=== PATIENT | female | born 1955 | race Caucasian/White ===

== ENCOUNTER 2017-07-28 19:44 | Observation (INO) | payer MEDICAID ==
--- OUTSIDE RECORDS SUMMARY | 2017-07-28 19:47 | XMS REPORT | Clinical Summary ---
:1955 Author Organization [facility] Address [address] [place] [address] Phone Care Team Providers Name Role Phone Unavailable Primary Care Provider Unavailable Allergies Active Allergy Reactions Severity Noted Date Comments Amoxicillin-Pot Clavulanate Diarrhea High 04/21/2017 Basil Swelling High 04/21/2017 Morphine Anaphylaxis High 04/21/2017 Nitroglycerin Nausea And Vomiting High 04/21/2017 IV NITRO ONLY Vancomycin Analogues Nausea And Vomiting High 04/21/2017 Trazodone Nausea And Vomiting 05/12/2017 Current Medications Prescription Sig. Disp. Refills Start End Date Status Date aspirin 81 MG EC Take 81 mg by Active tablet mouth daily. melatonin 3 mg Tab Take 1 tablet (3 30 tablet 0 Active tablet mg total) by mouth 8 nightly. acetaminophen Take 2 tablets 30 tablet 0 05/27/19 Active (TYLENOL) 325 MG (650 mg total) by 8 19 tablet mouth every 6 (six) hours as needed for Pain for up to 360 days. albuterol-ipratrop Inhale 2 puffs by 4 g 0 Active ium (COMBIVENT mouth via inhaler 8 RESPIMAT) 20-100 every 6 (six) mcg/actuation Mist hours. inhaler fluticasone Inhale 1 puff by 1 Inhaler 0 Active (FLOVENT HFA) 110 mouth via inhaler 8 mcg/actuation 2 (two) times inhaler daily. insulin detemir Inject 0.05 mLs (5 1 packet 0 Active (LEVEMIR FLEXPEN) Units total) 8 100 unit/mL (3 mL) subcutaneously InPn injection every morning. collagenase Apply topically 15 g 0 Active (SANTYL) 250 daily. 8 units/g ointment pen needle, Use as directed to 100 each 0 Active diabetic 29 gauge inject long and 8 Ndle short acting insulin.. carvedilol (COREG) Take 1 tablet 60 tablet 0 Active 12.5 MG tablet (12.5 mg total) by 8 mouth 2 (two) times daily. NIFEdipine (ADALAT Take 1 tablet (60 30 tablet 0 Active CC) 60 MG 24 hr mg total) by mouth 8 tablet daily Blood pressure. hydrALAZINE Take 1 tablet (50 120 tablet 0 Active (APRESOLINE) 50 MG mg total) by mouth 8 tablet every 8 (eight) hours Blood pressure. gabapentin Take 1 capsule 90 capsule 0 Active (NEURONTIN) 100 MG (100 mg total) by 8 capsule mouth 3 (three) times daily. torsemide Take 2 tablets (40 60 tablet 0 Active (DEMADEX) 20 MG mg total) by mouth 8 tablet 2 (two) times daily. atorvastatin Take 1 tablet (40 30 tablet 0 Active (LIPITOR) 40 MG mg total) by mouth 8 tablet daily. clopidogrel Take 1 tablet (75 30 tablet 0 Active (PLAVIX) 75 mg mg total) by mouth 8 tablet daily. NICOTINE (NICODERM Place onto the Active CQ TD) skin. lisinopril Take 40 mg by 06/02/19 Discontinued (PRINIVIL,ZESTRIL) mouth daily. 18 40 MG tablet dilTIAZem Take 180 mg by 04/23/19 Discontinued (CARDIZEM CD) 180 mouth daily. 18 MG 24 hr capsule gabapentin Take 100 mg by 06/02/19 Discontinued (NEURONTIN) 100 MG mouth 3 (three) 18 capsule times daily. clopidogrel Take 75 mg by 06/02/19 Discontinued (PLAVIX) 75 mg mouth daily. 18 tablet furosemide (LASIX) Take 40 mg by 06/02/19 Discontinued 40 MG tablet mouth 2 (two) 18 times daily. atorvastatin Take 40 mg by 06/02/19 Discontinued (LIPITOR) 40 MG mouth daily. 18 tablet insulin detemir Inject 30 Units 06/02/19 Discontinued (LEVEMIR) 100 subcutaneously 18 unit/mL injection daily. carvedilol (COREG) Take 1 tablet (25 60 tablet 5 06/02/19 Discontinued 25 MG tablet mg total) by mouth 8 18 2 (two) times daily. nicotine (NICODERM Place 1 patch onto 28 patch 0 06/02/19 Discontinued CQ) 21 mg/24 hr the skin daily for 8 18 patch 30 days. HYDROcodone-acetam Take 1 tablet by 15 tablet 0 06/12/19 inophen (NORCO mouth every 4 8 18 10-325) 10-325 mg (four) hours as per tablet needed for up to 10 days. Max Daily Amount: 6 tablets atorvastatin Take 1 tablet (40 30 tablet 0 07/08/19 Discontinued (LIPITOR) 40 MG mg total) by mouth 8 18 tablet daily. carvedilol (COREG) Take 1 tablet 60 tablet 5 07/08/19 Discontinued 12.5 MG tablet (12.5 mg total) by 8 18 mouth 2 (two) times daily. gabapentin Take 1 capsule 90 capsule 0 07/08/19 Discontinued (NEURONTIN) 100 MG (100 mg total) by 8 18 capsule mouth 3 (three) times daily. torsemide Take 1 tablet (20 60 tablet 0 06/11/19 Discontinued (DEMADEX) 20 MG mg total) by mouth 8 18 tablet 2 (two) times daily Take instead of furosemide. hydrALAZINE Take 1 tablet (50 120 tablet 0 07/08/19 Discontinued (APRESOLINE) 50 MG mg total) by mouth 8 18 tablet every 8 (eight) hours Blood pressure. NIFEdipine (ADALAT Take 1 tablet (60 30 tablet 0 07/08/19 Discontinued CC) 60 MG 24 hr mg total) by mouth 8 18 tablet daily Blood pressure. insulin aspart Short-acting 1 Syringe 0 06/11/19 Discontinued (NOVOLOG) 100 insulin - use 8 18 unit/mL InPn according to sliding scale in patient instructions.. nicotine (NICODERM Place 1 patch onto 28 patch 0 07/02/19 CQ) 21 mg/24 hr the skin daily for 8 18 patch 30 days. clopidogrel Take 1 tablet (75 30 tablet 0 07/08/19 Discontinued (PLAVIX) 75 mg mg total) by mouth 8 18 tablet daily. torsemide Take 2 tablets (40 60 tablet 0 07/08/19 Discontinued (DEMADEX) 20 MG mg total) by mouth 8 18 tablet 2 (two) times daily. magnesium oxide Take 1 tablet (400 30 tablet 0 07/11/19 (MAG-OX) 400 mg mg total) by mouth 8 18 tablet daily for 30 days. Hospital, Clinic, or Other Ordered Dose Route Frequency Start Date End Date Status Facility Administered Medication bumetanide (BUMEX) 2 MG IV Once 06/10/2017 06/10/2017 Ended injection 2 mg Active Problems Problem Noted Date Chronic diastolic CHF (congestive heart failure) ([facility]) 06/10/2017 PVD (peripheral vascular disease) ([facility]) 05/27/2017 S/P CABG (coronary artery bypass graft) 05/26/2017 Normocytic anemia 05/26/2017 Severe protein-calorie malnutrition ([facility]) 05/23/2017 Chronic kidney disease, stage 3 05/21/2017 CAD (coronary artery disease) 05/20/2017 Overview: S/p CABG- PRITCHETT-LAD,SVG-PDA,ramus,OM3 on 05/20/17 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 ([facility]) 05/19/2017 Overview: RLE PVD COPD (chronic obstructive pulmonary disease) ([facility]) 05/14/2017 Controlled type 2 diabetes mellitus with complication, without long-term 05/14 current use of insulin ([facility]) Smoker 05/14/2017 Frequent PVCs 05/12/2017 Resolved Problems Problem Noted Date Resolved Date Recurrent right pleural effusion 05/27/2017 06/10/2017 Diarrhea 05/26/2017 06/10/2017 Chronotropic incompetence 05/21/2017 06/10/2017 Cardiogenic shock ([facility]) 05/21/2017 06/10/2017 Acute kidney injury (nontraumatic) ([facility]) 05/21/2017 06/10/2017 Acute blood loss anemia 05/21/2017 06/10/2017 Acute respiratory failure with hypoxemia ([facility]) 05/21/2017 06/10/2017 Hyperchloremic metabolic acidosis 05/21/2017 06/10/2017 SIRS (systemic inflammatory response syndrome) (HCC) 05/21/2017 06/10/2017 Coronary artery disease involving [place] coronary artery of 05/19/20172017 [place] heart without angina pectoris CHF (congestive heart failure) ([facility]) 05/14/2017 06/10/2017 Acute on chronic respiratory failure with hypoxia (HCC) 05/14/2017 06/10/2017 Benign hypertension with chronic kidney disease, stage III 04/22/20172017 Bigeminal rhythm 04/21/2017 06/10/2017 Respiratory insufficiency 06/10/2017 Encounters Date Type Specialty Care Team Description 07/24/2017 Office Visit Cardiology Mariela Verduzco MD 07/07/2017 Telephone Cardiology Jean Monroe NP Medication Refill 06/10/2017 Office Visit Cardiology Jean Monroe NP Acute on chronic diastolic ACC/AHA stage C congestive heart failure (HCC) 05/28/2017 Procedure Pass 05/27/2017 Procedure Pass 05/27/2017 Surgery Kelly Chang PERIPHERAL ANGIOS / AORTOGRAM 05/23/2017 Orders Only General Internal Medicine 05/20/2017 Procedure Pass 05/20/2017 Surgery Mariela Verduzco BYPASS,AORTO MD [place] CORONARY TYLER/SVG 05/20/2017 Procedure Pass 05/19/2017 Anesthesia Event Ministerio Yeboah MD 05/19/2017 Orders Only Faviola Nascimento MD 05/16/2017 Procedure Pass 05/16/2017 Surgery Kelly Chang L CATH & PCI 05/16/2017 Procedure Pass 05/12/2017 - Hospital Encounter Cardiology Marquez Powers, Bigeminal rhythm 06/01/2017 Sandra Carter MD (Primary Dx);Chronic lea Solano MD pulmonary disease, Kaylyn, unspecified COPD trinh Echeverria MD ([facility]);Smoker;Acute Alex Juarez on chronic MD respiratory failure with hypoxia ([facility]);Acute blood loss anemia;Acute kidney injury (nontraumatic) ([facility]);Acute respiratory failure with hypoxemia ([facility]);S/P CABG x 4;Cardiogenic shock ([facility]);Chronotropic incompetence;Hyperch loremic metabolic acidosis;SIRS (systemic inflammatory response syndrome) ([facility]) 05/12/2017 Anesthesia Event Fer Wood MD 05/12/2017 Orders Only General Internal Medicine 05/12/2017 Procedure Pass 05/12/2017 Surgery Marquez Powers, JENNIFER & ABLATION Sandra Carter MD 04/21/2017 - Hospital Encounter Cardiology Marilee Appleeminal 04/23/2017 MD Mary rhythm;Diabetic Madelin Winchester MD associated with type 2 diabetes mellitus (HCC);Coronary artery disease involving [place] heart without angina pectoris, unspecified vessel or lesion type;Type 2 diabetes mellitus with diabetic nephropathy, with long-term current use of insulin (HCC);Essential hypertension after 07/27/2016 Family History Medical History Relation Name Comments COPD Father Cancer Father Hypertension Father No Known Problem Mother Relation Name Status Comments Father Mother Social History Tobacco Use Types Packs/Day Years Used Date Former Smoker 1 34 Quit: 05/12/2017 Smokeless Tobacco: Never Used Tobacco Cessation: Counseling Given: Yes Alcohol Use Drinks/Week oz/Week Comments No Sex Assigned at Date Recorded Not on file Last Filed Vital Signs Vital Sign Reading Time Taken Blood Pressure 119/56 07/24/2017 11:16 AM CDT Pulse 66 06/01/2017 3:05 PM CASH PROCESSING SPECIALIST Temperature 36.7 C (98 F) 07/24/2017 11:16 AM CDT Respiratory Rate 18 07/24/2017 11:16 AM CDT Oxygen Saturation 96% 07/24/2017 11:16 AM CDT Inhaled Oxygen Concentration - - Weight 73.7 kg (162 lb 6.4 oz) 07/24/2017 11:16 AM CDT Height 170.2 cm (5' 7") 07/24/2017 11:16 AM CDT Body Mass Index 25.44 07/24/2017 11:16 AM CDT Plan of Treatment Date Type Specialty Care Team Description 08/05/2017 Surgery Mariela Verduzco BYPASS,FEMORAL-POPLITEAL MD [place] [address] [facility] [address] [place] [address] 08/05/2017 Procedure Pass 08/05/2017 Hospital Encounter Mariela Verduzco MD [address] [facility] [address] [place] [address] Health Maintenance Due Date Last Done Comments INFLUENZA VACCINE 12/29/2017 Implants Implanted Type Area Lease Attendant Device Expiration Model / Identifier Date Serial / Lot Device Clsr Angio-Seal Vip 8fr [id number] - [id number] Cardiovascular N/A: [employer] 01/28/2018 [id number] / Implanted: Qty: 1 on 05/12/2017 by Sandra Gaytan MD [place] MED:CARDIAC / SURG [id number] Procedures Procedure Name Priority Date/Time Associated Diagnosis Comments PERIPHERAL ANGIOS / 05/27/2017 2:53 PM chest pain AORTOGRAM CASH PROCESSING SPECIALIST DAVIS 05/20/2017 9:05 AM CAOD CASH PROCESSING SPECIALIST ENDOSCOPIC HARVEST,VEIN 05/20/2017 9:05 AM CAOD CASH PROCESSING SPECIALIST BYPASS,AORTO CORONARY 05/20/2017 9:05 AM CAOD TYLER/SVG CASH PROCESSING SPECIALIST L CATH & PCI 05/16/2017 4:42 PM chest pain CASH PROCESSING SPECIALIST EPS & ABLATION 05/12/2017 7:38 PM R49.3-PVC CASH PROCESSING SPECIALIST Case Notes EPS/ABLATION PVC WITH CARTO SOUND Special Needs [facility] [phone]/[facility] after 07/27/2016 Results VASCULAR DIAGRAM -SCAN (07/11/2017 3:30 PM)Only the most recent of6 resultswithin the time period is included.B N P (06/10/2017 12:06 PM)Only the most recent of4 resultswithin the time period is included. Component Value Ref Range BNP 1264 (H) 0 - 100 pg/mL Specimen Performing Laboratory Blood [address] [address] Magnesium (06/10/2017 12:06 PM)Only the most recent of23 resultswithin the time period is included. Component Value Ref Range Magnesium 1.6 1.6 - 2.6 mg/dL Specimen Performing Laboratory Blood [address] [address] Basic Metabolic Panel (06/10/2017 12:06 PM)Only the most recent of25 resultswithin the time period is included. Component Value Ref Range Sodium 137 136 - 145 meq/L Potassium 5.4 (H) 3.5 - 5.1 meq/L Chloride 108 (H) 98 - 107 meq/L CO2 21 (L) 22 - 29 meq/L BUN 39 (H) 7 - 21 mg/dL Creatinine 1.49 (H) 0.57 - 1.25 mg/dL Glucose 219 (H) 70 - 105 mg/dL Calcium 8.5 8.4 - 10.2 mg/dL EGFR 35Comment: ESTIMATED GFR IS NOT ACCURATE mL/min/1.73 sq m CREATININE CLEARANCE IN PREDICTING GLOMERULAR FILTRATION RATE. ESTIMATED GFR IS NOT APPLICABLE FOR DIALYSIS PATIENTS. Specimen Performing Laboratory [address] [address] RHYTHM STRIP - SCAN (06/05/2017 12:40 PM)Only the most recent of5 resultswithin the time period is included.POC-Glucose meter (06/01/2017 11:48 AM)Only the most recent of80 resultswithin the time period is included. Component Value Ref Range POC-Glucose Meter 274 (H)Comment: TESTED AT [address] 70 - 110 mg/[place] [address] Specimen Performing Laboratory [address] [address] CBC (Hemogram only) (06/01/2017 4:07 AM)Only the most recent of2 resultswithin the time period is included. Component Value Ref Range WBC 6.4 3.5 - 10.5 K/L RBC 3.38 (L) 3.93 - 5.22 M/L Hemoglobin 8.7 (L) 11.2 - 15.7 GM/DL Hematocrit 28.2 (L) 34.1 - 44.9 % MCV 83.4 79.4 - 94.8 fL MCH 25.7 25.6 - 32.2 pg MCHC 30.9 (L) 32.2 - 35.5 GM/DL RDW 15.2 (H) 11.7 - 14.4 % Platelets 320 150 - 450 K/CU MM MPV 9.5 9.4 - 12.3 fL nRBC 0 0 - 0 /100 WBC Specimen Performing Laboratory Blood [address] [address] XR chest 1 view portable / bedside (05/31/2017 5:46 AM)Only the most recent of16 resultswithin the time period is included. Specimen Performing Laboratory GE RIS Narrative FINAL REPORT CHEST ONE VIEW HISTORY: Status post ACB COMPARISON: 05/30/2017 FINDINGS: Single portable AP examination of the chest was performed. Small pleural effusions and mild bibasilar atelectasis have improved since yesterday's study. Interstitial opacities in the lungs, unchanged, suggestive of mild residual edema. Cardiac shadow partially obscured. Sternotomy wires are present. No pneumothorax. Signed: Lynda Ring MD Report Verified Date/Time:05/31/2017 09:43:30 Reading Location: [facility] [id number] Ortho Consult Reading Room Procedure Note Interface, External Ris In - 05/31/2017 9:45 AM CASH PROCESSING SPECIALIST FINAL REPORT CHEST ONE VIEW HISTORY: Status post ACB COMPARISON: 05/30/2017 FINDINGS: Single portable AP examination of the chest was performed. Small pleural effusions and mild bibasilar atelectasis have improved since yesterday's study. Interstitial opacities in the lungs, unchanged, suggestive of mild residual edema. Cardiac shadow partially obscured. Sternotomy wires are present. No pneumothorax. Signed: Lynda Ring MD Report Verified Date/Time: 05/31/2017 09:43:30 Reading Location: [facility] C013X Ortho Consult Reading Room Calcium, Ionized (05/31/2017 4:04 AM)Only the most recent of21 resultswithin the time period is included. Component Value Ref Range Calcium, Ion 1.10 (L) 1.12 - 1.27 mmol/L pH, Blood 7.42 Specimen Performing Laboratory Blood - Arm, [address] [address] CBC with platelet count + automated diff (05/31/2017 4:04 AM)Only the most recent of20 resultswithin the time period is included. Component Value Ref Range WBC 5.9 3.5 - 10.5 K/L RBC 3.16 (L) 3.93 - 5.22 M/L Hemoglobin 8.2 (L) 11.2 - 15.7 GM/DL Hematocrit 26.6 (L) 34.1 - 44.9 % MCV 84.2 79.4 - 94.8 fL MCH 25.9 25.6 - 32.2 pg MCHC 30.8 (L) 32.2 - 35.5 GM/DL RDW 15.1 (H) 11.7 - 14.4 % Platelets 320 150 - 450 K/CU MM MPV 9.6 9.4 - 12.3 fL nRBC 0 0 - 0 /100 WBC % Neutros 65 % % Lymphs 24 % % Monos 8 % % Eos 2 % % Baso 1 % # Neutros 3.84 1.56 - 6.13 K/L # Lymphs 1.41 1.18 - 3.74 K/L # Monos 0.47 (H) 0.24 - 0.36 K/L # Eos 0.11 0.04 - 0.36 K/L # Baso 0.05 0.01 - 0.08 K/L Immature Granulocytes-Relative 1 0 - 1 % Specimen Performing Laboratory Blood - Arm, [address] [address] CBC with platelet count + automated diff (05/31/2017 4:04 AM)Only the most recent of20 resultswithin the time period is included. Specimen Performing Laboratory Blood Narrative The following orders were created for panel order CBC with platelet count + automated diff. Procedure Abnormality Status --------- ------ CBC with platelet count ...[[id number]]AbnormalFinal result Please view results for these tests on the individual orders. Phosphorus (05/31/2017 4:04 AM)Only the most recent of22 resultswithin the time period is included. Component Value Ref Range Phosphorus 3.3 2.3 - 4.7 mg/dL Specimen Performing Laboratory Blood - Arm, [address] [address] CARDIAC CATH REPORT - SCAN (05/29/2017 8:50 PM)Only the most recent of3 resultswithin the time period is included.Comprehensive metabolic panel (2017 4:23 AM) Component Value Ref Range Protein, Total 5.9 (L) 6.0 - 8.3 gm/dL Albumin 2.7 (L) 3.5 - 5.0 g/dL Alkaline Phosphatase 130 40 - 150 U/L Total Bilirubin 0.3 0.2 - 1.2 mg/dL Sodium 135 (L) 136 - 145 meq/L Potassium 4.7 3.5 - 5.1 meq/L Chloride 105 98 - 107 meq/L CO2 24 22 - 29 meq/L BUN 42 (H) 7 - 21 mg/dL Creatinine 1.78 (H) 0.57 - 1.25 mg/dL Glucose 129 (H) 70 - 105 mg/dL Calcium 8.5 8.4 - 10.2 mg/dL AST 23 5 - 34 U/L ALT 15 6 - 55 U/L EGFR 29Comment: ESTIMATED GFR IS NOT ACCURATE mL/min/1.73 sq m CREATININE CLEARANCE IN PREDICTING GLOMERULAR FILTRATION RATE. ESTIMATED GFR IS NOT APPLICABLE FOR DIALYSIS PATIENTS. Specimen Performing Laboratory Blood - Arm, Right [address] [address] TRANSFUSION SERVICE REPORT - SCAN (05/28/2017 5:41 PM)Only the most recent of5 resultswithin the time period is included.PERIPHERAL VASCULAR REPORT - SCAN ( 11:22 AM)Only the most recent of2 resultswithin the time period is included.Carotid doppler bilateral (05/28/2017 8:15 AM) Component Value Ref Range Ejection Fraction Specimen Performing Laboratory [facility] ECHO HEART[facility] Impressions Right Impression 1. There is 50-69% diameter reduction (approximately 51% by 2-D measurement) in the internal carotid artery with heterogeneous plaque, a peak velocity of 149 cm/sec and an ICA/CCA peak systolic velocity ratio of 2.03. 2. There is non-occluding plaque in the external carotid artery. 3. There is non-occluding plaque in the common carotid artery. 4. The vertebral artery flow is antegrade and normal. 5. The subclavian artery is within normal limits where visualized. 6. Incidental finding of deep venous thrombosis in the jugular vein. Left Impression 1. There is 50-69% diameter reduction (approximately 61% by 2-D measurement) in the internal carotid artery with heterogeneous plaque, a peak velocity of 165 cm/sec and an ICA/CCA peak systolic velocity ratio of 1.88. 2. There is non-occluding plaque in the external carotid artery. 3. There is non-occluding plaque in the common carotid artery. 4. The vertebral artery flow is antegrade and normal. 5. There is >50% stenosis in the subclavian artery with a velocity of 256 cm/sec. Conclusions Summary Carotid duplex scanning and color flow imaging were performed bilaterally. The arteries were adequately visualized. The right internal carotid artery had 50-69% hemodynamically significant stenosis (approximately 51% by 2-D measurement) with heterogeneous plaque. The left internal carotid artery had 50-69% hemodynamically significant stenosis (approximately 61% by 2-D measurement) with heterogeneous shadowing plaque. The vertebral artery flow was antegrade and normal bilaterally. The right subclavian artery was patent with normal flow where visualized. There was >50% stenosis of the left subclavian artery. 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 Signature Velocities are measured in cm/s ; Diameters are measured in cm Carotid Right Measurements + +----+----+-----+ + + + !Location !PSV !EDV !Angle!%Stenosis 2D!%Stenosis Doppler! Tortuosity ! + +----+----+-----+ + + + !Prox CCA !88.5!15.2!60 !! ! ! + +----+----+-----+ + + + !Dist CCA !73.3!14.1!60 !! ! ! + +----+----+-----+ + + + !Prox ICA !149 !57.4!60 !! ! ! + +----+----+-----+ + + + !Dist ICA !134 !50.3!60 !! ! ! + +----+----+-----+ + + + !Prox ECA !162 !0 !56 !! ! ! + +----+----+-----+ + + + !Vertebral!96.6!25.1!60 !! ! ! + +----+----+-----+ + + + !Prox Subclavian!144 !0 !60 !! ! ! + +----+----+-----+ + + + - There is antegrade vertebral flow noted on the right side. - Additional Measurements:ICAPSV/CCAPSV 2.03.ICAEDV/CCAEDV 3.78. Carotid Left Measurements + +----+----+-----+ + + + !Location !PSV !EDV !Angle!%Stenosis 2D!%Stenosis Doppler! Tortuosity ! + +----+----+-----+ + + + !Prox CCA !89.6!18.9!60 !! ! ! + +----+----+-----+ + + + !Dist CCA !88!25.1!60 !! ! ! + +----+----+-----+ + + + !Prox ICA !165 !38.3!60 !! ! ! + +----+----+-----+ + + + !Dist ICA !127 !37.8!56 !! ! ! + +----+----+-----+ + + + !Prox ECA !189 !0 !60 !! ! ! + +----+----+-----+ + + + !Vertebral!107 !24.6!56 !! ! ! + +----+----+-----+ + + + !Prox Subclavian!256 !0 !60 !! ! ! + +----+----+-----+ + + + - There is antegrade vertebral flow noted on the left side. - Additional Measurements:ICAPSV/CCAPSV 1.88.ICAEDV/CCAEDV 2.03. Narrative [facility] - Carotid Duplex Study Demographics Patient Name CHRISTY GREER Date of Study 05/28/2017 BETO [id number] Age 62 Visit Number [id number] Gender Female Accession Number [id number] Date of 1955 [facility] [place] Room Number 1014 Patricia SonographerSmonique Richard. eJremy Perez MD, Physician RPVI Procedure Type of Study: Cerebral: Carotid, CAROTID DOPPLER, BILATERAL. Indications for Study:Right Carotid Bruit. Patient Status:Routine. Study Location:Vascular Lab. Technical Quality:Adequate visualization. - Results were reported to:Dr. Lopez @ [id number]. Risk Factors History of Disease + + + + !Diagnosis !Date!Comments ! + + + + !History/Risk!05/13/2017!S/P Heart stent placement 05/12/17, Cardiomegaly,! 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 + + + + Procedure Note Interface, External Ris In - 05/28/2017 10:59 AM CASH PROCESSING SPECIALIST [facility] - Carotid Duplex Study Demographics Patient Name CHRISTY GREER Date of Study 05/28/2017 BETO Age 62 Visit Number [id number] Gender Female Accession Number [id number] Date of 1955 Referring Jeremy Ordoñez Room Number 1014 Physician John Patient Advocate Macario Zhu Interpreting Gurmeet Perez MD, Physician RPBRUNO Procedure Type of Study: Cerebral: Carotid, CAROTID DOPPLER, BILATERAL. Indications for Study:Right Carotid Bruit. Patient Status:Routine. Study Location:Vascular Lab. Technical Quality:Adequate visualization. - Results were reported to:Dr. Lopez @ [phone]. Risk Factors History of Disease + + + + !Diagnosis !Date !Comments ! + + + + !History/Risk !05/13/2017!S/P Heart stent placement 05/12/17, Cardiomegaly,! !Factors: ! !CHF, COPD, CAD, DM, HLD, HTN, Smoker, Left great! ! ! 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 + + + + Impressions Right Impression 1. There is 50-69% diameter reduction (approximately 51% by 2-D measurement) in the internal carotid artery with heterogeneous plaque, a peak velocity of 149 cm/sec and an ICA/CCA peak systolic velocity ratio of 2.03. 2. There is non-occluding plaque in the external carotid artery. 3. There is non-occluding plaque in the common carotid artery. 4. The vertebral artery flow is antegrade and normal. 5. The subclavian artery is within normal limits where visualized. 6. Incidental finding of deep venous thrombosis in the jugular vein. Left Impression 1. There is 50-69% diameter reduction (approximately 61% by 2-D measurement) in the internal carotid artery with heterogeneous plaque, a peak velocity of 165 cm/sec and an ICA/CCA peak systolic velocity ratio of 1.88. 2. There is non-occluding plaque in the external carotid artery. 3. There is non-occluding plaque in the common carotid artery. 4. The vertebral artery flow is antegrade and normal. 5. There is >50% stenosis in the subclavian artery with a velocity of 256 cm/sec. Conclusions Summary Carotid duplex scanning and color flow imaging were performed bilaterally. The arteries were adequately visualized. The right internal carotid artery had 50-69% hemodynamically significant stenosis (approximately 51% by 2-D measurement) with heterogeneous plaque. The left internal carotid artery had 50-69% hemodynamically significant stenosis (approximately 61% by 2-D measurement) with heterogeneous shadowing plaque. The vertebral artery flow was antegrade and normal bilaterally. The right subclavian artery was patent with normal flow where visualized. There was >50% stenosis of the left subclavian artery. 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 Signature Velocities are measured in cm/s ; Diameters are measured in cm Carotid Right Measurements + +----+----+-----+ + + + !Location !PSV !EDV !Angle!%Stenosis 2D!%Stenosis Doppler!Tortuosity ! + +----+----+-----+ + + + !Prox CCA !88.5!15.2!60 ! ! ! ! + +----+----+-----+ + + + !Dist CCA !73.3!14.1!60 ! ! ! ! + +----+----+-----+ + + + !Prox ICA !149 !57.4!60 ! ! ! ! + +----+----+-----+ + + + !Dist ICA !134 !50.3!60 ! ! ! ! + +----+----+-----+ + + + !Prox ECA !162 !0 !56 ! ! ! ! + +----+----+-----+ + + + !Vertebral !96.6!25.1!60 ! ! ! ! + +----+----+-----+ + + + !Prox Subclavian!144 !0 !60 ! ! ! ! + +----+----+-----+ + + + - There is antegrade vertebral flow noted on the right side. - Additional Measurements:ICAPSV/CCAPSV 2.03.ICAEDV/CCAEDV 3.78. Carotid Left Measurements + +----+----+-----+ + + + !Location !PSV !EDV !Angle!%Stenosis 2D!%Stenosis Doppler!Tortuosity ! + +----+----+-----+ + + + !Prox CCA !89.6!18.9!60 ! ! ! ! + +----+----+-----+ + + + !Dist CCA !88 !25.1!60 ! ! ! ! + +----+----+-----+ + + + !Prox ICA !165 !38.3!60 ! ! ! ! + +----+----+-----+ + + + !Dist ICA !127 !37.8!56 ! ! ! ! + +----+----+-----+ + + + !Prox ECA !189 !0 !60 ! ! ! ! + +----+----+-----+ + + + !Vertebral !107 !24.6!56 ! ! ! ! + +----+----+-----+ + + + !Prox Subclavian!256 !0 !60 ! ! ! ! + +----+----+-----+ + + + - There is antegrade vertebral flow noted on the left side. - Additional Measurements:ICAPSV/CCAPSV 1.88.ICAEDV/CCAEDV 2.03. POC ACTIVATED CLOTTING TIME (05/27/2017 6:08 PM)Only the most recent of15 resultswithin the time period is included. Component Value Ref Range Activated Clotting Time 147Comment: TESTED AT [address] sec [address] Specimen Performing Laboratory Blood [address] [address] Type and screen, automated (05/27/2017 4:12 AM)Only the most recent of3 resultswithin the time period is included. Component Value Ref Range ABO/RH AUTOMATED (BEAKER) O POSITIVE Ab Scrn NEGATIVE Specimen Performing Laboratory Blood [address] [address] ECHOCARDIOGRAM REPORT - SCAN (05/23/2017 5:09 PM)Only the most recent of4 resultswithin the time period is included.Oxygen saturation, measured (2017 12:23 PM)Only the most recent of5 resultswithin the time period is included. Component Value Ref Range O2 Saturation (Measured) 94.5 % Specimen Performing Laboratory Blood - Line, Arterial [address] [address] Prealbumin (05/23/2017 12:23 PM)Only the most recent of2 resultswithin the time period is included. Component Value Ref Range Prealbumin 10 (L)Comment: Specimen slightly hemolyzed 14 - 45 mg/dL Specimen Performing Laboratory Blood - Line, Arterial [facility] [address] [address] 2D Echo W/Doppler(CW/PW/Color) (05/23/2017 11:17 AM)Only the most recent of2 resultswithin the time period is included. Component Value Ref Range Ejection Fraction Specimen Performing Laboratory SLE ECHO HEARTLAB MKCKESSON CPACS Narrative Transthoracic Echocardiography Report (TTE) Demographics Patient Name Elif GREER of Study 05/23/2017 BETO [id number] Female Visit Number [id number] Room Number 2C26 Number Date of Birth1955Referring Physician Marquez Flores Age62 year(s)Patient Advocate Gali Christensen RDCS AnalystAlex Erica Interpreting lOeksandr Flores, Physician Procedure Type of Study TTE procedure:2DECHO W DOPPLER(CW/PW/COLOR) (STAT) Indications:Hypotension or hemodynamic instability. Clinical History COPD;CARDIOMAGALY;CAD;DM;HLD;HTN;SMOKER;BYPASS HGB 8.8 HCT 26.6 % Height: 67 inches Weight: 78.02 kg (172 lbs) BSA: 1.9 m^2 BMI: 26.94 kg/m^2 HR: 50 bpm Summary Moderate concentric LV hypertrophy. The following segment(s) appear hypokinetic: apex . The other segments contract normally. Global LV systolic function normal . Estimated LVEF by qualitative assessment is normal (55-60%) . Grade 2 diastolic dysfunction (moderately increased LA pressure). The left ventricle is chamber size (by vol index) is moderately enlarged (female - LVED vol -71-80ml/m2). Aortic root size (SInus of Valsalva diameter) is normal . Moderate concentric LV hypertrophy. The following segment(s) appear hypokinetic: apex . The other segments contract normally. Global LV systolic function normal . Estimated LVEF by qualitative assessment is normal (55-60%) . Grade 2 diastolic dysfunction (moderately increased LA pressure). The left ventricle is chamber size (by vol index) is moderately enlarged (female - LVED vol -71-80ml/m2). No evidence of pericardial effusion. The estimated RA pressure by IVC dynamics 11-15mmHg . Estimated peak systolic PA pressure is 30-35 mmHg . Mild aortic stenosis. Previous Study Compared to the previous study there was no significant change. Signature Findings Left Ventricle Moderate concentric LV hypertrophy. The following segment(s) appear hypokinetic: apex . The other segments contract normally. Global LV systolic function normal . Estimated LVEF by qualitative assessment is normal (55-60%) . Grade 2 diastolic dysfunction (moderately increased LA pressure). The left ventricle is chamber size (by vol index) is moderately enlarged (female - LVED vol -71-80ml/m2). Left AtriumLA size is severely enlarged (>48 ml/m2 ) . Right VentricleRV chamber size is normal . Global RV systolic function is depressed . Right Atrium RA size is dilated. Aortic Valve Mild AoV cusp thickening. A trace of aortic regurgitation. Mild aortic stenosis. Mild AoV cusp calcification. Mitral Valve Mild MV leaflet thickening. Mild mitral regurgitation. Tricuspid ValveMild tricuspid regurgitation. Estimated peak systolic PA pressure is 30-35 mmHg . Pulmonic Valve Normal PV structure and function by limited views and Doppler. AortaAortic root size (SInus of Valsalva diameter) is normal . PericardiumNo evidence of pericardial effusion. IVC/SVC/PA/PV/PleuralThe estimated RA pressure by IVC dynamics 11-15mmHg . Chambers/Structures Left Atrium LA Volume: 125.29 mlLA Area: 32.52 cm^ 2 LA Vol. Index: 66 ml/m^2 Left Ventricle LVIDd: 5.27 cm LV Septum Diastolic: 1.62 cm LV PW Diastolic: 1.53 cm LVEDV Silverman's:146.69 ml LVEDVI: 77 ml/m^2 LVOT Diameter: 2.12 cm Right Atrium RA Vol. (Sngl Plane): 74.88 ml Aorta Ao Root S of Patty.: 4.13 cm Doppler/Quantitative Measurements Aortic Valve Peak Velocity: 2.19 m/sMean Velocity: 1.42 m/s Peak Gradient: 19.24 mmHgMean Gradient: 9.42 mmHg AV Area (continuity): 1.55 cm^2 AV VTI: 50.22 cm AV DVI: 0.44 LVOT Peak Velocity: 1.01 m/s Peak Gradient: 4.06 mmHg Mean Velocity: 0.57 m/s Mean Gradient: 1.65 mmHg LVOT Diameter: 2.12 cmLVOT VTI: 22.03 cm LVOT Area: 3.53 cm^2LVOT SV:77.72 ml LVOT CO: 3.89 l/min LVOT CI: 2.05 l/min/m^2 Procedure Note Interface, External Ris In - 05/23/2017 4:26 PM CASH PROCESSING SPECIALIST Transthoracic Echocardiography Report (TTE) Demographics Patient Name CHRISTY GREER Date of Study 05/23/2017 BETO Gender Female Visit Number [id number] Race Unknown Room Number 2C26 Number Date of 1955 Referring Physician Marquez Flores Age 62 year(s) Patient Advocate Gali Christensen RDCS Automobile Locator Abhay Maldonado Interpreting Oleksandr Flores, Physician Procedure Type of Study TTE procedure:2DECHO W DOPPLER(CW/PW/COLOR) (STAT) Indications:Hypotension or hemodynamic instability. Clinical History COPD;CARDIOMAGALY;CAD;DM;HLD;HTN;SMOKER;BYPASS HGB 8.8 HCT 26.6 % Height: 67 inches Weight: 78.02 kg (172 lbs) BSA: 1.9 m^2 BMI: 26.94 kg/m^2 HR: 50 bpm Summary Moderate concentric LV hypertrophy. The following segment(s) appear hypokinetic: apex . The other segments contract normally. Global LV systolic function normal . Estimated LVEF by qualitative assessment is normal (55-60%) . Grade 2 diastolic dysfunction (moderately increased LA pressure). The left ventricle is chamber size (by vol index) is moderately enlarged (female - LVED vol -71-80ml/m2). Aortic root size (SInus of Valsalva diameter) is normal . Moderate concentric LV hypertrophy. The following segment(s) appear hypokinetic: apex . The other segments contract normally. Global LV systolic function normal . Estimated LVEF by qualitative assessment is normal (55-60%) . Grade 2 diastolic dysfunction (moderately increased LA pressure). The left ventricle is chamber size (by vol index) is moderately enlarged (female - LVED vol -71-80ml/m2). No evidence of pericardial effusion. The estimated RA pressure by IVC dynamics 11-15mmHg . Estimated peak systolic PA pressure is 30-35 mmHg . Mild aortic stenosis. Previous Study Compared to the previous study there was no significant change. Signature Findings Left Ventricle Moderate concentric LV hypertrophy. The following segment(s) appear hypokinetic: apex . The other segments contract normally. Global LV systolic function normal . Estimated LVEF by qualitative assessment is normal (55-60%) . Grade 2 diastolic dysfunction (moderately increased LA pressure). The left ventricle is chamber size (by vol index) is moderately enlarged (female - LVED vol -71-80ml/m2). Left Atrium LA size is severely enlarged (>48 ml/m2) . Right Ventricle RV chamber size is normal . Global RV systolic function is depressed . Right Atrium RA size is dilated. Aortic Valve Mild AoV cusp thickening. A trace of aortic regurgitation. Mild aortic stenosis. Mild AoV cusp calcification. Mitral Valve Mild MV leaflet thickening. Mild mitral regurgitation. Tricuspid Valve Mild tricuspid regurgitation. Estimated peak systolic PA pressure is 30-35 mmHg . Pulmonic Valve Normal PV structure and function by limited views and Doppler. Aorta Aortic root size (SInus of Valsalva diameter) is normal . Pericardium No evidence of pericardial effusion. IVC/SVC/PA/PV/Pleural The estimated RA pressure by IVC dynamics 11-15mmHg . Chambers/Structures Left Atrium LA Volume: 125.29 ml LA Area: 32.52 cm^2 LA Vol. Index: 66 ml/m^2 Left Ventricle LVIDd: 5.27 cm LV Septum Diastolic: 1.62 cm LV PW Diastolic: 1.53 cm LVEDV Silverman's:146.69 ml LVEDVI: 77 ml/m^2 LVOT Diameter: 2.12 cm Right Atrium RA Vol. (Sngl Plane): 74.88 ml Aorta Ao Root S of Patty.: 4.13 cm Doppler/Quantitative Measurements Aortic Valve Peak Velocity: 2.19 m/s Mean Velocity: 1.42 m/s Peak Gradient: 19.24 mmHg Mean Gradient: 9.42 mmHg AV Area (continuity): 1.55 cm^2 AV VTI: 50.22 cm AV DVI: 0.44 LVOT Peak Velocity: 1.01 m/s Peak Gradient: 4.06 mmHg Mean Velocity: 0.57 m/s Mean Gradient: 1.65 mmHg LVOT Diameter: 2.12 cm LVOT VTI: 22.03 cm LVOT Area: 3.53 cm^2 LVOT SV:77.72 ml LVOT CO: 3.89 l/min LVOT CI: 2.05 l/min/m^2 ECG 12 lead (05/23/2017 10:42 AM)Only the most recent of3 resultswithin the time period is included. Specimen Performing Laboratory [facility] Ventricular Rate 50 BPM Atrial Rate 50 BPM P-R Interval 174 ms QRS Duration 114 ms Q-T Interval 516 ms QTC Calculation(Bazett) 470 ms P [place] 67 degrees R [place] 29 degrees T [place] 40 degrees Sinus bradycardia Prolonged QT Non-specific intra-ventricular conduction delay Abnormal ECG When compared with ECG of 18-MAY-2017 08:34, Premature ventricular complexes are no longer Present Vent. rate has decreased BY30 BPM Minimal criteria for Anterior infarct are no longer Present ST no longer depressed in Lateral leads T wave inversion no longer evident in Lateral leads Confirmed by MD POTTS JORGE ([id number]) on 05/23/2017 2:56:57 PM Procedure Note Interface, External Ris In - 05/23/2017 2:57 PM CASH PROCESSING SPECIALIST Ventricular Rate 50 BPM Atrial Rate 50 BPM P-R Interval 174 ms QRS Duration 114 ms Q-T Interval 516 ms QTC Calculation(Bazett) 470 ms P [place] 67 degrees R [place] 29 degrees T [place] 40 degrees Sinus bradycardia Prolonged QT Non-specific intra-ventricular conduction delay Abnormal ECG When compared with ECG of 18-MAY-2017 08:34, Premature ventricular complexes are no longer Present Vent. rate has decreased BY 30 BPM Minimal criteria for Anterior infarct are no longer Present ST no longer depressed in Lateral leads T wave inversion no longer evident in Lateral leads Confirmed by MD DELROY, ANNE ([id number]) on 05/23/2017 2:56:57 PM Blood gas, arterial (05/23/2017 3:11 AM)Only the most recent of20 resultswithin the time period is included. Component Value Ref Range pH, Arterial 7.40 7.35 - 7.45 pCO2, Arterial 40 35 - 45 mmHg pO2, Arterial 63 (L) 80 - 90 mmHg O2 Sat, Arterial 92.3 (L) 96.0 - 97.0 % HCO3, Arterial 24 21 - 29 mmol/L Base Excess, Arterial -0.6 -2.0 - 3.0 mmol/L Patient Temperature 36.8 C FIO2 36.0 % Specimen Performing Laboratory Blood, [place] [address] Prepare RBC (05/21/2017 11:54 PM) Component Value Ref Range CROSSMATCH COMPATIBLE Unit ABO O Pos UNIT NUMBER [id number] Status RETURNED FROM ISSUE Blood Bank Product RED BLOOD CELLS PRODUCT CODE [id number] CROSSMATCH COMPATIBLE Unit ABO O Pos UNIT NUMBER [id number] Status RETURNED FROM ISSUE Blood Bank Product RED BLOOD CELLS PRODUCT CODE [id number] CROSSMATCH COMPATIBLE Unit ABO O Pos UNIT NUMBER [id number] Status TRANSFUSED Blood Bank Product RED BLOOD CELLS PRODUCT CODE [id number] CROSSMATCH COMPATIBLE Unit ABO O Pos UNIT NUMBER [id number] Status TRANSFUSED Blood Bank Product RED BLOOD CELLS PRODUCT CODE [id number] Specimen Performing Laboratory [facility] (ABG,NA,K,H&H,GLUCOSE) (05/21/2017 11:40 PM)Only the most recent of10 resultswithin the time period is included. Specimen Performing Laboratory Blood, Arterial Narrative The following orders were created for panel order [facility] CRITICAL LABS (ABG,NA,K,H&H,GLUCOSE). Procedure Abnormality Status --------- ------ Blood gas, arterial[[id number]]AbnormalFinal result Sodium Na-Stat Lab[[id number]] AbnormalFinal result Potassium-Stat Lab[[id number]] NormalFinal result Glucose-Stat Lab[[id number]] AbnormalFinal result HGB/HCT (H&H)-Stat Lab[[id number]] AbnormalFinal result Please view results for these tests on the individual orders. Potassium-Stat Lab (05/21/2017 11:40 PM)Only the most recent of13 resultswithin the time period is included. Component Value Ref Range Potassium 5.5 3.6 - 5.5 meq/L Specimen Performing Laboratory Blood, Arterial [address] [address] Sodium Na-Stat Lab (05/21/2017 11:40 PM)Only the most recent of11 resultswithin the time period is included. Component Value Ref Range Sodium 134 (L) 135 - 148 meq/L Specimen Performing Laboratory Blood, [address] [address] Glucose-Stat Lab (05/21/2017 11:40 PM)Only the most recent of11 resultswithin the time period is included. Component Value Ref Range Glucose 119 (H) 70 - 110 mg/dL Specimen Performing Laboratory Blood, [address] [address] HGB/HCT (H&H)-Stat Lab (05/21/2017 11:40 PM)Only the most recent of11 resultswithin the time period is included. Component Value Ref Range Hemoglobin 8.8 (L) 12.0 - 15.0 g/dL Hematocrit 26.0 (L) 36.0 - 45.0 % Specimen Performing Laboratory Blood, [address] [address] Lactic acid, arterial, whole blood (05/21/2017 11:40 PM)Only the most recent of3 resultswithin the time period is included. Component Value Ref Range Lactate, Art 1.0Comment: Specimen slightly hemolyzed 0.5 - 2.2 mmol/L Specimen Performing Laboratory Blood, Arterial [facility] [address] [address] Narrative Effective 08/02/2015: Units/Reference Range Change New: 0.5-2.2 mmol/LPrevious: 5-20 mg/dL Limited 2D Echocardiogram (05/21/2017 12:10 PM)Only the most recent of2 resultswithin the time period is included. Component Value Ref Range Ejection Fraction Specimen Performing Laboratory SLE ECHO HEARTLAB MKCKESSON CPACS Narrative Transthoracic Echocardiography Report (TTE) Demographics Patient Name Elif GREER of Study 05/21/2017 BETO [id number] Female Visit Number [id number] Room Number 2C26 Number Date of Birth1955Referring Physician Bernardo Vargas Age62 year(s)Patient Advocate Doug Frey, Interpreting Julien Panda MD Procedure Type of Study TTE procedure:LIMITED 2D ECHOCARDIOGRAM (Routine) Indications:Shortness of breath. Clinical History HGB 8.8 HCT 28.3 % CARDIOMEGALY COPD HTN HLD EPS/ABLATION 05/20/17 CORONARY BYPASS 05/20/17 SMOKER DM CAD INDICATION: ASSESS LVEF/RV/EFFUSION Contrast Medium: Definity. Height: 67 inches Weight: 78.02 kg (172 lbs) BSA: 1.9 m^2 BMI: 26.94 kg/m^2 HR: 64 bpm BP: 142/53 mmHg Summary 1. The following segment(s) appear hypokinetic: apex, mid antereoseptum and apical anterior . The other segments contract normally. 2. Global LV systolic function lower limits of normal . LVEF by Silverman's method of disk assessment is lower limits of normal (50-55%) . 3. Global RV systolic function is severely reduced . Previous Study Compared to the previous study there was no significant change. Signature Findings Technical Quality: Technically difficult exam. Left Ventricle Limited 2D exam (no Doppler) to address study indication. LV endocardium is adequately visualized with IV ultrasound enhancing agent. The left ventricle is chamber size (by vol index) is moderately enlarged (female - LVED vol -71-80ml/m2). Mild concentric LV hypertrophy. Septal motion is abnormal, likely related to prior cardiac surgery . The following segment(s) appear hypokinetic: apex, mid antereoseptum and apical anterior . The other segments contract normally. Global LV systolic function lower limits of normal . LVEF by Silverman's method of disk assessment is lower limits of normal (50-55% ) . The LVEF was measured using Silverman's bi-plane method of disk . Left AtriumLA size is normal (16-34 ml/m2) . Right VentricleGlobal RV systolic function is severely reduced . Right Atrium RA cavity size is normal . Aortic Valve Mild AoV cusp thickening. Aortic annulus appears calcified . Mitral Valve Mild MV leaflet thickening. Tricuspid ValveTV structure is normal. Pulmonic Valve PV is not visualized. AortaAortic root size (SInus of Valsalva diameter) is normal . PericardiumNo pericardial effusion is visualized. IVC/SVC/PA/PV/PleuralThe inferior vena cava is adequately visualized. The inferior vena cava size is normal . The estimated RA pressure by IVC dynamics 11-15mmHg . Chambers/Structures Left Atrium LA Volume: 41.06 ml LA Area: 15.53 cm^ 2 LA Vol. Index: 22 ml/m^2 Left Ventricle LVIDd: 4.94 cm LVIDs: 3.37 cm LV Septum Diastolic: 1.29 cm LV PW Diastolic: 1.26 cmLV FS: 31.8 % LVEDV Silverman's:142.67 ml LVESV Silverman's:68.38 mlLVEDVI: 75 ml/ m^2 LVEF Silverman's: 52.1 %LVESVI: 36 ml/m^2 LVOT Diameter: 1.85 cm Aorta Ao Root S of Patty.: 2.48 cmAscending Aorta: 2.82 cm Doppler/Quantitative Measurements LVOT LVOT Diameter: 1.85 cm LVOT Area: 2.69 cm^2 Procedure Note Interface, External Ris In - 05/21/2017 4:56 PM CASH PROCESSING SPECIALIST Transthoracic Echocardiography Report (TTE) Demographics Patient Name CHRISTY GREER Date of Study 05/21/2017 BETO Gender Female Visit Number [id number] Race Unknown Room Number 2C26 Number Date of 1955 Referring Physician Bernardo Vargas Age 62 year(s) Patient Advocate Doug Camp Automobile Locator Pamela Frey, Interpreting Edith Jiménez [facility] Physician Procedure Type of Study TTE procedure:LIMITED 2D ECHOCARDIOGRAM (Routine) Indications:Shortness of breath. Clinical History HGB 8.8 HCT 28.3 % CARDIOMEGALY COPD HTN HLD EPS/ABLATION 05/20/17 CORONARY BYPASS 05/20/17 SMOKER DM CAD INDICATION: ASSESS LVEF/RV/EFFUSION Contrast Medium: Definity. Height: 67 inches Weight: 78.02 kg (172 lbs) BSA: 1.9 m^2 BMI: 26.94 kg/m^2 HR: 64 bpm BP: 142/53 mmHg Summary 1. The following segment(s) appear hypokinetic: apex, mid antereoseptum and apical anterior . The other segments contract normally. 2. Global LV systolic function lower limits of normal . LVEF by Silverman's method of disk assessment is lower limits of normal (50-55%) . 3. Global RV systolic function is severely reduced . Previous Study Compared to the previous study there was no significant change. Signature Findings Technical Quality: Technically difficult exam. Left Ventricle Limited 2D exam (no Doppler) to address study indication. LV endocardium is adequately visualized with IV ultrasound enhancing agent. The left ventricle is chamber size (by vol index) is moderately enlarged (female - LVED vol -71-80ml/m2). Mild concentric LV hypertrophy. Septal motion is abnormal, likely related to prior cardiac surgery . The following segment(s) appear hypokinetic: apex, mid antereoseptum and apical anterior . The other segments contract normally. Global LV systolic function lower limits of normal . LVEF by Silverman's method of disk assessment is lower limits of normal (50-55%) . The LVEF was measured using Silverman's bi-plane method of disk . Left Atrium LA size is normal (16-34 ml/m2) . Right Ventricle Global RV systolic function is severely reduced . Right Atrium RA cavity size is normal . Aortic Valve Mild AoV cusp thickening. Aortic annulus appears calcified . Mitral Valve Mild MV leaflet thickening. Tricuspid Valve TV structure is normal. Pulmonic Valve PV is not visualized. Aorta Aortic root size (SInus of Valsalva diameter) is normal . Pericardium No pericardial effusion is visualized. IVC/SVC/PA/PV/Pleural The inferior vena cava is adequately visualized. The inferior vena cava size is normal . The estimated RA pressure by IVC dynamics 11-15mmHg . Chambers/Structures Left Atrium LA Volume: 41.06 ml LA Area: 15.53 cm^2 LA Vol. Index: 22 ml/m^2 Left Ventricle LVIDd: 4.94 cm LVIDs: 3.37 cm LV Septum Diastolic: 1.29 cm LV PW Diastolic: 1.26 cm LV FS: 31.8 % LVEDV Silverman's:142.67 ml LVESV Silverman's:68.38 ml LVEDVI: 75 ml/m^2 LVEF Silverman's: 52.1 % LVESVI: 36 ml/m^2 LVOT Diameter: 1.85 cm Aorta Ao Root S of Patty.: 2.48 cm Ascending Aorta: 2.82 cm Doppler/Quantitative Measurements LVOT LVOT Diameter: 1.85 cm LVOT Area: 2.69 cm^2 Bronchial culture + gram stain (05/21/2017 11:48 AM) Component Value Ref Range Result Result 4+ Bordetella bronchiseptica (A) Gram Stain Result 1+ WBCs Gram Stain Result <1+ gram positive cocci in pairs Gram Stain Result 1+ gram variable rods Specimen Performing Laboratory BAL - Lung, Left Lower Lobe [address] [address] Narrative 1+ Normal respiratory todd present Organism Antibiotic Method Susceptibility Bordetella bronchiseptica Amikacin <=8: Susceptible Bordetella bronchiseptica Aztreonam >16: Resistant Bordetella bronchiseptica Cefepime 8: Susceptible Bordetella bronchiseptica Ceftazidime 8: Susceptible Bordetella bronchiseptica Ciprofloxacin 1: Susceptible Bordetella bronchiseptica Gentamicin <=2: Susceptible Bordetella bronchiseptica Imipenem 1: Susceptible Bordetella bronchiseptica Levofloxacin <=1: Susceptible Bordetella bronchiseptica Meropenem <=0.5: Susceptible Bordetella bronchiseptica Piperacillin + Tazobactam <=16: Susceptible Bordetella bronchiseptica Tobramycin <=2: Susceptible Bordetella bronchiseptica Trimethoprim + <=40: Susceptible Sulfamethoxazole Body fluid cell count with differential (05/21/2017 11:48 AM) Component Value Ref Range Appearance Turbid (A) Clear Color Colorless Colorless, Straw RBCs 2000 (H) <=1 /cu mm Adjusted WBC Count 1489 (H) <=5 /cu mm Lining Cells 119 (H) <=1 /cu mm % Segs 40 % % Lymphs 34 % % Monos 26 % % Eos 0 % % Baso 0 % Container Body Fluid EDTA Tube Specimen Performing Laboratory BAL [address] [address] Hepatic function panel (05/21/2017 3:39 AM) Component Value Ref Range Protein, Total 4.8 (L) 6.0 - 8.3 gm/dL Albumin 2.5 (L) 3.5 - 5.0 g/dL Total Bilirubin 0.7 0.2 - 1.2 mg/dL Bilirubin, Direct 0.3 0.1 - 0.5 mg/dL Alkaline Phosphatase 96 40 - 150 U/L AST 31 5 - 34 U/L ALT 11 6 - 55 U/L Specimen Performing Laboratory [place] [address] ANESTHESIA DAVIS (05/20/2017 4:29 PM) Tusahr Worley MD 05/20/20174:29 PM DAVIS Date: 05/20/2017 10:44 AM Sex: Female Location: OR Requesting Physician: MARIELA VERDUZCO Examiner: TUSHAR CARROLL IntubatedSedated Patient screened for esoph disease: Yes Insertion: easy Probe Type: multiplane Modalities: 2D, CFM, CWD and PWD Aorta Size Dissection Plaque Thick Plaque Mobile Ascending Ao normal No Ao Arch normal No Descending Ao normal No Valves Annulus Stenosis Area (cm3) Gradient Regurgitation Leaflet Morphology Leaflet Motion Not Visualized Aortic valve normal none trivial (1+) normal normal Mitral valve normal mild mild (2+) normal normal Tricuspid normal none mild (2+) normal normal Atria Size SEC Thrombus Tumor Device Right Atrium normal No No No No Left Atrium normal No No No device Interatrial Septum: Morphology: normal ASD: Shunt: Interventricular Septum: Morphology: normal Defect: Shunt: Pre Intervention Summary: 62 yo female pre- ACB LA: grossly normal MV: Mild to moderate regurgitation by CFD, Vena contrace 0.55, E/A 2.0 suggestive of impaired relazation LV: LVEF 45-50%, Grade 1 diastolic dysfunction, TDI ~ 8cm/s.EF 47% by 3D analysis.The inferior wall is hypokinetic. RA: compressed by significant posterior lateral pericardial effusion TV: TAPSE >16 mm, RV: Compressed by posterior lateral pericardial effusion AV: trace regurgitation Aorta: Normal size, scattered Grade III atheromatous disease no mobile plaques. Severe right pleural effusion, small left pleural effusion Significant pericardial effusion No PFO by CFD or bubble study Post Intervention Follow-up Study: Ventricular Global Fxn: improved Post Intervention Summary:S/p ACB x4. Post-CPB DAVIS exam done with inotropic support from epinephrine 2 mcg/min. LV: Unchanged LVEF 45-50%, inferoseptal wall displaying hypokinesis. Systolic function improved on ionotropic support. Aorta: No dissection seen. MV: Mild MR present. AV: Trivial AI. All other structures the same as pre-CPB exam. Findings discussed in real time with Dr. Verduzco. Procedure Note Tushar Carroll MD - 05/20/2017 10:44 AM CASH PROCESSING SPECIALIST Formatting of this note may be different from the original. DAVIS Date: 05/20/2017 10:44 AM Sex: Female Location: OR Requesting Physician: MARIELA VERDUZCO Examiner: TUSHAR CARROLL Intubated Sedated Patient screened for esoph disease: Yes Insertion: easy Probe Type: multiplane Modalities: 2D, CFM, CWD and PWD Aorta Size Dissection Plaque Thick Plaque Mobile Ascending Ao normal No Ao Arch normal No Descending Ao normal No Valves Annulus Stenosis Area (cm3) Gradient Regurgitation Leaflet Morphology Leaflet Motion Not Visualized Aortic valve normal none trivial (1+) normal normal Mitral valve normal mild mild (2+) normal normal Tricuspid normal none mild (2+) normal normal Atria Size SEC Thrombus Tumor Device Right Atrium normal No No No No Left Atrium normal No No No device Interatrial Septum: Morphology: normal ASD: Shunt: Interventricular Septum: Morphology: normal Defect: Shunt: Pre Intervention Summary: 62 yo female pre- ACB LA: grossly normal MV: Mild to moderate regurgitation by CFD, Vena contrace 0.55, E/A 2.0 suggestive of impaired relazation LV: LVEF 45-50%, Grade 1 diastolic dysfunction, TDI ~ 8cm/s. EF 47% by 3D analysis. The inferior wall is hypokinetic. RA: compressed by significant posterior lateral pericardial effusion TV: TAPSE >16 mm, RV: Compressed by posterior lateral pericardial effusion AV: trace regurgitation Aorta: Normal size, scattered Grade III atheromatous disease no mobile plaques. Severe right pleural effusion, small left pleural effusion Significant pericardial effusion No PFO by CFD or bubble study Post Intervention Follow-up Study: Ventricular Global Fxn: improved Post Intervention Summary: S/p ACB x4. Post-CPB DAVIS exam done with inotropic support from epinephrine 2 mcg/min. LV: Unchanged LVEF 45-50%, inferoseptal wall displaying hypokinesis. Systolic function improved on ionotropic support. Aorta: No dissection seen. MV: Mild MR present. AV: Trivial AI. All other structures the same as pre-CPB exam. Findings discussed in real time with Dr. Verduzco. Thromboelastograph (TEG) (05/20/2017 4:24 PM) Component Value Ref Range TEG Activated Clotting Time 6.7 4.0 - 7.0 minutes TEG Fibrinogen Activity 66.6 61.0 - 73.0 degrees TEG Platelet Aggregation 62.4 55.0 - 65.0 MM TEG Fibrinolysis 0.0 0.0 - 5.0 % TEG-H Activated Clotting Time 6.7 4.0 - 7.0 minutes TEG-H Fibrinogen Activity 69.0 61.0 - 73.0 degrees TEG-H Platelet Aggregation 62.8 55.0 - 65.0 MM TEG-H Fibrinolysis 0.0 0.0 - 5.0 % Specimen Performing Laboratory [address] [address] aPTT (05/20/2017 4:24 PM) Component Value Ref Range PTT 40.2 (H) 22.5 - 36.0 seconds Specimen Performing Laboratory [address] [address] Prothrombin time/INR (05/20/2017 4:24 PM)Only the most recent of4 resultswithin the time period is included. Component Value Ref Range Protime 19.6 (H) 11.7 - 14.7 seconds INR 1.7 <=5.9 Specimen Performing Laboratory [address] [address] Narrative RECOMMENDED COUMADIN/WARFARIN INR THERAPY RANGES STANDARD DOSE: 2.0 - 3.0 Includes: PROPHYLAXIS for venous thrombosis, systemic embolization; TREATMENT for venous thrombosis and/or pulmonary embolus. HIGH RISK: Target INR is 2.5-3.5 for patients with mechanical heart valves. Fibrinogen (05/20/2017 4:24 PM) Component Value Ref Range Fibrinogen 306 225 - 434 mg/dl Specimen Performing Laboratory [address] [address] Platelet count (05/20/2017 4:24 PM) Component Value Ref Range Platelets 136 (L) 150 - 450 K/CU MM Specimen Performing Laboratory Blood [address] [address] Blood gas, venous (05/20/2017 1:00 PM) Component Value Ref Range pH, Asim 7.39 7.32 - 7.42 pCO2, Asim 38 (L) 41 - 51 mmHg pO2, Asim 43 (H) 25 - 40 mmHg O2 Sat, Asim 90.0 (H) 40.0 - 70.0 % HCO3, Asim 24 21 - 29 mmol/L Base Excess, Asim -2.1 (L) -2.0 - 3.0 mmol/L Patient Temperature 31.5 C FIO2 80.0 % Specimen Performing Laboratory Blood [address] [address] Platelet Aggregation: Function Screen (05/19/2017 9:13 PM)Only the most recent of2 resultswithin the time period is included. Component Value Ref Range Weak ADP 63 60 - 91 % Plt. Function Screen Interpretation 60-100% indicates normal platelet function Pathologist: Toshia Post MD (electronic signature) Platelets 198 150 - 450 K/CU MM Specimen Performing Laboratory Blood - Arm, [address] [address] Narrative for patients on clopidogrel in past two weeks Hemoglobin A1c (05/19/2017 9:13 PM)Only the most recent of2 resultswithin the time period is included. Component Value Ref Range Hemoglobin A1C 10.6 (H) 4.3 - 6.1 % Specimen Performing Laboratory Blood - Arm, [address] [address] NM myocardial perfusion PET (rest and stress) (05/15/2017 11:01 AM) Specimen Performing Laboratory [facility] RIS Narrative FINAL REPORT PROCEDURE:Rest/Stress MYOCARDIAL PERFUSION PET with regadenoson\\XA9\\ CPT CODE:89290 INDICATION:Defined extent and severity of known CAD HISTORY:Cardiac risk factors: Diabetes, hypertension, hyperlipidemia, tobacco. Other cardiovascular history: Known CAD, CHF. Recent cardiac symptoms: Dyspnea. Current cardiovascular-related medications: Aspirin, atorvastatin, nifedipine. PROTOCOL:Limited low-dose CT imaging was performed for attenuation correction. 40.1 mCi of Rb-82 chloride was injected iv at rest, and gated PET (positron emission tomography) images were obtained. Subsequently, 40.1 mCi of Rb-82 chloride was injected iv at expected peak pharmacologic effect, and gated PET images were obtained. PRELIMINARY STRESS TEST DATA FROM NONINVASIVE CARDIOLOGY: Pharmacologic stress was by 10-second iv infusion of 0.4 mg of regadenoson. Radiotracer was injected 30 seconds after start of stress. Heart rate was 60 beats/min at rest and 62 beats/min (39% of MPHR) at tracer injection. BP was 145/87 mmHg at rest and 139/95 mmHg at tracer injection. Stress was stopped for predetermined endpoint. The patient experienced dyspnea; treatment was not required. Preliminary ECG evaluation revealed sinus rhythm at rest and no ischemic changes with stress. (Final ECG interpretation and other stress and monitoring data are reported separately by Cardiology). IMAGING FINDINGS:Study quality is good. Images obtained after stress injection show decreased radiotracer uptake in all apical segments and the mid inferior segment of the LV. Resting images show decreased radiotracer uptake in the apical inferior and apical segment of the LV. LV volume appears mildly increased. RV volume appears normal. Gated images obtained immediately after stress show severely decreased LV function. Gated images obtained at rest show severely decreased LV function. LVEF at rest is 23%. LVEF at stress is 36%. 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 IMPRESSION: 1. Abnormal study.2. Appropriate pharmacologic stress.3. Abnormal myocardial perfusion.There is a severe, small size, fixed, perfusion defect in the apical inferior and apical segments of the LV. There is also a severe , medium size, reversible perfusion defect in the mid inferior and all other periapical segments of the LV - consistent with significant tracey-infarct ischemia.4. Markedly decreased resting LV function. No deterioration of function is noted with pharmacologic stress.5. Extracardiac tracer distribution is normal.6. CT images revealed pleural and pericardial effusions. 7. No previous [facility] study for comparison. NONINVASIVE RISK STRATIFICATION: The above findings are considered high risk (>3% annual mortality rate) based on the following criteria: - Severe resting left ventricular dysfunction (LVEF 35%) - Stress-induced large perfusion defect (particularly if anterior) (JACC. 2012;59(9):857-52.) Signed: Last Lopez MD Report Verified Date/Time:05/15/2017 16:28:12 Reading Location: [facility] 3rd Flr [id number] [facility] Reading Room Procedure Note Interface, External Ris In - 05/15/2017 4:30 PM CASH PROCESSING SPECIALIST FINAL REPORT PROCEDURE: Rest/Stress MYOCARDIAL PERFUSION PET with regadenoson\\XA9\\ CPT CODE: 87179 INDICATION: Defined extent and severity of known CAD HISTORY: Cardiac risk factors: Diabetes, hypertension, hyperlipidemia, tobacco. Other cardiovascular history: Known CAD, CHF. Recent cardiac symptoms: Dyspnea. Current cardiovascular-related medications: Aspirin, atorvastatin, nifedipine. PROTOCOL: Limited low-dose CT imaging was performed for attenuation correction. 40.1 mCi of Rb-82 chloride was injected iv at rest, and gated PET (positron emission tomography) images were obtained. Subsequently, 40.1 mCi of Rb-82 chloride was injected iv at expected peak pharmacologic effect, and gated PET images were obtained. PRELIMINARY STRESS TEST DATA FROM NONINVASIVE CARDIOLOGY: Pharmacologic stress was by 10-second iv infusion of 0.4 mg of regadenoson. Radiotracer was injected 30 seconds after start of stress. Heart rate was 60 beats/min at rest and 62 beats/min (39% of MPHR) at tracer injection. BP was 145/87 mmHg at rest and 139/95 mmHg at tracer injection. Stress was stopped for predetermined endpoint. The patient experienced dyspnea; treatment was not required. Preliminary ECG evaluation revealed sinus rhythm at rest and no ischemic changes with stress. (Final ECG interpretation and other stress and monitoring data are reported separately by Cardiology). IMAGING FINDINGS: Study quality is good. Images obtained after stress injection show decreased radiotracer uptake in all apical segments and the mid inferior segment of the LV. Resting images show decreased radiotracer uptake in the apical inferior and apical segment of the LV. LV volume appears mildly increased. RV volume appears normal. Gated images obtained immediately after stress show severely decreased LV function. Gated images obtained at rest show severely decreased LV function. LVEF at rest is 23%. LVEF at stress is 36%. 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 IMPRESSION: 1. Abnormal study. 2. Appropriate pharmacologic stress. 3. Abnormal myocardial perfusion. There is a severe, small size, fixed, perfusion defect in the apical inferior and apical segments of the LV. There is also a severe , medium size, reversible perfusion defect in the mid inferior and all other periapical segments of the LV - consistent with significant tracey-infarct ischemia. 4. Markedly decreased resting LV function. No deterioration of function is noted with pharmacologic stress. 5. Extracardiac tracer distribution is normal. 6. CT images revealed pleural and pericardial effusions. 7. No previous [facility] study for comparison. NONINVASIVE RISK STRATIFICATION: The above findings are considered high risk (>3% annual mortality rate) based on the following criteria: - Severe resting left ventricular dysfunction (LVEF 35%) - Stress-induced large perfusion defect (particularly if anterior) (JACC. 2012;59(9):857-81.) Signed: Last Lopez MD Report Verified Date/Time: 05/15/2017 16:28:12 Reading Location: [address] Reading Room Renal with Doppler (05/15/2017 7:13 AM) Specimen Performing Laboratory [facility] Narrative FINAL REPORT Realtime Renal ultrasound with Renal Doppler Comparison: No comparison Clinical History:Acute kidney injury and hypertension Technique: Real time sonographic evaluation of the kidneys was performed.81 images were submitted for interpretation, using a five MHz transducer.Color and spectral Doppler images were submitted for interpretation. Right kidney: The kidney measures 12.6 cm in length.The cortical echogenicity is within normal limits.The cortex measures 1.3 cm.There is no evidence of a focal mass, or hydronephrosis.There is no evidence of a shadowing stone.There is no evidence of a cyst.There is no evidence of a perinephric fluid collection.Flow was visualized to the right kidney.The acceleration times are within normal limits. There was noevidence of a delayed systolic peak.The peak systolic velocity of the main renal artery was unremarkable as compared to the aorta. The resistive indices measure 0.77, 0.78 and 0.69 in the upper mid and lower poles respectively Left kidney: The kidney measures 12.3 cm in length.The cortical echogenicity is within normal limits.The cortex measures 1.1 cm.There is no evidence of a focal mass. There is no evidence of hydronephrosis. There is no evidence of a shadowing stone.There is no evidence of a cyst.There is no evidence of a perinephric fluid collection. Flow was visualized to the left kidney. The acceleration times are within normal limits.There was no evidenceof a delayed systolic peak.The peak systolic velocity of the main renal artery was unremarkable as compared to the aorta. The resistive indices measure 0.72, 0.74 and 0.70 in the upper mid and lower poles respectively Survey images of the bladder demonstrate no abnormality. Impression: The kidneys are normal in size without evidence of hydronephrosis. Doppler interrogation demonstrates a nonspecific increase in the resistive indices throughout. Signed: Anahi Hobbs MD Report Verified Date/Time:05/15/2017 11:04:01 Reading Location: [place] [id number] Ultrasound Reading Room Procedure Note Interface, External Ris In - 05/15/2017 11:06 AM CASH PROCESSING SPECIALIST FINAL REPORT Realtime Renal ultrasound with Renal Doppler Comparison: No comparison Clinical History: Acute kidney injury and hypertension Technique: Real time sonographic evaluation of the kidneys was performed. 81 images were submitted for interpretation, using a five MHz transducer. Color and spectral Doppler images were submitted for interpretation. Right kidney: The kidney measures 12.6 cm in length. The cortical echogenicity is within normal limits. The cortex measures 1.3 cm. There is no evidence of a focal mass, or hydronephrosis. There is no evidence of a shadowing stone. There is no evidence of a cyst. There is no evidence of a perinephric fluid collection. Flow was visualized to the right kidney. The acceleration times are within normal limits. There was no evidence of a delayed systolic peak. The peak systolic velocity of the main renal artery was unremarkable as compared to the aorta. The resistive indices measure 0.77, 0.78 and 0.69 in the upper mid and lower poles respectively Left kidney: The kidney measures 12.3 cm in length. The cortical echogenicity is within normal limits. The cortex measures 1.1 cm. There is no evidence of a focal mass. There is no evidence of hydronephrosis. There is no evidence of a shadowing stone. There is no evidence of a cyst. There is no evidence of a perinephric fluid collection. Flow was visualized to the left kidney. The acceleration times are within normal limits. There was no evidence of a delayed systolic peak. The peak systolic velocity of the main renal artery was unremarkable as compared to the aorta. The resistive indices measure 0.72, 0.74 and 0.70 in the upper mid and lower poles respectively Survey images of the bladder demonstrate no abnormality. Impression: The kidneys are normal in size without evidence of hydronephrosis. Doppler interrogation demonstrates a nonspecific increase in the resistive indices throughout. Signed: Anahi Hobbs MD Report Verified Date/Time: 05/15/2017 11:04:01 Reading Location: [facility] [id number] Ultrasound Reading Room Hepatitis panel, acute (05/15/2017 3:35 AM) Component Value Ref Range Hep A IgM Nonreactive Nonreactive Hep B C IgM Nonreactive Nonreactive Hepatitis C Ab Nonreactive Nonreactive hepatitis B Surface Ag Nonreactive Nonreactive Specimen Performing Laboratory Blood - Arm, [address] [address] Complement Component C3 (05/15/2017 3:35 AM) Component Value Ref Range C3 Complement 103 82 - 193 mg/dL Specimen Performing Laboratory Blood - Arm, [address] [address] Complement Component C4 (05/15/2017 3:35 AM) Component Value Ref Range C4 Complement 28 15 - 57 mg/dL Specimen Performing Laboratory Blood - Arm, [address] [address] Uric acid (05/15/2017 3:35 AM) Component Value Ref Range Uric Acid 10.3 (H) 2.6 - 7.2 mg/dL Specimen Performing Laboratory Blood - Arm, [address] [address] Urine Protein Electrophoresis, random (05/14/2017 5:15 PM) Component Value Ref Range Protein, Urine 305 (H) 0 - 14 mg/dL Albumin %, Urine 70.9 % Globulin %, Urine 29.1 % UPEP,ID No monoclonal bands detected. Pathologist: Rocio Galindo MD (electronic signature) Specimen Performing Laboratory Urine [address] [address] Urine culture (05/14/2017 5:15 PM) Component Value Ref Range Result >100,000 col/mL skin todd Specimen Performing Laboratory Urine - Urine, Clean Catch [address] [address] HIV-1 Antigen with HIV-1/2 Antibody (05/14/2017 10:46 AM) Component Value Ref Range HIV-1 Antigen with HIV 1&2 Antibody Nonreactive Nonreactive Specimen Performing Laboratory Blood [address] [address] ROGER Titer & Pattern (05/14/2017 10:46 AM) Component Value Ref Range ROGER Titer 1:160 ROGER Pattern Speckled Specimen Performing Laboratory [address] [address] Rheumatoid factor Ab, reflex to titer (05/14/2017 10:46 AM) Component Value Ref Range Rheumatoid Factor Negative Specimen Performing Laboratory Blood [address] [address] Anti-Nuclear Antibody (ROGER) (05/14/2017 10:46 AM) Component Value Ref Range ROGER Positive (A) Negative Specimen Performing Laboratory [address] [address] Protein electrophoresis, serum (05/14/2017 10:46 AM) Component Value Ref Range Albumin Fraction 2.5 (L) 3.5 - 5.5 g/dL Alpha 1 Fraction 0.3 0.2 - 0.4 g/dL Alpha 2 Fraction 0.9 0.5 - 0.9 g/dL Beta Fraction 0.8 0.6 - 1.1 g/dL Gamma Globulin Fraction 1.0 0.7 - 1.7 g/dL Interpretation Decreased albumin with concurrent relative increases in all globulin fractions. No monoclonal bands detected. Pathologist: Rocio Galindo MD (electronic signature) Protein, Total 5.5 (L) 6.0 - 8.3 gm/dL Specimen Performing Laboratory [address] [address] Protein, random urine (05/13/2017 9:25 PM) Component Value Ref Range Protein, Urine 641 (H) 0 - 14 mg/dL Specimen Performing Laboratory Urine - Urine, Voided [facility] [address] Creatinine, random urine (05/13/2017 9:25 PM) Component Value Ref Range Creatinine, Ur 124.9 mg/dL Specimen Performing Laboratory Urine - Urine, Voided [address] [address] Narrative Reference Range: No Normals Urinalysis w/Microscopic (05/13/2017 9:25 PM) Component Value Ref Range Color, UA Yellow Clarity, UA Cloudy Specific [place], UA 1.015 1.001 - 1.035 pH, UA 5.5 5.0 - 8.0 Protein, UA 300 mg/dL (A) Negative Glucose, UA 300 mg/dL (A) Negative Ketones, UA Negative Negative Bilirubin, UA Negative Negative Blood, UA Trace (A) Negative Nitrite, UA Negative Negative Leukocytes, UA Moderate (A) Negative Urobilinogen, UA 0.2 0.2 - 1.0 mg/dL RBC, UA 11 /HPF WBC, UA 36 /HPF Mucus Few Squam Epithel, UA 12 /HPF Hyaline Casts, UA 66 /LPF Casts 112 /LPF Yeast Moderate Specimen Source Urine, Voided Specimen Performing Laboratory Urine - Urine, Voided [address] [address] Electrolytes (05/13/2017 7:21 PM)Only the most recent of2 resultswithin the time period is included. Component Value Ref Range Sodium 136 136 - 145 meq/L Potassium 5.1Comment: Specimen slightly hemolyzed 3.5 - 5.1 meq/L Chloride 104 98 - 107 meq/L CO2 25 22 - 29 meq/L Specimen Performing Laboratory Blood - Arm, Left [address] [address] Narrative Call if K > 5 Arterial doppler legs bilateral (05/13/2017 6:10 PM) Component Value Ref Range Ejection Fraction Specimen Performing Laboratory SLE ECHO [facility]ART[facility] MKCKESSON CPACS Impressions Right Impression 1. There is >50% stenosis in the common femoral artery with a peak velocity of 320 cm/sec and biphasic Doppler waveform signals. 2. The profunda femoral artery is patent with diffuse plaque and biphasic Doppler waveform signals. 3. There is OCCLUSION in the proximal superficial femoral artery with reconstitution of flow in the mid to distal area. 4. The popliteal, posterior tibial, peroneal and anterior tibial arteries are patent with diffuse plaque, decreased flow velocities ranging from 37 cm/sec - 16 cm/sec and monophasic Doppler waveform signals. 5. The PT pressure is 68 mmHg with an MITCHELL of 0.62 and the DP pressure is 68 mmHg with an MITCHELL of 0.62, within moderate obstruction range. 6. The great toe pressure is 41 mmHg with an abnormal TBI of 0.37. 7. The digits have diminished flow by PPG waveforms. Left Impression 1. The common femoral, profunda femoral, superficial femoral, popliteal, posterior tibial, peroneal and anterior tibial arteries are patent with diffuse plaque and biphasic/monophasic Doppler waveform signals. 2. The PT pressure is 86 mmHg with an MITCHELL of 0.78 and the DP pressure is 90 mmHg with an MITCHELL of 0.82, within mild obstruction range. 3. The great toe pressure and TBI are not obtained due to amputation. 4. The 2nd. 3rd, 4th and 5th digits have adequate flow by PPG waveforms. Conclusions Summary Arterial pressures and Doppler waveforms were performed bilaterally. Adequate Doppler waveforms were obtained. On the right arterial system, there was >50% hemodynamically significant stenosis in the common femoral artery, OCCLUSION in the proximal superficial femoral artery with reconstitution of flow distally, decreased monophasic flow in the distal arteries and biphasic/monophasic Doppler waveforms. The right MITCHELL's were within moderate obstruction range. The right toe pressure and TBI's were within abnormal range and digital flow were diminished by PPG waveforms. The left arterial system was patent with diffuse plaque and biphasic/monophasic Doppler waveform signals. The left MITCHELL's were within mild obstruction range. The left toe pressure and TBI's were not obtained due to amputation. The remaining digits had adequate flow by PPG waveforms. Signature Velocities are measured in cm/s ; Diameters are measured in cm LE Duplex Measurements Right Left + + + + + + + + + + !Location ! !PSV !EDV!Waveform ! !PSV !EDV !Waveform! + + + + + + + + + + !Mid Common Femoral ! !320 ! !Biphasic ! !124 !14.9!Biphasic! + + + + + + + + + + !Prox PFA ! !95! !Biphasic ! !121 !10.3!Biphasic! + + + + + + + + + + !Prox SFA ! !0 ! !Absent ! !187 !13.7!Biphasic! + + + + + + + + + + !Mid SFA ! !16.9! !Monophasic ! !36.4!! Monophasic ! + + + + + + + + + + !Dist SFA ! !37.3! !Monophasic ! !128 !!Biphasic! + + + + + + + + + + !Prox Popliteal ! !27.9! !Monophasic ! !55.1!9.97!Biphasic ! + + + + + + + + + + !Dist Popliteal ! !33.3! !Monophasic ! !54.5!12.3!Biphasic ! + + + + + + + + + + !Prox FLORICULTURE TEACHER ! !36.6! !Monophasic ! !64!10.2!Biphasic ! + + + + + + + + + + !Mid FLORICULTURE TEACHER ! !29.8! !Monophasic ! !35.2!7.38!Biphasic ! + + + + + + + + + + !Dist FLORICULTURE TEACHER ! !26.7! !Monophasic ! !30.2!! Monophasic ! + + + + + + + + + + !Prox DANNY ! !20.7! !Monophasic ! !42!! Monophasic ! + + + + + + + + + + !Mid DANNY ! !16! !Monophasic ! !39.7!! Monophasic ! + + + + + + + + + + !Dist DANNY ! !16! !Monophasic ! !35.4!! Monophasic ! + + + + + + + + + + !Prox Peroneal ! !18.6! !Monophasic ! !24.4!! Monophasic ! + + + + + + + + + + !Mid Peroneal ! !20.5! !Monophasic ! !28.7!! Monophasic ! + + + + + + + + + + !Dist Peroneal ! !21.2! !Monophasic ! !23.2!! Monophasic ! + + + + + + + + + + Narrative [facility] - Lower Extremity Arterial Duplex Demographics Patient Name CHRISTY GREER Date of Study 05/13/2017 BETO [id number] Age 62 Visit Number [id number] Gender Female Accession Number [id number] [facility] 1955 [facility] Number [id number] Physician SonographJulian Richard. Jeremy Perez MD, BHASKARSPhysicibrandon BARKERVI Procedure Type of Study: Extremities Arteries: Lower Extremities Arterial Duplex, ARTERIAL DOPPLER LEGS, BILATERAL. Indications for Study:PAD and Foot Ulcer. Patient Status:Routine. Study Location:Vascular Lab. Technical Quality:Adequate visualization. Risk Factors History of Disease + + + + !Diagnosis !Date!Comments ! + + + + !History/Risk!05/13/2017!S/P Heart stent placement 05/12/17, Cardiomegaly,! 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 Indications for Study:PAD and Foot Ulcer. Patient Status:Routine. Study Location:Vascular Lab. Technical Quality:Adequate visualization. Risk Factors History of Disease + + + + !Diagnosis !Date !Comments ! + + + + !History/Risk !05/13/2017!S/P Heart stent placement 05/12/17, Cardiomegaly,! !Factors: ! !CHF, COPD, CAD, DM, HLD, HTN, Smoker, Left great! ! ! 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 + + + + Impressions Right Impression 1. There is >50% stenosis in the common femoral artery with a peak velocity of 320 cm/sec and biphasic Doppler waveform signals. 2. The profunda femoral artery is patent with diffuse plaque and biphasic Doppler waveform signals. 3. There is OCCLUSION in the proximal superficial femoral artery with reconstitution of flow in the mid to distal area. 4. The popliteal, posterior tibial, peroneal and anterior tibial arteries are patent with diffuse plaque, decreased flow velocities ranging from 37 cm/sec - 16 cm/sec and monophasic Doppler waveform signals. 5. The PT pressure is 68 mmHg with an MITCHELL of 0.62 and the DP pressure is 68 mmHg with an MITCHELL of 0.62, within moderate obstruction range. 6. The great toe pressure is 41 mmHg with an abnormal TBI of 0.37. 7. The digits have diminished flow by PPG waveforms. Left Impression 1. The common femoral, profunda femoral, superficial femoral, popliteal, posterior tibial, peroneal and anterior tibial arteries are patent with diffuse plaque and biphasic/monophasic Doppler waveform signals. 2. The PT pressure is 86 mmHg with an MITCHELL of 0.78 and the DP pressure is 90 mmHg with an MITCHELL of 0.82, within mild obstruction range. 3. The great toe pressure and TBI are not obtained due to amputation. 4. The 2nd. 3rd, 4th and 5th digits have adequate flow by PPG waveforms. Conclusions Summary Arterial pressures and Doppler waveforms were performed bilaterally. Adequate Doppler waveforms were obtained. On the right arterial system, there was >50% hemodynamically significant stenosis in the common femoral artery, OCCLUSION in the proximal superficial femoral artery with reconstitution of flow distally, decreased monophasic flow in the distal arteries and biphasic/monophasic Doppler waveforms. The right MITCHELL's were within moderate obstruction range. The right toe pressure and TBI's were within abnormal range and digital flow were diminished by PPG waveforms. The left arterial system was patent with diffuse plaque and biphasic/monophasic Doppler waveform signals. The left MITCHELL's were within mild obstruction range. The left toe pressure and TBI's were not obtained due to amputation. The remaining digits had adequate flow by PPG waveforms. Signature Velocities are measured in cm/s ; Diameters are measured in cm LE Duplex Measurements Right Left + + + ------+ + + + +-------- + + !Location ! !PSV !EDV !Waveform ! !PSV !EDV !Waveform ! + + + ------+ + + + +-------- + + !Mid Common Femoral ! !320 ! !Biphasic ! !124 !14.9 !Biphasic ! + + + ------+ + + + +-------- + + !Prox PFA ! !95 ! !Biphasic ! !121 !10.3 !Biphasic ! + + + ------+ + + + +-------- + + !Prox SFA ! !0 ! !Absent ! !187 !13.7 !Biphasic ! + + + ------+ + + + +-------- + + !Mid SFA ! !16.9 ! !Monophasic ! !36.4 ! !Monophasic ! + + + ------+ + + + +-------- + + !Dist SFA ! !37.3 ! !Monophasic ! !128 ! !Biphasic ! + + + ------+ + + + +-------- + + !Prox Popliteal ! !27.9 ! !Monophasic ! !55.1 !9.97 !Biphasic ! + + + ------+ + + + +-------- + + !Dist Popliteal ! !33.3 ! !Monophasic ! !54.5 !12.3 !Biphasic ! + + + ------+ + + + +-------- + + !Prox FLORICULTURE TEACHER ! !36.6 ! !Monophasic ! !64 !10.2 !Biphasic ! + + + ------+ + + + +-------- + + !Mid FLORICULTURE TEACHER ! !29.8 ! !Monophasic ! !35.2 !7.38 !Biphasic ! + + + ------+ + + + +-------- + + !Dist FLORICULTURE TEACHER ! !26.7 ! !Monophasic ! !30.2 ! !Monophasic ! + + + ------+ + + + +-------- + + !Prox DANNY ! !20.7 ! !Monophasic ! !42 ! !Monophasic ! + + + ------+ + + + +-------- + + !Mid DANNY ! !16 ! !Monophasic ! !39.7 ! !Monophasic ! + + + ------+ + + + +-------- + + !Dist DANNY ! !16 ! !Monophasic ! !35.4 ! !Monophasic ! + + + ------+ + + + +-------- + + !Prox Peroneal ! !18.6 ! !Monophasic ! !24.4 ! !Monophasic ! + + + ------+ + + + +-------- + + !Mid Peroneal ! !20.5 ! !Monophasic ! !28.7 ! !Monophasic ! + + + ------+ + + + +-------- + + !Dist Peroneal ! !21.2 ! !Monophasic ! !23.2 ! !Monophasic ! + + + ------+ + + + +-------- + + BUN (05/13/2017 3:57 AM) Component Value Ref Range BUN 36 (H) 7 - 21 mg/dL Specimen Performing Laboratory Blood - Arm, [address] [address] Creatinine (05/13/2017 3:57 AM) Component Value Ref Range Creatinine 1.73 (H) 0.57 - 1.25 mg/dL EGFR 30Comment: ESTIMATED GFR IS NOT ACCURATE mL/min/1.73 sq m CREATININE CLEARANCE IN PREDICTING GLOMERULAR FILTRATION RATE. ESTIMATED GFR IS NOT APPLICABLE FOR DIALYSIS PATIENTS. Specimen Performing Laboratory Blood - Arm, [address] [address] Troponin I (04/22/2017 6:03 AM)Only the most recent of2 resultswithin the time period is included. Component Value Ref Range Troponin I 0.05 (H) 0.00 - 0.03 ng/mL Specimen Performing Laboratory Blood - Arm, [address] [address] Narrative Troponin I (TnI) levels must be interpreted in the context of the presenting symptoms and the clinical findings. Elevated TnI levels indicate myocardial damage, but are not specific for ischemic heart disease. Elevated TnI levels are seen in patients with other cardiac conditions (including myocarditis and congestive heart failure), and slight TnI elevations occur in patients with other conditions, including sepsis, renal failure, acidosis, acute neurological disease, and persistent tachyarrhythmia. Creatine Kinase (CK), Total and MB (04/22/2017 12:02 AM) Component Value Ref Range Total CK 69 29 - 200 U/L CK-MB 4.3 0.0 - 6.6 ng/mL MB Relative Index 6.2 % Specimen Performing Laboratory Blood - Arm, Left [address] [address] Narrative CK-MB Reference Range: <6.7Normal 6.7-10.0Borderline >10.0 Abnormal after 07/27/2016
--- OUTSIDE RECORDS SUMMARY | 2017-07-28 19:51 | XMS REPORT ---
:1955 [facility] [address] [place] [address] Care Team Providers Name Role Phone LALITA BHAGAT Unavailable Unavailable MAGGIE MCCONNELL Unavailable Unavailable Mary FIERRO Unavailable Unavailable Problems This patient has no known problems. Allergies, Adverse Reactions, Alerts This patient has no known allergies or adverse reactions. Medications This patient has no known medications. Results Test Description Test Time Test Comments Text Results Atomic Results Result Comments B-TYPE NATRIURETIC FACTOR (BNP) 2017-06-10 12:44:00 Test Item Value Reference Range Comments B-TYPE NATRIURETIC PEPTIDE (BEAKER) (test djrc=998) 1264 pg/mL 0-100 [id number] 12:36:00 Test Item Value Reference Range Comments MAGNESIUM (BEAKER) (test zszq=540) 1.6 mg/dL 1.6-2.6 BASIC METABOLIC [id number] 12:36:00 Test Item Value Reference Range Comments SODIUM (BEAKER) (test 137 meq/L 136-145 mdvj=058) POTASSIUM (BEAKER) (test 5.4 meq/L 3.5-5.1 fqwd=758) CHLORIDE (BEAKER) (test 108 meq/L 98-107 bwbv=364) CO2 (BEAKER) (test 21 meq/L 22-29 pozr=605) BLOOD UREA NITROGEN 39 mg/dL 7-21 (BEAKER) (test wxhp=778) CREATININE (BEAKER) (test 1.49 mg/dL 0.57-1.25 lwie=853) GLUCOSE RANDOM (BEAKER) 219 mg/dL 70-105 (test jgcx=709) CALCIUM (BEAKER) (test 8.5 mg/dL 8.4-10.2 fply=300) EGFR (BEAKER) (test 35 mL/min/1.73 sq m ESTIMATED GFR IS NOT thnl=4563) ACCURATE CREATININE CLEARANCE IN PREDICTING GLOMERULAR FILTRATION RATE. ESTIMATED GFR IS NOT APPLICABLE FOR DIALYSIS PATIENTS. POCT-GLUCOSE [id number] 12:04:00 Test Item Value Reference Range Comments POC-GLUCOSE METER (BEAKER) 274 mg/dL 70-110 TESTED AT [facility] [address] [facility] (test zohp=2801) [place] [address] POCT-GLUCOSE [id number] 07:21:00 Test Item Value Reference Range Comments POC-GLUCOSE METER (BEAKER) 137 mg/dL 70-110 TESTED AT [facility] [address] [facility] (test bstk=2869) [place] [address] BASIC METABOLIC [id number] 05:10:00 Test Item Value Reference Range Comments SODIUM (BEAKER) (test 137 meq/L 136-145 onsp=024) POTASSIUM (BEAKER) (test 4.1 meq/L 3.5-5.1 wupt=505) CHLORIDE (BEAKER) (test 106 meq/L 98-107 hrgy=001) CO2 (BEAKER) (test 24 meq/L 22-29 tgyo=603) BLOOD UREA NITROGEN 42 mg/dL 7-21 (BEAKER) (test fjvy=264) CREATININE (BEAKER) (test 1.64 mg/dL 0.57-1.25 kupz=800) GLUCOSE RANDOM (BEAKER) 162 mg/dL 70-105 (test qtlq=428) CALCIUM (BEAKER) (test 8.1 mg/dL 8.4-10.2 ibun=801) EGFR (BEAKER) (test 32 mL/min/1.73 sq m ESTIMATED GFR IS NOT vzfn=3526) ACCURATE CREATININE CLEARANCE IN PREDICTING GLOMERULAR FILTRATION RATE. ESTIMATED GFR IS NOT APPLICABLE FOR DIALYSIS PATIENTS. CBC (HEMOGRAM ONLY)2017-06-01 04:30:00 Test Item Value Reference Range Comments WHITE BLOOD CELL COUNT (BEAKER) (test hsvp=219) 6.4 K/ L 3.5-10.5 RED BLOOD CELL COUNT (BEAKER) (test xtbf=710) 3.38 M/ L 3.93-5.22 HEMOGLOBIN (BEAKER) (test lfdm=190) 8.7 GM/DL 11.2-15.7 HEMATOCRIT (BEAKER) (test glij=254) 28.2 % 34.1-44.9 MEAN CORPUSCULAR VOLUME (BEAKER) (test mzll=016) 83.4 fL 79.4-94.8 MEAN CORPUSCULAR HEMOGLOBIN (BEAKER) (test 25.7 pg 25.6-32.2 irkv=799) MEAN CORPUSCULAR HEMOGLOBIN CONC (BEAKER) (test 30.9 GM/DL 32.2-35.5 ftmk=084) RED CELL DISTRIBUTION WIDTH (BEAKER) (test 15.2 % 11.7-14.4 hxlh=929) PLATELET COUNT (BEAKER) (test tait=450) 320 K/CU MM 150-450 MEAN PLATELET VOLUME (BEAKER) (test hjuv=377) 9.5 fL 9.4-12.3 NUCLEATED RED BLOOD CELLS (BEAKER) (test 0 /100 WBC 0-0 vueu=245) POCT-GLUCOSE [id number] 21:23:00 Test Item Value Reference Range Comments POC-GLUCOSE METER (BEAKER) 240 mg/dL 70-110 TESTED AT [address] (test bjtm=8237) [place] [id number] POCT-GLUCOSE [id number] 16:42:00 Test Item Value Reference Range Comments POC-GLUCOSE METER (BEAKER) 234 mg/dL 70-110 TESTED AT [address] (test zpxd=8204) [place] [id number] POCT-GLUCOSE [id number] 13:22:00 Test Item Value Reference Range Comments POC-GLUCOSE METER (BEAKER) 166 mg/dL 70-110 TESTED AT [address] (test ylfv=3305) [place] [address] RAD, CHEST, 1 VIEW, NON [id number] 09:43:00Reason for exam:->s/p ACBShould this be performed at the bedside?->YesFINAL REPORT CHEST ONE VIEW HISTORY: Status post ACB COMPARISON: 05/30/2017 FINDINGS: Single portable AP examination of the chest was performed. Small pleural effusions and mild bibasilar atelectasis have improved since yesterday's study. Interstitial opacities in the lungs, unchanged, suggestive of mild residual edema. Cardiac shadow partially obscured. Sternotomy wires are present. No pneumothorax. Signed: Lynda Ring Verified Date/Time: 05/31/2017 09: 43:30 ReadingLocation: [facility] B1 [id number] Ortho Consult Reading Room POCT-GLUCOSE [id number] 06:57:00 Test Item Value Reference Range Comments POC-GLUCOSE METER (BEAKER) 136 mg/dL 70-110 TESTED AT [facility] [address] [facility] (test zcwi=0016) [place] [address] CALCIUM, [id number] 06:41:00 Test Item Value Reference Range Comments CALCIUM IONIZED (BEAKER) (test ssca=405) 1.10 mmol/L 1.12-1.27 PH, BLOOD (BEAKER) (test zjrt=0571) 7.42 [id number] 06:17:00 Test Item Value Reference Range Comments PHOSPHORUS (BEAKER) (test ccdr=241) 3.3 mg/dL 2.3-4.7 [id number] 06:17:00 Test Item Value Reference Range Comments MAGNESIUM (BEAKER) (test gaay=522) 1.8 mg/dL 1.6-2.6 BASIC METABOLIC [id number] 06:17:00 Test Item Value Reference Range Comments SODIUM (BEAKER) (test 131 meq/L 136-145 twoa=464) POTASSIUM (BEAKER) (test 4.5 meq/L 3.5-5.1 xyng=380) CHLORIDE (BEAKER) (test 103 meq/L 98-107 hdyr=396) CO2 (BEAKER) (test 21 meq/L 22-29 dygu=962) BLOOD UREA NITROGEN 43 mg/dL 7-21 (BEAKER) (test cpwb=675) CREATININE (BEAKER) (test 1.74 mg/dL 0.57-1.25 jrfv=170) GLUCOSE RANDOM (BEAKER) 126 mg/dL 70-105 (test zaro=733) CALCIUM (BEAKER) (test 8.1 mg/dL 8.4-10.2 kdbo=635) EGFR (BEAKER) (test 30 mL/min/1.73 sq m ESTIMATED GFR IS NOT njfo=1799) ACCURATE CREATININE CLEARANCE IN PREDICTING GLOMERULAR FILTRATION RATE. ESTIMATED GFR IS NOT APPLICABLE FOR DIALYSIS PATIENTS. CBC W/PLT COUNT & AUTO [id number] 05:07:00 Test Item Value Reference Range Comments WHITE BLOOD CELL COUNT (BEAKER) (test omee=508) 5.9 K/ L 3.5-10.5 RED BLOOD CELL COUNT (BEAKER) (test waix=067) 3.16 M/ L 3.93-5.22 HEMOGLOBIN (BEAKER) (test owje=798) 8.2 GM/DL 11.2-15.7 HEMATOCRIT (BEAKER) (test uhih=117) 26.6 % 34.1-44.9 MEAN CORPUSCULAR VOLUME (BEAKER) (test mpnr=119) 84.2 fL 79.4-94.8 MEAN CORPUSCULAR HEMOGLOBIN (BEAKER) (test 25.9 pg 25.6-32.2 ymxd=990) MEAN CORPUSCULAR HEMOGLOBIN CONC (BEAKER) (test 30.8 GM/DL 32.2-35.5 fwjr=514) RED CELL DISTRIBUTION WIDTH (BEAKER) (test 15.1 % 11.7-14.4 poco=625) PLATELET COUNT (BEAKER) (test qbwn=702) 320 K/CU MM 150-450 MEAN PLATELET VOLUME (BEAKER) (test uoxx=109) 9.6 fL 9.4-12.3 NUCLEATED RED BLOOD CELLS (BEAKER) (test 0 /100 WBC 0-0 rsnj=578) NEUTROPHILS RELATIVE PERCENT (BEAKER) (test 65 % uvwg=000) LYMPHOCYTES RELATIVE PERCENT (BEAKER) (test 24 % jgav=822) MONOCYTES RELATIVE PERCENT (BEAKER) (test 8 % qbmm=288) EOSINOPHILS RELATIVE PERCENT (BEAKER) (test 2 % pmoq=464) BASOPHILS RELATIVE PERCENT (BEAKER) (test 1 % watf=419) NEUTROPHILS ABSOLUTE COUNT (BEAKER) (test 3.84 K/ L 1.56-6.13 gfmn=516) LYMPHOCYTES ABSOLUTE COUNT (BEAKER) (test 1.41 K/ L 1.18-3.74 ksxm=639) MONOCYTES ABSOLUTE COUNT (BEAKER) (test 0.47 K/ L 0.24-0.36 oyjq=907) EOSINOPHILS ABSOLUTE COUNT (BEAKER) (test 0.11 K/ L 0.04-0.36 dmfc=795) BASOPHILS ABSOLUTE COUNT (BEAKER) (test 0.05 K/ L 0.01-0.08 pwrs=079) IMMATURE GRANULOCYTES-RELATIVE PERCENT (BEAKER) 1 % 0-1 (test pueg=4792) POCT-GLUCOSE [id number] 20:56:00 Test Item Value Reference Range Comments POC-GLUCOSE METER (BEAKER) 196 mg/dL 70-110 TESTED AT [place] [id number] [facility] (test jdgp=9082) [place] [address] POCT-GLUCOSE [id number] 16:42:00 Test Item Value Reference Range Comments POC-GLUCOSE METER (BEAKER) 196 mg/dL 70-110 TESTED AT [address] (test dqcx=1056) [place] [address] POCT-GLUCOSE [id number] 11:45:00 Test Item Value Reference Range Comments POC-GLUCOSE METER (BEAKER) 215 mg/dL 70-110 TESTED AT [address] (test vstm=0910) [place] [address] RAD, CHEST, 1 VIEW, NON [id number] 11:15:00Reason for exam:->s/p ACBShould this be performed at the bedside?->YesFINAL REPORT Chest one view compared to May 28, 2017 Discussion: Airspace opacities are seen in both lower lung regions, probably atelectasis. Correlate clinically for infection. I could not exclude small effusions. No pneumothorax. Upper lungs clear. Signed: Jeannette Nava Verified Date/Time: 2017 11:15:07 Reading Location: [facility] Radiology Reading Room CALCIUM, [id number] 09:21:00 Test Item Value Reference Range Comments CALCIUM IONIZED (BEAKER) (test dmic=162) 1.11 mmol/L 1.12-1.27 PH, BLOOD (BEAKER) (test lbro=6263) 7.36 BASIC METABOLIC [id number] 07:37:00 Test Item Value Reference Range Comments SODIUM (BEAKER) (test 135 meq/L 136-145 npkr=222) POTASSIUM (BEAKER) (test 4.9 meq/L 3.5-5.1 bhjs=711) CHLORIDE (BEAKER) (test 105 meq/L 98-107 gnkq=091) CO2 (BEAKER) (test 25 meq/L 22-29 gmcn=584) BLOOD UREA NITROGEN 44 mg/dL 7-21 (BEAKER) (test tzxj=332) CREATININE (BEAKER) (test 1.76 mg/dL 0.57-1.25 fgku=488) GLUCOSE RANDOM (BEAKER) 136 mg/dL 70-105 (test mrcu=360) CALCIUM (BEAKER) (test 8.2 mg/dL 8.4-10.2 qxjf=827) EGFR (BEAKER) (test 29 mL/min/1.73 sq m ESTIMATED GFR IS NOT cbkg=8344) ACCURATE CREATININE CLEARANCE IN PREDICTING GLOMERULAR FILTRATION RATE. ESTIMATED GFR IS NOT APPLICABLE FOR DIALYSIS PATIENTS. [id number] 07:28:00 Test Item Value Reference Range Comments PHOSPHORUS (BEAKER) (test nock=766) 3.8 mg/dL 2.3-4.7 [id number] 07:28:00 Test Item Value Reference Range Comments MAGNESIUM (BEAKER) (test kypc=996) 1.9 mg/dL 1.6-2.6 CBC W/PLT COUNT & AUTO [id number] 07:26:00 Test Item Value Reference Range Comments WHITE BLOOD CELL COUNT (BEAKER) (test qdgw=998) 6.3 K/ L 3.5-10.5 RED BLOOD CELL COUNT (BEAKER) (test ycap=637) 3.32 M/ L 3.93-5.22 HEMOGLOBIN (BEAKER) (test fmli=125) 8.5 GM/DL 11.2-15.7 HEMATOCRIT (BEAKER) (test jisa=996) 27.8 % 34.1-44.9 MEAN CORPUSCULAR VOLUME (BEAKER) (test rytv=271) 83.7 fL 79.4-94.8 MEAN CORPUSCULAR HEMOGLOBIN (BEAKER) (test 25.6 pg 25.6-32.2 ypti=290) MEAN CORPUSCULAR HEMOGLOBIN CONC (BEAKER) (test 30.6 GM/DL 32.2-35.5 zsbc=421) RED CELL DISTRIBUTION WIDTH (BEAKER) (test 15.0 % 11.7-14.4 xsnn=883) PLATELET COUNT (BEAKER) (test dsvp=192) 336 K/CU MM 150-450 MEAN PLATELET VOLUME (BEAKER) (test ecvm=423) 9.8 fL 9.4-12.3 NUCLEATED RED BLOOD CELLS (BEAKER) (test 0 /100 WBC 0-0 jksp=261) NEUTROPHILS RELATIVE PERCENT (BEAKER) (test 65 % ldvq=393) LYMPHOCYTES RELATIVE PERCENT (BEAKER) (test 24 % nisa=808) MONOCYTES RELATIVE PERCENT (BEAKER) (test 7 % rirj=607) EOSINOPHILS RELATIVE PERCENT (BEAKER) (test 3 % ajfo=533) BASOPHILS RELATIVE PERCENT (BEAKER) (test 0 % ounx=443) NEUTROPHILS ABSOLUTE COUNT (BEAKER) (test 4.13 K/ L 1.56-6.13 kaep=057) LYMPHOCYTES ABSOLUTE COUNT (BEAKER) (test 1.50 K/ L 1.18-3.74 nudk=480) MONOCYTES ABSOLUTE COUNT (BEAKER) (test 0.44 K/ L 0.24-0.36 kyku=483) EOSINOPHILS ABSOLUTE COUNT (BEAKER) (test 0.20 K/ L 0.04-0.36 uhnt=656) BASOPHILS ABSOLUTE COUNT (BEAKER) (test 0.02 K/ L 0.01-0.08 nohw=523) IMMATURE GRANULOCYTES-RELATIVE PERCENT (BEAKER) 1 % 0-1 (test liti=1932) POCT-GLUCOSE [id number] 07:21:00 Test Item Value Reference Range Comments POC-GLUCOSE METER (BEAKER) 146 mg/dL 70-110 TESTED AT [address] (test bscd=5624) [place] [address] POCT-GLUCOSE [id number] 22:02:00 Test Item Value Reference Range Comments POC-GLUCOSE METER (BEAKER) 201 mg/dL 70-110 TESTED AT [address] (test bvyz=7627) [place] [id number] POCT-GLUCOSE [id number] 18:27:00 Test Item Value Reference Range Comments POC-GLUCOSE METER (BEAKER) 240 mg/dL 70-110 TESTED AT [address] (test yfny=5496) [place] [address] POCT-GLUCOSE [id number] 12:13:00 Test Item Value Reference Range Comments POC-GLUCOSE METER (BEAKER) 193 mg/dL 70-110 TESTED AT [address] (test rmvq=2787) [place] [address] POCT-GLUCOSE [id number] 09:02:00 Test Item Value Reference Range Comments POC-GLUCOSE METER (BEAKER) 132 mg/dL 70-110 TESTED AT [facility] [address] [facility] (test ukrk=4180) [place] [address] CALCIUM, [id number] 05:42:00 Test Item Value Reference Range Comments CALCIUM IONIZED (BEAKER) (test etwj=414) 1.12 mmol/L 1.12-1.27 PH, BLOOD (BEAKER) (test xytd=0792) 7.34 COMPREHENSIVE METABOLIC [id number] 05:33:00 Test Item Value Reference Range Comments TOTAL PROTEIN (BEAKER) 5.9 gm/dL 6.0-8.3 (test fwzf=785) ALBUMIN (BEAKER) (test 2.7 g/dL 3.5-5.0 vzjr=7908) ALKALINE PHOSPHATASE 130 U/L 40-150 (BEAKER) (test vcvx=585) BILIRUBIN TOTAL (BEAKER) 0.3 mg/dL 0.2-1.2 (test ckvm=568) SODIUM (BEAKER) (test 135 meq/L 136-145 ptkh=035) POTASSIUM (BEAKER) (test 4.7 meq/L 3.5-5.1 csnb=851) CHLORIDE (BEAKER) (test 105 meq/L 98-107 hyyi=309) CO2 (BEAKER) (test 24 meq/L 22-29 yvtd=003) BLOOD UREA NITROGEN 42 mg/dL 7-21 (BEAKER) (test sebn=310) CREATININE (BEAKER) (test 1.78 mg/dL 0.57-1.25 sskq=730) GLUCOSE RANDOM (BEAKER) 129 mg/dL 70-105 (test byvy=711) CALCIUM (BEAKER) (test 8.5 mg/dL 8.4-10.2 ytjb=062) AST (SGOT) (BEAKER) (test 23 U/L 5-34 gsid=719) ALT (SGPT) (BEAKER) (test 15 U/L 6-55 bhws=853) EGFR (BEAKER) (test 29 mL/min/1.73 sq m ESTIMATED GFR IS NOT uejw=9148) ACCURATE CREATININE CLEARANCE IN PREDICTING GLOMERULAR FILTRATION RATE. ESTIMATED GFR IS NOT APPLICABLE FOR DIALYSIS PATIENTS. [id number] 05:32:00 Test Item Value Reference Range Comments PHOSPHORUS (BEAKER) (test jhev=675) 3.6 mg/dL 2.3-4.7 [id number] 05:32:00 Test Item Value Reference Range Comments MAGNESIUM (BEAKER) (test neqj=221) 2.2 mg/dL 1.6-2.6 CBC W/PLT COUNT & AUTO [id number] 05:01:00 Test Item Value Reference Range Comments WHITE BLOOD CELL COUNT (BEAKER) (test pgyw=542) 6.4 K/ L 3.5-10.5 RED BLOOD CELL COUNT (BEAKER) (test vmim=719) 3.43 M/ L 3.93-5.22 HEMOGLOBIN (BEAKER) (test wgbt=315) 8.9 GM/DL 11.2-15.7 HEMATOCRIT (BEAKER) (test bpih=964) 28.9 % 34.1-44.9 MEAN CORPUSCULAR VOLUME (BEAKER) (test dljr=855) 84.3 fL 79.4-94.8 MEAN CORPUSCULAR HEMOGLOBIN (BEAKER) (test 25.9 pg 25.6-32.2 vbaz=020) MEAN CORPUSCULAR HEMOGLOBIN CONC (BEAKER) (test 30.8 GM/DL 32.2-35.5 gked=413) RED CELL DISTRIBUTION WIDTH (BEAKER) (test 15.0 % 11.7-14.4 jivr=722) PLATELET COUNT (BEAKER) (test iwnx=794) 324 K/CU MM 150-450 MEAN PLATELET VOLUME (BEAKER) (test oodr=775) 9.3 fL 9.4-12.3 NUCLEATED RED BLOOD CELLS (BEAKER) (test 0 /100 WBC 0-0 tvcb=794) NEUTROPHILS RELATIVE PERCENT (BEAKER) (test 62 % peiu=812) LYMPHOCYTES RELATIVE PERCENT (BEAKER) (test 25 % vdcv=722) MONOCYTES RELATIVE PERCENT (BEAKER) (test 8 % rqma=616) EOSINOPHILS RELATIVE PERCENT (BEAKER) (test 4 % gnek=873) BASOPHILS RELATIVE PERCENT (BEAKER) (test 1 % gpjj=566) NEUTROPHILS ABSOLUTE COUNT (BEAKER) (test 3.93 K/ L 1.56-6.13 gfan=861) LYMPHOCYTES ABSOLUTE COUNT (BEAKER) (test 1.60 K/ L 1.18-3.74 yyre=402) MONOCYTES ABSOLUTE COUNT (BEAKER) (test 0.51 K/ L 0.24-0.36 vted=621) EOSINOPHILS ABSOLUTE COUNT (BEAKER) (test 0.25 K/ L 0.04-0.36 ryjo=652) BASOPHILS ABSOLUTE COUNT (BEAKER) (test 0.03 K/ L 0.01-0.08 dvoy=159) IMMATURE GRANULOCYTES-RELATIVE PERCENT (BEAKER) 1 % 0-1 (test gebq=3568) POCT-GLUCOSE [id number] 21:04:00 Test Item Value Reference Range Comments POC-GLUCOSE METER (BEAKER) 165 mg/dL 70-110 TESTED AT [address] (test ojmg=5566) [place] [address] POCT-GLUCOSE [id number] 17:30:00 Test Item Value Reference Range Comments POC-GLUCOSE METER (BEAKER) 236 mg/dL 70-110 TESTED AT [address] (test sink=0928) [place] [address] RAD, CHEST, 1 VIEW, NON [id number] 13:53:00Reason for exam:->assess for ill-defined opacityShould this be performed at the bedside?->YesFINAL REPORT Chest One view: Reason for exam: Ill-defined opacity Comparison Study: Chest x-ray, yesterday Discussion: The cardiac silhouette is slightly enlarged. Sternal wires are present. Bilateral chest tubes are again seen. No pneumothorax is seen. Lung base atelectasis is again identified, left more than right. This is not appreciably changed. The pulmonary vessels are also slightly congested. Impression: No change. Signed: Luis Alberto Callaway MDReport Verified Date/Time: 05/28/2017 13:53:03 Reading Location: [address] Radiology Reading Room Electronically signed by: LUIS ALBERTO CALLAWAY M.D. on 01:53 PMPOCT-GLUCOSE [id number] 11:53:00 Test Item Value Reference Range Comments POC-GLUCOSE METER (BEAKER) 215 mg/dL 70-110 TESTED AT [address] (test oktv=1398) [place] [id number] POCT-GLUCOSE [id number] 08:32:00 Test Item Value Reference Range Comments POC-GLUCOSE METER (BEAKER) 168 mg/dL 70-110 TESTED AT [facility] [address] (test yepl=5756) [place] [address] CALCIUM, [id number] 05:44:00 Test Item Value Reference Range Comments CALCIUM IONIZED (BEAKER) (test eotj=216) 1.09 mmol/L 1.12-1.27 PH, BLOOD (BEAKER) (test fgfl=3181) 7.38 [id number] 05:44:00 Test Item Value Reference Range Comments PHOSPHORUS (BEAKER) (test nvkv=656) 3.5 mg/dL 2.3-4.7 [id number] 05:44:00 Test Item Value Reference Range Comments MAGNESIUM (BEAKER) (test bfrq=259) 1.9 mg/dL 1.6-2.6 BASIC METABOLIC [id number] 05:44:00 Test Item Value Reference Range Comments SODIUM (BEAKER) (test 137 meq/L 136-145 kepz=915) POTASSIUM (BEAKER) (test 4.5 meq/L 3.5-5.1 blhw=143) CHLORIDE (BEAKER) (test 108 meq/L 98-107 qwil=359) CO2 (BEAKER) (test 23 meq/L 22-29 ftpw=152) BLOOD UREA NITROGEN 41 mg/dL 7-21 (BEAKER) (test ymwq=023) CREATININE (BEAKER) (test 1.41 mg/dL 0.57-1.25 ivjs=907) GLUCOSE RANDOM (BEAKER) 113 mg/dL 70-105 (test ukwe=946) CALCIUM (BEAKER) (test 8.1 mg/dL 8.4-10.2 qqst=581) EGFR (BEAKER) (test 38 mL/min/1.73 sq m ESTIMATED GFR IS NOT emli=5478) ACCURATE CREATININE CLEARANCE IN PREDICTING GLOMERULAR FILTRATION RATE. ESTIMATED GFR IS NOT APPLICABLE FOR DIALYSIS PATIENTS. CBC W/PLT COUNT & AUTO [id number] 05:05:00 Test Item Value Reference Range Comments WHITE BLOOD CELL COUNT (BEAKER) (test ntqd=194) 6.3 K/ L 3.5-10.5 RED BLOOD CELL COUNT (BEAKER) (test kgis=208) 3.40 M/ L 3.93-5.22 HEMOGLOBIN (BEAKER) (test gtez=038) 8.8 GM/DL 11.2-15.7 HEMATOCRIT (BEAKER) (test qbdz=490) 29.0 % 34.1-44.9 MEAN CORPUSCULAR VOLUME (BEAKER) (test inrv=844) 85.3 fL 79.4-94.8 MEAN CORPUSCULAR HEMOGLOBIN (BEAKER) (test 25.9 pg 25.6-32.2 ukjc=658) MEAN CORPUSCULAR HEMOGLOBIN CONC (BEAKER) (test 30.3 GM/DL 32.2-35.5 yasr=863) RED CELL DISTRIBUTION WIDTH (BEAKER) (test 14.9 % 11.7-14.4 rhro=187) PLATELET COUNT (BEAKER) (test cfdr=439) 282 K/CU MM 150-450 MEAN PLATELET VOLUME (BEAKER) (test badp=837) 9.5 fL 9.4-12.3 NUCLEATED RED BLOOD CELLS (BEAKER) (test 0 /100 WBC 0-0 djcq=588) NEUTROPHILS RELATIVE PERCENT (BEAKER) (test 59 % thzo=146) LYMPHOCYTES RELATIVE PERCENT (BEAKER) (test 28 % ftqz=021) MONOCYTES RELATIVE PERCENT (BEAKER) (test 7 % zijm=335) EOSINOPHILS RELATIVE PERCENT (BEAKER) (test 4 % gewr=632) BASOPHILS RELATIVE PERCENT (BEAKER) (test 1 % wfuk=314) NEUTROPHILS ABSOLUTE COUNT (BEAKER) (test 3.75 K/ L 1.56-6.13 hvdx=871) LYMPHOCYTES ABSOLUTE COUNT (BEAKER) (test 1.80 K/ L 1.18-3.74 pnrv=942) MONOCYTES ABSOLUTE COUNT (BEAKER) (test 0.45 K/ L 0.24-0.36 aqfs=562) EOSINOPHILS ABSOLUTE COUNT (BEAKER) (test 0.25 K/ L 0.04-0.36 duuo=403) BASOPHILS ABSOLUTE COUNT (BEAKER) (test 0.05 K/ L 0.01-0.08 qwna=453) IMMATURE GRANULOCYTES-RELATIVE PERCENT (BEAKER) 1 % 0-1 (test fpqv=9334) POCT-GLUCOSE [id number] 21:03:00 Test Item Value Reference Range Comments POC-GLUCOSE METER (BEAKER) 173 mg/dL 70-110 TESTED AT [address] (test lxsr=9837) [place] [address] [id number] 18:15:00 Test Item Value Reference Range Comments ACTIVATED CLOTTING TIME 147 sec TESTED AT [address] (BEAKER) (test klxx=224) [place] [address] [id number] 18:15:00 Test Item Value Reference Range Comments ACTIVATED CLOTTING TIME 246 sec TESTED AT [address] (BEAKER) (test lmfq=523) [place] [address] POCT-GLUCOSE [id number] 12:39:00 Test Item Value Reference Range Comments POC-GLUCOSE METER (BEAKER) 219 mg/dL 70-110 TESTED AT [address] (test scqh=5893) [place] [address] RAD, CHEST, 1 VIEW, NON [id number] 10:11:00Reason for exam:->pl effusionShould this be performed at the bedside?->YesFINAL REPORT Chest one view compared to May 26 Discussion: There is cardiac prominence. Upper lungs are clear. Ill-defined basilar densities are similar probably atelectasis. No gross effusion or pneumothorax with bilateral chest tubes in place. Signed: Jeannette Nava Verified Date/Time: 2017 10:11:44 Reading Location: [facility] Radiology Reading Room POCT- GLUCOSE [id number] 07:05:00 Test Item Value Reference Range Comments POC-GLUCOSE METER (BEAKER) 167 mg/dL 70-110 TESTED AT [address] (test zkwm=7835) [place] [id number] CALCIUM, [id number] 06:20:00 Test Item Value Reference Range Comments CALCIUM IONIZED (BEAKER) (test bupy=121) 0.98 mmol/L 1.12-1.27 PH, BLOOD (BEAKER) (test npis=8477) 7.50 [id number] 04:56:00 Test Item Value Reference Range Comments PHOSPHORUS (BEAKER) (test hnbf=012) 2.6 mg/dL 2.3-4.7 [id number] 04:56:00 Test Item Value Reference Range Comments MAGNESIUM (BEAKER) (test cidz=758) 2.0 mg/dL 1.6-2.6 BASIC METABOLIC [id number] 04:56:00 Test Item Value Reference Range Comments SODIUM (BEAKER) (test 135 meq/L 136-145 vaby=484) POTASSIUM (BEAKER) (test 4.5 meq/L 3.5-5.1 txgr=010) CHLORIDE (BEAKER) (test 105 meq/L 98-107 lxyw=884) CO2 (BEAKER) (test 22 meq/L 22-29 diow=974) BLOOD UREA NITROGEN 47 mg/dL 7-21 (BEAKER) (test jcxj=224) CREATININE (BEAKER) (test 1.44 mg/dL 0.57-1.25 kvgc=961) GLUCOSE RANDOM (BEAKER) 177 mg/dL 70-105 (test hpth=060) CALCIUM (BEAKER) (test 8.0 mg/dL 8.4-10.2 utwq=095) EGFR (BEAKER) (test 37 mL/min/1.73 sq m ESTIMATED GFR IS NOT wqpb=5302) ACCURATE CREATININE CLEARANCE IN PREDICTING GLOMERULAR FILTRATION RATE. ESTIMATED GFR IS NOT APPLICABLE FOR DIALYSIS PATIENTS. CBC W/PLT COUNT & AUTO [id number] 04:36:00 Test Item Value Reference Range Comments WHITE BLOOD CELL COUNT (BEAKER) (test pjnf=702) 6.1 K/ L 3.5-10.5 RED BLOOD CELL COUNT (BEAKER) (test ynpg=498) 3.35 M/ L 3.93-5.22 HEMOGLOBIN (BEAKER) (test ffuw=227) 8.6 GM/DL 11.2-15.7 HEMATOCRIT (BEAKER) (test mfsg=480) 28.0 % 34.1-44.9 MEAN CORPUSCULAR VOLUME (BEAKER) (test tgea=088) 83.6 fL 79.4-94.8 MEAN CORPUSCULAR HEMOGLOBIN (BEAKER) (test 25.7 pg 25.6-32.2 kamb=033) MEAN CORPUSCULAR HEMOGLOBIN CONC (BEAKER) (test 30.7 GM/DL 32.2-35.5 mjmt=814) RED CELL DISTRIBUTION WIDTH (BEAKER) (test 14.7 % 11.7-14.4 diat=893) PLATELET COUNT (BEAKER) (test prth=950) 280 K/CU MM 150-450 MEAN PLATELET VOLUME (BEAKER) (test xawq=160) 9.9 fL 9.4-12.3 NUCLEATED RED BLOOD CELLS (BEAKER) (test 0 /100 WBC 0-0 lqis=821) NEUTROPHILS RELATIVE PERCENT (BEAKER) (test 65 % ltra=871) LYMPHOCYTES RELATIVE PERCENT (BEAKER) (test 23 % vilj=638) MONOCYTES RELATIVE PERCENT (BEAKER) (test 7 % cqvt=673) EOSINOPHILS RELATIVE PERCENT (BEAKER) (test 4 % qypx=408) BASOPHILS RELATIVE PERCENT (BEAKER) (test 1 % pmrh=865) NEUTROPHILS ABSOLUTE COUNT (BEAKER) (test 3.97 K/ L 1.56-6.13 eofu=575) LYMPHOCYTES ABSOLUTE COUNT (BEAKER) (test 1.41 K/ L 1.18-3.74 ctxi=519) MONOCYTES ABSOLUTE COUNT (BEAKER) (test 0.44 K/ L 0.24-0.36 fhgz=230) EOSINOPHILS ABSOLUTE COUNT (BEAKER) (test 0.22 K/ L 0.04-0.36 qwwx=698) BASOPHILS ABSOLUTE COUNT (BEAKER) (test 0.05 K/ L 0.01-0.08 rymt=624) IMMATURE GRANULOCYTES-RELATIVE PERCENT (BEAKER) 1 % 0-1 (test ncbt=0056) POCT-GLUCOSE [id number] 21:29:00 Test Item Value Reference Range Comments POC-GLUCOSE METER (BEAKER) 147 mg/dL 70-110 TESTED AT [address] (test qjwr=0915) [place] [id number] POCT-GLUCOSE [id number] 17:51:00 Test Item Value Reference Range Comments POC-GLUCOSE METER (BEAKER) 224 mg/dL 70-110 TESTED AT [address] (test wlko=2136) [place] [id number] POCT-GLUCOSE [id number] 13:53:00 Test Item Value Reference Range Comments POC-GLUCOSE METER (BEAKER) 182 mg/dL 70-110 TESTED AT [address] (test zdpp=5804) [place] [address] RAD, CHEST, 1 VIEW, NON [id number] 08:44:00Reason for exam:->pl effusionShould this be performed at the bedside?->YesFINAL REPORT Portable chest CLINICAL HISTORY: Pleural effusion CLINICAL HISTORY : May 25, 2017. FINDINGS: The cardiac silhouette is enlarged. The patient is status post sternotomy. Bilateral chest tubes are noted. There is bibasilar atelectasis or consolidation with costophrenic angle blunting. The remaining pulmonary parenchyma demonstrates interstitial markings. A right central line is present. No pneumothorax is seen. IMPRESSION: Removal of nasogastric tube. No other significant change. Signed: Gene Ramirez MDReport Verified Date/Time : 05/26/2017 08:44:25 Reading Location: [address] Radiology Reading Room POCT- GLUCOSE [id number] 07:43:00 Test Item Value Reference Range Comments POC-GLUCOSE METER (BEAKER) 113 mg/dL 70-110 TESTED AT [address] (test umsd=5518) [place] [address] CALCIUM, [id number] 06:31:00 Test Item Value Reference Range Comments CALCIUM IONIZED (BEAKER) (test xsfv=497) 1.07 mmol/L 1.12-1.27 PH, BLOOD (BEAKER) (test lkwl=9135) 7.38 [id number] 04:51:00 Test Item Value Reference Range Comments PHOSPHORUS (BEAKER) (test hfxz=354) 3.2 mg/dL 2.3-4.7 [id number] 04:51:00 Test Item Value Reference Range Comments MAGNESIUM (BEAKER) (test qoml=695) 2.1 mg/dL 1.6-2.6 BASIC METABOLIC [id number] 04:51:00 Test Item Value Reference Range Comments SODIUM (BEAKER) (test 139 meq/L 136-145 eifg=688) POTASSIUM (BEAKER) (test 4.1 meq/L 3.5-5.1 xxea=347) CHLORIDE (BEAKER) (test 106 meq/L 98-107 jnis=091) CO2 (BEAKER) (test 24 meq/L 22-29 kofe=695) BLOOD UREA NITROGEN 52 mg/dL 7-21 (BEAKER) (test oxwa=843) CREATININE (BEAKER) (test 1.52 mg/dL 0.57-1.25 mhrq=087) GLUCOSE RANDOM (BEAKER) 108 mg/dL 70-105 (test jnhp=843) CALCIUM (BEAKER) (test 8.4 mg/dL 8.4-10.2 ifya=813) EGFR (BEAKER) (test 35 mL/min/1.73 sq m ESTIMATED GFR IS NOT oljs=7231) ACCURATE CREATININE CLEARANCE IN PREDICTING GLOMERULAR FILTRATION RATE. ESTIMATED GFR IS NOT APPLICABLE FOR DIALYSIS PATIENTS. CBC W/PLT COUNT & AUTO [id number] 04:27:00 Test Item Value Reference Range Comments WHITE BLOOD CELL COUNT (BEAKER) (test bcgy=678) 7.2 K/ L 3.5-10.5 RED BLOOD CELL COUNT (BEAKER) (test cjkf=865) 3.53 M/ L 3.93-5.22 HEMOGLOBIN (BEAKER) (test rjcq=070) 9.1 GM/DL 11.2-15.7 HEMATOCRIT (BEAKER) (test upra=161) 29.5 % 34.1-44.9 MEAN CORPUSCULAR VOLUME (BEAKER) (test bdry=477) 83.6 fL 79.4-94.8 MEAN CORPUSCULAR HEMOGLOBIN (BEAKER) (test 25.8 pg 25.6-32.2 qqoz=983) MEAN CORPUSCULAR HEMOGLOBIN CONC (BEAKER) (test 30.8 GM/DL 32.2-35.5 tusi=711) RED CELL DISTRIBUTION WIDTH (BEAKER) (test 14.6 % 11.7-14.4 bfkd=663) PLATELET COUNT (BEAKER) (test jyvq=160) 296 K/CU MM 150-450 MEAN PLATELET VOLUME (BEAKER) (test egwh=496) 9.5 fL 9.4-12.3 NUCLEATED RED BLOOD CELLS (BEAKER) (test 0 /100 WBC 0-0 dfqz=640) NEUTROPHILS RELATIVE PERCENT (BEAKER) (test 67 % gqxj=642) LYMPHOCYTES RELATIVE PERCENT (BEAKER) (test 21 % pibs=407) MONOCYTES RELATIVE PERCENT (BEAKER) (test 7 % hfpo=962) EOSINOPHILS RELATIVE PERCENT (BEAKER) (test 4 % btqu=318) BASOPHILS RELATIVE PERCENT (BEAKER) (test 1 % shzj=906) NEUTROPHILS ABSOLUTE COUNT (BEAKER) (test 4.79 K/ L 1.56-6.13 eofj=201) LYMPHOCYTES ABSOLUTE COUNT (BEAKER) (test 1.49 K/ L 1.18-3.74 qizy=590) MONOCYTES ABSOLUTE COUNT (BEAKER) (test 0.50 K/ L 0.24-0.36 zemb=711) EOSINOPHILS ABSOLUTE COUNT (BEAKER) (test 0.30 K/ L 0.04-0.36 sssp=413) BASOPHILS ABSOLUTE COUNT (BEAKER) (test 0.05 K/ L 0.01-0.08 hywx=853) IMMATURE GRANULOCYTES-RELATIVE PERCENT (BEAKER) 0 % 0-1 (test muii=0987) POCT-GLUCOSE [id number] 23:48:00 Test Item Value Reference Range Comments POC-GLUCOSE METER (BEAKER) 123 mg/dL 70-110 TESTED AT [address] (test fyoy=9386) [place] [id number] POCT-GLUCOSE [id number] 16:46:00 Test Item Value Reference Range Comments POC-GLUCOSE METER (BEAKER) 178 mg/dL 70-110 TESTED AT [address] (test yglz=6364) [place] [address] BASIC METABOLIC [id number] 05:53:00 Test Item Value Reference Range Comments SODIUM (BEAKER) (test 139 meq/L 136-145 iduf=614) POTASSIUM (BEAKER) (test 3.9 meq/L 3.5-5.1 fwtu=807) CHLORIDE (BEAKER) (test 106 meq/L 98-107 lsid=840) CO2 (BEAKER) (test 23 meq/L 22-29 lxru=226) BLOOD UREA NITROGEN 62 mg/dL 7-21 (BEAKER) (test bgyg=201) CREATININE (BEAKER) (test 2.05 mg/dL 0.57-1.25 jofi=547) GLUCOSE RANDOM (BEAKER) 87 mg/dL 70-105 (test zdwv=365) CALCIUM (BEAKER) (test 7.9 mg/dL 8.4-10.2 aiur=180) EGFR (BEAKER) (test 25 mL/min/1.73 sq m ESTIMATED GFR IS NOT onol=3301) ACCURATE CREATININE CLEARANCE IN PREDICTING GLOMERULAR FILTRATION RATE. ESTIMATED GFR IS NOT APPLICABLE FOR DIALYSIS PATIENTS. [id number] 05:52:00 Test Item Value Reference Range Comments PHOSPHORUS (BEAKER) (test cyaf=901) 4.2 mg/dL 2.3-4.7 [id number] 05:52:00 Test Item Value Reference Range Comments MAGNESIUM (BEAKER) (test rrbg=484) 2.3 mg/dL 1.6-2.6 CALCIUM, [id number] 05:27:00 Test Item Value Reference Range Comments CALCIUM IONIZED (BEAKER) (test ksqs=174) 1.12 mmol/L 1.12-1.27 PH, BLOOD (BEAKER) (test pbyy=5922) 7.38 CBC W/PLT COUNT & AUTO [id number] 05:07:00 Test Item Value Reference Range Comments WHITE BLOOD CELL COUNT (BEAKER) (test jfdc=771) 8.4 K/ L 3.5-10.5 RED BLOOD CELL COUNT (BEAKER) (test higg=057) 3.16 M/ L 3.93-5.22 HEMOGLOBIN (BEAKER) (test ilmp=694) 8.2 GM/DL 11.2-15.7 HEMATOCRIT (BEAKER) (test ltwr=241) 26.5 % 34.1-44.9 MEAN CORPUSCULAR VOLUME (BEAKER) (test ggon=210) 83.9 fL 79.4-94.8 MEAN CORPUSCULAR HEMOGLOBIN (BEAKER) (test 25.9 pg 25.6-32.2 eeqz=036) MEAN CORPUSCULAR HEMOGLOBIN CONC (BEAKER) (test 30.9 GM/DL 32.2-35.5 mzeg=006) RED CELL DISTRIBUTION WIDTH (BEAKER) (test 14.6 % 11.7-14.4 blib=591) PLATELET COUNT (BEAKER) (test ohjr=694) 256 K/CU MM 150-450 MEAN PLATELET VOLUME (BEAKER) (test viwy=571) 10.0 fL 9.4-12.3 NUCLEATED RED BLOOD CELLS (BEAKER) (test 0 /100 WBC 0-0 ewcb=435) NEUTROPHILS RELATIVE PERCENT (BEAKER) (test 63 % yjga=976) LYMPHOCYTES RELATIVE PERCENT (BEAKER) (test 25 % bqdj=588) MONOCYTES RELATIVE PERCENT (BEAKER) (test 8 % ngsp=228) EOSINOPHILS RELATIVE PERCENT (BEAKER) (test 3 % cnhl=894) BASOPHILS RELATIVE PERCENT (BEAKER) (test 1 % rytr=173) NEUTROPHILS ABSOLUTE COUNT (BEAKER) (test 5.27 K/ L 1.56-6.13 dksi=874) LYMPHOCYTES ABSOLUTE COUNT (BEAKER) (test 2.09 K/ L 1.18-3.74 qsre=421) MONOCYTES ABSOLUTE COUNT (BEAKER) (test 0.63 K/ L 0.24-0.36 msia=277) EOSINOPHILS ABSOLUTE COUNT (BEAKER) (test 0.27 K/ L 0.04-0.36 qvjt=801) BASOPHILS ABSOLUTE COUNT (BEAKER) (test 0.05 K/ L 0.01-0.08 ywdw=079) IMMATURE GRANULOCYTES-RELATIVE PERCENT (BEAKER) 1 % 0-1 (test vhnk=8969) RAD, CHEST, 1 VIEW, NON [id number] 04:45:00Reason for exam:->pl effusionShould this be performed at the bedside?->YesFINAL REPORT RAD, CHEST, 1 VIEW, NON DEPT INDICATION: pl effusion COMPARISON: Prior day's exam FINDINGS: Portable frontal view of the chest. IMPRESSION: Support Lines: Stable.Lungs and pleura: Unchanged airspace and pleural opacities. No pneumothorax.Heart and mediastinum: Stable contours. Stable surgical changes.Additional findings: None. Signed: JR Boswell Robert MDReport Verified Date/Time: 05/25/2017 04:45:08 Reading Location: [facility] C013Y CT Body Reading Room POCT-GLUCOSE [id number] 01:52:00 Test Item Value Reference Range Comments POC-GLUCOSE METER (BEAKER) 126 mg/dL 70-110 TESTED AT [address] (test qavn=4880) [place] [address] POCT-GLUCOSE [id number] 13:07:00 Test Item Value Reference Range Comments POC-GLUCOSE METER (BEAKER) 118 mg/dL 70-110 TESTED AT [address] (test tvhi=0129) [place] [address] BRONCHIAL CULTURE + GRAM [id number] 11:35:00 Test Item Value Reference Range Comments CULTURE (BEAKER) (test sqcg=9521) Amikacin (test code=1) Susceptible 0-16 , Resistant <0 or >16 Aztreonam (test code=32) Susceptible 0-8 , Resistant <0 or >8 Cefepime (test code=51) Susceptible 0-8 , Resistant <0 or >8 Ceftazidime (test Susceptible 0-8 , code=27) Resistant <0 or >8 Ciprofloxacin (test Susceptible 0-1 , code=7) Resistant <0 or >1 Gentamicin (test code=18) Susceptible 0-4 , Resistant <0 or >4 Imipenem (test code=19) Susceptible 0-4 , Resistant <0 or >4 Levofloxacin (test Susceptible 0-2 , code=22) Resistant <0 or >2 Meropenem (test code=34) Susceptible 0-4 , Resistant <0 or >4 Piperacillin + Tazobactam Susceptible 0-16 , (test code=29) Resistant <0 or >16 Tobramycin (test code=25) Susceptible 0-4 , Resistant <0 or >4 Trimethoprim + Susceptible 0-40 , Sulfamethoxazole (test Resistant <0 or code=47) >40 CULTURE (BEAKER) (test 4+ Bordetella dzox=5550) bronchiseptica GRAM STAIN RESULT 1+ WBCs (BEAKER) (test nijs=4386) GRAM STAIN RESULT <1+ gram (BEAKER) (test positive cocci in jqxc=410345) pairs GRAM STAIN RESULT 1+ gram variable (BEAKER) (test rods eypw=980920) 1+ Normal respiratory todd presentRAD, CHEST, 1 VIEW, NON [id number] 06:50: 00Reason for exam:->pl effusionShould this be performed at the bedside?-> YesFINAL REPORT RAD, CHEST, 1 VIEW, NON DEPT INDICATION: pl effusion COMPARISON:Prior day's exam FINDINGS: Portable frontal view of the chest. IMPRESSION: Support Lines: Stable.Lungs and pleura: Unchanged airspace and pleural opacities. No pneumothorax.Heart and mediastinum: Stable contours. Stable surgical changes.Additional findings: None. Signed: JR Elbert, Kelly Bettencourt Verified Date/Time: 05/24/2017 06:50:08 Reading Location: [facility] C013Y CT Body Reading Room BASIC METABOLIC [id number] 04: 19:00 Test Item Value Reference Range Comments SODIUM (BEAKER) (test 136 meq/L 136-145 rouc=736) POTASSIUM (BEAKER) (test 4.3 meq/L 3.5-5.1 zyvu=047) CHLORIDE (BEAKER) (test 104 meq/L 98-107 mknt=630) CO2 (BEAKER) (test 20 meq/L 22-29 orcx=877) BLOOD UREA NITROGEN 61 mg/dL 7-21 (BEAKER) (test btip=902) CREATININE (BEAKER) (test 2.69 mg/dL 0.57-1.25 pcxd=280) GLUCOSE RANDOM (BEAKER) 107 mg/dL 70-105 (test nkkc=447) CALCIUM (BEAKER) (test 7.8 mg/dL 8.4-10.2 jrdd=339) EGFR (BEAKER) (test 18 mL/min/1.73 sq m ESTIMATED GFR IS NOT mjqo=8251) ACCURATE CREATININE CLEARANCE IN PREDICTING GLOMERULAR FILTRATION RATE. ESTIMATED GFR IS NOT APPLICABLE FOR DIALYSIS PATIENTS. CALCIUM, [id number] 04:16:00 Test Item Value Reference Range Comments CALCIUM IONIZED (BEAKER) (test wfrp=485) 1.06 mmol/L 1.12-1.27 PH, BLOOD (BEAKER) (test okrl=1179) 7.40 [id number] 04:11:00 Test Item Value Reference Range Comments PHOSPHORUS (BEAKER) (test xaxs=567) 6.0 mg/dL 2.3-4.7 [id number] 04:11:00 Test Item Value Reference Range Comments MAGNESIUM (BEAKER) (test kxgo=408) 2.4 mg/dL 1.6-2.6 CBC W/PLT COUNT & AUTO [id number] 03:50:00 Test Item Value Reference Range Comments WHITE BLOOD CELL COUNT (BEAKER) (test eucx=523) 9.5 K/ L 3.5-10.5 RED BLOOD CELL COUNT (BEAKER) (test cwug=127) 3.06 M/ L 3.93-5.22 HEMOGLOBIN (BEAKER) (test jhgd=487) 7.9 GM/DL 11.2-15.7 HEMATOCRIT (BEAKER) (test jjai=832) 25.5 % 34.1-44.9 MEAN CORPUSCULAR VOLUME (BEAKER) (test fnxi=527) 83.3 fL 79.4-94.8 MEAN CORPUSCULAR HEMOGLOBIN (BEAKER) (test 25.8 pg 25.6-32.2 yuag=764) MEAN CORPUSCULAR HEMOGLOBIN CONC (BEAKER) (test 31.0 GM/DL 32.2-35.5 hwmt=628) RED CELL DISTRIBUTION WIDTH (BEAKER) (test 15.1 % 11.7-14.4 xyfe=507) PLATELET COUNT (BEAKER) (test upyt=603) 224 K/CU MM 150-450 MEAN PLATELET VOLUME (BEAKER) (test ptuz=300) 10.5 fL 9.4-12.3 NUCLEATED RED BLOOD CELLS (BEAKER) (test 0 /100 WBC 0-0 bhwt=454) NEUTROPHILS RELATIVE PERCENT (BEAKER) (test 70 % gvbx=533) LYMPHOCYTES RELATIVE PERCENT (BEAKER) (test 21 % qwem=140) MONOCYTES RELATIVE PERCENT (BEAKER) (test 7 % vvmx=118) EOSINOPHILS RELATIVE PERCENT (BEAKER) (test 2 % hkna=742) BASOPHILS RELATIVE PERCENT (BEAKER) (test 0 % nqrz=494) NEUTROPHILS ABSOLUTE COUNT (BEAKER) (test 6.60 K/ L 1.56-6.13 cldr=464) LYMPHOCYTES ABSOLUTE COUNT (BEAKER) (test 2.02 K/ L 1.18-3.74 wrsv=091) MONOCYTES ABSOLUTE COUNT (BEAKER) (test 0.63 K/ L 0.24-0.36 mefd=877) EOSINOPHILS ABSOLUTE COUNT (BEAKER) (test 0.15 K/ L 0.04-0.36 gvao=968) BASOPHILS ABSOLUTE COUNT (BEAKER) (test 0.04 K/ L 0.01-0.08 juuy=813) IMMATURE GRANULOCYTES-RELATIVE PERCENT (BEAKER) 0 % 0-1 (test zzxe=8243) POCT-GLUCOSE [id number] 20:45:00 Test Item Value Reference Range Comments POC-GLUCOSE METER (BEAKER) 143 mg/dL 70-110 TESTED AT [address] (test lgbg=1853) [place] [address] POCT-GLUCOSE [id number] 20:45:00 Test Item Value Reference Range Comments POC-GLUCOSE METER (BEAKER) 145 mg/dL 70-110 TESTED AT [address] (test sjqm=8949) [place] [address] [id number] 13:37:00 Test Item Value Reference Range Comments PREALBUMIN (BEAKER) (test 10 mg/dL 14-45 Specimen slightly hemolyzed syep=230) OXYGEN SATURATION, [id number] 12:31:00 Test Item Value Reference Range Comments O2 SATURATION (MEASURED) (BEAKER) (test hkpu=7842) 94.5 % [id number] 11:02:00 Test Item Value Reference Range Comments PREALBUMIN (BEAKER) (test wswm=632) 10 mg/dL 14-45 RAD, CHEST, 1 VIEW, NON [id number] 05:14:00while patient is intubated or has chest tubes.Reason for exam:->chest tubesShould this be performed at the bedside?->YesFINAL REPORT RAD, CHEST, 1 VIEW, NON DEPT INDICATION: chest tubes COMPARISON:Prior day's exam FINDINGS: Portable frontal view of the chest. IMPRESSION: Support Lines: Interval extubation. Remaining support hardware is stable. Lungs and pleura: Scattered subsegmental atelectasis without new consolidation or effusion. No pneumothorax.Heart and mediastinum: Stable contours. Stable surgical changes.Additional findings: None. Signed: JR Boswell Robert MDReport Verified Date/Time: 05/23/2017 05:14:04 Reading Location: [facility] C013Y CT Body Reading Room BASIC METABOLIC [id number] 03:48:00 Test Item Value Reference Range Comments SODIUM (BEAKER) (test 138 meq/L 136-145 upmi=422) POTASSIUM (BEAKER) (test 4.6 meq/L 3.5-5.1 Specimen slightly kcec=457) hemolyzed CHLORIDE (BEAKER) (test 106 meq/L 98-107 rqqa=710) CO2 (BEAKER) (test 20 meq/L 22-29 nlyk=070) BLOOD UREA NITROGEN 54 mg/dL 7-21 (BEAKER) (test thib=536) CREATININE (BEAKER) (test 2.66 mg/dL 0.57-1.25 Specimen slightly nmdw=547) hemolyzed GLUCOSE RANDOM (BEAKER) 113 mg/dL 70-105 (test bjvx=203) CALCIUM (BEAKER) (test 7.9 mg/dL 8.4-10.2 pqfm=424) EGFR (BEAKER) (test 18 mL/min/1.73 sq m ESTIMATED GFR IS NOT rcak=3576) ACCURATE CREATININE CLEARANCE IN PREDICTING GLOMERULAR FILTRATION RATE. ESTIMATED GFR IS NOT APPLICABLE FOR DIALYSIS PATIENTS. [id number] 03:46:00 Test Item Value Reference Range Comments MAGNESIUM (BEAKER) (test 2.4 mg/dL 1.6-2.6 Specimen slightly hemolyzed wzdh=309) [id number] 03:46:00 Test Item Value Reference Range Comments PHOSPHORUS (BEAKER) (test 6.5 mg/dL 2.3-4.7 Specimen slightly hemolyzed qwac=809) CBC W/PLT COUNT & AUTO [id number] 03:26:00 Test Item Value Reference Range Comments WHITE BLOOD CELL COUNT (BEAKER) (test byko=955) 10.8 K/ L 3.5-10.5 RED BLOOD CELL COUNT (BEAKER) (test tyot=519) 3.16 M/ L 3.93-5.22 HEMOGLOBIN (BEAKER) (test lsxo=241) 8.2 GM/DL 11.2-15.7 HEMATOCRIT (BEAKER) (test iwbo=044) 26.6 % 34.1-44.9 MEAN CORPUSCULAR VOLUME (BEAKER) (test bspb=271) 84.2 fL 79.4-94.8 MEAN CORPUSCULAR HEMOGLOBIN (BEAKER) (test 25.9 pg 25.6-32.2 jduy=591) MEAN CORPUSCULAR HEMOGLOBIN CONC (BEAKER) (test 30.8 GM/DL 32.2-35.5 fxwz=560) RED CELL DISTRIBUTION WIDTH (BEAKER) (test 15.0 % 11.7-14.4 tbwd=006) PLATELET COUNT (BEAKER) (test bxur=609) 195 K/CU MM 150-450 MEAN PLATELET VOLUME (BEAKER) (test efzc=486) 10.6 fL 9.4-12.3 NUCLEATED RED BLOOD CELLS (BEAKER) (test 0 /100 WBC 0-0 vrmn=500) NEUTROPHILS RELATIVE PERCENT (BEAKER) (test 73 % yqje=366) LYMPHOCYTES RELATIVE PERCENT (BEAKER) (test 18 % degh=850) MONOCYTES RELATIVE PERCENT (BEAKER) (test 6 % wlma=922) EOSINOPHILS RELATIVE PERCENT (BEAKER) (test 2 % leys=722) BASOPHILS RELATIVE PERCENT (BEAKER) (test 1 % ccyc=272) NEUTROPHILS ABSOLUTE COUNT (BEAKER) (test 7.95 K/ L 1.56-6.13 taxj=942) LYMPHOCYTES ABSOLUTE COUNT (BEAKER) (test 1.93 K/ L 1.18-3.74 kydc=515) MONOCYTES ABSOLUTE COUNT (BEAKER) (test 0.66 K/ L 0.24-0.36 besn=861) EOSINOPHILS ABSOLUTE COUNT (BEAKER) (test 0.18 K/ L 0.04-0.36 qxal=494) BASOPHILS ABSOLUTE COUNT (BEAKER) (test 0.07 K/ L 0.01-0.08 imbo=476) IMMATURE GRANULOCYTES-RELATIVE PERCENT (BEAKER) 0 % 0-1 (test sibb=5453) BLOOD GAS, [id number] 03:18:00 Test Item Value Reference Range Comments PH ARTERIAL (BEAKER) (test scfh=050) 7.40 7.35-7.45 PCO2 ARTERIAL (BEAKER) (test hwgi=339) 40 mmHg 35-45 PO2 ARTERIAL (BEAKER) (test jfow=613) 63 mmHg 80-90 O2 SATURATION ARTERIAL (BEAKER) (test wptr=489) 92.3 % 96.0-97.0 HCO3 ARTERIAL (BEAKER) (test dwwe=245) 24 mmol/L 21-29 BASE EXCESS ARTERIAL (BEAKER) (test wdfv=609) -0.6 mmol/L -2.0-3.0 PATIENT TEMPERATURE (BEAKER) (test jyok=8965) 36.8 C FIO2 (BEAKER) (test zalv=3325) 36.0 % CALCIUM, [id number] 16:32:00 Test Item Value Reference Range Comments CALCIUM IONIZED (BEAKER) (test xxqs=254) 1.11 mmol/L 1.12-1.27 PH, BLOOD (BEAKER) (test clhw=6217) 7.39 BASIC METABOLIC [id number] 15:43:00 Test Item Value Reference Range Comments SODIUM (BEAKER) (test 139 meq/L 136-145 wdan=840) POTASSIUM (BEAKER) (test 4.6 meq/L 3.5-5.1 cglg=713) CHLORIDE (BEAKER) (test 106 meq/L 98-107 lyow=458) CO2 (BEAKER) (test 21 meq/L 22-29 ocaf=305) BLOOD UREA NITROGEN 54 mg/dL 7-21 (BEAKER) (test zdga=880) CREATININE (BEAKER) (test 3.08 mg/dL 0.57-1.25 bncp=034) GLUCOSE RANDOM (BEAKER) 116 mg/dL 70-105 (test thym=632) CALCIUM (BEAKER) (test 8.1 mg/dL 8.4-10.2 ntzs=547) EGFR (BEAKER) (test 15 mL/min/1.73 sq m ESTIMATED GFR IS NOT nkvk=5025) ACCURATE CREATININE CLEARANCE IN PREDICTING GLOMERULAR FILTRATION RATE. ESTIMATED GFR IS NOT APPLICABLE FOR DIALYSIS PATIENTS. POCT-GLUCOSE [id number] 12:53:00 Test Item Value Reference Range Comments POC-GLUCOSE METER (BEAKER) 118 mg/dL 70-110 TESTED AT [address] (test gvvo=1422) [facility] [address] BLOOD GAS, [id number] 10:42:00 Test Item Value Reference Range Comments PH ARTERIAL (BEAKER) (test lfyp=648) 7.40 7.35-7.45 PCO2 ARTERIAL (BEAKER) (test ldgs=884) 38 mmHg 35-45 PO2 ARTERIAL (BEAKER) (test zixz=638) 78 mmHg 80-90 O2 SATURATION ARTERIAL (BEAKER) (test pgfx=272) 95.6 % 96.0-97.0 HCO3 ARTERIAL (BEAKER) (test xnhl=558) 23 mmol/L 21-29 BASE EXCESS ARTERIAL (BEAKER) (test dsmz=219) -1.4 mmol/L -2.0-3.0 PATIENT TEMPERATURE (BEAKER) (test kapc=8002) 36.9 C FIO2 (BEAKER) (test lbcq=4048) 40.0 % POCT-GLUCOSE [id number] 06:46:00 Test Item Value Reference Range Comments POC-GLUCOSE METER (BEAKER) 106 mg/dL 70-110 TESTED AT [facility] [address] [place] [address] (test fnmo=5068) [facility] [address] RAD, CHEST, 1 VIEW, NON [id number] 05:05:00while patient is intubated or has chest tubes.Reason for exam:->chest tubesShould this be performed at the bedside?->YesFINAL REPORT RAD, CHEST, 1 VIEW, NON DEPT INDICATION: chest tubes COMPARISON:Prior day's exam FINDINGS: Portable frontal view of the chest. IMPRESSION: Support Lines: Stable.Lungs and pleura : No new consolidation. Persistent small volume right effusion. No pneumothorax.Heart and mediastinum: Stable contours. Sternotomy wires are intact. Prominence of the right superior mediastinum is stable from the preoperative exam.Additional findings: None. Signed: JR Boswell Robert MDReport Verified Date/Time: 05/22/2017 05:05:00 Reading Location: [facility] C013Y CT Body ReadingRoom BASIC METABOLIC [id number] 05:00:00 Test Item Value Reference Range Comments SODIUM (BEAKER) (test 138 meq/L 136-145 dahp=157) POTASSIUM (BEAKER) (test 4.5 meq/L 3.5-5.1 jbil=214) CHLORIDE (BEAKER) (test 107 meq/L 98-107 diqq=514) CO2 (BEAKER) (test 21 meq/L 22-29 qjio=347) BLOOD UREA NITROGEN 53 mg/dL 7-21 (BEAKER) (test qsgf=534) CREATININE (BEAKER) (test 3.23 mg/dL 0.57-1.25 wobz=908) GLUCOSE RANDOM (BEAKER) 126 mg/dL 70-105 (test gaea=112) CALCIUM (BEAKER) (test 8.1 mg/dL 8.4-10.2 hupr=115) EGFR (BEAKER) (test 15 mL/min/1.73 sq m ESTIMATED GFR IS NOT esnm=1144) ACCURATE CREATININE CLEARANCE IN PREDICTING GLOMERULAR FILTRATION RATE. ESTIMATED GFR IS NOT APPLICABLE FOR DIALYSIS PATIENTS. [id number] 04:41:00 Test Item Value Reference Range Comments PHOSPHORUS (BEAKER) (test okjl=223) 6.4 mg/dL 2.3-4.7 [id number] 04:41:00 Test Item Value Reference Range Comments MAGNESIUM (BEAKER) (test gizj=061) 2.6 mg/dL 1.6-2.6 CALCIUM, [id number] 04:26:00 Test Item Value Reference Range Comments CALCIUM IONIZED (BEAKER) (test bbba=436) 1.09 mmol/L 1.12-1.27 PH, BLOOD (BEAKER) (test qzzc=7458) 7.40 OXYGEN SATURATION, [id number] 04:25:00 Test Item Value Reference Range Comments O2 SATURATION (MEASURED) (BEAKER) (test bvye=8057) 77.0 % CBC W/PLT COUNT & AUTO [id number] 04:17:00 Test Item Value Reference Range Comments WHITE BLOOD CELL COUNT (BEAKER) (test mgnh=217) 8.9 K/ L 3.5-10.5 RED BLOOD CELL COUNT (BEAKER) (test erqs=305) 3.14 M/ L 3.93-5.22 HEMOGLOBIN (BEAKER) (test rrzo=113) 8.1 GM/DL 11.2-15.7 HEMATOCRIT (BEAKER) (test ltms=783) 26.1 % 34.1-44.9 MEAN CORPUSCULAR VOLUME (BEAKER) (test rfpa=898) 83.1 fL 79.4-94.8 MEAN CORPUSCULAR HEMOGLOBIN (BEAKER) (test 25.8 pg 25.6-32.2 wyfl=786) MEAN CORPUSCULAR HEMOGLOBIN CONC (BEAKER) (test 31.0 GM/DL 32.2-35.5 sjdd=544) RED CELL DISTRIBUTION WIDTH (BEAKER) (test 15.3 % 11.7-14.4 orce=125) PLATELET COUNT (BEAKER) (test petg=927) 156 K/CU MM 150-450 MEAN PLATELET VOLUME (BEAKER) (test iqks=472) 10.2 fL 9.4-12.3 NUCLEATED RED BLOOD CELLS (BEAKER) (test 0 /100 WBC 0-0 nuxr=602) NEUTROPHILS RELATIVE PERCENT (BEAKER) (test 68 % hkyd=006) LYMPHOCYTES RELATIVE PERCENT (BEAKER) (test 22 % lufl=649) MONOCYTES RELATIVE PERCENT (BEAKER) (test 8 % oidw=056) EOSINOPHILS RELATIVE PERCENT (BEAKER) (test 1 % ozvc=354) BASOPHILS RELATIVE PERCENT (BEAKER) (test 1 % xggb=559) NEUTROPHILS ABSOLUTE COUNT (BEAKER) (test 6.05 K/ L 1.56-6.13 pmuo=958) LYMPHOCYTES ABSOLUTE COUNT (BEAKER) (test 1.91 K/ L 1.18-3.74 tstl=510) MONOCYTES ABSOLUTE COUNT (BEAKER) (test 0.74 K/ L 0.24-0.36 suxb=976) EOSINOPHILS ABSOLUTE COUNT (BEAKER) (test 0.08 K/ L 0.04-0.36 dkzn=622) BASOPHILS ABSOLUTE COUNT (BEAKER) (test 0.05 K/ L 0.01-0.08 qddi=268) IMMATURE GRANULOCYTES-RELATIVE PERCENT (BEAKER) 0 % 0-1 (test ayim=6370) LACTIC ACID, ARTERIAL, WHOLE [id number] 00:07:00 Test Item Value Reference Range Comments LACTATE BLOOD ARTERIAL (2) 1.0 mmol/L 0.5-2.2 Specimen slightly hemolyzed (BEAKER) (test vucw=7725) Effective 08/02/2015: Units/Reference Range ChangeNew: 0.5-2.2 mmol/L Previous: 5 -20 mg/dLPOCT-GLUCOSE [id number] 23:47:00 Test Item Value Reference Range Comments POC-GLUCOSE METER (BEAKER) 180 mg/dL 70-110 TESTED AT [facility] [address] [facility] (test okne=3184) [facility] [address] BLOOD GAS, [id number] 23:46:00 Test Item Value Reference Range Comments PH ARTERIAL (BEAKER) (test pbgx=686) 7.40 7.35-7.45 PCO2 ARTERIAL (BEAKER) (test emfx=639) 37 mmHg 35-45 PO2 ARTERIAL (BEAKER) (test dhnx=012) 136 mmHg 80-90 O2 SATURATION ARTERIAL (BEAKER) (test irqd=718) 98.7 % 96.0-97.0 HCO3 ARTERIAL (BEAKER) (test iwum=935) 22 mmol/L 21-29 BASE EXCESS ARTERIAL (BEAKER) (test vkar=913) -2.4 mmol/L -2.0-3.0 PATIENT TEMPERATURE (BEAKER) (test wmxp=5023) 37.0 C FIO2 (BEAKER) (test edkc=4232) 100.0 % SODIUM NA-STAT [id number] 23:46:00 Test Item Value Reference Range Comments SODIUM (BEAKER) (test jigm=181) 134 meq/L 135-148 GLUCOSE-STAT [id number] 23:46:00 Test Item Value Reference Range Comments GLUCOSE RANDOM (BEAKER) (test hnap=994) 119 mg/dL 70-110 HGB/HCT (H&H) - STAT [id number] 23:46:00 Test Item Value Reference Range Comments HEMOGLOBIN (BEAKER) (test rptb=061) 8.8 g/dL 12.0-15.0 HEMATOCRIT (BEAKER) (test ovtu=016) 26.0 % 36.0-45.0 OXYGEN SATURATION, [id number] 23:45:00 Test Item Value Reference Range Comments O2 SATURATION (MEASURED) (BEAKER) (test qina=2980) 68.1 % POTASSIUM-STAT [id number] 23:45:00 Test Item Value Reference Range Comments POTASSIUM (BEAKER) (test ugnq=301) 5.5 meq/L 3.6-5.5 POCT-GLUCOSE [id number] 20:58:00 Test Item Value Reference Range Comments POC-GLUCOSE METER (BEAKER) 133 mg/dL 70-110 TESTED AT [address] (test qyav=6971) [facility] [address] POCT-GLUCOSE [id number] 17:58:00 Test Item Value Reference Range Comments POC-GLUCOSE METER (BEAKER) 210 mg/dL 70-110 TESTED AT [address] (test aeyx=7363) [facility] [address] POCT-GLUCOSE [id number] 17:58:00 Test Item Value Reference Range Comments POC-GLUCOSE METER (BEAKER) 211 mg/dL 70-110 TESTED AT [address] (test bulp=3307) [facility] [address] POCT-GLUCOSE [id number] 17:58:00 Test Item Value Reference Range Comments POC-GLUCOSE METER (BEAKER) 232 mg/dL 70-110 TESTED AT [address] (test sbpt=4879) [place] [id number] POCT-GLUCOSE [id number] 17:58:00 Test Item Value Reference Range Comments POC-GLUCOSE METER (BEAKER) 262 mg/dL 70-110 TESTED AT [address] (test srbp=1938) [place] [id number] BLOOD GAS, [id number] 17:01:00 Test Item Value Reference Range Comments PH ARTERIAL (BEAKER) (test erho=208) 7.38 7.35-7.45 PCO2 ARTERIAL (BEAKER) (test wrdo=520) 39 mmHg 35-45 PO2 ARTERIAL (BEAKER) (test iuky=531) 75 mmHg 80-90 O2 SATURATION ARTERIAL (BEAKER) (test jliw=322) 94.9 % 96.0-97.0 HCO3 ARTERIAL (BEAKER) (test xhnz=686) 23 mmol/L 21-29 BASE EXCESS ARTERIAL (BEAKER) (test tutz=146) -2.5 mmol/L -2.0-3.0 PATIENT TEMPERATURE (BEAKER) (test jwop=5278) 36.8 C FIO2 (BEAKER) (test djtp=4554) 60.0 % POTASSIUM-STAT [id number] 17:00:00 Test Item Value Reference Range Comments POTASSIUM (BEAKER) (test wulv=276) 4.8 meq/L 3.6-5.5 POCT-GLUCOSE [id number] 15:52:00 Test Item Value Reference Range Comments POC-GLUCOSE METER (BEAKER) 267 mg/dL 70-110 TESTED AT [address] (test whxo=0695) [place] [id number] POCT-GLUCOSE [id number] 14:42:00 Test Item Value Reference Range Comments POC-GLUCOSE METER (BEAKER) 231 mg/dL 70-110 TESTED AT [address] (test bjpw=6577) [place] [id number] BODY FLUID CELL COUNT WITH [id number] 14:41:00 Test Item Value Reference Range Comments APPEARANCE FLUID (BEAKER) (test yiee=121) Turbid Clear COLOR FLUID (BEAKER) (test jpbi=317) Colorless Colorless, Straw RBC FLUID (BEAKER) (test hthv=796) 2000 /cu mm <=1 ADJUSTED WBC FLUID (BEAKER) (test lqlw=5534) 1489 /cu mm <=5 LINING CELLS (BEAKER) (test vwad=3601) 119 /cu mm <=1 NEUTROPHILS FLUID (BEAKER) (test ammm=3356) 40 % LYMPHS FLUID (BEAKER) (test oduu=324) 34 % MONO/MACROPHAGE FLUID (BEAKER) (test ukrz=086) 26 % EOSINOPHILS FLUID (BEAKER) (test mded=287) 0 % BASO FLUID (BEAKER) (test geyw=127) 0 % CONTAINER BODY FLUID (BEAKER) (test cesa=4704) EDTA Tube BASIC METABOLIC [id number] 14:11:00 Test Item Value Reference Range Comments SODIUM (BEAKER) (test 137 meq/L 136-145 zenr=024) POTASSIUM (BEAKER) (test 5.6 meq/L 3.5-5.1 hkci=067) CHLORIDE (BEAKER) (test 106 meq/L 98-107 mahp=824) CO2 (BEAKER) (test 20 meq/L 22-29 iodm=263) BLOOD UREA NITROGEN 48 mg/dL 7-21 (BEAKER) (test ybpj=362) CREATININE (BEAKER) (test 2.50 mg/dL 0.57-1.25 korl=983) GLUCOSE RANDOM (BEAKER) 221 mg/dL 70-105 (test pyel=013) CALCIUM (BEAKER) (test 8.1 mg/dL 8.4-10.2 edee=970) EGFR (BEAKER) (test 20 mL/min/1.73 sq m ESTIMATED GFR IS NOT adxf=1706) ACCURATE CREATININE CLEARANCE IN PREDICTING GLOMERULAR FILTRATION RATE. ESTIMATED GFR IS NOT APPLICABLE FOR DIALYSIS PATIENTS. [id number] 14:08:00 Test Item Value Reference Range Comments PHOSPHORUS (BEAKER) (test wfqv=693) 7.2 mg/dL 2.3-4.7 [id number] 14:08:00 Test Item Value Reference Range Comments MAGNESIUM (BEAKER) (test nqtj=442) 2.6 mg/dL 1.6-2.6 POCT-GLUCOSE [id number] 12:49:00 Test Item Value Reference Range Comments POC-GLUCOSE METER (BEAKER) 224 mg/dL 70-110 TESTED AT [facility] [address] [facility] (test bgjw=8964) [facility] [facility] [address] POCT-GLUCOSE [id number] 12:49:00 Test Item Value Reference Range Comments POC-GLUCOSE METER (BEAKER) 248 mg/dL 70-110 TESTED AT [place] [id number] [facility] (test shuh=9614) [facility] [address] RAD, CHEST, 1 VIEW, NON [id number] 12:32:00Reason for exam:->re- intubationShould this be performed at the bedside?->YesFINAL REPORT Chest one view INDICATION: Re-intubation COMPARISON: 05/21/2017 at 0459 IMPRESSION: ET tube terminates 3.8 cm above the shiva. NG tube has been removed. The remaining support devices are stable. Median sternotomy changes are noted. The cardiac silhouette is enlarged. Mediastinal prominence is decreased. Pulmonary edema appears stable. Dependent pleural effusions are present with basilar airspace disease, atelectasis versus pneumonitis. A minimal left pneumothorax is grossly unchanged. Signed: Magdalena White MDReport Verified Date/Time: 05/21/2017 12:32:08 Reading Location: [facility] Radiology Reading Room POTASSIUM-STAT [id number] 12:28:00 Test Item Value Reference Range Comments POTASSIUM (BEAKER) (test uewh=926) 5.5 meq/L 3.6-5.5 BLOOD GAS, [id number] 12:28:00 Test Item Value Reference Range Comments PH ARTERIAL (BEAKER) (test fqnv=300) 7.32 7.35-7.45 PCO2 ARTERIAL (BEAKER) (test ktwy=375) 45 mmHg 35-45 PO2 ARTERIAL (BEAKER) (test avjm=264) 304 mmHg 80-90 O2 SATURATION ARTERIAL (BEAKER) (test orho=792) 99.7 % 96.0-97.0 HCO3 ARTERIAL (BEAKER) (test xlhq=979) 22 mmol/L 21-29 BASE EXCESS ARTERIAL (BEAKER) (test mzai=258) -3.7 mmol/L -2.0-3.0 PATIENT TEMPERATURE (BEAKER) (test tjzs=5497) 37.0 C FIO2 (BEAKER) (test oeiv=8397) 100.0 % BLOOD GAS, [id number] 10:53:00 Test Item Value Reference Range Comments PH ARTERIAL (BEAKER) (test fqgh=570) 7.36 7.35-7.45 PCO2 ARTERIAL (BEAKER) (test uaoq=896) 35 mmHg 35-45 PO2 ARTERIAL (BEAKER) (test ckjr=084) 40 mmHg 80-90 O2 SATURATION ARTERIAL (BEAKER) (test udno=876) 82.3 % 96.0-97.0 HCO3 ARTERIAL (BEAKER) (test fnvb=689) 20 mmol/L 21-29 BASE EXCESS ARTERIAL (BEAKER) (test mhzx=244) -5.9 mmol/L -2.0-3.0 PATIENT TEMPERATURE (BEAKER) (test hafr=3833) 33.7 C FIO2 (BEAKER) (test hcka=7794) 36.0 % RAD, CHEST, 1 VIEW, NON [id number] 08:46:00while patient is intubated or has chest tubes.Reason for exam:->chest tubesShould this be performed at the bedside?->YesFINAL REPORT Chest one view INDICATION: Chest tubes COMPARISON: 05/20/2017 IMPRESSION: The NG tube side-port overlies the lower esophagus. Consider positioning. The remaining support devices are stable. Median sternotomy changes are noted. The cardiac silhouette is enlarged. Aortic ectasia/tortuosity is exaggerated by obliquity. Pulmonary edema appears minimally increased. Dependent pleural effusions are present with basilar airspace disease, atelectasis versus pneumonitis. A minimal left apical pneumothorax is suspected. Signed: Magdalena Whiteort Verified Date/ Time: 05/21/2017 08:46:27 Reading Location: [facility] Radiology Reading Room BLOOD GAS, [id number] 05:41:00 Test Item Value Reference Range Comments PH ARTERIAL (BEAKER) (test smhm=089) 7.33 7.35-7.45 PCO2 ARTERIAL (BEAKER) (test tpqb=170) 40 mm Hg 35-45 PO2 ARTERIAL (BEAKER) (test knrw=428) 106 mm Hg 80-90 O2 SATURATION ARTERIAL (BEAKER) (test wizq=681) 97.5 % 96.0-97.0 HCO3 ARTERIAL (BEAKER) (test xmub=122) 21 mmol/L 21-29 BASE EXCESS ARTERIAL (BEAKER) (test mvhw=925) -5.1 mmol/L -2.0-3.0 PATIENT TEMPERATURE (BEAKER) (test zhsl=8225) 37.0 FIO2 (BEAKER) (test nifb=7843) 40 CALCIUM, [id number] 04:35:00 Test Item Value Reference Range Comments CALCIUM IONIZED (BEAKER) (test vhib=600) 1.13 mmol/L 1.12-1.27 PH, BLOOD (BEAKER) (test vrtj=4318) 7.32 BLOOD GAS, [id number] 04:28:00 Test Item Value Reference Range Comments PH ARTERIAL (BEAKER) (test orqq=429) 7.32 7.35-7.45 PCO2 ARTERIAL (BEAKER) (test wruf=942) 40 mmHg 35-45 PO2 ARTERIAL (BEAKER) (test vujg=583) 100 mmHg 80-90 O2 SATURATION ARTERIAL (BEAKER) (test raum=965) 97.2 % 96.0-97.0 HCO3 ARTERIAL (BEAKER) (test xmex=646) 20 mmol/L 21-29 BASE EXCESS ARTERIAL (BEAKER) (test huuu=173) -5.7 mmol/L -2.0-3.0 PATIENT TEMPERATURE (BEAKER) (test kdvg=7354) 36.9 C FIO2 (BEAKER) (test cxlr=5062) 40.0 % [id number] 04:20:00 Test Item Value Reference Range Comments PHOSPHORUS (BEAKER) (test itmf=596) 6.2 mg/dL 2.3-4.7 [id number] 04:20:00 Test Item Value Reference Range Comments MAGNESIUM (BEAKER) (test szsm=592) 2.4 mg/dL 1.6-2.6 HEPATIC FUNCTION [id number] 04:20:00 Test Item Value Reference Range Comments TOTAL PROTEIN (BEAKER) (test qeex=714) 4.8 gm/dL 6.0-8.3 ALBUMIN (BEAKER) (test ndav=0013) 2.5 g/dL 3.5-5.0 BILIRUBIN TOTAL (BEAKER) (test cnfr=464) 0.7 mg/dL 0.2-1.2 BILIRUBIN DIRECT (BEAKER) (test muvu=636) 0.3 mg/dL 0.1-0.5 ALKALINE PHOSPHATASE (BEAKER) (test vwim=192) 96 U/L 40-150 AST (SGOT) (BEAKER) (test bbsl=544) 31 U/L 5-34 ALT (SGPT) (BEAKER) (test knsw=095) 11 U/L 6-55 BASIC METABOLIC [id number] 04:20:00 Test Item Value Reference Range Comments SODIUM (BEAKER) (test 134 meq/L 136-145 qlxi=837) POTASSIUM (BEAKER) (test 5.0 meq/L 3.5-5.1 owsr=637) CHLORIDE (BEAKER) (test 105 meq/L 98-107 awej=671) CO2 (BEAKER) (test 18 meq/L 22-29 vnms=879) BLOOD UREA NITROGEN 45 mg/dL 7-21 (BEAKER) (test elut=893) CREATININE (BEAKER) (test 1.91 mg/dL 0.57-1.25 inet=177) GLUCOSE RANDOM (BEAKER) 247 mg/dL 70-105 (test ujys=278) CALCIUM (BEAKER) (test 7.9 mg/dL 8.4-10.2 nhwt=894) EGFR (BEAKER) (test 27 mL/min/1.73 sq m ESTIMATED GFR IS NOT xxzh=9468) ACCURATE CREATININE CLEARANCE IN PREDICTING GLOMERULAR FILTRATION RATE. ESTIMATED GFR IS NOT APPLICABLE FOR DIALYSIS PATIENTS. OXYGEN SATURATION, [id number] 04:18:00 Test Item Value Reference Range Comments O2 SATURATION (MEASURED) (BEAKER) (test fpiu=1367) 68.0 % LACTIC ACID, ARTERIAL, WHOLE [id number] 04:12:00 Test Item Value Reference Range Comments LACTATE BLOOD ARTERIAL (2) (BEAKER) (test 1.0 mmol/L 0.5-2.2 bbdu=9862) Effective 08/02/2015: Units/Reference Range ChangeNew: 0.5-2.2 mmol/L Previous: 5 -20 mg/dLCBC W/PLT COUNT & AUTO [id number] 04:00:00 Test Item Value Reference Range Comments WHITE BLOOD CELL COUNT (BEAKER) (test twhu=069) 12.0 K/ L 3.5-10.5 RED BLOOD CELL COUNT (BEAKER) (test gtne=578) 3.32 M/ L 3.93-5.22 HEMOGLOBIN (BEAKER) (test sbcl=788) 8.8 GM/DL 11.2-15.7 HEMATOCRIT (BEAKER) (test xrsk=162) 28.3 % 34.1-44.9 MEAN CORPUSCULAR VOLUME (BEAKER) (test wohy=705) 85.2 fL 79.4-94.8 MEAN CORPUSCULAR HEMOGLOBIN (BEAKER) (test 26.5 pg 25.6-32.2 uaej=616) MEAN CORPUSCULAR HEMOGLOBIN CONC (BEAKER) (test 31.1 GM/DL 32.2-35.5 esls=200) RED CELL DISTRIBUTION WIDTH (BEAKER) (test 15.0 % 11.7-14.4 mxgr=227) PLATELET COUNT (BEAKER) (test oyfz=478) 157 K/CU MM 150-450 MEAN PLATELET VOLUME (BEAKER) (test cdgx=592) 10.7 fL 9.4-12.3 NUCLEATED RED BLOOD CELLS (BEAKER) (test 0 /100 WBC 0-0 icbz=224) NEUTROPHILS RELATIVE PERCENT (BEAKER) (test 91 % ihui=437) LYMPHOCYTES RELATIVE PERCENT (BEAKER) (test 4 % oryf=917) MONOCYTES RELATIVE PERCENT (BEAKER) (test 4 % csho=855) EOSINOPHILS RELATIVE PERCENT (BEAKER) (test 0 % fdzw=129) BASOPHILS RELATIVE PERCENT (BEAKER) (test 0 % mknx=761) NEUTROPHILS ABSOLUTE COUNT (BEAKER) (test 10.95 K/ L 1.56-6.13 jnvg=952) LYMPHOCYTES ABSOLUTE COUNT (BEAKER) (test 0.52 K/ L 1.18-3.74 xmal=046) MONOCYTES ABSOLUTE COUNT (BEAKER) (test 0.42 K/ L 0.24-0.36 wjhu=355) EOSINOPHILS ABSOLUTE COUNT (BEAKER) (test 0.01 K/ L 0.04-0.36 thdt=850) BASOPHILS ABSOLUTE COUNT (BEAKER) (test 0.05 K/ L 0.01-0.08 wgtp=616) IMMATURE GRANULOCYTES-RELATIVE PERCENT (BEAKER) 0 % 0-1 (test oroa=3917) BLOOD GAS, [id number] 00:06:00 Test Item Value Reference Range Comments PH ARTERIAL (BEAKER) (test xqjq=802) 7.26 7.35-7.45 PCO2 ARTERIAL (BEAKER) (test bppr=820) 52 mmHg 35-45 PO2 ARTERIAL (BEAKER) (test tigp=474) 88 mmHg 80-90 O2 SATURATION ARTERIAL (BEAKER) (test uync=460) 95.7 % 96.0-97.0 HCO3 ARTERIAL (BEAKER) (test bpkx=718) 23 mmol/L 21-29 BASE EXCESS ARTERIAL (BEAKER) (test vsnt=307) -4.0 mmol/L -2.0-3.0 PATIENT TEMPERATURE (BEAKER) (test jufn=3071) 36.4 C FIO2 (BEAKER) (test cavy=4192) 40.0 % [id number] 18:55:00 Test Item Value Reference Range Comments PHOSPHORUS (BEAKER) (test qpcl=273) 4.8 mg/dL 2.3-4.7 [id number] 18:55:00 Test Item Value Reference Range Comments MAGNESIUM (BEAKER) (test zugz=908) 2.3 mg/dL 1.6-2.6 BASIC METABOLIC [id number] 18:55:00 Test Item Value Reference Range Comments SODIUM (BEAKER) (test 136 meq/L 136-145 qcnw=602) POTASSIUM (BEAKER) (test 4.5 meq/L 3.5-5.1 gwmn=277) CHLORIDE (BEAKER) (test 108 meq/L 98-107 snlh=474) CO2 (BEAKER) (test 21 meq/L 22-29 owrt=806) BLOOD UREA NITROGEN 39 mg/dL 7-21 (BEAKER) (test yzyf=006) CREATININE (BEAKER) (test 1.58 mg/dL 0.57-1.25 lnlz=589) GLUCOSE RANDOM (BEAKER) 172 mg/dL 70-105 (test ljpl=698) CALCIUM (BEAKER) (test 7.9 mg/dL 8.4-10.2 jbef=921) EGFR (BEAKER) (test 33 mL/min/1.73 sq m ESTIMATED GFR IS NOT dueb=4181) ACCURATE CREATININE CLEARANCE IN PREDICTING GLOMERULAR FILTRATION RATE. ESTIMATED GFR IS NOT APPLICABLE FOR DIALYSIS PATIENTS. LACTIC ACID, ARTERIAL, WHOLE [id number] 18:53:00 Test Item Value Reference Range Comments LACTATE BLOOD ARTERIAL (2) 0.9 mmol/L 0.5-2.2 Specimen slightly hemolyzed (BEAKER) (test xfwv=4970) Effective 08/02/2015: Units/Reference Range ChangeNew: 0.5-2.2 mmol/L Previous: 5 -20 mg/dLRAD, CHEST, 1 VIEW, NON [id number] 18:44:00Reason for exam:-> postop cardiacShould this be performed at the bedside?->YesFINAL REPORT HISTORY : postop cardiac. Comparison: 05/19/2017 Comment: Single portable view of the chest was obtained. The correct silhouette size is enlarged. Endotracheal tube is in place in good position above the shiva. Nasogastric tube is seen with the tip not included in the film. The side port, however, is seen at the level of the distal esophagus/gastroesophageal junction. Bilateral chest/mediastinal drains are present. Right sided internal jugular venous catheter isin place with the tip projecting over the superior vena cava. No pneumothorax is seen. There are small bilateral pleural effusions with some adjacent consolidation that may represent atelectasis. Pneumonitis cannot be excluded. Signed: Lisa Li MDReport Verified Date/Time: 2017 18:44:30 Reading Location: [facility] C0[facility] Consult Reading Room Electronically signed by: LISA LI M.D. on05/20/2017 06:44 PMCBC W/PLT COUNT & AUTO [id number] 18:38:00 Test Item Value Reference Range Comments WHITE BLOOD CELL COUNT (BEAKER) (test oees=494) 8.7 K/ L 3.5-10.5 RED BLOOD CELL COUNT (BEAKER) (test qxmj=750) 3.33 M/ L 3.93-5.22 HEMOGLOBIN (BEAKER) (test cnaf=562) 8.7 GM/DL 11.2-15.7 HEMATOCRIT (BEAKER) (test xsdm=625) 27.9 % 34.1-44.9 MEAN CORPUSCULAR VOLUME (BEAKER) (test ofkd=828) 83.8 fL 79.4-94.8 MEAN CORPUSCULAR HEMOGLOBIN (BEAKER) (test 26.1 pg 25.6-32.2 lvqv=573) MEAN CORPUSCULAR HEMOGLOBIN CONC (BEAKER) (test 31.2 GM/DL 32.2-35.5 gaup=345) RED CELL DISTRIBUTION WIDTH (BEAKER) (test 14.9 % 11.7-14.4 puoz=645) PLATELET COUNT (BEAKER) (test cpax=957) 137 K/CU MM 150-450 MEAN PLATELET VOLUME (BEAKER) (test shoc=443) 10.2 fL 9.4-12.3 NUCLEATED RED BLOOD CELLS (BEAKER) (test 0 /100 WBC 0-0 lbfe=985) NEUTROPHILS RELATIVE PERCENT (BEAKER) (test 79 % wyzy=674) LYMPHOCYTES RELATIVE PERCENT (BEAKER) (test 12 % lsuw=782) MONOCYTES RELATIVE PERCENT (BEAKER) (test 7 % sgcq=735) EOSINOPHILS RELATIVE PERCENT (BEAKER) (test 1 % qofi=083) BASOPHILS RELATIVE PERCENT (BEAKER) (test 1 % tzen=008) NEUTROPHILS ABSOLUTE COUNT (BEAKER) (test 6.83 K/ L 1.56-6.13 kidw=813) LYMPHOCYTES ABSOLUTE COUNT (BEAKER) (test 1.06 K/ L 1.18-3.74 abtl=967) MONOCYTES ABSOLUTE COUNT (BEAKER) (test 0.56 K/ L 0.24-0.36 krii=279) EOSINOPHILS ABSOLUTE COUNT (BEAKER) (test 0.12 K/ L 0.04-0.36 wjgm=147) BASOPHILS ABSOLUTE COUNT (BEAKER) (test 0.04 K/ L 0.01-0.08 vxlx=744) IMMATURE GRANULOCYTES-RELATIVE PERCENT (BEAKER) 1 % 0-1 (test xrep=5923) OXYGEN SATURATION, [id number] 18:36:00 Test Item Value Reference Range Comments O2 SATURATION (MEASURED) (BEAKER) (test ggih=2400) 72.5 % From distal port of IJ central venous catheterSODIUM NA-STAT [id number] 18:30 :00 Test Item Value Reference Range Comments SODIUM (BEAKER) (test hwkk=213) 132 meq/L 135-148 HGB/HCT (H&H) - STAT [id number] 18:30:00 Test Item Value Reference Range Comments HEMOGLOBIN (BEAKER) (test lroi=581) 9.4 g/dL 12.0-15.0 HEMATOCRIT (BEAKER) (test jlus=564) 28.0 % 36.0-45.0 GLUCOSE-STAT [id number] 18:30:00 Test Item Value Reference Range Comments GLUCOSE RANDOM (BEAKER) (test cqfw=359) 159 mg/dL 70-110 BLOOD GAS, [id number] 18:30:00 Test Item Value Reference Range Comments PH ARTERIAL (BEAKER) (test zsvk=945) 7.34 7.35-7.45 PCO2 ARTERIAL (BEAKER) (test ibtp=672) 43 mmHg 35-45 PO2 ARTERIAL (BEAKER) (test qsfw=402) 76 mmHg 80-90 O2 SATURATION ARTERIAL (BEAKER) (test gcsa=100) 94.9 % 96.0-97.0 HCO3 ARTERIAL (BEAKER) (test jxig=182) 23 mmol/L 21-29 BASE EXCESS ARTERIAL (BEAKER) (test cfra=363) -2.6 mmol/L -2.0-3.0 PATIENT TEMPERATURE (BEAKER) (test tvdm=9079) 36.4 C FIO2 (BEAKER) (test aqfv=4348) 60.0 % CALCIUM, [id number] 18:30:00 Test Item Value Reference Range Comments CALCIUM IONIZED (BEAKER) (test pret=134) 0.94 mmol/L 1.12-1.27 PH, BLOOD (BEAKER) (test plvk=2007) 7.34 POTASSIUM-STAT [id number] 18:28:00 Test Item Value Reference Range Comments POTASSIUM (BEAKER) (test twmy=142) 4.4 meq/L 3.6-5.5 THROMBOELASTOGRAPH ([id number])[id number] 18:11:00 Test Item Value Reference Range Comments TEG ACTIVATED CLOTTING TIME (BEAKER) (test 6.7 minutes 4.0-7.0 owhw=6718) TEG FIBRINOGEN ACTIVITY (BEAKER) (test 66.6 degrees 61.0-73.0 pcxp=7915) TEG PLT. AGGREGATION (BEAKER) (test xfgr=4899) 62.4 MM 55.0-65.0 TEG FIBRINOLYSIS (BEAKER) (test uica=6526) 0.0 % 0.0-5.0 TGH ACTIVATED CLOTTING TIME (BEAKER) (test 6.7 minutes 4.0-7.0 jtrq=4135) TGH FIBRINOGEN ACTIVITY (BEAKER) (test 69.0 degrees 61.0-73.0 ylgo=4193) TGH PLT. AGGREGATION (BEAKER) (test unhe=1699) 62.8 MM 55.0-65.0 TGH FIBRINOLYSIS (BEAKER) (test wnud=3566) 0.0 % 0.0-5.0 [id number] 17:53:00 Test Item Value Reference Range Comments ACTIVATED CLOTTING TIME 103 sec TESTED AT [place] [address] [address] (BEAKER) (test yfci=810) [place] [address] [id number] 17:53:00 Test Item Value Reference Range Comments ACTIVATED CLOTTING TIME 466 sec TESTED AT [place] [address] [address] (BEAKER) (test zhny=672) [place] [address] [id number] 17:53:00 Test Item Value Reference Range Comments ACTIVATED CLOTTING TIME 543 sec TESTED AT [place] [address] [address] (BEAKER) (test clpk=367) [place] [address] [id number] 17:53:00 Test Item Value Reference Range Comments ACTIVATED CLOTTING TIME 549 sec TESTED AT [place] [id number] [place] (BEAKER) (test xsnr=802) [place] [address] [id number] 17:53:00 Test Item Value Reference Range Comments ACTIVATED CLOTTING TIME 632 sec TESTED AT [place] [address] [address] (BEAKER) (test ttsg=485) [place] [address] [id number] 17:53:00 Test Item Value Reference Range Comments ACTIVATED CLOTTING TIME 494 sec TESTED AT [place] [address] [address] (BEAKER) (test wmeg=937) [place] [address] [id number] 17:53:00 Test Item Value Reference Range Comments ACTIVATED CLOTTING TIME 587 sec TESTED AT [facility] [address] [address] (BEAKER) (test jiha=360) [place] [address] [id number] 17:53:00 Test Item Value Reference Range Comments ACTIVATED CLOTTING TIME 626 sec TESTED AT [place] [address] [facility] (test wooh=301) [place] [address] [id number] 17:52:00 Test Item Value Reference Range Comments ACTIVATED CLOTTING TIME 808 sec TESTED AT [place] [address] [facility] (test klvy=815) [place] [address] [id number] 16:54:00 Test Item Value Reference Range Comments PARTIAL THROMBOPLASTIN TIME (AKER) (test 40.2 seconds 22.5-36.0 jchi=341) [id number] 16:53:00 Test Item Value Reference Range Comments FIBRINOGEN LEVEL (BANNER) (test koqq=086) 306 mg/dl 225-434 PROTHROMBIN [id number] 16:50:00 Test Item Value Reference Range Comments PROTIME (BEAKER) (test kdco=572) 19.6 seconds 11.7-14.7 INR (BANNER) (test gpnh=070) 1.7 <=5.9 RECOMMENDED COUMADIN/WARFARIN INR THERAPY RANGESSTANDARD DOSE: 2.0 - 3.0 Includes: PROPHYLAXIS forvenous thrombosis, systemic embolization; TREATMENT for venous thrombosis and/or pulmonary embolus.HIGH RISK: Target INR is 2.5-3.5 for patients with mechanical heart valves.PLATELET [id number] 16:45:00 Test Item Value Reference Range Comments PLATELET COUNT (BEAKER) (test ghep=046) 136 K/CU MM 150-450 POTASSIUM-STAT [id number] 16:15:00 Test Item Value Reference Range Comments POTASSIUM (BEAKER) (test nokd=887) 4.9 meq/L 3.6-5.5 BLOOD GAS, [id number] 16:15:00 Test Item Value Reference Range Comments PH ARTERIAL (BEAKER) (test spyc=817) 7.39 7.35-7.45 PCO2 ARTERIAL (BEAKER) (test mdyx=984) 42 mmHg 35-45 PO2 ARTERIAL (BEAKER) (test ddzp=723) 201 mmHg 80-90 O2 SATURATION ARTERIAL (BEAKER) (test jkfv=447) 99.4 % 96.0-97.0 HCO3 ARTERIAL (BEAKER) (test ktjk=777) 25 mmol/L 21-29 BASE EXCESS ARTERIAL (BEAKER) (test ftdz=215) -0.3 mmol/L -2.0-3.0 PATIENT TEMPERATURE (BEAKER) (test celt=6194) 36.3 C FIO2 (BEAKER) (test wvae=6439) 100.0 % SODIUM NA-STAT [id number] 16:15:00 Test Item Value Reference Range Comments SODIUM (BEAKER) (test qwnj=476) 131 meq/L 135-148 GLUCOSE-STAT [id number] 16:15:00 Test Item Value Reference Range Comments GLUCOSE RANDOM (BEAKER) (test pkvj=783) 198 mg/dL 70-110 HGB/HCT (H&H) - STAT [id number] 16:15:00 Test Item Value Reference Range Comments HEMOGLOBIN (BEAKER) (test wmzb=957) 7.5 g/dL 12.0-15.0 HEMATOCRIT (BEAKER) (test ytpi=055) 22.0 % 36.0-45.0 CALCIUM, [id number] 16:14:00 Test Item Value Reference Range Comments CALCIUM IONIZED (BEAKER) (test mfpw=034) 0.91 mmol/L 1.12-1.27 PH, BLOOD (BEAKER) (test auke=3396) 7.39 BLOOD GAS, [id number] 15:39:00 Test Item Value Reference Range Comments PH ARTERIAL (BEAKER) (test xhpi=663) 7.44 7.35-7.45 PCO2 ARTERIAL (BEAKER) (test ugym=436) 38 mmHg 35-45 PO2 ARTERIAL (BEAKER) (test geor=718) 298 mmHg 80-90 O2 SATURATION ARTERIAL (BEAKER) (test gyhk=627) 99.7 % 96.0-97.0 HCO3 ARTERIAL (BEAKER) (test mwrz=787) 25 mmol/L 21-29 BASE EXCESS ARTERIAL (BEAKER) (test subc=693) 0.7 mmol/L -2.0-3.0 PATIENT TEMPERATURE (BEAKER) (test vefe=2483) 36.2 C FIO2 (BEAKER) (test gxyl=4428) 70.0 % SODIUM NA-STAT [id number] 15:39:00 Test Item Value Reference Range Comments SODIUM (BEAKER) (test pbve=041) 131 meq/L 135-148 GLUCOSE-STAT [id number] 15:39:00 Test Item Value Reference Range Comments GLUCOSE RANDOM (BEAKER) (test ukhs=404) 186 mg/dL 70-110 HGB/HCT (H&H) - STAT [id number] 15:39:00 Test Item Value Reference Range Comments HEMOGLOBIN (BEAKER) (test jwqv=336) 7.5 g/dL 12.0-15.0 HEMATOCRIT (BEAKER) (test ybwi=935) 22.0 % 36.0-45.0 POTASSIUM-STAT [id number] 15:38:00 Test Item Value Reference Range Comments POTASSIUM (BEAKER) (test qirc=061) 5.3 meq/L 3.6-5.5 BLOOD GAS, [id number] 15:24:00 Test Item Value Reference Range Comments PH ARTERIAL (BEAKER) (test rwci=963) 7.47 7.35-7.45 PCO2 ARTERIAL (BEAKER) (test oixd=102) 37 mmHg 35-45 PO2 ARTERIAL (BEAKER) (test gxxg=162) 334 mmHg 80-90 O2 SATURATION ARTERIAL (BEAKER) (test pknm=910) 99.8 % 96.0-97.0 HCO3 ARTERIAL (BEAKER) (test uqsp=032) 26 mmol/L 21-29 BASE EXCESS ARTERIAL (BEAKER) (test uxti=636) 2.2 mmol/L -2.0-3.0 PATIENT TEMPERATURE (BEAKER) (test tata=0311) 36.2 C FIO2 (BEAKER) (test oxrk=5126) 70.0 % SODIUM NA-STAT [id number] 15:24:00 Test Item Value Reference Range Comments SODIUM (BEAKER) (test xzkv=252) 130 meq/L 135-148 GLUCOSE-STAT [id number] 15:24:00 Test Item Value Reference Range Comments GLUCOSE RANDOM (BEAKER) (test hnep=174) 189 mg/dL 70-110 HGB/HCT (H&H) - STAT [id number] 15:24:00 Test Item Value Reference Range Comments HEMOGLOBIN (BEAKER) (test uyre=565) 6.7 g/dL 12.0-15.0 HEMATOCRIT (BEAKER) (test wjfl=582) 20.0 % 36.0-45.0 POTASSIUM-STAT [id number] 15:23:00 Test Item Value Reference Range Comments POTASSIUM (BEAKER) (test luxx=149) 5.4 meq/L 3.6-5.5 BLOOD GAS, [id number] 15:07:00 Test Item Value Reference Range Comments PH ARTERIAL (BEAKER) (test eyux=126) 7.43 7.35-7.45 PCO2 ARTERIAL (BEAKER) (test hlbm=097) 41 mmHg 35-45 PO2 ARTERIAL (BEAKER) (test rvnq=638) 365 mmHg 80-90 O2 SATURATION ARTERIAL (BEAKER) (test zneh=522) 99.8 % 96.0-97.0 HCO3 ARTERIAL (BEAKER) (test gule=648) 27 mmol/L 21-29 BASE EXCESS ARTERIAL (BEAKER) (test xfxq=964) 1.9 mmol/L -2.0-3.0 PATIENT TEMPERATURE (BEAKER) (test umeh=4390) 35.8 C FIO2 (BEAKER) (test gofp=3869) 70.0 % SODIUM NA-STAT [id number] 15:07:00 Test Item Value Reference Range Comments SODIUM (BEAKER) (test nutz=070) 129 meq/L 135-148 GLUCOSE-STAT [id number] 15:07:00 Test Item Value Reference Range Comments GLUCOSE RANDOM (BEAKER) (test ezwx=825) 172 mg/dL 70-110 HGB/HCT (H&H) - STAT [id number] 15:07:00 Test Item Value Reference Range Comments HEMOGLOBIN (BEAKER) (test hhhf=232) 7.1 g/dL 12.0-15.0 HEMATOCRIT (BEAKER) (test pbmo=127) 21.0 % 36.0-45.0 POTASSIUM-STAT [id number] 15:04:00 Test Item Value Reference Range Comments POTASSIUM (BEAKER) (test bqyf=648) 5.0 meq/L 3.6-5.5 BLOOD GAS, [id number] 14:21:00 Test Item Value Reference Range Comments PH ARTERIAL (BEAKER) (test cilu=363) 7.43 7.35-7.45 PCO2 ARTERIAL (BEAKER) (test hssm=319) 38 mmHg 35-45 PO2 ARTERIAL (BEAKER) (test mwol=913) 360 mmHg 80-90 O2 SATURATION ARTERIAL (BEAKER) (test rhxl=594) 99.8 % 96.0-97.0 HCO3 ARTERIAL (BEAKER) (test rltm=548) 27 mmol/L 21-29 BASE EXCESS ARTERIAL (BEAKER) (test hzqi=026) 0.3 mmol/L -2.0-3.0 PATIENT TEMPERATURE (BEAKER) (test izkm=6020) 28.9 C FIO2 (BEAKER) (test rpmr=2549) 70.0 % SODIUM NA-STAT [id number] 14:21:00 Test Item Value Reference Range Comments SODIUM (BEAKER) (test kccn=814) 133 meq/L 135-148 GLUCOSE-STAT [id number] 14:21:00 Test Item Value Reference Range Comments GLUCOSE RANDOM (BEAKER) (test yxud=490) 160 mg/dL 70-110 HGB/HCT (H&H) - STAT [id number] 14:21:00 Test Item Value Reference Range Comments HEMOGLOBIN (BEAKER) (test oprf=345) 7.5 g/dL 12.0-15.0 HEMATOCRIT (BEAKER) (test wqfn=989) 22.0 % 36.0-45.0 POTASSIUM-STAT [id number] 14:20:00 Test Item Value Reference Range Comments POTASSIUM (BEAKER) (test lfrg=134) 4.7 meq/L 3.6-5.5 BLOOD GAS, [id number] 13:58:00 Test Item Value Reference Range Comments PH ARTERIAL (BEAKER) (test mpmz=956) 7.43 7.35-7.45 PCO2 ARTERIAL (BEAKER) (test qkzs=000) 37 mmHg 35-45 PO2 ARTERIAL (BEAKER) (test wozp=668) 448 mmHg 80-90 O2 SATURATION ARTERIAL (BEAKER) (test edqz=130) 99.9 % 96.0-97.0 HCO3 ARTERIAL (BEAKER) (test savl=276) 26 mmol/L 21-29 BASE EXCESS ARTERIAL (BEAKER) (test pfys=855) -0.1 mmol/L -2.0-3.0 PATIENT TEMPERATURE (BEAKER) (test uckd=1085) 29.2 C FIO2 (BEAKER) (test rwbc=5880) 80.0 % SODIUM NA-STAT [id number] 13:58:00 Test Item Value Reference Range Comments SODIUM (BEAKER) (test xsrd=020) 132 meq/L 135-148 GLUCOSE-STAT [id number] 13:58:00 Test Item Value Reference Range Comments GLUCOSE RANDOM (BEAKER) (test dmlw=508) 166 mg/dL 70-110 HGB/HCT (H&H) - STAT [id number] 13:58:00 Test Item Value Reference Range Comments HEMOGLOBIN (BEAKER) (test eeup=795) 7.5 g/dL 12.0-15.0 HEMATOCRIT (BEAKER) (test xsvp=400) 22.0 % 36.0-45.0 POTASSIUM-STAT [id number] 13:57:00 Test Item Value Reference Range Comments POTASSIUM (BEAKER) (test fdkl=091) 4.7 meq/L 3.6-5.5 BLOOD GAS, [id number] 13:35:00 Test Item Value Reference Range Comments PH ARTERIAL (BEAKER) (test oine=856) 7.51 7.35-7.45 PCO2 ARTERIAL (BEAKER) (test cskq=884) 33 mmHg 35-45 PO2 ARTERIAL (BEAKER) (test scjr=726) 453 mmHg 80-90 O2 SATURATION ARTERIAL (BEAKER) (test cyee=681) 99.9 % 96.0-97.0 HCO3 ARTERIAL (BEAKER) (test fbqu=872) 28 mmol/L 21-29 BASE EXCESS ARTERIAL (BEAKER) (test zusy=048) 2.7 mmol/L -2.0-3.0 PATIENT TEMPERATURE (BEAKER) (test ysav=4064) 29.2 C FIO2 (BEAKER) (test hpit=6658) 80.0 % GLUCOSE-STAT [id number] 13:35:00 Test Item Value Reference Range Comments GLUCOSE RANDOM (BEAKER) (test ccgo=793) 130 mg/dL 70-110 HGB/HCT (H&H) - STAT [id number] 13:35:00 Test Item Value Reference Range Comments HEMOGLOBIN (BEAKER) (test xyhs=994) 6.7 g/dL 12.0-15.0 HEMATOCRIT (BEAKER) (test bike=637) 20.0 % 36.0-45.0 SODIUM NA-STAT [id number] 13:35:00 Test Item Value Reference Range Comments SODIUM (BEAKER) (test ijbb=304) 133 meq/L 135-148 POTASSIUM-STAT [id number] 13:34:00 Test Item Value Reference Range Comments POTASSIUM (BEAKER) (test gbcp=453) 4.2 meq/L 3.6-5.5 BLOOD GAS, [id number] 13:16:00 Test Item Value Reference Range Comments PH ARTERIAL (BEAKER) (test zgwb=265) 7.42 7.35-7.45 PCO2 ARTERIAL (BEAKER) (test bduy=518) 34 mmHg 35-45 PO2 ARTERIAL (BEAKER) (test nmdb=837) 375 mmHg 80-90 O2 SATURATION ARTERIAL (BEAKER) (test mppe=334) 99.8 % 96.0-97.0 HCO3 ARTERIAL (BEAKER) (test jqcx=984) 23 mmol/L 21-29 BASE EXCESS ARTERIAL (BEAKER) (test oexh=926) -2.5 mmol/L -2.0-3.0 PATIENT TEMPERATURE (BEAKER) (test bdew=6650) 31.5 C FIO2 (BEAKER) (test pmsj=4801) 80.0 % SODIUM NA-STAT [id number] 13:16:00 Test Item Value Reference Range Comments SODIUM (BEAKER) (test xvta=085) 133 meq/L 135-148 HGB/HCT (H&H) - STAT [id number] 13:16:00 Test Item Value Reference Range Comments HEMOGLOBIN (BEAKER) (test sylx=270) 6.3 g/dL 12.0-15.0 HEMATOCRIT (BEAKER) (test esov=255) 19.0 % 36.0-45.0 CALCIUM, [id number] 13:15:00 Test Item Value Reference Range Comments CALCIUM IONIZED (BEAKER) (test zcjs=027) 0.98 mmol/L 1.12-1.27 PH, BLOOD (BEAKER) (test tzkc=3510) 7.34 BLOOD GAS, [id number] 13:15:00 Test Item Value Reference Range Comments PH VENOUS (BEAKER) (test ncae=024) 7.39 7.32-7.42 PCO2 VENOUS (BEAKER) (test zyiu=156) 38 mmHg 41-51 PO2 VENOUS (BEAKER) (test prdc=397) 43 mmHg 25-40 O2 SATURATION VENOUS (BEAKER) (test vrjn=227) 90.0 % 40.0-70.0 HCO3 VENOUS (BEAKER) (test byts=934) 24 mmol/L 21-29 BASE EXCESS VENOUS (BEAKER) (test qwed=809) -2.1 mmol/L -2.0-3.0 PATIENT TEMPERATURE (BEAKER) (test hnfn=5369) 31.5 C FIO2 (BEAKER) (test oefu=3803) 80.0 % GLUCOSE-STAT [id number] 13:14:00 Test Item Value Reference Range Comments GLUCOSE RANDOM (BEAKER) (test hkwj=523) 92 mg/dL 70-110 POTASSIUM-STAT [id number] 13:14:00 Test Item Value Reference Range Comments POTASSIUM (BEAKER) (test pybo=666) 3.9 meq/L 3.6-5.5 BLOOD GAS, [id number] 10:54:00 Test Item Value Reference Range Comments PH ARTERIAL (BEAKER) (test hqlp=935) 7.41 7.35-7.45 PCO2 ARTERIAL (BEAKER) (test ohzw=877) 39 mmHg 35-45 PO2 ARTERIAL (BEAKER) (test pdfb=494) 254 mmHg 80-90 O2 SATURATION ARTERIAL (BEAKER) (test bocd=005) 99.6 % 96.0-97.0 HCO3 ARTERIAL (BEAKER) (test kcha=855) 25 mmol/L 21-29 BASE EXCESS ARTERIAL (BEAKER) (test ahnx=862) -0.3 mmol/L -2.0-3.0 PATIENT TEMPERATURE (BEAKER) (test hrbe=5221) 35.4 C FIO2 (BEAKER) (test potg=8433) 100.0 % HGB/HCT (H&H) - STAT [id number] 10:54:00 Test Item Value Reference Range Comments HEMOGLOBIN (BEAKER) (test qldt=238) 9.3 g/dL 12.0-15.0 HEMATOCRIT (BEAKER) (test squk=788) 27.0 % 36.0-45.0 SODIUM NA-STAT [id number] 10:54:00 Test Item Value Reference Range Comments SODIUM (BEAKER) (test rmal=570) 132 meq/L 135-148 GLUCOSE-STAT [id number] 10:52:00 Test Item Value Reference Range Comments GLUCOSE RANDOM (BEAKER) (test vecl=612) 94 mg/dL 70-110 POTASSIUM-STAT [id number] 10:52:00 Test Item Value Reference Range Comments POTASSIUM (BEAKER) (test pksz=576) 4.0 meq/L 3.6-5.5 HEMOGLOBIN [id number] 09:50:00 Test Item Value Reference Range Comments HEMOGLOBIN A1C (BEAKER) (test uuti=470) 10.6 % 4.3-6.1 PLATELET AGGREGATION: FUNCTION [id number] 08:27:00 Test Item Value Reference Range Comments WEAK ADP RESULT(BEAKER) (test 63 % 60-91 avbn=9499) PLATELET FUNCTION SCREEN 60-100% indicates normal INTERP (BEAKER) (test platelet function cxwd=1517) [id number] (BEAKER) Toshia Post MD (electronic (test lekq=5005) signature) PLATELET COUNT AGG (BEAKER) 198 K/CU MM 150-450 (test gitb=0616) for patients on clopidogrel in past two weeksPOCT-GLUCOSE [id number] 08:11: 00 Test Item Value Reference Range Comments POC-GLUCOSE METER (BEAKER) 116 mg/dL 70-110 TESTED AT [facility] [address] [facility] (test ygtq=3315) [place] [address] [id number] 07:10:00 Test Item Value Reference Range Comments PHOSPHORUS (BEAKER) (test jtxc=199) 4.5 mg/dL 2.3-4.7 [id number] 07:10:00 Test Item Value Reference Range Comments MAGNESIUM (BEAKER) (test ieby=003) 2.1 mg/dL 1.6-2.6 BASIC METABOLIC [id number] 07:10:00 Test Item Value Reference Range Comments SODIUM (BEAKER) (test 135 meq/L 136-145 pzkq=606) POTASSIUM (BEAKER) (test 4.4 meq/L 3.5-5.1 ohpw=275) CHLORIDE (BEAKER) (test 106 meq/L 98-107 jfdu=815) CO2 (BEAKER) (test 23 meq/L 22-29 omjo=926) BLOOD UREA NITROGEN 40 mg/dL 7-21 (BEAKER) (test rfau=780) CREATININE (BEAKER) (test 1.67 mg/dL 0.57-1.25 gfjp=420) GLUCOSE RANDOM (BEAKER) 107 mg/dL 70-105 (test dneg=586) CALCIUM (BEAKER) (test 8.3 mg/dL 8.4-10.2 ttgj=978) EGFR (BEAKER) (test 31 mL/min/1.73 sq m ESTIMATED GFR IS NOT bopt=3044) ACCURATE CREATININE CLEARANCE IN PREDICTING GLOMERULAR FILTRATION RATE. ESTIMATED GFR IS NOT APPLICABLE FOR DIALYSIS PATIENTS. B-TYPE NATRIURETIC FACTOR (BNP)2017-05-20 06:56:00 Test Item Value Reference Range Comments B-TYPE NATRIURETIC PEPTIDE (BEAKER) (test 552 pg/mL 0-100 eemy=940) CBC W/PLT COUNT & AUTO [id number] 06:46:00 Test Item Value Reference Range Comments WHITE BLOOD CELL COUNT (BEAKER) (test qfbk=039) 6.2 K/ L 3.5-10.5 RED BLOOD CELL COUNT (BEAKER) (test vlwv=993) 3.56 M/ L 3.93-5.22 HEMOGLOBIN (BEAKER) (test grjy=714) 9.1 GM/DL 11.2-15.7 HEMATOCRIT (BEAKER) (test fvpq=900) 29.5 % 34.1-44.9 MEAN CORPUSCULAR VOLUME (BEAKER) (test dfek=291) 82.9 fL 79.4-94.8 MEAN CORPUSCULAR HEMOGLOBIN (BEAKER) (test 25.6 pg 25.6-32.2 iebi=509) MEAN CORPUSCULAR HEMOGLOBIN CONC (BEAKER) (test 30.8 GM/DL 32.2-35.5 jkgq=451) RED CELL DISTRIBUTION WIDTH (BEAKER) (test 14.4 % 11.7-14.4 hcsi=996) PLATELET COUNT (BEAKER) (test wnlr=158) 222 K/CU MM 150-450 MEAN PLATELET VOLUME (BEAKER) (test npcd=859) 10.5 fL 9.4-12.3 NUCLEATED RED BLOOD CELLS (BEAKER) (test 0 /100 WBC 0-0 igug=703) NEUTROPHILS RELATIVE PERCENT (BEAKER) (test 47 % cadk=649) LYMPHOCYTES RELATIVE PERCENT (BEAKER) (test 39 % sfnw=069) MONOCYTES RELATIVE PERCENT (BEAKER) (test 8 % xqdu=555) EOSINOPHILS RELATIVE PERCENT (BEAKER) (test 5 % rcpl=897) BASOPHILS RELATIVE PERCENT (BEAKER) (test 1 % txkk=411) NEUTROPHILS ABSOLUTE COUNT (BEAKER) (test 2.90 K/ L 1.56-6.13 lrrp=118) LYMPHOCYTES ABSOLUTE COUNT (BEAKER) (test 2.37 K/ L 1.18-3.74 bhpo=383) MONOCYTES ABSOLUTE COUNT (BEAKER) (test 0.49 K/ L 0.24-0.36 ypkc=218) EOSINOPHILS ABSOLUTE COUNT (BEAKER) (test 0.30 K/ L 0.04-0.36 tvbk=053) BASOPHILS ABSOLUTE COUNT (BEAKER) (test 0.08 K/ L 0.01-0.08 blif=320) IMMATURE GRANULOCYTES-RELATIVE PERCENT (BEAKER) 0 % 0-1 (test zeyd=5267) CALCIUM, [id number] 06:40:00 Test Item Value Reference Range Comments CALCIUM IONIZED (BEAKER) (test mypi=130) 1.06 mmol/L 1.12-1.27 PH, BLOOD (BEAKER) (test loap=7275) 7.39 POCT-GLUCOSE [id number] 23:22:00 Test Item Value Reference Range Comments POC-GLUCOSE METER (BEAKER) 165 mg/dL 70-110 TESTED AT [facility] [address] [facility] (test jnkz=0945) [place] [address] URINE PROTEIN ELECTROPHORESIS, [id number] 18:02:00 Test Item Value Reference Range Comments PROTEIN, URINE (BEAKER) (test 305 mg/dL 0-14 zkut=6844) ALBUMIN URINE ELP (BEAKER) 70.9 % (test wkrh=0663) GAMMA GLOBULIN URINE (BEAKER) 29.1 % (test asss=6086) UPEP, ID-438 (BEAKER) (test No monoclonal bands detected. vxwt=6927) [id number] (BEAKER) Rocio Galindo MD (test ucac=7961) (electronic signature) PROTEIN ELECTROPHORESIS, [id number] 17:57:00 Test Item Value Reference Range Comments ALBUMIN FRACTION (BEAKER) 2.5 g/dL 3.5-5.5 (test ahkc=348) ALPHA 1 FRACTION (BEAKER) 0.3 g/dL 0.2-0.4 (test jyvf=226) ALPHA 2 FRACTION (BEAKER) 0.9 g/dL 0.5-0.9 (test mnfo=145) BETA FRACTION (BEAKER) (test 0.8 g/dL 0.6-1.1 lafx=965) GAMMA GLOBULIN FRACTION 1.0 g/dL 0.7-1.7 (BEAKER) (test dzdi=950) INTERPRETATION-119 (BEAKER) Decreased albumin with (test gkwd=7803) concurrent relative increases in all globulin fractions. No monoclonal bands detected. [id number] (BEAKER) Rocio Galindo MD (test zarb=9601) (electronic signature) PROTEIN TOTAL SERUM, SPEP 5.5 gm/dL 6.0-8.3 (BEAKER) (test cqvr=3127) POCT-GLUCOSE [id number] 17:15:00 Test Item Value Reference Range Comments POC-GLUCOSE METER (BEAKER) 209 mg/dL 70-110 TESTED AT [facility] [address] [facility] (test xldh=5426) [place] [address] BLOOD GAS, [id number] 15:54:00 Test Item Value Reference Range Comments PH ARTERIAL (BEAKER) (test zdal=958) 7.45 7.35-7.45 PCO2 ARTERIAL (BEAKER) (test qrua=505) 38 mmHg 35-45 PO2 ARTERIAL (BEAKER) (test umxt=417) 69 mmHg 80-90 O2 SATURATION ARTERIAL (BEAKER) (test vdqj=064) 94.5 % 96.0-97.0 HCO3 ARTERIAL (BEAKER) (test tkaw=564) 25 mmol/L 21-29 BASE EXCESS ARTERIAL (BEAKER) (test znzj=786) 1.3 mmol/L -2.0-3.0 PATIENT TEMPERATURE (BEAKER) (test yylo=8476) 37.0 C FIO2 (BEAKER) (test qvhr=9923) 36.0 % RAD, CHEST, 1 VIEW, NON [id number] 14:07:00Reason for exam:->SOB, hypoxemiaShould this be performed at the bedside?->YesFINAL REPORT Chest one view AP 05/19/2017 2:06 PM CLINICAL INDICATION: SOB, hypoxemia COMPARISON: 05/15/2017 IMPRESSION: There are right greater than left small volume pleural effusions. Adjacent dependent pulmonary opacities may reflect atelectasis or pneumonia. The cardiac silhouette is enlarged, but stable. There is central pulmonary vasculature congestion with mild interstitial edema. Signed: Eder Cespedes Verified Date/Time: 2017 14:07:07 Reading Location:[address] Consult Reading Room POCT- GLUCOSE [id number] 11:26:00 Test Item Value Reference Range Comments POC-GLUCOSE METER (BEAKER) 262 mg/dL 70-110 TESTED AT [address] (test ydks=0584) [place] [address] POCT-GLUCOSE [id number] 07:37:00 Test Item Value Reference Range Comments POC-GLUCOSE METER (BEAKER) 170 mg/dL 70-110 TESTED AT [address] (test qqhl=6196) [place] [address] CALCIUM, [id number] 06:06:00 Test Item Value Reference Range Comments CALCIUM IONIZED (BEAKER) (test cspo=129) 1.05 mmol/L 1.12-1.27 PH, BLOOD (BEAKER) (test qqsd=8046) 7.41 [id number] 05:38:00 Test Item Value Reference Range Comments PHOSPHORUS (BEAKER) (test qlgd=359) 3.9 mg/dL 2.3-4.7 [id number] 05:38:00 Test Item Value Reference Range Comments MAGNESIUM (BEAKER) (test njkg=775) 2.2 mg/dL 1.6-2.6 BASIC METABOLIC [id number] 05:38:00 Test Item Value Reference Range Comments SODIUM (BEAKER) (test 135 meq/L 136-145 xddc=130) POTASSIUM (BEAKER) (test 4.5 meq/L 3.5-5.1 kxdb=331) CHLORIDE (BEAKER) (test 105 meq/L 98-107 dvew=844) CO2 (BEAKER) (test 24 meq/L 22-29 vtmc=749) BLOOD UREA NITROGEN 41 mg/dL 7-21 (BEAKER) (test myzc=473) CREATININE (BEAKER) (test 1.74 mg/dL 0.57-1.25 phox=810) GLUCOSE RANDOM (BEAKER) 174 mg/dL 70-105 (test nsji=941) CALCIUM (BEAKER) (test 8.4 mg/dL 8.4-10.2 mwmp=735) EGFR (BEAKER) (test 30 mL/min/1.73 sq m ESTIMATED GFR IS NOT veax=5769) ACCURATE CREATININE CLEARANCE IN PREDICTING GLOMERULAR FILTRATION RATE. ESTIMATED GFR IS NOT APPLICABLE FOR DIALYSIS PATIENTS. CBC W/PLT COUNT & AUTO [id number] 05:09:00 Test Item Value Reference Range Comments WHITE BLOOD CELL COUNT (BEAKER) (test jipp=762) 8.5 K/ L 3.5-10.5 RED BLOOD CELL COUNT (BEAKER) (test tybu=554) 3.54 M/ L 3.93-5.22 HEMOGLOBIN (BEAKER) (test zsip=033) 9.1 GM/DL 11.2-15.7 HEMATOCRIT (BEAKER) (test anib=223) 29.1 % 34.1-44.9 MEAN CORPUSCULAR VOLUME (BEAKER) (test mmyg=099) 82.2 fL 79.4-94.8 MEAN CORPUSCULAR HEMOGLOBIN (BEAKER) (test 25.7 pg 25.6-32.2 lgra=805) MEAN CORPUSCULAR HEMOGLOBIN CONC (BEAKER) (test 31.3 GM/DL 32.2-35.5 lnae=690) RED CELL DISTRIBUTION WIDTH (BEAKER) (test 14.5 % 11.7-14.4 cxpf=335) PLATELET COUNT (BEAKER) (test yzwp=459) 201 K/CU MM 150-450 MEAN PLATELET VOLUME (BEAKER) (test wzph=160) 10.7 fL 9.4-12.3 NUCLEATED RED BLOOD CELLS (BEAKER) (test 0 /100 WBC 0-0 pbeg=435) NEUTROPHILS RELATIVE PERCENT (BEAKER) (test 56 % mpix=549) LYMPHOCYTES RELATIVE PERCENT (BEAKER) (test 32 % hatb=905) MONOCYTES RELATIVE PERCENT (BEAKER) (test 7 % lqje=634) EOSINOPHILS RELATIVE PERCENT (BEAKER) (test 4 % vctq=322) BASOPHILS RELATIVE PERCENT (BEAKER) (test 1 % tkaf=738) NEUTROPHILS ABSOLUTE COUNT (BEAKER) (test 4.80 K/ L 1.56-6.13 yvur=810) LYMPHOCYTES ABSOLUTE COUNT (BEAKER) (test 2.73 K/ L 1.18-3.74 soee=578) MONOCYTES ABSOLUTE COUNT (BEAKER) (test 0.62 K/ L 0.24-0.36 ineu=960) EOSINOPHILS ABSOLUTE COUNT (BEAKER) (test 0.30 K/ L 0.04-0.36 zfux=173) BASOPHILS ABSOLUTE COUNT (BEAKER) (test 0.06 K/ L 0.01-0.08 nsok=407) IMMATURE GRANULOCYTES-RELATIVE PERCENT (BEAKER) 0 % 0-1 (test zbgm=2502) POCT-GLUCOSE [id number] 22:08:00 Test Item Value Reference Range Comments POC-GLUCOSE METER (BEAKER) 263 mg/dL 70-110 TESTED AT [address] (test jjea=5616) [place] [address] POCT-GLUCOSE [id number] 17:20:00 Test Item Value Reference Range Comments POC-GLUCOSE METER (BEAKER) 233 mg/dL 70-110 TESTED AT [address] (test rkxm=0554) [place] [address] POCT-GLUCOSE [id number] 08:28:00 Test Item Value Reference Range Comments POC-GLUCOSE METER (BEAKER) 154 mg/dL 70-110 TESTED AT [address] (test tzvg=6698) [place] [address] BASIC METABOLIC [id number] 06:41:00 Test Item Value Reference Range Comments SODIUM (BEAKER) (test 135 meq/L 136-145 nefp=132) POTASSIUM (BEAKER) (test 4.6 meq/L 3.5-5.1 sdka=977) CHLORIDE (BEAKER) (test 104 meq/L 98-107 gfxg=372) CO2 (BEAKER) (test 23 meq/L 22-29 tzjj=532) BLOOD UREA NITROGEN 39 mg/dL 7-21 (BEAKER) (test qsxj=451) CREATININE (BEAKER) (test 1.77 mg/dL 0.57-1.25 qfyw=361) GLUCOSE RANDOM (BEAKER) 173 mg/dL 70-105 (test zhpl=486) CALCIUM (BEAKER) (test 8.6 mg/dL 8.4-10.2 nwhh=529) EGFR (BEAKER) (test 29 mL/min/1.73 sq m ESTIMATED GFR IS NOT iync=6296) ACCURATE CREATININE CLEARANCE IN PREDICTING GLOMERULAR FILTRATION RATE. ESTIMATED GFR IS NOT APPLICABLE FOR DIALYSIS PATIENTS. [id number] 06:35:00 Test Item Value Reference Range Comments PHOSPHORUS (BEAKER) (test ydif=433) 4.1 mg/dL 2.3-4.7 [id number] 06:35:00 Test Item Value Reference Range Comments MAGNESIUM (BEAKER) (test idvi=173) 2.1 mg/dL 1.6-2.6 CALCIUM, [id number] 06:22:00 Test Item Value Reference Range Comments CALCIUM IONIZED (BEAKER) (test gnge=161) 1.10 mmol/L 1.12-1.27 PH, BLOOD (BEAKER) (test fmtg=4751) 7.38 CBC W/PLT COUNT & AUTO [id number] 06:04:00 Test Item Value Reference Range Comments WHITE BLOOD CELL COUNT (BEAKER) (test obfv=398) 9.3 K/ L 3.5-10.5 RED BLOOD CELL COUNT (BEAKER) (test wuui=011) 4.15 M/ L 3.93-5.22 HEMOGLOBIN (BEAKER) (test hzcu=561) 10.6 GM/DL 11.2-15.7 HEMATOCRIT (BEAKER) (test usgh=770) 34.2 % 34.1-44.9 MEAN CORPUSCULAR VOLUME (BEAKER) (test wzjv=023) 82.4 fL 79.4-94.8 MEAN CORPUSCULAR HEMOGLOBIN (BEAKER) (test 25.5 pg 25.6-32.2 ihsl=833) MEAN CORPUSCULAR HEMOGLOBIN CONC (BEAKER) (test 31.0 GM/DL 32.2-35.5 aetz=300) RED CELL DISTRIBUTION WIDTH (BEAKER) (test 14.6 % 11.7-14.4 ueva=479) PLATELET COUNT (BEAKER) (test pfyp=772) 183 K/CU MM 150-450 MEAN PLATELET VOLUME (BEAKER) (test tcac=165) 11.0 fL 9.4-12.3 NUCLEATED RED BLOOD CELLS (BEAKER) (test 0 /100 WBC 0-0 yilv=970) NEUTROPHILS RELATIVE PERCENT (BEAKER) (test 66 % lohs=695) LYMPHOCYTES RELATIVE PERCENT (BEAKER) (test 24 % pexk=343) MONOCYTES RELATIVE PERCENT (BEAKER) (test 7 % cuyt=074) EOSINOPHILS RELATIVE PERCENT (BEAKER) (test 3 % lwjl=357) BASOPHILS RELATIVE PERCENT (BEAKER) (test 1 % ecnr=627) NEUTROPHILS ABSOLUTE COUNT (BEAKER) (test 6.15 K/ L 1.56-6.13 byal=107) LYMPHOCYTES ABSOLUTE COUNT (BEAKER) (test 2.20 K/ L 1.18-3.74 ifga=005) MONOCYTES ABSOLUTE COUNT (BEAKER) (test 0.62 K/ L 0.24-0.36 ujlm=121) EOSINOPHILS ABSOLUTE COUNT (BEAKER) (test 0.24 K/ L 0.04-0.36 qlvq=060) BASOPHILS ABSOLUTE COUNT (BEAKER) (test 0.06 K/ L 0.01-0.08 tpxq=581) IMMATURE GRANULOCYTES-RELATIVE PERCENT (BEAKER) 0 % 0-1 (test fwha=8186) POCT-GLUCOSE [id number] 03:44:00 Test Item Value Reference Range Comments POC-GLUCOSE METER (BEAKER) 220 mg/dL 70-110 TESTED AT [address] (test mdep=1854) [place] [address] POCT-GLUCOSE [id number] 18:27:00 Test Item Value Reference Range Comments POC-GLUCOSE METER (BEAKER) 256 mg/dL 70-110 TESTED AT [address] (test pyyz=3080) [place] [id number] POCT-GLUCOSE [id number] 15:45:00 Test Item Value Reference Range Comments POC-GLUCOSE METER (BEAKER) 278 mg/dL 70-110 TESTED AT [address] (test arja=1666) [place] [address] POCT-GLUCOSE [id number] 13:22:00 Test Item Value Reference Range Comments POC-GLUCOSE METER (BEAKER) 278 mg/dL 70-110 TESTED AT [address] (test cjkf=3386) [place] [id number] PLATELET AGGREGATION: FUNCTION [id number] 13:18:00 Test Item Value Reference Range Comments WEAK ADP RESULT(BEAKER) (test 66 % 60-91 bcvb=7265) PLATELET FUNCTION SCREEN 60-100% indicates normal INTERP (BEAKER) (test platelet function ltiq=3568) [id number] (BEAKER) Rigoberto Duenas MD (electronic (test girp=4812) signature) PLATELET COUNT AGG (BEAKER) 204 K/CU MM 150-450 (test oqxj=7766) POCT-GLUCOSE [id number] 08:27:00 Test Item Value Reference Range Comments POC-GLUCOSE METER (BEAKER) 189 mg/dL 70-110 TESTED AT [address] (test hrnm=5613) [place] [id number] CALCIUM, [id number] 06:12:00 Test Item Value Reference Range Comments CALCIUM IONIZED (BEAKER) (test goik=901) 1.07 mmol/L 1.12-1.27 PH, BLOOD (BEAKER) (test tcho=7152) 7.36 [id number] 05:43:00 Test Item Value Reference Range Comments PHOSPHORUS (BEAKER) (test opgd=042) 3.6 mg/dL 2.3-4.7 [id number] 05:43:00 Test Item Value Reference Range Comments MAGNESIUM (BEAKER) (test nguc=026) 2.1 mg/dL 1.6-2.6 BASIC METABOLIC [id number] 05:43:00 Test Item Value Reference Range Comments SODIUM (BEAKER) (test 137 meq/L 136-145 gwlp=068) POTASSIUM (BEAKER) (test 4.7 meq/L 3.5-5.1 znkv=498) CHLORIDE (BEAKER) (test 107 meq/L 98-107 oijo=534) CO2 (BEAKER) (test 24 meq/L 22-29 ofwp=136) BLOOD UREA NITROGEN 38 mg/dL 7-21 (BEAKER) (test oxpm=356) CREATININE (BEAKER) (test 1.72 mg/dL 0.57-1.25 gwmc=446) GLUCOSE RANDOM (BEAKER) 198 mg/dL 70-105 (test lnbb=487) CALCIUM (BEAKER) (test 8.3 mg/dL 8.4-10.2 qqmx=916) EGFR (BEAKER) (test 30 mL/min/1.73 sq m ESTIMATED GFR IS NOT qvze=0104) ACCURATE CREATININE CLEARANCE IN PREDICTING GLOMERULAR FILTRATION RATE. ESTIMATED GFR IS NOT APPLICABLE FOR DIALYSIS PATIENTS. CBC W/PLT COUNT & AUTO [id number] 05:05:00 Test Item Value Reference Range Comments WHITE BLOOD CELL COUNT (BEAKER) (test dhgh=527) 8.6 K/ L 3.5-10.5 RED BLOOD CELL COUNT (BEAKER) (test kmgm=531) 4.20 M/ L 3.93-5.22 HEMOGLOBIN (BEAKER) (test onua=069) 10.7 GM/DL 11.2-15.7 HEMATOCRIT (BEAKER) (test yheq=767) 34.7 % 34.1-44.9 MEAN CORPUSCULAR VOLUME (BEAKER) (test hbeg=260) 82.6 fL 79.4-94.8 MEAN CORPUSCULAR HEMOGLOBIN (BEAKER) (test 25.5 pg 25.6-32.2 knyn=242) MEAN CORPUSCULAR HEMOGLOBIN CONC (BEAKER) (test 30.8 GM/DL 32.2-35.5 htel=092) RED CELL DISTRIBUTION WIDTH (BEAKER) (test 14.7 % 11.7-14.4 zpzl=153) PLATELET COUNT (BEAKER) (test pwbu=331) 198 K/CU MM 150-450 MEAN PLATELET VOLUME (BEAKER) (test ujkm=457) 11.1 fL 9.4-12.3 NUCLEATED RED BLOOD CELLS (BEAKER) (test 0 /100 WBC 0-0 leyh=942) NEUTROPHILS RELATIVE PERCENT (BEAKER) (test 63 % kqrr=269) LYMPHOCYTES RELATIVE PERCENT (BEAKER) (test 28 % phne=697) MONOCYTES RELATIVE PERCENT (BEAKER) (test 6 % zgsq=057) EOSINOPHILS RELATIVE PERCENT (BEAKER) (test 3 % xpul=059) BASOPHILS RELATIVE PERCENT (BEAKER) (test 1 % ejrr=304) NEUTROPHILS ABSOLUTE COUNT (BEAKER) (test 5.41 K/ L 1.56-6.13 nzna=152) LYMPHOCYTES ABSOLUTE COUNT (BEAKER) (test 2.37 K/ L 1.18-3.74 zjnn=172) MONOCYTES ABSOLUTE COUNT (BEAKER) (test 0.50 K/ L 0.24-0.36 lqbg=216) EOSINOPHILS ABSOLUTE COUNT (BEAKER) (test 0.27 K/ L 0.04-0.36 rove=455) BASOPHILS ABSOLUTE COUNT (BEAKER) (test 0.06 K/ L 0.01-0.08 mnhz=380) IMMATURE GRANULOCYTES-RELATIVE PERCENT (BEAKER) 0 % 0-1 (test fake=3190) POCT-GLUCOSE [id number] 21:32:00 Test Item Value Reference Range Comments POC-GLUCOSE METER (BEAKER) 176 mg/dL 70-110 TESTED AT [address] (test kpka=6421) [place] [address] POCT-GLUCOSE [id number] 20:27:00 Test Item Value Reference Range Comments POC-GLUCOSE METER (BEAKER) 161 mg/dL 70-110 TESTED AT [address] (test wnkd=3051) [place] [address] POCT-GLUCOSE [id number] 18:23:00 Test Item Value Reference Range Comments POC-GLUCOSE METER (BEAKER) 185 mg/dL 70-110 TESTED AT [address] (test kpqs=1194) [place] [address] POCT-GLUCOSE [id number] 13:26:00 Test Item Value Reference Range Comments POC-GLUCOSE METER (BEAKER) 282 mg/dL 70-110 TESTED AT [address] (test twqb=1470) [place] [address] URINE [id number] 10:12:00 Test Item Value Reference Range Comments CULTURE (BEAKER) (test >100,000 col/mL skin todd xyjy=6294) POCT-GLUCOSE [id number] 09:01:00 Test Item Value Reference Range Comments POC-GLUCOSE METER (BEAKER) 268 mg/dL 70-110 TESTED AT [address] (test fuur=8428) [place] [id number] CALCIUM, [id number] 05:39:00 Test Item Value Reference Range Comments CALCIUM IONIZED (BEAKER) (test bujq=597) 0.84 mmol/L 1.12-1.27 PH, BLOOD (BEAKER) (test eraq=1173) 7.35 BASIC METABOLIC [id number] 05:07:00 Test Item Value Reference Range Comments SODIUM (BEAKER) (test 135 meq/L 136-145 pdac=743) POTASSIUM (BEAKER) (test 4.9 meq/L 3.5-5.1 sjhs=610) CHLORIDE (BEAKER) (test 106 meq/L 98-107 qwns=766) CO2 (BEAKER) (test 22 meq/L 22-29 fwwq=243) BLOOD UREA NITROGEN 43 mg/dL 7-21 (BEAKER) (test iywb=782) CREATININE (BEAKER) (test 2.00 mg/dL 0.57-1.25 vfvt=672) GLUCOSE RANDOM (BEAKER) 161 mg/dL 70-105 (test qzew=266) CALCIUM (BEAKER) (test 8.2 mg/dL 8.4-10.2 knmy=367) EGFR (BEAKER) (test 25 mL/min/1.73 sq m ESTIMATED GFR IS NOT hvwi=5944) ACCURATE CREATININE CLEARANCE IN PREDICTING GLOMERULAR FILTRATION RATE. ESTIMATED GFR IS NOT APPLICABLE FOR DIALYSIS PATIENTS. [id number] 05:06:00 Test Item Value Reference Range Comments PHOSPHORUS (BEAKER) (test wbae=836) 3.2 mg/dL 2.3-4.7 [id number] 05:06:00 Test Item Value Reference Range Comments MAGNESIUM (BEAKER) (test fvah=117) 2.3 mg/dL 1.6-2.6 CBC W/PLT COUNT & AUTO [id number] 04:42:00 Test Item Value Reference Range Comments WHITE BLOOD CELL COUNT (BEAKER) (test dkbr=176) 9.5 K/ L 3.5-10.5 RED BLOOD CELL COUNT (BEAKER) (test aflq=383) 4.17 M/ L 3.93-5.22 HEMOGLOBIN (BEAKER) (test fqsj=824) 10.5 GM/DL 11.2-15.7 HEMATOCRIT (BEAKER) (test ykpq=978) 34.2 % 34.1-44.9 MEAN CORPUSCULAR VOLUME (BEAKER) (test ctsy=265) 82.0 fL 79.4-94.8 MEAN CORPUSCULAR HEMOGLOBIN (BEAKER) (test 25.2 pg 25.6-32.2 zohc=144) MEAN CORPUSCULAR HEMOGLOBIN CONC (BEAKER) (test 30.7 GM/DL 32.2-35.5 cuor=686) RED CELL DISTRIBUTION WIDTH (BEAKER) (test 14.6 % 11.7-14.4 pjne=901) PLATELET COUNT (BEAKER) (test teqo=467) 177 K/CU MM 150-450 MEAN PLATELET VOLUME (BEAKER) (test vswx=396) 11.1 fL 9.4-12.3 NUCLEATED RED BLOOD CELLS (BEAKER) (test 0 /100 WBC 0-0 cbyy=601) NEUTROPHILS RELATIVE PERCENT (BEAKER) (test 55 % hxoy=546) LYMPHOCYTES RELATIVE PERCENT (BEAKER) (test 36 % fdhj=692) MONOCYTES RELATIVE PERCENT (BEAKER) (test 6 % xykr=434) EOSINOPHILS RELATIVE PERCENT (BEAKER) (test 2 % yveb=695) BASOPHILS RELATIVE PERCENT (BEAKER) (test 1 % ffjz=838) NEUTROPHILS ABSOLUTE COUNT (BEAKER) (test 5.20 K/ L 1.56-6.13 rnkc=391) LYMPHOCYTES ABSOLUTE COUNT (BEAKER) (test 3.37 K/ L 1.18-3.74 lesc=485) MONOCYTES ABSOLUTE COUNT (BEAKER) (test 0.59 K/ L 0.24-0.36 ljhh=290) EOSINOPHILS ABSOLUTE COUNT (BEAKER) (test 0.21 K/ L 0.04-0.36 vmwh=256) BASOPHILS ABSOLUTE COUNT (BEAKER) (test 0.07 K/ L 0.01-0.08 yuov=106) IMMATURE GRANULOCYTES-RELATIVE PERCENT (BEAKER) 0 % 0-1 (test uxdk=6904) RHEUMATOID FACTOR AB, REFLEX TO [id number] 01:52:00 Test Item Value Reference Range Comments RHEUMATOID FACTOR (BEAKER) (test dnhi=929) Negative POCT-GLUCOSE [id number] 21:57:00 Test Item Value Reference Range Comments POC-GLUCOSE METER (BEAKER) 105 mg/dL 70-110 TESTED AT [facility] [address] [facility] (test gndj=0127) [place] [address] POCT-GLUCOSE [id number] 18:11:00 Test Item Value Reference Range Comments POC-GLUCOSE METER (BEAKER) 312 mg/dL 70-110 Notified GUILHERME PIERRE/TESTED AT [facility] (test ngus=8263) [address] [place] [address] PET, CARDIAC PERFUSION MULTIPLE STUDIES, REST AND [id number] 16:28: 00Reason for exam:->pvcs, known cadFINAL REPORT PROCEDURE: Rest/Stress MYOCARDIAL PERFUSION PET with regadenoson\XA9\ CPT CODE: 63067 INDICATION: Defined extent and severity of known [...] was injected iv at expected peak pharmacologic effect , and gated PET images were obtained. PRELIMINARY STRESS TEST DATAFROM NONINVASIVE CARDIOLOGY: Pharmacologic stress was by 10-second [...] other stress and monitoring data are reported separatelyby Cardiology). IMAGING FINDINGS: Study quality is good. Images obtained after stress injection show decreased radiotracer uptake in all apical segments and the mid inferior segment of the LV. Resting images show decreased radiotracer uptake in the apical inferior and apical segment of the LV.LV volume appears mildly increased. RV volume appears normal. Gated images obtained immediately after stress show severely decreased LV function. Gated images obtained at rest show severely decreased LV function. LVEF at rest is 23% . LVEF at stress is 36%. Chemistry Technician CT images revealed a right pleural effusion and limited pericardial effusion. IMPRESSION: 1. Abnormal study. 2. Appropriate pharmacologicstress. 3. Abnormal myocardial perfusion. There is a severe, small size, fixed, perfusion defect in the apical inferior and apical segments of the LV. There is also a severe , medium size, reversibleperfusion defect in the mid inferior and all other periapical segments of the LV - consistent with significant tracey-infarct ischemia. 4. Markedly decreased resting LV function. No deterioration of function is noted with pharmacologic stress. 5. Extracardiac tracer distribution is normal. 6. CT images revealed pleural and pericardial effusions. 7. No previous [facility] study for comparison. NONINVASIVE RISK STRATIFICATION: The above findings are considered high risk (>3% annual mortality rate) based on the following criteria: - Severe resting left ventricular dysfunction (LVEF 35%)- Stress-induced large perfusion defect ( particularly if anterior)(JACC. 2012;59(9):857-81.) Signed: Last Lopez Verified Date/Time: 05/15/2017 16:28:12 Reading Location: [address] Med ReadingRoom RAD, CHEST, 1 VIEW, NON [id number] 15:56:00Reason for exam:->SOBShould this be performed at the bedside?->YesFINAL REPORT Comparison: 05/14/2017 TECHNIQUE: Single view of the chest FINDINGS: There is a small right pleural effusion with nonspecific airspace disease. This is unchanged. Left lung is grossly clear. Cardiac silhouette is enlarged. IMPRESSION: 1. No acute cardiopulmonary disease. Signed : Sixto Monk Verified Date/Time: 05/15/2017 15:56:39 Reading Location : [facility] Radiology Reading Room POCT-GLUCOSE [id number] 12:54:00 Test Item Value Reference Range Comments POC-GLUCOSE METER (BEAKER) 308 mg/dL 70-110 Notified GUILHERME PIERRE/TESTED AT [facility] (test vixm=3005) [address] [facility] [address] U/S, RENAL WITH [id number] 11:04:00Reason for exam:->tracy, htnShould this be performed at the bedside?->YesFINAL REPORT Realtime Renal ultrasound with Renal Doppler Comparison: No comparison Clinical History: Acute kidney injury and hypertension Technique:Real time sonographic evaluation of the kidneys was performed. 81 images were submitted for interpretation, using a five MHz transducer. Color and spectral Doppler images were submitted for interpretation. Right kidney:The kidney measures 12.6 cm in length. The [...] systolic velocity of the main renal artery wasunremarkable as compared to the aorta. The resistive indices measure 0.77, 0.78 and 0.69 in the upper mid and lower poles respectively Left kidney:The kidney measures 12.3 cm in length. The corticalechogenicity is within normal limits. The cortex measures 1.1 cm. There is no evidence of a focal mass. There is no evidence of hydronephrosis. There is no evidence of a shadowing stone. There is no evidence of a cyst. There is no evidence of a perinephric fluid collection. Flow was visualizedto the left kidney. The acceleration times are within normal limits. There was no evidence of a delayed systolic peak. The peak systolic velocity of the main renal artery was unremarkable as compared to the aorta. The resistive indices measure 0.72, 0.74 and 0.70 in the upper mid and lower poles respectively Survey images of the bladder demonstrate no abnormality. Impression:The kidneys are normal in size without evidence of hydronephrosis. Doppler interrogation demonstrates a nonspecific increase in the resistive indices throughout. Signed : Anahi Hobbs Verified Date/Time: 05/15/2017 11:04:01 Reading Location : [facility] [id number] Ultrasound Reading Room ANA TITER AND [id number] 10:57:00 Test Item Value Reference Range Comments ROGER TITER (BEAKER) (test uxfy=4560) :160 ROGER PATTERN (BEAKER) (test gpuy=7587) Speckled ANTI-NUCLEAR ANTIBODY (ROGER)2017-05-15 10:56:00 Test Item Value Reference Range Comments ANTI-NUCLEAR ANTIBODY (ROGER) (BEAKER) (test Positive Negative qkbn=662) CALCIUM, [id number] 06:00:00 Test Item Value Reference Range Comments CALCIUM IONIZED (BEAKER) (test giek=289) 1.07 mmol/L 1.12-1.27 PH, BLOOD (BEAKER) (test yarj=3747) 7.28 HEPATITIS PANEL, [id number] 05:01:00 Test Item Value Reference Range Comments HEPATITIS A IGM ANTIBODY (BEAKER) (test Nonreactive Nonreactive waev=288) HEPATITIS B CORE IGM ANTIBODY (BEAKER) (test Nonreactive Nonreactive crxy=166) HEPATITIS C ANTIBODY (BEAKER) (test kacy=304) Nonreactive Nonreactive HEPATITIS B SURFACE ANTIGEN (2) (BEAKER) (test Nonreactive Nonreactive zcfi=6698) BASIC METABOLIC [id number] 04:48:00 Test Item Value Reference Range Comments SODIUM (BEAKER) (test 135 meq/L 136-145 wgfo=740) POTASSIUM (BEAKER) (test 5.2 meq/L 3.5-5.1 fxso=676) CHLORIDE (BEAKER) (test 104 meq/L 98-107 lljf=820) CO2 (BEAKER) (test 22 meq/L 22-29 acmu=526) BLOOD UREA NITROGEN 46 mg/dL 7-21 (BEAKER) (test atue=560) CREATININE (BEAKER) (test 2.64 mg/dL 0.57-1.25 zudr=687) GLUCOSE RANDOM (BEAKER) 176 mg/dL 70-105 (test srns=481) CALCIUM (BEAKER) (test 8.2 mg/dL 8.4-10.2 udtb=141) EGFR (BEAKER) (test 18 mL/min/1.73 sq m ESTIMATED GFR IS NOT ucak=0095) ACCURATE CREATININE CLEARANCE IN PREDICTING GLOMERULAR FILTRATION RATE. ESTIMATED GFR IS NOT APPLICABLE FOR DIALYSIS PATIENTS. URIC [id number] 04:41:00 Test Item Value Reference Range Comments URIC ACID (BEAKER) (test jiih=105) 10.3 mg/dL 2.6-7.2 [id number] 04:41:00 Test Item Value Reference Range Comments MAGNESIUM (BEAKER) (test kiwe=761) 2.0 mg/dL 1.6-2.6 [id number] 04:41:00 Test Item Value Reference Range Comments PHOSPHORUS (BEAKER) (test xosm=556) 4.2 mg/dL 2.3-4.7 COMPLEMENT COMPONENT [id number] 04:38:00 Test Item Value Reference Range Comments C4 COMPLEMENT (BEAKER) (test pohf=427) 28 mg/dL 15-57 COMPLEMENT COMPONENT [id number] 04:38:00 Test Item Value Reference Range Comments C3 COMPLEMENT (BEAKER) (test hbjj=940) 103 mg/dL 82-193 CBC W/PLT COUNT & AUTO [id number] 04:22:00 Test Item Value Reference Range Comments WHITE BLOOD CELL COUNT (BEAKER) (test mpor=647) 11.0 K/ L 3.5-10.5 RED BLOOD CELL COUNT (BEAKER) (test gcwu=552) 4.25 M/ L 3.93-5.22 HEMOGLOBIN (BEAKER) (test fbwx=731) 10.6 GM/DL 11.2-15.7 HEMATOCRIT (BEAKER) (test aofo=236) 35.3 % 34.1-44.9 MEAN CORPUSCULAR VOLUME (BEAKER) (test jlpa=746) 83.1 fL 79.4-94.8 MEAN CORPUSCULAR HEMOGLOBIN (BEAKER) (test 24.9 pg 25.6-32.2 mttq=193) MEAN CORPUSCULAR HEMOGLOBIN CONC (BEAKER) (test 30.0 GM/DL 32.2-35.5 kdwq=682) RED CELL DISTRIBUTION WIDTH (BEAKER) (test 14.5 % 11.7-14.4 uckh=910) PLATELET COUNT (BEAKER) (test lrsv=906) 185 K/CU MM 150-450 MEAN PLATELET VOLUME (BEAKER) (test bngl=225) 10.9 fL 9.4-12.3 NUCLEATED RED BLOOD CELLS (BEAKER) (test 0 /100 WBC 0-0 xqqb=102) NEUTROPHILS RELATIVE PERCENT (BEAKER) (test 61 % nlgy=780) LYMPHOCYTES RELATIVE PERCENT (BEAKER) (test 31 % bgrp=834) MONOCYTES RELATIVE PERCENT (BEAKER) (test 5 % kmqj=392) EOSINOPHILS RELATIVE PERCENT (BEAKER) (test 2 % uqlz=235) BASOPHILS RELATIVE PERCENT (BEAKER) (test 1 % skjn=633) NEUTROPHILS ABSOLUTE COUNT (BEAKER) (test 6.72 K/ L 1.56-6.13 xxjt=783) LYMPHOCYTES ABSOLUTE COUNT (BEAKER) (test 3.35 K/ L 1.18-3.74 vbkn=610) MONOCYTES ABSOLUTE COUNT (BEAKER) (test 0.59 K/ L 0.24-0.36 imhf=826) EOSINOPHILS ABSOLUTE COUNT (BEAKER) (test 0.21 K/ L 0.04-0.36 pckv=519) BASOPHILS ABSOLUTE COUNT (BEAKER) (test 0.06 K/ L 0.01-0.08 csgd=853) IMMATURE GRANULOCYTES-RELATIVE PERCENT (BEAKER) 0 % 0-1 (test stso=0558) POCT-GLUCOSE [id number] 21:46:00 Test Item Value Reference Range Comments POC-GLUCOSE METER (BEAKER) 173 mg/dL 70-110 TESTED AT [address] (test drei=8119) [place] [address] POCT-GLUCOSE [id number] 21:46:00 Test Item Value Reference Range Comments POC-GLUCOSE METER (BEAKER) 154 mg/dL 70-110 TESTED AT [address] (test jzht=4940) [place] [id number] POCT-GLUCOSE [id number] 18:17:00 Test Item Value Reference Range Comments POC-GLUCOSE METER (BEAKER) 175 mg/dL 70-110 TESTED AT [address] (test vvob=4406) [place] [address] RAD, CHEST, 1 VIEW, NON [id number] 14:56:00Reason for exam:->SOBShould this be performed at the bedside?->YesFINAL REPORT INDICATION: SOB COMPARISON: May 13, 2017 TECHNIQUE: Chest radiograph, single view, portable technique. FINDINGS / IMPRESSION: Enlarged heart shadow, small rightpleural effusion, and pulmonary venous congestion, again demonstrated. No pneumothorax or consolidation. Osseous structures unremarkable. Signed: Satnam Jean MDReport Verified Date/Time: 05/14/2017 14:56:58 Reading Location: [facility] Mammo Reading Room POCT-GLUCOSE [id number] 12:18:00 Test Item Value Reference Range Comments POC-GLUCOSE METER (BEAKER) 313 mg/dL 70-110 TESTED AT [facility] [address] (test rpzv=9653) [place] [address] HIV-1 ANTIGEN WITH HIV-1/2 [id number] 12:07:00 Test Item Value Reference Range Comments HIV-1 ANTIGEN WITH HIV 1\T\2 ANTIBODY (2) Nonreactive Nonreactive (BEAKER) (test ipcl=0264) CALCIUM, [id number] 06:37:00 Test Item Value Reference Range Comments CALCIUM IONIZED (BEAKER) (test hpow=202) 1.08 mmol/L 1.12-1.27 PH, BLOOD (BEAKER) (test kgob=9176) 7.25 BASIC METABOLIC [id number] 06:26:00 Test Item Value Reference Range Comments SODIUM (BEAKER) (test 134 meq/L 136-145 whzm=834) POTASSIUM (BEAKER) (test 5.1 meq/L 3.5-5.1 awra=583) CHLORIDE (BEAKER) (test 103 meq/L 98-107 kjjy=448) CO2 (BEAKER) (test 25 meq/L 22-29 gwbw=247) BLOOD UREA NITROGEN 45 mg/dL 7-21 (BEAKER) (test pera=470) CREATININE (BEAKER) (test 2.92 mg/dL 0.57-1.25 egos=971) GLUCOSE RANDOM (BEAKER) 163 mg/dL 70-105 (test nobi=353) CALCIUM (BEAKER) (test 8.1 mg/dL 8.4-10.2 yxvk=619) EGFR (BEAKER) (test 16 mL/min/1.73 sq m ESTIMATED GFR IS NOT uhdn=5046) ACCURATE CREATININE CLEARANCE IN PREDICTING GLOMERULAR FILTRATION RATE. ESTIMATED GFR IS NOT APPLICABLE FOR DIALYSIS PATIENTS. B-TYPE NATRIURETIC FACTOR (BNP)2017-05-14 06:26:00 Test Item Value Reference Range Comments B-TYPE NATRIURETIC PEPTIDE (BEAKER) (test 474 pg/mL 0-100 wxmz=104) [id number] 06:25:00 Test Item Value Reference Range Comments PHOSPHORUS (BEAKER) (test pfcv=815) 5.7 mg/dL 2.3-4.7 [id number] 06:25:00 Test Item Value Reference Range Comments MAGNESIUM (BEAKER) (test msto=729) 1.5 mg/dL 1.6-2.6 CBC W/PLT COUNT & AUTO [id number] 06:07:00 Test Item Value Reference Range Comments WHITE BLOOD CELL COUNT (BEAKER) (test ldnw=774) 8.9 K/ L 3.5-10.5 RED BLOOD CELL COUNT (BEAKER) (test tpaj=321) 4.32 M/ L 3.93-5.22 HEMOGLOBIN (BEAKER) (test negk=956) 11.0 GM/DL 11.2-15.7 HEMATOCRIT (BEAKER) (test cabt=041) 36.6 % 34.1-44.9 MEAN CORPUSCULAR VOLUME (BEAKER) (test ngyv=686) 84.7 fL 79.4-94.8 MEAN CORPUSCULAR HEMOGLOBIN (BEAKER) (test 25.5 pg 25.6-32.2 uoic=375) MEAN CORPUSCULAR HEMOGLOBIN CONC (BEAKER) (test 30.1 GM/DL 32.2-35.5 wpos=398) RED CELL DISTRIBUTION WIDTH (BEAKER) (test 14.6 % 11.7-14.4 loth=873) PLATELET COUNT (BEAKER) (test upeo=908) 201 K/CU MM 150-450 MEAN PLATELET VOLUME (BEAKER) (test krsw=893) 11.1 fL 9.4-12.3 NUCLEATED RED BLOOD CELLS (BEAKER) (test 0 /100 WBC 0-0 myqf=360) NEUTROPHILS RELATIVE PERCENT (BEAKER) (test 55 % sdqk=004) LYMPHOCYTES RELATIVE PERCENT (BEAKER) (test 36 % yjjh=876) MONOCYTES RELATIVE PERCENT (BEAKER) (test 5 % turc=840) EOSINOPHILS RELATIVE PERCENT (BEAKER) (test 3 % ntfr=646) BASOPHILS RELATIVE PERCENT (BEAKER) (test 1 % uosu=707) NEUTROPHILS ABSOLUTE COUNT (BEAKER) (test 4.85 K/ L 1.56-6.13 clkw=376) LYMPHOCYTES ABSOLUTE COUNT (BEAKER) (test 3.18 K/ L 1.18-3.74 ftrv=008) MONOCYTES ABSOLUTE COUNT (BEAKER) (test 0.47 K/ L 0.24-0.36 humk=242) EOSINOPHILS ABSOLUTE COUNT (BEAKER) (test 0.25 K/ L 0.04-0.36 wdoq=793) BASOPHILS ABSOLUTE COUNT (BEAKER) (test 0.07 K/ L 0.01-0.08 lnnk=047) IMMATURE GRANULOCYTES-RELATIVE PERCENT (BEAKER) 0 % 0-1 (test zgpp=5482) POCT-GLUCOSE [id number] 22:38:00 Test Item Value Reference Range Comments POC-GLUCOSE METER (BEAKER) 262 mg/dL 70-110 TESTED AT [facility] [address] [facility] (test qaed=3787) [place] [address] PROTEIN, RANDOM [id number] 22:18:00 Test Item Value Reference Range Comments PROTEIN, URINE (BEAKER) (test nqzi=2638) 641 mg/dL 0-14 CREATININE, RANDOM [id number] 22:07:00 Test Item Value Reference Range Comments CREATININE URINE (BEAKER) (test axzm=166) 124.9 mg/dL Reference Range: No NormalsURINALYSIS W/ [id number] 22:03:00 Test Item Value Reference Range Comments COLOR (BEAKER) (test zrbb=774) Yellow CLARITY (BEAKER) (test qytg=119) Cloudy SPECIFIC GRAVITY UA (BEAKER) (test mpvc=886) 1.015 1.001-1.035 PH UA (BEAKER) (test vdfp=688) 5.5 5.0-8.0 PROTEIN UA (BEAKER) (test hssk=842) 300 mg/dL Negative GLUCOSE UA (BEAKER) (test uzps=790) 300 mg/dL Negative KETONES UA (BEAKER) (test lqxw=814) Negative Negative BILIRUBIN UA (BEAKER) (test xbxo=895) Negative Negative BLOOD UA (BEAKER) (test kxvc=311) Trace Negative NITRITE UA (BEAKER) (test zqqn=724) Negative Negative LEUKOCYTE ESTERASE UA (BEAKER) (test cdtl=159) Moderate Negative UROBILINOGEN UA (BEAKER) (test pcdj=654) 0.2 mg/dL 0.2-1.0 RBC UA (BEAKER) (test zoyc=317) 11 /HPF WBC UA (BEAKER) (test fcdm=792) 36 /HPF MUCUS (BEAKER) (test rqmr=0533) Few SQUAMOUS EPITHELIAL (BEAKER) (test oboj=897) 12 /HPF HYALINE CASTS (BEAKER) (test qybr=145) 66 /LPF CASTS (BEAKER) (test rmpg=2314) 112 /LPF YEAST (BEAKER) (test vuhu=3060) Moderate SOURCE(BEAKER) (test mgnq=4601) Urine, Voided [id number] 19:49:00 Test Item Value Reference Range Comments SODIUM (BEAKER) (test smag=612) 136 meq/L 136-145 POTASSIUM (BEAKER) (test 5.1 meq/L 3.5-5.1 Specimen slightly hemolyzed jjjn=221) CHLORIDE (BEAKER) (test 104 meq/L 98-107 pbmq=349) CO2 (BEAKER) (test lclf=847) 25 meq/L 22-29 Call if K > 5POCT-GLUCOSE [id number] 11:37:00 Test Item Value Reference Range Comments POC-GLUCOSE METER (BEAKER) 293 mg/dL 70-110 TESTED AT [address] (test ulhh=9728) [place] [address] RAD, CHEST, 1 VIEW, NON [id number] 10:22:00Reason for exam:->SOBShould this be performed at the bedside?->YesFINAL REPORT Chest one view Discussion: There is cardiomegaly and interstitial congestion. A small right-sided effusion is noted. No pneumothorax. IMPRESSIONS: Suspected CHF. Signed: Jeannette Nava Verified Date/Time: 05/13/2017 10:22:34 Reading Location: [facility] Radiology Reading Room POCT-GLUCOSE [id number] 08:34:00 Test Item Value Reference Range Comments POC-GLUCOSE METER (BEAKER) 178 mg/dL 70-110 TESTED AT [place] [id number] [facility] (test bsvd=6500) [place] [address] POCT-GLUCOSE [id number] 06:53:00 Test Item Value Reference Range Comments POC-GLUCOSE METER (BEAKER) 167 mg/dL 70-110 TESTED AT [facility] [address] (test hnxp=6530) [place] [address] [id number] 04:48:00 Test Item Value Reference Range Comments BLOOD UREA NITROGEN (BEAKER) (test nlcz=250) 36 mg/dL 7-21 [id number] 04:48:00 Test Item Value Reference Range Comments SODIUM (BEAKER) (test uqvm=014) 139 meq/L 136-145 POTASSIUM (BEAKER) (test xmhl=670) 5.2 meq/L 3.5-5.1 CHLORIDE (BEAKER) (test azwe=312) 109 meq/L 98-107 CO2 (BEAKER) (test ortr=118) 23 meq/L 22-29 [id number] 04:48:00 Test Item Value Reference Range Comments CREATININE (BEAKER) (test 1.73 mg/dL 0.57-1.25 boug=106) EGFR (BEAKER) (test 30 mL/min/1.73 sq m ESTIMATED GFR IS NOT nfen=6026) ACCURATE CREATININE CLEARANCE IN PREDICTING GLOMERULAR FILTRATION RATE. ESTIMATED GFR IS NOT APPLICABLE FOR DIALYSIS PATIENTS. CBC (HEMOGRAM ONLY)2017-05-13 04:33:00 Test Item Value Reference Range Comments WHITE BLOOD CELL COUNT (BEAKER) (test qqnf=683) 10.2 K/ L 3.5-10.5 RED BLOOD CELL COUNT (BEAKER) (test lmpa=469) 4.54 M/ L 3.93-5.22 HEMOGLOBIN (BEAKER) (test ubby=501) 11.4 GM/DL 11.2-15.7 HEMATOCRIT (BEAKER) (test mbnv=292) 37.6 % 34.1-44.9 MEAN CORPUSCULAR VOLUME (BEAKER) (test zilo=594) 82.8 fL 79.4-94.8 MEAN CORPUSCULAR HEMOGLOBIN (BEAKER) (test 25.1 pg 25.6-32.2 mtyk=288) MEAN CORPUSCULAR HEMOGLOBIN CONC (BEAKER) (test 30.3 GM/DL 32.2-35.5 nozv=934) RED CELL DISTRIBUTION WIDTH (BEAKER) (test 14.7 % 11.7-14.4 nvsh=147) PLATELET COUNT (BEAKER) (test gdzt=517) 194 K/CU MM 150-450 MEAN PLATELET VOLUME (BEAKER) (test jzsf=897) 10.9 fL 9.4-12.3 NUCLEATED RED BLOOD CELLS (BEAKER) (test 0 /100 WBC 0-0 ythd=975) [id number] 23:29:00 Test Item Value Reference Range Comments ACTIVATED CLOTTING TIME 136 sec TESTED AT [place] [address] [facility] (BEAKER) (test jolm=387) [place] [address] [id number] 20:13:00 Test Item Value Reference Range Comments ACTIVATED CLOTTING TIME 175 sec TESTED AT [address] (BEAKER) (test yrev=477) [place] [address] [id number] 18:36:00 Test Item Value Reference Range Comments ACTIVATED CLOTTING TIME 202 sec TESTED AT [address] (BEAKER) (test lryg=066) [place] [address] [id number] 18:03:00 Test Item Value Reference Range Comments ACTIVATED CLOTTING TIME 208 sec TESTED AT [address] (BEAKER) (test ueoh=636) [place] [address] BASIC METABOLIC [id number] 11:57:00 Test Item Value Reference Range Comments SODIUM (BEAKER) (test 139 meq/L 136-145 wjzj=977) POTASSIUM (BEAKER) (test 4.9 meq/L 3.5-5.1 fekj=515) CHLORIDE (BEAKER) (test 107 meq/L 98-107 nrws=657) CO2 (BEAKER) (test 27 meq/L 22-29 cnen=013) BLOOD UREA NITROGEN 36 mg/dL 7-21 (BEAKER) (test apjk=651) CREATININE (BEAKER) (test 1.60 mg/dL 0.57-1.25 zxcx=930) GLUCOSE RANDOM (BEAKER) 187 mg/dL 70-105 (test ucnn=002) CALCIUM (BEAKER) (test 8.6 mg/dL 8.4-10.2 kibb=712) EGFR (BEAKER) (test 33 mL/min/1.73 sq m ESTIMATED GFR IS NOT dwef=6428) ACCURATE CREATININE CLEARANCE IN PREDICTING GLOMERULAR FILTRATION RATE. ESTIMATED GFR IS NOT APPLICABLE FOR DIALYSIS PATIENTS. PROTHROMBIN [id number] 11:15:00 Test Item Value Reference Range Comments PROTIME (BEAKER) (test wqod=664) 14.8 seconds 11.7-14.7 INR (BEAKER) (test ordw=494) 1.2 <=5.9 RECOMMENDED COUMADIN/WARFARIN INR THERAPY RANGESSTANDARD DOSE: 2.0 - 3.0 Includes: PROPHYLAXIS forvenous thrombosis, systemic embolization; TREATMENT for venous thrombosis and/or pulmonary embolus.HIGH RISK: Target INR is 2.5-3.5 for patients with mechanical heart valves.Within 24 hours, if on CoumadinCBC W/ PLT COUNT & AUTO [id number] 11:01:00 Test Item Value Reference Range Comments WHITE BLOOD CELL COUNT (BEAKER) (test uoyd=633) 9.1 K/ L 3.5-10.5 RED BLOOD CELL COUNT (BEAKER) (test txak=904) 4.62 M/ L 3.93-5.22 HEMOGLOBIN (BEAKER) (test xftq=095) 11.7 GM/DL 11.2-15.7 HEMATOCRIT (BEAKER) (test putz=746) 38.0 % 34.1-44.9 MEAN CORPUSCULAR VOLUME (BEAKER) (test ajwo=198) 82.3 fL 79.4-94.8 MEAN CORPUSCULAR HEMOGLOBIN (BEAKER) (test 25.3 pg 25.6-32.2 ezze=921) MEAN CORPUSCULAR HEMOGLOBIN CONC (BEAKER) (test 30.8 GM/DL 32.2-35.5 vifn=460) RED CELL DISTRIBUTION WIDTH (BEAKER) (test 14.5 % 11.7-14.4 dqyy=823) PLATELET COUNT (BEAKER) (test mrqq=947) 205 K/CU MM 150-450 MEAN PLATELET VOLUME (BEAKER) (test hdde=736) 10.6 fL 9.4-12.3 NUCLEATED RED BLOOD CELLS (BEAKER) (test 0 /100 WBC 0-0 rzff=138) NEUTROPHILS RELATIVE PERCENT (BEAKER) (test 59 % spjd=013) LYMPHOCYTES RELATIVE PERCENT (BEAKER) (test 32 % ubgl=512) MONOCYTES RELATIVE PERCENT (BEAKER) (test 5 % osig=742) EOSINOPHILS RELATIVE PERCENT (BEAKER) (test 3 % agqr=964) BASOPHILS RELATIVE PERCENT (BEAKER) (test 1 % xgwc=063) NEUTROPHILS ABSOLUTE COUNT (BEAKER) (test 5.36 K/ L 1.56-6.13 tlww=449) LYMPHOCYTES ABSOLUTE COUNT (BEAKER) (test 2.86 K/ L 1.18-3.74 wgcx=241) MONOCYTES ABSOLUTE COUNT (BEAKER) (test 0.48 K/ L 0.24-0.36 wjjf=379) EOSINOPHILS ABSOLUTE COUNT (BEAKER) (test 0.27 K/ L 0.04-0.36 bqav=900) BASOPHILS ABSOLUTE COUNT (BEAKER) (test 0.08 K/ L 0.01-0.08 mjpv=072) IMMATURE GRANULOCYTES-RELATIVE PERCENT (BEAKER) 0 % 0-1 (test cgty=9825) POCT-GLUCOSE [id number] 12:35:00 Test Item Value Reference Range Comments POC-GLUCOSE METER (BEAKER) 249 mg/dL 70-110 TESTED AT [address] (test jknk=1521) [place] [address] POCT-GLUCOSE [id number] 09:10:00 Test Item Value Reference Range Comments POC-GLUCOSE METER (BEAKER) 155 mg/dL 70-110 TESTED AT [address] (test ljkb=3961) [place] [id number] BASIC METABOLIC [id number] 05:39:00 Test Item Value Reference Range Comments SODIUM (BEAKER) (test 138 meq/L 136-145 qfzx=470) POTASSIUM (BEAKER) (test 4.7 meq/L 3.5-5.1 qkgc=998) CHLORIDE (BEAKER) (test 107 meq/L 98-107 nxyw=453) CO2 (BEAKER) (test 25 meq/L 22-29 zasv=810) BLOOD UREA NITROGEN 36 mg/dL 7-21 (BEAKER) (test vkkj=658) CREATININE (BEAKER) (test 1.75 mg/dL 0.57-1.25 disx=551) GLUCOSE RANDOM (BEAKER) 126 mg/dL 70-105 (test gbze=898) CALCIUM (BEAKER) (test 8.2 mg/dL 8.4-10.2 itmg=462) EGFR (BEAKER) (test 29 mL/min/1.73 sq m ESTIMATED GFR IS NOT cqld=8891) ACCURATE CREATININE CLEARANCE IN PREDICTING GLOMERULAR FILTRATION RATE. ESTIMATED GFR IS NOT APPLICABLE FOR DIALYSIS PATIENTS. [id number] 05:27:00 Test Item Value Reference Range Comments PHOSPHORUS (BEAKER) (test abqz=995) 5.0 mg/dL 2.3-4.7 [id number] 05:27:00 Test Item Value Reference Range Comments MAGNESIUM (BEAKER) (test cdtt=144) 1.6 mg/dL 1.6-2.6 POCT-GLUCOSE [id number] 05:25:00 Test Item Value Reference Range Comments POC-GLUCOSE METER (BEAKER) 144 mg/dL 70-110 TESTED AT [address] (test qlfb=0263) [place] [address] PROTHROMBIN [id number] 04:58:00 Test Item Value Reference Range Comments PROTIME (BEAKER) (test ksej=438) 14.2 seconds 11.7-14.7 INR (BEAKER) (test wkwg=511) 1.1 <=5.9 RECOMMENDED COUMADIN/WARFARIN INR THERAPY RANGESSTANDARD DOSE: 2.0 - 3.0 Includes: PROPHYLAXIS forvenous thrombosis, systemic embolization; TREATMENT for venous thrombosis and/or pulmonary embolus.HIGH RISK: Target INR is 2.5-3.5 for patients with mechanical heart valves.POCT-GLUCOSE [id number] 23:55:00 Test Item Value Reference Range Comments POC-GLUCOSE METER (BEAKER) 86 mg/dL 70-110 TESTED AT [address] (test nyso=1854) [place] [address] B-TYPE NATRIURETIC FACTOR (BNP)2017-04-22 18:13:00 Test Item Value Reference Range Comments B-TYPE NATRIURETIC PEPTIDE (BEAKER) (test 1203 pg/mL 0-100 ozvb=520) POCT-GLUCOSE [id number] 17:36:00 Test Item Value Reference Range Comments POC-GLUCOSE METER (BEAKER) 259 mg/dL 70-110 TESTED AT [address] (test erge=4194) [place] [id number] HEMOGLOBIN [id number] 14:24:00 Test Item Value Reference Range Comments HEMOGLOBIN A1C (BEAKER) (test qzti=720) 10.5 % 4.3-6.1 POCT-GLUCOSE [id number] 12:34:00 Test Item Value Reference Range Comments POC-GLUCOSE METER (BEAKER) 207 mg/dL 70-110 TESTED AT [facility] [address] (test vqsc=0756) [place] [address] [id number] 07:53:00 Test Item Value Reference Range Comments PHOSPHORUS (BEAKER) (test ipdl=475) 3.9 mg/dL 2.3-4.7 [id number] 07:53:00 Test Item Value Reference Range Comments MAGNESIUM (BEAKER) (test oygl=823) 1.6 mg/dL 1.6-2.6 BASIC METABOLIC [id number] 07:53:00 Test Item Value Reference Range Comments SODIUM (BEAKER) (test 139 meq/L 136-145 pjxc=137) POTASSIUM (BEAKER) (test 4.5 meq/L 3.5-5.1 fcyq=582) CHLORIDE (BEAKER) (test 108 meq/L 98-107 ltyl=779) CO2 (BEAKER) (test 25 meq/L 22-29 wxal=656) BLOOD UREA NITROGEN 29 mg/dL 7-21 (BEAKER) (test zzfl=145) CREATININE (BEAKER) (test 1.54 mg/dL 0.57-1.25 iodc=231) GLUCOSE RANDOM (BEAKER) 211 mg/dL 70-105 (test lqzy=877) CALCIUM (BEAKER) (test 8.5 mg/dL 8.4-10.2 aexm=736) EGFR (BEAKER) (test 34 mL/min/1.73 sq m ESTIMATED GFR IS NOT svxz=6253) ACCURATE CREATININE CLEARANCE IN PREDICTING GLOMERULAR FILTRATION RATE. ESTIMATED GFR IS NOT APPLICABLE FOR DIALYSIS PATIENTS. TROPONIN [id number] 07:29:00 Test Item Value Reference Range Comments TROPONIN I (BEAKER) (test kycu=172) 0.05 ng/mL 0.00-0.03 Troponin I (TnI) levels must be interpreted [...] failure, acidosis, acute neurological disease, and persistent tachyarrhythmia.PROTHROMBIN [id number] 07:01:00 Test Item Value Reference Range Comments PROTIME (BEAKER) (test sbmq=950) 13.8 seconds 11.7-14.7 INR (BEAKER) (test nqfg=398) 1.1 <=5.9 RECOMMENDED COUMADIN/WARFARIN INR THERAPY RANGESSTANDARD DOSE: 2.0 - 3.0 Includes: PROPHYLAXIS forvenous thrombosis, systemic embolization; TREATMENT for venous thrombosis and/or pulmonary embolus.HIGH RISK: Target INR is 2.5-3.5 for patients with mechanical heart valves.POCT-GLUCOSE [id number] 06:28:00 Test Item Value Reference Range Comments POC-GLUCOSE METER (BEAKER) 198 mg/dL 70-110 TESTED AT [address] (test qbwl=3752) [place] [address] CREATINE KINASE (CK), TOTAL AND [id number] 00:49:00 Test Item Value Reference Range Comments CREATINE KINASE TOTAL (BEAKER) (test gbbr=542) 69 U/L 29-200 CREATINE KINASE-MB (BEAKER) (test icyd=293) 4.3 ng/mL 0.0-6.6 CREATINE KINASE-MB INDEX (BEAKER) (test wbjp=453) 6.2 % CK-MB Reference Range:<6.7 Normal6.7-10.0 Borderline>10.0 AbnormalTROPONIN [id number] 00:49:00 Test Item Value Reference Range Comments TROPONIN I (BEAKER) (test qedo=063) 0.05 ng/mL 0.00-0.03 Troponin I (TnI) levels must be interpreted [...] failure, acidosis, acute neurological disease, and persistent tachyarrhythmia.POCT-GLUCOSE [id number] 20:44:00 Test Item Value Reference Range Comments POC-GLUCOSE METER (BEAKER) 269 mg/dL 70-110 TESTED AT [address] (test gnfg=8380) [place] [address]
[2017-07-28] MEDS ORDERED: NA CHLORIDE 0.9% 1,000 ML ONE (20:34)
[2017-07-28 20:38] LABS: Absolute Lymphocytes (CBC) 2.3 K/uL (0.7-4.9); Absolute Neutrophil 19.8 K/uL (1.8-8.0); Basophils % 0.4 % (0-1.3); Hematocrit 33.7 % (36.0-45.0); Lymphocytes % 9.9 % (15.3-44.8); MCH 24.1 pg (27.0-35.0); MCV 75.4 fL (80-100); MPV 8.2 fL (7.6-11.3); Monocytes % 4.4 % (3.3-12.3); RBC Red Blood Cell Count 4.47 M/uL (3.86-4.86)
[2017-07-28 20:41] LABS: Protime INR 1.23
[2017-07-28 20:48] LABS: Potassium 3.7 mEq/L (3.6-5.0)
--- NOTE | 2017-07-28 20:52 | RAD REPORT ---
EXAM DESCRIPTION: Butch Single View07/28/2017 8:27 pm CLINICAL HISTORY: fever COMPARISON: March 2017 FINDINGS: The lungs appear clear of acute infiltrate. The heart is mildly enlarged. Postsurgical changes involve the chest. IMPRESSION: No acute abnormalities displayed
[2017-07-28 20:54] LABS: Albumin 3.3 g/dL (3.2-5.5); Bilirubin Direct 0.1 mg/dL (0-0.2); Bilirubin Total 0.6 mg/dL (0.3-1.2); Magnesium 1.6 mg/dL (1.8-2.5); Protein, Total 8.1 g/dL (6.0-8.3)
[2017-07-28 20:57] LABS: CKMB Creatine Kinase MB 2.1 ng/ml (0.3-4.0)
[2017-07-28 21:09] LABS: Blood Morphology Comment NOT SEEN (NOT SEEN); Platelet Estimate ADEQ; Toxic Granulation 1+
[2017-07-28] MEDS ORDERED: ONDANSETRON 4 MG/2 ML VIAL ONE (21:20)
[2017-07-28] MEDS ORDERED: MEPERIDINE HCL 25 MG/0.5 ML ONE (21:20)
--- NOTE | 2017-07-28 21:36 | ER ---
Nurse's Notes [facility] Name: Christy Priest Age: 62 yrs Sex: Female : 1955 Arrival Date: 07/28/2017 Time: 19:47 Bed 16 Private MD: Diagnosis: Acute febrile illness. Leukocytosis. Generalized weakness. Chronic renal disease. Elevated Troponin Presentation: 07/28 19:48 Presenting complaint: EMS states: SHE HAD A FEVER AND FELT WEAK AND DIZZY. Transition bp of care: patient was not received from another setting of care. Onset of symptoms is unknown. Initial Sepsis Screen: Does the patient meet any 2 criteria? Temp <36.0*C (96.8*F)) or > 38.3*C (100.4*F). No. Patient's initial sepsis screen is negative. Does the patient have a suspected source of infection? No. Patient's initial sepsis screen is negative. Care prior to arrival: Glucose check: 175. 19:48 Method Of Arrival: EMS: [facility] bp 19:48 Acuity: DENNY 3 bp Historical: - Allergies: 20:25 Augmentin; bs1 20:25 Morphine; bs1 20:25 Nitroglycerin; bs1 20:25 Tramadol HCl; bs1 20:25 Vancomycin; bs1 20:25 basil; bs1 20:25 trazodone; bs1 - Home Meds: 20:25 gabapentin 100 mg Oral cap 1 caps 3 times per day [Active]; metoprolol tartrate 50 mg bs1 Oral tab 1 tab 2 times per day [Active]; metformin 750 mg Oral Tb24 2 tabs once daily [Active]; atorvastatin 40 mg Oral tab 1 tab once daily [Active]; Lasix 40 mg Oral tab 1 tab 2 times per day [Active]; fenofibrate 145 MG Oral 1 tab once daily [Active]; Plavix 75 mg Oral tab 1 tab once daily [Active]; Tylenol #3 Oral [Active]; torsemide oral oral [Active]; metolazone 2.5 mg oral tab [Active]; Nicotine TD [Active]; ProAir HFA 90 mcg/actuation inhalation HFAA as needed [Active]; Levemir 100 unit/mL subcutaneous soln [Active]; lisinopril 40 mg Oral tab 1 tab once daily [Active]; Hydralazine Oral [Active]; Santyl Topical [Active]; Nifedipine Oral [Active]; Isosorbide Mononitrate Oral [Active]; - PMHx: 20:25 CHF; COPD; Diabetes - IDDM; High Cholesterol; Hypertension; uterine cancer; triple bs1 bypass; - PSHx: 20:25 CABG; bs1 - Immunization history:: Adult Immunizations up to date. - Social history:: Smoking status: Patient uses tobacco products, denies chronic smoking, but will smoke occasionally. Screenin:31 Abuse screen: Denies threats or abuse. Denies injuries from another. Nutritional bs1 screening: No deficits noted. Tuberculosis screening: No symptoms or risk factors identified. Fall Risk None identified. Assessment: 20:00 General: Appears uncomfortable, ill, Behavior is cooperative, flat, Reports fever for bs1 0-12 hours, feeling ill for 1-2 days, fatigue for 1-2 days. Pain: Complains of pain in left lower abdomen Pain does not radiate. Pain currently is 7 out of 10 on a pain scale. Quality of pain is described as aching. Neuro: Level of Consciousness is awake, alert, obeys commands, Oriented to person, place, situation, Speech is normal, Facial symmetry appears normal, Pupils are PERRLA, Reports dizziness, headache weakness Denies blurred vision difficulty swallowing, numbness. Neuro: Intact Patient reports fever that started today, dizziness for about 2 days, patient reports falling today due to dizziness, fell from a standing position, denies hitting head or any LOC, patient also reports left lower quad abdominal pain. Hx of open heart surgery x1 month ago, scar noted to mid chest. Cardiovascular: Denies chest pain, nausea, palpitations, shortness of breath, Heart tones S1 S2 present Capillary refill < 3 seconds Patient's skin is warm and dry. Cardiovascular: Edema pitting to left ankle, left foot, right ankle and right foot. Respiratory: Reports shortness of breath at rest on exertion cough that is non-productive, Airway is patent Trachea midline Respiratory effort is even, Respiratory pattern is regular, Breath sounds are coarse bilaterally. GI: Abdomen is round Bowel sounds present X 4 quads. Abdomen is tender to palpation in left lower quadrant Reports lower abdominal pain, nausea, Patient currently denies bloody stool, rectal bleeding. : Urine is cloudy, Denies burning with urination, urinary frequency. EENT: No deficits noted. No signs and/or symptoms were reported regarding the EENT system. Derm: Skin has skin tears on bilateral arms Bruising that is on right arm and left arm. Musculoskeletal: Circulation, motion, and sensation intact. Capillary refill < 3 seconds, Range of motion: intact in all extremities. 21:35 Reassessment: Decreased NS 125ml/hr to 75ml/hr per verbal order from Dr Velázquez. bs1 22:41 Reassessment: No changes from previously documented assessment. Patient and/or family bs1 updated on plan of care and expected duration. Pain level reassessed. Patient is alert, oriented x 3, equal unlabored respirations, skin warm/dry/pink. 23:45 Reassessment: Patient appears in no apparent distress at this time. Patient and/or bs1 family updated on plan of care and expected duration. Pain level reassessed. Patient is alert, oriented x 3, equal unlabored respirations, skin warm/dry/pink. 07/29 00:45 Reassessment: Patient appears in no apparent distress at this time. Patient and/or bs1 family updated on plan of care and expected duration. Pain level reassessed. Patient is alert, oriented x 3, equal unlabored respirations, skin warm/dry/pink. 01:45 Reassessment: Patient appears in no apparent distress at this time. Patient and/or bs1 family updated on plan of care and expected duration. Pain level reassessed. Patient is alert, oriented x 3, equal unlabored respirations, skin warm/dry/pink. 2L NC applied. Patients oxygen saturation 90% on room air, increased to 94%. Vital Signs: 07/28 21:20 BP 187 / 84; Pulse 86; Resp 16; Temp 100.9; Pulse Ox 97% on R/A; Weight 71.21 kg; bs1 Height 5 ft. 7 in. (170.18 cm); Pain 7/10; 21:29 BP 184 / 76; Pulse 87; Resp 16; Pulse Ox 99% on R/A; mt 22:00 BP 157 / 74; Pulse 82; Resp 18; Pulse Ox 99% on R/A; Pain 5/10; bs1 23:08 BP 167 / 72; Pulse 77; Resp 16; Pulse Ox 99% on R/A; mt 07/29 00:04 Temp 100.7(O); bs1 01:43 BP 154 / 63; Pulse 67; Resp 19; Pulse Ox 90% on R/A; Pain 0/10; bs1 01:45 Pulse Ox 94% on 2 lpm NC; bs1 02:14 BP 154 / 63; Pulse 73; Resp 18 S; Temp 99.0(O); Pulse Ox 94% on 2 lpm NC; bs1 07/28 21:20 Body Mass Index 24.59 (71.21 kg, 170.18 cm) bs1 ED Course: 07/28 19:47 Patient arrived in ED. bp 19:48 Marco Velázquez MD is Attending Physician. pkl 19:49 Triage completed. bp 19:55 Inserted saline lock: 20 gauge in right forearm, using aseptic technique. bs1 19:55 Patient maintains SpO2 saturation greater than 95% on room air. bs1 19:58 EKG done, by ED staff, reviewed by Marco Velázquez MD. mt 20:00 Patient has correct armband on for positive identification. Placed in gown. Bed in low bs1 position. Call light in reach. Side rails up X 1. quality assurance monitor final on. Pulse ox on. NIBP on. 20:00 Warm blanket given. bs1 20:11 Camila eLwis, GUILHERME is Primary Nurse. bs1 20:26 X-ray completed. Portable x-ray completed in exam room. Patient tolerated procedure kc2 well. 20:27 XRAY Chest (1 view) In Process Unspecified. EDMS 20:38 Greene cath inserted, using sterile technique, 16 Fr., by dc, balloon inflated, to mt gravity drainage. 20:58 Notified ED physician of a critical lab result(s). wbc- 23.2. bs1 21:30 Notified ED physician of other C/o pain, Verbal order to give demerol 25mg IVP, zofran bs1 4mg IVP x1. Blood pressure 185/83. 21:34 Maria De Jesus Merrill MD is Hospitalizing Provider. pkl 22:31 Arm band placed on placed. EKG completed in triage. Results shown to MD. bs1 22:33 No provider procedures requiring assistance completed. bs1 07/29 01:27 CT completed. Patient tolerated procedure well. Patient moved to CT via stretcher. Patient moved back from CT. 02:36 Patient admitted, IV remains in place. intact. bs1 Administered Medications: 07/28 20:43 Drug: NS 0.9% 1000 ml Route: IV; Rate: 125 ml/hr; Site: right antecubital; bs1 22:33 Follow up: IV Status: Infusion continued upon admission bs1 21:34 Drug: Zofran 4 mg Route: IVP; Site: right antecubital; bs1 22:33 Follow up: Response: No adverse reaction bs1 21:35 Drug: Demerol 25 mg Route: IVP; Site: right antecubital; bs1 22:33 Follow up: Response: No adverse reaction bs1 Outcome: 21:36 Decision to Hospitalize by Provider. pkl 07/29 02:34 Admitted to Tele accompanied by tech, via stretcher, room 407, with chart, Report bs1 called to GUILHERME [place] Condition: stable Instructed on the need for admit, Demonstrated understanding of instructions. 02:42 Patient left the ED. bs1 Signatures: Dispatcher [employer] EDMS Marco Velázquez MD MD [facility] [place] [facility] Jose Cruz Meyer RN RN bp Camila Lewis RN RN bs1 Corrections: (The following items were deleted from the chart) 07/28 20:28 20:25 Allergies: HYDRALAZINE; bs1 bs1 22:23 21:20 BP 187 / 84; Pulse 86bpm; Resp 16bpm; Pulse Ox 97% RA; mt bs1
--- NOTE | 2017-07-28 21:36 | EDPHYS ---
Physician Documentation [facility] Name: Christy Priest Age: 62 yrs Sex: Female : 1955 Arrival Date: 07/28/2017 Time: 19:47 Bed 16 Private MD: ED Physician Marco Velázquez HPI: 07/28 20:47 This 62 yrs old Female presents to ER via EMS with complaints of General pkl Weakness, Dizziness, Fever. 20:47 The patient presents with dizziness, feeling faint, generalized weakness. Onset: The pkl symptoms/episode began/occurred 2 day(s) ago. Associated signs and symptoms: Pertinent positives: fever, decrease appetite. Historical: - Allergies: 20:25 Augmentin; bs1 20:25 Morphine; bs1 20:25 Nitroglycerin; bs1 20:25 Tramadol HCl; bs1 20:25 Vancomycin; bs1 20:25 basil; bs1 20:25 trazodone; bs1 - Home Meds: 20:25 gabapentin 100 mg Oral cap 1 caps 3 times per day [Active]; metoprolol tartrate 50 mg bs1 Oral tab 1 tab 2 times per day [Active]; metformin 750 mg Oral Tb24 2 tabs once daily [Active]; atorvastatin 40 mg Oral tab 1 tab once daily [Active]; Lasix 40 mg Oral tab 1 tab 2 times per day [Active]; fenofibrate 145 MG Oral 1 tab once daily [Active]; Plavix 75 mg Oral tab 1 tab once daily [Active]; Tylenol #3 Oral [Active]; torsemide oral oral [Active]; metolazone 2.5 mg oral tab [Active]; Nicotine TD [Active]; ProAir HFA 90 mcg/actuation inhalation HFAA as needed [Active]; Levemir 100 unit/mL subcutaneous soln [Active]; lisinopril 40 mg Oral tab 1 tab once daily [Active]; Hydralazine Oral [Active]; Santyl Topical [Active]; Nifedipine Oral [Active]; Isosorbide Mononitrate Oral [Active]; - PMHx: 20:25 CHF; COPD; Diabetes - IDDM; High Cholesterol; Hypertension; uterine cancer; triple bs1 bypass; - PSHx: 20:25 CABG; bs1 - Immunization history:: Adult Immunizations up to date. - Social history:: Smoking status: Patient uses tobacco products, denies chronic smoking, but will smoke occasionally. ROS: 20:47 Eyes: Negative for injury, pain, redness, and discharge, ENT: Negative for injury, pkl pain, and discharge, Neck: Negative for injury, pain, and swelling, Cardiovascular: Negative for chest pain, palpitations, and edema, Respiratory: Negative for shortness of breath, cough, wheezing, and pleuritic chest pain, Abdomen/GI: Negative for abdominal pain, nausea, vomiting, diarrhea, and constipation, Back: Negative for injury and pain, : Negative for injury, bleeding, discharge, and swelling, MS/Extremity: Negative for injury and deformity, Skin: Negative for injury, rash, and discoloration. 20:47 Neuro: Positive for dizziness, generalized weakness. Exam: 20:47 Head/Face: Normocephalic, atraumatic. Eyes: Pupils equal round and reactive to light, pkl extra-ocular motions intact. Lids and lashes normal. Conjunctiva and sclera are non-icteric and not injected. Cornea within normal limits. Periorbital areas with no swelling, redness, or edema. ENT: Nares patent. No nasal discharge, no septal abnormalities noted. Tympanic membranes are normal and external auditory canals are clear. Oropharynx with no redness, swelling, or masses, exudates, or evidence of obstruction, uvula midline. Mucous membranes moist. Neck: Trachea midline, no thyromegaly or masses palpated, and no cervical lymphadenopathy. Supple, full range of motion without nuchal rigidity, or vertebral point tenderness. No Meningismus. Chest/axilla: Normal chest wall appearance and motion. Nontender with no deformity. No lesions are appreciated. Cardiovascular: Regular rate and rhythm with a normal S1 and S2. No gallops, murmurs, or rubs. Normal PMI, no JVD. No pulse deficits. Respiratory: Lungs have equal breath sounds bilaterally, clear to auscultation and percussion. No rales, rhonchi or wheezes noted. No increased work of breathing, no retractions or nasal flaring. Abdomen/GI: Soft, non-tender, with normal bowel sounds. No distension or tympany. No guarding or rebound. No evidence of tenderness throughout. Back: No spinal tenderness. No costovertebral tenderness. Full range of motion. Skin: Warm, dry with normal turgor. Normal color with no rashes, no lesions, and no evidence of cellulitis. MS/ Extremity: Pulses equal, no cyanosis. Neurovascular intact. Full, normal range of motion. Neuro: Awake and alert, GCS 15, oriented to person, place, time, and situation. Cranial nerves II-XII grossly intact. Motor strength 5/5 in all extremities. Sensory grossly intact. Cerebellar exam normal. Normal gait. Vital Signs: 21:20 BP 187 / 84; Pulse 86; Resp 16; Temp 100.9; Pulse Ox 97% on R/A; Weight 71.21 kg; bs1 Height 5 ft. 7 in. (170.18 cm); Pain 7/10; 21:29 BP 184 / 76; Pulse 87; Resp 16; Pulse Ox 99% on R/A; mt 22:00 BP 157 / 74; Pulse 82; Resp 18; Pulse Ox 99% on R/A; Pain 5/10; bs1 23:08 BP 167 / 72; Pulse 77; Resp 16; Pulse Ox 99% on R/A; mt 05 00:04 Temp 100.7(O); bs1 01:43 BP 154 / 63; Pulse 67; Resp 19; Pulse Ox 90% on R/A; Pain 0/10; bs1 01:45 Pulse Ox 94% on 2 lpm NC; bs1 02:14 BP 154 / 63; Pulse 73; Resp 18 S; Temp 99.0(O); Pulse Ox 94% on 2 lpm NC; bs1 07/28 21:20 Body Mass Index 24.59 (71.21 kg, 170.18 cm) bs1 MDM: 07/28 19:48 Patient medically screened. pkl 21:34 Data reviewed: vital signs, nurses notes, lab test result(s), EKG, radiologic studies, pkl plain films. 07/28 20:12 Order name: Basic Metabolic Panel; Complete Time: : pkl 07/28 20:12 Order name: BNP; Complete Time: : pkl 07/28 20:12 Order name: CBC with Diff; Complete Time: 21:19 pkl 07/28 20:12 Order name: Ckmb; Complete Time: : pkl 07/28 20:12 Order name: CPK; Complete Time: :19 pkl 07/28 20:12 Order name: LFT's; Complete Time: 21:19 pkl 07/28 20:12 Order name: Magnesium; Complete Time: 21:19 pkl 07/28 20:12 Order name: PT-INR; Complete Time: 21:19 pkl 07/28 20:12 Order name: Ptt, Activated; Complete Time: 21:19 pkl 07/28 20:12 Order name: Troponin (emerg Dept Use Only); Complete Time: 21: pkl 07/28 20:12 Order name: Amylase, Serum; Complete Time: 21: pkl 07/28 20:12 Order name: Lipase; Complete Time: 21:19 pkl 07/28 20:12 Order name: Blood Culture Adult (2) pkl 07/28 20:12 Order name: Sed Rate; Complete Time: 21:19 pkl 07/28 20:12 Order name: XRAY Chest (1 view); Complete Time: 21:19 pkl 07/28 20:12 Order name: EKG; Complete Time: 20:13 pkl 07/28 20:12 Order name: Cardiac monitoring; Complete Time: 21:42 pkl 07/28 20:12 Order name: EKG - Nurse/Tech; Complete Time: 21:42 pkl 07/28 20:12 Order name: IV Saline Lock; Complete Time: 21:42 pkl 07/28 20:12 Order name: Labs collected and sent; Complete Time: 21:42 pkl 07/28 20:12 Order name: O2 Per Protocol; Complete Time: 21:42 pkl 07/28 20:12 Order name: O2 Sat Monitoring; Complete Time: 21:42 pkl 07/28 20:12 Order name: Urine Dipstick-Ancillary (obtain specimen); Complete Time: 23:36 pkl 07/28 20:12 Order name: Greene; Complete Time: 20:38 pkl 07/28 20:12 Order name: Lactate; Complete Time: 21:19 pkl 07/28 20:51 Order name: Manual Differential; Complete Time: 21:19 EDMS 07/28 20:56 Order name: Urine Dipstick--Ancillary (enter results); Complete Time: 05:48 em1 Administered Medications: 20:43 Drug: NS 0.9% 1000 ml Route: IV; Rate: 125 ml/hr; Site: right antecubital; bs1 22:33 Follow up: IV Status: Infusion continued upon admission bs1 21:34 Drug: Zofran 4 mg Route: IVP; Site: right antecubital; bs1 22:33 Follow up: Response: No adverse reaction bs1 21:35 Drug: Demerol 25 mg Route: IVP; Site: right antecubital; bs1 22:33 Follow up: Response: No adverse reaction bs1 Disposition: 07/28/17 21:36 Hospitalization ordered by Maria De Jesus Merrill for Observation. Preliminary diagnosis is Acute febrile illness. Leukocytosis. Generalized weakness. Chronic renal disease. Elevated Troponin. - Bed requested for Telemetry/MedSurg (observation). - Status is Observation. bs1 - Condition is Stable. - Problem is new. - Symptoms are unchanged. UTI on Admission? No Signatures: Dispatcher [employer] EDMS Susan Au RN RN Marco Velázquez MD MD pkl Salazar, Brittany, RN RN bs1 Corrections: (The following items were deleted from the chart) 20:28 20:25 Allergies: HYDRALAZINE; bs1 bs1
[2017-07-28 21:38] LABS: Urine Blood 1+ (NEG); Urine Glucose TRACE (NEG); Urine Protein 3+ (NEG); Urine pH 5.5 (5.0-7.0)
[2017-07-28] MEDS ORDERED: ACETAMINOPHEN 500 MG TAB PO ONE (22:53)
[2017-07-29] MEDS ORDERED: ONDANSETRON 4 MG/2 ML VIAL IV PRN (02:47)
[2017-07-29] MEDS ORDERED: ACETAMINOPHEN 500 MG TAB PO PRN (02:47)
[2017-07-29] MEDS: NA CHLORIDE 0.9% 1,000 ML IV SCH ×3 (03:00→23:00)
[2017-07-29] MEDS: METRONIDAZOLE 500mg IVPB 500 MG/100 ML BAG IV SCH ×3 (03:45→18:05)
[2017-07-29 05:04] VITALS: BMI 24.5
[2017-07-29] MEDS ORDERED: MAGNESIUM SULFATE 1 gm IVPB 1 GM/100 ML BAG IV ONE (05:24)
[2017-07-29] MEDS ORDERED: POTASSIUM 25 MEQ EFFERV TAB PO ONE (05:26)
[2017-07-29] MEDS: CIPROFLOXACIN 400mg IV 400 MG/200 ML BAG IV SCH (05:46)
--- NOTE | 2017-07-29 05:57 | P.HP ---
Certification for Inpatient Patient admitted to: Inpatient With expected LOS: >2 Midnights Practitioner: I am a practitioner with admitting privileges, knowledge of patient current condition, hospital course, and medical plan of care. Services: Services provided to patient in accordance with Admission requirements found in Title 42 Section 412.3 of the Code of Federal Regulations Patient History Date of Service: 07/28/17 Reason for admission: abdominal pain, fever History of Present Illness: Ms Priest is a 62 years old woman with history of CAD s/p CABG few month ago, IDDM , HTN, COPD who start about 2 days ago with abdominal pain, localized on epigastrium and left upper quadrant. It was associated with fever 100.4F, weakness and dizziness. She denied nausea or vomiting. No diarrhea either. Last time she had a bowel movement was yesterday. She denied cough or SOB, no burning urination. Work up in ED shows leukocytosis with bandemia, elevated ESR , elevated tropoinin I in context of worsening renal fuction. CT abd/pelvis remarkable for thickening of the wall of the terminal illum, however, similar to a CT scan in 2015. At my encounter, she felt very poor, and was still complaining of abdominal pain. Allergies morphine Allergy (Severe, Verified 07/29/17 03:02) Anaphylaxis amoxicillin [From Augmentin] Allergy (Verified 07/29/17 03:02) Unknown basil Allergy (Verified 07/29/17 03:02) Unknown clavulanic acid [From Augmentin] Allergy (Verified 07/29/17 03:02) Unknown trazodone Allergy (Verified 07/29/17 03:02) Unknown vancomycin Allergy (Verified 07/29/17 03:02) Unknown nitroglycerin Adverse Reaction (Mild, Verified 07/29/17 03:02) Nausea/Vomiting tramadol Adverse Reaction (Mild, Verified 07/29/17 03:02) Nausea/Vomiting Tramadol HCl Allergy (Uncoded 07/29/17 03:02) Unknown Home Medications: Aspirin Tab [Supa Aspirin*] 81 mg PO DAILY 04/28/15 Clopidogrel Bisulfate [Plavix] 75 mg PO DAILY 04/28/15 Insulin Detemir [Levemir Flextouch] 5 unit SQ DAILY 04/28/15 Atorvastatin Calcium [Lipitor] 40 mg PO DAILY 02/03/17 Codeine/APAP [Tylenol #3*] 1 tab PO Q8H PRN 02/03/17 Gabapentin [Neurontin*] 100 mg PO TID 02/03/17 Carvedilol [Carvedilol] 1 tab PO BID 07/29/17 Collagenase [Santyl Ointment*] 1 dose TOP DAILY 07/29/17 Fluticasone [Flovent Hfa 110*] 1 puff IH BID 07/29/17 Hydralazine HCl [Apresoline] 50 mg PO Q8HR 07/29/17 Ipratropium/Albuterol Sulfate [Combivent Respimat Inhal Tsaile] 2 puff IH Q6HR Melatonin 10 mg PO BEDTIME PRN 07/29/17 Nicotine [Nicotine Patch] 1 each TD DAILY 07/29/17 - Past Medical/Surgical History Has patient received pneumonia vaccine in the past: Yes Diabetic: Yes -: COPD -: HTN -: CAD -: DM -: IL -: cHF -: uterine cancer -: Sleep Apnea -: DM -: IL -: rectal sx -: hysterectomy -: ja -: stomach stapling -: appy -: ANGIOPLASTY -: Quaduple bypass - Family History Father -: Heart disease, Hypertension, Stroke, Cancer Mother -: GI disease Sister -: Lung disease, Diabetes Brother -: Heart disease, Hypertension, Stroke - Social History Smoking Status: Former smoker Smoking therapy provided: Yes Alcohol use: No CD- Drugs: No Caffeine use: No Place of Residence: Home Review of Systems 10-point ROS is otherwise unremarkable Physical Examination - Vital Signs Temperature: 98.4 F Blood Pressure: 158/68 Pulse: 63 Respirations: 16 Pulse Ox (%): 98 - Physical Exam General: Alert, Mild distress (due to fever and weakness) HEENT: Atraumatic, PERRLA, Mucous membr. moist/pink, EOMI, Sclerae nonicteric Neck: Supple, 2+ carotid pulse no bruit, No LAD, Without JVD or thyroid abnormality Respiratory: Clear to auscultation bilaterally, Normal air movement Cardiovascular: Regular rate/rhythm, Normal S1 S2 Gastrointestinal: Normal bowel sounds, Tenderness (tender to palpation epigastrium and LUQ) Musculoskeletal: No tenderness Integumentary: No rashes Neurological: Normal speech, Normal strength at 5/5 x4 extr, Normal tone, Normal affect Lymphatics: No axilla or inguinal lymphadenopathy - Studies Laboratory Data (last 24 hrs) 07/28/17 19:55: PT 14.5 H, INR 1.23, APTT 30.1 07/28/17 19:55: WBC 23.2 H*, Hgb 10.8 L, Hct 33.7 L, Plt Count 257 07/28/17 19:55: B-Natriuretic Peptide 2237 H 07/28/17 19:55: Sodium 133 L, Potassium 3.7, BUN 58 H, Creatinine 2.18 H, Glucose 178 H, Magnesium 1.6 L, Total Bilirubin 0.6, AST 24, ALT 14, Alkaline Phosphatase 126 H, Amylase 52, Lipase 17 L Assessment and Plan - Problems (Diagnosis) (1) Sepsis Current Visit: Yes Status: Acute Qualifiers: Sepsis type: sepsis due to unspecified organism Qualified Code(s): A41.9 - Sepsis, unspecified organism (2) Enteritis Current Visit: Yes Status: Acute (3) CHF (congestive heart failure) Onset Date: 04/28/15 Current Visit: No Status: Chronic Qualifiers: Qualified Code(s): I50.9 - Heart failure, unspecified (4) COPD (chronic obstructive pulmonary disease) Onset Date: 02/04/17 Current Visit: No Status: Chronic Qualifiers: COPD type: chronic bronchitis Chronic bronchitis type: mixed simple and mucopurulent Qualified Code(s): J41.8 - Mixed simple and mucopurulent chronic bronchitis (5) Coronary arteriosclerosis Onset Date: 09/09/16 Current Visit: No Status: Chronic (6) Diabetes mellitus Onset Date: 04/28/15 Current Visit: No Status: Chronic - Plan The patient will be admitted to the hospital due to sepsis. No clear source of infection other than possible enteritis. Will order empiric cipro and flagyl, consult GI, there is a concern for possible Crohn's disease, however, unlikely due to age of presentation. Will resume home medication once verified. - Advance Directives Does patient have a Living Will: No Does patient have a Durable POA for Healthcare: Yes - Code Status/Comfort Care Code Status Assessed: Yes Code Status: Full Code
--- NOTE | 2017-07-29 06:54 | RAD REPORT ---
EXAM DESCRIPTION: CT - Abdomen Pelvis Wo Contrast - 07/29/2017 4:06 am CLINICAL HISTORY: Abdominal pain, fever, weakness, history of uterine cancer A preliminary written report was provided at the time of the study, and the report was reviewed prio r to final dictation. COMPARISON: CT March 2017 TECHNIQUE: Axial [address] imaging of the abdomen and pelvis was performed without IV contrast. No IV contrast was given because of allergy, abnormal renal function, patient refusal or physician re quest. Oral contrast was given. All CT scans are performed using dose optimization technique as appropriate and may include automated exposure control or mA/KV adjustment according to patient size. FINDINGS: Minimal bilateral pleural effusions are present. Right-sided pleural effusion has signific antly decreased from the prior study. Cardiac silhouette is enlarged. The heart is only partially clarisa ged. Pericardial effusion has improved since March. Very little pericardial fluid or thickening cur rently present. The liver, spleen and pancreas show no suspicious findings on non-contrast imaging. No biliary tree d ilatation. Gallbladder is not identified and presumed absent. No cholecystectomy clips are seen. No hydronephrosis or suspicious renal mass. No significant adrenal finding. Isodense renal masses an d pyelonephritis cannot be excluded in the absence of IV contrast. Urinary bladder is fully contracte d around a Greene catheter. Uterus is absent. Ovaries are absent or atrophic. Gastric surgical changes are noted. Gastric mccormack are difficult to assess. There is no contrast, flui d or fluid within the lumen. Small bowel loops are not dilated. Oral CT contrast has reached the sigm oid colon. Moderate stool volume is present throughout the sigmoid colon and rectum. Focal narrowing at the hepatic flexure is believed to be a peristalsis artifact. Apple-core type mass can be monitore d with follow-up CT imaging or BE/colonoscopy studies. Appendix is normal. No free air or pneumatosis. Trace amounts of free fluid are present in the peritoneal cavity. These a re nonspecific. No hernia, mass or bulky lymphadenopathy. A few small periaortic lymph nodes are sim ilar to prior imaging. Disc and bony degenerative changes are present. Dense vascular calcifications are seen. Vascular asse ssment is limited in the absence of IV contrast. IMPRESSION: No bowel obstruction or other surgically emergent finding. Circumferential narrowing of the hepatic flexure the colon is present. This is probably a peristalsis artifact. Follow-up is needed. Repeat common limited CT imaging through this region could be perform ed in would not require any bowel prep or bowel cleaning. Otherwise colonoscopy or barium enema exami nation is could be used for clearing this region. Moderately large stool volume is present distending but not dilating rectosigmoid colon. Trace amount of ascites and trace bilateral pleural effusions. Minimal stranding in the left base is favored to be atelectasis. Full assessment is limited is the absence of IV contrast.
[2017-07-29] MEDS: INSULIN -REGULAR HUMAN 50 UNIT/0.5 ML ML SQ SCH ×4 (07:30→21:00)
[2017-07-29] MEDS: NICOTINE 21 MG/PAT TD SCH (09:56)
--- NOTE | 2017-07-29 14:39 | EKG ---
Test Date: 2017-07-28 Test Time: 19:52:53 Projection Engineer: JEFRY MEASUREMENT RESULTS: Intervals: Rate: 75 MS: 172 QRSD: 106 QT: 398 QTc: 444 Coral: P: 74 MS: 172 QRS: 64 T: 130 INTERPRETIVE STATEMENTS: Normal sinus rhythm Possible Left atrial enlargement Anterior infarct, age undetermined ST & T wave abnormality, consider lateral ischemia Abnormal ECG Compared to ECG 04/21/2017 10:08:45 Myocardial infarct finding now present ST (T wave) deviation now present Ventricular premature complex(es) no longer present T-wave abnormality no longer present Prolonged QT interval no longer present Possible ischemia still present Electronically Signed On 07-29-17 14:34:28 CDT by Taj Raymond
--- NOTE | 2017-07-29 15:21 | P.PN ---
Subjective Date of Service: 07/29/17 Chief Complaint: abdominal pain, fever Subjective: No new changes, Tolerating diet Review of Systems General: Unremarkable Eyes: Unremarkable ENT: Unremarkable Respiratory: Unremarkable Cardiovascular: Unremarkable Gastrointestinal: Abdominal Pain, Diarrhea Genitourinary: Unremarkable Musculoskeletal: Back Pain Integumentary: Unremarkable Neurological: Unremarkable Physical Examination - Vital Signs Temperature: 99.3 F Blood Pressure: 177/81 Pulse: 67 Respirations: 16 Pulse Ox (%): 95 - Physical Exam General: Alert, In no apparent distress, Oriented x3, Cooperative HEENT: Atraumatic, Normocephalic, PERRLA Neck: Supple, JVD not distended, No Thyromegaly, No LAD Respiratory: Clear to auscultation bilaterally, Normal air movement Cardiovascular: No edema, Normal pulses, Regular rate/rhythm, Normal S1 S2 Gastrointestinal: Normal bowel sounds, Non-distended, W/out hepatosplenomegaly, Tenderness (epigstric and towards pelvic region) Musculoskeletal: No clubbing, No swelling, No contractures, No erythema, No tenderness, No warmth Neurological: Sensation intact - Studies Laboratory Data (last 24 hrs) 07/28/17 19:55: PT 14.5 H, INR 1.23, APTT 30.1 07/28/17 19:55: WBC 23.2 H*, Hgb 10.8 L, Hct 33.7 L, Plt Count 257 07/28/17 19:55: B-Natriuretic Peptide 2237 H 07/28/17 19:55: Sodium 133 L, Potassium 3.7, BUN 58 H, Creatinine 2.18 H, Glucose 178 H, Magnesium 1.6 L, Total Bilirubin 0.6, AST 24, ALT 14, Alkaline Phosphatase 126 H, Amylase 52, Lipase 17 L Assessment And Plan - Current Problems (Diagnosis) (1) Enteritis Onset Date: 07/29/17 Current Visit: Yes Status: Acute Plan: add cirpofloxacin IV continue metronidazole continue IV hydration clear liquids advance diet as tolerated follow stool studies (2) [id number] kidney injury Onset Date: 09/09/16 Current Visit: No Status: Acute Plan: hold lisinopril monitor BUN/CR renally dose medications continue IV hydration Qualifiers: Acute renal failure type: unspecified Chronic kidney disease stage: stage 3 (moderate) Qualified Code(s): N17.9 - Acute kidney failure, unspecified; N18.3 - Chronic kidney disease, stage 3 (moderate) (3) Hypertension Current Visit: Yes Status: Acute Plan: start amlodipine po adjust medications as needed for proper BP control (4) Chronic back pain greater than 3 months duration Current Visit: Yes Status: Acute Plan: resume home meds Discharge Plan: Home - Code Status/Comfort Care Code Status Assessed: Yes Code Status: Full Code Physician Review: Patient Assessed, Agree with Above Assessment and Plan
[2017-07-29] MEDS ORDERED: D50W 25 GM/50 ML SYRINGE IV PRN (15:36)
[2017-07-29] MEDS ORDERED: GLUCAGON 1 MG/VIAL IM PRN (15:36)
[2017-07-29] MEDS: AMLODIPINE 5 MG TAB PO SCH (18:05)
[2017-07-29] MEDS: CODEINE 30MG/APAP 300MG TAB PO PRN (18:05)
[2017-07-29] MEDS: PROMOD 30 ML DOSE PO SCH (20:58)
[2017-07-29] MEDS: GABAPENTIN 100 MG CAP PO SCH (20:59)
[2017-07-30] MEDS ORDERED: MELATONIN 5 MG TABLET PO PRN (01:13)
[2017-07-30] MEDS ORDERED: MELATONIN 5 MG TABLET PO ONE (01:46)
[2017-07-30] MEDS: METRONIDAZOLE 500mg IVPB 500 MG/100 ML BAG IV SCH ×3 (02:03→18:32)
[2017-07-30 05:33] LABS: Absolute Lymphocytes (CBC) 2.6 K/uL (0.7-4.9); Absolute Monocytes 1.3 K/uL (0.1-1.3); Absolute Neutrophil 14.5 K/uL (1.8-8.0); Basophils % 0.7 % (0-1.3); Eosinophils % 0.5 % (0-4.4); Hematocrit 28.6 % (36.0-45.0); Lymphocytes % 14.1 % (15.3-44.8); MCH 23.7 pg (27.0-35.0); MCV 75.5 fL (80-100); Monocytes % 7.2 % (3.3-12.3); RBC Red Blood Cell Count 3.79 M/uL (3.86-4.86)
[2017-07-30] MEDS: CIPROFLOXACIN 400mg IV 400 MG/200 ML BAG IV SCH (05:34)
[2017-07-30 05:43] LABS: Albumin 2.5 g/dL (3.2-5.5); Bilirubin Total 0.4 mg/dL (0.3-1.2); Magnesium 1.8 mg/dL (1.8-2.5); Potassium 3.5 mEq/L (3.6-5.0); Protein, Total 6.6 g/dL (6.0-8.3)
[2017-07-30] MEDS: INSULIN -REGULAR HUMAN 50 UNIT/0.5 ML ML SQ SCH ×4 (07:30→20:32)
[2017-07-30] MEDS: GABAPENTIN 100 MG CAP PO SCH ×3 (08:50→20:29)
[2017-07-30] MEDS: AMLODIPINE 5 MG TAB PO SCH (08:51)
[2017-07-30] MEDS: NICOTINE 21 MG/PAT TD SCH (08:51)
[2017-07-30] MEDS: NA CHLORIDE 0.9% 1,000 ML IV SCH ×2 (08:52→18:33)
[2017-07-30] MEDS: CODEINE 30MG/APAP 300MG TAB PO PRN ×2 (08:53→20:29)
[2017-07-30] MEDS ORDERED: MAGNESIUM SULFATE 1 gm IVPB 1 GM/100 ML BAG IV ONE (09:00)
[2017-07-30] MEDS ORDERED: POTASSIUM CL SA 10 MEQ TAB PO ONE (09:00)
[2017-07-30] MEDS: PROMOD 30 ML DOSE PO SCH ×2 (09:01→20:33)
--- NOTE | 2017-07-30 11:44 | P.PN ---
Subjective Date of Service: 07/30/17 Chief Complaint: abdominal pain, fever Subjective: Other (complaining of abdominal pain still, diarrhea still persisting. Has had 3 episodes this am) Review of Systems 10-point ROS is otherwise unremarkable Physical Examination - Vital Signs Temperature: 98.6 F Blood Pressure: 181/79 Pulse: 62 Respirations: 18 Pulse Ox (%): 97 - Physical Exam General: Alert, In no apparent distress, Oriented x3 HEENT: Atraumatic, Normocephalic, PERRLA Neck: Supple Respiratory: Clear to auscultation bilaterally, Normal air movement Cardiovascular: No edema, Normal pulses, Regular rate/rhythm, No gallops, No rubs, No murmurs Gastrointestinal: Normal bowel sounds, Soft and benign, Non-distended, W/out hepatosplenomegaly, No ascites, No tenderness, No masses, No rebound, No guarding Musculoskeletal: No clubbing, No swelling Integumentary: Pressure ulcer Neurological: Normal strength at 5/5 x4 extr Assessment And Plan - Current Problems (Diagnosis) (1) Enteritis Onset Date: 07/29/17 Current Visit: Yes Status: Acute Plan: continue ciprofloxacin/metronidazole continue IV hydration clear liquids advance diet as tolerated follow stool studies, c.diff pending at this time pain control (2) [id number] kidney injury Onset Date: 09/09/16 Current Visit: No Status: Acute Plan: continue to hold lisinopril monitor BUN/CR renally dose medications continue IV hydration Qualifiers: Acute renal failure type: unspecified Chronic kidney disease stage: stage 3 (moderate) Qualified Code(s): N17.9 - Acute kidney failure, unspecified; N18.3 - Chronic kidney disease, stage 3 (moderate) (3) Hypertension Current Visit: Yes Status: Acute Plan: start hydralazine po increase amlodipine po to 10mg adjust medications as needed for proper BP control Physician Review: Patient Assessed, Agree with Above Assessment and Plan
[2017-07-30] MEDS: HYDRALAZINE HCL 25 MG TABLET PO SCH ×2 (12:57→20:29)
[2017-07-30] MEDS ORDERED: MEDIHONEY 44 ML TOPICAL TUBE TOP SCH (14:00)
[2017-07-30] MEDS ORDERED: DIPHENOX/ATROP SULF 1 TAB PO ONE (14:36)
[2017-07-30] MEDS ORDERED: DIPHENOX/ATROP SULF 1 TAB PO PRN (14:37)
[2017-07-31] MEDS: METRONIDAZOLE 500mg IVPB 500 MG/100 ML BAG IV SCH ×2 (00:39→10:25)
[2017-07-31] MEDS: CIPROFLOXACIN 400mg IV 400 MG/200 ML BAG IV SCH (04:02)
[2017-07-31 04:27] LABS: Magnesium 2.1 mg/dL (1.8-2.5); Potassium 3.3 mEq/L (3.6-5.0)
[2017-07-31] MEDS: NA CHLORIDE 0.9% 1,000 ML IV SCH (05:00)
[2017-07-31] MEDS ORDERED: POTASSIUM 25 MEQ EFFERV TAB PO ONE (06:13)
[2017-07-31] MEDS: INSULIN -REGULAR HUMAN 50 UNIT/0.5 ML ML SQ SCH ×2 (07:30→13:41)
[2017-07-31] MEDS ORDERED: AMLODIPINE 10 MG TAB PO SCH (09:00)
[2017-07-31] MEDS: HYDRALAZINE HCL 25 MG TABLET PO SCH ×3 (09:00→13:43)
[2017-07-31] MEDS: PROMOD 30 ML DOSE PO SCH (09:00)
[2017-07-31] MEDS ORDERED: MEDIHONEY 44 ML TOPICAL TUBE TOP SCH (09:00)
[2017-07-31 10:18] VITALS: O2SAT 93
[2017-07-31] MEDS: CODEINE 30MG/APAP 300MG TAB PO PRN (10:26)
[2017-07-31] MEDS: GABAPENTIN 100 MG CAP PO SCH ×2 (10:29→13:43)
[2017-07-31] MEDS: NICOTINE 21 MG/PAT TD SCH (10:29)
--- NOTE | 2017-07-31 15:34 | P.DS ---
Admission Date: 07/28/17 Discharge Date: 07/31/17 Disposition: ROUTINE DISCHARGE Discharge Condition: GOOD Reason for Admission: abdominal pain, fever - Problems (1) Enteritis Onset Date: 07/29/17 Status: Acute (2) Sreat-lo-hoqfxhn kidney injury Onset Date: 09/09/16 Status: Acute Qualifiers: Acute renal failure type: unspecified Chronic kidney disease stage: stage 3 (moderate) Qualified Code(s): N17.9 - Acute kidney failure, unspecified; N18.3 - Chronic kidney disease, stage 3 (moderate) (3) Hypertension Status: Acute Brief History of Present Illness: Ms Priest is a 62 years old woman with history of CAD s/p CABG few month ago, IDDM , HTN, COPD who start about 2 days ago with abdominal pain, localized on epigastrium and left upper quadrant. It was associated with fever 100.4F, weakness and dizziness. She denied nausea or vomiting. No diarrhea either. Last time she had a bowel movement was yesterday. She denied cough or SOB, no burning urination. Work up in ED shows leukocytosis with bandemia, elevated ESR , elevated tropoinin I in context of worsening renal fuction. CT abd/pelvis remarkable for thickening of the wall of the terminal illum, however, similar to a CT scan in 2015. At my encounter, she felt very poor, and was still complaining of abdominal pain. Hospital Course: Patient was started on IV hydration, stool cultures sent out and started on IV antibiotics.Cultures came back negative for C.diff.Her symptoms improved. Her renal function improved significantly with hydration.She was seen by wound team and recommendations for wound care made and communicated with patient She was advised to follow up with GI for colonoscopy as well as PCP. she was discharged in stable condition. Vital Signs/Physical Exam: Temp Pulse Resp BP Pulse Ox 97.7 F 62 16 167/80 H 97 07/31/17 12:00 07/31/17 12:00 07/31/17 12:00 07/31/17 12:09 07/31/17 12:00 General: Alert, In no apparent distress, Oriented x3 HEENT: Atraumatic, Normocephalic, PERRLA Neck: Supple, JVD not distended, No Thyromegaly Respiratory: Clear to auscultation bilaterally, Normal air movement Cardiovascular: No edema, Normal pulses, Regular rate/rhythm, No gallops, No rubs, No murmurs Gastrointestinal: Normal bowel sounds, Soft and benign, Non-distended, W/out hepatosplenomegaly, W/out splenomegaly, No tenderness, No masses, No rebound, No guarding Integumentary: Pressure ulcer Neurological: Normal speech, Normal tone, Sensation intact Laboratory Data at Discharge: WBC 18.7 K/uL (4.3-10.9) H D 07/30/17 04:19 Hgb 9.0 g/dL (12.0-15.0) L 07/30/17 04:19 Hct 28.6 % (36.0-45.0) L D 07/30/17 04:19 Plt Count 199 K/uL (152-406) D 07/30/17 04:19 PT 14.5 SECONDS (9.5-12.5) H 07/28/17 19:55 INR 1.23 07/28/17 19:55 APTT 30.1 SECONDS (24.3-36.9) 07/28/17 19:55 Sodium 135 mEq/L (135-145) 07/31/17 03:56 Potassium 4.2 mEq/L (3.6-5.0) 07/31/17 12:50 BUN 47 mg/dL (6-20) H 07/31/17 03:56 Creatinine 1.46 mg/dL (0.44-1.00) H 07/31/17 03:56 Glucose 124 mg/dL (65-120) H 07/31/17 03:56 Magnesium 2.1 mg/dL (1.8-2.5) 07/31/17 03:56 Total Bilirubin 0.4 mg/dL (0.3-1.2) 07/30/17 04:19 AST 21 IU/L (10-42) 07/30/17 04:19 ALT 14 IU/L (10-60) 07/30/17 04:19 Alkaline Phosphatase 125 IU/L (42-121) H 07/30/17 04:19 Troponin I 0.09 ng/mL (<0.03) H 07/30/17 04:19 B-Natriuretic Peptide 2237 pg/ml (<=100) H 07/28/17 19:55 Amylase 52 U/L (28-100) 07/28/17 19:55 Lipase 17 U/L (22-51) L 07/28/17 19:55 Home Medications: RX: Aspirin Tab [Supa Aspirin*] 81 mg PO DAILY 04/28/15 RX: Clopidogrel Bisulfate [Plavix] 75 mg PO DAILY 04/28/15 RX: Insulin Detemir [Levemir Flextouch] 5 unit SQ DAILY 04/28/15 RX: Atorvastatin Calcium [Lipitor] 40 mg PO DAILY 02/03/17 RX: Codeine/APAP [Tylenol #3*] 1 tab PO Q8H PRN 02/03/17 RX: Gabapentin [Neurontin*] 100 mg PO TID 02/03/17 RX: Carvedilol 1 tab PO BID 07/29/17 RX: Collagenase [Santyl Ointment*] 1 dose TOP DAILY 07/29/17 RX: Fluticasone [Flovent Hfa 110*] 1 puff IH BID 07/29/17 RX: Hydralazine HCl [Apresoline] 50 mg PO Q8HR 07/29/17 RX: Ipratropium/Albuterol Sulfate [Combivent Respimat Inhal [place]] 2 puff IH Q6HR 07/29/17 RX: Melatonin 10 mg PO BEDTIME PRN 07/29/17 RX: Nicotine [Nicotine Patch] 1 each TD DAILY 07/29/17 RX: Diphenox/Atropine [Lomotil*] 1 tab PO QID PRN 2 Days #6 tab 07/31/17 New Medications: RX: Diphenox/Atropine [Lomotil*] 1 tab PO QID PRN 2 Days #6 tab PRN Reason: Diarrhea Patient Discharge Instructions: Follow up with pcp. needs GI follow up for colonoscopy Diet: Low sodium Activity: Ad shira
[2017-07-31 16:02] VITALS: BP 177/70; TEMP 98.1
== END 2017-07-31 17:37 | disposition home or self-care (01) ==
LOC: ER 19:44 → ERHOLD 21:36 → 4TH 07-29 02:29
PROVIDERS: ADMIT Internal Medicine; ATTEND Internal Medicine
DX: A41.9 Sepsis, unspecified organism (principal); K52.9 Noninfective gastroenteritis and colitis, unspecified; I13.0 Hypertensive heart and chronic kidney disease with heart failure and stage 1 through stage 4 chronic kidney disease, or unspecified chronic kidney disease; E11.22 Type 2 diabetes mellitus with diabetic chronic kidney disease; N18.3 Chronic kidney disease, stage 3 (moderate); I50.9 Heart failure, unspecified; N17.9 Acute kidney failure, unspecified; I25.10 Atherosclerotic heart disease of native coronary artery without angina pectoris; J44.9 Chronic obstructive pulmonary disease, unspecified; M54.9 Dorsalgia, unspecified; Z88.0 Allergy status to penicillin; Z85.42 Personal history of malignant neoplasm of other parts of uterus; Z95.1 Presence of aortocoronary bypass graft; L89.90 Pressure ulcer of unspecified site, unspecified stage
CPT/HCPCS: 36415; 51702; 71045; 74176; 80048; 80053; 80076; 81003; 82150; 82550; 82553; 82962; 83605; 83690; 83735; 83880; 84132; 84484; 85025; 85610; 85652; 85730; 87040; 87045; 87046; 87177; 87209; 87493; 93005; 96361; 96374; 96375; 99285; G0378; J0744; J2175; J2405; J3475; J7030

== ENCOUNTER 2017-10-02 16:15 | Inpatient (IN) | payer MEDICAID ==
--- OUTSIDE RECORDS SUMMARY | 2017-10-02 16:18 | XMS REPORT | Clinical Summary ---
:1955 Author Organization [facility] Address [address] [place] [address] Phone Care Team Providers Name Role Phone Unavailable Primary Care Provider Unavailable Allergies Active Allergy Reactions Severity Noted Date Comments Amoxicillin-Pot Clavulanate Diarrhea High 04/21/2017 Basil Nausea Only High 04/21/2017 Morphine Anaphylaxis High 04/21/2017 Nitroglycerin Nausea And Vomiting High 04/21/2017 IV NITRO ONLY Trazodone Nausea And Vomiting High 05/12/2017 Vancomycin Analogues Nausea And Vomiting High 04/21/2017 Current Medications Prescription Sig. Disp. Refills Start End Date Status Date aspirin 81 MG EC Take 81 mg by Active tablet mouth daily. acetaminophen Take 2 tablets 30 tablet 0 [...] (3 mL) subcutaneously InPn injection every morning. pen needle, Use as directed to 100 [...] tablet every 8 (eight) hours Blood pressure. atorvastatin Take 1 tablet (40 30 tablet 0 Active (LIPITOR) 40 MG mg total) by mouth 8 tablet daily. clopidogrel Take 1 tablet (75 30 tablet 0 Active (PLAVIX) 75 mg mg total) by mouth 8 tablet daily. NICOTINE (NICODERM Place onto the Active CQ TD) skin. ferrous sulfate Take 1 tablet (325 60 tablet 0 Active 325 (65 FE) MG mg total) by mouth 8 tablet 2 (two) times daily. melatonin 10 mg Take 10 mg by Active Tab mouth every night as needed. isosorbide Take 30 mg by Active mononitrate mouth daily. (IMDUR) 30 MG 24 hr tablet gabapentin Take 100 mg in AM 100 capsule 0 Active (NEURONTIN) 100 MG and afternoon and 8 capsule 300 mg at night. bumetanide (BUMEX) Take 1 tablet (1 60 tablet 0 10/06/19 Active 1 MG tablet mg total) by mouth 8 18 2 (two) times daily for 30 days. acetaminophen-code Take 1 tablet by 20 tablet 0 Active ine (TYLENOL #3) mouth every 6 8 300-30 mg per (six) hours as tablet needed. Max Daily Amount: 4 tablets lisinopril Take 40 mg by 06/02/19 Discontinued [...] 18 capsule mouth 3 (three) times daily. melatonin 3 mg Tab Take 1 tablet (3 30 tablet 0 09/03/19 Discontinued tablet mg total) by mouth 8 18 nightly. torsemide Take 1 tablet (20 60 tablet [...] daily for 8 18 patch 30 days. collagenase Apply topically 15 g 0 09/03/19 Discontinued (SANTYL) 250 daily. 8 18 units/g ointment clopidogrel Take 1 tablet (75 30 tablet [...] 8 18 tablet daily for 30 days. gabapentin Take 1 capsule 90 capsule 0 09/03/19 Discontinued (NEURONTIN) 100 MG (100 mg total) by 8 18 capsule mouth 3 (three) times daily. torsemide Take 2 tablets (40 60 tablet 0 09/06/19 Discontinued (DEMADEX) 20 MG mg total) by mouth 8 18 tablet 2 (two) times daily. magnesium oxide Take 1 tablet (400 30 tablet 0 09/10/19 (MAG-OX) 400 mg mg total) by mouth 8 18 tablet daily for 30 days. acetaminophen-code Take 1 tablet by 20 tablet 0 09/06/19 Discontinued ine (TYLENOL #3) mouth every 6 8 18 300-30 mg per (six) hours as tablet needed. Max Daily Amount: 4 tablets Hospital, Clinic, or Ordered Dose Route Frequency Start Date End Date Status Other Facility Administered Medication bumetanide (BUMEX) 2 MG IV Once 06/10/2017 06/10/2017 Ended injection 2 mg bumetanide (BUMEX) 2 MG IV Once 09/02/2017 09/02/2017 Discontinued injection 2 mg Active Problems Problem Noted Date S/P femoral-popliteal bypass surgery 09/02/2017 Overview: Right on 08/05/17 Hyperlipidemia 08/07/2017 History of IBS 08/07/2017 Leukocytosis 08/07/2017 PVD (peripheral vascular disease) with claudication ([facility]) 08/05/2017 Acute on chronic diastolic congestive heart failure ([facility]) 06/10/2017 PVD (peripheral vascular disease) ([facility]) 05/27/2017 S/P CABG (coronary artery bypass graft) 05/26/2017 Normocytic anemia 05/26/2017 Severe protein-calorie malnutrition ([facility]) 05/23/2017 ARTURO (acute kidney injury) ([facility]) 05/21/2017 Chronic kidney disease, stage 3 05/21/2017 CAD (coronary artery disease) 05/20/2017 Overview: S/p CABG- PRITCHETT-LAD,SVG-PDA,ramus,OM3 on 05/20/17 Atherosclerosis of chinik artery of extremity with ulceration ([facility]) 05/19/2017 Overview: RLE PVD Acute CHF ([facility]) 05/14/2017 COPD (chronic obstructive pulmonary disease) ([facility]) 05/14/2017 Controlled type 2 diabetes mellitus with circulatory disorder, with 05/14/2017 long-term current use of insulin ([facility]) Smoker 05/14/2017 Frequent PVCs 05/12/2017 Resolved Problems Problem Noted Date Resolved Date Recurrent right pleural effusion 05/27/2017 06/10/2017 Diarrhea 05/26/2017 06/10/2017 Chronotropic incompetence 05/21/2017 06/10/2017 Cardiogenic shock ([facility]) 05/21/2017 06/10/2017 Acute blood loss anemia 05/21/2017 06/10/2017 Acute respiratory failure with hypoxemia ([facility]) 05/21/2017 06/10/2017 Hyperchloremic metabolic acidosis 05/21/2017 06/10/2017 SIRS (systemic inflammatory response syndrome) ([facility]) 05/21/2017 06/10/2017 Coronary artery disease involving chinik coronary artery of 05/19/20172017 chinik heart without angina pectoris Acute on chronic respiratory failure with hypoxia ([facility]) 05/14/2017 06/10/2017 Benign hypertension with chronic kidney disease, stage III 04/22/20172017 Bigeminal rhythm 04/21/2017 06/10/2017 Respiratory insufficiency 06/10/2017 Encounters Date Type Specialty Care Team Description 09/11/2017 Refill Cardiology Alex Juarez MD 09/02/2017 - Hospital Encounter Cardiology Catarino Leon S/P femoral- popliteal 09/05/2017 MD Ac bypass surgery Karlie Mkceon (Primary Berta Hernández, Dx);Hyperlipidemia, unspecified Maribeth Oliveros MD type;PVD (peripheral vascular disease) with claudication ([facility]);Chronic diastolic CHF (congestive heart failure) (HCC);Chronic kidney disease, stage 3;Acute on chronic diastolic congestive heart failure (HCC);Coronary artery disease involving chinik coronary artery of chinik heart without angina pectoris 09/02/2017 Office Visit Cardiology Jean Monroe NP Pain and swelling of lower leg, right (Primary Dx);Acute on chronic diastolic (congestive) heart failure (HCC);S/P femoral-popliteal bypass surgery 08/05/2017 - Hospital Encounter Cardiology Mariela Verduzco PVD (peripheral 08/09/2017 MD [place] vascular disease) ([facility]);Controlled type 2 diabetes mellitus with complication, without long-term current use of insulin (HCC);Chronic obstructive pulmonary disease, unspecified COPD type (HCC);PVD (peripheral vascular disease) with claudication ([facility]) 08/05/2017 Anesthesia Event Lupillo Meade MD 08/05/2017 Procedure Pass 08/05/2017 Surgery Mariela Verduzco BYPASS,FEMORAL-POPLIT MD [place] EAViraj 08/04/2017 Orders Only Faviola Nascimento MD 07/24/2017 Office Visit Mariela Rene Coronary artery MD [place] disease involving chinik coronary artery of chinik heart without angina pectoris (Primary Dx) 07/07/2017 Telephone Cardiology Jean Monroe NP Medication Refill 06/10/2017 Office Visit Cardiology Jean Monroe NP Acute on chronic diastolic ACC/AHA stage C congestive heart failure (HCC) 05/28/2017 Procedure Pass 05/27/2017 Procedure Pass 05/27/2017 Surgery Kelly Chang PERIPHERAL ANGIOS / AORTOGRAM 05/23/2017 Orders Only General Internal Medicine 05/20/2017 Procedure Pass 05/20/2017 Surgery Mariela Verduzco BYPASS,AORTO CORONARY MD [place] TYLER/SVJovanna 05/20/2017 Procedure Pass 05/19/2017 Anesthesia Event Ministerio Yeboah MD 05/19/2017 Orders Only Faviola Nascimento MD 05/16/2017 Procedure Pass 05/16/2017 Surgery Kelly Chang L CATH & PCI 05/16/2017 Procedure Pass 05/12/2017 - Hospital Encounter Cardiology Marquez Powers, Bigeminal rhythm 06/01/2017 Sandra Carter, (Primary Dx);Chronic MD obstructive pulmonary Xiomara, disease, unspecified MD Tyron COPD type Kaylyn, (HCC);Smoker;Acute on Mrinalini Zade, chronic respiratory MD failure with hypoxia Alex Juarez, (HCC);Acute blood MD loss anemia;Acute kidney injury (nontraumatic) (HCC);Acute respiratory failure with hypoxemia (HCC);S/P CABG x 4;Cardiogenic shock (HCC);Chronotropic incompetence;Hyperchl oremic metabolic acidosis;SIRS (systemic inflammatory response syndrome) (HCC) 05/12/2017 Anesthesia Event Fer Wood MD 05/12/2017 Orders Only General Internal Medicine 05/12/2017 Procedure Pass 05/12/2017 Surgery Marquez Powers, EPS & ABLATION Sandra Carter MD 04/21/2017 - Hospital Encounter Cardiology Marilee Apple Bigeminal 04/23/2017 MD Mary rhythm;Diabetic Madelin Winchester MD associated with type 2 diabetes mellitus (HCC);Coronary artery disease involving chinik heart without angina pectoris, unspecified vessel or lesion type;Type 2 diabetes mellitus with diabetic nephropathy, with long-term current use of insulin (HCC);Essential hypertension after 10/01/2016 Family History Medical History Relation Name Comments COPD Father Cancer Father Hypertension Father No Known Problem Mother Asthma Sister COPD Sister Relation Name Status Comments Father Mother Sister Social History Tobacco Use Types Packs/Day Years Used Date Former Smoker 1 34 Quit: 05/12/2017 Smokeless Tobacco: Never Used Tobacco Cessation: Counseling Given: Yes Alcohol Use Drinks/Week oz/Week Comments No Sex Assigned at Date Recorded Not on file Last Filed Vital Signs Vital Sign Reading Time Taken Blood Pressure 136/60 09/05/2017 2:32 PM CDT Pulse 55 09/05/2017 2:32 PM CDT Temperature 35.8 C (96.4 F) 09/05/2017 2:32 PM CDT Respiratory Rate 18 09/05/2017 2:32 PM CDT Oxygen Saturation 95% 09/05/2017 2:32 PM CDT Inhaled Oxygen Concentration - - Weight 77.5 kg (170 lb 13.7 oz) 09/05/2017 8:08 AM CDT Height 170.2 cm (5' 7") 09/02/2017 9:41 PM CDT Body Mass Index 26.76 09/05/2017 8:08 AM CDT Plan of Treatment Health Maintenance Due Date Last Done Comments INFLUENZA VACCINE 12/29/2017 Implants Implanted Type Area Aquatic Centre Manager Device Expiration Model / Identifier Date Serial / Lot Device Clsr Angio-Seal Vip 8fr [id number] - [id number] Cardiovascular N/A: [employer] EVELYN 01/28/2018 [id number] / Implanted: Qty: 1 on 05/12/2017 by Marquez Powers, Sandra Carter MD Groin MED:CARDIAC / SURG [id number] Grft Eptfe-Heparin Rng [id number] - [id number] Graft/Patch Right: WL GORE & 04/09/2021 [id number] / Implanted: Qty: 1 on 08/05/2017 by Mariela Verduzco MD Leg ASSC:MED PRDT [id number] / N/A Procedures Procedure Name Priority Date/Time Associated Diagnosis Comments BYPASS,FEMORAL-POPLITEA 08/05/2017 7:30 AM Peripheral vascular L CDT disease (HCC) PERIPHERAL ANGIOS / 05/27/2017 2:53 PM chest pain AORTOGRAM CHESS INSTRUCTOR DAVIS 05/20/2017 9:05 AM CAOD CHESS INSTRUCTOR ENDOSCOPIC HARVEST,VEIN 05/20/2017 9:05 AM CAOD CHESS INSTRUCTOR BYPASS,AORTO CORONARY 05/20/2017 9:05 AM CAOD TYLER/SVG CHESS INSTRUCTOR L CATH & PCI 05/16/2017 4:42 PM chest pain CHESS INSTRUCTOR EPS & ABLATION 05/12/2017 7:38 PM R49.3-PVC CHESS INSTRUCTOR Case Notes EPS/ABLATION PVC WITH CARTO SOUND Special Needs TOVA [phone]/FADUMO after 10/01/2016 Results RHYTHM STRIP - SCAN (09/08/2017 3:04 PM)Only the most recent of7 resultswithin the time period is included.POC-Glucose meter (09/05/2017 5:05 PM)Only the most recent of108 resultswithin the time period is included. Component Value Ref Range POC-Glucose Meter 220 (H)Comment: TESTED AT [address] 70 - 110 mg/[place] [id number] Specimen Performing Laboratory Blood [address] [address] ECHOCARDIOGRAM REPORT - SCAN (09/05/2017 3:50 PM)Only the most recent of5 resultswithin the time period is included.Basic Metabolic Panel (09/05/2017 3: 14 PM)Only the most recent of37 resultswithin the time period is included. Component Value Ref Range Sodium 135 (L) 136 - 145 meq/L Potassium 4.8 3.5 - 5.1 meq/L Chloride 102 98 - 107 meq/L CO2 25 22 - 29 meq/L BUN 51 (H) 7 - 21 mg/dL Creatinine 1.99 (H) 0.57 - 1.25 mg/dL Glucose 201 (H) 70 - 105 mg/dL Calcium 8.8 8.4 - 10.2 mg/dL EGFR 25Comment: ESTIMATED GFR IS NOT ACCURATE mL/min/1.73 sq m CREATININE CLEARANCE IN PREDICTING GLOMERULAR FILTRATION RATE. ESTIMATED GFR IS NOT APPLICABLE FOR DIALYSIS PATIENTS. Specimen Performing Laboratory Blood - Arm, Right [address] [address] 2D Echo W/Doppler(CW/PW/Color) (09/05/2017 11:25 AM)Only the most recent of3 resultswithin the time period is included. Component Value Ref Range Ejection Fraction Specimen Performing Laboratory [facility] Narrative Transthoracic Echocardiography Report (TTE) Demographics Patient NameElif GREER of Study09/05 BETO Female Visit [id number] Room Number 1047 Number Date of 1955Referring Olivia Chang MD Age 62 year(s)SonographJennifer Underwood [facility] Head Of Music Leighton Morochoerpreting Tien Del Castillo MD Physician Procedure Type of Study TTE procedure:2DECHO W DOPPLER(CW/PW/COLOR) (Routine) Indications:Shortness of breath. Clinical History HGB 9.0 HCT 29.6 % CARDIOMEGALY, CHF, COPD, CAD, DM, HLD, HTN, UTERINE CA (1989), FORMER SMOKER, ACB X4 (05/20/17), ANGIO W/ STENT (1992, 1993), EPS/RFA (05/12/17), AORTOGRAM/ANGIO, L. CATH/PCI (05/16/17) Height: 67 inches Weight: 76.66 kg (169 lbs) BSA: 1.88 m^2 BMI: 26.47 kg/m^2 HR: 58 bpm BP: 133/90 mmHg Summary 1. The left ventricle is chamber size (by vol index) is severely enlarged. Mild concentric LV hypertrophy. Septal motion is abnormal, likely related to prior cardiac surgery. Basal to apical inferior wall is hypokinetic. The other segments contract normally. Global LV systolic function low normal . LVEF by Silverman's method of disk assessment is low normal (50 - 55). Grade 2 diastolic dysfunction (moderately increased LA pressure). LA size is severely enlarged (>48 ml/m2) . 2. RV chamber size is normal . Global RV systolic function is mildly reduced . RA cavity size is mildly enlarged . Estimated peak systolic PA pressure is 35-40 mmHg . 3. Aortic valve sclerosis. Mild mitral regurgitation. Previous Study In comparison with the prior exam on 05-23-17 there are no significant changes. Signature Findings Left Ventricle The left ventricle is chamber size (by vol index) is severely enlarged. Mild concentric LV hypertrophy. Septal motion is abnormal, likely related to prior cardiac surgery. Basal to apical inferior wall is hypokinetic. The other segments contract normally. Global LV systolic function low normal . LVEF by Silverman's method of disk assessment is low normal (50 - 55) . The LVEF was measured using Silverman's bi-plane method of disk .Normal ( cardiac index 2-3 L/min/m2) cardiac output state at rest is noted. Grade 2 diastolic dysfunction ( moderately increased LA pressure). Left AtriumLA size is severely enlarged (>48 ml/m2) . Right VentricleRV chamber size is normal . Global RV systolic function is mildly reduced . Right Atrium RA cavity size is mildly enlarged . Aortic Valve Mild AoV cusp thickening. Mild AoV cusp calcification. Aortic valve sclerosis. AoV area at rest by continuity equation is in the range of 1.66 cm2. Mitral Valve Mild MV leaflet thickening. Mild mitral regurgitation. Tricuspid ValveTrace tricuspid regurgitation. Estimated peak systolic PA pressure is 35-40 mmHg . Pulmonic Valve Normal PV structure and function. Mild pulmonary regurgitation. AortaAortic root size (SInus of Valsalva diameter) is normal . Proximal ascending aorta size is normal . PericardiumA trivial pericardial effusion issuspected anterior . IVC/SVC/PA/PV/PleuralPulmonary vein flow is consistent with increased LAP . The estimated RA pressure by IVC dynamics 5-10mmHg . Chambers/Structures Left Atrium LA Volume: 107.54 mlLA Area: 29.14 cm^ 2 LA Vol. Index: 57 ml/m^2 Left Ventricle LVIDd: 4.42 cm LV Septum Diastolic: 1.78 cm LV PW Diastolic: 1.77 cm LVEDV Silverman's:135.13 ml LVESV Silverman's:64.96 ml LVEF Silverman's: 52.2 %LVEDVI: 72 ml/m^2 LVESVI: 35 ml/m^2 LVOT Diameter: 2 cm Right Atrium RA Vol. (Sngl Plane): 56.82 ml Right Ventricle TAPSE: 1.17 cm Aorta Ao Root S of Patty.: 3.25 cmAscending Aorta: 3.19 cm Doppler/Quantitative Measurements Mitral Valve MV Peak E-Wave: 1.47 m/sMV Peak A-Wave: 0.76 m/s E/ A Ratio: 1.93 Peak Gradient: 8.63 mmHg Deceleration Time: 207.3 msec MV Caio. Peak: Tissue Doppler E' Lateral Velocity: 0.05 m/s E/E': 28.37 Aortic Valve Peak Velocity: 1.97 m/sMean Velocity: 1.41 m/s Peak Gradient: 15.45 mmHgMean Gradient: 8.84 mmHg AV Area (continuity): 1.66 cm^2 AV VTI: 49.01 cm AV DVI: 0.53 LVOT Peak Velocity: 0.9 m/s Peak Gradient: 3.26 mmHg Mean Velocity: 0.7 m/s Mean Gradient: 2.14 mmHg LVOT Diameter: 2 cmLVOT VTI: 25.97 cm LVOT Area: 3.14 cm^2 LVOT SV:81.55 ml LVOT CO: 4.73 l/minLVOT CI: 2.52 l/min/m^2 Tricuspid Valve TR Velocity: 2.76 m/s TR Gradient: 30.38 mmHg Procedure Note Interface, External Ris In - 09/05/2017 3:16 PM CDT Transthoracic Echocardiography Report (TTE) Demographics Patient Name CHRISTY GREER Date of Study 09/05/2017 BETO Gender Female Visit Number [id number] Race Room Number 1047 Number Date of 1955 Referring Physician Kelly Chang MD Age 62 year(s) 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 Clinical History HGB 9.0 HCT 29.6 % CARDIOMEGALY, CHF, COPD, CAD, DM, HLD, HTN, UTERINE CA (1989), FORMER SMOKER, ACB X4 (05/20/17), ANGIO W/ STENT (1992, 1993), EPS/RFA (05/12/17), AORTOGRAM/ANGIO, L. CATH/PCI (05/16/17) Height: 67 inches Weight: 76.66 kg (169 lbs) BSA: 1.88 m^2 BMI: 26.47 kg/m^2 HR: 58 bpm BP: 133/90 mmHg Summary 1. The left ventricle is chamber size (by vol index) is severely enlarged. Mild concentric LV hypertrophy. Septal motion is abnormal, likely related to prior cardiac surgery. Basal to apical inferior wall is hypokinetic. The other segments contract normally. Global LV systolic function low normal . LVEF by Silverman's method of disk assessment is low normal (50 - 55). Grade 2 diastolic dysfunction (moderately increased LA pressure). LA size is severely enlarged (>48 ml/m2) . 2. RV chamber size is normal . Global RV systolic function is mildly reduced . RA cavity size is mildly enlarged . Estimated peak systolic PA pressure is 35-40 mmHg . 3. Aortic valve sclerosis. Mild mitral regurgitation. Previous Study In comparison with the prior exam on 05-23-17 there are no significant changes. Signature Findings Left Ventricle The left ventricle is chamber size (by vol index) is severely enlarged. Mild concentric LV hypertrophy. Septal motion is abnormal, likely related to prior cardiac surgery. Basal to apical inferior wall is hypokinetic. The other segments contract normally. Global LV systolic function low normal . LVEF by Silverman's method of disk assessment is low normal (50 - 55) . The LVEF was measured using Silverman's bi-plane method of disk .Normal (cardiac index 2-3 L/min/m2) cardiac output state at rest is noted. Grade 2 diastolic dysfunction (moderately increased LA pressure). Left Atrium LA size is severely enlarged (>48 ml/m2) . Right Ventricle RV chamber size is normal . Global RV systolic function is mildly reduced . Right Atrium RA cavity size is mildly enlarged . Aortic Valve Mild AoV cusp thickening. Mild AoV cusp calcification. Aortic valve sclerosis. AoV area at rest by continuity equation is in the range of 1.66 cm2. Mitral Valve Mild MV leaflet thickening. Mild mitral regurgitation. Tricuspid Valve Trace tricuspid regurgitation. Estimated peak systolic PA pressure is 35-40 mmHg . Pulmonic Valve Normal PV structure and function. Mild pulmonary regurgitation. Aorta Aortic root size (SInus of Valsalva diameter) is normal . Proximal ascending aorta size is normal . Pericardium A trivial pericardial effusion issuspected anterior . IVC/SVC/PA/PV/Pleural Pulmonary vein flow is consistent with increased LAP . The estimated RA pressure by IVC dynamics 5-10mmHg . Chambers/Structures Left Atrium LA Volume: 107.54 ml LA Area: 29.14 cm^2 LA Vol. Index: 57 ml/m^2 Left Ventricle LVIDd: 4.42 cm LV Septum Diastolic: 1.78 cm LV PW Diastolic: 1.77 cm LVEDV Silevrman's:135.13 ml LVESV Silverman's:64.96 ml LVEF Silverman's: 52.2 % LVEDVI: 72 ml/m^2 LVESVI: 35 ml/m^2 LVOT Diameter: 2 cm Right Atrium RA Vol. (Sngl Plane): 56.82 ml Right Ventricle TAPSE: 1.17 cm Aorta Ao Root S of Patty.: 3.25 cm Ascending Aorta: 3.19 cm Doppler/Quantitative Measurements Mitral Valve MV Peak E-Wave: 1.47 m/s MV Peak A-Wave: 0.76 m/s E/A Ratio: 1.93 Peak Gradient: 8.63 mmHg Deceleration Time: 207.3 msec MV Caio. Peak: Tissue Doppler E' Lateral Velocity: 0.05 m/s E/E': 28.37 Aortic Valve Peak Velocity: 1.97 m/s Mean Velocity: 1.41 m/s Peak Gradient: 15.45 mmHg Mean Gradient: 8.84 mmHg AV Area (continuity): 1.66 cm^2 AV VTI: 49.01 cm AV DVI: 0.53 LVOT Peak Velocity: 0.9 m/s Peak Gradient: 3.26 mmHg Mean Velocity: 0.7 m/s Mean Gradient: 2.14 mmHg LVOT Diameter: 2 cm LVOT VTI: 25.97 cm LVOT Area: 3.14 cm^2 LVOT SV:81.55 ml LVOT CO: 4.73 l/min LVOT CI: 2.52 l/min/m^2 Tricuspid Valve TR Velocity: 2.76 m/s TR Gradient: 30.38 mmHg Calcium, Ionized (09/05/2017 5:27 AM)Only the most recent of26 resultswithin the time period is included. Component Value Ref Range Calcium, Ion 1.11 (L) 1.12 - 1.27 mmol/L pH, Blood 7.40 Specimen Performing Laboratory Blood - Arm, [address] [address] CBC with platelet count + automated diff (09/05/2017 5:27 AM)Only the most recent of29 resultswithin the time period is included. Component Value Ref Range WBC 7.1 3.5 - 10.5 K/L RBC 3.68 (L) 3.93 - 5.22 M/L Hemoglobin 9.0 (L) 11.2 - 15.7 GM/DL Hematocrit 29.6 (L) 34.1 - 44.9 % MCV 80.4 79.4 - 94.8 fL MCH 24.5 (L) 25.6 - 32.2 pg MCHC 30.4 (L) 32.2 - 35.5 GM/DL RDW 16.5 (H) 11.7 - 14.4 % Platelets 215 150 - 450 K/CU MM MPV 9.5 9.4 - 12.3 fL nRBC 0 0 - 0 /100 WBC % Neutros 42 % % Lymphs 46 % % Monos 6 % % Eos 5 % % Baso 1 % # Neutros 2.96 1.56 - 6.13 K/L # Lymphs 3.27 1.18 - 3.74 K/L # Monos 0.41 (H) 0.24 - 0.36 K/L # Eos 0.34 0.04 - 0.36 K/L # Baso 0.08 0.01 - 0.08 K/L Immature Granulocytes-Relative 0 0 - 1 % Specimen Performing Laboratory Blood - Arm, [address] [address] Lactic acid, venous, whole blood (09/05/2017 5:27 AM) Component Value Ref Range Lactate, Venous 0.8 0.5 - 2.2 mmol/L Specimen Performing Laboratory Blood - Arm, [address] [address] Narrative Effective 08/02/2015: Units/Reference Range Change New: 0.5-2.2 mmol/LPrevious: 5-20 mg/dL CBC with platelet count + automated diff (09/05/2017 5:27 AM)Only the most recent of29 resultswithin the time period is included. Specimen Performing Laboratory Blood Narrative The following orders were created for panel order CBC with platelet count + automated diff. Procedure Abnormality Status --------- ------ CBC with platelet count ...[[id number]]AbnormalFinal result Please view results for these tests on the individual orders. Phosphorus (09/05/2017 5:27 AM)Only the most recent of28 resultswithin the time period is included. Component Value Ref Range Phosphorus 5.1 (H) 2.3 - 4.7 mg/dL Specimen Performing Laboratory Blood - Arm, [address] [address] Magnesium (09/05/2017 5:27 AM)Only the most recent of30 resultswithin the time period is included. Component Value Ref Range Magnesium 2.0 1.6 - 2.6 mg/dL Specimen Performing Laboratory Blood - Arm, [address] [address] XR sacrum and coccyx 3 views min (09/04/2017 9:06 PM) Specimen Performing Laboratory GE RIS Narrative FINAL REPORT RAD, SACRUM \\T\\ COCCYX, MIN 3 VIEWS CLINICAL INDICATION:fall, tailbone pain COMPARISON: None FINDINGS: Three views of the sacrum and coccyx were obtained. The sacrum is obscured by overlying stool and bowel gas on the frontal view. There is no subluxation on the lateral view. No definite fracture is identified. Bilateral sacroiliac joints are patent. The bilateral hip joints are maintained. There are degenerative changes of the lower lumbar spine and bilateral hip joints. Multiple surgical clips overlie the pelvis. There are vascular calcifications. There is a copious amount of retained stool in the colon and rectum. IMPRESSION: No definite fracture is identified. A CT or MRI may be performed if clinical suspicion for an acute fracture persists. Signed: Juan Francisco Talbot MD Report Verified Date/Time:09/04/2017 21:22:03 Reading Location: [facility] C013T Transitional Reading Room Procedure Note Interface, External Ris In - 09/04/2017 9:24 PM CDT FINAL REPORT RAD, SACRUM \\T\\ COCCYX, MIN 3 VIEWS CLINICAL INDICATION: fall, tailbone pain COMPARISON: None FINDINGS: Three views of the sacrum and coccyx were obtained. The sacrum is obscured by overlying stool and bowel gas on the frontal view. There is no subluxation on the lateral view. No definite fracture is identified. Bilateral sacroiliac joints are patent. The bilateral hip joints are maintained. There are degenerative changes of the lower lumbar spine and bilateral hip joints. Multiple surgical clips overlie the pelvis. There are vascular calcifications. There is a copious amount of retained stool in the colon and rectum. IMPRESSION: No definite fracture is identified. A CT or MRI may be performed if clinical suspicion for an acute fracture persists. Signed: Juan Francisco Talbot MD Report Verified Date/Time: 09/04/2017 21:22:03 Reading Location: [facility] C013T Transitional Reading Room PHERAL VASCULAR REPORT - SCAN (09/04/2017 7:20 AM)Only the most recent of4 resultswithin the time period is included.Creatine Kinase (CK) (09/04/2017 4: 18 AM) Component Value Ref Range Total CK 45 29 - 200 U/L Specimen Performing Laboratory Blood [address] [address] Protein, random urine (09/03/2017 7:17 PM)Only the most recent of3 resultswithin the time period is included. Component Value Ref Range Protein, Urine 102 (H) 0 - 14 mg/dL Specimen Performing Laboratory Urine [address] [address] Creatinine, random urine (09/03/2017 7:17 PM)Only the most recent of4 resultswithin the time period is included. Component Value Ref Range Creatinine, Ur 16.1 mg/dL Specimen Performing Laboratory Urine [facility] [address] [address] Narrative Reference Range: No Normals Arterial doppler leg, right (09/03/2017 5:30 PM) Component Value Ref Range Ejection Fraction Specimen Performing Laboratory [facility] ECHO HEARTLAB MKCKESSON CPACS Impressions Right Impression 1. The common femoral and profunda femoral arteries are patent with biphasic and triphasic Doppler waveforms. 2. The superficial femoral artery is occluded with reconstitution of retrograde flow in the mid-distal via collateral flow. 3. The femoral-popliteal bypass graft is patent with velocities of: Proximal anastomosis- 117 cm/sec, proximal graft- 102 cm.sec, mid graft- 113 cm/sec, distal graft- 132 cm/sec and distal anastomosis- 133 cm/sec. 4. The popliteal, posterior tibial and peroneal arteries are patent with triphasic Doppler waveforms. 5. The very distal anterior tibial artery is occluded. 6. The PT pressure is 167 mmHg with an MITCHELL of 1.04 and the DP pressure is 177 mmHg with an MITCHELL of 1.11, within normal range. 7. The great toe pressure is 127 mmHg with a normal TBI of 0.79. 8. The digits have adequate flow by PPG waveforms. Left Impression FOR COMPARISON 1. The PT pressure is 117 mmHg with an MITCHELL of 0.73 (within moderate obstruction range) and the DP pressure is 136 mmHg with an MITCHELL of 0.85 (within mild obstruction range). 2. The 2nd, 3rd and 4th digits have adequate flow by PPG waveforms. 3. The 5th digit has decreased flow by PPG waveforms. Conclusions Summary Arterial pressures and Doppler analysis were performed on the right lower extremity. Adequate Doppler waveforms were obtained. The superficial femoral artery was occluded with reconstitution of retrograde flow in the mid-distal via collateral flow. The femoral-popliteal bypass graft was patent with no obstruction visualized. The popliteal, posterior tibial and peroneal arteries were patent with triphasic Doppler waveforms. The very distal anterior tibial artery was occluded. The PT MITCHELL and DP MITCHELL (collateral flow) were within normal range. The digits had adequate flow by PPG waveforms. Signature Velocities are measured in cm/s ; Diameters are measured in cm LE Duplex Measurements Right Left + + + + + + + + + + !Location ! !PSV!EDV !Waveform ! !PSV !EDV !Waveform! + + + + + + + + + + !Mid Common Femoral ! !168!! ! + + + + + + !Prox PFA ! !181!! ! + + + + + + !Mid SFA ! !13 !! ! + + + + + + !Dist SFA ! !36.4 !! ! + + + + + + !Dist Popliteal ! !102!! ! + + + + + + !Prox INFO PRINT PRESS OPERATOR ! !62.9 !! ! + + + + + + !Mid INFO PRINT PRESS OPERATOR ! !71.1 !! ! + + + + + + !Dist INFO PRINT PRESS OPERATOR ! !61.3 !! ! + + + + + + !Prox DANNY ! !25.2 !! ! + + + + + + !Dist DANNY ! !41.4 !! ! + + + + + + !Prox Peroneal ! !60.9 !! ! + + + + + + !Mid Peroneal ! !74.5 !! ! + + + + + + !Dist Peroneal ! !79.2 !! ! + + + + + + Narrative PV LAB - Lower Extremity Arterial Duplex Demographics Patient Name Elif GREER of Study 09/03/2017 BETO [id number] Visit Number [id number] Female Accession Number [id number] 1955 [facility] Physician SonographerHeather Elma Vargas T Physician , RPVI Procedure Type of Study: Extremities Arteries: Lower Extremities Arterial Duplex, ARTERIAL DOPPLER LEG, RIGHT. Indications for Study:Pain and Post op. Patient Status:Routine. Study Location:Portable. Technical Quality:Adequate visualization. Risk Factors History of Disease + + + + !Diagnosis !Date!Comments ! + + + + !History/Risk!05/13/2017!S/P Heart stent placement 05/12/17, Cardiomegaly,! !Factors:!!CHF, COPD, CAD, DM, HLD, HTN, Smoker , Left great! 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 !!!graft ! + + + + Procedure Note Interface, External Ris In - 09/04/2017 4:41 AM CDT PV LAB - Lower Extremity Arterial Duplex Demographics Patient Name CHRISTY GREER Date of Study 09/03/2017 BETO Age 62 Visit Number [id number] Gender Female Accession Number [id number] Date of 1955 Referring Bernardo Vargas Room Number 1047 Physician Aircraft Powertrain Repairer Elma Knight T Physician , RPVI Procedure Type of Study: Extremities Arteries: Lower Extremities Arterial Duplex, ARTERIAL DOPPLER LEG, RIGHT. Indications for Study:Pain and Post op. Patient Status:Routine. Study Location:Portable. Technical Quality:Adequate visualization. Risk Factors History of Disease + + + + !Diagnosis !Date !Comments ! + + + + !History/Risk !05/13/2017!S/P Heart stent placement 05/12/17, Cardiomegaly,! !Factors: ! !CHF, COPD, CAD, DM, HLD, HTN, Smoker, Left great! ! ! 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 ! ! !graft ! + + + + Impressions Right Impression 1. The common femoral and profunda femoral arteries are patent with biphasic and triphasic Doppler waveforms. 2. The superficial femoral artery is occluded with reconstitution of retrograde flow in the mid-distal via collateral flow. 3. The femoral-popliteal bypass graft is patent with velocities of: Proximal anastomosis- 117 cm/sec, proximal graft- 102 cm.sec, mid graft- 113 cm/sec, distal graft- 132 cm/sec and distal anastomosis- 133 cm/sec. 4. The popliteal, posterior tibial and peroneal arteries are patent with triphasic Doppler waveforms. 5. The very distal anterior tibial artery is occluded. 6. The PT pressure is 167 mmHg with an MITCHELL of 1.04 and the DP pressure is 177 mmHg with an MITCHELL of 1.11, within normal range. 7. The great toe pressure is 127 mmHg with a normal TBI of 0.79. 8. The digits have adequate flow by PPG waveforms. Left Impression FOR COMPARISON 1. The PT pressure is 117 mmHg with an MITCHELL of 0.73 (within moderate obstruction range) and the DP pressure is 136 mmHg with an MITCHELL of 0.85 (within mild obstruction range). 2. The 2nd, 3rd and 4th digits have adequate flow by PPG waveforms. 3. The 5th digit has decreased flow by PPG waveforms. Conclusions Summary Arterial pressures and Doppler analysis were performed on the right lower extremity. Adequate Doppler waveforms were obtained. The superficial femoral artery was occluded with reconstitution of retrograde flow in the mid-distal via collateral flow. The femoral-popliteal bypass graft was patent with no obstruction visualized. The popliteal, posterior tibial and peroneal arteries were patent with triphasic Doppler waveforms. The very distal anterior tibial artery was occluded. The PT MITCHELL and DP MITCHELL (collateral flow) were within normal range. The digits had adequate flow by PPG waveforms. Signature Velocities are measured in cm/s ; Diameters are measured in cm LE Duplex Measurements Right Left + + + -------+ + + + +-------- + + !Location ! !PSV !EDV !Waveform ! !PSV !EDV !Waveform ! + + + -------+ + + + +-------- + + !Mid Common Femoral ! !168 ! ! ! + + + -------+ + + !Prox PFA ! !181 ! ! ! + + + -------+ + + !Mid SFA ! !13 ! ! ! + + + -------+ + + !Dist SFA ! !36.4 ! ! ! + + + -------+ + + !Dist Popliteal ! !102 ! ! ! + + + -------+ + + !Prox INFO PRINT PRESS OPERATOR ! !62.9 ! ! ! + + + -------+ + + !Mid INFO PRINT PRESS OPERATOR ! !71.1 ! ! ! + + + -------+ + + !Dist INFO PRINT PRESS OPERATOR ! !61.3 ! ! ! + + + -------+ + + !Prox DANNY ! !25.2 ! ! ! + + + -------+ + + !Dist DANNY ! !41.4 ! ! ! + + + -------+ + + !Prox Peroneal ! !60.9 ! ! ! + + + -------+ + + !Mid Peroneal ! !74.5 ! ! ! + + + -------+ + + !Dist Peroneal ! !79.2 ! ! ! + + + -------+ + + ECG 12 lead (09/03/2017 8:28 AM)Only the most recent of5 resultswithin the time period is included. Specimen Performing Laboratory GE MUSE Narrative Ventricular Rate 65 BPM Atrial Rate 65 BPM P-R Interval 172 ms QRS Duration 104 ms Q-T Interval 472 ms QTC Calculation(Bazett) 490 ms P [place] 91 degrees R [place] 1 degrees T [place] 133 degrees Normal sinus rhythm Possible Left atrial enlargement Possible Anterior infarct (cited on or before 18-MAY-2017) ST & T wave abnormality, consider lateral ischemia Abnormal ECG When compared with ECG of 02-SEP-2017 22:48, No significant change was found Confirmed by MD POTTS JORGE ([id number]) on 09/04/2017 12:49:44 PM Procedure Note Interface, External Ris In - 09/04/2017 12:49 PM CDT Ventricular Rate 65 BPM Atrial Rate 65 BPM P-R Interval 172 ms QRS Duration 104 ms Q-T Interval 472 ms QTC Calculation(Bazett) 490 ms P [place] 91 degrees R [place] 1 degrees T [place] 133 degrees Normal sinus rhythm Possible Left atrial enlargement Possible Anterior infarct (cited on or before 18-MAY-2017) ST & T wave abnormality, consider lateral ischemia Abnormal ECG When compared with ECG of 02-SEP-2017 22:48, No significant change was found Confirmed by MD POTTS JORGE ([id number]) on 09/04/2017 12:49:44 PM Troponin I (09/03/2017 4:35 AM)Only the most recent of4 resultswithin the time period is included. Component Value Ref Range Troponin I 0.05 (H) 0.00 - 0.03 ng/mL Specimen Performing Laboratory Blood - Arm, Right [address] [address] Narrative Troponin I (TnI) levels must be [...] acidosis, acute neurological disease, and persistent tachyarrhythmia. Hepatic function panel (09/03/2017 4:35 AM)Only the most recent of2 resultswithin the time period is included. Component Value Ref Range Protein, Total 6.8 6.0 - 8.3 gm/dL Albumin 2.9 (L) 3.5 - 5.0 g/dL Total Bilirubin 0.5 0.2 - 1.2 mg/dL Bilirubin, Direct 0.2 0.1 - 0.5 mg/dL Alkaline Phosphatase 173 (H) 40 - 150 U/L AST 25 5 - 34 U/L ALT 23 6 - 55 U/L Specimen Performing Laboratory Blood - Arm, Right [address] [address] XR chest 1 view portable / bedside (09/02/2017 8:47 PM)Only the most recent of18 resultswithin the time period is included. Specimen Performing Laboratory GE RIS Narrative FINAL REPORT RAD, CHEST, 1 VIEW, NON DEPT INDICATION: CHEST PAIN COMPARISON: Chest x-ray 4 weeks ago TECHNIQUE: Single frontal view of the chest. IMPRESSION: Cardiomegaly. Mild pulmonary interstitial edema with a small right-sided effusion. No acute osseous abnormality. Signed: Dario Abraham MD Report Verified Date/Time:09/02/2017 21:42:11 Reading Location: [address] Transitional Reading Room Procedure Note Interface, External Ris In - 09/02/2017 9:44 PM CDT FINAL REPORT RAD, CHEST, 1 VIEW, NON DEPT INDICATION: CHEST PAIN COMPARISON: Chest x-ray 4 weeks ago TECHNIQUE: Single frontal view of the chest. IMPRESSION: Cardiomegaly. Mild pulmonary interstitial edema with a small right-sided effusion. No acute osseous abnormality. Signed: Dario Abraham MD Report Verified Date/Time: 09/02/2017 21:42:11 Reading Location: [address] Transitional Reading Room Sodium, random urine (09/02/2017 8:43 PM) Component Value Ref Range Sodium Urine 80 meq/L Specimen Performing Laboratory Urine [address] [address] Narrative Reference Range: No Normals Urinalysis w/Microscopic (09/02/2017 8:43 PM)Only the most recent of3 resultswithin the time period is included. Component Value Ref Range Color, UA Light Yellow Clarity, UA Clear Specific [place], UA 1.008 1.001 - 1.035 pH, UA 6.5 5.0 - 8.0 Protein, UA 200 mg/dL (A) Negative Glucose, UA 70 mg/dL (A) Negative Ketones, UA Negative Negative Bilirubin, UA Negative Negative Blood, UA Negative Negative Nitrite, UA Negative Negative Leukocytes, UA Negative Negative Urobilinogen, UA 0.2 0.2 - 1.0 mg/dL RBC, UA <1 /HPF WBC, UA 2 /HPF Bacteria, UA Occasional Mucus Rare Squam Epithel, UA 2 /HPF Hyaline Casts, UA 7 /LPF Specimen Source Specimen Performing Laboratory Urine [address] [address] Venous doppler leg, right (09/02/2017 5:34 PM) Component Value Ref Range Ejection Fraction Specimen Performing Laboratory [facility] ECHO HEARTLAB MKCKESSON CPACS Impressions Right Impression 1. There is no deep venous obstruction in the common femoral, profunda femoral, femoral, popliteal, posterior tibial or peroneal veins. 2. There is no superficial venous obstruction in the great saphenous vein. 3. The femoral-popliteal bypass graft is patent with a velocity of 126/10 cm/sec. Conclusions Summary Venous duplex imaging and compression of the right lower extremity was performed. The veins were technically difficult to visualize due to edema. The right venous system was patent and compressible with no evidence of thrombus where visualized. The venous Doppler waveforms were phasic with respiration . The femoral-popliteal bypass graft was patent with a velocity of 126/10 cm/sec. Signature Velocities are measured in cm/s ; Diameters are measured in cm Narrative PV LAB - Lower Extremities DVT Study Demographics Patient Name CHRISTY GREER Date of Study09/02/2017 BETO [id number] Age62 Visit Number [id number] Gender Female Accession Number [id number] Date of Birth1955 ReferringBeers Catarino Zimmerman [id number] Physician SonographGiovanni Lerma MD, [facility] Procedure Type of Study: Veins: Lower Extremities DVT Study, VENOUS DOPPLER LEG, RIGHT. Indications for Study:Leg pain and Leg swelling. Patient Status:STAT. Study Location:Portable. Technical Quality:Adequate visualization. Risk Factors History of Disease + + + + !Diagnosis !Date!Comments ! + + + + !History/Risk!05/13/2017!S/P Heart stent placement 05/12/17, Cardiomegaly,! 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 + + + + !Other !!Right Leg Femoral-Popliteal Bypass Graft! + + + + Procedure Note Interface, External Ris In - 09/02/2017 6:17 PM CDT PV LAB - Lower Extremities DVT Study Demographics Patient Name CHRISTY GREER Date of Study 09/02/2017 BETO Age 62 Visit Number [id number] Gender Female Accession Number [id number] Date of 1955 Referring Edward Levi Room Number ED8 Physician Aircraft Powertrain Repairer Jose Cruz Perez, T Physician , RPVI Procedure Type of Study: Veins: Lower Extremities DVT Study, VENOUS DOPPLER LEG, RIGHT. Indications for Study:Leg pain and Leg swelling. Patient Status:STAT. Study Location:Portable. Technical Quality:Adequate visualization. Risk Factors History of Disease + + + + !Diagnosis !Date !Comments ! + + + + !History/Risk !05/13/2017!S/P Heart stent placement 05/12/17, Cardiomegaly,! !Factors: ! !CHF, COPD, CAD, DM, HLD, HTN, Smoker, Left great! ! ! 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 + + + + !Other ! !Right Leg Femoral-Popliteal Bypass Graft ! + + + + Impressions Right Impression 1. There is no deep venous obstruction in the common femoral, profunda femoral, femoral, popliteal, posterior tibial or peroneal veins. 2. There is no superficial venous obstruction in the great saphenous vein. 3. The femoral-popliteal bypass graft is patent with a velocity of 126/10 cm/sec. Conclusions Summary Venous duplex imaging and compression of the right lower extremity was performed. The veins were technically difficult to visualize due to edema. The right venous system was patent and compressible with no evidence of thrombus where visualized. The venous Doppler waveforms were phasic with respiration . The femoral-popliteal bypass graft was patent with a velocity of 126/10 cm/sec. Signature Velocities are measured in cm/s ; Diameters are measured in cm PT/aPTT (09/02/2017 4:15 PM) Component Value Ref Range Protime 14.4 11.7 - 14.7 seconds INR 1.1 <=5.9 PTT 31.0 22.5 - 36.0 seconds Specimen Performing Laboratory Blood - Arm, Right [address] [address] Narrative RECOMMENDED COUMADIN/WARFARIN INR THERAPY RANGES STANDARD DOSE: 2.0 - 3.0 Includes: PROPHYLAXIS for venous thrombosis, systemic embolization; TREATMENT for venous thrombosis and/or pulmonary embolus. HIGH RISK: Target INR is 2.5-3.5 for patients with mechanical heart valves. B N P (09/02/2017 1:18 PM)Only the most recent of6 resultswithin the time period is included. Component Value Ref Range BNP 1942 (H) 0 - 100 pg/mL Specimen Performing Laboratory Blood [address] [address] TRANSFUSION SERVICE REPORT - SCAN (08/08/2017 5:41 PM)Only the most recent of8 resultswithin the time period is included.Prepare Leuko-Red RBC (08/07/2017 11: 54 PM) Component Value Ref Range CROSSMATCH COMPATIBLE Unit ABO O Pos UNIT NUMBER [id number] Status TRANSFUSED Blood Bank Product RED BLOOD CELLS PRODUCT CODE [id number] Specimen Performing Laboratory Other SAFETRACE TX Iron, TIBC, % sat. (without ferritin) (08/07/2017 4:19 AM) Component Value Ref Range Iron 21 (L) 40 - 160 ug/dL TIBC 184 (L) 250 - 450 ug/dL Iron % Saturation 11 (L) 20 - 55 % Specimen Performing Laboratory Blood [address] [address] Reticulocyte count (08/07/2017 4:19 AM) Component Value Ref Range % Retic 1.2 0.5 - 1.7 % Specimen Performing Laboratory Blood [address] [address] Ferritin (08/07/2017 4:19 AM) Component Value Ref Range Ferritin 87 5 - 275 ng/mL Specimen Performing Laboratory [address] [address] Transfuse Leuko-Red RBC (08/06/2017 8:51 AM)Only the most recent of2 resultswithin the time period is included.aPTT (08/06/2017 3:27 AM)Only the most recent of2 resultswithin the time period is included. Component Value Ref Range PTT 37.7 (H) 22.5 - 36.0 seconds Specimen Performing Laboratory Blood [address] [address] Prothromin time/INR (08/06/2017 3:27 AM)Only the most recent of5 resultswithin the time period is included. Component Value Ref Range Protime 16.2 (H) 11.7 - 14.7 seconds INR 1.3 <=5.9 Specimen Performing Laboratory Blood [address] [address] Narrative RECOMMENDED COUMADIN/WARFARIN INR THERAPY RANGES STANDARD DOSE: 2.0 - 3.0 Includes: PROPHYLAXIS for venous thrombosis, systemic embolization; TREATMENT for venous thrombosis and/or pulmonary embolus. HIGH RISK: Target INR is 2.5-3.5 for patients with mechanical heart valves. Fibrinogen (08/06/2017 3:27 AM)Only the most recent of2 resultswithin the time period is included. Component Value Ref Range Fibrinogen 548 (H) 225 - 434 mg/dl Specimen Performing Laboratory Blood [address] [address] Potassium-Stat Lab (08/05/2017 1:07 PM)Only the most recent of15 resultswithin the time period is included. Component Value Ref Range Potassium 4.2 3.6 - 5.5 meq/L Specimen Performing Laboratory Blood, [address] [address] Sodium Na-Stat Lab (08/05/2017 1:07 PM)Only the most recent of13 resultswithin the time period is included. Component Value Ref Range Sodium 133 (L) 135 - 148 meq/L Specimen Performing Laboratory Blood, [address] [address] Prepare RBC (08/05/2017 12:53 PM)Only the most recent of2 resultswithin the time period is included. Component Value Ref Range CROSSMATCH COMPATIBLE Unit ABO O Pos UNIT NUMBER [id number] Status RETURNED FROM ISSUE Blood Bank Product RED BLOOD CELLS PRODUCT CODE [id number] CROSSMATCH COMPATIBLE Unit ABO O Pos UNIT NUMBER [id number] Status RETURNED FROM ISSUE Blood Bank Product RED BLOOD CELLS PRODUCT CODE [id number] Specimen Performing Laboratory SAFETRACE TX HGB/HCT (H&H)-Stat Lab (08/05/2017 12:23 PM)Only the most recent of13 resultswithin the time period is included. Component Value Ref Range Hemoglobin 10.8 (L) 12.0 - 15.0 g/dL Hematocrit 32.0 (L) 36.0 - 45.0 % Specimen Performing Laboratory Blood, Arterial [address] [address] POC ACTIVATED CLOTTING TIME (08/05/2017 9:29 AM)Only the most recent of16 resultswithin the time period is included. Component Value Ref Range Activated Clotting Time 219Comment: TESTED AT [address] sec [address] Specimen Performing Laboratory Blood [address] [address] RRL Critical Labs (ABG,NA,K,H&H,GLU) (08/05/2017 8:08 AM)Only the most recent of11 resultswithin the time period is included. Specimen Performing Laboratory Blood, Arterial Narrative The following orders were created for panel order RRL Critical Labs (ABG,NA,K,H&H,GLU). Procedure Abnormality Status --------- ------ Blood gas, arterial[[id number]]AbnormalFinal result Sodium Na-Stat Lab[[id number]] AbnormalFinal result Potassium-Stat Lab[[id number]] NormalFinal result Glucose-Stat Lab[[id number]] AbnormalFinal result HGB/HCT (H&H)-Stat Lab[[id number]] Abnormal Final result Please view results for these tests on the individual orders. Glucose-Stat Lab (08/05/2017 8:08 AM)Only the most recent of12 resultswithin the time period is included. Component Value Ref Range Glucose 172 (H) 70 - 110 mg/dL Specimen Performing Laboratory Blood, Arterial [address] [address] Blood gas, arterial (08/05/2017 8:08 AM)Only the most recent of21 resultswithin the time period is included. Component Value Ref Range pH, Arterial 7.36 7.35 - 7.45 pCO2, Arterial 47 (H) 35 - 45 mmHg pO2, Arterial 213 (H) 80 - 90 mmHg O2 Sat, Arterial 99.4 (H) 96.0 - 97.0 % HCO3, Arterial 26 21 - 29 mmol/L Base Excess, Arterial 0.3 -2.0 - 3.0 mmol/L Patient Temperature 37.2 C FIO2 70.0 % Specimen Performing Laboratory Blood, Arterial [address] [address] Type and screen, automated (08/05/2017 6:54 AM)Only the most recent of4 resultswithin the time period is included. Component Value Ref Range ABO/RH AUTOMATED (BEAKER) O POSITIVE Ab Scrn NEGATIVE Specimen Performing Laboratory Blood [address] [address] VASCULAR DIAGRAM -SCAN (07/11/2017 3:30 PM)Only the most recent of6 resultswithin the time period is included.CBC (Hemogram only) (06/01/2017 4:07 AM)Only the most [...] 0 /100 WBC Specimen Performing Laboratory Blood [address] [address] CARDIAC CATH REPORT - SCAN (05/29/2017 8:50 [...] PATIENTS. Specimen Performing Laboratory Blood - Arm, [address] [address] Carotid doppler bilateral (05/28/2017 8:15 AM) Component Value Ref Range Ejection Fraction Specimen Performing Laboratory [facility] ECHO HEARTLAB MKCKESSON CPACS Impressions Right Impression 1. There is 50-69% [...] CHRISTY GREER Date of Study 05/28/2017 BETO [id number] Age 62 Visit Number [id number] Gender Female Accession Number [id number] Date of 1955 [facility] [place] Room Number 1014 Patricia McgrawographNishi Richard. Jeremy Perez MD, Physician RPVI Procedure Type of Study: Cerebral: Carotid, CAROTID DOPPLER, BILATERAL. Indications for Study:Right Carotid Bruit. Patient Status:Routine. Study Location:Vascular Lab. Technical Quality:Adequate visualization. - Results were reported to:Dr. Lopez @ 0253. Risk Factors History of Disease + + + + !Diagnosis !Date!Comments ! + + + + !History/Risk!05/13/2017!S/P Heart stent placement 05/12/17, Cardiomegaly,! 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 + + + + Procedure Note Interface, External Ris In - 05/28/2017 10:59 AM CHESS INSTRUCTOR PV LAB - Carotid Duplex Study Demographics Patient Name CHRISTY GREER Date of Study 05/28/2017 BETO Age 62 Visit Number [id number] Gender Female Accession Number [id number] Date of 1955 Referring Jeremy Hemphilln Room Number 1014 Physician John Aircraft Powertrain Repairer Macario Zhu Interpreting Gurmeet Perez MD, Physician RPBRUNO Procedure Type of Study: Cerebral: Carotid, CAROTID DOPPLER, BILATERAL. Indications for Study:Right Carotid Bruit. Patient Status:Routine. Study Location:Vascular Lab. Technical Quality:Adequate visualization. - Results were reported to:Dr. Lopez @ [id number]. Risk Factors History of Disease + + [...] left side. - Additional Measurements:ICAPSV/CCAPSV 1.88.ICAEDV/CCAEDV 2.03. Oxygen saturation, measured (05/23/2017 12:23 PM)Only the most recent of5 resultswithin the time period is included. Component Value Ref Range O2 Saturation (Measured) 94.5 % Specimen Performing Laboratory Blood - Line, Arterial [address] [address] Prealbumin (05/23/2017 12:23 PM)Only the most recent of2 resultswithin the time period is included. Component Value Ref Range Prealbumin 10 (L)Comment: Specimen slightly hemolyzed 14 - 45 mg/dL Specimen Performing Laboratory Blood - Line, Arterial [address] [address] Lactic acid, arterial, whole blood (05/21/2017 11:40 PM)Only the most recent of3 resultswithin the time period is included. Component Value Ref Range Lactate, Art 1.0Comment: Specimen slightly hemolyzed 0.5 - 2.2 mmol/L Specimen Performing Laboratory Blood, Arterial [address] [address] Narrative Effective 08/02/2015: Units/Reference Range Change New: 0.5-2.2 mmol/LPrevious: 5-20 mg/dL Limited 2D Echocardiogram (05/21/2017 12:10 PM)Only the most recent of2 resultswithin the time period is included. Component Value Ref Range Ejection Fraction Specimen Performing Laboratory [facility] ECHO [facility]ART[facility] MKCKESSON CPACS Narrative Transthoracic Echocardiography Report (TTE) Demographics Patient Name Elif GREER of Study 05/21/2017 BETO [id number] Female Visit Number [id number] Room Number 2C26 Number Date of Birth1955Referring Physician Bernardo Vargas Age62 year(s)Aircraft Powertrain Repairer Doug Frey, Interpreting Julien Panda MD Procedure [...] External Ris In - 05/21/2017 4:56 PM CHESS INSTRUCTOR Transthoracic Echocardiography Report (TTE) Demographics Patient Name CHRISTY GREER Date of Study 05/21/2017 BETO Gender Female Visit Number [id number] Race Unknown Room Number 2C26 Number Date of 1955 Referring Physician Bernardo Vargas Age 62 year(s) Aircraft Powertrain Repairer Doug Camp Head Of Music Pamela Frey, Interpreting Edith Jiménez [facility] Physician Procedure Type of Study TTE procedure:LIMITED [...] Laboratory BAL - Lung, Left Lower Lobe [facility] [address] [address] Narrative 1+ Normal respiratory todd present Organism [...] Tobramycin <=2: Susceptible Bordetella bronchiseptica Trimethoprim + Sulfamethoxazole <=40: Susceptible Body fluid cell count with differential (05/21/2017 [...] Fluid EDTA Tube Specimen [place] [address] ANESTHESIA DAVIS (05/20/2017 4:29 PM) Tushar Worley MD 05/20/20174:29 PM DAVIS Date: 05/20/2017 [...] Tushar Carroll MD - 05/20/2017 10:44 AM CHESS INSTRUCTOR Formatting of this note may be different [...] 0.0 - 5.0 % Specimen Performing Laboratory Blood [address] [address] Platelet count (05/20/2017 4:24 PM) Component Value Ref Range Platelets 136 (L) 150 - 450 K/CU MM Specimen Performing Laboratory Blood [address] [address] Blood gas, venous (05/20/2017 1:00 PM) Component [...] FIO2 80.0 % Specimen Performing Laboratory Blood [address] [address] Platelet Aggregation: Function Screen (05/19/2017 9:13 PM)Only the most recent of2 resultswithin the time period is included. Component Value Ref Range Weak ADP 63 60 - 91 % Plt. Function Screen Interpretation 60-100% indicates normal platelet function Pathologist: Toshia Post MD (electronic signature) Platelets 198 150 - 450 K/CU MM Specimen Performing Laboratory Blood - Arm, [address] [address] Narrative for patients on clopidogrel in past two weeks Hemoglobin A1c (05/19/2017 9:13 PM)Only the most recent of2 resultswithin the time period is included. Component Value Ref Range Hemoglobin A1C 10.6 (H) 4.3 - 6.1 % Specimen Performing Laboratory Blood - Arm, [address] [address] NM myocardial perfusion PET (rest and stress) (05/15/2017 11:01 AM) Specimen Performing Laboratory [facility] Narrative FINAL REPORT PROCEDURE:Rest/Stress MYOCARDIAL PERFUSION PET with regadenoson\\XA9\\ CPT CODE:77899 INDICATION:Defined extent and severity of known CAD [...] is 23%. LVEF at stress is 36%. [employer] CT images revealed a right pleural effusion [...] pericardial effusions. 7. No previous [facility] study for comparison. NONINVASIVE RISK STRATIFICATION: The above findings are considered high risk (>3% annual mortality rate) based on the following criteria: - Severe resting left ventricular dysfunction (LVEF 35%) - Stress-induced large perfusion defect (particularly if anterior) (JACC. 2012;59(9):857-81.) Signed: Natan Lopez MD Report Verified Date/Time:05/15/2017 16:28:12 Reading Location: [address] P[address] Reading Room Procedure Note Interface, External Ris In - 05/15/2017 4:30 PM CHESS INSTRUCTOR FINAL REPORT PROCEDURE: Rest/Stress MYOCARDIAL PERFUSION PET with regadenoson\\XA9\\ CPT CODE: 98995 INDICATION: Defined extent and severity of known [...] is 23%. LVEF at stress is 36%. [employer] CT images revealed a right pleural effusion [...] pericardial effusions. 7. No previous [facility] study for comparison. NONINVASIVE RISK STRATIFICATION: The above findings are considered high risk (>3% annual mortality rate) based on the following criteria: - Severe resting left ventricular dysfunction (LVEF 35%) - Stress-induced large perfusion defect (particularly if anterior) (JACC. 2012;59(9):611-80.) Signed: Natan Lopez MD Report Verified Date/Time: 05/15/2017 16:28:12 Reading Location: [address] Reading Room Renal with Doppler (05/15/2017 7:13 AM) Specimen Performing Laboratory [facility] Narrative FINAL REPORT Realtime Renal ultrasound with [...] MD Report Verified Date/Time:05/15/2017 11:04:01 Reading Location: [facility] B1 [id number] Ultrasound Reading Room Procedure Note Interface, External Ris In - 05/15/2017 11:06 AM CHESS INSTRUCTOR FINAL REPORT Realtime Renal ultrasound with Renal [...] Report Verified Date/Time: 05/15/2017 11:04:01 Reading Location: [place] [id number] Ultrasound Reading Room Hepatitis panel, acute (05/15/2017 3:35 AM) Component Value Ref Range Hep A IgM Nonreactive Nonreactive Hep B C IgM Nonreactive Nonreactive Hepatitis C Ab Nonreactive Nonreactive hepatitis B Surface Ag Nonreactive Nonreactive Specimen Performing Laboratory Blood - Arm, [address] [address] Complement Component C3 (05/15/2017 3:35 AM) Component Value Ref Range C3 Complement 103 82 - 193 mg/dL Specimen Performing Laboratory Blood - Arm, [address] [address] Complement Component C4 (05/15/2017 3:35 AM) Component Value Ref Range C4 Complement 28 15 - 57 mg/dL Specimen Performing Laboratory Blood - Arm, [address] [address] Uric acid (05/15/2017 3:35 AM) Component Value Ref Range Uric Acid 10.3 (H) 2.6 - 7.2 mg/dL Specimen Performing Laboratory Blood - Arm, [address] [address] Urine Protein Electrophoresis, random (05/14/2017 5:15 PM) Component Value Ref Range Protein, Urine 305 (H) 0 - 14 mg/dL Albumin %, Urine 70.9 % Globulin %, Urine 29.1 % UPEP,ID No monoclonal bands detected. Pathologist: Rocio Galindo MD (electronic signature) Specimen Performing Laboratory Urine [address] [address] Urine culture (05/14/2017 5:15 PM) Component Value Ref Range Result >100,000 col/mL skin todd Specimen Performing Laboratory Urine - Urine, Clean Catch [address] [address] HIV-1 Antigen with HIV-1/2 Antibody (05/14/2017 10:46 AM) Component Value Ref Range HIV-1 Antigen with HIV 1&2 Antibody Nonreactive Nonreactive Specimen Performing Laboratory Blood [address] [address] ROGER Titer & Pattern (05/14/2017 10:46 AM) Component Value Ref Range ROGER Titer 1:160 ROGER Pattern Speckled Specimen Performing Laboratory Blood [address] [address] Rheumatoid factor Ab, reflex to titer (05/14/2017 10:46 AM) Component Value Ref Range Rheumatoid Factor Negative Specimen Performing Laboratory Blood [address] [address] Anti-Nuclear Antibody (ROGER) (05/14/2017 10:46 AM) Component Value Ref Range ROGER Positive (A) Negative Specimen Performing Laboratory Blood [address] [address] Protein electrophoresis, serum (05/14/2017 10:46 AM) Component [...] 6.0 - 8.3 gm/dL Specimen Performing Laboratory Blood [address] [address] Electrolytes (05/13/2017 7:21 PM)Only the most recent of2 resultswithin the time period is included. Component Value Ref Range Sodium 136 136 - 145 meq/L Potassium 5.1Comment: Specimen slightly hemolyzed 3.5 - 5.1 meq/L Chloride 104 98 - 107 meq/L CO2 25 22 - 29 meq/L Specimen Performing Laboratory Blood - Arm, Left [address] [address] Narrative Call if K > 5 Arterial doppler legs bilateral (05/13/2017 6:10 PM) Component Value Ref Range Ejection Fraction Specimen Performing Laboratory [facility] ECHO HEARTLAB MK[facility]ON [facility] Impressions Right Impression 1. There is >50% [...] + + + + + + !Prox INFO PRINT PRESS OPERATOR ! !36.6! !Monophasic ! !64!10.2!Biphasic ! + + + + + + + + + + !Mid INFO PRINT PRESS OPERATOR ! !29.8! !Monophasic ! !35.2!7.38!Biphasic ! + + + + + + + + + + !Dist INFO PRINT PRESS OPERATOR ! !26.7! !Monophasic ! !30.2!! Monophasic ! [...] CHRISTY GREER Date of Study 05/13/2017 BETO [id number] Age 62 Visit Number [id number] Gender Female Accession Number [id number] [facility] of 1955 [facility] Number [id number] Physician SonographJulian Villa InterpretingGurmeet Perez MD, SPsician [facility] Procedure Type of Study: Extremities Arteries: Lower [...] External Ris In - 05/14/2017 4:51 AM CHESS INSTRUCTOR PV LAB - Lower Extremity Arterial Duplex Demographics Patient Name CHRISTY GREER Date of Study 05/13/2017 BETO Age 62 Visit Number [id number] Gender Female Accession Number [id number] Date of 1955 Referring Bernardo Beltranaurea Room Number C628 Physician Aircraft Powertrain Repairer Waylon Haritha Perez MD, RVS Physician RPVI Procedure Type [...] + + + +-------- + + !Prox INFO PRINT PRESS OPERATOR ! !36.6 ! !Monophasic ! !64 !10.2 !Biphasic ! + + + ------+ + + + +-------- + + !Mid INFO PRINT PRESS OPERATOR ! !29.8 ! !Monophasic ! !35.2 !7.38 !Biphasic ! + + + ------+ + + + +-------- + + !Dist INFO PRINT PRESS OPERATOR ! !26.7 ! !Monophasic ! !30.2 ! [...] mg/dL Specimen Performing Laboratory Blood - Arm, [address] [address] Creatinine (05/13/2017 3:57 AM) Component Value Ref Range Creatinine 1.73 (H) 0.57 - 1.25 mg/dL EGFR 30Comment: ESTIMATED GFR IS NOT ACCURATE mL/min/1.73 sq m CREATININE CLEARANCE IN PREDICTING GLOMERULAR FILTRATION RATE. ESTIMATED GFR IS NOT APPLICABLE FOR DIALYSIS PATIENTS. Specimen Performing Laboratory Blood - Arm, [address] [address] Creatine Kinase (CK), Total and MB (04/22/2017 12:02 AM) Component Value Ref Range Total CK 69 29 - 200 U/L CK-MB 4.3 0.0 - 6.6 ng/mL MB Relative Index 6.2 % Specimen Performing Laboratory Blood - Arm, Left [facility] [address] [address] Narrative CK-MB Reference Range: <6.7Normal 6.7-10.0Borderline >10.0 Abnormal after 10/01/2016
--- OUTSIDE RECORDS SUMMARY | 2017-10-02 16:23 | XMS REPORT ---
:1955 [facility] Address [address] [place] [address] Care Team Providers Name Role Phone RAJENDRA CORINA RICK Unavailable Unavailable LALITA BHAGAT Unavailable Unavailable ALFONSO VERDUZCO Unavailable Unavailable ANNA MCCONNELL Unavailable Unavailable AJITH FIERRO Unavailable Unavailable Problems This patient has no known problems. Allergies, Adverse Reactions, Alerts This patient has no known allergies or adverse reactions. Medications This patient has no known medications. Results Test Description Test Time Test Comments Text Results Atomic Results Result Comments POCT-GLUCOSE METER 2017-09-05 17:13:00 Test Item Value Reference Range Comments POC-GLUCOSE METER (BEAKER) (test 220 mg/dL 70-110 TESTED AT [facility] [address] [facility] oitw=3540) [facility] [address] BASIC METABOLIC [id number] 15:47:00 Test Item Value Reference Range Comments SODIUM (BEAKER) (test 135 meq/L 136-145 ckcy=966) POTASSIUM (BEAKER) (test 4.8 meq/L 3.5-5.1 qjiu=061) CHLORIDE (BEAKER) (test 102 meq/L 98-107 xslu=074) CO2 (BEAKER) (test 25 meq/L 22-29 hnaj=634) BLOOD UREA NITROGEN 51 mg/dL 7-21 (BEAKER) (test jeca=681) CREATININE (BEAKER) (test 1.99 mg/dL 0.57-1.25 nuud=718) GLUCOSE RANDOM (BEAKER) 201 mg/dL 70-105 (test lzsu=530) CALCIUM (BEAKER) (test 8.8 mg/dL 8.4-10.2 iwco=542) EGFR (BEAKER) (test 25 mL/min/1.73 sq m ESTIMATED GFR IS NOT ysfy=5680) ACCURATE CREATININE CLEARANCE IN PREDICTING GLOMERULAR FILTRATION RATE. ESTIMATED GFR IS NOT APPLICABLE FOR DIALYSIS PATIENTS. POCT-GLUCOSE [id number] 11:30:00 Test Item Value Reference Range Comments POC-GLUCOSE METER (BEAKER) 268 mg/dL 70-110 TESTED AT [facility] [address] [facility] (test aiya=1125) [facility] [address] POCT-GLUCOSE [id number] 07:08:00 Test Item Value Reference Range Comments POC-GLUCOSE METER (BEAKER) 208 mg/dL 70-110 TESTED AT [place] [id number] [facility] (test iuux=1136) [facility] [address] CALCIUM, [id number] 06:47:00 Test Item Value Reference Range Comments CALCIUM IONIZED (BEAKER) (test snsl=268) 1.11 mmol/L 1.12-1.27 PH, BLOOD (BEAKER) (test lrdc=7231) 7.40 BASIC METABOLIC [id number] 06:40:00 Test Item Value Reference Range Comments SODIUM (BEAKER) (test 134 meq/L 136-145 hrmp=174) POTASSIUM (BEAKER) (test 4.9 meq/L 3.5-5.1 ndtw=846) CHLORIDE (BEAKER) (test 103 meq/L 98-107 pcnf=436) CO2 (BEAKER) (test 24 meq/L 22-29 ihec=856) BLOOD UREA NITROGEN 53 mg/dL 7-21 (BEAKER) (test gkdq=780) CREATININE (BEAKER) (test 2.02 mg/dL 0.57-1.25 xuuh=558) GLUCOSE RANDOM (BEAKER) 186 mg/dL 70-105 (test xbbp=023) CALCIUM (BEAKER) (test 9.1 mg/dL 8.4-10.2 wema=303) EGFR (BEAKER) (test 25 mL/min/1.73 sq m ESTIMATED GFR IS NOT glmo=6009) ACCURATE CREATININE CLEARANCE IN PREDICTING GLOMERULAR FILTRATION RATE. ESTIMATED GFR IS NOT APPLICABLE FOR DIALYSIS PATIENTS. [id number] 06:33:00 Test Item Value Reference Range Comments PHOSPHORUS (BEAKER) (test lyik=562) 5.1 mg/dL 2.3-4.7 [id number] 06:33:00 Test Item Value Reference Range Comments MAGNESIUM (BEAKER) (test wgeo=101) 2.0 mg/dL 1.6-2.6 LACTIC ACID, VENOUS, WHOLE [id number] 06:02:00 Test Item Value Reference Range Comments LACTATE BLOOD VENOUS (2) (BEAKER) (test 0.8 mmol/L 0.5-2.2 aoub=1876) Effective 08/02/2015: Units/Reference Range ChangeNew: 0.5-2.2 mmol/L Previous: 5 -20 mg/dLCBC W/PLT COUNT & AUTO [id number] 05:54:00 Test Item Value Reference Range Comments WHITE BLOOD CELL COUNT (BEAKER) (test nwbm=721) 7.1 K/ L 3.5-10.5 RED BLOOD CELL COUNT (BEAKER) (test llht=816) 3.68 M/ L 3.93-5.22 HEMOGLOBIN (BEAKER) (test qcpt=191) 9.0 GM/DL 11.2-15.7 HEMATOCRIT (BEAKER) (test zuej=968) 29.6 % 34.1-44.9 MEAN CORPUSCULAR VOLUME (BEAKER) (test gfzl=623) 80.4 fL 79.4-94.8 MEAN CORPUSCULAR HEMOGLOBIN (BEAKER) (test 24.5 pg 25.6-32.2 pwfi=498) MEAN CORPUSCULAR HEMOGLOBIN CONC (BEAKER) (test 30.4 GM/DL 32.2-35.5 othy=984) RED CELL DISTRIBUTION WIDTH (BEAKER) (test 16.5 % 11.7-14.4 uxni=932) PLATELET COUNT (BEAKER) (test iyjq=542) 215 K/CU MM 150-450 MEAN PLATELET VOLUME (BEAKER) (test lsrd=204) 9.5 fL 9.4-12.3 NUCLEATED RED BLOOD CELLS (BEAKER) (test 0 /100 WBC 0-0 oywz=327) NEUTROPHILS RELATIVE PERCENT (BEAKER) (test 42 % wdta=512) LYMPHOCYTES RELATIVE PERCENT (BEAKER) (test 46 % zbgu=388) MONOCYTES RELATIVE PERCENT (BEAKER) (test 6 % oply=510) EOSINOPHILS RELATIVE PERCENT (BEAKER) (test 5 % etkk=094) BASOPHILS RELATIVE PERCENT (BEAKER) (test 1 % rjlh=012) NEUTROPHILS ABSOLUTE COUNT (BEAKER) (test 2.96 K/ L 1.56-6.13 hmtk=605) LYMPHOCYTES ABSOLUTE COUNT (BEAKER) (test 3.27 K/ L 1.18-3.74 pbkb=639) MONOCYTES ABSOLUTE COUNT (BEAKER) (test 0.41 K/ L 0.24-0.36 obeh=039) EOSINOPHILS ABSOLUTE COUNT (BEAKER) (test 0.34 K/ L 0.04-0.36 ilmr=313) BASOPHILS ABSOLUTE COUNT (BEAKER) (test 0.08 K/ L 0.01-0.08 zljj=039) IMMATURE GRANULOCYTES-RELATIVE PERCENT (BEAKER) 0 % 0-1 (test ztsj=6160) POCT-GLUCOSE [id number] 21:30:00 Test Item Value Reference Range Comments POC-GLUCOSE METER (BEAKER) 248 mg/dL 70-110 TESTED AT [address] (test fqae=5226) [facility] [address] RAD, [id number] 21:22:00Reason for exam:->fall, tailbone painFINAL REPORT RAD, SACRUM \T\ COCCYX, MIN 3 VIEWS CLINICAL INDICATION: fall, [...] acute fracture persists. Signed: Juan Francisco Talbot MDReport Verified Date/Time: 2017 21:22:03 Reading Location: [address] Reading Room POCT- GLUCOSE [id number] 17:37:00 Test Item Value Reference Range Comments POC-GLUCOSE METER (BEAKER) 222 mg/dL 70-110 TESTED AT [address] (test lytp=2043) [facility] [address] POCT-GLUCOSE [id number] 13:55:00 Test Item Value Reference Range Comments POC-GLUCOSE METER (BEAKER) 194 mg/dL 70-110 TESTED AT [facility] [address] [facility] (test jzse=8953) [facility] [address] POCT-GLUCOSE [id number] 12:34:00 Test Item Value Reference Range Comments POC-GLUCOSE METER (BEAKER) 229 mg/dL 70-110 TESTED AT [address] (test zwdn=7801) [facility] [address] POCT-GLUCOSE [id number] 08:00:00 Test Item Value Reference Range Comments POC-GLUCOSE METER (BEAKER) 159 mg/dL 70-110 TESTED AT [address] (test fzsm=8377) [facility] [address] CALCIUM, [id number] 06:00:00 Test Item Value Reference Range Comments CALCIUM IONIZED (BEAKER) (test bmlh=656) 1.05 mmol/L 1.12-1.27 PH, BLOOD (BEAKER) (test ilap=4952) 7.45 [id number] 05:59:00 Test Item Value Reference Range Comments PHOSPHORUS (BEAKER) (test vliy=798) 4.8 mg/dL 2.3-4.7 [id number] 05:59:00 Test Item Value Reference Range Comments MAGNESIUM (BEAKER) (test klae=407) 2.0 mg/dL 1.6-2.6 BASIC METABOLIC [id number] 05:59:00 Test Item Value Reference Range Comments SODIUM (BEAKER) (test 134 meq/L 136-145 rjjv=573) POTASSIUM (BEAKER) (test 4.4 meq/L 3.5-5.1 zbep=825) CHLORIDE (BEAKER) (test 103 meq/L 98-107 niaf=705) CO2 (BEAKER) (test 23 meq/L 22-29 yxvu=323) BLOOD UREA NITROGEN 49 mg/dL 7-21 (BEAKER) (test pifg=247) CREATININE (BEAKER) (test 1.69 mg/dL 0.57-1.25 qxrw=286) GLUCOSE RANDOM (BEAKER) 138 mg/dL 70-105 (test wygn=010) CALCIUM (BEAKER) (test 8.7 mg/dL 8.4-10.2 wcka=917) EGFR (BEAKER) (test 31 mL/min/1.73 sq m ESTIMATED GFR IS NOT trhl=3174) ACCURATE CREATININE CLEARANCE IN PREDICTING GLOMERULAR FILTRATION RATE. ESTIMATED GFR IS NOT APPLICABLE FOR DIALYSIS PATIENTS. CREATINE KINASE (CK)2017-09-04 05:59:00 Test Item Value Reference Range Comments CREATINE KINASE TOTAL (BEAKER) (test hjze=982) 45 U/L 29-200 CBC W/PLT COUNT & AUTO [id number] 05:32:00 Test Item Value Reference Range Comments WHITE BLOOD CELL COUNT (BEAKER) (test ojss=625) 6.1 K/ L 3.5-10.5 RED BLOOD CELL COUNT (BEAKER) (test pujj=248) 3.69 M/ L 3.93-5.22 HEMOGLOBIN (BEAKER) (test ocww=149) 8.8 GM/DL 11.2-15.7 HEMATOCRIT (BEAKER) (test pevw=998) 29.3 % 34.1-44.9 MEAN CORPUSCULAR VOLUME (BEAKER) (test vhzs=343) 79.4 fL 79.4-94.8 MEAN CORPUSCULAR HEMOGLOBIN (BEAKER) (test 23.8 pg 25.6-32.2 mlsk=468) MEAN CORPUSCULAR HEMOGLOBIN CONC (BEAKER) (test 30.0 GM/DL 32.2-35.5 smgo=778) RED CELL DISTRIBUTION WIDTH (BEAKER) (test 16.3 % 11.7-14.4 pgpi=618) PLATELET COUNT (BEAKER) (test voxl=751) 219 K/CU MM 150-450 MEAN PLATELET VOLUME (BEAKER) (test lrrl=753) 9.4 fL 9.4-12.3 NUCLEATED RED BLOOD CELLS (BEAKER) (test 0 /100 WBC 0-0 hbju=103) NEUTROPHILS RELATIVE PERCENT (BEAKER) (test 44 % iabc=134) LYMPHOCYTES RELATIVE PERCENT (BEAKER) (test 43 % lngq=124) MONOCYTES RELATIVE PERCENT (BEAKER) (test 6 % jaja=059) EOSINOPHILS RELATIVE PERCENT (BEAKER) (test 6 % ugfq=369) BASOPHILS RELATIVE PERCENT (BEAKER) (test 1 % zrzy=794) NEUTROPHILS ABSOLUTE COUNT (BEAKER) (test 2.67 K/ L 1.56-6.13 sxsc=022) LYMPHOCYTES ABSOLUTE COUNT (BEAKER) (test 2.66 K/ L 1.18-3.74 jhhc=832) MONOCYTES ABSOLUTE COUNT (BEAKER) (test 0.38 K/ L 0.24-0.36 lxex=343) EOSINOPHILS ABSOLUTE COUNT (BEAKER) (test 0.37 K/ L 0.04-0.36 ldgj=957) BASOPHILS ABSOLUTE COUNT (BEAKER) (test 0.05 K/ L 0.01-0.08 raaz=932) IMMATURE GRANULOCYTES-RELATIVE PERCENT (BEAKER) 0 % 0-1 (test wxyq=1009) POCT-GLUCOSE [id number] 20:36:00 Test Item Value Reference Range Comments POC-GLUCOSE METER (BEAKER) 211 mg/dL 70-110 TESTED AT [address] (test rnmw=9586) [place] [address] CREATININE, RANDOM [id number] 19:55:00 Test Item Value Reference Range Comments CREATININE URINE (BEAKER) (test rfxg=453) 16.1 mg/dL Reference Range: No NormalsPROTEIN, RANDOM [id number] 19:55:00 Test Item Value Reference Range Comments PROTEIN, URINE (BEAKER) (test typn=6581) 102 mg/dL 0-14 POCT-GLUCOSE [id number] 18:04:00 Test Item Value Reference Range Comments POC-GLUCOSE METER (BEAKER) 177 mg/dL 70-110 TESTED AT [address] (test dlgs=6227) [place] [address] POCT-GLUCOSE [id number] 11:59:00 Test Item Value Reference Range Comments POC-GLUCOSE METER (BEAKER) 244 mg/dL 70-110 TESTED AT [address] (test xhqb=8417) [place] [address] POCT-GLUCOSE [id number] 07:53:00 Test Item Value Reference Range Comments POC-GLUCOSE METER (BEAKER) 160 mg/dL 70-110 TESTED AT [address] (test xbkd=4600) [place] [address] BASIC METABOLIC [id number] 05:29:00 Test Item Value Reference Range Comments SODIUM (BEAKER) (test 136 meq/L 136-145 aacl=696) POTASSIUM (BEAKER) (test 4.5 meq/L 3.5-5.1 lmsi=575) CHLORIDE (BEAKER) (test 105 meq/L 98-107 prqk=043) CO2 (BEAKER) (test 24 meq/L 22-29 ijhp=253) BLOOD UREA NITROGEN 51 mg/dL 7-21 (BEAKER) (test zelz=310) CREATININE (BEAKER) (test 1.76 mg/dL 0.57-1.25 mdhu=673) GLUCOSE RANDOM (BEAKER) 149 mg/dL 70-105 (test osks=078) CALCIUM (BEAKER) (test 8.9 mg/dL 8.4-10.2 vajf=896) EGFR (BEAKER) (test 29 mL/min/1.73 sq m ESTIMATED GFR IS NOT ongm=1413) ACCURATE CREATININE CLEARANCE IN PREDICTING GLOMERULAR FILTRATION RATE. ESTIMATED GFR IS NOT APPLICABLE FOR DIALYSIS PATIENTS. [id number] 05:21:00 Test Item Value Reference Range Comments MAGNESIUM (BEAKER) (test mguk=313) 2.1 mg/dL 1.6-2.6 HEPATIC FUNCTION [id number] 05:21:00 Test Item Value Reference Range Comments TOTAL PROTEIN (BEAKER) (test zdds=913) 6.8 gm/dL 6.0-8.3 ALBUMIN (BEAKER) (test ubuz=0427) 2.9 g/dL 3.5-5.0 BILIRUBIN TOTAL (BEAKER) (test jnkq=860) 0.5 mg/dL 0.2-1.2 BILIRUBIN DIRECT (BEAKER) (test qrfb=751) 0.2 mg/dL 0.1-0.5 ALKALINE PHOSPHATASE (BEAKER) (test oasd=595) 173 U/L 40-150 AST (SGOT) (BEAKER) (test inxh=829) 25 U/L 5-34 ALT (SGPT) (BEAKER) (test yktf=702) 23 U/L 6-55 TROPONIN [id number] 05:18:00 Test Item Value Reference Range Comments TROPONIN I (BEAKER) (test qlxp=846) 0.05 ng/mL 0.00-0.03 Troponin I (TnI) levels [...] failure, acidosis, acute neurological disease, and persistent tachyarrhythmia.CBC W/PLT COUNT & AUTO [id number] 04:59:00 Test Item Value Reference Range Comments WHITE BLOOD CELL COUNT (BEAKER) (test mocg=317) 6.9 K/ L 3.5-10.5 RED BLOOD CELL COUNT (BEAKER) (test ygtw=234) 3.75 M/ L 3.93-5.22 HEMOGLOBIN (BEAKER) (test wned=234) 8.9 GM/DL 11.2-15.7 HEMATOCRIT (BEAKER) (test sajc=139) 29.7 % 34.1-44.9 MEAN CORPUSCULAR VOLUME (BEAKER) (test aufh=131) 79.2 fL 79.4-94.8 MEAN CORPUSCULAR HEMOGLOBIN (BEAKER) (test 23.7 pg 25.6-32.2 oagm=734) MEAN CORPUSCULAR HEMOGLOBIN CONC (BEAKER) (test 30.0 GM/DL 32.2-35.5 nryt=050) RED CELL DISTRIBUTION WIDTH (BEAKER) (test 16.2 % 11.7-14.4 vkum=808) PLATELET COUNT (BEAKER) (test aqfc=002) 240 K/CU MM 150-450 MEAN PLATELET VOLUME (BEAKER) (test mdnx=127) 9.6 fL 9.4-12.3 NUCLEATED RED BLOOD CELLS (BEAKER) (test 0 /100 WBC 0-0 qkgg=050) NEUTROPHILS RELATIVE PERCENT (BEAKER) (test 48 % mevy=809) LYMPHOCYTES RELATIVE PERCENT (BEAKER) (test 40 % xldc=950) MONOCYTES RELATIVE PERCENT (BEAKER) (test 6 % anxl=698) EOSINOPHILS RELATIVE PERCENT (BEAKER) (test 5 % rlcd=178) BASOPHILS RELATIVE PERCENT (BEAKER) (test 1 % zclk=496) NEUTROPHILS ABSOLUTE COUNT (BEAKER) (test 3.32 K/ L 1.56-6.13 pxiq=413) LYMPHOCYTES ABSOLUTE COUNT (BEAKER) (test 2.76 K/ L 1.18-3.74 zajl=669) MONOCYTES ABSOLUTE COUNT (BEAKER) (test 0.39 K/ L 0.24-0.36 kqsf=498) EOSINOPHILS ABSOLUTE COUNT (BEAKER) (test 0.36 K/ L 0.04-0.36 ujtc=598) BASOPHILS ABSOLUTE COUNT (BEAKER) (test 0.06 K/ L 0.01-0.08 zxif=189) IMMATURE GRANULOCYTES-RELATIVE PERCENT (BEAKER) 0 % 0-1 (test gicv=6998) TROPONIN [id number] 23:40:00 Test Item Value Reference Range Comments TROPONIN I (BEAKER) (test xzes=497) 0.04 ng/mL 0.00-0.03 Troponin I (TnI) levels must [...] acidosis, acute neurological disease, and persistent tachyarrhythmia.POCT-GLUCOSE [id number] 22:51:00 Test Item Value Reference Range Comments POC-GLUCOSE METER (BEAKER) 214 mg/dL 70-110 TESTED AT [address] (test fowb=5596) [facility] [address] RAD, CHEST, 1 VIEW, NON [id number] 21:42:00Reason for exam:->CHEST PAINShould this be performed at the bedside?->YesFINAL REPORT RAD, CHEST, 1 VIEW, NON DEPT INDICATION: CHEST PAIN COMPARISON: Chest x -ray 4 weeks ago TECHNIQUE: Single frontal view of the chest. IMPRESSION: Cardiomegaly.Mild pulmonary interstitial edema with a small right-sided effusion.No acute osseous abnormality. Signed: Dario Abraham MDReport Verified Date/Time: 09/02/2017 21:42:11 Reading Location: [address] Reading Room CREATININE, RANDOM [id number] 21:10:00 Test Item Value Reference Range Comments CREATININE URINE (BEAKER) (test vmpv=142) 35.5 mg/dL Reference Range: No NormalsSODIUM, RANDOM [id number] 21:10:00 Test Item Value Reference Range Comments SODIUM URINE (BEAKER) (test ljfw=203) 80 meq/L Reference Range: No NormalsURINALYSIS W/ [id number] 20:59:00 Test Item Value Reference Range Comments COLOR (BEAKER) (test unke=443) Light Yellow CLARITY (BEAKER) (test whkh=143) Clear SPECIFIC GRAVITY UA (BEAKER) (test pyox=303) 1.008 1.001-1.035 PH UA (BEAKER) (test kqxc=508) 6.5 5.0-8.0 PROTEIN UA (BEAKER) (test ejjk=655) 200 mg/dL Negative GLUCOSE UA (BEAKER) (test slda=480) 70 mg/dL Negative KETONES UA (BEAKER) (test bwsk=159) Negative Negative BILIRUBIN UA (BEAKER) (test xdbe=395) Negative Negative BLOOD UA (BEAKER) (test tqye=792) Negative Negative NITRITE UA (BEAKER) (test xmud=804) Negative Negative LEUKOCYTE ESTERASE UA (BEAKER) (test vqkw=701) Negative Negative UROBILINOGEN UA (BEAKER) (test nomg=085) 0.2 mg/dL 0.2-1.0 RBC UA (BEAKER) (test fftd=098) < /HPF WBC UA (BEAKER) (test hmse=958) 2 /HPF BACTERIA (BEAKER) (test oflx=358) Occasional MUCUS (BEAKER) (test lxld=9860) Rare SQUAMOUS EPITHELIAL (BEAKER) (test xpjc=547) 2 /HPF HYALINE CASTS (BEAKER) (test nddr=321) 7 /LPF SOURCE(BEAKER) (test ywsr=7505) BASIC METABOLIC [id number] 16:49:00 Test Item Value Reference Range Comments SODIUM (BEAKER) (test 134 meq/L 136-145 eppe=604) POTASSIUM (BEAKER) (test 4.8 meq/L 3.5-5.1 jsdi=576) CHLORIDE (BEAKER) (test 101 meq/L 98-107 nsrd=315) CO2 (BEAKER) (test 26 meq/L 22-29 becv=592) BLOOD UREA NITROGEN 53 mg/dL 7-21 (BEAKER) (test qxol=523) CREATININE (BEAKER) (test 2.04 mg/dL 0.57-1.25 vuxa=710) GLUCOSE RANDOM (BEAKER) 267 mg/dL 70-105 (test qtjk=095) CALCIUM (BEAKER) (test 9.1 mg/dL 8.4-10.2 xsho=173) EGFR (BEAKER) (test 25 mL/min/1.73 sq m ESTIMATED GFR IS NOT jydc=9684) ACCURATE CREATININE CLEARANCE IN PREDICTING GLOMERULAR FILTRATION RATE. ESTIMATED GFR IS NOT APPLICABLE FOR DIALYSIS PATIENTS. [id number] 16:38:00 Test Item Value Reference Range Comments PROTIME (BEAKER) (test vugb=995) 14.4 seconds 11.7-14.7 INR (BEAKER) (test auyv=550) 1.1 <=5.9 PARTIAL THROMBOPLASTIN TIME (BEAKER) (test 31.0 seconds 22.5-36.0 fvkq=105) RECOMMENDED COUMADIN/WARFARIN INR THERAPY RANGESSTANDARD DOSE: 2.0 - 3.0 Includes: PROPHYLAXIS forvenous thrombosis, systemic embolization; TREATMENT for venous thrombosis and/or pulmonary embolus.HIGH RISK: Target INR is 2.5-3.5 for patients with mechanical heart valves.CBC W/PLT COUNT & AUTO [id number] 16:26:00 Test Item Value Reference Range Comments WHITE BLOOD CELL COUNT (BEAKER) (test wzal=053) 6.3 K/ L 3.5-10.5 RED BLOOD CELL COUNT (BEAKER) (test uppq=032) 4.22 M/ L 3.93-5.22 HEMOGLOBIN (BEAKER) (test asqv=659) 10.1 GM/DL 11.2-15.7 HEMATOCRIT (BEAKER) (test txms=423) 33.4 % 34.1-44.9 MEAN CORPUSCULAR VOLUME (BEAKER) (test bisa=903) 79.1 fL 79.4-94.8 MEAN CORPUSCULAR HEMOGLOBIN (BEAKER) (test 23.9 pg 25.6-32.2 qida=582) MEAN CORPUSCULAR HEMOGLOBIN CONC (BEAKER) (test 30.2 GM/DL 32.2-35.5 hyaj=760) RED CELL DISTRIBUTION WIDTH (BEAKER) (test 16.1 % 11.7-14.4 xfsb=775) PLATELET COUNT (BEAKER) (test srvh=599) 252 K/CU MM 150-450 MEAN PLATELET VOLUME (BEAKER) (test vkrd=106) 9.5 fL 9.4-12.3 NUCLEATED RED BLOOD CELLS (BEAKER) (test 0 /100 WBC 0-0 yzmf=729) NEUTROPHILS RELATIVE PERCENT (BEAKER) (test 49 % xtbw=195) LYMPHOCYTES RELATIVE PERCENT (BEAKER) (test 38 % qetg=488) MONOCYTES RELATIVE PERCENT (BEAKER) (test 6 % iluk=101) EOSINOPHILS RELATIVE PERCENT (BEAKER) (test 5 % ppaq=856) BASOPHILS RELATIVE PERCENT (BEAKER) (test 1 % pmop=145) NEUTROPHILS ABSOLUTE COUNT (BEAKER) (test 3.08 K/ L 1.56-6.13 pugq=573) LYMPHOCYTES ABSOLUTE COUNT (BEAKER) (test 2.42 K/ L 1.18-3.74 qurj=937) MONOCYTES ABSOLUTE COUNT (BEAKER) (test 0.40 K/ L 0.24-0.36 cogx=403) EOSINOPHILS ABSOLUTE COUNT (BEAKER) (test 0.33 K/ L 0.04-0.36 prqc=990) BASOPHILS ABSOLUTE COUNT (BEAKER) (test 0.07 K/ L 0.01-0.08 xfun=558) IMMATURE GRANULOCYTES-RELATIVE PERCENT (BEAKER) 0 % 0-1 (test zkmy=0048) B-TYPE NATRIURETIC FACTOR (BNP)2017-09-02 13:47:00 Test Item Value Reference Range Comments B-TYPE NATRIURETIC PEPTIDE (BEAKER) (test 1942 pg/mL 0-100 itzy=520) BASIC METABOLIC [id number] 13:43:00 Test Item Value Reference Range Comments SODIUM (BEAKER) (test 134 meq/L 136-145 nurv=226) POTASSIUM (BEAKER) (test 5.2 meq/L 3.5-5.1 aqto=544) CHLORIDE (BEAKER) (test 101 meq/L 98-107 dugj=235) CO2 (BEAKER) (test 25 meq/L 22-29 wpkv=184) BLOOD UREA NITROGEN 55 mg/dL 7-21 (BEAKER) (test ljri=925) CREATININE (BEAKER) (test 2.09 mg/dL 0.57-1.25 wfty=438) GLUCOSE RANDOM (BEAKER) 317 mg/dL 70-105 (test kvra=694) CALCIUM (BEAKER) (test 9.2 mg/dL 8.4-10.2 ugpd=895) EGFR (BEAKER) (test 24 mL/min/1.73 sq m ESTIMATED GFR IS NOT bjdw=5808) ACCURATE CREATININE CLEARANCE IN PREDICTING GLOMERULAR FILTRATION RATE. ESTIMATED GFR IS NOT APPLICABLE FOR DIALYSIS PATIENTS. POCT-GLUCOSE [id number] 12:44:00 Test Item Value Reference Range Comments POC-GLUCOSE METER (BEAKER) 283 mg/dL 70-110 TESTED AT [facility] [address] [address] (test ntpt=3153) [facility] [address] CALCIUM, [id number] 07:03:00 Test Item Value Reference Range Comments CALCIUM IONIZED (BEAKER) (test rczn=252) 1.02 mmol/L 1.12-1.27 PH, BLOOD (BEAKER) (test gbdt=3019) 7.43 [id number] 05:28:00 Test Item Value Reference Range Comments PHOSPHORUS (BEAKER) (test qzqy=559) 3.3 mg/dL 2.3-4.7 [id number] 05:28:00 Test Item Value Reference Range Comments MAGNESIUM (BEAKER) (test almt=582) 1.5 mg/dL 1.6-2.6 BASIC METABOLIC [id number] 05:28:00 Test Item Value Reference Range Comments SODIUM (BEAKER) (test 135 meq/L 136-145 zoku=672) POTASSIUM (BEAKER) (test 3.9 meq/L 3.5-5.1 eiha=942) CHLORIDE (BEAKER) (test 101 meq/L 98-107 okwd=059) CO2 (BEAKER) (test 27 meq/L 22-29 ourj=673) BLOOD UREA NITROGEN 35 mg/dL 7-21 (BEAKER) (test bfhj=564) CREATININE (BEAKER) (test 1.37 mg/dL 0.57-1.25 wwrz=991) GLUCOSE RANDOM (BEAKER) 145 mg/dL 70-105 (test pgko=569) CALCIUM (BEAKER) (test 8.3 mg/dL 8.4-10.2 comn=596) EGFR (BEAKER) (test 39 mL/min/1.73 sq m ESTIMATED GFR IS NOT fbel=0535) ACCURATE CREATININE CLEARANCE IN PREDICTING GLOMERULAR FILTRATION RATE. ESTIMATED GFR IS NOT APPLICABLE FOR DIALYSIS PATIENTS. CBC W/PLT COUNT & AUTO [id number] 05:06:00 Test Item Value Reference Range Comments WHITE BLOOD CELL COUNT (BEAKER) (test qhsz=422) 9.3 K/ L 3.5-10.5 RED BLOOD CELL COUNT (BEAKER) (test ysoh=168) 3.64 M/ L 3.93-5.22 HEMOGLOBIN (BEAKER) (test xfwu=395) 8.7 GM/DL 11.2-15.7 HEMATOCRIT (BEAKER) (test zyof=298) 28.5 % 34.1-44.9 MEAN CORPUSCULAR VOLUME (BEAKER) (test vbks=595) 78.3 fL 79.4-94.8 MEAN CORPUSCULAR HEMOGLOBIN (BEAKER) (test 23.9 pg 25.6-32.2 oxiy=424) MEAN CORPUSCULAR HEMOGLOBIN CONC (BEAKER) (test 30.5 GM/DL 32.2-35.5 uyjq=716) RED CELL DISTRIBUTION WIDTH (BEAKER) (test 14.6 % 11.7-14.4 tdqh=643) PLATELET COUNT (BEAKER) (test lwat=080) 336 K/CU MM 150-450 MEAN PLATELET VOLUME (BEAKER) (test nsay=566) 9.3 fL 9.4-12.3 NUCLEATED RED BLOOD CELLS (BEAKER) (test 0 /100 WBC 0-0 jyrx=614) NEUTROPHILS RELATIVE PERCENT (BEAKER) (test 50 % alyr=271) LYMPHOCYTES RELATIVE PERCENT (BEAKER) (test 40 % jlrz=979) MONOCYTES RELATIVE PERCENT (BEAKER) (test 6 % sxvy=480) EOSINOPHILS RELATIVE PERCENT (BEAKER) (test 3 % lccn=656) BASOPHILS RELATIVE PERCENT (BEAKER) (test 1 % erhi=167) NEUTROPHILS ABSOLUTE COUNT (BEAKER) (test 4.66 K/ L 1.56-6.13 jhwq=940) LYMPHOCYTES ABSOLUTE COUNT (BEAKER) (test 3.71 K/ L 1.18-3.74 mhmx=405) MONOCYTES ABSOLUTE COUNT (BEAKER) (test 0.53 K/ L 0.24-0.36 utdt=878) EOSINOPHILS ABSOLUTE COUNT (BEAKER) (test 0.31 K/ L 0.04-0.36 kxyf=007) BASOPHILS ABSOLUTE COUNT (BEAKER) (test 0.07 K/ L 0.01-0.08 ymwc=219) IMMATURE GRANULOCYTES-RELATIVE PERCENT (BEAKER) 1 % 0-1 (test inqf=7591) POCT-GLUCOSE [id number] 21:08:00 Test Item Value Reference Range Comments POC-GLUCOSE METER (BEAKER) 202 mg/dL 70-110 TESTED AT [address] (test lkan=1397) [facility] [address] POCT-GLUCOSE [id number] 16:50:00 Test Item Value Reference Range Comments POC-GLUCOSE METER (BEAKER) 287 mg/dL 70-110 TESTED AT [address] (test rsuz=0181) [facility] [address] POCT-GLUCOSE [id number] 12:21:00 Test Item Value Reference Range Comments POC-GLUCOSE METER (BEAKER) 213 mg/dL 70-110 TESTED AT [address] (test jwau=7099) [facility] [address] POCT-GLUCOSE [id number] 08:28:00 Test Item Value Reference Range Comments POC-GLUCOSE METER (BEAKER) 178 mg/dL 70-110 TESTED AT [address] (test ndmx=8950) [facility] [address] CALCIUM, [id number] 07:06:00 Test Item Value Reference Range Comments CALCIUM IONIZED (BEAKER) (test wsue=085) 0.99 mmol/L 1.12-1.27 PH, BLOOD (BEAKER) (test anpg=6929) 7.42 [id number] 05:37:00 Test Item Value Reference Range Comments PHOSPHORUS (BEAKER) (test qfno=938) 3.5 mg/dL 2.3-4.7 [id number] 05:37:00 Test Item Value Reference Range Comments MAGNESIUM (BEAKER) (test pptl=275) 1.6 mg/dL 1.6-2.6 BASIC METABOLIC [id number] 05:37:00 Test Item Value Reference Range Comments SODIUM (BEAKER) (test 133 meq/L 136-145 ohwf=668) POTASSIUM (BEAKER) (test 3.8 meq/L 3.5-5.1 jppm=658) CHLORIDE (BEAKER) (test 101 meq/L 98-107 cwyl=833) CO2 (BEAKER) (test 25 meq/L 22-29 wyfo=924) BLOOD UREA NITROGEN 39 mg/dL 7-21 (BEAKER) (test enxa=002) CREATININE (BEAKER) (test 1.42 mg/dL 0.57-1.25 fqfn=458) GLUCOSE RANDOM (BEAKER) 200 mg/dL 70-105 (test avqj=158) CALCIUM (BEAKER) (test 8.0 mg/dL 8.4-10.2 djga=183) EGFR (BEAKER) (test 37 mL/min/1.73 sq m ESTIMATED GFR IS NOT nuop=3088) ACCURATE CREATININE CLEARANCE IN PREDICTING GLOMERULAR FILTRATION RATE. ESTIMATED GFR IS NOT APPLICABLE FOR DIALYSIS PATIENTS. CBC W/PLT COUNT & AUTO [id number] 05:07:00 Test Item Value Reference Range Comments WHITE BLOOD CELL COUNT (BEAKER) (test mqwt=405) 9.2 K/ L 3.5-10.5 RED BLOOD CELL COUNT (BEAKER) (test spad=280) 3.69 M/ L 3.93-5.22 HEMOGLOBIN (BEAKER) (test htud=719) 8.8 GM/DL 11.2-15.7 HEMATOCRIT (BEAKER) (test xsnz=928) 28.8 % 34.1-44.9 MEAN CORPUSCULAR VOLUME (BEAKER) (test pcma=803) 78.0 fL 79.4-94.8 MEAN CORPUSCULAR HEMOGLOBIN (BEAKER) (test 23.8 pg 25.6-32.2 qtkw=102) MEAN CORPUSCULAR HEMOGLOBIN CONC (BEAKER) (test 30.6 GM/DL 32.2-35.5 vyul=202) RED CELL DISTRIBUTION WIDTH (BEAKER) (test 14.6 % 11.7-14.4 zawb=039) PLATELET COUNT (BEAKER) (test qcnt=317) 308 K/CU MM 150-450 MEAN PLATELET VOLUME (BEAKER) (test ikyr=191) 9.3 fL 9.4-12.3 NUCLEATED RED BLOOD CELLS (BEAKER) (test 0 /100 WBC 0-0 befg=090) NEUTROPHILS RELATIVE PERCENT (BEAKER) (test 61 % twct=953) LYMPHOCYTES RELATIVE PERCENT (BEAKER) (test 30 % tsrh=620) MONOCYTES RELATIVE PERCENT (BEAKER) (test 5 % ljqz=388) EOSINOPHILS RELATIVE PERCENT (BEAKER) (test 3 % roco=220) BASOPHILS RELATIVE PERCENT (BEAKER) (test 0 % lrms=571) NEUTROPHILS ABSOLUTE COUNT (BEAKER) (test 5.67 K/ L 1.56-6.13 arkd=919) LYMPHOCYTES ABSOLUTE COUNT (BEAKER) (test 2.72 K/ L 1.18-3.74 nytp=567) MONOCYTES ABSOLUTE COUNT (BEAKER) (test 0.48 K/ L 0.24-0.36 olht=749) EOSINOPHILS ABSOLUTE COUNT (BEAKER) (test 0.26 K/ L 0.04-0.36 fnrk=945) BASOPHILS ABSOLUTE COUNT (BEAKER) (test 0.04 K/ L 0.01-0.08 ifsm=737) IMMATURE GRANULOCYTES-RELATIVE PERCENT (BEAKER) 1 % 0-1 (test byqo=2139) POCT-GLUCOSE [id number] 21:24:00 Test Item Value Reference Range Comments POC-GLUCOSE METER (BEAKER) 255 mg/dL 70-110 TESTED AT [address] (test qxhz=8661) [place] [id number] POCT-GLUCOSE [id number] 17:11:00 Test Item Value Reference Range Comments POC-GLUCOSE METER (BEAKER) 244 mg/dL 70-110 TESTED AT [address] (test rqfc=5150) [facility] [address] POCT-GLUCOSE [id number] 11:54:00 Test Item Value Reference Range Comments POC-GLUCOSE METER (BEAKER) 209 mg/dL 70-110 TESTED AT [address] (test umjf=1260) [place] [id number] POCT-GLUCOSE [id number] 08:15:00 Test Item Value Reference Range Comments POC-GLUCOSE METER (BEAKER) 132 mg/dL 70-110 TESTED AT [address] (test gbkm=2149) [facility] [address] RAD, CHEST, 1 VIEW, NON [id number] 07:44:00Reason for exam:->edemaShould this be performed at the bedside?->YesFINAL REPORT Chest one view AP 08/07/2017 7:44 AM CLINICAL INDICATION: edema COMPARISON: 2017 IMPRESSION: Cardiomediastinal contours are stable. There is mild pulmonary edema,asymmetric to the right. There are trace bilateral pleural effusions, with bibasilar linear atelectasis. Sternotomy wires remain midline. Signed: Eder Cespedes Verified Date/Time: 08/07/2017 07:44:22 Reading Location: [facility] Radiology Reading Room [id number] 05:30:00 Test Item Value Reference Range Comments FERRITIN (BEAKER) (test tbdf=873) 87 ng/mL 5-275 CBC W/PLT COUNT & AUTO [id number] 05:21:00 Test Item Value Reference Range Comments WHITE BLOOD CELL COUNT (BEAKER) (test yjao=521) 12.4 K/ L 3.5-10.5 RED BLOOD CELL COUNT (BEAKER) (test wxim=487) 3.78 M/ L 3.93-5.22 HEMOGLOBIN (BEAKER) (test qwfy=341) 9.0 GM/DL 11.2-15.7 HEMATOCRIT (BEAKER) (test khtf=737) 29.3 % 34.1-44.9 MEAN CORPUSCULAR VOLUME (BEAKER) (test aaep=500) 77.5 fL 79.4-94.8 MEAN CORPUSCULAR HEMOGLOBIN (BEAKER) (test 23.8 pg 25.6-32.2 vrvi=495) MEAN CORPUSCULAR HEMOGLOBIN CONC (BEAKER) (test 30.7 GM/DL 32.2-35.5 pxao=263) RED CELL DISTRIBUTION WIDTH (BEAKER) (test 14.7 % 11.7-14.4 gcsx=365) PLATELET COUNT (BEAKER) (test lgng=964) 316 K/CU MM 150-450 MEAN PLATELET VOLUME (BEAKER) (test azjn=590) 9.6 fL 9.4-12.3 NUCLEATED RED BLOOD CELLS (BEAKER) (test 0 /100 WBC 0-0 rygj=205) NEUTROPHILS RELATIVE PERCENT (BEAKER) (test 72 % lnwx=491) LYMPHOCYTES RELATIVE PERCENT (BEAKER) (test 20 % byzd=266) MONOCYTES RELATIVE PERCENT (BEAKER) (test 5 % vkwb=703) EOSINOPHILS RELATIVE PERCENT (BEAKER) (test 2 % mhjb=957) BASOPHILS RELATIVE PERCENT (BEAKER) (test 1 % ctzr=314) NEUTROPHILS ABSOLUTE COUNT (BEAKER) (test 8.93 K/ L 1.56-6.13 ouhh=305) LYMPHOCYTES ABSOLUTE COUNT (BEAKER) (test 2.51 K/ L 1.18-3.74 bfbd=715) MONOCYTES ABSOLUTE COUNT (BEAKER) (test 0.58 K/ L 0.24-0.36 mezw=264) EOSINOPHILS ABSOLUTE COUNT (BEAKER) (test 0.23 K/ L 0.04-0.36 dwwq=843) BASOPHILS ABSOLUTE COUNT (BEAKER) (test 0.07 K/ L 0.01-0.08 eknm=123) IMMATURE GRANULOCYTES-RELATIVE PERCENT (BEAKER) 1 % 0-1 (test hgqb=4815) IRON, TIBC, % SAT. (WITHOUT FERRITIN)2017-08-07 05:16:00 Test Item Value Reference Range Comments IRON (BEAKER) (test jrwk=481) 21 ug/dL 40-160 TOTAL IRON BINDING CAPACITY (BEAKER) (test 184 ug/dL 250-450 iznv=158) IRON % SATURATION (2) (BEAKER) (test cohe=3156) 11 % 20-55 [id number] 05:11:00 Test Item Value Reference Range Comments PHOSPHORUS (BEAKER) (test buty=871) 3.6 mg/dL 2.3-4.7 [id number] 05:11:00 Test Item Value Reference Range Comments MAGNESIUM (BEAKER) (test xcyz=435) 2.0 mg/dL 1.6-2.6 BASIC METABOLIC [id number] 05:11:00 Test Item Value Reference Range Comments SODIUM (BEAKER) (test 134 meq/L 136-145 alcc=331) POTASSIUM (BEAKER) (test 3.9 meq/L 3.5-5.1 salr=848) CHLORIDE (BEAKER) (test 102 meq/L 98-107 frmy=383) CO2 (BEAKER) (test 23 meq/L 22-29 dxrr=662) BLOOD UREA NITROGEN 41 mg/dL 7-21 (BEAKER) (test wopb=869) CREATININE (BEAKER) (test 1.63 mg/dL 0.57-1.25 qxev=659) GLUCOSE RANDOM (BEAKER) 124 mg/dL 70-105 (test zyup=944) CALCIUM (BEAKER) (test 8.3 mg/dL 8.4-10.2 srag=803) EGFR (BEAKER) (test 32 mL/min/1.73 sq m ESTIMATED GFR IS NOT dsxr=1259) ACCURATE CREATININE CLEARANCE IN PREDICTING GLOMERULAR FILTRATION RATE. ESTIMATED GFR IS NOT APPLICABLE FOR DIALYSIS PATIENTS. B-TYPE NATRIURETIC FACTOR (BNP)2017-08-07 05:05:00 Test Item Value Reference Range Comments B-TYPE NATRIURETIC PEPTIDE (BEAKER) (test 1561 pg/mL 0-100 ikav=022) CALCIUM, [id number] 04:58:00 Test Item Value Reference Range Comments CALCIUM IONIZED (BEAKER) (test uaxl=382) 1.04 mmol/L 1.12-1.27 PH, BLOOD (BEAKER) (test sszg=1683) 7.41 RETICULOCYTE [id number] 04:51:00 Test Item Value Reference Range Comments RETICULOCYTE COUNT PCT (BEAKER) (test pxca=505) 1.2 % 0.5-1.7 POCT-GLUCOSE [id number] 20:49:00 Test Item Value Reference Range Comments POC-GLUCOSE METER (BEAKER) 202 mg/dL 70-110 TESTED AT [facility] [address] [facility] [facility] (test abop=2964) [facility] [address] CREATININE, RANDOM [id number] 18:38:00 Test Item Value Reference Range Comments CREATININE URINE (BEAKER) (test ydiq=508) 56.3 mg/dL Reference Range: No NormalsPROTEIN, RANDOM [id number] 18:38:00 Test Item Value Reference Range Comments PROTEIN, URINE (BEAKER) (test ucrl=7762) 189 mg/dL 0-14 URINALYSIS W/ [id number] 18:34:00 Test Item Value Reference Range Comments COLOR (BEAKER) (test tvga=138) Light Yellow CLARITY (BEAKER) (test hvob=487) Hazy SPECIFIC GRAVITY UA (BEAKER) (test dalf=942) 1.008 1.001-1.035 PH UA (BEAKER) (test kcvu=966) 5.5 5.0-8.0 PROTEIN UA (BEAKER) (test cogj=239) 100 mg/dL Negative GLUCOSE UA (BEAKER) (test uyet=294) 30 mg/dL Negative KETONES UA (BEAKER) (test cdcp=957) Negative Negative BILIRUBIN UA (BEAKER) (test towe=740) Negative Negative BLOOD UA (BEAKER) (test qtqu=058) Negative Negative NITRITE UA (BEAKER) (test xmro=624) Negative Negative LEUKOCYTE ESTERASE UA (BEAKER) (test yunr=160) Negative Negative UROBILINOGEN UA (BEAKER) (test nfye=826) 0.2 mg/dL 0.2-1.0 RBC UA (BEAKER) (test iugd=677) < /HPF WBC UA (BEAKER) (test gezq=892) 2 /HPF BACTERIA (BEAKER) (test qbha=021) Rare MUCUS (BEAKER) (test jdwp=1236) Rare SQUAMOUS EPITHELIAL (BEAKER) (test xped=000) 8 /HPF SOURCE(BEAKER) (test yjwn=5986) Urine, Voided POCT-GLUCOSE [id number] 17:38:00 Test Item Value Reference Range Comments POC-GLUCOSE METER (BEAKER) 143 mg/dL 70-110 TESTED AT [address] (test blxr=9802) [place] [address] POCT-GLUCOSE [id number] 12:30:00 Test Item Value Reference Range Comments POC-GLUCOSE METER (BEAKER) 218 mg/dL 70-110 TESTED AT [address] (test pjxj=4756) [place] [address] POCT-GLUCOSE [id number] 08:00:00 Test Item Value Reference Range Comments POC-GLUCOSE METER (BEAKER) 134 mg/dL 70-110 TESTED AT [address] (test uptq=2381) [place] [address] CBC W/PLT COUNT & AUTO [id number] 04:23:00 Test Item Value Reference Range Comments WHITE BLOOD CELL COUNT (BEAKER) (test yspe=449) 13.9 K/ L 3.5-10.5 RED BLOOD CELL COUNT (BEAKER) (test kzoa=923) 3.23 M/ L 3.93-5.22 HEMOGLOBIN (BEAKER) (test beyo=999) 7.6 GM/DL 11.2-15.7 HEMATOCRIT (BEAKER) (test keeo=878) 25.3 % 34.1-44.9 MEAN CORPUSCULAR VOLUME (BEAKER) (test xodl=798) 78.3 fL 79.4-94.8 MEAN CORPUSCULAR HEMOGLOBIN (BEAKER) (test 23.5 pg 25.6-32.2 tzmq=631) MEAN CORPUSCULAR HEMOGLOBIN CONC (BEAKER) (test 30.0 GM/DL 32.2-35.5 kxsy=937) RED CELL DISTRIBUTION WIDTH (BEAKER) (test 14.8 % 11.7-14.4 uydw=869) PLATELET COUNT (BEAKER) (test dqey=778) 284 K/CU MM 150-450 MEAN PLATELET VOLUME (BEAKER) (test syam=292) 9.8 fL 9.4-12.3 NUCLEATED RED BLOOD CELLS (BEAKER) (test 0 /100 WBC 0-0 wuac=733) NEUTROPHILS RELATIVE PERCENT (BEAKER) (test 77 % yjyc=566) LYMPHOCYTES RELATIVE PERCENT (BEAKER) (test 16 % xnxb=074) MONOCYTES RELATIVE PERCENT (BEAKER) (test 4 % ftid=224) EOSINOPHILS RELATIVE PERCENT (BEAKER) (test 2 % aoki=191) BASOPHILS RELATIVE PERCENT (BEAKER) (test 1 % fipp=840) NEUTROPHILS ABSOLUTE COUNT (BEAKER) (test 10.70 K/ L 1.56-6.13 gian=005) LYMPHOCYTES ABSOLUTE COUNT (BEAKER) (test 2.17 K/ L 1.18-3.74 grfl=366) MONOCYTES ABSOLUTE COUNT (BEAKER) (test 0.57 K/ L 0.24-0.36 bklm=939) EOSINOPHILS ABSOLUTE COUNT (BEAKER) (test 0.30 K/ L 0.04-0.36 azkb=234) BASOPHILS ABSOLUTE COUNT (BEAKER) (test 0.08 K/ L 0.01-0.08 fdke=548) IMMATURE GRANULOCYTES-RELATIVE PERCENT (BEAKER) 1 % 0-1 (test stpa=2653) BASIC METABOLIC [id number] 04:13:00 Test Item Value Reference Range Comments SODIUM (BEAKER) (test 134 meq/L 136-145 szbn=408) POTASSIUM (BEAKER) (test 4.6 meq/L 3.5-5.1 sfaq=816) CHLORIDE (BEAKER) (test 103 meq/L 98-107 xxbc=619) CO2 (BEAKER) (test 23 meq/L 22-29 spwo=523) BLOOD UREA NITROGEN 43 mg/dL 7-21 (BEAKER) (test mnpg=770) CREATININE (BEAKER) (test 1.79 mg/dL 0.57-1.25 nlhz=529) GLUCOSE RANDOM (BEAKER) 123 mg/dL 70-105 (test qhkx=289) CALCIUM (BEAKER) (test 8.1 mg/dL 8.4-10.2 ugrb=419) EGFR (BEAKER) (test 29 mL/min/1.73 sq m ESTIMATED GFR IS NOT ehes=1109) ACCURATE CREATININE CLEARANCE IN PREDICTING GLOMERULAR FILTRATION RATE. ESTIMATED GFR IS NOT APPLICABLE FOR DIALYSIS PATIENTS. [id number] 04:10:00 Test Item Value Reference Range Comments PHOSPHORUS (BEAKER) (test mqxl=891) 4.9 mg/dL 2.3-4.7 [id number] 04:10:00 Test Item Value Reference Range Comments MAGNESIUM (BEAKER) (test qicj=835) 1.4 mg/dL 1.6-2.6 [id number] 04:08:00 Test Item Value Reference Range Comments FIBRINOGEN LEVEL (BEAKER) (test tlro=162) 548 mg/dl 225-434 [id number] 04:08:00 Test Item Value Reference Range Comments PARTIAL THROMBOPLASTIN TIME (BEAKER) (test 37.7 seconds 22.5-36.0 uuof=973) PROTHROMBIN [id number] 04:07:00 Test Item Value Reference Range Comments PROTIME (BEAKER) (test appa=305) 16.2 seconds 11.7-14.7 INR (BEAKER) (test chay=657) 1.3 <=5.9 RECOMMENDED COUMADIN/WARFARIN INR THERAPY RANGESSTANDARD DOSE: 2.0 - 3.0 Includes: PROPHYLAXIS forvenous thrombosis, systemic embolization; TREATMENT for venous thrombosis and/or pulmonary embolus.HIGH RISK: Target INR is 2.5-3.5 for patients with mechanical heart valves.[id number] 16:59:00 Test Item Value Reference Range Comments ACTIVATED CLOTTING TIME 219 sec TESTED AT [facility] [address] (BEAKER) (test oyyq=223) [facility] [address] BASIC METABOLIC [id number] 14:25:00 Test Item Value Reference Range Comments SODIUM (BEAKER) (test 134 meq/L 136-145 xctx=451) POTASSIUM (BEAKER) (test 4.4 meq/L 3.5-5.1 ppgw=758) CHLORIDE (BEAKER) (test 103 meq/L 98-107 mdkl=798) CO2 (BEAKER) (test 22 meq/L 22-29 hkzw=532) BLOOD UREA NITROGEN 46 mg/dL 7-21 (BEAKER) (test ltlf=532) CREATININE (BEAKER) (test 2.16 mg/dL 0.57-1.25 wxcl=751) GLUCOSE RANDOM (BEAKER) 160 mg/dL 70-105 (test zika=197) CALCIUM (BEAKER) (test 7.8 mg/dL 8.4-10.2 yxpo=223) EGFR (BEAKER) (test 23 mL/min/1.73 sq m ESTIMATED GFR IS NOT etpy=8090) ACCURATE CREATININE CLEARANCE IN PREDICTING GLOMERULAR FILTRATION RATE. ESTIMATED GFR IS NOT APPLICABLE FOR DIALYSIS PATIENTS. POCT-GLUCOSE [id number] 13:21:00 Test Item Value Reference Range Comments POC-GLUCOSE METER (BEAKER) 170 mg/dL 70-110 TESTED AT [facility] [address] [facility] [address] (test jddw=0701) [facility] [address] POTASSIUM-STAT [id number] 13:20:00 Test Item Value Reference Range Comments POTASSIUM (BEAKER) (test pscf=977) 4.2 meq/L 3.6-5.5 SODIUM NA-STAT [id number] 13:20:00 Test Item Value Reference Range Comments SODIUM (BEAKER) (test xzac=520) 133 meq/L 135-148 HGB/HCT (H&H) - STAT [id number] 12:34:00 Test Item Value Reference Range Comments HEMOGLOBIN (BEAKER) (test jqer=734) 10.8 g/dL 12.0-15.0 HEMATOCRIT (BEAKER) (test zlyp=802) 32.0 % 36.0-45.0 POTASSIUM-STAT [id number] 08:15:00 Test Item Value Reference Range Comments POTASSIUM (BEAKER) (test bqqd=411) 4.1 meq/L 3.6-5.5 BLOOD GAS, [id number] 08:15:00 Test Item Value Reference Range Comments PH ARTERIAL (BEAKER) (test jkza=879) 7.36 7.35-7.45 PCO2 ARTERIAL (BEAKER) (test ymym=197) 47 mmHg 35-45 PO2 ARTERIAL (BEAKER) (test bzdl=388) 213 mmHg 80-90 O2 SATURATION ARTERIAL (BEAKER) (test hqzg=167) 99.4 % 96.0-97.0 HCO3 ARTERIAL (BEAKER) (test xhyr=809) 26 mmol/L 21-29 BASE EXCESS ARTERIAL (BEAKER) (test ijic=607) 0.3 mmol/L -2.0-3.0 PATIENT TEMPERATURE (BEAKER) (test ueut=5284) 37.2 C FIO2 (BEAKER) (test vreq=1652) 70.0 % SODIUM NA-STAT [id number] 08:15:00 Test Item Value Reference Range Comments SODIUM (BEAKER) (test yavb=231) 130 meq/L 135-148 GLUCOSE-STAT [id number] 08:15:00 Test Item Value Reference Range Comments GLUCOSE RANDOM (BEAKER) (test uych=913) 172 mg/dL 70-110 HGB/HCT (H&H) - STAT [id number] 08:15:00 Test Item Value Reference Range Comments HEMOGLOBIN (BEAKER) (test erpm=398) 8.8 g/dL 12.0-15.0 HEMATOCRIT (BEAKER) (test yqeq=199) 26.0 % 36.0-45.0 BASIC METABOLIC [id number] 07:37:00 Test Item Value Reference Range Comments SODIUM (BEAKER) (test 135 meq/L 136-145 hcnt=539) POTASSIUM (BEAKER) (test 4.4 meq/L 3.5-5.1 rgbh=202) CHLORIDE (BEAKER) (test 100 meq/L 98-107 pnif=621) CO2 (BEAKER) (test 23 meq/L 22-29 nclz=017) BLOOD UREA NITROGEN 46 mg/dL 7-21 (BEAKER) (test rmxs=986) CREATININE (BEAKER) (test 1.98 mg/dL 0.57-1.25 svql=802) GLUCOSE RANDOM (BEAKER) 188 mg/dL 70-105 (test kbto=011) CALCIUM (BEAKER) (test 8.9 mg/dL 8.4-10.2 nfpf=961) EGFR (BEAKER) (test 26 mL/min/1.73 sq m ESTIMATED GFR IS NOT xcul=3582) ACCURATE CREATININE CLEARANCE IN PREDICTING GLOMERULAR FILTRATION RATE. ESTIMATED GFR IS NOT APPLICABLE FOR DIALYSIS PATIENTS. CBC W/PLT COUNT & AUTO [id number] 07:20:00 Test Item Value Reference Range Comments WHITE BLOOD CELL COUNT (BEAKER) (test mzrv=075) 20.2 K/ L 3.5-10.5 RED BLOOD CELL COUNT (BEAKER) (test glos=413) 3.86 M/ L 3.93-5.22 HEMOGLOBIN (BEAKER) (test fuqn=488) 9.1 GM/DL 11.2-15.7 HEMATOCRIT (BEAKER) (test qrvi=361) 29.4 % 34.1-44.9 MEAN CORPUSCULAR VOLUME (BEAKER) (test ynpk=963) 76.2 fL 79.4-94.8 MEAN CORPUSCULAR HEMOGLOBIN (BEAKER) (test 23.6 pg 25.6-32.2 cppf=818) MEAN CORPUSCULAR HEMOGLOBIN CONC (BEAKER) (test 31.0 GM/DL 32.2-35.5 iqrl=547) RED CELL DISTRIBUTION WIDTH (BEAKER) (test 14.9 % 11.7-14.4 hcwp=868) PLATELET COUNT (BEAKER) (test eoau=863) 343 K/CU MM 150-450 MEAN PLATELET VOLUME (BEAKER) (test xmje=340) 9.5 fL 9.4-12.3 NUCLEATED RED BLOOD CELLS (BEAKER) (test 0 /100 WBC 0-0 ihpd=848) NEUTROPHILS RELATIVE PERCENT (BEAKER) (test 78 % zymm=689) LYMPHOCYTES RELATIVE PERCENT (BEAKER) (test 15 % avtv=184) MONOCYTES RELATIVE PERCENT (BEAKER) (test 5 % umvd=969) EOSINOPHILS RELATIVE PERCENT (BEAKER) (test 1 % vplh=910) BASOPHILS RELATIVE PERCENT (BEAKER) (test 1 % tirz=348) NEUTROPHILS ABSOLUTE COUNT (BEAKER) (test 15.70 K/ L 1.56-6.13 zsrm=836) LYMPHOCYTES ABSOLUTE COUNT (BEAKER) (test 2.99 K/ L 1.18-3.74 ekmb=509) MONOCYTES ABSOLUTE COUNT (BEAKER) (test 0.93 K/ L 0.24-0.36 gymk=284) EOSINOPHILS ABSOLUTE COUNT (BEAKER) (test 0.20 K/ L 0.04-0.36 poso=745) BASOPHILS ABSOLUTE COUNT (BEAKER) (test 0.12 K/ L 0.01-0.08 vmoa=232) IMMATURE GRANULOCYTES-RELATIVE PERCENT (BEAKER) 1 % 0-1 (test ihqs=4166) POCT-GLUCOSE [id number] 07:03:00 Test Item Value Reference Range Comments POC-GLUCOSE METER (BEAKER) 186 mg/dL 70-110 TESTED AT [address] (test nqqn=1196) [facility] [address] B-TYPE NATRIURETIC FACTOR (BNP)2017-06-10 12:44:00 Test Item Value Reference Range Comments B-TYPE NATRIURETIC PEPTIDE (BEAKER) (test 1264 pg/mL 0-100 pzpr=206) [id number] 12:36:00 Test Item Value Reference Range Comments MAGNESIUM (BEAKER) (test laxj=969) 1.6 mg/dL 1.6-2.6 BASIC METABOLIC [id number] 12:36:00 Test Item Value Reference Range Comments SODIUM (BEAKER) (test 137 meq/L 136-145 xceb=882) POTASSIUM (BEAKER) (test 5.4 meq/L 3.5-5.1 qiie=222) CHLORIDE (BEAKER) (test 108 meq/L 98-107 thwb=518) CO2 (BEAKER) (test 21 meq/L 22-29 nnwd=444) BLOOD UREA NITROGEN 39 mg/dL 7-21 (BEAKER) (test kqdm=843) CREATININE (BEAKER) (test 1.49 mg/dL 0.57-1.25 rnwq=380) GLUCOSE RANDOM (BEAKER) 219 mg/dL 70-105 (test qvon=255) CALCIUM (BEAKER) (test 8.5 mg/dL 8.4-10.2 rgvp=154) EGFR (BEAKER) (test 35 mL/min/1.73 sq m ESTIMATED GFR IS NOT chuq=6080) ACCURATE CREATININE CLEARANCE IN PREDICTING GLOMERULAR FILTRATION RATE. ESTIMATED GFR IS NOT APPLICABLE FOR DIALYSIS PATIENTS. POCT-GLUCOSE [id number] 12:04:00 Test Item Value Reference Range Comments POC-GLUCOSE METER (BEAKER) 274 mg/dL 70-110 TESTED AT [address] (test pakr=5984) [facility] [address] POCT-GLUCOSE [id number] 07:21:00 Test Item Value Reference Range Comments POC-GLUCOSE METER (BEAKER) 137 mg/dL 70-110 TESTED AT [facility] [address] (test hwnd=0882) [facility] [address] BASIC METABOLIC [id number] 05:10:00 Test Item Value Reference Range Comments SODIUM (BEAKER) (test 137 meq/L 136-145 itrh=983) POTASSIUM (BEAKER) (test 4.1 meq/L 3.5-5.1 ftiu=629) CHLORIDE (BEAKER) (test 106 meq/L 98-107 nncw=994) CO2 (BEAKER) (test 24 meq/L 22-29 oqsg=463) BLOOD UREA NITROGEN 42 mg/dL 7-21 (BEAKER) (test auhf=414) CREATININE (BEAKER) (test 1.64 mg/dL 0.57-1.25 kicq=133) GLUCOSE RANDOM (BEAKER) 162 mg/dL 70-105 (test sbjw=706) CALCIUM (BEAKER) (test 8.1 mg/dL 8.4-10.2 vfal=833) EGFR (BEAKER) (test 32 mL/min/1.73 sq m ESTIMATED GFR IS NOT qkym=9552) ACCURATE CREATININE CLEARANCE IN PREDICTING GLOMERULAR FILTRATION RATE. ESTIMATED GFR IS NOT APPLICABLE FOR DIALYSIS PATIENTS. CBC (HEMOGRAM ONLY)2017-06-01 04:30:00 Test Item Value Reference Range Comments WHITE BLOOD CELL COUNT (BEAKER) (test mfwu=101) 6.4 K/ L 3.5-10.5 RED BLOOD CELL COUNT (BEAKER) (test oona=267) 3.38 M/ L 3.93-5.22 HEMOGLOBIN (BEAKER) (test wtlb=558) 8.7 GM/DL 11.2-15.7 HEMATOCRIT (BEAKER) (test ivwb=516) 28.2 % 34.1-44.9 MEAN CORPUSCULAR VOLUME (BEAKER) (test faiy=787) 83.4 fL 79.4-94.8 MEAN CORPUSCULAR HEMOGLOBIN (BEAKER) (test 25.7 pg 25.6-32.2 knum=833) MEAN CORPUSCULAR HEMOGLOBIN CONC (BEAKER) (test 30.9 GM/DL 32.2-35.5 gfpr=799) RED CELL DISTRIBUTION WIDTH (BEAKER) (test 15.2 % 11.7-14.4 ozqj=819) PLATELET COUNT (BEAKER) (test hpwe=783) 320 K/CU MM 150-450 MEAN PLATELET VOLUME (BEAKER) (test xgqk=876) 9.5 fL 9.4-12.3 NUCLEATED RED BLOOD CELLS (BEAKER) (test 0 /100 WBC 0-0 uevm=717) POCT-GLUCOSE [id number] 21:23:00 Test Item Value Reference Range Comments POC-GLUCOSE METER (BEAKER) 240 mg/dL 70-110 TESTED AT [address] (test jfgc=0675) [facility] [address] POCT-GLUCOSE [id number] 16:42:00 Test Item Value Reference Range Comments POC-GLUCOSE METER (BEAKER) 234 mg/dL 70-110 TESTED AT [address] (test seec=1289) [place] [id number] POCT-GLUCOSE [id number] 13:22:00 Test Item Value Reference Range Comments POC-GLUCOSE METER (BEAKER) 166 mg/dL 70-110 TESTED AT [address] (test bbyl=5999) [facility] [address] RAD, CHEST, 1 VIEW, NON [id number] 09:43:00Reason for exam:->s/p ACBShould this be performed [...] Ring Verified Date/Time: 05/31/2017 09: 43:30 ReadingLocation: [facility] B1 [id number] Ortho Consult Reading Room POCT-GLUCOSE [id number] 06:57:00 Test Item Value Reference Range Comments POC-GLUCOSE METER (BEAKER) 136 mg/dL 70-110 TESTED AT [facility] [address] (test hisx=1273) [facility] [address] CALCIUM, [id number] 06:41:00 Test Item Value Reference Range Comments CALCIUM IONIZED (BEAKER) (test syyd=108) 1.10 mmol/L 1.12-1.27 PH, BLOOD (BEAKER) (test mccl=1709) 7.42 [id number] 06:17:00 Test Item Value Reference Range Comments PHOSPHORUS (BEAKER) (test krwc=988) 3.3 mg/dL 2.3-4.7 [id number] 06:17:00 Test Item Value Reference Range Comments MAGNESIUM (BEAKER) (test eufk=067) 1.8 mg/dL 1.6-2.6 BASIC METABOLIC [id number] 06:17:00 Test Item Value Reference Range Comments SODIUM (BEAKER) (test 131 meq/L 136-145 smel=605) POTASSIUM (BEAKER) (test 4.5 meq/L 3.5-5.1 nzjp=670) CHLORIDE (BEAKER) (test 103 meq/L 98-107 wjyy=215) CO2 (BEAKER) (test 21 meq/L 22-29 zsgi=978) BLOOD UREA NITROGEN 43 mg/dL 7-21 (BEAKER) (test kcsm=098) CREATININE (BEAKER) (test 1.74 mg/dL 0.57-1.25 pkka=209) GLUCOSE RANDOM (BEAKER) 126 mg/dL 70-105 (test zfpp=481) CALCIUM (BEAKER) (test 8.1 mg/dL 8.4-10.2 akdx=277) EGFR (BEAKER) (test 30 mL/min/1.73 sq m ESTIMATED GFR IS NOT bjrs=6024) ACCURATE CREATININE CLEARANCE IN PREDICTING GLOMERULAR FILTRATION RATE. ESTIMATED GFR IS NOT APPLICABLE FOR DIALYSIS PATIENTS. CBC W/PLT COUNT & AUTO [id number] 05:07:00 Test Item Value Reference Range Comments WHITE BLOOD CELL COUNT (BEAKER) (test kmuj=205) 5.9 K/ L 3.5-10.5 RED BLOOD CELL COUNT (BEAKER) (test hfjw=632) 3.16 M/ L 3.93-5.22 HEMOGLOBIN (BEAKER) (test tnnf=312) 8.2 GM/DL 11.2-15.7 HEMATOCRIT (BEAKER) (test zdoz=930) 26.6 % 34.1-44.9 MEAN CORPUSCULAR VOLUME (BEAKER) (test nihn=122) 84.2 fL 79.4-94.8 MEAN CORPUSCULAR HEMOGLOBIN (BEAKER) (test 25.9 pg 25.6-32.2 lnmk=021) MEAN CORPUSCULAR HEMOGLOBIN CONC (BEAKER) (test 30.8 GM/DL 32.2-35.5 xqxr=167) RED CELL DISTRIBUTION WIDTH (BEAKER) (test 15.1 % 11.7-14.4 dfeo=827) PLATELET COUNT (BEAKER) (test suxo=716) 320 K/CU MM 150-450 MEAN PLATELET VOLUME (BEAKER) (test okqj=990) 9.6 fL 9.4-12.3 NUCLEATED RED BLOOD CELLS (BEAKER) (test 0 /100 WBC 0-0 akgh=115) NEUTROPHILS RELATIVE PERCENT (BEAKER) (test 65 % ftdr=337) LYMPHOCYTES RELATIVE PERCENT (BEAKER) (test 24 % mwar=693) MONOCYTES RELATIVE PERCENT (BEAKER) (test 8 % qcia=288) EOSINOPHILS RELATIVE PERCENT (BEAKER) (test 2 % yyxp=010) BASOPHILS RELATIVE PERCENT (BEAKER) (test 1 % eslf=055) NEUTROPHILS ABSOLUTE COUNT (BEAKER) (test 3.84 K/ L 1.56-6.13 mmrs=428) LYMPHOCYTES ABSOLUTE COUNT (BEAKER) (test 1.41 K/ L 1.18-3.74 mrtr=503) MONOCYTES ABSOLUTE COUNT (BEAKER) (test 0.47 K/ L 0.24-0.36 jgkm=173) EOSINOPHILS ABSOLUTE COUNT (BEAKER) (test 0.11 K/ L 0.04-0.36 godr=103) BASOPHILS ABSOLUTE COUNT (BEAKER) (test 0.05 K/ L 0.01-0.08 eckh=261) IMMATURE GRANULOCYTES-RELATIVE PERCENT (BEAKER) 1 % 0-1 (test gmkw=1376) POCT-GLUCOSE [id number] 20:56:00 Test Item Value Reference Range Comments POC-GLUCOSE METER (BEAKER) 196 mg/dL 70-110 TESTED AT [facility] [address] [facility] (test tnhb=9008) [facility] [address] POCT-GLUCOSE [id number] 16:42:00 Test Item Value Reference Range Comments POC-GLUCOSE METER (BEAKER) 196 mg/dL 70-110 TESTED AT [facility] [address] [facility] (test sakv=0528) [facility] [address] POCT-GLUCOSE [id number] 11:45:00 Test Item Value Reference Range Comments POC-GLUCOSE METER (BEAKER) 215 mg/dL 70-110 TESTED AT [place] [id number] [facility] (test dqgk=3757) [place] [id number] RAD, CHEST, 1 VIEW, NON [id number] 11:15:00Reason for exam:->s/p ACBShould this be performed at the bedside?->YesFINAL REPORT Chest one view compared to May 28, 2017 Discussion: Airspace opacities are seen in both lower lung regions, probably atelectasis. Correlate clinically for infection. I could not exclude small effusions. No pneumothorax. Upper lungs clear. Signed: Jeannette Nava Verified Date/Time: 2017 11:15:07 Reading Location: [facility] Radiology Reading Room CALCIUM, [id number] 09:21:00 Test Item Value Reference Range Comments CALCIUM IONIZED (BEAKER) (test xjfq=878) 1.11 mmol/L 1.12-1.27 PH, BLOOD (BEAKER) (test yoki=0918) 7.36 BASIC METABOLIC [id number] 07:37:00 Test Item Value Reference Range Comments SODIUM (BEAKER) (test 135 meq/L 136-145 puvs=359) POTASSIUM (BEAKER) (test 4.9 meq/L 3.5-5.1 ydhg=349) CHLORIDE (BEAKER) (test 105 meq/L 98-107 xteg=455) CO2 (BEAKER) (test 25 meq/L 22-29 maoo=450) BLOOD UREA NITROGEN 44 mg/dL 7-21 (BEAKER) (test cnhs=928) CREATININE (BEAKER) (test 1.76 mg/dL 0.57-1.25 evnx=910) GLUCOSE RANDOM (BEAKER) 136 mg/dL 70-105 (test zmyx=246) CALCIUM (BEAKER) (test 8.2 mg/dL 8.4-10.2 tqon=858) EGFR (BEAKER) (test 29 mL/min/1.73 sq m ESTIMATED GFR IS NOT ubgm=9357) ACCURATE CREATININE CLEARANCE IN PREDICTING GLOMERULAR FILTRATION RATE. ESTIMATED GFR IS NOT APPLICABLE FOR DIALYSIS PATIENTS. [id number] 07:28:00 Test Item Value Reference Range Comments PHOSPHORUS (BEAKER) (test xpjn=692) 3.8 mg/dL 2.3-4.7 [id number] 07:28:00 Test Item Value Reference Range Comments MAGNESIUM (BEAKER) (test dxry=024) 1.9 mg/dL 1.6-2.6 CBC W/PLT COUNT & AUTO [id number] 07:26:00 Test Item Value Reference Range Comments WHITE BLOOD CELL COUNT (BEAKER) (test suwq=919) 6.3 K/ L 3.5-10.5 RED BLOOD CELL COUNT (BEAKER) (test fmnb=033) 3.32 M/ L 3.93-5.22 HEMOGLOBIN (BEAKER) (test flke=695) 8.5 GM/DL 11.2-15.7 HEMATOCRIT (BEAKER) (test pkqi=121) 27.8 % 34.1-44.9 MEAN CORPUSCULAR VOLUME (BEAKER) (test cffs=324) 83.7 fL 79.4-94.8 MEAN CORPUSCULAR HEMOGLOBIN (BEAKER) (test 25.6 pg 25.6-32.2 wznt=077) MEAN CORPUSCULAR HEMOGLOBIN CONC (BEAKER) (test 30.6 GM/DL 32.2-35.5 ufls=902) RED CELL DISTRIBUTION WIDTH (BEAKER) (test 15.0 % 11.7-14.4 emef=554) PLATELET COUNT (BEAKER) (test eecm=020) 336 K/CU MM 150-450 MEAN PLATELET VOLUME (BEAKER) (test vdiu=741) 9.8 fL 9.4-12.3 NUCLEATED RED BLOOD CELLS (BEAKER) (test 0 /100 WBC 0-0 flmo=372) NEUTROPHILS RELATIVE PERCENT (BEAKER) (test 65 % xrpv=256) LYMPHOCYTES RELATIVE PERCENT (BEAKER) (test 24 % lgwd=723) MONOCYTES RELATIVE PERCENT (BEAKER) (test 7 % iyrb=064) EOSINOPHILS RELATIVE PERCENT (BEAKER) (test 3 % inxy=838) BASOPHILS RELATIVE PERCENT (BEAKER) (test 0 % otat=755) NEUTROPHILS ABSOLUTE COUNT (BEAKER) (test 4.13 K/ L 1.56-6.13 tdit=901) LYMPHOCYTES ABSOLUTE COUNT (BEAKER) (test 1.50 K/ L 1.18-3.74 kgot=796) MONOCYTES ABSOLUTE COUNT (BEAKER) (test 0.44 K/ L 0.24-0.36 jsza=812) EOSINOPHILS ABSOLUTE COUNT (BEAKER) (test 0.20 K/ L 0.04-0.36 sson=949) BASOPHILS ABSOLUTE COUNT (BEAKER) (test 0.02 K/ L 0.01-0.08 zozv=537) IMMATURE GRANULOCYTES-RELATIVE PERCENT (BEAKER) 1 % 0-1 (test aqeg=7195) POCT-GLUCOSE [id number] 07:21:00 Test Item Value Reference Range Comments POC-GLUCOSE METER (BEAKER) 146 mg/dL 70-110 TESTED AT [address] (test duvn=8162) [place] [id number] POCT-GLUCOSE [id number] 22:02:00 Test Item Value Reference Range Comments POC-GLUCOSE METER (BEAKER) 201 mg/dL 70-110 TESTED AT [address] (test mxkf=1404) [place] [id number] POCT-GLUCOSE [id number] 18:27:00 Test Item Value Reference Range Comments POC-GLUCOSE METER (BEAKER) 240 mg/dL 70-110 TESTED AT [address] (test buje=3323) [place] [id number] POCT-GLUCOSE [id number] 12:13:00 Test Item Value Reference Range Comments POC-GLUCOSE METER (BEAKER) 193 mg/dL 70-110 TESTED AT [address] (test wzvg=7048) [place] [id number] POCT-GLUCOSE [id number] 09:02:00 Test Item Value Reference Range Comments POC-GLUCOSE METER (BEAKER) 132 mg/dL 70-110 TESTED AT [address] (test qrgo=6210) [place] [address] CALCIUM, [id number] 05:42:00 Test Item Value Reference Range Comments CALCIUM IONIZED (BEAKER) (test yyit=372) 1.12 mmol/L 1.12-1.27 PH, BLOOD (BEAKER) (test uakb=4091) 7.34 COMPREHENSIVE METABOLIC [id number] 05:33:00 Test Item Value Reference Range Comments TOTAL PROTEIN (BEAKER) 5.9 gm/dL 6.0-8.3 (test knxc=580) ALBUMIN (BEAKER) (test 2.7 g/dL 3.5-5.0 jmhp=9276) ALKALINE PHOSPHATASE 130 U/L 40-150 (BEAKER) (test hejs=122) BILIRUBIN TOTAL (BEAKER) 0.3 mg/dL 0.2-1.2 (test iias=226) SODIUM (BEAKER) (test 135 meq/L 136-145 oued=150) POTASSIUM (BEAKER) (test 4.7 meq/L 3.5-5.1 pemm=775) CHLORIDE (BEAKER) (test 105 meq/L 98-107 vuax=445) CO2 (BEAKER) (test 24 meq/L 22-29 wufo=733) BLOOD UREA NITROGEN 42 mg/dL 7-21 (BEAKER) (test xupl=484) CREATININE (BEAKER) (test 1.78 mg/dL 0.57-1.25 ftub=207) GLUCOSE RANDOM (BEAKER) 129 mg/dL 70-105 (test iofu=358) CALCIUM (BEAKER) (test 8.5 mg/dL 8.4-10.2 ufdy=953) AST (SGOT) (BEAKER) (test 23 U/L 5-34 whtm=640) ALT (SGPT) (BEAKER) (test 15 U/L 6-55 skes=146) EGFR (BEAKER) (test 29 mL/min/1.73 sq m ESTIMATED GFR IS NOT lptg=3421) ACCURATE CREATININE CLEARANCE IN PREDICTING GLOMERULAR FILTRATION RATE. ESTIMATED GFR IS NOT APPLICABLE FOR DIALYSIS PATIENTS. [id number] 05:32:00 Test Item Value Reference Range Comments PHOSPHORUS (BEAKER) (test dlrd=671) 3.6 mg/dL 2.3-4.7 [id number] 05:32:00 Test Item Value Reference Range Comments MAGNESIUM (BEAKER) (test ypkp=716) 2.2 mg/dL 1.6-2.6 CBC W/PLT COUNT & AUTO [id number] 05:01:00 Test Item Value Reference Range Comments WHITE BLOOD CELL COUNT (BEAKER) (test niyc=862) 6.4 K/ L 3.5-10.5 RED BLOOD CELL COUNT (BEAKER) (test bnsk=553) 3.43 M/ L 3.93-5.22 HEMOGLOBIN (BEAKER) (test hzeo=620) 8.9 GM/DL 11.2-15.7 HEMATOCRIT (BEAKER) (test wrnm=947) 28.9 % 34.1-44.9 MEAN CORPUSCULAR VOLUME (BEAKER) (test zord=309) 84.3 fL 79.4-94.8 MEAN CORPUSCULAR HEMOGLOBIN (BEAKER) (test 25.9 pg 25.6-32.2 iddk=872) MEAN CORPUSCULAR HEMOGLOBIN CONC (BEAKER) (test 30.8 GM/DL 32.2-35.5 gnzo=302) RED CELL DISTRIBUTION WIDTH (BEAKER) (test 15.0 % 11.7-14.4 nyri=195) PLATELET COUNT (BEAKER) (test pdyq=267) 324 K/CU MM 150-450 MEAN PLATELET VOLUME (BEAKER) (test aqhh=906) 9.3 fL 9.4-12.3 NUCLEATED RED BLOOD CELLS (BEAKER) (test 0 /100 WBC 0-0 jdoh=022) NEUTROPHILS RELATIVE PERCENT (BEAKER) (test 62 % ghad=951) LYMPHOCYTES RELATIVE PERCENT (BEAKER) (test 25 % ubbj=598) MONOCYTES RELATIVE PERCENT (BEAKER) (test 8 % gfqo=800) EOSINOPHILS RELATIVE PERCENT (BEAKER) (test 4 % toda=720) BASOPHILS RELATIVE PERCENT (BEAKER) (test 1 % rzzv=069) NEUTROPHILS ABSOLUTE COUNT (BEAKER) (test 3.93 K/ L 1.56-6.13 aadp=861) LYMPHOCYTES ABSOLUTE COUNT (BEAKER) (test 1.60 K/ L 1.18-3.74 djtm=079) MONOCYTES ABSOLUTE COUNT (BEAKER) (test 0.51 K/ L 0.24-0.36 fwpw=904) EOSINOPHILS ABSOLUTE COUNT (BEAKER) (test 0.25 K/ L 0.04-0.36 enqk=844) BASOPHILS ABSOLUTE COUNT (BEAKER) (test 0.03 K/ L 0.01-0.08 xial=629) IMMATURE GRANULOCYTES-RELATIVE PERCENT (BEAKER) 1 % 0-1 (test phdb=9986) POCT-GLUCOSE [id number] 21:04:00 Test Item Value Reference Range Comments POC-GLUCOSE METER (BEAKER) 165 mg/dL 70-110 TESTED AT [address] (test ayij=3679) [facility] [address] POCT-GLUCOSE [id number] 17:30:00 Test Item Value Reference Range Comments POC-GLUCOSE METER (BEAKER) 236 mg/dL 70-110 TESTED AT [address] (test trhd=4961) [facility] [address] RAD, CHEST, 1 VIEW, NON [id number] 13:53:00Reason for exam:->assess for ill-defined opacityShould this [...] congested. Impression: No change. Signed: Luis Alberto Callawayeport Verified Date/Time: 05/28/2017 13:53:03 Reading Location: [address] Radiology Reading Room Electronically signed by: LUIS ALBERTO CALLAWAY M.D. on 01:53 PMPOCT-GLUCOSE [id number] 11:53:00 Test Item Value Reference Range Comments POC-GLUCOSE METER (BEAKER) 215 mg/dL 70-110 TESTED AT [address] (test vxjb=0319) [facility] [address] POCT-GLUCOSE [id number] 08:32:00 Test Item Value Reference Range Comments POC-GLUCOSE METER (BEAKER) 168 mg/dL 70-110 TESTED AT [address] (test nfgh=1826) [facility] [address] CALCIUM, [id number] 05:44:00 Test Item Value Reference Range Comments CALCIUM IONIZED (BEAKER) (test ygyz=223) 1.09 mmol/L 1.12-1.27 PH, BLOOD (BEAKER) (test mlto=9204) 7.38 [id number] 05:44:00 Test Item Value Reference Range Comments PHOSPHORUS (BEAKER) (test jffq=723) 3.5 mg/dL 2.3-4.7 [id number] 05:44:00 Test Item Value Reference Range Comments MAGNESIUM (BEAKER) (test wejb=215) 1.9 mg/dL 1.6-2.6 BASIC METABOLIC [id number] 05:44:00 Test Item Value Reference Range Comments SODIUM (BEAKER) (test 137 meq/L 136-145 krto=599) POTASSIUM (BEAKER) (test 4.5 meq/L 3.5-5.1 vudw=673) CHLORIDE (BEAKER) (test 108 meq/L 98-107 rekj=904) CO2 (BEAKER) (test 23 meq/L 22-29 dftf=953) BLOOD UREA NITROGEN 41 mg/dL 7-21 (BEAKER) (test gmjx=481) CREATININE (BEAKER) (test 1.41 mg/dL 0.57-1.25 nzsb=142) GLUCOSE RANDOM (BEAKER) 113 mg/dL 70-105 (test biju=275) CALCIUM (BEAKER) (test 8.1 mg/dL 8.4-10.2 fupm=143) EGFR (BEAKER) (test 38 mL/min/1.73 sq m ESTIMATED GFR IS NOT trac=6547) ACCURATE CREATININE CLEARANCE IN PREDICTING GLOMERULAR FILTRATION RATE. ESTIMATED GFR IS NOT APPLICABLE FOR DIALYSIS PATIENTS. CBC W/PLT COUNT & AUTO [id number] 05:05:00 Test Item Value Reference Range Comments WHITE BLOOD CELL COUNT (BEAKER) (test qqcc=667) 6.3 K/ L 3.5-10.5 RED BLOOD CELL COUNT (BEAKER) (test alsh=936) 3.40 M/ L 3.93-5.22 HEMOGLOBIN (BEAKER) (test kfwd=569) 8.8 GM/DL 11.2-15.7 HEMATOCRIT (BEAKER) (test uuoe=510) 29.0 % 34.1-44.9 MEAN CORPUSCULAR VOLUME (BEAKER) (test nvkh=994) 85.3 fL 79.4-94.8 MEAN CORPUSCULAR HEMOGLOBIN (BEAKER) (test 25.9 pg 25.6-32.2 raqp=141) MEAN CORPUSCULAR HEMOGLOBIN CONC (BEAKER) (test 30.3 GM/DL 32.2-35.5 wcxo=146) RED CELL DISTRIBUTION WIDTH (BEAKER) (test 14.9 % 11.7-14.4 vqsf=874) PLATELET COUNT (BEAKER) (test xthr=814) 282 K/CU MM 150-450 MEAN PLATELET VOLUME (BEAKER) (test ouoh=041) 9.5 fL 9.4-12.3 NUCLEATED RED BLOOD CELLS (BEAKER) (test 0 /100 WBC 0-0 znsn=975) NEUTROPHILS RELATIVE PERCENT (BEAKER) (test 59 % zbhi=296) LYMPHOCYTES RELATIVE PERCENT (BEAKER) (test 28 % tiwp=830) MONOCYTES RELATIVE PERCENT (BEAKER) (test 7 % xfyw=642) EOSINOPHILS RELATIVE PERCENT (BEAKER) (test 4 % aqcv=546) BASOPHILS RELATIVE PERCENT (BEAKER) (test 1 % raat=307) NEUTROPHILS ABSOLUTE COUNT (BEAKER) (test 3.75 K/ L 1.56-6.13 hrig=017) LYMPHOCYTES ABSOLUTE COUNT (BEAKER) (test 1.80 K/ L 1.18-3.74 pnlk=306) MONOCYTES ABSOLUTE COUNT (BEAKER) (test 0.45 K/ L 0.24-0.36 ovsg=793) EOSINOPHILS ABSOLUTE COUNT (BEAKER) (test 0.25 K/ L 0.04-0.36 rsxp=221) BASOPHILS ABSOLUTE COUNT (BEAKER) (test 0.05 K/ L 0.01-0.08 kcst=262) IMMATURE GRANULOCYTES-RELATIVE PERCENT (BEAKER) 1 % 0-1 (test jpwf=5283) POCT-GLUCOSE [id number] 21:03:00 Test Item Value Reference Range Comments POC-GLUCOSE METER (BEAKER) 173 mg/dL 70-110 TESTED AT [address] (test ckya=4208) [place] [id number] 18:15:00 Test Item Value Reference Range Comments ACTIVATED CLOTTING TIME 147 sec TESTED AT [address] (BEAKER) (test aybu=243) [place] [address] [id number] 18:15:00 Test Item Value Reference Range Comments ACTIVATED CLOTTING TIME 246 sec TESTED AT [place] [address] [address] (BEAKER) (test paoz=780) [place] [id number] POCT-GLUCOSE [id number] 12:39:00 Test Item Value Reference Range Comments POC-GLUCOSE METER (BEAKER) 219 mg/dL 70-110 TESTED AT [address] (test hotj=4530) [place] [address] RAD, CHEST, 1 VIEW, NON [id number] 10:11:00Reason for exam:->pl effusionShould this be performed at the bedside?->YesFINAL REPORT Chest one view compared to May 26 Discussion: There is cardiac prominence. Upper lungs are clear. Ill-defined basilar densities are similar probably atelectasis. No gross effusion or pneumothorax with bilateral chest tubes in place. Signed: Jeannette Nava Verified Date/Time: 2017 10:11:44 Reading Location: [facility] Radiology Reading Room POCT- GLUCOSE [id number] 07:05:00 Test Item Value Reference Range Comments POC-GLUCOSE METER (BEAKER) 167 mg/dL 70-110 TESTED AT [address] (test ljgy=3506) [place] [id number] CALCIUM, [id number] 06:20:00 Test Item Value Reference Range Comments CALCIUM IONIZED (BEAKER) (test yntu=380) 0.98 mmol/L 1.12-1.27 PH, BLOOD (BEAKER) (test qzdm=8806) 7.50 [id number] 04:56:00 Test Item Value Reference Range Comments PHOSPHORUS (BEAKER) (test yuhg=727) 2.6 mg/dL 2.3-4.7 [id number] 04:56:00 Test Item Value Reference Range Comments MAGNESIUM (BEAKER) (test gfcn=498) 2.0 mg/dL 1.6-2.6 BASIC METABOLIC [id number] 04:56:00 Test Item Value Reference Range Comments SODIUM (BEAKER) (test 135 meq/L 136-145 lmrj=950) POTASSIUM (BEAKER) (test 4.5 meq/L 3.5-5.1 biun=261) CHLORIDE (BEAKER) (test 105 meq/L 98-107 qhrj=057) CO2 (BEAKER) (test 22 meq/L 22-29 vkty=292) BLOOD UREA NITROGEN 47 mg/dL 7-21 (BEAKER) (test vvjb=362) CREATININE (BEAKER) (test 1.44 mg/dL 0.57-1.25 hbwa=700) GLUCOSE RANDOM (BEAKER) 177 mg/dL 70-105 (test wuyz=950) CALCIUM (BEAKER) (test 8.0 mg/dL 8.4-10.2 fqli=120) EGFR (BEAKER) (test 37 mL/min/1.73 sq m ESTIMATED GFR IS NOT fjpv=2161) ACCURATE CREATININE CLEARANCE IN PREDICTING GLOMERULAR FILTRATION RATE. ESTIMATED GFR IS NOT APPLICABLE FOR DIALYSIS PATIENTS. CBC W/PLT COUNT & AUTO [id number] 04:36:00 Test Item Value Reference Range Comments WHITE BLOOD CELL COUNT (BEAKER) (test oxxb=540) 6.1 K/ L 3.5-10.5 RED BLOOD CELL COUNT (BEAKER) (test snuq=849) 3.35 M/ L 3.93-5.22 HEMOGLOBIN (BEAKER) (test dzhb=433) 8.6 GM/DL 11.2-15.7 HEMATOCRIT (BEAKER) (test gjiy=148) 28.0 % 34.1-44.9 MEAN CORPUSCULAR VOLUME (BEAKER) (test rksj=172) 83.6 fL 79.4-94.8 MEAN CORPUSCULAR HEMOGLOBIN (BEAKER) (test 25.7 pg 25.6-32.2 huzh=333) MEAN CORPUSCULAR HEMOGLOBIN CONC (BEAKER) (test 30.7 GM/DL 32.2-35.5 jlie=363) RED CELL DISTRIBUTION WIDTH (BEAKER) (test 14.7 % 11.7-14.4 ffco=619) PLATELET COUNT (BEAKER) (test cfbq=825) 280 K/CU MM 150-450 MEAN PLATELET VOLUME (BEAKER) (test trti=029) 9.9 fL 9.4-12.3 NUCLEATED RED BLOOD CELLS (BEAKER) (test 0 /100 WBC 0-0 qssk=223) NEUTROPHILS RELATIVE PERCENT (BEAKER) (test 65 % baqe=086) LYMPHOCYTES RELATIVE PERCENT (BEAKER) (test 23 % iblz=479) MONOCYTES RELATIVE PERCENT (BEAKER) (test 7 % jesu=725) EOSINOPHILS RELATIVE PERCENT (BEAKER) (test 4 % ginj=376) BASOPHILS RELATIVE PERCENT (BEAKER) (test 1 % zobo=738) NEUTROPHILS ABSOLUTE COUNT (BEAKER) (test 3.97 K/ L 1.56-6.13 qrye=014) LYMPHOCYTES ABSOLUTE COUNT (BEAKER) (test 1.41 K/ L 1.18-3.74 jeru=361) MONOCYTES ABSOLUTE COUNT (BEAKER) (test 0.44 K/ L 0.24-0.36 poef=853) EOSINOPHILS ABSOLUTE COUNT (BEAKER) (test 0.22 K/ L 0.04-0.36 vwmt=711) BASOPHILS ABSOLUTE COUNT (BEAKER) (test 0.05 K/ L 0.01-0.08 feog=325) IMMATURE GRANULOCYTES-RELATIVE PERCENT (BEAKER) 1 % 0-1 (test jvua=9465) POCT-GLUCOSE [id number] 21:29:00 Test Item Value Reference Range Comments POC-GLUCOSE METER (BEAKER) 147 mg/dL 70-110 TESTED AT [address] (test yvah=7946) [place] [id number] POCT-GLUCOSE [id number] 17:51:00 Test Item Value Reference Range Comments POC-GLUCOSE METER (BEAKER) 224 mg/dL 70-110 TESTED AT [address] (test tdrp=2567) [place] [address] POCT-GLUCOSE [id number] 13:53:00 Test Item Value Reference Range Comments POC-GLUCOSE METER (BEAKER) 182 mg/dL 70-110 TESTED AT [address] (test hvab=9291) [place] [id number] RAD, CHEST, 1 VIEW, NON [id number] 08:44:00Reason for exam:->pl effusionShould this be performed [...] Verified Date/Time : 05/26/2017 08:44:25 Reading Location: [address] Radiology Reading Room POCT- GLUCOSE [id number] 07:43:00 Test Item Value Reference Range Comments POC-GLUCOSE METER (BEAKER) 113 mg/dL 70-110 TESTED AT [facility] [address] [facility] (test rngh=0485) [facility] [address] CALCIUM, [id number] 06:31:00 Test Item Value Reference Range Comments CALCIUM IONIZED (BEAKER) (test mate=040) 1.07 mmol/L 1.12-1.27 PH, BLOOD (BEAKER) (test jdmy=6216) 7.38 [id number] 04:51:00 Test Item Value Reference Range Comments PHOSPHORUS (BEAKER) (test fpja=503) 3.2 mg/dL 2.3-4.7 [id number] 04:51:00 Test Item Value Reference Range Comments MAGNESIUM (BEAKER) (test ezob=437) 2.1 mg/dL 1.6-2.6 BASIC METABOLIC [id number] 04:51:00 Test Item Value Reference Range Comments SODIUM (BEAKER) (test 139 meq/L 136-145 cnca=113) POTASSIUM (BEAKER) (test 4.1 meq/L 3.5-5.1 rzit=235) CHLORIDE (BEAKER) (test 106 meq/L 98-107 yyud=632) CO2 (BEAKER) (test 24 meq/L 22-29 qknv=011) BLOOD UREA NITROGEN 52 mg/dL 7-21 (BEAKER) (test ygnt=615) CREATININE (BEAKER) (test 1.52 mg/dL 0.57-1.25 effx=383) GLUCOSE RANDOM (BEAKER) 108 mg/dL 70-105 (test ljug=876) CALCIUM (BEAKER) (test 8.4 mg/dL 8.4-10.2 cwmf=093) EGFR (BEAKER) (test 35 mL/min/1.73 sq m ESTIMATED GFR IS NOT phlq=7753) ACCURATE CREATININE CLEARANCE IN PREDICTING GLOMERULAR FILTRATION RATE. ESTIMATED GFR IS NOT APPLICABLE FOR DIALYSIS PATIENTS. CBC W/PLT COUNT & AUTO [id number] 04:27:00 Test Item Value Reference Range Comments WHITE BLOOD CELL COUNT (BEAKER) (test iplz=362) 7.2 K/ L 3.5-10.5 RED BLOOD CELL COUNT (BEAKER) (test fvrz=245) 3.53 M/ L 3.93-5.22 HEMOGLOBIN (BEAKER) (test pmqq=013) 9.1 GM/DL 11.2-15.7 HEMATOCRIT (BEAKER) (test wscw=406) 29.5 % 34.1-44.9 MEAN CORPUSCULAR VOLUME (BEAKER) (test mgqz=644) 83.6 fL 79.4-94.8 MEAN CORPUSCULAR HEMOGLOBIN (BEAKER) (test 25.8 pg 25.6-32.2 zvch=516) MEAN CORPUSCULAR HEMOGLOBIN CONC (BEAKER) (test 30.8 GM/DL 32.2-35.5 kfpp=520) RED CELL DISTRIBUTION WIDTH (BEAKER) (test 14.6 % 11.7-14.4 ulut=890) PLATELET COUNT (BEAKER) (test gvko=070) 296 K/CU MM 150-450 MEAN PLATELET VOLUME (BEAKER) (test ntwk=808) 9.5 fL 9.4-12.3 NUCLEATED RED BLOOD CELLS (BEAKER) (test 0 /100 WBC 0-0 nnmr=541) NEUTROPHILS RELATIVE PERCENT (BEAKER) (test 67 % rivt=998) LYMPHOCYTES RELATIVE PERCENT (BEAKER) (test 21 % zaju=706) MONOCYTES RELATIVE PERCENT (BEAKER) (test 7 % ejtq=468) EOSINOPHILS RELATIVE PERCENT (BEAKER) (test 4 % jrat=413) BASOPHILS RELATIVE PERCENT (BEAKER) (test 1 % fwhj=901) NEUTROPHILS ABSOLUTE COUNT (BEAKER) (test 4.79 K/ L 1.56-6.13 iyuk=599) LYMPHOCYTES ABSOLUTE COUNT (BEAKER) (test 1.49 K/ L 1.18-3.74 ytqh=672) MONOCYTES ABSOLUTE COUNT (BEAKER) (test 0.50 K/ L 0.24-0.36 tzcf=020) EOSINOPHILS ABSOLUTE COUNT (BEAKER) (test 0.30 K/ L 0.04-0.36 cymo=737) BASOPHILS ABSOLUTE COUNT (BEAKER) (test 0.05 K/ L 0.01-0.08 uvec=342) IMMATURE GRANULOCYTES-RELATIVE PERCENT (BEAKER) 0 % 0-1 (test gudk=1946) POCT-GLUCOSE [id number] 23:48:00 Test Item Value Reference Range Comments POC-GLUCOSE METER (BEAKER) 123 mg/dL 70-110 TESTED AT [address] (test lydi=3828) [place] [address] POCT-GLUCOSE [id number] 16:46:00 Test Item Value Reference Range Comments POC-GLUCOSE METER (BEAKER) 178 mg/dL 70-110 TESTED AT [address] (test guus=6782) [place] [address] BASIC METABOLIC [id number] 05:53:00 Test Item Value Reference Range Comments SODIUM (BEAKER) (test 139 meq/L 136-145 owgf=232) POTASSIUM (BEAKER) (test 3.9 meq/L 3.5-5.1 bfdo=478) CHLORIDE (BEAKER) (test 106 meq/L 98-107 jcjg=259) CO2 (BEAKER) (test 23 meq/L 22-29 pcuw=319) BLOOD UREA NITROGEN 62 mg/dL 7-21 (BEAKER) (test eicj=516) CREATININE (BEAKER) (test 2.05 mg/dL 0.57-1.25 pvtx=185) GLUCOSE RANDOM (BEAKER) 87 mg/dL 70-105 (test csag=296) CALCIUM (BEAKER) (test 7.9 mg/dL 8.4-10.2 obki=227) EGFR (BEAKER) (test 25 mL/min/1.73 sq m ESTIMATED GFR IS NOT xbgy=8972) ACCURATE CREATININE CLEARANCE IN PREDICTING GLOMERULAR FILTRATION RATE. ESTIMATED GFR IS NOT APPLICABLE FOR DIALYSIS PATIENTS. [id number] 05:52:00 Test Item Value Reference Range Comments PHOSPHORUS (BEAKER) (test gmgu=232) 4.2 mg/dL 2.3-4.7 [id number] 05:52:00 Test Item Value Reference Range Comments MAGNESIUM (BEAKER) (test yasi=141) 2.3 mg/dL 1.6-2.6 CALCIUM, [id number] 05:27:00 Test Item Value Reference Range Comments CALCIUM IONIZED (BEAKER) (test bduo=884) 1.12 mmol/L 1.12-1.27 PH, BLOOD (BEAKER) (test umst=1145) 7.38 CBC W/PLT COUNT & AUTO [id number] 05:07:00 Test Item Value Reference Range Comments WHITE BLOOD CELL COUNT (BEAKER) (test kvwi=500) 8.4 K/ L 3.5-10.5 RED BLOOD CELL COUNT (BEAKER) (test vjrd=242) 3.16 M/ L 3.93-5.22 HEMOGLOBIN (BEAKER) (test dlbd=824) 8.2 GM/DL 11.2-15.7 HEMATOCRIT (BEAKER) (test bpyz=562) 26.5 % 34.1-44.9 MEAN CORPUSCULAR VOLUME (BEAKER) (test hjoq=383) 83.9 fL 79.4-94.8 MEAN CORPUSCULAR HEMOGLOBIN (BEAKER) (test 25.9 pg 25.6-32.2 xfxv=604) MEAN CORPUSCULAR HEMOGLOBIN CONC (BEAKER) (test 30.9 GM/DL 32.2-35.5 crei=253) RED CELL DISTRIBUTION WIDTH (BEAKER) (test 14.6 % 11.7-14.4 vkpr=908) PLATELET COUNT (BEAKER) (test anpu=379) 256 K/CU MM 150-450 MEAN PLATELET VOLUME (BEAKER) (test uhza=593) 10.0 fL 9.4-12.3 NUCLEATED RED BLOOD CELLS (BEAKER) (test 0 /100 WBC 0-0 gnax=930) NEUTROPHILS RELATIVE PERCENT (BEAKER) (test 63 % vscy=345) LYMPHOCYTES RELATIVE PERCENT (BEAKER) (test 25 % phlw=870) MONOCYTES RELATIVE PERCENT (BEAKER) (test 8 % kjpx=686) EOSINOPHILS RELATIVE PERCENT (BEAKER) (test 3 % zmkz=931) BASOPHILS RELATIVE PERCENT (BEAKER) (test 1 % jntl=626) NEUTROPHILS ABSOLUTE COUNT (BEAKER) (test 5.27 K/ L 1.56-6.13 ejgp=786) LYMPHOCYTES ABSOLUTE COUNT (BEAKER) (test 2.09 K/ L 1.18-3.74 lomz=188) MONOCYTES ABSOLUTE COUNT (BEAKER) (test 0.63 K/ L 0.24-0.36 zhvb=360) EOSINOPHILS ABSOLUTE COUNT (BEAKER) (test 0.27 K/ L 0.04-0.36 vspx=762) BASOPHILS ABSOLUTE COUNT (BEAKER) (test 0.05 K/ L 0.01-0.08 nahi=327) IMMATURE GRANULOCYTES-RELATIVE PERCENT (BEAKER) 1 % 0-1 (test hhiq=9166) RAD, CHEST, 1 VIEW, NON [id number] 04:45:00Reason for exam:->pl effusionShould this be performed [...] MDReport Verified Date/Time: 05/25/2017 04:45:08 Reading Location: [address] Body Reading Room POCT-GLUCOSE [id number] 01:52:00 Test Item Value Reference Range Comments POC-GLUCOSE METER (BEAKER) 126 mg/dL 70-110 TESTED AT [address] (test hwxl=5117) [facility] [address] POCT-GLUCOSE [id number] 13:07:00 Test Item Value Reference Range Comments POC-GLUCOSE METER (BEAKER) 118 mg/dL 70-110 TESTED AT [place] [id number] [facility] (test mqzf=5002) [facility] [address] BRONCHIAL CULTURE + GRAM [id number] 11:35:00 Test Item Value Reference Range Comments CULTURE (BEAKER) (test rbkm=8288) Amikacin (test code=1) Susceptible 0-16 , Resistant [...] 0-40 , Sulfamethoxazole (test Resistant <0 or >40 code=47) CULTURE (BEAKER) (test 4+ Bordetella vadh=7342) bronchiseptica GRAM STAIN RESULT 1+ WBCs (BEAKER) (test zvjd=9097) GRAM STAIN RESULT <1+ gram positive (BEAKER) (test cocci in pairs hdtg=559800) GRAM STAIN RESULT 1+ gram variable (BEAKER) (test rods okyd=589739) 1+ Normal respiratory todd presentRAD, CHEST, 1 VIEW, NON [id number] 06:50: 00Reason for exam:->pl effusionShould this be performed at the bedside?-> YesFINAL REPORT RAD, CHEST, 1 VIEW, NON DEPT INDICATION: pl effusion COMPARISON:Prior day's exam FINDINGS: Portable frontal view of the chest. IMPRESSION: Support Lines: Stable.Lungs and pleura: Unchanged airspace and pleural opacities. No pneumothorax.Heart and mediastinum: Stable contours. Stable surgical changes.Additional findings: None. Signed: JR Boswell Robert MDReport Verified Date/Time: 05/24/2017 06:50:08 Reading Location: [address] Body Reading Room BASIC METABOLIC [id number] 04: 19:00 Test Item Value Reference Range Comments SODIUM (BEAKER) (test 136 meq/L 136-145 rrlz=622) POTASSIUM (BEAKER) (test 4.3 meq/L 3.5-5.1 sknh=612) CHLORIDE (BEAKER) (test 104 meq/L 98-107 qxwo=326) CO2 (BEAKER) (test 20 meq/L 22-29 pvkx=942) BLOOD UREA NITROGEN 61 mg/dL 7-21 (BEAKER) (test zmqi=728) CREATININE (BEAKER) (test 2.69 mg/dL 0.57-1.25 khvr=652) GLUCOSE RANDOM (BEAKER) 107 mg/dL 70-105 (test bceg=246) CALCIUM (BEAKER) (test 7.8 mg/dL 8.4-10.2 gefb=971) EGFR (BEAKER) (test 18 mL/min/1.73 sq m ESTIMATED GFR IS NOT tftt=3425) ACCURATE CREATININE CLEARANCE IN PREDICTING GLOMERULAR FILTRATION RATE. ESTIMATED GFR IS NOT APPLICABLE FOR DIALYSIS PATIENTS. CALCIUM, [id number] 04:16:00 Test Item Value Reference Range Comments CALCIUM IONIZED (BEAKER) (test uhqz=242) 1.06 mmol/L 1.12-1.27 PH, BLOOD (BEAKER) (test qylk=8707) 7.40 [id number] 04:11:00 Test Item Value Reference Range Comments PHOSPHORUS (BEAKER) (test ehiu=765) 6.0 mg/dL 2.3-4.7 [id number] 04:11:00 Test Item Value Reference Range Comments MAGNESIUM (BEAKER) (test ittl=330) 2.4 mg/dL 1.6-2.6 CBC W/PLT COUNT & AUTO [id number] 03:50:00 Test Item Value Reference Range Comments WHITE BLOOD CELL COUNT (BEAKER) (test myhc=460) 9.5 K/ L 3.5-10.5 RED BLOOD CELL COUNT (BEAKER) (test lnbj=206) 3.06 M/ L 3.93-5.22 HEMOGLOBIN (BEAKER) (test cvyr=218) 7.9 GM/DL 11.2-15.7 HEMATOCRIT (BEAKER) (test yofn=098) 25.5 % 34.1-44.9 MEAN CORPUSCULAR VOLUME (BEAKER) (test nfek=254) 83.3 fL 79.4-94.8 MEAN CORPUSCULAR HEMOGLOBIN (BEAKER) (test 25.8 pg 25.6-32.2 qapy=876) MEAN CORPUSCULAR HEMOGLOBIN CONC (BEAKER) (test 31.0 GM/DL 32.2-35.5 ousm=229) RED CELL DISTRIBUTION WIDTH (BEAKER) (test 15.1 % 11.7-14.4 xmfp=029) PLATELET COUNT (BEAKER) (test xeuy=007) 224 K/CU MM 150-450 MEAN PLATELET VOLUME (BEAKER) (test mkcc=548) 10.5 fL 9.4-12.3 NUCLEATED RED BLOOD CELLS (BEAKER) (test 0 /100 WBC 0-0 wngd=456) NEUTROPHILS RELATIVE PERCENT (BEAKER) (test 70 % iali=428) LYMPHOCYTES RELATIVE PERCENT (BEAKER) (test 21 % rhcj=213) MONOCYTES RELATIVE PERCENT (BEAKER) (test 7 % qapz=868) EOSINOPHILS RELATIVE PERCENT (BEAKER) (test 2 % hygq=971) BASOPHILS RELATIVE PERCENT (BEAKER) (test 0 % owqe=810) NEUTROPHILS ABSOLUTE COUNT (BEAKER) (test 6.60 K/ L 1.56-6.13 tacb=728) LYMPHOCYTES ABSOLUTE COUNT (BEAKER) (test 2.02 K/ L 1.18-3.74 mrlx=444) MONOCYTES ABSOLUTE COUNT (BEAKER) (test 0.63 K/ L 0.24-0.36 xbjo=980) EOSINOPHILS ABSOLUTE COUNT (BEAKER) (test 0.15 K/ L 0.04-0.36 brmj=929) BASOPHILS ABSOLUTE COUNT (BEAKER) (test 0.04 K/ L 0.01-0.08 oewc=009) IMMATURE GRANULOCYTES-RELATIVE PERCENT (BEAKER) 0 % 0-1 (test eyxa=3136) POCT-GLUCOSE [id number] 20:45:00 Test Item Value Reference Range Comments POC-GLUCOSE METER (BEAKER) 143 mg/dL 70-110 TESTED AT [place] [address] [address] (test eimf=2899) [facility] [address] POCT-GLUCOSE [id number] 20:45:00 Test Item Value Reference Range Comments POC-GLUCOSE METER (BEAKER) 145 mg/dL 70-110 TESTED AT [place] [address] [address] (test ibro=1758) [facility] [address] [id number] 13:37:00 Test Item Value Reference Range Comments PREALBUMIN (BEAKER) (test 10 mg/dL 14-45 Specimen slightly hemolyzed yzup=952) OXYGEN SATURATION, [id number] 12:31:00 Test Item Value Reference Range Comments O2 SATURATION (MEASURED) (BEAKER) (test ycdn=1246) 94.5 % [id number] 11:02:00 Test Item Value Reference Range Comments PREALBUMIN (BEAKER) (test zgjv=082) 10 mg/dL 14-45 RAD, CHEST, 1 VIEW, NON [id number] 05:14:00while patient is intubated or has chest [...] MDReport Verified Date/Time: 05/23/2017 05:14:04 Reading Location: [address] Body Reading Room BASIC METABOLIC [id number] 03:48:00 Test Item Value Reference Range Comments SODIUM (BEAKER) (test 138 meq/L 136-145 hpkg=579) POTASSIUM (BEAKER) (test 4.6 meq/L 3.5-5.1 Specimen slightly nowi=385) hemolyzed CHLORIDE (BEAKER) (test 106 meq/L 98-107 znff=344) CO2 (BEAKER) (test 20 meq/L 22-29 jfxb=938) BLOOD UREA NITROGEN 54 mg/dL 7-21 (BEAKER) (test hvih=081) CREATININE (BEAKER) (test 2.66 mg/dL 0.57-1.25 Specimen slightly shky=208) hemolyzed GLUCOSE RANDOM (BEAKER) 113 mg/dL 70-105 (test vnde=701) CALCIUM (BEAKER) (test 7.9 mg/dL 8.4-10.2 drcz=151) EGFR (BEAKER) (test 18 mL/min/1.73 sq m ESTIMATED GFR IS NOT bjpe=2502) ACCURATE CREATININE CLEARANCE IN PREDICTING GLOMERULAR FILTRATION RATE. ESTIMATED GFR IS NOT APPLICABLE FOR DIALYSIS PATIENTS. [id number] 03:46:00 Test Item Value Reference Range Comments MAGNESIUM (BEAKER) (test 2.4 mg/dL 1.6-2.6 Specimen slightly hemolyzed dhnj=311) [id number] 03:46:00 Test Item Value Reference Range Comments PHOSPHORUS (BEAKER) (test 6.5 mg/dL 2.3-4.7 Specimen slightly hemolyzed ugbh=701) CBC W/PLT COUNT & AUTO [id number] 03:26:00 Test Item Value Reference Range Comments WHITE BLOOD CELL COUNT (BEAKER) (test saul=831) 10.8 K/ L 3.5-10.5 RED BLOOD CELL COUNT (BEAKER) (test osth=516) 3.16 M/ L 3.93-5.22 HEMOGLOBIN (BEAKER) (test yvgm=711) 8.2 GM/DL 11.2-15.7 HEMATOCRIT (BEAKER) (test nodf=729) 26.6 % 34.1-44.9 MEAN CORPUSCULAR VOLUME (BEAKER) (test kolz=558) 84.2 fL 79.4-94.8 MEAN CORPUSCULAR HEMOGLOBIN (BEAKER) (test 25.9 pg 25.6-32.2 znzi=066) MEAN CORPUSCULAR HEMOGLOBIN CONC (BEAKER) (test 30.8 GM/DL 32.2-35.5 secy=133) RED CELL DISTRIBUTION WIDTH (BEAKER) (test 15.0 % 11.7-14.4 nzgo=133) PLATELET COUNT (BEAKER) (test nivs=754) 195 K/CU MM 150-450 MEAN PLATELET VOLUME (BEAKER) (test jkxy=462) 10.6 fL 9.4-12.3 NUCLEATED RED BLOOD CELLS (BEAKER) (test 0 /100 WBC 0-0 jdlr=652) NEUTROPHILS RELATIVE PERCENT (BEAKER) (test 73 % zedx=787) LYMPHOCYTES RELATIVE PERCENT (BEAKER) (test 18 % qikp=691) MONOCYTES RELATIVE PERCENT (BEAKER) (test 6 % nrgi=398) EOSINOPHILS RELATIVE PERCENT (BEAKER) (test 2 % tjlg=935) BASOPHILS RELATIVE PERCENT (BEAKER) (test 1 % jzcy=303) NEUTROPHILS ABSOLUTE COUNT (BEAKER) (test 7.95 K/ L 1.56-6.13 feyq=046) LYMPHOCYTES ABSOLUTE COUNT (BEAKER) (test 1.93 K/ L 1.18-3.74 ntxh=569) MONOCYTES ABSOLUTE COUNT (BEAKER) (test 0.66 K/ L 0.24-0.36 jgsn=056) EOSINOPHILS ABSOLUTE COUNT (BEAKER) (test 0.18 K/ L 0.04-0.36 oeyf=965) BASOPHILS ABSOLUTE COUNT (BEAKER) (test 0.07 K/ L 0.01-0.08 vzyp=580) IMMATURE GRANULOCYTES-RELATIVE PERCENT (BEAKER) 0 % 0-1 (test hbip=7770) BLOOD GAS, [id number] 03:18:00 Test Item Value Reference Range Comments PH ARTERIAL (BEAKER) (test wote=840) 7.40 7.35-7.45 PCO2 ARTERIAL (BEAKER) (test cgqw=213) 40 mmHg 35-45 PO2 ARTERIAL (BEAKER) (test dnue=510) 63 mmHg 80-90 O2 SATURATION ARTERIAL (BEAKER) (test himo=294) 92.3 % 96.0-97.0 HCO3 ARTERIAL (BEAKER) (test unys=556) 24 mmol/L 21-29 BASE EXCESS ARTERIAL (BEAKER) (test vrrf=084) -0.6 mmol/L -2.0-3.0 PATIENT TEMPERATURE (BEAKER) (test vbok=0269) 36.8 C FIO2 (BEAKER) (test ccdw=5724) 36.0 % CALCIUM, [id number] 16:32:00 Test Item Value Reference Range Comments CALCIUM IONIZED (BEAKER) (test cvfk=501) 1.11 mmol/L 1.12-1.27 PH, BLOOD (BEAKER) (test ttui=5983) 7.39 BASIC METABOLIC [id number] 15:43:00 Test Item Value Reference Range Comments SODIUM (BEAKER) (test 139 meq/L 136-145 upkl=136) POTASSIUM (BEAKER) (test 4.6 meq/L 3.5-5.1 jvjh=337) CHLORIDE (BEAKER) (test 106 meq/L 98-107 hlgs=290) CO2 (BEAKER) (test 21 meq/L 22-29 nlpk=071) BLOOD UREA NITROGEN 54 mg/dL 7-21 (BEAKER) (test bmcd=692) CREATININE (BEAKER) (test 3.08 mg/dL 0.57-1.25 zwyq=249) GLUCOSE RANDOM (BEAKER) 116 mg/dL 70-105 (test hpxo=473) CALCIUM (BEAKER) (test 8.1 mg/dL 8.4-10.2 bihg=321) EGFR (BEAKER) (test 15 mL/min/1.73 sq m ESTIMATED GFR IS NOT esix=0590) ACCURATE CREATININE CLEARANCE IN PREDICTING GLOMERULAR FILTRATION RATE. ESTIMATED GFR IS NOT APPLICABLE FOR DIALYSIS PATIENTS. POCT-GLUCOSE [id number] 12:53:00 Test Item Value Reference Range Comments POC-GLUCOSE METER (BEAKER) 118 mg/dL 70-110 TESTED AT [address] (test wyxv=9524) [place] [id number] BLOOD GAS, [id number] 10:42:00 Test Item Value Reference Range Comments PH ARTERIAL (BEAKER) (test evza=218) 7.40 7.35-7.45 PCO2 ARTERIAL (BEAKER) (test cvaz=388) 38 mmHg 35-45 PO2 ARTERIAL (BEAKER) (test axic=171) 78 mmHg 80-90 O2 SATURATION ARTERIAL (BEAKER) (test xvlz=068) 95.6 % 96.0-97.0 HCO3 ARTERIAL (BEAKER) (test ocjl=265) 23 mmol/L 21-29 BASE EXCESS ARTERIAL (BEAKER) (test ztcv=758) -1.4 mmol/L -2.0-3.0 PATIENT TEMPERATURE (BEAKER) (test zvpo=6307) 36.9 C FIO2 (BEAKER) (test bgwt=0975) 40.0 % POCT-GLUCOSE [id number] 06:46:00 Test Item Value Reference Range Comments POC-GLUCOSE METER (BEAKER) 106 mg/dL 70-110 TESTED AT [address] (test rxnr=4964) [place] [id number] RAD, CHEST, 1 VIEW, NON [id number] 05:05:00while patient is intubated or has chest [...] MDReport Verified Date/Time: 05/22/2017 05:05:00 Reading Location: [facility] C013Y CT Body ReadingRoom BASIC METABOLIC [id number] 05:00:00 Test Item Value Reference Range Comments SODIUM (BEAKER) (test 138 meq/L 136-145 dlfr=489) POTASSIUM (BEAKER) (test 4.5 meq/L 3.5-5.1 zfde=394) CHLORIDE (BEAKER) (test 107 meq/L 98-107 cgch=019) CO2 (BEAKER) (test 21 meq/L 22-29 sian=037) BLOOD UREA NITROGEN 53 mg/dL 7-21 (BEAKER) (test kwzr=405) CREATININE (BEAKER) (test 3.23 mg/dL 0.57-1.25 tksr=444) GLUCOSE RANDOM (BEAKER) 126 mg/dL 70-105 (test guor=213) CALCIUM (BEAKER) (test 8.1 mg/dL 8.4-10.2 rxwl=756) EGFR (BEAKER) (test 15 mL/min/1.73 sq m ESTIMATED GFR IS NOT odeb=4510) ACCURATE CREATININE CLEARANCE IN PREDICTING GLOMERULAR FILTRATION RATE. ESTIMATED GFR IS NOT APPLICABLE FOR DIALYSIS PATIENTS. [id number] 04:41:00 Test Item Value Reference Range Comments PHOSPHORUS (BEAKER) (test yval=996) 6.4 mg/dL 2.3-4.7 [id number] 04:41:00 Test Item Value Reference Range Comments MAGNESIUM (BEAKER) (test rraw=209) 2.6 mg/dL 1.6-2.6 CALCIUM, [id number] 04:26:00 Test Item Value Reference Range Comments CALCIUM IONIZED (BEAKER) (test mswl=270) 1.09 mmol/L 1.12-1.27 PH, BLOOD (BEAKER) (test ximg=3570) 7.40 OXYGEN SATURATION, [id number] 04:25:00 Test Item Value Reference Range Comments O2 SATURATION (MEASURED) (BEAKER) (test pwgz=3278) 77.0 % CBC W/PLT COUNT & AUTO [id number] 04:17:00 Test Item Value Reference Range Comments WHITE BLOOD CELL COUNT (BEAKER) (test fgqc=805) 8.9 K/ L 3.5-10.5 RED BLOOD CELL COUNT (BEAKER) (test vcdh=249) 3.14 M/ L 3.93-5.22 HEMOGLOBIN (BEAKER) (test ynpz=789) 8.1 GM/DL 11.2-15.7 HEMATOCRIT (BEAKER) (test gcdm=371) 26.1 % 34.1-44.9 MEAN CORPUSCULAR VOLUME (BEAKER) (test gome=182) 83.1 fL 79.4-94.8 MEAN CORPUSCULAR HEMOGLOBIN (BEAKER) (test 25.8 pg 25.6-32.2 dgwy=676) MEAN CORPUSCULAR HEMOGLOBIN CONC (BEAKER) (test 31.0 GM/DL 32.2-35.5 fave=348) RED CELL DISTRIBUTION WIDTH (BEAKER) (test 15.3 % 11.7-14.4 uqez=113) PLATELET COUNT (BEAKER) (test ottf=568) 156 K/CU MM 150-450 MEAN PLATELET VOLUME (BEAKER) (test zqlc=657) 10.2 fL 9.4-12.3 NUCLEATED RED BLOOD CELLS (BEAKER) (test 0 /100 WBC 0-0 ahtj=040) NEUTROPHILS RELATIVE PERCENT (BEAKER) (test 68 % dvww=348) LYMPHOCYTES RELATIVE PERCENT (BEAKER) (test 22 % xhwe=200) MONOCYTES RELATIVE PERCENT (BEAKER) (test 8 % jptb=258) EOSINOPHILS RELATIVE PERCENT (BEAKER) (test 1 % fwzm=439) BASOPHILS RELATIVE PERCENT (BEAKER) (test 1 % fzlq=445) NEUTROPHILS ABSOLUTE COUNT (BEAKER) (test 6.05 K/ L 1.56-6.13 jhsg=980) LYMPHOCYTES ABSOLUTE COUNT (BEAKER) (test 1.91 K/ L 1.18-3.74 lwaf=379) MONOCYTES ABSOLUTE COUNT (BEAKER) (test 0.74 K/ L 0.24-0.36 aqao=183) EOSINOPHILS ABSOLUTE COUNT (BEAKER) (test 0.08 K/ L 0.04-0.36 pmav=797) BASOPHILS ABSOLUTE COUNT (BEAKER) (test 0.05 K/ L 0.01-0.08 yjdy=249) IMMATURE GRANULOCYTES-RELATIVE PERCENT (BEAKER) 0 % 0-1 (test oiig=8532) LACTIC ACID, ARTERIAL, WHOLE [id number] 00:07:00 Test Item Value Reference Range Comments LACTATE BLOOD ARTERIAL (2) 1.0 mmol/L 0.5-2.2 Specimen slightly hemolyzed (BEAKER) (test eakz=1042) Effective 08/02/2015: Units/Reference Range ChangeNew: 0.5-2.2 mmol/L Previous: 5 -20 mg/dLPOCT-GLUCOSE [id number] 23:47:00 Test Item Value Reference Range Comments POC-GLUCOSE METER (BEAKER) 180 mg/dL 70-110 TESTED AT [facility] [address] [facility] (test tdhv=5563) [facility] [address] BLOOD GAS, [id number] 23:46:00 Test Item Value Reference Range Comments PH ARTERIAL (BEAKER) (test tmjm=022) 7.40 7.35-7.45 PCO2 ARTERIAL (BEAKER) (test movb=870) 37 mmHg 35-45 PO2 ARTERIAL (BEAKER) (test cmys=985) 136 mmHg 80-90 O2 SATURATION ARTERIAL (BEAKER) (test shod=548) 98.7 % 96.0-97.0 HCO3 ARTERIAL (BEAKER) (test wpba=455) 22 mmol/L 21-29 BASE EXCESS ARTERIAL (BEAKER) (test pkku=751) -2.4 mmol/L -2.0-3.0 PATIENT TEMPERATURE (BEAKER) (test hclr=1194) 37.0 C FIO2 (BEAKER) (test rbvk=1713) 100.0 % SODIUM NA-STAT [id number] 23:46:00 Test Item Value Reference Range Comments SODIUM (BEAKER) (test eggh=198) 134 meq/L 135-148 GLUCOSE-STAT [id number] 23:46:00 Test Item Value Reference Range Comments GLUCOSE RANDOM (BEAKER) (test qqvx=533) 119 mg/dL 70-110 HGB/HCT (H&H) - STAT [id number] 23:46:00 Test Item Value Reference Range Comments HEMOGLOBIN (BEAKER) (test fryw=128) 8.8 g/dL 12.0-15.0 HEMATOCRIT (BEAKER) (test mwih=858) 26.0 % 36.0-45.0 OXYGEN SATURATION, [id number] 23:45:00 Test Item Value Reference Range Comments O2 SATURATION (MEASURED) (BEAKER) (test azqs=0514) 68.1 % POTASSIUM-STAT [id number] 23:45:00 Test Item Value Reference Range Comments POTASSIUM (BEAKER) (test sabo=160) 5.5 meq/L 3.6-5.5 POCT-GLUCOSE [id number] 20:58:00 Test Item Value Reference Range Comments POC-GLUCOSE METER (BEAKER) 133 mg/dL 70-110 TESTED AT [address] (test lsll=1244) [facility] [address] POCT-GLUCOSE [id number] 17:58:00 Test Item Value Reference Range Comments POC-GLUCOSE METER (BEAKER) 210 mg/dL 70-110 TESTED AT [address] (test hiir=1222) [facility] [address] POCT-GLUCOSE [id number] 17:58:00 Test Item Value Reference Range Comments POC-GLUCOSE METER (BEAKER) 211 mg/dL 70-110 TESTED AT [address] (test dodg=2515) [facility] [address] POCT-GLUCOSE [id number] 17:58:00 Test Item Value Reference Range Comments POC-GLUCOSE METER (BEAKER) 232 mg/dL 70-110 TESTED AT [address] (test fcrg=1549) [facility] [address] POCT-GLUCOSE [id number] 17:58:00 Test Item Value Reference Range Comments POC-GLUCOSE METER (BEAKER) 262 mg/dL 70-110 TESTED AT [address] (test fhkv=7793) [place] [id number] BLOOD GAS, [id number] 17:01:00 Test Item Value Reference Range Comments PH ARTERIAL (BEAKER) (test lcia=452) 7.38 7.35-7.45 PCO2 ARTERIAL (BEAKER) (test iepu=111) 39 mmHg 35-45 PO2 ARTERIAL (BEAKER) (test bwdq=381) 75 mmHg 80-90 O2 SATURATION ARTERIAL (BEAKER) (test mtvt=904) 94.9 % 96.0-97.0 HCO3 ARTERIAL (BEAKER) (test pbmj=832) 23 mmol/L 21-29 BASE EXCESS ARTERIAL (BEAKER) (test vgxh=290) -2.5 mmol/L -2.0-3.0 PATIENT TEMPERATURE (BEAKER) (test pxxw=4591) 36.8 C FIO2 (BEAKER) (test acsx=6488) 60.0 % POTASSIUM-STAT [id number] 17:00:00 Test Item Value Reference Range Comments POTASSIUM (BEAKER) (test gopo=506) 4.8 meq/L 3.6-5.5 POCT-GLUCOSE [id number] 15:52:00 Test Item Value Reference Range Comments POC-GLUCOSE METER (BEAKER) 267 mg/dL 70-110 TESTED AT [address] (test bgct=6494) [place] [address] POCT-GLUCOSE [id number] 14:42:00 Test Item Value Reference Range Comments POC-GLUCOSE METER (BEAKER) 231 mg/dL 70-110 TESTED AT [address] (test ojst=9464) [place] [address] BODY FLUID CELL COUNT WITH [id number] 14:41:00 Test Item Value Reference Range Comments APPEARANCE FLUID (BEAKER) (test egyj=182) Turbid Clear COLOR FLUID (BEAKER) (test hbwx=877) Colorless Colorless, Straw RBC FLUID (BEAKER) (test pbap=600) 2000 /cu mm <=1 ADJUSTED WBC FLUID (BEAKER) (test jmhc=7228) 1489 /cu mm <=5 LINING CELLS (BEAKER) (test cdmo=2589) 119 /cu mm <=1 NEUTROPHILS FLUID (BEAKER) (test jbkd=5505) 40 % LYMPHS FLUID (BEAKER) (test jwiz=705) 34 % MONO/MACROPHAGE FLUID (BEAKER) (test zpub=783) 26 % EOSINOPHILS FLUID (BEAKER) (test fsro=423) 0 % BASO FLUID (BEAKER) (test bttv=028) 0 % CONTAINER BODY FLUID (BEAKER) (test lzcc=4723) EDTA Tube BASIC METABOLIC [id number] 14:11:00 Test Item Value Reference Range Comments SODIUM (BEAKER) (test 137 meq/L 136-145 liqc=588) POTASSIUM (BEAKER) (test 5.6 meq/L 3.5-5.1 xrvz=349) CHLORIDE (BEAKER) (test 106 meq/L 98-107 ghyg=060) CO2 (BEAKER) (test 20 meq/L 22-29 oebe=992) BLOOD UREA NITROGEN 48 mg/dL 7-21 (BEAKER) (test sgai=796) CREATININE (BEAKER) (test 2.50 mg/dL 0.57-1.25 lmjq=417) GLUCOSE RANDOM (BEAKER) 221 mg/dL 70-105 (test qpcj=653) CALCIUM (BEAKER) (test 8.1 mg/dL 8.4-10.2 gpzp=632) EGFR (BEAKER) (test 20 mL/min/1.73 sq m ESTIMATED GFR IS NOT cioe=6864) ACCURATE CREATININE CLEARANCE IN PREDICTING GLOMERULAR FILTRATION RATE. ESTIMATED GFR IS NOT APPLICABLE FOR DIALYSIS PATIENTS. [id number] 14:08:00 Test Item Value Reference Range Comments PHOSPHORUS (BEAKER) (test qkkh=191) 7.2 mg/dL 2.3-4.7 [id number] 14:08:00 Test Item Value Reference Range Comments MAGNESIUM (BEAKER) (test wnxi=800) 2.6 mg/dL 1.6-2.6 POCT-GLUCOSE [id number] 12:49:00 Test Item Value Reference Range Comments POC-GLUCOSE METER (BEAKER) 224 mg/dL 70-110 TESTED AT [facility] [address] (test vwjx=0109) [facility] [address] POCT-GLUCOSE [id number] 12:49:00 Test Item Value Reference Range Comments POC-GLUCOSE METER (BEAKER) 248 mg/dL 70-110 TESTED AT [facility] [address] (test ixgf=1639) [facility] [address] RAD, CHEST, 1 VIEW, NON [id number] 12:32:00Reason for exam:->re- intubationShould this be performed [...] MDReport Verified Date/Time: 05/21/2017 12:32:08 Reading Location: [facility] Radiology Reading Room POTASSIUM-STAT [id number] 12:28:00 Test Item Value Reference Range Comments POTASSIUM (BEAKER) (test tukw=893) 5.5 meq/L 3.6-5.5 BLOOD GAS, [id number] 12:28:00 Test Item Value Reference Range Comments PH ARTERIAL (BEAKER) (test vxnd=109) 7.32 7.35-7.45 PCO2 ARTERIAL (BEAKER) (test xukl=657) 45 mmHg 35-45 PO2 ARTERIAL (BEAKER) (test qrrd=588) 304 mmHg 80-90 O2 SATURATION ARTERIAL (BEAKER) (test onkj=825) 99.7 % 96.0-97.0 HCO3 ARTERIAL (BEAKER) (test cfny=680) 22 mmol/L 21-29 BASE EXCESS ARTERIAL (BEAKER) (test paep=165) -3.7 mmol/L -2.0-3.0 PATIENT TEMPERATURE (BEAKER) (test stoy=8987) 37.0 C FIO2 (BEAKER) (test mrmg=1992) 100.0 % BLOOD GAS, [id number] 10:53:00 Test Item Value Reference Range Comments PH ARTERIAL (BEAKER) (test wazx=382) 7.36 7.35-7.45 PCO2 ARTERIAL (BEAKER) (test qvca=675) 35 mmHg 35-45 PO2 ARTERIAL (BEAKER) (test llkm=732) 40 mmHg 80-90 O2 SATURATION ARTERIAL (BEAKER) (test hiwp=912) 82.3 % 96.0-97.0 HCO3 ARTERIAL (BEAKER) (test daej=757) 20 mmol/L 21-29 BASE EXCESS ARTERIAL (BEAKER) (test idqp=216) -5.9 mmol/L -2.0-3.0 PATIENT TEMPERATURE (BEAKER) (test smlf=8765) 33.7 C FIO2 (BEAKER) (test mjwu=1915) 36.0 % RAD, CHEST, 1 VIEW, NON [id number] 08:46:00while patient is intubated or has chest [...] left apical pneumothorax is suspected. Signed: Magdalena White MDReport Verified Date/ Time: 05/21/2017 08:46:27 Reading Location: [facility] Radiology Reading Room BLOOD GAS, [id number] 05:41:00 Test Item Value Reference Range Comments PH ARTERIAL (BEAKER) (test jgsg=012) 7.33 7.35-7.45 PCO2 ARTERIAL (BEAKER) (test xvlk=766) 40 mm Hg 35-45 PO2 ARTERIAL (BEAKER) (test cjbs=963) 106 mm Hg 80-90 O2 SATURATION ARTERIAL (BEAKER) (test bfwz=994) 97.5 % 96.0-97.0 HCO3 ARTERIAL (BEAKER) (test wyyn=842) 21 mmol/L 21-29 BASE EXCESS ARTERIAL (BEAKER) (test fqjv=487) -5.1 mmol/L -2.0-3.0 PATIENT TEMPERATURE (BEAKER) (test mvra=4044) 37.0 FIO2 (BEAKER) (test dngv=1395) 40 CALCIUM, [id number] 04:35:00 Test Item Value Reference Range Comments CALCIUM IONIZED (BEAKER) (test mxmw=215) 1.13 mmol/L 1.12-1.27 PH, BLOOD (BEAKER) (test thcw=3313) 7.32 BLOOD GAS, [id number] 04:28:00 Test Item Value Reference Range Comments PH ARTERIAL (BEAKER) (test vveq=010) 7.32 7.35-7.45 PCO2 ARTERIAL (BEAKER) (test ayuf=181) 40 mmHg 35-45 PO2 ARTERIAL (BEAKER) (test hnko=318) 100 mmHg 80-90 O2 SATURATION ARTERIAL (BEAKER) (test vghl=814) 97.2 % 96.0-97.0 HCO3 ARTERIAL (BEAKER) (test rrcs=859) 20 mmol/L 21-29 BASE EXCESS ARTERIAL (BEAKER) (test armx=094) -5.7 mmol/L -2.0-3.0 PATIENT TEMPERATURE (BEAKER) (test kvyu=2702) 36.9 C FIO2 (BEAKER) (test xpcm=5577) 40.0 % [id number] 04:20:00 Test Item Value Reference Range Comments PHOSPHORUS (BEAKER) (test ikct=323) 6.2 mg/dL 2.3-4.7 [id number] 04:20:00 Test Item Value Reference Range Comments MAGNESIUM (BEAKER) (test wxtv=254) 2.4 mg/dL 1.6-2.6 HEPATIC FUNCTION [id number] 04:20:00 Test Item Value Reference Range Comments TOTAL PROTEIN (BEAKER) (test mbaz=692) 4.8 gm/dL 6.0-8.3 ALBUMIN (BEAKER) (test qoei=9603) 2.5 g/dL 3.5-5.0 BILIRUBIN TOTAL (BEAKER) (test jprr=758) 0.7 mg/dL 0.2-1.2 BILIRUBIN DIRECT (BEAKER) (test dunw=356) 0.3 mg/dL 0.1-0.5 ALKALINE PHOSPHATASE (BEAKER) (test zuek=939) 96 U/L 40-150 AST (SGOT) (BEAKER) (test ctcd=308) 31 U/L 5-34 ALT (SGPT) (BEAKER) (test abnr=739) 11 U/L 6-55 BASIC METABOLIC [id number] 04:20:00 Test Item Value Reference Range Comments SODIUM (BEAKER) (test 134 meq/L 136-145 yoxr=935) POTASSIUM (BEAKER) (test 5.0 meq/L 3.5-5.1 gxzo=488) CHLORIDE (BEAKER) (test 105 meq/L 98-107 xdox=372) CO2 (BEAKER) (test 18 meq/L 22-29 rsjo=774) BLOOD UREA NITROGEN 45 mg/dL 7-21 (BEAKER) (test izyj=412) CREATININE (BEAKER) (test 1.91 mg/dL 0.57-1.25 ollr=386) GLUCOSE RANDOM (BEAKER) 247 mg/dL 70-105 (test vorq=635) CALCIUM (BEAKER) (test 7.9 mg/dL 8.4-10.2 ixss=904) EGFR (BEAKER) (test 27 mL/min/1.73 sq m ESTIMATED GFR IS NOT yaos=3252) ACCURATE CREATININE CLEARANCE IN PREDICTING GLOMERULAR FILTRATION RATE. ESTIMATED GFR IS NOT APPLICABLE FOR DIALYSIS PATIENTS. OXYGEN SATURATION, [id number] 04:18:00 Test Item Value Reference Range Comments O2 SATURATION (MEASURED) (BEAKER) (test oije=2278) 68.0 % LACTIC ACID, ARTERIAL, WHOLE [id number] 04:12:00 Test Item Value Reference Range Comments LACTATE BLOOD ARTERIAL (2) (BEAKER) (test 1.0 mmol/L 0.5-2.2 ozlz=4072) Effective 08/02/2015: Units/Reference Range ChangeNew: 0.5-2.2 mmol/L Previous: 5 -20 mg/dLCBC W/PLT COUNT & AUTO [id number] 04:00:00 Test Item Value Reference Range Comments WHITE BLOOD CELL COUNT (BEAKER) (test zcfa=799) 12.0 K/ L 3.5-10.5 RED BLOOD CELL COUNT (BEAKER) (test sywu=696) 3.32 M/ L 3.93-5.22 HEMOGLOBIN (BEAKER) (test xpho=157) 8.8 GM/DL 11.2-15.7 HEMATOCRIT (BEAKER) (test beip=382) 28.3 % 34.1-44.9 MEAN CORPUSCULAR VOLUME (BEAKER) (test jqta=597) 85.2 fL 79.4-94.8 MEAN CORPUSCULAR HEMOGLOBIN (BEAKER) (test 26.5 pg 25.6-32.2 rogz=655) MEAN CORPUSCULAR HEMOGLOBIN CONC (BEAKER) (test 31.1 GM/DL 32.2-35.5 kbem=790) RED CELL DISTRIBUTION WIDTH (BEAKER) (test 15.0 % 11.7-14.4 eeza=512) PLATELET COUNT (BEAKER) (test hfdy=265) 157 K/CU MM 150-450 MEAN PLATELET VOLUME (BEAKER) (test ofip=270) 10.7 fL 9.4-12.3 NUCLEATED RED BLOOD CELLS (BEAKER) (test 0 /100 WBC 0-0 ndcl=262) NEUTROPHILS RELATIVE PERCENT (BEAKER) (test 91 % mbav=043) LYMPHOCYTES RELATIVE PERCENT (BEAKER) (test 4 % vtbk=191) MONOCYTES RELATIVE PERCENT (BEAKER) (test 4 % rllf=073) EOSINOPHILS RELATIVE PERCENT (BEAKER) (test 0 % srff=537) BASOPHILS RELATIVE PERCENT (BEAKER) (test 0 % ytfb=038) NEUTROPHILS ABSOLUTE COUNT (BEAKER) (test 10.95 K/ L 1.56-6.13 zsgv=523) LYMPHOCYTES ABSOLUTE COUNT (BEAKER) (test 0.52 K/ L 1.18-3.74 pisw=845) MONOCYTES ABSOLUTE COUNT (BEAKER) (test 0.42 K/ L 0.24-0.36 jces=510) EOSINOPHILS ABSOLUTE COUNT (BEAKER) (test 0.01 K/ L 0.04-0.36 tibf=022) BASOPHILS ABSOLUTE COUNT (BEAKER) (test 0.05 K/ L 0.01-0.08 klev=331) IMMATURE GRANULOCYTES-RELATIVE PERCENT (BEAKER) 0 % 0-1 (test zjil=6875) BLOOD GAS, [id number] 00:06:00 Test Item Value Reference Range Comments PH ARTERIAL (BEAKER) (test dysh=005) 7.26 7.35-7.45 PCO2 ARTERIAL (BEAKER) (test yhjb=145) 52 mmHg 35-45 PO2 ARTERIAL (BEAKER) (test yiyq=381) 88 mmHg 80-90 O2 SATURATION ARTERIAL (BEAKER) (test odol=133) 95.7 % 96.0-97.0 HCO3 ARTERIAL (BEAKER) (test bjdt=604) 23 mmol/L 21-29 BASE EXCESS ARTERIAL (BEAKER) (test gexp=152) -4.0 mmol/L -2.0-3.0 PATIENT TEMPERATURE (BEAKER) (test bpue=2329) 36.4 C FIO2 (BEAKER) (test gixn=4451) 40.0 % [id number] 18:55:00 Test Item Value Reference Range Comments PHOSPHORUS (BEAKER) (test alac=655) 4.8 mg/dL 2.3-4.7 [id number] 18:55:00 Test Item Value Reference Range Comments MAGNESIUM (BEAKER) (test pvpt=967) 2.3 mg/dL 1.6-2.6 BASIC METABOLIC [id number] 18:55:00 Test Item Value Reference Range Comments SODIUM (BEAKER) (test 136 meq/L 136-145 vbxp=836) POTASSIUM (BEAKER) (test 4.5 meq/L 3.5-5.1 bwxe=744) CHLORIDE (BEAKER) (test 108 meq/L 98-107 meia=954) CO2 (BEAKER) (test 21 meq/L 22-29 yeqt=731) BLOOD UREA NITROGEN 39 mg/dL 7-21 (BEAKER) (test ygay=580) CREATININE (BEAKER) (test 1.58 mg/dL 0.57-1.25 eitf=850) GLUCOSE RANDOM (BEAKER) 172 mg/dL 70-105 (test ifjh=365) CALCIUM (BEAKER) (test 7.9 mg/dL 8.4-10.2 sbmc=369) EGFR (BEAKER) (test 33 mL/min/1.73 sq m ESTIMATED GFR IS NOT uxrr=7019) ACCURATE CREATININE CLEARANCE IN PREDICTING GLOMERULAR FILTRATION RATE. ESTIMATED GFR IS NOT APPLICABLE FOR DIALYSIS PATIENTS. LACTIC ACID, ARTERIAL, WHOLE [id number] 18:53:00 Test Item Value Reference Range Comments LACTATE BLOOD ARTERIAL (2) 0.9 mmol/L 0.5-2.2 Specimen slightly hemolyzed (BEAKER) (test nuaa=7334) Effective 08/02/2015: Units/Reference Range ChangeNew: 0.5-2.2 mmol/L Previous: 5 -20 mg/dLRAD, CHEST, 1 VIEW, NON [id number] 18:44:00Reason for exam:-> postop cardiacShould this be [...] MDReport Verified Date/Time: 2017 18:44:30 Reading Location: [facility] [id number] Consult Reading Room Electronically signed by: LISA LI M.D. on05/20/2017 06:44 PMCBC W/PLT COUNT & AUTO [id number] 18:38:00 Test Item Value Reference Range Comments WHITE BLOOD CELL COUNT (BEAKER) (test cskz=125) 8.7 K/ L 3.5-10.5 RED BLOOD CELL COUNT (BEAKER) (test qoxv=349) 3.33 M/ L 3.93-5.22 HEMOGLOBIN (BEAKER) (test lzam=349) 8.7 GM/DL 11.2-15.7 HEMATOCRIT (BEAKER) (test qndl=465) 27.9 % 34.1-44.9 MEAN CORPUSCULAR VOLUME (BEAKER) (test vddb=915) 83.8 fL 79.4-94.8 MEAN CORPUSCULAR HEMOGLOBIN (BEAKER) (test 26.1 pg 25.6-32.2 nhua=299) MEAN CORPUSCULAR HEMOGLOBIN CONC (BEAKER) (test 31.2 GM/DL 32.2-35.5 krqw=032) RED CELL DISTRIBUTION WIDTH (BEAKER) (test 14.9 % 11.7-14.4 ruzk=423) PLATELET COUNT (BEAKER) (test kzfw=613) 137 K/CU MM 150-450 MEAN PLATELET VOLUME (BEAKER) (test zzbi=860) 10.2 fL 9.4-12.3 NUCLEATED RED BLOOD CELLS (BEAKER) (test 0 /100 WBC 0-0 xlta=850) NEUTROPHILS RELATIVE PERCENT (BEAKER) (test 79 % yfvg=112) LYMPHOCYTES RELATIVE PERCENT (BEAKER) (test 12 % xyem=175) MONOCYTES RELATIVE PERCENT (BEAKER) (test 7 % invw=080) EOSINOPHILS RELATIVE PERCENT (BEAKER) (test 1 % oyqs=792) BASOPHILS RELATIVE PERCENT (BEAKER) (test 1 % gkfh=890) NEUTROPHILS ABSOLUTE COUNT (BEAKER) (test 6.83 K/ L 1.56-6.13 fayb=977) LYMPHOCYTES ABSOLUTE COUNT (BEAKER) (test 1.06 K/ L 1.18-3.74 gkft=691) MONOCYTES ABSOLUTE COUNT (BEAKER) (test 0.56 K/ L 0.24-0.36 gsfh=093) EOSINOPHILS ABSOLUTE COUNT (BEAKER) (test 0.12 K/ L 0.04-0.36 hupa=275) BASOPHILS ABSOLUTE COUNT (BEAKER) (test 0.04 K/ L 0.01-0.08 noxo=605) IMMATURE GRANULOCYTES-RELATIVE PERCENT (BEAKER) 1 % 0-1 (test plbw=2338) OXYGEN SATURATION, [id number] 18:36:00 Test Item Value Reference Range Comments O2 SATURATION (MEASURED) (BEAKER) (test kjtg=0345) 72.5 % From distal port of IJ central venous catheterSODIUM NA-STAT [id number] 18:30 :00 Test Item Value Reference Range Comments SODIUM (BEAKER) (test ftyk=860) 132 meq/L 135-148 HGB/HCT (H&H) - STAT [id number] 18:30:00 Test Item Value Reference Range Comments HEMOGLOBIN (BEAKER) (test xstj=310) 9.4 g/dL 12.0-15.0 HEMATOCRIT (BEAKER) (test qgfq=639) 28.0 % 36.0-45.0 GLUCOSE-STAT [id number] 18:30:00 Test Item Value Reference Range Comments GLUCOSE RANDOM (BEAKER) (test pmyp=111) 159 mg/dL 70-110 BLOOD GAS, [id number] 18:30:00 Test Item Value Reference Range Comments PH ARTERIAL (BEAKER) (test ivei=330) 7.34 7.35-7.45 PCO2 ARTERIAL (BEAKER) (test jdiw=480) 43 mmHg 35-45 PO2 ARTERIAL (BEAKER) (test hreg=622) 76 mmHg 80-90 O2 SATURATION ARTERIAL (BEAKER) (test ixvk=636) 94.9 % 96.0-97.0 HCO3 ARTERIAL (BEAKER) (test flrw=261) 23 mmol/L 21-29 BASE EXCESS ARTERIAL (BEAKER) (test ysof=599) -2.6 mmol/L -2.0-3.0 PATIENT TEMPERATURE (BEAKER) (test xeuz=0740) 36.4 C FIO2 (BEAKER) (test hkwr=2124) 60.0 % CALCIUM, [id number] 18:30:00 Test Item Value Reference Range Comments CALCIUM IONIZED (BEAKER) (test lotp=549) 0.94 mmol/L 1.12-1.27 PH, BLOOD (BEAKER) (test qqco=1310) 7.34 POTASSIUM-STAT [id number] 18:28:00 Test Item Value Reference Range Comments POTASSIUM (BEAKER) (test cwcg=452) 4.4 meq/L 3.6-5.5 THROMBOELASTOGRAPH ([id number] 18:11:00 Test Item Value Reference Range Comments TEG ACTIVATED CLOTTING TIME (BEAKER) (test 6.7 minutes 4.0-7.0 rley=0780) TEG FIBRINOGEN ACTIVITY (BEAKER) (test 66.6 degrees 61.0-73.0 bhyi=1510) TEG PLT. AGGREGATION (BEAKER) (test naot=5337) 62.4 MM 55.0-65.0 TEG FIBRINOLYSIS (BEAKER) (test bzwg=4211) 0.0 % 0.0-5.0 TGH ACTIVATED CLOTTING TIME (BEAKER) (test 6.7 minutes 4.0-7.0 xdqo=0869) [facility] FIBRINOGEN ACTIVITY ([facility]) (test 69.0 degrees 61.0-73.0 xcok=2881) TGH PLT. AGGREGATION ([facility]) (test mwec=8762) 62.8 MM 55.0-65.0 [facility]GH FIBRINOLYSIS ([facility]) (test akkb=9666) 0.0 % 0.0-5.0 [id number] 17:53:00 Test Item Value Reference Range Comments ACTIVATED CLOTTING TIME 103 sec TESTED AT [address] ([facility]) (test ionx=061) [place] [address] [id number] 17:53:00 Test Item Value Reference Range Comments ACTIVATED CLOTTING TIME 466 sec TESTED AT [address] ([facility]) (test lfeg=458) [place] [address] [id number] 17:53:00 Test Item Value Reference Range Comments ACTIVATED CLOTTING TIME 543 sec TESTED AT [address] ([facility]) (test jfak=832) [place] [address] [id number] 17:53:00 Test Item Value Reference Range Comments ACTIVATED CLOTTING TIME 549 sec TESTED AT [address] ([facility]) (test btjp=129) [place] [address] [id number] 17:53:00 Test Item Value Reference Range Comments ACTIVATED CLOTTING TIME 632 sec TESTED AT [address] ([facility]) (test dueo=374) [place] [address] [id number] 17:53:00 Test Item Value Reference Range Comments ACTIVATED CLOTTING TIME 494 sec TESTED AT [address] ([facility]) (test glkf=369) [place] [address] [id number] 17:53:00 Test Item Value Reference Range Comments ACTIVATED CLOTTING TIME 587 sec TESTED AT [address] ([facility]) (test vhsg=114) [place] [address] [id number] 17:53:00 Test Item Value Reference Range Comments ACTIVATED CLOTTING TIME 626 sec TESTED AT [address] ([facility]) (test akku=969) [place] [address] [id number] 17:52:00 Test Item Value Reference Range Comments ACTIVATED CLOTTING TIME 808 sec TESTED AT [facility] [address] (BEAKER) (test owwk=800) [place] [address] [id number] 16:54:00 Test Item Value Reference Range Comments PARTIAL THROMBOPLASTIN TIME (BEAKER) (test 40.2 seconds 22.5-36.0 aeku=017) [id number] 16:53:00 Test Item Value Reference Range Comments FIBRINOGEN LEVEL (BEAKER) (test tgho=340) 306 mg/dl 225-434 PROTHROMBIN [id number] 16:50:00 Test Item Value Reference Range Comments PROTIME (BEAKER) (test mcbb=339) 19.6 seconds 11.7-14.7 INR (BEAKER) (test xdyh=671) 1.7 <=5.9 RECOMMENDED COUMADIN/WARFARIN INR THERAPY RANGESSTANDARD DOSE: 2.0 - 3.0 Includes: PROPHYLAXIS forvenous thrombosis, systemic embolization; TREATMENT for venous thrombosis and/or pulmonary embolus.HIGH RISK: Target INR is 2.5-3.5 for patients with mechanical heart valves.PLATELET [id number] 16:45:00 Test Item Value Reference Range Comments PLATELET COUNT (BEAKER) (test krjs=850) 136 K/CU MM 150-450 POTASSIUM-STAT [id number] 16:15:00 Test Item Value Reference Range Comments POTASSIUM (BEAKER) (test mefd=439) 4.9 meq/L 3.6-5.5 BLOOD GAS, [id number] 16:15:00 Test Item Value Reference Range Comments PH ARTERIAL (BEAKER) (test cnjt=860) 7.39 7.35-7.45 PCO2 ARTERIAL (BEAKER) (test ccdg=307) 42 mmHg 35-45 PO2 ARTERIAL (BEAKER) (test hbkp=831) 201 mmHg 80-90 O2 SATURATION ARTERIAL (BEAKER) (test xrwf=764) 99.4 % 96.0-97.0 HCO3 ARTERIAL (BEAKER) (test qodh=258) 25 mmol/L 21-29 BASE EXCESS ARTERIAL (BEAKER) (test fkzd=928) -0.3 mmol/L -2.0-3.0 PATIENT TEMPERATURE (BEAKER) (test gzyo=3862) 36.3 C FIO2 (BEAKER) (test pdvk=0446) 100.0 % SODIUM NA-STAT [id number] 16:15:00 Test Item Value Reference Range Comments SODIUM (BEAKER) (test fnpw=722) 131 meq/L 135-148 GLUCOSE-STAT [id number] 16:15:00 Test Item Value Reference Range Comments GLUCOSE RANDOM (BEAKER) (test axfi=965) 198 mg/dL 70-110 HGB/HCT (H&H) - STAT [id number] 16:15:00 Test Item Value Reference Range Comments HEMOGLOBIN (BEAKER) (test ecnf=916) 7.5 g/dL 12.0-15.0 HEMATOCRIT (BEAKER) (test tsbh=135) 22.0 % 36.0-45.0 CALCIUM, [id number] 16:14:00 Test Item Value Reference Range Comments CALCIUM IONIZED (BEAKER) (test hdeg=502) 0.91 mmol/L 1.12-1.27 PH, BLOOD (BEAKER) (test lcbx=8888) 7.39 BLOOD GAS, [id number] 15:39:00 Test Item Value Reference Range Comments PH ARTERIAL (BEAKER) (test wktb=833) 7.44 7.35-7.45 PCO2 ARTERIAL (BEAKER) (test vzmg=301) 38 mmHg 35-45 PO2 ARTERIAL (BEAKER) (test aaoy=962) 298 mmHg 80-90 O2 SATURATION ARTERIAL (BEAKER) (test kccr=936) 99.7 % 96.0-97.0 HCO3 ARTERIAL (BEAKER) (test afno=872) 25 mmol/L 21-29 BASE EXCESS ARTERIAL (BEAKER) (test cpbk=503) 0.7 mmol/L -2.0-3.0 PATIENT TEMPERATURE (BEAKER) (test rqzq=9541) 36.2 C FIO2 (BEAKER) (test mfio=1064) 70.0 % SODIUM NA-STAT [id number] 15:39:00 Test Item Value Reference Range Comments SODIUM (BEAKER) (test gdew=479) 131 meq/L 135-148 GLUCOSE-STAT [id number] 15:39:00 Test Item Value Reference Range Comments GLUCOSE RANDOM (BEAKER) (test zziz=544) 186 mg/dL 70-110 HGB/HCT (H&H) - STAT [id number] 15:39:00 Test Item Value Reference Range Comments HEMOGLOBIN (BEAKER) (test ojis=863) 7.5 g/dL 12.0-15.0 HEMATOCRIT (BEAKER) (test xpvp=068) 22.0 % 36.0-45.0 POTASSIUM-STAT [id number] 15:38:00 Test Item Value Reference Range Comments POTASSIUM (BEAKER) (test dndr=349) 5.3 meq/L 3.6-5.5 BLOOD GAS, [id number] 15:24:00 Test Item Value Reference Range Comments PH ARTERIAL (BEAKER) (test uslm=791) 7.47 7.35-7.45 PCO2 ARTERIAL (BEAKER) (test wysa=171) 37 mmHg 35-45 PO2 ARTERIAL (BEAKER) (test ulzl=041) 334 mmHg 80-90 O2 SATURATION ARTERIAL (BEAKER) (test txio=760) 99.8 % 96.0-97.0 HCO3 ARTERIAL (BEAKER) (test sshy=726) 26 mmol/L 21-29 BASE EXCESS ARTERIAL (BEAKER) (test nqut=754) 2.2 mmol/L -2.0-3.0 PATIENT TEMPERATURE (BEAKER) (test vpsa=3577) 36.2 C FIO2 (BEAKER) (test latz=8574) 70.0 % SODIUM NA-STAT [id number] 15:24:00 Test Item Value Reference Range Comments SODIUM (BEAKER) (test lhwm=515) 130 meq/L 135-148 GLUCOSE-STAT [id number] 15:24:00 Test Item Value Reference Range Comments GLUCOSE RANDOM (BEAKER) (test xybn=432) 189 mg/dL 70-110 HGB/HCT (H&H) - STAT [id number] 15:24:00 Test Item Value Reference Range Comments HEMOGLOBIN (BEAKER) (test jymz=507) 6.7 g/dL 12.0-15.0 HEMATOCRIT (BEAKER) (test xyvz=364) 20.0 % 36.0-45.0 POTASSIUM-STAT [id number] 15:23:00 Test Item Value Reference Range Comments POTASSIUM (BEAKER) (test bmfy=803) 5.4 meq/L 3.6-5.5 BLOOD GAS, [id number] 15:07:00 Test Item Value Reference Range Comments PH ARTERIAL (BEAKER) (test juco=983) 7.43 7.35-7.45 PCO2 ARTERIAL (BEAKER) (test idrg=934) 41 mmHg 35-45 PO2 ARTERIAL (BEAKER) (test ebca=846) 365 mmHg 80-90 O2 SATURATION ARTERIAL (BEAKER) (test arqs=152) 99.8 % 96.0-97.0 HCO3 ARTERIAL (BEAKER) (test aoap=979) 27 mmol/L 21-29 BASE EXCESS ARTERIAL (BEAKER) (test vzpu=221) 1.9 mmol/L -2.0-3.0 PATIENT TEMPERATURE (BEAKER) (test mphh=4344) 35.8 C FIO2 (BEAKER) (test gmty=7828) 70.0 % SODIUM NA-STAT [id number] 15:07:00 Test Item Value Reference Range Comments SODIUM (BEAKER) (test aijz=668) 129 meq/L 135-148 GLUCOSE-STAT [id number] 15:07:00 Test Item Value Reference Range Comments GLUCOSE RANDOM (BEAKER) (test ugrb=860) 172 mg/dL 70-110 HGB/HCT (H&H) - STAT [id number] 15:07:00 Test Item Value Reference Range Comments HEMOGLOBIN (BEAKER) (test yiar=454) 7.1 g/dL 12.0-15.0 HEMATOCRIT (BEAKER) (test gryw=535) 21.0 % 36.0-45.0 POTASSIUM-STAT [id number] 15:04:00 Test Item Value Reference Range Comments POTASSIUM (BEAKER) (test slla=755) 5.0 meq/L 3.6-5.5 BLOOD GAS, [id number] 14:21:00 Test Item Value Reference Range Comments PH ARTERIAL (BEAKER) (test nlmo=643) 7.43 7.35-7.45 PCO2 ARTERIAL (BEAKER) (test djnz=568) 38 mmHg 35-45 PO2 ARTERIAL (BEAKER) (test jymz=403) 360 mmHg 80-90 O2 SATURATION ARTERIAL (BEAKER) (test wzxu=780) 99.8 % 96.0-97.0 HCO3 ARTERIAL (BEAKER) (test rgie=554) 27 mmol/L 21-29 BASE EXCESS ARTERIAL (BEAKER) (test ohzm=480) 0.3 mmol/L -2.0-3.0 PATIENT TEMPERATURE (BEAKER) (test zvzn=5885) 28.9 C FIO2 (BEAKER) (test htxo=7442) 70.0 % SODIUM NA-STAT [id number] 14:21:00 Test Item Value Reference Range Comments SODIUM (BEAKER) (test pvzb=312) 133 meq/L 135-148 GLUCOSE-STAT [id number] 14:21:00 Test Item Value Reference Range Comments GLUCOSE RANDOM (BEAKER) (test jijc=117) 160 mg/dL 70-110 HGB/HCT (H&H) - STAT [id number] 14:21:00 Test Item Value Reference Range Comments HEMOGLOBIN (BEAKER) (test yxkm=695) 7.5 g/dL 12.0-15.0 HEMATOCRIT (BEAKER) (test abop=325) 22.0 % 36.0-45.0 POTASSIUM-STAT [id number] 14:20:00 Test Item Value Reference Range Comments POTASSIUM (BEAKER) (test vqqm=373) 4.7 meq/L 3.6-5.5 BLOOD GAS, [id number] 13:58:00 Test Item Value Reference Range Comments PH ARTERIAL (BEAKER) (test hraj=340) 7.43 7.35-7.45 PCO2 ARTERIAL (BEAKER) (test rhnt=880) 37 mmHg 35-45 PO2 ARTERIAL (BEAKER) (test nhcu=697) 448 mmHg 80-90 O2 SATURATION ARTERIAL (BEAKER) (test mala=647) 99.9 % 96.0-97.0 HCO3 ARTERIAL (BEAKER) (test rvpi=305) 26 mmol/L 21-29 BASE EXCESS ARTERIAL (BEAKER) (test skgl=069) -0.1 mmol/L -2.0-3.0 PATIENT TEMPERATURE (BEAKER) (test fzfw=5303) 29.2 C FIO2 (BEAKER) (test dgff=6616) 80.0 % SODIUM NA-STAT [id number] 13:58:00 Test Item Value Reference Range Comments SODIUM (BEAKER) (test uetm=342) 132 meq/L 135-148 GLUCOSE-STAT [id number] 13:58:00 Test Item Value Reference Range Comments GLUCOSE RANDOM (BEAKER) (test ejji=400) 166 mg/dL 70-110 HGB/HCT (H&H) - STAT [id number] 13:58:00 Test Item Value Reference Range Comments HEMOGLOBIN (BEAKER) (test picg=508) 7.5 g/dL 12.0-15.0 HEMATOCRIT (BEAKER) (test xxmn=036) 22.0 % 36.0-45.0 POTASSIUM-STAT [id number] 13:57:00 Test Item Value Reference Range Comments POTASSIUM (BEAKER) (test rjej=238) 4.7 meq/L 3.6-5.5 BLOOD GAS, [id number] 13:35:00 Test Item Value Reference Range Comments PH ARTERIAL (BEAKER) (test eqyw=604) 7.51 7.35-7.45 PCO2 ARTERIAL (BEAKER) (test zugv=806) 33 mmHg 35-45 PO2 ARTERIAL (BEAKER) (test jkgg=255) 453 mmHg 80-90 O2 SATURATION ARTERIAL (BEAKER) (test ogku=741) 99.9 % 96.0-97.0 HCO3 ARTERIAL (BEAKER) (test oprf=190) 28 mmol/L 21-29 BASE EXCESS ARTERIAL (BEAKER) (test ewhk=936) 2.7 mmol/L -2.0-3.0 PATIENT TEMPERATURE (BEAKER) (test vmcx=6735) 29.2 C FIO2 (BEAKER) (test lzmc=4060) 80.0 % GLUCOSE-STAT [id number] 13:35:00 Test Item Value Reference Range Comments GLUCOSE RANDOM (BEAKER) (test fzfi=431) 130 mg/dL 70-110 HGB/HCT (H&H) - STAT [id number] 13:35:00 Test Item Value Reference Range Comments HEMOGLOBIN (BEAKER) (test pmos=875) 6.7 g/dL 12.0-15.0 HEMATOCRIT (BEAKER) (test boft=754) 20.0 % 36.0-45.0 SODIUM NA-STAT [id number] 13:35:00 Test Item Value Reference Range Comments SODIUM (BEAKER) (test czll=974) 133 meq/L 135-148 POTASSIUM-STAT [id number] 13:34:00 Test Item Value Reference Range Comments POTASSIUM (BEAKER) (test iqny=842) 4.2 meq/L 3.6-5.5 BLOOD GAS, [id number] 13:16:00 Test Item Value Reference Range Comments PH ARTERIAL (BEAKER) (test vvje=251) 7.42 7.35-7.45 PCO2 ARTERIAL (BEAKER) (test wovh=771) 34 mmHg 35-45 PO2 ARTERIAL (BEAKER) (test fdyl=274) 375 mmHg 80-90 O2 SATURATION ARTERIAL (BEAKER) (test ntau=725) 99.8 % 96.0-97.0 HCO3 ARTERIAL (BEAKER) (test tmcr=360) 23 mmol/L 21-29 BASE EXCESS ARTERIAL (BEAKER) (test osoj=879) -2.5 mmol/L -2.0-3.0 PATIENT TEMPERATURE (BEAKER) (test nfor=0521) 31.5 C FIO2 (BEAKER) (test htjz=3359) 80.0 % SODIUM NA-STAT [id number] 13:16:00 Test Item Value Reference Range Comments SODIUM (BEAKER) (test vwgy=563) 133 meq/L 135-148 HGB/HCT (H&H) - STAT [id number] 13:16:00 Test Item Value Reference Range Comments HEMOGLOBIN (BEAKER) (test ldaf=819) 6.3 g/dL 12.0-15.0 HEMATOCRIT (BEAKER) (test yjyq=151) 19.0 % 36.0-45.0 CALCIUM, [id number] 13:15:00 Test Item Value Reference Range Comments CALCIUM IONIZED (BEAKER) (test zwtt=351) 0.98 mmol/L 1.12-1.27 PH, BLOOD (BEAKER) (test aqrw=9442) 7.34 BLOOD GAS, [id number] 13:15:00 Test Item Value Reference Range Comments PH VENOUS (BEAKER) (test fqeq=013) 7.39 7.32-7.42 PCO2 VENOUS (BEAKER) (test tequ=597) 38 mmHg 41-51 PO2 VENOUS (BEAKER) (test snis=547) 43 mmHg 25-40 O2 SATURATION VENOUS (BEAKER) (test huix=909) 90.0 % 40.0-70.0 HCO3 VENOUS (BEAKER) (test jusw=784) 24 mmol/L 21-29 BASE EXCESS VENOUS (BEAKER) (test iooe=076) -2.1 mmol/L -2.0-3.0 PATIENT TEMPERATURE (BEAKER) (test vxqq=0887) 31.5 C FIO2 (BEAKER) (test ihte=2163) 80.0 % GLUCOSE-STAT [id number] 13:14:00 Test Item Value Reference Range Comments GLUCOSE RANDOM (BEAKER) (test sxmp=396) 92 mg/dL 70-110 POTASSIUM-STAT [id number] 13:14:00 Test Item Value Reference Range Comments POTASSIUM (BEAKER) (test scxt=830) 3.9 meq/L 3.6-5.5 BLOOD GAS, [id number] 10:54:00 Test Item Value Reference Range Comments PH ARTERIAL (BEAKER) (test kylo=544) 7.41 7.35-7.45 PCO2 ARTERIAL (BEAKER) (test zfal=476) 39 mmHg 35-45 PO2 ARTERIAL (BEAKER) (test vppd=086) 254 mmHg 80-90 O2 SATURATION ARTERIAL (BEAKER) (test lcwq=946) 99.6 % 96.0-97.0 HCO3 ARTERIAL (BEAKER) (test olln=569) 25 mmol/L 21-29 BASE EXCESS ARTERIAL (BEAKER) (test kzdc=701) -0.3 mmol/L -2.0-3.0 PATIENT TEMPERATURE (BEAKER) (test pcmp=9528) 35.4 C FIO2 (BEAKER) (test gkra=3603) 100.0 % HGB/HCT (H&H) - STAT [id number] 10:54:00 Test Item Value Reference Range Comments HEMOGLOBIN (BEAKER) (test fgje=152) 9.3 g/dL 12.0-15.0 HEMATOCRIT (BEAKER) (test jppm=092) 27.0 % 36.0-45.0 SODIUM NA-STAT [id number] 10:54:00 Test Item Value Reference Range Comments SODIUM (BEAKER) (test yvan=239) 132 meq/L 135-148 GLUCOSE-STAT [id number] 10:52:00 Test Item Value Reference Range Comments GLUCOSE RANDOM (BEAKER) (test dvza=620) 94 mg/dL 70-110 POTASSIUM-STAT [id number] 10:52:00 Test Item Value Reference Range Comments POTASSIUM (BEAKER) (test qhyq=486) 4.0 meq/L 3.6-5.5 HEMOGLOBIN [id number] 09:50:00 Test Item Value Reference Range Comments HEMOGLOBIN A1C (BEAKER) (test lyhl=638) 10.6 % 4.3-6.1 PLATELET AGGREGATION: FUNCTION [id number] 08:27:00 Test Item Value Reference Range Comments WEAK ADP RESULT(BEAKER) (test 63 % 60-91 xjig=4602) PLATELET FUNCTION SCREEN 60-100% indicates normal INTERP (BEAKER) (test platelet function cvdh=7449) [id number] (BEAKER) Toshia Post MD (electronic (test rexc=4275) signature) PLATELET COUNT AGG (BEAKER) 198 K/CU MM 150-450 (test ywms=4730) for patients on clopidogrel in past two weeksPOCT-GLUCOSE [id number] 08:11: 00 Test Item Value Reference Range Comments POC-GLUCOSE METER (BEAKER) 116 mg/dL 70-110 TESTED AT [facility] [address] (test msie=5042) [facility] [address] [id number] 07:10:00 Test Item Value Reference Range Comments PHOSPHORUS (BEAKER) (test ulum=537) 4.5 mg/dL 2.3-4.7 [id number] 07:10:00 Test Item Value Reference Range Comments MAGNESIUM (BEAKER) (test yjkt=251) 2.1 mg/dL 1.6-2.6 BASIC METABOLIC [id number] 07:10:00 Test Item Value Reference Range Comments SODIUM (BEAKER) (test 135 meq/L 136-145 ruuq=004) POTASSIUM (BEAKER) (test 4.4 meq/L 3.5-5.1 rojf=687) CHLORIDE (BEAKER) (test 106 meq/L 98-107 bogj=515) CO2 (BEAKER) (test 23 meq/L 22-29 qslz=787) BLOOD UREA NITROGEN 40 mg/dL 7-21 (BEAKER) (test dqcf=157) CREATININE (BEAKER) (test 1.67 mg/dL 0.57-1.25 ndjj=653) GLUCOSE RANDOM (BEAKER) 107 mg/dL 70-105 (test pdvf=196) CALCIUM (BEAKER) (test 8.3 mg/dL 8.4-10.2 cvkl=319) EGFR (BEAKER) (test 31 mL/min/1.73 sq m ESTIMATED GFR IS NOT mgup=8452) ACCURATE CREATININE CLEARANCE IN PREDICTING GLOMERULAR FILTRATION RATE. ESTIMATED GFR IS NOT APPLICABLE FOR DIALYSIS PATIENTS. B-TYPE NATRIURETIC FACTOR (BNP)2017-05-20 06:56:00 Test Item Value Reference Range Comments B-TYPE NATRIURETIC PEPTIDE (BEAKER) (test 552 pg/mL 0-100 zemv=587) CBC W/PLT COUNT & AUTO [id number] 06:46:00 Test Item Value Reference Range Comments WHITE BLOOD CELL COUNT (BEAKER) (test cjry=908) 6.2 K/ L 3.5-10.5 RED BLOOD CELL COUNT (BEAKER) (test iwvf=784) 3.56 M/ L 3.93-5.22 HEMOGLOBIN (BEAKER) (test crch=918) 9.1 GM/DL 11.2-15.7 HEMATOCRIT (BEAKER) (test tltq=777) 29.5 % 34.1-44.9 MEAN CORPUSCULAR VOLUME (BEAKER) (test jrle=273) 82.9 fL 79.4-94.8 MEAN CORPUSCULAR HEMOGLOBIN (BEAKER) (test 25.6 pg 25.6-32.2 arpv=221) MEAN CORPUSCULAR HEMOGLOBIN CONC (BEAKER) (test 30.8 GM/DL 32.2-35.5 uaxr=995) RED CELL DISTRIBUTION WIDTH (BEAKER) (test 14.4 % 11.7-14.4 fikj=605) PLATELET COUNT (BEAKER) (test iymg=215) 222 K/CU MM 150-450 MEAN PLATELET VOLUME (BEAKER) (test zuja=449) 10.5 fL 9.4-12.3 NUCLEATED RED BLOOD CELLS (BEAKER) (test 0 /100 WBC 0-0 xpsz=524) NEUTROPHILS RELATIVE PERCENT (BEAKER) (test 47 % metp=296) LYMPHOCYTES RELATIVE PERCENT (BEAKER) (test 39 % yasl=842) MONOCYTES RELATIVE PERCENT (BEAKER) (test 8 % kwgu=553) EOSINOPHILS RELATIVE PERCENT (BEAKER) (test 5 % wukx=649) BASOPHILS RELATIVE PERCENT (BEAKER) (test 1 % nbwf=344) NEUTROPHILS ABSOLUTE COUNT (BEAKER) (test 2.90 K/ L 1.56-6.13 epce=662) LYMPHOCYTES ABSOLUTE COUNT (BEAKER) (test 2.37 K/ L 1.18-3.74 olht=804) MONOCYTES ABSOLUTE COUNT (BEAKER) (test 0.49 K/ L 0.24-0.36 gkql=238) EOSINOPHILS ABSOLUTE COUNT (BEAKER) (test 0.30 K/ L 0.04-0.36 hftu=432) BASOPHILS ABSOLUTE COUNT (BEAKER) (test 0.08 K/ L 0.01-0.08 pvbj=598) IMMATURE GRANULOCYTES-RELATIVE PERCENT (BEAKER) 0 % 0-1 (test maaf=9914) CALCIUM, [id number] 06:40:00 Test Item Value Reference Range Comments CALCIUM IONIZED (BEAKER) (test qqog=785) 1.06 mmol/L 1.12-1.27 PH, BLOOD (BEAKER) (test huas=3056) 7.39 POCT-GLUCOSE [id number] 23:22:00 Test Item Value Reference Range Comments POC-GLUCOSE METER (BEAKER) 165 mg/dL 70-110 TESTED AT [facility] [address] (test xydy=6535) [facility] [address] URINE PROTEIN ELECTROPHORESIS, [id number] 18:02:00 Test Item Value Reference Range Comments PROTEIN, URINE (BEAKER) (test 305 mg/dL 0-14 zfgc=2832) ALBUMIN URINE ELP (BEAKER) 70.9 % (test entc=3477) GAMMA GLOBULIN URINE (BEAKER) 29.1 % (test hcaw=2881) UPEP, ID-438 (BEAKER) (test No monoclonal bands detected. mjul=3052) [id number] (BEAKER) Rocio Galindo MD (test praa=8043) (electronic signature) PROTEIN ELECTROPHORESIS, [id number] 17:57:00 Test Item Value Reference Range Comments ALBUMIN FRACTION (BEAKER) 2.5 g/dL 3.5-5.5 (test tnzf=914) ALPHA 1 FRACTION (BEAKER) 0.3 g/dL 0.2-0.4 (test dljd=854) ALPHA 2 FRACTION (BEAKER) 0.9 g/dL 0.5-0.9 (test bdva=645) BETA FRACTION (BEAKER) (test 0.8 g/dL 0.6-1.1 kyub=780) GAMMA GLOBULIN FRACTION 1.0 g/dL 0.7-1.7 (BEAKER) (test fevj=497) INTERPRETATION-119 (BEAKER) Decreased albumin with (test wnli=5252) concurrent relative increases in all globulin fractions. No monoclonal bands detected. [id number] (BEAKER) Rocio Galindo MD (test bgit=5804) (electronic signature) PROTEIN TOTAL SERUM, SPEP 5.5 gm/dL 6.0-8.3 (BEAKER) (test nfkn=8050) POCT-GLUCOSE [id number] 17:15:00 Test Item Value Reference Range Comments POC-GLUCOSE METER (BEAKER) 209 mg/dL 70-110 TESTED AT [facility] [address] (test wgyn=1711) [facility] [address] BLOOD GAS, [id number] 15:54:00 Test Item Value Reference Range Comments PH ARTERIAL (BEAKER) (test jjvj=273) 7.45 7.35-7.45 PCO2 ARTERIAL (BEAKER) (test hbsh=419) 38 mmHg 35-45 PO2 ARTERIAL (BEAKER) (test zsyo=037) 69 mmHg 80-90 O2 SATURATION ARTERIAL (BEAKER) (test rzqk=144) 94.5 % 96.0-97.0 HCO3 ARTERIAL (BEAKER) (test klhd=250) 25 mmol/L 21-29 BASE EXCESS ARTERIAL (BEAKER) (test gjzd=295) 1.3 mmol/L -2.0-3.0 PATIENT TEMPERATURE (BEAKER) (test xnna=8131) 37.0 C FIO2 (BEAKER) (test briz=2766) 36.0 % RAD, CHEST, 1 VIEW, NON [id number] 14:07:00Reason for exam:->SOB, hypoxemiaShould this be performed [...] Eder Cespedes Verified Date/Time: 2017 14:07:07 Reading Location:[facility] B1 [id number] Consult Reading Room POCT- GLUCOSE [id number] 11:26:00 Test Item Value Reference Range Comments POC-GLUCOSE METER (BEAKER) 262 mg/dL 70-110 TESTED AT [place] [id number] [facility] (test fzop=8863) [facility] [address] POCT-GLUCOSE [id number] 07:37:00 Test Item Value Reference Range Comments POC-GLUCOSE METER (BEAKER) 170 mg/dL 70-110 TESTED AT [address] (test ldvp=5182) [facility] [address] CALCIUM, [id number] 06:06:00 Test Item Value Reference Range Comments CALCIUM IONIZED (BEAKER) (test brfy=372) 1.05 mmol/L 1.12-1.27 PH, BLOOD (BEAKER) (test jtql=7878) 7.41 [id number] 05:38:00 Test Item Value Reference Range Comments PHOSPHORUS (BEAKER) (test sfhc=559) 3.9 mg/dL 2.3-4.7 [id number] 05:38:00 Test Item Value Reference Range Comments MAGNESIUM (BEAKER) (test qrxt=457) 2.2 mg/dL 1.6-2.6 BASIC METABOLIC [id number] 05:38:00 Test Item Value Reference Range Comments SODIUM (BEAKER) (test 135 meq/L 136-145 nlgk=684) POTASSIUM (BEAKER) (test 4.5 meq/L 3.5-5.1 qwfl=849) CHLORIDE (BEAKER) (test 105 meq/L 98-107 kxbu=696) CO2 (BEAKER) (test 24 meq/L 22-29 bfcd=816) BLOOD UREA NITROGEN 41 mg/dL 7-21 (BEAKER) (test gqct=268) CREATININE (BEAKER) (test 1.74 mg/dL 0.57-1.25 lcle=872) GLUCOSE RANDOM (BEAKER) 174 mg/dL 70-105 (test hmqo=843) CALCIUM (BEAKER) (test 8.4 mg/dL 8.4-10.2 htsi=940) EGFR (BEAKER) (test 30 mL/min/1.73 sq m ESTIMATED GFR IS NOT ikhd=9664) ACCURATE CREATININE CLEARANCE IN PREDICTING GLOMERULAR FILTRATION RATE. ESTIMATED GFR IS NOT APPLICABLE FOR DIALYSIS PATIENTS. CBC W/PLT COUNT & AUTO [id number] 05:09:00 Test Item Value Reference Range Comments WHITE BLOOD CELL COUNT (BEAKER) (test jioj=992) 8.5 K/ L 3.5-10.5 RED BLOOD CELL COUNT (BEAKER) (test irvm=526) 3.54 M/ L 3.93-5.22 HEMOGLOBIN (BEAKER) (test glow=380) 9.1 GM/DL 11.2-15.7 HEMATOCRIT (BEAKER) (test wcxs=488) 29.1 % 34.1-44.9 MEAN CORPUSCULAR VOLUME (BEAKER) (test rwkl=026) 82.2 fL 79.4-94.8 MEAN CORPUSCULAR HEMOGLOBIN (BEAKER) (test 25.7 pg 25.6-32.2 wepl=339) MEAN CORPUSCULAR HEMOGLOBIN CONC (BEAKER) (test 31.3 GM/DL 32.2-35.5 lrop=395) RED CELL DISTRIBUTION WIDTH (BEAKER) (test 14.5 % 11.7-14.4 sszp=343) PLATELET COUNT (BEAKER) (test nkae=386) 201 K/CU MM 150-450 MEAN PLATELET VOLUME (BEAKER) (test xqts=511) 10.7 fL 9.4-12.3 NUCLEATED RED BLOOD CELLS (BEAKER) (test 0 /100 WBC 0-0 efqn=925) NEUTROPHILS RELATIVE PERCENT (BEAKER) (test 56 % ckul=699) LYMPHOCYTES RELATIVE PERCENT (BEAKER) (test 32 % hvps=336) MONOCYTES RELATIVE PERCENT (BEAKER) (test 7 % xkqs=090) EOSINOPHILS RELATIVE PERCENT (BEAKER) (test 4 % jlwg=657) BASOPHILS RELATIVE PERCENT (BEAKER) (test 1 % aleh=427) NEUTROPHILS ABSOLUTE COUNT (BEAKER) (test 4.80 K/ L 1.56-6.13 gvqr=700) LYMPHOCYTES ABSOLUTE COUNT (BEAKER) (test 2.73 K/ L 1.18-3.74 pbqg=855) MONOCYTES ABSOLUTE COUNT (BEAKER) (test 0.62 K/ L 0.24-0.36 nfvj=617) EOSINOPHILS ABSOLUTE COUNT (BEAKER) (test 0.30 K/ L 0.04-0.36 kffl=429) BASOPHILS ABSOLUTE COUNT (BEAKER) (test 0.06 K/ L 0.01-0.08 obtr=413) IMMATURE GRANULOCYTES-RELATIVE PERCENT (BEAKER) 0 % 0-1 (test bnuf=6274) POCT-GLUCOSE [id number] 22:08:00 Test Item Value Reference Range Comments POC-GLUCOSE METER (BEAKER) 263 mg/dL 70-110 TESTED AT [address] (test fkcq=6710) [place] [id number] POCT-GLUCOSE [id number] 17:20:00 Test Item Value Reference Range Comments POC-GLUCOSE METER (BEAKER) 233 mg/dL 70-110 TESTED AT [address] (test rlzn=6902) [place] [id number] POCT-GLUCOSE [id number] 08:28:00 Test Item Value Reference Range Comments POC-GLUCOSE METER (BEAKER) 154 mg/dL 70-110 TESTED AT [address] (test ojjs=3727) [place] [id number] BASIC METABOLIC [id number] 06:41:00 Test Item Value Reference Range Comments SODIUM (BEAKER) (test 135 meq/L 136-145 feco=428) POTASSIUM (BEAKER) (test 4.6 meq/L 3.5-5.1 ypmj=434) CHLORIDE (BEAKER) (test 104 meq/L 98-107 wppr=928) CO2 (BEAKER) (test 23 meq/L 22-29 pzzy=615) BLOOD UREA NITROGEN 39 mg/dL 7-21 (BEAKER) (test slbd=836) CREATININE (BEAKER) (test 1.77 mg/dL 0.57-1.25 zrsb=214) GLUCOSE RANDOM (BEAKER) 173 mg/dL 70-105 (test khzd=009) CALCIUM (BEAKER) (test 8.6 mg/dL 8.4-10.2 poqf=888) EGFR (BEAKER) (test 29 mL/min/1.73 sq m ESTIMATED GFR IS NOT iwro=1587) ACCURATE CREATININE CLEARANCE IN PREDICTING GLOMERULAR FILTRATION RATE. ESTIMATED GFR IS NOT APPLICABLE FOR DIALYSIS PATIENTS. [id number] 06:35:00 Test Item Value Reference Range Comments PHOSPHORUS (BEAKER) (test brph=445) 4.1 mg/dL 2.3-4.7 [id number] 06:35:00 Test Item Value Reference Range Comments MAGNESIUM (BEAKER) (test clcv=858) 2.1 mg/dL 1.6-2.6 CALCIUM, [id number] 06:22:00 Test Item Value Reference Range Comments CALCIUM IONIZED (BEAKER) (test fiaa=022) 1.10 mmol/L 1.12-1.27 PH, BLOOD (BEAKER) (test wuim=9159) 7.38 CBC W/PLT COUNT & AUTO [id number] 06:04:00 Test Item Value Reference Range Comments WHITE BLOOD CELL COUNT (BEAKER) (test ovau=474) 9.3 K/ L 3.5-10.5 RED BLOOD CELL COUNT (BEAKER) (test ocki=490) 4.15 M/ L 3.93-5.22 HEMOGLOBIN (BEAKER) (test txfh=515) 10.6 GM/DL 11.2-15.7 HEMATOCRIT (BEAKER) (test zmnf=036) 34.2 % 34.1-44.9 MEAN CORPUSCULAR VOLUME (BEAKER) (test moxm=031) 82.4 fL 79.4-94.8 MEAN CORPUSCULAR HEMOGLOBIN (BEAKER) (test 25.5 pg 25.6-32.2 oedi=982) MEAN CORPUSCULAR HEMOGLOBIN CONC (BEAKER) (test 31.0 GM/DL 32.2-35.5 actf=454) RED CELL DISTRIBUTION WIDTH (BEAKER) (test 14.6 % 11.7-14.4 aoel=907) PLATELET COUNT (BEAKER) (test xhwc=028) 183 K/CU MM 150-450 MEAN PLATELET VOLUME (BEAKER) (test lsmm=132) 11.0 fL 9.4-12.3 NUCLEATED RED BLOOD CELLS (BEAKER) (test 0 /100 WBC 0-0 nmoz=562) NEUTROPHILS RELATIVE PERCENT (BEAKER) (test 66 % swcc=558) LYMPHOCYTES RELATIVE PERCENT (BEAKER) (test 24 % jsdk=155) MONOCYTES RELATIVE PERCENT (BEAKER) (test 7 % bvsf=469) EOSINOPHILS RELATIVE PERCENT (BEAKER) (test 3 % dotm=919) BASOPHILS RELATIVE PERCENT (BEAKER) (test 1 % csvb=051) NEUTROPHILS ABSOLUTE COUNT (BEAKER) (test 6.15 K/ L 1.56-6.13 hyfk=484) LYMPHOCYTES ABSOLUTE COUNT (BEAKER) (test 2.20 K/ L 1.18-3.74 rouu=457) MONOCYTES ABSOLUTE COUNT (BEAKER) (test 0.62 K/ L 0.24-0.36 ijvi=757) EOSINOPHILS ABSOLUTE COUNT (BEAKER) (test 0.24 K/ L 0.04-0.36 etmy=802) BASOPHILS ABSOLUTE COUNT (BEAKER) (test 0.06 K/ L 0.01-0.08 fibo=420) IMMATURE GRANULOCYTES-RELATIVE PERCENT (BEAKER) 0 % 0-1 (test umzi=2490) POCT-GLUCOSE [id number] 03:44:00 Test Item Value Reference Range Comments POC-GLUCOSE METER (BEAKER) 220 mg/dL 70-110 TESTED AT [address] (test afhi=2592) [place] [address] POCT-GLUCOSE [id number] 18:27:00 Test Item Value Reference Range Comments POC-GLUCOSE METER (BEAKER) 256 mg/dL 70-110 TESTED AT [address] (test divy=5577) [place] [address] POCT-GLUCOSE [id number] 15:45:00 Test Item Value Reference Range Comments POC-GLUCOSE METER (BEAKER) 278 mg/dL 70-110 TESTED AT [address] (test wviz=1319) [place] [address] POCT-GLUCOSE [id number] 13:22:00 Test Item Value Reference Range Comments POC-GLUCOSE METER (BEAKER) 278 mg/dL 70-110 TESTED AT [address] (test vbmf=0340) [place] [address] PLATELET AGGREGATION: FUNCTION [id number] 13:18:00 Test Item Value Reference Range Comments WEAK ADP RESULT(BEAKER) (test 66 % 60-91 umxk=4506) PLATELET FUNCTION SCREEN 60-100% indicates normal INTERP (BEAKER) (test platelet function avnu=4570) [id number] (BEAKER) Rigoberto Duenas MD (electronic (test gtda=3297) signature) PLATELET COUNT AGG (BEAKER) 204 K/CU MM 150-450 (test bzwu=4679) POCT-GLUCOSE [id number] 08:27:00 Test Item Value Reference Range Comments POC-GLUCOSE METER (BEAKER) 189 mg/dL 70-110 TESTED AT [facility] [address] [facility] (test pkyf=0912) [facility] [address] CALCIUM, [id number] 06:12:00 Test Item Value Reference Range Comments CALCIUM IONIZED (BEAKER) (test oili=210) 1.07 mmol/L 1.12-1.27 PH, BLOOD (BEAKER) (test atdn=2804) 7.36 [id number] 05:43:00 Test Item Value Reference Range Comments PHOSPHORUS (BEAKER) (test vcjq=296) 3.6 mg/dL 2.3-4.7 [id number] 05:43:00 Test Item Value Reference Range Comments MAGNESIUM (BEAKER) (test qadl=811) 2.1 mg/dL 1.6-2.6 BASIC METABOLIC [id number] 05:43:00 Test Item Value Reference Range Comments SODIUM (BEAKER) (test 137 meq/L 136-145 gomk=538) POTASSIUM (BEAKER) (test 4.7 meq/L 3.5-5.1 qzcx=060) CHLORIDE (BEAKER) (test 107 meq/L 98-107 egxv=559) CO2 (BEAKER) (test 24 meq/L 22-29 sjcl=894) BLOOD UREA NITROGEN 38 mg/dL 7-21 (BEAKER) (test bppy=326) CREATININE (BEAKER) (test 1.72 mg/dL 0.57-1.25 hsuj=121) GLUCOSE RANDOM (BEAKER) 198 mg/dL 70-105 (test cclc=272) CALCIUM (BEAKER) (test 8.3 mg/dL 8.4-10.2 mxio=065) EGFR (BEAKER) (test 30 mL/min/1.73 sq m ESTIMATED GFR IS NOT ufen=9688) ACCURATE CREATININE CLEARANCE IN PREDICTING GLOMERULAR FILTRATION RATE. ESTIMATED GFR IS NOT APPLICABLE FOR DIALYSIS PATIENTS. CBC W/PLT COUNT & AUTO [id number] 05:05:00 Test Item Value Reference Range Comments WHITE BLOOD CELL COUNT (BEAKER) (test uhtv=263) 8.6 K/ L 3.5-10.5 RED BLOOD CELL COUNT (BEAKER) (test cpfh=859) 4.20 M/ L 3.93-5.22 HEMOGLOBIN (BEAKER) (test wxvt=763) 10.7 GM/DL 11.2-15.7 HEMATOCRIT (BEAKER) (test qedx=332) 34.7 % 34.1-44.9 MEAN CORPUSCULAR VOLUME (BEAKER) (test fbrp=791) 82.6 fL 79.4-94.8 MEAN CORPUSCULAR HEMOGLOBIN (BEAKER) (test 25.5 pg 25.6-32.2 lfmo=262) MEAN CORPUSCULAR HEMOGLOBIN CONC (BEAKER) (test 30.8 GM/DL 32.2-35.5 pjjk=117) RED CELL DISTRIBUTION WIDTH (BEAKER) (test 14.7 % 11.7-14.4 avei=557) PLATELET COUNT (BEAKER) (test fvjp=984) 198 K/CU MM 150-450 MEAN PLATELET VOLUME (BEAKER) (test lcjx=688) 11.1 fL 9.4-12.3 NUCLEATED RED BLOOD CELLS (BEAKER) (test 0 /100 WBC 0-0 dauf=785) NEUTROPHILS RELATIVE PERCENT (BEAKER) (test 63 % ndhu=575) LYMPHOCYTES RELATIVE PERCENT (BEAKER) (test 28 % nwqx=521) MONOCYTES RELATIVE PERCENT (BEAKER) (test 6 % fknp=732) EOSINOPHILS RELATIVE PERCENT (BEAKER) (test 3 % irgr=279) BASOPHILS RELATIVE PERCENT (BEAKER) (test 1 % lria=542) NEUTROPHILS ABSOLUTE COUNT (BEAKER) (test 5.41 K/ L 1.56-6.13 zakn=717) LYMPHOCYTES ABSOLUTE COUNT (BEAKER) (test 2.37 K/ L 1.18-3.74 bsuv=394) MONOCYTES ABSOLUTE COUNT (BEAKER) (test 0.50 K/ L 0.24-0.36 dcuc=489) EOSINOPHILS ABSOLUTE COUNT (BEAKER) (test 0.27 K/ L 0.04-0.36 mmup=421) BASOPHILS ABSOLUTE COUNT (BEAKER) (test 0.06 K/ L 0.01-0.08 enmr=579) IMMATURE GRANULOCYTES-RELATIVE PERCENT (BEAKER) 0 % 0-1 (test nfhd=2585) POCT-GLUCOSE [id number] 21:32:00 Test Item Value Reference Range Comments POC-GLUCOSE METER (BEAKER) 176 mg/dL 70-110 TESTED AT [address] (test mulp=3856) [place] [address] POCT-GLUCOSE [id number] 20:27:00 Test Item Value Reference Range Comments POC-GLUCOSE METER (BEAKER) 161 mg/dL 70-110 TESTED AT [address] (test evfw=2702) [place] [address] POCT-GLUCOSE [id number] 18:23:00 Test Item Value Reference Range Comments POC-GLUCOSE METER (BEAKER) 185 mg/dL 70-110 TESTED AT [address] (test fikz=9323) [place] [address] POCT-GLUCOSE [id number] 13:26:00 Test Item Value Reference Range Comments POC-GLUCOSE METER (BEAKER) 282 mg/dL 70-110 TESTED AT [address] (test ovec=3936) [place] [address] URINE [id number] 10:12:00 Test Item Value Reference Range Comments CULTURE (BEAKER) (test wgvv=2570) >100,000 col/mL skin todd POCT-GLUCOSE [id number] 09:01:00 Test Item Value Reference Range Comments POC-GLUCOSE METER (BEAKER) 268 mg/dL 70-110 TESTED AT [address] (test jizu=5709) [place] [address] CALCIUM, [id number] 05:39:00 Test Item Value Reference Range Comments CALCIUM IONIZED (BEAKER) (test gbqz=557) 0.84 mmol/L 1.12-1.27 PH, BLOOD (BEAKER) (test aycm=5951) 7.35 BASIC METABOLIC [id number] 05:07:00 Test Item Value Reference Range Comments SODIUM (BEAKER) (test 135 meq/L 136-145 rwuz=739) POTASSIUM (BEAKER) (test 4.9 meq/L 3.5-5.1 ygqq=938) CHLORIDE (BEAKER) (test 106 meq/L 98-107 qucp=948) CO2 (BEAKER) (test 22 meq/L 22-29 ykuj=758) BLOOD UREA NITROGEN 43 mg/dL 7-21 (BEAKER) (test rpav=611) CREATININE (BEAKER) (test 2.00 mg/dL 0.57-1.25 arkw=859) GLUCOSE RANDOM (BEAKER) 161 mg/dL 70-105 (test irmr=213) CALCIUM (BEAKER) (test 8.2 mg/dL 8.4-10.2 yaao=324) EGFR (BEAKER) (test 25 mL/min/1.73 sq m ESTIMATED GFR IS NOT zxrk=6739) ACCURATE CREATININE CLEARANCE IN PREDICTING GLOMERULAR FILTRATION RATE. ESTIMATED GFR IS NOT APPLICABLE FOR DIALYSIS PATIENTS. [id number] 05:06:00 Test Item Value Reference Range Comments PHOSPHORUS (BEAKER) (test mcjz=463) 3.2 mg/dL 2.3-4.7 [id number] 05:06:00 Test Item Value Reference Range Comments MAGNESIUM (BEAKER) (test ddem=252) 2.3 mg/dL 1.6-2.6 CBC W/PLT COUNT & AUTO [id number] 04:42:00 Test Item Value Reference Range Comments WHITE BLOOD CELL COUNT (BEAKER) (test sjmc=433) 9.5 K/ L 3.5-10.5 RED BLOOD CELL COUNT (BEAKER) (test cupl=793) 4.17 M/ L 3.93-5.22 HEMOGLOBIN (BEAKER) (test cuou=163) 10.5 GM/DL 11.2-15.7 HEMATOCRIT (BEAKER) (test olya=917) 34.2 % 34.1-44.9 MEAN CORPUSCULAR VOLUME (BEAKER) (test mwxs=717) 82.0 fL 79.4-94.8 MEAN CORPUSCULAR HEMOGLOBIN (BEAKER) (test 25.2 pg 25.6-32.2 gxlx=282) MEAN CORPUSCULAR HEMOGLOBIN CONC (BEAKER) (test 30.7 GM/DL 32.2-35.5 bzgc=938) RED CELL DISTRIBUTION WIDTH (BEAKER) (test 14.6 % 11.7-14.4 jzed=039) PLATELET COUNT (BEAKER) (test blpn=308) 177 K/CU MM 150-450 MEAN PLATELET VOLUME (BEAKER) (test dapb=769) 11.1 fL 9.4-12.3 NUCLEATED RED BLOOD CELLS (BEAKER) (test 0 /100 WBC 0-0 wtka=578) NEUTROPHILS RELATIVE PERCENT (BEAKER) (test 55 % rswc=854) LYMPHOCYTES RELATIVE PERCENT (BEAKER) (test 36 % mdph=914) MONOCYTES RELATIVE PERCENT (BEAKER) (test 6 % obzt=215) EOSINOPHILS RELATIVE PERCENT (BEAKER) (test 2 % wipq=870) BASOPHILS RELATIVE PERCENT (BEAKER) (test 1 % bnlf=220) NEUTROPHILS ABSOLUTE COUNT (BEAKER) (test 5.20 K/ L 1.56-6.13 lffz=655) LYMPHOCYTES ABSOLUTE COUNT (BEAKER) (test 3.37 K/ L 1.18-3.74 mlqr=559) MONOCYTES ABSOLUTE COUNT (BEAKER) (test 0.59 K/ L 0.24-0.36 fqco=454) EOSINOPHILS ABSOLUTE COUNT (BEAKER) (test 0.21 K/ L 0.04-0.36 ynms=865) BASOPHILS ABSOLUTE COUNT (BEAKER) (test 0.07 K/ L 0.01-0.08 ewed=715) IMMATURE GRANULOCYTES-RELATIVE PERCENT (BEAKER) 0 % 0-1 (test vycf=3717) RHEUMATOID FACTOR AB, REFLEX TO [id number] 01:52:00 Test Item Value Reference Range Comments RHEUMATOID FACTOR (BEAKER) (test dclq=028) Negative POCT-GLUCOSE [id number] 21:57:00 Test Item Value Reference Range Comments POC-GLUCOSE METER (BEAKER) 105 mg/dL 70-110 TESTED AT [place] [address] [facility] (test ooon=4525[facility] [place] [id number] POCT-GLUCOSE [id number] 18:11:00 Test Item Value Reference Range Comments POC-GLUCOSE METER (BEAKER) 312 mg/dL 70-110 Notified GUILHERME PIERRE/TESTED AT [facility] (test jlgf=7289) [address] [place] [address] PET, CARDIAC PERFUSION MULTIPLE STUDIES, REST AND [id number] 16:28: 00Reason for exam:->pvcs, known cadFINAL REPORT PROCEDURE: Rest/Stress MYOCARDIAL PERFUSION PET with regadenoson\XA9\ CPT CODE: 49129 INDICATION: Defined extent and severity of known [...] 23% . LVEF at stress is 36%. [place] [facility] CT images revealed a right pleural effusion [...] pleural and pericardial effusions. 7. No previous [facility] study for comparison. NONINVASIVE RISK STRATIFICATION: The above findings are considered high risk (>3% annual mortality rate) based on the following criteria: - Severe resting left ventricular dysfunction (LVEF 35%)- Stress-induced large perfusion defect ( particularly if anterior)(JACC. 2012;59(9):857-81.) Signed: Last Lopez MDReport Verified Date/Time: 05/15/2017 16:28:12 Reading Location: [address] [facility] ReadingRoom RAD, CHEST, 1 VIEW, NON [id number] 15:56:00Reason for exam:->SOBShould this be performed at the bedside?->YesFINAL REPORT Comparison: 05/14/2017 TECHNIQUE: Single view of the chest FINDINGS: There is a small right pleural effusion with nonspecific airspace disease. This is unchanged. Left lung is grossly clear. Cardiac silhouette is enlarged. IMPRESSION: 1. No acute cardiopulmonary disease. Signed : Sixto Monk MDReport Verified Date/Time: 05/15/2017 15:56:39 Reading Location : [facility] Radiology Reading Room POCT-GLUCOSE [id number] 12:54:00 Test Item Value Reference Range Comments POC-GLUCOSE METER (BEAKER) 308 mg/dL 70-110 Notified GUILHERME PIERRE/TESTED AT [facility] (test ixwh=5879) [address] [facility] [address] U/S, RENAL WITH [id number] 11:04:00Reason for exam:->tracy, htnShould this be performed [...] the resistive indices throughout. Signed : [facility] Verified Date/Time: 05/15/2017 11:04:01 Reading Location : [place] [id number] Ultrasound Reading Room ANA TITER AND [id number] 10:57:00 Test Item Value Reference Range Comments ROGER TITER (BEAKER) (test emwy=3323) :160 ROGER PATTERN (BEAKER) (test sjfw=9163) Speckled ANTI-NUCLEAR ANTIBODY (ROGER)2017-05-15 10:56:00 Test Item Value Reference Range Comments ANTI-NUCLEAR ANTIBODY (ROGER) (BEAKER) (test Positive Negative arqt=342) CALCIUM, [id number] 06:00:00 Test Item Value Reference Range Comments CALCIUM IONIZED (BEAKER) (test qana=866) 1.07 mmol/L 1.12-1.27 PH, BLOOD (BEAKER) (test yowo=2804) 7.28 HEPATITIS PANEL, [id number] 05:01:00 Test Item Value Reference Range Comments HEPATITIS A IGM ANTIBODY (BEAKER) (test Nonreactive Nonreactive owyn=605) HEPATITIS B CORE IGM ANTIBODY (BEAKER) (test Nonreactive Nonreactive uqvg=337) HEPATITIS C ANTIBODY (BEAKER) (test bxgc=976) Nonreactive Nonreactive HEPATITIS B SURFACE ANTIGEN (2) (BEAKER) (test Nonreactive Nonreactive tkhu=7007) BASIC METABOLIC [id number] 04:48:00 Test Item Value Reference Range Comments SODIUM (BEAKER) (test 135 meq/L 136-145 rlcg=972) POTASSIUM (BEAKER) (test 5.2 meq/L 3.5-5.1 hlao=037) CHLORIDE (BEAKER) (test 104 meq/L 98-107 hvxy=356) CO2 (BEAKER) (test 22 meq/L 22-29 riyi=318) BLOOD UREA NITROGEN 46 mg/dL 7-21 (BEAKER) (test ehxb=639) CREATININE (BEAKER) (test 2.64 mg/dL 0.57-1.25 lqbs=094) GLUCOSE RANDOM (BEAKER) 176 mg/dL 70-105 (test wrop=035) CALCIUM (BEAKER) (test 8.2 mg/dL 8.4-10.2 rabe=446) EGFR (BEAKER) (test 18 mL/min/1.73 sq m ESTIMATED GFR IS NOT rpsk=9437) ACCURATE CREATININE CLEARANCE IN PREDICTING GLOMERULAR FILTRATION RATE. ESTIMATED GFR IS NOT APPLICABLE FOR DIALYSIS PATIENTS. URIC [id number] 04:41:00 Test Item Value Reference Range Comments URIC ACID (BEAKER) (test bvag=182) 10.3 mg/dL 2.6-7.2 [id number] 04:41:00 Test Item Value Reference Range Comments MAGNESIUM (BEAKER) (test fyoh=595) 2.0 mg/dL 1.6-2.6 [id number] 04:41:00 Test Item Value Reference Range Comments PHOSPHORUS (BEAKER) (test hoos=052) 4.2 mg/dL 2.3-4.7 COMPLEMENT COMPONENT [id number] 04:38:00 Test Item Value Reference Range Comments C4 COMPLEMENT (BEAKER) (test entz=150) 28 mg/dL 15-57 COMPLEMENT COMPONENT [id number] 04:38:00 Test Item Value Reference Range Comments C3 COMPLEMENT (BEAKER) (test dhld=350) 103 mg/dL 82-193 CBC W/PLT COUNT & AUTO [id number] 04:22:00 Test Item Value Reference Range Comments WHITE BLOOD CELL COUNT (BEAKER) (test opaf=347) 11.0 K/ L 3.5-10.5 RED BLOOD CELL COUNT (BEAKER) (test bjrk=895) 4.25 M/ L 3.93-5.22 HEMOGLOBIN (BEAKER) (test mfwx=426) 10.6 GM/DL 11.2-15.7 HEMATOCRIT (BEAKER) (test xnfw=172) 35.3 % 34.1-44.9 MEAN CORPUSCULAR VOLUME (BEAKER) (test popf=849) 83.1 fL 79.4-94.8 MEAN CORPUSCULAR HEMOGLOBIN (BEAKER) (test 24.9 pg 25.6-32.2 nodk=559) MEAN CORPUSCULAR HEMOGLOBIN CONC (BEAKER) (test 30.0 GM/DL 32.2-35.5 czsj=117) RED CELL DISTRIBUTION WIDTH (BEAKER) (test 14.5 % 11.7-14.4 ogqu=675) PLATELET COUNT (BEAKER) (test njio=941) 185 K/CU MM 150-450 MEAN PLATELET VOLUME (BEAKER) (test senj=607) 10.9 fL 9.4-12.3 NUCLEATED RED BLOOD CELLS (BEAKER) (test 0 /100 WBC 0-0 xzkn=646) NEUTROPHILS RELATIVE PERCENT (BEAKER) (test 61 % jzvn=566) LYMPHOCYTES RELATIVE PERCENT (BEAKER) (test 31 % grka=182) MONOCYTES RELATIVE PERCENT (BEAKER) (test 5 % jqzj=807) EOSINOPHILS RELATIVE PERCENT (BEAKER) (test 2 % ryjf=559) BASOPHILS RELATIVE PERCENT (BEAKER) (test 1 % guwq=498) NEUTROPHILS ABSOLUTE COUNT (BEAKER) (test 6.72 K/ L 1.56-6.13 jyox=002) LYMPHOCYTES ABSOLUTE COUNT (BEAKER) (test 3.35 K/ L 1.18-3.74 kkie=017) MONOCYTES ABSOLUTE COUNT (BEAKER) (test 0.59 K/ L 0.24-0.36 fhqm=312) EOSINOPHILS ABSOLUTE COUNT (BEAKER) (test 0.21 K/ L 0.04-0.36 qjol=433) BASOPHILS ABSOLUTE COUNT (BEAKER) (test 0.06 K/ L 0.01-0.08 bgey=813) IMMATURE GRANULOCYTES-RELATIVE PERCENT (BEAKER) 0 % 0-1 (test kgqx=0400) POCT-GLUCOSE [id number] 21:46:00 Test Item Value Reference Range Comments POC-GLUCOSE METER (BEAKER) 173 mg/dL 70-110 TESTED AT [address] (test ouoi=8983) [place] [address] POCT-GLUCOSE [id number] 21:46:00 Test Item Value Reference Range Comments POC-GLUCOSE METER (BEAKER) 154 mg/dL 70-110 TESTED AT [address] (test ehcc=5180) [place] [address] POCT-GLUCOSE [id number] 18:17:00 Test Item Value Reference Range Comments POC-GLUCOSE METER (BEAKER) 175 mg/dL 70-110 TESTED AT [address] (test sqjh=1692) [place] [address] RAD, CHEST, 1 VIEW, NON [id number] 14:56:00Reason for exam:->SOBShould this be performed at the bedside?->YesFINAL REPORT INDICATION: SOB COMPARISON: May 13, 2017 TECHNIQUE: Chest radiograph, single view, portable technique. FINDINGS / IMPRESSION: Enlarged heart shadow, small rightpleural effusion, and pulmonary venous congestion, again demonstrated. No pneumothorax or consolidation. Osseous structures unremarkable. Signed: Satnam Jean [facility] Verified Date/Time: 05/14/2017 14:56:58 Reading Location: [facility] Mammo Reading Room POCT-GLUCOSE [id number] 12:18:00 Test Item Value Reference Range Comments POC-GLUCOSE METER (BEAKER) 313 mg/dL 70-110 TESTED AT [address] (test zljm=7825) [place] [address] HIV-1 ANTIGEN WITH HIV-1/2 [id number] 12:07:00 Test Item Value Reference Range Comments HIV-1 ANTIGEN WITH HIV 1\T\2 ANTIBODY (2) Nonreactive Nonreactive (BEAKER) (test ojsv=4742) CALCIUM, [id number] 06:37:00 Test Item Value Reference Range Comments CALCIUM IONIZED (BEAKER) (test rjol=551) 1.08 mmol/L 1.12-1.27 PH, BLOOD (BEAKER) (test qdul=6513) 7.25 BASIC METABOLIC [id number] 06:26:00 Test Item Value Reference Range Comments SODIUM (BEAKER) (test 134 meq/L 136-145 gnsi=626) POTASSIUM (BEAKER) (test 5.1 meq/L 3.5-5.1 ywel=203) CHLORIDE (BEAKER) (test 103 meq/L 98-107 nnjs=429) CO2 (BEAKER) (test 25 meq/L 22-29 jbyo=212) BLOOD UREA NITROGEN 45 mg/dL 7-21 (BEAKER) (test yhvg=134) CREATININE (BEAKER) (test 2.92 mg/dL 0.57-1.25 anav=965) GLUCOSE RANDOM (BEAKER) 163 mg/dL 70-105 (test jgpe=162) CALCIUM (BEAKER) (test 8.1 mg/dL 8.4-10.2 zzpg=541) EGFR (BEAKER) (test 16 mL/min/1.73 sq m ESTIMATED GFR IS NOT odgr=1634) ACCURATE CREATININE CLEARANCE IN PREDICTING GLOMERULAR FILTRATION RATE. ESTIMATED GFR IS NOT APPLICABLE FOR DIALYSIS PATIENTS. B-TYPE NATRIURETIC FACTOR (BNP)2017-05-14 06:26:00 Test Item Value Reference Range Comments B-TYPE NATRIURETIC PEPTIDE (BEAKER) (test 474 pg/mL 0-100 jewm=871) [id number] 06:25:00 Test Item Value Reference Range Comments PHOSPHORUS (BEAKER) (test vdom=518) 5.7 mg/dL 2.3-4.7 [id number] 06:25:00 Test Item Value Reference Range Comments MAGNESIUM (BEAKER) (test ftek=344) 1.5 mg/dL 1.6-2.6 CBC W/PLT COUNT & AUTO [id number] 06:07:00 Test Item Value Reference Range Comments WHITE BLOOD CELL COUNT (BEAKER) (test ohgw=958) 8.9 K/ L 3.5-10.5 RED BLOOD CELL COUNT (BEAKER) (test mjlh=398) 4.32 M/ L 3.93-5.22 HEMOGLOBIN (BEAKER) (test kqmy=143) 11.0 GM/DL 11.2-15.7 HEMATOCRIT (BEAKER) (test jlxb=723) 36.6 % 34.1-44.9 MEAN CORPUSCULAR VOLUME (BEAKER) (test amis=675) 84.7 fL 79.4-94.8 MEAN CORPUSCULAR HEMOGLOBIN (BEAKER) (test 25.5 pg 25.6-32.2 rkvz=522) MEAN CORPUSCULAR HEMOGLOBIN CONC (BEAKER) (test 30.1 GM/DL 32.2-35.5 xfsk=568) RED CELL DISTRIBUTION WIDTH (BEAKER) (test 14.6 % 11.7-14.4 gefp=451) PLATELET COUNT (BEAKER) (test efmg=979) 201 K/CU MM 150-450 MEAN PLATELET VOLUME (BEAKER) (test wzvd=720) 11.1 fL 9.4-12.3 NUCLEATED RED BLOOD CELLS (BEAKER) (test 0 /100 WBC 0-0 mapf=958) NEUTROPHILS RELATIVE PERCENT (BEAKER) (test 55 % vuce=960) LYMPHOCYTES RELATIVE PERCENT (BEAKER) (test 36 % xflh=470) MONOCYTES RELATIVE PERCENT (BEAKER) (test 5 % vmnm=394) EOSINOPHILS RELATIVE PERCENT (BEAKER) (test 3 % mgzu=510) BASOPHILS RELATIVE PERCENT (BEAKER) (test 1 % pzzu=283) NEUTROPHILS ABSOLUTE COUNT (BEAKER) (test 4.85 K/ L 1.56-6.13 ranh=554) LYMPHOCYTES ABSOLUTE COUNT (BEAKER) (test 3.18 K/ L 1.18-3.74 lqon=510) MONOCYTES ABSOLUTE COUNT (BEAKER) (test 0.47 K/ L 0.24-0.36 ztny=287) EOSINOPHILS ABSOLUTE COUNT (BEAKER) (test 0.25 K/ L 0.04-0.36 bqoi=301) BASOPHILS ABSOLUTE COUNT (BEAKER) (test 0.07 K/ L 0.01-0.08 hmwi=798) IMMATURE GRANULOCYTES-RELATIVE PERCENT (BEAKER) 0 % 0-1 (test qvle=1686) POCT-GLUCOSE [id number] 22:38:00 Test Item Value Reference Range Comments POC-GLUCOSE METER (BEAKER) 262 mg/dL 70-110 TESTED AT [facility] [address] (test pqdb=3956) [facility] [address] PROTEIN, RANDOM [id number] 22:18:00 Test Item Value Reference Range Comments PROTEIN, URINE (BEAKER) (test zdjp=8204) 641 mg/dL 0-14 CREATININE, RANDOM [id number] 22:07:00 Test Item Value Reference Range Comments CREATININE URINE (BEAKER) (test sfjz=609) 124.9 mg/dL Reference Range: No NormalsURINALYSIS W/ [id number] 22:03:00 Test Item Value Reference Range Comments COLOR (BEAKER) (test mszg=453) Yellow CLARITY (BEAKER) (test iuos=518) Cloudy SPECIFIC GRAVITY UA (BEAKER) (test jcth=489) 1.015 1.001-1.035 PH UA (BEAKER) (test jjlt=570) 5.5 5.0-8.0 PROTEIN UA (BEAKER) (test gftq=786) 300 mg/dL Negative GLUCOSE UA (BEAKER) (test djgx=302) 300 mg/dL Negative KETONES UA (BEAKER) (test ouhp=336) Negative Negative BILIRUBIN UA (BEAKER) (test jovz=152) Negative Negative BLOOD UA (BEAKER) (test hawq=021) Trace Negative NITRITE UA (BEAKER) (test bdnm=779) Negative Negative LEUKOCYTE ESTERASE UA (BEAKER) (test pqcc=012) Moderate Negative UROBILINOGEN UA (BEAKER) (test avhu=367) 0.2 mg/dL 0.2-1.0 RBC UA (BEAKER) (test ulji=852) 11 /HPF WBC UA (BEAKER) (test eetr=680) 36 /HPF MUCUS (BEAKER) (test cvmg=6207) Few SQUAMOUS EPITHELIAL (BEAKER) (test pnjg=312) 12 /HPF HYALINE CASTS (BEAKER) (test mzcq=425) 66 /LPF CASTS (BEAKER) (test zyvh=7669) 112 /LPF YEAST (BEAKER) (test hhnq=4428) Moderate SOURCE(BEAKER) (test zqzw=4079) Urine, Voided [id number] 19:49:00 Test Item Value Reference Range Comments SODIUM (BEAKER) (test kcbm=209) 136 meq/L 136-145 POTASSIUM (BEAKER) (test 5.1 meq/L 3.5-5.1 Specimen slightly hemolyzed yzsw=061) CHLORIDE (BEAKER) (test 104 meq/L 98-107 hhtg=201) CO2 (BEAKER) (test pysy=863) 25 meq/L 22-29 Call if K > 5POCT-GLUCOSE [id number] 11:37:00 Test Item Value Reference Range Comments POC-GLUCOSE METER (BEAKER) 293 mg/dL 70-110 TESTED AT [address] (test hjzj=5069) [place] [address] RAD, CHEST, 1 VIEW, NON [id number] 10:22:00Reason for exam:->SOBShould this be performed at the bedside?->YesFINAL REPORT Chest one view Discussion: There is cardiomegaly and interstitial congestion. A small right-sided effusion is noted. No pneumothorax. IMPRESSIONS: Suspected CHF. Signed: Jeannette Nava Verified Date/Time: 05/13/2017 10:22:34 Reading Location: [facility] Radiology Reading Room POCT-GLUCOSE [id number] 08:34:00 Test Item Value Reference Range Comments POC-GLUCOSE METER (BEAKER) 178 mg/dL 70-110 TESTED AT [address] (test udud=7954) [place] [address] POCT-GLUCOSE [id number] 06:53:00 Test Item Value Reference Range Comments POC-GLUCOSE METER (BEAKER) 167 mg/dL 70-110 TESTED AT [address] (test cdcj=9200) [place] [address] [id number] 04:48:00 Test Item Value Reference Range Comments BLOOD UREA NITROGEN (BEAKER) (test rnbz=366) 36 mg/dL 7-21 [id number] 04:48:00 Test Item Value Reference Range Comments SODIUM (BEAKER) (test bkea=194) 139 meq/L 136-145 POTASSIUM (BEAKER) (test rpgg=835) 5.2 meq/L 3.5-5.1 CHLORIDE (BEAKER) (test eaqh=168) 109 meq/L 98-107 CO2 (BEAKER) (test vnrc=843) 23 meq/L 22-29 [id number] 04:48:00 Test Item Value Reference Range Comments CREATININE (BEAKER) (test 1.73 mg/dL 0.57-1.25 yohc=924) EGFR (BEAKER) (test 30 mL/min/1.73 sq m ESTIMATED GFR IS NOT wuxa=3974) ACCURATE CREATININE CLEARANCE IN PREDICTING GLOMERULAR FILTRATION RATE. ESTIMATED GFR IS NOT APPLICABLE FOR DIALYSIS PATIENTS. CBC (HEMOGRAM ONLY)2017-05-13 04:33:00 Test Item Value Reference Range Comments WHITE BLOOD CELL COUNT (BEAKER) (test hzcx=183) 10.2 K/ L 3.5-10.5 RED BLOOD CELL COUNT (BEAKER) (test yjzi=372) 4.54 M/ L 3.93-5.22 HEMOGLOBIN (BEAKER) (test nbsq=112) 11.4 GM/DL 11.2-15.7 HEMATOCRIT (BEAKER) (test jrmh=341) 37.6 % 34.1-44.9 MEAN CORPUSCULAR VOLUME (BEAKER) (test lkqx=256) 82.8 fL 79.4-94.8 MEAN CORPUSCULAR HEMOGLOBIN (BEAKER) (test 25.1 pg 25.6-32.2 hntn=785) MEAN CORPUSCULAR HEMOGLOBIN CONC (BEAKER) (test 30.3 GM/DL 32.2-35.5 ntqx=645) RED CELL DISTRIBUTION WIDTH (BEAKER) (test 14.7 % 11.7-14.4 yexf=276) PLATELET COUNT (BEAKER) (test bzbf=526) 194 K/CU MM 150-450 MEAN PLATELET VOLUME (BEAKER) (test hgzn=647) 10.9 fL 9.4-12.3 NUCLEATED RED BLOOD CELLS (BEAKER) (test 0 /100 WBC 0-0 sjef=027) [id number] 23:29:00 Test Item Value Reference Range Comments ACTIVATED CLOTTING TIME 136 sec TESTED AT [address] (BEAKER) (test mruy=316) [facility] [address] [id number] 20:13:00 Test Item Value Reference Range Comments ACTIVATED CLOTTING TIME 175 sec TESTED AT [address] (BEAKER) (test xoto=280) [place] [address] [id number] 18:36:00 Test Item Value Reference Range Comments ACTIVATED CLOTTING TIME 202 sec TESTED AT [place] [address] [facility] ([facility] (test jmxa=949) [place] [address] [id number] 18:03:00 Test Item Value Reference Range Comments ACTIVATED CLOTTING TIME 208 sec TESTED AT [address] (BEAKER) (test yaoh=957) [place] [address] BASIC METABOLIC [id number] 11:57:00 Test Item Value Reference Range Comments SODIUM (BEAKER) (test 139 meq/L 136-145 xoif=428) POTASSIUM (BEAKER) (test 4.9 meq/L 3.5-5.1 sevd=593) CHLORIDE (BEAKER) (test 107 meq/L 98-107 ehmm=189) CO2 (BEAKER) (test 27 meq/L 22-29 docc=967) BLOOD UREA NITROGEN 36 mg/dL 7-21 (BEAKER) (test zcoq=225) CREATININE (BEAKER) (test 1.60 mg/dL 0.57-1.25 gxxm=376) GLUCOSE RANDOM (BEAKER) 187 mg/dL 70-105 (test ciuc=687) CALCIUM (BEAKER) (test 8.6 mg/dL 8.4-10.2 ptnl=237) EGFR (BEAKER) (test 33 mL/min/1.73 sq m ESTIMATED GFR IS NOT oxik=7579) ACCURATE CREATININE CLEARANCE IN PREDICTING GLOMERULAR FILTRATION RATE. ESTIMATED GFR IS NOT APPLICABLE FOR DIALYSIS PATIENTS. PROTHROMBIN [id number] 11:15:00 Test Item Value Reference Range Comments PROTIME (BEAKER) (test ndru=573) 14.8 seconds 11.7-14.7 INR (BEAKER) (test sxrs=290) 1.2 <=5.9 RECOMMENDED COUMADIN/WARFARIN INR THERAPY RANGESSTANDARD DOSE: 2.0 - 3.0 Includes: PROPHYLAXIS forvenous thrombosis, systemic embolization; TREATMENT for venous thrombosis and/or pulmonary embolus.HIGH RISK: Target INR is 2.5-3.5 for patients with mechanical heart valves.Within 24 hours, if on CoumadinCBC W/ PLT COUNT & AUTO [id number] 11:01:00 Test Item Value Reference Range Comments WHITE BLOOD CELL COUNT (BEAKER) (test phvg=998) 9.1 K/ L 3.5-10.5 RED BLOOD CELL COUNT (BEAKER) (test ligy=066) 4.62 M/ L 3.93-5.22 HEMOGLOBIN (BEAKER) (test edym=374) 11.7 GM/DL 11.2-15.7 HEMATOCRIT (BEAKER) (test fgql=074) 38.0 % 34.1-44.9 MEAN CORPUSCULAR VOLUME (BEAKER) (test itdb=092) 82.3 fL 79.4-94.8 MEAN CORPUSCULAR HEMOGLOBIN (BEAKER) (test 25.3 pg 25.6-32.2 tfwf=458) MEAN CORPUSCULAR HEMOGLOBIN CONC (BEAKER) (test 30.8 GM/DL 32.2-35.5 adxg=257) RED CELL DISTRIBUTION WIDTH (BEAKER) (test 14.5 % 11.7-14.4 splz=499) PLATELET COUNT (BEAKER) (test vwwr=172) 205 K/CU MM 150-450 MEAN PLATELET VOLUME (BEAKER) (test tzmj=920) 10.6 fL 9.4-12.3 NUCLEATED RED BLOOD CELLS (BEAKER) (test 0 /100 WBC 0-0 jldd=524) NEUTROPHILS RELATIVE PERCENT (BEAKER) (test 59 % qilr=592) LYMPHOCYTES RELATIVE PERCENT (BEAKER) (test 32 % xjce=609) MONOCYTES RELATIVE PERCENT (BEAKER) (test 5 % shon=077) EOSINOPHILS RELATIVE PERCENT (BEAKER) (test 3 % kbkc=791) BASOPHILS RELATIVE PERCENT (BEAKER) (test 1 % tvko=561) NEUTROPHILS ABSOLUTE COUNT (BEAKER) (test 5.36 K/ L 1.56-6.13 pigg=812) LYMPHOCYTES ABSOLUTE COUNT (BEAKER) (test 2.86 K/ L 1.18-3.74 yhnd=358) MONOCYTES ABSOLUTE COUNT (BEAKER) (test 0.48 K/ L 0.24-0.36 kbyi=420) EOSINOPHILS ABSOLUTE COUNT (BEAKER) (test 0.27 K/ L 0.04-0.36 mvrj=880) BASOPHILS ABSOLUTE COUNT (BEAKER) (test 0.08 K/ L 0.01-0.08 vvwq=186) IMMATURE GRANULOCYTES-RELATIVE PERCENT (BEAKER) 0 % 0-1 (test yvhp=7068) POCT-GLUCOSE [id number] 12:35:00 Test Item Value Reference Range Comments POC-GLUCOSE METER (BEAKER) 249 mg/dL 70-110 TESTED AT [address] (test mfwh=9132) [facility] [address] POCT-GLUCOSE [id number] 09:10:00 Test Item Value Reference Range Comments POC-GLUCOSE METER (BEAKER) 155 mg/dL 70-110 TESTED AT [address] (test nbpo=0786) [facility] [address] BASIC METABOLIC [id number] 05:39:00 Test Item Value Reference Range Comments SODIUM (BEAKER) (test 138 meq/L 136-145 hrqe=758) POTASSIUM (BEAKER) (test 4.7 meq/L 3.5-5.1 rasu=391) CHLORIDE (BEAKER) (test 107 meq/L 98-107 ytrg=930) CO2 (BEAKER) (test 25 meq/L 22-29 jhcq=762) BLOOD UREA NITROGEN 36 mg/dL 7-21 (BEAKER) (test cbnu=060) CREATININE (BEAKER) (test 1.75 mg/dL 0.57-1.25 czft=856) GLUCOSE RANDOM (BEAKER) 126 mg/dL 70-105 (test sntt=625) CALCIUM (BEAKER) (test 8.2 mg/dL 8.4-10.2 qtjm=537) EGFR (BEAKER) (test 29 mL/min/1.73 sq m ESTIMATED GFR IS NOT ihfh=1346) ACCURATE CREATININE CLEARANCE IN PREDICTING GLOMERULAR FILTRATION RATE. ESTIMATED GFR IS NOT APPLICABLE FOR DIALYSIS PATIENTS. [id number] 05:27:00 Test Item Value Reference Range Comments PHOSPHORUS (BEAKER) (test owwa=202) 5.0 mg/dL 2.3-4.7 [id number] 05:27:00 Test Item Value Reference Range Comments MAGNESIUM (BEAKER) (test bynv=187) 1.6 mg/dL 1.6-2.6 POCT-GLUCOSE [id number] 05:25:00 Test Item Value Reference Range Comments POC-GLUCOSE METER (BEAKER) 144 mg/dL 70-110 TESTED AT [address] (test anxh=2173) [place] [address] PROTHROMBIN [id number] 04:58:00 Test Item Value Reference Range Comments PROTIME (BEAKER) (test bshf=522) 14.2 seconds 11.7-14.7 INR (BEAKER) (test hcoq=180) 1.1 <=5.9 RECOMMENDED COUMADIN/WARFARIN INR THERAPY RANGESSTANDARD DOSE: 2.0 - 3.0 Includes: PROPHYLAXIS forvenous thrombosis, systemic embolization; TREATMENT for venous thrombosis and/or pulmonary embolus.HIGH RISK: Target INR is 2.5-3.5 for patients with mechanical heart valves.POCT-GLUCOSE [id number] 23:55:00 Test Item Value Reference Range Comments POC-GLUCOSE METER (BEAKER) 86 mg/dL 70-110 TESTED AT [address] (test vrbb=7670) [place] [address] B-TYPE NATRIURETIC FACTOR (BNP)2017-04-22 18:13:00 Test Item Value Reference Range Comments B-TYPE NATRIURETIC PEPTIDE (BEAKER) (test 1203 pg/mL 0-100 mgva=380) POCT-GLUCOSE [id number] 17:36:00 Test Item Value Reference Range Comments POC-GLUCOSE METER (BEAKER) 259 mg/dL 70-110 TESTED AT [address] (test fgoe=5987) [place] [address] HEMOGLOBIN [id number] 14:24:00 Test Item Value Reference Range Comments HEMOGLOBIN A1C (BEAKER) (test myev=153) 10.5 % 4.3-6.1 POCT-GLUCOSE [id number] 12:34:00 Test Item Value Reference Range Comments POC-GLUCOSE METER (BEAKER) 207 mg/dL 70-110 TESTED AT [address] (test erzu=7821) [place] [address] [id number] 07:53:00 Test Item Value Reference Range Comments PHOSPHORUS (BEAKER) (test kkbv=262) 3.9 mg/dL 2.3-4.7 [id number] 07:53:00 Test Item Value Reference Range Comments MAGNESIUM (BEAKER) (test wydk=180) 1.6 mg/dL 1.6-2.6 BASIC METABOLIC [id number] 07:53:00 Test Item Value Reference Range Comments SODIUM (BEAKER) (test 139 meq/L 136-145 hyab=549) POTASSIUM (BEAKER) (test 4.5 meq/L 3.5-5.1 fvpz=310) CHLORIDE (BEAKER) (test 108 meq/L 98-107 uixd=091) CO2 (BEAKER) (test 25 meq/L 22-29 qphs=686) BLOOD UREA NITROGEN 29 mg/dL 7-21 (BEAKER) (test juof=511) CREATININE (BEAKER) (test 1.54 mg/dL 0.57-1.25 cpcn=558) GLUCOSE RANDOM (BEAKER) 211 mg/dL 70-105 (test vzvl=731) CALCIUM (BEAKER) (test 8.5 mg/dL 8.4-10.2 zkeh=747) EGFR (BEAKER) (test 34 mL/min/1.73 sq m ESTIMATED GFR IS NOT sscd=2736) ACCURATE CREATININE CLEARANCE IN PREDICTING GLOMERULAR FILTRATION RATE. ESTIMATED GFR IS NOT APPLICABLE FOR DIALYSIS PATIENTS. TROPONIN [id number] 07:29:00 Test Item Value Reference Range Comments TROPONIN I (BEAKER) (test ipjr=240) 0.05 ng/mL 0.00-0.03 Troponin I (TnI) levels [...] acidosis, acute neurological disease, and persistent tachyarrhythmia.PROTHROMBIN [id number] 07:01:00 Test Item Value Reference Range Comments PROTIME (BEAKER) (test wjlk=156) 13.8 seconds 11.7-14.7 INR (BEAKER) (test xfoy=033) 1.1 <=5.9 RECOMMENDED COUMADIN/WARFARIN INR THERAPY RANGESSTANDARD DOSE: 2.0 - 3.0 Includes: PROPHYLAXIS forvenous thrombosis, systemic embolization; TREATMENT for venous thrombosis and/or pulmonary embolus.HIGH RISK: Target INR is 2.5-3.5 for patients with mechanical heart valves.POCT-GLUCOSE [id number] 06:28:00 Test Item Value Reference Range Comments POC-GLUCOSE METER (BEAKER) 198 mg/dL 70-110 TESTED AT [address] (test gquq=1381) [place] [id number] CREATINE KINASE (CK), TOTAL AND [id number] 00:49:00 Test Item Value Reference Range Comments CREATINE KINASE TOTAL (BEAKER) (test wzbc=986) 69 U/L 29-200 CREATINE KINASE-MB (BEAKER) (test ausx=772) 4.3 ng/mL 0.0-6.6 CREATINE KINASE-MB INDEX (BEAKER) (test nqwf=597) 6.2 % CK-MB Reference Range:<6.7 Normal6.7-10.0 Borderline>10.0 AbnormalTROPONIN [id number] 00:49:00 Test Item Value Reference Range Comments TROPONIN I (BEAKER) (test jlcr=176) 0.05 ng/mL 0.00-0.03 Troponin I (TnI) levels [...] acidosis, acute neurological disease, and persistent tachyarrhythmia.POCT-GLUCOSE [id number] 20:44:00 Test Item Value Reference Range Comments POC-GLUCOSE METER (BEAKER) 269 mg/dL 70-110 TESTED AT [address] (test ysan=8298) [place] [id number]
--- NOTE | 2017-10-02 17:05 | RAD REPORT ---
EXAM DESCRIPTION: Butch Single View10/02/2017 4:59 pm CLINICAL HISTORY: sob COMPARISON: June 2017 FINDINGS: Postsurgical changes involve the chest. Small pleural effusions are suspected. Mild interstitial lung opacities are present. The heart is mildly enlarged IMPRESSION: Mild CHF
[2017-10-02] MEDS ORDERED: FUROSEMIDE 40 MG/4 ML VIAL ONE (17:30)
[2017-10-02 17:37] LABS: Absolute Lymphocytes (CBC) 2.8 K/uL (0.7-4.9); Absolute Monocytes 0.4 K/uL (0.1-1.3); Absolute Neutrophil 4.5 K/uL (1.8-8.0); Basophils % 0.9 % (0-1.3); Eosinophils % 3.1 % (0-4.4); Hematocrit 31.3 % (36.0-45.0); Lymphocytes % 34.8 % (15.3-44.8); MCH 25.1 pg (27.0-35.0); MCV 78.5 fL (80-100); MPV 7.9 fL (7.6-11.3); Monocytes % 5.4 % (3.3-12.3); RBC Red Blood Cell Count 3.99 M/uL (3.86-4.86)
[2017-10-02 17:39] LABS: Protime INR 1.02
[2017-10-02 17:42] LABS: ALT/SGPT 35 U/L (12-78); AST/SGOT 25 U/L (15-37); Alkaline Phosphatase 181 U/L (45-117); BUN Blood Urea Nitrogen 50 mg/dL (7-18); Bicarbonate 25 mmol/L (21-32); Bilirubin Direct < 0.1 mg/dL (0-0.2); Bilirubin Total 0.3 mg/dL (0.2-1.0); Glucose Level 264 mg/dL (74-106); Potassium 4.7 mmol/L (3.5-5.1); Sodium Level 139 mmol/L (136-145)
[2017-10-02 17:43] LABS: Albumin 2.7 g/dL (3.4-5.0); Magnesium 2.5 mg/dL (1.8-2.4); NT PRO-BNP 9086 pg/mL (<125); Protein, Total 7.5 g/dL (6.4-8.2)
[2017-10-02] MEDS ORDERED: ALBUTEROL 2.5 MG/3 ML NEB SOL NEB PRN (18:21)
[2017-10-02] MEDS ORDERED: D50W 25 GM/50 ML SYRINGE IV PRN (18:21)
[2017-10-02] MEDS ORDERED: IPRATROPIUM BROM 0.5MG/2.5ML NEB PRN (18:21)
[2017-10-02] MEDS ORDERED: ACETAMINOPHEN 500 MG TAB PO PRN (18:21)
[2017-10-02] MEDS ORDERED: ONDANSETRON 4 MG/2 ML VIAL IV PRN (18:21)
[2017-10-02] MEDS ORDERED: GLUCAGON 1 MG/VIAL IM PRN (18:21)
--- NOTE | 2017-10-02 18:25 | ER ---
Nurse's Notes [facility] Name: Christy Priest Age: 62 yrs Sex: Female : 1955 Arrival Date: 10/02/2017 Time: 16:19 Bed 4 Private MD: Out, [facility] Diagnosis: Acute combined systolic (congestive) and diastolic (congestive) heart failure;Chronic kidney disease (CKD);Anasarca Presentation: 10/02 16:28 Presenting complaint: Patient states: Reports that she has had swelling of the right sg leg since a bypass surgery done at [facility] in the [facility], swelling to the legs has gotten worse, ABD distention, and shortness of breath today. Transition of care: patient was not received from another setting of care. Onset of symptoms was October 02, 2017. Risk Assessment: Do you want to hurt yourself or someone else? Patient reports no desire to harm self or others. Initial Sepsis Screen: Does the patient meet any 2 criteria? No. Patient's initial sepsis screen is negative. Does the patient have a suspected source of infection? No. Patient's initial sepsis screen is negative. Care prior to arrival: None. 16:28 Method Of Arrival: Ambulatory sg 16:28 Acuity: DENNY 3 sg Historical: - Allergies: 16:30 Augmentin; sg 16:30 basil; sg 16:30 Morphine; sg 16:30 Nitroglycerin; sg 16:30 Tramadol HCl; sg 16:30 Vancomycin; sg 16:30 Trazodone; sg - PMHx: 16:30 CHF; COPD; Diabetes - IDDM; High Cholesterol; Hypertension; triple bypass; uterine sg cancer; - PSHx: 16:30 CABG; sg - Immunization history:: Adult Immunizations up to date. - Social history:: Smoking status: Patient uses tobacco products, smokes one-half pack cigarettes per day. - Ebola Screening: : Patient negative for fever greater than or equal to 101.5 degrees Fahrenheit, and additional compatible Ebola Virus Disease symptoms Patient denies exposure to infectious person Patient denies travel to an Ebola-affected area in the 21 days before illness onset No symptoms or risks identified at this time. Screenin:10 Abuse screen: Denies threats or abuse. Denies injuries from another. Nutritional sv screening: No deficits noted. Tuberculosis screening: No symptoms or risk factors identified. Fall Risk None identified. Assessment: 17:15 General: Appears in no apparent distress. uncomfortable, Behavior is calm, cooperative, sv appropriate for age. Pain: Complains of pain in right leg and left leg Pain currently is 3 out of 10 on a pain scale. Neuro: Level of Consciousness is awake, alert, obeys commands, Oriented to person, place, time, situation, Moves all extremities. Full function Gait is steady, Speech is normal. Cardiovascular: Capillary refill is > 3 seconds is sluggish in bilateral fingers Clubbing of nail beds is present Patient's skin is warm and dry. Pulses are 3+ in right radial artery and left radial artery Edema is 2+ to left midcalf, left ankle and left foot is 3+ to right lower thigh, right knee, right midcalf, right ankle and right foot pitting to left midcalf, left ankle, left foot, right lower thigh, right knee, right midcalf, right ankle and right foot. Respiratory: Reports shortness of breath at rest on exertion laying flat Respiratory effort is even, unlabored, Respiratory pattern is regular, tachypnea Breath sounds are diminished bilaterally. GI: Abdomen is distended, Bowel sounds present X 4 quads. Abd is soft X 4 quads. EENT: Eyes Redness noted around bilateral eyes, pt reports that isn't normal for her.. Derm: Skin is normal, Wound noted medial aspect of right thigh Wound is open and has a pinpoint area that pt states has reopened since her surgery. Musculoskeletal: Circulation, motion, and sensation intact. Range of motion: intact in all extremities. 18:30 Reassessment: Patient appears in no apparent distress at this time. No changes from sv previously documented assessment. Patient and/or family updated on plan of care and expected duration. Pain level reassessed. Patient is alert, oriented x 3, equal unlabored respirations, skin warm/dry/pink. 19:25 Reassessment: Patient appears in no apparent distress at this time. Patient is alert, rv oriented x 3, equal unlabored respirations, skin warm/dry/pink. received patient lying on bed. vital signs are stable. admit orders are in. waiting for room assignment on the floor. 19:54 Reassessment: Patient appears in no apparent distress at this time. given to report to gerard Davenport at [facility] 2nd floor. awaiting availability of the room. Vital Signs: 16:33 BP 168 / 84; Pulse 77; Resp 22 S; Temp 97.7(TE); Pulse Ox 97% on R/A; Weight 81.65 kg ss (R); Pain 3/10; 17:15 Pulse Ox 92% on R/A; sv 17:37 BP 152 / 67; Pulse 63; Resp 22; Pulse Ox 97% on 2 lpm NC; sv 19:00 BP 153 / 67; Pulse 68; Resp 16; Pulse Ox 97% on 2 lpm NC; sv 19:26 BP 167 / 70; Pulse 65; Resp 16; Pulse Ox 97% on 2 lpm NC; rv 17:15 pt placed on O2 \T\ 2L per NC. O2 sat up to 97% sv ED Course: 16:19 Patient arrived in ED. sb2 16:20 Out, [facility] is Private Physician. sb2 16:28 Arm band placed on. sg 16:29 Triage completed. sg 16:31 Hung Draper PA is PHCP. jr8 16:31 Jurgen Nettles MD is Attending Physician. jr8 16:44 EKG done, by industrial safety and health technician. reviewed by Hung LEWIS. sm3 16:50 Edith Alaniz, GUILHERME is Primary Nurse. sv 16:58 X-ray completed. Portable x-ray completed in exam room. Patient tolerated procedure kp1 well. 16:59 XRAY Chest (1 view) In Process Unspecified. EDMS 17:00 Initial lab(s) drawn, by ma, sent to lab. Inserted saline lock: 20 gauge in right sv antecubital area, using aseptic technique. Blood collected. Flushed right antecubital with 5 ml normal saline. 17:10 Patient has correct armband on for positive identification. Placed in gown. Bed in low sv position. Adult w/ patient. residential monitor on. Pulse ox on. NIBP on. Door closed. Warm blanket given. Head of bed elevated. 17:10 Urine collected: clean catch specimen, clear. sv 18:24 Nimesh Barreto DO is Hospitalizing Provider. jr8 19:02 Ultrasound completed. Patient tolerated well. cy 19:05 Report given to Gayle VANEGAS and Jose Cruz VANEGAS. sv 20:55 No provider procedures requiring assistance completed. Patient admitted, IV remains in rv place. intact. Administered Medications: 17:31 Drug: Lasix 40 mg Route: IVP; Site: right antecubital; sv 18:00 Follow up: Response: No adverse reaction sv 19:23 Drug: Nicoderm CQ 21 mg/24 hr 1 patches Route: Transdermal; Site: affected area; rv Output: 18:35 Urine: 100ml; Total: 100ml. dh3 Outcome: 18:25 Decision to Hospitalize by Provider. [facility] 20:55 Admitted to Med/surg accompanied by [facility], via wheelchair, room 229, with chart, [facility] 20:55 Condition: stable 20:57 Patient left the ED. rv Signatures: Dispatcher [employer] EDMS Edith Alaniz, GUILHERME RN Aba Mendez RN RN sg Smirch, Shelby, RN RN ss Hung Draper PA PA jr8 Dilia Mcknight kp1 Huong Lawrence 3 Ayanna Garza Sheri 2 Vidhya Mendoza 3 Addi Ramachandran RN RN rv Corrections: (The following items were deleted from the chart) 19:12 17:15 Derm: Skin is normal, sv sv
--- NOTE | 2017-10-02 18:26 | EDPHYS ---
Physician Documentation [facility] Name: Christy Priest Age: 62 yrs Sex: Female : 1955 Arrival Date: 10/02/2017 Time: 16:19 Bed 4 Private MD: Out, [facility] ED Physician Jurgen Nettles HPI: 10/02 18:21 This 62 yrs old Female presents to ER via Ambulatory with complaints of Leg jr8 Swelling. 18:21 Patient with history of CABG in May and femoral bypass to right leg this past july. jr8 Stated that for two weeks has had increased lower leg swelling that is getting worse. Now having shortness of breath. Severity of symptoms: At their worst the symptoms were moderate in the emergency department the symptoms are unchanged. The patient has not experienced similar symptoms in the past. The patient has not recently seen a physician. Historical: - Allergies: 16:30 Augmentin; sg 16:30 basil; sg 16:30 Morphine; sg 16:30 Nitroglycerin; sg 16:30 Tramadol HCl; sg 16:30 Vancomycin; sg 16:30 Trazodone; sg - PMHx: 16:30 CHF; COPD; Diabetes - IDDM; High Cholesterol; Hypertension; triple bypass; uterine sg cancer; - PSHx: 16:30 CABG; sg - Immunization history:: Adult Immunizations up to date. - Social history:: Smoking status: Patient uses tobacco products, smokes one-half pack cigarettes per day. - Ebola Screening: : Patient negative for fever greater than or equal to 101.5 degrees Fahrenheit, and additional compatible Ebola Virus Disease symptoms Patient denies exposure to infectious person Patient denies travel to an Ebola-affected area in the 21 days before illness onset No symptoms or risks identified at this time. ROS: 18:21 Eyes: Negative for injury, pain, redness, and discharge, ENT: Negative for injury, jr8 pain, and discharge, Neck: Negative for injury, pain, and swelling, Abdomen/GI: Negative for abdominal pain, nausea, vomiting, diarrhea, and constipation, Back: Negative for injury and pain, MS/Extremity: Negative for injury and deformity, Skin: Negative for injury, rash, and discoloration, Neuro: Negative for headache, weakness, numbness, tingling, and seizure. 18:21 Cardiovascular: Positive for edema, Negative for chest pain, orthopnea. 18:21 Respiratory: Positive for shortness of breath. Exam: 18:21 Eyes: Pupils equal round and reactive to light, extra-ocular motions intact. Lids and jr8 lashes normal. Conjunctiva and sclera are non-icteric and not injected. Cornea within normal limits. Periorbital areas with no swelling, redness, or edema. ENT: Nares patent. No nasal discharge, no septal abnormalities noted. Tympanic membranes are normal and external auditory canals are clear. Oropharynx with no redness, swelling, or masses, exudates, or evidence of obstruction, uvula midline. Mucous membranes moist. Neck: Trachea midline, no thyromegaly or masses palpated, and no cervical lymphadenopathy. Supple, full range of motion without nuchal rigidity, or vertebral point tenderness. No Meningismus. Abdomen/GI: Soft, non-tender, with normal bowel sounds. No distension or tympany. No guarding or rebound. No evidence of tenderness throughout. Back: No spinal tenderness. No costovertebral tenderness. Full range of motion. Skin: Warm, dry with normal turgor. Normal color with no rashes, no lesions, and no evidence of cellulitis. MS/ Extremity: Pulses equal, no cyanosis. Neurovascular intact. Full, normal range of motion. Neuro: Awake and alert, GCS 15, oriented to person, place, time, and situation. Cranial nerves II-XII grossly intact. Motor strength 5/5 in all extremities. Sensory grossly intact. Cerebellar exam normal. Normal gait. 18:21 Cardiovascular: Rate: normal, Rhythm: regular, Pulses: Pulses are 2+ in right radial artery, right dorsalis pedis artery, left radial artery and left dorsalis pedis artery. Heart sounds: normal, normal S1and S2, no S3 or S4, no murmur, no rub, no gallop, Edema: 3+ edema to level of waist, pubic area, left upper thigh, left lower thigh, left knee, left midcalf, left ankle, left foot, left toes, right upper thigh, right lower thigh, right knee, right midcalf, right ankle, right foot and right toes, JVD: is not appreciated. 18:21 Respiratory: the patient does not display signs of respiratory distress, Respirations: tachypnea, Breath sounds: decreased breath sounds, that are mild, are located in both bases. Vital Signs: 16:33 BP 168 / 84; Pulse 77; Resp 22 S; Temp 97.7(TE); Pulse Ox 97% on R/A; Weight 81.65 kg ss (R); Pain 3/10; 17:15 Pulse Ox 92% on R/A; sv 17:37 BP 152 / 67; Pulse 63; Resp 22; Pulse Ox 97% on 2 lpm NC; sv 19:00 BP 153 / 67; Pulse 68; Resp 16; Pulse Ox 97% on 2 lpm NC; sv 19:26 BP 167 / 70; Pulse 65; Resp 16; Pulse Ox 97% on 2 lpm NC; rv 17:15 pt placed on O2 \T\ 2L per NC. O2 sat up to 97% sv MDM: 16:31 Patient medically screened. jr8 18:23 Data reviewed: vital signs, nurses notes, lab test result(s), EKG, radiologic studies, jr8 plain films, and as a result, I will admit patient. Data interpreted: Pulse oximetry: on room air is 97 %. Interpretation: normal. Counseling: I had a detailed discussion with the patient and/or guardian regarding: the historical points, exam findings, and any diagnostic results supporting the discharge/admit diagnosis, lab results, radiology results, the need for further work-up and treatment in the hospital. Physician consultation: Nimesh Barreto DO was called at 18:23, was contacted at 18:24, regarding admission, to the telemetry unit. consult, patient's condition, and will see patient. 10/02 16:48 Order name: Basic Metabolic Panel; Complete Time: 17:57 10/02 16:48 Order name: CBC with Diff; Complete Time: 17:57 10/02 16:48 Order name: LFT's; Complete Time: 17:57 10/02 16:48 Order name: Magnesium; Complete Time: 17:57 10/02 16:48 Order name: NT PRO-BNP; Complete Time: 17:57 10/02 16:48 Order name: PT-INR; Complete Time: 17:57 10/02 16:48 Order name: Troponin (emerg Dept Use Only); Complete Time: 17:57 10/02 17:13 Order name: Urine Dipstick--Ancillary (enter results); Complete Time: 19:34 em1 10/02 18:31 Order name: Vitamin B12 Level EDWA 10/02 18:31 Order name: Vitamin B12 Level EDWA 10/02 18:31 Order name: Basic Metabolic Panel EDMS 10/02 18:31 Order name: Basic Metabolic Panel EDMS 10/02 18:31 Order name: Basic Metabolic Panel EDMS 10/02 18:31 Order name: Basic Metabolic Panel EDWA 10/02 18:31 Order name: CKMB Creatine Kinase MB EDWA 10/02 18:31 Order name: CKMB Creatine Kinase MB EDMS 10/02 18:31 Order name: CKMB Creatine Kinase MB EDWA 10/02 18:31 Order name: Creatine Phosphokinase EDWA 10/02 18:31 Order name: Creatine Phosphokinase EDWA 10/02 18:31 Order name: Creatine Phosphokinase EDWA 10/02 18:31 Order name: Ferritin EDWA 10/02 18:31 Order name: Ferritin EDWA 10/02 18:31 Order name: Hemoglobin A1c EDWA 10/02 18:31 Order name: Hemoglobin A1c EDWA 10/02 18:31 Order name: Iron EDWA 10/02 18:31 Order name: Iron EDWA 10/02 18:31 Order name: Lipid Profile EDWA 10/02 18:31 Order name: Lipid Profile EDWA 10/02 18:31 Order name: Magnesium EDWA 10/02 18:31 Order name: Magnesium EDWA 10/02 16:48 Order name: XRAY Chest (1 view); Complete Time: 17:07 10/02 16:48 Order name: EKG; Complete Time: 16:49 10/02 16:48 Order name: Cardiac monitoring; Complete Time: 17:20 10/02 16:48 Order name: EKG - Nurse/Tech; Complete Time: 17:20 10/02 16:48 Order name: IV Saline Lock; Complete Time: 17:21 10/02 16:48 Order name: Labs collected and sent; Complete Time: 17:21 10/02 16:48 Order name: O2 Per Protocol; Complete Time: 17:21 10/02 16:48 Order name: O2 Sat Monitoring; Complete Time: 17:21 10/02 16:48 Order name: Urine Dipstick-Ancillary (obtain specimen); Complete Time: 17:12 jr8 10/02 18:31 Order name: Magnesium EDMS 10/02 18:31 Order name: Magnesium EDMS 10/02 18:31 Order name: Magnesium EDMS 10/02 18:31 Order name: Magnesium EDMS 10/02 18:31 Order name: T4 Free EDMS 10/02 18:31 Order name: T4 Free EDMS 10/02 18:31 Order name: Transferrin Sat/Iron Binding EDMS 10/02 18:31 Order name: Transferrin Sat/Iron Binding EDMS 10/02 18:31 Order name: Troponin I EDMS 10/02 18:31 Order name: Troponin I EDMS 10/02 18:31 Order name: Troponin I EDMS 10/02 18:31 Order name: Thyroid Stimulating Hormone EDMS 10/02 18:31 Order name: Thyroid Stimulating Hormone EDMS 10/02 18:32 Order name: CONS Physician Consult EDMS 10/02 18:32 Order name: CONS Physician Consult EDMS 10/02 18:32 Order name: Consistent Carb (ADA) 2000 Mike EDMS 10/02 18:32 Order name: Echo with Doppler EDMS 10/02 18:32 Order name: Extrem Venous W Compress René; Complete Time: 20:08 EDMS 10/02 18:42 Order name: Social Service Consult EDMS Administered Medications: 17:31 Drug: Lasix 40 mg Route: IVP; Site: right antecubital; sv 18:00 Follow up: Response: No adverse reaction sv 19:23 Drug: Nicoderm CQ 21 mg/24 hr 1 patches Route: Transdermal; Site: affected area; rv Disposition: 10/03 07:11 Co-signature as Attending Physician, Jurgen Nettles MD. rn Disposition: 10/02/17 18:25 Hospitalization ordered by Nimesh Barreto for Inpatient Admission. Preliminary diagnosis are Acute combined systolic (congestive) and diastolic (congestive) heart failure, Chronic kidney disease (CKD), Anasarca . - Bed requested for Telemetry/MedSurg (Inpatient). - Status is Inpatient Admission. rv - Condition is Stable. - Problem is new. - Symptoms have improved. UTI on Admission? No Signatures: Dispatcher [employer] EDMS Edith Alaniz RN RN sv Webb, Martha, RN RN Mendez, Aba, RN Jurgen Winslow MD MD rn Roszak, Josh, DEBBIE PA jr8 Rocio Nguyen Ronaldo, RN RN rv Corrections: (The following items were deleted from the chart) 10/02 19:19 18:25 Hospitalization Ordered by Nimesh Barreto DO for Inpatient Admission. Preliminary eb diagnosis is Acute combined systolic (congestive) and diastolic (congestive) heart failure; Chronic kidney disease (CKD); Anasarca . Bed requested for Telemetry/MedSurg (Inpatient). Status is Inpatient Admission. Condition is Stable. Problem is new. Symptoms have improved. UTI on Admission? No. jr8 19:27 19:19 10/02/2017 18:25 Hospitalization Ordered by Nimesh Barreto DO for Inpatient mw Admission. Preliminary diagnosis is Acute combined systolic (congestive) and diastolic (congestive) heart failure; Chronic kidney disease (CKD); Anasarca . Bed requested for Telemetry/MedSurg (Inpatient). Status is Inpatient Admission. Condition is Stable. Problem is new. Symptoms have improved. UTI on Admission? No. eb 20:57 19:27 10/02/2017 18:25 Hospitalization Ordered by Nimesh Barreto DO for Inpatient rv Admission. Preliminary diagnosis is Acute combined systolic (congestive) and diastolic (congestive) heart failure; Chronic kidney disease (CKD); Anasarca . Bed requested for Telemetry/MedSurg (Inpatient). Status is Inpatient Admission. Condition is Stable. Problem is new. Symptoms have improved. UTI on Admission? No. mw
--- NOTE | 2017-10-02 18:38 | P.HP ---
Certification for Inpatient Patient admitted to: Inpatient With expected LOS: >2 Midnights Patient will require the following post-hospital care: Other Practitioner: I am a practitioner with admitting privileges, knowledge of patient current condition, hospital course, and medical plan of care. Services: Services provided to patient in accordance with Admission requirements found in Title 42 Section 412.3 of the Code of Federal Regulations Patient History Date of Service: 10/02/17 Primary Care Provider: Dr. Rendon([facility]) Reason for admission: Shortness of breath, edema History of Present Illness: 62-year-old female present emergency room with shortness of breath and edema. Patient reports a history of CABG x3 vessels in May of 2017. She then had a femoral popliteal bypass on August 05, 2017. She reports that since that time she has been developing some increasing edema to the lower extremities. Right greater than left. Over the last several days the edema has been getting worse. She is taking 2 different types of diuretic therapy. She feels there has been no improvement. Patient reports increasing shortness of breath. She denies any chest pain, lightheadedness or syncope. Patient with history of CHF , COPD, diabetes, chronic renal disease, hypertension, CAD, peripheral vascular disease. In the ER patient was evaluated. Vital signs stable. Hemoglobin 10, white count 8.1, BUN of 50, creatinine 2.2 with a GFR 23. BNP was elevated at 9086. Troponin 0.02. Chest x-ray showed mild volume overload. The patient will be admitted for CHF exacerbation. When I saw the patient ER, she appeared stable. No complaints noted. Allergies morphine Allergy (Severe, Verified 07/29/17 03:02) Anaphylaxis amoxicillin [From Augmentin] Allergy (Verified 07/29/17 03:02) Unknown basil Allergy (Verified 07/29/17 03:02) Unknown clavulanic acid [From Augmentin] Allergy (Verified 07/29/17 03:02) Unknown trazodone Allergy (Verified 07/29/17 03:02) Unknown vancomycin Allergy (Verified 07/29/17 03:02) Unknown nitroglycerin Adverse Reaction (Mild, Verified 07/29/17 03:02) Nausea/Vomiting tramadol Adverse Reaction (Mild, Verified 07/29/17 03:02) Nausea/Vomiting Tramadol HCl Allergy (Uncoded 07/29/17 03:02) Unknown Home medications list reviewed: Yes Home Medications: Aspirin Tab [Supa Aspirin*] 81 mg PO DAILY 04/28/15 Clopidogrel Bisulfate [Plavix] 75 mg PO DAILY 04/28/15 Insulin Detemir [Levemir Flextouch] 5 unit SQ DAILY 04/28/15 Atorvastatin Calcium [Lipitor] 40 mg PO DAILY 02/03/17 Codeine/APAP [Tylenol #3*] 1 tab PO Q8H PRN 02/03/17 Gabapentin [Neurontin*] 100 mg PO TID 02/03/17 Carvedilol 1 tab PO BID 07/29/17 Collagenase [Santyl Ointment*] 1 dose TOP DAILY 07/29/17 Fluticasone [Flovent Hfa 110*] 1 puff IH BID 07/29/17 Hydralazine HCl [Apresoline] 50 mg PO Q8HR 07/29/17 Ipratropium/Albuterol Sulfate [Combivent Respimat 20-100 Mcg] 2 puff IH Q6HR 04/17 Melatonin 10 mg PO BEDTIME PRN 07/29/17 Nicotine [Nicotine Patch] 1 each TD DAILY 07/29/17 Diphenox/Atropine [Lomotil*] 1 tab PO QID PRN 2 Days #6 tab 07/31/17 - Past Medical/Surgical History Diabetic: Yes -: COPD, former tobacco use -: HTN -: CAD, CABG x4 vessels -: Diabetes mellitus type 2 -: CHF, systolic -: Uterine cancer status post hysterectomy -: Obstructive sleep apnea -: GERD -: Hyperlipidemia -: Chronic renal disease -: Amputation left great toe -: Anemia -: Rectal surgery -: Hysterectomy -: Cholecystectomy -: Gastric surgery -: Appendectomy -: CABG x4 vessel -: Femoral popliteal bypass -: Left great toe amputation Psychosocial/ Personal History: The patient is a . Her son lives with her. She has 3 children. - Family History Father -: Heart disease, Hypertension, Stroke, Cancer Mother -: GI disease Sister -: Lung disease, Diabetes Brother -: Heart disease, Hypertension, Stroke - Social History Smoking Status: Former smoker Alcohol use: No CD- Drugs: No Caffeine use: Yes Place of Residence: Home Review of Systems General: As per HPI Eyes: Unremarkable ENT: Unremarkable Respiratory: Shortness of Breath, As per HPI Cardiovascular: Edema, As per HPI Gastrointestinal: Unremarkable Genitourinary: Unremarkable Musculoskeletal: Pedal edema, As per HPI Integumentary: As per HPI Neurological: Unremarkable Lymphatics: Unremarkable Physical Examination - Physical Exam General: Alert, In no apparent distress, Oriented x3, Cooperative HEENT: Atraumatic, Normocephalic, Mucous membr. moist/pink Neck: Supple, No Thyromegaly Respiratory: Crackles/rales (Crackles to the bases bilateral) Cardiovascular: Normal pulses, Regular rate/rhythm Gastrointestinal: Normal bowel sounds, Soft and benign, Non-distended, No tenderness, No masses, No rebound, No guarding Musculoskeletal: No tenderness, No warmth Integumentary: Tenderness/swelling (2+ pitting edema to the lower extremities bilateral up to the thigh region. Left great toe amputation. The right lower extremity surgical scar.) Neurological: Normal speech, Normal strength at 5/5 x4 extr, Normal tone, Normal affect - Studies Laboratory Data (last 24 hrs) 10/02/17 17:00: PT 12.0, INR 1.02 10/02/17 17:00: WBC 8.1, Hgb 10.0 L, Hct 31.3 L, Plt Count 256 10/02/17 17:00: Sodium 139, Potassium 4.7, BUN 50 H, Creatinine 2.20 H, Glucose 264 H, Magnesium 2.5 H, Total Bilirubin 0.3, AST 25, ALT 35, Alkaline Phosphatase 181 H Assessment and Plan - Problems (Diagnosis) (1) Shortness of breath Current Visit: Yes Status: Acute Plan: Shortness of breath secondary to CHF exacerbation likely systolic dysfunction. Will check echocardiogram. Will start Lasix 40 mg IV b.i.d.. Will place on a fluid restriction. Will consult cardiology and nephrology. Will continue monitor closely. Will recheck chest x-ray in the morning. Wean off oxygen. (2) Anasarca Current Visit: Yes Status: Acute Plan: Continue diuretic therapy. Will place on a fluid restriction. Will monitor and adjust medication. (3) Chronic renal disease Current Visit: Yes Status: Acute Plan: Patient with acute on chronic renal disease. Will consult Nephrology. Will monitor and adjust medication. Qualifiers: Chronic kidney disease stage: stage 3 (moderate) Qualified Code(s): N18.3 - Chronic kidney disease, stage 3 (moderate) (4) Diabetes mellitus Current Visit: Yes Status: Chronic Plan: Will check A1c. Will start basal insulin. Will monitor and adjust medication. Qualifiers: Diabetes mellitus type: type 2 Diabetes mellitus watermaster insulin use: with [facility] use Diabetes mellitus complication status: with other specified complication Qualified Code(s): E11.69 - Type 2 diabetes mellitus with other specified complication; Z79.4 - assisted (current) use of insulin (5) Hyperlipidemia Current Visit: Yes Status: Chronic Plan: Will check fasting lipid panel. Will start statin medication. Qualifiers: Hyperlipidemia type: unspecified Qualified Code(s): E78.5 - Hyperlipidemia , unspecified (6) CAD (coronary artery disease) Current Visit: Yes Status: Chronic Plan: Patient with history of CABG x4 vessel done in May of 2017. Will continue with aspirin and Plavix. Will place on DVT prophylaxis. (7) Peripheral vascular disease Current Visit: Yes Status: Chronic Plan: Patient with recent femoral popliteal bypass in July of 2017. Will continue with medication. (8) History of coronary artery bypass graft Current Visit: Yes Status: Chronic Plan: History of CABG x4 vessels in May. Will continue as above. (9) History of femoropopliteal bypass Current Visit: Yes Status: Chronic Plan: Patient had femoral popliteal bypass on the right side in July of 2017. Will continue as above. (10) Anemia Current Visit: Yes Status: Chronic Plan: Will check iron and B12 studies. Will monitor hemoglobin. Likely of chronic disease. Qualifiers: Anemia type: due to chronic kidney disease Chronic kidney disease stage: stage 3 (moderate) Qualified Code(s): N18.3 - Chronic kidney disease, stage 3 (moderate); D63.1 - Anemia in chronic kidney disease (11) GERD (gastroesophageal reflux disease) Current Visit: Yes Status: Chronic Plan: Will continue PPI. Qualifiers: Esophagitis presence: esophagitis presence not specified Qualified Code(s) : K21.9 - Gastro-esophageal reflux disease without esophagitis (12) Diabetic neuropathy Current Visit: Yes Status: Chronic Plan: Will continue with Neurontin. Qualifiers: Diabetes mellitus type: type 2 Diabetes mellitus complication detail: diabetic polyneuropathy Qualified Code(s): E11.42 - Type 2 diabetes mellitus with diabetic polyneuropathy (13) Hypertension Current Visit: No Status: Chronic Plan: Will obtain home medication and restart. Qualifiers: Hypertension type: essential hypertension Qualified Code(s): I10 - Essential (primary) hypertension (14) CHF (congestive heart failure) Onset Date: 04/28/15 Current Visit: No Status: Acute Plan: Acute on chronic systolic CHF. Continue as above. Echocardiogram ordered. Cardiology consulted. Continue fluid restriction and IV Lasix. Qualifiers: Heart failure type: systolic Heart failure chronicity: acute on chronic Qualified Code(s): I50.23 - Acute on chronic systolic (congestive) heart failure (15) COPD (chronic obstructive pulmonary disease) Onset Date: 02/04/17 Current Visit: No Status: Chronic Plan: Will continue with her COPD medication. Qualifiers: COPD type: chronic bronchitis Chronic bronchitis type: unspecified Qualified Code(s): J42 - Unspecified chronic bronchitis Discharge Plan: Home Plan to discharge in: Greater than 2 days - Advance Directives Does patient have a Living Will: No Does patient have a Durable POA for Healthcare: Yes - Code Status/Comfort Care Code Status Assessed: Yes (Patient full code.) Time Spent Managing Pts Care (In Minutes): 55
--- NOTE | 2017-10-02 18:43 | EKG ---
Test Date: 2017-10-02 Test Time: 16:39:00 Employment Training Specialist: CYNTHIA MEASUREMENT RESULTS: Intervals: Rate: 66 WA: 168 QRSD: 100 QT: 452 QTc: 473 Alexander: P: 75 WA: 168 QRS: 48 T: 139 INTERPRETIVE STATEMENTS: Normal sinus rhythm Possible Left atrial enlargement Anterior infarct, age undetermined ST & T wave abnormality, consider lateral ischemia Abnormal ECG Compared to ECG 07/28/2017 19:52:53 No significant changes Electronically Signed On 10-02-17 18:42:55 CDT by Alvaro Go
[2017-10-02] MEDS ORDERED: NICOTINE 21 MG/PAT TD ONE (19:19)
[2017-10-02 19:32] LABS: Urine Blood NEGATIVE (NEG); Urine Glucose 1+ (NEG); Urine Protein 3+ (NEG); Urine pH 5.5 (5.0-7.0)
--- NOTE | 2017-10-02 20:07 | RAD REPORT ---
EXAM DESCRIPTION: VAS - Extrem Venous W Compress René - 10/02/2017 7:04 pm CLINICAL HISTORY: Leg pain and swelling. Preliminary findings provided at the time of the study. COMPARISON: None. TECHNIQUE: Real-time sonographic evaluation of the bilateral lower extremity deep venous systems was performed. FINDINGS: Normal compressibility, flow augmentation, phasic flow and spontaneous flow are identified in the left and right lower extremity common femoral, superficial femoral and popliteal veins. Deep veins at the ankle also clear of thrombus. . Interstitial edema changes are present with no abscess o r drainable fluid collection. IMPRESSION: No DVT in either lower extremity.
[2017-10-02] MEDS: ARFORMOTEROL TARTRATE 15 MCG/2 ML VIAL.NEB NEB SCH (20:50)
[2017-10-02] MEDS ORDERED: METOPROLOL TAR 50 MG TAB PO SCH (21:00)
[2017-10-02] MEDS: INSULIN -REGULAR HUMAN 50 UNIT/0.5 ML ML SQ SCH (21:00)
[2017-10-02] MEDS ORDERED: ATORVASTATIN 80 MG TAB PO SCH (21:00)
[2017-10-02] MEDS ORDERED: HYDRALAZINE HCL 25 MG TABLET PO SCH (21:00)
[2017-10-02] MEDS: PANTOPRAZOLE 40MG TABLET PO SCH (21:49)
[2017-10-02] MEDS: INSULIN DETEMIR 100 UNIT/1 ML INSULIN SQ SCH (21:49)
[2017-10-02] MEDS: ENOXAPARIN 30 MG/0.3 ML SQ SCH (21:49)
[2017-10-02] MEDS: MELATONIN 5 MG TABLET PO PRN (23:09)
[2017-10-02] MEDS: CODEINE 30MG/APAP 300MG TAB PO PRN (23:09)
[2017-10-02] MEDS: GABAPENTIN 300 MG CAP PO SCH (23:09)
[2017-10-03 01:46] LABS: CKMB Creatine Kinase MB 4.4 ng/mL (0.3-3.6)
[2017-10-03 04:55] LABS: Absolute Monocytes 0.5 K/uL (0.1-1.3); Absolute Neutrophil 3.5 K/uL (1.8-8.0); Eosinophils % 4.1 % (0-4.4); Hematocrit 27.9 % (36.0-45.0); Lymphocytes % 41.2 % (15.3-44.8); MCH 25.9 pg (27.0-35.0); MCV 79.1 fL (80-100); MPV 7.8 fL (7.6-11.3); Monocytes % 6.3 % (3.3-12.3); RBC Red Blood Cell Count 3.52 M/uL (3.86-4.86)
[2017-10-03 05:41] LABS: Ferritin 38.3 ng/mL (8-388); Magnesium 2.3 mg/dL (1.8-2.4); Potassium 4.5 mmol/L (3.5-5.1)
[2017-10-03 05:47] LABS: Thyroid Stimulating Hormone 6.86 uIU/mL (0.36-3.74)
[2017-10-03] MEDS: CODEINE 30MG/APAP 300MG TAB PO PRN ×2 (06:18→13:48)
[2017-10-03] MEDS: INSULIN -REGULAR HUMAN 50 UNIT/0.5 ML ML SQ SCH ×4 (07:30→21:42)
--- NOTE | 2017-10-03 08:01 | CON ---
History Of Present Illness: Ms. Priest came to the hospital with dyspnea. She was found to have pulmo nary edema, and now, she appears to be feeling better. The main treatment she has had overnight seem s to have helped her diuresis. She recently had coronary bypass surgery. For that, she had a stent in the coronary artery. She also had a fem-pop bypass on the right in July. Ms. Priest in the past has had normal or borderline low ejection fraction. We do not have any measurement of her ejection frac tion following her recent bypass surgery, so that is something that should be done. She has a histor y of tobacco use, but she has quit, and she has a history of congestive heart failure, hypertension, COPD, coronary heart disease, and diabetes. Medications: Outpatient medications have been aspirin, insulin, Plavix, atorvastatin, gabapentin, co deine, Coreg, hydralazine, albuterol, Atrovent, nicotine patch, and melatonin. An echocardiogram is ordered for later today. I think the patient needs to try better to do sodium restriction and to be on an outpatient dose of L asix every day. She is presently getting IV. We can probably switch that to oral tomorrow and possi ble transfer or discharge her tomorrow. Allergies: SHE IS ALLERGIC TO MORPHINE, AMOXICILLIN, CLAVULANIC ACID, TRAZODONE. Social History: She no longer uses tobacco. Physical Examination: Vital Signs: 5 feet 7 inches, 179 pounds. General: Alert, oriented, pleasant, not in distress. Blood pressure 165/96. Lungs: Do not reveal wheezes or crackles. Heart: S4 gallop. Regular rate and rhythm. Abdomen: Soft. Extremities: 1 to 2+ edema. I think with more diuresis, the patient will be doing fine, possibly be ready to be discharged tomorr ow. ENRICO/CELESTINE Voice ID: [id number] Report ID: [id number]
--- NOTE | 2017-10-03 08:02 | P.PN ---
Subjective Date of Service: 10/03/17 Primary Care Provider: Dr. Rendon([facility]) Chief Complaint: Shortness of breath, edema Subjective: Improving (Edema to the lower extremities improved.) Physical Examination - Vital Signs Temperature: 97.0 F Blood Pressure: 165/96 Pulse: 56 Respirations: 18 Pulse Ox (%): 96 - Physical Exam General: Alert, In no apparent distress, Oriented x3, Cooperative HEENT: Atraumatic Neck: Supple Respiratory: Clear to auscultation bilaterally, Normal air movement Cardiovascular: Normal pulses, Regular rate/rhythm Gastrointestinal: Normal bowel sounds, Soft and benign, Non-distended, No tenderness, No masses, No rebound, No guarding Musculoskeletal: No erythema, No tenderness, No warmth Integumentary: Tenderness/swelling (Edema to the lower extremities significantly improved. Patient still with about 1+ pitting edema) Neurological: Normal speech, Normal strength at 5/5 x4 extr, Normal tone, Normal affect - Studies Laboratory Data (last 24 hrs) 10/02/17 17:00: PT 12.0, INR 1.02 10/02/17 17:00: WBC 8.1, Hgb 10.0 L, Hct 31.3 L, Plt Count 256 10/02/17 17:00: Sodium 139, Potassium 4.7, BUN 50 H, Creatinine 2.20 H, Glucose 264 H, Magnesium 2.5 H, Total Bilirubin 0.3, AST 25, ALT 35, Alkaline Phosphatase 181 H Medications List Reviewed: Yes Assessment & Plan - Problems (Diagnosis) (1) Shortness of breath Current Visit: Yes Status: Acute Plan: Shortness of breath secondary to CHF exacerbation likely systolic dysfunction. Await echocardiogram. Will continue with IV Lasix 40 mg b.i.d.. Continue fluid restriction. Edema to the lower extremities has significantly improved. Will wean off oxygen. Cardiology and Nephrology consulted. Anticipate discharge in the next 1-2 days. Encourage ambulation. I will turn the service over to Dr. Kuhn whole will help cover. I will go over the plan of care with him. (2) Anasarca Current Visit: Yes Status: Acute Plan: Continue diuretic therapy and fluid restriction. Edema to the lower extremity has significantly improved. (3) Chronic renal disease Current Visit: Yes Status: Acute Plan: Patient with acute on chronic renal disease. Nephrology consulted. Slight improvement. Will monitor closely. Qualifiers: Chronic kidney disease stage: stage 3 (moderate) Qualified Code(s): N18.3 - Chronic kidney disease, stage 3 (moderate) (4) Diabetes mellitus Current Visit: Yes Status: Chronic Plan: A1c 8.8. Will continue with her basal insulin. Will monitor and adjust appropriately. Qualifiers: Diabetes mellitus type: type 2 Diabetes mellitus longterm insulin use: with adjunct faculty for medical terminology use Diabetes mellitus complication status: with other specified complication Qualified Code(s): E11.69 - Type 2 diabetes mellitus with other specified complication; Z79.4 - prison (current) use of insulin (5) Hyperlipidemia Current Visit: Yes Status: Chronic Plan: Lipid panel well controlled. Will adjust statin medication. Qualifiers: Hyperlipidemia type: unspecified Qualified Code(s): E78.5 - Hyperlipidemia , unspecified (6) CAD (coronary artery disease) Current Visit: Yes Status: Chronic Plan: Patient with history of CABG x4 vessel done in May of 2017. Will continue with aspirin and Plavix. Will place on DVT prophylaxis. (7) Peripheral vascular disease Current Visit: Yes Status: Chronic Plan: Patient with recent femoral popliteal bypass in July of 2017. Will continue with medication. (8) History of coronary artery bypass graft Current Visit: Yes Status: Chronic Plan: History of CABG x4 vessels in May. Will continue as above. (9) History of femoropopliteal bypass Current Visit: Yes Status: Chronic Plan: Patient had femoral popliteal bypass on the right side in July of 2017. Will continue as above. (10) Anemia Current Visit: Yes Status: Chronic Plan: Patient with iron and B12 deficiency. Will continue with supplementation. Will monitor closely. Qualifiers: Anemia type: due to chronic kidney disease Chronic kidney disease stage: stage 3 (moderate) Qualified Code(s): N18.3 - Chronic kidney disease, stage 3 (moderate); D63.1 - Anemia in chronic kidney disease (11) GERD (gastroesophageal reflux disease) Current Visit: Yes Status: Chronic Plan: Will continue PPI. Qualifiers: Esophagitis presence: esophagitis presence not specified Qualified Code(s) : K21.9 - Gastro-esophageal reflux disease without esophagitis (12) Diabetic neuropathy Current Visit: Yes Status: Chronic Plan: Will continue with Neurontin. Qualifiers: Diabetes mellitus type: type 2 Diabetes mellitus complication detail: diabetic polyneuropathy Qualified Code(s): E11.42 - Type 2 diabetes mellitus with diabetic polyneuropathy (13) Hypertension Current Visit: No Status: Chronic Plan: Will continue with medication. Will monitor and adjust appropriately. Qualifiers: Hypertension type: essential hypertension Qualified Code(s): I10 - Essential (primary) hypertension (14) CHF (congestive heart failure) Onset Date: 04/28/15 Current Visit: No Status: Acute Plan: Acute on chronic systolic CHF. Continue as above. Echocardiogram ordered. Cardiology consulted. Continue fluid restriction and IV Lasix. Patient improved. Will wean off oxygen. Qualifiers: Heart failure type: systolic Heart failure chronicity: acute on chronic Qualified Code(s): I50.23 - Acute on chronic systolic (congestive) heart failure (15) COPD (chronic obstructive pulmonary disease) Onset Date: 02/04/17 Current Visit: No Status: Chronic Plan: Will continue with her COPD medication. Qualifiers: COPD type: chronic bronchitis Chronic bronchitis type: unspecified Qualified Code(s): J42 - Unspecified chronic bronchitis Discharge Plan: Home Plan to discharge in: 48 Hours Time Spent Managing Pts Care (In Minutes): 55
[2017-10-03] MEDS: ENOXAPARIN 30 MG/0.3 ML SQ SCH (08:20)
[2017-10-03] MEDS: PANTOPRAZOLE 40MG TABLET PO SCH (08:20)
[2017-10-03] MEDS: CLOPIDOGREL 75 MG TABLET PO SCH (08:21)
[2017-10-03] MEDS: FUROSEMIDE 40 MG/4 ML VIAL IV SCH ×2 (08:21→16:18)
[2017-10-03] MEDS: ASPIRIN EC 81 MG TAB PO SCH (08:21)
[2017-10-03] MEDS: FERROUS SULFATE 325 MG TAB PO SCH ×2 (08:37→20:31)
[2017-10-03] MEDS: ARFORMOTEROL TARTRATE 15 MCG/2 ML VIAL.NEB NEB SCH ×2 (08:43→20:05)
--- NOTE | 2017-10-03 08:51 | RAD REPORT ---
EXAM DESCRIPTION: RAD - Chest Pa And Lat (2 Views) - 10/03/2017 6:50 am CLINICAL HISTORY: Follow up CHF Chest pain. COMPARISON: Chest Single View dated 10/02/2017; Chest Single View dated 07/28/2017; Chest Single View d ated 04/21/2017; Chest Pa And Lat (2 Views) dated 02/04/2017Chest Single View dated 10/02/2017; Chest Sin gle View dated 07/28/2017; Chest Single View dated 04/21/2017; Chest Pa And Lat (2 Views) dated 02/05/20 17; Chest Single View dated 02/03/2017 FINDINGS: Ill-defined opacity is present in the right lung base with a small right pleural effusion, suspicious for mild infiltrate/pneumonia. Linear areas of atelectasis are seen bilaterally. The hear t is mildly enlarged in size with sternotomy wires present. IMPRESSION: Mild right lower lobe pneumonia suspected with small right pleural effusion.
[2017-10-03] MEDS ORDERED: HYDRALAZINE HCL 25 MG TABLET PO SCH (09:00)
[2017-10-03] MEDS: ISOSORBIDE MONO SR 30 MG TAB PO SCH (09:30)
[2017-10-03] MEDS: GABAPENTIN 100 MG CAP PO PRN ×2 (09:34→13:45)
[2017-10-03 09:57] LABS: CKMB Creatine Kinase MB 3.8 ng/mL (0.3-3.6)
--- NOTE | 2017-10-03 13:18 | ECHO ---
HEIGHT: 5 ft 7 in WEIGHT: 179 lb 11.2 oz DATE OF STUDY: 10/03/[address]: Nimesh Barreto DO 2-DIMENSIONAL: YES M.MODE: YES DOPPLER: YES COLOR FLOW: YES TDS: PORTABLE: DEFINITY: BUBBLE STUDY: DIAGNOSIS: CONGESTIVE HEART FAILURE, CORONAR ARTERY DISEASE, HYPERTENSION CARDIAC HISTORY: CATHERIZATION: YES SURGERY: YES PROSTHETIC VALVE: NO PACEMAKER: NO MEASUREMENTS (cm) DIASTOLIC (NORMALS) SYSTOLIC (NORMALS) IVSd 1.5 (0.6-1.2) LA Diam 4.8 (1.9-4.0) LVEF 59% LVIDd 4.2 (3.5-5.7) LVIDs 2.9 (2.0-3.5) %FS 31% LVPWd 1.4 (0.6-1.2) Ao Diam 3.0 (2.0-3.7) 2 DIMENSIONAL ASSESSMENT: RIGHT ATRIUM: NORMAL LEFT ATRIUM: DILATED RIGHT VENTRICLE: NORMAL LEFT VENTRICLE: LEFT VENTRICULAR HYPERTROPHY TRICUSPID VALVE: NORMAL MITRAL VALVE: NORMAL PULMONIC VALVE: NORMAL AORTIC VALVE: SCLEROSIS PERICARDIAL EFFUSION: NONE AORTIC ROOT: NORMAL LEFT VENTRICULAR WALL MOTION: NORMAL DOPPLER/COLOR FLOW: NO AORTIC STENOSIS OR AORTIC REGURGITATION. MILD MITRAL AND TRICUSPID REGURGITATION. NORMAL RIGHT VENTRICULAR SYSTOLIC PRESSURE. COMMENTS: NORMLA LEFT VENTRICULAR EJECTION FRACTION. DILATED LEFT ATRIUM. LEFT VENTRICULAR HYPERTROPHY. AORTIC SCLEROSIS WITH NO AORTIC STENOSIS OR AORTIC REGURGITATION. MILD MITRAL AND TRICUSPID REGURGITATION. TECHNOLOGIST: Donald VENTURA
[2017-10-03] MEDS: HYDRALAZINE HCL 25 MG TABLET PO SCH ×2 (17:03→20:30)
[2017-10-03] MEDS: CARVEDILOL 12.5 MG TAB PO SCH (17:40)
[2017-10-03] MEDS: NIFEDIPINE XL 60 MG TABLET PO SCH (18:52)
[2017-10-03] MEDS: GABAPENTIN 300 MG CAP PO SCH (20:31)
[2017-10-03] MEDS ORDERED: GABAPENTIN 100 MG CAP PO SCH (21:00)
[2017-10-03] MEDS ORDERED: ATORVASTATIN 40 MG TAB PO SCH (21:00)
[2017-10-03] MEDS: MELATONIN 5 MG TABLET PO PRN (21:41)
[2017-10-03] MEDS: INSULIN DETEMIR 100 UNIT/1 ML INSULIN SQ SCH (21:41)
--- NOTE | 2017-10-03 23:26 | CON ---
Date of Consultation: 10/03/2017 Chief Complaint: Fluid overload, anasarca, shortness of breath. History Of Present Illness: The patient has multiple medical problems including history of coronary artery disease, status post CABG; peripheral vascular disease. She has been treated with diuretics for congestive heart failure with fluid overload. She presented to the hospital because of worsening of the peripheral edema, shortness of breath, and chest discomfort. The patient has history of congestive heart failure, COPD, diabetic chronic kidney disease, hypertension, and hypertensive kidney disease. The patient was evaluated in the emergency room and was found to have white count of 8.1, BUN 50 , creatinine 2.2. BNP was elevated up to 9096. Troponin 0.2. Chest x-ray showed mild fluid overload. The patient is admitted to the hospital because of CHF exacerbation. The patient has underlying chronic kidney disease, prerenal azotemia, nonoliguric, acute kidney injury on chronic kidney disease, and is started on diuretics for cardiorenal syndrome. The patient developed accelerated hypertension. Renal ultrasound with renal artery Doppler is pending to evaluate for possible renal artery stenosis. The patient is taking hydralazine for congestive heart failure along with diuretics and carvedilol. Review of Systems: Constitutional: Complains of generalized weakness Eyes: Denies vision changes. Ears, Nose, Mouth, and Throat: Denies sore throat or earache. Respiratory: Denies PND or orthopnea. Cardiovascular: Denies chest pain or palpitation. GI: Denies nausea or vomiting. : Denies dysuria or hematuria. Musculoskeletal: Complaining of generalized weakness and swelling from the arms and legs and some chest discomfort and difficulty with ambulation because of dyspnea. All other systems reviewed and all are negative. Past Medical History: COPD; former tobacco smoker; hypertension; coronary artery disease, status post CABG, 4-vessel disease; congestive heart failure, systolic dysfunction; uterine cancer, status post hysterectomy; obstructive sleep apnea; GERD; hyperlipidemia; chronic kidney disease stage 3; amputation of the left great toe; rectal surgery; anemia; hysterectomy; cholecystectomy; gastric surgery; appendectomy; femoral popliteal bypass; CABG; and left great toe amputation. Social History: Denies tobacco, alcohol, or illicit drugs. Family History: No kidney disease in the family. Physical Examination: General: The patient is not in acute distress Eyes: Anicteric sclerae. EOMI. Ears, Nose, Mouth, and Throat: Oral mucosa moist. No pallor. Neck: Supple. No bruits. Lungs: Diminished breath sounds at bases. Crackles bilaterally present. Heart: S1, S2. No pericardial friction rub. Abdomen: Obese, soft, nontender. No rebound. No guarding. No flank tenderness. Extremities: Edema present in the upper and lower extremities. Neurological: Moving extremities. Cranial nerves intact. Psychiatric: Alert and oriented x3. Normal affect. Laboratory Data: BUN 50, creatinine 2.20, glucose 264, magnesium 2.5, sodium 139, potassium 4.7. Hemoglobin 10.0, WBC 8.1, platelet count is 256,000. Impression And Plan: 1. Dyspnea; secondary to congestive heart failure, acute on chronic with systolic dysfunction. Continue diuretics, low-sodium diet. Check daily weight and fluid balance. 2. Anasarca; due to fluid overload. Increase Lasix as needed. 3. Chronic kidney disease; due to diabetes mellitus and hypertensive kidney disease. Monitor proteinuria. 4. Diabetes mellitus. Continue insulin. 5. Hyperlipidemia. The patient will continue low-cholesterol and low-fat diet. Continue statin. JONNY/CELESTINE Voice ID: [id number] Report ID: [id number] AZUCENA
[2017-10-04] MEDS: CODEINE 30MG/APAP 300MG TAB PO PRN (04:43)
[2017-10-04] MEDS: CARVEDILOL 12.5 MG TAB PO SCH (04:47)
[2017-10-04 04:50] LABS: Absolute Monocytes 0.3 K/uL (0.1-1.3); Absolute Neutrophil 3.1 K/uL (1.8-8.0); Basophils % 1.7 % (0-1.3); Eosinophils % 4.4 % (0-4.4); Hematocrit 30.4 % (36.0-45.0); Lymphocytes % 44.3 % (15.3-44.8); MCH 25.6 pg (27.0-35.0); MCV 77.9 fL (80-100); MPV 7.5 fL (7.6-11.3); Monocytes % 4.8 % (3.3-12.3)
[2017-10-04 04:59] LABS: Magnesium 2.1 mg/dL (1.8-2.4); Potassium 4.6 mmol/L (3.5-5.1)
[2017-10-04 06:38] VITALS: BMI 27.5
[2017-10-04] MEDS: INSULIN -REGULAR HUMAN 50 UNIT/0.5 ML ML SQ SCH ×2 (07:30→11:21)
[2017-10-04] MEDS: PANTOPRAZOLE 40MG TABLET PO SCH (08:31)
[2017-10-04] MEDS: HYDRALAZINE HCL 25 MG TABLET PO SCH (08:31)
[2017-10-04] MEDS: FERROUS SULFATE 325 MG TAB PO SCH (08:32)
[2017-10-04] MEDS: ASPIRIN EC 81 MG TAB PO SCH (08:32)
[2017-10-04] MEDS: NIFEDIPINE XL 60 MG TABLET PO SCH (08:32)
[2017-10-04] MEDS: FUROSEMIDE 40 MG/4 ML VIAL IV SCH (08:32)
[2017-10-04] MEDS: CLOPIDOGREL 75 MG TABLET PO SCH (08:32)
[2017-10-04] MEDS: ISOSORBIDE MONO SR 30 MG TAB PO SCH (08:32)
[2017-10-04] MEDS: ENOXAPARIN 30 MG/0.3 ML SQ SCH (08:33)
[2017-10-04] MEDS: ARFORMOTEROL TARTRATE 15 MCG/2 ML VIAL.NEB NEB SCH (09:12)
--- NOTE | 2017-10-04 09:56 | P.DS ---
Admission Date: 10/02/17 Discharge Date: 10/04/17 Primary Care Provider: Dr. Rendon([facility] Disposition: ROUTINE DISCHARGE Discharge Condition: FAIR Reason for Admission: Shortness of breath, edema Consultations: Dr. Go and doctor Brief History of Present Illness: patient is 62 years of age admitted with worsening lower extremity edema Hospital Course: Patient was admitted to the hospital aggressively diuresed at the time of discharge doing much better echocardiogram normal left ventricular function BNP was over 9000 significantly elevated in addition patient has chronic renal insufficiency history of COPD and coronary artery disease patient has a mild microcytic anemia no evidence of sepsis At the time of discharge patient was doing well alert oriented responsive cooperative vital signs all reviewed stable chest clear cardiovascular system os was normal abdomen soft extremities 1+ edema she probably has underlying mild iron-deficiency anemia at the need to be worked up tsh she was also mildly elevated free T4 is normal. follow up with Nephrology in a primary care physician poly need to be referred to a GI specialist for of workup she is taking IN at home and is also on a torsemide Vital Signs/Physical Exam: Temp Pulse Resp BP Pulse Ox 98.0 F 55 18 152/68 H 93 10/04/17 07:57 10/04/17 08:32 10/04/17 07:57 10/04/17 08:32 10/04/17 07:57 Laboratory Data at Discharge: WBC 6.8 K/uL (4.3-10.9) 10/04/17 04:27 Hgb 10.0 g/dL (12.0-15.0) L 10/04/17 04:27 Hct 30.4 % (36.0-45.0) L 10/04/17 04:27 Plt Count 234 K/uL (152-406) 10/04/17 04:27 PT 12.0 SECONDS (9.5-12.5) 10/02/17 17:00 INR 1.02 10/02/17 17:00 Sodium 142 mmol/L (136-145) 10/04/17 04:27 Potassium 4.6 mmol/L (3.5-5.1) 10/04/17 04:27 BUN 44 mg/dL (7-18) H 10/04/17 04:27 Creatinine 1.70 mg/dL (0.55-1.3) H 10/04/17 04:27 Glucose 99 mg/dL (74-106) 10/04/17 04:27 Magnesium 2.1 mg/dL (1.8-2.4) 10/04/17 04:27 Total Bilirubin 0.3 mg/dL (0.2-1.0) 10/02/17 17:00 AST 25 U/L (15-37) 10/02/17 17:00 ALT 35 U/L (12-78) 10/02/17 17:00 Alkaline Phosphatase 181 U/L (45-117) H 10/02/17 17:00 Troponin I 0.02 ng/mL (0.0-0.045) 10/03/17 09:10 Triglycerides 84 mg/dL (<150) 10/03/17 03:54 Cholesterol 87 mg/dL (<200) 10/03/17 03:54 HDL Cholesterol 41 mg/dL (40-60) 10/03/17 03:54 Cholesterol/HDL Ratio 2.12 10/03/17 03:54 Home Medications: Clopidogrel Bisulfate [Plavix] 75 mg PO DAILY 04/28/15 Insulin Detemir [Levemir Flextouch] 10 unit SQ DAILY 04/28/15 Atorvastatin Calcium [Lipitor] 40 mg PO DAILY 02/03/17 Gabapentin [Neurontin*] 100 mg PO BIDL 02/03/17 Carvedilol 1 tab PO DAILY 07/29/17 Ferrous Sulfate 325 mg PO BID 10/02/17 Gabapentin [Neurontin*] 300 mg PO BEDTIME 10/02/17 Isosorbide Mononitrate [Isosorbide Mononitrate ER] 30 mg PO DAILY 10/02/17 Magnesium Oxide [Magnesium] 400 mg PO DAILY 10/02/17 Torsemide [Demadex*] 2 tab PO BID 10/02/17 Aspirin 81 mg PO DAILY 10/03/17 Ferrous Sulfate [Feosol] 325 mg PO BID 10/03/17 Fluticasone [Flovent Hfa 110*] 2 sprays IH DAILY 10/03/17 Hydralazine HCl [Apresoline] 50 mg PO Q8HR 10/03/17 Ipratropium/Albuterol Sulfate [Combivent Respimat 20-100 Mcg] 4 gm IH BID Melatonin 10 mg PO DAILY 10/03/17 Nifedipine [Nifedipine ER] 60 mg PO DAILY 10/03/17
--- NOTE | 2017-10-04 11:10 | PN ---
Ms. Priest is doing better. Her creatinine is 1.7. She has lost a significant amount of fluid and rosalia ma. She is not having pain or respiratory difficulty. Afebrile. Her blood pressure tends to get el evated at certain times of the day. I think it might be [place] for us to either increase the amount of nifedipine or probably a better solution would be add an angiotensin receptor gina. Nephrology i s also seeing the patient or will so, I let them decide whether an angiotensin receptor gina would be acceptable. Her creatinine was 2.2 when she came in and with diuresis it went down, so I am thin bradley most likely an angiotensin receptor gina would be beneficial. ENRICO/CELESTINE Voice ID: [id number] Report ID: [id number]
[2017-10-04 11:59] VITALS: BP 160/67; TEMP 99
--- NOTE | 2017-10-04 12:09 | RAD REPORT ---
EXAM DESCRIPTION: US - Renal Ultrasound-Complete - 10/04/2017 11:45 am CLINICAL HISTORY: . Renal failure COMPARISON: August 2016 FINDINGS: The right kidney measures 13 cm with an increased echotexture. The left kidney measures 12 cm with an increased echotexture. Hydronephrosis is not seen. No gross abnormality of the bladder is noted IMPRESSION: Increased renal echotexture consistent with parenchymal disease.
[2017-10-04] MEDS ORDERED: HYDRALAZINE HCL 25 MG TABLET PO SCH (13:00)
[2017-10-04 14:11] VITALS: O2SAT 94
[2017-10-04] MEDS ORDERED: NICOTINE 21 MG/PAT TD SCH (20:05)
--- NOTE | 2017-10-05 01:42 | PN ---
Date of Progress Note: 10/04/2017 Chief Complaint: Fluid overload, anasarca, shortness of breath, chronic kidney disease, cardiorenal syndrome, and prerenal azotemia. History Of Present Illness: On arrival to the hospital, the patient was found to have BUN of 50, creatinine 2.2. The patient has chronic kidney disease, stage 3, advancing to stage 4. The patient was found to have prerenal azotemia , nonoliguric, associated with fluid overload. She was started on diuretics. Primarily, she was taking p.o. Demadex and over the last several days prior to this admission she developed progressively worse shortness of breath, chest discomfort, and leg edema. The patient has history of COPD, congestive heart failure with systolic and diastolic dysfunction. The patient is feeling better today, although blood pressure is elevated. Yesterday, hydralazine dose was increased to 50 mg every 8 hours. Systolic blood pressure remains elevated in 160 range. Review of Systems: The patient denies PND or orthopnea. Cardiovascular: Denies chest pain or palpitation. Extremities: Edema is improving. The patient is feeling better. Physical Examination: Vital signs: Blood pressure 160/67, heart rate 62, respiratory rate 18, and temperature 99. Lungs: Few crackles at bases. Heart: S1, S2. Abdomen: Soft, benign. Extremities: Both ankles have edema. No clubbing. No cyanosis. Laboratory Data: Hemoglobin is 10.0, WBC 6.8, platelet count is 234,000. Chemistries showed sodium 142, potassium 4.6, chloride 109, CO2 is 27, BUN 44, creatinine 1.7, glucose a 99 and estimated GFR is 30. Calcium is 8.5, magnesium 2.1. Impression And Plan: 1. Fluid overload, congestive heart failure. Continue diuretics. The patient will take Demadex maintenance dose. 2. Hypertension, accelerated. Increase hydralazine to 50 mg every 6 hours. Monitor blood pressure closely. 3. Fatigue, generalized weakness. The patient has congestive heart failure with diastolic dysfunction. Continue low-sodium diet and p.o. fluid restriction. 4. Chronic kidney disease. The patient will follow up with Nephrology, outpatient. The patient has advanced chronic kidney disease. Avoid nonsteroidal anti-inflammatory medication. JONNY/CELESTINE Voice ID: [id number] Report ID: [id number] MTDD
== END 2017-10-04 14:35 | disposition home or self-care (01) | DRG 291 ==
LOC: ER 16:15 → ERHOLD 18:56 → 2ND 20:50
PROVIDERS: ADMIT Family Medicine; ATTEND Internal Medicine Sleep Medicine
DX: I13.0 Hypertensive heart and chronic kidney disease with heart failure and stage 1 through stage 4 chronic kidney disease, or unspecified chronic kidney disease (principal); I50.23 Acute on chronic systolic (congestive) heart failure; N18.4 Chronic kidney disease, stage 4 (severe); N17.9 Acute kidney failure, unspecified; R53.1 Weakness; I73.9 Peripheral vascular disease, unspecified; E11.22 Type 2 diabetes mellitus with diabetic chronic kidney disease; E78.5 Hyperlipidemia, unspecified; G47.33 Obstructive sleep apnea (adult) (pediatric); D63.1 Anemia in chronic kidney disease; J42 Unspecified chronic bronchitis; E11.42 Type 2 diabetes mellitus with diabetic polyneuropathy; K21.9 Gastro-esophageal reflux disease without esophagitis; I25.10 Atherosclerotic heart disease of native coronary artery without angina pectoris; Z79.02 Long term (current) use of antithrombotics/antiplatelets; Z79.82 Long term (current) use of aspirin; Z79.4 Long term (current) use of insulin; Z95.1 Presence of aortocoronary bypass graft; Z87.891 Personal history of nicotine dependence; Z89.412 Acquired absence of left great toe; Z85.42 Personal history of malignant neoplasm of other parts of uterus; Z95.820 Peripheral vascular angioplasty status with implants and grafts; Z88.1 Allergy status to other antibiotic agents; Z88.5 Allergy status to narcotic agent; Z88.8 Allergy status to other drugs, medicaments and biological substances
CPT/HCPCS: 36415; 71045; 71046; 76770; 80048; 80061; 80076; 81003; 82550; 82553; 82607; 82728; 82962; 83036; 83540; 83735; 83880; 84439; 84443; 84466; 84484; 85025; 85610; 93005; 93306; 93970; 94640; 96374; 99285; J1650; J7605

== ENCOUNTER 2017-12-27 13:52 | Emergency (ER) | payer MEDICAID ==
--- OUTSIDE RECORDS SUMMARY | 2017-12-27 13:59 | XMS REPORT ---
:1955 Author Organization [facility] Address [address] [place] [address] Care Team Providers Name Role Phone RAJENDRA [...] (BEAKER) (test 220 mg/dL 70-110 TESTED AT [facility] [address] [facility] nlbo=6235) [facility] [address] BASIC METABOLIC [id number] 15:47:00 Test Item Value Reference Range Comments SODIUM (BEAKER) (test 135 meq/L 136-145 ahmg=626) POTASSIUM (BEAKER) (test 4.8 meq/L 3.5-5.1 fppi=050) CHLORIDE (BEAKER) (test 102 meq/L 98-107 objk=304) CO2 (BEAKER) (test 25 meq/L 22-29 yysh=904) BLOOD UREA NITROGEN 51 mg/dL 7-21 (BEAKER) (test frwr=029) CREATININE (BEAKER) (test 1.99 mg/dL 0.57-1.25 njug=719) GLUCOSE RANDOM (BEAKER) 201 mg/dL 70-105 (test uhhm=550) CALCIUM (BEAKER) (test 8.8 mg/dL 8.4-10.2 yvie=433) EGFR (BEAKER) (test 25 mL/min/1.73 sq m ESTIMATED GFR IS NOT pxhe=5853) ACCURATE CREATININE CLEARANCE IN PREDICTING GLOMERULAR FILTRATION RATE. ESTIMATED GFR IS NOT APPLICABLE FOR DIALYSIS PATIENTS. POCT-GLUCOSE [id number] 11:30:00 Test Item Value Reference Range Comments POC-GLUCOSE METER (BEAKER) 268 mg/dL 70-110 TESTED AT [facility] [address] [facility] (test yfuc=3607) [facility] [address] POCT-GLUCOSE [id number] 07:08:00 Test Item Value Reference Range Comments POC-GLUCOSE METER (BEAKER) 208 mg/dL 70-110 TESTED AT [place] [id number] [facility] (test fozc=6366) [facility] [address] CALCIUM, [id number] 06:47:00 Test Item Value Reference Range Comments CALCIUM IONIZED (BEAKER) (test pvxz=300) 1.11 mmol/L 1.12-1.27 PH, BLOOD (BEAKER) (test zbzl=0032) 7.40 BASIC METABOLIC [id number] 06:40:00 Test Item Value Reference Range Comments SODIUM (BEAKER) (test 134 meq/L 136-145 pdnw=188) POTASSIUM (BEAKER) (test 4.9 meq/L 3.5-5.1 ilqq=570) CHLORIDE (BEAKER) (test 103 meq/L 98-107 qqpt=733) CO2 (BEAKER) (test 24 meq/L 22-29 iqnu=099) BLOOD UREA NITROGEN 53 mg/dL 7-21 (BEAKER) (test cxek=527) CREATININE (BEAKER) (test 2.02 mg/dL 0.57-1.25 pagq=025) GLUCOSE RANDOM (BEAKER) 186 mg/dL 70-105 (test opbp=292) CALCIUM (BEAKER) (test 9.1 mg/dL 8.4-10.2 zqfh=895) EGFR (BEAKER) (test 25 mL/min/1.73 sq m ESTIMATED GFR IS NOT ymed=5868) ACCURATE CREATININE CLEARANCE IN PREDICTING GLOMERULAR FILTRATION RATE. ESTIMATED GFR IS NOT APPLICABLE FOR DIALYSIS PATIENTS. [id number] 06:33:00 Test Item Value Reference Range Comments PHOSPHORUS (BEAKER) (test cfsa=265) 5.1 mg/dL 2.3-4.7 [id number] 06:33:00 Test Item Value Reference Range Comments MAGNESIUM (BEAKER) (test aiup=599) 2.0 mg/dL 1.6-2.6 LACTIC ACID, VENOUS, WHOLE [id number] 06:02:00 Test Item Value Reference Range Comments LACTATE BLOOD VENOUS (2) (BEAKER) (test 0.8 mmol/L 0.5-2.2 uwcn=8787) Effective 08/02/2015: Units/Reference Range ChangeNew: 0.5-2.2 mmol/L Previous: 5 -20 mg/dLCBC W/PLT COUNT & AUTO [id number] 05:54:00 Test Item Value Reference Range Comments WHITE BLOOD CELL COUNT (BEAKER) (test dxdk=300) 7.1 K/ L 3.5-10.5 RED BLOOD CELL COUNT (BEAKER) (test xtia=780) 3.68 M/ L 3.93-5.22 HEMOGLOBIN (BEAKER) (test uyig=427) 9.0 GM/DL 11.2-15.7 HEMATOCRIT (BEAKER) (test evch=306) 29.6 % 34.1-44.9 MEAN CORPUSCULAR VOLUME (BEAKER) (test khwy=409) 80.4 fL 79.4-94.8 MEAN CORPUSCULAR HEMOGLOBIN (BEAKER) (test 24.5 pg 25.6-32.2 nime=885) MEAN CORPUSCULAR HEMOGLOBIN CONC (BEAKER) (test 30.4 GM/DL 32.2-35.5 evyo=360) RED CELL DISTRIBUTION WIDTH (BEAKER) (test 16.5 % 11.7-14.4 azfy=476) PLATELET COUNT (BEAKER) (test ludm=509) 215 K/CU MM 150-450 MEAN PLATELET VOLUME (BEAKER) (test ehrs=357) 9.5 fL 9.4-12.3 NUCLEATED RED BLOOD CELLS (BEAKER) (test 0 /100 WBC 0-0 qtjq=929) NEUTROPHILS RELATIVE PERCENT (BEAKER) (test 42 % ynyj=882) LYMPHOCYTES RELATIVE PERCENT (BEAKER) (test 46 % gmwh=922) MONOCYTES RELATIVE PERCENT (BEAKER) (test 6 % wvlo=883) EOSINOPHILS RELATIVE PERCENT (BEAKER) (test 5 % fglu=791) BASOPHILS RELATIVE PERCENT (BEAKER) (test 1 % qpzn=272) NEUTROPHILS ABSOLUTE COUNT (BEAKER) (test 2.96 K/ L 1.56-6.13 jgba=531) LYMPHOCYTES ABSOLUTE COUNT (BEAKER) (test 3.27 K/ L 1.18-3.74 pfwp=669) MONOCYTES ABSOLUTE COUNT (BEAKER) (test 0.41 K/ L 0.24-0.36 fvtl=975) EOSINOPHILS ABSOLUTE COUNT (BEAKER) (test 0.34 K/ L 0.04-0.36 grau=285) BASOPHILS ABSOLUTE COUNT (BEAKER) (test 0.08 K/ L 0.01-0.08 bvnw=378) IMMATURE GRANULOCYTES-RELATIVE PERCENT (BEAKER) 0 % 0-1 (test cccg=9922) POCT-GLUCOSE [id number] 21:30:00 Test Item Value Reference Range Comments POC-GLUCOSE METER (BEAKER) 248 mg/dL 70-110 TESTED AT [address] (test vwbl=9149) [facility] [address] RAD, [id number] 21:22:00Reason for exam:->fall, tailbone painFINAL REPORT RAD, [...] MDReport Verified Date/Time: 2017 21:22:03 Reading Location: [address] Reading Room POCT- GLUCOSE [id number] 17:37:00 Test Item Value Reference Range Comments POC-GLUCOSE METER (BEAKER) 222 mg/dL 70-110 TESTED AT [address] (test fajz=6870) [facility] [address] POCT-GLUCOSE [id number] 13:55:00 Test Item Value Reference Range Comments POC-GLUCOSE METER (BEAKER) 194 mg/dL 70-110 TESTED AT [facility] [address] [facility] (test fvzd=3569) [facility] [address] POCT-GLUCOSE [id number] 12:34:00 Test Item Value Reference Range Comments POC-GLUCOSE METER (BEAKER) 229 mg/dL 70-110 TESTED AT [address] (test hnml=6609) [facility] [address] POCT-GLUCOSE [id number] 08:00:00 Test Item Value Reference Range Comments POC-GLUCOSE METER (BEAKER) 159 mg/dL 70-110 TESTED AT [address] (test lszr=0331) [facility] [address] CALCIUM, [id number] 06:00:00 Test Item Value Reference Range Comments CALCIUM IONIZED (BEAKER) (test pasm=529) 1.05 mmol/L 1.12-1.27 PH, BLOOD (BEAKER) (test nrkm=9544) 7.45 [id number] 05:59:00 Test Item Value Reference Range Comments PHOSPHORUS (BEAKER) (test agia=349) 4.8 mg/dL 2.3-4.7 [id number] 05:59:00 Test Item Value Reference Range Comments MAGNESIUM (BEAKER) (test qsuj=812) 2.0 mg/dL 1.6-2.6 BASIC METABOLIC [id number] 05:59:00 Test Item Value Reference Range Comments SODIUM (BEAKER) (test 134 meq/L 136-145 mqlh=418) POTASSIUM (BEAKER) (test 4.4 meq/L 3.5-5.1 wnli=181) CHLORIDE (BEAKER) (test 103 meq/L 98-107 yxzn=825) CO2 (BEAKER) (test 23 meq/L 22-29 qxui=820) BLOOD UREA NITROGEN 49 mg/dL 7-21 (BEAKER) (test uukw=486) CREATININE (BEAKER) (test 1.69 mg/dL 0.57-1.25 bzae=559) GLUCOSE RANDOM (BEAKER) 138 mg/dL 70-105 (test ttlc=949) CALCIUM (BEAKER) (test 8.7 mg/dL 8.4-10.2 afxi=518) EGFR (BEAKER) (test 31 mL/min/1.73 sq m ESTIMATED GFR IS NOT echk=2753) ACCURATE CREATININE CLEARANCE IN PREDICTING GLOMERULAR FILTRATION RATE. ESTIMATED GFR IS NOT APPLICABLE FOR DIALYSIS PATIENTS. CREATINE KINASE (CK)2017-09-04 05:59:00 Test Item Value Reference Range Comments CREATINE KINASE TOTAL (BEAKER) (test wfiz=591) 45 U/L 29-200 CBC W/PLT COUNT & AUTO [id number] 05:32:00 Test Item Value Reference Range Comments WHITE BLOOD CELL COUNT (BEAKER) (test kryz=282) 6.1 K/ L 3.5-10.5 RED BLOOD CELL COUNT (BEAKER) (test xzyn=547) 3.69 M/ L 3.93-5.22 HEMOGLOBIN (BEAKER) (test nlbb=784) 8.8 GM/DL 11.2-15.7 HEMATOCRIT (BEAKER) (test xcrj=747) 29.3 % 34.1-44.9 MEAN CORPUSCULAR VOLUME (BEAKER) (test qnyd=374) 79.4 fL 79.4-94.8 MEAN CORPUSCULAR HEMOGLOBIN (BEAKER) (test 23.8 pg 25.6-32.2 mgxz=643) MEAN CORPUSCULAR HEMOGLOBIN CONC (BEAKER) (test 30.0 GM/DL 32.2-35.5 mwgk=729) RED CELL DISTRIBUTION WIDTH (BEAKER) (test 16.3 % 11.7-14.4 vnny=314) PLATELET COUNT (BEAKER) (test evcs=712) 219 K/CU MM 150-450 MEAN PLATELET VOLUME (BEAKER) (test zpzd=582) 9.4 fL 9.4-12.3 NUCLEATED RED BLOOD CELLS (BEAKER) (test 0 /100 WBC 0-0 iiom=447) NEUTROPHILS RELATIVE PERCENT (BEAKER) (test 44 % bqge=305) LYMPHOCYTES RELATIVE PERCENT (BEAKER) (test 43 % kooi=642) MONOCYTES RELATIVE PERCENT (BEAKER) (test 6 % flgy=627) EOSINOPHILS RELATIVE PERCENT (BEAKER) (test 6 % booz=316) BASOPHILS RELATIVE PERCENT (BEAKER) (test 1 % rewr=855) NEUTROPHILS ABSOLUTE COUNT (BEAKER) (test 2.67 K/ L 1.56-6.13 cvyk=615) LYMPHOCYTES ABSOLUTE COUNT (BEAKER) (test 2.66 K/ L 1.18-3.74 hbdn=631) MONOCYTES ABSOLUTE COUNT (BEAKER) (test 0.38 K/ L 0.24-0.36 cjim=274) EOSINOPHILS ABSOLUTE COUNT (BEAKER) (test 0.37 K/ L 0.04-0.36 rxli=922) BASOPHILS ABSOLUTE COUNT (BEAKER) (test 0.05 K/ L 0.01-0.08 nklf=179) IMMATURE GRANULOCYTES-RELATIVE PERCENT (BEAKER) 0 % 0-1 (test ozre=6501) POCT-GLUCOSE [id number] 20:36:00 Test Item Value Reference Range Comments POC-GLUCOSE METER (BEAKER) 211 mg/dL 70-110 TESTED AT [address] (test wizv=0155) [place] [address] CREATININE, RANDOM [id number] 19:55:00 Test Item Value Reference Range Comments CREATININE URINE (BEAKER) (test fngz=507) 16.1 mg/dL Reference Range: No NormalsPROTEIN, RANDOM [id number] 19:55:00 Test Item Value Reference Range Comments PROTEIN, URINE (BEAKER) (test wfnt=5159) 102 mg/dL 0-14 POCT-GLUCOSE [id number] 18:04:00 Test Item Value Reference Range Comments POC-GLUCOSE METER (BEAKER) 177 mg/dL 70-110 TESTED AT [address] (test uwiy=7347) [place] [address] POCT-GLUCOSE [id number] 11:59:00 Test Item Value Reference Range Comments POC-GLUCOSE METER (BEAKER) 244 mg/dL 70-110 TESTED AT [address] (test jpnq=3666) [place] [address] POCT-GLUCOSE [id number] 07:53:00 Test Item Value Reference Range Comments POC-GLUCOSE METER (BEAKER) 160 mg/dL 70-110 TESTED AT [address] (test gmdm=1209) [place] [address] BASIC METABOLIC [id number] 05:29:00 Test Item Value Reference Range Comments SODIUM (BEAKER) (test 136 meq/L 136-145 acnu=886) POTASSIUM (BEAKER) (test 4.5 meq/L 3.5-5.1 bvtj=400) CHLORIDE (BEAKER) (test 105 meq/L 98-107 rtwt=400) CO2 (BEAKER) (test 24 meq/L 22-29 nmvg=090) BLOOD UREA NITROGEN 51 mg/dL 7-21 (BEAKER) (test dsuu=429) CREATININE (BEAKER) (test 1.76 mg/dL 0.57-1.25 zgrk=754) GLUCOSE RANDOM (BEAKER) 149 mg/dL 70-105 (test mozb=380) CALCIUM (BEAKER) (test 8.9 mg/dL 8.4-10.2 osyj=325) EGFR (BEAKER) (test 29 mL/min/1.73 sq m ESTIMATED GFR IS NOT qgho=7244) ACCURATE CREATININE CLEARANCE IN PREDICTING GLOMERULAR FILTRATION RATE. ESTIMATED GFR IS NOT APPLICABLE FOR DIALYSIS PATIENTS. [id number] 05:21:00 Test Item Value Reference Range Comments MAGNESIUM (BEAKER) (test sysv=319) 2.1 mg/dL 1.6-2.6 HEPATIC FUNCTION [id number] 05:21:00 Test Item Value Reference Range Comments TOTAL PROTEIN (BEAKER) (test abxn=891) 6.8 gm/dL 6.0-8.3 ALBUMIN (BEAKER) (test yhwn=3905) 2.9 g/dL 3.5-5.0 BILIRUBIN TOTAL (BEAKER) (test akdn=029) 0.5 mg/dL 0.2-1.2 BILIRUBIN DIRECT (BEAKER) (test zifz=933) 0.2 mg/dL 0.1-0.5 ALKALINE PHOSPHATASE (BEAKER) (test thzm=021) 173 U/L 40-150 AST (SGOT) (BEAKER) (test ligi=704) 25 U/L 5-34 ALT (SGPT) (BEAKER) (test eixz=589) 23 U/L 6-55 TROPONIN [id number] 05:18:00 Test Item Value Reference Range Comments TROPONIN I (BEAKER) (test qgad=223) 0.05 ng/mL 0.00-0.03 Troponin I (TnI) levels [...] and persistent tachyarrhythmia.CBC W/PLT COUNT & AUTO [id number] 04:59:00 Test Item Value Reference Range Comments WHITE BLOOD CELL COUNT (BEAKER) (test ogcv=515) 6.9 K/ L 3.5-10.5 RED BLOOD CELL COUNT (BEAKER) (test smjd=703) 3.75 M/ L 3.93-5.22 HEMOGLOBIN (BEAKER) (test cyhd=194) 8.9 GM/DL 11.2-15.7 HEMATOCRIT (BEAKER) (test vslw=183) 29.7 % 34.1-44.9 MEAN CORPUSCULAR VOLUME (BEAKER) (test cjwd=453) 79.2 fL 79.4-94.8 MEAN CORPUSCULAR HEMOGLOBIN (BEAKER) (test 23.7 pg 25.6-32.2 sqex=220) MEAN CORPUSCULAR HEMOGLOBIN CONC (BEAKER) (test 30.0 GM/DL 32.2-35.5 dfmh=931) RED CELL DISTRIBUTION WIDTH (BEAKER) (test 16.2 % 11.7-14.4 stmm=119) PLATELET COUNT (BEAKER) (test ewpj=953) 240 K/CU MM 150-450 MEAN PLATELET VOLUME (BEAKER) (test vfjl=235) 9.6 fL 9.4-12.3 NUCLEATED RED BLOOD CELLS (BEAKER) (test 0 /100 WBC 0-0 jlna=995) NEUTROPHILS RELATIVE PERCENT (BEAKER) (test 48 % lpji=942) LYMPHOCYTES RELATIVE PERCENT (BEAKER) (test 40 % nwil=923) MONOCYTES RELATIVE PERCENT (BEAKER) (test 6 % thdm=076) EOSINOPHILS RELATIVE PERCENT (BEAKER) (test 5 % ogmq=521) BASOPHILS RELATIVE PERCENT (BEAKER) (test 1 % juzd=160) NEUTROPHILS ABSOLUTE COUNT (BEAKER) (test 3.32 K/ L 1.56-6.13 qupf=617) LYMPHOCYTES ABSOLUTE COUNT (BEAKER) (test 2.76 K/ L 1.18-3.74 zcqh=313) MONOCYTES ABSOLUTE COUNT (BEAKER) (test 0.39 K/ L 0.24-0.36 gbll=125) EOSINOPHILS ABSOLUTE COUNT (BEAKER) (test 0.36 K/ L 0.04-0.36 jmry=381) BASOPHILS ABSOLUTE COUNT (BEAKER) (test 0.06 K/ L 0.01-0.08 wjbh=564) IMMATURE GRANULOCYTES-RELATIVE PERCENT (BEAKER) 0 % 0-1 (test trsg=4215) TROPONIN [id number] 23:40:00 Test Item Value Reference Range Comments TROPONIN I (BEAKER) (test kjym=259) 0.04 ng/mL 0.00-0.03 Troponin I (TnI) levels [...] acidosis, acute neurological disease, and persistent tachyarrhythmia.POCT-GLUCOSE [id number] 22:51:00 Test Item Value Reference Range Comments POC-GLUCOSE METER (BEAKER) 214 mg/dL 70-110 TESTED AT [address] (test ihvt=5558) [facility] [address] RAD, CHEST, 1 VIEW, NON [id number] 21:42:00Reason for exam:->CHEST PAINShould this be performed at the bedside?->YesFINAL REPORT RAD, CHEST, 1 VIEW, NON DEPT INDICATION: CHEST PAIN COMPARISON: Chest x -ray 4 weeks ago TECHNIQUE: Single frontal view of the chest. IMPRESSION: Cardiomegaly.Mild pulmonary interstitial edema with a small right-sided effusion.No acute osseous abnormality. Signed: Dario Abraham MDReport Verified Date/Time: 09/02/2017 21:42:11 Reading Location: [address] Reading Room CREATININE, RANDOM [id number] 21:10:00 Test Item Value Reference Range Comments CREATININE URINE (BEAKER) (test krgk=593) 35.5 mg/dL Reference Range: No NormalsSODIUM, RANDOM [id number] 21:10:00 Test Item Value Reference Range Comments SODIUM URINE (BEAKER) (test jeae=995) 80 meq/L Reference Range: No NormalsURINALYSIS W/ [id number] 20:59:00 Test Item Value Reference Range Comments COLOR (BEAKER) (test xpps=509) Light Yellow CLARITY (BEAKER) (test dffa=489) Clear SPECIFIC GRAVITY UA (BEAKER) (test sqjx=304) 1.008 1.001-1.035 PH UA (BEAKER) (test imfo=694) 6.5 5.0-8.0 PROTEIN UA (BEAKER) (test xrue=820) 200 mg/dL Negative GLUCOSE UA (BEAKER) (test fjwe=271) 70 mg/dL Negative KETONES UA (BEAKER) (test pqwg=920) Negative Negative BILIRUBIN UA (BEAKER) (test mnqy=400) Negative Negative BLOOD UA (BEAKER) (test hbay=497) Negative Negative NITRITE UA (BEAKER) (test gxln=699) Negative Negative LEUKOCYTE ESTERASE UA (BEAKER) (test wtox=927) Negative Negative UROBILINOGEN UA (BEAKER) (test vbmn=491) 0.2 mg/dL 0.2-1.0 RBC UA (BEAKER) (test gjau=774) < /HPF WBC UA (BEAKER) (test viac=266) 2 /HPF BACTERIA (BEAKER) (test ojno=012) Occasional MUCUS (BEAKER) (test iluc=5130) Rare SQUAMOUS EPITHELIAL (BEAKER) (test smsp=557) 2 /HPF HYALINE CASTS (BEAKER) (test lphh=177) 7 /LPF SOURCE(BEAKER) (test diwu=1391) BASIC METABOLIC [id number] 16:49:00 Test Item Value Reference Range Comments SODIUM (BEAKER) (test 134 meq/L 136-145 dubi=321) POTASSIUM (BEAKER) (test 4.8 meq/L 3.5-5.1 rbsw=741) CHLORIDE (BEAKER) (test 101 meq/L 98-107 vgxw=829) CO2 (BEAKER) (test 26 meq/L 22-29 gpzy=682) BLOOD UREA NITROGEN 53 mg/dL 7-21 (BEAKER) (test dpjg=406) CREATININE (BEAKER) (test 2.04 mg/dL 0.57-1.25 vqjy=290) GLUCOSE RANDOM (BEAKER) 267 mg/dL 70-105 (test pnvd=396) CALCIUM (BEAKER) (test 9.1 mg/dL 8.4-10.2 nxgp=286) EGFR (BEAKER) (test 25 mL/min/1.73 sq m ESTIMATED GFR IS NOT bcqb=5064) ACCURATE CREATININE CLEARANCE IN PREDICTING GLOMERULAR FILTRATION RATE. ESTIMATED GFR IS NOT APPLICABLE FOR DIALYSIS PATIENTS. [id number] 16:38:00 Test Item Value Reference Range Comments PROTIME (BEAKER) (test qpud=158) 14.4 seconds 11.7-14.7 INR (BEAKER) (test ajzo=265) 1.1 <=5.9 PARTIAL THROMBOPLASTIN TIME (BEAKER) (test 31.0 seconds 22.5-36.0 femu=713) RECOMMENDED COUMADIN/WARFARIN INR THERAPY RANGESSTANDARD DOSE: 2.0 - 3.0 Includes: PROPHYLAXIS forvenous thrombosis, systemic embolization; TREATMENT for venous thrombosis and/or pulmonary embolus.HIGH RISK: Target INR is 2.5-3.5 for patients with mechanical heart valves.CBC W/PLT COUNT & AUTO [id number] 16:26:00 Test Item Value Reference Range Comments WHITE BLOOD CELL COUNT (BEAKER) (test acfb=785) 6.3 K/ L 3.5-10.5 RED BLOOD CELL COUNT (BEAKER) (test yicg=241) 4.22 M/ L 3.93-5.22 HEMOGLOBIN (BEAKER) (test omji=142) 10.1 GM/DL 11.2-15.7 HEMATOCRIT (BEAKER) (test bgdx=171) 33.4 % 34.1-44.9 MEAN CORPUSCULAR VOLUME (BEAKER) (test mkas=485) 79.1 fL 79.4-94.8 MEAN CORPUSCULAR HEMOGLOBIN (BEAKER) (test 23.9 pg 25.6-32.2 zwee=526) MEAN CORPUSCULAR HEMOGLOBIN CONC (BEAKER) (test 30.2 GM/DL 32.2-35.5 rifz=917) RED CELL DISTRIBUTION WIDTH (BEAKER) (test 16.1 % 11.7-14.4 fqpv=188) PLATELET COUNT (BEAKER) (test jzae=169) 252 K/CU MM 150-450 MEAN PLATELET VOLUME (BEAKER) (test nppn=835) 9.5 fL 9.4-12.3 NUCLEATED RED BLOOD CELLS (BEAKER) (test 0 /100 WBC 0-0 hswt=866) NEUTROPHILS RELATIVE PERCENT (BEAKER) (test 49 % vjdz=977) LYMPHOCYTES RELATIVE PERCENT (BEAKER) (test 38 % cyic=704) MONOCYTES RELATIVE PERCENT (BEAKER) (test 6 % fpdx=718) EOSINOPHILS RELATIVE PERCENT (BEAKER) (test 5 % dqww=536) BASOPHILS RELATIVE PERCENT (BEAKER) (test 1 % dirv=696) NEUTROPHILS ABSOLUTE COUNT (BEAKER) (test 3.08 K/ L 1.56-6.13 oasp=807) LYMPHOCYTES ABSOLUTE COUNT (BEAKER) (test 2.42 K/ L 1.18-3.74 syls=404) MONOCYTES ABSOLUTE COUNT (BEAKER) (test 0.40 K/ L 0.24-0.36 rvbz=593) EOSINOPHILS ABSOLUTE COUNT (BEAKER) (test 0.33 K/ L 0.04-0.36 kvns=795) BASOPHILS ABSOLUTE COUNT (BEAKER) (test 0.07 K/ L 0.01-0.08 fvhn=477) IMMATURE GRANULOCYTES-RELATIVE PERCENT (BEAKER) 0 % 0-1 (test gaki=9519) B-TYPE NATRIURETIC FACTOR (BNP)2017-09-02 13:47:00 Test Item Value Reference Range Comments B-TYPE NATRIURETIC PEPTIDE (BEAKER) (test 1942 pg/mL 0-100 jjby=337) BASIC METABOLIC [id number] 13:43:00 Test Item Value Reference Range Comments SODIUM (BEAKER) (test 134 meq/L 136-145 jhvc=339) POTASSIUM (BEAKER) (test 5.2 meq/L 3.5-5.1 ixcf=866) CHLORIDE (BEAKER) (test 101 meq/L 98-107 nwov=328) CO2 (BEAKER) (test 25 meq/L 22-29 llty=503) BLOOD UREA NITROGEN 55 mg/dL 7-21 (BEAKER) (test cjwa=644) CREATININE (BEAKER) (test 2.09 mg/dL 0.57-1.25 locb=406) GLUCOSE RANDOM (BEAKER) 317 mg/dL 70-105 (test tref=356) CALCIUM (BEAKER) (test 9.2 mg/dL 8.4-10.2 gduo=003) EGFR (BEAKER) (test 24 mL/min/1.73 sq m ESTIMATED GFR IS NOT uzjm=1092) ACCURATE CREATININE CLEARANCE IN PREDICTING GLOMERULAR FILTRATION RATE. ESTIMATED GFR IS NOT APPLICABLE FOR DIALYSIS PATIENTS. POCT-GLUCOSE [id number] 12:44:00 Test Item Value Reference Range Comments POC-GLUCOSE METER (BEAKER) 283 mg/dL 70-110 TESTED AT [facility] [address] (test tixe=2068) [facility] [address] CALCIUM, [id number] 07:03:00 Test Item Value Reference Range Comments CALCIUM IONIZED (BEAKER) (test bsmc=900) 1.02 mmol/L 1.12-1.27 PH, BLOOD (BEAKER) (test xctg=4661) 7.43 [id number] 05:28:00 Test Item Value Reference Range Comments PHOSPHORUS (BEAKER) (test rubi=176) 3.3 mg/dL 2.3-4.7 [id number] 05:28:00 Test Item Value Reference Range Comments MAGNESIUM (BEAKER) (test mbup=900) 1.5 mg/dL 1.6-2.6 BASIC METABOLIC [id number] 05:28:00 Test Item Value Reference Range Comments SODIUM (BEAKER) (test 135 meq/L 136-145 ifys=499) POTASSIUM (BEAKER) (test 3.9 meq/L 3.5-5.1 pebp=678) CHLORIDE (BEAKER) (test 101 meq/L 98-107 alcu=837) CO2 (BEAKER) (test 27 meq/L 22-29 ubzn=274) BLOOD UREA NITROGEN 35 mg/dL 7-21 (BEAKER) (test kvnb=584) CREATININE (BEAKER) (test 1.37 mg/dL 0.57-1.25 vanq=129) GLUCOSE RANDOM (BEAKER) 145 mg/dL 70-105 (test wafw=549) CALCIUM (BEAKER) (test 8.3 mg/dL 8.4-10.2 ixtg=669) EGFR (BEAKER) (test 39 mL/min/1.73 sq m ESTIMATED GFR IS NOT fzlb=9985) ACCURATE CREATININE CLEARANCE IN PREDICTING GLOMERULAR FILTRATION RATE. ESTIMATED GFR IS NOT APPLICABLE FOR DIALYSIS PATIENTS. CBC W/PLT COUNT & AUTO [id number] 05:06:00 Test Item Value Reference Range Comments WHITE BLOOD CELL COUNT (BEAKER) (test xxae=977) 9.3 K/ L 3.5-10.5 RED BLOOD CELL COUNT (BEAKER) (test fibi=334) 3.64 M/ L 3.93-5.22 HEMOGLOBIN (BEAKER) (test fvgq=260) 8.7 GM/DL 11.2-15.7 HEMATOCRIT (BEAKER) (test qvqi=069) 28.5 % 34.1-44.9 MEAN CORPUSCULAR VOLUME (BEAKER) (test lkvp=847) 78.3 fL 79.4-94.8 MEAN CORPUSCULAR HEMOGLOBIN (BEAKER) (test 23.9 pg 25.6-32.2 wzfn=747) MEAN CORPUSCULAR HEMOGLOBIN CONC (BEAKER) (test 30.5 GM/DL 32.2-35.5 ahvm=414) RED CELL DISTRIBUTION WIDTH (BEAKER) (test 14.6 % 11.7-14.4 fwxc=493) PLATELET COUNT (BEAKER) (test fuqz=927) 336 K/CU MM 150-450 MEAN PLATELET VOLUME (BEAKER) (test idpf=022) 9.3 fL 9.4-12.3 NUCLEATED RED BLOOD CELLS (BEAKER) (test 0 /100 WBC 0-0 ayny=046) NEUTROPHILS RELATIVE PERCENT (BEAKER) (test 50 % jwyd=370) LYMPHOCYTES RELATIVE PERCENT (BEAKER) (test 40 % rcjv=286) MONOCYTES RELATIVE PERCENT (BEAKER) (test 6 % jwlm=411) EOSINOPHILS RELATIVE PERCENT (BEAKER) (test 3 % cjyd=583) BASOPHILS RELATIVE PERCENT (BEAKER) (test 1 % nrih=038) NEUTROPHILS ABSOLUTE COUNT (BEAKER) (test 4.66 K/ L 1.56-6.13 fpeq=661) LYMPHOCYTES ABSOLUTE COUNT (BEAKER) (test 3.71 K/ L 1.18-3.74 xzqz=622) MONOCYTES ABSOLUTE COUNT (BEAKER) (test 0.53 K/ L 0.24-0.36 slll=419) EOSINOPHILS ABSOLUTE COUNT (BEAKER) (test 0.31 K/ L 0.04-0.36 lwwu=644) BASOPHILS ABSOLUTE COUNT (BEAKER) (test 0.07 K/ L 0.01-0.08 mcml=873) IMMATURE GRANULOCYTES-RELATIVE PERCENT (BEAKER) 1 % 0-1 (test iywc=6339) POCT-GLUCOSE [id number] 21:08:00 Test Item Value Reference Range Comments POC-GLUCOSE METER (BEAKER) 202 mg/dL 70-110 TESTED AT [address] (test tehx=3020) [facility] [address] POCT-GLUCOSE [id number] 16:50:00 Test Item Value Reference Range Comments POC-GLUCOSE METER (BEAKER) 287 mg/dL 70-110 TESTED AT [address] (test yyoj=9570) [facility] [address] POCT-GLUCOSE [id number] 12:21:00 Test Item Value Reference Range Comments POC-GLUCOSE METER (BEAKER) 213 mg/dL 70-110 TESTED AT [address] (test pxeu=7919) [facility] [address] POCT-GLUCOSE [id number] 08:28:00 Test Item Value Reference Range Comments POC-GLUCOSE METER (BEAKER) 178 mg/dL 70-110 TESTED AT [address] (test elac=7500) [facility] [address] CALCIUM, [id number] 07:06:00 Test Item Value Reference Range Comments CALCIUM IONIZED (BEAKER) (test vplw=607) 0.99 mmol/L 1.12-1.27 PH, BLOOD (BEAKER) (test vxei=8462) 7.42 [id number] 05:37:00 Test Item Value Reference Range Comments PHOSPHORUS (BEAKER) (test yyrn=441) 3.5 mg/dL 2.3-4.7 [id number] 05:37:00 Test Item Value Reference Range Comments MAGNESIUM (BEAKER) (test ybiq=670) 1.6 mg/dL 1.6-2.6 BASIC METABOLIC [id number] 05:37:00 Test Item Value Reference Range Comments SODIUM (BEAKER) (test 133 meq/L 136-145 lxei=641) POTASSIUM (BEAKER) (test 3.8 meq/L 3.5-5.1 kcya=649) CHLORIDE (BEAKER) (test 101 meq/L 98-107 ludn=228) CO2 (BEAKER) (test 25 meq/L 22-29 ohoh=749) BLOOD UREA NITROGEN 39 mg/dL 7-21 (BEAKER) (test ujqm=503) CREATININE (BEAKER) (test 1.42 mg/dL 0.57-1.25 yang=643) GLUCOSE RANDOM (BEAKER) 200 mg/dL 70-105 (test vzgj=865) CALCIUM (BEAKER) (test 8.0 mg/dL 8.4-10.2 utkk=590) EGFR (BEAKER) (test 37 mL/min/1.73 sq m ESTIMATED GFR IS NOT whoj=5616) ACCURATE CREATININE CLEARANCE IN PREDICTING GLOMERULAR FILTRATION RATE. ESTIMATED GFR IS NOT APPLICABLE FOR DIALYSIS PATIENTS. CBC W/PLT COUNT & AUTO [id number] 05:07:00 Test Item Value Reference Range Comments WHITE BLOOD CELL COUNT (BEAKER) (test vwma=335) 9.2 K/ L 3.5-10.5 RED BLOOD CELL COUNT (BEAKER) (test gkle=501) 3.69 M/ L 3.93-5.22 HEMOGLOBIN (BEAKER) (test tzjp=078) 8.8 GM/DL 11.2-15.7 HEMATOCRIT (BEAKER) (test auox=693) 28.8 % 34.1-44.9 MEAN CORPUSCULAR VOLUME (BEAKER) (test nugb=503) 78.0 fL 79.4-94.8 MEAN CORPUSCULAR HEMOGLOBIN (BEAKER) (test 23.8 pg 25.6-32.2 rdcf=914) MEAN CORPUSCULAR HEMOGLOBIN CONC (BEAKER) (test 30.6 GM/DL 32.2-35.5 jgph=600) RED CELL DISTRIBUTION WIDTH (BEAKER) (test 14.6 % 11.7-14.4 hsmk=659) PLATELET COUNT (BEAKER) (test jttp=032) 308 K/CU MM 150-450 MEAN PLATELET VOLUME (BEAKER) (test gcyq=938) 9.3 fL 9.4-12.3 NUCLEATED RED BLOOD CELLS (BEAKER) (test 0 /100 WBC 0-0 hycb=852) NEUTROPHILS RELATIVE PERCENT (BEAKER) (test 61 % ugtu=066) LYMPHOCYTES RELATIVE PERCENT (BEAKER) (test 30 % kimi=936) MONOCYTES RELATIVE PERCENT (BEAKER) (test 5 % xruz=430) EOSINOPHILS RELATIVE PERCENT (BEAKER) (test 3 % jugp=053) BASOPHILS RELATIVE PERCENT (BEAKER) (test 0 % wbpj=270) NEUTROPHILS ABSOLUTE COUNT (BEAKER) (test 5.67 K/ L 1.56-6.13 xwmr=382) LYMPHOCYTES ABSOLUTE COUNT (BEAKER) (test 2.72 K/ L 1.18-3.74 qvor=674) MONOCYTES ABSOLUTE COUNT (BEAKER) (test 0.48 K/ L 0.24-0.36 jlli=867) EOSINOPHILS ABSOLUTE COUNT (BEAKER) (test 0.26 K/ L 0.04-0.36 ofwx=318) BASOPHILS ABSOLUTE COUNT (BEAKER) (test 0.04 K/ L 0.01-0.08 tkry=977) IMMATURE GRANULOCYTES-RELATIVE PERCENT (BEAKER) 1 % 0-1 (test xvma=5861) POCT-GLUCOSE [id number] 21:24:00 Test Item Value Reference Range Comments POC-GLUCOSE METER (BEAKER) 255 mg/dL 70-110 TESTED AT [address] (test muww=4043) [place] [id number] POCT-GLUCOSE [id number] 17:11:00 Test Item Value Reference Range Comments POC-GLUCOSE METER (BEAKER) 244 mg/dL 70-110 TESTED AT [address] (test tcrk=4955) [facility] [address] POCT-GLUCOSE [id number] 11:54:00 Test Item Value Reference Range Comments POC-GLUCOSE METER (BEAKER) 209 mg/dL 70-110 TESTED AT [address] (test avwn=9449) [place] [id number] POCT-GLUCOSE [id number] 08:15:00 Test Item Value Reference Range Comments POC-GLUCOSE METER (BEAKER) 132 mg/dL 70-110 TESTED AT [address] (test jgju=2707) [facility] [address] RAD, CHEST, 1 VIEW, NON [id number] 07:44:00Reason for exam:->edemaShould this be performed at the bedside?->YesFINAL REPORT Chest one view AP 08/07/2017 7:44 AM CLINICAL INDICATION: edema COMPARISON: 2017 IMPRESSION: Cardiomediastinal contours are stable. There is mild pulmonary edema,asymmetric to the right. There are trace bilateral pleural effusions, with bibasilar linear atelectasis. Sternotomy wires remain midline. Signed: Eder Cespedes Verified Date/Time: 08/07/2017 07:44:22 Reading Location: [facility] Radiology Reading Room [id number] 05:30:00 Test Item Value Reference Range Comments FERRITIN (BEAKER) (test wbqu=426) 87 ng/mL 5-275 CBC W/PLT COUNT & AUTO [id number] 05:21:00 Test Item Value Reference Range Comments WHITE BLOOD CELL COUNT (BEAKER) (test uhfm=978) 12.4 K/ L 3.5-10.5 RED BLOOD CELL COUNT (BEAKER) (test ucjg=959) 3.78 M/ L 3.93-5.22 HEMOGLOBIN (BEAKER) (test evmp=618) 9.0 GM/DL 11.2-15.7 HEMATOCRIT (BEAKER) (test tjoo=547) 29.3 % 34.1-44.9 MEAN CORPUSCULAR VOLUME (BEAKER) (test aiam=268) 77.5 fL 79.4-94.8 MEAN CORPUSCULAR HEMOGLOBIN (BEAKER) (test 23.8 pg 25.6-32.2 fxsm=448) MEAN CORPUSCULAR HEMOGLOBIN CONC (BEAKER) (test 30.7 GM/DL 32.2-35.5 itni=974) RED CELL DISTRIBUTION WIDTH (BEAKER) (test 14.7 % 11.7-14.4 sstq=421) PLATELET COUNT (BEAKER) (test njjm=500) 316 K/CU MM 150-450 MEAN PLATELET VOLUME (BEAKER) (test ksmf=274) 9.6 fL 9.4-12.3 NUCLEATED RED BLOOD CELLS (BEAKER) (test 0 /100 WBC 0-0 vuni=259) NEUTROPHILS RELATIVE PERCENT (BEAKER) (test 72 % hfmd=853) LYMPHOCYTES RELATIVE PERCENT (BEAKER) (test 20 % kzql=744) MONOCYTES RELATIVE PERCENT (BEAKER) (test 5 % rmck=577) EOSINOPHILS RELATIVE PERCENT (BEAKER) (test 2 % vfkk=473) BASOPHILS RELATIVE PERCENT (BEAKER) (test 1 % joys=999) NEUTROPHILS ABSOLUTE COUNT (BEAKER) (test 8.93 K/ L 1.56-6.13 jcik=995) LYMPHOCYTES ABSOLUTE COUNT (BEAKER) (test 2.51 K/ L 1.18-3.74 pdfa=604) MONOCYTES ABSOLUTE COUNT (BEAKER) (test 0.58 K/ L 0.24-0.36 jbfz=586) EOSINOPHILS ABSOLUTE COUNT (BEAKER) (test 0.23 K/ L 0.04-0.36 aiex=643) BASOPHILS ABSOLUTE COUNT (BEAKER) (test 0.07 K/ L 0.01-0.08 ivwh=030) IMMATURE GRANULOCYTES-RELATIVE PERCENT (BEAKER) 1 % 0-1 (test jltj=7293) IRON, TIBC, % SAT. (WITHOUT FERRITIN)2017-08-07 05:16:00 Test Item Value Reference Range Comments IRON (BEAKER) (test wkoj=805) 21 ug/dL 40-160 TOTAL IRON BINDING CAPACITY (BEAKER) (test 184 ug/dL 250-450 vocg=242) IRON % SATURATION (2) (BEAKER) (test ymnb=4585) 11 % 20-55 [id number] 05:11:00 Test Item Value Reference Range Comments PHOSPHORUS (BEAKER) (test nwyb=261) 3.6 mg/dL 2.3-4.7 [id number] 05:11:00 Test Item Value Reference Range Comments MAGNESIUM (BEAKER) (test glwl=489) 2.0 mg/dL 1.6-2.6 BASIC METABOLIC [id number] 05:11:00 Test Item Value Reference Range Comments SODIUM (BEAKER) (test 134 meq/L 136-145 yldl=353) POTASSIUM (BEAKER) (test 3.9 meq/L 3.5-5.1 qwth=376) CHLORIDE (BEAKER) (test 102 meq/L 98-107 wzuq=891) CO2 (BEAKER) (test 23 meq/L 22-29 rcyx=967) BLOOD UREA NITROGEN 41 mg/dL 7-21 (BEAKER) (test qxvr=411) CREATININE (BEAKER) (test 1.63 mg/dL 0.57-1.25 zrrm=170) GLUCOSE RANDOM (BEAKER) 124 mg/dL 70-105 (test reqr=120) CALCIUM (BEAKER) (test 8.3 mg/dL 8.4-10.2 wyxo=231) EGFR (BEAKER) (test 32 mL/min/1.73 sq m ESTIMATED GFR IS NOT zwcs=3125) ACCURATE CREATININE CLEARANCE IN PREDICTING GLOMERULAR FILTRATION RATE. ESTIMATED GFR IS NOT APPLICABLE FOR DIALYSIS PATIENTS. B-TYPE NATRIURETIC FACTOR (BNP)2017-08-07 05:05:00 Test Item Value Reference Range Comments B-TYPE NATRIURETIC PEPTIDE (BEAKER) (test 1561 pg/mL 0-100 nqhn=121) CALCIUM, [id number] 04:58:00 Test Item Value Reference Range Comments CALCIUM IONIZED (BEAKER) (test wuct=865) 1.04 mmol/L 1.12-1.27 PH, BLOOD (BEAKER) (test legh=7781) 7.41 RETICULOCYTE [id number] 04:51:00 Test Item Value Reference Range Comments RETICULOCYTE COUNT PCT (BEAKER) (test wspc=994) 1.2 % 0.5-1.7 POCT-GLUCOSE [id number] 20:49:00 Test Item Value Reference Range Comments POC-GLUCOSE METER (BEAKER) 202 mg/dL 70-110 TESTED AT [facility] [address] [facility] (test zvrh=2511) [facility] [address] CREATININE, RANDOM [id number] 18:38:00 Test Item Value Reference Range Comments CREATININE URINE (BEAKER) (test aqoa=493) 56.3 mg/dL Reference Range: No NormalsPROTEIN, RANDOM [id number] 18:38:00 Test Item Value Reference Range Comments PROTEIN, URINE (BEAKER) (test sfbj=0672) 189 mg/dL 0-14 URINALYSIS W/ [id number] 18:34:00 Test Item Value Reference Range Comments COLOR (BEAKER) (test ccvg=251) Light Yellow CLARITY (BEAKER) (test evbf=818) Hazy SPECIFIC GRAVITY UA (BEAKER) (test bkqe=470) 1.008 1.001-1.035 PH UA (BEAKER) (test jpak=323) 5.5 5.0-8.0 PROTEIN UA (BEAKER) (test gxey=507) 100 mg/dL Negative GLUCOSE UA (BEAKER) (test vgvt=654) 30 mg/dL Negative KETONES UA (BEAKER) (test vgll=233) Negative Negative BILIRUBIN UA (BEAKER) (test fyyk=243) Negative Negative BLOOD UA (BEAKER) (test clgg=626) Negative Negative NITRITE UA (BEAKER) (test nahi=340) Negative Negative LEUKOCYTE ESTERASE UA (BEAKER) (test dgwv=809) Negative Negative UROBILINOGEN UA (BEAKER) (test nenw=580) 0.2 mg/dL 0.2-1.0 RBC UA (BEAKER) (test ocbq=059) < /HPF WBC UA (BEAKER) (test wikz=907) 2 /HPF BACTERIA (BEAKER) (test qhxe=042) Rare MUCUS (BEAKER) (test myjz=9607) Rare SQUAMOUS EPITHELIAL (BEAKER) (test cujq=180) 8 /HPF SOURCE(BEAKER) (test vqsu=6168) Urine, Voided POCT-GLUCOSE [id number] 17:38:00 Test Item Value Reference Range Comments POC-GLUCOSE METER (BEAKER) 143 mg/dL 70-110 TESTED AT [address] (test imlw=0385) [place] [address] POCT-GLUCOSE [id number] 12:30:00 Test Item Value Reference Range Comments POC-GLUCOSE METER (BEAKER) 218 mg/dL 70-110 TESTED AT [address] (test bfun=4621) [place] [address] POCT-GLUCOSE [id number] 08:00:00 Test Item Value Reference Range Comments POC-GLUCOSE METER (BEAKER) 134 mg/dL 70-110 TESTED AT [address] (test wmnx=5056) [place] [address] CBC W/PLT COUNT & AUTO [id number] 04:23:00 Test Item Value Reference Range Comments WHITE BLOOD CELL COUNT (BEAKER) (test yrqz=816) 13.9 K/ L 3.5-10.5 RED BLOOD CELL COUNT (BEAKER) (test tgsx=509) 3.23 M/ L 3.93-5.22 HEMOGLOBIN (BEAKER) (test gjxs=171) 7.6 GM/DL 11.2-15.7 HEMATOCRIT (BEAKER) (test fvgn=304) 25.3 % 34.1-44.9 MEAN CORPUSCULAR VOLUME (BEAKER) (test ljbb=773) 78.3 fL 79.4-94.8 MEAN CORPUSCULAR HEMOGLOBIN (BEAKER) (test 23.5 pg 25.6-32.2 lrtf=798) MEAN CORPUSCULAR HEMOGLOBIN CONC (BEAKER) (test 30.0 GM/DL 32.2-35.5 qdyz=607) RED CELL DISTRIBUTION WIDTH (BEAKER) (test 14.8 % 11.7-14.4 zosg=714) PLATELET COUNT (BEAKER) (test game=462) 284 K/CU MM 150-450 MEAN PLATELET VOLUME (BEAKER) (test phjv=464) 9.8 fL 9.4-12.3 NUCLEATED RED BLOOD CELLS (BEAKER) (test 0 /100 WBC 0-0 xwgc=193) NEUTROPHILS RELATIVE PERCENT (BEAKER) (test 77 % izdc=842) LYMPHOCYTES RELATIVE PERCENT (BEAKER) (test 16 % yzgc=592) MONOCYTES RELATIVE PERCENT (BEAKER) (test 4 % vwgd=217) EOSINOPHILS RELATIVE PERCENT (BEAKER) (test 2 % hvph=221) BASOPHILS RELATIVE PERCENT (BEAKER) (test 1 % dtqy=007) NEUTROPHILS ABSOLUTE COUNT (BEAKER) (test 10.70 K/ L 1.56-6.13 mkik=007) LYMPHOCYTES ABSOLUTE COUNT (BEAKER) (test 2.17 K/ L 1.18-3.74 rzce=004) MONOCYTES ABSOLUTE COUNT (BEAKER) (test 0.57 K/ L 0.24-0.36 odla=764) EOSINOPHILS ABSOLUTE COUNT (BEAKER) (test 0.30 K/ L 0.04-0.36 bkqp=247) BASOPHILS ABSOLUTE COUNT (BEAKER) (test 0.08 K/ L 0.01-0.08 ezht=759) IMMATURE GRANULOCYTES-RELATIVE PERCENT (BEAKER) 1 % 0-1 (test zfww=7602) BASIC METABOLIC [id number] 04:13:00 Test Item Value Reference Range Comments SODIUM (BEAKER) (test 134 meq/L 136-145 wvca=696) POTASSIUM (BEAKER) (test 4.6 meq/L 3.5-5.1 ngxx=359) CHLORIDE (BEAKER) (test 103 meq/L 98-107 fjcl=805) CO2 (BEAKER) (test 23 meq/L 22-29 bcmh=024) BLOOD UREA NITROGEN 43 mg/dL 7-21 (BEAKER) (test xnfn=713) CREATININE (BEAKER) (test 1.79 mg/dL 0.57-1.25 dspj=991) GLUCOSE RANDOM (BEAKER) 123 mg/dL 70-105 (test idgy=243) CALCIUM (BEAKER) (test 8.1 mg/dL 8.4-10.2 excu=881) EGFR (BEAKER) (test 29 mL/min/1.73 sq m ESTIMATED GFR IS NOT ybqc=9160) ACCURATE CREATININE CLEARANCE IN PREDICTING GLOMERULAR FILTRATION RATE. ESTIMATED GFR IS NOT APPLICABLE FOR DIALYSIS PATIENTS. [id number] 04:10:00 Test Item Value Reference Range Comments PHOSPHORUS (BEAKER) (test ttvd=757) 4.9 mg/dL 2.3-4.7 [id number] 04:10:00 Test Item Value Reference Range Comments MAGNESIUM (BEAKER) (test tbvs=052) 1.4 mg/dL 1.6-2.6 [id number] 04:08:00 Test Item Value Reference Range Comments FIBRINOGEN LEVEL (BEAKER) (test ldqg=546) 548 mg/dl 225-434 [id number] 04:08:00 Test Item Value Reference Range Comments PARTIAL THROMBOPLASTIN TIME (BEAKER) (test 37.7 seconds 22.5-36.0 vhkl=924) PROTHROMBIN TIME/[id number] 04:07:00 Test Item Value Reference Range Comments PROTIME (BEAKER) (test xhfm=848) 16.2 seconds 11.7-14.7 INR (BEAKER) (test tllq=896) 1.3 <=5.9 RECOMMENDED COUMADIN/WARFARIN INR THERAPY RANGESSTANDARD DOSE: 2.0 - 3.0 Includes: PROPHYLAXIS forvenous thrombosis, systemic embolization; TREATMENT for venous thrombosis and/or pulmonary embolus.HIGH RISK: Target INR is 2.5-3.5 for patients with mechanical heart valves.[id number] 16:59:00 Test Item Value Reference Range Comments ACTIVATED CLOTTING TIME 219 sec TESTED AT [facility] [address] (BEAKER) (test gpqo=806) [facility] [address] BASIC METABOLIC [id number] 14:25:00 Test Item Value Reference Range Comments SODIUM (BEAKER) (test 134 meq/L 136-145 mpyx=960) POTASSIUM (BEAKER) (test 4.4 meq/L 3.5-5.1 bzrf=485) CHLORIDE (BEAKER) (test 103 meq/L 98-107 lxpj=725) CO2 (BEAKER) (test 22 meq/L 22-29 iwhl=645) BLOOD UREA NITROGEN 46 mg/dL 7-21 (BEAKER) (test apgp=713) CREATININE (BEAKER) (test 2.16 mg/dL 0.57-1.25 yggb=979) GLUCOSE RANDOM (BEAKER) 160 mg/dL 70-105 (test msxe=487) CALCIUM (BEAKER) (test 7.8 mg/dL 8.4-10.2 psmf=342) EGFR (BEAKER) (test 23 mL/min/1.73 sq m ESTIMATED GFR IS NOT ezcp=1649) ACCURATE CREATININE CLEARANCE IN PREDICTING GLOMERULAR FILTRATION RATE. ESTIMATED GFR IS NOT APPLICABLE FOR DIALYSIS PATIENTS. POCT-GLUCOSE [id number] 13:21:00 Test Item Value Reference Range Comments POC-GLUCOSE METER (BEAKER) 170 mg/dL 70-110 TESTED AT [facility] [address] [facility] (test wkao=0812) [facility] [address] POTASSIUM-STAT [id number] 13:20:00 Test Item Value Reference Range Comments POTASSIUM (BEAKER) (test ppwy=385) 4.2 meq/L 3.6-5.5 SODIUM NA-STAT [id number] 13:20:00 Test Item Value Reference Range Comments SODIUM (BEAKER) (test wzws=453) 133 meq/L 135-148 HGB/HCT (H&H) - STAT [id number] 12:34:00 Test Item Value Reference Range Comments HEMOGLOBIN (BEAKER) (test rkti=484) 10.8 g/dL 12.0-15.0 HEMATOCRIT (BEAKER) (test hdif=803) 32.0 % 36.0-45.0 POTASSIUM-STAT [id number] 08:15:00 Test Item Value Reference Range Comments POTASSIUM (BEAKER) (test mtlr=446) 4.1 meq/L 3.6-5.5 BLOOD GAS, [id number] 08:15:00 Test Item Value Reference Range Comments PH ARTERIAL (BEAKER) (test ozwd=041) 7.36 7.35-7.45 PCO2 ARTERIAL (BEAKER) (test hsot=603) 47 mmHg 35-45 PO2 ARTERIAL (BEAKER) (test gcxk=855) 213 mmHg 80-90 O2 SATURATION ARTERIAL (BEAKER) (test ylmq=269) 99.4 % 96.0-97.0 HCO3 ARTERIAL (BEAKER) (test mscz=372) 26 mmol/L 21-29 BASE EXCESS ARTERIAL (BEAKER) (test ycsi=665) 0.3 mmol/L -2.0-3.0 PATIENT TEMPERATURE (BEAKER) (test ocvd=7462) 37.2 C FIO2 (BEAKER) (test bqul=3965) 70.0 % SODIUM NA-STAT [id number] 08:15:00 Test Item Value Reference Range Comments SODIUM (BEAKER) (test qoog=572) 130 meq/L 135-148 GLUCOSE-STAT [id number] 08:15:00 Test Item Value Reference Range Comments GLUCOSE RANDOM (BEAKER) (test divi=105) 172 mg/dL 70-110 HGB/HCT (H&H) - STAT [id number] 08:15:00 Test Item Value Reference Range Comments HEMOGLOBIN (BEAKER) (test cywx=399) 8.8 g/dL 12.0-15.0 HEMATOCRIT (BEAKER) (test rdlm=481) 26.0 % 36.0-45.0 BASIC METABOLIC [id number] 07:37:00 Test Item Value Reference Range Comments SODIUM (BEAKER) (test 135 meq/L 136-145 oxft=522) POTASSIUM (BEAKER) (test 4.4 meq/L 3.5-5.1 czmu=417) CHLORIDE (BEAKER) (test 100 meq/L 98-107 jqqu=320) CO2 (BEAKER) (test 23 meq/L 22-29 qbsr=564) BLOOD UREA NITROGEN 46 mg/dL 7-21 (BEAKER) (test qdrr=858) CREATININE (BEAKER) (test 1.98 mg/dL 0.57-1.25 wpgh=378) GLUCOSE RANDOM (BEAKER) 188 mg/dL 70-105 (test chma=748) CALCIUM (BEAKER) (test 8.9 mg/dL 8.4-10.2 qiox=653) EGFR (BEAKER) (test 26 mL/min/1.73 sq m ESTIMATED GFR IS NOT grwp=5788) ACCURATE CREATININE CLEARANCE IN PREDICTING GLOMERULAR FILTRATION RATE. ESTIMATED GFR IS NOT APPLICABLE FOR DIALYSIS PATIENTS. CBC W/PLT COUNT & AUTO [id number] 07:20:00 Test Item Value Reference Range Comments WHITE BLOOD CELL COUNT (BEAKER) (test uglq=055) 20.2 K/ L 3.5-10.5 RED BLOOD CELL COUNT (BEAKER) (test lexl=287) 3.86 M/ L 3.93-5.22 HEMOGLOBIN (BEAKER) (test crkh=737) 9.1 GM/DL 11.2-15.7 HEMATOCRIT (BEAKER) (test oitu=266) 29.4 % 34.1-44.9 MEAN CORPUSCULAR VOLUME (BEAKER) (test ljyc=097) 76.2 fL 79.4-94.8 MEAN CORPUSCULAR HEMOGLOBIN (BEAKER) (test 23.6 pg 25.6-32.2 amhm=852) MEAN CORPUSCULAR HEMOGLOBIN CONC (BEAKER) (test 31.0 GM/DL 32.2-35.5 hqhr=655) RED CELL DISTRIBUTION WIDTH (BEAKER) (test 14.9 % 11.7-14.4 orqs=014) PLATELET COUNT (BEAKER) (test xalh=845) 343 K/CU MM 150-450 MEAN PLATELET VOLUME (BEAKER) (test uwwe=303) 9.5 fL 9.4-12.3 NUCLEATED RED BLOOD CELLS (BEAKER) (test 0 /100 WBC 0-0 xcjy=119) NEUTROPHILS RELATIVE PERCENT (BEAKER) (test 78 % ynhp=828) LYMPHOCYTES RELATIVE PERCENT (BEAKER) (test 15 % zozy=731) MONOCYTES RELATIVE PERCENT (BEAKER) (test 5 % hmno=550) EOSINOPHILS RELATIVE PERCENT (BEAKER) (test 1 % zmsx=359) BASOPHILS RELATIVE PERCENT (BEAKER) (test 1 % fokr=264) NEUTROPHILS ABSOLUTE COUNT (BEAKER) (test 15.70 K/ L 1.56-6.13 vzws=311) LYMPHOCYTES ABSOLUTE COUNT (BEAKER) (test 2.99 K/ L 1.18-3.74 vtxh=718) MONOCYTES ABSOLUTE COUNT (BEAKER) (test 0.93 K/ L 0.24-0.36 sktp=784) EOSINOPHILS ABSOLUTE COUNT (BEAKER) (test 0.20 K/ L 0.04-0.36 xuqy=956) BASOPHILS ABSOLUTE COUNT (BEAKER) (test 0.12 K/ L 0.01-0.08 bpfx=833) IMMATURE GRANULOCYTES-RELATIVE PERCENT (BEAKER) 1 % 0-1 (test wpyp=7897) POCT-GLUCOSE [id number] 07:03:00 Test Item Value Reference Range Comments POC-GLUCOSE METER (BEAKER) 186 mg/dL 70-110 TESTED AT [address] (test wyop=3258) [facility] [address] B-TYPE NATRIURETIC FACTOR (BNP)2017-06-10 12:44:00 Test Item Value Reference Range Comments B-TYPE NATRIURETIC PEPTIDE (BEAKER) (test 1264 pg/mL 0-100 yjhi=458) [id number] 12:36:00 Test Item Value Reference Range Comments MAGNESIUM (BEAKER) (test xnwy=205) 1.6 mg/dL 1.6-2.6 BASIC METABOLIC [id number] 12:36:00 Test Item Value Reference Range Comments SODIUM (BEAKER) (test 137 meq/L 136-145 ykve=989) POTASSIUM (BEAKER) (test 5.4 meq/L 3.5-5.1 lzgr=038) CHLORIDE (BEAKER) (test 108 meq/L 98-107 uqfi=299) CO2 (BEAKER) (test 21 meq/L 22-29 bcdj=193) BLOOD UREA NITROGEN 39 mg/dL 7-21 (BEAKER) (test dxcu=860) CREATININE (BEAKER) (test 1.49 mg/dL 0.57-1.25 nxgb=886) GLUCOSE RANDOM (BEAKER) 219 mg/dL 70-105 (test isbk=010) CALCIUM (BEAKER) (test 8.5 mg/dL 8.4-10.2 gzox=972) EGFR (BEAKER) (test 35 mL/min/1.73 sq m ESTIMATED GFR IS NOT nqfe=1281) ACCURATE CREATININE CLEARANCE IN PREDICTING GLOMERULAR FILTRATION RATE. ESTIMATED GFR IS NOT APPLICABLE FOR DIALYSIS PATIENTS. POCT-GLUCOSE [id number] 12:04:00 Test Item Value Reference Range Comments POC-GLUCOSE METER (BEAKER) 274 mg/dL 70-110 TESTED AT [address] (test walu=7176) [facility] [address] POCT-GLUCOSE [id number] 07:21:00 Test Item Value Reference Range Comments POC-GLUCOSE METER (BEAKER) 137 mg/dL 70-110 TESTED AT [facility] [address] (test ywvq=6999) [facility] [address] BASIC METABOLIC [id number] 05:10:00 Test Item Value Reference Range Comments SODIUM (BEAKER) (test 137 meq/L 136-145 zzmi=432) POTASSIUM (BEAKER) (test 4.1 meq/L 3.5-5.1 gymw=879) CHLORIDE (BEAKER) (test 106 meq/L 98-107 rofi=071) CO2 (BEAKER) (test 24 meq/L 22-29 sobr=853) BLOOD UREA NITROGEN 42 mg/dL 7-21 (BEAKER) (test nuvz=329) CREATININE (BEAKER) (test 1.64 mg/dL 0.57-1.25 vvbz=021) GLUCOSE RANDOM (BEAKER) 162 mg/dL 70-105 (test ohqk=829) CALCIUM (BEAKER) (test 8.1 mg/dL 8.4-10.2 yevb=003) EGFR (BEAKER) (test 32 mL/min/1.73 sq m ESTIMATED GFR IS NOT itwj=0447) ACCURATE CREATININE CLEARANCE IN PREDICTING GLOMERULAR FILTRATION RATE. ESTIMATED GFR IS NOT APPLICABLE FOR DIALYSIS PATIENTS. CBC (HEMOGRAM ONLY)2017-06-01 04:30:00 Test Item Value Reference Range Comments WHITE BLOOD CELL COUNT (BEAKER) (test ehjv=120) 6.4 K/ L 3.5-10.5 RED BLOOD CELL COUNT (BEAKER) (test umbq=444) 3.38 M/ L 3.93-5.22 HEMOGLOBIN (BEAKER) (test hrhk=720) 8.7 GM/DL 11.2-15.7 HEMATOCRIT (BEAKER) (test wywj=560) 28.2 % 34.1-44.9 MEAN CORPUSCULAR VOLUME (BEAKER) (test styg=908) 83.4 fL 79.4-94.8 MEAN CORPUSCULAR HEMOGLOBIN (BEAKER) (test 25.7 pg 25.6-32.2 xuet=592) MEAN CORPUSCULAR HEMOGLOBIN CONC (BEAKER) (test 30.9 GM/DL 32.2-35.5 lgfc=511) RED CELL DISTRIBUTION WIDTH (BEAKER) (test 15.2 % 11.7-14.4 gfnm=854) PLATELET COUNT (BEAKER) (test efol=013) 320 K/CU MM 150-450 MEAN PLATELET VOLUME (BEAKER) (test rahq=917) 9.5 fL 9.4-12.3 NUCLEATED RED BLOOD CELLS (BEAKER) (test 0 /100 WBC 0-0 tuys=789) POCT-GLUCOSE [id number] 21:23:00 Test Item Value Reference Range Comments POC-GLUCOSE METER (BEAKER) 240 mg/dL 70-110 TESTED AT [address] (test rjaf=3509) [facility] [address] POCT-GLUCOSE [id number] 16:42:00 Test Item Value Reference Range Comments POC-GLUCOSE METER (BEAKER) 234 mg/dL 70-110 TESTED AT [address] (test nhme=1646) [place] [id number] POCT-GLUCOSE [id number] 13:22:00 Test Item Value Reference Range Comments POC-GLUCOSE METER (BEAKER) 166 mg/dL 70-110 TESTED AT [address] (test xemb=8363) [facility] [address] RAD, CHEST, 1 VIEW, NON [id number] 09:43:00Reason for exam:->s/p ACBShould this be performed [...] Ring Verified Date/Time: 05/31/2017 09: 43:30 ReadingLocation: [facility] B1 [id number] Ortho Consult Reading Room POCT-GLUCOSE [id number] 06:57:00 Test Item Value Reference Range Comments POC-GLUCOSE METER (BEAKER) 136 mg/dL 70-110 TESTED AT [facility] [address] (test nfpn=7906) [facility] [address] CALCIUM, [id number] 06:41:00 Test Item Value Reference Range Comments CALCIUM IONIZED (BEAKER) (test omxy=953) 1.10 mmol/L 1.12-1.27 PH, BLOOD (BEAKER) (test qxzz=8483) 7.42 [id number] 06:17:00 Test Item Value Reference Range Comments PHOSPHORUS (BEAKER) (test jeay=893) 3.3 mg/dL 2.3-4.7 [id number] 06:17:00 Test Item Value Reference Range Comments MAGNESIUM (BEAKER) (test wqto=127) 1.8 mg/dL 1.6-2.6 BASIC METABOLIC [id number] 06:17:00 Test Item Value Reference Range Comments SODIUM (BEAKER) (test 131 meq/L 136-145 vavg=700) POTASSIUM (BEAKER) (test 4.5 meq/L 3.5-5.1 nvzo=310) CHLORIDE (BEAKER) (test 103 meq/L 98-107 rvkl=830) CO2 (BEAKER) (test 21 meq/L 22-29 grnv=459) BLOOD UREA NITROGEN 43 mg/dL 7-21 (BEAKER) (test agkw=172) CREATININE (BEAKER) (test 1.74 mg/dL 0.57-1.25 jqgi=294) GLUCOSE RANDOM (BEAKER) 126 mg/dL 70-105 (test wtym=226) CALCIUM (BEAKER) (test 8.1 mg/dL 8.4-10.2 stoh=149) EGFR (BEAKER) (test 30 mL/min/1.73 sq m ESTIMATED GFR IS NOT pwxp=0153) ACCURATE CREATININE CLEARANCE IN PREDICTING GLOMERULAR FILTRATION RATE. ESTIMATED GFR IS NOT APPLICABLE FOR DIALYSIS PATIENTS. CBC W/PLT COUNT & AUTO [id number] 05:07:00 Test Item Value Reference Range Comments WHITE BLOOD CELL COUNT (BEAKER) (test nmzp=649) 5.9 K/ L 3.5-10.5 RED BLOOD CELL COUNT (BEAKER) (test kniv=906) 3.16 M/ L 3.93-5.22 HEMOGLOBIN (BEAKER) (test lpnh=431) 8.2 GM/DL 11.2-15.7 HEMATOCRIT (BEAKER) (test hnez=474) 26.6 % 34.1-44.9 MEAN CORPUSCULAR VOLUME (BEAKER) (test iaye=844) 84.2 fL 79.4-94.8 MEAN CORPUSCULAR HEMOGLOBIN (BEAKER) (test 25.9 pg 25.6-32.2 utad=350) MEAN CORPUSCULAR HEMOGLOBIN CONC (BEAKER) (test 30.8 GM/DL 32.2-35.5 twlt=478) RED CELL DISTRIBUTION WIDTH (BEAKER) (test 15.1 % 11.7-14.4 zzoe=940) PLATELET COUNT (BEAKER) (test vury=050) 320 K/CU MM 150-450 MEAN PLATELET VOLUME (BEAKER) (test qbgx=789) 9.6 fL 9.4-12.3 NUCLEATED RED BLOOD CELLS (BEAKER) (test 0 /100 WBC 0-0 cosa=601) NEUTROPHILS RELATIVE PERCENT (BEAKER) (test 65 % esmr=258) LYMPHOCYTES RELATIVE PERCENT (BEAKER) (test 24 % qqkr=843) MONOCYTES RELATIVE PERCENT (BEAKER) (test 8 % tkxb=815) EOSINOPHILS RELATIVE PERCENT (BEAKER) (test 2 % hspr=403) BASOPHILS RELATIVE PERCENT (BEAKER) (test 1 % wwky=878) NEUTROPHILS ABSOLUTE COUNT (BEAKER) (test 3.84 K/ L 1.56-6.13 aixe=033) LYMPHOCYTES ABSOLUTE COUNT (BEAKER) (test 1.41 K/ L 1.18-3.74 hwrc=884) MONOCYTES ABSOLUTE COUNT (BEAKER) (test 0.47 K/ L 0.24-0.36 asuo=156) EOSINOPHILS ABSOLUTE COUNT (BEAKER) (test 0.11 K/ L 0.04-0.36 yykn=315) BASOPHILS ABSOLUTE COUNT (BEAKER) (test 0.05 K/ L 0.01-0.08 sccm=149) IMMATURE GRANULOCYTES-RELATIVE PERCENT (BEAKER) 1 % 0-1 (test kgmi=5374) POCT-GLUCOSE [id number] 20:56:00 Test Item Value Reference Range Comments POC-GLUCOSE METER (BEAKER) 196 mg/dL 70-110 TESTED AT [facility] [address] [facility] (test yzlw=1483) [facility] [address] POCT-GLUCOSE [id number] 16:42:00 Test Item Value Reference Range Comments POC-GLUCOSE METER (BEAKER) 196 mg/dL 70-110 TESTED AT [facility] [address] [facility] (test waxe=0264) [facility] [address] POCT-GLUCOSE [id number] 11:45:00 Test Item Value Reference Range Comments POC-GLUCOSE METER (BEAKER) 215 mg/dL 70-110 TESTED AT [place] [id number] [facility] (test kshp=5117) [place] [id number] RAD, CHEST, 1 VIEW, NON [id number] 11:15:00Reason for exam:->s/p ACBShould this be performed at the bedside?->YesFINAL REPORT Chest one view compared to May 28, 2017 Discussion: Airspace opacities are seen in both lower lung regions, probably atelectasis. Correlate clinically for infection. I could not exclude small effusions. No pneumothorax. Upper lungs clear. Signed: Jeannette Nava Verified Date/Time: 2017 11:15:07 Reading Location: [facility] Radiology Reading Room CALCIUM, [id number] 09:21:00 Test Item Value Reference Range Comments CALCIUM IONIZED (BEAKER) (test xysc=162) 1.11 mmol/L 1.12-1.27 PH, BLOOD (BEAKER) (test oluo=3486) 7.36 BASIC METABOLIC [id number] 07:37:00 Test Item Value Reference Range Comments SODIUM (BEAKER) (test 135 meq/L 136-145 bxrv=711) POTASSIUM (BEAKER) (test 4.9 meq/L 3.5-5.1 sfti=316) CHLORIDE (BEAKER) (test 105 meq/L 98-107 upbu=199) CO2 (BEAKER) (test 25 meq/L 22-29 mcjv=062) BLOOD UREA NITROGEN 44 mg/dL 7-21 (BEAKER) (test bzsu=426) CREATININE (BEAKER) (test 1.76 mg/dL 0.57-1.25 yrsh=115) GLUCOSE RANDOM (BEAKER) 136 mg/dL 70-105 (test prfe=534) CALCIUM (BEAKER) (test 8.2 mg/dL 8.4-10.2 yasx=543) EGFR (BEAKER) (test 29 mL/min/1.73 sq m ESTIMATED GFR IS NOT hksx=6271) ACCURATE CREATININE CLEARANCE IN PREDICTING GLOMERULAR FILTRATION RATE. ESTIMATED GFR IS NOT APPLICABLE FOR DIALYSIS PATIENTS. [id number] 07:28:00 Test Item Value Reference Range Comments PHOSPHORUS (BEAKER) (test hdab=982) 3.8 mg/dL 2.3-4.7 [id number] 07:28:00 Test Item Value Reference Range Comments MAGNESIUM (BEAKER) (test crhq=987) 1.9 mg/dL 1.6-2.6 CBC W/PLT COUNT & AUTO [id number] 07:26:00 Test Item Value Reference Range Comments WHITE BLOOD CELL COUNT (BEAKER) (test tpai=951) 6.3 K/ L 3.5-10.5 RED BLOOD CELL COUNT (BEAKER) (test kess=842) 3.32 M/ L 3.93-5.22 HEMOGLOBIN (BEAKER) (test atgj=462) 8.5 GM/DL 11.2-15.7 HEMATOCRIT (BEAKER) (test ryxp=199) 27.8 % 34.1-44.9 MEAN CORPUSCULAR VOLUME (BEAKER) (test mvuc=076) 83.7 fL 79.4-94.8 MEAN CORPUSCULAR HEMOGLOBIN (BEAKER) (test 25.6 pg 25.6-32.2 vrbc=587) MEAN CORPUSCULAR HEMOGLOBIN CONC (BEAKER) (test 30.6 GM/DL 32.2-35.5 itdc=166) RED CELL DISTRIBUTION WIDTH (BEAKER) (test 15.0 % 11.7-14.4 fgvm=619) PLATELET COUNT (BEAKER) (test guvl=497) 336 K/CU MM 150-450 MEAN PLATELET VOLUME (BEAKER) (test kdga=856) 9.8 fL 9.4-12.3 NUCLEATED RED BLOOD CELLS (BEAKER) (test 0 /100 WBC 0-0 igpi=374) NEUTROPHILS RELATIVE PERCENT (BEAKER) (test 65 % ebug=370) LYMPHOCYTES RELATIVE PERCENT (BEAKER) (test 24 % nind=364) MONOCYTES RELATIVE PERCENT (BEAKER) (test 7 % hzdb=789) EOSINOPHILS RELATIVE PERCENT (BEAKER) (test 3 % wnfx=858) BASOPHILS RELATIVE PERCENT (BEAKER) (test 0 % wdbm=970) NEUTROPHILS ABSOLUTE COUNT (BEAKER) (test 4.13 K/ L 1.56-6.13 komz=611) LYMPHOCYTES ABSOLUTE COUNT (BEAKER) (test 1.50 K/ L 1.18-3.74 klmt=676) MONOCYTES ABSOLUTE COUNT (BEAKER) (test 0.44 K/ L 0.24-0.36 aibl=726) EOSINOPHILS ABSOLUTE COUNT (BEAKER) (test 0.20 K/ L 0.04-0.36 crfk=806) BASOPHILS ABSOLUTE COUNT (BEAKER) (test 0.02 K/ L 0.01-0.08 dlwd=079) IMMATURE GRANULOCYTES-RELATIVE PERCENT (BEAKER) 1 % 0-1 (test leiy=6392) POCT-GLUCOSE [id number] 07:21:00 Test Item Value Reference Range Comments POC-GLUCOSE METER (BEAKER) 146 mg/dL 70-110 TESTED AT [address] (test rhfe=3168) [place] [id number] POCT-GLUCOSE [id number] 22:02:00 Test Item Value Reference Range Comments POC-GLUCOSE METER (BEAKER) 201 mg/dL 70-110 TESTED AT [address] (test tech=9297) [place] [id number] POCT-GLUCOSE [id number] 18:27:00 Test Item Value Reference Range Comments POC-GLUCOSE METER (BEAKER) 240 mg/dL 70-110 TESTED AT [address] (test hshe=9281) [place] [id number] POCT-GLUCOSE [id number] 12:13:00 Test Item Value Reference Range Comments POC-GLUCOSE METER (BEAKER) 193 mg/dL 70-110 TESTED AT [address] (test epww=8667) [place] [id number] POCT-GLUCOSE [id number] 09:02:00 Test Item Value Reference Range Comments POC-GLUCOSE METER (BEAKER) 132 mg/dL 70-110 TESTED AT [address] (test ioyd=5469) [place] [address] CALCIUM, [id number] 05:42:00 Test Item Value Reference Range Comments CALCIUM IONIZED (BEAKER) (test tqtg=173) 1.12 mmol/L 1.12-1.27 PH, BLOOD (BEAKER) (test twzc=0456) 7.34 COMPREHENSIVE METABOLIC [id number] 05:33:00 Test Item Value Reference Range Comments TOTAL PROTEIN (BEAKER) 5.9 gm/dL 6.0-8.3 (test dmae=158) ALBUMIN (BEAKER) (test 2.7 g/dL 3.5-5.0 rqaw=3955) ALKALINE PHOSPHATASE 130 U/L 40-150 (BEAKER) (test bxsd=086) BILIRUBIN TOTAL (BEAKER) 0.3 mg/dL 0.2-1.2 (test hccl=537) SODIUM (BEAKER) (test 135 meq/L 136-145 xjaq=575) POTASSIUM (BEAKER) (test 4.7 meq/L 3.5-5.1 ijze=662) CHLORIDE (BEAKER) (test 105 meq/L 98-107 jpvm=550) CO2 (BEAKER) (test 24 meq/L 22-29 eqme=820) BLOOD UREA NITROGEN 42 mg/dL 7-21 (BEAKER) (test flsp=817) CREATININE (BEAKER) (test 1.78 mg/dL 0.57-1.25 yrdb=956) GLUCOSE RANDOM (BEAKER) 129 mg/dL 70-105 (test ihph=503) CALCIUM (BEAKER) (test 8.5 mg/dL 8.4-10.2 agrc=772) AST (SGOT) (BEAKER) (test 23 U/L 5-34 gymp=876) ALT (SGPT) (BEAKER) (test 15 U/L 6-55 jgih=632) EGFR (BEAKER) (test 29 mL/min/1.73 sq m ESTIMATED GFR IS NOT cynt=7277) ACCURATE CREATININE CLEARANCE IN PREDICTING GLOMERULAR FILTRATION RATE. ESTIMATED GFR IS NOT APPLICABLE FOR DIALYSIS PATIENTS. [id number] 05:32:00 Test Item Value Reference Range Comments PHOSPHORUS (BEAKER) (test qhzi=539) 3.6 mg/dL 2.3-4.7 [id number] 05:32:00 Test Item Value Reference Range Comments MAGNESIUM (BEAKER) (test guff=532) 2.2 mg/dL 1.6-2.6 CBC W/PLT COUNT & AUTO [id number] 05:01:00 Test Item Value Reference Range Comments WHITE BLOOD CELL COUNT (BEAKER) (test oavw=794) 6.4 K/ L 3.5-10.5 RED BLOOD CELL COUNT (BEAKER) (test xnyj=971) 3.43 M/ L 3.93-5.22 HEMOGLOBIN (BEAKER) (test vxzd=108) 8.9 GM/DL 11.2-15.7 HEMATOCRIT (BEAKER) (test kxxy=320) 28.9 % 34.1-44.9 MEAN CORPUSCULAR VOLUME (BEAKER) (test qqnu=184) 84.3 fL 79.4-94.8 MEAN CORPUSCULAR HEMOGLOBIN (BEAKER) (test 25.9 pg 25.6-32.2 xfmn=070) MEAN CORPUSCULAR HEMOGLOBIN CONC (BEAKER) (test 30.8 GM/DL 32.2-35.5 ifit=806) RED CELL DISTRIBUTION WIDTH (BEAKER) (test 15.0 % 11.7-14.4 dejw=450) PLATELET COUNT (BEAKER) (test voyy=316) 324 K/CU MM 150-450 MEAN PLATELET VOLUME (BEAKER) (test nbiv=178) 9.3 fL 9.4-12.3 NUCLEATED RED BLOOD CELLS (BEAKER) (test 0 /100 WBC 0-0 nptc=868) NEUTROPHILS RELATIVE PERCENT (BEAKER) (test 62 % pwht=499) LYMPHOCYTES RELATIVE PERCENT (BEAKER) (test 25 % fufd=624) MONOCYTES RELATIVE PERCENT (BEAKER) (test 8 % rzxo=362) EOSINOPHILS RELATIVE PERCENT (BEAKER) (test 4 % brqj=674) BASOPHILS RELATIVE PERCENT (BEAKER) (test 1 % oexi=727) NEUTROPHILS ABSOLUTE COUNT (BEAKER) (test 3.93 K/ L 1.56-6.13 zdwg=240) LYMPHOCYTES ABSOLUTE COUNT (BEAKER) (test 1.60 K/ L 1.18-3.74 uelg=716) MONOCYTES ABSOLUTE COUNT (BEAKER) (test 0.51 K/ L 0.24-0.36 oouo=988) EOSINOPHILS ABSOLUTE COUNT (BEAKER) (test 0.25 K/ L 0.04-0.36 yzox=220) BASOPHILS ABSOLUTE COUNT (BEAKER) (test 0.03 K/ L 0.01-0.08 usoa=960) IMMATURE GRANULOCYTES-RELATIVE PERCENT (BEAKER) 1 % 0-1 (test sahv=5559) POCT-GLUCOSE [id number] 21:04:00 Test Item Value Reference Range Comments POC-GLUCOSE METER (BEAKER) 165 mg/dL 70-110 TESTED AT [address] (test mdwh=0367) [facility] [address] POCT-GLUCOSE [id number] 17:30:00 Test Item Value Reference Range Comments POC-GLUCOSE METER (BEAKER) 236 mg/dL 70-110 TESTED AT [address] (test vycj=7031) [facility] [address] RAD, CHEST, 1 VIEW, NON [id number] 13:53:00Reason for exam:->assess for ill-defined opacityShould this [...] [place] Verified Date/Time: 05/28/2017 13:53:03 Reading Location: [address] Radiology Reading Room Electronically signed by: LUIS ALBERTO CALLAWAY M.D. on 01:53 PMPOCT-GLUCOSE [id number] 11:53:00 Test Item Value Reference Range Comments POC-GLUCOSE METER (BEAKER) 215 mg/dL 70-110 TESTED AT [address] (test eugi=4599) [facility] [address] POCT-GLUCOSE [id number] 08:32:00 Test Item Value Reference Range Comments POC-GLUCOSE METER (BEAKER) 168 mg/dL 70-110 TESTED AT [address] (test wzhc=3285) [facility] [address] CALCIUM, [id number] 05:44:00 Test Item Value Reference Range Comments CALCIUM IONIZED (BEAKER) (test jxcp=870) 1.09 mmol/L 1.12-1.27 PH, BLOOD (BEAKER) (test eazs=8639) 7.38 [id number] 05:44:00 Test Item Value Reference Range Comments PHOSPHORUS (BEAKER) (test csaw=897) 3.5 mg/dL 2.3-4.7 [id number] 05:44:00 Test Item Value Reference Range Comments MAGNESIUM (BEAKER) (test yfec=943) 1.9 mg/dL 1.6-2.6 BASIC METABOLIC [id number] 05:44:00 Test Item Value Reference Range Comments SODIUM (BEAKER) (test 137 meq/L 136-145 xlth=297) POTASSIUM (BEAKER) (test 4.5 meq/L 3.5-5.1 bizb=019) CHLORIDE (BEAKER) (test 108 meq/L 98-107 jcyd=982) CO2 (BEAKER) (test 23 meq/L 22-29 mhta=550) BLOOD UREA NITROGEN 41 mg/dL 7-21 (BEAKER) (test issr=437) CREATININE (BEAKER) (test 1.41 mg/dL 0.57-1.25 zdaw=559) GLUCOSE RANDOM (BEAKER) 113 mg/dL 70-105 (test ohtb=264) CALCIUM (BEAKER) (test 8.1 mg/dL 8.4-10.2 ifyv=166) EGFR (BEAKER) (test 38 mL/min/1.73 sq m ESTIMATED GFR IS NOT yvtr=1048) ACCURATE CREATININE CLEARANCE IN PREDICTING GLOMERULAR FILTRATION RATE. ESTIMATED GFR IS NOT APPLICABLE FOR DIALYSIS PATIENTS. CBC W/PLT COUNT & AUTO [id number] 05:05:00 Test Item Value Reference Range Comments WHITE BLOOD CELL COUNT (BEAKER) (test dbbv=592) 6.3 K/ L 3.5-10.5 RED BLOOD CELL COUNT (BEAKER) (test obyd=153) 3.40 M/ L 3.93-5.22 HEMOGLOBIN (BEAKER) (test boos=704) 8.8 GM/DL 11.2-15.7 HEMATOCRIT (BEAKER) (test hyhc=289) 29.0 % 34.1-44.9 MEAN CORPUSCULAR VOLUME (BEAKER) (test qhor=194) 85.3 fL 79.4-94.8 MEAN CORPUSCULAR HEMOGLOBIN (BEAKER) (test 25.9 pg 25.6-32.2 ukph=149) MEAN CORPUSCULAR HEMOGLOBIN CONC (BEAKER) (test 30.3 GM/DL 32.2-35.5 cuva=704) RED CELL DISTRIBUTION WIDTH (BEAKER) (test 14.9 % 11.7-14.4 yhqr=579) PLATELET COUNT (BEAKER) (test poos=510) 282 K/CU MM 150-450 MEAN PLATELET VOLUME (BEAKER) (test xrsk=215) 9.5 fL 9.4-12.3 NUCLEATED RED BLOOD CELLS (BEAKER) (test 0 /100 WBC 0-0 stxz=968) NEUTROPHILS RELATIVE PERCENT (BEAKER) (test 59 % zbfm=478) LYMPHOCYTES RELATIVE PERCENT (BEAKER) (test 28 % imor=631) MONOCYTES RELATIVE PERCENT (BEAKER) (test 7 % zuqd=165) EOSINOPHILS RELATIVE PERCENT (BEAKER) (test 4 % olxv=666) BASOPHILS RELATIVE PERCENT (BEAKER) (test 1 % katz=489) NEUTROPHILS ABSOLUTE COUNT (BEAKER) (test 3.75 K/ L 1.56-6.13 exxf=658) LYMPHOCYTES ABSOLUTE COUNT (BEAKER) (test 1.80 K/ L 1.18-3.74 fkwf=584) MONOCYTES ABSOLUTE COUNT (BEAKER) (test 0.45 K/ L 0.24-0.36 vnbd=142) EOSINOPHILS ABSOLUTE COUNT (BEAKER) (test 0.25 K/ L 0.04-0.36 jqzj=276) BASOPHILS ABSOLUTE COUNT (BEAKER) (test 0.05 K/ L 0.01-0.08 zloh=394) IMMATURE GRANULOCYTES-RELATIVE PERCENT (BEAKER) 1 % 0-1 (test zjvt=8035) POCT-GLUCOSE [id number] 21:03:00 Test Item Value Reference Range Comments POC-GLUCOSE METER (BEAKER) 173 mg/dL 70-110 TESTED AT [address] (test hcye=7906) [place] [address] [id number] 18:15:00 Test Item Value Reference Range Comments ACTIVATED CLOTTING TIME 147 sec TESTED AT [address] (BEAKER) (test kfaf=101) [place] [address] [id number] 18:15:00 Test Item Value Reference Range Comments ACTIVATED CLOTTING TIME 246 sec TESTED AT [place] [address] [address] (BEAKER) (test nhzf=749) [place] [address] POCT-GLUCOSE [id number] 12:39:00 Test Item Value Reference Range Comments POC-GLUCOSE METER (BEAKER) 219 mg/dL 70-110 TESTED AT [address] (test sgsn=3463) [place] [address] RAD, CHEST, 1 VIEW, NON [id number] 10:11:00Reason for exam:->pl effusionShould this be performed at the bedside?->YesFINAL REPORT Chest one view compared to May 26 Discussion: There is cardiac prominence. Upper lungs are clear. Ill-defined basilar densities are similar probably atelectasis. No gross effusion or pneumothorax with bilateral chest tubes in place. Signed: Jeannette Nava Verified Date/Time: 2017 10:11:44 Reading Location: [facility] Radiology Reading Room POCT- GLUCOSE [id number] 07:05:00 Test Item Value Reference Range Comments POC-GLUCOSE METER (BEAKER) 167 mg/dL 70-110 TESTED AT [address] (test qjff=7896) [place] [address] CALCIUM, [id number] 06:20:00 Test Item Value Reference Range Comments CALCIUM IONIZED (BEAKER) (test rkfx=291) 0.98 mmol/L 1.12-1.27 PH, BLOOD (BEAKER) (test fplb=5916) 7.50 [id number] 04:56:00 Test Item Value Reference Range Comments PHOSPHORUS (BEAKER) (test tkie=974) 2.6 mg/dL 2.3-4.7 [id number] 04:56:00 Test Item Value Reference Range Comments MAGNESIUM (BEAKER) (test cyct=026) 2.0 mg/dL 1.6-2.6 BASIC METABOLIC [id number] 04:56:00 Test Item Value Reference Range Comments SODIUM (BEAKER) (test 135 meq/L 136-145 drfy=836) POTASSIUM (BEAKER) (test 4.5 meq/L 3.5-5.1 vonh=510) CHLORIDE (BEAKER) (test 105 meq/L 98-107 buhm=988) CO2 (BEAKER) (test 22 meq/L 22-29 smgv=128) BLOOD UREA NITROGEN 47 mg/dL 7-21 (BEAKER) (test vmhj=885) CREATININE (BEAKER) (test 1.44 mg/dL 0.57-1.25 vmwt=893) GLUCOSE RANDOM (BEAKER) 177 mg/dL 70-105 (test iblq=706) CALCIUM (BEAKER) (test 8.0 mg/dL 8.4-10.2 ameo=989) EGFR (BEAKER) (test 37 mL/min/1.73 sq m ESTIMATED GFR IS NOT xcnb=6531) ACCURATE CREATININE CLEARANCE IN PREDICTING GLOMERULAR FILTRATION RATE. ESTIMATED GFR IS NOT APPLICABLE FOR DIALYSIS PATIENTS. CBC W/PLT COUNT & AUTO [id number] 04:36:00 Test Item Value Reference Range Comments WHITE BLOOD CELL COUNT (BEAKER) (test ehtg=557) 6.1 K/ L 3.5-10.5 RED BLOOD CELL COUNT (BEAKER) (test sxya=909) 3.35 M/ L 3.93-5.22 HEMOGLOBIN (BEAKER) (test tccc=630) 8.6 GM/DL 11.2-15.7 HEMATOCRIT (BEAKER) (test uhch=388) 28.0 % 34.1-44.9 MEAN CORPUSCULAR VOLUME (BEAKER) (test xzpk=795) 83.6 fL 79.4-94.8 MEAN CORPUSCULAR HEMOGLOBIN (BEAKER) (test 25.7 pg 25.6-32.2 grkw=516) MEAN CORPUSCULAR HEMOGLOBIN CONC (BEAKER) (test 30.7 GM/DL 32.2-35.5 mrzr=273) RED CELL DISTRIBUTION WIDTH (BEAKER) (test 14.7 % 11.7-14.4 zomb=706) PLATELET COUNT (BEAKER) (test bgjy=184) 280 K/CU MM 150-450 MEAN PLATELET VOLUME (BEAKER) (test lqpf=615) 9.9 fL 9.4-12.3 NUCLEATED RED BLOOD CELLS (BEAKER) (test 0 /100 WBC 0-0 axbx=576) NEUTROPHILS RELATIVE PERCENT (BEAKER) (test 65 % dyrv=512) LYMPHOCYTES RELATIVE PERCENT (BEAKER) (test 23 % hifa=236) MONOCYTES RELATIVE PERCENT (BEAKER) (test 7 % yrvo=443) EOSINOPHILS RELATIVE PERCENT (BEAKER) (test 4 % fivy=719) BASOPHILS RELATIVE PERCENT (BEAKER) (test 1 % qgbl=572) NEUTROPHILS ABSOLUTE COUNT (BEAKER) (test 3.97 K/ L 1.56-6.13 worc=263) LYMPHOCYTES ABSOLUTE COUNT (BEAKER) (test 1.41 K/ L 1.18-3.74 pyyf=612) MONOCYTES ABSOLUTE COUNT (BEAKER) (test 0.44 K/ L 0.24-0.36 vtbf=379) EOSINOPHILS ABSOLUTE COUNT (BEAKER) (test 0.22 K/ L 0.04-0.36 love=496) BASOPHILS ABSOLUTE COUNT (BEAKER) (test 0.05 K/ L 0.01-0.08 kqzx=823) IMMATURE GRANULOCYTES-RELATIVE PERCENT (BEAKER) 1 % 0-1 (test efzu=8783) POCT-GLUCOSE [id number] 21:29:00 Test Item Value Reference Range Comments POC-GLUCOSE METER (BEAKER) 147 mg/dL 70-110 TESTED AT [address] (test jnmr=5952) [place] [address] POCT-GLUCOSE [id number] 17:51:00 Test Item Value Reference Range Comments POC-GLUCOSE METER (BEAKER) 224 mg/dL 70-110 TESTED AT [address] (test ocbn=1901) [place] [address] POCT-GLUCOSE [id number] 13:53:00 Test Item Value Reference Range Comments POC-GLUCOSE METER (BEAKER) 182 mg/dL 70-110 TESTED AT [address] (test jwsp=6279) [place] [address] RAD, CHEST, 1 VIEW, NON [id number] 08:44:00Reason for exam:->pl effusionShould this be performed [...] Verified Date/Time : 05/26/2017 08:44:25 Reading Location: [address] Radiology Reading Room POCT- GLUCOSE [id number] 07:43:00 Test Item Value Reference Range Comments POC-GLUCOSE METER (BEAKER) 113 mg/dL 70-110 TESTED AT [facility] [address] [facility] (test xlff=2735) [facility] [address] CALCIUM, [id number] 06:31:00 Test Item Value Reference Range Comments CALCIUM IONIZED (BEAKER) (test llsu=369) 1.07 mmol/L 1.12-1.27 PH, BLOOD (BEAKER) (test bdsm=7375) 7.38 [id number] 04:51:00 Test Item Value Reference Range Comments PHOSPHORUS (BEAKER) (test dxau=350) 3.2 mg/dL 2.3-4.7 [id number] 04:51:00 Test Item Value Reference Range Comments MAGNESIUM (BEAKER) (test mysj=809) 2.1 mg/dL 1.6-2.6 BASIC METABOLIC [id number] 04:51:00 Test Item Value Reference Range Comments SODIUM (BEAKER) (test 139 meq/L 136-145 qfpi=348) POTASSIUM (BEAKER) (test 4.1 meq/L 3.5-5.1 felp=965) CHLORIDE (BEAKER) (test 106 meq/L 98-107 lmem=289) CO2 (BEAKER) (test 24 meq/L 22-29 lokk=112) BLOOD UREA NITROGEN 52 mg/dL 7-21 (BEAKER) (test yfuv=672) CREATININE (BEAKER) (test 1.52 mg/dL 0.57-1.25 vmtg=535) GLUCOSE RANDOM (BEAKER) 108 mg/dL 70-105 (test fwgv=017) CALCIUM (BEAKER) (test 8.4 mg/dL 8.4-10.2 ivgv=730) EGFR (BEAKER) (test 35 mL/min/1.73 sq m ESTIMATED GFR IS NOT wtpe=6026) ACCURATE CREATININE CLEARANCE IN PREDICTING GLOMERULAR FILTRATION RATE. ESTIMATED GFR IS NOT APPLICABLE FOR DIALYSIS PATIENTS. CBC W/PLT COUNT & AUTO [id number] 04:27:00 Test Item Value Reference Range Comments WHITE BLOOD CELL COUNT (BEAKER) (test prhp=519) 7.2 K/ L 3.5-10.5 RED BLOOD CELL COUNT (BEAKER) (test qrhe=876) 3.53 M/ L 3.93-5.22 HEMOGLOBIN (BEAKER) (test kpww=080) 9.1 GM/DL 11.2-15.7 HEMATOCRIT (BEAKER) (test lmyi=843) 29.5 % 34.1-44.9 MEAN CORPUSCULAR VOLUME (BEAKER) (test xvwu=815) 83.6 fL 79.4-94.8 MEAN CORPUSCULAR HEMOGLOBIN (BEAKER) (test 25.8 pg 25.6-32.2 ztjw=701) MEAN CORPUSCULAR HEMOGLOBIN CONC (BEAKER) (test 30.8 GM/DL 32.2-35.5 jyjs=252) RED CELL DISTRIBUTION WIDTH (BEAKER) (test 14.6 % 11.7-14.4 seao=819) PLATELET COUNT (BEAKER) (test wvlo=845) 296 K/CU MM 150-450 MEAN PLATELET VOLUME (BEAKER) (test ptii=422) 9.5 fL 9.4-12.3 NUCLEATED RED BLOOD CELLS (BEAKER) (test 0 /100 WBC 0-0 ijoa=593) NEUTROPHILS RELATIVE PERCENT (BEAKER) (test 67 % pvqp=895) LYMPHOCYTES RELATIVE PERCENT (BEAKER) (test 21 % socj=203) MONOCYTES RELATIVE PERCENT (BEAKER) (test 7 % hgbd=438) EOSINOPHILS RELATIVE PERCENT (BEAKER) (test 4 % ndap=731) BASOPHILS RELATIVE PERCENT (BEAKER) (test 1 % vtlk=888) NEUTROPHILS ABSOLUTE COUNT (BEAKER) (test 4.79 K/ L 1.56-6.13 apyn=836) LYMPHOCYTES ABSOLUTE COUNT (BEAKER) (test 1.49 K/ L 1.18-3.74 nzbz=001) MONOCYTES ABSOLUTE COUNT (BEAKER) (test 0.50 K/ L 0.24-0.36 fhdn=378) EOSINOPHILS ABSOLUTE COUNT (BEAKER) (test 0.30 K/ L 0.04-0.36 chit=205) BASOPHILS ABSOLUTE COUNT (BEAKER) (test 0.05 K/ L 0.01-0.08 asbt=056) IMMATURE GRANULOCYTES-RELATIVE PERCENT (BEAKER) 0 % 0-1 (test zuik=9142) POCT-GLUCOSE [id number] 23:48:00 Test Item Value Reference Range Comments POC-GLUCOSE METER (BEAKER) 123 mg/dL 70-110 TESTED AT [address] (test ktms=5907) [place] [address] POCT-GLUCOSE [id number] 16:46:00 Test Item Value Reference Range Comments POC-GLUCOSE METER (BEAKER) 178 mg/dL 70-110 TESTED AT [address] (test rrqw=7411) [place] [address] BASIC METABOLIC [id number] 05:53:00 Test Item Value Reference Range Comments SODIUM (BEAKER) (test 139 meq/L 136-145 ugkd=310) POTASSIUM (BEAKER) (test 3.9 meq/L 3.5-5.1 mqmj=877) CHLORIDE (BEAKER) (test 106 meq/L 98-107 buew=833) CO2 (BEAKER) (test 23 meq/L 22-29 jzyt=880) BLOOD UREA NITROGEN 62 mg/dL 7-21 (BEAKER) (test acbp=116) CREATININE (BEAKER) (test 2.05 mg/dL 0.57-1.25 dcmq=202) GLUCOSE RANDOM (BEAKER) 87 mg/dL 70-105 (test uzmx=364) CALCIUM (BEAKER) (test 7.9 mg/dL 8.4-10.2 vhcm=508) EGFR (BEAKER) (test 25 mL/min/1.73 sq m ESTIMATED GFR IS NOT hxne=4310) ACCURATE CREATININE CLEARANCE IN PREDICTING GLOMERULAR FILTRATION RATE. ESTIMATED GFR IS NOT APPLICABLE FOR DIALYSIS PATIENTS. [id number] 05:52:00 Test Item Value Reference Range Comments PHOSPHORUS (BEAKER) (test tmvb=344) 4.2 mg/dL 2.3-4.7 [id number] 05:52:00 Test Item Value Reference Range Comments MAGNESIUM (BEAKER) (test zjlj=053) 2.3 mg/dL 1.6-2.6 CALCIUM, [id number] 05:27:00 Test Item Value Reference Range Comments CALCIUM IONIZED (BEAKER) (test hath=861) 1.12 mmol/L 1.12-1.27 PH, BLOOD (BEAKER) (test rrtf=1965) 7.38 CBC W/PLT COUNT & AUTO [id number] 05:07:00 Test Item Value Reference Range Comments WHITE BLOOD CELL COUNT (BEAKER) (test scxo=387) 8.4 K/ L 3.5-10.5 RED BLOOD CELL COUNT (BEAKER) (test ktip=835) 3.16 M/ L 3.93-5.22 HEMOGLOBIN (BEAKER) (test fzgk=295) 8.2 GM/DL 11.2-15.7 HEMATOCRIT (BEAKER) (test nxjv=658) 26.5 % 34.1-44.9 MEAN CORPUSCULAR VOLUME (BEAKER) (test eolk=826) 83.9 fL 79.4-94.8 MEAN CORPUSCULAR HEMOGLOBIN (BEAKER) (test 25.9 pg 25.6-32.2 zeph=068) MEAN CORPUSCULAR HEMOGLOBIN CONC (BEAKER) (test 30.9 GM/DL 32.2-35.5 qtwo=956) RED CELL DISTRIBUTION WIDTH (BEAKER) (test 14.6 % 11.7-14.4 lmde=653) PLATELET COUNT (BEAKER) (test tjry=803) 256 K/CU MM 150-450 MEAN PLATELET VOLUME (BEAKER) (test lbub=227) 10.0 fL 9.4-12.3 NUCLEATED RED BLOOD CELLS (BEAKER) (test 0 /100 WBC 0-0 ezqj=597) NEUTROPHILS RELATIVE PERCENT (BEAKER) (test 63 % pcjq=929) LYMPHOCYTES RELATIVE PERCENT (BEAKER) (test 25 % dizr=789) MONOCYTES RELATIVE PERCENT (BEAKER) (test 8 % svda=671) EOSINOPHILS RELATIVE PERCENT (BEAKER) (test 3 % pnwl=217) BASOPHILS RELATIVE PERCENT (BEAKER) (test 1 % iucc=449) NEUTROPHILS ABSOLUTE COUNT (BEAKER) (test 5.27 K/ L 1.56-6.13 bxac=483) LYMPHOCYTES ABSOLUTE COUNT (BEAKER) (test 2.09 K/ L 1.18-3.74 ysqe=314) MONOCYTES ABSOLUTE COUNT (BEAKER) (test 0.63 K/ L 0.24-0.36 nddv=301) EOSINOPHILS ABSOLUTE COUNT (BEAKER) (test 0.27 K/ L 0.04-0.36 jjkj=386) BASOPHILS ABSOLUTE COUNT (BEAKER) (test 0.05 K/ L 0.01-0.08 dziw=194) IMMATURE GRANULOCYTES-RELATIVE PERCENT (BEAKER) 1 % 0-1 (test ipjt=4334) RAD, CHEST, 1 VIEW, NON [id number] 04:45:00Reason for exam:->pl effusionShould this be performed [...] MDReport Verified Date/Time: 05/25/2017 04:45:08 Reading Location: [address] Body Reading Room POCT-GLUCOSE [id number] 01:52:00 Test Item Value Reference Range Comments POC-GLUCOSE METER (BEAKER) 126 mg/dL 70-110 TESTED AT [address] (test eueb=9965) [facility] [address] POCT-GLUCOSE [id number] 13:07:00 Test Item Value Reference Range Comments POC-GLUCOSE METER (BEAKER) 118 mg/dL 70-110 TESTED AT [place] [id number] [facility] (test xxbj=2816) [facility] [address] BRONCHIAL CULTURE + GRAM [id number] 11:35:00 Test Item Value Reference Range Comments CULTURE (BEAKER) (test jgrd=4291) Amikacin (test code=1) Susceptible 0-16 , Resistant [...] >40 code=47) CULTURE (BEAKER) (test 4+ Bordetella aenw=3562) bronchiseptica GRAM STAIN RESULT 1+ WBCs (BEAKER) (test wxws=2287) GRAM STAIN RESULT <1+ gram positive (BEAKER) (test cocci in pairs dzpj=901531) GRAM STAIN RESULT 1+ gram variable (BEAKER) (test rods awuv=200113) 1+ Normal respiratory todd presentRAD, CHEST, 1 VIEW, NON [id number] 06:50: 00Reason for exam:->pl effusionShould this be [...] MDReport Verified Date/Time: 05/24/2017 06:50:08 Reading Location: [address] Body Reading Room BASIC METABOLIC [id number] 04: 19:00 Test Item Value Reference Range Comments SODIUM (BEAKER) (test 136 meq/L 136-145 uudb=636) POTASSIUM (BEAKER) (test 4.3 meq/L 3.5-5.1 lahm=395) CHLORIDE (BEAKER) (test 104 meq/L 98-107 ybnf=459) CO2 (BEAKER) (test 20 meq/L 22-29 dlhi=448) BLOOD UREA NITROGEN 61 mg/dL 7-21 (BEAKER) (test vzne=398) CREATININE (BEAKER) (test 2.69 mg/dL 0.57-1.25 eofu=724) GLUCOSE RANDOM (BEAKER) 107 mg/dL 70-105 (test dlir=385) CALCIUM (BEAKER) (test 7.8 mg/dL 8.4-10.2 phvb=146) EGFR (BEAKER) (test 18 mL/min/1.73 sq m ESTIMATED GFR IS NOT angu=7308) ACCURATE CREATININE CLEARANCE IN PREDICTING GLOMERULAR FILTRATION RATE. ESTIMATED GFR IS NOT APPLICABLE FOR DIALYSIS PATIENTS. CALCIUM, [id number] 04:16:00 Test Item Value Reference Range Comments CALCIUM IONIZED (BEAKER) (test ulua=959) 1.06 mmol/L 1.12-1.27 PH, BLOOD (BEAKER) (test svhb=7065) 7.40 [id number] 04:11:00 Test Item Value Reference Range Comments PHOSPHORUS (BEAKER) (test rhuk=663) 6.0 mg/dL 2.3-4.7 [id number] 04:11:00 Test Item Value Reference Range Comments MAGNESIUM (BEAKER) (test eghf=064) 2.4 mg/dL 1.6-2.6 CBC W/PLT COUNT & AUTO [id number] 03:50:00 Test Item Value Reference Range Comments WHITE BLOOD CELL COUNT (BEAKER) (test udsq=589) 9.5 K/ L 3.5-10.5 RED BLOOD CELL COUNT (BEAKER) (test lnwg=396) 3.06 M/ L 3.93-5.22 HEMOGLOBIN (BEAKER) (test vqfg=520) 7.9 GM/DL 11.2-15.7 HEMATOCRIT (BEAKER) (test kbpz=545) 25.5 % 34.1-44.9 MEAN CORPUSCULAR VOLUME (BEAKER) (test frdx=286) 83.3 fL 79.4-94.8 MEAN CORPUSCULAR HEMOGLOBIN (BEAKER) (test 25.8 pg 25.6-32.2 xpwa=721) MEAN CORPUSCULAR HEMOGLOBIN CONC (BEAKER) (test 31.0 GM/DL 32.2-35.5 jozl=683) RED CELL DISTRIBUTION WIDTH (BEAKER) (test 15.1 % 11.7-14.4 nxkz=843) PLATELET COUNT (BEAKER) (test dncl=480) 224 K/CU MM 150-450 MEAN PLATELET VOLUME (BEAKER) (test mlky=946) 10.5 fL 9.4-12.3 NUCLEATED RED BLOOD CELLS (BEAKER) (test 0 /100 WBC 0-0 qrmh=090) NEUTROPHILS RELATIVE PERCENT (BEAKER) (test 70 % llxg=439) LYMPHOCYTES RELATIVE PERCENT (BEAKER) (test 21 % apbg=437) MONOCYTES RELATIVE PERCENT (BEAKER) (test 7 % heeo=522) EOSINOPHILS RELATIVE PERCENT (BEAKER) (test 2 % knnw=440) BASOPHILS RELATIVE PERCENT (BEAKER) (test 0 % ofni=576) NEUTROPHILS ABSOLUTE COUNT (BEAKER) (test 6.60 K/ L 1.56-6.13 xbea=934) LYMPHOCYTES ABSOLUTE COUNT (BEAKER) (test 2.02 K/ L 1.18-3.74 ccds=272) MONOCYTES ABSOLUTE COUNT (BEAKER) (test 0.63 K/ L 0.24-0.36 larm=876) EOSINOPHILS ABSOLUTE COUNT (BEAKER) (test 0.15 K/ L 0.04-0.36 uxvu=452) BASOPHILS ABSOLUTE COUNT (BEAKER) (test 0.04 K/ L 0.01-0.08 mwid=729) IMMATURE GRANULOCYTES-RELATIVE PERCENT (BEAKER) 0 % 0-1 (test tpnj=2453) POCT-GLUCOSE [id number] 20:45:00 Test Item Value Reference Range Comments POC-GLUCOSE METER (BEAKER) 143 mg/dL 70-110 TESTED AT [place] [address] [address] (test vgaz=8747) [facility] [address] POCT-GLUCOSE [id number] 20:45:00 Test Item Value Reference Range Comments POC-GLUCOSE METER (BEAKER) 145 mg/dL 70-110 TESTED AT [place] [address] [address] (test drpc=7019) [facility] [address] [id number] 13:37:00 Test Item Value Reference Range Comments PREALBUMIN (BEAKER) (test 10 mg/dL 14-45 Specimen slightly hemolyzed qfkn=671) OXYGEN SATURATION, [id number] 12:31:00 Test Item Value Reference Range Comments O2 SATURATION (MEASURED) (BEAKER) (test kfin=8303) 94.5 % [id number] 11:02:00 Test Item Value Reference Range Comments PREALBUMIN (BEAKER) (test bagl=999) 10 mg/dL 14-45 RAD, CHEST, 1 VIEW, NON [id number] 05:14:00while patient is intubated or has chest [...] MDReport Verified Date/Time: 05/23/2017 05:14:04 Reading Location: [address] Body Reading Room BASIC METABOLIC [id number] 03:48:00 Test Item Value Reference Range Comments SODIUM (BEAKER) (test 138 meq/L 136-145 chcs=733) POTASSIUM (BEAKER) (test 4.6 meq/L 3.5-5.1 Specimen slightly rhdy=348) hemolyzed CHLORIDE (BEAKER) (test 106 meq/L 98-107 naxx=617) CO2 (BEAKER) (test 20 meq/L 22-29 dwms=705) BLOOD UREA NITROGEN 54 mg/dL 7-21 (BEAKER) (test swvz=771) CREATININE (BEAKER) (test 2.66 mg/dL 0.57-1.25 Specimen slightly upel=598) hemolyzed GLUCOSE RANDOM (BEAKER) 113 mg/dL 70-105 (test nnmz=999) CALCIUM (BEAKER) (test 7.9 mg/dL 8.4-10.2 hehf=668) EGFR (BEAKER) (test 18 mL/min/1.73 sq m ESTIMATED GFR IS NOT yxbg=8686) ACCURATE CREATININE CLEARANCE IN PREDICTING GLOMERULAR FILTRATION RATE. ESTIMATED GFR IS NOT APPLICABLE FOR DIALYSIS PATIENTS. [id number] 03:46:00 Test Item Value Reference Range Comments MAGNESIUM (BEAKER) (test 2.4 mg/dL 1.6-2.6 Specimen slightly hemolyzed bxvf=340) [id number] 03:46:00 Test Item Value Reference Range Comments PHOSPHORUS (BEAKER) (test 6.5 mg/dL 2.3-4.7 Specimen slightly hemolyzed zwzg=430) CBC W/PLT COUNT & AUTO [id number] 03:26:00 Test Item Value Reference Range Comments WHITE BLOOD CELL COUNT (BEAKER) (test rlyn=565) 10.8 K/ L 3.5-10.5 RED BLOOD CELL COUNT (BEAKER) (test zqzs=866) 3.16 M/ L 3.93-5.22 HEMOGLOBIN (BEAKER) (test nhbv=449) 8.2 GM/DL 11.2-15.7 HEMATOCRIT (BEAKER) (test bmvc=397) 26.6 % 34.1-44.9 MEAN CORPUSCULAR VOLUME (BEAKER) (test bfmg=157) 84.2 fL 79.4-94.8 MEAN CORPUSCULAR HEMOGLOBIN (BEAKER) (test 25.9 pg 25.6-32.2 epnd=877) MEAN CORPUSCULAR HEMOGLOBIN CONC (BEAKER) (test 30.8 GM/DL 32.2-35.5 kqmd=643) RED CELL DISTRIBUTION WIDTH (BEAKER) (test 15.0 % 11.7-14.4 xlpx=629) PLATELET COUNT (BEAKER) (test xvqs=651) 195 K/CU MM 150-450 MEAN PLATELET VOLUME (BEAKER) (test rgrz=837) 10.6 fL 9.4-12.3 NUCLEATED RED BLOOD CELLS (BEAKER) (test 0 /100 WBC 0-0 xhnf=113) NEUTROPHILS RELATIVE PERCENT (BEAKER) (test 73 % yiyq=424) LYMPHOCYTES RELATIVE PERCENT (BEAKER) (test 18 % antp=958) MONOCYTES RELATIVE PERCENT (BEAKER) (test 6 % whii=007) EOSINOPHILS RELATIVE PERCENT (BEAKER) (test 2 % wwau=802) BASOPHILS RELATIVE PERCENT (BEAKER) (test 1 % obdv=032) NEUTROPHILS ABSOLUTE COUNT (BEAKER) (test 7.95 K/ L 1.56-6.13 nawc=802) LYMPHOCYTES ABSOLUTE COUNT (BEAKER) (test 1.93 K/ L 1.18-3.74 crpq=921) MONOCYTES ABSOLUTE COUNT (BEAKER) (test 0.66 K/ L 0.24-0.36 vxrz=154) EOSINOPHILS ABSOLUTE COUNT (BEAKER) (test 0.18 K/ L 0.04-0.36 mlip=672) BASOPHILS ABSOLUTE COUNT (BEAKER) (test 0.07 K/ L 0.01-0.08 wfce=832) IMMATURE GRANULOCYTES-RELATIVE PERCENT (BEAKER) 0 % 0-1 (test gjak=6019) BLOOD GAS, [id number] 03:18:00 Test Item Value Reference Range Comments PH ARTERIAL (BEAKER) (test rdon=064) 7.40 7.35-7.45 PCO2 ARTERIAL (BEAKER) (test obnq=844) 40 mmHg 35-45 PO2 ARTERIAL (BEAKER) (test wihk=977) 63 mmHg 80-90 O2 SATURATION ARTERIAL (BEAKER) (test fgxu=655) 92.3 % 96.0-97.0 HCO3 ARTERIAL (BEAKER) (test fclw=549) 24 mmol/L 21-29 BASE EXCESS ARTERIAL (BEAKER) (test mgsu=560) -0.6 mmol/L -2.0-3.0 PATIENT TEMPERATURE (BEAKER) (test qpfy=9782) 36.8 C FIO2 (BEAKER) (test kboz=5538) 36.0 % CALCIUM, [id number] 16:32:00 Test Item Value Reference Range Comments CALCIUM IONIZED (BEAKER) (test vbnx=152) 1.11 mmol/L 1.12-1.27 PH, BLOOD (BEAKER) (test qvoq=6005) 7.39 BASIC METABOLIC [id number] 15:43:00 Test Item Value Reference Range Comments SODIUM (BEAKER) (test 139 meq/L 136-145 jggf=627) POTASSIUM (BEAKER) (test 4.6 meq/L 3.5-5.1 xqyg=424) CHLORIDE (BEAKER) (test 106 meq/L 98-107 hbvi=415) CO2 (BEAKER) (test 21 meq/L 22-29 puum=968) BLOOD UREA NITROGEN 54 mg/dL 7-21 (BEAKER) (test htos=452) CREATININE (BEAKER) (test 3.08 mg/dL 0.57-1.25 ttlh=672) GLUCOSE RANDOM (BEAKER) 116 mg/dL 70-105 (test okxb=739) CALCIUM (BEAKER) (test 8.1 mg/dL 8.4-10.2 hzgv=502) EGFR (BEAKER) (test 15 mL/min/1.73 sq m ESTIMATED GFR IS NOT rhmu=8473) ACCURATE CREATININE CLEARANCE IN PREDICTING GLOMERULAR FILTRATION RATE. ESTIMATED GFR IS NOT APPLICABLE FOR DIALYSIS PATIENTS. POCT-GLUCOSE [id number] 12:53:00 Test Item Value Reference Range Comments POC-GLUCOSE METER (BEAKER) 118 mg/dL 70-110 TESTED AT [address] (test elmp=2594) [place] [id number] BLOOD GAS, [id number] 10:42:00 Test Item Value Reference Range Comments PH ARTERIAL (BEAKER) (test ystg=357) 7.40 7.35-7.45 PCO2 ARTERIAL (BEAKER) (test tgox=015) 38 mmHg 35-45 PO2 ARTERIAL (BEAKER) (test tstj=102) 78 mmHg 80-90 O2 SATURATION ARTERIAL (BEAKER) (test jsgk=998) 95.6 % 96.0-97.0 HCO3 ARTERIAL (BEAKER) (test muxb=426) 23 mmol/L 21-29 BASE EXCESS ARTERIAL (BEAKER) (test zjix=288) -1.4 mmol/L -2.0-3.0 PATIENT TEMPERATURE (BEAKER) (test zmwl=9031) 36.9 C FIO2 (BEAKER) (test dsnm=6093) 40.0 % POCT-GLUCOSE [id number] 06:46:00 Test Item Value Reference Range Comments POC-GLUCOSE METER (BEAKER) 106 mg/dL 70-110 TESTED AT [address] (test lvcx=5793) [place] [id number] RAD, CHEST, 1 VIEW, NON [id number] 05:05:00while patient is intubated or has chest [...] MDReport Verified Date/Time: 05/22/2017 05:05:00 Reading Location: [facility] C013Y CT Body ReadingRoom BASIC METABOLIC [id number] 05:00:00 Test Item Value Reference Range Comments SODIUM (BEAKER) (test 138 meq/L 136-145 hovk=652) POTASSIUM (BEAKER) (test 4.5 meq/L 3.5-5.1 riyv=061) CHLORIDE (BEAKER) (test 107 meq/L 98-107 zkrf=908) CO2 (BEAKER) (test 21 meq/L 22-29 lhgx=251) BLOOD UREA NITROGEN 53 mg/dL 7-21 (BEAKER) (test iiwt=174) CREATININE (BEAKER) (test 3.23 mg/dL 0.57-1.25 joip=700) GLUCOSE RANDOM (BEAKER) 126 mg/dL 70-105 (test vjzk=747) CALCIUM (BEAKER) (test 8.1 mg/dL 8.4-10.2 lrfa=901) EGFR (BEAKER) (test 15 mL/min/1.73 sq m ESTIMATED GFR IS NOT gbsm=4114) ACCURATE CREATININE CLEARANCE IN PREDICTING GLOMERULAR FILTRATION RATE. ESTIMATED GFR IS NOT APPLICABLE FOR DIALYSIS PATIENTS. [id number] 04:41:00 Test Item Value Reference Range Comments PHOSPHORUS (BEAKER) (test owwr=063) 6.4 mg/dL 2.3-4.7 [id number] 04:41:00 Test Item Value Reference Range Comments MAGNESIUM (BEAKER) (test nbub=750) 2.6 mg/dL 1.6-2.6 CALCIUM, [id number] 04:26:00 Test Item Value Reference Range Comments CALCIUM IONIZED (BEAKER) (test umgk=350) 1.09 mmol/L 1.12-1.27 PH, BLOOD (BEAKER) (test nqmr=5123) 7.40 OXYGEN SATURATION, [id number] 04:25:00 Test Item Value Reference Range Comments O2 SATURATION (MEASURED) (BEAKER) (test mmfv=0410) 77.0 % CBC W/PLT COUNT & AUTO [id number] 04:17:00 Test Item Value Reference Range Comments WHITE BLOOD CELL COUNT (BEAKER) (test ewul=195) 8.9 K/ L 3.5-10.5 RED BLOOD CELL COUNT (BEAKER) (test evdt=141) 3.14 M/ L 3.93-5.22 HEMOGLOBIN (BEAKER) (test pkjo=300) 8.1 GM/DL 11.2-15.7 HEMATOCRIT (BEAKER) (test jjwh=194) 26.1 % 34.1-44.9 MEAN CORPUSCULAR VOLUME (BEAKER) (test tcmp=325) 83.1 fL 79.4-94.8 MEAN CORPUSCULAR HEMOGLOBIN (BEAKER) (test 25.8 pg 25.6-32.2 kutj=634) MEAN CORPUSCULAR HEMOGLOBIN CONC (BEAKER) (test 31.0 GM/DL 32.2-35.5 cwvn=890) RED CELL DISTRIBUTION WIDTH (BEAKER) (test 15.3 % 11.7-14.4 xbpq=531) PLATELET COUNT (BEAKER) (test trtc=524) 156 K/CU MM 150-450 MEAN PLATELET VOLUME (BEAKER) (test xmpm=906) 10.2 fL 9.4-12.3 NUCLEATED RED BLOOD CELLS (BEAKER) (test 0 /100 WBC 0-0 pokd=228) NEUTROPHILS RELATIVE PERCENT (BEAKER) (test 68 % meqi=568) LYMPHOCYTES RELATIVE PERCENT (BEAKER) (test 22 % vhta=037) MONOCYTES RELATIVE PERCENT (BEAKER) (test 8 % ixfb=383) EOSINOPHILS RELATIVE PERCENT (BEAKER) (test 1 % xiby=494) BASOPHILS RELATIVE PERCENT (BEAKER) (test 1 % weqn=535) NEUTROPHILS ABSOLUTE COUNT (BEAKER) (test 6.05 K/ L 1.56-6.13 rpnm=730) LYMPHOCYTES ABSOLUTE COUNT (BEAKER) (test 1.91 K/ L 1.18-3.74 rndp=093) MONOCYTES ABSOLUTE COUNT (BEAKER) (test 0.74 K/ L 0.24-0.36 jcqg=471) EOSINOPHILS ABSOLUTE COUNT (BEAKER) (test 0.08 K/ L 0.04-0.36 tekv=427) BASOPHILS ABSOLUTE COUNT (BEAKER) (test 0.05 K/ L 0.01-0.08 kqpn=628) IMMATURE GRANULOCYTES-RELATIVE PERCENT (BEAKER) 0 % 0-1 (test fceo=3077) LACTIC ACID, ARTERIAL, WHOLE [id number] 00:07:00 Test Item Value Reference Range Comments LACTATE BLOOD ARTERIAL (2) 1.0 mmol/L 0.5-2.2 Specimen slightly hemolyzed (BEAKER) (test hdzr=9102) Effective 08/02/2015: Units/Reference Range ChangeNew: 0.5-2.2 mmol/L Previous: 5 -20 mg/dLPOCT-GLUCOSE [id number] 23:47:00 Test Item Value Reference Range Comments POC-GLUCOSE METER (BEAKER) 180 mg/dL 70-110 TESTED AT [facility] [address] [facility] (test iaxp=5323) [facility] [address] BLOOD GAS, [id number] 23:46:00 Test Item Value Reference Range Comments PH ARTERIAL (BEAKER) (test fqjt=932) 7.40 7.35-7.45 PCO2 ARTERIAL (BEAKER) (test qvex=412) 37 mmHg 35-45 PO2 ARTERIAL (BEAKER) (test wygx=909) 136 mmHg 80-90 O2 SATURATION ARTERIAL (BEAKER) (test pwpu=782) 98.7 % 96.0-97.0 HCO3 ARTERIAL (BEAKER) (test nocq=123) 22 mmol/L 21-29 BASE EXCESS ARTERIAL (BEAKER) (test bsyt=740) -2.4 mmol/L -2.0-3.0 PATIENT TEMPERATURE (BEAKER) (test pyzt=2922) 37.0 C FIO2 (BEAKER) (test ugip=1045) 100.0 % SODIUM NA-STAT [id number] 23:46:00 Test Item Value Reference Range Comments SODIUM (BEAKER) (test thfh=430) 134 meq/L 135-148 GLUCOSE-STAT [id number] 23:46:00 Test Item Value Reference Range Comments GLUCOSE RANDOM (BEAKER) (test ftyq=775) 119 mg/dL 70-110 HGB/HCT (H&H) - STAT [id number] 23:46:00 Test Item Value Reference Range Comments HEMOGLOBIN (BEAKER) (test kyhg=088) 8.8 g/dL 12.0-15.0 HEMATOCRIT (BEAKER) (test bvsk=575) 26.0 % 36.0-45.0 OXYGEN SATURATION, [id number] 23:45:00 Test Item Value Reference Range Comments O2 SATURATION (MEASURED) (BEAKER) (test bwzw=1060) 68.1 % POTASSIUM-STAT [id number] 23:45:00 Test Item Value Reference Range Comments POTASSIUM (BEAKER) (test jnoo=708) 5.5 meq/L 3.6-5.5 POCT-GLUCOSE [id number] 20:58:00 Test Item Value Reference Range Comments POC-GLUCOSE METER (BEAKER) 133 mg/dL 70-110 TESTED AT [address] (test zzzk=8352) [facility] [address] POCT-GLUCOSE [id number] 17:58:00 Test Item Value Reference Range Comments POC-GLUCOSE METER (BEAKER) 210 mg/dL 70-110 TESTED AT [address] (test geyn=4651) [facility] [address] POCT-GLUCOSE [id number] 17:58:00 Test Item Value Reference Range Comments POC-GLUCOSE METER (BEAKER) 211 mg/dL 70-110 TESTED AT [address] (test teot=3540) [facility] [address] POCT-GLUCOSE [id number] 17:58:00 Test Item Value Reference Range Comments POC-GLUCOSE METER (BEAKER) 232 mg/dL 70-110 TESTED AT [address] (test crzr=9752) [facility] [address] POCT-GLUCOSE [id number] 17:58:00 Test Item Value Reference Range Comments POC-GLUCOSE METER (BEAKER) 262 mg/dL 70-110 TESTED AT [address] (test mwwu=0735) [place] [id number] BLOOD GAS, [id number] 17:01:00 Test Item Value Reference Range Comments PH ARTERIAL (BEAKER) (test ybfu=878) 7.38 7.35-7.45 PCO2 ARTERIAL (BEAKER) (test vaee=630) 39 mmHg 35-45 PO2 ARTERIAL (BEAKER) (test dwja=981) 75 mmHg 80-90 O2 SATURATION ARTERIAL (BEAKER) (test zfsg=211) 94.9 % 96.0-97.0 HCO3 ARTERIAL (BEAKER) (test nikm=364) 23 mmol/L 21-29 BASE EXCESS ARTERIAL (BEAKER) (test kkax=637) -2.5 mmol/L -2.0-3.0 PATIENT TEMPERATURE (BEAKER) (test wcdk=4269) 36.8 C FIO2 (BEAKER) (test tbsj=9004) 60.0 % POTASSIUM-STAT [id number] 17:00:00 Test Item Value Reference Range Comments POTASSIUM (BEAKER) (test zmpc=091) 4.8 meq/L 3.6-5.5 POCT-GLUCOSE [id number] 15:52:00 Test Item Value Reference Range Comments POC-GLUCOSE METER (BEAKER) 267 mg/dL 70-110 TESTED AT [address] (test skqm=7370) [place] [address] POCT-GLUCOSE [id number] 14:42:00 Test Item Value Reference Range Comments POC-GLUCOSE METER (BEAKER) 231 mg/dL 70-110 TESTED AT [address] (test pbaw=9736) [place] [address] BODY FLUID CELL COUNT WITH [id number] 14:41:00 Test Item Value Reference Range Comments APPEARANCE FLUID (BEAKER) (test epyt=920) Turbid Clear COLOR FLUID (BEAKER) (test fvsq=832) Colorless Colorless, Straw RBC FLUID (BEAKER) (test vwni=742) 2000 /cu mm <=1 ADJUSTED WBC FLUID (BEAKER) (test ceix=1363) 1489 /cu mm <=5 LINING CELLS (BEAKER) (test wprd=0677) 119 /cu mm <=1 NEUTROPHILS FLUID (BEAKER) (test zvvg=5381) 40 % LYMPHS FLUID (BEAKER) (test vnfx=690) 34 % MONO/MACROPHAGE FLUID (BEAKER) (test chzy=804) 26 % EOSINOPHILS FLUID (BEAKER) (test zbzi=426) 0 % BASO FLUID (BEAKER) (test wvxz=193) 0 % CONTAINER BODY FLUID (BEAKER) (test fzal=2174) EDTA Tube BASIC METABOLIC [id number] 14:11:00 Test Item Value Reference Range Comments SODIUM (BEAKER) (test 137 meq/L 136-145 efxd=511) POTASSIUM (BEAKER) (test 5.6 meq/L 3.5-5.1 xyed=972) CHLORIDE (BEAKER) (test 106 meq/L 98-107 fygf=016) CO2 (BEAKER) (test 20 meq/L 22-29 kivg=997) BLOOD UREA NITROGEN 48 mg/dL 7-21 (BEAKER) (test arst=201) CREATININE (BEAKER) (test 2.50 mg/dL 0.57-1.25 ieiw=996) GLUCOSE RANDOM (BEAKER) 221 mg/dL 70-105 (test xkrd=525) CALCIUM (BEAKER) (test 8.1 mg/dL 8.4-10.2 vhou=445) EGFR (BEAKER) (test 20 mL/min/1.73 sq m ESTIMATED GFR IS NOT oqgh=8275) ACCURATE CREATININE CLEARANCE IN PREDICTING GLOMERULAR FILTRATION RATE. ESTIMATED GFR IS NOT APPLICABLE FOR DIALYSIS PATIENTS. [id number] 14:08:00 Test Item Value Reference Range Comments PHOSPHORUS (BEAKER) (test uvzr=591) 7.2 mg/dL 2.3-4.7 [id number] 14:08:00 Test Item Value Reference Range Comments MAGNESIUM (BEAKER) (test ddji=780) 2.6 mg/dL 1.6-2.6 POCT-GLUCOSE [id number] 12:49:00 Test Item Value Reference Range Comments POC-GLUCOSE METER (BEAKER) 224 mg/dL 70-110 TESTED AT [facility] [address] (test jzgd=6708) [facility] [address] POCT-GLUCOSE [id number] 12:49:00 Test Item Value Reference Range Comments POC-GLUCOSE METER (BEAKER) 248 mg/dL 70-110 TESTED AT [facility] [address] (test onov=5010) [facility] [address] RAD, CHEST, 1 VIEW, NON [id number] 12:32:00Reason for exam:->re- intubationShould this be performed [...] MDReport Verified Date/Time: 05/21/2017 12:32:08 Reading Location: [facility] Radiology Reading Room POTASSIUM-STAT [id number] 12:28:00 Test Item Value Reference Range Comments POTASSIUM (BEAKER) (test sblt=538) 5.5 meq/L 3.6-5.5 BLOOD GAS, [id number] 12:28:00 Test Item Value Reference Range Comments PH ARTERIAL (BEAKER) (test rwfj=160) 7.32 7.35-7.45 PCO2 ARTERIAL (BEAKER) (test vhyl=110) 45 mmHg 35-45 PO2 ARTERIAL (BEAKER) (test iirv=720) 304 mmHg 80-90 O2 SATURATION ARTERIAL (BEAKER) (test yruv=971) 99.7 % 96.0-97.0 HCO3 ARTERIAL (BEAKER) (test vdyz=834) 22 mmol/L 21-29 BASE EXCESS ARTERIAL (BEAKER) (test mykh=449) -3.7 mmol/L -2.0-3.0 PATIENT TEMPERATURE (BEAKER) (test xdyp=7834) 37.0 C FIO2 (BEAKER) (test zfwy=0072) 100.0 % BLOOD GAS, [id number] 10:53:00 Test Item Value Reference Range Comments PH ARTERIAL (BEAKER) (test iyds=334) 7.36 7.35-7.45 PCO2 ARTERIAL (BEAKER) (test iaem=730) 35 mmHg 35-45 PO2 ARTERIAL (BEAKER) (test tijk=857) 40 mmHg 80-90 O2 SATURATION ARTERIAL (BEAKER) (test tezf=579) 82.3 % 96.0-97.0 HCO3 ARTERIAL (BEAKER) (test bmdh=915) 20 mmol/L 21-29 BASE EXCESS ARTERIAL (BEAKER) (test jkzh=773) -5.9 mmol/L -2.0-3.0 PATIENT TEMPERATURE (BEAKER) (test qpnh=9141) 33.7 C FIO2 (BEAKER) (test avia=3056) 36.0 % RAD, CHEST, 1 VIEW, NON [id number] 08:46:00while patient is intubated or has chest [...] Verified Date/ Time: 05/21/2017 08:46:27 Reading Location: [facility] Radiology Reading Room BLOOD GAS, [id number] 05:41:00 Test Item Value Reference Range Comments PH ARTERIAL (BEAKER) (test csen=132) 7.33 7.35-7.45 PCO2 ARTERIAL (BEAKER) (test razw=970) 40 mm Hg 35-45 PO2 ARTERIAL (BEAKER) (test mbei=214) 106 mm Hg 80-90 O2 SATURATION ARTERIAL (BEAKER) (test tast=949) 97.5 % 96.0-97.0 HCO3 ARTERIAL (BEAKER) (test rouy=968) 21 mmol/L 21-29 BASE EXCESS ARTERIAL (BEAKER) (test obfb=558) -5.1 mmol/L -2.0-3.0 PATIENT TEMPERATURE (BEAKER) (test mydp=1730) 37.0 FIO2 (BEAKER) (test ashy=3408) 40 CALCIUM, [id number] 04:35:00 Test Item Value Reference Range Comments CALCIUM IONIZED (BEAKER) (test lbch=257) 1.13 mmol/L 1.12-1.27 PH, BLOOD (BEAKER) (test nnaa=1172) 7.32 BLOOD GAS, [id number] 04:28:00 Test Item Value Reference Range Comments PH ARTERIAL (BEAKER) (test hvlw=532) 7.32 7.35-7.45 PCO2 ARTERIAL (BEAKER) (test gyue=393) 40 mmHg 35-45 PO2 ARTERIAL (BEAKER) (test bvki=725) 100 mmHg 80-90 O2 SATURATION ARTERIAL (BEAKER) (test pqcq=362) 97.2 % 96.0-97.0 HCO3 ARTERIAL (BEAKER) (test edzj=397) 20 mmol/L 21-29 BASE EXCESS ARTERIAL (BEAKER) (test dayw=512) -5.7 mmol/L -2.0-3.0 PATIENT TEMPERATURE (BEAKER) (test iwec=7794) 36.9 C FIO2 (BEAKER) (test zisv=5942) 40.0 % [id number] 04:20:00 Test Item Value Reference Range Comments PHOSPHORUS (BEAKER) (test ydwg=509) 6.2 mg/dL 2.3-4.7 [id number] 04:20:00 Test Item Value Reference Range Comments MAGNESIUM (BEAKER) (test goji=998) 2.4 mg/dL 1.6-2.6 HEPATIC FUNCTION [id number] 04:20:00 Test Item Value Reference Range Comments TOTAL PROTEIN (BEAKER) (test wluu=954) 4.8 gm/dL 6.0-8.3 ALBUMIN (BEAKER) (test tnes=2743) 2.5 g/dL 3.5-5.0 BILIRUBIN TOTAL (BEAKER) (test cdtz=862) 0.7 mg/dL 0.2-1.2 BILIRUBIN DIRECT (BEAKER) (test cmlj=378) 0.3 mg/dL 0.1-0.5 ALKALINE PHOSPHATASE (BEAKER) (test tfye=465) 96 U/L 40-150 AST (SGOT) (BEAKER) (test pcie=468) 31 U/L 5-34 ALT (SGPT) (BEAKER) (test lqae=351) 11 U/L 6-55 BASIC METABOLIC [id number] 04:20:00 Test Item Value Reference Range Comments SODIUM (BEAKER) (test 134 meq/L 136-145 yerc=992) POTASSIUM (BEAKER) (test 5.0 meq/L 3.5-5.1 ajvp=868) CHLORIDE (BEAKER) (test 105 meq/L 98-107 ubbi=325) CO2 (BEAKER) (test 18 meq/L 22-29 qojq=059) BLOOD UREA NITROGEN 45 mg/dL 7-21 (BEAKER) (test ebls=025) CREATININE (BEAKER) (test 1.91 mg/dL 0.57-1.25 nddu=475) GLUCOSE RANDOM (BEAKER) 247 mg/dL 70-105 (test zvgo=159) CALCIUM (BEAKER) (test 7.9 mg/dL 8.4-10.2 gisg=541) EGFR (BEAKER) (test 27 mL/min/1.73 sq m ESTIMATED GFR IS NOT okqs=6969) ACCURATE CREATININE CLEARANCE IN PREDICTING GLOMERULAR FILTRATION RATE. ESTIMATED GFR IS NOT APPLICABLE FOR DIALYSIS PATIENTS. OXYGEN SATURATION, [id number] 04:18:00 Test Item Value Reference Range Comments O2 SATURATION (MEASURED) (BEAKER) (test ygok=5014) 68.0 % LACTIC ACID, ARTERIAL, WHOLE [id number] 04:12:00 Test Item Value Reference Range Comments LACTATE BLOOD ARTERIAL (2) (BEAKER) (test 1.0 mmol/L 0.5-2.2 snbq=7682) Effective 08/02/2015: Units/Reference Range ChangeNew: 0.5-2.2 mmol/L Previous: 5 -20 mg/dLCBC W/PLT COUNT & AUTO [id number] 04:00:00 Test Item Value Reference Range Comments WHITE BLOOD CELL COUNT (BEAKER) (test jrpe=932) 12.0 K/ L 3.5-10.5 RED BLOOD CELL COUNT (BEAKER) (test wgmj=458) 3.32 M/ L 3.93-5.22 HEMOGLOBIN (BEAKER) (test bqca=576) 8.8 GM/DL 11.2-15.7 HEMATOCRIT (BEAKER) (test fyxr=714) 28.3 % 34.1-44.9 MEAN CORPUSCULAR VOLUME (BEAKER) (test gskv=391) 85.2 fL 79.4-94.8 MEAN CORPUSCULAR HEMOGLOBIN (BEAKER) (test 26.5 pg 25.6-32.2 trqe=415) MEAN CORPUSCULAR HEMOGLOBIN CONC (BEAKER) (test 31.1 GM/DL 32.2-35.5 uhba=456) RED CELL DISTRIBUTION WIDTH (BEAKER) (test 15.0 % 11.7-14.4 honr=464) PLATELET COUNT (BEAKER) (test qdeq=509) 157 K/CU MM 150-450 MEAN PLATELET VOLUME (BEAKER) (test zvmk=940) 10.7 fL 9.4-12.3 NUCLEATED RED BLOOD CELLS (BEAKER) (test 0 /100 WBC 0-0 mwqq=813) NEUTROPHILS RELATIVE PERCENT (BEAKER) (test 91 % luuw=359) LYMPHOCYTES RELATIVE PERCENT (BEAKER) (test 4 % lwyo=489) MONOCYTES RELATIVE PERCENT (BEAKER) (test 4 % xyhy=884) EOSINOPHILS RELATIVE PERCENT (BEAKER) (test 0 % aroi=255) BASOPHILS RELATIVE PERCENT (BEAKER) (test 0 % mcpf=293) NEUTROPHILS ABSOLUTE COUNT (BEAKER) (test 10.95 K/ L 1.56-6.13 wywj=374) LYMPHOCYTES ABSOLUTE COUNT (BEAKER) (test 0.52 K/ L 1.18-3.74 izeq=485) MONOCYTES ABSOLUTE COUNT (BEAKER) (test 0.42 K/ L 0.24-0.36 jacs=747) EOSINOPHILS ABSOLUTE COUNT (BEAKER) (test 0.01 K/ L 0.04-0.36 easl=047) BASOPHILS ABSOLUTE COUNT (BEAKER) (test 0.05 K/ L 0.01-0.08 dtbc=834) IMMATURE GRANULOCYTES-RELATIVE PERCENT (BEAKER) 0 % 0-1 (test cinh=3077) BLOOD GAS, [id number] 00:06:00 Test Item Value Reference Range Comments PH ARTERIAL (BEAKER) (test urxc=962) 7.26 7.35-7.45 PCO2 ARTERIAL (BEAKER) (test tzox=936) 52 mmHg 35-45 PO2 ARTERIAL (BEAKER) (test crmq=221) 88 mmHg 80-90 O2 SATURATION ARTERIAL (BEAKER) (test tjsx=089) 95.7 % 96.0-97.0 HCO3 ARTERIAL (BEAKER) (test iydc=903) 23 mmol/L 21-29 BASE EXCESS ARTERIAL (BEAKER) (test spqy=258) -4.0 mmol/L -2.0-3.0 PATIENT TEMPERATURE (BEAKER) (test pntx=2756) 36.4 C FIO2 (BEAKER) (test wxxf=0378) 40.0 % [id number] 18:55:00 Test Item Value Reference Range Comments PHOSPHORUS (BEAKER) (test gkjl=039) 4.8 mg/dL 2.3-4.7 [id number] 18:55:00 Test Item Value Reference Range Comments MAGNESIUM (BEAKER) (test qbht=103) 2.3 mg/dL 1.6-2.6 BASIC METABOLIC [id number] 18:55:00 Test Item Value Reference Range Comments SODIUM (BEAKER) (test 136 meq/L 136-145 ekzz=386) POTASSIUM (BEAKER) (test 4.5 meq/L 3.5-5.1 svfq=000) CHLORIDE (BEAKER) (test 108 meq/L 98-107 vyjf=855) CO2 (BEAKER) (test 21 meq/L 22-29 bqjy=383) BLOOD UREA NITROGEN 39 mg/dL 7-21 (BEAKER) (test jhal=036) CREATININE (BEAKER) (test 1.58 mg/dL 0.57-1.25 yruo=116) GLUCOSE RANDOM (BEAKER) 172 mg/dL 70-105 (test unpg=087) CALCIUM (BEAKER) (test 7.9 mg/dL 8.4-10.2 jyaq=250) EGFR (BEAKER) (test 33 mL/min/1.73 sq m ESTIMATED GFR IS NOT xeid=6862) ACCURATE CREATININE CLEARANCE IN PREDICTING GLOMERULAR FILTRATION RATE. ESTIMATED GFR IS NOT APPLICABLE FOR DIALYSIS PATIENTS. LACTIC ACID, ARTERIAL, WHOLE [id number] 18:53:00 Test Item Value Reference Range Comments LACTATE BLOOD ARTERIAL (2) 0.9 mmol/L 0.5-2.2 Specimen slightly hemolyzed (BEAKER) (test mwgs=1749) Effective 08/02/2015: Units/Reference Range ChangeNew: 0.5-2.2 mmol/L Previous: 5 -20 mg/dLRAD, CHEST, 1 VIEW, NON [id number] 18:44:00Reason for exam:-> postop cardiacShould this be [...] MDReport Verified Date/Time: 2017 18:44:30 Reading Location: [facility] [id number] Consult Reading Room Electronically signed by: LISA LI M.D. on05/20/2017 06:44 PMCBC W/PLT COUNT & AUTO [id number] 18:38:00 Test Item Value Reference Range Comments WHITE BLOOD CELL COUNT (BEAKER) (test dovl=552) 8.7 K/ L 3.5-10.5 RED BLOOD CELL COUNT (BEAKER) (test fwqm=579) 3.33 M/ L 3.93-5.22 HEMOGLOBIN (BEAKER) (test bpdw=211) 8.7 GM/DL 11.2-15.7 HEMATOCRIT (BEAKER) (test qmtv=855) 27.9 % 34.1-44.9 MEAN CORPUSCULAR VOLUME (BEAKER) (test zahz=526) 83.8 fL 79.4-94.8 MEAN CORPUSCULAR HEMOGLOBIN (BEAKER) (test 26.1 pg 25.6-32.2 qdkd=831) MEAN CORPUSCULAR HEMOGLOBIN CONC (BEAKER) (test 31.2 GM/DL 32.2-35.5 zucz=436) RED CELL DISTRIBUTION WIDTH (BEAKER) (test 14.9 % 11.7-14.4 leap=205) PLATELET COUNT (BEAKER) (test dqnn=597) 137 K/CU MM 150-450 MEAN PLATELET VOLUME (BEAKER) (test ajde=617) 10.2 fL 9.4-12.3 NUCLEATED RED BLOOD CELLS (BEAKER) (test 0 /100 WBC 0-0 zgqj=151) NEUTROPHILS RELATIVE PERCENT (BEAKER) (test 79 % sdoh=720) LYMPHOCYTES RELATIVE PERCENT (BEAKER) (test 12 % dpgd=139) MONOCYTES RELATIVE PERCENT (BEAKER) (test 7 % ospx=690) EOSINOPHILS RELATIVE PERCENT (BEAKER) (test 1 % xajw=068) BASOPHILS RELATIVE PERCENT (BEAKER) (test 1 % gstn=241) NEUTROPHILS ABSOLUTE COUNT (BEAKER) (test 6.83 K/ L 1.56-6.13 lffc=972) LYMPHOCYTES ABSOLUTE COUNT (BEAKER) (test 1.06 K/ L 1.18-3.74 nexd=845) MONOCYTES ABSOLUTE COUNT (BEAKER) (test 0.56 K/ L 0.24-0.36 udzr=015) EOSINOPHILS ABSOLUTE COUNT (BEAKER) (test 0.12 K/ L 0.04-0.36 jyew=481) BASOPHILS ABSOLUTE COUNT (BEAKER) (test 0.04 K/ L 0.01-0.08 ysbr=088) IMMATURE GRANULOCYTES-RELATIVE PERCENT (BEAKER) 1 % 0-1 (test cqvp=5679) OXYGEN SATURATION, [id number] 18:36:00 Test Item Value Reference Range Comments O2 SATURATION (MEASURED) (BEAKER) (test fmhc=3832) 72.5 % From distal port of IJ central venous catheterSODIUM NA-STAT [id number] 18:30 :00 Test Item Value Reference Range Comments SODIUM (BEAKER) (test eykj=953) 132 meq/L 135-148 HGB/HCT (H&H) - STAT [id number] 18:30:00 Test Item Value Reference Range Comments HEMOGLOBIN (BEAKER) (test vhln=966) 9.4 g/dL 12.0-15.0 HEMATOCRIT (BEAKER) (test vfvb=974) 28.0 % 36.0-45.0 GLUCOSE-STAT [id number] 18:30:00 Test Item Value Reference Range Comments GLUCOSE RANDOM (BEAKER) (test jvtb=728) 159 mg/dL 70-110 BLOOD GAS, [id number] 18:30:00 Test Item Value Reference Range Comments PH ARTERIAL (BEAKER) (test zyys=745) 7.34 7.35-7.45 PCO2 ARTERIAL (BEAKER) (test itzz=343) 43 mmHg 35-45 PO2 ARTERIAL (BEAKER) (test heph=033) 76 mmHg 80-90 O2 SATURATION ARTERIAL (BEAKER) (test tjfx=618) 94.9 % 96.0-97.0 HCO3 ARTERIAL (BEAKER) (test ppeb=500) 23 mmol/L 21-29 BASE EXCESS ARTERIAL (BEAKER) (test zonw=884) -2.6 mmol/L -2.0-3.0 PATIENT TEMPERATURE (BEAKER) (test zrwl=7995) 36.4 C FIO2 (BEAKER) (test liik=4113) 60.0 % CALCIUM, [id number] 18:30:00 Test Item Value Reference Range Comments CALCIUM IONIZED (BEAKER) (test nmyn=821) 0.94 mmol/L 1.12-1.27 PH, BLOOD (BEAKER) (test pgzn=2978) 7.34 POTASSIUM-STAT [id number] 18:28:00 Test Item Value Reference Range Comments POTASSIUM (BEAKER) (test zvkd=716) 4.4 meq/L 3.6-5.5 THROMBOELASTOGRAPH ([id number] 18:11:00 Test Item Value Reference Range Comments TEG ACTIVATED CLOTTING TIME (BEAKER) (test 6.7 minutes 4.0-7.0 tlcw=2230) TEG FIBRINOGEN ACTIVITY (BEAKER) (test 66.6 degrees 61.0-73.0 qinu=0833) TEG PLT. AGGREGATION (BEAKER) (test zzrw=4600) 62.4 MM 55.0-65.0 TEG FIBRINOLYSIS (BEAKER) (test zpzl=9205) 0.0 % 0.0-5.0 TGH ACTIVATED CLOTTING TIME (BEAKER) (test 6.7 minutes 4.0-7.0 twjw=4628) TGH FIBRINOGEN ACTIVITY ([facility]) (test 69.0 degrees 61.0-73.0 akob=1778) TGH PLT. AGGREGATION ([facility]) (test xrih=9642) 62.8 MM 55.0-65.0 TGH FIBRINOLYSIS ([facility]) (test yusv=8551) 0.0 % 0.0-5.0 [id number] 17:53:00 Test Item Value Reference Range Comments ACTIVATED CLOTTING TIME 103 sec TESTED AT [address] ([facility]) (test pqen=322) [place] [address] [id number] 17:53:00 Test Item Value Reference Range Comments ACTIVATED CLOTTING TIME 466 sec TESTED AT [address] ([facility]) (test izar=616) [place] [address] [id number] 17:53:00 Test Item Value Reference Range Comments ACTIVATED CLOTTING TIME 543 sec TESTED AT [address] ([facility]) (test eveo=951) [place] [address] [id number] 17:53:00 Test Item Value Reference Range Comments ACTIVATED CLOTTING TIME 549 sec TESTED AT [address] ([facility]) (test cgfc=791) [place] [address] [id number] 17:53:00 Test Item Value Reference Range Comments ACTIVATED CLOTTING TIME 632 sec TESTED AT [address] ([facility]) (test fbkj=436) [place] [address] [id number] 17:53:00 Test Item Value Reference Range Comments ACTIVATED CLOTTING TIME 494 sec TESTED AT [address] ([facility]) (test ejxk=649) [place] [address] [id number] 17:53:00 Test Item Value Reference Range Comments ACTIVATED CLOTTING TIME 587 sec TESTED AT [address] ([facility]) (test gcfa=141) [place] [address] [id number] 17:53:00 Test Item Value Reference Range Comments ACTIVATED CLOTTING TIME 626 sec TESTED AT [address] ([facility]) (test pjno=375) [place] [address] [id number] 17:52:00 Test Item Value Reference Range Comments ACTIVATED CLOTTING TIME 808 sec TESTED AT [facility] [address] (BEAKER) (test qeoe=450) [place] [address] [id number] 16:54:00 Test Item Value Reference Range Comments PARTIAL THROMBOPLASTIN TIME (BEAKER) (test 40.2 seconds 22.5-36.0 jcqr=243) [id number] 16:53:00 Test Item Value Reference Range Comments FIBRINOGEN LEVEL (BEAKER) (test txuk=605) 306 mg/dl 225-434 PROTHROMBIN [id number] 16:50:00 Test Item Value Reference Range Comments PROTIME (BEAKER) (test lzco=806) 19.6 seconds 11.7-14.7 INR (BEAKER) (test ynis=463) 1.7 <=5.9 RECOMMENDED COUMADIN/WARFARIN INR THERAPY RANGESSTANDARD DOSE: 2.0 - 3.0 Includes: PROPHYLAXIS forvenous thrombosis, systemic embolization; TREATMENT for venous thrombosis and/or pulmonary embolus.HIGH RISK: Target INR is 2.5-3.5 for patients with mechanical heart valves.PLATELET [id number] 16:45:00 Test Item Value Reference Range Comments PLATELET COUNT (BEAKER) (test dqyb=185) 136 K/CU MM 150-450 POTASSIUM-STAT [id number] 16:15:00 Test Item Value Reference Range Comments POTASSIUM (BEAKER) (test voki=411) 4.9 meq/L 3.6-5.5 BLOOD GAS, [id number] 16:15:00 Test Item Value Reference Range Comments PH ARTERIAL (BEAKER) (test xbbf=504) 7.39 7.35-7.45 PCO2 ARTERIAL (BEAKER) (test uepm=664) 42 mmHg 35-45 PO2 ARTERIAL (BEAKER) (test denr=414) 201 mmHg 80-90 O2 SATURATION ARTERIAL (BEAKER) (test sdmk=533) 99.4 % 96.0-97.0 HCO3 ARTERIAL (BEAKER) (test bbvt=494) 25 mmol/L 21-29 BASE EXCESS ARTERIAL (BEAKER) (test jswm=666) -0.3 mmol/L -2.0-3.0 PATIENT TEMPERATURE (BEAKER) (test sgjz=4832) 36.3 C FIO2 (BEAKER) (test afui=3357) 100.0 % SODIUM NA-STAT [id number] 16:15:00 Test Item Value Reference Range Comments SODIUM (BEAKER) (test pbpd=009) 131 meq/L 135-148 GLUCOSE-STAT [id number] 16:15:00 Test Item Value Reference Range Comments GLUCOSE RANDOM (BEAKER) (test flip=844) 198 mg/dL 70-110 HGB/HCT (H&H) - STAT [id number] 16:15:00 Test Item Value Reference Range Comments HEMOGLOBIN (BEAKER) (test iagr=500) 7.5 g/dL 12.0-15.0 HEMATOCRIT (BEAKER) (test mhsy=953) 22.0 % 36.0-45.0 CALCIUM, [id number] 16:14:00 Test Item Value Reference Range Comments CALCIUM IONIZED (BEAKER) (test crdh=380) 0.91 mmol/L 1.12-1.27 PH, BLOOD (BEAKER) (test eaye=7180) 7.39 BLOOD GAS, [id number] 15:39:00 Test Item Value Reference Range Comments PH ARTERIAL (BEAKER) (test vcet=482) 7.44 7.35-7.45 PCO2 ARTERIAL (BEAKER) (test zbxg=697) 38 mmHg 35-45 PO2 ARTERIAL (BEAKER) (test lekp=039) 298 mmHg 80-90 O2 SATURATION ARTERIAL (BEAKER) (test rcub=740) 99.7 % 96.0-97.0 HCO3 ARTERIAL (BEAKER) (test ufcn=897) 25 mmol/L 21-29 BASE EXCESS ARTERIAL (BEAKER) (test angt=742) 0.7 mmol/L -2.0-3.0 PATIENT TEMPERATURE (BEAKER) (test pjdd=7738) 36.2 C FIO2 (BEAKER) (test lkbf=8310) 70.0 % SODIUM NA-STAT [id number] 15:39:00 Test Item Value Reference Range Comments SODIUM (BEAKER) (test sfwk=216) 131 meq/L 135-148 GLUCOSE-STAT [id number] 15:39:00 Test Item Value Reference Range Comments GLUCOSE RANDOM (BEAKER) (test bgiy=669) 186 mg/dL 70-110 HGB/HCT (H&H) - STAT [id number] 15:39:00 Test Item Value Reference Range Comments HEMOGLOBIN (BEAKER) (test niet=620) 7.5 g/dL 12.0-15.0 HEMATOCRIT (BEAKER) (test xzxm=041) 22.0 % 36.0-45.0 POTASSIUM-STAT [id number] 15:38:00 Test Item Value Reference Range Comments POTASSIUM (BEAKER) (test csgi=688) 5.3 meq/L 3.6-5.5 BLOOD GAS, [id number] 15:24:00 Test Item Value Reference Range Comments PH ARTERIAL (BEAKER) (test kkvg=754) 7.47 7.35-7.45 PCO2 ARTERIAL (BEAKER) (test xzkq=416) 37 mmHg 35-45 PO2 ARTERIAL (BEAKER) (test azqh=613) 334 mmHg 80-90 O2 SATURATION ARTERIAL (BEAKER) (test iuvj=611) 99.8 % 96.0-97.0 HCO3 ARTERIAL (BEAKER) (test khss=323) 26 mmol/L 21-29 BASE EXCESS ARTERIAL (BEAKER) (test xcei=971) 2.2 mmol/L -2.0-3.0 PATIENT TEMPERATURE (BEAKER) (test ivsx=5834) 36.2 C FIO2 (BEAKER) (test hqgt=6693) 70.0 % SODIUM NA-STAT [id number] 15:24:00 Test Item Value Reference Range Comments SODIUM (BEAKER) (test iurb=894) 130 meq/L 135-148 GLUCOSE-STAT [id number] 15:24:00 Test Item Value Reference Range Comments GLUCOSE RANDOM (BEAKER) (test rmya=729) 189 mg/dL 70-110 HGB/HCT (H&H) - STAT [id number] 15:24:00 Test Item Value Reference Range Comments HEMOGLOBIN (BEAKER) (test scej=984) 6.7 g/dL 12.0-15.0 HEMATOCRIT (BEAKER) (test yrnq=286) 20.0 % 36.0-45.0 POTASSIUM-STAT [id number] 15:23:00 Test Item Value Reference Range Comments POTASSIUM (BEAKER) (test avky=220) 5.4 meq/L 3.6-5.5 BLOOD GAS, [id number] 15:07:00 Test Item Value Reference Range Comments PH ARTERIAL (BEAKER) (test qimq=128) 7.43 7.35-7.45 PCO2 ARTERIAL (BEAKER) (test vcvf=364) 41 mmHg 35-45 PO2 ARTERIAL (BEAKER) (test lbrp=324) 365 mmHg 80-90 O2 SATURATION ARTERIAL (BEAKER) (test gjkm=121) 99.8 % 96.0-97.0 HCO3 ARTERIAL (BEAKER) (test laxe=201) 27 mmol/L 21-29 BASE EXCESS ARTERIAL (BEAKER) (test uxnt=480) 1.9 mmol/L -2.0-3.0 PATIENT TEMPERATURE (BEAKER) (test idfs=8176) 35.8 C FIO2 (BEAKER) (test nrwb=5780) 70.0 % SODIUM NA-STAT [id number] 15:07:00 Test Item Value Reference Range Comments SODIUM (BEAKER) (test doiw=046) 129 meq/L 135-148 GLUCOSE-STAT [id number] 15:07:00 Test Item Value Reference Range Comments GLUCOSE RANDOM (BEAKER) (test xzpx=423) 172 mg/dL 70-110 HGB/HCT (H&H) - STAT [id number] 15:07:00 Test Item Value Reference Range Comments HEMOGLOBIN (BEAKER) (test bzqi=715) 7.1 g/dL 12.0-15.0 HEMATOCRIT (BEAKER) (test fqrn=663) 21.0 % 36.0-45.0 POTASSIUM-STAT [id number] 15:04:00 Test Item Value Reference Range Comments POTASSIUM (BEAKER) (test inlr=176) 5.0 meq/L 3.6-5.5 BLOOD GAS, [id number] 14:21:00 Test Item Value Reference Range Comments PH ARTERIAL (BEAKER) (test tjuw=223) 7.43 7.35-7.45 PCO2 ARTERIAL (BEAKER) (test msek=460) 38 mmHg 35-45 PO2 ARTERIAL (BEAKER) (test bedc=482) 360 mmHg 80-90 O2 SATURATION ARTERIAL (BEAKER) (test mieb=235) 99.8 % 96.0-97.0 HCO3 ARTERIAL (BEAKER) (test buxx=951) 27 mmol/L 21-29 BASE EXCESS ARTERIAL (BEAKER) (test gduy=645) 0.3 mmol/L -2.0-3.0 PATIENT TEMPERATURE (BEAKER) (test iwqu=0040) 28.9 C FIO2 (BEAKER) (test kunz=7498) 70.0 % SODIUM NA-STAT [id number] 14:21:00 Test Item Value Reference Range Comments SODIUM (BEAKER) (test lowb=177) 133 meq/L 135-148 GLUCOSE-STAT [id number] 14:21:00 Test Item Value Reference Range Comments GLUCOSE RANDOM (BEAKER) (test onqp=843) 160 mg/dL 70-110 HGB/HCT (H&H) - STAT [id number] 14:21:00 Test Item Value Reference Range Comments HEMOGLOBIN (BEAKER) (test byum=950) 7.5 g/dL 12.0-15.0 HEMATOCRIT (BEAKER) (test ddmh=325) 22.0 % 36.0-45.0 POTASSIUM-STAT [id number] 14:20:00 Test Item Value Reference Range Comments POTASSIUM (BEAKER) (test gayu=889) 4.7 meq/L 3.6-5.5 BLOOD GAS, [id number] 13:58:00 Test Item Value Reference Range Comments PH ARTERIAL (BEAKER) (test glrk=193) 7.43 7.35-7.45 PCO2 ARTERIAL (BEAKER) (test wolo=538) 37 mmHg 35-45 PO2 ARTERIAL (BEAKER) (test cesc=913) 448 mmHg 80-90 O2 SATURATION ARTERIAL (BEAKER) (test vlss=734) 99.9 % 96.0-97.0 HCO3 ARTERIAL (BEAKER) (test cdht=693) 26 mmol/L 21-29 BASE EXCESS ARTERIAL (BEAKER) (test xjlz=631) -0.1 mmol/L -2.0-3.0 PATIENT TEMPERATURE (BEAKER) (test ikny=4919) 29.2 C FIO2 (BEAKER) (test ntgd=9209) 80.0 % SODIUM NA-STAT [id number] 13:58:00 Test Item Value Reference Range Comments SODIUM (BEAKER) (test onvo=804) 132 meq/L 135-148 GLUCOSE-STAT [id number] 13:58:00 Test Item Value Reference Range Comments GLUCOSE RANDOM (BEAKER) (test vria=659) 166 mg/dL 70-110 HGB/HCT (H&H) - STAT [id number] 13:58:00 Test Item Value Reference Range Comments HEMOGLOBIN (BEAKER) (test gqjf=905) 7.5 g/dL 12.0-15.0 HEMATOCRIT (BEAKER) (test ncca=041) 22.0 % 36.0-45.0 POTASSIUM-STAT [id number] 13:57:00 Test Item Value Reference Range Comments POTASSIUM (BEAKER) (test iayf=382) 4.7 meq/L 3.6-5.5 BLOOD GAS, [id number] 13:35:00 Test Item Value Reference Range Comments PH ARTERIAL (BEAKER) (test hjxo=203) 7.51 7.35-7.45 PCO2 ARTERIAL (BEAKER) (test wedk=395) 33 mmHg 35-45 PO2 ARTERIAL (BEAKER) (test wpul=680) 453 mmHg 80-90 O2 SATURATION ARTERIAL (BEAKER) (test sefr=664) 99.9 % 96.0-97.0 HCO3 ARTERIAL (BEAKER) (test rvlr=049) 28 mmol/L 21-29 BASE EXCESS ARTERIAL (BEAKER) (test hhpv=693) 2.7 mmol/L -2.0-3.0 PATIENT TEMPERATURE (BEAKER) (test uizu=6047) 29.2 C FIO2 (BEAKER) (test tvet=7020) 80.0 % GLUCOSE-STAT [id number] 13:35:00 Test Item Value Reference Range Comments GLUCOSE RANDOM (BEAKER) (test fekn=453) 130 mg/dL 70-110 HGB/HCT (H&H) - STAT [id number] 13:35:00 Test Item Value Reference Range Comments HEMOGLOBIN (BEAKER) (test ricn=938) 6.7 g/dL 12.0-15.0 HEMATOCRIT (BEAKER) (test tucu=703) 20.0 % 36.0-45.0 SODIUM NA-STAT [id number] 13:35:00 Test Item Value Reference Range Comments SODIUM (BEAKER) (test eggf=649) 133 meq/L 135-148 POTASSIUM-STAT [id number] 13:34:00 Test Item Value Reference Range Comments POTASSIUM (BEAKER) (test vocx=553) 4.2 meq/L 3.6-5.5 BLOOD GAS, [id number] 13:16:00 Test Item Value Reference Range Comments PH ARTERIAL (BEAKER) (test fcpo=786) 7.42 7.35-7.45 PCO2 ARTERIAL (BEAKER) (test mpcv=932) 34 mmHg 35-45 PO2 ARTERIAL (BEAKER) (test ojzy=065) 375 mmHg 80-90 O2 SATURATION ARTERIAL (BEAKER) (test akjv=321) 99.8 % 96.0-97.0 HCO3 ARTERIAL (BEAKER) (test rzxw=124) 23 mmol/L 21-29 BASE EXCESS ARTERIAL (BEAKER) (test smjf=447) -2.5 mmol/L -2.0-3.0 PATIENT TEMPERATURE (BEAKER) (test gwsf=0225) 31.5 C FIO2 (BEAKER) (test ekfi=6609) 80.0 % SODIUM NA-STAT [id number] 13:16:00 Test Item Value Reference Range Comments SODIUM (BEAKER) (test hahq=907) 133 meq/L 135-148 HGB/HCT (H&H) - STAT [id number] 13:16:00 Test Item Value Reference Range Comments HEMOGLOBIN (BEAKER) (test miiw=006) 6.3 g/dL 12.0-15.0 HEMATOCRIT (BEAKER) (test vgzj=934) 19.0 % 36.0-45.0 CALCIUM, [id number] 13:15:00 Test Item Value Reference Range Comments CALCIUM IONIZED (BEAKER) (test biva=870) 0.98 mmol/L 1.12-1.27 PH, BLOOD (BEAKER) (test nqwe=2752) 7.34 BLOOD GAS, [id number] 13:15:00 Test Item Value Reference Range Comments PH VENOUS (BEAKER) (test yrui=773) 7.39 7.32-7.42 PCO2 VENOUS (BEAKER) (test xgzz=214) 38 mmHg 41-51 PO2 VENOUS (BEAKER) (test gmmr=537) 43 mmHg 25-40 O2 SATURATION VENOUS (BEAKER) (test ikur=391) 90.0 % 40.0-70.0 HCO3 VENOUS (BEAKER) (test luld=557) 24 mmol/L 21-29 BASE EXCESS VENOUS (BEAKER) (test tfyw=183) -2.1 mmol/L -2.0-3.0 PATIENT TEMPERATURE (BEAKER) (test aysj=7070) 31.5 C FIO2 (BEAKER) (test gxnq=5451) 80.0 % GLUCOSE-STAT [id number] 13:14:00 Test Item Value Reference Range Comments GLUCOSE RANDOM (BEAKER) (test madw=017) 92 mg/dL 70-110 POTASSIUM-STAT [id number] 13:14:00 Test Item Value Reference Range Comments POTASSIUM (BEAKER) (test nwno=853) 3.9 meq/L 3.6-5.5 BLOOD GAS, [id number] 10:54:00 Test Item Value Reference Range Comments PH ARTERIAL (BEAKER) (test mifg=155) 7.41 7.35-7.45 PCO2 ARTERIAL (BEAKER) (test qqnd=037) 39 mmHg 35-45 PO2 ARTERIAL (BEAKER) (test jkrz=514) 254 mmHg 80-90 O2 SATURATION ARTERIAL (BEAKER) (test ruzc=995) 99.6 % 96.0-97.0 HCO3 ARTERIAL (BEAKER) (test paxb=423) 25 mmol/L 21-29 BASE EXCESS ARTERIAL (BEAKER) (test rnoe=834) -0.3 mmol/L -2.0-3.0 PATIENT TEMPERATURE (BEAKER) (test olte=4474) 35.4 C FIO2 (BEAKER) (test keeh=1526) 100.0 % HGB/HCT (H&H) - STAT [id number] 10:54:00 Test Item Value Reference Range Comments HEMOGLOBIN (BEAKER) (test lafe=916) 9.3 g/dL 12.0-15.0 HEMATOCRIT (BEAKER) (test fpxg=394) 27.0 % 36.0-45.0 SODIUM NA-STAT [id number] 10:54:00 Test Item Value Reference Range Comments SODIUM (BEAKER) (test eynk=575) 132 meq/L 135-148 GLUCOSE-STAT [id number] 10:52:00 Test Item Value Reference Range Comments GLUCOSE RANDOM (BEAKER) (test cctr=793) 94 mg/dL 70-110 POTASSIUM-STAT [id number] 10:52:00 Test Item Value Reference Range Comments POTASSIUM (BEAKER) (test iach=786) 4.0 meq/L 3.6-5.5 HEMOGLOBIN [id number] 09:50:00 Test Item Value Reference Range Comments HEMOGLOBIN A1C (BEAKER) (test iabg=625) 10.6 % 4.3-6.1 PLATELET AGGREGATION: FUNCTION [id number] 08:27:00 Test Item Value Reference Range Comments WEAK ADP RESULT(BEAKER) (test 63 % 60-91 bcuz=2087) PLATELET FUNCTION SCREEN 60-100% indicates normal INTERP (BEAKER) (test platelet function ofmk=8876) PCAD-[id number]-[id number] (BEAKER) Toshia Post MD (electronic (test kyji=9304) signature) PLATELET COUNT AGG (BEAKER) 198 K/CU MM 150-450 (test mhgk=9036) for patients on clopidogrel in past two weeksPOCT-GLUCOSE [id number] 08:11: 00 Test Item Value Reference Range Comments POC-GLUCOSE METER (BEAKER) 116 mg/dL 70-110 TESTED AT [facility] [address] [facility] (test jtxq=1240) [facility] [address] [id number] 07:10:00 Test Item Value Reference Range Comments PHOSPHORUS (BEAKER) (test fhho=734) 4.5 mg/dL 2.3-4.7 [id number] 07:10:00 Test Item Value Reference Range Comments MAGNESIUM (BEAKER) (test ejrp=143) 2.1 mg/dL 1.6-2.6 BASIC METABOLIC [id number] 07:10:00 Test Item Value Reference Range Comments SODIUM (BEAKER) (test 135 meq/L 136-145 xdmw=627) POTASSIUM (BEAKER) (test 4.4 meq/L 3.5-5.1 thce=653) CHLORIDE (BEAKER) (test 106 meq/L 98-107 pacd=319) CO2 (BEAKER) (test 23 meq/L 22-29 odgi=318) BLOOD UREA NITROGEN 40 mg/dL 7-21 (BEAKER) (test dtig=243) CREATININE (BEAKER) (test 1.67 mg/dL 0.57-1.25 rvuh=694) GLUCOSE RANDOM (BEAKER) 107 mg/dL 70-105 (test wphx=094) CALCIUM (BEAKER) (test 8.3 mg/dL 8.4-10.2 bfzu=055) EGFR (BEAKER) (test 31 mL/min/1.73 sq m ESTIMATED GFR IS NOT tdwz=7611) ACCURATE CREATININE CLEARANCE IN PREDICTING GLOMERULAR FILTRATION RATE. ESTIMATED GFR IS NOT APPLICABLE FOR DIALYSIS PATIENTS. B-TYPE NATRIURETIC FACTOR (BNP)2017-05-20 06:56:00 Test Item Value Reference Range Comments B-TYPE NATRIURETIC PEPTIDE (BEAKER) (test 552 pg/mL 0-100 uypi=969) CBC W/PLT COUNT & AUTO [id number] 06:46:00 Test Item Value Reference Range Comments WHITE BLOOD CELL COUNT (BEAKER) (test efdc=870) 6.2 K/ L 3.5-10.5 RED BLOOD CELL COUNT (BEAKER) (test kylm=385) 3.56 M/ L 3.93-5.22 HEMOGLOBIN (BEAKER) (test vpsm=986) 9.1 GM/DL 11.2-15.7 HEMATOCRIT (BEAKER) (test amry=093) 29.5 % 34.1-44.9 MEAN CORPUSCULAR VOLUME (BEAKER) (test chvv=846) 82.9 fL 79.4-94.8 MEAN CORPUSCULAR HEMOGLOBIN (BEAKER) (test 25.6 pg 25.6-32.2 laoz=997) MEAN CORPUSCULAR HEMOGLOBIN CONC (BEAKER) (test 30.8 GM/DL 32.2-35.5 vxkh=765) RED CELL DISTRIBUTION WIDTH (BEAKER) (test 14.4 % 11.7-14.4 njus=672) PLATELET COUNT (BEAKER) (test ohtk=099) 222 K/CU MM 150-450 MEAN PLATELET VOLUME (BEAKER) (test ipzz=145) 10.5 fL 9.4-12.3 NUCLEATED RED BLOOD CELLS (BEAKER) (test 0 /100 WBC 0-0 dbug=088) NEUTROPHILS RELATIVE PERCENT (BEAKER) (test 47 % txah=598) LYMPHOCYTES RELATIVE PERCENT (BEAKER) (test 39 % igeg=880) MONOCYTES RELATIVE PERCENT (BEAKER) (test 8 % ycvb=776) EOSINOPHILS RELATIVE PERCENT (BEAKER) (test 5 % hbts=503) BASOPHILS RELATIVE PERCENT (BEAKER) (test 1 % ttqc=727) NEUTROPHILS ABSOLUTE COUNT (BEAKER) (test 2.90 K/ L 1.56-6.13 sopk=347) LYMPHOCYTES ABSOLUTE COUNT (BEAKER) (test 2.37 K/ L 1.18-3.74 nbhh=006) MONOCYTES ABSOLUTE COUNT (BEAKER) (test 0.49 K/ L 0.24-0.36 zgnh=820) EOSINOPHILS ABSOLUTE COUNT (BEAKER) (test 0.30 K/ L 0.04-0.36 fhgd=995) BASOPHILS ABSOLUTE COUNT (BEAKER) (test 0.08 K/ L 0.01-0.08 ytbh=448) IMMATURE GRANULOCYTES-RELATIVE PERCENT (BEAKER) 0 % 0-1 (test janw=8764) CALCIUM, [id number] 06:40:00 Test Item Value Reference Range Comments CALCIUM IONIZED (BEAKER) (test iqvr=347) 1.06 mmol/L 1.12-1.27 PH, BLOOD (BEAKER) (test skyk=9553) 7.39 POCT-GLUCOSE [id number] 23:22:00 Test Item Value Reference Range Comments POC-GLUCOSE METER (BEAKER) 165 mg/dL 70-110 TESTED AT [facility] [address] [facility] (test fthx=8202) [facility] [address] URINE PROTEIN ELECTROPHORESIS, [id number] 18:02:00 Test Item Value Reference Range Comments PROTEIN, URINE (BEAKER) (test 305 mg/dL 0-14 cswm=4966) ALBUMIN URINE ELP (BEAKER) 70.9 % (test jmwv=9837) GAMMA GLOBULIN URINE (BEAKER) 29.1 % (test uazy=0466) UPEP, ID-438 (BEAKER) (test No monoclonal bands detected. wvyf=3395) [id number] (BEAKER) Rocio Galindo MD (test wvpj=4246) (electronic signature) PROTEIN ELECTROPHORESIS, [id number] 17:57:00 Test Item Value Reference Range Comments ALBUMIN FRACTION (BEAKER) 2.5 g/dL 3.5-5.5 (test xgos=789) ALPHA 1 FRACTION (BEAKER) 0.3 g/dL 0.2-0.4 (test adfy=699) ALPHA 2 FRACTION (BEAKER) 0.9 g/dL 0.5-0.9 (test yxtr=087) BETA FRACTION (BEAKER) (test 0.8 g/dL 0.6-1.1 tccv=599) GAMMA GLOBULIN FRACTION 1.0 g/dL 0.7-1.7 (BEAKER) (test tffn=298) INTERPRETATION-119 (BEAKER) Decreased albumin with (test kpne=7586) concurrent relative increases in all globulin fractions. No monoclonal bands detected. [id number] (BEAKER) Rocio Galindo MD (test rxkg=6238) (electronic signature) PROTEIN TOTAL SERUM, SPEP 5.5 gm/dL 6.0-8.3 (BEAKER) (test nshj=6952) POCT-GLUCOSE [id number] 17:15:00 Test Item Value Reference Range Comments POC-GLUCOSE METER (BEAKER) 209 mg/dL 70-110 TESTED AT [facility] [address] [facility] (test fymw=6957) [facility] [address] BLOOD GAS, [id number] 15:54:00 Test Item Value Reference Range Comments PH ARTERIAL (BEAKER) (test dyvt=908) 7.45 7.35-7.45 PCO2 ARTERIAL (BEAKER) (test butg=517) 38 mmHg 35-45 PO2 ARTERIAL (BEAKER) (test bevp=413) 69 mmHg 80-90 O2 SATURATION ARTERIAL (BEAKER) (test grub=756) 94.5 % 96.0-97.0 HCO3 ARTERIAL (BEAKER) (test faak=596) 25 mmol/L 21-29 BASE EXCESS ARTERIAL (BEAKER) (test hbrq=763) 1.3 mmol/L -2.0-3.0 PATIENT TEMPERATURE (BEAKER) (test ejxc=8241) 37.0 C FIO2 (BEAKER) (test nwlp=0737) 36.0 % RAD, CHEST, 1 VIEW, NON [id number] 14:07:00Reason for exam:->SOB, hypoxemiaShould this be performed [...] Eder Cespedes Verified Date/Time: 2017 14:07:07 Reading Location:[facility] B1 [id number] Consult Reading Room POCT- GLUCOSE [id number] 11:26:00 Test Item Value Reference Range Comments POC-GLUCOSE METER (BEAKER) 262 mg/dL 70-110 TESTED AT [place] [id number] [facility] (test lksg=8982) [facility] [address] POCT-GLUCOSE [id number] 07:37:00 Test Item Value Reference Range Comments POC-GLUCOSE METER (BEAKER) 170 mg/dL 70-110 TESTED AT [address] (test mgli=5355) [facility] [address] CALCIUM, [id number] 06:06:00 Test Item Value Reference Range Comments CALCIUM IONIZED (BEAKER) (test aflx=375) 1.05 mmol/L 1.12-1.27 PH, BLOOD (BEAKER) (test opix=1991) 7.41 [id number] 05:38:00 Test Item Value Reference Range Comments PHOSPHORUS (BEAKER) (test ighh=000) 3.9 mg/dL 2.3-4.7 [id number] 05:38:00 Test Item Value Reference Range Comments MAGNESIUM (BEAKER) (test kwam=517) 2.2 mg/dL 1.6-2.6 BASIC METABOLIC [id number] 05:38:00 Test Item Value Reference Range Comments SODIUM (BEAKER) (test 135 meq/L 136-145 yrah=915) POTASSIUM (BEAKER) (test 4.5 meq/L 3.5-5.1 uiuz=297) CHLORIDE (BEAKER) (test 105 meq/L 98-107 jopi=849) CO2 (BEAKER) (test 24 meq/L 22-29 frog=763) BLOOD UREA NITROGEN 41 mg/dL 7-21 (BEAKER) (test uips=363) CREATININE (BEAKER) (test 1.74 mg/dL 0.57-1.25 qksp=038) GLUCOSE RANDOM (BEAKER) 174 mg/dL 70-105 (test ngmo=883) CALCIUM (BEAKER) (test 8.4 mg/dL 8.4-10.2 smnt=305) EGFR (BEAKER) (test 30 mL/min/1.73 sq m ESTIMATED GFR IS NOT ojod=8905) ACCURATE CREATININE CLEARANCE IN PREDICTING GLOMERULAR FILTRATION RATE. ESTIMATED GFR IS NOT APPLICABLE FOR DIALYSIS PATIENTS. CBC W/PLT COUNT & AUTO [id number] 05:09:00 Test Item Value Reference Range Comments WHITE BLOOD CELL COUNT (BEAKER) (test gsui=697) 8.5 K/ L 3.5-10.5 RED BLOOD CELL COUNT (BEAKER) (test llvm=280) 3.54 M/ L 3.93-5.22 HEMOGLOBIN (BEAKER) (test pmim=463) 9.1 GM/DL 11.2-15.7 HEMATOCRIT (BEAKER) (test rena=083) 29.1 % 34.1-44.9 MEAN CORPUSCULAR VOLUME (BEAKER) (test nvnp=804) 82.2 fL 79.4-94.8 MEAN CORPUSCULAR HEMOGLOBIN (BEAKER) (test 25.7 pg 25.6-32.2 iuxn=116) MEAN CORPUSCULAR HEMOGLOBIN CONC (BEAKER) (test 31.3 GM/DL 32.2-35.5 sbrr=607) RED CELL DISTRIBUTION WIDTH (BEAKER) (test 14.5 % 11.7-14.4 onsq=451) PLATELET COUNT (BEAKER) (test abry=205) 201 K/CU MM 150-450 MEAN PLATELET VOLUME (BEAKER) (test bfwy=737) 10.7 fL 9.4-12.3 NUCLEATED RED BLOOD CELLS (BEAKER) (test 0 /100 WBC 0-0 eivb=111) NEUTROPHILS RELATIVE PERCENT (BEAKER) (test 56 % lymx=478) LYMPHOCYTES RELATIVE PERCENT (BEAKER) (test 32 % xcvf=553) MONOCYTES RELATIVE PERCENT (BEAKER) (test 7 % dwgy=756) EOSINOPHILS RELATIVE PERCENT (BEAKER) (test 4 % ukok=399) BASOPHILS RELATIVE PERCENT (BEAKER) (test 1 % uplg=659) NEUTROPHILS ABSOLUTE COUNT (BEAKER) (test 4.80 K/ L 1.56-6.13 zdph=458) LYMPHOCYTES ABSOLUTE COUNT (BEAKER) (test 2.73 K/ L 1.18-3.74 goky=123) MONOCYTES ABSOLUTE COUNT (BEAKER) (test 0.62 K/ L 0.24-0.36 svpx=682) EOSINOPHILS ABSOLUTE COUNT (BEAKER) (test 0.30 K/ L 0.04-0.36 jwky=235) BASOPHILS ABSOLUTE COUNT (BEAKER) (test 0.06 K/ L 0.01-0.08 tcra=083) IMMATURE GRANULOCYTES-RELATIVE PERCENT (BEAKER) 0 % 0-1 (test akij=9003) POCT-GLUCOSE [id number] 22:08:00 Test Item Value Reference Range Comments POC-GLUCOSE METER (BEAKER) 263 mg/dL 70-110 TESTED AT [address] (test vqkb=6122) [place] [id number] POCT-GLUCOSE [id number] 17:20:00 Test Item Value Reference Range Comments POC-GLUCOSE METER (BEAKER) 233 mg/dL 70-110 TESTED AT [address] (test cpet=9675) [place] [id number] POCT-GLUCOSE [id number] 08:28:00 Test Item Value Reference Range Comments POC-GLUCOSE METER (BEAKER) 154 mg/dL 70-110 TESTED AT [address] (test qabx=2868) [place] [id number] BASIC METABOLIC [id number] 06:41:00 Test Item Value Reference Range Comments SODIUM (BEAKER) (test 135 meq/L 136-145 jvgt=516) POTASSIUM (BEAKER) (test 4.6 meq/L 3.5-5.1 bkib=173) CHLORIDE (BEAKER) (test 104 meq/L 98-107 cscz=088) CO2 (BEAKER) (test 23 meq/L 22-29 jyyd=801) BLOOD UREA NITROGEN 39 mg/dL 7-21 (BEAKER) (test mnwm=478) CREATININE (BEAKER) (test 1.77 mg/dL 0.57-1.25 kdnr=828) GLUCOSE RANDOM (BEAKER) 173 mg/dL 70-105 (test msqf=741) CALCIUM (BEAKER) (test 8.6 mg/dL 8.4-10.2 vkqy=066) EGFR (BEAKER) (test 29 mL/min/1.73 sq m ESTIMATED GFR IS NOT ydnr=8291) ACCURATE CREATININE CLEARANCE IN PREDICTING GLOMERULAR FILTRATION RATE. ESTIMATED GFR IS NOT APPLICABLE FOR DIALYSIS PATIENTS. [id number] 06:35:00 Test Item Value Reference Range Comments PHOSPHORUS (BEAKER) (test tmiv=319) 4.1 mg/dL 2.3-4.7 [id number] 06:35:00 Test Item Value Reference Range Comments MAGNESIUM (BEAKER) (test xhvf=150) 2.1 mg/dL 1.6-2.6 CALCIUM, [id number] 06:22:00 Test Item Value Reference Range Comments CALCIUM IONIZED (BEAKER) (test radl=121) 1.10 mmol/L 1.12-1.27 PH, BLOOD (BEAKER) (test elnl=9209) 7.38 CBC W/PLT COUNT & AUTO [id number] 06:04:00 Test Item Value Reference Range Comments WHITE BLOOD CELL COUNT (BEAKER) (test qqvx=137) 9.3 K/ L 3.5-10.5 RED BLOOD CELL COUNT (BEAKER) (test cyju=587) 4.15 M/ L 3.93-5.22 HEMOGLOBIN (BEAKER) (test gfnk=295) 10.6 GM/DL 11.2-15.7 HEMATOCRIT (BEAKER) (test dkgs=885) 34.2 % 34.1-44.9 MEAN CORPUSCULAR VOLUME (BEAKER) (test nntf=481) 82.4 fL 79.4-94.8 MEAN CORPUSCULAR HEMOGLOBIN (BEAKER) (test 25.5 pg 25.6-32.2 pkgu=883) MEAN CORPUSCULAR HEMOGLOBIN CONC (BEAKER) (test 31.0 GM/DL 32.2-35.5 kkax=132) RED CELL DISTRIBUTION WIDTH (BEAKER) (test 14.6 % 11.7-14.4 ovpw=182) PLATELET COUNT (BEAKER) (test hclh=071) 183 K/CU MM 150-450 MEAN PLATELET VOLUME (BEAKER) (test qhvf=767) 11.0 fL 9.4-12.3 NUCLEATED RED BLOOD CELLS (BEAKER) (test 0 /100 WBC 0-0 eocu=937) NEUTROPHILS RELATIVE PERCENT (BEAKER) (test 66 % zvbn=908) LYMPHOCYTES RELATIVE PERCENT (BEAKER) (test 24 % hzph=200) MONOCYTES RELATIVE PERCENT (BEAKER) (test 7 % oiwe=926) EOSINOPHILS RELATIVE PERCENT (BEAKER) (test 3 % vscd=743) BASOPHILS RELATIVE PERCENT (BEAKER) (test 1 % kyai=794) NEUTROPHILS ABSOLUTE COUNT (BEAKER) (test 6.15 K/ L 1.56-6.13 eval=749) LYMPHOCYTES ABSOLUTE COUNT (BEAKER) (test 2.20 K/ L 1.18-3.74 mwln=888) MONOCYTES ABSOLUTE COUNT (BEAKER) (test 0.62 K/ L 0.24-0.36 sosj=707) EOSINOPHILS ABSOLUTE COUNT (BEAKER) (test 0.24 K/ L 0.04-0.36 stqz=481) BASOPHILS ABSOLUTE COUNT (BEAKER) (test 0.06 K/ L 0.01-0.08 uvuh=803) IMMATURE GRANULOCYTES-RELATIVE PERCENT (BEAKER) 0 % 0-1 (test ecdv=2805) POCT-GLUCOSE [id number] 03:44:00 Test Item Value Reference Range Comments POC-GLUCOSE METER (BEAKER) 220 mg/dL 70-110 TESTED AT [address] (test xhxi=8515) [place] [address] POCT-GLUCOSE [id number] 18:27:00 Test Item Value Reference Range Comments POC-GLUCOSE METER (BEAKER) 256 mg/dL 70-110 TESTED AT [address] (test nikx=9978) [place] [address] POCT-GLUCOSE [id number] 15:45:00 Test Item Value Reference Range Comments POC-GLUCOSE METER (BEAKER) 278 mg/dL 70-110 TESTED AT [address] (test rcpx=1755) [place] [address] POCT-GLUCOSE [id number] 13:22:00 Test Item Value Reference Range Comments POC-GLUCOSE METER (BEAKER) 278 mg/dL 70-110 TESTED AT [address] (test uigl=0216) [place] [address] PLATELET AGGREGATION: FUNCTION [id number] 13:18:00 Test Item Value Reference Range Comments WEAK ADP RESULT(BEAKER) (test 66 % 60-91 kacx=5844) PLATELET FUNCTION SCREEN 60-100% indicates normal INTERP (BEAKER) (test platelet function jtsw=8063) [id number] (BEAKER) Rigoberto Duenas MD (electronic (test rryj=6794) signature) PLATELET COUNT AGG (BEAKER) 204 K/CU MM 150-450 (test lfsm=1868) POCT-GLUCOSE [id number] 08:27:00 Test Item Value Reference Range Comments POC-GLUCOSE METER (BEAKER) 189 mg/dL 70-110 TESTED AT [facility] [address] [facility] (test wdul=7072) [facility] [address] CALCIUM, [id number] 06:12:00 Test Item Value Reference Range Comments CALCIUM IONIZED (BEAKER) (test oidv=102) 1.07 mmol/L 1.12-1.27 PH, BLOOD (BEAKER) (test sdmn=5652) 7.36 [id number] 05:43:00 Test Item Value Reference Range Comments PHOSPHORUS (BEAKER) (test lnhd=307) 3.6 mg/dL 2.3-4.7 [id number] 05:43:00 Test Item Value Reference Range Comments MAGNESIUM (BEAKER) (test mluv=930) 2.1 mg/dL 1.6-2.6 BASIC METABOLIC [id number] 05:43:00 Test Item Value Reference Range Comments SODIUM (BEAKER) (test 137 meq/L 136-145 atpz=782) POTASSIUM (BEAKER) (test 4.7 meq/L 3.5-5.1 fmnn=296) CHLORIDE (BEAKER) (test 107 meq/L 98-107 eouv=704) CO2 (BEAKER) (test 24 meq/L 22-29 fipc=591) BLOOD UREA NITROGEN 38 mg/dL 7-21 (BEAKER) (test gizb=817) CREATININE (BEAKER) (test 1.72 mg/dL 0.57-1.25 ssvn=296) GLUCOSE RANDOM (BEAKER) 198 mg/dL 70-105 (test qpec=980) CALCIUM (BEAKER) (test 8.3 mg/dL 8.4-10.2 tbpm=926) EGFR (BEAKER) (test 30 mL/min/1.73 sq m ESTIMATED GFR IS NOT nywo=2436) ACCURATE CREATININE CLEARANCE IN PREDICTING GLOMERULAR FILTRATION RATE. ESTIMATED GFR IS NOT APPLICABLE FOR DIALYSIS PATIENTS. CBC W/PLT COUNT & AUTO [id number] 05:05:00 Test Item Value Reference Range Comments WHITE BLOOD CELL COUNT (BEAKER) (test jahu=605) 8.6 K/ L 3.5-10.5 RED BLOOD CELL COUNT (BEAKER) (test nfhj=607) 4.20 M/ L 3.93-5.22 HEMOGLOBIN (BEAKER) (test nbfx=463) 10.7 GM/DL 11.2-15.7 HEMATOCRIT (BEAKER) (test clik=513) 34.7 % 34.1-44.9 MEAN CORPUSCULAR VOLUME (BEAKER) (test hrtz=049) 82.6 fL 79.4-94.8 MEAN CORPUSCULAR HEMOGLOBIN (BEAKER) (test 25.5 pg 25.6-32.2 iaux=899) MEAN CORPUSCULAR HEMOGLOBIN CONC (BEAKER) (test 30.8 GM/DL 32.2-35.5 xiuj=967) RED CELL DISTRIBUTION WIDTH (BEAKER) (test 14.7 % 11.7-14.4 bjtr=875) PLATELET COUNT (BEAKER) (test xnts=067) 198 K/CU MM 150-450 MEAN PLATELET VOLUME (BEAKER) (test npyf=319) 11.1 fL 9.4-12.3 NUCLEATED RED BLOOD CELLS (BEAKER) (test 0 /100 WBC 0-0 matd=723) NEUTROPHILS RELATIVE PERCENT (BEAKER) (test 63 % ogol=839) LYMPHOCYTES RELATIVE PERCENT (BEAKER) (test 28 % ujrd=694) MONOCYTES RELATIVE PERCENT (BEAKER) (test 6 % nryu=966) EOSINOPHILS RELATIVE PERCENT (BEAKER) (test 3 % jphr=208) BASOPHILS RELATIVE PERCENT (BEAKER) (test 1 % euyz=298) NEUTROPHILS ABSOLUTE COUNT (BEAKER) (test 5.41 K/ L 1.56-6.13 ofro=613) LYMPHOCYTES ABSOLUTE COUNT (BEAKER) (test 2.37 K/ L 1.18-3.74 pnwc=771) MONOCYTES ABSOLUTE COUNT (BEAKER) (test 0.50 K/ L 0.24-0.36 vnlx=259) EOSINOPHILS ABSOLUTE COUNT (BEAKER) (test 0.27 K/ L 0.04-0.36 bxru=418) BASOPHILS ABSOLUTE COUNT (BEAKER) (test 0.06 K/ L 0.01-0.08 yuom=970) IMMATURE GRANULOCYTES-RELATIVE PERCENT (BEAKER) 0 % 0-1 (test zslk=1787) POCT-GLUCOSE [id number] 21:32:00 Test Item Value Reference Range Comments POC-GLUCOSE METER (BEAKER) 176 mg/dL 70-110 TESTED AT [address] (test jhhu=0240) [place] [address] POCT-GLUCOSE [id number] 20:27:00 Test Item Value Reference Range Comments POC-GLUCOSE METER (BEAKER) 161 mg/dL 70-110 TESTED AT [address] (test cvfm=9929) [place] [address] POCT-GLUCOSE [id number] 18:23:00 Test Item Value Reference Range Comments POC-GLUCOSE METER (BEAKER) 185 mg/dL 70-110 TESTED AT [address] (test sjrw=6130) [place] [address] POCT-GLUCOSE [id number] 13:26:00 Test Item Value Reference Range Comments POC-GLUCOSE METER (BEAKER) 282 mg/dL 70-110 TESTED AT [address] (test vmxm=1368) [place] [address] URINE [id number] 10:12:00 Test Item Value Reference Range Comments CULTURE (BEAKER) (test qnhu=1980) >100,000 col/mL skin todd POCT-GLUCOSE [id number] 09:01:00 Test Item Value Reference Range Comments POC-GLUCOSE METER (BEAKER) 268 mg/dL 70-110 TESTED AT [address] (test xgni=2512) [place] [address] CALCIUM, [id number] 05:39:00 Test Item Value Reference Range Comments CALCIUM IONIZED (BEAKER) (test edbj=626) 0.84 mmol/L 1.12-1.27 PH, BLOOD (BEAKER) (test kppc=4980) 7.35 BASIC METABOLIC [id number] 05:07:00 Test Item Value Reference Range Comments SODIUM (BEAKER) (test 135 meq/L 136-145 ohjr=732) POTASSIUM (BEAKER) (test 4.9 meq/L 3.5-5.1 kgsx=340) CHLORIDE (BEAKER) (test 106 meq/L 98-107 bakf=688) CO2 (BEAKER) (test 22 meq/L 22-29 yety=949) BLOOD UREA NITROGEN 43 mg/dL 7-21 (BEAKER) (test eaqf=109) CREATININE (BEAKER) (test 2.00 mg/dL 0.57-1.25 prew=571) GLUCOSE RANDOM (BEAKER) 161 mg/dL 70-105 (test rweu=667) CALCIUM (BEAKER) (test 8.2 mg/dL 8.4-10.2 fdrj=831) EGFR (BEAKER) (test 25 mL/min/1.73 sq m ESTIMATED GFR IS NOT oaen=1562) ACCURATE CREATININE CLEARANCE IN PREDICTING GLOMERULAR FILTRATION RATE. ESTIMATED GFR IS NOT APPLICABLE FOR DIALYSIS PATIENTS. [id number] 05:06:00 Test Item Value Reference Range Comments PHOSPHORUS (BEAKER) (test sgsw=387) 3.2 mg/dL 2.3-4.7 [id number] 05:06:00 Test Item Value Reference Range Comments MAGNESIUM (BEAKER) (test bewz=197) 2.3 mg/dL 1.6-2.6 CBC W/PLT COUNT & AUTO [id number] 04:42:00 Test Item Value Reference Range Comments WHITE BLOOD CELL COUNT (BEAKER) (test zftg=699) 9.5 K/ L 3.5-10.5 RED BLOOD CELL COUNT (BEAKER) (test iyep=046) 4.17 M/ L 3.93-5.22 HEMOGLOBIN (BEAKER) (test xfhm=313) 10.5 GM/DL 11.2-15.7 HEMATOCRIT (BEAKER) (test efzw=735) 34.2 % 34.1-44.9 MEAN CORPUSCULAR VOLUME (BEAKER) (test vwnr=525) 82.0 fL 79.4-94.8 MEAN CORPUSCULAR HEMOGLOBIN (BEAKER) (test 25.2 pg 25.6-32.2 gmzw=140) MEAN CORPUSCULAR HEMOGLOBIN CONC (BEAKER) (test 30.7 GM/DL 32.2-35.5 rxlw=244) RED CELL DISTRIBUTION WIDTH (BEAKER) (test 14.6 % 11.7-14.4 buwz=309) PLATELET COUNT (BEAKER) (test iqie=707) 177 K/CU MM 150-450 MEAN PLATELET VOLUME (BEAKER) (test ziab=408) 11.1 fL 9.4-12.3 NUCLEATED RED BLOOD CELLS (BEAKER) (test 0 /100 WBC 0-0 ettq=280) NEUTROPHILS RELATIVE PERCENT (BEAKER) (test 55 % ibdp=677) LYMPHOCYTES RELATIVE PERCENT (BEAKER) (test 36 % uwch=021) MONOCYTES RELATIVE PERCENT (BEAKER) (test 6 % bfec=389) EOSINOPHILS RELATIVE PERCENT (BEAKER) (test 2 % verz=383) BASOPHILS RELATIVE PERCENT (BEAKER) (test 1 % tran=813) NEUTROPHILS ABSOLUTE COUNT (BEAKER) (test 5.20 K/ L 1.56-6.13 xtwd=025) LYMPHOCYTES ABSOLUTE COUNT (BEAKER) (test 3.37 K/ L 1.18-3.74 aehw=922) MONOCYTES ABSOLUTE COUNT (BEAKER) (test 0.59 K/ L 0.24-0.36 iuxq=928) EOSINOPHILS ABSOLUTE COUNT (BEAKER) (test 0.21 K/ L 0.04-0.36 wxkb=870) BASOPHILS ABSOLUTE COUNT (BEAKER) (test 0.07 K/ L 0.01-0.08 zgsb=167) IMMATURE GRANULOCYTES-RELATIVE PERCENT (BEAKER) 0 % 0-1 (test cgsi=5798) RHEUMATOID FACTOR AB, REFLEX TO [id number] 01:52:00 Test Item Value Reference Range Comments RHEUMATOID FACTOR (BEAKER) (test mwfb=020) Negative POCT-GLUCOSE [id number] 21:57:00 Test Item Value Reference Range Comments POC-GLUCOSE METER (BEAKER) 105 mg/dL 70-110 TESTED [facility] [place] [address] [facility] (test wwln=4404) [place] [id number] POCT-GLUCOSE [id number] 18:11:00 Test Item Value Reference Range Comments POC-GLUCOSE METER (BEAKER) 312 mg/dL 70-110 Notified GUILHERME PIERRE/TESTED AT [facility] (test fmvx=4786) [address] [place] [address] PET, CARDIAC PERFUSION MULTIPLE STUDIES, REST AND [id number] 16:28: 00Reason for exam:->pvcs, known cadFINAL REPORT PROCEDURE: Rest/Stress MYOCARDIAL PERFUSION PET with regadenoson\XA9\ CPT CODE: 08511 INDICATION: Defined extent and severity of known [...] 23% . LVEF at stress is 36%. Hand [employer] [facility] CT images revealed a right pleural effusion [...] MDReport Verified Date/Time: 05/15/2017 16:28:12 Reading Location: [address] [facility] [place] [facility] RAD, CHEST, 1 VIEW, NON [id number] 15:56:00Reason for exam:->SOBShould this be performed at the bedside?->YesFINAL REPORT Comparison: 05/14/2017 TECHNIQUE: Single view of the chest FINDINGS: There is a small right pleural effusion with nonspecific airspace disease. This is unchanged. Left lung is grossly clear. Cardiac silhouette is enlarged. IMPRESSION: 1. No acute cardiopulmonary disease. Signed : Sixto Monk MDReport Verified Date/Time: 05/15/2017 15:56:39 Reading Location : [facility] Radiology Reading Room POCT-GLUCOSE [id number] 12:54:00 Test Item Value Reference Range Comments POC-GLUCOSE METER (BEAKER) 308 mg/dL 70-110 Notified GUILHERME PIERRE/TESTED AT [facility] (test acta=5191) [address] [facility] [address] U/S, RENAL WITH [id number] 11:04:00Reason for exam:->tracy, htnShould this be performed [...] the resistive indices throughout. Signed : [facility] Verified Date/Time: 05/15/2017 11:04:01 Reading Location : [place] [id number] Ultrasound Reading Room ANA TITER AND [id number] 10:57:00 Test Item Value Reference Range Comments ROGER TITER (BEAKER) (test pbfi=9230) :160 ROGER PATTERN (BEAKER) (test dhlb=2839) Speckled ANTI-NUCLEAR ANTIBODY (ROGER)2017-05-15 10:56:00 Test Item Value Reference Range Comments ANTI-NUCLEAR ANTIBODY (ROGER) (BEAKER) (test Positive Negative wfzk=358) CALCIUM, [id number] 06:00:00 Test Item Value Reference Range Comments CALCIUM IONIZED (BEAKER) (test lmrt=480) 1.07 mmol/L 1.12-1.27 PH, BLOOD (BEAKER) (test nlhm=7950) 7.28 HEPATITIS PANEL, [id number] 05:01:00 Test Item Value Reference Range Comments HEPATITIS A IGM ANTIBODY (BEAKER) (test Nonreactive Nonreactive pvgk=261) HEPATITIS B CORE IGM ANTIBODY (BEAKER) (test Nonreactive Nonreactive ujzc=680) HEPATITIS C ANTIBODY (BEAKER) (test ugif=310) Nonreactive Nonreactive HEPATITIS B SURFACE ANTIGEN (2) (BEAKER) (test Nonreactive Nonreactive dxuv=9086) BASIC METABOLIC [id number] 04:48:00 Test Item Value Reference Range Comments SODIUM (BEAKER) (test 135 meq/L 136-145 jyqk=790) POTASSIUM (BEAKER) (test 5.2 meq/L 3.5-5.1 hfnm=377) CHLORIDE (BEAKER) (test 104 meq/L 98-107 hifc=503) CO2 (BEAKER) (test 22 meq/L 22-29 brdd=293) BLOOD UREA NITROGEN 46 mg/dL 7-21 (BEAKER) (test xjgk=098) CREATININE (BEAKER) (test 2.64 mg/dL 0.57-1.25 dfhs=055) GLUCOSE RANDOM (BEAKER) 176 mg/dL 70-105 (test tmvi=604) CALCIUM (BEAKER) (test 8.2 mg/dL 8.4-10.2 wdes=996) EGFR (BEAKER) (test 18 mL/min/1.73 sq m ESTIMATED GFR IS NOT iyjd=6975) ACCURATE CREATININE CLEARANCE IN PREDICTING GLOMERULAR FILTRATION RATE. ESTIMATED GFR IS NOT APPLICABLE FOR DIALYSIS PATIENTS. URIC [id number] 04:41:00 Test Item Value Reference Range Comments URIC ACID (BEAKER) (test qcwg=649) 10.3 mg/dL 2.6-7.2 [id number] 04:41:00 Test Item Value Reference Range Comments MAGNESIUM (BEAKER) (test pynq=541) 2.0 mg/dL 1.6-2.6 [id number] 04:41:00 Test Item Value Reference Range Comments PHOSPHORUS (BEAKER) (test rxoa=261) 4.2 mg/dL 2.3-4.7 COMPLEMENT COMPONENT [id number] 04:38:00 Test Item Value Reference Range Comments C4 COMPLEMENT (BEAKER) (test lwsw=821) 28 mg/dL 15-57 COMPLEMENT COMPONENT [id number] 04:38:00 Test Item Value Reference Range Comments C3 COMPLEMENT (BEAKER) (test ugaw=799) 103 mg/dL 82-193 CBC W/PLT COUNT & AUTO [id number] 04:22:00 Test Item Value Reference Range Comments WHITE BLOOD CELL COUNT (BEAKER) (test kxvz=090) 11.0 K/ L 3.5-10.5 RED BLOOD CELL COUNT (BEAKER) (test wthw=429) 4.25 M/ L 3.93-5.22 HEMOGLOBIN (BEAKER) (test kuvg=231) 10.6 GM/DL 11.2-15.7 HEMATOCRIT (BEAKER) (test gjgz=297) 35.3 % 34.1-44.9 MEAN CORPUSCULAR VOLUME (BEAKER) (test egro=515) 83.1 fL 79.4-94.8 MEAN CORPUSCULAR HEMOGLOBIN (BEAKER) (test 24.9 pg 25.6-32.2 jqly=003) MEAN CORPUSCULAR HEMOGLOBIN CONC (BEAKER) (test 30.0 GM/DL 32.2-35.5 shbn=931) RED CELL DISTRIBUTION WIDTH (BEAKER) (test 14.5 % 11.7-14.4 vjye=734) PLATELET COUNT (BEAKER) (test pzdm=502) 185 K/CU MM 150-450 MEAN PLATELET VOLUME (BEAKER) (test suqa=678) 10.9 fL 9.4-12.3 NUCLEATED RED BLOOD CELLS (BEAKER) (test 0 /100 WBC 0-0 dpeb=249) NEUTROPHILS RELATIVE PERCENT (BEAKER) (test 61 % zcfq=390) LYMPHOCYTES RELATIVE PERCENT (BEAKER) (test 31 % ebdl=021) MONOCYTES RELATIVE PERCENT (BEAKER) (test 5 % cija=055) EOSINOPHILS RELATIVE PERCENT (BEAKER) (test 2 % ilal=046) BASOPHILS RELATIVE PERCENT (BEAKER) (test 1 % aqeb=599) NEUTROPHILS ABSOLUTE COUNT (BEAKER) (test 6.72 K/ L 1.56-6.13 mjap=631) LYMPHOCYTES ABSOLUTE COUNT (BEAKER) (test 3.35 K/ L 1.18-3.74 snbh=549) MONOCYTES ABSOLUTE COUNT (BEAKER) (test 0.59 K/ L 0.24-0.36 veoe=479) EOSINOPHILS ABSOLUTE COUNT (BEAKER) (test 0.21 K/ L 0.04-0.36 dwgq=086) BASOPHILS ABSOLUTE COUNT (BEAKER) (test 0.06 K/ L 0.01-0.08 lojn=356) IMMATURE GRANULOCYTES-RELATIVE PERCENT (BEAKER) 0 % 0-1 (test kdpw=3228) POCT-GLUCOSE [id number] 21:46:00 Test Item Value Reference Range Comments POC-GLUCOSE METER (BEAKER) 173 mg/dL 70-110 TESTED AT [address] (test xmxq=3243) [place] [address] POCT-GLUCOSE [id number] 21:46:00 Test Item Value Reference Range Comments POC-GLUCOSE METER (BEAKER) 154 mg/dL 70-110 TESTED AT [address] (test tblg=9830) [place] [address] POCT-GLUCOSE [id number] 18:17:00 Test Item Value Reference Range Comments POC-GLUCOSE METER (BEAKER) 175 mg/dL 70-110 TESTED AT [address] (test bpdk=6835) [place] [address] RAD, CHEST, 1 VIEW, NON [id number] 14:56:00Reason for exam:->SOBShould this be performed at the bedside?->YesFINAL REPORT INDICATION: SOB COMPARISON: May 13, 2017 TECHNIQUE: Chest radiograph, single view, portable technique. FINDINGS / IMPRESSION: Enlarged heart shadow, small rightpleural effusion, and pulmonary venous congestion, again demonstrated. No pneumothorax or consolidation. Osseous structures unremarkable. Signed: Satnam [facility] Ver[facility] Date/Time: 05/14/2017 14:56:58 Reading Location: [facility] Mammo Reading Room POCT-GLUCOSE [id number] 12:18:00 Test Item Value Reference Range Comments POC-GLUCOSE METER (BEAKER) 313 mg/dL 70-110 TESTED AT [address] (test bvbk=2410) [place] [address] HIV-1 ANTIGEN WITH HIV-1/2 [id number] 12:07:00 Test Item Value Reference Range Comments HIV-1 ANTIGEN WITH HIV 1\T\2 ANTIBODY (2) Nonreactive Nonreactive (BEAKER) (test ylra=8006) CALCIUM, [id number] 06:37:00 Test Item Value Reference Range Comments CALCIUM IONIZED (BEAKER) (test vdra=829) 1.08 mmol/L 1.12-1.27 PH, BLOOD (BEAKER) (test gmrv=9231) 7.25 BASIC METABOLIC [id number] 06:26:00 Test Item Value Reference Range Comments SODIUM (BEAKER) (test 134 meq/L 136-145 fnao=708) POTASSIUM (BEAKER) (test 5.1 meq/L 3.5-5.1 crkm=343) CHLORIDE (BEAKER) (test 103 meq/L 98-107 cnob=331) CO2 (BEAKER) (test 25 meq/L 22-29 utag=808) BLOOD UREA NITROGEN 45 mg/dL 7-21 (BEAKER) (test jbef=911) CREATININE (BEAKER) (test 2.92 mg/dL 0.57-1.25 lcjm=586) GLUCOSE RANDOM (BEAKER) 163 mg/dL 70-105 (test yyzn=197) CALCIUM (BEAKER) (test 8.1 mg/dL 8.4-10.2 eaym=895) EGFR (BEAKER) (test 16 mL/min/1.73 sq m ESTIMATED GFR IS NOT qkri=9561) ACCURATE CREATININE CLEARANCE IN PREDICTING GLOMERULAR FILTRATION RATE. ESTIMATED GFR IS NOT APPLICABLE FOR DIALYSIS PATIENTS. B-TYPE NATRIURETIC FACTOR (BNP)2017-05-14 06:26:00 Test Item Value Reference Range Comments B-TYPE NATRIURETIC PEPTIDE (BEAKER) (test 474 pg/mL 0-100 igeu=374) [id number] 06:25:00 Test Item Value Reference Range Comments PHOSPHORUS (BEAKER) (test zerp=799) 5.7 mg/dL 2.3-4.7 [id number] 06:25:00 Test Item Value Reference Range Comments MAGNESIUM (BEAKER) (test kwqe=037) 1.5 mg/dL 1.6-2.6 CBC W/PLT COUNT & AUTO [id number] 06:07:00 Test Item Value Reference Range Comments WHITE BLOOD CELL COUNT (BEAKER) (test chjq=465) 8.9 K/ L 3.5-10.5 RED BLOOD CELL COUNT (BEAKER) (test wkku=553) 4.32 M/ L 3.93-5.22 HEMOGLOBIN (BEAKER) (test izfa=333) 11.0 GM/DL 11.2-15.7 HEMATOCRIT (BEAKER) (test ovhw=402) 36.6 % 34.1-44.9 MEAN CORPUSCULAR VOLUME (BEAKER) (test wndt=076) 84.7 fL 79.4-94.8 MEAN CORPUSCULAR HEMOGLOBIN (BEAKER) (test 25.5 pg 25.6-32.2 hygk=718) MEAN CORPUSCULAR HEMOGLOBIN CONC (BEAKER) (test 30.1 GM/DL 32.2-35.5 ogxy=821) RED CELL DISTRIBUTION WIDTH (BEAKER) (test 14.6 % 11.7-14.4 tijc=451) PLATELET COUNT (BEAKER) (test dsgb=485) 201 K/CU MM 150-450 MEAN PLATELET VOLUME (BEAKER) (test fypx=982) 11.1 fL 9.4-12.3 NUCLEATED RED BLOOD CELLS (BEAKER) (test 0 /100 WBC 0-0 ycnc=823) NEUTROPHILS RELATIVE PERCENT (BEAKER) (test 55 % twfc=294) LYMPHOCYTES RELATIVE PERCENT (BEAKER) (test 36 % ylop=912) MONOCYTES RELATIVE PERCENT (BEAKER) (test 5 % quyi=306) EOSINOPHILS RELATIVE PERCENT (BEAKER) (test 3 % qjih=129) BASOPHILS RELATIVE PERCENT (BEAKER) (test 1 % qpcb=401) NEUTROPHILS ABSOLUTE COUNT (BEAKER) (test 4.85 K/ L 1.56-6.13 bgkn=858) LYMPHOCYTES ABSOLUTE COUNT (BEAKER) (test 3.18 K/ L 1.18-3.74 zanr=446) MONOCYTES ABSOLUTE COUNT (BEAKER) (test 0.47 K/ L 0.24-0.36 hjrf=322) EOSINOPHILS ABSOLUTE COUNT (BEAKER) (test 0.25 K/ L 0.04-0.36 ndld=980) BASOPHILS ABSOLUTE COUNT (BEAKER) (test 0.07 K/ L 0.01-0.08 ytjl=373) IMMATURE GRANULOCYTES-RELATIVE PERCENT (BEAKER) 0 % 0-1 (test wemp=9313) POCT-GLUCOSE [id number] 22:38:00 Test Item Value Reference Range Comments POC-GLUCOSE METER (BEAKER) 262 mg/dL 70-110 TESTED AT [facility] [address] (test eurr=6877) [facility] [address] PROTEIN, RANDOM [id number] 22:18:00 Test Item Value Reference Range Comments PROTEIN, URINE (BEAKER) (test ytgo=8160) 641 mg/dL 0-14 CREATININE, RANDOM [id number] 22:07:00 Test Item Value Reference Range Comments CREATININE URINE (BEAKER) (test hnkk=186) 124.9 mg/dL Reference Range: No NormalsURINALYSIS W/ [id number] 22:03:00 Test Item Value Reference Range Comments COLOR (BEAKER) (test jacs=507) Yellow CLARITY (BEAKER) (test kqmg=389) Cloudy SPECIFIC GRAVITY UA (BEAKER) (test uxci=695) 1.015 1.001-1.035 PH UA (BEAKER) (test rwey=819) 5.5 5.0-8.0 PROTEIN UA (BEAKER) (test sqhc=627) 300 mg/dL Negative GLUCOSE UA (BEAKER) (test fwvg=670) 300 mg/dL Negative KETONES UA (BEAKER) (test mrca=057) Negative Negative BILIRUBIN UA (BEAKER) (test chfa=515) Negative Negative BLOOD UA (BEAKER) (test ijyd=463) Trace Negative NITRITE UA (BEAKER) (test ntzx=949) Negative Negative LEUKOCYTE ESTERASE UA (BEAKER) (test nqfn=682) Moderate Negative UROBILINOGEN UA (BEAKER) (test jdnn=785) 0.2 mg/dL 0.2-1.0 RBC UA (BEAKER) (test bnhs=212) 11 /HPF WBC UA (BEAKER) (test ikhc=306) 36 /HPF MUCUS (BEAKER) (test djau=9879) Few SQUAMOUS EPITHELIAL (BEAKER) (test zuka=176) 12 /HPF HYALINE CASTS (BEAKER) (test skxy=578) 66 /LPF CASTS (BEAKER) (test baaj=3795) 112 /LPF YEAST (BEAKER) (test goxc=0710) Moderate SOURCE(BEAKER) (test iuay=1697) Urine, Voided [id number] 19:49:00 Test Item Value Reference Range Comments SODIUM (BEAKER) (test kybj=755) 136 meq/L 136-145 POTASSIUM (BEAKER) (test 5.1 meq/L 3.5-5.1 Specimen slightly hemolyzed tfmx=219) CHLORIDE (BEAKER) (test 104 meq/L 98-107 qboj=307) CO2 (BEAKER) (test zmlv=786) 25 meq/L 22-29 Call if K > 5POCT-GLUCOSE [id number] 11:37:00 Test Item Value Reference Range Comments POC-GLUCOSE METER (BEAKER) 293 mg/dL 70-110 TESTED AT [address] (test xigi=0882) [place] [address] RAD, CHEST, 1 VIEW, NON [id number] 10:22:00Reason for exam:->SOBShould this be performed at the bedside?->YesFINAL REPORT Chest one view Discussion: There is cardiomegaly and interstitial congestion. A small right-sided effusion is noted. No pneumothorax. IMPRESSIONS: Suspected CHF. Signed: Jeannette Nava Verified Date/Time: 05/13/2017 10:22:34 Reading Location: [facility] Radiology Reading Room POCT-GLUCOSE [id number] 08:34:00 Test Item Value Reference Range Comments POC-GLUCOSE METER (BEAKER) 178 mg/dL 70-110 TESTED AT [address] (test wbsk=3742) [place] [address] POCT-GLUCOSE [id number] 06:53:00 Test Item Value Reference Range Comments POC-GLUCOSE METER (BEAKER) 167 mg/dL 70-110 TESTED AT [address] (test sjqq=4856) [place] [address] [id number] 04:48:00 Test Item Value Reference Range Comments BLOOD UREA NITROGEN (BEAKER) (test httd=739) 36 mg/dL 7-21 [id number] 04:48:00 Test Item Value Reference Range Comments SODIUM (BEAKER) (test rgnd=076) 139 meq/L 136-145 POTASSIUM (BEAKER) (test jyaz=495) 5.2 meq/L 3.5-5.1 CHLORIDE (BEAKER) (test qzgy=855) 109 meq/L 98-107 CO2 (BEAKER) (test pqzg=872) 23 meq/L 22-29 [id number] 04:48:00 Test Item Value Reference Range Comments CREATININE (BEAKER) (test 1.73 mg/dL 0.57-1.25 zbdv=740) EGFR (BEAKER) (test 30 mL/min/1.73 sq m ESTIMATED GFR IS NOT wgeo=1542) ACCURATE CREATININE CLEARANCE IN PREDICTING GLOMERULAR FILTRATION RATE. ESTIMATED GFR IS NOT APPLICABLE FOR DIALYSIS PATIENTS. CBC (HEMOGRAM ONLY)2017-05-13 04:33:00 Test Item Value Reference Range Comments WHITE BLOOD CELL COUNT (BEAKER) (test oedj=606) 10.2 K/ L 3.5-10.5 RED BLOOD CELL COUNT (BEAKER) (test wxpy=943) 4.54 M/ L 3.93-5.22 HEMOGLOBIN (BEAKER) (test tojo=555) 11.4 GM/DL 11.2-15.7 HEMATOCRIT (BEAKER) (test bsrs=240) 37.6 % 34.1-44.9 MEAN CORPUSCULAR VOLUME (BEAKER) (test pauf=133) 82.8 fL 79.4-94.8 MEAN CORPUSCULAR HEMOGLOBIN (BEAKER) (test 25.1 pg 25.6-32.2 pdou=642) MEAN CORPUSCULAR HEMOGLOBIN CONC (BEAKER) (test 30.3 GM/DL 32.2-35.5 ifnh=372) RED CELL DISTRIBUTION WIDTH (BEAKER) (test 14.7 % 11.7-14.4 tujq=323) PLATELET COUNT (BEAKER) (test uryh=974) 194 K/CU MM 150-450 MEAN PLATELET VOLUME (BEAKER) (test eaan=133) 10.9 fL 9.4-12.3 NUCLEATED RED BLOOD CELLS (BEAKER) (test 0 /100 WBC 0-0 ksdm=264) [id number] 23:29:00 Test Item Value Reference Range Comments ACTIVATED CLOTTING TIME 136 sec TESTED AT [address] (BEAKER) (test myca=773) [facility] [address] [id number] 20:13:00 Test Item Value Reference Range Comments ACTIVATED CLOTTING TIME 175 sec TESTED AT [address] (BEAKER) (test sblf=980) [place] [address] [id number] 18:36:00 Test Item Value Reference Range Comments ACTIVATED CLOTTING TIME 202 sec TESTED AT [place] [address] [facility] (test uwcy=020) [place] [address] [id number] 18:03:00 Test Item Value Reference Range Comments ACTIVATED CLOTTING TIME 208 sec TESTED AT [address] (BEAKER) (test xmgy=821) [place] [address] BASIC METABOLIC [id number] 11:57:00 Test Item Value Reference Range Comments SODIUM (BEAKER) (test 139 meq/L 136-145 exir=074) POTASSIUM (BEAKER) (test 4.9 meq/L 3.5-5.1 hvgn=201) CHLORIDE (BEAKER) (test 107 meq/L 98-107 zhvm=058) CO2 (BEAKER) (test 27 meq/L 22-29 ndkr=062) BLOOD UREA NITROGEN 36 mg/dL 7-21 (BEAKER) (test rqyv=929) CREATININE (BEAKER) (test 1.60 mg/dL 0.57-1.25 nbkn=964) GLUCOSE RANDOM (BEAKER) 187 mg/dL 70-105 (test hedp=975) CALCIUM (BEAKER) (test 8.6 mg/dL 8.4-10.2 tamp=682) EGFR (BEAKER) (test 33 mL/min/1.73 sq m ESTIMATED GFR IS NOT kqyb=2009) ACCURATE CREATININE CLEARANCE IN PREDICTING GLOMERULAR FILTRATION RATE. ESTIMATED GFR IS NOT APPLICABLE FOR DIALYSIS PATIENTS. PROTHROMBIN [id number] 11:15:00 Test Item Value Reference Range Comments PROTIME (BEAKER) (test rhfk=659) 14.8 seconds 11.7-14.7 INR (BEAKER) (test idvq=067) 1.2 <=5.9 RECOMMENDED COUMADIN/WARFARIN INR THERAPY RANGESSTANDARD DOSE: 2.0 - 3.0 Includes: PROPHYLAXIS forvenous thrombosis, systemic embolization; TREATMENT for venous thrombosis and/or pulmonary embolus.HIGH RISK: Target INR is 2.5-3.5 for patients with mechanical heart valves.Within 24 hours, if on CoumadinCBC W/ PLT COUNT & AUTO [id number] 11:01:00 Test Item Value Reference Range Comments WHITE BLOOD CELL COUNT (BEAKER) (test avag=865) 9.1 K/ L 3.5-10.5 RED BLOOD CELL COUNT (BEAKER) (test pdbo=205) 4.62 M/ L 3.93-5.22 HEMOGLOBIN (BEAKER) (test rwos=963) 11.7 GM/DL 11.2-15.7 HEMATOCRIT (BEAKER) (test slpj=633) 38.0 % 34.1-44.9 MEAN CORPUSCULAR VOLUME (BEAKER) (test rihd=742) 82.3 fL 79.4-94.8 MEAN CORPUSCULAR HEMOGLOBIN (BEAKER) (test 25.3 pg 25.6-32.2 fdtg=379) MEAN CORPUSCULAR HEMOGLOBIN CONC (BEAKER) (test 30.8 GM/DL 32.2-35.5 lsms=994) RED CELL DISTRIBUTION WIDTH (BEAKER) (test 14.5 % 11.7-14.4 cscn=037) PLATELET COUNT (BEAKER) (test wtlj=784) 205 K/CU MM 150-450 MEAN PLATELET VOLUME (BEAKER) (test rkoh=816) 10.6 fL 9.4-12.3 NUCLEATED RED BLOOD CELLS (BEAKER) (test 0 /100 WBC 0-0 pvzb=512) NEUTROPHILS RELATIVE PERCENT (BEAKER) (test 59 % uyyg=690) LYMPHOCYTES RELATIVE PERCENT (BEAKER) (test 32 % pmmg=956) MONOCYTES RELATIVE PERCENT (BEAKER) (test 5 % qyyn=680) EOSINOPHILS RELATIVE PERCENT (BEAKER) (test 3 % soim=468) BASOPHILS RELATIVE PERCENT (BEAKER) (test 1 % wbqv=739) NEUTROPHILS ABSOLUTE COUNT (BEAKER) (test 5.36 K/ L 1.56-6.13 nwol=967) LYMPHOCYTES ABSOLUTE COUNT (BEAKER) (test 2.86 K/ L 1.18-3.74 asnx=423) MONOCYTES ABSOLUTE COUNT (BEAKER) (test 0.48 K/ L 0.24-0.36 tmgs=884) EOSINOPHILS ABSOLUTE COUNT (BEAKER) (test 0.27 K/ L 0.04-0.36 czbp=944) BASOPHILS ABSOLUTE COUNT (BEAKER) (test 0.08 K/ L 0.01-0.08 fvyr=852) IMMATURE GRANULOCYTES-RELATIVE PERCENT (BEAKER) 0 % 0-1 (test khnd=4803) POCT-GLUCOSE [id number] 12:35:00 Test Item Value Reference Range Comments POC-GLUCOSE METER (BEAKER) 249 mg/dL 70-110 TESTED AT [address] (test hhni=4317) [facility] [address] POCT-GLUCOSE [id number] 09:10:00 Test Item Value Reference Range Comments POC-GLUCOSE METER (BEAKER) 155 mg/dL 70-110 TESTED AT [address] (test lhuc=2456) [facility] [address] BASIC METABOLIC [id number] 05:39:00 Test Item Value Reference Range Comments SODIUM (BEAKER) (test 138 meq/L 136-145 mmkj=246) POTASSIUM (BEAKER) (test 4.7 meq/L 3.5-5.1 awuh=324) CHLORIDE (BEAKER) (test 107 meq/L 98-107 ciol=086) CO2 (BEAKER) (test 25 meq/L 22-29 kqzs=522) BLOOD UREA NITROGEN 36 mg/dL 7-21 (BEAKER) (test gecw=160) CREATININE (BEAKER) (test 1.75 mg/dL 0.57-1.25 mbko=706) GLUCOSE RANDOM (BEAKER) 126 mg/dL 70-105 (test qohk=840) CALCIUM (BEAKER) (test 8.2 mg/dL 8.4-10.2 clmg=740) EGFR (BEAKER) (test 29 mL/min/1.73 sq m ESTIMATED GFR IS NOT rpsw=4373) ACCURATE CREATININE CLEARANCE IN PREDICTING GLOMERULAR FILTRATION RATE. ESTIMATED GFR IS NOT APPLICABLE FOR DIALYSIS PATIENTS. [id number] 05:27:00 Test Item Value Reference Range Comments PHOSPHORUS (BEAKER) (test aejo=890) 5.0 mg/dL 2.3-4.7 [id number] 05:27:00 Test Item Value Reference Range Comments MAGNESIUM (BEAKER) (test pjfv=300) 1.6 mg/dL 1.6-2.6 POCT-GLUCOSE [id number] 05:25:00 Test Item Value Reference Range Comments POC-GLUCOSE METER (BEAKER) 144 mg/dL 70-110 TESTED AT [address] (test bvva=3153) [place] [address] PROTHROMBIN [id number] 04:58:00 Test Item Value Reference Range Comments PROTIME (BEAKER) (test zttp=141) 14.2 seconds 11.7-14.7 INR (BEAKER) (test jtna=742) 1.1 <=5.9 RECOMMENDED COUMADIN/WARFARIN INR THERAPY RANGESSTANDARD DOSE: 2.0 - 3.0 Includes: PROPHYLAXIS forvenous thrombosis, systemic embolization; TREATMENT for venous thrombosis and/or pulmonary embolus.HIGH RISK: Target INR is 2.5-3.5 for patients with mechanical heart valves.POCT-GLUCOSE [id number] 23:55:00 Test Item Value Reference Range Comments POC-GLUCOSE METER (BEAKER) 86 mg/dL 70-110 TESTED AT [address] (test ygnf=1444) [place] [address] B-TYPE NATRIURETIC FACTOR (BNP)2017-04-22 18:13:00 Test Item Value Reference Range Comments B-TYPE NATRIURETIC PEPTIDE (BEAKER) (test 1203 pg/mL 0-100 unhu=087) POCT-GLUCOSE [id number] 17:36:00 Test Item Value Reference Range Comments POC-GLUCOSE METER (BEAKER) 259 mg/dL 70-110 TESTED AT [address] (test czlv=2547) [place] [address] HEMOGLOBIN [id number] 14:24:00 Test Item Value Reference Range Comments HEMOGLOBIN A1C (BEAKER) (test enne=587) 10.5 % 4.3-6.1 POCT-GLUCOSE [id number] 12:34:00 Test Item Value Reference Range Comments POC-GLUCOSE METER (BEAKER) 207 mg/dL 70-110 TESTED AT [address] (test shmv=7046) [place] [address] [id number] 07:53:00 Test Item Value Reference Range Comments PHOSPHORUS (BEAKER) (test qnzf=220) 3.9 mg/dL 2.3-4.7 [id number] 07:53:00 Test Item Value Reference Range Comments MAGNESIUM (BEAKER) (test prej=316) 1.6 mg/dL 1.6-2.6 BASIC METABOLIC [id number] 07:53:00 Test Item Value Reference Range Comments SODIUM (BEAKER) (test 139 meq/L 136-145 wvcw=169) POTASSIUM (BEAKER) (test 4.5 meq/L 3.5-5.1 ccrk=539) CHLORIDE (BEAKER) (test 108 meq/L 98-107 sjmg=777) CO2 (BEAKER) (test 25 meq/L 22-29 ptbw=661) BLOOD UREA NITROGEN 29 mg/dL 7-21 (BEAKER) (test kygy=358) CREATININE (BEAKER) (test 1.54 mg/dL 0.57-1.25 joty=437) GLUCOSE RANDOM (BEAKER) 211 mg/dL 70-105 (test msws=246) CALCIUM (BEAKER) (test 8.5 mg/dL 8.4-10.2 usnq=270) EGFR (BEAKER) (test 34 mL/min/1.73 sq m ESTIMATED GFR IS NOT cbhp=0489) ACCURATE CREATININE CLEARANCE IN PREDICTING GLOMERULAR FILTRATION RATE. ESTIMATED GFR IS NOT APPLICABLE FOR DIALYSIS PATIENTS. TROPONIN [id number] 07:29:00 Test Item Value Reference Range Comments TROPONIN I (BEAKER) (test gvin=040) 0.05 ng/mL 0.00-0.03 Troponin I (TnI) levels [...] acidosis, acute neurological disease, and persistent tachyarrhythmia.PROTHROMBIN [id number] 07:01:00 Test Item Value Reference Range Comments PROTIME (BEAKER) (test pbqp=567) 13.8 seconds 11.7-14.7 INR (BEAKER) (test wcdc=794) 1.1 <=5.9 RECOMMENDED COUMADIN/WARFARIN INR THERAPY RANGESSTANDARD DOSE: 2.0 - 3.0 Includes: PROPHYLAXIS forvenous thrombosis, systemic embolization; TREATMENT for venous thrombosis and/or pulmonary embolus.HIGH RISK: Target INR is 2.5-3.5 for patients with mechanical heart valves.POCT-GLUCOSE [id number] 06:28:00 Test Item Value Reference Range Comments POC-GLUCOSE METER (BEAKER) 198 mg/dL 70-110 TESTED AT [address] (test bvbg=8075) [place] [id number] CREATINE KINASE (CK), TOTAL AND [id number] 00:49:00 Test Item Value Reference Range Comments CREATINE KINASE TOTAL (BEAKER) (test xmas=582) 69 U/L 29-200 CREATINE KINASE-MB (BEAKER) (test hvgt=959) 4.3 ng/mL 0.0-6.6 CREATINE KINASE-MB INDEX (BEAKER) (test xtso=330) 6.2 % CK-MB Reference Range:<6.7 Normal6.7-10.0 Borderline>10.0 AbnormalTROPONIN [id number] 00:49:00 Test Item Value Reference Range Comments TROPONIN I (BEAKER) (test qkju=462) 0.05 ng/mL 0.00-0.03 Troponin I (TnI) levels [...] acidosis, acute neurological disease, and persistent tachyarrhythmia.POCT-GLUCOSE [id number] 20:44:00 Test Item Value Reference Range Comments POC-GLUCOSE METER (BEAKER) 269 mg/dL 70-110 TESTED AT [address] (test laii=3896) [place] [id number]
[2017-12-27] MEDS ORDERED: FENTANYL CITR 100 MCG/2 ML ONE (14:34)
[2017-12-27 14:44] LABS: Absolute Lymphocytes (CBC) 2.3 K/uL (0.7-4.9); Absolute Monocytes 0.5 K/uL (0.1-1.3); Absolute Neutrophil 6.1 K/uL (1.8-8.0); Basophils % 1.1 % (0-1.3); Eosinophils % 1.5 % (0-4.4); Hematocrit 33.4 % (36.0-45.0); MCH 25.9 pg (27.0-35.0); MCV 78.5 fL (80-100); MPV 7.2 fL (7.6-11.3); Monocytes % 5.4 % (3.3-12.3); RBC Red Blood Cell Count 4.25 M/uL (3.86-4.86)
[2017-12-27 15:22] LABS: ALT/SGPT 21 U/L (12-78); AST/SGOT 19 U/L (15-37); Albumin 2.3 g/dL (3.4-5.0); Alkaline Phosphatase 209 U/L (45-117); BUN Blood Urea Nitrogen 41 mg/dL (7-18); Bicarbonate 27 mmol/L (21-32); Bilirubin Direct < 0.1 mg/dL (0-0.2); Bilirubin Total 0.2 mg/dL (0.2-1.0); Glucose Level 209 mg/dL (74-106); Lipase 209 U/L (73-393); Potassium 4.5 mmol/L (3.5-5.1); Protein, Total 7.6 g/dL (6.4-8.2); Sodium Level 141 mmol/L (136-145)
[2017-12-27] MEDS ORDERED: cloNIDine HCl 0.1 MG TAB ONE (15:34)
--- NOTE | 2017-12-27 15:58 | RAD REPORT ---
EXAM DESCRIPTION: CT - Abdomen Pelvis Wo Contrast - 12/27/2017 3:50 pm CLINICAL HISTORY: Abdominal pain, left flank pain COMPARISON: May 2012 TECHNIQUE: Axial [address] imaging of the abdomen and pelvis was performed without IV contrast. No IV contrast was given because of allergy, abnormal renal function, patient refusal or physician re quest. Oral contrast was given. All CT scans are performed using dose optimization technique as appropriate and may include automated exposure control or mA/KV adjustment according to patient size. FINDINGS: Moderate right pleural effusion is present not fully assessed. No left pleural effusion. M ild cardiomegaly present without pericardial thickening or effusion. Liver has a subtle nodularity to the capsule. No focal liver lesion. Liver is generous in size. Cirrh osis or other hepatic parenchymal disease process is possible. No splenomegaly or focal splenic proce ss. No acute pancreatic process. Gallbladder is not identified. No biliary tree dilatation. No hydronephrosis or suspicious renal mass. No significant adrenal finding. Isodense renal masses an d pyelonephritis cannot be excluded in the absence of IV contrast. The urinary bladder is without sig nificant finding. Uterus is absent. Ovaries are absent or atrophic. Gastric bypass surgical changes are present. No acute gastric finding seen. Distal body and antrum of the stomach shows some prominence of the mccormack. Assessment is limited in the absence of oral and IV contrast. No dilated large or small bowel. No appendicitis. Patient has a prominent fluid retention p attern in the subcutaneous fatty tissues. This pattern is minimal in the peritoneal and retroperitone al fat. Minimal non drainable ascites near the liver capsule. No free air or pneumatosis. No hernia, mass or bulky lymphadenopathy. No suspicious bony findings. IMPRESSION: No bowel obstruction, free air or surgically emergent finding. Moderate right pleural effusion not fully assessed. Patient has a small amount of non drainable ascit es and a prominent fluid retention pattern in the subcutaneous fat. No acute finding. Isodense masses and pyelonephritis are not excluded. Mccormack of the gastric antrum are prominent. This is difficult to assess in the absence of oral and IV contrast. Antritis or nonspecific gastroenteritis would be possible. Liver is prominent in size with subtle nodularity to the capsule. Cirrhosis or other diffuse hepatic parenchymal disease would be consideration. Full assessment is limited is the absence of IV contrast.
[2017-12-27] MEDS ORDERED: HYDRALAZINE HCL 20 MG/ML VIAL ONE (17:05)
--- NOTE | 2017-12-27 17:18 | EDPHYS ---
Physician Documentation [facility] Name: Christy Priest Age: 62 yrs Sex: Female : 1955 Arrival Date: 12/27/2017 Time: 13:55 Bed 6 Private MD: ED Physician Jose De Jesus Mercado HPI: 12/27 16:24 This 62 yrs old Female presents to ER via Ambulatory with complaints of kb Abdominal Pain, Urinary Problem. 16:24 The patient complains of pain in the left flank. The pain does not radiate. Onset: The kb symptoms/episode began/occurred yesterday. Modifying factors: The symptoms are alleviated by nothing. the symptoms are aggravated by palpation/percussion. Associated signs and symptoms: Pertinent positives: hematuria, Pertinent negatives: diarrhea, dizziness, dysuria, fever, urinary frequency, headache, nausea, pain radiating to the lower extremities, vomiting. Severity of pain: At its worst the pain was moderate in the emergency department the pain is unchanged. The patient has experienced similar episodes in the past. The patient has not recently seen a physician. Historical: - Allergies: 14:01 Augmentin; aj 14:01 basil; aj 14:01 Morphine; aj 14:01 Nitroglycerin; aj 14:01 Tramadol HCl; aj 14:01 Trazodone; aj 14:01 Vancomycin; aj - PMHx: 14:01 CHF; COPD; Diabetes - IDDM; High Cholesterol; Hypertension; triple bypass; uterine aj cancer; 14:03 ESRD; aj - PSHx: 14:01 CABG; aj - Immunization history:: Adult Immunizations up to date. - Social history:: Smoking status: Patient uses tobacco products, denies chronic smoking, but will smoke occasionally. - Ebola Screening: : Patient negative for fever greater than or equal to 101.5 degrees Fahrenheit, and additional compatible Ebola Virus Disease symptoms Patient denies exposure to infectious person Patient denies travel to an Ebola-affected area in the 21 days before illness onset No symptoms or risks identified at this time. ROS: 16:24 Constitutional: Negative for fever, chills, and weight loss, Cardiovascular: Negative kb for chest pain, palpitations, and edema, Respiratory: Negative for shortness of breath, cough, wheezing, and pleuritic chest pain, Abdomen/GI: Negative for abdominal pain, nausea, vomiting, diarrhea, and constipation, MS/Extremity: Negative for injury and deformity, Skin: Negative for injury, rash, and discoloration, Neuro: Negative for headache, weakness, numbness, tingling, and seizure. 16:24 Back: Positive for flank pain, on the left. 16:24 : Positive for flank pain, hematuria. Exam: 16:24 Constitutional: This is a well developed, well nourished patient who is awake, alert, kb and in no acute distress. Head/Face: Normocephalic, atraumatic. Chest/axilla: Normal chest wall appearance and motion. Nontender with no deformity. No lesions are appreciated. Cardiovascular: Regular rate and rhythm with a normal S1 and S2. No gallops, murmurs, or rubs. Normal PMI, no JVD. No pulse deficits. Respiratory: Lungs have equal breath sounds bilaterally, clear to auscultation and percussion. No rales, rhonchi or wheezes noted. No increased work of breathing, no retractions or nasal flaring. Skin: Warm, dry with normal turgor. Normal color with no rashes, no lesions, and no evidence of cellulitis. MS/ Extremity: Pulses equal, no cyanosis. Neurovascular intact. Full, normal range of motion. Neuro: Awake and alert, GCS 15, oriented to person, place, time, and situation. Cranial nerves II-XII grossly intact. Motor strength 5/5 in all extremities. Sensory grossly intact. Cerebellar exam normal. Normal gait. 16:24 Abdomen/GI: Inspection: abdomen appears normal, Bowel sounds: normal, in all quadrants, Palpation: soft, in all quadrants, mild abdominal tenderness, in the left upper quadrant and left lower quadrant. 16:24 Back: CVA tenderness, that is moderate, is noted on the left. Vital Signs: 14:01 BP 204 / 79; Pulse 83; Resp 19; Temp 97.3; Pulse Ox 95% on R/A; Weight 77.11 kg; Height aj 5 ft. 7 in. (170.18 cm); 14:33 BP 215 / 106; Pulse 82; Resp 18; Pulse Ox 96% on R/A; hj 15:26 BP 187 / 98; Pulse 82; Resp 18; Pulse Ox 96% on R/A; hj 16:09 BP 167 / 99; Pulse 84; Resp 18; Pulse Ox 96% on R/A; hj 16:58 BP 201 / 97; Pulse 85; Resp 18; Pulse Ox 97% on R/A; hj 17:15 BP 194 / 88; Pulse 70; Resp 18; Pulse Ox 96% on R/A; hj 17:24 BP 189 / 89; Pulse 74; Resp 18; Pulse Ox 97% on R/A; hj 14:01 Body Mass Index 26.63 (77.11 kg, 170.18 cm) aj MDM: 14:08 Patient medically screened. kb 16:28 Data reviewed: vital signs, nurses notes. Data interpreted: Pulse oximetry: on room air kb is 96 %. Interpretation: normal. 17:16 Counseling: I had a detailed discussion with the patient and/or guardian regarding: the kb historical points, exam findings, and any diagnostic results supporting the discharge/admit diagnosis, lab results, radiology results, the need for outpatient follow up, a family practitioner, nephrology, to return to the emergency department if symptoms worsen or persist or if there are any questions or concerns that arise at home. 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 . 12/27 14:11 Order name: Basic Metabolic Panel; Complete Time: 15:23 kb 12/27 14:11 Order name: CBC with Diff; Complete Time: 15:19 kb 12/27 14:11 Order name: Hepatic Function; Complete Time: 15:23 kb 12/27 14:11 Order name: Lipase; Complete Time: 15:23 kb 12/27 16:38 Order name: Urine Dipstick--Ancillary (enter results) eb 12/27 14:11 Order name: IV Saline Lock; Complete Time: 14:30 kb 12/27 14:11 Order name: Labs collected and sent; Complete Time: 14:30 kb 12/27 15:51 Order name: Abdomen ; Complete Time: 16:04 EDMS 12/27 14:11 Order name: Urine Dipstick-Ancillary (obtain specimen); Complete Time: 16:28 kb 12/27 16:20 Order name: Urine Dipstick-Ancillary (obtain specimen); Complete Time: 16:28 kb Administered Medications: 14:30 Drug: fentaNYL (PF) 50 mcg Route: IVP; Site: right antecubital; hj 15:25 Follow up: Response: No adverse reaction hj 15:25 Drug: cloNIDine 0.1 mg Route: PO; hj 15:29 Follow up: Response: No adverse reaction hj 16:56 Drug: hydrALAZINE 5 mg Route: IV; Rate: calculated rate; Site: right antecubital; hj 17:35 Follow up: IV Status: Completed infusion hj 17:05 Drug: fentaNYL (PF) 50 mcg Route: IVP; Site: right antecubital; hj 17:19 Follow up: Response: No adverse reaction; Pain is decreased hj Disposition: 17:58 Co-signature as Attending Physician, Jose De Jesus Mercado MD. Disposition: 12/27/17 17:18 Discharged to Home. Impression: Other abdominal pain - flank pain. - Condition is Stable. - Discharge Instructions: Flank Pain, Wcoq-oy-Jjbj. - Medication Reconciliation Form, Thank You Letter, Antibiotic Education, Prescription Opioid Use form. - Follow up: Emergency Department; When: As needed; Reason: Worsening of condition. Follow up: Private Physician; When: 2 - 3 days; Reason: Recheck today's complaints, Continuance of care, Re-evaluation by your physician. Signatures: Dispatcher [employer] [facility] Mallory Wilson, GROUP HOME PARAPROFESSIONAL-C GROUP HOME PARAPROFESSIONAL-Maria A Lebron RN RN aj Mickail, Joel, PA PA jmm Joaquin, Henry, RN RN hj Starr, Gregory, MD MD Corrections: (The following items were deleted from the chart) 15:51 14:12 Abdomen Pelvis W Con+CT.RAD.BRZ ordered. [facility] 17:50 17:18 12/27/2017 17:18 Discharged to Home. Impression: Other abdominal pain - flank hj pain. Condition is Stable. Forms are Medication Reconciliation Form, Thank You Letter, Antibiotic Education, Prescription Opioid Use. Follow up: Emergency Department; When: As needed; Reason: Worsening of condition. Follow up: Private Physician; When: 2 - 3 days; Reason: Recheck today's complaints, Continuance of care, Re-evaluation by your physician. kb
--- NOTE | 2017-12-27 17:18 | ER ---
Nurse's Notes [facility] Name: Christy Priest Age: 62 yrs Sex: Female : 1955 Arrival Date: 12/27/2017 Time: 13:55 Bed 6 Private MD: Diagnosis: Other abdominal pain-flank pain Presentation: 12/27 14:00 Presenting complaint: Patient states: Left flank pain since yesterday with blood in aj urine. Transition of care: patient was not received from another setting of care. Onset of symptoms was December 26, 2017. Risk Assessment: Do you want to hurt yourself or someone else? Patient reports no desire to harm self or others. Initial Sepsis Screen: Does the patient meet any 2 criteria? No. Patient's initial sepsis screen is negative. Does the patient have a suspected source of infection? No. Patient's initial sepsis screen is negative. Care prior to arrival: None. 14:00 Method Of Arrival: Ambulatory aj 14:00 Acuity: DENNY 2 aj Triage Assessment: 14:01 General: Appears in no apparent distress. uncomfortable, Behavior is calm, cooperative, aj appropriate for age. Pain: Complains of pain in posterior aspect of left lateral abdomen and anterior aspect of left lateral abdomen. Neuro: Level of Consciousness is awake, alert, obeys commands, Oriented to person, place, time, situation, Appropriate for age. Respiratory: Airway is patent Trachea midline Respiratory effort is even, unlabored, Respiratory pattern is regular, symmetrical. GI: Abdomen is non-distended, obese. : Reports pain in left flank(s), in lower back. Derm: Skin is intact, is healthy with good turgor, Skin is pink, warm \T\ dry. normal. Historical: - Allergies: 14:01 Augmentin; aj 14:01 basil; aj 14:01 Morphine; aj 14:01 Nitroglycerin; aj 14:01 Tramadol HCl; aj 14:01 Trazodone; aj 14:01 Vancomycin; aj - PMHx: 14:01 CHF; COPD; Diabetes - IDDM; High Cholesterol; Hypertension; triple bypass; uterine aj cancer; 14:03 ESRD; aj - PSHx: 14:01 CABG; aj - Immunization history:: Adult Immunizations up to date. - Social history:: Smoking status: Patient uses tobacco products, denies chronic smoking, but will smoke occasionally. - Ebola Screening: : Patient negative for fever greater than or equal to 101.5 degrees Fahrenheit, and additional compatible Ebola Virus Disease symptoms Patient denies exposure to infectious person Patient denies travel to an Ebola-affected area in the 21 days before illness onset No symptoms or risks identified at this time. Screenin:31 Abuse screen: Denies threats or abuse. Denies injuries from another. Nutritional hj screening: No deficits noted. Tuberculosis screening: No symptoms or risk factors identified. Fall Risk None identified. Assessment: 14:32 GI: Bowel sounds present X 4 quads. Abd is soft Abd is non tender. hj 14:32 General: Appears in no apparent distress. uncomfortable, Behavior is calm, cooperative, hj appropriate for age. Pain: Complains of pain in abdomen and anterior aspect of left lateral abdomen and posterior aspect of left lateral abdomen. Neuro: Level of Consciousness is awake, alert, obeys commands, Oriented to person, place, time, situation, Appropriate for age. Cardiovascular: Capillary refill < 3 seconds Patient's skin is warm and dry. Respiratory: Airway is patent Respiratory effort is even, unlabored, Respiratory pattern is regular, symmetrical. : No signs and/or symptoms were reported regarding the genitourinary system. EENT: No signs and/or symptoms were reported regarding the EENT system. Derm: No signs and/or symptoms reported regarding the dermatologic system. Musculoskeletal: No signs and/or symptoms reported regarding the musculoskeletal system. 15:26 Reassessment: Patient and/or family updated on plan of care and expected duration. Pain hj level reassessed. Patient is alert, oriented x 3, equal unlabored respirations, skin warm/dry/pink. awaiting results and POC;. 15:48 Reassessment: wheeled to CT;. hj 16:00 Reassessment: Patient and/or family updated on plan of care and expected duration. Pain hj level reassessed. Patient is alert, oriented x 3, equal unlabored respirations, skin warm/dry/pink. back from CT:. 16:09 Reassessment: Patient and/or family updated on plan of care and expected duration. Pain hj level reassessed. Patient is alert, oriented x 3, equal unlabored respirations, skin warm/dry/pink. assisted to the bathroom for urine sample;. 17:03 Reassessment: Patient and/or family updated on plan of care and expected duration. Pain hj level reassessed. Patient is alert, oriented x 3, equal unlabored respirations, skin warm/dry/pink. complaints of pain; provider notified;. 17:28 Reassessment: awaiting daughter for a ride;. hj Vital Signs: 14:01 BP 204 / 79; Pulse 83; Resp 19; Temp 97.3; Pulse Ox 95% on R/A; Weight 77.11 kg; Height aj 5 ft. 7 in. (170.18 cm); 14:33 BP 215 / 106; Pulse 82; Resp 18; Pulse Ox 96% on R/A; hj 15:26 BP 187 / 98; Pulse 82; Resp 18; Pulse Ox 96% on R/A; hj 16:09 BP 167 / 99; Pulse 84; Resp 18; Pulse Ox 96% on R/A; hj 16:58 BP 201 / 97; Pulse 85; Resp 18; Pulse Ox 97% on R/A; hj 17:15 BP 194 / 88; Pulse 70; Resp 18; Pulse Ox 96% on R/A; hj 17:24 BP 189 / 89; Pulse 74; Resp 18; Pulse Ox 97% on R/A; hj 14:01 Body Mass Index 26.63 (77.11 kg, 170.18 cm) ED Course: 13:55 Patient arrived in ED. mr 14:01 Triage completed. aj 14:01 Arm band placed on left wrist. Patient placed in an exam room. aj 14:04 Mukesh Gonsales RN is Primary Nurse. hj 14:08 [facility]C [facility]. kb 14:08 Jose De Jesus Mercado MD is Attending Physician. kb 14:20 Initial lab(s) drawn, by wa, sent to lab. Inserted saline lock: 22 gauge in right hj antecubital area, using aseptic technique. Blood collected. 14:32 Patient has correct armband on for positive identification. Placed in gown. Bed in low hj position. Call light in reach. Side rails up X 1. Adult w/ patient. 15:47 CT completed. Patient tolerated procedure well. Patient moved to CT via stretcher. Patient moved back from CT. 15:51 Abdomen In Process Unspecified. EDMS 17:27 No provider procedures requiring assistance completed. IV discontinued, intact, hj bleeding controlled, No redness/swelling at site. Pressure dressing applied. Administered Medications: 14:30 Drug: fentaNYL (PF) 50 mcg Route: IVP; Site: right antecubital; hj 15:25 Follow up: Response: No adverse reaction hj 15:25 Drug: cloNIDine 0.1 mg Route: PO; hj 15:29 Follow up: Response: No adverse reaction hj 16:56 Drug: hydrALAZINE 5 mg Route: IV; Rate: calculated rate; Site: right antecubital; hj 17:35 Follow up: IV Status: Completed infusion hj 17:05 Drug: fentaNYL (PF) 50 mcg Route: IVP; Site: right antecubital; hj 17:19 Follow up: Response: No adverse reaction; Pain is decreased hj Outcome: 17:18 Discharge ordered by . brandi 17:28 Discharged to home ambulatory. hj 17:28 Condition: stable 17:28 Discharge instructions given to patient, Instructed on discharge instructions, follow up and referral plans. Demonstrated understanding of instructions, follow-up care. 17:50 Patient left the ED. Signatures: Dispatcher [employer] EDMallory Woodson, ENVIRONMENTAL ENGINEERING TECHNICIAN-C ENVIRONMENTAL ENGINEERING TECHNICIAN-CkMaria A Vance, RN RN Jovita Lal Ervin eh Joaquin, Henry, RN RN marguerite
[2017-12-27 18:21] VITALS: TEMP 97.3
[2017-12-27 18:29] VITALS: BP 189/89; O2SAT 97
[2017-12-27 19:37] LABS: Urine Blood TRACE (NEG); Urine Glucose TRACE (NEG); Urine Protein 3+ (NEG)
== END 2017-12-27 17:50 | disposition home or self-care (01) ==
LOC: ER 13:52
DX: R10.9 Unspecified abdominal pain (principal); E11.22 Type 2 diabetes mellitus with diabetic chronic kidney disease; I12.0 Hypertensive chronic kidney disease with stage 5 chronic kidney disease or end stage renal disease; N18.6 End stage renal disease; Z95.1 Presence of aortocoronary bypass graft; Z88.1 Allergy status to other antibiotic agents; Z88.3 Allergy status to other anti-infective agents; Z88.5 Allergy status to narcotic agent; Z88.8 Allergy status to other drugs, medicaments and biological substances
CPT/HCPCS: 36415; 74176; 80048; 80076; 81003; 83690; 85025; 96365; 96375; 99284; J0360; J3010

== ENCOUNTER 2018-03-16 00:30 | Observation (INO) | payer MEDICAID ==
--- OUTSIDE RECORDS SUMMARY | 2018-03-16 00:39 | XMS REPORT ---
:1955 [facility] Address [address] [place] [address] Care Team Providers Name Role Phone CORINA DREW PRABHJOT Unavailable Unavailable LALITA BHAGAT Unavailable Unavailable ALFONSO [...] 220 mg/dL 70-110 TESTED AT [facility] [address] [facility] cozp=5230) [facility] [address] BASIC METABOLIC [id number] 15:47:00 Test Item Value Reference Range Comments SODIUM (BEAKER) (test 135 meq/L 136-145 vjxx=759) POTASSIUM (BEAKER) (test 4.8 meq/L 3.5-5.1 qryo=039) CHLORIDE (BEAKER) (test 102 meq/L 98-107 svaw=815) CO2 (BEAKER) (test 25 meq/L 22-29 hoog=422) BLOOD UREA NITROGEN 51 mg/dL 7-21 (BEAKER) (test auvb=889) CREATININE (BEAKER) (test 1.99 mg/dL 0.57-1.25 nkcd=595) GLUCOSE RANDOM (BEAKER) 201 mg/dL 70-105 (test hgnq=216) CALCIUM (BEAKER) (test 8.8 mg/dL 8.4-10.2 wdod=233) EGFR (BEAKER) (test 25 mL/min/1.73 sq m ESTIMATED GFR IS NOT zzux=2110) ACCURATE CREATININE CLEARANCE IN PREDICTING GLOMERULAR FILTRATION RATE. ESTIMATED GFR IS NOT APPLICABLE FOR DIALYSIS PATIENTS. POCT-GLUCOSE [id number] 11:30:00 Test Item Value Reference Range Comments POC-GLUCOSE METER (BEAKER) 268 mg/dL 70-110 TESTED AT [facility] [address] [facility] (test oang=6146) [facility] [address] POCT-GLUCOSE [id number] 07:08:00 Test Item Value Reference Range Comments POC-GLUCOSE METER (BEAKER) 208 mg/dL 70-110 TESTED AT [facility] [address] [facility] (test azai=8823) [facility] [address] CALCIUM, [id number] 06:47:00 Test Item Value Reference Range Comments CALCIUM IONIZED (BEAKER) (test nolb=130) 1.11 mmol/L 1.12-1.27 PH, BLOOD (BEAKER) (test puet=4530) 7.40 BASIC METABOLIC [id number] 06:40:00 Test Item Value Reference Range Comments SODIUM (BEAKER) (test 134 meq/L 136-145 mmel=544) POTASSIUM (BEAKER) (test 4.9 meq/L 3.5-5.1 kbtl=790) CHLORIDE (BEAKER) (test 103 meq/L 98-107 cafm=579) CO2 (BEAKER) (test 24 meq/L 22-29 vewc=240) BLOOD UREA NITROGEN 53 mg/dL 7-21 (BEAKER) (test xkws=568) CREATININE (BEAKER) (test 2.02 mg/dL 0.57-1.25 tgea=635) GLUCOSE RANDOM (BEAKER) 186 mg/dL 70-105 (test oxof=197) CALCIUM (BEAKER) (test 9.1 mg/dL 8.4-10.2 zuia=830) EGFR (BEAKER) (test 25 mL/min/1.73 sq m ESTIMATED GFR IS NOT igoj=9331) ACCURATE CREATININE CLEARANCE IN PREDICTING GLOMERULAR FILTRATION RATE. ESTIMATED GFR IS NOT APPLICABLE FOR DIALYSIS PATIENTS. [id number] 06:33:00 Test Item Value Reference Range Comments PHOSPHORUS (BEAKER) (test zdka=398) 5.1 mg/dL 2.3-4.7 [id number] 06:33:00 Test Item Value Reference Range Comments MAGNESIUM (BEAKER) (test vtbb=193) 2.0 mg/dL 1.6-2.6 LACTIC ACID, VENOUS, WHOLE [id number] 06:02:00 Test Item Value Reference Range Comments LACTATE BLOOD VENOUS (2) (BEAKER) (test 0.8 mmol/L 0.5-2.2 fosf=6873) Effective 08/02/2015: Units/Reference Range ChangeNew: 0.5-2.2 mmol/L Previous: 5 -20 mg/dLCBC W/PLT COUNT & AUTO [id number] 05:54:00 Test Item Value Reference Range Comments WHITE BLOOD CELL COUNT (BEAKER) (test gaxb=347) 7.1 K/ L 3.5-10.5 RED BLOOD CELL COUNT (BEAKER) (test nvmc=753) 3.68 M/ L 3.93-5.22 HEMOGLOBIN (BEAKER) (test jzrz=423) 9.0 GM/DL 11.2-15.7 HEMATOCRIT (BEAKER) (test hcqu=776) 29.6 % 34.1-44.9 MEAN CORPUSCULAR VOLUME (BEAKER) (test jkfn=304) 80.4 fL 79.4-94.8 MEAN CORPUSCULAR HEMOGLOBIN (BEAKER) (test 24.5 pg 25.6-32.2 fjej=191) MEAN CORPUSCULAR HEMOGLOBIN CONC (BEAKER) (test 30.4 GM/DL 32.2-35.5 angn=034) RED CELL DISTRIBUTION WIDTH (BEAKER) (test 16.5 % 11.7-14.4 fpat=928) PLATELET COUNT (BEAKER) (test llrt=357) 215 K/CU MM 150-450 MEAN PLATELET VOLUME (BEAKER) (test jfjp=628) 9.5 fL 9.4-12.3 NUCLEATED RED BLOOD CELLS (BEAKER) (test 0 /100 WBC 0-0 vuyl=908) NEUTROPHILS RELATIVE PERCENT (BEAKER) (test 42 % ohdh=543) LYMPHOCYTES RELATIVE PERCENT (BEAKER) (test 46 % xzdq=968) MONOCYTES RELATIVE PERCENT (BEAKER) (test 6 % htsw=355) EOSINOPHILS RELATIVE PERCENT (BEAKER) (test 5 % xeep=174) BASOPHILS RELATIVE PERCENT (BEAKER) (test 1 % twpf=720) NEUTROPHILS ABSOLUTE COUNT (BEAKER) (test 2.96 K/ L 1.56-6.13 qefm=858) LYMPHOCYTES ABSOLUTE COUNT (BEAKER) (test 3.27 K/ L 1.18-3.74 wftu=848) MONOCYTES ABSOLUTE COUNT (BEAKER) (test 0.41 K/ L 0.24-0.36 hbpy=951) EOSINOPHILS ABSOLUTE COUNT (BEAKER) (test 0.34 K/ L 0.04-0.36 decv=283) BASOPHILS ABSOLUTE COUNT (BEAKER) (test 0.08 K/ L 0.01-0.08 agfw=158) IMMATURE GRANULOCYTES-RELATIVE PERCENT (BEAKER) 0 % 0-1 (test ujfv=4381) POCT-GLUCOSE [id number] 21:30:00 Test Item Value Reference Range Comments POC-GLUCOSE METER (BEAKER) 248 mg/dL 70-110 TESTED AT [address] (test lqvp=1719) [facility] [address] RAD, [id number] 21:22:00Reason for exam:->fall, tailbone painFINAL REPORT RAD, [...] MDReport Verified Date/Time: 2017 21:22:03 Reading Location: [address] Reading Room POCT- GLUCOSE [id number] 17:37:00 Test Item Value Reference Range Comments POC-GLUCOSE METER (BEAKER) 222 mg/dL 70-110 TESTED AT [address] (test nfqp=2634) [facility] [address] POCT-GLUCOSE [id number] 13:55:00 Test Item Value Reference Range Comments POC-GLUCOSE METER (BEAKER) 194 mg/dL 70-110 TESTED AT [facility] [address] [facility] (test scvp=8968) [facility] [address] POCT-GLUCOSE [id number] 12:34:00 Test Item Value Reference Range Comments POC-GLUCOSE METER (BEAKER) 229 mg/dL 70-110 TESTED AT [address] (test bfvn=4777) [facility] [address] POCT-GLUCOSE [id number] 08:00:00 Test Item Value Reference Range Comments POC-GLUCOSE METER (BEAKER) 159 mg/dL 70-110 TESTED AT [address] (test cdeh=2866) [facility] [address] CALCIUM, [id number] 06:00:00 Test Item Value Reference Range Comments CALCIUM IONIZED (BEAKER) (test ibso=400) 1.05 mmol/L 1.12-1.27 PH, BLOOD (BEAKER) (test hjpm=3673) 7.45 [id number] 05:59:00 Test Item Value Reference Range Comments PHOSPHORUS (BEAKER) (test pgqb=778) 4.8 mg/dL 2.3-4.7 [id number] 05:59:00 Test Item Value Reference Range Comments MAGNESIUM (BEAKER) (test iosc=521) 2.0 mg/dL 1.6-2.6 BASIC METABOLIC [id number] 05:59:00 Test Item Value Reference Range Comments SODIUM (BEAKER) (test 134 meq/L 136-145 eaba=541) POTASSIUM (BEAKER) (test 4.4 meq/L 3.5-5.1 rcjb=000) CHLORIDE (BEAKER) (test 103 meq/L 98-107 snbo=078) CO2 (BEAKER) (test 23 meq/L 22-29 exvi=202) BLOOD UREA NITROGEN 49 mg/dL 7-21 (BEAKER) (test jvwd=146) CREATININE (BEAKER) (test 1.69 mg/dL 0.57-1.25 jdci=615) GLUCOSE RANDOM (BEAKER) 138 mg/dL 70-105 (test rpgm=331) CALCIUM (BEAKER) (test 8.7 mg/dL 8.4-10.2 mjpb=245) EGFR (BEAKER) (test 31 mL/min/1.73 sq m ESTIMATED GFR IS NOT tskh=1233) ACCURATE CREATININE CLEARANCE IN PREDICTING GLOMERULAR FILTRATION RATE. ESTIMATED GFR IS NOT APPLICABLE FOR DIALYSIS PATIENTS. CREATINE KINASE (CK)2017-09-04 05:59:00 Test Item Value Reference Range Comments CREATINE KINASE TOTAL (BEAKER) (test ssrh=762) 45 U/L 29-200 CBC W/PLT COUNT & AUTO [id number] 05:32:00 Test Item Value Reference Range Comments WHITE BLOOD CELL COUNT (BEAKER) (test sxdi=587) 6.1 K/ L 3.5-10.5 RED BLOOD CELL COUNT (BEAKER) (test iulk=177) 3.69 M/ L 3.93-5.22 HEMOGLOBIN (BEAKER) (test bopv=027) 8.8 GM/DL 11.2-15.7 HEMATOCRIT (BEAKER) (test eskk=292) 29.3 % 34.1-44.9 MEAN CORPUSCULAR VOLUME (BEAKER) (test znbf=422) 79.4 fL 79.4-94.8 MEAN CORPUSCULAR HEMOGLOBIN (BEAKER) (test 23.8 pg 25.6-32.2 lzwp=070) MEAN CORPUSCULAR HEMOGLOBIN CONC (BEAKER) (test 30.0 GM/DL 32.2-35.5 zqbb=833) RED CELL DISTRIBUTION WIDTH (BEAKER) (test 16.3 % 11.7-14.4 okut=343) PLATELET COUNT (BEAKER) (test swiz=908) 219 K/CU MM 150-450 MEAN PLATELET VOLUME (BEAKER) (test kitg=087) 9.4 fL 9.4-12.3 NUCLEATED RED BLOOD CELLS (BEAKER) (test 0 /100 WBC 0-0 clku=093) NEUTROPHILS RELATIVE PERCENT (BEAKER) (test 44 % oavr=091) LYMPHOCYTES RELATIVE PERCENT (BEAKER) (test 43 % bxya=410) MONOCYTES RELATIVE PERCENT (BEAKER) (test 6 % elye=713) EOSINOPHILS RELATIVE PERCENT (BEAKER) (test 6 % ezqc=082) BASOPHILS RELATIVE PERCENT (BEAKER) (test 1 % lala=983) NEUTROPHILS ABSOLUTE COUNT (BEAKER) (test 2.67 K/ L 1.56-6.13 neez=206) LYMPHOCYTES ABSOLUTE COUNT (BEAKER) (test 2.66 K/ L 1.18-3.74 wnrb=768) MONOCYTES ABSOLUTE COUNT (BEAKER) (test 0.38 K/ L 0.24-0.36 onyw=720) EOSINOPHILS ABSOLUTE COUNT (BEAKER) (test 0.37 K/ L 0.04-0.36 hrpu=195) BASOPHILS ABSOLUTE COUNT (BEAKER) (test 0.05 K/ L 0.01-0.08 nugj=797) IMMATURE GRANULOCYTES-RELATIVE PERCENT (BEAKER) 0 % 0-1 (test fmva=5196) POCT-GLUCOSE [id number] 20:36:00 Test Item Value Reference Range Comments POC-GLUCOSE METER (BEAKER) 211 mg/dL 70-110 TESTED AT [address] (test dvvw=3245) [place] [id number] CREATININE, RANDOM [id number] 19:55:00 Test Item Value Reference Range Comments CREATININE URINE (BEAKER) (test xdkj=637) 16.1 mg/dL Reference Range: No NormalsPROTEIN, RANDOM [id number] 19:55:00 Test Item Value Reference Range Comments PROTEIN, URINE (BEAKER) (test fbdy=7384) 102 mg/dL 0-14 POCT-GLUCOSE [id number] 18:04:00 Test Item Value Reference Range Comments POC-GLUCOSE METER (BEAKER) 177 mg/dL 70-110 TESTED AT [address] (test ruxy=5990) [place] [id number] POCT-GLUCOSE [id number] 11:59:00 Test Item Value Reference Range Comments POC-GLUCOSE METER (BEAKER) 244 mg/dL 70-110 TESTED AT [address] (test qttl=0350) [place] [id number] POCT-GLUCOSE [id number] 07:53:00 Test Item Value Reference Range Comments POC-GLUCOSE METER (BEAKER) 160 mg/dL 70-110 TESTED AT [address] (test vjxs=1737) [place] [id number] BASIC METABOLIC [id number] 05:29:00 Test Item Value Reference Range Comments SODIUM (BEAKER) (test 136 meq/L 136-145 dpsr=058) POTASSIUM (BEAKER) (test 4.5 meq/L 3.5-5.1 smxk=953) CHLORIDE (BEAKER) (test 105 meq/L 98-107 xqkv=859) CO2 (BEAKER) (test 24 meq/L 22-29 fhyf=398) BLOOD UREA NITROGEN 51 mg/dL 7-21 (BEAKER) (test fsel=313) CREATININE (BEAKER) (test 1.76 mg/dL 0.57-1.25 ppqa=124) GLUCOSE RANDOM (BEAKER) 149 mg/dL 70-105 (test bqsk=176) CALCIUM (BEAKER) (test 8.9 mg/dL 8.4-10.2 syjf=628) EGFR (BEAKER) (test 29 mL/min/1.73 sq m ESTIMATED GFR IS NOT cxcf=1110) ACCURATE CREATININE CLEARANCE IN PREDICTING GLOMERULAR FILTRATION RATE. ESTIMATED GFR IS NOT APPLICABLE FOR DIALYSIS PATIENTS. [id number] 05:21:00 Test Item Value Reference Range Comments MAGNESIUM (BEAKER) (test irvb=790) 2.1 mg/dL 1.6-2.6 HEPATIC FUNCTION [id number] 05:21:00 Test Item Value Reference Range Comments TOTAL PROTEIN (BEAKER) (test qysk=471) 6.8 gm/dL 6.0-8.3 ALBUMIN (BEAKER) (test xdoz=6053) 2.9 g/dL 3.5-5.0 BILIRUBIN TOTAL (BEAKER) (test ruyj=990) 0.5 mg/dL 0.2-1.2 BILIRUBIN DIRECT (BEAKER) (test swpo=972) 0.2 mg/dL 0.1-0.5 ALKALINE PHOSPHATASE (BEAKER) (test fdyu=904) 173 U/L 40-150 AST (SGOT) (BEAKER) (test avtp=522) 25 U/L 5-34 ALT (SGPT) (BEAKER) (test qkcg=390) 23 U/L 6-55 TROPONIN [id number] 05:18:00 Test Item Value Reference Range Comments TROPONIN I (BEAKER) (test hxaf=273) 0.05 ng/mL 0.00-0.03 Troponin I (TnI) levels [...] and persistent tachyarrhythmia.CBC W/PLT COUNT & AUTO [id number] 04:59:00 Test Item Value Reference Range Comments WHITE BLOOD CELL COUNT (BEAKER) (test adsc=315) 6.9 K/ L 3.5-10.5 RED BLOOD CELL COUNT (BEAKER) (test ukaa=619) 3.75 M/ L 3.93-5.22 HEMOGLOBIN (BEAKER) (test thqu=798) 8.9 GM/DL 11.2-15.7 HEMATOCRIT (BEAKER) (test ruxx=540) 29.7 % 34.1-44.9 MEAN CORPUSCULAR VOLUME (BEAKER) (test lbpf=736) 79.2 fL 79.4-94.8 MEAN CORPUSCULAR HEMOGLOBIN (BEAKER) (test 23.7 pg 25.6-32.2 gwio=450) MEAN CORPUSCULAR HEMOGLOBIN CONC (BEAKER) (test 30.0 GM/DL 32.2-35.5 pqbp=046) RED CELL DISTRIBUTION WIDTH (BEAKER) (test 16.2 % 11.7-14.4 epdn=418) PLATELET COUNT (BEAKER) (test jjjt=237) 240 K/CU MM 150-450 MEAN PLATELET VOLUME (BEAKER) (test qmnn=920) 9.6 fL 9.4-12.3 NUCLEATED RED BLOOD CELLS (BEAKER) (test 0 /100 WBC 0-0 wmyc=382) NEUTROPHILS RELATIVE PERCENT (BEAKER) (test 48 % evtn=593) LYMPHOCYTES RELATIVE PERCENT (BEAKER) (test 40 % ogwz=132) MONOCYTES RELATIVE PERCENT (BEAKER) (test 6 % odmu=064) EOSINOPHILS RELATIVE PERCENT (BEAKER) (test 5 % ipbv=494) BASOPHILS RELATIVE PERCENT (BEAKER) (test 1 % wtbf=216) NEUTROPHILS ABSOLUTE COUNT (BEAKER) (test 3.32 K/ L 1.56-6.13 uijc=679) LYMPHOCYTES ABSOLUTE COUNT (BEAKER) (test 2.76 K/ L 1.18-3.74 kdcu=173) MONOCYTES ABSOLUTE COUNT (BEAKER) (test 0.39 K/ L 0.24-0.36 cjgz=471) EOSINOPHILS ABSOLUTE COUNT (BEAKER) (test 0.36 K/ L 0.04-0.36 eabe=048) BASOPHILS ABSOLUTE COUNT (BEAKER) (test 0.06 K/ L 0.01-0.08 ciuy=624) IMMATURE GRANULOCYTES-RELATIVE PERCENT (BEAKER) 0 % 0-1 (test scor=1767) TROPONIN [id number] 23:40:00 Test Item Value Reference Range Comments TROPONIN I (BEAKER) (test kpqn=526) 0.04 ng/mL 0.00-0.03 Troponin I (TnI) levels [...] acidosis, acute neurological disease, and persistent tachyarrhythmia.POCT-GLUCOSE [id number] 22:51:00 Test Item Value Reference Range Comments POC-GLUCOSE METER (BEAKER) 214 mg/dL 70-110 TESTED AT [address] (test ktrv=6447) [facility] [address] RAD, CHEST, 1 VIEW, NON [id number] 21:42:00Reason for exam:->CHEST PAINShould this be performed at the bedside?->YesFINAL REPORT RAD, CHEST, 1 VIEW, NON DEPT INDICATION: CHEST PAIN COMPARISON: Chest x -ray 4 weeks ago TECHNIQUE: Single frontal view of the chest. IMPRESSION: Cardiomegaly.Mild pulmonary interstitial edema with a small right-sided effusion.No acute osseous abnormality. Signed: Dario Abraham MDReport Verified Date/Time: 09/02/2017 21:42:11 Reading Location: [address] Transitional Reading Room CREATININE, RANDOM [id number] 21:10:00 Test Item Value Reference Range Comments CREATININE URINE (BEAKER) (test qikz=002) 35.5 mg/dL Reference Range: No NormalsSODIUM, RANDOM [id number] 21:10:00 Test Item Value Reference Range Comments SODIUM URINE (BEAKER) (test pgul=373) 80 meq/L Reference Range: No NormalsURINALYSIS W/ [id number] 20:59:00 Test Item Value Reference Range Comments COLOR (BEAKER) (test xpbo=479) Light Yellow CLARITY (BEAKER) (test ogrk=375) Clear SPECIFIC GRAVITY UA (BEAKER) (test bmsp=313) 1.008 1.001-1.035 PH UA (BEAKER) (test izfb=198) 6.5 5.0-8.0 PROTEIN UA (BEAKER) (test xcmd=257) 200 mg/dL Negative GLUCOSE UA (BEAKER) (test lvzn=067) 70 mg/dL Negative KETONES UA (BEAKER) (test slyp=417) Negative Negative BILIRUBIN UA (BEAKER) (test vrap=869) Negative Negative BLOOD UA (BEAKER) (test jlgn=861) Negative Negative NITRITE UA (BEAKER) (test qdqi=503) Negative Negative LEUKOCYTE ESTERASE UA (BEAKER) (test aghi=682) Negative Negative UROBILINOGEN UA (BEAKER) (test uzig=908) 0.2 mg/dL 0.2-1.0 RBC UA (BEAKER) (test kiku=854) < /HPF WBC UA (BEAKER) (test iyoy=581) 2 /HPF BACTERIA (BEAKER) (test agtq=225) Occasional MUCUS (BEAKER) (test ettc=7870) Rare SQUAMOUS EPITHELIAL (BEAKER) (test twfm=344) 2 /HPF HYALINE CASTS (BEAKER) (test oylh=376) 7 /LPF SOURCE(BEAKER) (test kdue=6370) BASIC METABOLIC [id number] 16:49:00 Test Item Value Reference Range Comments SODIUM (BEAKER) (test 134 meq/L 136-145 uhfn=412) POTASSIUM (BEAKER) (test 4.8 meq/L 3.5-5.1 hykr=677) CHLORIDE (BEAKER) (test 101 meq/L 98-107 rqur=233) CO2 (BEAKER) (test 26 meq/L 22-29 dxet=167) BLOOD UREA NITROGEN 53 mg/dL 7-21 (BEAKER) (test daid=894) CREATININE (BEAKER) (test 2.04 mg/dL 0.57-1.25 mnwu=316) GLUCOSE RANDOM (BEAKER) 267 mg/dL 70-105 (test yzff=493) CALCIUM (BEAKER) (test 9.1 mg/dL 8.4-10.2 ofno=828) EGFR (BEAKER) (test 25 mL/min/1.73 sq m ESTIMATED GFR IS NOT tlme=6979) ACCURATE CREATININE CLEARANCE IN PREDICTING GLOMERULAR FILTRATION RATE. ESTIMATED GFR IS NOT APPLICABLE FOR DIALYSIS PATIENTS. [id number] 16:38:00 Test Item Value Reference Range Comments PROTIME (BEAKER) (test xkgi=655) 14.4 seconds 11.7-14.7 INR (BEAKER) (test fgwf=302) 1.1 <=5.9 PARTIAL THROMBOPLASTIN TIME (BEAKER) (test 31.0 seconds 22.5-36.0 gggn=953) RECOMMENDED COUMADIN/WARFARIN INR THERAPY RANGESSTANDARD DOSE: 2.0 - 3.0 Includes: PROPHYLAXIS forvenous thrombosis, systemic embolization; TREATMENT for venous thrombosis and/or pulmonary embolus.HIGH RISK: Target INR is 2.5-3.5 for patients with mechanical heart valves.CBC W/PLT COUNT & AUTO [id number] 16:26:00 Test Item Value Reference Range Comments WHITE BLOOD CELL COUNT (BEAKER) (test bbmz=680) 6.3 K/ L 3.5-10.5 RED BLOOD CELL COUNT (BEAKER) (test rvgp=218) 4.22 M/ L 3.93-5.22 HEMOGLOBIN (BEAKER) (test pfjg=309) 10.1 GM/DL 11.2-15.7 HEMATOCRIT (BEAKER) (test vlby=220) 33.4 % 34.1-44.9 MEAN CORPUSCULAR VOLUME (BEAKER) (test nlmf=059) 79.1 fL 79.4-94.8 MEAN CORPUSCULAR HEMOGLOBIN (BEAKER) (test 23.9 pg 25.6-32.2 oeru=500) MEAN CORPUSCULAR HEMOGLOBIN CONC (BEAKER) (test 30.2 GM/DL 32.2-35.5 ncyr=209) RED CELL DISTRIBUTION WIDTH (BEAKER) (test 16.1 % 11.7-14.4 ougw=200) PLATELET COUNT (BEAKER) (test epdn=631) 252 K/CU MM 150-450 MEAN PLATELET VOLUME (BEAKER) (test ueoo=849) 9.5 fL 9.4-12.3 NUCLEATED RED BLOOD CELLS (BEAKER) (test 0 /100 WBC 0-0 cncz=287) NEUTROPHILS RELATIVE PERCENT (BEAKER) (test 49 % tyqb=753) LYMPHOCYTES RELATIVE PERCENT (BEAKER) (test 38 % cnbx=587) MONOCYTES RELATIVE PERCENT (BEAKER) (test 6 % tczc=382) EOSINOPHILS RELATIVE PERCENT (BEAKER) (test 5 % wnsc=701) BASOPHILS RELATIVE PERCENT (BEAKER) (test 1 % vyyv=512) NEUTROPHILS ABSOLUTE COUNT (BEAKER) (test 3.08 K/ L 1.56-6.13 lvhx=717) LYMPHOCYTES ABSOLUTE COUNT (BEAKER) (test 2.42 K/ L 1.18-3.74 qprk=396) MONOCYTES ABSOLUTE COUNT (BEAKER) (test 0.40 K/ L 0.24-0.36 ctuo=525) EOSINOPHILS ABSOLUTE COUNT (BEAKER) (test 0.33 K/ L 0.04-0.36 chps=882) BASOPHILS ABSOLUTE COUNT (BEAKER) (test 0.07 K/ L 0.01-0.08 wtej=070) IMMATURE GRANULOCYTES-RELATIVE PERCENT (BEAKER) 0 % 0-1 (test sprh=5262) B-TYPE NATRIURETIC FACTOR (BNP)2017-09-02 13:47:00 Test Item Value Reference Range Comments B-TYPE NATRIURETIC PEPTIDE (BEAKER) (test 1942 pg/mL 0-100 gkhb=243) BASIC METABOLIC [id number] 13:43:00 Test Item Value Reference Range Comments SODIUM (BEAKER) (test 134 meq/L 136-145 nawr=867) POTASSIUM (BEAKER) (test 5.2 meq/L 3.5-5.1 ujly=251) CHLORIDE (BEAKER) (test 101 meq/L 98-107 nesk=864) CO2 (BEAKER) (test 25 meq/L 22-29 iggd=749) BLOOD UREA NITROGEN 55 mg/dL 7-21 (BEAKER) (test gkym=588) CREATININE (BEAKER) (test 2.09 mg/dL 0.57-1.25 uexr=844) GLUCOSE RANDOM (BEAKER) 317 mg/dL 70-105 (test kwnw=449) CALCIUM (BEAKER) (test 9.2 mg/dL 8.4-10.2 anfk=722) EGFR (BEAKER) (test 24 mL/min/1.73 sq m ESTIMATED GFR IS NOT hnkk=8912) ACCURATE CREATININE CLEARANCE IN PREDICTING GLOMERULAR FILTRATION RATE. ESTIMATED GFR IS NOT APPLICABLE FOR DIALYSIS PATIENTS. POCT-GLUCOSE [id number] 12:44:00 Test Item Value Reference Range Comments POC-GLUCOSE METER (BEAKER) 283 mg/dL 70-110 TESTED AT [facility] [address] [facility] (test galc=6685) [facility] [address] CALCIUM, [id number] 07:03:00 Test Item Value Reference Range Comments CALCIUM IONIZED (BEAKER) (test ttcn=168) 1.02 mmol/L 1.12-1.27 PH, BLOOD (BEAKER) (test xssj=4241) 7.43 [id number] 05:28:00 Test Item Value Reference Range Comments PHOSPHORUS (BEAKER) (test guiy=438) 3.3 mg/dL 2.3-4.7 [id number] 05:28:00 Test Item Value Reference Range Comments MAGNESIUM (BEAKER) (test fqdi=688) 1.5 mg/dL 1.6-2.6 BASIC METABOLIC [id number] 05:28:00 Test Item Value Reference Range Comments SODIUM (BEAKER) (test 135 meq/L 136-145 xmao=802) POTASSIUM (BEAKER) (test 3.9 meq/L 3.5-5.1 uxmp=442) CHLORIDE (BEAKER) (test 101 meq/L 98-107 vsdw=159) CO2 (BEAKER) (test 27 meq/L 22-29 gotz=416) BLOOD UREA NITROGEN 35 mg/dL 7-21 (BEAKER) (test hvot=463) CREATININE (BEAKER) (test 1.37 mg/dL 0.57-1.25 hcrd=943) GLUCOSE RANDOM (BEAKER) 145 mg/dL 70-105 (test asiu=601) CALCIUM (BEAKER) (test 8.3 mg/dL 8.4-10.2 fahs=185) EGFR (BEAKER) (test 39 mL/min/1.73 sq m ESTIMATED GFR IS NOT arsg=5794) ACCURATE CREATININE CLEARANCE IN PREDICTING GLOMERULAR FILTRATION RATE. ESTIMATED GFR IS NOT APPLICABLE FOR DIALYSIS PATIENTS. CBC W/PLT COUNT & AUTO [id number] 05:06:00 Test Item Value Reference Range Comments WHITE BLOOD CELL COUNT (BEAKER) (test lwjp=045) 9.3 K/ L 3.5-10.5 RED BLOOD CELL COUNT (BEAKER) (test ramq=256) 3.64 M/ L 3.93-5.22 HEMOGLOBIN (BEAKER) (test rczp=724) 8.7 GM/DL 11.2-15.7 HEMATOCRIT (BEAKER) (test tllj=291) 28.5 % 34.1-44.9 MEAN CORPUSCULAR VOLUME (BEAKER) (test znak=299) 78.3 fL 79.4-94.8 MEAN CORPUSCULAR HEMOGLOBIN (BEAKER) (test 23.9 pg 25.6-32.2 tpsc=966) MEAN CORPUSCULAR HEMOGLOBIN CONC (BEAKER) (test 30.5 GM/DL 32.2-35.5 lpfp=281) RED CELL DISTRIBUTION WIDTH (BEAKER) (test 14.6 % 11.7-14.4 skno=254) PLATELET COUNT (BEAKER) (test wtet=450) 336 K/CU MM 150-450 MEAN PLATELET VOLUME (BEAKER) (test gatb=597) 9.3 fL 9.4-12.3 NUCLEATED RED BLOOD CELLS (BEAKER) (test 0 /100 WBC 0-0 pran=772) NEUTROPHILS RELATIVE PERCENT (BEAKER) (test 50 % tadi=620) LYMPHOCYTES RELATIVE PERCENT (BEAKER) (test 40 % dvkp=677) MONOCYTES RELATIVE PERCENT (BEAKER) (test 6 % ldeo=212) EOSINOPHILS RELATIVE PERCENT (BEAKER) (test 3 % iezu=263) BASOPHILS RELATIVE PERCENT (BEAKER) (test 1 % kfes=455) NEUTROPHILS ABSOLUTE COUNT (BEAKER) (test 4.66 K/ L 1.56-6.13 guik=710) LYMPHOCYTES ABSOLUTE COUNT (BEAKER) (test 3.71 K/ L 1.18-3.74 sltq=236) MONOCYTES ABSOLUTE COUNT (BEAKER) (test 0.53 K/ L 0.24-0.36 wcqa=923) EOSINOPHILS ABSOLUTE COUNT (BEAKER) (test 0.31 K/ L 0.04-0.36 elrr=779) BASOPHILS ABSOLUTE COUNT (BEAKER) (test 0.07 K/ L 0.01-0.08 tihb=554) IMMATURE GRANULOCYTES-RELATIVE PERCENT (BEAKER) 1 % 0-1 (test acuu=6498) POCT-GLUCOSE [id number] 21:08:00 Test Item Value Reference Range Comments POC-GLUCOSE METER (BEAKER) 202 mg/dL 70-110 TESTED AT [address] (test vsce=0614) [facility] [address] POCT-GLUCOSE [id number] 16:50:00 Test Item Value Reference Range Comments POC-GLUCOSE METER (BEAKER) 287 mg/dL 70-110 TESTED AT [address] (test tusu=2199) [facility] [address] POCT-GLUCOSE [id number] 12:21:00 Test Item Value Reference Range Comments POC-GLUCOSE METER (BEAKER) 213 mg/dL 70-110 TESTED AT [address] (test qqkv=7558) [facility] [address] POCT-GLUCOSE [id number] 08:28:00 Test Item Value Reference Range Comments POC-GLUCOSE METER (BEAKER) 178 mg/dL 70-110 TESTED AT [address] (test cvaa=1829) [facility] [address] CALCIUM, [id number] 07:06:00 Test Item Value Reference Range Comments CALCIUM IONIZED (BEAKER) (test zuoj=206) 0.99 mmol/L 1.12-1.27 PH, BLOOD (BEAKER) (test kujc=1612) 7.42 [id number] 05:37:00 Test Item Value Reference Range Comments PHOSPHORUS (BEAKER) (test nzdy=111) 3.5 mg/dL 2.3-4.7 [id number] 05:37:00 Test Item Value Reference Range Comments MAGNESIUM (BEAKER) (test uwea=807) 1.6 mg/dL 1.6-2.6 BASIC METABOLIC [id number] 05:37:00 Test Item Value Reference Range Comments SODIUM (BEAKER) (test 133 meq/L 136-145 kbqe=453) POTASSIUM (BEAKER) (test 3.8 meq/L 3.5-5.1 ujrm=317) CHLORIDE (BEAKER) (test 101 meq/L 98-107 yprf=108) CO2 (BEAKER) (test 25 meq/L 22-29 tcog=817) BLOOD UREA NITROGEN 39 mg/dL 7-21 (BEAKER) (test qfbn=779) CREATININE (BEAKER) (test 1.42 mg/dL 0.57-1.25 kiph=843) GLUCOSE RANDOM (BEAKER) 200 mg/dL 70-105 (test aeng=888) CALCIUM (BEAKER) (test 8.0 mg/dL 8.4-10.2 flyg=963) EGFR (BEAKER) (test 37 mL/min/1.73 sq m ESTIMATED GFR IS NOT odhc=8953) ACCURATE CREATININE CLEARANCE IN PREDICTING GLOMERULAR FILTRATION RATE. ESTIMATED GFR IS NOT APPLICABLE FOR DIALYSIS PATIENTS. CBC W/PLT COUNT & AUTO [id number] 05:07:00 Test Item Value Reference Range Comments WHITE BLOOD CELL COUNT (BEAKER) (test xkxu=218) 9.2 K/ L 3.5-10.5 RED BLOOD CELL COUNT (BEAKER) (test ecpl=229) 3.69 M/ L 3.93-5.22 HEMOGLOBIN (BEAKER) (test fwgc=558) 8.8 GM/DL 11.2-15.7 HEMATOCRIT (BEAKER) (test thsr=941) 28.8 % 34.1-44.9 MEAN CORPUSCULAR VOLUME (BEAKER) (test hhxi=664) 78.0 fL 79.4-94.8 MEAN CORPUSCULAR HEMOGLOBIN (BEAKER) (test 23.8 pg 25.6-32.2 ejiq=187) MEAN CORPUSCULAR HEMOGLOBIN CONC (BEAKER) (test 30.6 GM/DL 32.2-35.5 ivkn=394) RED CELL DISTRIBUTION WIDTH (BEAKER) (test 14.6 % 11.7-14.4 vqzc=491) PLATELET COUNT (BEAKER) (test lvfv=581) 308 K/CU MM 150-450 MEAN PLATELET VOLUME (BEAKER) (test wgji=064) 9.3 fL 9.4-12.3 NUCLEATED RED BLOOD CELLS (BEAKER) (test 0 /100 WBC 0-0 hadh=050) NEUTROPHILS RELATIVE PERCENT (BEAKER) (test 61 % expp=249) LYMPHOCYTES RELATIVE PERCENT (BEAKER) (test 30 % wswc=095) MONOCYTES RELATIVE PERCENT (BEAKER) (test 5 % nqrz=827) EOSINOPHILS RELATIVE PERCENT (BEAKER) (test 3 % lsxs=473) BASOPHILS RELATIVE PERCENT (BEAKER) (test 0 % nxpt=364) NEUTROPHILS ABSOLUTE COUNT (BEAKER) (test 5.67 K/ L 1.56-6.13 zsni=901) LYMPHOCYTES ABSOLUTE COUNT (BEAKER) (test 2.72 K/ L 1.18-3.74 ifdp=349) MONOCYTES ABSOLUTE COUNT (BEAKER) (test 0.48 K/ L 0.24-0.36 huil=036) EOSINOPHILS ABSOLUTE COUNT (BEAKER) (test 0.26 K/ L 0.04-0.36 gugw=002) BASOPHILS ABSOLUTE COUNT (BEAKER) (test 0.04 K/ L 0.01-0.08 xacp=925) IMMATURE GRANULOCYTES-RELATIVE PERCENT (BEAKER) 1 % 0-1 (test atfg=8255) POCT-GLUCOSE [id number] 21:24:00 Test Item Value Reference Range Comments POC-GLUCOSE METER (BEAKER) 255 mg/dL 70-110 TESTED AT [address] (test ljzd=6616) [place] [id number] POCT-GLUCOSE [id number] 17:11:00 Test Item Value Reference Range Comments POC-GLUCOSE METER (BEAKER) 244 mg/dL 70-110 TESTED AT [address] (test oskk=2011) [facility] [address] POCT-GLUCOSE [id number] 11:54:00 Test Item Value Reference Range Comments POC-GLUCOSE METER (BEAKER) 209 mg/dL 70-110 TESTED AT [address] (test lxkt=8105) [place] [id number] POCT-GLUCOSE [id number] 08:15:00 Test Item Value Reference Range Comments POC-GLUCOSE METER (BEAKER) 132 mg/dL 70-110 TESTED AT [address] (test kacm=2329) [facility] [address] RAD, CHEST, 1 VIEW, NON [id number] 07:44:00Reason for exam:->edemaShould this be performed at the bedside?->YesFINAL REPORT Chest one view AP 08/07/2017 7:44 AM CLINICAL INDICATION: edema COMPARISON: 2017 IMPRESSION: Cardiomediastinal contours are stable. There is mild pulmonary edema,asymmetric to the right. There are trace bilateral pleural effusions, with bibasilar linear atelectasis. Sternotomy wires remain midline. Signed: Eder Cespedesort Verified Date/Time: 08/07/2017 07:44:22 Reading Location: [facility] Radiology Reading Room [id number] 05:30:00 Test Item Value Reference Range Comments FERRITIN (BEAKER) (test kudo=409) 87 ng/mL 5-275 CBC W/PLT COUNT & AUTO [id number] 05:21:00 Test Item Value Reference Range Comments WHITE BLOOD CELL COUNT (BEAKER) (test dfqe=563) 12.4 K/ L 3.5-10.5 RED BLOOD CELL COUNT (BEAKER) (test ktum=087) 3.78 M/ L 3.93-5.22 HEMOGLOBIN (BEAKER) (test lgry=486) 9.0 GM/DL 11.2-15.7 HEMATOCRIT (BEAKER) (test vteo=045) 29.3 % 34.1-44.9 MEAN CORPUSCULAR VOLUME (BEAKER) (test zeqd=619) 77.5 fL 79.4-94.8 MEAN CORPUSCULAR HEMOGLOBIN (BEAKER) (test 23.8 pg 25.6-32.2 nmet=446) MEAN CORPUSCULAR HEMOGLOBIN CONC (BEAKER) (test 30.7 GM/DL 32.2-35.5 oemq=079) RED CELL DISTRIBUTION WIDTH (BEAKER) (test 14.7 % 11.7-14.4 zhrv=705) PLATELET COUNT (BEAKER) (test uruj=658) 316 K/CU MM 150-450 MEAN PLATELET VOLUME (BEAKER) (test zuwl=740) 9.6 fL 9.4-12.3 NUCLEATED RED BLOOD CELLS (BEAKER) (test 0 /100 WBC 0-0 pies=298) NEUTROPHILS RELATIVE PERCENT (BEAKER) (test 72 % aikf=378) LYMPHOCYTES RELATIVE PERCENT (BEAKER) (test 20 % saep=210) MONOCYTES RELATIVE PERCENT (BEAKER) (test 5 % iiii=147) EOSINOPHILS RELATIVE PERCENT (BEAKER) (test 2 % lush=845) BASOPHILS RELATIVE PERCENT (BEAKER) (test 1 % yzwa=063) NEUTROPHILS ABSOLUTE COUNT (BEAKER) (test 8.93 K/ L 1.56-6.13 ijmu=740) LYMPHOCYTES ABSOLUTE COUNT (BEAKER) (test 2.51 K/ L 1.18-3.74 ksec=048) MONOCYTES ABSOLUTE COUNT (BEAKER) (test 0.58 K/ L 0.24-0.36 guwq=074) EOSINOPHILS ABSOLUTE COUNT (BEAKER) (test 0.23 K/ L 0.04-0.36 ykac=779) BASOPHILS ABSOLUTE COUNT (BEAKER) (test 0.07 K/ L 0.01-0.08 capr=323) IMMATURE GRANULOCYTES-RELATIVE PERCENT (BEAKER) 1 % 0-1 (test kdeh=1151) IRON, TIBC, % SAT. (WITHOUT FERRITIN)2017-08-07 05:16:00 Test Item Value Reference Range Comments IRON (BEAKER) (test mswy=718) 21 ug/dL 40-160 TOTAL IRON BINDING CAPACITY (BEAKER) (test 184 ug/dL 250-450 ticv=336) IRON % SATURATION (2) (BEAKER) (test zxkx=4007) 11 % 20-55 [id number] 05:11:00 Test Item Value Reference Range Comments PHOSPHORUS (BEAKER) (test dovz=477) 3.6 mg/dL 2.3-4.7 [id number] 05:11:00 Test Item Value Reference Range Comments MAGNESIUM (BEAKER) (test zjnf=833) 2.0 mg/dL 1.6-2.6 BASIC METABOLIC [id number] 05:11:00 Test Item Value Reference Range Comments SODIUM (BEAKER) (test 134 meq/L 136-145 ynlu=197) POTASSIUM (BEAKER) (test 3.9 meq/L 3.5-5.1 irbt=693) CHLORIDE (BEAKER) (test 102 meq/L 98-107 mrpf=147) CO2 (BEAKER) (test 23 meq/L 22-29 zvuf=252) BLOOD UREA NITROGEN 41 mg/dL 7-21 (BEAKER) (test wxiu=341) CREATININE (BEAKER) (test 1.63 mg/dL 0.57-1.25 mpqd=034) GLUCOSE RANDOM (BEAKER) 124 mg/dL 70-105 (test hhvy=181) CALCIUM (BEAKER) (test 8.3 mg/dL 8.4-10.2 sczc=423) EGFR (BEAKER) (test 32 mL/min/1.73 sq m ESTIMATED GFR IS NOT qrrz=8753) ACCURATE CREATININE CLEARANCE IN PREDICTING GLOMERULAR FILTRATION RATE. ESTIMATED GFR IS NOT APPLICABLE FOR DIALYSIS PATIENTS. B-TYPE NATRIURETIC FACTOR (BNP)2017-08-07 05:05:00 Test Item Value Reference Range Comments B-TYPE NATRIURETIC PEPTIDE (BEAKER) (test 1561 pg/mL 0-100 phbr=163) CALCIUM, [id number] 04:58:00 Test Item Value Reference Range Comments CALCIUM IONIZED (BEAKER) (test royk=732) 1.04 mmol/L 1.12-1.27 PH, BLOOD (BEAKER) (test beho=9308) 7.41 RETICULOCYTE [id number] 04:51:00 Test Item Value Reference Range Comments RETICULOCYTE COUNT PCT (BEAKER) (test tevh=704) 1.2 % 0.5-1.7 POCT-GLUCOSE [id number] 20:49:00 Test Item Value Reference Range Comments POC-GLUCOSE METER (BEAKER) 202 mg/dL 70-110 TESTED AT [facility] [address] [facility] (test jwyo=0149) [facility] [address] CREATININE, RANDOM [id number] 18:38:00 Test Item Value Reference Range Comments CREATININE URINE (BEAKER) (test uycj=783) 56.3 mg/dL Reference Range: No NormalsPROTEIN, RANDOM [id number] 18:38:00 Test Item Value Reference Range Comments PROTEIN, URINE (BEAKER) (test xwyl=4921) 189 mg/dL 0-14 URINALYSIS W/ [id number] 18:34:00 Test Item Value Reference Range Comments COLOR (BEAKER) (test geas=134) Light Yellow CLARITY (BEAKER) (test qqsw=072) Hazy SPECIFIC GRAVITY UA (BEAKER) (test cxcm=512) 1.008 1.001-1.035 PH UA (BEAKER) (test laoo=491) 5.5 5.0-8.0 PROTEIN UA (BEAKER) (test bpds=248) 100 mg/dL Negative GLUCOSE UA (BEAKER) (test lcoy=947) 30 mg/dL Negative KETONES UA (BEAKER) (test gsfz=955) Negative Negative BILIRUBIN UA (BEAKER) (test rgue=322) Negative Negative BLOOD UA (BEAKER) (test ivgy=659) Negative Negative NITRITE UA (BEAKER) (test nqux=728) Negative Negative LEUKOCYTE ESTERASE UA (BEAKER) (test aeck=704) Negative Negative UROBILINOGEN UA (BEAKER) (test wcvh=579) 0.2 mg/dL 0.2-1.0 RBC UA (BEAKER) (test ilcm=809) < /HPF WBC UA (BEAKER) (test dpvh=859) 2 /HPF BACTERIA (BEAKER) (test lnzh=933) Rare MUCUS (BEAKER) (test ifzy=7690) Rare SQUAMOUS EPITHELIAL (BEAKER) (test jjri=371) 8 /HPF SOURCE(BEAKER) (test ewdq=0626) Urine, Voided POCT-GLUCOSE [id number] 17:38:00 Test Item Value Reference Range Comments POC-GLUCOSE METER (BEAKER) 143 mg/dL 70-110 TESTED AT [address] (test rfpx=2101) [place] [address] POCT-GLUCOSE [id number] 12:30:00 Test Item Value Reference Range Comments POC-GLUCOSE METER (BEAKER) 218 mg/dL 70-110 TESTED AT [address] (test zzkc=4210) [place] [address] POCT-GLUCOSE [id number] 08:00:00 Test Item Value Reference Range Comments POC-GLUCOSE METER (BEAKER) 134 mg/dL 70-110 TESTED AT [address] (test ofzf=9704) [place] [address] CBC W/PLT COUNT & AUTO [id number] 04:23:00 Test Item Value Reference Range Comments WHITE BLOOD CELL COUNT (BEAKER) (test dmiq=184) 13.9 K/ L 3.5-10.5 RED BLOOD CELL COUNT (BEAKER) (test sjsv=961) 3.23 M/ L 3.93-5.22 HEMOGLOBIN (BEAKER) (test kmnd=925) 7.6 GM/DL 11.2-15.7 HEMATOCRIT (BEAKER) (test jbzs=888) 25.3 % 34.1-44.9 MEAN CORPUSCULAR VOLUME (BEAKER) (test auep=431) 78.3 fL 79.4-94.8 MEAN CORPUSCULAR HEMOGLOBIN (BEAKER) (test 23.5 pg 25.6-32.2 lyij=808) MEAN CORPUSCULAR HEMOGLOBIN CONC (BEAKER) (test 30.0 GM/DL 32.2-35.5 trng=071) RED CELL DISTRIBUTION WIDTH (BEAKER) (test 14.8 % 11.7-14.4 lasy=518) PLATELET COUNT (BEAKER) (test fdms=428) 284 K/CU MM 150-450 MEAN PLATELET VOLUME (BEAKER) (test jmit=497) 9.8 fL 9.4-12.3 NUCLEATED RED BLOOD CELLS (BEAKER) (test 0 /100 WBC 0-0 gaht=833) NEUTROPHILS RELATIVE PERCENT (BEAKER) (test 77 % wuqs=294) LYMPHOCYTES RELATIVE PERCENT (BEAKER) (test 16 % kadg=638) MONOCYTES RELATIVE PERCENT (BEAKER) (test 4 % bwhv=099) EOSINOPHILS RELATIVE PERCENT (BEAKER) (test 2 % feqv=521) BASOPHILS RELATIVE PERCENT (BEAKER) (test 1 % yvaq=797) NEUTROPHILS ABSOLUTE COUNT (BEAKER) (test 10.70 K/ L 1.56-6.13 nfpp=496) LYMPHOCYTES ABSOLUTE COUNT (BEAKER) (test 2.17 K/ L 1.18-3.74 ecfx=064) MONOCYTES ABSOLUTE COUNT (BEAKER) (test 0.57 K/ L 0.24-0.36 vazc=160) EOSINOPHILS ABSOLUTE COUNT (BEAKER) (test 0.30 K/ L 0.04-0.36 gytr=175) BASOPHILS ABSOLUTE COUNT (BEAKER) (test 0.08 K/ L 0.01-0.08 mawv=338) IMMATURE GRANULOCYTES-RELATIVE PERCENT (BEAKER) 1 % 0-1 (test jwel=3802) BASIC METABOLIC [id number] 04:13:00 Test Item Value Reference Range Comments SODIUM (BEAKER) (test 134 meq/L 136-145 argd=652) POTASSIUM (BEAKER) (test 4.6 meq/L 3.5-5.1 aedi=053) CHLORIDE (BEAKER) (test 103 meq/L 98-107 wvrq=465) CO2 (BEAKER) (test 23 meq/L 22-29 dojr=241) BLOOD UREA NITROGEN 43 mg/dL 7-21 (BEAKER) (test dlrq=950) CREATININE (BEAKER) (test 1.79 mg/dL 0.57-1.25 ajth=382) GLUCOSE RANDOM (BEAKER) 123 mg/dL 70-105 (test zgnj=999) CALCIUM (BEAKER) (test 8.1 mg/dL 8.4-10.2 adln=761) EGFR (BEAKER) (test 29 mL/min/1.73 sq m ESTIMATED GFR IS NOT upzs=8306) ACCURATE CREATININE CLEARANCE IN PREDICTING GLOMERULAR FILTRATION RATE. ESTIMATED GFR IS NOT APPLICABLE FOR DIALYSIS PATIENTS. [id number] 04:10:00 Test Item Value Reference Range Comments PHOSPHORUS (BEAKER) (test bogj=477) 4.9 mg/dL 2.3-4.7 [id number] 04:10:00 Test Item Value Reference Range Comments MAGNESIUM (BEAKER) (test yzox=203) 1.4 mg/dL 1.6-2.6 [id number] 04:08:00 Test Item Value Reference Range Comments FIBRINOGEN LEVEL (BEAKER) (test bffj=758) 548 mg/dl 225-434 [id number] 04:08:00 Test Item Value Reference Range Comments PARTIAL THROMBOPLASTIN TIME (BEAKER) (test 37.7 seconds 22.5-36.0 dsya=332) PROTHROMBIN [id number] 04:07:00 Test Item Value Reference Range Comments PROTIME (BEAKER) (test ftna=748) 16.2 seconds 11.7-14.7 INR (BEAKER) (test cryd=634) 1.3 <=5.9 RECOMMENDED COUMADIN/WARFARIN INR THERAPY RANGESSTANDARD DOSE: 2.0 - 3.0 Includes: PROPHYLAXIS forvenous thrombosis, systemic embolization; TREATMENT for venous thrombosis and/or pulmonary embolus.HIGH RISK: Target INR is 2.5-3.5 for patients with mechanical heart valves.[id number] 16:59:00 Test Item Value Reference Range Comments ACTIVATED CLOTTING TIME 219 sec TESTED AT [facility] [address] (BEAKER) (test zqfn=295) [facility] [address] BASIC METABOLIC [id number] 14:25:00 Test Item Value Reference Range Comments SODIUM (BEAKER) (test 134 meq/L 136-145 ykpx=285) POTASSIUM (BEAKER) (test 4.4 meq/L 3.5-5.1 wyjd=763) CHLORIDE (BEAKER) (test 103 meq/L 98-107 vsyf=631) CO2 (BEAKER) (test 22 meq/L 22-29 pygr=651) BLOOD UREA NITROGEN 46 mg/dL 7-21 (BEAKER) (test njog=697) CREATININE (BEAKER) (test 2.16 mg/dL 0.57-1.25 ziye=877) GLUCOSE RANDOM (BEAKER) 160 mg/dL 70-105 (test letk=886) CALCIUM (BEAKER) (test 7.8 mg/dL 8.4-10.2 xjwm=895) EGFR (BEAKER) (test 23 mL/min/1.73 sq m ESTIMATED GFR IS NOT oozm=1110) ACCURATE CREATININE CLEARANCE IN PREDICTING GLOMERULAR FILTRATION RATE. ESTIMATED GFR IS NOT APPLICABLE FOR DIALYSIS PATIENTS. POCT-GLUCOSE [id number] 13:21:00 Test Item Value Reference Range Comments POC-GLUCOSE METER (BEAKER) 170 mg/dL 70-110 TESTED AT [facility] [address] [place] [address] (test vxng=0777) [facility] [address] POTASSIUM-STAT [id number] 13:20:00 Test Item Value Reference Range Comments POTASSIUM (BEAKER) (test oguq=203) 4.2 meq/L 3.6-5.5 SODIUM NA-STAT [id number] 13:20:00 Test Item Value Reference Range Comments SODIUM (BEAKER) (test tofn=739) 133 meq/L 135-148 HGB/HCT (H&H) - STAT [id number] 12:34:00 Test Item Value Reference Range Comments HEMOGLOBIN (BEAKER) (test ilrs=224) 10.8 g/dL 12.0-15.0 HEMATOCRIT (BEAKER) (test ftzg=462) 32.0 % 36.0-45.0 POTASSIUM-STAT [id number] 08:15:00 Test Item Value Reference Range Comments POTASSIUM (BEAKER) (test nwku=708) 4.1 meq/L 3.6-5.5 BLOOD GAS, [id number] 08:15:00 Test Item Value Reference Range Comments PH ARTERIAL (BEAKER) (test mwgi=643) 7.36 7.35-7.45 PCO2 ARTERIAL (BEAKER) (test dlzn=172) 47 mmHg 35-45 PO2 ARTERIAL (BEAKER) (test hmff=295) 213 mmHg 80-90 O2 SATURATION ARTERIAL (BEAKER) (test fkle=849) 99.4 % 96.0-97.0 HCO3 ARTERIAL (BEAKER) (test qzik=726) 26 mmol/L 21-29 BASE EXCESS ARTERIAL (BEAKER) (test uuum=057) 0.3 mmol/L -2.0-3.0 PATIENT TEMPERATURE (BEAKER) (test nyoi=0820) 37.2 C FIO2 (BEAKER) (test uqwc=1899) 70.0 % SODIUM NA-STAT [id number] 08:15:00 Test Item Value Reference Range Comments SODIUM (BEAKER) (test ftyl=649) 130 meq/L 135-148 GLUCOSE-STAT [id number] 08:15:00 Test Item Value Reference Range Comments GLUCOSE RANDOM (BEAKER) (test nwrk=422) 172 mg/dL 70-110 HGB/HCT (H&H) - STAT [id number] 08:15:00 Test Item Value Reference Range Comments HEMOGLOBIN (BEAKER) (test lidl=113) 8.8 g/dL 12.0-15.0 HEMATOCRIT (BEAKER) (test bshe=995) 26.0 % 36.0-45.0 BASIC METABOLIC [id number] 07:37:00 Test Item Value Reference Range Comments SODIUM (BEAKER) (test 135 meq/L 136-145 wikd=199) POTASSIUM (BEAKER) (test 4.4 meq/L 3.5-5.1 nfaw=989) CHLORIDE (BEAKER) (test 100 meq/L 98-107 cctv=017) CO2 (BEAKER) (test 23 meq/L 22-29 nysf=710) BLOOD UREA NITROGEN 46 mg/dL 7-21 (BEAKER) (test khrk=502) CREATININE (BEAKER) (test 1.98 mg/dL 0.57-1.25 mwxs=477) GLUCOSE RANDOM (BEAKER) 188 mg/dL 70-105 (test kuit=866) CALCIUM (BEAKER) (test 8.9 mg/dL 8.4-10.2 jsbp=743) EGFR (BEAKER) (test 26 mL/min/1.73 sq m ESTIMATED GFR IS NOT aign=8901) ACCURATE CREATININE CLEARANCE IN PREDICTING GLOMERULAR FILTRATION RATE. ESTIMATED GFR IS NOT APPLICABLE FOR DIALYSIS PATIENTS. CBC W/PLT COUNT & AUTO [id number] 07:20:00 Test Item Value Reference Range Comments WHITE BLOOD CELL COUNT (BEAKER) (test casu=803) 20.2 K/ L 3.5-10.5 RED BLOOD CELL COUNT (BEAKER) (test jdxv=650) 3.86 M/ L 3.93-5.22 HEMOGLOBIN (BEAKER) (test atza=774) 9.1 GM/DL 11.2-15.7 HEMATOCRIT (BEAKER) (test xbxb=006) 29.4 % 34.1-44.9 MEAN CORPUSCULAR VOLUME (BEAKER) (test klkl=287) 76.2 fL 79.4-94.8 MEAN CORPUSCULAR HEMOGLOBIN (BEAKER) (test 23.6 pg 25.6-32.2 hmae=693) MEAN CORPUSCULAR HEMOGLOBIN CONC (BEAKER) (test 31.0 GM/DL 32.2-35.5 zjep=889) RED CELL DISTRIBUTION WIDTH (BEAKER) (test 14.9 % 11.7-14.4 dmry=283) PLATELET COUNT (BEAKER) (test fgyn=243) 343 K/CU MM 150-450 MEAN PLATELET VOLUME (BEAKER) (test twva=218) 9.5 fL 9.4-12.3 NUCLEATED RED BLOOD CELLS (BEAKER) (test 0 /100 WBC 0-0 tpvm=930) NEUTROPHILS RELATIVE PERCENT (BEAKER) (test 78 % bwml=162) LYMPHOCYTES RELATIVE PERCENT (BEAKER) (test 15 % soyc=325) MONOCYTES RELATIVE PERCENT (BEAKER) (test 5 % uluq=587) EOSINOPHILS RELATIVE PERCENT (BEAKER) (test 1 % tlpy=312) BASOPHILS RELATIVE PERCENT (BEAKER) (test 1 % uoti=519) NEUTROPHILS ABSOLUTE COUNT (BEAKER) (test 15.70 K/ L 1.56-6.13 qjut=268) LYMPHOCYTES ABSOLUTE COUNT (BEAKER) (test 2.99 K/ L 1.18-3.74 fjuw=762) MONOCYTES ABSOLUTE COUNT (BEAKER) (test 0.93 K/ L 0.24-0.36 dqbd=281) EOSINOPHILS ABSOLUTE COUNT (BEAKER) (test 0.20 K/ L 0.04-0.36 ljwk=301) BASOPHILS ABSOLUTE COUNT (BEAKER) (test 0.12 K/ L 0.01-0.08 oxsq=321) IMMATURE GRANULOCYTES-RELATIVE PERCENT (BEAKER) 1 % 0-1 (test ahmi=9591) POCT-GLUCOSE [id number] 07:03:00 Test Item Value Reference Range Comments POC-GLUCOSE METER (BEAKER) 186 mg/dL 70-110 TESTED AT [address] (test hejo=1212) [place] [address] B-TYPE NATRIURETIC FACTOR (BNP)2017-06-10 12:44:00 Test Item Value Reference Range Comments B-TYPE NATRIURETIC PEPTIDE (BEAKER) (test 1264 pg/mL 0-100 cvei=002) [id number] 12:36:00 Test Item Value Reference Range Comments MAGNESIUM (BEAKER) (test hmjj=984) 1.6 mg/dL 1.6-2.6 BASIC METABOLIC [id number] 12:36:00 Test Item Value Reference Range Comments SODIUM (BEAKER) (test 137 meq/L 136-145 qfdz=748) POTASSIUM (BEAKER) (test 5.4 meq/L 3.5-5.1 ihbg=359) CHLORIDE (BEAKER) (test 108 meq/L 98-107 bfkz=891) CO2 (BEAKER) (test 21 meq/L 22-29 iora=281) BLOOD UREA NITROGEN 39 mg/dL 7-21 (BEAKER) (test ojrj=384) CREATININE (BEAKER) (test 1.49 mg/dL 0.57-1.25 vgxp=938) GLUCOSE RANDOM (BEAKER) 219 mg/dL 70-105 (test lkae=059) CALCIUM (BEAKER) (test 8.5 mg/dL 8.4-10.2 illi=396) EGFR (BEAKER) (test 35 mL/min/1.73 sq m ESTIMATED GFR IS NOT nrcb=0565) ACCURATE CREATININE CLEARANCE IN PREDICTING GLOMERULAR FILTRATION RATE. ESTIMATED GFR IS NOT APPLICABLE FOR DIALYSIS PATIENTS. POCT-GLUCOSE [id number] 12:04:00 Test Item Value Reference Range Comments POC-GLUCOSE METER (BEAKER) 274 mg/dL 70-110 TESTED AT [address] (test boqr=6948) [place] [id number] POCT-GLUCOSE [id number] 07:21:00 Test Item Value Reference Range Comments POC-GLUCOSE METER (BEAKER) 137 mg/dL 70-110 TESTED AT [facility] [address] [facility] (test usgj=6906) [facility] [address] BASIC METABOLIC [id number] 05:10:00 Test Item Value Reference Range Comments SODIUM (BEAKER) (test 137 meq/L 136-145 nyok=713) POTASSIUM (BEAKER) (test 4.1 meq/L 3.5-5.1 kewc=338) CHLORIDE (BEAKER) (test 106 meq/L 98-107 oape=347) CO2 (BEAKER) (test 24 meq/L 22-29 ovvh=977) BLOOD UREA NITROGEN 42 mg/dL 7-21 (BEAKER) (test oulq=103) CREATININE (BEAKER) (test 1.64 mg/dL 0.57-1.25 qstn=852) GLUCOSE RANDOM (BEAKER) 162 mg/dL 70-105 (test buoq=655) CALCIUM (BEAKER) (test 8.1 mg/dL 8.4-10.2 zpfa=688) EGFR (BEAKER) (test 32 mL/min/1.73 sq m ESTIMATED GFR IS NOT mhjs=9475) ACCURATE CREATININE CLEARANCE IN PREDICTING GLOMERULAR FILTRATION RATE. ESTIMATED GFR IS NOT APPLICABLE FOR DIALYSIS PATIENTS. CBC (HEMOGRAM ONLY)2017-06-01 04:30:00 Test Item Value Reference Range Comments WHITE BLOOD CELL COUNT (BEAKER) (test rtsm=927) 6.4 K/ L 3.5-10.5 RED BLOOD CELL COUNT (BEAKER) (test amvb=855) 3.38 M/ L 3.93-5.22 HEMOGLOBIN (BEAKER) (test gdir=303) 8.7 GM/DL 11.2-15.7 HEMATOCRIT (BEAKER) (test cjob=065) 28.2 % 34.1-44.9 MEAN CORPUSCULAR VOLUME (BEAKER) (test brnx=037) 83.4 fL 79.4-94.8 MEAN CORPUSCULAR HEMOGLOBIN (BEAKER) (test 25.7 pg 25.6-32.2 itrv=140) MEAN CORPUSCULAR HEMOGLOBIN CONC (BEAKER) (test 30.9 GM/DL 32.2-35.5 xhno=078) RED CELL DISTRIBUTION WIDTH (BEAKER) (test 15.2 % 11.7-14.4 hqyf=960) PLATELET COUNT (BEAKER) (test zxsa=021) 320 K/CU MM 150-450 MEAN PLATELET VOLUME (BEAKER) (test pjjz=984) 9.5 fL 9.4-12.3 NUCLEATED RED BLOOD CELLS (BEAKER) (test 0 /100 WBC 0-0 ljna=284) POCT-GLUCOSE [id number] 21:23:00 Test Item Value Reference Range Comments POC-GLUCOSE METER (BEAKER) 240 mg/dL 70-110 TESTED AT [address] (test ltho=7539) [place] [id number] POCT-GLUCOSE [id number] 16:42:00 Test Item Value Reference Range Comments POC-GLUCOSE METER (BEAKER) 234 mg/dL 70-110 TESTED AT [address] (test gbyz=2385) [place] [id number] POCT-GLUCOSE [id number] 13:22:00 Test Item Value Reference Range Comments POC-GLUCOSE METER (BEAKER) 166 mg/dL 70-110 TESTED AT [address] (test cmhe=6522) [facility] [address] RAD, CHEST, 1 VIEW, NON [id number] 09:43:00Reason for exam:->s/p ACBShould this be performed [...] Ring Verified Date/Time: 05/31/2017 09: 43:30 ReadingLocation: [facility] B1 [id number] Ortho Consult Reading Room POCT-GLUCOSE [id number] 06:57:00 Test Item Value Reference Range Comments POC-GLUCOSE METER (BEAKER) 136 mg/dL 70-110 TESTED AT [facility] [address] (test tqjk=5255) [facility] [address] CALCIUM, [id number] 06:41:00 Test Item Value Reference Range Comments CALCIUM IONIZED (BEAKER) (test ewpw=999) 1.10 mmol/L 1.12-1.27 PH, BLOOD (BEAKER) (test cwrf=2718) 7.42 [id number] 06:17:00 Test Item Value Reference Range Comments PHOSPHORUS (BEAKER) (test igot=293) 3.3 mg/dL 2.3-4.7 [id number] 06:17:00 Test Item Value Reference Range Comments MAGNESIUM (BEAKER) (test bcfv=111) 1.8 mg/dL 1.6-2.6 BASIC METABOLIC [id number] 06:17:00 Test Item Value Reference Range Comments SODIUM (BEAKER) (test 131 meq/L 136-145 ppyt=125) POTASSIUM (BEAKER) (test 4.5 meq/L 3.5-5.1 asqz=808) CHLORIDE (BEAKER) (test 103 meq/L 98-107 carl=066) CO2 (BEAKER) (test 21 meq/L 22-29 atgj=689) BLOOD UREA NITROGEN 43 mg/dL 7-21 (BEAKER) (test ixha=488) CREATININE (BEAKER) (test 1.74 mg/dL 0.57-1.25 rghi=934) GLUCOSE RANDOM (BEAKER) 126 mg/dL 70-105 (test zxok=427) CALCIUM (BEAKER) (test 8.1 mg/dL 8.4-10.2 synh=610) EGFR (BEAKER) (test 30 mL/min/1.73 sq m ESTIMATED GFR IS NOT sscu=5522) ACCURATE CREATININE CLEARANCE IN PREDICTING GLOMERULAR FILTRATION RATE. ESTIMATED GFR IS NOT APPLICABLE FOR DIALYSIS PATIENTS. CBC W/PLT COUNT & AUTO [id number] 05:07:00 Test Item Value Reference Range Comments WHITE BLOOD CELL COUNT (BEAKER) (test qrii=853) 5.9 K/ L 3.5-10.5 RED BLOOD CELL COUNT (BEAKER) (test yduq=104) 3.16 M/ L 3.93-5.22 HEMOGLOBIN (BEAKER) (test luwb=729) 8.2 GM/DL 11.2-15.7 HEMATOCRIT (BEAKER) (test pqxw=629) 26.6 % 34.1-44.9 MEAN CORPUSCULAR VOLUME (BEAKER) (test jxkj=758) 84.2 fL 79.4-94.8 MEAN CORPUSCULAR HEMOGLOBIN (BEAKER) (test 25.9 pg 25.6-32.2 azun=110) MEAN CORPUSCULAR HEMOGLOBIN CONC (BEAKER) (test 30.8 GM/DL 32.2-35.5 lfyn=962) RED CELL DISTRIBUTION WIDTH (BEAKER) (test 15.1 % 11.7-14.4 mmuf=295) PLATELET COUNT (BEAKER) (test buqa=400) 320 K/CU MM 150-450 MEAN PLATELET VOLUME (BEAKER) (test rkle=527) 9.6 fL 9.4-12.3 NUCLEATED RED BLOOD CELLS (BEAKER) (test 0 /100 WBC 0-0 ferv=473) NEUTROPHILS RELATIVE PERCENT (BEAKER) (test 65 % ywtb=522) LYMPHOCYTES RELATIVE PERCENT (BEAKER) (test 24 % xwpd=513) MONOCYTES RELATIVE PERCENT (BEAKER) (test 8 % vhwj=877) EOSINOPHILS RELATIVE PERCENT (BEAKER) (test 2 % cxmd=833) BASOPHILS RELATIVE PERCENT (BEAKER) (test 1 % fxtv=551) NEUTROPHILS ABSOLUTE COUNT (BEAKER) (test 3.84 K/ L 1.56-6.13 lqqa=455) LYMPHOCYTES ABSOLUTE COUNT (BEAKER) (test 1.41 K/ L 1.18-3.74 oeww=078) MONOCYTES ABSOLUTE COUNT (BEAKER) (test 0.47 K/ L 0.24-0.36 wrpl=695) EOSINOPHILS ABSOLUTE COUNT (BEAKER) (test 0.11 K/ L 0.04-0.36 uprx=983) BASOPHILS ABSOLUTE COUNT (BEAKER) (test 0.05 K/ L 0.01-0.08 teby=313) IMMATURE GRANULOCYTES-RELATIVE PERCENT (BEAKER) 1 % 0-1 (test axkq=8261) POCT-GLUCOSE [id number] 20:56:00 Test Item Value Reference Range Comments POC-GLUCOSE METER (BEAKER) 196 mg/dL 70-110 TESTED AT [facility] [address] [facility] (test xdyn=0066) [facility] [address] POCT-GLUCOSE [id number] 16:42:00 Test Item Value Reference Range Comments POC-GLUCOSE METER (BEAKER) 196 mg/dL 70-110 TESTED AT [facility] [address] [facility] (test oogx=0977) [facility] [address] POCT-GLUCOSE [id number] 11:45:00 Test Item Value Reference Range Comments POC-GLUCOSE METER (BEAKER) 215 mg/dL 70-110 TESTED AT [place] [id number] [facility] (test enqt=1084) [facility] [address] RAD, CHEST, 1 VIEW, NON [id number] 11:15:00Reason for exam:->s/p ACBShould this be performed at the bedside?->YesFINAL REPORT Chest one view compared to May 28, 2017 Discussion: Airspace opacities are seen in both lower lung regions, probably atelectasis. Correlate clinically for infection. I could not exclude small effusions. No pneumothorax. Upper lungs clear. Signed: Jeannette Nava Verified Date/Time: 2017 11:15:07 Reading Location: [facility] Radiology Reading Room CALCIUM, [id number] 09:21:00 Test Item Value Reference Range Comments CALCIUM IONIZED (BEAKER) (test jggd=731) 1.11 mmol/L 1.12-1.27 PH, BLOOD (BEAKER) (test lblx=9355) 7.36 BASIC METABOLIC [id number] 07:37:00 Test Item Value Reference Range Comments SODIUM (BEAKER) (test 135 meq/L 136-145 lxph=506) POTASSIUM (BEAKER) (test 4.9 meq/L 3.5-5.1 xlji=610) CHLORIDE (BEAKER) (test 105 meq/L 98-107 dgro=249) CO2 (BEAKER) (test 25 meq/L 22-29 ambe=134) BLOOD UREA NITROGEN 44 mg/dL 7-21 (BEAKER) (test ctbx=901) CREATININE (BEAKER) (test 1.76 mg/dL 0.57-1.25 shcf=822) GLUCOSE RANDOM (BEAKER) 136 mg/dL 70-105 (test oxxl=838) CALCIUM (BEAKER) (test 8.2 mg/dL 8.4-10.2 bivt=606) EGFR (BEAKER) (test 29 mL/min/1.73 sq m ESTIMATED GFR IS NOT lfll=0899) ACCURATE CREATININE CLEARANCE IN PREDICTING GLOMERULAR FILTRATION RATE. ESTIMATED GFR IS NOT APPLICABLE FOR DIALYSIS PATIENTS. [id number] 07:28:00 Test Item Value Reference Range Comments PHOSPHORUS (BEAKER) (test giaj=767) 3.8 mg/dL 2.3-4.7 [id number] 07:28:00 Test Item Value Reference Range Comments MAGNESIUM (BEAKER) (test rgkw=158) 1.9 mg/dL 1.6-2.6 CBC W/PLT COUNT & AUTO [id number] 07:26:00 Test Item Value Reference Range Comments WHITE BLOOD CELL COUNT (BEAKER) (test ozeu=700) 6.3 K/ L 3.5-10.5 RED BLOOD CELL COUNT (BEAKER) (test yfki=918) 3.32 M/ L 3.93-5.22 HEMOGLOBIN (BEAKER) (test mmyz=857) 8.5 GM/DL 11.2-15.7 HEMATOCRIT (BEAKER) (test xdlk=867) 27.8 % 34.1-44.9 MEAN CORPUSCULAR VOLUME (BEAKER) (test dddl=166) 83.7 fL 79.4-94.8 MEAN CORPUSCULAR HEMOGLOBIN (BEAKER) (test 25.6 pg 25.6-32.2 hgpi=758) MEAN CORPUSCULAR HEMOGLOBIN CONC (BEAKER) (test 30.6 GM/DL 32.2-35.5 fdgj=000) RED CELL DISTRIBUTION WIDTH (BEAKER) (test 15.0 % 11.7-14.4 epdk=650) PLATELET COUNT (BEAKER) (test icnb=886) 336 K/CU MM 150-450 MEAN PLATELET VOLUME (BEAKER) (test vbmi=204) 9.8 fL 9.4-12.3 NUCLEATED RED BLOOD CELLS (BEAKER) (test 0 /100 WBC 0-0 oyxr=249) NEUTROPHILS RELATIVE PERCENT (BEAKER) (test 65 % rzdh=377) LYMPHOCYTES RELATIVE PERCENT (BEAKER) (test 24 % skmq=769) MONOCYTES RELATIVE PERCENT (BEAKER) (test 7 % wrxc=064) EOSINOPHILS RELATIVE PERCENT (BEAKER) (test 3 % uzqh=019) BASOPHILS RELATIVE PERCENT (BEAKER) (test 0 % akax=330) NEUTROPHILS ABSOLUTE COUNT (BEAKER) (test 4.13 K/ L 1.56-6.13 caec=501) LYMPHOCYTES ABSOLUTE COUNT (BEAKER) (test 1.50 K/ L 1.18-3.74 wwqp=921) MONOCYTES ABSOLUTE COUNT (BEAKER) (test 0.44 K/ L 0.24-0.36 ntwv=324) EOSINOPHILS ABSOLUTE COUNT (BEAKER) (test 0.20 K/ L 0.04-0.36 rcsn=672) BASOPHILS ABSOLUTE COUNT (BEAKER) (test 0.02 K/ L 0.01-0.08 hwix=045) IMMATURE GRANULOCYTES-RELATIVE PERCENT (BEAKER) 1 % 0-1 (test pojj=5632) POCT-GLUCOSE [id number] 07:21:00 Test Item Value Reference Range Comments POC-GLUCOSE METER (BEAKER) 146 mg/dL 70-110 TESTED AT [address] (test nhde=3608) [place] [address] POCT-GLUCOSE [id number] 22:02:00 Test Item Value Reference Range Comments POC-GLUCOSE METER (BEAKER) 201 mg/dL 70-110 TESTED AT [address] (test nscf=9307) [place] [address] POCT-GLUCOSE [id number] 18:27:00 Test Item Value Reference Range Comments POC-GLUCOSE METER (BEAKER) 240 mg/dL 70-110 TESTED AT [address] (test bodv=7561) [place] [id number] POCT-GLUCOSE [id number] 12:13:00 Test Item Value Reference Range Comments POC-GLUCOSE METER (BEAKER) 193 mg/dL 70-110 TESTED AT [address] (test dqwv=8056) [place] [id number] POCT-GLUCOSE [id number] 09:02:00 Test Item Value Reference Range Comments POC-GLUCOSE METER (BEAKER) 132 mg/dL 70-110 TESTED AT [address] (test kptm=2616) [place] [id number] CALCIUM, [id number] 05:42:00 Test Item Value Reference Range Comments CALCIUM IONIZED (BEAKER) (test clpz=754) 1.12 mmol/L 1.12-1.27 PH, BLOOD (BEAKER) (test axeb=3284) 7.34 COMPREHENSIVE METABOLIC [id number] 05:33:00 Test Item Value Reference Range Comments TOTAL PROTEIN (BEAKER) 5.9 gm/dL 6.0-8.3 (test cuqj=641) ALBUMIN (BEAKER) (test 2.7 g/dL 3.5-5.0 oemx=5149) ALKALINE PHOSPHATASE 130 U/L 40-150 (BEAKER) (test hqvb=145) BILIRUBIN TOTAL (BEAKER) 0.3 mg/dL 0.2-1.2 (test dbfb=170) SODIUM (BEAKER) (test 135 meq/L 136-145 laff=088) POTASSIUM (BEAKER) (test 4.7 meq/L 3.5-5.1 ymwv=948) CHLORIDE (BEAKER) (test 105 meq/L 98-107 xdky=131) CO2 (BEAKER) (test 24 meq/L 22-29 wlae=260) BLOOD UREA NITROGEN 42 mg/dL 7-21 (BEAKER) (test kncr=563) CREATININE (BEAKER) (test 1.78 mg/dL 0.57-1.25 uxey=336) GLUCOSE RANDOM (BEAKER) 129 mg/dL 70-105 (test nzlw=410) CALCIUM (BEAKER) (test 8.5 mg/dL 8.4-10.2 klgy=617) AST (SGOT) (BEAKER) (test 23 U/L 5-34 pquo=915) ALT (SGPT) (BEAKER) (test 15 U/L 6-55 fxlx=261) EGFR (BEAKER) (test 29 mL/min/1.73 sq m ESTIMATED GFR IS NOT coxc=2263) ACCURATE CREATININE CLEARANCE IN PREDICTING GLOMERULAR FILTRATION RATE. ESTIMATED GFR IS NOT APPLICABLE FOR DIALYSIS PATIENTS. [id number] 05:32:00 Test Item Value Reference Range Comments PHOSPHORUS (BEAKER) (test ajvm=804) 3.6 mg/dL 2.3-4.7 [id number] 05:32:00 Test Item Value Reference Range Comments MAGNESIUM (BEAKER) (test jgis=816) 2.2 mg/dL 1.6-2.6 CBC W/PLT COUNT & AUTO [id number] 05:01:00 Test Item Value Reference Range Comments WHITE BLOOD CELL COUNT (BEAKER) (test dhib=836) 6.4 K/ L 3.5-10.5 RED BLOOD CELL COUNT (BEAKER) (test siav=954) 3.43 M/ L 3.93-5.22 HEMOGLOBIN (BEAKER) (test hbmv=506) 8.9 GM/DL 11.2-15.7 HEMATOCRIT (BEAKER) (test gjqu=898) 28.9 % 34.1-44.9 MEAN CORPUSCULAR VOLUME (BEAKER) (test gewh=594) 84.3 fL 79.4-94.8 MEAN CORPUSCULAR HEMOGLOBIN (BEAKER) (test 25.9 pg 25.6-32.2 oxoz=937) MEAN CORPUSCULAR HEMOGLOBIN CONC (BEAKER) (test 30.8 GM/DL 32.2-35.5 wecz=487) RED CELL DISTRIBUTION WIDTH (BEAKER) (test 15.0 % 11.7-14.4 ydjp=351) PLATELET COUNT (BEAKER) (test kdko=850) 324 K/CU MM 150-450 MEAN PLATELET VOLUME (BEAKER) (test grve=285) 9.3 fL 9.4-12.3 NUCLEATED RED BLOOD CELLS (BEAKER) (test 0 /100 WBC 0-0 wbnc=286) NEUTROPHILS RELATIVE PERCENT (BEAKER) (test 62 % iftz=162) LYMPHOCYTES RELATIVE PERCENT (BEAKER) (test 25 % relf=613) MONOCYTES RELATIVE PERCENT (BEAKER) (test 8 % xrju=419) EOSINOPHILS RELATIVE PERCENT (BEAKER) (test 4 % xjmx=946) BASOPHILS RELATIVE PERCENT (BEAKER) (test 1 % ndss=366) NEUTROPHILS ABSOLUTE COUNT (BEAKER) (test 3.93 K/ L 1.56-6.13 pwwg=999) LYMPHOCYTES ABSOLUTE COUNT (BEAKER) (test 1.60 K/ L 1.18-3.74 qoaq=805) MONOCYTES ABSOLUTE COUNT (BEAKER) (test 0.51 K/ L 0.24-0.36 sowa=586) EOSINOPHILS ABSOLUTE COUNT (BEAKER) (test 0.25 K/ L 0.04-0.36 iteg=667) BASOPHILS ABSOLUTE COUNT (BEAKER) (test 0.03 K/ L 0.01-0.08 rvvp=324) IMMATURE GRANULOCYTES-RELATIVE PERCENT (BEAKER) 1 % 0-1 (test oued=7460) POCT-GLUCOSE [id number] 21:04:00 Test Item Value Reference Range Comments POC-GLUCOSE METER (BEAKER) 165 mg/dL 70-110 TESTED AT [address] (test yulr=7416) [place] [id number] POCT-GLUCOSE [id number] 17:30:00 Test Item Value Reference Range Comments POC-GLUCOSE METER (BEAKER) 236 mg/dL 70-110 TESTED AT [address] (test diwj=2428) [place] [address] RAD, CHEST, 1 VIEW, NON [id number] 13:53:00Reason for exam:->assess for ill-defined opacityShould this [...] Impression: No change. Signed: Luis Alberto Callaway Verified Date/Time: 05/28/2017 13:53:03 Reading Location: [address] Radiology Reading Room Electronically signed by: LUIS ALBERTO CALLAWAY M.D. on 01:53 PMPOCT-GLUCOSE [id number] 11:53:00 Test Item Value Reference Range Comments POC-GLUCOSE METER (BEAKER) 215 mg/dL 70-110 TESTED AT [address] (test lgia=1207) [facility] [address] POCT-GLUCOSE [id number] 08:32:00 Test Item Value Reference Range Comments POC-GLUCOSE METER (BEAKER) 168 mg/dL 70-110 TESTED AT [address] (test pfmt=0012) [place] [id number] CALCIUM, [id number] 05:44:00 Test Item Value Reference Range Comments CALCIUM IONIZED (BEAKER) (test fgrp=260) 1.09 mmol/L 1.12-1.27 PH, BLOOD (BEAKER) (test krkb=4546) 7.38 [id number] 05:44:00 Test Item Value Reference Range Comments PHOSPHORUS (BEAKER) (test hyhh=053) 3.5 mg/dL 2.3-4.7 [id number] 05:44:00 Test Item Value Reference Range Comments MAGNESIUM (BEAKER) (test orts=720) 1.9 mg/dL 1.6-2.6 BASIC METABOLIC [id number] 05:44:00 Test Item Value Reference Range Comments SODIUM (BEAKER) (test 137 meq/L 136-145 ihre=823) POTASSIUM (BEAKER) (test 4.5 meq/L 3.5-5.1 qfub=982) CHLORIDE (BEAKER) (test 108 meq/L 98-107 nwks=639) CO2 (BEAKER) (test 23 meq/L 22-29 ywqw=112) BLOOD UREA NITROGEN 41 mg/dL 7-21 (BEAKER) (test kmnp=619) CREATININE (BEAKER) (test 1.41 mg/dL 0.57-1.25 xvhl=821) GLUCOSE RANDOM (BEAKER) 113 mg/dL 70-105 (test xhgn=127) CALCIUM (BEAKER) (test 8.1 mg/dL 8.4-10.2 prir=812) EGFR (BEAKER) (test 38 mL/min/1.73 sq m ESTIMATED GFR IS NOT tepe=1142) ACCURATE CREATININE CLEARANCE IN PREDICTING GLOMERULAR FILTRATION RATE. ESTIMATED GFR IS NOT APPLICABLE FOR DIALYSIS PATIENTS. CBC W/PLT COUNT & AUTO [id number] 05:05:00 Test Item Value Reference Range Comments WHITE BLOOD CELL COUNT (BEAKER) (test nljz=278) 6.3 K/ L 3.5-10.5 RED BLOOD CELL COUNT (BEAKER) (test oysv=728) 3.40 M/ L 3.93-5.22 HEMOGLOBIN (BEAKER) (test yyzj=955) 8.8 GM/DL 11.2-15.7 HEMATOCRIT (BEAKER) (test lhos=915) 29.0 % 34.1-44.9 MEAN CORPUSCULAR VOLUME (BEAKER) (test otfs=967) 85.3 fL 79.4-94.8 MEAN CORPUSCULAR HEMOGLOBIN (BEAKER) (test 25.9 pg 25.6-32.2 ydlp=422) MEAN CORPUSCULAR HEMOGLOBIN CONC (BEAKER) (test 30.3 GM/DL 32.2-35.5 vgwj=614) RED CELL DISTRIBUTION WIDTH (BEAKER) (test 14.9 % 11.7-14.4 cbwu=063) PLATELET COUNT (BEAKER) (test ksrr=454) 282 K/CU MM 150-450 MEAN PLATELET VOLUME (BEAKER) (test iviv=877) 9.5 fL 9.4-12.3 NUCLEATED RED BLOOD CELLS (BEAKER) (test 0 /100 WBC 0-0 ihxa=178) NEUTROPHILS RELATIVE PERCENT (BEAKER) (test 59 % nxfa=055) LYMPHOCYTES RELATIVE PERCENT (BEAKER) (test 28 % gkwp=768) MONOCYTES RELATIVE PERCENT (BEAKER) (test 7 % fdsy=629) EOSINOPHILS RELATIVE PERCENT (BEAKER) (test 4 % damt=992) BASOPHILS RELATIVE PERCENT (BEAKER) (test 1 % bvvb=705) NEUTROPHILS ABSOLUTE COUNT (BEAKER) (test 3.75 K/ L 1.56-6.13 uwbq=657) LYMPHOCYTES ABSOLUTE COUNT (BEAKER) (test 1.80 K/ L 1.18-3.74 ihmx=896) MONOCYTES ABSOLUTE COUNT (BEAKER) (test 0.45 K/ L 0.24-0.36 qpaz=844) EOSINOPHILS ABSOLUTE COUNT (BEAKER) (test 0.25 K/ L 0.04-0.36 pdvl=844) BASOPHILS ABSOLUTE COUNT (BEAKER) (test 0.05 K/ L 0.01-0.08 bywt=016) IMMATURE GRANULOCYTES-RELATIVE PERCENT (BEAKER) 1 % 0-1 (test ojct=6599) POCT-GLUCOSE [id number] 21:03:00 Test Item Value Reference Range Comments POC-GLUCOSE METER (BEAKER) 173 mg/dL 70-110 TESTED AT [address] (test tpzb=7900) [place] [address] [id number] 18:15:00 Test Item Value Reference Range Comments ACTIVATED CLOTTING TIME 147 sec TESTED AT [address] (BEAKER) (test omcm=232) [place] [address] [id number] 18:15:00 Test Item Value Reference Range Comments ACTIVATED CLOTTING TIME 246 sec TESTED AT [place] [id number] [address] (BEAKER) (test lqhm=607) [facility] [address] POCT-GLUCOSE [id number] 12:39:00 Test Item Value Reference Range Comments POC-GLUCOSE METER (BEAKER) 219 mg/dL 70-110 TESTED AT [address] (test mvhj=4434) [facility] [address] RAD, CHEST, 1 VIEW, NON [id number] 10:11:00Reason for exam:->pl effusionShould this be performed at the bedside?->YesFINAL REPORT Chest one view compared to May 26 Discussion: There is cardiac prominence. Upper lungs are clear. Ill-defined basilar densities are similar probably atelectasis. No gross effusion or pneumothorax with bilateral chest tubes in place. Signed: Jeannette Nava Verified Date/Time: 2017 10:11:44 Reading Location: [facility] Radiology Reading Room POCT- GLUCOSE [id number] 07:05:00 Test Item Value Reference Range Comments POC-GLUCOSE METER (BEAKER) 167 mg/dL 70-110 TESTED AT [address] (test wyvd=4853) [facility] [address] CALCIUM, [id number] 06:20:00 Test Item Value Reference Range Comments CALCIUM IONIZED (BEAKER) (test ibss=425) 0.98 mmol/L 1.12-1.27 PH, BLOOD (BEAKER) (test aiel=0225) 7.50 [id number] 04:56:00 Test Item Value Reference Range Comments PHOSPHORUS (BEAKER) (test rqqu=581) 2.6 mg/dL 2.3-4.7 [id number] 04:56:00 Test Item Value Reference Range Comments MAGNESIUM (BEAKER) (test ivzt=206) 2.0 mg/dL 1.6-2.6 BASIC METABOLIC [id number] 04:56:00 Test Item Value Reference Range Comments SODIUM (BEAKER) (test 135 meq/L 136-145 jjue=646) POTASSIUM (BEAKER) (test 4.5 meq/L 3.5-5.1 fkfw=868) CHLORIDE (BEAKER) (test 105 meq/L 98-107 zcvd=166) CO2 (BEAKER) (test 22 meq/L 22-29 xmyu=026) BLOOD UREA NITROGEN 47 mg/dL 7-21 (BEAKER) (test waeu=515) CREATININE (BEAKER) (test 1.44 mg/dL 0.57-1.25 txpc=004) GLUCOSE RANDOM (BEAKER) 177 mg/dL 70-105 (test dfxl=788) CALCIUM (BEAKER) (test 8.0 mg/dL 8.4-10.2 bjza=191) EGFR (BEAKER) (test 37 mL/min/1.73 sq m ESTIMATED GFR IS NOT nxjs=9990) ACCURATE CREATININE CLEARANCE IN PREDICTING GLOMERULAR FILTRATION RATE. ESTIMATED GFR IS NOT APPLICABLE FOR DIALYSIS PATIENTS. CBC W/PLT COUNT & AUTO [id number] 04:36:00 Test Item Value Reference Range Comments WHITE BLOOD CELL COUNT (BEAKER) (test vbwi=352) 6.1 K/ L 3.5-10.5 RED BLOOD CELL COUNT (BEAKER) (test wlyx=224) 3.35 M/ L 3.93-5.22 HEMOGLOBIN (BEAKER) (test wkgg=295) 8.6 GM/DL 11.2-15.7 HEMATOCRIT (BEAKER) (test ctck=502) 28.0 % 34.1-44.9 MEAN CORPUSCULAR VOLUME (BEAKER) (test qtqp=838) 83.6 fL 79.4-94.8 MEAN CORPUSCULAR HEMOGLOBIN (BEAKER) (test 25.7 pg 25.6-32.2 pcqh=142) MEAN CORPUSCULAR HEMOGLOBIN CONC (BEAKER) (test 30.7 GM/DL 32.2-35.5 egxg=787) RED CELL DISTRIBUTION WIDTH (BEAKER) (test 14.7 % 11.7-14.4 fztg=356) PLATELET COUNT (BEAKER) (test uifp=214) 280 K/CU MM 150-450 MEAN PLATELET VOLUME (BEAKER) (test vrbn=739) 9.9 fL 9.4-12.3 NUCLEATED RED BLOOD CELLS (BEAKER) (test 0 /100 WBC 0-0 psbe=479) NEUTROPHILS RELATIVE PERCENT (BEAKER) (test 65 % bynk=968) LYMPHOCYTES RELATIVE PERCENT (BEAKER) (test 23 % stpl=138) MONOCYTES RELATIVE PERCENT (BEAKER) (test 7 % oevn=061) EOSINOPHILS RELATIVE PERCENT (BEAKER) (test 4 % jvaq=761) BASOPHILS RELATIVE PERCENT (BEAKER) (test 1 % qsgd=581) NEUTROPHILS ABSOLUTE COUNT (BEAKER) (test 3.97 K/ L 1.56-6.13 sqcs=154) LYMPHOCYTES ABSOLUTE COUNT (BEAKER) (test 1.41 K/ L 1.18-3.74 mdpw=055) MONOCYTES ABSOLUTE COUNT (BEAKER) (test 0.44 K/ L 0.24-0.36 kdcz=029) EOSINOPHILS ABSOLUTE COUNT (BEAKER) (test 0.22 K/ L 0.04-0.36 vzii=907) BASOPHILS ABSOLUTE COUNT (BEAKER) (test 0.05 K/ L 0.01-0.08 ipbt=033) IMMATURE GRANULOCYTES-RELATIVE PERCENT (BEAKER) 1 % 0-1 (test lkyh=4989) POCT-GLUCOSE [id number] 21:29:00 Test Item Value Reference Range Comments POC-GLUCOSE METER (BEAKER) 147 mg/dL 70-110 TESTED AT [address] (test femy=7521) [place] [address] POCT-GLUCOSE [id number] 17:51:00 Test Item Value Reference Range Comments POC-GLUCOSE METER (BEAKER) 224 mg/dL 70-110 TESTED AT [address] (test nmls=4392) [place] [address] POCT-GLUCOSE [id number] 13:53:00 Test Item Value Reference Range Comments POC-GLUCOSE METER (BEAKER) 182 mg/dL 70-110 TESTED AT [address] (test svis=9185) [place] [id number] RAD, CHEST, 1 VIEW, NON [id number] 08:44:00Reason for exam:->pl effusionShould this be performed [...] Verified Date/Time : 05/26/2017 08:44:25 Reading Location: [address] Radiology Reading Room POCT- GLUCOSE [id number] 07:43:00 Test Item Value Reference Range Comments POC-GLUCOSE METER (BEAKER) 113 mg/dL 70-110 TESTED AT [facility] [address] [facility] (test tmni=3683) [facility] [address] CALCIUM, [id number] 06:31:00 Test Item Value Reference Range Comments CALCIUM IONIZED (BEAKER) (test mejs=823) 1.07 mmol/L 1.12-1.27 PH, BLOOD (BEAKER) (test ksmp=6139) 7.38 [id number] 04:51:00 Test Item Value Reference Range Comments PHOSPHORUS (BEAKER) (test ciwi=839) 3.2 mg/dL 2.3-4.7 [id number] 04:51:00 Test Item Value Reference Range Comments MAGNESIUM (BEAKER) (test sndn=016) 2.1 mg/dL 1.6-2.6 BASIC METABOLIC [id number] 04:51:00 Test Item Value Reference Range Comments SODIUM (BEAKER) (test 139 meq/L 136-145 knln=877) POTASSIUM (BEAKER) (test 4.1 meq/L 3.5-5.1 bvjt=822) CHLORIDE (BEAKER) (test 106 meq/L 98-107 ixqx=725) CO2 (BEAKER) (test 24 meq/L 22-29 ugqm=005) BLOOD UREA NITROGEN 52 mg/dL 7-21 (BEAKER) (test rbol=356) CREATININE (BEAKER) (test 1.52 mg/dL 0.57-1.25 hrfd=288) GLUCOSE RANDOM (BEAKER) 108 mg/dL 70-105 (test fhtk=653) CALCIUM (BEAKER) (test 8.4 mg/dL 8.4-10.2 wnhk=971) EGFR (BEAKER) (test 35 mL/min/1.73 sq m ESTIMATED GFR IS NOT kisl=4074) ACCURATE CREATININE CLEARANCE IN PREDICTING GLOMERULAR FILTRATION RATE. ESTIMATED GFR IS NOT APPLICABLE FOR DIALYSIS PATIENTS. CBC W/PLT COUNT & AUTO [id number] 04:27:00 Test Item Value Reference Range Comments WHITE BLOOD CELL COUNT (BEAKER) (test izqr=928) 7.2 K/ L 3.5-10.5 RED BLOOD CELL COUNT (BEAKER) (test sfub=658) 3.53 M/ L 3.93-5.22 HEMOGLOBIN (BEAKER) (test tmfu=524) 9.1 GM/DL 11.2-15.7 HEMATOCRIT (BEAKER) (test mcte=886) 29.5 % 34.1-44.9 MEAN CORPUSCULAR VOLUME (BEAKER) (test zqts=974) 83.6 fL 79.4-94.8 MEAN CORPUSCULAR HEMOGLOBIN (BEAKER) (test 25.8 pg 25.6-32.2 wvib=175) MEAN CORPUSCULAR HEMOGLOBIN CONC (BEAKER) (test 30.8 GM/DL 32.2-35.5 hsmi=398) RED CELL DISTRIBUTION WIDTH (BEAKER) (test 14.6 % 11.7-14.4 bnsc=795) PLATELET COUNT (BEAKER) (test uwov=455) 296 K/CU MM 150-450 MEAN PLATELET VOLUME (BEAKER) (test pljq=395) 9.5 fL 9.4-12.3 NUCLEATED RED BLOOD CELLS (BEAKER) (test 0 /100 WBC 0-0 fvxq=491) NEUTROPHILS RELATIVE PERCENT (BEAKER) (test 67 % vqnu=618) LYMPHOCYTES RELATIVE PERCENT (BEAKER) (test 21 % zqbe=926) MONOCYTES RELATIVE PERCENT (BEAKER) (test 7 % anlw=511) EOSINOPHILS RELATIVE PERCENT (BEAKER) (test 4 % agak=598) BASOPHILS RELATIVE PERCENT (BEAKER) (test 1 % hlpi=237) NEUTROPHILS ABSOLUTE COUNT (BEAKER) (test 4.79 K/ L 1.56-6.13 auqt=865) LYMPHOCYTES ABSOLUTE COUNT (BEAKER) (test 1.49 K/ L 1.18-3.74 enuf=873) MONOCYTES ABSOLUTE COUNT (BEAKER) (test 0.50 K/ L 0.24-0.36 bsuf=800) EOSINOPHILS ABSOLUTE COUNT (BEAKER) (test 0.30 K/ L 0.04-0.36 prox=174) BASOPHILS ABSOLUTE COUNT (BEAKER) (test 0.05 K/ L 0.01-0.08 rgtk=802) IMMATURE GRANULOCYTES-RELATIVE PERCENT (BEAKER) 0 % 0-1 (test exkd=0790) POCT-GLUCOSE [id number] 23:48:00 Test Item Value Reference Range Comments POC-GLUCOSE METER (BEAKER) 123 mg/dL 70-110 TESTED AT [address] (test rptq=9982) [place] [address] POCT-GLUCOSE [id number] 16:46:00 Test Item Value Reference Range Comments POC-GLUCOSE METER (BEAKER) 178 mg/dL 70-110 TESTED AT [address] (test pcnx=0869) [place] [address] BASIC METABOLIC [id number] 05:53:00 Test Item Value Reference Range Comments SODIUM (BEAKER) (test 139 meq/L 136-145 fjwt=420) POTASSIUM (BEAKER) (test 3.9 meq/L 3.5-5.1 bphb=304) CHLORIDE (BEAKER) (test 106 meq/L 98-107 mqvy=089) CO2 (BEAKER) (test 23 meq/L 22-29 teqj=095) BLOOD UREA NITROGEN 62 mg/dL 7-21 (BEAKER) (test jgwi=229) CREATININE (BEAKER) (test 2.05 mg/dL 0.57-1.25 oeux=384) GLUCOSE RANDOM (BEAKER) 87 mg/dL 70-105 (test fako=485) CALCIUM (BEAKER) (test 7.9 mg/dL 8.4-10.2 xyki=567) EGFR (BEAKER) (test 25 mL/min/1.73 sq m ESTIMATED GFR IS NOT kkuu=2807) ACCURATE CREATININE CLEARANCE IN PREDICTING GLOMERULAR FILTRATION RATE. ESTIMATED GFR IS NOT APPLICABLE FOR DIALYSIS PATIENTS. [id number] 05:52:00 Test Item Value Reference Range Comments PHOSPHORUS (BEAKER) (test ikao=471) 4.2 mg/dL 2.3-4.7 [id number] 05:52:00 Test Item Value Reference Range Comments MAGNESIUM (BEAKER) (test lwvv=078) 2.3 mg/dL 1.6-2.6 CALCIUM, [id number] 05:27:00 Test Item Value Reference Range Comments CALCIUM IONIZED (BEAKER) (test ugzb=177) 1.12 mmol/L 1.12-1.27 PH, BLOOD (BEAKER) (test sijr=4929) 7.38 CBC W/PLT COUNT & AUTO [id number] 05:07:00 Test Item Value Reference Range Comments WHITE BLOOD CELL COUNT (BEAKER) (test pbvx=241) 8.4 K/ L 3.5-10.5 RED BLOOD CELL COUNT (BEAKER) (test vqey=527) 3.16 M/ L 3.93-5.22 HEMOGLOBIN (BEAKER) (test eicu=221) 8.2 GM/DL 11.2-15.7 HEMATOCRIT (BEAKER) (test suwo=295) 26.5 % 34.1-44.9 MEAN CORPUSCULAR VOLUME (BEAKER) (test qhwp=281) 83.9 fL 79.4-94.8 MEAN CORPUSCULAR HEMOGLOBIN (BEAKER) (test 25.9 pg 25.6-32.2 gdew=221) MEAN CORPUSCULAR HEMOGLOBIN CONC (BEAKER) (test 30.9 GM/DL 32.2-35.5 ibma=880) RED CELL DISTRIBUTION WIDTH (BEAKER) (test 14.6 % 11.7-14.4 desj=943) PLATELET COUNT (BEAKER) (test gyob=177) 256 K/CU MM 150-450 MEAN PLATELET VOLUME (BEAKER) (test xdgi=718) 10.0 fL 9.4-12.3 NUCLEATED RED BLOOD CELLS (BEAKER) (test 0 /100 WBC 0-0 gajm=166) NEUTROPHILS RELATIVE PERCENT (BEAKER) (test 63 % ouwy=994) LYMPHOCYTES RELATIVE PERCENT (BEAKER) (test 25 % nany=398) MONOCYTES RELATIVE PERCENT (BEAKER) (test 8 % wxcg=808) EOSINOPHILS RELATIVE PERCENT (BEAKER) (test 3 % eech=016) BASOPHILS RELATIVE PERCENT (BEAKER) (test 1 % mbko=517) NEUTROPHILS ABSOLUTE COUNT (BEAKER) (test 5.27 K/ L 1.56-6.13 hkuz=267) LYMPHOCYTES ABSOLUTE COUNT (BEAKER) (test 2.09 K/ L 1.18-3.74 tilb=676) MONOCYTES ABSOLUTE COUNT (BEAKER) (test 0.63 K/ L 0.24-0.36 vxgu=957) EOSINOPHILS ABSOLUTE COUNT (BEAKER) (test 0.27 K/ L 0.04-0.36 xlpk=917) BASOPHILS ABSOLUTE COUNT (BEAKER) (test 0.05 K/ L 0.01-0.08 frhn=409) IMMATURE GRANULOCYTES-RELATIVE PERCENT (BEAKER) 1 % 0-1 (test pcuq=5094) RAD, CHEST, 1 VIEW, NON [id number] 04:45:00Reason for exam:->pl effusionShould this be performed [...] MDReport Verified Date/Time: 05/25/2017 04:45:08 Reading Location: [address] Body Reading Room POCT-GLUCOSE [id number] 01:52:00 Test Item Value Reference Range Comments POC-GLUCOSE METER (BEAKER) 126 mg/dL 70-110 TESTED AT [address] (test lvbe=8009) [facility] [address] POCT-GLUCOSE [id number] 13:07:00 Test Item Value Reference Range Comments POC-GLUCOSE METER (BEAKER) 118 mg/dL 70-110 TESTED AT [place] [id number] [facility] (test lcyl=0400) [place] [id number] BRONCHIAL CULTURE + GRAM [id number] 11:35:00 Test Item Value Reference Range Comments CULTURE (BEAKER) (test zfhh=2007) Amikacin (test code=1) Susceptible 0-16 , Resistant [...] >40 code=47) CULTURE (BEAKER) (test 4+ Bordetella hwpl=5050) bronchiseptica GRAM STAIN RESULT 1+ WBCs (BEAKER) (test mdge=7053) GRAM STAIN RESULT <1+ gram positive (BEAKER) (test cocci in pairs rkpl=944068) GRAM STAIN RESULT 1+ gram variable (BEAKER) (test rods vosc=841756) 1+ Normal respiratory todd presentRAD, CHEST, 1 VIEW, NON [id number] 06:50: 00Reason for exam:->pl effusionShould this be [...] MDReport Verified Date/Time: 05/24/2017 06:50:08 Reading Location: [address] Body Reading Room BASIC METABOLIC [id number] 04: 19:00 Test Item Value Reference Range Comments SODIUM (BEAKER) (test 136 meq/L 136-145 wzjz=012) POTASSIUM (BEAKER) (test 4.3 meq/L 3.5-5.1 ttgy=234) CHLORIDE (BEAKER) (test 104 meq/L 98-107 zxlo=659) CO2 (BEAKER) (test 20 meq/L 22-29 ttyz=535) BLOOD UREA NITROGEN 61 mg/dL 7-21 (BEAKER) (test xxvn=995) CREATININE (BEAKER) (test 2.69 mg/dL 0.57-1.25 erbz=536) GLUCOSE RANDOM (BEAKER) 107 mg/dL 70-105 (test pect=933) CALCIUM (BEAKER) (test 7.8 mg/dL 8.4-10.2 gdtg=627) EGFR (BEAKER) (test 18 mL/min/1.73 sq m ESTIMATED GFR IS NOT qiix=3754) ACCURATE CREATININE CLEARANCE IN PREDICTING GLOMERULAR FILTRATION RATE. ESTIMATED GFR IS NOT APPLICABLE FOR DIALYSIS PATIENTS. CALCIUM, [id number] 04:16:00 Test Item Value Reference Range Comments CALCIUM IONIZED (BEAKER) (test qspg=644) 1.06 mmol/L 1.12-1.27 PH, BLOOD (BEAKER) (test nver=7799) 7.40 [id number] 04:11:00 Test Item Value Reference Range Comments PHOSPHORUS (BEAKER) (test ftfu=652) 6.0 mg/dL 2.3-4.7 [id number] 04:11:00 Test Item Value Reference Range Comments MAGNESIUM (BEAKER) (test reqy=582) 2.4 mg/dL 1.6-2.6 CBC W/PLT COUNT & AUTO [id number] 03:50:00 Test Item Value Reference Range Comments WHITE BLOOD CELL COUNT (BEAKER) (test qhgt=741) 9.5 K/ L 3.5-10.5 RED BLOOD CELL COUNT (BEAKER) (test kvha=722) 3.06 M/ L 3.93-5.22 HEMOGLOBIN (BEAKER) (test cbta=387) 7.9 GM/DL 11.2-15.7 HEMATOCRIT (BEAKER) (test tirt=812) 25.5 % 34.1-44.9 MEAN CORPUSCULAR VOLUME (BEAKER) (test kekx=669) 83.3 fL 79.4-94.8 MEAN CORPUSCULAR HEMOGLOBIN (BEAKER) (test 25.8 pg 25.6-32.2 syds=793) MEAN CORPUSCULAR HEMOGLOBIN CONC (BEAKER) (test 31.0 GM/DL 32.2-35.5 lfgy=655) RED CELL DISTRIBUTION WIDTH (BEAKER) (test 15.1 % 11.7-14.4 ovdt=837) PLATELET COUNT (BEAKER) (test gdjc=510) 224 K/CU MM 150-450 MEAN PLATELET VOLUME (BEAKER) (test ynjj=263) 10.5 fL 9.4-12.3 NUCLEATED RED BLOOD CELLS (BEAKER) (test 0 /100 WBC 0-0 uoeb=235) NEUTROPHILS RELATIVE PERCENT (BEAKER) (test 70 % ylms=987) LYMPHOCYTES RELATIVE PERCENT (BEAKER) (test 21 % tymp=411) MONOCYTES RELATIVE PERCENT (BEAKER) (test 7 % xpzn=200) EOSINOPHILS RELATIVE PERCENT (BEAKER) (test 2 % gmyt=527) BASOPHILS RELATIVE PERCENT (BEAKER) (test 0 % nmhn=935) NEUTROPHILS ABSOLUTE COUNT (BEAKER) (test 6.60 K/ L 1.56-6.13 khgr=107) LYMPHOCYTES ABSOLUTE COUNT (BEAKER) (test 2.02 K/ L 1.18-3.74 nnqm=532) MONOCYTES ABSOLUTE COUNT (BEAKER) (test 0.63 K/ L 0.24-0.36 hohn=451) EOSINOPHILS ABSOLUTE COUNT (BEAKER) (test 0.15 K/ L 0.04-0.36 pzdi=437) BASOPHILS ABSOLUTE COUNT (BEAKER) (test 0.04 K/ L 0.01-0.08 hdwt=653) IMMATURE GRANULOCYTES-RELATIVE PERCENT (BEAKER) 0 % 0-1 (test zcom=6592) POCT-GLUCOSE [id number] 20:45:00 Test Item Value Reference Range Comments POC-GLUCOSE METER (BEAKER) 143 mg/dL 70-110 TESTED AT [address] (test wftt=5157) [facility] [address] POCT-GLUCOSE [id number] 20:45:00 Test Item Value Reference Range Comments POC-GLUCOSE METER (BEAKER) 145 mg/dL 70-110 TESTED AT [address] (test pcjf=3527) [facility] [address] [id number] 13:37:00 Test Item Value Reference Range Comments PREALBUMIN (BEAKER) (test 10 mg/dL 14-45 Specimen slightly hemolyzed osro=805) OXYGEN SATURATION, [id number] 12:31:00 Test Item Value Reference Range Comments O2 SATURATION (MEASURED) (BEAKER) (test atkj=0665) 94.5 % [id number] 11:02:00 Test Item Value Reference Range Comments PREALBUMIN (BEAKER) (test qwdw=035) 10 mg/dL 14-45 RAD, CHEST, 1 VIEW, NON [id number] 05:14:00while patient is intubated or has chest [...] MDReport Verified Date/Time: 05/23/2017 05:14:04 Reading Location: [address] Body Reading Room BASIC METABOLIC [id number] 03:48:00 Test Item Value Reference Range Comments SODIUM (BEAKER) (test 138 meq/L 136-145 llxy=592) POTASSIUM (BEAKER) (test 4.6 meq/L 3.5-5.1 Specimen slightly vwzq=536) hemolyzed CHLORIDE (BEAKER) (test 106 meq/L 98-107 zddl=125) CO2 (BEAKER) (test 20 meq/L 22-29 abwy=741) BLOOD UREA NITROGEN 54 mg/dL 7-21 (BEAKER) (test qqrj=832) CREATININE (BEAKER) (test 2.66 mg/dL 0.57-1.25 Specimen slightly mplm=760) hemolyzed GLUCOSE RANDOM (BEAKER) 113 mg/dL 70-105 (test relj=191) CALCIUM (BEAKER) (test 7.9 mg/dL 8.4-10.2 gdoe=473) EGFR (BEAKER) (test 18 mL/min/1.73 sq m ESTIMATED GFR IS NOT ghxs=9700) ACCURATE CREATININE CLEARANCE IN PREDICTING GLOMERULAR FILTRATION RATE. ESTIMATED GFR IS NOT APPLICABLE FOR DIALYSIS PATIENTS. [id number] 03:46:00 Test Item Value Reference Range Comments MAGNESIUM (BEAKER) (test 2.4 mg/dL 1.6-2.6 Specimen slightly hemolyzed fxra=731) [id number] 03:46:00 Test Item Value Reference Range Comments PHOSPHORUS (BEAKER) (test 6.5 mg/dL 2.3-4.7 Specimen slightly hemolyzed hrgr=630) CBC W/PLT COUNT & AUTO [id number] 03:26:00 Test Item Value Reference Range Comments WHITE BLOOD CELL COUNT (BEAKER) (test yrmp=844) 10.8 K/ L 3.5-10.5 RED BLOOD CELL COUNT (BEAKER) (test vojr=805) 3.16 M/ L 3.93-5.22 HEMOGLOBIN (BEAKER) (test txri=362) 8.2 GM/DL 11.2-15.7 HEMATOCRIT (BEAKER) (test yrkz=964) 26.6 % 34.1-44.9 MEAN CORPUSCULAR VOLUME (BEAKER) (test oqnh=613) 84.2 fL 79.4-94.8 MEAN CORPUSCULAR HEMOGLOBIN (BEAKER) (test 25.9 pg 25.6-32.2 ljta=102) MEAN CORPUSCULAR HEMOGLOBIN CONC (BEAKER) (test 30.8 GM/DL 32.2-35.5 qkxv=723) RED CELL DISTRIBUTION WIDTH (BEAKER) (test 15.0 % 11.7-14.4 yczw=723) PLATELET COUNT (BEAKER) (test jjoa=280) 195 K/CU MM 150-450 MEAN PLATELET VOLUME (BEAKER) (test yyqb=598) 10.6 fL 9.4-12.3 NUCLEATED RED BLOOD CELLS (BEAKER) (test 0 /100 WBC 0-0 garu=265) NEUTROPHILS RELATIVE PERCENT (BEAKER) (test 73 % gqyi=425) LYMPHOCYTES RELATIVE PERCENT (BEAKER) (test 18 % ysbs=058) MONOCYTES RELATIVE PERCENT (BEAKER) (test 6 % awsy=644) EOSINOPHILS RELATIVE PERCENT (BEAKER) (test 2 % tzlq=693) BASOPHILS RELATIVE PERCENT (BEAKER) (test 1 % lxtp=638) NEUTROPHILS ABSOLUTE COUNT (BEAKER) (test 7.95 K/ L 1.56-6.13 cmhp=522) LYMPHOCYTES ABSOLUTE COUNT (BEAKER) (test 1.93 K/ L 1.18-3.74 bvxx=562) MONOCYTES ABSOLUTE COUNT (BEAKER) (test 0.66 K/ L 0.24-0.36 vtve=782) EOSINOPHILS ABSOLUTE COUNT (BEAKER) (test 0.18 K/ L 0.04-0.36 jggc=187) BASOPHILS ABSOLUTE COUNT (BEAKER) (test 0.07 K/ L 0.01-0.08 hghm=515) IMMATURE GRANULOCYTES-RELATIVE PERCENT (BEAKER) 0 % 0-1 (test ekie=3704) BLOOD GAS, [id number] 03:18:00 Test Item Value Reference Range Comments PH ARTERIAL (BEAKER) (test nvwf=938) 7.40 7.35-7.45 PCO2 ARTERIAL (BEAKER) (test diqt=174) 40 mmHg 35-45 PO2 ARTERIAL (BEAKER) (test nfpf=246) 63 mmHg 80-90 O2 SATURATION ARTERIAL (BEAKER) (test pjoi=676) 92.3 % 96.0-97.0 HCO3 ARTERIAL (BEAKER) (test exza=687) 24 mmol/L 21-29 BASE EXCESS ARTERIAL (BEAKER) (test mtlq=769) -0.6 mmol/L -2.0-3.0 PATIENT TEMPERATURE (BEAKER) (test qtyp=6397) 36.8 C FIO2 (BEAKER) (test bzme=8314) 36.0 % CALCIUM, [id number] 16:32:00 Test Item Value Reference Range Comments CALCIUM IONIZED (BEAKER) (test vtjm=822) 1.11 mmol/L 1.12-1.27 PH, BLOOD (BEAKER) (test husj=1261) 7.39 BASIC METABOLIC [id number] 15:43:00 Test Item Value Reference Range Comments SODIUM (BEAKER) (test 139 meq/L 136-145 rgtu=756) POTASSIUM (BEAKER) (test 4.6 meq/L 3.5-5.1 rwwn=243) CHLORIDE (BEAKER) (test 106 meq/L 98-107 wrms=127) CO2 (BEAKER) (test 21 meq/L 22-29 jzev=712) BLOOD UREA NITROGEN 54 mg/dL 7-21 (BEAKER) (test buos=172) CREATININE (BEAKER) (test 3.08 mg/dL 0.57-1.25 bjok=785) GLUCOSE RANDOM (BEAKER) 116 mg/dL 70-105 (test rlch=028) CALCIUM (BEAKER) (test 8.1 mg/dL 8.4-10.2 ioww=376) EGFR (BEAKER) (test 15 mL/min/1.73 sq m ESTIMATED GFR IS NOT enoh=8431) ACCURATE CREATININE CLEARANCE IN PREDICTING GLOMERULAR FILTRATION RATE. ESTIMATED GFR IS NOT APPLICABLE FOR DIALYSIS PATIENTS. POCT-GLUCOSE [id number] 12:53:00 Test Item Value Reference Range Comments POC-GLUCOSE METER (BEAKER) 118 mg/dL 70-110 TESTED AT [address] (test offq=7760) [facility] [address] BLOOD GAS, [id number] 10:42:00 Test Item Value Reference Range Comments PH ARTERIAL (BEAKER) (test vsdm=496) 7.40 7.35-7.45 PCO2 ARTERIAL (BEAKER) (test hhda=411) 38 mmHg 35-45 PO2 ARTERIAL (BEAKER) (test riyd=879) 78 mmHg 80-90 O2 SATURATION ARTERIAL (BEAKER) (test wjwa=889) 95.6 % 96.0-97.0 HCO3 ARTERIAL (BEAKER) (test jgjm=524) 23 mmol/L 21-29 BASE EXCESS ARTERIAL (BEAKER) (test wuxy=250) -1.4 mmol/L -2.0-3.0 PATIENT TEMPERATURE (BEAKER) (test whrf=1984) 36.9 C FIO2 (BEAKER) (test ohjw=1390) 40.0 % POCT-GLUCOSE [id number] 06:46:00 Test Item Value Reference Range Comments POC-GLUCOSE METER (BEAKER) 106 mg/dL 70-110 TESTED AT [address] (test xgce=6233) [facility] [address] RAD, CHEST, 1 VIEW, NON [id number] 05:05:00while patient is intubated or has chest [...] exam.Additional findings: None. Signed: JR Boswell Robert MDRepemily Verified Date/Time: 05/22/2017 05:05:00 Reading Location: [facility] [address] [address] Body ReadingRoom BASIC METABOLIC [id number] 05:00:00 Test Item Value Reference Range Comments SODIUM (BEAKER) (test 138 meq/L 136-145 uvan=526) POTASSIUM (BEAKER) (test 4.5 meq/L 3.5-5.1 yqlb=942) CHLORIDE (BEAKER) (test 107 meq/L 98-107 howx=726) CO2 (BEAKER) (test 21 meq/L 22-29 ydeu=587) BLOOD UREA NITROGEN 53 mg/dL 7-21 (BEAKER) (test ldbt=418) CREATININE (BEAKER) (test 3.23 mg/dL 0.57-1.25 qhyh=073) GLUCOSE RANDOM (BEAKER) 126 mg/dL 70-105 (test vhpq=629) CALCIUM (BEAKER) (test 8.1 mg/dL 8.4-10.2 dcud=836) EGFR (BEAKER) (test 15 mL/min/1.73 sq m ESTIMATED GFR IS NOT hoip=5069) ACCURATE CREATININE CLEARANCE IN PREDICTING GLOMERULAR FILTRATION RATE. ESTIMATED GFR IS NOT APPLICABLE FOR DIALYSIS PATIENTS. [id number] 04:41:00 Test Item Value Reference Range Comments PHOSPHORUS (BEAKER) (test zkbn=362) 6.4 mg/dL 2.3-4.7 [id number] 04:41:00 Test Item Value Reference Range Comments MAGNESIUM (BEAKER) (test nttm=355) 2.6 mg/dL 1.6-2.6 CALCIUM, [id number] 04:26:00 Test Item Value Reference Range Comments CALCIUM IONIZED (BEAKER) (test wmve=587) 1.09 mmol/L 1.12-1.27 PH, BLOOD (BEAKER) (test eaji=8553) 7.40 OXYGEN SATURATION, [id number] 04:25:00 Test Item Value Reference Range Comments O2 SATURATION (MEASURED) (BEAKER) (test llhf=2392) 77.0 % CBC W/PLT COUNT & AUTO [id number] 04:17:00 Test Item Value Reference Range Comments WHITE BLOOD CELL COUNT (BEAKER) (test qmuc=752) 8.9 K/ L 3.5-10.5 RED BLOOD CELL COUNT (BEAKER) (test mvvg=990) 3.14 M/ L 3.93-5.22 HEMOGLOBIN (BEAKER) (test xvit=058) 8.1 GM/DL 11.2-15.7 HEMATOCRIT (BEAKER) (test rdxz=017) 26.1 % 34.1-44.9 MEAN CORPUSCULAR VOLUME (BEAKER) (test yjtn=509) 83.1 fL 79.4-94.8 MEAN CORPUSCULAR HEMOGLOBIN (BEAKER) (test 25.8 pg 25.6-32.2 pygj=626) MEAN CORPUSCULAR HEMOGLOBIN CONC (BEAKER) (test 31.0 GM/DL 32.2-35.5 wlcs=583) RED CELL DISTRIBUTION WIDTH (BEAKER) (test 15.3 % 11.7-14.4 ahlu=795) PLATELET COUNT (BEAKER) (test ebqz=274) 156 K/CU MM 150-450 MEAN PLATELET VOLUME (BEAKER) (test ahwq=601) 10.2 fL 9.4-12.3 NUCLEATED RED BLOOD CELLS (BEAKER) (test 0 /100 WBC 0-0 awwl=080) NEUTROPHILS RELATIVE PERCENT (BEAKER) (test 68 % wawl=657) LYMPHOCYTES RELATIVE PERCENT (BEAKER) (test 22 % gvzt=506) MONOCYTES RELATIVE PERCENT (BEAKER) (test 8 % dgns=996) EOSINOPHILS RELATIVE PERCENT (BEAKER) (test 1 % oenk=938) BASOPHILS RELATIVE PERCENT (BEAKER) (test 1 % yggw=200) NEUTROPHILS ABSOLUTE COUNT (BEAKER) (test 6.05 K/ L 1.56-6.13 zesf=060) LYMPHOCYTES ABSOLUTE COUNT (BEAKER) (test 1.91 K/ L 1.18-3.74 jljk=611) MONOCYTES ABSOLUTE COUNT (BEAKER) (test 0.74 K/ L 0.24-0.36 dssy=951) EOSINOPHILS ABSOLUTE COUNT (BEAKER) (test 0.08 K/ L 0.04-0.36 mozf=078) BASOPHILS ABSOLUTE COUNT (BEAKER) (test 0.05 K/ L 0.01-0.08 ihpd=971) IMMATURE GRANULOCYTES-RELATIVE PERCENT (BEAKER) 0 % 0-1 (test ecbg=9767) LACTIC ACID, ARTERIAL, WHOLE [id number] 00:07:00 Test Item Value Reference Range Comments LACTATE BLOOD ARTERIAL (2) 1.0 mmol/L 0.5-2.2 Specimen slightly hemolyzed (BEAKER) (test olao=0994) Effective 08/02/2015: Units/Reference Range ChangeNew: 0.5-2.2 mmol/L Previous: 5 -20 mg/dLPOCT-GLUCOSE [id number] 23:47:00 Test Item Value Reference Range Comments POC-GLUCOSE METER (BEAKER) 180 mg/dL 70-110 TESTED AT [facility] [address] [facility] (test fvkx=8145) [facility] [address] BLOOD GAS, [id number] 23:46:00 Test Item Value Reference Range Comments PH ARTERIAL (BEAKER) (test mwmj=176) 7.40 7.35-7.45 PCO2 ARTERIAL (BEAKER) (test uwcf=084) 37 mmHg 35-45 PO2 ARTERIAL (BEAKER) (test gbwb=027) 136 mmHg 80-90 O2 SATURATION ARTERIAL (BEAKER) (test mdhi=801) 98.7 % 96.0-97.0 HCO3 ARTERIAL (BEAKER) (test qjwp=085) 22 mmol/L 21-29 BASE EXCESS ARTERIAL (BEAKER) (test tubf=194) -2.4 mmol/L -2.0-3.0 PATIENT TEMPERATURE (BEAKER) (test ayja=9038) 37.0 C FIO2 (BEAKER) (test syzr=1265) 100.0 % SODIUM NA-STAT [id number] 23:46:00 Test Item Value Reference Range Comments SODIUM (BEAKER) (test nwxl=987) 134 meq/L 135-148 GLUCOSE-STAT [id number] 23:46:00 Test Item Value Reference Range Comments GLUCOSE RANDOM (BEAKER) (test iidp=449) 119 mg/dL 70-110 HGB/HCT (H&H) - STAT [id number] 23:46:00 Test Item Value Reference Range Comments HEMOGLOBIN (BEAKER) (test iipu=910) 8.8 g/dL 12.0-15.0 HEMATOCRIT (BEAKER) (test uaow=266) 26.0 % 36.0-45.0 OXYGEN SATURATION, [id number] 23:45:00 Test Item Value Reference Range Comments O2 SATURATION (MEASURED) (BEAKER) (test wzpt=1059) 68.1 % POTASSIUM-STAT [id number] 23:45:00 Test Item Value Reference Range Comments POTASSIUM (BEAKER) (test jrrj=595) 5.5 meq/L 3.6-5.5 POCT-GLUCOSE [id number] 20:58:00 Test Item Value Reference Range Comments POC-GLUCOSE METER (BEAKER) 133 mg/dL 70-110 TESTED AT [address] (test ufjp=0289) [facility] [address] POCT-GLUCOSE [id number] 17:58:00 Test Item Value Reference Range Comments POC-GLUCOSE METER (BEAKER) 210 mg/dL 70-110 TESTED AT [address] (test kmza=8605) [facility] [address] POCT-GLUCOSE [id number] 17:58:00 Test Item Value Reference Range Comments POC-GLUCOSE METER (BEAKER) 211 mg/dL 70-110 TESTED AT [address] (test auef=7291) [facility] [address] POCT-GLUCOSE [id number] 17:58:00 Test Item Value Reference Range Comments POC-GLUCOSE METER (BEAKER) 232 mg/dL 70-110 TESTED AT [address] (test cevw=8453) [facility] [address] POCT-GLUCOSE [id number] 17:58:00 Test Item Value Reference Range Comments POC-GLUCOSE METER (BEAKER) 262 mg/dL 70-110 TESTED AT [address] (test oejb=6572) [place] [id number] BLOOD GAS, [id number] 17:01:00 Test Item Value Reference Range Comments PH ARTERIAL (BEAKER) (test jigo=517) 7.38 7.35-7.45 PCO2 ARTERIAL (BEAKER) (test kxex=458) 39 mmHg 35-45 PO2 ARTERIAL (BEAKER) (test nota=073) 75 mmHg 80-90 O2 SATURATION ARTERIAL (BEAKER) (test hxqf=640) 94.9 % 96.0-97.0 HCO3 ARTERIAL (BEAKER) (test ndfo=535) 23 mmol/L 21-29 BASE EXCESS ARTERIAL (BEAKER) (test netn=956) -2.5 mmol/L -2.0-3.0 PATIENT TEMPERATURE (BEAKER) (test enax=6422) 36.8 C FIO2 (BEAKER) (test xbpv=2675) 60.0 % POTASSIUM-STAT [id number] 17:00:00 Test Item Value Reference Range Comments POTASSIUM (BEAKER) (test ryjf=350) 4.8 meq/L 3.6-5.5 POCT-GLUCOSE [id number] 15:52:00 Test Item Value Reference Range Comments POC-GLUCOSE METER (BEAKER) 267 mg/dL 70-110 TESTED AT [address] (test bqmj=1963) [place] [address] POCT-GLUCOSE [id number] 14:42:00 Test Item Value Reference Range Comments POC-GLUCOSE METER (BEAKER) 231 mg/dL 70-110 TESTED AT [address] (test mozd=7202) [place] [address] BODY FLUID CELL COUNT WITH [id number] 14:41:00 Test Item Value Reference Range Comments APPEARANCE FLUID (BEAKER) (test ujof=142) Turbid Clear COLOR FLUID (BEAKER) (test kncn=529) Colorless Colorless, Straw RBC FLUID (BEAKER) (test hxwk=273) 2000 /cu mm <=1 ADJUSTED WBC FLUID (BEAKER) (test ayqj=1971) 1489 /cu mm <=5 LINING CELLS (BEAKER) (test deuk=0712) 119 /cu mm <=1 NEUTROPHILS FLUID (BEAKER) (test winb=8146) 40 % LYMPHS FLUID (BEAKER) (test rbec=957) 34 % MONO/MACROPHAGE FLUID (BEAKER) (test agye=282) 26 % EOSINOPHILS FLUID (BEAKER) (test uaom=863) 0 % BASO FLUID (BEAKER) (test fdwr=403) 0 % CONTAINER BODY FLUID (BEAKER) (test gait=9039) EDTA Tube BASIC METABOLIC [id number] 14:11:00 Test Item Value Reference Range Comments SODIUM (BEAKER) (test 137 meq/L 136-145 yhmq=211) POTASSIUM (BEAKER) (test 5.6 meq/L 3.5-5.1 omsd=631) CHLORIDE (BEAKER) (test 106 meq/L 98-107 ogcz=327) CO2 (BEAKER) (test 20 meq/L 22-29 uuxv=402) BLOOD UREA NITROGEN 48 mg/dL 7-21 (BEAKER) (test ftdn=431) CREATININE (BEAKER) (test 2.50 mg/dL 0.57-1.25 fqxv=070) GLUCOSE RANDOM (BEAKER) 221 mg/dL 70-105 (test maat=830) CALCIUM (BEAKER) (test 8.1 mg/dL 8.4-10.2 puqx=152) EGFR (BEAKER) (test 20 mL/min/1.73 sq m ESTIMATED GFR IS NOT brsd=6875) ACCURATE CREATININE CLEARANCE IN PREDICTING GLOMERULAR FILTRATION RATE. ESTIMATED GFR IS NOT APPLICABLE FOR DIALYSIS PATIENTS. [id number] 14:08:00 Test Item Value Reference Range Comments PHOSPHORUS (BEAKER) (test sgxn=252) 7.2 mg/dL 2.3-4.7 [id number] 14:08:00 Test Item Value Reference Range Comments MAGNESIUM (BEAKER) (test vcgo=119) 2.6 mg/dL 1.6-2.6 POCT-GLUCOSE [id number] 12:49:00 Test Item Value Reference Range Comments POC-GLUCOSE METER (BEAKER) 224 mg/dL 70-110 TESTED AT [address] (test cjkk=7283) [facility] [address] POCT-GLUCOSE [id number] 12:49:00 Test Item Value Reference Range Comments POC-GLUCOSE METER (BEAKER) 248 mg/dL 70-110 TESTED AT [address] (test whua=5044) [facility] [address] RAD, CHEST, 1 VIEW, NON [id number] 12:32:00Reason for exam:->re- intubationShould this be performed [...] MDReport Verified Date/Time: 05/21/2017 12:32:08 Reading Location: [facility] Radiology Reading Room POTASSIUM-STAT [id number] 12:28:00 Test Item Value Reference Range Comments POTASSIUM (BEAKER) (test pdkf=027) 5.5 meq/L 3.6-5.5 BLOOD GAS, [id number] 12:28:00 Test Item Value Reference Range Comments PH ARTERIAL (BEAKER) (test idco=996) 7.32 7.35-7.45 PCO2 ARTERIAL (BEAKER) (test wpqa=080) 45 mmHg 35-45 PO2 ARTERIAL (BEAKER) (test dfwe=175) 304 mmHg 80-90 O2 SATURATION ARTERIAL (BEAKER) (test obvz=092) 99.7 % 96.0-97.0 HCO3 ARTERIAL (BEAKER) (test uqct=031) 22 mmol/L 21-29 BASE EXCESS ARTERIAL (BEAKER) (test zzbc=264) -3.7 mmol/L -2.0-3.0 PATIENT TEMPERATURE (BEAKER) (test ewhu=9628) 37.0 C FIO2 (BEAKER) (test arff=3829) 100.0 % BLOOD GAS, [id number] 10:53:00 Test Item Value Reference Range Comments PH ARTERIAL (BEAKER) (test fqzg=359) 7.36 7.35-7.45 PCO2 ARTERIAL (BEAKER) (test dpok=849) 35 mmHg 35-45 PO2 ARTERIAL (BEAKER) (test xkdz=884) 40 mmHg 80-90 O2 SATURATION ARTERIAL (BEAKER) (test qqse=266) 82.3 % 96.0-97.0 HCO3 ARTERIAL (BEAKER) (test vvtf=045) 20 mmol/L 21-29 BASE EXCESS ARTERIAL (BEAKER) (test fpee=860) -5.9 mmol/L -2.0-3.0 PATIENT TEMPERATURE (BEAKER) (test gmxz=9681) 33.7 C FIO2 (BEAKER) (test uepz=1531) 36.0 % RAD, CHEST, 1 VIEW, NON [id number] 08:46:00while patient is intubated or has chest [...] Verified Date/ Time: 05/21/2017 08:46:27 Reading Location: [facility] Radiology Reading Room BLOOD GAS, [id number] 05:41:00 Test Item Value Reference Range Comments PH ARTERIAL (BEAKER) (test qvfx=067) 7.33 7.35-7.45 PCO2 ARTERIAL (BEAKER) (test gkbf=368) 40 mm Hg 35-45 PO2 ARTERIAL (BEAKER) (test kfph=445) 106 mm Hg 80-90 O2 SATURATION ARTERIAL (BEAKER) (test azyh=505) 97.5 % 96.0-97.0 HCO3 ARTERIAL (BEAKER) (test ebal=733) 21 mmol/L 21-29 BASE EXCESS ARTERIAL (BEAKER) (test wpil=558) -5.1 mmol/L -2.0-3.0 PATIENT TEMPERATURE (BEAKER) (test haiv=2418) 37.0 FIO2 (BEAKER) (test aorm=8535) 40 CALCIUM, [id number] 04:35:00 Test Item Value Reference Range Comments CALCIUM IONIZED (BEAKER) (test vnao=084) 1.13 mmol/L 1.12-1.27 PH, BLOOD (BEAKER) (test mpth=4864) 7.32 BLOOD GAS, [id number] 04:28:00 Test Item Value Reference Range Comments PH ARTERIAL (BEAKER) (test kyja=506) 7.32 7.35-7.45 PCO2 ARTERIAL (BEAKER) (test rivd=849) 40 mmHg 35-45 PO2 ARTERIAL (BEAKER) (test wkua=196) 100 mmHg 80-90 O2 SATURATION ARTERIAL (BEAKER) (test aztv=711) 97.2 % 96.0-97.0 HCO3 ARTERIAL (BEAKER) (test rkww=490) 20 mmol/L 21-29 BASE EXCESS ARTERIAL (BEAKER) (test henm=966) -5.7 mmol/L -2.0-3.0 PATIENT TEMPERATURE (BEAKER) (test lnbl=0674) 36.9 C FIO2 (BEAKER) (test hzbk=1060) 40.0 % [id number] 04:20:00 Test Item Value Reference Range Comments PHOSPHORUS (BEAKER) (test kiza=184) 6.2 mg/dL 2.3-4.7 [id number] 04:20:00 Test Item Value Reference Range Comments MAGNESIUM (BEAKER) (test nlhp=470) 2.4 mg/dL 1.6-2.6 HEPATIC FUNCTION [id number] 04:20:00 Test Item Value Reference Range Comments TOTAL PROTEIN (BEAKER) (test ihrf=745) 4.8 gm/dL 6.0-8.3 ALBUMIN (BEAKER) (test vwxw=9249) 2.5 g/dL 3.5-5.0 BILIRUBIN TOTAL (BEAKER) (test bvwn=837) 0.7 mg/dL 0.2-1.2 BILIRUBIN DIRECT (BEAKER) (test zmld=830) 0.3 mg/dL 0.1-0.5 ALKALINE PHOSPHATASE (BEAKER) (test molk=821) 96 U/L 40-150 AST (SGOT) (BEAKER) (test ywmo=457) 31 U/L 5-34 ALT (SGPT) (BEAKER) (test hgnc=444) 11 U/L 6-55 BASIC METABOLIC [id number] 04:20:00 Test Item Value Reference Range Comments SODIUM (BEAKER) (test 134 meq/L 136-145 bmno=905) POTASSIUM (BEAKER) (test 5.0 meq/L 3.5-5.1 orax=112) CHLORIDE (BEAKER) (test 105 meq/L 98-107 rjiv=170) CO2 (BEAKER) (test 18 meq/L 22-29 cbfu=754) BLOOD UREA NITROGEN 45 mg/dL 7-21 (BEAKER) (test mxdo=500) CREATININE (BEAKER) (test 1.91 mg/dL 0.57-1.25 ykcr=368) GLUCOSE RANDOM (BEAKER) 247 mg/dL 70-105 (test zmyh=690) CALCIUM (BEAKER) (test 7.9 mg/dL 8.4-10.2 aljg=187) EGFR (BEAKER) (test 27 mL/min/1.73 sq m ESTIMATED GFR IS NOT zyyw=0424) ACCURATE CREATININE CLEARANCE IN PREDICTING GLOMERULAR FILTRATION RATE. ESTIMATED GFR IS NOT APPLICABLE FOR DIALYSIS PATIENTS. OXYGEN SATURATION, [id number] 04:18:00 Test Item Value Reference Range Comments O2 SATURATION (MEASURED) (BEAKER) (test bwhb=8033) 68.0 % LACTIC ACID, ARTERIAL, WHOLE [id number] 04:12:00 Test Item Value Reference Range Comments LACTATE BLOOD ARTERIAL (2) (BEAKER) (test 1.0 mmol/L 0.5-2.2 tfsw=0966) Effective 08/02/2015: Units/Reference Range ChangeNew: 0.5-2.2 mmol/L Previous: 5 -20 mg/dLCBC W/PLT COUNT & AUTO [id number] 04:00:00 Test Item Value Reference Range Comments WHITE BLOOD CELL COUNT (BEAKER) (test uyee=756) 12.0 K/ L 3.5-10.5 RED BLOOD CELL COUNT (BEAKER) (test zspi=335) 3.32 M/ L 3.93-5.22 HEMOGLOBIN (BEAKER) (test ccfx=204) 8.8 GM/DL 11.2-15.7 HEMATOCRIT (BEAKER) (test fdkz=695) 28.3 % 34.1-44.9 MEAN CORPUSCULAR VOLUME (BEAKER) (test arqg=890) 85.2 fL 79.4-94.8 MEAN CORPUSCULAR HEMOGLOBIN (BEAKER) (test 26.5 pg 25.6-32.2 qsww=609) MEAN CORPUSCULAR HEMOGLOBIN CONC (BEAKER) (test 31.1 GM/DL 32.2-35.5 nyme=896) RED CELL DISTRIBUTION WIDTH (BEAKER) (test 15.0 % 11.7-14.4 pjaa=594) PLATELET COUNT (BEAKER) (test ljcl=047) 157 K/CU MM 150-450 MEAN PLATELET VOLUME (BEAKER) (test wixz=320) 10.7 fL 9.4-12.3 NUCLEATED RED BLOOD CELLS (BEAKER) (test 0 /100 WBC 0-0 ucbp=781) NEUTROPHILS RELATIVE PERCENT (BEAKER) (test 91 % vknt=099) LYMPHOCYTES RELATIVE PERCENT (BEAKER) (test 4 % pral=961) MONOCYTES RELATIVE PERCENT (BEAKER) (test 4 % gvfw=434) EOSINOPHILS RELATIVE PERCENT (BEAKER) (test 0 % uvrp=409) BASOPHILS RELATIVE PERCENT (BEAKER) (test 0 % hlss=488) NEUTROPHILS ABSOLUTE COUNT (BEAKER) (test 10.95 K/ L 1.56-6.13 jzvy=131) LYMPHOCYTES ABSOLUTE COUNT (BEAKER) (test 0.52 K/ L 1.18-3.74 hyti=588) MONOCYTES ABSOLUTE COUNT (BEAKER) (test 0.42 K/ L 0.24-0.36 twru=021) EOSINOPHILS ABSOLUTE COUNT (BEAKER) (test 0.01 K/ L 0.04-0.36 oagx=221) BASOPHILS ABSOLUTE COUNT (BEAKER) (test 0.05 K/ L 0.01-0.08 uynz=796) IMMATURE GRANULOCYTES-RELATIVE PERCENT (BEAKER) 0 % 0-1 (test ehnz=6145) BLOOD GAS, [id number] 00:06:00 Test Item Value Reference Range Comments PH ARTERIAL (BEAKER) (test tbnx=751) 7.26 7.35-7.45 PCO2 ARTERIAL (BEAKER) (test wawf=900) 52 mmHg 35-45 PO2 ARTERIAL (BEAKER) (test poln=915) 88 mmHg 80-90 O2 SATURATION ARTERIAL (BEAKER) (test glrx=670) 95.7 % 96.0-97.0 HCO3 ARTERIAL (BEAKER) (test wwzf=350) 23 mmol/L 21-29 BASE EXCESS ARTERIAL (BEAKER) (test urcg=256) -4.0 mmol/L -2.0-3.0 PATIENT TEMPERATURE (BEAKER) (test dyek=5593) 36.4 C FIO2 (BEAKER) (test iuro=6094) 40.0 % [id number] 18:55:00 Test Item Value Reference Range Comments PHOSPHORUS (BEAKER) (test hgnn=579) 4.8 mg/dL 2.3-4.7 [id number] 18:55:00 Test Item Value Reference Range Comments MAGNESIUM (BEAKER) (test thug=092) 2.3 mg/dL 1.6-2.6 BASIC METABOLIC [id number] 18:55:00 Test Item Value Reference Range Comments SODIUM (BEAKER) (test 136 meq/L 136-145 pkam=509) POTASSIUM (BEAKER) (test 4.5 meq/L 3.5-5.1 krtt=464) CHLORIDE (BEAKER) (test 108 meq/L 98-107 mahd=028) CO2 (BEAKER) (test 21 meq/L 22-29 vloy=698) BLOOD UREA NITROGEN 39 mg/dL 7-21 (BEAKER) (test btjf=541) CREATININE (BEAKER) (test 1.58 mg/dL 0.57-1.25 pona=833) GLUCOSE RANDOM (BEAKER) 172 mg/dL 70-105 (test vxld=695) CALCIUM (BEAKER) (test 7.9 mg/dL 8.4-10.2 twbr=172) EGFR (BEAKER) (test 33 mL/min/1.73 sq m ESTIMATED GFR IS NOT kqtp=9084) ACCURATE CREATININE CLEARANCE IN PREDICTING GLOMERULAR FILTRATION RATE. ESTIMATED GFR IS NOT APPLICABLE FOR DIALYSIS PATIENTS. LACTIC ACID, ARTERIAL, WHOLE [id number] 18:53:00 Test Item Value Reference Range Comments LACTATE BLOOD ARTERIAL (2) 0.9 mmol/L 0.5-2.2 Specimen slightly hemolyzed (BEAKER) (test nuqw=4472) Effective 08/02/2015: Units/Reference Range ChangeNew: 0.5-2.2 mmol/L Previous: 5 -20 mg/dLRAD, CHEST, 1 VIEW, NON [id number] 18:44:00Reason for exam:-> postop cardiacShould this be [...] MDReport Verified Date/Time: 2017 18:44:30 Reading Location: [address] Consult Reading Room Electronically signed by: LISA LI M.D. on05/20/2017 06:44 PMCBC W/PLT COUNT & AUTO [id number] 18:38:00 Test Item Value Reference Range Comments WHITE BLOOD CELL COUNT (BEAKER) (test xjnx=955) 8.7 K/ L 3.5-10.5 RED BLOOD CELL COUNT (BEAKER) (test aabv=065) 3.33 M/ L 3.93-5.22 HEMOGLOBIN (BEAKER) (test gohz=957) 8.7 GM/DL 11.2-15.7 HEMATOCRIT (BEAKER) (test vwxb=240) 27.9 % 34.1-44.9 MEAN CORPUSCULAR VOLUME (BEAKER) (test hiag=285) 83.8 fL 79.4-94.8 MEAN CORPUSCULAR HEMOGLOBIN (BEAKER) (test 26.1 pg 25.6-32.2 jfyi=184) MEAN CORPUSCULAR HEMOGLOBIN CONC (BEAKER) (test 31.2 GM/DL 32.2-35.5 atyn=826) RED CELL DISTRIBUTION WIDTH (BEAKER) (test 14.9 % 11.7-14.4 paqa=496) PLATELET COUNT (BEAKER) (test jblp=169) 137 K/CU MM 150-450 MEAN PLATELET VOLUME (BEAKER) (test xauh=528) 10.2 fL 9.4-12.3 NUCLEATED RED BLOOD CELLS (BEAKER) (test 0 /100 WBC 0-0 zoii=280) NEUTROPHILS RELATIVE PERCENT (BEAKER) (test 79 % arnk=547) LYMPHOCYTES RELATIVE PERCENT (BEAKER) (test 12 % owva=804) MONOCYTES RELATIVE PERCENT (BEAKER) (test 7 % nsqm=417) EOSINOPHILS RELATIVE PERCENT (BEAKER) (test 1 % yazq=274) BASOPHILS RELATIVE PERCENT (BEAKER) (test 1 % jfgv=502) NEUTROPHILS ABSOLUTE COUNT (BEAKER) (test 6.83 K/ L 1.56-6.13 cmut=242) LYMPHOCYTES ABSOLUTE COUNT (BEAKER) (test 1.06 K/ L 1.18-3.74 lvql=465) MONOCYTES ABSOLUTE COUNT (BEAKER) (test 0.56 K/ L 0.24-0.36 lgyd=672) EOSINOPHILS ABSOLUTE COUNT (BEAKER) (test 0.12 K/ L 0.04-0.36 dswr=594) BASOPHILS ABSOLUTE COUNT (BEAKER) (test 0.04 K/ L 0.01-0.08 hvmx=838) IMMATURE GRANULOCYTES-RELATIVE PERCENT (BEAKER) 1 % 0-1 (test jxuk=5388) OXYGEN SATURATION, [id number] 18:36:00 Test Item Value Reference Range Comments O2 SATURATION (MEASURED) (BEAKER) (test bxrn=8958) 72.5 % From distal port of IJ central venous catheterSODIUM NA-STAT [id number] 18:30 :00 Test Item Value Reference Range Comments SODIUM (BEAKER) (test wcck=358) 132 meq/L 135-148 HGB/HCT (H&H) - STAT [id number] 18:30:00 Test Item Value Reference Range Comments HEMOGLOBIN (BEAKER) (test stut=516) 9.4 g/dL 12.0-15.0 HEMATOCRIT (BEAKER) (test niun=540) 28.0 % 36.0-45.0 GLUCOSE-STAT [id number] 18:30:00 Test Item Value Reference Range Comments GLUCOSE RANDOM (BEAKER) (test jhrg=428) 159 mg/dL 70-110 BLOOD GAS, [id number] 18:30:00 Test Item Value Reference Range Comments PH ARTERIAL (BEAKER) (test sabh=866) 7.34 7.35-7.45 PCO2 ARTERIAL (BEAKER) (test mqzy=758) 43 mmHg 35-45 PO2 ARTERIAL (BEAKER) (test pbdt=684) 76 mmHg 80-90 O2 SATURATION ARTERIAL (BEAKER) (test naya=392) 94.9 % 96.0-97.0 HCO3 ARTERIAL (BEAKER) (test oxru=256) 23 mmol/L 21-29 BASE EXCESS ARTERIAL (BEAKER) (test coqv=795) -2.6 mmol/L -2.0-3.0 PATIENT TEMPERATURE (BEAKER) (test xqth=7725) 36.4 C FIO2 (BEAKER) (test mfvz=5793) 60.0 % CALCIUM, [id number] 18:30:00 Test Item Value Reference Range Comments CALCIUM IONIZED (BEAKER) (test qcss=798) 0.94 mmol/L 1.12-1.27 PH, BLOOD (BEAKER) (test yfmn=7964) 7.34 POTASSIUM-STAT [id number] 18:28:00 Test Item Value Reference Range Comments POTASSIUM (BEAKER) (test ytkx=432) 4.4 meq/L 3.6-5.5 THROMBOELASTOGRAPH ([id number] 18:11:00 Test Item Value Reference Range Comments TEG ACTIVATED CLOTTING TIME (BEAKER) (test 6.7 minutes 4.0-7.0 cjaj=8229) TEG FIBRINOGEN ACTIVITY (BEAKER) (test 66.6 degrees 61.0-73.0 irww=6710) TEG PLT. AGGREGATION (BEAKER) (test exev=3289) 62.4 MM 55.0-65.0 TEG FIBRINOLYSIS (BEAKER) (test qxjm=0915) 0.0 % 0.0-5.0 TGH ACTIVATED CLOTTING TIME (BEAKER) (test 6.7 minutes 4.0-7.0 bxrv=8703) [facility]GH FIBRINOGEN ACTIVITY ([facility]) (test 69.0 degrees 61.0-73.0 nctg=8004) TGH PLT. AGGREGATION ([facility]) (test nwxj=1991) 62.8 MM 55.0-65.0 TGH FIBRINOLYSIS ([facility]) (test ybnn=0918) 0.0 % 0.0-5.0 [id number] 17:53:00 Test Item Value Reference Range Comments ACTIVATED CLOTTING TIME 103 sec TESTED AT [address] [facility] (test wisd=475) [place] [address] [id number] 17:53:00 Test Item Value Reference Range Comments ACTIVATED CLOTTING TIME 466 sec TESTED AT [address] ([facility]) (test mxqw=483) [place] [address] [id number] 17:53:00 Test Item Value Reference Range Comments ACTIVATED CLOTTING TIME 543 sec TESTED AT [address] ([facility]) (test apre=757) [place] [address] [id number] 17:53:00 Test Item Value Reference Range Comments ACTIVATED CLOTTING TIME 549 sec TESTED AT [address] ([facility]) (test enlh=026) [place] [address] [id number] 17:53:00 Test Item Value Reference Range Comments ACTIVATED CLOTTING TIME 632 sec TESTED AT [address] [facility] (test fudm=470) [place] [address] [id number] 17:53:00 Test Item Value Reference Range Comments ACTIVATED CLOTTING TIME 494 sec TESTED AT [address] [facility] (test oswg=455) [place] [address] [id number] 17:53:00 Test Item Value Reference Range Comments ACTIVATED CLOTTING TIME 587 sec TESTED AT [address] ([facility]) (test hnse=024) [place] [address] [id number] 17:53:00 Test Item Value Reference Range Comments ACTIVATED CLOTTING TIME 626 sec TESTED AT [address] [facility] (test kgwd=613) [place] [address] [id number] 17:52:00 Test Item Value Reference Range Comments ACTIVATED CLOTTING TIME 808 sec TESTED AT [facility] [address] (BEAKER) (test mkjs=456) [place] [address] [id number] 16:54:00 Test Item Value Reference Range Comments PARTIAL THROMBOPLASTIN TIME (BEAKER) (test 40.2 seconds 22.5-36.0 wjvw=145) [id number] 16:53:00 Test Item Value Reference Range Comments FIBRINOGEN LEVEL (BEAKER) (test xlob=651) 306 mg/dl 225-434 PROTHROMBIN [id number] 16:50:00 Test Item Value Reference Range Comments PROTIME (BEAKER) (test unmn=168) 19.6 seconds 11.7-14.7 INR (BEAKER) (test oijy=364) 1.7 <=5.9 RECOMMENDED COUMADIN/WARFARIN INR THERAPY RANGESSTANDARD DOSE: 2.0 - 3.0 Includes: PROPHYLAXIS forvenous thrombosis, systemic embolization; TREATMENT for venous thrombosis and/or pulmonary embolus.HIGH RISK: Target INR is 2.5-3.5 for patients with mechanical heart valves.PLATELET [id number] 16:45:00 Test Item Value Reference Range Comments PLATELET COUNT (BEAKER) (test ifrn=275) 136 K/CU MM 150-450 POTASSIUM-STAT [id number] 16:15:00 Test Item Value Reference Range Comments POTASSIUM (BEAKER) (test lbok=990) 4.9 meq/L 3.6-5.5 BLOOD GAS, [id number] 16:15:00 Test Item Value Reference Range Comments PH ARTERIAL (BEAKER) (test wraw=173) 7.39 7.35-7.45 PCO2 ARTERIAL (BEAKER) (test rdyk=155) 42 mmHg 35-45 PO2 ARTERIAL (BEAKER) (test zduz=285) 201 mmHg 80-90 O2 SATURATION ARTERIAL (BEAKER) (test cpby=833) 99.4 % 96.0-97.0 HCO3 ARTERIAL (BEAKER) (test rkby=146) 25 mmol/L 21-29 BASE EXCESS ARTERIAL (BEAKER) (test uyjz=221) -0.3 mmol/L -2.0-3.0 PATIENT TEMPERATURE (BEAKER) (test serm=8471) 36.3 C FIO2 (BEAKER) (test vpsi=3888) 100.0 % SODIUM NA-STAT [id number] 16:15:00 Test Item Value Reference Range Comments SODIUM (BEAKER) (test pvgm=424) 131 meq/L 135-148 GLUCOSE-STAT [id number] 16:15:00 Test Item Value Reference Range Comments GLUCOSE RANDOM (BEAKER) (test aojr=850) 198 mg/dL 70-110 HGB/HCT (H&H) - STAT [id number] 16:15:00 Test Item Value Reference Range Comments HEMOGLOBIN (BEAKER) (test wrry=047) 7.5 g/dL 12.0-15.0 HEMATOCRIT (BEAKER) (test efgg=388) 22.0 % 36.0-45.0 CALCIUM, [id number] 16:14:00 Test Item Value Reference Range Comments CALCIUM IONIZED (BEAKER) (test slhn=544) 0.91 mmol/L 1.12-1.27 PH, BLOOD (BEAKER) (test lnly=4720) 7.39 BLOOD GAS, [id number] 15:39:00 Test Item Value Reference Range Comments PH ARTERIAL (BEAKER) (test vwhn=522) 7.44 7.35-7.45 PCO2 ARTERIAL (BEAKER) (test ywym=126) 38 mmHg 35-45 PO2 ARTERIAL (BEAKER) (test rlrr=823) 298 mmHg 80-90 O2 SATURATION ARTERIAL (BEAKER) (test qvln=715) 99.7 % 96.0-97.0 HCO3 ARTERIAL (BEAKER) (test dmku=721) 25 mmol/L 21-29 BASE EXCESS ARTERIAL (BEAKER) (test zmyn=141) 0.7 mmol/L -2.0-3.0 PATIENT TEMPERATURE (BEAKER) (test ttpi=6917) 36.2 C FIO2 (BEAKER) (test jifv=4776) 70.0 % SODIUM NA-STAT [id number] 15:39:00 Test Item Value Reference Range Comments SODIUM (BEAKER) (test lrpy=791) 131 meq/L 135-148 GLUCOSE-STAT [id number] 15:39:00 Test Item Value Reference Range Comments GLUCOSE RANDOM (BEAKER) (test zbwm=121) 186 mg/dL 70-110 HGB/HCT (H&H) - STAT [id number] 15:39:00 Test Item Value Reference Range Comments HEMOGLOBIN (BEAKER) (test usii=857) 7.5 g/dL 12.0-15.0 HEMATOCRIT (BEAKER) (test fnoc=248) 22.0 % 36.0-45.0 POTASSIUM-STAT [id number] 15:38:00 Test Item Value Reference Range Comments POTASSIUM (BEAKER) (test wsxw=862) 5.3 meq/L 3.6-5.5 BLOOD GAS, [id number] 15:24:00 Test Item Value Reference Range Comments PH ARTERIAL (BEAKER) (test hjra=926) 7.47 7.35-7.45 PCO2 ARTERIAL (BEAKER) (test nipo=070) 37 mmHg 35-45 PO2 ARTERIAL (BEAKER) (test erig=823) 334 mmHg 80-90 O2 SATURATION ARTERIAL (BEAKER) (test cuoz=205) 99.8 % 96.0-97.0 HCO3 ARTERIAL (BEAKER) (test vbyu=568) 26 mmol/L 21-29 BASE EXCESS ARTERIAL (BEAKER) (test aecy=665) 2.2 mmol/L -2.0-3.0 PATIENT TEMPERATURE (BEAKER) (test rrfu=7206) 36.2 C FIO2 (BEAKER) (test glfa=2360) 70.0 % SODIUM NA-STAT [id number] 15:24:00 Test Item Value Reference Range Comments SODIUM (BEAKER) (test awar=378) 130 meq/L 135-148 GLUCOSE-STAT [id number] 15:24:00 Test Item Value Reference Range Comments GLUCOSE RANDOM (BEAKER) (test tcpp=929) 189 mg/dL 70-110 HGB/HCT (H&H) - STAT [id number] 15:24:00 Test Item Value Reference Range Comments HEMOGLOBIN (BEAKER) (test dhtr=500) 6.7 g/dL 12.0-15.0 HEMATOCRIT (BEAKER) (test nley=325) 20.0 % 36.0-45.0 POTASSIUM-STAT [id number] 15:23:00 Test Item Value Reference Range Comments POTASSIUM (BEAKER) (test uphv=432) 5.4 meq/L 3.6-5.5 BLOOD GAS, [id number] 15:07:00 Test Item Value Reference Range Comments PH ARTERIAL (BEAKER) (test cuko=992) 7.43 7.35-7.45 PCO2 ARTERIAL (BEAKER) (test ruyw=695) 41 mmHg 35-45 PO2 ARTERIAL (BEAKER) (test pifg=725) 365 mmHg 80-90 O2 SATURATION ARTERIAL (BEAKER) (test bkle=463) 99.8 % 96.0-97.0 HCO3 ARTERIAL (BEAKER) (test yvqg=721) 27 mmol/L 21-29 BASE EXCESS ARTERIAL (BEAKER) (test hpjx=325) 1.9 mmol/L -2.0-3.0 PATIENT TEMPERATURE (BEAKER) (test ancy=8278) 35.8 C FIO2 (BEAKER) (test hhwr=6139) 70.0 % SODIUM NA-STAT [id number] 15:07:00 Test Item Value Reference Range Comments SODIUM (BEAKER) (test htlx=133) 129 meq/L 135-148 GLUCOSE-STAT [id number] 15:07:00 Test Item Value Reference Range Comments GLUCOSE RANDOM (BEAKER) (test xllw=973) 172 mg/dL 70-110 HGB/HCT (H&H) - STAT [id number] 15:07:00 Test Item Value Reference Range Comments HEMOGLOBIN (BEAKER) (test mhum=093) 7.1 g/dL 12.0-15.0 HEMATOCRIT (BEAKER) (test pvrw=691) 21.0 % 36.0-45.0 POTASSIUM-STAT [id number] 15:04:00 Test Item Value Reference Range Comments POTASSIUM (BEAKER) (test tcvf=676) 5.0 meq/L 3.6-5.5 BLOOD GAS, [id number] 14:21:00 Test Item Value Reference Range Comments PH ARTERIAL (BEAKER) (test ndlk=980) 7.43 7.35-7.45 PCO2 ARTERIAL (BEAKER) (test okkp=811) 38 mmHg 35-45 PO2 ARTERIAL (BEAKER) (test wjhh=950) 360 mmHg 80-90 O2 SATURATION ARTERIAL (BEAKER) (test blhw=433) 99.8 % 96.0-97.0 HCO3 ARTERIAL (BEAKER) (test crti=228) 27 mmol/L 21-29 BASE EXCESS ARTERIAL (BEAKER) (test bimm=215) 0.3 mmol/L -2.0-3.0 PATIENT TEMPERATURE (BEAKER) (test pvtb=0901) 28.9 C FIO2 (BEAKER) (test jrfa=2047) 70.0 % SODIUM NA-STAT [id number] 14:21:00 Test Item Value Reference Range Comments SODIUM (BEAKER) (test pbhu=458) 133 meq/L 135-148 GLUCOSE-STAT [id number] 14:21:00 Test Item Value Reference Range Comments GLUCOSE RANDOM (BEAKER) (test zfgp=986) 160 mg/dL 70-110 HGB/HCT (H&H) - STAT [id number] 14:21:00 Test Item Value Reference Range Comments HEMOGLOBIN (BEAKER) (test alao=836) 7.5 g/dL 12.0-15.0 HEMATOCRIT (BEAKER) (test bbag=634) 22.0 % 36.0-45.0 POTASSIUM-STAT [id number] 14:20:00 Test Item Value Reference Range Comments POTASSIUM (BEAKER) (test rjsn=118) 4.7 meq/L 3.6-5.5 BLOOD GAS, [id number] 13:58:00 Test Item Value Reference Range Comments PH ARTERIAL (BEAKER) (test cquj=215) 7.43 7.35-7.45 PCO2 ARTERIAL (BEAKER) (test effu=832) 37 mmHg 35-45 PO2 ARTERIAL (BEAKER) (test borp=750) 448 mmHg 80-90 O2 SATURATION ARTERIAL (BEAKER) (test usrl=871) 99.9 % 96.0-97.0 HCO3 ARTERIAL (BEAKER) (test deyq=984) 26 mmol/L 21-29 BASE EXCESS ARTERIAL (BEAKER) (test zejz=229) -0.1 mmol/L -2.0-3.0 PATIENT TEMPERATURE (BEAKER) (test xcdo=7216) 29.2 C FIO2 (BEAKER) (test qzxn=8816) 80.0 % SODIUM NA-STAT [id number] 13:58:00 Test Item Value Reference Range Comments SODIUM (BEAKER) (test ykgg=421) 132 meq/L 135-148 GLUCOSE-STAT [id number] 13:58:00 Test Item Value Reference Range Comments GLUCOSE RANDOM (BEAKER) (test ruly=710) 166 mg/dL 70-110 HGB/HCT (H&H) - STAT [id number] 13:58:00 Test Item Value Reference Range Comments HEMOGLOBIN (BEAKER) (test esyf=619) 7.5 g/dL 12.0-15.0 HEMATOCRIT (BEAKER) (test puxr=040) 22.0 % 36.0-45.0 POTASSIUM-STAT [id number] 13:57:00 Test Item Value Reference Range Comments POTASSIUM (BEAKER) (test ltwc=470) 4.7 meq/L 3.6-5.5 BLOOD GAS, [id number] 13:35:00 Test Item Value Reference Range Comments PH ARTERIAL (BEAKER) (test qtss=741) 7.51 7.35-7.45 PCO2 ARTERIAL (BEAKER) (test wibc=804) 33 mmHg 35-45 PO2 ARTERIAL (BEAKER) (test fdie=541) 453 mmHg 80-90 O2 SATURATION ARTERIAL (BEAKER) (test yggf=559) 99.9 % 96.0-97.0 HCO3 ARTERIAL (BEAKER) (test pimv=460) 28 mmol/L 21-29 BASE EXCESS ARTERIAL (BEAKER) (test kiko=337) 2.7 mmol/L -2.0-3.0 PATIENT TEMPERATURE (BEAKER) (test hswk=1167) 29.2 C FIO2 (BEAKER) (test cbum=6289) 80.0 % GLUCOSE-STAT [id number] 13:35:00 Test Item Value Reference Range Comments GLUCOSE RANDOM (BEAKER) (test nuns=764) 130 mg/dL 70-110 HGB/HCT (H&H) - STAT [id number] 13:35:00 Test Item Value Reference Range Comments HEMOGLOBIN (BEAKER) (test yidk=758) 6.7 g/dL 12.0-15.0 HEMATOCRIT (BEAKER) (test ljql=868) 20.0 % 36.0-45.0 SODIUM NA-STAT [id number] 13:35:00 Test Item Value Reference Range Comments SODIUM (BEAKER) (test qaqg=547) 133 meq/L 135-148 POTASSIUM-STAT [id number] 13:34:00 Test Item Value Reference Range Comments POTASSIUM (BEAKER) (test kzzm=642) 4.2 meq/L 3.6-5.5 BLOOD GAS, [id number] 13:16:00 Test Item Value Reference Range Comments PH ARTERIAL (BEAKER) (test cobz=927) 7.42 7.35-7.45 PCO2 ARTERIAL (BEAKER) (test oyng=300) 34 mmHg 35-45 PO2 ARTERIAL (BEAKER) (test hzrk=058) 375 mmHg 80-90 O2 SATURATION ARTERIAL (BEAKER) (test ugju=062) 99.8 % 96.0-97.0 HCO3 ARTERIAL (BEAKER) (test ejca=892) 23 mmol/L 21-29 BASE EXCESS ARTERIAL (BEAKER) (test wsql=016) -2.5 mmol/L -2.0-3.0 PATIENT TEMPERATURE (BEAKER) (test hvam=5205) 31.5 C FIO2 (BEAKER) (test bykt=2761) 80.0 % SODIUM NA-STAT [id number] 13:16:00 Test Item Value Reference Range Comments SODIUM (BEAKER) (test xfus=622) 133 meq/L 135-148 HGB/HCT (H&H) - STAT [id number] 13:16:00 Test Item Value Reference Range Comments HEMOGLOBIN (BEAKER) (test arnj=291) 6.3 g/dL 12.0-15.0 HEMATOCRIT (BEAKER) (test ukjk=412) 19.0 % 36.0-45.0 CALCIUM, [id number] 13:15:00 Test Item Value Reference Range Comments CALCIUM IONIZED (BEAKER) (test kofs=013) 0.98 mmol/L 1.12-1.27 PH, BLOOD (BEAKER) (test czyq=5832) 7.34 BLOOD GAS, [id number] 13:15:00 Test Item Value Reference Range Comments PH VENOUS (BEAKER) (test bxof=881) 7.39 7.32-7.42 PCO2 VENOUS (BEAKER) (test dxmc=046) 38 mmHg 41-51 PO2 VENOUS (BEAKER) (test rivv=055) 43 mmHg 25-40 O2 SATURATION VENOUS (BEAKER) (test njta=461) 90.0 % 40.0-70.0 HCO3 VENOUS (BEAKER) (test flvp=080) 24 mmol/L 21-29 BASE EXCESS VENOUS (BEAKER) (test hyno=630) -2.1 mmol/L -2.0-3.0 PATIENT TEMPERATURE (BEAKER) (test sdth=5786) 31.5 C FIO2 (BEAKER) (test vqvc=3960) 80.0 % GLUCOSE-STAT [id number] 13:14:00 Test Item Value Reference Range Comments GLUCOSE RANDOM (BEAKER) (test imit=246) 92 mg/dL 70-110 POTASSIUM-STAT [id number] 13:14:00 Test Item Value Reference Range Comments POTASSIUM (BEAKER) (test hdue=660) 3.9 meq/L 3.6-5.5 BLOOD GAS, [id number] 10:54:00 Test Item Value Reference Range Comments PH ARTERIAL (BEAKER) (test pihc=951) 7.41 7.35-7.45 PCO2 ARTERIAL (BEAKER) (test irti=308) 39 mmHg 35-45 PO2 ARTERIAL (BEAKER) (test rrxf=622) 254 mmHg 80-90 O2 SATURATION ARTERIAL (BEAKER) (test tfll=620) 99.6 % 96.0-97.0 HCO3 ARTERIAL (BEAKER) (test tomv=222) 25 mmol/L 21-29 BASE EXCESS ARTERIAL (BEAKER) (test twre=489) -0.3 mmol/L -2.0-3.0 PATIENT TEMPERATURE (BEAKER) (test wqwn=8395) 35.4 C FIO2 (BEAKER) (test upbx=0657) 100.0 % HGB/HCT (H&H) - STAT [id number] 10:54:00 Test Item Value Reference Range Comments HEMOGLOBIN (BEAKER) (test oosj=054) 9.3 g/dL 12.0-15.0 HEMATOCRIT (BEAKER) (test llbe=032) 27.0 % 36.0-45.0 SODIUM NA-STAT [id number] 10:54:00 Test Item Value Reference Range Comments SODIUM (BEAKER) (test lehr=195) 132 meq/L 135-148 GLUCOSE-STAT [id number] 10:52:00 Test Item Value Reference Range Comments GLUCOSE RANDOM (BEAKER) (test bpcp=909) 94 mg/dL 70-110 POTASSIUM-STAT [id number] 10:52:00 Test Item Value Reference Range Comments POTASSIUM (BEAKER) (test sxzv=015) 4.0 meq/L 3.6-5.5 HEMOGLOBIN [id number] 09:50:00 Test Item Value Reference Range Comments HEMOGLOBIN A1C (BEAKER) (test vzye=484) 10.6 % 4.3-6.1 PLATELET AGGREGATION: FUNCTION [id number] 08:27:00 Test Item Value Reference Range Comments WEAK ADP RESULT(BEAKER) (test 63 % 60-91 hrzo=8518) PLATELET FUNCTION SCREEN 60-100% indicates normal INTERP (BEAKER) (test platelet function szef=1175) [id number] (BEAKER) Toshia Post MD (electronic (test bsuu=4830) signature) PLATELET COUNT AGG (BEAKER) 198 K/CU MM 150-450 (test ustp=5266) for patients on clopidogrel in past two weeksPOCT-GLUCOSE [id number] 08:11: 00 Test Item Value Reference Range Comments POC-GLUCOSE METER (BEAKER) 116 mg/dL 70-110 TESTED AT [facility] [address] [place] [address] (test rsmm=7497) [facility] [address] [id number] 07:10:00 Test Item Value Reference Range Comments PHOSPHORUS (BEAKER) (test grnj=422) 4.5 mg/dL 2.3-4.7 [id number] 07:10:00 Test Item Value Reference Range Comments MAGNESIUM (BEAKER) (test glcl=067) 2.1 mg/dL 1.6-2.6 BASIC METABOLIC [id number] 07:10:00 Test Item Value Reference Range Comments SODIUM (BEAKER) (test 135 meq/L 136-145 noub=345) POTASSIUM (BEAKER) (test 4.4 meq/L 3.5-5.1 rcpx=435) CHLORIDE (BEAKER) (test 106 meq/L 98-107 byjy=324) CO2 (BEAKER) (test 23 meq/L 22-29 uilk=775) BLOOD UREA NITROGEN 40 mg/dL 7-21 (BEAKER) (test dory=005) CREATININE (BEAKER) (test 1.67 mg/dL 0.57-1.25 gudw=904) GLUCOSE RANDOM (BEAKER) 107 mg/dL 70-105 (test rraq=973) CALCIUM (BEAKER) (test 8.3 mg/dL 8.4-10.2 crzz=894) EGFR (BEAKER) (test 31 mL/min/1.73 sq m ESTIMATED GFR IS NOT eaox=2428) ACCURATE CREATININE CLEARANCE IN PREDICTING GLOMERULAR FILTRATION RATE. ESTIMATED GFR IS NOT APPLICABLE FOR DIALYSIS PATIENTS. B-TYPE NATRIURETIC FACTOR (BNP)2017-05-20 06:56:00 Test Item Value Reference Range Comments B-TYPE NATRIURETIC PEPTIDE (BEAKER) (test 552 pg/mL 0-100 byto=338) CBC W/PLT COUNT & AUTO [id number] 06:46:00 Test Item Value Reference Range Comments WHITE BLOOD CELL COUNT (BEAKER) (test tpba=510) 6.2 K/ L 3.5-10.5 RED BLOOD CELL COUNT (BEAKER) (test kbvf=071) 3.56 M/ L 3.93-5.22 HEMOGLOBIN (BEAKER) (test sebv=240) 9.1 GM/DL 11.2-15.7 HEMATOCRIT (BEAKER) (test gelq=907) 29.5 % 34.1-44.9 MEAN CORPUSCULAR VOLUME (BEAKER) (test wcmk=168) 82.9 fL 79.4-94.8 MEAN CORPUSCULAR HEMOGLOBIN (BEAKER) (test 25.6 pg 25.6-32.2 hime=636) MEAN CORPUSCULAR HEMOGLOBIN CONC (BEAKER) (test 30.8 GM/DL 32.2-35.5 yrmh=562) RED CELL DISTRIBUTION WIDTH (BEAKER) (test 14.4 % 11.7-14.4 trni=970) PLATELET COUNT (BEAKER) (test aabk=186) 222 K/CU MM 150-450 MEAN PLATELET VOLUME (BEAKER) (test xigo=118) 10.5 fL 9.4-12.3 NUCLEATED RED BLOOD CELLS (BEAKER) (test 0 /100 WBC 0-0 hlil=151) NEUTROPHILS RELATIVE PERCENT (BEAKER) (test 47 % rqbv=211) LYMPHOCYTES RELATIVE PERCENT (BEAKER) (test 39 % nyyq=814) MONOCYTES RELATIVE PERCENT (BEAKER) (test 8 % nmfx=391) EOSINOPHILS RELATIVE PERCENT (BEAKER) (test 5 % nmoy=716) BASOPHILS RELATIVE PERCENT (BEAKER) (test 1 % wjyg=274) NEUTROPHILS ABSOLUTE COUNT (BEAKER) (test 2.90 K/ L 1.56-6.13 vxoy=085) LYMPHOCYTES ABSOLUTE COUNT (BEAKER) (test 2.37 K/ L 1.18-3.74 mmuj=403) MONOCYTES ABSOLUTE COUNT (BEAKER) (test 0.49 K/ L 0.24-0.36 xyfd=565) EOSINOPHILS ABSOLUTE COUNT (BEAKER) (test 0.30 K/ L 0.04-0.36 dgzd=014) BASOPHILS ABSOLUTE COUNT (BEAKER) (test 0.08 K/ L 0.01-0.08 vztp=178) IMMATURE GRANULOCYTES-RELATIVE PERCENT (BEAKER) 0 % 0-1 (test vrsq=2651) CALCIUM, [id number] 06:40:00 Test Item Value Reference Range Comments CALCIUM IONIZED (BEAKER) (test orzf=757) 1.06 mmol/L 1.12-1.27 PH, BLOOD (BEAKER) (test buuz=3506) 7.39 POCT-GLUCOSE [id number] 23:22:00 Test Item Value Reference Range Comments POC-GLUCOSE METER (BEAKER) 165 mg/dL 70-110 TESTED AT [facility] [address] [facility] (test tbdg=7305) [facility] [address] URINE PROTEIN ELECTROPHORESIS, [id number] 18:02:00 Test Item Value Reference Range Comments PROTEIN, URINE (BEAKER) (test 305 mg/dL 0-14 kleb=3806) ALBUMIN URINE ELP (BEAKER) 70.9 % (test gqcl=5552) GAMMA GLOBULIN URINE (BEAKER) 29.1 % (test mpdr=9749) UPEP, [id number] (BEAKER) (test No monoclonal bands detected. wuns=9468) [id number] (BEAKER) Rocio Galindo MD (test vdyj=3050) (electronic signature) PROTEIN ELECTROPHORESIS, [id number] 17:57:00 Test Item Value Reference Range Comments ALBUMIN FRACTION (BEAKER) 2.5 g/dL 3.5-5.5 (test ccpq=740) ALPHA 1 FRACTION (BEAKER) 0.3 g/dL 0.2-0.4 (test zjfz=563) ALPHA 2 FRACTION (BEAKER) 0.9 g/dL 0.5-0.9 (test ixcv=488) BETA FRACTION (BEAKER) (test 0.8 g/dL 0.6-1.1 tyiu=362) GAMMA GLOBULIN FRACTION 1.0 g/dL 0.7-1.7 (BEAKER) (test cfny=264) INTERPRETATION-119 (BEAKER) Decreased albumin with (test nqml=5544) concurrent relative increases in all globulin fractions. No monoclonal bands detected. [id number] (BEAKER) Rocio Galindo MD (test fety=8006) (electronic signature) PROTEIN TOTAL SERUM, SPEP 5.5 gm/dL 6.0-8.3 (BEAKER) (test qulq=6041) POCT-GLUCOSE [id number] 17:15:00 Test Item Value Reference Range Comments POC-GLUCOSE METER (BEAKER) 209 mg/dL 70-110 TESTED AT [facility] [address] [facility] (test epnz=8214) [facility] [address] BLOOD GAS, [id number] 15:54:00 Test Item Value Reference Range Comments PH ARTERIAL (BEAKER) (test ozks=068) 7.45 7.35-7.45 PCO2 ARTERIAL (BEAKER) (test awoo=861) 38 mmHg 35-45 PO2 ARTERIAL (BEAKER) (test aoxa=134) 69 mmHg 80-90 O2 SATURATION ARTERIAL (BEAKER) (test vxnt=842) 94.5 % 96.0-97.0 HCO3 ARTERIAL (BEAKER) (test umzn=647) 25 mmol/L 21-29 BASE EXCESS ARTERIAL (BEAKER) (test pmsx=533) 1.3 mmol/L -2.0-3.0 PATIENT TEMPERATURE (BEAKER) (test nniv=2430) 37.0 C FIO2 (BEAKER) (test stvv=8811) 36.0 % RAD, CHEST, 1 VIEW, NON [id number] 14:07:00Reason for exam:->SOB, hypoxemiaShould this be performed [...] with mild interstitial edema. Signed: Eder Cespedes MDReport Verified Date/Time: 2017 14:07:07 Reading Location:[facility] [id number] Consult Reading Room POCT- GLUCOSE [id number] 11:26:00 Test Item Value Reference Range Comments POC-GLUCOSE METER (BEAKER) 262 mg/dL 70-110 TESTED AT [address] (test yveh=8554) [facility] [address] POCT-GLUCOSE [id number] 07:37:00 Test Item Value Reference Range Comments POC-GLUCOSE METER (BEAKER) 170 mg/dL 70-110 TESTED AT [address] (test lrga=4377) [facility] [address] CALCIUM, [id number] 06:06:00 Test Item Value Reference Range Comments CALCIUM IONIZED (BEAKER) (test fcps=278) 1.05 mmol/L 1.12-1.27 PH, BLOOD (BEAKER) (test fpxb=4399) 7.41 [id number] 05:38:00 Test Item Value Reference Range Comments PHOSPHORUS (BEAKER) (test sisc=970) 3.9 mg/dL 2.3-4.7 [id number] 05:38:00 Test Item Value Reference Range Comments MAGNESIUM (BEAKER) (test wpai=564) 2.2 mg/dL 1.6-2.6 BASIC METABOLIC [id number] 05:38:00 Test Item Value Reference Range Comments SODIUM (BEAKER) (test 135 meq/L 136-145 wail=233) POTASSIUM (BEAKER) (test 4.5 meq/L 3.5-5.1 usqa=193) CHLORIDE (BEAKER) (test 105 meq/L 98-107 qdtn=053) CO2 (BEAKER) (test 24 meq/L 22-29 qgmf=720) BLOOD UREA NITROGEN 41 mg/dL 7-21 (BEAKER) (test ynlm=244) CREATININE (BEAKER) (test 1.74 mg/dL 0.57-1.25 ccgw=025) GLUCOSE RANDOM (BEAKER) 174 mg/dL 70-105 (test oxlx=667) CALCIUM (BEAKER) (test 8.4 mg/dL 8.4-10.2 zjgu=956) EGFR (BEAKER) (test 30 mL/min/1.73 sq m ESTIMATED GFR IS NOT seos=0858) ACCURATE CREATININE CLEARANCE IN PREDICTING GLOMERULAR FILTRATION RATE. ESTIMATED GFR IS NOT APPLICABLE FOR DIALYSIS PATIENTS. CBC W/PLT COUNT & AUTO [id number] 05:09:00 Test Item Value Reference Range Comments WHITE BLOOD CELL COUNT (BEAKER) (test uqln=108) 8.5 K/ L 3.5-10.5 RED BLOOD CELL COUNT (BEAKER) (test nayf=668) 3.54 M/ L 3.93-5.22 HEMOGLOBIN (BEAKER) (test nvjp=012) 9.1 GM/DL 11.2-15.7 HEMATOCRIT (BEAKER) (test auim=929) 29.1 % 34.1-44.9 MEAN CORPUSCULAR VOLUME (BEAKER) (test kavh=563) 82.2 fL 79.4-94.8 MEAN CORPUSCULAR HEMOGLOBIN (BEAKER) (test 25.7 pg 25.6-32.2 dfnj=352) MEAN CORPUSCULAR HEMOGLOBIN CONC (BEAKER) (test 31.3 GM/DL 32.2-35.5 yapz=343) RED CELL DISTRIBUTION WIDTH (BEAKER) (test 14.5 % 11.7-14.4 mhjj=843) PLATELET COUNT (BEAKER) (test bptl=526) 201 K/CU MM 150-450 MEAN PLATELET VOLUME (BEAKER) (test lfzy=063) 10.7 fL 9.4-12.3 NUCLEATED RED BLOOD CELLS (BEAKER) (test 0 /100 WBC 0-0 amxa=861) NEUTROPHILS RELATIVE PERCENT (BEAKER) (test 56 % nwpf=605) LYMPHOCYTES RELATIVE PERCENT (BEAKER) (test 32 % wbcj=900) MONOCYTES RELATIVE PERCENT (BEAKER) (test 7 % entv=291) EOSINOPHILS RELATIVE PERCENT (BEAKER) (test 4 % jlzc=195) BASOPHILS RELATIVE PERCENT (BEAKER) (test 1 % zhir=907) NEUTROPHILS ABSOLUTE COUNT (BEAKER) (test 4.80 K/ L 1.56-6.13 ofrv=669) LYMPHOCYTES ABSOLUTE COUNT (BEAKER) (test 2.73 K/ L 1.18-3.74 kkqo=341) MONOCYTES ABSOLUTE COUNT (BEAKER) (test 0.62 K/ L 0.24-0.36 kbrb=953) EOSINOPHILS ABSOLUTE COUNT (BEAKER) (test 0.30 K/ L 0.04-0.36 ktfq=310) BASOPHILS ABSOLUTE COUNT (BEAKER) (test 0.06 K/ L 0.01-0.08 uuyw=613) IMMATURE GRANULOCYTES-RELATIVE PERCENT (BEAKER) 0 % 0-1 (test gyhu=7576) POCT-GLUCOSE [id number] 22:08:00 Test Item Value Reference Range Comments POC-GLUCOSE METER (BEAKER) 263 mg/dL 70-110 TESTED AT [address] (test lzdh=2329) [place] [id number] POCT-GLUCOSE [id number] 17:20:00 Test Item Value Reference Range Comments POC-GLUCOSE METER (BEAKER) 233 mg/dL 70-110 TESTED AT [address] (test xjay=3276) [place] [id number] POCT-GLUCOSE [id number] 08:28:00 Test Item Value Reference Range Comments POC-GLUCOSE METER (BEAKER) 154 mg/dL 70-110 TESTED AT [address] (test lagh=5159) [facility] [address] BASIC METABOLIC [id number] 06:41:00 Test Item Value Reference Range Comments SODIUM (BEAKER) (test 135 meq/L 136-145 noxi=013) POTASSIUM (BEAKER) (test 4.6 meq/L 3.5-5.1 ohly=778) CHLORIDE (BEAKER) (test 104 meq/L 98-107 hnpw=766) CO2 (BEAKER) (test 23 meq/L 22-29 kicm=395) BLOOD UREA NITROGEN 39 mg/dL 7-21 (BEAKER) (test spsz=772) CREATININE (BEAKER) (test 1.77 mg/dL 0.57-1.25 mwul=156) GLUCOSE RANDOM (BEAKER) 173 mg/dL 70-105 (test wcvo=081) CALCIUM (BEAKER) (test 8.6 mg/dL 8.4-10.2 ikfh=334) EGFR (BEAKER) (test 29 mL/min/1.73 sq m ESTIMATED GFR IS NOT fybs=5089) ACCURATE CREATININE CLEARANCE IN PREDICTING GLOMERULAR FILTRATION RATE. ESTIMATED GFR IS NOT APPLICABLE FOR DIALYSIS PATIENTS. [id number] 06:35:00 Test Item Value Reference Range Comments PHOSPHORUS (BEAKER) (test astc=922) 4.1 mg/dL 2.3-4.7 [id number] 06:35:00 Test Item Value Reference Range Comments MAGNESIUM (BEAKER) (test uvtv=365) 2.1 mg/dL 1.6-2.6 CALCIUM, [id number] 06:22:00 Test Item Value Reference Range Comments CALCIUM IONIZED (BEAKER) (test jcwj=637) 1.10 mmol/L 1.12-1.27 PH, BLOOD (BEAKER) (test pwir=1030) 7.38 CBC W/PLT COUNT & AUTO [id number] 06:04:00 Test Item Value Reference Range Comments WHITE BLOOD CELL COUNT (BEAKER) (test quhy=695) 9.3 K/ L 3.5-10.5 RED BLOOD CELL COUNT (BEAKER) (test ajvm=661) 4.15 M/ L 3.93-5.22 HEMOGLOBIN (BEAKER) (test iyuu=642) 10.6 GM/DL 11.2-15.7 HEMATOCRIT (BEAKER) (test gaup=567) 34.2 % 34.1-44.9 MEAN CORPUSCULAR VOLUME (BEAKER) (test zmba=853) 82.4 fL 79.4-94.8 MEAN CORPUSCULAR HEMOGLOBIN (BEAKER) (test 25.5 pg 25.6-32.2 qppt=525) MEAN CORPUSCULAR HEMOGLOBIN CONC (BEAKER) (test 31.0 GM/DL 32.2-35.5 kned=824) RED CELL DISTRIBUTION WIDTH (BEAKER) (test 14.6 % 11.7-14.4 zlyt=320) PLATELET COUNT (BEAKER) (test rboj=875) 183 K/CU MM 150-450 MEAN PLATELET VOLUME (BEAKER) (test gsmp=952) 11.0 fL 9.4-12.3 NUCLEATED RED BLOOD CELLS (BEAKER) (test 0 /100 WBC 0-0 deqp=129) NEUTROPHILS RELATIVE PERCENT (BEAKER) (test 66 % xeef=949) LYMPHOCYTES RELATIVE PERCENT (BEAKER) (test 24 % kazn=602) MONOCYTES RELATIVE PERCENT (BEAKER) (test 7 % aysm=193) EOSINOPHILS RELATIVE PERCENT (BEAKER) (test 3 % knsp=181) BASOPHILS RELATIVE PERCENT (BEAKER) (test 1 % dltc=135) NEUTROPHILS ABSOLUTE COUNT (BEAKER) (test 6.15 K/ L 1.56-6.13 wuyi=967) LYMPHOCYTES ABSOLUTE COUNT (BEAKER) (test 2.20 K/ L 1.18-3.74 vfks=998) MONOCYTES ABSOLUTE COUNT (BEAKER) (test 0.62 K/ L 0.24-0.36 pdix=294) EOSINOPHILS ABSOLUTE COUNT (BEAKER) (test 0.24 K/ L 0.04-0.36 ypwk=913) BASOPHILS ABSOLUTE COUNT (BEAKER) (test 0.06 K/ L 0.01-0.08 hvmk=738) IMMATURE GRANULOCYTES-RELATIVE PERCENT (BEAKER) 0 % 0-1 (test rcex=7801) POCT-GLUCOSE [id number] 03:44:00 Test Item Value Reference Range Comments POC-GLUCOSE METER (BEAKER) 220 mg/dL 70-110 TESTED AT [address] (test qciv=8749) [place] [address] POCT-GLUCOSE [id number] 18:27:00 Test Item Value Reference Range Comments POC-GLUCOSE METER (BEAKER) 256 mg/dL 70-110 TESTED AT [address] (test erma=7420) [place] [address] POCT-GLUCOSE [id number] 15:45:00 Test Item Value Reference Range Comments POC-GLUCOSE METER (BEAKER) 278 mg/dL 70-110 TESTED AT [address] (test jqeq=4287) [place] [address] POCT-GLUCOSE [id number] 13:22:00 Test Item Value Reference Range Comments POC-GLUCOSE METER (BEAKER) 278 mg/dL 70-110 TESTED AT [address] (test ioxt=7410) [place] [address] PLATELET AGGREGATION: FUNCTION [id number] 13:18:00 Test Item Value Reference Range Comments WEAK ADP RESULT(BEAKER) (test 66 % 60-91 vizm=2517) PLATELET FUNCTION SCREEN 60-100% indicates normal INTERP (BEAKER) (test platelet function rfha=2455) [id number] (BEAKER) Rigoberto Duenas MD (electronic (test fpgs=1801) signature) PLATELET COUNT AGG (BEAKER) 204 K/CU MM 150-450 (test qajm=4580) POCT-GLUCOSE [id number] 08:27:00 Test Item Value Reference Range Comments POC-GLUCOSE METER (BEAKER) 189 mg/dL 70-110 TESTED AT [facility] [address] [facility] (test qbqa=7444) [place] [address] CALCIUM, [id number] 06:12:00 Test Item Value Reference Range Comments CALCIUM IONIZED (BEAKER) (test ujmf=904) 1.07 mmol/L 1.12-1.27 PH, BLOOD (BEAKER) (test ptbm=0494) 7.36 [id number] 05:43:00 Test Item Value Reference Range Comments PHOSPHORUS (BEAKER) (test vnnr=229) 3.6 mg/dL 2.3-4.7 [id number] 05:43:00 Test Item Value Reference Range Comments MAGNESIUM (BEAKER) (test jyxz=889) 2.1 mg/dL 1.6-2.6 BASIC METABOLIC [id number] 05:43:00 Test Item Value Reference Range Comments SODIUM (BEAKER) (test 137 meq/L 136-145 jgyz=564) POTASSIUM (BEAKER) (test 4.7 meq/L 3.5-5.1 hjxh=398) CHLORIDE (BEAKER) (test 107 meq/L 98-107 chse=721) CO2 (BEAKER) (test 24 meq/L 22-29 pvzu=655) BLOOD UREA NITROGEN 38 mg/dL 7-21 (BEAKER) (test eolt=586) CREATININE (BEAKER) (test 1.72 mg/dL 0.57-1.25 pxyo=932) GLUCOSE RANDOM (BEAKER) 198 mg/dL 70-105 (test khew=903) CALCIUM (BEAKER) (test 8.3 mg/dL 8.4-10.2 hqak=598) EGFR (BEAKER) (test 30 mL/min/1.73 sq m ESTIMATED GFR IS NOT cokm=4597) ACCURATE CREATININE CLEARANCE IN PREDICTING GLOMERULAR FILTRATION RATE. ESTIMATED GFR IS NOT APPLICABLE FOR DIALYSIS PATIENTS. CBC W/PLT COUNT & AUTO [id number] 05:05:00 Test Item Value Reference Range Comments WHITE BLOOD CELL COUNT (BEAKER) (test hrpl=887) 8.6 K/ L 3.5-10.5 RED BLOOD CELL COUNT (BEAKER) (test jqjw=805) 4.20 M/ L 3.93-5.22 HEMOGLOBIN (BEAKER) (test oytd=344) 10.7 GM/DL 11.2-15.7 HEMATOCRIT (BEAKER) (test mjew=158) 34.7 % 34.1-44.9 MEAN CORPUSCULAR VOLUME (BEAKER) (test xylb=522) 82.6 fL 79.4-94.8 MEAN CORPUSCULAR HEMOGLOBIN (BEAKER) (test 25.5 pg 25.6-32.2 wueb=387) MEAN CORPUSCULAR HEMOGLOBIN CONC (BEAKER) (test 30.8 GM/DL 32.2-35.5 fqpo=777) RED CELL DISTRIBUTION WIDTH (BEAKER) (test 14.7 % 11.7-14.4 xbpx=001) PLATELET COUNT (BEAKER) (test uskg=043) 198 K/CU MM 150-450 MEAN PLATELET VOLUME (BEAKER) (test leig=584) 11.1 fL 9.4-12.3 NUCLEATED RED BLOOD CELLS (BEAKER) (test 0 /100 WBC 0-0 bijh=720) NEUTROPHILS RELATIVE PERCENT (BEAKER) (test 63 % tcay=734) LYMPHOCYTES RELATIVE PERCENT (BEAKER) (test 28 % choq=467) MONOCYTES RELATIVE PERCENT (BEAKER) (test 6 % etxa=358) EOSINOPHILS RELATIVE PERCENT (BEAKER) (test 3 % ckeg=195) BASOPHILS RELATIVE PERCENT (BEAKER) (test 1 % tvgb=017) NEUTROPHILS ABSOLUTE COUNT (BEAKER) (test 5.41 K/ L 1.56-6.13 mzss=657) LYMPHOCYTES ABSOLUTE COUNT (BEAKER) (test 2.37 K/ L 1.18-3.74 iywq=079) MONOCYTES ABSOLUTE COUNT (BEAKER) (test 0.50 K/ L 0.24-0.36 qtzq=530) EOSINOPHILS ABSOLUTE COUNT (BEAKER) (test 0.27 K/ L 0.04-0.36 ayju=517) BASOPHILS ABSOLUTE COUNT (BEAKER) (test 0.06 K/ L 0.01-0.08 ykcj=042) IMMATURE GRANULOCYTES-RELATIVE PERCENT (BEAKER) 0 % 0-1 (test maee=1119) POCT-GLUCOSE [id number] 21:32:00 Test Item Value Reference Range Comments POC-GLUCOSE METER (BEAKER) 176 mg/dL 70-110 TESTED AT [address] (test cujk=2318) [place] [address] POCT-GLUCOSE [id number] 20:27:00 Test Item Value Reference Range Comments POC-GLUCOSE METER (BEAKER) 161 mg/dL 70-110 TESTED AT [address] (test ejhq=9881) [place] [address] POCT-GLUCOSE [id number] 18:23:00 Test Item Value Reference Range Comments POC-GLUCOSE METER (BEAKER) 185 mg/dL 70-110 TESTED AT [address] (test asgh=2260) [place] [address] POCT-GLUCOSE [id number] 13:26:00 Test Item Value Reference Range Comments POC-GLUCOSE METER (BEAKER) 282 mg/dL 70-110 TESTED AT [address] (test zzpl=4948) [place] [address] URINE [id number] 10:12:00 Test Item Value Reference Range Comments CULTURE (BEAKER) (test vphc=4925) >100,000 col/mL skin todd POCT-GLUCOSE [id number] 09:01:00 Test Item Value Reference Range Comments POC-GLUCOSE METER (BEAKER) 268 mg/dL 70-110 TESTED AT [address] (test ypum=6558) [place] [address] CALCIUM, [id number] 05:39:00 Test Item Value Reference Range Comments CALCIUM IONIZED (BEAKER) (test cpiy=074) 0.84 mmol/L 1.12-1.27 PH, BLOOD (BEAKER) (test spgv=0144) 7.35 BASIC METABOLIC [id number] 05:07:00 Test Item Value Reference Range Comments SODIUM (BEAKER) (test 135 meq/L 136-145 vzdb=441) POTASSIUM (BEAKER) (test 4.9 meq/L 3.5-5.1 weam=233) CHLORIDE (BEAKER) (test 106 meq/L 98-107 upio=237) CO2 (BEAKER) (test 22 meq/L 22-29 zcja=173) BLOOD UREA NITROGEN 43 mg/dL 7-21 (BEAKER) (test pzuv=227) CREATININE (BEAKER) (test 2.00 mg/dL 0.57-1.25 phwb=426) GLUCOSE RANDOM (BEAKER) 161 mg/dL 70-105 (test ngyu=223) CALCIUM (BEAKER) (test 8.2 mg/dL 8.4-10.2 jmnq=550) EGFR (BEAKER) (test 25 mL/min/1.73 sq m ESTIMATED GFR IS NOT iane=1191) ACCURATE CREATININE CLEARANCE IN PREDICTING GLOMERULAR FILTRATION RATE. ESTIMATED GFR IS NOT APPLICABLE FOR DIALYSIS PATIENTS. [id number] 05:06:00 Test Item Value Reference Range Comments PHOSPHORUS (BEAKER) (test nvbp=098) 3.2 mg/dL 2.3-4.7 [id number] 05:06:00 Test Item Value Reference Range Comments MAGNESIUM (BEAKER) (test tgfd=240) 2.3 mg/dL 1.6-2.6 CBC W/PLT COUNT & AUTO [id number] 04:42:00 Test Item Value Reference Range Comments WHITE BLOOD CELL COUNT (BEAKER) (test qtai=714) 9.5 K/ L 3.5-10.5 RED BLOOD CELL COUNT (BEAKER) (test idmh=357) 4.17 M/ L 3.93-5.22 HEMOGLOBIN (BEAKER) (test nuoj=941) 10.5 GM/DL 11.2-15.7 HEMATOCRIT (BEAKER) (test cuvs=187) 34.2 % 34.1-44.9 MEAN CORPUSCULAR VOLUME (BEAKER) (test vuzh=486) 82.0 fL 79.4-94.8 MEAN CORPUSCULAR HEMOGLOBIN (BEAKER) (test 25.2 pg 25.6-32.2 sanz=109) MEAN CORPUSCULAR HEMOGLOBIN CONC (BEAKER) (test 30.7 GM/DL 32.2-35.5 ldtm=125) RED CELL DISTRIBUTION WIDTH (BEAKER) (test 14.6 % 11.7-14.4 flmr=548) PLATELET COUNT (BEAKER) (test qvjs=846) 177 K/CU MM 150-450 MEAN PLATELET VOLUME (BEAKER) (test nqln=036) 11.1 fL 9.4-12.3 NUCLEATED RED BLOOD CELLS (BEAKER) (test 0 /100 WBC 0-0 tstj=254) NEUTROPHILS RELATIVE PERCENT (BEAKER) (test 55 % bsug=339) LYMPHOCYTES RELATIVE PERCENT (BEAKER) (test 36 % zyeu=337) MONOCYTES RELATIVE PERCENT (BEAKER) (test 6 % pqgc=839) EOSINOPHILS RELATIVE PERCENT (BEAKER) (test 2 % cnml=758) BASOPHILS RELATIVE PERCENT (BEAKER) (test 1 % ywvf=730) NEUTROPHILS ABSOLUTE COUNT (BEAKER) (test 5.20 K/ L 1.56-6.13 cuhi=278) LYMPHOCYTES ABSOLUTE COUNT (BEAKER) (test 3.37 K/ L 1.18-3.74 effg=254) MONOCYTES ABSOLUTE COUNT (BEAKER) (test 0.59 K/ L 0.24-0.36 qlcv=028) EOSINOPHILS ABSOLUTE COUNT (BEAKER) (test 0.21 K/ L 0.04-0.36 rwgo=904) BASOPHILS ABSOLUTE COUNT (BEAKER) (test 0.07 K/ L 0.01-0.08 ppdj=786) IMMATURE GRANULOCYTES-RELATIVE PERCENT (BEAKER) 0 % 0-1 (test dtfd=9938) RHEUMATOID FACTOR AB, REFLEX TO [id number] 01:52:00 Test Item Value Reference Range Comments RHEUMATOID FACTOR (BEAKER) (test xzvq=240) Negative POCT-GLUCOSE [id number] 21:57:00 Test Item Value Reference Range Comments POC-GLUCOSE METER (BEAKER) 105 mg/dL 70-110 TESTED AT [facility] [address] [facility] (test dzqo=3753) [facility] [address] POCT-GLUCOSE [id number] 18:11:00 Test Item Value Reference Range Comments POC-GLUCOSE METER (BEAKER) 312 mg/dL 70-110 Notified GUILHERME PIERRE/TESTED AT [facility] (test utsj=5994) [address] [place] [address] PET, CARDIAC PERFUSION MULTIPLE STUDIES, REST AND [id number] 16:28: 00Reason for exam:->pvcs, known cadFINAL REPORT PROCEDURE: Rest/Stress MYOCARDIAL PERFUSION PET with regadenoson\XA9\ CPT CODE: 48594 INDICATION: Defined extent and severity of known [...] 23% . LVEF at stress is 36%. Rn Wellness CT images revealed a right pleural effusion [...] pericardial effusions. 7. No previous [facility] study for comparison. NONINVASIVE RISK STRATIFICATION: The above findings are considered high risk (>3% annual mortality rate) based on the following criteria: - Severe resting left ventricular dysfunction (LVEF 35%)- Stress-induced large perfusion defect ( particularly if anterior)(JACC. 2012;59(9):857-81.) Signed: Last Lopez MDReport Verified Date/Time: 05/15/2017 16:28:12 Reading Location: [address] [facility] Med ReadingRoom RAD, CHEST, 1 VIEW, NON [id number] 15:56:00Reason for exam:->SOBShould this be performed at the bedside?->YesFINAL REPORT Comparison: 05/14/2017 TECHNIQUE: Single view of the chest FINDINGS: There is a small right pleural effusion with nonspecific airspace disease. This is unchanged. Left lung is grossly clear. Cardiac silhouette is enlarged. IMPRESSION: 1. No acute cardiopulmonary disease. Signed : Sixto Monk MDReport Verified Date/Time: 05/15/2017 15:56:39 Reading Location : [facility] Radiology Reading Room POCT-GLUCOSE [id number] 12:54:00 Test Item Value Reference Range Comments POC-GLUCOSE METER (BEAKER) 308 mg/dL 70-110 Notified GUILHERME PIERRE/TESTED AT [facility] (test urht=2153) [address] [facility] [address] U/S, RENAL WITH [id number] 11:04:00Reason for exam:->tracy, htnShould this be performed [...] the resistive indices throughout. Signed : [facility] Verified Date/Time: 05/15/2017 11:04:01 Reading Location : [place] [id number] Ultrasound Reading Room ANA TITER AND [id number] 10:57:00 Test Item Value Reference Range Comments ROGER TITER (BEAKER) (test mpap=9602) :160 ROGER PATTERN (BEAKER) (test loya=1848) Speckled ANTI-NUCLEAR ANTIBODY (ROGER)2017-05-15 10:56:00 Test Item Value Reference Range Comments ANTI-NUCLEAR ANTIBODY (ROGER) (BEAKER) (test Positive Negative prex=500) CALCIUM, [id number] 06:00:00 Test Item Value Reference Range Comments CALCIUM IONIZED (BEAKER) (test imdm=763) 1.07 mmol/L 1.12-1.27 PH, BLOOD (BEAKER) (test mhvr=8090) 7.28 HEPATITIS PANEL, [id number] 05:01:00 Test Item Value Reference Range Comments HEPATITIS A IGM ANTIBODY (BEAKER) (test Nonreactive Nonreactive wlbo=045) HEPATITIS B CORE IGM ANTIBODY (BEAKER) (test Nonreactive Nonreactive xjec=156) HEPATITIS C ANTIBODY (BEAKER) (test zjrv=727) Nonreactive Nonreactive HEPATITIS B SURFACE ANTIGEN (2) (BEAKER) (test Nonreactive Nonreactive idsn=3376) BASIC METABOLIC [id number] 04:48:00 Test Item Value Reference Range Comments SODIUM (BEAKER) (test 135 meq/L 136-145 cqmw=714) POTASSIUM (BEAKER) (test 5.2 meq/L 3.5-5.1 puvq=620) CHLORIDE (BEAKER) (test 104 meq/L 98-107 bpks=932) CO2 (BEAKER) (test 22 meq/L 22-29 zebt=996) BLOOD UREA NITROGEN 46 mg/dL 7-21 (BEAKER) (test rzgt=900) CREATININE (BEAKER) (test 2.64 mg/dL 0.57-1.25 mhkh=601) GLUCOSE RANDOM (BEAKER) 176 mg/dL 70-105 (test skff=572) CALCIUM (BEAKER) (test 8.2 mg/dL 8.4-10.2 xnwl=192) EGFR (BEAKER) (test 18 mL/min/1.73 sq m ESTIMATED GFR IS NOT ixbt=9948) ACCURATE CREATININE CLEARANCE IN PREDICTING GLOMERULAR FILTRATION RATE. ESTIMATED GFR IS NOT APPLICABLE FOR DIALYSIS PATIENTS. URIC [id number] 04:41:00 Test Item Value Reference Range Comments URIC ACID (BEAKER) (test roiu=473) 10.3 mg/dL 2.6-7.2 [id number] 04:41:00 Test Item Value Reference Range Comments MAGNESIUM (BEAKER) (test xend=252) 2.0 mg/dL 1.6-2.6 [id number] 04:41:00 Test Item Value Reference Range Comments PHOSPHORUS (BEAKER) (test epnz=690) 4.2 mg/dL 2.3-4.7 COMPLEMENT COMPONENT [id number] 04:38:00 Test Item Value Reference Range Comments C4 COMPLEMENT (BEAKER) (test cxhr=650) 28 mg/dL 15-57 COMPLEMENT COMPONENT [id number] 04:38:00 Test Item Value Reference Range Comments C3 COMPLEMENT (BEAKER) (test xmga=241) 103 mg/dL 82-193 CBC W/PLT COUNT & AUTO [id number] 04:22:00 Test Item Value Reference Range Comments WHITE BLOOD CELL COUNT (BEAKER) (test uoom=287) 11.0 K/ L 3.5-10.5 RED BLOOD CELL COUNT (BEAKER) (test todt=321) 4.25 M/ L 3.93-5.22 HEMOGLOBIN (BEAKER) (test wmup=139) 10.6 GM/DL 11.2-15.7 HEMATOCRIT (BEAKER) (test elqg=721) 35.3 % 34.1-44.9 MEAN CORPUSCULAR VOLUME (BEAKER) (test ugvd=966) 83.1 fL 79.4-94.8 MEAN CORPUSCULAR HEMOGLOBIN (BEAKER) (test 24.9 pg 25.6-32.2 mtbz=059) MEAN CORPUSCULAR HEMOGLOBIN CONC (BEAKER) (test 30.0 GM/DL 32.2-35.5 wool=479) RED CELL DISTRIBUTION WIDTH (BEAKER) (test 14.5 % 11.7-14.4 ibyc=487) PLATELET COUNT (BEAKER) (test cgcg=265) 185 K/CU MM 150-450 MEAN PLATELET VOLUME (BEAKER) (test meaq=117) 10.9 fL 9.4-12.3 NUCLEATED RED BLOOD CELLS (BEAKER) (test 0 /100 WBC 0-0 pafp=261) NEUTROPHILS RELATIVE PERCENT (BEAKER) (test 61 % hrdi=940) LYMPHOCYTES RELATIVE PERCENT (BEAKER) (test 31 % xnrt=164) MONOCYTES RELATIVE PERCENT (BEAKER) (test 5 % gspd=520) EOSINOPHILS RELATIVE PERCENT (BEAKER) (test 2 % pfmp=841) BASOPHILS RELATIVE PERCENT (BEAKER) (test 1 % hids=442) NEUTROPHILS ABSOLUTE COUNT (BEAKER) (test 6.72 K/ L 1.56-6.13 pbna=751) LYMPHOCYTES ABSOLUTE COUNT (BEAKER) (test 3.35 K/ L 1.18-3.74 aecw=944) MONOCYTES ABSOLUTE COUNT (BEAKER) (test 0.59 K/ L 0.24-0.36 llzy=534) EOSINOPHILS ABSOLUTE COUNT (BEAKER) (test 0.21 K/ L 0.04-0.36 wbbt=304) BASOPHILS ABSOLUTE COUNT (BEAKER) (test 0.06 K/ L 0.01-0.08 tpkl=444) IMMATURE GRANULOCYTES-RELATIVE PERCENT (BEAKER) 0 % 0-1 (test qspq=7160) POCT-GLUCOSE [id number] 21:46:00 Test Item Value Reference Range Comments POC-GLUCOSE METER (BEAKER) 173 mg/dL 70-110 TESTED AT [address] (test pvzp=9193) [place] [address] POCT-GLUCOSE [id number] 21:46:00 Test Item Value Reference Range Comments POC-GLUCOSE METER (BEAKER) 154 mg/dL 70-110 TESTED AT [address] (test zbro=7468) [place] [address] POCT-GLUCOSE [id number] 18:17:00 Test Item Value Reference Range Comments POC-GLUCOSE METER (BEAKER) 175 mg/dL 70-110 TESTED AT [address] (test qnmp=0818) [place] [address] RAD, CHEST, 1 VIEW, NON [id number] 14:56:00Reason for exam:->SOBShould this be performed at the bedside?->YesFINAL REPORT INDICATION: SOB COMPARISON: May 13, 2017 TECHNIQUE: Chest radiograph, single view, portable technique. FINDINGS / IMPRESSION: Enlarged heart shadow, small rightpleural effusion, and pulmonary venous congestion, again demonstrated. No pneumothorax or consolidation. Osseous structures unremarkable. Signed: Satnam Jean MDReport Verified Date/Time: 05/14/2017 14:56:58 Reading Location: [facility] Mammo Reading Room POCT-GLUCOSE [id number] 12:18:00 Test Item Value Reference Range Comments POC-GLUCOSE METER (BEAKER) 313 mg/dL 70-110 TESTED AT [address] (test ebfb=3297) [place] [address] HIV-1 ANTIGEN WITH HIV-1/2 [id number] 12:07:00 Test Item Value Reference Range Comments HIV-1 ANTIGEN WITH HIV 1\T\2 ANTIBODY (2) Nonreactive Nonreactive (BEAKER) (test gpqf=1462) CALCIUM, [id number] 06:37:00 Test Item Value Reference Range Comments CALCIUM IONIZED (BEAKER) (test rwvm=256) 1.08 mmol/L 1.12-1.27 PH, BLOOD (BEAKER) (test dgdm=4495) 7.25 BASIC METABOLIC [id number] 06:26:00 Test Item Value Reference Range Comments SODIUM (BEAKER) (test 134 meq/L 136-145 rgeu=389) POTASSIUM (BEAKER) (test 5.1 meq/L 3.5-5.1 nvho=902) CHLORIDE (BEAKER) (test 103 meq/L 98-107 rxbt=206) CO2 (BEAKER) (test 25 meq/L 22-29 movu=884) BLOOD UREA NITROGEN 45 mg/dL 7-21 (BEAKER) (test xzim=681) CREATININE (BEAKER) (test 2.92 mg/dL 0.57-1.25 xpjh=354) GLUCOSE RANDOM (BEAKER) 163 mg/dL 70-105 (test wchl=458) CALCIUM (BEAKER) (test 8.1 mg/dL 8.4-10.2 cmuz=070) EGFR (BEAKER) (test 16 mL/min/1.73 sq m ESTIMATED GFR IS NOT dpvo=3405) ACCURATE CREATININE CLEARANCE IN PREDICTING GLOMERULAR FILTRATION RATE. ESTIMATED GFR IS NOT APPLICABLE FOR DIALYSIS PATIENTS. B-TYPE NATRIURETIC FACTOR (BNP)2017-05-14 06:26:00 Test Item Value Reference Range Comments B-TYPE NATRIURETIC PEPTIDE (BEAKER) (test 474 pg/mL 0-100 knur=999) [id number] 06:25:00 Test Item Value Reference Range Comments PHOSPHORUS (BEAKER) (test hmya=604) 5.7 mg/dL 2.3-4.7 [id number] 06:25:00 Test Item Value Reference Range Comments MAGNESIUM (BEAKER) (test ynsi=939) 1.5 mg/dL 1.6-2.6 CBC W/PLT COUNT & AUTO [id number] 06:07:00 Test Item Value Reference Range Comments WHITE BLOOD CELL COUNT (BEAKER) (test czvw=679) 8.9 K/ L 3.5-10.5 RED BLOOD CELL COUNT (BEAKER) (test wzmu=090) 4.32 M/ L 3.93-5.22 HEMOGLOBIN (BEAKER) (test uplu=618) 11.0 GM/DL 11.2-15.7 HEMATOCRIT (BEAKER) (test aude=881) 36.6 % 34.1-44.9 MEAN CORPUSCULAR VOLUME (BEAKER) (test dbno=055) 84.7 fL 79.4-94.8 MEAN CORPUSCULAR HEMOGLOBIN (BEAKER) (test 25.5 pg 25.6-32.2 obsq=674) MEAN CORPUSCULAR HEMOGLOBIN CONC (BEAKER) (test 30.1 GM/DL 32.2-35.5 odyh=726) RED CELL DISTRIBUTION WIDTH (BEAKER) (test 14.6 % 11.7-14.4 hkwq=186) PLATELET COUNT (BEAKER) (test fqto=624) 201 K/CU MM 150-450 MEAN PLATELET VOLUME (BEAKER) (test ktsy=523) 11.1 fL 9.4-12.3 NUCLEATED RED BLOOD CELLS (BEAKER) (test 0 /100 WBC 0-0 dzkq=313) NEUTROPHILS RELATIVE PERCENT (BEAKER) (test 55 % uxca=446) LYMPHOCYTES RELATIVE PERCENT (BEAKER) (test 36 % oofa=521) MONOCYTES RELATIVE PERCENT (BEAKER) (test 5 % spcm=844) EOSINOPHILS RELATIVE PERCENT (BEAKER) (test 3 % xiwn=334) BASOPHILS RELATIVE PERCENT (BEAKER) (test 1 % baiz=161) NEUTROPHILS ABSOLUTE COUNT (BEAKER) (test 4.85 K/ L 1.56-6.13 tipo=037) LYMPHOCYTES ABSOLUTE COUNT (BEAKER) (test 3.18 K/ L 1.18-3.74 pgds=899) MONOCYTES ABSOLUTE COUNT (BEAKER) (test 0.47 K/ L 0.24-0.36 srqs=491) EOSINOPHILS ABSOLUTE COUNT (BEAKER) (test 0.25 K/ L 0.04-0.36 auhz=398) BASOPHILS ABSOLUTE COUNT (BEAKER) (test 0.07 K/ L 0.01-0.08 zzdm=161) IMMATURE GRANULOCYTES-RELATIVE PERCENT (BEAKER) 0 % 0-1 (test gqwg=3804) POCT-GLUCOSE [id number] 22:38:00 Test Item Value Reference Range Comments POC-GLUCOSE METER (BEAKER) 262 mg/dL 70-110 TESTED AT [facility] [address] (test lxvo=2476) [place] [address] PROTEIN, RANDOM [id number] 22:18:00 Test Item Value Reference Range Comments PROTEIN, URINE (BEAKER) (test btgc=7759) 641 mg/dL 0-14 CREATININE, RANDOM [id number] 22:07:00 Test Item Value Reference Range Comments CREATININE URINE (BEAKER) (test gnfk=974) 124.9 mg/dL Reference Range: No NormalsURINALYSIS W/ [id number] 22:03:00 Test Item Value Reference Range Comments COLOR (BEAKER) (test okox=659) Yellow CLARITY (BEAKER) (test zbuh=790) Cloudy SPECIFIC GRAVITY UA (BEAKER) (test cstf=596) 1.015 1.001-1.035 PH UA (BEAKER) (test wfdq=336) 5.5 5.0-8.0 PROTEIN UA (BEAKER) (test ejvc=446) 300 mg/dL Negative GLUCOSE UA (BEAKER) (test vqvi=745) 300 mg/dL Negative KETONES UA (BEAKER) (test npjb=611) Negative Negative BILIRUBIN UA (BEAKER) (test ldae=427) Negative Negative BLOOD UA (BEAKER) (test fjfm=448) Trace Negative NITRITE UA (BEAKER) (test nluy=073) Negative Negative LEUKOCYTE ESTERASE UA (BEAKER) (test nevc=684) Moderate Negative UROBILINOGEN UA (BEAKER) (test ipsu=033) 0.2 mg/dL 0.2-1.0 RBC UA (BEAKER) (test spjn=109) 11 /HPF WBC UA (BEAKER) (test nhre=143) 36 /HPF MUCUS (BEAKER) (test jrtc=8849) Few SQUAMOUS EPITHELIAL (BEAKER) (test wabt=195) 12 /HPF HYALINE CASTS (BEAKER) (test sacl=635) 66 /LPF CASTS (BEAKER) (test gnzk=1398) 112 /LPF YEAST (BEAKER) (test mmoj=3651) Moderate SOURCE(BEAKER) (test bvvp=7512) Urine, Voided [id number] 19:49:00 Test Item Value Reference Range Comments SODIUM (BEAKER) (test slsf=644) 136 meq/L 136-145 POTASSIUM (BEAKER) (test 5.1 meq/L 3.5-5.1 Specimen slightly hemolyzed zgar=227) CHLORIDE (BEAKER) (test 104 meq/L 98-107 hjnh=432) CO2 (BEAKER) (test wdpj=351) 25 meq/L 22-29 Call if K > 5POCT-GLUCOSE [id number] 11:37:00 Test Item Value Reference Range Comments POC-GLUCOSE METER (BEAKER) 293 mg/dL 70-110 TESTED AT [address] (test pjhy=9250) [place] [address] RAD, CHEST, 1 VIEW, NON [id number] 10:22:00Reason for exam:->SOBShould this be performed at the bedside?->YesFINAL REPORT Chest one view Discussion: There is cardiomegaly and interstitial congestion. A small right-sided effusion is noted. No pneumothorax. IMPRESSIONS: Suspected CHF. Signed: Jeanntete Nava Verified Date/Time: 05/13/2017 10:22:34 Reading Location: [facility] Radiology Reading Room POCT-GLUCOSE [id number] 08:34:00 Test Item Value Reference Range Comments POC-GLUCOSE METER (BEAKER) 178 mg/dL 70-110 TESTED AT [address] (test oawo=0278) [place] [address] POCT-GLUCOSE [id number] 06:53:00 Test Item Value Reference Range Comments POC-GLUCOSE METER (BEAKER) 167 mg/dL 70-110 TESTED AT [address] (test aios=0328) [place] [address] [id number] 04:48:00 Test Item Value Reference Range Comments BLOOD UREA NITROGEN (BEAKER) (test rmmc=665) 36 mg/dL 7-21 [id number] 04:48:00 Test Item Value Reference Range Comments SODIUM (BEAKER) (test yxqm=738) 139 meq/L 136-145 POTASSIUM (BEAKER) (test fwum=569) 5.2 meq/L 3.5-5.1 CHLORIDE (BEAKER) (test mcun=931) 109 meq/L 98-107 CO2 (BEAKER) (test fqkn=916) 23 meq/L 22-29 [id number] 04:48:00 Test Item Value Reference Range Comments CREATININE (BEAKER) (test 1.73 mg/dL 0.57-1.25 rbni=552) EGFR (BEAKER) (test 30 mL/min/1.73 sq m ESTIMATED GFR IS NOT vqbn=3488) ACCURATE CREATININE CLEARANCE IN PREDICTING GLOMERULAR FILTRATION RATE. ESTIMATED GFR IS NOT APPLICABLE FOR DIALYSIS PATIENTS. CBC (HEMOGRAM ONLY)2017-05-13 04:33:00 Test Item Value Reference Range Comments WHITE BLOOD CELL COUNT (BEAKER) (test kcsl=231) 10.2 K/ L 3.5-10.5 RED BLOOD CELL COUNT (BEAKER) (test nxlg=490) 4.54 M/ L 3.93-5.22 HEMOGLOBIN (BEAKER) (test cksr=591) 11.4 GM/DL 11.2-15.7 HEMATOCRIT (BEAKER) (test iqmk=497) 37.6 % 34.1-44.9 MEAN CORPUSCULAR VOLUME (BEAKER) (test sflh=972) 82.8 fL 79.4-94.8 MEAN CORPUSCULAR HEMOGLOBIN (BEAKER) (test 25.1 pg 25.6-32.2 afby=643) MEAN CORPUSCULAR HEMOGLOBIN CONC (BEAKER) (test 30.3 GM/DL 32.2-35.5 vuwc=535) RED CELL DISTRIBUTION WIDTH (BEAKER) (test 14.7 % 11.7-14.4 tgnp=345) PLATELET COUNT (BEAKER) (test wcye=049) 194 K/CU MM 150-450 MEAN PLATELET VOLUME (BEAKER) (test aoiy=818) 10.9 fL 9.4-12.3 NUCLEATED RED BLOOD CELLS (BEAKER) (test 0 /100 WBC 0-0 mcny=894) [id number] 23:29:00 Test Item Value Reference Range Comments ACTIVATED CLOTTING TIME 136 sec TESTED AT [address] (BEAKER) (test nusy=115) [facility] [address] [id number] 20:13:00 Test Item Value Reference Range Comments ACTIVATED CLOTTING TIME 175 sec TESTED AT [facility] [address] (BEAKER) (test kvym=984) [place] [address] [id number] 18:36:00 Test Item Value Reference Range Comments ACTIVATED CLOTTING TIME 202 sec TESTED AT [place] [address] [address] (BEAKER) (test nwus=685) [place] [address] [id number] 18:03:00 Test Item Value Reference Range Comments ACTIVATED CLOTTING TIME 208 sec TESTED AT [place] [address] [address] (BEAKER) (test osei=919) [place] [address] BASIC METABOLIC [id number] 11:57:00 Test Item Value Reference Range Comments SODIUM (BEAKER) (test 139 meq/L 136-145 jfby=036) POTASSIUM (BEAKER) (test 4.9 meq/L 3.5-5.1 nknv=638) CHLORIDE (BEAKER) (test 107 meq/L 98-107 utkp=998) CO2 (BEAKER) (test 27 meq/L 22-29 zlcz=283) BLOOD UREA NITROGEN 36 mg/dL 7-21 (BEAKER) (test dzio=054) CREATININE (BEAKER) (test 1.60 mg/dL 0.57-1.25 nqnz=719) GLUCOSE RANDOM (BEAKER) 187 mg/dL 70-105 (test fney=366) CALCIUM (BEAKER) (test 8.6 mg/dL 8.4-10.2 lfau=481) EGFR (BEAKER) (test 33 mL/min/1.73 sq m ESTIMATED GFR IS NOT ivgo=6453) ACCURATE CREATININE CLEARANCE IN PREDICTING GLOMERULAR FILTRATION RATE. ESTIMATED GFR IS NOT APPLICABLE FOR DIALYSIS PATIENTS. PROTHROMBIN [id number] 11:15:00 Test Item Value Reference Range Comments PROTIME (BEAKER) (test hmxi=179) 14.8 seconds 11.7-14.7 INR (BEAKER) (test ftgj=738) 1.2 <=5.9 RECOMMENDED COUMADIN/WARFARIN INR THERAPY RANGESSTANDARD DOSE: 2.0 - 3.0 Includes: PROPHYLAXIS forvenous thrombosis, systemic embolization; TREATMENT for venous thrombosis and/or pulmonary embolus.HIGH RISK: Target INR is 2.5-3.5 for patients with mechanical heart valves.Within 24 hours, if on CoumadinCBC W/ PLT COUNT & AUTO [id number] 11:01:00 Test Item Value Reference Range Comments WHITE BLOOD CELL COUNT (BEAKER) (test psvw=910) 9.1 K/ L 3.5-10.5 RED BLOOD CELL COUNT (BEAKER) (test qadz=449) 4.62 M/ L 3.93-5.22 HEMOGLOBIN (BEAKER) (test srxl=125) 11.7 GM/DL 11.2-15.7 HEMATOCRIT (BEAKER) (test wdlp=825) 38.0 % 34.1-44.9 MEAN CORPUSCULAR VOLUME (BEAKER) (test ejpi=483) 82.3 fL 79.4-94.8 MEAN CORPUSCULAR HEMOGLOBIN (BEAKER) (test 25.3 pg 25.6-32.2 zsdk=879) MEAN CORPUSCULAR HEMOGLOBIN CONC (BEAKER) (test 30.8 GM/DL 32.2-35.5 xjjs=686) RED CELL DISTRIBUTION WIDTH (BEAKER) (test 14.5 % 11.7-14.4 ekgi=808) PLATELET COUNT (BEAKER) (test fkkd=553) 205 K/CU MM 150-450 MEAN PLATELET VOLUME (BEAKER) (test ikvy=384) 10.6 fL 9.4-12.3 NUCLEATED RED BLOOD CELLS (BEAKER) (test 0 /100 WBC 0-0 cuqy=460) NEUTROPHILS RELATIVE PERCENT (BEAKER) (test 59 % qutc=516) LYMPHOCYTES RELATIVE PERCENT (BEAKER) (test 32 % adcm=542) MONOCYTES RELATIVE PERCENT (BEAKER) (test 5 % lboj=369) EOSINOPHILS RELATIVE PERCENT (BEAKER) (test 3 % zusd=779) BASOPHILS RELATIVE PERCENT (BEAKER) (test 1 % ebnr=611) NEUTROPHILS ABSOLUTE COUNT (BEAKER) (test 5.36 K/ L 1.56-6.13 tuam=375) LYMPHOCYTES ABSOLUTE COUNT (BEAKER) (test 2.86 K/ L 1.18-3.74 ewog=944) MONOCYTES ABSOLUTE COUNT (BEAKER) (test 0.48 K/ L 0.24-0.36 hyyw=961) EOSINOPHILS ABSOLUTE COUNT (BEAKER) (test 0.27 K/ L 0.04-0.36 rgxr=321) BASOPHILS ABSOLUTE COUNT (BEAKER) (test 0.08 K/ L 0.01-0.08 zmct=733) IMMATURE GRANULOCYTES-RELATIVE PERCENT (BEAKER) 0 % 0-1 (test gftz=3057) POCT-GLUCOSE [id number] 12:35:00 Test Item Value Reference Range Comments POC-GLUCOSE METER (BEAKER) 249 mg/dL 70-110 TESTED AT [address] (test lwns=0726) [place] [address] POCT-GLUCOSE [id number] 09:10:00 Test Item Value Reference Range Comments POC-GLUCOSE METER (BEAKER) 155 mg/dL 70-110 TESTED AT [address] (test otuk=1689) [place] [address] BASIC METABOLIC [id number] 05:39:00 Test Item Value Reference Range Comments SODIUM (BEAKER) (test 138 meq/L 136-145 agmh=710) POTASSIUM (BEAKER) (test 4.7 meq/L 3.5-5.1 hgzr=800) CHLORIDE (BEAKER) (test 107 meq/L 98-107 obgi=997) CO2 (BEAKER) (test 25 meq/L 22-29 dzgf=688) BLOOD UREA NITROGEN 36 mg/dL 7-21 (BEAKER) (test miaj=953) CREATININE (BEAKER) (test 1.75 mg/dL 0.57-1.25 bvut=475) GLUCOSE RANDOM (BEAKER) 126 mg/dL 70-105 (test iywx=876) CALCIUM (BEAKER) (test 8.2 mg/dL 8.4-10.2 aizj=315) EGFR (BEAKER) (test 29 mL/min/1.73 sq m ESTIMATED GFR IS NOT lkkw=0540) ACCURATE CREATININE CLEARANCE IN PREDICTING GLOMERULAR FILTRATION RATE. ESTIMATED GFR IS NOT APPLICABLE FOR DIALYSIS PATIENTS. [id number] 05:27:00 Test Item Value Reference Range Comments PHOSPHORUS (BEAKER) (test frmf=412) 5.0 mg/dL 2.3-4.7 [id number] 05:27:00 Test Item Value Reference Range Comments MAGNESIUM (BEAKER) (test eyqf=767) 1.6 mg/dL 1.6-2.6 POCT-GLUCOSE [id number] 05:25:00 Test Item Value Reference Range Comments POC-GLUCOSE METER (BEAKER) 144 mg/dL 70-110 TESTED AT [address] (test nhlv=8734) [place] [address] PROTHROMBIN [id number] 04:58:00 Test Item Value Reference Range Comments PROTIME (BEAKER) (test aiwk=381) 14.2 seconds 11.7-14.7 INR (BEAKER) (test cfts=538) 1.1 <=5.9 RECOMMENDED COUMADIN/WARFARIN INR THERAPY RANGESSTANDARD DOSE: 2.0 - 3.0 Includes: PROPHYLAXIS forvenous thrombosis, systemic embolization; TREATMENT for venous thrombosis and/or pulmonary embolus.HIGH RISK: Target INR is 2.5-3.5 for patients with mechanical heart valves.POCT-GLUCOSE [id number] 23:55:00 Test Item Value Reference Range Comments POC-GLUCOSE METER (BEAKER) 86 mg/dL 70-110 TESTED AT [address] (test ppvx=7595) [place] [address] B-TYPE NATRIURETIC FACTOR (BNP)2017-04-22 18:13:00 Test Item Value Reference Range Comments B-TYPE NATRIURETIC PEPTIDE (BEAKER) (test 1203 pg/mL 0-100 pycz=730) POCT-GLUCOSE [id number] 17:36:00 Test Item Value Reference Range Comments POC-GLUCOSE METER (BEAKER) 259 mg/dL 70-110 TESTED AT [address] (test pqwl=4148) [place] [address] HEMOGLOBIN [id number] 14:24:00 Test Item Value Reference Range Comments HEMOGLOBIN A1C (BEAKER) (test zsls=832) 10.5 % 4.3-6.1 POCT-GLUCOSE [id number] 12:34:00 Test Item Value Reference Range Comments POC-GLUCOSE METER (BEAKER) 207 mg/dL 70-110 TESTED AT [address] (test twnz=3198) [place] [address] [id number] 07:53:00 Test Item Value Reference Range Comments PHOSPHORUS (BEAKER) (test okub=523) 3.9 mg/dL 2.3-4.7 [id number] 07:53:00 Test Item Value Reference Range Comments MAGNESIUM (BEAKER) (test coad=170) 1.6 mg/dL 1.6-2.6 BASIC METABOLIC [id number] 07:53:00 Test Item Value Reference Range Comments SODIUM (BEAKER) (test 139 meq/L 136-145 rphv=937) POTASSIUM (BEAKER) (test 4.5 meq/L 3.5-5.1 bjmz=723) CHLORIDE (BEAKER) (test 108 meq/L 98-107 lfjw=150) CO2 (BEAKER) (test 25 meq/L 22-29 yvjx=482) BLOOD UREA NITROGEN 29 mg/dL 7-21 (BEAKER) (test dhau=032) CREATININE (BEAKER) (test 1.54 mg/dL 0.57-1.25 iani=821) GLUCOSE RANDOM (BEAKER) 211 mg/dL 70-105 (test pykp=667) CALCIUM (BEAKER) (test 8.5 mg/dL 8.4-10.2 qccl=696) EGFR (BEAKER) (test 34 mL/min/1.73 sq m ESTIMATED GFR IS NOT dxbw=1201) ACCURATE CREATININE CLEARANCE IN PREDICTING GLOMERULAR FILTRATION RATE. ESTIMATED GFR IS NOT APPLICABLE FOR DIALYSIS PATIENTS. TROPONIN [id number] 07:29:00 Test Item Value Reference Range Comments TROPONIN I (BEAKER) (test crmu=753) 0.05 ng/mL 0.00-0.03 Troponin I (TnI) levels [...] acidosis, acute neurological disease, and persistent tachyarrhythmia.PROTHROMBIN [id number] 07:01:00 Test Item Value Reference Range Comments PROTIME (BEAKER) (test beki=835) 13.8 seconds 11.7-14.7 INR (BEAKER) (test ewcl=115) 1.1 <=5.9 RECOMMENDED COUMADIN/WARFARIN INR THERAPY RANGESSTANDARD DOSE: 2.0 - 3.0 Includes: PROPHYLAXIS forvenous thrombosis, systemic embolization; TREATMENT for venous thrombosis and/or pulmonary embolus.HIGH RISK: Target INR is 2.5-3.5 for patients with mechanical heart valves.POCT-GLUCOSE [id number] 06:28:00 Test Item Value Reference Range Comments POC-GLUCOSE METER (BEAKER) 198 mg/dL 70-110 TESTED AT [address] (test gifn=8228) [place] [id number] CREATINE KINASE (CK), TOTAL AND [id number] 00:49:00 Test Item Value Reference Range Comments CREATINE KINASE TOTAL (BEAKER) (test xbpg=739) 69 U/L 29-200 CREATINE KINASE-MB (AKER) (test kyvd=503) 4.3 ng/mL 0.0-6.6 CREATINE KINASE-MB INDEX (SERVANDOAKER) (test dkis=964) 6.2 % CK-MB Reference Range:<6.7 Normal6.7-10.0 Borderline>10.0 AbnormalTROPONIN [id number] 00:49:00 Test Item Value Reference Range Comments TROPONIN I (SERVANDOAKER) (test lrke=643) 0.05 ng/mL 0.00-0.03 Troponin I (TnI) levels [...] acidosis, acute neurological disease, and persistent tachyarrhythmia.POCT-GLUCOSE [id number] 20:44:00 Test Item Value Reference Range Comments POC-GLUCOSE METER ([facility]) 269 mg/dL 70-110 TESTED AT [address] (test vrkj=2181) [place] [id number]
[2018-03-16] MEDS ORDERED: FUROSEMIDE 40 MG/4 ML VIAL ONE (01:23)
[2018-03-16 01:43] LABS: RBC Red Blood Cell Count 4.14 M/uL (3.86-4.86)
[2018-03-16 01:52] LABS: Absolute Lymphocytes (CBC) 1.9 K/uL (0.7-4.9); Absolute Monocytes 0.5 K/uL (0.1-1.3); Absolute Neutrophil 5.6 K/uL (1.8-8.0); Basophils % 1.2 % (0-1.3); Eosinophils % 0.1 % (0-4.4); Hematocrit 33.2 % (36.0-45.0); Lymphocytes % 23.6 % (15.3-44.8); MCH 25.9 pg (27.0-35.0); MCV 80.2 fL (80-100); Monocytes % 6.7 % (3.3-12.3)
[2018-03-16 02:01] LABS: Potassium 4.6 mmol/L (3.5-5.1); Troponin (Emerg Dept Use Only) 0.08 ng/mL (0.0-0.045)
--- NOTE | 2018-03-16 02:24 | ER ---
Nurse's Notes [facility] Name: Christy Priest Age: 62 yrs Sex: Female : 1955 Arrival Date: 03/16/2018 Time: 00:32 Bed 16 Private MD: Diagnosis: Acute combined systolic (congestive) and diastolic (congestive) heart failure;Acute on chronic kidney failure;Fall on same level from slipping, tripping and stumbling;Chest pain, unspecified Presentation: 03/16 00:35 Presenting complaint: EMS states: Pt fell yesterday in her home. Was able to go through jb4 most of the day okay, but then said it started hurting and she wanted to come get checked out. Transition of care: patient was not received from another setting of care. Onset of symptoms was March 13, 2018. Risk Assessment: Do you want to hurt yourself or someone else? Patient reports no desire to harm self or others. Initial Sepsis Screen: Does the patient meet any 2 criteria? No. Patient's initial sepsis screen is negative. Does the patient have a suspected source of infection? No. Patient's initial sepsis screen is negative. Care prior to arrival: None. 00:35 Method Of Arrival: EMS: [facility] jb4 00:35 Acuity: DENNY 3 jb4 Historical: - Allergies: 00:35 Augmentin; jb4 00:35 basil; jb4 00:35 Nitroglycerin; jb4 00:35 Tramadol HCl; jb4 00:35 Trazodone; jb4 00:35 Vancomycin; jb4 00:35 Morphine; jb4 - Home Meds: 00:35 Lasix Oral [Active]; Plavix Oral [Active]; Hydralazine Oral [Active]; gabapentin oral jb4 oral [Active]; insulin [Active]; - PMHx: 00:35 CHF; COPD; Diabetes - IDDM; ESRD; High Cholesterol; Hypertension; triple bypass; jb4 uterine cancer; - PSHx: 00:35 CABG; jb4 - Immunization history:: Adult Immunizations unknown, Flu vaccine is up to date. - Social history:: Smoking status: Patient/guardian denies using tobacco, Patient/guardian denies using alcohol. - Ebola Screening: : No symptoms or risks identified at this time. Screenin:45 Abuse screen: Denies threats or abuse. Nutritional screening: No deficits noted. jb4 Tuberculosis screening: No symptoms or risk factors identified. Fall Risk Fall in past 12 months (25 points). IV access (20 points). Total Merlos Fall Scale indicates High Risk Score (45 or more points). Fall prevention measures have been instituted. Side Rails Up X 2 Placed Close to Nursing Station Frequent Obs/Assessments Occuring Family Present and informed to notify staff if the need to leave the bedside. Assessment: 00:45 General: Appears in no apparent distress. uncomfortable, Behavior is calm, cooperative, jb4 appropriate for age. Pain: Complains of pain in Generalized Pain does not radiate. Pain currently is 10 out of 10 on a pain scale. Quality of pain is described as aching, Pain began 1 day ago. Is continuous. Neuro: Level of Consciousness is awake, alert, obeys commands, Oriented to person, place, time, situation. Cardiovascular: Patient's skin is warm and dry. Respiratory: Airway is patent Respiratory effort is even, unlabored, Respiratory pattern is regular, symmetrical. GI: No signs and/or symptoms were reported involving the gastrointestinal system. : No signs and/or symptoms were reported regarding the genitourinary system. EENT: No signs and/or symptoms were reported regarding the EENT system. Derm: Skin is intact, Skin is pink, warm \T\ dry. Musculoskeletal: Circulation, motion, and sensation intact. Swelling present in right leg and left leg. 01:50 Reassessment: Patient appears in no apparent distress at this time. Patient and/or jb4 family updated on plan of care and expected duration. Pain level reassessed. Patient is alert, oriented x 3, equal unlabored respirations, skin warm/dry/pink. 02:31 Reassessment: Patient appears in no apparent distress at this time. Patient and/or jb4 family updated on plan of care and expected duration. Pain level reassessed. Patient is alert, oriented x 3, equal unlabored respirations, skin warm/dry/pink. Patient states feeling better. Vital Signs: 00:35 BP 136 / 44; Pulse 74; Resp 18; Temp 98.7; Pulse Ox 94% on R/A; Weight 78.47 kg; Height jb4 5 ft. 7 in. (170.18 cm); 01:15 BP 143 / 64; Pulse 58; Resp 16; Pulse Ox 100% on R/A; jb4 01:48 BP 159 / 74; Pulse 61; Resp 16; Pulse Ox 88% on R/A; jb4 02:31 BP 166 / 78; Pulse 64; Resp 16; Pulse Ox 89% on 2 lpm NC; jb4 03:15 BP 170 / 83; Pulse 64; Resp 15; Pulse Ox 96% on 3 lpm NC; jb4 00:35 Body Mass Index 27.10 (78.47 kg, 170.18 cm) jb4 01:48 Provider notified of low O2 placed on 2l Nasal Cannula jb4 02:31 Pt desat to 89% after fentynal administration. O2 increased to 3L nc jb4 ED Course: 00:32 Patient arrived in ED. al2 00:35 Arm band placed on left wrist. jb4 00:37 Binh Bingham, GUILHERME is Primary Nurse. jb4 00:41 Triage completed. jb4 00:45 Patient has correct armband on for positive identification. Bed in low position. Call jb4 light in reach. Side rails up X 1. Pulse ox on. NIBP on. 00:46 Mallory Wilson FNP-C is PHCP. kb 00:46 Rc Moreno MD is Attending Physician. kb 01:10 Initial lab(s) drawn, by ED staff, sent to lab. Inserted saline lock: 20 gauge in left jb4 antecubital area, using aseptic technique. Blood collected. 01:11 Radiology exam delayed due to ER staff is currently starting an IV and obtaining labs. kw1 01:23 Radiology exam delayed due to EKG currently being done. kw1 01:27 X-ray completed. Portable x-ray completed in exam room. Patient tolerated procedure sg4 well. 01:28 Pelvis XRAY In Process Unspecified. EDMS 01:28 XRAY Chest (1 view) In Process Unspecified. EDMS 01:[address] via stretcher. kw1 01:38 CT C Spine In Process Unspecified. EDMS 01:40 CT completed. Patient tolerated procedure well. Patient moved back from CT. kw1 02:22 Maria De Jesus Merrill MD is Hospitalizing Provider. kb 03:15 No provider procedures requiring assistance completed. Patient admitted, IV remains in jb4 place. Administered Medications: 01:19 Drug: Lasix 40 mg Route: IVP; Site: left antecubital; jb4 02:14 Follow up: Response: No adverse reaction jb4 02:24 Drug: fentaNYL (PF) 50 mcg Route: IVP; Site: left antecubital; jb4 02:35 Follow up: Response: No adverse reaction; Pain is decreased jb4 Outcome: 02:23 Decision to Hospitalize by Provider. kb 03:33 Admitted to Tele accompanied by tech, via stretcher, room 403, with oxygen, with chart, jb4 Report called to GUILHERME Cronin 03:33 Condition: stable jb4 03:33 Discharge instructions given to patient, Instructed on the need for admit, Demonstrated understanding of instructions. 03:41 Patient left the ED. ak1 Signatures: Dispatcher [employer] EDMS Mallory Wilson, JASPREET LAWRENCEP-Rae Velazquez, RN RN ak1 Binh Bingham RN RN jb4 Alondra Curiel1 Sofia, Bhavana Temple sg4 Corrections: (The following items were deleted from the chart) 01:16 00:45 Musculoskeletal: Circulation, motion, and sensation intact. jb4 jb4 01:52 01:30 BP 123 / 81; Pulse 68bpm; Resp 16bpm; Pulse Ox 99% RA; jb4 jb4 01:57 01:50 Reassessment: Patient appears in no apparent distress at this time. Patient jb4 and/or family updated on plan of care and expected duration. Pain level reassessed. Patient is alert, oriented x 3, equal unlabored respirations, skin warm/dry/pink. Discussed Dc, F/u with pt, denies questions or concerns. jb4 03:28 00:45 Fall Risk None identified. jb4 jb4
--- NOTE | 2018-03-16 02:24 | EDPHYS ---
Physician Documentation [facility] Name: Christy Priest Age: 62 yrs Sex: Female : 1955 Arrival Date: 03/16/2018 Time: 00:32 Bed 16 Private MD: ED Physician Rc Moreno HPI: 03/16 01:05 This 62 yrs old Female presents to ER via EMS with complaints of fall. kb 01:05 Details of fall: The patient fell from an upright position, while walking. Onset: The kb symptoms/episode began/occurred yesterday. Associated injuries: The patient sustained neck injury, pain, pain with movement, pelvis, painful injury. Severity of symptoms: At their worst the symptoms were moderate, in the emergency department the symptoms are unchanged. The patient has not experienced similar symptoms in the past. The patient has not recently seen a physician. Pt reports her legs gave out and she fell. c/o pain to neck, chest and pelvis since fall. Reports legs have been swollen since she had surgery months ago and her surgeon says that's normal, but they get so swollen it is hard for her to walk and they give out. Reports she was given lasix for the swelling, but the pills don't work, she needs IV lasix. . Historical: - Allergies: 00:35 Augmentin; jb4 00:35 basil; jb4 00:35 Nitroglycerin; jb4 00:35 Tramadol HCl; jb4 00:35 Trazodone; jb4 00:35 Vancomycin; jb4 00:35 Morphine; jb4 - Home Meds: 00:35 Lasix Oral [Active]; Plavix Oral [Active]; Hydralazine Oral [Active]; gabapentin oral jb4 oral [Active]; insulin [Active]; - PMHx: 00:35 CHF; COPD; Diabetes - IDDM; ESRD; High Cholesterol; Hypertension; triple bypass; jb4 uterine cancer; - PSHx: 00:35 CABG; jb4 - Immunization history:: Adult Immunizations unknown, Flu vaccine is up to date. - Social history:: Smoking status: Patient/guardian denies using tobacco, Patient/guardian denies using alcohol. - Ebola Screening: : No symptoms or risks identified at this time. ROS: 01:02 Constitutional: Negative for fever, chills, and weight loss, Eyes: Negative for injury, kb pain, redness, and discharge, ENT: Negative for injury, pain, and discharge, Respiratory: Negative for shortness of breath, cough, wheezing, and pleuritic chest pain, Abdomen/GI: Negative for abdominal pain, nausea, vomiting, diarrhea, and constipation, Skin: Negative for injury, rash, and discoloration, Neuro: Negative for headache, weakness, numbness, tingling, and seizure. 01:02 Neck: Positive for pain with movement, pain at rest. 01:02 Cardiovascular: Positive for chest pain, with movement, edema. 01:02 MS/extremity: Positive for pain, of the pelvis. Exam: 01:02 Constitutional: This is a well developed, well nourished patient who is awake, alert, kb and in no acute distress. Head/Face: Normocephalic, atraumatic. Eyes: Pupils equal round and reactive to light, extra-ocular motions intact. Lids and lashes normal. Conjunctiva and sclera are non-icteric and not injected. Cornea within normal limits. Periorbital areas with no swelling, redness, or edema. Chest/axilla: Normal chest wall appearance and motion. Nontender with no deformity. No lesions are appreciated. Cardiovascular: Regular rate and rhythm with a normal S1 and S2. No gallops, murmurs, or rubs. Normal PMI, no JVD. No pulse deficits. Respiratory: Lungs have equal breath sounds bilaterally, clear to auscultation and percussion. No rales, rhonchi or wheezes noted. No increased work of breathing, no retractions or nasal flaring. Abdomen/GI: Soft, non-tender, with normal bowel sounds. No distension or tympany. No guarding or rebound. No evidence of tenderness throughout. Skin: Warm, dry with normal turgor. Normal color with no rashes, no lesions, and no evidence of cellulitis. MS/ Extremity: Pulses equal, no cyanosis. Neurovascular intact. Full, normal range of motion. Neuro: Awake and alert, GCS 15, oriented to person, place, time, and situation. Cranial nerves II-XII grossly intact. Motor strength 5/5 in all extremities. Sensory grossly intact. Cerebellar exam normal. Normal gait. : Neck: C-spine: vertebral tenderness, that is moderate, diffusely. 01:02 Cardiovascular: Edema: 3+ edema to level of left midcalf, left ankle, left foot, right midcalf, right ankle and right foot. Vital Signs: 00:35 BP 136 / 44; Pulse 74; Resp 18; Temp 98.7; Pulse Ox 94% on R/A; Weight 78.47 kg; Height jb4 5 ft. 7 in. (170.18 cm); 01:15 BP 143 / 64; Pulse 58; Resp 16; Pulse Ox 100% on R/A; jb4 01:48 BP 159 / 74; Pulse 61; Resp 16; Pulse Ox 88% on R/A; jb4 02:31 BP 166 / 78; Pulse 64; Resp 16; Pulse Ox 89% on 2 lpm NC; jb4 03:15 BP 170 / 83; Pulse 64; Resp 15; Pulse Ox 96% on 3 lpm NC; jb4 00:35 Body Mass Index 27.10 (78.47 kg, 170.18 cm) jb4 01:48 Provider notified of low O2 placed on 2l Nasal Cannula jb4 02:31 Pt desat to 89% after fentynal administration. O2 increased to 3L nc jb4 MDM: 00:46 Patient medically screened. kb 01:04 Data reviewed: vital signs, nurses notes. Data interpreted: Pulse oximetry: on room air kb is 94 %. Interpretation: normal. 02:13 Counseling: I had a detailed discussion with the patient and/or guardian regarding: the kb historical points, exam findings, and any diagnostic results supporting the discharge/admit diagnosis, lab results, radiology results, the need for further work-up and treatment in the hospital. 02:15 Physician consultation: Maria De Jesus Merrill MD was contacted at 02:15, regarding admission, kb to the telemetry unit. and will see patient in ED, shortly. 03/16 01:00 Order name: Basic Metabolic Panel; Complete Time: 02:02 kb 03/16 01:00 Order name: CBC with Diff; Complete Time: 01:56 kb 03/16 01:00 Order name: CT C Spine kb 03/16 01:00 Order name: Pelvis XRAY kb 03/16 01:00 Order name: NT PRO-BNP; Complete Time: 02:02 kb 03/16 01:00 Order name: Troponin (emerg Dept Use Only); Complete Time: 02:02 kb 03/16 01:00 Order name: XRAY Chest (1 view) kb 03/16 01:00 Order name: EKG; Complete Time: 01: kb 03/16 01:00 Order name: Cardiac monitoring; Complete Time: :14 kb 03/16 01:00 Order name: EKG - Nurse/Tech; Complete Time: 01:14 kb 03/16 01:00 Order name: IV Saline Lock; Complete Time: :16 kb 03/16 01:00 Order name: Labs collected and sent; Complete Time: : kb 03/16 01:00 Order name: O2 Per Protocol; Complete Time: 01: kb 03/16 01:00 Order name: O2 Sat Monitoring; Complete Time: 01:02 kb Administered Medications: 01:19 Drug: Lasix 40 mg Route: IVP; Site: left antecubital; jb4 02:14 Follow up: Response: No adverse reaction jb4 02:24 Drug: fentaNYL (PF) 50 mcg Route: IVP; Site: left antecubital; jb4 02:35 Follow up: Response: No adverse reaction; Pain is decreased jb4 Disposition: 03/16/18 02:23 Hospitalization ordered by Maria De Jesus Merrill for Observation. Preliminary diagnosis are Acute combined systolic (congestive) and diastolic (congestive) heart failure, Acute on chronic kidney failure, Fall on same level from slipping, tripping and stumbling, Chest pain, unspecified. - Bed requested for Telemetry/MedSurg (observation). - Status is Observation. ak1 - Condition is Stable. - Problem is new. - Symptoms are unchanged. UTI on Admission? No Signatures: Dispatcher [employer] EDPA Mallory Wilson, FIELD TECH-C FIELD TECH-Alondra Zavaleta, RN RN Rae Hennessy RN RN ak1 Binh Bingham RN RN jb4 Corrections: (The following items were deleted from the chart) 03:20 02:23 Hospitalization Ordered by Maria De Jesus Merrill MD for Observation. Preliminary diagnosis is Acute combined systolic (congestive) and diastolic (congestive) heart failure; Acute on chronic kidney failure; Fall on same level from slipping, tripping and stumbling; Chest pain, unspecified. Bed requested for Telemetry/MedSurg (observation). Status is Observation. Condition is Stable. Problem is new. Symptoms are unchanged. UTI on Admission? No. kb 03:41 03:20 03/16/2018 02:23 Hospitalization Ordered by Maria De Jesus Merrill MD for Observation. ak1 Preliminary diagnosis is Acute combined systolic (congestive) and diastolic (congestive) heart failure; Acute on chronic kidney failure; Fall on same level from slipping, tripping and stumbling; Chest pain, unspecified. Bed requested for Telemetry/MedSurg (observation). Status is Observation. Condition is Stable. Problem is new. Symptoms are unchanged. UTI on Admission? No. kl
[2018-03-16] MEDS ORDERED: FENTANYL CITR 100 MCG/2 ML ONE (02:26)
--- NOTE | 2018-03-16 02:52 | P.HP ---
Certification for Inpatient Patient admitted to: Observation With expected LOS: <2 Midnights Practitioner: I am a practitioner with admitting privileges, knowledge of patient current condition, hospital course, and medical plan of care. Services: Services provided to patient in accordance with Admission requirements found in Title 42 Section 412.3 of the Code of Federal Regulations Patient History Date of Service: 03/16/18 Reason for admission: acute on chronic diastolic chf History of Present Illness: Ms Priest is a 62 years old woman with multiple medical problems including IDDM, CKD, COPD, HTN, CAD s/p CABG x 4 in 05/17, states that since so she has had recurrent lower extremity edema associated with SOB, poorly responded to oral lasix. The patient actually came to ED because she fell yesterday. She is complaining of left hip pain. She denied chest pain or dizziness. She fell because her legs gave up. No history of fever or chills. Lab work remarkable for normal WBC count, creatinine elevated 2.7 (baseline 1.7-2.2). CT cervical spine shows no acute abnormalities. CXR remarkable for increased venous congestion consistent with CHF, pelvis XR no obvious fracture. Allergies morphine Allergy (Severe, Verified 07/29/17 03:02) Anaphylaxis amoxicillin [From Augmentin] Allergy (Verified 07/29/17 03:02) Unknown basil Allergy (Verified 07/29/17 03:02) Unknown clavulanic acid [From Augmentin] Allergy (Verified 07/29/17 03:02) Unknown trazodone Allergy (Verified 07/29/17 03:02) Unknown vancomycin Allergy (Verified 07/29/17 03:02) Unknown nitroglycerin Adverse Reaction (Mild, Verified 07/29/17 03:02) Nausea/Vomiting tramadol Adverse Reaction (Mild, Verified 07/29/17 03:02) Nausea/Vomiting Tramadol HCl Allergy (Uncoded 07/29/17 03:02) Unknown Home medications list reviewed: Yes Home Medications: RX: Clopidogrel Bisulfate [Plavix] 75 mg PO DAILY 04/28/15 RX: Insulin Detemir [Levemir Flextouch] 10 unit SQ BEDTIME 04/28/15 RX: Atorvastatin Calcium [Lipitor] 40 mg PO DAILY 02/03/17 RX: Gabapentin [Neurontin*] 100 mg PO BIDL 02/03/17 RX: Carvedilol 1 tab PO BID 07/29/17 RX: Gabapentin [Neurontin*] 300 mg PO BEDTIME 10/02/17 RX: Isosorbide Mononitrate [Isosorbide Mononitrate ER] 30 mg PO DAILY 10/02/17 RX: Magnesium Oxide [Magnesium] 400 mg PO DAILY 10/02/17 RX: Aspirin 81 mg PO DAILY 10/03/17 RX: Ferrous Sulfate [Feosol] 325 mg PO BID 10/03/17 RX: Fluticasone [Flovent Hfa 110*] 1 sprays IH BID 10/03/17 RX: Hydralazine HCl [Apresoline] 50 mg PO Q8HR 10/03/17 RX: Ipratropium/Albuterol Sulfate [Combivent Respimat 20-100 Mcg] 4 gm IH BID RX: Melatonin 10 mg PO DAILY 10/03/17 RX: Nifedipine [Nifedipine ER] 60 mg PO DAILY 10/03/17 Acetaminophen [Tylenol -Tablet] 325 mg PO Q6HP PRN 01/07/18 Albuterol Sulfate [Proair Respiclick] 90 mcg IH Q4HP PRN 01/07/18 Bumetanide [Bumex] 1 mg PO BID 01/07/18 Bupropion HCl [Wellbutrin] 75 mg PO DAILY 01/07/18 Citalopram Hydrobromide [Celexa] 10 mg PO DAILY 01/07/18 Diphenox/Atropine [Lomotil] 1 tab PO QIDP PRN 01/07/18 Furosemide [Lasix] 40 mg PO DAILY 01/07/18 Insulin Aspart [Novolog] 100 unit SQ ACHS 01/07/18 Ipratropium/Albuterol Sulfate [Iprat-Albut 0.5-3(2.5) mg/3 ml] 3 ml IH QID 01/07 L.acidoph,Paracasei, B.lactis [Probiotic] 1 each PO DAILY 01/07/18 - Past Medical/Surgical History Diabetic: Yes -: COPD, former tobacco use -: HTN -: CAD, CABG x4 vessels -: Diabetes mellitus type 2 -: CHF, systolic -: Uterine cancer status post hysterectomy -: Obstructive sleep apnea -: GERD -: Hyperlipidemia -: Chronic renal disease -: Amputation left great toe -: Anemia -: Rectal surgery -: Hysterectomy -: Cholecystectomy -: Gastric surgery -: Appendectomy -: CABG x4 vessel -: Femoral popliteal bypass -: Left great toe amputation Psychosocial/ Personal History: The patient is a . Her son lives with her. She has 3 children. - Family History Father -: Heart disease, Hypertension, Stroke, Cancer Mother -: GI disease Sister -: Lung disease, Diabetes Brother -: Heart disease, Hypertension, Stroke - Social History Smoking Status: Former smoker Alcohol use: No CD- Drugs: No Caffeine use: Yes Place of Residence: Home Review of Systems 10-point ROS is otherwise unremarkable Physical Examination - Physical Exam General: Alert, In no apparent distress HEENT: Atraumatic, PERRLA, Mucous membr. moist/pink, EOMI, Sclerae nonicteric Neck: Supple, 2+ carotid pulse no bruit, No LAD, Without JVD or thyroid abnormality Respiratory: Normal air movement, Crackles/rales (bibasilar) Cardiovascular: Regular rate/rhythm, Normal S1 S2 Gastrointestinal: Normal bowel sounds, No tenderness Musculoskeletal: No tenderness, Swelling (lower extremity edema 2+) Integumentary: No rashes Neurological: Normal speech, Normal strength at 5/5 x4 extr, Normal tone, Normal affect Lymphatics: No axilla or inguinal lymphadenopathy - Studies Laboratory Data (last 24 hrs) 03/16/18 01:14: WBC 8.2, Hgb 10.7 L, Hct 33.2 L, Plt Count 189 03/16/18 01:14: Sodium 136, Potassium 4.6, BUN 49 H, Creatinine 2.70 H, Glucose 150 H Assessment and Plan - Problems (Diagnosis) (1) Acute on chronic diastolic CHF (congestive heart failure) Current Visit: Yes Status: Acute (2) Fall Current Visit: Yes Status: Acute Qualifiers: Encounter type: initial encounter Qualified Code(s): W19.XXXA - Unspecified fall, initial encounter (3) Cnaam-et-valdszd kidney injury Onset Date: 09/09/16 Current Visit: No Status: Acute Qualifiers: Acute renal failure type: unspecified Chronic kidney disease stage: stage 3 (moderate) Qualified Code(s): N17.9 - Acute kidney failure, unspecified; N18.3 - Chronic kidney disease, stage 3 (moderate) (4) CAD (coronary artery disease) Onset Date: 10/03/17 Current Visit: No Status: Chronic Qualifiers: Coronary Disease-Associated Artery/Lesion type: bypass graft [place] vs. transplanted heart: [place] heart Associated angina: without angina Qualified Code(s): I25.810 - Atherosclerosis of coronary artery bypass graft(s) without angina pectoris (5) Diabetes mellitus Onset Date: 04/28/15 Current Visit: No Status: Chronic (6) Hypertension Current Visit: No Status: Chronic Qualifiers: Hypertension type: essential hypertension Qualified Code(s): I10 - Essential (primary) hypertension - Plan The patient came to ED after sustained a fall at home. There are no obvious fractures or dislocation in her images. She was found to have sifnificant LE edema and bilateral infiltrate on CXR consistent with pulmonary edema. Her renal function is worse compared to her baseline. Will admit the patient under observation to start IV diuresis. Last ECHO done in 10/15 showing 59 % of EF. - Advance Directives Does patient have a Living Will: No Does patient have a Durable POA for Healthcare: No - Code Status/Comfort Care Code Status Assessed: Yes Code Status: Full Code
[2018-03-16] MEDS ORDERED: ONDANSETRON 4 MG/2 ML VIAL IV PRN (03:46)
[2018-03-16] MEDS ORDERED: ALBUTEROL 2.5 MG/3 ML NEB SOL NEB PRN (03:46)
[2018-03-16] MEDS ORDERED: IPRATROPIUM BROM 0.5MG/2.5ML NEB PRN (03:46)
[2018-03-16] MEDS: ACETAMINOPHEN 500 MG TAB PO PRN ×2 (04:50→12:18)
[2018-03-16 05:15] VITALS: BMI 29.2
[2018-03-16] MEDS: NICOTINE 21 MG/PAT TD SCH (06:13)
--- NOTE | 2018-03-16 07:03 | EKG ---
Test Date: 2018-03-16 Test Time: 01:22:31 Explosive Operator Grenade: BILL MEASUREMENT RESULTS: Intervals: Rate: 59 RI: 176 QRSD: 106 QT: 476 QTc: 471 [place]: P: 83 RI: 176 QRS: 74 T: 139 INTERPRETIVE STATEMENTS: Sinus bradycardia Possible Left atrial enlargement Low voltage QRS ST & T wave abnormality, consider lateral ischemia Prolonged QT Abnormal ECG Compared to ECG 10/02/2017 16:39:00 Low QRS voltage now present Prolonged QT interval now present Sinus rhythm no longer present Myocardial infarct finding no longer present ST (T wave) deviation still present Possible ischemia still present Electronically Signed On 03-16-18 07:02:47 STEAM AND POWER SUPERINTENDENT by Alvaro Go
[2018-03-16] MEDS: INSULIN -REGULAR HUMAN 50 UNIT/0.5 ML ML SQ SCH ×4 (07:30→20:47)
--- NOTE | 2018-03-16 07:38 | RAD REPORT ---
EXAM DESCRIPTION: CT - C Spine Wo Con - 03/16/2018 5:53 am CLINICAL HISTORY: Neck injury status post fall. Neck pain COMPARISON: None. TECHNIQUE: Computed axial tomography of the cervical spine were obtained with sagittal and coronal r econstruction images generated and reviewed. Preliminary report generated by virtual radiologic and r eviewed prior to dictation All CT scans are performed using dose optimization technique as appropriate and may include automated exposure control or mA/KV adjustment according to patient size. FINDINGS: A cervical fracture is not seen. No dislocation is noted. Spondylosis involves the cervical spine. Small right pleural effusion Left mandibular tooth appears loose IMPRESSION: A cervical fracture is not seen. If the patient continues have symptoms to suggest spinal cord/spinal canal pathology then MRI would b e recommended.
[2018-03-16] MEDS ORDERED: PNEUMOCOCCAL VACCINE 0.5 ML IMVAC ONE (08:00)
[2018-03-16] MEDS ORDERED: INFLUENZA VACCINE (for 3y+) 0.5 ML DOSE IMVAC ONE (08:00)
[2018-03-16] MEDS: FUROSEMIDE 40 MG/4 ML VIAL IV SCH ×2 (08:28→16:16)
[2018-03-16] MEDS: ENOXAPARIN 40 MG/0.4 ML SQ SCH (08:28)
--- NOTE | 2018-03-16 08:48 | RAD REPORT ---
EXAM DESCRIPTION: Butch Single View03/16/2018 1:28 am CLINICAL HISTORY: Chest pain COMPARISON: September 2017 FINDINGS: The lungs appear clear of acute infiltrate. The heart is mildly enlarged. Postsurgical changes involve the chest. Small to moderate right pleural effusion
--- NOTE | 2018-03-16 08:50 | RAD REPORT ---
EXAM DESCRIPTION: RAD - Pelvis - 03/16/2018 1:28 am CLINICAL HISTORY: Pelvic pain status post injury FINDINGS: The bones are osteoporotic. The greater trochanter of the left femur is not entirely inclu ded in the field of view and is not evaluated. No fracture or dislocation is seen. If the patient continues to have symptoms to suggest an occult fracture then MRI would be recommended
[2018-03-16] MEDS ORDERED: CARVEDILOL 12.5 MG TAB PO ONE (11:52)
[2018-03-16] MEDS ORDERED: NIFEdipine 10 MG CAP PO ONE (11:53)
[2018-03-16] MEDS ORDERED: ISOSORBIDE MONO SR 30 MG TAB PO ONE (12:08)
[2018-03-16] MEDS ORDERED: NIFEDIPINE XL 60 MG TABLET PO ONE (12:08)
[2018-03-16] MEDS: HYDRALAZINE HCL 25 MG TABLET PO SCH ×2 (13:41→20:45)
[2018-03-16] MEDS: GABAPENTIN 100 MG CAP PO SCH ×2 (13:41→20:47)
--- NOTE | 2018-03-16 14:50 | RAD REPORT ---
EXAM DESCRIPTION: US - Extrem Venous W Compress René - 03/16/2018 2:40 pm CLINICAL HISTORY: Leg pain and swelling COMPARISON: None. TECHNIQUE: Real-time sonographic evaluation of the bilateral lower extremity common femoral, superfi cial femoral, popliteal and posterior tibial veins was performed. FINDINGS: Normal compressibility, flow augmentation, phasic flow and spontaneous flow are identified in the left and right lower extremity common femoral, superficial femoral, popliteal and posterior t ibial veins. No intraluminal filling defects seen. Soft tissue edema changes are present without foc al collection. IMPRESSION: No DVT in either lower extremity.
[2018-03-16] MEDS ORDERED: HYDRALAZINE HCL 20 MG/ML VIAL IV ONE (17:00)
--- NOTE | 2018-03-16 19:50 | PN ---
Date of Progress Note: 03/16/2018 Subjective: The patient is seen and examined. Chart reviewed, and case discussed with RN. The irene ent complaining of significant lower extremity edema, however, states that it has improved. Shortnes s of breath is improving as well. Medications: List reviewed. Physical Examination: Vital Signs: Temperature 98.1, heart rate 64, blood pressure 206/91, respirations 20, O2 of 96% on 3 L via nasal cannula. General: Awake, alert, oriented x3, in some mild distress. An elderly female. CV: S1, S2. Peripheral pulses present. No murmurs. Respiratory: Diminished breath sounds. Some crackles are present. No wheezing or stridor. Gastrointestinal: Abdomen is soft, nontender, nondistended. Positive bowel sounds. Extremities: No clubbing or cyanosis. The patient has 3+ edema, bilateral lower extremities. Neuro: Cranial nerves 2 through 12 intact grossly. No focal neurological deficit. Speech is normal . Laboratory Data: Sodium 136, potassium 4.6, chloride 105, CO2 of 25, BUN 49, creatinine 2.7, calcium 8.2. Troponin 0.08. BNP 24,227. WBC 8.2, H and H 10.7 and 33.2, platelets 189. The cervical spin e CT shows cervical fracture not seen. Small right pleural effusion. Spondylosis involves the cervi marilin spine. Left mandibular tooth appears to lose. Pelvis x-ray, bones are osteoporotic. The greate r trochanter of the left femur is not entirely included in the field of view and is not evaluated. N o fracture or dislocation seen. Chest x-ray personally reviewed, shows lungs are clear, postsurgical changes of the chest. Moderate right pleural effusion. Assessment: A 62-year-old female with: 1.Ngyyf-lc-pfadgfd diastolic heart failure. We will continue with congestive heart failure guidelin es. Monitor I's and O's, free fluid restriction, daily weights. 2.Status post fall, initial encounter. Imaging studies negative for fracture. 3.Evzej-yt-znxnexr kidney injury stage 3. We will continue to monitor creatinine level. Continue t o avoid NSAIDs and nephrotoxins. 4.Coronary artery disease, [place] artery and [place] heart, without angina. 5.Diabetes mellitus type 2, insulin requiring with hyperglycemia. We will continue on sliding scale insulin and resume home medications. Continue Accu-Cheks. 6.Essential hypertension, uncontrolled. We will adjust medications, add IV medications for use p.r. n. 7.Gastrointestinal and deep venous thrombosis prophylaxis addressed. Plan: Continue diuresis. Wean off oxygen as tolerated. Obtain venous Doppler to rule out DVT. The patient does have history of lower extremity DVT in the past. Resume home medications as appropriat e. Monitor blood pressure closely. FIORELLA Voice ID: [id number] Report ID: [id number]
[2018-03-16] MEDS: INSULIN GLARGINE 100 UNITS/ML SQ SCH (20:45)
[2018-03-16] MEDS: ATORVASTATIN 40 MG TAB PO SCH (20:46)
[2018-03-16] MEDS: CARVEDILOL 12.5 MG TAB PO SCH (20:46)
[2018-03-16] MEDS ORDERED: TRAZODONE 50 MG TABLET PO ONE (22:30)
[2018-03-16] MEDS: CODEINE 30MG/APAP 300MG TAB PO PRN (22:34)
[2018-03-17] MEDS: FUROSEMIDE 40 MG/4 ML VIAL IV SCH ×3 (00:51→17:00)
[2018-03-17] MEDS: CODEINE 30MG/APAP 300MG TAB PO PRN ×2 (02:52→20:24)
--- NOTE | 2018-03-17 06:02 | EKG ---
Test Date: 2018-03-16 Test Time: 16:37:56 Videogame Designer: CYNTHIA MEASUREMENT RESULTS: Intervals: Rate: 62 CA: 192 QRSD: 104 QT: 470 QTc: 477 [place]: P: 80 CA: 192 QRS: 95 T: 138 INTERPRETIVE STATEMENTS: Normal sinus rhythm Possible Left atrial enlargement Rightward axis T wave abnormality, consider lateral ischemia Prolonged QT Abnormal ECG Compared to ECG 03/16/2018 01:22:31 Sinus bradycardia no longer present Electronically Signed On 03-17-18 06:01:17 HR RECEPTIONIST by Alvaro Go
[2018-03-17 06:24] LABS: Absolute Lymphocytes (CBC) 1.7 K/uL (0.7-4.9); Absolute Monocytes 0.5 K/uL (0.1-1.3); Basophils % 1.3 % (0-1.3); Eosinophils % 1.4 % (0-4.4); Hematocrit 30.5 % (36.0-45.0); MCV 79.3 fL (80-100); MPV 7.7 fL (7.6-11.3); Monocytes % 9.2 % (3.3-12.3); RBC Red Blood Cell Count 3.85 M/uL (3.86-4.86)
[2018-03-17 06:31] LABS: Albumin 2.3 g/dL (3.4-5.0); Bilirubin Total 0.2 mg/dL (0.2-1.0); Potassium 4.2 mmol/L (3.5-5.1); Protein, Total 5.9 g/dL (6.4-8.2)
[2018-03-17] MEDS ORDERED: MAGNESIUM SULFATE 1 gm IVPB 1 GM/100 ML BAG IV ONE (07:00)
[2018-03-17] MEDS: INSULIN -REGULAR HUMAN 50 UNIT/0.5 ML ML SQ SCH ×5 (07:30→20:40)
[2018-03-17] MEDS: ASPIRIN 81 MG CHEWABLE TABLET PO SCH (08:54)
[2018-03-17] MEDS: CLOPIDOGREL 75 MG TABLET PO SCH (08:55)
[2018-03-17] MEDS: NIFEDIPINE XL 60 MG TABLET PO SCH (08:55)
[2018-03-17] MEDS: CARVEDILOL 12.5 MG TAB PO SCH ×2 (08:55→20:24)
[2018-03-17] MEDS: ISOSORBIDE MONO SR 30 MG TAB PO SCH (08:56)
[2018-03-17] MEDS: HYDRALAZINE HCL 25 MG TABLET PO SCH ×3 (08:56→20:24)
[2018-03-17] MEDS: GABAPENTIN 100 MG CAP PO SCH ×3 (08:56→20:25)
[2018-03-17] MEDS: ENOXAPARIN 40 MG/0.4 ML SQ SCH (08:57)
[2018-03-17] MEDS: NICOTINE 21 MG/PAT TD SCH (08:57)
[2018-03-17] MEDS: FERROUS SULFATE 325 MG TAB PO SCH (08:57)
[2018-03-17] MEDS ORDERED: buPROPion HCl 100 MG TAB PO SCH (09:00)
[2018-03-17] MEDS ORDERED: ISOSORBIDE MONO SR 30 MG TAB PO ONE (11:54)
--- NOTE | 2018-03-17 12:16 | ECHO ---
HEIGHT: 5 ft 7 in WEIGHT: 183 lb 12.8 oz DATE OF STUDY: 03/17/[address]: Taj Raymond MD 2-DIMENSIONAL: YES M.MODE: YES DOPPLER: YES COLOR FLOW: YES TDS: NO PORTABLE: NO DEFINITY: NO BUBBLE STUDY: NO DIAGNOSIS: CONGESTIVE HEART FAILURE CARDIAC HISTORY: CATHERIZATION: YES SURGERY: YES PROSTHETIC VALVE: NO PACEMAKER: NO MEASUREMENTS (cm) DIASTOLIC (NORMALS) SYSTOLIC (NORMALS) IVSd 1.8 (0.6-1.2) LA Diam 4.7 (1.9-4.0) LVEF 58% LVIDd 4.6 (3.5-5.7) LVIDs 3.2 (2.0-3.5) %FS 31% LVPWd 1.5 (0.6-1.2) Ao Diam 2.5 (2.0-3.7) 2 DIMENSIONAL ASSESSMENT: RIGHT ATRIUM: NORMAL LEFT ATRIUM: DILATED RIGHT VENTRICLE: NORMAL LEFT VENTRICLE: LEFT VENTRICULAR HYPERTROPHY TRICUSPID VALVE: NORMAL MITRAL VALVE: MITRAL ANNULAR CALCIFICATION PULMONIC VALVE: NORMAL AORTIC VALVE: SCLEROSIS PERICARDIAL EFFUSION: NONE AORTIC ROOT: NORMAL LEFT VENTRICULAR WALL MOTION: DECREASED LEFT VENTRICULAR COMPLIANCE. DOPPLER/COLOR FLOW: MILD TRICUSPID REGURGITATION AND MITRAL REGURGITATION. COMMENTS: MILD MITRAL REGURGITATION, TRICUSPID REGURGITATION. AORTIC SCLEROSIS- NO STENOSIS. MITRAL ANNULAR CALCIFICATION. LEFT VENTRICULAR HYPERTROPHY. NORMAL LEFT VENTRICULAR EJECTION FRACTION. DECREASED LEFT VENTRICULAR COMPLIANCE. TECHNOLOGIST: RAIMUNDO GERARDO RD
--- NOTE | 2018-03-17 14:50 | P.PN ---
Subjective Date of Service: 03/17/18 Chief Complaint: acute on chronic diastolic chf Subjective: No new changes, No C/O voiced, Improving Patient seen and examined at bedside. No family at bedside. Chart reviewed and case discussed with nursing staff. Review of Systems As noted Physical Examination - Vital Signs Temperature: 98.3 F Blood Pressure: 175/76 Pulse: 63 Respirations: 16 Pulse Ox (%): 98 - Physical Exam General: Alert, In no apparent distress, Oriented x3 HEENT: Atraumatic, PERRLA, EOMI Neck: Supple, JVD not distended Respiratory: Clear to auscultation bilaterally, Normal air movement Cardiovascular: Regular rate/rhythm, Normal S1 S2 Gastrointestinal: Normal bowel sounds, No tenderness Musculoskeletal: No tenderness Integumentary: No rashes Neurological: Normal speech, Normal tone, Normal affect Lymphatics: No axilla or inguinal lymphadenopathy Assessment And Plan - Plan This is a 62-year-old female with: [id number] diastolic heart failure. Improving symptoms We will continue with congestive heart failure guidelines. Monitor I's and O's , free fluid restriction, daily weights. Echo with ejection fraction of 58%, dilated left atria Status post fall, initial encounter. Imaging studies negative for fracture. Evixu-xm-iozdacl kidney injury stage 3. Creatinine improving. We will continue to monitor creatinine level. Continue to avoid NSAIDs and nephrotoxins. Coronary artery disease, [place] artery and [place] heart, without angina. Diabetes mellitus type 2, insulin requiring with hyperglycemia. We will continue on sliding scale insulin and resume home medications. Continue Accu-Cheks. Essential hypertension, uncontrolled. Blood pressure controlled on home medications. Will continue home medications at this time and continue to monitor. History of DVT Venous Doppler negative for DVT bilaterally during this visit DVT prophylaxis: Lovenox, Plavix GI prophylaxis: None Diet: Heart healthy Disposition: Continue diuresis. Wean off oxygen as tolerated. Monitor blood pressure closely. Physician Review: Patient Assessed, Agree with Above Assessment and Plan Time Spent Managing PTS Care (In Minutes): 35
--- NOTE | 2018-03-17 17:55 | CON ---
Date of Consultation: 03/17/[address] Velez's service on 03/16/2018. I saw the patient on 03/17/2018. Reason For Consultation: History of congestive heart failure and coronary artery disease. History Of Present Illness: Ms. Priest is a 62-year-old, Latin-[place] woman who [facility] [place]. She has a history of renal insufficiency with a creatinine of 2.7. Has not be en on dialysis. She has a history of hypertension, congestive heart failure, chronic coronary artery disease status post CABG, diabetes, COPD, and dyslipidemia. She came in status post fall. The main reason I was consulted was elevated troponin. The patient denied any chest pain, shortness of breat h, nausea, vomiting, diaphoresis, PND, orthopnea, pedal edema, palpitations, or syncope. Past Medical History: As stated above. Allergies: INCLUDE AUGMENTIN, MORPHINE, PENICILLIN, VANCOMYCIN, NITROGLYCERIN, AND TRAMADOL. Review of Systems: Negative. Social History: Negative. Family History: Noncontributory. Medications: Include Lasix, Plavix, hydralazine, and Neurontin. Physical Examination: Vital Signs: Stable. She was afebrile. She was in sinus bradycardia with occasional PACs. HEENT: Negative. Neck: Supple without any bruit, lymphadenopathy, JVD, or thyromegaly. Chest: Clear to auscultation and percussion. Cardiac: Revealed a regular rhythm and rate without any murmurs, gallops, or rubs. Abdomen: Benign. Extremities: Revealed no clubbing, cyanosis, or edema. Diagnostic Data: CT scan of the C-spine was negative. The chest x-ray shows [id number] pleur al effusion on the right. [place] BNP was 56480. Her troponin was 0.08. Creatinine is 2.7. Venous Dop pler was negative. Echocardiogram in September of 2017 showed normal ejection fraction with left ventricu lar hypertrophy. Impression And Plan: 1.The patient with chronic coronary artery disease status post coronary artery bypass graft with chr onic congestive heart failure probably diastolic with left ventricular hypertrophy and decreased left ventricular compliance and renal insufficiency with a creatinine of 2.7. That can explain the eleva tion of the troponin and B-type natriuretic peptide. An echocardiogram is pending. The patient has no cardiac symptoms. I do not plan to do any more cardiac workup other than the echo unless the echo shows significant change from September of 2017. I will continue her medical therapy as is otherwise. 2.Diabetes, well controlled. 3.Hypertension, poorly controlled. 4.Chronic obstructive pulmonary disease. 5.Renal insufficiency, stage 3 or 4. 6.Dyslipidemia. I will continue her present regimen, see what the echocardiogram shows. I am alda rned about her pleural effusion. I am not so sure if this is chronic or new. She will follow up wit h her hydraulic billet maker in [place] when she leaves, though the pleural effusion could be secondary to her renal insufficiency. JAMIA/CELESTINE Voice ID: [id number] Report ID: [id number]
[2018-03-17] MEDS: ATORVASTATIN 40 MG TAB PO SCH (20:24)
[2018-03-17] MEDS: INSULIN GLARGINE 100 UNITS/ML SQ SCH (20:25)
[2018-03-17] MEDS ORDERED: TRAZODONE 50 MG TABLET PO ONE (21:32)
[2018-03-18] MEDS: FUROSEMIDE 40 MG/4 ML VIAL IV SCH ×2 (00:40→09:13)
[2018-03-18] MEDS: CODEINE 30MG/APAP 300MG TAB PO PRN ×2 (04:06→10:35)
[2018-03-18 04:26] LABS: Absolute Lymphocytes (CBC) 1.7 K/uL (0.7-4.9); Absolute Monocytes 0.4 K/uL (0.1-1.3); Absolute Neutrophil 3.5 K/uL (1.8-8.0); Basophils % 0.9 % (0-1.3); Eosinophils % 2.6 % (0-4.4); Hematocrit 33.9 % (36.0-45.0); Lymphocytes % 28.5 % (15.3-44.8); MCH 25.5 pg (27.0-35.0); MCV 78.3 fL (80-100); MPV 7.8 fL (7.6-11.3); Monocytes % 7.3 % (3.3-12.3); RBC Red Blood Cell Count 4.33 M/uL (3.86-4.86)
[2018-03-18 04:34] LABS: Albumin 2.5 g/dL (3.4-5.0); Bilirubin Total 0.3 mg/dL (0.2-1.0); Potassium 4.2 mmol/L (3.5-5.1); Protein, Total 6.6 g/dL (6.4-8.2)
[2018-03-18] MEDS: INSULIN -REGULAR HUMAN 50 UNIT/0.5 ML ML SQ SCH ×2 (07:30→11:30)
[2018-03-18] MEDS ORDERED: BENZONATATE 100 MG CAP PO PRN (07:45)
[2018-03-18] MEDS ORDERED: ENOXAPARIN 30 MG/0.3 ML SQ SCH (09:00)
[2018-03-18] MEDS: NIFEDIPINE XL 60 MG TABLET PO SCH (09:11)
[2018-03-18] MEDS: HYDRALAZINE HCL 25 MG TABLET PO SCH ×2 (09:11→13:45)
[2018-03-18] MEDS: CLOPIDOGREL 75 MG TABLET PO SCH (09:12)
[2018-03-18] MEDS: CARVEDILOL 12.5 MG TAB PO SCH (09:12)
[2018-03-18] MEDS: GABAPENTIN 100 MG CAP PO SCH ×2 (09:12→13:45)
[2018-03-18] MEDS: FERROUS SULFATE 325 MG TAB PO SCH (09:12)
[2018-03-18] MEDS: ISOSORBIDE MONO SR 30 MG TAB PO SCH (09:13)
[2018-03-18] MEDS: ASPIRIN 81 MG CHEWABLE TABLET PO SCH (09:13)
[2018-03-18] MEDS: NICOTINE 21 MG/PAT TD SCH (09:14)
--- NOTE | 2018-03-18 11:03 | RAD REPORT ---
EXAM DESCRIPTION: RAD - Chest Pa And Lat (2 Views) - 03/18/2018 8:54 am CLINICAL HISTORY: Pleural effusion, shortness of breath COMPARISON: March 16 TECHNIQUE: PA and lateral views of the chest were obtained. FINDINGS: The lungs are mildly fibrotic as a baseline. Atelectasis is present in the lateral mid lef t lung field. Bilateral lung base patchy parenchymal opacification is present. There is right costoph renic angle blunting. Right-side pleural fluid has diminished since the . Cardiomegaly i s still present. Vasculature is within upper limits of normal. No pneumothorax. No acute bony finding noted. No aortic abnormality. IMPRESSION: Interval decrease in the right pleural effusion since March 16. Patchy bilateral lung base opacification remains. Mild cardiomegaly remains.
--- NOTE | 2018-03-18 11:11 | P.SSS ---
Patient History Date of Service: 03/18/18 Reason for admission: acute on chronic diastolic chf History of Present Illness: Ms Priest is a 62 years old woman with multiple medical problems including IDDM, CKD, COPD, HTN, CAD s/p CABG x 4 in 05/17, states that since so she has had recurrent lower extremity edema associated with SOB, poorly responded to oral lasix. The patient actually came to ED because she fell yesterday. She is complaining of left hip pain. She denied chest pain or dizziness. She fell because her legs gave up. No history of fever or chills. Lab work remarkable for normal WBC count, creatinine elevated 2.7 (baseline 1.7-2.2). CT cervical spine shows no acute abnormalities. CXR remarkable for increased venous congestion consistent with CHF, pelvis XR no obvious fracture. Allergies morphine Allergy (Severe, Verified 07/29/17 03:02) Anaphylaxis amoxicillin [From Augmentin] Allergy (Verified 07/29/17 03:02) Unknown basil Allergy (Verified 07/29/17 03:02) Unknown clavulanic acid [From Augmentin] Allergy (Verified 07/29/17 03:02) Unknown vancomycin Allergy (Verified 07/29/17 03:02) Unknown nitroglycerin Adverse Reaction (Mild, Verified 07/29/17 03:02) Nausea/Vomiting tramadol Adverse Reaction (Mild, Verified 07/29/17 03:02) Nausea/Vomiting Tramadol HCl Allergy (Uncoded 07/29/17 03:02) Unknown Home Medications: Clopidogrel Bisulfate [Plavix] 75 mg PO DAILY 04/28/15 Insulin Detemir [Levemir Flextouch] 10 unit SQ BEDTIME 04/28/15 Atorvastatin Calcium [Lipitor] 40 mg PO DAILY 02/03/17 Carvedilol 1 tab PO BID 07/29/17 Gabapentin [Neurontin*] 100 mg PO TID 10/02/17 Isosorbide Mononitrate [Isosorbide Mononitrate ER] 30 mg PO DAILY 10/02/17 Magnesium Oxide [Magnesium] 400 mg PO DAILY 10/02/17 Aspirin 81 mg PO DAILY 10/03/17 Ferrous Sulfate [Feosol] 325 mg PO DAILY 10/03/17 Hydralazine HCl [Apresoline] 50 mg PO TID 10/03/17 Nifedipine [Nifedipine ER] 60 mg PO DAILY 10/03/17 Acetaminophen [Tylenol*] 325 mg PO Q6HP PRN 01/07/18 Bupropion HCl [Wellbutrin] 75 mg PO DAILY 01/07/18 Furosemide [Lasix*] 20 mg PO BID 01/07/18 Trazodone HCl 1 tab PO BEDTIME 03/16/18 Benzonatate [Tessalon Perle*] 100 mg PO TID PRN #15 cap 03/18/18 - Past Medical/Surgical History Has patient received pneumonia vaccine in the past: No Diabetic: Yes -: COPD, former tobacco use -: HTN -: CAD, CABG x4 vessels -: Diabetes mellitus type 2 -: CHF, systolic -: Uterine cancer status post hysterectomy -: Obstructive sleep apnea -: GERD -: Hyperlipidemia -: Chronic renal disease -: Amputation left great toe -: Anemia -: Rectal surgery -: Hysterectomy -: Cholecystectomy -: Gastric surgery -: Appendectomy -: CABG x4 vessel -: Femoral popliteal bypass -: Left great toe amputation Psychosocial/ Personal History: The patient is a . Her son lives with her. She has 3 children. - Family History Father -: Heart disease, Hypertension, Stroke, Cancer Mother -: GI disease Sister -: Lung disease, Diabetes Brother -: Heart disease, Hypertension, Stroke - Social History Smoking Status: Former smoker Alcohol use: No CD- Drugs: No Caffeine use: Yes Place of Residence: Home Review of Systems As noted Physical Examination - Vital Signs Temperature: 98.6 F Blood Pressure: 148/86 Pulse: 69 Respirations: 16 Pulse Ox (%): 95 - Physical Exam General: Alert, In no apparent distress, Oriented x3 HEENT: Atraumatic, PERRLA, Mucous membr. moist/pink, EOMI, Sclerae nonicteric Neck: Supple, 2+ carotid pulse no bruit, No LAD, Without JVD or thyroid abnormality Respiratory: Clear to auscultation bilaterally, Normal air movement Cardiovascular: Regular rate/rhythm, Normal S1 S2 Gastrointestinal: Normal bowel sounds, No tenderness Musculoskeletal: No tenderness Integumentary: No rashes Neurological: Normal gait, Normal speech, Normal strength at 5/5 x4 extr, Normal tone, Normal affect Lymphatics: No axilla or inguinal lymphadenopathy Treatment Summary: Patient was admitted for acute on chronic diastolic heart failure. She was started on congestive heart failure guidelines, her I&Os were monitored her, she was fluid restricted and and daily weights were checked. Cardiology was consulted for her other troponins. Echocardiogram was done, which showed an ejection fraction of 50% with dilated left atrium. No further cardiac workup was planned by Cardiology. She did have elevated troponins on admission, this was likely secondary to her acute on chronic kidney disease. Her symptoms improved with the IV diuresis. She also had a fall prior to admission, imaging studies were negative for any fractures. Initially, patient with acute on chronic kidney disease. Her creatinine improved with IV fluids and the interventions. She was noted to have pleural effusion on imaging, unsure if this is chronic or new, secondary to acute renal disease. The pleural effusion had improved a repeat chest x-ray. As she was clinically improved, she will follow this as an outpatient with her cloth stretcher in [place]. Her blood pressure was uncontrolled while in the hospital, her home blood pressure medications were restarted in the blood pressure improved a little bit, though still elevated. She sees a cloth stretcher in [place]. She will be following up with her outpatient cardiology for further adjustment for her medications as well as the pleural effusions. As she had a history of DVT, venous Doppler studies were done during this hospitalization, which were negative for DVT bilaterally. At the time of discharge, she was symptom free, hemodynamically stable, she is tolerating a diet, ambulating without any concerns. Her symptoms and diagnoses were explained to her, all questions were answered and she verbalized understanding. - Disposition Disposition: ROUTINE DISCHARGE Condition: GOOD Consultations: Cardiology, Dr. Raymond Patient Discharge Instructions: 1) please follow up with the primary care physician in 1 week. 2) please follow up with the cloth stretcher in 1-2 weeks after discharge. New medications: Carlos Poole sent to pharmacy for your cough. No medication changes made at this time. Diet: AHA Activity: Ad shira Physician Review: Patient Assessed, Agree with Above Assessment and Plan Time Spent Managing Pts Care (In Minutes): 55
[2018-03-18 13:24] VITALS: BP 186/82; TEMP 98.7
[2018-03-18 15:00] VITALS: O2SAT 91
[2018-03-18] MEDS ORDERED: TRAZODONE 50 MG TABLET PO SCH (21:00)
--- NOTE | 2018-03-20 03:43 | PN ---
Date of Progress Note: 03/17/2018 Subjective: The patient was seen on 03/17/2018, because of congestive heart failure and coronary art carmela disease. She has had coronary artery bypass surgery, chronic diastolic congestive heart failure secondary to left ventricular compliance issues. Renal insufficiency creatinine is 2.7. She had elevated troponin, elevated BNP. Echocardiogram that was done showed an ejection fraction of 58% with aortic sclerosis, no stenosis. She had mitral annular calcification, left ventricular hype rtrophy, decreased left ventricular compliance. The patient has improved and I believe she is being discharged today by Dr. Loaiza. We will be happy to see the patient as an outpatient. JAMIA/CELESTINE Voice ID: [id number] Report ID: [id number]
== END 2018-03-18 14:58 | disposition home or self-care (01) ==
LOC: ER 00:30 → ERHOLD 02:23 → 4TH 03:31
PROVIDERS: ADMIT Internal Medicine; ATTEND Internal Medicine
DX: I13.0 Hypertensive heart and chronic kidney disease with heart failure and stage 1 through stage 4 chronic kidney disease, or unspecified chronic kidney disease (principal); E11.22 Type 2 diabetes mellitus with diabetic chronic kidney disease; N18.3 Chronic kidney disease, stage 3 (moderate); I50.33 Acute on chronic diastolic (congestive) heart failure; N17.9 Acute kidney failure, unspecified; J44.9 Chronic obstructive pulmonary disease, unspecified; Z87.891 Personal history of nicotine dependence; Z95.1 Presence of aortocoronary bypass graft; G47.33 Obstructive sleep apnea (adult) (pediatric); Z89.412 Acquired absence of left great toe; Z88.0 Allergy status to penicillin
CPT/HCPCS: 36415; 71045; 71046; 72125; 72170; 80048; 80053; 82962; 83735; 83880; 84484; 85025; 93005; 93306; 93970; 94760; 96374; 96375; 99285; G0378; J0360; J1650; J1940; J3010; J3475

== ENCOUNTER 2018-05-26 13:52 | Inpatient (IN) | payer MEDICAID ==
--- OUTSIDE RECORDS SUMMARY | 2018-05-26 15:04 | XMS REPORT | Clinical Summary ---
:[address] [facility] Address [address] [place] [address] Care Team Providers Name Role Phone Adrianna Rendon Primary Care Provider Binh Perez Unavailable Allergies Active Allergy Reactions Severity Noted Date Comments Amoxicillin-Pot Clavulanate Diarrhea High 04/21/2017 Basil Nausea Only High 04/21/2017 Morphine Anaphylaxis High 04/21/2017 Nitroglycerin Nausea And Vomiting High 04/21/2017 IV NITRO ONLY Trazodone Nausea And Vomiting High 05/12/2017 Vancomycin Analogues Nausea And Vomiting High 04/21/2017 Medications Medication Sig Dispensed Refills Start End Date Status Date aspirin 81 MG EC Take 81 mg by 0 Active tablet mouth daily. acetaminophen Take 2 tablets 30 tablet 0 05/27/19 Active (TYLENOL) 325 MG (650 mg total) by 8 19 tablet mouth every 6 (six) hours as needed for Pain for up to 360 days. albuterol-ipratro Inhale 2 puffs by 4 g 0 Active pium (COMBIVENT mouth via inhaler 8 RESPIMAT) 20-100 every 6 (six) mcg/actuation hours. Mist inhaler fluticasone Inhale 1 puff by 1 Inhaler 0 Active (FLOVENT HFA) 110 mouth via inhaler 8 mcg/actuation 2 (two) times inhaler daily. insulin detemir Inject 0.05 mLs (5 1 packet 0 Active (LEVEMIR FLEXPEN) Units total) 8 100 unit/mL (3 subcutaneously mL) InPn every morning. injection pen needle, Use as directed to 100 each 0 Active diabetic 29 gauge inject long and 8 Ndle short acting insulin.. carvedilol Take 1 tablet 60 tablet 0 Active (COREG) 12.5 MG (12.5 mg total) by 8 tablet mouth 2 (two) times daily. NIFEdipine Take 1 tablet (60 30 tablet 0 Active (ADALAT CC) 60 MG mg total) by mouth 8 24 hr tablet daily Blood pressure. hydrALAZINE Take 1 tablet (50 120 tablet 0 Active (APRESOLINE) 50 mg total) by mouth 8 MG tablet every 8 (eight) hours Blood pressure. atorvastatin Take 1 tablet (40 30 tablet 0 Active (LIPITOR) 40 MG mg total) by mouth 8 tablet daily. clopidogrel Take 1 tablet (75 30 tablet 0 Active (PLAVIX) 75 mg mg total) by mouth [address] onto the 0 Active (NICODERM CQ TD) skin. ferrous sulfate Take 1 tablet (325 60 tablet 0 Active 325 (65 FE) MG mg total) by mouth 8 tablet 2 (two) times daily. melatonin 10 mg Take 10 mg by 0 Active Tab mouth every night as needed. isosorbide Take 30 mg by 0 Active mononitrate mouth daily. (IMDUR) 30 MG 24 hr tablet gabapentin Take 100 mg in AM 100 capsule 0 Active (NEURONTIN) 100 and afternoon and 8 MG capsule 300 mg at night. acetaminophen-cod Take 1 tablet by 20 tablet 0 Active eine (TYLENOL #3) mouth every 6 8 300-30 mg per (six) hours as tablet needed. Max Daily Amount: 4 tablets lisinopril Take 40 mg by 0 06/02/19 Discontinued (PRINIVIL,ZESTRIL mouth daily. 18 ) 40 MG tablet gabapentin Take 100 mg by 0 06/02/19 Discontinued (NEURONTIN) 100 mouth 3 (three) 18 MG capsule times daily. clopidogrel Take 75 mg by 0 06/02/19 Discontinued (PLAVIX) 75 mg mouth daily. 18 tablet furosemide Take 40 mg by 0 06/02/19 Discontinued (LASIX) 40 MG mouth 2 (two) 18 tablet times daily. atorvastatin Take 40 mg by 0 06/02/19 Discontinued (LIPITOR) 40 MG mouth daily. 18 tablet insulin detemir Inject 30 Units 0 06/02/19 Discontinued (LEVEMIR) 100 subcutaneously 18 unit/mL injection daily. carvedilol Take 1 tablet (25 60 tablet 5 06/02/19 Discontinued (COREG) 25 MG mg total) by mouth 8 18 tablet 2 (two) times daily. nicotine Place 1 patch onto 28 patch 0 06/02/19 Discontinued (NICODERM CQ) 21 the skin daily for 8 18 mg/24 hr patch 30 days. HYDROcodone-aceta Take 1 tablet by 15 tablet 0 06/12/19 minophen (NORCO mouth every 4 8 18 10-325) 10-325 mg (four) hours as per tablet needed for up to 10 days. Max Daily Amount: 6 tablets atorvastatin Take 1 tablet (40 30 tablet 0 07/08/19 Discontinued (LIPITOR) 40 MG mg total) by mouth 8 18 tablet daily. carvedilol Take 1 tablet 60 tablet 5 07/08/19 Discontinued (COREG) 12.5 MG (12.5 mg total) by 8 18 tablet mouth 2 (two) times daily. gabapentin Take 1 capsule 90 capsule 0 07/08/19 Discontinued (NEURONTIN) 100 (100 mg total) by 8 18 MG capsule mouth 3 (three) times daily. melatonin 3 mg Take 1 tablet (3 30 tablet 0 09/03/19 Discontinued Tab tablet mg total) by mouth 8 18 nightly. torsemide Take 1 tablet (20 60 tablet 0 06/11/19 Discontinued (DEMADEX) 20 MG mg total) by mouth 8 18 tablet 2 (two) times daily Take instead of furosemide. hydrALAZINE Take 1 tablet (50 120 tablet 0 07/08/19 Discontinued (APRESOLINE) 50 mg total) by mouth 8 18 MG tablet every 8 (eight) hours Blood pressure. NIFEdipine Take 1 tablet (60 30 tablet 0 07/08/19 Discontinued (ADALAT CC) 60 MG mg total) by mouth 8 18 24 hr tablet daily Blood pressure. insulin aspart Short-acting 1 Syringe 0 06/11/19 Discontinued (NOVOLOG) 100 insulin - use 8 18 unit/mL InPn according to sliding scale in patient instructions.. nicotine Place 1 patch onto 28 patch 0 07/02/19 (NICODERM CQ) 21 the skin daily for 8 18 mg/24 hr patch 30 days. collagenase Apply topically 15 [...] 90 capsule 0 09/03/19 Discontinued (NEURONTIN) 100 (100 mg total) by 8 18 MG capsule mouth 3 (three) times daily. torsemide Take 2 tablets (40 60 tablet 0 09/06/19 Discontinued (DEMADEX) 20 MG mg total) by mouth 8 18 tablet 2 (two) times daily. magnesium oxide Take 1 tablet (400 30 tablet 0 09/10/19 (MAG-OX) 400 mg mg total) by mouth 8 18 tablet daily for 30 days. acetaminophen-cod Take 1 tablet by 20 tablet 0 09/06/19 Discontinued eine (TYLENOL #3) mouth every 6 8 18 300-30 mg per (six) hours as tablet needed. Max Daily Amount: 4 tablets bumetanide Take 1 tablet (1 60 tablet 0 10/06/19 (BUMEX) 1 MG mg total) by mouth 8 18 tablet 2 (two) times daily for 30 days. Hospital, Clinic, or Ordered Dose Route Frequency Start Date End Date Status Other Facility Administered Medication bumetanide (BUMEX) 2 mg IV Once 06/10/2017 06/10/2017 Ended injection 2 mg bumetanide (BUMEX) 2 mg IV Once 09/02/2017 09/02/2017 Discontinued injection 2 mg Active Problems Problem Noted Date S/P femoral-popliteal bypass surgery 09/02/2017 Overview: Right on 08/05/17 Hyperlipidemia 08/07/2017 History of IBS 08/07/2017 Leukocytosis 08/07/2017 PVD (peripheral vascular disease) with claudication 08/05/2017 Acute on chronic diastolic congestive heart failure 06/10/2017 PVD (peripheral vascular disease) 05/27/2017 S/P CABG (coronary artery bypass graft) 05/26/2017 Normocytic anemia 05/26/2017 Severe protein-calorie malnutrition 05/23/2017 ARTURO (acute kidney injury) 05/21/2017 Chronic kidney disease, stage 3 05/21/2017 CAD (coronary artery disease) 05/20/2017 Overview: S/p CABG- PRITCHETT-LAD,SVG-PDA,ramus,OM3 on 05/20/17 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 05/19/2017 Overview: RLE PVD Acute CHF 05/14/2017 COPD (chronic obstructive pulmonary disease) 05/14/2017 Controlled type 2 diabetes mellitus with circulatory disorder, with 05/14/2017 long-term current use of insulin Smoker 05/14/2017 Frequent PVCs 05/12/2017 Resolved Problems Problem Noted Date Resolved Date Recurrent right pleural effusion 05/27/2017 06/10/2017 Diarrhea 05/26/2017 06/10/2017 Chronotropic incompetence 05/21/2017 06/10/2017 Cardiogenic shock 05/21/2017 06/10/2017 Acute blood loss anemia 05/21/2017 06/10/2017 Acute respiratory failure with hypoxemia 05/21/2017 06/10/2017 Hyperchloremic metabolic acidosis 05/21/2017 06/10/2017 SIRS (systemic inflammatory response syndrome) 05/21/2017 06/10/2017 Coronary artery disease involving kashia coronary artery of 05/19/20172017 kashia heart without angina pectoris Acute on chronic respiratory failure with hypoxia 05/14/2017 06/10/2017 Benign hypertension with chronic kidney disease, stage III 04/22/20172017 Bigeminal rhythm 04/21/2017 06/10/2017 Respiratory insufficiency 06/10/2017 Encounters Date Type Specialty Care Team Description 09/11/2017 Refill Cardiology Alex Juarez MD 09/02/2017 - Emergency Cardiology Catarino Leon S/P femoral-popliteal bypass surgery (Primary Dx); 09/05/2017 MD Ac Hyperlipidemia, unspecified hyperlipidemia type; Karlie Mckeon PVD (peripheral vascular disease) with claudication ( [facility]); MD Edgar Chronic diastolic CHF (congestive heart failure) ([facility]); Maribeth Oliveros Chronic kidney disease, stage 3; MD Mariza Acute on chronic diastolic congestive heart failure ([facility]); Coronary artery disease involving kashia coronary artery of kashia heart without angina pectoris; Controlled type 2 diabetes mellitus with diabetic peripheral angiopathy without gangrene, with long-term current use of insulin ([facility]); Chronic obstructive pulmonary disease, unspecified COPD type ([facility]); S/P CABG (coronary artery bypass graft); ARTURO (acute kidney injury) ([facility]); Smoker 09/02/2017 Office Visit Cardiology Jean Monroe NP Pain and swelling of lower leg, right (Primary Dx); Acute on chronic diastolic (congestive) heart failure ([facility]); S/P femoral-popliteal bypass surgery 08/05/2017 Surgery Mariela Ramirez BYPASS,FEMORAL-POPLITEA MD Chelsea L 08/05/2017 Anesthesia Event Lupillo Meade MD 08/05/2017 - Hospital Encounter Cardiology Mariela Ramirez PVD ( peripheral vascular disease) ([facility]); 08/09/2017 MD Chelsea Controlled type 2 diabetes mellitus with complication, without long-term current use of insulin ([facility]); Chronic obstructive pulmonary disease, unspecified COPD type ([facility]); PVD (peripheral vascular disease) with claudication ([facility]) 08/04/2017 Orders Only Faviola Nascimento MD 07/24/2017 Office Visit Mariela Rene Coronary artery disease MD Chelsea involving kashia coronary artery of kashia heart without angina pectoris (Primary Dx) 07/07/2017 Telephone Cardiology Jean Monroe NP Medication Refill 06/10/2017 Office Visit Cardiology Jean Monroe NP Acute on chronic diastolic ACC/AHA stage C congestive heart failure (HCC) 05/27/2017 Surgery Kelly Chang MD PERIPHERAL ANGIOS / AORTOGRAM 05/12/2017 - Hospital Encounter Cardiology Zayas Gio, Bigeminal rhythm (Primary Dx); 06/01/2017 Sandra Carter MD Chronic obstructive pulmonary disease, unspecified COPD type (HCC); Xiomara, Smoker; MD Tyron Acute on chronic respiratory failure with hypoxia (HCC); Kaylyn, Acute blood loss anemia; Isabella Maldonado MD Acute kidney injury (nontraumatic) ([facility]); Alex Juarez MD Acute respiratory failure with hypoxemia (HCC); S/P CABG x 4; Cardiogenic shock (HCC); Chronotropic incompetence; Hyperchloremic metabolic acidosis; SIRS (systemic inflammatory response syndrome) (HCC); Severe protein-calorie malnutrition (HCC); S/P CABG (coronary artery bypass graft); Benign hypertension with chronic kidney disease, stage III; Chronic kidney disease, stage 3; Controlled type 2 diabetes mellitus with complication, without long- term current use of insulin (HCC); Coronary artery disease involving kashia coronary artery of kashia heart without angina pectoris; Diarrhea, unspecified type; Normocytic anemia; Respiratory insufficiency after 05/25/2017 Family History Medical History Relation Name Comments [...] Assigned at Date Recorded Not on file Job Start Date Occupation Industry Not on file Not on file Not on file Travel History Travel Start Travel End No recent travel history available. Last Filed Vital Signs Vital Sign Reading Time Taken Blood Pressure 136/60 09/05/2017 2:32 PM CDT Pulse 55 09/05/2017 2:32 PM CDT Temperature 35.8 C (96.4 F) 09/05/2017 2:32 PM CDT Respiratory Rate 18 09/05/2017 2:32 PM CDT Oxygen Saturation 95% 09/05/2017 2:32 PM CDT Inhaled Oxygen Concentration 21% 08/08/2017 11:18 PM CDT Weight 77.5 kg (170 lb 13.7 oz) 09/05/2017 8:08 AM CDT Height 170.2 cm (5' 7") 09/02/2017 9:41 PM CDT Body Mass Index 26.76 09/05/2017 8:08 AM CDT Plan of Treatment Health Maintenance Due Date Last Done Comments INFLUENZA VACCINE 12/29/2017 Implants Implanted Type Area High Lift Operator Device Shelf Model / Identifier Expiration Serial / Date Lot Device Clsr Angio-Seal Vip 8fr [id number] - [id number] Cardiovascular N/A: [facility] 01/28/2018 [id number] / Implanted: Qty: 1 on 05/12/2017 by Sandra Gaytan MD Groin MED:CARDIAC / SURG [id number] Grft Eptfe-Heparin Rng [id number] - [id number] Graft/Patch Right: [employer] & 04/09/2021 [id number] / Implanted: Qty: 1 on 08/05/2017 by Mariela Ramirez MD Leg ASSC:MED PRDT [id number] / N/A Procedures Procedure Name Priority Date/Time Associated Comments Diagnosis RHYTHM STRIP - SCAN 09/08/2017 3:04 PM CDT POCT-GLUCOSE METER Routine 09/05/2017 5:05 Results for this PM CDT procedure are in the results section. ECHOCARDIOGRAM REPORT - 09/05/2017 3:50 SCAN PM CDT BASIC METABOLIC PANEL Routine 09/05/2017 3:14 Results for this (7) PM CDT procedure are in the results section. POCT-GLUCOSE METER Routine 09/05/2017 11:28 Results for this AM CDT procedure are in the results section. 2D ECHO W/ DOPPLER Routine 09/05/2017 11:25 Results for this (CW/PW/COLOR) AM CDT procedure are in the results section. POCT-GLUCOSE METER Routine 09/05/2017 6:59 Results for this AM CDT procedure are in the results section. CBC W/PLT COUNT & AUTO Routine 09/05/2017 5:27 Results for this DIFFERENTIAL AM CDT procedure are in the results section. PHOSPHORUS Routine 09/05/2017 5:27 Results for this AM CDT procedure are in the results section. CALCIUM, IONIZED Routine 09/05/2017 5:27 Results for this AM CDT procedure are in the results section. LACTIC ACID, VENOUS, Routine 09/05/2017 5:27 Results for this WHOLE BLOOD AM CDT procedure are in the results section. CBC W/PLT COUNT & AUTO Routine 09/05/2017 5:27 Results for this DIFFERENTIAL AM CDT procedure are in the results section. MAGNESIUM Routine 09/05/2017 5:27 Results for this AM CDT procedure are in the results section. BASIC METABOLIC PANEL Routine 09/05/2017 5:27 Results for this (7) AM CDT procedure are in the results section. POCT-GLUCOSE METER Routine 09/04/2017 9:15 Results for this PM CDT procedure are in the results section. XR SACRUM & COCCYX MIN Routine 09/04/2017 9:06 Results for this 3 VIEWS PM CDT procedure are in the results section. POCT-GLUCOSE METER Routine 09/04/2017 5:35 Results for this PM CDT procedure are in the results section. POCT-GLUCOSE METER Routine 09/04/2017 1:54 Results for this PM CDT procedure are in the results section. POCT-GLUCOSE METER Routine 09/04/2017 12:32 Results for this PM CDT procedure are in the results section. POCT-GLUCOSE METER Routine 09/04/2017 7:57 Results for this AM CDT procedure are in the results section. PERIPHERAL VASCULAR 09/04/2017 7:20 REPORT - SCAN AM CDT CBC W/PLT COUNT & AUTO Routine 09/04/2017 4:18 Results for this DIFFERENTIAL AM CDT procedure are in the results section. CREATINE KINASE (CK) Routine 09/04/2017 4:18 Results for this AM CDT procedure are in the results section. PHOSPHORUS Routine 09/04/2017 4:18 Results for this AM CDT procedure are in the results section. CALCIUM, IONIZED Routine 09/04/2017 4:18 Results for this AM CDT procedure are in the results section. CBC W/PLT COUNT & AUTO Routine 09/04/2017 4:18 Results for this DIFFERENTIAL AM CDT procedure are in the results section. MAGNESIUM Routine 09/04/2017 4:18 Results for this AM CDT procedure are in the results section. BASIC METABOLIC PANEL Routine 09/04/2017 4:18 Results for this (7) AM CDT procedure are in the results section. POCT-GLUCOSE METER Routine 09/03/2017 8:33 Results for this PM CDT procedure are in the results section. CREATININE, RANDOM Routine 09/03/2017 7:17 Results for this URINE PM CDT procedure are in the results section. PROTEIN, RANDOM URINE Routine 09/03/2017 7:17 Results for this PM CDT procedure are in the results section. POCT-GLUCOSE METER Routine 09/03/2017 5:57 Results for this PM CDT procedure are in the results section. ARTERIAL DOPPLER LEG, Routine 09/03/2017 5:30 Results for this RIGHT PM CDT procedure are in the results section. POCT-GLUCOSE METER Routine 09/03/2017 11:46 Results for this AM CDT procedure are in the results section. ECG 12-LEAD Routine 09/03/2017 8:28 AM CDT Procedure Note - Interface, External Ris In - 09/03/2017 8:33 AM CDT Ventricular Rate 65 BPM Atrial Rate 65 BPM P-R Interval 172 ms QRS Duration 104 ms Q-T Interval 472 ms QTC Calculation(Bazett) 490 ms P [place] 91 degrees R [place] 1 degrees T [place] 133 degrees Normal sinus rhythm Possible Left atrial enlargement Possible Anterior infarct (cited on or before 18-MAY-2017) ST & T wave abnormality, consider lateral ischemia Abnormal ECG When compared with ECG of 02-SEP-2017 22:48, No significant change was found ECG 12-LEAD STAT 09/03/2017 8:28 AM CDT POCT-GLUCOSE METER Routine 09/03/2017 7:46 AM CDT CBC W/PLT COUNT & AUTO Routine 09/03/2017 4:35 AM CDT Results for this DIFFERENTIAL procedure are in the results section. TROPONIN I Routine 09/03/2017 4:35 AM CDT CBC W/PLT COUNT & AUTO Routine 09/03/2017 4:35 AM CDT Results for this DIFFERENTIAL procedure are in the results section. HEPATIC FUNCTION PANEL Routine 09/03/2017 4:35 AM CDT MAGNESIUM Routine 09/03/2017 4:35 AM CDT BASIC METABOLIC PANEL (7) Routine 09/03/2017 4:35 AM CDT TROPONIN I Routine 09/02/2017 11:11 PM CDT ECG 12-LEAD Routine 09/02/2017 10:48 PM CDT Procedure Note - Interface, External Ris In - 09/02/2017 11:02 PM CDT Ventricular Rate 67 BPM Atrial Rate 67 BPM P-R Interval 162 ms QRS Duration 104 ms Q-T Interval 448 ms QTC Calculation(Bazett) 473 ms P [place] 88 degrees R [place] 25 degrees T [place] 139 degrees Normal sinus rhythm Possible Left atrial enlargement Cannot rule out Anterior infarct , age undetermined T wave abnormality, consider lateral ischemia Abnormal ECG When compared with ECG of 23-MAY-2017 10:42, Inverted T waves have replaced nonspecific T wave abnormality in Lateral leads ECG 12-LEAD Routine 09/02/2017 10:48 PM Results for this CDT procedure are in the results section. POCT-GLUCOSE METER Routine 09/02/2017 10:46 PM Results for this CDT procedure are in the results section. XR CHEST 1 VIEW STAT 09/02/2017 8:47 PM Results for this PORTABLE/BEDSIDE CDT procedure are in the results section. CREATININE, RANDOM Routine 09/02/2017 8:43 PM Results for this URINE CDT procedure are in the results section. SODIUM, RANDOM URINE Routine 09/02/2017 8:43 PM Results for this CDT procedure are in the results section. URINALYSIS W/ STAT 09/02/2017 8:43 PM Results for this MICROSCOPIC CDT procedure are in the results section. PERIPHERAL VASCULAR 09/02/2017 6:50 PM REPORT - SCAN CDT VENOUS DOPPLER LEG, STAT 09/02/2017 5:34 PM Results for this RIGHT CDT procedure are in the results section. CBC W/PLT COUNT & AUTO STAT 09/02/2017 4:15 PM Results for this DIFFERENTIAL CDT procedure are in the results section. BASIC METABOLIC PANEL STAT 09/02/2017 4:15 PM Results for this (7) CDT procedure are in the results section. CBC W/PLT COUNT & AUTO STAT 09/02/2017 4:15 PM Results for this DIFFERENTIAL CDT procedure are in the results section. PT/APTT STAT 09/02/2017 4:15 PM Results for this CDT procedure are in the results section. B-TYPE NATRIURETIC STAT 09/02/2017 1:18 PM Acute on chronic Results for this FACTOR (BNP) CDT diastolic procedure are in (congestive) heart the results failure (HCC) section. BASIC METABOLIC PANEL STAT 09/02/2017 1:18 PM Acute on chronic Results for this (7) CDT diastolic procedure are in (congestive) heart the results failure (HCC) section. RHYTHM STRIP - SCAN 08/12/2017 11:00 AM CDT POCT-GLUCOSE METER Routine 08/09/2017 12:17 PM Results for this CDT procedure are in the results section. CBC W/PLT COUNT & AUTO STAT 08/09/2017 4:38 AM Results for this DIFFERENTIAL CDT procedure are in the results section. CALCIUM, IONIZED Routine 08/09/2017 4:38 AM Results for this CDT procedure are in the results section. PHOSPHORUS STAT 08/09/2017 4:38 AM Results for this CDT procedure are in the results section. MAGNESIUM STAT 08/09/2017 4:38 AM Results for this CDT procedure are in the results section. CBC W/PLT COUNT & AUTO STAT 08/09/2017 4:38 AM Results for this DIFFERENTIAL CDT procedure are in the results section. BASIC METABOLIC PANEL Routine 08/09/2017 4:38 AM Results for this (7) CDT procedure are in the results section. POCT-GLUCOSE METER Routine 08/08/2017 8:40 PM Results for this CDT procedure are in the results section. TRANSFUSION SERVICE 08/08/2017 5:41 PM REPORT - SCAN CDT POCT-GLUCOSE METER Routine 08/08/2017 4:40 PM Results for this CDT procedure are in the results section. POCT-GLUCOSE METER Routine 08/08/2017 12:07 PM Results for this CDT procedure are in the results section. POCT-GLUCOSE METER Routine 08/08/2017 8:18 AM Results for this CDT procedure are in the results section. CBC W/PLT COUNT & AUTO STAT 08/08/2017 4:44 AM Results for this DIFFERENTIAL CDT procedure are in the results section. CALCIUM, IONIZED Routine 08/08/2017 4:44 AM Results for this CDT procedure are in the results section. PHOSPHORUS STAT 08/08/2017 4:44 AM Results for this CDT procedure are in the results section. MAGNESIUM STAT 08/08/2017 4:44 AM Results for this CDT procedure are in the results section. CBC W/PLT COUNT & AUTO STAT 08/08/2017 4:44 AM Results for this DIFFERENTIAL CDT procedure are in the results section. BASIC METABOLIC PANEL Routine 08/08/2017 4:44 AM Results for this (7) CDT procedure are in the results section. PREPARE LEUKO-REDUCED Routine 08/07/2017 11:54 PM Results for this RBC CDT procedure are in the results section. POCT-GLUCOSE METER Routine 08/07/2017 9:04 PM Results for this CDT procedure are in the results section. TRANSFUSION SERVICE 08/07/2017 5:41 PM REPORT - SCAN CDT POCT-GLUCOSE METER Routine 08/07/2017 4:58 PM Results for this CDT procedure are in the results section. POCT-GLUCOSE METER Routine 08/07/2017 11:30 AM Results for this CDT procedure are in the results section. POCT-GLUCOSE METER Routine 08/07/2017 8:06 AM Results for this CDT procedure are in the results section. XR CHEST 1 VIEW Routine 08/07/2017 7:21 AM Results for this PORTABLE/BEDSIDE CDT procedure are in the results section. CBC W/PLT COUNT & AUTO STAT 08/07/2017 4:19 AM Results for this DIFFERENTIAL CDT procedure are in the results section. RETICULOCYTE COUNT Routine 08/07/2017 4:19 AM Results for this CDT procedure are in the results section. FERRITIN Routine 08/07/2017 4:19 AM Results for this CDT procedure are in the results section. IRON, TIBC, % SAT. Routine 08/07/2017 4:19 AM Results for this (WITHOUT FERRITIN) CDT procedure are in the results section. B-TYPE NATRIURETIC Routine 08/07/2017 4:19 AM Results for this FACTOR (BNP) CDT procedure are in the results section. CALCIUM, IONIZED Routine 08/07/2017 4:19 AM Results for this CDT procedure are in the results section. CBC W/PLT COUNT & AUTO STAT 08/07/2017 4:19 AM Results for this DIFFERENTIAL CDT procedure are in the results section. PHOSPHORUS STAT 08/07/2017 4:19 AM Results for this CDT procedure are in the results section. MAGNESIUM STAT 08/07/2017 4:19 AM Results for this CDT procedure are in the results section. BASIC METABOLIC PANEL Routine 08/07/2017 4:19 AM Results for this (7) CDT procedure are in the results section. POCT-GLUCOSE METER Routine 08/06/2017 8:43 PM Results for this CDT procedure are in the results section. URINALYSIS W/ Routine 08/06/2017 5:50 PM Results for this MICROSCOPIC CDT procedure are in the results section. CREATININE, RANDOM Routine 08/06/2017 5:50 PM Results for this URINE CDT procedure are in the results section. PROTEIN, RANDOM URINE Routine 08/06/2017 5:50 PM Results for this CDT procedure are in the results section. TRANSFUSION SERVICE 08/06/2017 5:41 PM REPORT - SCAN CDT POCT-GLUCOSE METER Routine 08/06/2017 5:07 PM Results for this CDT procedure are in the results section. POCT-GLUCOSE METER Routine 08/06/2017 12:24 PM Results for this CDT procedure are in the results section. TRANSFUSE Routine 08/06/2017 8:51 AM LEUKO-REDUCED RED CDT BLOOD CELLS POCT-GLUCOSE METER Routine 08/06/2017 7:59 AM Results for this CDT procedure are in the results section. CBC W/PLT COUNT & AUTO STAT 08/06/2017 3:27 AM Results for this DIFFERENTIAL CDT procedure are in the results section. FIBRINOGEN Routine 08/06/2017 3:27 AM Results for this CDT procedure are in the results section. APTT Routine 08/06/2017 3:27 AM Results for this CDT procedure are in the results section. PROTHROMBIN TIME/INR Routine 08/06/2017 3:27 AM Results for this CDT procedure are in the results section. CBC W/PLT COUNT & AUTO STAT 08/06/2017 3:27 AM Results for this DIFFERENTIAL CDT procedure are in the results section. PHOSPHORUS STAT 08/06/2017 3:27 AM Results for this CDT procedure are in the results section. MAGNESIUM STAT 08/06/2017 3:27 AM Results for this CDT procedure are in the results section. BASIC METABOLIC PANEL Routine 08/06/2017 3:27 AM Results for this (7) CDT procedure are in the results section. POCT-GLUCOSE METER Routine 08/05/2017 1:18 PM Results for this CDT procedure are in the results section. BASIC METABOLIC PANEL Routine 08/05/2017 1:07 PM Results for this (7) CDT procedure are in the results section. SODIUM NA-STAT LAB STAT 08/05/2017 1:07 PM Results for this CDT procedure are in the results section. POTASSIUM-STAT LAB STAT 08/05/2017 1:07 PM Results for this CDT procedure are in the results section. PREPARE RBC STAT 08/05/2017 12:53 PM Results for this CDT procedure are in the results section. HGB/HCT (H&H) - STAT STAT 08/05/2017 12:23 PM Results for this LAB CDT procedure are in the results section. POCT-ACT Routine 08/05/2017 9:29 AM Results for this CDT procedure are in the results section. HGB/HCT (H&H) - STAT STAT 08/05/2017 8:08 AM Results for this LAB CDT procedure are in the results section. GLUCOSE-STAT LAB STAT 08/05/2017 8:08 AM Results for this CDT procedure are in the results section. POTASSIUM-STAT LAB STAT 08/05/2017 8:08 AM Results for this CDT procedure are in the results section. SODIUM NA-STAT LAB STAT 08/05/2017 8:08 AM Results for this CDT procedure are in the results section. BLOOD GAS, ARTERIAL STAT 08/05/2017 8:08 AM Results for this CDT procedure are in the results section. RRL CRITICAL LABS STAT 08/05/2017 8:08 AM Results for this (ABG,NA,K,H&H,GLUCOSE) CDT procedure are in the results section. BYPASS,FEMORAL-POPLITE 08/05/2017 7:30 AM Peripheral vascular AL CDT disease (HCC) POCT-GLUCOSE METER Routine 08/05/2017 6:58 AM Results for this CDT procedure are in the results section. CBC W/PLT COUNT & AUTO STAT 08/05/2017 6:54 AM Results for this DIFFERENTIAL CDT procedure are in the results section. TYPE AND SCREEN, STAT 08/05/2017 6:54 AM Results for this AUTOMATED CDT procedure are in the results section. CBC W/PLT COUNT & AUTO STAT 08/05/2017 6:54 AM Results for this DIFFERENTIAL CDT procedure are in the results section. BASIC METABOLIC PANEL STAT 08/05/2017 6:54 AM Results for this (7) CDT procedure are in the results section. VASCULAR DIAGRAM -SCAN 07/11/2017 3:30 PM CDT VASCULAR DIAGRAM -SCAN 06/13/2017 2:53 PM CDT MAGNESIUM Routine 06/10/2017 12:06 PM Acute on chronic Results for this CDT diastolic ACC/AHA procedure are in stage C congestive the results heart failure (HCC) section. B-TYPE NATRIURETIC STAT 06/10/2017 12:06 PM Acute on chronic Results for this FACTOR (BNP) CDT diastolic ACC/AHA procedure are in stage C congestive the results heart failure (HCC) section. BASIC METABOLIC PANEL STAT 06/10/2017 12:06 PM Acute on chronic Results for this (7) CDT diastolic ACC/AHA procedure are in stage C congestive the results heart failure (HCC) section. RHYTHM STRIP - SCAN 06/05/2017 12:40 PM ASSISTANT SURVEYOR RHYTHM STRIP - SCAN 06/03/2017 2:03 PM ASSISTANT SURVEYOR RHYTHM STRIP - SCAN 06/03/2017 2:02 PM ASSISTANT SURVEYOR VASCULAR DIAGRAM -SCAN 06/03/2017 2:02 PM ASSISTANT SURVEYOR VASCULAR DIAGRAM -SCAN 06/03/2017 2:02 PM ASSISTANT SURVEYOR VASCULAR DIAGRAM -SCAN 06/03/2017 2:02 PM ASSISTANT SURVEYOR POCT-GLUCOSE METER Routine 06/01/2017 11:48 AM Results for this ASSISTANT SURVEYOR procedure are in the results section. POCT-GLUCOSE METER Routine 06/01/2017 7:17 AM Results for this ASSISTANT SURVEYOR procedure are in the results section. CBC (HEMOGRAM ONLY) Routine 06/01/2017 4:07 AM Results for this ASSISTANT SURVEYOR procedure are in the results section. BASIC METABOLIC PANEL Routine 06/01/2017 4:07 AM Results for this (7) ASSISTANT SURVEYOR procedure are in the results section. POCT-GLUCOSE METER Routine 05/31/2017 8:55 PM Results for this ASSISTANT SURVEYOR procedure are in the results section. POCT-GLUCOSE METER Routine 05/31/2017 4:29 PM Results for this ASSISTANT SURVEYOR procedure are in the results section. POCT-GLUCOSE METER Routine 05/31/2017 1:14 PM Results for this ASSISTANT SURVEYOR procedure are in the results section. POCT-GLUCOSE METER Routine 05/31/2017 6:43 AM Results for this ASSISTANT SURVEYOR procedure are in the results section. XR CHEST 1 VIEW Routine 05/31/2017 5:46 AM Results for this PORTABLE/BEDSIDE ASSISTANT SURVEYOR procedure are in the results section. CBC W/PLT COUNT & AUTO Routine 05/31/2017 4:04 AM Results for this DIFFERENTIAL ASSISTANT SURVEYOR procedure are in the results section. CBC W/PLT COUNT & AUTO Routine 05/31/2017 4:04 AM Results for this DIFFERENTIAL ASSISTANT SURVEYOR procedure are in the results section. PHOSPHORUS Routine 05/31/2017 4:04 AM Results for this ASSISTANT SURVEYOR procedure are in the results section. MAGNESIUM Routine 05/31/2017 4:04 AM Results for this ASSISTANT SURVEYOR procedure are in the results section. CALCIUM, IONIZED Routine 05/31/2017 4:04 AM Results for this ASSISTANT SURVEYOR procedure are in the results section. BASIC METABOLIC PANEL Routine 05/31/2017 4:04 AM Results for this (7) ASSISTANT SURVEYOR procedure are in the results section. POCT-GLUCOSE METER Routine 05/30/2017 8:43 PM Results for this ASSISTANT SURVEYOR procedure are in the results section. POCT-GLUCOSE METER Routine 05/30/2017 4:39 PM Results for this ASSISTANT SURVEYOR procedure are in the results section. POCT-GLUCOSE METER Routine 05/30/2017 11:36 AM Results for this ASSISTANT SURVEYOR procedure are in the results section. XR CHEST 1 VIEW Routine 05/30/2017 9:10 AM Results for this PORTABLE/BEDSIDE ASSISTANT SURVEYOR procedure are in the results section. POCT-GLUCOSE METER Routine 05/30/2017 6:55 AM Results for this ASSISTANT SURVEYOR procedure are in the results section. CALCIUM, IONIZED Routine 05/30/2017 4:11 AM Results for this ASSISTANT SURVEYOR procedure are in the results section. CBC W/PLT COUNT & AUTO Routine 05/30/2017 4:00 AM Results for this DIFFERENTIAL ASSISTANT SURVEYOR procedure are in the results section. CBC W/PLT COUNT & AUTO Routine 05/30/2017 4:00 AM Results for this DIFFERENTIAL ASSISTANT SURVEYOR procedure are in the results section. BASIC METABOLIC PANEL Routine 05/30/2017 4:00 AM Results for this (7) ASSISTANT SURVEYOR procedure are in the results section. PHOSPHORUS Routine 05/30/2017 4:00 AM Results for this ASSISTANT SURVEYOR procedure are in the results section. MAGNESIUM Routine 05/30/2017 4:00 AM Results for this ASSISTANT SURVEYOR procedure are in the results section. POCT-GLUCOSE METER Routine 05/29/2017 9:57 PM Results for this ASSISTANT SURVEYOR procedure are in the results section. CARDIAC CATH REPORT - 05/29/2017 8:50 PM SCAN ASSISTANT SURVEYOR POCT-GLUCOSE METER Routine 05/29/2017 6:16 PM Results for this ASSISTANT SURVEYOR procedure are in the results section. POCT-GLUCOSE METER Routine 05/29/2017 11:58 AM Results for this ASSISTANT SURVEYOR procedure are in the results section. POCT-GLUCOSE METER Routine 05/29/2017 7:30 AM Results for this ASSISTANT SURVEYOR procedure are in the results section. CBC W/PLT COUNT & AUTO Routine 05/29/2017 4:23 AM Results for this DIFFERENTIAL ASSISTANT SURVEYOR procedure are in the results section. CBC W/PLT COUNT & AUTO Routine 05/29/2017 4:23 AM Results for this DIFFERENTIAL ASSISTANT SURVEYOR procedure are in the results section. PHOSPHORUS Routine 05/29/2017 4:23 AM Results for this ASSISTANT SURVEYOR procedure are in the results section. MAGNESIUM Routine 05/29/2017 4:23 AM Results for this ASSISTANT SURVEYOR procedure are in the results section. CALCIUM, IONIZED Routine 05/29/2017 4:23 AM Results for this ASSISTANT SURVEYOR procedure are in the results section. COMPREHENSIVE Routine 05/29/2017 4:23 AM Results for this METABOLIC PANEL ASSISTANT SURVEYOR procedure are in the results section. POCT-GLUCOSE METER Routine 05/28/2017 8:37 PM Results for this ASSISTANT SURVEYOR procedure are in the results section. TRANSFUSION SERVICE 05/28/2017 5:41 PM REPORT - SCAN ASSISTANT SURVEYOR POCT-GLUCOSE METER Routine 05/28/2017 5:25 PM Results for this ASSISTANT SURVEYOR procedure are in the results section. XR CHEST 1 VIEW STAT 05/28/2017 1:30 PM Results for this PORTABLE/BEDSIDE ASSISTANT SURVEYOR procedure are in the results section. POCT-GLUCOSE METER Routine 05/28/2017 11:48 AM Results for this ASSISTANT SURVEYOR procedure are in the results section. PERIPHERAL VASCULAR 05/28/2017 11:22 AM REPORT - SCAN ASSISTANT SURVEYOR POCT-GLUCOSE METER Routine 05/28/2017 8:29 AM Results for this ASSISTANT SURVEYOR procedure are in the results section. CAROTID DOPPLER Routine 05/28/2017 8:15 AM Results for this BILATERAL ASSISTANT SURVEYOR procedure are in the results section. CBC W/PLT COUNT & AUTO Routine 05/28/2017 4:14 AM Results for this DIFFERENTIAL ASSISTANT SURVEYOR procedure are in the results section. CBC W/PLT COUNT & AUTO Routine 05/28/2017 4:14 AM Results for this DIFFERENTIAL ASSISTANT SURVEYOR procedure are in the results section. PHOSPHORUS Routine 05/28/2017 4:14 AM Results for this ASSISTANT SURVEYOR procedure are in the results section. MAGNESIUM Routine 05/28/2017 4:14 AM Results for this ASSISTANT SURVEYOR procedure are in the results section. CALCIUM, IONIZED Routine 05/28/2017 4:14 AM Results for this ASSISTANT SURVEYOR procedure are in the results section. BASIC METABOLIC PANEL Routine 05/28/2017 4:14 AM Results for this (7) ASSISTANT SURVEYOR procedure are in the results section. POCT-GLUCOSE METER Routine 05/27/2017 8:51 PM Results for this ASSISTANT SURVEYOR procedure are in the results section. POCT-ACT Routine 05/27/2017 6:08 PM Results for this ASSISTANT SURVEYOR procedure are in the results section. POCT-ACT Routine 05/27/2017 5:24 PM Results for this ASSISTANT SURVEYOR procedure are in the results section. PERIPHERAL ANGIOS / 05/27/2017 2:53 PM chest pain AORTOGRAM ASSISTANT SURVEYOR POCT-GLUCOSE METER Routine 05/27/2017 12:36 PM Results for this ASSISTANT SURVEYOR procedure are in the results section. XR CHEST 1 VIEW CEZAR 05/27/2017 8:25 AM Results for this PORTABLE/BEDSIDE ASSISTANT SURVEYOR procedure are in the results section. POCT-GLUCOSE METER Routine 05/27/2017 7:03 AM Results for this ASSISTANT SURVEYOR procedure are in the results section. CBC W/PLT COUNT & AUTO Routine 05/27/2017 4:12 AM Results for this DIFFERENTIAL ASSISTANT SURVEYOR procedure are in the results section. TYPE AND SCREEN, Routine 05/27/2017 4:12 AM Results for this AUTOMATED ASSISTANT SURVEYOR procedure are in the results section. CBC W/PLT COUNT & AUTO Routine 05/27/2017 4:12 AM Results for this DIFFERENTIAL ASSISTANT SURVEYOR procedure are in the results section. PHOSPHORUS Routine 05/27/2017 4:12 AM Results for this ASSISTANT SURVEYOR procedure are in the results section. MAGNESIUM Routine 05/27/2017 4:12 AM Results for this ASSISTANT SURVEYOR procedure are in the results section. CALCIUM, IONIZED Routine 05/27/2017 4:12 AM Results for this ASSISTANT SURVEYOR procedure are in the results section. BASIC METABOLIC PANEL Routine 05/27/2017 4:12 AM Results for this (7) ASSISTANT SURVEYOR procedure are in the results section. POCT-GLUCOSE METER Routine 05/26/2017 9:08 PM Results for this ASSISTANT SURVEYOR procedure are in the results section. POCT-GLUCOSE METER Routine 05/26/2017 5:42 PM Results for this ASSISTANT SURVEYOR procedure are in the results section. POCT-GLUCOSE METER Routine 05/26/2017 1:19 PM Results for this ASSISTANT SURVEYOR procedure are in the results section. XR CHEST 1 VIEW CEZAR 05/26/2017 8:15 AM Results for this PORTABLE/BEDSIDE ASSISTANT SURVEYOR procedure are in the results section. POCT-GLUCOSE METER Routine 05/26/2017 7:32 AM Results for this ASSISTANT SURVEYOR procedure are in the results section. CBC W/PLT COUNT & AUTO Routine 05/26/2017 4:03 AM Results for this DIFFERENTIAL ASSISTANT SURVEYOR procedure are in the results section. CBC W/PLT COUNT & AUTO Routine 05/26/2017 4:03 AM Results for this DIFFERENTIAL ASSISTANT SURVEYOR procedure are in the results section. BASIC METABOLIC PANEL Routine 05/26/2017 4:03 AM Results for this (7) ASSISTANT SURVEYOR procedure are in the results section. PHOSPHORUS Routine 05/26/2017 4:03 AM Results for this ASSISTANT SURVEYOR procedure are in the results section. MAGNESIUM Routine 05/26/2017 4:03 AM Results for this ASSISTANT SURVEYOR procedure are in the results section. CALCIUM, IONIZED Routine 05/26/2017 4:03 AM Results for this ASSISTANT SURVEYOR procedure are in the results section. POCT-GLUCOSE METER Routine 05/25/2017 11:41 PM Results for this ASSISTANT SURVEYOR procedure are in the results section. POCT-GLUCOSE METER Routine 05/25/2017 3:49 PM Results for this ASSISTANT SURVEYOR procedure are in the results section. CBC W/PLT COUNT & AUTO Routine 05/25/2017 4:38 AM Results for this DIFFERENTIAL ASSISTANT SURVEYOR procedure are in the results section. CBC W/PLT COUNT & AUTO Routine 05/25/2017 4:38 AM Results for this DIFFERENTIAL ASSISTANT SURVEYOR procedure are in the results section. BASIC METABOLIC PANEL Routine 05/25/2017 4:38 AM Results for this (7) ASSISTANT SURVEYOR procedure are in the results section. PHOSPHORUS Routine 05/25/2017 4:38 AM Results for this ASSISTANT SURVEYOR procedure are in the results section. MAGNESIUM Routine 05/25/2017 4:38 AM Results for this ASSISTANT SURVEYOR procedure are in the results section. CALCIUM, IONIZED Routine 05/25/2017 4:38 AM Results for this ASSISTANT SURVEYOR procedure are in the results section. XR CHEST 1 VIEW CEZAR 05/25/2017 4:12 AM Results for this PORTABLE/BEDSIDE ASSISTANT SURVEYOR procedure are in the results section. after 05/25/2017 Results RHYTHM STRIP - SCAN (09/08/2017 3:04 PM CDT)Only the most recent of5 resultswithin the time period is included. Narrative Performed At POC-Glucose meter (09/05/2017 5:05 PM CDT)Only the most recent of55 resultswithin the time period is included. POC-Glucose Meter 220 (H)Comment: TESTED AT 70 - 110 mg/dL [facility] [address] [facility] [id number] Specimen Blood Performing Organization Address City/State/Zipcode Phone Number [address] [address] [phone] CENTER ECHOCARDIOGRAM REPORT - SCAN (09/05/2017 3:50 PM CDT) Narrative Performed At Basic Metabolic Panel (09/05/2017 3:14 PM CDT)Only the most recent of20 resultswithin the time period is included. Sodium 135 (L) 136 - 145 meq/L [facility] Potassium 4.8 3.5 - 5.1 meq/L [facility] Chloride 102 98 - 107 meq/L [facility] CO2 25 22 - 29 meq/L [facility] BUN 51 (H) 7 - 21 mg/dL [facility] Creatinine 1.99 (H) 0.57 - 1.25 mg/dL [facility] Glucose 201 (H) 70 - 105 mg/dL [facility] Calcium 8.8 8.4 - 10.2 mg/dL [facility] EGFR 25Comment: ESTIMATED GFR IS mL/min/1.73 sq m [facility] NOT ACCURATE CREATININE [facility] C[facility] CLEARANCE IN PREDICTING GLOMERULAR FILTRATION RATE. ESTIMATED GFR IS NOT APPLICABLE FOR DIALYSIS PATIENTS. Specimen Blood - Arm, Right Performing Organization Address City/State/Zipcode Phone Number [facility] [address] [place] [address] CENTER 2D Echo W/Doppler(CW/PW/Color) (09/05/2017 11:25 AM CDT) Ejection Fraction [facility] Narrative Performed At Transthoracic Echocardiography Report (TTE) [facility] [employer] [facility] 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 Mild concentric LV hy pertrophy. Septal motion is abnormal, likely re lated to prior cardiac surgery. Basal to apical in ferior wall is hypokinetic. The other segments co ntract normally. Global LV systolic function low no rmal . LVEF by Silverman's method of disk as sessment is low normal (50 - 55) . Th e LVEF was measured using Silverman's bi-plane me thod of disk .Normal (cardiac index 2-3 L/min/m2) ca rdiac output state at rest is noted. Grade 2 di astolic dysfunction (moderately increased LA pr essure). Left AtriumLA size is severely enlarged (>48 ml/m2) . Right VentricleRV chamber size is normal . Gl obal RV systolic function is mildly reduced . Right Atrium RA cavity size is mildly enlarged . Aortic Valve Mild AoV cusp thickening. Mi ld AoV cusp calcification. Ao rtic valve sclerosis. Ao V area at rest by continuity equation is in the ra nge of 1.66 cm2. Mitral Valve Mild MV leaflet thickening. Mi ld mitral regurgitation. Tricuspid ValveTrace tricuspid regurgitation. Es timated peak systolic PA pressure is 35-40 mmHg . Pulmonic Valve Normal PV structure and function. Mi ld pulmonary regurgitation. AortaAortic root size (SInus of Valsalva diameter) is no rmal . Pr oximal ascending aorta size is normal . PericardiumA trivial pericardial effusion issuspected anterior . IVC/SVC/PA/PV/PleuralPulmonary vein flow is consistent with increased LA P . Th e estimated RA pressure by IVC dynamics 5-10mmHg . Chambers/Structures Left Atrium LA Volume: 107.54 mlLA Area: 29.14 cm^2 LA Vol. Index: 57 ml/m^2 Left Ventricle LVIDd: 4.42 cm LV Septum Diastolic: 1.78 cm LV PW Diastolic: 1.77 cm LVEDV Silverman's:135.13 ml LVESV Silverman's:64.96 ml LVEF Silverman's: 52.2 %LVEDV I: 72 ml/m^2 LVESVI: 35 ml/m^2 LVOT Diameter: 2 cm Right Atrium RA Vol. (Sngl Plane): 56.82 ml Right Ventricle TAPSE: 1.17 cm Aorta Ao Root S of Patty.: 3.25 cmAscending Aorta: 3.19 cm Doppler/Quantitative Measurements Mitral Valve MV Peak E-Wave: 1.47 m/sMV Peak A-Wave: 0.76 m/s E/A Ratio: 1.93 [...] Study 09/05/2017 BETO Gender Female Visit Number [id number] Race Room Number 1047 Number Date of 1955 Referring Physician Kelly Chang MD Age 62 year(s) Transplant Rn Teressa Underwood [facility] [employer] Machine Operator Leighton Mendoza Interpreting Tien Del Castillo MD [...] Velocity: 2.76 m/s TR Gradient: 30.38 mmHg Performing Organization Address City/[facility]/Zipcode Phone Number [facility] Calcium, Ionized (09/05/2017 5:27 AM CDT)Only the most recent of12 resultswithin the time period is included. Calcium, Ion 1.11 (L) 1.12 - 1.27 mmol/L [facility] pH, Blood 7.40 [facility] Specimen Blood - Arm, Right Performing Organization Address [facility] Phone Number [facility] [address] [place] [address] CENTER CBC with platelet count + automated diff (09/05/2017 5:27 AM CDT)Only the most recent of16 resultswithin the time period is included. WBC 7.1 3.5 - 10.5 K/L [facility] RBC 3.68 (L) 3.93 - 5.22 M/L [facility] Hemoglobin 9.0 (L) 11.2 - 15.7 GM/DL [facility] Hematocrit 29.6 (L) 34.1 - 44.9 % [facility] MCV 80.4 79.4 - 94.8 fL [facility] MCH 24.5 (L) 25.6 - 32.2 pg [facility] MCHC 30.4 (L) 32.2 - 35.5 GM/DL [facility] RDW 16.5 (H) 11.7 - 14.4 % [facility] Platelets 215 150 - 450 K/CU MM [facility] MPV 9.5 9.4 - 12.3 fL [facility] nRBC 0 0 - 0 /100 WBC [facility] % Neutros 42 % [facility] % Lymphs 46 % [facility] % Monos 6 % [facility] % Eos 5 % [facility] % Baso 1 % [facility] # Neutros 2.96 1.56 - 6.13 K/L [facility] # Lymphs 3.27 1.18 - 3.74 K/L [facility] # Monos 0.41 (H) 0.24 - 0.36 K/L [facility] # Eos 0.34 0.04 - 0.36 K/L [facility] # Baso 0.08 0.01 - 0.08 K/L [facility] Immature Granulocytes-Relative 0 0 - 1 % [facility] Specimen Blood - Arm, Right Performing Organization Address City/State/[place] [address] HASTY Lactic acid, venous, whole blood (09/05/2017 5:27 AM CDT) Lactate, Venous 0.8 0.5 - 2.2 mmol/L [facility] Specimen Blood - Arm, Right Narrative Performed At [facility] Effective 08/02/2015: Units/Reference Range Change New: 0.5-2.2 mmol/LPrevious: 5-20 mg/dL Performing Organization Address City/[facility]/Zipcode Phone Number [address] [address] CENTER Phosphorus (09/05/2017 5:27 AM CDT)Only the most recent of13 resultswithin the time period is included. Phosphorus 5.1 (H) 2.3 - 4.7 mg/dL [facility] Specimen Blood - Arm, Right Performing Organization Address City/State/Zipcode Phone Number [facility] [address] [place] [address] [phone] CENTER Magnesium (09/05/2017 5:27 AM CDT)Only the most recent of15 resultswithin the time period is included. Magnesium 2.0 1.6 - 2.6 mg/dL [facility] Specimen Blood - Arm, Right Performing Organization Address [facility]/State/Zipcode Phone Number [facility] [address] [place] [address] CENTER XR sacrum and coccyx 3 views min (09/04/2017 9:06 PM CDT) Narrative Performed At FINAL REPORT GE RIS RAD, SACRUM \\T\\ COCCYX, MIN 3 VIEWS [...] MD Report Verified Date/Time:09/04/2017 21:22:03 Reading Location: [address] Reading Room Procedure Note Interface, External Ris [...] Report Verified Date/Time: 09/04/2017 21:22:03 Reading Location: [facility] [id number] Transitional Reading Room Performing Organization Address [facility] Hospitalcode Phone Number [employer] PERIPHERAL VASCULAR REPORT - SCAN (09/04/2017 7:20 AM CDT)Only the most recent of3 resultswithin the time period is included. Narrative Performed At Creatine Kinase (CK) (09/04/2017 4:18 AM CDT) Total CK 45 29 - 200 U/L [facility] Specimen Blood Performing Organization Address [facility] HospitalMonkeyseenc Phone Number [address] [address] [phone] [place] Protein, random urine (09/03/2017 7:17 PM CDT)Only the most recent of2 resultswithin the time period is included. Protein, Urine 102 (H) 0 - 14 mg/dL [facility] Specimen Urine Performing Organization Address [facility] HospitalcoZocere Phone Number [address] [address] CENTER Creatinine, random urine (09/03/2017 7:17 PM CDT)Only the most recent of3 resultswithin the time period is included. Creatinine, Ur 16.1 mg/dL [facility] Specimen Urine Narrative Performed At [facility] Reference Range: No Normals Performing Organization Address [facility]/State/Zipcode Phone Number [facility] [address] [place] [address] CENTER Arterial doppler leg, right (09/03/2017 5:30 PM CDT) Ejection Fraction [facility] [employer] CPA Impressions Performed At Right Impression [facility] 1. The common femoral and profunda femoral [...] + + + !Mid Common Femoral ! !168! ! ! + + + + + + !Prox PFA ! !181! ! ! + + + + + + !Mid SFA ! !13 !! ! + + + + + + !Dist SFA ! !36.4 !! ! + + + + + + !Dist Popliteal ! !102! ! ! + + + + + + !Prox SENIOR PUBLICATIONS SPECIALIST ! !62.9 !! ! + + + + + + !Mid SENIOR PUBLICATIONS SPECIALIST ! !71.1 !! ! + + + + + + !Dist SENIOR PUBLICATIONS SPECIALIST ! !61.3 !! ! + + + [...] + + + + + + Narrative Performed At [facility] - Lower Extremity Arterial Duplex [facility] Demographics Patient Name Elif GREER of Study 09/03/2017 BETO [id number] Age 62 Visit Number [id number] Female Accession Number [id number] of 1955 [facility]47 Physician SonographerBelemther Elma Vargas T Physician , RPVI Procedure Type of Study: Extremities Arteries: Lower Extremities Arterial Duplex, ARTERIAL DOPPLER LEG, RIGHT. Indications for Study:Pain and Post op. Patient Status:Routine. Study Location:Portable. Technical Quality:Adequate visualization. Risk Factors History of Disease + + + + !Diagnosis !Date!Comments ! + + + + !History/Risk!05/13/2017!S/P Heart stent placement 05/12/17, Cardiomegaly,! !Factors:!!CHF, COPD, CAD, DM, HLD, HTN, Smoker, Left great! !! 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 !! !graft ! + + + + Procedure Note Interface, External Ris In - 09/04/2017 4:41 AM CDT PV LAB - Lower Extremity Arterial Duplex Demographics Patient Name CHRISTY GREER Date of Study 09/03/2017 BETO Age 62 Visit Number [id number] Gender Female Accession Number [id number] Date of 1955 Referring Bernardo Vargas Room Number 1047 Physician Transplant Rn Karma Whitaker Interpreting Elma Yoon T Physician , RPVI Procedure Type of [...] + + + -------+ + + !Prox SENIOR PUBLICATIONS SPECIALIST ! !62.9 ! ! ! + + + -------+ + + !Mid SENIOR PUBLICATIONS SPECIALIST ! !71.1 ! ! ! + + + -------+ + + !Dist SENIOR PUBLICATIONS SPECIALIST ! !61.3 ! ! ! + + [...] ! + + + -------+ + + Performing Organization Address City/[facility] Phone Number [facility] CPACS ECG 12 lead (09/03/2017 8:28 AM CDT)Only the most recent of2 resultswithin the time period is included. Narrative Performed At Ventricular Rate 65 BPM GE MUSE Atrial Rate 65 BPM P-R Interval 172 ms QRS Duration 104 ms Q-T Interval 472 ms QTC Calculation(Bazett) 490 ms P Pinewood 91 degrees R Pinewood 1 degrees T [place] 133 degrees Normal sinus rhythm Possible Left atrial enlargement Possible Anterior infarct (cited on or before 18-MAY-2017) ST & T wave abnormality, consider lateral ischemia Abnormal ECG When compared with ECG of 02-SEP-2017 22:48, No significant change was found Confirmed by MD POTTS JORGE ([id number]) on 09/04/2017 12:49:44 PM Procedure Note Interface, External Ris In - 09/04/2017 12:49 PM CDT Ventricular Rate 65 BPM Atrial Rate 65 BPM P-R Interval 172 ms QRS Duration 104 ms Q-T Interval 472 ms QTC Calculation(Bazett) 490 ms P [place] 91 degrees R [place]wood 1 degrees T [place] 133 degrees Normal sinus rhythm Possible Left atrial enlargement Possible Anterior infarct (cited on or before 18-MAY-2017) ST & T wave abnormality, consider lateral ischemia Abnormal ECG When compared with ECG of 02-SEP-2017 22:48, No significant change was found Confirmed by MD POTTS JORGE ([id number]) on 09/04/2017 12:49:44 PM Performing Organization Address [facility] Hospital[facility]enc Phone Number [employer] MUSE Troponin I (09/03/2017 4:35 AM CDT)Only the most recent of2 resultswithin the time period is included. Troponin I 0.05 (H) 0.00 - 0.03 ng/mL [facility] Specimen Blood - Arm, Right Narrative Performed At [facility] Troponin I (TnI) levels must be interpreted [...] acidosis, acute neurological disease, and persistent tachyarrhythmia. Performing Organization Address City/State/[facility] Hospitalcode Phone Number [address] [address] [phone] [place] Hepatic function panel (09/03/2017 4:35 AM CDT) Protein, Total 6.8 6.0 - 8.3 gm/dL [facility] Albumin 2.9 (L) 3.5 - 5.0 g/dL [facility] Total Bilirubin 0.5 0.2 - 1.2 mg/dL [facility] Bilirubin, Direct 0.2 0.1 - 0.5 mg/dL [facility] Alkaline Phosphatase 173 (H) 40 - 150 U/L [facility] AST 25 5 - 34 U/L [facility] ALT 23 6 - 55 U/L [facility] Specimen Blood - Arm, Right Performing Organization Address City/[facility] Phone Number [address] [phone] [place] XR chest 1 view portable / bedside (09/02/2017 8:47 PM CDT)Only the most recent of8 resultswithin the time period is included. Narrative Performed At FINAL REPORT [facility] RAD, CHEST, 1 VIEW, NON DEPT INDICATION: CHEST PAIN COMPARISON: Chest x-ray 4 weeks ago TECHNIQUE: Single frontal view of the chest. IMPRESSION: Cardiomegaly. Mild pulmonary interstitial edema with a small right-sided effusion. No acute osseous abnormality. Signed: Kristin Abraham MD Report Verified Date/Time:09/02/2017 21:42:11 Reading Location: [address] Transitional Reading Room Procedure Note Interface, External Ris In - 09/02/2017 9:44 PM CDT FINAL REPORT RAD, CHEST, 1 VIEW, NON DEPT INDICATION: CHEST PAIN COMPARISON: Chest x-ray 4 weeks ago TECHNIQUE: Single frontal view of the chest. IMPRESSION: Cardiomegaly. Mild pulmonary interstitial edema with a small right-sided effusion. No acute osseous abnormality. Signed: Kristin Abraham MD Report Verified Date/Time: 09/02/2017 21:42:11 Reading Location: [address] Transitional Reading Room Performing Organization Address City/[facility]/Zipcode Phone Number GE RIS Sodium, random urine (09/02/2017 8:43 PM CDT) Sodium Urine 80 meq/L [facility] Specimen Urine Narrative Performed At [facility] Reference Range: No Normals Performing Organization Address City/[facility] [place] [address] [phone] CENTER Urinalysis w/Microscopic (09/02/2017 8:43 PM CDT)Only the most recent of2 resultswithin the time period is included. Color, UA Light Yellow [facility] Clarity, UA Clear [facility] Specific [place], UA 1.008 1.001 - 1.035 [facility] pH, UA 6.5 5.0 - 8.0 [facility] Protein, UA 200 mg/dL (A) Negative [facility] Glucose, UA 70 mg/dL (A) Negative [facility] Ketones, UA Negative Negative [facility] Bilirubin, UA Negative Negative [facility] Blood, UA Negative Negative [facility] Nitrite, UA Negative Negative [facility] Leukocytes, UA Negative Negative [facility] Urobilinogen, UA 0.2 0.2 - 1.0 mg/dL [facility] RBC, UA <1 /HPF [facility] WBC, UA 2 /HPF [facility] Bacteria, UA Occasional [facility] Mucus Rare [facility] Squam Epithel, UA 2 /HPF [facility] Hyaline Casts, UA 7 /LPF [facility] Specimen Source [facility] Specimen Urine Performing Organization Address City/State/Zipcode Phone Number [facility] [address] [place] [address] CENTER Venous doppler leg, right (09/02/2017 5:34 PM CDT) Ejection Fraction [facility] CPACS Impressions Performed At Right Impression [facility] CPACS 1. There is no deep venous obstruction [...] ; Diameters are measured in cm Narrative Performed At LAB - Lower Extremities DVT Study [facility] Demographics Patient Name CHRISTY GREER Date of Study09/02/2017 BETO [id number] Age62 Visit Number [id number] Gender Female Accession Number [id number] Date of Birth1955 ReferringBeers Catarino Zimmerman NumberED8 Physician SonChantel PetersonInterpreting Gurmeet Perez, T PhysicianMD, RPVI Procedure Type of Study: Veins: Lower Extremities DVT Study, VENOUS DOPPLER LEG, RIGHT. Indications for Study:Leg pain and Leg swelling. Patient Status:STAT. Study Location:Portable. Technical Quality:Adequate visualization. Risk Factors History of Disease + + + + !Diagnosis !Date!Comments ! + + + + !History/Risk!05/13/2017!S/P Heart stent placement 05/12/17, Cardiomegaly,! !Factors:!!CHF, COPD, CAD, DM, HLD, HTN, Smoker, Left great! !! 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 + + + + !Other !!Right Leg Femoral-Popliteal Bypass Graft! + + + + Procedure Note Interface, External Ris In - 09/02/2017 6:17 PM CDT PV LAB - Lower Extremities DVT Study Demographics Patient Name CHRISTY GREER Date of Study 09/02/2017 BETO Age 62 Visit Number [id number] Gender Female Accession Number [id number] Date of 1955 Referring Edward Levi Room Number ED8 Physician Transplant Rn Jose Cruz Peterson Interpreting Gurmeet Perez T Physician , RPVI Procedure Type of [...] cm/s ; Diameters are measured in cm Performing Organization Address City/State/Zipcode Phone Number [facility] PT/aPTT (09/02/2017 4:15 PM CDT) Protime 14.4 11.7 - 14.7 seconds [facility] INR 1.1 <=5.9 [facility] PTT 31.0 22.5 - 36.0 seconds [facility] Specimen Blood - Arm, Right Narrative Performed At [facility] RECOMMENDED COUMADIN/WARFARIN INR THERAPY RANGES STANDARD DOSE: 2.0 - 3.0 Includes: PROPHYLAXIS for venous thrombosis, systemic embolization; TREATMENT for venous thrombosis and/or pulmonary embolus. HIGH RISK: Target INR is 2.5-3.5 for patients with mechanical heart valves. Performing Organization Address City/[facility] Phone Number [address] [address] [phone] CENTER B N P (09/02/2017 1:18 PM CDT)Only the most recent of3 resultswithin the time period is included. BNP 1,942 (H) 0 - 100 pg/mL [facility] Specimen Blood Performing Organization Address [facility] Phone Number [address] [phone] [place] TRANSFUSION SERVICE REPORT - SCAN (08/08/2017 5:41 PM CDT)Only the most recent of4 resultswithin the time period is included. Narrative Performed At Prepare Leuko-Red RBC (08/07/2017 11:54 PM CDT) CROSSMATCH COMPATIBLE SAFETRACE TX Unit ABO O Pos SAFETRACE TX UNIT NUMBER [id number] SAFETRACE TX Status TRANSFUSED SAFETRACE TX Blood Bank Product RED BLOOD CELLS SAFETRACE TX PRODUCT CODE [id number] SAFETRACE TX Specimen Other Performing Organization Address City/[facility] Phone Number SAFETRACE TX Iron, TIBC, % sat. (without ferritin) (08/07/2017 4:19 AM CDT) Iron 21 (L) 40 - 160 ug/dL [facility] TIBC 184 (L) 250 - 450 ug/dL [facility] Iron % Saturation 11 (L) 20 - 55 % [facility] Specimen Blood Performing Organization Address [facility] Phone Number [address] [address] CENTER Reticulocyte count (08/07/2017 4:19 AM CDT) % Retic 1.2 0.5 - 1.7 % [facility] Specimen Blood Performing Organization Address [facility] Phone Number [address] [address] CENTER Ferritin (08/07/2017 4:19 AM CDT) Ferritin 87 5 - 275 ng/mL [facility] Specimen Blood Performing Organization Address [facility] Phone Number [address] [address] CENTER Transfuse Leuko-Red RBC (08/06/2017 8:51 AM CDT)Only the most recent of2 resultswithin the time period is included.aPTT (08/06/2017 3:27 AM CDT) PTT 37.7 (H) 22.5 - 36.0 seconds [facility] Specimen Blood Performing Organization Address [facility] Phone Number [address] [address] CENTER Prothromin time/INR (08/06/2017 3:27 AM CDT) Protime 16.2 (H) 11.7 - 14.7 seconds [facility] INR 1.3 <=5.9 [facility] Specimen Blood Narrative Performed At [facility] RECOMMENDED COUMADIN/WARFARIN INR THERAPY RANGES STANDARD DOSE: 2.0 - 3.0 Includes: PROPHYLAXIS for venous thrombosis, systemic embolization; TREATMENT for venous thrombosis and/or pulmonary embolus. HIGH RISK: Target INR is 2.5-3.5 for patients with mechanical heart valves. Performing Organization Address [facility] Phone Number [address] [phone] CENTER Fibrinogen (08/06/2017 3:27 AM CDT) Fibrinogen 548 (H) 225 - 434 mg/dl [facility] Specimen Blood Performing Organization Address [facility] Phone Number [address] [address] CENTER Potassium-Stat Lab (08/05/2017 1:07 PM CDT)Only the most recent of2 resultswithin the time period is included. Potassium 4.2 3.6 - 5.5 meq/L [facility] Specimen Blood, Arterial Performing Organization Address [facility] Number [address] [address] [phone] CENTER Sodium Na-Stat Lab (08/05/2017 1:07 PM CDT)Only the most recent of2 resultswithin the time period is included. Sodium 133 (L) 135 - 148 meq/L [facility] Specimen Blood, Arterial Performing Organization Address [facility] Number [address] [phone] CENTER Prepare RBC (08/05/2017 12:53 PM CDT) CROSSMATCH COMPATIBLE SAFETRACE TX Unit ABO O Pos SAFETRACE TX UNIT NUMBER [id number] SAFETRACE TX Status RETURNED FROM ISSUE SAFETRACE TX Blood Bank Product RED BLOOD CELLS SAFETRACE TX PRODUCT CODE [id number] SAFETRACE TX CROSSMATCH COMPATIBLE SAFETRACE TX Unit ABO O Pos SAFETRACE TX UNIT NUMBER [id number] SAFETRACE TX Status RETURNED FROM ISSUE SAFETRACE TX Blood Bank Product RED BLOOD CELLS SAFETRACE TX PRODUCT CODE [id number] SAFETRACE TX Performing Organization Address [facility] Phone Number SAFETRACE TX HGB/HCT (H&H)-Stat Lab (08/05/2017 12:23 PM CDT)Only the most recent of2 resultswithin the time period is included. Hemoglobin 10.8 (L) 12.0 - 15.0 g/dL [facility] Hematocrit 32.0 (L) 36.0 - 45.0 % [facility] Specimen Blood, Arterial Performing Organization Address [facility] Phone Number [address] [address] [place] POC ACTIVATED CLOTTING TIME (08/05/2017 9:29 AM CDT)Only the most recent of3 resultswithin the time period is included. Activated Clotting Time 219Comment: TESTED AT sec [address] [address] Specimen Blood Performing Organization Address [facility] Phone Number [address] [address] [place] Glucose-Stat Lab (08/05/2017 8:08 AM CDT) Glucose 172 (H) 70 - 110 mg/dL [facility] Specimen Blood, Arterial Performing Organization Address [facility] Phone Number [address] [address] [place] Blood gas, arterial (08/05/2017 8:08 AM CDT) pH, Arterial 7.36 7.35 - 7.45 [facility] pCO2, Arterial 47 (H) 35 - 45 mmHg [facility] pO2, Arterial 213 (H) 80 - 90 mmHg [facility] O2 Sat, Arterial 99.4 (H) 96.0 - 97.0 % [facility] HCO3, Arterial 26 21 - 29 mmol/L [facility] Base Excess, Arterial 0.3 -2.0 - 3.0 mmol/L [facility] Patient Temperature 37.2 C [facility] FIO2 70.0 % [facility] Specimen Blood, Arterial Performing Organization Address City/State/Zipcode Phone Number [facility] [address] [place] [address] [phone] CENTER Type and screen, automated (08/05/2017 6:54 AM CDT)Only the most recent of2 resultswithin the time period is included. ABO/RH AUTOMATED (BEAKER) O POSITIVE [facility] Ab Scrn NEGATIVE [facility] Specimen Blood Performing Organization Address City/State/Zipcode Phone Number [facility] [address] [place] [address] [phone] VASCULAR DIAGRAM -SCAN (07/11/2017 3:30 PM CDT)Only the most recent of5 resultswithin the time period is included. Narrative Performed At CBC (Hemogram only) (06/01/2017 4:07 AM ASSISTANT SURVEYOR) WBC 6.4 3.5 - 10.5 K/L [facility] RBC 3.38 (L) 3.93 - 5.22 M/L [facility] Hemoglobin 8.7 (L) 11.2 - 15.7 GM/DL [facility] Hematocrit 28.2 (L) 34.1 - 44.9 % [facility] MCV 83.4 79.4 - 94.8 fL [facility] MCH 25.7 25.6 - 32.2 pg [facility] MCHC 30.9 (L) 32.2 - 35.5 GM/DL [facility] RDW 15.2 (H) 11.7 - 14.4 % [facility] Platelets 320 150 - 450 K/CU MM [facility] MPV 9.5 9.4 - 12.3 fL [facility] nRBC 0 0 - 0 /100 WBC [facility] Specimen Blood Performing Organization Address City/State/Zipcode Phone Number [facility] [address] [place] [address] CENTER CARDIAC CATH REPORT - SCAN (05/29/2017 8:50 PM ASSISTANT SURVEYOR) Narrative Performed At Comprehensive metabolic panel (05/29/2017 4:23 AM ASSISTANT SURVEYOR) Protein, Total 5.9 (L) 6.0 - 8.3 gm/dL [facility] Albumin 2.7 (L) 3.5 - 5.0 g/dL [facility] Alkaline Phosphatase 130 40 - 150 U/L [facility] Total Bilirubin 0.3 0.2 - 1.2 mg/dL [facility] Sodium 135 (L) 136 - 145 meq/L [facility] Potassium 4.7 3.5 - 5.1 meq/L [facility] Chloride 105 98 - 107 meq/L [facility] CO2 24 22 - 29 meq/L [facility] BUN 42 (H) 7 - 21 mg/dL [facility] Creatinine 1.78 (H) 0.57 - 1.25 mg/dL [facility] Glucose 129 (H) 70 - 105 mg/dL [facility] Calcium 8.5 8.4 - 10.2 mg/dL [facility] AST 23 5 - 34 U/L [facility] ALT 15 6 - 55 U/L [facility] EGFR 29Comment: ESTIMATED GFR mL/min/1.73 sq m [facility] IS NOT ACCURATE [facility] CREATININE CLEARANCE IN PREDICTING GLOMERULAR FILTRATION RATE. ESTIMATED GFR IS NOT APPLICABLE FOR DIALYSIS PATIENTS. Specimen Blood - Arm, Right Performing Organization Address City/State/Zipcode Phone Number [facility] [address] [place] [address] CENTER Carotid doppler bilateral (05/28/2017 8:15 AM ASSISTANT SURVEYOR) Ejection Fraction [facility] CPACS Impressions Performed At Right Impression [facility] CPACS 1. There is 50-69% diameter reduction (approximately [...] in cm Carotid Right Measurements + +----+----+-----+ +---- + + !Location !PSV !EDV !Angle!%Stenosis 2D!%Stenosis Doppler!Tortuosity ! + +----+----+-----+ +---- + + !Prox CCA !88.5!15.2!60 !! ! ! + +----+----+-----+ +---- + + !Dist CCA !73.3!14.1!60 !! ! ! + +----+----+-----+ +---- + + !Prox ICA !149 !57.4!60 !! ! ! + +----+----+-----+ +---- + + !Dist ICA !134 !50.3!60 !! ! ! + +----+----+-----+ +---- + + !Prox ECA !162 !0 !56 !! ! ! + +----+----+-----+ +---- + + !Vertebral!96.6!25.1!60 !! ! ! + +----+----+-----+ +---- + + !Prox Subclavian!144 !0 !60 !! ! ! + +----+----+-----+ +---- + + - There is antegrade vertebral flow noted on the right side. - Additional Measurements:ICAPSV/CCAPSV 2.03.ICAEDV/CCAEDV 3.78. Carotid Left Measurements + +----+----+-----+ +---- + + !Location !PSV !EDV !Angle!%Stenosis 2D!%Stenosis Doppler!Tortuosity ! + +----+----+-----+ +---- + + !Prox CCA !89.6!18.9!60 !! ! ! + +----+----+-----+ +---- + + !Dist CCA !88!25.1!60 !! ! ! + +----+----+-----+ +---- + + !Prox ICA !165 !38.3!60 !! ! ! + +----+----+-----+ +---- + + !Dist ICA !127 !37.8!56 !! ! ! + +----+----+-----+ +---- + + !Prox ECA !189 !0 !60 !! ! ! + +----+----+-----+ +---- + + !Vertebral!107 !24.6!56 !! ! ! + +----+----+-----+ +---- + + !Prox Subclavian!256 !0 !60 !! ! ! + +----+----+-----+ +---- + + - There is antegrade vertebral flow noted on the left side. - Additional Measurements:ICAPSV/CCAPSV 1.88.ICAEDV/CCAEDV 2.03. Narrative Performed At LAB - Carotid Duplex Study [facility] Demographics Patient Name CHRISTY GREER Date of Study 05/28/2017 BETO [id number] Age 62 Visit Number [id number] GenderFemale Accession Number [id number] Date of 1955 [facility] Room Number 1014 Patricia McgrawographNishi Richard. Jeremy Perez MD, Physician RPVI Procedure Type of Study: Cerebral: Carotid, CAROTID DOPPLER, BILATERAL. Indications for Study:Right Carotid Bruit. Patient Status:Routine. Study Location:Vascular Lab. Technical Quality:Adequate visualization. - Results were reported to:Dr. Lopez @ [id number]. Risk Factors History of Disease + + + + !Diagnosis !Date!Comments ! + + + + !History/Risk!05/13/2017!S/P Heart stent placement 05/12/17, Cardiomegaly,! !Factors:!!CHF, COPD, CAD, DM, HLD, HTN, Smoker, Left great! !! !toe amputation'2016 ! + + + + Procedure Note Interface, External Ris In - 05/28/2017 10:59 AM ASSISTANT SURVEYOR PV LAB - Carotid Duplex Study Demographics Patient Name CHRISTY GREER Date of Study 05/28/2017 BETO Age 62 Visit Number [id number] Gender Female Accession Number [id number] Date of 1955 Referring Jeremy Hemphilln Room Number 1014 Physician John Transplant Rn Macario Zhu Interpreting Gurmeet Perez MD, Physician RPVI Procedure Type of Study: Cerebral: Carotid, CAROTID DOPPLER, BILATERAL. Indications for Study:Right Carotid Bruit. Patient Status:Routine. Study Location:Vascular Lab. Technical Quality:Adequate visualization. - Results were reported to:Dr. Lopez @ 0897. Risk Factors History of Disease + + [...] left side. - Additional Measurements:ICAPSV/CCAPSV 1.88.ICAEDV/CCAEDV 2.03. Performing Organization Address City/State/Zipcode Phone Number [facility] CPA after 05/25/2017 Insurance Payer Benefit Plan / Group Subscriber ID Type Phone Address [employer] MEDICA[employer] MEDICAID [place] xxxxxxxxx Advance Directives For more information, please contact:[address] [phone] Code Status Date Activated Date Inactivated Comments Full Code 09/02/2017 8:59 PM 09/05/2017 8:42 PM This code status was determined by: Patient Full Code 08/05/2017 5:05 PM 08/09/2017 5:42 PM This code status was determined by: Patient Full Code 08/05/2017 6:40 AM 08/05/2017 5:05 PM This code status was determined by: Patient Full Code 05/20/2017 6:18 PM 06/01/2017 8:04 PM This code status was determined by: Patient Full Code 05/19/2017 5:04 PM 05/20/2017 6:18 PM This code status was determined by: Patient
--- OUTSIDE RECORDS SUMMARY | 2018-05-26 15:12 | XMS REPORT ---
:1955 [facility] Address [address] [place] [address] Care Team Providers Name Role Phone CORINA [...] (BEAKER) (test 220 mg/dL 70-110 TESTED AT [facility] [address] [facility] kzlx=[phone]) [facility] [address] BASIC METABOLIC [id number] 15:47:00 Test Item Value Reference Range Comments SODIUM (BEAKER) (test 135 meq/L 136-145 rcsx=868) POTASSIUM (BEAKER) (test 4.8 meq/L 3.5-5.1 cuij=257) CHLORIDE (BEAKER) (test 102 meq/L 98-107 pyoa=836) CO2 (BEAKER) (test 25 meq/L 22-29 ppte=253) BLOOD UREA NITROGEN 51 mg/dL 7-21 (BEAKER) (test tswb=786) CREATININE (BEAKER) (test 1.99 mg/dL 0.57-1.25 uhsv=723) GLUCOSE RANDOM (BEAKER) 201 mg/dL 70-105 (test vjpg=365) CALCIUM (BEAKER) (test 8.8 mg/dL 8.4-10.2 jseh=594) EGFR (BEAKER) (test 25 mL/min/1.73 sq m ESTIMATED GFR IS NOT lavo=6405) ACCURATE CREATININE CLEARANCE IN PREDICTING GLOMERULAR FILTRATION RATE. ESTIMATED GFR IS NOT APPLICABLE FOR DIALYSIS PATIENTS. POCT-GLUCOSE [id number] 11:30:00 Test Item Value Reference Range Comments POC-GLUCOSE METER (BEAKER) 268 mg/dL 70-110 TESTED AT [facility] [address] [facility] (test vfat=9607) [facility] [address] POCT-GLUCOSE [id number] 07:08:00 Test Item Value Reference Range Comments POC-GLUCOSE METER (BEAKER) 208 mg/dL 70-110 TESTED AT [facility] [address] [facility] (test xdbw=9929) [facility] [address] CALCIUM, [id number] 06:47:00 Test Item Value Reference Range Comments CALCIUM IONIZED (BEAKER) (test lpol=500) 1.11 mmol/L 1.12-1.27 PH, BLOOD (BEAKER) (test nlvx=9518) 7.40 BASIC METABOLIC [id number] 06:40:00 Test Item Value Reference Range Comments SODIUM (BEAKER) (test 134 meq/L 136-145 bhvc=571) POTASSIUM (BEAKER) (test 4.9 meq/L 3.5-5.1 eadx=573) CHLORIDE (BEAKER) (test 103 meq/L 98-107 wbtp=001) CO2 (BEAKER) (test 24 meq/L 22-29 ighb=471) BLOOD UREA NITROGEN 53 mg/dL 7-21 (BEAKER) (test besw=927) CREATININE (BEAKER) (test 2.02 mg/dL 0.57-1.25 hxgj=648) GLUCOSE RANDOM (BEAKER) 186 mg/dL 70-105 (test axkj=569) CALCIUM (BEAKER) (test 9.1 mg/dL 8.4-10.2 ciay=469) EGFR (BEAKER) (test 25 mL/min/1.73 sq m ESTIMATED GFR IS NOT iivs=3298) ACCURATE CREATININE CLEARANCE IN PREDICTING GLOMERULAR FILTRATION RATE. ESTIMATED GFR IS NOT APPLICABLE FOR DIALYSIS PATIENTS. [id number] 06:33:00 Test Item Value Reference Range Comments PHOSPHORUS (BEAKER) (test nteu=270) 5.1 mg/dL 2.3-4.7 [id number] 06:33:00 Test Item Value Reference Range Comments MAGNESIUM (BEAKER) (test gwkc=994) 2.0 mg/dL 1.6-2.6 LACTIC ACID, VENOUS, WHOLE [id number] 06:02:00 Test Item Value Reference Range Comments LACTATE BLOOD VENOUS (2) (BEAKER) (test 0.8 mmol/L 0.5-2.2 ebgx=6751) Effective 08/02/2015: Units/Reference Range ChangeNew: 0.5-2.2 mmol/L Previous: 5 -20 mg/dLCBC W/PLT COUNT & AUTO [id number] 05:54:00 Test Item Value Reference Range Comments WHITE BLOOD CELL COUNT (BEAKER) (test intp=576) 7.1 K/ L 3.5-10.5 RED BLOOD CELL COUNT (BEAKER) (test ksxd=451) 3.68 M/ L 3.93-5.22 HEMOGLOBIN (BEAKER) (test rkho=339) 9.0 GM/DL 11.2-15.7 HEMATOCRIT (BEAKER) (test pvgy=587) 29.6 % 34.1-44.9 MEAN CORPUSCULAR VOLUME (BEAKER) (test ofic=969) 80.4 fL 79.4-94.8 MEAN CORPUSCULAR HEMOGLOBIN (BEAKER) (test 24.5 pg 25.6-32.2 rify=741) MEAN CORPUSCULAR HEMOGLOBIN CONC (BEAKER) (test 30.4 GM/DL 32.2-35.5 fysp=286) RED CELL DISTRIBUTION WIDTH (BEAKER) (test 16.5 % 11.7-14.4 ibte=416) PLATELET COUNT (BEAKER) (test fpzd=905) 215 K/CU MM 150-450 MEAN PLATELET VOLUME (BEAKER) (test uygh=974) 9.5 fL 9.4-12.3 NUCLEATED RED BLOOD CELLS (BEAKER) (test 0 /100 WBC 0-0 qjpz=130) NEUTROPHILS RELATIVE PERCENT (BEAKER) (test 42 % yygk=685) LYMPHOCYTES RELATIVE PERCENT (BEAKER) (test 46 % fazl=353) MONOCYTES RELATIVE PERCENT (BEAKER) (test 6 % funz=048) EOSINOPHILS RELATIVE PERCENT (BEAKER) (test 5 % jtve=440) BASOPHILS RELATIVE PERCENT (BEAKER) (test 1 % vdrh=903) NEUTROPHILS ABSOLUTE COUNT (BEAKER) (test 2.96 K/ L 1.56-6.13 hddt=366) LYMPHOCYTES ABSOLUTE COUNT (BEAKER) (test 3.27 K/ L 1.18-3.74 ofmm=539) MONOCYTES ABSOLUTE COUNT (BEAKER) (test 0.41 K/ L 0.24-0.36 bmel=031) EOSINOPHILS ABSOLUTE COUNT (BEAKER) (test 0.34 K/ L 0.04-0.36 wgni=662) BASOPHILS ABSOLUTE COUNT (BEAKER) (test 0.08 K/ L 0.01-0.08 frhj=491) IMMATURE GRANULOCYTES-RELATIVE PERCENT (BEAKER) 0 % 0-1 (test ulio=9115) POCT-GLUCOSE [id number] 21:30:00 Test Item Value Reference Range Comments POC-GLUCOSE METER (BEAKER) 248 mg/dL 70-110 TESTED AT [address] (test wijy=4576) [facility] [address] RAD, [id number] 21:22:00Reason for exam:->fall, tailbone painFINAL REPORT RAD, [...] MDReport Verified Date/Time: 2017 21:22:03 Reading Location: [address] Reading Room POCT- GLUCOSE [id number] 17:37:00 Test Item Value Reference Range Comments POC-GLUCOSE METER (BEAKER) 222 mg/dL 70-110 TESTED AT [address] (test uudz=9641) [facility] [address] POCT-GLUCOSE [id number] 13:55:00 Test Item Value Reference Range Comments POC-GLUCOSE METER (BEAKER) 194 mg/dL 70-110 TESTED AT [facility] [address] [facility] (test xmck=7285) [facility] [address] POCT-GLUCOSE [id number] 12:34:00 Test Item Value Reference Range Comments POC-GLUCOSE METER (BEAKER) 229 mg/dL 70-110 TESTED AT [address] (test ulby=4658) [facility] [address] POCT-GLUCOSE [id number] 08:00:00 Test Item Value Reference Range Comments POC-GLUCOSE METER (BEAKER) 159 mg/dL 70-110 TESTED AT [address] (test gxir=9700) [facility] [address] CALCIUM, [id number] 06:00:00 Test Item Value Reference Range Comments CALCIUM IONIZED (BEAKER) (test xzde=288) 1.05 mmol/L 1.12-1.27 PH, BLOOD (BEAKER) (test xvmw=8234) 7.45 [id number] 05:59:00 Test Item Value Reference Range Comments PHOSPHORUS (BEAKER) (test ppdx=811) 4.8 mg/dL 2.3-4.7 [id number] 05:59:00 Test Item Value Reference Range Comments MAGNESIUM (BEAKER) (test atjg=045) 2.0 mg/dL 1.6-2.6 BASIC METABOLIC [id number] 05:59:00 Test Item Value Reference Range Comments SODIUM (BEAKER) (test 134 meq/L 136-145 pizv=384) POTASSIUM (BEAKER) (test 4.4 meq/L 3.5-5.1 nkot=025) CHLORIDE (BEAKER) (test 103 meq/L 98-107 aaed=743) CO2 (BEAKER) (test 23 meq/L 22-29 vtur=327) BLOOD UREA NITROGEN 49 mg/dL 7-21 (BEAKER) (test sdbt=409) CREATININE (BEAKER) (test 1.69 mg/dL 0.57-1.25 bcmi=625) GLUCOSE RANDOM (BEAKER) 138 mg/dL 70-105 (test mrel=803) CALCIUM (BEAKER) (test 8.7 mg/dL 8.4-10.2 unhb=901) EGFR (BEAKER) (test 31 mL/min/1.73 sq m ESTIMATED GFR IS NOT xsjw=3658) ACCURATE CREATININE CLEARANCE IN PREDICTING GLOMERULAR FILTRATION RATE. ESTIMATED GFR IS NOT APPLICABLE FOR DIALYSIS PATIENTS. CREATINE KINASE (CK)2017-09-04 05:59:00 Test Item Value Reference Range Comments CREATINE KINASE TOTAL (BEAKER) (test lxsj=048) 45 U/L 29-200 CBC W/PLT COUNT & AUTO [id number] 05:32:00 Test Item Value Reference Range Comments WHITE BLOOD CELL COUNT (BEAKER) (test ruup=949) 6.1 K/ L 3.5-10.5 RED BLOOD CELL COUNT (BEAKER) (test wcjr=162) 3.69 M/ L 3.93-5.22 HEMOGLOBIN (BEAKER) (test mxsn=495) 8.8 GM/DL 11.2-15.7 HEMATOCRIT (BEAKER) (test kees=201) 29.3 % 34.1-44.9 MEAN CORPUSCULAR VOLUME (BEAKER) (test sgsm=313) 79.4 fL 79.4-94.8 MEAN CORPUSCULAR HEMOGLOBIN (BEAKER) (test 23.8 pg 25.6-32.2 zqwl=192) MEAN CORPUSCULAR HEMOGLOBIN CONC (BEAKER) (test 30.0 GM/DL 32.2-35.5 wneh=572) RED CELL DISTRIBUTION WIDTH (BEAKER) (test 16.3 % 11.7-14.4 biaw=636) PLATELET COUNT (BEAKER) (test psqr=152) 219 K/CU MM 150-450 MEAN PLATELET VOLUME (BEAKER) (test wiuf=157) 9.4 fL 9.4-12.3 NUCLEATED RED BLOOD CELLS (BEAKER) (test 0 /100 WBC 0-0 vbur=489) NEUTROPHILS RELATIVE PERCENT (BEAKER) (test 44 % piiq=660) LYMPHOCYTES RELATIVE PERCENT (BEAKER) (test 43 % uehx=922) MONOCYTES RELATIVE PERCENT (BEAKER) (test 6 % lqdu=838) EOSINOPHILS RELATIVE PERCENT (BEAKER) (test 6 % avdf=784) BASOPHILS RELATIVE PERCENT (BEAKER) (test 1 % domh=781) NEUTROPHILS ABSOLUTE COUNT (BEAKER) (test 2.67 K/ L 1.56-6.13 pbpv=465) LYMPHOCYTES ABSOLUTE COUNT (BEAKER) (test 2.66 K/ L 1.18-3.74 nlme=782) MONOCYTES ABSOLUTE COUNT (BEAKER) (test 0.38 K/ L 0.24-0.36 ovge=168) EOSINOPHILS ABSOLUTE COUNT (BEAKER) (test 0.37 K/ L 0.04-0.36 tjtw=028) BASOPHILS ABSOLUTE COUNT (BEAKER) (test 0.05 K/ L 0.01-0.08 xtme=924) IMMATURE GRANULOCYTES-RELATIVE PERCENT (BEAKER) 0 % 0-1 (test ybcb=5295) POCT-GLUCOSE [id number] 20:36:00 Test Item Value Reference Range Comments POC-GLUCOSE METER (BEAKER) 211 mg/dL 70-110 TESTED AT [address] (test milb=8552) [place] [id number] CREATININE, RANDOM [id number] 19:55:00 Test Item Value Reference Range Comments CREATININE URINE (BEAKER) (test nqbu=394) 16.1 mg/dL Reference Range: No NormalsPROTEIN, RANDOM [id number] 19:55:00 Test Item Value Reference Range Comments PROTEIN, URINE (BEAKER) (test ycwb=8937) 102 mg/dL 0-14 POCT-GLUCOSE [id number] 18:04:00 Test Item Value Reference Range Comments POC-GLUCOSE METER (BEAKER) 177 mg/dL 70-110 TESTED AT [address] (test evpe=5103) [place] [id number] POCT-GLUCOSE [id number] 11:59:00 Test Item Value Reference Range Comments POC-GLUCOSE METER (BEAKER) 244 mg/dL 70-110 TESTED AT [address] (test pwti=9447) [place] [id number] POCT-GLUCOSE [id number] 07:53:00 Test Item Value Reference Range Comments POC-GLUCOSE METER (BEAKER) 160 mg/dL 70-110 TESTED AT [address] (test ddmi=8239) [place] [id number] BASIC METABOLIC [id number] 05:29:00 Test Item Value Reference Range Comments SODIUM (BEAKER) (test 136 meq/L 136-145 jekf=915) POTASSIUM (BEAKER) (test 4.5 meq/L 3.5-5.1 nsxa=150) CHLORIDE (BEAKER) (test 105 meq/L 98-107 seej=721) CO2 (BEAKER) (test 24 meq/L 22-29 erys=972) BLOOD UREA NITROGEN 51 mg/dL 7-21 (BEAKER) (test jfck=593) CREATININE (BEAKER) (test 1.76 mg/dL 0.57-1.25 xphp=390) GLUCOSE RANDOM (BEAKER) 149 mg/dL 70-105 (test ticm=917) CALCIUM (BEAKER) (test 8.9 mg/dL 8.4-10.2 ysje=325) EGFR (BEAKER) (test 29 mL/min/1.73 sq m ESTIMATED GFR IS NOT tlwg=7227) ACCURATE CREATININE CLEARANCE IN PREDICTING GLOMERULAR FILTRATION RATE. ESTIMATED GFR IS NOT APPLICABLE FOR DIALYSIS PATIENTS. [id number] 05:21:00 Test Item Value Reference Range Comments MAGNESIUM (BEAKER) (test krrx=829) 2.1 mg/dL 1.6-2.6 HEPATIC FUNCTION [id number] 05:21:00 Test Item Value Reference Range Comments TOTAL PROTEIN (BEAKER) (test pfeg=020) 6.8 gm/dL 6.0-8.3 ALBUMIN (BEAKER) (test tnen=6122) 2.9 g/dL 3.5-5.0 BILIRUBIN TOTAL (BEAKER) (test yzmb=846) 0.5 mg/dL 0.2-1.2 BILIRUBIN DIRECT (BEAKER) (test ttez=208) 0.2 mg/dL 0.1-0.5 ALKALINE PHOSPHATASE (BEAKER) (test flcn=912) 173 U/L 40-150 AST (SGOT) (BEAKER) (test wejv=575) 25 U/L 5-34 ALT (SGPT) (BEAKER) (test drrt=914) 23 U/L 6-55 TROPONIN [id number] 05:18:00 Test Item Value Reference Range Comments TROPONIN I (BEAKER) (test qhli=830) 0.05 ng/mL 0.00-0.03 Troponin I (TnI) levels [...] and persistent tachyarrhythmia.CBC W/PLT COUNT & AUTO [id number] 04:59:00 Test Item Value Reference Range Comments WHITE BLOOD CELL COUNT (BEAKER) (test gymt=245) 6.9 K/ L 3.5-10.5 RED BLOOD CELL COUNT (BEAKER) (test sgjj=955) 3.75 M/ L 3.93-5.22 HEMOGLOBIN (BEAKER) (test xnjy=218) 8.9 GM/DL 11.2-15.7 HEMATOCRIT (BEAKER) (test puge=721) 29.7 % 34.1-44.9 MEAN CORPUSCULAR VOLUME (BEAKER) (test bprm=637) 79.2 fL 79.4-94.8 MEAN CORPUSCULAR HEMOGLOBIN (BEAKER) (test 23.7 pg 25.6-32.2 gekf=602) MEAN CORPUSCULAR HEMOGLOBIN CONC (BEAKER) (test 30.0 GM/DL 32.2-35.5 krye=915) RED CELL DISTRIBUTION WIDTH (BEAKER) (test 16.2 % 11.7-14.4 upbs=722) PLATELET COUNT (BEAKER) (test cvyj=021) 240 K/CU MM 150-450 MEAN PLATELET VOLUME (BEAKER) (test ezvb=484) 9.6 fL 9.4-12.3 NUCLEATED RED BLOOD CELLS (BEAKER) (test 0 /100 WBC 0-0 uedw=437) NEUTROPHILS RELATIVE PERCENT (BEAKER) (test 48 % wlkx=875) LYMPHOCYTES RELATIVE PERCENT (BEAKER) (test 40 % wydu=752) MONOCYTES RELATIVE PERCENT (BEAKER) (test 6 % afax=622) EOSINOPHILS RELATIVE PERCENT (BEAKER) (test 5 % hlmy=203) BASOPHILS RELATIVE PERCENT (BEAKER) (test 1 % sbnm=392) NEUTROPHILS ABSOLUTE COUNT (BEAKER) (test 3.32 K/ L 1.56-6.13 gkki=228) LYMPHOCYTES ABSOLUTE COUNT (BEAKER) (test 2.76 K/ L 1.18-3.74 hqth=702) MONOCYTES ABSOLUTE COUNT (BEAKER) (test 0.39 K/ L 0.24-0.36 dgww=500) EOSINOPHILS ABSOLUTE COUNT (BEAKER) (test 0.36 K/ L 0.04-0.36 egms=299) BASOPHILS ABSOLUTE COUNT (BEAKER) (test 0.06 K/ L 0.01-0.08 vyto=461) IMMATURE GRANULOCYTES-RELATIVE PERCENT (BEAKER) 0 % 0-1 (test dklt=8925) TROPONIN [id number] 23:40:00 Test Item Value Reference Range Comments TROPONIN I (BEAKER) (test pplj=676) 0.04 ng/mL 0.00-0.03 Troponin I (TnI) levels [...] acidosis, acute neurological disease, and persistent tachyarrhythmia.POCT-GLUCOSE [id number] 22:51:00 Test Item Value Reference Range Comments POC-GLUCOSE METER (BEAKER) 214 mg/dL 70-110 TESTED AT [address] (test ooxg=1732) [facility] [address] RAD, CHEST, 1 VIEW, NON [id number] 21:42:00Reason for exam:->CHEST PAINShould this be performed at the bedside?->YesFINAL REPORT RAD, CHEST, 1 VIEW, NON DEPT INDICATION: CHEST PAIN COMPARISON: Chest x -ray 4 weeks ago TECHNIQUE: Single frontal view of the chest. IMPRESSION: Cardiomegaly.Mild pulmonary interstitial edema with a small right-sided effusion.No acute osseous abnormality. Signed: Dario Abraham MDReport Verified Date/Time: 09/02/2017 21:42:11 Reading Location: [address] Transitional Reading Room CREATININE, RANDOM [id number] 21:10:00 Test Item Value Reference Range Comments CREATININE URINE (BEAKER) (test vwnn=807) 35.5 mg/dL Reference Range: No NormalsSODIUM, RANDOM [id number] 21:10:00 Test Item Value Reference Range Comments SODIUM URINE (BEAKER) (test ddja=088) 80 meq/L Reference Range: No NormalsURINALYSIS W/ [id number] 20:59:00 Test Item Value Reference Range Comments COLOR (BEAKER) (test fuyn=862) Light Yellow CLARITY (BEAKER) (test fycr=658) Clear SPECIFIC GRAVITY UA (BEAKER) (test nnud=190) 1.008 1.001-1.035 PH UA (BEAKER) (test suyi=615) 6.5 5.0-8.0 PROTEIN UA (BEAKER) (test gkot=087) 200 mg/dL Negative GLUCOSE UA (BEAKER) (test mffm=775) 70 mg/dL Negative KETONES UA (BEAKER) (test puuo=484) Negative Negative BILIRUBIN UA (BEAKER) (test mwcd=673) Negative Negative BLOOD UA (BEAKER) (test zpde=342) Negative Negative NITRITE UA (BEAKER) (test bhmf=550) Negative Negative LEUKOCYTE ESTERASE UA (BEAKER) (test kqvv=600) Negative Negative UROBILINOGEN UA (BEAKER) (test smgb=840) 0.2 mg/dL 0.2-1.0 RBC UA (BEAKER) (test qgkt=684) < /HPF WBC UA (BEAKER) (test rqaq=090) 2 /HPF BACTERIA (BEAKER) (test lhmw=671) Occasional MUCUS (BEAKER) (test wnkx=9331) Rare SQUAMOUS EPITHELIAL (BEAKER) (test vpqp=943) 2 /HPF HYALINE CASTS (BEAKER) (test lygx=294) 7 /LPF SOURCE(BEAKER) (test qcrw=7671) BASIC METABOLIC [id number] 16:49:00 Test Item Value Reference Range Comments SODIUM (BEAKER) (test 134 meq/L 136-145 qfcy=389) POTASSIUM (BEAKER) (test 4.8 meq/L 3.5-5.1 fxhs=455) CHLORIDE (BEAKER) (test 101 meq/L 98-107 fcan=570) CO2 (BEAKER) (test 26 meq/L 22-29 zwbp=223) BLOOD UREA NITROGEN 53 mg/dL 7-21 (BEAKER) (test ldjv=823) CREATININE (BEAKER) (test 2.04 mg/dL 0.57-1.25 yvvv=038) GLUCOSE RANDOM (BEAKER) 267 mg/dL 70-105 (test azyz=856) CALCIUM (BEAKER) (test 9.1 mg/dL 8.4-10.2 ojfp=653) EGFR (BEAKER) (test 25 mL/min/1.73 sq m ESTIMATED GFR IS NOT xria=4321) ACCURATE CREATININE CLEARANCE IN PREDICTING GLOMERULAR FILTRATION RATE. ESTIMATED GFR IS NOT APPLICABLE FOR DIALYSIS PATIENTS. [id number] 16:38:00 Test Item Value Reference Range Comments PROTIME (BEAKER) (test ukgz=466) 14.4 seconds 11.7-14.7 INR (BEAKER) (test tqkq=085) 1.1 <=5.9 PARTIAL THROMBOPLASTIN TIME (BEAKER) (test 31.0 seconds 22.5-36.0 ryfx=496) RECOMMENDED COUMADIN/WARFARIN INR THERAPY RANGESSTANDARD DOSE: 2.0 - 3.0 Includes: PROPHYLAXIS forvenous thrombosis, systemic embolization; TREATMENT for venous thrombosis and/or pulmonary embolus.HIGH RISK: Target INR is 2.5-3.5 for patients with mechanical heart valves.CBC W/PLT COUNT & AUTO [id number] 16:26:00 Test Item Value Reference Range Comments WHITE BLOOD CELL COUNT (BEAKER) (test tadi=189) 6.3 K/ L 3.5-10.5 RED BLOOD CELL COUNT (BEAKER) (test sjlv=037) 4.22 M/ L 3.93-5.22 HEMOGLOBIN (BEAKER) (test aguf=349) 10.1 GM/DL 11.2-15.7 HEMATOCRIT (BEAKER) (test iqgd=958) 33.4 % 34.1-44.9 MEAN CORPUSCULAR VOLUME (BEAKER) (test oaja=621) 79.1 fL 79.4-94.8 MEAN CORPUSCULAR HEMOGLOBIN (BEAKER) (test 23.9 pg 25.6-32.2 yfgd=057) MEAN CORPUSCULAR HEMOGLOBIN CONC (BEAKER) (test 30.2 GM/DL 32.2-35.5 ftqy=570) RED CELL DISTRIBUTION WIDTH (BEAKER) (test 16.1 % 11.7-14.4 fjyh=459) PLATELET COUNT (BEAKER) (test dmuu=932) 252 K/CU MM 150-450 MEAN PLATELET VOLUME (BEAKER) (test qtpi=638) 9.5 fL 9.4-12.3 NUCLEATED RED BLOOD CELLS (BEAKER) (test 0 /100 WBC 0-0 ybpg=241) NEUTROPHILS RELATIVE PERCENT (BEAKER) (test 49 % pdhu=709) LYMPHOCYTES RELATIVE PERCENT (BEAKER) (test 38 % clgi=328) MONOCYTES RELATIVE PERCENT (BEAKER) (test 6 % vtaf=507) EOSINOPHILS RELATIVE PERCENT (BEAKER) (test 5 % fiop=528) BASOPHILS RELATIVE PERCENT (BEAKER) (test 1 % stky=231) NEUTROPHILS ABSOLUTE COUNT (BEAKER) (test 3.08 K/ L 1.56-6.13 pdfi=246) LYMPHOCYTES ABSOLUTE COUNT (BEAKER) (test 2.42 K/ L 1.18-3.74 vgpz=852) MONOCYTES ABSOLUTE COUNT (BEAKER) (test 0.40 K/ L 0.24-0.36 sxdi=655) EOSINOPHILS ABSOLUTE COUNT (BEAKER) (test 0.33 K/ L 0.04-0.36 tsuu=163) BASOPHILS ABSOLUTE COUNT (BEAKER) (test 0.07 K/ L 0.01-0.08 ajmd=407) IMMATURE GRANULOCYTES-RELATIVE PERCENT (BEAKER) 0 % 0-1 (test pqll=0923) B-TYPE NATRIURETIC FACTOR (BNP)2017-09-02 13:47:00 Test Item Value Reference Range Comments B-TYPE NATRIURETIC PEPTIDE (BEAKER) (test 1942 pg/mL 0-100 hdex=924) BASIC METABOLIC [id number] 13:43:00 Test Item Value Reference Range Comments SODIUM (BEAKER) (test 134 meq/L 136-145 jmxu=592) POTASSIUM (BEAKER) (test 5.2 meq/L 3.5-5.1 nbap=351) CHLORIDE (BEAKER) (test 101 meq/L 98-107 ynbg=485) CO2 (BEAKER) (test 25 meq/L 22-29 jbbm=540) BLOOD UREA NITROGEN 55 mg/dL 7-21 (BEAKER) (test cibk=793) CREATININE (BEAKER) (test 2.09 mg/dL 0.57-1.25 ajwk=913) GLUCOSE RANDOM (BEAKER) 317 mg/dL 70-105 (test tyrk=460) CALCIUM (BEAKER) (test 9.2 mg/dL 8.4-10.2 rhau=896) EGFR (BEAKER) (test 24 mL/min/1.73 sq m ESTIMATED GFR IS NOT nmxd=5079) ACCURATE CREATININE CLEARANCE IN PREDICTING GLOMERULAR FILTRATION RATE. ESTIMATED GFR IS NOT APPLICABLE FOR DIALYSIS PATIENTS. POCT-GLUCOSE [id number] 12:44:00 Test Item Value Reference Range Comments POC-GLUCOSE METER (BEAKER) 283 mg/dL 70-110 TESTED AT [facility] [address] (test rorv=4757) [facility] [address] CALCIUM, [id number] 07:03:00 Test Item Value Reference Range Comments CALCIUM IONIZED (BEAKER) (test cmjg=791) 1.02 mmol/L 1.12-1.27 PH, BLOOD (BEAKER) (test enqe=9665) 7.43 [id number] 05:28:00 Test Item Value Reference Range Comments PHOSPHORUS (BEAKER) (test gxqu=322) 3.3 mg/dL 2.3-4.7 [id number] 05:28:00 Test Item Value Reference Range Comments MAGNESIUM (BEAKER) (test hpbw=033) 1.5 mg/dL 1.6-2.6 BASIC METABOLIC [id number] 05:28:00 Test Item Value Reference Range Comments SODIUM (BEAKER) (test 135 meq/L 136-145 pbux=040) POTASSIUM (BEAKER) (test 3.9 meq/L 3.5-5.1 ydwg=326) CHLORIDE (BEAKER) (test 101 meq/L 98-107 kxgd=460) CO2 (BEAKER) (test 27 meq/L 22-29 lxad=088) BLOOD UREA NITROGEN 35 mg/dL 7-21 (BEAKER) (test lhge=093) CREATININE (BEAKER) (test 1.37 mg/dL 0.57-1.25 mzme=178) GLUCOSE RANDOM (BEAKER) 145 mg/dL 70-105 (test yjlm=163) CALCIUM (BEAKER) (test 8.3 mg/dL 8.4-10.2 uoht=035) EGFR (BEAKER) (test 39 mL/min/1.73 sq m ESTIMATED GFR IS NOT omez=0497) ACCURATE CREATININE CLEARANCE IN PREDICTING GLOMERULAR FILTRATION RATE. ESTIMATED GFR IS NOT APPLICABLE FOR DIALYSIS PATIENTS. CBC W/PLT COUNT & AUTO [id number] 05:06:00 Test Item Value Reference Range Comments WHITE BLOOD CELL COUNT (BEAKER) (test qqqh=014) 9.3 K/ L 3.5-10.5 RED BLOOD CELL COUNT (BEAKER) (test oamt=441) 3.64 M/ L 3.93-5.22 HEMOGLOBIN (BEAKER) (test siya=862) 8.7 GM/DL 11.2-15.7 HEMATOCRIT (BEAKER) (test njvg=332) 28.5 % 34.1-44.9 MEAN CORPUSCULAR VOLUME (BEAKER) (test mtxw=343) 78.3 fL 79.4-94.8 MEAN CORPUSCULAR HEMOGLOBIN (BEAKER) (test 23.9 pg 25.6-32.2 zjsw=992) MEAN CORPUSCULAR HEMOGLOBIN CONC (BEAKER) (test 30.5 GM/DL 32.2-35.5 wvdq=513) RED CELL DISTRIBUTION WIDTH (BEAKER) (test 14.6 % 11.7-14.4 hbjd=383) PLATELET COUNT (BEAKER) (test owqf=498) 336 K/CU MM 150-450 MEAN PLATELET VOLUME (BEAKER) (test emhf=412) 9.3 fL 9.4-12.3 NUCLEATED RED BLOOD CELLS (BEAKER) (test 0 /100 WBC 0-0 unmk=512) NEUTROPHILS RELATIVE PERCENT (BEAKER) (test 50 % jbgx=501) LYMPHOCYTES RELATIVE PERCENT (BEAKER) (test 40 % jvdo=484) MONOCYTES RELATIVE PERCENT (BEAKER) (test 6 % xdtv=721) EOSINOPHILS RELATIVE PERCENT (BEAKER) (test 3 % qjik=563) BASOPHILS RELATIVE PERCENT (BEAKER) (test 1 % iwks=086) NEUTROPHILS ABSOLUTE COUNT (BEAKER) (test 4.66 K/ L 1.56-6.13 qrri=130) LYMPHOCYTES ABSOLUTE COUNT (BEAKER) (test 3.71 K/ L 1.18-3.74 szpi=612) MONOCYTES ABSOLUTE COUNT (BEAKER) (test 0.53 K/ L 0.24-0.36 rrqe=261) EOSINOPHILS ABSOLUTE COUNT (BEAKER) (test 0.31 K/ L 0.04-0.36 cisp=824) BASOPHILS ABSOLUTE COUNT (BEAKER) (test 0.07 K/ L 0.01-0.08 elsf=494) IMMATURE GRANULOCYTES-RELATIVE PERCENT (BEAKER) 1 % 0-1 (test sfsm=1530) POCT-GLUCOSE [id number] 21:08:00 Test Item Value Reference Range Comments POC-GLUCOSE METER (BEAKER) 202 mg/dL 70-110 TESTED AT [address] (test djaj=4345) [facility] [address] POCT-GLUCOSE [id number] 16:50:00 Test Item Value Reference Range Comments POC-GLUCOSE METER (BEAKER) 287 mg/dL 70-110 TESTED AT [address] (test xdup=4933) [facility] [address] POCT-GLUCOSE [id number] 12:21:00 Test Item Value Reference Range Comments POC-GLUCOSE METER (BEAKER) 213 mg/dL 70-110 TESTED AT [address] (test rijz=0674) [facility] [address] POCT-GLUCOSE [id number] 08:28:00 Test Item Value Reference Range Comments POC-GLUCOSE METER (BEAKER) 178 mg/dL 70-110 TESTED AT [address] (test lsfx=2688) [facility] [id number] CALCIUM, [id number] 07:06:00 Test Item Value Reference Range Comments CALCIUM IONIZED (BEAKER) (test otwa=780) 0.99 mmol/L 1.12-1.27 PH, BLOOD (BEAKER) (test fwbn=3676) 7.42 [id number] 05:37:00 Test Item Value Reference Range Comments PHOSPHORUS (BEAKER) (test nbrg=043) 3.5 mg/dL 2.3-4.7 [id number] 05:37:00 Test Item Value Reference Range Comments MAGNESIUM (BEAKER) (test gkil=534) 1.6 mg/dL 1.6-2.6 BASIC METABOLIC [id number] 05:37:00 Test Item Value Reference Range Comments SODIUM (BEAKER) (test 133 meq/L 136-145 aswu=774) POTASSIUM (BEAKER) (test 3.8 meq/L 3.5-5.1 vcko=153) CHLORIDE (BEAKER) (test 101 meq/L 98-107 clkn=005) CO2 (BEAKER) (test 25 meq/L 22-29 echu=952) BLOOD UREA NITROGEN 39 mg/dL 7-21 (BEAKER) (test cibk=326) CREATININE (BEAKER) (test 1.42 mg/dL 0.57-1.25 ecrk=792) GLUCOSE RANDOM (BEAKER) 200 mg/dL 70-105 (test tmza=547) CALCIUM (BEAKER) (test 8.0 mg/dL 8.4-10.2 uxcc=572) EGFR (BEAKER) (test 37 mL/min/1.73 sq m ESTIMATED GFR IS NOT zzim=8056) ACCURATE CREATININE CLEARANCE IN PREDICTING GLOMERULAR FILTRATION RATE. ESTIMATED GFR IS NOT APPLICABLE FOR DIALYSIS PATIENTS. CBC W/PLT COUNT & AUTO [id number] 05:07:00 Test Item Value Reference Range Comments WHITE BLOOD CELL COUNT (BEAKER) (test qbzr=255) 9.2 K/ L 3.5-10.5 RED BLOOD CELL COUNT (BEAKER) (test izwo=339) 3.69 M/ L 3.93-5.22 HEMOGLOBIN (BEAKER) (test spcu=865) 8.8 GM/DL 11.2-15.7 HEMATOCRIT (BEAKER) (test zpwi=799) 28.8 % 34.1-44.9 MEAN CORPUSCULAR VOLUME (BEAKER) (test huqz=649) 78.0 fL 79.4-94.8 MEAN CORPUSCULAR HEMOGLOBIN (BEAKER) (test 23.8 pg 25.6-32.2 jfsl=567) MEAN CORPUSCULAR HEMOGLOBIN CONC (BEAKER) (test 30.6 GM/DL 32.2-35.5 dvqn=610) RED CELL DISTRIBUTION WIDTH (BEAKER) (test 14.6 % 11.7-14.4 bgyp=263) PLATELET COUNT (BEAKER) (test xdvb=798) 308 K/CU MM 150-450 MEAN PLATELET VOLUME (BEAKER) (test hxov=115) 9.3 fL 9.4-12.3 NUCLEATED RED BLOOD CELLS (BEAKER) (test 0 /100 WBC 0-0 jxzr=588) NEUTROPHILS RELATIVE PERCENT (BEAKER) (test 61 % mijl=257) LYMPHOCYTES RELATIVE PERCENT (BEAKER) (test 30 % jbou=858) MONOCYTES RELATIVE PERCENT (BEAKER) (test 5 % bbws=127) EOSINOPHILS RELATIVE PERCENT (BEAKER) (test 3 % uodh=837) BASOPHILS RELATIVE PERCENT (BEAKER) (test 0 % wabg=688) NEUTROPHILS ABSOLUTE COUNT (BEAKER) (test 5.67 K/ L 1.56-6.13 lisa=276) LYMPHOCYTES ABSOLUTE COUNT (BEAKER) (test 2.72 K/ L 1.18-3.74 teqd=970) MONOCYTES ABSOLUTE COUNT (BEAKER) (test 0.48 K/ L 0.24-0.36 eafm=006) EOSINOPHILS ABSOLUTE COUNT (BEAKER) (test 0.26 K/ L 0.04-0.36 cxwz=431) BASOPHILS ABSOLUTE COUNT (BEAKER) (test 0.04 K/ L 0.01-0.08 gbcd=203) IMMATURE GRANULOCYTES-RELATIVE PERCENT (BEAKER) 1 % 0-1 (test folv=5043) POCT-GLUCOSE [id number] 21:24:00 Test Item Value Reference Range Comments POC-GLUCOSE METER (BEAKER) 255 mg/dL 70-110 TESTED AT [address] (test nccc=2457) [place] [id number] POCT-GLUCOSE [id number] 17:11:00 Test Item Value Reference Range Comments POC-GLUCOSE METER (BEAKER) 244 mg/dL 70-110 TESTED AT [address] (test eojv=3808) [facility] [address] POCT-GLUCOSE [id number] 11:54:00 Test Item Value Reference Range Comments POC-GLUCOSE METER (BEAKER) 209 mg/dL 70-110 TESTED AT [address] (test khys=0145) [place] [id number] POCT-GLUCOSE [id number] 08:15:00 Test Item Value Reference Range Comments POC-GLUCOSE METER (BEAKER) 132 mg/dL 70-110 TESTED AT [address] (test maaf=3364) [facility] [address] RAD, CHEST, 1 VIEW, NON [id number] 07:44:00Reason for exam:->edemaShould this be performed at the bedside?->YesFINAL REPORT Chest one view AP 08/07/2017 7:44 AM CLINICAL INDICATION: edema COMPARISON: 2017 IMPRESSION: Cardiomediastinal contours are stable. There is mild pulmonary edema,asymmetric to the right. There are trace bilateral pleural effusions, with bibasilar linear atelectasis. Sternotomy wires remain midline. Signed: Eder Cespedesort Verified Date/Time: 08/07/2017 07:44:22 Reading Location: [facility] Radiology Reading Room [id number] 05:30:00 Test Item Value Reference Range Comments FERRITIN (BEAKER) (test udpn=293) 87 ng/mL 5-275 CBC W/PLT COUNT & AUTO [id number] 05:21:00 Test Item Value Reference Range Comments WHITE BLOOD CELL COUNT (BEAKER) (test hojv=397) 12.4 K/ L 3.5-10.5 RED BLOOD CELL COUNT (BEAKER) (test jkkb=845) 3.78 M/ L 3.93-5.22 HEMOGLOBIN (BEAKER) (test dzkh=791) 9.0 GM/DL 11.2-15.7 HEMATOCRIT (BEAKER) (test isim=032) 29.3 % 34.1-44.9 MEAN CORPUSCULAR VOLUME (BEAKER) (test kbxe=163) 77.5 fL 79.4-94.8 MEAN CORPUSCULAR HEMOGLOBIN (BEAKER) (test 23.8 pg 25.6-32.2 daht=056) MEAN CORPUSCULAR HEMOGLOBIN CONC (BEAKER) (test 30.7 GM/DL 32.2-35.5 yafl=519) RED CELL DISTRIBUTION WIDTH (BEAKER) (test 14.7 % 11.7-14.4 tfcp=808) PLATELET COUNT (BEAKER) (test jaem=853) 316 K/CU MM 150-450 MEAN PLATELET VOLUME (BEAKER) (test pshh=745) 9.6 fL 9.4-12.3 NUCLEATED RED BLOOD CELLS (BEAKER) (test 0 /100 WBC 0-0 kyht=724) NEUTROPHILS RELATIVE PERCENT (BEAKER) (test 72 % nhrp=083) LYMPHOCYTES RELATIVE PERCENT (BEAKER) (test 20 % jsiz=129) MONOCYTES RELATIVE PERCENT (BEAKER) (test 5 % prfo=883) EOSINOPHILS RELATIVE PERCENT (BEAKER) (test 2 % apsc=998) BASOPHILS RELATIVE PERCENT (BEAKER) (test 1 % nvie=910) NEUTROPHILS ABSOLUTE COUNT (BEAKER) (test 8.93 K/ L 1.56-6.13 fxrx=604) LYMPHOCYTES ABSOLUTE COUNT (BEAKER) (test 2.51 K/ L 1.18-3.74 rbtk=073) MONOCYTES ABSOLUTE COUNT (BEAKER) (test 0.58 K/ L 0.24-0.36 rozk=216) EOSINOPHILS ABSOLUTE COUNT (BEAKER) (test 0.23 K/ L 0.04-0.36 diwv=401) BASOPHILS ABSOLUTE COUNT (BEAKER) (test 0.07 K/ L 0.01-0.08 updo=334) IMMATURE GRANULOCYTES-RELATIVE PERCENT (BEAKER) 1 % 0-1 (test wjkt=6672) IRON, TIBC, % SAT. (WITHOUT FERRITIN)2017-08-07 05:16:00 Test Item Value Reference Range Comments IRON (BEAKER) (test ugzy=539) 21 ug/dL 40-160 TOTAL IRON BINDING CAPACITY (BEAKER) (test 184 ug/dL 250-450 ccho=600) IRON % SATURATION (2) (BEAKER) (test bphu=1260) 11 % 20-55 [id number] 05:11:00 Test Item Value Reference Range Comments PHOSPHORUS (BEAKER) (test ylgk=640) 3.6 mg/dL 2.3-4.7 [id number] 05:11:00 Test Item Value Reference Range Comments MAGNESIUM (BEAKER) (test pfrp=015) 2.0 mg/dL 1.6-2.6 BASIC METABOLIC [id number] 05:11:00 Test Item Value Reference Range Comments SODIUM (BEAKER) (test 134 meq/L 136-145 fmrn=908) POTASSIUM (BEAKER) (test 3.9 meq/L 3.5-5.1 kitx=608) CHLORIDE (BEAKER) (test 102 meq/L 98-107 eilm=719) CO2 (BEAKER) (test 23 meq/L 22-29 gxkf=077) BLOOD UREA NITROGEN 41 mg/dL 7-21 (BEAKER) (test njkg=590) CREATININE (BEAKER) (test 1.63 mg/dL 0.57-1.25 dmrt=845) GLUCOSE RANDOM (BEAKER) 124 mg/dL 70-105 (test osdj=014) CALCIUM (BEAKER) (test 8.3 mg/dL 8.4-10.2 rhtm=204) EGFR (BEAKER) (test 32 mL/min/1.73 sq m ESTIMATED GFR IS NOT mtgm=3175) ACCURATE CREATININE CLEARANCE IN PREDICTING GLOMERULAR FILTRATION RATE. ESTIMATED GFR IS NOT APPLICABLE FOR DIALYSIS PATIENTS. B-TYPE NATRIURETIC FACTOR (BNP)2017-08-07 05:05:00 Test Item Value Reference Range Comments B-TYPE NATRIURETIC PEPTIDE (BEAKER) (test 1561 pg/mL 0-100 tohl=846) CALCIUM, [id number] 04:58:00 Test Item Value Reference Range Comments CALCIUM IONIZED (BEAKER) (test bqgq=897) 1.04 mmol/L 1.12-1.27 PH, BLOOD (BEAKER) (test gcis=2400) 7.41 RETICULOCYTE [id number] 04:51:00 Test Item Value Reference Range Comments RETICULOCYTE COUNT PCT (BEAKER) (test ywap=814) 1.2 % 0.5-1.7 POCT-GLUCOSE [id number] 20:49:00 Test Item Value Reference Range Comments POC-GLUCOSE METER (BEAKER) 202 mg/dL 70-110 TESTED AT [facility] [address] [facility] (test zcup=5542) [facility] [address] CREATININE, RANDOM [id number] 18:38:00 Test Item Value Reference Range Comments CREATININE URINE (BEAKER) (test dnwh=913) 56.3 mg/dL Reference Range: No NormalsPROTEIN, RANDOM [id number] 18:38:00 Test Item Value Reference Range Comments PROTEIN, URINE (BEAKER) (test dtay=2189) 189 mg/dL 0-14 URINALYSIS W/ [id number] 18:34:00 Test Item Value Reference Range Comments COLOR (BEAKER) (test hhjk=345) Light Yellow CLARITY (BEAKER) (test pwab=546) Hazy SPECIFIC GRAVITY UA (BEAKER) (test rdlf=638) 1.008 1.001-1.035 PH UA (BEAKER) (test crlt=336) 5.5 5.0-8.0 PROTEIN UA (BEAKER) (test qasu=639) 100 mg/dL Negative GLUCOSE UA (BEAKER) (test pivo=684) 30 mg/dL Negative KETONES UA (BEAKER) (test oihr=551) Negative Negative BILIRUBIN UA (BEAKER) (test nyos=606) Negative Negative BLOOD UA (BEAKER) (test yswr=006) Negative Negative NITRITE UA (BEAKER) (test jdfd=496) Negative Negative LEUKOCYTE ESTERASE UA (BEAKER) (test fivb=363) Negative Negative UROBILINOGEN UA (BEAKER) (test jjez=331) 0.2 mg/dL 0.2-1.0 RBC UA (BEAKER) (test oysq=363) < /HPF WBC UA (BEAKER) (test lfqs=242) 2 /HPF BACTERIA (BEAKER) (test ahrz=146) Rare MUCUS (BEAKER) (test digt=3943) Rare SQUAMOUS EPITHELIAL (BEAKER) (test uabe=165) 8 /HPF SOURCE(BEAKER) (test iqia=2251) Urine, Voided POCT-GLUCOSE [id number] 17:38:00 Test Item Value Reference Range Comments POC-GLUCOSE METER (BEAKER) 143 mg/dL 70-110 TESTED AT [address] (test cyyg=7859) [place] [address] POCT-GLUCOSE [id number] 12:30:00 Test Item Value Reference Range Comments POC-GLUCOSE METER (BEAKER) 218 mg/dL 70-110 TESTED AT [address] (test xdwf=7407) [place] [address] POCT-GLUCOSE [id number] 08:00:00 Test Item Value Reference Range Comments POC-GLUCOSE METER (BEAKER) 134 mg/dL 70-110 TESTED AT [address] (test bmhp=4870) [place] [address] CBC W/PLT COUNT & AUTO [id number] 04:23:00 Test Item Value Reference Range Comments WHITE BLOOD CELL COUNT (BEAKER) (test wkbe=061) 13.9 K/ L 3.5-10.5 RED BLOOD CELL COUNT (BEAKER) (test amkf=689) 3.23 M/ L 3.93-5.22 HEMOGLOBIN (BEAKER) (test vysn=836) 7.6 GM/DL 11.2-15.7 HEMATOCRIT (BEAKER) (test gziu=680) 25.3 % 34.1-44.9 MEAN CORPUSCULAR VOLUME (BEAKER) (test cqfi=356) 78.3 fL 79.4-94.8 MEAN CORPUSCULAR HEMOGLOBIN (BEAKER) (test 23.5 pg 25.6-32.2 sggh=638) MEAN CORPUSCULAR HEMOGLOBIN CONC (BEAKER) (test 30.0 GM/DL 32.2-35.5 mhxd=137) RED CELL DISTRIBUTION WIDTH (BEAKER) (test 14.8 % 11.7-14.4 zqfv=053) PLATELET COUNT (BEAKER) (test rwxk=130) 284 K/CU MM 150-450 MEAN PLATELET VOLUME (BEAKER) (test wkmn=822) 9.8 fL 9.4-12.3 NUCLEATED RED BLOOD CELLS (BEAKER) (test 0 /100 WBC 0-0 krjw=568) NEUTROPHILS RELATIVE PERCENT (BEAKER) (test 77 % ornv=404) LYMPHOCYTES RELATIVE PERCENT (BEAKER) (test 16 % jgfv=463) MONOCYTES RELATIVE PERCENT (BEAKER) (test 4 % xonz=194) EOSINOPHILS RELATIVE PERCENT (BEAKER) (test 2 % iioz=070) BASOPHILS RELATIVE PERCENT (BEAKER) (test 1 % lgmd=653) NEUTROPHILS ABSOLUTE COUNT (BEAKER) (test 10.70 K/ L 1.56-6.13 sztl=742) LYMPHOCYTES ABSOLUTE COUNT (BEAKER) (test 2.17 K/ L 1.18-3.74 gfve=137) MONOCYTES ABSOLUTE COUNT (BEAKER) (test 0.57 K/ L 0.24-0.36 hqco=786) EOSINOPHILS ABSOLUTE COUNT (BEAKER) (test 0.30 K/ L 0.04-0.36 fxup=188) BASOPHILS ABSOLUTE COUNT (BEAKER) (test 0.08 K/ L 0.01-0.08 otvl=488) IMMATURE GRANULOCYTES-RELATIVE PERCENT (BEAKER) 1 % 0-1 (test cboe=8316) BASIC METABOLIC [id number] 04:13:00 Test Item Value Reference Range Comments SODIUM (BEAKER) (test 134 meq/L 136-145 pvvq=608) POTASSIUM (BEAKER) (test 4.6 meq/L 3.5-5.1 wycb=872) CHLORIDE (BEAKER) (test 103 meq/L 98-107 nplu=343) CO2 (BEAKER) (test 23 meq/L 22-29 anot=956) BLOOD UREA NITROGEN 43 mg/dL 7-21 (BEAKER) (test fctz=204) CREATININE (BEAKER) (test 1.79 mg/dL 0.57-1.25 avvl=446) GLUCOSE RANDOM (BEAKER) 123 mg/dL 70-105 (test gzou=243) CALCIUM (BEAKER) (test 8.1 mg/dL 8.4-10.2 lyfd=580) EGFR (BEAKER) (test 29 mL/min/1.73 sq m ESTIMATED GFR IS NOT afhe=3962) ACCURATE CREATININE CLEARANCE IN PREDICTING GLOMERULAR FILTRATION RATE. ESTIMATED GFR IS NOT APPLICABLE FOR DIALYSIS PATIENTS. [id number] 04:10:00 Test Item Value Reference Range Comments PHOSPHORUS (BEAKER) (test gngc=799) 4.9 mg/dL 2.3-4.7 [id number] 04:10:00 Test Item Value Reference Range Comments MAGNESIUM (BEAKER) (test gcxw=126) 1.4 mg/dL 1.6-2.6 [id number] 04:08:00 Test Item Value Reference Range Comments FIBRINOGEN LEVEL (BEAKER) (test azkz=431) 548 mg/dl 225-434 [id number] 04:08:00 Test Item Value Reference Range Comments PARTIAL THROMBOPLASTIN TIME (BEAKER) (test 37.7 seconds 22.5-36.0 cati=950) PROTHROMBIN [id number] 04:07:00 Test Item Value Reference Range Comments PROTIME (BEAKER) (test pead=464) 16.2 seconds 11.7-14.7 INR (BEAKER) (test ezfb=964) 1.3 <=5.9 RECOMMENDED COUMADIN/WARFARIN INR THERAPY RANGESSTANDARD DOSE: 2.0 - 3.0 Includes: PROPHYLAXIS forvenous thrombosis, systemic embolization; TREATMENT for venous thrombosis and/or pulmonary embolus.HIGH RISK: Target INR is 2.5-3.5 for patients with mechanical heart valves.[id number] 16:59:00 Test Item Value Reference Range Comments ACTIVATED CLOTTING TIME 219 sec TESTED AT [facility] [address] (BEAKER) (test ygbb=683) [facility] [address] BASIC METABOLIC [id number] 14:25:00 Test Item Value Reference Range Comments SODIUM (BEAKER) (test 134 meq/L 136-145 bfnd=553) POTASSIUM (BEAKER) (test 4.4 meq/L 3.5-5.1 zkla=157) CHLORIDE (BEAKER) (test 103 meq/L 98-107 jhlx=734) CO2 (BEAKER) (test 22 meq/L 22-29 jrbc=687) BLOOD UREA NITROGEN 46 mg/dL 7-21 (BEAKER) (test rotl=185) CREATININE (BEAKER) (test 2.16 mg/dL 0.57-1.25 wkky=838) GLUCOSE RANDOM (BEAKER) 160 mg/dL 70-105 (test bdij=051) CALCIUM (BEAKER) (test 7.8 mg/dL 8.4-10.2 zndm=554) EGFR (BEAKER) (test 23 mL/min/1.73 sq m ESTIMATED GFR IS NOT pyyu=1040) ACCURATE CREATININE CLEARANCE IN PREDICTING GLOMERULAR FILTRATION RATE. ESTIMATED GFR IS NOT APPLICABLE FOR DIALYSIS PATIENTS. POCT-GLUCOSE [id number] 13:21:00 Test Item Value Reference Range Comments POC-GLUCOSE METER (BEAKER) 170 mg/dL 70-110 TESTED AT [facility] [address] [place] [address] (test ogws=5753) [facility] [address] POTASSIUM-STAT [id number] 13:20:00 Test Item Value Reference Range Comments POTASSIUM (BEAKER) (test xzgw=266) 4.2 meq/L 3.6-5.5 SODIUM NA-STAT [id number] 13:20:00 Test Item Value Reference Range Comments SODIUM (BEAKER) (test obzz=440) 133 meq/L 135-148 HGB/HCT (H&H) - STAT [id number] 12:34:00 Test Item Value Reference Range Comments HEMOGLOBIN (BEAKER) (test cjlb=290) 10.8 g/dL 12.0-15.0 HEMATOCRIT (BEAKER) (test mfnb=269) 32.0 % 36.0-45.0 POTASSIUM-STAT [id number] 08:15:00 Test Item Value Reference Range Comments POTASSIUM (BEAKER) (test mjtn=752) 4.1 meq/L 3.6-5.5 BLOOD GAS, [id number] 08:15:00 Test Item Value Reference Range Comments PH ARTERIAL (BEAKER) (test wkze=279) 7.36 7.35-7.45 PCO2 ARTERIAL (BEAKER) (test kklf=747) 47 mmHg 35-45 PO2 ARTERIAL (BEAKER) (test lerp=379) 213 mmHg 80-90 O2 SATURATION ARTERIAL (BEAKER) (test sjyd=026) 99.4 % 96.0-97.0 HCO3 ARTERIAL (BEAKER) (test iuwr=677) 26 mmol/L 21-29 BASE EXCESS ARTERIAL (BEAKER) (test urhd=844) 0.3 mmol/L -2.0-3.0 PATIENT TEMPERATURE (BEAKER) (test pfej=9429) 37.2 C FIO2 (BEAKER) (test przl=7815) 70.0 % SODIUM NA-STAT [id number] 08:15:00 Test Item Value Reference Range Comments SODIUM (BEAKER) (test ddqo=149) 130 meq/L 135-148 GLUCOSE-STAT [id number] 08:15:00 Test Item Value Reference Range Comments GLUCOSE RANDOM (BEAKER) (test jbzi=315) 172 mg/dL 70-110 HGB/HCT (H&H) - STAT [id number] 08:15:00 Test Item Value Reference Range Comments HEMOGLOBIN (BEAKER) (test qrfi=361) 8.8 g/dL 12.0-15.0 HEMATOCRIT (BEAKER) (test abgb=095) 26.0 % 36.0-45.0 BASIC METABOLIC [id number] 07:37:00 Test Item Value Reference Range Comments SODIUM (BEAKER) (test 135 meq/L 136-145 yvhg=445) POTASSIUM (BEAKER) (test 4.4 meq/L 3.5-5.1 mmgn=518) CHLORIDE (BEAKER) (test 100 meq/L 98-107 bkpw=572) CO2 (BEAKER) (test 23 meq/L 22-29 xsgk=270) BLOOD UREA NITROGEN 46 mg/dL 7-21 (BEAKER) (test slgm=653) CREATININE (BEAKER) (test 1.98 mg/dL 0.57-1.25 nduq=433) GLUCOSE RANDOM (BEAKER) 188 mg/dL 70-105 (test fnss=357) CALCIUM (BEAKER) (test 8.9 mg/dL 8.4-10.2 jyof=526) EGFR (BEAKER) (test 26 mL/min/1.73 sq m ESTIMATED GFR IS NOT zjvk=4819) ACCURATE CREATININE CLEARANCE IN PREDICTING GLOMERULAR FILTRATION RATE. ESTIMATED GFR IS NOT APPLICABLE FOR DIALYSIS PATIENTS. CBC W/PLT COUNT & AUTO [id number] 07:20:00 Test Item Value Reference Range Comments WHITE BLOOD CELL COUNT (BEAKER) (test loxb=963) 20.2 K/ L 3.5-10.5 RED BLOOD CELL COUNT (BEAKER) (test dvad=853) 3.86 M/ L 3.93-5.22 HEMOGLOBIN (BEAKER) (test qgqv=992) 9.1 GM/DL 11.2-15.7 HEMATOCRIT (BEAKER) (test nsdi=354) 29.4 % 34.1-44.9 MEAN CORPUSCULAR VOLUME (BEAKER) (test sxqx=347) 76.2 fL 79.4-94.8 MEAN CORPUSCULAR HEMOGLOBIN (BEAKER) (test 23.6 pg 25.6-32.2 fhrt=194) MEAN CORPUSCULAR HEMOGLOBIN CONC (BEAKER) (test 31.0 GM/DL 32.2-35.5 vqka=528) RED CELL DISTRIBUTION WIDTH (BEAKER) (test 14.9 % 11.7-14.4 lzce=136) PLATELET COUNT (BEAKER) (test yybd=423) 343 K/CU MM 150-450 MEAN PLATELET VOLUME (BEAKER) (test eqch=612) 9.5 fL 9.4-12.3 NUCLEATED RED BLOOD CELLS (BEAKER) (test 0 /100 WBC 0-0 eamz=994) NEUTROPHILS RELATIVE PERCENT (BEAKER) (test 78 % drrx=280) LYMPHOCYTES RELATIVE PERCENT (BEAKER) (test 15 % tejj=249) MONOCYTES RELATIVE PERCENT (BEAKER) (test 5 % pciz=716) EOSINOPHILS RELATIVE PERCENT (BEAKER) (test 1 % fvak=985) BASOPHILS RELATIVE PERCENT (BEAKER) (test 1 % zsar=691) NEUTROPHILS ABSOLUTE COUNT (BEAKER) (test 15.70 K/ L 1.56-6.13 brmf=706) LYMPHOCYTES ABSOLUTE COUNT (BEAKER) (test 2.99 K/ L 1.18-3.74 lrvh=837) MONOCYTES ABSOLUTE COUNT (BEAKER) (test 0.93 K/ L 0.24-0.36 nbck=437) EOSINOPHILS ABSOLUTE COUNT (BEAKER) (test 0.20 K/ L 0.04-0.36 xdrq=230) BASOPHILS ABSOLUTE COUNT (BEAKER) (test 0.12 K/ L 0.01-0.08 exea=214) IMMATURE GRANULOCYTES-RELATIVE PERCENT (BEAKER) 1 % 0-1 (test bdhi=6183) POCT-GLUCOSE [id number] 07:03:00 Test Item Value Reference Range Comments POC-GLUCOSE METER (BEAKER) 186 mg/dL 70-110 TESTED AT [address] (test zjkm=0366) [place] [address] B-TYPE NATRIURETIC FACTOR (BNP)2017-06-10 12:44:00 Test Item Value Reference Range Comments B-TYPE NATRIURETIC PEPTIDE (BEAKER) (test 1264 pg/mL 0-100 rlme=032) [id number] 12:36:00 Test Item Value Reference Range Comments MAGNESIUM (BEAKER) (test tuna=972) 1.6 mg/dL 1.6-2.6 BASIC METABOLIC [id number] 12:36:00 Test Item Value Reference Range Comments SODIUM (BEAKER) (test 137 meq/L 136-145 kodq=268) POTASSIUM (BEAKER) (test 5.4 meq/L 3.5-5.1 tegq=199) CHLORIDE (BEAKER) (test 108 meq/L 98-107 ihnz=366) CO2 (BEAKER) (test 21 meq/L 22-29 rqvq=465) BLOOD UREA NITROGEN 39 mg/dL 7-21 (BEAKER) (test xsff=837) CREATININE (BEAKER) (test 1.49 mg/dL 0.57-1.25 scoy=656) GLUCOSE RANDOM (BEAKER) 219 mg/dL 70-105 (test bbsa=833) CALCIUM (BEAKER) (test 8.5 mg/dL 8.4-10.2 pamy=005) EGFR (BEAKER) (test 35 mL/min/1.73 sq m ESTIMATED GFR IS NOT wsvr=6809) ACCURATE CREATININE CLEARANCE IN PREDICTING GLOMERULAR FILTRATION RATE. ESTIMATED GFR IS NOT APPLICABLE FOR DIALYSIS PATIENTS. POCT-GLUCOSE [id number] 12:04:00 Test Item Value Reference Range Comments POC-GLUCOSE METER (BEAKER) 274 mg/dL 70-110 TESTED AT [address] (test afbb=4941) [place] [id number] POCT-GLUCOSE [id number] 07:21:00 Test Item Value Reference Range Comments POC-GLUCOSE METER (BEAKER) 137 mg/dL 70-110 TESTED AT [facility] [address] [facility] (test pbiq=7728) [facility] [address] BASIC METABOLIC [id number] 05:10:00 Test Item Value Reference Range Comments SODIUM (BEAKER) (test 137 meq/L 136-145 qtwj=835) POTASSIUM (BEAKER) (test 4.1 meq/L 3.5-5.1 dzzf=856) CHLORIDE (BEAKER) (test 106 meq/L 98-107 bqcv=553) CO2 (BEAKER) (test 24 meq/L 22-29 vxmd=266) BLOOD UREA NITROGEN 42 mg/dL 7-21 (BEAKER) (test dqmb=961) CREATININE (BEAKER) (test 1.64 mg/dL 0.57-1.25 xnvz=974) GLUCOSE RANDOM (BEAKER) 162 mg/dL 70-105 (test uyeo=506) CALCIUM (BEAKER) (test 8.1 mg/dL 8.4-10.2 oboa=474) EGFR (BEAKER) (test 32 mL/min/1.73 sq m ESTIMATED GFR IS NOT faal=1708) ACCURATE CREATININE CLEARANCE IN PREDICTING GLOMERULAR FILTRATION RATE. ESTIMATED GFR IS NOT APPLICABLE FOR DIALYSIS PATIENTS. CBC (HEMOGRAM ONLY)2017-06-01 04:30:00 Test Item Value Reference Range Comments WHITE BLOOD CELL COUNT (BEAKER) (test xpxj=052) 6.4 K/ L 3.5-10.5 RED BLOOD CELL COUNT (BEAKER) (test akvk=562) 3.38 M/ L 3.93-5.22 HEMOGLOBIN (BEAKER) (test wuoy=159) 8.7 GM/DL 11.2-15.7 HEMATOCRIT (BEAKER) (test tasa=964) 28.2 % 34.1-44.9 MEAN CORPUSCULAR VOLUME (BEAKER) (test sooc=837) 83.4 fL 79.4-94.8 MEAN CORPUSCULAR HEMOGLOBIN (BEAKER) (test 25.7 pg 25.6-32.2 sage=916) MEAN CORPUSCULAR HEMOGLOBIN CONC (BEAKER) (test 30.9 GM/DL 32.2-35.5 vpgi=965) RED CELL DISTRIBUTION WIDTH (BEAKER) (test 15.2 % 11.7-14.4 xval=204) PLATELET COUNT (BEAKER) (test nnrj=073) 320 K/CU MM 150-450 MEAN PLATELET VOLUME (BEAKER) (test jgei=664) 9.5 fL 9.4-12.3 NUCLEATED RED BLOOD CELLS (BEAKER) (test 0 /100 WBC 0-0 sgci=341) POCT-GLUCOSE [id number] 21:23:00 Test Item Value Reference Range Comments POC-GLUCOSE METER (BEAKER) 240 mg/dL 70-110 TESTED AT [address] (test nbtn=8784) [place] [id number] POCT-GLUCOSE [id number] 16:42:00 Test Item Value Reference Range Comments POC-GLUCOSE METER (BEAKER) 234 mg/dL 70-110 TESTED AT [address] (test zdnc=8569) [place] [id number] POCT-GLUCOSE [id number] 13:22:00 Test Item Value Reference Range Comments POC-GLUCOSE METER (BEAKER) 166 mg/dL 70-110 TESTED AT [address] (test acnp=3675) [facility] [address] RAD, CHEST, 1 VIEW, NON [id number] 09:43:00Reason for exam:->s/p ACBShould this be performed [...] Ring Verified Date/Time: 05/31/2017 09: 43:30 ReadingLocation: [facility] B1 [id number] Ortho Consult Reading Room POCT-GLUCOSE [id number] 06:57:00 Test Item Value Reference Range Comments POC-GLUCOSE METER (BEAKER) 136 mg/dL 70-110 TESTED AT [facility] [address] (test sxwd=9934) [facility] [address] CALCIUM, [id number] 06:41:00 Test Item Value Reference Range Comments CALCIUM IONIZED (BEAKER) (test irvw=170) 1.10 mmol/L 1.12-1.27 PH, BLOOD (BEAKER) (test ibmj=4847) 7.42 [id number] 06:17:00 Test Item Value Reference Range Comments PHOSPHORUS (BEAKER) (test mrby=309) 3.3 mg/dL 2.3-4.7 [id number] 06:17:00 Test Item Value Reference Range Comments MAGNESIUM (BEAKER) (test rfmz=013) 1.8 mg/dL 1.6-2.6 BASIC METABOLIC [id number] 06:17:00 Test Item Value Reference Range Comments SODIUM (BEAKER) (test 131 meq/L 136-145 ggdg=933) POTASSIUM (BEAKER) (test 4.5 meq/L 3.5-5.1 ilrw=616) CHLORIDE (BEAKER) (test 103 meq/L 98-107 ltdm=527) CO2 (BEAKER) (test 21 meq/L 22-29 nhnp=238) BLOOD UREA NITROGEN 43 mg/dL 7-21 (BEAKER) (test wsbn=589) CREATININE (BEAKER) (test 1.74 mg/dL 0.57-1.25 qvtt=200) GLUCOSE RANDOM (BEAKER) 126 mg/dL 70-105 (test lsuu=100) CALCIUM (BEAKER) (test 8.1 mg/dL 8.4-10.2 alkt=990) EGFR (BEAKER) (test 30 mL/min/1.73 sq m ESTIMATED GFR IS NOT oxvt=9154) ACCURATE CREATININE CLEARANCE IN PREDICTING GLOMERULAR FILTRATION RATE. ESTIMATED GFR IS NOT APPLICABLE FOR DIALYSIS PATIENTS. CBC W/PLT COUNT & AUTO [id number] 05:07:00 Test Item Value Reference Range Comments WHITE BLOOD CELL COUNT (BEAKER) (test zaji=165) 5.9 K/ L 3.5-10.5 RED BLOOD CELL COUNT (BEAKER) (test nlnl=561) 3.16 M/ L 3.93-5.22 HEMOGLOBIN (BEAKER) (test usro=975) 8.2 GM/DL 11.2-15.7 HEMATOCRIT (BEAKER) (test jton=406) 26.6 % 34.1-44.9 MEAN CORPUSCULAR VOLUME (BEAKER) (test itca=180) 84.2 fL 79.4-94.8 MEAN CORPUSCULAR HEMOGLOBIN (BEAKER) (test 25.9 pg 25.6-32.2 ztit=130) MEAN CORPUSCULAR HEMOGLOBIN CONC (BEAKER) (test 30.8 GM/DL 32.2-35.5 suyf=187) RED CELL DISTRIBUTION WIDTH (BEAKER) (test 15.1 % 11.7-14.4 xzuu=569) PLATELET COUNT (BEAKER) (test gcox=248) 320 K/CU MM 150-450 MEAN PLATELET VOLUME (BEAKER) (test vjjn=210) 9.6 fL 9.4-12.3 NUCLEATED RED BLOOD CELLS (BEAKER) (test 0 /100 WBC 0-0 zioc=679) NEUTROPHILS RELATIVE PERCENT (BEAKER) (test 65 % ojsi=353) LYMPHOCYTES RELATIVE PERCENT (BEAKER) (test 24 % mxlo=197) MONOCYTES RELATIVE PERCENT (BEAKER) (test 8 % yvzw=805) EOSINOPHILS RELATIVE PERCENT (BEAKER) (test 2 % kxdj=391) BASOPHILS RELATIVE PERCENT (BEAKER) (test 1 % nhtq=236) NEUTROPHILS ABSOLUTE COUNT (BEAKER) (test 3.84 K/ L 1.56-6.13 dkdt=876) LYMPHOCYTES ABSOLUTE COUNT (BEAKER) (test 1.41 K/ L 1.18-3.74 uvjx=231) MONOCYTES ABSOLUTE COUNT (BEAKER) (test 0.47 K/ L 0.24-0.36 rqvb=268) EOSINOPHILS ABSOLUTE COUNT (BEAKER) (test 0.11 K/ L 0.04-0.36 hmng=977) BASOPHILS ABSOLUTE COUNT (BEAKER) (test 0.05 K/ L 0.01-0.08 fhjc=685) IMMATURE GRANULOCYTES-RELATIVE PERCENT (BEAKER) 1 % 0-1 (test rtbh=7356) POCT-GLUCOSE [id number] 20:56:00 Test Item Value Reference Range Comments POC-GLUCOSE METER (BEAKER) 196 mg/dL 70-110 TESTED AT [facility] [address] [facility] (test hdsu=0719) [facility] [address] POCT-GLUCOSE [id number] 16:42:00 Test Item Value Reference Range Comments POC-GLUCOSE METER (BEAKER) 196 mg/dL 70-110 TESTED AT [facility] [address] [facility] (test oggw=0070) [facility] [address] POCT-GLUCOSE [id number] 11:45:00 Test Item Value Reference Range Comments POC-GLUCOSE METER (BEAKER) 215 mg/dL 70-110 TESTED AT [place] [id number] [facility] (test rojm=6099) [facility] [address] RAD, CHEST, 1 VIEW, NON [id number] 11:15:00Reason for exam:->s/p ACBShould this be performed at the bedside?->YesFINAL REPORT Chest one view compared to May 28, 2017 Discussion: Airspace opacities are seen in both lower lung regions, probably atelectasis. Correlate clinically for infection. I could not exclude small effusions. No pneumothorax. Upper lungs clear. Signed: Jeannette Nava Verified Date/Time: 2017 11:15:07 Reading Location: [facility] Radiology Reading Room CALCIUM, [id number] 09:21:00 Test Item Value Reference Range Comments CALCIUM IONIZED (BEAKER) (test gdkv=799) 1.11 mmol/L 1.12-1.27 PH, BLOOD (BEAKER) (test pydg=8449) 7.36 BASIC METABOLIC [id number] 07:37:00 Test Item Value Reference Range Comments SODIUM (BEAKER) (test 135 meq/L 136-145 hzdp=182) POTASSIUM (BEAKER) (test 4.9 meq/L 3.5-5.1 fsoj=718) CHLORIDE (BEAKER) (test 105 meq/L 98-107 clfx=379) CO2 (BEAKER) (test 25 meq/L 22-29 rcez=305) BLOOD UREA NITROGEN 44 mg/dL 7-21 (BEAKER) (test tcby=099) CREATININE (BEAKER) (test 1.76 mg/dL 0.57-1.25 qpxk=839) GLUCOSE RANDOM (BEAKER) 136 mg/dL 70-105 (test trmw=151) CALCIUM (BEAKER) (test 8.2 mg/dL 8.4-10.2 rpch=238) EGFR (BEAKER) (test 29 mL/min/1.73 sq m ESTIMATED GFR IS NOT rqgi=0844) ACCURATE CREATININE CLEARANCE IN PREDICTING GLOMERULAR FILTRATION RATE. ESTIMATED GFR IS NOT APPLICABLE FOR DIALYSIS PATIENTS. [id number] 07:28:00 Test Item Value Reference Range Comments PHOSPHORUS (BEAKER) (test gesv=608) 3.8 mg/dL 2.3-4.7 [id number] 07:28:00 Test Item Value Reference Range Comments MAGNESIUM (BEAKER) (test mhxa=291) 1.9 mg/dL 1.6-2.6 CBC W/PLT COUNT & AUTO [id number] 07:26:00 Test Item Value Reference Range Comments WHITE BLOOD CELL COUNT (BEAKER) (test zxrt=214) 6.3 K/ L 3.5-10.5 RED BLOOD CELL COUNT (BEAKER) (test gara=419) 3.32 M/ L 3.93-5.22 HEMOGLOBIN (BEAKER) (test klad=218) 8.5 GM/DL 11.2-15.7 HEMATOCRIT (BEAKER) (test epdz=440) 27.8 % 34.1-44.9 MEAN CORPUSCULAR VOLUME (BEAKER) (test gknu=648) 83.7 fL 79.4-94.8 MEAN CORPUSCULAR HEMOGLOBIN (BEAKER) (test 25.6 pg 25.6-32.2 pagp=507) MEAN CORPUSCULAR HEMOGLOBIN CONC (BEAKER) (test 30.6 GM/DL 32.2-35.5 phic=735) RED CELL DISTRIBUTION WIDTH (BEAKER) (test 15.0 % 11.7-14.4 kcab=621) PLATELET COUNT (BEAKER) (test txfq=843) 336 K/CU MM 150-450 MEAN PLATELET VOLUME (BEAKER) (test wveh=778) 9.8 fL 9.4-12.3 NUCLEATED RED BLOOD CELLS (BEAKER) (test 0 /100 WBC 0-0 tdwv=101) NEUTROPHILS RELATIVE PERCENT (BEAKER) (test 65 % lajw=965) LYMPHOCYTES RELATIVE PERCENT (BEAKER) (test 24 % ncla=419) MONOCYTES RELATIVE PERCENT (BEAKER) (test 7 % gtvn=120) EOSINOPHILS RELATIVE PERCENT (BEAKER) (test 3 % huzn=211) BASOPHILS RELATIVE PERCENT (BEAKER) (test 0 % zdzw=062) NEUTROPHILS ABSOLUTE COUNT (BEAKER) (test 4.13 K/ L 1.56-6.13 bdmm=354) LYMPHOCYTES ABSOLUTE COUNT (BEAKER) (test 1.50 K/ L 1.18-3.74 iiyx=135) MONOCYTES ABSOLUTE COUNT (BEAKER) (test 0.44 K/ L 0.24-0.36 nkcr=197) EOSINOPHILS ABSOLUTE COUNT (BEAKER) (test 0.20 K/ L 0.04-0.36 ckzz=643) BASOPHILS ABSOLUTE COUNT (BEAKER) (test 0.02 K/ L 0.01-0.08 bdfc=577) IMMATURE GRANULOCYTES-RELATIVE PERCENT (BEAKER) 1 % 0-1 (test oerz=7680) POCT-GLUCOSE [id number] 07:21:00 Test Item Value Reference Range Comments POC-GLUCOSE METER (BEAKER) 146 mg/dL 70-110 TESTED AT [address] (test fqgs=9495) [place] [address] POCT-GLUCOSE [id number] 22:02:00 Test Item Value Reference Range Comments POC-GLUCOSE METER (BEAKER) 201 mg/dL 70-110 TESTED AT [address] (test hnjt=5576) [place] [address] POCT-GLUCOSE [id number] 18:27:00 Test Item Value Reference Range Comments POC-GLUCOSE METER (BEAKER) 240 mg/dL 70-110 TESTED AT [address] (test tydq=1834) [place] [id number] POCT-GLUCOSE [id number] 12:13:00 Test Item Value Reference Range Comments POC-GLUCOSE METER (BEAKER) 193 mg/dL 70-110 TESTED AT [address] (test akwp=6290) [place] [id number] POCT-GLUCOSE [id number] 09:02:00 Test Item Value Reference Range Comments POC-GLUCOSE METER (BEAKER) 132 mg/dL 70-110 TESTED AT [address] (test mfro=6409) [place] [id number] CALCIUM, [id number] 05:42:00 Test Item Value Reference Range Comments CALCIUM IONIZED (BEAKER) (test ofas=232) 1.12 mmol/L 1.12-1.27 PH, BLOOD (BEAKER) (test yjqn=8435) 7.34 COMPREHENSIVE METABOLIC [id number] 05:33:00 Test Item Value Reference Range Comments TOTAL PROTEIN (BEAKER) 5.9 gm/dL 6.0-8.3 (test ewlz=400) ALBUMIN (BEAKER) (test 2.7 g/dL 3.5-5.0 cyou=3216) ALKALINE PHOSPHATASE 130 U/L 40-150 (BEAKER) (test yahk=087) BILIRUBIN TOTAL (BEAKER) 0.3 mg/dL 0.2-1.2 (test ejhd=886) SODIUM (BEAKER) (test 135 meq/L 136-145 qjrz=075) POTASSIUM (BEAKER) (test 4.7 meq/L 3.5-5.1 ykzh=163) CHLORIDE (BEAKER) (test 105 meq/L 98-107 dedq=618) CO2 (BEAKER) (test 24 meq/L 22-29 qpka=416) BLOOD UREA NITROGEN 42 mg/dL 7-21 (BEAKER) (test hhht=797) CREATININE (BEAKER) (test 1.78 mg/dL 0.57-1.25 tcvg=770) GLUCOSE RANDOM (BEAKER) 129 mg/dL 70-105 (test mfup=851) CALCIUM (BEAKER) (test 8.5 mg/dL 8.4-10.2 ypua=218) AST (SGOT) (BEAKER) (test 23 U/L 5-34 lnjp=771) ALT (SGPT) (BEAKER) (test 15 U/L 6-55 vquj=414) EGFR (BEAKER) (test 29 mL/min/1.73 sq m ESTIMATED GFR IS NOT fpit=7379) ACCURATE CREATININE CLEARANCE IN PREDICTING GLOMERULAR FILTRATION RATE. ESTIMATED GFR IS NOT APPLICABLE FOR DIALYSIS PATIENTS. [id number] 05:32:00 Test Item Value Reference Range Comments PHOSPHORUS (BEAKER) (test fmvo=745) 3.6 mg/dL 2.3-4.7 [id number] 05:32:00 Test Item Value Reference Range Comments MAGNESIUM (BEAKER) (test ypfg=956) 2.2 mg/dL 1.6-2.6 CBC W/PLT COUNT & AUTO [id number] 05:01:00 Test Item Value Reference Range Comments WHITE BLOOD CELL COUNT (BEAKER) (test ehlx=857) 6.4 K/ L 3.5-10.5 RED BLOOD CELL COUNT (BEAKER) (test itun=229) 3.43 M/ L 3.93-5.22 HEMOGLOBIN (BEAKER) (test ameh=205) 8.9 GM/DL 11.2-15.7 HEMATOCRIT (BEAKER) (test azbq=235) 28.9 % 34.1-44.9 MEAN CORPUSCULAR VOLUME (BEAKER) (test fsmi=459) 84.3 fL 79.4-94.8 MEAN CORPUSCULAR HEMOGLOBIN (BEAKER) (test 25.9 pg 25.6-32.2 tvxv=041) MEAN CORPUSCULAR HEMOGLOBIN CONC (BEAKER) (test 30.8 GM/DL 32.2-35.5 auzn=125) RED CELL DISTRIBUTION WIDTH (BEAKER) (test 15.0 % 11.7-14.4 jpqw=335) PLATELET COUNT (BEAKER) (test opck=560) 324 K/CU MM 150-450 MEAN PLATELET VOLUME (BEAKER) (test upyo=146) 9.3 fL 9.4-12.3 NUCLEATED RED BLOOD CELLS (BEAKER) (test 0 /100 WBC 0-0 pnov=288) NEUTROPHILS RELATIVE PERCENT (BEAKER) (test 62 % ydjv=925) LYMPHOCYTES RELATIVE PERCENT (BEAKER) (test 25 % iode=478) MONOCYTES RELATIVE PERCENT (BEAKER) (test 8 % toup=095) EOSINOPHILS RELATIVE PERCENT (BEAKER) (test 4 % hdzv=392) BASOPHILS RELATIVE PERCENT (BEAKER) (test 1 % nmya=990) NEUTROPHILS ABSOLUTE COUNT (BEAKER) (test 3.93 K/ L 1.56-6.13 tdbq=731) LYMPHOCYTES ABSOLUTE COUNT (BEAKER) (test 1.60 K/ L 1.18-3.74 tovj=778) MONOCYTES ABSOLUTE COUNT (BEAKER) (test 0.51 K/ L 0.24-0.36 ncgg=004) EOSINOPHILS ABSOLUTE COUNT (BEAKER) (test 0.25 K/ L 0.04-0.36 dmxy=993) BASOPHILS ABSOLUTE COUNT (BEAKER) (test 0.03 K/ L 0.01-0.08 amhw=781) IMMATURE GRANULOCYTES-RELATIVE PERCENT (BEAKER) 1 % 0-1 (test teie=9576) POCT-GLUCOSE [id number] 21:04:00 Test Item Value Reference Range Comments POC-GLUCOSE METER (BEAKER) 165 mg/dL 70-110 TESTED AT [address] (test mtyn=0990) [place] [id number] POCT-GLUCOSE [id number] 17:30:00 Test Item Value Reference Range Comments POC-GLUCOSE METER (BEAKER) 236 mg/dL 70-110 TESTED AT [address] (test lyzp=1475) [place] [address] RAD, CHEST, 1 VIEW, NON [id number] 13:53:00Reason for exam:->assess for ill-defined opacityShould this [...] [place] Verified Date/Time: 05/28/2017 13:53:03 Reading Location: [address] Radiology Reading Room Electronically signed by: LUIS ALBERTO CALLAWAY M.D. on 01:53 PMPOCT-GLUCOSE [id number] 11:53:00 Test Item Value Reference Range Comments POC-GLUCOSE METER (BEAKER) 215 mg/dL 70-110 TESTED AT [address] (test zzgv=5829) [facility] [address] POCT-GLUCOSE [id number] 08:32:00 Test Item Value Reference Range Comments POC-GLUCOSE METER (BEAKER) 168 mg/dL 70-110 TESTED AT [address] (test izyl=0275) [place] [id number] CALCIUM, [id number] 05:44:00 Test Item Value Reference Range Comments CALCIUM IONIZED (BEAKER) (test fkvh=517) 1.09 mmol/L 1.12-1.27 PH, BLOOD (BEAKER) (test uvjp=9737) 7.38 [id number] 05:44:00 Test Item Value Reference Range Comments PHOSPHORUS (BEAKER) (test mskp=715) 3.5 mg/dL 2.3-4.7 [id number] 05:44:00 Test Item Value Reference Range Comments MAGNESIUM (BEAKER) (test reiu=154) 1.9 mg/dL 1.6-2.6 BASIC METABOLIC [id number] 05:44:00 Test Item Value Reference Range Comments SODIUM (BEAKER) (test 137 meq/L 136-145 majn=556) POTASSIUM (BEAKER) (test 4.5 meq/L 3.5-5.1 wrir=337) CHLORIDE (BEAKER) (test 108 meq/L 98-107 gtvq=471) CO2 (BEAKER) (test 23 meq/L 22-29 frua=325) BLOOD UREA NITROGEN 41 mg/dL 7-21 (BEAKER) (test ayeo=499) CREATININE (BEAKER) (test 1.41 mg/dL 0.57-1.25 dcjx=497) GLUCOSE RANDOM (BEAKER) 113 mg/dL 70-105 (test mrek=160) CALCIUM (BEAKER) (test 8.1 mg/dL 8.4-10.2 qeck=274) EGFR (BEAKER) (test 38 mL/min/1.73 sq m ESTIMATED GFR IS NOT aohn=7209) ACCURATE CREATININE CLEARANCE IN PREDICTING GLOMERULAR FILTRATION RATE. ESTIMATED GFR IS NOT APPLICABLE FOR DIALYSIS PATIENTS. CBC W/PLT COUNT & AUTO [id number] 05:05:00 Test Item Value Reference Range Comments WHITE BLOOD CELL COUNT (BEAKER) (test vtuw=944) 6.3 K/ L 3.5-10.5 RED BLOOD CELL COUNT (BEAKER) (test lwtq=750) 3.40 M/ L 3.93-5.22 HEMOGLOBIN (BEAKER) (test awje=712) 8.8 GM/DL 11.2-15.7 HEMATOCRIT (BEAKER) (test vxuz=325) 29.0 % 34.1-44.9 MEAN CORPUSCULAR VOLUME (BEAKER) (test ntep=051) 85.3 fL 79.4-94.8 MEAN CORPUSCULAR HEMOGLOBIN (BEAKER) (test 25.9 pg 25.6-32.2 fach=399) MEAN CORPUSCULAR HEMOGLOBIN CONC (BEAKER) (test 30.3 GM/DL 32.2-35.5 wwyj=663) RED CELL DISTRIBUTION WIDTH (BEAKER) (test 14.9 % 11.7-14.4 utsh=502) PLATELET COUNT (BEAKER) (test ynre=296) 282 K/CU MM 150-450 MEAN PLATELET VOLUME (BEAKER) (test acrm=850) 9.5 fL 9.4-12.3 NUCLEATED RED BLOOD CELLS (BEAKER) (test 0 /100 WBC 0-0 jban=690) NEUTROPHILS RELATIVE PERCENT (BEAKER) (test 59 % hmyu=341) LYMPHOCYTES RELATIVE PERCENT (BEAKER) (test 28 % dftc=423) MONOCYTES RELATIVE PERCENT (BEAKER) (test 7 % vsgx=043) EOSINOPHILS RELATIVE PERCENT (BEAKER) (test 4 % kjci=050) BASOPHILS RELATIVE PERCENT (BEAKER) (test 1 % ufdz=540) NEUTROPHILS ABSOLUTE COUNT (BEAKER) (test 3.75 K/ L 1.56-6.13 bife=969) LYMPHOCYTES ABSOLUTE COUNT (BEAKER) (test 1.80 K/ L 1.18-3.74 unyp=116) MONOCYTES ABSOLUTE COUNT (BEAKER) (test 0.45 K/ L 0.24-0.36 gdnw=584) EOSINOPHILS ABSOLUTE COUNT (BEAKER) (test 0.25 K/ L 0.04-0.36 kxoy=344) BASOPHILS ABSOLUTE COUNT (BEAKER) (test 0.05 K/ L 0.01-0.08 cvld=678) IMMATURE GRANULOCYTES-RELATIVE PERCENT (BEAKER) 1 % 0-1 (test nxyi=7476) POCT-GLUCOSE [id number] 21:03:00 Test Item Value Reference Range Comments POC-GLUCOSE METER (BEAKER) 173 mg/dL 70-110 TESTED AT [address] (test qfly=6980) [place] [address] [id number] 18:15:00 Test Item Value Reference Range Comments ACTIVATED CLOTTING TIME 147 sec TESTED AT [address] (BEAKER) (test chwf=504) [place] [address] [id number] 18:15:00 Test Item Value Reference Range Comments ACTIVATED CLOTTING TIME 246 sec TESTED AT [place] [id number] [address] (BEAKER) (test rfet=184) [facility] [address] POCT-GLUCOSE [id number] 12:39:00 Test Item Value Reference Range Comments POC-GLUCOSE METER (BEAKER) 219 mg/dL 70-110 TESTED AT [address] (test htot=4088) [facility] [address] RAD, CHEST, 1 VIEW, NON [id number] 10:11:00Reason for exam:->pl effusionShould this be performed at the bedside?->YesFINAL REPORT Chest one view compared to May 26 Discussion: There is cardiac prominence. Upper lungs are clear. Ill-defined basilar densities are similar probably atelectasis. No gross effusion or pneumothorax with bilateral chest tubes in place. Signed: Jeannette Nava Verified Date/Time: 2017 10:11:44 Reading Location: [facility] Radiology Reading Room POCT- GLUCOSE [id number] 07:05:00 Test Item Value Reference Range Comments POC-GLUCOSE METER (BEAKER) 167 mg/dL 70-110 TESTED AT [address] (test lxom=2607) [facility] [address] CALCIUM, [id number] 06:20:00 Test Item Value Reference Range Comments CALCIUM IONIZED (BEAKER) (test yntb=638) 0.98 mmol/L 1.12-1.27 PH, BLOOD (BEAKER) (test kpor=0184) 7.50 [id number] 04:56:00 Test Item Value Reference Range Comments PHOSPHORUS (BEAKER) (test rtkz=907) 2.6 mg/dL 2.3-4.7 [id number] 04:56:00 Test Item Value Reference Range Comments MAGNESIUM (BEAKER) (test xnap=391) 2.0 mg/dL 1.6-2.6 BASIC METABOLIC [id number] 04:56:00 Test Item Value Reference Range Comments SODIUM (BEAKER) (test 135 meq/L 136-145 jeol=424) POTASSIUM (BEAKER) (test 4.5 meq/L 3.5-5.1 ahhf=185) CHLORIDE (BEAKER) (test 105 meq/L 98-107 ragf=433) CO2 (BEAKER) (test 22 meq/L 22-29 pxsy=166) BLOOD UREA NITROGEN 47 mg/dL 7-21 (BEAKER) (test oktf=530) CREATININE (BEAKER) (test 1.44 mg/dL 0.57-1.25 dfwd=574) GLUCOSE RANDOM (BEAKER) 177 mg/dL 70-105 (test llki=425) CALCIUM (BEAKER) (test 8.0 mg/dL 8.4-10.2 bvqt=657) EGFR (BEAKER) (test 37 mL/min/1.73 sq m ESTIMATED GFR IS NOT iwwm=7957) ACCURATE CREATININE CLEARANCE IN PREDICTING GLOMERULAR FILTRATION RATE. ESTIMATED GFR IS NOT APPLICABLE FOR DIALYSIS PATIENTS. CBC W/PLT COUNT & AUTO [id number] 04:36:00 Test Item Value Reference Range Comments WHITE BLOOD CELL COUNT (BEAKER) (test kumb=639) 6.1 K/ L 3.5-10.5 RED BLOOD CELL COUNT (BEAKER) (test ewnk=042) 3.35 M/ L 3.93-5.22 HEMOGLOBIN (BEAKER) (test sega=335) 8.6 GM/DL 11.2-15.7 HEMATOCRIT (BEAKER) (test oysl=499) 28.0 % 34.1-44.9 MEAN CORPUSCULAR VOLUME (BEAKER) (test lboi=653) 83.6 fL 79.4-94.8 MEAN CORPUSCULAR HEMOGLOBIN (BEAKER) (test 25.7 pg 25.6-32.2 zaui=498) MEAN CORPUSCULAR HEMOGLOBIN CONC (BEAKER) (test 30.7 GM/DL 32.2-35.5 przq=246) RED CELL DISTRIBUTION WIDTH (BEAKER) (test 14.7 % 11.7-14.4 wknz=265) PLATELET COUNT (BEAKER) (test hfxs=283) 280 K/CU MM 150-450 MEAN PLATELET VOLUME (BEAKER) (test dbuy=808) 9.9 fL 9.4-12.3 NUCLEATED RED BLOOD CELLS (BEAKER) (test 0 /100 WBC 0-0 dqnu=223) NEUTROPHILS RELATIVE PERCENT (BEAKER) (test 65 % whmh=774) LYMPHOCYTES RELATIVE PERCENT (BEAKER) (test 23 % vodb=571) MONOCYTES RELATIVE PERCENT (BEAKER) (test 7 % fitq=749) EOSINOPHILS RELATIVE PERCENT (BEAKER) (test 4 % lkoo=820) BASOPHILS RELATIVE PERCENT (BEAKER) (test 1 % egny=239) NEUTROPHILS ABSOLUTE COUNT (BEAKER) (test 3.97 K/ L 1.56-6.13 sbbi=330) LYMPHOCYTES ABSOLUTE COUNT (BEAKER) (test 1.41 K/ L 1.18-3.74 fshl=072) MONOCYTES ABSOLUTE COUNT (BEAKER) (test 0.44 K/ L 0.24-0.36 ekpm=784) EOSINOPHILS ABSOLUTE COUNT (BEAKER) (test 0.22 K/ L 0.04-0.36 oook=744) BASOPHILS ABSOLUTE COUNT (BEAKER) (test 0.05 K/ L 0.01-0.08 pgyc=022) IMMATURE GRANULOCYTES-RELATIVE PERCENT (BEAKER) 1 % 0-1 (test fcpk=2493) POCT-GLUCOSE [id number] 21:29:00 Test Item Value Reference Range Comments POC-GLUCOSE METER (BEAKER) 147 mg/dL 70-110 TESTED AT [address] (test lkqv=5876) [place] [address] POCT-GLUCOSE [id number] 17:51:00 Test Item Value Reference Range Comments POC-GLUCOSE METER (BEAKER) 224 mg/dL 70-110 TESTED AT [address] (test juoi=5663) [place] [address] POCT-GLUCOSE [id number] 13:53:00 Test Item Value Reference Range Comments POC-GLUCOSE METER (BEAKER) 182 mg/dL 70-110 TESTED AT [address] (test hlnc=0830) [place] [id number] RAD, CHEST, 1 VIEW, NON [id number] 08:44:00Reason for exam:->pl effusionShould this be performed [...] Verified Date/Time : 05/26/2017 08:44:25 Reading Location: [address] Radiology Reading Room POCT- GLUCOSE [id number] 07:43:00 Test Item Value Reference Range Comments POC-GLUCOSE METER (BEAKER) 113 mg/dL 70-110 TESTED AT [facility] [address] [facility] (test whjp=3407) [facility] [address] CALCIUM, [id number] 06:31:00 Test Item Value Reference Range Comments CALCIUM IONIZED (BEAKER) (test qdyj=276) 1.07 mmol/L 1.12-1.27 PH, BLOOD (BEAKER) (test iikw=7878) 7.38 [id number] 04:51:00 Test Item Value Reference Range Comments PHOSPHORUS (BEAKER) (test yhld=459) 3.2 mg/dL 2.3-4.7 [id number] 04:51:00 Test Item Value Reference Range Comments MAGNESIUM (BEAKER) (test hiug=027) 2.1 mg/dL 1.6-2.6 BASIC METABOLIC [id number] 04:51:00 Test Item Value Reference Range Comments SODIUM (BEAKER) (test 139 meq/L 136-145 wtta=185) POTASSIUM (BEAKER) (test 4.1 meq/L 3.5-5.1 jcou=402) CHLORIDE (BEAKER) (test 106 meq/L 98-107 dvfo=565) CO2 (BEAKER) (test 24 meq/L 22-29 frkb=362) BLOOD UREA NITROGEN 52 mg/dL 7-21 (BEAKER) (test imkg=504) CREATININE (BEAKER) (test 1.52 mg/dL 0.57-1.25 kfrs=380) GLUCOSE RANDOM (BEAKER) 108 mg/dL 70-105 (test xpsk=468) CALCIUM (BEAKER) (test 8.4 mg/dL 8.4-10.2 fdkm=148) EGFR (BEAKER) (test 35 mL/min/1.73 sq m ESTIMATED GFR IS NOT mlfx=8335) ACCURATE CREATININE CLEARANCE IN PREDICTING GLOMERULAR FILTRATION RATE. ESTIMATED GFR IS NOT APPLICABLE FOR DIALYSIS PATIENTS. CBC W/PLT COUNT & AUTO [id number] 04:27:00 Test Item Value Reference Range Comments WHITE BLOOD CELL COUNT (BEAKER) (test cqwn=850) 7.2 K/ L 3.5-10.5 RED BLOOD CELL COUNT (BEAKER) (test nusz=261) 3.53 M/ L 3.93-5.22 HEMOGLOBIN (BEAKER) (test qizo=908) 9.1 GM/DL 11.2-15.7 HEMATOCRIT (BEAKER) (test xdge=677) 29.5 % 34.1-44.9 MEAN CORPUSCULAR VOLUME (BEAKER) (test dmdn=338) 83.6 fL 79.4-94.8 MEAN CORPUSCULAR HEMOGLOBIN (BEAKER) (test 25.8 pg 25.6-32.2 znhu=382) MEAN CORPUSCULAR HEMOGLOBIN CONC (BEAKER) (test 30.8 GM/DL 32.2-35.5 sucp=707) RED CELL DISTRIBUTION WIDTH (BEAKER) (test 14.6 % 11.7-14.4 jlsp=032) PLATELET COUNT (BEAKER) (test dlct=932) 296 K/CU MM 150-450 MEAN PLATELET VOLUME (BEAKER) (test hdes=626) 9.5 fL 9.4-12.3 NUCLEATED RED BLOOD CELLS (BEAKER) (test 0 /100 WBC 0-0 abui=500) NEUTROPHILS RELATIVE PERCENT (BEAKER) (test 67 % lfmx=414) LYMPHOCYTES RELATIVE PERCENT (BEAKER) (test 21 % elvh=049) MONOCYTES RELATIVE PERCENT (BEAKER) (test 7 % asmu=356) EOSINOPHILS RELATIVE PERCENT (BEAKER) (test 4 % dotz=837) BASOPHILS RELATIVE PERCENT (BEAKER) (test 1 % uipv=191) NEUTROPHILS ABSOLUTE COUNT (BEAKER) (test 4.79 K/ L 1.56-6.13 chwc=362) LYMPHOCYTES ABSOLUTE COUNT (BEAKER) (test 1.49 K/ L 1.18-3.74 ejry=484) MONOCYTES ABSOLUTE COUNT (BEAKER) (test 0.50 K/ L 0.24-0.36 ugzm=996) EOSINOPHILS ABSOLUTE COUNT (BEAKER) (test 0.30 K/ L 0.04-0.36 ibdl=467) BASOPHILS ABSOLUTE COUNT (BEAKER) (test 0.05 K/ L 0.01-0.08 atrz=243) IMMATURE GRANULOCYTES-RELATIVE PERCENT (BEAKER) 0 % 0-1 (test toms=8157) POCT-GLUCOSE [id number] 23:48:00 Test Item Value Reference Range Comments POC-GLUCOSE METER (BEAKER) 123 mg/dL 70-110 TESTED AT [address] (test oeio=6016) [place] [address] POCT-GLUCOSE [id number] 16:46:00 Test Item Value Reference Range Comments POC-GLUCOSE METER (BEAKER) 178 mg/dL 70-110 TESTED AT [address] (test ldrw=3392) [place] [address] BASIC METABOLIC [id number] 05:53:00 Test Item Value Reference Range Comments SODIUM (BEAKER) (test 139 meq/L 136-145 pxff=629) POTASSIUM (BEAKER) (test 3.9 meq/L 3.5-5.1 pomy=700) CHLORIDE (BEAKER) (test 106 meq/L 98-107 zoey=343) CO2 (BEAKER) (test 23 meq/L 22-29 ogeo=958) BLOOD UREA NITROGEN 62 mg/dL 7-21 (BEAKER) (test bgop=142) CREATININE (BEAKER) (test 2.05 mg/dL 0.57-1.25 pvte=866) GLUCOSE RANDOM (BEAKER) 87 mg/dL 70-105 (test kzla=285) CALCIUM (BEAKER) (test 7.9 mg/dL 8.4-10.2 kzqf=914) EGFR (BEAKER) (test 25 mL/min/1.73 sq m ESTIMATED GFR IS NOT zvxq=8474) ACCURATE CREATININE CLEARANCE IN PREDICTING GLOMERULAR FILTRATION RATE. ESTIMATED GFR IS NOT APPLICABLE FOR DIALYSIS PATIENTS. [id number] 05:52:00 Test Item Value Reference Range Comments PHOSPHORUS (BEAKER) (test gmpg=003) 4.2 mg/dL 2.3-4.7 [id number] 05:52:00 Test Item Value Reference Range Comments MAGNESIUM (BEAKER) (test asxf=400) 2.3 mg/dL 1.6-2.6 CALCIUM, [id number] 05:27:00 Test Item Value Reference Range Comments CALCIUM IONIZED (BEAKER) (test fhaf=143) 1.12 mmol/L 1.12-1.27 PH, BLOOD (BEAKER) (test qxlz=7172) 7.38 CBC W/PLT COUNT & AUTO [id number] 05:07:00 Test Item Value Reference Range Comments WHITE BLOOD CELL COUNT (BEAKER) (test kiju=206) 8.4 K/ L 3.5-10.5 RED BLOOD CELL COUNT (BEAKER) (test nodi=654) 3.16 M/ L 3.93-5.22 HEMOGLOBIN (BEAKER) (test kpou=191) 8.2 GM/DL 11.2-15.7 HEMATOCRIT (BEAKER) (test xhax=403) 26.5 % 34.1-44.9 MEAN CORPUSCULAR VOLUME (BEAKER) (test oymz=430) 83.9 fL 79.4-94.8 MEAN CORPUSCULAR HEMOGLOBIN (BEAKER) (test 25.9 pg 25.6-32.2 adde=665) MEAN CORPUSCULAR HEMOGLOBIN CONC (BEAKER) (test 30.9 GM/DL 32.2-35.5 mbga=951) RED CELL DISTRIBUTION WIDTH (BEAKER) (test 14.6 % 11.7-14.4 cssn=211) PLATELET COUNT (BEAKER) (test cdty=163) 256 K/CU MM 150-450 MEAN PLATELET VOLUME (BEAKER) (test beok=918) 10.0 fL 9.4-12.3 NUCLEATED RED BLOOD CELLS (BEAKER) (test 0 /100 WBC 0-0 sblu=836) NEUTROPHILS RELATIVE PERCENT (BEAKER) (test 63 % uwcz=909) LYMPHOCYTES RELATIVE PERCENT (BEAKER) (test 25 % lmgw=843) MONOCYTES RELATIVE PERCENT (BEAKER) (test 8 % hsbx=554) EOSINOPHILS RELATIVE PERCENT (BEAKER) (test 3 % xkuv=344) BASOPHILS RELATIVE PERCENT (BEAKER) (test 1 % gmoa=777) NEUTROPHILS ABSOLUTE COUNT (BEAKER) (test 5.27 K/ L 1.56-6.13 vjsf=793) LYMPHOCYTES ABSOLUTE COUNT (BEAKER) (test 2.09 K/ L 1.18-3.74 tufa=964) MONOCYTES ABSOLUTE COUNT (BEAKER) (test 0.63 K/ L 0.24-0.36 smju=313) EOSINOPHILS ABSOLUTE COUNT (BEAKER) (test 0.27 K/ L 0.04-0.36 ttuz=656) BASOPHILS ABSOLUTE COUNT (BEAKER) (test 0.05 K/ L 0.01-0.08 vuuf=019) IMMATURE GRANULOCYTES-RELATIVE PERCENT (BEAKER) 1 % 0-1 (test kyxi=5053) RAD, CHEST, 1 VIEW, NON [id number] 04:45:00Reason for exam:->pl effusionShould this be performed [...] MDReport Verified Date/Time: 05/25/2017 04:45:08 Reading Location: [address] Body Reading Room POCT-GLUCOSE [id number] 01:52:00 Test Item Value Reference Range Comments POC-GLUCOSE METER (BEAKER) 126 mg/dL 70-110 TESTED AT [address] (test wedr=3630) [facility] [address] POCT-GLUCOSE [id number] 13:07:00 Test Item Value Reference Range Comments POC-GLUCOSE METER (BEAKER) 118 mg/dL 70-110 TESTED AT [place] [id number] (test uvfn=0576) [place] [id number] BRONCHIAL CULTURE + GRAM [id number] 11:35:00 Test Item Value Reference Range Comments CULTURE (BEAKER) (test bjyl=3316) Amikacin (test code=1) Susceptible 0-16 , Resistant [...] >40 code=47) CULTURE (BEAKER) (test 4+ Bordetella knwp=9604) bronchiseptica GRAM STAIN RESULT 1+ WBCs (BEAKER) (test roiu=9941) GRAM STAIN RESULT <1+ gram positive (BEAKER) (test cocci in pairs yyvq=196373) GRAM STAIN RESULT 1+ gram variable (BEAKER) (test rods fhin=817580) 1+ Normal respiratory todd presentRAD, CHEST, 1 VIEW, NON [id number] 06:50: 00Reason for exam:->pl effusionShould this be [...] MDReport Verified Date/Time: 05/24/2017 06:50:08 Reading Location: [address] Body Reading Room BASIC METABOLIC [id number] 04: 19:00 Test Item Value Reference Range Comments SODIUM (BEAKER) (test 136 meq/L 136-145 okrs=553) POTASSIUM (BEAKER) (test 4.3 meq/L 3.5-5.1 spxr=329) CHLORIDE (BEAKER) (test 104 meq/L 98-107 faiz=421) CO2 (BEAKER) (test 20 meq/L 22-29 foes=674) BLOOD UREA NITROGEN 61 mg/dL 7-21 (BEAKER) (test eagt=157) CREATININE (BEAKER) (test 2.69 mg/dL 0.57-1.25 ucjx=350) GLUCOSE RANDOM (BEAKER) 107 mg/dL 70-105 (test tjlc=438) CALCIUM (BEAKER) (test 7.8 mg/dL 8.4-10.2 jstk=931) EGFR (BEAKER) (test 18 mL/min/1.73 sq m ESTIMATED GFR IS NOT whnz=0274) ACCURATE CREATININE CLEARANCE IN PREDICTING GLOMERULAR FILTRATION RATE. ESTIMATED GFR IS NOT APPLICABLE FOR DIALYSIS PATIENTS. CALCIUM, [id number] 04:16:00 Test Item Value Reference Range Comments CALCIUM IONIZED (BEAKER) (test mzlh=920) 1.06 mmol/L 1.12-1.27 PH, BLOOD (BEAKER) (test ljoo=1001) 7.40 [id number] 04:11:00 Test Item Value Reference Range Comments PHOSPHORUS (BEAKER) (test vjhq=588) 6.0 mg/dL 2.3-4.7 [id number] 04:11:00 Test Item Value Reference Range Comments MAGNESIUM (BEAKER) (test soep=075) 2.4 mg/dL 1.6-2.6 CBC W/PLT COUNT & AUTO [id number] 03:50:00 Test Item Value Reference Range Comments WHITE BLOOD CELL COUNT (BEAKER) (test bexe=191) 9.5 K/ L 3.5-10.5 RED BLOOD CELL COUNT (BEAKER) (test rwvr=772) 3.06 M/ L 3.93-5.22 HEMOGLOBIN (BEAKER) (test xzwq=836) 7.9 GM/DL 11.2-15.7 HEMATOCRIT (BEAKER) (test worr=249) 25.5 % 34.1-44.9 MEAN CORPUSCULAR VOLUME (BEAKER) (test vbkq=709) 83.3 fL 79.4-94.8 MEAN CORPUSCULAR HEMOGLOBIN (BEAKER) (test 25.8 pg 25.6-32.2 kaxx=284) MEAN CORPUSCULAR HEMOGLOBIN CONC (BEAKER) (test 31.0 GM/DL 32.2-35.5 lfiv=213) RED CELL DISTRIBUTION WIDTH (BEAKER) (test 15.1 % 11.7-14.4 jmpx=149) PLATELET COUNT (BEAKER) (test uumg=308) 224 K/CU MM 150-450 MEAN PLATELET VOLUME (BEAKER) (test nxyn=170) 10.5 fL 9.4-12.3 NUCLEATED RED BLOOD CELLS (BEAKER) (test 0 /100 WBC 0-0 nvfj=833) NEUTROPHILS RELATIVE PERCENT (BEAKER) (test 70 % qzda=119) LYMPHOCYTES RELATIVE PERCENT (BEAKER) (test 21 % bdhf=176) MONOCYTES RELATIVE PERCENT (BEAKER) (test 7 % ehst=679) EOSINOPHILS RELATIVE PERCENT (BEAKER) (test 2 % dgaz=042) BASOPHILS RELATIVE PERCENT (BEAKER) (test 0 % vscz=111) NEUTROPHILS ABSOLUTE COUNT (BEAKER) (test 6.60 K/ L 1.56-6.13 yxtt=540) LYMPHOCYTES ABSOLUTE COUNT (BEAKER) (test 2.02 K/ L 1.18-3.74 hjbx=145) MONOCYTES ABSOLUTE COUNT (BEAKER) (test 0.63 K/ L 0.24-0.36 ypiw=196) EOSINOPHILS ABSOLUTE COUNT (BEAKER) (test 0.15 K/ L 0.04-0.36 vvwl=169) BASOPHILS ABSOLUTE COUNT (BEAKER) (test 0.04 K/ L 0.01-0.08 dqtj=542) IMMATURE GRANULOCYTES-RELATIVE PERCENT (BEAKER) 0 % 0-1 (test glst=0224) POCT-GLUCOSE [id number] 20:45:00 Test Item Value Reference Range Comments POC-GLUCOSE METER (BEAKER) 143 mg/dL 70-110 TESTED AT [address] (test txhn=4419) [facility] [address] POCT-GLUCOSE [id number] 20:45:00 Test Item Value Reference Range Comments POC-GLUCOSE METER (BEAKER) 145 mg/dL 70-110 TESTED AT [address] (test vldr=9574) [facility] [address] [id number] 13:37:00 Test Item Value Reference Range Comments PREALBUMIN (BEAKER) (test 10 mg/dL 14-45 Specimen slightly hemolyzed ktqj=007) OXYGEN SATURATION, [id number] 12:31:00 Test Item Value Reference Range Comments O2 SATURATION (MEASURED) (BEAKER) (test iuph=2482) 94.5 % [id number] 11:02:00 Test Item Value Reference Range Comments PREALBUMIN (BEAKER) (test wpgh=910) 10 mg/dL 14-45 RAD, CHEST, 1 VIEW, NON [id number] 05:14:00while patient is intubated or has chest [...] MDReport Verified Date/Time: 05/23/2017 05:14:04 Reading Location: [address] Body Reading Room BASIC METABOLIC [id number] 03:48:00 Test Item Value Reference Range Comments SODIUM (BEAKER) (test 138 meq/L 136-145 itsc=621) POTASSIUM (BEAKER) (test 4.6 meq/L 3.5-5.1 Specimen slightly wshw=585) hemolyzed CHLORIDE (BEAKER) (test 106 meq/L 98-107 lkhq=629) CO2 (BEAKER) (test 20 meq/L 22-29 ujkm=098) BLOOD UREA NITROGEN 54 mg/dL 7-21 (BEAKER) (test txdx=983) CREATININE (BEAKER) (test 2.66 mg/dL 0.57-1.25 Specimen slightly zlwe=480) hemolyzed GLUCOSE RANDOM (BEAKER) 113 mg/dL 70-105 (test aukk=743) CALCIUM (BEAKER) (test 7.9 mg/dL 8.4-10.2 ydkc=870) EGFR (BEAKER) (test 18 mL/min/1.73 sq m ESTIMATED GFR IS NOT yiil=4085) ACCURATE CREATININE CLEARANCE IN PREDICTING GLOMERULAR FILTRATION RATE. ESTIMATED GFR IS NOT APPLICABLE FOR DIALYSIS PATIENTS. [id number] 03:46:00 Test Item Value Reference Range Comments MAGNESIUM (BEAKER) (test 2.4 mg/dL 1.6-2.6 Specimen slightly hemolyzed npsd=112) [id number] 03:46:00 Test Item Value Reference Range Comments PHOSPHORUS (BEAKER) (test 6.5 mg/dL 2.3-4.7 Specimen slightly hemolyzed iemn=287) CBC W/PLT COUNT & AUTO [id number] 03:26:00 Test Item Value Reference Range Comments WHITE BLOOD CELL COUNT (BEAKER) (test urma=581) 10.8 K/ L 3.5-10.5 RED BLOOD CELL COUNT (BEAKER) (test bgkg=865) 3.16 M/ L 3.93-5.22 HEMOGLOBIN (BEAKER) (test opif=324) 8.2 GM/DL 11.2-15.7 HEMATOCRIT (BEAKER) (test jyvb=005) 26.6 % 34.1-44.9 MEAN CORPUSCULAR VOLUME (BEAKER) (test zbbg=427) 84.2 fL 79.4-94.8 MEAN CORPUSCULAR HEMOGLOBIN (BEAKER) (test 25.9 pg 25.6-32.2 snrh=365) MEAN CORPUSCULAR HEMOGLOBIN CONC (BEAKER) (test 30.8 GM/DL 32.2-35.5 wzdc=443) RED CELL DISTRIBUTION WIDTH (BEAKER) (test 15.0 % 11.7-14.4 omcm=613) PLATELET COUNT (BEAKER) (test daph=107) 195 K/CU MM 150-450 MEAN PLATELET VOLUME (BEAKER) (test dsaj=145) 10.6 fL 9.4-12.3 NUCLEATED RED BLOOD CELLS (BEAKER) (test 0 /100 WBC 0-0 trzz=946) NEUTROPHILS RELATIVE PERCENT (BEAKER) (test 73 % wayv=127) LYMPHOCYTES RELATIVE PERCENT (BEAKER) (test 18 % jwvw=593) MONOCYTES RELATIVE PERCENT (BEAKER) (test 6 % ebti=281) EOSINOPHILS RELATIVE PERCENT (BEAKER) (test 2 % wlrb=399) BASOPHILS RELATIVE PERCENT (BEAKER) (test 1 % fxix=075) NEUTROPHILS ABSOLUTE COUNT (BEAKER) (test 7.95 K/ L 1.56-6.13 uufy=248) LYMPHOCYTES ABSOLUTE COUNT (BEAKER) (test 1.93 K/ L 1.18-3.74 vuhe=572) MONOCYTES ABSOLUTE COUNT (BEAKER) (test 0.66 K/ L 0.24-0.36 opgl=877) EOSINOPHILS ABSOLUTE COUNT (BEAKER) (test 0.18 K/ L 0.04-0.36 rrqm=505) BASOPHILS ABSOLUTE COUNT (BEAKER) (test 0.07 K/ L 0.01-0.08 xjei=389) IMMATURE GRANULOCYTES-RELATIVE PERCENT (BEAKER) 0 % 0-1 (test zwaz=9453) BLOOD GAS, [id number] 03:18:00 Test Item Value Reference Range Comments PH ARTERIAL (BEAKER) (test ggud=081) 7.40 7.35-7.45 PCO2 ARTERIAL (BEAKER) (test kzwt=838) 40 mmHg 35-45 PO2 ARTERIAL (BEAKER) (test czuh=721) 63 mmHg 80-90 O2 SATURATION ARTERIAL (BEAKER) (test gkux=781) 92.3 % 96.0-97.0 HCO3 ARTERIAL (BEAKER) (test ncbk=482) 24 mmol/L 21-29 BASE EXCESS ARTERIAL (BEAKER) (test luqn=422) -0.6 mmol/L -2.0-3.0 PATIENT TEMPERATURE (BEAKER) (test dxak=3180) 36.8 C FIO2 (BEAKER) (test jfiq=7364) 36.0 % CALCIUM, [id number] 16:32:00 Test Item Value Reference Range Comments CALCIUM IONIZED (BEAKER) (test zmpm=802) 1.11 mmol/L 1.12-1.27 PH, BLOOD (BEAKER) (test jmya=7123) 7.39 BASIC METABOLIC [id number] 15:43:00 Test Item Value Reference Range Comments SODIUM (BEAKER) (test 139 meq/L 136-145 rllu=804) POTASSIUM (BEAKER) (test 4.6 meq/L 3.5-5.1 sbad=047) CHLORIDE (BEAKER) (test 106 meq/L 98-107 wtdf=688) CO2 (BEAKER) (test 21 meq/L 22-29 qefg=017) BLOOD UREA NITROGEN 54 mg/dL 7-21 (BEAKER) (test zfzr=231) CREATININE (BEAKER) (test 3.08 mg/dL 0.57-1.25 ogxd=856) GLUCOSE RANDOM (BEAKER) 116 mg/dL 70-105 (test xywv=661) CALCIUM (BEAKER) (test 8.1 mg/dL 8.4-10.2 idvw=472) EGFR (BEAKER) (test 15 mL/min/1.73 sq m ESTIMATED GFR IS NOT uvlb=9115) ACCURATE CREATININE CLEARANCE IN PREDICTING GLOMERULAR FILTRATION RATE. ESTIMATED GFR IS NOT APPLICABLE FOR DIALYSIS PATIENTS. POCT-GLUCOSE [id number] 12:53:00 Test Item Value Reference Range Comments POC-GLUCOSE METER (BEAKER) 118 mg/dL 70-110 TESTED AT [address] (test hhrn=4938) [facility] [address] BLOOD GAS, [id number] 10:42:00 Test Item Value Reference Range Comments PH ARTERIAL (BEAKER) (test bzcb=991) 7.40 7.35-7.45 PCO2 ARTERIAL (BEAKER) (test hzqi=897) 38 mmHg 35-45 PO2 ARTERIAL (BEAKER) (test ktjw=954) 78 mmHg 80-90 O2 SATURATION ARTERIAL (BEAKER) (test dhwe=615) 95.6 % 96.0-97.0 HCO3 ARTERIAL (BEAKER) (test gknk=369) 23 mmol/L 21-29 BASE EXCESS ARTERIAL (BEAKER) (test ukvn=628) -1.4 mmol/L -2.0-3.0 PATIENT TEMPERATURE (BEAKER) (test gnzc=0018) 36.9 C FIO2 (BEAKER) (test rxoa=2363) 40.0 % POCT-GLUCOSE [id number] 06:46:00 Test Item Value Reference Range Comments POC-GLUCOSE METER (BEAKER) 106 mg/dL 70-110 TESTED AT [address] (test mfie=6101) [facility] [address] RAD, CHEST, 1 VIEW, NON [id number] 05:05:00while patient is intubated or has chest [...] MDRepemily Verified Date/Time: 05/22/2017 05:05:00 Reading Location: [facility] C013Y CT Body ReadingRoom BASIC METABOLIC [id number] 05:00:00 Test Item Value Reference Range Comments SODIUM (BEAKER) (test 138 meq/L 136-145 iycd=299) POTASSIUM (BEAKER) (test 4.5 meq/L 3.5-5.1 rcfa=829) CHLORIDE (BEAKER) (test 107 meq/L 98-107 jqcj=353) CO2 (BEAKER) (test 21 meq/L 22-29 oluq=280) BLOOD UREA NITROGEN 53 mg/dL 7-21 (BEAKER) (test boec=042) CREATININE (BEAKER) (test 3.23 mg/dL 0.57-1.25 scwz=887) GLUCOSE RANDOM (BEAKER) 126 mg/dL 70-105 (test rtau=329) CALCIUM (BEAKER) (test 8.1 mg/dL 8.4-10.2 maxi=075) EGFR (BEAKER) (test 15 mL/min/1.73 sq m ESTIMATED GFR IS NOT idtc=3615) ACCURATE CREATININE CLEARANCE IN PREDICTING GLOMERULAR FILTRATION RATE. ESTIMATED GFR IS NOT APPLICABLE FOR DIALYSIS PATIENTS. [id number] 04:41:00 Test Item Value Reference Range Comments PHOSPHORUS (BEAKER) (test vttp=142) 6.4 mg/dL 2.3-4.7 [id number] 04:41:00 Test Item Value Reference Range Comments MAGNESIUM (BEAKER) (test vxaw=155) 2.6 mg/dL 1.6-2.6 CALCIUM, [id number] 04:26:00 Test Item Value Reference Range Comments CALCIUM IONIZED (BEAKER) (test xrpv=112) 1.09 mmol/L 1.12-1.27 PH, BLOOD (BEAKER) (test gtej=8208) 7.40 OXYGEN SATURATION, [id number] 04:25:00 Test Item Value Reference Range Comments O2 SATURATION (MEASURED) (BEAKER) (test ikoa=4814) 77.0 % CBC W/PLT COUNT & AUTO [id number] 04:17:00 Test Item Value Reference Range Comments WHITE BLOOD CELL COUNT (BEAKER) (test athu=843) 8.9 K/ L 3.5-10.5 RED BLOOD CELL COUNT (BEAKER) (test ekrq=683) 3.14 M/ L 3.93-5.22 HEMOGLOBIN (BEAKER) (test kjxf=566) 8.1 GM/DL 11.2-15.7 HEMATOCRIT (BEAKER) (test mvcs=941) 26.1 % 34.1-44.9 MEAN CORPUSCULAR VOLUME (BEAKER) (test baxw=854) 83.1 fL 79.4-94.8 MEAN CORPUSCULAR HEMOGLOBIN (BEAKER) (test 25.8 pg 25.6-32.2 ftkz=642) MEAN CORPUSCULAR HEMOGLOBIN CONC (BEAKER) (test 31.0 GM/DL 32.2-35.5 whxm=826) RED CELL DISTRIBUTION WIDTH (BEAKER) (test 15.3 % 11.7-14.4 simc=191) PLATELET COUNT (BEAKER) (test tnpo=835) 156 K/CU MM 150-450 MEAN PLATELET VOLUME (BEAKER) (test iajl=460) 10.2 fL 9.4-12.3 NUCLEATED RED BLOOD CELLS (BEAKER) (test 0 /100 WBC 0-0 pvcl=466) NEUTROPHILS RELATIVE PERCENT (BEAKER) (test 68 % bmqx=532) LYMPHOCYTES RELATIVE PERCENT (BEAKER) (test 22 % fgxm=883) MONOCYTES RELATIVE PERCENT (BEAKER) (test 8 % xsvu=202) EOSINOPHILS RELATIVE PERCENT (BEAKER) (test 1 % iagp=159) BASOPHILS RELATIVE PERCENT (BEAKER) (test 1 % enhb=820) NEUTROPHILS ABSOLUTE COUNT (BEAKER) (test 6.05 K/ L 1.56-6.13 gbsl=656) LYMPHOCYTES ABSOLUTE COUNT (BEAKER) (test 1.91 K/ L 1.18-3.74 ykzo=682) MONOCYTES ABSOLUTE COUNT (BEAKER) (test 0.74 K/ L 0.24-0.36 blim=568) EOSINOPHILS ABSOLUTE COUNT (BEAKER) (test 0.08 K/ L 0.04-0.36 dsdx=824) BASOPHILS ABSOLUTE COUNT (BEAKER) (test 0.05 K/ L 0.01-0.08 nydk=196) IMMATURE GRANULOCYTES-RELATIVE PERCENT (BEAKER) 0 % 0-1 (test idvs=6319) LACTIC ACID, ARTERIAL, WHOLE [id number] 00:07:00 Test Item Value Reference Range Comments LACTATE BLOOD ARTERIAL (2) 1.0 mmol/L 0.5-2.2 Specimen slightly hemolyzed (BEAKER) (test pxhp=4522) Effective 08/02/2015: Units/Reference Range ChangeNew: 0.5-2.2 mmol/L Previous: 5 -20 mg/dLPOCT-GLUCOSE [id number] 23:47:00 Test Item Value Reference Range Comments POC-GLUCOSE METER (BEAKER) 180 mg/dL 70-110 TESTED AT [facility] [address] [facility] (test rhqh=5986) [facility] [address] BLOOD GAS, [id number] 23:46:00 Test Item Value Reference Range Comments PH ARTERIAL (BEAKER) (test juzk=653) 7.40 7.35-7.45 PCO2 ARTERIAL (BEAKER) (test dait=669) 37 mmHg 35-45 PO2 ARTERIAL (BEAKER) (test ywwr=618) 136 mmHg 80-90 O2 SATURATION ARTERIAL (BEAKER) (test iuzt=896) 98.7 % 96.0-97.0 HCO3 ARTERIAL (BEAKER) (test yfqx=106) 22 mmol/L 21-29 BASE EXCESS ARTERIAL (BEAKER) (test rvji=758) -2.4 mmol/L -2.0-3.0 PATIENT TEMPERATURE (BEAKER) (test fpan=9643) 37.0 C FIO2 (BEAKER) (test pypk=3314) 100.0 % SODIUM NA-STAT [id number] 23:46:00 Test Item Value Reference Range Comments SODIUM (BEAKER) (test tslx=768) 134 meq/L 135-148 GLUCOSE-STAT [id number] 23:46:00 Test Item Value Reference Range Comments GLUCOSE RANDOM (BEAKER) (test gycc=712) 119 mg/dL 70-110 HGB/HCT (H&H) - STAT [id number] 23:46:00 Test Item Value Reference Range Comments HEMOGLOBIN (BEAKER) (test uqll=526) 8.8 g/dL 12.0-15.0 HEMATOCRIT (BEAKER) (test shbn=104) 26.0 % 36.0-45.0 OXYGEN SATURATION, [id number] 23:45:00 Test Item Value Reference Range Comments O2 SATURATION (MEASURED) (BEAKER) (test mxhi=6869) 68.1 % POTASSIUM-STAT [id number] 23:45:00 Test Item Value Reference Range Comments POTASSIUM (BEAKER) (test adij=283) 5.5 meq/L 3.6-5.5 POCT-GLUCOSE [id number] 20:58:00 Test Item Value Reference Range Comments POC-GLUCOSE METER (BEAKER) 133 mg/dL 70-110 TESTED AT [address] (test yfrh=0229) [facility] [address] POCT-GLUCOSE [id number] 17:58:00 Test Item Value Reference Range Comments POC-GLUCOSE METER (BEAKER) 210 mg/dL 70-110 TESTED AT [address] (test xcpm=4853) [facility] [address] POCT-GLUCOSE [id number] 17:58:00 Test Item Value Reference Range Comments POC-GLUCOSE METER (BEAKER) 211 mg/dL 70-110 TESTED AT [address] (test rgvw=3635) [facility] [address] POCT-GLUCOSE [id number] 17:58:00 Test Item Value Reference Range Comments POC-GLUCOSE METER (BEAKER) 232 mg/dL 70-110 TESTED AT [address] (test pekn=0855) [facility] [address] POCT-GLUCOSE [id number] 17:58:00 Test Item Value Reference Range Comments POC-GLUCOSE METER (BEAKER) 262 mg/dL 70-110 TESTED AT [address] (test snaj=6118) [place] [id number] BLOOD GAS, [id number] 17:01:00 Test Item Value Reference Range Comments PH ARTERIAL (BEAKER) (test lmtn=163) 7.38 7.35-7.45 PCO2 ARTERIAL (BEAKER) (test azjx=300) 39 mmHg 35-45 PO2 ARTERIAL (BEAKER) (test efxm=744) 75 mmHg 80-90 O2 SATURATION ARTERIAL (BEAKER) (test dhxr=402) 94.9 % 96.0-97.0 HCO3 ARTERIAL (BEAKER) (test azmf=511) 23 mmol/L 21-29 BASE EXCESS ARTERIAL (BEAKER) (test zbau=331) -2.5 mmol/L -2.0-3.0 PATIENT TEMPERATURE (BEAKER) (test sndl=4426) 36.8 C FIO2 (BEAKER) (test zoah=1075) 60.0 % POTASSIUM-STAT [id number] 17:00:00 Test Item Value Reference Range Comments POTASSIUM (BEAKER) (test lxlw=554) 4.8 meq/L 3.6-5.5 POCT-GLUCOSE [id number] 15:52:00 Test Item Value Reference Range Comments POC-GLUCOSE METER (BEAKER) 267 mg/dL 70-110 TESTED AT [address] (test amww=0436) [place] [address] POCT-GLUCOSE [id number] 14:42:00 Test Item Value Reference Range Comments POC-GLUCOSE METER (BEAKER) 231 mg/dL 70-110 TESTED AT [address] (test bjcr=8817) [place] [address] BODY FLUID CELL COUNT WITH [id number] 14:41:00 Test Item Value Reference Range Comments APPEARANCE FLUID (BEAKER) (test hlgk=363) Turbid Clear COLOR FLUID (BEAKER) (test dnii=135) Colorless Colorless, Straw RBC FLUID (BEAKER) (test viwk=572) 2000 /cu mm <=1 ADJUSTED WBC FLUID (BEAKER) (test pshy=4254) 1489 /cu mm <=5 LINING CELLS (BEAKER) (test tqxw=5080) 119 /cu mm <=1 NEUTROPHILS FLUID (BEAKER) (test esuo=7685) 40 % LYMPHS FLUID (BEAKER) (test ugnm=240) 34 % MONO/MACROPHAGE FLUID (BEAKER) (test kkyj=483) 26 % EOSINOPHILS FLUID (BEAKER) (test ufgw=345) 0 % BASO FLUID (BEAKER) (test rwje=989) 0 % CONTAINER BODY FLUID (BEAKER) (test afyj=4913) EDTA Tube BASIC METABOLIC [id number] 14:11:00 Test Item Value Reference Range Comments SODIUM (BEAKER) (test 137 meq/L 136-145 zywh=527) POTASSIUM (BEAKER) (test 5.6 meq/L 3.5-5.1 rtyy=994) CHLORIDE (BEAKER) (test 106 meq/L 98-107 ytkp=151) CO2 (BEAKER) (test 20 meq/L 22-29 rpqc=935) BLOOD UREA NITROGEN 48 mg/dL 7-21 (BEAKER) (test nuiu=135) CREATININE (BEAKER) (test 2.50 mg/dL 0.57-1.25 xozl=822) GLUCOSE RANDOM (BEAKER) 221 mg/dL 70-105 (test jpbg=923) CALCIUM (BEAKER) (test 8.1 mg/dL 8.4-10.2 qyyn=954) EGFR (BEAKER) (test 20 mL/min/1.73 sq m ESTIMATED GFR IS NOT uhbb=9710) ACCURATE CREATININE CLEARANCE IN PREDICTING GLOMERULAR FILTRATION RATE. ESTIMATED GFR IS NOT APPLICABLE FOR DIALYSIS PATIENTS. [id number] 14:08:00 Test Item Value Reference Range Comments PHOSPHORUS (BEAKER) (test wxpg=246) 7.2 mg/dL 2.3-4.7 [id number] 14:08:00 Test Item Value Reference Range Comments MAGNESIUM (BEAKER) (test okgc=087) 2.6 mg/dL 1.6-2.6 POCT-GLUCOSE [id number] 12:49:00 Test Item Value Reference Range Comments POC-GLUCOSE METER (BEAKER) 224 mg/dL 70-110 TESTED AT [address] (test omyu=7174) [facility] [address] POCT-GLUCOSE [id number] 12:49:00 Test Item Value Reference Range Comments POC-GLUCOSE METER (BEAKER) 248 mg/dL 70-110 TESTED AT [address] (test zqxz=9336) [facility] [address] RAD, CHEST, 1 VIEW, NON [id number] 12:32:00Reason for exam:->re- intubationShould this be performed [...] MDReport Verified Date/Time: 05/21/2017 12:32:08 Reading Location: [facility] Radiology Reading Room POTASSIUM-STAT [id number] 12:28:00 Test Item Value Reference Range Comments POTASSIUM (BEAKER) (test jqay=084) 5.5 meq/L 3.6-5.5 BLOOD GAS, [id number] 12:28:00 Test Item Value Reference Range Comments PH ARTERIAL (BEAKER) (test ucog=472) 7.32 7.35-7.45 PCO2 ARTERIAL (BEAKER) (test ugvr=830) 45 mmHg 35-45 PO2 ARTERIAL (BEAKER) (test huui=087) 304 mmHg 80-90 O2 SATURATION ARTERIAL (BEAKER) (test kynm=599) 99.7 % 96.0-97.0 HCO3 ARTERIAL (BEAKER) (test twcp=099) 22 mmol/L 21-29 BASE EXCESS ARTERIAL (BEAKER) (test yyiq=494) -3.7 mmol/L -2.0-3.0 PATIENT TEMPERATURE (BEAKER) (test ztbl=0171) 37.0 C FIO2 (BEAKER) (test hbjo=9385) 100.0 % BLOOD GAS, [id number] 10:53:00 Test Item Value Reference Range Comments PH ARTERIAL (BEAKER) (test crfe=484) 7.36 7.35-7.45 PCO2 ARTERIAL (BEAKER) (test xwvk=148) 35 mmHg 35-45 PO2 ARTERIAL (BEAKER) (test uahn=892) 40 mmHg 80-90 O2 SATURATION ARTERIAL (BEAKER) (test mdxi=887) 82.3 % 96.0-97.0 HCO3 ARTERIAL (BEAKER) (test djle=510) 20 mmol/L 21-29 BASE EXCESS ARTERIAL (BEAKER) (test ojzj=743) -5.9 mmol/L -2.0-3.0 PATIENT TEMPERATURE (BEAKER) (test dcit=1089) 33.7 C FIO2 (BEAKER) (test nllv=8369) 36.0 % RAD, CHEST, 1 VIEW, NON [id number] 08:46:00while patient is intubated or has chest [...] Verified Date/ Time: 05/21/2017 08:46:27 Reading Location: [facility] Radiology Reading Room BLOOD GAS, [id number] 05:41:00 Test Item Value Reference Range Comments PH ARTERIAL (BEAKER) (test jhbw=493) 7.33 7.35-7.45 PCO2 ARTERIAL (BEAKER) (test jode=588) 40 mm Hg 35-45 PO2 ARTERIAL (BEAKER) (test cyxr=794) 106 mm Hg 80-90 O2 SATURATION ARTERIAL (BEAKER) (test fxbt=916) 97.5 % 96.0-97.0 HCO3 ARTERIAL (BEAKER) (test fdwt=599) 21 mmol/L 21-29 BASE EXCESS ARTERIAL (BEAKER) (test xayv=990) -5.1 mmol/L -2.0-3.0 PATIENT TEMPERATURE (BEAKER) (test iltl=7163) 37.0 FIO2 (BEAKER) (test mtcj=2775) 40 CALCIUM, [id number] 04:35:00 Test Item Value Reference Range Comments CALCIUM IONIZED (BEAKER) (test awpt=017) 1.13 mmol/L 1.12-1.27 PH, BLOOD (BEAKER) (test zvhj=1878) 7.32 BLOOD GAS, [id number] 04:28:00 Test Item Value Reference Range Comments PH ARTERIAL (BEAKER) (test pblo=263) 7.32 7.35-7.45 PCO2 ARTERIAL (BEAKER) (test jfhz=207) 40 mmHg 35-45 PO2 ARTERIAL (BEAKER) (test lnpt=231) 100 mmHg 80-90 O2 SATURATION ARTERIAL (BEAKER) (test lpfh=566) 97.2 % 96.0-97.0 HCO3 ARTERIAL (BEAKER) (test otcy=867) 20 mmol/L 21-29 BASE EXCESS ARTERIAL (BEAKER) (test xjmk=188) -5.7 mmol/L -2.0-3.0 PATIENT TEMPERATURE (BEAKER) (test ozgj=5604) 36.9 C FIO2 (BEAKER) (test gegz=4280) 40.0 % [id number] 04:20:00 Test Item Value Reference Range Comments PHOSPHORUS (BEAKER) (test ocyf=201) 6.2 mg/dL 2.3-4.7 [id number] 04:20:00 Test Item Value Reference Range Comments MAGNESIUM (BEAKER) (test zvah=510) 2.4 mg/dL 1.6-2.6 HEPATIC FUNCTION [id number] 04:20:00 Test Item Value Reference Range Comments TOTAL PROTEIN (BEAKER) (test igwh=432) 4.8 gm/dL 6.0-8.3 ALBUMIN (BEAKER) (test frwb=7305) 2.5 g/dL 3.5-5.0 BILIRUBIN TOTAL (BEAKER) (test iaax=158) 0.7 mg/dL 0.2-1.2 BILIRUBIN DIRECT (BEAKER) (test ctex=446) 0.3 mg/dL 0.1-0.5 ALKALINE PHOSPHATASE (BEAKER) (test gvqu=681) 96 U/L 40-150 AST (SGOT) (BEAKER) (test xjjb=186) 31 U/L 5-34 ALT (SGPT) (BEAKER) (test gfby=997) 11 U/L 6-55 BASIC METABOLIC [id number] 04:20:00 Test Item Value Reference Range Comments SODIUM (BEAKER) (test 134 meq/L 136-145 hpia=510) POTASSIUM (BEAKER) (test 5.0 meq/L 3.5-5.1 gnyq=769) CHLORIDE (BEAKER) (test 105 meq/L 98-107 ztml=939) CO2 (BEAKER) (test 18 meq/L 22-29 rmwq=020) BLOOD UREA NITROGEN 45 mg/dL 7-21 (BEAKER) (test lipv=617) CREATININE (BEAKER) (test 1.91 mg/dL 0.57-1.25 qvjw=775) GLUCOSE RANDOM (BEAKER) 247 mg/dL 70-105 (test ngov=984) CALCIUM (BEAKER) (test 7.9 mg/dL 8.4-10.2 reix=084) EGFR (BEAKER) (test 27 mL/min/1.73 sq m ESTIMATED GFR IS NOT ehyk=9628) ACCURATE CREATININE CLEARANCE IN PREDICTING GLOMERULAR FILTRATION RATE. ESTIMATED GFR IS NOT APPLICABLE FOR DIALYSIS PATIENTS. OXYGEN SATURATION, [id number] 04:18:00 Test Item Value Reference Range Comments O2 SATURATION (MEASURED) (BEAKER) (test ebhb=3588) 68.0 % LACTIC ACID, ARTERIAL, WHOLE [id number] 04:12:00 Test Item Value Reference Range Comments LACTATE BLOOD ARTERIAL (2) (BEAKER) (test 1.0 mmol/L 0.5-2.2 ncrb=4218) Effective 08/02/2015: Units/Reference Range ChangeNew: 0.5-2.2 mmol/L Previous: 5 -20 mg/dLCBC W/PLT COUNT & AUTO [id number] 04:00:00 Test Item Value Reference Range Comments WHITE BLOOD CELL COUNT (BEAKER) (test euyv=544) 12.0 K/ L 3.5-10.5 RED BLOOD CELL COUNT (BEAKER) (test qqea=650) 3.32 M/ L 3.93-5.22 HEMOGLOBIN (BEAKER) (test fctq=293) 8.8 GM/DL 11.2-15.7 HEMATOCRIT (BEAKER) (test fizi=144) 28.3 % 34.1-44.9 MEAN CORPUSCULAR VOLUME (BEAKER) (test mnml=621) 85.2 fL 79.4-94.8 MEAN CORPUSCULAR HEMOGLOBIN (BEAKER) (test 26.5 pg 25.6-32.2 ctqw=280) MEAN CORPUSCULAR HEMOGLOBIN CONC (BEAKER) (test 31.1 GM/DL 32.2-35.5 kupr=479) RED CELL DISTRIBUTION WIDTH (BEAKER) (test 15.0 % 11.7-14.4 kvhg=554) PLATELET COUNT (BEAKER) (test ykml=867) 157 K/CU MM 150-450 MEAN PLATELET VOLUME (BEAKER) (test zohg=888) 10.7 fL 9.4-12.3 NUCLEATED RED BLOOD CELLS (BEAKER) (test 0 /100 WBC 0-0 sgxf=292) NEUTROPHILS RELATIVE PERCENT (BEAKER) (test 91 % hogh=441) LYMPHOCYTES RELATIVE PERCENT (BEAKER) (test 4 % hqmo=624) MONOCYTES RELATIVE PERCENT (BEAKER) (test 4 % yyrh=303) EOSINOPHILS RELATIVE PERCENT (BEAKER) (test 0 % sdui=436) BASOPHILS RELATIVE PERCENT (BEAKER) (test 0 % cspz=349) NEUTROPHILS ABSOLUTE COUNT (BEAKER) (test 10.95 K/ L 1.56-6.13 rtuj=190) LYMPHOCYTES ABSOLUTE COUNT (BEAKER) (test 0.52 K/ L 1.18-3.74 whpt=028) MONOCYTES ABSOLUTE COUNT (BEAKER) (test 0.42 K/ L 0.24-0.36 txah=876) EOSINOPHILS ABSOLUTE COUNT (BEAKER) (test 0.01 K/ L 0.04-0.36 ujcs=131) BASOPHILS ABSOLUTE COUNT (BEAKER) (test 0.05 K/ L 0.01-0.08 fkli=138) IMMATURE GRANULOCYTES-RELATIVE PERCENT (BEAKER) 0 % 0-1 (test psda=8373) BLOOD GAS, [id number] 00:06:00 Test Item Value Reference Range Comments PH ARTERIAL (BEAKER) (test eifb=342) 7.26 7.35-7.45 PCO2 ARTERIAL (BEAKER) (test hwyg=582) 52 mmHg 35-45 PO2 ARTERIAL (BEAKER) (test jirj=100) 88 mmHg 80-90 O2 SATURATION ARTERIAL (BEAKER) (test wlks=276) 95.7 % 96.0-97.0 HCO3 ARTERIAL (BEAKER) (test xkgr=893) 23 mmol/L 21-29 BASE EXCESS ARTERIAL (BEAKER) (test psfz=541) -4.0 mmol/L -2.0-3.0 PATIENT TEMPERATURE (BEAKER) (test orst=0912) 36.4 C FIO2 (BEAKER) (test lmas=4141) 40.0 % [id number] 18:55:00 Test Item Value Reference Range Comments PHOSPHORUS (BEAKER) (test wgzy=615) 4.8 mg/dL 2.3-4.7 [id number] 18:55:00 Test Item Value Reference Range Comments MAGNESIUM (BEAKER) (test excj=027) 2.3 mg/dL 1.6-2.6 BASIC METABOLIC [id number] 18:55:00 Test Item Value Reference Range Comments SODIUM (BEAKER) (test 136 meq/L 136-145 ctax=241) POTASSIUM (BEAKER) (test 4.5 meq/L 3.5-5.1 zfea=302) CHLORIDE (BEAKER) (test 108 meq/L 98-107 pcer=982) CO2 (BEAKER) (test 21 meq/L 22-29 ykgr=771) BLOOD UREA NITROGEN 39 mg/dL 7-21 (BEAKER) (test fhhx=592) CREATININE (BEAKER) (test 1.58 mg/dL 0.57-1.25 yqui=441) GLUCOSE RANDOM (BEAKER) 172 mg/dL 70-105 (test ocvb=479) CALCIUM (BEAKER) (test 7.9 mg/dL 8.4-10.2 wpbo=938) EGFR (BEAKER) (test 33 mL/min/1.73 sq m ESTIMATED GFR IS NOT deym=1599) ACCURATE CREATININE CLEARANCE IN PREDICTING GLOMERULAR FILTRATION RATE. ESTIMATED GFR IS NOT APPLICABLE FOR DIALYSIS PATIENTS. LACTIC ACID, ARTERIAL, WHOLE [id number] 18:53:00 Test Item Value Reference Range Comments LACTATE BLOOD ARTERIAL (2) 0.9 mmol/L 0.5-2.2 Specimen slightly hemolyzed (BEAKER) (test phih=5748) Effective 08/02/2015: Units/Reference Range ChangeNew: 0.5-2.2 mmol/L Previous: 5 -20 mg/dLRAD, CHEST, 1 VIEW, NON [id number] 18:44:00Reason for exam:-> postop cardiacShould this be [...] MDReport Verified Date/Time: 2017 18:44:30 Reading Location: [address] Consult Reading Room Electronically signed by: LISA LI M.D. on05/20/2017 06:44 PMCBC W/PLT COUNT & AUTO [id number] 18:38:00 Test Item Value Reference Range Comments WHITE BLOOD CELL COUNT (BEAKER) (test esaw=173) 8.7 K/ L 3.5-10.5 RED BLOOD CELL COUNT (BEAKER) (test zejg=046) 3.33 M/ L 3.93-5.22 HEMOGLOBIN (BEAKER) (test diml=288) 8.7 GM/DL 11.2-15.7 HEMATOCRIT (BEAKER) (test clbw=445) 27.9 % 34.1-44.9 MEAN CORPUSCULAR VOLUME (BEAKER) (test iptl=684) 83.8 fL 79.4-94.8 MEAN CORPUSCULAR HEMOGLOBIN (BEAKER) (test 26.1 pg 25.6-32.2 qhpl=518) MEAN CORPUSCULAR HEMOGLOBIN CONC (BEAKER) (test 31.2 GM/DL 32.2-35.5 qwuc=044) RED CELL DISTRIBUTION WIDTH (BEAKER) (test 14.9 % 11.7-14.4 fqar=899) PLATELET COUNT (BEAKER) (test arhd=421) 137 K/CU MM 150-450 MEAN PLATELET VOLUME (BEAKER) (test xrng=931) 10.2 fL 9.4-12.3 NUCLEATED RED BLOOD CELLS (BEAKER) (test 0 /100 WBC 0-0 ncgl=031) NEUTROPHILS RELATIVE PERCENT (BEAKER) (test 79 % bkmt=633) LYMPHOCYTES RELATIVE PERCENT (BEAKER) (test 12 % dgmv=393) MONOCYTES RELATIVE PERCENT (BEAKER) (test 7 % aiia=996) EOSINOPHILS RELATIVE PERCENT (BEAKER) (test 1 % zspq=522) BASOPHILS RELATIVE PERCENT (BEAKER) (test 1 % uyeh=587) NEUTROPHILS ABSOLUTE COUNT (BEAKER) (test 6.83 K/ L 1.56-6.13 xrzh=024) LYMPHOCYTES ABSOLUTE COUNT (BEAKER) (test 1.06 K/ L 1.18-3.74 fjwr=948) MONOCYTES ABSOLUTE COUNT (BEAKER) (test 0.56 K/ L 0.24-0.36 emtk=449) EOSINOPHILS ABSOLUTE COUNT (BEAKER) (test 0.12 K/ L 0.04-0.36 zrqb=762) BASOPHILS ABSOLUTE COUNT (BEAKER) (test 0.04 K/ L 0.01-0.08 sxfo=604) IMMATURE GRANULOCYTES-RELATIVE PERCENT (BEAKER) 1 % 0-1 (test ymvm=0355) OXYGEN SATURATION, [id number] 18:36:00 Test Item Value Reference Range Comments O2 SATURATION (MEASURED) (BEAKER) (test beju=1629) 72.5 % From distal port of IJ central venous catheterSODIUM NA-STAT [id number] 18:30 :00 Test Item Value Reference Range Comments SODIUM (BEAKER) (test cxji=999) 132 meq/L 135-148 HGB/HCT (H&H) - STAT [id number] 18:30:00 Test Item Value Reference Range Comments HEMOGLOBIN (BEAKER) (test xtxm=759) 9.4 g/dL 12.0-15.0 HEMATOCRIT (BEAKER) (test yldk=917) 28.0 % 36.0-45.0 GLUCOSE-STAT [id number] 18:30:00 Test Item Value Reference Range Comments GLUCOSE RANDOM (BEAKER) (test twsh=355) 159 mg/dL 70-110 BLOOD GAS, [id number] 18:30:00 Test Item Value Reference Range Comments PH ARTERIAL (BEAKER) (test ojpx=274) 7.34 7.35-7.45 PCO2 ARTERIAL (BEAKER) (test zrpu=322) 43 mmHg 35-45 PO2 ARTERIAL (BEAKER) (test fcxc=350) 76 mmHg 80-90 O2 SATURATION ARTERIAL (BEAKER) (test ogjd=607) 94.9 % 96.0-97.0 HCO3 ARTERIAL (BEAKER) (test allv=217) 23 mmol/L 21-29 BASE EXCESS ARTERIAL (BEAKER) (test hovg=515) -2.6 mmol/L -2.0-3.0 PATIENT TEMPERATURE (BEAKER) (test kstz=4276) 36.4 C FIO2 (BEAKER) (test giic=5761) 60.0 % CALCIUM, [id number] 18:30:00 Test Item Value Reference Range Comments CALCIUM IONIZED (BEAKER) (test hdie=139) 0.94 mmol/L 1.12-1.27 PH, BLOOD (BEAKER) (test nroq=4600) 7.34 POTASSIUM-STAT [id number] 18:28:00 Test Item Value Reference Range Comments POTASSIUM (BEAKER) (test jjxj=330) 4.4 meq/L 3.6-5.5 THROMBOELASTOGRAPH ([id number] 18:11:00 Test Item Value Reference Range Comments TEG ACTIVATED CLOTTING TIME (BEAKER) (test 6.7 minutes 4.0-7.0 ganr=9622) TEG FIBRINOGEN ACTIVITY (BEAKER) (test 66.6 degrees 61.0-73.0 zjkk=7220) TEG PLT. AGGREGATION (BEAKER) (test rmml=8416) 62.4 MM 55.0-65.0 TEG FIBRINOLYSIS (BEAKER) (test deoi=1524) 0.0 % 0.0-5.0 TGH ACTIVATED CLOTTING TIME (BEAKER) (test 6.7 minutes 4.0-7.0 pzdm=7023) [facility] FIBRINOGEN ACTIVITY ([facility]) (test 69.0 degrees 61.0-73.0 lbdy=1728) TGH PLT. AGGREGATION ([facility]) (test bwce=6096) 62.8 MM 55.0-65.0 TGH FIBRINOLYSIS ([facility]) (test okxc=2268) 0.0 % 0.0-5.0 [id number] 17:53:00 Test Item Value Reference Range Comments ACTIVATED CLOTTING TIME 103 sec TESTED AT [address] ([facility]) (test auor=382) [place] [address] [id number] 17:53:00 Test Item Value Reference Range Comments ACTIVATED CLOTTING TIME 466 sec TESTED AT [address] ([facility]) (test goia=094) [place] [address] [id number] 17:53:00 Test Item Value Reference Range Comments ACTIVATED CLOTTING TIME 543 sec TESTED AT [address] ([facility]) (test qndv=444) [place] [address] [id number] 17:53:00 Test Item Value Reference Range Comments ACTIVATED CLOTTING TIME 549 sec TESTED AT [address] ([facility]) (test ufio=487) [place] [address] [id number] 17:53:00 Test Item Value Reference Range Comments ACTIVATED CLOTTING TIME 632 sec TESTED AT [address] ([facility]) (test esxg=502) [place] [address] [id number] 17:53:00 Test Item Value Reference Range Comments ACTIVATED CLOTTING TIME 494 sec TESTED AT [address] ([facility]) (test mbor=513) [place] [address] [id number] 17:53:00 Test Item Value Reference Range Comments ACTIVATED CLOTTING TIME 587 sec TESTED AT [address] ([facility]) (test xdul=173) [place] [address] [id number] 17:53:00 Test Item Value Reference Range Comments ACTIVATED CLOTTING TIME 626 sec TESTED AT [address] ([facility]) (test feae=974) [place] [address] [id number] 17:52:00 Test Item Value Reference Range Comments ACTIVATED CLOTTING TIME 808 sec TESTED AT [facility] [address] (BEAKER) (test oswj=753) [place] [address] [id number] 16:54:00 Test Item Value Reference Range Comments PARTIAL THROMBOPLASTIN TIME (BEAKER) (test 40.2 seconds 22.5-36.0 yfpc=314) [id number] 16:53:00 Test Item Value Reference Range Comments FIBRINOGEN LEVEL (BEAKER) (test bsco=138) 306 mg/dl 225-434 PROTHROMBIN [id number] 16:50:00 Test Item Value Reference Range Comments PROTIME (BEAKER) (test qtof=596) 19.6 seconds 11.7-14.7 INR (BEAKER) (test jbla=061) 1.7 <=5.9 RECOMMENDED COUMADIN/WARFARIN INR THERAPY RANGESSTANDARD DOSE: 2.0 - 3.0 Includes: PROPHYLAXIS forvenous thrombosis, systemic embolization; TREATMENT for venous thrombosis and/or pulmonary embolus.HIGH RISK: Target INR is 2.5-3.5 for patients with mechanical heart valves.PLATELET [id number] 16:45:00 Test Item Value Reference Range Comments PLATELET COUNT (BEAKER) (test xigl=039) 136 K/CU MM 150-450 POTASSIUM-STAT [id number] 16:15:00 Test Item Value Reference Range Comments POTASSIUM (BEAKER) (test ajla=290) 4.9 meq/L 3.6-5.5 BLOOD GAS, [id number] 16:15:00 Test Item Value Reference Range Comments PH ARTERIAL (BEAKER) (test vxfi=266) 7.39 7.35-7.45 PCO2 ARTERIAL (BEAKER) (test ljtv=807) 42 mmHg 35-45 PO2 ARTERIAL (BEAKER) (test nqnu=186) 201 mmHg 80-90 O2 SATURATION ARTERIAL (BEAKER) (test fgfr=334) 99.4 % 96.0-97.0 HCO3 ARTERIAL (BEAKER) (test ecvf=986) 25 mmol/L 21-29 BASE EXCESS ARTERIAL (BEAKER) (test ofac=477) -0.3 mmol/L -2.0-3.0 PATIENT TEMPERATURE (BEAKER) (test teii=0881) 36.3 C FIO2 (BEAKER) (test udmt=8337) 100.0 % SODIUM NA-STAT [id number] 16:15:00 Test Item Value Reference Range Comments SODIUM (BEAKER) (test kull=138) 131 meq/L 135-148 GLUCOSE-STAT [id number] 16:15:00 Test Item Value Reference Range Comments GLUCOSE RANDOM (BEAKER) (test nvhq=299) 198 mg/dL 70-110 HGB/HCT (H&H) - STAT [id number] 16:15:00 Test Item Value Reference Range Comments HEMOGLOBIN (BEAKER) (test opax=463) 7.5 g/dL 12.0-15.0 HEMATOCRIT (BEAKER) (test lxkr=741) 22.0 % 36.0-45.0 CALCIUM, [id number] 16:14:00 Test Item Value Reference Range Comments CALCIUM IONIZED (BEAKER) (test oqld=125) 0.91 mmol/L 1.12-1.27 PH, BLOOD (BEAKER) (test hdxo=3179) 7.39 BLOOD GAS, [id number] 15:39:00 Test Item Value Reference Range Comments PH ARTERIAL (BEAKER) (test gjtr=288) 7.44 7.35-7.45 PCO2 ARTERIAL (BEAKER) (test esyv=624) 38 mmHg 35-45 PO2 ARTERIAL (BEAKER) (test etoe=830) 298 mmHg 80-90 O2 SATURATION ARTERIAL (BEAKER) (test glgk=155) 99.7 % 96.0-97.0 HCO3 ARTERIAL (BEAKER) (test hyao=700) 25 mmol/L 21-29 BASE EXCESS ARTERIAL (BEAKER) (test vdmu=593) 0.7 mmol/L -2.0-3.0 PATIENT TEMPERATURE (BEAKER) (test jfny=0555) 36.2 C FIO2 (BEAKER) (test fzio=5973) 70.0 % SODIUM NA-STAT [id number] 15:39:00 Test Item Value Reference Range Comments SODIUM (BEAKER) (test bftx=188) 131 meq/L 135-148 GLUCOSE-STAT [id number] 15:39:00 Test Item Value Reference Range Comments GLUCOSE RANDOM (BEAKER) (test nuzg=395) 186 mg/dL 70-110 HGB/HCT (H&H) - STAT [id number] 15:39:00 Test Item Value Reference Range Comments HEMOGLOBIN (BEAKER) (test wljl=931) 7.5 g/dL 12.0-15.0 HEMATOCRIT (BEAKER) (test einj=866) 22.0 % 36.0-45.0 POTASSIUM-STAT [id number] 15:38:00 Test Item Value Reference Range Comments POTASSIUM (BEAKER) (test oijv=133) 5.3 meq/L 3.6-5.5 BLOOD GAS, [id number] 15:24:00 Test Item Value Reference Range Comments PH ARTERIAL (BEAKER) (test bmrw=045) 7.47 7.35-7.45 PCO2 ARTERIAL (BEAKER) (test remz=582) 37 mmHg 35-45 PO2 ARTERIAL (BEAKER) (test omio=942) 334 mmHg 80-90 O2 SATURATION ARTERIAL (BEAKER) (test sule=260) 99.8 % 96.0-97.0 HCO3 ARTERIAL (BEAKER) (test saoa=990) 26 mmol/L 21-29 BASE EXCESS ARTERIAL (BEAKER) (test zftu=677) 2.2 mmol/L -2.0-3.0 PATIENT TEMPERATURE (BEAKER) (test pmog=2118) 36.2 C FIO2 (BEAKER) (test rtbf=6973) 70.0 % SODIUM NA-STAT [id number] 15:24:00 Test Item Value Reference Range Comments SODIUM (BEAKER) (test sabl=839) 130 meq/L 135-148 GLUCOSE-STAT [id number] 15:24:00 Test Item Value Reference Range Comments GLUCOSE RANDOM (BEAKER) (test vuew=926) 189 mg/dL 70-110 HGB/HCT (H&H) - STAT [id number] 15:24:00 Test Item Value Reference Range Comments HEMOGLOBIN (BEAKER) (test sjqr=490) 6.7 g/dL 12.0-15.0 HEMATOCRIT (BEAKER) (test rpvr=307) 20.0 % 36.0-45.0 POTASSIUM-STAT [id number] 15:23:00 Test Item Value Reference Range Comments POTASSIUM (BEAKER) (test baaa=752) 5.4 meq/L 3.6-5.5 BLOOD GAS, [id number] 15:07:00 Test Item Value Reference Range Comments PH ARTERIAL (BEAKER) (test ihgp=447) 7.43 7.35-7.45 PCO2 ARTERIAL (BEAKER) (test lqwa=908) 41 mmHg 35-45 PO2 ARTERIAL (BEAKER) (test ydom=186) 365 mmHg 80-90 O2 SATURATION ARTERIAL (BEAKER) (test ldnq=313) 99.8 % 96.0-97.0 HCO3 ARTERIAL (BEAKER) (test fomq=223) 27 mmol/L 21-29 BASE EXCESS ARTERIAL (BEAKER) (test wctw=423) 1.9 mmol/L -2.0-3.0 PATIENT TEMPERATURE (BEAKER) (test oosi=8898) 35.8 C FIO2 (BEAKER) (test nkxd=1120) 70.0 % SODIUM NA-STAT [id number] 15:07:00 Test Item Value Reference Range Comments SODIUM (BEAKER) (test fjcw=231) 129 meq/L 135-148 GLUCOSE-STAT [id number] 15:07:00 Test Item Value Reference Range Comments GLUCOSE RANDOM (BEAKER) (test mguz=339) 172 mg/dL 70-110 HGB/HCT (H&H) - STAT [id number] 15:07:00 Test Item Value Reference Range Comments HEMOGLOBIN (BEAKER) (test ilgv=416) 7.1 g/dL 12.0-15.0 HEMATOCRIT (BEAKER) (test jsla=656) 21.0 % 36.0-45.0 POTASSIUM-STAT [id number] 15:04:00 Test Item Value Reference Range Comments POTASSIUM (BEAKER) (test pjtl=584) 5.0 meq/L 3.6-5.5 BLOOD GAS, [id number] 14:21:00 Test Item Value Reference Range Comments PH ARTERIAL (BEAKER) (test bvbc=843) 7.43 7.35-7.45 PCO2 ARTERIAL (BEAKER) (test fqyc=157) 38 mmHg 35-45 PO2 ARTERIAL (BEAKER) (test mjrb=047) 360 mmHg 80-90 O2 SATURATION ARTERIAL (BEAKER) (test axls=881) 99.8 % 96.0-97.0 HCO3 ARTERIAL (BEAKER) (test xmvc=320) 27 mmol/L 21-29 BASE EXCESS ARTERIAL (BEAKER) (test xwxd=143) 0.3 mmol/L -2.0-3.0 PATIENT TEMPERATURE (BEAKER) (test oosl=1978) 28.9 C FIO2 (BEAKER) (test jprv=8020) 70.0 % SODIUM NA-STAT [id number] 14:21:00 Test Item Value Reference Range Comments SODIUM (BEAKER) (test kpio=272) 133 meq/L 135-148 GLUCOSE-STAT [id number] 14:21:00 Test Item Value Reference Range Comments GLUCOSE RANDOM (BEAKER) (test ymvd=786) 160 mg/dL 70-110 HGB/HCT (H&H) - STAT [id number] 14:21:00 Test Item Value Reference Range Comments HEMOGLOBIN (BEAKER) (test hgte=285) 7.5 g/dL 12.0-15.0 HEMATOCRIT (BEAKER) (test wrrx=795) 22.0 % 36.0-45.0 POTASSIUM-STAT [id number] 14:20:00 Test Item Value Reference Range Comments POTASSIUM (BEAKER) (test iiuv=364) 4.7 meq/L 3.6-5.5 BLOOD GAS, [id number] 13:58:00 Test Item Value Reference Range Comments PH ARTERIAL (BEAKER) (test kdfm=885) 7.43 7.35-7.45 PCO2 ARTERIAL (BEAKER) (test vrbv=811) 37 mmHg 35-45 PO2 ARTERIAL (BEAKER) (test xqzy=642) 448 mmHg 80-90 O2 SATURATION ARTERIAL (BEAKER) (test cvia=165) 99.9 % 96.0-97.0 HCO3 ARTERIAL (BEAKER) (test qapx=060) 26 mmol/L 21-29 BASE EXCESS ARTERIAL (BEAKER) (test npkj=271) -0.1 mmol/L -2.0-3.0 PATIENT TEMPERATURE (BEAKER) (test gjdg=0275) 29.2 C FIO2 (BEAKER) (test lhpt=8919) 80.0 % SODIUM NA-STAT [id number] 13:58:00 Test Item Value Reference Range Comments SODIUM (BEAKER) (test nbok=185) 132 meq/L 135-148 GLUCOSE-STAT [id number] 13:58:00 Test Item Value Reference Range Comments GLUCOSE RANDOM (BEAKER) (test lflx=543) 166 mg/dL 70-110 HGB/HCT (H&H) - STAT [id number] 13:58:00 Test Item Value Reference Range Comments HEMOGLOBIN (BEAKER) (test gqsr=953) 7.5 g/dL 12.0-15.0 HEMATOCRIT (BEAKER) (test gxoh=396) 22.0 % 36.0-45.0 POTASSIUM-STAT [id number] 13:57:00 Test Item Value Reference Range Comments POTASSIUM (BEAKER) (test fvqj=592) 4.7 meq/L 3.6-5.5 BLOOD GAS, [id number] 13:35:00 Test Item Value Reference Range Comments PH ARTERIAL (BEAKER) (test ijbc=665) 7.51 7.35-7.45 PCO2 ARTERIAL (BEAKER) (test dioh=460) 33 mmHg 35-45 PO2 ARTERIAL (BEAKER) (test fyzo=552) 453 mmHg 80-90 O2 SATURATION ARTERIAL (BEAKER) (test rlqp=340) 99.9 % 96.0-97.0 HCO3 ARTERIAL (BEAKER) (test stum=404) 28 mmol/L 21-29 BASE EXCESS ARTERIAL (BEAKER) (test oilo=481) 2.7 mmol/L -2.0-3.0 PATIENT TEMPERATURE (BEAKER) (test eszz=8558) 29.2 C FIO2 (BEAKER) (test lops=9884) 80.0 % GLUCOSE-STAT [id number] 13:35:00 Test Item Value Reference Range Comments GLUCOSE RANDOM (BEAKER) (test rthd=993) 130 mg/dL 70-110 HGB/HCT (H&H) - STAT [id number] 13:35:00 Test Item Value Reference Range Comments HEMOGLOBIN (BEAKER) (test oblo=052) 6.7 g/dL 12.0-15.0 HEMATOCRIT (BEAKER) (test eyoo=601) 20.0 % 36.0-45.0 SODIUM NA-STAT [id number] 13:35:00 Test Item Value Reference Range Comments SODIUM (BEAKER) (test rwnp=428) 133 meq/L 135-148 POTASSIUM-STAT [id number] 13:34:00 Test Item Value Reference Range Comments POTASSIUM (BEAKER) (test nasz=779) 4.2 meq/L 3.6-5.5 BLOOD GAS, [id number] 13:16:00 Test Item Value Reference Range Comments PH ARTERIAL (BEAKER) (test oroo=297) 7.42 7.35-7.45 PCO2 ARTERIAL (BEAKER) (test tglu=309) 34 mmHg 35-45 PO2 ARTERIAL (BEAKER) (test iulv=214) 375 mmHg 80-90 O2 SATURATION ARTERIAL (BEAKER) (test tntg=008) 99.8 % 96.0-97.0 HCO3 ARTERIAL (BEAKER) (test xzii=627) 23 mmol/L 21-29 BASE EXCESS ARTERIAL (BEAKER) (test ksog=111) -2.5 mmol/L -2.0-3.0 PATIENT TEMPERATURE (BEAKER) (test oawn=3390) 31.5 C FIO2 (BEAKER) (test zuyb=5519) 80.0 % SODIUM NA-STAT [id number] 13:16:00 Test Item Value Reference Range Comments SODIUM (BEAKER) (test dsmh=428) 133 meq/L 135-148 HGB/HCT (H&H) - STAT [id number] 13:16:00 Test Item Value Reference Range Comments HEMOGLOBIN (BEAKER) (test szac=000) 6.3 g/dL 12.0-15.0 HEMATOCRIT (BEAKER) (test qfkc=551) 19.0 % 36.0-45.0 CALCIUM, [id number] 13:15:00 Test Item Value Reference Range Comments CALCIUM IONIZED (BEAKER) (test genq=997) 0.98 mmol/L 1.12-1.27 PH, BLOOD (BEAKER) (test mtly=7667) 7.34 BLOOD GAS, [id number] 13:15:00 Test Item Value Reference Range Comments PH VENOUS (BEAKER) (test nhcd=582) 7.39 7.32-7.42 PCO2 VENOUS (BEAKER) (test xuzw=820) 38 mmHg 41-51 PO2 VENOUS (BEAKER) (test mrrf=936) 43 mmHg 25-40 O2 SATURATION VENOUS (BEAKER) (test epcn=866) 90.0 % 40.0-70.0 HCO3 VENOUS (BEAKER) (test shxr=866) 24 mmol/L 21-29 BASE EXCESS VENOUS (BEAKER) (test mibw=144) -2.1 mmol/L -2.0-3.0 PATIENT TEMPERATURE (BEAKER) (test yvrq=8907) 31.5 C FIO2 (BEAKER) (test zubn=2116) 80.0 % GLUCOSE-STAT [id number] 13:14:00 Test Item Value Reference Range Comments GLUCOSE RANDOM (BEAKER) (test xxwq=580) 92 mg/dL 70-110 POTASSIUM-STAT [id number] 13:14:00 Test Item Value Reference Range Comments POTASSIUM (BEAKER) (test ioii=490) 3.9 meq/L 3.6-5.5 BLOOD GAS, [id number] 10:54:00 Test Item Value Reference Range Comments PH ARTERIAL (BEAKER) (test zvxl=845) 7.41 7.35-7.45 PCO2 ARTERIAL (BEAKER) (test frly=844) 39 mmHg 35-45 PO2 ARTERIAL (BEAKER) (test alha=440) 254 mmHg 80-90 O2 SATURATION ARTERIAL (BEAKER) (test dwgf=391) 99.6 % 96.0-97.0 HCO3 ARTERIAL (BEAKER) (test gele=178) 25 mmol/L 21-29 BASE EXCESS ARTERIAL (BEAKER) (test nefs=573) -0.3 mmol/L -2.0-3.0 PATIENT TEMPERATURE (BEAKER) (test uwkc=9928) 35.4 C FIO2 (BEAKER) (test rtje=7523) 100.0 % HGB/HCT (H&H) - STAT [id number] 10:54:00 Test Item Value Reference Range Comments HEMOGLOBIN (BEAKER) (test tuzb=612) 9.3 g/dL 12.0-15.0 HEMATOCRIT (BEAKER) (test ywrx=646) 27.0 % 36.0-45.0 SODIUM NA-STAT [id number] 10:54:00 Test Item Value Reference Range Comments SODIUM (BEAKER) (test ttce=558) 132 meq/L 135-148 GLUCOSE-STAT [id number] 10:52:00 Test Item Value Reference Range Comments GLUCOSE RANDOM (BEAKER) (test hqoy=132) 94 mg/dL 70-110 POTASSIUM-STAT [id number] 10:52:00 Test Item Value Reference Range Comments POTASSIUM (BEAKER) (test hbvw=128) 4.0 meq/L 3.6-5.5 HEMOGLOBIN [id number] 09:50:00 Test Item Value Reference Range Comments HEMOGLOBIN A1C (BEAKER) (test zihy=711) 10.6 % 4.3-6.1 PLATELET AGGREGATION: FUNCTION [id number] 08:27:00 Test Item Value Reference Range Comments WEAK ADP RESULT(BEAKER) (test 63 % 60-91 xkoe=0428) PLATELET FUNCTION SCREEN 60-100% indicates normal INTERP (BEAKER) (test platelet function xcvn=5257) [id number] (BEAKER) Toshia Post MD (electronic (test htht=4714) signature) PLATELET COUNT AGG (BEAKER) 198 K/CU MM 150-450 (test sbcb=6823) for patients on clopidogrel in past two weeksPOCT-GLUCOSE [id number] 08:11: 00 Test Item Value Reference Range Comments POC-GLUCOSE METER (BEAKER) 116 mg/dL 70-110 TESTED AT [facility] [address] [place] [address] (test mhap=8315) [facility] [address] [id number] 07:10:00 Test Item Value Reference Range Comments PHOSPHORUS (BEAKER) (test dpav=528) 4.5 mg/dL 2.3-4.7 [id number] 07:10:00 Test Item Value Reference Range Comments MAGNESIUM (BEAKER) (test mwuj=399) 2.1 mg/dL 1.6-2.6 BASIC METABOLIC [id number] 07:10:00 Test Item Value Reference Range Comments SODIUM (BEAKER) (test 135 meq/L 136-145 njhl=736) POTASSIUM (BEAKER) (test 4.4 meq/L 3.5-5.1 dgrt=003) CHLORIDE (BEAKER) (test 106 meq/L 98-107 xvtn=269) CO2 (BEAKER) (test 23 meq/L 22-29 jpef=163) BLOOD UREA NITROGEN 40 mg/dL 7-21 (BEAKER) (test dqof=418) CREATININE (BEAKER) (test 1.67 mg/dL 0.57-1.25 uizi=960) GLUCOSE RANDOM (BEAKER) 107 mg/dL 70-105 (test byto=135) CALCIUM (BEAKER) (test 8.3 mg/dL 8.4-10.2 eyty=638) EGFR (BEAKER) (test 31 mL/min/1.73 sq m ESTIMATED GFR IS NOT eimo=8394) ACCURATE CREATININE CLEARANCE IN PREDICTING GLOMERULAR FILTRATION RATE. ESTIMATED GFR IS NOT APPLICABLE FOR DIALYSIS PATIENTS. B-TYPE NATRIURETIC FACTOR (BNP)2017-05-20 06:56:00 Test Item Value Reference Range Comments B-TYPE NATRIURETIC PEPTIDE (BEAKER) (test 552 pg/mL 0-100 ceuf=308) CBC W/PLT COUNT & AUTO [id number] 06:46:00 Test Item Value Reference Range Comments WHITE BLOOD CELL COUNT (BEAKER) (test gdun=580) 6.2 K/ L 3.5-10.5 RED BLOOD CELL COUNT (BEAKER) (test gvhw=306) 3.56 M/ L 3.93-5.22 HEMOGLOBIN (BEAKER) (test abah=497) 9.1 GM/DL 11.2-15.7 HEMATOCRIT (BEAKER) (test tupe=025) 29.5 % 34.1-44.9 MEAN CORPUSCULAR VOLUME (BEAKER) (test jylc=175) 82.9 fL 79.4-94.8 MEAN CORPUSCULAR HEMOGLOBIN (BEAKER) (test 25.6 pg 25.6-32.2 edff=659) MEAN CORPUSCULAR HEMOGLOBIN CONC (BEAKER) (test 30.8 GM/DL 32.2-35.5 ofqc=664) RED CELL DISTRIBUTION WIDTH (BEAKER) (test 14.4 % 11.7-14.4 whbl=110) PLATELET COUNT (BEAKER) (test tuup=721) 222 K/CU MM 150-450 MEAN PLATELET VOLUME (BEAKER) (test qily=925) 10.5 fL 9.4-12.3 NUCLEATED RED BLOOD CELLS (BEAKER) (test 0 /100 WBC 0-0 fvzv=819) NEUTROPHILS RELATIVE PERCENT (BEAKER) (test 47 % pjze=561) LYMPHOCYTES RELATIVE PERCENT (BEAKER) (test 39 % xnlo=212) MONOCYTES RELATIVE PERCENT (BEAKER) (test 8 % rook=747) EOSINOPHILS RELATIVE PERCENT (BEAKER) (test 5 % sbak=164) BASOPHILS RELATIVE PERCENT (BEAKER) (test 1 % iper=968) NEUTROPHILS ABSOLUTE COUNT (BEAKER) (test 2.90 K/ L 1.56-6.13 dnfd=688) LYMPHOCYTES ABSOLUTE COUNT (BEAKER) (test 2.37 K/ L 1.18-3.74 igex=167) MONOCYTES ABSOLUTE COUNT (BEAKER) (test 0.49 K/ L 0.24-0.36 yyng=495) EOSINOPHILS ABSOLUTE COUNT (BEAKER) (test 0.30 K/ L 0.04-0.36 jhst=395) BASOPHILS ABSOLUTE COUNT (BEAKER) (test 0.08 K/ L 0.01-0.08 kvit=499) IMMATURE GRANULOCYTES-RELATIVE PERCENT (BEAKER) 0 % 0-1 (test hgor=7998) CALCIUM, [id number] 06:40:00 Test Item Value Reference Range Comments CALCIUM IONIZED (BEAKER) (test iyhk=889) 1.06 mmol/L 1.12-1.27 PH, BLOOD (BEAKER) (test plss=8176) 7.39 POCT-GLUCOSE [id number] 23:22:00 Test Item Value Reference Range Comments POC-GLUCOSE METER (BEAKER) 165 mg/dL 70-110 TESTED AT [facility] [address] (test tdkz=3976) [facility] [address] URINE PROTEIN ELECTROPHORESIS, [id number] 18:02:00 Test Item Value Reference Range Comments PROTEIN, URINE (BEAKER) (test 305 mg/dL 0-14 sqxf=5582) ALBUMIN URINE ELP (BEAKER) 70.9 % (test ccjz=2849) GAMMA GLOBULIN URINE (BEAKER) 29.1 % (test cdyy=2754) UPEP, ID-438 (BEAKER) (test No monoclonal bands detected. danp=9743) SPNE-XKAJLYDSVSV-911 (BEAKER) Rocio Galindo MD (test wbhw=0124) (electronic signature) PROTEIN ELECTROPHORESIS, [id number] 17:57:00 Test Item Value Reference Range Comments ALBUMIN FRACTION (BEAKER) 2.5 g/dL 3.5-5.5 (test wpye=461) ALPHA 1 FRACTION (BEAKER) 0.3 g/dL 0.2-0.4 (test cknr=644) ALPHA 2 FRACTION (BEAKER) 0.9 g/dL 0.5-0.9 (test goop=136) BETA FRACTION (BEAKER) (test 0.8 g/dL 0.6-1.1 rxyi=247) GAMMA GLOBULIN FRACTION 1.0 g/dL 0.7-1.7 (BEAKER) (test wwlm=889) INTERPRETATION-119 (BEAKER) Decreased albumin with (test sema=1742) concurrent relative increases in all globulin fractions. No monoclonal bands detected. [id number]-JAIXEJCFVMC-226 (BEAKER) Rocio Galindo MD (test uqtm=7329) (electronic signature) PROTEIN TOTAL SERUM, SPEP 5.5 gm/dL 6.0-8.3 (BEAKER) (test kvxo=2695) POCT-GLUCOSE [id number] 17:15:00 Test Item Value Reference Range Comments POC-GLUCOSE METER (BEAKER) 209 mg/dL 70-110 TESTED AT [facility] [address] [facility] (test ltcm=9962) [facility] [address] BLOOD GAS, [id number] 15:54:00 Test Item Value Reference Range Comments PH ARTERIAL (BEAKER) (test kqng=731) 7.45 7.35-7.45 PCO2 ARTERIAL (BEAKER) (test lopv=326) 38 mmHg 35-45 PO2 ARTERIAL (BEAKER) (test qwqj=438) 69 mmHg 80-90 O2 SATURATION ARTERIAL (BEAKER) (test nlnl=559) 94.5 % 96.0-97.0 HCO3 ARTERIAL (BEAKER) (test fgew=888) 25 mmol/L 21-29 BASE EXCESS ARTERIAL (BEAKER) (test zgis=390) 1.3 mmol/L -2.0-3.0 PATIENT TEMPERATURE (BEAKER) (test upzs=0366) 37.0 C FIO2 (BEAKER) (test szao=5756) 36.0 % RAD, CHEST, 1 VIEW, NON [id number] 14:07:00Reason for exam:->SOB, hypoxemiaShould this be performed [...] Cespedes MDReport Verified Date/Time: 2017 14:07:07 Reading Location:[facility] [id number] Consult Reading Room POCT- GLUCOSE [id number] 11:26:00 Test Item Value Reference Range Comments POC-GLUCOSE METER (BEAKER) 262 mg/dL 70-110 TESTED AT [address] (test bhxr=2606) [facility] [address] POCT-GLUCOSE [id number] 07:37:00 Test Item Value Reference Range Comments POC-GLUCOSE METER (BEAKER) 170 mg/dL 70-110 TESTED AT [address] (test serx=0948) [facility] [address] CALCIUM, [id number] 06:06:00 Test Item Value Reference Range Comments CALCIUM IONIZED (BEAKER) (test ubzs=048) 1.05 mmol/L 1.12-1.27 PH, BLOOD (BEAKER) (test ifvg=5875) 7.41 [id number] 05:38:00 Test Item Value Reference Range Comments PHOSPHORUS (BEAKER) (test rvbm=313) 3.9 mg/dL 2.3-4.7 [id number] 05:38:00 Test Item Value Reference Range Comments MAGNESIUM (BEAKER) (test bcrm=476) 2.2 mg/dL 1.6-2.6 BASIC METABOLIC [id number] 05:38:00 Test Item Value Reference Range Comments SODIUM (BEAKER) (test 135 meq/L 136-145 lanz=445) POTASSIUM (BEAKER) (test 4.5 meq/L 3.5-5.1 pnzp=268) CHLORIDE (BEAKER) (test 105 meq/L 98-107 rwzt=679) CO2 (BEAKER) (test 24 meq/L 22-29 dhjw=135) BLOOD UREA NITROGEN 41 mg/dL 7-21 (BEAKER) (test vqjd=339) CREATININE (BEAKER) (test 1.74 mg/dL 0.57-1.25 krxs=848) GLUCOSE RANDOM (BEAKER) 174 mg/dL 70-105 (test zgcs=821) CALCIUM (BEAKER) (test 8.4 mg/dL 8.4-10.2 gwho=124) EGFR (BEAKER) (test 30 mL/min/1.73 sq m ESTIMATED GFR IS NOT ubif=7080) ACCURATE CREATININE CLEARANCE IN PREDICTING GLOMERULAR FILTRATION RATE. ESTIMATED GFR IS NOT APPLICABLE FOR DIALYSIS PATIENTS. CBC W/PLT COUNT & AUTO [id number] 05:09:00 Test Item Value Reference Range Comments WHITE BLOOD CELL COUNT (BEAKER) (test ptwd=859) 8.5 K/ L 3.5-10.5 RED BLOOD CELL COUNT (BEAKER) (test fmfx=390) 3.54 M/ L 3.93-5.22 HEMOGLOBIN (BEAKER) (test wwrh=701) 9.1 GM/DL 11.2-15.7 HEMATOCRIT (BEAKER) (test rfrc=708) 29.1 % 34.1-44.9 MEAN CORPUSCULAR VOLUME (BEAKER) (test eiwx=163) 82.2 fL 79.4-94.8 MEAN CORPUSCULAR HEMOGLOBIN (BEAKER) (test 25.7 pg 25.6-32.2 zdkc=555) MEAN CORPUSCULAR HEMOGLOBIN CONC (BEAKER) (test 31.3 GM/DL 32.2-35.5 qlxp=449) RED CELL DISTRIBUTION WIDTH (BEAKER) (test 14.5 % 11.7-14.4 vdvb=514) PLATELET COUNT (BEAKER) (test ryfp=878) 201 K/CU MM 150-450 MEAN PLATELET VOLUME (BEAKER) (test glkv=251) 10.7 fL 9.4-12.3 NUCLEATED RED BLOOD CELLS (BEAKER) (test 0 /100 WBC 0-0 jxfd=804) NEUTROPHILS RELATIVE PERCENT (BEAKER) (test 56 % ekjd=349) LYMPHOCYTES RELATIVE PERCENT (BEAKER) (test 32 % poge=579) MONOCYTES RELATIVE PERCENT (BEAKER) (test 7 % qopx=417) EOSINOPHILS RELATIVE PERCENT (BEAKER) (test 4 % bjgp=335) BASOPHILS RELATIVE PERCENT (BEAKER) (test 1 % rauk=382) NEUTROPHILS ABSOLUTE COUNT (BEAKER) (test 4.80 K/ L 1.56-6.13 mwmk=687) LYMPHOCYTES ABSOLUTE COUNT (BEAKER) (test 2.73 K/ L 1.18-3.74 zcpe=578) MONOCYTES ABSOLUTE COUNT (BEAKER) (test 0.62 K/ L 0.24-0.36 sjmn=569) EOSINOPHILS ABSOLUTE COUNT (BEAKER) (test 0.30 K/ L 0.04-0.36 wlym=190) BASOPHILS ABSOLUTE COUNT (BEAKER) (test 0.06 K/ L 0.01-0.08 neft=920) IMMATURE GRANULOCYTES-RELATIVE PERCENT (BEAKER) 0 % 0-1 (test fmzw=8484) POCT-GLUCOSE [id number] 22:08:00 Test Item Value Reference Range Comments POC-GLUCOSE METER (BEAKER) 263 mg/dL 70-110 TESTED AT [address] (test pzos=8001) [place] [id number] POCT-GLUCOSE [id number] 17:20:00 Test Item Value Reference Range Comments POC-GLUCOSE METER (BEAKER) 233 mg/dL 70-110 TESTED AT [address] (test zyyb=4744) [place] [id number] POCT-GLUCOSE [id number] 08:28:00 Test Item Value Reference Range Comments POC-GLUCOSE METER (BEAKER) 154 mg/dL 70-110 TESTED AT [address] (test rxwr=2623) [facility] [address] BASIC METABOLIC [id number] 06:41:00 Test Item Value Reference Range Comments SODIUM (BEAKER) (test 135 meq/L 136-145 uqkq=871) POTASSIUM (BEAKER) (test 4.6 meq/L 3.5-5.1 mqfe=389) CHLORIDE (BEAKER) (test 104 meq/L 98-107 jfrt=690) CO2 (BEAKER) (test 23 meq/L 22-29 zguv=489) BLOOD UREA NITROGEN 39 mg/dL 7-21 (BEAKER) (test elhm=224) CREATININE (BEAKER) (test 1.77 mg/dL 0.57-1.25 lydp=588) GLUCOSE RANDOM (BEAKER) 173 mg/dL 70-105 (test gdbq=374) CALCIUM (BEAKER) (test 8.6 mg/dL 8.4-10.2 qnga=594) EGFR (BEAKER) (test 29 mL/min/1.73 sq m ESTIMATED GFR IS NOT mkgy=0716) ACCURATE CREATININE CLEARANCE IN PREDICTING GLOMERULAR FILTRATION RATE. ESTIMATED GFR IS NOT APPLICABLE FOR DIALYSIS PATIENTS. [id number] 06:35:00 Test Item Value Reference Range Comments PHOSPHORUS (BEAKER) (test znxb=993) 4.1 mg/dL 2.3-4.7 [id number] 06:35:00 Test Item Value Reference Range Comments MAGNESIUM (BEAKER) (test zvee=772) 2.1 mg/dL 1.6-2.6 CALCIUM, [id number] 06:22:00 Test Item Value Reference Range Comments CALCIUM IONIZED (BEAKER) (test uphq=071) 1.10 mmol/L 1.12-1.27 PH, BLOOD (BEAKER) (test haod=3757) 7.38 CBC W/PLT COUNT & AUTO [id number] 06:04:00 Test Item Value Reference Range Comments WHITE BLOOD CELL COUNT (BEAKER) (test pdgw=646) 9.3 K/ L 3.5-10.5 RED BLOOD CELL COUNT (BEAKER) (test lycv=544) 4.15 M/ L 3.93-5.22 HEMOGLOBIN (BEAKER) (test xhcj=784) 10.6 GM/DL 11.2-15.7 HEMATOCRIT (BEAKER) (test gsec=000) 34.2 % 34.1-44.9 MEAN CORPUSCULAR VOLUME (BEAKER) (test diqb=878) 82.4 fL 79.4-94.8 MEAN CORPUSCULAR HEMOGLOBIN (BEAKER) (test 25.5 pg 25.6-32.2 vyts=604) MEAN CORPUSCULAR HEMOGLOBIN CONC (BEAKER) (test 31.0 GM/DL 32.2-35.5 qlqi=769) RED CELL DISTRIBUTION WIDTH (BEAKER) (test 14.6 % 11.7-14.4 ueiu=449) PLATELET COUNT (BEAKER) (test yyek=618) 183 K/CU MM 150-450 MEAN PLATELET VOLUME (BEAKER) (test hxdx=903) 11.0 fL 9.4-12.3 NUCLEATED RED BLOOD CELLS (BEAKER) (test 0 /100 WBC 0-0 ivbi=208) NEUTROPHILS RELATIVE PERCENT (BEAKER) (test 66 % rkwq=854) LYMPHOCYTES RELATIVE PERCENT (BEAKER) (test 24 % hfzt=125) MONOCYTES RELATIVE PERCENT (BEAKER) (test 7 % paem=575) EOSINOPHILS RELATIVE PERCENT (BEAKER) (test 3 % rjdu=778) BASOPHILS RELATIVE PERCENT (BEAKER) (test 1 % scra=531) NEUTROPHILS ABSOLUTE COUNT (BEAKER) (test 6.15 K/ L 1.56-6.13 foqz=145) LYMPHOCYTES ABSOLUTE COUNT (BEAKER) (test 2.20 K/ L 1.18-3.74 skyz=773) MONOCYTES ABSOLUTE COUNT (BEAKER) (test 0.62 K/ L 0.24-0.36 gpdn=955) EOSINOPHILS ABSOLUTE COUNT (BEAKER) (test 0.24 K/ L 0.04-0.36 dowo=098) BASOPHILS ABSOLUTE COUNT (BEAKER) (test 0.06 K/ L 0.01-0.08 zmao=275) IMMATURE GRANULOCYTES-RELATIVE PERCENT (BEAKER) 0 % 0-1 (test quaa=2049) POCT-GLUCOSE [id number] 03:44:00 Test Item Value Reference Range Comments POC-GLUCOSE METER (BEAKER) 220 mg/dL 70-110 TESTED AT [address] (test rclu=2242) [place] [address] POCT-GLUCOSE [id number] 18:27:00 Test Item Value Reference Range Comments POC-GLUCOSE METER (BEAKER) 256 mg/dL 70-110 TESTED AT [address] (test pyfk=5387) [place] [address] POCT-GLUCOSE [id number] 15:45:00 Test Item Value Reference Range Comments POC-GLUCOSE METER (BEAKER) 278 mg/dL 70-110 TESTED AT [address] (test mlbm=0091) [place] [address] POCT-GLUCOSE [id number] 13:22:00 Test Item Value Reference Range Comments POC-GLUCOSE METER (BEAKER) 278 mg/dL 70-110 TESTED AT [address] (test gzda=2041) [place] [address] PLATELET AGGREGATION: FUNCTION [id number] 13:18:00 Test Item Value Reference Range Comments WEAK ADP RESULT(BEAKER) (test 66 % 60-91 pnho=2440) PLATELET FUNCTION SCREEN 60-100% indicates normal INTERP (BEAKER) (test platelet function uojs=9075) SNRH-VJEVSCGCPCL-2318 (BEAKER) Rigoberto Duenas MD (electronic (test dyog=8773) signature) PLATELET COUNT AGG (BEAKER) 204 K/CU MM 150-450 (test prnb=4200) POCT-GLUCOSE [id number] 08:27:00 Test Item Value Reference Range Comments POC-GLUCOSE METER (BEAKER) 189 mg/dL 70-110 TESTED AT [facility] [address] [facility] (test tbmy=5166) [place] [address] CALCIUM, [id number] 06:12:00 Test Item Value Reference Range Comments CALCIUM IONIZED (BEAKER) (test jqnj=884) 1.07 mmol/L 1.12-1.27 PH, BLOOD (BEAKER) (test lrqu=1072) 7.36 [id number] 05:43:00 Test Item Value Reference Range Comments PHOSPHORUS (BEAKER) (test ckno=221) 3.6 mg/dL 2.3-4.7 [id number] 05:43:00 Test Item Value Reference Range Comments MAGNESIUM (BEAKER) (test sdeb=591) 2.1 mg/dL 1.6-2.6 BASIC METABOLIC [id number] 05:43:00 Test Item Value Reference Range Comments SODIUM (BEAKER) (test 137 meq/L 136-145 obaz=536) POTASSIUM (BEAKER) (test 4.7 meq/L 3.5-5.1 svhb=987) CHLORIDE (BEAKER) (test 107 meq/L 98-107 syhv=643) CO2 (BEAKER) (test 24 meq/L 22-29 efmt=743) BLOOD UREA NITROGEN 38 mg/dL 7-21 (BEAKER) (test fypk=652) CREATININE (BEAKER) (test 1.72 mg/dL 0.57-1.25 mpfu=995) GLUCOSE RANDOM (BEAKER) 198 mg/dL 70-105 (test grhg=921) CALCIUM (BEAKER) (test 8.3 mg/dL 8.4-10.2 imss=410) EGFR (BEAKER) (test 30 mL/min/1.73 sq m ESTIMATED GFR IS NOT pzbt=0268) ACCURATE CREATININE CLEARANCE IN PREDICTING GLOMERULAR FILTRATION RATE. ESTIMATED GFR IS NOT APPLICABLE FOR DIALYSIS PATIENTS. CBC W/PLT COUNT & AUTO [id number] 05:05:00 Test Item Value Reference Range Comments WHITE BLOOD CELL COUNT (BEAKER) (test hjlj=172) 8.6 K/ L 3.5-10.5 RED BLOOD CELL COUNT (BEAKER) (test hjjb=896) 4.20 M/ L 3.93-5.22 HEMOGLOBIN (BEAKER) (test mxjm=749) 10.7 GM/DL 11.2-15.7 HEMATOCRIT (BEAKER) (test njih=122) 34.7 % 34.1-44.9 MEAN CORPUSCULAR VOLUME (BEAKER) (test joor=406) 82.6 fL 79.4-94.8 MEAN CORPUSCULAR HEMOGLOBIN (BEAKER) (test 25.5 pg 25.6-32.2 gwqx=647) MEAN CORPUSCULAR HEMOGLOBIN CONC (BEAKER) (test 30.8 GM/DL 32.2-35.5 upyo=898) RED CELL DISTRIBUTION WIDTH (BEAKER) (test 14.7 % 11.7-14.4 obrm=684) PLATELET COUNT (BEAKER) (test mmwr=526) 198 K/CU MM 150-450 MEAN PLATELET VOLUME (BEAKER) (test txsi=994) 11.1 fL 9.4-12.3 NUCLEATED RED BLOOD CELLS (BEAKER) (test 0 /100 WBC 0-0 ogpb=141) NEUTROPHILS RELATIVE PERCENT (BEAKER) (test 63 % ibap=198) LYMPHOCYTES RELATIVE PERCENT (BEAKER) (test 28 % fyqi=489) MONOCYTES RELATIVE PERCENT (BEAKER) (test 6 % pfzd=133) EOSINOPHILS RELATIVE PERCENT (BEAKER) (test 3 % rfzv=465) BASOPHILS RELATIVE PERCENT (BEAKER) (test 1 % vtum=671) NEUTROPHILS ABSOLUTE COUNT (BEAKER) (test 5.41 K/ L 1.56-6.13 vpoj=285) LYMPHOCYTES ABSOLUTE COUNT (BEAKER) (test 2.37 K/ L 1.18-3.74 ukvy=229) MONOCYTES ABSOLUTE COUNT (BEAKER) (test 0.50 K/ L 0.24-0.36 bqqr=608) EOSINOPHILS ABSOLUTE COUNT (BEAKER) (test 0.27 K/ L 0.04-0.36 wlwe=809) BASOPHILS ABSOLUTE COUNT (BEAKER) (test 0.06 K/ L 0.01-0.08 esah=094) IMMATURE GRANULOCYTES-RELATIVE PERCENT (BEAKER) 0 % 0-1 (test xmsm=0546) POCT-GLUCOSE [id number] 21:32:00 Test Item Value Reference Range Comments POC-GLUCOSE METER (BEAKER) 176 mg/dL 70-110 TESTED AT [address] (test owyn=6780) [place] [address] POCT-GLUCOSE [id number] 20:27:00 Test Item Value Reference Range Comments POC-GLUCOSE METER (BEAKER) 161 mg/dL 70-110 TESTED AT [address] (test lkve=5922) [place] [address] POCT-GLUCOSE [id number] 18:23:00 Test Item Value Reference Range Comments POC-GLUCOSE METER (BEAKER) 185 mg/dL 70-110 TESTED AT [address] (test pltt=4462) [place] [address] POCT-GLUCOSE [id number] 13:26:00 Test Item Value Reference Range Comments POC-GLUCOSE METER (BEAKER) 282 mg/dL 70-110 TESTED AT [address] (test wyvn=7931) [place] [address] URINE [id number] 10:12:00 Test Item Value Reference Range Comments CULTURE (BEAKER) (test azpj=0747) >100,000 col/mL skin todd POCT-GLUCOSE [id number] 09:01:00 Test Item Value Reference Range Comments POC-GLUCOSE METER (BEAKER) 268 mg/dL 70-110 TESTED AT [address] (test miud=1239) [place] [address] CALCIUM, [id number] 05:39:00 Test Item Value Reference Range Comments CALCIUM IONIZED (BEAKER) (test abiz=978) 0.84 mmol/L 1.12-1.27 PH, BLOOD (BEAKER) (test pinr=0945) 7.35 BASIC METABOLIC [id number] 05:07:00 Test Item Value Reference Range Comments SODIUM (BEAKER) (test 135 meq/L 136-145 igde=101) POTASSIUM (BEAKER) (test 4.9 meq/L 3.5-5.1 lphf=839) CHLORIDE (BEAKER) (test 106 meq/L 98-107 skmr=860) CO2 (BEAKER) (test 22 meq/L 22-29 ywgr=989) BLOOD UREA NITROGEN 43 mg/dL 7-21 (BEAKER) (test gztx=110) CREATININE (BEAKER) (test 2.00 mg/dL 0.57-1.25 znaa=257) GLUCOSE RANDOM (BEAKER) 161 mg/dL 70-105 (test zskp=994) CALCIUM (BEAKER) (test 8.2 mg/dL 8.4-10.2 ldle=201) EGFR (BEAKER) (test 25 mL/min/1.73 sq m ESTIMATED GFR IS NOT sehf=9647) ACCURATE CREATININE CLEARANCE IN PREDICTING GLOMERULAR FILTRATION RATE. ESTIMATED GFR IS NOT APPLICABLE FOR DIALYSIS PATIENTS. [id number] 05:06:00 Test Item Value Reference Range Comments PHOSPHORUS (BEAKER) (test hcgg=813) 3.2 mg/dL 2.3-4.7 [id number] 05:06:00 Test Item Value Reference Range Comments MAGNESIUM (BEAKER) (test dpdn=520) 2.3 mg/dL 1.6-2.6 CBC W/PLT COUNT & AUTO [id number] 04:42:00 Test Item Value Reference Range Comments WHITE BLOOD CELL COUNT (BEAKER) (test ojmh=412) 9.5 K/ L 3.5-10.5 RED BLOOD CELL COUNT (BEAKER) (test cjlu=070) 4.17 M/ L 3.93-5.22 HEMOGLOBIN (BEAKER) (test qqcw=614) 10.5 GM/DL 11.2-15.7 HEMATOCRIT (BEAKER) (test oekt=402) 34.2 % 34.1-44.9 MEAN CORPUSCULAR VOLUME (BEAKER) (test qwwt=998) 82.0 fL 79.4-94.8 MEAN CORPUSCULAR HEMOGLOBIN (BEAKER) (test 25.2 pg 25.6-32.2 cfsz=670) MEAN CORPUSCULAR HEMOGLOBIN CONC (BEAKER) (test 30.7 GM/DL 32.2-35.5 wdtf=005) RED CELL DISTRIBUTION WIDTH (BEAKER) (test 14.6 % 11.7-14.4 stwa=869) PLATELET COUNT (BEAKER) (test thtk=662) 177 K/CU MM 150-450 MEAN PLATELET VOLUME (BEAKER) (test tijk=784) 11.1 fL 9.4-12.3 NUCLEATED RED BLOOD CELLS (BEAKER) (test 0 /100 WBC 0-0 jqka=687) NEUTROPHILS RELATIVE PERCENT (BEAKER) (test 55 % lzbc=175) LYMPHOCYTES RELATIVE PERCENT (BEAKER) (test 36 % zjnj=637) MONOCYTES RELATIVE PERCENT (BEAKER) (test 6 % frvr=909) EOSINOPHILS RELATIVE PERCENT (BEAKER) (test 2 % jotw=268) BASOPHILS RELATIVE PERCENT (BEAKER) (test 1 % myxd=282) NEUTROPHILS ABSOLUTE COUNT (BEAKER) (test 5.20 K/ L 1.56-6.13 clxg=093) LYMPHOCYTES ABSOLUTE COUNT (BEAKER) (test 3.37 K/ L 1.18-3.74 rbls=318) MONOCYTES ABSOLUTE COUNT (BEAKER) (test 0.59 K/ L 0.24-0.36 kvnc=557) EOSINOPHILS ABSOLUTE COUNT (BEAKER) (test 0.21 K/ L 0.04-0.36 dymq=848) BASOPHILS ABSOLUTE COUNT (BEAKER) (test 0.07 K/ L 0.01-0.08 qidx=450) IMMATURE GRANULOCYTES-RELATIVE PERCENT (BEAKER) 0 % 0-1 (test ptmd=5885) RHEUMATOID FACTOR AB, REFLEX TO [id number] 01:52:00 Test Item Value Reference Range Comments RHEUMATOID FACTOR (BEAKER) (test rypk=760) Negative POCT-GLUCOSE [id number] 21:57:00 Test Item Value Reference Range Comments POC-GLUCOSE METER (BEAKER) 105 mg/dL 70-110 TESTED AT [facility] [address] [facility] (test ykxp=9496) [facility] [address] POCT-GLUCOSE [id number] 18:11:00 Test Item Value Reference Range Comments POC-GLUCOSE METER (BEAKER) 312 mg/dL 70-110 Notified GUILHERME PIERRE/TESTED AT [facility] (test rftq=1753) [address] [place] [address] PET, CARDIAC PERFUSION MULTIPLE STUDIES, REST AND [id number] 16:28: 00Reason for exam:->pvcs, known cadFINAL REPORT PROCEDURE: Rest/Stress MYOCARDIAL PERFUSION PET with regadenoson\XA9\ CPT CODE: 18625 INDICATION: Defined extent and severity of known [...] 23% . LVEF at stress is 36%. [employer] Equipment Tester CT images revealed a right pleural effusion [...] pleural and pericardial effusions. 7. No previous [facility] study for comparison. NONINVASIVE RISK STRATIFICATION: The above findings are considered high risk (>3% annual mortality rate) based on the following criteria: - Severe resting left ventricular dysfunction (LVEF 35%)- Stress-induced large perfusion defect ( particularly if anterior)(JACC. 2012;59(9):857-81.) Signed: Last Lopez MDReport Verified Date/Time: 05/15/2017 16:28:12 Reading Location: [address] [facility] Med ReadingRoom RAD, CHEST, 1 VIEW, NON [id number] 15:56:00Reason for exam:->SOBShould this be performed at the bedside?->YesFINAL REPORT Comparison: 05/14/2017 TECHNIQUE: Single view of the chest FINDINGS: There is a small right pleural effusion with nonspecific airspace disease. This is unchanged. Left lung is grossly clear. Cardiac silhouette is enlarged. IMPRESSION: 1. No acute cardiopulmonary disease. Signed : Sixto Monk MDReport Verified Date/Time: 05/15/2017 15:56:39 Reading Location : [facility] Radiology Reading Room POCT-GLUCOSE [id number] 12:54:00 Test Item Value Reference Range Comments POC-GLUCOSE METER (BEAKER) 308 mg/dL 70-110 Notified GUILHERME PIERRE/TESTED AT [facility] (test dvpv=2340) [address] [facility] [address] U/S, RENAL WITH [id number] 11:04:00Reason for exam:->tracy, htnShould this be performed [...] Verified Date/Time: 05/15/2017 11:04:01 Reading Location : [place] [id number] Ultrasound Reading Room ANA TITER AND [id number] 10:57:00 Test Item Value Reference Range Comments ROGER TITER (BEAKER) (test xqzv=6112) :160 ROGER PATTERN (BEAKER) (test jkwf=1755) Speckled ANTI-NUCLEAR ANTIBODY (ROGER)2017-05-15 10:56:00 Test Item Value Reference Range Comments ANTI-NUCLEAR ANTIBODY (ROGER) (BEAKER) (test Positive Negative elio=117) CALCIUM, [id number] 06:00:00 Test Item Value Reference Range Comments CALCIUM IONIZED (BEAKER) (test zdwy=087) 1.07 mmol/L 1.12-1.27 PH, BLOOD (BEAKER) (test nkfl=7034) 7.28 HEPATITIS PANEL, [id number] 05:01:00 Test Item Value Reference Range Comments HEPATITIS A IGM ANTIBODY (BEAKER) (test Nonreactive Nonreactive kfvw=885) HEPATITIS B CORE IGM ANTIBODY (BEAKER) (test Nonreactive Nonreactive bhvt=751) HEPATITIS C ANTIBODY (BEAKER) (test oqai=500) Nonreactive Nonreactive HEPATITIS B SURFACE ANTIGEN (2) (BEAKER) (test Nonreactive Nonreactive xvlj=0117) BASIC METABOLIC [id number] 04:48:00 Test Item Value Reference Range Comments SODIUM (BEAKER) (test 135 meq/L 136-145 oupl=446) POTASSIUM (BEAKER) (test 5.2 meq/L 3.5-5.1 tpjq=023) CHLORIDE (BEAKER) (test 104 meq/L 98-107 hmxo=847) CO2 (BEAKER) (test 22 meq/L 22-29 bwqc=435) BLOOD UREA NITROGEN 46 mg/dL 7-21 (BEAKER) (test qsgc=062) CREATININE (BEAKER) (test 2.64 mg/dL 0.57-1.25 mkbc=522) GLUCOSE RANDOM (BEAKER) 176 mg/dL 70-105 (test fbod=650) CALCIUM (BEAKER) (test 8.2 mg/dL 8.4-10.2 kiym=915) EGFR (BEAKER) (test 18 mL/min/1.73 sq m ESTIMATED GFR IS NOT ujpz=2772) ACCURATE CREATININE CLEARANCE IN PREDICTING GLOMERULAR FILTRATION RATE. ESTIMATED GFR IS NOT APPLICABLE FOR DIALYSIS PATIENTS. URIC [id number] 04:41:00 Test Item Value Reference Range Comments URIC ACID (BEAKER) (test fotb=693) 10.3 mg/dL 2.6-7.2 [id number] 04:41:00 Test Item Value Reference Range Comments MAGNESIUM (BEAKER) (test btse=572) 2.0 mg/dL 1.6-2.6 [id number] 04:41:00 Test Item Value Reference Range Comments PHOSPHORUS (BEAKER) (test vesm=440) 4.2 mg/dL 2.3-4.7 COMPLEMENT COMPONENT [id number] 04:38:00 Test Item Value Reference Range Comments C4 COMPLEMENT (BEAKER) (test wxqe=133) 28 mg/dL 15-57 COMPLEMENT COMPONENT [id number] 04:38:00 Test Item Value Reference Range Comments C3 COMPLEMENT (BEAKER) (test zkjb=124) 103 mg/dL 82-193 CBC W/PLT COUNT & AUTO [id number] 04:22:00 Test Item Value Reference Range Comments WHITE BLOOD CELL COUNT (BEAKER) (test eina=565) 11.0 K/ L 3.5-10.5 RED BLOOD CELL COUNT (BEAKER) (test ujox=625) 4.25 M/ L 3.93-5.22 HEMOGLOBIN (BEAKER) (test just=161) 10.6 GM/DL 11.2-15.7 HEMATOCRIT (BEAKER) (test eeon=235) 35.3 % 34.1-44.9 MEAN CORPUSCULAR VOLUME (BEAKER) (test gtto=067) 83.1 fL 79.4-94.8 MEAN CORPUSCULAR HEMOGLOBIN (BEAKER) (test 24.9 pg 25.6-32.2 crng=803) MEAN CORPUSCULAR HEMOGLOBIN CONC (BEAKER) (test 30.0 GM/DL 32.2-35.5 zimi=092) RED CELL DISTRIBUTION WIDTH (BEAKER) (test 14.5 % 11.7-14.4 fope=720) PLATELET COUNT (BEAKER) (test anfp=481) 185 K/CU MM 150-450 MEAN PLATELET VOLUME (BEAKER) (test hdvv=133) 10.9 fL 9.4-12.3 NUCLEATED RED BLOOD CELLS (BEAKER) (test 0 /100 WBC 0-0 wyar=581) NEUTROPHILS RELATIVE PERCENT (BEAKER) (test 61 % hkfe=015) LYMPHOCYTES RELATIVE PERCENT (BEAKER) (test 31 % fyie=788) MONOCYTES RELATIVE PERCENT (BEAKER) (test 5 % ngoe=687) EOSINOPHILS RELATIVE PERCENT (BEAKER) (test 2 % ezsc=617) BASOPHILS RELATIVE PERCENT (BEAKER) (test 1 % pfws=308) NEUTROPHILS ABSOLUTE COUNT (BEAKER) (test 6.72 K/ L 1.56-6.13 jrun=042) LYMPHOCYTES ABSOLUTE COUNT (BEAKER) (test 3.35 K/ L 1.18-3.74 bshe=657) MONOCYTES ABSOLUTE COUNT (BEAKER) (test 0.59 K/ L 0.24-0.36 ieht=732) EOSINOPHILS ABSOLUTE COUNT (BEAKER) (test 0.21 K/ L 0.04-0.36 ndcq=000) BASOPHILS ABSOLUTE COUNT (BEAKER) (test 0.06 K/ L 0.01-0.08 ajik=146) IMMATURE GRANULOCYTES-RELATIVE PERCENT (BEAKER) 0 % 0-1 (test cqli=8704) POCT-GLUCOSE [id number] 21:46:00 Test Item Value Reference Range Comments POC-GLUCOSE METER (BEAKER) 173 mg/dL 70-110 TESTED AT [address] (test wzdj=1011) [place] [address] POCT-GLUCOSE [id number] 21:46:00 Test Item Value Reference Range Comments POC-GLUCOSE METER (BEAKER) 154 mg/dL 70-110 TESTED AT [address] (test krmv=8333) [place] [address] POCT-GLUCOSE [id number] 18:17:00 Test Item Value Reference Range Comments POC-GLUCOSE METER (BEAKER) 175 mg/dL 70-110 TESTED AT [address] (test najm=1975) [place] [address] RAD, CHEST, 1 VIEW, NON [id number] 14:56:00Reason for exam:->SOBShould this be performed at the bedside?->YesFINAL REPORT INDICATION: SOB COMPARISON: May 13, 2017 TECHNIQUE: Chest radiograph, single view, portable technique. FINDINGS / IMPRESSION: Enlarged heart shadow, small rightpleural effusion, and pulmonary venous congestion, again demonstrated. No pneumothorax or consolidation. Osseous structures unremarkable. Signed: Satnam Jean MDReport Verified Date/Time: 05/14/2017 14:56:58 Reading Location: [facility] Mammo Reading Room POCT-GLUCOSE [id number] 12:18:00 Test Item Value Reference Range Comments POC-GLUCOSE METER (BEAKER) 313 mg/dL 70-110 TESTED AT [address] (test hoqz=4710) [place] [address] HIV-1 ANTIGEN WITH HIV-1/2 [id number] 12:07:00 Test Item Value Reference Range Comments HIV-1 ANTIGEN WITH HIV 1\T\2 ANTIBODY (2) Nonreactive Nonreactive (BEAKER) (test dbgz=3581) CALCIUM, [id number] 06:37:00 Test Item Value Reference Range Comments CALCIUM IONIZED (BEAKER) (test aweh=894) 1.08 mmol/L 1.12-1.27 PH, BLOOD (BEAKER) (test ykkf=3997) 7.25 BASIC METABOLIC [id number] 06:26:00 Test Item Value Reference Range Comments SODIUM (BEAKER) (test 134 meq/L 136-145 cyhc=375) POTASSIUM (BEAKER) (test 5.1 meq/L 3.5-5.1 jzad=012) CHLORIDE (BEAKER) (test 103 meq/L 98-107 kiav=718) CO2 (BEAKER) (test 25 meq/L 22-29 gedf=645) BLOOD UREA NITROGEN 45 mg/dL 7-21 (BEAKER) (test imnq=490) CREATININE (BEAKER) (test 2.92 mg/dL 0.57-1.25 tzhu=228) GLUCOSE RANDOM (BEAKER) 163 mg/dL 70-105 (test tive=425) CALCIUM (BEAKER) (test 8.1 mg/dL 8.4-10.2 lzwc=585) EGFR (BEAKER) (test 16 mL/min/1.73 sq m ESTIMATED GFR IS NOT fyyd=1599) ACCURATE CREATININE CLEARANCE IN PREDICTING GLOMERULAR FILTRATION RATE. ESTIMATED GFR IS NOT APPLICABLE FOR DIALYSIS PATIENTS. B-TYPE NATRIURETIC FACTOR (BNP)2017-05-14 06:26:00 Test Item Value Reference Range Comments B-TYPE NATRIURETIC PEPTIDE (BEAKER) (test 474 pg/mL 0-100 dzio=426) [id number] 06:25:00 Test Item Value Reference Range Comments PHOSPHORUS (BEAKER) (test zaai=974) 5.7 mg/dL 2.3-4.7 [id number] 06:25:00 Test Item Value Reference Range Comments MAGNESIUM (BEAKER) (test qpft=585) 1.5 mg/dL 1.6-2.6 CBC W/PLT COUNT & AUTO [id number] 06:07:00 Test Item Value Reference Range Comments WHITE BLOOD CELL COUNT (BEAKER) (test jzof=295) 8.9 K/ L 3.5-10.5 RED BLOOD CELL COUNT (BEAKER) (test xmlh=311) 4.32 M/ L 3.93-5.22 HEMOGLOBIN (BEAKER) (test riqk=253) 11.0 GM/DL 11.2-15.7 HEMATOCRIT (BEAKER) (test qywy=977) 36.6 % 34.1-44.9 MEAN CORPUSCULAR VOLUME (BEAKER) (test uxeb=155) 84.7 fL 79.4-94.8 MEAN CORPUSCULAR HEMOGLOBIN (BEAKER) (test 25.5 pg 25.6-32.2 dykk=142) MEAN CORPUSCULAR HEMOGLOBIN CONC (BEAKER) (test 30.1 GM/DL 32.2-35.5 bwlr=270) RED CELL DISTRIBUTION WIDTH (BEAKER) (test 14.6 % 11.7-14.4 tlug=613) PLATELET COUNT (BEAKER) (test puwt=566) 201 K/CU MM 150-450 MEAN PLATELET VOLUME (BEAKER) (test opnd=888) 11.1 fL 9.4-12.3 NUCLEATED RED BLOOD CELLS (BEAKER) (test 0 /100 WBC 0-0 gppx=978) NEUTROPHILS RELATIVE PERCENT (BEAKER) (test 55 % mzua=380) LYMPHOCYTES RELATIVE PERCENT (BEAKER) (test 36 % ykln=288) MONOCYTES RELATIVE PERCENT (BEAKER) (test 5 % gqie=608) EOSINOPHILS RELATIVE PERCENT (BEAKER) (test 3 % zeao=975) BASOPHILS RELATIVE PERCENT (BEAKER) (test 1 % jbum=109) NEUTROPHILS ABSOLUTE COUNT (BEAKER) (test 4.85 K/ L 1.56-6.13 rshb=672) LYMPHOCYTES ABSOLUTE COUNT (BEAKER) (test 3.18 K/ L 1.18-3.74 frky=756) MONOCYTES ABSOLUTE COUNT (BEAKER) (test 0.47 K/ L 0.24-0.36 uyif=497) EOSINOPHILS ABSOLUTE COUNT (BEAKER) (test 0.25 K/ L 0.04-0.36 kvnp=664) BASOPHILS ABSOLUTE COUNT (BEAKER) (test 0.07 K/ L 0.01-0.08 czfe=152) IMMATURE GRANULOCYTES-RELATIVE PERCENT (BEAKER) 0 % 0-1 (test logn=8946) POCT-GLUCOSE [id number] 22:38:00 Test Item Value Reference Range Comments POC-GLUCOSE METER (BEAKER) 262 mg/dL 70-110 TESTED AT [facility] [address] (test yyyw=4243) [place] [address] PROTEIN, RANDOM [id number] 22:18:00 Test Item Value Reference Range Comments PROTEIN, URINE (BEAKER) (test fxue=9530) 641 mg/dL 0-14 CREATININE, RANDOM [id number] 22:07:00 Test Item Value Reference Range Comments CREATININE URINE (BEAKER) (test vzct=290) 124.9 mg/dL Reference Range: No NormalsURINALYSIS W/ [id number] 22:03:00 Test Item Value Reference Range Comments COLOR (BEAKER) (test bcfm=085) Yellow CLARITY (BEAKER) (test fhmp=407) Cloudy SPECIFIC GRAVITY UA (BEAKER) (test xhae=426) 1.015 1.001-1.035 PH UA (BEAKER) (test lsyv=649) 5.5 5.0-8.0 PROTEIN UA (BEAKER) (test rtuc=102) 300 mg/dL Negative GLUCOSE UA (BEAKER) (test jont=078) 300 mg/dL Negative KETONES UA (BEAKER) (test oqsl=354) Negative Negative BILIRUBIN UA (BEAKER) (test uajl=818) Negative Negative BLOOD UA (BEAKER) (test hptw=500) Trace Negative NITRITE UA (BEAKER) (test ldsl=750) Negative Negative LEUKOCYTE ESTERASE UA (BEAKER) (test jfcr=741) Moderate Negative UROBILINOGEN UA (BEAKER) (test bcwz=832) 0.2 mg/dL 0.2-1.0 RBC UA (BEAKER) (test kqaq=541) 11 /HPF WBC UA (BEAKER) (test ndjn=422) 36 /HPF MUCUS (BEAKER) (test pniw=2671) Few SQUAMOUS EPITHELIAL (BEAKER) (test gcgs=290) 12 /HPF HYALINE CASTS (BEAKER) (test xjvu=912) 66 /LPF CASTS (BEAKER) (test lcpw=1120) 112 /LPF YEAST (BEAKER) (test nhyw=4402) Moderate SOURCE(BEAKER) (test dtrf=5968) Urine, Voided [id number] 19:49:00 Test Item Value Reference Range Comments SODIUM (BEAKER) (test plvp=389) 136 meq/L 136-145 POTASSIUM (BEAKER) (test 5.1 meq/L 3.5-5.1 Specimen slightly hemolyzed cdut=152) CHLORIDE (BEAKER) (test 104 meq/L 98-107 mlaq=092) CO2 (BEAKER) (test zfoh=067) 25 meq/L 22-29 Call if K > 5POCT-GLUCOSE [id number] 11:37:00 Test Item Value Reference Range Comments POC-GLUCOSE METER (BEAKER) 293 mg/dL 70-110 TESTED AT [address] (test nzvk=3228) [place] [address] RAD, CHEST, 1 VIEW, NON [id number] 10:22:00Reason for exam:->SOBShould this be performed at the bedside?->YesFINAL REPORT Chest one view Discussion: There is cardiomegaly and interstitial congestion. A small right-sided effusion is noted. No pneumothorax. IMPRESSIONS: Suspected CHF. Signed: Jeannette Nava Verified Date/Time: 05/13/2017 10:22:34 Reading Location: [facility] Radiology Reading Room POCT-GLUCOSE [id number] 08:34:00 Test Item Value Reference Range Comments POC-GLUCOSE METER (BEAKER) 178 mg/dL 70-110 TESTED AT [address] (test qmog=8448) [place] [address] POCT-GLUCOSE [id number] 06:53:00 Test Item Value Reference Range Comments POC-GLUCOSE METER (BEAKER) 167 mg/dL 70-110 TESTED AT [address] (test sqks=7057) [place] [address] [id number] 04:48:00 Test Item Value Reference Range Comments BLOOD UREA NITROGEN (BEAKER) (test eyvx=466) 36 mg/dL 7-21 [id number] 04:48:00 Test Item Value Reference Range Comments SODIUM (BEAKER) (test ufup=882) 139 meq/L 136-145 POTASSIUM (BEAKER) (test msft=953) 5.2 meq/L 3.5-5.1 CHLORIDE (BEAKER) (test zghw=783) 109 meq/L 98-107 CO2 (BEAKER) (test vqhq=489) 23 meq/L 22-29 [id number] 04:48:00 Test Item Value Reference Range Comments CREATININE (BEAKER) (test 1.73 mg/dL 0.57-1.25 swgn=063) EGFR (BEAKER) (test 30 mL/min/1.73 sq m ESTIMATED GFR IS NOT ysug=9245) ACCURATE CREATININE CLEARANCE IN PREDICTING GLOMERULAR FILTRATION RATE. ESTIMATED GFR IS NOT APPLICABLE FOR DIALYSIS PATIENTS. CBC (HEMOGRAM ONLY)2017-05-13 04:33:00 Test Item Value Reference Range Comments WHITE BLOOD CELL COUNT (BEAKER) (test ukzg=610) 10.2 K/ L 3.5-10.5 RED BLOOD CELL COUNT (BEAKER) (test hfwj=673) 4.54 M/ L 3.93-5.22 HEMOGLOBIN (BEAKER) (test akar=068) 11.4 GM/DL 11.2-15.7 HEMATOCRIT (BEAKER) (test koya=345) 37.6 % 34.1-44.9 MEAN CORPUSCULAR VOLUME (BEAKER) (test uqmw=885) 82.8 fL 79.4-94.8 MEAN CORPUSCULAR HEMOGLOBIN (BEAKER) (test 25.1 pg 25.6-32.2 vaou=382) MEAN CORPUSCULAR HEMOGLOBIN CONC (BEAKER) (test 30.3 GM/DL 32.2-35.5 qauq=714) RED CELL DISTRIBUTION WIDTH (BEAKER) (test 14.7 % 11.7-14.4 iptt=515) PLATELET COUNT (BEAKER) (test ihws=346) 194 K/CU MM 150-450 MEAN PLATELET VOLUME (BEAKER) (test rlej=518) 10.9 fL 9.4-12.3 NUCLEATED RED BLOOD CELLS (BEAKER) (test 0 /100 WBC 0-0 ysqh=948) [id number] 23:29:00 Test Item Value Reference Range Comments ACTIVATED CLOTTING TIME 136 sec TESTED AT [address] (BEAKER) (test ydfy=388) [facility] [address] [id number] 20:13:00 Test Item Value Reference Range Comments ACTIVATED CLOTTING TIME 175 sec TESTED AT [facility] [address] (BEAKER) (test wwkv=645) [place] [address] [id number] 18:36:00 Test Item Value Reference Range Comments ACTIVATED CLOTTING TIME 202 sec TESTED AT [place] [address] [address] (BEAKER) (test wgun=624) [place] [address] [id number] 18:03:00 Test Item Value Reference Range Comments ACTIVATED CLOTTING TIME 208 sec TESTED AT [place] [address] [address] (BEAKER) (test lhja=192) [place] [address] BASIC METABOLIC [id number] 11:57:00 Test Item Value Reference Range Comments SODIUM (BEAKER) (test 139 meq/L 136-145 seto=711) POTASSIUM (BEAKER) (test 4.9 meq/L 3.5-5.1 lodj=812) CHLORIDE (BEAKER) (test 107 meq/L 98-107 aust=909) CO2 (BEAKER) (test 27 meq/L 22-29 jvnl=059) BLOOD UREA NITROGEN 36 mg/dL 7-21 (BEAKER) (test cynf=755) CREATININE (BEAKER) (test 1.60 mg/dL 0.57-1.25 fwya=524) GLUCOSE RANDOM (BEAKER) 187 mg/dL 70-105 (test rjci=673) CALCIUM (BEAKER) (test 8.6 mg/dL 8.4-10.2 bpbb=301) EGFR (BEAKER) (test 33 mL/min/1.73 sq m ESTIMATED GFR IS NOT vuif=7579) ACCURATE CREATININE CLEARANCE IN PREDICTING GLOMERULAR FILTRATION RATE. ESTIMATED GFR IS NOT APPLICABLE FOR DIALYSIS PATIENTS. PROTHROMBIN [id number] 11:15:00 Test Item Value Reference Range Comments PROTIME (BEAKER) (test kkld=752) 14.8 seconds 11.7-14.7 INR (BEAKER) (test aikm=794) 1.2 <=5.9 RECOMMENDED COUMADIN/WARFARIN INR THERAPY RANGESSTANDARD DOSE: 2.0 - 3.0 Includes: PROPHYLAXIS forvenous thrombosis, systemic embolization; TREATMENT for venous thrombosis and/or pulmonary embolus.HIGH RISK: Target INR is 2.5-3.5 for patients with mechanical heart valves.Within 24 hours, if on CoumadinCBC W/ PLT COUNT & AUTO [id number] 11:01:00 Test Item Value Reference Range Comments WHITE BLOOD CELL COUNT (BEAKER) (test eidd=388) 9.1 K/ L 3.5-10.5 RED BLOOD CELL COUNT (BEAKER) (test qgxa=637) 4.62 M/ L 3.93-5.22 HEMOGLOBIN (BEAKER) (test kmbi=975) 11.7 GM/DL 11.2-15.7 HEMATOCRIT (BEAKER) (test jatc=246) 38.0 % 34.1-44.9 MEAN CORPUSCULAR VOLUME (BEAKER) (test umkw=675) 82.3 fL 79.4-94.8 MEAN CORPUSCULAR HEMOGLOBIN (BEAKER) (test 25.3 pg 25.6-32.2 fdhn=199) MEAN CORPUSCULAR HEMOGLOBIN CONC (BEAKER) (test 30.8 GM/DL 32.2-35.5 utqq=995) RED CELL DISTRIBUTION WIDTH (BEAKER) (test 14.5 % 11.7-14.4 okdw=119) PLATELET COUNT (BEAKER) (test zuws=138) 205 K/CU MM 150-450 MEAN PLATELET VOLUME (BEAKER) (test isnz=257) 10.6 fL 9.4-12.3 NUCLEATED RED BLOOD CELLS (BEAKER) (test 0 /100 WBC 0-0 yoio=261) NEUTROPHILS RELATIVE PERCENT (BEAKER) (test 59 % khwc=632) LYMPHOCYTES RELATIVE PERCENT (BEAKER) (test 32 % cgka=912) MONOCYTES RELATIVE PERCENT (BEAKER) (test 5 % krgl=859) EOSINOPHILS RELATIVE PERCENT (BEAKER) (test 3 % ctdl=255) BASOPHILS RELATIVE PERCENT (BEAKER) (test 1 % alfu=334) NEUTROPHILS ABSOLUTE COUNT (BEAKER) (test 5.36 K/ L 1.56-6.13 wogw=712) LYMPHOCYTES ABSOLUTE COUNT (BEAKER) (test 2.86 K/ L 1.18-3.74 wbav=932) MONOCYTES ABSOLUTE COUNT (BEAKER) (test 0.48 K/ L 0.24-0.36 sdix=288) EOSINOPHILS ABSOLUTE COUNT (BEAKER) (test 0.27 K/ L 0.04-0.36 bbwx=238) BASOPHILS ABSOLUTE COUNT (BEAKER) (test 0.08 K/ L 0.01-0.08 wjbc=962) IMMATURE GRANULOCYTES-RELATIVE PERCENT (BEAKER) 0 % 0-1 (test fykh=1920) POCT-GLUCOSE [id number] 12:35:00 Test Item Value Reference Range Comments POC-GLUCOSE METER (BEAKER) 249 mg/dL 70-110 TESTED AT [address] (test zolv=7788) [place] [address] POCT-GLUCOSE [id number] 09:10:00 Test Item Value Reference Range Comments POC-GLUCOSE METER (BEAKER) 155 mg/dL 70-110 TESTED AT [address] (test tpft=8717) [place] [address] BASIC METABOLIC [id number] 05:39:00 Test Item Value Reference Range Comments SODIUM (BEAKER) (test 138 meq/L 136-145 ukyh=544) POTASSIUM (BEAKER) (test 4.7 meq/L 3.5-5.1 oxkl=993) CHLORIDE (BEAKER) (test 107 meq/L 98-107 gjwf=375) CO2 (BEAKER) (test 25 meq/L 22-29 jhia=122) BLOOD UREA NITROGEN 36 mg/dL 7-21 (BEAKER) (test xulm=632) CREATININE (BEAKER) (test 1.75 mg/dL 0.57-1.25 qoxr=267) GLUCOSE RANDOM (BEAKER) 126 mg/dL 70-105 (test xarw=292) CALCIUM (BEAKER) (test 8.2 mg/dL 8.4-10.2 drpq=589) EGFR (BEAKER) (test 29 mL/min/1.73 sq m ESTIMATED GFR IS NOT bynw=5204) ACCURATE CREATININE CLEARANCE IN PREDICTING GLOMERULAR FILTRATION RATE. ESTIMATED GFR IS NOT APPLICABLE FOR DIALYSIS PATIENTS. [id number] 05:27:00 Test Item Value Reference Range Comments PHOSPHORUS (BEAKER) (test fomo=594) 5.0 mg/dL 2.3-4.7 [id number] 05:27:00 Test Item Value Reference Range Comments MAGNESIUM (BEAKER) (test mkce=803) 1.6 mg/dL 1.6-2.6 POCT-GLUCOSE [id number] 05:25:00 Test Item Value Reference Range Comments POC-GLUCOSE METER (BEAKER) 144 mg/dL 70-110 TESTED AT [address] (test bwyx=0009) [place] [address] PROTHROMBIN [id number] 04:58:00 Test Item Value Reference Range Comments PROTIME (BEAKER) (test oxge=197) 14.2 seconds 11.7-14.7 INR (BEAKER) (test ncrs=327) 1.1 <=5.9 RECOMMENDED COUMADIN/WARFARIN INR THERAPY RANGESSTANDARD DOSE: 2.0 - 3.0 Includes: PROPHYLAXIS forvenous thrombosis, systemic embolization; TREATMENT for venous thrombosis and/or pulmonary embolus.HIGH RISK: Target INR is 2.5-3.5 for patients with mechanical heart valves.POCT-GLUCOSE [id number] 23:55:00 Test Item Value Reference Range Comments POC-GLUCOSE METER (BEAKER) 86 mg/dL 70-110 TESTED AT [address] (test mrqw=1583) [place] [address] B-TYPE NATRIURETIC FACTOR (BNP)2017-04-22 18:13:00 Test Item Value Reference Range Comments B-TYPE NATRIURETIC PEPTIDE (BEAKER) (test 1203 pg/mL 0-100 torn=934) POCT-GLUCOSE [id number] 17:36:00 Test Item Value Reference Range Comments POC-GLUCOSE METER (BEAKER) 259 mg/dL 70-110 TESTED AT [address] (test yzso=3445) [place] [address] HEMOGLOBIN [id number] 14:24:00 Test Item Value Reference Range Comments HEMOGLOBIN A1C (BEAKER) (test phlv=274) 10.5 % 4.3-6.1 POCT-GLUCOSE [id number] 12:34:00 Test Item Value Reference Range Comments POC-GLUCOSE METER (BEAKER) 207 mg/dL 70-110 TESTED AT [address] (test sqpd=6707) [place] [address] [id number] 07:53:00 Test Item Value Reference Range Comments PHOSPHORUS (BEAKER) (test ntjz=831) 3.9 mg/dL 2.3-4.7 [id number] 07:53:00 Test Item Value Reference Range Comments MAGNESIUM (BEAKER) (test vvkk=965) 1.6 mg/dL 1.6-2.6 BASIC METABOLIC [id number] 07:53:00 Test Item Value Reference Range Comments SODIUM (BEAKER) (test 139 meq/L 136-145 wsqv=178) POTASSIUM (BEAKER) (test 4.5 meq/L 3.5-5.1 sbju=524) CHLORIDE (BEAKER) (test 108 meq/L 98-107 qtkh=153) CO2 (BEAKER) (test 25 meq/L 22-29 hubl=121) BLOOD UREA NITROGEN 29 mg/dL 7-21 (BEAKER) (test cvqg=094) CREATININE (BEAKER) (test 1.54 mg/dL 0.57-1.25 itle=919) GLUCOSE RANDOM (BEAKER) 211 mg/dL 70-105 (test kigz=357) CALCIUM (BEAKER) (test 8.5 mg/dL 8.4-10.2 iajl=311) EGFR (BEAKER) (test 34 mL/min/1.73 sq m ESTIMATED GFR IS NOT djlk=2243) ACCURATE CREATININE CLEARANCE IN PREDICTING GLOMERULAR FILTRATION RATE. ESTIMATED GFR IS NOT APPLICABLE FOR DIALYSIS PATIENTS. TROPONIN [id number] 07:29:00 Test Item Value Reference Range Comments TROPONIN I (BEAKER) (test cxso=807) 0.05 ng/mL 0.00-0.03 Troponin I (TnI) levels [...] acidosis, acute neurological disease, and persistent tachyarrhythmia.PROTHROMBIN [id number] 07:01:00 Test Item Value Reference Range Comments PROTIME (BEAKER) (test yixi=362) 13.8 seconds 11.7-14.7 INR (BEAKER) (test tzmu=772) 1.1 <=5.9 RECOMMENDED COUMADIN/WARFARIN INR THERAPY RANGESSTANDARD DOSE: 2.0 - 3.0 Includes: PROPHYLAXIS forvenous thrombosis, systemic embolization; TREATMENT for venous thrombosis and/or pulmonary embolus.HIGH RISK: Target INR is 2.5-3.5 for patients with mechanical heart valves.POCT-GLUCOSE [id number] 06:28:00 Test Item Value Reference Range Comments POC-GLUCOSE METER (BEAKER) 198 mg/dL 70-110 TESTED AT [address] (test ster=8862) [place] [id number] CREATINE KINASE (CK), TOTAL AND [id number] 00:49:00 Test Item Value Reference Range Comments CREATINE KINASE TOTAL (BEAKER) (test jzpv=785) 69 U/L 29-200 CREATINE KINASE-MB (AKER) (test eaij=956) 4.3 ng/mL 0.0-6.6 CREATINE KINASE-MB INDEX (SERVANDOAKER) (test rxeu=500) 6.2 % CK-MB Reference Range:<6.7 Normal6.7-10.0 Borderline>10.0 AbnormalTROPONIN [id number] 00:49:00 Test Item Value Reference Range Comments TROPONIN I (SERVANDOAKER) (test tpwb=218) 0.05 ng/mL 0.00-0.03 Troponin I (TnI) levels [...] acidosis, acute neurological disease, and persistent tachyarrhythmia.POCT-GLUCOSE [id number] 20:44:00 Test Item Value Reference Range Comments POC-GLUCOSE METER ([facility]) 269 mg/dL 70-110 TESTED AT [address] (test jmuo=3896) [place] [id number]
[2018-05-26] MEDS ORDERED: ONDANSETRON 4 MG/2 ML VIAL IV PRN (15:40)
--- NOTE | 2018-05-26 15:53 | P.HP ---
Certification for Inpatient Patient admitted to: Inpatient With expected LOS: >2 Midnights Practitioner: I am a practitioner with admitting privileges, knowledge of patient current condition, hospital course, and medical plan of care. Services: Services provided to patient in accordance with Admission requirements found in Title 42 Section 412.3 of the Code of Federal Regulations Patient History Date of Service: 05/26/18 Primary Care Provider: Dr Eng - Nephrology Reason for admission: SOB History of Present Illness: Ms Priest is a 63 years old woman with multiple medical problems including IDDM, CKD, COPD, HTN, CAD s/p CABG x 4 in 05/17 who was admitted to the hospital directly from Nephrology clinic for LE edema, generalized anasarca and SOB. Pt has been having multiple admission in the past for the similar symptoms. She states that she started feeling worse for past couple of days. When she was seen in the nephrology clinic she was told to come to the hospital for lasix ggt. Pt has gained over 10lbs over the last week. She has been having generalized pain in the abdomen and legs due to the swelling. Allergies morphine Allergy (Severe, Verified 07/29/17 03:02) Anaphylaxis amoxicillin [From Augmentin] Allergy (Verified 07/29/17 03:02) Unknown basil Allergy (Verified 07/29/17 03:02) Unknown clavulanic acid [From Augmentin] Allergy (Verified 07/29/17 03:02) Unknown vancomycin Allergy (Verified 07/29/17 03:02) Unknown nitroglycerin Adverse Reaction (Mild, Verified 07/29/17 03:02) Nausea/Vomiting tramadol Adverse Reaction (Mild, Verified 07/29/17 03:02) Nausea/Vomiting Tramadol HCl Allergy (Uncoded 07/29/17 03:02) Unknown - Past Medical/Surgical History Diabetic: Yes -: COPD, former tobacco use -: HTN -: CAD, CABG x4 vessels -: Diabetes mellitus type 2 -: CHF, systolic -: Uterine cancer status post hysterectomy -: Obstructive sleep apnea -: GERD -: Hyperlipidemia -: Chronic renal disease -: Amputation left great toe -: Anemia -: Rectal surgery -: Hysterectomy -: Cholecystectomy -: Gastric surgery -: Appendectomy -: CABG x4 vessel -: Femoral popliteal bypass -: Left great toe amputation Psychosocial/ Personal History: The patient is a . Her son lives with her. She has 3 children. - Family History Father -: Heart disease, Hypertension, Stroke, Cancer Mother -: GI disease Sister -: Lung disease, Diabetes Brother -: Heart disease, Hypertension, Stroke - Social History Alcohol use: No CD- Drugs: No Caffeine use: Yes Review of Systems 10-point ROS is otherwise unremarkable Physical Examination - Physical Exam General: In no apparent distress, Mild distress HEENT: Atraumatic, PERRLA, Mucous membr. moist/pink, EOMI, Sclerae nonicteric Neck: Supple, 2+ carotid pulse no bruit, No LAD, JVD distended Respiratory: Normal air movement, Crackles/rales Cardiovascular: Regular rate/rhythm, Normal S1 S2, Edema (3+ with generalized anasarca) Gastrointestinal: Normal bowel sounds, Distended, Tenderness Musculoskeletal: Swelling Integumentary: No rashes Neurological: Normal speech, Normal strength at 5/5 x4 extr, Normal tone Lymphatics: No axilla or inguinal lymphadenopathy Assessment and Plan - Problems (Diagnosis) (1) Volume overload Current Visit: Yes Status: Acute Plan: Acute on Chronic Volume overload with recent weight gain of 10lbs, BL LE 3+ swelling, Generalized Anasarca, and abdominal Distention most likely 2.2 to Kidney failure -Will start patient on IV lasix ggt at this time -Nephrology and cardiology consulted. -Low NA and Fluid restriction -Daily I &O's and weight Qualifiers: Hypervolemia type: other Qualified Code(s): E87.79 - Other fluid overload (2) Anasarca Onset Date: 10/03/17 Current Visit: No Status: Acute Plan: See # 1 (3) Acute on chronic diastolic CHF (congestive heart failure) Onset Date: 03/17/18 Current Visit: No Status: Acute Plan: Acute on chronic Diastolic CHF -IV lasix ggt for now -ECHO in February 2018 with WNL EF and Decreased Ventricular Compliance (4) Zuevg-mt-ejammxk kidney injury Onset Date: 09/09/16 Current Visit: No Status: Acute Plan: Acute on Chronic KI stage 5. Pt is still making urine. -IV lasix ggt at this time -Nephrology consulted. -If needed may consider Dialysis if not improving. Qualifiers: Acute renal failure type: unspecified Chronic kidney disease stage: stage 5 , not on chronic dialysis Qualified Code(s): N17.9 - Acute kidney failure, unspecified; N18.5 - Chronic kidney disease, stage 5 (5) CAD (coronary artery disease) Onset Date: 10/03/17 Current Visit: No Status: Chronic Qualifiers: Coronary Disease-Associated Artery/Lesion type: [place] artery [place] vs. transplanted heart: [place] heart Associated angina: with stable angina Qualified Code(s): I25.118 - Atherosclerotic heart disease of [place] coronary artery with other forms of angina pectoris (6) COPD (chronic obstructive pulmonary disease) Onset Date: 02/04/17 Current Visit: No Status: Chronic Qualifiers: COPD type: chronic bronchitis Chronic bronchitis type: mucopurulent Qualified Code(s): J41.1 - Mucopurulent chronic bronchitis (7) Diabetes mellitus Onset Date: 04/28/15 Current Visit: No Status: Chronic (8) GERD (gastroesophageal reflux disease) Onset Date: 10/03/17 Current Visit: No Status: Chronic Qualifiers: Esophagitis presence: without esophagitis Qualified Code(s): K21.9 - Gastro -esophageal reflux disease without esophagitis (9) Hyperlipidemia Onset Date: 10/03/17 Current Visit: No Status: Chronic Qualifiers: Hyperlipidemia type: mixed hyperlipidemia Qualified Code(s): E78.2 - Mixed hyperlipidemia (10) Hypertension Current Visit: No Status: Chronic Qualifiers: Hypertension type: essential hypertension (11) Tobacco abuse Onset Date: 02/04/17 Current Visit: No Status: Chronic - Plan Admit to Med surg for IV lasix ggt for Volume overload. Discharge Plan: Home Plan to discharge in: Greater than 2 days - Advance Directives Does patient have a Living Will: No Does patient have a Durable POA for Healthcare: No - Code Status/Comfort Care Code Status Assessed: Yes Critical Care: No
[2018-05-26] MEDS ORDERED: FUROSEMIDE 100 MG in NA CHLORIDE 0.9% 90 ML IV SCH ×2 (16:00→21:00)
[2018-05-26] MEDS: FUROSEMIDE 100 MG in NA CHLORIDE 0.9% 90 ML IV SCH (16:59)
[2018-05-26] MEDS ORDERED: GABAPENTIN 100 MG CAP PO SCH (17:00)
[2018-05-26] MEDS: INSULIN -REGULAR HUMAN 50 UNIT/0.5 ML ML SQ SCH ×2 (17:00→20:36)
[2018-05-26] MEDS: ENOXAPARIN 40 MG/0.4 ML SQ SCH (17:00)
[2018-05-26 17:39] LABS: Urine Appearance CLEAR; Urine Bilirubin NEGATIVE (NEG); Urine Blood NEGATIVE (NEG); Urine Color YELLOW; Urine Glucose 2+ (NEG); Urine Protein 3+ (NEG); Urine Specific Gravity 1.025 (1.005-1.030); Urine Urobilinogen 0.2 mg/dL (0.2-1.0)
[2018-05-26 17:40] LABS: Absolute Lymphocytes (CBC) 2.5 K/uL (0.7-4.9); Absolute Monocytes 0.4 K/uL (0.1-1.3); Absolute Neutrophil 4.2 K/uL (1.8-8.0); Basophils % 1.1 % (0-1.3); Eosinophils % 1.7 % (0-4.4); Hematocrit 36.2 % (36.0-45.0); Lymphocytes % 34.2 % (15.3-44.8); MPV 8.4 fL (7.6-11.3); Monocytes % 5.6 % (3.3-12.3); RBC Red Blood Cell Count 4.46 M/uL (3.86-4.86)
[2018-05-26 17:42] LABS: Urine Microscopic Reflex ORDER UMIC
[2018-05-26 17:42] LABS: Phosphorus 4.5 mg/dL (2.5-4.9); Potassium 4.1 mmol/L (3.5-5.1)
[2018-05-26] MEDS ORDERED: INFLUENZA VACCINE (for 3y+) 0.5 ML DOSE IMVAC ONE (18:00)
[2018-05-26 18:10] LABS: Urine Bacteria <20 /HPF (<20); Urine Culture Reflex Order NOT NEEDED; Urine RBC <5 /HPF (NONE SEEN)
[2018-05-26 18:11] LABS: Urine Amorphous Sediment 1+ /HPF (NONE SEEN)
[2018-05-26] MEDS: CODEINE 30MG/APAP 300MG TAB PO PRN (18:25)
--- NOTE | 2018-05-26 18:52 | RAD REPORT ---
EXAM DESCRIPTION: RAD - Chest Pa And Lat (2 Views) - 05/26/2018 6:04 pm CLINICAL HISTORY: Shortness of breath COMPARISON: March 18, 2018 TECHNIQUE: PA and lateral views of the chest were obtained. FINDINGS: The lungs are similar volume to the comparison. Right base pleural and parenchymal opacifi cation are present. The right pleural effusion is slightly larger than the comparison. Cardiomegaly remains. Pulmonary vasculature not outside of normal range. Sternotomy wires are in place. No pneumo thorax. No measurable left pleural effusion. No acute bony finding noted. No aortic abnormality. IMPRESSION: Right lung base pleural and parenchymal opacification slightly worse than February 2018. Right pleural effusion has increased from the comparison study. In the acute clinical setting findings likely represent residual or recurrent pneumonia. Cardiomegaly without other findings for failure or volume overload.
[2018-05-26] MEDS ORDERED: FUROSEMIDE 40 MG/4 ML VIAL IV ONE (20:02)
[2018-05-26] MEDS: HYDRALAZINE HCL 25 MG TABLET PO SCH (20:34)
[2018-05-26] MEDS: FERROUS SULFATE 325 MG TAB PO SCH (20:35)
[2018-05-26] MEDS: CARVEDILOL 12.5 MG TAB PO SCH (20:35)
[2018-05-26] MEDS: GABAPENTIN 300 MG CAP PO SCH (20:35)
[2018-05-26] MEDS: ATORVASTATIN 40 MG TAB PO SCH ×2 (20:41→20:43)
[2018-05-26] MEDS: TRAZODONE 50 MG TABLET PO SCH (20:41)
[2018-05-26] MEDS: METOLAZONE 5 MG TABLET PO SCH (21:30)
[2018-05-27] MEDS: FUROSEMIDE 100 MG in NA CHLORIDE 0.9% 90 ML IV SCH ×4 (01:33→21:06)
--- NOTE | 2018-05-27 01:46 | CON ---
Date of Consultation: 05/26/2018 Chief Complaint: Severe fluid overload, anasarca. History Of Present Illness: The patient has underlying chronic kidney disease, proteinuria, and diab etic kidney disease. She presented to the office for routine visit and she was found to have severe fluid overload despite diuretics. The patient gained at least 15-20 pounds. The patient previously was admitted for fluid overload and congestive heart failure. She has history of coronary artery dis ease, status post CABG, diabetes, COPD, and dyslipidemia. Previously, she was admitted for status po st fall and elevated troponin level. On multiple occasions, she was found to have fluid overload. Review of Systems: Constitutional: Denies fever or chills. Eyes: Denies vision changes. Ears, Nose, Mouth, and Throat: Denies sore throat, earache. Respiratory: Has dyspnea on exertion. Denies wheezing. Cardiovascular: Denies chest pain, syncope. GI: Denies nausea, vomiting. : Denies dysuria or hematuria. Musculoskeletal: Denies gout. Has severe legs edema. Has difficulty with ambulation. Neurological: Denies seizure and syncope. Past Medical History: As above, history of diabetes mellitus, hypertension, chronic kidney disease s tage 4, diabetic kidney disease, hypertensive kidney disease, severe proteinuria, nonnephrotic-range proteinuria, diabetic kidney disease with proteinuria, dyslipidemia, COPD, coronary artery disease, h istory of myocardial infarction, congestive heart failure with diastolic dysfunction, and history of congestive heart failure exacerbation. Social History: Denies alcohol or illicit drugs. Family History: No kidney disease in the family. Physical Examination: General: The patient is awake, alert, follows commands. Eyes: Anicteric sclerae. EOMI. Ears, Nose, Mouth, and Throat: Oral mucosa moist. No pallor. Neck: Supple. No JVD. No bruits. Lungs: Crackles bilaterally present. Heart: S1, S2. No pericardial friction rub. Abdomen: Obese, soft, and nontender. No rebound. No guarding. Extremities: Edema present in both lower and upper extremities. Neurological: Moving extremities. Cranial nerves intact. Psychiatric: Alert and oriented x3. Normal affect. Laboratory Data: Hemoglobin 11.6, WBC 7.4, and platelet count 205,000. Sodium 140, potassium 4.1, c hloride 105, CO2 27, BUN 60, creatinine 3.12, phosphorus 4.2, and magnesium 2.0. Impression And Plan: 1.Severe fluid overload, anasarca. The patient has chronic kidney disease stage 4. The patient was found to have acute on chronic kidney injury. Previously baseline creatinine was 1.9 in March 19. On presentation to the hospital, creatinine was 3.12 and BUN 60. The patient has nonoliguric ac tangirnaq on chronic kidney injury associated with fluid overload, anasarca. Plan is to start Lasix drip a nd monitor electrolytes closely. Renal function test will be done daily. The patient may need dialy sis. Plan is to monitor fluid balance when the patient is on Lasix drip and advance dose accordingly . Monitor electrolytes and plan replacement according to the lab results. 2.Diabetes mellitus, proteinuria. The patient may need a renal biopsy to rule out glomerulonephriti s. The urinalysis was obtained and did not show hematuria. There is a history of proteinuria. At t his point, the patient cannot take BLAYNE inhibitor because of severe acute kidney injury. 3.Hypertension. Adjust blood pressure medication as needed. 4.Fluid overload, anasarca. Lasix drip was started. Advance dose as needed and continue metolazone with Lasix drip. JONNY/MODL Voice ID: [id number] Report ID: [id number]
[2018-05-27 05:28] LABS: Absolute Lymphocytes (CBC) 2.7 K/uL (0.7-4.9); Absolute Monocytes 0.4 K/uL (0.1-1.3); Absolute Neutrophil 3.3 K/uL (1.8-8.0); Basophils % 1.4 % (0-1.3); Hematocrit 32.9 % (36.0-45.0); Lymphocytes % 40.2 % (15.3-44.8); MPV 8.1 fL (7.6-11.3); Monocytes % 6.6 % (3.3-12.3); RBC Red Blood Cell Count 4.04 M/uL (3.86-4.86)
[2018-05-27 05:40] LABS: Albumin 2.8 g/dL (3.4-5.0); Bilirubin Total 0.4 mg/dL (0.2-1.0); Potassium 3.8 mmol/L (3.5-5.1); Protein, Total 6.5 g/dL (6.4-8.2)
[2018-05-27] MEDS: INSULIN -REGULAR HUMAN 50 UNIT/0.5 ML ML SQ SCH ×4 (07:30→21:07)
[2018-05-27] MEDS: ENOXAPARIN 40 MG/0.4 ML SQ SCH (08:10)
[2018-05-27] MEDS: CODEINE 30MG/APAP 300MG TAB PO PRN ×2 (08:10→21:21)
[2018-05-27] MEDS: FERROUS SULFATE 325 MG TAB PO SCH ×2 (08:11→21:09)
[2018-05-27] MEDS: ISOSORBIDE MONO SR 30 MG TAB PO SCH (08:11)
[2018-05-27] MEDS: GABAPENTIN 100 MG CAP PO SCH ×2 (08:11→11:39)
[2018-05-27] MEDS: NIFEDIPINE XL 60 MG TABLET PO SCH (08:11)
[2018-05-27] MEDS: CLOPIDOGREL 75 MG TABLET PO SCH (08:11)
[2018-05-27] MEDS: CARVEDILOL 12.5 MG TAB PO SCH ×2 (08:11→21:08)
[2018-05-27] MEDS: METOLAZONE 5 MG TABLET PO SCH ×2 (08:12→21:10)
[2018-05-27] MEDS: HYDRALAZINE HCL 25 MG TABLET PO SCH ×3 (08:12→21:08)
--- NOTE | 2018-05-27 08:20 | RAD REPORT ---
EXAM DESCRIPTION: RAD - Chest Pa And Lat (2 Views) - 05/27/2018 6:55 am CLINICAL HISTORY: SOB Chest pain. COMPARISON: Chest Pa And Lat (2 Views) dated 05/26/2018; Chest Pa And Lat (2 Views) dated 03/18/2018; Chest Single View dated 03/16/2018; Chest Pa And Lat (2 Views) dated 10/03/2017 FINDINGS: Patchy opacity in the right lung base and to a lesser extent the left lung base laterally again noted with right pleural effusion, essentially unchanged. The heart is mildly moderately enlarg ed with sternotomy wires present. No displaced fractures. IMPRESSION: Stable chest since 05/26/2018 study.
[2018-05-27] MEDS ORDERED: HOME MED 1 EA UNK (Nifedipine [Nifedipine Er] 60 MG) PO SCH (09:00)
[2018-05-27] MEDS ORDERED: BUPROPION HCL 75 MG PO SCH ×2 (09:00)
--- NOTE | 2018-05-27 12:16 | CON ---
Date of Consultation: 05/26/2018 Reason For Consultation: Anasarca and congestive heart failure. History Of Present Illness: Ms. Priest is a 63-year-old Latin-Irish woman with history of chronic d iastolic congestive heart failure, coronary artery disease, COPD, chronic renal disease, hypertension and diabetes, that came in with anasarca, shortness of breath. Past Medical History: As stated above. Allergies: MORPHINE, PENICILLIN, DYCILL, VANCOMYCIN, AUGMENTIN AND TRAMADOL. Review of Systems: Negative. Social History: Negative. Family History: Positive for diabetes. Medications: At home include Procardia, Demadex, Lipitor, Bumex, Coreg, Plavix, insulin, Imdur and h ydralazine. Physical Examination: Vital Signs: Blood pressure is 179/94. She was short of breath, afebrile, sinus rhythm. HEENT: Negative. Neck: Supple. No bruit, lymphadenopathy, JVD, or thyromegaly. Chest: Reveals some rales both bases. Cardiac: Revealed a regular rhythm and rate with S4 gallops. Abdomen: Obese. Extremities: Revealed 3+ edema all the way to the groin bilaterally. Pulses were present bilaterall y, but weak. Skin: Moist. Neurologic: She was nonfocal. Laboratory Data: Her creatinine was 3.12. Hemoglobin 10.6, her glucose is 285. Echocardiogram in 2017 showed diastolic congestive heart failure with normal ejection fraction. Impression And Plan: 1.Acute on chronic renal failure. 2.Acute on chronic diastolic congestive heart failure. 3.Diabetes. 4.Hypertension, poorly controlled. 5.Chronic obstructive pulmonary disease. 6.History of coronary artery disease. I think we will need to stop her Procardia. I agree with Renal input and assessment and plan and the Lasix drip. No need to repeat any cardiac studies at this point. We will watch her creatinine. Christophe mackey may be heading into hemodialysis if she is not improved. Her chronic obstructive pulmonary disease , coronary artery disease and diabetes seems to be fairly well controlled at this point. JAMIA/CELESTINE Voice ID: [id number] Report ID: [id number]
--- NOTE | 2018-05-27 13:07 | PN ---
Date of Progress Note: 05/27/2018 Ms. Priest was admitted and seen yesterday on 05/26/2018 with anasarca, diastolic congestive heart fail ure, acute on chronic renal failure, was seen by Dr. Eng from Nephrology. Lasix drip was started an d hemodialysis is being considered. Creatinine is improved today. She has less edema. We will cont inue her present medical regimen. She does take Procardia at home and I suggest that we get off Proc ardia as that may be exacerbating her edema as well. We will continue to follow her. JAMIA/CELESTINE Voice ID: [id number] Report ID: [id number]
[2018-05-27] MEDS ORDERED: GLUCAGON 1 MG/VIAL IM PRN (14:52)
[2018-05-27] MEDS ORDERED: D50W 25 GM/50 ML SYRINGE IV PRN (14:52)
--- NOTE | 2018-05-27 17:40 | P.PN ---
Subjective Date of Service: 05/27/18 Primary Care Provider: Dr Eng - Nephrology Chief Complaint: SOB Subjective: No C/O voiced, Ambulating, Improving, Working w/ PT, Doing well Review of Systems 10-point ROS is otherwise unremarkable Physical Examination - Vital Signs Temperature: 97.8 F Blood Pressure: 141/66 Pulse: 60 Respirations: 16 Pulse Ox (%): 92 - Physical Exam General: Alert, In no apparent distress HEENT: Atraumatic, PERRLA, EOMI Neck: Supple, JVD not distended Respiratory: Normal air movement, Crackles/rales Cardiovascular: Regular rate/rhythm, Normal S1 S2 Gastrointestinal: Normal bowel sounds, No tenderness Musculoskeletal: No tenderness Integumentary: No rashes Neurological: Normal speech, Normal tone, Normal affect Lymphatics: No axilla or inguinal lymphadenopathy - Studies Laboratory Data (last 24 hrs) 05/27/18 05:06: Sodium 142, Potassium 3.8, BUN 62 H, Creatinine 2.88 H, Glucose 136 H, Total Bilirubin 0.4, AST 25, ALT 30, Alkaline Phosphatase 162 H 05/27/18 05:06: WBC 6.7, Hgb 10.6 L, Hct 32.9 L, Plt Count 178 05/26/18 17:15: Sodium 140, Potassium 4.1, BUN 60 H, Creatinine 3.12 H, Glucose 252 H, Phosphorus 4.5, Magnesium 2.0 05/26/18 17:15: WBC 7.4, Hgb 11.6 L, Hct 36.2, Plt Count 205 Medications List Reviewed: Yes Assessment And Plan - Current Problems (Diagnosis) (1) Volume overload Current Visit: Yes Status: Acute Plan: Acute on Chronic Volume overload with recent weight gain of 10lbs, BL LE 3+ swelling, Generalized Anasarca, and abdominal Distention most likely 2.2 to Kidney failure. Improving today -on IV Lasix triple continue that here in the hospital -Nephrology and cardiology consulted. -Low NA and Fluid restriction -Daily I &O's and weight Qualifiers: Hypervolemia type: other Qualified Code(s): E87.79 - Other fluid overload (2) Anasarca Onset Date: 10/03/17 Current Visit: No Status: Acute Plan: See # 1 (3) Acute on chronic diastolic CHF (congestive heart failure) Onset Date: 03/17/18 Current Visit: No Status: Acute Plan: Acute on chronic Diastolic CHF -IV lasix ggt for now -ECHO in February 2018 with WNL EF and Decreased Ventricular Compliance (4) [id number] kidney injury Onset Date: 09/09/16 Current Visit: No Status: Acute Plan: Acute on Chronic KI stage 5. Pt is still making urine. -IV lasix ggt at this time -Nephrology consulted. -If needed may consider Dialysis if not improving. Qualifiers: Acute renal failure type: unspecified Chronic kidney disease stage: stage 5 , not on chronic dialysis Qualified Code(s): N17.9 - Acute kidney failure, unspecified; N18.5 - Chronic kidney disease, stage 5 (5) CAD (coronary artery disease) Onset Date: 10/03/17 Current Visit: No Status: Chronic Qualifiers: Coronary Disease-Associated Artery/Lesion type: [place] artery [place] vs. transplanted heart: [place] heart Associated angina: with stable angina Qualified Code(s): I25.118 - Atherosclerotic heart disease of [place] coronary artery with other forms of angina pectoris (6) COPD (chronic obstructive pulmonary disease) Onset Date: 02/04/17 Current Visit: No Status: Chronic Qualifiers: COPD type: chronic bronchitis Chronic bronchitis type: mucopurulent Qualified Code(s): J41.1 - Mucopurulent chronic bronchitis (7) Diabetes mellitus Onset Date: 04/28/15 Current Visit: No Status: Chronic (8) GERD (gastroesophageal reflux disease) Onset Date: 10/03/17 Current Visit: No Status: Chronic Qualifiers: Esophagitis presence: without esophagitis Qualified Code(s): K21.9 - Gastro -esophageal reflux disease without esophagitis (9) Hyperlipidemia Onset Date: 10/03/17 Current Visit: No Status: Chronic Qualifiers: Hyperlipidemia type: mixed hyperlipidemia Qualified Code(s): E78.2 - Mixed hyperlipidemia (10) Hypertension Current Visit: No Status: Chronic Qualifiers: Hypertension type: essential hypertension (11) Tobacco abuse Onset Date: 02/04/17 Current Visit: No Status: Chronic Discharge Plan: Home Plan to discharge in: 48 Hours - Code Status/Comfort Care Code Status Assessed: Yes Critical Care: No
--- NOTE | 2018-05-27 19:49 | PN ---
Date of Progress Note: 05/27/2018 Subjective: The patient was admitted with anasarca, started on diuresis, responding very well. Physical Examination: Vital Signs: Blood pressure 172/80, pulse of 74. The patient had good urine output more than 1500. Chest: Decreased entry bilateral base. Heart: S1 and S2. Systolic murmur. Abdomen: Soft and nontender. Extremities: +3 edema. Laboratory Data: WBC 6.7, H and H 10.6/32.9, platelets 178. Sodium 142, potassium 3.8, bicarb 30, B UN 62, creatinine 2.8, calcium of 8. Current Medications: The patient on Lasix drip, Plavix, Lovenox, ferrous sulfate, atorvastatin, carv edilol 12.5, hydralazine 50 t.i.d., isosorbide, nifedipine 60 daily, gabapentin, prazosin, metolazone 5 mg. Assessment And Plan: 1.Acute kidney injury secondary to cardiorenal over volume. I am going to continue current diuresis . We will increase Lasix to 20 mg and we will continue to monitor the patient. 2.Hypertension, uncontrolled. We will utilize blood pressure for more diuresis. I am going to go a head and increase hydralazine to 100 mg and increase Lasix drip to 20 mg and we will follow up the [facility]. Continue metolazone. 3.Anasarca secondary to cardiorenal. We will continue diuresis. I am going to go ahead and send for protein creatinine and I will send for TSH and we will follow up. GAMA Voice ID: [id number] Report ID: [id number]
[2018-05-27] MEDS: ATORVASTATIN 40 MG TAB PO SCH (21:09)
[2018-05-27] MEDS: TRAZODONE 50 MG TABLET PO SCH (21:09)
[2018-05-27] MEDS: GABAPENTIN 300 MG CAP PO SCH (21:09)
[2018-05-28] MEDS: FUROSEMIDE 100 MG in NA CHLORIDE 0.9% 90 ML IV SCH ×5 (01:22→20:41)
[2018-05-28 04:15] LABS: Absolute Lymphocytes (CBC) 2.1 K/uL (0.7-4.9); Absolute Monocytes 0.4 K/uL (0.1-1.3); Absolute Neutrophil 3.3 K/uL (1.8-8.0); Basophils % 1.1 % (0-1.3); Eosinophils % 2.7 % (0-4.4); Hematocrit 33.1 % (36.0-45.0); Lymphocytes % 34.3 % (15.3-44.8); MPV 8.4 fL (7.6-11.3); Monocytes % 6.3 % (3.3-12.3); RBC Red Blood Cell Count 4.16 M/uL (3.86-4.86)
[2018-05-28] MEDS ORDERED: ACETAMINOPHEN 500 MG TAB PO PRN (04:24)
[2018-05-28 05:20] LABS: Albumin 2.8 g/dL (3.4-5.0); Bilirubin Total 0.4 mg/dL (0.2-1.0); Phosphorus 4.7 mg/dL (2.5-4.9); Potassium 3.9 mmol/L (3.5-5.1); Protein, Total 6.5 g/dL (6.4-8.2)
[2018-05-28 05:47] LABS: Thyroid Stimulating Hormone 3.9 uIU/mL (0.360-3.740)
[2018-05-28] MEDS: INSULIN -REGULAR HUMAN 50 UNIT/0.5 ML ML SQ SCH ×4 (07:30→20:41)
[2018-05-28] MEDS: ENOXAPARIN 40 MG/0.4 ML SQ SCH (08:42)
[2018-05-28] MEDS: CARVEDILOL 12.5 MG TAB PO SCH ×2 (08:42→20:38)
[2018-05-28] MEDS: CLOPIDOGREL 75 MG TABLET PO SCH (08:42)
[2018-05-28] MEDS: METOLAZONE 5 MG TABLET PO SCH (08:43)
[2018-05-28] MEDS: FERROUS SULFATE 325 MG TAB PO SCH ×2 (08:44→20:38)
[2018-05-28] MEDS: HYDRALAZINE HCL 25 MG TABLET PO SCH ×3 (08:44→20:37)
[2018-05-28] MEDS: GABAPENTIN 100 MG CAP PO SCH ×2 (08:44→12:30)
[2018-05-28] MEDS: NIFEDIPINE XL 60 MG TABLET PO SCH (08:44)
[2018-05-28] MEDS: ISOSORBIDE MONO SR 30 MG TAB PO SCH (08:45)
[2018-05-28] MEDS ORDERED: ACETAMINOPHEN 325 MG TABLET PO PRN (12:45)
[2018-05-28] MEDS: CODEINE 30MG/APAP 300MG TAB PO PRN ×2 (12:46→23:51)
[2018-05-28] MEDS: NICOTINE 21 MG/PAT TD SCH (12:47)
--- NOTE | 2018-05-28 14:00 | P.PN ---
Subjective Date of Service: 05/28/18 Primary Care Provider: Dr Eng - Nephrology Chief Complaint: SOB Subjective: Tolerating diet, Ambulating, Improving, Working w/ PT, Doing well, Other (On Lasix ggt this AM. Doing much better than before) Review of Systems 10-point ROS is otherwise unremarkable Physical Examination - Vital Signs Temperature: 97.6 F Blood Pressure: 183/76 Pulse: 65 Respirations: 16 Pulse Ox (%): 94 - Physical Exam General: Alert, In no apparent distress HEENT: Atraumatic, PERRLA, EOMI Neck: JVD not distended, JVD distended Respiratory: Normal air movement, Crackles/rales, Expiratory wheezes, Inspiratory wheezes Cardiovascular: Regular rate/rhythm, Normal S1 S2 Gastrointestinal: Normal bowel sounds, No tenderness Musculoskeletal: No tenderness, Swelling Integumentary: No rashes Neurological: Normal speech, Normal tone, Normal affect Lymphatics: No axilla or inguinal lymphadenopathy - Studies Laboratory Data (last 24 hrs) 05/28/18 03:38: Sodium 140, Potassium 3.9, BUN 64 H, Creatinine 2.37 H, Glucose 179 H, Phosphorus 4.7, Total Bilirubin 0.4, AST 19, ALT 28, Alkaline Phosphatase 164 H 05/28/18 03:38: WBC 6.0, Hgb 10.8 L, Hct 33.1 L, Plt Count 171 Medications List Reviewed: Yes Assessment And Plan - Current Problems (Diagnosis) (1) Volume overload Current Visit: Yes Status: Acute Plan: Acute on Chronic Volume overload with recent weight gain of 10lbs, BL LE 3+ swelling, Generalized Anasarca, and abdominal Distention most likely 2.2 to Kidney failure. Improving today -on IV Lasix ggt continue that here in the hospital -Nephrology and cardiology consulted. -Low NA and Fluid restriction -Daily I &O's and weight Qualifiers: Hypervolemia type: other Qualified Code(s): E87.79 - Other fluid overload (2) Anasarca Onset Date: 10/03/17 Current Visit: No Status: Acute Plan: See # 1 (3) Acute on chronic diastolic CHF (congestive heart failure) Onset Date: 03/17/18 Current Visit: No Status: Acute Plan: Acute on chronic Diastolic CHF -IV lasix ggt for now -ECHO in February 2018 with WNL EF and Decreased Ventricular Compliance (4) [id number]-fvouckh kidney injury Onset Date: 09/09/16 Current Visit: No Status: Acute Plan: Acute on Chronic KI stage 5. Pt is still making urine. -IV lasix ggt at this time -Nephrology consulted. -If needed may consider Dialysis if not improving. Qualifiers: Acute renal failure type: unspecified Chronic kidney disease stage: stage 5 , not on chronic dialysis Qualified Code(s): N17.9 - Acute kidney failure, unspecified; N18.5 - Chronic kidney disease, stage 5 (5) CAD (coronary artery disease) Onset Date: 10/03/17 Current Visit: No Status: Chronic Qualifiers: Coronary Disease-Associated Artery/Lesion type: [place] artery [place] vs. transplanted heart: [place] heart Associated angina: with stable angina Qualified Code(s): I25.118 - Atherosclerotic heart disease of [place] coronary artery with other forms of angina pectoris (6) COPD (chronic obstructive pulmonary disease) Onset Date: 02/04/17 Current Visit: No Status: Chronic Qualifiers: COPD type: chronic bronchitis Chronic bronchitis type: mucopurulent Qualified Code(s): J41.1 - Mucopurulent chronic bronchitis (7) Diabetes mellitus Onset Date: 04/28/15 Current Visit: No Status: Chronic (8) GERD (gastroesophageal reflux disease) Onset Date: 10/03/17 Current Visit: No Status: Chronic Qualifiers: Esophagitis presence: without esophagitis Qualified Code(s): K21.9 - Gastro -esophageal reflux disease without esophagitis (9) Hyperlipidemia Onset Date: 10/03/17 Current Visit: No Status: Chronic Qualifiers: Hyperlipidemia type: mixed hyperlipidemia Qualified Code(s): E78.2 - Mixed hyperlipidemia (10) Hypertension Current Visit: No Status: Chronic Qualifiers: Hypertension type: essential hypertension (11) Tobacco abuse Onset Date: 02/04/17 Current Visit: No Status: Chronic - Plan Awaiting Clinical Improvement. continue on Lasix ggt Discharge Plan: Home Plan to discharge in: 48 Hours - Code Status/Comfort Care Code Status Assessed: Yes Critical Care: No
[2018-05-28] MEDS ORDERED: NICOTINE 21 MG/PAT TD SCH (16:25)
--- NOTE | 2018-05-28 18:50 | PN ---
Date of Progress Note: 05/28/2018 Subjective: The patient was admitted with anasarca and acute kidney injury. Physical Examination: Vital Signs: Blood pressure 183/76, pulse of 65, afebrile. The patient had good urine output of 520 0. The patient lost 8 pounds from yesterday. Chest: Crackles bilateral base. Heart: S1 and S2, regular. Abdomen: Soft, nontender. Extremities: +3 edema. Laboratory Data: H and H of 10.8 and 33.1. Sodium 140, potassium 3.9, bicarb 30, BUN 64, creatinine 2.3, phosphorus 4.7, calcium 8.3. TSH 3.9. Current Medications: Lasix 20 mg IV drip, Plavix, Lovenox, metolazone 5 mg, carvedilol 12.5, hydrala zine 100 t.i.d., nifedipine 60, Tylenol, and gabapentin. Assessment And Plan: 1.Acute kidney injury secondary to cardiorenal with anasarca. I am going to continue Lasix drip. W e will add spironolactone. Continue metolazone. 2.Hypertension. We just increased hydralazine yesterday. We will follow up response. 3.Anasarca secondary to renal failure. Continue diuresis. NATI/CELESTINE Voice ID: [id number] Report ID: [id number]
[2018-05-28] MEDS: GABAPENTIN 300 MG CAP PO SCH (20:38)
[2018-05-28] MEDS: ATORVASTATIN 40 MG TAB PO SCH (20:39)
[2018-05-28] MEDS: TRAZODONE 50 MG TABLET PO SCH (20:41)
[2018-05-29] MEDS: FUROSEMIDE 100 MG in NA CHLORIDE 0.9% 90 ML IV SCH ×3 (03:11→17:02)
[2018-05-29 06:43] LABS: Phosphorus 4.3 mg/dL (2.5-4.9); Potassium 3.6 mmol/L (3.5-5.1)
[2018-05-29] MEDS: INSULIN -REGULAR HUMAN 50 UNIT/0.5 ML ML SQ SCH ×4 (07:30→20:33)
[2018-05-29] MEDS: ENOXAPARIN 30 MG/0.3 ML SQ SCH (08:42)
[2018-05-29] MEDS: METOLAZONE 5 MG TABLET PO SCH (08:43)
[2018-05-29] MEDS: FERROUS SULFATE 325 MG TAB PO SCH ×2 (08:43→20:32)
[2018-05-29] MEDS: HYDRALAZINE HCL 25 MG TABLET PO SCH ×3 (08:44→20:31)
[2018-05-29] MEDS: SPIRONOLACTONE 25 MG TABLET PO SCH (08:45)
[2018-05-29] MEDS: NICOTINE 21 MG/PAT TD SCH (08:45)
[2018-05-29] MEDS: ISOSORBIDE MONO SR 30 MG TAB PO SCH (08:46)
[2018-05-29] MEDS: CARVEDILOL 12.5 MG TAB PO SCH ×2 (08:46→20:32)
[2018-05-29] MEDS: CLOPIDOGREL 75 MG TABLET PO SCH (08:47)
[2018-05-29] MEDS: NIFEDIPINE XL 60 MG TABLET PO SCH (08:47)
[2018-05-29] MEDS: GABAPENTIN 100 MG CAP PO SCH ×2 (08:48→12:30)
--- NOTE | 2018-05-29 08:58 | P.PN ---
Subjective Date of Service: 05/29/18 Primary Care Provider: Dr Eng - Nephrology Chief Complaint: SOB Subjective: Tolerating diet, Ambulating, Improving, Working w/ PT, Doing well, Other (Daily weight today is 174 lbs) Review of Systems 10-point ROS is otherwise unremarkable Physical Examination - Vital Signs Temperature: 98.2 F Blood Pressure: 172/86 Pulse: 67 Respirations: 16 Pulse Ox (%): 93 - Physical Exam General: Alert, In no apparent distress HEENT: Atraumatic, PERRLA, EOMI Neck: Supple, JVD not distended Respiratory: Normal air movement, Crackles/rales Cardiovascular: Regular rate/rhythm, Normal S1 S2, Edema Gastrointestinal: Normal bowel sounds, No tenderness Musculoskeletal: No tenderness, Swelling (1+) Integumentary: No rashes Neurological: Normal speech, Normal tone, Normal affect Lymphatics: No axilla or inguinal lymphadenopathy - Studies Laboratory Data (last 24 hrs) 05/29/18 05:43: Sodium 136, Potassium 3.6, BUN 62 H, Creatinine 2.23 H, Glucose 151 H, Phosphorus 4.3 Medications List Reviewed: Yes Assessment And Plan - Current Problems (Diagnosis) (1) Volume overload Current Visit: Yes Status: Acute Plan: Acute on Chronic Volume overload with recent weight gain of 10lbs, BL LE 3+ swelling, Generalized Anasarca, and abdominal Distention most likely 2.2 to Kidney failure. Improving today -on IV Lasix ggt at 20 mg/hr. Will continue. -Nephrology and cardiology consulted. -Low NA and Fluid restriction -Daily I &O's and weight Qualifiers: Hypervolemia type: other Qualified Code(s): E87.79 - Other fluid overload (2) Anasarca Onset Date: 10/03/17 Current Visit: No Status: Acute Plan: See # 1 (3) Acute on chronic diastolic CHF (congestive heart failure) Onset Date: 03/17/18 Current Visit: No Status: Acute Plan: Acute on chronic Diastolic CHF -IV lasix ggt. Will DW nephrology today regarding continuing ggt vs BID dosing -ECHO in February 2018 with WNL EF and Decreased Ventricular Compliance (4) [id number] kidney injury Onset Date: 09/09/16 Current Visit: No Status: Acute Plan: Acute on Chronic KI stage 5. Pt is still making urine. -IV lasix ggt at this time -Nephrology consulted. -If needed may consider Dialysis if not improving. Qualifiers: Acute renal failure type: unspecified Chronic kidney disease stage: stage 5 , not on chronic dialysis Qualified Code(s): N17.9 - Acute kidney failure, unspecified; N18.5 - Chronic kidney disease, stage 5 (5) CAD (coronary artery disease) Onset Date: 10/03/17 Current Visit: No Status: Chronic Qualifiers: Coronary Disease-Associated Artery/Lesion type: [place] artery [place] vs. transplanted heart: [place] heart Associated angina: with stable angina Qualified Code(s): I25.118 - Atherosclerotic heart disease of [place] coronary artery with other forms of angina pectoris (6) COPD (chronic obstructive pulmonary disease) Onset Date: 02/04/17 Current Visit: No Status: Chronic Qualifiers: COPD type: chronic bronchitis Chronic bronchitis type: mucopurulent Qualified Code(s): J41.1 - Mucopurulent chronic bronchitis (7) Diabetes mellitus Onset Date: 04/28/15 Current Visit: No Status: Chronic (8) GERD (gastroesophageal reflux disease) Onset Date: 10/03/17 Current Visit: No Status: Chronic Qualifiers: Esophagitis presence: without esophagitis Qualified Code(s): K21.9 - Gastro -esophageal reflux disease without esophagitis (9) Hyperlipidemia Onset Date: 10/03/17 Current Visit: No Status: Chronic Qualifiers: Hyperlipidemia type: mixed hyperlipidemia Qualified Code(s): E78.2 - Mixed hyperlipidemia (10) Hypertension Current Visit: No Status: Chronic Qualifiers: Hypertension type: essential hypertension (11) Tobacco abuse Onset Date: 02/04/17 Current Visit: No Status: Chronic - Plan Awaiting Clinical Improvement. continue on Lasix ggt for now. Will discuss with nephrology regarding possible DC of ggt and switch to BID IV dose Discharge Plan: Home Plan to discharge in: 48 Hours - Code Status/Comfort Care Code Status Assessed: Yes Critical Care: No
[2018-05-29] MEDS ORDERED: NIFEdipine 10 MG CAP PO ONE (11:26)
--- NOTE | 2018-05-29 11:29 | P.PN ---
Subjective Date of Service: 05/29/18 Primary Care Provider: Dr Eng - Nephrology Chief Complaint: SOB Subjective: Improving Significant wt loss will reduce lasix to 10mg/hr will increase Nifidipine to 90mg/daily will order UPC and renal US Physical Examination - Vital Signs Temperature: 98.2 F Blood Pressure: 172/86 Pulse: 67 Respirations: 16 Pulse Ox (%): 93 - Physical Exam General: Oriented x3 HEENT: Atraumatic Neck: Supple, Without JVD or thyroid abnormality Respiratory: Clear to auscultation bilaterally, Normal air movement Cardiovascular: Regular rate/rhythm, Normal S1 S2, No rubs, No murmurs, Edema Gastrointestinal: Normal bowel sounds Integumentary: No rashes - Studies Laboratory Data (last 24 hrs) 05/29/18 05:43: Sodium 136, Potassium 3.6, BUN 62 H, Creatinine 2.23 H, Glucose 151 H, Phosphorus 4.3 Medications List Reviewed: Yes Assessment And Plan - Current Problems (Diagnosis) (1) Volume overload Current Visit: Yes Status: Acute Qualifiers: Hypervolemia type: other Qualified Code(s): E87.79 - Other fluid overload (2) [id number]-ogkaosy kidney injury Onset Date: 09/09/16 Current Visit: No Status: Acute Qualifiers: Acute renal failure type: unspecified Chronic kidney disease stage: stage 5 , not on chronic dialysis Qualified Code(s): N17.9 - Acute kidney failure, unspecified; N18.5 - Chronic kidney disease, stage 5 - Plan Assessment And Plan: Acute kidney injury secondary due to cardiorenal Syndrome will order renal US and UPC HTN will increase Nifidipine to 90mg daily CHF Hx of CABG will reduce lasix to 10mg/hr
[2018-05-29] MEDS ORDERED: NIFEDIPINE XL 30 MG TABLET PO ONE (12:15)
--- NOTE | 2018-05-29 14:20 | RAD REPORT ---
EXAM DESCRIPTION: US - Renal Ultrasound-Complete - 05/29/2018 1:44 pm CLINICAL HISTORY: Acute kidney injury COMPARISON: CT study November 2017, CT study May 2012 FINDINGS: The right kidney measures 12.1 x 4.0 x 5.4 cm. The left kidney measures 10.9 x 5.5 x 4.3 cm. Cortical thickness is normal. There is increased cortical echogenicity indicating underlying medi marilin renal disease. No hydronephrosis or suspicious renal mass. In the upper pole left kidney there is a partially exophytic 9 mm hypoechoic mass. This is believed to be a small incidental cyst. The 2012 CT study showed a 9 millimeter cyst in this location. No bladder wall thickening or mass. No intraluminal stone or mass. IMPRESSION: Underlying medical renal disease is evident in each kidney but no cortical thinning, jah picious mass or hydronephrosis. A small 9 mm cyst is present upper pole left kidney stable back to 2013.
[2018-05-29] MEDS: CODEINE 30MG/APAP 300MG TAB PO PRN (19:35)
[2018-05-29] MEDS: ATORVASTATIN 40 MG TAB PO SCH (20:32)
[2018-05-29] MEDS: GABAPENTIN 300 MG CAP PO SCH (20:32)
[2018-05-29] MEDS: TRAZODONE 50 MG TABLET PO SCH (20:32)
[2018-05-30] MEDS: FUROSEMIDE 100 MG in NA CHLORIDE 0.9% 90 ML IV SCH (02:26)
[2018-05-30 05:12] LABS: Urine Protein/Creatinine Ratio 3.14 ratio (<0.15)
[2018-05-30 05:18] LABS: Absolute Lymphocytes (CBC) 2.2 K/uL (0.7-4.9); Absolute Monocytes 0.4 K/uL (0.1-1.3); Absolute Neutrophil 2.7 K/uL (1.8-8.0); Basophils % 1.5 % (0-1.3); Eosinophils % 2.6 % (0-4.4); Hematocrit 34.6 % (36.0-45.0); Lymphocytes % 39.4 % (15.3-44.8); MPV 8.4 fL (7.6-11.3); Monocytes % 7.7 % (3.3-12.3); RBC Red Blood Cell Count 4.33 M/uL (3.86-4.86)
[2018-05-30 05:42] LABS: Albumin 2.9 g/dL (3.4-5.0); Bilirubin Total 0.4 mg/dL (0.2-1.0); Phosphorus 4.8 mg/dL (2.5-4.9); Potassium 3.8 mmol/L (3.5-5.1)
[2018-05-30] MEDS: INSULIN -REGULAR HUMAN 50 UNIT/0.5 ML ML SQ SCH ×4 (08:35→20:30)
[2018-05-30] MEDS: METOLAZONE 5 MG TABLET PO SCH (08:36)
[2018-05-30] MEDS: ENOXAPARIN 30 MG/0.3 ML SQ SCH (08:36)
[2018-05-30] MEDS: NICOTINE 21 MG/PAT TD SCH (08:36)
[2018-05-30] MEDS: FERROUS SULFATE 325 MG TAB PO SCH ×2 (08:37→20:14)
[2018-05-30] MEDS: CARVEDILOL 12.5 MG TAB PO SCH (08:37)
[2018-05-30] MEDS: NIFEDIPINE XL 90 MG TABLET PO SCH (08:37)
[2018-05-30] MEDS: GABAPENTIN 100 MG CAP PO SCH ×2 (08:37→12:08)
[2018-05-30] MEDS: SPIRONOLACTONE 25 MG TABLET PO SCH (08:38)
[2018-05-30] MEDS: ISOSORBIDE MONO SR 30 MG TAB PO SCH (08:38)
[2018-05-30] MEDS: HYDRALAZINE HCL 25 MG TABLET PO SCH ×3 (08:38→20:13)
[2018-05-30] MEDS: CLOPIDOGREL 75 MG TABLET PO SCH (08:38)
--- NOTE | 2018-05-30 09:27 | P.PN ---
Subjective Date of Service: 05/30/18 Primary Care Provider: Dr Eng - Nephrology Chief Complaint: SOB Subjective: Tolerating diet, Ambulating, Improving, Working w/ PT, Doing well, Other (States she feels achy all over the body today.) Review of Systems 10-point ROS is otherwise unremarkable Physical Examination - Vital Signs Temperature: 97.5 F Blood Pressure: 144/65 Pulse: 65 Respirations: 18 Pulse Ox (%): 85 - Physical Exam General: Alert, In no apparent distress HEENT: Atraumatic, PERRLA, EOMI Neck: Supple, JVD not distended Respiratory: Clear to auscultation bilaterally, Normal air movement Cardiovascular: Regular rate/rhythm, Normal S1 S2 Gastrointestinal: Normal bowel sounds, No tenderness Musculoskeletal: No tenderness Integumentary: No rashes Neurological: Normal speech, Normal tone, Normal affect Lymphatics: No axilla or inguinal lymphadenopathy - Studies Laboratory Data (last 24 hrs) 05/30/18 04:55: WBC 5.6, Hgb 11.4 L, Hct 34.6 L, Plt Count 170 05/30/18 04:55: Sodium 136, Potassium 3.8, BUN 62 H, Creatinine 2.46 H, Glucose 213 H, Phosphorus 4.8, Total Bilirubin 0.4, AST 17, ALT 22, Alkaline Phosphatase 155 H Medications List Reviewed: Yes Assessment And Plan - Current Problems (Diagnosis) (1) Volume overload Current Visit: Yes Status: Acute Plan: Acute on Chronic Volume overload with recent weight gain of 10lbs, BL LE 3+ swelling, Generalized Anasarca, and abdominal Distention most likely 2.2 to Kidney failure. Improving today -DC lasix ggt today. Restarted on Home medication of Bumex and Torsemide -Nephrology and cardiology consulted. -Low NA and Fluid restriction -Daily I &O's and weight Qualifiers: Hypervolemia type: other Qualified Code(s): E87.79 - Other fluid overload (2) Anasarca Onset Date: 10/03/17 Current Visit: No Status: Acute Plan: See # 1 (3) Acute on chronic diastolic CHF (congestive heart failure) Onset Date: 03/17/18 Current Visit: No Status: Acute Plan: Acute on chronic Diastolic CHF -DC Lasix ggt now. Weight is 171 lbs today. Restarted on Home medication now -ECHO in February 2018 with WNL EF and Decreased Ventricular Compliance (4) [id number] kidney injury Onset Date: 09/09/16 Current Visit: No Status: Acute Plan: Acute on Chronic KI stage 5. Pt is still making urine. -ALLAN acharya today -Nephrology consulted. Qualifiers: Acute renal failure type: unspecified Chronic kidney disease stage: stage 5 , not on chronic dialysis Qualified Code(s): N17.9 - Acute kidney failure, unspecified; N18.5 - Chronic kidney disease, stage 5 (5) CAD (coronary artery disease) Onset Date: 10/03/17 Current Visit: No Status: Chronic Qualifiers: Coronary Disease-Associated Artery/Lesion type: [place] artery [place] vs. transplanted heart: [place] heart Associated angina: with stable angina Qualified Code(s): I25.118 - Atherosclerotic heart disease of [place] coronary artery with other forms of angina pectoris (6) COPD (chronic obstructive pulmonary disease) Onset Date: 02/04/17 Current Visit: No Status: Chronic Qualifiers: COPD type: chronic bronchitis Chronic bronchitis type: mucopurulent Qualified Code(s): J41.1 - Mucopurulent chronic bronchitis (7) Diabetes mellitus Onset Date: 04/28/15 Current Visit: No Status: Chronic (8) GERD (gastroesophageal reflux disease) Onset Date: 10/03/17 Current Visit: No Status: Chronic Qualifiers: Esophagitis presence: without esophagitis Qualified Code(s): K21.9 - Gastro -esophageal reflux disease without esophagitis (9) Hyperlipidemia Onset Date: 10/03/17 Current Visit: No Status: Chronic Qualifiers: Hyperlipidemia type: mixed hyperlipidemia Qualified Code(s): E78.2 - Mixed hyperlipidemia (10) Hypertension Current Visit: No Status: Chronic Qualifiers: Hypertension type: essential hypertension (11) Tobacco abuse Onset Date: 02/04/17 Current Visit: No Status: Chronic - Plan Awaiting Clinical Improvement. ALLAN jung ggt today Discharge Plan: Home Plan to discharge in: 48 Hours - Code Status/Comfort Care Code Status Assessed: Yes Critical Care: No
[2018-05-30] MEDS ORDERED: FUROSEMIDE 40 MG TABLET PO SCH (10:00)
[2018-05-30] MEDS ORDERED: ALBUMIN HUMAN 25% 100 ML IV SCH (15:00)
--- NOTE | 2018-05-30 18:49 | PN ---
Date of Progress Note: 05/30/2018 Subjective: The patient feeling better. The patient was diuresed very well, switched from Lasix drip to p.o. Physical Examination: Vital Signs: Blood pressure 163/73, pulse of 63. Chest: Faint crackles on the base. Heart: S1, S2. Regular. Abdomen: Soft, nontender. Extremities: +2 edema. Laboratory Data: H and H 11.4/34.6. Sodium 136, potassium 3.8, bicarb 33, BUN 62, creatinine 2.4. GFR of 20. Calcium 8.4, phosphorus 4.8. Current Medications: The patient on include: 1. Nicotine. 2. Lovenox. 3. Plavix. 4. Atorvastatin. 5. Carvedilol. 6. Metolazone. 7. Nifedipine 90. 8. Spironolactone. 9. Gabapentin. Assessment And Plan: 1. Acute kidney injury secondary to cardiorenal, on the recovery phase. I am going to try to use albumin to mobilize fluid. We will replace the Lasix to establish better volume control. 2. Hypertension, better control. I am going to go ahead and increase carvedilol to 25 mg and we will follow up. 3. Anasarca secondary to cardiorenal. Continue diuresis. We will switch to IV Lasix. Continue metolazone. GAMA Voice ID: [id number] Report ID: [id number] MTDD
[2018-05-30] MEDS: CARVEDILOL 25 MG TAB PO SCH (20:13)
[2018-05-30] MEDS: CODEINE 30MG/APAP 300MG TAB PO PRN (20:13)
[2018-05-30] MEDS: ALBUMIN HUMAN 25% 100 ML IV SCH (20:14)
[2018-05-30] MEDS: ATORVASTATIN 40 MG TAB PO SCH (20:14)
[2018-05-30] MEDS: GABAPENTIN 300 MG CAP PO SCH (20:14)
[2018-05-30] MEDS: TRAZODONE 50 MG TABLET PO SCH (20:30)
[2018-05-30] MEDS ORDERED: BUMETANIDE 2 MG PO SCH (21:00)
[2018-05-30] MEDS ORDERED: TORSEMIDE 20 MG TAB PO SCH (21:00)
[2018-05-30] MEDS: FUROSEMIDE 40 MG/4 ML VIAL IV SCH (21:36)
[2018-05-31] MEDS ORDERED: CODEINE 30MG/APAP 300MG TAB PO PRN (02:09)
[2018-05-31 05:29] LABS: Absolute Lymphocytes (CBC) 2.4 K/uL (0.7-4.9); Absolute Monocytes 0.4 K/uL (0.1-1.3); Absolute Neutrophil 2.9 K/uL (1.8-8.0); Basophils % 0.8 % (0-1.3); Eosinophils % 2.7 % (0-4.4); Hematocrit 32.8 % (36.0-45.0); Lymphocytes % 40.4 % (15.3-44.8); MPV 8.5 fL (7.6-11.3); Monocytes % 7.4 % (3.3-12.3); RBC Red Blood Cell Count 4.08 M/uL (3.86-4.86)
[2018-05-31 05:57] LABS: Albumin 2.9 g/dL (3.4-5.0); Bilirubin Total 0.3 mg/dL (0.2-1.0); Phosphorus 4.2 mg/dL (2.5-4.9); Potassium 3.9 mmol/L (3.5-5.1); Protein, Total 6.8 g/dL (6.4-8.2)
[2018-05-31 06:34] VITALS: BMI 26.9
[2018-05-31] MEDS: INSULIN -REGULAR HUMAN 50 UNIT/0.5 ML ML SQ SCH ×3 (07:30→16:38)
[2018-05-31] MEDS: ALBUMIN HUMAN 25% 100 ML IV SCH (08:42)
[2018-05-31] MEDS: ENOXAPARIN 30 MG/0.3 ML SQ SCH (08:42)
[2018-05-31] MEDS: NICOTINE 21 MG/PAT TD SCH (08:42)
[2018-05-31] MEDS: SPIRONOLACTONE 25 MG TABLET PO SCH (08:43)
[2018-05-31] MEDS: FERROUS SULFATE 325 MG TAB PO SCH (08:44)
[2018-05-31] MEDS: GABAPENTIN 100 MG CAP PO SCH ×2 (08:44→12:07)
[2018-05-31] MEDS: METOLAZONE 5 MG TABLET PO SCH (08:44)
[2018-05-31] MEDS: ISOSORBIDE MONO SR 30 MG TAB PO SCH (08:44)
[2018-05-31] MEDS: CLOPIDOGREL 75 MG TABLET PO SCH (08:44)
[2018-05-31] MEDS: CARVEDILOL 25 MG TAB PO SCH (08:46)
[2018-05-31] MEDS: NIFEDIPINE XL 90 MG TABLET PO SCH (08:46)
[2018-05-31] MEDS: HYDRALAZINE HCL 25 MG TABLET PO SCH ×2 (08:47→13:43)
[2018-05-31] MEDS ORDERED: FUROSEMIDE 40 MG TABLET PO SCH (09:00)
[2018-05-31] MEDS: FUROSEMIDE 40 MG/4 ML VIAL IV SCH (10:15)
--- NOTE | 2018-05-31 13:10 | P.DS ---
Admission Date: 05/26/18 Discharge Date: 05/31/18 Primary Care Provider: Dr Eng - Nephrology Disposition: ROUTINE DISCHARGE Discharge Condition: GOOD Reason for Admission: SOB - Problems (1) Volume overload Current Visit: Yes Status: Acute Qualifiers: Hypervolemia type: other Qualified Code(s): E87.79 - Other fluid overload (2) Anasarca Onset Date: 10/03/17 Current Visit: No Status: Acute (3) Acute on chronic diastolic CHF (congestive heart failure) Onset Date: 03/17/18 Current Visit: No Status: Acute (4) Ghkfc-xu-[id number] kidney injury Onset Date: 09/09/16 Current Visit: No Status: Acute Qualifiers: Acute renal failure type: unspecified Chronic kidney disease stage: stage 5 , not on chronic dialysis Qualified Code(s): N17.9 - Acute kidney failure, unspecified; N18.5 - Chronic kidney disease, stage 5 (5) CAD (coronary artery disease) Onset Date: 10/03/17 Current Visit: No Status: Chronic Qualifiers: Coronary Disease-Associated Artery/Lesion type: [place] artery [place] vs. transplanted heart: [place] heart Associated angina: with stable angina Qualified Code(s): I25.118 - Atherosclerotic heart disease of [place] coronary artery with other forms of angina pectoris (6) COPD (chronic obstructive pulmonary disease) Onset Date: 02/04/17 Current Visit: No Status: Chronic Qualifiers: COPD type: chronic bronchitis Chronic bronchitis type: mucopurulent Qualified Code(s): J41.1 - Mucopurulent chronic bronchitis (7) Diabetes mellitus Onset Date: 04/28/15 Current Visit: No Status: Chronic (8) GERD (gastroesophageal reflux disease) Onset Date: 10/03/17 Current Visit: No Status: Chronic Qualifiers: Esophagitis presence: without esophagitis Qualified Code(s): K21.9 - Gastro -esophageal reflux disease without esophagitis (9) Hyperlipidemia Onset Date: 10/03/17 Current Visit: No Status: Chronic Qualifiers: Hyperlipidemia type: mixed hyperlipidemia Qualified Code(s): E78.2 - Mixed hyperlipidemia (10) Hypertension Current Visit: No Status: Chronic Qualifiers: Hypertension type: essential hypertension (11) Tobacco abuse Onset Date: 02/04/17 Current Visit: No Status: Chronic Brief History of Present Illness: Ms Priest is a 63 years old woman with multiple medical problems including IDDM, CKD, COPD, HTN, CAD s/p CABG x 4 in 05/17 who was admitted to the hospital directly from Nephrology clinic for LE edema, generalized anasarca and SOB. Pt has been having multiple admission in the past for the similar symptoms. She states that she started feeling worse for past couple of days. When she was seen in the nephrology clinic she was told to come to the hospital for lasix ggt. Pt has gained over 10lbs over the last week. She has been having generalized pain in the abdomen and legs due to the swelling. Hospital Course: Overall during the hospital stay patient remained stable Patient was initially admitted to the hospital for volume overload most likely secondary to acute CHF versus kidney disease. Patient was started on Lasix drip while here in the hospital. Was consulted. Who agreed with the plan. Patient had marked improvement in her symptoms. Patient's initial weight on admission was 188 lb which was down to 131.3 lb today. Patient was switched over to oral Lasix since yesterday as there was marked improvement in her symptoms and patient was diuresed adequately. Patient did well overall and thus was discharged home today with prescription for Lasix twice daily. Patient was also asked to follow up with nephrology in about 1-2 days post discharge. Patient was also asked to be on the low sodium diet along with fluid restriction. Patient does have history of noncompliance with medication and does continue to smoke despite extensive education. Patient again was educated extensively on smoking and low-sodium and appropriate diet for her heart failure. Patient demonstrated understanding and thus was discharged home under stable condition. Patient's home medication of Bumex and Torsemide was discontinue when patient was only continued on Lasix. Vital Signs/Physical Exam: Temp Pulse Resp BP Pulse Ox 97.1 F 94 H 18 172/76 H 88 L 05/31/18 12:00 05/31/18 12:00 05/31/18 12:00 05/31/18 12:05/31/18 12:00 General: Alert, In no apparent distress HEENT: Atraumatic, PERRLA, EOMI Neck: Supple, JVD not distended Respiratory: Clear to auscultation bilaterally, Normal air movement Cardiovascular: Regular rate/rhythm, Normal S1 S2 Gastrointestinal: Normal bowel sounds, No tenderness Musculoskeletal: No tenderness Integumentary: No rashes Neurological: Normal speech, Normal tone, Normal affect Lymphatics: No axilla or inguinal lymphadenopathy Laboratory Data at Discharge: WBC 5.9 K/uL (4.3-10.9) 05/31/18 04:46 Hgb 10.6 g/dL (12.0-15.0) L 05/31/18 04:46 Hct 32.8 % (36.0-45.0) L 05/31/18 04:46 Plt Count 157 K/uL (152-406) 05/31/18 04:46 Sodium 136 mmol/L (136-145) 05/31/18 04:46 Potassium 3.9 mmol/L (3.5-5.1) 05/31/18 04:46 BUN 67 mg/dL (7-18) H 05/31/18 04:46 Creatinine 2.61 mg/dL (0.55-1.3) H 05/31/18 04:46 Glucose 198 mg/dL (74-106) H 05/31/18 04:46 Phosphorus 4.2 mg/dL (2.5-4.9) 05/31/18 04:46 Magnesium 2.0 mg/dL (1.8-2.4) 05/26/18 17:15 Total Bilirubin 0.3 mg/dL (0.2-1.0) 05/31/18 04:46 AST 25 U/L (15-37) 05/31/18 04:46 ALT 24 U/L (12-78) 05/31/18 04:46 Alkaline Phosphatase 147 U/L (45-117) H 05/31/18 04:46 Home Medications: RX: Acetaminophen with Codeine [Acetaminophen-Cod #3 Tablet] 1 tab PO BIDP PRN 05/26/18 RX: Atorvastatin Calcium [Lipitor] 40 mg PO DAILY 05/26/18 RX: Carvedilol 12.5 mg PO BID 05/26/18 RX: Clopidogrel Bisulfate [Plavix*] 75 mg PO DAILY 05/26/18 RX: Ferrous Sulfate 325 mg PO BID 05/26/18 RX: Fluticasone [Flovent Hfa 110*] 2 puff IH DAILYPRN PRN 05/26/18 RX: Gabapentin 100 mg PO TID* 05/26/18 RX: Hydralazine [Apresoline*] 50 mg PO TID 05/26/18 RX: Insulin Detemir [Levemir Flextouch] 10 unit SQ DAILY 05/26/18 RX: Isosorbide Mononitrate [Isosorbide Mononitrate ER] 30 mg PO DAILY 05/26/18 RX: Nifedipine [Nifedipine ER] 60 mg PO DAILY 05/26/18 RX: Trazodone [Desyrel*] 50 mg PO BEDTIME 05/26/18 RX: buPROPion HCl [Bupropion HCl] 75 mg PO DAILY 05/26/18 Furosemide [Lasix] 40 mg PO BIDL #60 tab 05/31/18 New Medications: Furosemide [Lasix] 40 mg PO BIDL #60 tab Diet: Regular Activity: Ad shira Followup: Sharri Fernando MD [ACTIVE - CAN ADMIT] - 1-2 Weeks
--- NOTE | 2018-05-31 15:26 | PN ---
Date of Progress Note: 05/31/2018 Subjective: The patient doing well. Unfortunately, the patient poor compliant with the fluid restriction and low-salt diet. The patient eating from food outside. I saw her with using meals with salt. Seen by other staff member drinking more than 3 bottles of Coke on a daily basis. Physical Examination: Vital Signs: Blood pressure 123/59, pulse of 62. The patient still has very good urine output. Chest: Clear to auscultation. Heart: S1, S2. Regular. Abdomen: Soft and nontender. Extremities: Trace edema. As weight [place], the patient down to 171. The patient lost 18 pounds from admission. Current Medications: The patient on its: 1. Metolazone 5 mg daily. 2. Spironolactone 25 mg daily. 3. Carvedilol 12.5 b.i.d. 4. Plavix. 5. Albumin. 6. Lovenox 30 subcu. 7. Ferrous sulfate. 8. Atorvastatin. 9. Hydralazine 100 t.i.d. 10. Isosorbide. 11. Nifedipine 90 daily. 12. Lasix 40 IV t.i.d. 13. Gabapentin. Assessment And Plan: 1. Acute kidney injury secondary to cardiorenal, recovered, plateaued. Looked to me started to being euvolemic. I will discontinue metolazone, discontinue Aldactone and place the patient on Lasix oral 40 b.i.d. The patient is going to be cleared from the renal standpoint for discharge planning. 2. Anasarca secondary to cardiorenal, poor compliant with fluid and low-salt diet. Reinforced for the patient for low-salt diet and fluid restriction. We elaborate on the patient that the patient is going to be bounce back if she continues to do what she is doing right now. We will switch the medication as above. The patient is going to be cleared from the renal standpoint for discharge planning. 3. Hypokalemia, recovered, resolved. 4. Hypertension, controlled, optimal. Discontinue metolazone, discontinue spironolactone. Continue Lasix 40 mg b.i.d. GAMA Voice ID: [id number] Report ID: [id number]
[2018-05-31 16:34] VITALS: BP 134/59; TEMP 98.6
[2018-05-31 16:59] VITALS: O2SAT 88
[2018-05-31] MEDS ORDERED: FUROSEMIDE 40 MG/4 ML VIAL IV SCH (21:00)
== END 2018-05-31 18:15 | disposition home or self-care (01) | DRG 291 ==
LOC: 4TH 15:00
PROVIDERS: ADMIT Family Medicine; ATTEND Family Medicine
DX: I13.2 Hypertensive heart and chronic kidney disease with heart failure and with stage 5 chronic kidney disease, or end stage renal disease (principal); I50.33 Acute on chronic diastolic (congestive) heart failure; N18.5 Chronic kidney disease, stage 5; N17.9 Acute kidney failure, unspecified; Z88.6 Allergy status to analgesic agent; Z88.1 Allergy status to other antibiotic agents; Z88.5 Allergy status to narcotic agent; Z95.1 Presence of aortocoronary bypass graft; Z87.891 Personal history of nicotine dependence; K21.9 Gastro-esophageal reflux disease without esophagitis; G47.33 Obstructive sleep apnea (adult) (pediatric); E87.79 Other fluid overload; E11.22 Type 2 diabetes mellitus with diabetic chronic kidney disease; I25.118 Atherosclerotic heart disease of native coronary artery with other forms of angina pectoris; E78.2 Mixed hyperlipidemia; R77.9 Abnormality of plasma protein, unspecified; I25.2 Old myocardial infarction; F17.210 Nicotine dependence, cigarettes, uncomplicated; J41.1 Mucopurulent chronic bronchitis; Z91.14 Patient's other noncompliance with medication regimen; E87.6 Hypokalemia
CPT/HCPCS: 36415; 71046; 76770; 80048; 80053; 80069; 81003; 81015; 82570; 82962; 83735; 84100; 84156; 84439; 84443; 85025; G0008; J1650; J1940; J2405; P9047; Q2035

== ENCOUNTER 2018-08-10 13:52 | Inpatient (IN) | payer MEDICAID ==
--- OUTSIDE RECORDS SUMMARY | 2018-08-10 14:16 | XMS REPORT | Clinical Summary ---
:1955 Author Organization [facility] Address [address] [place] [address] Care Team Providers Name Role Phone Adrianna [...] mg by 0 Active tablet mouth daily. albuterol-ipratro Inhale 2 puffs by 4 g [...] tablet needed. Max Daily Amount: 4 tablets melatonin 3 mg Take 1 tablet (3 30 tablet 0 09/03/19 Discontinued Tab tablet mg total) by mouth 8 18 nightly. acetaminophen Take 2 tablets 30 tablet 0 05/27/19 (TYLENOL) 325 MG (650 mg total) by 8 19 tablet mouth every 6 (six) hours as needed for Pain for up to 360 days. collagenase Apply topically 15 g 0 09/03/19 Discontinued (SANTYL) 250 daily. 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 05/19/2017 Overview: RLE PVD Acute CHF 05/14/2017 COPD (chronic obstructive pulmonary disease) 05/14/2017 Controlled type 2 diabetes mellitus with circulatory disorder, with 05/14/2017 long-term current use of insulin Smoker 05/14/2017 Frequent PVCs 05/12/2017 Encounters Date Type Specialty Care Team Description 09/11/2017 Refill Cardiology Alex Juarez MD 09/02/2017 - Emergency Cardiology Catarino Leon S/P femoral-popliteal bypass surgery (Primary Dx); 09/05/2017 MD Ac Hyperlipidemia, unspecified hyperlipidemia type; Karlie Mckeon PVD (peripheral vascular disease) with claudication ( [facility]); MD Edgra Chronic diastolic CHF (congestive heart failure) ([facility]); Maribeth Oliveros Chronic kidney disease, stage 3; MD Mariza Acute on chronic diastolic congestive heart failure ([facility]); Coronary artery disease involving [place] coronary artery of [place] heart without angina pectoris; Controlled type 2 diabetes mellitus with diabetic peripheral angiopathy without gangrene, with long-term current use of insulin ([facility]); Chronic obstructive pulmonary disease, unspecified COPD type ([facility]); S/P CABG (coronary artery bypass graft); ARTURO (acute kidney injury) ([facility]); Smoker 09/02/2017 Office Visit Cardiology Jean Monroe NP Pain and swelling of lower leg, right (Primary Dx); Acute on chronic diastolic (congestive) heart failure ([facility]); S/P femoral-popliteal bypass surgery 08/05/2017 - Hospital Encounter Cardiology Mariela Ramirez PVD ( peripheral vascular disease) ([facility]); 08/09/2017 MD Chelsea Controlled type 2 diabetes mellitus with complication, without long-term current use of insulin ([facility]); Chronic obstructive pulmonary disease, unspecified COPD type ([facility]); PVD (peripheral vascular disease) with claudication ([facility]) after 08/09/2017 Family History Medical History Relation Name Comments [...] 09/05/2017 8:08 AM CDT Plan of Treatment Not on file Implants Implanted Type Area Manager Urgent Care Device Shelf Model / Identifier Expiration Serial / Date Lot Device Clsr Angio-Seal Vip 8fr [id number] - [id number] Cardiovascular N/A: [facility] 01/28/2018 [id number] / Implanted: Qty: 1 on 05/12/2017 by Sandra Gaytan MD Groin MED:CARDIAC / SURG [id number] Grft Eptfe-Heparin Rng [id number] - [id number] Graft/Patch Right: [employer] GORE & 04/09/2021 [id number] / Implanted: Qty: 1 on 08/05/2017 by Mariela Ramirez MD Leg ASSC:MED PRDT [id number] / N/A Procedures Procedure Name Priority Date/Time Associated Comments Diagnosis RHYTHM STRIP - SCAN 07/14/2018 9:01 AM CDT RHYTHM STRIP - SCAN 09/08/2017 3:04 PM [...] are in the results section. LACTIC ACID, VENOUS Routine 09/05/2017 5:27 Results for this AM [...] 472 ms QTC Calculation(Bazett) 490 ms P Jay Em 91 degrees R Jay Em 1 degrees T Jay Em 133 degrees Normal sinus rhythm Possible Left [...] 448 ms QTC Calculation(Bazett) 473 ms P Jay Em 88 degrees R Jay Em 25 degrees T Jay Em 139 degrees Normal sinus rhythm Possible Left [...] CDT procedure are in the results section. after 08/09/2017 Results RHYTHM STRIP - SCAN (07/14/2018 9:01 AM CDT)Only the most recent of3 resultswithin the time period is included. Narrative Performed At POC-Glucose meter (09/05/2017 5:05 PM CDT)Only the most recent of14 resultswithin the time period is included. POC-Glucose Meter 220 (H)Comment: TESTED AT 70 - 110 mg/dL [facility] [address] [facility] [address] Specimen Blood Performing Organization Address City/State/Zipcode Phone Number [address] [address] CENTER ECHOCARDIOGRAM REPORT - SCAN (09/05/2017 3:50 PM CDT) Narrative Performed At Basic Metabolic Panel (09/05/2017 3:14 PM CDT)Only the most recent of7 resultswithin the time period is included. Sodium 135 (L) 136 - 145 meq/L [facility] Potassium 4.8 3.5 - 5.1 meq/L [facility] Chloride 102 98 - 107 meq/L [facility] CO2 25 22 - 29 meq/L [facility] BUN 51 (H) 7 - 21 mg/dL [facility] Creatinine 1.99 (H) 0.57 - 1.25 mg/dL [facility] Glucose 201 (H) 70 - 105 mg/dL [facility] Calcium 8.8 8.4 - 10.2 mg/dL [facility] EGFR 25Comment: ESTIMATED GFR IS mL/min/1.73 sq m [facility] NOT ACCURATE CREATININE [facility] CENTER CLEARANCE IN PREDICTING GLOMERULAR FILTRATION RATE. ESTIMATED GFR IS NOT APPLICABLE FOR DIALYSIS PATIENTS. Specimen Blood Performing Organization Address City/State/Zipcode Phone Number [facility] [address] [place] [address] CENTER 2D Echo W/Doppler(CW/PW/Color) (09/05/2017 11:25 AM CDT) Ejection Fraction [facility] Specimen Narrative Performed At Transthoracic Echocardiography Report (TTE) [facility] Demographics Patient NamePENAARIELLEKIEDate of Study09/05/2017 BETO Female Visit [id number] Room [id number] Number Date of 1955Referring Olivia Chang MD 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 62 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 Leighton Morochoerprehermelinda Del Castillo MD Physician Procedure Type of [...] Study 09/05/2017 BETO Gender Female Visit Number [id number] Race Room Number 1047 Number Date of 1955 Referring Physician Kelly Chang MD Age 62 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 Calcium, Ion 1.11 (L) 1.12 - 1.27 mmol/L [facility] pH, Blood 7.40 [facility] Specimen Blood Performing Organization Address City/[facility] Cent[facility]ode Phone Number [facility] [address] [place] [address] [phone] CENTER CBC with platelet count + automated diff (09/05/2017 5:27 AM CDT)Only the most recent of5 resultswithin the time period is included. WBC 7.1 3.5 - 10.5 K/L [facility] RBC 3.68 (L) 3.93 - 5.22 M/L [facility] Hemoglobin 9.0 (L) 11.2 - 15.7 GM/DL [facility] Hematocrit 29.6 (L) 34.1 - 44.9 % [facility] MCV 80.4 79.4 - 94.[address] [facility] MCH 24.5 (L) 25.6 - 32.[address] [facility] MCHC 30.4 (L) 32.2 - 35.5 GM/DL [facility] RDW 16.5 (H) 11.7 - 14.4 % [facility] Platelets 215 150 - 450 K/CU MM [facility] MPV 9.5 9.4 - 12.[address] [facility] nRBC 0 0 - 0 /[address] [facility] % Neutros 42 % [facility] % Lymphs 46 % [facility] % Monos 6 % [facility] % Eos 5 % [facility] % Baso 1 % [facility] # Neutros 2.96 1.56 - 6.13 K/L [facility] # Lymphs 3.27 1.18 - 3.74 K/L [facility] # Monos 0.41 (H) 0.24 - 0.36 K/L [facility] # Eos 0.34 0.04 - 0.36 K/L [facility] # Baso 0.08 0.01 - 0.08 K/L [facility] Immature Granulocytes-Relative 0 0 - 1 % [facility] Specimen Blood Performing Organization Address City/[facility] Cancer Centercode Phone Number [address] [address] [phone] [place] Lactic acid, venous, whole blood (09/05/2017 5:27 AM CDT) Lactate, Venous 0.8 0.5 - 2.2 mmol/L [facility] Specimen Blood Narrative Performed At [facility] Effective 08/02/2015: Units/Reference Range Change New: 0.5-2.2 mmol/LPrevious: 5-20 mg/dL Performing Organization Address City/[facility] Centercode Phone Number [address] [address] CENTER Phosphorus (09/05/2017 5:27 AM CDT)Only the most recent of3 resultswithin the time period is included. Phosphorus 5.1 (H) 2.3 - 4.7 mg/dL [facility] Specimen Blood Performing Organization Address City/State/Zipcode Phone Number [facility] [address] [place] [address] CENTER Magnesium (09/05/2017 5:27 AM CDT)Only the most recent of4 resultswithin the time period is included. Magnesium 2.0 1.6 - 2.6 mg/dL [facility] Specimen Blood Performing Organization Address City/State/Zipcode Phone Number [facility] [address] [place] [address] CENTER XR sacrum and coccyx 3 views min (09/04/2017 9:06 PM CDT) Specimen Narrative Performed At FINAL REPORT GE RIS [...] MD Report Verified Date/Time:09/04/2017 21:22:03 Reading Location: [address] Transitional Reading Room Procedure Note Interface, [...] Report Verified Date/Time: 09/04/2017 21:22:03 Reading Location: [address] Transitional Reading Room Performing Organization Address City/[facility] Centercode Phone Number [employer] PERIPHERAL VASCULAR REPORT - SCAN (09/04/2017 7:20 AM CDT)Only the most recent of2 resultswithin the time period is included. Narrative Performed At Creatine Kinase (CK) (09/04/2017 4:18 AM CDT) Total CK 45 29 - 200 U/L [facility] Specimen Blood Performing Organization Address [facility] Cancer Centercode Phone Number [address] [address] CENTER Protein, random urine (09/03/2017 7:17 PM CDT) Protein, Urine 102 (H) 0 - 14 mg/dL [facility] Specimen Urine Performing Organization Address [facility] Cancer Centercovt Phone Number [address] [address] [place] Creatinine, random urine (09/03/2017 7:17 PM CDT)Only the most recent of2 resultswithin the time period is included. Creatinine, Ur 16.1 mg/dL [facility] Specimen Urine Narrative Performed At [facility] Reference Range: No Normals Performing Organization Address [facility] Centercovt Phone Number [address] [address] [phone] [place] Arterial doppler leg, right (09/03/2017 5:30 PM CDT) Ejection [facility] Specimen Impressions Performed At Right Impression [facility] 1. The common femoral and profunda femoral [...] + + + + + + !Prox FULL TIME PARAMEDIC ! !62.9 !! ! + + + + + + !Mid FULL TIME PARAMEDIC ! !71.1 !! ! + + + + + + !Dist FULL TIME PARAMEDIC ! !61.3 !! ! 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 ! ! !toe amputation, S/P Right Fem-Pop Bypass ! ! ! [...] + + + -------+ + + !Prox FULL TIME PARAMEDIC ! !62.9 ! ! ! + + + -------+ + + !Mid FULL TIME PARAMEDIC ! !71.1 ! ! ! + + + -------+ + + !Dist FULL TIME PARAMEDIC ! !61.3 ! ! ! + + [...] + -------+ + + Performing Organization Address City/State/Zipcode Phone Number [facility] ECG 12 lead (09/03/2017 8:28 AM CDT)Only the most recent of2 resultswithin the time period is included. Specimen Narrative Performed At Ventricular Rate 65 BPM GE MUSE Atrial Rate 65 BPM P-R Interval 172 ms QRS Duration 104 ms Q-T Interval 472 ms QTC Calculation(Bazett) 490 ms P Jay Em 91 degrees R Jay Em 1 degrees T Jay Em 133 degrees Normal sinus rhythm Possible Left atrial enlargement Possible Anterior infarct (cited on or before 18-MAY-2017) ST & T wave abnormality, consider lateral ischemia Abnormal ECG When compared with ECG of 02-SEP-2017 22:48, No significant change was found Confirmed by MD POTTS JORGE ([id number]) on 09/04/2017 12:49:44 PM Procedure Note Interface, External Ris In - 09/04/2017 12:49 PM CDT Ventricular Rate 65 BPM Atrial Rate 65 BPM P-R Interval 172 ms QRS Duration 104 ms Q-T Interval 472 ms QTC Calculation(Bazett) 490 ms P Jay Em 91 degrees R Jay Em 1 degrees T Jay Em 133 degrees Normal sinus rhythm Possible Left atrial enlargement Possible Anterior infarct (cited on or before 18-MAY-2017) ST & T wave abnormality, consider lateral ischemia Abnormal ECG When compared with ECG of 02-SEP-2017 22:48, No significant change was found Confirmed by MD POTTS JORGE ([id number]) on 09/04/2017 12:49:44 PM Performing Organization Address [facility] Phone Number [employer] MUSE Troponin I (09/03/2017 4:35 AM CDT)Only the most recent of2 resultswithin the time period is included. Troponin I 0.05 (H) 0.00 - 0.03 ng/mL [facility] Specimen Blood Narrative Performed At [facility] Troponin I (TnI) levels must be interpreted [...] disease, and persistent tachyarrhythmia. Performing Organization Address [facility] Centercode Phone Number [place] [phone] [place], [place] [phone] [place] Hepatic function panel (09/03/2017 4:35 AM CDT) Protein, Total 6.8 6.0 - 8.3 gm/dL [facility] Albumin 2.9 (L) 3.5 - 5.0 g/dL [facility] Total Bilirubin 0.5 0.2 - 1.2 mg/dL [facility] Bilirubin, Direct 0.2 0.1 - 0.5 mg/dL [facility] Alkaline Phosphatase 173 (H) 40 - 150 U/L [facility] AST 25 5 - 34 U/L [facility] ALT 23 6 - 55 U/L [facility] Specimen Blood Performing Organization Address City/State/Zipcode Phone Number [facility] [address] [place], [place] [phone] [place] XR chest 1 view portable / bedside (09/02/2017 8:47 PM CDT) Specimen Narrative Performed At FINAL REPORT GE RIS RAD, CHEST, 1 VIEW, NON DEPT INDICATION: CHEST PAIN COMPARISON: Chest x-ray 4 weeks ago TECHNIQUE: Single frontal view of the chest. IMPRESSION: Cardiomegaly. Mild pulmonary interstitial edema with a small right-sided effusion. No acute osseous abnormality. Signed: Kristin Abraham MD Report Verified Date/Time:09/02/2017 21:42:11 Reading Location: [address] Transitional Reading Room Procedure Note Interface, [...] Report Verified Date/Time: 09/02/2017 21:42:11 Reading Location: [facility] [id number] Transitional Reading Room Performing Organization Address City/State/Zipcode Phone Number GE RIS Sodium, random urine (09/02/2017 8:43 PM CDT) Sodium Urine 80 meq/L [facility] Specimen Urine Narrative Performed At [facility] Reference Range: No Normals Performing Organization Address City/[facility]/Zipcode Phone Number [address] [address] CENTER Urinalysis w/Microscopic (09/02/2017 8:43 PM CDT) Color, UA Light Yellow [facility] Clarity, UA Clear [facility] Specific [place], UA 1.008 1.001 - 1.035 [facility] pH, UA 6.5 5.0 - 8.0 [facility] Protein, UA 200 mg/dL (A) Negative [facility] Glucose, UA 70 mg/dL (A) Negative [facility] Ketones, UA Negative Negative [facility] Bilirubin, UA Negative Negative [facility] Blood, UA Negative Negative [facility] Nitrite, UA Negative Negative [facility] Leukocytes, UA Negative Negative [facility] Urobilinogen, UA 0.2 0.2 - 1.0 mg/dL [facility] RBC, UA <1 /HPF [facility] WBC, UA 2 /HPF [facility] Bacteria, UA Occasional [facility] Mucus Rare [facility] Squam Epithel, UA 2 /HPF [facility] Hyaline Casts, UA 7 /LPF [facility] Specimen Source [facility] Specimen Urine Performing Organization Address City/State/Zipcode Phone Number [facility] [address] [place] [address] CENTER Venous doppler leg, right (09/02/2017 5:34 PM CDT) Ejection Fraction [facility] AlarisON [facility] Specimen Impressions Performed At Right Impression [facility] MetranomeESSON [facility] 1. There is no deep venous [...] are measured in cm Narrative Performed At PV LAB - Lower Extremities DVT Study [facility]ART[facility] GuardlyCKESSON [facility] Demographics Patient Name CHRISTY GREER Date of Study09/02/2017 BETO [id number] Age62 Visit Number [id number] Gender Female Accession Number [id number] Date of Birth1955 ReferringBeers Catarino Zimmerman NumberED8 Physician SonographBridgette Perez, [place] PhysicianMD, RPVI Procedure Type of Study: Veins: [...] Study 09/02/2017 BETO Age 62 Visit Number [id number] Gender Female Accession Number [id number] Date of 1955 Referring Edward Levi Room Number ED8 Physician Inspector [employer] Jose Cruz Peterson Interpreting Gurmeet Perez T [...] are measured in cm Performing Organization Address City/State/[facility] Centercovt Phone Number [facility] PT/aPTT (09/02/2017 4:15 PM CDT) Protime 14.4 11.7 - 14.[address] [facility] INR 1.1 [address]9 [facility] PTT 31.0 22.5 - 36.[address] [facility] Specimen Blood Narrative Performed At [facility] RECOMMENDED COUMADIN/WARFARIN INR THERAPY RANGES STANDARD DOSE: 2.0 - 3.0 Includes: PROPHYLAXIS for venous thrombosis, systemic embolization; TREATMENT for venous thrombosis and/or pulmonary embolus. HIGH RISK: Target INR is 2.5-3.5 for patients with mechanical heart valves. Performing Organization Address City/State/Zipcode Phone Number [facility] [address] [place] [address] CENTER B N P (09/02/2017 1:18 PM CDT) BNP 1,942 (H) 0 - 100 pg/mL [facility] Specimen Blood Performing Organization Address City/State/Zipcode Phone Number [facility] [address] [place], [place] [phone] CENTER after 08/09/2017 Insurance Payer Benefit Plan / Group Subscriber ID Type Phone Address [place]ID [place] xxxxxxxxx Advance Directives For more information, please contact:[address] [phone] Code Status Date Activated Date Inactivated Comments [...]
--- OUTSIDE RECORDS SUMMARY | 2018-08-10 14:22 | XMS REPORT ---
:1955 [facility] [address] [place] [address] Care Team Providers Name Role Phone CORINA [...] (BEAKER) (test 220 mg/dL 70-110 TESTED AT [facility] [address] [facility] xxgn=3688) [facility] [address] BASIC METABOLIC [id number] 15:47:00 Test Item Value Reference Range Comments SODIUM (BEAKER) (test 135 meq/L 136-145 unba=886) POTASSIUM (BEAKER) (test 4.8 meq/L 3.5-5.1 soph=253) CHLORIDE (BEAKER) (test 102 meq/L 98-107 efxe=492) CO2 (BEAKER) (test 25 meq/L 22-29 nban=064) BLOOD UREA NITROGEN 51 mg/dL 7-21 (BEAKER) (test gdtk=599) CREATININE (BEAKER) (test 1.99 mg/dL 0.57-1.25 fepk=362) GLUCOSE RANDOM (BEAKER) 201 mg/dL 70-105 (test zkad=730) CALCIUM (BEAKER) (test 8.8 mg/dL 8.4-10.2 swxw=224) EGFR (BEAKER) (test 25 mL/min/1.73 sq m ESTIMATED GFR IS NOT aujy=3849) ACCURATE CREATININE CLEARANCE IN PREDICTING GLOMERULAR FILTRATION RATE. ESTIMATED GFR IS NOT APPLICABLE FOR DIALYSIS PATIENTS. POCT-GLUCOSE [id number] 11:30:00 Test Item Value Reference Range Comments POC-GLUCOSE METER (BEAKER) 268 mg/dL 70-110 TESTED AT [facility] [address] [facility] (test uoia=3636) [facility] [address] POCT-GLUCOSE [id number] 07:08:00 Test Item Value Reference Range Comments POC-GLUCOSE METER (BEAKER) 208 mg/dL 70-110 TESTED AT [facility] [address] [facility] (test wncv=7997) [facility] [address] CALCIUM, [id number] 06:47:00 Test Item Value Reference Range Comments CALCIUM IONIZED (BEAKER) (test vcsj=721) 1.11 mmol/L 1.12-1.27 PH, BLOOD (BEAKER) (test qyti=1746) 7.40 BASIC METABOLIC [id number] 06:40:00 Test Item Value Reference Range Comments SODIUM (BEAKER) (test 134 meq/L 136-145 vhkc=778) POTASSIUM (BEAKER) (test 4.9 meq/L 3.5-5.1 dmmv=801) CHLORIDE (BEAKER) (test 103 meq/L 98-107 mxpm=881) CO2 (BEAKER) (test 24 meq/L 22-29 zxsj=571) BLOOD UREA NITROGEN 53 mg/dL 7-21 (BEAKER) (test pmhk=074) CREATININE (BEAKER) (test 2.02 mg/dL 0.57-1.25 resc=680) GLUCOSE RANDOM (BEAKER) 186 mg/dL 70-105 (test cmup=140) CALCIUM (BEAKER) (test 9.1 mg/dL 8.4-10.2 ylrz=213) EGFR (BEAKER) (test 25 mL/min/1.73 sq m ESTIMATED GFR IS NOT glah=2932) ACCURATE CREATININE CLEARANCE IN PREDICTING GLOMERULAR FILTRATION RATE. ESTIMATED GFR IS NOT APPLICABLE FOR DIALYSIS PATIENTS. [id number] 06:33:00 Test Item Value Reference Range Comments PHOSPHORUS (BEAKER) (test pzzm=654) 5.1 mg/dL 2.3-4.7 [id number] 06:33:00 Test Item Value Reference Range Comments MAGNESIUM (BEAKER) (test thdj=655) 2.0 mg/dL 1.6-2.6 LACTIC ACID, VENOUS, WHOLE [id number] 06:02:00 Test Item Value Reference Range Comments LACTATE BLOOD VENOUS (2) (BEAKER) (test 0.8 mmol/L 0.5-2.2 cxef=1482) Effective 08/02/2015: Units/Reference Range ChangeNew: 0.5-2.2 mmol/L Previous: 5 -20 mg/dLCBC W/PLT COUNT & AUTO [id number] 05:54:00 Test Item Value Reference Range Comments WHITE BLOOD CELL COUNT (BEAKER) (test zfum=090) 7.1 K/ L 3.5-10.5 RED BLOOD CELL COUNT (BEAKER) (test cnmw=885) 3.68 M/ L 3.93-5.22 HEMOGLOBIN (BEAKER) (test vwvd=854) 9.0 GM/DL 11.2-15.7 HEMATOCRIT (BEAKER) (test xszm=018) 29.6 % 34.1-44.9 MEAN CORPUSCULAR VOLUME (BEAKER) (test jarz=289) 80.4 fL 79.4-94.8 MEAN CORPUSCULAR HEMOGLOBIN (BEAKER) (test 24.5 pg 25.6-32.2 coem=795) MEAN CORPUSCULAR HEMOGLOBIN CONC (BEAKER) (test 30.4 GM/DL 32.2-35.5 wvtg=680) RED CELL DISTRIBUTION WIDTH (BEAKER) (test 16.5 % 11.7-14.4 tnjs=576) PLATELET COUNT (BEAKER) (test zssi=747) 215 K/CU MM 150-450 MEAN PLATELET VOLUME (BEAKER) (test gyxq=210) 9.5 fL 9.4-12.3 NUCLEATED RED BLOOD CELLS (BEAKER) (test 0 /100 WBC 0-0 osmn=995) NEUTROPHILS RELATIVE PERCENT (BEAKER) (test 42 % eoyp=395) LYMPHOCYTES RELATIVE PERCENT (BEAKER) (test 46 % njhv=565) MONOCYTES RELATIVE PERCENT (BEAKER) (test 6 % xgty=940) EOSINOPHILS RELATIVE PERCENT (BEAKER) (test 5 % lsoc=653) BASOPHILS RELATIVE PERCENT (BEAKER) (test 1 % lzff=830) NEUTROPHILS ABSOLUTE COUNT (BEAKER) (test 2.96 K/ L 1.56-6.13 uvjl=770) LYMPHOCYTES ABSOLUTE COUNT (BEAKER) (test 3.27 K/ L 1.18-3.74 jkbt=793) MONOCYTES ABSOLUTE COUNT (BEAKER) (test 0.41 K/ L 0.24-0.36 bokq=026) EOSINOPHILS ABSOLUTE COUNT (BEAKER) (test 0.34 K/ L 0.04-0.36 bkch=867) BASOPHILS ABSOLUTE COUNT (BEAKER) (test 0.08 K/ L 0.01-0.08 cwfj=698) IMMATURE GRANULOCYTES-RELATIVE PERCENT (BEAKER) 0 % 0-1 (test djbg=4821) POCT-GLUCOSE [id number] 21:30:00 Test Item Value Reference Range Comments POC-GLUCOSE METER (BEAKER) 248 mg/dL 70-110 TESTED AT [address] (test ntwk=9585) [facility] [address] RAD, [id number] 21:22:00Reason for exam:->fall, tailbone painFINAL REPORT RAD, [...] MDReport Verified Date/Time: 2017 21:22:03 Reading Location: [address] Reading Room POCT- GLUCOSE [id number] 17:37:00 Test Item Value Reference Range Comments POC-GLUCOSE METER (BEAKER) 222 mg/dL 70-110 TESTED AT [address] (test xmhh=5932) [facility] [address] POCT-GLUCOSE [id number] 13:55:00 Test Item Value Reference Range Comments POC-GLUCOSE METER (BEAKER) 194 mg/dL 70-110 TESTED AT [facility] [address] [facility] (test aqbl=3669) [facility] [address] POCT-GLUCOSE [id number] 12:34:00 Test Item Value Reference Range Comments POC-GLUCOSE METER (BEAKER) 229 mg/dL 70-110 TESTED AT [address] (test pfss=1678) [facility] [address] POCT-GLUCOSE [id number] 08:00:00 Test Item Value Reference Range Comments POC-GLUCOSE METER (BEAKER) 159 mg/dL 70-110 TESTED AT [address] (test djpr=9699) [facility] [address] CALCIUM, [id number] 06:00:00 Test Item Value Reference Range Comments CALCIUM IONIZED (BEAKER) (test qqqr=883) 1.05 mmol/L 1.12-1.27 PH, BLOOD (BEAKER) (test xuvt=9718) 7.45 [id number] 05:59:00 Test Item Value Reference Range Comments PHOSPHORUS (BEAKER) (test kboa=970) 4.8 mg/dL 2.3-4.7 [id number] 05:59:00 Test Item Value Reference Range Comments MAGNESIUM (BEAKER) (test tevm=929) 2.0 mg/dL 1.6-2.6 BASIC METABOLIC [id number] 05:59:00 Test Item Value Reference Range Comments SODIUM (BEAKER) (test 134 meq/L 136-145 axnj=079) POTASSIUM (BEAKER) (test 4.4 meq/L 3.5-5.1 hbgo=304) CHLORIDE (BEAKER) (test 103 meq/L 98-107 cnqd=226) CO2 (BEAKER) (test 23 meq/L 22-29 rxuo=325) BLOOD UREA NITROGEN 49 mg/dL 7-21 (BEAKER) (test zniq=390) CREATININE (BEAKER) (test 1.69 mg/dL 0.57-1.25 dveh=788) GLUCOSE RANDOM (BEAKER) 138 mg/dL 70-105 (test hfzu=798) CALCIUM (BEAKER) (test 8.7 mg/dL 8.4-10.2 wzuj=158) EGFR (BEAKER) (test 31 mL/min/1.73 sq m ESTIMATED GFR IS NOT cgbc=9692) ACCURATE CREATININE CLEARANCE IN PREDICTING GLOMERULAR FILTRATION RATE. ESTIMATED GFR IS NOT APPLICABLE FOR DIALYSIS PATIENTS. CREATINE KINASE (CK)2017-09-04 05:59:00 Test Item Value Reference Range Comments CREATINE KINASE TOTAL (BEAKER) (test prgw=945) 45 U/L 29-200 CBC W/PLT COUNT & AUTO [id number] 05:32:00 Test Item Value Reference Range Comments WHITE BLOOD CELL COUNT (BEAKER) (test ppfi=210) 6.1 K/ L 3.5-10.5 RED BLOOD CELL COUNT (BEAKER) (test tqvu=465) 3.69 M/ L 3.93-5.22 HEMOGLOBIN (BEAKER) (test pddc=623) 8.8 GM/DL 11.2-15.7 HEMATOCRIT (BEAKER) (test nywv=553) 29.3 % 34.1-44.9 MEAN CORPUSCULAR VOLUME (BEAKER) (test fade=167) 79.4 fL 79.4-94.8 MEAN CORPUSCULAR HEMOGLOBIN (BEAKER) (test 23.8 pg 25.6-32.2 vvaf=122) MEAN CORPUSCULAR HEMOGLOBIN CONC (BEAKER) (test 30.0 GM/DL 32.2-35.5 mgvj=919) RED CELL DISTRIBUTION WIDTH (BEAKER) (test 16.3 % 11.7-14.4 jjsm=297) PLATELET COUNT (BEAKER) (test irco=425) 219 K/CU MM 150-450 MEAN PLATELET VOLUME (BEAKER) (test uwnz=406) 9.4 fL 9.4-12.3 NUCLEATED RED BLOOD CELLS (BEAKER) (test 0 /100 WBC 0-0 etwl=645) NEUTROPHILS RELATIVE PERCENT (BEAKER) (test 44 % soaw=378) LYMPHOCYTES RELATIVE PERCENT (BEAKER) (test 43 % jynm=997) MONOCYTES RELATIVE PERCENT (BEAKER) (test 6 % doqa=292) EOSINOPHILS RELATIVE PERCENT (BEAKER) (test 6 % mcio=590) BASOPHILS RELATIVE PERCENT (BEAKER) (test 1 % hcxy=232) NEUTROPHILS ABSOLUTE COUNT (BEAKER) (test 2.67 K/ L 1.56-6.13 spsu=562) LYMPHOCYTES ABSOLUTE COUNT (BEAKER) (test 2.66 K/ L 1.18-3.74 aboe=284) MONOCYTES ABSOLUTE COUNT (BEAKER) (test 0.38 K/ L 0.24-0.36 mpsg=013) EOSINOPHILS ABSOLUTE COUNT (BEAKER) (test 0.37 K/ L 0.04-0.36 ijgz=412) BASOPHILS ABSOLUTE COUNT (BEAKER) (test 0.05 K/ L 0.01-0.08 egts=748) IMMATURE GRANULOCYTES-RELATIVE PERCENT (BEAKER) 0 % 0-1 (test seiz=7580) POCT-GLUCOSE [id number] 20:36:00 Test Item Value Reference Range Comments POC-GLUCOSE METER (BEAKER) 211 mg/dL 70-110 TESTED AT [address] (test rjhp=1835) [place] [id number] CREATININE, RANDOM [id number] 19:55:00 Test Item Value Reference Range Comments CREATININE URINE (BEAKER) (test nwrb=670) 16.1 mg/dL Reference Range: No NormalsPROTEIN, RANDOM [id number] 19:55:00 Test Item Value Reference Range Comments PROTEIN, URINE (BEAKER) (test lleb=8864) 102 mg/dL 0-14 POCT-GLUCOSE [id number] 18:04:00 Test Item Value Reference Range Comments POC-GLUCOSE METER (BEAKER) 177 mg/dL 70-110 TESTED AT [address] (test ymkm=6629) [place] [id number] POCT-GLUCOSE [id number] 11:59:00 Test Item Value Reference Range Comments POC-GLUCOSE METER (BEAKER) 244 mg/dL 70-110 TESTED AT [address] (test ewgo=0530) [place] [id number] POCT-GLUCOSE [id number] 07:53:00 Test Item Value Reference Range Comments POC-GLUCOSE METER (BEAKER) 160 mg/dL 70-110 TESTED AT [address] (test oony=7874) [place] [id number] BASIC METABOLIC [id number] 05:29:00 Test Item Value Reference Range Comments SODIUM (BEAKER) (test 136 meq/L 136-145 qojl=496) POTASSIUM (BEAKER) (test 4.5 meq/L 3.5-5.1 qcvw=847) CHLORIDE (BEAKER) (test 105 meq/L 98-107 hslf=273) CO2 (BEAKER) (test 24 meq/L 22-29 jpfg=824) BLOOD UREA NITROGEN 51 mg/dL 7-21 (BEAKER) (test ajly=101) CREATININE (BEAKER) (test 1.76 mg/dL 0.57-1.25 gkyw=960) GLUCOSE RANDOM (BEAKER) 149 mg/dL 70-105 (test wtrj=384) CALCIUM (BEAKER) (test 8.9 mg/dL 8.4-10.2 nlqd=432) EGFR (BEAKER) (test 29 mL/min/1.73 sq m ESTIMATED GFR IS NOT hvyh=6054) ACCURATE CREATININE CLEARANCE IN PREDICTING GLOMERULAR FILTRATION RATE. ESTIMATED GFR IS NOT APPLICABLE FOR DIALYSIS PATIENTS. [id number] 05:21:00 Test Item Value Reference Range Comments MAGNESIUM (BEAKER) (test uiet=884) 2.1 mg/dL 1.6-2.6 HEPATIC FUNCTION [id number] 05:21:00 Test Item Value Reference Range Comments TOTAL PROTEIN (BEAKER) (test iewb=719) 6.8 gm/dL 6.0-8.3 ALBUMIN (BEAKER) (test yuqd=1842) 2.9 g/dL 3.5-5.0 BILIRUBIN TOTAL (BEAKER) (test gzcj=265) 0.5 mg/dL 0.2-1.2 BILIRUBIN DIRECT (BEAKER) (test wvpy=753) 0.2 mg/dL 0.1-0.5 ALKALINE PHOSPHATASE (BEAKER) (test aqhh=958) 173 U/L 40-150 AST (SGOT) (BEAKER) (test qxhs=691) 25 U/L 5-34 ALT (SGPT) (BEAKER) (test rtfw=871) 23 U/L 6-55 TROPONIN [id number] 05:18:00 Test Item Value Reference Range Comments TROPONIN I (BEAKER) (test syee=559) 0.05 ng/mL 0.00-0.03 Troponin I (TnI) levels [...] and persistent tachyarrhythmia.CBC W/PLT COUNT & AUTO [id number] 04:59:00 Test Item Value Reference Range Comments WHITE BLOOD CELL COUNT (BEAKER) (test tsex=006) 6.9 K/ L 3.5-10.5 RED BLOOD CELL COUNT (BEAKER) (test kifx=575) 3.75 M/ L 3.93-5.22 HEMOGLOBIN (BEAKER) (test vurz=695) 8.9 GM/DL 11.2-15.7 HEMATOCRIT (BEAKER) (test gjow=298) 29.7 % 34.1-44.9 MEAN CORPUSCULAR VOLUME (BEAKER) (test mmmp=946) 79.2 fL 79.4-94.8 MEAN CORPUSCULAR HEMOGLOBIN (BEAKER) (test 23.7 pg 25.6-32.2 njin=798) MEAN CORPUSCULAR HEMOGLOBIN CONC (BEAKER) (test 30.0 GM/DL 32.2-35.5 uzbc=819) RED CELL DISTRIBUTION WIDTH (BEAKER) (test 16.2 % 11.7-14.4 awyp=318) PLATELET COUNT (BEAKER) (test mocf=895) 240 K/CU MM 150-450 MEAN PLATELET VOLUME (BEAKER) (test mozv=673) 9.6 fL 9.4-12.3 NUCLEATED RED BLOOD CELLS (BEAKER) (test 0 /100 WBC 0-0 zvwh=921) NEUTROPHILS RELATIVE PERCENT (BEAKER) (test 48 % mdde=582) LYMPHOCYTES RELATIVE PERCENT (BEAKER) (test 40 % wpxq=752) MONOCYTES RELATIVE PERCENT (BEAKER) (test 6 % vsrv=209) EOSINOPHILS RELATIVE PERCENT (BEAKER) (test 5 % clkw=383) BASOPHILS RELATIVE PERCENT (BEAKER) (test 1 % nakf=276) NEUTROPHILS ABSOLUTE COUNT (BEAKER) (test 3.32 K/ L 1.56-6.13 ikud=646) LYMPHOCYTES ABSOLUTE COUNT (BEAKER) (test 2.76 K/ L 1.18-3.74 xxks=200) MONOCYTES ABSOLUTE COUNT (BEAKER) (test 0.39 K/ L 0.24-0.36 edro=837) EOSINOPHILS ABSOLUTE COUNT (BEAKER) (test 0.36 K/ L 0.04-0.36 gcjm=728) BASOPHILS ABSOLUTE COUNT (BEAKER) (test 0.06 K/ L 0.01-0.08 vdvl=350) IMMATURE GRANULOCYTES-RELATIVE PERCENT (BEAKER) 0 % 0-1 (test almh=6505) TROPONIN [id number] 23:40:00 Test Item Value Reference Range Comments TROPONIN I (BEAKER) (test pdeq=239) 0.04 ng/mL 0.00-0.03 Troponin I (TnI) levels [...] acidosis, acute neurological disease, and persistent tachyarrhythmia.POCT-GLUCOSE [id number] 22:51:00 Test Item Value Reference Range Comments POC-GLUCOSE METER (BEAKER) 214 mg/dL 70-110 TESTED AT [address] (test tseg=2368) [facility] [address] RAD, CHEST, 1 VIEW, NON [id number] 21:42:00Reason for exam:->CHEST PAINShould this be performed at the bedside?->YesFINAL REPORT RAD, CHEST, 1 VIEW, NON DEPT INDICATION: CHEST PAIN COMPARISON: Chest x -ray 4 weeks ago TECHNIQUE: Single frontal view of the chest. IMPRESSION: Cardiomegaly.Mild pulmonary interstitial edema with a small right-sided effusion.No acute osseous abnormality. Signed: Dario Abraham MDReport Verified Date/Time: 09/02/2017 21:42:11 Reading Location: [address] Transitional Reading Room CREATININE, RANDOM [id number] 21:10:00 Test Item Value Reference Range Comments CREATININE URINE (BEAKER) (test beis=417) 35.5 mg/dL Reference Range: No NormalsSODIUM, RANDOM [id number] 21:10:00 Test Item Value Reference Range Comments SODIUM URINE (BEAKER) (test xeyl=140) 80 meq/L Reference Range: No NormalsURINALYSIS W/ [id number] 20:59:00 Test Item Value Reference Range Comments COLOR (BEAKER) (test tass=479) Light Yellow CLARITY (BEAKER) (test tvqt=205) Clear SPECIFIC GRAVITY UA (BEAKER) (test jaks=210) 1.008 1.001-1.035 PH UA (BEAKER) (test slos=899) 6.5 5.0-8.0 PROTEIN UA (BEAKER) (test uqvz=891) 200 mg/dL Negative GLUCOSE UA (BEAKER) (test xwbu=197) 70 mg/dL Negative KETONES UA (BEAKER) (test dwax=448) Negative Negative BILIRUBIN UA (BEAKER) (test mvju=714) Negative Negative BLOOD UA (BEAKER) (test txcg=215) Negative Negative NITRITE UA (BEAKER) (test kgne=498) Negative Negative LEUKOCYTE ESTERASE UA (BEAKER) (test onvs=239) Negative Negative UROBILINOGEN UA (BEAKER) (test okhq=727) 0.2 mg/dL 0.2-1.0 RBC UA (BEAKER) (test ijho=184) < /HPF WBC UA (BEAKER) (test nuse=772) 2 /HPF BACTERIA (BEAKER) (test srvy=564) Occasional MUCUS (BEAKER) (test cxhb=8751) Rare SQUAMOUS EPITHELIAL (BEAKER) (test dgev=952) 2 /HPF HYALINE CASTS (BEAKER) (test kocz=371) 7 /LPF SOURCE(BEAKER) (test oczd=9700) BASIC METABOLIC [id number] 16:49:00 Test Item Value Reference Range Comments SODIUM (BEAKER) (test 134 meq/L 136-145 vxlb=104) POTASSIUM (BEAKER) (test 4.8 meq/L 3.5-5.1 ytbd=368) CHLORIDE (BEAKER) (test 101 meq/L 98-107 shyd=857) CO2 (BEAKER) (test 26 meq/L 22-29 yeyh=953) BLOOD UREA NITROGEN 53 mg/dL 7-21 (BEAKER) (test sypv=988) CREATININE (BEAKER) (test 2.04 mg/dL 0.57-1.25 wcek=020) GLUCOSE RANDOM (BEAKER) 267 mg/dL 70-105 (test jqun=247) CALCIUM (BEAKER) (test 9.1 mg/dL 8.4-10.2 kutd=735) EGFR (BEAKER) (test 25 mL/min/1.73 sq m ESTIMATED GFR IS NOT ywcq=8280) ACCURATE CREATININE CLEARANCE IN PREDICTING GLOMERULAR FILTRATION RATE. ESTIMATED GFR IS NOT APPLICABLE FOR DIALYSIS PATIENTS. [id number] 16:38:00 Test Item Value Reference Range Comments PROTIME (BEAKER) (test huxw=903) 14.4 seconds 11.7-14.7 INR (BEAKER) (test xoga=835) 1.1 <=5.9 PARTIAL THROMBOPLASTIN TIME (BEAKER) (test 31.0 seconds 22.5-36.0 myrt=189) RECOMMENDED COUMADIN/WARFARIN INR THERAPY RANGESSTANDARD DOSE: 2.0 - 3.0 Includes: PROPHYLAXIS forvenous thrombosis, systemic embolization; TREATMENT for venous thrombosis and/or pulmonary embolus.HIGH RISK: Target INR is 2.5-3.5 for patients with mechanical heart valves.CBC W/PLT COUNT & AUTO [id number] 16:26:00 Test Item Value Reference Range Comments WHITE BLOOD CELL COUNT (BEAKER) (test lepl=837) 6.3 K/ L 3.5-10.5 RED BLOOD CELL COUNT (BEAKER) (test wezp=937) 4.22 M/ L 3.93-5.22 HEMOGLOBIN (BEAKER) (test vyio=288) 10.1 GM/DL 11.2-15.7 HEMATOCRIT (BEAKER) (test daso=471) 33.4 % 34.1-44.9 MEAN CORPUSCULAR VOLUME (BEAKER) (test ixxk=095) 79.1 fL 79.4-94.8 MEAN CORPUSCULAR HEMOGLOBIN (BEAKER) (test 23.9 pg 25.6-32.2 swll=089) MEAN CORPUSCULAR HEMOGLOBIN CONC (BEAKER) (test 30.2 GM/DL 32.2-35.5 uddr=824) RED CELL DISTRIBUTION WIDTH (BEAKER) (test 16.1 % 11.7-14.4 jarq=258) PLATELET COUNT (BEAKER) (test hdop=782) 252 K/CU MM 150-450 MEAN PLATELET VOLUME (BEAKER) (test smzb=139) 9.5 fL 9.4-12.3 NUCLEATED RED BLOOD CELLS (BEAKER) (test 0 /100 WBC 0-0 dvzu=995) NEUTROPHILS RELATIVE PERCENT (BEAKER) (test 49 % wfjb=679) LYMPHOCYTES RELATIVE PERCENT (BEAKER) (test 38 % kyzk=709) MONOCYTES RELATIVE PERCENT (BEAKER) (test 6 % woiw=480) EOSINOPHILS RELATIVE PERCENT (BEAKER) (test 5 % gazg=398) BASOPHILS RELATIVE PERCENT (BEAKER) (test 1 % zwtw=489) NEUTROPHILS ABSOLUTE COUNT (BEAKER) (test 3.08 K/ L 1.56-6.13 rebk=219) LYMPHOCYTES ABSOLUTE COUNT (BEAKER) (test 2.42 K/ L 1.18-3.74 ssbz=202) MONOCYTES ABSOLUTE COUNT (BEAKER) (test 0.40 K/ L 0.24-0.36 tboo=749) EOSINOPHILS ABSOLUTE COUNT (BEAKER) (test 0.33 K/ L 0.04-0.36 ymho=900) BASOPHILS ABSOLUTE COUNT (BEAKER) (test 0.07 K/ L 0.01-0.08 novq=161) IMMATURE GRANULOCYTES-RELATIVE PERCENT (BEAKER) 0 % 0-1 (test talz=4697) B-TYPE NATRIURETIC FACTOR (BNP)2017-09-02 13:47:00 Test Item Value Reference Range Comments B-TYPE NATRIURETIC PEPTIDE (BEAKER) (test 1942 pg/mL 0-100 ijco=677) BASIC METABOLIC [id number] 13:43:00 Test Item Value Reference Range Comments SODIUM (BEAKER) (test 134 meq/L 136-145 hgpj=261) POTASSIUM (BEAKER) (test 5.2 meq/L 3.5-5.1 spmw=695) CHLORIDE (BEAKER) (test 101 meq/L 98-107 wykj=271) CO2 (BEAKER) (test 25 meq/L 22-29 iixi=688) BLOOD UREA NITROGEN 55 mg/dL 7-21 (BEAKER) (test kiem=505) CREATININE (BEAKER) (test 2.09 mg/dL 0.57-1.25 aiqa=335) GLUCOSE RANDOM (BEAKER) 317 mg/dL 70-105 (test shhz=593) CALCIUM (BEAKER) (test 9.2 mg/dL 8.4-10.2 ucnh=332) EGFR (BEAKER) (test 24 mL/min/1.73 sq m ESTIMATED GFR IS NOT hofp=6158) ACCURATE CREATININE CLEARANCE IN PREDICTING GLOMERULAR FILTRATION RATE. ESTIMATED GFR IS NOT APPLICABLE FOR DIALYSIS PATIENTS. POCT-GLUCOSE [id number] 12:44:00 Test Item Value Reference Range Comments POC-GLUCOSE METER (BEAKER) 283 mg/dL 70-110 TESTED AT [facility] [address] [facility] (test iggq=1917) [facility] [address] CALCIUM, [id number] 07:03:00 Test Item Value Reference Range Comments CALCIUM IONIZED (BEAKER) (test adei=187) 1.02 mmol/L 1.12-1.27 PH, BLOOD (BEAKER) (test nium=5271) 7.43 [id number] 05:28:00 Test Item Value Reference Range Comments PHOSPHORUS (BEAKER) (test lzwn=436) 3.3 mg/dL 2.3-4.7 [id number] 05:28:00 Test Item Value Reference Range Comments MAGNESIUM (BEAKER) (test zziv=157) 1.5 mg/dL 1.6-2.6 BASIC METABOLIC [id number] 05:28:00 Test Item Value Reference Range Comments SODIUM (BEAKER) (test 135 meq/L 136-145 gvjc=965) POTASSIUM (BEAKER) (test 3.9 meq/L 3.5-5.1 ufci=504) CHLORIDE (BEAKER) (test 101 meq/L 98-107 cbrn=165) CO2 (BEAKER) (test 27 meq/L 22-29 oxhv=907) BLOOD UREA NITROGEN 35 mg/dL 7-21 (BEAKER) (test kdop=137) CREATININE (BEAKER) (test 1.37 mg/dL 0.57-1.25 shin=303) GLUCOSE RANDOM (BEAKER) 145 mg/dL 70-105 (test mdyp=944) CALCIUM (BEAKER) (test 8.3 mg/dL 8.4-10.2 guiv=342) EGFR (BEAKER) (test 39 mL/min/1.73 sq m ESTIMATED GFR IS NOT tptp=6636) ACCURATE CREATININE CLEARANCE IN PREDICTING GLOMERULAR FILTRATION RATE. ESTIMATED GFR IS NOT APPLICABLE FOR DIALYSIS PATIENTS. CBC W/PLT COUNT & AUTO [id number] 05:06:00 Test Item Value Reference Range Comments WHITE BLOOD CELL COUNT (BEAKER) (test lfaq=372) 9.3 K/ L 3.5-10.5 RED BLOOD CELL COUNT (BEAKER) (test xjtw=776) 3.64 M/ L 3.93-5.22 HEMOGLOBIN (BEAKER) (test oeee=585) 8.7 GM/DL 11.2-15.7 HEMATOCRIT (BEAKER) (test ebhl=815) 28.5 % 34.1-44.9 MEAN CORPUSCULAR VOLUME (BEAKER) (test tppv=640) 78.3 fL 79.4-94.8 MEAN CORPUSCULAR HEMOGLOBIN (BEAKER) (test 23.9 pg 25.6-32.2 qyxe=187) MEAN CORPUSCULAR HEMOGLOBIN CONC (BEAKER) (test 30.5 GM/DL 32.2-35.5 cpea=983) RED CELL DISTRIBUTION WIDTH (BEAKER) (test 14.6 % 11.7-14.4 zfsk=864) PLATELET COUNT (BEAKER) (test qtmi=085) 336 K/CU MM 150-450 MEAN PLATELET VOLUME (BEAKER) (test tyhq=953) 9.3 fL 9.4-12.3 NUCLEATED RED BLOOD CELLS (BEAKER) (test 0 /100 WBC 0-0 orcy=852) NEUTROPHILS RELATIVE PERCENT (BEAKER) (test 50 % vndj=226) LYMPHOCYTES RELATIVE PERCENT (BEAKER) (test 40 % hlgr=178) MONOCYTES RELATIVE PERCENT (BEAKER) (test 6 % sffk=692) EOSINOPHILS RELATIVE PERCENT (BEAKER) (test 3 % sxvv=066) BASOPHILS RELATIVE PERCENT (BEAKER) (test 1 % zzsp=611) NEUTROPHILS ABSOLUTE COUNT (BEAKER) (test 4.66 K/ L 1.56-6.13 bdiw=894) LYMPHOCYTES ABSOLUTE COUNT (BEAKER) (test 3.71 K/ L 1.18-3.74 kylx=239) MONOCYTES ABSOLUTE COUNT (BEAKER) (test 0.53 K/ L 0.24-0.36 ldor=686) EOSINOPHILS ABSOLUTE COUNT (BEAKER) (test 0.31 K/ L 0.04-0.36 aigo=300) BASOPHILS ABSOLUTE COUNT (BEAKER) (test 0.07 K/ L 0.01-0.08 qjom=636) IMMATURE GRANULOCYTES-RELATIVE PERCENT (BEAKER) 1 % 0-1 (test wpqd=0229) POCT-GLUCOSE [id number] 21:08:00 Test Item Value Reference Range Comments POC-GLUCOSE METER (BEAKER) 202 mg/dL 70-110 TESTED AT [address] (test acvf=9363) [facility] [address] POCT-GLUCOSE [id number] 16:50:00 Test Item Value Reference Range Comments POC-GLUCOSE METER (BEAKER) 287 mg/dL 70-110 TESTED AT [address] (test pbks=2878) [facility] [address] POCT-GLUCOSE [id number] 12:21:00 Test Item Value Reference Range Comments POC-GLUCOSE METER (BEAKER) 213 mg/dL 70-110 TESTED AT [address] (test hxtc=0768) [facility] [address] POCT-GLUCOSE [id number] 08:28:00 Test Item Value Reference Range Comments POC-GLUCOSE METER (BEAKER) 178 mg/dL 70-110 TESTED AT [address] (test nwgh=4045) [facility] [address] CALCIUM, [id number] 07:06:00 Test Item Value Reference Range Comments CALCIUM IONIZED (BEAKER) (test xkmt=239) 0.99 mmol/L 1.12-1.27 PH, BLOOD (BEAKER) (test shsb=6709) 7.42 [id number] 05:37:00 Test Item Value Reference Range Comments PHOSPHORUS (BEAKER) (test uvpt=936) 3.5 mg/dL 2.3-4.7 [id number] 05:37:00 Test Item Value Reference Range Comments MAGNESIUM (BEAKER) (test bnon=348) 1.6 mg/dL 1.6-2.6 BASIC METABOLIC [id number] 05:37:00 Test Item Value Reference Range Comments SODIUM (BEAKER) (test 133 meq/L 136-145 rybg=879) POTASSIUM (BEAKER) (test 3.8 meq/L 3.5-5.1 yrfy=798) CHLORIDE (BEAKER) (test 101 meq/L 98-107 bryv=930) CO2 (BEAKER) (test 25 meq/L 22-29 wwen=226) BLOOD UREA NITROGEN 39 mg/dL 7-21 (BEAKER) (test dvrx=801) CREATININE (BEAKER) (test 1.42 mg/dL 0.57-1.25 gtrb=357) GLUCOSE RANDOM (BEAKER) 200 mg/dL 70-105 (test pcgp=696) CALCIUM (BEAKER) (test 8.0 mg/dL 8.4-10.2 bgei=558) EGFR (BEAKER) (test 37 mL/min/1.73 sq m ESTIMATED GFR IS NOT xvix=3937) ACCURATE CREATININE CLEARANCE IN PREDICTING GLOMERULAR FILTRATION RATE. ESTIMATED GFR IS NOT APPLICABLE FOR DIALYSIS PATIENTS. CBC W/PLT COUNT & AUTO [id number] 05:07:00 Test Item Value Reference Range Comments WHITE BLOOD CELL COUNT (BEAKER) (test mnyf=329) 9.2 K/ L 3.5-10.5 RED BLOOD CELL COUNT (BEAKER) (test fkht=865) 3.69 M/ L 3.93-5.22 HEMOGLOBIN (BEAKER) (test cmui=249) 8.8 GM/DL 11.2-15.7 HEMATOCRIT (BEAKER) (test bifw=194) 28.8 % 34.1-44.9 MEAN CORPUSCULAR VOLUME (BEAKER) (test vohk=555) 78.0 fL 79.4-94.8 MEAN CORPUSCULAR HEMOGLOBIN (BEAKER) (test 23.8 pg 25.6-32.2 tpmh=258) MEAN CORPUSCULAR HEMOGLOBIN CONC (BEAKER) (test 30.6 GM/DL 32.2-35.5 qwuk=796) RED CELL DISTRIBUTION WIDTH (BEAKER) (test 14.6 % 11.7-14.4 gkni=030) PLATELET COUNT (BEAKER) (test mjry=832) 308 K/CU MM 150-450 MEAN PLATELET VOLUME (BEAKER) (test zkfp=131) 9.3 fL 9.4-12.3 NUCLEATED RED BLOOD CELLS (BEAKER) (test 0 /100 WBC 0-0 fjlr=267) NEUTROPHILS RELATIVE PERCENT (BEAKER) (test 61 % lefc=018) LYMPHOCYTES RELATIVE PERCENT (BEAKER) (test 30 % nwnz=369) MONOCYTES RELATIVE PERCENT (BEAKER) (test 5 % iofn=696) EOSINOPHILS RELATIVE PERCENT (BEAKER) (test 3 % mkjm=553) BASOPHILS RELATIVE PERCENT (BEAKER) (test 0 % llhx=935) NEUTROPHILS ABSOLUTE COUNT (BEAKER) (test 5.67 K/ L 1.56-6.13 qqsg=189) LYMPHOCYTES ABSOLUTE COUNT (BEAKER) (test 2.72 K/ L 1.18-3.74 hmvx=431) MONOCYTES ABSOLUTE COUNT (BEAKER) (test 0.48 K/ L 0.24-0.36 bffi=430) EOSINOPHILS ABSOLUTE COUNT (BEAKER) (test 0.26 K/ L 0.04-0.36 yevm=306) BASOPHILS ABSOLUTE COUNT (BEAKER) (test 0.04 K/ L 0.01-0.08 lxpb=148) IMMATURE GRANULOCYTES-RELATIVE PERCENT (BEAKER) 1 % 0-1 (test emgl=1538) POCT-GLUCOSE [id number] 21:24:00 Test Item Value Reference Range Comments POC-GLUCOSE METER (BEAKER) 255 mg/dL 70-110 TESTED AT [address] (test wavm=8406) [place] [id number] POCT-GLUCOSE [id number] 17:11:00 Test Item Value Reference Range Comments POC-GLUCOSE METER (BEAKER) 244 mg/dL 70-110 TESTED AT [address] (test qlzy=2862) [facility] [address] POCT-GLUCOSE [id number] 11:54:00 Test Item Value Reference Range Comments POC-GLUCOSE METER (BEAKER) 209 mg/dL 70-110 TESTED AT [address] (test jahw=9936) [place] [id number] POCT-GLUCOSE [id number] 08:15:00 Test Item Value Reference Range Comments POC-GLUCOSE METER (BEAKER) 132 mg/dL 70-110 TESTED AT [address] (test lkwx=1359) [facility] [address] RAD, CHEST, 1 VIEW, NON [id number] 07:44:00Reason for exam:->edemaShould this be performed at the bedside?->YesFINAL REPORT Chest one view AP 08/07/2017 7:44 AM CLINICAL INDICATION: edema COMPARISON: 2017 IMPRESSION: Cardiomediastinal contours are stable. There is mild pulmonary edema,asymmetric to the right. There are trace bilateral pleural effusions, with bibasilar linear atelectasis. Sternotomy wires remain midline. Signed: Eder Cespedesort Verified Date/Time: 08/07/2017 07:44:22 Reading Location: [facility] Reading Room [id number] 05:30:00 Test Item Value Reference Range Comments FERRITIN (BEAKER) (test ctoq=309) 87 ng/mL 5-275 CBC W/PLT COUNT & AUTO [id number] 05:21:00 Test Item Value Reference Range Comments WHITE BLOOD CELL COUNT (BEAKER) (test ykfw=139) 12.4 K/ L 3.5-10.5 RED BLOOD CELL COUNT (BEAKER) (test fxqu=850) 3.78 M/ L 3.93-5.22 HEMOGLOBIN (BEAKER) (test qikh=749) 9.0 GM/DL 11.2-15.7 HEMATOCRIT (BEAKER) (test egyb=075) 29.3 % 34.1-44.9 MEAN CORPUSCULAR VOLUME (BEAKER) (test llag=548) 77.5 fL 79.4-94.8 MEAN CORPUSCULAR HEMOGLOBIN (BEAKER) (test 23.8 pg 25.6-32.2 lmqp=732) MEAN CORPUSCULAR HEMOGLOBIN CONC (BEAKER) (test 30.7 GM/DL 32.2-35.5 sscs=688) RED CELL DISTRIBUTION WIDTH (BEAKER) (test 14.7 % 11.7-14.4 ybek=207) PLATELET COUNT (BEAKER) (test pery=956) 316 K/CU MM 150-450 MEAN PLATELET VOLUME (BEAKER) (test slzs=151) 9.6 fL 9.4-12.3 NUCLEATED RED BLOOD CELLS (BEAKER) (test 0 /100 WBC 0-0 dqtm=663) NEUTROPHILS RELATIVE PERCENT (BEAKER) (test 72 % ojpp=169) LYMPHOCYTES RELATIVE PERCENT (BEAKER) (test 20 % xuzb=446) MONOCYTES RELATIVE PERCENT (BEAKER) (test 5 % trwk=015) EOSINOPHILS RELATIVE PERCENT (BEAKER) (test 2 % uhiz=251) BASOPHILS RELATIVE PERCENT (BEAKER) (test 1 % kbgr=694) NEUTROPHILS ABSOLUTE COUNT (BEAKER) (test 8.93 K/ L 1.56-6.13 bvss=488) LYMPHOCYTES ABSOLUTE COUNT (BEAKER) (test 2.51 K/ L 1.18-3.74 zjoo=258) MONOCYTES ABSOLUTE COUNT (BEAKER) (test 0.58 K/ L 0.24-0.36 hdhq=236) EOSINOPHILS ABSOLUTE COUNT (BEAKER) (test 0.23 K/ L 0.04-0.36 gibi=234) BASOPHILS ABSOLUTE COUNT (BEAKER) (test 0.07 K/ L 0.01-0.08 qami=321) IMMATURE GRANULOCYTES-RELATIVE PERCENT (BEAKER) 1 % 0-1 (test pspy=3320) IRON, TIBC, % SAT. (WITHOUT FERRITIN)2017-08-07 05:16:00 Test Item Value Reference Range Comments IRON (BEAKER) (test pxda=499) 21 ug/dL 40-160 TOTAL IRON BINDING CAPACITY (BEAKER) (test 184 ug/dL 250-450 pnio=495) IRON % SATURATION (2) (BEAKER) (test vfwe=5996) 11 % 20-55 [id number] 05:11:00 Test Item Value Reference Range Comments PHOSPHORUS (BEAKER) (test ciyz=315) 3.6 mg/dL 2.3-4.7 [id number] 05:11:00 Test Item Value Reference Range Comments MAGNESIUM (BEAKER) (test izxg=543) 2.0 mg/dL 1.6-2.6 BASIC METABOLIC [id number] 05:11:00 Test Item Value Reference Range Comments SODIUM (BEAKER) (test 134 meq/L 136-145 xzay=419) POTASSIUM (BEAKER) (test 3.9 meq/L 3.5-5.1 hhgn=619) CHLORIDE (BEAKER) (test 102 meq/L 98-107 ivjp=519) CO2 (BEAKER) (test 23 meq/L 22-29 qlaw=527) BLOOD UREA NITROGEN 41 mg/dL 7-21 (BEAKER) (test isev=643) CREATININE (BEAKER) (test 1.63 mg/dL 0.57-1.25 lwui=442) GLUCOSE RANDOM (BEAKER) 124 mg/dL 70-105 (test nkis=124) CALCIUM (BEAKER) (test 8.3 mg/dL 8.4-10.2 wdjr=667) EGFR (BEAKER) (test 32 mL/min/1.73 sq m ESTIMATED GFR IS NOT hzot=1126) ACCURATE CREATININE CLEARANCE IN PREDICTING GLOMERULAR FILTRATION RATE. ESTIMATED GFR IS NOT APPLICABLE FOR DIALYSIS PATIENTS. B-TYPE NATRIURETIC FACTOR (BNP)2017-08-07 05:05:00 Test Item Value Reference Range Comments B-TYPE NATRIURETIC PEPTIDE (BEAKER) (test 1561 pg/mL 0-100 nfpj=593) CALCIUM, [id number] 04:58:00 Test Item Value Reference Range Comments CALCIUM IONIZED (BEAKER) (test pwtj=080) 1.04 mmol/L 1.12-1.27 PH, BLOOD (BEAKER) (test flpe=2353) 7.41 RETICULOCYTE [id number] 04:51:00 Test Item Value Reference Range Comments RETICULOCYTE COUNT PCT (BEAKER) (test ycic=549) 1.2 % 0.5-1.7 POCT-GLUCOSE [id number] 20:49:00 Test Item Value Reference Range Comments POC-GLUCOSE METER (BEAKER) 202 mg/dL 70-110 TESTED AT [facility] [address] [facility] (test yeox=8058) [facility] [address] CREATININE, RANDOM [id number] 18:38:00 Test Item Value Reference Range Comments CREATININE URINE (BEAKER) (test afev=094) 56.3 mg/dL Reference Range: No NormalsPROTEIN, RANDOM [id number] 18:38:00 Test Item Value Reference Range Comments PROTEIN, URINE (BEAKER) (test ijpb=5476) 189 mg/dL 0-14 URINALYSIS W/ [id number] 18:34:00 Test Item Value Reference Range Comments COLOR (BEAKER) (test null=193) Light Yellow CLARITY (BEAKER) (test swwb=303) Hazy SPECIFIC GRAVITY UA (BEAKER) (test vuwh=704) 1.008 1.001-1.035 PH UA (BEAKER) (test dqad=046) 5.5 5.0-8.0 PROTEIN UA (BEAKER) (test nswa=088) 100 mg/dL Negative GLUCOSE UA (BEAKER) (test mdlx=381) 30 mg/dL Negative KETONES UA (BEAKER) (test sgns=484) Negative Negative BILIRUBIN UA (BEAKER) (test qtrx=029) Negative Negative BLOOD UA (BEAKER) (test zxzi=273) Negative Negative NITRITE UA (BEAKER) (test egnh=165) Negative Negative LEUKOCYTE ESTERASE UA (BEAKER) (test pllt=822) Negative Negative UROBILINOGEN UA (BEAKER) (test gldx=760) 0.2 mg/dL 0.2-1.0 RBC UA (BEAKER) (test wrcd=280) < /HPF WBC UA (BEAKER) (test nfdm=971) 2 /HPF BACTERIA (BEAKER) (test xtja=140) Rare MUCUS (BEAKER) (test hhrc=6824) Rare SQUAMOUS EPITHELIAL (BEAKER) (test kirg=821) 8 /HPF SOURCE(BEAKER) (test jodd=0950) Urine, Voided POCT-GLUCOSE [id number] 17:38:00 Test Item Value Reference Range Comments POC-GLUCOSE METER (BEAKER) 143 mg/dL 70-110 TESTED AT [address] (test huza=6502) [place] [address] POCT-GLUCOSE [id number] 12:30:00 Test Item Value Reference Range Comments POC-GLUCOSE METER (BEAKER) 218 mg/dL 70-110 TESTED AT [address] (test pdtn=0745) [place] [address] POCT-GLUCOSE [id number] 08:00:00 Test Item Value Reference Range Comments POC-GLUCOSE METER (BEAKER) 134 mg/dL 70-110 TESTED AT [address] (test ymqs=3689) [place] [address] CBC W/PLT COUNT & AUTO [id number] 04:23:00 Test Item Value Reference Range Comments WHITE BLOOD CELL COUNT (BEAKER) (test tipk=098) 13.9 K/ L 3.5-10.5 RED BLOOD CELL COUNT (BEAKER) (test mqcd=012) 3.23 M/ L 3.93-5.22 HEMOGLOBIN (BEAKER) (test xiqp=006) 7.6 GM/DL 11.2-15.7 HEMATOCRIT (BEAKER) (test nfhk=474) 25.3 % 34.1-44.9 MEAN CORPUSCULAR VOLUME (BEAKER) (test pzes=254) 78.3 fL 79.4-94.8 MEAN CORPUSCULAR HEMOGLOBIN (BEAKER) (test 23.5 pg 25.6-32.2 jwlz=647) MEAN CORPUSCULAR HEMOGLOBIN CONC (BEAKER) (test 30.0 GM/DL 32.2-35.5 urko=977) RED CELL DISTRIBUTION WIDTH (BEAKER) (test 14.8 % 11.7-14.4 yfmp=939) PLATELET COUNT (BEAKER) (test clhy=193) 284 K/CU MM 150-450 MEAN PLATELET VOLUME (BEAKER) (test cars=496) 9.8 fL 9.4-12.3 NUCLEATED RED BLOOD CELLS (BEAKER) (test 0 /100 WBC 0-0 ymjl=318) NEUTROPHILS RELATIVE PERCENT (BEAKER) (test 77 % poud=051) LYMPHOCYTES RELATIVE PERCENT (BEAKER) (test 16 % woaf=965) MONOCYTES RELATIVE PERCENT (BEAKER) (test 4 % cmpn=273) EOSINOPHILS RELATIVE PERCENT (BEAKER) (test 2 % aqsa=284) BASOPHILS RELATIVE PERCENT (BEAKER) (test 1 % qbpb=299) NEUTROPHILS ABSOLUTE COUNT (BEAKER) (test 10.70 K/ L 1.56-6.13 tadt=579) LYMPHOCYTES ABSOLUTE COUNT (BEAKER) (test 2.17 K/ L 1.18-3.74 zigb=914) MONOCYTES ABSOLUTE COUNT (BEAKER) (test 0.57 K/ L 0.24-0.36 epoi=115) EOSINOPHILS ABSOLUTE COUNT (BEAKER) (test 0.30 K/ L 0.04-0.36 pzoo=910) BASOPHILS ABSOLUTE COUNT (BEAKER) (test 0.08 K/ L 0.01-0.08 cjwr=181) IMMATURE GRANULOCYTES-RELATIVE PERCENT (BEAKER) 1 % 0-1 (test fqsg=3208) BASIC METABOLIC [id number] 04:13:00 Test Item Value Reference Range Comments SODIUM (BEAKER) (test 134 meq/L 136-145 iqiz=976) POTASSIUM (BEAKER) (test 4.6 meq/L 3.5-5.1 qgad=873) CHLORIDE (BEAKER) (test 103 meq/L 98-107 tqio=050) CO2 (BEAKER) (test 23 meq/L 22-29 lvoc=587) BLOOD UREA NITROGEN 43 mg/dL 7-21 (BEAKER) (test etxx=334) CREATININE (BEAKER) (test 1.79 mg/dL 0.57-1.25 gghy=951) GLUCOSE RANDOM (BEAKER) 123 mg/dL 70-105 (test emnn=787) CALCIUM (BEAKER) (test 8.1 mg/dL 8.4-10.2 wkvd=750) EGFR (BEAKER) (test 29 mL/min/1.73 sq m ESTIMATED GFR IS NOT srfn=5707) ACCURATE CREATININE CLEARANCE IN PREDICTING GLOMERULAR FILTRATION RATE. ESTIMATED GFR IS NOT APPLICABLE FOR DIALYSIS PATIENTS. [id number] 04:10:00 Test Item Value Reference Range Comments PHOSPHORUS (BEAKER) (test vcqf=548) 4.9 mg/dL 2.3-4.7 [id number] 04:10:00 Test Item Value Reference Range Comments MAGNESIUM (BEAKER) (test cvni=337) 1.4 mg/dL 1.6-2.6 [id number] 04:08:00 Test Item Value Reference Range Comments FIBRINOGEN LEVEL (BEAKER) (test qcwd=617) 548 mg/dl 225-434 [id number] 04:08:00 Test Item Value Reference Range Comments PARTIAL THROMBOPLASTIN TIME (BEAKER) (test 37.7 seconds 22.5-36.0 ejxm=835) PROTHROMBIN [id number] 04:07:00 Test Item Value Reference Range Comments PROTIME (BEAKER) (test pbfx=175) 16.2 seconds 11.7-14.7 INR (BEAKER) (test jikj=142) 1.3 <=5.9 RECOMMENDED COUMADIN/WARFARIN INR THERAPY RANGESSTANDARD DOSE: 2.0 - 3.0 Includes: PROPHYLAXIS forvenous thrombosis, systemic embolization; TREATMENT for venous thrombosis and/or pulmonary embolus.HIGH RISK: Target INR is 2.5-3.5 for patients with mechanical heart valves.[id number] 16:59:00 Test Item Value Reference Range Comments ACTIVATED CLOTTING TIME 219 sec TESTED AT [facility] [address] (BEAKER) (test wnmq=775) [facility] [address] BASIC METABOLIC [id number] 14:25:00 Test Item Value Reference Range Comments SODIUM (BEAKER) (test 134 meq/L 136-145 xtze=783) POTASSIUM (BEAKER) (test 4.4 meq/L 3.5-5.1 onii=230) CHLORIDE (BEAKER) (test 103 meq/L 98-107 kvme=906) CO2 (BEAKER) (test 22 meq/L 22-29 fcvd=710) BLOOD UREA NITROGEN 46 mg/dL 7-21 (BEAKER) (test khsi=550) CREATININE (BEAKER) (test 2.16 mg/dL 0.57-1.25 upjb=310) GLUCOSE RANDOM (BEAKER) 160 mg/dL 70-105 (test wlwp=583) CALCIUM (BEAKER) (test 7.8 mg/dL 8.4-10.2 itob=548) EGFR (BEAKER) (test 23 mL/min/1.73 sq m ESTIMATED GFR IS NOT mctw=2400) ACCURATE CREATININE CLEARANCE IN PREDICTING GLOMERULAR FILTRATION RATE. ESTIMATED GFR IS NOT APPLICABLE FOR DIALYSIS PATIENTS. POCT-GLUCOSE [id number] 13:21:00 Test Item Value Reference Range Comments POC-GLUCOSE METER (BEAKER) 170 mg/dL 70-110 TESTED AT [facility] [address] [place] [address] (test bigf=9501) [facility] [address] POTASSIUM-STAT [id number] 13:20:00 Test Item Value Reference Range Comments POTASSIUM (BEAKER) (test iodm=423) 4.2 meq/L 3.6-5.5 SODIUM NA-STAT [id number] 13:20:00 Test Item Value Reference Range Comments SODIUM (BEAKER) (test cqfb=802) 133 meq/L 135-148 HGB/HCT (H&H) - STAT [id number] 12:34:00 Test Item Value Reference Range Comments HEMOGLOBIN (BEAKER) (test umei=556) 10.8 g/dL 12.0-15.0 HEMATOCRIT (BEAKER) (test yjbp=652) 32.0 % 36.0-45.0 POTASSIUM-STAT [id number] 08:15:00 Test Item Value Reference Range Comments POTASSIUM (BEAKER) (test hfhk=670) 4.1 meq/L 3.6-5.5 BLOOD GAS, [id number] 08:15:00 Test Item Value Reference Range Comments PH ARTERIAL (BEAKER) (test vqkf=373) 7.36 7.35-7.45 PCO2 ARTERIAL (BEAKER) (test naso=276) 47 mmHg 35-45 PO2 ARTERIAL (BEAKER) (test egkd=297) 213 mmHg 80-90 O2 SATURATION ARTERIAL (BEAKER) (test iqsm=859) 99.4 % 96.0-97.0 HCO3 ARTERIAL (BEAKER) (test uswu=265) 26 mmol/L 21-29 BASE EXCESS ARTERIAL (BEAKER) (test tvtl=634) 0.3 mmol/L -2.0-3.0 PATIENT TEMPERATURE (BEAKER) (test vydx=8854) 37.2 C FIO2 (BEAKER) (test dyip=9841) 70.0 % SODIUM NA-STAT [id number] 08:15:00 Test Item Value Reference Range Comments SODIUM (BEAKER) (test dmua=116) 130 meq/L 135-148 GLUCOSE-STAT [id number] 08:15:00 Test Item Value Reference Range Comments GLUCOSE RANDOM (BEAKER) (test jzli=118) 172 mg/dL 70-110 HGB/HCT (H&H) - STAT [id number] 08:15:00 Test Item Value Reference Range Comments HEMOGLOBIN (BEAKER) (test snkk=860) 8.8 g/dL 12.0-15.0 HEMATOCRIT (BEAKER) (test wvbl=520) 26.0 % 36.0-45.0 BASIC METABOLIC [id number] 07:37:00 Test Item Value Reference Range Comments SODIUM (BEAKER) (test 135 meq/L 136-145 cgmp=043) POTASSIUM (BEAKER) (test 4.4 meq/L 3.5-5.1 nqhi=428) CHLORIDE (BEAKER) (test 100 meq/L 98-107 qznk=941) CO2 (BEAKER) (test 23 meq/L 22-29 tgeu=417) BLOOD UREA NITROGEN 46 mg/dL 7-21 (BEAKER) (test smed=442) CREATININE (BEAKER) (test 1.98 mg/dL 0.57-1.25 mcqk=269) GLUCOSE RANDOM (BEAKER) 188 mg/dL 70-105 (test coxl=272) CALCIUM (BEAKER) (test 8.9 mg/dL 8.4-10.2 zzve=841) EGFR (BEAKER) (test 26 mL/min/1.73 sq m ESTIMATED GFR IS NOT dlwq=2730) ACCURATE CREATININE CLEARANCE IN PREDICTING GLOMERULAR FILTRATION RATE. ESTIMATED GFR IS NOT APPLICABLE FOR DIALYSIS PATIENTS. CBC W/PLT COUNT & AUTO [id number] 07:20:00 Test Item Value Reference Range Comments WHITE BLOOD CELL COUNT (BEAKER) (test ickn=911) 20.2 K/ L 3.5-10.5 RED BLOOD CELL COUNT (BEAKER) (test ufny=415) 3.86 M/ L 3.93-5.22 HEMOGLOBIN (BEAKER) (test uzwf=458) 9.1 GM/DL 11.2-15.7 HEMATOCRIT (BEAKER) (test tzuu=485) 29.4 % 34.1-44.9 MEAN CORPUSCULAR VOLUME (BEAKER) (test nvgi=258) 76.2 fL 79.4-94.8 MEAN CORPUSCULAR HEMOGLOBIN (BEAKER) (test 23.6 pg 25.6-32.2 zmjv=032) MEAN CORPUSCULAR HEMOGLOBIN CONC (BEAKER) (test 31.0 GM/DL 32.2-35.5 fvio=943) RED CELL DISTRIBUTION WIDTH (BEAKER) (test 14.9 % 11.7-14.4 xlsg=443) PLATELET COUNT (BEAKER) (test robv=912) 343 K/CU MM 150-450 MEAN PLATELET VOLUME (BEAKER) (test lfle=277) 9.5 fL 9.4-12.3 NUCLEATED RED BLOOD CELLS (BEAKER) (test 0 /100 WBC 0-0 mooi=151) NEUTROPHILS RELATIVE PERCENT (BEAKER) (test 78 % nbxz=304) LYMPHOCYTES RELATIVE PERCENT (BEAKER) (test 15 % geju=872) MONOCYTES RELATIVE PERCENT (BEAKER) (test 5 % ikmu=024) EOSINOPHILS RELATIVE PERCENT (BEAKER) (test 1 % vrcm=527) BASOPHILS RELATIVE PERCENT (BEAKER) (test 1 % uxyi=769) NEUTROPHILS ABSOLUTE COUNT (BEAKER) (test 15.70 K/ L 1.56-6.13 fdlw=739) LYMPHOCYTES ABSOLUTE COUNT (BEAKER) (test 2.99 K/ L 1.18-3.74 exzk=083) MONOCYTES ABSOLUTE COUNT (BEAKER) (test 0.93 K/ L 0.24-0.36 tnei=474) EOSINOPHILS ABSOLUTE COUNT (BEAKER) (test 0.20 K/ L 0.04-0.36 cbwx=656) BASOPHILS ABSOLUTE COUNT (BEAKER) (test 0.12 K/ L 0.01-0.08 feoc=401) IMMATURE GRANULOCYTES-RELATIVE PERCENT (BEAKER) 1 % 0-1 (test fodc=4103) POCT-GLUCOSE [id number] 07:03:00 Test Item Value Reference Range Comments POC-GLUCOSE METER (BEAKER) 186 mg/dL 70-110 TESTED AT [address] (test wimt=5273) [place] [address] B-TYPE NATRIURETIC FACTOR (BNP)2017-06-10 12:44:00 Test Item Value Reference Range Comments B-TYPE NATRIURETIC PEPTIDE (BEAKER) (test 1264 pg/mL 0-100 fpru=811) [id number] 12:36:00 Test Item Value Reference Range Comments MAGNESIUM (BEAKER) (test anob=143) 1.6 mg/dL 1.6-2.6 BASIC METABOLIC [id number] 12:36:00 Test Item Value Reference Range Comments SODIUM (BEAKER) (test 137 meq/L 136-145 bwvl=843) POTASSIUM (BEAKER) (test 5.4 meq/L 3.5-5.1 cbsc=585) CHLORIDE (BEAKER) (test 108 meq/L 98-107 ypzo=558) CO2 (BEAKER) (test 21 meq/L 22-29 nudr=165) BLOOD UREA NITROGEN 39 mg/dL 7-21 (BEAKER) (test yxif=036) CREATININE (BEAKER) (test 1.49 mg/dL 0.57-1.25 lwuc=178) GLUCOSE RANDOM (BEAKER) 219 mg/dL 70-105 (test utnr=832) CALCIUM (BEAKER) (test 8.5 mg/dL 8.4-10.2 nxzl=661) EGFR (BEAKER) (test 35 mL/min/1.73 sq m ESTIMATED GFR IS NOT fztv=4084) ACCURATE CREATININE CLEARANCE IN PREDICTING GLOMERULAR FILTRATION RATE. ESTIMATED GFR IS NOT APPLICABLE FOR DIALYSIS PATIENTS. POCT-GLUCOSE [id number] 12:04:00 Test Item Value Reference Range Comments POC-GLUCOSE METER (BEAKER) 274 mg/dL 70-110 TESTED AT [address] (test fopj=9971) [place] [id number] POCT-GLUCOSE [id number] 07:21:00 Test Item Value Reference Range Comments POC-GLUCOSE METER (BEAKER) 137 mg/dL 70-110 TESTED AT [facility] [address] [facility] (test enkf=3455) [facility] [address] BASIC METABOLIC [id number] 05:10:00 Test Item Value Reference Range Comments SODIUM (BEAKER) (test 137 meq/L 136-145 eypw=030) POTASSIUM (BEAKER) (test 4.1 meq/L 3.5-5.1 iwqv=400) CHLORIDE (BEAKER) (test 106 meq/L 98-107 pain=702) CO2 (BEAKER) (test 24 meq/L 22-29 ergi=560) BLOOD UREA NITROGEN 42 mg/dL 7-21 (BEAKER) (test qsjw=561) CREATININE (BEAKER) (test 1.64 mg/dL 0.57-1.25 jnhw=407) GLUCOSE RANDOM (BEAKER) 162 mg/dL 70-105 (test phlo=982) CALCIUM (BEAKER) (test 8.1 mg/dL 8.4-10.2 pusa=640) EGFR (BEAKER) (test 32 mL/min/1.73 sq m ESTIMATED GFR IS NOT yoeg=3203) ACCURATE CREATININE CLEARANCE IN PREDICTING GLOMERULAR FILTRATION RATE. ESTIMATED GFR IS NOT APPLICABLE FOR DIALYSIS PATIENTS. CBC (HEMOGRAM ONLY)2017-06-01 04:30:00 Test Item Value Reference Range Comments WHITE BLOOD CELL COUNT (BEAKER) (test dxqp=973) 6.4 K/ L 3.5-10.5 RED BLOOD CELL COUNT (BEAKER) (test rscq=117) 3.38 M/ L 3.93-5.22 HEMOGLOBIN (BEAKER) (test ledq=740) 8.7 GM/DL 11.2-15.7 HEMATOCRIT (BEAKER) (test iydl=023) 28.2 % 34.1-44.9 MEAN CORPUSCULAR VOLUME (BEAKER) (test prtk=599) 83.4 fL 79.4-94.8 MEAN CORPUSCULAR HEMOGLOBIN (BEAKER) (test 25.7 pg 25.6-32.2 nylp=138) MEAN CORPUSCULAR HEMOGLOBIN CONC (BEAKER) (test 30.9 GM/DL 32.2-35.5 qtmz=031) RED CELL DISTRIBUTION WIDTH (BEAKER) (test 15.2 % 11.7-14.4 ogxq=644) PLATELET COUNT (BEAKER) (test ufmb=286) 320 K/CU MM 150-450 MEAN PLATELET VOLUME (BEAKER) (test rjtc=021) 9.5 fL 9.4-12.3 NUCLEATED RED BLOOD CELLS (BEAKER) (test 0 /100 WBC 0-0 pjly=890) POCT-GLUCOSE [id number] 21:23:00 Test Item Value Reference Range Comments POC-GLUCOSE METER (BEAKER) 240 mg/dL 70-110 TESTED AT [address] (test xaie=4475) [place] [id number] POCT-GLUCOSE [id number] 16:42:00 Test Item Value Reference Range Comments POC-GLUCOSE METER (BEAKER) 234 mg/dL 70-110 TESTED AT [address] (test ddcb=4415) [place] [id number] POCT-GLUCOSE [id number] 13:22:00 Test Item Value Reference Range Comments POC-GLUCOSE METER (BEAKER) 166 mg/dL 70-110 TESTED AT [address] (test trnq=0598) [facility] [address] RAD, CHEST, 1 VIEW, NON [id number] 09:43:00Reason for exam:->s/p ACBShould this be performed [...] Ring Verified Date/Time: 05/31/2017 09: 43:30 ReadingLocation: [facility] B1 [id number] Ortho Consult Reading Room POCT-GLUCOSE [id number] 06:57:00 Test Item Value Reference Range Comments POC-GLUCOSE METER (BEAKER) 136 mg/dL 70-110 TESTED AT [facility] [address] (test mqrq=4564) [facility] [address] CALCIUM, [id number] 06:41:00 Test Item Value Reference Range Comments CALCIUM IONIZED (BEAKER) (test roba=748) 1.10 mmol/L 1.12-1.27 PH, BLOOD (BEAKER) (test bvqg=7602) 7.42 [id number] 06:17:00 Test Item Value Reference Range Comments PHOSPHORUS (BEAKER) (test nyqn=730) 3.3 mg/dL 2.3-4.7 [id number] 06:17:00 Test Item Value Reference Range Comments MAGNESIUM (BEAKER) (test mhpq=671) 1.8 mg/dL 1.6-2.6 BASIC METABOLIC [id number] 06:17:00 Test Item Value Reference Range Comments SODIUM (BEAKER) (test 131 meq/L 136-145 fkdv=235) POTASSIUM (BEAKER) (test 4.5 meq/L 3.5-5.1 cblv=306) CHLORIDE (BEAKER) (test 103 meq/L 98-107 pjei=817) CO2 (BEAKER) (test 21 meq/L 22-29 qkky=672) BLOOD UREA NITROGEN 43 mg/dL 7-21 (BEAKER) (test zgyd=850) CREATININE (BEAKER) (test 1.74 mg/dL 0.57-1.25 iitf=382) GLUCOSE RANDOM (BEAKER) 126 mg/dL 70-105 (test pdwa=341) CALCIUM (BEAKER) (test 8.1 mg/dL 8.4-10.2 qwnt=062) EGFR (BEAKER) (test 30 mL/min/1.73 sq m ESTIMATED GFR IS NOT kjnv=8074) ACCURATE CREATININE CLEARANCE IN PREDICTING GLOMERULAR FILTRATION RATE. ESTIMATED GFR IS NOT APPLICABLE FOR DIALYSIS PATIENTS. CBC W/PLT COUNT & AUTO [id number] 05:07:00 Test Item Value Reference Range Comments WHITE BLOOD CELL COUNT (BEAKER) (test gskw=839) 5.9 K/ L 3.5-10.5 RED BLOOD CELL COUNT (BEAKER) (test oshr=363) 3.16 M/ L 3.93-5.22 HEMOGLOBIN (BEAKER) (test foah=800) 8.2 GM/DL 11.2-15.7 HEMATOCRIT (BEAKER) (test rusj=553) 26.6 % 34.1-44.9 MEAN CORPUSCULAR VOLUME (BEAKER) (test ytny=708) 84.2 fL 79.4-94.8 MEAN CORPUSCULAR HEMOGLOBIN (BEAKER) (test 25.9 pg 25.6-32.2 wtaz=755) MEAN CORPUSCULAR HEMOGLOBIN CONC (BEAKER) (test 30.8 GM/DL 32.2-35.5 wwzj=477) RED CELL DISTRIBUTION WIDTH (BEAKER) (test 15.1 % 11.7-14.4 samo=805) PLATELET COUNT (BEAKER) (test mmpo=038) 320 K/CU MM 150-450 MEAN PLATELET VOLUME (BEAKER) (test blox=890) 9.6 fL 9.4-12.3 NUCLEATED RED BLOOD CELLS (BEAKER) (test 0 /100 WBC 0-0 hipm=515) NEUTROPHILS RELATIVE PERCENT (BEAKER) (test 65 % osrl=731) LYMPHOCYTES RELATIVE PERCENT (BEAKER) (test 24 % xusu=081) MONOCYTES RELATIVE PERCENT (BEAKER) (test 8 % lvdq=407) EOSINOPHILS RELATIVE PERCENT (BEAKER) (test 2 % kide=316) BASOPHILS RELATIVE PERCENT (BEAKER) (test 1 % bifx=751) NEUTROPHILS ABSOLUTE COUNT (BEAKER) (test 3.84 K/ L 1.56-6.13 ihas=839) LYMPHOCYTES ABSOLUTE COUNT (BEAKER) (test 1.41 K/ L 1.18-3.74 vrtj=929) MONOCYTES ABSOLUTE COUNT (BEAKER) (test 0.47 K/ L 0.24-0.36 uyfz=798) EOSINOPHILS ABSOLUTE COUNT (BEAKER) (test 0.11 K/ L 0.04-0.36 gzcd=867) BASOPHILS ABSOLUTE COUNT (BEAKER) (test 0.05 K/ L 0.01-0.08 tjdt=123) IMMATURE GRANULOCYTES-RELATIVE PERCENT (BEAKER) 1 % 0-1 (test eyqb=5901) POCT-GLUCOSE [id number] 20:56:00 Test Item Value Reference Range Comments POC-GLUCOSE METER (BEAKER) 196 mg/dL 70-110 TESTED AT [facility] [address] [facility] (test lebu=0087) [facility] [address] POCT-GLUCOSE [id number] 16:42:00 Test Item Value Reference Range Comments POC-GLUCOSE METER (BEAKER) 196 mg/dL 70-110 TESTED AT [facility] [address] [facility] (test lnzz=7023) [facility] [address] POCT-GLUCOSE [id number] 11:45:00 Test Item Value Reference Range Comments POC-GLUCOSE METER (BEAKER) 215 mg/dL 70-110 TESTED AT [place] [id number] [facility] (test feur=4695) [facility] [address] RAD, CHEST, 1 VIEW, NON [id number] 11:15:00Reason for exam:->s/p ACBShould this be performed at the bedside?->YesFINAL REPORT Chest one view compared to May 28, 2017 Discussion: Airspace opacities are seen in both lower lung regions, probably atelectasis. Correlate clinically for infection. I could not exclude small effusions. No pneumothorax. Upper lungs clear. Signed: Jeannette Nava Verified Date/Time: 2017 11:15:07 Reading Location: [facility] Radiology Reading Room CALCIUM, [id number] 09:21:00 Test Item Value Reference Range Comments CALCIUM IONIZED (BEAKER) (test icne=324) 1.11 mmol/L 1.12-1.27 PH, BLOOD (BEAKER) (test rwzo=0235) 7.36 BASIC METABOLIC [id number] 07:37:00 Test Item Value Reference Range Comments SODIUM (BEAKER) (test 135 meq/L 136-145 dokr=517) POTASSIUM (BEAKER) (test 4.9 meq/L 3.5-5.1 qdpq=295) CHLORIDE (BEAKER) (test 105 meq/L 98-107 cttp=947) CO2 (BEAKER) (test 25 meq/L 22-29 gxkr=668) BLOOD UREA NITROGEN 44 mg/dL 7-21 (BEAKER) (test ufog=665) CREATININE (BEAKER) (test 1.76 mg/dL 0.57-1.25 wtdw=894) GLUCOSE RANDOM (BEAKER) 136 mg/dL 70-105 (test oqfr=019) CALCIUM (BEAKER) (test 8.2 mg/dL 8.4-10.2 rroe=702) EGFR (BEAKER) (test 29 mL/min/1.73 sq m ESTIMATED GFR IS NOT cchj=2387) ACCURATE CREATININE CLEARANCE IN PREDICTING GLOMERULAR FILTRATION RATE. ESTIMATED GFR IS NOT APPLICABLE FOR DIALYSIS PATIENTS. [id number] 07:28:00 Test Item Value Reference Range Comments PHOSPHORUS (BEAKER) (test yvfv=619) 3.8 mg/dL 2.3-4.7 [id number] 07:28:00 Test Item Value Reference Range Comments MAGNESIUM (BEAKER) (test dnrp=062) 1.9 mg/dL 1.6-2.6 CBC W/PLT COUNT & AUTO [id number] 07:26:00 Test Item Value Reference Range Comments WHITE BLOOD CELL COUNT (BEAKER) (test pzbz=859) 6.3 K/ L 3.5-10.5 RED BLOOD CELL COUNT (BEAKER) (test fbhl=413) 3.32 M/ L 3.93-5.22 HEMOGLOBIN (BEAKER) (test ykil=335) 8.5 GM/DL 11.2-15.7 HEMATOCRIT (BEAKER) (test vjne=405) 27.8 % 34.1-44.9 MEAN CORPUSCULAR VOLUME (BEAKER) (test nkqv=615) 83.7 fL 79.4-94.8 MEAN CORPUSCULAR HEMOGLOBIN (BEAKER) (test 25.6 pg 25.6-32.2 craf=348) MEAN CORPUSCULAR HEMOGLOBIN CONC (BEAKER) (test 30.6 GM/DL 32.2-35.5 mrbm=408) RED CELL DISTRIBUTION WIDTH (BEAKER) (test 15.0 % 11.7-14.4 ynos=690) PLATELET COUNT (BEAKER) (test manx=162) 336 K/CU MM 150-450 MEAN PLATELET VOLUME (BEAKER) (test xleu=365) 9.8 fL 9.4-12.3 NUCLEATED RED BLOOD CELLS (BEAKER) (test 0 /100 WBC 0-0 spnm=993) NEUTROPHILS RELATIVE PERCENT (BEAKER) (test 65 % gotu=595) LYMPHOCYTES RELATIVE PERCENT (BEAKER) (test 24 % qrem=287) MONOCYTES RELATIVE PERCENT (BEAKER) (test 7 % lzcp=713) EOSINOPHILS RELATIVE PERCENT (BEAKER) (test 3 % wcbc=424) BASOPHILS RELATIVE PERCENT (BEAKER) (test 0 % zgty=898) NEUTROPHILS ABSOLUTE COUNT (BEAKER) (test 4.13 K/ L 1.56-6.13 xxva=969) LYMPHOCYTES ABSOLUTE COUNT (BEAKER) (test 1.50 K/ L 1.18-3.74 nqhm=249) MONOCYTES ABSOLUTE COUNT (BEAKER) (test 0.44 K/ L 0.24-0.36 knfg=097) EOSINOPHILS ABSOLUTE COUNT (BEAKER) (test 0.20 K/ L 0.04-0.36 rudq=806) BASOPHILS ABSOLUTE COUNT (BEAKER) (test 0.02 K/ L 0.01-0.08 zowj=916) IMMATURE GRANULOCYTES-RELATIVE PERCENT (BEAKER) 1 % 0-1 (test konk=5179) POCT-GLUCOSE [id number] 07:21:00 Test Item Value Reference Range Comments POC-GLUCOSE METER (BEAKER) 146 mg/dL 70-110 TESTED AT [address] (test tsiz=5132) [place] [address] POCT-GLUCOSE [id number] 22:02:00 Test Item Value Reference Range Comments POC-GLUCOSE METER (BEAKER) 201 mg/dL 70-110 TESTED AT [address] (test oorr=3998) [place] [address] POCT-GLUCOSE [id number] 18:27:00 Test Item Value Reference Range Comments POC-GLUCOSE METER (BEAKER) 240 mg/dL 70-110 TESTED AT [address] (test kkym=4224) [place] [id number] POCT-GLUCOSE [id number] 12:13:00 Test Item Value Reference Range Comments POC-GLUCOSE METER (BEAKER) 193 mg/dL 70-110 TESTED AT [address] (test hmkv=5799) [place] [id number] POCT-GLUCOSE [id number] 09:02:00 Test Item Value Reference Range Comments POC-GLUCOSE METER (BEAKER) 132 mg/dL 70-110 TESTED AT [address] (test wphw=1946) [place] [id number] CALCIUM, [id number] 05:42:00 Test Item Value Reference Range Comments CALCIUM IONIZED (BEAKER) (test shof=269) 1.12 mmol/L 1.12-1.27 PH, BLOOD (BEAKER) (test ardl=3654) 7.34 COMPREHENSIVE METABOLIC [id number] 05:33:00 Test Item Value Reference Range Comments TOTAL PROTEIN (BEAKER) 5.9 gm/dL 6.0-8.3 (test ndbw=801) ALBUMIN (BEAKER) (test 2.7 g/dL 3.5-5.0 aitt=6990) ALKALINE PHOSPHATASE 130 U/L 40-150 (BEAKER) (test budi=121) BILIRUBIN TOTAL (BEAKER) 0.3 mg/dL 0.2-1.2 (test ursu=874) SODIUM (BEAKER) (test 135 meq/L 136-145 ugnk=929) POTASSIUM (BEAKER) (test 4.7 meq/L 3.5-5.1 qjqx=869) CHLORIDE (BEAKER) (test 105 meq/L 98-107 kixm=139) CO2 (BEAKER) (test 24 meq/L 22-29 voqh=172) BLOOD UREA NITROGEN 42 mg/dL 7-21 (BEAKER) (test sxgn=015) CREATININE (BEAKER) (test 1.78 mg/dL 0.57-1.25 ufev=776) GLUCOSE RANDOM (BEAKER) 129 mg/dL 70-105 (test ixrx=976) CALCIUM (BEAKER) (test 8.5 mg/dL 8.4-10.2 bboe=973) AST (SGOT) (BEAKER) (test 23 U/L 5-34 pqfu=407) ALT (SGPT) (BEAKER) (test 15 U/L 6-55 usej=861) EGFR (BEAKER) (test 29 mL/min/1.73 sq m ESTIMATED GFR IS NOT bohc=1994) ACCURATE CREATININE CLEARANCE IN PREDICTING GLOMERULAR FILTRATION RATE. ESTIMATED GFR IS NOT APPLICABLE FOR DIALYSIS PATIENTS. [id number] 05:32:00 Test Item Value Reference Range Comments PHOSPHORUS (BEAKER) (test dmor=923) 3.6 mg/dL 2.3-4.7 [id number] 05:32:00 Test Item Value Reference Range Comments MAGNESIUM (BEAKER) (test xgde=608) 2.2 mg/dL 1.6-2.6 CBC W/PLT COUNT & AUTO [id number] 05:01:00 Test Item Value Reference Range Comments WHITE BLOOD CELL COUNT (BEAKER) (test cisi=215) 6.4 K/ L 3.5-10.5 RED BLOOD CELL COUNT (BEAKER) (test gcrv=516) 3.43 M/ L 3.93-5.22 HEMOGLOBIN (BEAKER) (test xfsw=624) 8.9 GM/DL 11.2-15.7 HEMATOCRIT (BEAKER) (test eejs=468) 28.9 % 34.1-44.9 MEAN CORPUSCULAR VOLUME (BEAKER) (test crij=178) 84.3 fL 79.4-94.8 MEAN CORPUSCULAR HEMOGLOBIN (BEAKER) (test 25.9 pg 25.6-32.2 geeb=304) MEAN CORPUSCULAR HEMOGLOBIN CONC (BEAKER) (test 30.8 GM/DL 32.2-35.5 edko=931) RED CELL DISTRIBUTION WIDTH (BEAKER) (test 15.0 % 11.7-14.4 dflt=940) PLATELET COUNT (BEAKER) (test gfuz=507) 324 K/CU MM 150-450 MEAN PLATELET VOLUME (BEAKER) (test tirz=478) 9.3 fL 9.4-12.3 NUCLEATED RED BLOOD CELLS (BEAKER) (test 0 /100 WBC 0-0 hsbj=448) NEUTROPHILS RELATIVE PERCENT (BEAKER) (test 62 % ravl=806) LYMPHOCYTES RELATIVE PERCENT (BEAKER) (test 25 % foor=324) MONOCYTES RELATIVE PERCENT (BEAKER) (test 8 % gvum=463) EOSINOPHILS RELATIVE PERCENT (BEAKER) (test 4 % awhy=093) BASOPHILS RELATIVE PERCENT (BEAKER) (test 1 % uvoz=908) NEUTROPHILS ABSOLUTE COUNT (BEAKER) (test 3.93 K/ L 1.56-6.13 ltyw=646) LYMPHOCYTES ABSOLUTE COUNT (BEAKER) (test 1.60 K/ L 1.18-3.74 ejud=745) MONOCYTES ABSOLUTE COUNT (BEAKER) (test 0.51 K/ L 0.24-0.36 elpa=731) EOSINOPHILS ABSOLUTE COUNT (BEAKER) (test 0.25 K/ L 0.04-0.36 dgfl=467) BASOPHILS ABSOLUTE COUNT (BEAKER) (test 0.03 K/ L 0.01-0.08 apmj=465) IMMATURE GRANULOCYTES-RELATIVE PERCENT (BEAKER) 1 % 0-1 (test pmao=0464) POCT-GLUCOSE [id number] 21:04:00 Test Item Value Reference Range Comments POC-GLUCOSE METER (BEAKER) 165 mg/dL 70-110 TESTED AT [address] (test inxt=2357) [place] [id number] POCT-GLUCOSE [id number] 17:30:00 Test Item Value Reference Range Comments POC-GLUCOSE METER (BEAKER) 236 mg/dL 70-110 TESTED AT [address] (test gyvf=9999) [place] [address] RAD, CHEST, 1 VIEW, NON [id number] 13:53:00Reason for exam:->assess for ill-defined opacityShould this [...] [place] Verified Date/Time: 05/28/2017 13:53:03 Reading Location: [address] Radiology Reading Room Electronically signed by: LUIS ALBERTO CALLAWAY M.D. on 01:53 PMPOCT-GLUCOSE [id number] 11:53:00 Test Item Value Reference Range Comments POC-GLUCOSE METER (BEAKER) 215 mg/dL 70-110 TESTED AT [address] (test rlvk=9106) [facility] [address] POCT-GLUCOSE [id number] 08:32:00 Test Item Value Reference Range Comments POC-GLUCOSE METER (BEAKER) 168 mg/dL 70-110 TESTED AT [address] (test lzpj=1893) [place] [id number] CALCIUM, [id number] 05:44:00 Test Item Value Reference Range Comments CALCIUM IONIZED (BEAKER) (test spjt=698) 1.09 mmol/L 1.12-1.27 PH, BLOOD (BEAKER) (test ypal=8293) 7.38 [id number] 05:44:00 Test Item Value Reference Range Comments PHOSPHORUS (BEAKER) (test qawi=325) 3.5 mg/dL 2.3-4.7 [id number] 05:44:00 Test Item Value Reference Range Comments MAGNESIUM (BEAKER) (test bagt=726) 1.9 mg/dL 1.6-2.6 BASIC METABOLIC [id number] 05:44:00 Test Item Value Reference Range Comments SODIUM (BEAKER) (test 137 meq/L 136-145 fokm=784) POTASSIUM (BEAKER) (test 4.5 meq/L 3.5-5.1 klwm=342) CHLORIDE (BEAKER) (test 108 meq/L 98-107 xyix=255) CO2 (BEAKER) (test 23 meq/L 22-29 apvr=223) BLOOD UREA NITROGEN 41 mg/dL 7-21 (BEAKER) (test efaz=984) CREATININE (BEAKER) (test 1.41 mg/dL 0.57-1.25 gsyh=944) GLUCOSE RANDOM (BEAKER) 113 mg/dL 70-105 (test bseh=176) CALCIUM (BEAKER) (test 8.1 mg/dL 8.4-10.2 aaly=374) EGFR (BEAKER) (test 38 mL/min/1.73 sq m ESTIMATED GFR IS NOT yiez=3636) ACCURATE CREATININE CLEARANCE IN PREDICTING GLOMERULAR FILTRATION RATE. ESTIMATED GFR IS NOT APPLICABLE FOR DIALYSIS PATIENTS. CBC W/PLT COUNT & AUTO [id number] 05:05:00 Test Item Value Reference Range Comments WHITE BLOOD CELL COUNT (BEAKER) (test lvmf=871) 6.3 K/ L 3.5-10.5 RED BLOOD CELL COUNT (BEAKER) (test eiyo=253) 3.40 M/ L 3.93-5.22 HEMOGLOBIN (BEAKER) (test jqzs=183) 8.8 GM/DL 11.2-15.7 HEMATOCRIT (BEAKER) (test fplq=111) 29.0 % 34.1-44.9 MEAN CORPUSCULAR VOLUME (BEAKER) (test ktlv=840) 85.3 fL 79.4-94.8 MEAN CORPUSCULAR HEMOGLOBIN (BEAKER) (test 25.9 pg 25.6-32.2 iktn=422) MEAN CORPUSCULAR HEMOGLOBIN CONC (BEAKER) (test 30.3 GM/DL 32.2-35.5 uyqg=415) RED CELL DISTRIBUTION WIDTH (BEAKER) (test 14.9 % 11.7-14.4 wrqv=820) PLATELET COUNT (BEAKER) (test odix=290) 282 K/CU MM 150-450 MEAN PLATELET VOLUME (BEAKER) (test qhbv=498) 9.5 fL 9.4-12.3 NUCLEATED RED BLOOD CELLS (BEAKER) (test 0 /100 WBC 0-0 wafq=949) NEUTROPHILS RELATIVE PERCENT (BEAKER) (test 59 % rnia=210) LYMPHOCYTES RELATIVE PERCENT (BEAKER) (test 28 % eqno=719) MONOCYTES RELATIVE PERCENT (BEAKER) (test 7 % ktay=659) EOSINOPHILS RELATIVE PERCENT (BEAKER) (test 4 % xwii=086) BASOPHILS RELATIVE PERCENT (BEAKER) (test 1 % fwci=927) NEUTROPHILS ABSOLUTE COUNT (BEAKER) (test 3.75 K/ L 1.56-6.13 zexx=287) LYMPHOCYTES ABSOLUTE COUNT (BEAKER) (test 1.80 K/ L 1.18-3.74 qikw=014) MONOCYTES ABSOLUTE COUNT (BEAKER) (test 0.45 K/ L 0.24-0.36 uehv=982) EOSINOPHILS ABSOLUTE COUNT (BEAKER) (test 0.25 K/ L 0.04-0.36 aiae=820) BASOPHILS ABSOLUTE COUNT (BEAKER) (test 0.05 K/ L 0.01-0.08 igro=506) IMMATURE GRANULOCYTES-RELATIVE PERCENT (BEAKER) 1 % 0-1 (test pwpv=0729) POCT-GLUCOSE [id number] 21:03:00 Test Item Value Reference Range Comments POC-GLUCOSE METER (BEAKER) 173 mg/dL 70-110 TESTED AT [address] (test sqdm=7582) [place] [address] [id number] 18:15:00 Test Item Value Reference Range Comments ACTIVATED CLOTTING TIME 147 sec TESTED AT [address] (BEAKER) (test ooyx=398) [place] [address] [id number] 18:15:00 Test Item Value Reference Range Comments ACTIVATED CLOTTING TIME 246 sec TESTED AT [place] [id number] [address] (BEAKER) (test poyh=885) [facility] [address] POCT-GLUCOSE [id number] 12:39:00 Test Item Value Reference Range Comments POC-GLUCOSE METER (BEAKER) 219 mg/dL 70-110 TESTED AT [address] (test bjib=2987) [facility] [address] RAD, CHEST, 1 VIEW, NON [id number] 10:11:00Reason for exam:->pl effusionShould this be performed at the bedside?->YesFINAL REPORT Chest one view compared to May 26 Discussion: There is cardiac prominence. Upper lungs are clear. Ill-defined basilar densities are similar probably atelectasis. No gross effusion or pneumothorax with bilateral chest tubes in place. Signed: Jeannette Nava Verified Date/Time: 2017 10:11:44 Reading Location: [facility] Radiology Reading Room POCT- GLUCOSE [id number] 07:05:00 Test Item Value Reference Range Comments POC-GLUCOSE METER (BEAKER) 167 mg/dL 70-110 TESTED AT [address] (test gqtq=6464) [facility] [address] CALCIUM, [id number] 06:20:00 Test Item Value Reference Range Comments CALCIUM IONIZED (BEAKER) (test uqox=028) 0.98 mmol/L 1.12-1.27 PH, BLOOD (BEAKER) (test hqim=0673) 7.50 [id number] 04:56:00 Test Item Value Reference Range Comments PHOSPHORUS (BEAKER) (test wbal=038) 2.6 mg/dL 2.3-4.7 [id number] 04:56:00 Test Item Value Reference Range Comments MAGNESIUM (BEAKER) (test lmfq=345) 2.0 mg/dL 1.6-2.6 BASIC METABOLIC [id number] 04:56:00 Test Item Value Reference Range Comments SODIUM (BEAKER) (test 135 meq/L 136-145 qvkx=360) POTASSIUM (BEAKER) (test 4.5 meq/L 3.5-5.1 ftha=024) CHLORIDE (BEAKER) (test 105 meq/L 98-107 jcrh=069) CO2 (BEAKER) (test 22 meq/L 22-29 ycex=533) BLOOD UREA NITROGEN 47 mg/dL 7-21 (BEAKER) (test ngem=646) CREATININE (BEAKER) (test 1.44 mg/dL 0.57-1.25 vwjq=679) GLUCOSE RANDOM (BEAKER) 177 mg/dL 70-105 (test yxnq=913) CALCIUM (BEAKER) (test 8.0 mg/dL 8.4-10.2 khnl=108) EGFR (BEAKER) (test 37 mL/min/1.73 sq m ESTIMATED GFR IS NOT zemr=3949) ACCURATE CREATININE CLEARANCE IN PREDICTING GLOMERULAR FILTRATION RATE. ESTIMATED GFR IS NOT APPLICABLE FOR DIALYSIS PATIENTS. CBC W/PLT COUNT & AUTO [id number] 04:36:00 Test Item Value Reference Range Comments WHITE BLOOD CELL COUNT (BEAKER) (test vwuj=615) 6.1 K/ L 3.5-10.5 RED BLOOD CELL COUNT (BEAKER) (test gagj=311) 3.35 M/ L 3.93-5.22 HEMOGLOBIN (BEAKER) (test zizw=545) 8.6 GM/DL 11.2-15.7 HEMATOCRIT (BEAKER) (test agas=456) 28.0 % 34.1-44.9 MEAN CORPUSCULAR VOLUME (BEAKER) (test eglg=032) 83.6 fL 79.4-94.8 MEAN CORPUSCULAR HEMOGLOBIN (BEAKER) (test 25.7 pg 25.6-32.2 equq=168) MEAN CORPUSCULAR HEMOGLOBIN CONC (BEAKER) (test 30.7 GM/DL 32.2-35.5 ywis=730) RED CELL DISTRIBUTION WIDTH (BEAKER) (test 14.7 % 11.7-14.4 pulu=537) PLATELET COUNT (BEAKER) (test ciel=364) 280 K/CU MM 150-450 MEAN PLATELET VOLUME (BEAKER) (test nthy=521) 9.9 fL 9.4-12.3 NUCLEATED RED BLOOD CELLS (BEAKER) (test 0 /100 WBC 0-0 sdoy=476) NEUTROPHILS RELATIVE PERCENT (BEAKER) (test 65 % hkje=096) LYMPHOCYTES RELATIVE PERCENT (BEAKER) (test 23 % zoqi=635) MONOCYTES RELATIVE PERCENT (BEAKER) (test 7 % eupd=214) EOSINOPHILS RELATIVE PERCENT (BEAKER) (test 4 % ajqa=487) BASOPHILS RELATIVE PERCENT (BEAKER) (test 1 % bagh=646) NEUTROPHILS ABSOLUTE COUNT (BEAKER) (test 3.97 K/ L 1.56-6.13 puir=081) LYMPHOCYTES ABSOLUTE COUNT (BEAKER) (test 1.41 K/ L 1.18-3.74 edct=778) MONOCYTES ABSOLUTE COUNT (BEAKER) (test 0.44 K/ L 0.24-0.36 neap=843) EOSINOPHILS ABSOLUTE COUNT (BEAKER) (test 0.22 K/ L 0.04-0.36 mrfr=947) BASOPHILS ABSOLUTE COUNT (BEAKER) (test 0.05 K/ L 0.01-0.08 qtxe=035) IMMATURE GRANULOCYTES-RELATIVE PERCENT (BEAKER) 1 % 0-1 (test cdby=7472) POCT-GLUCOSE [id number] 21:29:00 Test Item Value Reference Range Comments POC-GLUCOSE METER (BEAKER) 147 mg/dL 70-110 TESTED AT [address] (test lzns=5222) [place] [address] POCT-GLUCOSE [id number] 17:51:00 Test Item Value Reference Range Comments POC-GLUCOSE METER (BEAKER) 224 mg/dL 70-110 TESTED AT [address] (test idle=2617) [place] [address] POCT-GLUCOSE [id number] 13:53:00 Test Item Value Reference Range Comments POC-GLUCOSE METER (BEAKER) 182 mg/dL 70-110 TESTED AT [address] (test khdm=2866) [place] [id number] RAD, CHEST, 1 VIEW, NON [id number] 08:44:00Reason for exam:->pl effusionShould this be performed [...] Verified Date/Time : 05/26/2017 08:44:25 Reading Location: [address] Radiology Reading Room POCT- GLUCOSE [id number] 07:43:00 Test Item Value Reference Range Comments POC-GLUCOSE METER (BEAKER) 113 mg/dL 70-110 TESTED AT [facility] [address] [facility] (test omax=5100) [facility] [address] CALCIUM, [id number] 06:31:00 Test Item Value Reference Range Comments CALCIUM IONIZED (BEAKER) (test jonb=738) 1.07 mmol/L 1.12-1.27 PH, BLOOD (BEAKER) (test kcmm=7389) 7.38 [id number] 04:51:00 Test Item Value Reference Range Comments PHOSPHORUS (BEAKER) (test obmx=181) 3.2 mg/dL 2.3-4.7 [id number] 04:51:00 Test Item Value Reference Range Comments MAGNESIUM (BEAKER) (test zywi=549) 2.1 mg/dL 1.6-2.6 BASIC METABOLIC [id number] 04:51:00 Test Item Value Reference Range Comments SODIUM (BEAKER) (test 139 meq/L 136-145 oaie=180) POTASSIUM (BEAKER) (test 4.1 meq/L 3.5-5.1 xuoi=829) CHLORIDE (BEAKER) (test 106 meq/L 98-107 ywlb=841) CO2 (BEAKER) (test 24 meq/L 22-29 auff=960) BLOOD UREA NITROGEN 52 mg/dL 7-21 (BEAKER) (test azms=833) CREATININE (BEAKER) (test 1.52 mg/dL 0.57-1.25 umvg=369) GLUCOSE RANDOM (BEAKER) 108 mg/dL 70-105 (test piml=619) CALCIUM (BEAKER) (test 8.4 mg/dL 8.4-10.2 kmfm=135) EGFR (BEAKER) (test 35 mL/min/1.73 sq m ESTIMATED GFR IS NOT fdcl=2605) ACCURATE CREATININE CLEARANCE IN PREDICTING GLOMERULAR FILTRATION RATE. ESTIMATED GFR IS NOT APPLICABLE FOR DIALYSIS PATIENTS. CBC W/PLT COUNT & AUTO [id number] 04:27:00 Test Item Value Reference Range Comments WHITE BLOOD CELL COUNT (BEAKER) (test nnpm=078) 7.2 K/ L 3.5-10.5 RED BLOOD CELL COUNT (BEAKER) (test uoyo=851) 3.53 M/ L 3.93-5.22 HEMOGLOBIN (BEAKER) (test apus=906) 9.1 GM/DL 11.2-15.7 HEMATOCRIT (BEAKER) (test nhqw=796) 29.5 % 34.1-44.9 MEAN CORPUSCULAR VOLUME (BEAKER) (test bjbp=457) 83.6 fL 79.4-94.8 MEAN CORPUSCULAR HEMOGLOBIN (BEAKER) (test 25.8 pg 25.6-32.2 rhiv=353) MEAN CORPUSCULAR HEMOGLOBIN CONC (BEAKER) (test 30.8 GM/DL 32.2-35.5 irmj=617) RED CELL DISTRIBUTION WIDTH (BEAKER) (test 14.6 % 11.7-14.4 hcba=544) PLATELET COUNT (BEAKER) (test szvj=919) 296 K/CU MM 150-450 MEAN PLATELET VOLUME (BEAKER) (test pcys=379) 9.5 fL 9.4-12.3 NUCLEATED RED BLOOD CELLS (BEAKER) (test 0 /100 WBC 0-0 kgzr=835) NEUTROPHILS RELATIVE PERCENT (BEAKER) (test 67 % gnzu=537) LYMPHOCYTES RELATIVE PERCENT (BEAKER) (test 21 % ycvz=913) MONOCYTES RELATIVE PERCENT (BEAKER) (test 7 % qwrf=112) EOSINOPHILS RELATIVE PERCENT (BEAKER) (test 4 % rmwz=104) BASOPHILS RELATIVE PERCENT (BEAKER) (test 1 % mxpt=148) NEUTROPHILS ABSOLUTE COUNT (BEAKER) (test 4.79 K/ L 1.56-6.13 xghz=079) LYMPHOCYTES ABSOLUTE COUNT (BEAKER) (test 1.49 K/ L 1.18-3.74 agtx=812) MONOCYTES ABSOLUTE COUNT (BEAKER) (test 0.50 K/ L 0.24-0.36 nejn=562) EOSINOPHILS ABSOLUTE COUNT (BEAKER) (test 0.30 K/ L 0.04-0.36 ztdo=242) BASOPHILS ABSOLUTE COUNT (BEAKER) (test 0.05 K/ L 0.01-0.08 nukv=585) IMMATURE GRANULOCYTES-RELATIVE PERCENT (BEAKER) 0 % 0-1 (test rxdi=6678) POCT-GLUCOSE [id number] 23:48:00 Test Item Value Reference Range Comments POC-GLUCOSE METER (BEAKER) 123 mg/dL 70-110 TESTED AT [address] (test hkyd=8095) [place] [address] POCT-GLUCOSE [id number] 16:46:00 Test Item Value Reference Range Comments POC-GLUCOSE METER (BEAKER) 178 mg/dL 70-110 TESTED AT [address] (test xpoc=0266) [place] [address] BASIC METABOLIC [id number] 05:53:00 Test Item Value Reference Range Comments SODIUM (BEAKER) (test 139 meq/L 136-145 eaof=826) POTASSIUM (BEAKER) (test 3.9 meq/L 3.5-5.1 xbyi=818) CHLORIDE (BEAKER) (test 106 meq/L 98-107 qtox=465) CO2 (BEAKER) (test 23 meq/L 22-29 gtty=675) BLOOD UREA NITROGEN 62 mg/dL 7-21 (BEAKER) (test axec=408) CREATININE (BEAKER) (test 2.05 mg/dL 0.57-1.25 ohhr=378) GLUCOSE RANDOM (BEAKER) 87 mg/dL 70-105 (test gfeo=773) CALCIUM (BEAKER) (test 7.9 mg/dL 8.4-10.2 gsec=746) EGFR (BEAKER) (test 25 mL/min/1.73 sq m ESTIMATED GFR IS NOT fyzm=3764) ACCURATE CREATININE CLEARANCE IN PREDICTING GLOMERULAR FILTRATION RATE. ESTIMATED GFR IS NOT APPLICABLE FOR DIALYSIS PATIENTS. [id number] 05:52:00 Test Item Value Reference Range Comments PHOSPHORUS (BEAKER) (test bisr=026) 4.2 mg/dL 2.3-4.7 [id number] 05:52:00 Test Item Value Reference Range Comments MAGNESIUM (BEAKER) (test qoqq=239) 2.3 mg/dL 1.6-2.6 CALCIUM, [id number] 05:27:00 Test Item Value Reference Range Comments CALCIUM IONIZED (BEAKER) (test bwjr=069) 1.12 mmol/L 1.12-1.27 PH, BLOOD (BEAKER) (test yjfw=8237) 7.38 CBC W/PLT COUNT & AUTO [id number] 05:07:00 Test Item Value Reference Range Comments WHITE BLOOD CELL COUNT (BEAKER) (test fuwb=485) 8.4 K/ L 3.5-10.5 RED BLOOD CELL COUNT (BEAKER) (test lsyv=878) 3.16 M/ L 3.93-5.22 HEMOGLOBIN (BEAKER) (test dmoo=764) 8.2 GM/DL 11.2-15.7 HEMATOCRIT (BEAKER) (test kxad=582) 26.5 % 34.1-44.9 MEAN CORPUSCULAR VOLUME (BEAKER) (test ufey=999) 83.9 fL 79.4-94.8 MEAN CORPUSCULAR HEMOGLOBIN (BEAKER) (test 25.9 pg 25.6-32.2 qpha=317) MEAN CORPUSCULAR HEMOGLOBIN CONC (BEAKER) (test 30.9 GM/DL 32.2-35.5 zeal=721) RED CELL DISTRIBUTION WIDTH (BEAKER) (test 14.6 % 11.7-14.4 clqe=593) PLATELET COUNT (BEAKER) (test bahl=690) 256 K/CU MM 150-450 MEAN PLATELET VOLUME (BEAKER) (test xhfc=043) 10.0 fL 9.4-12.3 NUCLEATED RED BLOOD CELLS (BEAKER) (test 0 /100 WBC 0-0 cntt=473) NEUTROPHILS RELATIVE PERCENT (BEAKER) (test 63 % lffa=721) LYMPHOCYTES RELATIVE PERCENT (BEAKER) (test 25 % aecd=818) MONOCYTES RELATIVE PERCENT (BEAKER) (test 8 % iplb=253) EOSINOPHILS RELATIVE PERCENT (BEAKER) (test 3 % lbmo=345) BASOPHILS RELATIVE PERCENT (BEAKER) (test 1 % lyfi=435) NEUTROPHILS ABSOLUTE COUNT (BEAKER) (test 5.27 K/ L 1.56-6.13 nyru=869) LYMPHOCYTES ABSOLUTE COUNT (BEAKER) (test 2.09 K/ L 1.18-3.74 xhev=320) MONOCYTES ABSOLUTE COUNT (BEAKER) (test 0.63 K/ L 0.24-0.36 ivvu=989) EOSINOPHILS ABSOLUTE COUNT (BEAKER) (test 0.27 K/ L 0.04-0.36 gdpr=025) BASOPHILS ABSOLUTE COUNT (BEAKER) (test 0.05 K/ L 0.01-0.08 mrqj=347) IMMATURE GRANULOCYTES-RELATIVE PERCENT (BEAKER) 1 % 0-1 (test mxew=5683) RAD, CHEST, 1 VIEW, NON [id number] 04:45:00Reason for exam:->pl effusionShould this be performed [...] MDReport Verified Date/Time: 05/25/2017 04:45:08 Reading Location: [address] Body Reading Room POCT-GLUCOSE [id number] 01:52:00 Test Item Value Reference Range Comments POC-GLUCOSE METER (BEAKER) 126 mg/dL 70-110 TESTED AT [address] (test rbol=4355) [facility] [address] POCT-GLUCOSE [id number] 13:07:00 Test Item Value Reference Range Comments POC-GLUCOSE METER (BEAKER) 118 mg/dL 70-110 TESTED AT [place] [id number] [facility] (test wvxj=7383) [place] [id number] BRONCHIAL CULTURE + GRAM [id number] 11:35:00 Test Item Value Reference Range Comments CULTURE (BEAKER) (test dfwt=4160) Amikacin (test code=1) Susceptible 0-16 , Resistant [...] >40 code=47) CULTURE (BEAKER) (test 4+ Bordetella ztvt=3625) bronchiseptica GRAM STAIN RESULT 1+ WBCs (BEAKER) (test qtqo=1029) GRAM STAIN RESULT <1+ gram positive (BEAKER) (test cocci in pairs bfui=272871) GRAM STAIN RESULT 1+ gram variable (BEAKER) (test rods drmu=831168) 1+ Normal respiratory todd presentRAD, CHEST, 1 VIEW, NON [id number] 06:50: 00Reason for exam:->pl effusionShould this be [...] MDReport Verified Date/Time: 05/24/2017 06:50:08 Reading Location: [address] Body Reading Room BASIC METABOLIC [id number] 04: 19:00 Test Item Value Reference Range Comments SODIUM (BEAKER) (test 136 meq/L 136-145 bjzo=777) POTASSIUM (BEAKER) (test 4.3 meq/L 3.5-5.1 wobc=142) CHLORIDE (BEAKER) (test 104 meq/L 98-107 oubu=898) CO2 (BEAKER) (test 20 meq/L 22-29 exbs=398) BLOOD UREA NITROGEN 61 mg/dL 7-21 (BEAKER) (test bdhy=204) CREATININE (BEAKER) (test 2.69 mg/dL 0.57-1.25 daeq=069) GLUCOSE RANDOM (BEAKER) 107 mg/dL 70-105 (test agff=489) CALCIUM (BEAKER) (test 7.8 mg/dL 8.4-10.2 thjk=456) EGFR (BEAKER) (test 18 mL/min/1.73 sq m ESTIMATED GFR IS NOT gisn=4399) ACCURATE CREATININE CLEARANCE IN PREDICTING GLOMERULAR FILTRATION RATE. ESTIMATED GFR IS NOT APPLICABLE FOR DIALYSIS PATIENTS. CALCIUM, [id number] 04:16:00 Test Item Value Reference Range Comments CALCIUM IONIZED (BEAKER) (test dotd=040) 1.06 mmol/L 1.12-1.27 PH, BLOOD (BEAKER) (test bqie=4188) 7.40 [id number] 04:11:00 Test Item Value Reference Range Comments PHOSPHORUS (BEAKER) (test igcu=291) 6.0 mg/dL 2.3-4.7 [id number] 04:11:00 Test Item Value Reference Range Comments MAGNESIUM (BEAKER) (test vqvw=011) 2.4 mg/dL 1.6-2.6 CBC W/PLT COUNT & AUTO [id number] 03:50:00 Test Item Value Reference Range Comments WHITE BLOOD CELL COUNT (BEAKER) (test fhgj=120) 9.5 K/ L 3.5-10.5 RED BLOOD CELL COUNT (BEAKER) (test kjma=325) 3.06 M/ L 3.93-5.22 HEMOGLOBIN (BEAKER) (test tmsn=091) 7.9 GM/DL 11.2-15.7 HEMATOCRIT (BEAKER) (test thxl=447) 25.5 % 34.1-44.9 MEAN CORPUSCULAR VOLUME (BEAKER) (test jhas=695) 83.3 fL 79.4-94.8 MEAN CORPUSCULAR HEMOGLOBIN (BEAKER) (test 25.8 pg 25.6-32.2 pxnk=702) MEAN CORPUSCULAR HEMOGLOBIN CONC (BEAKER) (test 31.0 GM/DL 32.2-35.5 acbr=087) RED CELL DISTRIBUTION WIDTH (BEAKER) (test 15.1 % 11.7-14.4 ztuj=478) PLATELET COUNT (BEAKER) (test dkvf=534) 224 K/CU MM 150-450 MEAN PLATELET VOLUME (BEAKER) (test rnbu=176) 10.5 fL 9.4-12.3 NUCLEATED RED BLOOD CELLS (BEAKER) (test 0 /100 WBC 0-0 izsx=199) NEUTROPHILS RELATIVE PERCENT (BEAKER) (test 70 % pxtq=346) LYMPHOCYTES RELATIVE PERCENT (BEAKER) (test 21 % tvzk=687) MONOCYTES RELATIVE PERCENT (BEAKER) (test 7 % viif=074) EOSINOPHILS RELATIVE PERCENT (BEAKER) (test 2 % ivfb=479) BASOPHILS RELATIVE PERCENT (BEAKER) (test 0 % gsue=163) NEUTROPHILS ABSOLUTE COUNT (BEAKER) (test 6.60 K/ L 1.56-6.13 rvdq=224) LYMPHOCYTES ABSOLUTE COUNT (BEAKER) (test 2.02 K/ L 1.18-3.74 iiof=778) MONOCYTES ABSOLUTE COUNT (BEAKER) (test 0.63 K/ L 0.24-0.36 erst=748) EOSINOPHILS ABSOLUTE COUNT (BEAKER) (test 0.15 K/ L 0.04-0.36 yqbz=706) BASOPHILS ABSOLUTE COUNT (BEAKER) (test 0.04 K/ L 0.01-0.08 oezl=104) IMMATURE GRANULOCYTES-RELATIVE PERCENT (BEAKER) 0 % 0-1 (test vumg=5051) POCT-GLUCOSE [id number] 20:45:00 Test Item Value Reference Range Comments POC-GLUCOSE METER (BEAKER) 143 mg/dL 70-110 TESTED AT [address] (test flic=8464) [facility] [address] POCT-GLUCOSE [id number] 20:45:00 Test Item Value Reference Range Comments POC-GLUCOSE METER (BEAKER) 145 mg/dL 70-110 TESTED AT [address] (test wubf=4821) [facility] [address] [id number] 13:37:00 Test Item Value Reference Range Comments PREALBUMIN (BEAKER) (test 10 mg/dL 14-45 Specimen slightly hemolyzed extl=348) OXYGEN SATURATION, [id number] 12:31:00 Test Item Value Reference Range Comments O2 SATURATION (MEASURED) (BEAKER) (test nxxt=8839) 94.5 % [id number] 11:02:00 Test Item Value Reference Range Comments PREALBUMIN (BEAKER) (test yksb=030) 10 mg/dL 14-45 RAD, CHEST, 1 VIEW, NON [id number] 05:14:00while patient is intubated or has chest [...] MDReport Verified Date/Time: 05/23/2017 05:14:04 Reading Location: [address] Body Reading Room BASIC METABOLIC [id number] 03:48:00 Test Item Value Reference Range Comments SODIUM (BEAKER) (test 138 meq/L 136-145 wzmf=392) POTASSIUM (BEAKER) (test 4.6 meq/L 3.5-5.1 Specimen slightly gcpp=648) hemolyzed CHLORIDE (BEAKER) (test 106 meq/L 98-107 sgrm=709) CO2 (BEAKER) (test 20 meq/L 22-29 ymzs=584) BLOOD UREA NITROGEN 54 mg/dL 7-21 (BEAKER) (test texw=200) CREATININE (BEAKER) (test 2.66 mg/dL 0.57-1.25 Specimen slightly pltq=741) hemolyzed GLUCOSE RANDOM (BEAKER) 113 mg/dL 70-105 (test lhti=466) CALCIUM (BEAKER) (test 7.9 mg/dL 8.4-10.2 qlys=902) EGFR (BEAKER) (test 18 mL/min/1.73 sq m ESTIMATED GFR IS NOT sjqn=0089) ACCURATE CREATININE CLEARANCE IN PREDICTING GLOMERULAR FILTRATION RATE. ESTIMATED GFR IS NOT APPLICABLE FOR DIALYSIS PATIENTS. [id number] 03:46:00 Test Item Value Reference Range Comments MAGNESIUM (BEAKER) (test 2.4 mg/dL 1.6-2.6 Specimen slightly hemolyzed mugn=732) [id number] 03:46:00 Test Item Value Reference Range Comments PHOSPHORUS (BEAKER) (test 6.5 mg/dL 2.3-4.7 Specimen slightly hemolyzed jyai=943) CBC W/PLT COUNT & AUTO [id number] 03:26:00 Test Item Value Reference Range Comments WHITE BLOOD CELL COUNT (BEAKER) (test brog=782) 10.8 K/ L 3.5-10.5 RED BLOOD CELL COUNT (BEAKER) (test lnos=738) 3.16 M/ L 3.93-5.22 HEMOGLOBIN (BEAKER) (test vdtv=364) 8.2 GM/DL 11.2-15.7 HEMATOCRIT (BEAKER) (test gljq=169) 26.6 % 34.1-44.9 MEAN CORPUSCULAR VOLUME (BEAKER) (test ulus=968) 84.2 fL 79.4-94.8 MEAN CORPUSCULAR HEMOGLOBIN (BEAKER) (test 25.9 pg 25.6-32.2 moyc=294) MEAN CORPUSCULAR HEMOGLOBIN CONC (BEAKER) (test 30.8 GM/DL 32.2-35.5 amil=594) RED CELL DISTRIBUTION WIDTH (BEAKER) (test 15.0 % 11.7-14.4 fpbq=488) PLATELET COUNT (BEAKER) (test cled=745) 195 K/CU MM 150-450 MEAN PLATELET VOLUME (BEAKER) (test gidb=111) 10.6 fL 9.4-12.3 NUCLEATED RED BLOOD CELLS (BEAKER) (test 0 /100 WBC 0-0 gevz=557) NEUTROPHILS RELATIVE PERCENT (BEAKER) (test 73 % lsdn=548) LYMPHOCYTES RELATIVE PERCENT (BEAKER) (test 18 % tgfa=774) MONOCYTES RELATIVE PERCENT (BEAKER) (test 6 % ewnv=014) EOSINOPHILS RELATIVE PERCENT (BEAKER) (test 2 % swyp=955) BASOPHILS RELATIVE PERCENT (BEAKER) (test 1 % gblv=453) NEUTROPHILS ABSOLUTE COUNT (BEAKER) (test 7.95 K/ L 1.56-6.13 ebci=193) LYMPHOCYTES ABSOLUTE COUNT (BEAKER) (test 1.93 K/ L 1.18-3.74 xdoe=589) MONOCYTES ABSOLUTE COUNT (BEAKER) (test 0.66 K/ L 0.24-0.36 mcdz=065) EOSINOPHILS ABSOLUTE COUNT (BEAKER) (test 0.18 K/ L 0.04-0.36 vxwc=842) BASOPHILS ABSOLUTE COUNT (BEAKER) (test 0.07 K/ L 0.01-0.08 ujdc=365) IMMATURE GRANULOCYTES-RELATIVE PERCENT (BEAKER) 0 % 0-1 (test nhzl=1873) BLOOD GAS, [id number] 03:18:00 Test Item Value Reference Range Comments PH ARTERIAL (BEAKER) (test zckr=309) 7.40 7.35-7.45 PCO2 ARTERIAL (BEAKER) (test fqyz=782) 40 mmHg 35-45 PO2 ARTERIAL (BEAKER) (test owzv=377) 63 mmHg 80-90 O2 SATURATION ARTERIAL (BEAKER) (test ppot=915) 92.3 % 96.0-97.0 HCO3 ARTERIAL (BEAKER) (test dbyn=198) 24 mmol/L 21-29 BASE EXCESS ARTERIAL (BEAKER) (test jecr=762) -0.6 mmol/L -2.0-3.0 PATIENT TEMPERATURE (BEAKER) (test ezzk=8401) 36.8 C FIO2 (BEAKER) (test ywto=8507) 36.0 % CALCIUM, [id number] 16:32:00 Test Item Value Reference Range Comments CALCIUM IONIZED (BEAKER) (test gnvc=934) 1.11 mmol/L 1.12-1.27 PH, BLOOD (BEAKER) (test lrvi=6052) 7.39 BASIC METABOLIC [id number] 15:43:00 Test Item Value Reference Range Comments SODIUM (BEAKER) (test 139 meq/L 136-145 lmrc=657) POTASSIUM (BEAKER) (test 4.6 meq/L 3.5-5.1 oguz=168) CHLORIDE (BEAKER) (test 106 meq/L 98-107 xshk=585) CO2 (BEAKER) (test 21 meq/L 22-29 dogv=254) BLOOD UREA NITROGEN 54 mg/dL 7-21 (BEAKER) (test iyua=287) CREATININE (BEAKER) (test 3.08 mg/dL 0.57-1.25 wsto=178) GLUCOSE RANDOM (BEAKER) 116 mg/dL 70-105 (test ljis=071) CALCIUM (BEAKER) (test 8.1 mg/dL 8.4-10.2 pvjx=014) EGFR (BEAKER) (test 15 mL/min/1.73 sq m ESTIMATED GFR IS NOT hncf=0932) ACCURATE CREATININE CLEARANCE IN PREDICTING GLOMERULAR FILTRATION RATE. ESTIMATED GFR IS NOT APPLICABLE FOR DIALYSIS PATIENTS. POCT-GLUCOSE [id number] 12:53:00 Test Item Value Reference Range Comments POC-GLUCOSE METER (BEAKER) 118 mg/dL 70-110 TESTED AT [address] (test derc=8873) [facility] [address] BLOOD GAS, [id number] 10:42:00 Test Item Value Reference Range Comments PH ARTERIAL (BEAKER) (test stfl=915) 7.40 7.35-7.45 PCO2 ARTERIAL (BEAKER) (test bnqx=796) 38 mmHg 35-45 PO2 ARTERIAL (BEAKER) (test ltww=108) 78 mmHg 80-90 O2 SATURATION ARTERIAL (BEAKER) (test hicm=779) 95.6 % 96.0-97.0 HCO3 ARTERIAL (BEAKER) (test gtug=418) 23 mmol/L 21-29 BASE EXCESS ARTERIAL (BEAKER) (test ktbq=217) -1.4 mmol/L -2.0-3.0 PATIENT TEMPERATURE (BEAKER) (test xmsg=5586) 36.9 C FIO2 (BEAKER) (test zahj=1435) 40.0 % POCT-GLUCOSE [id number] 06:46:00 Test Item Value Reference Range Comments POC-GLUCOSE METER (BEAKER) 106 mg/dL 70-110 TESTED AT [address] (test cuon=8251) [facility] [address] RAD, CHEST, 1 VIEW, NON [id number] 05:05:00while patient is intubated or has chest [...] MDRepemily Verified Date/Time: 05/22/2017 05:05:00 Reading Location: [facility] C013Y CT Body ReadingRoom BASIC METABOLIC [id number] 05:00:00 Test Item Value Reference Range Comments SODIUM (BEAKER) (test 138 meq/L 136-145 qhao=400) POTASSIUM (BEAKER) (test 4.5 meq/L 3.5-5.1 luul=631) CHLORIDE (BEAKER) (test 107 meq/L 98-107 octg=767) CO2 (BEAKER) (test 21 meq/L 22-29 cqrp=247) BLOOD UREA NITROGEN 53 mg/dL 7-21 (BEAKER) (test uvee=354) CREATININE (BEAKER) (test 3.23 mg/dL 0.57-1.25 ingk=725) GLUCOSE RANDOM (BEAKER) 126 mg/dL 70-105 (test ditr=082) CALCIUM (BEAKER) (test 8.1 mg/dL 8.4-10.2 dxok=925) EGFR (BEAKER) (test 15 mL/min/1.73 sq m ESTIMATED GFR IS NOT blku=9303) ACCURATE CREATININE CLEARANCE IN PREDICTING GLOMERULAR FILTRATION RATE. ESTIMATED GFR IS NOT APPLICABLE FOR DIALYSIS PATIENTS. [id number] 04:41:00 Test Item Value Reference Range Comments PHOSPHORUS (BEAKER) (test sfsw=433) 6.4 mg/dL 2.3-4.7 [id number] 04:41:00 Test Item Value Reference Range Comments MAGNESIUM (BEAKER) (test bfwb=582) 2.6 mg/dL 1.6-2.6 CALCIUM, [id number] 04:26:00 Test Item Value Reference Range Comments CALCIUM IONIZED (BEAKER) (test qplb=645) 1.09 mmol/L 1.12-1.27 PH, BLOOD (BEAKER) (test dxaf=1185) 7.40 OXYGEN SATURATION, [id number] 04:25:00 Test Item Value Reference Range Comments O2 SATURATION (MEASURED) (BEAKER) (test ywvr=7818) 77.0 % CBC W/PLT COUNT & AUTO [id number] 04:17:00 Test Item Value Reference Range Comments WHITE BLOOD CELL COUNT (BEAKER) (test rmft=434) 8.9 K/ L 3.5-10.5 RED BLOOD CELL COUNT (BEAKER) (test yzmj=082) 3.14 M/ L 3.93-5.22 HEMOGLOBIN (BEAKER) (test ihks=715) 8.1 GM/DL 11.2-15.7 HEMATOCRIT (BEAKER) (test zxyf=822) 26.1 % 34.1-44.9 MEAN CORPUSCULAR VOLUME (BEAKER) (test mikl=787) 83.1 fL 79.4-94.8 MEAN CORPUSCULAR HEMOGLOBIN (BEAKER) (test 25.8 pg 25.6-32.2 pgbu=636) MEAN CORPUSCULAR HEMOGLOBIN CONC (BEAKER) (test 31.0 GM/DL 32.2-35.5 fnpt=273) RED CELL DISTRIBUTION WIDTH (BEAKER) (test 15.3 % 11.7-14.4 jlrs=241) PLATELET COUNT (BEAKER) (test mfzf=000) 156 K/CU MM 150-450 MEAN PLATELET VOLUME (BEAKER) (test afhl=953) 10.2 fL 9.4-12.3 NUCLEATED RED BLOOD CELLS (BEAKER) (test 0 /100 WBC 0-0 nezu=253) NEUTROPHILS RELATIVE PERCENT (BEAKER) (test 68 % ylft=942) LYMPHOCYTES RELATIVE PERCENT (BEAKER) (test 22 % udxu=214) MONOCYTES RELATIVE PERCENT (BEAKER) (test 8 % lgbf=782) EOSINOPHILS RELATIVE PERCENT (BEAKER) (test 1 % aogt=973) BASOPHILS RELATIVE PERCENT (BEAKER) (test 1 % fjov=163) NEUTROPHILS ABSOLUTE COUNT (BEAKER) (test 6.05 K/ L 1.56-6.13 bfxi=336) LYMPHOCYTES ABSOLUTE COUNT (BEAKER) (test 1.91 K/ L 1.18-3.74 jgai=714) MONOCYTES ABSOLUTE COUNT (BEAKER) (test 0.74 K/ L 0.24-0.36 izek=070) EOSINOPHILS ABSOLUTE COUNT (BEAKER) (test 0.08 K/ L 0.04-0.36 plga=451) BASOPHILS ABSOLUTE COUNT (BEAKER) (test 0.05 K/ L 0.01-0.08 qrqz=471) IMMATURE GRANULOCYTES-RELATIVE PERCENT (BEAKER) 0 % 0-1 (test txqt=2626) LACTIC ACID, ARTERIAL, WHOLE [id number] 00:07:00 Test Item Value Reference Range Comments LACTATE BLOOD ARTERIAL (2) 1.0 mmol/L 0.5-2.2 Specimen slightly hemolyzed (BEAKER) (test zzcx=3510) Effective 08/02/2015: Units/Reference Range ChangeNew: 0.5-2.2 mmol/L Previous: 5 -20 mg/dLPOCT-GLUCOSE [id number] 23:47:00 Test Item Value Reference Range Comments POC-GLUCOSE METER (BEAKER) 180 mg/dL 70-110 TESTED AT [facility] [address] [facility] (test kzki=2896) [facility] [address] BLOOD GAS, [id number] 23:46:00 Test Item Value Reference Range Comments PH ARTERIAL (BEAKER) (test dxvk=564) 7.40 7.35-7.45 PCO2 ARTERIAL (BEAKER) (test kroh=855) 37 mmHg 35-45 PO2 ARTERIAL (BEAKER) (test umqv=428) 136 mmHg 80-90 O2 SATURATION ARTERIAL (BEAKER) (test ndlc=065) 98.7 % 96.0-97.0 HCO3 ARTERIAL (BEAKER) (test pfrh=934) 22 mmol/L 21-29 BASE EXCESS ARTERIAL (BEAKER) (test bhtg=041) -2.4 mmol/L -2.0-3.0 PATIENT TEMPERATURE (BEAKER) (test ovko=5675) 37.0 C FIO2 (BEAKER) (test eili=8629) 100.0 % SODIUM NA-STAT [id number] 23:46:00 Test Item Value Reference Range Comments SODIUM (BEAKER) (test skzf=174) 134 meq/L 135-148 GLUCOSE-STAT [id number] 23:46:00 Test Item Value Reference Range Comments GLUCOSE RANDOM (BEAKER) (test ldhv=733) 119 mg/dL 70-110 HGB/HCT (H&H) - STAT [id number] 23:46:00 Test Item Value Reference Range Comments HEMOGLOBIN (BEAKER) (test djhf=951) 8.8 g/dL 12.0-15.0 HEMATOCRIT (BEAKER) (test icvk=666) 26.0 % 36.0-45.0 OXYGEN SATURATION, [id number] 23:45:00 Test Item Value Reference Range Comments O2 SATURATION (MEASURED) (BEAKER) (test bmog=0831) 68.1 % POTASSIUM-STAT [id number] 23:45:00 Test Item Value Reference Range Comments POTASSIUM (BEAKER) (test rbly=623) 5.5 meq/L 3.6-5.5 POCT-GLUCOSE [id number] 20:58:00 Test Item Value Reference Range Comments POC-GLUCOSE METER (BEAKER) 133 mg/dL 70-110 TESTED AT [address] (test urff=1394) [facility] [address] POCT-GLUCOSE [id number] 17:58:00 Test Item Value Reference Range Comments POC-GLUCOSE METER (BEAKER) 210 mg/dL 70-110 TESTED AT [address] (test doxv=6671) [facility] [address] POCT-GLUCOSE [id number] 17:58:00 Test Item Value Reference Range Comments POC-GLUCOSE METER (BEAKER) 211 mg/dL 70-110 TESTED AT [address] (test qtvc=8705) [facility] [address] POCT-GLUCOSE [id number] 17:58:00 Test Item Value Reference Range Comments POC-GLUCOSE METER (BEAKER) 232 mg/dL 70-110 TESTED AT [address] (test jjtm=0444) [facility] [address] POCT-GLUCOSE [id number] 17:58:00 Test Item Value Reference Range Comments POC-GLUCOSE METER (BEAKER) 262 mg/dL 70-110 TESTED AT [address] (test snkz=2261) [place] [id number] BLOOD GAS, [id number] 17:01:00 Test Item Value Reference Range Comments PH ARTERIAL (BEAKER) (test cxst=495) 7.38 7.35-7.45 PCO2 ARTERIAL (BEAKER) (test nghs=450) 39 mmHg 35-45 PO2 ARTERIAL (BEAKER) (test rzqf=450) 75 mmHg 80-90 O2 SATURATION ARTERIAL (BEAKER) (test pnbz=216) 94.9 % 96.0-97.0 HCO3 ARTERIAL (BEAKER) (test fshm=208) 23 mmol/L 21-29 BASE EXCESS ARTERIAL (BEAKER) (test gbgr=201) -2.5 mmol/L -2.0-3.0 PATIENT TEMPERATURE (BEAKER) (test xixb=3438) 36.8 C FIO2 (BEAKER) (test ukgg=6720) 60.0 % POTASSIUM-STAT [id number] 17:00:00 Test Item Value Reference Range Comments POTASSIUM (BEAKER) (test kygl=415) 4.8 meq/L 3.6-5.5 POCT-GLUCOSE [id number] 15:52:00 Test Item Value Reference Range Comments POC-GLUCOSE METER (BEAKER) 267 mg/dL 70-110 TESTED AT [address] (test tsxg=2862) [place] [address] POCT-GLUCOSE [id number] 14:42:00 Test Item Value Reference Range Comments POC-GLUCOSE METER (BEAKER) 231 mg/dL 70-110 TESTED AT [address] (test eibt=9465) [place] [address] BODY FLUID CELL COUNT WITH [id number] 14:41:00 Test Item Value Reference Range Comments APPEARANCE FLUID (BEAKER) (test qxpf=501) Turbid Clear COLOR FLUID (BEAKER) (test aqsb=585) Colorless Colorless, Straw RBC FLUID (BEAKER) (test busr=499) 2000 /cu mm <=1 ADJUSTED WBC FLUID (BEAKER) (test rhlg=2663) 1489 /cu mm <=5 LINING CELLS (BEAKER) (test ijvp=2291) 119 /cu mm <=1 NEUTROPHILS FLUID (BEAKER) (test scks=5988) 40 % LYMPHS FLUID (BEAKER) (test ngtj=467) 34 % MONO/MACROPHAGE FLUID (BEAKER) (test hafd=271) 26 % EOSINOPHILS FLUID (BEAKER) (test vrqa=424) 0 % BASO FLUID (BEAKER) (test dfzr=620) 0 % CONTAINER BODY FLUID (BEAKER) (test tijq=1672) EDTA Tube BASIC METABOLIC [id number] 14:11:00 Test Item Value Reference Range Comments SODIUM (BEAKER) (test 137 meq/L 136-145 aefj=903) POTASSIUM (BEAKER) (test 5.6 meq/L 3.5-5.1 izgh=123) CHLORIDE (BEAKER) (test 106 meq/L 98-107 xvty=315) CO2 (BEAKER) (test 20 meq/L 22-29 ctgz=856) BLOOD UREA NITROGEN 48 mg/dL 7-21 (BEAKER) (test vawb=443) CREATININE (BEAKER) (test 2.50 mg/dL 0.57-1.25 nbul=283) GLUCOSE RANDOM (BEAKER) 221 mg/dL 70-105 (test exly=145) CALCIUM (BEAKER) (test 8.1 mg/dL 8.4-10.2 clvq=774) EGFR (BEAKER) (test 20 mL/min/1.73 sq m ESTIMATED GFR IS NOT regx=4196) ACCURATE CREATININE CLEARANCE IN PREDICTING GLOMERULAR FILTRATION RATE. ESTIMATED GFR IS NOT APPLICABLE FOR DIALYSIS PATIENTS. [id number] 14:08:00 Test Item Value Reference Range Comments PHOSPHORUS (BEAKER) (test nfca=748) 7.2 mg/dL 2.3-4.7 [id number] 14:08:00 Test Item Value Reference Range Comments MAGNESIUM (BEAKER) (test pkmc=190) 2.6 mg/dL 1.6-2.6 POCT-GLUCOSE [id number] 12:49:00 Test Item Value Reference Range Comments POC-GLUCOSE METER (BEAKER) 224 mg/dL 70-110 TESTED AT [address] (test qfrj=7096) [facility] [address] POCT-GLUCOSE [id number] 12:49:00 Test Item Value Reference Range Comments POC-GLUCOSE METER (BEAKER) 248 mg/dL 70-110 TESTED AT [address] (test dvjs=9331) [facility] [address] RAD, CHEST, 1 VIEW, NON [id number] 12:32:00Reason for exam:->re- intubationShould this be performed [...] MDReport Verified Date/Time: 05/21/2017 12:32:08 Reading Location: [facility] Radiology Reading Room POTASSIUM-STAT [id number] 12:28:00 Test Item Value Reference Range Comments POTASSIUM (BEAKER) (test twbg=575) 5.5 meq/L 3.6-5.5 BLOOD GAS, [id number] 12:28:00 Test Item Value Reference Range Comments PH ARTERIAL (BEAKER) (test lcnq=918) 7.32 7.35-7.45 PCO2 ARTERIAL (BEAKER) (test chdn=994) 45 mmHg 35-45 PO2 ARTERIAL (BEAKER) (test fisd=231) 304 mmHg 80-90 O2 SATURATION ARTERIAL (BEAKER) (test gzpm=008) 99.7 % 96.0-97.0 HCO3 ARTERIAL (BEAKER) (test azzt=614) 22 mmol/L 21-29 BASE EXCESS ARTERIAL (BEAKER) (test zpvb=678) -3.7 mmol/L -2.0-3.0 PATIENT TEMPERATURE (BEAKER) (test dsvr=0168) 37.0 C FIO2 (BEAKER) (test mqyy=3040) 100.0 % BLOOD GAS, [id number] 10:53:00 Test Item Value Reference Range Comments PH ARTERIAL (BEAKER) (test wkcq=152) 7.36 7.35-7.45 PCO2 ARTERIAL (BEAKER) (test zbjb=035) 35 mmHg 35-45 PO2 ARTERIAL (BEAKER) (test mcyu=653) 40 mmHg 80-90 O2 SATURATION ARTERIAL (BEAKER) (test rnwm=155) 82.3 % 96.0-97.0 HCO3 ARTERIAL (BEAKER) (test gqcr=476) 20 mmol/L 21-29 BASE EXCESS ARTERIAL (BEAKER) (test rxuc=135) -5.9 mmol/L -2.0-3.0 PATIENT TEMPERATURE (BEAKER) (test gmqv=9211) 33.7 C FIO2 (BEAKER) (test fpbo=0102) 36.0 % RAD, CHEST, 1 VIEW, NON [id number] 08:46:00while patient is intubated or has chest [...] Verified Date/ Time: 05/21/2017 08:46:27 Reading Location: [facility] Radiology Reading Room BLOOD GAS, [id number] 05:41:00 Test Item Value Reference Range Comments PH ARTERIAL (BEAKER) (test xkvm=445) 7.33 7.35-7.45 PCO2 ARTERIAL (BEAKER) (test ksnh=877) 40 mm Hg 35-45 PO2 ARTERIAL (BEAKER) (test hovu=114) 106 mm Hg 80-90 O2 SATURATION ARTERIAL (BEAKER) (test hmcx=397) 97.5 % 96.0-97.0 HCO3 ARTERIAL (BEAKER) (test trqn=587) 21 mmol/L 21-29 BASE EXCESS ARTERIAL (BEAKER) (test tvnx=026) -5.1 mmol/L -2.0-3.0 PATIENT TEMPERATURE (BEAKER) (test ofga=7416) 37.0 FIO2 (BEAKER) (test gujp=1325) 40 CALCIUM, [id number] 04:35:00 Test Item Value Reference Range Comments CALCIUM IONIZED (BEAKER) (test ipxf=333) 1.13 mmol/L 1.12-1.27 PH, BLOOD (BEAKER) (test pksv=1128) 7.32 BLOOD GAS, [id number] 04:28:00 Test Item Value Reference Range Comments PH ARTERIAL (BEAKER) (test yxyd=615) 7.32 7.35-7.45 PCO2 ARTERIAL (BEAKER) (test qacb=220) 40 mmHg 35-45 PO2 ARTERIAL (BEAKER) (test lubz=606) 100 mmHg 80-90 O2 SATURATION ARTERIAL (BEAKER) (test kgha=060) 97.2 % 96.0-97.0 HCO3 ARTERIAL (BEAKER) (test eogc=850) 20 mmol/L 21-29 BASE EXCESS ARTERIAL (BEAKER) (test oxgm=761) -5.7 mmol/L -2.0-3.0 PATIENT TEMPERATURE (BEAKER) (test shfp=6856) 36.9 C FIO2 (BEAKER) (test fiup=0219) 40.0 % [id number] 04:20:00 Test Item Value Reference Range Comments PHOSPHORUS (BEAKER) (test xthi=544) 6.2 mg/dL 2.3-4.7 [id number] 04:20:00 Test Item Value Reference Range Comments MAGNESIUM (BEAKER) (test szkn=736) 2.4 mg/dL 1.6-2.6 HEPATIC FUNCTION [id number] 04:20:00 Test Item Value Reference Range Comments TOTAL PROTEIN (BEAKER) (test uyoq=445) 4.8 gm/dL 6.0-8.3 ALBUMIN (BEAKER) (test raso=0234) 2.5 g/dL 3.5-5.0 BILIRUBIN TOTAL (BEAKER) (test yvim=291) 0.7 mg/dL 0.2-1.2 BILIRUBIN DIRECT (BEAKER) (test hppe=678) 0.3 mg/dL 0.1-0.5 ALKALINE PHOSPHATASE (BEAKER) (test pbdh=279) 96 U/L 40-150 AST (SGOT) (BEAKER) (test qjxl=845) 31 U/L 5-34 ALT (SGPT) (BEAKER) (test nofz=683) 11 U/L 6-55 BASIC METABOLIC [id number] 04:20:00 Test Item Value Reference Range Comments SODIUM (BEAKER) (test 134 meq/L 136-145 kjqt=380) POTASSIUM (BEAKER) (test 5.0 meq/L 3.5-5.1 pmmo=299) CHLORIDE (BEAKER) (test 105 meq/L 98-107 bfaq=505) CO2 (BEAKER) (test 18 meq/L 22-29 emzm=545) BLOOD UREA NITROGEN 45 mg/dL 7-21 (BEAKER) (test dhdp=070) CREATININE (BEAKER) (test 1.91 mg/dL 0.57-1.25 ozmj=911) GLUCOSE RANDOM (BEAKER) 247 mg/dL 70-105 (test enzq=415) CALCIUM (BEAKER) (test 7.9 mg/dL 8.4-10.2 krjc=537) EGFR (BEAKER) (test 27 mL/min/1.73 sq m ESTIMATED GFR IS NOT ohkz=4636) ACCURATE CREATININE CLEARANCE IN PREDICTING GLOMERULAR FILTRATION RATE. ESTIMATED GFR IS NOT APPLICABLE FOR DIALYSIS PATIENTS. OXYGEN SATURATION, [id number] 04:18:00 Test Item Value Reference Range Comments O2 SATURATION (MEASURED) (BEAKER) (test ebvt=5162) 68.0 % LACTIC ACID, ARTERIAL, WHOLE [id number] 04:12:00 Test Item Value Reference Range Comments LACTATE BLOOD ARTERIAL (2) (BEAKER) (test 1.0 mmol/L 0.5-2.2 gapa=6535) Effective 08/02/2015: Units/Reference Range ChangeNew: 0.5-2.2 mmol/L Previous: 5 -20 mg/dLCBC W/PLT COUNT & AUTO [id number] 04:00:00 Test Item Value Reference Range Comments WHITE BLOOD CELL COUNT (BEAKER) (test taoo=501) 12.0 K/ L 3.5-10.5 RED BLOOD CELL COUNT (BEAKER) (test ybes=012) 3.32 M/ L 3.93-5.22 HEMOGLOBIN (BEAKER) (test kqrq=862) 8.8 GM/DL 11.2-15.7 HEMATOCRIT (BEAKER) (test cdzx=546) 28.3 % 34.1-44.9 MEAN CORPUSCULAR VOLUME (BEAKER) (test vrqz=717) 85.2 fL 79.4-94.8 MEAN CORPUSCULAR HEMOGLOBIN (BEAKER) (test 26.5 pg 25.6-32.2 wpbj=928) MEAN CORPUSCULAR HEMOGLOBIN CONC (BEAKER) (test 31.1 GM/DL 32.2-35.5 ddpc=263) RED CELL DISTRIBUTION WIDTH (BEAKER) (test 15.0 % 11.7-14.4 agwg=004) PLATELET COUNT (BEAKER) (test hvun=997) 157 K/CU MM 150-450 MEAN PLATELET VOLUME (BEAKER) (test qvpw=381) 10.7 fL 9.4-12.3 NUCLEATED RED BLOOD CELLS (BEAKER) (test 0 /100 WBC 0-0 buaa=491) NEUTROPHILS RELATIVE PERCENT (BEAKER) (test 91 % lnhs=840) LYMPHOCYTES RELATIVE PERCENT (BEAKER) (test 4 % tfms=219) MONOCYTES RELATIVE PERCENT (BEAKER) (test 4 % yfls=345) EOSINOPHILS RELATIVE PERCENT (BEAKER) (test 0 % sqhr=644) BASOPHILS RELATIVE PERCENT (BEAKER) (test 0 % raec=299) NEUTROPHILS ABSOLUTE COUNT (BEAKER) (test 10.95 K/ L 1.56-6.13 kmvu=625) LYMPHOCYTES ABSOLUTE COUNT (BEAKER) (test 0.52 K/ L 1.18-3.74 uroj=151) MONOCYTES ABSOLUTE COUNT (BEAKER) (test 0.42 K/ L 0.24-0.36 qmht=948) EOSINOPHILS ABSOLUTE COUNT (BEAKER) (test 0.01 K/ L 0.04-0.36 sbcf=390) BASOPHILS ABSOLUTE COUNT (BEAKER) (test 0.05 K/ L 0.01-0.08 stwk=924) IMMATURE GRANULOCYTES-RELATIVE PERCENT (BEAKER) 0 % 0-1 (test eksv=3624) BLOOD GAS, [id number] 00:06:00 Test Item Value Reference Range Comments PH ARTERIAL (BEAKER) (test rpkr=547) 7.26 7.35-7.45 PCO2 ARTERIAL (BEAKER) (test xbyj=436) 52 mmHg 35-45 PO2 ARTERIAL (BEAKER) (test gaby=844) 88 mmHg 80-90 O2 SATURATION ARTERIAL (BEAKER) (test daas=294) 95.7 % 96.0-97.0 HCO3 ARTERIAL (BEAKER) (test qhvr=947) 23 mmol/L 21-29 BASE EXCESS ARTERIAL (BEAKER) (test dqdf=858) -4.0 mmol/L -2.0-3.0 PATIENT TEMPERATURE (BEAKER) (test elvv=6143) 36.4 C FIO2 (BEAKER) (test etre=7131) 40.0 % [id number] 18:55:00 Test Item Value Reference Range Comments PHOSPHORUS (BEAKER) (test yevi=124) 4.8 mg/dL 2.3-4.7 [id number] 18:55:00 Test Item Value Reference Range Comments MAGNESIUM (BEAKER) (test qwsu=762) 2.3 mg/dL 1.6-2.6 BASIC METABOLIC [id number] 18:55:00 Test Item Value Reference Range Comments SODIUM (BEAKER) (test 136 meq/L 136-145 geau=433) POTASSIUM (BEAKER) (test 4.5 meq/L 3.5-5.1 msls=692) CHLORIDE (BEAKER) (test 108 meq/L 98-107 eajr=397) CO2 (BEAKER) (test 21 meq/L 22-29 yirg=470) BLOOD UREA NITROGEN 39 mg/dL 7-21 (BEAKER) (test bwuu=185) CREATININE (BEAKER) (test 1.58 mg/dL 0.57-1.25 csgm=887) GLUCOSE RANDOM (BEAKER) 172 mg/dL 70-105 (test imao=784) CALCIUM (BEAKER) (test 7.9 mg/dL 8.4-10.2 ydwx=754) EGFR (BEAKER) (test 33 mL/min/1.73 sq m ESTIMATED GFR IS NOT caps=4869) ACCURATE CREATININE CLEARANCE IN PREDICTING GLOMERULAR FILTRATION RATE. ESTIMATED GFR IS NOT APPLICABLE FOR DIALYSIS PATIENTS. LACTIC ACID, ARTERIAL, WHOLE [id number] 18:53:00 Test Item Value Reference Range Comments LACTATE BLOOD ARTERIAL (2) 0.9 mmol/L 0.5-2.2 Specimen slightly hemolyzed (BEAKER) (test dteh=2415) Effective 08/02/2015: Units/Reference Range ChangeNew: 0.5-2.2 mmol/L Previous: 5 -20 mg/dLRAD, CHEST, 1 VIEW, NON [id number] 18:44:00Reason for exam:-> postop cardiacShould this be [...] MDReport Verified Date/Time: 2017 18:44:30 Reading Location: [address] Consult Reading Room Electronically signed by: LISA LI M.D. on05/20/2017 06:44 PMCBC W/PLT COUNT & AUTO [id number] 18:38:00 Test Item Value Reference Range Comments WHITE BLOOD CELL COUNT (BEAKER) (test sisr=623) 8.7 K/ L 3.5-10.5 RED BLOOD CELL COUNT (BEAKER) (test enty=774) 3.33 M/ L 3.93-5.22 HEMOGLOBIN (BEAKER) (test hedn=959) 8.7 GM/DL 11.2-15.7 HEMATOCRIT (BEAKER) (test awhx=512) 27.9 % 34.1-44.9 MEAN CORPUSCULAR VOLUME (BEAKER) (test igdj=846) 83.8 fL 79.4-94.8 MEAN CORPUSCULAR HEMOGLOBIN (BEAKER) (test 26.1 pg 25.6-32.2 mgyd=299) MEAN CORPUSCULAR HEMOGLOBIN CONC (BEAKER) (test 31.2 GM/DL 32.2-35.5 xrdi=316) RED CELL DISTRIBUTION WIDTH (BEAKER) (test 14.9 % 11.7-14.4 ahft=291) PLATELET COUNT (BEAKER) (test muyq=936) 137 K/CU MM 150-450 MEAN PLATELET VOLUME (BEAKER) (test hmxn=192) 10.2 fL 9.4-12.3 NUCLEATED RED BLOOD CELLS (BEAKER) (test 0 /100 WBC 0-0 fsed=868) NEUTROPHILS RELATIVE PERCENT (BEAKER) (test 79 % pelg=771) LYMPHOCYTES RELATIVE PERCENT (BEAKER) (test 12 % ffob=893) MONOCYTES RELATIVE PERCENT (BEAKER) (test 7 % ujne=092) EOSINOPHILS RELATIVE PERCENT (BEAKER) (test 1 % rcij=837) BASOPHILS RELATIVE PERCENT (BEAKER) (test 1 % pnlm=106) NEUTROPHILS ABSOLUTE COUNT (BEAKER) (test 6.83 K/ L 1.56-6.13 fpmg=642) LYMPHOCYTES ABSOLUTE COUNT (BEAKER) (test 1.06 K/ L 1.18-3.74 vcnq=885) MONOCYTES ABSOLUTE COUNT (BEAKER) (test 0.56 K/ L 0.24-0.36 wfud=565) EOSINOPHILS ABSOLUTE COUNT (BEAKER) (test 0.12 K/ L 0.04-0.36 czyh=612) BASOPHILS ABSOLUTE COUNT (BEAKER) (test 0.04 K/ L 0.01-0.08 rhwe=912) IMMATURE GRANULOCYTES-RELATIVE PERCENT (BEAKER) 1 % 0-1 (test ouzx=4498) OXYGEN SATURATION, [id number] 18:36:00 Test Item Value Reference Range Comments O2 SATURATION (MEASURED) (BEAKER) (test yuxn=5736) 72.5 % From distal port of IJ central venous catheterSODIUM NA-STAT [id number] 18:30 :00 Test Item Value Reference Range Comments SODIUM (BEAKER) (test hewv=893) 132 meq/L 135-148 HGB/HCT (H&H) - STAT [id number] 18:30:00 Test Item Value Reference Range Comments HEMOGLOBIN (BEAKER) (test tfwl=261) 9.4 g/dL 12.0-15.0 HEMATOCRIT (BEAKER) (test ntci=967) 28.0 % 36.0-45.0 GLUCOSE-STAT [id number] 18:30:00 Test Item Value Reference Range Comments GLUCOSE RANDOM (BEAKER) (test ysyj=391) 159 mg/dL 70-110 BLOOD GAS, [id number] 18:30:00 Test Item Value Reference Range Comments PH ARTERIAL (BEAKER) (test tyfx=676) 7.34 7.35-7.45 PCO2 ARTERIAL (BEAKER) (test xepb=148) 43 mmHg 35-45 PO2 ARTERIAL (BEAKER) (test lzqb=967) 76 mmHg 80-90 O2 SATURATION ARTERIAL (BEAKER) (test tvfq=973) 94.9 % 96.0-97.0 HCO3 ARTERIAL (BEAKER) (test inhp=142) 23 mmol/L 21-29 BASE EXCESS ARTERIAL (BEAKER) (test jwjf=303) -2.6 mmol/L -2.0-3.0 PATIENT TEMPERATURE (BEAKER) (test hmjk=8261) 36.4 C FIO2 (BEAKER) (test ypkx=6474) 60.0 % CALCIUM, [id number] 18:30:00 Test Item Value Reference Range Comments CALCIUM IONIZED (BEAKER) (test yjvq=615) 0.94 mmol/L 1.12-1.27 PH, BLOOD (BEAKER) (test weui=8382) 7.34 POTASSIUM-STAT [id number] 18:28:00 Test Item Value Reference Range Comments POTASSIUM (BEAKER) (test zloo=882) 4.4 meq/L 3.6-5.5 THROMBOELASTOGRAPH ([id number] 18:11:00 Test Item Value Reference Range Comments TEG ACTIVATED CLOTTING TIME (BEAKER) (test 6.7 minutes 4.0-7.0 ftvw=9644) TEG FIBRINOGEN ACTIVITY (BEAKER) (test 66.6 degrees 61.0-73.0 kbkr=3421) TEG PLT. AGGREGATION (BEAKER) (test mkwf=4445) 62.4 MM 55.0-65.0 TEG FIBRINOLYSIS (BEAKER) (test ndps=5239) 0.0 % 0.0-5.0 TGH ACTIVATED CLOTTING TIME (BEAKER) (test 6.7 minutes 4.0-7.0 qtux=4419) [facility]GH FIBRINOGEN ACTIVITY ([facility]) (test 69.0 degrees 61.0-73.0 ifns=6859) TGH PLT. AGGREGATION ([facility]) (test amgx=1145) 62.8 MM 55.0-65.0 TGH FIBRINOLYSIS ([facility]) (test fcda=4452) 0.0 % 0.0-5.0 [id number] 17:53:00 Test Item Value Reference Range Comments ACTIVATED CLOTTING TIME 103 sec TESTED AT [address] [facility] (test ozao=146) [place] [address] [id number] 17:53:00 Test Item Value Reference Range Comments ACTIVATED CLOTTING TIME 466 sec TESTED AT [address] ([facility]) (test jyyy=313) [place] [address] [id number] 17:53:00 Test Item Value Reference Range Comments ACTIVATED CLOTTING TIME 543 sec TESTED AT [address] ([facility]) (test auyt=880) [place] [address] [id number] 17:53:00 Test Item Value Reference Range Comments ACTIVATED CLOTTING TIME 549 sec TESTED AT [address] ([facility]) (test ddgl=659) [place] [address] [id number] 17:53:00 Test Item Value Reference Range Comments ACTIVATED CLOTTING TIME 632 sec TESTED AT [address] [facility] (test qqir=178) [place] [address] [id number] 17:53:00 Test Item Value Reference Range Comments ACTIVATED CLOTTING TIME 494 sec TESTED AT [address] [facility] (test mzdd=830) [place] [address] [id number] 17:53:00 Test Item Value Reference Range Comments ACTIVATED CLOTTING TIME 587 sec TESTED AT [address] ([facility]) (test giqb=209) [place] [address] [id number] 17:53:00 Test Item Value Reference Range Comments ACTIVATED CLOTTING TIME 626 sec TESTED AT [address] [facility] (test tjpe=707) [place] [address] [id number] 17:52:00 Test Item Value Reference Range Comments ACTIVATED CLOTTING TIME 808 sec TESTED AT [facility] [address] (BEAKER) (test wkeo=244) [place] [address] [id number] 16:54:00 Test Item Value Reference Range Comments PARTIAL THROMBOPLASTIN TIME (BEAKER) (test 40.2 seconds 22.5-36.0 jooz=474) [id number] 16:53:00 Test Item Value Reference Range Comments FIBRINOGEN LEVEL (BEAKER) (test bllr=223) 306 mg/dl 225-434 PROTHROMBIN [id number] 16:50:00 Test Item Value Reference Range Comments PROTIME (BEAKER) (test riua=323) 19.6 seconds 11.7-14.7 INR (BEAKER) (test sahk=397) 1.7 <=5.9 RECOMMENDED COUMADIN/WARFARIN INR THERAPY RANGESSTANDARD DOSE: 2.0 - 3.0 Includes: PROPHYLAXIS forvenous thrombosis, systemic embolization; TREATMENT for venous thrombosis and/or pulmonary embolus.HIGH RISK: Target INR is 2.5-3.5 for patients with mechanical heart valves.PLATELET [id number] 16:45:00 Test Item Value Reference Range Comments PLATELET COUNT (BEAKER) (test ohoq=659) 136 K/CU MM 150-450 POTASSIUM-STAT [id number] 16:15:00 Test Item Value Reference Range Comments POTASSIUM (BEAKER) (test rfcb=203) 4.9 meq/L 3.6-5.5 BLOOD GAS, [id number] 16:15:00 Test Item Value Reference Range Comments PH ARTERIAL (BEAKER) (test pbam=679) 7.39 7.35-7.45 PCO2 ARTERIAL (BEAKER) (test jtls=962) 42 mmHg 35-45 PO2 ARTERIAL (BEAKER) (test tbfi=004) 201 mmHg 80-90 O2 SATURATION ARTERIAL (BEAKER) (test cgdz=883) 99.4 % 96.0-97.0 HCO3 ARTERIAL (BEAKER) (test wdqj=215) 25 mmol/L 21-29 BASE EXCESS ARTERIAL (BEAKER) (test omby=818) -0.3 mmol/L -2.0-3.0 PATIENT TEMPERATURE (BEAKER) (test zklh=1689) 36.3 C FIO2 (BEAKER) (test ongr=5044) 100.0 % SODIUM NA-STAT [id number] 16:15:00 Test Item Value Reference Range Comments SODIUM (BEAKER) (test rntm=489) 131 meq/L 135-148 GLUCOSE-STAT [id number] 16:15:00 Test Item Value Reference Range Comments GLUCOSE RANDOM (BEAKER) (test hezh=812) 198 mg/dL 70-110 HGB/HCT (H&H) - STAT [id number] 16:15:00 Test Item Value Reference Range Comments HEMOGLOBIN (BEAKER) (test hwuk=521) 7.5 g/dL 12.0-15.0 HEMATOCRIT (BEAKER) (test fcfn=895) 22.0 % 36.0-45.0 CALCIUM, [id number] 16:14:00 Test Item Value Reference Range Comments CALCIUM IONIZED (BEAKER) (test dcfg=715) 0.91 mmol/L 1.12-1.27 PH, BLOOD (BEAKER) (test myic=6335) 7.39 BLOOD GAS, [id number] 15:39:00 Test Item Value Reference Range Comments PH ARTERIAL (BEAKER) (test adnl=389) 7.44 7.35-7.45 PCO2 ARTERIAL (BEAKER) (test aaon=720) 38 mmHg 35-45 PO2 ARTERIAL (BEAKER) (test mjte=478) 298 mmHg 80-90 O2 SATURATION ARTERIAL (BEAKER) (test pmqv=981) 99.7 % 96.0-97.0 HCO3 ARTERIAL (BEAKER) (test ohgc=052) 25 mmol/L 21-29 BASE EXCESS ARTERIAL (BEAKER) (test qjmg=467) 0.7 mmol/L -2.0-3.0 PATIENT TEMPERATURE (BEAKER) (test inwz=4562) 36.2 C FIO2 (BEAKER) (test pgkb=2759) 70.0 % SODIUM NA-STAT [id number] 15:39:00 Test Item Value Reference Range Comments SODIUM (BEAKER) (test cssx=492) 131 meq/L 135-148 GLUCOSE-STAT [id number] 15:39:00 Test Item Value Reference Range Comments GLUCOSE RANDOM (BEAKER) (test sfzm=166) 186 mg/dL 70-110 HGB/HCT (H&H) - STAT [id number] 15:39:00 Test Item Value Reference Range Comments HEMOGLOBIN (BEAKER) (test jhjt=586) 7.5 g/dL 12.0-15.0 HEMATOCRIT (BEAKER) (test roxy=735) 22.0 % 36.0-45.0 POTASSIUM-STAT [id number] 15:38:00 Test Item Value Reference Range Comments POTASSIUM (BEAKER) (test xdre=212) 5.3 meq/L 3.6-5.5 BLOOD GAS, [id number] 15:24:00 Test Item Value Reference Range Comments PH ARTERIAL (BEAKER) (test drlt=058) 7.47 7.35-7.45 PCO2 ARTERIAL (BEAKER) (test vwzy=889) 37 mmHg 35-45 PO2 ARTERIAL (BEAKER) (test yvya=242) 334 mmHg 80-90 O2 SATURATION ARTERIAL (BEAKER) (test wjcb=930) 99.8 % 96.0-97.0 HCO3 ARTERIAL (BEAKER) (test slgi=468) 26 mmol/L 21-29 BASE EXCESS ARTERIAL (BEAKER) (test tilb=495) 2.2 mmol/L -2.0-3.0 PATIENT TEMPERATURE (BEAKER) (test sygn=1583) 36.2 C FIO2 (BEAKER) (test ftoi=9149) 70.0 % SODIUM NA-STAT [id number] 15:24:00 Test Item Value Reference Range Comments SODIUM (BEAKER) (test ivun=522) 130 meq/L 135-148 GLUCOSE-STAT [id number] 15:24:00 Test Item Value Reference Range Comments GLUCOSE RANDOM (BEAKER) (test idli=478) 189 mg/dL 70-110 HGB/HCT (H&H) - STAT [id number] 15:24:00 Test Item Value Reference Range Comments HEMOGLOBIN (BEAKER) (test vmkl=583) 6.7 g/dL 12.0-15.0 HEMATOCRIT (BEAKER) (test fhrx=753) 20.0 % 36.0-45.0 POTASSIUM-STAT [id number] 15:23:00 Test Item Value Reference Range Comments POTASSIUM (BEAKER) (test tfdd=362) 5.4 meq/L 3.6-5.5 BLOOD GAS, [id number] 15:07:00 Test Item Value Reference Range Comments PH ARTERIAL (BEAKER) (test jcnn=878) 7.43 7.35-7.45 PCO2 ARTERIAL (BEAKER) (test ynec=211) 41 mmHg 35-45 PO2 ARTERIAL (BEAKER) (test ybbq=491) 365 mmHg 80-90 O2 SATURATION ARTERIAL (BEAKER) (test ulcf=952) 99.8 % 96.0-97.0 HCO3 ARTERIAL (BEAKER) (test jpch=262) 27 mmol/L 21-29 BASE EXCESS ARTERIAL (BEAKER) (test oqvo=334) 1.9 mmol/L -2.0-3.0 PATIENT TEMPERATURE (BEAKER) (test qlgv=2386) 35.8 C FIO2 (BEAKER) (test wedb=0566) 70.0 % SODIUM NA-STAT [id number] 15:07:00 Test Item Value Reference Range Comments SODIUM (BEAKER) (test tqvw=829) 129 meq/L 135-148 GLUCOSE-STAT [id number] 15:07:00 Test Item Value Reference Range Comments GLUCOSE RANDOM (BEAKER) (test odcd=498) 172 mg/dL 70-110 HGB/HCT (H&H) - STAT [id number] 15:07:00 Test Item Value Reference Range Comments HEMOGLOBIN (BEAKER) (test ioto=948) 7.1 g/dL 12.0-15.0 HEMATOCRIT (BEAKER) (test pywk=412) 21.0 % 36.0-45.0 POTASSIUM-STAT [id number] 15:04:00 Test Item Value Reference Range Comments POTASSIUM (BEAKER) (test nacd=880) 5.0 meq/L 3.6-5.5 BLOOD GAS, [id number] 14:21:00 Test Item Value Reference Range Comments PH ARTERIAL (BEAKER) (test lwqc=257) 7.43 7.35-7.45 PCO2 ARTERIAL (BEAKER) (test xyjo=751) 38 mmHg 35-45 PO2 ARTERIAL (BEAKER) (test esen=375) 360 mmHg 80-90 O2 SATURATION ARTERIAL (BEAKER) (test bogd=498) 99.8 % 96.0-97.0 HCO3 ARTERIAL (BEAKER) (test rpdp=828) 27 mmol/L 21-29 BASE EXCESS ARTERIAL (BEAKER) (test cngu=158) 0.3 mmol/L -2.0-3.0 PATIENT TEMPERATURE (BEAKER) (test cuuc=5055) 28.9 C FIO2 (BEAKER) (test pvnb=2700) 70.0 % SODIUM NA-STAT [id number] 14:21:00 Test Item Value Reference Range Comments SODIUM (BEAKER) (test pedd=529) 133 meq/L 135-148 GLUCOSE-STAT [id number] 14:21:00 Test Item Value Reference Range Comments GLUCOSE RANDOM (BEAKER) (test bicy=737) 160 mg/dL 70-110 HGB/HCT (H&H) - STAT [id number] 14:21:00 Test Item Value Reference Range Comments HEMOGLOBIN (BEAKER) (test ziaa=536) 7.5 g/dL 12.0-15.0 HEMATOCRIT (BEAKER) (test fbor=065) 22.0 % 36.0-45.0 POTASSIUM-STAT [id number] 14:20:00 Test Item Value Reference Range Comments POTASSIUM (BEAKER) (test qxae=450) 4.7 meq/L 3.6-5.5 BLOOD GAS, [id number] 13:58:00 Test Item Value Reference Range Comments PH ARTERIAL (BEAKER) (test psoe=435) 7.43 7.35-7.45 PCO2 ARTERIAL (BEAKER) (test bgpl=976) 37 mmHg 35-45 PO2 ARTERIAL (BEAKER) (test snej=270) 448 mmHg 80-90 O2 SATURATION ARTERIAL (BEAKER) (test wfrz=222) 99.9 % 96.0-97.0 HCO3 ARTERIAL (BEAKER) (test gkyo=154) 26 mmol/L 21-29 BASE EXCESS ARTERIAL (BEAKER) (test myzo=376) -0.1 mmol/L -2.0-3.0 PATIENT TEMPERATURE (BEAKER) (test vqgi=9164) 29.2 C FIO2 (BEAKER) (test zdxd=9110) 80.0 % SODIUM NA-STAT [id number] 13:58:00 Test Item Value Reference Range Comments SODIUM (BEAKER) (test qqod=722) 132 meq/L 135-148 GLUCOSE-STAT [id number] 13:58:00 Test Item Value Reference Range Comments GLUCOSE RANDOM (BEAKER) (test byly=148) 166 mg/dL 70-110 HGB/HCT (H&H) - STAT [id number] 13:58:00 Test Item Value Reference Range Comments HEMOGLOBIN (BEAKER) (test xqls=146) 7.5 g/dL 12.0-15.0 HEMATOCRIT (BEAKER) (test pmny=744) 22.0 % 36.0-45.0 POTASSIUM-STAT [id number] 13:57:00 Test Item Value Reference Range Comments POTASSIUM (BEAKER) (test fusu=936) 4.7 meq/L 3.6-5.5 BLOOD GAS, [id number] 13:35:00 Test Item Value Reference Range Comments PH ARTERIAL (BEAKER) (test solk=925) 7.51 7.35-7.45 PCO2 ARTERIAL (BEAKER) (test lzbk=909) 33 mmHg 35-45 PO2 ARTERIAL (BEAKER) (test upji=195) 453 mmHg 80-90 O2 SATURATION ARTERIAL (BEAKER) (test rjcy=057) 99.9 % 96.0-97.0 HCO3 ARTERIAL (BEAKER) (test iwxn=895) 28 mmol/L 21-29 BASE EXCESS ARTERIAL (BEAKER) (test ujnf=448) 2.7 mmol/L -2.0-3.0 PATIENT TEMPERATURE (BEAKER) (test gfpo=3640) 29.2 C FIO2 (BEAKER) (test ymgb=6899) 80.0 % GLUCOSE-STAT [id number] 13:35:00 Test Item Value Reference Range Comments GLUCOSE RANDOM (BEAKER) (test vjlj=069) 130 mg/dL 70-110 HGB/HCT (H&H) - STAT [id number] 13:35:00 Test Item Value Reference Range Comments HEMOGLOBIN (BEAKER) (test xzvq=909) 6.7 g/dL 12.0-15.0 HEMATOCRIT (BEAKER) (test nemr=076) 20.0 % 36.0-45.0 SODIUM NA-STAT [id number] 13:35:00 Test Item Value Reference Range Comments SODIUM (BEAKER) (test zvrw=971) 133 meq/L 135-148 POTASSIUM-STAT [id number] 13:34:00 Test Item Value Reference Range Comments POTASSIUM (BEAKER) (test obbl=440) 4.2 meq/L 3.6-5.5 BLOOD GAS, [id number] 13:16:00 Test Item Value Reference Range Comments PH ARTERIAL (BEAKER) (test wlms=989) 7.42 7.35-7.45 PCO2 ARTERIAL (BEAKER) (test aawo=387) 34 mmHg 35-45 PO2 ARTERIAL (BEAKER) (test dtft=204) 375 mmHg 80-90 O2 SATURATION ARTERIAL (BEAKER) (test smzs=020) 99.8 % 96.0-97.0 HCO3 ARTERIAL (BEAKER) (test rwxs=792) 23 mmol/L 21-29 BASE EXCESS ARTERIAL (BEAKER) (test aupr=431) -2.5 mmol/L -2.0-3.0 PATIENT TEMPERATURE (BEAKER) (test gltc=8098) 31.5 C FIO2 (BEAKER) (test lwkp=1460) 80.0 % SODIUM NA-STAT [id number] 13:16:00 Test Item Value Reference Range Comments SODIUM (BEAKER) (test swnm=501) 133 meq/L 135-148 HGB/HCT (H&H) - STAT [id number] 13:16:00 Test Item Value Reference Range Comments HEMOGLOBIN (BEAKER) (test hfqu=784) 6.3 g/dL 12.0-15.0 HEMATOCRIT (BEAKER) (test kjal=766) 19.0 % 36.0-45.0 CALCIUM, [id number] 13:15:00 Test Item Value Reference Range Comments CALCIUM IONIZED (BEAKER) (test eeny=661) 0.98 mmol/L 1.12-1.27 PH, BLOOD (BEAKER) (test legq=9653) 7.34 BLOOD GAS, [id number] 13:15:00 Test Item Value Reference Range Comments PH VENOUS (BEAKER) (test putd=693) 7.39 7.32-7.42 PCO2 VENOUS (BEAKER) (test fnby=718) 38 mmHg 41-51 PO2 VENOUS (BEAKER) (test rmxp=620) 43 mmHg 25-40 O2 SATURATION VENOUS (BEAKER) (test itcv=723) 90.0 % 40.0-70.0 HCO3 VENOUS (BEAKER) (test wcpr=334) 24 mmol/L 21-29 BASE EXCESS VENOUS (BEAKER) (test ojyv=214) -2.1 mmol/L -2.0-3.0 PATIENT TEMPERATURE (BEAKER) (test tyle=2210) 31.5 C FIO2 (BEAKER) (test cadb=6887) 80.0 % GLUCOSE-STAT [id number] 13:14:00 Test Item Value Reference Range Comments GLUCOSE RANDOM (BEAKER) (test cdzf=843) 92 mg/dL 70-110 POTASSIUM-STAT [id number] 13:14:00 Test Item Value Reference Range Comments POTASSIUM (BEAKER) (test gwlp=906) 3.9 meq/L 3.6-5.5 BLOOD GAS, [id number] 10:54:00 Test Item Value Reference Range Comments PH ARTERIAL (BEAKER) (test ztee=296) 7.41 7.35-7.45 PCO2 ARTERIAL (BEAKER) (test bspq=890) 39 mmHg 35-45 PO2 ARTERIAL (BEAKER) (test xfba=889) 254 mmHg 80-90 O2 SATURATION ARTERIAL (BEAKER) (test gdax=514) 99.6 % 96.0-97.0 HCO3 ARTERIAL (BEAKER) (test mowc=171) 25 mmol/L 21-29 BASE EXCESS ARTERIAL (BEAKER) (test gwly=605) -0.3 mmol/L -2.0-3.0 PATIENT TEMPERATURE (BEAKER) (test ramq=8822) 35.4 C FIO2 (BEAKER) (test btec=5431) 100.0 % HGB/HCT (H&H) - STAT [id number] 10:54:00 Test Item Value Reference Range Comments HEMOGLOBIN (BEAKER) (test zudj=796) 9.3 g/dL 12.0-15.0 HEMATOCRIT (BEAKER) (test rwqv=448) 27.0 % 36.0-45.0 SODIUM NA-STAT [id number] 10:54:00 Test Item Value Reference Range Comments SODIUM (BEAKER) (test lqkn=275) 132 meq/L 135-148 GLUCOSE-STAT [id number] 10:52:00 Test Item Value Reference Range Comments GLUCOSE RANDOM (BEAKER) (test divt=275) 94 mg/dL 70-110 POTASSIUM-STAT [id number] 10:52:00 Test Item Value Reference Range Comments POTASSIUM (BEAKER) (test sgxl=329) 4.0 meq/L 3.6-5.5 HEMOGLOBIN [id number] 09:50:00 Test Item Value Reference Range Comments HEMOGLOBIN A1C (BEAKER) (test oxxb=415) 10.6 % 4.3-6.1 PLATELET AGGREGATION: FUNCTION [id number] 08:27:00 Test Item Value Reference Range Comments WEAK ADP RESULT(BEAKER) (test 63 % 60-91 eitv=1111) PLATELET FUNCTION SCREEN 60-100% indicates normal INTERP (BEAKER) (test platelet function vefa=4190) DGST-UBFWKMOQWFQ-3210 (BEAKER) Toshia Post MD (electronic (test jffx=1765) signature) PLATELET COUNT AGG (BEAKER) 198 K/CU MM 150-450 (test yvuk=9999) for patients on clopidogrel in past two weeksPOCT-GLUCOSE [id number] 08:11: 00 Test Item Value Reference Range Comments POC-GLUCOSE METER (BEAKER) 116 mg/dL 70-110 TESTED AT [facility] [address] [place] [address] (test impk=6329) [facility] [address] [id number] 07:10:00 Test Item Value Reference Range Comments PHOSPHORUS (BEAKER) (test exfe=811) 4.5 mg/dL 2.3-4.7 [id number] 07:10:00 Test Item Value Reference Range Comments MAGNESIUM (BEAKER) (test gsdw=783) 2.1 mg/dL 1.6-2.6 BASIC METABOLIC [id number] 07:10:00 Test Item Value Reference Range Comments SODIUM (BEAKER) (test 135 meq/L 136-145 ryet=218) POTASSIUM (BEAKER) (test 4.4 meq/L 3.5-5.1 gnzq=260) CHLORIDE (BEAKER) (test 106 meq/L 98-107 ubxv=062) CO2 (BEAKER) (test 23 meq/L 22-29 olau=777) BLOOD UREA NITROGEN 40 mg/dL 7-21 (BEAKER) (test ichi=433) CREATININE (BEAKER) (test 1.67 mg/dL 0.57-1.25 tggp=739) GLUCOSE RANDOM (BEAKER) 107 mg/dL 70-105 (test pnza=029) CALCIUM (BEAKER) (test 8.3 mg/dL 8.4-10.2 qtuo=596) EGFR (BEAKER) (test 31 mL/min/1.73 sq m ESTIMATED GFR IS NOT ungh=2805) ACCURATE CREATININE CLEARANCE IN PREDICTING GLOMERULAR FILTRATION RATE. ESTIMATED GFR IS NOT APPLICABLE FOR DIALYSIS PATIENTS. B-TYPE NATRIURETIC FACTOR (BNP)2017-05-20 06:56:00 Test Item Value Reference Range Comments B-TYPE NATRIURETIC PEPTIDE (BEAKER) (test 552 pg/mL 0-100 vbkp=429) CBC W/PLT COUNT & AUTO [id number] 06:46:00 Test Item Value Reference Range Comments WHITE BLOOD CELL COUNT (BEAKER) (test oigm=555) 6.2 K/ L 3.5-10.5 RED BLOOD CELL COUNT (BEAKER) (test lgwe=699) 3.56 M/ L 3.93-5.22 HEMOGLOBIN (BEAKER) (test iltp=199) 9.1 GM/DL 11.2-15.7 HEMATOCRIT (BEAKER) (test estm=515) 29.5 % 34.1-44.9 MEAN CORPUSCULAR VOLUME (BEAKER) (test goji=457) 82.9 fL 79.4-94.8 MEAN CORPUSCULAR HEMOGLOBIN (BEAKER) (test 25.6 pg 25.6-32.2 veuy=189) MEAN CORPUSCULAR HEMOGLOBIN CONC (BEAKER) (test 30.8 GM/DL 32.2-35.5 qsrb=218) RED CELL DISTRIBUTION WIDTH (BEAKER) (test 14.4 % 11.7-14.4 typk=245) PLATELET COUNT (BEAKER) (test hmhp=589) 222 K/CU MM 150-450 MEAN PLATELET VOLUME (BEAKER) (test ehkc=690) 10.5 fL 9.4-12.3 NUCLEATED RED BLOOD CELLS (BEAKER) (test 0 /100 WBC 0-0 trgj=181) NEUTROPHILS RELATIVE PERCENT (BEAKER) (test 47 % bjya=473) LYMPHOCYTES RELATIVE PERCENT (BEAKER) (test 39 % uwhi=476) MONOCYTES RELATIVE PERCENT (BEAKER) (test 8 % qbyk=902) EOSINOPHILS RELATIVE PERCENT (BEAKER) (test 5 % xbse=502) BASOPHILS RELATIVE PERCENT (BEAKER) (test 1 % flhs=487) NEUTROPHILS ABSOLUTE COUNT (BEAKER) (test 2.90 K/ L 1.56-6.13 vqgk=922) LYMPHOCYTES ABSOLUTE COUNT (BEAKER) (test 2.37 K/ L 1.18-3.74 fblv=248) MONOCYTES ABSOLUTE COUNT (BEAKER) (test 0.49 K/ L 0.24-0.36 dfio=541) EOSINOPHILS ABSOLUTE COUNT (BEAKER) (test 0.30 K/ L 0.04-0.36 pahn=055) BASOPHILS ABSOLUTE COUNT (BEAKER) (test 0.08 K/ L 0.01-0.08 jgoa=214) IMMATURE GRANULOCYTES-RELATIVE PERCENT (BEAKER) 0 % 0-1 (test qtyz=0813) CALCIUM, [id number] 06:40:00 Test Item Value Reference Range Comments CALCIUM IONIZED (BEAKER) (test ezkl=325) 1.06 mmol/L 1.12-1.27 PH, BLOOD (BEAKER) (test cjdd=6060) 7.39 POCT-GLUCOSE [id number] 23:22:00 Test Item Value Reference Range Comments POC-GLUCOSE METER (BEAKER) 165 mg/dL 70-110 TESTED AT [facility] [address] [facility] (test kkuo=9103) [facility] [address] URINE PROTEIN ELECTROPHORESIS, [id number] 18:02:00 Test Item Value Reference Range Comments PROTEIN, URINE (BEAKER) (test 305 mg/dL 0-14 uzgb=1206) ALBUMIN URINE ELP (BEAKER) 70.9 % (test uwdc=9949) GAMMA GLOBULIN URINE (BEAKER) 29.1 % (test fsqe=1365) UPEP, ID-438 (BEAKER) (test No monoclonal bands detected. unub=4427) [id number] (BEAKER) Rocio Galindo MD (test jrpg=1203) (electronic signature) PROTEIN ELECTROPHORESIS, [id number] 17:57:00 Test Item Value Reference Range Comments ALBUMIN FRACTION (BEAKER) 2.5 g/dL 3.5-5.5 (test rbii=162) ALPHA 1 FRACTION (BEAKER) 0.3 g/dL 0.2-0.4 (test dlyb=718) ALPHA 2 FRACTION (BEAKER) 0.9 g/dL 0.5-0.9 (test nywl=975) BETA FRACTION (BEAKER) (test 0.8 g/dL 0.6-1.1 ocmb=587) GAMMA GLOBULIN FRACTION 1.0 g/dL 0.7-1.7 (BEAKER) (test umlu=890) INTERPRETATION-119 (BEAKER) Decreased albumin with (test zgve=4378) concurrent relative increases in all globulin fractions. No monoclonal bands detected. [id number] (BEAKER) Rocio Galindo MD (test jzck=1935) (electronic signature) PROTEIN TOTAL SERUM, SPEP 5.5 gm/dL 6.0-8.3 (BEAKER) (test aper=7232) POCT-GLUCOSE [id number] 17:15:00 Test Item Value Reference Range Comments POC-GLUCOSE METER (BEAKER) 209 mg/dL 70-110 TESTED AT [facility] [address] [facility] (test ziwv=5794) [facility] [address] BLOOD GAS, [id number] 15:54:00 Test Item Value Reference Range Comments PH ARTERIAL (BEAKER) (test kukb=937) 7.45 7.35-7.45 PCO2 ARTERIAL (BEAKER) (test hxrk=247) 38 mmHg 35-45 PO2 ARTERIAL (BEAKER) (test egnh=763) 69 mmHg 80-90 O2 SATURATION ARTERIAL (BEAKER) (test ridi=145) 94.5 % 96.0-97.0 HCO3 ARTERIAL (BEAKER) (test dbzj=480) 25 mmol/L 21-29 BASE EXCESS ARTERIAL (BEAKER) (test wkoy=530) 1.3 mmol/L -2.0-3.0 PATIENT TEMPERATURE (BEAKER) (test omek=1716) 37.0 C FIO2 (BEAKER) (test dbeq=0726) 36.0 % RAD, CHEST, 1 VIEW, NON [id number] 14:07:00Reason for exam:->SOB, hypoxemiaShould this be performed [...] Cespedes MDReport Verified Date/Time: 2017 14:07:07 Reading Location:[facility] [id number] Consult Reading Room POCT- GLUCOSE [id number] 11:26:00 Test Item Value Reference Range Comments POC-GLUCOSE METER (BEAKER) 262 mg/dL 70-110 TESTED AT [address] (test ieta=4259) [facility] [address] POCT-GLUCOSE [id number] 07:37:00 Test Item Value Reference Range Comments POC-GLUCOSE METER (BEAKER) 170 mg/dL 70-110 TESTED AT [address] (test ljxi=2676) [facility] [address] CALCIUM, [id number] 06:06:00 Test Item Value Reference Range Comments CALCIUM IONIZED (BEAKER) (test fxfn=714) 1.05 mmol/L 1.12-1.27 PH, BLOOD (BEAKER) (test yaeg=2834) 7.41 [id number] 05:38:00 Test Item Value Reference Range Comments PHOSPHORUS (BEAKER) (test kpsj=829) 3.9 mg/dL 2.3-4.7 [id number] 05:38:00 Test Item Value Reference Range Comments MAGNESIUM (BEAKER) (test wejz=886) 2.2 mg/dL 1.6-2.6 BASIC METABOLIC [id number] 05:38:00 Test Item Value Reference Range Comments SODIUM (BEAKER) (test 135 meq/L 136-145 fxdw=729) POTASSIUM (BEAKER) (test 4.5 meq/L 3.5-5.1 plya=152) CHLORIDE (BEAKER) (test 105 meq/L 98-107 dwhl=568) CO2 (BEAKER) (test 24 meq/L 22-29 lfzc=686) BLOOD UREA NITROGEN 41 mg/dL 7-21 (BEAKER) (test emxu=589) CREATININE (BEAKER) (test 1.74 mg/dL 0.57-1.25 qqur=987) GLUCOSE RANDOM (BEAKER) 174 mg/dL 70-105 (test lchc=787) CALCIUM (BEAKER) (test 8.4 mg/dL 8.4-10.2 esux=303) EGFR (BEAKER) (test 30 mL/min/1.73 sq m ESTIMATED GFR IS NOT ptgd=8721) ACCURATE CREATININE CLEARANCE IN PREDICTING GLOMERULAR FILTRATION RATE. ESTIMATED GFR IS NOT APPLICABLE FOR DIALYSIS PATIENTS. CBC W/PLT COUNT & AUTO [id number] 05:09:00 Test Item Value Reference Range Comments WHITE BLOOD CELL COUNT (BEAKER) (test lkui=406) 8.5 K/ L 3.5-10.5 RED BLOOD CELL COUNT (BEAKER) (test mibg=471) 3.54 M/ L 3.93-5.22 HEMOGLOBIN (BEAKER) (test qjge=257) 9.1 GM/DL 11.2-15.7 HEMATOCRIT (BEAKER) (test daoi=843) 29.1 % 34.1-44.9 MEAN CORPUSCULAR VOLUME (BEAKER) (test moau=542) 82.2 fL 79.4-94.8 MEAN CORPUSCULAR HEMOGLOBIN (BEAKER) (test 25.7 pg 25.6-32.2 ewnc=565) MEAN CORPUSCULAR HEMOGLOBIN CONC (BEAKER) (test 31.3 GM/DL 32.2-35.5 eofk=569) RED CELL DISTRIBUTION WIDTH (BEAKER) (test 14.5 % 11.7-14.4 zdja=420) PLATELET COUNT (BEAKER) (test delv=076) 201 K/CU MM 150-450 MEAN PLATELET VOLUME (BEAKER) (test gbjk=558) 10.7 fL 9.4-12.3 NUCLEATED RED BLOOD CELLS (BEAKER) (test 0 /100 WBC 0-0 atfu=276) NEUTROPHILS RELATIVE PERCENT (BEAKER) (test 56 % vqon=869) LYMPHOCYTES RELATIVE PERCENT (BEAKER) (test 32 % viyk=855) MONOCYTES RELATIVE PERCENT (BEAKER) (test 7 % iret=361) EOSINOPHILS RELATIVE PERCENT (BEAKER) (test 4 % epao=877) BASOPHILS RELATIVE PERCENT (BEAKER) (test 1 % esob=100) NEUTROPHILS ABSOLUTE COUNT (BEAKER) (test 4.80 K/ L 1.56-6.13 tpdf=536) LYMPHOCYTES ABSOLUTE COUNT (BEAKER) (test 2.73 K/ L 1.18-3.74 rlfc=683) MONOCYTES ABSOLUTE COUNT (BEAKER) (test 0.62 K/ L 0.24-0.36 gqtv=776) EOSINOPHILS ABSOLUTE COUNT (BEAKER) (test 0.30 K/ L 0.04-0.36 trlk=371) BASOPHILS ABSOLUTE COUNT (BEAKER) (test 0.06 K/ L 0.01-0.08 wvpj=270) IMMATURE GRANULOCYTES-RELATIVE PERCENT (BEAKER) 0 % 0-1 (test isvl=1618) POCT-GLUCOSE [id number] 22:08:00 Test Item Value Reference Range Comments POC-GLUCOSE METER (BEAKER) 263 mg/dL 70-110 TESTED AT [address] (test tbhp=8781) [place] [id number] POCT-GLUCOSE [id number] 17:20:00 Test Item Value Reference Range Comments POC-GLUCOSE METER (BEAKER) 233 mg/dL 70-110 TESTED AT [address] (test zsqe=5869) [place] [id number] POCT-GLUCOSE [id number] 08:28:00 Test Item Value Reference Range Comments POC-GLUCOSE METER (BEAKER) 154 mg/dL 70-110 TESTED AT [address] (test reax=3756) [facility] [address] BASIC METABOLIC [id number] 06:41:00 Test Item Value Reference Range Comments SODIUM (BEAKER) (test 135 meq/L 136-145 lzxw=368) POTASSIUM (BEAKER) (test 4.6 meq/L 3.5-5.1 mynj=275) CHLORIDE (BEAKER) (test 104 meq/L 98-107 dreu=662) CO2 (BEAKER) (test 23 meq/L 22-29 mprb=684) BLOOD UREA NITROGEN 39 mg/dL 7-21 (BEAKER) (test zmtb=809) CREATININE (BEAKER) (test 1.77 mg/dL 0.57-1.25 camu=802) GLUCOSE RANDOM (BEAKER) 173 mg/dL 70-105 (test yidu=729) CALCIUM (BEAKER) (test 8.6 mg/dL 8.4-10.2 kevu=509) EGFR (BEAKER) (test 29 mL/min/1.73 sq m ESTIMATED GFR IS NOT xhfc=8168) ACCURATE CREATININE CLEARANCE IN PREDICTING GLOMERULAR FILTRATION RATE. ESTIMATED GFR IS NOT APPLICABLE FOR DIALYSIS PATIENTS. [id number] 06:35:00 Test Item Value Reference Range Comments PHOSPHORUS (BEAKER) (test cpyf=807) 4.1 mg/dL 2.3-4.7 [id number] 06:35:00 Test Item Value Reference Range Comments MAGNESIUM (BEAKER) (test bwtg=856) 2.1 mg/dL 1.6-2.6 CALCIUM, [id number] 06:22:00 Test Item Value Reference Range Comments CALCIUM IONIZED (BEAKER) (test lijg=347) 1.10 mmol/L 1.12-1.27 PH, BLOOD (BEAKER) (test kgud=4904) 7.38 CBC W/PLT COUNT & AUTO [id number] 06:04:00 Test Item Value Reference Range Comments WHITE BLOOD CELL COUNT (BEAKER) (test tdvy=330) 9.3 K/ L 3.5-10.5 RED BLOOD CELL COUNT (BEAKER) (test mryx=518) 4.15 M/ L 3.93-5.22 HEMOGLOBIN (BEAKER) (test fxsh=942) 10.6 GM/DL 11.2-15.7 HEMATOCRIT (BEAKER) (test gkqz=319) 34.2 % 34.1-44.9 MEAN CORPUSCULAR VOLUME (BEAKER) (test lwmf=590) 82.4 fL 79.4-94.8 MEAN CORPUSCULAR HEMOGLOBIN (BEAKER) (test 25.5 pg 25.6-32.2 dtfm=835) MEAN CORPUSCULAR HEMOGLOBIN CONC (BEAKER) (test 31.0 GM/DL 32.2-35.5 zcbs=602) RED CELL DISTRIBUTION WIDTH (BEAKER) (test 14.6 % 11.7-14.4 jlma=186) PLATELET COUNT (BEAKER) (test gffs=768) 183 K/CU MM 150-450 MEAN PLATELET VOLUME (BEAKER) (test ounu=770) 11.0 fL 9.4-12.3 NUCLEATED RED BLOOD CELLS (BEAKER) (test 0 /100 WBC 0-0 obld=656) NEUTROPHILS RELATIVE PERCENT (BEAKER) (test 66 % qkog=802) LYMPHOCYTES RELATIVE PERCENT (BEAKER) (test 24 % lkjj=986) MONOCYTES RELATIVE PERCENT (BEAKER) (test 7 % nfoc=676) EOSINOPHILS RELATIVE PERCENT (BEAKER) (test 3 % mucj=309) BASOPHILS RELATIVE PERCENT (BEAKER) (test 1 % gvpr=597) NEUTROPHILS ABSOLUTE COUNT (BEAKER) (test 6.15 K/ L 1.56-6.13 uero=602) LYMPHOCYTES ABSOLUTE COUNT (BEAKER) (test 2.20 K/ L 1.18-3.74 wfsf=957) MONOCYTES ABSOLUTE COUNT (BEAKER) (test 0.62 K/ L 0.24-0.36 ibcl=028) EOSINOPHILS ABSOLUTE COUNT (BEAKER) (test 0.24 K/ L 0.04-0.36 wiqr=109) BASOPHILS ABSOLUTE COUNT (BEAKER) (test 0.06 K/ L 0.01-0.08 pjcv=459) IMMATURE GRANULOCYTES-RELATIVE PERCENT (BEAKER) 0 % 0-1 (test quka=5379) POCT-GLUCOSE [id number] 03:44:00 Test Item Value Reference Range Comments POC-GLUCOSE METER (BEAKER) 220 mg/dL 70-110 TESTED AT [address] (test blkm=0927) [place] [address] POCT-GLUCOSE [id number] 18:27:00 Test Item Value Reference Range Comments POC-GLUCOSE METER (BEAKER) 256 mg/dL 70-110 TESTED AT [address] (test wxxm=3319) [place] [address] POCT-GLUCOSE [id number] 15:45:00 Test Item Value Reference Range Comments POC-GLUCOSE METER (BEAKER) 278 mg/dL 70-110 TESTED AT [address] (test rdko=3331) [place] [address] POCT-GLUCOSE [id number] 13:22:00 Test Item Value Reference Range Comments POC-GLUCOSE METER (BEAKER) 278 mg/dL 70-110 TESTED AT [address] (test mgho=3934) [place] [address] PLATELET AGGREGATION: FUNCTION [id number] 13:18:00 Test Item Value Reference Range Comments WEAK ADP RESULT(BEAKER) (test 66 % 60-91 wnef=2455) PLATELET FUNCTION SCREEN 60-100% indicates normal INTERP (BEAKER) (test platelet function clrn=0338) [id number] (BEAKER) Rigoberto Duenas MD (electronic (test gfxa=3460) signature) PLATELET COUNT AGG (BEAKER) 204 K/CU MM 150-450 (test hxrf=6318) POCT-GLUCOSE [id number] 08:27:00 Test Item Value Reference Range Comments POC-GLUCOSE METER (BEAKER) 189 mg/dL 70-110 TESTED AT [facility] [address] [facility] (test xgbo=1632) [place] [address] CALCIUM, [id number] 06:12:00 Test Item Value Reference Range Comments CALCIUM IONIZED (BEAKER) (test lzus=137) 1.07 mmol/L 1.12-1.27 PH, BLOOD (BEAKER) (test cmyn=5392) 7.36 [id number] 05:43:00 Test Item Value Reference Range Comments PHOSPHORUS (BEAKER) (test qinx=893) 3.6 mg/dL 2.3-4.7 [id number] 05:43:00 Test Item Value Reference Range Comments MAGNESIUM (BEAKER) (test ltpv=222) 2.1 mg/dL 1.6-2.6 BASIC METABOLIC [id number] 05:43:00 Test Item Value Reference Range Comments SODIUM (BEAKER) (test 137 meq/L 136-145 hiit=480) POTASSIUM (BEAKER) (test 4.7 meq/L 3.5-5.1 klar=146) CHLORIDE (BEAKER) (test 107 meq/L 98-107 wtdk=616) CO2 (BEAKER) (test 24 meq/L 22-29 wecc=124) BLOOD UREA NITROGEN 38 mg/dL 7-21 (BEAKER) (test ljgl=551) CREATININE (BEAKER) (test 1.72 mg/dL 0.57-1.25 tvxo=101) GLUCOSE RANDOM (BEAKER) 198 mg/dL 70-105 (test eabd=639) CALCIUM (BEAKER) (test 8.3 mg/dL 8.4-10.2 aohu=208) EGFR (BEAKER) (test 30 mL/min/1.73 sq m ESTIMATED GFR IS NOT ghdx=6755) ACCURATE CREATININE CLEARANCE IN PREDICTING GLOMERULAR FILTRATION RATE. ESTIMATED GFR IS NOT APPLICABLE FOR DIALYSIS PATIENTS. CBC W/PLT COUNT & AUTO [id number] 05:05:00 Test Item Value Reference Range Comments WHITE BLOOD CELL COUNT (BEAKER) (test nsay=537) 8.6 K/ L 3.5-10.5 RED BLOOD CELL COUNT (BEAKER) (test zrcq=417) 4.20 M/ L 3.93-5.22 HEMOGLOBIN (BEAKER) (test tmtp=121) 10.7 GM/DL 11.2-15.7 HEMATOCRIT (BEAKER) (test aejg=404) 34.7 % 34.1-44.9 MEAN CORPUSCULAR VOLUME (BEAKER) (test wnny=966) 82.6 fL 79.4-94.8 MEAN CORPUSCULAR HEMOGLOBIN (BEAKER) (test 25.5 pg 25.6-32.2 lltu=339) MEAN CORPUSCULAR HEMOGLOBIN CONC (BEAKER) (test 30.8 GM/DL 32.2-35.5 zpau=642) RED CELL DISTRIBUTION WIDTH (BEAKER) (test 14.7 % 11.7-14.4 qshc=933) PLATELET COUNT (BEAKER) (test mibs=318) 198 K/CU MM 150-450 MEAN PLATELET VOLUME (BEAKER) (test muxp=264) 11.1 fL 9.4-12.3 NUCLEATED RED BLOOD CELLS (BEAKER) (test 0 /100 WBC 0-0 cgwl=567) NEUTROPHILS RELATIVE PERCENT (BEAKER) (test 63 % icmq=820) LYMPHOCYTES RELATIVE PERCENT (BEAKER) (test 28 % etge=834) MONOCYTES RELATIVE PERCENT (BEAKER) (test 6 % xfiy=416) EOSINOPHILS RELATIVE PERCENT (BEAKER) (test 3 % muox=019) BASOPHILS RELATIVE PERCENT (BEAKER) (test 1 % whze=288) NEUTROPHILS ABSOLUTE COUNT (BEAKER) (test 5.41 K/ L 1.56-6.13 qhts=682) LYMPHOCYTES ABSOLUTE COUNT (BEAKER) (test 2.37 K/ L 1.18-3.74 kaot=740) MONOCYTES ABSOLUTE COUNT (BEAKER) (test 0.50 K/ L 0.24-0.36 ufmg=210) EOSINOPHILS ABSOLUTE COUNT (BEAKER) (test 0.27 K/ L 0.04-0.36 xvbc=855) BASOPHILS ABSOLUTE COUNT (BEAKER) (test 0.06 K/ L 0.01-0.08 erjo=118) IMMATURE GRANULOCYTES-RELATIVE PERCENT (BEAKER) 0 % 0-1 (test eacj=4988) POCT-GLUCOSE [id number] 21:32:00 Test Item Value Reference Range Comments POC-GLUCOSE METER (BEAKER) 176 mg/dL 70-110 TESTED AT [address] (test jwps=4472) [place] [address] POCT-GLUCOSE [id number] 20:27:00 Test Item Value Reference Range Comments POC-GLUCOSE METER (BEAKER) 161 mg/dL 70-110 TESTED AT [address] (test sctu=0043) [place] [address] POCT-GLUCOSE [id number] 18:23:00 Test Item Value Reference Range Comments POC-GLUCOSE METER (BEAKER) 185 mg/dL 70-110 TESTED AT [address] (test disy=6890) [place] [address] POCT-GLUCOSE [id number] 13:26:00 Test Item Value Reference Range Comments POC-GLUCOSE METER (BEAKER) 282 mg/dL 70-110 TESTED AT [address] (test kerc=3386) [place] [address] URINE [id number] 10:12:00 Test Item Value Reference Range Comments CULTURE (BEAKER) (test cucv=7182) >100,000 col/mL skin todd POCT-GLUCOSE [id number] 09:01:00 Test Item Value Reference Range Comments POC-GLUCOSE METER (BEAKER) 268 mg/dL 70-110 TESTED AT [address] (test njut=8965) [place] [address] CALCIUM, [id number] 05:39:00 Test Item Value Reference Range Comments CALCIUM IONIZED (BEAKER) (test ossn=767) 0.84 mmol/L 1.12-1.27 PH, BLOOD (BEAKER) (test eqct=9797) 7.35 BASIC METABOLIC [id number] 05:07:00 Test Item Value Reference Range Comments SODIUM (BEAKER) (test 135 meq/L 136-145 jarx=116) POTASSIUM (BEAKER) (test 4.9 meq/L 3.5-5.1 nlvb=632) CHLORIDE (BEAKER) (test 106 meq/L 98-107 wkfg=106) CO2 (BEAKER) (test 22 meq/L 22-29 znhm=055) BLOOD UREA NITROGEN 43 mg/dL 7-21 (BEAKER) (test cgjm=524) CREATININE (BEAKER) (test 2.00 mg/dL 0.57-1.25 dngi=351) GLUCOSE RANDOM (BEAKER) 161 mg/dL 70-105 (test ysos=579) CALCIUM (BEAKER) (test 8.2 mg/dL 8.4-10.2 ngqj=220) EGFR (BEAKER) (test 25 mL/min/1.73 sq m ESTIMATED GFR IS NOT trpj=6083) ACCURATE CREATININE CLEARANCE IN PREDICTING GLOMERULAR FILTRATION RATE. ESTIMATED GFR IS NOT APPLICABLE FOR DIALYSIS PATIENTS. [id number] 05:06:00 Test Item Value Reference Range Comments PHOSPHORUS (BEAKER) (test eobi=239) 3.2 mg/dL 2.3-4.7 [id number] 05:06:00 Test Item Value Reference Range Comments MAGNESIUM (BEAKER) (test tkgi=601) 2.3 mg/dL 1.6-2.6 CBC W/PLT COUNT & AUTO [id number] 04:42:00 Test Item Value Reference Range Comments WHITE BLOOD CELL COUNT (BEAKER) (test haep=890) 9.5 K/ L 3.5-10.5 RED BLOOD CELL COUNT (BEAKER) (test hkyy=093) 4.17 M/ L 3.93-5.22 HEMOGLOBIN (BEAKER) (test qhtu=886) 10.5 GM/DL 11.2-15.7 HEMATOCRIT (BEAKER) (test kpbv=993) 34.2 % 34.1-44.9 MEAN CORPUSCULAR VOLUME (BEAKER) (test tkbe=712) 82.0 fL 79.4-94.8 MEAN CORPUSCULAR HEMOGLOBIN (BEAKER) (test 25.2 pg 25.6-32.2 nexi=593) MEAN CORPUSCULAR HEMOGLOBIN CONC (BEAKER) (test 30.7 GM/DL 32.2-35.5 xpfq=274) RED CELL DISTRIBUTION WIDTH (BEAKER) (test 14.6 % 11.7-14.4 rztp=034) PLATELET COUNT (BEAKER) (test rexo=054) 177 K/CU MM 150-450 MEAN PLATELET VOLUME (BEAKER) (test ufex=723) 11.1 fL 9.4-12.3 NUCLEATED RED BLOOD CELLS (BEAKER) (test 0 /100 WBC 0-0 yvnh=350) NEUTROPHILS RELATIVE PERCENT (BEAKER) (test 55 % dcgy=410) LYMPHOCYTES RELATIVE PERCENT (BEAKER) (test 36 % brrc=743) MONOCYTES RELATIVE PERCENT (BEAKER) (test 6 % ynmn=317) EOSINOPHILS RELATIVE PERCENT (BEAKER) (test 2 % rgkw=331) BASOPHILS RELATIVE PERCENT (BEAKER) (test 1 % bzpd=052) NEUTROPHILS ABSOLUTE COUNT (BEAKER) (test 5.20 K/ L 1.56-6.13 odya=041) LYMPHOCYTES ABSOLUTE COUNT (BEAKER) (test 3.37 K/ L 1.18-3.74 szek=065) MONOCYTES ABSOLUTE COUNT (BEAKER) (test 0.59 K/ L 0.24-0.36 anph=200) EOSINOPHILS ABSOLUTE COUNT (BEAKER) (test 0.21 K/ L 0.04-0.36 pnhv=767) BASOPHILS ABSOLUTE COUNT (BEAKER) (test 0.07 K/ L 0.01-0.08 fzkb=761) IMMATURE GRANULOCYTES-RELATIVE PERCENT (BEAKER) 0 % 0-1 (test negu=7967) RHEUMATOID FACTOR AB, REFLEX TO [id number] 01:52:00 Test Item Value Reference Range Comments RHEUMATOID FACTOR (BEAKER) (test gbfb=831) Negative POCT-GLUCOSE [id number] 21:57:00 Test Item Value Reference Range Comments POC-GLUCOSE METER (BEAKER) 105 mg/dL 70-110 TESTED AT [facility] [address] [facility] (test shks=9217) [facility] [address] POCT-GLUCOSE [id number] 18:11:00 Test Item Value Reference Range Comments POC-GLUCOSE METER (BEAKER) 312 mg/dL 70-110 Notified GUILHERME PIERRE/TESTED AT [facility] (test jtmu=1053) [address] [place] [address] PET, CARDIAC PERFUSION MULTIPLE STUDIES, REST AND [id number] 16:28: 00Reason for exam:->pvcs, known cadFINAL REPORT PROCEDURE: Rest/Stress MYOCARDIAL PERFUSION PET with regadenoson\XA9\ CPT CODE: 23713 INDICATION: Defined extent and severity of known [...] 23% . LVEF at stress is 36%. Polymerization Oven Tender CT images revealed a right pleural effusion [...] pleural and pericardial effusions. 7. No previous [facility] study for comparison. NONINVASIVE RISK STRATIFICATION: The above findings are considered high risk (>3% annual mortality rate) based on the following criteria: - Severe resting left ventricular dysfunction (LVEF 35%)- Stress-induced large perfusion defect ( particularly if anterior)(JACC. 2012;59(9):857-81.) Signed: Last Lopez MDReport Verified Date/Time: 05/15/2017 16:28:12 Reading Location: [address] [facility] Med ReadingRoom RAD, CHEST, 1 VIEW, NON [id number] 15:56:00Reason for exam:->SOBShould this be performed at the bedside?->YesFINAL REPORT Comparison: 05/14/2017 TECHNIQUE: Single view of the chest FINDINGS: There is a small right pleural effusion with nonspecific airspace disease. This is unchanged. Left lung is grossly clear. Cardiac silhouette is enlarged. IMPRESSION: 1. No acute cardiopulmonary disease. Signed : Sixto Monk MDReport Verified Date/Time: 05/15/2017 15:56:39 Reading Location : [facility] Radiology Reading Room POCT-GLUCOSE [id number] 12:54:00 Test Item Value Reference Range Comments POC-GLUCOSE METER (BEAKER) 308 mg/dL 70-110 Notified GUILHERME PIERRE/TESTED AT [facility] (test kytv=4431) [address] [facility] [address] U/S, RENAL WITH [id number] 11:04:00Reason for exam:->tracy, htnShould this be performed [...] the resistive indices throughout. Signed : [facility] Verified Date/Time: 05/15/2017 11:04:01 Reading Location : [place] [id number] Ultrasound Reading Room ANA TITER AND [id number] 10:57:00 Test Item Value Reference Range Comments ROGER TITER (BEAKER) (test deat=5454) :160 ROGER PATTERN (BEAKER) (test xvix=0755) Speckled ANTI-NUCLEAR ANTIBODY (ROGER)2017-05-15 10:56:00 Test Item Value Reference Range Comments ANTI-NUCLEAR ANTIBODY (ROGER) (BEAKER) (test Positive Negative stfp=828) CALCIUM, [id number] 06:00:00 Test Item Value Reference Range Comments CALCIUM IONIZED (BEAKER) (test wita=614) 1.07 mmol/L 1.12-1.27 PH, BLOOD (BEAKER) (test nnvy=4452) 7.28 HEPATITIS PANEL, [id number] 05:01:00 Test Item Value Reference Range Comments HEPATITIS A IGM ANTIBODY (BEAKER) (test Nonreactive Nonreactive avor=900) HEPATITIS B CORE IGM ANTIBODY (BEAKER) (test Nonreactive Nonreactive rbwq=526) HEPATITIS C ANTIBODY (BEAKER) (test kdsi=151) Nonreactive Nonreactive HEPATITIS B SURFACE ANTIGEN (2) (BEAKER) (test Nonreactive Nonreactive wwvs=0685) BASIC METABOLIC [id number] 04:48:00 Test Item Value Reference Range Comments SODIUM (BEAKER) (test 135 meq/L 136-145 imxv=271) POTASSIUM (BEAKER) (test 5.2 meq/L 3.5-5.1 pkmm=130) CHLORIDE (BEAKER) (test 104 meq/L 98-107 gdfw=788) CO2 (BEAKER) (test 22 meq/L 22-29 cysi=100) BLOOD UREA NITROGEN 46 mg/dL 7-21 (BEAKER) (test dmwp=824) CREATININE (BEAKER) (test 2.64 mg/dL 0.57-1.25 mdod=316) GLUCOSE RANDOM (BEAKER) 176 mg/dL 70-105 (test hywe=725) CALCIUM (BEAKER) (test 8.2 mg/dL 8.4-10.2 qdvo=998) EGFR (BEAKER) (test 18 mL/min/1.73 sq m ESTIMATED GFR IS NOT jcws=4390) ACCURATE CREATININE CLEARANCE IN PREDICTING GLOMERULAR FILTRATION RATE. ESTIMATED GFR IS NOT APPLICABLE FOR DIALYSIS PATIENTS. URIC [id number] 04:41:00 Test Item Value Reference Range Comments URIC ACID (BEAKER) (test aekw=954) 10.3 mg/dL 2.6-7.2 [id number] 04:41:00 Test Item Value Reference Range Comments MAGNESIUM (BEAKER) (test uyef=955) 2.0 mg/dL 1.6-2.6 [id number] 04:41:00 Test Item Value Reference Range Comments PHOSPHORUS (BEAKER) (test xklz=570) 4.2 mg/dL 2.3-4.7 COMPLEMENT COMPONENT [id number] 04:38:00 Test Item Value Reference Range Comments C4 COMPLEMENT (BEAKER) (test xgjt=198) 28 mg/dL 15-57 COMPLEMENT COMPONENT [id number] 04:38:00 Test Item Value Reference Range Comments C3 COMPLEMENT (BEAKER) (test rbdt=585) 103 mg/dL 82-193 CBC W/PLT COUNT & AUTO [id number] 04:22:00 Test Item Value Reference Range Comments WHITE BLOOD CELL COUNT (BEAKER) (test fxxj=020) 11.0 K/ L 3.5-10.5 RED BLOOD CELL COUNT (BEAKER) (test busa=000) 4.25 M/ L 3.93-5.22 HEMOGLOBIN (BEAKER) (test sihq=735) 10.6 GM/DL 11.2-15.7 HEMATOCRIT (BEAKER) (test ocqo=876) 35.3 % 34.1-44.9 MEAN CORPUSCULAR VOLUME (BEAKER) (test pfib=681) 83.1 fL 79.4-94.8 MEAN CORPUSCULAR HEMOGLOBIN (BEAKER) (test 24.9 pg 25.6-32.2 rxqt=612) MEAN CORPUSCULAR HEMOGLOBIN CONC (BEAKER) (test 30.0 GM/DL 32.2-35.5 tcic=219) RED CELL DISTRIBUTION WIDTH (BEAKER) (test 14.5 % 11.7-14.4 eqlv=124) PLATELET COUNT (BEAKER) (test qfxm=341) 185 K/CU MM 150-450 MEAN PLATELET VOLUME (BEAKER) (test voem=382) 10.9 fL 9.4-12.3 NUCLEATED RED BLOOD CELLS (BEAKER) (test 0 /100 WBC 0-0 humc=553) NEUTROPHILS RELATIVE PERCENT (BEAKER) (test 61 % dclg=724) LYMPHOCYTES RELATIVE PERCENT (BEAKER) (test 31 % uili=369) MONOCYTES RELATIVE PERCENT (BEAKER) (test 5 % hpjf=464) EOSINOPHILS RELATIVE PERCENT (BEAKER) (test 2 % wbsq=983) BASOPHILS RELATIVE PERCENT (BEAKER) (test 1 % fghc=213) NEUTROPHILS ABSOLUTE COUNT (BEAKER) (test 6.72 K/ L 1.56-6.13 mcox=791) LYMPHOCYTES ABSOLUTE COUNT (BEAKER) (test 3.35 K/ L 1.18-3.74 mzfa=631) MONOCYTES ABSOLUTE COUNT (BEAKER) (test 0.59 K/ L 0.24-0.36 sqmw=319) EOSINOPHILS ABSOLUTE COUNT (BEAKER) (test 0.21 K/ L 0.04-0.36 pbhy=333) BASOPHILS ABSOLUTE COUNT (BEAKER) (test 0.06 K/ L 0.01-0.08 xdbq=323) IMMATURE GRANULOCYTES-RELATIVE PERCENT (BEAKER) 0 % 0-1 (test xoho=5512) POCT-GLUCOSE [id number] 21:46:00 Test Item Value Reference Range Comments POC-GLUCOSE METER (BEAKER) 173 mg/dL 70-110 TESTED AT [address] (test snyl=7372) [place] [address] POCT-GLUCOSE [id number] 21:46:00 Test Item Value Reference Range Comments POC-GLUCOSE METER (BEAKER) 154 mg/dL 70-110 TESTED AT [address] (test llxm=5119) [place] [address] POCT-GLUCOSE [id number] 18:17:00 Test Item Value Reference Range Comments POC-GLUCOSE METER (BEAKER) 175 mg/dL 70-110 TESTED AT [address] (test lzdw=6945) [place] [address] RAD, CHEST, 1 VIEW, NON [id number] 14:56:00Reason for exam:->SOBShould this be performed at the bedside?->YesFINAL REPORT INDICATION: SOB COMPARISON: May 13, 2017 TECHNIQUE: Chest radiograph, single view, portable technique. FINDINGS / IMPRESSION: Enlarged heart shadow, small rightpleural effusion, and pulmonary venous congestion, again demonstrated. No pneumothorax or consolidation. Osseous structures unremarkable. Signed: Satnam Jean MDReport Verified Date/Time: 05/14/2017 14:56:58 Reading Location: [facility] Mammo Reading Room POCT-GLUCOSE [id number] 12:18:00 Test Item Value Reference Range Comments POC-GLUCOSE METER (BEAKER) 313 mg/dL 70-110 TESTED AT [address] (test ifwd=9645) [place] [address] HIV-1 ANTIGEN WITH HIV-1/2 [id number] 12:07:00 Test Item Value Reference Range Comments HIV-1 ANTIGEN WITH HIV 1\T\2 ANTIBODY (2) Nonreactive Nonreactive (BEAKER) (test vxgf=7400) CALCIUM, [id number] 06:37:00 Test Item Value Reference Range Comments CALCIUM IONIZED (BEAKER) (test ejbv=044) 1.08 mmol/L 1.12-1.27 PH, BLOOD (BEAKER) (test dblc=5302) 7.25 BASIC METABOLIC [id number] 06:26:00 Test Item Value Reference Range Comments SODIUM (BEAKER) (test 134 meq/L 136-145 yswc=642) POTASSIUM (BEAKER) (test 5.1 meq/L 3.5-5.1 qcjx=820) CHLORIDE (BEAKER) (test 103 meq/L 98-107 mgiu=341) CO2 (BEAKER) (test 25 meq/L 22-29 vmxo=449) BLOOD UREA NITROGEN 45 mg/dL 7-21 (BEAKER) (test tguq=592) CREATININE (BEAKER) (test 2.92 mg/dL 0.57-1.25 yain=184) GLUCOSE RANDOM (BEAKER) 163 mg/dL 70-105 (test eify=362) CALCIUM (BEAKER) (test 8.1 mg/dL 8.4-10.2 pufd=963) EGFR (BEAKER) (test 16 mL/min/1.73 sq m ESTIMATED GFR IS NOT qjdd=2748) ACCURATE CREATININE CLEARANCE IN PREDICTING GLOMERULAR FILTRATION RATE. ESTIMATED GFR IS NOT APPLICABLE FOR DIALYSIS PATIENTS. B-TYPE NATRIURETIC FACTOR (BNP)2017-05-14 06:26:00 Test Item Value Reference Range Comments B-TYPE NATRIURETIC PEPTIDE (BEAKER) (test 474 pg/mL 0-100 khrt=334) [id number] 06:25:00 Test Item Value Reference Range Comments PHOSPHORUS (BEAKER) (test ueet=412) 5.7 mg/dL 2.3-4.7 [id number] 06:25:00 Test Item Value Reference Range Comments MAGNESIUM (BEAKER) (test vssi=248) 1.5 mg/dL 1.6-2.6 CBC W/PLT COUNT & AUTO [id number] 06:07:00 Test Item Value Reference Range Comments WHITE BLOOD CELL COUNT (BEAKER) (test tdok=879) 8.9 K/ L 3.5-10.5 RED BLOOD CELL COUNT (BEAKER) (test mzfr=128) 4.32 M/ L 3.93-5.22 HEMOGLOBIN (BEAKER) (test wnpl=308) 11.0 GM/DL 11.2-15.7 HEMATOCRIT (BEAKER) (test ymwd=690) 36.6 % 34.1-44.9 MEAN CORPUSCULAR VOLUME (BEAKER) (test dwln=401) 84.7 fL 79.4-94.8 MEAN CORPUSCULAR HEMOGLOBIN (BEAKER) (test 25.5 pg 25.6-32.2 pqck=086) MEAN CORPUSCULAR HEMOGLOBIN CONC (BEAKER) (test 30.1 GM/DL 32.2-35.5 veyd=568) RED CELL DISTRIBUTION WIDTH (BEAKER) (test 14.6 % 11.7-14.4 ztjv=891) PLATELET COUNT (BEAKER) (test sbab=525) 201 K/CU MM 150-450 MEAN PLATELET VOLUME (BEAKER) (test mcvd=178) 11.1 fL 9.4-12.3 NUCLEATED RED BLOOD CELLS (BEAKER) (test 0 /100 WBC 0-0 ixfi=145) NEUTROPHILS RELATIVE PERCENT (BEAKER) (test 55 % klvx=661) LYMPHOCYTES RELATIVE PERCENT (BEAKER) (test 36 % nqwx=725) MONOCYTES RELATIVE PERCENT (BEAKER) (test 5 % ecld=845) EOSINOPHILS RELATIVE PERCENT (BEAKER) (test 3 % omkz=068) BASOPHILS RELATIVE PERCENT (BEAKER) (test 1 % qbey=851) NEUTROPHILS ABSOLUTE COUNT (BEAKER) (test 4.85 K/ L 1.56-6.13 jbnd=364) LYMPHOCYTES ABSOLUTE COUNT (BEAKER) (test 3.18 K/ L 1.18-3.74 pgcr=562) MONOCYTES ABSOLUTE COUNT (BEAKER) (test 0.47 K/ L 0.24-0.36 kpsz=328) EOSINOPHILS ABSOLUTE COUNT (BEAKER) (test 0.25 K/ L 0.04-0.36 xrfd=317) BASOPHILS ABSOLUTE COUNT (BEAKER) (test 0.07 K/ L 0.01-0.08 pyny=807) IMMATURE GRANULOCYTES-RELATIVE PERCENT (BEAKER) 0 % 0-1 (test fdge=2845) POCT-GLUCOSE [id number] 22:38:00 Test Item Value Reference Range Comments POC-GLUCOSE METER (BEAKER) 262 mg/dL 70-110 TESTED AT [facility] [address] (test mxhq=1730) [place] [address] PROTEIN, RANDOM [id number] 22:18:00 Test Item Value Reference Range Comments PROTEIN, URINE (BEAKER) (test cxdt=2730) 641 mg/dL 0-14 CREATININE, RANDOM [id number] 22:07:00 Test Item Value Reference Range Comments CREATININE URINE (BEAKER) (test ebnl=995) 124.9 mg/dL Reference Range: No NormalsURINALYSIS W/ [id number] 22:03:00 Test Item Value Reference Range Comments COLOR (BEAKER) (test kbdf=694) Yellow CLARITY (BEAKER) (test huyu=907) Cloudy SPECIFIC GRAVITY UA (BEAKER) (test jcre=575) 1.015 1.001-1.035 PH UA (BEAKER) (test tzmy=916) 5.5 5.0-8.0 PROTEIN UA (BEAKER) (test klum=397) 300 mg/dL Negative GLUCOSE UA (BEAKER) (test jopb=178) 300 mg/dL Negative KETONES UA (BEAKER) (test yjgp=666) Negative Negative BILIRUBIN UA (BEAKER) (test kilk=753) Negative Negative BLOOD UA (BEAKER) (test redi=705) Trace Negative NITRITE UA (BEAKER) (test gpsi=895) Negative Negative LEUKOCYTE ESTERASE UA (BEAKER) (test cgih=308) Moderate Negative UROBILINOGEN UA (BEAKER) (test ivoi=836) 0.2 mg/dL 0.2-1.0 RBC UA (BEAKER) (test ftse=277) 11 /HPF WBC UA (BEAKER) (test yefb=234) 36 /HPF MUCUS (BEAKER) (test fedd=8092) Few SQUAMOUS EPITHELIAL (BEAKER) (test egrd=189) 12 /HPF HYALINE CASTS (BEAKER) (test zqps=592) 66 /LPF CASTS (BEAKER) (test zwre=7205) 112 /LPF YEAST (BEAKER) (test qxzw=4797) Moderate SOURCE(BEAKER) (test vtmz=5276) Urine, Voided [id number] 19:49:00 Test Item Value Reference Range Comments SODIUM (BEAKER) (test nrsb=892) 136 meq/L 136-145 POTASSIUM (BEAKER) (test 5.1 meq/L 3.5-5.1 Specimen slightly hemolyzed ouxq=892) CHLORIDE (BEAKER) (test 104 meq/L 98-107 usct=807) CO2 (BEAKER) (test lfpz=694) 25 meq/L 22-29 Call if K > 5POCT-GLUCOSE [id number] 11:37:00 Test Item Value Reference Range Comments POC-GLUCOSE METER (BEAKER) 293 mg/dL 70-110 TESTED AT [address] (test qnpd=6608) [place] [address] RAD, CHEST, 1 VIEW, NON [id number] 10:22:00Reason for exam:->SOBShould this be performed at the bedside?->YesFINAL REPORT Chest one view Discussion: There is cardiomegaly and interstitial congestion. A small right-sided effusion is noted. No pneumothorax. IMPRESSIONS: Suspected CHF. Signed: Jeannette Nava Verified Date/Time: 05/13/2017 10:22:34 Reading Location: [facility] Radiology Reading Room POCT-GLUCOSE [id number] 08:34:00 Test Item Value Reference Range Comments POC-GLUCOSE METER (BEAKER) 178 mg/dL 70-110 TESTED AT [address] (test tvlr=3418) [place] [address] POCT-GLUCOSE [id number] 06:53:00 Test Item Value Reference Range Comments POC-GLUCOSE METER (BEAKER) 167 mg/dL 70-110 TESTED AT [address] (test aecy=0426) [place] [address] [id number] 04:48:00 Test Item Value Reference Range Comments BLOOD UREA NITROGEN (BEAKER) (test jpww=088) 36 mg/dL 7-21 [id number] 04:48:00 Test Item Value Reference Range Comments SODIUM (BEAKER) (test cpqp=854) 139 meq/L 136-145 POTASSIUM (BEAKER) (test ukaw=249) 5.2 meq/L 3.5-5.1 CHLORIDE (BEAKER) (test rzbv=453) 109 meq/L 98-107 CO2 (BEAKER) (test dlwz=110) 23 meq/L 22-29 [id number] 04:48:00 Test Item Value Reference Range Comments CREATININE (BEAKER) (test 1.73 mg/dL 0.57-1.25 lwqv=278) EGFR (BEAKER) (test 30 mL/min/1.73 sq m ESTIMATED GFR IS NOT swzz=5808) ACCURATE CREATININE CLEARANCE IN PREDICTING GLOMERULAR FILTRATION RATE. ESTIMATED GFR IS NOT APPLICABLE FOR DIALYSIS PATIENTS. CBC (HEMOGRAM ONLY)2017-05-13 04:33:00 Test Item Value Reference Range Comments WHITE BLOOD CELL COUNT (BEAKER) (test hggt=584) 10.2 K/ L 3.5-10.5 RED BLOOD CELL COUNT (BEAKER) (test klcr=966) 4.54 M/ L 3.93-5.22 HEMOGLOBIN (BEAKER) (test zyop=678) 11.4 GM/DL 11.2-15.7 HEMATOCRIT (BEAKER) (test seai=804) 37.6 % 34.1-44.9 MEAN CORPUSCULAR VOLUME (BEAKER) (test cdqj=182) 82.8 fL 79.4-94.8 MEAN CORPUSCULAR HEMOGLOBIN (BEAKER) (test 25.1 pg 25.6-32.2 gnmy=583) MEAN CORPUSCULAR HEMOGLOBIN CONC (BEAKER) (test 30.3 GM/DL 32.2-35.5 bfop=231) RED CELL DISTRIBUTION WIDTH (BEAKER) (test 14.7 % 11.7-14.4 oaqp=910) PLATELET COUNT (BEAKER) (test cami=433) 194 K/CU MM 150-450 MEAN PLATELET VOLUME (BEAKER) (test tqud=378) 10.9 fL 9.4-12.3 NUCLEATED RED BLOOD CELLS (BEAKER) (test 0 /100 WBC 0-0 agtn=635) [id number] 23:29:00 Test Item Value Reference Range Comments ACTIVATED CLOTTING TIME 136 sec TESTED AT [address] (BEAKER) (test yfia=203) [facility] [address] [id number] 20:13:00 Test Item Value Reference Range Comments ACTIVATED CLOTTING TIME 175 sec TESTED AT [facility] [address] (BEAKER) (test tbpz=056) [place] [address] [id number] 18:36:00 Test Item Value Reference Range Comments ACTIVATED CLOTTING TIME 202 sec TESTED AT [place] [address] [address] (BEAKER) (test moqx=154) [place] [address] [id number] 18:03:00 Test Item Value Reference Range Comments ACTIVATED CLOTTING TIME 208 sec TESTED AT [place] [address] [address] (BEAKER) (test svlp=461) [place] [address] BASIC METABOLIC [id number] 11:57:00 Test Item Value Reference Range Comments SODIUM (BEAKER) (test 139 meq/L 136-145 uggi=495) POTASSIUM (BEAKER) (test 4.9 meq/L 3.5-5.1 tasd=144) CHLORIDE (BEAKER) (test 107 meq/L 98-107 xzgk=306) CO2 (BEAKER) (test 27 meq/L 22-29 igdb=739) BLOOD UREA NITROGEN 36 mg/dL 7-21 (BEAKER) (test kyem=754) CREATININE (BEAKER) (test 1.60 mg/dL 0.57-1.25 irfy=060) GLUCOSE RANDOM (BEAKER) 187 mg/dL 70-105 (test nyig=821) CALCIUM (BEAKER) (test 8.6 mg/dL 8.4-10.2 sfmx=234) EGFR (BEAKER) (test 33 mL/min/1.73 sq m ESTIMATED GFR IS NOT eaoa=0569) ACCURATE CREATININE CLEARANCE IN PREDICTING GLOMERULAR FILTRATION RATE. ESTIMATED GFR IS NOT APPLICABLE FOR DIALYSIS PATIENTS. PROTHROMBIN [id number] 11:15:00 Test Item Value Reference Range Comments PROTIME (BEAKER) (test sbjt=385) 14.8 seconds 11.7-14.7 INR (BEAKER) (test bkse=402) 1.2 <=5.9 RECOMMENDED COUMADIN/WARFARIN INR THERAPY RANGESSTANDARD DOSE: 2.0 - 3.0 Includes: PROPHYLAXIS forvenous thrombosis, systemic embolization; TREATMENT for venous thrombosis and/or pulmonary embolus.HIGH RISK: Target INR is 2.5-3.5 for patients with mechanical heart valves.Within 24 hours, if on CoumadinCBC W/ PLT COUNT & AUTO [id number] 11:01:00 Test Item Value Reference Range Comments WHITE BLOOD CELL COUNT (BEAKER) (test iocm=401) 9.1 K/ L 3.5-10.5 RED BLOOD CELL COUNT (BEAKER) (test vidi=641) 4.62 M/ L 3.93-5.22 HEMOGLOBIN (BEAKER) (test plev=864) 11.7 GM/DL 11.2-15.7 HEMATOCRIT (BEAKER) (test yqrw=370) 38.0 % 34.1-44.9 MEAN CORPUSCULAR VOLUME (BEAKER) (test kuty=734) 82.3 fL 79.4-94.8 MEAN CORPUSCULAR HEMOGLOBIN (BEAKER) (test 25.3 pg 25.6-32.2 qmab=383) MEAN CORPUSCULAR HEMOGLOBIN CONC (BEAKER) (test 30.8 GM/DL 32.2-35.5 oinp=178) RED CELL DISTRIBUTION WIDTH (BEAKER) (test 14.5 % 11.7-14.4 rulv=600) PLATELET COUNT (BEAKER) (test sovo=234) 205 K/CU MM 150-450 MEAN PLATELET VOLUME (BEAKER) (test ljgg=923) 10.6 fL 9.4-12.3 NUCLEATED RED BLOOD CELLS (BEAKER) (test 0 /100 WBC 0-0 bqgj=359) NEUTROPHILS RELATIVE PERCENT (BEAKER) (test 59 % qwkh=693) LYMPHOCYTES RELATIVE PERCENT (BEAKER) (test 32 % prtw=445) MONOCYTES RELATIVE PERCENT (BEAKER) (test 5 % jlga=854) EOSINOPHILS RELATIVE PERCENT (BEAKER) (test 3 % fhcc=023) BASOPHILS RELATIVE PERCENT (BEAKER) (test 1 % gmbn=898) NEUTROPHILS ABSOLUTE COUNT (BEAKER) (test 5.36 K/ L 1.56-6.13 luhw=399) LYMPHOCYTES ABSOLUTE COUNT (BEAKER) (test 2.86 K/ L 1.18-3.74 lssy=291) MONOCYTES ABSOLUTE COUNT (BEAKER) (test 0.48 K/ L 0.24-0.36 wfek=598) EOSINOPHILS ABSOLUTE COUNT (BEAKER) (test 0.27 K/ L 0.04-0.36 kaoo=121) BASOPHILS ABSOLUTE COUNT (BEAKER) (test 0.08 K/ L 0.01-0.08 dsdm=452) IMMATURE GRANULOCYTES-RELATIVE PERCENT (BEAKER) 0 % 0-1 (test xvdu=6489) POCT-GLUCOSE [id number] 12:35:00 Test Item Value Reference Range Comments POC-GLUCOSE METER (BEAKER) 249 mg/dL 70-110 TESTED AT [address] (test mzmm=0245) [place] [address] POCT-GLUCOSE [id number] 09:10:00 Test Item Value Reference Range Comments POC-GLUCOSE METER (BEAKER) 155 mg/dL 70-110 TESTED AT [address] (test skew=8574) [place] [address] BASIC METABOLIC [id number] 05:39:00 Test Item Value Reference Range Comments SODIUM (BEAKER) (test 138 meq/L 136-145 xgba=179) POTASSIUM (BEAKER) (test 4.7 meq/L 3.5-5.1 ecyj=089) CHLORIDE (BEAKER) (test 107 meq/L 98-107 hxji=073) CO2 (BEAKER) (test 25 meq/L 22-29 bwfm=888) BLOOD UREA NITROGEN 36 mg/dL 7-21 (BEAKER) (test ubmg=781) CREATININE (BEAKER) (test 1.75 mg/dL 0.57-1.25 pgvk=532) GLUCOSE RANDOM (BEAKER) 126 mg/dL 70-105 (test hxxy=609) CALCIUM (BEAKER) (test 8.2 mg/dL 8.4-10.2 btnw=657) EGFR (BEAKER) (test 29 mL/min/1.73 sq m ESTIMATED GFR IS NOT nvuv=6413) ACCURATE CREATININE CLEARANCE IN PREDICTING GLOMERULAR FILTRATION RATE. ESTIMATED GFR IS NOT APPLICABLE FOR DIALYSIS PATIENTS. [id number] 05:27:00 Test Item Value Reference Range Comments PHOSPHORUS (BEAKER) (test bhum=701) 5.0 mg/dL 2.3-4.7 [id number] 05:27:00 Test Item Value Reference Range Comments MAGNESIUM (BEAKER) (test aoul=406) 1.6 mg/dL 1.6-2.6 POCT-GLUCOSE [id number] 05:25:00 Test Item Value Reference Range Comments POC-GLUCOSE METER (BEAKER) 144 mg/dL 70-110 TESTED AT [address] (test lwps=0379) [place] [address] PROTHROMBIN [id number] 04:58:00 Test Item Value Reference Range Comments PROTIME (BEAKER) (test ofgr=440) 14.2 seconds 11.7-14.7 INR (BEAKER) (test keuh=237) 1.1 <=5.9 RECOMMENDED COUMADIN/WARFARIN INR THERAPY RANGESSTANDARD DOSE: 2.0 - 3.0 Includes: PROPHYLAXIS forvenous thrombosis, systemic embolization; TREATMENT for venous thrombosis and/or pulmonary embolus.HIGH RISK: Target INR is 2.5-3.5 for patients with mechanical heart valves.POCT-GLUCOSE [id number] 23:55:00 Test Item Value Reference Range Comments POC-GLUCOSE METER (BEAKER) 86 mg/dL 70-110 TESTED AT [address] (test oahx=2572) [place] [address] B-TYPE NATRIURETIC FACTOR (BNP)2017-04-22 18:13:00 Test Item Value Reference Range Comments B-TYPE NATRIURETIC PEPTIDE (BEAKER) (test 1203 pg/mL 0-100 ntnn=675) POCT-GLUCOSE [id number] 17:36:00 Test Item Value Reference Range Comments POC-GLUCOSE METER (BEAKER) 259 mg/dL 70-110 TESTED AT [address] (test reys=8792) [place] [address] HEMOGLOBIN [id number] 14:24:00 Test Item Value Reference Range Comments HEMOGLOBIN A1C (BEAKER) (test hkkc=794) 10.5 % 4.3-6.1 POCT-GLUCOSE [id number] 12:34:00 Test Item Value Reference Range Comments POC-GLUCOSE METER (BEAKER) 207 mg/dL 70-110 TESTED AT [address] (test sxmi=8160) [place] [address] [id number] 07:53:00 Test Item Value Reference Range Comments PHOSPHORUS (BEAKER) (test qsrp=061) 3.9 mg/dL 2.3-4.7 [id number] 07:53:00 Test Item Value Reference Range Comments MAGNESIUM (BEAKER) (test cxkt=851) 1.6 mg/dL 1.6-2.6 BASIC METABOLIC [id number] 07:53:00 Test Item Value Reference Range Comments SODIUM (BEAKER) (test 139 meq/L 136-145 ewpm=574) POTASSIUM (BEAKER) (test 4.5 meq/L 3.5-5.1 qotp=619) CHLORIDE (BEAKER) (test 108 meq/L 98-107 srwk=511) CO2 (BEAKER) (test 25 meq/L 22-29 mvty=924) BLOOD UREA NITROGEN 29 mg/dL 7-21 (BEAKER) (test zgeg=909) CREATININE (BEAKER) (test 1.54 mg/dL 0.57-1.25 jyds=808) GLUCOSE RANDOM (BEAKER) 211 mg/dL 70-105 (test rlsc=957) CALCIUM (BEAKER) (test 8.5 mg/dL 8.4-10.2 strw=729) EGFR (BEAKER) (test 34 mL/min/1.73 sq m ESTIMATED GFR IS NOT pqba=0023) ACCURATE CREATININE CLEARANCE IN PREDICTING GLOMERULAR FILTRATION RATE. ESTIMATED GFR IS NOT APPLICABLE FOR DIALYSIS PATIENTS. TROPONIN [id number] 07:29:00 Test Item Value Reference Range Comments TROPONIN I (BEAKER) (test fjdh=275) 0.05 ng/mL 0.00-0.03 Troponin I (TnI) levels [...] acidosis, acute neurological disease, and persistent tachyarrhythmia.PROTHROMBIN [id number] 07:01:00 Test Item Value Reference Range Comments PROTIME (BEAKER) (test iyjf=904) 13.8 seconds 11.7-14.7 INR (BEAKER) (test hxio=321) 1.1 <=5.9 RECOMMENDED COUMADIN/WARFARIN INR THERAPY RANGESSTANDARD DOSE: 2.0 - 3.0 Includes: PROPHYLAXIS forvenous thrombosis, systemic embolization; TREATMENT for venous thrombosis and/or pulmonary embolus.HIGH RISK: Target INR is 2.5-3.5 for patients with mechanical heart valves.POCT-GLUCOSE [id number] 06:28:00 Test Item Value Reference Range Comments POC-GLUCOSE METER (BEAKER) 198 mg/dL 70-110 TESTED AT [address] (test bdcl=8184) [place] [id number] CREATINE KINASE (CK), TOTAL AND [id number] 00:49:00 Test Item Value Reference Range Comments CREATINE KINASE TOTAL (BEAKER) (test mmxy=475) 69 U/L 29-200 CREATINE KINASE-MB (AKER) (test rxcs=506) 4.3 ng/mL 0.0-6.6 CREATINE KINASE-MB INDEX (SERVANDOAKER) (test ohym=301) 6.2 % CK-MB Reference Range:<6.7 Normal6.7-10.0 Borderline>10.0 AbnormalTROPONIN [id number] 00:49:00 Test Item Value Reference Range Comments TROPONIN I (SERVANDOAKER) (test zhze=130) 0.05 ng/mL 0.00-0.03 Troponin I (TnI) levels [...] acidosis, acute neurological disease, and persistent tachyarrhythmia.POCT-GLUCOSE [id number] 20:44:00 Test Item Value Reference Range Comments POC-GLUCOSE METER ([facility]) 269 mg/dL 70-110 TESTED AT [address] (test gijk=9888) [place] [id number]
[2018-08-10] MEDS ORDERED: LEVALBUTEROL 1.25 MG/3 ML NEB ONE (15:30)
[2018-08-10] MEDS ORDERED: FENTANYL CITR 100 MCG/2 ML ONE (15:32)
--- NOTE | 2018-08-10 15:43 | RAD REPORT ---
EXAM DESCRIPTION: RAD - Chest Single View - 08/10/2018 3:36 pm CLINICAL HISTORY: anasarca. SOB Chest pain. COMPARISON: Chest Pa And Lat (2 Views) dated 05/27/2018; Chest Pa And Lat (2 Views) dated 05/26/2018; Chest Pa And Lat (2 Views) dated 03/18/2018; Chest Single View dated 03/16/2018 FINDINGS: Portable technique limits examination quality. Mild interstitial pulmonary edema seen. The heart is significantly enlarged with changes of a prior C ABG seen. Small to moderate right pleural effusion. IMPRESSION: Mild to moderate CHF.
[2018-08-10 16:06] LABS: Absolute Lymphocytes (CBC) 1.8 K/uL (0.7-4.9); Absolute Monocytes 0.3 K/uL (0.1-1.3); Absolute Neutrophil 3.7 K/uL (1.8-8.0); Basophils % 0.9 % (0-1.3); Eosinophils % 2.2 % (0-4.4); Hematocrit 37.5 % (36.0-45.0); Lymphocytes % 30.4 % (15.3-44.8); Monocytes % 4.9 % (3.3-12.3); RBC Red Blood Cell Count 4.49 M/uL (3.86-4.86)
[2018-08-10 16:10] LABS: Protime INR 1.15
[2018-08-10 16:26] LABS: Albumin 2.9 g/dL (3.4-5.0); Bilirubin Direct 0.1 mg/dL (0-0.2); Bilirubin Total 0.4 mg/dL (0.2-1.0); Potassium 3.9 mmol/L (3.5-5.1); Protein, Total 7.4 g/dL (6.4-8.2); Troponin (Emerg Dept Use Only) 0.04 ng/mL (0.0-0.045)
[2018-08-10] MEDS ORDERED: NITROGLYCERIN 0.4 MG/TAB SL ONE (16:48)
--- NOTE | 2018-08-10 17:40 | EDPHYS ---
Physician Documentation [facility] Name: Christy Priest Age: 63 yrs Sex: Female : 1955 Arrival Date: 08/10/2018 Time: 14:05 Bed 6 Private MD: ED Physician Franky Joy HPI: 08/10 15:23 This 63 yrs old Female presents to ER via Ambulatory with complaints of wa Abdominal Swelling, Leg Swelling, Breathing Difficulty. 15:23 The patient has shortness of breath at rest, and the patient has a history of lung wa disease, kidney disease. heart disease. Onset: The symptoms/episode began/occurred 2 week(s) ago. Duration: The symptoms are continuous, and are steadily getting worse. The patient's shortness of breath is aggravated by exertion, light activity, prone position, supine position, walking, is alleviated by nothing. Associated signs and symptoms: Pertinent negatives: chest pain, productive cough, diaphoresis, dizziness, fever, hemoptysis. Severity of symptoms: At their worst the symptoms were moderate in the emergency department the symptoms are worse. The patient has experienced similar episodes in the past, several times. The patient has not recently seen a physician. h/o renal disease. states has noted swelling of the extremities up to level of belly button. c/o SOB. denies chest pain. states fluid pills at home not working. denies h/o liver disease. states still smokes cigarettes occasionally. Historical: - Allergies: 14:13 Augmentin; sv 14:13 basil; sv 14:13 Morphine; sv 14:13 Nitroglycerin; sv 14:13 Tramadol HCl; sv 14:13 Trazodone; sv 14:13 Vancomycin; sv - Home Meds: 15:52 gabapentin Oral [Active]; Hydralazine Oral [Active]; insulin [Active]; Lasix Oral hb [Active]; Plavix Oral [Active]; - PMHx: 14:13 CHF; COPD; Diabetes - IDDM; ESRD; High Cholesterol; Hypertension; triple bypass; sv uterine cancer; - PSHx: 14:13 CABG; sv - Immunization history:: Adult Immunizations up to date. - Social history:: Smoking status: Patient/guardian denies using tobacco, Patient/guardian denies using alcohol, street drugs. - Family history:: not pertinent. - Ebola Screening: : No symptoms or risks identified at this time. - Hospitalizations: : No recent hospitalization is reported. ROS: 15:28 Constitutional: Negative for fever, chills, and weight loss, Eyes: Negative for injury, wa pain, redness, and discharge, ENT: Negative for injury, pain, and discharge, Neck: Negative for injury, pain, and swelling, Back: Negative for injury and pain, : Negative for injury, bleeding, discharge, and swelling, Skin: Negative for injury, rash, and discoloration, Neuro: Negative for headache, weakness, numbness, tingling, and seizure, Psych: Negative for depression, anxiety, suicide ideation, homicidal ideation, and hallucinations. 15:29 Cardiovascular: Positive for edema, orthopnea, paroxysmal nocturnal dyspnea, Negative wa for chest pain. 15:29 Respiratory: Positive for shortness of breath, at rest. Negative for hemoptysis. 15:29 Abdomen/GI: Positive for abdominal distension, Negative for nausea and vomiting. 15:29 MS/extremity: Positive for swelling, tenderness, of the right leg and left leg, Negative for deformity, ecchymosis, erythema. 15:29 All other systems are negative. Exam: 15:31 Constitutional: This is a well developed, well nourished patient who is awake, alert, wa and in no acute distress. Head/Face: Normocephalic, atraumatic. Eyes: Pupils equal round and reactive to light, extra-ocular motions intact. Lids and lashes normal. Conjunctiva and sclera are non-icteric and not injected. Cornea within normal limits. Periorbital areas with no swelling, redness, or edema. ENT: Nares patent. No nasal discharge, no septal abnormalities noted. Tympanic membranes are normal and external auditory canals are clear. Oropharynx with no redness, swelling, or masses, exudates, or evidence of obstruction, uvula midline. Mucous membranes moist. Neck: Trachea midline, no thyromegaly or masses palpated, and no cervical lymphadenopathy. Supple, full range of motion without nuchal rigidity, or vertebral point tenderness. No Meningismus. Chest/axilla: Normal chest wall appearance and motion. Nontender with no deformity. No lesions are appreciated. Cardiovascular: Regular rate and rhythm with a normal S1 and S2. No gallops, murmurs, or rubs. Normal PMI, no JVD. No pulse deficits. Back: No spinal tenderness. No costovertebral tenderness. Full range of motion. Skin: Warm, dry with normal turgor. Normal color with no rashes, no lesions, and no evidence of cellulitis. Neuro: Awake and alert, GCS 15, oriented to person, place, time, and situation. Cranial nerves II-XII grossly intact. Motor strength 5/5 in all extremities. Sensory grossly intact. Cerebellar exam normal. Normal gait. 15:31 Respiratory: the patient does not display signs of respiratory distress, Respirations: normal, Breath sounds: decreased breath sounds, that are moderate, are scattered, wheezing: expiratory that is mild. 15:31 Abdomen/GI: Inspection: distension, that is moderate, Bowel sounds: normal, Palpation: mild abdominal tenderness, in all quadrants. Vital Signs: 14:13 Pulse 78; Resp 22; Temp 98.2; Pulse Ox 95% ; Weight 89.81 kg; Height 5 ft. 7 in. sv (170.18 cm); Pain 0/10; 14:38 BP 203 / 86; hb 15:00 BP 214 / 93; Pulse 76; Resp 20; Pulse Ox 97% on 2 lpm NC; hb 15:45 BP 213 / 98; Pulse 75; Resp 22; Pulse Ox 100% on Nebulizer Mask; hb 16:30 BP 208 / 95; Pulse 72; Resp 21; Pulse Ox 96% on 2 lpm NC; hb 17:30 BP 206 / 103; Pulse 73; Resp 22; Pulse Ox 94% on 2 lpm NC; hb 18:30 BP 197 / 103; Pulse 74; Resp 22; Pulse Ox 97% on 2 lpm NC; hb 14:13 Body Mass Index 31.01 (89.81 kg, 170.18 cm) sv MDM: 14:24 Patient medically screened. wv 15:32 Differential diagnosis: noted anasarca. SOB. CHF? r/o liver disease. wv 17:32 Data reviewed: vital signs, nurses notes, lab test result(s), EKG, radiologic studies. wv Test interpretation: by ED physician or midlevel provider: EKG: HR 74. sinus. Rightward axis. non-specific interventricular delay. diffuse ST-T changes. [place] [address]. hyperglycemia [place] 173. renal insufficiency GFR 19. low alb at 2.9. alk inessa at 231. CXR; Mod CHF. . 17:37 ED course: anasarca. CHF. nitro and lasix given. renal insufficient with GFR at 19. wv will consult renal. cardiology eval for CHF . 08/10 15:04 Order name: Blood Culture Adult (2) wv 08/10 15:04 Order name: BMP; Complete Time: 17:01 wv 08/10 15:04 Order name: CBC with Diff; Complete Time: 17:01 wv 08/10 15:04 Order name: Hepatic Function; Complete Time: 17:01 wv 08/10 15:04 Order name: Lipase; Complete Time: 17:02 wv 08/10 15:04 Order name: Magnesium; Complete Time: 17:02 wv 08/10 15:04 Order name: XRAY CXR (1 view); Complete Time: 16:06 wv 08/10 15:04 Order name: NT PRO-BNP; Complete Time: 17:01 wv 08/10 15:04 Order name: PT-INR; Complete Time: 17:02 wv 08/10 15:04 Order name: Ptt, Activated; Complete Time: 17:02 wv 08/10 15:04 Order name: Troponin (emerg Dept Use Only); Complete Time: 17:02 wv 08/10 15:04 Order name: EKG; Complete Time: 15:05 wv 08/10 15:04 Order name: Cardiac monitoring; Complete Time: 15:45 wv 08/10 15:04 Order name: EKG - Nurse/Tech; Complete Time: 15:45 wv 08/10 15:04 Order name: IV Saline Lock; Complete Time: 15:45 wv 08/10 15:04 Order name: Labs collected and sent; Complete Time: 15:45 wv 08/10 15:04 Order name: O2 Per Protocol; Complete Time: 15:45 wv 08/10 15:04 Order name: O2 Sat Monitoring; Complete Time: 15:45 wv Administered Medications: 15:30 Drug: fentaNYL (PF) 50 mcg Route: IVP; Site: right forearm; hb 16:14 Follow up: Response: No adverse reaction hb 15:33 Drug: Xopenex 1.25 mg Route: Inhalation; hb 16:10 Follow up: Response: No adverse reaction hb 16:33 Drug: Nitroglycerin 0.4 mg Route: Sublingual; hb 17:30 Follow up: Response: No adverse reaction hb 16:41 Drug: fentaNYL (PF) 50 mcg Route: IVP; Site: right forearm; hb 17:30 Follow up: Response: No adverse reaction hb 18:27 Drug: Lasix 40 mg Route: IVP; Site: right antecubital; hb Disposition: 08/10/18 17:39 Hospitalization ordered by Nimesh Barreto for Inpatient Admission. Preliminary diagnosis are Acute Anasarca, dyspnea, CHF exacerbation, renal insufficiency. - Bed requested for Telemetry/MedSurg (Inpatient). - Status is Inpatient Admission. bb - Condition is Stable. - Problem is an acute exacerbation. - Symptoms have improved. UTI on Admission? No Signatures: Dispatcher [employer] EDEdith Wheat, RN RN Veronika Ireland RN RN dw Ballard, Brenda, RN RN bb Baxter, Heather, RN RN Franky Joy MD MD wa Corrections: (The following items were deleted from the chart) 18:14 17:39 Hospitalization Ordered by Nimesh Barreto DO for Inpatient Admission. Preliminary dw diagnosis is Acute Anasarca; dyspnea; CHF exacerbation; renal insufficiency. Bed requested for Telemetry/MedSurg (Inpatient). Status is Inpatient Admission. Condition is Stable. Problem is an acute exacerbation. Symptoms have improved. UTI on Admission? No. wa 19:40 18:14 08/10/2018 17:39 Hospitalization Ordered by Nimesh Barreto DO for Inpatient bb Admission. Preliminary diagnosis is Acute Anasarca; dyspnea; CHF exacerbation; renal insufficiency. Bed requested for Telemetry/MedSurg (Inpatient). Status is Inpatient Admission. Condition is Stable. Problem is an acute exacerbation. Symptoms have improved. UTI on Admission? No. dw
--- NOTE | 2018-08-10 17:40 | ER ---
Nurse's Notes [facility] Name: Christy Priest Age: 63 yrs Sex: Female : 1955 Arrival Date: 08/10/2018 Time: 14:05 Bed 6 Private MD: Diagnosis: Acute Anasarca;dyspnea;CHF exacerbation;renal insufficiency Presentation: 08/10 14:11 Presenting complaint: Patient states: "I have about 37 pounds of fluids on me and its sv making it hard to breathe." Reports swelling all over. Has seen her PCP about this and she was given a fluid pill. Transition of care: patient was not received from another setting of care. Onset of symptoms is unknown. Care prior to arrival: None. 14:11 Method Of Arrival: Ambulatory sv 14:11 Acuity: DENNY 3 sv 15:49 Risk Assessment: Do you want to hurt yourself or someone else? Patient reports no hb desire to harm self or others. Initial Sepsis Screen: Does the patient meet any 2 criteria? No. Patient's initial sepsis screen is negative. Does the patient have a suspected source of infection? No. Patient's initial sepsis screen is negative. Triage Assessment: 14:11 General: Appears in no apparent distress. uncomfortable, well developed, Behavior is sv calm, cooperative, appropriate for age. Neuro: Level of Consciousness is awake, alert, obeys commands, Gait is steady. Respiratory: Respiratory effort is even, unlabored, Respiratory pattern is symmetrical, tachypnea. Historical: - Allergies: 14:13 Augmentin; sv 14:13 basil; sv 14:13 Morphine; sv 14:13 Nitroglycerin; sv 14:13 Tramadol HCl; sv 14:13 Trazodone; sv 14:13 Vancomycin; sv - Home Meds: 15:52 gabapentin Oral [Active]; Hydralazine Oral [Active]; insulin [Active]; Lasix Oral hb [Active]; Plavix Oral [Active]; - PMHx: 14:13 CHF; COPD; Diabetes - IDDM; ESRD; High Cholesterol; Hypertension; triple bypass; sv uterine cancer; - PSHx: 14:13 CABG; sv - Immunization history:: Adult Immunizations up to date. - Social history:: Smoking status: Patient/guardian denies using tobacco, Patient/guardian denies using alcohol, street drugs. - Family history:: not pertinent. - Ebola Screening: : No symptoms or risks identified at this time. - Hospitalizations: : No recent hospitalization is reported. Screenin:28 Abuse screen: Denies threats or abuse. Denies injuries from another. Nutritional hb screening: No deficits noted. Tuberculosis screening: No symptoms or risk factors identified. Fall Risk None identified. Assessment: 15:20 General: Appears in no apparent distress. Behavior is calm, cooperative. Pain: Pain hb currently is 8 out of 10 on a pain scale. Neuro: Level of Consciousness is awake, alert, obeys commands, Oriented to person, place, time, situation. Cardiovascular: Heart tones S1 S2 present Capillary refill < 3 seconds Patient's skin is warm and dry. Edema is 4+ to left leg and right leg pitting to left leg and right leg. Respiratory: Airway is patent Trachea midline Respiratory effort is even, unlabored, Respiratory pattern is regular, symmetrical, Breath sounds are diminished bilaterally. Breath sounds with wheezes. GI: Abdomen is distended, Bowel sounds present X 4 quads. Abd is soft and non tender X 4 quads. : No signs and/or symptoms were reported regarding the genitourinary system. EENT: No signs and/or symptoms were reported regarding the EENT system. Derm: Skin is thin, with poor turgor BLE pitting edema 4+. 16:01 Reassessment: ok to have ice chips per Dr. Joy. Small cup of ice provided as hb requested. 16:30 Reassessment: Patient appears in no apparent distress at this time. No changes from hb previously documented assessment. Patient and/or family updated on plan of care and expected duration. Pain level reassessed. Patient is alert, oriented x 3, equal unlabored respirations, skin warm/dry/pink. 17:30 Reassessment: Patient appears in no apparent distress at this time. No changes from hb previously documented assessment. Patient and/or family updated on plan of care and expected duration. Pain level reassessed. Patient is alert, oriented x 3, equal unlabored respirations, skin warm/dry/pink. 18:30 Reassessment: Patient appears in no apparent distress at this time. Patient and/or family updated on plan of care and expected duration. Pain level reassessed. Patient is alert, oriented x 3, equal unlabored respirations, skin warm/dry/pink. 18:42 Reassessment: Attempted to call report to floor, receiving nurse unavailable at this hb time. 19:30 Reassessment: report called to receiving RN for room 209. bb Vital Signs: 14:13 Pulse 78; Resp 22; Temp 98.2; Pulse Ox 95% ; Weight 89.81 kg; Height 5 ft. 7 in. sv (170.18 cm); Pain 0/10; 14:38 BP 203 / 86; hb 15:00 BP 214 / 93; Pulse 76; Resp 20; Pulse Ox 97% on 2 lpm NC; hb 15:45 BP 213 / 98; Pulse 75; Resp 22; Pulse Ox 100% on Nebulizer Mask; hb 16:30 BP 208 / 95; Pulse 72; Resp 21; Pulse Ox 96% on 2 lpm NC; hb 17:30 BP 206 / 103; Pulse 73; Resp 22; Pulse Ox 94% on 2 lpm NC; hb 18:30 BP 197 / 103; Pulse 74; Resp 22; Pulse Ox 97% on 2 lpm NC; hb 14:13 Body Mass Index 31.01 (89.81 kg, 170.18 cm) sv ED Course: 14:05 Patient arrived in ED. mr 14:13 Triage completed. sv 14:14 Arm band placed on. sv 14:24 Franky Joy MD is Attending Physician. wa 14:27 Karma Gooden, GUILHERME is Primary Nurse. hb 15:32 Inserted saline lock: 20 gauge in right forearm, using aseptic technique. Blood hb collected. 15:36 XRAY CXR (1 view) In Process Unspecified. EDMS 15:41 EKG done, by retail merchandiser technician. reviewed by Franky Joy MD. sm3 15:48 Patient has correct armband on for positive identification. Placed in gown. Bed in low hb position. Call light in reach. Side rails up X2. 17:38 Nimesh Barreto DO is Hospitalizing Provider. wa 19:40 No provider procedures requiring assistance completed. Patient admitted, IV remains in bb place. Administered Medications: 15:30 Drug: fentaNYL (PF) 50 mcg Route: IVP; Site: right forearm; hb 16:14 Follow up: Response: No adverse reaction hb 15:33 Drug: Xopenex 1.25 mg Route: Inhalation; hb 16:10 Follow up: Response: No adverse reaction hb 16:33 Drug: Nitroglycerin 0.4 mg Route: Sublingual; hb 17:30 Follow up: Response: No adverse reaction hb 16:41 Drug: fentaNYL (PF) 50 mcg Route: IVP; Site: right forearm; hb 17:30 Follow up: Response: No adverse reaction hb 18:27 Drug: Lasix 40 mg Route: IVP; Site: right antecubital; hb Outcome: 17:39 Decision to Hospitalize by Provider. tx 19:40 Admitted to Tele accompanied by tech, via stretcher, room 209, with chart, Report bb called to receiving RN 19:40 Condition: stable 19:40 Instructed on the need for admit. 19:40 Patient left the ED. bb Signatures: Dispatcher [employer] EDEdith Wheat RN Anahi Blanco mr Jud Mayes RN RN bb Baxter, Heather, RN RN Franky Joy MD MD wa Montes, Shakira 3 Corrections: (The following items were deleted from the chart) 14:18 14:13 Pulse 78bpm; Resp 22bpm; Pulse Ox 95%; Temp 98.2F; 89.81 kg; Height 5 ft. 7 in.; sv BMI: 31.0; Pain 0/10; sv 15:54 15:30 BP 213 / 98; Pulse 75bpm; Resp 22bpm; Pulse Ox 100% Nebulizer Mask; hb hb
--- NOTE | 2018-08-10 18:15 | P.HP ---
Certification for Inpatient Patient admitted to: Inpatient With expected LOS: >2 Midnights Patient will require the following post-hospital care: None Practitioner: I am a practitioner with admitting privileges, knowledge of patient current condition, hospital course, and medical plan of care. Services: Services provided to patient in accordance with Admission requirements found in Title 42 Section 412.3 of the Code of Federal Regulations Patient History Date of Service: 08/10/18 Primary Care Provider: [facility]; Nephrology-Dr. Eng Reason for admission: Shortness of breath, edema History of Present Illness: 63-year-old female presented to the emergency room with increasing shortness of breath and edema to the lower extremities and abdomen. Patient with underlying history of chronic renal disease, stage IV, hypertension , chronic CHF, COPD, hypertension, diabetes, and CAD. Patient reports increasing edema to the lower extremities greater than 2+. She also reports increasing edema to the abdominal area and thigh region. Patient has been getting more short of breath. She has been trying to control her edema with medication without any success. She came to the ER for further evaluation. Patient denied any fever, chills. She denied any urinary complaints. In the ER patient evaluated. X-ray showed mild to moderate CHF. BNP elevated. White count 5.9, hemoglobin 11.9. BUN of 56, creatinine 2.5 with a GFR of 19. Glucose 173. Patient was given IV Lasix in the emergency room. She was admitted for further evaluation and treatment. When I saw the patient in ER, patient had anasarca. Patient without any significant respiratory distress. Allergies morphine Allergy (Severe, Verified 07/29/17 03:02) Anaphylaxis amoxicillin [From Augmentin] Allergy (Verified 07/29/17 03:02) Unknown basil Allergy (Verified 07/29/17 03:02) Unknown clavulanic acid [From Augmentin] Allergy (Verified 07/29/17 03:02) Unknown vancomycin Allergy (Verified 07/29/17 03:02) Unknown nitroglycerin Adverse Reaction (Mild, Verified 07/29/17 03:02) Nausea/Vomiting tramadol Adverse Reaction (Mild, Verified 07/29/17 03:02) Nausea/Vomiting Tramadol HCl Allergy (Uncoded 07/29/17 03:02) Unknown Home medications list reviewed: Yes Home Medications: Acetaminophen with Codeine [Acetaminophen-Cod #3 Tablet] 1 tab PO BIDP PRN 05/26 Atorvastatin Calcium [Lipitor] 40 mg PO DAILY 05/26/18 Carvedilol 12.5 mg PO BID 05/26/18 Clopidogrel Bisulfate [Plavix*] 75 mg PO DAILY 05/26/18 Ferrous Sulfate 325 mg PO BID 05/26/18 Fluticasone [Flovent Hfa 110*] 2 puff IH DAILYPRN PRN 05/26/18 Gabapentin 100 mg PO TID* 05/26/18 Hydralazine [Apresoline*] 50 mg PO TID 05/26/18 Insulin Detemir [Levemir Flextouch] 10 unit SQ DAILY 05/26/18 Isosorbide Mononitrate [Isosorbide Mononitrate ER] 30 mg PO DAILY 05/26/18 Nifedipine [Nifedipine ER] 60 mg PO DAILY 05/26/18 Trazodone [Desyrel*] 50 mg PO BEDTIME 05/26/18 buPROPion HCl [Bupropion HCl] 75 mg PO DAILY 05/26/18 Furosemide [Lasix] 40 mg PO BIDL #60 tab 05/31/18 - Past Medical/Surgical History Diabetic: Yes -: COPD, former tobacco use -: Hypertension -: CAD, CABG x4 vessels -: Diabetes mellitus type 2, insulin-dependent -: Chronic diastolic CHF -: Uterine cancer status post hysterectomy -: Obstructive sleep apnea -: GERD -: Hyperlipidemia -: Chronic renal disease, stage IV -: Iron deficiency anemia -: Obesity -: Rectal surgery -: Hysterectomy -: Cholecystectomy -: Gastric surgery -: Appendectomy -: CABG x4 vessel -: Femoral popliteal bypass -: Left great toe amputation Psychosocial/ Personal History: The patient is a . Her son lives with her. She has 3 children. - Family History Father -: Heart disease, Hypertension, Stroke, Cancer Mother -: GI disease Sister -: Lung disease, Diabetes Brother -: Heart disease, Hypertension, Stroke, Cancer Notes: - Social History Smoking Status: Former smoker Alcohol use: No CD- Drugs: No Caffeine use: Yes Place of Residence: Home Review of Systems General: As per HPI Eyes: Unremarkable ENT: Unremarkable Respiratory: Shortness of Breath, SOB with Excertion, As per HPI Cardiovascular: Edema, As per HPI Gastrointestinal: Unremarkable Genitourinary: Unremarkable Musculoskeletal: Unremarkable Integumentary: As per HPI Neurological: Unremarkable Lymphatics: Unremarkable Physical Examination - Physical Exam General: Alert, In no apparent distress, Oriented x3, Cooperative HEENT: Atraumatic, Normocephalic, Mucous membr. moist/pink Neck: Supple, No Thyromegaly Respiratory: Crackles/rales (To the bases bilateral) Cardiovascular: Normal pulses, Regular rate/rhythm Gastrointestinal: Normal bowel sounds, Soft and benign, Non-distended, Other ( Anasarca up to the abdominal region noted) Integumentary: No erythema, No warmth, No cyanosis, Tenderness/swelling ( Greater than 2+ pitting edema to the lower extremities) Neurological: Normal speech, Normal strength at 5/5 x4 extr, Normal tone, Normal affect - Studies Laboratory Data (last 24 hrs) 08/10/18 15:36: PT 13.5 H, INR 1.15, APTT 34.0 08/10/18 15:36: WBC 5.9, Hgb 11.9 L, Hct 37.5, Plt Count 215 08/10/18 15:36: Sodium 139, Potassium 3.9, BUN 56 H, Creatinine 2.55 H, Glucose 173 H, Magnesium 2.0, Total Bilirubin 0.4, AST 29, ALT 26, Alkaline Phosphatase 231 H, Lipase 177 Assessment and Plan - Plan Impression: Shortness of breath with anasarca secondary to acute on chronic diastolic CHF Acute on chronic renal disease, stage 4 Hypertension Diabetes mellitus type 2, insulin-dependent CAD with prior CABG Hyperlipidemia COPD Obstructive sleep apnea Former tobacco use Plan: Shortness of breath with anasarca secondary to acute on chronic diastolic CHF: Patient will be admitted for IV diuresis. Will start IV Lasix 80 mg b.i.d.. Will continue with a 1500 cc per day fluid restriction and low-salt diet. Will continue to monitor and reassess. Monitor daily weights. Recheck lab in the morning. Recheck chest x-ray. Will wean off oxygen to maintain sats above 90% . Nephrology has been consulted to further evaluate. Anticipate discharge in the next 48-72 hr. Acute on chronic renal disease, stage 4: Patient with chronic renal disease. Will consult Nephrology. Continue with diuretic therapy. Will make adjustments to medication. Hypertension: Restart home medication including carvedilol, hydralazine, nifedipine. Continue to monitor and address and adjust medication. Diabetes mellitus type 2, insulin-dependent: Will start basal insulin. Will continue with a sliding scale. CAD with prior CABG: Restart aspirin and Plavix. Hyperlipidemia: Restart Lipitor COPD: Continue with COPD medication. Maintain sats above 90%. Obstructive sleep apnea: Will check to see the patient uses CPAP at night. If so patient can continue with CPAP Former tobacco use: Continue with nicotine patch Discharge Plan: Home Plan to discharge in: 72 Hours - Advance Directives Does patient have a Living Will: No Does patient have a Durable POA for Healthcare: Yes - Code Status/Comfort Care Code Status Assessed: Yes (Patient is full code.) Time Spent Managing Pts Care (In Minutes): 55
[2018-08-10] MEDS ORDERED: FUROSEMIDE 40 MG/4 ML VIAL ONE (18:40)
--- NOTE | 2018-08-10 19:11 | EKG ---
Test Date: 2018-08-10 Test Time: 15:41:52 Chicken Stuffer: CYNTHIA MEASUREMENT RESULTS: Intervals: Rate: 74 [place]: 200 QRSD: 108 QT: 438 QTc: 486 [place]: P: 87 [place]: 200 QRS: 129 T: 109 INTERPRETIVE STATEMENTS: Normal sinus rhythm Right axis deviation Anterior infarct, age undetermined Abnormal ECG Compared to ECG 03/16/2018 16:37:56 Myocardial infarct finding now present T-wave abnormality no longer present Possible ischemia no longer present Prolonged QT interval no longer present Electronically Signed On 08-10-18 19:09:51 CDT by Alvaro Go
[2018-08-10 19:56] VITALS: BMI 31.0
[2018-08-10] MEDS ORDERED: GLUCAGON 1 MG/VIAL IM PRN (19:56)
[2018-08-10] MEDS ORDERED: ALBUTEROL 2.5 MG/3 ML NEB SOL NEB PRN (19:56)
[2018-08-10] MEDS ORDERED: D50W 25 GM/50 ML SYRINGE IV PRN (19:56)
[2018-08-10] MEDS ORDERED: IPRATROPIUM BROM 0.5MG/2.5ML NEB PRN (19:56)
[2018-08-10] MEDS ORDERED: ACETAMINOPHEN 500 MG TAB PO PRN (19:56)
[2018-08-10] MEDS ORDERED: ONDANSETRON 4 MG/2 ML VIAL IV PRN (19:56)
[2018-08-10] MEDS: ARFORMOTEROL TARTRATE 15 MCG/2 ML VIAL.NEB NEB SCH (20:00)
[2018-08-10 20:39] LABS: Urine Appearance CLEAR; Urine Bilirubin NEGATIVE (NEG); Urine Blood NEGATIVE (NEG); Urine Color YELLOW; Urine Glucose NEGATIVE (NEG); Urine Protein 2+ (NEG); Urine Urobilinogen 0.2 mg/dL (0.2-1.0)
[2018-08-10 20:43] LABS: Urine Microscopic Reflex ORDER UMIC
[2018-08-10] MEDS: FERROUS SULFATE 325 MG TAB PO SCH (20:59)
[2018-08-10] MEDS: ATORVASTATIN 40 MG TAB PO SCH (20:59)
[2018-08-10] MEDS: INSULIN GLARGINE 100 UNITS/ML SQ SCH (20:59)
[2018-08-10] MEDS: INSULIN -REGULAR HUMAN 50 UNIT/0.5 ML ML SQ SCH (21:00)
[2018-08-10] MEDS ORDERED: HYDRALAZINE HCL 25 MG TABLET PO SCH (21:00)
[2018-08-10 21:18] LABS: Urine Bacteria <20 /HPF (<20); Urine Culture Reflex Order NOT NEEDED; Urine RBC <5 /HPF (NONE SEEN)
[2018-08-10] MEDS: TRAZODONE 50 MG TABLET PO PRN (22:26)
[2018-08-11 05:52] LABS: Absolute Monocytes 0.4 K/uL (0.1-1.3); Absolute Neutrophil 3.6 K/uL (1.8-8.0); Basophils % 1.3 % (0-1.3); Eosinophils % 2.7 % (0-4.4); Hematocrit 33.9 % (36.0-45.0); Lymphocytes % 32.2 % (15.3-44.8); MPV 7.9 fL (7.6-11.3); Monocytes % 6.1 % (3.3-12.3); RBC Red Blood Cell Count 4.04 M/uL (3.86-4.86)
[2018-08-11] MEDS: CARVEDILOL 12.5 MG TAB PO SCH ×2 (06:11→17:12)
[2018-08-11] MEDS: NIFEDIPINE XL 60 MG TABLET PO SCH (06:12)
[2018-08-11 06:14] LABS: Potassium 3.8 mmol/L (3.5-5.1)
[2018-08-11] MEDS: ARFORMOTEROL TARTRATE 15 MCG/2 ML VIAL.NEB NEB SCH ×2 (07:44→20:00)
[2018-08-11] MEDS ORDERED: POTASSIUM CL SA 10 MEQ TAB PO ONE (09:00)
[2018-08-11] MEDS: BUPROPION HCL 75 MG PO SCH (09:00)
[2018-08-11] MEDS: FERROUS SULFATE 325 MG TAB PO SCH ×3 (09:00→21:00)
[2018-08-11] MEDS ORDERED: FUROSEMIDE 40 MG/4 ML VIAL IV SCH (09:00)
[2018-08-11] MEDS: ENOXAPARIN 30 MG/0.3 ML SQ SCH (09:18)
[2018-08-11] MEDS: NICOTINE 21 MG/PAT TD SCH (09:18)
[2018-08-11] MEDS: ALLOPURINOL 100 MG TAB PO SCH (09:19)
[2018-08-11] MEDS: ASPIRIN EC 81 MG TAB PO SCH (09:19)
[2018-08-11] MEDS: CLOPIDOGREL 75 MG TABLET PO SCH (09:19)
[2018-08-11] MEDS: ISOSORBIDE MONO SR 30 MG TAB PO SCH (09:19)
[2018-08-11] MEDS: HYDRALAZINE HCL 25 MG TABLET PO SCH ×3 (09:21→21:21)
[2018-08-11] MEDS: CODEINE 30MG/APAP 300MG TAB PO PRN ×3 (09:25→21:29)
[2018-08-11] MEDS: GABAPENTIN 100 MG CAP PO SCH ×2 (09:42→14:25)
[2018-08-11] MEDS: INSULIN -REGULAR HUMAN 50 UNIT/0.5 ML ML SQ SCH ×4 (09:43→21:00)
--- NOTE | 2018-08-11 10:52 | P.PN ---
Subjective Date of Service: 08/11/18 Primary Care Provider: [facility]; Nephrology-Dr. Eng Chief Complaint: Shortness of breath, edema Subjective: Improving (Edema to the lower extremities improved) Physical Examination - Vital Signs Temperature: 97 F Blood Pressure: 185/80 Pulse: 68 Respirations: 18 Pulse Ox (%): 99 - Physical Exam General: Alert, In no apparent distress, Oriented x3, Cooperative HEENT: Atraumatic Neck: Supple Respiratory: Clear to auscultation bilaterally, Normal air movement Cardiovascular: Normal pulses, Regular rate/rhythm Gastrointestinal: Normal bowel sounds, Soft and benign, Non-distended, Other ( Less anasarca noted) Integumentary: Tenderness/swelling (Improved edema to the lower extremities) Neurological: Normal speech, Normal strength at 5/5 x4 extr, Normal tone, Normal affect - Studies Laboratory Data (last 24 hrs) 08/10/18 15:36: PT 13.5 H, INR 1.15, APTT 34.0 08/10/18 15:36: WBC 5.9, Hgb 11.9 L, Hct 37.5, Plt Count 215 08/10/18 15:36: Sodium 139, Potassium 3.9, BUN 56 H, Creatinine 2.55 H, Glucose 173 H, Magnesium 2.0, Total Bilirubin 0.4, AST 29, ALT 26, Alkaline Phosphatase 231 H, Lipase 177 Medications List Reviewed: Yes Assessment & Plan Discharge Plan: Home Plan to discharge in: 24 Hours Physician Review Additional Text: Impression: Shortness of breath with anasarca secondary to acute on chronic diastolic CHF Acute on chronic renal disease, stage 4 Hypertension Diabetes mellitus type 2, insulin-dependent CAD with prior CABG Hyperlipidemia COPD Obstructive sleep apnea Former tobacco use Plan: Shortness of breath with anasarca secondary to acute on chronic diastolic CHF: Patient has responded well to IV diuresis. Continue with IV Lasix. Will teach on 1500 cc per day fluid restriction and low-salt diet. Will continue to wean off oxygen. Maintain sats above 90%. Patient may require oxygen at discharge. Await further recommendations from nephrology. Anticipate discharge in the next 24 hr. Acute on chronic renal disease, stage 4: Patient with chronic renal disease. Continue as above. Will discuss with nephrology. Hypertension: Continue with home medication including carvedilol, hydralazine, nifedipine. Will adjust hydralazine for better blood pressure control. Continue to monitor and address and adjust medication. Diabetes mellitus type 2, insulin-dependent: Continue with basal insulin. Will monitor and adjust appropriately. Will continue with a sliding scale. CAD with prior CABG: Continue aspirin and Plavix. Hyperlipidemia: Continue Lipitor COPD: Continue with COPD medication. Maintain sats above 90%. Obstructive sleep apnea: Will check to see the patient uses CPAP at night. If so patient can continue with CPAP Former tobacco use: Continue with nicotine patch Time Spent Managing Pts Care (In Minutes): 55
--- NOTE | 2018-08-11 11:02 | RAD REPORT ---
EXAM DESCRIPTION: RAD - Chest Pa And Lat (2 Views) - 08/11/2018 10:29 am CLINICAL HISTORY: CHF COMPARISON: August 10 TECHNIQUE: PA and lateral views of the chest were obtained. FINDINGS: The lungs are right base parenchymal opacification and pleural effusion remain. Right makenna diaphragm remains obscured. Interstitial markings remain prominent. Heart size is upper normal but improved from prior study. Vasculature has decreased in prominence. No pneumothorax. No acute bony fi nding noted. No aortic abnormality. IMPRESSION: CHF/volume overload findings have shown further improvement. Pleural effusion and right base opacification could be pneumonia, atelectasis or a combination.
--- NOTE | 2018-08-11 19:55 | CON ---
Date of Consultation: 08/11/2018 Reason For Consultation: Elevated BUN and creatinine, fluid over volume. History Of Present Illness: This is a pleasant 63-year-old female, well known to me from previous ad mission and from the office with significant past medical history of hypertension; diabetes complicat ed with retinopathy, neuropathy, and nephropathy; hyperlipidemia; coronary artery disease, status pos t cardiac cath back in 2014, status post PTCA complicated with congestive heart failure; chronic kidn ey disease stage 4. Follow up with Dr. Posey. Baseline creatinine 2.4-2.6, GFR around 20 back in May, congestive heart failure, diastolic dysfunction. The patient was in her regular state of he alth until the last couple of weeks when she started having more fluid retention, increased leg swell ing and edema. For that reason, she was reported to the hospital, found to have elevated BUN and cre atinine, anasarca, and congestive heart failure exacerbation. For that reason, we have been consulte d. The patient denied taking any nonsteroidal. The patient according to her, she had been compliant with her IV fluid and salt restriction and she had been compliant with her oral diuresis even though that she said she occasionally takes Bumex or torsemide or Lasix. So, the compliant tissue is under question. The patient denied taking any nonsteroidal. The patient is compliant with fluid restricti on according to her. No fever, no chills, no recent exposure to contrast or change in her medication . Past Medical History: Includes: 1.Hypertension. 2.Diabetes complicated with neuropathy and nephropathy. 3.Coronary artery disease status post catheterization, status post PTCA complicated with congestive heart failure, diastolic dysfunction. 4.Chronic kidney disease stage 4. 5.Baseline creatinine 2.6, GFR of May 2018. Allergies: TO MORPHINE, CEFEPIME, TRAMADOL, AND ZOFRAN. Social History: Denied smoking. Denied drinking. Denied drug abuse. Family History: Positive for diabetes and hypertension. Review of Systems: Head and Neck: No red eye. No ear pain. GI: No nausea, no vomiting. : No polyuria, no dysuria, no hematuria. Shank Threader: No vaginal discharge. Respiratory: Has shortness of breath. Cardiovascular: Has leg swelling. Endocrine: No polydipsia. Skin: No rash. Neuro: Has neuropathy. Musculoskeletal: Low back pain. Physical Examination: Vital Signs: When I saw the patient, blood pressure 178/77, pulse of 88. Chest: Crackles, bilateral base. Heart: S1, S2. Regular. Systolic murmur. Abdomen: Soft, nontender. Extremities: +1 edema. Neurological: Alert and oriented x3. No focal. Home Medications: Include trazodone, nifedipine 60, isosorbide, hydralazine 50 t.i.d., gabapentin, L asix as needed, carvedilol, Bumex 1 mg b.i.d., atorvastatin, allopurinol. Current medications in the hospital include allopurinol, aspirin, atorvastatin, carvedilol 12.5, Plav ix, Lasix 80 b.i.d., gabapentin, insulin, and nicotine patch, and trazodone. Assessment And Plan: 1.Chronic kidney disease stage 4 secondary to cardiorenal, diabetes nephropathy on the over volume s lizzy. I am going to go ahead and increase the Lasix to 3 times a day. We will continue to monitor th e patient. 2.Hypertension, not controlled. We will utilize the blood pressure for more diuresis. We will incr ease Lasix and I am going to go ahead and increase her hydralazine to 100 mg t.i.d. and we will follo w up the patient. 3.Diabetes as by Primary. 4.Congestive heart failure with exacerbation. We going to go ahead and continue aggressive diuresis for the patient. 5.Gout. Continue allopurinol. Thank you Dr. Barreto for allowing us to participate in the care of your patient. GAMA Voice ID: [id number] Report ID: [id number]
[2018-08-11] MEDS ORDERED: GABAPENTIN 300 MG CAP PO SCH (21:00)
[2018-08-11] MEDS: ATORVASTATIN 40 MG TAB PO SCH (21:15)
[2018-08-11] MEDS: INSULIN GLARGINE 100 UNITS/ML SQ SCH (21:15)
[2018-08-11] MEDS: FUROSEMIDE 40 MG/4 ML VIAL IV SCH (21:16)
[2018-08-11] MEDS: TRAZODONE 50 MG TABLET PO PRN (22:53)
[2018-08-12] MEDS: CARVEDILOL 12.5 MG TAB PO SCH (05:43)
[2018-08-12 06:09] LABS: Absolute Lymphocytes (CBC) 2.1 K/uL (0.7-4.9); Absolute Monocytes 0.4 K/uL (0.1-1.3); Absolute Neutrophil 3.4 K/uL (1.8-8.0); Basophils % 1.2 % (0-1.3); Hematocrit 33.2 % (36.0-45.0); Lymphocytes % 34.1 % (15.3-44.8); MPV 8.1 fL (7.6-11.3); Monocytes % 6.9 % (3.3-12.3)
[2018-08-12 06:22] LABS: Magnesium 1.9 mg/dL (1.8-2.4); Potassium 4.9 mmol/L (3.5-5.1)
[2018-08-12] MEDS: INSULIN -REGULAR HUMAN 50 UNIT/0.5 ML ML SQ SCH (07:30)
[2018-08-12] MEDS: ARFORMOTEROL TARTRATE 15 MCG/2 ML VIAL.NEB NEB SCH (08:40)
[2018-08-12] MEDS: CLOPIDOGREL 75 MG TABLET PO SCH (08:58)
[2018-08-12] MEDS: FERROUS SULFATE 325 MG TAB PO SCH ×2 (08:58→09:00)
[2018-08-12] MEDS: BUPROPION HCL 75 MG PO SCH (08:58)
[2018-08-12] MEDS: FUROSEMIDE 40 MG/4 ML VIAL IV SCH (08:58)
[2018-08-12] MEDS: HYDRALAZINE HCL 25 MG TABLET PO SCH (08:59)
[2018-08-12] MEDS: GABAPENTIN 100 MG CAP PO SCH (08:59)
[2018-08-12] MEDS: ALLOPURINOL 100 MG TAB PO SCH (08:59)
[2018-08-12] MEDS: ISOSORBIDE MONO SR 30 MG TAB PO SCH (08:59)
[2018-08-12] MEDS: ENOXAPARIN 30 MG/0.3 ML SQ SCH (09:00)
[2018-08-12] MEDS: NIFEDIPINE XL 60 MG TABLET PO SCH (09:00)
[2018-08-12] MEDS: ASPIRIN EC 81 MG TAB PO SCH (09:00)
[2018-08-12] MEDS: NICOTINE 21 MG/PAT TD SCH (09:00)
[2018-08-12 09:01] VITALS: BP 171/81
--- NOTE | 2018-08-12 09:03 | P.DS ---
Admission Date: 08/10/18 Discharge Date: 08/12/18 Primary Care Provider: [facility]; Nephrology-Dr. Eng Disposition: ROUTINE DISCHARGE Discharge Condition: GOOD Reason for Admission: Shortness of breath, edema Consultations: Nephrology-Dr. Fernando Procedures: CXR: COMPARISON: Chest Pa And Lat (2 Views) dated 05/27/2018; Chest Pa And Lat (2 Views) dated 05/26/2018; Chest Pa And Lat (2 Views) dated 03/18/2018; Chest Single View dated 03/16/2018 FINDINGS: Portable technique limits examination quality. Mild interstitial pulmonary edema seen. The heart is significantly enlarged with changes of a prior CABG seen. Small to moderate right pleural effusion. IMPRESSION: Mild to moderate CHF. Follow up CXR: COMPARISON: August 10 TECHNIQUE: PA and lateral views of the chest were obtained. FINDINGS: The lungs are right base parenchymal opacification and pleural effusion remain. Right hemidiaphragm remains obscured. Interstitial markings remain prominent. Heart size is upper normal but improved from prior study. Vasculature has decreased in prominence. No pneumothorax. No acute bony finding noted. No aortic abnormality. IMPRESSION: CHF/volume overload findings have shown further improvement. Pleural effusion and right base opacification could be pneumonia, atelectasis or a combination. Medical Problem List: Shortness of breath with anasarca secondary to acute on chronic diastolic CHF Acute on chronic renal disease, stage 4 Hypertension Diabetes mellitus type 2, insulin-dependent CAD with prior CABG Hyperlipidemia COPD Depression Diabetic neuropathy with chronic pain Obstructive sleep apnea Former tobacco use Obesity, BMI 31 Brief History of Present Illness: 63-year-old female presented to the emergency room with increasing shortness of breath and edema to the lower extremities and abdomen. Patient with underlying history of chronic renal disease, stage IV, hypertension , chronic CHF, COPD, hypertension, diabetes, and CAD. Patient reports increasing edema to the lower extremities greater than 2+. She also reports increasing edema to the abdominal area and thigh region. Patient has been getting more short of breath. She has been trying to control her edema with medication without any success. She came to the ER for further evaluation. Patient denied any fever, chills. She denied any urinary complaints. In the ER patient evaluated. X-ray showed mild to moderate CHF. BNP elevated. White count 5.9, hemoglobin 11.9. BUN of 56, creatinine 2.5 with a GFR of 19. Glucose 173. Patient was given IV Lasix in the emergency room. She was admitted for further evaluation and treatment. When I saw the patient in ER, patient had anasarca. Patient without any significant respiratory distress. Hospital Course: Patient presented with shortness of breath with anasarca secondary to acute on chronic diastolic CHF. Patient was admitted for further evaluation and treatment. Patient received IV Lasix with improvement. Patient taught on fluid restriction and low-salt diet. Patient improved. At discharge patient did not require any need for oxygen. Edema improved. Nephrology was consulted to further evaluate. Adjustments in medication was made. At discharge patient will continue with a 1500 cc per day fluid restriction and low-salt diet. She is to monitor her weight daily. If her weight increases by more than 5 lb she is to contact her PCP or nephrology for further recommendation. At discharge she will continue with Bumex 2 mg 1 pill twice daily. Patient will also be given Lasix 40 mg daily to be use as needed if with increasing edema and shortness of breath. She is to follow up with her PCP and nephrology for further evaluation and possible need for adjustment in medication. Education on CHF will be provided. Patient with acute on chronic renal disease, stage IV. Nephrology was consulted. Nephrology made adjustments to her medication including her diuretic therapy. Medications to be continued as above. Patient will continue with allopurinol 100 mg daily. Recommend no further use of nonsteroidal anti- inflammatories. Future medications will need to be renally dosed. Recommend to follow up with Nephrology in 2-4 weeks to move follow up this hospitalization. Recommend to recheck lab-BMP in 2-4 weeks to monitor her progress. Patient with hypertension. Patient takes multiple medications. Adjustment in hydralazine was made for better blood pressure control. At discharge she will continue with carvedilol 12.5 mg 1 pill twice daily, nifedipine XL 60 mg once daily, and hydralazine 100 mg daily. Recommend to maintain blood pressures less 150/80. Further adjustment can be done by her PCP. Patient with diabetes type 2, insulin dependent. This has remained stable. At discharge she will continue with Levemir 10 units subcu twice daily. Recommend to maintain blood sugars less 140 fasting and less than 200 after meals. Further adjustment can be done by her PCP. Patient with depression. At discharge she will continue with Wellbutrin 75 mg daily and trazodone 50 mg at bedtime. Patient with CAD with prior CABG. At discharge she will continue with aspirin 81 mg daily and Plavix 75 mg daily. Recommend a follow up with cardiology as directed. Patient has hyperlipidemia. At discharge she will continue with Lipitor 40 mg daily. Patient with iron deficiency anemia. Recommend to continue iron 325 mg 1 pill twice daily. This can be further monitored by her PCP. Patient with diabetic neuropathy and chronic pain. Patient may continue with gabapentin 300 mg twice daily and 300 mg at bedtime. Patient also takes Tylenol #3. A limited supply of medication will be provided. Patient may benefit with pain management referral as an outpatient. This can be done with the help of her PCP. Patient with COPD. Patient will continue with Advair 1 puff twice daily and Pro air 2 puffs 3 times a day as needed for shortness of breath. Recommend to follow up with pulmonology as an outpatient to further monitor. Patient likely with underlying obstructive sleep apnea. Recommend to follow up with pulmonology to further evaluate and treat. Patient will likely require sleep study to further assess. Tobacco cessation education will be provided. Vital Signs/Physical Exam: Temp Pulse Resp BP Pulse Ox 97.4 F 63 15 152/69 H 94 08/12/18 04:00 08/12/18 05:43 08/12/18 04:00 08/12/18 05:43 08/12/18 04:00 General: Alert, In no apparent distress, Oriented x3, Cooperative HEENT: Atraumatic Neck: Supple Respiratory: Clear to auscultation bilaterally, Normal air movement Cardiovascular: Normal pulses, Regular rate/rhythm Gastrointestinal: Normal bowel sounds, Soft and benign, Non-distended, No tenderness, No masses, No rebound, No guarding Musculoskeletal: No erythema, No tenderness, No warmth Integumentary: No erythema, No warmth, No cyanosis, Tenderness/swelling ( Swelling to the lower extremities significantly improved. 1 to 2+ noted. no significant anasarca noted. ) Neurological: Normal speech, Normal strength at 5/5 x4 extr, Normal tone, Normal affect Laboratory Data at Discharge: WBC 6.1 K/uL (4.3-10.9) 08/12/18 05:26 Hgb 10.6 g/dL (12.0-15.0) L 08/12/18 05:26 Hct 33.2 % (36.0-45.0) L 08/12/18 05:26 Plt Count 206 K/uL (152-406) 08/12/18 05:26 PT 13.5 SECONDS (9.5-12.5) H 08/10/18 15:36 INR 1.15 08/10/18 15:36 APTT 34.0 SECONDS (24.3-36.9) 08/10/18 15:36 Sodium 143 mmol/L (136-145) 08/12/18 05:26 Potassium 4.9 mmol/L (3.5-5.1) 08/12/18 05:26 BUN 54 mg/dL (7-18) H 08/12/18 05:26 Creatinine 2.30 mg/dL (0.55-1.3) H 08/12/18 05:26 Glucose 119 mg/dL (74-106) H 08/12/18 05:26 Magnesium 1.9 mg/dL (1.8-2.4) 08/12/18 05:26 Total Bilirubin 0.4 mg/dL (0.2-1.0) 08/10/18 15:36 AST 29 U/L (15-37) 08/10/18 15:36 ALT 26 U/L (12-78) 08/10/18 15:36 Alkaline Phosphatase 231 U/L (45-117) H 08/10/18 15:36 Lipase 177 U/L (73-393) 08/10/18 15:36 Home Medications: Allopurinol [Zyloprim*] 1 tab PO DAILY 08/10/18 Aspirin 1 tab PO DAILY 08/10/18 Atorvastatin Calcium 40 mg PO DAILY 08/10/18 Bupropion HCl [Wellbutrin] 75 mg PO DAILY 08/10/18 Carvedilol [Coreg*] 12.5 mg PO BID 08/10/18 Clopidogrel Bisulfate [Plavix*] 75 mg PO DAILY 08/10/18 Ferrous Sulfate [Ferrous Sulfate*] 1 tab PO BID 08/10/18 Gabapentin 1 tab PO BID 08/10/18 Gabapentin 300 mg PO BEDTIME 08/10/18 Insulin Detemir [Levemir] 10 units SQ BID 08/10/18 Isosorbide Mononitrate [Isosorbide Mononitrate ER] 30 mg PO DAILY 08/10/18 Nifedipine [Procardia Xl] 60 mg PO DAILY 08/10/18 Trazodone [Desyrel*] 50 mg PO BEDTIME 08/10/18 Albuterol Sulfate [Proair Hfa] 2 puff IH TID PRN #1 hfa.aer.ad 08/12/18 Bumetanide [Bumex] 1 mg PO BID #60 tablet 08/12/18 Codeine/APAP [Tylenol #3*] 1 tab PO Q6H PRN #10 tab 08/12/18 Fluticasone/Salmeterol [Advair 250-50 Diskus] 1 each IH BID #1 blst.w.dev Furosemide [Lasix] 40 mg PO DAILY PRN #30 tab 08/12/18 Hydralazine HCl [Apresoline] 100 mg PO TID #90 tablet 08/12/18 New Medications: Albuterol Sulfate [Proair Hfa] 2 puff IH TID PRN #1 hfa.aer.ad PRN Reason: Shortness Of Breath Bumetanide [Bumex] 1 mg PO BID #60 tablet Codeine/APAP [Tylenol #3*] 1 tab PO Q6H PRN #10 tab PRN Reason: Pain Scale 2-4 (Mild) Fluticasone/Salmeterol [Advair 250-50 Diskus] 1 each IH BID #1 blst.w.dev Furosemide [Lasix] 40 mg PO DAILY PRN #30 tab PRN Reason: Shortness Of Breath Hydralazine HCl [Apresoline] 100 mg PO TID #90 tablet Patient Discharge Instructions: 1. Patient plans to establish care with a PCP to follow up her care. 2. Patient presented with shortness of breath with anasarca secondary to acute on chronic diastolic CHF. Patient was admitted for further evaluation and treatment. Patient received IV Lasix with improvement. Patient taught on fluid restriction and low-salt diet. Patient improved. At discharge patient did not require any need for oxygen. Edema improved. Nephrology was consulted to further evaluate. Adjustments in medication was made. At discharge patient will continue with a 1500 cc per day fluid restriction and low-salt diet. She is to monitor her weight daily. If her weight increases by more than 5 lb she is to contact her PCP or nephrology for further recommendation. At discharge she will continue with Bumex 2 mg 1 pill twice daily. Patient will also be given Lasix 40 mg daily to be use as needed if with increasing edema and shortness of breath. She is to follow up with her PCP and nephrology for further evaluation and possible need for adjustment in medication. Education on CHF will be provided. 3. Patient with acute on chronic renal disease, stage IV. Nephrology was consulted. Nephrology made adjustments to her medication including her diuretic therapy. Medications to be continued as above. Patient will continue with allopurinol 100 mg daily. Recommend no further use of nonsteroidal anti-inflammatories. Future medications will need to be renally dosed. Recommend to follow up with Nephrology in 2-4 weeks to move follow up this hospitalization. Recommend to recheck lab-BMP in 2-4 weeks to monitor her progress. 4. Patient with hypertension. Patient takes multiple medications. Adjustment in hydralazine was made for better blood pressure control. At discharge she will continue with carvedilol 12.5 mg 1 pill twice daily, nifedipine XL 60 mg once daily, and hydralazine 100 mg daily. Recommend to maintain blood pressures less 150/80. Further adjustment can be done by her PCP. 5. Patient with diabetes type 2, insulin dependent. This has remained stable. At discharge she will continue with Levemir 10 units subcu twice daily. Recommend to maintain blood sugars less 140 fasting and less than 200 after meals. Further adjustment can be done by her PCP. 6. Patient with depression. At discharge she will continue with Wellbutrin 75 mg daily and trazodone 50 mg at bedtime. 7. Patient with CAD with prior CABG. At discharge she will continue with aspirin 81 mg daily and Plavix 75 mg daily. Recommend a follow up with cardiology as directed. 8. Patient has hyperlipidemia. At discharge she will continue with Lipitor 40 mg daily. 9. Patient with iron deficiency anemia. Recommend to continue iron 325 mg 1 pill twice daily. This can be further monitored by her PCP. 10. Patient with diabetic neuropathy and chronic pain. Patient may continue with gabapentin 300 mg twice daily and 300 mg at bedtime. Patient also takes Tylenol #3. A limited supply of medication will be provided. Patient may benefit with pain management referral as an outpatient. This can be done with the help of her PCP. 11. Patient with COPD. Patient will continue with Advair 1 puff twice daily and Pro air 2 puffs 3 times a day as needed for shortness of breath. Recommend to follow up with pulmonology as an outpatient to further monitor. 12. Patient likely with underlying obstructive sleep apnea. Recommend to follow up with pulmonology to further evaluate and treat. Patient will likely require sleep study to further assess. 13. Tobacco cessation education will be provided. Diet: Renal Activity: Ad shira Time spent managing pt's care (in minutes): 55
[2018-08-12 09:19] VITALS: TEMP 97.6
[2018-08-12 10:37] VITALS: O2SAT 95
[2018-08-12] MEDS: CODEINE 30MG/APAP 300MG TAB PO PRN (11:27)
[2018-08-12] MEDS ORDERED: CARVEDILOL 25 MG TAB PO SCH (18:00)
--- NOTE | 2018-08-13 04:05 | PN ---
Date of Progress Note: 08/12/2018 Subjective: The patient was admitted with CHF exacerbation and anasarca. The patient was started on diuresis, her response was very good. Physical Examination: Vital Signs: Blood pressure 171/81, pulse 64. Chest: Crackles bilaterally. Heart: S1 and S2. Systolic murmur. Abdomen: Soft, nontender. Extremities: +1 edema. Laboratory Data: H and H, 10.6/33.2. Sodium 143, potassium 4.9, bicarb 29, BUN 64, creatinine 2.3, calcium 8.3. Current Medications: The patient is on: 1.Lasix 80 mg. 2.Allopurinol. 3.Atorvastatin. 4.Carvedilol 12.5. 5.Gabapentin. 6.Isosorbide. Assessment And Plan: 1.Chronic kidney disease stage 3/4 secondary to cardiorenal still over volume. I am going to add me tolazone. The patient is responding very well right now. We can switch the patient to Bumex 2 mg b. i.d. and we will follow up. 2.Hypertension, we will increase carvedilol to 25, switch to Bumex and add metolazone. 3.Hyperkalemia, resolved. GAMA Voice ID: [id number] Report ID: [id number]
[2018-08-13] MEDS ORDERED: NIFEDIPINE XL 90 MG TABLET PO SCH (09:00)
[2018-08-13] MEDS ORDERED: METOLAZONE 5 MG TABLET PO SCH (09:00)
== END 2018-08-12 11:48 | disposition home or self-care (01) | DRG 291 ==
LOC: ER 13:52 → ERHOLD 17:56 → 2ND 19:24
PROVIDERS: ADMIT Family Medicine; ATTEND Family Medicine
DX: I13.0 Hypertensive heart and chronic kidney disease with heart failure and stage 1 through stage 4 chronic kidney disease, or unspecified chronic kidney disease (principal); I50.33 Acute on chronic diastolic (congestive) heart failure; N18.4 Chronic kidney disease, stage 4 (severe); N17.9 Acute kidney failure, unspecified; E11.22 Type 2 diabetes mellitus with diabetic chronic kidney disease; I25.10 Atherosclerotic heart disease of native coronary artery without angina pectoris; E78.5 Hyperlipidemia, unspecified; J44.9 Chronic obstructive pulmonary disease, unspecified; G47.33 Obstructive sleep apnea (adult) (pediatric); E11.21 Type 2 diabetes mellitus with diabetic nephropathy; E11.40 Type 2 diabetes mellitus with diabetic neuropathy, unspecified; E11.319 Type 2 diabetes mellitus with unspecified diabetic retinopathy without macular edema; M10.9 Gout, unspecified; K21.9 Gastro-esophageal reflux disease without esophagitis; D50.9 Iron deficiency anemia, unspecified; E87.5 Hyperkalemia; E66.9 Obesity, unspecified; Z68.31 Body mass index [BMI] 31.0-31.9, adult; Z79.4 Long term (current) use of insulin; Z95.1 Presence of aortocoronary bypass graft; Z87.891 Personal history of nicotine dependence; Z88.1 Allergy status to other antibiotic agents; Z88.5 Allergy status to narcotic agent
CPT/HCPCS: 36415; 71045; 71046; 80048; 80076; 81003; 81015; 82962; 83690; 83735; 83880; 84484; 85025; 85610; 85730; 87040; 93005; 99285; J1650; J1940; J3010; J7605

== ENCOUNTER 2018-09-12 15:07 | Inpatient (IN) | payer MEDICAID ==
--- OUTSIDE RECORDS SUMMARY | 2018-09-12 15:09 | XMS REPORT | Clinical Summary ---
:1955 Author Organization [facility] [address] [place] [address] Care Team Providers Name Role Phone Adrianna [...] 04/21/2017 Medications Medication Sig Dispensed Refills Start Date End Date Status aspirin 81 MG EC Take 81 mg by mouth 0 Active tablet daily. albuterol-ipratropi Inhale 2 puffs by 4 g 0 06/01/2017 Active um (COMBIVENT mouth via inhaler RESPIMAT) 20-100 every 6 (six) mcg/actuation Mist hours. inhaler fluticasone Inhale 1 puff by 1 Inhaler 0 06/01/2017 Active (FLOVENT HFA) 110 mouth via inhaler 2 mcg/actuation (two) times daily. inhaler insulin detemir Inject 0.05 mLs (5 1 packet 0 06/01/2017 Active (LEVEMIR FLEXPEN) Units total) 100 unit/mL (3 mL) subcutaneously InPn injection every morning. pen needle, Use as directed to 100 each 0 06/01/2017 Active diabetic 29 gauge inject long and Ndle short acting insulin.. carvedilol (COREG) Take 1 tablet (12.5 60 tablet 0 07/07/2017 Active 12.5 MG tablet mg total) by mouth 2 (two) times daily. NIFEdipine (ADALAT Take 1 tablet (60 30 tablet 0 07/07/2017 Active CC) 60 MG 24 hr mg total) by mouth tablet daily Blood pressure. hydrALAZINE Take 1 tablet (50 120 tablet 0 07/07/2017 Active (APRESOLINE) 50 MG mg total) by mouth tablet every 8 (eight) hours Blood pressure. atorvastatin Take 1 tablet (40 30 tablet 0 07/07/2017 Active (LIPITOR) 40 MG mg total) by mouth tablet daily. clopidogrel Take 1 tablet (75 30 tablet 0 07/07/2017 Active (PLAVIX) 75 mg mg total) by mouth tablet daily. NICOTINE (NICODERM Place onto the 0 Active CQ TD) skin. ferrous sulfate 325 Take 1 tablet (325 60 tablet 0 08/09/2017 Active (65 FE) MG tablet mg total) by mouth 2 (two) times daily. melatonin 10 mg Tab Take 10 mg by mouth 0 Active every night as needed. isosorbide Take 30 mg by mouth 0 Active mononitrate (IMDUR) daily. 30 MG 24 hr tablet gabapentin Take 100 mg in AM 100 capsule 0 09/02/2017 Active (NEURONTIN) 100 MG and afternoon and capsule 300 mg at night. acetaminophen-codei Take 1 tablet by 20 tablet 0 09/05/2017 Active ne (TYLENOL #3) mouth every 6 (six) 300-30 mg per hours as needed. tablet Max Daily Amount: 4 tablets acetaminophen Take 2 tablets (650 30 tablet 0 06/01/2017 (TYLENOL) 325 MG mg total) by mouth 9 tablet every 6 (six) hours as needed for Pain for up to 360 days. bumetanide (BUMEX) Take 1 tablet (1 mg 60 tablet 0 09/05/2017 1 MG tablet total) by mouth 2 8 (two) times daily for 30 days. 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 Last Filed Vital Signs Not on file Plan of Treatment Not on file Implants Implanted Type Area [employer] Device Shelf Model / Identifier Expiration Serial / Date Lot Device Clsr Angio-Seal Vip 8fr [id number] - [id number] Cardiovascular N/A: [facility] EVELY[employer] 01/28/2018 [id number] / Implanted: Qty: 1 on 05/12/2017 by Sandra Gaytan MD [place] MED:CARDIAC / SURG [id number] Grft Eptfe-Heparin Rng [id number] - [id number] Graft/Patch Right: [employer] GORE & 04/09/2021 [id number] / Implanted: Qty: 1 on 08/05/2017 by Mariela Ramirez MD Leg ASSC:MED PRDT [id number] / N/A Procedures Procedure Name Priority Date/Time Associated Diagnosis Comments RHYTHM STRIP - SCAN 07/14/2018 9:01 AM CDT after 09/11/2017 Results RHYTHM STRIP - SCAN (07/14/2018 9:01 AM CDT) Narrative Performed At after 09/11/2017 Insurance Payer Benefit Plan / Group Subscriber ID Type Phone Address [place] xxxxxxxxx Advance Directives For more information, please contact:[address] [phone] Code Status Date Activated Date Inactivated Comments [...]
--- OUTSIDE RECORDS SUMMARY | 2018-09-12 15:20 | XMS REPORT ---
:1955 [facility] [address] [place] [address] Care Team Providers Name Role Phone RAJENDRA [...] (BEAKER) (test 220 mg/dL 70-110 TESTED AT [facility] [address] [facility] nexg=2443) [facility] [address] BASIC METABOLIC [id number] 15:47:00 Test Item Value Reference Range Comments SODIUM (BEAKER) (test 135 meq/L 136-145 nlkd=851) POTASSIUM (BEAKER) (test 4.8 meq/L 3.5-5.1 pkfc=419) CHLORIDE (BEAKER) (test 102 meq/L 98-107 euqn=385) CO2 (BEAKER) (test 25 meq/L 22-29 funb=140) BLOOD UREA NITROGEN 51 mg/dL 7-21 (BEAKER) (test xluc=791) CREATININE (BEAKER) (test 1.99 mg/dL 0.57-1.25 zyer=661) GLUCOSE RANDOM (BEAKER) 201 mg/dL 70-105 (test xbit=002) CALCIUM (BEAKER) (test 8.8 mg/dL 8.4-10.2 qngt=233) EGFR (BEAKER) (test 25 mL/min/1.73 sq m ESTIMATED GFR IS NOT npxa=3984) ACCURATE CREATININE CLEARANCE IN PREDICTING GLOMERULAR FILTRATION RATE. ESTIMATED GFR IS NOT APPLICABLE FOR DIALYSIS PATIENTS. POCT-GLUCOSE [id number] 11:30:00 Test Item Value Reference Range Comments POC-GLUCOSE METER (BEAKER) 268 mg/dL 70-110 TESTED AT [facility] [address] [facility] (test kvdb=3143) [facility] [address] POCT-GLUCOSE [id number] 07:08:00 Test Item Value Reference Range Comments POC-GLUCOSE METER (BEAKER) 208 mg/dL 70-110 TESTED AT [place] [id number] [facility] (test uglm=8254) [facility] [address] CALCIUM, [id number] 06:47:00 Test Item Value Reference Range Comments CALCIUM IONIZED (BEAKER) (test oyjs=374) 1.11 mmol/L 1.12-1.27 PH, BLOOD (BEAKER) (test uhjh=0086) 7.40 BASIC METABOLIC [id number] 06:40:00 Test Item Value Reference Range Comments SODIUM (BEAKER) (test 134 meq/L 136-145 fxwp=464) POTASSIUM (BEAKER) (test 4.9 meq/L 3.5-5.1 proe=265) CHLORIDE (BEAKER) (test 103 meq/L 98-107 udag=206) CO2 (BEAKER) (test 24 meq/L 22-29 lifs=708) BLOOD UREA NITROGEN 53 mg/dL 7-21 (BEAKER) (test lpht=429) CREATININE (BEAKER) (test 2.02 mg/dL 0.57-1.25 njcn=073) GLUCOSE RANDOM (BEAKER) 186 mg/dL 70-105 (test ozhu=934) CALCIUM (BEAKER) (test 9.1 mg/dL 8.4-10.2 kkkl=011) EGFR (BEAKER) (test 25 mL/min/1.73 sq m ESTIMATED GFR IS NOT exyy=3961) ACCURATE CREATININE CLEARANCE IN PREDICTING GLOMERULAR FILTRATION RATE. ESTIMATED GFR IS NOT APPLICABLE FOR DIALYSIS PATIENTS. [id number] 06:33:00 Test Item Value Reference Range Comments PHOSPHORUS (BEAKER) (test mjfv=989) 5.1 mg/dL 2.3-4.7 [id number] 06:33:00 Test Item Value Reference Range Comments MAGNESIUM (BEAKER) (test jegi=521) 2.0 mg/dL 1.6-2.6 LACTIC ACID, VENOUS, WHOLE [id number] 06:02:00 Test Item Value Reference Range Comments LACTATE BLOOD VENOUS (2) (BEAKER) (test 0.8 mmol/L 0.5-2.2 ienv=9466) Effective 08/02/2015: Units/Reference Range ChangeNew: 0.5-2.2 mmol/L Previous: 5 -20 mg/dLCBC W/PLT COUNT & AUTO [id number] 05:54:00 Test Item Value Reference Range Comments WHITE BLOOD CELL COUNT (BEAKER) (test zgze=575) 7.1 K/ L 3.5-10.5 RED BLOOD CELL COUNT (BEAKER) (test zzmw=085) 3.68 M/ L 3.93-5.22 HEMOGLOBIN (BEAKER) (test lszm=591) 9.0 GM/DL 11.2-15.7 HEMATOCRIT (BEAKER) (test rzch=344) 29.6 % 34.1-44.9 MEAN CORPUSCULAR VOLUME (BEAKER) (test usoz=808) 80.4 fL 79.4-94.8 MEAN CORPUSCULAR HEMOGLOBIN (BEAKER) (test 24.5 pg 25.6-32.2 piqz=194) MEAN CORPUSCULAR HEMOGLOBIN CONC (BEAKER) (test 30.4 GM/DL 32.2-35.5 jzuj=189) RED CELL DISTRIBUTION WIDTH (BEAKER) (test 16.5 % 11.7-14.4 hiyc=349) PLATELET COUNT (BEAKER) (test zdmx=019) 215 K/CU MM 150-450 MEAN PLATELET VOLUME (BEAKER) (test jpbf=497) 9.5 fL 9.4-12.3 NUCLEATED RED BLOOD CELLS (BEAKER) (test 0 /100 WBC 0-0 kfzx=336) NEUTROPHILS RELATIVE PERCENT (BEAKER) (test 42 % rjlp=069) LYMPHOCYTES RELATIVE PERCENT (BEAKER) (test 46 % fhil=250) MONOCYTES RELATIVE PERCENT (BEAKER) (test 6 % aknl=077) EOSINOPHILS RELATIVE PERCENT (BEAKER) (test 5 % iqvi=104) BASOPHILS RELATIVE PERCENT (BEAKER) (test 1 % bnpx=167) NEUTROPHILS ABSOLUTE COUNT (BEAKER) (test 2.96 K/ L 1.56-6.13 tnxi=788) LYMPHOCYTES ABSOLUTE COUNT (BEAKER) (test 3.27 K/ L 1.18-3.74 xasj=319) MONOCYTES ABSOLUTE COUNT (BEAKER) (test 0.41 K/ L 0.24-0.36 wdfk=448) EOSINOPHILS ABSOLUTE COUNT (BEAKER) (test 0.34 K/ L 0.04-0.36 dqdi=765) BASOPHILS ABSOLUTE COUNT (BEAKER) (test 0.08 K/ L 0.01-0.08 goqy=038) IMMATURE GRANULOCYTES-RELATIVE PERCENT (BEAKER) 0 % 0-1 (test wtym=0961) POCT-GLUCOSE [id number] 21:30:00 Test Item Value Reference Range Comments POC-GLUCOSE METER (BEAKER) 248 mg/dL 70-110 TESTED AT [address] (test hyxt=2414) [facility] [address] RAD, [id number] 21:22:00Reason for exam:->fall, tailbone painFINAL REPORT RAD, [...] MDReport Verified Date/Time: 2017 21:22:03 Reading Location: [address] Reading Room POCT- GLUCOSE [id number] 17:37:00 Test Item Value Reference Range Comments POC-GLUCOSE METER (BEAKER) 222 mg/dL 70-110 TESTED AT [address] (test xaaa=1849) [facility] [address] POCT-GLUCOSE [id number] 13:55:00 Test Item Value Reference Range Comments POC-GLUCOSE METER (BEAKER) 194 mg/dL 70-110 TESTED AT [facility] [address] [facility] (test rumj=0590) [facility] [address] POCT-GLUCOSE [id number] 12:34:00 Test Item Value Reference Range Comments POC-GLUCOSE METER (BEAKER) 229 mg/dL 70-110 TESTED AT [address] (test cajj=1151) [facility] [address] POCT-GLUCOSE [id number] 08:00:00 Test Item Value Reference Range Comments POC-GLUCOSE METER (BEAKER) 159 mg/dL 70-110 TESTED AT [address] (test qgmd=8197) [facility] [address] CALCIUM, [id number] 06:00:00 Test Item Value Reference Range Comments CALCIUM IONIZED (BEAKER) (test emlc=302) 1.05 mmol/L 1.12-1.27 PH, BLOOD (BEAKER) (test euxs=1780) 7.45 [id number] 05:59:00 Test Item Value Reference Range Comments PHOSPHORUS (BEAKER) (test rxao=127) 4.8 mg/dL 2.3-4.7 [id number] 05:59:00 Test Item Value Reference Range Comments MAGNESIUM (BEAKER) (test fvyf=400) 2.0 mg/dL 1.6-2.6 BASIC METABOLIC [id number] 05:59:00 Test Item Value Reference Range Comments SODIUM (BEAKER) (test 134 meq/L 136-145 eeqh=575) POTASSIUM (BEAKER) (test 4.4 meq/L 3.5-5.1 rmwf=653) CHLORIDE (BEAKER) (test 103 meq/L 98-107 jsmy=099) CO2 (BEAKER) (test 23 meq/L 22-29 mwwi=890) BLOOD UREA NITROGEN 49 mg/dL 7-21 (BEAKER) (test cjhr=014) CREATININE (BEAKER) (test 1.69 mg/dL 0.57-1.25 bsyj=410) GLUCOSE RANDOM (BEAKER) 138 mg/dL 70-105 (test kygu=562) CALCIUM (BEAKER) (test 8.7 mg/dL 8.4-10.2 zvzg=810) EGFR (BEAKER) (test 31 mL/min/1.73 sq m ESTIMATED GFR IS NOT reqt=9682) ACCURATE CREATININE CLEARANCE IN PREDICTING GLOMERULAR FILTRATION RATE. ESTIMATED GFR IS NOT APPLICABLE FOR DIALYSIS PATIENTS. CREATINE KINASE (CK)2017-09-04 05:59:00 Test Item Value Reference Range Comments CREATINE KINASE TOTAL (BEAKER) (test trks=015) 45 U/L 29-200 CBC W/PLT COUNT & AUTO [id number] 05:32:00 Test Item Value Reference Range Comments WHITE BLOOD CELL COUNT (BEAKER) (test lxol=618) 6.1 K/ L 3.5-10.5 RED BLOOD CELL COUNT (BEAKER) (test lxll=294) 3.69 M/ L 3.93-5.22 HEMOGLOBIN (BEAKER) (test ebps=030) 8.8 GM/DL 11.2-15.7 HEMATOCRIT (BEAKER) (test gdvi=535) 29.3 % 34.1-44.9 MEAN CORPUSCULAR VOLUME (BEAKER) (test wswf=718) 79.4 fL 79.4-94.8 MEAN CORPUSCULAR HEMOGLOBIN (BEAKER) (test 23.8 pg 25.6-32.2 dxsd=902) MEAN CORPUSCULAR HEMOGLOBIN CONC (BEAKER) (test 30.0 GM/DL 32.2-35.5 nkog=570) RED CELL DISTRIBUTION WIDTH (BEAKER) (test 16.3 % 11.7-14.4 ytfh=130) PLATELET COUNT (BEAKER) (test tywi=903) 219 K/CU MM 150-450 MEAN PLATELET VOLUME (BEAKER) (test ujjh=395) 9.4 fL 9.4-12.3 NUCLEATED RED BLOOD CELLS (BEAKER) (test 0 /100 WBC 0-0 rzxu=536) NEUTROPHILS RELATIVE PERCENT (BEAKER) (test 44 % xdmq=888) LYMPHOCYTES RELATIVE PERCENT (BEAKER) (test 43 % disp=304) MONOCYTES RELATIVE PERCENT (BEAKER) (test 6 % rmyu=391) EOSINOPHILS RELATIVE PERCENT (BEAKER) (test 6 % nwxe=584) BASOPHILS RELATIVE PERCENT (BEAKER) (test 1 % wcze=174) NEUTROPHILS ABSOLUTE COUNT (BEAKER) (test 2.67 K/ L 1.56-6.13 ahkc=728) LYMPHOCYTES ABSOLUTE COUNT (BEAKER) (test 2.66 K/ L 1.18-3.74 hdxi=481) MONOCYTES ABSOLUTE COUNT (BEAKER) (test 0.38 K/ L 0.24-0.36 eaaq=365) EOSINOPHILS ABSOLUTE COUNT (BEAKER) (test 0.37 K/ L 0.04-0.36 zajo=557) BASOPHILS ABSOLUTE COUNT (BEAKER) (test 0.05 K/ L 0.01-0.08 rftf=835) IMMATURE GRANULOCYTES-RELATIVE PERCENT (BEAKER) 0 % 0-1 (test nske=1783) POCT-GLUCOSE [id number] 20:36:00 Test Item Value Reference Range Comments POC-GLUCOSE METER (BEAKER) 211 mg/dL 70-110 TESTED AT [address] (test wirf=5541) [place] [address] CREATININE, RANDOM [id number] 19:55:00 Test Item Value Reference Range Comments CREATININE URINE (BEAKER) (test hrwd=848) 16.1 mg/dL Reference Range: No NormalsPROTEIN, RANDOM [id number] 19:55:00 Test Item Value Reference Range Comments PROTEIN, URINE (BEAKER) (test qzga=7183) 102 mg/dL 0-14 POCT-GLUCOSE [id number] 18:04:00 Test Item Value Reference Range Comments POC-GLUCOSE METER (BEAKER) 177 mg/dL 70-110 TESTED AT [address] (test pfie=5545) [place] [address] POCT-GLUCOSE [id number] 11:59:00 Test Item Value Reference Range Comments POC-GLUCOSE METER (BEAKER) 244 mg/dL 70-110 TESTED AT [address] (test vzxq=0479) [place] [address] POCT-GLUCOSE [id number] 07:53:00 Test Item Value Reference Range Comments POC-GLUCOSE METER (BEAKER) 160 mg/dL 70-110 TESTED AT [address] (test paeb=3497) [place] [address] BASIC METABOLIC [id number] 05:29:00 Test Item Value Reference Range Comments SODIUM (BEAKER) (test 136 meq/L 136-145 ahoa=149) POTASSIUM (BEAKER) (test 4.5 meq/L 3.5-5.1 pjlq=190) CHLORIDE (BEAKER) (test 105 meq/L 98-107 pyyr=078) CO2 (BEAKER) (test 24 meq/L 22-29 zejb=664) BLOOD UREA NITROGEN 51 mg/dL 7-21 (BEAKER) (test msop=273) CREATININE (BEAKER) (test 1.76 mg/dL 0.57-1.25 hntk=750) GLUCOSE RANDOM (BEAKER) 149 mg/dL 70-105 (test wnjj=131) CALCIUM (BEAKER) (test 8.9 mg/dL 8.4-10.2 iqng=344) EGFR (BEAKER) (test 29 mL/min/1.73 sq m ESTIMATED GFR IS NOT atfz=1112) ACCURATE CREATININE CLEARANCE IN PREDICTING GLOMERULAR FILTRATION RATE. ESTIMATED GFR IS NOT APPLICABLE FOR DIALYSIS PATIENTS. [id number] 05:21:00 Test Item Value Reference Range Comments MAGNESIUM (BEAKER) (test vrhx=333) 2.1 mg/dL 1.6-2.6 HEPATIC FUNCTION [id number] 05:21:00 Test Item Value Reference Range Comments TOTAL PROTEIN (BEAKER) (test aiay=737) 6.8 gm/dL 6.0-8.3 ALBUMIN (BEAKER) (test waud=0399) 2.9 g/dL 3.5-5.0 BILIRUBIN TOTAL (BEAKER) (test txyl=914) 0.5 mg/dL 0.2-1.2 BILIRUBIN DIRECT (BEAKER) (test ubpm=134) 0.2 mg/dL 0.1-0.5 ALKALINE PHOSPHATASE (BEAKER) (test asfn=599) 173 U/L 40-150 AST (SGOT) (BEAKER) (test sozz=343) 25 U/L 5-34 ALT (SGPT) (BEAKER) (test qmss=258) 23 U/L 6-55 TROPONIN [id number] 05:18:00 Test Item Value Reference Range Comments TROPONIN I (BEAKER) (test asea=041) 0.05 ng/mL 0.00-0.03 Troponin I (TnI) levels [...] and persistent tachyarrhythmia.CBC W/PLT COUNT & AUTO [id number] 04:59:00 Test Item Value Reference Range Comments WHITE BLOOD CELL COUNT (BEAKER) (test xwrb=719) 6.9 K/ L 3.5-10.5 RED BLOOD CELL COUNT (BEAKER) (test jsfd=976) 3.75 M/ L 3.93-5.22 HEMOGLOBIN (BEAKER) (test slst=757) 8.9 GM/DL 11.2-15.7 HEMATOCRIT (BEAKER) (test hzhw=699) 29.7 % 34.1-44.9 MEAN CORPUSCULAR VOLUME (BEAKER) (test yicc=618) 79.2 fL 79.4-94.8 MEAN CORPUSCULAR HEMOGLOBIN (BEAKER) (test 23.7 pg 25.6-32.2 tubb=707) MEAN CORPUSCULAR HEMOGLOBIN CONC (BEAKER) (test 30.0 GM/DL 32.2-35.5 zkxg=712) RED CELL DISTRIBUTION WIDTH (BEAKER) (test 16.2 % 11.7-14.4 kqsb=860) PLATELET COUNT (BEAKER) (test jjjj=591) 240 K/CU MM 150-450 MEAN PLATELET VOLUME (BEAKER) (test cugo=760) 9.6 fL 9.4-12.3 NUCLEATED RED BLOOD CELLS (BEAKER) (test 0 /100 WBC 0-0 mnes=966) NEUTROPHILS RELATIVE PERCENT (BEAKER) (test 48 % fwqh=750) LYMPHOCYTES RELATIVE PERCENT (BEAKER) (test 40 % xlqk=422) MONOCYTES RELATIVE PERCENT (BEAKER) (test 6 % yhpj=106) EOSINOPHILS RELATIVE PERCENT (BEAKER) (test 5 % hjsx=278) BASOPHILS RELATIVE PERCENT (BEAKER) (test 1 % tqyn=853) NEUTROPHILS ABSOLUTE COUNT (BEAKER) (test 3.32 K/ L 1.56-6.13 bfaz=378) LYMPHOCYTES ABSOLUTE COUNT (BEAKER) (test 2.76 K/ L 1.18-3.74 nhvq=530) MONOCYTES ABSOLUTE COUNT (BEAKER) (test 0.39 K/ L 0.24-0.36 lqan=967) EOSINOPHILS ABSOLUTE COUNT (BEAKER) (test 0.36 K/ L 0.04-0.36 yjoz=531) BASOPHILS ABSOLUTE COUNT (BEAKER) (test 0.06 K/ L 0.01-0.08 dflo=910) IMMATURE GRANULOCYTES-RELATIVE PERCENT (BEAKER) 0 % 0-1 (test lsat=7050) TROPONIN [id number] 23:40:00 Test Item Value Reference Range Comments TROPONIN I (BEAKER) (test uwii=375) 0.04 ng/mL 0.00-0.03 Troponin I (TnI) levels [...] acidosis, acute neurological disease, and persistent tachyarrhythmia.POCT-GLUCOSE [id number] 22:51:00 Test Item Value Reference Range Comments POC-GLUCOSE METER (BEAKER) 214 mg/dL 70-110 TESTED AT [address] (test gsvi=3104) [facility] [address] RAD, CHEST, 1 VIEW, NON [id number] 21:42:00Reason for exam:->CHEST PAINShould this be performed at the bedside?->YesFINAL REPORT RAD, CHEST, 1 VIEW, NON DEPT INDICATION: CHEST PAIN COMPARISON: Chest x -ray 4 weeks ago TECHNIQUE: Single frontal view of the chest. IMPRESSION: Cardiomegaly.Mild pulmonary interstitial edema with a small right-sided effusion.No acute osseous abnormality. Signed: Dario Abraham MDReport Verified Date/Time: 09/02/2017 21:42:11 Reading Location: [address] Reading Room CREATININE, RANDOM [id number] 21:10:00 Test Item Value Reference Range Comments CREATININE URINE (BEAKER) (test xlio=134) 35.5 mg/dL Reference Range: No NormalsSODIUM, RANDOM [id number] 21:10:00 Test Item Value Reference Range Comments SODIUM URINE (BEAKER) (test zrnw=033) 80 meq/L Reference Range: No NormalsURINALYSIS W/ [id number] 20:59:00 Test Item Value Reference Range Comments COLOR (BEAKER) (test gytx=101) Light Yellow CLARITY (BEAKER) (test bbrl=515) Clear SPECIFIC GRAVITY UA (BEAKER) (test clzl=519) 1.008 1.001-1.035 PH UA (BEAKER) (test xrrn=035) 6.5 5.0-8.0 PROTEIN UA (BEAKER) (test ohwa=123) 200 mg/dL Negative GLUCOSE UA (BEAKER) (test yyio=730) 70 mg/dL Negative KETONES UA (BEAKER) (test pfjr=219) Negative Negative BILIRUBIN UA (BEAKER) (test iavw=438) Negative Negative BLOOD UA (BEAKER) (test glwk=664) Negative Negative NITRITE UA (BEAKER) (test fzni=015) Negative Negative LEUKOCYTE ESTERASE UA (BEAKER) (test nbwr=366) Negative Negative UROBILINOGEN UA (BEAKER) (test wewy=682) 0.2 mg/dL 0.2-1.0 RBC UA (BEAKER) (test esgf=840) < /HPF WBC UA (BEAKER) (test augq=034) 2 /HPF BACTERIA (BEAKER) (test bppr=560) Occasional MUCUS (BEAKER) (test heuy=8236) Rare SQUAMOUS EPITHELIAL (BEAKER) (test dymj=504) 2 /HPF HYALINE CASTS (BEAKER) (test ydlq=783) 7 /LPF SOURCE(BEAKER) (test mjvl=0934) BASIC METABOLIC [id number] 16:49:00 Test Item Value Reference Range Comments SODIUM (BEAKER) (test 134 meq/L 136-145 qcwr=014) POTASSIUM (BEAKER) (test 4.8 meq/L 3.5-5.1 mgtg=246) CHLORIDE (BEAKER) (test 101 meq/L 98-107 hhvo=972) CO2 (BEAKER) (test 26 meq/L 22-29 monm=419) BLOOD UREA NITROGEN 53 mg/dL 7-21 (BEAKER) (test zepq=029) CREATININE (BEAKER) (test 2.04 mg/dL 0.57-1.25 hdsu=501) GLUCOSE RANDOM (BEAKER) 267 mg/dL 70-105 (test azps=442) CALCIUM (BEAKER) (test 9.1 mg/dL 8.4-10.2 sxcu=932) EGFR (BEAKER) (test 25 mL/min/1.73 sq m ESTIMATED GFR IS NOT lnsb=4060) ACCURATE CREATININE CLEARANCE IN PREDICTING GLOMERULAR FILTRATION RATE. ESTIMATED GFR IS NOT APPLICABLE FOR DIALYSIS PATIENTS. PT/[id number] 16:38:00 Test Item Value Reference Range Comments PROTIME (BEAKER) (test xzsa=077) 14.4 seconds 11.7-14.7 INR (BEAKER) (test crxe=121) 1.1 <=5.9 PARTIAL THROMBOPLASTIN TIME (BEAKER) (test 31.0 seconds 22.5-36.0 bhgw=310) RECOMMENDED COUMADIN/WARFARIN INR THERAPY RANGESSTANDARD DOSE: 2.0 - 3.0 Includes: PROPHYLAXIS forvenous thrombosis, systemic embolization; TREATMENT for venous thrombosis and/or pulmonary embolus.HIGH RISK: Target INR is 2.5-3.5 for patients with mechanical heart valves.CBC W/PLT COUNT & AUTO [id number] 16:26:00 Test Item Value Reference Range Comments WHITE BLOOD CELL COUNT (BEAKER) (test tpgl=918) 6.3 K/ L 3.5-10.5 RED BLOOD CELL COUNT (BEAKER) (test ifoz=207) 4.22 M/ L 3.93-5.22 HEMOGLOBIN (BEAKER) (test ilks=064) 10.1 GM/DL 11.2-15.7 HEMATOCRIT (BEAKER) (test hcum=686) 33.4 % 34.1-44.9 MEAN CORPUSCULAR VOLUME (BEAKER) (test axvs=862) 79.1 fL 79.4-94.8 MEAN CORPUSCULAR HEMOGLOBIN (BEAKER) (test 23.9 pg 25.6-32.2 dhuh=743) MEAN CORPUSCULAR HEMOGLOBIN CONC (BEAKER) (test 30.2 GM/DL 32.2-35.5 hqmq=407) RED CELL DISTRIBUTION WIDTH (BEAKER) (test 16.1 % 11.7-14.4 ioqr=412) PLATELET COUNT (BEAKER) (test yrri=658) 252 K/CU MM 150-450 MEAN PLATELET VOLUME (BEAKER) (test hafx=649) 9.5 fL 9.4-12.3 NUCLEATED RED BLOOD CELLS (BEAKER) (test 0 /100 WBC 0-0 rflm=858) NEUTROPHILS RELATIVE PERCENT (BEAKER) (test 49 % cukd=534) LYMPHOCYTES RELATIVE PERCENT (BEAKER) (test 38 % spad=913) MONOCYTES RELATIVE PERCENT (BEAKER) (test 6 % amtz=821) EOSINOPHILS RELATIVE PERCENT (BEAKER) (test 5 % awgt=920) BASOPHILS RELATIVE PERCENT (BEAKER) (test 1 % xidh=558) NEUTROPHILS ABSOLUTE COUNT (BEAKER) (test 3.08 K/ L 1.56-6.13 apsq=996) LYMPHOCYTES ABSOLUTE COUNT (BEAKER) (test 2.42 K/ L 1.18-3.74 mxff=814) MONOCYTES ABSOLUTE COUNT (BEAKER) (test 0.40 K/ L 0.24-0.36 cnac=611) EOSINOPHILS ABSOLUTE COUNT (BEAKER) (test 0.33 K/ L 0.04-0.36 yikz=171) BASOPHILS ABSOLUTE COUNT (BEAKER) (test 0.07 K/ L 0.01-0.08 cdlr=662) IMMATURE GRANULOCYTES-RELATIVE PERCENT (BEAKER) 0 % 0-1 (test lhhf=2506) B-TYPE NATRIURETIC FACTOR (BNP)2017-09-02 13:47:00 Test Item Value Reference Range Comments B-TYPE NATRIURETIC PEPTIDE (BEAKER) (test 1942 pg/mL 0-100 phul=513) BASIC METABOLIC [id number] 13:43:00 Test Item Value Reference Range Comments SODIUM (BEAKER) (test 134 meq/L 136-145 oqlk=348) POTASSIUM (BEAKER) (test 5.2 meq/L 3.5-5.1 fkdn=852) CHLORIDE (BEAKER) (test 101 meq/L 98-107 lsjh=486) CO2 (BEAKER) (test 25 meq/L 22-29 vmup=336) BLOOD UREA NITROGEN 55 mg/dL 7-21 (BEAKER) (test twhi=348) CREATININE (BEAKER) (test 2.09 mg/dL 0.57-1.25 qimo=406) GLUCOSE RANDOM (BEAKER) 317 mg/dL 70-105 (test deiv=094) CALCIUM (BEAKER) (test 9.2 mg/dL 8.4-10.2 zlno=896) EGFR (BEAKER) (test 24 mL/min/1.73 sq m ESTIMATED GFR IS NOT wrrd=5452) ACCURATE CREATININE CLEARANCE IN PREDICTING GLOMERULAR FILTRATION RATE. ESTIMATED GFR IS NOT APPLICABLE FOR DIALYSIS PATIENTS. POCT-GLUCOSE [id number] 12:44:00 Test Item Value Reference Range Comments POC-GLUCOSE METER (BEAKER) 283 mg/dL 70-110 TESTED AT [facility] [address] [facility] (test tsbo=7344) [facility] [address] CALCIUM, [id number] 07:03:00 Test Item Value Reference Range Comments CALCIUM IONIZED (BEAKER) (test qyia=670) 1.02 mmol/L 1.12-1.27 PH, BLOOD (BEAKER) (test dqzf=6365) 7.43 [id number] 05:28:00 Test Item Value Reference Range Comments PHOSPHORUS (BEAKER) (test jnbm=417) 3.3 mg/dL 2.3-4.7 [id number] 05:28:00 Test Item Value Reference Range Comments MAGNESIUM (BEAKER) (test mbwj=721) 1.5 mg/dL 1.6-2.6 BASIC METABOLIC [id number] 05:28:00 Test Item Value Reference Range Comments SODIUM (BEAKER) (test 135 meq/L 136-145 xtpd=947) POTASSIUM (BEAKER) (test 3.9 meq/L 3.5-5.1 izpt=417) CHLORIDE (BEAKER) (test 101 meq/L 98-107 vfjj=840) CO2 (BEAKER) (test 27 meq/L 22-29 jhuy=460) BLOOD UREA NITROGEN 35 mg/dL 7-21 (BEAKER) (test xbun=950) CREATININE (BEAKER) (test 1.37 mg/dL 0.57-1.25 rmdu=152) GLUCOSE RANDOM (BEAKER) 145 mg/dL 70-105 (test qwqe=573) CALCIUM (BEAKER) (test 8.3 mg/dL 8.4-10.2 lsln=102) EGFR (BEAKER) (test 39 mL/min/1.73 sq m ESTIMATED GFR IS NOT rzvq=3959) ACCURATE CREATININE CLEARANCE IN PREDICTING GLOMERULAR FILTRATION RATE. ESTIMATED GFR IS NOT APPLICABLE FOR DIALYSIS PATIENTS. CBC W/PLT COUNT & AUTO [id number] 05:06:00 Test Item Value Reference Range Comments WHITE BLOOD CELL COUNT (BEAKER) (test dfni=901) 9.3 K/ L 3.5-10.5 RED BLOOD CELL COUNT (BEAKER) (test otxn=036) 3.64 M/ L 3.93-5.22 HEMOGLOBIN (BEAKER) (test efca=422) 8.7 GM/DL 11.2-15.7 HEMATOCRIT (BEAKER) (test pmjy=893) 28.5 % 34.1-44.9 MEAN CORPUSCULAR VOLUME (BEAKER) (test jlxj=837) 78.3 fL 79.4-94.8 MEAN CORPUSCULAR HEMOGLOBIN (BEAKER) (test 23.9 pg 25.6-32.2 qnhm=014) MEAN CORPUSCULAR HEMOGLOBIN CONC (BEAKER) (test 30.5 GM/DL 32.2-35.5 cjux=446) RED CELL DISTRIBUTION WIDTH (BEAKER) (test 14.6 % 11.7-14.4 fiqg=758) PLATELET COUNT (BEAKER) (test ufrp=823) 336 K/CU MM 150-450 MEAN PLATELET VOLUME (BEAKER) (test quba=307) 9.3 fL 9.4-12.3 NUCLEATED RED BLOOD CELLS (BEAKER) (test 0 /100 WBC 0-0 xbxv=765) NEUTROPHILS RELATIVE PERCENT (BEAKER) (test 50 % bskv=121) LYMPHOCYTES RELATIVE PERCENT (BEAKER) (test 40 % kiba=922) MONOCYTES RELATIVE PERCENT (BEAKER) (test 6 % nlqt=972) EOSINOPHILS RELATIVE PERCENT (BEAKER) (test 3 % kejv=510) BASOPHILS RELATIVE PERCENT (BEAKER) (test 1 % ulfv=825) NEUTROPHILS ABSOLUTE COUNT (BEAKER) (test 4.66 K/ L 1.56-6.13 chlz=898) LYMPHOCYTES ABSOLUTE COUNT (BEAKER) (test 3.71 K/ L 1.18-3.74 yzbt=503) MONOCYTES ABSOLUTE COUNT (BEAKER) (test 0.53 K/ L 0.24-0.36 cnsd=184) EOSINOPHILS ABSOLUTE COUNT (BEAKER) (test 0.31 K/ L 0.04-0.36 xvmy=129) BASOPHILS ABSOLUTE COUNT (BEAKER) (test 0.07 K/ L 0.01-0.08 yhfh=973) IMMATURE GRANULOCYTES-RELATIVE PERCENT (BEAKER) 1 % 0-1 (test bvum=6052) POCT-GLUCOSE [id number] 21:08:00 Test Item Value Reference Range Comments POC-GLUCOSE METER (BEAKER) 202 mg/dL 70-110 TESTED AT [address] (test uuor=0476) [facility] [address] POCT-GLUCOSE [id number] 16:50:00 Test Item Value Reference Range Comments POC-GLUCOSE METER (BEAKER) 287 mg/dL 70-110 TESTED AT [address] (test jmbi=9912) [facility] [address] POCT-GLUCOSE [id number] 12:21:00 Test Item Value Reference Range Comments POC-GLUCOSE METER (BEAKER) 213 mg/dL 70-110 TESTED AT [address] (test pany=6493) [facility] [address] POCT-GLUCOSE [id number] 08:28:00 Test Item Value Reference Range Comments POC-GLUCOSE METER (BEAKER) 178 mg/dL 70-110 TESTED AT [address] (test mhsp=9437) [facility] [address] CALCIUM, [id number] 07:06:00 Test Item Value Reference Range Comments CALCIUM IONIZED (BEAKER) (test hpzc=350) 0.99 mmol/L 1.12-1.27 PH, BLOOD (BEAKER) (test hkex=5802) 7.42 [id number] 05:37:00 Test Item Value Reference Range Comments PHOSPHORUS (BEAKER) (test maen=188) 3.5 mg/dL 2.3-4.7 [id number] 05:37:00 Test Item Value Reference Range Comments MAGNESIUM (BEAKER) (test unhw=681) 1.6 mg/dL 1.6-2.6 BASIC METABOLIC [id number] 05:37:00 Test Item Value Reference Range Comments SODIUM (BEAKER) (test 133 meq/L 136-145 leqo=390) POTASSIUM (BEAKER) (test 3.8 meq/L 3.5-5.1 mfop=079) CHLORIDE (BEAKER) (test 101 meq/L 98-107 wggt=008) CO2 (BEAKER) (test 25 meq/L 22-29 iehy=130) BLOOD UREA NITROGEN 39 mg/dL 7-21 (BEAKER) (test lldy=091) CREATININE (BEAKER) (test 1.42 mg/dL 0.57-1.25 xyei=224) GLUCOSE RANDOM (BEAKER) 200 mg/dL 70-105 (test cpqn=511) CALCIUM (BEAKER) (test 8.0 mg/dL 8.4-10.2 vlnd=481) EGFR (BEAKER) (test 37 mL/min/1.73 sq m ESTIMATED GFR IS NOT meti=8188) ACCURATE CREATININE CLEARANCE IN PREDICTING GLOMERULAR FILTRATION RATE. ESTIMATED GFR IS NOT APPLICABLE FOR DIALYSIS PATIENTS. CBC W/PLT COUNT & AUTO [id number] 05:07:00 Test Item Value Reference Range Comments WHITE BLOOD CELL COUNT (BEAKER) (test ovnr=067) 9.2 K/ L 3.5-10.5 RED BLOOD CELL COUNT (BEAKER) (test cvbc=753) 3.69 M/ L 3.93-5.22 HEMOGLOBIN (BEAKER) (test mcqn=545) 8.8 GM/DL 11.2-15.7 HEMATOCRIT (BEAKER) (test kbdo=733) 28.8 % 34.1-44.9 MEAN CORPUSCULAR VOLUME (BEAKER) (test ntgr=780) 78.0 fL 79.4-94.8 MEAN CORPUSCULAR HEMOGLOBIN (BEAKER) (test 23.8 pg 25.6-32.2 iojq=908) MEAN CORPUSCULAR HEMOGLOBIN CONC (BEAKER) (test 30.6 GM/DL 32.2-35.5 eekn=655) RED CELL DISTRIBUTION WIDTH (BEAKER) (test 14.6 % 11.7-14.4 llxj=516) PLATELET COUNT (BEAKER) (test fmty=440) 308 K/CU MM 150-450 MEAN PLATELET VOLUME (BEAKER) (test cdrq=473) 9.3 fL 9.4-12.3 NUCLEATED RED BLOOD CELLS (BEAKER) (test 0 /100 WBC 0-0 lnjw=503) NEUTROPHILS RELATIVE PERCENT (BEAKER) (test 61 % xvrc=072) LYMPHOCYTES RELATIVE PERCENT (BEAKER) (test 30 % tibc=850) MONOCYTES RELATIVE PERCENT (BEAKER) (test 5 % elkd=215) EOSINOPHILS RELATIVE PERCENT (BEAKER) (test 3 % trkp=799) BASOPHILS RELATIVE PERCENT (BEAKER) (test 0 % lgau=743) NEUTROPHILS ABSOLUTE COUNT (BEAKER) (test 5.67 K/ L 1.56-6.13 bnkc=542) LYMPHOCYTES ABSOLUTE COUNT (BEAKER) (test 2.72 K/ L 1.18-3.74 aotn=145) MONOCYTES ABSOLUTE COUNT (BEAKER) (test 0.48 K/ L 0.24-0.36 ozfe=749) EOSINOPHILS ABSOLUTE COUNT (BEAKER) (test 0.26 K/ L 0.04-0.36 zqyo=471) BASOPHILS ABSOLUTE COUNT (BEAKER) (test 0.04 K/ L 0.01-0.08 hvxq=375) IMMATURE GRANULOCYTES-RELATIVE PERCENT (BEAKER) 1 % 0-1 (test irsb=3640) POCT-GLUCOSE [id number] 21:24:00 Test Item Value Reference Range Comments POC-GLUCOSE METER (BEAKER) 255 mg/dL 70-110 TESTED AT [address] (test nmhz=3098) [place] [id number] POCT-GLUCOSE [id number] 17:11:00 Test Item Value Reference Range Comments POC-GLUCOSE METER (BEAKER) 244 mg/dL 70-110 TESTED AT [address] (test gaoj=6424) [facility] [address] POCT-GLUCOSE [id number] 11:54:00 Test Item Value Reference Range Comments POC-GLUCOSE METER (BEAKER) 209 mg/dL 70-110 TESTED AT [address] (test ilem=0666) [place] [id number] POCT-GLUCOSE [id number] 08:15:00 Test Item Value Reference Range Comments POC-GLUCOSE METER (BEAKER) 132 mg/dL 70-110 TESTED AT [address] (test otnt=0497) [facility] [address] RAD, CHEST, 1 VIEW, NON [id number] 07:44:00Reason for exam:->edemaShould this be performed at the bedside?->YesFINAL REPORT Chest one view AP 08/07/2017 7:44 AM CLINICAL INDICATION: edema COMPARISON: 2017 IMPRESSION: Cardiomediastinal contours are stable. There is mild pulmonary edema,asymmetric to the right. There are trace bilateral pleural effusions, with bibasilar linear atelectasis. Sternotomy wires remain midline. Signed: Eder Cespedes Verified Date/Time: 08/07/2017 07:44:22 Reading Location: [facility] Radiology Reading Room [id number] 05:30:00 Test Item Value Reference Range Comments FERRITIN (BEAKER) (test xavl=606) 87 ng/mL 5-275 CBC W/PLT COUNT & AUTO [id number] 05:21:00 Test Item Value Reference Range Comments WHITE BLOOD CELL COUNT (BEAKER) (test xmlx=804) 12.4 K/ L 3.5-10.5 RED BLOOD CELL COUNT (BEAKER) (test esxc=683) 3.78 M/ L 3.93-5.22 HEMOGLOBIN (BEAKER) (test ebqc=974) 9.0 GM/DL 11.2-15.7 HEMATOCRIT (BEAKER) (test dfvd=824) 29.3 % 34.1-44.9 MEAN CORPUSCULAR VOLUME (BEAKER) (test thlq=840) 77.5 fL 79.4-94.8 MEAN CORPUSCULAR HEMOGLOBIN (BEAKER) (test 23.8 pg 25.6-32.2 mkoz=956) MEAN CORPUSCULAR HEMOGLOBIN CONC (BEAKER) (test 30.7 GM/DL 32.2-35.5 rpik=653) RED CELL DISTRIBUTION WIDTH (BEAKER) (test 14.7 % 11.7-14.4 gtjl=838) PLATELET COUNT (BEAKER) (test tnfh=748) 316 K/CU MM 150-450 MEAN PLATELET VOLUME (BEAKER) (test qupn=152) 9.6 fL 9.4-12.3 NUCLEATED RED BLOOD CELLS (BEAKER) (test 0 /100 WBC 0-0 jgjp=871) NEUTROPHILS RELATIVE PERCENT (BEAKER) (test 72 % qwbx=314) LYMPHOCYTES RELATIVE PERCENT (BEAKER) (test 20 % nage=779) MONOCYTES RELATIVE PERCENT (BEAKER) (test 5 % mwvn=247) EOSINOPHILS RELATIVE PERCENT (BEAKER) (test 2 % gqyr=802) BASOPHILS RELATIVE PERCENT (BEAKER) (test 1 % gxdx=981) NEUTROPHILS ABSOLUTE COUNT (BEAKER) (test 8.93 K/ L 1.56-6.13 bebb=507) LYMPHOCYTES ABSOLUTE COUNT (BEAKER) (test 2.51 K/ L 1.18-3.74 uwkb=166) MONOCYTES ABSOLUTE COUNT (BEAKER) (test 0.58 K/ L 0.24-0.36 mtrj=189) EOSINOPHILS ABSOLUTE COUNT (BEAKER) (test 0.23 K/ L 0.04-0.36 gxwr=240) BASOPHILS ABSOLUTE COUNT (BEAKER) (test 0.07 K/ L 0.01-0.08 lvxq=588) IMMATURE GRANULOCYTES-RELATIVE PERCENT (BEAKER) 1 % 0-1 (test vlaf=2695) IRON, TIBC, % SAT. (WITHOUT FERRITIN)2017-08-07 05:16:00 Test Item Value Reference Range Comments IRON (BEAKER) (test ljbf=282) 21 ug/dL 40-160 TOTAL IRON BINDING CAPACITY (BEAKER) (test 184 ug/dL 250-450 dlnd=225) IRON % SATURATION (2) (BEAKER) (test mfhg=5465) 11 % 20-55 [id number] 05:11:00 Test Item Value Reference Range Comments PHOSPHORUS (BEAKER) (test lknu=423) 3.6 mg/dL 2.3-4.7 [id number] 05:11:00 Test Item Value Reference Range Comments MAGNESIUM (BEAKER) (test xmyc=055) 2.0 mg/dL 1.6-2.6 BASIC METABOLIC [id number] 05:11:00 Test Item Value Reference Range Comments SODIUM (BEAKER) (test 134 meq/L 136-145 wyse=060) POTASSIUM (BEAKER) (test 3.9 meq/L 3.5-5.1 segp=293) CHLORIDE (BEAKER) (test 102 meq/L 98-107 dxbb=878) CO2 (BEAKER) (test 23 meq/L 22-29 nkmp=554) BLOOD UREA NITROGEN 41 mg/dL 7-21 (BEAKER) (test cwky=019) CREATININE (BEAKER) (test 1.63 mg/dL 0.57-1.25 gybn=890) GLUCOSE RANDOM (BEAKER) 124 mg/dL 70-105 (test ijft=726) CALCIUM (BEAKER) (test 8.3 mg/dL 8.4-10.2 ycoj=010) EGFR (BEAKER) (test 32 mL/min/1.73 sq m ESTIMATED GFR IS NOT dpdy=6447) ACCURATE CREATININE CLEARANCE IN PREDICTING GLOMERULAR FILTRATION RATE. ESTIMATED GFR IS NOT APPLICABLE FOR DIALYSIS PATIENTS. B-TYPE NATRIURETIC FACTOR (BNP)2017-08-07 05:05:00 Test Item Value Reference Range Comments B-TYPE NATRIURETIC PEPTIDE (BEAKER) (test 1561 pg/mL 0-100 kdsc=384) CALCIUM, [id number] 04:58:00 Test Item Value Reference Range Comments CALCIUM IONIZED (BEAKER) (test ctdw=361) 1.04 mmol/L 1.12-1.27 PH, BLOOD (BEAKER) (test unvk=5676) 7.41 RETICULOCYTE [id number] 04:51:00 Test Item Value Reference Range Comments RETICULOCYTE COUNT PCT (BEAKER) (test rygj=833) 1.2 % 0.5-1.7 POCT-GLUCOSE [id number] 20:49:00 Test Item Value Reference Range Comments POC-GLUCOSE METER (BEAKER) 202 mg/dL 70-110 TESTED AT [facility] [address] [facility] (test lcds=6436) [facility] [address] CREATININE, RANDOM [id number] 18:38:00 Test Item Value Reference Range Comments CREATININE URINE (BEAKER) (test gtqa=606) 56.3 mg/dL Reference Range: No NormalsPROTEIN, RANDOM [id number] 18:38:00 Test Item Value Reference Range Comments PROTEIN, URINE (BEAKER) (test euxa=4117) 189 mg/dL 0-14 URINALYSIS W/ [id number] 18:34:00 Test Item Value Reference Range Comments COLOR (BEAKER) (test njwd=639) Light Yellow CLARITY (BEAKER) (test loxg=355) Hazy SPECIFIC GRAVITY UA (BEAKER) (test cphl=065) 1.008 1.001-1.035 PH UA (BEAKER) (test lmix=152) 5.5 5.0-8.0 PROTEIN UA (BEAKER) (test qnoq=410) 100 mg/dL Negative GLUCOSE UA (BEAKER) (test gaey=100) 30 mg/dL Negative KETONES UA (BEAKER) (test utps=243) Negative Negative BILIRUBIN UA (BEAKER) (test svss=793) Negative Negative BLOOD UA (BEAKER) (test rbou=830) Negative Negative NITRITE UA (BEAKER) (test cawz=293) Negative Negative LEUKOCYTE ESTERASE UA (BEAKER) (test wkxz=047) Negative Negative UROBILINOGEN UA (BEAKER) (test xswi=270) 0.2 mg/dL 0.2-1.0 RBC UA (BEAKER) (test oxgj=241) < /HPF WBC UA (BEAKER) (test vfmf=410) 2 /HPF BACTERIA (BEAKER) (test pwuw=033) Rare MUCUS (BEAKER) (test xynz=2398) Rare SQUAMOUS EPITHELIAL (BEAKER) (test zroa=708) 8 /HPF SOURCE(BEAKER) (test gdro=4636) Urine, Voided POCT-GLUCOSE [id number] 17:38:00 Test Item Value Reference Range Comments POC-GLUCOSE METER (BEAKER) 143 mg/dL 70-110 TESTED AT [address] (test ohwg=7133) [place] [address] POCT-GLUCOSE [id number] 12:30:00 Test Item Value Reference Range Comments POC-GLUCOSE METER (BEAKER) 218 mg/dL 70-110 TESTED AT [address] (test oycl=9282) [place] [address] POCT-GLUCOSE [id number] 08:00:00 Test Item Value Reference Range Comments POC-GLUCOSE METER (BEAKER) 134 mg/dL 70-110 TESTED AT [address] (test sthl=6593) [place] [address] CBC W/PLT COUNT & AUTO [id number] 04:23:00 Test Item Value Reference Range Comments WHITE BLOOD CELL COUNT (BEAKER) (test mych=394) 13.9 K/ L 3.5-10.5 RED BLOOD CELL COUNT (BEAKER) (test icja=184) 3.23 M/ L 3.93-5.22 HEMOGLOBIN (BEAKER) (test ltcz=251) 7.6 GM/DL 11.2-15.7 HEMATOCRIT (BEAKER) (test tbiq=333) 25.3 % 34.1-44.9 MEAN CORPUSCULAR VOLUME (BEAKER) (test mbqg=278) 78.3 fL 79.4-94.8 MEAN CORPUSCULAR HEMOGLOBIN (BEAKER) (test 23.5 pg 25.6-32.2 uoej=500) MEAN CORPUSCULAR HEMOGLOBIN CONC (BEAKER) (test 30.0 GM/DL 32.2-35.5 cmsy=768) RED CELL DISTRIBUTION WIDTH (BEAKER) (test 14.8 % 11.7-14.4 ngre=802) PLATELET COUNT (BEAKER) (test uzrg=697) 284 K/CU MM 150-450 MEAN PLATELET VOLUME (BEAKER) (test xzyy=329) 9.8 fL 9.4-12.3 NUCLEATED RED BLOOD CELLS (BEAKER) (test 0 /100 WBC 0-0 ruyy=117) NEUTROPHILS RELATIVE PERCENT (BEAKER) (test 77 % ettm=665) LYMPHOCYTES RELATIVE PERCENT (BEAKER) (test 16 % wuax=610) MONOCYTES RELATIVE PERCENT (BEAKER) (test 4 % gwat=355) EOSINOPHILS RELATIVE PERCENT (BEAKER) (test 2 % ryge=504) BASOPHILS RELATIVE PERCENT (BEAKER) (test 1 % glbq=281) NEUTROPHILS ABSOLUTE COUNT (BEAKER) (test 10.70 K/ L 1.56-6.13 cxwz=491) LYMPHOCYTES ABSOLUTE COUNT (BEAKER) (test 2.17 K/ L 1.18-3.74 zbhd=388) MONOCYTES ABSOLUTE COUNT (BEAKER) (test 0.57 K/ L 0.24-0.36 nxyx=139) EOSINOPHILS ABSOLUTE COUNT (BEAKER) (test 0.30 K/ L 0.04-0.36 ubro=891) BASOPHILS ABSOLUTE COUNT (BEAKER) (test 0.08 K/ L 0.01-0.08 tqbt=471) IMMATURE GRANULOCYTES-RELATIVE PERCENT (BEAKER) 1 % 0-1 (test tylq=5194) BASIC METABOLIC [id number] 04:13:00 Test Item Value Reference Range Comments SODIUM (BEAKER) (test 134 meq/L 136-145 taww=940) POTASSIUM (BEAKER) (test 4.6 meq/L 3.5-5.1 yzlh=581) CHLORIDE (BEAKER) (test 103 meq/L 98-107 qbdi=571) CO2 (BEAKER) (test 23 meq/L 22-29 lcvd=773) BLOOD UREA NITROGEN 43 mg/dL 7-21 (BEAKER) (test yiuv=491) CREATININE (BEAKER) (test 1.79 mg/dL 0.57-1.25 vkce=943) GLUCOSE RANDOM (BEAKER) 123 mg/dL 70-105 (test qrxm=027) CALCIUM (BEAKER) (test 8.1 mg/dL 8.4-10.2 weel=191) EGFR (BEAKER) (test 29 mL/min/1.73 sq m ESTIMATED GFR IS NOT rgqg=0577) ACCURATE CREATININE CLEARANCE IN PREDICTING GLOMERULAR FILTRATION RATE. ESTIMATED GFR IS NOT APPLICABLE FOR DIALYSIS PATIENTS. [id number] 04:10:00 Test Item Value Reference Range Comments PHOSPHORUS (BEAKER) (test evyh=609) 4.9 mg/dL 2.3-4.7 [id number] 04:10:00 Test Item Value Reference Range Comments MAGNESIUM (BEAKER) (test kwvw=135) 1.4 mg/dL 1.6-2.6 [id number] 04:08:00 Test Item Value Reference Range Comments FIBRINOGEN LEVEL (BEAKER) (test faqp=902) 548 mg/dl 225-434 [id number] 04:08:00 Test Item Value Reference Range Comments PARTIAL THROMBOPLASTIN TIME (BEAKER) (test 37.7 seconds 22.5-36.0 hnwx=483) PROTHROMBIN [id number] 04:07:00 Test Item Value Reference Range Comments PROTIME (BEAKER) (test piaz=613) 16.2 seconds 11.7-14.7 INR (BEAKER) (test cghh=148) 1.3 <=5.9 RECOMMENDED COUMADIN/WARFARIN INR THERAPY RANGESSTANDARD DOSE: 2.0 - 3.0 Includes: PROPHYLAXIS forvenous thrombosis, systemic embolization; TREATMENT for venous thrombosis and/or pulmonary embolus.HIGH RISK: Target INR is 2.5-3.5 for patients with mechanical heart valves.[id number] 16:59:00 Test Item Value Reference Range Comments ACTIVATED CLOTTING TIME 219 sec TESTED AT [facility] [address] (BEAKER) (test bzcl=514) [facility] [address] BASIC METABOLIC [id number] 14:25:00 Test Item Value Reference Range Comments SODIUM (BEAKER) (test 134 meq/L 136-145 ssii=327) POTASSIUM (BEAKER) (test 4.4 meq/L 3.5-5.1 gwft=395) CHLORIDE (BEAKER) (test 103 meq/L 98-107 huwi=844) CO2 (BEAKER) (test 22 meq/L 22-29 dscg=432) BLOOD UREA NITROGEN 46 mg/dL 7-21 (BEAKER) (test qkan=572) CREATININE (BEAKER) (test 2.16 mg/dL 0.57-1.25 ysjr=247) GLUCOSE RANDOM (BEAKER) 160 mg/dL 70-105 (test hcqk=329) CALCIUM (BEAKER) (test 7.8 mg/dL 8.4-10.2 xveh=560) EGFR (BEAKER) (test 23 mL/min/1.73 sq m ESTIMATED GFR IS NOT loje=9232) ACCURATE CREATININE CLEARANCE IN PREDICTING GLOMERULAR FILTRATION RATE. ESTIMATED GFR IS NOT APPLICABLE FOR DIALYSIS PATIENTS. POCT-GLUCOSE [id number] 13:21:00 Test Item Value Reference Range Comments POC-GLUCOSE METER (BEAKER) 170 mg/dL 70-110 TESTED AT [facility] [address] [facility] (test vjzl=8911) [facility] [address] POTASSIUM-STAT [id number] 13:20:00 Test Item Value Reference Range Comments POTASSIUM (BEAKER) (test izgk=488) 4.2 meq/L 3.6-5.5 SODIUM NA-STAT [id number] 13:20:00 Test Item Value Reference Range Comments SODIUM (BEAKER) (test dmta=016) 133 meq/L 135-148 HGB/HCT (H&H) - STAT [id number] 12:34:00 Test Item Value Reference Range Comments HEMOGLOBIN (BEAKER) (test uhcw=093) 10.8 g/dL 12.0-15.0 HEMATOCRIT (BEAKER) (test ekbf=953) 32.0 % 36.0-45.0 POTASSIUM-STAT [id number] 08:15:00 Test Item Value Reference Range Comments POTASSIUM (BEAKER) (test aeax=588) 4.1 meq/L 3.6-5.5 BLOOD GAS, [id number] 08:15:00 Test Item Value Reference Range Comments PH ARTERIAL (BEAKER) (test ktva=229) 7.36 7.35-7.45 PCO2 ARTERIAL (BEAKER) (test jmrc=899) 47 mmHg 35-45 PO2 ARTERIAL (BEAKER) (test btuq=490) 213 mmHg 80-90 O2 SATURATION ARTERIAL (BEAKER) (test dpbe=531) 99.4 % 96.0-97.0 HCO3 ARTERIAL (BEAKER) (test aurn=640) 26 mmol/L 21-29 BASE EXCESS ARTERIAL (BEAKER) (test ihtw=831) 0.3 mmol/L -2.0-3.0 PATIENT TEMPERATURE (BEAKER) (test wyjr=6049) 37.2 C FIO2 (BEAKER) (test jxfe=9864) 70.0 % SODIUM NA-STAT [id number] 08:15:00 Test Item Value Reference Range Comments SODIUM (BEAKER) (test pvmw=063) 130 meq/L 135-148 GLUCOSE-STAT [id number] 08:15:00 Test Item Value Reference Range Comments GLUCOSE RANDOM (BEAKER) (test tobw=944) 172 mg/dL 70-110 HGB/HCT (H&H) - STAT [id number] 08:15:00 Test Item Value Reference Range Comments HEMOGLOBIN (BEAKER) (test mlhe=951) 8.8 g/dL 12.0-15.0 HEMATOCRIT (BEAKER) (test mjgm=489) 26.0 % 36.0-45.0 BASIC METABOLIC [id number] 07:37:00 Test Item Value Reference Range Comments SODIUM (BEAKER) (test 135 meq/L 136-145 drhi=640) POTASSIUM (BEAKER) (test 4.4 meq/L 3.5-5.1 pkaa=285) CHLORIDE (BEAKER) (test 100 meq/L 98-107 cbnm=308) CO2 (BEAKER) (test 23 meq/L 22-29 oelz=462) BLOOD UREA NITROGEN 46 mg/dL 7-21 (BEAKER) (test ogwt=387) CREATININE (BEAKER) (test 1.98 mg/dL 0.57-1.25 klws=382) GLUCOSE RANDOM (BEAKER) 188 mg/dL 70-105 (test xlhe=339) CALCIUM (BEAKER) (test 8.9 mg/dL 8.4-10.2 zmbi=083) EGFR (BEAKER) (test 26 mL/min/1.73 sq m ESTIMATED GFR IS NOT xrkr=7558) ACCURATE CREATININE CLEARANCE IN PREDICTING GLOMERULAR FILTRATION RATE. ESTIMATED GFR IS NOT APPLICABLE FOR DIALYSIS PATIENTS. CBC W/PLT COUNT & AUTO [id number] 07:20:00 Test Item Value Reference Range Comments WHITE BLOOD CELL COUNT (BEAKER) (test vxbn=698) 20.2 K/ L 3.5-10.5 RED BLOOD CELL COUNT (BEAKER) (test wcqj=796) 3.86 M/ L 3.93-5.22 HEMOGLOBIN (BEAKER) (test ajyi=871) 9.1 GM/DL 11.2-15.7 HEMATOCRIT (BEAKER) (test jkpk=086) 29.4 % 34.1-44.9 MEAN CORPUSCULAR VOLUME (BEAKER) (test akdk=274) 76.2 fL 79.4-94.8 MEAN CORPUSCULAR HEMOGLOBIN (BEAKER) (test 23.6 pg 25.6-32.2 finp=944) MEAN CORPUSCULAR HEMOGLOBIN CONC (BEAKER) (test 31.0 GM/DL 32.2-35.5 kund=803) RED CELL DISTRIBUTION WIDTH (BEAKER) (test 14.9 % 11.7-14.4 uipv=739) PLATELET COUNT (BEAKER) (test cskk=499) 343 K/CU MM 150-450 MEAN PLATELET VOLUME (BEAKER) (test abom=952) 9.5 fL 9.4-12.3 NUCLEATED RED BLOOD CELLS (BEAKER) (test 0 /100 WBC 0-0 uqso=744) NEUTROPHILS RELATIVE PERCENT (BEAKER) (test 78 % uzyh=486) LYMPHOCYTES RELATIVE PERCENT (BEAKER) (test 15 % mwft=451) MONOCYTES RELATIVE PERCENT (BEAKER) (test 5 % ibfe=047) EOSINOPHILS RELATIVE PERCENT (BEAKER) (test 1 % rirm=124) BASOPHILS RELATIVE PERCENT (BEAKER) (test 1 % skmb=288) NEUTROPHILS ABSOLUTE COUNT (BEAKER) (test 15.70 K/ L 1.56-6.13 tjar=838) LYMPHOCYTES ABSOLUTE COUNT (BEAKER) (test 2.99 K/ L 1.18-3.74 cfjb=558) MONOCYTES ABSOLUTE COUNT (BEAKER) (test 0.93 K/ L 0.24-0.36 hzaw=842) EOSINOPHILS ABSOLUTE COUNT (BEAKER) (test 0.20 K/ L 0.04-0.36 jnvt=733) BASOPHILS ABSOLUTE COUNT (BEAKER) (test 0.12 K/ L 0.01-0.08 vlwe=125) IMMATURE GRANULOCYTES-RELATIVE PERCENT (BEAKER) 1 % 0-1 (test hetx=2291) POCT-GLUCOSE [id number] 07:03:00 Test Item Value Reference Range Comments POC-GLUCOSE METER (BEAKER) 186 mg/dL 70-110 TESTED AT [address] (test xuap=4526) [facility] [address] B-TYPE NATRIURETIC FACTOR (BNP)2017-06-10 12:44:00 Test Item Value Reference Range Comments B-TYPE NATRIURETIC PEPTIDE (BEAKER) (test 1264 pg/mL 0-100 lrpp=342) [id number] 12:36:00 Test Item Value Reference Range Comments MAGNESIUM (BEAKER) (test xpjw=495) 1.6 mg/dL 1.6-2.6 BASIC METABOLIC [id number] 12:36:00 Test Item Value Reference Range Comments SODIUM (BEAKER) (test 137 meq/L 136-145 pfuz=289) POTASSIUM (BEAKER) (test 5.4 meq/L 3.5-5.1 cyml=891) CHLORIDE (BEAKER) (test 108 meq/L 98-107 dyuy=869) CO2 (BEAKER) (test 21 meq/L 22-29 qpkj=140) BLOOD UREA NITROGEN 39 mg/dL 7-21 (BEAKER) (test iekh=296) CREATININE (BEAKER) (test 1.49 mg/dL 0.57-1.25 jobl=211) GLUCOSE RANDOM (BEAKER) 219 mg/dL 70-105 (test txwl=371) CALCIUM (BEAKER) (test 8.5 mg/dL 8.4-10.2 zzzm=686) EGFR (BEAKER) (test 35 mL/min/1.73 sq m ESTIMATED GFR IS NOT niem=6052) ACCURATE CREATININE CLEARANCE IN PREDICTING GLOMERULAR FILTRATION RATE. ESTIMATED GFR IS NOT APPLICABLE FOR DIALYSIS PATIENTS. POCT-GLUCOSE [id number] 12:04:00 Test Item Value Reference Range Comments POC-GLUCOSE METER (BEAKER) 274 mg/dL 70-110 TESTED AT [address] (test dvkz=4189) [facility] [address] POCT-GLUCOSE [id number] 07:21:00 Test Item Value Reference Range Comments POC-GLUCOSE METER (BEAKER) 137 mg/dL 70-110 TESTED AT [facility] [address] (test lqbt=4720) [facility] [address] BASIC METABOLIC [id number] 05:10:00 Test Item Value Reference Range Comments SODIUM (BEAKER) (test 137 meq/L 136-145 ctdu=053) POTASSIUM (BEAKER) (test 4.1 meq/L 3.5-5.1 kenb=977) CHLORIDE (BEAKER) (test 106 meq/L 98-107 opvb=728) CO2 (BEAKER) (test 24 meq/L 22-29 viez=351) BLOOD UREA NITROGEN 42 mg/dL 7-21 (BEAKER) (test honr=227) CREATININE (BEAKER) (test 1.64 mg/dL 0.57-1.25 affn=769) GLUCOSE RANDOM (BEAKER) 162 mg/dL 70-105 (test czua=145) CALCIUM (BEAKER) (test 8.1 mg/dL 8.4-10.2 hqbv=112) EGFR (BEAKER) (test 32 mL/min/1.73 sq m ESTIMATED GFR IS NOT asou=0813) ACCURATE CREATININE CLEARANCE IN PREDICTING GLOMERULAR FILTRATION RATE. ESTIMATED GFR IS NOT APPLICABLE FOR DIALYSIS PATIENTS. CBC (HEMOGRAM ONLY)2017-06-01 04:30:00 Test Item Value Reference Range Comments WHITE BLOOD CELL COUNT (BEAKER) (test oovt=615) 6.4 K/ L 3.5-10.5 RED BLOOD CELL COUNT (BEAKER) (test yoqb=644) 3.38 M/ L 3.93-5.22 HEMOGLOBIN (BEAKER) (test poig=241) 8.7 GM/DL 11.2-15.7 HEMATOCRIT (BEAKER) (test lpig=803) 28.2 % 34.1-44.9 MEAN CORPUSCULAR VOLUME (BEAKER) (test ekyn=442) 83.4 fL 79.4-94.8 MEAN CORPUSCULAR HEMOGLOBIN (BEAKER) (test 25.7 pg 25.6-32.2 ptkr=701) MEAN CORPUSCULAR HEMOGLOBIN CONC (BEAKER) (test 30.9 GM/DL 32.2-35.5 qkue=118) RED CELL DISTRIBUTION WIDTH (BEAKER) (test 15.2 % 11.7-14.4 xwym=305) PLATELET COUNT (BEAKER) (test hdfk=810) 320 K/CU MM 150-450 MEAN PLATELET VOLUME (BEAKER) (test egnh=000) 9.5 fL 9.4-12.3 NUCLEATED RED BLOOD CELLS (BEAKER) (test 0 /100 WBC 0-0 pesj=091) POCT-GLUCOSE [id number] 21:23:00 Test Item Value Reference Range Comments POC-GLUCOSE METER (BEAKER) 240 mg/dL 70-110 TESTED AT [address] (test yejj=8023) [facility] [address] POCT-GLUCOSE [id number] 16:42:00 Test Item Value Reference Range Comments POC-GLUCOSE METER (BEAKER) 234 mg/dL 70-110 TESTED AT [address] (test bgni=6477) [place] [id number] POCT-GLUCOSE [id number] 13:22:00 Test Item Value Reference Range Comments POC-GLUCOSE METER (BEAKER) 166 mg/dL 70-110 TESTED AT [address] (test sslg=2737) [facility] [address] RAD, CHEST, 1 VIEW, NON [id number] 09:43:00Reason for exam:->s/p ACBShould this be performed [...] Ring Verified Date/Time: 05/31/2017 09: 43:30 ReadingLocation: [facility] B1 [id number] Ortho Consult Reading Room POCT-GLUCOSE [id number] 06:57:00 Test Item Value Reference Range Comments POC-GLUCOSE METER (BEAKER) 136 mg/dL 70-110 TESTED AT [facility] [address] (test lmrg=1164) [facility] [address] CALCIUM, [id number] 06:41:00 Test Item Value Reference Range Comments CALCIUM IONIZED (BEAKER) (test xlpr=060) 1.10 mmol/L 1.12-1.27 PH, BLOOD (BEAKER) (test xowp=6882) 7.42 [id number] 06:17:00 Test Item Value Reference Range Comments PHOSPHORUS (BEAKER) (test tyvr=306) 3.3 mg/dL 2.3-4.7 [id number] 06:17:00 Test Item Value Reference Range Comments MAGNESIUM (BEAKER) (test gpqt=761) 1.8 mg/dL 1.6-2.6 BASIC METABOLIC [id number] 06:17:00 Test Item Value Reference Range Comments SODIUM (BEAKER) (test 131 meq/L 136-145 uzhw=088) POTASSIUM (BEAKER) (test 4.5 meq/L 3.5-5.1 rnff=752) CHLORIDE (BEAKER) (test 103 meq/L 98-107 hikm=424) CO2 (BEAKER) (test 21 meq/L 22-29 fhwp=062) BLOOD UREA NITROGEN 43 mg/dL 7-21 (BEAKER) (test fnyu=315) CREATININE (BEAKER) (test 1.74 mg/dL 0.57-1.25 gmep=261) GLUCOSE RANDOM (BEAKER) 126 mg/dL 70-105 (test ygmn=904) CALCIUM (BEAKER) (test 8.1 mg/dL 8.4-10.2 usxx=504) EGFR (BEAKER) (test 30 mL/min/1.73 sq m ESTIMATED GFR IS NOT qhlo=3463) ACCURATE CREATININE CLEARANCE IN PREDICTING GLOMERULAR FILTRATION RATE. ESTIMATED GFR IS NOT APPLICABLE FOR DIALYSIS PATIENTS. CBC W/PLT COUNT & AUTO [id number] 05:07:00 Test Item Value Reference Range Comments WHITE BLOOD CELL COUNT (BEAKER) (test jbqw=987) 5.9 K/ L 3.5-10.5 RED BLOOD CELL COUNT (BEAKER) (test whqd=445) 3.16 M/ L 3.93-5.22 HEMOGLOBIN (BEAKER) (test zqes=315) 8.2 GM/DL 11.2-15.7 HEMATOCRIT (BEAKER) (test mifl=506) 26.6 % 34.1-44.9 MEAN CORPUSCULAR VOLUME (BEAKER) (test gvga=969) 84.2 fL 79.4-94.8 MEAN CORPUSCULAR HEMOGLOBIN (BEAKER) (test 25.9 pg 25.6-32.2 fwxe=547) MEAN CORPUSCULAR HEMOGLOBIN CONC (BEAKER) (test 30.8 GM/DL 32.2-35.5 xsoh=054) RED CELL DISTRIBUTION WIDTH (BEAKER) (test 15.1 % 11.7-14.4 qoxr=565) PLATELET COUNT (BEAKER) (test mczq=959) 320 K/CU MM 150-450 MEAN PLATELET VOLUME (BEAKER) (test ekkm=117) 9.6 fL 9.4-12.3 NUCLEATED RED BLOOD CELLS (BEAKER) (test 0 /100 WBC 0-0 eqyr=024) NEUTROPHILS RELATIVE PERCENT (BEAKER) (test 65 % asby=448) LYMPHOCYTES RELATIVE PERCENT (BEAKER) (test 24 % mcqt=946) MONOCYTES RELATIVE PERCENT (BEAKER) (test 8 % bytl=663) EOSINOPHILS RELATIVE PERCENT (BEAKER) (test 2 % xtkr=983) BASOPHILS RELATIVE PERCENT (BEAKER) (test 1 % zisx=818) NEUTROPHILS ABSOLUTE COUNT (BEAKER) (test 3.84 K/ L 1.56-6.13 jilv=516) LYMPHOCYTES ABSOLUTE COUNT (BEAKER) (test 1.41 K/ L 1.18-3.74 nzpa=254) MONOCYTES ABSOLUTE COUNT (BEAKER) (test 0.47 K/ L 0.24-0.36 cajj=585) EOSINOPHILS ABSOLUTE COUNT (BEAKER) (test 0.11 K/ L 0.04-0.36 vbrn=854) BASOPHILS ABSOLUTE COUNT (BEAKER) (test 0.05 K/ L 0.01-0.08 wbvy=102) IMMATURE GRANULOCYTES-RELATIVE PERCENT (BEAKER) 1 % 0-1 (test fsgh=8852) POCT-GLUCOSE [id number] 20:56:00 Test Item Value Reference Range Comments POC-GLUCOSE METER (BEAKER) 196 mg/dL 70-110 TESTED AT [facility] [address] [facility] (test xgzu=1648) [facility] [address] POCT-GLUCOSE [id number] 16:42:00 Test Item Value Reference Range Comments POC-GLUCOSE METER (BEAKER) 196 mg/dL 70-110 TESTED AT [facility] [address] [facility] (test ubkw=9882) [facility] [address] POCT-GLUCOSE [id number] 11:45:00 Test Item Value Reference Range Comments POC-GLUCOSE METER (BEAKER) 215 mg/dL 70-110 TESTED AT [place] [id number] [facility] (test nhtj=5080) [place] [id number] RAD, CHEST, 1 VIEW, NON [id number] 11:15:00Reason for exam:->s/p ACBShould this be performed at the bedside?->YesFINAL REPORT Chest one view compared to May 28, 2017 Discussion: Airspace opacities are seen in both lower lung regions, probably atelectasis. Correlate clinically for infection. I could not exclude small effusions. No pneumothorax. Upper lungs clear. Signed: Jeannette Nava Verified Date/Time: 2017 11:15:07 Reading Location: [facility] Radiology Reading Room CALCIUM, [id number] 09:21:00 Test Item Value Reference Range Comments CALCIUM IONIZED (BEAKER) (test ydwr=460) 1.11 mmol/L 1.12-1.27 PH, BLOOD (BEAKER) (test fvjs=8850) 7.36 BASIC METABOLIC [id number] 07:37:00 Test Item Value Reference Range Comments SODIUM (BEAKER) (test 135 meq/L 136-145 pyzd=202) POTASSIUM (BEAKER) (test 4.9 meq/L 3.5-5.1 muim=943) CHLORIDE (BEAKER) (test 105 meq/L 98-107 mikf=086) CO2 (BEAKER) (test 25 meq/L 22-29 onyl=433) BLOOD UREA NITROGEN 44 mg/dL 7-21 (BEAKER) (test obnw=710) CREATININE (BEAKER) (test 1.76 mg/dL 0.57-1.25 hzle=950) GLUCOSE RANDOM (BEAKER) 136 mg/dL 70-105 (test nadi=052) CALCIUM (BEAKER) (test 8.2 mg/dL 8.4-10.2 lwrc=760) EGFR (BEAKER) (test 29 mL/min/1.73 sq m ESTIMATED GFR IS NOT zxel=7788) ACCURATE CREATININE CLEARANCE IN PREDICTING GLOMERULAR FILTRATION RATE. ESTIMATED GFR IS NOT APPLICABLE FOR DIALYSIS PATIENTS. [id number] 07:28:00 Test Item Value Reference Range Comments PHOSPHORUS (BEAKER) (test xati=874) 3.8 mg/dL 2.3-4.7 [id number] 07:28:00 Test Item Value Reference Range Comments MAGNESIUM (BEAKER) (test gpwn=171) 1.9 mg/dL 1.6-2.6 CBC W/PLT COUNT & AUTO [id number] 07:26:00 Test Item Value Reference Range Comments WHITE BLOOD CELL COUNT (BEAKER) (test nbhc=008) 6.3 K/ L 3.5-10.5 RED BLOOD CELL COUNT (BEAKER) (test eupw=845) 3.32 M/ L 3.93-5.22 HEMOGLOBIN (BEAKER) (test mice=312) 8.5 GM/DL 11.2-15.7 HEMATOCRIT (BEAKER) (test xkxl=594) 27.8 % 34.1-44.9 MEAN CORPUSCULAR VOLUME (BEAKER) (test wxel=596) 83.7 fL 79.4-94.8 MEAN CORPUSCULAR HEMOGLOBIN (BEAKER) (test 25.6 pg 25.6-32.2 ztcn=968) MEAN CORPUSCULAR HEMOGLOBIN CONC (BEAKER) (test 30.6 GM/DL 32.2-35.5 umce=381) RED CELL DISTRIBUTION WIDTH (BEAKER) (test 15.0 % 11.7-14.4 odzn=771) PLATELET COUNT (BEAKER) (test tycz=563) 336 K/CU MM 150-450 MEAN PLATELET VOLUME (BEAKER) (test arnx=660) 9.8 fL 9.4-12.3 NUCLEATED RED BLOOD CELLS (BEAKER) (test 0 /100 WBC 0-0 hcpf=352) NEUTROPHILS RELATIVE PERCENT (BEAKER) (test 65 % xbgh=995) LYMPHOCYTES RELATIVE PERCENT (BEAKER) (test 24 % npjd=834) MONOCYTES RELATIVE PERCENT (BEAKER) (test 7 % bdvs=886) EOSINOPHILS RELATIVE PERCENT (BEAKER) (test 3 % nczr=824) BASOPHILS RELATIVE PERCENT (BEAKER) (test 0 % kskq=937) NEUTROPHILS ABSOLUTE COUNT (BEAKER) (test 4.13 K/ L 1.56-6.13 oddf=660) LYMPHOCYTES ABSOLUTE COUNT (BEAKER) (test 1.50 K/ L 1.18-3.74 xvpv=879) MONOCYTES ABSOLUTE COUNT (BEAKER) (test 0.44 K/ L 0.24-0.36 wcwy=315) EOSINOPHILS ABSOLUTE COUNT (BEAKER) (test 0.20 K/ L 0.04-0.36 lcko=086) BASOPHILS ABSOLUTE COUNT (BEAKER) (test 0.02 K/ L 0.01-0.08 tpdv=440) IMMATURE GRANULOCYTES-RELATIVE PERCENT (BEAKER) 1 % 0-1 (test tzwq=4860) POCT-GLUCOSE [id number] 07:21:00 Test Item Value Reference Range Comments POC-GLUCOSE METER (BEAKER) 146 mg/dL 70-110 TESTED AT [address] (test ceoe=2247) [place] [id number] POCT-GLUCOSE [id number] 22:02:00 Test Item Value Reference Range Comments POC-GLUCOSE METER (BEAKER) 201 mg/dL 70-110 TESTED AT [address] (test hpgz=0539) [place] [id number] POCT-GLUCOSE [id number] 18:27:00 Test Item Value Reference Range Comments POC-GLUCOSE METER (BEAKER) 240 mg/dL 70-110 TESTED AT [address] (test yqrj=0608) [place] [id number] POCT-GLUCOSE [id number] 12:13:00 Test Item Value Reference Range Comments POC-GLUCOSE METER (BEAKER) 193 mg/dL 70-110 TESTED AT [address] (test dxod=6170) [place] [address] POCT-GLUCOSE [id number] 09:02:00 Test Item Value Reference Range Comments POC-GLUCOSE METER (BEAKER) 132 mg/dL 70-110 TESTED AT [address] (test xotx=2607) [place] [address] CALCIUM, [id number] 05:42:00 Test Item Value Reference Range Comments CALCIUM IONIZED (BEAKER) (test axck=831) 1.12 mmol/L 1.12-1.27 PH, BLOOD (BEAKER) (test kbli=5245) 7.34 COMPREHENSIVE METABOLIC [id number] 05:33:00 Test Item Value Reference Range Comments TOTAL PROTEIN (BEAKER) 5.9 gm/dL 6.0-8.3 (test jnvj=602) ALBUMIN (BEAKER) (test 2.7 g/dL 3.5-5.0 hxdw=6342) ALKALINE PHOSPHATASE 130 U/L 40-150 (BEAKER) (test molv=870) BILIRUBIN TOTAL (BEAKER) 0.3 mg/dL 0.2-1.2 (test fvtz=857) SODIUM (BEAKER) (test 135 meq/L 136-145 nqeh=773) POTASSIUM (BEAKER) (test 4.7 meq/L 3.5-5.1 sduk=992) CHLORIDE (BEAKER) (test 105 meq/L 98-107 elcz=617) CO2 (BEAKER) (test 24 meq/L 22-29 rxsa=498) BLOOD UREA NITROGEN 42 mg/dL 7-21 (BEAKER) (test dgng=598) CREATININE (BEAKER) (test 1.78 mg/dL 0.57-1.25 gqwc=640) GLUCOSE RANDOM (BEAKER) 129 mg/dL 70-105 (test rnst=991) CALCIUM (BEAKER) (test 8.5 mg/dL 8.4-10.2 qprs=836) AST (SGOT) (BEAKER) (test 23 U/L 5-34 lpou=604) ALT (SGPT) (BEAKER) (test 15 U/L 6-55 fsva=833) EGFR (BEAKER) (test 29 mL/min/1.73 sq m ESTIMATED GFR IS NOT cfla=0782) ACCURATE CREATININE CLEARANCE IN PREDICTING GLOMERULAR FILTRATION RATE. ESTIMATED GFR IS NOT APPLICABLE FOR DIALYSIS PATIENTS. [id number] 05:32:00 Test Item Value Reference Range Comments PHOSPHORUS (BEAKER) (test czbm=786) 3.6 mg/dL 2.3-4.7 [id number] 05:32:00 Test Item Value Reference Range Comments MAGNESIUM (BEAKER) (test wubv=473) 2.2 mg/dL 1.6-2.6 CBC W/PLT COUNT & AUTO [id number] 05:01:00 Test Item Value Reference Range Comments WHITE BLOOD CELL COUNT (BEAKER) (test jova=318) 6.4 K/ L 3.5-10.5 RED BLOOD CELL COUNT (BEAKER) (test awng=321) 3.43 M/ L 3.93-5.22 HEMOGLOBIN (BEAKER) (test bnyu=935) 8.9 GM/DL 11.2-15.7 HEMATOCRIT (BEAKER) (test jycb=166) 28.9 % 34.1-44.9 MEAN CORPUSCULAR VOLUME (BEAKER) (test rpsf=188) 84.3 fL 79.4-94.8 MEAN CORPUSCULAR HEMOGLOBIN (BEAKER) (test 25.9 pg 25.6-32.2 eeou=510) MEAN CORPUSCULAR HEMOGLOBIN CONC (BEAKER) (test 30.8 GM/DL 32.2-35.5 paar=319) RED CELL DISTRIBUTION WIDTH (BEAKER) (test 15.0 % 11.7-14.4 dhnp=232) PLATELET COUNT (BEAKER) (test pdop=281) 324 K/CU MM 150-450 MEAN PLATELET VOLUME (BEAKER) (test qfbw=859) 9.3 fL 9.4-12.3 NUCLEATED RED BLOOD CELLS (BEAKER) (test 0 /100 WBC 0-0 zvmq=877) NEUTROPHILS RELATIVE PERCENT (BEAKER) (test 62 % gvpl=040) LYMPHOCYTES RELATIVE PERCENT (BEAKER) (test 25 % btty=502) MONOCYTES RELATIVE PERCENT (BEAKER) (test 8 % jlfd=574) EOSINOPHILS RELATIVE PERCENT (BEAKER) (test 4 % kqcr=414) BASOPHILS RELATIVE PERCENT (BEAKER) (test 1 % cyiw=296) NEUTROPHILS ABSOLUTE COUNT (BEAKER) (test 3.93 K/ L 1.56-6.13 mrem=904) LYMPHOCYTES ABSOLUTE COUNT (BEAKER) (test 1.60 K/ L 1.18-3.74 ewgp=688) MONOCYTES ABSOLUTE COUNT (BEAKER) (test 0.51 K/ L 0.24-0.36 mdrw=652) EOSINOPHILS ABSOLUTE COUNT (BEAKER) (test 0.25 K/ L 0.04-0.36 uekk=764) BASOPHILS ABSOLUTE COUNT (BEAKER) (test 0.03 K/ L 0.01-0.08 cfld=896) IMMATURE GRANULOCYTES-RELATIVE PERCENT (BEAKER) 1 % 0-1 (test agjc=6876) POCT-GLUCOSE [id number] 21:04:00 Test Item Value Reference Range Comments POC-GLUCOSE METER (BEAKER) 165 mg/dL 70-110 TESTED AT [address] (test phpr=0186) [facility] [address] POCT-GLUCOSE [id number] 17:30:00 Test Item Value Reference Range Comments POC-GLUCOSE METER (BEAKER) 236 mg/dL 70-110 TESTED AT [address] (test qkvr=6813) [facility] [address] RAD, CHEST, 1 VIEW, NON [id number] 13:53:00Reason for exam:->assess for ill-defined opacityShould this [...] [place] Verified Date/Time: 05/28/2017 13:53:03 Reading Location: [address] Radiology Reading Room Electronically signed by: LUIS ALBERTO CALLAWAY M.D. on 01:53 PMPOCT-GLUCOSE [id number] 11:53:00 Test Item Value Reference Range Comments POC-GLUCOSE METER (BEAKER) 215 mg/dL 70-110 TESTED AT [address] (test oqyn=0655) [facility] [address] POCT-GLUCOSE [id number] 08:32:00 Test Item Value Reference Range Comments POC-GLUCOSE METER (BEAKER) 168 mg/dL 70-110 TESTED AT [address] (test ifyf=1650) [facility] [address] CALCIUM, [id number] 05:44:00 Test Item Value Reference Range Comments CALCIUM IONIZED (BEAKER) (test vjhg=328) 1.09 mmol/L 1.12-1.27 PH, BLOOD (BEAKER) (test imsm=8066) 7.38 [id number] 05:44:00 Test Item Value Reference Range Comments PHOSPHORUS (BEAKER) (test futr=453) 3.5 mg/dL 2.3-4.7 [id number] 05:44:00 Test Item Value Reference Range Comments MAGNESIUM (BEAKER) (test tafm=955) 1.9 mg/dL 1.6-2.6 BASIC METABOLIC [id number] 05:44:00 Test Item Value Reference Range Comments SODIUM (BEAKER) (test 137 meq/L 136-145 wrjc=554) POTASSIUM (BEAKER) (test 4.5 meq/L 3.5-5.1 qmbj=463) CHLORIDE (BEAKER) (test 108 meq/L 98-107 fgyd=313) CO2 (BEAKER) (test 23 meq/L 22-29 lyuf=309) BLOOD UREA NITROGEN 41 mg/dL 7-21 (BEAKER) (test khsn=487) CREATININE (BEAKER) (test 1.41 mg/dL 0.57-1.25 gzau=209) GLUCOSE RANDOM (BEAKER) 113 mg/dL 70-105 (test fdeq=685) CALCIUM (BEAKER) (test 8.1 mg/dL 8.4-10.2 bbyk=418) EGFR (BEAKER) (test 38 mL/min/1.73 sq m ESTIMATED GFR IS NOT qmat=3690) ACCURATE CREATININE CLEARANCE IN PREDICTING GLOMERULAR FILTRATION RATE. ESTIMATED GFR IS NOT APPLICABLE FOR DIALYSIS PATIENTS. CBC W/PLT COUNT & AUTO [id number] 05:05:00 Test Item Value Reference Range Comments WHITE BLOOD CELL COUNT (BEAKER) (test ligz=058) 6.3 K/ L 3.5-10.5 RED BLOOD CELL COUNT (BEAKER) (test ciui=036) 3.40 M/ L 3.93-5.22 HEMOGLOBIN (BEAKER) (test hqwz=268) 8.8 GM/DL 11.2-15.7 HEMATOCRIT (BEAKER) (test bbpr=912) 29.0 % 34.1-44.9 MEAN CORPUSCULAR VOLUME (BEAKER) (test qvks=510) 85.3 fL 79.4-94.8 MEAN CORPUSCULAR HEMOGLOBIN (BEAKER) (test 25.9 pg 25.6-32.2 vqok=942) MEAN CORPUSCULAR HEMOGLOBIN CONC (BEAKER) (test 30.3 GM/DL 32.2-35.5 hrrm=017) RED CELL DISTRIBUTION WIDTH (BEAKER) (test 14.9 % 11.7-14.4 qcjl=297) PLATELET COUNT (BEAKER) (test xdkr=021) 282 K/CU MM 150-450 MEAN PLATELET VOLUME (BEAKER) (test rutp=369) 9.5 fL 9.4-12.3 NUCLEATED RED BLOOD CELLS (BEAKER) (test 0 /100 WBC 0-0 czdf=461) NEUTROPHILS RELATIVE PERCENT (BEAKER) (test 59 % dyps=027) LYMPHOCYTES RELATIVE PERCENT (BEAKER) (test 28 % hmqx=310) MONOCYTES RELATIVE PERCENT (BEAKER) (test 7 % ditu=186) EOSINOPHILS RELATIVE PERCENT (BEAKER) (test 4 % stij=059) BASOPHILS RELATIVE PERCENT (BEAKER) (test 1 % kqnq=017) NEUTROPHILS ABSOLUTE COUNT (BEAKER) (test 3.75 K/ L 1.56-6.13 xjux=065) LYMPHOCYTES ABSOLUTE COUNT (BEAKER) (test 1.80 K/ L 1.18-3.74 datv=671) MONOCYTES ABSOLUTE COUNT (BEAKER) (test 0.45 K/ L 0.24-0.36 dmjt=167) EOSINOPHILS ABSOLUTE COUNT (BEAKER) (test 0.25 K/ L 0.04-0.36 piee=127) BASOPHILS ABSOLUTE COUNT (BEAKER) (test 0.05 K/ L 0.01-0.08 addz=134) IMMATURE GRANULOCYTES-RELATIVE PERCENT (BEAKER) 1 % 0-1 (test fcwy=9245) POCT-GLUCOSE [id number] 21:03:00 Test Item Value Reference Range Comments POC-GLUCOSE METER (BEAKER) 173 mg/dL 70-110 TESTED AT [address] (test umnn=0811) [place] [id number] 18:15:00 Test Item Value Reference Range Comments ACTIVATED CLOTTING TIME 147 sec TESTED AT [address] (BEAKER) (test upiz=582) [place] [address] [id number] 18:15:00 Test Item Value Reference Range Comments ACTIVATED CLOTTING TIME 246 sec TESTED AT [place] [address] [place] (BEAKER) (test cqtd=608) [place] [address] POCT-GLUCOSE [id number] 12:39:00 Test Item Value Reference Range Comments POC-GLUCOSE METER (BEAKER) 219 mg/dL 70-110 TESTED AT [address] (test sohj=4752) [place] [address] RAD, CHEST, 1 VIEW, NON [id number] 10:11:00Reason for exam:->pl effusionShould this be performed at the bedside?->YesFINAL REPORT Chest one view compared to May 26 Discussion: There is cardiac prominence. Upper lungs are clear. Ill-defined basilar densities are similar probably atelectasis. No gross effusion or pneumothorax with bilateral chest tubes in place. Signed: Jeannette Nava Verified Date/Time: 2017 10:11:44 Reading Location: [facility] Radiology Reading Room POCT- GLUCOSE [id number] 07:05:00 Test Item Value Reference Range Comments POC-GLUCOSE METER (BEAKER) 167 mg/dL 70-110 TESTED AT [address] (test mpvo=1430) [place] [address] CALCIUM, [id number] 06:20:00 Test Item Value Reference Range Comments CALCIUM IONIZED (BEAKER) (test iyxj=855) 0.98 mmol/L 1.12-1.27 PH, BLOOD (BEAKER) (test kyba=2069) 7.50 [id number] 04:56:00 Test Item Value Reference Range Comments PHOSPHORUS (BEAKER) (test ptpu=335) 2.6 mg/dL 2.3-4.7 [id number] 04:56:00 Test Item Value Reference Range Comments MAGNESIUM (BEAKER) (test jpjk=133) 2.0 mg/dL 1.6-2.6 BASIC METABOLIC [id number] 04:56:00 Test Item Value Reference Range Comments SODIUM (BEAKER) (test 135 meq/L 136-145 kxem=086) POTASSIUM (BEAKER) (test 4.5 meq/L 3.5-5.1 klin=459) CHLORIDE (BEAKER) (test 105 meq/L 98-107 kyhw=568) CO2 (BEAKER) (test 22 meq/L 22-29 lrsy=218) BLOOD UREA NITROGEN 47 mg/dL 7-21 (BEAKER) (test zjtd=262) CREATININE (BEAKER) (test 1.44 mg/dL 0.57-1.25 ovee=864) GLUCOSE RANDOM (BEAKER) 177 mg/dL 70-105 (test kmef=935) CALCIUM (BEAKER) (test 8.0 mg/dL 8.4-10.2 xrxw=501) EGFR (BEAKER) (test 37 mL/min/1.73 sq m ESTIMATED GFR IS NOT fkhc=9199) ACCURATE CREATININE CLEARANCE IN PREDICTING GLOMERULAR FILTRATION RATE. ESTIMATED GFR IS NOT APPLICABLE FOR DIALYSIS PATIENTS. CBC W/PLT COUNT & AUTO [id number] 04:36:00 Test Item Value Reference Range Comments WHITE BLOOD CELL COUNT (BEAKER) (test uzat=659) 6.1 K/ L 3.5-10.5 RED BLOOD CELL COUNT (BEAKER) (test flke=714) 3.35 M/ L 3.93-5.22 HEMOGLOBIN (BEAKER) (test mobt=376) 8.6 GM/DL 11.2-15.7 HEMATOCRIT (BEAKER) (test ppfj=797) 28.0 % 34.1-44.9 MEAN CORPUSCULAR VOLUME (BEAKER) (test gnyv=153) 83.6 fL 79.4-94.8 MEAN CORPUSCULAR HEMOGLOBIN (BEAKER) (test 25.7 pg 25.6-32.2 jtoe=174) MEAN CORPUSCULAR HEMOGLOBIN CONC (BEAKER) (test 30.7 GM/DL 32.2-35.5 htyb=700) RED CELL DISTRIBUTION WIDTH (BEAKER) (test 14.7 % 11.7-14.4 rlql=149) PLATELET COUNT (BEAKER) (test vsuy=928) 280 K/CU MM 150-450 MEAN PLATELET VOLUME (BEAKER) (test tvqo=260) 9.9 fL 9.4-12.3 NUCLEATED RED BLOOD CELLS (BEAKER) (test 0 /100 WBC 0-0 pgow=343) NEUTROPHILS RELATIVE PERCENT (BEAKER) (test 65 % snxc=263) LYMPHOCYTES RELATIVE PERCENT (BEAKER) (test 23 % ikqc=603) MONOCYTES RELATIVE PERCENT (BEAKER) (test 7 % dvlq=470) EOSINOPHILS RELATIVE PERCENT (BEAKER) (test 4 % rajv=016) BASOPHILS RELATIVE PERCENT (BEAKER) (test 1 % rrem=810) NEUTROPHILS ABSOLUTE COUNT (BEAKER) (test 3.97 K/ L 1.56-6.13 pkrh=013) LYMPHOCYTES ABSOLUTE COUNT (BEAKER) (test 1.41 K/ L 1.18-3.74 ibze=180) MONOCYTES ABSOLUTE COUNT (BEAKER) (test 0.44 K/ L 0.24-0.36 jznh=507) EOSINOPHILS ABSOLUTE COUNT (BEAKER) (test 0.22 K/ L 0.04-0.36 eqmk=984) BASOPHILS ABSOLUTE COUNT (BEAKER) (test 0.05 K/ L 0.01-0.08 hiph=368) IMMATURE GRANULOCYTES-RELATIVE PERCENT (BEAKER) 1 % 0-1 (test upam=4461) POCT-GLUCOSE [id number] 21:29:00 Test Item Value Reference Range Comments POC-GLUCOSE METER (BEAKER) 147 mg/dL 70-110 TESTED AT [address] (test xlzy=6909) [place] [id number] POCT-GLUCOSE [id number] 17:51:00 Test Item Value Reference Range Comments POC-GLUCOSE METER (BEAKER) 224 mg/dL 70-110 TESTED AT [address] (test nfvu=8007) [place] [address] POCT-GLUCOSE [id number] 13:53:00 Test Item Value Reference Range Comments POC-GLUCOSE METER (BEAKER) 182 mg/dL 70-110 TESTED AT [address] (test fest=4722) [place] [address] RAD, CHEST, 1 VIEW, NON [id number] 08:44:00Reason for exam:->pl effusionShould this be performed [...] tube. No other significant change. Signed: Gene Rmairez MDReport Verified Date/Time : 05/26/2017 08:44:25 Reading Location: [address] Radiology Reading Room POCT- GLUCOSE [id number] 07:43:00 Test Item Value Reference Range Comments POC-GLUCOSE METER (BEAKER) 113 mg/dL 70-110 TESTED AT [facility] [address] [facility] (test anvj=6774) [facility] [address] CALCIUM, [id number] 06:31:00 Test Item Value Reference Range Comments CALCIUM IONIZED (BEAKER) (test gxqs=722) 1.07 mmol/L 1.12-1.27 PH, BLOOD (BEAKER) (test xeuk=0473) 7.38 [id number] 04:51:00 Test Item Value Reference Range Comments PHOSPHORUS (BEAKER) (test zpgr=629) 3.2 mg/dL 2.3-4.7 [id number] 04:51:00 Test Item Value Reference Range Comments MAGNESIUM (BEAKER) (test ddps=559) 2.1 mg/dL 1.6-2.6 BASIC METABOLIC [id number] 04:51:00 Test Item Value Reference Range Comments SODIUM (BEAKER) (test 139 meq/L 136-145 upyw=630) POTASSIUM (BEAKER) (test 4.1 meq/L 3.5-5.1 bbrz=539) CHLORIDE (BEAKER) (test 106 meq/L 98-107 xlfe=307) CO2 (BEAKER) (test 24 meq/L 22-29 ijpa=840) BLOOD UREA NITROGEN 52 mg/dL 7-21 (BEAKER) (test wfkh=501) CREATININE (BEAKER) (test 1.52 mg/dL 0.57-1.25 pugd=410) GLUCOSE RANDOM (BEAKER) 108 mg/dL 70-105 (test jrkc=640) CALCIUM (BEAKER) (test 8.4 mg/dL 8.4-10.2 hzrl=631) EGFR (BEAKER) (test 35 mL/min/1.73 sq m ESTIMATED GFR IS NOT ufgj=8368) ACCURATE CREATININE CLEARANCE IN PREDICTING GLOMERULAR FILTRATION RATE. ESTIMATED GFR IS NOT APPLICABLE FOR DIALYSIS PATIENTS. CBC W/PLT COUNT & AUTO [id number] 04:27:00 Test Item Value Reference Range Comments WHITE BLOOD CELL COUNT (BEAKER) (test hksx=730) 7.2 K/ L 3.5-10.5 RED BLOOD CELL COUNT (BEAKER) (test njvi=633) 3.53 M/ L 3.93-5.22 HEMOGLOBIN (BEAKER) (test sazo=035) 9.1 GM/DL 11.2-15.7 HEMATOCRIT (BEAKER) (test zkjx=143) 29.5 % 34.1-44.9 MEAN CORPUSCULAR VOLUME (BEAKER) (test gkfi=488) 83.6 fL 79.4-94.8 MEAN CORPUSCULAR HEMOGLOBIN (BEAKER) (test 25.8 pg 25.6-32.2 yvbz=707) MEAN CORPUSCULAR HEMOGLOBIN CONC (BEAKER) (test 30.8 GM/DL 32.2-35.5 nrop=331) RED CELL DISTRIBUTION WIDTH (BEAKER) (test 14.6 % 11.7-14.4 gicm=743) PLATELET COUNT (BEAKER) (test hlje=864) 296 K/CU MM 150-450 MEAN PLATELET VOLUME (BEAKER) (test qfly=417) 9.5 fL 9.4-12.3 NUCLEATED RED BLOOD CELLS (BEAKER) (test 0 /100 WBC 0-0 afpu=228) NEUTROPHILS RELATIVE PERCENT (BEAKER) (test 67 % emis=893) LYMPHOCYTES RELATIVE PERCENT (BEAKER) (test 21 % zkmb=780) MONOCYTES RELATIVE PERCENT (BEAKER) (test 7 % rbdi=573) EOSINOPHILS RELATIVE PERCENT (BEAKER) (test 4 % ynzm=082) BASOPHILS RELATIVE PERCENT (BEAKER) (test 1 % oqqk=296) NEUTROPHILS ABSOLUTE COUNT (BEAKER) (test 4.79 K/ L 1.56-6.13 pyfj=107) LYMPHOCYTES ABSOLUTE COUNT (BEAKER) (test 1.49 K/ L 1.18-3.74 nfcd=750) MONOCYTES ABSOLUTE COUNT (BEAKER) (test 0.50 K/ L 0.24-0.36 qvpj=006) EOSINOPHILS ABSOLUTE COUNT (BEAKER) (test 0.30 K/ L 0.04-0.36 fcse=809) BASOPHILS ABSOLUTE COUNT (BEAKER) (test 0.05 K/ L 0.01-0.08 nvhd=857) IMMATURE GRANULOCYTES-RELATIVE PERCENT (BEAKER) 0 % 0-1 (test glqa=5833) POCT-GLUCOSE [id number] 23:48:00 Test Item Value Reference Range Comments POC-GLUCOSE METER (BEAKER) 123 mg/dL 70-110 TESTED AT [address] (test mpqk=1565) [place] [address] POCT-GLUCOSE [id number] 16:46:00 Test Item Value Reference Range Comments POC-GLUCOSE METER (BEAKER) 178 mg/dL 70-110 TESTED AT [address] (test zbaq=1644) [place] [address] BASIC METABOLIC [id number] 05:53:00 Test Item Value Reference Range Comments SODIUM (BEAKER) (test 139 meq/L 136-145 axqf=138) POTASSIUM (BEAKER) (test 3.9 meq/L 3.5-5.1 mxcy=901) CHLORIDE (BEAKER) (test 106 meq/L 98-107 wvrm=356) CO2 (BEAKER) (test 23 meq/L 22-29 empp=652) BLOOD UREA NITROGEN 62 mg/dL 7-21 (BEAKER) (test hfgp=533) CREATININE (BEAKER) (test 2.05 mg/dL 0.57-1.25 udos=752) GLUCOSE RANDOM (BEAKER) 87 mg/dL 70-105 (test osbr=063) CALCIUM (BEAKER) (test 7.9 mg/dL 8.4-10.2 eryn=802) EGFR (BEAKER) (test 25 mL/min/1.73 sq m ESTIMATED GFR IS NOT hftm=2236) ACCURATE CREATININE CLEARANCE IN PREDICTING GLOMERULAR FILTRATION RATE. ESTIMATED GFR IS NOT APPLICABLE FOR DIALYSIS PATIENTS. [id number] 05:52:00 Test Item Value Reference Range Comments PHOSPHORUS (BEAKER) (test lryo=900) 4.2 mg/dL 2.3-4.7 [id number] 05:52:00 Test Item Value Reference Range Comments MAGNESIUM (BEAKER) (test akwq=535) 2.3 mg/dL 1.6-2.6 CALCIUM, [id number] 05:27:00 Test Item Value Reference Range Comments CALCIUM IONIZED (BEAKER) (test kray=680) 1.12 mmol/L 1.12-1.27 PH, BLOOD (BEAKER) (test tybm=3922) 7.38 CBC W/PLT COUNT & AUTO [id number] 05:07:00 Test Item Value Reference Range Comments WHITE BLOOD CELL COUNT (BEAKER) (test rqnp=420) 8.4 K/ L 3.5-10.5 RED BLOOD CELL COUNT (BEAKER) (test umen=907) 3.16 M/ L 3.93-5.22 HEMOGLOBIN (BEAKER) (test crji=631) 8.2 GM/DL 11.2-15.7 HEMATOCRIT (BEAKER) (test vkuj=693) 26.5 % 34.1-44.9 MEAN CORPUSCULAR VOLUME (BEAKER) (test erps=470) 83.9 fL 79.4-94.8 MEAN CORPUSCULAR HEMOGLOBIN (BEAKER) (test 25.9 pg 25.6-32.2 pdpi=530) MEAN CORPUSCULAR HEMOGLOBIN CONC (BEAKER) (test 30.9 GM/DL 32.2-35.5 yjjd=438) RED CELL DISTRIBUTION WIDTH (BEAKER) (test 14.6 % 11.7-14.4 cccs=606) PLATELET COUNT (BEAKER) (test xdcd=714) 256 K/CU MM 150-450 MEAN PLATELET VOLUME (BEAKER) (test ffrw=592) 10.0 fL 9.4-12.3 NUCLEATED RED BLOOD CELLS (BEAKER) (test 0 /100 WBC 0-0 ktaj=797) NEUTROPHILS RELATIVE PERCENT (BEAKER) (test 63 % bchv=212) LYMPHOCYTES RELATIVE PERCENT (BEAKER) (test 25 % qbnj=540) MONOCYTES RELATIVE PERCENT (BEAKER) (test 8 % rerq=475) EOSINOPHILS RELATIVE PERCENT (BEAKER) (test 3 % pjay=648) BASOPHILS RELATIVE PERCENT (BEAKER) (test 1 % cmhh=358) NEUTROPHILS ABSOLUTE COUNT (BEAKER) (test 5.27 K/ L 1.56-6.13 sish=073) LYMPHOCYTES ABSOLUTE COUNT (BEAKER) (test 2.09 K/ L 1.18-3.74 lazq=481) MONOCYTES ABSOLUTE COUNT (BEAKER) (test 0.63 K/ L 0.24-0.36 aokh=747) EOSINOPHILS ABSOLUTE COUNT (BEAKER) (test 0.27 K/ L 0.04-0.36 iono=227) BASOPHILS ABSOLUTE COUNT (BEAKER) (test 0.05 K/ L 0.01-0.08 szmz=145) IMMATURE GRANULOCYTES-RELATIVE PERCENT (BEAKER) 1 % 0-1 (test zbzx=7166) RAD, CHEST, 1 VIEW, NON [id number] 04:45:00Reason for exam:->pl effusionShould this be performed [...] MDReport Verified Date/Time: 05/25/2017 04:45:08 Reading Location: [address] Body Reading Room POCT-GLUCOSE [id number] 01:52:00 Test Item Value Reference Range Comments POC-GLUCOSE METER (BEAKER) 126 mg/dL 70-110 TESTED AT [address] (test moxp=3417) [facility] [address] POCT-GLUCOSE [id number] 13:07:00 Test Item Value Reference Range Comments POC-GLUCOSE METER (BEAKER) 118 mg/dL 70-110 TESTED AT [place] [id number] [facility] (test rfqx=3068) [facility] [address] BRONCHIAL CULTURE + GRAM [id number] 11:35:00 Test Item Value Reference Range Comments CULTURE (BEAKER) (test vyam=5364) Amikacin (test code=1) Susceptible 0-16 , Resistant [...] >40 code=47) CULTURE (BEAKER) (test 4+ Bordetella lvvp=9173) bronchiseptica GRAM STAIN RESULT 1+ WBCs (BEAKER) (test slfm=4563) GRAM STAIN RESULT <1+ gram positive (BEAKER) (test cocci in pairs ojym=648241) GRAM STAIN RESULT 1+ gram variable (BEAKER) (test rods qnak=799036) 1+ Normal respiratory todd presentRAD, CHEST, 1 VIEW, NON [id number] 06:50: 00Reason for exam:->pl effusionShould this be [...] MDReport Verified Date/Time: 05/24/2017 06:50:08 Reading Location: [address] Body Reading Room BASIC METABOLIC [id number] 04: 19:00 Test Item Value Reference Range Comments SODIUM (BEAKER) (test 136 meq/L 136-145 pddo=062) POTASSIUM (BEAKER) (test 4.3 meq/L 3.5-5.1 eyrp=925) CHLORIDE (BEAKER) (test 104 meq/L 98-107 qawd=017) CO2 (BEAKER) (test 20 meq/L 22-29 vcmp=183) BLOOD UREA NITROGEN 61 mg/dL 7-21 (BEAKER) (test kvzd=251) CREATININE (BEAKER) (test 2.69 mg/dL 0.57-1.25 tcsz=704) GLUCOSE RANDOM (BEAKER) 107 mg/dL 70-105 (test achm=651) CALCIUM (BEAKER) (test 7.8 mg/dL 8.4-10.2 naur=508) EGFR (BEAKER) (test 18 mL/min/1.73 sq m ESTIMATED GFR IS NOT mvqw=0773) ACCURATE CREATININE CLEARANCE IN PREDICTING GLOMERULAR FILTRATION RATE. ESTIMATED GFR IS NOT APPLICABLE FOR DIALYSIS PATIENTS. CALCIUM, [id number] 04:16:00 Test Item Value Reference Range Comments CALCIUM IONIZED (BEAKER) (test krjm=974) 1.06 mmol/L 1.12-1.27 PH, BLOOD (BEAKER) (test osdu=2030) 7.40 [id number] 04:11:00 Test Item Value Reference Range Comments PHOSPHORUS (BEAKER) (test wcmt=067) 6.0 mg/dL 2.3-4.7 [id number] 04:11:00 Test Item Value Reference Range Comments MAGNESIUM (BEAKER) (test pyvw=048) 2.4 mg/dL 1.6-2.6 CBC W/PLT COUNT & AUTO [id number] 03:50:00 Test Item Value Reference Range Comments WHITE BLOOD CELL COUNT (BEAKER) (test cwyl=083) 9.5 K/ L 3.5-10.5 RED BLOOD CELL COUNT (BEAKER) (test urwu=355) 3.06 M/ L 3.93-5.22 HEMOGLOBIN (BEAKER) (test dkgc=734) 7.9 GM/DL 11.2-15.7 HEMATOCRIT (BEAKER) (test hdgo=919) 25.5 % 34.1-44.9 MEAN CORPUSCULAR VOLUME (BEAKER) (test fhov=758) 83.3 fL 79.4-94.8 MEAN CORPUSCULAR HEMOGLOBIN (BEAKER) (test 25.8 pg 25.6-32.2 rlyf=508) MEAN CORPUSCULAR HEMOGLOBIN CONC (BEAKER) (test 31.0 GM/DL 32.2-35.5 whqa=333) RED CELL DISTRIBUTION WIDTH (BEAKER) (test 15.1 % 11.7-14.4 ddwr=340) PLATELET COUNT (BEAKER) (test fali=747) 224 K/CU MM 150-450 MEAN PLATELET VOLUME (BEAKER) (test fcvm=372) 10.5 fL 9.4-12.3 NUCLEATED RED BLOOD CELLS (BEAKER) (test 0 /100 WBC 0-0 jrgz=782) NEUTROPHILS RELATIVE PERCENT (BEAKER) (test 70 % gtul=849) LYMPHOCYTES RELATIVE PERCENT (BEAKER) (test 21 % qugz=217) MONOCYTES RELATIVE PERCENT (BEAKER) (test 7 % hvim=174) EOSINOPHILS RELATIVE PERCENT (BEAKER) (test 2 % alhx=083) BASOPHILS RELATIVE PERCENT (BEAKER) (test 0 % fekj=672) NEUTROPHILS ABSOLUTE COUNT (BEAKER) (test 6.60 K/ L 1.56-6.13 cxze=439) LYMPHOCYTES ABSOLUTE COUNT (BEAKER) (test 2.02 K/ L 1.18-3.74 ciiz=470) MONOCYTES ABSOLUTE COUNT (BEAKER) (test 0.63 K/ L 0.24-0.36 gyow=384) EOSINOPHILS ABSOLUTE COUNT (BEAKER) (test 0.15 K/ L 0.04-0.36 xaph=183) BASOPHILS ABSOLUTE COUNT (BEAKER) (test 0.04 K/ L 0.01-0.08 kqfn=462) IMMATURE GRANULOCYTES-RELATIVE PERCENT (BEAKER) 0 % 0-1 (test ywvb=4744) POCT-GLUCOSE [id number] 20:45:00 Test Item Value Reference Range Comments POC-GLUCOSE METER (BEAKER) 143 mg/dL 70-110 TESTED AT [place] [address] [address] (test mbxi=1152) [facility] [address] POCT-GLUCOSE [id number] 20:45:00 Test Item Value Reference Range Comments POC-GLUCOSE METER (BEAKER) 145 mg/dL 70-110 TESTED AT [place] [address] [address] (test griy=9459) [facility] [address] [id number] 13:37:00 Test Item Value Reference Range Comments PREALBUMIN (BEAKER) (test 10 mg/dL 14-45 Specimen slightly hemolyzed hxte=698) OXYGEN SATURATION, [id number] 12:31:00 Test Item Value Reference Range Comments O2 SATURATION (MEASURED) (BEAKER) (test eord=7801) 94.5 % [id number] 11:02:00 Test Item Value Reference Range Comments PREALBUMIN (BEAKER) (test ppgm=807) 10 mg/dL 14-45 RAD, CHEST, 1 VIEW, NON [id number] 05:14:00while patient is intubated or has chest [...] MDReport Verified Date/Time: 05/23/2017 05:14:04 Reading Location: [address] Body Reading Room BASIC METABOLIC [id number] 03:48:00 Test Item Value Reference Range Comments SODIUM (BEAKER) (test 138 meq/L 136-145 tcjq=355) POTASSIUM (BEAKER) (test 4.6 meq/L 3.5-5.1 Specimen slightly hggg=071) hemolyzed CHLORIDE (BEAKER) (test 106 meq/L 98-107 ylgc=475) CO2 (BEAKER) (test 20 meq/L 22-29 ttjm=207) BLOOD UREA NITROGEN 54 mg/dL 7-21 (BEAKER) (test cpwl=173) CREATININE (BEAKER) (test 2.66 mg/dL 0.57-1.25 Specimen slightly nrzi=969) hemolyzed GLUCOSE RANDOM (BEAKER) 113 mg/dL 70-105 (test lptw=193) CALCIUM (BEAKER) (test 7.9 mg/dL 8.4-10.2 khgf=137) EGFR (BEAKER) (test 18 mL/min/1.73 sq m ESTIMATED GFR IS NOT axtm=6755) ACCURATE CREATININE CLEARANCE IN PREDICTING GLOMERULAR FILTRATION RATE. ESTIMATED GFR IS NOT APPLICABLE FOR DIALYSIS PATIENTS. [id number] 03:46:00 Test Item Value Reference Range Comments MAGNESIUM (BEAKER) (test 2.4 mg/dL 1.6-2.6 Specimen slightly hemolyzed qtnu=265) [id number] 03:46:00 Test Item Value Reference Range Comments PHOSPHORUS (BEAKER) (test 6.5 mg/dL 2.3-4.7 Specimen slightly hemolyzed abjr=502) CBC W/PLT COUNT & AUTO [id number] 03:26:00 Test Item Value Reference Range Comments WHITE BLOOD CELL COUNT (BEAKER) (test pyvb=967) 10.8 K/ L 3.5-10.5 RED BLOOD CELL COUNT (BEAKER) (test kujg=040) 3.16 M/ L 3.93-5.22 HEMOGLOBIN (BEAKER) (test wwoi=655) 8.2 GM/DL 11.2-15.7 HEMATOCRIT (BEAKER) (test pwvm=475) 26.6 % 34.1-44.9 MEAN CORPUSCULAR VOLUME (BEAKER) (test geqo=862) 84.2 fL 79.4-94.8 MEAN CORPUSCULAR HEMOGLOBIN (BEAKER) (test 25.9 pg 25.6-32.2 bchm=934) MEAN CORPUSCULAR HEMOGLOBIN CONC (BEAKER) (test 30.8 GM/DL 32.2-35.5 wkpq=891) RED CELL DISTRIBUTION WIDTH (BEAKER) (test 15.0 % 11.7-14.4 nxbj=319) PLATELET COUNT (BEAKER) (test myfk=393) 195 K/CU MM 150-450 MEAN PLATELET VOLUME (BEAKER) (test aocm=547) 10.6 fL 9.4-12.3 NUCLEATED RED BLOOD CELLS (BEAKER) (test 0 /100 WBC 0-0 ibry=537) NEUTROPHILS RELATIVE PERCENT (BEAKER) (test 73 % tirw=843) LYMPHOCYTES RELATIVE PERCENT (BEAKER) (test 18 % jdpk=602) MONOCYTES RELATIVE PERCENT (BEAKER) (test 6 % slgn=523) EOSINOPHILS RELATIVE PERCENT (BEAKER) (test 2 % ypwa=886) BASOPHILS RELATIVE PERCENT (BEAKER) (test 1 % nnvl=095) NEUTROPHILS ABSOLUTE COUNT (BEAKER) (test 7.95 K/ L 1.56-6.13 dcyr=398) LYMPHOCYTES ABSOLUTE COUNT (BEAKER) (test 1.93 K/ L 1.18-3.74 lcpv=629) MONOCYTES ABSOLUTE COUNT (BEAKER) (test 0.66 K/ L 0.24-0.36 ikeb=850) EOSINOPHILS ABSOLUTE COUNT (BEAKER) (test 0.18 K/ L 0.04-0.36 tzad=317) BASOPHILS ABSOLUTE COUNT (BEAKER) (test 0.07 K/ L 0.01-0.08 uqra=459) IMMATURE GRANULOCYTES-RELATIVE PERCENT (BEAKER) 0 % 0-1 (test xaiu=2750) BLOOD GAS, [id number] 03:18:00 Test Item Value Reference Range Comments PH ARTERIAL (BEAKER) (test tvpv=814) 7.40 7.35-7.45 PCO2 ARTERIAL (BEAKER) (test fjwv=517) 40 mmHg 35-45 PO2 ARTERIAL (BEAKER) (test uwud=627) 63 mmHg 80-90 O2 SATURATION ARTERIAL (BEAKER) (test vfqv=833) 92.3 % 96.0-97.0 HCO3 ARTERIAL (BEAKER) (test hric=195) 24 mmol/L 21-29 BASE EXCESS ARTERIAL (BEAKER) (test peke=738) -0.6 mmol/L -2.0-3.0 PATIENT TEMPERATURE (BEAKER) (test kfdc=6484) 36.8 C FIO2 (BEAKER) (test rtfr=3651) 36.0 % CALCIUM, [id number] 16:32:00 Test Item Value Reference Range Comments CALCIUM IONIZED (BEAKER) (test fwqy=123) 1.11 mmol/L 1.12-1.27 PH, BLOOD (BEAKER) (test sfem=8011) 7.39 BASIC METABOLIC [id number] 15:43:00 Test Item Value Reference Range Comments SODIUM (BEAKER) (test 139 meq/L 136-145 jzex=657) POTASSIUM (BEAKER) (test 4.6 meq/L 3.5-5.1 idub=764) CHLORIDE (BEAKER) (test 106 meq/L 98-107 ynar=012) CO2 (BEAKER) (test 21 meq/L 22-29 hurw=627) BLOOD UREA NITROGEN 54 mg/dL 7-21 (BEAKER) (test xxqt=377) CREATININE (BEAKER) (test 3.08 mg/dL 0.57-1.25 myon=065) GLUCOSE RANDOM (BEAKER) 116 mg/dL 70-105 (test gidz=806) CALCIUM (BEAKER) (test 8.1 mg/dL 8.4-10.2 tsgu=264) EGFR (BEAKER) (test 15 mL/min/1.73 sq m ESTIMATED GFR IS NOT jyqs=9753) ACCURATE CREATININE CLEARANCE IN PREDICTING GLOMERULAR FILTRATION RATE. ESTIMATED GFR IS NOT APPLICABLE FOR DIALYSIS PATIENTS. POCT-GLUCOSE [id number] 12:53:00 Test Item Value Reference Range Comments POC-GLUCOSE METER (BEAKER) 118 mg/dL 70-110 TESTED AT [address] (test vgns=3316) [place] [id number] BLOOD GAS, [id number] 10:42:00 Test Item Value Reference Range Comments PH ARTERIAL (BEAKER) (test abzr=442) 7.40 7.35-7.45 PCO2 ARTERIAL (BEAKER) (test gdmr=153) 38 mmHg 35-45 PO2 ARTERIAL (BEAKER) (test kraq=951) 78 mmHg 80-90 O2 SATURATION ARTERIAL (BEAKER) (test zxpv=634) 95.6 % 96.0-97.0 HCO3 ARTERIAL (BEAKER) (test ommt=342) 23 mmol/L 21-29 BASE EXCESS ARTERIAL (BEAKER) (test trze=365) -1.4 mmol/L -2.0-3.0 PATIENT TEMPERATURE (BEAKER) (test gvvj=1391) 36.9 C FIO2 (BEAKER) (test lzfy=0544) 40.0 % POCT-GLUCOSE [id number] 06:46:00 Test Item Value Reference Range Comments POC-GLUCOSE METER (BEAKER) 106 mg/dL 70-110 TESTED AT [address] (test ffln=1193) [place] [id number] RAD, CHEST, 1 VIEW, NON [id number] 05:05:00while patient is intubated or has chest [...] MDReport Verified Date/Time: 05/22/2017 05:05:00 Reading Location: [facility] C013Y CT Body ReadingRoom BASIC METABOLIC [id number] 05:00:00 Test Item Value Reference Range Comments SODIUM (BEAKER) (test 138 meq/L 136-145 jjee=095) POTASSIUM (BEAKER) (test 4.5 meq/L 3.5-5.1 wplp=317) CHLORIDE (BEAKER) (test 107 meq/L 98-107 ivdz=701) CO2 (BEAKER) (test 21 meq/L 22-29 pbmn=937) BLOOD UREA NITROGEN 53 mg/dL 7-21 (BEAKER) (test ylbf=063) CREATININE (BEAKER) (test 3.23 mg/dL 0.57-1.25 vgni=081) GLUCOSE RANDOM (BEAKER) 126 mg/dL 70-105 (test jbnq=759) CALCIUM (BEAKER) (test 8.1 mg/dL 8.4-10.2 wvew=619) EGFR (BEAKER) (test 15 mL/min/1.73 sq m ESTIMATED GFR IS NOT srdh=3235) ACCURATE CREATININE CLEARANCE IN PREDICTING GLOMERULAR FILTRATION RATE. ESTIMATED GFR IS NOT APPLICABLE FOR DIALYSIS PATIENTS. [id number] 04:41:00 Test Item Value Reference Range Comments PHOSPHORUS (BEAKER) (test gixe=742) 6.4 mg/dL 2.3-4.7 [id number] 04:41:00 Test Item Value Reference Range Comments MAGNESIUM (BEAKER) (test lojp=205) 2.6 mg/dL 1.6-2.6 CALCIUM, [id number] 04:26:00 Test Item Value Reference Range Comments CALCIUM IONIZED (BEAKER) (test lkqs=472) 1.09 mmol/L 1.12-1.27 PH, BLOOD (BEAKER) (test wfwg=2738) 7.40 OXYGEN SATURATION, [id number] 04:25:00 Test Item Value Reference Range Comments O2 SATURATION (MEASURED) (BEAKER) (test tzol=8037) 77.0 % CBC W/PLT COUNT & AUTO [id number] 04:17:00 Test Item Value Reference Range Comments WHITE BLOOD CELL COUNT (BEAKER) (test iego=773) 8.9 K/ L 3.5-10.5 RED BLOOD CELL COUNT (BEAKER) (test zupx=717) 3.14 M/ L 3.93-5.22 HEMOGLOBIN (BEAKER) (test wosx=239) 8.1 GM/DL 11.2-15.7 HEMATOCRIT (BEAKER) (test qiia=652) 26.1 % 34.1-44.9 MEAN CORPUSCULAR VOLUME (BEAKER) (test xqfi=960) 83.1 fL 79.4-94.8 MEAN CORPUSCULAR HEMOGLOBIN (BEAKER) (test 25.8 pg 25.6-32.2 jwwz=957) MEAN CORPUSCULAR HEMOGLOBIN CONC (BEAKER) (test 31.0 GM/DL 32.2-35.5 iplj=204) RED CELL DISTRIBUTION WIDTH (BEAKER) (test 15.3 % 11.7-14.4 wqjq=897) PLATELET COUNT (BEAKER) (test gcib=765) 156 K/CU MM 150-450 MEAN PLATELET VOLUME (BEAKER) (test hvex=141) 10.2 fL 9.4-12.3 NUCLEATED RED BLOOD CELLS (BEAKER) (test 0 /100 WBC 0-0 ncad=380) NEUTROPHILS RELATIVE PERCENT (BEAKER) (test 68 % tplk=451) LYMPHOCYTES RELATIVE PERCENT (BEAKER) (test 22 % jruw=174) MONOCYTES RELATIVE PERCENT (BEAKER) (test 8 % tofy=945) EOSINOPHILS RELATIVE PERCENT (BEAKER) (test 1 % dwrv=079) BASOPHILS RELATIVE PERCENT (BEAKER) (test 1 % xbwc=591) NEUTROPHILS ABSOLUTE COUNT (BEAKER) (test 6.05 K/ L 1.56-6.13 kalc=450) LYMPHOCYTES ABSOLUTE COUNT (BEAKER) (test 1.91 K/ L 1.18-3.74 obhv=477) MONOCYTES ABSOLUTE COUNT (BEAKER) (test 0.74 K/ L 0.24-0.36 kuxb=350) EOSINOPHILS ABSOLUTE COUNT (BEAKER) (test 0.08 K/ L 0.04-0.36 yxce=889) BASOPHILS ABSOLUTE COUNT (BEAKER) (test 0.05 K/ L 0.01-0.08 bjgj=510) IMMATURE GRANULOCYTES-RELATIVE PERCENT (BEAKER) 0 % 0-1 (test spns=3483) LACTIC ACID, ARTERIAL, WHOLE [id number] 00:07:00 Test Item Value Reference Range Comments LACTATE BLOOD ARTERIAL (2) 1.0 mmol/L 0.5-2.2 Specimen slightly hemolyzed (BEAKER) (test kdup=8715) Effective 08/02/2015: Units/Reference Range ChangeNew: 0.5-2.2 mmol/L Previous: 5 -20 mg/dLPOCT-GLUCOSE [id number] 23:47:00 Test Item Value Reference Range Comments POC-GLUCOSE METER (BEAKER) 180 mg/dL 70-110 TESTED AT [facility] [address] [facility] (test jmdu=4474) [facility] [address] BLOOD GAS, [id number] 23:46:00 Test Item Value Reference Range Comments PH ARTERIAL (BEAKER) (test kutp=561) 7.40 7.35-7.45 PCO2 ARTERIAL (BEAKER) (test dnnj=100) 37 mmHg 35-45 PO2 ARTERIAL (BEAKER) (test veju=596) 136 mmHg 80-90 O2 SATURATION ARTERIAL (BEAKER) (test tzwd=705) 98.7 % 96.0-97.0 HCO3 ARTERIAL (BEAKER) (test zxcu=252) 22 mmol/L 21-29 BASE EXCESS ARTERIAL (BEAKER) (test mwgq=893) -2.4 mmol/L -2.0-3.0 PATIENT TEMPERATURE (BEAKER) (test ncvj=5004) 37.0 C FIO2 (BEAKER) (test cuau=1329) 100.0 % SODIUM NA-STAT [id number] 23:46:00 Test Item Value Reference Range Comments SODIUM (BEAKER) (test lzgo=266) 134 meq/L 135-148 GLUCOSE-STAT [id number] 23:46:00 Test Item Value Reference Range Comments GLUCOSE RANDOM (BEAKER) (test bvid=241) 119 mg/dL 70-110 HGB/HCT (H&H) - STAT [id number] 23:46:00 Test Item Value Reference Range Comments HEMOGLOBIN (BEAKER) (test yvbv=000) 8.8 g/dL 12.0-15.0 HEMATOCRIT (BEAKER) (test sgcp=024) 26.0 % 36.0-45.0 OXYGEN SATURATION, [id number] 23:45:00 Test Item Value Reference Range Comments O2 SATURATION (MEASURED) (BEAKER) (test gwdb=1356) 68.1 % POTASSIUM-STAT [id number] 23:45:00 Test Item Value Reference Range Comments POTASSIUM (BEAKER) (test gfnw=185) 5.5 meq/L 3.6-5.5 POCT-GLUCOSE [id number] 20:58:00 Test Item Value Reference Range Comments POC-GLUCOSE METER (BEAKER) 133 mg/dL 70-110 TESTED AT [address] (test jsqa=3841) [facility] [address] POCT-GLUCOSE [id number] 17:58:00 Test Item Value Reference Range Comments POC-GLUCOSE METER (BEAKER) 210 mg/dL 70-110 TESTED AT [address] (test mrkl=2112) [facility] [address] POCT-GLUCOSE [id number] 17:58:00 Test Item Value Reference Range Comments POC-GLUCOSE METER (BEAKER) 211 mg/dL 70-110 TESTED AT [address] (test dppz=1620) [facility] [address] POCT-GLUCOSE [id number] 17:58:00 Test Item Value Reference Range Comments POC-GLUCOSE METER (BEAKER) 232 mg/dL 70-110 TESTED AT [address] (test wyhb=9790) [facility] [address] POCT-GLUCOSE [id number] 17:58:00 Test Item Value Reference Range Comments POC-GLUCOSE METER (BEAKER) 262 mg/dL 70-110 TESTED AT [address] (test wbgu=2236) [place] [id number] BLOOD GAS, [id number] 17:01:00 Test Item Value Reference Range Comments PH ARTERIAL (BEAKER) (test rxzn=994) 7.38 7.35-7.45 PCO2 ARTERIAL (BEAKER) (test yeqh=407) 39 mmHg 35-45 PO2 ARTERIAL (BEAKER) (test jjlx=348) 75 mmHg 80-90 O2 SATURATION ARTERIAL (BEAKER) (test mluf=079) 94.9 % 96.0-97.0 HCO3 ARTERIAL (BEAKER) (test neus=195) 23 mmol/L 21-29 BASE EXCESS ARTERIAL (BEAKER) (test rhbk=458) -2.5 mmol/L -2.0-3.0 PATIENT TEMPERATURE (BEAKER) (test atna=2826) 36.8 C FIO2 (BEAKER) (test pvpc=4397) 60.0 % POTASSIUM-STAT [id number] 17:00:00 Test Item Value Reference Range Comments POTASSIUM (BEAKER) (test ndck=662) 4.8 meq/L 3.6-5.5 POCT-GLUCOSE [id number] 15:52:00 Test Item Value Reference Range Comments POC-GLUCOSE METER (BEAKER) 267 mg/dL 70-110 TESTED AT [address] (test acwl=2383) [place] [address] POCT-GLUCOSE [id number] 14:42:00 Test Item Value Reference Range Comments POC-GLUCOSE METER (BEAKER) 231 mg/dL 70-110 TESTED AT [address] (test ecbe=4398) [place] [address] BODY FLUID CELL COUNT WITH [id number] 14:41:00 Test Item Value Reference Range Comments APPEARANCE FLUID (BEAKER) (test cujv=012) Turbid Clear COLOR FLUID (BEAKER) (test dopa=689) Colorless Colorless, Straw RBC FLUID (BEAKER) (test fcjn=316) 2000 /cu mm <=1 ADJUSTED WBC FLUID (BEAKER) (test widf=0229) 1489 /cu mm <=5 LINING CELLS (BEAKER) (test vwbe=4560) 119 /cu mm <=1 NEUTROPHILS FLUID (BEAKER) (test qqac=6070) 40 % LYMPHS FLUID (BEAKER) (test piws=534) 34 % MONO/MACROPHAGE FLUID (BEAKER) (test lblt=422) 26 % EOSINOPHILS FLUID (BEAKER) (test mlmt=202) 0 % BASO FLUID (BEAKER) (test jzel=376) 0 % CONTAINER BODY FLUID (BEAKER) (test sbcl=1620) EDTA Tube BASIC METABOLIC [id number] 14:11:00 Test Item Value Reference Range Comments SODIUM (BEAKER) (test 137 meq/L 136-145 elom=244) POTASSIUM (BEAKER) (test 5.6 meq/L 3.5-5.1 yxze=880) CHLORIDE (BEAKER) (test 106 meq/L 98-107 xuhj=714) CO2 (BEAKER) (test 20 meq/L 22-29 wyrt=211) BLOOD UREA NITROGEN 48 mg/dL 7-21 (BEAKER) (test ofqs=439) CREATININE (BEAKER) (test 2.50 mg/dL 0.57-1.25 uavm=420) GLUCOSE RANDOM (BEAKER) 221 mg/dL 70-105 (test xpqo=180) CALCIUM (BEAKER) (test 8.1 mg/dL 8.4-10.2 mmqn=961) EGFR (BEAKER) (test 20 mL/min/1.73 sq m ESTIMATED GFR IS NOT kjvn=2467) ACCURATE CREATININE CLEARANCE IN PREDICTING GLOMERULAR FILTRATION RATE. ESTIMATED GFR IS NOT APPLICABLE FOR DIALYSIS PATIENTS. [id number] 14:08:00 Test Item Value Reference Range Comments PHOSPHORUS (BEAKER) (test musc=411) 7.2 mg/dL 2.3-4.7 [id number] 14:08:00 Test Item Value Reference Range Comments MAGNESIUM (BEAKER) (test hfve=309) 2.6 mg/dL 1.6-2.6 POCT-GLUCOSE [id number] 12:49:00 Test Item Value Reference Range Comments POC-GLUCOSE METER (BEAKER) 224 mg/dL 70-110 TESTED AT [facility] [address] (test vsef=5687) [facility] [address] POCT-GLUCOSE [id number] 12:49:00 Test Item Value Reference Range Comments POC-GLUCOSE METER (BEAKER) 248 mg/dL 70-110 TESTED AT [facility] [address] (test kyoh=2190) [facility] [address] RAD, CHEST, 1 VIEW, NON [id number] 12:32:00Reason for exam:->re- intubationShould this be performed [...] MDReport Verified Date/Time: 05/21/2017 12:32:08 Reading Location: [facility] Radiology Reading Room POTASSIUM-STAT [id number] 12:28:00 Test Item Value Reference Range Comments POTASSIUM (BEAKER) (test mbqq=661) 5.5 meq/L 3.6-5.5 BLOOD GAS, [id number] 12:28:00 Test Item Value Reference Range Comments PH ARTERIAL (BEAKER) (test khio=477) 7.32 7.35-7.45 PCO2 ARTERIAL (BEAKER) (test bryo=191) 45 mmHg 35-45 PO2 ARTERIAL (BEAKER) (test ipru=089) 304 mmHg 80-90 O2 SATURATION ARTERIAL (BEAKER) (test uebq=633) 99.7 % 96.0-97.0 HCO3 ARTERIAL (BEAKER) (test mqkd=223) 22 mmol/L 21-29 BASE EXCESS ARTERIAL (BEAKER) (test rbfe=402) -3.7 mmol/L -2.0-3.0 PATIENT TEMPERATURE (BEAKER) (test utai=9602) 37.0 C FIO2 (BEAKER) (test cjlj=5647) 100.0 % BLOOD GAS, [id number] 10:53:00 Test Item Value Reference Range Comments PH ARTERIAL (BEAKER) (test wkae=141) 7.36 7.35-7.45 PCO2 ARTERIAL (BEAKER) (test licd=415) 35 mmHg 35-45 PO2 ARTERIAL (BEAKER) (test dcew=837) 40 mmHg 80-90 O2 SATURATION ARTERIAL (BEAKER) (test irtm=968) 82.3 % 96.0-97.0 HCO3 ARTERIAL (BEAKER) (test dzye=715) 20 mmol/L 21-29 BASE EXCESS ARTERIAL (BEAKER) (test dntv=373) -5.9 mmol/L -2.0-3.0 PATIENT TEMPERATURE (BEAKER) (test oame=3300) 33.7 C FIO2 (BEAKER) (test kmok=8043) 36.0 % RAD, CHEST, 1 VIEW, NON [id number] 08:46:00while patient is intubated or has chest [...] Verified Date/ Time: 05/21/2017 08:46:27 Reading Location: [facility] Radiology Reading Room BLOOD GAS, [id number] 05:41:00 Test Item Value Reference Range Comments PH ARTERIAL (BEAKER) (test bvsg=963) 7.33 7.35-7.45 PCO2 ARTERIAL (BEAKER) (test cypt=493) 40 mm Hg 35-45 PO2 ARTERIAL (BEAKER) (test zvmx=721) 106 mm Hg 80-90 O2 SATURATION ARTERIAL (BEAKER) (test cuup=972) 97.5 % 96.0-97.0 HCO3 ARTERIAL (BEAKER) (test coqb=682) 21 mmol/L 21-29 BASE EXCESS ARTERIAL (BEAKER) (test cnpj=926) -5.1 mmol/L -2.0-3.0 PATIENT TEMPERATURE (BEAKER) (test uoiq=1747) 37.0 FIO2 (BEAKER) (test oidn=5211) 40 CALCIUM, [id number] 04:35:00 Test Item Value Reference Range Comments CALCIUM IONIZED (BEAKER) (test joxj=789) 1.13 mmol/L 1.12-1.27 PH, BLOOD (BEAKER) (test ouzo=1779) 7.32 BLOOD GAS, [id number] 04:28:00 Test Item Value Reference Range Comments PH ARTERIAL (BEAKER) (test dana=602) 7.32 7.35-7.45 PCO2 ARTERIAL (BEAKER) (test uvok=210) 40 mmHg 35-45 PO2 ARTERIAL (BEAKER) (test obti=124) 100 mmHg 80-90 O2 SATURATION ARTERIAL (BEAKER) (test wahv=059) 97.2 % 96.0-97.0 HCO3 ARTERIAL (BEAKER) (test chlt=022) 20 mmol/L 21-29 BASE EXCESS ARTERIAL (BEAKER) (test vuhv=094) -5.7 mmol/L -2.0-3.0 PATIENT TEMPERATURE (BEAKER) (test psvu=7171) 36.9 C FIO2 (BEAKER) (test qmqi=8431) 40.0 % [id number] 04:20:00 Test Item Value Reference Range Comments PHOSPHORUS (BEAKER) (test wbso=661) 6.2 mg/dL 2.3-4.7 [id number] 04:20:00 Test Item Value Reference Range Comments MAGNESIUM (BEAKER) (test qvux=885) 2.4 mg/dL 1.6-2.6 HEPATIC FUNCTION [id number] 04:20:00 Test Item Value Reference Range Comments TOTAL PROTEIN (BEAKER) (test isdu=285) 4.8 gm/dL 6.0-8.3 ALBUMIN (BEAKER) (test dunu=4595) 2.5 g/dL 3.5-5.0 BILIRUBIN TOTAL (BEAKER) (test apzp=947) 0.7 mg/dL 0.2-1.2 BILIRUBIN DIRECT (BEAKER) (test ydfe=153) 0.3 mg/dL 0.1-0.5 ALKALINE PHOSPHATASE (BEAKER) (test ohnb=730) 96 U/L 40-150 AST (SGOT) (BEAKER) (test tscu=351) 31 U/L 5-34 ALT (SGPT) (BEAKER) (test hcnn=246) 11 U/L 6-55 BASIC METABOLIC [id number] 04:20:00 Test Item Value Reference Range Comments SODIUM (BEAKER) (test 134 meq/L 136-145 tgjj=980) POTASSIUM (BEAKER) (test 5.0 meq/L 3.5-5.1 orqh=225) CHLORIDE (BEAKER) (test 105 meq/L 98-107 piym=680) CO2 (BEAKER) (test 18 meq/L 22-29 jyce=498) BLOOD UREA NITROGEN 45 mg/dL 7-21 (BEAKER) (test tvfu=272) CREATININE (BEAKER) (test 1.91 mg/dL 0.57-1.25 ajzs=160) GLUCOSE RANDOM (BEAKER) 247 mg/dL 70-105 (test kuof=029) CALCIUM (BEAKER) (test 7.9 mg/dL 8.4-10.2 lvji=583) EGFR (BEAKER) (test 27 mL/min/1.73 sq m ESTIMATED GFR IS NOT jwrb=9659) ACCURATE CREATININE CLEARANCE IN PREDICTING GLOMERULAR FILTRATION RATE. ESTIMATED GFR IS NOT APPLICABLE FOR DIALYSIS PATIENTS. OXYGEN SATURATION, [id number] 04:18:00 Test Item Value Reference Range Comments O2 SATURATION (MEASURED) (BEAKER) (test jxti=3185) 68.0 % LACTIC ACID, ARTERIAL, WHOLE [id number] 04:12:00 Test Item Value Reference Range Comments LACTATE BLOOD ARTERIAL (2) (BEAKER) (test 1.0 mmol/L 0.5-2.2 wljx=0504) Effective 08/02/2015: Units/Reference Range ChangeNew: 0.5-2.2 mmol/L Previous: 5 -20 mg/dLCBC W/PLT COUNT & AUTO [id number] 04:00:00 Test Item Value Reference Range Comments WHITE BLOOD CELL COUNT (BEAKER) (test budw=563) 12.0 K/ L 3.5-10.5 RED BLOOD CELL COUNT (BEAKER) (test ghrx=972) 3.32 M/ L 3.93-5.22 HEMOGLOBIN (BEAKER) (test tuvy=889) 8.8 GM/DL 11.2-15.7 HEMATOCRIT (BEAKER) (test oisz=708) 28.3 % 34.1-44.9 MEAN CORPUSCULAR VOLUME (BEAKER) (test ihrb=140) 85.2 fL 79.4-94.8 MEAN CORPUSCULAR HEMOGLOBIN (BEAKER) (test 26.5 pg 25.6-32.2 rqoc=727) MEAN CORPUSCULAR HEMOGLOBIN CONC (BEAKER) (test 31.1 GM/DL 32.2-35.5 rstk=563) RED CELL DISTRIBUTION WIDTH (BEAKER) (test 15.0 % 11.7-14.4 cmfw=849) PLATELET COUNT (BEAKER) (test eevy=230) 157 K/CU MM 150-450 MEAN PLATELET VOLUME (BEAKER) (test wwlu=139) 10.7 fL 9.4-12.3 NUCLEATED RED BLOOD CELLS (BEAKER) (test 0 /100 WBC 0-0 iznp=861) NEUTROPHILS RELATIVE PERCENT (BEAKER) (test 91 % pedw=665) LYMPHOCYTES RELATIVE PERCENT (BEAKER) (test 4 % azpp=119) MONOCYTES RELATIVE PERCENT (BEAKER) (test 4 % engz=043) EOSINOPHILS RELATIVE PERCENT (BEAKER) (test 0 % rchf=976) BASOPHILS RELATIVE PERCENT (BEAKER) (test 0 % nmhz=541) NEUTROPHILS ABSOLUTE COUNT (BEAKER) (test 10.95 K/ L 1.56-6.13 gisc=743) LYMPHOCYTES ABSOLUTE COUNT (BEAKER) (test 0.52 K/ L 1.18-3.74 khja=943) MONOCYTES ABSOLUTE COUNT (BEAKER) (test 0.42 K/ L 0.24-0.36 pswh=580) EOSINOPHILS ABSOLUTE COUNT (BEAKER) (test 0.01 K/ L 0.04-0.36 qakg=144) BASOPHILS ABSOLUTE COUNT (BEAKER) (test 0.05 K/ L 0.01-0.08 ucyh=634) IMMATURE GRANULOCYTES-RELATIVE PERCENT (BEAKER) 0 % 0-1 (test acoa=7680) BLOOD GAS, [id number] 00:06:00 Test Item Value Reference Range Comments PH ARTERIAL (BEAKER) (test esge=181) 7.26 7.35-7.45 PCO2 ARTERIAL (BEAKER) (test pgqn=765) 52 mmHg 35-45 PO2 ARTERIAL (BEAKER) (test sxxn=137) 88 mmHg 80-90 O2 SATURATION ARTERIAL (BEAKER) (test hgrx=871) 95.7 % 96.0-97.0 HCO3 ARTERIAL (BEAKER) (test nifo=618) 23 mmol/L 21-29 BASE EXCESS ARTERIAL (BEAKER) (test pteg=098) -4.0 mmol/L -2.0-3.0 PATIENT TEMPERATURE (BEAKER) (test gthy=8748) 36.4 C FIO2 (BEAKER) (test innt=1876) 40.0 % [id number] 18:55:00 Test Item Value Reference Range Comments PHOSPHORUS (BEAKER) (test lirp=569) 4.8 mg/dL 2.3-4.7 [id number] 18:55:00 Test Item Value Reference Range Comments MAGNESIUM (BEAKER) (test fvxu=248) 2.3 mg/dL 1.6-2.6 BASIC METABOLIC [id number] 18:55:00 Test Item Value Reference Range Comments SODIUM (BEAKER) (test 136 meq/L 136-145 uidv=150) POTASSIUM (BEAKER) (test 4.5 meq/L 3.5-5.1 lbzo=692) CHLORIDE (BEAKER) (test 108 meq/L 98-107 dxgj=087) CO2 (BEAKER) (test 21 meq/L 22-29 tnis=616) BLOOD UREA NITROGEN 39 mg/dL 7-21 (BEAKER) (test vobn=877) CREATININE (BEAKER) (test 1.58 mg/dL 0.57-1.25 dswm=496) GLUCOSE RANDOM (BEAKER) 172 mg/dL 70-105 (test wjlx=171) CALCIUM (BEAKER) (test 7.9 mg/dL 8.4-10.2 ydnk=432) EGFR (BEAKER) (test 33 mL/min/1.73 sq m ESTIMATED GFR IS NOT ueav=9610) ACCURATE CREATININE CLEARANCE IN PREDICTING GLOMERULAR FILTRATION RATE. ESTIMATED GFR IS NOT APPLICABLE FOR DIALYSIS PATIENTS. LACTIC ACID, ARTERIAL, WHOLE [id number] 18:53:00 Test Item Value Reference Range Comments LACTATE BLOOD ARTERIAL (2) 0.9 mmol/L 0.5-2.2 Specimen slightly hemolyzed (BEAKER) (test cwwo=7565) Effective 08/02/2015: Units/Reference Range ChangeNew: 0.5-2.2 mmol/L Previous: 5 -20 mg/dLRAD, CHEST, 1 VIEW, NON [id number] 18:44:00Reason for exam:-> postop cardiacShould this be [...] MDReport Verified Date/Time: 2017 18:44:30 Reading Location: [facility] [id number] Consult Reading Room Electronically signed by: LISA LI M.D. on05/20/2017 06:44 PMCBC W/PLT COUNT & AUTO [id number] 18:38:00 Test Item Value Reference Range Comments WHITE BLOOD CELL COUNT (BEAKER) (test fhdh=819) 8.7 K/ L 3.5-10.5 RED BLOOD CELL COUNT (BEAKER) (test yeuo=959) 3.33 M/ L 3.93-5.22 HEMOGLOBIN (BEAKER) (test wavq=861) 8.7 GM/DL 11.2-15.7 HEMATOCRIT (BEAKER) (test scrj=076) 27.9 % 34.1-44.9 MEAN CORPUSCULAR VOLUME (BEAKER) (test awdu=901) 83.8 fL 79.4-94.8 MEAN CORPUSCULAR HEMOGLOBIN (BEAKER) (test 26.1 pg 25.6-32.2 ceot=525) MEAN CORPUSCULAR HEMOGLOBIN CONC (BEAKER) (test 31.2 GM/DL 32.2-35.5 rzgb=132) RED CELL DISTRIBUTION WIDTH (BEAKER) (test 14.9 % 11.7-14.4 yqbl=649) PLATELET COUNT (BEAKER) (test bgrr=151) 137 K/CU MM 150-450 MEAN PLATELET VOLUME (BEAKER) (test tmbc=499) 10.2 fL 9.4-12.3 NUCLEATED RED BLOOD CELLS (BEAKER) (test 0 /100 WBC 0-0 adud=417) NEUTROPHILS RELATIVE PERCENT (BEAKER) (test 79 % kmjn=228) LYMPHOCYTES RELATIVE PERCENT (BEAKER) (test 12 % vevh=050) MONOCYTES RELATIVE PERCENT (BEAKER) (test 7 % cnml=725) EOSINOPHILS RELATIVE PERCENT (BEAKER) (test 1 % kvqk=725) BASOPHILS RELATIVE PERCENT (BEAKER) (test 1 % rmxp=055) NEUTROPHILS ABSOLUTE COUNT (BEAKER) (test 6.83 K/ L 1.56-6.13 lmch=029) LYMPHOCYTES ABSOLUTE COUNT (BEAKER) (test 1.06 K/ L 1.18-3.74 iuut=576) MONOCYTES ABSOLUTE COUNT (BEAKER) (test 0.56 K/ L 0.24-0.36 pwrs=735) EOSINOPHILS ABSOLUTE COUNT (BEAKER) (test 0.12 K/ L 0.04-0.36 rvwr=296) BASOPHILS ABSOLUTE COUNT (BEAKER) (test 0.04 K/ L 0.01-0.08 omeb=624) IMMATURE GRANULOCYTES-RELATIVE PERCENT (BEAKER) 1 % 0-1 (test rotr=7297) OXYGEN SATURATION, [id number] 18:36:00 Test Item Value Reference Range Comments O2 SATURATION (MEASURED) (BEAKER) (test vqty=1901) 72.5 % From distal port of IJ central venous catheterSODIUM NA-STAT [id number] 18:30 :00 Test Item Value Reference Range Comments SODIUM (BEAKER) (test spiz=685) 132 meq/L 135-148 HGB/HCT (H&H) - STAT [id number] 18:30:00 Test Item Value Reference Range Comments HEMOGLOBIN (BEAKER) (test isbq=635) 9.4 g/dL 12.0-15.0 HEMATOCRIT (BEAKER) (test djrv=618) 28.0 % 36.0-45.0 GLUCOSE-STAT [id number] 18:30:00 Test Item Value Reference Range Comments GLUCOSE RANDOM (BEAKER) (test kwbh=815) 159 mg/dL 70-110 BLOOD GAS, [id number] 18:30:00 Test Item Value Reference Range Comments PH ARTERIAL (BEAKER) (test iemo=239) 7.34 7.35-7.45 PCO2 ARTERIAL (BEAKER) (test lvbo=016) 43 mmHg 35-45 PO2 ARTERIAL (BEAKER) (test jamo=603) 76 mmHg 80-90 O2 SATURATION ARTERIAL (BEAKER) (test tcpm=284) 94.9 % 96.0-97.0 HCO3 ARTERIAL (BEAKER) (test iljo=912) 23 mmol/L 21-29 BASE EXCESS ARTERIAL (BEAKER) (test dffi=891) -2.6 mmol/L -2.0-3.0 PATIENT TEMPERATURE (BEAKER) (test rjxx=4676) 36.4 C FIO2 (BEAKER) (test lfdh=5486) 60.0 % CALCIUM, [id number] 18:30:00 Test Item Value Reference Range Comments CALCIUM IONIZED (BEAKER) (test ahkj=412) 0.94 mmol/L 1.12-1.27 PH, BLOOD (BEAKER) (test frdn=6087) 7.34 POTASSIUM-STAT [id number] 18:28:00 Test Item Value Reference Range Comments POTASSIUM (BEAKER) (test fqpm=367) 4.4 meq/L 3.6-5.5 THROMBOELASTOGRAPH ([id number] 18:11:00 Test Item Value Reference Range Comments TEG ACTIVATED CLOTTING TIME (BEAKER) (test 6.7 minutes 4.0-7.0 okdb=0285) TEG FIBRINOGEN ACTIVITY (BEAKER) (test 66.6 degrees 61.0-73.0 ucps=3062) TEG PLT. AGGREGATION (BEAKER) (test gqlo=4827) 62.4 MM 55.0-65.0 TEG FIBRINOLYSIS (BEAKER) (test zfcg=8736) 0.0 % 0.0-5.0 TGH ACTIVATED CLOTTING TIME (BEAKER) (test 6.7 minutes 4.0-7.0 hluc=4767) TGH FIBRINOGEN ACTIVITY ([facility]) (test 69.0 degrees 61.0-73.0 pows=7271) TGH PLT. AGGREGATION ([facility]) (test ksuw=4777) 62.8 MM 55.0-65.0 TGH FIBRINOLYSIS ([facility]) (test eqej=5353) 0.0 % 0.0-5.0 [id number] 17:53:00 Test Item Value Reference Range Comments ACTIVATED CLOTTING TIME 103 sec TESTED AT [address] [facility] (test udwl=035) [place] [address] [id number] 17:53:00 Test Item Value Reference Range Comments ACTIVATED CLOTTING TIME 466 sec TESTED AT [address] ([facility] (test nfae=680) [place] [address] [id number] 17:53:00 Test Item Value Reference Range Comments ACTIVATED CLOTTING TIME 543 sec TESTED AT [address] ([facility]) (test fwkx=234) [place] [address] [id number] 17:53:00 Test Item Value Reference Range Comments ACTIVATED CLOTTING TIME 549 sec TESTED AT [address] ([facility]) (test yicb=578) [place] [address] [id number] 17:53:00 Test Item Value Reference Range Comments ACTIVATED CLOTTING TIME 632 sec TESTED AT [address] [facility] (test ttqm=998) [place] [address] [id number] 17:53:00 Test Item Value Reference Range Comments ACTIVATED CLOTTING TIME 494 sec TESTED AT [address] ([facility] (test wjai=219) [place] [address] [id number] 17:53:00 Test Item Value Reference Range Comments ACTIVATED CLOTTING TIME 587 sec TESTED AT [address] ([facility]) (test twyd=419) [place] [address] [id number] 17:53:00 Test Item Value Reference Range Comments ACTIVATED CLOTTING TIME 626 sec TESTED AT [address] ([facility] [facility] (test xglq=929) [place] [address] [id number] 17:52:00 Test Item Value Reference Range Comments ACTIVATED CLOTTING TIME 808 sec TESTED AT [facility] [address] (BEAKER) (test pfeu=608) [place] [address] [id number] 16:54:00 Test Item Value Reference Range Comments PARTIAL THROMBOPLASTIN TIME (BEAKER) (test 40.2 seconds 22.5-36.0 rmal=199) [id number] 16:53:00 Test Item Value Reference Range Comments FIBRINOGEN LEVEL (BEAKER) (test etfn=687) 306 mg/dl 225-434 PROTHROMBIN [id number] 16:50:00 Test Item Value Reference Range Comments PROTIME (BEAKER) (test fycd=406) 19.6 seconds 11.7-14.7 INR (BEAKER) (test klic=212) 1.7 <=5.9 RECOMMENDED COUMADIN/WARFARIN INR THERAPY RANGESSTANDARD DOSE: 2.0 - 3.0 Includes: PROPHYLAXIS forvenous thrombosis, systemic embolization; TREATMENT for venous thrombosis and/or pulmonary embolus.HIGH RISK: Target INR is 2.5-3.5 for patients with mechanical heart valves.PLATELET [id number] 16:45:00 Test Item Value Reference Range Comments PLATELET COUNT (BEAKER) (test vedh=395) 136 K/CU MM 150-450 POTASSIUM-STAT [id number] 16:15:00 Test Item Value Reference Range Comments POTASSIUM (BEAKER) (test wqvl=742) 4.9 meq/L 3.6-5.5 BLOOD GAS, [id number] 16:15:00 Test Item Value Reference Range Comments PH ARTERIAL (BEAKER) (test ppta=991) 7.39 7.35-7.45 PCO2 ARTERIAL (BEAKER) (test dwxt=713) 42 mmHg 35-45 PO2 ARTERIAL (BEAKER) (test qloe=309) 201 mmHg 80-90 O2 SATURATION ARTERIAL (BEAKER) (test tvut=618) 99.4 % 96.0-97.0 HCO3 ARTERIAL (BEAKER) (test qaji=531) 25 mmol/L 21-29 BASE EXCESS ARTERIAL (BEAKER) (test ywgj=519) -0.3 mmol/L -2.0-3.0 PATIENT TEMPERATURE (BEAKER) (test bdac=4803) 36.3 C FIO2 (BEAKER) (test nsxy=1476) 100.0 % SODIUM NA-STAT [id number] 16:15:00 Test Item Value Reference Range Comments SODIUM (BEAKER) (test kzzg=544) 131 meq/L 135-148 GLUCOSE-STAT [id number] 16:15:00 Test Item Value Reference Range Comments GLUCOSE RANDOM (BEAKER) (test atrj=026) 198 mg/dL 70-110 HGB/HCT (H&H) - STAT [id number] 16:15:00 Test Item Value Reference Range Comments HEMOGLOBIN (BEAKER) (test cuvu=547) 7.5 g/dL 12.0-15.0 HEMATOCRIT (BEAKER) (test swrh=024) 22.0 % 36.0-45.0 CALCIUM, [id number] 16:14:00 Test Item Value Reference Range Comments CALCIUM IONIZED (BEAKER) (test ckcz=901) 0.91 mmol/L 1.12-1.27 PH, BLOOD (BEAKER) (test sbtl=2542) 7.39 BLOOD GAS, [id number] 15:39:00 Test Item Value Reference Range Comments PH ARTERIAL (BEAKER) (test rhpz=133) 7.44 7.35-7.45 PCO2 ARTERIAL (BEAKER) (test jgbi=413) 38 mmHg 35-45 PO2 ARTERIAL (BEAKER) (test byji=049) 298 mmHg 80-90 O2 SATURATION ARTERIAL (BEAKER) (test yfsh=812) 99.7 % 96.0-97.0 HCO3 ARTERIAL (BEAKER) (test rpok=025) 25 mmol/L 21-29 BASE EXCESS ARTERIAL (BEAKER) (test ajtf=187) 0.7 mmol/L -2.0-3.0 PATIENT TEMPERATURE (BEAKER) (test vbsr=7648) 36.2 C FIO2 (BEAKER) (test oslq=7265) 70.0 % SODIUM NA-STAT [id number] 15:39:00 Test Item Value Reference Range Comments SODIUM (BEAKER) (test cjaw=308) 131 meq/L 135-148 GLUCOSE-STAT [id number] 15:39:00 Test Item Value Reference Range Comments GLUCOSE RANDOM (BEAKER) (test eybi=862) 186 mg/dL 70-110 HGB/HCT (H&H) - STAT [id number] 15:39:00 Test Item Value Reference Range Comments HEMOGLOBIN (BEAKER) (test olva=415) 7.5 g/dL 12.0-15.0 HEMATOCRIT (BEAKER) (test ppzd=756) 22.0 % 36.0-45.0 POTASSIUM-STAT [id number] 15:38:00 Test Item Value Reference Range Comments POTASSIUM (BEAKER) (test bqqf=984) 5.3 meq/L 3.6-5.5 BLOOD GAS, [id number] 15:24:00 Test Item Value Reference Range Comments PH ARTERIAL (BEAKER) (test ares=747) 7.47 7.35-7.45 PCO2 ARTERIAL (BEAKER) (test adma=637) 37 mmHg 35-45 PO2 ARTERIAL (BEAKER) (test mvyw=071) 334 mmHg 80-90 O2 SATURATION ARTERIAL (BEAKER) (test jwko=636) 99.8 % 96.0-97.0 HCO3 ARTERIAL (BEAKER) (test ieoc=382) 26 mmol/L 21-29 BASE EXCESS ARTERIAL (BEAKER) (test kjou=427) 2.2 mmol/L -2.0-3.0 PATIENT TEMPERATURE (BEAKER) (test ldsg=4944) 36.2 C FIO2 (BEAKER) (test skuk=9264) 70.0 % SODIUM NA-STAT [id number] 15:24:00 Test Item Value Reference Range Comments SODIUM (BEAKER) (test shqv=470) 130 meq/L 135-148 GLUCOSE-STAT [id number] 15:24:00 Test Item Value Reference Range Comments GLUCOSE RANDOM (BEAKER) (test pcjh=334) 189 mg/dL 70-110 HGB/HCT (H&H) - STAT [id number] 15:24:00 Test Item Value Reference Range Comments HEMOGLOBIN (BEAKER) (test wmpy=103) 6.7 g/dL 12.0-15.0 HEMATOCRIT (BEAKER) (test uyux=991) 20.0 % 36.0-45.0 POTASSIUM-STAT [id number] 15:23:00 Test Item Value Reference Range Comments POTASSIUM (BEAKER) (test wvpm=300) 5.4 meq/L 3.6-5.5 BLOOD GAS, [id number] 15:07:00 Test Item Value Reference Range Comments PH ARTERIAL (BEAKER) (test vnmf=754) 7.43 7.35-7.45 PCO2 ARTERIAL (BEAKER) (test bwyt=402) 41 mmHg 35-45 PO2 ARTERIAL (BEAKER) (test eflh=369) 365 mmHg 80-90 O2 SATURATION ARTERIAL (BEAKER) (test upgm=177) 99.8 % 96.0-97.0 HCO3 ARTERIAL (BEAKER) (test doos=425) 27 mmol/L 21-29 BASE EXCESS ARTERIAL (BEAKER) (test wdts=763) 1.9 mmol/L -2.0-3.0 PATIENT TEMPERATURE (BEAKER) (test mazy=5388) 35.8 C FIO2 (BEAKER) (test dhjt=4119) 70.0 % SODIUM NA-STAT [id number] 15:07:00 Test Item Value Reference Range Comments SODIUM (BEAKER) (test xfyk=425) 129 meq/L 135-148 GLUCOSE-STAT [id number] 15:07:00 Test Item Value Reference Range Comments GLUCOSE RANDOM (BEAKER) (test kwuy=437) 172 mg/dL 70-110 HGB/HCT (H&H) - STAT [id number] 15:07:00 Test Item Value Reference Range Comments HEMOGLOBIN (BEAKER) (test boyf=903) 7.1 g/dL 12.0-15.0 HEMATOCRIT (BEAKER) (test sxqq=669) 21.0 % 36.0-45.0 POTASSIUM-STAT [id number] 15:04:00 Test Item Value Reference Range Comments POTASSIUM (BEAKER) (test fukg=184) 5.0 meq/L 3.6-5.5 BLOOD GAS, [id number] 14:21:00 Test Item Value Reference Range Comments PH ARTERIAL (BEAKER) (test blvf=440) 7.43 7.35-7.45 PCO2 ARTERIAL (BEAKER) (test gdyg=738) 38 mmHg 35-45 PO2 ARTERIAL (BEAKER) (test byeb=274) 360 mmHg 80-90 O2 SATURATION ARTERIAL (BEAKER) (test zcdn=708) 99.8 % 96.0-97.0 HCO3 ARTERIAL (BEAKER) (test fqil=712) 27 mmol/L 21-29 BASE EXCESS ARTERIAL (BEAKER) (test legn=659) 0.3 mmol/L -2.0-3.0 PATIENT TEMPERATURE (BEAKER) (test krcl=2481) 28.9 C FIO2 (BEAKER) (test ntci=3994) 70.0 % SODIUM NA-STAT [id number] 14:21:00 Test Item Value Reference Range Comments SODIUM (BEAKER) (test twxd=390) 133 meq/L 135-148 GLUCOSE-STAT [id number] 14:21:00 Test Item Value Reference Range Comments GLUCOSE RANDOM (BEAKER) (test mgbg=547) 160 mg/dL 70-110 HGB/HCT (H&H) - STAT [id number] 14:21:00 Test Item Value Reference Range Comments HEMOGLOBIN (BEAKER) (test kyds=476) 7.5 g/dL 12.0-15.0 HEMATOCRIT (BEAKER) (test iasy=597) 22.0 % 36.0-45.0 POTASSIUM-STAT [id number] 14:20:00 Test Item Value Reference Range Comments POTASSIUM (BEAKER) (test rpsm=929) 4.7 meq/L 3.6-5.5 BLOOD GAS, [id number] 13:58:00 Test Item Value Reference Range Comments PH ARTERIAL (BEAKER) (test pmuw=465) 7.43 7.35-7.45 PCO2 ARTERIAL (BEAKER) (test kfsa=465) 37 mmHg 35-45 PO2 ARTERIAL (BEAKER) (test uwsi=701) 448 mmHg 80-90 O2 SATURATION ARTERIAL (BEAKER) (test dcsp=335) 99.9 % 96.0-97.0 HCO3 ARTERIAL (BEAKER) (test xbty=816) 26 mmol/L 21-29 BASE EXCESS ARTERIAL (BEAKER) (test wwxx=871) -0.1 mmol/L -2.0-3.0 PATIENT TEMPERATURE (BEAKER) (test vzcg=2256) 29.2 C FIO2 (BEAKER) (test mpkp=5666) 80.0 % SODIUM NA-STAT [id number] 13:58:00 Test Item Value Reference Range Comments SODIUM (BEAKER) (test rpxh=775) 132 meq/L 135-148 GLUCOSE-STAT [id number] 13:58:00 Test Item Value Reference Range Comments GLUCOSE RANDOM (BEAKER) (test hlck=503) 166 mg/dL 70-110 HGB/HCT (H&H) - STAT [id number] 13:58:00 Test Item Value Reference Range Comments HEMOGLOBIN (BEAKER) (test eupb=566) 7.5 g/dL 12.0-15.0 HEMATOCRIT (BEAKER) (test puuz=831) 22.0 % 36.0-45.0 POTASSIUM-STAT [id number] 13:57:00 Test Item Value Reference Range Comments POTASSIUM (BEAKER) (test idyt=813) 4.7 meq/L 3.6-5.5 BLOOD GAS, [id number] 13:35:00 Test Item Value Reference Range Comments PH ARTERIAL (BEAKER) (test sfpd=024) 7.51 7.35-7.45 PCO2 ARTERIAL (BEAKER) (test vieq=593) 33 mmHg 35-45 PO2 ARTERIAL (BEAKER) (test vtbj=499) 453 mmHg 80-90 O2 SATURATION ARTERIAL (BEAKER) (test hqxw=281) 99.9 % 96.0-97.0 HCO3 ARTERIAL (BEAKER) (test ofhr=110) 28 mmol/L 21-29 BASE EXCESS ARTERIAL (BEAKER) (test yxjg=522) 2.7 mmol/L -2.0-3.0 PATIENT TEMPERATURE (BEAKER) (test onsg=4825) 29.2 C FIO2 (BEAKER) (test bexg=7846) 80.0 % GLUCOSE-STAT [id number] 13:35:00 Test Item Value Reference Range Comments GLUCOSE RANDOM (BEAKER) (test xmwu=049) 130 mg/dL 70-110 HGB/HCT (H&H) - STAT [id number] 13:35:00 Test Item Value Reference Range Comments HEMOGLOBIN (BEAKER) (test aqgc=631) 6.7 g/dL 12.0-15.0 HEMATOCRIT (BEAKER) (test ijfm=876) 20.0 % 36.0-45.0 SODIUM NA-STAT [id number] 13:35:00 Test Item Value Reference Range Comments SODIUM (BEAKER) (test bujl=673) 133 meq/L 135-148 POTASSIUM-STAT [id number] 13:34:00 Test Item Value Reference Range Comments POTASSIUM (BEAKER) (test tlyh=097) 4.2 meq/L 3.6-5.5 BLOOD GAS, [id number] 13:16:00 Test Item Value Reference Range Comments PH ARTERIAL (BEAKER) (test ydci=313) 7.42 7.35-7.45 PCO2 ARTERIAL (BEAKER) (test uzhh=390) 34 mmHg 35-45 PO2 ARTERIAL (BEAKER) (test vkii=693) 375 mmHg 80-90 O2 SATURATION ARTERIAL (BEAKER) (test dbmb=998) 99.8 % 96.0-97.0 HCO3 ARTERIAL (BEAKER) (test vmxt=351) 23 mmol/L 21-29 BASE EXCESS ARTERIAL (BEAKER) (test fmvi=675) -2.5 mmol/L -2.0-3.0 PATIENT TEMPERATURE (BEAKER) (test vvej=3419) 31.5 C FIO2 (BEAKER) (test dhhx=4702) 80.0 % SODIUM NA-STAT [id number] 13:16:00 Test Item Value Reference Range Comments SODIUM (BEAKER) (test pjfc=253) 133 meq/L 135-148 HGB/HCT (H&H) - STAT [id number] 13:16:00 Test Item Value Reference Range Comments HEMOGLOBIN (BEAKER) (test yivp=782) 6.3 g/dL 12.0-15.0 HEMATOCRIT (BEAKER) (test lxde=036) 19.0 % 36.0-45.0 CALCIUM, [id number] 13:15:00 Test Item Value Reference Range Comments CALCIUM IONIZED (BEAKER) (test qorm=374) 0.98 mmol/L 1.12-1.27 PH, BLOOD (BEAKER) (test hwtv=2977) 7.34 BLOOD GAS, [id number] 13:15:00 Test Item Value Reference Range Comments PH VENOUS (BEAKER) (test yfoi=386) 7.39 7.32-7.42 PCO2 VENOUS (BEAKER) (test svbu=818) 38 mmHg 41-51 PO2 VENOUS (BEAKER) (test sdrt=905) 43 mmHg 25-40 O2 SATURATION VENOUS (BEAKER) (test zcat=245) 90.0 % 40.0-70.0 HCO3 VENOUS (BEAKER) (test jviq=926) 24 mmol/L 21-29 BASE EXCESS VENOUS (BEAKER) (test ibdk=333) -2.1 mmol/L -2.0-3.0 PATIENT TEMPERATURE (BEAKER) (test qnxh=0354) 31.5 C FIO2 (BEAKER) (test mgwj=0080) 80.0 % GLUCOSE-STAT [id number] 13:14:00 Test Item Value Reference Range Comments GLUCOSE RANDOM (BEAKER) (test foyn=912) 92 mg/dL 70-110 POTASSIUM-STAT [id number] 13:14:00 Test Item Value Reference Range Comments POTASSIUM (BEAKER) (test dkta=167) 3.9 meq/L 3.6-5.5 BLOOD GAS, [id number] 10:54:00 Test Item Value Reference Range Comments PH ARTERIAL (BEAKER) (test fasp=219) 7.41 7.35-7.45 PCO2 ARTERIAL (BEAKER) (test opyw=289) 39 mmHg 35-45 PO2 ARTERIAL (BEAKER) (test otbh=429) 254 mmHg 80-90 O2 SATURATION ARTERIAL (BEAKER) (test nyhf=741) 99.6 % 96.0-97.0 HCO3 ARTERIAL (BEAKER) (test wsal=394) 25 mmol/L 21-29 BASE EXCESS ARTERIAL (BEAKER) (test igen=353) -0.3 mmol/L -2.0-3.0 PATIENT TEMPERATURE (BEAKER) (test nqcn=7901) 35.4 C FIO2 (BEAKER) (test skjr=0817) 100.0 % HGB/HCT (H&H) - STAT [id number] 10:54:00 Test Item Value Reference Range Comments HEMOGLOBIN (BEAKER) (test ypot=929) 9.3 g/dL 12.0-15.0 HEMATOCRIT (BEAKER) (test dmhu=767) 27.0 % 36.0-45.0 SODIUM NA-STAT [id number] 10:54:00 Test Item Value Reference Range Comments SODIUM (BEAKER) (test rcxk=486) 132 meq/L 135-148 GLUCOSE-STAT [id number] 10:52:00 Test Item Value Reference Range Comments GLUCOSE RANDOM (BEAKER) (test ffrj=105) 94 mg/dL 70-110 POTASSIUM-STAT [id number] 10:52:00 Test Item Value Reference Range Comments POTASSIUM (BEAKER) (test xhxa=398) 4.0 meq/L 3.6-5.5 HEMOGLOBIN [id number] 09:50:00 Test Item Value Reference Range Comments HEMOGLOBIN A1C (BEAKER) (test fysc=427) 10.6 % 4.3-6.1 PLATELET AGGREGATION: FUNCTION [id number] 08:27:00 Test Item Value Reference Range Comments WEAK ADP RESULT(BEAKER) (test 63 % 60-91 zzgl=5901) PLATELET FUNCTION SCREEN 60-100% indicates normal INTERP (BEAKER) (test platelet function rptx=0728) DNAS-AMXENGLKDIS-5509 (BEAKER) Toshia Post MD (electronic (test phgp=3359) signature) PLATELET COUNT AGG (BEAKER) 198 K/CU MM 150-450 (test eywr=1338) for patients on clopidogrel in past two weeksPOCT-GLUCOSE [id number] 08:11: 00 Test Item Value Reference Range Comments POC-GLUCOSE METER (BEAKER) 116 mg/dL 70-110 TESTED AT [facility] [address] [facility] (test fzgc=9653) [facility] [address] [id number] 07:10:00 Test Item Value Reference Range Comments PHOSPHORUS (BEAKER) (test tsjz=251) 4.5 mg/dL 2.3-4.7 [id number] 07:10:00 Test Item Value Reference Range Comments MAGNESIUM (BEAKER) (test umav=882) 2.1 mg/dL 1.6-2.6 BASIC METABOLIC [id number] 07:10:00 Test Item Value Reference Range Comments SODIUM (BEAKER) (test 135 meq/L 136-145 hvgp=495) POTASSIUM (BEAKER) (test 4.4 meq/L 3.5-5.1 oghw=257) CHLORIDE (BEAKER) (test 106 meq/L 98-107 fjbs=605) CO2 (BEAKER) (test 23 meq/L 22-29 ebhn=737) BLOOD UREA NITROGEN 40 mg/dL 7-21 (BEAKER) (test oabs=707) CREATININE (BEAKER) (test 1.67 mg/dL 0.57-1.25 wnub=058) GLUCOSE RANDOM (BEAKER) 107 mg/dL 70-105 (test tuhb=268) CALCIUM (BEAKER) (test 8.3 mg/dL 8.4-10.2 iolm=573) EGFR (BEAKER) (test 31 mL/min/1.73 sq m ESTIMATED GFR IS NOT qdli=3591) ACCURATE CREATININE CLEARANCE IN PREDICTING GLOMERULAR FILTRATION RATE. ESTIMATED GFR IS NOT APPLICABLE FOR DIALYSIS PATIENTS. B-TYPE NATRIURETIC FACTOR (BNP)2017-05-20 06:56:00 Test Item Value Reference Range Comments B-TYPE NATRIURETIC PEPTIDE (BEAKER) (test 552 pg/mL 0-100 tfdw=309) CBC W/PLT COUNT & AUTO [id number] 06:46:00 Test Item Value Reference Range Comments WHITE BLOOD CELL COUNT (BEAKER) (test lfgg=702) 6.2 K/ L 3.5-10.5 RED BLOOD CELL COUNT (BEAKER) (test urqx=031) 3.56 M/ L 3.93-5.22 HEMOGLOBIN (BEAKER) (test cxsg=083) 9.1 GM/DL 11.2-15.7 HEMATOCRIT (BEAKER) (test drgj=415) 29.5 % 34.1-44.9 MEAN CORPUSCULAR VOLUME (BEAKER) (test yfcl=152) 82.9 fL 79.4-94.8 MEAN CORPUSCULAR HEMOGLOBIN (BEAKER) (test 25.6 pg 25.6-32.2 tjal=334) MEAN CORPUSCULAR HEMOGLOBIN CONC (BEAKER) (test 30.8 GM/DL 32.2-35.5 abdg=203) RED CELL DISTRIBUTION WIDTH (BEAKER) (test 14.4 % 11.7-14.4 sjlg=135) PLATELET COUNT (BEAKER) (test vzhp=672) 222 K/CU MM 150-450 MEAN PLATELET VOLUME (BEAKER) (test mupo=802) 10.5 fL 9.4-12.3 NUCLEATED RED BLOOD CELLS (BEAKER) (test 0 /100 WBC 0-0 vbcu=210) NEUTROPHILS RELATIVE PERCENT (BEAKER) (test 47 % hykv=533) LYMPHOCYTES RELATIVE PERCENT (BEAKER) (test 39 % asjm=701) MONOCYTES RELATIVE PERCENT (BEAKER) (test 8 % wkmf=100) EOSINOPHILS RELATIVE PERCENT (BEAKER) (test 5 % zdco=324) BASOPHILS RELATIVE PERCENT (BEAKER) (test 1 % jkjv=639) NEUTROPHILS ABSOLUTE COUNT (BEAKER) (test 2.90 K/ L 1.56-6.13 fvew=330) LYMPHOCYTES ABSOLUTE COUNT (BEAKER) (test 2.37 K/ L 1.18-3.74 clmw=476) MONOCYTES ABSOLUTE COUNT (BEAKER) (test 0.49 K/ L 0.24-0.36 snns=349) EOSINOPHILS ABSOLUTE COUNT (BEAKER) (test 0.30 K/ L 0.04-0.36 ianx=983) BASOPHILS ABSOLUTE COUNT (BEAKER) (test 0.08 K/ L 0.01-0.08 rklh=400) IMMATURE GRANULOCYTES-RELATIVE PERCENT (BEAKER) 0 % 0-1 (test ltaf=9298) CALCIUM, [id number] 06:40:00 Test Item Value Reference Range Comments CALCIUM IONIZED (BEAKER) (test zzkw=185) 1.06 mmol/L 1.12-1.27 PH, BLOOD (BEAKER) (test ueao=5158) 7.39 POCT-GLUCOSE [id number] 23:22:00 Test Item Value Reference Range Comments POC-GLUCOSE METER (BEAKER) 165 mg/dL 70-110 TESTED AT [facility] [address] [facility] (test ylcu=5039) [facility] [address] URINE PROTEIN ELECTROPHORESIS, [id number] 18:02:00 Test Item Value Reference Range Comments PROTEIN, URINE (BEAKER) (test 305 mg/dL 0-14 oobj=9399) ALBUMIN URINE ELP (BEAKER) 70.9 % (test ctwu=4887) GAMMA GLOBULIN URINE (BEAKER) 29.1 % (test itnv=3290) UPEP, ID-438 (BEAKER) (test No monoclonal bands detected. ptzc=0483) [id number] (BEAKER) Rocio Galindo MD (test jkqw=4359) (electronic signature) PROTEIN ELECTROPHORESIS, [id number] 17:57:00 Test Item Value Reference Range Comments ALBUMIN FRACTION (BEAKER) 2.5 g/dL 3.5-5.5 (test iene=501) ALPHA 1 FRACTION (BEAKER) 0.3 g/dL 0.2-0.4 (test hnye=045) ALPHA 2 FRACTION (BEAKER) 0.9 g/dL 0.5-0.9 (test mnqm=249) BETA FRACTION (BEAKER) (test 0.8 g/dL 0.6-1.1 dxyk=053) GAMMA GLOBULIN FRACTION 1.0 g/dL 0.7-1.7 (BEAKER) (test njjb=911) INTERPRETATION-119 (BEAKER) Decreased albumin with (test xaub=6546) concurrent relative increases in all globulin fractions. No monoclonal bands detected. [id number] (BEAKER) Rocio Galindo MD (test vhnv=6696) (electronic signature) PROTEIN TOTAL SERUM, SPEP 5.5 gm/dL 6.0-8.3 (BEAKER) (test nbnd=1787) POCT-GLUCOSE [id number] 17:15:00 Test Item Value Reference Range Comments POC-GLUCOSE METER (BEAKER) 209 mg/dL 70-110 TESTED AT [facility] [address] [facility] (test asai=0626) [facility] [address] BLOOD GAS, [id number] 15:54:00 Test Item Value Reference Range Comments PH ARTERIAL (BEAKER) (test zktu=478) 7.45 7.35-7.45 PCO2 ARTERIAL (BEAKER) (test tbzz=491) 38 mmHg 35-45 PO2 ARTERIAL (BEAKER) (test lfbg=369) 69 mmHg 80-90 O2 SATURATION ARTERIAL (BEAKER) (test mlpr=448) 94.5 % 96.0-97.0 HCO3 ARTERIAL (BEAKER) (test axgk=265) 25 mmol/L 21-29 BASE EXCESS ARTERIAL (BEAKER) (test mkyy=660) 1.3 mmol/L -2.0-3.0 PATIENT TEMPERATURE (BEAKER) (test agws=8634) 37.0 C FIO2 (BEAKER) (test fiqk=5182) 36.0 % RAD, CHEST, 1 VIEW, NON [id number] 14:07:00Reason for exam:->SOB, hypoxemiaShould this be performed [...] Eder Cespedes Verified Date/Time: 2017 14:07:07 Reading Location:[facility] B1 [id number] Consult Reading Room POCT- GLUCOSE [id number] 11:26:00 Test Item Value Reference Range Comments POC-GLUCOSE METER (BEAKER) 262 mg/dL 70-110 TESTED AT [place] [id number] [facility] (test zrwk=6179) [facility] [address] POCT-GLUCOSE [id number] 07:37:00 Test Item Value Reference Range Comments POC-GLUCOSE METER (BEAKER) 170 mg/dL 70-110 TESTED AT [address] (test ucmp=3149) [facility] [address] CALCIUM, [id number] 06:06:00 Test Item Value Reference Range Comments CALCIUM IONIZED (BEAKER) (test plby=504) 1.05 mmol/L 1.12-1.27 PH, BLOOD (BEAKER) (test kvgn=1904) 7.41 [id number] 05:38:00 Test Item Value Reference Range Comments PHOSPHORUS (BEAKER) (test ccoz=409) 3.9 mg/dL 2.3-4.7 [id number] 05:38:00 Test Item Value Reference Range Comments MAGNESIUM (BEAKER) (test qinw=682) 2.2 mg/dL 1.6-2.6 BASIC METABOLIC [id number] 05:38:00 Test Item Value Reference Range Comments SODIUM (BEAKER) (test 135 meq/L 136-145 blfl=436) POTASSIUM (BEAKER) (test 4.5 meq/L 3.5-5.1 fant=817) CHLORIDE (BEAKER) (test 105 meq/L 98-107 vhuj=666) CO2 (BEAKER) (test 24 meq/L 22-29 vxgl=678) BLOOD UREA NITROGEN 41 mg/dL 7-21 (BEAKER) (test ibhd=365) CREATININE (BEAKER) (test 1.74 mg/dL 0.57-1.25 jkjo=724) GLUCOSE RANDOM (BEAKER) 174 mg/dL 70-105 (test pvzd=469) CALCIUM (BEAKER) (test 8.4 mg/dL 8.4-10.2 cixz=224) EGFR (BEAKER) (test 30 mL/min/1.73 sq m ESTIMATED GFR IS NOT qbzw=6248) ACCURATE CREATININE CLEARANCE IN PREDICTING GLOMERULAR FILTRATION RATE. ESTIMATED GFR IS NOT APPLICABLE FOR DIALYSIS PATIENTS. CBC W/PLT COUNT & AUTO [id number] 05:09:00 Test Item Value Reference Range Comments WHITE BLOOD CELL COUNT (BEAKER) (test pkoz=225) 8.5 K/ L 3.5-10.5 RED BLOOD CELL COUNT (BEAKER) (test yoea=559) 3.54 M/ L 3.93-5.22 HEMOGLOBIN (BEAKER) (test wcuu=751) 9.1 GM/DL 11.2-15.7 HEMATOCRIT (BEAKER) (test odjf=899) 29.1 % 34.1-44.9 MEAN CORPUSCULAR VOLUME (BEAKER) (test qelv=940) 82.2 fL 79.4-94.8 MEAN CORPUSCULAR HEMOGLOBIN (BEAKER) (test 25.7 pg 25.6-32.2 mlbm=495) MEAN CORPUSCULAR HEMOGLOBIN CONC (BEAKER) (test 31.3 GM/DL 32.2-35.5 kvgl=074) RED CELL DISTRIBUTION WIDTH (BEAKER) (test 14.5 % 11.7-14.4 ccmz=305) PLATELET COUNT (BEAKER) (test qrld=251) 201 K/CU MM 150-450 MEAN PLATELET VOLUME (BEAKER) (test loyj=690) 10.7 fL 9.4-12.3 NUCLEATED RED BLOOD CELLS (BEAKER) (test 0 /100 WBC 0-0 wmal=170) NEUTROPHILS RELATIVE PERCENT (BEAKER) (test 56 % vmls=708) LYMPHOCYTES RELATIVE PERCENT (BEAKER) (test 32 % mgph=652) MONOCYTES RELATIVE PERCENT (BEAKER) (test 7 % uuas=248) EOSINOPHILS RELATIVE PERCENT (BEAKER) (test 4 % omro=570) BASOPHILS RELATIVE PERCENT (BEAKER) (test 1 % uvch=961) NEUTROPHILS ABSOLUTE COUNT (BEAKER) (test 4.80 K/ L 1.56-6.13 gsly=449) LYMPHOCYTES ABSOLUTE COUNT (BEAKER) (test 2.73 K/ L 1.18-3.74 bgrm=605) MONOCYTES ABSOLUTE COUNT (BEAKER) (test 0.62 K/ L 0.24-0.36 msta=070) EOSINOPHILS ABSOLUTE COUNT (BEAKER) (test 0.30 K/ L 0.04-0.36 heja=473) BASOPHILS ABSOLUTE COUNT (BEAKER) (test 0.06 K/ L 0.01-0.08 ejmi=372) IMMATURE GRANULOCYTES-RELATIVE PERCENT (BEAKER) 0 % 0-1 (test zuky=1221) POCT-GLUCOSE [id number] 22:08:00 Test Item Value Reference Range Comments POC-GLUCOSE METER (BEAKER) 263 mg/dL 70-110 TESTED AT [address] (test rvmu=0993) [place] [id number] POCT-GLUCOSE [id number] 17:20:00 Test Item Value Reference Range Comments POC-GLUCOSE METER (BEAKER) 233 mg/dL 70-110 TESTED AT [address] (test gmkc=9077) [place] [id number] POCT-GLUCOSE [id number] 08:28:00 Test Item Value Reference Range Comments POC-GLUCOSE METER (BEAKER) 154 mg/dL 70-110 TESTED AT [address] (test eoiz=0368) [place] [id number] BASIC METABOLIC [id number] 06:41:00 Test Item Value Reference Range Comments SODIUM (BEAKER) (test 135 meq/L 136-145 nvni=259) POTASSIUM (BEAKER) (test 4.6 meq/L 3.5-5.1 gieh=387) CHLORIDE (BEAKER) (test 104 meq/L 98-107 rfak=598) CO2 (BEAKER) (test 23 meq/L 22-29 uyto=564) BLOOD UREA NITROGEN 39 mg/dL 7-21 (BEAKER) (test tzpr=327) CREATININE (BEAKER) (test 1.77 mg/dL 0.57-1.25 nvnf=333) GLUCOSE RANDOM (BEAKER) 173 mg/dL 70-105 (test nlxm=562) CALCIUM (BEAKER) (test 8.6 mg/dL 8.4-10.2 snwr=510) EGFR (BEAKER) (test 29 mL/min/1.73 sq m ESTIMATED GFR IS NOT ichi=7061) ACCURATE CREATININE CLEARANCE IN PREDICTING GLOMERULAR FILTRATION RATE. ESTIMATED GFR IS NOT APPLICABLE FOR DIALYSIS PATIENTS. [id number] 06:35:00 Test Item Value Reference Range Comments PHOSPHORUS (BEAKER) (test hgqf=122) 4.1 mg/dL 2.3-4.7 [id number] 06:35:00 Test Item Value Reference Range Comments MAGNESIUM (BEAKER) (test cjqv=978) 2.1 mg/dL 1.6-2.6 CALCIUM, [id number] 06:22:00 Test Item Value Reference Range Comments CALCIUM IONIZED (BEAKER) (test krru=834) 1.10 mmol/L 1.12-1.27 PH, BLOOD (BEAKER) (test qzfd=3545) 7.38 CBC W/PLT COUNT & AUTO [id number] 06:04:00 Test Item Value Reference Range Comments WHITE BLOOD CELL COUNT (BEAKER) (test yfyq=137) 9.3 K/ L 3.5-10.5 RED BLOOD CELL COUNT (BEAKER) (test hkjk=709) 4.15 M/ L 3.93-5.22 HEMOGLOBIN (BEAKER) (test syzb=491) 10.6 GM/DL 11.2-15.7 HEMATOCRIT (BEAKER) (test fkag=643) 34.2 % 34.1-44.9 MEAN CORPUSCULAR VOLUME (BEAKER) (test aqwx=114) 82.4 fL 79.4-94.8 MEAN CORPUSCULAR HEMOGLOBIN (BEAKER) (test 25.5 pg 25.6-32.2 bobv=689) MEAN CORPUSCULAR HEMOGLOBIN CONC (BEAKER) (test 31.0 GM/DL 32.2-35.5 vnff=990) RED CELL DISTRIBUTION WIDTH (BEAKER) (test 14.6 % 11.7-14.4 aryh=855) PLATELET COUNT (BEAKER) (test dige=824) 183 K/CU MM 150-450 MEAN PLATELET VOLUME (BEAKER) (test qscm=234) 11.0 fL 9.4-12.3 NUCLEATED RED BLOOD CELLS (BEAKER) (test 0 /100 WBC 0-0 sxak=828) NEUTROPHILS RELATIVE PERCENT (BEAKER) (test 66 % utrp=651) LYMPHOCYTES RELATIVE PERCENT (BEAKER) (test 24 % iyly=756) MONOCYTES RELATIVE PERCENT (BEAKER) (test 7 % vkyc=416) EOSINOPHILS RELATIVE PERCENT (BEAKER) (test 3 % ndxy=664) BASOPHILS RELATIVE PERCENT (BEAKER) (test 1 % pvpj=153) NEUTROPHILS ABSOLUTE COUNT (BEAKER) (test 6.15 K/ L 1.56-6.13 ncri=294) LYMPHOCYTES ABSOLUTE COUNT (BEAKER) (test 2.20 K/ L 1.18-3.74 trcf=375) MONOCYTES ABSOLUTE COUNT (BEAKER) (test 0.62 K/ L 0.24-0.36 sdvi=118) EOSINOPHILS ABSOLUTE COUNT (BEAKER) (test 0.24 K/ L 0.04-0.36 tctc=067) BASOPHILS ABSOLUTE COUNT (BEAKER) (test 0.06 K/ L 0.01-0.08 suhr=219) IMMATURE GRANULOCYTES-RELATIVE PERCENT (BEAKER) 0 % 0-1 (test qnng=5187) POCT-GLUCOSE [id number] 03:44:00 Test Item Value Reference Range Comments POC-GLUCOSE METER (BEAKER) 220 mg/dL 70-110 TESTED AT [address] (test paiu=0266) [place] [address] POCT-GLUCOSE [id number] 18:27:00 Test Item Value Reference Range Comments POC-GLUCOSE METER (BEAKER) 256 mg/dL 70-110 TESTED AT [address] (test wsxj=4652) [place] [address] POCT-GLUCOSE [id number] 15:45:00 Test Item Value Reference Range Comments POC-GLUCOSE METER (BEAKER) 278 mg/dL 70-110 TESTED AT [address] (test hirc=3435) [place] [address] POCT-GLUCOSE [id number] 13:22:00 Test Item Value Reference Range Comments POC-GLUCOSE METER (BEAKER) 278 mg/dL 70-110 TESTED AT [address] (test rzhs=2854) [place] [address] PLATELET AGGREGATION: FUNCTION [id number] 13:18:00 Test Item Value Reference Range Comments WEAK ADP RESULT(BEAKER) (test 66 % 60-91 fkjb=8648) PLATELET FUNCTION SCREEN 60-100% indicates normal INTERP (BEAKER) (test platelet function imxb=4689) TILB-DFIUZZZMJUQ-[id number] (BEAKER) Rigoberto Duenas MD (electronic (test xxob=8568) signature) PLATELET COUNT AGG (BEAKER) 204 K/CU MM 150-450 (test mefs=9115) POCT-GLUCOSE [id number] 08:27:00 Test Item Value Reference Range Comments POC-GLUCOSE METER (BEAKER) 189 mg/dL 70-110 TESTED AT [facility] [address] [facility] (test fdnp=3705) [facility] [address] CALCIUM, [id number] 06:12:00 Test Item Value Reference Range Comments CALCIUM IONIZED (BEAKER) (test ihen=902) 1.07 mmol/L 1.12-1.27 PH, BLOOD (BEAKER) (test hdaz=4188) 7.36 [id number] 05:43:00 Test Item Value Reference Range Comments PHOSPHORUS (BEAKER) (test dswd=683) 3.6 mg/dL 2.3-4.7 [id number] 05:43:00 Test Item Value Reference Range Comments MAGNESIUM (BEAKER) (test jztl=846) 2.1 mg/dL 1.6-2.6 BASIC METABOLIC [id number] 05:43:00 Test Item Value Reference Range Comments SODIUM (BEAKER) (test 137 meq/L 136-145 ddbs=064) POTASSIUM (BEAKER) (test 4.7 meq/L 3.5-5.1 pxir=515) CHLORIDE (BEAKER) (test 107 meq/L 98-107 tgui=331) CO2 (BEAKER) (test 24 meq/L 22-29 ewpn=790) BLOOD UREA NITROGEN 38 mg/dL 7-21 (BEAKER) (test bstt=695) CREATININE (BEAKER) (test 1.72 mg/dL 0.57-1.25 llwu=997) GLUCOSE RANDOM (BEAKER) 198 mg/dL 70-105 (test txtz=760) CALCIUM (BEAKER) (test 8.3 mg/dL 8.4-10.2 zuuu=929) EGFR (BEAKER) (test 30 mL/min/1.73 sq m ESTIMATED GFR IS NOT ldfy=2099) ACCURATE CREATININE CLEARANCE IN PREDICTING GLOMERULAR FILTRATION RATE. ESTIMATED GFR IS NOT APPLICABLE FOR DIALYSIS PATIENTS. CBC W/PLT COUNT & AUTO [id number] 05:05:00 Test Item Value Reference Range Comments WHITE BLOOD CELL COUNT (BEAKER) (test mujh=879) 8.6 K/ L 3.5-10.5 RED BLOOD CELL COUNT (BEAKER) (test uins=845) 4.20 M/ L 3.93-5.22 HEMOGLOBIN (BEAKER) (test vpxa=971) 10.7 GM/DL 11.2-15.7 HEMATOCRIT (BEAKER) (test tolc=641) 34.7 % 34.1-44.9 MEAN CORPUSCULAR VOLUME (BEAKER) (test jpub=682) 82.6 fL 79.4-94.8 MEAN CORPUSCULAR HEMOGLOBIN (BEAKER) (test 25.5 pg 25.6-32.2 tczp=862) MEAN CORPUSCULAR HEMOGLOBIN CONC (BEAKER) (test 30.8 GM/DL 32.2-35.5 dwss=652) RED CELL DISTRIBUTION WIDTH (BEAKER) (test 14.7 % 11.7-14.4 ihho=770) PLATELET COUNT (BEAKER) (test yfgq=414) 198 K/CU MM 150-450 MEAN PLATELET VOLUME (BEAKER) (test eash=542) 11.1 fL 9.4-12.3 NUCLEATED RED BLOOD CELLS (BEAKER) (test 0 /100 WBC 0-0 gcal=359) NEUTROPHILS RELATIVE PERCENT (BEAKER) (test 63 % royj=305) LYMPHOCYTES RELATIVE PERCENT (BEAKER) (test 28 % ynjl=131) MONOCYTES RELATIVE PERCENT (BEAKER) (test 6 % vqfa=109) EOSINOPHILS RELATIVE PERCENT (BEAKER) (test 3 % ufcu=461) BASOPHILS RELATIVE PERCENT (BEAKER) (test 1 % zjre=011) NEUTROPHILS ABSOLUTE COUNT (BEAKER) (test 5.41 K/ L 1.56-6.13 qkgz=626) LYMPHOCYTES ABSOLUTE COUNT (BEAKER) (test 2.37 K/ L 1.18-3.74 kcdb=533) MONOCYTES ABSOLUTE COUNT (BEAKER) (test 0.50 K/ L 0.24-0.36 pigr=942) EOSINOPHILS ABSOLUTE COUNT (BEAKER) (test 0.27 K/ L 0.04-0.36 fobu=847) BASOPHILS ABSOLUTE COUNT (BEAKER) (test 0.06 K/ L 0.01-0.08 vxza=072) IMMATURE GRANULOCYTES-RELATIVE PERCENT (BEAKER) 0 % 0-1 (test oxcc=8490) POCT-GLUCOSE [id number] 21:32:00 Test Item Value Reference Range Comments POC-GLUCOSE METER (BEAKER) 176 mg/dL 70-110 TESTED AT [address] (test rsye=9276) [place] [address] POCT-GLUCOSE [id number] 20:27:00 Test Item Value Reference Range Comments POC-GLUCOSE METER (BEAKER) 161 mg/dL 70-110 TESTED AT [address] (test iawi=6903) [place] [address] POCT-GLUCOSE [id number] 18:23:00 Test Item Value Reference Range Comments POC-GLUCOSE METER (BEAKER) 185 mg/dL 70-110 TESTED AT [address] (test glkr=2618) [place] [address] POCT-GLUCOSE [id number] 13:26:00 Test Item Value Reference Range Comments POC-GLUCOSE METER (BEAKER) 282 mg/dL 70-110 TESTED AT [address] (test lmuq=8309) [place] [address] URINE [id number] 10:12:00 Test Item Value Reference Range Comments CULTURE (BEAKER) (test upjj=5897) >100,000 col/mL skin todd POCT-GLUCOSE [id number] 09:01:00 Test Item Value Reference Range Comments POC-GLUCOSE METER (BEAKER) 268 mg/dL 70-110 TESTED AT [address] (test pwrv=6843) [place] [address] CALCIUM, [id number] 05:39:00 Test Item Value Reference Range Comments CALCIUM IONIZED (BEAKER) (test ulzt=335) 0.84 mmol/L 1.12-1.27 PH, BLOOD (BEAKER) (test hhui=3340) 7.35 BASIC METABOLIC [id number] 05:07:00 Test Item Value Reference Range Comments SODIUM (BEAKER) (test 135 meq/L 136-145 uokr=876) POTASSIUM (BEAKER) (test 4.9 meq/L 3.5-5.1 gidn=134) CHLORIDE (BEAKER) (test 106 meq/L 98-107 clda=744) CO2 (BEAKER) (test 22 meq/L 22-29 vwvt=283) BLOOD UREA NITROGEN 43 mg/dL 7-21 (BEAKER) (test uomw=227) CREATININE (BEAKER) (test 2.00 mg/dL 0.57-1.25 ndty=481) GLUCOSE RANDOM (BEAKER) 161 mg/dL 70-105 (test cmvl=834) CALCIUM (BEAKER) (test 8.2 mg/dL 8.4-10.2 duke=309) EGFR (BEAKER) (test 25 mL/min/1.73 sq m ESTIMATED GFR IS NOT lvog=2519) ACCURATE CREATININE CLEARANCE IN PREDICTING GLOMERULAR FILTRATION RATE. ESTIMATED GFR IS NOT APPLICABLE FOR DIALYSIS PATIENTS. [id number] 05:06:00 Test Item Value Reference Range Comments PHOSPHORUS (BEAKER) (test ylyp=421) 3.2 mg/dL 2.3-4.7 [id number] 05:06:00 Test Item Value Reference Range Comments MAGNESIUM (BEAKER) (test pqrt=513) 2.3 mg/dL 1.6-2.6 CBC W/PLT COUNT & AUTO [id number] 04:42:00 Test Item Value Reference Range Comments WHITE BLOOD CELL COUNT (BEAKER) (test jvke=909) 9.5 K/ L 3.5-10.5 RED BLOOD CELL COUNT (BEAKER) (test dmcw=233) 4.17 M/ L 3.93-5.22 HEMOGLOBIN (BEAKER) (test bnnx=622) 10.5 GM/DL 11.2-15.7 HEMATOCRIT (BEAKER) (test ojug=162) 34.2 % 34.1-44.9 MEAN CORPUSCULAR VOLUME (BEAKER) (test ziqx=011) 82.0 fL 79.4-94.8 MEAN CORPUSCULAR HEMOGLOBIN (BEAKER) (test 25.2 pg 25.6-32.2 sisg=047) MEAN CORPUSCULAR HEMOGLOBIN CONC (BEAKER) (test 30.7 GM/DL 32.2-35.5 ihns=332) RED CELL DISTRIBUTION WIDTH (BEAKER) (test 14.6 % 11.7-14.4 wzkb=262) PLATELET COUNT (BEAKER) (test idbo=723) 177 K/CU MM 150-450 MEAN PLATELET VOLUME (BEAKER) (test cyfi=200) 11.1 fL 9.4-12.3 NUCLEATED RED BLOOD CELLS (BEAKER) (test 0 /100 WBC 0-0 hlnc=834) NEUTROPHILS RELATIVE PERCENT (BEAKER) (test 55 % mflv=441) LYMPHOCYTES RELATIVE PERCENT (BEAKER) (test 36 % idho=657) MONOCYTES RELATIVE PERCENT (BEAKER) (test 6 % wttj=414) EOSINOPHILS RELATIVE PERCENT (BEAKER) (test 2 % otca=057) BASOPHILS RELATIVE PERCENT (BEAKER) (test 1 % qffh=117) NEUTROPHILS ABSOLUTE COUNT (BEAKER) (test 5.20 K/ L 1.56-6.13 lgbf=925) LYMPHOCYTES ABSOLUTE COUNT (BEAKER) (test 3.37 K/ L 1.18-3.74 yihu=888) MONOCYTES ABSOLUTE COUNT (BEAKER) (test 0.59 K/ L 0.24-0.36 bcud=288) EOSINOPHILS ABSOLUTE COUNT (BEAKER) (test 0.21 K/ L 0.04-0.36 fgmd=775) BASOPHILS ABSOLUTE COUNT (BEAKER) (test 0.07 K/ L 0.01-0.08 zqct=824) IMMATURE GRANULOCYTES-RELATIVE PERCENT (BEAKER) 0 % 0-1 (test uskg=3050) RHEUMATOID FACTOR AB, REFLEX TO [id number] 01:52:00 Test Item Value Reference Range Comments RHEUMATOID FACTOR (BEAKER) (test ybfd=573) Negative POCT-GLUCOSE [id number] 21:57:00 Test Item Value Reference Range Comments POC-GLUCOSE METER (BEAKER) 105 mg/dL 70-110 TESTED AT [place] [address] [facility] (test jfuy=4142) [place] [id number] POCT-GLUCOSE [id number] 18:11:00 Test Item Value Reference Range Comments POC-GLUCOSE METER (BEAKER) 312 mg/dL 70-110 Notified GUILHERME PIERRE/TESTED AT [facility] (test vodz=3446) [address] [place] [address] PET, CARDIAC PERFUSION MULTIPLE STUDIES, REST AND [id number] 16:28: 00Reason for exam:->pvcs, known cadFINAL REPORT PROCEDURE: Rest/Stress MYOCARDIAL PERFUSION PET with regadenoson\XA9\ CPT CODE: 50446 INDICATION: Defined extent and severity of known [...] 23% . LVEF at stress is 36%. Pencil Inspector CT images revealed a right pleural effusion [...] pleural and pericardial effusions. 7. No previous [facility] study for comparison. NONINVASIVE RISK STRATIFICATION: The above findings are considered high risk (>3% annual mortality rate) based on the following criteria: - Severe resting left ventricular dysfunction (LVEF 35%)- Stress-induced large perfusion defect ( particularly if anterior)(JACC. 2012;59(9):857-81.) Signed: Last Lopez MDReport Verified Date/Time: 05/15/2017 16:28:12 Reading Location: [address] [facility], CHEST, 1 VIEW, NON [id number] 15:56:00Reason for exam:->SOBShould this be performed at the bedside?->YesFINAL REPORT Comparison: 05/14/2017 TECHNIQUE: Single view of the chest FINDINGS: There is a small right pleural effusion with nonspecific airspace disease. This is unchanged. Left lung is grossly clear. Cardiac silhouette is enlarged. IMPRESSION: 1. No acute cardiopulmonary disease. Signed : Sixto Monk MDReport Verified Date/Time: 05/15/2017 15:56:39 Reading Location : [facility] Radiology Reading Room POCT-GLUCOSE [id number] 12:54:00 Test Item Value Reference Range Comments POC-GLUCOSE METER (BEAKER) 308 mg/dL 70-110 Notified GUILHERME PIERRE/TESTED AT [facility] (test rora=3829) [address] [facility] [address] U/S, RENAL WITH [id number] 11:04:00Reason for exam:->tracy, htnShould this be performed [...] the resistive indices throughout. Signed : [facility] Verified Date/Time: 05/15/2017 11:04:01 Reading Location : [place] [id number] Ultrasound Reading Room ANA TITER AND [id number] 10:57:00 Test Item Value Reference Range Comments ROGER TITER (BEAKER) (test aial=3080) :160 ROGER PATTERN (BEAKER) (test kljk=4435) Speckled ANTI-NUCLEAR ANTIBODY (ROGER)2017-05-15 10:56:00 Test Item Value Reference Range Comments ANTI-NUCLEAR ANTIBODY (ROGER) (BEAKER) (test Positive Negative iych=266) CALCIUM, [id number] 06:00:00 Test Item Value Reference Range Comments CALCIUM IONIZED (BEAKER) (test rqra=586) 1.07 mmol/L 1.12-1.27 PH, BLOOD (BEAKER) (test jfdy=9633) 7.28 HEPATITIS PANEL, [id number] 05:01:00 Test Item Value Reference Range Comments HEPATITIS A IGM ANTIBODY (BEAKER) (test Nonreactive Nonreactive srns=910) HEPATITIS B CORE IGM ANTIBODY (BEAKER) (test Nonreactive Nonreactive fdti=425) HEPATITIS C ANTIBODY (BEAKER) (test gvld=229) Nonreactive Nonreactive HEPATITIS B SURFACE ANTIGEN (2) (BEAKER) (test Nonreactive Nonreactive wdkk=3580) BASIC METABOLIC [id number] 04:48:00 Test Item Value Reference Range Comments SODIUM (BEAKER) (test 135 meq/L 136-145 qwka=703) POTASSIUM (BEAKER) (test 5.2 meq/L 3.5-5.1 hdtu=750) CHLORIDE (BEAKER) (test 104 meq/L 98-107 tmhx=557) CO2 (BEAKER) (test 22 meq/L 22-29 jpmo=426) BLOOD UREA NITROGEN 46 mg/dL 7-21 (BEAKER) (test rola=147) CREATININE (BEAKER) (test 2.64 mg/dL 0.57-1.25 pkzw=248) GLUCOSE RANDOM (BEAKER) 176 mg/dL 70-105 (test kgjr=936) CALCIUM (BEAKER) (test 8.2 mg/dL 8.4-10.2 nyrt=382) EGFR (BEAKER) (test 18 mL/min/1.73 sq m ESTIMATED GFR IS NOT yafo=9013) ACCURATE CREATININE CLEARANCE IN PREDICTING GLOMERULAR FILTRATION RATE. ESTIMATED GFR IS NOT APPLICABLE FOR DIALYSIS PATIENTS. URIC [id number] 04:41:00 Test Item Value Reference Range Comments URIC ACID (BEAKER) (test iute=668) 10.3 mg/dL 2.6-7.2 [id number] 04:41:00 Test Item Value Reference Range Comments MAGNESIUM (BEAKER) (test abww=801) 2.0 mg/dL 1.6-2.6 [id number] 04:41:00 Test Item Value Reference Range Comments PHOSPHORUS (BEAKER) (test robr=008) 4.2 mg/dL 2.3-4.7 COMPLEMENT COMPONENT [id number] 04:38:00 Test Item Value Reference Range Comments C4 COMPLEMENT (BEAKER) (test otrs=422) 28 mg/dL 15-57 COMPLEMENT COMPONENT [id number] 04:38:00 Test Item Value Reference Range Comments C3 COMPLEMENT (BEAKER) (test tdky=445) 103 mg/dL 82-193 CBC W/PLT COUNT & AUTO [id number] 04:22:00 Test Item Value Reference Range Comments WHITE BLOOD CELL COUNT (BEAKER) (test fhds=985) 11.0 K/ L 3.5-10.5 RED BLOOD CELL COUNT (BEAKER) (test wjhx=114) 4.25 M/ L 3.93-5.22 HEMOGLOBIN (BEAKER) (test lzaa=110) 10.6 GM/DL 11.2-15.7 HEMATOCRIT (BEAKER) (test ctbo=382) 35.3 % 34.1-44.9 MEAN CORPUSCULAR VOLUME (BEAKER) (test eyiv=212) 83.1 fL 79.4-94.8 MEAN CORPUSCULAR HEMOGLOBIN (BEAKER) (test 24.9 pg 25.6-32.2 rnax=338) MEAN CORPUSCULAR HEMOGLOBIN CONC (BEAKER) (test 30.0 GM/DL 32.2-35.5 vglp=365) RED CELL DISTRIBUTION WIDTH (BEAKER) (test 14.5 % 11.7-14.4 oyht=613) PLATELET COUNT (BEAKER) (test tanl=861) 185 K/CU MM 150-450 MEAN PLATELET VOLUME (BEAKER) (test lzpk=627) 10.9 fL 9.4-12.3 NUCLEATED RED BLOOD CELLS (BEAKER) (test 0 /100 WBC 0-0 vsps=967) NEUTROPHILS RELATIVE PERCENT (BEAKER) (test 61 % kstk=877) LYMPHOCYTES RELATIVE PERCENT (BEAKER) (test 31 % quug=016) MONOCYTES RELATIVE PERCENT (BEAKER) (test 5 % isyh=344) EOSINOPHILS RELATIVE PERCENT (BEAKER) (test 2 % mjbm=066) BASOPHILS RELATIVE PERCENT (BEAKER) (test 1 % txyg=244) NEUTROPHILS ABSOLUTE COUNT (BEAKER) (test 6.72 K/ L 1.56-6.13 okdr=665) LYMPHOCYTES ABSOLUTE COUNT (BEAKER) (test 3.35 K/ L 1.18-3.74 koep=640) MONOCYTES ABSOLUTE COUNT (BEAKER) (test 0.59 K/ L 0.24-0.36 dmxp=066) EOSINOPHILS ABSOLUTE COUNT (BEAKER) (test 0.21 K/ L 0.04-0.36 dpne=080) BASOPHILS ABSOLUTE COUNT (BEAKER) (test 0.06 K/ L 0.01-0.08 akcm=365) IMMATURE GRANULOCYTES-RELATIVE PERCENT (BEAKER) 0 % 0-1 (test diky=9584) POCT-GLUCOSE [id number] 21:46:00 Test Item Value Reference Range Comments POC-GLUCOSE METER (BEAKER) 173 mg/dL 70-110 TESTED AT [address] (test haye=4412) [place] [address] POCT-GLUCOSE [id number] 21:46:00 Test Item Value Reference Range Comments POC-GLUCOSE METER (BEAKER) 154 mg/dL 70-110 TESTED AT [address] (test nhto=4960) [place] [address] POCT-GLUCOSE [id number] 18:17:00 Test Item Value Reference Range Comments POC-GLUCOSE METER (BEAKER) 175 mg/dL 70-110 TESTED AT [address] (test hqcn=1956) [place] [address] RAD, CHEST, 1 VIEW, NON [id number] 14:56:00Reason for exam:->SOBShould this be performed at the bedside?->YesFINAL REPORT INDICATION: SOB COMPARISON: May 13, 2017 TECHNIQUE: Chest radiograph, single view, portable technique. FINDINGS / IMPRESSION: Enlarged heart shadow, small rightpleural effusion, and pulmonary venous congestion, again demonstrated. No pneumothorax or consolidation. Osseous structures unremarkable. Signed: [facility] Verified Date/Time: 05/14/2017 14:56:58 Reading Location: [facility] Mammo Reading Room POCT-GLUCOSE [id number] 12:18:00 Test Item Value Reference Range Comments POC-GLUCOSE METER (BEAKER) 313 mg/dL 70-110 TESTED AT [address] (test mfnb=3615) [place] [address] HIV-1 ANTIGEN WITH HIV-1/2 [id number] 12:07:00 Test Item Value Reference Range Comments HIV-1 ANTIGEN WITH HIV 1\T\2 ANTIBODY (2) Nonreactive Nonreactive (BEAKER) (test bxkf=4997) CALCIUM, [id number] 06:37:00 Test Item Value Reference Range Comments CALCIUM IONIZED (BEAKER) (test segk=155) 1.08 mmol/L 1.12-1.27 PH, BLOOD (BEAKER) (test dies=5535) 7.25 BASIC METABOLIC [id number] 06:26:00 Test Item Value Reference Range Comments SODIUM (BEAKER) (test 134 meq/L 136-145 qrde=481) POTASSIUM (BEAKER) (test 5.1 meq/L 3.5-5.1 esyx=075) CHLORIDE (BEAKER) (test 103 meq/L 98-107 hbqw=960) CO2 (BEAKER) (test 25 meq/L 22-29 tzsu=355) BLOOD UREA NITROGEN 45 mg/dL 7-21 (BEAKER) (test okvu=136) CREATININE (BEAKER) (test 2.92 mg/dL 0.57-1.25 bqod=752) GLUCOSE RANDOM (BEAKER) 163 mg/dL 70-105 (test mtsp=414) CALCIUM (BEAKER) (test 8.1 mg/dL 8.4-10.2 cogv=030) EGFR (BEAKER) (test 16 mL/min/1.73 sq m ESTIMATED GFR IS NOT attt=3085) ACCURATE CREATININE CLEARANCE IN PREDICTING GLOMERULAR FILTRATION RATE. ESTIMATED GFR IS NOT APPLICABLE FOR DIALYSIS PATIENTS. B-TYPE NATRIURETIC FACTOR (BNP)2017-05-14 06:26:00 Test Item Value Reference Range Comments B-TYPE NATRIURETIC PEPTIDE (BEAKER) (test 474 pg/mL 0-100 yscf=612) [id number] 06:25:00 Test Item Value Reference Range Comments PHOSPHORUS (BEAKER) (test bcly=603) 5.7 mg/dL 2.3-4.7 [id number] 06:25:00 Test Item Value Reference Range Comments MAGNESIUM (BEAKER) (test hmsc=825) 1.5 mg/dL 1.6-2.6 CBC W/PLT COUNT & AUTO [id number] 06:07:00 Test Item Value Reference Range Comments WHITE BLOOD CELL COUNT (BEAKER) (test racn=511) 8.9 K/ L 3.5-10.5 RED BLOOD CELL COUNT (BEAKER) (test forn=398) 4.32 M/ L 3.93-5.22 HEMOGLOBIN (BEAKER) (test dhga=367) 11.0 GM/DL 11.2-15.7 HEMATOCRIT (BEAKER) (test cmzj=106) 36.6 % 34.1-44.9 MEAN CORPUSCULAR VOLUME (BEAKER) (test fvao=380) 84.7 fL 79.4-94.8 MEAN CORPUSCULAR HEMOGLOBIN (BEAKER) (test 25.5 pg 25.6-32.2 gvke=760) MEAN CORPUSCULAR HEMOGLOBIN CONC (BEAKER) (test 30.1 GM/DL 32.2-35.5 cywr=913) RED CELL DISTRIBUTION WIDTH (BEAKER) (test 14.6 % 11.7-14.4 bjyv=951) PLATELET COUNT (BEAKER) (test xnvb=504) 201 K/CU MM 150-450 MEAN PLATELET VOLUME (BEAKER) (test zzcn=602) 11.1 fL 9.4-12.3 NUCLEATED RED BLOOD CELLS (BEAKER) (test 0 /100 WBC 0-0 xeyc=904) NEUTROPHILS RELATIVE PERCENT (BEAKER) (test 55 % fjoh=622) LYMPHOCYTES RELATIVE PERCENT (BEAKER) (test 36 % ltfr=829) MONOCYTES RELATIVE PERCENT (BEAKER) (test 5 % gtwo=651) EOSINOPHILS RELATIVE PERCENT (BEAKER) (test 3 % nbmt=321) BASOPHILS RELATIVE PERCENT (BEAKER) (test 1 % enbt=384) NEUTROPHILS ABSOLUTE COUNT (BEAKER) (test 4.85 K/ L 1.56-6.13 cnwi=075) LYMPHOCYTES ABSOLUTE COUNT (BEAKER) (test 3.18 K/ L 1.18-3.74 ghdw=566) MONOCYTES ABSOLUTE COUNT (BEAKER) (test 0.47 K/ L 0.24-0.36 cfrp=612) EOSINOPHILS ABSOLUTE COUNT (BEAKER) (test 0.25 K/ L 0.04-0.36 yact=694) BASOPHILS ABSOLUTE COUNT (BEAKER) (test 0.07 K/ L 0.01-0.08 bdvk=878) IMMATURE GRANULOCYTES-RELATIVE PERCENT (BEAKER) 0 % 0-1 (test jyfm=3667) POCT-GLUCOSE [id number] 22:38:00 Test Item Value Reference Range Comments POC-GLUCOSE METER (BEAKER) 262 mg/dL 70-110 TESTED AT [facility] [address] (test nrgr=5924) [facility] [address] PROTEIN, RANDOM [id number] 22:18:00 Test Item Value Reference Range Comments PROTEIN, URINE (BEAKER) (test mngi=6969) 641 mg/dL 0-14 CREATININE, RANDOM [id number] 22:07:00 Test Item Value Reference Range Comments CREATININE URINE (BEAKER) (test ypsu=018) 124.9 mg/dL Reference Range: No NormalsURINALYSIS W/ [id number] 22:03:00 Test Item Value Reference Range Comments COLOR (BEAKER) (test zcge=317) Yellow CLARITY (BEAKER) (test mflg=834) Cloudy SPECIFIC GRAVITY UA (BEAKER) (test nkjd=321) 1.015 1.001-1.035 PH UA (BEAKER) (test ojra=030) 5.5 5.0-8.0 PROTEIN UA (BEAKER) (test nzgt=191) 300 mg/dL Negative GLUCOSE UA (BEAKER) (test mhcb=514) 300 mg/dL Negative KETONES UA (BEAKER) (test iaeh=297) Negative Negative BILIRUBIN UA (BEAKER) (test cnaf=929) Negative Negative BLOOD UA (BEAKER) (test jwpi=728) Trace Negative NITRITE UA (BEAKER) (test ahrb=035) Negative Negative LEUKOCYTE ESTERASE UA (BEAKER) (test wsjk=850) Moderate Negative UROBILINOGEN UA (BEAKER) (test wbrh=969) 0.2 mg/dL 0.2-1.0 RBC UA (BEAKER) (test ztvu=579) 11 /HPF WBC UA (BEAKER) (test xctl=285) 36 /HPF MUCUS (BEAKER) (test exbj=6197) Few SQUAMOUS EPITHELIAL (BEAKER) (test xlbd=307) 12 /HPF HYALINE CASTS (BEAKER) (test ndju=378) 66 /LPF CASTS (BEAKER) (test girt=6000) 112 /LPF YEAST (BEAKER) (test glvx=2376) Moderate SOURCE(BEAKER) (test duds=4352) Urine, Voided [id number] 19:49:00 Test Item Value Reference Range Comments SODIUM (BEAKER) (test hnqg=044) 136 meq/L 136-145 POTASSIUM (BEAKER) (test 5.1 meq/L 3.5-5.1 Specimen slightly hemolyzed hoqk=648) CHLORIDE (BEAKER) (test 104 meq/L 98-107 llqe=642) CO2 (BEAKER) (test zifb=032) 25 meq/L 22-29 Call if K > 5POCT-GLUCOSE [id number] 11:37:00 Test Item Value Reference Range Comments POC-GLUCOSE METER (BEAKER) 293 mg/dL 70-110 TESTED AT [address] (test dtmd=9738) [place] [address] RAD, CHEST, 1 VIEW, NON [id number] 10:22:00Reason for exam:->SOBShould this be performed at the bedside?->YesFINAL REPORT Chest one view Discussion: There is cardiomegaly and interstitial congestion. A small right-sided effusion is noted. No pneumothorax. IMPRESSIONS: Suspected CHF. Signed: Jeannette Nava Verified Date/Time: 05/13/2017 10:22:34 Reading Location: [facility] Radiology Reading Room POCT-GLUCOSE [id number] 08:34:00 Test Item Value Reference Range Comments POC-GLUCOSE METER (BEAKER) 178 mg/dL 70-110 TESTED AT [address] (test kzdu=7463) [place] [address] POCT-GLUCOSE [id number] 06:53:00 Test Item Value Reference Range Comments POC-GLUCOSE METER (BEAKER) 167 mg/dL 70-110 TESTED AT [address] (test rhqk=5078) [place] [address] [id number] 04:48:00 Test Item Value Reference Range Comments BLOOD UREA NITROGEN (BEAKER) (test qthj=970) 36 mg/dL 7-21 [id number] 04:48:00 Test Item Value Reference Range Comments SODIUM (BEAKER) (test xqjr=974) 139 meq/L 136-145 POTASSIUM (BEAKER) (test vkfv=363) 5.2 meq/L 3.5-5.1 CHLORIDE (BEAKER) (test mdxk=956) 109 meq/L 98-107 CO2 (BEAKER) (test jifi=723) 23 meq/L 22-29 [id number] 04:48:00 Test Item Value Reference Range Comments CREATININE (BEAKER) (test 1.73 mg/dL 0.57-1.25 qfja=107) EGFR (BEAKER) (test 30 mL/min/1.73 sq m ESTIMATED GFR IS NOT kdxu=8489) ACCURATE CREATININE CLEARANCE IN PREDICTING GLOMERULAR FILTRATION RATE. ESTIMATED GFR IS NOT APPLICABLE FOR DIALYSIS PATIENTS. CBC (HEMOGRAM ONLY)2017-05-13 04:33:00 Test Item Value Reference Range Comments WHITE BLOOD CELL COUNT (BEAKER) (test xttb=669) 10.2 K/ L 3.5-10.5 RED BLOOD CELL COUNT (BEAKER) (test kvlc=836) 4.54 M/ L 3.93-5.22 HEMOGLOBIN (BEAKER) (test vikc=517) 11.4 GM/DL 11.2-15.7 HEMATOCRIT (BEAKER) (test aefv=124) 37.6 % 34.1-44.9 MEAN CORPUSCULAR VOLUME (BEAKER) (test jnkm=794) 82.8 fL 79.4-94.8 MEAN CORPUSCULAR HEMOGLOBIN (BEAKER) (test 25.1 pg 25.6-32.2 fqon=546) MEAN CORPUSCULAR HEMOGLOBIN CONC (BEAKER) (test 30.3 GM/DL 32.2-35.5 tzaw=252) RED CELL DISTRIBUTION WIDTH (BEAKER) (test 14.7 % 11.7-14.4 jrwk=821) PLATELET COUNT (BEAKER) (test lwnp=392) 194 K/CU MM 150-450 MEAN PLATELET VOLUME (BEAKER) (test tyvo=938) 10.9 fL 9.4-12.3 NUCLEATED RED BLOOD CELLS (BEAKER) (test 0 /100 WBC 0-0 hcpd=866) [id number] 23:29:00 Test Item Value Reference Range Comments ACTIVATED CLOTTING TIME 136 sec TESTED AT [address] (BEAKER) (test mddu=023) [facility] [address] [id number] 20:13:00 Test Item Value Reference Range Comments ACTIVATED CLOTTING TIME 175 sec TESTED AT [address] (BEAKER) (test kzrb=880) [place] [address] [id number] 18:36:00 Test Item Value Reference Range Comments ACTIVATED CLOTTING TIME 202 sec TESTED AT [place] [address] [facility] (BEAKER) (test cpfv=165) [place] [address] [id number] 18:03:00 Test Item Value Reference Range Comments ACTIVATED CLOTTING TIME 208 sec TESTED AT [address] (BEAKER) (test mgxm=860) [place] [address] BASIC METABOLIC [id number] 11:57:00 Test Item Value Reference Range Comments SODIUM (BEAKER) (test 139 meq/L 136-145 ibwx=365) POTASSIUM (BEAKER) (test 4.9 meq/L 3.5-5.1 dbgu=960) CHLORIDE (BEAKER) (test 107 meq/L 98-107 fvrk=191) CO2 (BEAKER) (test 27 meq/L 22-29 csjp=167) BLOOD UREA NITROGEN 36 mg/dL 7-21 (BEAKER) (test nkmp=031) CREATININE (BEAKER) (test 1.60 mg/dL 0.57-1.25 qcku=059) GLUCOSE RANDOM (BEAKER) 187 mg/dL 70-105 (test yswa=889) CALCIUM (BEAKER) (test 8.6 mg/dL 8.4-10.2 bwwk=686) EGFR (BEAKER) (test 33 mL/min/1.73 sq m ESTIMATED GFR IS NOT fqbf=2728) ACCURATE CREATININE CLEARANCE IN PREDICTING GLOMERULAR FILTRATION RATE. ESTIMATED GFR IS NOT APPLICABLE FOR DIALYSIS PATIENTS. PROTHROMBIN [id number] 11:15:00 Test Item Value Reference Range Comments PROTIME (BEAKER) (test lgnk=951) 14.8 seconds 11.7-14.7 INR (BEAKER) (test ixso=503) 1.2 <=5.9 RECOMMENDED COUMADIN/WARFARIN INR THERAPY RANGESSTANDARD DOSE: 2.0 - 3.0 Includes: PROPHYLAXIS forvenous thrombosis, systemic embolization; TREATMENT for venous thrombosis and/or pulmonary embolus.HIGH RISK: Target INR is 2.5-3.5 for patients with mechanical heart valves.Within 24 hours, if on CoumadinCBC W/ PLT COUNT & AUTO [id number] 11:01:00 Test Item Value Reference Range Comments WHITE BLOOD CELL COUNT (BEAKER) (test dret=491) 9.1 K/ L 3.5-10.5 RED BLOOD CELL COUNT (BEAKER) (test wxqb=713) 4.62 M/ L 3.93-5.22 HEMOGLOBIN (BEAKER) (test azga=827) 11.7 GM/DL 11.2-15.7 HEMATOCRIT (BEAKER) (test ybuv=451) 38.0 % 34.1-44.9 MEAN CORPUSCULAR VOLUME (BEAKER) (test xxlx=406) 82.3 fL 79.4-94.8 MEAN CORPUSCULAR HEMOGLOBIN (BEAKER) (test 25.3 pg 25.6-32.2 ohtw=735) MEAN CORPUSCULAR HEMOGLOBIN CONC (BEAKER) (test 30.8 GM/DL 32.2-35.5 hlyn=458) RED CELL DISTRIBUTION WIDTH (BEAKER) (test 14.5 % 11.7-14.4 bepc=526) PLATELET COUNT (BEAKER) (test tagv=541) 205 K/CU MM 150-450 MEAN PLATELET VOLUME (BEAKER) (test vdug=554) 10.6 fL 9.4-12.3 NUCLEATED RED BLOOD CELLS (BEAKER) (test 0 /100 WBC 0-0 zdqi=087) NEUTROPHILS RELATIVE PERCENT (BEAKER) (test 59 % zupp=125) LYMPHOCYTES RELATIVE PERCENT (BEAKER) (test 32 % eqkh=945) MONOCYTES RELATIVE PERCENT (BEAKER) (test 5 % khzp=996) EOSINOPHILS RELATIVE PERCENT (BEAKER) (test 3 % ldre=732) BASOPHILS RELATIVE PERCENT (BEAKER) (test 1 % cxwa=451) NEUTROPHILS ABSOLUTE COUNT (BEAKER) (test 5.36 K/ L 1.56-6.13 yxnk=116) LYMPHOCYTES ABSOLUTE COUNT (BEAKER) (test 2.86 K/ L 1.18-3.74 oiev=558) MONOCYTES ABSOLUTE COUNT (BEAKER) (test 0.48 K/ L 0.24-0.36 nymi=553) EOSINOPHILS ABSOLUTE COUNT (BEAKER) (test 0.27 K/ L 0.04-0.36 zblm=516) BASOPHILS ABSOLUTE COUNT (BEAKER) (test 0.08 K/ L 0.01-0.08 cfik=356) IMMATURE GRANULOCYTES-RELATIVE PERCENT (BEAKER) 0 % 0-1 (test kpwu=7328) POCT-GLUCOSE [id number] 12:35:00 Test Item Value Reference Range Comments POC-GLUCOSE METER (BEAKER) 249 mg/dL 70-110 TESTED AT [address] (test etku=6744) [facility] [address] POCT-GLUCOSE [id number] 09:10:00 Test Item Value Reference Range Comments POC-GLUCOSE METER (BEAKER) 155 mg/dL 70-110 TESTED AT [address] (test upzt=3658) [facility] [address] BASIC METABOLIC [id number] 05:39:00 Test Item Value Reference Range Comments SODIUM (BEAKER) (test 138 meq/L 136-145 joyz=366) POTASSIUM (BEAKER) (test 4.7 meq/L 3.5-5.1 uoby=724) CHLORIDE (BEAKER) (test 107 meq/L 98-107 qusd=256) CO2 (BEAKER) (test 25 meq/L 22-29 hsgr=345) BLOOD UREA NITROGEN 36 mg/dL 7-21 (BEAKER) (test jrkh=072) CREATININE (BEAKER) (test 1.75 mg/dL 0.57-1.25 nujr=767) GLUCOSE RANDOM (BEAKER) 126 mg/dL 70-105 (test uzzq=571) CALCIUM (BEAKER) (test 8.2 mg/dL 8.4-10.2 arix=434) EGFR (BEAKER) (test 29 mL/min/1.73 sq m ESTIMATED GFR IS NOT fshh=3729) ACCURATE CREATININE CLEARANCE IN PREDICTING GLOMERULAR FILTRATION RATE. ESTIMATED GFR IS NOT APPLICABLE FOR DIALYSIS PATIENTS. [id number] 05:27:00 Test Item Value Reference Range Comments PHOSPHORUS (BEAKER) (test dspa=907) 5.0 mg/dL 2.3-4.7 [id number] 05:27:00 Test Item Value Reference Range Comments MAGNESIUM (BEAKER) (test nqko=075) 1.6 mg/dL 1.6-2.6 POCT-GLUCOSE [id number] 05:25:00 Test Item Value Reference Range Comments POC-GLUCOSE METER (BEAKER) 144 mg/dL 70-110 TESTED AT [address] (test vmjb=7453) [place] [address] PROTHROMBIN [id number] 04:58:00 Test Item Value Reference Range Comments PROTIME (BEAKER) (test fdhv=729) 14.2 seconds 11.7-14.7 INR (BEAKER) (test cmez=477) 1.1 <=5.9 RECOMMENDED COUMADIN/WARFARIN INR THERAPY RANGESSTANDARD DOSE: 2.0 - 3.0 Includes: PROPHYLAXIS forvenous thrombosis, systemic embolization; TREATMENT for venous thrombosis and/or pulmonary embolus.HIGH RISK: Target INR is 2.5-3.5 for patients with mechanical heart valves.POCT-GLUCOSE [id number] 23:55:00 Test Item Value Reference Range Comments POC-GLUCOSE METER (BEAKER) 86 mg/dL 70-110 TESTED AT [address] (test gnwy=4067) [place] [address] B-TYPE NATRIURETIC FACTOR (BNP)2017-04-22 18:13:00 Test Item Value Reference Range Comments B-TYPE NATRIURETIC PEPTIDE (BEAKER) (test 1203 pg/mL 0-100 yozt=037) POCT-GLUCOSE [id number] 17:36:00 Test Item Value Reference Range Comments POC-GLUCOSE METER (BEAKER) 259 mg/dL 70-110 TESTED AT [address] (test dpey=0918) [place] [address] HEMOGLOBIN [id number] 14:24:00 Test Item Value Reference Range Comments HEMOGLOBIN A1C (BEAKER) (test ojjd=016) 10.5 % 4.3-6.1 POCT-GLUCOSE [id number] 12:34:00 Test Item Value Reference Range Comments POC-GLUCOSE METER (BEAKER) 207 mg/dL 70-110 TESTED AT [address] (test wzul=6299) [place] [address] [id number] 07:53:00 Test Item Value Reference Range Comments PHOSPHORUS (BEAKER) (test augp=727) 3.9 mg/dL 2.3-4.7 [id number] 07:53:00 Test Item Value Reference Range Comments MAGNESIUM (BEAKER) (test cahd=389) 1.6 mg/dL 1.6-2.6 BASIC METABOLIC [id number] 07:53:00 Test Item Value Reference Range Comments SODIUM (BEAKER) (test 139 meq/L 136-145 immj=195) POTASSIUM (BEAKER) (test 4.5 meq/L 3.5-5.1 xspa=107) CHLORIDE (BEAKER) (test 108 meq/L 98-107 htwk=834) CO2 (BEAKER) (test 25 meq/L 22-29 tvyu=690) BLOOD UREA NITROGEN 29 mg/dL 7-21 (BEAKER) (test sjlo=411) CREATININE (BEAKER) (test 1.54 mg/dL 0.57-1.25 adti=665) GLUCOSE RANDOM (BEAKER) 211 mg/dL 70-105 (test hutz=620) CALCIUM (BEAKER) (test 8.5 mg/dL 8.4-10.2 pbnt=628) EGFR (BEAKER) (test 34 mL/min/1.73 sq m ESTIMATED GFR IS NOT rhem=1598) ACCURATE CREATININE CLEARANCE IN PREDICTING GLOMERULAR FILTRATION RATE. ESTIMATED GFR IS NOT APPLICABLE FOR DIALYSIS PATIENTS. TROPONIN [id number] 07:29:00 Test Item Value Reference Range Comments TROPONIN I (BEAKER) (test zhmr=096) 0.05 ng/mL 0.00-0.03 Troponin I (TnI) levels [...] acidosis, acute neurological disease, and persistent tachyarrhythmia.PROTHROMBIN [id number] 07:01:00 Test Item Value Reference Range Comments PROTIME (BEAKER) (test xpyj=538) 13.8 seconds 11.7-14.7 INR (BEAKER) (test nbeq=096) 1.1 <=5.9 RECOMMENDED COUMADIN/WARFARIN INR THERAPY RANGESSTANDARD DOSE: 2.0 - 3.0 Includes: PROPHYLAXIS forvenous thrombosis, systemic embolization; TREATMENT for venous thrombosis and/or pulmonary embolus.HIGH RISK: Target INR is 2.5-3.5 for patients with mechanical heart valves.POCT-GLUCOSE [id number] 06:28:00 Test Item Value Reference Range Comments POC-GLUCOSE METER (BEAKER) 198 mg/dL 70-110 TESTED AT [address] (test amvh=9188) [place] [id number] CREATINE KINASE (CK), TOTAL AND [id number] 00:49:00 Test Item Value Reference Range Comments CREATINE KINASE TOTAL (BEAKER) (test ibav=392) 69 U/L 29-200 CREATINE KINASE-MB (BEAKER) (test vscu=710) 4.3 ng/mL 0.0-6.6 CREATINE KINASE-MB INDEX (BEAKER) (test psbd=532) 6.2 % CK-MB Reference Range:<6.7 Normal6.7-10.0 Borderline>10.0 AbnormalTROPONIN [id number] 00:49:00 Test Item Value Reference Range Comments TROPONIN I (BEAKER) (test wkjj=380) 0.05 ng/mL 0.00-0.03 Troponin I (TnI) levels [...] acidosis, acute neurological disease, and persistent tachyarrhythmia.POCT-GLUCOSE [id number] 20:44:00 Test Item Value Reference Range Comments POC-GLUCOSE METER (BEAKER) 269 mg/dL 70-110 TESTED AT [address] (test oyzr=9331) [place] [id number]
[2018-09-12 16:06] LABS: Absolute Lymphocytes (CBC) 1.7 K/uL (0.7-4.9); Basophils % 1.3 % (0-1.3); Eosinophils % 1.9 % (0-4.4); Hematocrit 37.8 % (36.0-45.0); Lymphocytes % 30.3 % (15.3-44.8); MPV 8.6 fL (7.6-11.3); Monocytes % 4.9 % (3.3-12.3)
[2018-09-12 16:11] LABS: Protime INR 1.17
[2018-09-12 16:25] LABS: Albumin 2.7 g/dL (3.4-5.0); Bilirubin Direct 0.2 mg/dL (0-0.2); Bilirubin Total 0.4 mg/dL (0.2-1.0); Magnesium 2.1 mg/dL (1.8-2.4); Potassium 4.8 mmol/L (3.5-5.1); Protein, Total 6.6 g/dL (6.4-8.2); Troponin (Emerg Dept Use Only) 0.05 ng/mL (0.0-0.045)
[2018-09-12] MEDS ORDERED: IPRATROPIUM BROM 0.5MG/2.5ML ONE (16:33)
[2018-09-12] MEDS ORDERED: ALBUTEROL 2.5 MG/3 ML NEB SOL ONE (16:33)
[2018-09-12 16:35] LABS: Urine Blood TRACE (NEG); Urine Glucose TRACE (NEG); Urine Protein 3+ (NEG); Urine Specific Gravity >1.030 (1.005-1.030)
--- NOTE | 2018-09-12 16:39 | RAD REPORT ---
EXAM DESCRIPTION: RAD - Chest Single View - 09/12/2018 4:24 pm CLINICAL HISTORY: CHEST PAIN Chest pain. COMPARISON: Chest Pa And Lat (2 Views) dated 08/11/2018; Chest Single View dated 08/10/2018; Chest Pa And Lat (2 Views) dated 05/27/2018; Chest Pa And Lat (2 Views) dated 05/26/2018 FINDINGS: Portable technique limits examination quality. Mild interstitial pulmonary edema suspected. Minimal left and small right pleural effusion noted with fluid in the fissure. Heart is moderately enlarged with changes of a prior CABG. No displaced fractu res. IMPRESSION: Mild CHF.
[2018-09-12] MEDS ORDERED: ASPIRIN 81 MG CHEWABLE TABLET ONE (17:51)
[2018-09-12] MEDS ORDERED: FUROSEMIDE 40 MG/4 ML VIAL ONE (17:52)
[2018-09-12] MEDS ORDERED: NITROGLYCERIN 0.4 MG/TAB SL ONE (17:52)
[2018-09-12] MEDS ORDERED: HYDRALAZINE HCL 20 MG/ML VIAL ONE ×2 (19:02→20:44)
[2018-09-12] MEDS ORDERED: FENTANYL CITR 100 MCG/2 ML ONE (19:02)
[2018-09-12] MEDS ORDERED: hydroCHLOROthiazide 25 MG TAB ONE (19:39)
--- NOTE | 2018-09-12 20:23 | EDPHYS ---
Physician Documentation [facility] Name: Christy Priest Age: 63 yrs Sex: Female : 1955 Arrival Date: 09/12/2018 Time: 15:09 Bed 5 Private MD: Franki Mark ED Physician Jose De Jesus Mercado HPI: 09/12 16:00 This 63 yrs old Female presents to ER via Wheelchair with complaints of Chest cp Pain, Leg Swelling. 16:00 The patient has shortness of breath at rest. Onset: The symptoms/episode began/occurred cp 2 day(s) ago. 16:00 Duration: The symptoms are continuous, and are steadily getting worse. cp 16:00 Associated signs and symptoms: Pertinent positives: chest pain, Pertinent negatives: cp productive cough, diaphoresis, fever, hemoptysis. Severity of symptoms: in the emergency department the symptoms are unchanged. Patient reports running out of Furosemide 2 days ago and not taking blood pressure medication today. Historical: - Allergies: 15:17 Augmentin; la1 15:17 basil; la1 15:17 Morphine; la1 15:17 Nitroglycerin; la1 15:17 Tramadol HCl; la1 15:17 Trazodone; la1 15:17 Vancomycin; la1 - Home Meds: 18:32 gabapentin Oral [Active]; Hydralazine Oral [Active]; insulin [Active]; Lasix Oral ph [Active]; Plavix Oral [Active]; - PMHx: 15:17 CHF; COPD; Diabetes - IDDM; ESRD; High Cholesterol; Hypertension; triple bypass; la1 uterine cancer; - Immunization history:: Adult Immunizations up to date. - Social history:: Smoking status: Patient uses tobacco products, denies chronic smoking, but will smoke occasionally. - Ebola Screening: : No symptoms or risks identified at this time. ROS: 16:10 Constitutional: Negative for body aches, chills, fever, poor PO intake. cp 16:10 Eyes: Negative for injury, pain, redness, and discharge. cp 16:10 ENT: Negative for drainage from ear(s), ear pain, sore throat, difficulty swallowing, difficulty handling secretions. 16:10 Cardiovascular: Positive for chest pain, edema, Negative for palpitations. 16:10 Respiratory: Positive for shortness of breath, Negative for wheezing. 16:10 Abdomen/GI: Positive for abdominal pain, abdominal distension, Negative for nausea, vomiting, and diarrhea, constipation, black/tarry stool, rectal bleeding. 16:10 : Negative for urinary symptoms. 16:10 Skin: Negative for rash. 16:10 Neuro: Negative for altered mental status, headache, syncope, weakness. 16:10 All other systems are negative. Exam: 16:15 Constitutional: The patient appears in no acute distress, alert, awake, cp non-diaphoretic, non-toxic, well developed, well nourished. 16:15 Head/Face: Normocephalic, atraumatic. cp 16:15 Eyes: Periorbital structures: appear normal, Conjunctiva: normal, no exudate, no injection, Sclera: no appreciated abnormality, Lids and lashes: appear normal, bilaterally. 16:15 ENT: External ear(s): are unremarkable, Nose: is normal, Mouth: is normal, Posterior pharynx: is normal, airway is patent. 16:15 Neck: ROM/movement: is normal, is supple, without pain, no range of motions limitations, no nuchal rigidity. 16:15 Chest/axilla: Inspection: normal, Palpation: is normal, no crepitus, no tenderness. 16:15 Cardiovascular: Rate: normal, Rhythm: regular, Edema: ankle edema, that is moderate, JVD: is not appreciated. 16:15 Respiratory: the patient does not display signs of respiratory distress, Respirations: labored breathing, that is mild, accessory muscle usage, is absent, intercostal retractions, are absent, Breath sounds: decreased breath sounds, that are moderate, throughout, stridor, is not appreciated. 16:15 Abdomen/GI: Inspection: distension, that is moderate, Bowel sounds: active, all quadrants, Palpation: soft, in all quadrants, mild abdominal tenderness, in the right lower quadrant and left lower quadrant, rebound tenderness, is not appreciated, voluntary guarding, is elicited in the right lower quadrant and left lower quadrant. 16:15 Back: pain, is absent, ROM is normal. 16:15 Skin: cellulitis, is not appreciated, no rash present. 16:15 Neuro: Orientation: to person, place \T\ time. Mentation: is normal. 19:40 ECG was reviewed by the Attending Physician. cp Vital Signs: 15:18 BP 174 / 90; Pulse 86; Resp 20; Pulse Ox 93% on R/A; Weight 86.18 kg; la1 16:00 BP 199 / 86; Pulse 80; Resp 20; Pulse Ox 95% on R/A; ph 17:00 BP 209 / 109; Pulse 83; Resp 22; Pulse Ox 94% on R/A; ph 18:22 BP 200 / 89; Pulse 84; Resp 18; Pulse Ox 96% on R/A; ph 19:53 BP 200 / 97; Pulse 79; Resp 14 S; Pulse Ox 95% on R/A; Pain 0/10; jd3 21:03 BP 195 / 91; Pulse 79; Resp 14 S; Pulse Ox 98% on R/A; Pain 3/10; jd3 22:15 BP 188 / 85; Pulse 80; Resp 15 S; Pulse Ox 97% on R/A; Pain 5/10; jd3 19:53 provider notified of of abnormal vital signs. jd3 MDM: 15:42 Patient medically screened. cp 18:00 Differential diagnosis: CHF exacerbation, Chronic Obstructive Pulmonary Disease cp Myocardial Infarction pneumonia, pulmonary edema, Unstable Angina. 20:15 Data reviewed: vital signs, nurses notes, lab test result(s), EKG, radiologic studies, cp plain films. 20:15 Test interpretation: by ED physician or midlevel provider: ECG, plain radiologic cp studies. Counseling: I had a detailed discussion with the patient and/or guardian regarding: the historical points, exam findings, and any diagnostic results supporting the discharge/admit diagnosis, the presence of at least one elevated blood pressure reading (>120/80) during this emergency department visit, lab results, radiology results. Response to treatment: the patient's symptoms have mildly improved after treatment, and as a result, I will admit patient. Physician consultation: Maria De Jesus Merrill MD was contacted at 20:00, regarding admission, and will see patient in ED. 09/12 15:53 Order name: Basic Metabolic Panel ph 09/12 15:53 Order name: CBC with Diff ph 09/12 15:53 Order name: LFT's ph 09/12 15:53 Order name: Magnesium; Complete Time: 17:01 ph 09/12 15:53 Order name: NT PRO-BNP; Complete Time: 17:01 ph 09/12 15:53 Order name: PT-INR; Complete Time: 17:01 ph 0615 15:53 Order name: Troponin (emerg Dept Use Only); Complete Time: 17:01 ph 15 15:53 Order name: XRAY Chest (1 view); Complete Time: 17:01 ph 15 15:56 Order name: Basic Metabolic Panel; Complete Time: 17:01 EDMS 09/12 15:56 Order name: CBC with Automated Diff; Complete Time: 17:01 EDMS 09/12 15:56 Order name: Liver (Hepatic) Function; Complete Time: 17:01 EDMS 09/12 16:11 Order name: Urine Dipstick--Ancillary (enter results); Complete Time: 17:01 ms 09/12 19:04 Order name: Troponin I; Complete Time: 20:16 cp / 15:18 Order name: EKG; Complete Time: 15:19 la1 09/12 15:18 Order name: EKG - Nurse/Tech; Complete Time: 18:34 la1 09/12 15:53 Order name: Cardiac monitoring; Complete Time: 16:15 ph 09/12 15:53 Order name: EKG - Nurse/Tech; Complete Time: 16:15 ph 09/12 15:53 Order name: IV Saline Lock; Complete Time: 16:15 ph 09/12 15:53 Order name: Labs collected and sent; Complete Time: 16:15 ph 09/12 15:53 Order name: O2 Per Protocol; Complete Time: 16:15 ph 15 19:04 Order name: EKG; Complete Time: 19:06 cp 09/12 15:53 Order name: O2 Sat Monitoring; Complete Time: 16:15 ph 09/12 19:04 Order name: EKG - Nurse/Tech; Complete Time: 19:37 cp EC:40 Rate is 79 beats/min. Rhythm is regular. RI interval is normal. QRS interval is cp prolonged at 102 msec. QT interval is normal. T waves are Inverted in lead aVL. Interpreted by me. Reviewed by me. Administered Medications: 16:29 Drug: Albuterol - atroVENT (3:1) (2.5 mg - 0.5 mg) 3 ml Route: Nebulizer; ph 19:00 Follow up: Response: No adverse reaction ph 17:46 Drug: Lasix 40 mg Route: IVP; Site: right antecubital; ph 19:02 Follow up: Response: No adverse reaction ph 17:47 Drug: Nitroglycerin 0.4 mg Route: Sublingual; ph 19:00 Follow up: Response: No adverse reaction ph 17:47 Drug: Aspirin Chewable Tablet 324 mg Route: PO; ph 19:00 Follow up: Response: No adverse reaction ph 18:58 Drug: hydrALAZINE 10 mg Route: IV; Rate: calculated rate; Site: right antecubital; ph 19:50 Follow up: Response: No adverse reaction; IV Status: Completed infusion jd3 18:59 Drug: fentaNYL (PF) 25 mcg Route: IVP; Site: right antecubital; ph 19:02 Follow up: Response: No adverse reaction ph 19:30 Drug: HydrALAZINE 25 mg Route: PO; jd3 20:30 Follow up: Response: No adverse reaction jd3 20:33 Drug: hydrALAZINE 10 mg Route: IV; Rate: calculated rate; Site: right antecubital; jd3 21:30 Follow up: Response: No adverse reaction; IV Status: Completed infusion jd3 22:02 Drug: Nicoderm CQ 21 mg/24 hr 1 patches Route: Transdermal; Site: affected area; jd3 22:56 Follow up: Response: No adverse reaction jd3 Disposition: 09/13 12:53 Co-signature as Attending Physician, Jose De Jesus Mercado MD. Disposition: 09/12/18 20:23 Hospitalization ordered by Maria De Jesus Merrill for Observation. Preliminary diagnosis are Acute on chronic combined systolic (congestive) and diastolic (congestive) heart failure, Hypertensive heart and chronic kidney disease. - Bed requested for Telemetry/MedSurg (Inpatient). - Status is Observation. jd3 - Condition is Fair. - Problem is an acute exacerbation. - Symptoms have improved. UTI on Admission? No Signatures: Dispatcher [employer] EDMS Mk Alonso RN RN Patricia Baird RN RN ph Page, Corey, PA PA cp Garcia, Cindy, RN RN Jose De Jesus Mercado MD MD Kemal Marcos RN RN jd3 Corrections: (The following items were deleted from the chart) 09/12 20:48 20:23 Hospitalization Ordered by Maria De Jesus Merrill MD for Observation. Preliminary cg diagnosis is Acute on chronic combined systolic (congestive) and diastolic (congestive) heart failure; Hypertensive heart and chronic kidney disease. Bed requested for Telemetry/MedSurg (Inpatient). Status is Observation. Condition is Fair. Problem is an acute exacerbation. Symptoms have improved. UTI on Admission? No. cp 22:59 20:48 09/12/2018 20:23 Hospitalization Ordered by Maria De Jesus Merrill MD for Observation. jd3 Preliminary diagnosis is Acute on chronic combined systolic (congestive) and diastolic (congestive) heart failure; Hypertensive heart and chronic kidney disease. Bed requested for Telemetry/MedSurg (Inpatient). Status is Observation. Condition is Fair. Problem is an acute exacerbation. Symptoms have improved. UTI on Admission? No. cg
--- NOTE | 2018-09-12 20:23 | ER ---
Nurse's Notes [facility] Name: Christy Priest Age: 63 yrs Sex: Female : 1955 Arrival Date: 09/12/2018 Time: 15:09 Bed 5 Private MD: Franki Mark Diagnosis: Acute on chronic combined systolic (congestive) and diastolic (congestive) heart failure;Hypertensive heart and chronic kidney disease Presentation: 09/12 15:16 Presenting complaint: Patient states: increased swelling in LE, breasts, abd. Chest la1 pain since 0. Transition of care: patient was not received from another setting of care. Onset of symptoms was September 12, 2018. Risk Assessment: Do you want to hurt yourself or someone else? Patient reports no desire to harm self or others. Initial Sepsis Screen: Does the patient meet any 2 criteria? Yes Does the patient have a suspected source of infection? No. Patient's initial sepsis screen is negative. Care prior to arrival: None. 15:16 Method Of Arrival: Wheelchair la1 15:16 Acuity: DENNY 2 la1 Historical: - Allergies: 15:17 Augmentin; la1 15:17 basil; la1 15:17 Morphine; la1 15:17 Nitroglycerin; la1 15:17 Tramadol HCl; la1 15:17 Trazodone; la1 15:17 Vancomycin; la1 - Home Meds: 18:32 gabapentin Oral [Active]; Hydralazine Oral [Active]; insulin [Active]; Lasix Oral ph [Active]; Plavix Oral [Active]; - PMHx: 15:17 CHF; COPD; Diabetes - IDDM; ESRD; High Cholesterol; Hypertension; triple bypass; la1 uterine cancer; - Immunization history:: Adult Immunizations up to date. - Social history:: Smoking status: Patient uses tobacco products, denies chronic smoking, but will smoke occasionally. - Ebola Screening: : No symptoms or risks identified at this time. Screenin:30 Abuse screen: Denies threats or abuse. Denies injuries from another. Nutritional ph screening: No deficits noted. Tuberculosis screening: No symptoms or risk factors identified. Fall Risk None identified. Assessment: 15:45 General: Appears in no apparent distress. uncomfortable, Behavior is calm, cooperative, ph appropriate for age, Denies fever, feeling ill. Pain: Complains of pain in anterior aspect of right upper chest and right breast. Pain: Pain does not radiate. Pain began gradually. Neuro: Level of Consciousness is awake, alert, obeys commands, Oriented to person, place, time, situation. Cardiovascular: Reports chest pain, shortness of breath, Denies nausea, vomiting, Capillary refill < 3 seconds in bilateral fingers Patient's skin is warm and dry. Edema is 2+ to waist, left midcalf, left toes, right midcalf, right ankle, right foot and right toes Chest pain quality is pressure, is located in right anterior chest wall. Respiratory: Airway. Respiratory: Reports shortness of breath at rest Airway is patent Respiratory effort is even, unlabored, Respiratory pattern is regular, symmetrical, Breath sounds with crackles bilaterally. GI: Abdomen is distended, Patient currently denies nausea, vomiting. EENT: Lid(s) swelling noted below adrian eyes. Derm: Skin is intact, Skin is pink, warm \\T\\ dry. Musculoskeletal: Circulation, motion, and sensation intact. Range of motion: intact in all extremities. 17:00 Reassessment: Patient appears in no apparent distress at this time. Patient and/or ph family updated on plan of care and expected duration. Pain level reassessed. Patient is alert, oriented x 3, equal unlabored respirations, skin warm/dry/pink. 18:00 Reassessment: Patient appears in no apparent distress at this time. Patient and/or ph family updated on plan of care and expected duration. Pain level reassessed. Patient is alert, oriented x 3, equal unlabored respirations, skin warm/dry/pink. Pt c/o pain and requesting medication, states, " I am hurting all over." ERP notified, see MAR. 19:30 General: Appears in no apparent distress. comfortable, Behavior is calm, cooperative, jd3 appropriate for age. Pain: Denies pain. Neuro: Level of Consciousness is awake, alert, obeys commands, Oriented to person, place, time, situation. Cardiovascular: Denies chest pain, nausea, Capillary refill < 3 seconds Patient's skin is warm and dry. Edema is 2+ to waist, left foot and right foot. Respiratory: Airway is patent Respiratory effort is even, unlabored, Respiratory pattern is regular, symmetrical, Denies shortness of breath. GI: Abdomen is round distended, Patient currently denies diarrhea, nausea, vomiting. : No signs and/or symptoms were reported regarding the genitourinary system. Derm: Skin is intact, Skin is dry, Skin is normal, Skin temperature is warm. Musculoskeletal: Circulation, motion, and sensation intact. Range of motion: intact in all extremities. 21:03 Reassessment: Patient appears in no apparent distress at this time. Patient and/or jd3 family updated on plan of care and expected duration. Pain level reassessed. Patient is alert, oriented x 3, equal unlabored respirations, skin warm/dry/pink. 22:15 Reassessment: Patient appears in no apparent distress at this time. Patient and/or jd3 family updated on plan of care and expected duration. Pain level reassessed. Patient is alert, oriented x 3, equal unlabored respirations, skin warm/dry/pink. Vital Signs: 15:18 BP 174 / 90; Pulse 86; Resp 20; Pulse Ox 93% on R/A; Weight 86.18 kg; la1 16:00 BP 199 / 86; Pulse 80; Resp 20; Pulse Ox 95% on R/A; ph 17:00 BP 209 / 109; Pulse 83; Resp 22; Pulse Ox 94% on R/A; ph 18:22 BP 200 / 89; Pulse 84; Resp 18; Pulse Ox 96% on R/A; ph 19:53 BP 200 / 97; Pulse 79; Resp 14 S; Pulse Ox 95% on R/A; Pain 0/10; jd3 21:03 BP 195 / 91; Pulse 79; Resp 14 S; Pulse Ox 98% on R/A; Pain 3/10; jd3 22:15 BP 188 / 85; Pulse 80; Resp 15 S; Pulse Ox 97% on R/A; Pain 5/10; jd3 19:53 provider notified of of abnormal vital signs. [facility] ED Course: 15:09 Patient arrived in ED. dl4 15:09 Franki Mark MD is Private Physician. dl4 15:17 Triage completed. la1 15:18 Arm band placed on left wrist. la1 15:37 Patricia Hood RN is Primary Nurse. ph 15:39 [facility] C[facility]C [facility] snw 15:40 Inserted saline lock: 20 gauge in right antecubital area, using aseptic technique. ph Blood collected. 15:42 Alessio Zarate PA is PHCP. cp 15:42 Jose De Jesus Mercado MD is Attending Physician. cp 16:24 XRAY Chest (1 view) In Process Unspecified. EDMS 18:27 Patient has correct armband on for positive identification. Bed in low position. Call ph light in reach. Side rails up X 1. bus monitor on. Pulse ox on. NIBP on. Door closed. Noise minimized. Warm blanket given. Pillow given. 18:30 Patient maintains SpO2 saturation greater than 95% on room air. ph 20:20 Maria De Jesus Merrill MD is Hospitalizing Provider. cp 22:54 No provider procedures requiring assistance completed. IV is patent, is intact, with jd3 fluids infusing freely, with good blood return, dressing clean and dry, intact.. Patient admitted, IV remains in place. Administered Medications: 16:29 Drug: Albuterol - atroVENT (3:1) (2.5 mg - 0.5 mg) 3 ml Route: Nebulizer; ph 19:00 Follow up: Response: No adverse reaction ph 17:46 Drug: Lasix 40 mg Route: IVP; Site: right antecubital; ph 19:02 Follow up: Response: No adverse reaction ph 17:47 Drug: Nitroglycerin 0.4 mg Route: Sublingual; ph 19:00 Follow up: Response: No adverse reaction ph 17:47 Drug: Aspirin Chewable Tablet 324 mg Route: PO; ph 19:00 Follow up: Response: No adverse reaction ph 18:58 Drug: hydrALAZINE 10 mg Route: IV; Rate: calculated rate; Site: right antecubital; ph 19:50 Follow up: Response: No adverse reaction; IV Status: Completed infusion jd3 18:59 Drug: fentaNYL (PF) 25 mcg Route: IVP; Site: right antecubital; ph 19:02 Follow up: Response: No adverse reaction ph 19:30 Drug: HydrALAZINE 25 mg Route: PO; jd3 20:30 Follow up: Response: No adverse reaction jd3 20:33 Drug: hydrALAZINE 10 mg Route: IV; Rate: calculated rate; Site: right antecubital; jd3 21:30 Follow up: Response: No adverse reaction; IV Status: Completed infusion jd3 22:02 Drug: Nicoderm CQ 21 mg/24 hr 1 patches Route: Transdermal; Site: affected area; jd3 22:56 Follow up: Response: No adverse reaction jemery Outcome: 20:23 Decision to Hospitalize by Provider. cp 22:55 Admitted to Tele accompanied by tech, via wheelchair, room 218, with chart, Report jd3 called to John VANEGAS 22:55 Condition: stable 22:55 Instructed on the need for admit, Demonstrated understanding of instructions. 22:59 Patient left the ED. mariana Signatures: Dispatcher [employer] EDMS Kami Cota, FOAM RUBBER CURER-C FOAM RUBBER CURER-Csnw Mk Alonso RN RN laPatricia Charlton RN RN Alessio Lee PA PA cp Davies, Jonathon RN RN Adalberto Aceves dl4
--- NOTE | 2018-09-12 20:38 | P.HP ---
Certification for Inpatient Patient admitted to: Observation With expected LOS: <2 Midnights Practitioner: I am a practitioner with admitting privileges, knowledge of patient current condition, hospital course, and medical plan of care. Services: Services provided to patient in accordance with Admission requirements found in Title 42 Section 412.3 of the Code of Federal Regulations Patient History Date of Service: 09/12/18 Reason for admission: acute on chronic diastolic chf History of Present Illness: Ms Priest is a 63 years old woman with history of multiple medical problems including chronic diastolic CHF and CKD, who start about 2 days ago with progressive lower extremity swelling and increasing abdominal gird. Today, the patient also has had SOB and chest pain. She describe the chest pain as tightness, substernal, 5/10 of intensity, without radiation, similar to previous episodes when she had CHF exacerbation. The patient says that she has not been taking her lasix for 3 days since she was running out of it. At arrival she was hypertensive with O2 sat about 97% on RA. CXR shows mild CHF pattern, lab work remarkable for increased creatinine and BNP (close to baseline though) trop I is mildly elevated as well. Allergies morphine Allergy (Severe, Verified 08/10/18 19:54) Anaphylaxis vancomycin Allergy (Intermediate, Verified 08/10/18 19:54) Anaphylaxis amoxicillin [From Augmentin] Allergy (Verified 08/10/18 19:54) Anaphylaxis basil Allergy (Verified 08/10/18 19:54) Anaphylaxis clavulanic acid [From Augmentin] Allergy (Verified 08/10/18 19:54) Anaphylaxis nitroglycerin Adverse Reaction (Mild, Verified 07/29/17 03:02) Nausea/Vomiting Home medications list reviewed: Yes Home Medications: Allopurinol [Zyloprim*] 1 tab PO DAILY 08/10/18 Aspirin 1 tab PO DAILY 08/10/18 Atorvastatin Calcium 40 mg PO DAILY 08/10/18 Bupropion HCl [Wellbutrin] 75 mg PO DAILY 08/10/18 Carvedilol [Coreg*] 12.5 mg PO BID 08/10/18 Clopidogrel Bisulfate [Plavix*] 75 mg PO DAILY 08/10/18 Ferrous Sulfate [Ferrous Sulfate*] 1 tab PO BID 08/10/18 Gabapentin 1 tab PO BID 08/10/18 Gabapentin 300 mg PO BEDTIME 08/10/18 Insulin Detemir [Levemir] 10 units SQ BID 08/10/18 Isosorbide Mononitrate [Isosorbide Mononitrate ER] 30 mg PO DAILY 08/10/18 Nifedipine [Procardia Xl] 60 mg PO DAILY 08/10/18 Trazodone [Desyrel*] 50 mg PO BEDTIME 08/10/18 Albuterol Sulfate [Proair Hfa] 2 puff IH TID PRN #1 hfa.aer.ad 08/12/18 Bumetanide [Bumex] 1 mg PO BID #60 tablet 08/12/18 Codeine/APAP [Tylenol #3*] 1 tab PO Q6H PRN #10 tab 08/12/18 Fluticasone/Salmeterol [Advair 250-50 Diskus] 1 each IH BID #1 blst.w.dev Furosemide [Lasix] 40 mg PO DAILY PRN #30 tab 08/12/18 Hydralazine HCl [Apresoline] 100 mg PO TID #90 tablet 08/12/18 - Past Medical/Surgical History Diabetic: Yes -: COPD, former tobacco use -: Hypertension -: CAD, CABG x4 vessels -: Diabetes mellitus type 2, insulin-dependent -: Chronic diastolic CHF -: Uterine cancer status post hysterectomy -: Obstructive sleep apnea -: GERD -: Hyperlipidemia -: Chronic renal disease, stage IV -: Iron deficiency anemia -: Obesity -: Rectal surgery -: Hysterectomy -: Cholecystectomy -: Gastric surgery -: Appendectomy -: CABG x4 vessel -: Femoral popliteal bypass -: Left great toe amputation Psychosocial/ Personal History: The patient is a . Her son lives with her. She has 3 children. - Family History Father -: Heart disease, Hypertension, Stroke, Cancer Mother -: GI disease Sister -: Lung disease, Diabetes Brother -: Heart disease, Hypertension, Stroke, Cancer Notes: - Social History Smoking Status: Former smoker Alcohol use: No CD- Drugs: No Caffeine use: Yes Place of Residence: Home Review of Systems 10-point ROS is otherwise unremarkable Physical Examination - Physical Exam General: Alert, In no apparent distress HEENT: Atraumatic, PERRLA, Mucous membr. moist/pink, EOMI, Sclerae nonicteric Neck: Supple, 2+ carotid pulse no bruit, No LAD, Without JVD or thyroid abnormality Respiratory: Diminished (bibasilar), Crackles/rales (biabasilar) Cardiovascular: Regular rate/rhythm, Normal S1 S2 Gastrointestinal: Normal bowel sounds, Distended, Ascites, Tenderness (lower abdomen) Musculoskeletal: No tenderness, Swelling (bilateral LE edema 2+) Integumentary: No rashes Neurological: Normal speech, Normal strength at 5/5 x4 extr, Normal tone, Normal affect Lymphatics: No axilla or inguinal lymphadenopathy - Studies Laboratory Data (last 24 hrs) 09/12/18 19:29: Troponin I 0.05 H 09/12/18 16:00: PT 13.7 H, INR 1.17 09/12/18 16:00: WBC 5.5, Hgb 11.9 L, Hct 37.8, Plt Count 208 09/12/18 16:00: Sodium 139, Potassium 4.8, BUN 58 H, Creatinine 2.46 H, Glucose 247 H, Magnesium 2.1, Total Bilirubin 0.4, AST 31, ALT 29, Alkaline Phosphatase 225 H Assessment and Plan - Problems (Diagnosis) (1) Acute on chronic diastolic CHF (congestive heart failure) Onset Date: 03/17/18 Current Visit: No Status: Acute (2) Cuqgz-bf-pqawkky kidney injury Onset Date: 09/09/16 Current Visit: No Status: Acute Qualifiers: Acute renal failure type: unspecified Chronic kidney disease stage: stage 5 , not on chronic dialysis Qualified Code(s): N17.9 - Acute kidney failure, unspecified; N18.5 - Chronic kidney disease, stage 5 (3) Anasarca Onset Date: 10/03/17 Current Visit: No Status: Acute (4) Hypertension Current Visit: No Status: Chronic Qualifiers: Hypertension type: essential hypertension (5) Elevated troponin Onset Date: 09/09/16 Current Visit: No Status: Resolved - Plan The patient will be admitted to the hospital due to acute on chronic diastolic CHF, due to lack of medication (lasix). Will order IV lasix, Nitro paste, PRN IV medication for BP. Will resume her home medication according clinical status. Elevated trop I likely related to CHF exacerbation in context of worsening kidney failure. Will order serial trop I monitor any ways. - Advance Directives Does patient have a Living Will: No Does patient have a Durable POA for Healthcare: Yes - Code Status/Comfort Care Code Status Assessed: Yes Code Status: Full Code
[2018-09-12] MEDS ORDERED: NICOTINE 21 MG/PAT TD ONE (22:15)
[2018-09-12] MEDS ORDERED: ONDANSETRON 4 MG/2 ML VIAL IV PRN (23:21)
[2018-09-12] MEDS: FUROSEMIDE 40 MG/4 ML VIAL IV SCH (23:53)
[2018-09-12] MEDS: NITROGLYCERIN 1 GM PKT TD SCH (23:53)
[2018-09-13] MEDS ORDERED: TRAMADOL HCL 50 MG TAB PO ONE (01:24)
[2018-09-13] MEDS: HYDRALAZINE HCL 20 MG/ML VIAL IV PRN ×3 (05:30→17:44)
[2018-09-13] MEDS: NITROGLYCERIN 1 GM PKT TD SCH ×3 (05:31→17:06)
[2018-09-13 05:33] LABS: Absolute Lymphocytes (CBC) 2.6 K/uL (0.7-4.9); Eosinophils % 2.4 % (0-4.4); Hematocrit 35.3 % (36.0-45.0); Lymphocytes % 39.5 % (15.3-44.8); MPV 8.3 fL (7.6-11.3); Monocytes % 5.6 % (3.3-12.3); RBC Red Blood Cell Count 4.22 M/uL (3.86-4.86)
[2018-09-13 05:51] LABS: Potassium 4.9 mmol/L (3.5-5.1)
[2018-09-13] MEDS ORDERED: ENOXAPARIN 40 MG/0.4 ML SQ SCH (09:00)
[2018-09-13] MEDS: ENOXAPARIN 30 MG/0.3 ML SQ SCH (10:02)
[2018-09-13] MEDS: FUROSEMIDE 40 MG/4 ML VIAL IV SCH ×2 (10:02→13:50)
--- NOTE | 2018-09-13 10:35 | EKG ---
Test Date: 2018-09-12 Test Time: 19:34:45 [place]man: BIRDIE MEASUREMENT RESULTS: Intervals: Rate: 79 MD: 182 QRSD: 102 QT: 428 QTc: 490 Maxie: P: 98 MD: 182 QRS: 111 T: 134 INTERPRETIVE STATEMENTS: Normal sinus rhythm Possible Left atrial enlargement Right axis deviation Low voltage QRS Cannot rule out Anteroseptal infarct, age undetermined Pulmonary disease pattern Abnormal ECG Compared to ECG 09/12/2018 15:45:16 No significant changes Electronically Signed On 09-13-18 10:34:22 CDT by Alvaro Go
--- NOTE | 2018-09-13 10:37 | EKG ---
Test Date: 2018-09-12 Test Time: 15:45:16 Panel Sewer: KRISTYN MEASUREMENT RESULTS: Intervals: Rate: 76 SC: 178 QRSD: 102 QT: 438 QTc: 492 [place]: P: 87 SC: 178 QRS: 126 T: 141 INTERPRETIVE STATEMENTS: Normal sinus rhythm Possible Left atrial enlargement Right axis deviation Low voltage QRS Anterior infarct, age undetermined Abnormal ECG Compared to ECG 08/10/2018 15:41:52 Low QRS voltage now present Myocardial infarct finding still present Electronically Signed On 09-13-18 10:36:31 CDT by Alvaro Go
--- NOTE | 2018-09-13 12:39 | P.PN ---
Subjective Date of Service: 09/13/18 Chief Complaint: acute on chronic diastolic chf pt breathing improved and denied any CP ,palpitation or SOB no overnight events started on her home meds Review of Systems 10-point ROS is otherwise unremarkable Physical Examination - Vital Signs Temperature: 98.6 F Blood Pressure: 198/86 Pulse: 77 Respirations: 16 Pulse Ox (%): 94 - Physical Exam General: Alert, In no apparent distress, Oriented x3 HEENT: Atraumatic, Normocephalic, PERRLA Neck: Supple, JVD not distended Respiratory: Normal air movement, Rhonchi/gurgles Cardiovascular: Regular rate/rhythm, Normal S1 S2, Edema Gastrointestinal: Normal bowel sounds, Hypoactive, Soft and benign, Non- distended Musculoskeletal: No clubbing, No swelling, No erythema, No tenderness Integumentary: No rashes Neurological: Normal speech, Normal strength at 5/5 x4 extr - Studies Laboratory Data (last 24 hrs) 09/12/18 19:29: Troponin I 0.05 H 09/12/18 16:00: PT 13.7 H, INR 1.17 09/12/18 16:00: WBC 5.5, Hgb 11.9 L, Hct 37.8, Plt Count 208 09/12/18 16:00: Sodium 139, Potassium 4.8, BUN 58 H, Creatinine 2.46 H, Glucose 247 H, Magnesium 2.1, Total Bilirubin 0.4, AST 31, ALT 29, Alkaline Phosphatase 225 H Assessment And Plan - Plan acute on chronic diastolic CHf exacerbation pt ran out of her lasix for the last 3 days resume lasix IV oxygen prn CKD most berman cardiorenal monitor BUn/CR avoid nephrotoxic meds nephrology consult HTN resume her hoe meds elevated troponin mostly due to CHF dvt ppx Discharge Plan: Home Plan to discharge in: 24 Hours
[2018-09-13] MEDS ORDERED: ACETAMINOPHEN 325 MG TABLET PO PRN (12:47)
[2018-09-13 13:21] LABS: Absolute Lymphocytes (CBC) 1.4 K/uL (0.7-4.9); Basophils % 0.9 % (0-1.3); Eosinophils % 1.3 % (0-4.4); Hematocrit 37.6 % (36.0-45.0); Lymphocytes % 23.7 % (15.3-44.8); MPV 8.5 fL (7.6-11.3); RBC Red Blood Cell Count 4.48 M/uL (3.86-4.86)
[2018-09-13] MEDS: HYDRALAZINE HCL 25 MG TABLET PO SCH ×3 (13:56→21:42)
[2018-09-13] MEDS ORDERED: ALBUTEROL (VENTOLIN) INHALER IH PRN ×2 (13:57→14:00)
[2018-09-13] MEDS ORDERED: HYDRALAZINE HCL 25 MG TABLET PO SCH (14:00)
[2018-09-13] MEDS ORDERED: HOME MED 1 EA UNK (Hydralazine Hcl [Apresoline] 100 MG) PO SCH (14:00)
[2018-09-13] MEDS ORDERED: ACETAMINOPHEN 325 MG TABLET ONE (14:03)
--- NOTE | 2018-09-13 17:56 | CON ---
Date of Consultation: 09/13/2018 Additional Consulting Physician: Dr. Viramontes. Reason For Consultation: Elevated BUN and creatinine, anasarca, fluid management. 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 Follow up with Dr. Eng, the patient was in her regular state of health. According to her for the last 2 weeks, started having increase in leg swelling and shortness of breath and she ran out from her Lasix for the last 3 days. Her symptoms got worse. For that reason, presented to the hospital, found to have anasarca, elevated BUN and creatinine. For th at reason, we have been consulted. The patient denied taking any nonsteroidal. No recent change in her medication. Past Medical History: Include: 1.Hypertension. 2.Diabetes complicated with neuropathy and nephropathy. 3.Coronary artery disease, status post PTCA, complicated with congestive heart failure, diastolic dy sfunction. 4.Chronic kidney disease, baseline creatinine 2.6, GFR of 20. Follow up with Dr. Eng secondary to diabetes nephropathy, normal-sized kidney. Allergies: TO MORPHINE, CEFEPIME, TRAMADOL, AND ZOFRAN. Social History: Denies smoking. Denies drinking. Denies drug abuse. Family History: Positive for diabetes and hypertension. Review of Systems: Head and Neck: No red eye. No ear pain. GI: Increased abdominal girth. : No polyuria. No dysuria. No hematuria. 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 Respiratory: Has shortness of breath. Cardiovascular: Has leg swelling. Endocrine: No polydipsia. Skin: No rash. Neuro: Has neuropathy. Musculoskeletal: Has low back pain. Home Medications: Include nifedipine 60, isosorbide, insulin, hydralazine 100 t.i.d., gabapentin, [place] six 40 daily, fluoxetine, Plavix, carvedilol 12.5, bupropion, atorvastatin, allopurinol. Current Medications: In the hospital, aspirin, atorvastatin, carvedilol 12.5, Plavix, Lovenox, Lasix 40 t.i.d., gabapentin, nifedipine, nitroglycerin, Zofran. Physical Examination: General: When I saw the patient, the patient sitting in the bed, slightly shortness of breath. Vital Signs: Blood pressure of 198/86, pulse of 77. Chest: Crackles, bilateral. Heart: S1, S2. Systolic murmur. Abdomen: Soft. Ascites. Extremities: +2 edema. Laboratory Data: WBC 6.5, H and H 11.3/35.3, platelets 203. Sodium of 142, potassium 4.9 bicarb 27, BUN 56, creatinine 2.2, GFR of 22, calcium 8.3. Cardiac enzyme was negative. Reviewing data from t he previous admission, serum protein electrophoresis within normal limit. PC ratio +3 with BC ratio of 3 g. Serology was negative including ROGER, double-stranded hepatitis. Assessment And Plan: 1.Chronic kidney disease, stage 4 secondary to cardiorenal/diabetes nephropathy, normal-sized kidney , nephrotic range proteinuria, over volume. I am going to go ahead and increase the Lasix to 80 mg b .i.d. We will go ahead and monitor the patient. 2.Hypertension, not controlled. I am going to go ahead and increase isosorbide to 60 mg. We will u tilize the blood pressure for more diuresis. 3.Anasarca secondary to nephrotic range proteinuria, congestive heart failure, renal failure. I am going to go ahead and increase Lasix. We will place the patient on fluid restriction. The patient's TSH back in May was within normal limit. 4.Congestive heart failure. We will try to establish better volume control. 5.Ascites secondary to renal failure. Follow up with Primary. NATI/CELESTINE Voice ID: [id number] Report ID: [id number]
[2018-09-13] MEDS ORDERED: CARVEDILOL 12.5 MG TAB PO SCH (21:00)
[2018-09-13] MEDS ORDERED: HOME MED 1 EA UNK (Fluticasone/Salmeterol [Advair 250-50 Diskus] 1 EACH) IH SCH (21:00)
[2018-09-13] MEDS: GABAPENTIN 300 MG CAP PO SCH ×2 (21:00→21:45)
[2018-09-13] MEDS ORDERED: HOME MED 1 EA UNK (Insulin Detemir [Levemir] 10 UNITS) SQ SCH (21:00)
[2018-09-13] MEDS: CARVEDILOL 25 MG TAB PO SCH (21:43)
[2018-09-13] MEDS: INSULIN GLARGINE 100 UNITS/ML SQ SCH (21:43)
[2018-09-13] MEDS: NICOTINE 14 MG/PAT TD SCH (22:33)
[2018-09-13] MEDS: MELATONIN 3 MG TABLET PO PRN (22:36)
[2018-09-14] MEDS: FUROSEMIDE 40 MG/4 ML VIAL IV SCH ×2 (00:22→12:57)
[2018-09-14 04:17] LABS: Absolute Lymphocytes (CBC) 1.7 K/uL (0.7-4.9); Basophils % 1.4 % (0-1.3); Eosinophils % 1.8 % (0-4.4); Hematocrit 35.2 % (36.0-45.0); Lymphocytes % 32.4 % (15.3-44.8); MPV 8.5 fL (7.6-11.3); Monocytes % 6.3 % (3.3-12.3)
[2018-09-14 04:30] LABS: Potassium 4.6 mmol/L (3.5-5.1)
[2018-09-14] MEDS: NITROGLYCERIN 1 GM PKT TD SCH ×4 (06:00→18:00)
[2018-09-14] MEDS ORDERED: ISOSORBIDE MONO SR 30 MG TAB PO SCH (09:00)
[2018-09-14] MEDS ORDERED: BUPROPION HCL 75 MG PO SCH (09:00)
[2018-09-14] MEDS: ATORVASTATIN 40 MG TAB PO SCH (09:28)
[2018-09-14] MEDS: NICOTINE 14 MG/PAT TD SCH (09:28)
[2018-09-14] MEDS: CLOPIDOGREL 75 MG TABLET PO SCH (09:28)
[2018-09-14] MEDS: ASPIRIN 81 MG CHEWABLE TABLET PO SCH (09:29)
[2018-09-14] MEDS: NIFEDIPINE XL 60 MG TABLET PO SCH (09:29)
[2018-09-14] MEDS: GABAPENTIN 300 MG CAP PO SCH ×3 (09:29→21:25)
[2018-09-14] MEDS: HYDRALAZINE HCL 25 MG TABLET PO SCH ×3 (09:29→21:22)
[2018-09-14] MEDS: ISOSORBIDE MONO SR 60 MG TAB PO SCH (09:29)
[2018-09-14] MEDS: ENOXAPARIN 30 MG/0.3 ML SQ SCH (09:29)
[2018-09-14] MEDS: CARVEDILOL 25 MG TAB PO SCH ×2 (09:29→21:21)
[2018-09-14] MEDS: INSULIN GLARGINE 100 UNITS/ML SQ SCH ×2 (09:30→21:29)
--- NOTE | 2018-09-14 15:33 | P.PN ---
Subjective Date of Service: 09/14/18 Chief Complaint: acute on chronic diastolic chf Patient seen and examined at bedside with RN. Chart reviewed. Case discussed with nephrology at this time. Patient has no complaints to offer overnight. Does have some mild shortness of breath however states that is much better than before Review of Systems 10-point ROS is otherwise unremarkable Physical Examination - Vital Signs Temperature: 97.3 F Blood Pressure: 179/79 Pulse: 64 Respirations: 20 Pulse Ox (%): 94 - Physical Exam General: Alert, In no apparent distress Respiratory: Normal air movement, Crackles/rales Cardiovascular: Regular rate/rhythm, Normal S1 S2 Gastrointestinal: Normal bowel sounds, No tenderness Musculoskeletal: No tenderness, Swelling (2+) Integumentary: No rashes Neurological: Normal speech, Normal tone, Normal affect Lymphatics: No axilla or inguinal lymphadenopathy - Studies Medications List Reviewed: Yes Assessment And Plan - Current Problems (Diagnosis) (1) Acute exacerbation of CHF (congestive heart failure) Onset Date: 02/04/17 Current Visit: No Status: Acute Plan: Acute on chronic CHF exacerbation. Most likely secondary to cardiorenal syndrome. -nephrology and cardiology consulted. Appreciated recommendations at this time -IV Lasix 80 mg q.12 hr. Currently patient is diuresing well. Will continue Lasix here in the hospital -monitor patient close -strict i&o along with fluid restriction and sodium restriction as well Qualifiers: Qualified Code(s): I50.23 - Acute on chronic systolic (congestive) heart failure (2) Chronic renal disease Onset Date: 10/03/17 Current Visit: No Status: Chronic Plan: Acute on chronic renal disease most likely secondary to cardiorenal syndrome -IV Lasix at this time -nephrology has been consulted appreciated recommendations at this time Qualifiers: Chronic kidney disease stage: stage 3 (moderate) Qualified Code(s): N18.3 - Chronic kidney disease, stage 3 (moderate) (3) CAD (coronary artery disease) Onset Date: 10/03/17 Current Visit: No Status: Chronic Qualifiers: Coronary Disease-Associated Artery/Lesion type: [place] artery [place] vs. 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 Diabetes mellitus complication status: with other specified complication Qualified Code(s): E11.69 - Type 2 diabetes mellitus with other specified complication; Z79.4 - terminal supervisor (current) use of insulin (6) GERD (gastroesophageal reflux disease) Onset Date: 10/03/17 Current Visit: No Status: Chronic Qualifiers: Esophagitis presence: without esophagitis Qualified Code(s): K21.9 - Gastro -esophageal reflux disease without esophagitis (7) History of - depression Current Visit: No Status: Chronic (8) History of - hypertension Current Visit: No Status: Chronic (9) Hyperlipidemia Onset Date: 10/03/17 Current Visit: No Status: Chronic Qualifiers: Hyperlipidemia type: mixed hyperlipidemia Qualified Code(s): E78.2 - Mixed hyperlipidemia (10) Peripheral vascular disease Onset Date: 10/03/17 Current Visit: No Status: Chronic (11) Tobacco abuse Onset Date: 02/04/17 Current Visit: No Status: Chronic - Plan Pending clinical improvement at this time. Discharge Plan: Home Plan to discharge in: 48 Hours - Code Status/Comfort Care Code Status Assessed: Yes Critical Care: No
[2018-09-14] MEDS: MELATONIN 3 MG TABLET PO PRN (21:21)
[2018-09-15] MEDS: FUROSEMIDE 40 MG/4 ML VIAL IV SCH ×2 (00:48→12:53)
--- NOTE | 2018-09-15 01:43 | PN ---
Date of Progress Note: 09/14/2018 Chief Complaint: Diabetic kidney disease, hypertension, shortness of breath, fluid overload. History Of Present Illness: The patient presented to the hospital because of shortness of breath. S he has history of chronic kidney disease stage 4. Creatinine baseline is 2.6 and BUN about 20. The patient has history of diabetic nephropathy. Over the last 2 weeks, she developed leg edema because she ran out of Lasix for 3 days. The patient was found to have anasarca, elevated BUN and creatinine . She was started on diuretics to control volemia. Review of Systems: Denies fever, chills. Physical Examination: Lungs: Clear to auscultation bilaterally. Heart: S1, S2. Abdomen: Soft, benign, nontender. Extremities: Edema 3+. Laboratory Data: BUN 56, creatinine 2.2, calcium 8.3. Hemoglobin 11.3, WBC 5.4, platelet count is 1 85,000. Sodium 140, potassium 4.6, chloride 107, CO2 27, BUN 53, creatinine 2.09, glucose 153, calci um 8.3. On arrival to the hospital, creatinine level was 2.46 and BUN was 58. Impression And Plan: 1.Prerenal azotemia on chronic kidney disease stage 4, fluid overload, anasarca, shortness of breath , respiratory failure with diastolic dysfunction, congestive heart failure acute on chronic. Continu e Lasix, low-sodium diet. 2.Diabetic kidney disease. Continue blood pressure medication. 3.Anasarca secondary to nephrotic range proteinuria associated with fluid overload. The patient albert l require adjustment of Lasix to control congestive heart failure pending TSH. 4.Ascites secondary to renal failure. Follow up with primary team. 5.Fluid overload. Continue Lasix 80 mg twice a day. EB/MODL Voice ID: [id number] Report ID: [id number]
[2018-09-15 05:40] LABS: Basophils % 1.2 % (0-1.3); Eosinophils % 2.6 % (0-4.4); Lymphocytes % 35.6 % (15.3-44.8); MPV 8.1 fL (7.6-11.3); Monocytes % 6.8 % (3.3-12.3); RBC Red Blood Cell Count 3.93 M/uL (3.86-4.86)
[2018-09-15 05:54] LABS: Potassium 4.6 mmol/L (3.5-5.1)
[2018-09-15] MEDS: NITROGLYCERIN 1 GM PKT TD SCH ×5 (05:57→23:18)
[2018-09-15] MEDS: NICOTINE 14 MG/PAT TD SCH (09:25)
[2018-09-15] MEDS: INSULIN GLARGINE 100 UNITS/ML SQ SCH ×2 (09:25→21:27)
[2018-09-15] MEDS: ENOXAPARIN 30 MG/0.3 ML SQ SCH (09:25)
[2018-09-15] MEDS: NIFEDIPINE XL 60 MG TABLET PO SCH (09:26)
[2018-09-15] MEDS: ATORVASTATIN 40 MG TAB PO SCH (09:26)
[2018-09-15] MEDS: ASPIRIN 81 MG CHEWABLE TABLET PO SCH (09:27)
[2018-09-15] MEDS: HYDRALAZINE HCL 25 MG TABLET PO SCH ×3 (09:27→21:26)
[2018-09-15] MEDS: CARVEDILOL 25 MG TAB PO SCH ×2 (09:27→21:27)
[2018-09-15] MEDS: CLOPIDOGREL 75 MG TABLET PO SCH (09:27)
[2018-09-15] MEDS: GABAPENTIN 300 MG CAP PO SCH ×3 (09:28→21:27)
[2018-09-15] MEDS: ISOSORBIDE MONO SR 60 MG TAB PO SCH (09:30)
--- NOTE | 2018-09-15 19:15 | P.PN ---
Subjective Date of Service: 09/15/18 Chief Complaint: acute on chronic diastolic chf Subjective: Improving Pt with CKD IV and CHF exacerbation Today Cr improving BP controlled LE edema +1 cont diuresis PT/Ot cleared for discharge from nephrology point of view Physical Examination - Vital Signs Temperature: 97.8 F Blood Pressure: 127/79 Pulse: 70 Respirations: 18 Pulse Ox (%): 93 - Physical Exam General: In no apparent distress, Oriented x3 HEENT: Atraumatic Neck: Supple, Without JVD or thyroid abnormality Respiratory: Clear to auscultation bilaterally Cardiovascular: Regular rate/rhythm, Normal S1 S2, No rubs, No murmurs, Edema Gastrointestinal: Normal bowel sounds, Soft and benign Integumentary: No rashes - Studies Medications List Reviewed: Yes Assessment And Plan - Current Problems (Diagnosis) (1) Acute exacerbation of CHF (congestive heart failure) Onset Date: 02/04/17 Current Visit: No Status: Acute Qualifiers: Qualified Code(s): I50.23 - Acute on chronic systolic (congestive) heart failure - Plan CKD IV Cr improving Cont lasix renal dose meds CHF exacerbation Cont lasix dyspnea resolved Chronic anemia H/H stable HTN controlled
[2018-09-15] MEDS: CODEINE 30MG/APAP 300MG TAB PO PRN (21:26)
[2018-09-15] MEDS: MELATONIN 3 MG TABLET PO PRN (21:27)
[2018-09-16] MEDS: FUROSEMIDE 40 MG/4 ML VIAL IV SCH ×3 (00:38→22:00)
[2018-09-16] MEDS: NITROGLYCERIN 1 GM PKT TD SCH ×3 (05:26→16:50)
--- NOTE | 2018-09-16 08:52 | P.PN ---
Subjective Date of Service: 09/16/18 Chief Complaint: acute on chronic diastolic chf Subjective: Improving (Patient has been up and walking the room. No sob) Review of Systems 10-point ROS is otherwise unremarkable Musculoskeletal: Leg Pain (chronic knee pain) Physical Examination - Vital Signs Temperature: 97.9 F Blood Pressure: 134/64 Pulse: 57 Respirations: 16 Pulse Ox (%): 94 - Physical Exam General: Alert, In no apparent distress HEENT: Atraumatic, PERRLA, EOMI Neck: Supple, JVD not distended Respiratory: Clear to auscultation bilaterally, Normal air movement Cardiovascular: Regular rate/rhythm, Normal S1 S2 Gastrointestinal: Normal bowel sounds, No tenderness Musculoskeletal: No tenderness Integumentary: No rashes Neurological: Normal speech, Normal tone, Normal affect Lymphatics: No axilla or inguinal lymphadenopathy - Studies Medications List Reviewed: Yes Assessment & Plan - Problems (Diagnosis) (1) Acute renal failure superimposed on stage 3 chronic kidney disease Current Visit: Yes Status: Acute Plan: being follloweb by renal. She is staying at a [facility]. Will need to continue diuresis due to the CHF. Will monitor the creatine. Qualifiers: Acute renal failure type: unspecified Qualified Code(s): N17.9 - Acute kidney failure, unspecified; N18.3 - Chronic kidney disease, stage 3 (moderate) (2) Acute on chronic diastolic CHF (congestive heart failure) Onset Date: 03/17/18 Current Visit: No Status: Chronic Plan: Patient is improving. Will have her ambulate with PT. See if she is back to her baseline. She does not have her walker. Her daughter may bring it today. Hopefully when she can ambulate will speed up her recovery. (3) CAD (coronary artery disease) Onset Date: 10/03/17 Current Visit: No Status: Chronic Qualifiers: Coronary Disease-Associated Artery/Lesion type: [place] artery [place] vs. transplanted heart: [place] heart Associated angina: with stable angina Qualified Code(s): I25.118 - Atherosclerotic heart disease of [place] coronary artery with other forms of angina pectoris (4) COPD (chronic obstructive pulmonary disease) Onset Date: 02/04/17 Current Visit: No Status: Chronic Plan: stable will need to continue discussing tobacco cessation. Qualifiers: COPD type: chronic bronchitis Chronic bronchitis type: mucopurulent Qualified Code(s): J41.1 - Mucopurulent chronic bronchitis (5) Diabetes mellitus Onset Date: 04/28/15 Current Visit: No Status: Chronic Plan: continue home medications. Discharge Plan: Home Plan to discharge in: 24 Hours - Code Status/Comfort Care Code Status Assessed: No Physician Review: Patient Assessed, Agree with Above Assessment and Plan Critical Care: No Time Spent Managing Pts Care (In Minutes): 20
[2018-09-16 09:26] LABS: Potassium 4.7 mmol/L (3.5-5.1)
[2018-09-16] MEDS: NICOTINE 14 MG/PAT TD SCH (09:57)
[2018-09-16] MEDS: ATORVASTATIN 40 MG TAB PO SCH (09:58)
[2018-09-16] MEDS: CLOPIDOGREL 75 MG TABLET PO SCH (09:58)
[2018-09-16] MEDS: ASPIRIN 81 MG CHEWABLE TABLET PO SCH (09:58)
[2018-09-16] MEDS: GABAPENTIN 300 MG CAP PO SCH ×3 (09:58→22:00)
[2018-09-16] MEDS: NIFEDIPINE XL 60 MG TABLET PO SCH (09:58)
[2018-09-16] MEDS: CARVEDILOL 25 MG TAB PO SCH ×2 (09:59→22:00)
[2018-09-16] MEDS: HYDRALAZINE HCL 25 MG TABLET PO SCH ×3 (09:59→22:00)
[2018-09-16] MEDS: ISOSORBIDE MONO SR 60 MG TAB PO SCH (09:59)
[2018-09-16] MEDS: ENOXAPARIN 30 MG/0.3 ML SQ SCH (10:00)
[2018-09-16] MEDS: INSULIN GLARGINE 100 UNITS/ML SQ SCH ×2 (10:11→22:01)
[2018-09-16] MEDS: CODEINE 30MG/APAP 300MG TAB PO PRN ×2 (12:50→18:49)
--- NOTE | 2018-09-16 12:52 | PN ---
Date of Progress Note: 09/16/2018 Subjective: The patient was admitted with CHF exacerbation and anasarca. Physical Examination: Vital Signs: When I saw the patient blood pressure 134/64, pulse of 57, afebrile. The patient had u rine output of 2100. The patient had good urine output. Her weight dropped to 199. Chest: Crackles bilateral. Heart: S1 and S2. Systolic murmur. Abdomen: Soft and nontender. Extremities: Plus edema. Laboratory Data: H and H 10.5/33. Sodium 138, potassium 4.7, bicarb 30, BUN 58, creatinine 2.5, marilin cium 8.4. Medications: Current medication includes nicotine, aspirin, Plavix, Lovenox, carvedilol 25 b.i.d., h ydralazine 100 t.i.d., isosorbide 60, nifedipine 60 daily, nitroglycerin, Lasix 80 b.i.d. Assessment And Plan: 1.Acute kidney injury on chronic kidney disease, back to baseline. Still on the over volume side. I am going to continue diuresis. We will add low dose of Zaroxolyn and we will monitor the patient. 2.Hypertension, controlled, optimal. We will try to utilize the blood pressure for more diuresis. I am going to go ahead and add metolazone. We will increase the Lasix to t.i.d. and I am going to de crease her nifedipine to 30. Plan to DC. 3.Anasarca secondary to cardiorenal, responding to diuresis, still over volume as above. We will fo llow up TSH. GAMA Voice ID: [id number] Report ID: [id number]
[2018-09-16] MEDS: MELATONIN 3 MG TABLET PO PRN (22:13)
[2018-09-17 01:30] VITALS: O2SAT 90
[2018-09-17 05:15] VITALS: BMI 31.3
[2018-09-17] MEDS: NITROGLYCERIN 1 GM PKT TD SCH ×2 (05:20)
[2018-09-17 06:24] LABS: Thyroid Stimulating Hormone 7.83 uIU/mL (0.360-3.740)
[2018-09-17] MEDS: FUROSEMIDE 40 MG/4 ML VIAL IV SCH (08:40)
[2018-09-17] MEDS: HYDRALAZINE HCL 25 MG TABLET PO SCH (08:42)
[2018-09-17] MEDS: GABAPENTIN 300 MG CAP PO SCH (08:43)
[2018-09-17] MEDS: ASPIRIN 81 MG CHEWABLE TABLET PO SCH (08:43)
[2018-09-17] MEDS: ISOSORBIDE MONO SR 60 MG TAB PO SCH (08:43)
[2018-09-17] MEDS: CARVEDILOL 25 MG TAB PO SCH (08:43)
[2018-09-17] MEDS: ATORVASTATIN 40 MG TAB PO SCH (08:43)
[2018-09-17] MEDS: CLOPIDOGREL 75 MG TABLET PO SCH (08:44)
[2018-09-17] MEDS: NICOTINE 14 MG/PAT TD SCH (08:44)
[2018-09-17] MEDS: ENOXAPARIN 30 MG/0.3 ML SQ SCH (08:44)
[2018-09-17] MEDS: INSULIN GLARGINE 100 UNITS/ML SQ SCH (08:44)
[2018-09-17] MEDS ORDERED: NIFEDIPINE XL 30 MG TABLET PO SCH (09:00)
[2018-09-17] MEDS ORDERED: METOLAZONE 2.5 MG TABLET PO SCH (09:00)
--- NOTE | 2018-09-17 09:47 | P.DS ---
Admission Date: 09/16/18 Discharge Date: 09/17/18 Disposition: ROUTINE DISCHARGE Discharge Condition: GOOD Reason for Admission: acute on chronic diastolic chf - Problems (1) Acute renal failure superimposed on stage 3 chronic kidney disease Current Visit: Yes Status: Acute Qualifiers: Acute renal failure type: unspecified Qualified Code(s): N17.9 - Acute kidney failure, unspecified; N18.3 - Chronic kidney disease, stage 3 (moderate) (2) Acute on chronic diastolic CHF (congestive heart failure) Onset Date: 03/17/18 Current Visit: No Status: Chronic (3) CAD (coronary artery disease) Onset Date: 10/03/17 Current Visit: No Status: Chronic Qualifiers: Coronary Disease-Associated Artery/Lesion type: [place] artery [place] vs. transplanted heart: [place] heart Associated angina: with stable angina Qualified Code(s): I25.118 - Atherosclerotic heart disease of [place] coronary artery with other forms of angina pectoris (4) COPD (chronic obstructive pulmonary disease) Onset Date: 02/04/17 Current Visit: No Status: Chronic Qualifiers: COPD type: chronic bronchitis Chronic bronchitis type: mucopurulent Qualified Code(s): J41.1 - Mucopurulent chronic bronchitis (5) Diabetes mellitus Onset Date: 04/28/15 Current Visit: No Status: Chronic Brief History of Present Illness: Patient was admitted by the hospitalist service for chf exacerbation. Please see the H&P note. Hospital Course: Patient was admitted for chf by the hospitalist. She was doing well with diuresis. Creatine was monitored. She is doing well this morning. Ambulated with PT. No shortness of breath. The patient will be discharged home on 40mg of lasix bid for 1 week. Then back to her regular dosage of 40mg qday. Please follow up with me in 2 weeks. Thank you for allowing me to be a part of her care. Vital Signs/Physical Exam: Temp Pulse Resp BP Pulse Ox 97.6 F 58 16 134/62 90 L 09/17/18 04:00 09/17/18 04:00 09/17/18 04:00 09/17/18 04:00 09/17/18 04:00 General: Alert, In no apparent distress HEENT: Atraumatic, PERRLA, EOMI Neck: Supple, JVD not distended Respiratory: Clear to auscultation bilaterally, Normal air movement Cardiovascular: Regular rate/rhythm, Normal S1 S2 Gastrointestinal: Normal bowel sounds, No tenderness Musculoskeletal: No tenderness Integumentary: No rashes Neurological: Normal speech, Normal tone, Normal affect Lymphatics: No axilla or inguinal lymphadenopathy Laboratory Data at Discharge: WBC 5.7 K/uL (4.3-10.9) 09/15/18 05:14 Hgb 10.5 g/dL (12.0-15.0) L 09/15/18 05:14 Hct 33.0 % (36.0-45.0) L 09/15/18 05:14 Plt Count 197 K/uL (152-406) 09/15/18 05:14 PT 13.7 SECONDS (9.5-12.5) H 09/12/18 16:00 INR 1.17 09/12/18 16:00 Sodium 138 mmol/L (136-145) 09/16/18 09:00 Potassium 4.7 mmol/L (3.5-5.1) 09/16/18 09:00 BUN 58 mg/dL (7-18) H 09/16/18 09:00 Creatinine 2.58 mg/dL (0.55-1.3) H 09/16/18 09:00 Glucose 182 mg/dL (74-106) H 09/16/18 09:00 Magnesium 2.1 mg/dL (1.8-2.4) 09/12/18 16:00 Total Bilirubin 0.4 mg/dL (0.2-1.0) 09/12/18 16:00 AST 31 U/L (15-37) 09/12/18 16:00 ALT 29 U/L (12-78) 09/12/18 16:00 Alkaline Phosphatase 225 U/L (45-117) H 09/12/18 16:00 Troponin I 0.06 ng/mL (0.0-0.045) H 09/13/18 05:16 Home Medications: Aspirin 1 tab PO DAILY 08/10/18 Atorvastatin Calcium 40 mg PO DAILY 08/10/18 Bupropion HCl [Wellbutrin] 75 mg PO DAILY 08/10/18 Carvedilol [Coreg*] 12.5 mg PO BID 08/10/18 Clopidogrel Bisulfate [Plavix*] 75 mg PO DAILY 08/10/18 Gabapentin 1 tab PO BID 08/10/18 Gabapentin 300 mg PO BEDTIME 08/10/18 Insulin Detemir [Levemir] 10 units SQ BID 08/10/18 Isosorbide Mononitrate [Isosorbide Mononitrate ER] 30 mg PO DAILY 08/10/18 Nifedipine [Procardia Xl] 60 mg PO DAILY 08/10/18 Albuterol Sulfate [Proair Hfa] 2 puff IH TID PRN #1 hfa.aer.ad 08/12/18 Codeine/APAP [Tylenol #3*] 1 tab PO Q6H PRN #10 tab 08/12/18 Fluticasone/Salmeterol [Advair 250-50 Diskus] 1 each IH BID #1 blst.w.dev Hydralazine HCl [Apresoline] 100 mg PO TID #90 tablet 08/12/18 Diet: AHA Activity: Ad shira Physician Review: Patient Assessed, Agree with Above Assessment and Plan Time spent managing pt's care (in minutes): 30
[2018-09-17 10:24] VITALS: TEMP 97.3
[2018-09-17 11:25] VITALS: BP 140/67
== END 2018-09-17 11:12 | disposition home health service (06) | DRG 291 ==
LOC: ER 15:07 → OBSVTOIN 20:36 → ERHOLD 20:36 → INTOOBSV 20:36 → 2ND 22:30 → OBSVTOIN 09-16 09:45
PROVIDERS: ADMIT Family Medicine; ATTEND Internal Medicine
DX: I13.0 Hypertensive heart and chronic kidney disease with heart failure and stage 1 through stage 4 chronic kidney disease, or unspecified chronic kidney disease (principal); I50.33 Acute on chronic diastolic (congestive) heart failure; N17.9 Acute kidney failure, unspecified; R18.8 Other ascites; N18.3 Chronic kidney disease, stage 3 (moderate); E11.22 Type 2 diabetes mellitus with diabetic chronic kidney disease; J44.9 Chronic obstructive pulmonary disease, unspecified; E11.21 Type 2 diabetes mellitus with diabetic nephropathy; E11.40 Type 2 diabetes mellitus with diabetic neuropathy, unspecified; E11.51 Type 2 diabetes mellitus with diabetic peripheral angiopathy without gangrene; I25.10 Atherosclerotic heart disease of native coronary artery without angina pectoris; G47.33 Obstructive sleep apnea (adult) (pediatric); K21.9 Gastro-esophageal reflux disease without esophagitis; E78.5 Hyperlipidemia, unspecified; E66.9 Obesity, unspecified; Z68.31 Body mass index [BMI] 31.0-31.9, adult; Z79.82 Long term (current) use of aspirin; Z79.4 Long term (current) use of insulin; Z79.51 Long term (current) use of inhaled steroids; Z85.42 Personal history of malignant neoplasm of other parts of uterus; Z87.891 Personal history of nicotine dependence; Z95.1 Presence of aortocoronary bypass graft; Z90.710 Acquired absence of both cervix and uterus; Z88.5 Allergy status to narcotic agent
CPT/HCPCS: 36415; 71045; 80048; 80076; 81003; 82962; 83735; 83880; 84439; 84443; 84484; 85025; 85610; 93005; 94640; 96365; 96366; 96375; 97162; 99285; G0378; J0360; J1650; J1940; J2405; J3010

== ENCOUNTER 2018-11-01 19:07 | Inpatient (IN) | payer MEDICAID ==
--- OUTSIDE RECORDS SUMMARY | 2018-11-01 19:10 | XMS REPORT | Clinical Summary ---
:1955 Author Organization [facility] Address [address] [place] [address] Care Team Providers Name Role Phone Adrianna [...] for Pain for up to 360 days. Active Problems Problem Noted Date S/P [...] S/p CABG- PRITCHETT-LAD,SVG-PDA,ramus,OM3 on 05/20/17 Atherosclerosis of [place] artery of extremity with ulceration 05/19/2017 Overview: RLE PVD Acute CHF 05/14/2017 COPD (chronic obstructive pulmonary disease) 05/14/2017 Controlled type 2 diabetes mellitus with circulatory disorder, with 05/14/2017 long-term current use of insulin Smoker 05/14/2017 Frequent PVCs 05/12/2017 Family History Medical History Relation Name Comments [...] Not on file Implants Implanted Type Area Embroidery Finisher Device Shelf Model / Identifier Expiration Serial / Date Lot Device Clsr Angio-Seal Vip 8fr [id number] - [id number] Cardiovascular N/A: [employer] 01/28/2018 [id number] / Implanted: Qty: 1 on 05/12/2017 by Sandra Gaytan MD Groin MED:CARDIAC / SURG [id number] Grft Eptfe-Heparin Rng [id number] - [id number] Graft/Patch Right: [employer]ORE & 04/09/2021 [id number] / Implanted: Qty: 1 on 08/05/2017 by Mariela Ramirez MD Leg ASSC:MED PRDT [id number] / N/A Procedures Procedure Name Priority Date/Time Associated Diagnosis Comments RHYTHM STRIP - SCAN 07/14/2018 9:01 AM CDT after 10/31/2017 Results RHYTHM STRIP - SCAN (07/14/2018 9:01 AM CDT) Narrative Performed At after 10/31/2017 Insurance Payer Benefit Plan / Group Subscriber ID Type Phone Address [place] xxxxxxxxx Advance Directives For more information, please contact:[address] [phone] Code Status Date Activated Date Inactivated Comments [...]
--- OUTSIDE RECORDS SUMMARY | 2018-11-01 19:18 | XMS REPORT ---
:1955 Author Organization [employer] Care Team Providers Name Role Phone Franki Mark Provider Role Unavailable Allergies, Adverse Reactions, Alerts Substance Reaction Event Type Vancomycin HCl vomiting Drug Allergy Nitroglycerin vomiting Drug Allergy Morphine Sulfate headache, breathing Drug Allergy Clindamycin HCl vomiting Drug Allergy Problems Problem Type Condition Code Onset Dates Condition Status Problem Essential (primary) hypertension I10 Active Problem Depression, unspecified depression F32.9 Active type Problem History of cancer Z85.9 Active Problem Primary insomnia F51.01 Active Assessment Chronic acquired lymphedema I89.0 Active Problem Chronic kidney disease, stage 4 N18.4 Active (severe) Assessment Tobacco abuse counseling Z71.6 Active Assessment Encounter for general adult medical Z00.00 Active examination without abnormal findings Problem Chronic acquired lymphedema I89.0 Active Problem Diabetic polyneuropathy associated E11.42 Active with type 2 diabetes mellitus Problem Chronic diastolic congestive heart I50.32 Active failure Problem Chronic diastolic congestive heart I50.32 Active failure, NYHA class 2 Problem Chronic obstructive pulmonary J44.9 Active disease, unspecified COPD type 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 Z79.4 Active Assessment History of stroke Z86.73 Active Assessment Chronic diastolic congestive heart I50.32 Active failure, NYHA class 2 Assessment Type 2 diabetes mellitus with E11.65 Active hyperglycemia Problem Type 2 diabetes mellitus with E11.22 Active diabetic chronic kidney disease Problem Kidney disease N28.9 Active Problem History of stroke Z86.73 Active Problem Type 2 diabetes mellitus with E11.65 Active hyperglycemia Problem senior care current use of insulin Z79.4 Active Medications Medication Code Code Instructions Start End Status Dosage System Date Date Trazodone HCl [facility] 42040902844 50 MG Oral Active TAKE 1 TABLET BY MOUTH EVERYDAY AT BEDTIME Isosorbide [facility] 52470719461 30 MG Oral Active TAKE 1 Mononitrate ER TABLET BY MOUTH EVERY DAY NIFEdipine ER ND 29028977510 60 MG Oral Active TAKE 1 TABLET BY MOUTH EVERY DAY BuPROPion HCl ND 42506086209 75 MG Oral Active TAKE 1 TABLET BY MOUTH EVERY DAY Acetaminophen-C ND 41868590975 300-30 MG Oral Active (Schedule odeine #3 III Drug) TAKE 1 TABLET BY MOUTH EVERY 6 HOURS NEEDED FOR PAIN Carvedilol [facility] 31063301014 12.5 MG Oral Active TAKE 1 TABLET BY MOUTH TWICE A DAY Advair Diskus [facility] 35114543356 250-50 MCG/DOSE Active INHALE 1 DOSE BY MOUTH TWICE DAILY. RINSE MOUTH AFTER USE Atorvastatin [facility] 98074493546 40 MG Oral Active TAKE 1 Calcium TABLET BY MOUTH EVERY DAY Allopurinol [facility] 01368548859 100 MG Oral Active TAKE 1 TABLET BY MOUTH TWICE A DAY Gabapentin [facility] 55067189754 100 MG Oral Active TAKE 1 CAPSULE BY MOUTH THREE TIMES A DAY Clopidogrel [facility] 06062879910 75 MG Oral Active TAKE 1 Bisulfate TABLET BY MOUTH EVERY DAY Vitamin D [facility] 45165839713 88896 UNIT Oral Active TAKE ONE (Ergocalciferol CAPSULE BY ) MOUTH ONE TIME PER WEEK Furosemide [facility] 40856718830 40 MG Active TAKE BY MOUTH 1 TABLET NEEDED FOR SHORTNESS OF BREATH MAY TAKE NEEDED IF WITH INCREASE EDEMA ProAir HFA [facility] 37583439173 108 (90 Base) Active INHALE 2 MCG/ACT PUFFS 3 TIMES A DAY NEEDED FOR SHORTNESS OF BREATH HydrALAZINE HCl [facility] 12540707637 100 MG Active TAKE 1 TABLET BY MOUTH THREE TIMES A DAY Levemir [facility] 44186853188 100 UNIT/ML Active INJECT 10 FlexTouch Subcutaneous UNITS BELOW THE SKIN IN THE MORNING Results No Known Results Summary Purpose [employer]Clinical[employer] Submission
--- OUTSIDE RECORDS SUMMARY | 2018-11-01 19:18 | XMS REPORT ---
:1955 Author Organization [employer] Care Team Providers Name Role Phone Franki Mark Provider Role Unavailable Allergies No Known Allergies Problems Problem Type Condition Code Onset Dates Condition Status Problem Essential (primary) hypertension I10 Active Problem Depression, unspecified depression F32.9 Active type Problem History of cancer Z85.9 Active Problem Primary insomnia F51.01 Active Problem Chronic kidney disease, stage 4 N18.4 Active (severe) Problem Chronic acquired lymphedema I89.0 Active Problem Diabetic polyneuropathy associated E11.42 Active with type 2 diabetes mellitus Problem Chronic diastolic congestive heart I50.32 Active failure Problem Chronic diastolic congestive heart I50.32 Active failure, NYHA class 2 Problem Chronic obstructive pulmonary J44.9 Active disease, unspecified COPD type Problem Type 2 diabetes mellitus with E11.22 Active diabetic chronic kidney disease Problem Kidney disease N28.9 Active Problem History of stroke Z86.73 Active Problem Type 2 diabetes mellitus with E11.65 Active hyperglycemia Problem residential current use of insulin Z79.4 Active Medications No Known Medications Results No Known Results Summary Purpose [employer] Submission
--- OUTSIDE RECORDS SUMMARY | 2018-11-01 19:18 | XMS REPORT ---
:1955 [facility] Address [address] [place] [address] Care Team Providers Name Role Phone CORINA [...] (BEAKER) (test 220 mg/dL 70-110 TESTED AT [facility] [address] [facility] qyns=[phone]) [facility] [address] BASIC METABOLIC [id number] 15:47:00 Test Item Value Reference Range Comments SODIUM (BEAKER) (test 135 meq/L 136-145 ahfm=053) POTASSIUM (BEAKER) (test 4.8 meq/L 3.5-5.1 kngv=479) CHLORIDE (BEAKER) (test 102 meq/L 98-107 zqlr=895) CO2 (BEAKER) (test 25 meq/L 22-29 ohxv=568) BLOOD UREA NITROGEN 51 mg/dL 7-21 (BEAKER) (test opyo=536) CREATININE (BEAKER) (test 1.99 mg/dL 0.57-1.25 pjje=612) GLUCOSE RANDOM (BEAKER) 201 mg/dL 70-105 (test tuxd=444) CALCIUM (BEAKER) (test 8.8 mg/dL 8.4-10.2 lbbc=791) EGFR (BEAKER) (test 25 mL/min/1.73 sq m ESTIMATED GFR IS NOT iemz=7496) ACCURATE CREATININE CLEARANCE IN PREDICTING GLOMERULAR FILTRATION RATE. ESTIMATED GFR IS NOT APPLICABLE FOR DIALYSIS PATIENTS. POCT-GLUCOSE [id number] 11:30:00 Test Item Value Reference Range Comments POC-GLUCOSE METER (BEAKER) 268 mg/dL 70-110 TESTED AT [facility] [address] [facility] (test cztl=6162) [facility] [address] POCT-GLUCOSE [id number] 07:08:00 Test Item Value Reference Range Comments POC-GLUCOSE METER (BEAKER) 208 mg/dL 70-110 TESTED AT [facility] [address] [facility] (test vwsn=5522) [facility] [address] CALCIUM, [id number] 06:47:00 Test Item Value Reference Range Comments CALCIUM IONIZED (BEAKER) (test euug=196) 1.11 mmol/L 1.12-1.27 PH, BLOOD (BEAKER) (test nfaa=4473) 7.40 BASIC METABOLIC [id number] 06:40:00 Test Item Value Reference Range Comments SODIUM (BEAKER) (test 134 meq/L 136-145 gktr=754) POTASSIUM (BEAKER) (test 4.9 meq/L 3.5-5.1 gyrs=036) CHLORIDE (BEAKER) (test 103 meq/L 98-107 seol=160) CO2 (BEAKER) (test 24 meq/L 22-29 aaep=442) BLOOD UREA NITROGEN 53 mg/dL 7-21 (BEAKER) (test dbiq=258) CREATININE (BEAKER) (test 2.02 mg/dL 0.57-1.25 fuco=826) GLUCOSE RANDOM (BEAKER) 186 mg/dL 70-105 (test leup=202) CALCIUM (BEAKER) (test 9.1 mg/dL 8.4-10.2 hoyr=734) EGFR (BEAKER) (test 25 mL/min/1.73 sq m ESTIMATED GFR IS NOT lrok=9776) ACCURATE CREATININE CLEARANCE IN PREDICTING GLOMERULAR FILTRATION RATE. ESTIMATED GFR IS NOT APPLICABLE FOR DIALYSIS PATIENTS. [id number] 06:33:00 Test Item Value Reference Range Comments PHOSPHORUS (BEAKER) (test vzaz=716) 5.1 mg/dL 2.3-4.7 [id number] 06:33:00 Test Item Value Reference Range Comments MAGNESIUM (BEAKER) (test bspz=234) 2.0 mg/dL 1.6-2.6 LACTIC ACID, VENOUS, WHOLE [id number] 06:02:00 Test Item Value Reference Range Comments LACTATE BLOOD VENOUS (2) (BEAKER) (test 0.8 mmol/L 0.5-2.2 jmyr=9045) Effective 08/02/2015: Units/Reference Range ChangeNew: 0.5-2.2 mmol/L Previous: 5 -20 mg/dLCBC W/PLT COUNT & AUTO [id number] 05:54:00 Test Item Value Reference Range Comments WHITE BLOOD CELL COUNT (BEAKER) (test enqj=393) 7.1 K/ L 3.5-10.5 RED BLOOD CELL COUNT (BEAKER) (test rxqa=326) 3.68 M/ L 3.93-5.22 HEMOGLOBIN (BEAKER) (test mcfq=775) 9.0 GM/DL 11.2-15.7 HEMATOCRIT (BEAKER) (test ufiy=522) 29.6 % 34.1-44.9 MEAN CORPUSCULAR VOLUME (BEAKER) (test dpuw=246) 80.4 fL 79.4-94.8 MEAN CORPUSCULAR HEMOGLOBIN (BEAKER) (test 24.5 pg 25.6-32.2 xzzu=244) MEAN CORPUSCULAR HEMOGLOBIN CONC (BEAKER) (test 30.4 GM/DL 32.2-35.5 ored=796) RED CELL DISTRIBUTION WIDTH (BEAKER) (test 16.5 % 11.7-14.4 xgcx=090) PLATELET COUNT (BEAKER) (test sjfp=533) 215 K/CU MM 150-450 MEAN PLATELET VOLUME (BEAKER) (test gkwd=180) 9.5 fL 9.4-12.3 NUCLEATED RED BLOOD CELLS (BEAKER) (test 0 /100 WBC 0-0 bltu=600) NEUTROPHILS RELATIVE PERCENT (BEAKER) (test 42 % edqv=792) LYMPHOCYTES RELATIVE PERCENT (BEAKER) (test 46 % qboh=734) MONOCYTES RELATIVE PERCENT (BEAKER) (test 6 % kwrs=426) EOSINOPHILS RELATIVE PERCENT (BEAKER) (test 5 % jxxn=823) BASOPHILS RELATIVE PERCENT (BEAKER) (test 1 % qgfv=454) NEUTROPHILS ABSOLUTE COUNT (BEAKER) (test 2.96 K/ L 1.56-6.13 wzpk=869) LYMPHOCYTES ABSOLUTE COUNT (BEAKER) (test 3.27 K/ L 1.18-3.74 gsul=290) MONOCYTES ABSOLUTE COUNT (BEAKER) (test 0.41 K/ L 0.24-0.36 kgpr=792) EOSINOPHILS ABSOLUTE COUNT (BEAKER) (test 0.34 K/ L 0.04-0.36 ddor=842) BASOPHILS ABSOLUTE COUNT (BEAKER) (test 0.08 K/ L 0.01-0.08 vgrr=037) IMMATURE GRANULOCYTES-RELATIVE PERCENT (BEAKER) 0 % 0-1 (test xvfk=3161) POCT-GLUCOSE [id number] 21:30:00 Test Item Value Reference Range Comments POC-GLUCOSE METER (BEAKER) 248 mg/dL 70-110 TESTED AT [address] (test vbzv=4459) [facility] [address] RAD, [id number] 21:22:00Reason for exam:->fall, tailbone painFINAL REPORT RAD, [...] MDReport Verified Date/Time: 2017 21:22:03 Reading Location: [address] Reading Room POCT- GLUCOSE [id number] 17:37:00 Test Item Value Reference Range Comments POC-GLUCOSE METER (BEAKER) 222 mg/dL 70-110 TESTED AT [address] (test vxwp=0410) [facility] [address] POCT-GLUCOSE [id number] 13:55:00 Test Item Value Reference Range Comments POC-GLUCOSE METER (BEAKER) 194 mg/dL 70-110 TESTED AT [facility] [address] [facility] (test tsxw=5568) [facility] [address] POCT-GLUCOSE [id number] 12:34:00 Test Item Value Reference Range Comments POC-GLUCOSE METER (BEAKER) 229 mg/dL 70-110 TESTED AT [address] (test fowq=5723) [facility] [address] POCT-GLUCOSE [id number] 08:00:00 Test Item Value Reference Range Comments POC-GLUCOSE METER (BEAKER) 159 mg/dL 70-110 TESTED AT [address] (test zgru=0464) [facility] [address] CALCIUM, [id number] 06:00:00 Test Item Value Reference Range Comments CALCIUM IONIZED (BEAKER) (test tqvh=603) 1.05 mmol/L 1.12-1.27 PH, BLOOD (BEAKER) (test sxip=2308) 7.45 [id number] 05:59:00 Test Item Value Reference Range Comments PHOSPHORUS (BEAKER) (test mite=999) 4.8 mg/dL 2.3-4.7 [id number] 05:59:00 Test Item Value Reference Range Comments MAGNESIUM (BEAKER) (test zzsn=914) 2.0 mg/dL 1.6-2.6 BASIC METABOLIC [id number] 05:59:00 Test Item Value Reference Range Comments SODIUM (BEAKER) (test 134 meq/L 136-145 oozf=785) POTASSIUM (BEAKER) (test 4.4 meq/L 3.5-5.1 ysof=014) CHLORIDE (BEAKER) (test 103 meq/L 98-107 xswi=484) CO2 (BEAKER) (test 23 meq/L 22-29 blfu=468) BLOOD UREA NITROGEN 49 mg/dL 7-21 (BEAKER) (test gmgx=883) CREATININE (BEAKER) (test 1.69 mg/dL 0.57-1.25 irsj=436) GLUCOSE RANDOM (BEAKER) 138 mg/dL 70-105 (test kzps=404) CALCIUM (BEAKER) (test 8.7 mg/dL 8.4-10.2 ujvx=771) EGFR (BEAKER) (test 31 mL/min/1.73 sq m ESTIMATED GFR IS NOT qrcz=8159) ACCURATE CREATININE CLEARANCE IN PREDICTING GLOMERULAR FILTRATION RATE. ESTIMATED GFR IS NOT APPLICABLE FOR DIALYSIS PATIENTS. CREATINE KINASE (CK)2017-09-04 05:59:00 Test Item Value Reference Range Comments CREATINE KINASE TOTAL (BEAKER) (test rfee=369) 45 U/L 29-200 CBC W/PLT COUNT & AUTO [id number] 05:32:00 Test Item Value Reference Range Comments WHITE BLOOD CELL COUNT (BEAKER) (test wetf=044) 6.1 K/ L 3.5-10.5 RED BLOOD CELL COUNT (BEAKER) (test cnvg=669) 3.69 M/ L 3.93-5.22 HEMOGLOBIN (BEAKER) (test juzm=594) 8.8 GM/DL 11.2-15.7 HEMATOCRIT (BEAKER) (test oqmd=812) 29.3 % 34.1-44.9 MEAN CORPUSCULAR VOLUME (BEAKER) (test joyz=204) 79.4 fL 79.4-94.8 MEAN CORPUSCULAR HEMOGLOBIN (BEAKER) (test 23.8 pg 25.6-32.2 tptz=613) MEAN CORPUSCULAR HEMOGLOBIN CONC (BEAKER) (test 30.0 GM/DL 32.2-35.5 ifys=125) RED CELL DISTRIBUTION WIDTH (BEAKER) (test 16.3 % 11.7-14.4 qxwr=428) PLATELET COUNT (BEAKER) (test vhnx=948) 219 K/CU MM 150-450 MEAN PLATELET VOLUME (BEAKER) (test aqck=492) 9.4 fL 9.4-12.3 NUCLEATED RED BLOOD CELLS (BEAKER) (test 0 /100 WBC 0-0 okkr=229) NEUTROPHILS RELATIVE PERCENT (BEAKER) (test 44 % kzjd=930) LYMPHOCYTES RELATIVE PERCENT (BEAKER) (test 43 % qgga=901) MONOCYTES RELATIVE PERCENT (BEAKER) (test 6 % spdu=425) EOSINOPHILS RELATIVE PERCENT (BEAKER) (test 6 % psba=453) BASOPHILS RELATIVE PERCENT (BEAKER) (test 1 % bxlv=335) NEUTROPHILS ABSOLUTE COUNT (BEAKER) (test 2.67 K/ L 1.56-6.13 sbyp=666) LYMPHOCYTES ABSOLUTE COUNT (BEAKER) (test 2.66 K/ L 1.18-3.74 hzni=844) MONOCYTES ABSOLUTE COUNT (BEAKER) (test 0.38 K/ L 0.24-0.36 kwtf=672) EOSINOPHILS ABSOLUTE COUNT (BEAKER) (test 0.37 K/ L 0.04-0.36 ftgh=425) BASOPHILS ABSOLUTE COUNT (BEAKER) (test 0.05 K/ L 0.01-0.08 cuvt=132) IMMATURE GRANULOCYTES-RELATIVE PERCENT (BEAKER) 0 % 0-1 (test ocjl=7701) POCT-GLUCOSE [id number] 20:36:00 Test Item Value Reference Range Comments POC-GLUCOSE METER (BEAKER) 211 mg/dL 70-110 TESTED AT [address] (test qkao=5752) [place] [id number] CREATININE, RANDOM [id number] 19:55:00 Test Item Value Reference Range Comments CREATININE URINE (BEAKER) (test dmaa=232) 16.1 mg/dL Reference Range: No NormalsPROTEIN, RANDOM [id number] 19:55:00 Test Item Value Reference Range Comments PROTEIN, URINE (BEAKER) (test chll=2323) 102 mg/dL 0-14 POCT-GLUCOSE [id number] 18:04:00 Test Item Value Reference Range Comments POC-GLUCOSE METER (BEAKER) 177 mg/dL 70-110 TESTED AT [address] (test qltc=7198) [place] [id number] POCT-GLUCOSE [id number] 11:59:00 Test Item Value Reference Range Comments POC-GLUCOSE METER (BEAKER) 244 mg/dL 70-110 TESTED AT [address] (test xczo=8308) [place] [id number] POCT-GLUCOSE [id number] 07:53:00 Test Item Value Reference Range Comments POC-GLUCOSE METER (BEAKER) 160 mg/dL 70-110 TESTED AT [address] (test xwyy=0636) [place] [id number] BASIC METABOLIC [id number] 05:29:00 Test Item Value Reference Range Comments SODIUM (BEAKER) (test 136 meq/L 136-145 shzd=015) POTASSIUM (BEAKER) (test 4.5 meq/L 3.5-5.1 ksnv=612) CHLORIDE (BEAKER) (test 105 meq/L 98-107 xloz=751) CO2 (BEAKER) (test 24 meq/L 22-29 szlm=982) BLOOD UREA NITROGEN 51 mg/dL 7-21 (BEAKER) (test gnnx=413) CREATININE (BEAKER) (test 1.76 mg/dL 0.57-1.25 fgir=144) GLUCOSE RANDOM (BEAKER) 149 mg/dL 70-105 (test adjz=334) CALCIUM (BEAKER) (test 8.9 mg/dL 8.4-10.2 gbll=656) EGFR (BEAKER) (test 29 mL/min/1.73 sq m ESTIMATED GFR IS NOT fxmr=6898) ACCURATE CREATININE CLEARANCE IN PREDICTING GLOMERULAR FILTRATION RATE. ESTIMATED GFR IS NOT APPLICABLE FOR DIALYSIS PATIENTS. [id number] 05:21:00 Test Item Value Reference Range Comments MAGNESIUM (BEAKER) (test gynf=411) 2.1 mg/dL 1.6-2.6 HEPATIC FUNCTION [id number] 05:21:00 Test Item Value Reference Range Comments TOTAL PROTEIN (BEAKER) (test giqr=988) 6.8 gm/dL 6.0-8.3 ALBUMIN (BEAKER) (test ilvm=9942) 2.9 g/dL 3.5-5.0 BILIRUBIN TOTAL (BEAKER) (test pada=168) 0.5 mg/dL 0.2-1.2 BILIRUBIN DIRECT (BEAKER) (test avri=882) 0.2 mg/dL 0.1-0.5 ALKALINE PHOSPHATASE (BEAKER) (test djho=574) 173 U/L 40-150 AST (SGOT) (BEAKER) (test fwvj=631) 25 U/L 5-34 ALT (SGPT) (BEAKER) (test qtub=049) 23 U/L 6-55 TROPONIN [id number] 05:18:00 Test Item Value Reference Range Comments TROPONIN I (BEAKER) (test urwr=925) 0.05 ng/mL 0.00-0.03 Troponin I (TnI) levels [...] and persistent tachyarrhythmia.CBC W/PLT COUNT & AUTO [id number] 04:59:00 Test Item Value Reference Range Comments WHITE BLOOD CELL COUNT (BEAKER) (test aaeg=140) 6.9 K/ L 3.5-10.5 RED BLOOD CELL COUNT (BEAKER) (test ukwc=583) 3.75 M/ L 3.93-5.22 HEMOGLOBIN (BEAKER) (test ubrb=404) 8.9 GM/DL 11.2-15.7 HEMATOCRIT (BEAKER) (test qppj=073) 29.7 % 34.1-44.9 MEAN CORPUSCULAR VOLUME (BEAKER) (test mcjl=506) 79.2 fL 79.4-94.8 MEAN CORPUSCULAR HEMOGLOBIN (BEAKER) (test 23.7 pg 25.6-32.2 mghd=638) MEAN CORPUSCULAR HEMOGLOBIN CONC (BEAKER) (test 30.0 GM/DL 32.2-35.5 mlcs=685) RED CELL DISTRIBUTION WIDTH (BEAKER) (test 16.2 % 11.7-14.4 fmgu=570) PLATELET COUNT (BEAKER) (test jldb=574) 240 K/CU MM 150-450 MEAN PLATELET VOLUME (BEAKER) (test wyuc=672) 9.6 fL 9.4-12.3 NUCLEATED RED BLOOD CELLS (BEAKER) (test 0 /100 WBC 0-0 gjlt=298) NEUTROPHILS RELATIVE PERCENT (BEAKER) (test 48 % sozz=141) LYMPHOCYTES RELATIVE PERCENT (BEAKER) (test 40 % czal=509) MONOCYTES RELATIVE PERCENT (BEAKER) (test 6 % ugav=737) EOSINOPHILS RELATIVE PERCENT (BEAKER) (test 5 % mrvo=236) BASOPHILS RELATIVE PERCENT (BEAKER) (test 1 % wjie=089) NEUTROPHILS ABSOLUTE COUNT (BEAKER) (test 3.32 K/ L 1.56-6.13 nxec=523) LYMPHOCYTES ABSOLUTE COUNT (BEAKER) (test 2.76 K/ L 1.18-3.74 jnyd=362) MONOCYTES ABSOLUTE COUNT (BEAKER) (test 0.39 K/ L 0.24-0.36 qgja=608) EOSINOPHILS ABSOLUTE COUNT (BEAKER) (test 0.36 K/ L 0.04-0.36 lcmz=158) BASOPHILS ABSOLUTE COUNT (BEAKER) (test 0.06 K/ L 0.01-0.08 pzfl=464) IMMATURE GRANULOCYTES-RELATIVE PERCENT (BEAKER) 0 % 0-1 (test tlgz=4941) TROPONIN [id number] 23:40:00 Test Item Value Reference Range Comments TROPONIN I (BEAKER) (test sibl=928) 0.04 ng/mL 0.00-0.03 Troponin I (TnI) levels [...] acidosis, acute neurological disease, and persistent tachyarrhythmia.POCT-GLUCOSE [id number] 22:51:00 Test Item Value Reference Range Comments POC-GLUCOSE METER (BEAKER) 214 mg/dL 70-110 TESTED AT [address] (test ltqh=2728) [facility] [address] RAD, CHEST, 1 VIEW, NON [id number] 21:42:00Reason for exam:->CHEST PAINShould this be performed at the bedside?->YesFINAL REPORT RAD, CHEST, 1 VIEW, NON DEPT INDICATION: CHEST PAIN COMPARISON: Chest x -ray 4 weeks ago TECHNIQUE: Single frontal view of the chest. IMPRESSION: Cardiomegaly.Mild pulmonary interstitial edema with a small right-sided effusion.No acute osseous abnormality. Signed: Dario Abraham MDReport Verified Date/Time: 09/02/2017 21:42:11 Reading Location: [address] Transitional Reading Room CREATININE, RANDOM [id number] 21:10:00 Test Item Value Reference Range Comments CREATININE URINE (BEAKER) (test orbd=029) 35.5 mg/dL Reference Range: No NormalsSODIUM, RANDOM [id number] 21:10:00 Test Item Value Reference Range Comments SODIUM URINE (BEAKER) (test xwhx=614) 80 meq/L Reference Range: No NormalsURINALYSIS W/ [id number] 20:59:00 Test Item Value Reference Range Comments COLOR (BEAKER) (test fqnd=239) Light Yellow CLARITY (BEAKER) (test wvkz=280) Clear SPECIFIC GRAVITY UA (BEAKER) (test jkqj=481) 1.008 1.001-1.035 PH UA (BEAKER) (test zghu=309) 6.5 5.0-8.0 PROTEIN UA (BEAKER) (test tlyb=562) 200 mg/dL Negative GLUCOSE UA (BEAKER) (test ocec=594) 70 mg/dL Negative KETONES UA (BEAKER) (test qumt=394) Negative Negative BILIRUBIN UA (BEAKER) (test xdip=491) Negative Negative BLOOD UA (BEAKER) (test opeh=910) Negative Negative NITRITE UA (BEAKER) (test gowk=543) Negative Negative LEUKOCYTE ESTERASE UA (BEAKER) (test kxpo=142) Negative Negative UROBILINOGEN UA (BEAKER) (test ktlb=761) 0.2 mg/dL 0.2-1.0 RBC UA (BEAKER) (test tsgh=170) < /HPF WBC UA (BEAKER) (test xqpb=466) 2 /HPF BACTERIA (BEAKER) (test ghbt=248) Occasional MUCUS (BEAKER) (test tmzf=8573) Rare SQUAMOUS EPITHELIAL (BEAKER) (test hrcu=381) 2 /HPF HYALINE CASTS (BEAKER) (test hffl=646) 7 /LPF SOURCE(BEAKER) (test mpgo=2075) BASIC METABOLIC [id number] 16:49:00 Test Item Value Reference Range Comments SODIUM (BEAKER) (test 134 meq/L 136-145 ccop=402) POTASSIUM (BEAKER) (test 4.8 meq/L 3.5-5.1 qrui=368) CHLORIDE (BEAKER) (test 101 meq/L 98-107 gwsp=591) CO2 (BEAKER) (test 26 meq/L 22-29 zyxr=371) BLOOD UREA NITROGEN 53 mg/dL 7-21 (BEAKER) (test lhpw=904) CREATININE (BEAKER) (test 2.04 mg/dL 0.57-1.25 zcpg=269) GLUCOSE RANDOM (BEAKER) 267 mg/dL 70-105 (test fgjs=066) CALCIUM (BEAKER) (test 9.1 mg/dL 8.4-10.2 ttsw=311) EGFR (BEAKER) (test 25 mL/min/1.73 sq m ESTIMATED GFR IS NOT azrb=3727) ACCURATE CREATININE CLEARANCE IN PREDICTING GLOMERULAR FILTRATION RATE. ESTIMATED GFR IS NOT APPLICABLE FOR DIALYSIS PATIENTS. [id number] 16:38:00 Test Item Value Reference Range Comments PROTIME (BEAKER) (test dyzh=483) 14.4 seconds 11.7-14.7 INR (BEAKER) (test qyqs=468) 1.1 <=5.9 PARTIAL THROMBOPLASTIN TIME (BEAKER) (test 31.0 seconds 22.5-36.0 oooy=397) RECOMMENDED COUMADIN/WARFARIN INR THERAPY RANGESSTANDARD DOSE: 2.0 - 3.0 Includes: PROPHYLAXIS forvenous thrombosis, systemic embolization; TREATMENT for venous thrombosis and/or pulmonary embolus.HIGH RISK: Target INR is 2.5-3.5 for patients with mechanical heart valves.CBC W/PLT COUNT & AUTO [id number] 16:26:00 Test Item Value Reference Range Comments WHITE BLOOD CELL COUNT (BEAKER) (test xlzc=942) 6.3 K/ L 3.5-10.5 RED BLOOD CELL COUNT (BEAKER) (test haou=587) 4.22 M/ L 3.93-5.22 HEMOGLOBIN (BEAKER) (test jadm=919) 10.1 GM/DL 11.2-15.7 HEMATOCRIT (BEAKER) (test fyze=306) 33.4 % 34.1-44.9 MEAN CORPUSCULAR VOLUME (BEAKER) (test dexl=417) 79.1 fL 79.4-94.8 MEAN CORPUSCULAR HEMOGLOBIN (BEAKER) (test 23.9 pg 25.6-32.2 vzrp=086) MEAN CORPUSCULAR HEMOGLOBIN CONC (BEAKER) (test 30.2 GM/DL 32.2-35.5 udxq=760) RED CELL DISTRIBUTION WIDTH (BEAKER) (test 16.1 % 11.7-14.4 nity=406) PLATELET COUNT (BEAKER) (test nzym=535) 252 K/CU MM 150-450 MEAN PLATELET VOLUME (BEAKER) (test dsmk=080) 9.5 fL 9.4-12.3 NUCLEATED RED BLOOD CELLS (BEAKER) (test 0 /100 WBC 0-0 njol=704) NEUTROPHILS RELATIVE PERCENT (BEAKER) (test 49 % cntm=340) LYMPHOCYTES RELATIVE PERCENT (BEAKER) (test 38 % nsgm=393) MONOCYTES RELATIVE PERCENT (BEAKER) (test 6 % rcow=016) EOSINOPHILS RELATIVE PERCENT (BEAKER) (test 5 % jycc=365) BASOPHILS RELATIVE PERCENT (BEAKER) (test 1 % vwqj=266) NEUTROPHILS ABSOLUTE COUNT (BEAKER) (test 3.08 K/ L 1.56-6.13 xelf=870) LYMPHOCYTES ABSOLUTE COUNT (BEAKER) (test 2.42 K/ L 1.18-3.74 ldkf=184) MONOCYTES ABSOLUTE COUNT (BEAKER) (test 0.40 K/ L 0.24-0.36 ptgw=684) EOSINOPHILS ABSOLUTE COUNT (BEAKER) (test 0.33 K/ L 0.04-0.36 uqrr=887) BASOPHILS ABSOLUTE COUNT (BEAKER) (test 0.07 K/ L 0.01-0.08 ifek=290) IMMATURE GRANULOCYTES-RELATIVE PERCENT (BEAKER) 0 % 0-1 (test smha=9128) B-TYPE NATRIURETIC FACTOR (BNP)2017-09-02 13:47:00 Test Item Value Reference Range Comments B-TYPE NATRIURETIC PEPTIDE (BEAKER) (test 1942 pg/mL 0-100 jduo=371) BASIC METABOLIC [id number] 13:43:00 Test Item Value Reference Range Comments SODIUM (BEAKER) (test 134 meq/L 136-145 eyie=687) POTASSIUM (BEAKER) (test 5.2 meq/L 3.5-5.1 sykd=311) CHLORIDE (BEAKER) (test 101 meq/L 98-107 xoak=811) CO2 (BEAKER) (test 25 meq/L 22-29 otls=425) BLOOD UREA NITROGEN 55 mg/dL 7-21 (BEAKER) (test mcax=741) CREATININE (BEAKER) (test 2.09 mg/dL 0.57-1.25 wjqi=089) GLUCOSE RANDOM (BEAKER) 317 mg/dL 70-105 (test bnml=646) CALCIUM (BEAKER) (test 9.2 mg/dL 8.4-10.2 ktmv=282) EGFR (BEAKER) (test 24 mL/min/1.73 sq m ESTIMATED GFR IS NOT udvy=1655) ACCURATE CREATININE CLEARANCE IN PREDICTING GLOMERULAR FILTRATION RATE. ESTIMATED GFR IS NOT APPLICABLE FOR DIALYSIS PATIENTS. POCT-GLUCOSE [id number] 12:44:00 Test Item Value Reference Range Comments POC-GLUCOSE METER (BEAKER) 283 mg/dL 70-110 TESTED AT [facility] [address] [facility] (test zcko=1509) [facility] [address] CALCIUM, [id number] 07:03:00 Test Item Value Reference Range Comments CALCIUM IONIZED (BEAKER) (test sdcg=523) 1.02 mmol/L 1.12-1.27 PH, BLOOD (BEAKER) (test uuvf=0702) 7.43 [id number] 05:28:00 Test Item Value Reference Range Comments PHOSPHORUS (BEAKER) (test mkkx=038) 3.3 mg/dL 2.3-4.7 [id number] 05:28:00 Test Item Value Reference Range Comments MAGNESIUM (BEAKER) (test mukm=256) 1.5 mg/dL 1.6-2.6 BASIC METABOLIC [id number] 05:28:00 Test Item Value Reference Range Comments SODIUM (BEAKER) (test 135 meq/L 136-145 fokw=819) POTASSIUM (BEAKER) (test 3.9 meq/L 3.5-5.1 jbmi=810) CHLORIDE (BEAKER) (test 101 meq/L 98-107 vkwg=821) CO2 (BEAKER) (test 27 meq/L 22-29 ipih=498) BLOOD UREA NITROGEN 35 mg/dL 7-21 (BEAKER) (test tyio=099) CREATININE (BEAKER) (test 1.37 mg/dL 0.57-1.25 kdai=391) GLUCOSE RANDOM (BEAKER) 145 mg/dL 70-105 (test qsjo=642) CALCIUM (BEAKER) (test 8.3 mg/dL 8.4-10.2 jnwt=800) EGFR (BEAKER) (test 39 mL/min/1.73 sq m ESTIMATED GFR IS NOT hxed=0944) ACCURATE CREATININE CLEARANCE IN PREDICTING GLOMERULAR FILTRATION RATE. ESTIMATED GFR IS NOT APPLICABLE FOR DIALYSIS PATIENTS. CBC W/PLT COUNT & AUTO [id number] 05:06:00 Test Item Value Reference Range Comments WHITE BLOOD CELL COUNT (BEAKER) (test wonz=290) 9.3 K/ L 3.5-10.5 RED BLOOD CELL COUNT (BEAKER) (test qqjd=869) 3.64 M/ L 3.93-5.22 HEMOGLOBIN (BEAKER) (test ynjt=833) 8.7 GM/DL 11.2-15.7 HEMATOCRIT (BEAKER) (test iujb=050) 28.5 % 34.1-44.9 MEAN CORPUSCULAR VOLUME (BEAKER) (test maex=452) 78.3 fL 79.4-94.8 MEAN CORPUSCULAR HEMOGLOBIN (BEAKER) (test 23.9 pg 25.6-32.2 rgsb=588) MEAN CORPUSCULAR HEMOGLOBIN CONC (BEAKER) (test 30.5 GM/DL 32.2-35.5 etfs=209) RED CELL DISTRIBUTION WIDTH (BEAKER) (test 14.6 % 11.7-14.4 fksl=688) PLATELET COUNT (BEAKER) (test runu=485) 336 K/CU MM 150-450 MEAN PLATELET VOLUME (BEAKER) (test cjpz=555) 9.3 fL 9.4-12.3 NUCLEATED RED BLOOD CELLS (BEAKER) (test 0 /100 WBC 0-0 lxau=202) NEUTROPHILS RELATIVE PERCENT (BEAKER) (test 50 % edzm=775) LYMPHOCYTES RELATIVE PERCENT (BEAKER) (test 40 % pdql=705) MONOCYTES RELATIVE PERCENT (BEAKER) (test 6 % krxz=332) EOSINOPHILS RELATIVE PERCENT (BEAKER) (test 3 % esuy=383) BASOPHILS RELATIVE PERCENT (BEAKER) (test 1 % qfoa=290) NEUTROPHILS ABSOLUTE COUNT (BEAKER) (test 4.66 K/ L 1.56-6.13 ohmo=919) LYMPHOCYTES ABSOLUTE COUNT (BEAKER) (test 3.71 K/ L 1.18-3.74 wedf=146) MONOCYTES ABSOLUTE COUNT (BEAKER) (test 0.53 K/ L 0.24-0.36 vhrp=066) EOSINOPHILS ABSOLUTE COUNT (BEAKER) (test 0.31 K/ L 0.04-0.36 htip=354) BASOPHILS ABSOLUTE COUNT (BEAKER) (test 0.07 K/ L 0.01-0.08 noov=082) IMMATURE GRANULOCYTES-RELATIVE PERCENT (BEAKER) 1 % 0-1 (test fcda=6692) POCT-GLUCOSE [id number] 21:08:00 Test Item Value Reference Range Comments POC-GLUCOSE METER (BEAKER) 202 mg/dL 70-110 TESTED AT [address] (test tjhi=5595) [facility] [address] POCT-GLUCOSE [id number] 16:50:00 Test Item Value Reference Range Comments POC-GLUCOSE METER (BEAKER) 287 mg/dL 70-110 TESTED AT [address] (test eyym=4514) [facility] [address] POCT-GLUCOSE [id number] 12:21:00 Test Item Value Reference Range Comments POC-GLUCOSE METER (BEAKER) 213 mg/dL 70-110 TESTED AT [address] (test zjpf=4300) [facility] [address] POCT-GLUCOSE [id number] 08:28:00 Test Item Value Reference Range Comments POC-GLUCOSE METER (BEAKER) 178 mg/dL 70-110 TESTED AT [address] (test edwk=3199) [facility] [address] CALCIUM, [id number] 07:06:00 Test Item Value Reference Range Comments CALCIUM IONIZED (BEAKER) (test smwn=460) 0.99 mmol/L 1.12-1.27 PH, BLOOD (BEAKER) (test rlup=4087) 7.42 [id number] 05:37:00 Test Item Value Reference Range Comments PHOSPHORUS (BEAKER) (test gron=155) 3.5 mg/dL 2.3-4.7 [id number] 05:37:00 Test Item Value Reference Range Comments MAGNESIUM (BEAKER) (test fanr=213) 1.6 mg/dL 1.6-2.6 BASIC METABOLIC [id number] 05:37:00 Test Item Value Reference Range Comments SODIUM (BEAKER) (test 133 meq/L 136-145 kaxl=242) POTASSIUM (BEAKER) (test 3.8 meq/L 3.5-5.1 jtnp=680) CHLORIDE (BEAKER) (test 101 meq/L 98-107 uqrj=407) CO2 (BEAKER) (test 25 meq/L 22-29 jqmu=291) BLOOD UREA NITROGEN 39 mg/dL 7-21 (BEAKER) (test vddo=589) CREATININE (BEAKER) (test 1.42 mg/dL 0.57-1.25 vlxh=847) GLUCOSE RANDOM (BEAKER) 200 mg/dL 70-105 (test czvp=926) CALCIUM (BEAKER) (test 8.0 mg/dL 8.4-10.2 bdvr=994) EGFR (BEAKER) (test 37 mL/min/1.73 sq m ESTIMATED GFR IS NOT ztrs=3997) ACCURATE CREATININE CLEARANCE IN PREDICTING GLOMERULAR FILTRATION RATE. ESTIMATED GFR IS NOT APPLICABLE FOR DIALYSIS PATIENTS. CBC W/PLT COUNT & AUTO [id number] 05:07:00 Test Item Value Reference Range Comments WHITE BLOOD CELL COUNT (BEAKER) (test mxpi=878) 9.2 K/ L 3.5-10.5 RED BLOOD CELL COUNT (BEAKER) (test eipn=554) 3.69 M/ L 3.93-5.22 HEMOGLOBIN (BEAKER) (test csbd=227) 8.8 GM/DL 11.2-15.7 HEMATOCRIT (BEAKER) (test oviz=450) 28.8 % 34.1-44.9 MEAN CORPUSCULAR VOLUME (BEAKER) (test hyyl=051) 78.0 fL 79.4-94.8 MEAN CORPUSCULAR HEMOGLOBIN (BEAKER) (test 23.8 pg 25.6-32.2 peiu=087) MEAN CORPUSCULAR HEMOGLOBIN CONC (BEAKER) (test 30.6 GM/DL 32.2-35.5 ppxi=720) RED CELL DISTRIBUTION WIDTH (BEAKER) (test 14.6 % 11.7-14.4 dybg=721) PLATELET COUNT (BEAKER) (test qoag=434) 308 K/CU MM 150-450 MEAN PLATELET VOLUME (BEAKER) (test owen=454) 9.3 fL 9.4-12.3 NUCLEATED RED BLOOD CELLS (BEAKER) (test 0 /100 WBC 0-0 bqzk=715) NEUTROPHILS RELATIVE PERCENT (BEAKER) (test 61 % aasl=333) LYMPHOCYTES RELATIVE PERCENT (BEAKER) (test 30 % mfme=650) MONOCYTES RELATIVE PERCENT (BEAKER) (test 5 % rnfu=146) EOSINOPHILS RELATIVE PERCENT (BEAKER) (test 3 % btok=726) BASOPHILS RELATIVE PERCENT (BEAKER) (test 0 % uwob=836) NEUTROPHILS ABSOLUTE COUNT (BEAKER) (test 5.67 K/ L 1.56-6.13 gngu=338) LYMPHOCYTES ABSOLUTE COUNT (BEAKER) (test 2.72 K/ L 1.18-3.74 uwft=784) MONOCYTES ABSOLUTE COUNT (BEAKER) (test 0.48 K/ L 0.24-0.36 hwkf=626) EOSINOPHILS ABSOLUTE COUNT (BEAKER) (test 0.26 K/ L 0.04-0.36 gkxd=042) BASOPHILS ABSOLUTE COUNT (BEAKER) (test 0.04 K/ L 0.01-0.08 nqwu=629) IMMATURE GRANULOCYTES-RELATIVE PERCENT (BEAKER) 1 % 0-1 (test lkjx=2546) POCT-GLUCOSE [id number] 21:24:00 Test Item Value Reference Range Comments POC-GLUCOSE METER (BEAKER) 255 mg/dL 70-110 TESTED AT [address] (test qcoq=4039) [place] [id number] POCT-GLUCOSE [id number] 17:11:00 Test Item Value Reference Range Comments POC-GLUCOSE METER (BEAKER) 244 mg/dL 70-110 TESTED AT [address] (test nhah=2420) [facility] [address] POCT-GLUCOSE [id number] 11:54:00 Test Item Value Reference Range Comments POC-GLUCOSE METER (BEAKER) 209 mg/dL 70-110 TESTED AT [address] (test fvsh=0887) [place] [id number] POCT-GLUCOSE [id number] 08:15:00 Test Item Value Reference Range Comments POC-GLUCOSE METER (BEAKER) 132 mg/dL 70-110 TESTED AT [address] (test ibns=6847) [facility] [address] RAD, CHEST, 1 VIEW, NON [id number] 07:44:00Reason for exam:->edemaShould this be performed at the bedside?->YesFINAL REPORT Chest one view AP 08/07/2017 7:44 AM CLINICAL INDICATION: edema COMPARISON: 2017 IMPRESSION: Cardiomediastinal contours are stable. There is mild pulmonary edema,asymmetric to the right. There are trace bilateral pleural effusions, with bibasilar linear atelectasis. Sternotomy wires remain midline. Signed: Eder Cespedesort Verified Date/Time: 08/07/2017 07:44:22 Reading Location: [facility] Reading Room [id number] 05:30:00 Test Item Value Reference Range Comments FERRITIN (BEAKER) (test wvzf=744) 87 ng/mL 5-275 CBC W/PLT COUNT & AUTO [id number] 05:21:00 Test Item Value Reference Range Comments WHITE BLOOD CELL COUNT (BEAKER) (test gghi=165) 12.4 K/ L 3.5-10.5 RED BLOOD CELL COUNT (BEAKER) (test aiyk=037) 3.78 M/ L 3.93-5.22 HEMOGLOBIN (BEAKER) (test geqw=374) 9.0 GM/DL 11.2-15.7 HEMATOCRIT (BEAKER) (test iagw=279) 29.3 % 34.1-44.9 MEAN CORPUSCULAR VOLUME (BEAKER) (test kenh=700) 77.5 fL 79.4-94.8 MEAN CORPUSCULAR HEMOGLOBIN (BEAKER) (test 23.8 pg 25.6-32.2 ncyt=789) MEAN CORPUSCULAR HEMOGLOBIN CONC (BEAKER) (test 30.7 GM/DL 32.2-35.5 ycmy=658) RED CELL DISTRIBUTION WIDTH (BEAKER) (test 14.7 % 11.7-14.4 sbtm=290) PLATELET COUNT (BEAKER) (test qvgb=502) 316 K/CU MM 150-450 MEAN PLATELET VOLUME (BEAKER) (test vtmj=135) 9.6 fL 9.4-12.3 NUCLEATED RED BLOOD CELLS (BEAKER) (test 0 /100 WBC 0-0 mboj=623) NEUTROPHILS RELATIVE PERCENT (BEAKER) (test 72 % kzhi=816) LYMPHOCYTES RELATIVE PERCENT (BEAKER) (test 20 % lhaw=170) MONOCYTES RELATIVE PERCENT (BEAKER) (test 5 % ftja=946) EOSINOPHILS RELATIVE PERCENT (BEAKER) (test 2 % fwhj=263) BASOPHILS RELATIVE PERCENT (BEAKER) (test 1 % vrhg=635) NEUTROPHILS ABSOLUTE COUNT (BEAKER) (test 8.93 K/ L 1.56-6.13 edua=495) LYMPHOCYTES ABSOLUTE COUNT (BEAKER) (test 2.51 K/ L 1.18-3.74 knkt=832) MONOCYTES ABSOLUTE COUNT (BEAKER) (test 0.58 K/ L 0.24-0.36 kjnn=052) EOSINOPHILS ABSOLUTE COUNT (BEAKER) (test 0.23 K/ L 0.04-0.36 yfup=225) BASOPHILS ABSOLUTE COUNT (BEAKER) (test 0.07 K/ L 0.01-0.08 kqos=777) IMMATURE GRANULOCYTES-RELATIVE PERCENT (BEAKER) 1 % 0-1 (test ygnd=5722) IRON, TIBC, % SAT. (WITHOUT FERRITIN)2017-08-07 05:16:00 Test Item Value Reference Range Comments IRON (BEAKER) (test aqxs=104) 21 ug/dL 40-160 TOTAL IRON BINDING CAPACITY (BEAKER) (test 184 ug/dL 250-450 vhzp=593) IRON % SATURATION (2) (BEAKER) (test tbrq=7276) 11 % 20-55 [id number] 05:11:00 Test Item Value Reference Range Comments PHOSPHORUS (BEAKER) (test jvqq=698) 3.6 mg/dL 2.3-4.7 [id number] 05:11:00 Test Item Value Reference Range Comments MAGNESIUM (BEAKER) (test htan=348) 2.0 mg/dL 1.6-2.6 BASIC METABOLIC [id number] 05:11:00 Test Item Value Reference Range Comments SODIUM (BEAKER) (test 134 meq/L 136-145 nsdk=325) POTASSIUM (BEAKER) (test 3.9 meq/L 3.5-5.1 erht=228) CHLORIDE (BEAKER) (test 102 meq/L 98-107 idnt=750) CO2 (BEAKER) (test 23 meq/L 22-29 wcqq=094) BLOOD UREA NITROGEN 41 mg/dL 7-21 (BEAKER) (test uyty=008) CREATININE (BEAKER) (test 1.63 mg/dL 0.57-1.25 kens=423) GLUCOSE RANDOM (BEAKER) 124 mg/dL 70-105 (test knem=193) CALCIUM (BEAKER) (test 8.3 mg/dL 8.4-10.2 vewh=312) EGFR (BEAKER) (test 32 mL/min/1.73 sq m ESTIMATED GFR IS NOT fwtp=0851) ACCURATE CREATININE CLEARANCE IN PREDICTING GLOMERULAR FILTRATION RATE. ESTIMATED GFR IS NOT APPLICABLE FOR DIALYSIS PATIENTS. B-TYPE NATRIURETIC FACTOR (BNP)2017-08-07 05:05:00 Test Item Value Reference Range Comments B-TYPE NATRIURETIC PEPTIDE (BEAKER) (test 1561 pg/mL 0-100 udms=512) CALCIUM, [id number] 04:58:00 Test Item Value Reference Range Comments CALCIUM IONIZED (BEAKER) (test ivjp=066) 1.04 mmol/L 1.12-1.27 PH, BLOOD (BEAKER) (test mfcd=9793) 7.41 RETICULOCYTE [id number] 04:51:00 Test Item Value Reference Range Comments RETICULOCYTE COUNT PCT (BEAKER) (test zhft=170) 1.2 % 0.5-1.7 POCT-GLUCOSE [id number] 20:49:00 Test Item Value Reference Range Comments POC-GLUCOSE METER (BEAKER) 202 mg/dL 70-110 TESTED AT [facility] [address] [facility] (test irjr=0149) [facility] [address] CREATININE, RANDOM [id number] 18:38:00 Test Item Value Reference Range Comments CREATININE URINE (BEAKER) (test flfv=164) 56.3 mg/dL Reference Range: No NormalsPROTEIN, RANDOM [id number] 18:38:00 Test Item Value Reference Range Comments PROTEIN, URINE (BEAKER) (test omry=1959) 189 mg/dL 0-14 URINALYSIS W/ [id number] 18:34:00 Test Item Value Reference Range Comments COLOR (BEAKER) (test jxpf=382) Light Yellow CLARITY (BEAKER) (test wcbn=377) Hazy SPECIFIC GRAVITY UA (BEAKER) (test yvfh=180) 1.008 1.001-1.035 PH UA (BEAKER) (test xgxz=276) 5.5 5.0-8.0 PROTEIN UA (BEAKER) (test hcgi=223) 100 mg/dL Negative GLUCOSE UA (BEAKER) (test ldaq=091) 30 mg/dL Negative KETONES UA (BEAKER) (test ifcs=345) Negative Negative BILIRUBIN UA (BEAKER) (test hkho=712) Negative Negative BLOOD UA (BEAKER) (test qclx=247) Negative Negative NITRITE UA (BEAKER) (test axtv=330) Negative Negative LEUKOCYTE ESTERASE UA (BEAKER) (test bobn=059) Negative Negative UROBILINOGEN UA (BEAKER) (test dcjf=020) 0.2 mg/dL 0.2-1.0 RBC UA (BEAKER) (test bfhj=929) < /HPF WBC UA (BEAKER) (test lwuw=278) 2 /HPF BACTERIA (BEAKER) (test ffiy=110) Rare MUCUS (BEAKER) (test ejos=6233) Rare SQUAMOUS EPITHELIAL (BEAKER) (test ewvq=144) 8 /HPF SOURCE(BEAKER) (test fzzu=8287) Urine, Voided POCT-GLUCOSE [id number] 17:38:00 Test Item Value Reference Range Comments POC-GLUCOSE METER (BEAKER) 143 mg/dL 70-110 TESTED AT [address] (test dunf=3107) [place] [address] POCT-GLUCOSE [id number] 12:30:00 Test Item Value Reference Range Comments POC-GLUCOSE METER (BEAKER) 218 mg/dL 70-110 TESTED AT [address] (test mtli=7489) [place] [address] POCT-GLUCOSE [id number] 08:00:00 Test Item Value Reference Range Comments POC-GLUCOSE METER (BEAKER) 134 mg/dL 70-110 TESTED AT [address] (test fxfd=1734) [place] [address] CBC W/PLT COUNT & AUTO [id number] 04:23:00 Test Item Value Reference Range Comments WHITE BLOOD CELL COUNT (BEAKER) (test qicd=645) 13.9 K/ L 3.5-10.5 RED BLOOD CELL COUNT (BEAKER) (test gnyf=388) 3.23 M/ L 3.93-5.22 HEMOGLOBIN (BEAKER) (test tisb=093) 7.6 GM/DL 11.2-15.7 HEMATOCRIT (BEAKER) (test iles=680) 25.3 % 34.1-44.9 MEAN CORPUSCULAR VOLUME (BEAKER) (test dibl=224) 78.3 fL 79.4-94.8 MEAN CORPUSCULAR HEMOGLOBIN (BEAKER) (test 23.5 pg 25.6-32.2 flie=137) MEAN CORPUSCULAR HEMOGLOBIN CONC (BEAKER) (test 30.0 GM/DL 32.2-35.5 szoi=359) RED CELL DISTRIBUTION WIDTH (BEAKER) (test 14.8 % 11.7-14.4 vhjf=060) PLATELET COUNT (BEAKER) (test hptq=474) 284 K/CU MM 150-450 MEAN PLATELET VOLUME (BEAKER) (test wyjp=883) 9.8 fL 9.4-12.3 NUCLEATED RED BLOOD CELLS (BEAKER) (test 0 /100 WBC 0-0 ntqr=909) NEUTROPHILS RELATIVE PERCENT (BEAKER) (test 77 % buvy=749) LYMPHOCYTES RELATIVE PERCENT (BEAKER) (test 16 % qliq=177) MONOCYTES RELATIVE PERCENT (BEAKER) (test 4 % lgzs=701) EOSINOPHILS RELATIVE PERCENT (BEAKER) (test 2 % vtms=173) BASOPHILS RELATIVE PERCENT (BEAKER) (test 1 % mzky=514) NEUTROPHILS ABSOLUTE COUNT (BEAKER) (test 10.70 K/ L 1.56-6.13 ysfg=599) LYMPHOCYTES ABSOLUTE COUNT (BEAKER) (test 2.17 K/ L 1.18-3.74 qckl=425) MONOCYTES ABSOLUTE COUNT (BEAKER) (test 0.57 K/ L 0.24-0.36 umje=749) EOSINOPHILS ABSOLUTE COUNT (BEAKER) (test 0.30 K/ L 0.04-0.36 rpxc=557) BASOPHILS ABSOLUTE COUNT (BEAKER) (test 0.08 K/ L 0.01-0.08 sdfa=098) IMMATURE GRANULOCYTES-RELATIVE PERCENT (BEAKER) 1 % 0-1 (test ntjp=8617) BASIC METABOLIC [id number] 04:13:00 Test Item Value Reference Range Comments SODIUM (BEAKER) (test 134 meq/L 136-145 jhxj=300) POTASSIUM (BEAKER) (test 4.6 meq/L 3.5-5.1 msxn=572) CHLORIDE (BEAKER) (test 103 meq/L 98-107 kjav=384) CO2 (BEAKER) (test 23 meq/L 22-29 fthy=429) BLOOD UREA NITROGEN 43 mg/dL 7-21 (BEAKER) (test usqv=920) CREATININE (BEAKER) (test 1.79 mg/dL 0.57-1.25 xzid=483) GLUCOSE RANDOM (BEAKER) 123 mg/dL 70-105 (test hhcz=687) CALCIUM (BEAKER) (test 8.1 mg/dL 8.4-10.2 peai=046) EGFR (BEAKER) (test 29 mL/min/1.73 sq m ESTIMATED GFR IS NOT moxv=3861) ACCURATE CREATININE CLEARANCE IN PREDICTING GLOMERULAR FILTRATION RATE. ESTIMATED GFR IS NOT APPLICABLE FOR DIALYSIS PATIENTS. [id number] 04:10:00 Test Item Value Reference Range Comments PHOSPHORUS (BEAKER) (test mtfl=982) 4.9 mg/dL 2.3-4.7 [id number] 04:10:00 Test Item Value Reference Range Comments MAGNESIUM (BEAKER) (test cfmp=779) 1.4 mg/dL 1.6-2.6 [id number] 04:08:00 Test Item Value Reference Range Comments FIBRINOGEN LEVEL (BEAKER) (test opdz=644) 548 mg/dl 225-434 [id number] 04:08:00 Test Item Value Reference Range Comments PARTIAL THROMBOPLASTIN TIME (BEAKER) (test 37.7 seconds 22.5-36.0 huga=073) PROTHROMBIN [id number] 04:07:00 Test Item Value Reference Range Comments PROTIME (BEAKER) (test oxxm=496) 16.2 seconds 11.7-14.7 INR (BEAKER) (test wgvz=480) 1.3 <=5.9 RECOMMENDED COUMADIN/WARFARIN INR THERAPY RANGESSTANDARD DOSE: 2.0 - 3.0 Includes: PROPHYLAXIS forvenous thrombosis, systemic embolization; TREATMENT for venous thrombosis and/or pulmonary embolus.HIGH RISK: Target INR is 2.5-3.5 for patients with mechanical heart valves.[id number] 16:59:00 Test Item Value Reference Range Comments ACTIVATED CLOTTING TIME 219 sec TESTED AT [facility] [address] (BEAKER) (test enry=797) [facility] [address] BASIC METABOLIC [id number] 14:25:00 Test Item Value Reference Range Comments SODIUM (BEAKER) (test 134 meq/L 136-145 nhxj=007) POTASSIUM (BEAKER) (test 4.4 meq/L 3.5-5.1 rplt=448) CHLORIDE (BEAKER) (test 103 meq/L 98-107 zzjy=463) CO2 (BEAKER) (test 22 meq/L 22-29 cchv=463) BLOOD UREA NITROGEN 46 mg/dL 7-21 (BEAKER) (test niev=616) CREATININE (BEAKER) (test 2.16 mg/dL 0.57-1.25 xrpm=050) GLUCOSE RANDOM (BEAKER) 160 mg/dL 70-105 (test mdks=276) CALCIUM (BEAKER) (test 7.8 mg/dL 8.4-10.2 kgtx=825) EGFR (BEAKER) (test 23 mL/min/1.73 sq m ESTIMATED GFR IS NOT haqg=9269) ACCURATE CREATININE CLEARANCE IN PREDICTING GLOMERULAR FILTRATION RATE. ESTIMATED GFR IS NOT APPLICABLE FOR DIALYSIS PATIENTS. POCT-GLUCOSE [id number] 13:21:00 Test Item Value Reference Range Comments POC-GLUCOSE METER (BEAKER) 170 mg/dL 70-110 TESTED AT [facility] [address] [place] [address] (test mqjk=2970) [facility] [address] POTASSIUM-STAT [id number] 13:20:00 Test Item Value Reference Range Comments POTASSIUM (BEAKER) (test vrww=836) 4.2 meq/L 3.6-5.5 SODIUM NA-STAT [id number] 13:20:00 Test Item Value Reference Range Comments SODIUM (BEAKER) (test glmz=199) 133 meq/L 135-148 HGB/HCT (H&H) - STAT [id number] 12:34:00 Test Item Value Reference Range Comments HEMOGLOBIN (BEAKER) (test cjnx=503) 10.8 g/dL 12.0-15.0 HEMATOCRIT (BEAKER) (test xnjq=731) 32.0 % 36.0-45.0 POTASSIUM-STAT [id number] 08:15:00 Test Item Value Reference Range Comments POTASSIUM (BEAKER) (test ghoe=498) 4.1 meq/L 3.6-5.5 BLOOD GAS, [id number] 08:15:00 Test Item Value Reference Range Comments PH ARTERIAL (BEAKER) (test nbtq=903) 7.36 7.35-7.45 PCO2 ARTERIAL (BEAKER) (test umaj=523) 47 mmHg 35-45 PO2 ARTERIAL (BEAKER) (test vsqz=525) 213 mmHg 80-90 O2 SATURATION ARTERIAL (BEAKER) (test izmy=580) 99.4 % 96.0-97.0 HCO3 ARTERIAL (BEAKER) (test fewq=105) 26 mmol/L 21-29 BASE EXCESS ARTERIAL (BEAKER) (test kuvk=911) 0.3 mmol/L -2.0-3.0 PATIENT TEMPERATURE (BEAKER) (test hwxc=5831) 37.2 C FIO2 (BEAKER) (test kkhd=7682) 70.0 % SODIUM NA-STAT [id number] 08:15:00 Test Item Value Reference Range Comments SODIUM (BEAKER) (test ywdr=557) 130 meq/L 135-148 GLUCOSE-STAT [id number] 08:15:00 Test Item Value Reference Range Comments GLUCOSE RANDOM (BEAKER) (test hvti=252) 172 mg/dL 70-110 HGB/HCT (H&H) - STAT [id number] 08:15:00 Test Item Value Reference Range Comments HEMOGLOBIN (BEAKER) (test srnr=759) 8.8 g/dL 12.0-15.0 HEMATOCRIT (BEAKER) (test qgac=262) 26.0 % 36.0-45.0 BASIC METABOLIC [id number] 07:37:00 Test Item Value Reference Range Comments SODIUM (BEAKER) (test 135 meq/L 136-145 swgh=376) POTASSIUM (BEAKER) (test 4.4 meq/L 3.5-5.1 gcol=897) CHLORIDE (BEAKER) (test 100 meq/L 98-107 ebsf=058) CO2 (BEAKER) (test 23 meq/L 22-29 trkd=321) BLOOD UREA NITROGEN 46 mg/dL 7-21 (BEAKER) (test fuaj=272) CREATININE (BEAKER) (test 1.98 mg/dL 0.57-1.25 bddy=315) GLUCOSE RANDOM (BEAKER) 188 mg/dL 70-105 (test uenj=294) CALCIUM (BEAKER) (test 8.9 mg/dL 8.4-10.2 alad=734) EGFR (BEAKER) (test 26 mL/min/1.73 sq m ESTIMATED GFR IS NOT iutv=6237) ACCURATE CREATININE CLEARANCE IN PREDICTING GLOMERULAR FILTRATION RATE. ESTIMATED GFR IS NOT APPLICABLE FOR DIALYSIS PATIENTS. CBC W/PLT COUNT & AUTO [id number] 07:20:00 Test Item Value Reference Range Comments WHITE BLOOD CELL COUNT (BEAKER) (test iwge=691) 20.2 K/ L 3.5-10.5 RED BLOOD CELL COUNT (BEAKER) (test oanj=799) 3.86 M/ L 3.93-5.22 HEMOGLOBIN (BEAKER) (test nnsu=835) 9.1 GM/DL 11.2-15.7 HEMATOCRIT (BEAKER) (test yedf=321) 29.4 % 34.1-44.9 MEAN CORPUSCULAR VOLUME (BEAKER) (test maxr=493) 76.2 fL 79.4-94.8 MEAN CORPUSCULAR HEMOGLOBIN (BEAKER) (test 23.6 pg 25.6-32.2 bfvm=759) MEAN CORPUSCULAR HEMOGLOBIN CONC (BEAKER) (test 31.0 GM/DL 32.2-35.5 xocn=220) RED CELL DISTRIBUTION WIDTH (BEAKER) (test 14.9 % 11.7-14.4 ngmp=479) PLATELET COUNT (BEAKER) (test eeyu=720) 343 K/CU MM 150-450 MEAN PLATELET VOLUME (BEAKER) (test iebr=032) 9.5 fL 9.4-12.3 NUCLEATED RED BLOOD CELLS (BEAKER) (test 0 /100 WBC 0-0 poap=854) NEUTROPHILS RELATIVE PERCENT (BEAKER) (test 78 % ksti=575) LYMPHOCYTES RELATIVE PERCENT (BEAKER) (test 15 % ypsq=971) MONOCYTES RELATIVE PERCENT (BEAKER) (test 5 % wrbx=543) EOSINOPHILS RELATIVE PERCENT (BEAKER) (test 1 % mgen=499) BASOPHILS RELATIVE PERCENT (BEAKER) (test 1 % xktu=036) NEUTROPHILS ABSOLUTE COUNT (BEAKER) (test 15.70 K/ L 1.56-6.13 jobk=403) LYMPHOCYTES ABSOLUTE COUNT (BEAKER) (test 2.99 K/ L 1.18-3.74 lnlu=102) MONOCYTES ABSOLUTE COUNT (BEAKER) (test 0.93 K/ L 0.24-0.36 covu=924) EOSINOPHILS ABSOLUTE COUNT (BEAKER) (test 0.20 K/ L 0.04-0.36 mvzf=841) BASOPHILS ABSOLUTE COUNT (BEAKER) (test 0.12 K/ L 0.01-0.08 axrs=554) IMMATURE GRANULOCYTES-RELATIVE PERCENT (BEAKER) 1 % 0-1 (test fedi=8392) POCT-GLUCOSE [id number] 07:03:00 Test Item Value Reference Range Comments POC-GLUCOSE METER (BEAKER) 186 mg/dL 70-110 TESTED AT [address] (test xvtb=7278) [place] [address] B-TYPE NATRIURETIC FACTOR (BNP)2017-06-10 12:44:00 Test Item Value Reference Range Comments B-TYPE NATRIURETIC PEPTIDE (BEAKER) (test 1264 pg/mL 0-100 okkl=942) [id number] 12:36:00 Test Item Value Reference Range Comments MAGNESIUM (BEAKER) (test tpvg=924) 1.6 mg/dL 1.6-2.6 BASIC METABOLIC [id number] 12:36:00 Test Item Value Reference Range Comments SODIUM (BEAKER) (test 137 meq/L 136-145 vktc=627) POTASSIUM (BEAKER) (test 5.4 meq/L 3.5-5.1 zhaf=693) CHLORIDE (BEAKER) (test 108 meq/L 98-107 alhp=095) CO2 (BEAKER) (test 21 meq/L 22-29 kfzb=147) BLOOD UREA NITROGEN 39 mg/dL 7-21 (BEAKER) (test kqkd=737) CREATININE (BEAKER) (test 1.49 mg/dL 0.57-1.25 pysz=386) GLUCOSE RANDOM (BEAKER) 219 mg/dL 70-105 (test gohy=824) CALCIUM (BEAKER) (test 8.5 mg/dL 8.4-10.2 siww=978) EGFR (BEAKER) (test 35 mL/min/1.73 sq m ESTIMATED GFR IS NOT aoou=0896) ACCURATE CREATININE CLEARANCE IN PREDICTING GLOMERULAR FILTRATION RATE. ESTIMATED GFR IS NOT APPLICABLE FOR DIALYSIS PATIENTS. POCT-GLUCOSE [id number] 12:04:00 Test Item Value Reference Range Comments POC-GLUCOSE METER (BEAKER) 274 mg/dL 70-110 TESTED AT [address] (test neuc=7099) [place] [id number] POCT-GLUCOSE [id number] 07:21:00 Test Item Value Reference Range Comments POC-GLUCOSE METER (BEAKER) 137 mg/dL 70-110 TESTED AT [facility] [address] (test vueg=1984) [facility] [address] BASIC METABOLIC [id number] 05:10:00 Test Item Value Reference Range Comments SODIUM (BEAKER) (test 137 meq/L 136-145 odem=610) POTASSIUM (BEAKER) (test 4.1 meq/L 3.5-5.1 sybl=219) CHLORIDE (BEAKER) (test 106 meq/L 98-107 mihj=416) CO2 (BEAKER) (test 24 meq/L 22-29 zjyh=929) BLOOD UREA NITROGEN 42 mg/dL 7-21 (BEAKER) (test kzjq=554) CREATININE (BEAKER) (test 1.64 mg/dL 0.57-1.25 lhoz=927) GLUCOSE RANDOM (BEAKER) 162 mg/dL 70-105 (test spei=831) CALCIUM (BEAKER) (test 8.1 mg/dL 8.4-10.2 njef=780) EGFR (BEAKER) (test 32 mL/min/1.73 sq m ESTIMATED GFR IS NOT hzvn=4648) ACCURATE CREATININE CLEARANCE IN PREDICTING GLOMERULAR FILTRATION RATE. ESTIMATED GFR IS NOT APPLICABLE FOR DIALYSIS PATIENTS. CBC (HEMOGRAM ONLY)2017-06-01 04:30:00 Test Item Value Reference Range Comments WHITE BLOOD CELL COUNT (BEAKER) (test noog=925) 6.4 K/ L 3.5-10.5 RED BLOOD CELL COUNT (BEAKER) (test basa=332) 3.38 M/ L 3.93-5.22 HEMOGLOBIN (BEAKER) (test sxpj=354) 8.7 GM/DL 11.2-15.7 HEMATOCRIT (BEAKER) (test vdlq=781) 28.2 % 34.1-44.9 MEAN CORPUSCULAR VOLUME (BEAKER) (test dxxa=991) 83.4 fL 79.4-94.8 MEAN CORPUSCULAR HEMOGLOBIN (BEAKER) (test 25.7 pg 25.6-32.2 exsb=977) MEAN CORPUSCULAR HEMOGLOBIN CONC (BEAKER) (test 30.9 GM/DL 32.2-35.5 bmsq=150) RED CELL DISTRIBUTION WIDTH (BEAKER) (test 15.2 % 11.7-14.4 tddf=769) PLATELET COUNT (BEAKER) (test ltoc=497) 320 K/CU MM 150-450 MEAN PLATELET VOLUME (BEAKER) (test rzzy=748) 9.5 fL 9.4-12.3 NUCLEATED RED BLOOD CELLS (BEAKER) (test 0 /100 WBC 0-0 uiqn=818) POCT-GLUCOSE [id number] 21:23:00 Test Item Value Reference Range Comments POC-GLUCOSE METER (BEAKER) 240 mg/dL 70-110 TESTED AT [address] (test gaiu=8352) [place] [id number] POCT-GLUCOSE [id number] 16:42:00 Test Item Value Reference Range Comments POC-GLUCOSE METER (BEAKER) 234 mg/dL 70-110 TESTED AT [address] (test umhb=5525) [place] [id number] POCT-GLUCOSE [id number] 13:22:00 Test Item Value Reference Range Comments POC-GLUCOSE METER (BEAKER) 166 mg/dL 70-110 TESTED AT [address] (test lfhq=1609) [facility] [address] RAD, CHEST, 1 VIEW, NON [id number] 09:43:00Reason for exam:->s/p ACBShould this be performed [...] B1 [id number] Ortho Consult Reading Room POCT-GLUCOSE [id number] 06:57:00 Test Item Value Reference Range Comments POC-GLUCOSE METER (BEAKER) 136 mg/dL 70-110 TESTED AT [facility] [address] (test lxlf=4937) [facility] [address] CALCIUM, [id number] 06:41:00 Test Item Value Reference Range Comments CALCIUM IONIZED (BEAKER) (test tyos=542) 1.10 mmol/L 1.12-1.27 PH, BLOOD (BEAKER) (test emua=9378) 7.42 [id number] 06:17:00 Test Item Value Reference Range Comments PHOSPHORUS (BEAKER) (test jvbx=896) 3.3 mg/dL 2.3-4.7 [id number] 06:17:00 Test Item Value Reference Range Comments MAGNESIUM (BEAKER) (test xnmf=680) 1.8 mg/dL 1.6-2.6 BASIC METABOLIC [id number] 06:17:00 Test Item Value Reference Range Comments SODIUM (BEAKER) (test 131 meq/L 136-145 bmkf=537) POTASSIUM (BEAKER) (test 4.5 meq/L 3.5-5.1 bluw=974) CHLORIDE (BEAKER) (test 103 meq/L 98-107 hpof=019) CO2 (BEAKER) (test 21 meq/L 22-29 uvto=972) BLOOD UREA NITROGEN 43 mg/dL 7-21 (BEAKER) (test rbiy=161) CREATININE (BEAKER) (test 1.74 mg/dL 0.57-1.25 whrg=373) GLUCOSE RANDOM (BEAKER) 126 mg/dL 70-105 (test ukho=381) CALCIUM (BEAKER) (test 8.1 mg/dL 8.4-10.2 flnb=759) EGFR (BEAKER) (test 30 mL/min/1.73 sq m ESTIMATED GFR IS NOT idro=2122) ACCURATE CREATININE CLEARANCE IN PREDICTING GLOMERULAR FILTRATION RATE. ESTIMATED GFR IS NOT APPLICABLE FOR DIALYSIS PATIENTS. CBC W/PLT COUNT & AUTO [id number] 05:07:00 Test Item Value Reference Range Comments WHITE BLOOD CELL COUNT (BEAKER) (test htvx=600) 5.9 K/ L 3.5-10.5 RED BLOOD CELL COUNT (BEAKER) (test zwiw=658) 3.16 M/ L 3.93-5.22 HEMOGLOBIN (BEAKER) (test uqai=907) 8.2 GM/DL 11.2-15.7 HEMATOCRIT (BEAKER) (test rehb=895) 26.6 % 34.1-44.9 MEAN CORPUSCULAR VOLUME (BEAKER) (test thuv=944) 84.2 fL 79.4-94.8 MEAN CORPUSCULAR HEMOGLOBIN (BEAKER) (test 25.9 pg 25.6-32.2 itzz=853) MEAN CORPUSCULAR HEMOGLOBIN CONC (BEAKER) (test 30.8 GM/DL 32.2-35.5 wcwk=688) RED CELL DISTRIBUTION WIDTH (BEAKER) (test 15.1 % 11.7-14.4 zkca=878) PLATELET COUNT (BEAKER) (test opsu=238) 320 K/CU MM 150-450 MEAN PLATELET VOLUME (BEAKER) (test fjdd=557) 9.6 fL 9.4-12.3 NUCLEATED RED BLOOD CELLS (BEAKER) (test 0 /100 WBC 0-0 wxfw=673) NEUTROPHILS RELATIVE PERCENT (BEAKER) (test 65 % dwhe=416) LYMPHOCYTES RELATIVE PERCENT (BEAKER) (test 24 % mhuf=562) MONOCYTES RELATIVE PERCENT (BEAKER) (test 8 % lwvq=577) EOSINOPHILS RELATIVE PERCENT (BEAKER) (test 2 % nnnh=632) BASOPHILS RELATIVE PERCENT (BEAKER) (test 1 % qout=790) NEUTROPHILS ABSOLUTE COUNT (BEAKER) (test 3.84 K/ L 1.56-6.13 btls=659) LYMPHOCYTES ABSOLUTE COUNT (BEAKER) (test 1.41 K/ L 1.18-3.74 jzfe=237) MONOCYTES ABSOLUTE COUNT (BEAKER) (test 0.47 K/ L 0.24-0.36 pkbp=437) EOSINOPHILS ABSOLUTE COUNT (BEAKER) (test 0.11 K/ L 0.04-0.36 rqwp=296) BASOPHILS ABSOLUTE COUNT (BEAKER) (test 0.05 K/ L 0.01-0.08 kbbw=276) IMMATURE GRANULOCYTES-RELATIVE PERCENT (BEAKER) 1 % 0-1 (test nzzs=2383) POCT-GLUCOSE [id number] 20:56:00 Test Item Value Reference Range Comments POC-GLUCOSE METER (BEAKER) 196 mg/dL 70-110 TESTED AT [facility] [address] [facility] (test jbui=6866) [facility] [address] POCT-GLUCOSE [id number] 16:42:00 Test Item Value Reference Range Comments POC-GLUCOSE METER (BEAKER) 196 mg/dL 70-110 TESTED AT [facility] [address] [facility] (test vcaz=6833) [facility] [address] POCT-GLUCOSE [id number] 11:45:00 Test Item Value Reference Range Comments POC-GLUCOSE METER (BEAKER) 215 mg/dL 70-110 TESTED AT [place] [id number] [facility] (test zjqw=8979) [facility] [address] RAD, CHEST, 1 VIEW, NON [id number] 11:15:00Reason for exam:->s/p ACBShould this be performed at the bedside?->YesFINAL REPORT Chest one view compared to May 28, 2017 Discussion: Airspace opacities are seen in both lower lung regions, probably atelectasis. Correlate clinically for infection. I could not exclude small effusions. No pneumothorax. Upper lungs clear. Signed: Jeannette Nava Verified Date/Time: 2017 11:15:07 Reading Location: [facility] Radiology Reading Room CALCIUM, [id number] 09:21:00 Test Item Value Reference Range Comments CALCIUM IONIZED (BEAKER) (test qedc=787) 1.11 mmol/L 1.12-1.27 PH, BLOOD (BEAKER) (test lxbw=5519) 7.36 BASIC METABOLIC [id number] 07:37:00 Test Item Value Reference Range Comments SODIUM (BEAKER) (test 135 meq/L 136-145 ibmo=754) POTASSIUM (BEAKER) (test 4.9 meq/L 3.5-5.1 varz=381) CHLORIDE (BEAKER) (test 105 meq/L 98-107 ujmp=954) CO2 (BEAKER) (test 25 meq/L 22-29 muym=620) BLOOD UREA NITROGEN 44 mg/dL 7-21 (BEAKER) (test npgv=749) CREATININE (BEAKER) (test 1.76 mg/dL 0.57-1.25 axkk=622) GLUCOSE RANDOM (BEAKER) 136 mg/dL 70-105 (test yuna=958) CALCIUM (BEAKER) (test 8.2 mg/dL 8.4-10.2 pmil=592) EGFR (BEAKER) (test 29 mL/min/1.73 sq m ESTIMATED GFR IS NOT lprq=5539) ACCURATE CREATININE CLEARANCE IN PREDICTING GLOMERULAR FILTRATION RATE. ESTIMATED GFR IS NOT APPLICABLE FOR DIALYSIS PATIENTS. [id number] 07:28:00 Test Item Value Reference Range Comments PHOSPHORUS (BEAKER) (test kilj=268) 3.8 mg/dL 2.3-4.7 [id number] 07:28:00 Test Item Value Reference Range Comments MAGNESIUM (BEAKER) (test fnhz=491) 1.9 mg/dL 1.6-2.6 CBC W/PLT COUNT & AUTO [id number] 07:26:00 Test Item Value Reference Range Comments WHITE BLOOD CELL COUNT (BEAKER) (test amcb=580) 6.3 K/ L 3.5-10.5 RED BLOOD CELL COUNT (BEAKER) (test tyqc=936) 3.32 M/ L 3.93-5.22 HEMOGLOBIN (BEAKER) (test ieac=645) 8.5 GM/DL 11.2-15.7 HEMATOCRIT (BEAKER) (test kvmg=136) 27.8 % 34.1-44.9 MEAN CORPUSCULAR VOLUME (BEAKER) (test gwsx=581) 83.7 fL 79.4-94.8 MEAN CORPUSCULAR HEMOGLOBIN (BEAKER) (test 25.6 pg 25.6-32.2 dtkf=515) MEAN CORPUSCULAR HEMOGLOBIN CONC (BEAKER) (test 30.6 GM/DL 32.2-35.5 batp=576) RED CELL DISTRIBUTION WIDTH (BEAKER) (test 15.0 % 11.7-14.4 tozv=271) PLATELET COUNT (BEAKER) (test bojc=305) 336 K/CU MM 150-450 MEAN PLATELET VOLUME (BEAKER) (test bxtd=209) 9.8 fL 9.4-12.3 NUCLEATED RED BLOOD CELLS (BEAKER) (test 0 /100 WBC 0-0 qxlb=215) NEUTROPHILS RELATIVE PERCENT (BEAKER) (test 65 % vuym=375) LYMPHOCYTES RELATIVE PERCENT (BEAKER) (test 24 % dukl=308) MONOCYTES RELATIVE PERCENT (BEAKER) (test 7 % vhiw=194) EOSINOPHILS RELATIVE PERCENT (BEAKER) (test 3 % dlna=458) BASOPHILS RELATIVE PERCENT (BEAKER) (test 0 % fumc=435) NEUTROPHILS ABSOLUTE COUNT (BEAKER) (test 4.13 K/ L 1.56-6.13 iypi=842) LYMPHOCYTES ABSOLUTE COUNT (BEAKER) (test 1.50 K/ L 1.18-3.74 nqmg=633) MONOCYTES ABSOLUTE COUNT (BEAKER) (test 0.44 K/ L 0.24-0.36 ijbh=124) EOSINOPHILS ABSOLUTE COUNT (BEAKER) (test 0.20 K/ L 0.04-0.36 xfqu=296) BASOPHILS ABSOLUTE COUNT (BEAKER) (test 0.02 K/ L 0.01-0.08 jvle=040) IMMATURE GRANULOCYTES-RELATIVE PERCENT (BEAKER) 1 % 0-1 (test sela=2784) POCT-GLUCOSE [id number] 07:21:00 Test Item Value Reference Range Comments POC-GLUCOSE METER (BEAKER) 146 mg/dL 70-110 TESTED AT [address] (test txab=8676) [place] [address] POCT-GLUCOSE [id number] 22:02:00 Test Item Value Reference Range Comments POC-GLUCOSE METER (BEAKER) 201 mg/dL 70-110 TESTED AT [address] (test sygr=4190) [place] [address] POCT-GLUCOSE [id number] 18:27:00 Test Item Value Reference Range Comments POC-GLUCOSE METER (BEAKER) 240 mg/dL 70-110 TESTED AT [address] (test fdvw=8020) [place] [id number] POCT-GLUCOSE [id number] 12:13:00 Test Item Value Reference Range Comments POC-GLUCOSE METER (BEAKER) 193 mg/dL 70-110 TESTED AT [address] (test peie=5817) [place] [id number] POCT-GLUCOSE [id number] 09:02:00 Test Item Value Reference Range Comments POC-GLUCOSE METER (BEAKER) 132 mg/dL 70-110 TESTED AT [address] (test brto=2146) [place] [id number] CALCIUM, [id number] 05:42:00 Test Item Value Reference Range Comments CALCIUM IONIZED (BEAKER) (test locp=027) 1.12 mmol/L 1.12-1.27 PH, BLOOD (BEAKER) (test vece=4059) 7.34 COMPREHENSIVE METABOLIC [id number] 05:33:00 Test Item Value Reference Range Comments TOTAL PROTEIN (BEAKER) 5.9 gm/dL 6.0-8.3 (test qehw=716) ALBUMIN (BEAKER) (test 2.7 g/dL 3.5-5.0 ronv=9167) ALKALINE PHOSPHATASE 130 U/L 40-150 (BEAKER) (test lafm=225) BILIRUBIN TOTAL (BEAKER) 0.3 mg/dL 0.2-1.2 (test mbld=944) SODIUM (BEAKER) (test 135 meq/L 136-145 waol=601) POTASSIUM (BEAKER) (test 4.7 meq/L 3.5-5.1 kszd=616) CHLORIDE (BEAKER) (test 105 meq/L 98-107 pfxr=475) CO2 (BEAKER) (test 24 meq/L 22-29 dmsr=004) BLOOD UREA NITROGEN 42 mg/dL 7-21 (BEAKER) (test zybb=828) CREATININE (BEAKER) (test 1.78 mg/dL 0.57-1.25 yzvf=221) GLUCOSE RANDOM (BEAKER) 129 mg/dL 70-105 (test qpet=179) CALCIUM (BEAKER) (test 8.5 mg/dL 8.4-10.2 riwd=960) AST (SGOT) (BEAKER) (test 23 U/L 5-34 irpq=346) ALT (SGPT) (BEAKER) (test 15 U/L 6-55 grei=109) EGFR (BEAKER) (test 29 mL/min/1.73 sq m ESTIMATED GFR IS NOT oetv=4140) ACCURATE CREATININE CLEARANCE IN PREDICTING GLOMERULAR FILTRATION RATE. ESTIMATED GFR IS NOT APPLICABLE FOR DIALYSIS PATIENTS. [id number] 05:32:00 Test Item Value Reference Range Comments PHOSPHORUS (BEAKER) (test rwao=991) 3.6 mg/dL 2.3-4.7 [id number] 05:32:00 Test Item Value Reference Range Comments MAGNESIUM (BEAKER) (test zrnq=686) 2.2 mg/dL 1.6-2.6 CBC W/PLT COUNT & AUTO [id number] 05:01:00 Test Item Value Reference Range Comments WHITE BLOOD CELL COUNT (BEAKER) (test ngcd=306) 6.4 K/ L 3.5-10.5 RED BLOOD CELL COUNT (BEAKER) (test zklu=209) 3.43 M/ L 3.93-5.22 HEMOGLOBIN (BEAKER) (test bdxk=571) 8.9 GM/DL 11.2-15.7 HEMATOCRIT (BEAKER) (test qmjm=325) 28.9 % 34.1-44.9 MEAN CORPUSCULAR VOLUME (BEAKER) (test kfrd=136) 84.3 fL 79.4-94.8 MEAN CORPUSCULAR HEMOGLOBIN (BEAKER) (test 25.9 pg 25.6-32.2 pkwx=752) MEAN CORPUSCULAR HEMOGLOBIN CONC (BEAKER) (test 30.8 GM/DL 32.2-35.5 ocru=367) RED CELL DISTRIBUTION WIDTH (BEAKER) (test 15.0 % 11.7-14.4 kodz=604) PLATELET COUNT (BEAKER) (test idna=487) 324 K/CU MM 150-450 MEAN PLATELET VOLUME (BEAKER) (test bwxb=503) 9.3 fL 9.4-12.3 NUCLEATED RED BLOOD CELLS (BEAKER) (test 0 /100 WBC 0-0 bzyg=735) NEUTROPHILS RELATIVE PERCENT (BEAKER) (test 62 % prrn=638) LYMPHOCYTES RELATIVE PERCENT (BEAKER) (test 25 % zfuq=670) MONOCYTES RELATIVE PERCENT (BEAKER) (test 8 % zcsu=761) EOSINOPHILS RELATIVE PERCENT (BEAKER) (test 4 % ywyk=495) BASOPHILS RELATIVE PERCENT (BEAKER) (test 1 % skbs=626) NEUTROPHILS ABSOLUTE COUNT (BEAKER) (test 3.93 K/ L 1.56-6.13 kxnb=818) LYMPHOCYTES ABSOLUTE COUNT (BEAKER) (test 1.60 K/ L 1.18-3.74 qgzg=061) MONOCYTES ABSOLUTE COUNT (BEAKER) (test 0.51 K/ L 0.24-0.36 vaku=467) EOSINOPHILS ABSOLUTE COUNT (BEAKER) (test 0.25 K/ L 0.04-0.36 ejyx=308) BASOPHILS ABSOLUTE COUNT (BEAKER) (test 0.03 K/ L 0.01-0.08 itwv=571) IMMATURE GRANULOCYTES-RELATIVE PERCENT (BEAKER) 1 % 0-1 (test zafj=3939) POCT-GLUCOSE [id number] 21:04:00 Test Item Value Reference Range Comments POC-GLUCOSE METER (BEAKER) 165 mg/dL 70-110 TESTED AT [address] (test mubg=8744) [place] [id number] POCT-GLUCOSE [id number] 17:30:00 Test Item Value Reference Range Comments POC-GLUCOSE METER (BEAKER) 236 mg/dL 70-110 TESTED AT [address] (test vpek=6378) [place] [address] RAD, CHEST, 1 VIEW, NON [id number] 13:53:00Reason for exam:->assess for ill-defined opacityShould this [...] [place] Verified Date/Time: 05/28/2017 13:53:03 Reading Location: [address] Radiology Reading Room Electronically signed by: LUIS ALBERTO CALLAWAY M.D. on 01:53 PMPOCT-GLUCOSE [id number] 11:53:00 Test Item Value Reference Range Comments POC-GLUCOSE METER (BEAKER) 215 mg/dL 70-110 TESTED AT [address] (test exal=2250) [facility] [address] POCT-GLUCOSE [id number] 08:32:00 Test Item Value Reference Range Comments POC-GLUCOSE METER (BEAKER) 168 mg/dL 70-110 TESTED AT [address] (test prgf=5013) [place] [id number] CALCIUM, [id number] 05:44:00 Test Item Value Reference Range Comments CALCIUM IONIZED (BEAKER) (test gtef=064) 1.09 mmol/L 1.12-1.27 PH, BLOOD (BEAKER) (test qrsa=0939) 7.38 [id number] 05:44:00 Test Item Value Reference Range Comments PHOSPHORUS (BEAKER) (test yuut=227) 3.5 mg/dL 2.3-4.7 [id number] 05:44:00 Test Item Value Reference Range Comments MAGNESIUM (BEAKER) (test wfkd=128) 1.9 mg/dL 1.6-2.6 BASIC METABOLIC [id number] 05:44:00 Test Item Value Reference Range Comments SODIUM (BEAKER) (test 137 meq/L 136-145 oqpv=590) POTASSIUM (BEAKER) (test 4.5 meq/L 3.5-5.1 hvfn=433) CHLORIDE (BEAKER) (test 108 meq/L 98-107 jjrv=937) CO2 (BEAKER) (test 23 meq/L 22-29 rxck=300) BLOOD UREA NITROGEN 41 mg/dL 7-21 (BEAKER) (test hhfw=269) CREATININE (BEAKER) (test 1.41 mg/dL 0.57-1.25 afve=169) GLUCOSE RANDOM (BEAKER) 113 mg/dL 70-105 (test hfut=373) CALCIUM (BEAKER) (test 8.1 mg/dL 8.4-10.2 mnwc=216) EGFR (BEAKER) (test 38 mL/min/1.73 sq m ESTIMATED GFR IS NOT jfua=0168) ACCURATE CREATININE CLEARANCE IN PREDICTING GLOMERULAR FILTRATION RATE. ESTIMATED GFR IS NOT APPLICABLE FOR DIALYSIS PATIENTS. CBC W/PLT COUNT & AUTO [id number] 05:05:00 Test Item Value Reference Range Comments WHITE BLOOD CELL COUNT (BEAKER) (test kfpr=013) 6.3 K/ L 3.5-10.5 RED BLOOD CELL COUNT (BEAKER) (test jaux=297) 3.40 M/ L 3.93-5.22 HEMOGLOBIN (BEAKER) (test kqwb=663) 8.8 GM/DL 11.2-15.7 HEMATOCRIT (BEAKER) (test havv=963) 29.0 % 34.1-44.9 MEAN CORPUSCULAR VOLUME (BEAKER) (test mvqm=560) 85.3 fL 79.4-94.8 MEAN CORPUSCULAR HEMOGLOBIN (BEAKER) (test 25.9 pg 25.6-32.2 xhtn=971) MEAN CORPUSCULAR HEMOGLOBIN CONC (BEAKER) (test 30.3 GM/DL 32.2-35.5 nzjl=179) RED CELL DISTRIBUTION WIDTH (BEAKER) (test 14.9 % 11.7-14.4 ktnb=711) PLATELET COUNT (BEAKER) (test qiqo=271) 282 K/CU MM 150-450 MEAN PLATELET VOLUME (BEAKER) (test pndo=800) 9.5 fL 9.4-12.3 NUCLEATED RED BLOOD CELLS (BEAKER) (test 0 /100 WBC 0-0 hgow=283) NEUTROPHILS RELATIVE PERCENT (BEAKER) (test 59 % swnz=105) LYMPHOCYTES RELATIVE PERCENT (BEAKER) (test 28 % ndgt=984) MONOCYTES RELATIVE PERCENT (BEAKER) (test 7 % hpwe=361) EOSINOPHILS RELATIVE PERCENT (BEAKER) (test 4 % gnne=773) BASOPHILS RELATIVE PERCENT (BEAKER) (test 1 % qzho=801) NEUTROPHILS ABSOLUTE COUNT (BEAKER) (test 3.75 K/ L 1.56-6.13 elsb=651) LYMPHOCYTES ABSOLUTE COUNT (BEAKER) (test 1.80 K/ L 1.18-3.74 woew=512) MONOCYTES ABSOLUTE COUNT (BEAKER) (test 0.45 K/ L 0.24-0.36 wahr=943) EOSINOPHILS ABSOLUTE COUNT (BEAKER) (test 0.25 K/ L 0.04-0.36 gokx=266) BASOPHILS ABSOLUTE COUNT (BEAKER) (test 0.05 K/ L 0.01-0.08 kknd=782) IMMATURE GRANULOCYTES-RELATIVE PERCENT (BEAKER) 1 % 0-1 (test mmij=5931) POCT-GLUCOSE [id number] 21:03:00 Test Item Value Reference Range Comments POC-GLUCOSE METER (BEAKER) 173 mg/dL 70-110 TESTED AT [address] (test nhcf=2171) [place] [address] [id number] 18:15:00 Test Item Value Reference Range Comments ACTIVATED CLOTTING TIME 147 sec TESTED AT [address] (BEAKER) (test ukuq=585) [place] [address] [id number] 18:15:00 Test Item Value Reference Range Comments ACTIVATED CLOTTING TIME 246 sec TESTED AT [place] [id number] [place] (BEAKER) (test bggh=890) [facility] [address] POCT-GLUCOSE [id number] 12:39:00 Test Item Value Reference Range Comments POC-GLUCOSE METER (BEAKER) 219 mg/dL 70-110 TESTED AT [address] (test thzb=2870) [facility] [address] RAD, CHEST, 1 VIEW, NON [id number] 10:11:00Reason for exam:->pl effusionShould this be performed at the bedside?->YesFINAL REPORT Chest one view compared to May 26 Discussion: There is cardiac prominence. Upper lungs are clear. Ill-defined basilar densities are similar probably atelectasis. No gross effusion or pneumothorax with bilateral chest tubes in place. Signed: Jeannette Nava Verified Date/Time: 2017 10:11:44 Reading Location: [facility] Radiology Reading Room POCT- GLUCOSE [id number] 07:05:00 Test Item Value Reference Range Comments POC-GLUCOSE METER (BEAKER) 167 mg/dL 70-110 TESTED AT [address] (test qhyb=8819) [facility] [address] CALCIUM, [id number] 06:20:00 Test Item Value Reference Range Comments CALCIUM IONIZED (BEAKER) (test xcri=584) 0.98 mmol/L 1.12-1.27 PH, BLOOD (BEAKER) (test uscv=7068) 7.50 [id number] 04:56:00 Test Item Value Reference Range Comments PHOSPHORUS (BEAKER) (test xspx=538) 2.6 mg/dL 2.3-4.7 [id number] 04:56:00 Test Item Value Reference Range Comments MAGNESIUM (BEAKER) (test rljp=950) 2.0 mg/dL 1.6-2.6 BASIC METABOLIC [id number] 04:56:00 Test Item Value Reference Range Comments SODIUM (BEAKER) (test 135 meq/L 136-145 mlpx=551) POTASSIUM (BEAKER) (test 4.5 meq/L 3.5-5.1 lrhy=751) CHLORIDE (BEAKER) (test 105 meq/L 98-107 svez=977) CO2 (BEAKER) (test 22 meq/L 22-29 wcos=958) BLOOD UREA NITROGEN 47 mg/dL 7-21 (BEAKER) (test puyw=915) CREATININE (BEAKER) (test 1.44 mg/dL 0.57-1.25 hwsd=113) GLUCOSE RANDOM (BEAKER) 177 mg/dL 70-105 (test pdcx=419) CALCIUM (BEAKER) (test 8.0 mg/dL 8.4-10.2 dcyu=181) EGFR (BEAKER) (test 37 mL/min/1.73 sq m ESTIMATED GFR IS NOT cmmq=5703) ACCURATE CREATININE CLEARANCE IN PREDICTING GLOMERULAR FILTRATION RATE. ESTIMATED GFR IS NOT APPLICABLE FOR DIALYSIS PATIENTS. CBC W/PLT COUNT & AUTO [id number] 04:36:00 Test Item Value Reference Range Comments WHITE BLOOD CELL COUNT (BEAKER) (test zwcy=837) 6.1 K/ L 3.5-10.5 RED BLOOD CELL COUNT (BEAKER) (test kash=635) 3.35 M/ L 3.93-5.22 HEMOGLOBIN (BEAKER) (test fzfq=331) 8.6 GM/DL 11.2-15.7 HEMATOCRIT (BEAKER) (test ckzc=081) 28.0 % 34.1-44.9 MEAN CORPUSCULAR VOLUME (BEAKER) (test rszh=785) 83.6 fL 79.4-94.8 MEAN CORPUSCULAR HEMOGLOBIN (BEAKER) (test 25.7 pg 25.6-32.2 iuys=233) MEAN CORPUSCULAR HEMOGLOBIN CONC (BEAKER) (test 30.7 GM/DL 32.2-35.5 sgwe=234) RED CELL DISTRIBUTION WIDTH (BEAKER) (test 14.7 % 11.7-14.4 dppx=515) PLATELET COUNT (BEAKER) (test oods=527) 280 K/CU MM 150-450 MEAN PLATELET VOLUME (BEAKER) (test wesa=737) 9.9 fL 9.4-12.3 NUCLEATED RED BLOOD CELLS (BEAKER) (test 0 /100 WBC 0-0 zmtz=015) NEUTROPHILS RELATIVE PERCENT (BEAKER) (test 65 % eaxx=295) LYMPHOCYTES RELATIVE PERCENT (BEAKER) (test 23 % xnce=794) MONOCYTES RELATIVE PERCENT (BEAKER) (test 7 % grmz=419) EOSINOPHILS RELATIVE PERCENT (BEAKER) (test 4 % smtc=722) BASOPHILS RELATIVE PERCENT (BEAKER) (test 1 % rfqf=334) NEUTROPHILS ABSOLUTE COUNT (BEAKER) (test 3.97 K/ L 1.56-6.13 bbvb=290) LYMPHOCYTES ABSOLUTE COUNT (BEAKER) (test 1.41 K/ L 1.18-3.74 qipi=528) MONOCYTES ABSOLUTE COUNT (BEAKER) (test 0.44 K/ L 0.24-0.36 jbvw=371) EOSINOPHILS ABSOLUTE COUNT (BEAKER) (test 0.22 K/ L 0.04-0.36 nyqe=494) BASOPHILS ABSOLUTE COUNT (BEAKER) (test 0.05 K/ L 0.01-0.08 igyt=522) IMMATURE GRANULOCYTES-RELATIVE PERCENT (BEAKER) 1 % 0-1 (test awvb=3290) POCT-GLUCOSE [id number] 21:29:00 Test Item Value Reference Range Comments POC-GLUCOSE METER (BEAKER) 147 mg/dL 70-110 TESTED AT [address] (test xqtz=4960) [place] [address] POCT-GLUCOSE [id number] 17:51:00 Test Item Value Reference Range Comments POC-GLUCOSE METER (BEAKER) 224 mg/dL 70-110 TESTED AT [address] (test reum=2759) [place] [address] POCT-GLUCOSE [id number] 13:53:00 Test Item Value Reference Range Comments POC-GLUCOSE METER (BEAKER) 182 mg/dL 70-110 TESTED AT [address] (test buiu=2489) [place] [id number] RAD, CHEST, 1 VIEW, NON [id number] 08:44:00Reason for exam:->pl effusionShould this be performed [...] Verified Date/Time : 05/26/2017 08:44:25 Reading Location: [address] Radiology Reading Room POCT- GLUCOSE [id number] 07:43:00 Test Item Value Reference Range Comments POC-GLUCOSE METER (BEAKER) 113 mg/dL 70-110 TESTED AT [facility] [address] [facility] (test cqve=5209) [facility] [address] CALCIUM, [id number] 06:31:00 Test Item Value Reference Range Comments CALCIUM IONIZED (BEAKER) (test ezda=839) 1.07 mmol/L 1.12-1.27 PH, BLOOD (BEAKER) (test oocz=3920) 7.38 [id number] 04:51:00 Test Item Value Reference Range Comments PHOSPHORUS (BEAKER) (test jvdd=660) 3.2 mg/dL 2.3-4.7 [id number] 04:51:00 Test Item Value Reference Range Comments MAGNESIUM (BEAKER) (test zajv=410) 2.1 mg/dL 1.6-2.6 BASIC METABOLIC [id number] 04:51:00 Test Item Value Reference Range Comments SODIUM (BEAKER) (test 139 meq/L 136-145 rebr=641) POTASSIUM (BEAKER) (test 4.1 meq/L 3.5-5.1 wehb=889) CHLORIDE (BEAKER) (test 106 meq/L 98-107 uibg=265) CO2 (BEAKER) (test 24 meq/L 22-29 krha=462) BLOOD UREA NITROGEN 52 mg/dL 7-21 (BEAKER) (test lnmc=343) CREATININE (BEAKER) (test 1.52 mg/dL 0.57-1.25 ykev=465) GLUCOSE RANDOM (BEAKER) 108 mg/dL 70-105 (test ofjq=134) CALCIUM (BEAKER) (test 8.4 mg/dL 8.4-10.2 wyrb=095) EGFR (BEAKER) (test 35 mL/min/1.73 sq m ESTIMATED GFR IS NOT evbc=1583) ACCURATE CREATININE CLEARANCE IN PREDICTING GLOMERULAR FILTRATION RATE. ESTIMATED GFR IS NOT APPLICABLE FOR DIALYSIS PATIENTS. CBC W/PLT COUNT & AUTO [id number] 04:27:00 Test Item Value Reference Range Comments WHITE BLOOD CELL COUNT (BEAKER) (test oywz=268) 7.2 K/ L 3.5-10.5 RED BLOOD CELL COUNT (BEAKER) (test tsev=261) 3.53 M/ L 3.93-5.22 HEMOGLOBIN (BEAKER) (test azrz=775) 9.1 GM/DL 11.2-15.7 HEMATOCRIT (BEAKER) (test hzjs=344) 29.5 % 34.1-44.9 MEAN CORPUSCULAR VOLUME (BEAKER) (test uevz=536) 83.6 fL 79.4-94.8 MEAN CORPUSCULAR HEMOGLOBIN (BEAKER) (test 25.8 pg 25.6-32.2 lfbk=527) MEAN CORPUSCULAR HEMOGLOBIN CONC (BEAKER) (test 30.8 GM/DL 32.2-35.5 pnvp=980) RED CELL DISTRIBUTION WIDTH (BEAKER) (test 14.6 % 11.7-14.4 ucms=617) PLATELET COUNT (BEAKER) (test vjjh=542) 296 K/CU MM 150-450 MEAN PLATELET VOLUME (BEAKER) (test yfwp=303) 9.5 fL 9.4-12.3 NUCLEATED RED BLOOD CELLS (BEAKER) (test 0 /100 WBC 0-0 kbwa=401) NEUTROPHILS RELATIVE PERCENT (BEAKER) (test 67 % jivi=394) LYMPHOCYTES RELATIVE PERCENT (BEAKER) (test 21 % unok=433) MONOCYTES RELATIVE PERCENT (BEAKER) (test 7 % cziw=328) EOSINOPHILS RELATIVE PERCENT (BEAKER) (test 4 % rcvj=882) BASOPHILS RELATIVE PERCENT (BEAKER) (test 1 % quxo=607) NEUTROPHILS ABSOLUTE COUNT (BEAKER) (test 4.79 K/ L 1.56-6.13 nqlg=799) LYMPHOCYTES ABSOLUTE COUNT (BEAKER) (test 1.49 K/ L 1.18-3.74 maeh=806) MONOCYTES ABSOLUTE COUNT (BEAKER) (test 0.50 K/ L 0.24-0.36 vasb=129) EOSINOPHILS ABSOLUTE COUNT (BEAKER) (test 0.30 K/ L 0.04-0.36 elna=056) BASOPHILS ABSOLUTE COUNT (BEAKER) (test 0.05 K/ L 0.01-0.08 esmo=919) IMMATURE GRANULOCYTES-RELATIVE PERCENT (BEAKER) 0 % 0-1 (test lcgy=6077) POCT-GLUCOSE [id number] 23:48:00 Test Item Value Reference Range Comments POC-GLUCOSE METER (BEAKER) 123 mg/dL 70-110 TESTED AT [address] (test xqgf=2208) [place] [address] POCT-GLUCOSE [id number] 16:46:00 Test Item Value Reference Range Comments POC-GLUCOSE METER (BEAKER) 178 mg/dL 70-110 TESTED AT [address] (test xpbb=8547) [place] [address] BASIC METABOLIC [id number] 05:53:00 Test Item Value Reference Range Comments SODIUM (BEAKER) (test 139 meq/L 136-145 giqi=744) POTASSIUM (BEAKER) (test 3.9 meq/L 3.5-5.1 wbyn=206) CHLORIDE (BEAKER) (test 106 meq/L 98-107 trvz=043) CO2 (BEAKER) (test 23 meq/L 22-29 iwuf=707) BLOOD UREA NITROGEN 62 mg/dL 7-21 (BEAKER) (test elos=585) CREATININE (BEAKER) (test 2.05 mg/dL 0.57-1.25 znzk=262) GLUCOSE RANDOM (BEAKER) 87 mg/dL 70-105 (test ucjy=111) CALCIUM (BEAKER) (test 7.9 mg/dL 8.4-10.2 xawl=691) EGFR (BEAKER) (test 25 mL/min/1.73 sq m ESTIMATED GFR IS NOT gylj=6805) ACCURATE CREATININE CLEARANCE IN PREDICTING GLOMERULAR FILTRATION RATE. ESTIMATED GFR IS NOT APPLICABLE FOR DIALYSIS PATIENTS. [id number] 05:52:00 Test Item Value Reference Range Comments PHOSPHORUS (BEAKER) (test kwbi=669) 4.2 mg/dL 2.3-4.7 [id number] 05:52:00 Test Item Value Reference Range Comments MAGNESIUM (BEAKER) (test ltre=763) 2.3 mg/dL 1.6-2.6 CALCIUM, [id number] 05:27:00 Test Item Value Reference Range Comments CALCIUM IONIZED (BEAKER) (test rvun=643) 1.12 mmol/L 1.12-1.27 PH, BLOOD (BEAKER) (test mlbi=4903) 7.38 CBC W/PLT COUNT & AUTO [id number] 05:07:00 Test Item Value Reference Range Comments WHITE BLOOD CELL COUNT (BEAKER) (test icya=165) 8.4 K/ L 3.5-10.5 RED BLOOD CELL COUNT (BEAKER) (test jsad=816) 3.16 M/ L 3.93-5.22 HEMOGLOBIN (BEAKER) (test acjk=607) 8.2 GM/DL 11.2-15.7 HEMATOCRIT (BEAKER) (test wssj=077) 26.5 % 34.1-44.9 MEAN CORPUSCULAR VOLUME (BEAKER) (test ofiu=899) 83.9 fL 79.4-94.8 MEAN CORPUSCULAR HEMOGLOBIN (BEAKER) (test 25.9 pg 25.6-32.2 hbjt=735) MEAN CORPUSCULAR HEMOGLOBIN CONC (BEAKER) (test 30.9 GM/DL 32.2-35.5 rnvt=101) RED CELL DISTRIBUTION WIDTH (BEAKER) (test 14.6 % 11.7-14.4 pkna=748) PLATELET COUNT (BEAKER) (test yios=640) 256 K/CU MM 150-450 MEAN PLATELET VOLUME (BEAKER) (test cver=816) 10.0 fL 9.4-12.3 NUCLEATED RED BLOOD CELLS (BEAKER) (test 0 /100 WBC 0-0 jrdm=906) NEUTROPHILS RELATIVE PERCENT (BEAKER) (test 63 % sayi=373) LYMPHOCYTES RELATIVE PERCENT (BEAKER) (test 25 % byiy=650) MONOCYTES RELATIVE PERCENT (BEAKER) (test 8 % pvjo=558) EOSINOPHILS RELATIVE PERCENT (BEAKER) (test 3 % xzvh=146) BASOPHILS RELATIVE PERCENT (BEAKER) (test 1 % xvbn=919) NEUTROPHILS ABSOLUTE COUNT (BEAKER) (test 5.27 K/ L 1.56-6.13 ueou=205) LYMPHOCYTES ABSOLUTE COUNT (BEAKER) (test 2.09 K/ L 1.18-3.74 zrjs=274) MONOCYTES ABSOLUTE COUNT (BEAKER) (test 0.63 K/ L 0.24-0.36 nnjn=959) EOSINOPHILS ABSOLUTE COUNT (BEAKER) (test 0.27 K/ L 0.04-0.36 djgo=242) BASOPHILS ABSOLUTE COUNT (BEAKER) (test 0.05 K/ L 0.01-0.08 fanx=248) IMMATURE GRANULOCYTES-RELATIVE PERCENT (BEAKER) 1 % 0-1 (test kgfs=3505) RAD, CHEST, 1 VIEW, NON [id number] 04:45:00Reason for exam:->pl effusionShould this be performed [...] MDReport Verified Date/Time: 05/25/2017 04:45:08 Reading Location: [address] Body Reading Room POCT-GLUCOSE [id number] 01:52:00 Test Item Value Reference Range Comments POC-GLUCOSE METER (BEAKER) 126 mg/dL 70-110 TESTED AT [address] (test lphw=4930) [facility] [address] POCT-GLUCOSE [id number] 13:07:00 Test Item Value Reference Range Comments POC-GLUCOSE METER (BEAKER) 118 mg/dL 70-110 TESTED AT [place] [id number] [facility] (test spgl=4550) [place] [id number] BRONCHIAL CULTURE + GRAM [id number] 11:35:00 Test Item Value Reference Range Comments CULTURE (BEAKER) (test wzld=8863) Amikacin (test code=1) Susceptible 0-16 , Resistant [...] >40 code=47) CULTURE (BEAKER) (test 4+ Bordetella wzec=5968) bronchiseptica GRAM STAIN RESULT 1+ WBCs (BEAKER) (test egre=1152) GRAM STAIN RESULT <1+ gram positive (BEAKER) (test cocci in pairs fxjl=642875) GRAM STAIN RESULT 1+ gram variable (BEAKER) (test rods fodk=998508) 1+ Normal respiratory todd presentRAD, CHEST, 1 VIEW, NON [id number] 06:50: 00Reason for exam:->pl effusionShould this be [...] MDReport Verified Date/Time: 05/24/2017 06:50:08 Reading Location: [address] Body Reading Room BASIC METABOLIC [id number] 04: 19:00 Test Item Value Reference Range Comments SODIUM (BEAKER) (test 136 meq/L 136-145 yhlm=210) POTASSIUM (BEAKER) (test 4.3 meq/L 3.5-5.1 omoh=337) CHLORIDE (BEAKER) (test 104 meq/L 98-107 lyrh=071) CO2 (BEAKER) (test 20 meq/L 22-29 vlgn=021) BLOOD UREA NITROGEN 61 mg/dL 7-21 (BEAKER) (test gupl=017) CREATININE (BEAKER) (test 2.69 mg/dL 0.57-1.25 hqmj=310) GLUCOSE RANDOM (BEAKER) 107 mg/dL 70-105 (test sbbq=137) CALCIUM (BEAKER) (test 7.8 mg/dL 8.4-10.2 qdav=409) EGFR (BEAKER) (test 18 mL/min/1.73 sq m ESTIMATED GFR IS NOT ecwc=7831) ACCURATE CREATININE CLEARANCE IN PREDICTING GLOMERULAR FILTRATION RATE. ESTIMATED GFR IS NOT APPLICABLE FOR DIALYSIS PATIENTS. CALCIUM, [id number] 04:16:00 Test Item Value Reference Range Comments CALCIUM IONIZED (BEAKER) (test dtmi=150) 1.06 mmol/L 1.12-1.27 PH, BLOOD (BEAKER) (test gqah=2196) 7.40 [id number] 04:11:00 Test Item Value Reference Range Comments PHOSPHORUS (BEAKER) (test gnuz=351) 6.0 mg/dL 2.3-4.7 [id number] 04:11:00 Test Item Value Reference Range Comments MAGNESIUM (BEAKER) (test nohi=475) 2.4 mg/dL 1.6-2.6 CBC W/PLT COUNT & AUTO [id number] 03:50:00 Test Item Value Reference Range Comments WHITE BLOOD CELL COUNT (BEAKER) (test iznq=417) 9.5 K/ L 3.5-10.5 RED BLOOD CELL COUNT (BEAKER) (test yrzy=635) 3.06 M/ L 3.93-5.22 HEMOGLOBIN (BEAKER) (test iiqs=156) 7.9 GM/DL 11.2-15.7 HEMATOCRIT (BEAKER) (test olsw=370) 25.5 % 34.1-44.9 MEAN CORPUSCULAR VOLUME (BEAKER) (test vusw=851) 83.3 fL 79.4-94.8 MEAN CORPUSCULAR HEMOGLOBIN (BEAKER) (test 25.8 pg 25.6-32.2 hwob=903) MEAN CORPUSCULAR HEMOGLOBIN CONC (BEAKER) (test 31.0 GM/DL 32.2-35.5 ohwf=869) RED CELL DISTRIBUTION WIDTH (BEAKER) (test 15.1 % 11.7-14.4 ntms=688) PLATELET COUNT (BEAKER) (test rmed=458) 224 K/CU MM 150-450 MEAN PLATELET VOLUME (BEAKER) (test reww=634) 10.5 fL 9.4-12.3 NUCLEATED RED BLOOD CELLS (BEAKER) (test 0 /100 WBC 0-0 sahd=642) NEUTROPHILS RELATIVE PERCENT (BEAKER) (test 70 % uqyp=755) LYMPHOCYTES RELATIVE PERCENT (BEAKER) (test 21 % ilnj=161) MONOCYTES RELATIVE PERCENT (BEAKER) (test 7 % onah=085) EOSINOPHILS RELATIVE PERCENT (BEAKER) (test 2 % mvzl=800) BASOPHILS RELATIVE PERCENT (BEAKER) (test 0 % lame=036) NEUTROPHILS ABSOLUTE COUNT (BEAKER) (test 6.60 K/ L 1.56-6.13 fnxs=674) LYMPHOCYTES ABSOLUTE COUNT (BEAKER) (test 2.02 K/ L 1.18-3.74 rurt=479) MONOCYTES ABSOLUTE COUNT (BEAKER) (test 0.63 K/ L 0.24-0.36 bydx=110) EOSINOPHILS ABSOLUTE COUNT (BEAKER) (test 0.15 K/ L 0.04-0.36 ipcu=396) BASOPHILS ABSOLUTE COUNT (BEAKER) (test 0.04 K/ L 0.01-0.08 gmxe=660) IMMATURE GRANULOCYTES-RELATIVE PERCENT (BEAKER) 0 % 0-1 (test pnbe=2531) POCT-GLUCOSE [id number] 20:45:00 Test Item Value Reference Range Comments POC-GLUCOSE METER (BEAKER) 143 mg/dL 70-110 TESTED AT [address] (test ffxm=4034) [facility] [address] POCT-GLUCOSE [id number] 20:45:00 Test Item Value Reference Range Comments POC-GLUCOSE METER (BEAKER) 145 mg/dL 70-110 TESTED AT [address] (test fhox=0244) [facility] [address] [id number] 13:37:00 Test Item Value Reference Range Comments PREALBUMIN (BEAKER) (test 10 mg/dL 14-45 Specimen slightly hemolyzed foph=965) OXYGEN SATURATION, [id number] 12:31:00 Test Item Value Reference Range Comments O2 SATURATION (MEASURED) (BEAKER) (test aocx=0460) 94.5 % [id number] 11:02:00 Test Item Value Reference Range Comments PREALBUMIN (BEAKER) (test srbv=656) 10 mg/dL 14-45 RAD, CHEST, 1 VIEW, NON [id number] 05:14:00while patient is intubated or has chest [...] MDReport Verified Date/Time: 05/23/2017 05:14:04 Reading Location: [address] Body Reading Room BASIC METABOLIC [id number] 03:48:00 Test Item Value Reference Range Comments SODIUM (BEAKER) (test 138 meq/L 136-145 yrvt=359) POTASSIUM (BEAKER) (test 4.6 meq/L 3.5-5.1 Specimen slightly hcsm=681) hemolyzed CHLORIDE (BEAKER) (test 106 meq/L 98-107 yzfb=334) CO2 (BEAKER) (test 20 meq/L 22-29 owyh=141) BLOOD UREA NITROGEN 54 mg/dL 7-21 (BEAKER) (test jigu=147) CREATININE (BEAKER) (test 2.66 mg/dL 0.57-1.25 Specimen slightly jskn=376) hemolyzed GLUCOSE RANDOM (BEAKER) 113 mg/dL 70-105 (test wura=135) CALCIUM (BEAKER) (test 7.9 mg/dL 8.4-10.2 zlde=781) EGFR (BEAKER) (test 18 mL/min/1.73 sq m ESTIMATED GFR IS NOT mlkq=2202) ACCURATE CREATININE CLEARANCE IN PREDICTING GLOMERULAR FILTRATION RATE. ESTIMATED GFR IS NOT APPLICABLE FOR DIALYSIS PATIENTS. [id number] 03:46:00 Test Item Value Reference Range Comments MAGNESIUM (BEAKER) (test 2.4 mg/dL 1.6-2.6 Specimen slightly hemolyzed trkf=808) [id number] 03:46:00 Test Item Value Reference Range Comments PHOSPHORUS (BEAKER) (test 6.5 mg/dL 2.3-4.7 Specimen slightly hemolyzed hqld=214) CBC W/PLT COUNT & AUTO [id number] 03:26:00 Test Item Value Reference Range Comments WHITE BLOOD CELL COUNT (BEAKER) (test ytci=439) 10.8 K/ L 3.5-10.5 RED BLOOD CELL COUNT (BEAKER) (test sqpp=108) 3.16 M/ L 3.93-5.22 HEMOGLOBIN (BEAKER) (test lsun=217) 8.2 GM/DL 11.2-15.7 HEMATOCRIT (BEAKER) (test rdyf=619) 26.6 % 34.1-44.9 MEAN CORPUSCULAR VOLUME (BEAKER) (test wkol=813) 84.2 fL 79.4-94.8 MEAN CORPUSCULAR HEMOGLOBIN (BEAKER) (test 25.9 pg 25.6-32.2 nqju=624) MEAN CORPUSCULAR HEMOGLOBIN CONC (BEAKER) (test 30.8 GM/DL 32.2-35.5 wjjh=731) RED CELL DISTRIBUTION WIDTH (BEAKER) (test 15.0 % 11.7-14.4 nhxo=802) PLATELET COUNT (BEAKER) (test sion=766) 195 K/CU MM 150-450 MEAN PLATELET VOLUME (BEAKER) (test tarw=784) 10.6 fL 9.4-12.3 NUCLEATED RED BLOOD CELLS (BEAKER) (test 0 /100 WBC 0-0 owst=153) NEUTROPHILS RELATIVE PERCENT (BEAKER) (test 73 % gktc=239) LYMPHOCYTES RELATIVE PERCENT (BEAKER) (test 18 % zepa=417) MONOCYTES RELATIVE PERCENT (BEAKER) (test 6 % mzmu=524) EOSINOPHILS RELATIVE PERCENT (BEAKER) (test 2 % ilwx=940) BASOPHILS RELATIVE PERCENT (BEAKER) (test 1 % ylyd=118) NEUTROPHILS ABSOLUTE COUNT (BEAKER) (test 7.95 K/ L 1.56-6.13 ndyf=561) LYMPHOCYTES ABSOLUTE COUNT (BEAKER) (test 1.93 K/ L 1.18-3.74 mqmn=103) MONOCYTES ABSOLUTE COUNT (BEAKER) (test 0.66 K/ L 0.24-0.36 zfun=876) EOSINOPHILS ABSOLUTE COUNT (BEAKER) (test 0.18 K/ L 0.04-0.36 rthr=386) BASOPHILS ABSOLUTE COUNT (BEAKER) (test 0.07 K/ L 0.01-0.08 zdqo=624) IMMATURE GRANULOCYTES-RELATIVE PERCENT (BEAKER) 0 % 0-1 (test ddop=8051) BLOOD GAS, [id number] 03:18:00 Test Item Value Reference Range Comments PH ARTERIAL (BEAKER) (test tvxu=128) 7.40 7.35-7.45 PCO2 ARTERIAL (BEAKER) (test qhhm=950) 40 mmHg 35-45 PO2 ARTERIAL (BEAKER) (test wlcl=836) 63 mmHg 80-90 O2 SATURATION ARTERIAL (BEAKER) (test mxxg=321) 92.3 % 96.0-97.0 HCO3 ARTERIAL (BEAKER) (test mhjr=335) 24 mmol/L 21-29 BASE EXCESS ARTERIAL (BEAKER) (test tlan=901) -0.6 mmol/L -2.0-3.0 PATIENT TEMPERATURE (BEAKER) (test tgqh=1725) 36.8 C FIO2 (BEAKER) (test lksf=7555) 36.0 % CALCIUM, [id number] 16:32:00 Test Item Value Reference Range Comments CALCIUM IONIZED (BEAKER) (test pszb=617) 1.11 mmol/L 1.12-1.27 PH, BLOOD (BEAKER) (test zdjk=0902) 7.39 BASIC METABOLIC [id number] 15:43:00 Test Item Value Reference Range Comments SODIUM (BEAKER) (test 139 meq/L 136-145 hrsp=185) POTASSIUM (BEAKER) (test 4.6 meq/L 3.5-5.1 fpoy=585) CHLORIDE (BEAKER) (test 106 meq/L 98-107 frtx=622) CO2 (BEAKER) (test 21 meq/L 22-29 radx=180) BLOOD UREA NITROGEN 54 mg/dL 7-21 (BEAKER) (test mtlt=677) CREATININE (BEAKER) (test 3.08 mg/dL 0.57-1.25 mlzd=709) GLUCOSE RANDOM (BEAKER) 116 mg/dL 70-105 (test dgrh=719) CALCIUM (BEAKER) (test 8.1 mg/dL 8.4-10.2 cjve=079) EGFR (BEAKER) (test 15 mL/min/1.73 sq m ESTIMATED GFR IS NOT tpnh=9665) ACCURATE CREATININE CLEARANCE IN PREDICTING GLOMERULAR FILTRATION RATE. ESTIMATED GFR IS NOT APPLICABLE FOR DIALYSIS PATIENTS. POCT-GLUCOSE [id number] 12:53:00 Test Item Value Reference Range Comments POC-GLUCOSE METER (BEAKER) 118 mg/dL 70-110 TESTED AT [address] (test bbhy=7777) [facility] [address] BLOOD GAS, [id number] 10:42:00 Test Item Value Reference Range Comments PH ARTERIAL (BEAKER) (test gilq=872) 7.40 7.35-7.45 PCO2 ARTERIAL (BEAKER) (test vqza=640) 38 mmHg 35-45 PO2 ARTERIAL (BEAKER) (test vevk=645) 78 mmHg 80-90 O2 SATURATION ARTERIAL (BEAKER) (test yzwg=046) 95.6 % 96.0-97.0 HCO3 ARTERIAL (BEAKER) (test jbld=403) 23 mmol/L 21-29 BASE EXCESS ARTERIAL (BEAKER) (test xdre=322) -1.4 mmol/L -2.0-3.0 PATIENT TEMPERATURE (BEAKER) (test rtvq=4688) 36.9 C FIO2 (BEAKER) (test bmur=0739) 40.0 % POCT-GLUCOSE [id number] 06:46:00 Test Item Value Reference Range Comments POC-GLUCOSE METER (BEAKER) 106 mg/dL 70-110 TESTED AT [address] (test djbo=7006) [facility] [address] RAD, CHEST, 1 VIEW, NON [id number] 05:05:00while patient is intubated or has chest [...] MDRepemily Verified Date/Time: 05/22/2017 05:05:00 Reading Location: [facility] C013Y CT Body ReadingRoom BASIC METABOLIC [id number] 05:00:00 Test Item Value Reference Range Comments SODIUM (BEAKER) (test 138 meq/L 136-145 fxtg=929) POTASSIUM (BEAKER) (test 4.5 meq/L 3.5-5.1 tcda=424) CHLORIDE (BEAKER) (test 107 meq/L 98-107 qbop=679) CO2 (BEAKER) (test 21 meq/L 22-29 jkxy=580) BLOOD UREA NITROGEN 53 mg/dL 7-21 (BEAKER) (test jjin=523) CREATININE (BEAKER) (test 3.23 mg/dL 0.57-1.25 sjck=451) GLUCOSE RANDOM (BEAKER) 126 mg/dL 70-105 (test hzdt=042) CALCIUM (BEAKER) (test 8.1 mg/dL 8.4-10.2 lcaq=300) EGFR (BEAKER) (test 15 mL/min/1.73 sq m ESTIMATED GFR IS NOT aqgr=4432) ACCURATE CREATININE CLEARANCE IN PREDICTING GLOMERULAR FILTRATION RATE. ESTIMATED GFR IS NOT APPLICABLE FOR DIALYSIS PATIENTS. [id number] 04:41:00 Test Item Value Reference Range Comments PHOSPHORUS (BEAKER) (test pdfh=309) 6.4 mg/dL 2.3-4.7 [id number] 04:41:00 Test Item Value Reference Range Comments MAGNESIUM (BEAKER) (test kiac=397) 2.6 mg/dL 1.6-2.6 CALCIUM, [id number] 04:26:00 Test Item Value Reference Range Comments CALCIUM IONIZED (BEAKER) (test pfyv=346) 1.09 mmol/L 1.12-1.27 PH, BLOOD (BEAKER) (test yyup=1711) 7.40 OXYGEN SATURATION, [id number] 04:25:00 Test Item Value Reference Range Comments O2 SATURATION (MEASURED) (BEAKER) (test mllj=7225) 77.0 % CBC W/PLT COUNT & AUTO [id number] 04:17:00 Test Item Value Reference Range Comments WHITE BLOOD CELL COUNT (BEAKER) (test apsu=254) 8.9 K/ L 3.5-10.5 RED BLOOD CELL COUNT (BEAKER) (test xeju=617) 3.14 M/ L 3.93-5.22 HEMOGLOBIN (BEAKER) (test bfln=344) 8.1 GM/DL 11.2-15.7 HEMATOCRIT (BEAKER) (test wcib=998) 26.1 % 34.1-44.9 MEAN CORPUSCULAR VOLUME (BEAKER) (test nzzj=630) 83.1 fL 79.4-94.8 MEAN CORPUSCULAR HEMOGLOBIN (BEAKER) (test 25.8 pg 25.6-32.2 eimx=700) MEAN CORPUSCULAR HEMOGLOBIN CONC (BEAKER) (test 31.0 GM/DL 32.2-35.5 toce=956) RED CELL DISTRIBUTION WIDTH (BEAKER) (test 15.3 % 11.7-14.4 dube=495) PLATELET COUNT (BEAKER) (test jglq=293) 156 K/CU MM 150-450 MEAN PLATELET VOLUME (BEAKER) (test amph=642) 10.2 fL 9.4-12.3 NUCLEATED RED BLOOD CELLS (BEAKER) (test 0 /100 WBC 0-0 htfo=423) NEUTROPHILS RELATIVE PERCENT (BEAKER) (test 68 % hsyw=912) LYMPHOCYTES RELATIVE PERCENT (BEAKER) (test 22 % qezt=014) MONOCYTES RELATIVE PERCENT (BEAKER) (test 8 % xiin=713) EOSINOPHILS RELATIVE PERCENT (BEAKER) (test 1 % xzow=897) BASOPHILS RELATIVE PERCENT (BEAKER) (test 1 % jdod=744) NEUTROPHILS ABSOLUTE COUNT (BEAKER) (test 6.05 K/ L 1.56-6.13 vzxp=512) LYMPHOCYTES ABSOLUTE COUNT (BEAKER) (test 1.91 K/ L 1.18-3.74 derb=473) MONOCYTES ABSOLUTE COUNT (BEAKER) (test 0.74 K/ L 0.24-0.36 zrto=515) EOSINOPHILS ABSOLUTE COUNT (BEAKER) (test 0.08 K/ L 0.04-0.36 lneq=776) BASOPHILS ABSOLUTE COUNT (BEAKER) (test 0.05 K/ L 0.01-0.08 xeqi=452) IMMATURE GRANULOCYTES-RELATIVE PERCENT (BEAKER) 0 % 0-1 (test mwla=7850) LACTIC ACID, ARTERIAL, WHOLE [id number] 00:07:00 Test Item Value Reference Range Comments LACTATE BLOOD ARTERIAL (2) 1.0 mmol/L 0.5-2.2 Specimen slightly hemolyzed (BEAKER) (test udpo=6047) Effective 08/02/2015: Units/Reference Range ChangeNew: 0.5-2.2 mmol/L Previous: 5 -20 mg/dLPOCT-GLUCOSE [id number] 23:47:00 Test Item Value Reference Range Comments POC-GLUCOSE METER (BEAKER) 180 mg/dL 70-110 TESTED AT [facility] [address] [facility] (test chud=6159) [facility] [address] BLOOD GAS, [id number] 23:46:00 Test Item Value Reference Range Comments PH ARTERIAL (BEAKER) (test jecn=454) 7.40 7.35-7.45 PCO2 ARTERIAL (BEAKER) (test tfwx=930) 37 mmHg 35-45 PO2 ARTERIAL (BEAKER) (test jhui=506) 136 mmHg 80-90 O2 SATURATION ARTERIAL (BEAKER) (test gdrr=718) 98.7 % 96.0-97.0 HCO3 ARTERIAL (BEAKER) (test lgiq=555) 22 mmol/L 21-29 BASE EXCESS ARTERIAL (BEAKER) (test ndcq=021) -2.4 mmol/L -2.0-3.0 PATIENT TEMPERATURE (BEAKER) (test wyuf=1810) 37.0 C FIO2 (BEAKER) (test jewc=4830) 100.0 % SODIUM NA-STAT [id number] 23:46:00 Test Item Value Reference Range Comments SODIUM (BEAKER) (test lmvj=681) 134 meq/L 135-148 GLUCOSE-STAT [id number] 23:46:00 Test Item Value Reference Range Comments GLUCOSE RANDOM (BEAKER) (test gvnc=478) 119 mg/dL 70-110 HGB/HCT (H&H) - STAT [id number] 23:46:00 Test Item Value Reference Range Comments HEMOGLOBIN (BEAKER) (test sfzp=065) 8.8 g/dL 12.0-15.0 HEMATOCRIT (BEAKER) (test hzdw=555) 26.0 % 36.0-45.0 OXYGEN SATURATION, [id number] 23:45:00 Test Item Value Reference Range Comments O2 SATURATION (MEASURED) (BEAKER) (test ipmr=2483) 68.1 % POTASSIUM-STAT [id number] 23:45:00 Test Item Value Reference Range Comments POTASSIUM (BEAKER) (test dyck=750) 5.5 meq/L 3.6-5.5 POCT-GLUCOSE [id number] 20:58:00 Test Item Value Reference Range Comments POC-GLUCOSE METER (BEAKER) 133 mg/dL 70-110 TESTED AT [address] (test bzfd=0593) [facility] [address] POCT-GLUCOSE [id number] 17:58:00 Test Item Value Reference Range Comments POC-GLUCOSE METER (BEAKER) 210 mg/dL 70-110 TESTED AT [address] (test jcvr=3600) [facility] [address] POCT-GLUCOSE [id number] 17:58:00 Test Item Value Reference Range Comments POC-GLUCOSE METER (BEAKER) 211 mg/dL 70-110 TESTED AT [address] (test wfbn=4710) [facility] [address] POCT-GLUCOSE [id number] 17:58:00 Test Item Value Reference Range Comments POC-GLUCOSE METER (BEAKER) 232 mg/dL 70-110 TESTED AT [address] (test rayw=1937) [facility] [address] POCT-GLUCOSE [id number] 17:58:00 Test Item Value Reference Range Comments POC-GLUCOSE METER (BEAKER) 262 mg/dL 70-110 TESTED AT [address] (test quub=8797) [place] [id number] BLOOD GAS, [id number] 17:01:00 Test Item Value Reference Range Comments PH ARTERIAL (BEAKER) (test rsop=299) 7.38 7.35-7.45 PCO2 ARTERIAL (BEAKER) (test ftav=186) 39 mmHg 35-45 PO2 ARTERIAL (BEAKER) (test uaqz=394) 75 mmHg 80-90 O2 SATURATION ARTERIAL (BEAKER) (test ofhw=864) 94.9 % 96.0-97.0 HCO3 ARTERIAL (BEAKER) (test eqnt=442) 23 mmol/L 21-29 BASE EXCESS ARTERIAL (BEAKER) (test jhsp=035) -2.5 mmol/L -2.0-3.0 PATIENT TEMPERATURE (BEAKER) (test ctud=1983) 36.8 C FIO2 (BEAKER) (test ffii=9167) 60.0 % POTASSIUM-STAT [id number] 17:00:00 Test Item Value Reference Range Comments POTASSIUM (BEAKER) (test gfvp=008) 4.8 meq/L 3.6-5.5 POCT-GLUCOSE [id number] 15:52:00 Test Item Value Reference Range Comments POC-GLUCOSE METER (BEAKER) 267 mg/dL 70-110 TESTED AT [address] (test dowm=9260) [place] [address] POCT-GLUCOSE [id number] 14:42:00 Test Item Value Reference Range Comments POC-GLUCOSE METER (BEAKER) 231 mg/dL 70-110 TESTED AT [address] (test oxbw=1509) [place] [address] BODY FLUID CELL COUNT WITH [id number] 14:41:00 Test Item Value Reference Range Comments APPEARANCE FLUID (BEAKER) (test rjsg=244) Turbid Clear COLOR FLUID (BEAKER) (test vmlm=090) Colorless Colorless, Straw RBC FLUID (BEAKER) (test ebvz=505) 2000 /cu mm <=1 ADJUSTED WBC FLUID (BEAKER) (test tobu=1088) 1489 /cu mm <=5 LINING CELLS (BEAKER) (test qfnp=5146) 119 /cu mm <=1 NEUTROPHILS FLUID (BEAKER) (test xszo=0872) 40 % LYMPHS FLUID (BEAKER) (test rilb=985) 34 % MONO/MACROPHAGE FLUID (BEAKER) (test mlbx=114) 26 % EOSINOPHILS FLUID (BEAKER) (test jhdf=792) 0 % BASO FLUID (BEAKER) (test omtb=977) 0 % CONTAINER BODY FLUID (BEAKER) (test msff=5123) EDTA Tube BASIC METABOLIC [id number] 14:11:00 Test Item Value Reference Range Comments SODIUM (BEAKER) (test 137 meq/L 136-145 ndkc=675) POTASSIUM (BEAKER) (test 5.6 meq/L 3.5-5.1 lxdb=382) CHLORIDE (BEAKER) (test 106 meq/L 98-107 hzkc=406) CO2 (BEAKER) (test 20 meq/L 22-29 qtxp=914) BLOOD UREA NITROGEN 48 mg/dL 7-21 (BEAKER) (test rukc=652) CREATININE (BEAKER) (test 2.50 mg/dL 0.57-1.25 zozr=543) GLUCOSE RANDOM (BEAKER) 221 mg/dL 70-105 (test neog=405) CALCIUM (BEAKER) (test 8.1 mg/dL 8.4-10.2 whpq=555) EGFR (BEAKER) (test 20 mL/min/1.73 sq m ESTIMATED GFR IS NOT coas=9277) ACCURATE CREATININE CLEARANCE IN PREDICTING GLOMERULAR FILTRATION RATE. ESTIMATED GFR IS NOT APPLICABLE FOR DIALYSIS PATIENTS. [id number] 14:08:00 Test Item Value Reference Range Comments PHOSPHORUS (BEAKER) (test zgnx=042) 7.2 mg/dL 2.3-4.7 [id number] 14:08:00 Test Item Value Reference Range Comments MAGNESIUM (BEAKER) (test avxt=569) 2.6 mg/dL 1.6-2.6 POCT-GLUCOSE [id number] 12:49:00 Test Item Value Reference Range Comments POC-GLUCOSE METER (BEAKER) 224 mg/dL 70-110 TESTED AT [address] (test pirf=9837) [facility] [address] POCT-GLUCOSE [id number] 12:49:00 Test Item Value Reference Range Comments POC-GLUCOSE METER (BEAKER) 248 mg/dL 70-110 TESTED AT [address] (test chct=8183) [facility] [address] RAD, CHEST, 1 VIEW, NON [id number] 12:32:00Reason for exam:->re- intubationShould this be performed [...] MDReport Verified Date/Time: 05/21/2017 12:32:08 Reading Location: [facility] Radiology Reading Room POTASSIUM-STAT [id number] 12:28:00 Test Item Value Reference Range Comments POTASSIUM (BEAKER) (test mjli=358) 5.5 meq/L 3.6-5.5 BLOOD GAS, [id number] 12:28:00 Test Item Value Reference Range Comments PH ARTERIAL (BEAKER) (test srmz=063) 7.32 7.35-7.45 PCO2 ARTERIAL (BEAKER) (test viiz=747) 45 mmHg 35-45 PO2 ARTERIAL (BEAKER) (test ofov=925) 304 mmHg 80-90 O2 SATURATION ARTERIAL (BEAKER) (test dcpe=211) 99.7 % 96.0-97.0 HCO3 ARTERIAL (BEAKER) (test vijt=446) 22 mmol/L 21-29 BASE EXCESS ARTERIAL (BEAKER) (test ityu=741) -3.7 mmol/L -2.0-3.0 PATIENT TEMPERATURE (BEAKER) (test zctw=9695) 37.0 C FIO2 (BEAKER) (test vncs=0727) 100.0 % BLOOD GAS, [id number] 10:53:00 Test Item Value Reference Range Comments PH ARTERIAL (BEAKER) (test htjj=492) 7.36 7.35-7.45 PCO2 ARTERIAL (BEAKER) (test kbzz=352) 35 mmHg 35-45 PO2 ARTERIAL (BEAKER) (test ulth=517) 40 mmHg 80-90 O2 SATURATION ARTERIAL (BEAKER) (test skal=308) 82.3 % 96.0-97.0 HCO3 ARTERIAL (BEAKER) (test ujep=016) 20 mmol/L 21-29 BASE EXCESS ARTERIAL (BEAKER) (test aefh=166) -5.9 mmol/L -2.0-3.0 PATIENT TEMPERATURE (BEAKER) (test ogvv=4277) 33.7 C FIO2 (BEAKER) (test uzkx=9765) 36.0 % RAD, CHEST, 1 VIEW, NON [id number] 08:46:00while patient is intubated or has chest [...] Verified Date/ Time: 05/21/2017 08:46:27 Reading Location: [facility] Radiology Reading Room BLOOD GAS, [id number] 05:41:00 Test Item Value Reference Range Comments PH ARTERIAL (BEAKER) (test dfqq=249) 7.33 7.35-7.45 PCO2 ARTERIAL (BEAKER) (test pukt=186) 40 mm Hg 35-45 PO2 ARTERIAL (BEAKER) (test mzpb=554) 106 mm Hg 80-90 O2 SATURATION ARTERIAL (BEAKER) (test kwrt=536) 97.5 % 96.0-97.0 HCO3 ARTERIAL (BEAKER) (test dwxq=995) 21 mmol/L 21-29 BASE EXCESS ARTERIAL (BEAKER) (test mvha=257) -5.1 mmol/L -2.0-3.0 PATIENT TEMPERATURE (BEAKER) (test pdqi=6461) 37.0 FIO2 (BEAKER) (test jejo=3646) 40 CALCIUM, [id number] 04:35:00 Test Item Value Reference Range Comments CALCIUM IONIZED (BEAKER) (test smta=426) 1.13 mmol/L 1.12-1.27 PH, BLOOD (BEAKER) (test suma=1763) 7.32 BLOOD GAS, [id number] 04:28:00 Test Item Value Reference Range Comments PH ARTERIAL (BEAKER) (test nczv=132) 7.32 7.35-7.45 PCO2 ARTERIAL (BEAKER) (test nyqx=259) 40 mmHg 35-45 PO2 ARTERIAL (BEAKER) (test spdl=235) 100 mmHg 80-90 O2 SATURATION ARTERIAL (BEAKER) (test mtmm=481) 97.2 % 96.0-97.0 HCO3 ARTERIAL (BEAKER) (test asww=339) 20 mmol/L 21-29 BASE EXCESS ARTERIAL (BEAKER) (test adsx=763) -5.7 mmol/L -2.0-3.0 PATIENT TEMPERATURE (BEAKER) (test xscc=5142) 36.9 C FIO2 (BEAKER) (test lsfi=2074) 40.0 % [id number] 04:20:00 Test Item Value Reference Range Comments PHOSPHORUS (BEAKER) (test hwmz=394) 6.2 mg/dL 2.3-4.7 [id number] 04:20:00 Test Item Value Reference Range Comments MAGNESIUM (BEAKER) (test mibg=976) 2.4 mg/dL 1.6-2.6 HEPATIC FUNCTION [id number] 04:20:00 Test Item Value Reference Range Comments TOTAL PROTEIN (BEAKER) (test sfbt=098) 4.8 gm/dL 6.0-8.3 ALBUMIN (BEAKER) (test hjku=2555) 2.5 g/dL 3.5-5.0 BILIRUBIN TOTAL (BEAKER) (test npnp=768) 0.7 mg/dL 0.2-1.2 BILIRUBIN DIRECT (BEAKER) (test ccqt=405) 0.3 mg/dL 0.1-0.5 ALKALINE PHOSPHATASE (BEAKER) (test ltii=378) 96 U/L 40-150 AST (SGOT) (BEAKER) (test amvy=450) 31 U/L 5-34 ALT (SGPT) (BEAKER) (test pemb=487) 11 U/L 6-55 BASIC METABOLIC [id number] 04:20:00 Test Item Value Reference Range Comments SODIUM (BEAKER) (test 134 meq/L 136-145 nbxt=945) POTASSIUM (BEAKER) (test 5.0 meq/L 3.5-5.1 jkum=620) CHLORIDE (BEAKER) (test 105 meq/L 98-107 qeig=129) CO2 (BEAKER) (test 18 meq/L 22-29 chpf=165) BLOOD UREA NITROGEN 45 mg/dL 7-21 (BEAKER) (test sfcu=573) CREATININE (BEAKER) (test 1.91 mg/dL 0.57-1.25 akfq=815) GLUCOSE RANDOM (BEAKER) 247 mg/dL 70-105 (test ugla=671) CALCIUM (BEAKER) (test 7.9 mg/dL 8.4-10.2 tgdb=516) EGFR (BEAKER) (test 27 mL/min/1.73 sq m ESTIMATED GFR IS NOT yecj=6888) ACCURATE CREATININE CLEARANCE IN PREDICTING GLOMERULAR FILTRATION RATE. ESTIMATED GFR IS NOT APPLICABLE FOR DIALYSIS PATIENTS. OXYGEN SATURATION, [id number] 04:18:00 Test Item Value Reference Range Comments O2 SATURATION (MEASURED) (BEAKER) (test etax=1210) 68.0 % LACTIC ACID, ARTERIAL, WHOLE [id number] 04:12:00 Test Item Value Reference Range Comments LACTATE BLOOD ARTERIAL (2) (BEAKER) (test 1.0 mmol/L 0.5-2.2 tlhd=2287) Effective 08/02/2015: Units/Reference Range ChangeNew: 0.5-2.2 mmol/L Previous: 5 -20 mg/dLCBC W/PLT COUNT & AUTO [id number] 04:00:00 Test Item Value Reference Range Comments WHITE BLOOD CELL COUNT (BEAKER) (test yksd=742) 12.0 K/ L 3.5-10.5 RED BLOOD CELL COUNT (BEAKER) (test pauw=024) 3.32 M/ L 3.93-5.22 HEMOGLOBIN (BEAKER) (test tfue=180) 8.8 GM/DL 11.2-15.7 HEMATOCRIT (BEAKER) (test htaw=109) 28.3 % 34.1-44.9 MEAN CORPUSCULAR VOLUME (BEAKER) (test fmvy=073) 85.2 fL 79.4-94.8 MEAN CORPUSCULAR HEMOGLOBIN (BEAKER) (test 26.5 pg 25.6-32.2 ursp=081) MEAN CORPUSCULAR HEMOGLOBIN CONC (BEAKER) (test 31.1 GM/DL 32.2-35.5 ayin=858) RED CELL DISTRIBUTION WIDTH (BEAKER) (test 15.0 % 11.7-14.4 csft=338) PLATELET COUNT (BEAKER) (test qqfp=537) 157 K/CU MM 150-450 MEAN PLATELET VOLUME (BEAKER) (test xswm=825) 10.7 fL 9.4-12.3 NUCLEATED RED BLOOD CELLS (BEAKER) (test 0 /100 WBC 0-0 cuor=502) NEUTROPHILS RELATIVE PERCENT (BEAKER) (test 91 % netp=001) LYMPHOCYTES RELATIVE PERCENT (BEAKER) (test 4 % lbtv=573) MONOCYTES RELATIVE PERCENT (BEAKER) (test 4 % lybp=901) EOSINOPHILS RELATIVE PERCENT (BEAKER) (test 0 % yhbt=814) BASOPHILS RELATIVE PERCENT (BEAKER) (test 0 % qfrh=432) NEUTROPHILS ABSOLUTE COUNT (BEAKER) (test 10.95 K/ L 1.56-6.13 szvh=875) LYMPHOCYTES ABSOLUTE COUNT (BEAKER) (test 0.52 K/ L 1.18-3.74 hsys=974) MONOCYTES ABSOLUTE COUNT (BEAKER) (test 0.42 K/ L 0.24-0.36 eemw=371) EOSINOPHILS ABSOLUTE COUNT (BEAKER) (test 0.01 K/ L 0.04-0.36 rsiq=054) BASOPHILS ABSOLUTE COUNT (BEAKER) (test 0.05 K/ L 0.01-0.08 hlsl=100) IMMATURE GRANULOCYTES-RELATIVE PERCENT (BEAKER) 0 % 0-1 (test bhcl=1726) BLOOD GAS, [id number] 00:06:00 Test Item Value Reference Range Comments PH ARTERIAL (BEAKER) (test pves=939) 7.26 7.35-7.45 PCO2 ARTERIAL (BEAKER) (test jfsk=058) 52 mmHg 35-45 PO2 ARTERIAL (BEAKER) (test huzb=177) 88 mmHg 80-90 O2 SATURATION ARTERIAL (BEAKER) (test urqr=652) 95.7 % 96.0-97.0 HCO3 ARTERIAL (BEAKER) (test zeef=852) 23 mmol/L 21-29 BASE EXCESS ARTERIAL (BEAKER) (test lboo=077) -4.0 mmol/L -2.0-3.0 PATIENT TEMPERATURE (BEAKER) (test ojxg=4998) 36.4 C FIO2 (BEAKER) (test zwbf=7022) 40.0 % [id number] 18:55:00 Test Item Value Reference Range Comments PHOSPHORUS (BEAKER) (test aysu=419) 4.8 mg/dL 2.3-4.7 [id number] 18:55:00 Test Item Value Reference Range Comments MAGNESIUM (BEAKER) (test mrab=796) 2.3 mg/dL 1.6-2.6 BASIC METABOLIC [id number] 18:55:00 Test Item Value Reference Range Comments SODIUM (BEAKER) (test 136 meq/L 136-145 dlse=759) POTASSIUM (BEAKER) (test 4.5 meq/L 3.5-5.1 pmye=445) CHLORIDE (BEAKER) (test 108 meq/L 98-107 lsow=233) CO2 (BEAKER) (test 21 meq/L 22-29 knch=470) BLOOD UREA NITROGEN 39 mg/dL 7-21 (BEAKER) (test wnie=029) CREATININE (BEAKER) (test 1.58 mg/dL 0.57-1.25 cvhg=374) GLUCOSE RANDOM (BEAKER) 172 mg/dL 70-105 (test aflr=882) CALCIUM (BEAKER) (test 7.9 mg/dL 8.4-10.2 rgbm=666) EGFR (BEAKER) (test 33 mL/min/1.73 sq m ESTIMATED GFR IS NOT ckyh=2334) ACCURATE CREATININE CLEARANCE IN PREDICTING GLOMERULAR FILTRATION RATE. ESTIMATED GFR IS NOT APPLICABLE FOR DIALYSIS PATIENTS. LACTIC ACID, ARTERIAL, WHOLE [id number] 18:53:00 Test Item Value Reference Range Comments LACTATE BLOOD ARTERIAL (2) 0.9 mmol/L 0.5-2.2 Specimen slightly hemolyzed (BEAKER) (test ujvw=8017) Effective 08/02/2015: Units/Reference Range ChangeNew: 0.5-2.2 mmol/L Previous: 5 -20 mg/dLRAD, CHEST, 1 VIEW, NON [id number] 18:44:00Reason for exam:-> postop cardiacShould this be [...] MDReport Verified Date/Time: 2017 18:44:30 Reading Location: [address] Consult Reading Room Electronically signed by: LISA LI M.D. on05/20/2017 06:44 PMCBC W/PLT COUNT & AUTO [id number] 18:38:00 Test Item Value Reference Range Comments WHITE BLOOD CELL COUNT (BEAKER) (test vpka=167) 8.7 K/ L 3.5-10.5 RED BLOOD CELL COUNT (BEAKER) (test cvzi=408) 3.33 M/ L 3.93-5.22 HEMOGLOBIN (BEAKER) (test vscx=390) 8.7 GM/DL 11.2-15.7 HEMATOCRIT (BEAKER) (test pmgh=804) 27.9 % 34.1-44.9 MEAN CORPUSCULAR VOLUME (BEAKER) (test bvbr=401) 83.8 fL 79.4-94.8 MEAN CORPUSCULAR HEMOGLOBIN (BEAKER) (test 26.1 pg 25.6-32.2 zudj=936) MEAN CORPUSCULAR HEMOGLOBIN CONC (BEAKER) (test 31.2 GM/DL 32.2-35.5 lrmt=395) RED CELL DISTRIBUTION WIDTH (BEAKER) (test 14.9 % 11.7-14.4 gaan=898) PLATELET COUNT (BEAKER) (test iyoi=079) 137 K/CU MM 150-450 MEAN PLATELET VOLUME (BEAKER) (test ubik=502) 10.2 fL 9.4-12.3 NUCLEATED RED BLOOD CELLS (BEAKER) (test 0 /100 WBC 0-0 resq=861) NEUTROPHILS RELATIVE PERCENT (BEAKER) (test 79 % fqhu=659) LYMPHOCYTES RELATIVE PERCENT (BEAKER) (test 12 % avpu=371) MONOCYTES RELATIVE PERCENT (BEAKER) (test 7 % jicv=338) EOSINOPHILS RELATIVE PERCENT (BEAKER) (test 1 % ghth=780) BASOPHILS RELATIVE PERCENT (BEAKER) (test 1 % hfoa=982) NEUTROPHILS ABSOLUTE COUNT (BEAKER) (test 6.83 K/ L 1.56-6.13 sxoj=419) LYMPHOCYTES ABSOLUTE COUNT (BEAKER) (test 1.06 K/ L 1.18-3.74 cjdb=530) MONOCYTES ABSOLUTE COUNT (BEAKER) (test 0.56 K/ L 0.24-0.36 bcho=823) EOSINOPHILS ABSOLUTE COUNT (BEAKER) (test 0.12 K/ L 0.04-0.36 ajmo=079) BASOPHILS ABSOLUTE COUNT (BEAKER) (test 0.04 K/ L 0.01-0.08 cpvt=522) IMMATURE GRANULOCYTES-RELATIVE PERCENT (BEAKER) 1 % 0-1 (test ualk=6931) OXYGEN SATURATION, [id number] 18:36:00 Test Item Value Reference Range Comments O2 SATURATION (MEASURED) (BEAKER) (test usjc=9300) 72.5 % From distal port of IJ central venous catheterSODIUM NA-STAT [id number] 18:30 :00 Test Item Value Reference Range Comments SODIUM (BEAKER) (test wpiz=057) 132 meq/L 135-148 HGB/HCT (H&H) - STAT [id number] 18:30:00 Test Item Value Reference Range Comments HEMOGLOBIN (BEAKER) (test tjhc=170) 9.4 g/dL 12.0-15.0 HEMATOCRIT (BEAKER) (test mbdk=937) 28.0 % 36.0-45.0 GLUCOSE-STAT [id number] 18:30:00 Test Item Value Reference Range Comments GLUCOSE RANDOM (BEAKER) (test wyus=160) 159 mg/dL 70-110 BLOOD GAS, [id number] 18:30:00 Test Item Value Reference Range Comments PH ARTERIAL (BEAKER) (test fwqr=558) 7.34 7.35-7.45 PCO2 ARTERIAL (BEAKER) (test wuyk=511) 43 mmHg 35-45 PO2 ARTERIAL (BEAKER) (test htik=808) 76 mmHg 80-90 O2 SATURATION ARTERIAL (BEAKER) (test icgp=623) 94.9 % 96.0-97.0 HCO3 ARTERIAL (BEAKER) (test lwqv=439) 23 mmol/L 21-29 BASE EXCESS ARTERIAL (BEAKER) (test xuhb=812) -2.6 mmol/L -2.0-3.0 PATIENT TEMPERATURE (BEAKER) (test kftq=4550) 36.4 C FIO2 (BEAKER) (test fywc=0159) 60.0 % CALCIUM, [id number] 18:30:00 Test Item Value Reference Range Comments CALCIUM IONIZED (BEAKER) (test vxrv=728) 0.94 mmol/L 1.12-1.27 PH, BLOOD (BEAKER) (test mpxq=8819) 7.34 POTASSIUM-STAT [id number] 18:28:00 Test Item Value Reference Range Comments POTASSIUM (BEAKER) (test ixnw=894) 4.4 meq/L 3.6-5.5 THROMBOELASTOGRAPH ([id number] 18:11:00 Test Item Value Reference Range Comments TEG ACTIVATED CLOTTING TIME (BEAKER) (test 6.7 minutes 4.0-7.0 djiq=1007) TEG FIBRINOGEN ACTIVITY (BEAKER) (test 66.6 degrees 61.0-73.0 iprr=2063) TEG PLT. AGGREGATION (BEAKER) (test zsvi=4942) 62.4 MM 55.0-65.0 TEG FIBRINOLYSIS (BEAKER) (test jigu=2018) 0.0 % 0.0-5.0 TGH ACTIVATED CLOTTING TIME (BEAKER) (test 6.7 minutes 4.0-7.0 sicl=6390) [facility] FIBRINOGEN ACTIVITY ([facility]) (test 69.0 degrees 61.0-73.0 comp=1597) TGH PLT. AGGREGATION ([facility]) (test yfyz=1060) 62.8 MM 55.0-65.0 TGH FIBRINOLYSIS ([facility]) (test eirw=5972) 0.0 % 0.0-5.0 [id number] 17:53:00 Test Item Value Reference Range Comments ACTIVATED CLOTTING TIME 103 sec TESTED AT [address] [facility] (test yqli=952) [place] [address] [id number] 17:53:00 Test Item Value Reference Range Comments ACTIVATED CLOTTING TIME 466 sec TESTED AT [address] ([facility]) (test xbwz=404) [place] [address] [id number] 17:53:00 Test Item Value Reference Range Comments ACTIVATED CLOTTING TIME 543 sec TESTED AT [address] ([facility]) (test uqnj=562) [place] [address] [id number] 17:53:00 Test Item Value Reference Range Comments ACTIVATED CLOTTING TIME 549 sec TESTED AT [address] ([facility]) (test padz=668) [place] [address] [id number] 17:53:00 Test Item Value Reference Range Comments ACTIVATED CLOTTING TIME 632 sec TESTED AT [address] [facility] (test wygh=668) [place] [address] [id number] 17:53:00 Test Item Value Reference Range Comments ACTIVATED CLOTTING TIME 494 sec TESTED AT [address] [facility]) (test seoy=199) [place] [address] [id number] 17:53:00 Test Item Value Reference Range Comments ACTIVATED CLOTTING TIME 587 sec TESTED AT [address] ([facility]) (test hcyb=552) [place] [address] [id number] 17:53:00 Test Item Value Reference Range Comments ACTIVATED CLOTTING TIME 626 sec TESTED AT [address] [facility]) (test fpaw=421) [place] [address] [id number] 17:52:00 Test Item Value Reference Range Comments ACTIVATED CLOTTING TIME 808 sec TESTED AT [facility] [address] (BEAKER) (test ehyr=201) [place] [address] [id number] 16:54:00 Test Item Value Reference Range Comments PARTIAL THROMBOPLASTIN TIME (BEAKER) (test 40.2 seconds 22.5-36.0 bjwm=800) [id number] 16:53:00 Test Item Value Reference Range Comments FIBRINOGEN LEVEL (BEAKER) (test pvqe=689) 306 mg/dl 225-434 PROTHROMBIN [id number] 16:50:00 Test Item Value Reference Range Comments PROTIME (BEAKER) (test zomx=360) 19.6 seconds 11.7-14.7 INR (BEAKER) (test vllu=241) 1.7 <=5.9 RECOMMENDED COUMADIN/WARFARIN INR THERAPY RANGESSTANDARD DOSE: 2.0 - 3.0 Includes: PROPHYLAXIS forvenous thrombosis, systemic embolization; TREATMENT for venous thrombosis and/or pulmonary embolus.HIGH RISK: Target INR is 2.5-3.5 for patients with mechanical heart valves.PLATELET [id number] 16:45:00 Test Item Value Reference Range Comments PLATELET COUNT (BEAKER) (test ianz=119) 136 K/CU MM 150-450 POTASSIUM-STAT [id number] 16:15:00 Test Item Value Reference Range Comments POTASSIUM (BEAKER) (test kmqy=392) 4.9 meq/L 3.6-5.5 BLOOD GAS, [id number] 16:15:00 Test Item Value Reference Range Comments PH ARTERIAL (BEAKER) (test jtsl=204) 7.39 7.35-7.45 PCO2 ARTERIAL (BEAKER) (test cbpj=888) 42 mmHg 35-45 PO2 ARTERIAL (BEAKER) (test vvat=517) 201 mmHg 80-90 O2 SATURATION ARTERIAL (BEAKER) (test zqny=617) 99.4 % 96.0-97.0 HCO3 ARTERIAL (BEAKER) (test nuoh=895) 25 mmol/L 21-29 BASE EXCESS ARTERIAL (BEAKER) (test dwja=852) -0.3 mmol/L -2.0-3.0 PATIENT TEMPERATURE (BEAKER) (test hysv=1138) 36.3 C FIO2 (BEAKER) (test krix=4902) 100.0 % SODIUM NA-STAT [id number] 16:15:00 Test Item Value Reference Range Comments SODIUM (BEAKER) (test mifk=931) 131 meq/L 135-148 GLUCOSE-STAT [id number] 16:15:00 Test Item Value Reference Range Comments GLUCOSE RANDOM (BEAKER) (test rxov=825) 198 mg/dL 70-110 HGB/HCT (H&H) - STAT [id number] 16:15:00 Test Item Value Reference Range Comments HEMOGLOBIN (BEAKER) (test rsmi=362) 7.5 g/dL 12.0-15.0 HEMATOCRIT (BEAKER) (test hyim=390) 22.0 % 36.0-45.0 CALCIUM, [id number] 16:14:00 Test Item Value Reference Range Comments CALCIUM IONIZED (BEAKER) (test zlxj=546) 0.91 mmol/L 1.12-1.27 PH, BLOOD (BEAKER) (test mzrt=1975) 7.39 BLOOD GAS, [id number] 15:39:00 Test Item Value Reference Range Comments PH ARTERIAL (BEAKER) (test peuf=256) 7.44 7.35-7.45 PCO2 ARTERIAL (BEAKER) (test akvr=596) 38 mmHg 35-45 PO2 ARTERIAL (BEAKER) (test zlke=402) 298 mmHg 80-90 O2 SATURATION ARTERIAL (BEAKER) (test vsup=844) 99.7 % 96.0-97.0 HCO3 ARTERIAL (BEAKER) (test rydi=144) 25 mmol/L 21-29 BASE EXCESS ARTERIAL (BEAKER) (test kbhq=345) 0.7 mmol/L -2.0-3.0 PATIENT TEMPERATURE (BEAKER) (test fesm=9803) 36.2 C FIO2 (BEAKER) (test nrtz=0781) 70.0 % SODIUM NA-STAT [id number] 15:39:00 Test Item Value Reference Range Comments SODIUM (BEAKER) (test ufuy=566) 131 meq/L 135-148 GLUCOSE-STAT [id number] 15:39:00 Test Item Value Reference Range Comments GLUCOSE RANDOM (BEAKER) (test acsh=054) 186 mg/dL 70-110 HGB/HCT (H&H) - STAT [id number] 15:39:00 Test Item Value Reference Range Comments HEMOGLOBIN (BEAKER) (test sgnx=540) 7.5 g/dL 12.0-15.0 HEMATOCRIT (BEAKER) (test kmnj=916) 22.0 % 36.0-45.0 POTASSIUM-STAT [id number] 15:38:00 Test Item Value Reference Range Comments POTASSIUM (BEAKER) (test aumn=930) 5.3 meq/L 3.6-5.5 BLOOD GAS, [id number] 15:24:00 Test Item Value Reference Range Comments PH ARTERIAL (BEAKER) (test yvbh=218) 7.47 7.35-7.45 PCO2 ARTERIAL (BEAKER) (test ymdi=800) 37 mmHg 35-45 PO2 ARTERIAL (BEAKER) (test ynfs=014) 334 mmHg 80-90 O2 SATURATION ARTERIAL (BEAKER) (test vjpp=639) 99.8 % 96.0-97.0 HCO3 ARTERIAL (BEAKER) (test kunw=707) 26 mmol/L 21-29 BASE EXCESS ARTERIAL (BEAKER) (test dmxw=477) 2.2 mmol/L -2.0-3.0 PATIENT TEMPERATURE (BEAKER) (test evms=4699) 36.2 C FIO2 (BEAKER) (test gctb=9794) 70.0 % SODIUM NA-STAT [id number] 15:24:00 Test Item Value Reference Range Comments SODIUM (BEAKER) (test yblv=661) 130 meq/L 135-148 GLUCOSE-STAT [id number] 15:24:00 Test Item Value Reference Range Comments GLUCOSE RANDOM (BEAKER) (test ffei=858) 189 mg/dL 70-110 HGB/HCT (H&H) - STAT [id number] 15:24:00 Test Item Value Reference Range Comments HEMOGLOBIN (BEAKER) (test aflj=459) 6.7 g/dL 12.0-15.0 HEMATOCRIT (BEAKER) (test yuoy=453) 20.0 % 36.0-45.0 POTASSIUM-STAT [id number] 15:23:00 Test Item Value Reference Range Comments POTASSIUM (BEAKER) (test fjzh=595) 5.4 meq/L 3.6-5.5 BLOOD GAS, [id number] 15:07:00 Test Item Value Reference Range Comments PH ARTERIAL (BEAKER) (test nohc=971) 7.43 7.35-7.45 PCO2 ARTERIAL (BEAKER) (test vsgj=724) 41 mmHg 35-45 PO2 ARTERIAL (BEAKER) (test tjns=356) 365 mmHg 80-90 O2 SATURATION ARTERIAL (BEAKER) (test katw=370) 99.8 % 96.0-97.0 HCO3 ARTERIAL (BEAKER) (test oxza=410) 27 mmol/L 21-29 BASE EXCESS ARTERIAL (BEAKER) (test upvj=266) 1.9 mmol/L -2.0-3.0 PATIENT TEMPERATURE (BEAKER) (test eqfn=2370) 35.8 C FIO2 (BEAKER) (test yzvk=1569) 70.0 % SODIUM NA-STAT [id number] 15:07:00 Test Item Value Reference Range Comments SODIUM (BEAKER) (test fjqx=121) 129 meq/L 135-148 GLUCOSE-STAT [id number] 15:07:00 Test Item Value Reference Range Comments GLUCOSE RANDOM (BEAKER) (test sopb=610) 172 mg/dL 70-110 HGB/HCT (H&H) - STAT [id number] 15:07:00 Test Item Value Reference Range Comments HEMOGLOBIN (BEAKER) (test qdas=667) 7.1 g/dL 12.0-15.0 HEMATOCRIT (BEAKER) (test netg=534) 21.0 % 36.0-45.0 POTASSIUM-STAT [id number] 15:04:00 Test Item Value Reference Range Comments POTASSIUM (BEAKER) (test goxh=784) 5.0 meq/L 3.6-5.5 BLOOD GAS, [id number] 14:21:00 Test Item Value Reference Range Comments PH ARTERIAL (BEAKER) (test lunk=512) 7.43 7.35-7.45 PCO2 ARTERIAL (BEAKER) (test mnmq=614) 38 mmHg 35-45 PO2 ARTERIAL (BEAKER) (test adjr=773) 360 mmHg 80-90 O2 SATURATION ARTERIAL (BEAKER) (test dyqh=904) 99.8 % 96.0-97.0 HCO3 ARTERIAL (BEAKER) (test gutb=010) 27 mmol/L 21-29 BASE EXCESS ARTERIAL (BEAKER) (test gnxx=489) 0.3 mmol/L -2.0-3.0 PATIENT TEMPERATURE (BEAKER) (test jbfv=7877) 28.9 C FIO2 (BEAKER) (test tfcr=9958) 70.0 % SODIUM NA-STAT [id number] 14:21:00 Test Item Value Reference Range Comments SODIUM (BEAKER) (test qntj=718) 133 meq/L 135-148 GLUCOSE-STAT [id number] 14:21:00 Test Item Value Reference Range Comments GLUCOSE RANDOM (BEAKER) (test slot=354) 160 mg/dL 70-110 HGB/HCT (H&H) - STAT [id number] 14:21:00 Test Item Value Reference Range Comments HEMOGLOBIN (BEAKER) (test ckdw=156) 7.5 g/dL 12.0-15.0 HEMATOCRIT (BEAKER) (test qmcu=341) 22.0 % 36.0-45.0 POTASSIUM-STAT [id number] 14:20:00 Test Item Value Reference Range Comments POTASSIUM (BEAKER) (test ajyz=407) 4.7 meq/L 3.6-5.5 BLOOD GAS, [id number] 13:58:00 Test Item Value Reference Range Comments PH ARTERIAL (BEAKER) (test wxul=091) 7.43 7.35-7.45 PCO2 ARTERIAL (BEAKER) (test dpfj=682) 37 mmHg 35-45 PO2 ARTERIAL (BEAKER) (test rben=006) 448 mmHg 80-90 O2 SATURATION ARTERIAL (BEAKER) (test qhxu=522) 99.9 % 96.0-97.0 HCO3 ARTERIAL (BEAKER) (test lger=893) 26 mmol/L 21-29 BASE EXCESS ARTERIAL (BEAKER) (test nvhf=866) -0.1 mmol/L -2.0-3.0 PATIENT TEMPERATURE (BEAKER) (test wjfj=2018) 29.2 C FIO2 (BEAKER) (test fbzy=0545) 80.0 % SODIUM NA-STAT [id number] 13:58:00 Test Item Value Reference Range Comments SODIUM (BEAKER) (test azqm=062) 132 meq/L 135-148 GLUCOSE-STAT [id number] 13:58:00 Test Item Value Reference Range Comments GLUCOSE RANDOM (BEAKER) (test ezjm=360) 166 mg/dL 70-110 HGB/HCT (H&H) - STAT [id number] 13:58:00 Test Item Value Reference Range Comments HEMOGLOBIN (BEAKER) (test tqix=230) 7.5 g/dL 12.0-15.0 HEMATOCRIT (BEAKER) (test muyi=972) 22.0 % 36.0-45.0 POTASSIUM-STAT [id number] 13:57:00 Test Item Value Reference Range Comments POTASSIUM (BEAKER) (test aqga=853) 4.7 meq/L 3.6-5.5 BLOOD GAS, [id number] 13:35:00 Test Item Value Reference Range Comments PH ARTERIAL (BEAKER) (test vhqv=562) 7.51 7.35-7.45 PCO2 ARTERIAL (BEAKER) (test gkvd=947) 33 mmHg 35-45 PO2 ARTERIAL (BEAKER) (test uxjs=410) 453 mmHg 80-90 O2 SATURATION ARTERIAL (BEAKER) (test khfh=843) 99.9 % 96.0-97.0 HCO3 ARTERIAL (BEAKER) (test swyt=726) 28 mmol/L 21-29 BASE EXCESS ARTERIAL (BEAKER) (test dhwz=448) 2.7 mmol/L -2.0-3.0 PATIENT TEMPERATURE (BEAKER) (test aksu=6495) 29.2 C FIO2 (BEAKER) (test ehru=0760) 80.0 % GLUCOSE-STAT [id number] 13:35:00 Test Item Value Reference Range Comments GLUCOSE RANDOM (BEAKER) (test hgua=533) 130 mg/dL 70-110 HGB/HCT (H&H) - STAT [id number] 13:35:00 Test Item Value Reference Range Comments HEMOGLOBIN (BEAKER) (test qdiq=680) 6.7 g/dL 12.0-15.0 HEMATOCRIT (BEAKER) (test nsyb=546) 20.0 % 36.0-45.0 SODIUM NA-STAT [id number] 13:35:00 Test Item Value Reference Range Comments SODIUM (BEAKER) (test phab=659) 133 meq/L 135-148 POTASSIUM-STAT [id number] 13:34:00 Test Item Value Reference Range Comments POTASSIUM (BEAKER) (test sukf=171) 4.2 meq/L 3.6-5.5 BLOOD GAS, [id number] 13:16:00 Test Item Value Reference Range Comments PH ARTERIAL (BEAKER) (test hgaj=511) 7.42 7.35-7.45 PCO2 ARTERIAL (BEAKER) (test lpbe=911) 34 mmHg 35-45 PO2 ARTERIAL (BEAKER) (test qopl=692) 375 mmHg 80-90 O2 SATURATION ARTERIAL (BEAKER) (test fpcz=943) 99.8 % 96.0-97.0 HCO3 ARTERIAL (BEAKER) (test huaz=230) 23 mmol/L 21-29 BASE EXCESS ARTERIAL (BEAKER) (test ybnt=009) -2.5 mmol/L -2.0-3.0 PATIENT TEMPERATURE (BEAKER) (test lffw=1305) 31.5 C FIO2 (BEAKER) (test rhrz=7058) 80.0 % SODIUM NA-STAT [id number] 13:16:00 Test Item Value Reference Range Comments SODIUM (BEAKER) (test vrrk=702) 133 meq/L 135-148 HGB/HCT (H&H) - STAT [id number] 13:16:00 Test Item Value Reference Range Comments HEMOGLOBIN (BEAKER) (test abwx=580) 6.3 g/dL 12.0-15.0 HEMATOCRIT (BEAKER) (test jaim=077) 19.0 % 36.0-45.0 CALCIUM, [id number] 13:15:00 Test Item Value Reference Range Comments CALCIUM IONIZED (BEAKER) (test qiob=976) 0.98 mmol/L 1.12-1.27 PH, BLOOD (BEAKER) (test sddz=0772) 7.34 BLOOD GAS, [id number] 13:15:00 Test Item Value Reference Range Comments PH VENOUS (BEAKER) (test nbsr=524) 7.39 7.32-7.42 PCO2 VENOUS (BEAKER) (test ltva=264) 38 mmHg 41-51 PO2 VENOUS (BEAKER) (test wrhh=108) 43 mmHg 25-40 O2 SATURATION VENOUS (BEAKER) (test fuws=082) 90.0 % 40.0-70.0 HCO3 VENOUS (BEAKER) (test iwwq=408) 24 mmol/L 21-29 BASE EXCESS VENOUS (BEAKER) (test ssxg=196) -2.1 mmol/L -2.0-3.0 PATIENT TEMPERATURE (BEAKER) (test mwdn=4606) 31.5 C FIO2 (BEAKER) (test qywv=0798) 80.0 % GLUCOSE-STAT [id number] 13:14:00 Test Item Value Reference Range Comments GLUCOSE RANDOM (BEAKER) (test krtt=789) 92 mg/dL 70-110 POTASSIUM-STAT [id number] 13:14:00 Test Item Value Reference Range Comments POTASSIUM (BEAKER) (test oofv=086) 3.9 meq/L 3.6-5.5 BLOOD GAS, [id number] 10:54:00 Test Item Value Reference Range Comments PH ARTERIAL (BEAKER) (test rgrt=589) 7.41 7.35-7.45 PCO2 ARTERIAL (BEAKER) (test vqfd=016) 39 mmHg 35-45 PO2 ARTERIAL (BEAKER) (test jpwd=815) 254 mmHg 80-90 O2 SATURATION ARTERIAL (BEAKER) (test pcuq=006) 99.6 % 96.0-97.0 HCO3 ARTERIAL (BEAKER) (test nsuq=246) 25 mmol/L 21-29 BASE EXCESS ARTERIAL (BEAKER) (test mvxo=191) -0.3 mmol/L -2.0-3.0 PATIENT TEMPERATURE (BEAKER) (test tnbb=4458) 35.4 C FIO2 (BEAKER) (test doaw=1464) 100.0 % HGB/HCT (H&H) - STAT [id number] 10:54:00 Test Item Value Reference Range Comments HEMOGLOBIN (BEAKER) (test ijzs=546) 9.3 g/dL 12.0-15.0 HEMATOCRIT (BEAKER) (test wnsl=061) 27.0 % 36.0-45.0 SODIUM NA-STAT [id number] 10:54:00 Test Item Value Reference Range Comments SODIUM (BEAKER) (test vhot=794) 132 meq/L 135-148 GLUCOSE-STAT [id number] 10:52:00 Test Item Value Reference Range Comments GLUCOSE RANDOM (BEAKER) (test lpbd=020) 94 mg/dL 70-110 POTASSIUM-STAT [id number] 10:52:00 Test Item Value Reference Range Comments POTASSIUM (BEAKER) (test onze=461) 4.0 meq/L 3.6-5.5 HEMOGLOBIN [id number] 09:50:00 Test Item Value Reference Range Comments HEMOGLOBIN A1C (BEAKER) (test lhbc=057) 10.6 % 4.3-6.1 PLATELET AGGREGATION: FUNCTION [id number] 08:27:00 Test Item Value Reference Range Comments WEAK ADP RESULT(BEAKER) (test 63 % 60-91 dewb=7829) PLATELET FUNCTION SCREEN 60-100% indicates normal INTERP (BEAKER) (test platelet function cmsn=1851) [id number]-[id number] (BEAKER) Toshia Post MD (electronic (test qjwv=2913) signature) PLATELET COUNT AGG (BEAKER) 198 K/CU MM 150-450 (test pmrb=2759) for patients on clopidogrel in past two weeksPOCT-GLUCOSE [id number] 08:11: 00 Test Item Value Reference Range Comments POC-GLUCOSE METER (BEAKER) 116 mg/dL 70-110 TESTED AT [facility] [address] [place] [address] (test vmjt=2183) [facility] [address] [id number] 07:10:00 Test Item Value Reference Range Comments PHOSPHORUS (BEAKER) (test avjt=081) 4.5 mg/dL 2.3-4.7 [id number] 07:10:00 Test Item Value Reference Range Comments MAGNESIUM (BEAKER) (test navr=367) 2.1 mg/dL 1.6-2.6 BASIC METABOLIC [id number] 07:10:00 Test Item Value Reference Range Comments SODIUM (BEAKER) (test 135 meq/L 136-145 evhe=242) POTASSIUM (BEAKER) (test 4.4 meq/L 3.5-5.1 egeu=825) CHLORIDE (BEAKER) (test 106 meq/L 98-107 orza=860) CO2 (BEAKER) (test 23 meq/L 22-29 jyga=527) BLOOD UREA NITROGEN 40 mg/dL 7-21 (BEAKER) (test czbz=148) CREATININE (BEAKER) (test 1.67 mg/dL 0.57-1.25 thjg=015) GLUCOSE RANDOM (BEAKER) 107 mg/dL 70-105 (test ojiw=082) CALCIUM (BEAKER) (test 8.3 mg/dL 8.4-10.2 qkoj=102) EGFR (BEAKER) (test 31 mL/min/1.73 sq m ESTIMATED GFR IS NOT bfzr=2199) ACCURATE CREATININE CLEARANCE IN PREDICTING GLOMERULAR FILTRATION RATE. ESTIMATED GFR IS NOT APPLICABLE FOR DIALYSIS PATIENTS. B-TYPE NATRIURETIC FACTOR (BNP)2017-05-20 06:56:00 Test Item Value Reference Range Comments B-TYPE NATRIURETIC PEPTIDE (BEAKER) (test 552 pg/mL 0-100 mocv=800) CBC W/PLT COUNT & AUTO [id number] 06:46:00 Test Item Value Reference Range Comments WHITE BLOOD CELL COUNT (BEAKER) (test uard=921) 6.2 K/ L 3.5-10.5 RED BLOOD CELL COUNT (BEAKER) (test htzc=419) 3.56 M/ L 3.93-5.22 HEMOGLOBIN (BEAKER) (test rxxs=190) 9.1 GM/DL 11.2-15.7 HEMATOCRIT (BEAKER) (test ogsp=886) 29.5 % 34.1-44.9 MEAN CORPUSCULAR VOLUME (BEAKER) (test zgor=752) 82.9 fL 79.4-94.8 MEAN CORPUSCULAR HEMOGLOBIN (BEAKER) (test 25.6 pg 25.6-32.2 zmvr=105) MEAN CORPUSCULAR HEMOGLOBIN CONC (BEAKER) (test 30.8 GM/DL 32.2-35.5 vscg=024) RED CELL DISTRIBUTION WIDTH (BEAKER) (test 14.4 % 11.7-14.4 slvs=297) PLATELET COUNT (BEAKER) (test zylg=142) 222 K/CU MM 150-450 MEAN PLATELET VOLUME (BEAKER) (test olpk=505) 10.5 fL 9.4-12.3 NUCLEATED RED BLOOD CELLS (BEAKER) (test 0 /100 WBC 0-0 shyj=834) NEUTROPHILS RELATIVE PERCENT (BEAKER) (test 47 % sfvx=148) LYMPHOCYTES RELATIVE PERCENT (BEAKER) (test 39 % dfof=155) MONOCYTES RELATIVE PERCENT (BEAKER) (test 8 % wbjc=581) EOSINOPHILS RELATIVE PERCENT (BEAKER) (test 5 % vrti=550) BASOPHILS RELATIVE PERCENT (BEAKER) (test 1 % anqo=468) NEUTROPHILS ABSOLUTE COUNT (BEAKER) (test 2.90 K/ L 1.56-6.13 lfge=566) LYMPHOCYTES ABSOLUTE COUNT (BEAKER) (test 2.37 K/ L 1.18-3.74 gnjz=671) MONOCYTES ABSOLUTE COUNT (BEAKER) (test 0.49 K/ L 0.24-0.36 mmei=879) EOSINOPHILS ABSOLUTE COUNT (BEAKER) (test 0.30 K/ L 0.04-0.36 bxmy=378) BASOPHILS ABSOLUTE COUNT (BEAKER) (test 0.08 K/ L 0.01-0.08 sktq=463) IMMATURE GRANULOCYTES-RELATIVE PERCENT (BEAKER) 0 % 0-1 (test coub=9190) CALCIUM, [id number] 06:40:00 Test Item Value Reference Range Comments CALCIUM IONIZED (BEAKER) (test jblj=454) 1.06 mmol/L 1.12-1.27 PH, BLOOD (BEAKER) (test jstf=8244) 7.39 POCT-GLUCOSE [id number] 23:22:00 Test Item Value Reference Range Comments POC-GLUCOSE METER (BEAKER) 165 mg/dL 70-110 TESTED AT [facility] [address] [facility] (test xuik=2761) [facility] [address] URINE PROTEIN ELECTROPHORESIS, [id number] 18:02:00 Test Item Value Reference Range Comments PROTEIN, URINE (BEAKER) (test 305 mg/dL 0-14 upyr=2096) ALBUMIN URINE ELP (BEAKER) 70.9 % (test kdql=1581) GAMMA GLOBULIN URINE (BEAKER) 29.1 % (test rdov=4767) UPEP, ID-438 (BEAKER) (test No monoclonal bands detected. jgzl=7758) [id number] (BEAKER) Rocio Galindo MD (test qbqn=3282) (electronic signature) PROTEIN ELECTROPHORESIS, [id number] 17:57:00 Test Item Value Reference Range Comments ALBUMIN FRACTION (BEAKER) 2.5 g/dL 3.5-5.5 (test ucnd=476) ALPHA 1 FRACTION (BEAKER) 0.3 g/dL 0.2-0.4 (test qvhx=139) ALPHA 2 FRACTION (BEAKER) 0.9 g/dL 0.5-0.9 (test fjpm=380) BETA FRACTION (BEAKER) (test 0.8 g/dL 0.6-1.1 lzvt=501) GAMMA GLOBULIN FRACTION 1.0 g/dL 0.7-1.7 (BEAKER) (test jkcq=957) INTERPRETATION-119 (BEAKER) Decreased albumin with (test kkcd=7134) concurrent relative increases in all globulin fractions. No monoclonal bands detected. [id number] (BEAKER) Rocio Galindo MD (test lnjw=2244) (electronic signature) PROTEIN TOTAL SERUM, SPEP 5.5 gm/dL 6.0-8.3 (BEAKER) (test geku=5446) POCT-GLUCOSE [id number] 17:15:00 Test Item Value Reference Range Comments POC-GLUCOSE METER (BEAKER) 209 mg/dL 70-110 TESTED AT [facility] [address] [facility] (test qnut=1026) [facility] [address] BLOOD GAS, [id number] 15:54:00 Test Item Value Reference Range Comments PH ARTERIAL (BEAKER) (test fzmt=483) 7.45 7.35-7.45 PCO2 ARTERIAL (BEAKER) (test tbiw=288) 38 mmHg 35-45 PO2 ARTERIAL (BEAKER) (test zfxr=099) 69 mmHg 80-90 O2 SATURATION ARTERIAL (BEAKER) (test hevs=549) 94.5 % 96.0-97.0 HCO3 ARTERIAL (BEAKER) (test wudz=333) 25 mmol/L 21-29 BASE EXCESS ARTERIAL (BEAKER) (test pvil=588) 1.3 mmol/L -2.0-3.0 PATIENT TEMPERATURE (BEAKER) (test jalu=4718) 37.0 C FIO2 (BEAKER) (test cyee=3118) 36.0 % RAD, CHEST, 1 VIEW, NON [id number] 14:07:00Reason for exam:->SOB, hypoxemiaShould this be performed [...] Cespedes MDReport Verified Date/Time: 2017 14:07:07 Reading Location:[facility] [id number] Consult Reading Room POCT- GLUCOSE [id number] 11:26:00 Test Item Value Reference Range Comments POC-GLUCOSE METER (BEAKER) 262 mg/dL 70-110 TESTED AT [address] (test ujuj=8465) [facility] [address] POCT-GLUCOSE [id number] 07:37:00 Test Item Value Reference Range Comments POC-GLUCOSE METER (BEAKER) 170 mg/dL 70-110 TESTED AT [address] (test rnpb=7387) [facility] [address] CALCIUM, [id number] 06:06:00 Test Item Value Reference Range Comments CALCIUM IONIZED (BEAKER) (test psdp=680) 1.05 mmol/L 1.12-1.27 PH, BLOOD (BEAKER) (test wlvd=7222) 7.41 [id number] 05:38:00 Test Item Value Reference Range Comments PHOSPHORUS (BEAKER) (test mvgx=887) 3.9 mg/dL 2.3-4.7 [id number] 05:38:00 Test Item Value Reference Range Comments MAGNESIUM (BEAKER) (test vpug=593) 2.2 mg/dL 1.6-2.6 BASIC METABOLIC [id number] 05:38:00 Test Item Value Reference Range Comments SODIUM (BEAKER) (test 135 meq/L 136-145 splq=430) POTASSIUM (BEAKER) (test 4.5 meq/L 3.5-5.1 vent=125) CHLORIDE (BEAKER) (test 105 meq/L 98-107 gjap=748) CO2 (BEAKER) (test 24 meq/L 22-29 wits=664) BLOOD UREA NITROGEN 41 mg/dL 7-21 (BEAKER) (test gths=753) CREATININE (BEAKER) (test 1.74 mg/dL 0.57-1.25 igdn=827) GLUCOSE RANDOM (BEAKER) 174 mg/dL 70-105 (test xtfa=531) CALCIUM (BEAKER) (test 8.4 mg/dL 8.4-10.2 ihbo=729) EGFR (BEAKER) (test 30 mL/min/1.73 sq m ESTIMATED GFR IS NOT orrv=0787) ACCURATE CREATININE CLEARANCE IN PREDICTING GLOMERULAR FILTRATION RATE. ESTIMATED GFR IS NOT APPLICABLE FOR DIALYSIS PATIENTS. CBC W/PLT COUNT & AUTO [id number] 05:09:00 Test Item Value Reference Range Comments WHITE BLOOD CELL COUNT (BEAKER) (test inhd=682) 8.5 K/ L 3.5-10.5 RED BLOOD CELL COUNT (BEAKER) (test mlth=769) 3.54 M/ L 3.93-5.22 HEMOGLOBIN (BEAKER) (test wvvf=930) 9.1 GM/DL 11.2-15.7 HEMATOCRIT (BEAKER) (test djai=191) 29.1 % 34.1-44.9 MEAN CORPUSCULAR VOLUME (BEAKER) (test herb=320) 82.2 fL 79.4-94.8 MEAN CORPUSCULAR HEMOGLOBIN (BEAKER) (test 25.7 pg 25.6-32.2 cudc=982) MEAN CORPUSCULAR HEMOGLOBIN CONC (BEAKER) (test 31.3 GM/DL 32.2-35.5 sgje=209) RED CELL DISTRIBUTION WIDTH (BEAKER) (test 14.5 % 11.7-14.4 holm=628) PLATELET COUNT (BEAKER) (test szqb=401) 201 K/CU MM 150-450 MEAN PLATELET VOLUME (BEAKER) (test fpxi=394) 10.7 fL 9.4-12.3 NUCLEATED RED BLOOD CELLS (BEAKER) (test 0 /100 WBC 0-0 zspt=307) NEUTROPHILS RELATIVE PERCENT (BEAKER) (test 56 % gezm=337) LYMPHOCYTES RELATIVE PERCENT (BEAKER) (test 32 % elfy=173) MONOCYTES RELATIVE PERCENT (BEAKER) (test 7 % vnpa=843) EOSINOPHILS RELATIVE PERCENT (BEAKER) (test 4 % nunv=443) BASOPHILS RELATIVE PERCENT (BEAKER) (test 1 % seee=259) NEUTROPHILS ABSOLUTE COUNT (BEAKER) (test 4.80 K/ L 1.56-6.13 ycta=962) LYMPHOCYTES ABSOLUTE COUNT (BEAKER) (test 2.73 K/ L 1.18-3.74 pxqi=042) MONOCYTES ABSOLUTE COUNT (BEAKER) (test 0.62 K/ L 0.24-0.36 ruwy=166) EOSINOPHILS ABSOLUTE COUNT (BEAKER) (test 0.30 K/ L 0.04-0.36 vrva=349) BASOPHILS ABSOLUTE COUNT (BEAKER) (test 0.06 K/ L 0.01-0.08 klpp=913) IMMATURE GRANULOCYTES-RELATIVE PERCENT (BEAKER) 0 % 0-1 (test mzkd=7427) POCT-GLUCOSE [id number] 22:08:00 Test Item Value Reference Range Comments POC-GLUCOSE METER (BEAKER) 263 mg/dL 70-110 TESTED AT [address] (test njdh=9619) [place] [id number] POCT-GLUCOSE [id number] 17:20:00 Test Item Value Reference Range Comments POC-GLUCOSE METER (BEAKER) 233 mg/dL 70-110 TESTED AT [address] (test pjqt=5091) [place] [id number] POCT-GLUCOSE [id number] 08:28:00 Test Item Value Reference Range Comments POC-GLUCOSE METER (BEAKER) 154 mg/dL 70-110 TESTED AT [address] (test tydc=9231) [facility] [address] BASIC METABOLIC [id number] 06:41:00 Test Item Value Reference Range Comments SODIUM (BEAKER) (test 135 meq/L 136-145 wevg=407) POTASSIUM (BEAKER) (test 4.6 meq/L 3.5-5.1 gwer=834) CHLORIDE (BEAKER) (test 104 meq/L 98-107 xoys=434) CO2 (BEAKER) (test 23 meq/L 22-29 bjhx=005) BLOOD UREA NITROGEN 39 mg/dL 7-21 (BEAKER) (test wjsj=717) CREATININE (BEAKER) (test 1.77 mg/dL 0.57-1.25 cyyx=878) GLUCOSE RANDOM (BEAKER) 173 mg/dL 70-105 (test zzkr=139) CALCIUM (BEAKER) (test 8.6 mg/dL 8.4-10.2 zwzi=516) EGFR (BEAKER) (test 29 mL/min/1.73 sq m ESTIMATED GFR IS NOT ztgr=6236) ACCURATE CREATININE CLEARANCE IN PREDICTING GLOMERULAR FILTRATION RATE. ESTIMATED GFR IS NOT APPLICABLE FOR DIALYSIS PATIENTS. [id number] 06:35:00 Test Item Value Reference Range Comments PHOSPHORUS (BEAKER) (test dapp=459) 4.1 mg/dL 2.3-4.7 [id number] 06:35:00 Test Item Value Reference Range Comments MAGNESIUM (BEAKER) (test lnuq=951) 2.1 mg/dL 1.6-2.6 CALCIUM, [id number] 06:22:00 Test Item Value Reference Range Comments CALCIUM IONIZED (BEAKER) (test hoxg=724) 1.10 mmol/L 1.12-1.27 PH, BLOOD (BEAKER) (test fbyz=1691) 7.38 CBC W/PLT COUNT & AUTO [id number] 06:04:00 Test Item Value Reference Range Comments WHITE BLOOD CELL COUNT (BEAKER) (test blxr=025) 9.3 K/ L 3.5-10.5 RED BLOOD CELL COUNT (BEAKER) (test cmdb=548) 4.15 M/ L 3.93-5.22 HEMOGLOBIN (BEAKER) (test kzxe=066) 10.6 GM/DL 11.2-15.7 HEMATOCRIT (BEAKER) (test xbyi=980) 34.2 % 34.1-44.9 MEAN CORPUSCULAR VOLUME (BEAKER) (test kfoi=562) 82.4 fL 79.4-94.8 MEAN CORPUSCULAR HEMOGLOBIN (BEAKER) (test 25.5 pg 25.6-32.2 feyw=484) MEAN CORPUSCULAR HEMOGLOBIN CONC (BEAKER) (test 31.0 GM/DL 32.2-35.5 vpnm=572) RED CELL DISTRIBUTION WIDTH (BEAKER) (test 14.6 % 11.7-14.4 otqc=830) PLATELET COUNT (BEAKER) (test mtmk=499) 183 K/CU MM 150-450 MEAN PLATELET VOLUME (BEAKER) (test iiqg=420) 11.0 fL 9.4-12.3 NUCLEATED RED BLOOD CELLS (BEAKER) (test 0 /100 WBC 0-0 ztun=846) NEUTROPHILS RELATIVE PERCENT (BEAKER) (test 66 % izle=419) LYMPHOCYTES RELATIVE PERCENT (BEAKER) (test 24 % hext=720) MONOCYTES RELATIVE PERCENT (BEAKER) (test 7 % jodh=431) EOSINOPHILS RELATIVE PERCENT (BEAKER) (test 3 % zhbb=369) BASOPHILS RELATIVE PERCENT (BEAKER) (test 1 % hhyi=147) NEUTROPHILS ABSOLUTE COUNT (BEAKER) (test 6.15 K/ L 1.56-6.13 zork=045) LYMPHOCYTES ABSOLUTE COUNT (BEAKER) (test 2.20 K/ L 1.18-3.74 vhbh=802) MONOCYTES ABSOLUTE COUNT (BEAKER) (test 0.62 K/ L 0.24-0.36 daac=097) EOSINOPHILS ABSOLUTE COUNT (BEAKER) (test 0.24 K/ L 0.04-0.36 mhdo=966) BASOPHILS ABSOLUTE COUNT (BEAKER) (test 0.06 K/ L 0.01-0.08 kdbp=202) IMMATURE GRANULOCYTES-RELATIVE PERCENT (BEAKER) 0 % 0-1 (test mklp=4451) POCT-GLUCOSE [id number] 03:44:00 Test Item Value Reference Range Comments POC-GLUCOSE METER (BEAKER) 220 mg/dL 70-110 TESTED AT [address] (test xpiv=8979) [place] [address] POCT-GLUCOSE [id number] 18:27:00 Test Item Value Reference Range Comments POC-GLUCOSE METER (BEAKER) 256 mg/dL 70-110 TESTED AT [address] (test fwaz=4548) [place] [address] POCT-GLUCOSE [id number] 15:45:00 Test Item Value Reference Range Comments POC-GLUCOSE METER (BEAKER) 278 mg/dL 70-110 TESTED AT [address] (test ynjk=9093) [place] [address] POCT-GLUCOSE [id number] 13:22:00 Test Item Value Reference Range Comments POC-GLUCOSE METER (BEAKER) 278 mg/dL 70-110 TESTED AT [address] (test udlm=5577) [place] [address] PLATELET AGGREGATION: FUNCTION [id number] 13:18:00 Test Item Value Reference Range Comments WEAK ADP RESULT(BEAKER) (test 66 % 60-91 npki=8873) PLATELET FUNCTION SCREEN 60-100% indicates normal INTERP (BEAKER) (test platelet function goet=9613) [id number] (BEAKER) Rigoberto Duenas MD (electronic (test zphr=0352) signature) PLATELET COUNT AGG (BEAKER) 204 K/CU MM 150-450 (test vmhx=0600) POCT-GLUCOSE [id number] 08:27:00 Test Item Value Reference Range Comments POC-GLUCOSE METER (BEAKER) 189 mg/dL 70-110 TESTED AT [facility] [address] [facility] (test ckpe=2332) [place] [address] CALCIUM, [id number] 06:12:00 Test Item Value Reference Range Comments CALCIUM IONIZED (BEAKER) (test msep=922) 1.07 mmol/L 1.12-1.27 PH, BLOOD (BEAKER) (test azsh=1957) 7.36 [id number] 05:43:00 Test Item Value Reference Range Comments PHOSPHORUS (BEAKER) (test lxib=377) 3.6 mg/dL 2.3-4.7 [id number] 05:43:00 Test Item Value Reference Range Comments MAGNESIUM (BEAKER) (test rajs=807) 2.1 mg/dL 1.6-2.6 BASIC METABOLIC [id number] 05:43:00 Test Item Value Reference Range Comments SODIUM (BEAKER) (test 137 meq/L 136-145 pzkm=030) POTASSIUM (BEAKER) (test 4.7 meq/L 3.5-5.1 iaaz=660) CHLORIDE (BEAKER) (test 107 meq/L 98-107 vjnf=744) CO2 (BEAKER) (test 24 meq/L 22-29 milb=843) BLOOD UREA NITROGEN 38 mg/dL 7-21 (BEAKER) (test gaal=888) CREATININE (BEAKER) (test 1.72 mg/dL 0.57-1.25 phiw=618) GLUCOSE RANDOM (BEAKER) 198 mg/dL 70-105 (test sugw=977) CALCIUM (BEAKER) (test 8.3 mg/dL 8.4-10.2 ktin=957) EGFR (BEAKER) (test 30 mL/min/1.73 sq m ESTIMATED GFR IS NOT jlwp=0211) ACCURATE CREATININE CLEARANCE IN PREDICTING GLOMERULAR FILTRATION RATE. ESTIMATED GFR IS NOT APPLICABLE FOR DIALYSIS PATIENTS. CBC W/PLT COUNT & AUTO [id number] 05:05:00 Test Item Value Reference Range Comments WHITE BLOOD CELL COUNT (BEAKER) (test brah=799) 8.6 K/ L 3.5-10.5 RED BLOOD CELL COUNT (BEAKER) (test unzo=509) 4.20 M/ L 3.93-5.22 HEMOGLOBIN (BEAKER) (test ruqz=094) 10.7 GM/DL 11.2-15.7 HEMATOCRIT (BEAKER) (test axvu=368) 34.7 % 34.1-44.9 MEAN CORPUSCULAR VOLUME (BEAKER) (test vonm=745) 82.6 fL 79.4-94.8 MEAN CORPUSCULAR HEMOGLOBIN (BEAKER) (test 25.5 pg 25.6-32.2 ewcs=226) MEAN CORPUSCULAR HEMOGLOBIN CONC (BEAKER) (test 30.8 GM/DL 32.2-35.5 pqxx=366) RED CELL DISTRIBUTION WIDTH (BEAKER) (test 14.7 % 11.7-14.4 vcrw=893) PLATELET COUNT (BEAKER) (test flcm=158) 198 K/CU MM 150-450 MEAN PLATELET VOLUME (BEAKER) (test ymaj=180) 11.1 fL 9.4-12.3 NUCLEATED RED BLOOD CELLS (BEAKER) (test 0 /100 WBC 0-0 vlwp=262) NEUTROPHILS RELATIVE PERCENT (BEAKER) (test 63 % efek=099) LYMPHOCYTES RELATIVE PERCENT (BEAKER) (test 28 % lgfd=897) MONOCYTES RELATIVE PERCENT (BEAKER) (test 6 % yyqh=475) EOSINOPHILS RELATIVE PERCENT (BEAKER) (test 3 % kiwg=211) BASOPHILS RELATIVE PERCENT (BEAKER) (test 1 % oenk=540) NEUTROPHILS ABSOLUTE COUNT (BEAKER) (test 5.41 K/ L 1.56-6.13 cxwp=259) LYMPHOCYTES ABSOLUTE COUNT (BEAKER) (test 2.37 K/ L 1.18-3.74 dgll=516) MONOCYTES ABSOLUTE COUNT (BEAKER) (test 0.50 K/ L 0.24-0.36 bnic=895) EOSINOPHILS ABSOLUTE COUNT (BEAKER) (test 0.27 K/ L 0.04-0.36 qoqc=248) BASOPHILS ABSOLUTE COUNT (BEAKER) (test 0.06 K/ L 0.01-0.08 qvrt=922) IMMATURE GRANULOCYTES-RELATIVE PERCENT (BEAKER) 0 % 0-1 (test ferp=4185) POCT-GLUCOSE [id number] 21:32:00 Test Item Value Reference Range Comments POC-GLUCOSE METER (BEAKER) 176 mg/dL 70-110 TESTED AT [address] (test tmfs=4881) [place] [address] POCT-GLUCOSE [id number] 20:27:00 Test Item Value Reference Range Comments POC-GLUCOSE METER (BEAKER) 161 mg/dL 70-110 TESTED AT [address] (test eimg=5143) [place] [address] POCT-GLUCOSE [id number] 18:23:00 Test Item Value Reference Range Comments POC-GLUCOSE METER (BEAKER) 185 mg/dL 70-110 TESTED AT [address] (test fugq=5050) [place] [address] POCT-GLUCOSE [id number] 13:26:00 Test Item Value Reference Range Comments POC-GLUCOSE METER (BEAKER) 282 mg/dL 70-110 TESTED AT [address] (test vgnb=3075) [place] [address] URINE [id number] 10:12:00 Test Item Value Reference Range Comments CULTURE (BEAKER) (test lato=0053) >100,000 col/mL skin todd POCT-GLUCOSE [id number] 09:01:00 Test Item Value Reference Range Comments POC-GLUCOSE METER (BEAKER) 268 mg/dL 70-110 TESTED AT [address] (test pbyz=3038) [place] [address] CALCIUM, [id number] 05:39:00 Test Item Value Reference Range Comments CALCIUM IONIZED (BEAKER) (test mbzu=202) 0.84 mmol/L 1.12-1.27 PH, BLOOD (BEAKER) (test xkha=4008) 7.35 BASIC METABOLIC [id number] 05:07:00 Test Item Value Reference Range Comments SODIUM (BEAKER) (test 135 meq/L 136-145 dzns=023) POTASSIUM (BEAKER) (test 4.9 meq/L 3.5-5.1 wxwf=778) CHLORIDE (BEAKER) (test 106 meq/L 98-107 fbfk=625) CO2 (BEAKER) (test 22 meq/L 22-29 esuv=316) BLOOD UREA NITROGEN 43 mg/dL 7-21 (BEAKER) (test mmny=860) CREATININE (BEAKER) (test 2.00 mg/dL 0.57-1.25 uanh=792) GLUCOSE RANDOM (BEAKER) 161 mg/dL 70-105 (test haaa=805) CALCIUM (BEAKER) (test 8.2 mg/dL 8.4-10.2 okxl=484) EGFR (BEAKER) (test 25 mL/min/1.73 sq m ESTIMATED GFR IS NOT sbmo=5783) ACCURATE CREATININE CLEARANCE IN PREDICTING GLOMERULAR FILTRATION RATE. ESTIMATED GFR IS NOT APPLICABLE FOR DIALYSIS PATIENTS. [id number] 05:06:00 Test Item Value Reference Range Comments PHOSPHORUS (BEAKER) (test ejco=388) 3.2 mg/dL 2.3-4.7 [id number] 05:06:00 Test Item Value Reference Range Comments MAGNESIUM (BEAKER) (test aucu=845) 2.3 mg/dL 1.6-2.6 CBC W/PLT COUNT & AUTO [id number] 04:42:00 Test Item Value Reference Range Comments WHITE BLOOD CELL COUNT (BEAKER) (test ngpl=470) 9.5 K/ L 3.5-10.5 RED BLOOD CELL COUNT (BEAKER) (test ppcn=674) 4.17 M/ L 3.93-5.22 HEMOGLOBIN (BEAKER) (test qetj=771) 10.5 GM/DL 11.2-15.7 HEMATOCRIT (BEAKER) (test ipdl=797) 34.2 % 34.1-44.9 MEAN CORPUSCULAR VOLUME (BEAKER) (test uloj=272) 82.0 fL 79.4-94.8 MEAN CORPUSCULAR HEMOGLOBIN (BEAKER) (test 25.2 pg 25.6-32.2 xgvf=575) MEAN CORPUSCULAR HEMOGLOBIN CONC (BEAKER) (test 30.7 GM/DL 32.2-35.5 qnqv=387) RED CELL DISTRIBUTION WIDTH (BEAKER) (test 14.6 % 11.7-14.4 hwkt=432) PLATELET COUNT (BEAKER) (test zkfd=862) 177 K/CU MM 150-450 MEAN PLATELET VOLUME (BEAKER) (test mdhs=624) 11.1 fL 9.4-12.3 NUCLEATED RED BLOOD CELLS (BEAKER) (test 0 /100 WBC 0-0 jaem=469) NEUTROPHILS RELATIVE PERCENT (BEAKER) (test 55 % yqkg=270) LYMPHOCYTES RELATIVE PERCENT (BEAKER) (test 36 % ykvl=419) MONOCYTES RELATIVE PERCENT (BEAKER) (test 6 % wbqo=892) EOSINOPHILS RELATIVE PERCENT (BEAKER) (test 2 % mknv=705) BASOPHILS RELATIVE PERCENT (BEAKER) (test 1 % nnzw=528) NEUTROPHILS ABSOLUTE COUNT (BEAKER) (test 5.20 K/ L 1.56-6.13 okum=086) LYMPHOCYTES ABSOLUTE COUNT (BEAKER) (test 3.37 K/ L 1.18-3.74 zcef=116) MONOCYTES ABSOLUTE COUNT (BEAKER) (test 0.59 K/ L 0.24-0.36 alah=037) EOSINOPHILS ABSOLUTE COUNT (BEAKER) (test 0.21 K/ L 0.04-0.36 mgsa=479) BASOPHILS ABSOLUTE COUNT (BEAKER) (test 0.07 K/ L 0.01-0.08 upsh=693) IMMATURE GRANULOCYTES-RELATIVE PERCENT (BEAKER) 0 % 0-1 (test nila=4591) RHEUMATOID FACTOR AB, REFLEX TO [id number] 01:52:00 Test Item Value Reference Range Comments RHEUMATOID FACTOR (BEAKER) (test udyr=828) Negative POCT-GLUCOSE [id number] 21:57:00 Test Item Value Reference Range Comments POC-GLUCOSE METER (BEAKER) 105 mg/dL 70-110 TESTED AT [facility] [address] (test edbm=7628) [facility] [address] POCT-GLUCOSE [id number] 18:11:00 Test Item Value Reference Range Comments POC-GLUCOSE METER (BEAKER) 312 mg/dL 70-110 Notified GUILHERME PIERRE/TESTED AT [facility] (test xpux=3103) [address] [place] [address] PET, CARDIAC PERFUSION MULTIPLE STUDIES, REST AND [id number] 16:28: 00Reason for exam:->pvcs, known cadFINAL REPORT PROCEDURE: Rest/Stress MYOCARDIAL PERFUSION PET with regadenoson\XA9\ CPT CODE: [id number] INDICATION: Defined extent and severity of known [...] 23% . LVEF at stress is 36%. 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 7. No previous [facility] study for comparison. NONINVASIVE RISK STRATIFICATION: The above findings are considered high risk (>3% annual mortality rate) based on the following criteria: - Severe resting left ventricular dysfunction (LVEF 35%)- Stress-induced large perfusion defect ( particularly if anterior)(JACC. 2012;59(9):857-81.) Signed: Last Lopez MDReport Verified Date/Time: 05/15/2017 16:28:12 Reading Location: [address] [facility] RAD, CHEST, 1 VIEW, NON [id number] 15:56:00Reason for exam:->SOBShould this be performed at the bedside?->YesFINAL REPORT Comparison: 05/14/2017 TECHNIQUE: Single view of the chest FINDINGS: There is a small right pleural effusion with nonspecific airspace disease. This is unchanged. Left lung is grossly clear. Cardiac silhouette is enlarged. IMPRESSION: 1. No acute cardiopulmonary disease. Signed : Sixto Monk MDReport Verified Date/Time: 05/15/2017 15:56:39 Reading Location : [facility] Radiology Reading Room POCT-GLUCOSE [id number] 12:54:00 Test Item Value Reference Range Comments POC-GLUCOSE METER (BEAKER) 308 mg/dL 70-110 Notified GUILHERME PIERRE/TESTED AT [facility] (test lnfn=3241) [address] [facility] [address] U/S, RENAL WITH [id number] 11:04:00Reason for exam:->tracy, htnShould this be performed [...] Verified Date/Time: 05/15/2017 11:04:01 Reading Location : [place] [id number] Ultrasound Reading Room ANA TITER AND [id number] 10:57:00 Test Item Value Reference Range Comments ROGER TITER (BEAKER) (test bcdo=1586) :160 ROGER PATTERN (BEAKER) (test gqot=2384) Speckled ANTI-NUCLEAR ANTIBODY (ROGER)2017-05-15 10:56:00 Test Item Value Reference Range Comments ANTI-NUCLEAR ANTIBODY (ROGER) (BEAKER) (test Positive Negative cqpe=320) CALCIUM, [id number] 06:00:00 Test Item Value Reference Range Comments CALCIUM IONIZED (BEAKER) (test fmqh=464) 1.07 mmol/L 1.12-1.27 PH, BLOOD (BEAKER) (test roob=0198) 7.28 HEPATITIS PANEL, [id number] 05:01:00 Test Item Value Reference Range Comments HEPATITIS A IGM ANTIBODY (BEAKER) (test Nonreactive Nonreactive jahb=880) HEPATITIS B CORE IGM ANTIBODY (BEAKER) (test Nonreactive Nonreactive iivr=935) HEPATITIS C ANTIBODY (BEAKER) (test llhw=700) Nonreactive Nonreactive HEPATITIS B SURFACE ANTIGEN (2) (BEAKER) (test Nonreactive Nonreactive fsqv=8367) BASIC METABOLIC [id number] 04:48:00 Test Item Value Reference Range Comments SODIUM (BEAKER) (test 135 meq/L 136-145 qqty=112) POTASSIUM (BEAKER) (test 5.2 meq/L 3.5-5.1 mphx=102) CHLORIDE (BEAKER) (test 104 meq/L 98-107 xbjm=137) CO2 (BEAKER) (test 22 meq/L 22-29 myxu=464) BLOOD UREA NITROGEN 46 mg/dL 7-21 (BEAKER) (test rvbr=412) CREATININE (BEAKER) (test 2.64 mg/dL 0.57-1.25 dqgw=617) GLUCOSE RANDOM (BEAKER) 176 mg/dL 70-105 (test telf=947) CALCIUM (BEAKER) (test 8.2 mg/dL 8.4-10.2 obbm=425) EGFR (BEAKER) (test 18 mL/min/1.73 sq m ESTIMATED GFR IS NOT awhu=6567) ACCURATE CREATININE CLEARANCE IN PREDICTING GLOMERULAR FILTRATION RATE. ESTIMATED GFR IS NOT APPLICABLE FOR DIALYSIS PATIENTS. URIC [id number] 04:41:00 Test Item Value Reference Range Comments URIC ACID (BEAKER) (test usyj=016) 10.3 mg/dL 2.6-7.2 [id number] 04:41:00 Test Item Value Reference Range Comments MAGNESIUM (BEAKER) (test imfr=324) 2.0 mg/dL 1.6-2.6 [id number] 04:41:00 Test Item Value Reference Range Comments PHOSPHORUS (BEAKER) (test ocos=047) 4.2 mg/dL 2.3-4.7 COMPLEMENT COMPONENT [id number] 04:38:00 Test Item Value Reference Range Comments C4 COMPLEMENT (BEAKER) (test ucan=238) 28 mg/dL 15-57 COMPLEMENT COMPONENT [id number] 04:38:00 Test Item Value Reference Range Comments C3 COMPLEMENT (BEAKER) (test gxbz=009) 103 mg/dL 82-193 CBC W/PLT COUNT & AUTO [id number] 04:22:00 Test Item Value Reference Range Comments WHITE BLOOD CELL COUNT (BEAKER) (test iawa=438) 11.0 K/ L 3.5-10.5 RED BLOOD CELL COUNT (BEAKER) (test btey=980) 4.25 M/ L 3.93-5.22 HEMOGLOBIN (BEAKER) (test tjla=268) 10.6 GM/DL 11.2-15.7 HEMATOCRIT (BEAKER) (test lumb=782) 35.3 % 34.1-44.9 MEAN CORPUSCULAR VOLUME (BEAKER) (test pbcd=360) 83.1 fL 79.4-94.8 MEAN CORPUSCULAR HEMOGLOBIN (BEAKER) (test 24.9 pg 25.6-32.2 engc=897) MEAN CORPUSCULAR HEMOGLOBIN CONC (BEAKER) (test 30.0 GM/DL 32.2-35.5 kagm=953) RED CELL DISTRIBUTION WIDTH (BEAKER) (test 14.5 % 11.7-14.4 jmtm=614) PLATELET COUNT (BEAKER) (test vfxt=264) 185 K/CU MM 150-450 MEAN PLATELET VOLUME (BEAKER) (test ohoo=827) 10.9 fL 9.4-12.3 NUCLEATED RED BLOOD CELLS (BEAKER) (test 0 /100 WBC 0-0 oipx=841) NEUTROPHILS RELATIVE PERCENT (BEAKER) (test 61 % utju=086) LYMPHOCYTES RELATIVE PERCENT (BEAKER) (test 31 % rkww=318) MONOCYTES RELATIVE PERCENT (BEAKER) (test 5 % ilwi=132) EOSINOPHILS RELATIVE PERCENT (BEAKER) (test 2 % tyky=252) BASOPHILS RELATIVE PERCENT (BEAKER) (test 1 % wviu=990) NEUTROPHILS ABSOLUTE COUNT (BEAKER) (test 6.72 K/ L 1.56-6.13 tsat=444) LYMPHOCYTES ABSOLUTE COUNT (BEAKER) (test 3.35 K/ L 1.18-3.74 nzpo=410) MONOCYTES ABSOLUTE COUNT (BEAKER) (test 0.59 K/ L 0.24-0.36 qgfm=650) EOSINOPHILS ABSOLUTE COUNT (BEAKER) (test 0.21 K/ L 0.04-0.36 siig=596) BASOPHILS ABSOLUTE COUNT (BEAKER) (test 0.06 K/ L 0.01-0.08 mkwc=134) IMMATURE GRANULOCYTES-RELATIVE PERCENT (BEAKER) 0 % 0-1 (test mcig=3005) POCT-GLUCOSE [id number] 21:46:00 Test Item Value Reference Range Comments POC-GLUCOSE METER (BEAKER) 173 mg/dL 70-110 TESTED AT [address] (test nvvh=2403) [place] [address] POCT-GLUCOSE [id number] 21:46:00 Test Item Value Reference Range Comments POC-GLUCOSE METER (BEAKER) 154 mg/dL 70-110 TESTED AT [address] (test ifva=2639) [place] [address] POCT-GLUCOSE [id number] 18:17:00 Test Item Value Reference Range Comments POC-GLUCOSE METER (BEAKER) 175 mg/dL 70-110 TESTED AT [address] (test fjie=1969) [place] [address] RAD, CHEST, 1 VIEW, NON [id number] 14:56:00Reason for exam:->SOBShould this be performed at the bedside?->YesFINAL REPORT INDICATION: SOB COMPARISON: May 13, 2017 TECHNIQUE: Chest radiograph, single view, portable technique. FINDINGS / IMPRESSION: Enlarged heart shadow, small rightpleural effusion, and pulmonary venous congestion, again demonstrated. No pneumothorax or consolidation. Osseous structures unremarkable. Signed: Satnam Jean MDReport Verified Date/Time: 05/14/2017 14:56:58 Reading Location: [facility] Mammo Reading Room POCT-GLUCOSE [id number] 12:18:00 Test Item Value Reference Range Comments POC-GLUCOSE METER (BEAKER) 313 mg/dL 70-110 TESTED AT [address] (test iysc=6010) [place] [address] HIV-1 ANTIGEN WITH HIV-1/2 [id number] 12:07:00 Test Item Value Reference Range Comments HIV-1 ANTIGEN WITH HIV 1\T\2 ANTIBODY (2) Nonreactive Nonreactive (BEAKER) (test flkv=3868) CALCIUM, [id number] 06:37:00 Test Item Value Reference Range Comments CALCIUM IONIZED (BEAKER) (test mlgd=166) 1.08 mmol/L 1.12-1.27 PH, BLOOD (BEAKER) (test amje=0265) 7.25 BASIC METABOLIC [id number] 06:26:00 Test Item Value Reference Range Comments SODIUM (BEAKER) (test 134 meq/L 136-145 shcp=642) POTASSIUM (BEAKER) (test 5.1 meq/L 3.5-5.1 pbvs=108) CHLORIDE (BEAKER) (test 103 meq/L 98-107 fkkm=564) CO2 (BEAKER) (test 25 meq/L 22-29 osic=928) BLOOD UREA NITROGEN 45 mg/dL 7-21 (BEAKER) (test ucqs=357) CREATININE (BEAKER) (test 2.92 mg/dL 0.57-1.25 kfqn=712) GLUCOSE RANDOM (BEAKER) 163 mg/dL 70-105 (test balz=178) CALCIUM (BEAKER) (test 8.1 mg/dL 8.4-10.2 hysu=784) EGFR (BEAKER) (test 16 mL/min/1.73 sq m ESTIMATED GFR IS NOT lbqb=0670) ACCURATE CREATININE CLEARANCE IN PREDICTING GLOMERULAR FILTRATION RATE. ESTIMATED GFR IS NOT APPLICABLE FOR DIALYSIS PATIENTS. B-TYPE NATRIURETIC FACTOR (BNP)2017-05-14 06:26:00 Test Item Value Reference Range Comments B-TYPE NATRIURETIC PEPTIDE (BEAKER) (test 474 pg/mL 0-100 znsw=113) [id number] 06:25:00 Test Item Value Reference Range Comments PHOSPHORUS (BEAKER) (test urht=341) 5.7 mg/dL 2.3-4.7 [id number] 06:25:00 Test Item Value Reference Range Comments MAGNESIUM (BEAKER) (test bblp=468) 1.5 mg/dL 1.6-2.6 CBC W/PLT COUNT & AUTO [id number] 06:07:00 Test Item Value Reference Range Comments WHITE BLOOD CELL COUNT (BEAKER) (test bztz=918) 8.9 K/ L 3.5-10.5 RED BLOOD CELL COUNT (BEAKER) (test wlku=744) 4.32 M/ L 3.93-5.22 HEMOGLOBIN (BEAKER) (test kcuh=467) 11.0 GM/DL 11.2-15.7 HEMATOCRIT (BEAKER) (test mtvh=305) 36.6 % 34.1-44.9 MEAN CORPUSCULAR VOLUME (BEAKER) (test fkjs=431) 84.7 fL 79.4-94.8 MEAN CORPUSCULAR HEMOGLOBIN (BEAKER) (test 25.5 pg 25.6-32.2 ywad=766) MEAN CORPUSCULAR HEMOGLOBIN CONC (BEAKER) (test 30.1 GM/DL 32.2-35.5 escv=967) RED CELL DISTRIBUTION WIDTH (BEAKER) (test 14.6 % 11.7-14.4 cpmh=251) PLATELET COUNT (BEAKER) (test zfpq=191) 201 K/CU MM 150-450 MEAN PLATELET VOLUME (BEAKER) (test mpum=346) 11.1 fL 9.4-12.3 NUCLEATED RED BLOOD CELLS (BEAKER) (test 0 /100 WBC 0-0 jvfr=375) NEUTROPHILS RELATIVE PERCENT (BEAKER) (test 55 % gtna=990) LYMPHOCYTES RELATIVE PERCENT (BEAKER) (test 36 % pdsk=951) MONOCYTES RELATIVE PERCENT (BEAKER) (test 5 % xqnv=886) EOSINOPHILS RELATIVE PERCENT (BEAKER) (test 3 % tlem=823) BASOPHILS RELATIVE PERCENT (BEAKER) (test 1 % disx=904) NEUTROPHILS ABSOLUTE COUNT (BEAKER) (test 4.85 K/ L 1.56-6.13 fdcl=616) LYMPHOCYTES ABSOLUTE COUNT (BEAKER) (test 3.18 K/ L 1.18-3.74 jomh=318) MONOCYTES ABSOLUTE COUNT (BEAKER) (test 0.47 K/ L 0.24-0.36 xniz=159) EOSINOPHILS ABSOLUTE COUNT (BEAKER) (test 0.25 K/ L 0.04-0.36 vrrh=030) BASOPHILS ABSOLUTE COUNT (BEAKER) (test 0.07 K/ L 0.01-0.08 nfbo=838) IMMATURE GRANULOCYTES-RELATIVE PERCENT (BEAKER) 0 % 0-1 (test fyzi=3011) POCT-GLUCOSE [id number] 22:38:00 Test Item Value Reference Range Comments POC-GLUCOSE METER (BEAKER) 262 mg/dL 70-110 TESTED AT [facility] [address] (test raes=5607) [place] [address] PROTEIN, RANDOM [id number] 22:18:00 Test Item Value Reference Range Comments PROTEIN, URINE (BEAKER) (test sxgx=5606) 641 mg/dL 0-14 CREATININE, RANDOM [id number] 22:07:00 Test Item Value Reference Range Comments CREATININE URINE (BEAKER) (test keqw=660) 124.9 mg/dL Reference Range: No NormalsURINALYSIS W/ [id number] 22:03:00 Test Item Value Reference Range Comments COLOR (BEAKER) (test ruku=891) Yellow CLARITY (BEAKER) (test pvyb=302) Cloudy SPECIFIC GRAVITY UA (BEAKER) (test olys=653) 1.015 1.001-1.035 PH UA (BEAKER) (test uadl=890) 5.5 5.0-8.0 PROTEIN UA (BEAKER) (test jnjq=311) 300 mg/dL Negative GLUCOSE UA (BEAKER) (test xfwp=529) 300 mg/dL Negative KETONES UA (BEAKER) (test tqaf=120) Negative Negative BILIRUBIN UA (BEAKER) (test wxvc=798) Negative Negative BLOOD UA (BEAKER) (test fqfu=733) Trace Negative NITRITE UA (BEAKER) (test rvoa=730) Negative Negative LEUKOCYTE ESTERASE UA (BEAKER) (test ocpk=172) Moderate Negative UROBILINOGEN UA (BEAKER) (test esnm=015) 0.2 mg/dL 0.2-1.0 RBC UA (BEAKER) (test qcjg=074) 11 /HPF WBC UA (BEAKER) (test nwpa=818) 36 /HPF MUCUS (BEAKER) (test fgdc=6564) Few SQUAMOUS EPITHELIAL (BEAKER) (test pybc=219) 12 /HPF HYALINE CASTS (BEAKER) (test chcj=027) 66 /LPF CASTS (BEAKER) (test ukzb=4636) 112 /LPF YEAST (BEAKER) (test ruhw=6854) Moderate SOURCE(BEAKER) (test mjex=9331) Urine, Voided [id number] 19:49:00 Test Item Value Reference Range Comments SODIUM (BEAKER) (test djmb=718) 136 meq/L 136-145 POTASSIUM (BEAKER) (test 5.1 meq/L 3.5-5.1 Specimen slightly hemolyzed wegg=320) CHLORIDE (BEAKER) (test 104 meq/L 98-107 kmco=501) CO2 (BEAKER) (test fron=547) 25 meq/L 22-29 Call if K > 5POCT-GLUCOSE [id number] 11:37:00 Test Item Value Reference Range Comments POC-GLUCOSE METER (BEAKER) 293 mg/dL 70-110 TESTED AT [address] (test wsfa=2308) [place] [address] RAD, CHEST, 1 VIEW, NON [id number] 10:22:00Reason for exam:->SOBShould this be performed at the bedside?->YesFINAL REPORT Chest one view Discussion: There is cardiomegaly and interstitial congestion. A small right-sided effusion is noted. No pneumothorax. IMPRESSIONS: Suspected CHF. Signed: Jeannette Nava Verified Date/Time: 05/13/2017 10:22:34 Reading Location: [facility] Radiology Reading Room POCT-GLUCOSE [id number] 08:34:00 Test Item Value Reference Range Comments POC-GLUCOSE METER (BEAKER) 178 mg/dL 70-110 TESTED AT [address] (test hoxo=0710) [place] [address] POCT-GLUCOSE [id number] 06:53:00 Test Item Value Reference Range Comments POC-GLUCOSE METER (BEAKER) 167 mg/dL 70-110 TESTED AT [address] (test jeah=7093) [place] [address] [id number] 04:48:00 Test Item Value Reference Range Comments BLOOD UREA NITROGEN (BEAKER) (test jjuz=412) 36 mg/dL 7-21 [id number] 04:48:00 Test Item Value Reference Range Comments SODIUM (BEAKER) (test knsd=263) 139 meq/L 136-145 POTASSIUM (BEAKER) (test wunk=837) 5.2 meq/L 3.5-5.1 CHLORIDE (BEAKER) (test gjzq=754) 109 meq/L 98-107 CO2 (BEAKER) (test lnxz=610) 23 meq/L 22-29 [id number] 04:48:00 Test Item Value Reference Range Comments CREATININE (BEAKER) (test 1.73 mg/dL 0.57-1.25 zrip=644) EGFR (BEAKER) (test 30 mL/min/1.73 sq m ESTIMATED GFR IS NOT ipjq=3842) ACCURATE CREATININE CLEARANCE IN PREDICTING GLOMERULAR FILTRATION RATE. ESTIMATED GFR IS NOT APPLICABLE FOR DIALYSIS PATIENTS. CBC (HEMOGRAM ONLY)2017-05-13 04:33:00 Test Item Value Reference Range Comments WHITE BLOOD CELL COUNT (BEAKER) (test rlin=909) 10.2 K/ L 3.5-10.5 RED BLOOD CELL COUNT (BEAKER) (test teaa=937) 4.54 M/ L 3.93-5.22 HEMOGLOBIN (BEAKER) (test txxf=504) 11.4 GM/DL 11.2-15.7 HEMATOCRIT (BEAKER) (test pmuz=671) 37.6 % 34.1-44.9 MEAN CORPUSCULAR VOLUME (BEAKER) (test isss=107) 82.8 fL 79.4-94.8 MEAN CORPUSCULAR HEMOGLOBIN (BEAKER) (test 25.1 pg 25.6-32.2 gphl=980) MEAN CORPUSCULAR HEMOGLOBIN CONC (BEAKER) (test 30.3 GM/DL 32.2-35.5 lyfy=895) RED CELL DISTRIBUTION WIDTH (BEAKER) (test 14.7 % 11.7-14.4 axot=321) PLATELET COUNT (BEAKER) (test jqtm=045) 194 K/CU MM 150-450 MEAN PLATELET VOLUME (BEAKER) (test wqpu=014) 10.9 fL 9.4-12.3 NUCLEATED RED BLOOD CELLS (BEAKER) (test 0 /100 WBC 0-0 oxjy=768) [id number] 23:29:00 Test Item Value Reference Range Comments ACTIVATED CLOTTING TIME 136 sec TESTED AT [address] (BEAKER) (test even=205) [facility] [address] [id number] 20:13:00 Test Item Value Reference Range Comments ACTIVATED CLOTTING TIME 175 sec TESTED AT [facility] [address] (BEAKER) (test efon=910) [place] [address] [id number] 18:36:00 Test Item Value Reference Range Comments ACTIVATED CLOTTING TIME 202 sec TESTED AT [place] [address] [address] (BEAKER) (test cgxo=394) [place] [address] [id number] 18:03:00 Test Item Value Reference Range Comments ACTIVATED CLOTTING TIME 208 sec TESTED AT [place] [address] [address] (BEAKER) (test gdst=947) [place] [address] BASIC METABOLIC [id number] 11:57:00 Test Item Value Reference Range Comments SODIUM (BEAKER) (test 139 meq/L 136-145 htty=384) POTASSIUM (BEAKER) (test 4.9 meq/L 3.5-5.1 vsnk=170) CHLORIDE (BEAKER) (test 107 meq/L 98-107 elny=338) CO2 (BEAKER) (test 27 meq/L 22-29 iizm=821) BLOOD UREA NITROGEN 36 mg/dL 7-21 (BEAKER) (test azfk=678) CREATININE (BEAKER) (test 1.60 mg/dL 0.57-1.25 ctps=605) GLUCOSE RANDOM (BEAKER) 187 mg/dL 70-105 (test wbcj=336) CALCIUM (BEAKER) (test 8.6 mg/dL 8.4-10.2 ybyz=157) EGFR (BEAKER) (test 33 mL/min/1.73 sq m ESTIMATED GFR IS NOT lnuy=9538) ACCURATE CREATININE CLEARANCE IN PREDICTING GLOMERULAR FILTRATION RATE. ESTIMATED GFR IS NOT APPLICABLE FOR DIALYSIS PATIENTS. PROTHROMBIN [id number] 11:15:00 Test Item Value Reference Range Comments PROTIME (BEAKER) (test wixw=894) 14.8 seconds 11.7-14.7 INR (BEAKER) (test zgpd=443) 1.2 <=5.9 RECOMMENDED COUMADIN/WARFARIN INR THERAPY RANGESSTANDARD DOSE: 2.0 - 3.0 Includes: PROPHYLAXIS forvenous thrombosis, systemic embolization; TREATMENT for venous thrombosis and/or pulmonary embolus.HIGH RISK: Target INR is 2.5-3.5 for patients with mechanical heart valves.Within 24 hours, if on CoumadinCBC W/ PLT COUNT & AUTO [id number] 11:01:00 Test Item Value Reference Range Comments WHITE BLOOD CELL COUNT (BEAKER) (test ihrf=982) 9.1 K/ L 3.5-10.5 RED BLOOD CELL COUNT (BEAKER) (test xbkm=433) 4.62 M/ L 3.93-5.22 HEMOGLOBIN (BEAKER) (test nokf=101) 11.7 GM/DL 11.2-15.7 HEMATOCRIT (BEAKER) (test kbqw=487) 38.0 % 34.1-44.9 MEAN CORPUSCULAR VOLUME (BEAKER) (test hvwz=993) 82.3 fL 79.4-94.8 MEAN CORPUSCULAR HEMOGLOBIN (BEAKER) (test 25.3 pg 25.6-32.2 vvpx=937) MEAN CORPUSCULAR HEMOGLOBIN CONC (BEAKER) (test 30.8 GM/DL 32.2-35.5 biaa=962) RED CELL DISTRIBUTION WIDTH (BEAKER) (test 14.5 % 11.7-14.4 uzwx=986) PLATELET COUNT (BEAKER) (test benz=874) 205 K/CU MM 150-450 MEAN PLATELET VOLUME (BEAKER) (test xsmd=095) 10.6 fL 9.4-12.3 NUCLEATED RED BLOOD CELLS (BEAKER) (test 0 /100 WBC 0-0 pdgt=058) NEUTROPHILS RELATIVE PERCENT (BEAKER) (test 59 % ydhr=901) LYMPHOCYTES RELATIVE PERCENT (BEAKER) (test 32 % ukhf=759) MONOCYTES RELATIVE PERCENT (BEAKER) (test 5 % ycnq=232) EOSINOPHILS RELATIVE PERCENT (BEAKER) (test 3 % heyf=190) BASOPHILS RELATIVE PERCENT (BEAKER) (test 1 % mlzj=116) NEUTROPHILS ABSOLUTE COUNT (BEAKER) (test 5.36 K/ L 1.56-6.13 fggi=626) LYMPHOCYTES ABSOLUTE COUNT (BEAKER) (test 2.86 K/ L 1.18-3.74 vbje=330) MONOCYTES ABSOLUTE COUNT (BEAKER) (test 0.48 K/ L 0.24-0.36 kfyx=234) EOSINOPHILS ABSOLUTE COUNT (BEAKER) (test 0.27 K/ L 0.04-0.36 zylg=855) BASOPHILS ABSOLUTE COUNT (BEAKER) (test 0.08 K/ L 0.01-0.08 zbyw=703) IMMATURE GRANULOCYTES-RELATIVE PERCENT (BEAKER) 0 % 0-1 (test jkzq=3613) POCT-GLUCOSE [id number] 12:35:00 Test Item Value Reference Range Comments POC-GLUCOSE METER (BEAKER) 249 mg/dL 70-110 TESTED AT [address] (test mgwr=4072) [place] [address] POCT-GLUCOSE [id number] 09:10:00 Test Item Value Reference Range Comments POC-GLUCOSE METER (BEAKER) 155 mg/dL 70-110 TESTED AT [address] (test pdtk=6297) [place] [address] BASIC METABOLIC [id number] 05:39:00 Test Item Value Reference Range Comments SODIUM (BEAKER) (test 138 meq/L 136-145 oseu=865) POTASSIUM (BEAKER) (test 4.7 meq/L 3.5-5.1 wniz=967) CHLORIDE (BEAKER) (test 107 meq/L 98-107 ilqb=446) CO2 (BEAKER) (test 25 meq/L 22-29 ntdc=497) BLOOD UREA NITROGEN 36 mg/dL 7-21 (BEAKER) (test uiad=580) CREATININE (BEAKER) (test 1.75 mg/dL 0.57-1.25 davm=506) GLUCOSE RANDOM (BEAKER) 126 mg/dL 70-105 (test lomn=737) CALCIUM (BEAKER) (test 8.2 mg/dL 8.4-10.2 kupo=945) EGFR (BEAKER) (test 29 mL/min/1.73 sq m ESTIMATED GFR IS NOT xwlx=3514) ACCURATE CREATININE CLEARANCE IN PREDICTING GLOMERULAR FILTRATION RATE. ESTIMATED GFR IS NOT APPLICABLE FOR DIALYSIS PATIENTS. [id number] 05:27:00 Test Item Value Reference Range Comments PHOSPHORUS (BEAKER) (test kvso=761) 5.0 mg/dL 2.3-4.7 [id number] 05:27:00 Test Item Value Reference Range Comments MAGNESIUM (BEAKER) (test ggzn=958) 1.6 mg/dL 1.6-2.6 POCT-GLUCOSE [id number] 05:25:00 Test Item Value Reference Range Comments POC-GLUCOSE METER (BEAKER) 144 mg/dL 70-110 TESTED AT [address] (test wkne=6063) [place] [address] PROTHROMBIN [id number] 04:58:00 Test Item Value Reference Range Comments PROTIME (BEAKER) (test kzse=639) 14.2 seconds 11.7-14.7 INR (BEAKER) (test wiyw=609) 1.1 <=5.9 RECOMMENDED COUMADIN/WARFARIN INR THERAPY RANGESSTANDARD DOSE: 2.0 - 3.0 Includes: PROPHYLAXIS forvenous thrombosis, systemic embolization; TREATMENT for venous thrombosis and/or pulmonary embolus.HIGH RISK: Target INR is 2.5-3.5 for patients with mechanical heart valves.POCT-GLUCOSE [id number] 23:55:00 Test Item Value Reference Range Comments POC-GLUCOSE METER (BEAKER) 86 mg/dL 70-110 TESTED AT [address] (test efdu=8173) [place] [address] B-TYPE NATRIURETIC FACTOR (BNP)2017-04-22 18:13:00 Test Item Value Reference Range Comments B-TYPE NATRIURETIC PEPTIDE (BEAKER) (test 1203 pg/mL 0-100 woot=213) POCT-GLUCOSE [id number] 17:36:00 Test Item Value Reference Range Comments POC-GLUCOSE METER (BEAKER) 259 mg/dL 70-110 TESTED AT [address] (test ahqr=8714) [place] [address] HEMOGLOBIN [id number] 14:24:00 Test Item Value Reference Range Comments HEMOGLOBIN A1C (BEAKER) (test depk=704) 10.5 % 4.3-6.1 POCT-GLUCOSE [id number] 12:34:00 Test Item Value Reference Range Comments POC-GLUCOSE METER (BEAKER) 207 mg/dL 70-110 TESTED AT [address] (test ssnc=2090) [place] [address] [id number] 07:53:00 Test Item Value Reference Range Comments PHOSPHORUS (BEAKER) (test uhbo=873) 3.9 mg/dL 2.3-4.7 [id number] 07:53:00 Test Item Value Reference Range Comments MAGNESIUM (BEAKER) (test trtg=395) 1.6 mg/dL 1.6-2.6 BASIC METABOLIC [id number] 07:53:00 Test Item Value Reference Range Comments SODIUM (BEAKER) (test 139 meq/L 136-145 qjrt=031) POTASSIUM (BEAKER) (test 4.5 meq/L 3.5-5.1 nhog=855) CHLORIDE (BEAKER) (test 108 meq/L 98-107 npoc=427) CO2 (BEAKER) (test 25 meq/L 22-29 wjcp=497) BLOOD UREA NITROGEN 29 mg/dL 7-21 (BEAKER) (test bsph=263) CREATININE (BEAKER) (test 1.54 mg/dL 0.57-1.25 jnpx=629) GLUCOSE RANDOM (BEAKER) 211 mg/dL 70-105 (test eznv=455) CALCIUM (BEAKER) (test 8.5 mg/dL 8.4-10.2 tolj=451) EGFR (BEAKER) (test 34 mL/min/1.73 sq m ESTIMATED GFR IS NOT gkdc=7169) ACCURATE CREATININE CLEARANCE IN PREDICTING GLOMERULAR FILTRATION RATE. ESTIMATED GFR IS NOT APPLICABLE FOR DIALYSIS PATIENTS. TROPONIN [id number] 07:29:00 Test Item Value Reference Range Comments TROPONIN I (BEAKER) (test eqlc=618) 0.05 ng/mL 0.00-0.03 Troponin I (TnI) levels [...] acidosis, acute neurological disease, and persistent tachyarrhythmia.PROTHROMBIN [id number] 07:01:00 Test Item Value Reference Range Comments PROTIME (BEAKER) (test ssgz=589) 13.8 seconds 11.7-14.7 INR (BEAKER) (test rybg=037) 1.1 <=5.9 RECOMMENDED COUMADIN/WARFARIN INR THERAPY RANGESSTANDARD DOSE: 2.0 - 3.0 Includes: PROPHYLAXIS forvenous thrombosis, systemic embolization; TREATMENT for venous thrombosis and/or pulmonary embolus.HIGH RISK: Target INR is 2.5-3.5 for patients with mechanical heart valves.POCT-GLUCOSE [id number] 06:28:00 Test Item Value Reference Range Comments POC-GLUCOSE METER (BEAKER) 198 mg/dL 70-110 TESTED AT [address] (test fpib=0390) [place] [id number] CREATINE KINASE (CK), TOTAL AND [id number] 00:49:00 Test Item Value Reference Range Comments CREATINE KINASE TOTAL (BEAKER) (test qcgc=357) 69 U/L 29-200 CREATINE KINASE-MB (AKER) (test bwoq=587) 4.3 ng/mL 0.0-6.6 CREATINE KINASE-MB INDEX (SERVANDOAKER) (test jwhh=695) 6.2 % CK-MB Reference Range:<6.7 Normal6.7-10.0 Borderline>10.0 AbnormalTROPONIN [id number] 00:49:00 Test Item Value Reference Range Comments TROPONIN I (SERVANDOAKER) (test fiec=241) 0.05 ng/mL 0.00-0.03 Troponin I (TnI) levels [...] acidosis, acute neurological disease, and persistent tachyarrhythmia.POCT-GLUCOSE [id number] 20:44:00 Test Item Value Reference Range Comments POC-GLUCOSE METER ([facility]) 269 mg/dL 70-110 TESTED AT [address] (test ljnw=8613) [place] [id number]
[2018-11-01] MEDS ORDERED: IPRATROPIUM BROM 0.5MG/2.5ML ONE (20:06)
[2018-11-01] MEDS ORDERED: LEVALBUTEROL 1.25 MG/3 ML NEB ONE (20:06)
[2018-11-01] MEDS ORDERED: METHYLPREDNISOLONE 125 MG INJ ONE (20:06)
[2018-11-01] MEDS ORDERED: FUROSEMIDE 40 MG/4 ML VIAL ONE (20:07)
[2018-11-01] MEDS ORDERED: HYDROMORPHONE HCL 0.5 MG/0.5 ML INJ ONE (20:07)
[2018-11-01] MEDS ORDERED: NA CHLORIDE 0.9% 1,000 ML ONE (20:07)
[2018-11-01] MEDS ORDERED: ONDANSETRON 4 MG/2 ML VIAL ONE (20:07)
[2018-11-01] MEDS ORDERED: FAMOTIDINE 20 MG/2 ML VIAL IV ONE (20:07)
[2018-11-01 20:23] LABS: Absolute Lymphocytes (CBC) 1.9 K/uL (0.7-4.9); Basophils % 0.8 % (0-1.3); Hematocrit 36.5 % (36.0-45.0); Lymphocytes % 19.3 % (15.3-44.8); MPV 8.1 fL (7.6-11.3); RBC Red Blood Cell Count 4.36 M/uL (3.86-4.86)
[2018-11-01 20:30] LABS: Protime INR 1.11
--- NOTE | 2018-11-01 20:40 | RAD REPORT ---
EXAM DESCRIPTION: RAD - Chest Single View - 11/01/2018 8:08 pm CLINICAL HISTORY: Cough, shortness of breath COMPARISON: September 12 TECHNIQUE: AP portable chest image was obtained 2004 hours . FINDINGS: Pleural effusion and right lung base opacification have improved but not resolved since pr ior imaging. No new or progressive left lung field finding. Lung base atelectasis is present. Cardiom egaly is present similar to comparison. No vascular engorgement. No pneumothorax. No acute bony abnor mality seen. No acute aortic findings suspected. IMPRESSION: Slight improvement in the pleural and parenchymal opacification in the right lung base s abram prior imaging.
--- NOTE | 2018-11-01 20:57 | EDPHYS ---
Physician Documentation [facility] Name: Christy Priest Age: 63 yrs Sex: Female : 1955 Arrival Date: 11/01/2018 Time: 19:13 Bed 7 Private MD: ED Physician Alessio Parry HPI: 11/01 19:55 This 63 yrs old Female presents to ER via EMS with complaints of Shortness Of carlos Breath. 19:55 The patient has shortness of breath at rest, with light activity. Onset: The carlos symptoms/episode began/occurred 3 day(s) ago. Duration: The symptoms are continuous, and are steadily getting worse. The patient's shortness of breath is aggravated by exertion, light activity, supine position. Associated signs and symptoms: Pertinent positives: non-productive cough. Severity of symptoms: At their worst the symptoms were moderate in the emergency department the symptoms are unchanged. The patient has experienced similar episodes in the past, multiple times. Historical: - Allergies: 19:22 Augmentin; bp 19:22 basil; bp 19:22 Morphine; bp 19:22 Nitroglycerin; bp 19:22 Tramadol HCl; bp 19:22 Trazodone; bp 19:22 Vancomycin; bp - Home Meds: 19:22 Plavix Oral [Active]; Lasix Oral [Active]; insulin [Active]; Hydralazine Oral [Active]; bp gabapentin Oral [Active]; - PMHx: 19:22 uterine cancer; triple bypass; Hypertension; High Cholesterol; ESRD; Diabetes - IDDM; bp COPD; CHF; - Immunization history:: Adult Immunizations up to date. - Social history:: Smoking status: Patient/guardian denies using tobacco. - Ebola Screening: : No symptoms or risks identified at this time. ROS: 19:56 Constitutional: Negative for fever, chills, and weight loss, Eyes: Negative for injury, carlos pain, redness, and discharge, ENT: Negative for injury, pain, and discharge, Neck: Negative for injury, pain, and swelling, Back: Negative for injury and pain, : Negative for injury, bleeding, discharge, and swelling, Neuro: Negative for headache, weakness, numbness, tingling, and seizure, Psych: Negative for depression, anxiety, suicide ideation, homicidal ideation, and hallucinations, Allergy/Immunology: Negative for hives, rash, and allergies, Endocrine: Negative for neck swelling, polydipsia, polyuria, polyphagia, and marked weight changes. 19:56 ENT: 19:56 Cardiovascular: Positive for edema, orthopnea, palpitations. 19:56 Respiratory: Positive for cough, shortness of breath, wheezing, expiratory. 19:56 Abdomen/GI: Positive for abdominal distension. 19:56 MS/extremity: Positive for pain, swelling, tenderness, of the right leg and left leg. Exam: 19:56 Constitutional: This is a well developed, well nourished patient who is awake, alert, carlos and in no acute distress. Head/Face: Normocephalic, atraumatic. Eyes: Pupils equal round and reactive to light, extra-ocular motions intact. Lids and lashes normal. Conjunctiva and sclera are non-icteric and not injected. Cornea within normal limits. Periorbital areas with no swelling, redness, or edema. ENT: Nares patent. No nasal discharge, no septal abnormalities noted. Tympanic membranes are normal and external auditory canals are clear. Oropharynx with no redness, swelling, or masses, exudates, or evidence of obstruction, uvula midline. Mucous membranes moist. Chest/axilla: Normal chest wall appearance and motion. Nontender with no deformity. No lesions are appreciated. Back: No spinal tenderness. No costovertebral tenderness. Full range of motion. Neuro: Awake and alert, GCS 15, oriented to person, place, time, and situation. Cranial nerves II-XII grossly intact. Motor strength 5/5 in all extremities. Sensory grossly intact. Cerebellar exam normal. Normal gait. Psych: Awake, alert, with orientation to person, place and time. Behavior, mood, and affect are within normal limits. 19:56 Neck: External neck: swelling, bilateral jvd. 19:56 Cardiovascular: Rate: normal, Rhythm: regular, Pulses: Pulses are 3+ in bilateral radial, brachial, femoral, popliteal, posterior tibial and and dorsalis pedis arteries.. Heart sounds: normal, Edema: 4+ edema to level of waist, pubic area, left upper thigh, left lower thigh, left knee, left midcalf, left ankle, left foot, left toes, right upper thigh, right lower thigh, right knee, right midcalf, right ankle, right foot and right toes, JVD: is noted bilaterally, to the angle of the jaw. Vital Signs: 19:22 BP 104 / 55; Pulse 61; Resp 20; Temp 97.8; Pulse Ox 98% on Nebulizer Mask; Weight 75.75 bp kg; Height 5 ft. 7 in. (170.18 cm); Pain 9/10; 20:30 BP 109 / 52; Pulse 61; Resp 20; Pulse Ox 95% ; ea 21:51 BP 128 / 65; Pulse 57; Resp 19; Pulse Ox 94% ; ea 22:15 BP 130 / 67; Pulse 57; Resp 18; Pulse Ox 95% ; ea 23:45 BP 117 / 53; Pulse 57; Resp 18; Temp 97; Pulse Ox 95% on R/A; ea 19:22 Body Mass Index 26.16 (75.75 kg, 170.18 cm) bp Procedures: 20:47 Peripheral line: by aseptic technique a peripheral line was placed in the left external carlos jugular vein. MDM: 19:23 Patient medically screened. [facility] 20:00 Data reviewed: vital signs, nurses notes, EMS record, lab test result(s), EKG, [facility] radiologic studies, CT scan, plain films. 11/01 19:53 Order name: Basic Metabolic Panel; Complete Time: 21:22 [facility] 11/01 19:53 Order name: CBC with Diff; Complete Time: 20:47 [facility] 11/01 19:53 Order name: LFT's; Complete Time: 21:22 [facility] 11/01 19:53 Order name: Magnesium; Complete Time: 21:22 [facility] 11/01 19:53 Order name: NT PRO-BNP; Complete Time: 21:22 [facility] 11/01 19:53 Order name: PT-INR; Complete Time: 20:47 [facility] 11/01 19:53 Order name: Troponin (emerg Dept Use Only); Complete Time: 21:22 [facility] 11/01 19:53 Order name: Lipase; Complete Time: 21:22 [facility] 11/01 19:53 Order name: Procalcitonin; Complete Time: 21:22 [facility] 11/01 19:53 Order name: Lactate; Complete Time: 23:11 [facility] 11/01 19:53 Order name: Urine Culture [facility] 11/01 19:53 Order name: Blood Culture Adult (2) [facility] 11/01 22:23 Order name: CBC with Automated Diff EDFL 11/01 22:23 Order name: CBC with Automated Diff EDMS 11/01 19:53 Order name: XRAY Chest (1 view); Complete Time: 20:47 [facility] 11/01 20:26 Order name: BIPAP: low pressure [facility] 11/01 21:49 Order name: CT Chest Abdomen Pelvis W/O Contrast: no iv , no oral [facility] 11/01 22:23 Order name: Comprehensive Metabolic Panel EDFL 11/01 22:23 Order name: Comprehensive Metabolic Panel EDFL 11/01 22:23 Order name: Protime (+INR) EDMS 11/01 22:23 Order name: Protime (+INR) EDMS 11/01 22:23 Order name: PTT, Activated Partial Thromb EDFL 11/01 22:23 Order name: PTT, Activated Partial Thromb EDFL 11/01 23:35 Order name: Urinalysis lp1 11/01 19:53 Order name: EKG; Complete Time: 19:55 [facility] 11/01 19:53 Order name: Cardiac monitoring; Complete Time: 20:33 [facility] 11/01 19:53 Order name: EKG - Nurse/Tech; Complete Time: 20:33 [facility] 11/01 19:53 Order name: IV Saline Lock; Complete Time: 20:33 [facility] 11/01 19:53 Order name: Labs collected and sent; Complete Time: 20:33 [facility] 11/01 19:53 Order name: O2 Per Protocol; Complete Time: 20:33 [facility] 11/01 19:53 Order name: O2 Sat Monitoring; Complete Time: 20:33 [facility] 11/01 19:53 Order name: Urine Dipstick-Ancillary (obtain specimen); Complete Time: 23:33 [facility] 11/01 22:23 Order name: CONS Pharmacy Consult [facility] 11/01 22:23 Order name: CONS Physician Consult [facility] 11/01 22:23 Order name: Renal EDFL 11/01 22:33 Order name: Greene; Complete Time: 22:35 [facility] Administered Medications: 20:16 Drug: Zofran 4 mg Route: IVP; Site: right antecubital; ea 21:00 Follow up: Response: No adverse reaction ea 20:18 Drug: Pepcid 20 mg Route: IVP; Site: right antecubital; ea 21:00 Follow up: Response: No adverse reaction ea 20:20 Drug: Dilaudid 0.5 mg Route: IVP; Site: right antecubital; ea 21:00 Follow up: Response: No adverse reaction ea 20:22 Drug: Lasix 40 mg Route: IVP; Site: right antecubital; ea 21:56 Follow up: Response: No adverse reaction ea 20:22 Drug: SOLU-Medrol 125 mg Route: IVP; Site: right antecubital; ea 20:30 Follow up: Response: No adverse reaction ea 20:23 Drug: Xopenex 2.5 mg Route: Inhalation; ea 21:56 Follow up: Response: No adverse reaction ea 20:23 Drug: AtroVENT Aerosol 0.5 mg Route: Inhalation; ea 22:03 Drug: Lasix 20 mg Route: IVP; Site: right antecubital; ea 23:52 Follow up: Response: No adverse reaction ea 22:33 Drug: Kelly 10 mg-325 mg 1 tabs Route: PO; ea 23:52 Follow up: Response: No adverse reaction ea 23:52 Drug: Rocephin - (cefTRIAXone) 1 grams Route: IVPB; Infused Over: 30 mins; Site: right ea antecubital; 23:58 Follow up: Response: No adverse reaction; IV Status: Completed infusion; IV Intake: 10mlea Disposition: 11/01/18 20:55 Hospitalization ordered by Annmarie Carrasco for Inpatient Admission. Preliminary diagnosis are Dyspnea, Edema, unspecified, Unspecified combined systolic (congestive) and diastolic (congestive) heart failure, Hypoxemia, Unspecified kidney failure, Chronic obstructive pulmonary disease, unspecified, Pleural effusion in conditions classified elsewhere, Atelectasis, Ascites, Unspecified cirrhosis of liver. - Bed requested for Telemetry/MedSurg (Inpatient). - Status is Inpatient Admission. ea - Condition is Fair. - Problem is new. - Symptoms have improved. UTI on Admission? Yes Signatures: Dispatcher [employer] EDMS Alessio Parry MD MD cha Antunez, Elena, RN RN Jose Cruz Aguero RN RN bp Robles, Autumn ar5 Corrections: (The following items were deleted from the chart) 22:27 20:55 Hospitalization Ordered by Annmarie Carrasco MD for Inpatient Admission. Preliminary ar5 diagnosis is Dyspnea; Edema, unspecified; Unspecified combined systolic (congestive) and diastolic (congestive) heart failure; Hypoxemia; Unspecified kidney failure; Chronic obstructive pulmonary disease, unspecified. Bed requested for Telemetry/MedSurg (Inpatient). Status is Inpatient Admission. Condition is Fair. Problem is new. Symptoms have improved. UTI on Admission? No. carlos 23:18 22:27 11/01/2018 20:55 Hospitalization Ordered by Annmarie Carrasco MD for Inpatient carlos Admission. Preliminary diagnosis is Dyspnea; Edema, unspecified; Unspecified combined systolic (congestive) and diastolic (congestive) heart failure; Hypoxemia; Unspecified kidney failure; Chronic obstructive pulmonary disease, unspecified. Bed requested for Telemetry/MedSurg (Inpatient). Status is Inpatient Admission. Condition is Fair. Problem is new. Symptoms have improved. UTI on Admission? No. ar5 23:18 23:18 11/01/2018 20:55 Hospitalization Ordered by Annmarie Carrasco MD for Inpatient carlos Admission. Preliminary diagnosis is Dyspnea; Edema, unspecified; Unspecified combined systolic (congestive) and diastolic (congestive) heart failure; Hypoxemia; Unspecified kidney failure; Chronic obstructive pulmonary disease, unspecified; Pleural effusion in conditions classified elsewhere; Atelectasis; Ascites. Bed requested for Telemetry/MedSurg (Inpatient). Status is Inpatient Admission. Condition is Fair. Problem is new. Symptoms have improved. UTI on Admission? No. carlos 23:19 23:18 11/01/2018 20:55 Hospitalization Ordered by Annmarie Carrasco MD for Inpatient carlos Admission. Preliminary diagnosis is Dyspnea; Edema, unspecified; Unspecified combined systolic (congestive) and diastolic (congestive) heart failure; Hypoxemia; Unspecified kidney failure; Chronic obstructive pulmonary disease, unspecified; Pleural effusion in conditions classified elsewhere; Atelectasis; Ascites. Bed requested for Telemetry/MedSurg (Inpatient). Status is Inpatient Admission. Condition is Fair. Problem is new. Symptoms have improved. UTI on Admission? Yes. carlos 23:59 23:19 11/01/2018 20:55 Hospitalization Ordered by Annmarie Carrasco MD for Inpatient ea Admission. Preliminary diagnosis is Dyspnea; Edema, unspecified; Unspecified combined systolic (congestive) and diastolic (congestive) heart failure; Hypoxemia; Unspecified kidney failure; Chronic obstructive pulmonary disease, unspecified; Pleural effusion in conditions classified elsewhere; Atelectasis; Ascites; Unspecified cirrhosis of liver. Bed requested for Telemetry/MedSurg (Inpatient). Status is Inpatient Admission. Condition is Fair. Problem is new. Symptoms have improved. UTI on Admission? Yes. carlos
--- NOTE | 2018-11-01 20:57 | ER ---
Nurse's Notes [facility] Name: Christy Priest Age: 63 yrs Sex: Female : 1955 Arrival Date: 11/01/2018 Time: 19:13 Bed 7 Private MD: Diagnosis: Dyspnea;Edema, unspecified;Unspecified combined systolic (congestive) and diastolic (congestive) heart failure;Hypoxemia;Unspecified kidney failure;Chronic obstructive pulmonary disease, unspecified;Pleural effusion in conditions classified elsewhere;Atelectasis;Ascites;Unspecified cirrhosis of liver Presentation: 11/01 19:14 Presenting complaint: EMS states: Called to pt's residence, pt complaining of SOB, and bp swelling in lower extremities. Pt SOB resolved after A\T\A treatment. Transition of care: patient was not received from another setting of care. Onset of symptoms was November 01, 2018. Risk Assessment: Do you want to hurt yourself or someone else? Patient reports no desire to harm self or others. Initial Sepsis Screen: Does the patient meet any 2 criteria?. Initial Sepsis Screen: Does the patient have a suspected source of infection? No. Patient's initial sepsis screen is negative. Care prior to arrival: BGL 181, A\T\A treatment, BP: 114/57, HR: 62 RR: 22 , 98% on breathing treatment. 19:14 Method Of Arrival: EMS: [facility] bp 19:14 Acuity: DENNY 2 bp Triage Assessment: 19:23 General: Appears uncomfortable, Behavior is calm, cooperative, appropriate for age. bp Pain: Complains of pain in generalized pain. Neuro: Level of Consciousness is awake, alert, obeys commands, Oriented to person, place, time, situation. Cardiovascular: Patient's skin is warm and dry. Respiratory: Reports shortness of breath at rest Airway is patent Respiratory effort is even, labored, Respiratory pattern is regular, symmetrical, Breath sounds are diminished Onset: The symptoms/episode began/occurred today, the patient has mild shortness of breath. GI: Abdomen is round distended. Derm: Skin is pale, Skin temperature is warm. Derm: adrian lower extremity edema, weeping noted. Historical: - Allergies: 19:22 Augmentin; bp 19:22 basil; bp 19:22 Morphine; bp 19:22 Nitroglycerin; bp 19:22 Tramadol HCl; bp 19:22 Trazodone; bp 19:22 Vancomycin; bp - Home Meds: 19:22 Plavix Oral [Active]; Lasix Oral [Active]; insulin [Active]; Hydralazine Oral [Active]; bp gabapentin Oral [Active]; - PMHx: 19:22 uterine cancer; triple bypass; Hypertension; High Cholesterol; ESRD; Diabetes - IDDM; bp COPD; CHF; - Immunization history:: Adult Immunizations up to date. - Social history:: Smoking status: Patient/guardian denies using tobacco. - Ebola Screening: : No symptoms or risks identified at this time. Screenin:19 Abuse screen: Denies threats or abuse. Nutritional screening: No deficits noted. bp Tuberculosis screening: No symptoms or risk factors identified. Fall Risk None identified. Assessment: 19:23 General: Appears uncomfortable, Behavior is calm, cooperative, appropriate for age. ea Pain: Complains of pain in generalized pain. Neuro: Level of Consciousness is awake, alert, obeys commands, Oriented to person, place, time, situation. Cardiovascular: Patient's skin is warm and dry. Respiratory: Airway is patent Respiratory effort is even, labored, Respiratory pattern is regular, symmetrical. GI: Abdomen is distended. Derm: adrian lower extremity edema. 20:40 Reassessment: Patient and/or family updated on plan of care and expected duration. Pain ea level reassessed. Patient is alert, oriented x 3, equal unlabored respirations, skin warm/dry/pink. 22:17 Reassessment: Patient and/or family updated on plan of care and expected duration. Pain ea level reassessed. Pt alert and oriented, currently on Bipap, tolerating well. No s/s of pain or discomfort noted at this time. 23:28 Reassessment: pt is A\T\O x 4, resp unlabored, NC in place, IV sites intact with no bb erythema or edema noted. Report called to Johana VANEGAS for room 422. Vital Signs: 19:22 BP 104 / 55; Pulse 61; Resp 20; Temp 97.8; Pulse Ox 98% on Nebulizer Mask; Weight 75.75 bp kg; Height 5 ft. 7 in. (170.18 cm); Pain 9/10; 20:30 BP 109 / 52; Pulse 61; Resp 20; Pulse Ox 95% ; ea 21:51 BP 128 / 65; Pulse 57; Resp 19; Pulse Ox 94% ; ea 22:15 BP 130 / 67; Pulse 57; Resp 18; Pulse Ox 95% ; ea 23:45 BP 117 / 53; Pulse 57; Resp 18; Temp 97; Pulse Ox 95% on R/A; ea 19:22 Body Mass Index 26.16 (75.75 kg, 170.18 cm) bp ED Course: 19:10 Arm band placed on right wrist. Patient placed in an exam room, on a stretcher, on bp oxygen, on teletypesetter monitor, on pulse oximetry. 19:13 Patient arrived in ED. bp 19:19 Triage completed. bp 19:20 Patient has correct armband on for positive identification. Placed in gown. Bed in low bp position. Call light in reach. Side rails up X2. 19:23 Alessio Parry MD is Attending Physician. carlos 19:40 Inserted saline lock: 18 gauge in right antecubital area, using aseptic technique. ea Blood collected. 19:55 Greene cath inserted, using sterile technique, 16 Fr., by wv, balloon inflated, to ea gravity drainage. 20:01 Ana Menjivar, GUILHERME is Primary Nurse. ea 20:07 XRAY Chest (1 view) In Process Unspecified. EDMS 20:50 Annmarie Carrasco MD is Hospitalizing Provider. carlos 21:55 No provider procedures requiring assistance completed. ea 21:55 Patient admitted, IV remains in place. ea Administered Medications: 20:16 Drug: Zofran 4 mg Route: IVP; Site: right antecubital; ea 21:00 Follow up: Response: No adverse reaction ea 20:18 Drug: Pepcid 20 mg Route: IVP; Site: right antecubital; ea 21:00 Follow up: Response: No adverse reaction ea 20:20 Drug: Dilaudid 0.5 mg Route: IVP; Site: right antecubital; ea 21:00 Follow up: Response: No adverse reaction ea 20:22 Drug: Lasix 40 mg Route: IVP; Site: right antecubital; ea 21:56 Follow up: Response: No adverse reaction ea 20:22 Drug: SOLU-Medrol 125 mg Route: IVP; Site: right antecubital; ea 20:30 Follow up: Response: No adverse reaction ea 20:23 Drug: Xopenex 2.5 mg Route: Inhalation; ea 21:56 Follow up: Response: No adverse reaction ea 20:23 Drug: AtroVENT Aerosol 0.5 mg Route: Inhalation; ea 22:03 Drug: Lasix 20 mg Route: IVP; Site: right antecubital; ea 23:52 Follow up: Response: No adverse reaction ea 22:33 Drug: Grahn 10 mg-325 mg 1 tabs Route: PO; ea 23:52 Follow up: Response: No adverse reaction ea 23:52 Drug: Rocephin - (cefTRIAXone) 1 grams Route: IVPB; Infused Over: 30 mins; Site: right ea antecubital; 23:58 Follow up: Response: No adverse reaction; IV Status: Completed infusion; IV Intake: 10mlea Intake: 23:58 IV: 10ml; Total: 10ml. ea Outcome: 20:55 Decision to Hospitalize by Provider. carlos 21:56 Instructed on the need for admit. ea 23:31 Admitted to Tele accompanied by tech, via stretcher, room 422, with chart, Report bb called to Johana VANEGAS 23:31 Condition: stable 23:59 Patient left the ED. ea Signatures: Dispatcher [employer] Alessio Milian MD MD cha Ballard, Brenda, RN RN Ana Fritz, RN RN Jose Cruz Aguero, RN RN bp
[2018-11-01 21:04] LABS: Albumin 2.7 g/dL (3.4-5.0); Bilirubin Direct 0.2 mg/dL (0-0.2); Bilirubin Total 0.5 mg/dL (0.2-1.0); Magnesium 1.9 mg/dL (1.8-2.4); Potassium 4.2 mmol/L (3.5-5.1); Protein, Total 6.7 g/dL (6.4-8.2); Troponin (Emerg Dept Use Only) 0.04 ng/mL (0.0-0.045)
[2018-11-01] MEDS ORDERED: FUROSEMIDE 20 MG/ 2ML VIAL ONE (21:57)
[2018-11-01] MEDS ORDERED: MORPHINE 2 MG/ML SYR IV PRN (22:19)
[2018-11-01] MEDS ORDERED: ACETAMINOPHEN 500 MG TAB PO PRN (22:19)
[2018-11-01] MEDS ORDERED: FUROSEMIDE 40 MG/4 ML VIAL IV SCH (23:00)
[2018-11-01] MEDS ORDERED: CEFTRIAXONE/SWI 1gm 1 GM/10 ML SYR ONE (23:12)
[2018-11-02 00:02] LABS: Urine Color YELLOW
[2018-11-02 00:03] LABS: Urine Appearance TURBID; Urine Blood 3+ (NEG); Urine Glucose NEGATIVE (NEG); Urine Microscopic Reflex ORDER UMIC; Urine Protein 3+ (NEG); Urine Specific Gravity 1.025 (1.005-1.030); Urine pH 5.5 (5.0-7.0)
[2018-11-02 00:04] LABS: Urine Bacteria >50 /HPF (<20); Urine Culture Reflex Order NOT NEEDED; Urine RBC >50 /HPF (NONE SEEN)
[2018-11-02 00:07] LABS: Urine Bilirubin NEGATIVE (NEG)
[2018-11-02] MEDS ORDERED: FUROSEMIDE 20 MG/ 2ML VIAL IV ONE (01:19)
[2018-11-02] MEDS: HYDROCODONE/APAP 10/325 TAB PO PRN ×3 (01:55→20:47)
[2018-11-02] MEDS: NICOTINE 14 MG/PAT TD SCH ×2 (02:17→08:59)
[2018-11-02 04:27] LABS: Absolute Lymphocytes (CBC) 0.6 K/uL (0.7-4.9); Basophils % 0.1 % (0-1.3); Hematocrit 34.7 % (36.0-45.0); Lymphocytes % 8.8 % (15.3-44.8); MPV 8.3 fL (7.6-11.3); RBC Red Blood Cell Count 4.09 M/uL (3.86-4.86)
[2018-11-02 04:28] LABS: Protime INR 1.12
[2018-11-02 04:33] LABS: Albumin 2.5 g/dL (3.4-5.0); Bilirubin Total 0.4 mg/dL (0.2-1.0); Potassium 4.6 mmol/L (3.5-5.1); Protein, Total 6.4 g/dL (6.4-8.2)
[2018-11-02 05:04] LABS: Blood Morphology Comment NOT SEEN (NOT SEEN); Platelet Estimate ADEQ
--- NOTE | 2018-11-02 07:44 | EKG ---
Test Date: 2018-11-01 Test Time: 19:33:29 Sourcing Coordinator: ARIA MEASUREMENT RESULTS: Intervals: Rate: 60 MD: 172 QRSD: 102 QT: 452 QTc: 452 [place]: P: 53 MD: 172 QRS: 120 T: -86 INTERPRETIVE STATEMENTS: Normal sinus rhythm Right axis deviation Low voltage QRS Cannot rule out Anterior infarct, age undetermined Abnormal ECG Compared to ECG 09/12/2018 19:34:45 No significant changes Electronically Signed On 11-02-18 07:42:29 CDT by Alvaro Go
[2018-11-02] MEDS ORDERED: FUROSEMIDE 40 MG/4 ML VIAL IV SCH ×2 (09:00→17:00)
--- NOTE | 2018-11-02 09:04 | P.HP ---
Certification for Inpatient Patient admitted to: Inpatient With expected LOS: >2 Midnights Patient will require the following post-hospital care: None Practitioner: I am a practitioner with admitting privileges, knowledge of patient current condition, hospital course, and medical plan of care. Services: Services provided to patient in accordance with Admission requirements found in Title 42 Section 412.3 of the Code of Federal Regulations Patient History Date of Service: 11/01/18 Reason for admission: Fluid overload; CHF diastolic dysfunction; chronic kidney disease stage 5 History of Present Illness: Patient is a 63-year-old female who came the hospital with shortness of breath. Patient was in respiratory distress. Patient has been given diuretics and has clinically started feeling better. Patient's renal function has declined quite a bit. Patient be admitted to the hospital for further evaluation. Will get Nephrology consultation. Patient has had multiple medical issues. Patient has had Coronary artery disease along with uterine cancer. Patient has had bypass surgery as well. Patient's renal function has been declining again her urine output has been diminishing. Will get workup with Nephrology assistance at this time. Allergies morphine Allergy (Severe, Verified 08/10/18 19:54) Anaphylaxis vancomycin Allergy (Intermediate, Verified 08/10/18 19:54) Anaphylaxis amoxicillin [From Augmentin] Allergy (Verified 08/10/18 19:54) Anaphylaxis basil Allergy (Verified 08/10/18 19:54) Anaphylaxis clavulanic acid [From Augmentin] Allergy (Verified 08/10/18 19:54) Anaphylaxis nitroglycerin Adverse Reaction (Mild, Verified 07/29/17 03:02) Nausea/Vomiting Home Medications: Allopurinol [Zyloprim*] 1 tab PO BID 11/02/18 Aspirin Chewable [Aspirin Chewable*] 1 tab PO DAILY 11/02/18 Atorvastatin Calcium [Lipitor] 1 tab PO DAILY 11/02/18 Bromfenac Sodium 1 gtt OPTH BID 11/02/18 Bupropion HCl [Wellbutrin] 1 tab PO DAILY 11/02/18 Carvedilol [Coreg*] 1 tab PO BID 11/02/18 Ciprofloxacin HCl [Ciprofloxacin 0.3% Ophth Irene] 1 gtt OPTH BID 11/02/18 Difluprednate [Durezol 0.05%] 1 gtt OPTH QID 11/02/18 Furosemide [Lasix*] 1 tab PO BID 11/02/18 Gabapentin [Neurontin*] 1 tab PO TID 11/02/18 Insulin Detemir [Levemir] See Protocol SQ BID 11/02/18 Isosorbide Mononitrate [Isosorbide Mononitrate ER] 1 tab PO DAILY 11/02/18 Melatonin 1 tab PO BEDTIME PRN PRN 11/02/18 Nicotine [Nicoderm*] 1 patch TD DAILY 11/02/18 Nifedipine [Nifedipine ER] 1 tab PO DAILY 11/02/18 - Past Medical/Surgical History Has patient received pneumonia vaccine in the past: Yes Diabetic: Yes -: COPD, former tobacco use -: Hypertension -: CAD, CABG x4 vessels (August 2017) -: Diabetes mellitus type 2, insulin-dependent -: Chronic diastolic CHF -: Uterine cancer status post hysterectomy -: Chronic renal disease, stage IV -: TB as a child - 2017 -: Hyperlipidemia -: Chronic renal disease, stage IV -: Iron deficiency anemia -: Obesity -: Rectal surgery -: Hysterectomy -: Cholecystectomy -: Gastric surgery -: Appendectomy -: CABG x4 vessel -: Femoral popliteal bypass -: Left great toe amputation Psychosocial/ Personal History: The patient is a . Her son lives with her. She has 3 children. - Family History Father Medical History: Heart disease, Hypertension, Stroke, Cancer Mother Medical History: GI disease Sister Medical History: Lung disease, Diabetes Brother Medical History: Heart disease, Hypertension, Diabetes Notes: - Social History Smoking Status: Former smoker Alcohol use: No CD- Drugs: No Caffeine use: Yes Place of Residence: Home Review of Systems 10-point ROS is otherwise unremarkable Physical Examination - Vital Signs Temperature: 97.1 F Blood Pressure: 145/70 Pulse: 65 Respirations: 18 Pulse Ox (%): 97 - Physical Exam General: Alert, In no apparent distress, Oriented x3 HEENT: Atraumatic, PERRLA, Mucous membr. moist/pink, EOMI, Sclerae nonicteric Neck: Supple, 2+ carotid pulse no bruit, No LAD, Without JVD or thyroid abnormality Respiratory: Crackles/rales Cardiovascular: Regular rate/rhythm, Normal S1 S2, No murmurs Gastrointestinal: Normal bowel sounds, Soft and benign, Non-distended, No tenderness Integumentary: No rashes, Tenderness/swelling Neurological: Normal speech, Normal tone, Sensation intact, Cranial nerves 3-12 intact, Normal affect, Abnormal gait, Abnormal strength Lymphatics: No axilla or inguinal lymphadenopathy - Studies Laboratory Data (last 24 hrs) 11/01/18 19:40: PT 13.1 H, INR 1.11 11/01/18 19:40: WBC 9.7, Hgb 11.5 L, Hct 36.5, Plt Count 214 11/01/18 19:40: Sodium 139, Potassium 4.2, BUN 54 H, Creatinine 2.80 H, Glucose 139 H, Magnesium 1.9, Total Bilirubin 0.5, AST 16, ALT 12, Alkaline Phosphatase 177 H, Lipase 115 Assessment & Plan - Problems (Diagnosis) (1) Fluid overload Current Visit: Yes Status: Acute (2) Diastolic CHF, acute Current Visit: Yes Status: Acute (3) Acute on chronic diastolic CHF (congestive heart failure) Onset Date: 03/17/18 Current Visit: No Status: Chronic (4) CAD (coronary artery disease) Onset Date: 10/03/17 Current Visit: No Status: Chronic Qualifiers: Coronary Disease-Associated Artery/Lesion type: [place] artery [place] vs. transplanted heart: [place] heart Associated angina: with stable angina Qualified Code(s): I25.118 - Atherosclerotic heart disease of [place] coronary artery with other forms of angina pectoris (5) COPD exacerbation Current Visit: No Status: Chronic (6) Diabetes mellitus Onset Date: 04/28/15 Current Visit: No Status: Chronic (7) History of coronary artery bypass graft Current Visit: No Status: Chronic (8) History of femoropopliteal bypass Current Visit: No Status: Chronic (9) Hyperlipidemia Onset Date: 10/03/17 Current Visit: No Status: Chronic Qualifiers: Hyperlipidemia type: mixed hyperlipidemia Qualified Code(s): E78.2 - Mixed hyperlipidemia (10) Hypertension Current Visit: No Status: Chronic Qualifiers: Hypertension type: essential hypertension Qualified Code(s): I10 - Essential (primary) hypertension - Plan 1. Echocardiogram 2. Continue with diuretics 3. Beta gina 4. Cardiology consultation 5. Strict I's and O's 6. Repeat CXR 7. Daily weights 8. Strict blood pressure and blood sugar control 9. Continue with cardiac meds 10. GI and DVT prophylaxis Discharge Plan: Home Plan to discharge in: Greater than 2 days - Advance Directives Does patient have a Living Will: No Does patient have a Durable POA for Healthcare: Yes - Code Status/Comfort Care Code Status Assessed: Yes Code Status: Full Code Critical Care: No Time Spent Managing PTS Care (In Minutes): 40
[2018-11-02] MEDS: CEFTRIAXONE/SWI 1gm 1 GM/10 ML SYR IV SCH (10:21)
--- NOTE | 2018-11-02 11:09 | P.PN ---
Subjective Date of Service: 11/02/18 Chief Complaint: Fluid overload; CHF diastolic dysfunction; chronic kidney disease stage 5 Patient seen and examined at bedside with RN. Chart reviewed. Case discussed with nephrology at this time. Patient states that he feels much better than before. Review of Systems 10-point ROS is otherwise unremarkable Physical Examination - Vital Signs Temperature: 97.1 F Blood Pressure: 145/70 Pulse: 65 Respirations: 18 Pulse Ox (%): 97 - Physical Exam General: Alert, In no apparent distress HEENT: Atraumatic, PERRLA, EOMI Neck: Supple, JVD not distended Respiratory: Normal air movement, Crackles/rales Cardiovascular: Regular rate/rhythm, Normal S1 S2 Gastrointestinal: Normal bowel sounds, No tenderness Musculoskeletal: No tenderness Integumentary: No rashes Neurological: Normal speech, Normal tone, Normal affect Lymphatics: No axilla or inguinal lymphadenopathy - Studies Laboratory Data (last 24 hrs) 11/01/18 19:40: PT 13.1 H, INR 1.11 11/01/18 19:40: WBC 9.7, Hgb 11.5 L, Hct 36.5, Plt Count 214 11/01/18 19:40: Sodium 139, Potassium 4.2, BUN 54 H, Creatinine 2.80 H, Glucose 139 H, Magnesium 1.9, Total Bilirubin 0.5, AST 16, ALT 12, Alkaline Phosphatase 177 H, Lipase 115 Medications List Reviewed: Yes Assessment And Plan - Current Problems (Diagnosis) (1) Acute exacerbation of CHF (congestive heart failure) Onset Date: 02/04/17 Current Visit: No Status: Acute Plan: Acute exacerbation of chronic congestive heart failure most likely secondary to medication noncompliance versus diet noncompliance -currently on IV Lasix 40 mg b.i.d. -will continue that here in the hospital -last echocardiogram consistent with systolic and diastolic dysfunction -will monitor patient here closely if no improvement will get cardiology consultation. Qualifiers: Qualified Code(s): I50.23 - Acute on chronic systolic (congestive) heart failure (2) Acute renal failure superimposed on stage 3 chronic kidney disease Current Visit: No Status: Acute Plan: Acute on chronic kidney disease stage 3 -most likely secondary to volume overload -nephrology is consulted. Awaiting recommendations at this time -continue with IV Lasix at this time as well Qualifiers: Acute renal failure type: unspecified Qualified Code(s): N17.9 - Acute kidney failure, unspecified; N18.3 - Chronic kidney disease, stage 3 (moderate) (3) CAD (coronary artery disease) Onset Date: 10/03/17 Current Visit: No Status: Chronic Qualifiers: Coronary Disease-Associated Artery/Lesion type: [place] artery [place] vs. transplanted heart: [place] heart Associated angina: with stable angina Qualified Code(s): I25.118 - Atherosclerotic heart disease of [place] coronary artery with other forms of angina pectoris (4) COPD (chronic obstructive pulmonary disease) Onset Date: 02/04/17 Current Visit: No Status: Chronic Qualifiers: COPD type: chronic bronchitis Chronic bronchitis type: mucopurulent Qualified Code(s): J41.1 - Mucopurulent chronic bronchitis (5) Diabetes mellitus Onset Date: 04/28/15 Current Visit: No Status: Chronic (6) GERD (gastroesophageal reflux disease) Onset Date: 10/03/17 Current Visit: No Status: Chronic Qualifiers: Esophagitis presence: without esophagitis Qualified Code(s): K21.9 - Gastro -esophageal reflux disease without esophagitis (7) History of - hypertension Current Visit: No Status: Chronic (8) Hyperlipidemia Onset Date: 10/03/17 Current Visit: No Status: Chronic Qualifiers: Hyperlipidemia type: mixed hyperlipidemia Qualified Code(s): E78.2 - Mixed hyperlipidemia Discharge Plan: Home Plan to discharge in: Greater than 2 days - Code Status/Comfort Care Code Status Assessed: Yes Critical Care: No
[2018-11-02] MEDS ORDERED: FUROSEMIDE 40 MG/4 ML VIAL IV ONE (11:21)
--- NOTE | 2018-11-02 12:12 | RAD REPORT ---
EXAM DESCRIPTION: CT - Chest Abd Pelvis Wo Con - 11/01/2018 10:56 pm CLINICAL HISTORY: Shortness of breath and distention. COMPARISON: None. TECHNIQUE: CT scan of the chest, abdomen, and pelvis without IV contrast. This exam was performed ac cording to our departmental dose-optimization program, which includes automated exposure control, adj ustment of the mA and/or kV according to patient size and/or use of iterative reconstruction techniqu e. FINDINGS: There is a moderate right and trace left pleural effusion with adjacent atelectasis. There is also a consolidation in the right lower lobe. No pneumothorax. The heart size is enlarged without pericardial effusion. The thoracic aorta is normal caliber. The thyroid gland is unremarkable. No me diastinal or axillary adenopathy. Limited evaluation for hilar adenopathy without IV contrast. The liver has a cirrhotic morphology. There has been a prior cholecystectomy. Spleen, pancreas, and a drenal glands are unremarkable. The kidneys are atrophic. A Greene catheter in the urinary bladder is present. Surgical clips in the bilateral pelvic sidewall. No evidence of bowel obstruction or acute e daniela is. The appendix is not well visualized. There is a large amount of abdominopelvic ascites. Diff use body wall anasarca. No intraperitoneal free air. The abdominal aorta is moderately atheroscleroti c. No acute bony findings are identified. IMPRESSION: 1. Findings of fluid overload with moderate right and trace left pleural effusions, la rge amount of abdominopelvic ascites, and body wall anasarca. 2. Right lower lobe atelectasis/consolidation. Electronically signed by: Patrick Marx MD 11/01/2018 11:08 PM CDT Due to temporary technical issues with the PACS/Fluency reporting system, reports are being signed by the in house radiologist as a courtesy to ensure prompt reporting. The interpreting radiologist is f ully responsible for the content of the report.
[2018-11-02] MEDS: METOLAZONE 5 MG TABLET PO SCH (13:03)
[2018-11-02] MEDS: GABAPENTIN 100 MG CAP PO SCH ×2 (13:04→20:48)
[2018-11-02] MEDS ORDERED: GLUCAGON 1 MG/VIAL IM PRN (13:12)
[2018-11-02] MEDS ORDERED: D50W 25 GM/50 ML SYRINGE IV PRN (13:12)
--- NOTE | 2018-11-02 16:25 | P.PN ---
Subjective Date of Service: 11/02/18 Chief Complaint: Fluid overload; CHF diastolic dysfunction; chronic kidney disease stage 5 Subjective: Improving (feels better.) Review of Systems 10-point ROS is otherwise unremarkable Respiratory: SOB with Excertion Cardiovascular: Edema Gastrointestinal: Distention (improving with diuresis. ) Physical Examination - Vital Signs Temperature: 97.0 F Blood Pressure: 168/81 Pulse: 77 Respirations: 16 Pulse Ox (%): 95 - Physical Exam General: Alert, In no apparent distress HEENT: Atraumatic, PERRLA, EOMI Neck: Supple, JVD not distended Respiratory: Clear to auscultation bilaterally, Normal air movement Cardiovascular: Regular rate/rhythm, Normal S1 S2, Edema (2+) Gastrointestinal: Normal bowel sounds, No tenderness, Distended (not tense ) Musculoskeletal: No tenderness Integumentary: No rashes Neurological: Normal speech, Normal tone, Normal affect Lymphatics: No axilla or inguinal lymphadenopathy - Studies Laboratory Data (last 24 hrs) 11/01/18 19:40: PT 13.1 H, INR 1.11 11/01/18 19:40: WBC 9.7, Hgb 11.5 L, Hct 36.5, Plt Count 214 11/01/18 19:40: Sodium 139, Potassium 4.2, BUN 54 H, Creatinine 2.80 H, Glucose 139 H, Magnesium 1.9, Total Bilirubin 0.5, AST 16, ALT 12, Alkaline Phosphatase 177 H, Lipase 115 Medications List Reviewed: Yes Assessment & Plan - Problems (Diagnosis) (1) Acute renal failure superimposed on stage 4 chronic kidney disease Current Visit: Yes Status: Acute Plan: Pt being seen by Dr. Theodore. Will continue increased lasix dosage. Monitor the gfr. Her baseline is 20-22. Will see how well she does. Qualifiers: Acute renal failure type: unspecified Qualified Code(s): N17.9 - Acute kidney failure, unspecified; N18.4 - Chronic kidney disease, stage 4 (severe) (2) Diastolic CHF, acute Current Visit: Yes Status: Acute Plan: can reorder an echo. The last one she had was in Jan. (3) Diabetes mellitus with insulin therapy Onset Date: 01/07/14 Current Visit: No Status: Chronic Plan: restart insulin and sliding scale. (4) Hypertension Current Visit: No Status: Chronic Plan: Not well controlled. Will adjust her medications. Qualifiers: Hypertension type: essential hypertension Qualified Code(s): I10 - Essential (primary) hypertension Discharge Plan: Home Plan to discharge in: Greater than 2 days - Code Status/Comfort Care Code Status Assessed: No Physician Review: Patient Assessed, Agree with Above Assessment and Plan Critical Care: No Time Spent Managing Pts Care (In Minutes): 25
[2018-11-02] MEDS: INSULIN -REGULAR HUMAN 50 UNIT/0.5 ML ML SQ SCH ×2 (17:57→20:49)
[2018-11-02] MEDS: ATORVASTATIN 40 MG TAB PO SCH (20:48)
[2018-11-02] MEDS: ALLOPURINOL 100 MG TAB PO SCH (20:48)
[2018-11-02] MEDS: INSULIN GLARGINE 100 UNITS/ML SQ SCH (20:49)
[2018-11-02] MEDS: MELATONIN 5 MG TABLET PO PRN (20:50)
[2018-11-02] MEDS: BROMFENAC SODIUM OPTH SCH (20:51)
[2018-11-02] MEDS ORDERED: CARVEDILOL 12.5 MG TAB PO SCH (21:00)
[2018-11-02] MEDS ORDERED: FUROSEMIDE 100 MG in NA CHLORIDE 0.9% 90 ML IV SCH (21:00)
[2018-11-02] MEDS ORDERED: HOME MED 1 EA UNK (Insulin Detemir [Levemir] 10 UNITS) SQ SCH (21:00)
[2018-11-02] MEDS ORDERED: FUROSEMIDE 100 MG/10 ML VIAL IV ONE (22:05)
[2018-11-02] MEDS ORDERED: NA CHLORIDE 0.9% 100 ML ONE (22:06)
--- NOTE | 2018-11-03 02:08 | CON ---
Date of Consultation: 11/02/2018 Chief Complaint: Acute on chronic kidney injury. History Of Present Illness: The patient presented to the hospital because of severe shortness of breath and fluid overload with anasarca. The patient has multiple medical problems. Previously, she was admitted on many occasions for CHF exacerbation with cardiorenal syndrome and acute kidney injury. Patient has chronic kidney disease stage 4, baseline creatinine level is 1.9 to 2.2. On occasion, the creatinine level was up to 3.12 when she had blood work done in May 2018. The patient came to the hospital and was found to have a creatinine of 2.96. She has severe fluid overload. Urine output has recently declined despite she was taking diuretics and during this hospitalization, the diuretic was increased to Lasix 80 mg twice a day and she was started on Zaroxolyn. Urine output is not advancing. The patient has nonoliguric urine output, although she is not adequately responding to diuretics. The patient is a 63-year-old female with multiple medical problems including history of stage 4 chronic kidney disease, congestive heart failure, diastolic dysfunction. She presented to the hospital with fluid overload, shortness of breath, and anasarca. She was complaining of dyspnea on exertion. Denies PND or orthopnea. Urine output has been diminishing over the last several days. The patient denies nonsteroidal anti-inflammatory medication. The patient has history of chronic kidney disease stage 4, gout, hypertension. Review of Systems: Constitutional: Denies fever, chills. Eyes: Denies vision changes. Ears, Nose, Mouth, and Throat: Denies sore throat, earache. Respiratory: Complains of dyspnea on exertion. Denies wheezing. Denies PND, orthopnea. GI: Denies nausea, vomiting. : Denies dysuria, hematuria. Musculoskeletal: Denies muscle aches or joint swelling. All other systems reviewed and all are negative. Past Medical History: History of COPD exacerbation, former tobacco user, hypertension, coronary artery disease, CABG 4 vessel disease in August 2018, diabetes mellitus, diabetic kidney disease, hypertensive heart and kidney disease, chronic diastolic congestive heart failure exacerbation, uterine cancer , status post hysterectomy, hyperlipidemia, iron deficiency, rectal surgery, hysterectomy, cholecystectomy, gastric surgery, appendectomy, femoral popliteal bypass, left great toe amputation, history of osteomyelitis. Social History: Denies tobacco, alcohol, or illicit drugs. Family History: Diabetes mellitus, lung disease, heart disease, hypertension, stroke. Physical Examination: General: The patient is awake, alert, follows commands. Vital Signs: Blood pressure 145/70, heart rate 65, respiratory rate is 18, temperature is 97.1. Eyes: Anicteric sclerae. EOMI. Ears, Nose, Mouth and Throat: Oral mucosa moist. No pallor. Neck: Supple. No bruits. Lungs: Diminished breath sounds at bases. Crackles present bilaterally at bases. Heart: S1, S2. No pericardial friction rub. Abdomen: Obese, soft, nontender. No rebound. No guarding. Extremities: Edema present in both legs. Neurological: Moving extremities. Cranial nerves intact. Psychiatric: Alert and oriented x3. Normal affect. Laboratory Data: WBC 9.7, hemoglobin 11.5, hematocrit 36.5, platelet count 214. Sodium 139, potassium 4.2, BUN 54, creatinine 2.8, glucose 159, magnesium 1.9. Impression And Plan: 1. Severe fluid overload, anasarca, acute on chronic congestive heart failure with diastolic dysfunction, coronary artery disease, hypertensive heart and kidney disease, chronic kidney disease stage 4 advancing to stage 5, likely patient has end-stage renal disease. Plan is to advance diuretic and reevaluate for dialysis. We will start Lasix drip. 2. Diabetes mellitus. Continue insulin. 3. Hypertension. Continue blood pressure medication. 4. Chronic kidney disease stage 4 with acute kidney injury due to cardiorenal syndrome. Avoid nephrotoxic medication. Advance diuretics. Patient is to start Lasix drip and if the renal function does not improve, patient will need to start dialysis. JONNY/CELESTINE Voice ID: [id number] Report ID: [id number] MTDDannielle
[2018-11-03] MEDS ORDERED: cloNIDine HCl 0.1 MG TAB PO ONE (02:36)
[2018-11-03] MEDS: CARVEDILOL 25 MG TAB PO SCH ×4 (03:00→18:15)
[2018-11-03 04:23] LABS: Absolute Lymphocytes (CBC) 1.5 K/uL (0.7-4.9); Basophils % 0.2 % (0-1.3); Hematocrit 32.3 % (36.0-45.0); Lymphocytes % 19.5 % (15.3-44.8); MPV 8.3 fL (7.6-11.3)
[2018-11-03 04:34] LABS: Potassium 4.6 mmol/L (3.5-5.1)
[2018-11-03] MEDS: INSULIN -REGULAR HUMAN 50 UNIT/0.5 ML ML SQ SCH ×4 (07:30→21:17)
[2018-11-03] MEDS: FUROSEMIDE 100 MG in NA CHLORIDE 0.9% 90 ML IV SCH ×2 (08:21→17:47)
[2018-11-03] MEDS: CEFTRIAXONE/SWI 1gm 1 GM/10 ML SYR IV SCH (08:31)
[2018-11-03] MEDS: NICOTINE 14 MG/PAT TD SCH (08:32)
[2018-11-03] MEDS: BROMFENAC SODIUM OPTH SCH ×2 (08:37→21:00)
[2018-11-03] MEDS: BUPROPION HCL PO SCH (09:00)
[2018-11-03] MEDS: INSULIN GLARGINE 100 UNITS/ML SQ SCH ×2 (09:00→21:00)
[2018-11-03] MEDS ORDERED: NICOTINE 14 MG/PAT TD SCH (09:00)
[2018-11-03] MEDS: ALLOPURINOL 100 MG TAB PO SCH ×2 (10:01→21:15)
[2018-11-03] MEDS: ISOSORBIDE MONO SR 30 MG TAB PO SCH (10:01)
[2018-11-03] MEDS: NIFEDIPINE XL 60 MG TABLET PO SCH (10:01)
[2018-11-03] MEDS: ASPIRIN 81 MG CHEWABLE TABLET PO SCH (10:01)
[2018-11-03] MEDS: GABAPENTIN 100 MG CAP PO SCH ×3 (10:02→21:15)
--- NOTE | 2018-11-03 10:54 | P.PN ---
Subjective Date of Service: 11/03/18 Chief Complaint: Fluid overload; CHF diastolic dysfunction; chronic kidney disease stage 5 Subjective: Worsening Review of Systems 10-point ROS is otherwise unremarkable Physical Examination - Vital Signs Temperature: 97.0 F Blood Pressure: 170/70 Pulse: 71 Respirations: 16 Pulse Ox (%): 98 - Physical Exam General: Alert, In no apparent distress HEENT: Atraumatic, PERRLA, EOMI Neck: Supple, JVD not distended Respiratory: Clear to auscultation bilaterally, Normal air movement Cardiovascular: Regular rate/rhythm, Normal S1 S2 Gastrointestinal: Normal bowel sounds, No tenderness Musculoskeletal: No tenderness Integumentary: No rashes Neurological: Normal speech, Normal tone, Normal affect Lymphatics: No axilla or inguinal lymphadenopathy - Studies Medications List Reviewed: Yes Assessment & Plan - Problems (Diagnosis) (1) Acute renal failure superimposed on stage 4 chronic kidney disease Current Visit: Yes Status: Acute Plan: Pt gfr is not improving. Possible will start dialysis soon. Consult to Dr. Bernstein for placement. However the patient will always be high risk for surgery. Her geriatric Perioperative risk is 33.6, Mk score is greater than 11 %. However is a necessary procedure. Have discussed this with Dr. Bernstein. Will discuss with the patient. Qualifiers: Acute renal failure type: unspecified Qualified Code(s): N17.9 - Acute kidney failure, unspecified; N18.4 - Chronic kidney disease, stage 4 (severe) (2) Diastolic CHF, acute Current Visit: Yes Status: Acute Plan: can reorder an echo. The last one she had was in Jan. (3) Diabetes mellitus with insulin therapy Onset Date: 01/07/14 Current Visit: No Status: Chronic Plan: restart insulin and sliding scale. (4) Hypertension Current Visit: No Status: Chronic Plan: Not well controlled. Will adjust her medications. Qualifiers: Hypertension type: essential hypertension Qualified Code(s): I10 - Essential (primary) hypertension Discharge Plan: Home Plan to discharge in: Greater than 2 days - Code Status/Comfort Care Code Status Assessed: No Physician Review: Patient Assessed, Agree with Above Assessment and Plan Critical Care: No Time Spent Managing Pts Care (In Minutes): 30
[2018-11-03] MEDS: METOLAZONE 5 MG TABLET PO SCH (11:22)
--- NOTE | 2018-11-03 14:19 | RAD REPORT ---
EXAM DESCRIPTION: US - Renal Ultrasound-Complete - 11/03/2018 2:02 pm CLINICAL HISTORY: Acute renal insufficiency COMPARISON: None. FINDINGS: The right kidney measures 10 cm with an increased echotexture. The left kidney measures 11 cm with an increased echotexture. A 1 centimeter left renal cyst Hydronephrosis is not seen. Bladder decompressed as a Greene catheter is in place Small to moderate IMPRESSION: Increased renal echotexture consistent with parenchymal disease
--- NOTE | 2018-11-03 16:20 | PN ---
Date of Progress Note: 11/03/2018 Subjective: Patient is still complaining of shortness of breath. Patient's kidney function continue s to decline, had significant urine output, but still has shortness of breath. We are going to go ah ead and proceed with a PermCath placement. Physical Examination: Vital Signs: When I saw the patient, blood pressure 170/70, pulse of 71. Chest: Crackles bilateral. Heart: S1 and S2 regular. Abdomen: Soft, nontender. Extremities: +3 edema. Laboratory Data: WBC 7.5, H and H of 10.2/32.3. Sodium of 137, potassium 4.6, bicarb 25, BUN 64, cr eatinine 3.1, GFR of 15, calcium 7.8. Current Medications: The patient on include Lasix drip, aspirin, ceftriaxone, atorvastatin, carvedil ol, clonidine, isosorbide, nifedipine, gabapentin, and allopurinol. Assessment And Plan: 1.Acute kidney injury on advanced chronic kidney disease secondary to diabetes and congestive heart failure exacerbation. I am going to go ahead and proceed to dialysis catheter placement to initiate dialysis today. I have a long discussion with the patient. Apparently, patient prefers to do PD. I explained to the patient that in the acute phase, we better utilize hemodialysis to establish better volume control and because not feasible to place a PD catheter right now in our facility. Then afte r that, if patient is interested in PD, we can switch her to PD. We will arrange for the patient to have dialysis today and tomorrow. Continue current diuresis and we will monitor the patient. 2.Hypertension, not controlled. We will utilize blood pressure for more dialysis and ultrafiltratio n. 3.Congestive heart failure exacerbation. Continue diuresis. Continue current treatment. We will t ry to establish better volume control with the patient. 4.Diabetes as by hospitalist. NATI/CELESTINE Voice ID: [id number] Report ID: [id number]
[2018-11-03] MEDS: HYDROCODONE/APAP 10/325 TAB PO PRN (19:42)
--- NOTE | 2018-11-03 21:02 | CON ---
Date of Consultation: 11/03/2018 Brief History Of Present Illness: Patient is a 63-year-old female, who was present to the [facility] on 11/01/2018 with significant shortness of breath and respiratory distress. Given diuretics and had some improvement. Renal function had been declining over the admission and for some time pr ior to this, she presented with the above-stated complaints. She has been admitted on multiple occas ions with CHF exacerbation and cardiorenal syndrome with acute kidney injury. She is normally a CKD stage 4. Baseline creatinine is between 1.9 to 2.2 with a creatinine level the creeps up to 3.12 fro m May 2018. She has severe fluid overload and urine output declining despite diuretic therapy. She was deemed appropriate for initiation of hemodialysis and had the discussion with Dr. Kassie thomasarding this. Past Medical History: Significant for COPD, former tobacco use, hypertension, coronary artery diseas e, CABG x4 vessels in August of 2017, diabetes type 2, chronic diastolic CHF, uterine cancer status pos t hysterectomy, CKD stage 4, TB as a child, hyperlipidemia, iron-deficiency anemia, obesity. Past Surgical History: 4-vessel CABG 2018, rectal surgery, hysterectomy, cholecystectomy, gastric mcwilliams rgery, appendectomy, fem-pop bypass, left great toe amputation. Family History: Father has heart disease, hypertension, stroke, cancer. Mother had GI disease. Her sister had lung disease and diabetes. Social History: She is a former smoker. Denies alcohol. Denies recreational drug use. Allergies: MORPHINE, VANCOMYCIN, AMOXICILLIN, BASAL CLAVULANIC ACID FROM AUGMENTIN, AND NITROGLYCERI N. Home Medications: Allopurinol, aspirin, Lipitor, bromfenac, bupropion, Coreg, Cipro, gabapentin, ins ulin, isosorbide mononitrate, melatonin, Nicoderm, and nifedipine. Review of Systems: Ten-point review of systems other than HPI, denies. Physical Examination: Vital Signs: At the time of my examination, her BMI is 35.6, blood pressure 187/83, pulse 59, respir atory rate 16, temperature 97.3. General: She is awake, alert, and oriented. Psychiatric: She is appropriate and conversive. HEENT: She is normocephalic. Her sclerae are anicteric. Her mucous membranes are moist. She does have JVD bilaterally with an EJ catheter on the left for IV access. Chest: Normal expansion and excursion. Cardiovascular: Regular rate and rhythm. Extremities: 2+ pitting edema in all 4 extremities with global anasarca. Laboratory Data: Reveals a white blood cell count of 7.5, hemoglobin is 10.2, hematocrit 32.3, plate let count is 190. Her last PT was 13.2, INR 1.12, PTT 32.8. Her sodium 138, potassium 4.6, chloride 106, carbon dioxide 25, BUN 64, creatinine 3.1 up from 2.96 on admission. Her glucose is 209, calci um 7.8. Her last rapid troponin was 0.02 from 0.04. CK is 56, alkaline phosphatase is 162. She had a UTI with sds-[id number]-count white blood cells and greater than 50 bacteria. She had a renal ultrasound performed as well as the chest, abdomen, and pelvis CT, which is officiall y read as findings of fluid overload with moderate right and trace left pleural effusions, large amou nt of abdominal pelvic ascites and body wall anasarca, right lower lobe atelectasis/consolidation. S he additionally had a renal ultrasound as described on 11/03, which officially read as increased loly l echotexture consistent with parenchymal disease. Assessment And Plan: This is a 63-year-old female, who comes in with fluid overload and need for ini tiation of hemodialysis due to worsening cardiorenal dysfunction and chronic kidney disease stage 4 e xacerbation. 1.Continue medical management per primary team and Dr. Fernando. 2.I have explained the risks, benefits, and alternatives of placement of a tunneled hemodialysis cat heter including, but not limited to bleeding, infection, damage to surrounding tissues, pneumothorax/collapsed lung, need for further operation and procedures. The patient agrees to procee d as indicated. MIKI/CELESTINE Voice ID: [id number] Report ID: [id number]
[2018-11-03] MEDS ORDERED: LORazepam 2 MG/ML VIAL IV ONE (21:11)
--- NOTE | 2018-11-03 21:14 | CON ---
Date of Consultation: 11/03/2018 Reason For Consultation: Congestive heart failure and cardiac clearance for hemodialysis catheter to be inserted. History Of Present Illness: Ms. Priest is 63. We have known her from previous office visits and admis sihans. She has a very complicated past medical history. She has a history of CABG, chronic diastoli c congestive heart failure, renal failure stage 4, hypertension, dyslipidemia, diabetes, and COPD. S he came in with anasarca, has been seen by Nephrology. She is now on Lasix drip and there is a plan to start hemodialysis, catheters to be inserted. Ms. Priest's last echocardiogram was in February t his year where she was noted to have an ejection fraction of 58%, left ventricular hypertrophy with d ecreased left ventricular compliance. No chest pain reported. Past Medical History: As stated above. Allergies: SHE IS ALLERGIC TO BASAL MORPHINE, VANCOMYCIN, AUGMENTIN, AND NITROGLYCERIN SUBLINGUAL. Review of Systems: Negative. Social History: Negative. Family History: Negative. Medications: Include aspirin, Lipitor, Wellbutrin, allopurinol, insulin, Coreg, Lasix, Neurontin, Im dur, Procardia, and NicoDerm patch. Physical Examination: General: She was in sinus rhythm. No acute distress. Vital Signs: Stable. Blood pressure was 170/70. She weighed 227 pounds. HEENT: Negative. Neck: Supple. No bruit. Chest: Clear. Cardiac: Revealed regular rhythm and rate with S4 gallops. Abdomen: Showed positive ascites. Extremities: Showed 2 to 3+ edema. Skin was moist. Neurologic: She was nonfocal. Pulses were decreased distally bilaterally. Diagnostic Data: EKG was nonspecific. Glucose was 353. Her creatinine was 3.16. Hemoglobin of 10. 2. Her BNP was 20,986. Impression And Plan: 1.Acute on chronic diastolic congestive heart failure with anasarca and pedal edema. 2.Acute on chronic renal failure. She is on Lasix drip. Hemodialysis is planned. I think she shou ld do well with the insertion of the catheter. I think she is at low risk. Dialysis is planned. Ne phrology is following. 3.Coronary artery disease, status post CABG, stable. 4.Hypertension, poorly controlled. 5.Dyslipidemia. 6.Diabetes, poorly controlled. 7.Chronic obstructive pulmonary disease. We will continue to follow Ms. Priest along with Nephrology and Dr. Mark. No change in medical therapy recommended at this point. JAMIA/MODL Voice ID: [id number] Report ID: [id number]
[2018-11-03] MEDS: MELATONIN 5 MG TABLET PO PRN (21:15)
[2018-11-03] MEDS: ATORVASTATIN 40 MG TAB PO SCH (21:15)
[2018-11-04] MEDS: FUROSEMIDE 100 MG in NA CHLORIDE 0.9% 90 ML IV SCH ×2 (04:25→15:04)
[2018-11-04] MEDS: INSULIN -REGULAR HUMAN 50 UNIT/0.5 ML ML SQ SCH ×4 (07:30→21:00)
[2018-11-04] MEDS: CARVEDILOL 25 MG TAB PO SCH ×2 (08:00→16:35)
[2018-11-04] MEDS: NICOTINE 14 MG/PAT TD SCH (08:35)
[2018-11-04] MEDS: CEFTRIAXONE/SWI 1gm 1 GM/10 ML SYR IV SCH (08:36)
[2018-11-04] MEDS: ISOSORBIDE MONO SR 30 MG TAB PO SCH (08:42)
[2018-11-04] MEDS: BUPROPION HCL PO SCH (08:42)
[2018-11-04] MEDS: ASPIRIN 81 MG CHEWABLE TABLET PO SCH (08:42)
[2018-11-04] MEDS: INSULIN GLARGINE 100 UNITS/ML SQ SCH ×2 (08:42→21:00)
[2018-11-04] MEDS: NIFEDIPINE XL 60 MG TABLET PO SCH (08:43)
[2018-11-04] MEDS: ALLOPURINOL 100 MG TAB PO SCH ×2 (08:43→21:00)
[2018-11-04] MEDS: METOLAZONE 5 MG TABLET PO SCH (08:43)
[2018-11-04] MEDS: GABAPENTIN 100 MG CAP PO SCH ×3 (08:43→21:00)
--- NOTE | 2018-11-04 08:56 | P.PN ---
Subjective Date of Service: 11/04/18 Chief Complaint: Fluid overload; CHF diastolic dysfunction; chronic kidney disease stage 5 Subjective: No new changes Review of Systems 10-point ROS is otherwise unremarkable Physical Examination - Vital Signs Temperature: 97.0 F Blood Pressure: 153/79 Pulse: 54 Respirations: 16 Pulse Ox (%): 97 - Physical Exam General: Alert, In no apparent distress HEENT: Atraumatic, PERRLA, EOMI Neck: Supple, JVD not distended Respiratory: Clear to auscultation bilaterally, Normal air movement Cardiovascular: Regular rate/rhythm, Normal S1 S2 Gastrointestinal: Normal bowel sounds, No tenderness Musculoskeletal: No tenderness Integumentary: No rashes Neurological: Normal speech, Normal tone, Normal affect Lymphatics: No axilla or inguinal lymphadenopathy - Studies Medications List Reviewed: Yes Assessment & Plan - Problems (Diagnosis) (1) Acute renal failure superimposed on stage 4 chronic kidney disease Current Visit: Yes Status: Acute Plan: Pt gfr is not improving. Possible will start dialysis soon. Consult to Dr. Bernstein for placement. However the patient will always be high risk for surgery. Her geriatric Perioperative risk is 33.6, Mk score is greater than 11 %. However is a necessary procedure. Have discussed this with Dr. Bernstein. Will discuss with the patient. plans for a portacath today Qualifiers: Acute renal failure type: unspecified Qualified Code(s): N17.9 - Acute kidney failure, unspecified; N18.4 - Chronic kidney disease, stage 4 (severe) (2) Diastolic CHF, acute Current Visit: Yes Status: Acute Plan: can reorder an echo. The last one she had was in Jan. (3) Diabetes mellitus with insulin therapy Onset Date: 01/07/14 Current Visit: No Status: Chronic Plan: restart insulin and sliding scale. (4) Hypertension Current Visit: No Status: Chronic Plan: Not well controlled. Will adjust her medications. Qualifiers: Hypertension type: essential hypertension Qualified Code(s): I10 - Essential (primary) hypertension Discharge Plan: Home Plan to discharge in: Greater than 2 days - Code Status/Comfort Care Code Status Assessed: No Physician Review: Patient Assessed, Agree with Above Assessment and Plan Critical Care: No Time Spent Managing Pts Care (In Minutes): 20
[2018-11-04] MEDS: BROMFENAC SODIUM OPTH SCH ×2 (09:00→21:00)
[2018-11-04] MEDS ORDERED: NA CHLORIDE 0.9% 500 ML ONE (10:04)
[2018-11-04] MEDS ORDERED: NS 0.9% VIAL 40 ML ONE (11:17)
[2018-11-04] MEDS ORDERED: BUPIVACA 0.5%/EPI 0.0005%/PF 30 ML VIAL ONE (11:17)
[2018-11-04] MEDS ORDERED: HEPARIN 5000 UNIT/ML 1 ML VIAL ONE (11:18)
[2018-11-04] MEDS ORDERED: FENTANYL CITR 100 MCG/2 ML ONE (11:58)
[2018-11-04] MEDS ORDERED: LIDOCAINE 1% MPF 5 ML VIAL ONE (11:58)
[2018-11-04] MEDS ORDERED: MIDAZOLAM HCL 2 MG/2 ML INJ ONE ×2 (11:58→12:18)
[2018-11-04] MEDS ORDERED: PROPOFOL 200 MG/20 ML VIAL IV ONE (11:58)
--- NOTE | 2018-11-04 13:20 | P.OP ---
Preoperative diagnosis: ESRD Postoperative diagnosis: ESRD Primary procedure: Attempted Placement of RIGHT Subclavian Dialysis Catheter Secondary procedure: Placement of Temporary LEFT femoral Hemodialysis Catheter Anesthesia: MAC + Local Estimated blood loss: 30cc Specimen: None Findings: Unable to pass subclavian catheter Complications: None Transferred to: Recovery Room Condition: Good
--- NOTE | 2018-11-04 13:49 | PN ---
Her condition seems to be stable. I am not concerned about her having any instability of her underly ing heart condition right now. I believe sometime today or maybe tomorrow, she is going to have surg carmela to place a hemodialysis catheter and she is certainly in stable enough condition to go through at. ENRICO/CELESTINE Voice ID: [id number] Report ID: [id number]
[2018-11-04] MEDS ORDERED: MEPERIDINE HCL 50 MG/ML AMP ONE (13:54)
--- NOTE | 2018-11-04 14:14 | RAD REPORT ---
EXAM DESCRIPTION: RAD - Chest Single View - 11/04/2018 1:54 pm CLINICAL HISTORY: Unsuccessful hemodialysis catheter placement procedure COMPARISON: CT chest November 01, portable chest November 01 TECHNIQUE: AP portable chest image was obtained 1349 hours . FINDINGS: No pneumothorax is present. Pleural effusion with atelectasis in the right lung base is pr esent not clearly different from the CT imaging. Cardiomegaly is present. No vascular engorgement. Tr achea is midline. No left-sided pleural effusion. Delete select IMPRESSION: No pneumothorax. Right base pleural effusion is not substantially different from the November 01 CT study. No findings to suspect hemothorax.
[2018-11-04] MEDS: HYDROCODONE/APAP 10/325 TAB PO PRN (16:34)
[2018-11-04] MEDS: ATORVASTATIN 40 MG TAB PO SCH (21:00)
[2018-11-04] MEDS: HYDROMORPHONE HCL 1 MG/ML INJ IV PRN (22:00)
[2018-11-04] MEDS ORDERED: NA CHLORIDE 0.9% 1,000 ML IV PRN (23:09)
--- NOTE | 2018-11-04 23:16 | PN ---
Date of Progress Note: 11/04/2018 History: The patient was admitted with patient undergo hemodialysis catheter placement to day. Physical Examination: VITAL SIGNS: Blood pressure 151/66, pulse of 62. CHEST: Crackles bilateral. ABDOMEN: Soft, nontender. EXTREMITIES: +2 edema. Laboratory Data: H and H 10.2 and 32.3. Sodium of 137, potassium 4.6, bicarb 25, BUN 64, creatinine 3. patch, carvedilol 25 b.i.d. clonidine, hydralazine, isosorbide, nifedipine. Patient had a urine output only of 1800. Assessment And Plan: 1.Acute kidney injury secondary to cardiorenal on advanced chronic kidney disease secondary to diabe liz and cardiorenal and we will do another session tomorrow. 2.Hypertension. Continue to utilize blood pressure for ultrafiltration and diuresis. 3.Congestive heart failure with CHF exacerbation as above. Continue to establish better volume cont rol. 4.Anemia of chronic kidney disease. Continue current treatment . NATI/MODL Voice ID: [id number] Report ID: [id number]
[2018-11-04] MEDS ORDERED: ALBUMIN HUMAN 25% 50 ML IV SCH (23:45)
--- NOTE | 2018-11-04 23:52 | OP ---
Date of Procedure: 11/04/2018 Surgeon: Beto Bernstein MD, Preoperative Diagnosis: End-stage renal disease. Postoperative Diagnosis: End-stage renal disease. Procedures Performed: 1.Attempted placement of right subclavian tunneled hemodialysis catheter using fluoroscopy and ultra sound guidance and microintroducer set, unsuccessfully. 2.Placement of temporary left femoral hemodialysis catheter using ultrasound guidance. Anesthesia: MAC plus local. Estimated Blood Loss: Less than 30 cc. Specimen: None. Findings: Unable to pass subclavian catheter. Complications: None. Disposition: Transferred to recovery room in good condition. Procedure In Detail: After informed consent was obtained, the patient was brought to the operating r oom, prepped and draped in the usual sterile fashion. After adequate anesthesia achieved, the patien t was placed in steep Trendelenburg position. Using ultrasound guidance, I interrogated the right in ternal jugular vein. The left external jugular vein had a catheter in place for IV access and as suc h this side was not an optimal location. Therefore, I focused on the right. After interrogating the area of the right jugular vein, I found the right jugular vein to be small and diminutive with enlar ged collateralization of veins in this area. She had significant distended external jugular veins ev ident on ultrasonography. The carotid appeared to be in the normal anatomic position; however, the i nternal jugular vein appeared to be small and diminutive and I had concern about dilation of this sma ll vessel. I therefore decided for the subclavian approach. After appropriately anesthetizing the s kin, I used the microintroducer set to cannulate the right subclavian vein on the first attempt. Miguel k red nonpulsatile blood was returned. The microwire was advanced. Fluoroscopy confirmed the positi on to be in the subclavian vein passing down into the SVC and into the heart. Ectopy was appreciated on the telemetry as well. I then made a small kelsy incision over the introduction site where the wi re was placed and placed the microintroducer sheath in place. I then removed the wire and placed the standard wire through the microintroducer sheath. Once again, fluoroscopy confirmed the position of the wire to be in good anatomic position going down to the confluence of the SVC. At this point, I created a tract approximately 4 cm inferior to this. I anesthetized the tract and the insertion site . I then made a kelsy incision and placed a tunneling device through the area. I then placed the cat heter up through the insertion site. Sequential dilatation was performed over the wire using Selding er technique and I placed the introducer sheath. Using fluoroscopy, I was unable to pass the introdu cer sheath down or towards the SVC after multiple attempts. The wire remained in place, but was unab le to allow the catheter to push. There was a kink in the wire as I could not pass the introducer sh vu into the normal anatomic position under fluoroscopic guidance. I tried pulling the catheter yves k, repositioning the wire, but I was unable to pass this. It seemed to go either superiorly towards the jugular system or across. It would not make the turn down after multiple attempts and as such I abandoned this and placed pressure on the neck, placed the patient in head-up position, held pressure for 5 minutes until all bleeding was stopped. I copiously irrigated the incisions and closed them w ith interrupted 2-0 nylon sutures and placed a sterile dressing on top. I then turned my attention t o the right groin area. I ultrasounded this area and was unable to find good access. I believe the patient had a femoral-popliteal on the right side per history, although the vein was not easily visua lized in this area as well. There were multiple collaterals visualized. I then turned my attention to the left femoral vein and found this on ultrasound guidance. I used the microintroducer set and p laced the initial stick into the left femoral vein on the first attempt without evidence of complicat ion. The wire was then advanced in this area and under sterile technique was able to be advanced eas laney. Sequential dilatation was performed after a kelsy incision was made and the catheter was introdu haven without evidence of complication. The wire out was called and the skin with the catheter was sec ured to the skin using the nylon sutures in the set which were 2-0. I then flushed all ports. They all pulled easily and flushed adequately and packed with super heparin-saline mixture and placed a st erile dressing over the top. The patient tolerated the procedure well without evidence of complicati ons, transferred to the PACU in good condition. All counts were correct at the end of the case. The patient will have a stat chest x-ray performed in recovery. TK/MODL Voice ID: [id number] Report ID: [id number]
[2018-11-05] MEDS: MELATONIN 5 MG TABLET PO PRN ×2 (01:09→22:02)
[2018-11-05] MEDS: ATORVASTATIN 40 MG TAB PO SCH (01:10)
[2018-11-05] MEDS: ALLOPURINOL 100 MG TAB PO SCH ×3 (01:10→22:02)
[2018-11-05] MEDS: HYDRALAZINE HCL 20 MG/ML VIAL IV PRN ×2 (01:10→12:08)
[2018-11-05] MEDS: FUROSEMIDE 100 MG in NA CHLORIDE 0.9% 90 ML IV SCH ×2 (02:02→10:00)
[2018-11-05] MEDS: HYDROMORPHONE HCL 1 MG/ML INJ IV PRN ×4 (03:40→22:22)
[2018-11-05 06:32] LABS: Albumin 2.7 g/dL (3.4-5.0); Phosphorus 3.6 mg/dL (2.5-4.9); Potassium 3.8 mmol/L (3.5-5.1)
[2018-11-05] MEDS: INSULIN -REGULAR HUMAN 50 UNIT/0.5 ML ML SQ SCH ×5 (07:30→21:00)
[2018-11-05] MEDS: ONDANSETRON 4 MG/2 ML VIAL IV PRN (08:47)
[2018-11-05] MEDS: CEFTRIAXONE/SWI 1gm 1 GM/10 ML SYR IV SCH (08:48)
[2018-11-05] MEDS: INSULIN GLARGINE 100 UNITS/ML SQ SCH ×2 (08:50→21:00)
[2018-11-05] MEDS: METOLAZONE 5 MG TABLET PO SCH (08:51)
[2018-11-05] MEDS: NICOTINE 14 MG/PAT TD SCH (08:51)
[2018-11-05] MEDS: ASPIRIN 81 MG CHEWABLE TABLET PO SCH (08:52)
[2018-11-05] MEDS: GABAPENTIN 100 MG CAP PO SCH ×3 (08:52→22:02)
[2018-11-05] MEDS: NIFEDIPINE XL 60 MG TABLET PO SCH (08:52)
[2018-11-05] MEDS: CARVEDILOL 25 MG TAB PO SCH ×2 (08:52→17:30)
[2018-11-05] MEDS: ISOSORBIDE MONO SR 30 MG TAB PO SCH (08:53)
[2018-11-05] MEDS: BUPROPION HCL PO SCH (08:58)
[2018-11-05] MEDS: BROMFENAC SODIUM OPTH SCH ×2 (08:59→21:00)
[2018-11-05] MEDS ORDERED: LACTULOSE 20 GM/30 ML UCUP PO PRN (11:10)
[2018-11-05] MEDS: HYDRALAZINE HCL 25 MG TABLET PO SCH ×2 (17:30→22:02)
[2018-11-05] MEDS: FUROSEMIDE 40 MG/4 ML VIAL IV SCH (17:30)
--- NOTE | 2018-11-05 17:53 | PN ---
Date of Progress Note: 11/05/2018 Subjective: Patient was admitted with anasarca, CHF exacerbation. Patient was started on Lasix drip and yesterday, dialysis catheter was placed. Unfortunately, we could not place subclavian or IJ. P atient had left femoral. Physical Examination: Vital Signs: Blood pressure 190/90, pulse of 72. Patient on dialysis. We managed to remove 2 L and has urine output of 3300. Patient weight has dropped to 216. Patient from admission has lost off 9 pounds. Chest: Crackles bilaterally. Heart: S1, S2. Systolic murmur. Abdomen: Soft, nontender. Extremities: +3 edema. Laboratory Data: H and H 10.2/32.3. Sodium 139, potassium 3.8, bicarb 29, BUN 53, creatinine 2.1. This is post dialysis. Calcium 8.3, phosphorus 3.6, albumin 2.7. Current Medications: Patient is on Lasix drip, ceftriaxone, aspirin. Heparin, carvedilol 25 b.i.d., isosorbide, nifedipine. Tylenol, gabapentin, Zaroxolyn, allopurinol. Assessment And Plan: 1.Acute kidney injury, on advanced chronic kidney disease secondary to cardiorenal, still significan tly overloaded. I going to go ahead and discontinue Lasix drip and place her on Lasix 40 t.i.d. and we will continue daily dialysis. We will plan to transfer the patient to higher level of care for Ra diology to be [facility] 2.Congestive heart failure exacerbation. Continue Lasix. Switching it to IV bolus and we can incre ase the goal on the ultrafiltration on the dialysis. 3.Hypertension, not controlled. Continue diuresis. We will add hydralazine scheduled dose. 4.Anemia of chronic kidney disease, stable. We will continue to monitor. 5.Diabetes as by primary. MA/MODL Voice ID: [id number] Report ID: [id number]
[2018-11-05] MEDS: DOCUSATE NA 100 MG CAP PO SCH (21:00)
[2018-11-05] MEDS ORDERED: HYDROMORPHONE HCL 1 MG/ML INJ IV ONE (22:20)
[2018-11-06] MEDS: FUROSEMIDE 40 MG/4 ML VIAL IV SCH ×3 (01:45→17:37)
[2018-11-06 03:37] LABS: HBsAG Nonreactive (Nonreactive)
[2018-11-06] MEDS: HYDROMORPHONE HCL 1 MG/ML INJ IV PRN ×2 (04:18→12:32)
[2018-11-06 06:10] LABS: Albumin 2.6 g/dL (3.4-5.0); Phosphorus 3.3 mg/dL (2.5-4.9)
[2018-11-06] MEDS: INSULIN -REGULAR HUMAN 50 UNIT/0.5 ML ML SQ SCH ×4 (07:30→21:00)
[2018-11-06] MEDS: CARVEDILOL 25 MG TAB PO SCH (08:00)
[2018-11-06] MEDS: NICOTINE 14 MG/PAT TD SCH (08:31)
[2018-11-06] MEDS: CEFTRIAXONE/SWI 1gm 1 GM/10 ML SYR IV SCH (08:31)
[2018-11-06] MEDS: ONDANSETRON 4 MG/2 ML VIAL IV PRN ×2 (08:31→21:38)
[2018-11-06] MEDS: ASPIRIN 81 MG CHEWABLE TABLET PO SCH (08:37)
[2018-11-06] MEDS: ALLOPURINOL 100 MG TAB PO SCH ×2 (08:37→21:22)
[2018-11-06] MEDS: ISOSORBIDE MONO SR 30 MG TAB PO SCH (08:37)
[2018-11-06] MEDS: HYDRALAZINE HCL 25 MG TABLET PO SCH ×3 (08:38→21:23)
[2018-11-06] MEDS: GABAPENTIN 100 MG CAP PO SCH ×3 (08:38→21:21)
[2018-11-06] MEDS: BROMFENAC SODIUM OPTH SCH ×2 (09:00→21:00)
[2018-11-06] MEDS: BUPROPION HCL PO SCH (09:00)
[2018-11-06] MEDS: INSULIN GLARGINE 100 UNITS/ML SQ SCH ×2 (09:00→21:26)
[2018-11-06] MEDS: DOCUSATE NA 100 MG CAP PO SCH ×2 (09:00→21:00)
[2018-11-06] MEDS: METOLAZONE 5 MG TABLET PO SCH (09:43)
[2018-11-06] MEDS: NIFEDIPINE XL 60 MG TABLET PO SCH (09:43)
--- NOTE | 2018-11-06 12:47 | P.DS ---
Admission Date: 11/01/18 Discharge Date: 11/06/18 Disposition: INTERMEDIATE ACUTE CARE FACILITY Discharge Condition: FAIR Reason for Admission: Fluid overload; CHF diastolic dysfunction; chronic kidney disease stage 5 - Problems (1) Acute renal failure superimposed on stage 4 chronic kidney disease Current Visit: Yes Status: Acute Qualifiers: Acute renal failure type: unspecified Qualified Code(s): N17.9 - Acute kidney failure, unspecified; N18.4 - Chronic kidney disease, stage 4 (severe) (2) Diastolic CHF, acute Current Visit: Yes Status: Acute (3) Diabetes mellitus with insulin therapy Onset Date: 01/07/14 Current Visit: No Status: Chronic (4) Hypertension Current Visit: No Status: Chronic Qualifiers: Hypertension type: essential hypertension Qualified Code(s): I10 - Essential (primary) hypertension Brief History of Present Illness: Patient was admitted by the hospitalist service for acute renal failure and fluid overload. Hospital Course: was seen by Dr. Theodore started on diuretics. However her kidney function did not improve. Dialysis was to be started. Dr. Bernstein was consulted. Unfortunately he was not able to get a permacath She was dialysised through a temporary port. The patient will be transfered to a LTAC. She can go to the [facility] today. She can get a permanent port with Interventional radiology. She also needs daily dialysis per Dr. Messer. Will have her follow up with me as an outpatient. Vital Signs/Physical Exam: Temp Pulse Resp BP Pulse Ox 97.3 F 57 16 154/67 H 91 11/06/18 08:00 11/06/18 09:43 11/06/18 12:32 11/06/18 09:43 11/06/18 12:32 General: Alert, In no apparent distress HEENT: Atraumatic, PERRLA, EOMI Neck: Supple, JVD not distended Respiratory: Clear to auscultation bilaterally, Normal air movement Cardiovascular: Regular rate/rhythm, Normal S1 S2 Gastrointestinal: Normal bowel sounds, No tenderness Musculoskeletal: No tenderness Integumentary: No rashes Neurological: Normal speech, Normal tone, Normal affect Lymphatics: No axilla or inguinal lymphadenopathy Laboratory Data at Discharge: WBC 7.5 K/uL (4.3-10.9) 11/03/18 03:58 Hgb 10.2 g/dL (12.0-15.0) L 11/03/18 03:58 Hct 32.3 % (36.0-45.0) L 11/03/18 03:58 Plt Count 190 K/uL (152-406) 11/03/18 03:58 PT 13.2 SECONDS (9.5-12.5) H 11/02/18 03:47 INR 1.12 11/02/18 03:47 APTT 32.8 SECONDS (24.3-36.9) 11/02/18 03:47 Sodium 140 mmol/L (136-145) 11/06/18 05:15 Potassium 4.0 mmol/L (3.5-5.1) 11/06/18 05:15 BUN 47 mg/dL (7-18) H 11/06/18 05:15 Creatinine 1.89 mg/dL (0.55-1.3) H 11/06/18 05:15 Glucose 105 mg/dL (74-106) 11/06/18 05:15 Phosphorus 3.3 mg/dL (2.5-4.9) 11/06/18 05:15 Magnesium 1.9 mg/dL (1.8-2.4) 11/01/18 19:40 Total Bilirubin 0.4 mg/dL (0.2-1.0) 11/02/18 03:47 AST 15 U/L (15-37) 11/02/18 03:47 ALT 14 U/L (12-78) 11/02/18 03:47 Alkaline Phosphatase 162 U/L (45-117) H 11/02/18 03:47 Troponin I 0.02 ng/mL (0.0-0.045) 11/02/18 22:13 Lipase 115 U/L (73-393) 11/01/18 19:40 Home Medications: Allopurinol [Zyloprim*] 1 tab PO BID 11/02/18 Aspirin Chewable [Aspirin Chewable*] 1 tab PO DAILY 11/02/18 Atorvastatin Calcium [Lipitor] 1 tab PO DAILY 11/02/18 Bromfenac Sodium 1 gtt OPTH BID 11/02/18 Bupropion HCl [Wellbutrin] 1 tab PO DAILY 11/02/18 Carvedilol [Coreg*] 1 tab PO BID 11/02/18 Ciprofloxacin HCl [Ciprofloxacin 0.3% Ophth Irene] 1 gtt OPTH BID 11/02/18 Difluprednate [Durezol 0.05%] 1 gtt OPTH QID 11/02/18 Furosemide [Lasix*] 1 tab PO BID 11/02/18 Gabapentin [Neurontin*] 1 tab PO TID 11/02/18 Insulin Detemir [Levemir] See Protocol SQ BID 11/02/18 Isosorbide Mononitrate [Isosorbide Mononitrate ER] 1 tab PO DAILY 11/02/18 Melatonin 1 tab PO BEDTIME PRN PRN 11/02/18 Nicotine [Nicoderm*] 1 patch TD DAILY 11/02/18 Nifedipine [Nifedipine ER] 1 tab PO DAILY 11/02/18 Diet: Renal Activity: Ad shira Time spent managing pt's care (in minutes): 30
[2018-11-06] MEDS: ACETAMINOPHEN 325 MG TABLET PO SCH ×2 (14:00→21:00)
[2018-11-06 14:46] LABS: HIV AG/AB 4TH GEN Non-reactive (Non-reactive)
[2018-11-06] MEDS: CARVEDILOL 12.5 MG TAB PO SCH (17:37)
[2018-11-06] MEDS: ATORVASTATIN 40 MG TAB PO SCH (21:23)
[2018-11-06] MEDS: HYDROCODONE/APAP 10/325 TAB PO PRN (21:37)
[2018-11-07] MEDS ORDERED: HYDROMORPHONE HCL 0.5 MG/0.5 ML INJ IV ONE (00:27)
--- NOTE | 2018-11-07 01:18 | PN ---
Date of Progress Note: 11/06/2018 History: Patient was admitted because of anasarca, shortness of breath. Patient has CHF exacerbation with acute on chronic kidney injuries. Patient was started on Lasix drip and subsequently dialysis was started for fluid overload. Review of Systems: Denies fever or chills. Physical Examination: Lungs: Few crackles at bases. Heart: S1, S2. ABDOMEN: Soft, benign. Extremities: Edema in both legs. Impression And Plan: 1. Patient has advanced chronic kidney disease, presented to the hospital with congestive heart failure exacerbation and anasarca. Patient will continue p.o. fluid restriction. Lasix dose will be adjusted. Patient may need to start dialysis for end-stage renal disease. Plan is to evaluate urine output for next 24 hours. Monitor electrolytes. Continue diuretics as started. 2. Hypertension. Blood pressure control. 3. Congestive heart failure, hypertensive heart and kidney disease. Avoid nephrotoxic medication. 4. Edema, fluid overload. Continue low-sodium diet and p.o. fluid restriction. I spent total 36 min including 25 min to coordinate care plan. GIOVANNA Voice ID: [id number] Report ID: [id number] AZUCENA
[2018-11-07] MEDS: FUROSEMIDE 40 MG/4 ML VIAL IV SCH ×3 (02:07→16:19)
[2018-11-07 06:30] LABS: Albumin 2.6 g/dL (3.4-5.0); Phosphorus 2.9 mg/dL (2.5-4.9); Potassium 4.2 mmol/L (3.5-5.1)
[2018-11-07] MEDS: INSULIN -REGULAR HUMAN 50 UNIT/0.5 ML ML SQ SCH ×4 (07:30→21:00)
[2018-11-07] MEDS: CARVEDILOL 12.5 MG TAB PO SCH ×2 (08:00→16:18)
[2018-11-07] MEDS: NICOTINE 14 MG/PAT TD SCH (08:43)
[2018-11-07] MEDS: GABAPENTIN 100 MG CAP PO SCH ×3 (08:44→21:42)
[2018-11-07] MEDS: ISOSORBIDE MONO SR 30 MG TAB PO SCH (08:44)
[2018-11-07] MEDS: DOCUSATE NA 100 MG CAP PO SCH ×2 (08:44→21:00)
[2018-11-07] MEDS: NIFEDIPINE XL 60 MG TABLET PO SCH (08:44)
[2018-11-07] MEDS: ASPIRIN 81 MG CHEWABLE TABLET PO SCH (08:44)
[2018-11-07] MEDS: HYDRALAZINE HCL 25 MG TABLET PO SCH ×3 (08:45→21:42)
[2018-11-07] MEDS: ACETAMINOPHEN 325 MG TABLET PO SCH ×3 (08:45→21:00)
[2018-11-07] MEDS: METOLAZONE 5 MG TABLET PO SCH (08:45)
[2018-11-07] MEDS: ALLOPURINOL 100 MG TAB PO SCH ×2 (08:45→21:41)
[2018-11-07] MEDS: INSULIN GLARGINE 100 UNITS/ML SQ SCH ×2 (08:46→21:42)
[2018-11-07] MEDS: CEFTRIAXONE/SWI 1gm 1 GM/10 ML SYR IV SCH (08:46)
[2018-11-07] MEDS: BUPROPION HCL PO SCH (08:47)
[2018-11-07] MEDS: BROMFENAC SODIUM OPTH SCH ×2 (08:47→21:00)
--- NOTE | 2018-11-07 10:29 | P.PN ---
Subjective Date of Service: 11/07/18 Chief Complaint: Fluid overload; CHF diastolic dysfunction; chronic kidney disease stage 5 Subjective: No new changes Review of Systems pain every night at 10pm Physical Examination - Vital Signs Temperature: 97.5 F Blood Pressure: 139/60 Pulse: 58 Respirations: 14 Pulse Ox (%): 93 - Physical Exam General: Alert, In no apparent distress HEENT: Atraumatic, PERRLA, EOMI Neck: Supple, JVD not distended Respiratory: Clear to auscultation bilaterally, Normal air movement Cardiovascular: Regular rate/rhythm, Normal S1 S2 Gastrointestinal: Normal bowel sounds, No tenderness Musculoskeletal: No tenderness Integumentary: No rashes Neurological: Normal speech, Normal tone, Normal affect Lymphatics: No axilla or inguinal lymphadenopathy - Studies Microbiology Data (last 24 hrs): 11/01/18 21:50 Blood - Blood Aerobic Blood Culture - Final No growth in 5 days. 11/01/18 21:50 Blood - Blood Anaerobic Blood Culture - Final No growth in 5 days. 11/01/18 19:40 Blood - Blood Aerobic Blood Culture - Final No growth in 5 days. 11/01/18 19:40 Blood - Blood Anaerobic Blood Culture - Final No growth in 5 days. Medications List Reviewed: Yes Assessment & Plan - Problems (Diagnosis) (1) Acute renal failure superimposed on stage 4 chronic kidney disease Current Visit: Yes Status: Acute Plan: Pt gfr is not improving. Possible will start dialysis soon. Consult to Dr. Bernstein for placement. However the patient will always be high risk for surgery. Her geriatric Perioperative risk is 33.6, Mk score is greater than 11 %. However is a necessary procedure. Have discussed this with Dr. Bernstein. Will discuss with the patient. plans for a portacath today Qualifiers: Acute renal failure type: unspecified Qualified Code(s): N17.9 - Acute kidney failure, unspecified; N18.4 - Chronic kidney disease, stage 4 (severe) (2) Diastolic CHF, acute Current Visit: Yes Status: Acute Plan: can reorder an echo. The last one she had was in Jan. (3) Diabetes mellitus with insulin therapy Onset Date: 01/07/14 Current Visit: No Status: Chronic Plan: restart insulin and sliding scale. (4) Hypertension Current Visit: No Status: Chronic Plan: Not well controlled. Will adjust her medications. Qualifiers: Hypertension type: essential hypertension Qualified Code(s): I10 - Essential (primary) hypertension (5) Pain Current Visit: Yes Status: Acute Plan: will need to manage better. Cannot just continue dilaudid till discharge. Will start ambulating the patient. Use acetaminophen and oral meds. Have discussed it with her. She is somewhat motivated during the day. As stated above she usually asks in the evening time. We may consider giving some mild sedation. Discharge Plan: LTAC Plan to discharge in: Greater than 2 days - Code Status/Comfort Care Code Status Assessed: No Physician Review: Patient Assessed, Agree with Above Assessment and Plan Critical Care: No Time Spent Managing Pts Care (In Minutes): 25
[2018-11-07] MEDS: HYDRALAZINE HCL 20 MG/ML VIAL IV PRN (16:13)
[2018-11-07 20:50] LABS: Beta Globulin 24 HR Urine 8 %; Gamma Globulin, 24hr Urine 18 %; Interpretation: REPORT; Urine Alpha-2-Globulins, 24 Hr 5 %; Urine PEP Abn Protein Band1 REPORT; Urine Protein/Creat Ratio 24Hr 2222 mg/g creat (<115); Urine Total Volume 24 Hours 1750 mL
[2018-11-07] MEDS: ATORVASTATIN 40 MG TAB PO SCH (21:41)
[2018-11-08] MEDS: ZOLPIDEM TARTRATE 5 MG TABLET PO PRN ×2 (00:02→21:52)
--- NOTE | 2018-11-08 02:02 | PN ---
Date of Progress Note: 11/07/2018 Chief Complaint: Acute on chronic kidney injury, anasarca. Patient had dialysis done during this admission to treat severe volume overload. Patient developed anasarca and was started on IV Lasix. Review of Systems: The patient is feeling better. Legs edema somewhat improved. Physical Examination: Lungs: Few crackles at bases. Heart: S1, S2. Abdomen: Soft benign. Extremities: Edema in both legs. Laboratory Data: Hemoglobin 10.2, WBC 7.5, platelet count is 190,000. Chemistries show sodium 143, potassium 4.2, chloride 108, CO2 of 29, BUN 38, creatinine 2.21, glucose 137. Calcium 8.0, albumin 2.6. Urine output 800 over 12 hours. Impression And Plan: 1. Acute on chronic kidney injury with cardiorenal syndrome. Decompensated congestive heart failure, severe fluid overload, anasarca. The patient required dialysis. Currently she is asymptomatic and leg edema has improved. Continue IV Lasix. The patient may require dialysis for end-stage renal disease if conservative treatment is optimal. 2. Monitor renal function daily and plan replacement of the catheter accordingly. 3. The patient has femoral dialysis catheter. Although, for end-stage renal disease she will require IJ catheter placement, which was not successful during this admission. 4. Congestive heart failure, hypertension controlled. Patient has hypertensive heart and kidney disease. Avoid nephrotoxic medication. 5. Edema: The patient is on Lasix. Monitor daily weight and fluid balance. Continue low-sodium diet. I spent total 36 min including 25 min to coordinate care plan. JONNY/CELESTINE Voice ID: [id number] Report ID: [id number] AZUCENA
[2018-11-08] MEDS: FUROSEMIDE 40 MG/4 ML VIAL IV SCH ×3 (02:42→16:23)
[2018-11-08 06:37] LABS: Albumin 2.6 g/dL (3.4-5.0); Phosphorus 2.9 mg/dL (2.5-4.9); Potassium 3.9 mmol/L (3.5-5.1)
[2018-11-08] MEDS: INSULIN -REGULAR HUMAN 50 UNIT/0.5 ML ML SQ SCH ×5 (07:30→21:00)
[2018-11-08] MEDS: NIFEDIPINE XL 60 MG TABLET PO SCH (08:26)
[2018-11-08] MEDS: HYDRALAZINE HCL 25 MG TABLET PO SCH ×3 (08:26→20:37)
[2018-11-08] MEDS: NICOTINE 14 MG/PAT TD SCH (08:26)
[2018-11-08] MEDS: GABAPENTIN 100 MG CAP PO SCH ×3 (08:26→20:37)
[2018-11-08] MEDS: DOCUSATE NA 100 MG CAP PO SCH ×2 (08:27→20:37)
[2018-11-08] MEDS: ALLOPURINOL 100 MG TAB PO SCH ×2 (08:27→20:37)
[2018-11-08] MEDS: ISOSORBIDE MONO SR 30 MG TAB PO SCH (08:27)
[2018-11-08] MEDS: ASPIRIN 81 MG CHEWABLE TABLET PO SCH (08:27)
[2018-11-08] MEDS: METOLAZONE 5 MG TABLET PO SCH (08:27)
[2018-11-08] MEDS: BROMFENAC SODIUM OPTH SCH ×2 (08:28→21:00)
[2018-11-08] MEDS: BUPROPION HCL PO SCH (08:29)
[2018-11-08] MEDS: CARVEDILOL 12.5 MG TAB PO SCH ×2 (08:29→16:23)
[2018-11-08] MEDS: INSULIN GLARGINE 100 UNITS/ML SQ SCH ×2 (08:29→20:37)
[2018-11-08] MEDS: ACETAMINOPHEN 325 MG TABLET PO SCH ×3 (09:00→20:38)
--- NOTE | 2018-11-08 12:05 | P.PN ---
Subjective Date of Service: 11/08/18 Chief Complaint: Fluid overload; CHF diastolic dysfunction; chronic kidney disease stage 5 Subjective: No new changes, Tolerating diet, Ambulating, Improving Review of Systems 10-point ROS is otherwise unremarkable Physical Examination - Vital Signs Temperature: 98.2 F Blood Pressure: 176/73 Pulse: 66 Respirations: 16 Pulse Ox (%): 94 - Physical Exam General: Alert, In no apparent distress HEENT: Atraumatic, PERRLA, EOMI Neck: Supple, JVD not distended Respiratory: Clear to auscultation bilaterally, Normal air movement Cardiovascular: Regular rate/rhythm, Normal S1 S2 Gastrointestinal: Normal bowel sounds, No tenderness Musculoskeletal: No tenderness Integumentary: No rashes Neurological: Normal speech, Normal tone, Normal affect Lymphatics: No axilla or inguinal lymphadenopathy - Studies Medications List Reviewed: Yes Assessment & Plan - Problems (Diagnosis) (1) Acute renal failure superimposed on stage 4 chronic kidney disease Current Visit: Yes Status: Acute Plan: Pt gfr is not improving. Possible will start dialysis soon. Consult to Dr. Bernstein for placement. However the patient will always be high risk for surgery. Her geriatric Perioperative risk is 33.6, Mk score is greater than 11 %. However is a necessary procedure. Have discussed this with Dr. Bernstein. Will discuss with the patient. plans for a portacath today Qualifiers: Acute renal failure type: unspecified Qualified Code(s): N17.9 - Acute kidney failure, unspecified; N18.4 - Chronic kidney disease, stage 4 (severe) (2) Diastolic CHF, acute Current Visit: Yes Status: Acute Plan: can reorder an echo. The last one she had was in Jan. (3) Diabetes mellitus with insulin therapy Onset Date: 01/07/14 Current Visit: No Status: Chronic Plan: restart insulin and sliding scale. (4) Hypertension Current Visit: No Status: Chronic Plan: Not well controlled. Will adjust her medications. Qualifiers: Hypertension type: essential hypertension Qualified Code(s): I10 - Essential (primary) hypertension (5) Pain Current Visit: Yes Status: Acute Plan: will need to manage better. Cannot just continue dilaudid till discharge. Will start ambulating the patient. Use acetaminophen and oral meds. Have discussed it with her. She is somewhat motivated during the day. As stated above she usually asks in the evening time. We may consider giving some mild sedation. Discharge Plan: Home Plan to discharge in: 48 Hours - Code Status/Comfort Care Code Status Assessed: No Physician Review: Patient Assessed, Agree with Above Assessment and Plan Critical Care: No Time Spent Managing Pts Care (In Minutes): 25
[2018-11-08] MEDS: HYDRALAZINE HCL 20 MG/ML VIAL IV PRN (16:24)
[2018-11-08] MEDS: ATORVASTATIN 40 MG TAB PO SCH (20:37)
[2018-11-09] MEDS: FUROSEMIDE 40 MG/4 ML VIAL IV SCH ×3 (01:00→16:36)
--- NOTE | 2018-11-09 04:03 | PN ---
Date of Progress Note: 11/08/2018 Chief Complaint: Chronic kidney disease, accelerated by cardiorenal syndrome with anasarca, and volu me overload. History Of Present Illness: The patient required dialysis to control volemia and anasarca. Primaril y, she was started on Lasix drip. Subsequently, dialysis was started to optimize the volemia and mary at fluid overload. The patient currently is on IV Lasix. Greene catheter was removed today and the p atient has good urine output. Review of Systems: Denies fever, chills. Physical Examination: Lungs: Few crackles at bases. Heart: S1, S2. Abdomen: Soft, benign. Extremities: Edema in both legs. Laboratory Data: Hemoglobin 10.2, WBC 7.5, platelet count is 190,000. Chemistries showed sodium 139 , potassium 3.9, chloride 106, CO2 of 28, BUN 43, creatinine 2.33, glucose 113, calcium 8.1. Impression And Plan: 1.Acute on chronic kidney injury. Renal function somewhat improved. Renal function has been platea uing over last 24 hours. The patient has been off dialysis for last several days. Plan is to contin ue IV diuretics. The patient is responding adequately to current dose of Lasix. 2.Chronic kidney disease stage 4. Monitor function and fluid balance. Adjust blood pressure medica tion according to blood pressure. 3.Blood pressure is improving. 4.Congestive heart failure with diastolic dysfunction, fluid overload. Continue diuretic and low-so dium diet. JONNY/MODL Voice ID: [id number] Report ID: [id number]
[2018-11-09 05:17] LABS: Albumin 2.8 g/dL (3.4-5.0); Potassium 4.1 mmol/L (3.5-5.1)
[2018-11-09] MEDS: INSULIN -REGULAR HUMAN 50 UNIT/0.5 ML ML SQ SCH ×5 (07:30→21:58)
[2018-11-09] MEDS: ASPIRIN 81 MG CHEWABLE TABLET PO SCH (08:54)
[2018-11-09] MEDS: HYDRALAZINE HCL 25 MG TABLET PO SCH ×3 (08:54→21:57)
[2018-11-09] MEDS: METOLAZONE 5 MG TABLET PO SCH (08:54)
[2018-11-09] MEDS: CARVEDILOL 12.5 MG TAB PO SCH ×2 (08:54→16:37)
[2018-11-09] MEDS: DOCUSATE NA 100 MG CAP PO SCH ×2 (08:55→21:57)
[2018-11-09] MEDS: INSULIN GLARGINE 100 UNITS/ML SQ SCH ×2 (08:56→21:58)
[2018-11-09] MEDS: ALLOPURINOL 100 MG TAB PO SCH ×2 (08:56→21:58)
[2018-11-09] MEDS: NIFEDIPINE XL 60 MG TABLET PO SCH (08:56)
[2018-11-09] MEDS: ISOSORBIDE MONO SR 30 MG TAB PO SCH (08:56)
[2018-11-09] MEDS: GABAPENTIN 100 MG CAP PO SCH ×3 (08:56→21:57)
[2018-11-09] MEDS: NICOTINE 14 MG/PAT TD SCH (08:57)
[2018-11-09] MEDS: BUPROPION HCL PO SCH (09:00)
[2018-11-09] MEDS: BROMFENAC SODIUM OPTH SCH ×2 (09:00→21:00)
[2018-11-09] MEDS: ACETAMINOPHEN 325 MG TABLET PO SCH ×3 (09:00→22:00)
--- NOTE | 2018-11-09 12:42 | P.PN ---
Subjective Date of Service: 11/09/18 Chief Complaint: Fluid overload; CHF diastolic dysfunction; chronic kidney disease stage 5 Subjective: No new changes Review of Systems 10-point ROS is otherwise unremarkable Physical Examination - Vital Signs Temperature: 98.2 F Blood Pressure: 172/78 Pulse: 74 Respirations: 14 Pulse Ox (%): 97 - Physical Exam General: Alert, In no apparent distress HEENT: Atraumatic, PERRLA, EOMI Neck: Supple, JVD not distended Respiratory: Clear to auscultation bilaterally, Normal air movement Cardiovascular: Regular rate/rhythm, Normal S1 S2 Gastrointestinal: Normal bowel sounds, No tenderness Musculoskeletal: No tenderness Integumentary: No rashes Neurological: Normal speech, Normal tone, Normal affect Lymphatics: No axilla or inguinal lymphadenopathy - Studies Medications List Reviewed: Yes Assessment & Plan - Problems (Diagnosis) (1) Acute renal failure superimposed on stage 4 chronic kidney disease Current Visit: Yes Status: Acute Plan: Pt gfr is not improving. Possible will start dialysis soon. Consult to Dr. Bernstein for placement. However the patient will always be high risk for surgery. Her geriatric Perioperative risk is 33.6, Mk score is greater than 11 %. However is a necessary procedure. Have discussed this with Dr. Bernstein. Will discuss with the patient. plans for a portacath today Qualifiers: Acute renal failure type: unspecified Qualified Code(s): N17.9 - Acute kidney failure, unspecified; N18.4 - Chronic kidney disease, stage 4 (severe) (2) Diastolic CHF, acute Current Visit: Yes Status: Acute Plan: can reorder an echo. The last one she had was in Jan. (3) Diabetes mellitus with insulin therapy Onset Date: 01/07/14 Current Visit: No Status: Chronic Plan: restart insulin and sliding scale. (4) Hypertension Current Visit: No Status: Chronic Plan: Not well controlled. Will adjust her medications. Qualifiers: Hypertension type: essential hypertension Qualified Code(s): I10 - Essential (primary) hypertension (5) Pain Current Visit: Yes Status: Acute Plan: will need to manage better. Cannot just continue dilaudid till discharge. Will start ambulating the patient. Use acetaminophen and oral meds. Have discussed it with her. She is somewhat motivated during the day. As stated above she usually asks in the evening time. We may consider giving some mild sedation. Discharge Plan: Home Plan to discharge in: 48 Hours - Code Status/Comfort Care Code Status Assessed: No Physician Review: Patient Assessed, Agree with Above Assessment and Plan Critical Care: No Time Spent Managing Pts Care (In Minutes): 20
--- NOTE | 2018-11-09 15:43 | P.DS ---
Admission Date: 11/01/18 Discharge Date: 11/09/18 Disposition: ROUTINE DISCHARGE Discharge Condition: FAIR Reason for Admission: Fluid overload; CHF diastolic dysfunction; chronic kidney disease stage 5 - Problems (1) Acute renal failure superimposed on stage 4 chronic kidney disease Current Visit: Yes Status: Acute Qualifiers: Acute renal failure type: unspecified Qualified Code(s): N17.9 - Acute kidney failure, unspecified; N18.4 - Chronic kidney disease, stage 4 (severe) (2) Diastolic CHF, acute Current Visit: Yes Status: Acute (3) Diabetes mellitus with insulin therapy Onset Date: 01/07/14 Current Visit: No Status: Chronic (4) Hypertension Current Visit: No Status: Chronic Qualifiers: Hypertension type: essential hypertension Qualified Code(s): I10 - Essential (primary) hypertension (5) Pain Current Visit: Yes Status: Acute Brief History of Present Illness: Patient was admitted by the hospitalist service for acute renal failure and fluid overload. Hospital Course: was seen by Dr. Theodore started on diuretics. However her kidney function did not improve. Dialysis was to be started. Dr. Bernstein was consulted. Unfortunately he was not able to get a permacath She was dialysised through a temporary port. Was kept over the weekend and treated by Dr. Theodore. She was deemed safe to go home without dialysis. Will have her follow up with Dr. Theodore and myself. Vital Signs/Physical Exam: Temp Pulse Resp BP Pulse Ox 98.2 F 74 14 164/78 H 97 11/09/18 12:42 11/09/18 12:42 11/09/18 12:42 11/09/18 13:00 11/09/18 12:42 General: Alert, In no apparent distress HEENT: Atraumatic, PERRLA, EOMI Neck: Supple, JVD not distended Respiratory: Clear to auscultation bilaterally, Normal air movement Cardiovascular: Regular rate/rhythm, Normal S1 S2 Gastrointestinal: Normal bowel sounds, No tenderness Musculoskeletal: No tenderness Integumentary: No rashes Neurological: Normal speech, Normal tone, Normal affect Lymphatics: No axilla or inguinal lymphadenopathy Laboratory Data at Discharge: WBC 7.5 K/uL (4.3-10.9) 11/03/18 03:58 Hgb 10.2 g/dL (12.0-15.0) L 11/03/18 03:58 Hct 32.3 % (36.0-45.0) L 11/03/18 03:58 Plt Count 190 K/uL (152-406) 11/03/18 03:58 PT 13.2 SECONDS (9.5-12.5) H 11/02/18 03:47 INR 1.12 11/02/18 03:47 APTT 32.8 SECONDS (24.3-36.9) 11/02/18 03:47 Sodium 139 mmol/L (136-145) 11/09/18 04:39 Potassium 4.1 mmol/L (3.5-5.1) 11/09/18 04:39 BUN 47 mg/dL (7-18) H 11/09/18 04:39 Creatinine 2.33 mg/dL (0.55-1.3) H 11/09/18 04:39 Glucose 130 mg/dL (74-106) H 11/09/18 04:39 Phosphorus 3.0 mg/dL (2.5-4.9) 11/09/18 04:39 Magnesium 1.9 mg/dL (1.8-2.4) 11/01/18 19:40 Total Bilirubin 0.4 mg/dL (0.2-1.0) 11/02/18 03:47 AST 15 U/L (15-37) 11/02/18 03:47 ALT 14 U/L (12-78) 11/02/18 03:47 Alkaline Phosphatase 162 U/L (45-117) H 11/02/18 03:47 Troponin I 0.02 ng/mL (0.0-0.045) 11/02/18 22:13 Lipase 115 U/L (73-393) 11/01/18 19:40 Home Medications: Allopurinol [Zyloprim*] 1 tab PO BID 11/02/18 Aspirin Chewable [Aspirin Chewable*] 1 tab PO DAILY 11/02/18 Atorvastatin Calcium [Lipitor] 1 tab PO DAILY 11/02/18 Bromfenac Sodium 1 gtt OPTH BID 11/02/18 Bupropion HCl [Wellbutrin] 1 tab PO DAILY 11/02/18 Carvedilol [Coreg*] 1 tab PO BID 11/02/18 Ciprofloxacin HCl [Ciprofloxacin 0.3% Ophth Irene] 1 gtt OPTH BID 11/02/18 Difluprednate [Durezol 0.05%] 1 gtt OPTH QID 11/02/18 Furosemide [Lasix*] 1 tab PO BID 11/02/18 Gabapentin [Neurontin*] 1 tab PO TID 11/02/18 Insulin Detemir [Levemir] See Protocol SQ BID 11/02/18 Isosorbide Mononitrate [Isosorbide Mononitrate ER] 1 tab PO DAILY 11/02/18 Melatonin 1 tab PO BEDTIME PRN PRN 11/02/18 Nicotine [Nicoderm*] 1 patch TD DAILY 11/02/18 Nifedipine [Nifedipine ER] 1 tab PO DAILY 11/02/18 Diet: Renal Activity: Ad shira Followup: Sharri Fernando MD [ACTIVE - CAN ADMIT] - Franki Mark MD [ACTIVE - CAN ADMIT] - 1 Week Time spent managing pt's care (in minutes): 35
[2018-11-09] MEDS: ATORVASTATIN 40 MG TAB PO SCH (21:57)
[2018-11-10] MEDS: FUROSEMIDE 40 MG/4 ML VIAL IV SCH ×3 (01:17→17:28)
--- NOTE | 2018-11-10 03:30 | PN ---
Date of Progress Note: 11/09/2018 Chief Complaint: Acute on chronic kidney injury associated with fluid overload, anasarca, and conges tive heart failure with diastolic dysfunction. History Of Present Illness: Primarily, patient was started on IV Lasix drip; although due to subopti mal response to IV Lasix drip, the patient was started on dialysis to control severe fluid overload w ith anasarca. Renal function is plateauing and patient has been off dialysis. She has adequate urin e output with IV Lasix. Currently, she is on Lasix IV twice a day. Review of Systems: Denies fever or chills. Physical Examination: Lungs: Clear to auscultation bilaterally. Heart: S1, S2. Abdomen: Soft. Benign. Extremities: Slight edema. Legs edema has improved. Laboratory Data: Blood work: Hemoglobin 10.2, WBC 7.5, platelet count is 190,000. Chemistries show ed sodium 139, potassium 4.1, chloride 106, CO2 of 29, BUN 47, creatinine 2.33, glucose 109. Impression And Plan: 1.Chronic kidney disease stage 4 accelerated by cardiorenal syndrome. Patient responded to dialysis and diuretic effect is improving with IV Lasix twice a day. Patient was switched to p.o. Lasix. Co ntinue to monitor urine output. 2.Hypertension. Blood pressure fluctuating. Adjust medication accordingly. 3.Chronic kidney disease stage 4. Avoid nephrotoxic medication. 4.Patient received dialysis for acute on chronic kidney injury with fluid overload. Patient is scheduled to have dialysis catheter removal procedure for tomorrow. EB/MODL Voice ID: [id number] Report ID: [id number]
[2018-11-10] MEDS: HYDRALAZINE HCL 20 MG/ML VIAL IV PRN ×2 (03:56→12:48)
[2018-11-10 05:42] VITALS: BMI 31.9
[2018-11-10] MEDS: BROMFENAC SODIUM OPTH SCH ×2 (06:46→20:42)
[2018-11-10] MEDS: BUPROPION HCL PO SCH (06:47)
[2018-11-10] MEDS: INSULIN -REGULAR HUMAN 50 UNIT/0.5 ML ML SQ SCH ×4 (07:30→20:45)
[2018-11-10] MEDS: ISOSORBIDE MONO SR 30 MG TAB PO SCH (08:43)
[2018-11-10] MEDS: METOLAZONE 5 MG TABLET PO SCH (08:43)
[2018-11-10] MEDS: CARVEDILOL 12.5 MG TAB PO SCH ×2 (08:43→17:29)
[2018-11-10] MEDS: HYDRALAZINE HCL 25 MG TABLET PO SCH ×3 (08:43→20:44)
[2018-11-10] MEDS: GABAPENTIN 100 MG CAP PO SCH ×3 (08:44→20:43)
[2018-11-10] MEDS: DOCUSATE NA 100 MG CAP PO SCH ×2 (08:44→20:43)
[2018-11-10] MEDS: ALLOPURINOL 100 MG TAB PO SCH ×2 (08:44→20:44)
[2018-11-10] MEDS: ASPIRIN 81 MG CHEWABLE TABLET PO SCH (08:44)
[2018-11-10] MEDS: NICOTINE 14 MG/PAT TD SCH (08:44)
[2018-11-10] MEDS: INSULIN GLARGINE 100 UNITS/ML SQ SCH ×2 (08:45→20:42)
[2018-11-10] MEDS: ACETAMINOPHEN 325 MG TABLET PO SCH ×3 (09:00→20:47)
--- NOTE | 2018-11-10 09:17 | P.PN ---
Subjective Date of Service: 11/10/18 Chief Complaint: Fluid overload; CHF diastolic dysfunction; chronic kidney disease stage 5 Subjective: No new changes, Improving Patient was not discharged today as she need to have her cath pulled. Dr. Bernstein was not avalibe. He was walking in as I was walking out. Will pull the cath and we can discharge home today. Review of Systems 10-point ROS is otherwise unremarkable Physical Examination - Vital Signs Temperature: 98.2 F Blood Pressure: 169/81 Pulse: 74 Respirations: 20 Pulse Ox (%): 95 - Physical Exam General: Alert, In no apparent distress HEENT: Atraumatic, PERRLA, EOMI Neck: Supple, JVD not distended Respiratory: Clear to auscultation bilaterally, Normal air movement Cardiovascular: Regular rate/rhythm, Normal S1 S2 Gastrointestinal: Normal bowel sounds, No tenderness Musculoskeletal: No tenderness Integumentary: No rashes Neurological: Normal speech, Normal tone, Normal affect Lymphatics: No axilla or inguinal lymphadenopathy - Studies Medications List Reviewed: Yes Assessment & Plan - Problems (Diagnosis) (1) Acute renal failure superimposed on stage 4 chronic kidney disease Current Visit: Yes Status: Acute Plan: Pt gfr is not improving. Possible will start dialysis soon. Consult to Dr. Bernstein for placement. However the patient will always be high risk for surgery. Her geriatric Perioperative risk is 33.6, Mk score is greater than 11 %. However is a necessary procedure. Have discussed this with Dr. Bernstein. Will discuss with the patient. plans for a portacath today Qualifiers: Acute renal failure type: unspecified Qualified Code(s): N17.9 - Acute kidney failure, unspecified; N18.4 - Chronic kidney disease, stage 4 (severe) (2) Diastolic CHF, acute Current Visit: Yes Status: Acute Plan: can reorder an echo. The last one she had was in Jan. (3) Diabetes mellitus with insulin therapy Onset Date: 01/07/14 Current Visit: No Status: Chronic Plan: restart insulin and sliding scale. (4) Hypertension Current Visit: No Status: Chronic Plan: Not well controlled. Will adjust her medications. Qualifiers: Hypertension type: essential hypertension Qualified Code(s): I10 - Essential (primary) hypertension (5) Pain Current Visit: Yes Status: Acute Plan: will need to manage better. Cannot just continue dilaudid till discharge. Will start ambulating the patient. Use acetaminophen and oral meds. Have discussed it with her. She is somewhat motivated during the day. As stated above she usually asks in the evening time. We may consider giving some mild sedation. Discharge Plan: Home Plan to discharge in: 24 Hours - Code Status/Comfort Care Code Status Assessed: No Code Status: Full Code Physician Review: Patient Assessed, Agree with Above Assessment and Plan Critical Care: No Time Spent Managing Pts Care (In Minutes): 15
[2018-11-10 09:49] LABS: Hematocrit 31.5 % (36.0-45.0)
[2018-11-10 10:02] LABS: Protime INR 1.17
[2018-11-10] MEDS: NIFEDIPINE XL 60 MG TABLET PO SCH (10:56)
--- NOTE | 2018-11-10 11:09 | P.PN ---
Date of Service: 11/10/18 Called to remove LEFT femoral hemodialysis catheter - removed at bedside, pressure held for 5 min by myself, then passed to nursing staff to hold for 15 minutes - patient had no bleeding initially, then had lost about 100-200cc of blood, I was called to bedside, I held pressure for 10 minutes, then had patient stand, she was feeling well, somewhat dizzy after prolonged standing, but she states this occurs sometimes, and she has SOB with lying with her head down. She was cleaned. No evidence of ongoing bleeding - I ordered hemoglobin, type and screen, PT, PTT, INR, continuous pulse oximetry , telemetry. and for sitter in room for 4 hours with observation of groin. repeat Hgb in 6 hours - patient then had ambulated in halls, no bleeding, then she coughed by report and had a small amount of bleeding controlled with pressure again. - hold discharge for today, will re-assess in AM
--- NOTE | 2018-11-10 14:22 | PN ---
Date of Progress Note: 11/10/2018 Subjective: The patient is doing better. Shortness of breath has been subsided. Today, after remov al of the hemodialysis catheter, the patient developed some local bleed. Otherwise, the patient off oxygen. Physical Examination: Vital Signs: Blood pressure 194/85, pulse of 65. The patient had good urine output of 2500 as weigh t hollings[place], the patient down . Chest: Crackles bilateral. Heart: S1, S2. Regular. Abdomen: Soft, nontender. Extremities: edema. Venous stasis. Current Medications: The patient on include aspirin, nicotine, carvedilol 12.5, hydralazine 25 t.i.d ., isosorbide, nifedipine 60. Assessment And Plan: 1.Acute kidney injury secondary to cardiorenal, nonoliguric, peripheral edema without any respirator y distress. I am going to go ahead and continue diuresis. No need for dialysis anymore. 2.Over volume. Continue diuresis. We will monitor the patient. 3.Gout. Continue allopurinol. 4.Diabetes as by primary. 5.Congestive heart failure as above. NATI/CELESTINE Voice ID: [id number] Report ID: [id number]
[2018-11-10 16:50] LABS: Hematocrit 31.5 % (36.0-45.0)
[2018-11-10] MEDS: ATORVASTATIN 40 MG TAB PO SCH (20:44)
[2018-11-11] MEDS: FUROSEMIDE 40 MG/4 ML VIAL IV SCH ×2 (00:15→09:53)
[2018-11-11 04:26] LABS: Hematocrit 28.1 % (36.0-45.0)
[2018-11-11] MEDS: INSULIN -REGULAR HUMAN 50 UNIT/0.5 ML ML SQ SCH ×2 (07:30→12:05)
[2018-11-11] MEDS: BUPROPION HCL PO SCH (09:00)
[2018-11-11] MEDS: ACETAMINOPHEN 325 MG TABLET PO SCH (09:00)
[2018-11-11] MEDS: BROMFENAC SODIUM OPTH SCH (09:00)
--- NOTE | 2018-11-11 09:01 | P.DS ---
Admission Date: 11/01/18 Discharge Date: 11/11/18 Disposition: ROUTINE DISCHARGE Discharge Condition: FAIR Reason for Admission: Fluid overload; CHF diastolic dysfunction; chronic kidney disease stage 5 - Problems (1) Acute renal failure superimposed on stage 4 chronic kidney disease Current Visit: Yes Status: Acute Qualifiers: Acute renal failure type: unspecified Qualified Code(s): N17.9 - Acute kidney failure, unspecified; N18.4 - Chronic kidney disease, stage 4 (severe) (2) Diastolic CHF, acute Current Visit: Yes Status: Acute (3) Diabetes mellitus with insulin therapy Onset Date: 01/07/14 Current Visit: No Status: Chronic (4) Hypertension Current Visit: No Status: Chronic Qualifiers: Hypertension type: essential hypertension Qualified Code(s): I10 - Essential (primary) hypertension (5) Pain Current Visit: Yes Status: Acute Brief History of Present Illness: Patient was admitted by the hospitalist service for acute renal failure and fluid overload. Hospital Course: done 11/09/[address] Theodore started on diuretics. However her kidney function did not improve. Dialysis was to be started. Dr. Bernstein was consulted. Unfortunately he was not able to get a permacath She was dialysised through a temporary port. Was kept over the weekend and treated by Dr. Theodore. She was deemed safe to go home without dialysis. Will have her follow up with Dr. Theodore and myself. done on 11/11/18 Patient discharged was held due to needing her cath removed. Was done yesterday. She had bleeding afterwards and her discharge was held again. She dropped from 10 to 9.1 hb. She is otherwise feeling well this morning. Will be able to discharge her home with the above follow up. Vital Signs/Physical Exam: Temp Pulse Resp BP Pulse Ox 98.7 F 70 20 166/67 H 95 11/11/18 05:36 11/11/18 00:15 11/11/18 00:00 11/11/18 05:36 11/11/18 00:00 General: Alert, In no apparent distress HEENT: Atraumatic, PERRLA, EOMI Neck: Supple, JVD not distended Respiratory: Clear to auscultation bilaterally, Normal air movement Cardiovascular: Regular rate/rhythm, Normal S1 S2 Gastrointestinal: Normal bowel sounds, No tenderness Musculoskeletal: No tenderness Integumentary: No rashes Neurological: Normal speech, Normal tone, Normal affect Lymphatics: No axilla or inguinal lymphadenopathy Laboratory Data at Discharge: WBC 7.5 K/uL (4.3-10.9) 11/03/18 03:58 Hgb 9.1 g/dL (12.0-15.0) L 11/11/18 03:30 Hct 28.1 % (36.0-45.0) L 11/11/18 03:30 Plt Count 190 K/uL (152-406) 11/03/18 03:58 PT 13.7 SECONDS (9.5-12.5) H 11/10/18 09:35 INR 1.17 11/10/18 09:35 APTT 35.6 SECONDS (24.3-36.9) 11/10/18 09:35 Sodium 139 mmol/L (136-145) 11/09/18 04:39 Potassium 4.1 mmol/L (3.5-5.1) 11/09/18 04:39 BUN 47 mg/dL (7-18) H 11/09/18 04:39 Creatinine 2.33 mg/dL (0.55-1.3) H 11/09/18 04:39 Glucose 130 mg/dL (74-106) H 11/09/18 04:39 Phosphorus 3.0 mg/dL (2.5-4.9) 11/09/18 04:39 Magnesium 1.9 mg/dL (1.8-2.4) 11/01/18 19:40 Total Bilirubin 0.4 mg/dL (0.2-1.0) 11/02/18 03:47 AST 15 U/L (15-37) 11/02/18 03:47 ALT 14 U/L (12-78) 11/02/18 03:47 Alkaline Phosphatase 162 U/L (45-117) H 11/02/18 03:47 Troponin I 0.02 ng/mL (0.0-0.045) 11/02/18 22:13 Lipase 115 U/L (73-393) 11/01/18 19:40 Home Medications: Allopurinol [Zyloprim*] 1 tab PO BID 11/02/18 Aspirin Chewable [Aspirin Chewable*] 1 tab PO DAILY 11/02/18 Atorvastatin Calcium [Lipitor] 1 tab PO DAILY 11/02/18 Bromfenac Sodium 1 gtt OPTH BID 11/02/18 Bupropion HCl [Wellbutrin] 1 tab PO DAILY 11/02/18 Carvedilol [Coreg*] 1 tab PO BID 11/02/18 Ciprofloxacin HCl [Ciprofloxacin 0.3% Ophth Irene] 1 gtt OPTH BID 11/02/18 Difluprednate [Durezol 0.05%] 1 gtt OPTH QID 11/02/18 Furosemide [Lasix*] 1 tab PO BID 11/02/18 Gabapentin [Neurontin*] 1 tab PO TID 11/02/18 Insulin Detemir [Levemir] See Protocol SQ BID 11/02/18 Isosorbide Mononitrate [Isosorbide Mononitrate ER] 1 tab PO DAILY 11/02/18 Melatonin 1 tab PO BEDTIME PRN PRN 11/02/18 Nicotine [Nicoderm*] 1 patch TD DAILY 11/02/18 Nifedipine [Nifedipine ER] 1 tab PO DAILY 11/02/18 Diet: Renal Activity: Ad shira Followup: Noemi Morrison MD [COURTESY - CAN ADMIT] - (kidney doctor- Call office to schedule an appointment today to have labs drawn on 11/12/18 prior to follow up visit) Franki Mark MD [ACTIVE - CAN ADMIT] - 1 Week (Call to schedule an appointment) Time spent managing pt's care (in minutes): 25
[2018-11-11 09:14] VITALS: O2SAT 91
[2018-11-11] MEDS: HYDRALAZINE HCL 25 MG TABLET PO SCH (09:50)
[2018-11-11] MEDS: METOLAZONE 5 MG TABLET PO SCH (09:50)
[2018-11-11] MEDS: ASPIRIN 81 MG CHEWABLE TABLET PO SCH (09:50)
[2018-11-11] MEDS: NIFEDIPINE XL 60 MG TABLET PO SCH (09:51)
[2018-11-11] MEDS: NICOTINE 14 MG/PAT TD SCH (09:51)
[2018-11-11] MEDS: GABAPENTIN 100 MG CAP PO SCH (09:52)
[2018-11-11] MEDS: DOCUSATE NA 100 MG CAP PO SCH (09:52)
[2018-11-11] MEDS: CARVEDILOL 12.5 MG TAB PO SCH (09:52)
[2018-11-11] MEDS: ALLOPURINOL 100 MG TAB PO SCH (09:52)
[2018-11-11] MEDS: INSULIN GLARGINE 100 UNITS/ML SQ SCH (10:21)
[2018-11-11] MEDS: ISOSORBIDE MONO SR 30 MG TAB PO SCH (10:24)
[2018-11-11 12:46] LABS: Potassium 4.1 mmol/L (3.5-5.1)
[2018-11-11 12:55] VITALS: BP 175/79; TEMP 98.5
[2018-11-11] MEDS ORDERED: HYDRALAZINE HCL 25 MG TABLET PO SCH (14:00)
[2018-11-11] MEDS ORDERED: CARVEDILOL 25 MG TAB PO SCH (17:00)
--- NOTE | 2018-11-11 17:11 | PN ---
Date of Progress Note: 11/11/2018 Subjective: Patient is still doing good. No nausea. No vomiting. Shortness of breath has been sub sided. Physical Examination: Vital Signs: Blood pressure 174/74, pulse of 67. Chest: Faint crackles on the base. Heart: S1, S2. Systolic murmur. Abdomen: Soft, nontender. Extremities: +1 edema. Laboratory Data: H and H 9.1/28.1. Sodium 139, potassium 4.1, bicarb 29, BUN 47, creatinine 2.3, ca lcium 8.2, phosphorus of 3. Medications: Current medications the patient on include: 1.Aspirin. 2.Atorvastatin. 3.Carvedilol 12.5. 4.Hydralazine 75. 5.Nifedipine. 6.Isosorbide. 7.Gabapentin. 8.Lasix. 9.Metolazone. 10.Allopurinol 100 b.i.d. Assessment And Plan: 1.Acute kidney injury on advanced chronic kidney disease secondary to cardiorenal, diabetes nephropa thy, nonoliguric. No hyperkalemia. Required dialysis. Weaned off dialysis. I am going to continue current diuresis. Will follow up with the primary. 2.Hypertension, controlled, optimal. Continue current medication. 3.Congestive heart failure exacerbation. We will continue current diuresis. 4.Anemia of chronic kidney disease. No need for transfusion. We will continue to monitor. GAMA Voice ID: [id number] Report ID: [id number]
== END 2018-11-11 13:58 | disposition home health service (06) | DRG 682 ==
LOC: ER 19:07 → ERHOLD 22:33 → 4TH 11-02 00:17
PROVIDERS: ADMIT Hospitalist; ATTEND Internal Medicine
PROC: B51C1ZA Fluoroscopy of Left Lower Extremity Veins using Low Osmolar Contrast, Guidance (ICD-10-PCS; 2018-11-04)
PROC: 02JY3ZZ Inspection of Great Vessel, Percutaneous Approach (ICD-10-PCS; 2018-11-04)
PROC: 5A1D70Z Performance of Urinary Filtration, Intermittent, Less than 6 Hours Per Day (ICD-10-PCS; 2018-11-04)
PROC: 06HN33Z Insertion of Infusion Device into Left Femoral Vein, Percutaneous Approach (ICD-10-PCS; principal; 2018-11-04 09:45)
PROC: 06PYX3Z Removal of Infusion Device from Lower Vein, External Approach (ICD-10-PCS; 2018-11-10)
DX: N17.9 Acute kidney failure, unspecified (principal); I50.33 Acute on chronic diastolic (congestive) heart failure; I13.0 Hypertensive heart and chronic kidney disease with heart failure and stage 1 through stage 4 chronic kidney disease, or unspecified chronic kidney disease; J44.1 Chronic obstructive pulmonary disease with (acute) exacerbation; N18.4 Chronic kidney disease, stage 4 (severe); E11.22 Type 2 diabetes mellitus with diabetic chronic kidney disease; I25.10 Atherosclerotic heart disease of native coronary artery without angina pectoris; E78.2 Mixed hyperlipidemia; K21.9 Gastro-esophageal reflux disease without esophagitis; Z91.14 Patient's other noncompliance with medication regimen; E11.65 Type 2 diabetes mellitus with hyperglycemia; D63.1 Anemia in chronic kidney disease; M10.9 Gout, unspecified; Z79.82 Long term (current) use of aspirin; Z79.4 Long term (current) use of insulin; Z95.1 Presence of aortocoronary bypass graft; Z87.891 Personal history of nicotine dependence; Z88.5 Allergy status to narcotic agent; Z88.1 Allergy status to other antibiotic agents
CPT/HCPCS: 36415; 51702; 71045; 71250; 74176; 76000; 76770; 80048; 80053; 80069; 80076; 81003; 81015; 82550; 82962; 83605; 83690; 83735; 83880; 84145; 84166; 84484; 85014; 85018; 85025; 85610; 85730; 86021; 86317; 86704; 86706; 86803; 86850; 86900; 86901; 87040; 87077; 87086; 87088; 87186; 87340; 87389; 90935; 93005; 94660; 94760; 96374; 96375; 97116; 97162; 99285; J0360; J0696; J1170; J1644; J1940; J2175; J2250; J2405; J2704; J2930; J3010; J7030

== ENCOUNTER 2019-01-27 20:48 | Observation (INO) | payer MEDICAID ==
[2019-01-27] MEDS ORDERED: NITROGLYCERIN 1 GM PKT TD ONE (21:09)
[2019-01-27 21:26] LABS: Absolute Lymphocytes (CBC) 1.2 K/uL (0.7-4.9); Basophils % 1.3 % (0-1.3); Hematocrit 36.1 % (36.0-45.0); Lymphocytes % 8.5 % (15.3-44.8); MPV 7.9 fL (7.6-11.3); RBC Red Blood Cell Count 4.33 M/uL (3.86-4.86)
[2019-01-27 21:31] LABS: Protime INR 1.22
[2019-01-27] MEDS ORDERED: FUROSEMIDE 40 MG/4 ML VIAL ONE (21:31)
[2019-01-27] MEDS ORDERED: IPRATROPIUM BROM 0.5MG/2.5ML ONE (21:31)
[2019-01-27] MEDS ORDERED: ALBUTEROL 2.5 MG/3 ML NEB SOL ONE (21:31)
[2019-01-27] MEDS ORDERED: KETOROLAC 30 MG/ML INJ ONE (21:38)
[2019-01-27 21:45] LABS: Albumin 2.9 g/dL (3.4-5.0); Bilirubin Direct 0.2 mg/dL (0-0.2); Bilirubin Total 0.6 mg/dL (0.2-1.0); Potassium 4.5 mmol/L (3.5-5.1); Protein, Total 7.3 g/dL (6.4-8.2); Troponin (Emerg Dept Use Only) 0.04 ng/mL (0.0-0.045)
--- NOTE | 2019-01-27 22:15 | EDPHYS ---
Physician Documentation [facility] Name: Christy Priest Age: 63 yrs Sex: Female : 1955 Arrival Date: 01/27/2019 Time: 20:49 Bed 3 Private MD: ED Physician Rc Moreno HPI: 01/28 03:05 This 63 yrs old Female presents to ER via EMS with complaints of Breathing tw4 Difficulty, Chest Pain. 03:05 The patient has shortness of breath at rest. Onset: The symptoms/episode began/occurred tw4 today. Duration: The symptoms are continuous, and are unchanged since they started. The patient's shortness of breath is aggravated by exertion, walking, is alleviated by nothing. Severity of symptoms: At their worst the symptoms were moderate in the emergency department the symptoms are unchanged. The patient has experienced similar episodes in the past, several times. The patient has not recently seen a physician. 03:05 Associated signs and symptoms: Pertinent positives: chest pain, non-productive cough, tw4 Pertinent negatives: fever, hemoptysis, nausea, numbness in extremities, visual changes, vomiting. Historical: - Allergies: 01/27 20:55 Augmentin; rr5 20:55 basil; rr5 20:55 Morphine; rr5 20:55 Nitroglycerin; rr5 20:55 Tramadol HCl; rr5 20:55 Trazodone; rr5 20:55 Vancomycin; rr5 - Home Meds: 20:55 gabapentin Oral [Active]; Hydralazine Oral [Active]; insulin [Active]; Lasix Oral rr5 [Active]; Plavix Oral [Active]; - PMHx: 20:55 CHF; COPD; Diabetes - IDDM; ESRD; Hypertension; triple bypass; uterine cancer; High rr5 Cholesterol; - PSHx: 20:55 Cholecystectomy; Hysterectomy; triple bypass; rr5 - Immunization history:: Adult Immunizations unknown, Flu vaccine is up to date. - Social history:: Smoking status: Patient/guardian denies using tobacco, Patient/guardian denies using alcohol, street drugs. - Ebola Screening: : Patient negative for fever greater than or equal to 101.5 degrees Fahrenheit, and additional compatible Ebola Virus Disease symptoms Patient denies exposure to infectious person Patient denies travel to an Ebola-affected area in the 21 days before illness onset. ROS: 01/28 03:05 Constitutional: Negative for fever, chills, and weight loss, Eyes: Negative for injury, tw4 pain, redness, and discharge, Abdomen/GI: Negative for abdominal pain, nausea, vomiting, diarrhea, and constipation, Back: Negative for injury and pain, MS/Extremity: Negative for injury and deformity, Skin: Negative for injury, rash, and discoloration, Neuro: Negative for headache, weakness, numbness, tingling, and seizure. Cardiovascular: Positive for chest pain, edema, orthopnea, Negative for palpitations, paroxysmal nocturnal dyspnea. Respiratory: Positive for cough, dyspnea on exertion, orthopnea, shortness of breath, Negative for hemoptysis, pleurisy, sputum production. Exam: 03:05 Constitutional: The patient appears in obvious distress, moderately distressed. tw4 03:05 Chest/axilla: Normal chest wall appearance and motion. Nontender with no deformity. tw4 No lesions are appreciated. Cardiovascular: Regular rate and rhythm with a normal S1 and S2. No gallops, murmurs, or rubs. Normal PMI, no JVD. No pulse deficits. 03:05 Respiratory: the patient does not display signs of respiratory distress, Respirations: accessory muscle usage, that is moderate, Breath sounds: wheezing: Vital Signs: 01/27 20:50 BP 196 / 140; Pulse 76; Resp 20; Temp 98.1; Pulse Ox 98% on R/A; Weight 106.14 kg; rr5 Height 5 ft. 7 in. (170.18 cm); Pain 4/10; 21:13 BP 158 / 74; Pulse 73; Resp 21; Pulse Ox 100% on R/A; rr5 22:15 BP 165 / 85; Pulse 79; Resp 18; Pulse Ox 98% on R/A; rr5 23:18 BP 162 / 73; Pulse 76; Resp 19; Pulse Ox 95% on R/A; rr5 01/28 00:00 BP 161 / 75; Pulse 79; Resp 20; Temp 98; Pulse Ox 96% ; rr5 01/27 20:50 Body Mass Index 36.65 (106.14 kg, 170.18 cm) rr5 MDM: 01/27 20:59 Patient medically screened. tw4 01/28 03:05 Differential diagnosis: Anxiety Reaction asthma, Chronic Obstructive Pulmonary Disease tw4 Myocardial Infarction pneumonia, Pneumothorax pulmonary edema, Pulmonary Embolism reactive airway disease. Antibiotic administration: Not indicated. Data reviewed: vital signs, nurses notes. Data interpreted: Pulse oximetry: Interpretation: normal. Test interpretation: by ED physician or midlevel provider: ECG, plain radiologic studies. Counseling: I had a detailed discussion with the patient and/or guardian regarding: the historical points, exam findings, and any diagnostic results supporting the discharge/admit diagnosis, lab results, radiology results. Medication response: albuterol nebulizer treatment(s) partially relieved the patient's wheezing. Response to treatment: the patient's symptoms have mildly improved after treatment, and as a result, I will admit patient. 01/27 21: Order name: Basic Metabolic Panel; Complete Time: 22:06 01/27 21:01 Order name: CBC with Diff; Complete Time: 22:06 01/27 21:01 Order name: LFT's; Complete Time: 22:06 01/27 21:01 Order name: Magnesium; Complete Time: 22:06 01/27 21:01 Order name: NT PRO-BNP; Complete Time: 22:06 01/27 21:01 Order name: PT-INR 01/27 21:01 Order name: Troponin (emerg Dept Use Only); Complete Time: 22:06 01/27 21:01 Order name: XRAY Chest (1 view) tw01/27 21:01 Order name: Blood Culture Adult (2) tw01/27 21:01 Order name: EKG; Complete Time: 21:02 01/27 21:01 Order name: Cardiac monitoring; Complete Time: 21:02 01/27 21:01 Order name: EKG - Nurse/Tech; Complete Time: 21:02 01/27 21:01 Order name: IV Saline Lock; Complete Time: 21:02 01/27 21:01 Order name: Labs collected and sent; Complete Time: 21:02 01/27 21:01 Order name: O2 Per Protocol; Complete Time: 21:02 01/27 21:01 Order name: O2 Sat Monitoring; Complete Time: 21:01/27 23:15 Order name: Social Service Consult EDMS Administered Medications: 01/27 21:12 Drug: Nitro-Bid Ointment 2 % 1 inches {Note: left.} Route: Transdermal; Site: anterior rr5 chest wall; 22:10 Follow up: Response: No adverse reaction rr5 21:35 Drug: Lasix 40 mg Route: IVP; Site: right antecubital; rr5 22:10 Follow up: Response: No adverse reaction rr5 21:35 Drug: DuoNeb (3:1) (2.5 mg - 0.5 mg) 3 ml Route: Nebulizer; rr5 22:35 Follow up: Response: No adverse reaction; Marked relief of symptoms rr5 21:42 Drug: TORadol 30 mg Route: IVP; Site: right antecubital; rr5 22:40 Follow up: Response: No adverse reaction; Marked relief of symptoms rr5 Disposition: 01/27/19 22:14 Hospitalization ordered by Nimesh Barreto for Inpatient Admission. Preliminary diagnosis are Hypertensive heart and chronic kidney disease, Hypertensive heart disease with heart failure, ANASARCA. - Bed requested for Telemetry/MedSurg (observation). - Status is Inpatient Admission. rr5 - Condition is Fair. - Problem is new. - Symptoms have improved. UTI on Admission? No Signatures: Dispatcher [employer] EDID Susan Au RN RN mw Wadley, Terrence, MD MD tw4 Oleksandr Monae RN RN rr5 Corrections: (The following items were deleted from the chart) 21:03 21:01 PROBNP+C.LAB.BRZ ordered. [facility] EDID 22:15 22:14 Hospitalization Ordered by Rc Moreno MD for Inpatient Admission. tw4 Preliminary diagnosis is Hypertensive heart and chronic kidney disease; Hypertensive heart disease with heart failure; ANASARCA. Bed requested for Telemetry/MedSurg (observation). Status is Inpatient Admission. Condition is Fair. Problem is new. Symptoms have improved. UTI on Admission? No. tw4 23:06 22:15 01/27/2019 22:14 Hospitalization Ordered by Nimesh Barreto DO for Inpatient Admission. Preliminary diagnosis is Hypertensive heart and chronic kidney disease; Hypertensive heart disease with heart failure; ANASARCA. Bed requested for Telemetry/MedSurg (observation). Status is Inpatient Admission. Condition is Fair. Problem is new. Symptoms have improved. UTI on Admission? No. tw4 01/28 00:27 01/27 23:06 01/27/2019 22:14 Hospitalization Ordered by Nimesh Barreto DO for Inpatient rr5 Admission. Preliminary diagnosis is Hypertensive heart and chronic kidney disease; Hypertensive heart disease with heart failure; ANASARCA. Bed requested for Telemetry/MedSurg (observation). Status is Inpatient Admission. Condition is Fair. Problem is new. Symptoms have improved. UTI on Admission? No. mw 01/28 03:08 03:05 Associated signs and symptoms: The patient has no apparent associated signs or tw4 symptoms, tw4
--- NOTE | 2019-01-27 22:15 | ER ---
Nurse's Notes [facility] Name: Christy Priest Age: 63 yrs Sex: Female : 1955 Arrival Date: 01/27/2019 Time: 20:49 Bed 3 Private MD: Diagnosis: Hypertensive heart and chronic kidney disease;Hypertensive heart disease with heart failure;ANASARCA Presentation: 01/27 20:50 Presenting complaint: EMS states: patient complaints of around 330pm-4pm.chest rr5 tightness started 40 minutes ago. 20:50 Transition of care: patient was not received from another setting of care. Onset of rr5 symptoms was January 27, 2019 at 15:30. Risk Assessment: Do you want to hurt yourself or someone else? Patient reports no desire to harm self or others. Initial Sepsis Screen:. Care prior to arrival: Medication(s) given: ASA, x 4, Normal saline infusion, 1000 mL. 20:50 Method Of Arrival: EMS: [facility] rr5 20:50 Acuity: DENNY 3 rr5 20:50 Initial Sepsis Screen: Does the patient meet any 2 criteria? No. Patient's initial rr5 sepsis screen is negative. Does the patient have a suspected source of infection? No. Patient's initial sepsis screen is negative. 20:50 Care prior to arrival: Medication(s) given: in with nicotine patch at left upper arm. rr5 Triage Assessment: 20:50 Respiratory: Reports . rr5 20:50 General: Appears in no apparent distress. uncomfortable, Behavior is calm, cooperative, rr5 appropriate for age. Respiratory: the patient has mild shortness of breath. Historical: - Allergies: 20:55 Augmentin; rr5 20:55 basil; rr5 20:55 Morphine; rr5 20:55 Nitroglycerin; rr5 20:55 Tramadol HCl; rr5 20:55 Trazodone; rr5 20:55 Vancomycin; rr5 - Home Meds: 20:55 gabapentin Oral [Active]; Hydralazine Oral [Active]; insulin [Active]; Lasix Oral rr5 [Active]; Plavix Oral [Active]; - PMHx: 20:55 CHF; COPD; Diabetes - IDDM; ESRD; Hypertension; triple bypass; uterine cancer; High rr5 Cholesterol; - PSHx: 20:55 Cholecystectomy; Hysterectomy; triple bypass; rr5 - Immunization history:: Adult Immunizations unknown, Flu vaccine is up to date. - Social history:: Smoking status: Patient/guardian denies using tobacco, Patient/guardian denies using alcohol, street drugs. - Ebola Screening: : Patient negative for fever greater than or equal to 101.5 degrees Fahrenheit, and additional compatible Ebola Virus Disease symptoms Patient denies exposure to infectious person Patient denies travel to an Ebola-affected area in the 21 days before illness onset. Screenin:55 Abuse screen: Denies threats or abuse. Denies injuries from another. Nutritional rr5 screening: No deficits noted. Tuberculosis screening: No symptoms or risk factors identified. Fall Risk IV access (20 points). Gait- Weak (10 pts.). Total Merlos Fall Scale indicates Low Risk Score (25-44 pts). Fall prevention measures have been instituted. Side Rails Up X 2 Placed close to Nursing Station Frequent Obs/Assesments occuring As available Patient and Family Educated on Fall Prevention Program and strategies. Assessment: 20:50 General: Appears in no apparent distress. uncomfortable, Behavior is calm, cooperative, rr5 appropriate for age. Pain: Complains of pain in chest Pain does not radiate. Pain currently is 4 out of 10 on a pain scale. Quality of pain is described as tightness Pain began 40 minutes ago Is intermittent. 20:50 Neuro: Level of Consciousness is awake, alert, obeys commands, Oriented to person, rr5 place, time, situation, Appropriate for age. Cardiovascular: Capillary refill < 3 seconds Patient's skin is warm and dry. Edema at lower extremities noted Rhythm is sinus rhythm. Respiratory: Airway is patent Respiratory effort is even, unlabored, Respiratory pattern is regular, symmetrical. GI: Abdomen is round distended. : No signs and/or symptoms were reported regarding the genitourinary system. EENT: No signs and/or symptoms were reported regarding the EENT system. Derm: Skin is fragile, Skin temperature is warm. Musculoskeletal: Circulation, motion, and sensation intact. Capillary refill < 3 seconds. 20:50 Respiratory: Breath sounds with wheezes mild. rr5 21:57 Reassessment: Patient appears in no apparent distress at this time. Patient is alert, rr5 oriented x 3, equal unlabored respirations, skin warm/dry/pink. Patient denies pain at this time. Patient states feeling better. Patient states symptoms have improved. 21:57 Pain: Pain currently is 0 out of 10 on a pain scale. rr5 23:15 Reassessment: Patient appears in no apparent distress at this time. No changes from rr5 previously documented assessment. Patient and/or family updated on plan of care and expected duration. Pain level reassessed. dr. palomo at bedside seen and examined the patient. patient agreed for admission. 23:20 Reassessment: snacks given with good appetite. rr5 23:50 Reassessment: Patient appears in no apparent distress at this time. Patient is alert, rr5 oriented x 3, equal unlabored respirations, skin warm/dry/pink. for transfer to floor awaiting for room assignment. Vital Signs: 20:50 BP 196 / 140; Pulse 76; Resp 20; Temp 98.1; Pulse Ox 98% on R/A; Weight 106.14 kg; rr5 Height 5 ft. 7 in. (170.18 cm); Pain 4/10; 21:13 BP 158 / 74; Pulse 73; Resp 21; Pulse Ox 100% on R/A; rr5 22:15 BP 165 / 85; Pulse 79; Resp 18; Pulse Ox 98% on R/A; rr5 23:18 BP 162 / 73; Pulse 76; Resp 19; Pulse Ox 95% on R/A; rr5 01/28 00:00 BP 161 / 75; Pulse 79; Resp 20; Temp 98; Pulse Ox 96% ; rr5 01/27 20:50 Body Mass Index 36.65 (106.14 kg, 170.18 cm) rr5 ED Course: 01/27 20:49 Patient arrived in ED. jd3 20:50 Maintain EMS IV. Dressing intact. Good blood return noted. Site clean \T\ dry. Gauge \T\ rr 5 site: G20 right AC. 20:51 Oleksandr Monae RN is Primary Nurse. rr5 20:53 Triage completed. rr5 20:55 Arm band placed on. rr5 20:59 Rc Moreno MD is Attending Physician. tw4 21:00 Patient has correct armband on for positive identification. Placed in gown. Bed in low rr5 position. Call light in reach. Side rails up X2. drone software development engineer on. Pulse ox on. NIBP on. 21:00 Warm blanket given. rr5 21:02 EKG done, by ED staff, reviewed by Rc Moreno MD. rr5 21:17 XRAY Chest (1 view) In Process Unspecified. EDMS 21:35 Initial Neb Treatment Given as ordered Patient was instructed and evaluated on rr5 procedure. 22:13 Rc Moreno MD is Hospitalizing Provider. tw4 22:15 Hospitalizing Provider role handed off by Rc Moreno MD tw4 22:15 Nimesh Palomo DO is Hospitalizing Provider. tw4 22:35 Initial Neb Treatment Given as ordered Patient tolerated procedure well without adverse rr5 effect. 23:40 No provider procedures requiring assistance completed. Patient admitted, IV remains in rr5 place. intact, No redness/swelling at site. Administered Medications: 21:12 Drug: Nitro-Bid Ointment 2 % 1 inches {Note: left.} Route: Transdermal; Site: anterior rr5 chest wall; 22:10 Follow up: Response: No adverse reaction rr5 21:35 Drug: Lasix 40 mg Route: IVP; Site: right antecubital; rr5 22:10 Follow up: Response: No adverse reaction rr5 21:35 Drug: DuoNeb (3:1) (2.5 mg - 0.5 mg) 3 ml Route: Nebulizer; rr5 22:35 Follow up: Response: No adverse reaction; Marked relief of symptoms rr5 21:42 Drug: TORadol 30 mg Route: IVP; Site: right antecubital; rr5 22:40 Follow up: Response: No adverse reaction; Marked relief of symptoms rr5 Outcome: 22:14 Decision to Hospitalize by Provider. tw4 01/28 00:15 Admitted to Tele accompanied by tech, via stretcher, room 423, with chart, Report rr5 called to shahram 00:15 Condition: stable rr5 00:15 Instructed on the need for admit. 00:27 Patient left the ED. rr5 Signatures: Dispatcher [employer] Kemal Coy RN RN jRc Abdullahi MD MD tw4 Oleksandr Monae RN RN rr5 Corrections: (The following items were deleted from the chart) 01/27 21:12 21:12 Nitro-Bid Ointment 2 % 1 inches Transdermal in anterior chest wall rr5 rr5
--- NOTE | 2019-01-27 23:14 | P.HP ---
Certification for Inpatient Patient admitted to: Observation With expected LOS: <2 Midnights Patient will require the following post-hospital care: Other (Home health with physical therapy, possible home oxygen at discharge) Practitioner: I am a practitioner with admitting privileges, knowledge of patient current condition, hospital course, and medical plan of care. Services: Services provided to patient in accordance with Admission requirements found in Title 42 Section 412.3 of the Code of Federal Regulations Patient History Date of Service: 01/27/19 Primary Care Provider: MIKE Patiño([place], [place]) Reason for admission: Shortness of breath History of Present Illness: 63-year-old female with history of CAD, PVD, CHF, COPD, chronic renal disease, diabetes mellitus type 2 insulin dependent, hypertension, and hyperlipidemia. Patient presented with increasing shortness of breath and mild chest pain. Patient admits that she had ran out of her medication over the last 4 days. She was able to get to her PCP today to get a refill. Patient is on a fluid restriction and takes Lasix for CHF. She reports it has been hard to refill her medications. She came to the ER for further evaluation. In the ER patient evaluated. Blood pressures initially elevated around 200 systolic. Patient given medication in the ER with improvement. Chest x-ray showed some volume overload. Patient given Lasix with also improvement. Lab shows white count 14.3, hemoglobin 11[place] [address]. Sodium 140, potassium 4.3. BUN of 52, creatinine 1.9 with a GFR of 26. Glucose 128. Patient appeared improved but required observation. When I saw the patient in the ER, edema to the lower extremities noted. Shortness of breath had improved. Blood pressure also at improved. Patient admits not taking her medication for the last 3-4 days. Allergies morphine Allergy (Severe, Verified 08/10/18 19:54) Anaphylaxis vancomycin Allergy (Intermediate, Verified 08/10/18 19:54) Anaphylaxis amoxicillin [From Augmentin] Allergy (Verified 08/10/18 19:54) Anaphylaxis basil Allergy (Verified 08/10/18 19:54) Anaphylaxis clavulanic acid [From Augmentin] Allergy (Verified 08/10/18 19:54) Anaphylaxis nitroglycerin Adverse Reaction (Mild, Verified 07/29/17 03:02) Nausea/Vomiting Home medications list reviewed: Yes Home Medications: Allopurinol [Zyloprim*] 1 tab PO BID 11/02/18 Aspirin Chewable [Aspirin Chewable*] 1 tab PO DAILY 11/02/18 Atorvastatin Calcium [Lipitor] 1 tab PO DAILY 11/02/18 Bromfenac Sodium 1 gtt OPTH BID 11/02/18 Bupropion HCl [Wellbutrin] 1 tab PO DAILY 11/02/18 Carvedilol [Coreg*] 1 tab PO BID 11/02/18 Ciprofloxacin HCl [Ciprofloxacin 0.3% Ophth Irene] 1 gtt OPTH BID 11/02/18 Difluprednate [Durezol 0.05%] 1 gtt OPTH QID 11/02/18 Furosemide [Lasix*] 1 tab PO BID 11/02/18 Gabapentin [Neurontin*] 1 tab PO TID 11/02/18 Insulin Detemir [Levemir] See Protocol SQ BID 11/02/18 Isosorbide Mononitrate [Isosorbide Mononitrate ER] 1 tab PO DAILY 11/02/18 Melatonin 1 tab PO BEDTIME PRN PRN 11/02/18 Nicotine [Nicoderm*] 1 patch TD DAILY 11/02/18 Nifedipine [Nifedipine ER] 1 tab PO DAILY 11/02/18 - Past Medical/Surgical History Diabetic: Yes -: COPD, former tobacco use -: Hypertension -: CAD, CABG x4 vessels (August 2017) -: Diabetes mellitus type 2, insulin-dependent -: Chronic diastolic CHF -: Uterine cancer status post hysterectomy -: Chronic renal disease, stage IV -: TB as a child - Negative 2017 -: Hyperlipidemia -: Iron deficiency anemia -: Morbid obesity -: Likely obstructive sleep apnea -: Rectal surgery -: Hysterectomy -: Cholecystectomy -: Gastric surgery -: Appendectomy -: CABG x4 vessel -: Femoral popliteal bypass -: Left great toe amputation Psychosocial/ Personal History: The patient is a . Her son lives with her. She has 3 children. - Family History Father -: Heart disease, Hypertension, Stroke, Cancer Mother -: GI disease Sister -: Lung disease, Diabetes Brother -: Heart disease, Hypertension, Diabetes Notes: - Social History Smoking Status: Heavy Tobacco smoker (>10 cigarettes/day) Counseled patient to stop smoking for: less than 10 minutes Smoking therapy provided: Yes Patient receptive to therapy: Yes Alcohol use: No CD- Drugs: No Caffeine use: Yes Place of Residence: Home Review of Systems General: As per HPI Eyes: Unremarkable ENT: Unremarkable Respiratory: Shortness of Breath, SOB with Excertion, As per HPI Cardiovascular: Chest Pain, As per HPI Gastrointestinal: Unremarkable Genitourinary: Unremarkable Musculoskeletal: Pedal edema, As per HPI Integumentary: Unremarkable Neurological: Unremarkable Lymphatics: Unremarkable Physical Examination - Physical Exam General: Alert, In no apparent distress, Oriented x3, Cooperative HEENT: Atraumatic, Normocephalic, PERRLA, Mucous membr. moist/pink Neck: Supple Respiratory: Diminished (Diminished to the bases) Cardiovascular: Normal pulses, Regular rate/rhythm Gastrointestinal: Normal bowel sounds, Soft and benign, Non-distended, No tenderness, No masses, No rebound, No guarding Musculoskeletal: No tenderness, No warmth Integumentary: Tenderness/swelling (2+ pitting edema to the lower extremities bilateral) Neurological: Normal speech, Normal strength at 5/5 x4 extr, Normal tone, Normal affect - Studies Laboratory Data (last 24 hrs) 01/27/19 21:15: PT 14.3 H, INR 1.22 01/27/19 21:15: WBC 14.3 H, Hgb 11.1 L, Hct 36.1, Plt Count 237 01/27/19 21:15: Sodium 140, Potassium 4.5, BUN 52 H, Creatinine 1.94 H, Glucose 125 H, Magnesium 2.0, Total Bilirubin 0.6, AST 24, ALT 22, Alkaline Phosphatase 217 H Assessment and Plan - Plan Impression: Acute on chronic diastolic CHF Hypertensive urgency due to noncompliance with medication Diabetes mellitus type 2 insulin-dependent Chronic renal disease stage IV CAD with prior CABG x4 vessel PVD COPD Suspect obstructive sleep apnea Hyperlipidemia Diabetic neuropathy Tobacco abuse Obesity Plan: Acute on chronic diastolic CHF: Patient will be admitted for further evaluation and treatment. Patient given Lasix in the ER with improvement. Will continue with Lasix 80 mg IV twice daily. Will continue with a 1500 cc per day fluid restriction. Will recheck chest x-ray tomorrow. Will check echocardiogram. Will check to see if patient qualifies for home oxygen if required at discharge. Compliance with medication addressed in detail. Will monitor cardiac enzymes and telemetry. Will provide DVT prophylaxis-heparin. Anticipate discharge tomorrow with clinical improvement. I will turn the service over to Dr. Flores tomorrow. I will go over the plan of care with her P Hypertensive urgency due to noncompliance with medication: Compliance with medication addressed in detail. She barely was able to get refills on her medication earlier today. Will continue with her medication hydralazine 100 mg 3 times a day, nifedipine ER 60 mg daily, carvedilol 12.5 mg 1 pill twice daily. Diabetes mellitus type 2 insulin-dependent: Patient takes insulin at home. Will provide Lantus 10 units subcu twice daily. Will provide insulin sliding scale and monitor Accu-Cheks. Chronic renal disease stage IV: Overall stable. Patient sees Nephrology as an outpatient. Continue with fluid restriction and allopurinol. Recommend follow up with nephrology as an outpatient. CAD with prior CABG x4 vessel: Continue with aspirin and Plavix. Will provide a list of cardiology in the area so that she can establish care. Will check echocardiogram. PVD: Continue with aspirin and Plavix. COPD: Will provide COPD medication. Will check to see if patient requires home oxygen at discharge. Suspect obstructive sleep apnea: Will recommend sleep study as an outpatient. Hyperlipidemia: Continue with Lipitor 40 mg daily. Diabetic neuropathy: Continue with Neurontin 100 mg 3 times a day. Tobacco abuse: Will continue with nicotine patch. Cessation addressed in detail Obesity: Will address lifestyle modification education. Discharge Plan: Home Plan to discharge in: 24 Hours - Advance Directives Does patient have a Living Will: No Does patient have a Durable POA for Healthcare: Yes - Code Status/Comfort Care Code Status Assessed: Yes (Patient is full code) Time Spent Managing Pts Care (In Minutes): 55
[2019-01-28] MEDS ORDERED: ONDANSETRON 4 MG/2 ML VIAL IV PRN (00:55)
[2019-01-28] MEDS ORDERED: ALBUTEROL 2.5 MG/3 ML NEB SOL NEB PRN (00:55)
[2019-01-28] MEDS ORDERED: GLUCAGON 1 MG/VIAL IM PRN (00:55)
[2019-01-28] MEDS ORDERED: IPRATROPIUM BROM 0.5MG/2.5ML NEB PRN (00:55)
[2019-01-28] MEDS ORDERED: D50W 25 GM/50 ML SYRINGE/VIAL IV PRN (00:55)
[2019-01-28 01:05] LABS: Urine Appearance CLOUDY; Urine Bilirubin NEGATIVE (NEG); Urine Blood NEGATIVE (NEG); Urine Color YELLOW; Urine Glucose TRACE (NEG); Urine Protein 3+ (NEG); Urine Specific Gravity 1.015 (1.005-1.030); Urine Urobilinogen 0.2 mg/dL (0.2-1.0); Urine pH 5.5 (5.0-7.0)
[2019-01-28 01:06] LABS: Urine Microscopic Reflex ORDER UMIC
[2019-01-28] MEDS: ACETAMINOPHEN 500 MG TAB PO PRN ×2 (01:25→12:03)
[2019-01-28 02:02] VITALS: BMI 34.5
[2019-01-28 03:20] LABS: Urine Bacteria 20-50 /HPF (<20); Urine Culture Reflex Order REFLEXED; Urine RBC <5 /HPF (NONE SEEN)
[2019-01-28 04:30] LABS: Absolute Lymphocytes (CBC) 1.4 K/uL (0.7-4.9); Basophils % 0.6 % (0-1.3); Hematocrit 29.9 % (36.0-45.0); Lymphocytes % 10.1 % (15.3-44.8); MPV 8.1 fL (7.6-11.3); RBC Red Blood Cell Count 3.59 M/uL (3.86-4.86)
[2019-01-28 04:57] LABS: Potassium 4.3 mmol/L (3.5-5.1); Thyroid Stimulating Hormone 3.52 uIU/mL (0.360-3.740)
[2019-01-28] MEDS ORDERED: carvediloL 12.5 MG TAB PO SCH (06:00)
[2019-01-28] MEDS: INSULIN -REGULAR HUMAN 50 UNIT/0.5 ML ML SQ SCH ×2 (07:30→11:30)
[2019-01-28] MEDS ORDERED: ARFORMOTEROL TARTRATE 15 MCG/2 ML VIAL.NEB NEB SCH (08:00)
[2019-01-28] MEDS ORDERED: PNEUMOCOCCAL VACCINE 0.5 ML IMVAC ONE (08:00)
[2019-01-28] MEDS: HYDRALAZINE HCL 25 MG TABLET PO SCH ×2 (08:23→13:13)
[2019-01-28] MEDS: GABAPENTIN 100 MG CAP PO SCH ×2 (08:24→13:13)
[2019-01-28 08:25] VITALS: BP 159/66
--- NOTE | 2019-01-28 08:32 | RAD REPORT ---
EXAM DESCRIPTION: Milyt Single View01/27/2019 9:18 pm CLINICAL HISTORY: Chest pain COMPARISON: October 2018 FINDINGS: Small to moderate right pleural effusion with right basilar atelectasis. Mild bilateral in terstitial lung opacities likely mild interstitial pulmonary edema The heart is mildly to moderately enlarged. Postsurgical changes involve the chest.
--- NOTE | 2019-01-28 08:33 | RAD REPORT ---
EXAM DESCRIPTION: Butch Stephens (2 Views)01/28/2019 6:54 am CLINICAL HISTORY: Chest pain COMPARISON: January 28, 2019 chest x-ray FINDINGS: Small to moderate right pleural effusion. Mild bilateral interstitial lung opacities. . Postsurgical changes involve the chest. The heart is mildly to moderately enlarged IMPRESSION: Mild CHF
[2019-01-28 08:58] LABS: Anisocytosis 1+; Blood Morphology Comment NOTED (NOT SEEN); Platelet Estimate ADEQ
[2019-01-28] MEDS ORDERED: HEPARIN 5000 UNIT/ML 1 ML VIAL SQ SCH (09:00)
[2019-01-28] MEDS ORDERED: CLOPIDOGREL 75 MG TABLET PO SCH (09:00)
[2019-01-28] MEDS ORDERED: NICOTINE 21 MG/PAT TD SCH (09:00)
[2019-01-28] MEDS ORDERED: ASPIRIN EC 81 MG TAB PO SCH (09:00)
[2019-01-28] MEDS ORDERED: ISOSORBIDE MONO SR 30 MG TAB PO SCH (09:00)
[2019-01-28] MEDS ORDERED: INSULIN GLARGINE 100 UNITS/ML SQ SCH (09:00)
[2019-01-28] MEDS ORDERED: ALLOPURINOL 100 MG TAB PO SCH (09:00)
[2019-01-28] MEDS ORDERED: NIFEDIPINE XL 60 MG TABLET PO SCH ×2 (09:00)
[2019-01-28] MEDS ORDERED: FUROSEMIDE 40 MG/4 ML VIAL IV SCH (09:00)
[2019-01-28 09:17] VITALS: TEMP 97.2
--- NOTE | 2019-01-28 09:58 | EKG ---
Test Date: 2019-01-27 Test Time: 20:54:21 Oncology Physician: MEASUREMENT RESULTS: Intervals: Rate: 73 VA: 166 QRSD: 90 QT: 420 QTc: 462 Mobile: P: 81 VA: 166 QRS: 127 T: 136 INTERPRETIVE STATEMENTS: Normal sinus rhythm Right axis deviation Low voltage QRS Cannot rule out Anteroseptal infarct, age undetermined Abnormal ECG Compared to ECG 11/01/2018 19:33:29 No significant changes Electronically Signed On 01-28-19 09:57:09 CDT by Taj Raymond
[2019-01-28 11:44] VITALS: O2SAT 95
--- NOTE | 2019-01-28 12:44 | P.SSS ---
Patient History Date of Service: 01/28/19 Primary Care Provider: [facility]([place], [place]) Reason for admission: Shortness of breath History of Present Illness: 63-year-old female with history of CAD, PVD, CHF, COPD, chronic renal disease, diabetes mellitus type 2 insulin dependent, hypertension, and hyperlipidemia. Patient presented with increasing shortness of breath and mild chest pain. Patient admits that she had ran out of her medication over the last 4 days. She was able to get to her PCP today to get a refill. Patient is on a fluid restriction and takes Lasix for CHF. She reports it has been hard to refill her medications. She came to the ER for further evaluation. In the ER patient evaluated. Blood pressures initially elevated around 200 systolic. Patient given medication in the ER with improvement. Chest x-ray showed some volume overload. Patient given Lasix with also improvement. Lab shows white count 14.3, hemoglobin 11[place] [address]. Sodium 140, potassium 4.3. BUN of 52, creatinine 1.9 with a GFR of 26. Glucose 128. Patient appeared improved but required observation. When I saw the patient in the ER, edema to the lower extremities noted. Shortness of breath had improved. Blood pressure also at improved. Patient admits not taking her medication for the last 3-4 days. Allergies morphine Allergy (Severe, Verified 08/10/18 19:54) Anaphylaxis vancomycin Allergy (Intermediate, Verified 08/10/18 19:54) Anaphylaxis amoxicillin [From Augmentin] Allergy (Verified 08/10/18 19:54) Anaphylaxis basil Allergy (Verified 08/10/18 19:54) Anaphylaxis clavulanic acid [From Augmentin] Allergy (Verified 08/10/18 19:54) Anaphylaxis tramadol Allergy (Verified 01/28/19 03:16) Hives/Rash trazodone Allergy (Verified 01/28/19 03:16) Hives/Rash nitroglycerin Adverse Reaction (Mild, Verified 07/29/17 03:02) Nausea/Vomiting Home Medications: Allopurinol [Zyloprim*] 1 tab PO BID 11/02/18 Atorvastatin Calcium [Lipitor] 1 tab PO DAILY 11/02/18 Carvedilol [Coreg*] 1 tab PO BID 11/02/18 Furosemide [Lasix*] 1 tab PO BID 11/02/18 Gabapentin [Neurontin*] 1 tab PO TID 11/02/18 Insulin Detemir [Levemir] 10 units SQ BID 11/02/18 Isosorbide Mononitrate [Isosorbide Mononitrate ER] 1 tab PO DAILY 11/02/18 Nicotine [Nicoderm*] 1 patch TD DAILY 11/02/18 Nifedipine [Nifedipine ER] 1 tab PO DAILY 11/02/18 Albuterol Inhaler [Ventolin Inhaler*] 2 puff IH PRN PRN 01/28/19 Clopidogrel Bisulfate [Plavix*] 75 mg PO DAILY 01/28/19 Fluticasone Propion/Salmeterol [Wixela 250-50 Inhub] 2 each IH PRN PRN 01/28/19 Hydralazine [Apresoline*] 50 mg PO TID 01/28/19 - Past Medical/Surgical History Has patient received pneumonia vaccine in the past: No Diabetic: Yes -: COPD -: Hypertension -: CAD, CABG x4 vessels (August 2017) -: Diabetes mellitus type 2, insulin-dependent -: Chronic diastolic CHF -: Uterine cancer status post hysterectomy -: Chronic renal disease, stage IV -: TB as a child - Negative 2017 -: Hyperlipidemia -: Iron deficiency anemia -: Morbid obesity -: Likely obstructive sleep apnea -: Rectal surgery -: Hysterectomy -: Cholecystectomy -: Gastric surgery -: Appendectomy -: CABG x4 vessel -: Femoral popliteal bypass -: Left great toe amputation Psychosocial/ Personal History: The patient is a . Her son lives with her. She has 3 children. - Family History Father -: Heart disease, Hypertension, Stroke, Cancer Mother -: GI disease Sister -: Lung disease, Diabetes Brother -: Heart disease, Hypertension, Diabetes Notes: - Social History Smoking Status: Current every day smoker Alcohol use: No CD- Drugs: No Caffeine use: Yes Place of Residence: Home Review of Systems 10-point ROS is otherwise unremarkable Physical Examination - Vital Signs Temperature: 97.2 F Blood Pressure: 159/66 Pulse: 62 Respirations: 22 Pulse Ox (%): 95 - Physical Exam General: Alert, In no apparent distress HEENT: Atraumatic, PERRLA, Mucous membr. moist/pink, EOMI, Sclerae nonicteric Neck: Supple, 2+ carotid pulse no bruit, No LAD, Without JVD or thyroid abnormality Respiratory: Clear to auscultation bilaterally, Normal air movement Cardiovascular: Regular rate/rhythm, Normal S1 S2 Gastrointestinal: Normal bowel sounds, No tenderness Musculoskeletal: No tenderness Integumentary: No rashes Neurological: Normal gait, Normal speech, Normal strength at 5/5 x4 extr, Normal tone, Normal affect Lymphatics: No axilla or inguinal lymphadenopathy - Studies Laboratory Data (last 24 hrs) 01/27/19 21:15: PT 14.3 H, INR 1.22 01/27/19 21:15: WBC 14.3 H, Hgb 11.1 L, Hct 36.1, Plt Count 237 01/27/19 21:15: Sodium 140, Potassium 4.5, BUN 52 H, Creatinine 1.94 H, Glucose 125 H, Magnesium 2.0, Total Bilirubin 0.6, AST 24, ALT 22, Alkaline Phosphatase 217 H - Diagnosis (Problem(s)) (1) Acute exacerbation of CHF (congestive heart failure) Onset Date: 02/04/17 Current Visit: No Status: Acute Qualifiers: Qualified Code(s): I50.23 - Acute on chronic systolic (congestive) heart failure (2) Back pain Onset Date: 09/09/16 Current Visit: No Status: Chronic Qualifiers: Back pain location: low back pain Chronicity: chronic Back pain laterality: midline Sciatica presence: unspecified whether sciatica present Qualified Code(s): M54.5 - Low back pain; G89.29 - Other chronic pain (3) CAD (coronary artery disease) Onset Date: 10/03/17 Current Visit: No Status: Chronic Qualifiers: Coronary Disease-Associated Artery/Lesion type: [place] artery [place] vs. transplanted heart: [place] heart Associated angina: with stable angina Qualified Code(s): I25.118 - Atherosclerotic heart disease of [place] coronary artery with other forms of angina pectoris (4) COPD (chronic obstructive pulmonary disease) Onset Date: 02/04/17 Current Visit: No Status: Chronic Qualifiers: COPD type: chronic bronchitis Chronic bronchitis type: mucopurulent Qualified Code(s): J41.1 - Mucopurulent chronic bronchitis (5) Diabetes mellitus Onset Date: 10/03/17 Current Visit: No Status: Chronic Qualifiers: Diabetes mellitus type: type 2 Diabetes mellitus extermination inspector insulin use: with extermination inspector use Diabetes mellitus complication status: with other specified complication Qualified Code(s): E11.69 - Type 2 diabetes mellitus with other specified complication; Z79.4 - USP (current) use of insulin (6) GERD (gastroesophageal reflux disease) Onset Date: 10/03/17 Current Visit: No Status: Chronic Qualifiers: Esophagitis presence: without esophagitis Qualified Code(s): K21.9 - Gastro -esophageal reflux disease without esophagitis (7) History of - depression Current Visit: No Status: Chronic (8) History of - hypertension Current Visit: No Status: Chronic (9) History of femoropopliteal bypass Current Visit: No Status: Chronic (10) Hyperlipidemia Onset Date: 10/03/17 Current Visit: No Status: Chronic Qualifiers: Hyperlipidemia type: mixed hyperlipidemia Qualified Code(s): E78.2 - Mixed hyperlipidemia - Disposition Disposition: ROUTINE DISCHARGE Condition: GOOD Diet: Regular Activity: Ad shira
[2019-01-28] MEDS ORDERED: ATORVASTATIN 40 MG TAB PO SCH (21:00)
--- OUTSIDE RECORDS SUMMARY | 2019-02-07 17:33 | XMS REPORT ---
[...] J44.9 Active disease, unspecified COPD type Assessment superintendent terminal current use of insulin Z79.4 Active Assessment Type 2 diabetes mellitus with E11.65 Active hyperglycemia Assessment Chronic diastolic congestive heart I50.32 Active failure, NYHA class 2 Assessment Chronic kidney disease, stage 4 N18.4 Active (severe) Problem Type 2 diabetes mellitus with E11.22 Active diabetic chronic kidney disease Problem Kidney disease N28.9 Active Problem History of stroke Z86.73 Active Problem Type 2 diabetes mellitus with E11.65 Active hyperglycemia Problem superintendent terminal current use of insulin Z79.4 Active Medications Medication Code Code Instructions Start End Status Dosage System Date Date Allopurinol ND 53820758148 100 MG Oral Active TAKE 1 TABLET BY MOUTH TWICE A DAY NIFEdipine ER ND 55908671952 60 MG Oral Active TAKE 1 TABLET BY MOUTH EVERY DAY ProAir HFA ND 27460259510 108 (90 Base) Active INHALE 2 MCG/ACT PUFFS 3 TIMES A DAY NEEDED FOR SHORTNESS OF BREATH Furosemide ND 67179739785 40 MG Active TAKE BY MOUTH 1 TABLET NEEDED FOR SHORTNESS OF BREATH MAY TAKE NEEDED IF WITH INCREASE EDEMA Acetaminophen-C ND 09597850237 300-30 MG Oral Active (Schedule odeine #3 III Drug) TAKE 1 TABLET BY MOUTH EVERY 6 HOURS NEEDED FOR PAIN Carvedilol [facility] 21002515744 12.5 MG Oral Active TAKE 1 TABLET BY MOUTH TWICE A DAY Isosorbide [facility] 41383013918 30 MG Oral Active TAKE 1 Mononitrate ER TABLET BY MOUTH EVERY DAY Atorvastatin [facility] 20373416584 40 MG Oral Active TAKE 1 Calcium TABLET BY MOUTH EVERY DAY Levemir [facility] 26696428707 100 UNIT/ML Active INJECT 10 FlexTouch Subcutaneous UNITS BELOW THE SKIN IN THE MORNING Vitamin D [facility] 67168660186 25303 UNIT Oral Active TAKE ONE (Ergocalciferol CAPSULE BY ) MOUTH ONE TIME PER WEEK BuPROPion HCl [facility] 57041384087 75 MG Oral Active TAKE 1 TABLET BY MOUTH EVERY DAY Clopidogrel [facility] 00526623132 75 MG Oral Active TAKE 1 Bisulfate TABLET BY MOUTH EVERY DAY Gabapentin [facility] 49391012085 100 MG Oral Active TAKE 1 CAPSULE BY MOUTH THREE TIMES A DAY HydrALAZINE HCl [facility] 41309409497 100 MG Active TAKE 1 TABLET BY MOUTH THREE TIMES A DAY Advair Diskus [facility] 85524134965 250-50 MCG/DOSE Active INHALE 1 DOSE BY MOUTH TWICE DAILY. RINSE MOUTH AFTER USE Trazodone HCl [facility] 64230886416 50 MG Oral Active TAKE 1 TABLET BY MOUTH EVERYDAY AT BEDTIME Results No Known Results Summary Purpose eClinicalWorks Submission
--- OUTSIDE RECORDS SUMMARY | 2019-02-07 17:33 | XMS REPORT ---
:1955 [facility] [address] [place] [address] Care Team Providers Name Role Phone CORINA [...] (BEAKER) (test 220 mg/dL 70-110 TESTED AT [facility] [address] [facility] nesi=2822) [facility] [address] BASIC METABOLIC [id number] 15:47:00 Test Item Value Reference Range Comments SODIUM (BEAKER) (test 135 meq/L 136-145 fyru=435) POTASSIUM (BEAKER) (test 4.8 meq/L 3.5-5.1 uvij=142) CHLORIDE (BEAKER) (test 102 meq/L 98-107 rkxs=916) CO2 (BEAKER) (test 25 meq/L 22-29 svwe=514) BLOOD UREA NITROGEN 51 mg/dL 7-21 (BEAKER) (test rleg=182) CREATININE (BEAKER) (test 1.99 mg/dL 0.57-1.25 eiom=307) GLUCOSE RANDOM (BEAKER) 201 mg/dL 70-105 (test dtcx=129) CALCIUM (BEAKER) (test 8.8 mg/dL 8.4-10.2 boex=719) EGFR (BEAKER) (test 25 mL/min/1.73 sq m ESTIMATED GFR IS NOT yufg=4815) ACCURATE CREATININE CLEARANCE IN PREDICTING GLOMERULAR FILTRATION RATE. ESTIMATED GFR IS NOT APPLICABLE FOR DIALYSIS PATIENTS. POCT-GLUCOSE [id number] 11:30:00 Test Item Value Reference Range Comments POC-GLUCOSE METER (BEAKER) 268 mg/dL 70-110 TESTED AT [facility] [address] [facility] (test hxja=4639) [facility] [address] POCT-GLUCOSE [id number] 07:08:00 Test Item Value Reference Range Comments POC-GLUCOSE METER (BEAKER) 208 mg/dL 70-110 TESTED AT [facility] [address] [facility] (test apiu=8590) [facility] [address] CALCIUM, [id number] 06:47:00 Test Item Value Reference Range Comments CALCIUM IONIZED (BEAKER) (test mhuy=019) 1.11 mmol/L 1.12-1.27 PH, BLOOD (BEAKER) (test keqp=2892) 7.40 BASIC METABOLIC [id number] 06:40:00 Test Item Value Reference Range Comments SODIUM (BEAKER) (test 134 meq/L 136-145 kbcj=346) POTASSIUM (BEAKER) (test 4.9 meq/L 3.5-5.1 femx=637) CHLORIDE (BEAKER) (test 103 meq/L 98-107 bgpw=654) CO2 (BEAKER) (test 24 meq/L 22-29 hbog=777) BLOOD UREA NITROGEN 53 mg/dL 7-21 (BEAKER) (test uxiw=436) CREATININE (BEAKER) (test 2.02 mg/dL 0.57-1.25 adnp=110) GLUCOSE RANDOM (BEAKER) 186 mg/dL 70-105 (test azsr=939) CALCIUM (BEAKER) (test 9.1 mg/dL 8.4-10.2 vtgg=909) EGFR (BEAKER) (test 25 mL/min/1.73 sq m ESTIMATED GFR IS NOT gsoe=8584) ACCURATE CREATININE CLEARANCE IN PREDICTING GLOMERULAR FILTRATION RATE. ESTIMATED GFR IS NOT APPLICABLE FOR DIALYSIS PATIENTS. [id number] 06:33:00 Test Item Value Reference Range Comments PHOSPHORUS (BEAKER) (test mzmg=822) 5.1 mg/dL 2.3-4.7 [id number] 06:33:00 Test Item Value Reference Range Comments MAGNESIUM (BEAKER) (test rvcd=987) 2.0 mg/dL 1.6-2.6 LACTIC ACID, VENOUS, WHOLE [id number] 06:02:00 Test Item Value Reference Range Comments LACTATE BLOOD VENOUS (2) (BEAKER) (test 0.8 mmol/L 0.5-2.2 unhq=1337) Effective 08/02/2015: Units/Reference Range ChangeNew: 0.5-2.2 mmol/L Previous: 5 -20 mg/dLCBC W/PLT COUNT & AUTO [id number] 05:54:00 Test Item Value Reference Range Comments WHITE BLOOD CELL COUNT (BEAKER) (test mzpj=287) 7.1 K/ L 3.5-10.5 RED BLOOD CELL COUNT (BEAKER) (test jhqq=041) 3.68 M/ L 3.93-5.22 HEMOGLOBIN (BEAKER) (test hylc=927) 9.0 GM/DL 11.2-15.7 HEMATOCRIT (BEAKER) (test dnzl=112) 29.6 % 34.1-44.9 MEAN CORPUSCULAR VOLUME (BEAKER) (test kcmn=677) 80.4 fL 79.4-94.8 MEAN CORPUSCULAR HEMOGLOBIN (BEAKER) (test 24.5 pg 25.6-32.2 phye=114) MEAN CORPUSCULAR HEMOGLOBIN CONC (BEAKER) (test 30.4 GM/DL 32.2-35.5 ppcw=781) RED CELL DISTRIBUTION WIDTH (BEAKER) (test 16.5 % 11.7-14.4 ldgq=490) PLATELET COUNT (BEAKER) (test laai=561) 215 K/CU MM 150-450 MEAN PLATELET VOLUME (BEAKER) (test yfaa=814) 9.5 fL 9.4-12.3 NUCLEATED RED BLOOD CELLS (BEAKER) (test 0 /100 WBC 0-0 aclj=520) NEUTROPHILS RELATIVE PERCENT (BEAKER) (test 42 % kbcf=770) LYMPHOCYTES RELATIVE PERCENT (BEAKER) (test 46 % fyjg=118) MONOCYTES RELATIVE PERCENT (BEAKER) (test 6 % uqrh=475) EOSINOPHILS RELATIVE PERCENT (BEAKER) (test 5 % nzeo=179) BASOPHILS RELATIVE PERCENT (BEAKER) (test 1 % typn=033) NEUTROPHILS ABSOLUTE COUNT (BEAKER) (test 2.96 K/ L 1.56-6.13 juip=179) LYMPHOCYTES ABSOLUTE COUNT (BEAKER) (test 3.27 K/ L 1.18-3.74 ukui=380) MONOCYTES ABSOLUTE COUNT (BEAKER) (test 0.41 K/ L 0.24-0.36 vize=976) EOSINOPHILS ABSOLUTE COUNT (BEAKER) (test 0.34 K/ L 0.04-0.36 jtzb=964) BASOPHILS ABSOLUTE COUNT (BEAKER) (test 0.08 K/ L 0.01-0.08 qenr=024) IMMATURE GRANULOCYTES-RELATIVE PERCENT (BEAKER) 0 % 0-1 (test jgzz=2184) POCT-GLUCOSE [id number] 21:30:00 Test Item Value Reference Range Comments POC-GLUCOSE METER (BEAKER) 248 mg/dL 70-110 TESTED AT [address] (test cwsu=6923) [facility] [address] RAD, [id number] 21:22:00Reason for exam:->fall, tailbone painFINAL REPORT RAD, [...] MDReport Verified Date/Time: 2017 21:22:03 Reading Location: [address] Reading Room POCT- GLUCOSE [id number] 17:37:00 Test Item Value Reference Range Comments POC-GLUCOSE METER (BEAKER) 222 mg/dL 70-110 TESTED AT [address] (test jwrf=5194) [facility] [address] POCT-GLUCOSE [id number] 13:55:00 Test Item Value Reference Range Comments POC-GLUCOSE METER (BEAKER) 194 mg/dL 70-110 TESTED AT [facility] [address] [facility] (test mgcc=7197) [facility] [address] POCT-GLUCOSE [id number] 12:34:00 Test Item Value Reference Range Comments POC-GLUCOSE METER (BEAKER) 229 mg/dL 70-110 TESTED AT [address] (test ymla=5470) [facility] [address] POCT-GLUCOSE [id number] 08:00:00 Test Item Value Reference Range Comments POC-GLUCOSE METER (BEAKER) 159 mg/dL 70-110 TESTED AT [address] (test wjcv=9325) [facility] [address] CALCIUM, [id number] 06:00:00 Test Item Value Reference Range Comments CALCIUM IONIZED (BEAKER) (test rycb=137) 1.05 mmol/L 1.12-1.27 PH, BLOOD (BEAKER) (test ysfn=0796) 7.45 [id number] 05:59:00 Test Item Value Reference Range Comments PHOSPHORUS (BEAKER) (test suqi=055) 4.8 mg/dL 2.3-4.7 [id number] 05:59:00 Test Item Value Reference Range Comments MAGNESIUM (BEAKER) (test jwny=807) 2.0 mg/dL 1.6-2.6 BASIC METABOLIC [id number] 05:59:00 Test Item Value Reference Range Comments SODIUM (BEAKER) (test 134 meq/L 136-145 xkaw=347) POTASSIUM (BEAKER) (test 4.4 meq/L 3.5-5.1 qlgc=944) CHLORIDE (BEAKER) (test 103 meq/L 98-107 cvvx=832) CO2 (BEAKER) (test 23 meq/L 22-29 txus=550) BLOOD UREA NITROGEN 49 mg/dL 7-21 (BEAKER) (test twrx=762) CREATININE (BEAKER) (test 1.69 mg/dL 0.57-1.25 nprq=871) GLUCOSE RANDOM (BEAKER) 138 mg/dL 70-105 (test rlja=479) CALCIUM (BEAKER) (test 8.7 mg/dL 8.4-10.2 yjma=324) EGFR (BEAKER) (test 31 mL/min/1.73 sq m ESTIMATED GFR IS NOT dcgt=8293) ACCURATE CREATININE CLEARANCE IN PREDICTING GLOMERULAR FILTRATION RATE. ESTIMATED GFR IS NOT APPLICABLE FOR DIALYSIS PATIENTS. CREATINE KINASE (CK)2017-09-04 05:59:00 Test Item Value Reference Range Comments CREATINE KINASE TOTAL (BEAKER) (test lvva=342) 45 U/L 29-200 CBC W/PLT COUNT & AUTO [id number] 05:32:00 Test Item Value Reference Range Comments WHITE BLOOD CELL COUNT (BEAKER) (test uazz=359) 6.1 K/ L 3.5-10.5 RED BLOOD CELL COUNT (BEAKER) (test ylpr=064) 3.69 M/ L 3.93-5.22 HEMOGLOBIN (BEAKER) (test ksnv=045) 8.8 GM/DL 11.2-15.7 HEMATOCRIT (BEAKER) (test jeaa=927) 29.3 % 34.1-44.9 MEAN CORPUSCULAR VOLUME (BEAKER) (test umui=661) 79.4 fL 79.4-94.8 MEAN CORPUSCULAR HEMOGLOBIN (BEAKER) (test 23.8 pg 25.6-32.2 smfd=545) MEAN CORPUSCULAR HEMOGLOBIN CONC (BEAKER) (test 30.0 GM/DL 32.2-35.5 dtcb=407) RED CELL DISTRIBUTION WIDTH (BEAKER) (test 16.3 % 11.7-14.4 uhvz=996) PLATELET COUNT (BEAKER) (test ippe=056) 219 K/CU MM 150-450 MEAN PLATELET VOLUME (BEAKER) (test natb=905) 9.4 fL 9.4-12.3 NUCLEATED RED BLOOD CELLS (BEAKER) (test 0 /100 WBC 0-0 aygr=042) NEUTROPHILS RELATIVE PERCENT (BEAKER) (test 44 % ckbw=995) LYMPHOCYTES RELATIVE PERCENT (BEAKER) (test 43 % sqns=330) MONOCYTES RELATIVE PERCENT (BEAKER) (test 6 % svvd=223) EOSINOPHILS RELATIVE PERCENT (BEAKER) (test 6 % gqjp=662) BASOPHILS RELATIVE PERCENT (BEAKER) (test 1 % pfem=619) NEUTROPHILS ABSOLUTE COUNT (BEAKER) (test 2.67 K/ L 1.56-6.13 zkte=097) LYMPHOCYTES ABSOLUTE COUNT (BEAKER) (test 2.66 K/ L 1.18-3.74 xerb=718) MONOCYTES ABSOLUTE COUNT (BEAKER) (test 0.38 K/ L 0.24-0.36 lyfe=041) EOSINOPHILS ABSOLUTE COUNT (BEAKER) (test 0.37 K/ L 0.04-0.36 ihdd=058) BASOPHILS ABSOLUTE COUNT (BEAKER) (test 0.05 K/ L 0.01-0.08 jggk=391) IMMATURE GRANULOCYTES-RELATIVE PERCENT (BEAKER) 0 % 0-1 (test cklz=6107) POCT-GLUCOSE [id number] 20:36:00 Test Item Value Reference Range Comments POC-GLUCOSE METER (BEAKER) 211 mg/dL 70-110 TESTED AT [address] (test xvji=6936) [place] [address] CREATININE, RANDOM [id number] 19:55:00 Test Item Value Reference Range Comments CREATININE URINE (BEAKER) (test uacu=378) 16.1 mg/dL Reference Range: No NormalsPROTEIN, RANDOM [id number] 19:55:00 Test Item Value Reference Range Comments PROTEIN, URINE (BEAKER) (test tfrh=5918) 102 mg/dL 0-14 POCT-GLUCOSE [id number] 18:04:00 Test Item Value Reference Range Comments POC-GLUCOSE METER (BEAKER) 177 mg/dL 70-110 TESTED AT [address] (test lfck=6791) [place] [address] POCT-GLUCOSE [id number] 11:59:00 Test Item Value Reference Range Comments POC-GLUCOSE METER (BEAKER) 244 mg/dL 70-110 TESTED AT [address] (test kgck=9794) [place] [address] POCT-GLUCOSE [id number] 07:53:00 Test Item Value Reference Range Comments POC-GLUCOSE METER (BEAKER) 160 mg/dL 70-110 TESTED AT [address] (test steo=1647) [place] [address] BASIC METABOLIC [id number] 05:29:00 Test Item Value Reference Range Comments SODIUM (BEAKER) (test 136 meq/L 136-145 enfs=390) POTASSIUM (BEAKER) (test 4.5 meq/L 3.5-5.1 bhzy=344) CHLORIDE (BEAKER) (test 105 meq/L 98-107 hlnc=260) CO2 (BEAKER) (test 24 meq/L 22-29 qlgf=816) BLOOD UREA NITROGEN 51 mg/dL 7-21 (BEAKER) (test tzpa=313) CREATININE (BEAKER) (test 1.76 mg/dL 0.57-1.25 bmat=633) GLUCOSE RANDOM (BEAKER) 149 mg/dL 70-105 (test qnnc=951) CALCIUM (BEAKER) (test 8.9 mg/dL 8.4-10.2 gpxr=829) EGFR (BEAKER) (test 29 mL/min/1.73 sq m ESTIMATED GFR IS NOT tpdo=9825) ACCURATE CREATININE CLEARANCE IN PREDICTING GLOMERULAR FILTRATION RATE. ESTIMATED GFR IS NOT APPLICABLE FOR DIALYSIS PATIENTS. [id number] 05:21:00 Test Item Value Reference Range Comments MAGNESIUM (BEAKER) (test cihp=277) 2.1 mg/dL 1.6-2.6 HEPATIC FUNCTION [id number] 05:21:00 Test Item Value Reference Range Comments TOTAL PROTEIN (BEAKER) (test npmf=587) 6.8 gm/dL 6.0-8.3 ALBUMIN (BEAKER) (test mvsa=8755) 2.9 g/dL 3.5-5.0 BILIRUBIN TOTAL (BEAKER) (test zbbu=281) 0.5 mg/dL 0.2-1.2 BILIRUBIN DIRECT (BEAKER) (test itdy=731) 0.2 mg/dL 0.1-0.5 ALKALINE PHOSPHATASE (BEAKER) (test ejhn=240) 173 U/L 40-150 AST (SGOT) (BEAKER) (test skge=449) 25 U/L 5-34 ALT (SGPT) (BEAKER) (test vrht=719) 23 U/L 6-55 TROPONIN [id number] 05:18:00 Test Item Value Reference Range Comments TROPONIN I (BEAKER) (test ejbg=680) 0.05 ng/mL 0.00-0.03 Troponin I (TnI) levels [...] and persistent tachyarrhythmia.CBC W/PLT COUNT & AUTO [id number] 04:59:00 Test Item Value Reference Range Comments WHITE BLOOD CELL COUNT (BEAKER) (test oyzm=034) 6.9 K/ L 3.5-10.5 RED BLOOD CELL COUNT (BEAKER) (test ikny=031) 3.75 M/ L 3.93-5.22 HEMOGLOBIN (BEAKER) (test tttd=148) 8.9 GM/DL 11.2-15.7 HEMATOCRIT (BEAKER) (test mxwo=200) 29.7 % 34.1-44.9 MEAN CORPUSCULAR VOLUME (BEAKER) (test mize=814) 79.2 fL 79.4-94.8 MEAN CORPUSCULAR HEMOGLOBIN (BEAKER) (test 23.7 pg 25.6-32.2 aqsk=536) MEAN CORPUSCULAR HEMOGLOBIN CONC (BEAKER) (test 30.0 GM/DL 32.2-35.5 frok=683) RED CELL DISTRIBUTION WIDTH (BEAKER) (test 16.2 % 11.7-14.4 ljfm=727) PLATELET COUNT (BEAKER) (test tgnw=826) 240 K/CU MM 150-450 MEAN PLATELET VOLUME (BEAKER) (test nots=060) 9.6 fL 9.4-12.3 NUCLEATED RED BLOOD CELLS (BEAKER) (test 0 /100 WBC 0-0 gstg=373) NEUTROPHILS RELATIVE PERCENT (BEAKER) (test 48 % wvsn=727) LYMPHOCYTES RELATIVE PERCENT (BEAKER) (test 40 % xmpz=076) MONOCYTES RELATIVE PERCENT (BEAKER) (test 6 % zowl=289) EOSINOPHILS RELATIVE PERCENT (BEAKER) (test 5 % ueqq=733) BASOPHILS RELATIVE PERCENT (BEAKER) (test 1 % ljyg=679) NEUTROPHILS ABSOLUTE COUNT (BEAKER) (test 3.32 K/ L 1.56-6.13 jmkr=084) LYMPHOCYTES ABSOLUTE COUNT (BEAKER) (test 2.76 K/ L 1.18-3.74 dxwi=644) MONOCYTES ABSOLUTE COUNT (BEAKER) (test 0.39 K/ L 0.24-0.36 wnfc=102) EOSINOPHILS ABSOLUTE COUNT (BEAKER) (test 0.36 K/ L 0.04-0.36 pusu=377) BASOPHILS ABSOLUTE COUNT (BEAKER) (test 0.06 K/ L 0.01-0.08 kumx=463) IMMATURE GRANULOCYTES-RELATIVE PERCENT (BEAKER) 0 % 0-1 (test xdhq=2781) TROPONIN [id number] 23:40:00 Test Item Value Reference Range Comments TROPONIN I (BEAKER) (test sahd=864) 0.04 ng/mL 0.00-0.03 Troponin I (TnI) levels [...] acidosis, acute neurological disease, and persistent tachyarrhythmia.POCT-GLUCOSE [id number] 22:51:00 Test Item Value Reference Range Comments POC-GLUCOSE METER (BEAKER) 214 mg/dL 70-110 TESTED AT [address] (test mvsk=0782) [facility] [address] RAD, CHEST, 1 VIEW, NON [id number] 21:42:00Reason for exam:->CHEST PAINShould this be performed at the bedside?->YesFINAL REPORT RAD, CHEST, 1 VIEW, NON DEPT INDICATION: CHEST PAIN COMPARISON: Chest x -ray 4 weeks ago TECHNIQUE: Single frontal view of the chest. IMPRESSION: Cardiomegaly.Mild pulmonary interstitial edema with a small right-sided effusion.No acute osseous abnormality. Signed: Dario Abraham MDReport Verified Date/Time: 09/02/2017 21:42:11 Reading Location: [address] Transitional Reading Room CREATININE, RANDOM [id number] 21:10:00 Test Item Value Reference Range Comments CREATININE URINE (BEAKER) (test zqlz=514) 35.5 mg/dL Reference Range: No NormalsSODIUM, RANDOM [id number] 21:10:00 Test Item Value Reference Range Comments SODIUM URINE (BEAKER) (test fden=924) 80 meq/L Reference Range: No NormalsURINALYSIS W/ [id number] 20:59:00 Test Item Value Reference Range Comments COLOR (BEAKER) (test yptx=051) Light Yellow CLARITY (BEAKER) (test kbhe=746) Clear SPECIFIC GRAVITY UA (BEAKER) (test zfpd=239) 1.008 1.001-1.035 PH UA (BEAKER) (test cykx=236) 6.5 5.0-8.0 PROTEIN UA (BEAKER) (test dkvx=724) 200 mg/dL Negative GLUCOSE UA (BEAKER) (test aizo=749) 70 mg/dL Negative KETONES UA (BEAKER) (test wkzh=878) Negative Negative BILIRUBIN UA (BEAKER) (test fdmz=461) Negative Negative BLOOD UA (BEAKER) (test xetq=738) Negative Negative NITRITE UA (BEAKER) (test gvqr=664) Negative Negative LEUKOCYTE ESTERASE UA (BEAKER) (test rdcm=125) Negative Negative UROBILINOGEN UA (BEAKER) (test epva=660) 0.2 mg/dL 0.2-1.0 RBC UA (BEAKER) (test zrqr=732) < /HPF WBC UA (BEAKER) (test gtqv=903) 2 /HPF BACTERIA (BEAKER) (test kkpi=545) Occasional MUCUS (BEAKER) (test elxw=5144) Rare SQUAMOUS EPITHELIAL (BEAKER) (test glgo=029) 2 /HPF HYALINE CASTS (BEAKER) (test gkom=657) 7 /LPF SOURCE(BEAKER) (test qnav=6606) BASIC METABOLIC [id number] 16:49:00 Test Item Value Reference Range Comments SODIUM (BEAKER) (test 134 meq/L 136-145 lcms=735) POTASSIUM (BEAKER) (test 4.8 meq/L 3.5-5.1 pcet=675) CHLORIDE (BEAKER) (test 101 meq/L 98-107 cdmh=241) CO2 (BEAKER) (test 26 meq/L 22-29 szab=819) BLOOD UREA NITROGEN 53 mg/dL 7-21 (BEAKER) (test snpd=669) CREATININE (BEAKER) (test 2.04 mg/dL 0.57-1.25 mymy=538) GLUCOSE RANDOM (BEAKER) 267 mg/dL 70-105 (test esqh=017) CALCIUM (BEAKER) (test 9.1 mg/dL 8.4-10.2 mbvp=934) EGFR (BEAKER) (test 25 mL/min/1.73 sq m ESTIMATED GFR IS NOT jpoy=2325) ACCURATE CREATININE CLEARANCE IN PREDICTING GLOMERULAR FILTRATION RATE. ESTIMATED GFR IS NOT APPLICABLE FOR DIALYSIS PATIENTS. [id number] 16:38:00 Test Item Value Reference Range Comments PROTIME (BEAKER) (test bhct=928) 14.4 seconds 11.7-14.7 INR (BEAKER) (test jksk=216) 1.1 <=5.9 PARTIAL THROMBOPLASTIN TIME (BEAKER) (test 31.0 seconds 22.5-36.0 covi=938) RECOMMENDED COUMADIN/WARFARIN INR THERAPY RANGESSTANDARD DOSE: 2.0 - 3.0 Includes: PROPHYLAXIS forvenous thrombosis, systemic embolization; TREATMENT for venous thrombosis and/or pulmonary embolus.HIGH RISK: Target INR is 2.5-3.5 for patients with mechanical heart valves.CBC W/PLT COUNT & AUTO [id number] 16:26:00 Test Item Value Reference Range Comments WHITE BLOOD CELL COUNT (BEAKER) (test uetx=876) 6.3 K/ L 3.5-10.5 RED BLOOD CELL COUNT (BEAKER) (test zocv=783) 4.22 M/ L 3.93-5.22 HEMOGLOBIN (BEAKER) (test lbed=691) 10.1 GM/DL 11.2-15.7 HEMATOCRIT (BEAKER) (test gigg=421) 33.4 % 34.1-44.9 MEAN CORPUSCULAR VOLUME (BEAKER) (test vxpp=412) 79.1 fL 79.4-94.8 MEAN CORPUSCULAR HEMOGLOBIN (BEAKER) (test 23.9 pg 25.6-32.2 ekxo=855) MEAN CORPUSCULAR HEMOGLOBIN CONC (BEAKER) (test 30.2 GM/DL 32.2-35.5 xpno=435) RED CELL DISTRIBUTION WIDTH (BEAKER) (test 16.1 % 11.7-14.4 gqee=384) PLATELET COUNT (BEAKER) (test ipov=584) 252 K/CU MM 150-450 MEAN PLATELET VOLUME (BEAKER) (test btbi=019) 9.5 fL 9.4-12.3 NUCLEATED RED BLOOD CELLS (BEAKER) (test 0 /100 WBC 0-0 kbqd=704) NEUTROPHILS RELATIVE PERCENT (BEAKER) (test 49 % dtbi=826) LYMPHOCYTES RELATIVE PERCENT (BEAKER) (test 38 % tscz=467) MONOCYTES RELATIVE PERCENT (BEAKER) (test 6 % ifwj=085) EOSINOPHILS RELATIVE PERCENT (BEAKER) (test 5 % fhyv=561) BASOPHILS RELATIVE PERCENT (BEAKER) (test 1 % qsnm=906) NEUTROPHILS ABSOLUTE COUNT (BEAKER) (test 3.08 K/ L 1.56-6.13 cdvf=937) LYMPHOCYTES ABSOLUTE COUNT (BEAKER) (test 2.42 K/ L 1.18-3.74 vxhz=430) MONOCYTES ABSOLUTE COUNT (BEAKER) (test 0.40 K/ L 0.24-0.36 ysct=461) EOSINOPHILS ABSOLUTE COUNT (BEAKER) (test 0.33 K/ L 0.04-0.36 olpr=188) BASOPHILS ABSOLUTE COUNT (BEAKER) (test 0.07 K/ L 0.01-0.08 lzex=455) IMMATURE GRANULOCYTES-RELATIVE PERCENT (BEAKER) 0 % 0-1 (test sywy=3615) B-TYPE NATRIURETIC FACTOR (BNP)2017-09-02 13:47:00 Test Item Value Reference Range Comments B-TYPE NATRIURETIC PEPTIDE (BEAKER) (test 1942 pg/mL 0-100 tfvj=615) BASIC METABOLIC [id number] 13:43:00 Test Item Value Reference Range Comments SODIUM (BEAKER) (test 134 meq/L 136-145 aifg=335) POTASSIUM (BEAKER) (test 5.2 meq/L 3.5-5.1 seyj=316) CHLORIDE (BEAKER) (test 101 meq/L 98-107 tlpt=833) CO2 (BEAKER) (test 25 meq/L 22-29 obhr=454) BLOOD UREA NITROGEN 55 mg/dL 7-21 (BEAKER) (test ukap=285) CREATININE (BEAKER) (test 2.09 mg/dL 0.57-1.25 ghrw=827) GLUCOSE RANDOM (BEAKER) 317 mg/dL 70-105 (test ubui=082) CALCIUM (BEAKER) (test 9.2 mg/dL 8.4-10.2 glwc=960) EGFR (BEAKER) (test 24 mL/min/1.73 sq m ESTIMATED GFR IS NOT xdlo=4606) ACCURATE CREATININE CLEARANCE IN PREDICTING GLOMERULAR FILTRATION RATE. ESTIMATED GFR IS NOT APPLICABLE FOR DIALYSIS PATIENTS. POCT-GLUCOSE [id number] 12:44:00 Test Item Value Reference Range Comments POC-GLUCOSE METER (BEAKER) 283 mg/dL 70-110 TESTED AT [facility] [address] [facility] (test tayk=3627) [facility] [address] CALCIUM, [id number] 07:03:00 Test Item Value Reference Range Comments CALCIUM IONIZED (BEAKER) (test gsda=869) 1.02 mmol/L 1.12-1.27 PH, BLOOD (BEAKER) (test mtgc=8293) 7.43 [id number] 05:28:00 Test Item Value Reference Range Comments PHOSPHORUS (BEAKER) (test vubn=013) 3.3 mg/dL 2.3-4.7 [id number] 05:28:00 Test Item Value Reference Range Comments MAGNESIUM (BEAKER) (test omsr=550) 1.5 mg/dL 1.6-2.6 BASIC METABOLIC [id number] 05:28:00 Test Item Value Reference Range Comments SODIUM (BEAKER) (test 135 meq/L 136-145 jvcb=437) POTASSIUM (BEAKER) (test 3.9 meq/L 3.5-5.1 refi=115) CHLORIDE (BEAKER) (test 101 meq/L 98-107 sjnv=422) CO2 (BEAKER) (test 27 meq/L 22-29 djxt=677) BLOOD UREA NITROGEN 35 mg/dL 7-21 (BEAKER) (test gieg=745) CREATININE (BEAKER) (test 1.37 mg/dL 0.57-1.25 btdy=874) GLUCOSE RANDOM (BEAKER) 145 mg/dL 70-105 (test mthz=322) CALCIUM (BEAKER) (test 8.3 mg/dL 8.4-10.2 fvzm=580) EGFR (BEAKER) (test 39 mL/min/1.73 sq m ESTIMATED GFR IS NOT wosd=0240) ACCURATE CREATININE CLEARANCE IN PREDICTING GLOMERULAR FILTRATION RATE. ESTIMATED GFR IS NOT APPLICABLE FOR DIALYSIS PATIENTS. CBC W/PLT COUNT & AUTO [id number] 05:06:00 Test Item Value Reference Range Comments WHITE BLOOD CELL COUNT (BEAKER) (test dqbn=763) 9.3 K/ L 3.5-10.5 RED BLOOD CELL COUNT (BEAKER) (test wbco=613) 3.64 M/ L 3.93-5.22 HEMOGLOBIN (BEAKER) (test uneb=895) 8.7 GM/DL 11.2-15.7 HEMATOCRIT (BEAKER) (test axbl=406) 28.5 % 34.1-44.9 MEAN CORPUSCULAR VOLUME (BEAKER) (test tkfu=564) 78.3 fL 79.4-94.8 MEAN CORPUSCULAR HEMOGLOBIN (BEAKER) (test 23.9 pg 25.6-32.2 dhcv=841) MEAN CORPUSCULAR HEMOGLOBIN CONC (BEAKER) (test 30.5 GM/DL 32.2-35.5 omsa=532) RED CELL DISTRIBUTION WIDTH (BEAKER) (test 14.6 % 11.7-14.4 rwyx=045) PLATELET COUNT (BEAKER) (test kwdj=226) 336 K/CU MM 150-450 MEAN PLATELET VOLUME (BEAKER) (test euom=616) 9.3 fL 9.4-12.3 NUCLEATED RED BLOOD CELLS (BEAKER) (test 0 /100 WBC 0-0 lhbj=664) NEUTROPHILS RELATIVE PERCENT (BEAKER) (test 50 % suik=401) LYMPHOCYTES RELATIVE PERCENT (BEAKER) (test 40 % sgvl=369) MONOCYTES RELATIVE PERCENT (BEAKER) (test 6 % przm=358) EOSINOPHILS RELATIVE PERCENT (BEAKER) (test 3 % fagb=878) BASOPHILS RELATIVE PERCENT (BEAKER) (test 1 % vlis=574) NEUTROPHILS ABSOLUTE COUNT (BEAKER) (test 4.66 K/ L 1.56-6.13 qtzp=425) LYMPHOCYTES ABSOLUTE COUNT (BEAKER) (test 3.71 K/ L 1.18-3.74 iadt=752) MONOCYTES ABSOLUTE COUNT (BEAKER) (test 0.53 K/ L 0.24-0.36 iliq=004) EOSINOPHILS ABSOLUTE COUNT (BEAKER) (test 0.31 K/ L 0.04-0.36 fmkt=391) BASOPHILS ABSOLUTE COUNT (BEAKER) (test 0.07 K/ L 0.01-0.08 tbvg=714) IMMATURE GRANULOCYTES-RELATIVE PERCENT (BEAKER) 1 % 0-1 (test twht=3199) POCT-GLUCOSE [id number] 21:08:00 Test Item Value Reference Range Comments POC-GLUCOSE METER (BEAKER) 202 mg/dL 70-110 TESTED AT [address] (test czue=3399) [facility] [address] POCT-GLUCOSE [id number] 16:50:00 Test Item Value Reference Range Comments POC-GLUCOSE METER (BEAKER) 287 mg/dL 70-110 TESTED AT [address] (test nobq=0203) [facility] [address] POCT-GLUCOSE [id number] 12:21:00 Test Item Value Reference Range Comments POC-GLUCOSE METER (BEAKER) 213 mg/dL 70-110 TESTED AT [address] (test yggk=1817) [facility] [address] POCT-GLUCOSE [id number] 08:28:00 Test Item Value Reference Range Comments POC-GLUCOSE METER (BEAKER) 178 mg/dL 70-110 TESTED AT [address] (test bufk=7839) [facility] [address] CALCIUM, [id number] 07:06:00 Test Item Value Reference Range Comments CALCIUM IONIZED (BEAKER) (test euhv=087) 0.99 mmol/L 1.12-1.27 PH, BLOOD (BEAKER) (test ysgk=1411) 7.42 [id number] 05:37:00 Test Item Value Reference Range Comments PHOSPHORUS (BEAKER) (test zmuo=195) 3.5 mg/dL 2.3-4.7 [id number] 05:37:00 Test Item Value Reference Range Comments MAGNESIUM (BEAKER) (test yvss=368) 1.6 mg/dL 1.6-2.6 BASIC METABOLIC [id number] 05:37:00 Test Item Value Reference Range Comments SODIUM (BEAKER) (test 133 meq/L 136-145 hcmt=229) POTASSIUM (BEAKER) (test 3.8 meq/L 3.5-5.1 xata=366) CHLORIDE (BEAKER) (test 101 meq/L 98-107 rpsb=054) CO2 (BEAKER) (test 25 meq/L 22-29 ojpy=153) BLOOD UREA NITROGEN 39 mg/dL 7-21 (BEAKER) (test edfb=710) CREATININE (BEAKER) (test 1.42 mg/dL 0.57-1.25 cjrg=806) GLUCOSE RANDOM (BEAKER) 200 mg/dL 70-105 (test mwqe=025) CALCIUM (BEAKER) (test 8.0 mg/dL 8.4-10.2 pqfy=455) EGFR (BEAKER) (test 37 mL/min/1.73 sq m ESTIMATED GFR IS NOT xsph=2412) ACCURATE CREATININE CLEARANCE IN PREDICTING GLOMERULAR FILTRATION RATE. ESTIMATED GFR IS NOT APPLICABLE FOR DIALYSIS PATIENTS. CBC W/PLT COUNT & AUTO [id number] 05:07:00 Test Item Value Reference Range Comments WHITE BLOOD CELL COUNT (BEAKER) (test dkbd=891) 9.2 K/ L 3.5-10.5 RED BLOOD CELL COUNT (BEAKER) (test vbcd=466) 3.69 M/ L 3.93-5.22 HEMOGLOBIN (BEAKER) (test zowd=791) 8.8 GM/DL 11.2-15.7 HEMATOCRIT (BEAKER) (test etjb=754) 28.8 % 34.1-44.9 MEAN CORPUSCULAR VOLUME (BEAKER) (test cnht=058) 78.0 fL 79.4-94.8 MEAN CORPUSCULAR HEMOGLOBIN (BEAKER) (test 23.8 pg 25.6-32.2 fmjj=236) MEAN CORPUSCULAR HEMOGLOBIN CONC (BEAKER) (test 30.6 GM/DL 32.2-35.5 smds=197) RED CELL DISTRIBUTION WIDTH (BEAKER) (test 14.6 % 11.7-14.4 hrsb=457) PLATELET COUNT (BEAKER) (test nghk=348) 308 K/CU MM 150-450 MEAN PLATELET VOLUME (BEAKER) (test ushc=564) 9.3 fL 9.4-12.3 NUCLEATED RED BLOOD CELLS (BEAKER) (test 0 /100 WBC 0-0 ozyr=678) NEUTROPHILS RELATIVE PERCENT (BEAKER) (test 61 % ekud=529) LYMPHOCYTES RELATIVE PERCENT (BEAKER) (test 30 % rblw=177) MONOCYTES RELATIVE PERCENT (BEAKER) (test 5 % zmvp=193) EOSINOPHILS RELATIVE PERCENT (BEAKER) (test 3 % zxeu=928) BASOPHILS RELATIVE PERCENT (BEAKER) (test 0 % kgih=040) NEUTROPHILS ABSOLUTE COUNT (BEAKER) (test 5.67 K/ L 1.56-6.13 sxox=999) LYMPHOCYTES ABSOLUTE COUNT (BEAKER) (test 2.72 K/ L 1.18-3.74 shoa=220) MONOCYTES ABSOLUTE COUNT (BEAKER) (test 0.48 K/ L 0.24-0.36 yznm=222) EOSINOPHILS ABSOLUTE COUNT (BEAKER) (test 0.26 K/ L 0.04-0.36 rzeq=629) BASOPHILS ABSOLUTE COUNT (BEAKER) (test 0.04 K/ L 0.01-0.08 svlv=989) IMMATURE GRANULOCYTES-RELATIVE PERCENT (BEAKER) 1 % 0-1 (test fcxf=7182) POCT-GLUCOSE [id number] 21:24:00 Test Item Value Reference Range Comments POC-GLUCOSE METER (BEAKER) 255 mg/dL 70-110 TESTED AT [address] (test nipy=5426) [place] [id number] POCT-GLUCOSE [id number] 17:11:00 Test Item Value Reference Range Comments POC-GLUCOSE METER (BEAKER) 244 mg/dL 70-110 TESTED AT [address] (test tedd=2139) [facility] [address] POCT-GLUCOSE [id number] 11:54:00 Test Item Value Reference Range Comments POC-GLUCOSE METER (BEAKER) 209 mg/dL 70-110 TESTED AT [address] (test casv=8058) [place] [id number] POCT-GLUCOSE [id number] 08:15:00 Test Item Value Reference Range Comments POC-GLUCOSE METER (BEAKER) 132 mg/dL 70-110 TESTED AT [address] (test rixl=5132) [facility] [address] RAD, CHEST, 1 VIEW, NON [id number] 07:44:00Reason for exam:->edemaShould this be performed at the bedside?->YesFINAL REPORT Chest one view AP 08/07/2017 7:44 AM CLINICAL INDICATION: edema COMPARISON: 2017 IMPRESSION: Cardiomediastinal contours are stable. There is mild pulmonary edema,asymmetric to the right. There are trace bilateral pleural effusions, with bibasilar linear atelectasis. Sternotomy wires remain midline. Signed: Eder Cespedes Verified Date/Time: 08/07/2017 07:44:22 Reading Location: [facility] Radiology Reading Room [id number] 05:30:00 Test Item Value Reference Range Comments FERRITIN (BEAKER) (test aobz=009) 87 ng/mL 5-275 CBC W/PLT COUNT & AUTO [id number] 05:21:00 Test Item Value Reference Range Comments WHITE BLOOD CELL COUNT (BEAKER) (test czmi=020) 12.4 K/ L 3.5-10.5 RED BLOOD CELL COUNT (BEAKER) (test amlf=479) 3.78 M/ L 3.93-5.22 HEMOGLOBIN (BEAKER) (test yajo=247) 9.0 GM/DL 11.2-15.7 HEMATOCRIT (BEAKER) (test uxfa=322) 29.3 % 34.1-44.9 MEAN CORPUSCULAR VOLUME (BEAKER) (test xqtk=072) 77.5 fL 79.4-94.8 MEAN CORPUSCULAR HEMOGLOBIN (BEAKER) (test 23.8 pg 25.6-32.2 foqj=100) MEAN CORPUSCULAR HEMOGLOBIN CONC (BEAKER) (test 30.7 GM/DL 32.2-35.5 ldey=239) RED CELL DISTRIBUTION WIDTH (BEAKER) (test 14.7 % 11.7-14.4 pjiz=483) PLATELET COUNT (BEAKER) (test wabj=781) 316 K/CU MM 150-450 MEAN PLATELET VOLUME (BEAKER) (test glrd=885) 9.6 fL 9.4-12.3 NUCLEATED RED BLOOD CELLS (BEAKER) (test 0 /100 WBC 0-0 xlub=230) NEUTROPHILS RELATIVE PERCENT (BEAKER) (test 72 % bvkz=811) LYMPHOCYTES RELATIVE PERCENT (BEAKER) (test 20 % pdej=456) MONOCYTES RELATIVE PERCENT (BEAKER) (test 5 % wljv=388) EOSINOPHILS RELATIVE PERCENT (BEAKER) (test 2 % wtgq=857) BASOPHILS RELATIVE PERCENT (BEAKER) (test 1 % idta=750) NEUTROPHILS ABSOLUTE COUNT (BEAKER) (test 8.93 K/ L 1.56-6.13 kmwy=467) LYMPHOCYTES ABSOLUTE COUNT (BEAKER) (test 2.51 K/ L 1.18-3.74 pyqs=760) MONOCYTES ABSOLUTE COUNT (BEAKER) (test 0.58 K/ L 0.24-0.36 xnim=547) EOSINOPHILS ABSOLUTE COUNT (BEAKER) (test 0.23 K/ L 0.04-0.36 cpyd=222) BASOPHILS ABSOLUTE COUNT (BEAKER) (test 0.07 K/ L 0.01-0.08 xhrb=001) IMMATURE GRANULOCYTES-RELATIVE PERCENT (BEAKER) 1 % 0-1 (test mldv=7886) IRON, TIBC, % SAT. (WITHOUT FERRITIN)2017-08-07 05:16:00 Test Item Value Reference Range Comments IRON (BEAKER) (test qrxy=327) 21 ug/dL 40-160 TOTAL IRON BINDING CAPACITY (BEAKER) (test 184 ug/dL 250-450 yvad=992) IRON % SATURATION (2) (BEAKER) (test tbkj=8759) 11 % 20-55 [id number] 05:11:00 Test Item Value Reference Range Comments PHOSPHORUS (BEAKER) (test hvzz=698) 3.6 mg/dL 2.3-4.7 [id number] 05:11:00 Test Item Value Reference Range Comments MAGNESIUM (BEAKER) (test mcfn=681) 2.0 mg/dL 1.6-2.6 BASIC METABOLIC [id number] 05:11:00 Test Item Value Reference Range Comments SODIUM (BEAKER) (test 134 meq/L 136-145 ghnx=386) POTASSIUM (BEAKER) (test 3.9 meq/L 3.5-5.1 zfpg=243) CHLORIDE (BEAKER) (test 102 meq/L 98-107 akqm=750) CO2 (BEAKER) (test 23 meq/L 22-29 hjla=826) BLOOD UREA NITROGEN 41 mg/dL 7-21 (BEAKER) (test evxc=751) CREATININE (BEAKER) (test 1.63 mg/dL 0.57-1.25 nkqm=905) GLUCOSE RANDOM (BEAKER) 124 mg/dL 70-105 (test qxgw=664) CALCIUM (BEAKER) (test 8.3 mg/dL 8.4-10.2 edul=649) EGFR (BEAKER) (test 32 mL/min/1.73 sq m ESTIMATED GFR IS NOT frjx=6743) ACCURATE CREATININE CLEARANCE IN PREDICTING GLOMERULAR FILTRATION RATE. ESTIMATED GFR IS NOT APPLICABLE FOR DIALYSIS PATIENTS. B-TYPE NATRIURETIC FACTOR (BNP)2017-08-07 05:05:00 Test Item Value Reference Range Comments B-TYPE NATRIURETIC PEPTIDE (BEAKER) (test 1561 pg/mL 0-100 otew=379) CALCIUM, [id number] 04:58:00 Test Item Value Reference Range Comments CALCIUM IONIZED (BEAKER) (test jcpe=150) 1.04 mmol/L 1.12-1.27 PH, BLOOD (BEAKER) (test ober=6978) 7.41 RETICULOCYTE [id number] 04:51:00 Test Item Value Reference Range Comments RETICULOCYTE COUNT PCT (BEAKER) (test ixul=173) 1.2 % 0.5-1.7 POCT-GLUCOSE [id number] 20:49:00 Test Item Value Reference Range Comments POC-GLUCOSE METER (BEAKER) 202 mg/dL 70-110 TESTED AT [facility] [address] [facility] (test wita=4273) [facility] [address] CREATININE, RANDOM [id number] 18:38:00 Test Item Value Reference Range Comments CREATININE URINE (BEAKER) (test jvvc=794) 56.3 mg/dL Reference Range: No NormalsPROTEIN, RANDOM [id number] 18:38:00 Test Item Value Reference Range Comments PROTEIN, URINE (BEAKER) (test oxyg=8849) 189 mg/dL 0-14 URINALYSIS W/ [id number] 18:34:00 Test Item Value Reference Range Comments COLOR (BEAKER) (test tfad=909) Light Yellow CLARITY (BEAKER) (test zwgu=771) Hazy SPECIFIC GRAVITY UA (BEAKER) (test dpbl=932) 1.008 1.001-1.035 PH UA (BEAKER) (test vxpg=669) 5.5 5.0-8.0 PROTEIN UA (BEAKER) (test aumc=610) 100 mg/dL Negative GLUCOSE UA (BEAKER) (test spyd=488) 30 mg/dL Negative KETONES UA (BEAKER) (test zzfd=151) Negative Negative BILIRUBIN UA (BEAKER) (test rcaf=431) Negative Negative BLOOD UA (BEAKER) (test rgpk=458) Negative Negative NITRITE UA (BEAKER) (test uxdj=587) Negative Negative LEUKOCYTE ESTERASE UA (BEAKER) (test iswp=361) Negative Negative UROBILINOGEN UA (BEAKER) (test vepw=877) 0.2 mg/dL 0.2-1.0 RBC UA (BEAKER) (test lwzu=133) < /HPF WBC UA (BEAKER) (test txjt=790) 2 /HPF BACTERIA (BEAKER) (test srwp=614) Rare MUCUS (BEAKER) (test befq=0527) Rare SQUAMOUS EPITHELIAL (BEAKER) (test lhgo=340) 8 /HPF SOURCE(BEAKER) (test yufh=1270) Urine, Voided POCT-GLUCOSE [id number] 17:38:00 Test Item Value Reference Range Comments POC-GLUCOSE METER (BEAKER) 143 mg/dL 70-110 TESTED AT [address] (test hlbx=6719) [place] [address] POCT-GLUCOSE [id number] 12:30:00 Test Item Value Reference Range Comments POC-GLUCOSE METER (BEAKER) 218 mg/dL 70-110 TESTED AT [address] (test mqfn=1357) [place] [address] POCT-GLUCOSE [id number] 08:00:00 Test Item Value Reference Range Comments POC-GLUCOSE METER (BEAKER) 134 mg/dL 70-110 TESTED AT [address] (test qmtf=4541) [place] [address] CBC W/PLT COUNT & AUTO [id number] 04:23:00 Test Item Value Reference Range Comments WHITE BLOOD CELL COUNT (BEAKER) (test dpoh=205) 13.9 K/ L 3.5-10.5 RED BLOOD CELL COUNT (BEAKER) (test hwgs=121) 3.23 M/ L 3.93-5.22 HEMOGLOBIN (BEAKER) (test ybgi=628) 7.6 GM/DL 11.2-15.7 HEMATOCRIT (BEAKER) (test szrx=713) 25.3 % 34.1-44.9 MEAN CORPUSCULAR VOLUME (BEAKER) (test qqoc=157) 78.3 fL 79.4-94.8 MEAN CORPUSCULAR HEMOGLOBIN (BEAKER) (test 23.5 pg 25.6-32.2 okhm=769) MEAN CORPUSCULAR HEMOGLOBIN CONC (BEAKER) (test 30.0 GM/DL 32.2-35.5 tuir=077) RED CELL DISTRIBUTION WIDTH (BEAKER) (test 14.8 % 11.7-14.4 qhlg=915) PLATELET COUNT (BEAKER) (test yozg=647) 284 K/CU MM 150-450 MEAN PLATELET VOLUME (BEAKER) (test ghlq=063) 9.8 fL 9.4-12.3 NUCLEATED RED BLOOD CELLS (BEAKER) (test 0 /100 WBC 0-0 lwwj=591) NEUTROPHILS RELATIVE PERCENT (BEAKER) (test 77 % sley=007) LYMPHOCYTES RELATIVE PERCENT (BEAKER) (test 16 % rnmo=997) MONOCYTES RELATIVE PERCENT (BEAKER) (test 4 % vjzv=858) EOSINOPHILS RELATIVE PERCENT (BEAKER) (test 2 % yjii=813) BASOPHILS RELATIVE PERCENT (BEAKER) (test 1 % zogq=218) NEUTROPHILS ABSOLUTE COUNT (BEAKER) (test 10.70 K/ L 1.56-6.13 bjty=917) LYMPHOCYTES ABSOLUTE COUNT (BEAKER) (test 2.17 K/ L 1.18-3.74 zfrg=731) MONOCYTES ABSOLUTE COUNT (BEAKER) (test 0.57 K/ L 0.24-0.36 burz=760) EOSINOPHILS ABSOLUTE COUNT (BEAKER) (test 0.30 K/ L 0.04-0.36 arki=057) BASOPHILS ABSOLUTE COUNT (BEAKER) (test 0.08 K/ L 0.01-0.08 gcpn=349) IMMATURE GRANULOCYTES-RELATIVE PERCENT (BEAKER) 1 % 0-1 (test nmrx=1585) BASIC METABOLIC [id number] 04:13:00 Test Item Value Reference Range Comments SODIUM (BEAKER) (test 134 meq/L 136-145 pybp=637) POTASSIUM (BEAKER) (test 4.6 meq/L 3.5-5.1 mpsr=747) CHLORIDE (BEAKER) (test 103 meq/L 98-107 pwbw=385) CO2 (BEAKER) (test 23 meq/L 22-29 zedv=471) BLOOD UREA NITROGEN 43 mg/dL 7-21 (BEAKER) (test ryed=017) CREATININE (BEAKER) (test 1.79 mg/dL 0.57-1.25 mscl=608) GLUCOSE RANDOM (BEAKER) 123 mg/dL 70-105 (test kwek=705) CALCIUM (BEAKER) (test 8.1 mg/dL 8.4-10.2 iyan=327) EGFR (BEAKER) (test 29 mL/min/1.73 sq m ESTIMATED GFR IS NOT ohne=9072) ACCURATE CREATININE CLEARANCE IN PREDICTING GLOMERULAR FILTRATION RATE. ESTIMATED GFR IS NOT APPLICABLE FOR DIALYSIS PATIENTS. [id number] 04:10:00 Test Item Value Reference Range Comments PHOSPHORUS (BEAKER) (test ngym=009) 4.9 mg/dL 2.3-4.7 [id number] 04:10:00 Test Item Value Reference Range Comments MAGNESIUM (BEAKER) (test foyu=520) 1.4 mg/dL 1.6-2.6 [id number] 04:08:00 Test Item Value Reference Range Comments FIBRINOGEN LEVEL (BEAKER) (test aymd=590) 548 mg/dl 225-434 [id number] 04:08:00 Test Item Value Reference Range Comments PARTIAL THROMBOPLASTIN TIME (BEAKER) (test 37.7 seconds 22.5-36.0 fzvj=450) PROTHROMBIN [id number] 04:07:00 Test Item Value Reference Range Comments PROTIME (BEAKER) (test lsqm=084) 16.2 seconds 11.7-14.7 INR (BEAKER) (test pffy=529) 1.3 <=5.9 RECOMMENDED COUMADIN/WARFARIN INR THERAPY RANGESSTANDARD DOSE: 2.0 - 3.0 Includes: PROPHYLAXIS forvenous thrombosis, systemic embolization; TREATMENT for venous thrombosis and/or pulmonary embolus.HIGH RISK: Target INR is 2.5-3.5 for patients with mechanical heart valves.[id number] 16:59:00 Test Item Value Reference Range Comments ACTIVATED CLOTTING TIME 219 sec TESTED AT [facility] [address] (BEAKER) (test oabw=169) [facility] [address] BASIC METABOLIC [id number] 14:25:00 Test Item Value Reference Range Comments SODIUM (BEAKER) (test 134 meq/L 136-145 ofus=837) POTASSIUM (BEAKER) (test 4.4 meq/L 3.5-5.1 iutk=422) CHLORIDE (BEAKER) (test 103 meq/L 98-107 swfv=738) CO2 (BEAKER) (test 22 meq/L 22-29 pwcx=824) BLOOD UREA NITROGEN 46 mg/dL 7-21 (BEAKER) (test oyny=516) CREATININE (BEAKER) (test 2.16 mg/dL 0.57-1.25 pcnl=487) GLUCOSE RANDOM (BEAKER) 160 mg/dL 70-105 (test kogq=499) CALCIUM (BEAKER) (test 7.8 mg/dL 8.4-10.2 fchr=004) EGFR (BEAKER) (test 23 mL/min/1.73 sq m ESTIMATED GFR IS NOT crel=2426) ACCURATE CREATININE CLEARANCE IN PREDICTING GLOMERULAR FILTRATION RATE. ESTIMATED GFR IS NOT APPLICABLE FOR DIALYSIS PATIENTS. POCT-GLUCOSE [id number] 13:21:00 Test Item Value Reference Range Comments POC-GLUCOSE METER (BEAKER) 170 mg/dL 70-110 TESTED AT [facility] [address] [place] [address] (test yuul=2066) [facility] [address] POTASSIUM-STAT [id number] 13:20:00 Test Item Value Reference Range Comments POTASSIUM (BEAKER) (test gwdn=240) 4.2 meq/L 3.6-5.5 SODIUM NA-STAT [id number] 13:20:00 Test Item Value Reference Range Comments SODIUM (BEAKER) (test dlhw=649) 133 meq/L 135-148 HGB/HCT (H&H) - STAT [id number] 12:34:00 Test Item Value Reference Range Comments HEMOGLOBIN (BEAKER) (test xnqe=702) 10.8 g/dL 12.0-15.0 HEMATOCRIT (BEAKER) (test jyxw=526) 32.0 % 36.0-45.0 POTASSIUM-STAT [id number] 08:15:00 Test Item Value Reference Range Comments POTASSIUM (BEAKER) (test ydbc=323) 4.1 meq/L 3.6-5.5 BLOOD GAS, [id number] 08:15:00 Test Item Value Reference Range Comments PH ARTERIAL (BEAKER) (test icne=791) 7.36 7.35-7.45 PCO2 ARTERIAL (BEAKER) (test vqer=433) 47 mmHg 35-45 PO2 ARTERIAL (BEAKER) (test hzjj=465) 213 mmHg 80-90 O2 SATURATION ARTERIAL (BEAKER) (test fjps=419) 99.4 % 96.0-97.0 HCO3 ARTERIAL (BEAKER) (test xsmb=520) 26 mmol/L 21-29 BASE EXCESS ARTERIAL (BEAKER) (test xdss=891) 0.3 mmol/L -2.0-3.0 PATIENT TEMPERATURE (BEAKER) (test ukwq=7925) 37.2 C FIO2 (BEAKER) (test iqkn=4156) 70.0 % SODIUM NA-STAT [id number] 08:15:00 Test Item Value Reference Range Comments SODIUM (BEAKER) (test zocu=228) 130 meq/L 135-148 GLUCOSE-STAT [id number] 08:15:00 Test Item Value Reference Range Comments GLUCOSE RANDOM (BEAKER) (test koqv=153) 172 mg/dL 70-110 HGB/HCT (H&H) - STAT [id number] 08:15:00 Test Item Value Reference Range Comments HEMOGLOBIN (BEAKER) (test bkji=232) 8.8 g/dL 12.0-15.0 HEMATOCRIT (BEAKER) (test vnan=710) 26.0 % 36.0-45.0 BASIC METABOLIC [id number] 07:37:00 Test Item Value Reference Range Comments SODIUM (BEAKER) (test 135 meq/L 136-145 lixj=545) POTASSIUM (BEAKER) (test 4.4 meq/L 3.5-5.1 ficx=143) CHLORIDE (BEAKER) (test 100 meq/L 98-107 ilwt=789) CO2 (BEAKER) (test 23 meq/L 22-29 xxdb=604) BLOOD UREA NITROGEN 46 mg/dL 7-21 (BEAKER) (test smyf=808) CREATININE (BEAKER) (test 1.98 mg/dL 0.57-1.25 cxfh=955) GLUCOSE RANDOM (BEAKER) 188 mg/dL 70-105 (test ildb=134) CALCIUM (BEAKER) (test 8.9 mg/dL 8.4-10.2 jcae=675) EGFR (BEAKER) (test 26 mL/min/1.73 sq m ESTIMATED GFR IS NOT tlbc=2394) ACCURATE CREATININE CLEARANCE IN PREDICTING GLOMERULAR FILTRATION RATE. ESTIMATED GFR IS NOT APPLICABLE FOR DIALYSIS PATIENTS. CBC W/PLT COUNT & AUTO [id number] 07:20:00 Test Item Value Reference Range Comments WHITE BLOOD CELL COUNT (BEAKER) (test dxrt=965) 20.2 K/ L 3.5-10.5 RED BLOOD CELL COUNT (BEAKER) (test sbxy=986) 3.86 M/ L 3.93-5.22 HEMOGLOBIN (BEAKER) (test oudu=684) 9.1 GM/DL 11.2-15.7 HEMATOCRIT (BEAKER) (test fwoe=084) 29.4 % 34.1-44.9 MEAN CORPUSCULAR VOLUME (BEAKER) (test dgyp=903) 76.2 fL 79.4-94.8 MEAN CORPUSCULAR HEMOGLOBIN (BEAKER) (test 23.6 pg 25.6-32.2 nepk=389) MEAN CORPUSCULAR HEMOGLOBIN CONC (BEAKER) (test 31.0 GM/DL 32.2-35.5 lako=064) RED CELL DISTRIBUTION WIDTH (BEAKER) (test 14.9 % 11.7-14.4 hxnp=145) PLATELET COUNT (BEAKER) (test vnek=414) 343 K/CU MM 150-450 MEAN PLATELET VOLUME (BEAKER) (test rtwc=252) 9.5 fL 9.4-12.3 NUCLEATED RED BLOOD CELLS (BEAKER) (test 0 /100 WBC 0-0 mzuq=902) NEUTROPHILS RELATIVE PERCENT (BEAKER) (test 78 % ngei=303) LYMPHOCYTES RELATIVE PERCENT (BEAKER) (test 15 % owak=872) MONOCYTES RELATIVE PERCENT (BEAKER) (test 5 % qbdu=936) EOSINOPHILS RELATIVE PERCENT (BEAKER) (test 1 % wfin=146) BASOPHILS RELATIVE PERCENT (BEAKER) (test 1 % kgrn=062) NEUTROPHILS ABSOLUTE COUNT (BEAKER) (test 15.70 K/ L 1.56-6.13 xmxe=847) LYMPHOCYTES ABSOLUTE COUNT (BEAKER) (test 2.99 K/ L 1.18-3.74 voiq=084) MONOCYTES ABSOLUTE COUNT (BEAKER) (test 0.93 K/ L 0.24-0.36 txcj=219) EOSINOPHILS ABSOLUTE COUNT (BEAKER) (test 0.20 K/ L 0.04-0.36 nxyk=494) BASOPHILS ABSOLUTE COUNT (BEAKER) (test 0.12 K/ L 0.01-0.08 gkhk=282) IMMATURE GRANULOCYTES-RELATIVE PERCENT (BEAKER) 1 % 0-1 (test ifar=2500) POCT-GLUCOSE [id number] 07:03:00 Test Item Value Reference Range Comments POC-GLUCOSE METER (BEAKER) 186 mg/dL 70-110 TESTED AT [address] (test kbgd=6251) [facility] [address] B-TYPE NATRIURETIC FACTOR (BNP)2017-06-10 12:44:00 Test Item Value Reference Range Comments B-TYPE NATRIURETIC PEPTIDE (BEAKER) (test 1264 pg/mL 0-100 tjdw=077) [id number] 12:36:00 Test Item Value Reference Range Comments MAGNESIUM (BEAKER) (test stsn=006) 1.6 mg/dL 1.6-2.6 BASIC METABOLIC [id number] 12:36:00 Test Item Value Reference Range Comments SODIUM (BEAKER) (test 137 meq/L 136-145 yqsw=894) POTASSIUM (BEAKER) (test 5.4 meq/L 3.5-5.1 vcqh=043) CHLORIDE (BEAKER) (test 108 meq/L 98-107 slfu=411) CO2 (BEAKER) (test 21 meq/L 22-29 hmlo=475) BLOOD UREA NITROGEN 39 mg/dL 7-21 (BEAKER) (test asek=922) CREATININE (BEAKER) (test 1.49 mg/dL 0.57-1.25 atog=439) GLUCOSE RANDOM (BEAKER) 219 mg/dL 70-105 (test lmxg=400) CALCIUM (BEAKER) (test 8.5 mg/dL 8.4-10.2 neos=038) EGFR (BEAKER) (test 35 mL/min/1.73 sq m ESTIMATED GFR IS NOT xyne=4641) ACCURATE CREATININE CLEARANCE IN PREDICTING GLOMERULAR FILTRATION RATE. ESTIMATED GFR IS NOT APPLICABLE FOR DIALYSIS PATIENTS. POCT-GLUCOSE [id number] 12:04:00 Test Item Value Reference Range Comments POC-GLUCOSE METER (BEAKER) 274 mg/dL 70-110 TESTED AT [address] (test bikp=9095) [facility] [address] POCT-GLUCOSE [id number] 07:21:00 Test Item Value Reference Range Comments POC-GLUCOSE METER (BEAKER) 137 mg/dL 70-110 TESTED AT [facility] [address] (test jahy=4238) [facility] [address] BASIC METABOLIC [id number] 05:10:00 Test Item Value Reference Range Comments SODIUM (BEAKER) (test 137 meq/L 136-145 txfx=209) POTASSIUM (BEAKER) (test 4.1 meq/L 3.5-5.1 lsdt=751) CHLORIDE (BEAKER) (test 106 meq/L 98-107 ruif=335) CO2 (BEAKER) (test 24 meq/L 22-29 ttuw=028) BLOOD UREA NITROGEN 42 mg/dL 7-21 (BEAKER) (test hajl=749) CREATININE (BEAKER) (test 1.64 mg/dL 0.57-1.25 pdpm=566) GLUCOSE RANDOM (BEAKER) 162 mg/dL 70-105 (test aogx=817) CALCIUM (BEAKER) (test 8.1 mg/dL 8.4-10.2 fjiq=014) EGFR (BEAKER) (test 32 mL/min/1.73 sq m ESTIMATED GFR IS NOT wzew=9074) ACCURATE CREATININE CLEARANCE IN PREDICTING GLOMERULAR FILTRATION RATE. ESTIMATED GFR IS NOT APPLICABLE FOR DIALYSIS PATIENTS. CBC (HEMOGRAM ONLY)2017-06-01 04:30:00 Test Item Value Reference Range Comments WHITE BLOOD CELL COUNT (BEAKER) (test lswt=806) 6.4 K/ L 3.5-10.5 RED BLOOD CELL COUNT (BEAKER) (test hssl=266) 3.38 M/ L 3.93-5.22 HEMOGLOBIN (BEAKER) (test zikq=169) 8.7 GM/DL 11.2-15.7 HEMATOCRIT (BEAKER) (test qcmy=456) 28.2 % 34.1-44.9 MEAN CORPUSCULAR VOLUME (BEAKER) (test eetk=385) 83.4 fL 79.4-94.8 MEAN CORPUSCULAR HEMOGLOBIN (BEAKER) (test 25.7 pg 25.6-32.2 dndc=764) MEAN CORPUSCULAR HEMOGLOBIN CONC (BEAKER) (test 30.9 GM/DL 32.2-35.5 sujo=512) RED CELL DISTRIBUTION WIDTH (BEAKER) (test 15.2 % 11.7-14.4 qxxd=009) PLATELET COUNT (BEAKER) (test bczf=088) 320 K/CU MM 150-450 MEAN PLATELET VOLUME (BEAKER) (test sbrp=192) 9.5 fL 9.4-12.3 NUCLEATED RED BLOOD CELLS (BEAKER) (test 0 /100 WBC 0-0 ryys=951) POCT-GLUCOSE [id number] 21:23:00 Test Item Value Reference Range Comments POC-GLUCOSE METER (BEAKER) 240 mg/dL 70-110 TESTED AT [address] (test shxz=4085) [place] [id number] POCT-GLUCOSE [id number] 16:42:00 Test Item Value Reference Range Comments POC-GLUCOSE METER (BEAKER) 234 mg/dL 70-110 TESTED AT [address] (test vqii=9861) [place] [id number] POCT-GLUCOSE [id number] 13:22:00 Test Item Value Reference Range Comments POC-GLUCOSE METER (BEAKER) 166 mg/dL 70-110 TESTED AT [address] (test yawu=3227) [facility] [address] RAD, CHEST, 1 VIEW, NON [id number] 09:43:00Reason for exam:->s/p ACBShould this be performed [...] Ring Verified Date/Time: 05/31/2017 09: 43:30 ReadingLocation: [facility] B1 C013X Ortho Consult Reading Room POCT-GLUCOSE [id number] 06:57:00 Test Item Value Reference Range Comments POC-GLUCOSE METER (BEAKER) 136 mg/dL 70-110 TESTED AT [facility] [address] (test voqx=8662) [facility] [address] CALCIUM, [id number] 06:41:00 Test Item Value Reference Range Comments CALCIUM IONIZED (BEAKER) (test qhqc=005) 1.10 mmol/L 1.12-1.27 PH, BLOOD (BEAKER) (test fzwx=8265) 7.42 [id number] 06:17:00 Test Item Value Reference Range Comments PHOSPHORUS (BEAKER) (test cqnr=215) 3.3 mg/dL 2.3-4.7 [id number] 06:17:00 Test Item Value Reference Range Comments MAGNESIUM (BEAKER) (test zpfr=584) 1.8 mg/dL 1.6-2.6 BASIC METABOLIC [id number] 06:17:00 Test Item Value Reference Range Comments SODIUM (BEAKER) (test 131 meq/L 136-145 wrvh=061) POTASSIUM (BEAKER) (test 4.5 meq/L 3.5-5.1 fxsp=084) CHLORIDE (BEAKER) (test 103 meq/L 98-107 lrev=660) CO2 (BEAKER) (test 21 meq/L 22-29 ixny=794) BLOOD UREA NITROGEN 43 mg/dL 7-21 (BEAKER) (test dsfx=869) CREATININE (BEAKER) (test 1.74 mg/dL 0.57-1.25 trjs=989) GLUCOSE RANDOM (BEAKER) 126 mg/dL 70-105 (test xigo=920) CALCIUM (BEAKER) (test 8.1 mg/dL 8.4-10.2 jlmf=713) EGFR (BEAKER) (test 30 mL/min/1.73 sq m ESTIMATED GFR IS NOT ujes=2271) ACCURATE CREATININE CLEARANCE IN PREDICTING GLOMERULAR FILTRATION RATE. ESTIMATED GFR IS NOT APPLICABLE FOR DIALYSIS PATIENTS. CBC W/PLT COUNT & AUTO [id number] 05:07:00 Test Item Value Reference Range Comments WHITE BLOOD CELL COUNT (BEAKER) (test tfyu=855) 5.9 K/ L 3.5-10.5 RED BLOOD CELL COUNT (BEAKER) (test mhxi=598) 3.16 M/ L 3.93-5.22 HEMOGLOBIN (BEAKER) (test ofmj=286) 8.2 GM/DL 11.2-15.7 HEMATOCRIT (BEAKER) (test kzax=686) 26.6 % 34.1-44.9 MEAN CORPUSCULAR VOLUME (BEAKER) (test eyvw=789) 84.2 fL 79.4-94.8 MEAN CORPUSCULAR HEMOGLOBIN (BEAKER) (test 25.9 pg 25.6-32.2 jnyx=377) MEAN CORPUSCULAR HEMOGLOBIN CONC (BEAKER) (test 30.8 GM/DL 32.2-35.5 aqum=107) RED CELL DISTRIBUTION WIDTH (BEAKER) (test 15.1 % 11.7-14.4 ttut=118) PLATELET COUNT (BEAKER) (test dpnl=121) 320 K/CU MM 150-450 MEAN PLATELET VOLUME (BEAKER) (test cobp=217) 9.6 fL 9.4-12.3 NUCLEATED RED BLOOD CELLS (BEAKER) (test 0 /100 WBC 0-0 wygc=404) NEUTROPHILS RELATIVE PERCENT (BEAKER) (test 65 % wadw=479) LYMPHOCYTES RELATIVE PERCENT (BEAKER) (test 24 % opjt=237) MONOCYTES RELATIVE PERCENT (BEAKER) (test 8 % noqf=780) EOSINOPHILS RELATIVE PERCENT (BEAKER) (test 2 % kafy=009) BASOPHILS RELATIVE PERCENT (BEAKER) (test 1 % bcmw=754) NEUTROPHILS ABSOLUTE COUNT (BEAKER) (test 3.84 K/ L 1.56-6.13 frmj=641) LYMPHOCYTES ABSOLUTE COUNT (BEAKER) (test 1.41 K/ L 1.18-3.74 irtc=071) MONOCYTES ABSOLUTE COUNT (BEAKER) (test 0.47 K/ L 0.24-0.36 tcwd=244) EOSINOPHILS ABSOLUTE COUNT (BEAKER) (test 0.11 K/ L 0.04-0.36 iwtv=652) BASOPHILS ABSOLUTE COUNT (BEAKER) (test 0.05 K/ L 0.01-0.08 jgru=172) IMMATURE GRANULOCYTES-RELATIVE PERCENT (BEAKER) 1 % 0-1 (test nnfx=5845) POCT-GLUCOSE [id number] 20:56:00 Test Item Value Reference Range Comments POC-GLUCOSE METER (BEAKER) 196 mg/dL 70-110 TESTED AT [facility] [address] [facility] (test hnid=1338) [facility] [address] POCT-GLUCOSE [id number] 16:42:00 Test Item Value Reference Range Comments POC-GLUCOSE METER (BEAKER) 196 mg/dL 70-110 TESTED AT [facility] [address] [facility] (test sysj=4577) [facility] [address] POCT-GLUCOSE [id number] 11:45:00 Test Item Value Reference Range Comments POC-GLUCOSE METER (BEAKER) 215 mg/dL 70-110 TESTED AT [place] [id number] [facility] (test aeir=3474) [facility] [address] RAD, CHEST, 1 VIEW, NON [id number] 11:15:00Reason for exam:->s/p ACBShould this be performed at the bedside?->YesFINAL REPORT Chest one view compared to May 28, 2017 Discussion: Airspace opacities are seen in both lower lung regions, probably atelectasis. Correlate clinically for infection. I could not exclude small effusions. No pneumothorax. Upper lungs clear. Signed: Jeannette Nava Verified Date/Time: 2017 11:15:07 Reading Location: [facility] Radiology Reading Room CALCIUM, [id number] 09:21:00 Test Item Value Reference Range Comments CALCIUM IONIZED (BEAKER) (test njky=220) 1.11 mmol/L 1.12-1.27 PH, BLOOD (BEAKER) (test dcjp=2565) 7.36 BASIC METABOLIC [id number] 07:37:00 Test Item Value Reference Range Comments SODIUM (BEAKER) (test 135 meq/L 136-145 puxz=019) POTASSIUM (BEAKER) (test 4.9 meq/L 3.5-5.1 ones=517) CHLORIDE (BEAKER) (test 105 meq/L 98-107 kiwq=448) CO2 (BEAKER) (test 25 meq/L 22-29 yzna=435) BLOOD UREA NITROGEN 44 mg/dL 7-21 (BEAKER) (test kqnw=696) CREATININE (BEAKER) (test 1.76 mg/dL 0.57-1.25 buuj=989) GLUCOSE RANDOM (BEAKER) 136 mg/dL 70-105 (test ifui=838) CALCIUM (BEAKER) (test 8.2 mg/dL 8.4-10.2 vtzk=701) EGFR (BEAKER) (test 29 mL/min/1.73 sq m ESTIMATED GFR IS NOT hyux=7744) ACCURATE CREATININE CLEARANCE IN PREDICTING GLOMERULAR FILTRATION RATE. ESTIMATED GFR IS NOT APPLICABLE FOR DIALYSIS PATIENTS. [id number] 07:28:00 Test Item Value Reference Range Comments PHOSPHORUS (BEAKER) (test xdjr=125) 3.8 mg/dL 2.3-4.7 [id number] 07:28:00 Test Item Value Reference Range Comments MAGNESIUM (BEAKER) (test xgyo=592) 1.9 mg/dL 1.6-2.6 CBC W/PLT COUNT & AUTO [id number] 07:26:00 Test Item Value Reference Range Comments WHITE BLOOD CELL COUNT (BEAKER) (test yiqb=846) 6.3 K/ L 3.5-10.5 RED BLOOD CELL COUNT (BEAKER) (test ahlr=275) 3.32 M/ L 3.93-5.22 HEMOGLOBIN (BEAKER) (test weio=049) 8.5 GM/DL 11.2-15.7 HEMATOCRIT (BEAKER) (test lipj=661) 27.8 % 34.1-44.9 MEAN CORPUSCULAR VOLUME (BEAKER) (test rldo=537) 83.7 fL 79.4-94.8 MEAN CORPUSCULAR HEMOGLOBIN (BEAKER) (test 25.6 pg 25.6-32.2 fzdw=748) MEAN CORPUSCULAR HEMOGLOBIN CONC (BEAKER) (test 30.6 GM/DL 32.2-35.5 zpgg=419) RED CELL DISTRIBUTION WIDTH (BEAKER) (test 15.0 % 11.7-14.4 vift=009) PLATELET COUNT (BEAKER) (test vyfv=950) 336 K/CU MM 150-450 MEAN PLATELET VOLUME (BEAKER) (test bhso=880) 9.8 fL 9.4-12.3 NUCLEATED RED BLOOD CELLS (BEAKER) (test 0 /100 WBC 0-0 xyww=576) NEUTROPHILS RELATIVE PERCENT (BEAKER) (test 65 % goaa=538) LYMPHOCYTES RELATIVE PERCENT (BEAKER) (test 24 % xszt=313) MONOCYTES RELATIVE PERCENT (BEAKER) (test 7 % dszd=435) EOSINOPHILS RELATIVE PERCENT (BEAKER) (test 3 % xhms=256) BASOPHILS RELATIVE PERCENT (BEAKER) (test 0 % hkna=015) NEUTROPHILS ABSOLUTE COUNT (BEAKER) (test 4.13 K/ L 1.56-6.13 vrkg=598) LYMPHOCYTES ABSOLUTE COUNT (BEAKER) (test 1.50 K/ L 1.18-3.74 dkoy=272) MONOCYTES ABSOLUTE COUNT (BEAKER) (test 0.44 K/ L 0.24-0.36 dscu=316) EOSINOPHILS ABSOLUTE COUNT (BEAKER) (test 0.20 K/ L 0.04-0.36 ppfe=228) BASOPHILS ABSOLUTE COUNT (BEAKER) (test 0.02 K/ L 0.01-0.08 qjpf=982) IMMATURE GRANULOCYTES-RELATIVE PERCENT (BEAKER) 1 % 0-1 (test vtdf=8016) POCT-GLUCOSE [id number] 07:21:00 Test Item Value Reference Range Comments POC-GLUCOSE METER (BEAKER) 146 mg/dL 70-110 TESTED AT [address] (test yszl=5649) [place] [address] POCT-GLUCOSE [id number] 22:02:00 Test Item Value Reference Range Comments POC-GLUCOSE METER (BEAKER) 201 mg/dL 70-110 TESTED AT [address] (test oysv=8069) [place] [address] POCT-GLUCOSE [id number] 18:27:00 Test Item Value Reference Range Comments POC-GLUCOSE METER (BEAKER) 240 mg/dL 70-110 TESTED AT [address] (test tvxg=7264) [place] [id number] POCT-GLUCOSE [id number] 12:13:00 Test Item Value Reference Range Comments POC-GLUCOSE METER (BEAKER) 193 mg/dL 70-110 TESTED AT [address] (test uveo=9994) [place] [id number] POCT-GLUCOSE [id number] 09:02:00 Test Item Value Reference Range Comments POC-GLUCOSE METER (BEAKER) 132 mg/dL 70-110 TESTED AT [address] (test qyer=8866) [place] [address] CALCIUM, [id number] 05:42:00 Test Item Value Reference Range Comments CALCIUM IONIZED (BEAKER) (test brzz=963) 1.12 mmol/L 1.12-1.27 PH, BLOOD (BEAKER) (test vuvz=9632) 7.34 COMPREHENSIVE METABOLIC [id number] 05:33:00 Test Item Value Reference Range Comments TOTAL PROTEIN (BEAKER) 5.9 gm/dL 6.0-8.3 (test ofre=319) ALBUMIN (BEAKER) (test 2.7 g/dL 3.5-5.0 vxqp=6638) ALKALINE PHOSPHATASE 130 U/L 40-150 (BEAKER) (test mufe=929) BILIRUBIN TOTAL (BEAKER) 0.3 mg/dL 0.2-1.2 (test cbvu=082) SODIUM (BEAKER) (test 135 meq/L 136-145 thmm=809) POTASSIUM (BEAKER) (test 4.7 meq/L 3.5-5.1 yjcb=913) CHLORIDE (BEAKER) (test 105 meq/L 98-107 rcbl=452) CO2 (BEAKER) (test 24 meq/L 22-29 pyfu=387) BLOOD UREA NITROGEN 42 mg/dL 7-21 (BEAKER) (test sscj=628) CREATININE (BEAKER) (test 1.78 mg/dL 0.57-1.25 vvnh=184) GLUCOSE RANDOM (BEAKER) 129 mg/dL 70-105 (test ercg=831) CALCIUM (BEAKER) (test 8.5 mg/dL 8.4-10.2 ijmb=280) AST (SGOT) (BEAKER) (test 23 U/L 5-34 kcha=087) ALT (SGPT) (BEAKER) (test 15 U/L 6-55 otlf=275) EGFR (BEAKER) (test 29 mL/min/1.73 sq m ESTIMATED GFR IS NOT tjtc=9492) ACCURATE CREATININE CLEARANCE IN PREDICTING GLOMERULAR FILTRATION RATE. ESTIMATED GFR IS NOT APPLICABLE FOR DIALYSIS PATIENTS. [id number] 05:32:00 Test Item Value Reference Range Comments PHOSPHORUS (BEAKER) (test nimd=118) 3.6 mg/dL 2.3-4.7 [id number] 05:32:00 Test Item Value Reference Range Comments MAGNESIUM (BEAKER) (test velj=133) 2.2 mg/dL 1.6-2.6 CBC W/PLT COUNT & AUTO [id number] 05:01:00 Test Item Value Reference Range Comments WHITE BLOOD CELL COUNT (BEAKER) (test tmcj=841) 6.4 K/ L 3.5-10.5 RED BLOOD CELL COUNT (BEAKER) (test vvcv=276) 3.43 M/ L 3.93-5.22 HEMOGLOBIN (BEAKER) (test zjrq=101) 8.9 GM/DL 11.2-15.7 HEMATOCRIT (BEAKER) (test irzo=898) 28.9 % 34.1-44.9 MEAN CORPUSCULAR VOLUME (BEAKER) (test munw=513) 84.3 fL 79.4-94.8 MEAN CORPUSCULAR HEMOGLOBIN (BEAKER) (test 25.9 pg 25.6-32.2 hywv=022) MEAN CORPUSCULAR HEMOGLOBIN CONC (BEAKER) (test 30.8 GM/DL 32.2-35.5 ieec=201) RED CELL DISTRIBUTION WIDTH (BEAKER) (test 15.0 % 11.7-14.4 xdcv=626) PLATELET COUNT (BEAKER) (test zjuu=205) 324 K/CU MM 150-450 MEAN PLATELET VOLUME (BEAKER) (test snaf=568) 9.3 fL 9.4-12.3 NUCLEATED RED BLOOD CELLS (BEAKER) (test 0 /100 WBC 0-0 fkll=554) NEUTROPHILS RELATIVE PERCENT (BEAKER) (test 62 % gbll=020) LYMPHOCYTES RELATIVE PERCENT (BEAKER) (test 25 % gcon=659) MONOCYTES RELATIVE PERCENT (BEAKER) (test 8 % bhph=758) EOSINOPHILS RELATIVE PERCENT (BEAKER) (test 4 % ztes=927) BASOPHILS RELATIVE PERCENT (BEAKER) (test 1 % lcnz=795) NEUTROPHILS ABSOLUTE COUNT (BEAKER) (test 3.93 K/ L 1.56-6.13 ogqo=565) LYMPHOCYTES ABSOLUTE COUNT (BEAKER) (test 1.60 K/ L 1.18-3.74 nena=510) MONOCYTES ABSOLUTE COUNT (BEAKER) (test 0.51 K/ L 0.24-0.36 wzlr=543) EOSINOPHILS ABSOLUTE COUNT (BEAKER) (test 0.25 K/ L 0.04-0.36 sezw=454) BASOPHILS ABSOLUTE COUNT (BEAKER) (test 0.03 K/ L 0.01-0.08 qrww=414) IMMATURE GRANULOCYTES-RELATIVE PERCENT (BEAKER) 1 % 0-1 (test bgoo=1404) POCT-GLUCOSE [id number] 21:04:00 Test Item Value Reference Range Comments POC-GLUCOSE METER (BEAKER) 165 mg/dL 70-110 TESTED AT [address] (test qdfs=0444) [facility] [address] POCT-GLUCOSE [id number] 17:30:00 Test Item Value Reference Range Comments POC-GLUCOSE METER (BEAKER) 236 mg/dL 70-110 TESTED AT [address] (test tmxj=1072) [facility] [address] RAD, CHEST, 1 VIEW, NON [id number] 13:53:00Reason for exam:->assess for ill-defined opacityShould this [...] Callaway Verified Date/Time: 05/28/2017 13:53:03 Reading Location: [address] Radiology Reading Room Electronically signed by: LUIS ALBERTO CALLAWAY M.D. on 01:53 PMPOCT-GLUCOSE [id number] 11:53:00 Test Item Value Reference Range Comments POC-GLUCOSE METER (BEAKER) 215 mg/dL 70-110 TESTED AT [address] (test qjte=7954) [facility] [address] POCT-GLUCOSE [id number] 08:32:00 Test Item Value Reference Range Comments POC-GLUCOSE METER (BEAKER) 168 mg/dL 70-110 TESTED AT [address] (test wvam=3431) [facility] [address] CALCIUM, [id number] 05:44:00 Test Item Value Reference Range Comments CALCIUM IONIZED (BEAKER) (test pjhh=377) 1.09 mmol/L 1.12-1.27 PH, BLOOD (BEAKER) (test emrs=7733) 7.38 [id number] 05:44:00 Test Item Value Reference Range Comments PHOSPHORUS (BEAKER) (test zfcx=909) 3.5 mg/dL 2.3-4.7 [id number] 05:44:00 Test Item Value Reference Range Comments MAGNESIUM (BEAKER) (test hvef=219) 1.9 mg/dL 1.6-2.6 BASIC METABOLIC [id number] 05:44:00 Test Item Value Reference Range Comments SODIUM (BEAKER) (test 137 meq/L 136-145 bjrs=918) POTASSIUM (BEAKER) (test 4.5 meq/L 3.5-5.1 dytu=702) CHLORIDE (BEAKER) (test 108 meq/L 98-107 uimn=393) CO2 (BEAKER) (test 23 meq/L 22-29 lwcu=432) BLOOD UREA NITROGEN 41 mg/dL 7-21 (BEAKER) (test rgfk=815) CREATININE (BEAKER) (test 1.41 mg/dL 0.57-1.25 qoxk=204) GLUCOSE RANDOM (BEAKER) 113 mg/dL 70-105 (test pdxk=077) CALCIUM (BEAKER) (test 8.1 mg/dL 8.4-10.2 kcri=075) EGFR (BEAKER) (test 38 mL/min/1.73 sq m ESTIMATED GFR IS NOT rmyx=1634) ACCURATE CREATININE CLEARANCE IN PREDICTING GLOMERULAR FILTRATION RATE. ESTIMATED GFR IS NOT APPLICABLE FOR DIALYSIS PATIENTS. CBC W/PLT COUNT & AUTO [id number] 05:05:00 Test Item Value Reference Range Comments WHITE BLOOD CELL COUNT (BEAKER) (test nuwu=863) 6.3 K/ L 3.5-10.5 RED BLOOD CELL COUNT (BEAKER) (test kjtm=862) 3.40 M/ L 3.93-5.22 HEMOGLOBIN (BEAKER) (test dqov=312) 8.8 GM/DL 11.2-15.7 HEMATOCRIT (BEAKER) (test rluw=709) 29.0 % 34.1-44.9 MEAN CORPUSCULAR VOLUME (BEAKER) (test ogsq=231) 85.3 fL 79.4-94.8 MEAN CORPUSCULAR HEMOGLOBIN (BEAKER) (test 25.9 pg 25.6-32.2 kstx=452) MEAN CORPUSCULAR HEMOGLOBIN CONC (BEAKER) (test 30.3 GM/DL 32.2-35.5 lbhe=231) RED CELL DISTRIBUTION WIDTH (BEAKER) (test 14.9 % 11.7-14.4 pgiw=834) PLATELET COUNT (BEAKER) (test gjde=981) 282 K/CU MM 150-450 MEAN PLATELET VOLUME (BEAKER) (test pvve=825) 9.5 fL 9.4-12.3 NUCLEATED RED BLOOD CELLS (BEAKER) (test 0 /100 WBC 0-0 wwxy=283) NEUTROPHILS RELATIVE PERCENT (BEAKER) (test 59 % drnf=365) LYMPHOCYTES RELATIVE PERCENT (BEAKER) (test 28 % ozfx=202) MONOCYTES RELATIVE PERCENT (BEAKER) (test 7 % xjrx=573) EOSINOPHILS RELATIVE PERCENT (BEAKER) (test 4 % djgw=430) BASOPHILS RELATIVE PERCENT (BEAKER) (test 1 % zxvg=533) NEUTROPHILS ABSOLUTE COUNT (BEAKER) (test 3.75 K/ L 1.56-6.13 oeyb=826) LYMPHOCYTES ABSOLUTE COUNT (BEAKER) (test 1.80 K/ L 1.18-3.74 fyup=326) MONOCYTES ABSOLUTE COUNT (BEAKER) (test 0.45 K/ L 0.24-0.36 jhlx=623) EOSINOPHILS ABSOLUTE COUNT (BEAKER) (test 0.25 K/ L 0.04-0.36 vyka=650) BASOPHILS ABSOLUTE COUNT (BEAKER) (test 0.05 K/ L 0.01-0.08 vopo=070) IMMATURE GRANULOCYTES-RELATIVE PERCENT (BEAKER) 1 % 0-1 (test dlhe=8252) POCT-GLUCOSE [id number] 21:03:00 Test Item Value Reference Range Comments POC-GLUCOSE METER (BEAKER) 173 mg/dL 70-110 TESTED AT [address] (test ynqy=0171) [place] [id number] 18:15:00 Test Item Value Reference Range Comments ACTIVATED CLOTTING TIME 147 sec TESTED AT [address] (BEAKER) (test czro=033) [place] [address] [id number] 18:15:00 Test Item Value Reference Range Comments ACTIVATED CLOTTING TIME 246 sec TESTED AT [place] [address] [address] (BEAKER) (test nkmv=436) [facility] [address] POCT-GLUCOSE [id number] 12:39:00 Test Item Value Reference Range Comments POC-GLUCOSE METER (BEAKER) 219 mg/dL 70-110 TESTED AT [address] (test srix=7933) [facility] [address] RAD, CHEST, 1 VIEW, NON [id number] 10:11:00Reason for exam:->pl effusionShould this be performed at the bedside?->YesFINAL REPORT Chest one view compared to May 26 Discussion: There is cardiac prominence. Upper lungs are clear. Ill-defined basilar densities are similar probably atelectasis. No gross effusion or pneumothorax with bilateral chest tubes in place. Signed: Jeannette Nava Verified Date/Time: 2017 10:11:44 Reading Location: [facility] Radiology Reading Room POCT- GLUCOSE [id number] 07:05:00 Test Item Value Reference Range Comments POC-GLUCOSE METER (BEAKER) 167 mg/dL 70-110 TESTED AT [address] (test sdlj=3373) [facility] [address] CALCIUM, [id number] 06:20:00 Test Item Value Reference Range Comments CALCIUM IONIZED (BEAKER) (test isxn=796) 0.98 mmol/L 1.12-1.27 PH, BLOOD (BEAKER) (test lede=5169) 7.50 [id number] 04:56:00 Test Item Value Reference Range Comments PHOSPHORUS (BEAKER) (test tnwt=118) 2.6 mg/dL 2.3-4.7 [id number] 04:56:00 Test Item Value Reference Range Comments MAGNESIUM (BEAKER) (test oepo=328) 2.0 mg/dL 1.6-2.6 BASIC METABOLIC [id number] 04:56:00 Test Item Value Reference Range Comments SODIUM (BEAKER) (test 135 meq/L 136-145 shcy=454) POTASSIUM (BEAKER) (test 4.5 meq/L 3.5-5.1 pcrn=019) CHLORIDE (BEAKER) (test 105 meq/L 98-107 rzmi=576) CO2 (BEAKER) (test 22 meq/L 22-29 eqsl=883) BLOOD UREA NITROGEN 47 mg/dL 7-21 (BEAKER) (test ckkt=000) CREATININE (BEAKER) (test 1.44 mg/dL 0.57-1.25 balp=770) GLUCOSE RANDOM (BEAKER) 177 mg/dL 70-105 (test xvtu=203) CALCIUM (BEAKER) (test 8.0 mg/dL 8.4-10.2 ifou=025) EGFR (BEAKER) (test 37 mL/min/1.73 sq m ESTIMATED GFR IS NOT mowk=4289) ACCURATE CREATININE CLEARANCE IN PREDICTING GLOMERULAR FILTRATION RATE. ESTIMATED GFR IS NOT APPLICABLE FOR DIALYSIS PATIENTS. CBC W/PLT COUNT & AUTO [id number] 04:36:00 Test Item Value Reference Range Comments WHITE BLOOD CELL COUNT (BEAKER) (test cmsl=827) 6.1 K/ L 3.5-10.5 RED BLOOD CELL COUNT (BEAKER) (test tvmy=844) 3.35 M/ L 3.93-5.22 HEMOGLOBIN (BEAKER) (test qwmz=555) 8.6 GM/DL 11.2-15.7 HEMATOCRIT (BEAKER) (test adtm=720) 28.0 % 34.1-44.9 MEAN CORPUSCULAR VOLUME (BEAKER) (test ttly=827) 83.6 fL 79.4-94.8 MEAN CORPUSCULAR HEMOGLOBIN (BEAKER) (test 25.7 pg 25.6-32.2 mezs=851) MEAN CORPUSCULAR HEMOGLOBIN CONC (BEAKER) (test 30.7 GM/DL 32.2-35.5 bsvv=130) RED CELL DISTRIBUTION WIDTH (BEAKER) (test 14.7 % 11.7-14.4 wsja=799) PLATELET COUNT (BEAKER) (test ejkq=892) 280 K/CU MM 150-450 MEAN PLATELET VOLUME (BEAKER) (test xkjh=873) 9.9 fL 9.4-12.3 NUCLEATED RED BLOOD CELLS (BEAKER) (test 0 /100 WBC 0-0 mcmr=157) NEUTROPHILS RELATIVE PERCENT (BEAKER) (test 65 % tpth=664) LYMPHOCYTES RELATIVE PERCENT (BEAKER) (test 23 % letc=749) MONOCYTES RELATIVE PERCENT (BEAKER) (test 7 % caui=043) EOSINOPHILS RELATIVE PERCENT (BEAKER) (test 4 % dlit=429) BASOPHILS RELATIVE PERCENT (BEAKER) (test 1 % tcsr=516) NEUTROPHILS ABSOLUTE COUNT (BEAKER) (test 3.97 K/ L 1.56-6.13 ywhx=035) LYMPHOCYTES ABSOLUTE COUNT (BEAKER) (test 1.41 K/ L 1.18-3.74 qslr=453) MONOCYTES ABSOLUTE COUNT (BEAKER) (test 0.44 K/ L 0.24-0.36 utoc=410) EOSINOPHILS ABSOLUTE COUNT (BEAKER) (test 0.22 K/ L 0.04-0.36 abel=152) BASOPHILS ABSOLUTE COUNT (BEAKER) (test 0.05 K/ L 0.01-0.08 pyba=909) IMMATURE GRANULOCYTES-RELATIVE PERCENT (BEAKER) 1 % 0-1 (test rmfb=1668) POCT-GLUCOSE [id number] 21:29:00 Test Item Value Reference Range Comments POC-GLUCOSE METER (BEAKER) 147 mg/dL 70-110 TESTED AT [address] (test xhka=6627) [place] [address] POCT-GLUCOSE [id number] 17:51:00 Test Item Value Reference Range Comments POC-GLUCOSE METER (BEAKER) 224 mg/dL 70-110 TESTED AT [address] (test phzg=5210) [place] [address] POCT-GLUCOSE [id number] 13:53:00 Test Item Value Reference Range Comments POC-GLUCOSE METER (BEAKER) 182 mg/dL 70-110 TESTED AT [address] (test kzwj=7760) [place] [id number] RAD, CHEST, 1 VIEW, NON [id number] 08:44:00Reason for exam:->pl effusionShould this be performed [...] Verified Date/Time : 05/26/2017 08:44:25 Reading Location: [address] Radiology Reading Room POCT- GLUCOSE [id number] 07:43:00 Test Item Value Reference Range Comments POC-GLUCOSE METER (BEAKER) 113 mg/dL 70-110 TESTED AT [facility] [address] [facility] (test zqpy=8622) [facility] [address] CALCIUM, [id number] 06:31:00 Test Item Value Reference Range Comments CALCIUM IONIZED (BEAKER) (test xoxu=773) 1.07 mmol/L 1.12-1.27 PH, BLOOD (BEAKER) (test pgzc=0648) 7.38 [id number] 04:51:00 Test Item Value Reference Range Comments PHOSPHORUS (BEAKER) (test hadj=350) 3.2 mg/dL 2.3-4.7 [id number] 04:51:00 Test Item Value Reference Range Comments MAGNESIUM (BEAKER) (test yemx=708) 2.1 mg/dL 1.6-2.6 BASIC METABOLIC [id number] 04:51:00 Test Item Value Reference Range Comments SODIUM (BEAKER) (test 139 meq/L 136-145 kwgc=135) POTASSIUM (BEAKER) (test 4.1 meq/L 3.5-5.1 afxk=075) CHLORIDE (BEAKER) (test 106 meq/L 98-107 gupl=390) CO2 (BEAKER) (test 24 meq/L 22-29 nfoe=812) BLOOD UREA NITROGEN 52 mg/dL 7-21 (BEAKER) (test epjx=376) CREATININE (BEAKER) (test 1.52 mg/dL 0.57-1.25 oayl=173) GLUCOSE RANDOM (BEAKER) 108 mg/dL 70-105 (test bzin=877) CALCIUM (BEAKER) (test 8.4 mg/dL 8.4-10.2 vxsr=866) EGFR (BEAKER) (test 35 mL/min/1.73 sq m ESTIMATED GFR IS NOT ihuf=3797) ACCURATE CREATININE CLEARANCE IN PREDICTING GLOMERULAR FILTRATION RATE. ESTIMATED GFR IS NOT APPLICABLE FOR DIALYSIS PATIENTS. CBC W/PLT COUNT & AUTO [id number] 04:27:00 Test Item Value Reference Range Comments WHITE BLOOD CELL COUNT (BEAKER) (test uwfc=082) 7.2 K/ L 3.5-10.5 RED BLOOD CELL COUNT (BEAKER) (test hxlj=970) 3.53 M/ L 3.93-5.22 HEMOGLOBIN (BEAKER) (test tslr=601) 9.1 GM/DL 11.2-15.7 HEMATOCRIT (BEAKER) (test gmac=678) 29.5 % 34.1-44.9 MEAN CORPUSCULAR VOLUME (BEAKER) (test nkkn=950) 83.6 fL 79.4-94.8 MEAN CORPUSCULAR HEMOGLOBIN (BEAKER) (test 25.8 pg 25.6-32.2 noym=998) MEAN CORPUSCULAR HEMOGLOBIN CONC (BEAKER) (test 30.8 GM/DL 32.2-35.5 oija=942) RED CELL DISTRIBUTION WIDTH (BEAKER) (test 14.6 % 11.7-14.4 jbvu=489) PLATELET COUNT (BEAKER) (test mbcs=327) 296 K/CU MM 150-450 MEAN PLATELET VOLUME (BEAKER) (test mfbu=024) 9.5 fL 9.4-12.3 NUCLEATED RED BLOOD CELLS (BEAKER) (test 0 /100 WBC 0-0 hhvp=283) NEUTROPHILS RELATIVE PERCENT (BEAKER) (test 67 % mser=337) LYMPHOCYTES RELATIVE PERCENT (BEAKER) (test 21 % gchm=561) MONOCYTES RELATIVE PERCENT (BEAKER) (test 7 % wfpp=010) EOSINOPHILS RELATIVE PERCENT (BEAKER) (test 4 % nmsd=483) BASOPHILS RELATIVE PERCENT (BEAKER) (test 1 % ppzf=312) NEUTROPHILS ABSOLUTE COUNT (BEAKER) (test 4.79 K/ L 1.56-6.13 ozwb=215) LYMPHOCYTES ABSOLUTE COUNT (BEAKER) (test 1.49 K/ L 1.18-3.74 sagl=074) MONOCYTES ABSOLUTE COUNT (BEAKER) (test 0.50 K/ L 0.24-0.36 nele=641) EOSINOPHILS ABSOLUTE COUNT (BEAKER) (test 0.30 K/ L 0.04-0.36 luac=501) BASOPHILS ABSOLUTE COUNT (BEAKER) (test 0.05 K/ L 0.01-0.08 ghyh=925) IMMATURE GRANULOCYTES-RELATIVE PERCENT (BEAKER) 0 % 0-1 (test seao=7500) POCT-GLUCOSE [id number] 23:48:00 Test Item Value Reference Range Comments POC-GLUCOSE METER (BEAKER) 123 mg/dL 70-110 TESTED AT [address] (test oubm=6617) [place] [address] POCT-GLUCOSE [id number] 16:46:00 Test Item Value Reference Range Comments POC-GLUCOSE METER (BEAKER) 178 mg/dL 70-110 TESTED AT [address] (test ruqn=8701) [place] [address] BASIC METABOLIC [id number] 05:53:00 Test Item Value Reference Range Comments SODIUM (BEAKER) (test 139 meq/L 136-145 ftzh=784) POTASSIUM (BEAKER) (test 3.9 meq/L 3.5-5.1 rwcd=017) CHLORIDE (BEAKER) (test 106 meq/L 98-107 vxmy=506) CO2 (BEAKER) (test 23 meq/L 22-29 dnac=216) BLOOD UREA NITROGEN 62 mg/dL 7-21 (BEAKER) (test fhza=091) CREATININE (BEAKER) (test 2.05 mg/dL 0.57-1.25 pyhp=178) GLUCOSE RANDOM (BEAKER) 87 mg/dL 70-105 (test frwp=782) CALCIUM (BEAKER) (test 7.9 mg/dL 8.4-10.2 pngi=501) EGFR (BEAKER) (test 25 mL/min/1.73 sq m ESTIMATED GFR IS NOT alwo=1673) ACCURATE CREATININE CLEARANCE IN PREDICTING GLOMERULAR FILTRATION RATE. ESTIMATED GFR IS NOT APPLICABLE FOR DIALYSIS PATIENTS. [id number] 05:52:00 Test Item Value Reference Range Comments PHOSPHORUS (BEAKER) (test urov=454) 4.2 mg/dL 2.3-4.7 [id number] 05:52:00 Test Item Value Reference Range Comments MAGNESIUM (BEAKER) (test azzw=654) 2.3 mg/dL 1.6-2.6 CALCIUM, [id number] 05:27:00 Test Item Value Reference Range Comments CALCIUM IONIZED (BEAKER) (test lvir=073) 1.12 mmol/L 1.12-1.27 PH, BLOOD (BEAKER) (test znee=1704) 7.38 CBC W/PLT COUNT & AUTO [id number] 05:07:00 Test Item Value Reference Range Comments WHITE BLOOD CELL COUNT (BEAKER) (test nkpy=367) 8.4 K/ L 3.5-10.5 RED BLOOD CELL COUNT (BEAKER) (test ikcy=500) 3.16 M/ L 3.93-5.22 HEMOGLOBIN (BEAKER) (test wgzr=190) 8.2 GM/DL 11.2-15.7 HEMATOCRIT (BEAKER) (test ecpp=195) 26.5 % 34.1-44.9 MEAN CORPUSCULAR VOLUME (BEAKER) (test xqbq=953) 83.9 fL 79.4-94.8 MEAN CORPUSCULAR HEMOGLOBIN (BEAKER) (test 25.9 pg 25.6-32.2 jgdd=823) MEAN CORPUSCULAR HEMOGLOBIN CONC (BEAKER) (test 30.9 GM/DL 32.2-35.5 zpkc=009) RED CELL DISTRIBUTION WIDTH (BEAKER) (test 14.6 % 11.7-14.4 riog=406) PLATELET COUNT (BEAKER) (test wyie=840) 256 K/CU MM 150-450 MEAN PLATELET VOLUME (BEAKER) (test bzsn=029) 10.0 fL 9.4-12.3 NUCLEATED RED BLOOD CELLS (BEAKER) (test 0 /100 WBC 0-0 movm=768) NEUTROPHILS RELATIVE PERCENT (BEAKER) (test 63 % mwym=993) LYMPHOCYTES RELATIVE PERCENT (BEAKER) (test 25 % ealq=017) MONOCYTES RELATIVE PERCENT (BEAKER) (test 8 % zsil=199) EOSINOPHILS RELATIVE PERCENT (BEAKER) (test 3 % tlsc=209) BASOPHILS RELATIVE PERCENT (BEAKER) (test 1 % pmhy=350) NEUTROPHILS ABSOLUTE COUNT (BEAKER) (test 5.27 K/ L 1.56-6.13 wsci=318) LYMPHOCYTES ABSOLUTE COUNT (BEAKER) (test 2.09 K/ L 1.18-3.74 qbnh=532) MONOCYTES ABSOLUTE COUNT (BEAKER) (test 0.63 K/ L 0.24-0.36 mbvu=962) EOSINOPHILS ABSOLUTE COUNT (BEAKER) (test 0.27 K/ L 0.04-0.36 jrae=867) BASOPHILS ABSOLUTE COUNT (BEAKER) (test 0.05 K/ L 0.01-0.08 afji=656) IMMATURE GRANULOCYTES-RELATIVE PERCENT (BEAKER) 1 % 0-1 (test crof=6645) RAD, CHEST, 1 VIEW, NON [id number] 04:45:00Reason for exam:->pl effusionShould this be performed [...] MDReport Verified Date/Time: 05/25/2017 04:45:08 Reading Location: [address] Body Reading Room POCT-GLUCOSE [id number] 01:52:00 Test Item Value Reference Range Comments POC-GLUCOSE METER (BEAKER) 126 mg/dL 70-110 TESTED AT [address] (test gdhf=2504) [facility] [address] POCT-GLUCOSE [id number] 13:07:00 Test Item Value Reference Range Comments POC-GLUCOSE METER (BEAKER) 118 mg/dL 70-110 TESTED AT [place] [id number] [facility] (test stwa=9759) [facility] [address] BRONCHIAL CULTURE + GRAM [id number] 11:35:00 Test Item Value Reference Range Comments CULTURE (BEAKER) (test ttbu=6698) Amikacin (test code=1) Susceptible 0-16 , Resistant [...] >40 code=47) CULTURE (BEAKER) (test 4+ Bordetella xdgb=3379) bronchiseptica GRAM STAIN RESULT 1+ WBCs (BEAKER) (test fhtm=6456) GRAM STAIN RESULT <1+ gram positive (BEAKER) (test cocci in pairs aayn=091150) GRAM STAIN RESULT 1+ gram variable (BEAKER) (test rods qysy=329923) 1+ Normal respiratory todd presentRAD, CHEST, 1 VIEW, NON [id number] 06:50: 00Reason for exam:->pl effusionShould this be [...] MDReport Verified Date/Time: 05/24/2017 06:50:08 Reading Location: [address] Body Reading Room BASIC METABOLIC [id number] 04: 19:00 Test Item Value Reference Range Comments SODIUM (BEAKER) (test 136 meq/L 136-145 dfuw=678) POTASSIUM (BEAKER) (test 4.3 meq/L 3.5-5.1 tpuv=088) CHLORIDE (BEAKER) (test 104 meq/L 98-107 vsra=710) CO2 (BEAKER) (test 20 meq/L 22-29 lues=161) BLOOD UREA NITROGEN 61 mg/dL 7-21 (BEAKER) (test sbxo=618) CREATININE (BEAKER) (test 2.69 mg/dL 0.57-1.25 hypl=059) GLUCOSE RANDOM (BEAKER) 107 mg/dL 70-105 (test xcxs=598) CALCIUM (BEAKER) (test 7.8 mg/dL 8.4-10.2 yztz=779) EGFR (BEAKER) (test 18 mL/min/1.73 sq m ESTIMATED GFR IS NOT oplw=7785) ACCURATE CREATININE CLEARANCE IN PREDICTING GLOMERULAR FILTRATION RATE. ESTIMATED GFR IS NOT APPLICABLE FOR DIALYSIS PATIENTS. CALCIUM, [id number] 04:16:00 Test Item Value Reference Range Comments CALCIUM IONIZED (BEAKER) (test gqes=655) 1.06 mmol/L 1.12-1.27 PH, BLOOD (BEAKER) (test ycwf=2970) 7.40 [id number] 04:11:00 Test Item Value Reference Range Comments PHOSPHORUS (BEAKER) (test cmxf=041) 6.0 mg/dL 2.3-4.7 [id number] 04:11:00 Test Item Value Reference Range Comments MAGNESIUM (BEAKER) (test nrvn=126) 2.4 mg/dL 1.6-2.6 CBC W/PLT COUNT & AUTO [id number] 03:50:00 Test Item Value Reference Range Comments WHITE BLOOD CELL COUNT (BEAKER) (test msib=663) 9.5 K/ L 3.5-10.5 RED BLOOD CELL COUNT (BEAKER) (test ezxd=350) 3.06 M/ L 3.93-5.22 HEMOGLOBIN (BEAKER) (test tnva=723) 7.9 GM/DL 11.2-15.7 HEMATOCRIT (BEAKER) (test uadz=693) 25.5 % 34.1-44.9 MEAN CORPUSCULAR VOLUME (BEAKER) (test crqx=426) 83.3 fL 79.4-94.8 MEAN CORPUSCULAR HEMOGLOBIN (BEAKER) (test 25.8 pg 25.6-32.2 dccc=266) MEAN CORPUSCULAR HEMOGLOBIN CONC (BEAKER) (test 31.0 GM/DL 32.2-35.5 gpfh=921) RED CELL DISTRIBUTION WIDTH (BEAKER) (test 15.1 % 11.7-14.4 ehme=089) PLATELET COUNT (BEAKER) (test pfht=796) 224 K/CU MM 150-450 MEAN PLATELET VOLUME (BEAKER) (test atpi=897) 10.5 fL 9.4-12.3 NUCLEATED RED BLOOD CELLS (BEAKER) (test 0 /100 WBC 0-0 qnvy=618) NEUTROPHILS RELATIVE PERCENT (BEAKER) (test 70 % eoxj=635) LYMPHOCYTES RELATIVE PERCENT (BEAKER) (test 21 % cgmv=910) MONOCYTES RELATIVE PERCENT (BEAKER) (test 7 % hiqe=767) EOSINOPHILS RELATIVE PERCENT (BEAKER) (test 2 % zkzj=479) BASOPHILS RELATIVE PERCENT (BEAKER) (test 0 % hqiu=682) NEUTROPHILS ABSOLUTE COUNT (BEAKER) (test 6.60 K/ L 1.56-6.13 wsmd=987) LYMPHOCYTES ABSOLUTE COUNT (BEAKER) (test 2.02 K/ L 1.18-3.74 twtz=315) MONOCYTES ABSOLUTE COUNT (BEAKER) (test 0.63 K/ L 0.24-0.36 zyzx=705) EOSINOPHILS ABSOLUTE COUNT (BEAKER) (test 0.15 K/ L 0.04-0.36 semy=549) BASOPHILS ABSOLUTE COUNT (BEAKER) (test 0.04 K/ L 0.01-0.08 rwkc=887) IMMATURE GRANULOCYTES-RELATIVE PERCENT (BEAKER) 0 % 0-1 (test msqd=8955) POCT-GLUCOSE [id number] 20:45:00 Test Item Value Reference Range Comments POC-GLUCOSE METER (BEAKER) 143 mg/dL 70-110 TESTED AT [address] (test jhtr=9477) [facility] [address] POCT-GLUCOSE [id number] 20:45:00 Test Item Value Reference Range Comments POC-GLUCOSE METER (BEAKER) 145 mg/dL 70-110 [address] (test mwiy=7917) [facility] [address] [id number] 13:37:00 Test Item Value Reference Range Comments PREALBUMIN (BEAKER) (test 10 mg/dL 14-45 Specimen slightly hemolyzed oeze=741) OXYGEN SATURATION, [id number] 12:31:00 Test Item Value Reference Range Comments O2 SATURATION (MEASURED) (BEAKER) (test iiey=4528) 94.5 % [id number] 11:02:00 Test Item Value Reference Range Comments PREALBUMIN (BEAKER) (test mtcy=663) 10 mg/dL 14-45 RAD, CHEST, 1 VIEW, NON [id number] 05:14:00while patient is intubated or has chest [...] MDReport Verified Date/Time: 05/23/2017 05:14:04 Reading Location: [address] Body Reading Room BASIC METABOLIC [id number] 03:48:00 Test Item Value Reference Range Comments SODIUM (BEAKER) (test 138 meq/L 136-145 akfj=271) POTASSIUM (BEAKER) (test 4.6 meq/L 3.5-5.1 Specimen slightly zzjm=368) hemolyzed CHLORIDE (BEAKER) (test 106 meq/L 98-107 xhkd=138) CO2 (BEAKER) (test 20 meq/L 22-29 fnbt=134) BLOOD UREA NITROGEN 54 mg/dL 7-21 (BEAKER) (test sbbh=785) CREATININE (BEAKER) (test 2.66 mg/dL 0.57-1.25 Specimen slightly uonp=817) hemolyzed GLUCOSE RANDOM (BEAKER) 113 mg/dL 70-105 (test rbqk=209) CALCIUM (BEAKER) (test 7.9 mg/dL 8.4-10.2 rhmf=729) EGFR (BEAKER) (test 18 mL/min/1.73 sq m ESTIMATED GFR IS NOT pjut=4488) ACCURATE CREATININE CLEARANCE IN PREDICTING GLOMERULAR FILTRATION RATE. ESTIMATED GFR IS NOT APPLICABLE FOR DIALYSIS PATIENTS. [id number] 03:46:00 Test Item Value Reference Range Comments MAGNESIUM (BEAKER) (test 2.4 mg/dL 1.6-2.6 Specimen slightly hemolyzed zqoi=043) [id number] 03:46:00 Test Item Value Reference Range Comments PHOSPHORUS (BEAKER) (test 6.5 mg/dL 2.3-4.7 Specimen slightly hemolyzed suwt=646) CBC W/PLT COUNT & AUTO [id number] 03:26:00 Test Item Value Reference Range Comments WHITE BLOOD CELL COUNT (BEAKER) (test lgwb=059) 10.8 K/ L 3.5-10.5 RED BLOOD CELL COUNT (BEAKER) (test bnsy=408) 3.16 M/ L 3.93-5.22 HEMOGLOBIN (BEAKER) (test bsjp=933) 8.2 GM/DL 11.2-15.7 HEMATOCRIT (BEAKER) (test lewn=499) 26.6 % 34.1-44.9 MEAN CORPUSCULAR VOLUME (BEAKER) (test qxff=669) 84.2 fL 79.4-94.8 MEAN CORPUSCULAR HEMOGLOBIN (BEAKER) (test 25.9 pg 25.6-32.2 arhb=783) MEAN CORPUSCULAR HEMOGLOBIN CONC (BEAKER) (test 30.8 GM/DL 32.2-35.5 arjg=621) RED CELL DISTRIBUTION WIDTH (BEAKER) (test 15.0 % 11.7-14.4 oxwo=964) PLATELET COUNT (BEAKER) (test jkcm=307) 195 K/CU MM 150-450 MEAN PLATELET VOLUME (BEAKER) (test vfei=738) 10.6 fL 9.4-12.3 NUCLEATED RED BLOOD CELLS (BEAKER) (test 0 /100 WBC 0-0 yibv=406) NEUTROPHILS RELATIVE PERCENT (BEAKER) (test 73 % mapz=140) LYMPHOCYTES RELATIVE PERCENT (BEAKER) (test 18 % bhih=651) MONOCYTES RELATIVE PERCENT (BEAKER) (test 6 % xxjh=481) EOSINOPHILS RELATIVE PERCENT (BEAKER) (test 2 % nibf=161) BASOPHILS RELATIVE PERCENT (BEAKER) (test 1 % zkog=799) NEUTROPHILS ABSOLUTE COUNT (BEAKER) (test 7.95 K/ L 1.56-6.13 wnln=408) LYMPHOCYTES ABSOLUTE COUNT (BEAKER) (test 1.93 K/ L 1.18-3.74 quuc=423) MONOCYTES ABSOLUTE COUNT (BEAKER) (test 0.66 K/ L 0.24-0.36 iifl=734) EOSINOPHILS ABSOLUTE COUNT (BEAKER) (test 0.18 K/ L 0.04-0.36 gtgf=129) BASOPHILS ABSOLUTE COUNT (BEAKER) (test 0.07 K/ L 0.01-0.08 xdhe=119) IMMATURE GRANULOCYTES-RELATIVE PERCENT (BEAKER) 0 % 0-1 (test gxcp=5263) BLOOD GAS, [id number] 03:18:00 Test Item Value Reference Range Comments PH ARTERIAL (BEAKER) (test zawg=865) 7.40 7.35-7.45 PCO2 ARTERIAL (BEAKER) (test hffg=135) 40 mmHg 35-45 PO2 ARTERIAL (BEAKER) (test rgea=911) 63 mmHg 80-90 O2 SATURATION ARTERIAL (BEAKER) (test qtbt=490) 92.3 % 96.0-97.0 HCO3 ARTERIAL (BEAKER) (test bmfl=836) 24 mmol/L 21-29 BASE EXCESS ARTERIAL (BEAKER) (test luee=111) -0.6 mmol/L -2.0-3.0 PATIENT TEMPERATURE (BEAKER) (test oxws=2206) 36.8 C FIO2 (BEAKER) (test cven=7945) 36.0 % CALCIUM, [id number] 16:32:00 Test Item Value Reference Range Comments CALCIUM IONIZED (BEAKER) (test buqo=169) 1.11 mmol/L 1.12-1.27 PH, BLOOD (BEAKER) (test waed=1082) 7.39 BASIC METABOLIC [id number] 15:43:00 Test Item Value Reference Range Comments SODIUM (BEAKER) (test 139 meq/L 136-145 evsh=923) POTASSIUM (BEAKER) (test 4.6 meq/L 3.5-5.1 ssmm=106) CHLORIDE (BEAKER) (test 106 meq/L 98-107 bypt=839) CO2 (BEAKER) (test 21 meq/L 22-29 ulee=435) BLOOD UREA NITROGEN 54 mg/dL 7-21 (BEAKER) (test fmgk=582) CREATININE (BEAKER) (test 3.08 mg/dL 0.57-1.25 ggmv=412) GLUCOSE RANDOM (BEAKER) 116 mg/dL 70-105 (test blds=435) CALCIUM (BEAKER) (test 8.1 mg/dL 8.4-10.2 lymq=395) EGFR (BEAKER) (test 15 mL/min/1.73 sq m ESTIMATED GFR IS NOT wjhp=9706) ACCURATE CREATININE CLEARANCE IN PREDICTING GLOMERULAR FILTRATION RATE. ESTIMATED GFR IS NOT APPLICABLE FOR DIALYSIS PATIENTS. POCT-GLUCOSE [id number] 12:53:00 Test Item Value Reference Range Comments POC-GLUCOSE METER (BEAKER) 118 mg/dL 70-110 TESTED AT [address] (test zwyj=1280) [facility] [address] BLOOD GAS, [id number] 10:42:00 Test Item Value Reference Range Comments PH ARTERIAL (BEAKER) (test gykq=363) 7.40 7.35-7.45 PCO2 ARTERIAL (BEAKER) (test gcdm=894) 38 mmHg 35-45 PO2 ARTERIAL (BEAKER) (test mleh=600) 78 mmHg 80-90 O2 SATURATION ARTERIAL (BEAKER) (test rwso=004) 95.6 % 96.0-97.0 HCO3 ARTERIAL (BEAKER) (test wjxg=013) 23 mmol/L 21-29 BASE EXCESS ARTERIAL (BEAKER) (test wrbw=549) -1.4 mmol/L -2.0-3.0 PATIENT TEMPERATURE (BEAKER) (test ynrc=9093) 36.9 C FIO2 (BEAKER) (test nxdq=7247) 40.0 % POCT-GLUCOSE [id number] 06:46:00 Test Item Value Reference Range Comments POC-GLUCOSE METER (BEAKER) 106 mg/dL 70-110 TESTED AT [address] (test mwrw=0505) [place] [id number] RAD, CHEST, 1 VIEW, NON [id number] 05:05:00while patient is intubated or has chest [...] MDRepemily Verified Date/Time: 05/22/2017 05:05:00 Reading Location: [facility] C013Y CT Body ReadingRoom BASIC METABOLIC [id number] 05:00:00 Test Item Value Reference Range Comments SODIUM (BEAKER) (test 138 meq/L 136-145 senw=110) POTASSIUM (BEAKER) (test 4.5 meq/L 3.5-5.1 dbfh=522) CHLORIDE (BEAKER) (test 107 meq/L 98-107 qpyi=753) CO2 (BEAKER) (test 21 meq/L 22-29 spmd=101) BLOOD UREA NITROGEN 53 mg/dL 7-21 (BEAKER) (test fvvs=777) CREATININE (BEAKER) (test 3.23 mg/dL 0.57-1.25 xjed=400) GLUCOSE RANDOM (BEAKER) 126 mg/dL 70-105 (test xact=896) CALCIUM (BEAKER) (test 8.1 mg/dL 8.4-10.2 yglq=085) EGFR (BEAKER) (test 15 mL/min/1.73 sq m ESTIMATED GFR IS NOT jcqe=9406) ACCURATE CREATININE CLEARANCE IN PREDICTING GLOMERULAR FILTRATION RATE. ESTIMATED GFR IS NOT APPLICABLE FOR DIALYSIS PATIENTS. [id number] 04:41:00 Test Item Value Reference Range Comments PHOSPHORUS (BEAKER) (test dnnv=425) 6.4 mg/dL 2.3-4.7 [id number] 04:41:00 Test Item Value Reference Range Comments MAGNESIUM (BEAKER) (test agvy=761) 2.6 mg/dL 1.6-2.6 CALCIUM, [id number] 04:26:00 Test Item Value Reference Range Comments CALCIUM IONIZED (BEAKER) (test zzig=650) 1.09 mmol/L 1.12-1.27 PH, BLOOD (BEAKER) (test tdkc=1471) 7.40 OXYGEN SATURATION, [id number] 04:25:00 Test Item Value Reference Range Comments O2 SATURATION (MEASURED) (BEAKER) (test wxlb=7858) 77.0 % CBC W/PLT COUNT & AUTO [id number] 04:17:00 Test Item Value Reference Range Comments WHITE BLOOD CELL COUNT (BEAKER) (test jpbj=089) 8.9 K/ L 3.5-10.5 RED BLOOD CELL COUNT (BEAKER) (test bbrr=930) 3.14 M/ L 3.93-5.22 HEMOGLOBIN (BEAKER) (test fedf=190) 8.1 GM/DL 11.2-15.7 HEMATOCRIT (BEAKER) (test yhms=976) 26.1 % 34.1-44.9 MEAN CORPUSCULAR VOLUME (BEAKER) (test uqjf=763) 83.1 fL 79.4-94.8 MEAN CORPUSCULAR HEMOGLOBIN (BEAKER) (test 25.8 pg 25.6-32.2 sash=758) MEAN CORPUSCULAR HEMOGLOBIN CONC (BEAKER) (test 31.0 GM/DL 32.2-35.5 wyjg=540) RED CELL DISTRIBUTION WIDTH (BEAKER) (test 15.3 % 11.7-14.4 unmk=242) PLATELET COUNT (BEAKER) (test ruwc=303) 156 K/CU MM 150-450 MEAN PLATELET VOLUME (BEAKER) (test wbwi=669) 10.2 fL 9.4-12.3 NUCLEATED RED BLOOD CELLS (BEAKER) (test 0 /100 WBC 0-0 mqul=012) NEUTROPHILS RELATIVE PERCENT (BEAKER) (test 68 % aiyv=570) LYMPHOCYTES RELATIVE PERCENT (BEAKER) (test 22 % nvnl=796) MONOCYTES RELATIVE PERCENT (BEAKER) (test 8 % ekat=547) EOSINOPHILS RELATIVE PERCENT (BEAKER) (test 1 % pydh=233) BASOPHILS RELATIVE PERCENT (BEAKER) (test 1 % woyp=046) NEUTROPHILS ABSOLUTE COUNT (BEAKER) (test 6.05 K/ L 1.56-6.13 dygz=750) LYMPHOCYTES ABSOLUTE COUNT (BEAKER) (test 1.91 K/ L 1.18-3.74 xesc=609) MONOCYTES ABSOLUTE COUNT (BEAKER) (test 0.74 K/ L 0.24-0.36 ubix=101) EOSINOPHILS ABSOLUTE COUNT (BEAKER) (test 0.08 K/ L 0.04-0.36 xkxv=976) BASOPHILS ABSOLUTE COUNT (BEAKER) (test 0.05 K/ L 0.01-0.08 aslx=110) IMMATURE GRANULOCYTES-RELATIVE PERCENT (BEAKER) 0 % 0-1 (test bmrq=9645) LACTIC ACID, ARTERIAL, WHOLE [id number] 00:07:00 Test Item Value Reference Range Comments LACTATE BLOOD ARTERIAL (2) 1.0 mmol/L 0.5-2.2 Specimen slightly hemolyzed (BEAKER) (test lhau=4055) Effective 08/02/2015: Units/Reference Range ChangeNew: 0.5-2.2 mmol/L Previous: 5 -20 mg/dLPOCT-GLUCOSE [id number] 23:47:00 Test Item Value Reference Range Comments POC-GLUCOSE METER (BEAKER) 180 mg/dL 70-110 TESTED AT [facility] [address] [facility] (test xlwj=3997) [facility] [address] BLOOD GAS, [id number] 23:46:00 Test Item Value Reference Range Comments PH ARTERIAL (BEAKER) (test lsga=518) 7.40 7.35-7.45 PCO2 ARTERIAL (BEAKER) (test qlqr=731) 37 mmHg 35-45 PO2 ARTERIAL (BEAKER) (test xxkj=447) 136 mmHg 80-90 O2 SATURATION ARTERIAL (BEAKER) (test eprs=862) 98.7 % 96.0-97.0 HCO3 ARTERIAL (BEAKER) (test wtoo=200) 22 mmol/L 21-29 BASE EXCESS ARTERIAL (BEAKER) (test aepj=623) -2.4 mmol/L -2.0-3.0 PATIENT TEMPERATURE (BEAKER) (test qxva=7557) 37.0 C FIO2 (BEAKER) (test ibws=9244) 100.0 % SODIUM NA-STAT [id number] 23:46:00 Test Item Value Reference Range Comments SODIUM (BEAKER) (test wzax=034) 134 meq/L 135-148 GLUCOSE-STAT [id number] 23:46:00 Test Item Value Reference Range Comments GLUCOSE RANDOM (BEAKER) (test xfhe=732) 119 mg/dL 70-110 HGB/HCT (H&H) - STAT [id number] 23:46:00 Test Item Value Reference Range Comments HEMOGLOBIN (BEAKER) (test zqdr=432) 8.8 g/dL 12.0-15.0 HEMATOCRIT (BEAKER) (test kjlj=693) 26.0 % 36.0-45.0 OXYGEN SATURATION, [id number] 23:45:00 Test Item Value Reference Range Comments O2 SATURATION (MEASURED) (BEAKER) (test rwnq=1765) 68.1 % POTASSIUM-STAT [id number] 23:45:00 Test Item Value Reference Range Comments POTASSIUM (BEAKER) (test ndsv=671) 5.5 meq/L 3.6-5.5 POCT-GLUCOSE [id number] 20:58:00 Test Item Value Reference Range Comments POC-GLUCOSE METER (BEAKER) 133 mg/dL 70-110 TESTED AT [address] (test hbib=1954) [facility] [address] POCT-GLUCOSE [id number] 17:58:00 Test Item Value Reference Range Comments POC-GLUCOSE METER (BEAKER) 210 mg/dL 70-110 TESTED AT [address] (test eyly=0892) [facility] [address] POCT-GLUCOSE [id number] 17:58:00 Test Item Value Reference Range Comments POC-GLUCOSE METER (BEAKER) 211 mg/dL 70-110 TESTED AT [address] (test wgta=7107) [facility] [address] POCT-GLUCOSE [id number] 17:58:00 Test Item Value Reference Range Comments POC-GLUCOSE METER (BEAKER) 232 mg/dL 70-110 TESTED AT [address] (test imkc=0399) [facility] [address] POCT-GLUCOSE [id number] 17:58:00 Test Item Value Reference Range Comments POC-GLUCOSE METER (BEAKER) 262 mg/dL 70-110 TESTED AT [address] (test gffi=2740) [place] [id number] BLOOD GAS, [id number] 17:01:00 Test Item Value Reference Range Comments PH ARTERIAL (BEAKER) (test fcwu=351) 7.38 7.35-7.45 PCO2 ARTERIAL (BEAKER) (test zdbn=602) 39 mmHg 35-45 PO2 ARTERIAL (BEAKER) (test omvx=949) 75 mmHg 80-90 O2 SATURATION ARTERIAL (BEAKER) (test rnjw=720) 94.9 % 96.0-97.0 HCO3 ARTERIAL (BEAKER) (test coex=175) 23 mmol/L 21-29 BASE EXCESS ARTERIAL (BEAKER) (test elld=945) -2.5 mmol/L -2.0-3.0 PATIENT TEMPERATURE (BEAKER) (test gyao=1092) 36.8 C FIO2 (BEAKER) (test qydt=3790) 60.0 % POTASSIUM-STAT [id number] 17:00:00 Test Item Value Reference Range Comments POTASSIUM (BEAKER) (test ggku=449) 4.8 meq/L 3.6-5.5 POCT-GLUCOSE [id number] 15:52:00 Test Item Value Reference Range Comments POC-GLUCOSE METER (BEAKER) 267 mg/dL 70-110 TESTED AT [address] (test txyo=6280) [place] [address] POCT-GLUCOSE [id number] 14:42:00 Test Item Value Reference Range Comments POC-GLUCOSE METER (BEAKER) 231 mg/dL 70-110 TESTED AT [address] (test nyus=0611) [place] [address] BODY FLUID CELL COUNT WITH [id number] 14:41:00 Test Item Value Reference Range Comments APPEARANCE FLUID (BEAKER) (test dixc=294) Turbid Clear COLOR FLUID (BEAKER) (test ccvk=925) Colorless Colorless, Straw RBC FLUID (BEAKER) (test kksq=257) 2000 /cu mm <=1 ADJUSTED WBC FLUID (BEAKER) (test auaa=9205) 1489 /cu mm <=5 LINING CELLS (BEAKER) (test gzbg=1943) 119 /cu mm <=1 NEUTROPHILS FLUID (BEAKER) (test fngu=2596) 40 % LYMPHS FLUID (BEAKER) (test rjen=558) 34 % MONO/MACROPHAGE FLUID (BEAKER) (test pbpp=737) 26 % EOSINOPHILS FLUID (BEAKER) (test hrun=152) 0 % BASO FLUID (BEAKER) (test hycw=331) 0 % CONTAINER BODY FLUID (BEAKER) (test pmmu=1300) EDTA Tube BASIC METABOLIC [id number] 14:11:00 Test Item Value Reference Range Comments SODIUM (BEAKER) (test 137 meq/L 136-145 tduf=324) POTASSIUM (BEAKER) (test 5.6 meq/L 3.5-5.1 qtwn=192) CHLORIDE (BEAKER) (test 106 meq/L 98-107 ueuk=873) CO2 (BEAKER) (test 20 meq/L 22-29 ljds=665) BLOOD UREA NITROGEN 48 mg/dL 7-21 (BEAKER) (test dffw=491) CREATININE (BEAKER) (test 2.50 mg/dL 0.57-1.25 xwys=496) GLUCOSE RANDOM (BEAKER) 221 mg/dL 70-105 (test njnk=126) CALCIUM (BEAKER) (test 8.1 mg/dL 8.4-10.2 wppa=194) EGFR (BEAKER) (test 20 mL/min/1.73 sq m ESTIMATED GFR IS NOT zryz=8863) ACCURATE CREATININE CLEARANCE IN PREDICTING GLOMERULAR FILTRATION RATE. ESTIMATED GFR IS NOT APPLICABLE FOR DIALYSIS PATIENTS. [id number] 14:08:00 Test Item Value Reference Range Comments PHOSPHORUS (BEAKER) (test vqlz=346) 7.2 mg/dL 2.3-4.7 [id number] 14:08:00 Test Item Value Reference Range Comments MAGNESIUM (BEAKER) (test tqxy=058) 2.6 mg/dL 1.6-2.6 POCT-GLUCOSE [id number] 12:49:00 Test Item Value Reference Range Comments POC-GLUCOSE METER (BEAKER) 224 mg/dL 70-110 TESTED AT [facility] [address] (test llzi=9435) [facility] [address] POCT-GLUCOSE [id number] 12:49:00 Test Item Value Reference Range Comments POC-GLUCOSE METER (BEAKER) 248 mg/dL 70-110 TESTED AT [facility] [address] (test xkem=7136) [facility] [address] RAD, CHEST, 1 VIEW, NON [id number] 12:32:00Reason for exam:->re- intubationShould this be performed [...] MDReport Verified Date/Time: 05/21/2017 12:32:08 Reading Location: [facility] Radiology Reading Room POTASSIUM-STAT [id number] 12:28:00 Test Item Value Reference Range Comments POTASSIUM (BEAKER) (test gvmx=511) 5.5 meq/L 3.6-5.5 BLOOD GAS, [id number] 12:28:00 Test Item Value Reference Range Comments PH ARTERIAL (BEAKER) (test hurb=604) 7.32 7.35-7.45 PCO2 ARTERIAL (BEAKER) (test wvdu=620) 45 mmHg 35-45 PO2 ARTERIAL (BEAKER) (test qgwy=282) 304 mmHg 80-90 O2 SATURATION ARTERIAL (BEAKER) (test lhhj=248) 99.7 % 96.0-97.0 HCO3 ARTERIAL (BEAKER) (test ygnr=719) 22 mmol/L 21-29 BASE EXCESS ARTERIAL (BEAKER) (test cfcv=805) -3.7 mmol/L -2.0-3.0 PATIENT TEMPERATURE (BEAKER) (test mbcm=7946) 37.0 C FIO2 (BEAKER) (test ugle=7279) 100.0 % BLOOD GAS, [id number] 10:53:00 Test Item Value Reference Range Comments PH ARTERIAL (BEAKER) (test ftme=309) 7.36 7.35-7.45 PCO2 ARTERIAL (BEAKER) (test sieq=844) 35 mmHg 35-45 PO2 ARTERIAL (BEAKER) (test mnkk=046) 40 mmHg 80-90 O2 SATURATION ARTERIAL (BEAKER) (test wwzg=647) 82.3 % 96.0-97.0 HCO3 ARTERIAL (BEAKER) (test ewxg=817) 20 mmol/L 21-29 BASE EXCESS ARTERIAL (BEAKER) (test zmpe=997) -5.9 mmol/L -2.0-3.0 PATIENT TEMPERATURE (BEAKER) (test kzzs=2590) 33.7 C FIO2 (BEAKER) (test bmat=5254) 36.0 % RAD, CHEST, 1 VIEW, NON [id number] 08:46:00while patient is intubated or has chest [...] Verified Date/ Time: 05/21/2017 08:46:27 Reading Location: [facility] Radiology Reading Room BLOOD GAS, [id number] 05:41:00 Test Item Value Reference Range Comments PH ARTERIAL (BEAKER) (test ugrn=178) 7.33 7.35-7.45 PCO2 ARTERIAL (BEAKER) (test aylw=655) 40 mm Hg 35-45 PO2 ARTERIAL (BEAKER) (test zmvh=238) 106 mm Hg 80-90 O2 SATURATION ARTERIAL (BEAKER) (test axlw=477) 97.5 % 96.0-97.0 HCO3 ARTERIAL (BEAKER) (test bmhz=516) 21 mmol/L 21-29 BASE EXCESS ARTERIAL (BEAKER) (test zzjd=489) -5.1 mmol/L -2.0-3.0 PATIENT TEMPERATURE (BEAKER) (test kren=7200) 37.0 FIO2 (BEAKER) (test dhix=3519) 40 CALCIUM, [id number] 04:35:00 Test Item Value Reference Range Comments CALCIUM IONIZED (BEAKER) (test ipuk=720) 1.13 mmol/L 1.12-1.27 PH, BLOOD (BEAKER) (test rrih=1062) 7.32 BLOOD GAS, [id number] 04:28:00 Test Item Value Reference Range Comments PH ARTERIAL (BEAKER) (test uirp=277) 7.32 7.35-7.45 PCO2 ARTERIAL (BEAKER) (test apyd=563) 40 mmHg 35-45 PO2 ARTERIAL (BEAKER) (test diih=256) 100 mmHg 80-90 O2 SATURATION ARTERIAL (BEAKER) (test nfdc=679) 97.2 % 96.0-97.0 HCO3 ARTERIAL (BEAKER) (test tlfg=591) 20 mmol/L 21-29 BASE EXCESS ARTERIAL (BEAKER) (test odli=671) -5.7 mmol/L -2.0-3.0 PATIENT TEMPERATURE (BEAKER) (test svvg=4230) 36.9 C FIO2 (BEAKER) (test rukc=4428) 40.0 % [id number] 04:20:00 Test Item Value Reference Range Comments PHOSPHORUS (BEAKER) (test vnpi=200) 6.2 mg/dL 2.3-4.7 [id number] 04:20:00 Test Item Value Reference Range Comments MAGNESIUM (BEAKER) (test xeju=234) 2.4 mg/dL 1.6-2.6 HEPATIC FUNCTION [id number] 04:20:00 Test Item Value Reference Range Comments TOTAL PROTEIN (BEAKER) (test acee=509) 4.8 gm/dL 6.0-8.3 ALBUMIN (BEAKER) (test okhv=8190) 2.5 g/dL 3.5-5.0 BILIRUBIN TOTAL (BEAKER) (test ysxj=614) 0.7 mg/dL 0.2-1.2 BILIRUBIN DIRECT (BEAKER) (test zhri=861) 0.3 mg/dL 0.1-0.5 ALKALINE PHOSPHATASE (BEAKER) (test txim=234) 96 U/L 40-150 AST (SGOT) (BEAKER) (test vrtj=646) 31 U/L 5-34 ALT (SGPT) (BEAKER) (test xybn=530) 11 U/L 6-55 BASIC METABOLIC [id number] 04:20:00 Test Item Value Reference Range Comments SODIUM (BEAKER) (test 134 meq/L 136-145 vcgp=081) POTASSIUM (BEAKER) (test 5.0 meq/L 3.5-5.1 jlgo=473) CHLORIDE (BEAKER) (test 105 meq/L 98-107 fvyz=149) CO2 (BEAKER) (test 18 meq/L 22-29 deuy=272) BLOOD UREA NITROGEN 45 mg/dL 7-21 (BEAKER) (test nzew=224) CREATININE (BEAKER) (test 1.91 mg/dL 0.57-1.25 trhu=620) GLUCOSE RANDOM (BEAKER) 247 mg/dL 70-105 (test txth=696) CALCIUM (BEAKER) (test 7.9 mg/dL 8.4-10.2 zmpa=722) EGFR (BEAKER) (test 27 mL/min/1.73 sq m ESTIMATED GFR IS NOT dcxt=9950) ACCURATE CREATININE CLEARANCE IN PREDICTING GLOMERULAR FILTRATION RATE. ESTIMATED GFR IS NOT APPLICABLE FOR DIALYSIS PATIENTS. OXYGEN SATURATION, [id number] 04:18:00 Test Item Value Reference Range Comments O2 SATURATION (MEASURED) (BEAKER) (test ktji=9053) 68.0 % LACTIC ACID, ARTERIAL, WHOLE [id number] 04:12:00 Test Item Value Reference Range Comments LACTATE BLOOD ARTERIAL (2) (BEAKER) (test 1.0 mmol/L 0.5-2.2 marm=9098) Effective 08/02/2015: Units/Reference Range ChangeNew: 0.5-2.2 mmol/L Previous: 5 -20 mg/dLCBC W/PLT COUNT & AUTO [id number] 04:00:00 Test Item Value Reference Range Comments WHITE BLOOD CELL COUNT (BEAKER) (test psir=513) 12.0 K/ L 3.5-10.5 RED BLOOD CELL COUNT (BEAKER) (test vivj=405) 3.32 M/ L 3.93-5.22 HEMOGLOBIN (BEAKER) (test vmwj=893) 8.8 GM/DL 11.2-15.7 HEMATOCRIT (BEAKER) (test gdcd=644) 28.3 % 34.1-44.9 MEAN CORPUSCULAR VOLUME (BEAKER) (test smqd=876) 85.2 fL 79.4-94.8 MEAN CORPUSCULAR HEMOGLOBIN (BEAKER) (test 26.5 pg 25.6-32.2 swiz=888) MEAN CORPUSCULAR HEMOGLOBIN CONC (BEAKER) (test 31.1 GM/DL 32.2-35.5 ompd=962) RED CELL DISTRIBUTION WIDTH (BEAKER) (test 15.0 % 11.7-14.4 nyil=297) PLATELET COUNT (BEAKER) (test tkgs=670) 157 K/CU MM 150-450 MEAN PLATELET VOLUME (BEAKER) (test dtne=775) 10.7 fL 9.4-12.3 NUCLEATED RED BLOOD CELLS (BEAKER) (test 0 /100 WBC 0-0 hbmw=076) NEUTROPHILS RELATIVE PERCENT (BEAKER) (test 91 % irft=267) LYMPHOCYTES RELATIVE PERCENT (BEAKER) (test 4 % edge=245) MONOCYTES RELATIVE PERCENT (BEAKER) (test 4 % exkv=294) EOSINOPHILS RELATIVE PERCENT (BEAKER) (test 0 % upry=185) BASOPHILS RELATIVE PERCENT (BEAKER) (test 0 % gczp=082) NEUTROPHILS ABSOLUTE COUNT (BEAKER) (test 10.95 K/ L 1.56-6.13 gvck=739) LYMPHOCYTES ABSOLUTE COUNT (BEAKER) (test 0.52 K/ L 1.18-3.74 pgnw=020) MONOCYTES ABSOLUTE COUNT (BEAKER) (test 0.42 K/ L 0.24-0.36 acum=081) EOSINOPHILS ABSOLUTE COUNT (BEAKER) (test 0.01 K/ L 0.04-0.36 myzc=118) BASOPHILS ABSOLUTE COUNT (BEAKER) (test 0.05 K/ L 0.01-0.08 trns=024) IMMATURE GRANULOCYTES-RELATIVE PERCENT (BEAKER) 0 % 0-1 (test wkcc=9883) BLOOD GAS, [id number] 00:06:00 Test Item Value Reference Range Comments PH ARTERIAL (BEAKER) (test wylq=404) 7.26 7.35-7.45 PCO2 ARTERIAL (BEAKER) (test coug=878) 52 mmHg 35-45 PO2 ARTERIAL (BEAKER) (test udea=163) 88 mmHg 80-90 O2 SATURATION ARTERIAL (BEAKER) (test fsju=053) 95.7 % 96.0-97.0 HCO3 ARTERIAL (BEAKER) (test nudq=641) 23 mmol/L 21-29 BASE EXCESS ARTERIAL (BEAKER) (test axot=661) -4.0 mmol/L -2.0-3.0 PATIENT TEMPERATURE (BEAKER) (test ijar=8117) 36.4 C FIO2 (BEAKER) (test wlig=1955) 40.0 % [id number] 18:55:00 Test Item Value Reference Range Comments PHOSPHORUS (BEAKER) (test dlba=977) 4.8 mg/dL 2.3-4.7 [id number] 18:55:00 Test Item Value Reference Range Comments MAGNESIUM (BEAKER) (test nrft=474) 2.3 mg/dL 1.6-2.6 BASIC METABOLIC [id number] 18:55:00 Test Item Value Reference Range Comments SODIUM (BEAKER) (test 136 meq/L 136-145 utem=731) POTASSIUM (BEAKER) (test 4.5 meq/L 3.5-5.1 zxdg=634) CHLORIDE (BEAKER) (test 108 meq/L 98-107 huve=086) CO2 (BEAKER) (test 21 meq/L 22-29 zwoe=742) BLOOD UREA NITROGEN 39 mg/dL 7-21 (BEAKER) (test qlig=851) CREATININE (BEAKER) (test 1.58 mg/dL 0.57-1.25 enpl=638) GLUCOSE RANDOM (BEAKER) 172 mg/dL 70-105 (test geyc=227) CALCIUM (BEAKER) (test 7.9 mg/dL 8.4-10.2 fsro=574) EGFR (BEAKER) (test 33 mL/min/1.73 sq m ESTIMATED GFR IS NOT vlpg=8769) ACCURATE CREATININE CLEARANCE IN PREDICTING GLOMERULAR FILTRATION RATE. ESTIMATED GFR IS NOT APPLICABLE FOR DIALYSIS PATIENTS. LACTIC ACID, ARTERIAL, WHOLE [id number] 18:53:00 Test Item Value Reference Range Comments LACTATE BLOOD ARTERIAL (2) 0.9 mmol/L 0.5-2.2 Specimen slightly hemolyzed (BEAKER) (test uyzb=7404) Effective 08/02/2015: Units/Reference Range ChangeNew: 0.5-2.2 mmol/L Previous: 5 -20 mg/dLRAD, CHEST, 1 VIEW, NON [id number] 18:44:00Reason for exam:-> postop cardiacShould this be [...] MDReport Verified Date/Time: 2017 18:44:30 Reading Location: [facility] [id number] Consult Reading Room Electronically signed by: LISA LI M.D. on05/20/2017 06:44 PMCBC W/PLT COUNT & AUTO [id number] 18:38:00 Test Item Value Reference Range Comments WHITE BLOOD CELL COUNT (BEAKER) (test xlkq=099) 8.7 K/ L 3.5-10.5 RED BLOOD CELL COUNT (BEAKER) (test mwxh=586) 3.33 M/ L 3.93-5.22 HEMOGLOBIN (BEAKER) (test ciag=372) 8.7 GM/DL 11.2-15.7 HEMATOCRIT (BEAKER) (test tchr=236) 27.9 % 34.1-44.9 MEAN CORPUSCULAR VOLUME (BEAKER) (test ebsl=822) 83.8 fL 79.4-94.8 MEAN CORPUSCULAR HEMOGLOBIN (BEAKER) (test 26.1 pg 25.6-32.2 ivdh=140) MEAN CORPUSCULAR HEMOGLOBIN CONC (BEAKER) (test 31.2 GM/DL 32.2-35.5 hqnn=607) RED CELL DISTRIBUTION WIDTH (BEAKER) (test 14.9 % 11.7-14.4 dmpf=413) PLATELET COUNT (BEAKER) (test ztml=368) 137 K/CU MM 150-450 MEAN PLATELET VOLUME (BEAKER) (test tkxj=751) 10.2 fL 9.4-12.3 NUCLEATED RED BLOOD CELLS (BEAKER) (test 0 /100 WBC 0-0 caki=545) NEUTROPHILS RELATIVE PERCENT (BEAKER) (test 79 % oery=555) LYMPHOCYTES RELATIVE PERCENT (BEAKER) (test 12 % akqi=204) MONOCYTES RELATIVE PERCENT (BEAKER) (test 7 % ptxf=249) EOSINOPHILS RELATIVE PERCENT (BEAKER) (test 1 % lyxe=705) BASOPHILS RELATIVE PERCENT (BEAKER) (test 1 % ijzs=649) NEUTROPHILS ABSOLUTE COUNT (BEAKER) (test 6.83 K/ L 1.56-6.13 grja=064) LYMPHOCYTES ABSOLUTE COUNT (BEAKER) (test 1.06 K/ L 1.18-3.74 mxce=297) MONOCYTES ABSOLUTE COUNT (BEAKER) (test 0.56 K/ L 0.24-0.36 qykz=984) EOSINOPHILS ABSOLUTE COUNT (BEAKER) (test 0.12 K/ L 0.04-0.36 pedi=786) BASOPHILS ABSOLUTE COUNT (BEAKER) (test 0.04 K/ L 0.01-0.08 jpfy=403) IMMATURE GRANULOCYTES-RELATIVE PERCENT (BEAKER) 1 % 0-1 (test suve=2591) OXYGEN SATURATION, [id number] 18:36:00 Test Item Value Reference Range Comments O2 SATURATION (MEASURED) (BEAKER) (test uign=5245) 72.5 % From distal port of IJ central venous catheterSODIUM NA-STAT [id number] 18:30 :00 Test Item Value Reference Range Comments SODIUM (BEAKER) (test uhtk=651) 132 meq/L 135-148 HGB/HCT (H&H) - STAT [id number] 18:30:00 Test Item Value Reference Range Comments HEMOGLOBIN (BEAKER) (test uiar=766) 9.4 g/dL 12.0-15.0 HEMATOCRIT (BEAKER) (test cgff=402) 28.0 % 36.0-45.0 GLUCOSE-STAT [id number] 18:30:00 Test Item Value Reference Range Comments GLUCOSE RANDOM (BEAKER) (test jbnh=388) 159 mg/dL 70-110 BLOOD GAS, [id number] 18:30:00 Test Item Value Reference Range Comments PH ARTERIAL (BEAKER) (test gndq=427) 7.34 7.35-7.45 PCO2 ARTERIAL (BEAKER) (test pwje=695) 43 mmHg 35-45 PO2 ARTERIAL (BEAKER) (test fexk=701) 76 mmHg 80-90 O2 SATURATION ARTERIAL (BEAKER) (test bzve=615) 94.9 % 96.0-97.0 HCO3 ARTERIAL (BEAKER) (test ynww=240) 23 mmol/L 21-29 BASE EXCESS ARTERIAL (BEAKER) (test pein=153) -2.6 mmol/L -2.0-3.0 PATIENT TEMPERATURE (BEAKER) (test kgwd=8003) 36.4 C FIO2 (BEAKER) (test leho=6796) 60.0 % CALCIUM, [id number] 18:30:00 Test Item Value Reference Range Comments CALCIUM IONIZED (BEAKER) (test mqfw=259) 0.94 mmol/L 1.12-1.27 PH, BLOOD (BEAKER) (test csfp=3787) 7.34 POTASSIUM-STAT [id number] 18:28:00 Test Item Value Reference Range Comments POTASSIUM (BEAKER) (test zaiv=424) 4.4 meq/L 3.6-5.5 THROMBOELASTOGRAPH ([id number] 18:11:00 Test Item Value Reference Range Comments TEG ACTIVATED CLOTTING TIME (BEAKER) (test 6.7 minutes 4.0-7.0 hpvh=2929) TEG FIBRINOGEN ACTIVITY (BEAKER) (test 66.6 degrees 61.0-73.0 btvp=2164) TEG PLT. AGGREGATION (BEAKER) (test muyf=4213) 62.4 MM 55.0-65.0 TEG FIBRINOLYSIS (BEAKER) (test akhg=3271) 0.0 % 0.0-5.0 TGH ACTIVATED CLOTTING TIME (BEAKER) (test 6.7 minutes 4.0-7.0 ercr=9558) [facility]GH FIBRINOGEN ACTIVITY ([facility]) (test 69.0 degrees 61.0-73.0 gxkm=7180) TGH PLT. AGGREGATION ([facility]) (test mgot=4247) 62.8 MM 55.0-65.0 TGH FIBRINOLYSIS ([facility]) (test rzgq=5582) 0.0 % 0.0-5.0 [id number] 17:53:00 Test Item Value Reference Range Comments ACTIVATED CLOTTING TIME 103 sec TESTED AT [address] [facility] (test rkrh=152) [place] [address] [id number] 17:53:00 Test Item Value Reference Range Comments ACTIVATED CLOTTING TIME 466 sec TESTED AT [address] [facility]) (test gczh=974) [place] [address] [id number] 17:53:00 Test Item Value Reference Range Comments ACTIVATED CLOTTING TIME 543 sec TESTED AT [address] ([facility]) (test uenu=720) [place] [address] [id number] 17:53:00 Test Item Value Reference Range Comments ACTIVATED CLOTTING TIME 549 sec TESTED AT [address] [facility]) (test ddrl=230) [place] [address] [id number] 17:53:00 Test Item Value Reference Range Comments ACTIVATED CLOTTING TIME 632 sec TESTED AT [address] ([facility]) (test afvk=805) [place] [address] [id number] 17:53:00 Test Item Value Reference Range Comments ACTIVATED CLOTTING TIME 494 sec TESTED AT [address] ([facility]) (test hedg=556) [place] [address] [id number] 17:53:00 Test Item Value Reference Range Comments ACTIVATED CLOTTING TIME 587 sec TESTED AT [address] ([facility]) (test ruwe=652) [place] [address] [id number] 17:53:00 Test Item Value Reference Range Comments ACTIVATED CLOTTING TIME 626 sec TESTED AT [address] ([facility]) (test pyrb=001) [place] [address] [id number] 17:52:00 Test Item Value Reference Range Comments ACTIVATED CLOTTING TIME 808 sec TESTED AT [facility] [address] (BEAKER) (test jfyy=853) [place] [address] [id number] 16:54:00 Test Item Value Reference Range Comments PARTIAL THROMBOPLASTIN TIME (BEAKER) (test 40.2 seconds 22.5-36.0 objr=892) [id number] 16:53:00 Test Item Value Reference Range Comments FIBRINOGEN LEVEL (BEAKER) (test vgaj=500) 306 mg/dl 225-434 PROTHROMBIN [id number] 16:50:00 Test Item Value Reference Range Comments PROTIME (BEAKER) (test pnsn=194) 19.6 seconds 11.7-14.7 INR (BEAKER) (test qkdb=174) 1.7 <=5.9 RECOMMENDED COUMADIN/WARFARIN INR THERAPY RANGESSTANDARD DOSE: 2.0 - 3.0 Includes: PROPHYLAXIS forvenous thrombosis, systemic embolization; TREATMENT for venous thrombosis and/or pulmonary embolus.HIGH RISK: Target INR is 2.5-3.5 for patients with mechanical heart valves.PLATELET [id number] 16:45:00 Test Item Value Reference Range Comments PLATELET COUNT (BEAKER) (test nths=788) 136 K/CU MM 150-450 POTASSIUM-STAT [id number] 16:15:00 Test Item Value Reference Range Comments POTASSIUM (BEAKER) (test wcqo=512) 4.9 meq/L 3.6-5.5 BLOOD GAS, [id number] 16:15:00 Test Item Value Reference Range Comments PH ARTERIAL (BEAKER) (test rjpo=077) 7.39 7.35-7.45 PCO2 ARTERIAL (BEAKER) (test oqar=071) 42 mmHg 35-45 PO2 ARTERIAL (BEAKER) (test sbfm=392) 201 mmHg 80-90 O2 SATURATION ARTERIAL (BEAKER) (test arci=724) 99.4 % 96.0-97.0 HCO3 ARTERIAL (BEAKER) (test zyud=067) 25 mmol/L 21-29 BASE EXCESS ARTERIAL (BEAKER) (test zjus=204) -0.3 mmol/L -2.0-3.0 PATIENT TEMPERATURE (BEAKER) (test hbrp=5123) 36.3 C FIO2 (BEAKER) (test qksz=7184) 100.0 % SODIUM NA-STAT [id number] 16:15:00 Test Item Value Reference Range Comments SODIUM (BEAKER) (test pgba=589) 131 meq/L 135-148 GLUCOSE-STAT [id number] 16:15:00 Test Item Value Reference Range Comments GLUCOSE RANDOM (BEAKER) (test orxs=515) 198 mg/dL 70-110 HGB/HCT (H&H) - STAT [id number] 16:15:00 Test Item Value Reference Range Comments HEMOGLOBIN (BEAKER) (test uybk=655) 7.5 g/dL 12.0-15.0 HEMATOCRIT (BEAKER) (test yobf=523) 22.0 % 36.0-45.0 CALCIUM, [id number] 16:14:00 Test Item Value Reference Range Comments CALCIUM IONIZED (BEAKER) (test xyvu=899) 0.91 mmol/L 1.12-1.27 PH, BLOOD (BEAKER) (test vuwu=3579) 7.39 BLOOD GAS, [id number] 15:39:00 Test Item Value Reference Range Comments PH ARTERIAL (BEAKER) (test xfvr=662) 7.44 7.35-7.45 PCO2 ARTERIAL (BEAKER) (test llwt=659) 38 mmHg 35-45 PO2 ARTERIAL (BEAKER) (test ydao=852) 298 mmHg 80-90 O2 SATURATION ARTERIAL (BEAKER) (test gyog=791) 99.7 % 96.0-97.0 HCO3 ARTERIAL (BEAKER) (test gugi=370) 25 mmol/L 21-29 BASE EXCESS ARTERIAL (BEAKER) (test lgoq=698) 0.7 mmol/L -2.0-3.0 PATIENT TEMPERATURE (BEAKER) (test esks=1487) 36.2 C FIO2 (BEAKER) (test dqqm=6303) 70.0 % SODIUM NA-STAT [id number] 15:39:00 Test Item Value Reference Range Comments SODIUM (BEAKER) (test ddkc=571) 131 meq/L 135-148 GLUCOSE-STAT [id number] 15:39:00 Test Item Value Reference Range Comments GLUCOSE RANDOM (BEAKER) (test dcjh=242) 186 mg/dL 70-110 HGB/HCT (H&H) - STAT [id number] 15:39:00 Test Item Value Reference Range Comments HEMOGLOBIN (BEAKER) (test qwql=558) 7.5 g/dL 12.0-15.0 HEMATOCRIT (BEAKER) (test bzai=937) 22.0 % 36.0-45.0 POTASSIUM-STAT [id number] 15:38:00 Test Item Value Reference Range Comments POTASSIUM (BEAKER) (test najc=146) 5.3 meq/L 3.6-5.5 BLOOD GAS, [id number] 15:24:00 Test Item Value Reference Range Comments PH ARTERIAL (BEAKER) (test bpni=635) 7.47 7.35-7.45 PCO2 ARTERIAL (BEAKER) (test yhzs=398) 37 mmHg 35-45 PO2 ARTERIAL (BEAKER) (test hzxj=230) 334 mmHg 80-90 O2 SATURATION ARTERIAL (BEAKER) (test jdnb=810) 99.8 % 96.0-97.0 HCO3 ARTERIAL (BEAKER) (test ulmb=154) 26 mmol/L 21-29 BASE EXCESS ARTERIAL (BEAKER) (test hvli=692) 2.2 mmol/L -2.0-3.0 PATIENT TEMPERATURE (BEAKER) (test lwts=2806) 36.2 C FIO2 (BEAKER) (test dhom=1762) 70.0 % SODIUM NA-STAT [id number] 15:24:00 Test Item Value Reference Range Comments SODIUM (BEAKER) (test ugoq=835) 130 meq/L 135-148 GLUCOSE-STAT [id number] 15:24:00 Test Item Value Reference Range Comments GLUCOSE RANDOM (BEAKER) (test hxzp=003) 189 mg/dL 70-110 HGB/HCT (H&H) - STAT [id number] 15:24:00 Test Item Value Reference Range Comments HEMOGLOBIN (BEAKER) (test tobd=977) 6.7 g/dL 12.0-15.0 HEMATOCRIT (BEAKER) (test kbea=732) 20.0 % 36.0-45.0 POTASSIUM-STAT [id number] 15:23:00 Test Item Value Reference Range Comments POTASSIUM (BEAKER) (test xhzi=544) 5.4 meq/L 3.6-5.5 BLOOD GAS, [id number] 15:07:00 Test Item Value Reference Range Comments PH ARTERIAL (BEAKER) (test tcuj=216) 7.43 7.35-7.45 PCO2 ARTERIAL (BEAKER) (test sldo=268) 41 mmHg 35-45 PO2 ARTERIAL (BEAKER) (test qvdi=557) 365 mmHg 80-90 O2 SATURATION ARTERIAL (BEAKER) (test gebw=383) 99.8 % 96.0-97.0 HCO3 ARTERIAL (BEAKER) (test dowl=467) 27 mmol/L 21-29 BASE EXCESS ARTERIAL (BEAKER) (test nooj=446) 1.9 mmol/L -2.0-3.0 PATIENT TEMPERATURE (BEAKER) (test pwqk=9460) 35.8 C FIO2 (BEAKER) (test tkkp=1606) 70.0 % SODIUM NA-STAT [id number] 15:07:00 Test Item Value Reference Range Comments SODIUM (BEAKER) (test qocc=931) 129 meq/L 135-148 GLUCOSE-STAT [id number] 15:07:00 Test Item Value Reference Range Comments GLUCOSE RANDOM (BEAKER) (test ykcp=743) 172 mg/dL 70-110 HGB/HCT (H&H) - STAT [id number] 15:07:00 Test Item Value Reference Range Comments HEMOGLOBIN (BEAKER) (test xuxq=623) 7.1 g/dL 12.0-15.0 HEMATOCRIT (BEAKER) (test sbcw=601) 21.0 % 36.0-45.0 POTASSIUM-STAT [id number] 15:04:00 Test Item Value Reference Range Comments POTASSIUM (BEAKER) (test tapq=985) 5.0 meq/L 3.6-5.5 BLOOD GAS, [id number] 14:21:00 Test Item Value Reference Range Comments PH ARTERIAL (BEAKER) (test fqum=355) 7.43 7.35-7.45 PCO2 ARTERIAL (BEAKER) (test xixa=154) 38 mmHg 35-45 PO2 ARTERIAL (BEAKER) (test wegd=944) 360 mmHg 80-90 O2 SATURATION ARTERIAL (BEAKER) (test yybo=957) 99.8 % 96.0-97.0 HCO3 ARTERIAL (BEAKER) (test pynb=279) 27 mmol/L 21-29 BASE EXCESS ARTERIAL (BEAKER) (test dvce=598) 0.3 mmol/L -2.0-3.0 PATIENT TEMPERATURE (BEAKER) (test qtjy=2542) 28.9 C FIO2 (BEAKER) (test bpze=1251) 70.0 % SODIUM NA-STAT [id number] 14:21:00 Test Item Value Reference Range Comments SODIUM (BEAKER) (test scdo=470) 133 meq/L 135-148 GLUCOSE-STAT [id number] 14:21:00 Test Item Value Reference Range Comments GLUCOSE RANDOM (BEAKER) (test mvdq=252) 160 mg/dL 70-110 HGB/HCT (H&H) - STAT [id number] 14:21:00 Test Item Value Reference Range Comments HEMOGLOBIN (BEAKER) (test ckfi=554) 7.5 g/dL 12.0-15.0 HEMATOCRIT (BEAKER) (test syic=273) 22.0 % 36.0-45.0 POTASSIUM-STAT [id number] 14:20:00 Test Item Value Reference Range Comments POTASSIUM (BEAKER) (test yrgx=200) 4.7 meq/L 3.6-5.5 BLOOD GAS, [id number] 13:58:00 Test Item Value Reference Range Comments PH ARTERIAL (BEAKER) (test fhrz=066) 7.43 7.35-7.45 PCO2 ARTERIAL (BEAKER) (test youz=880) 37 mmHg 35-45 PO2 ARTERIAL (BEAKER) (test wkdx=745) 448 mmHg 80-90 O2 SATURATION ARTERIAL (BEAKER) (test vqmv=996) 99.9 % 96.0-97.0 HCO3 ARTERIAL (BEAKER) (test peny=004) 26 mmol/L 21-29 BASE EXCESS ARTERIAL (BEAKER) (test gyld=898) -0.1 mmol/L -2.0-3.0 PATIENT TEMPERATURE (BEAKER) (test jcsl=8416) 29.2 C FIO2 (BEAKER) (test yswc=1052) 80.0 % SODIUM NA-STAT [id number] 13:58:00 Test Item Value Reference Range Comments SODIUM (BEAKER) (test crdp=744) 132 meq/L 135-148 GLUCOSE-STAT [id number] 13:58:00 Test Item Value Reference Range Comments GLUCOSE RANDOM (BEAKER) (test ywvb=701) 166 mg/dL 70-110 HGB/HCT (H&H) - STAT [id number] 13:58:00 Test Item Value Reference Range Comments HEMOGLOBIN (BEAKER) (test slii=304) 7.5 g/dL 12.0-15.0 HEMATOCRIT (BEAKER) (test xose=352) 22.0 % 36.0-45.0 POTASSIUM-STAT [id number] 13:57:00 Test Item Value Reference Range Comments POTASSIUM (BEAKER) (test shwi=162) 4.7 meq/L 3.6-5.5 BLOOD GAS, [id number] 13:35:00 Test Item Value Reference Range Comments PH ARTERIAL (BEAKER) (test njhq=613) 7.51 7.35-7.45 PCO2 ARTERIAL (BEAKER) (test aooe=549) 33 mmHg 35-45 PO2 ARTERIAL (BEAKER) (test ttwx=051) 453 mmHg 80-90 O2 SATURATION ARTERIAL (BEAKER) (test lsmp=059) 99.9 % 96.0-97.0 HCO3 ARTERIAL (BEAKER) (test plhh=825) 28 mmol/L 21-29 BASE EXCESS ARTERIAL (BEAKER) (test vazw=661) 2.7 mmol/L -2.0-3.0 PATIENT TEMPERATURE (BEAKER) (test nwuj=2666) 29.2 C FIO2 (BEAKER) (test xtrz=3060) 80.0 % GLUCOSE-STAT [id number] 13:35:00 Test Item Value Reference Range Comments GLUCOSE RANDOM (BEAKER) (test kmai=336) 130 mg/dL 70-110 HGB/HCT (H&H) - STAT [id number] 13:35:00 Test Item Value Reference Range Comments HEMOGLOBIN (BEAKER) (test wzzy=683) 6.7 g/dL 12.0-15.0 HEMATOCRIT (BEAKER) (test uppf=836) 20.0 % 36.0-45.0 SODIUM NA-STAT [id number] 13:35:00 Test Item Value Reference Range Comments SODIUM (BEAKER) (test uodx=270) 133 meq/L 135-148 POTASSIUM-STAT [id number] 13:34:00 Test Item Value Reference Range Comments POTASSIUM (BEAKER) (test kgpj=690) 4.2 meq/L 3.6-5.5 BLOOD GAS, [id number] 13:16:00 Test Item Value Reference Range Comments PH ARTERIAL (BEAKER) (test gkil=833) 7.42 7.35-7.45 PCO2 ARTERIAL (BEAKER) (test tlwn=314) 34 mmHg 35-45 PO2 ARTERIAL (BEAKER) (test hoyy=081) 375 mmHg 80-90 O2 SATURATION ARTERIAL (BEAKER) (test syqm=507) 99.8 % 96.0-97.0 HCO3 ARTERIAL (BEAKER) (test jtpo=058) 23 mmol/L 21-29 BASE EXCESS ARTERIAL (BEAKER) (test zrbd=469) -2.5 mmol/L -2.0-3.0 PATIENT TEMPERATURE (BEAKER) (test darb=6950) 31.5 C FIO2 (BEAKER) (test vhal=5232) 80.0 % SODIUM NA-STAT [id number] 13:16:00 Test Item Value Reference Range Comments SODIUM (BEAKER) (test hvtt=071) 133 meq/L 135-148 HGB/HCT (H&H) - STAT [id number] 13:16:00 Test Item Value Reference Range Comments HEMOGLOBIN (BEAKER) (test womo=980) 6.3 g/dL 12.0-15.0 HEMATOCRIT (BEAKER) (test pqnm=369) 19.0 % 36.0-45.0 CALCIUM, [id number] 13:15:00 Test Item Value Reference Range Comments CALCIUM IONIZED (BEAKER) (test raqk=818) 0.98 mmol/L 1.12-1.27 PH, BLOOD (BEAKER) (test bizz=1113) 7.34 BLOOD GAS, [id number] 13:15:00 Test Item Value Reference Range Comments PH VENOUS (BEAKER) (test aopb=945) 7.39 7.32-7.42 PCO2 VENOUS (BEAKER) (test fovx=265) 38 mmHg 41-51 PO2 VENOUS (BEAKER) (test itvh=675) 43 mmHg 25-40 O2 SATURATION VENOUS (BEAKER) (test vwfg=957) 90.0 % 40.0-70.0 HCO3 VENOUS (BEAKER) (test chfy=296) 24 mmol/L 21-29 BASE EXCESS VENOUS (BEAKER) (test dqde=555) -2.1 mmol/L -2.0-3.0 PATIENT TEMPERATURE (BEAKER) (test mmgq=6206) 31.5 C FIO2 (BEAKER) (test czdb=0840) 80.0 % GLUCOSE-STAT [id number] 13:14:00 Test Item Value Reference Range Comments GLUCOSE RANDOM (BEAKER) (test ofgc=251) 92 mg/dL 70-110 POTASSIUM-STAT [id number] 13:14:00 Test Item Value Reference Range Comments POTASSIUM (BEAKER) (test ketl=437) 3.9 meq/L 3.6-5.5 BLOOD GAS, [id number] 10:54:00 Test Item Value Reference Range Comments PH ARTERIAL (BEAKER) (test eezh=513) 7.41 7.35-7.45 PCO2 ARTERIAL (BEAKER) (test mwsj=522) 39 mmHg 35-45 PO2 ARTERIAL (BEAKER) (test cvov=469) 254 mmHg 80-90 O2 SATURATION ARTERIAL (BEAKER) (test adma=285) 99.6 % 96.0-97.0 HCO3 ARTERIAL (BEAKER) (test brtc=309) 25 mmol/L 21-29 BASE EXCESS ARTERIAL (BEAKER) (test imen=452) -0.3 mmol/L -2.0-3.0 PATIENT TEMPERATURE (BEAKER) (test qktr=6162) 35.4 C FIO2 (BEAKER) (test tvhf=6139) 100.0 % HGB/HCT (H&H) - STAT [id number] 10:54:00 Test Item Value Reference Range Comments HEMOGLOBIN (BEAKER) (test cdip=471) 9.3 g/dL 12.0-15.0 HEMATOCRIT (BEAKER) (test wnut=239) 27.0 % 36.0-45.0 SODIUM NA-STAT [id number] 10:54:00 Test Item Value Reference Range Comments SODIUM (BEAKER) (test esfm=836) 132 meq/L 135-148 GLUCOSE-STAT [id number] 10:52:00 Test Item Value Reference Range Comments GLUCOSE RANDOM (BEAKER) (test upua=064) 94 mg/dL 70-110 POTASSIUM-STAT [id number] 10:52:00 Test Item Value Reference Range Comments POTASSIUM (BEAKER) (test hspb=853) 4.0 meq/L 3.6-5.5 HEMOGLOBIN [id number] 09:50:00 Test Item Value Reference Range Comments HEMOGLOBIN A1C (BEAKER) (test bbbg=575) 10.6 % 4.3-6.1 PLATELET AGGREGATION: FUNCTION [id number] 08:27:00 Test Item Value Reference Range Comments WEAK ADP RESULT(BEAKER) (test 63 % 60-91 qpoa=7982) PLATELET FUNCTION SCREEN 60-100% indicates normal INTERP (BEAKER) (test platelet function hgun=0329) [id number] (BEAKER) Toshia Post MD (electronic (test afhc=9813) signature) PLATELET COUNT AGG (BEAKER) 198 K/CU MM 150-450 (test hxcy=6785) for patients on clopidogrel in past two weeksPOCT-GLUCOSE [id number] 08:11: 00 Test Item Value Reference Range Comments POC-GLUCOSE METER (BEAKER) 116 mg/dL 70-110 TESTED AT [facility] [address] [facility] (test okey=9768) [facility] [address] [id number] 07:10:00 Test Item Value Reference Range Comments PHOSPHORUS (BEAKER) (test cazw=175) 4.5 mg/dL 2.3-4.7 [id number] 07:10:00 Test Item Value Reference Range Comments MAGNESIUM (BEAKER) (test nnpe=491) 2.1 mg/dL 1.6-2.6 BASIC METABOLIC [id number] 07:10:00 Test Item Value Reference Range Comments SODIUM (BEAKER) (test 135 meq/L 136-145 lcli=037) POTASSIUM (BEAKER) (test 4.4 meq/L 3.5-5.1 acmr=490) CHLORIDE (BEAKER) (test 106 meq/L 98-107 nusy=043) CO2 (BEAKER) (test 23 meq/L 22-29 zgzr=359) BLOOD UREA NITROGEN 40 mg/dL 7-21 (BEAKER) (test zras=809) CREATININE (BEAKER) (test 1.67 mg/dL 0.57-1.25 epye=910) GLUCOSE RANDOM (BEAKER) 107 mg/dL 70-105 (test dpcn=696) CALCIUM (BEAKER) (test 8.3 mg/dL 8.4-10.2 sxve=208) EGFR (BEAKER) (test 31 mL/min/1.73 sq m ESTIMATED GFR IS NOT iudz=3941) ACCURATE CREATININE CLEARANCE IN PREDICTING GLOMERULAR FILTRATION RATE. ESTIMATED GFR IS NOT APPLICABLE FOR DIALYSIS PATIENTS. B-TYPE NATRIURETIC FACTOR (BNP)2017-05-20 06:56:00 Test Item Value Reference Range Comments B-TYPE NATRIURETIC PEPTIDE (BEAKER) (test 552 pg/mL 0-100 fixj=482) CBC W/PLT COUNT & AUTO [id number] 06:46:00 Test Item Value Reference Range Comments WHITE BLOOD CELL COUNT (BEAKER) (test qxeh=128) 6.2 K/ L 3.5-10.5 RED BLOOD CELL COUNT (BEAKER) (test btnu=363) 3.56 M/ L 3.93-5.22 HEMOGLOBIN (BEAKER) (test noeu=639) 9.1 GM/DL 11.2-15.7 HEMATOCRIT (BEAKER) (test sdcs=150) 29.5 % 34.1-44.9 MEAN CORPUSCULAR VOLUME (BEAKER) (test icti=316) 82.9 fL 79.4-94.8 MEAN CORPUSCULAR HEMOGLOBIN (BEAKER) (test 25.6 pg 25.6-32.2 eywo=251) MEAN CORPUSCULAR HEMOGLOBIN CONC (BEAKER) (test 30.8 GM/DL 32.2-35.5 dqfj=294) RED CELL DISTRIBUTION WIDTH (BEAKER) (test 14.4 % 11.7-14.4 ogvp=634) PLATELET COUNT (BEAKER) (test ivhv=092) 222 K/CU MM 150-450 MEAN PLATELET VOLUME (BEAKER) (test idod=758) 10.5 fL 9.4-12.3 NUCLEATED RED BLOOD CELLS (BEAKER) (test 0 /100 WBC 0-0 vrfe=714) NEUTROPHILS RELATIVE PERCENT (BEAKER) (test 47 % akva=381) LYMPHOCYTES RELATIVE PERCENT (BEAKER) (test 39 % rqhs=669) MONOCYTES RELATIVE PERCENT (BEAKER) (test 8 % uovz=614) EOSINOPHILS RELATIVE PERCENT (BEAKER) (test 5 % xhsu=507) BASOPHILS RELATIVE PERCENT (BEAKER) (test 1 % aptc=518) NEUTROPHILS ABSOLUTE COUNT (BEAKER) (test 2.90 K/ L 1.56-6.13 huhw=958) LYMPHOCYTES ABSOLUTE COUNT (BEAKER) (test 2.37 K/ L 1.18-3.74 dqli=662) MONOCYTES ABSOLUTE COUNT (BEAKER) (test 0.49 K/ L 0.24-0.36 rjkv=350) EOSINOPHILS ABSOLUTE COUNT (BEAKER) (test 0.30 K/ L 0.04-0.36 gwrm=550) BASOPHILS ABSOLUTE COUNT (BEAKER) (test 0.08 K/ L 0.01-0.08 twau=267) IMMATURE GRANULOCYTES-RELATIVE PERCENT (BEAKER) 0 % 0-1 (test euwh=7687) CALCIUM, [id number] 06:40:00 Test Item Value Reference Range Comments CALCIUM IONIZED (BEAKER) (test qkgu=567) 1.06 mmol/L 1.12-1.27 PH, BLOOD (BEAKER) (test xjzb=4617) 7.39 POCT-GLUCOSE [id number] 23:22:00 Test Item Value Reference Range Comments POC-GLUCOSE METER (BEAKER) 165 mg/dL 70-110 TESTED AT [facility] [address] [facility] (test usge=9621) [facility] [address] URINE PROTEIN ELECTROPHORESIS, [id number] 18:02:00 Test Item Value Reference Range Comments PROTEIN, URINE (BEAKER) (test 305 mg/dL 0-14 hvry=3224) ALBUMIN URINE ELP (BEAKER) 70.9 % (test xphu=0557) GAMMA GLOBULIN URINE (BEAKER) 29.1 % (test dgav=6457) UPEP, ID-438 (BEAKER) (test No monoclonal bands detected. immh=0283) [id number] (BEAKER) Rocio Galindo MD (test pwqh=2905) (electronic signature) PROTEIN ELECTROPHORESIS, [id number] 17:57:00 Test Item Value Reference Range Comments ALBUMIN FRACTION (BEAKER) 2.5 g/dL 3.5-5.5 (test ttlh=670) ALPHA 1 FRACTION (BEAKER) 0.3 g/dL 0.2-0.4 (test blcz=150) ALPHA 2 FRACTION (BEAKER) 0.9 g/dL 0.5-0.9 (test orik=632) BETA FRACTION (BEAKER) (test 0.8 g/dL 0.6-1.1 beoi=640) GAMMA GLOBULIN FRACTION 1.0 g/dL 0.7-1.7 (BEAKER) (test wycl=382) INTERPRETATION-119 (BEAKER) Decreased albumin with (test qpts=2654) concurrent relative increases in all globulin fractions. No monoclonal bands detected. [id number] (BEAKER) Rocio Galindo MD (test kjgd=2190) (electronic signature) PROTEIN TOTAL SERUM, SPEP 5.5 gm/dL 6.0-8.3 (BEAKER) (test cudn=7658) POCT-GLUCOSE [id number] 17:15:00 Test Item Value Reference Range Comments POC-GLUCOSE METER (BEAKER) 209 mg/dL 70-110 TESTED AT [facility] [address] [facility] (test avcx=2995) [facility] [address] BLOOD GAS, [id number] 15:54:00 Test Item Value Reference Range Comments PH ARTERIAL (BEAKER) (test yczb=389) 7.45 7.35-7.45 PCO2 ARTERIAL (BEAKER) (test tamd=938) 38 mmHg 35-45 PO2 ARTERIAL (BEAKER) (test ampa=342) 69 mmHg 80-90 O2 SATURATION ARTERIAL (BEAKER) (test gmbe=301) 94.5 % 96.0-97.0 HCO3 ARTERIAL (BEAKER) (test tbzd=506) 25 mmol/L 21-29 BASE EXCESS ARTERIAL (BEAKER) (test treg=932) 1.3 mmol/L -2.0-3.0 PATIENT TEMPERATURE (BEAKER) (test ghle=1470) 37.0 C FIO2 (BEAKER) (test rmfa=0644) 36.0 % RAD, CHEST, 1 VIEW, NON [id number] 14:07:00Reason for exam:->SOB, hypoxemiaShould this be performed [...] Eder Cespedes Verified Date/Time: 2017 14:07:07 Reading Location:[facility] [id number] Consult Reading Room POCT- GLUCOSE [id number] 11:26:00 Test Item Value Reference Range Comments POC-GLUCOSE METER (BEAKER) 262 mg/dL 70-110 TESTED AT [address] (test izrp=5812) [facility] [address] POCT-GLUCOSE [id number] 07:37:00 Test Item Value Reference Range Comments POC-GLUCOSE METER (BEAKER) 170 mg/dL 70-110 TESTED AT [address] (test skpj=9025) [facility] [address] CALCIUM, [id number] 06:06:00 Test Item Value Reference Range Comments CALCIUM IONIZED (BEAKER) (test atgp=859) 1.05 mmol/L 1.12-1.27 PH, BLOOD (BEAKER) (test hwkj=9749) 7.41 [id number] 05:38:00 Test Item Value Reference Range Comments PHOSPHORUS (BEAKER) (test xmae=763) 3.9 mg/dL 2.3-4.7 [id number] 05:38:00 Test Item Value Reference Range Comments MAGNESIUM (BEAKER) (test csqz=635) 2.2 mg/dL 1.6-2.6 BASIC METABOLIC [id number] 05:38:00 Test Item Value Reference Range Comments SODIUM (BEAKER) (test 135 meq/L 136-145 sabg=279) POTASSIUM (BEAKER) (test 4.5 meq/L 3.5-5.1 hqlm=713) CHLORIDE (BEAKER) (test 105 meq/L 98-107 cbhp=575) CO2 (BEAKER) (test 24 meq/L 22-29 fchl=937) BLOOD UREA NITROGEN 41 mg/dL 7-21 (BEAKER) (test brtr=493) CREATININE (BEAKER) (test 1.74 mg/dL 0.57-1.25 dkmb=177) GLUCOSE RANDOM (BEAKER) 174 mg/dL 70-105 (test fpch=618) CALCIUM (BEAKER) (test 8.4 mg/dL 8.4-10.2 azkx=693) EGFR (BEAKER) (test 30 mL/min/1.73 sq m ESTIMATED GFR IS NOT trqd=6918) ACCURATE CREATININE CLEARANCE IN PREDICTING GLOMERULAR FILTRATION RATE. ESTIMATED GFR IS NOT APPLICABLE FOR DIALYSIS PATIENTS. CBC W/PLT COUNT & AUTO [id number] 05:09:00 Test Item Value Reference Range Comments WHITE BLOOD CELL COUNT (BEAKER) (test fgnq=061) 8.5 K/ L 3.5-10.5 RED BLOOD CELL COUNT (BEAKER) (test lnhp=798) 3.54 M/ L 3.93-5.22 HEMOGLOBIN (BEAKER) (test dhlq=272) 9.1 GM/DL 11.2-15.7 HEMATOCRIT (BEAKER) (test dsak=331) 29.1 % 34.1-44.9 MEAN CORPUSCULAR VOLUME (BEAKER) (test pgft=560) 82.2 fL 79.4-94.8 MEAN CORPUSCULAR HEMOGLOBIN (BEAKER) (test 25.7 pg 25.6-32.2 odmv=318) MEAN CORPUSCULAR HEMOGLOBIN CONC (BEAKER) (test 31.3 GM/DL 32.2-35.5 athc=134) RED CELL DISTRIBUTION WIDTH (BEAKER) (test 14.5 % 11.7-14.4 pvqf=987) PLATELET COUNT (BEAKER) (test cwtr=285) 201 K/CU MM 150-450 MEAN PLATELET VOLUME (BEAKER) (test sebv=204) 10.7 fL 9.4-12.3 NUCLEATED RED BLOOD CELLS (BEAKER) (test 0 /100 WBC 0-0 lsjo=324) NEUTROPHILS RELATIVE PERCENT (BEAKER) (test 56 % qdeq=404) LYMPHOCYTES RELATIVE PERCENT (BEAKER) (test 32 % tlqi=230) MONOCYTES RELATIVE PERCENT (BEAKER) (test 7 % byda=674) EOSINOPHILS RELATIVE PERCENT (BEAKER) (test 4 % hefu=545) BASOPHILS RELATIVE PERCENT (BEAKER) (test 1 % gwbh=750) NEUTROPHILS ABSOLUTE COUNT (BEAKER) (test 4.80 K/ L 1.56-6.13 qdnp=720) LYMPHOCYTES ABSOLUTE COUNT (BEAKER) (test 2.73 K/ L 1.18-3.74 osiv=726) MONOCYTES ABSOLUTE COUNT (BEAKER) (test 0.62 K/ L 0.24-0.36 yeqy=881) EOSINOPHILS ABSOLUTE COUNT (BEAKER) (test 0.30 K/ L 0.04-0.36 fpqu=658) BASOPHILS ABSOLUTE COUNT (BEAKER) (test 0.06 K/ L 0.01-0.08 halj=693) IMMATURE GRANULOCYTES-RELATIVE PERCENT (BEAKER) 0 % 0-1 (test mnxl=7831) POCT-GLUCOSE [id number] 22:08:00 Test Item Value Reference Range Comments POC-GLUCOSE METER (BEAKER) 263 mg/dL 70-110 TESTED AT [address] (test kljf=4513) [place] [id number] POCT-GLUCOSE [id number] 17:20:00 Test Item Value Reference Range Comments POC-GLUCOSE METER (BEAKER) 233 mg/dL 70-110 TESTED AT [address] (test hjwa=8107) [place] [id number] POCT-GLUCOSE [id number] 08:28:00 Test Item Value Reference Range Comments POC-GLUCOSE METER (BEAKER) 154 mg/dL 70-110 TESTED AT [address] (test uxfy=7927) [place] [id number] BASIC METABOLIC [id number] 06:41:00 Test Item Value Reference Range Comments SODIUM (BEAKER) (test 135 meq/L 136-145 qqyc=239) POTASSIUM (BEAKER) (test 4.6 meq/L 3.5-5.1 lsdw=853) CHLORIDE (BEAKER) (test 104 meq/L 98-107 ghvm=779) CO2 (BEAKER) (test 23 meq/L 22-29 pelo=513) BLOOD UREA NITROGEN 39 mg/dL 7-21 (BEAKER) (test rpct=680) CREATININE (BEAKER) (test 1.77 mg/dL 0.57-1.25 kbbt=076) GLUCOSE RANDOM (BEAKER) 173 mg/dL 70-105 (test owyi=117) CALCIUM (BEAKER) (test 8.6 mg/dL 8.4-10.2 nawx=847) EGFR (BEAKER) (test 29 mL/min/1.73 sq m ESTIMATED GFR IS NOT lzxn=3960) ACCURATE CREATININE CLEARANCE IN PREDICTING GLOMERULAR FILTRATION RATE. ESTIMATED GFR IS NOT APPLICABLE FOR DIALYSIS PATIENTS. [id number] 06:35:00 Test Item Value Reference Range Comments PHOSPHORUS (BEAKER) (test zzuy=151) 4.1 mg/dL 2.3-4.7 [id number] 06:35:00 Test Item Value Reference Range Comments MAGNESIUM (BEAKER) (test txtq=982) 2.1 mg/dL 1.6-2.6 CALCIUM, [id number] 06:22:00 Test Item Value Reference Range Comments CALCIUM IONIZED (BEAKER) (test jfur=260) 1.10 mmol/L 1.12-1.27 PH, BLOOD (BEAKER) (test aksv=7955) 7.38 CBC W/PLT COUNT & AUTO [id number] 06:04:00 Test Item Value Reference Range Comments WHITE BLOOD CELL COUNT (BEAKER) (test smgz=689) 9.3 K/ L 3.5-10.5 RED BLOOD CELL COUNT (BEAKER) (test acmd=096) 4.15 M/ L 3.93-5.22 HEMOGLOBIN (BEAKER) (test bqsk=545) 10.6 GM/DL 11.2-15.7 HEMATOCRIT (BEAKER) (test wqvb=264) 34.2 % 34.1-44.9 MEAN CORPUSCULAR VOLUME (BEAKER) (test lykn=919) 82.4 fL 79.4-94.8 MEAN CORPUSCULAR HEMOGLOBIN (BEAKER) (test 25.5 pg 25.6-32.2 zzbw=523) MEAN CORPUSCULAR HEMOGLOBIN CONC (BEAKER) (test 31.0 GM/DL 32.2-35.5 rkfc=719) RED CELL DISTRIBUTION WIDTH (BEAKER) (test 14.6 % 11.7-14.4 fpbz=173) PLATELET COUNT (BEAKER) (test xcvs=874) 183 K/CU MM 150-450 MEAN PLATELET VOLUME (BEAKER) (test avjt=636) 11.0 fL 9.4-12.3 NUCLEATED RED BLOOD CELLS (BEAKER) (test 0 /100 WBC 0-0 hftx=813) NEUTROPHILS RELATIVE PERCENT (BEAKER) (test 66 % pqjc=630) LYMPHOCYTES RELATIVE PERCENT (BEAKER) (test 24 % worb=086) MONOCYTES RELATIVE PERCENT (BEAKER) (test 7 % hprv=224) EOSINOPHILS RELATIVE PERCENT (BEAKER) (test 3 % dxxx=900) BASOPHILS RELATIVE PERCENT (BEAKER) (test 1 % kvnq=480) NEUTROPHILS ABSOLUTE COUNT (BEAKER) (test 6.15 K/ L 1.56-6.13 qudz=062) LYMPHOCYTES ABSOLUTE COUNT (BEAKER) (test 2.20 K/ L 1.18-3.74 zocz=181) MONOCYTES ABSOLUTE COUNT (BEAKER) (test 0.62 K/ L 0.24-0.36 nswo=117) EOSINOPHILS ABSOLUTE COUNT (BEAKER) (test 0.24 K/ L 0.04-0.36 gbnf=365) BASOPHILS ABSOLUTE COUNT (BEAKER) (test 0.06 K/ L 0.01-0.08 cgml=217) IMMATURE GRANULOCYTES-RELATIVE PERCENT (BEAKER) 0 % 0-1 (test bgsd=6756) POCT-GLUCOSE [id number] 03:44:00 Test Item Value Reference Range Comments POC-GLUCOSE METER (BEAKER) 220 mg/dL 70-110 TESTED AT [address] (test cbud=7333) [place] [address] POCT-GLUCOSE [id number] 18:27:00 Test Item Value Reference Range Comments POC-GLUCOSE METER (BEAKER) 256 mg/dL 70-110 TESTED AT [address] (test lxsg=9581) [place] [address] POCT-GLUCOSE [id number] 15:45:00 Test Item Value Reference Range Comments POC-GLUCOSE METER (BEAKER) 278 mg/dL 70-110 TESTED AT [address] (test ckbn=8020) [place] [address] POCT-GLUCOSE [id number] 13:22:00 Test Item Value Reference Range Comments POC-GLUCOSE METER (BEAKER) 278 mg/dL 70-110 TESTED AT [address] (test ohoi=7558) [place] [address] PLATELET AGGREGATION: FUNCTION [id number] 13:18:00 Test Item Value Reference Range Comments WEAK ADP RESULT(BEAKER) (test 66 % 60-91 alqn=6793) PLATELET FUNCTION SCREEN 60-100% indicates normal INTERP (BEAKER) (test platelet function huzr=0595) XBAL-INTBSEYRFIN-4900 (BEAKER) Rigoberto Duenas MD (electronic (test domw=0763) signature) PLATELET COUNT AGG (BEAKER) 204 K/CU MM 150-450 (test uvtx=7151) POCT-GLUCOSE [id number] 08:27:00 Test Item Value Reference Range Comments POC-GLUCOSE METER (BEAKER) 189 mg/dL 70-110 TESTED AT [facility] [address] [facility] (test chwm=7157) [facility] [address] CALCIUM, [id number] 06:12:00 Test Item Value Reference Range Comments CALCIUM IONIZED (BEAKER) (test ayhh=794) 1.07 mmol/L 1.12-1.27 PH, BLOOD (BEAKER) (test fgsn=7988) 7.36 [id number] 05:43:00 Test Item Value Reference Range Comments PHOSPHORUS (BEAKER) (test hrmi=313) 3.6 mg/dL 2.3-4.7 [id number] 05:43:00 Test Item Value Reference Range Comments MAGNESIUM (BEAKER) (test hfcw=587) 2.1 mg/dL 1.6-2.6 BASIC METABOLIC [id number] 05:43:00 Test Item Value Reference Range Comments SODIUM (BEAKER) (test 137 meq/L 136-145 mjfl=696) POTASSIUM (BEAKER) (test 4.7 meq/L 3.5-5.1 hmuv=506) CHLORIDE (BEAKER) (test 107 meq/L 98-107 spdt=816) CO2 (BEAKER) (test 24 meq/L 22-29 zkgj=299) BLOOD UREA NITROGEN 38 mg/dL 7-21 (BEAKER) (test dkho=262) CREATININE (BEAKER) (test 1.72 mg/dL 0.57-1.25 gfry=119) GLUCOSE RANDOM (BEAKER) 198 mg/dL 70-105 (test lxef=916) CALCIUM (BEAKER) (test 8.3 mg/dL 8.4-10.2 prrf=807) EGFR (BEAKER) (test 30 mL/min/1.73 sq m ESTIMATED GFR IS NOT hyuk=8837) ACCURATE CREATININE CLEARANCE IN PREDICTING GLOMERULAR FILTRATION RATE. ESTIMATED GFR IS NOT APPLICABLE FOR DIALYSIS PATIENTS. CBC W/PLT COUNT & AUTO [id number] 05:05:00 Test Item Value Reference Range Comments WHITE BLOOD CELL COUNT (BEAKER) (test eelh=513) 8.6 K/ L 3.5-10.5 RED BLOOD CELL COUNT (BEAKER) (test vwmb=079) 4.20 M/ L 3.93-5.22 HEMOGLOBIN (BEAKER) (test ndow=849) 10.7 GM/DL 11.2-15.7 HEMATOCRIT (BEAKER) (test lnwf=339) 34.7 % 34.1-44.9 MEAN CORPUSCULAR VOLUME (BEAKER) (test cset=115) 82.6 fL 79.4-94.8 MEAN CORPUSCULAR HEMOGLOBIN (BEAKER) (test 25.5 pg 25.6-32.2 awfx=616) MEAN CORPUSCULAR HEMOGLOBIN CONC (BEAKER) (test 30.8 GM/DL 32.2-35.5 nrmc=260) RED CELL DISTRIBUTION WIDTH (BEAKER) (test 14.7 % 11.7-14.4 yozl=817) PLATELET COUNT (BEAKER) (test hhog=446) 198 K/CU MM 150-450 MEAN PLATELET VOLUME (BEAKER) (test zeue=647) 11.1 fL 9.4-12.3 NUCLEATED RED BLOOD CELLS (BEAKER) (test 0 /100 WBC 0-0 vsor=732) NEUTROPHILS RELATIVE PERCENT (BEAKER) (test 63 % fhma=405) LYMPHOCYTES RELATIVE PERCENT (BEAKER) (test 28 % ivkf=562) MONOCYTES RELATIVE PERCENT (BEAKER) (test 6 % unbv=776) EOSINOPHILS RELATIVE PERCENT (BEAKER) (test 3 % fqhq=834) BASOPHILS RELATIVE PERCENT (BEAKER) (test 1 % xyim=751) NEUTROPHILS ABSOLUTE COUNT (BEAKER) (test 5.41 K/ L 1.56-6.13 hcdi=566) LYMPHOCYTES ABSOLUTE COUNT (BEAKER) (test 2.37 K/ L 1.18-3.74 trtj=892) MONOCYTES ABSOLUTE COUNT (BEAKER) (test 0.50 K/ L 0.24-0.36 wigg=894) EOSINOPHILS ABSOLUTE COUNT (BEAKER) (test 0.27 K/ L 0.04-0.36 luhc=508) BASOPHILS ABSOLUTE COUNT (BEAKER) (test 0.06 K/ L 0.01-0.08 mrbp=684) IMMATURE GRANULOCYTES-RELATIVE PERCENT (BEAKER) 0 % 0-1 (test gpjt=5583) POCT-GLUCOSE [id number] 21:32:00 Test Item Value Reference Range Comments POC-GLUCOSE METER (BEAKER) 176 mg/dL 70-110 TESTED AT [address] (test gdby=7085) [place] [address] POCT-GLUCOSE [id number] 20:27:00 Test Item Value Reference Range Comments POC-GLUCOSE METER (BEAKER) 161 mg/dL 70-110 TESTED AT [address] (test obzw=5848) [place] [address] POCT-GLUCOSE [id number] 18:23:00 Test Item Value Reference Range Comments POC-GLUCOSE METER (BEAKER) 185 mg/dL 70-110 TESTED AT [address] (test ssym=6915) [place] [address] POCT-GLUCOSE [id number] 13:26:00 Test Item Value Reference Range Comments POC-GLUCOSE METER (BEAKER) 282 mg/dL 70-110 TESTED AT [address] (test bsav=4387) [place] [address] URINE [id number] 10:12:00 Test Item Value Reference Range Comments CULTURE (BEAKER) (test zuhs=4363) >100,000 col/mL skin todd POCT-GLUCOSE [id number] 09:01:00 Test Item Value Reference Range Comments POC-GLUCOSE METER (BEAKER) 268 mg/dL 70-110 TESTED AT [address] (test ivor=1805) [place] [address] CALCIUM, [id number] 05:39:00 Test Item Value Reference Range Comments CALCIUM IONIZED (BEAKER) (test zqxk=342) 0.84 mmol/L 1.12-1.27 PH, BLOOD (BEAKER) (test hsup=4263) 7.35 BASIC METABOLIC [id number] 05:07:00 Test Item Value Reference Range Comments SODIUM (BEAKER) (test 135 meq/L 136-145 bjhx=231) POTASSIUM (BEAKER) (test 4.9 meq/L 3.5-5.1 iipd=907) CHLORIDE (BEAKER) (test 106 meq/L 98-107 zjhx=651) CO2 (BEAKER) (test 22 meq/L 22-29 ilfo=978) BLOOD UREA NITROGEN 43 mg/dL 7-21 (BEAKER) (test ivxd=471) CREATININE (BEAKER) (test 2.00 mg/dL 0.57-1.25 czfr=831) GLUCOSE RANDOM (BEAKER) 161 mg/dL 70-105 (test zbfs=589) CALCIUM (BEAKER) (test 8.2 mg/dL 8.4-10.2 trjh=972) EGFR (BEAKER) (test 25 mL/min/1.73 sq m ESTIMATED GFR IS NOT seau=8046) ACCURATE CREATININE CLEARANCE IN PREDICTING GLOMERULAR FILTRATION RATE. ESTIMATED GFR IS NOT APPLICABLE FOR DIALYSIS PATIENTS. [id number] 05:06:00 Test Item Value Reference Range Comments PHOSPHORUS (BEAKER) (test dggz=842) 3.2 mg/dL 2.3-4.7 [id number] 05:06:00 Test Item Value Reference Range Comments MAGNESIUM (BEAKER) (test mtaf=884) 2.3 mg/dL 1.6-2.6 CBC W/PLT COUNT & AUTO [id number] 04:42:00 Test Item Value Reference Range Comments WHITE BLOOD CELL COUNT (BEAKER) (test wdll=564) 9.5 K/ L 3.5-10.5 RED BLOOD CELL COUNT (BEAKER) (test qlxh=120) 4.17 M/ L 3.93-5.22 HEMOGLOBIN (BEAKER) (test wwpl=206) 10.5 GM/DL 11.2-15.7 HEMATOCRIT (BEAKER) (test pfbf=114) 34.2 % 34.1-44.9 MEAN CORPUSCULAR VOLUME (BEAKER) (test hdvh=681) 82.0 fL 79.4-94.8 MEAN CORPUSCULAR HEMOGLOBIN (BEAKER) (test 25.2 pg 25.6-32.2 fsiz=016) MEAN CORPUSCULAR HEMOGLOBIN CONC (BEAKER) (test 30.7 GM/DL 32.2-35.5 eloi=026) RED CELL DISTRIBUTION WIDTH (BEAKER) (test 14.6 % 11.7-14.4 chsw=291) PLATELET COUNT (BEAKER) (test rmmu=397) 177 K/CU MM 150-450 MEAN PLATELET VOLUME (BEAKER) (test fkvb=207) 11.1 fL 9.4-12.3 NUCLEATED RED BLOOD CELLS (BEAKER) (test 0 /100 WBC 0-0 evdr=853) NEUTROPHILS RELATIVE PERCENT (BEAKER) (test 55 % jday=515) LYMPHOCYTES RELATIVE PERCENT (BEAKER) (test 36 % oonq=531) MONOCYTES RELATIVE PERCENT (BEAKER) (test 6 % cvxl=972) EOSINOPHILS RELATIVE PERCENT (BEAKER) (test 2 % jgpy=419) BASOPHILS RELATIVE PERCENT (BEAKER) (test 1 % idrz=954) NEUTROPHILS ABSOLUTE COUNT (BEAKER) (test 5.20 K/ L 1.56-6.13 wnxl=137) LYMPHOCYTES ABSOLUTE COUNT (BEAKER) (test 3.37 K/ L 1.18-3.74 ztwi=987) MONOCYTES ABSOLUTE COUNT (BEAKER) (test 0.59 K/ L 0.24-0.36 shlv=776) EOSINOPHILS ABSOLUTE COUNT (BEAKER) (test 0.21 K/ L 0.04-0.36 butj=753) BASOPHILS ABSOLUTE COUNT (BEAKER) (test 0.07 K/ L 0.01-0.08 uexf=876) IMMATURE GRANULOCYTES-RELATIVE PERCENT (BEAKER) 0 % 0-1 (test paih=6885) RHEUMATOID FACTOR AB, REFLEX TO [id number] 01:52:00 Test Item Value Reference Range Comments RHEUMATOID FACTOR (BEAKER) (test ywfo=387) Negative POCT-GLUCOSE [id number] 21:57:00 Test Item Value Reference Range Comments POC-GLUCOSE METER (BEAKER) 105 mg/dL 70-110 TESTED AT [address] (test pjls=5517) [place] [id number] POCT-GLUCOSE [id number] 18:11:00 Test Item Value Reference Range Comments POC-GLUCOSE METER (BEAKER) 312 mg/dL 70-110 Notified GUILHERME PIERRE/TESTED AT [facility] (test xsej=3854) [address] [place] [address] PET, CARDIAC PERFUSION MULTIPLE STUDIES, REST AND [id number] 16:28: 00Reason for exam:->pvcs, known cadFINAL REPORT PROCEDURE: Rest/Stress MYOCARDIAL PERFUSION PET with regadenoson\XA9\ CPT CODE: 22712 INDICATION: Defined extent and severity of known [...] 23% . LVEF at stress is 36%. Noc Engineer CT images revealed a right pleural effusion [...] pleural and pericardial effusions. 7. No previous [facility] study for comparison. NONINVASIVE RISK STRATIFICATION: The above findings are considered high risk (>3% annual mortality rate) based on the following criteria: - Severe resting left ventricular dysfunction (LVEF 35%)- Stress-induced large perfusion defect ( particularly if anterior)(JACC. 2012;59(9):857-81.) Signed: Last Lopez MDReport Verified Date/Time: 05/15/2017 16:28:12 Reading Location: [address] P327B [facility] RAD, CHEST, 1 VIEW, NON [id number] 15:56:00Reason for exam:->SOBShould this be performed at the bedside?->YesFINAL REPORT Comparison: 05/14/2017 TECHNIQUE: Single view of the chest FINDINGS: There is a small right pleural effusion with nonspecific airspace disease. This is unchanged. Left lung is grossly clear. Cardiac silhouette is enlarged. IMPRESSION: 1. No acute cardiopulmonary disease. Signed : Sixto Monk MDReport Verified Date/Time: 05/15/2017 15:56:39 Reading Location : [facility] Radiology Reading Room POCT-GLUCOSE [id number] 12:54:00 Test Item Value Reference Range Comments POC-GLUCOSE METER (BEAKER) 308 mg/dL 70-110 Notified GUILHERME PIERRE/TESTED AT [facility] (test lmlw=4102) [address] [facility] [address] U/S, RENAL WITH [id number] 11:04:00Reason for exam:->tracy, htnShould this be performed [...] the resistive indices throughout. Signed : [facility] Verified Date/Time: 05/15/2017 11:04:01 Reading Location : [place] [id number] Ultrasound Reading Room ANA TITER AND [id number] 10:57:00 Test Item Value Reference Range Comments ROGER TITER (BEAKER) (test ibfg=5214) :160 ROGER PATTERN (BEAKER) (test fxrx=1641) Speckled ANTI-NUCLEAR ANTIBODY (ROGER)2017-05-15 10:56:00 Test Item Value Reference Range Comments ANTI-NUCLEAR ANTIBODY (ROGER) (BEAKER) (test Positive Negative evzr=560) CALCIUM, [id number] 06:00:00 Test Item Value Reference Range Comments CALCIUM IONIZED (BEAKER) (test qzwr=893) 1.07 mmol/L 1.12-1.27 PH, BLOOD (BEAKER) (test nwvu=2430) 7.28 HEPATITIS PANEL, [id number] 05:01:00 Test Item Value Reference Range Comments HEPATITIS A IGM ANTIBODY (BEAKER) (test Nonreactive Nonreactive xbpe=906) HEPATITIS B CORE IGM ANTIBODY (BEAKER) (test Nonreactive Nonreactive pmal=881) HEPATITIS C ANTIBODY (BEAKER) (test iuyz=365) Nonreactive Nonreactive HEPATITIS B SURFACE ANTIGEN (2) (BEAKER) (test Nonreactive Nonreactive zgrs=4601) BASIC METABOLIC [id number] 04:48:00 Test Item Value Reference Range Comments SODIUM (BEAKER) (test 135 meq/L 136-145 lxzz=923) POTASSIUM (BEAKER) (test 5.2 meq/L 3.5-5.1 dmxe=691) CHLORIDE (BEAKER) (test 104 meq/L 98-107 cpoi=175) CO2 (BEAKER) (test 22 meq/L 22-29 zrbh=995) BLOOD UREA NITROGEN 46 mg/dL 7-21 (BEAKER) (test slwx=147) CREATININE (BEAKER) (test 2.64 mg/dL 0.57-1.25 szlv=578) GLUCOSE RANDOM (BEAKER) 176 mg/dL 70-105 (test mrmk=354) CALCIUM (BEAKER) (test 8.2 mg/dL 8.4-10.2 zbzn=041) EGFR (BEAKER) (test 18 mL/min/1.73 sq m ESTIMATED GFR IS NOT hzke=4019) ACCURATE CREATININE CLEARANCE IN PREDICTING GLOMERULAR FILTRATION RATE. ESTIMATED GFR IS NOT APPLICABLE FOR DIALYSIS PATIENTS. URIC [id number] 04:41:00 Test Item Value Reference Range Comments URIC ACID (BEAKER) (test xidd=314) 10.3 mg/dL 2.6-7.2 [id number] 04:41:00 Test Item Value Reference Range Comments MAGNESIUM (BEAKER) (test fbut=236) 2.0 mg/dL 1.6-2.6 [id number] 04:41:00 Test Item Value Reference Range Comments PHOSPHORUS (BEAKER) (test ejfh=971) 4.2 mg/dL 2.3-4.7 COMPLEMENT COMPONENT [id number] 04:38:00 Test Item Value Reference Range Comments C4 COMPLEMENT (BEAKER) (test rbqj=596) 28 mg/dL 15-57 COMPLEMENT COMPONENT [id number] 04:38:00 Test Item Value Reference Range Comments C3 COMPLEMENT (BEAKER) (test ncbf=027) 103 mg/dL 82-193 CBC W/PLT COUNT & AUTO [id number] 04:22:00 Test Item Value Reference Range Comments WHITE BLOOD CELL COUNT (BEAKER) (test bfhj=062) 11.0 K/ L 3.5-10.5 RED BLOOD CELL COUNT (BEAKER) (test fzuu=121) 4.25 M/ L 3.93-5.22 HEMOGLOBIN (BEAKER) (test dyjx=339) 10.6 GM/DL 11.2-15.7 HEMATOCRIT (BEAKER) (test jxnb=946) 35.3 % 34.1-44.9 MEAN CORPUSCULAR VOLUME (BEAKER) (test zidc=824) 83.1 fL 79.4-94.8 MEAN CORPUSCULAR HEMOGLOBIN (BEAKER) (test 24.9 pg 25.6-32.2 azdt=642) MEAN CORPUSCULAR HEMOGLOBIN CONC (BEAKER) (test 30.0 GM/DL 32.2-35.5 hlmy=257) RED CELL DISTRIBUTION WIDTH (BEAKER) (test 14.5 % 11.7-14.4 sncn=356) PLATELET COUNT (BEAKER) (test thdz=379) 185 K/CU MM 150-450 MEAN PLATELET VOLUME (BEAKER) (test zmbt=189) 10.9 fL 9.4-12.3 NUCLEATED RED BLOOD CELLS (BEAKER) (test 0 /100 WBC 0-0 vhfa=242) NEUTROPHILS RELATIVE PERCENT (BEAKER) (test 61 % rbbw=809) LYMPHOCYTES RELATIVE PERCENT (BEAKER) (test 31 % objv=937) MONOCYTES RELATIVE PERCENT (BEAKER) (test 5 % wizk=555) EOSINOPHILS RELATIVE PERCENT (BEAKER) (test 2 % njzx=622) BASOPHILS RELATIVE PERCENT (BEAKER) (test 1 % pkef=520) NEUTROPHILS ABSOLUTE COUNT (BEAKER) (test 6.72 K/ L 1.56-6.13 fvdt=178) LYMPHOCYTES ABSOLUTE COUNT (BEAKER) (test 3.35 K/ L 1.18-3.74 uyhv=713) MONOCYTES ABSOLUTE COUNT (BEAKER) (test 0.59 K/ L 0.24-0.36 yxox=689) EOSINOPHILS ABSOLUTE COUNT (BEAKER) (test 0.21 K/ L 0.04-0.36 umld=885) BASOPHILS ABSOLUTE COUNT (BEAKER) (test 0.06 K/ L 0.01-0.08 embv=376) IMMATURE GRANULOCYTES-RELATIVE PERCENT (BEAKER) 0 % 0-1 (test jnky=9869) POCT-GLUCOSE [id number] 21:46:00 Test Item Value Reference Range Comments POC-GLUCOSE METER (BEAKER) 173 mg/dL 70-110 TESTED AT [address] (test xunu=4028) [place] [address] POCT-GLUCOSE [id number] 21:46:00 Test Item Value Reference Range Comments POC-GLUCOSE METER (BEAKER) 154 mg/dL 70-110 TESTED AT [address] (test xvby=7004) [place] [address] POCT-GLUCOSE [id number] 18:17:00 Test Item Value Reference Range Comments POC-GLUCOSE METER (BEAKER) 175 mg/dL 70-110 TESTED AT [address] (test urwj=4656) [place] [address] RAD, CHEST, 1 VIEW, NON [id number] 14:56:00Reason for exam:->SOBShould this be performed at the bedside?->YesFINAL REPORT INDICATION: SOB COMPARISON: May 13, 2017 TECHNIQUE: Chest radiograph, single view, portable technique. FINDINGS / IMPRESSION: Enlarged heart shadow, small rightpleural effusion, and pulmonary venous congestion, again demonstrated. No pneumothorax or consolidation. Osseous structures unremarkable. Signed: Satnam Jean MDRort Verified Date/Time: 05/14/2017 14:56:58 Reading Location: [facility] Mammo Reading Room POCT-GLUCOSE [id number] 12:18:00 Test Item Value Reference Range Comments POC-GLUCOSE METER (BEAKER) 313 mg/dL 70-110 TESTED AT [address] (test mygm=8805) [place] [address] HIV-1 ANTIGEN WITH HIV-1/2 [id number] 12:07:00 Test Item Value Reference Range Comments HIV-1 ANTIGEN WITH HIV 1\T\2 ANTIBODY (2) Nonreactive Nonreactive (BEAKER) (test cksy=1580) CALCIUM, [id number] 06:37:00 Test Item Value Reference Range Comments CALCIUM IONIZED (BEAKER) (test skan=521) 1.08 mmol/L 1.12-1.27 PH, BLOOD (BEAKER) (test dcsn=2197) 7.25 BASIC METABOLIC [id number] 06:26:00 Test Item Value Reference Range Comments SODIUM (BEAKER) (test 134 meq/L 136-145 ixhn=253) POTASSIUM (BEAKER) (test 5.1 meq/L 3.5-5.1 emcd=142) CHLORIDE (BEAKER) (test 103 meq/L 98-107 rilm=867) CO2 (BEAKER) (test 25 meq/L 22-29 kblo=352) BLOOD UREA NITROGEN 45 mg/dL 7-21 (BEAKER) (test vvmm=119) CREATININE (BEAKER) (test 2.92 mg/dL 0.57-1.25 boqw=251) GLUCOSE RANDOM (BEAKER) 163 mg/dL 70-105 (test ricz=045) CALCIUM (BEAKER) (test 8.1 mg/dL 8.4-10.2 aiwg=097) EGFR (BEAKER) (test 16 mL/min/1.73 sq m ESTIMATED GFR IS NOT xens=5463) ACCURATE CREATININE CLEARANCE IN PREDICTING GLOMERULAR FILTRATION RATE. ESTIMATED GFR IS NOT APPLICABLE FOR DIALYSIS PATIENTS. B-TYPE NATRIURETIC FACTOR (BNP)2017-05-14 06:26:00 Test Item Value Reference Range Comments B-TYPE NATRIURETIC PEPTIDE (BEAKER) (test 474 pg/mL 0-100 work=291) [id number] 06:25:00 Test Item Value Reference Range Comments PHOSPHORUS (BEAKER) (test nhld=785) 5.7 mg/dL 2.3-4.7 [id number] 06:25:00 Test Item Value Reference Range Comments MAGNESIUM (BEAKER) (test porv=453) 1.5 mg/dL 1.6-2.6 CBC W/PLT COUNT & AUTO [id number] 06:07:00 Test Item Value Reference Range Comments WHITE BLOOD CELL COUNT (BEAKER) (test qpks=208) 8.9 K/ L 3.5-10.5 RED BLOOD CELL COUNT (BEAKER) (test fesa=547) 4.32 M/ L 3.93-5.22 HEMOGLOBIN (BEAKER) (test mewr=865) 11.0 GM/DL 11.2-15.7 HEMATOCRIT (BEAKER) (test eflb=429) 36.6 % 34.1-44.9 MEAN CORPUSCULAR VOLUME (BEAKER) (test plkn=215) 84.7 fL 79.4-94.8 MEAN CORPUSCULAR HEMOGLOBIN (BEAKER) (test 25.5 pg 25.6-32.2 tbwr=219) MEAN CORPUSCULAR HEMOGLOBIN CONC (BEAKER) (test 30.1 GM/DL 32.2-35.5 poom=039) RED CELL DISTRIBUTION WIDTH (BEAKER) (test 14.6 % 11.7-14.4 jcdr=624) PLATELET COUNT (BEAKER) (test xczy=028) 201 K/CU MM 150-450 MEAN PLATELET VOLUME (BEAKER) (test bksi=288) 11.1 fL 9.4-12.3 NUCLEATED RED BLOOD CELLS (BEAKER) (test 0 /100 WBC 0-0 uggt=445) NEUTROPHILS RELATIVE PERCENT (BEAKER) (test 55 % asxc=582) LYMPHOCYTES RELATIVE PERCENT (BEAKER) (test 36 % bunv=133) MONOCYTES RELATIVE PERCENT (BEAKER) (test 5 % ydce=131) EOSINOPHILS RELATIVE PERCENT (BEAKER) (test 3 % vuos=929) BASOPHILS RELATIVE PERCENT (BEAKER) (test 1 % pwna=718) NEUTROPHILS ABSOLUTE COUNT (BEAKER) (test 4.85 K/ L 1.56-6.13 ucbx=797) LYMPHOCYTES ABSOLUTE COUNT (BEAKER) (test 3.18 K/ L 1.18-3.74 gtah=216) MONOCYTES ABSOLUTE COUNT (BEAKER) (test 0.47 K/ L 0.24-0.36 qubs=403) EOSINOPHILS ABSOLUTE COUNT (BEAKER) (test 0.25 K/ L 0.04-0.36 acwu=195) BASOPHILS ABSOLUTE COUNT (BEAKER) (test 0.07 K/ L 0.01-0.08 nxys=062) IMMATURE GRANULOCYTES-RELATIVE PERCENT (BEAKER) 0 % 0-1 (test vgzq=7804) POCT-GLUCOSE [id number] 22:38:00 Test Item Value Reference Range Comments POC-GLUCOSE METER (BEAKER) 262 mg/dL 70-110 TESTED AT [facility] [address] (test sham=6745) [facility] [address] PROTEIN, RANDOM [id number] 22:18:00 Test Item Value Reference Range Comments PROTEIN, URINE (BEAKER) (test muob=6699) 641 mg/dL 0-14 CREATININE, RANDOM [id number] 22:07:00 Test Item Value Reference Range Comments CREATININE URINE (BEAKER) (test tmpg=633) 124.9 mg/dL Reference Range: No NormalsURINALYSIS W/ [id number] 22:03:00 Test Item Value Reference Range Comments COLOR (BEAKER) (test yhno=803) Yellow CLARITY (BEAKER) (test pwzp=169) Cloudy SPECIFIC GRAVITY UA (BEAKER) (test aysy=394) 1.015 1.001-1.035 PH UA (BEAKER) (test asjc=214) 5.5 5.0-8.0 PROTEIN UA (BEAKER) (test ztkx=990) 300 mg/dL Negative GLUCOSE UA (BEAKER) (test sslv=934) 300 mg/dL Negative KETONES UA (BEAKER) (test ipug=022) Negative Negative BILIRUBIN UA (BEAKER) (test wzqh=185) Negative Negative BLOOD UA (BEAKER) (test szsm=846) Trace Negative NITRITE UA (BEAKER) (test irjc=372) Negative Negative LEUKOCYTE ESTERASE UA (BEAKER) (test cplw=109) Moderate Negative UROBILINOGEN UA (BEAKER) (test xmrj=201) 0.2 mg/dL 0.2-1.0 RBC UA (BEAKER) (test flqy=809) 11 /HPF WBC UA (BEAKER) (test pyxm=311) 36 /HPF MUCUS (BEAKER) (test ufcj=8454) Few SQUAMOUS EPITHELIAL (BEAKER) (test btvp=384) 12 /HPF HYALINE CASTS (BEAKER) (test vswp=075) 66 /LPF CASTS (BEAKER) (test oeje=9165) 112 /LPF YEAST (BEAKER) (test cdbg=6738) Moderate SOURCE(BEAKER) (test utdh=7557) Urine, Voided [id number] 19:49:00 Test Item Value Reference Range Comments SODIUM (BEAKER) (test qzjc=829) 136 meq/L 136-145 POTASSIUM (BEAKER) (test 5.1 meq/L 3.5-5.1 Specimen slightly hemolyzed bbft=526) CHLORIDE (BEAKER) (test 104 meq/L 98-107 xbrl=517) CO2 (BEAKER) (test eqnb=246) 25 meq/L 22-29 Call if K > 5POCT-GLUCOSE [id number] 11:37:00 Test Item Value Reference Range Comments POC-GLUCOSE METER (BEAKER) 293 mg/dL 70-110 TESTED AT [address] (test wxvc=6769) [place] [address] RAD, CHEST, 1 VIEW, NON [id number] 10:22:00Reason for exam:->SOBShould this be performed at the bedside?->YesFINAL REPORT Chest one view Discussion: There is cardiomegaly and interstitial congestion. A small right-sided effusion is noted. No pneumothorax. IMPRESSIONS: Suspected CHF. Signed: Jeannette Nava Verified Date/Time: 05/13/2017 10:22:34 Reading Location: [facility] Radiology Reading Room POCT-GLUCOSE [id number] 08:34:00 Test Item Value Reference Range Comments POC-GLUCOSE METER (BEAKER) 178 mg/dL 70-110 TESTED AT [address] (test ppfw=5765) [place] [address] POCT-GLUCOSE [id number] 06:53:00 Test Item Value Reference Range Comments POC-GLUCOSE METER (BEAKER) 167 mg/dL 70-110 TESTED AT [address] (test seiv=7410) [place] [address] [id number] 04:48:00 Test Item Value Reference Range Comments BLOOD UREA NITROGEN (BEAKER) (test wiat=425) 36 mg/dL 7-21 [id number] 04:48:00 Test Item Value Reference Range Comments SODIUM (BEAKER) (test nena=444) 139 meq/L 136-145 POTASSIUM (BEAKER) (test qumc=276) 5.2 meq/L 3.5-5.1 CHLORIDE (BEAKER) (test zffb=666) 109 meq/L 98-107 CO2 (BEAKER) (test vcmh=884) 23 meq/L 22-29 [id number] 04:48:00 Test Item Value Reference Range Comments CREATININE (BEAKER) (test 1.73 mg/dL 0.57-1.25 rkdf=550) EGFR (BEAKER) (test 30 mL/min/1.73 sq m ESTIMATED GFR IS NOT wvsu=8754) ACCURATE CREATININE CLEARANCE IN PREDICTING GLOMERULAR FILTRATION RATE. ESTIMATED GFR IS NOT APPLICABLE FOR DIALYSIS PATIENTS. CBC (HEMOGRAM ONLY)2017-05-13 04:33:00 Test Item Value Reference Range Comments WHITE BLOOD CELL COUNT (BEAKER) (test jvxq=810) 10.2 K/ L 3.5-10.5 RED BLOOD CELL COUNT (BEAKER) (test eqwy=870) 4.54 M/ L 3.93-5.22 HEMOGLOBIN (BEAKER) (test oshz=631) 11.4 GM/DL 11.2-15.7 HEMATOCRIT (BEAKER) (test gqib=616) 37.6 % 34.1-44.9 MEAN CORPUSCULAR VOLUME (BEAKER) (test bbjd=010) 82.8 fL 79.4-94.8 MEAN CORPUSCULAR HEMOGLOBIN (BEAKER) (test 25.1 pg 25.6-32.2 apls=596) MEAN CORPUSCULAR HEMOGLOBIN CONC (BEAKER) (test 30.3 GM/DL 32.2-35.5 jxmo=361) RED CELL DISTRIBUTION WIDTH (BEAKER) (test 14.7 % 11.7-14.4 gaee=065) PLATELET COUNT (BEAKER) (test denj=617) 194 K/CU MM 150-450 MEAN PLATELET VOLUME (BEAKER) (test buzv=156) 10.9 fL 9.4-12.3 NUCLEATED RED BLOOD CELLS (BEAKER) (test 0 /100 WBC 0-0 jydw=902) [id number] 23:29:00 Test Item Value Reference Range Comments ACTIVATED CLOTTING TIME 136 sec TESTED AT [address] (BEAKER) (test qsar=635) [facility] [address] [id number] 20:13:00 Test Item Value Reference Range Comments ACTIVATED CLOTTING TIME 175 sec TESTED AT [address] (BEAKER) (test vltu=874) [place] [address] [id number] 18:36:00 Test Item Value Reference Range Comments ACTIVATED CLOTTING TIME 202 sec TESTED AT [place] [address] ADDIS (BEAKER) (test naff=874) [place] [address] [id number] 18:03:00 Test Item Value Reference Range Comments ACTIVATED CLOTTING TIME 208 sec TESTED AT [place] [address] ADDIS (BEAKER) (test doxi=051) [place] [address] BASIC METABOLIC [id number] 11:57:00 Test Item Value Reference Range Comments SODIUM (BEAKER) (test 139 meq/L 136-145 muqe=341) POTASSIUM (BEAKER) (test 4.9 meq/L 3.5-5.1 eifa=723) CHLORIDE (BEAKER) (test 107 meq/L 98-107 nhsc=937) CO2 (BEAKER) (test 27 meq/L 22-29 moau=281) BLOOD UREA NITROGEN 36 mg/dL 7-21 (BEAKER) (test pivx=212) CREATININE (BEAKER) (test 1.60 mg/dL 0.57-1.25 csec=228) GLUCOSE RANDOM (BEAKER) 187 mg/dL 70-105 (test irhg=307) CALCIUM (BEAKER) (test 8.6 mg/dL 8.4-10.2 sawr=284) EGFR (BEAKER) (test 33 mL/min/1.73 sq m ESTIMATED GFR IS NOT fjxh=1010) ACCURATE CREATININE CLEARANCE IN PREDICTING GLOMERULAR FILTRATION RATE. ESTIMATED GFR IS NOT APPLICABLE FOR DIALYSIS PATIENTS. PROTHROMBIN [id number] 11:15:00 Test Item Value Reference Range Comments PROTIME (BEAKER) (test ijwh=298) 14.8 seconds 11.7-14.7 INR (BEAKER) (test wedi=446) 1.2 <=5.9 RECOMMENDED COUMADIN/WARFARIN INR THERAPY RANGESSTANDARD DOSE: 2.0 - 3.0 Includes: PROPHYLAXIS forvenous thrombosis, systemic embolization; TREATMENT for venous thrombosis and/or pulmonary embolus.HIGH RISK: Target INR is 2.5-3.5 for patients with mechanical heart valves.Within 24 hours, if on CoumadinCBC W/ PLT COUNT & AUTO [id number] 11:01:00 Test Item Value Reference Range Comments WHITE BLOOD CELL COUNT (BEAKER) (test geci=175) 9.1 K/ L 3.5-10.5 RED BLOOD CELL COUNT (BEAKER) (test lreg=171) 4.62 M/ L 3.93-5.22 HEMOGLOBIN (BEAKER) (test uxwf=918) 11.7 GM/DL 11.2-15.7 HEMATOCRIT (BEAKER) (test eoni=206) 38.0 % 34.1-44.9 MEAN CORPUSCULAR VOLUME (BEAKER) (test bgha=827) 82.3 fL 79.4-94.8 MEAN CORPUSCULAR HEMOGLOBIN (BEAKER) (test 25.3 pg 25.6-32.2 zyhv=758) MEAN CORPUSCULAR HEMOGLOBIN CONC (BEAKER) (test 30.8 GM/DL 32.2-35.5 vjpa=768) RED CELL DISTRIBUTION WIDTH (BEAKER) (test 14.5 % 11.7-14.4 byse=465) PLATELET COUNT (BEAKER) (test nszu=149) 205 K/CU MM 150-450 MEAN PLATELET VOLUME (BEAKER) (test kcso=304) 10.6 fL 9.4-12.3 NUCLEATED RED BLOOD CELLS (BEAKER) (test 0 /100 WBC 0-0 lsfb=388) NEUTROPHILS RELATIVE PERCENT (BEAKER) (test 59 % jpky=307) LYMPHOCYTES RELATIVE PERCENT (BEAKER) (test 32 % omsy=356) MONOCYTES RELATIVE PERCENT (BEAKER) (test 5 % ypxp=692) EOSINOPHILS RELATIVE PERCENT (BEAKER) (test 3 % dbti=540) BASOPHILS RELATIVE PERCENT (BEAKER) (test 1 % tlrz=679) NEUTROPHILS ABSOLUTE COUNT (BEAKER) (test 5.36 K/ L 1.56-6.13 quka=502) LYMPHOCYTES ABSOLUTE COUNT (BEAKER) (test 2.86 K/ L 1.18-3.74 tlwh=938) MONOCYTES ABSOLUTE COUNT (BEAKER) (test 0.48 K/ L 0.24-0.36 foke=886) EOSINOPHILS ABSOLUTE COUNT (BEAKER) (test 0.27 K/ L 0.04-0.36 dzlw=010) BASOPHILS ABSOLUTE COUNT (BEAKER) (test 0.08 K/ L 0.01-0.08 ettv=487) IMMATURE GRANULOCYTES-RELATIVE PERCENT (BEAKER) 0 % 0-1 (test nlrj=1925) POCT-GLUCOSE [id number] 12:35:00 Test Item Value Reference Range Comments POC-GLUCOSE METER (BEAKER) 249 mg/dL 70-110 TESTED AT [address] (test fuvg=4212) [place] [address] POCT-GLUCOSE [id number] 09:10:00 Test Item Value Reference Range Comments POC-GLUCOSE METER (BEAKER) 155 mg/dL 70-110 TESTED AT [address] (test rgkh=5779) [place] [id number] BASIC METABOLIC [id number] 05:39:00 Test Item Value Reference Range Comments SODIUM (BEAKER) (test 138 meq/L 136-145 qola=037) POTASSIUM (BEAKER) (test 4.7 meq/L 3.5-5.1 bcdm=546) CHLORIDE (BEAKER) (test 107 meq/L 98-107 ltee=956) CO2 (BEAKER) (test 25 meq/L 22-29 cirw=673) BLOOD UREA NITROGEN 36 mg/dL 7-21 (BEAKER) (test geol=342) CREATININE (BEAKER) (test 1.75 mg/dL 0.57-1.25 qbzb=709) GLUCOSE RANDOM (BEAKER) 126 mg/dL 70-105 (test rzoo=502) CALCIUM (BEAKER) (test 8.2 mg/dL 8.4-10.2 jamf=253) EGFR (BEAKER) (test 29 mL/min/1.73 sq m ESTIMATED GFR IS NOT siqp=8062) ACCURATE CREATININE CLEARANCE IN PREDICTING GLOMERULAR FILTRATION RATE. ESTIMATED GFR IS NOT APPLICABLE FOR DIALYSIS PATIENTS. [id number] 05:27:00 Test Item Value Reference Range Comments PHOSPHORUS (BEAKER) (test usfu=484) 5.0 mg/dL 2.3-4.7 [id number] 05:27:00 Test Item Value Reference Range Comments MAGNESIUM (BEAKER) (test oxym=500) 1.6 mg/dL 1.6-2.6 POCT-GLUCOSE [id number] 05:25:00 Test Item Value Reference Range Comments POC-GLUCOSE METER (BEAKER) 144 mg/dL 70-110 TESTED AT [address] (test agwh=6379) [place] [address] PROTHROMBIN [id number] 04:58:00 Test Item Value Reference Range Comments PROTIME (BEAKER) (test wauf=714) 14.2 seconds 11.7-14.7 INR (BEAKER) (test hraa=195) 1.1 <=5.9 RECOMMENDED COUMADIN/WARFARIN INR THERAPY RANGESSTANDARD DOSE: 2.0 - 3.0 Includes: PROPHYLAXIS forvenous thrombosis, systemic embolization; TREATMENT for venous thrombosis and/or pulmonary embolus.HIGH RISK: Target INR is 2.5-3.5 for patients with mechanical heart valves.POCT-GLUCOSE [id number] 23:55:00 Test Item Value Reference Range Comments POC-GLUCOSE METER (BEAKER) 86 mg/dL 70-110 TESTED AT [address] (test mvhh=8626) [place] [address] B-TYPE NATRIURETIC FACTOR (BNP)2017-04-22 18:13:00 Test Item Value Reference Range Comments B-TYPE NATRIURETIC PEPTIDE (BEAKER) (test 1203 pg/mL 0-100 tzig=762) POCT-GLUCOSE [id number] 17:36:00 Test Item Value Reference Range Comments POC-GLUCOSE METER (BEAKER) 259 mg/dL 70-110 TESTED AT [address] (test ntjm=0038) [place] [address] HEMOGLOBIN [id number] 14:24:00 Test Item Value Reference Range Comments HEMOGLOBIN A1C (BEAKER) (test etrx=325) 10.5 % 4.3-6.1 POCT-GLUCOSE [id number] 12:34:00 Test Item Value Reference Range Comments POC-GLUCOSE METER (BEAKER) 207 mg/dL 70-110 TESTED AT [address] (test tlvs=1869) [place] [address] [id number] 07:53:00 Test Item Value Reference Range Comments PHOSPHORUS (BEAKER) (test bcan=762) 3.9 mg/dL 2.3-4.7 [id number] 07:53:00 Test Item Value Reference Range Comments MAGNESIUM (BEAKER) (test ldtp=129) 1.6 mg/dL 1.6-2.6 BASIC METABOLIC [id number] 07:53:00 Test Item Value Reference Range Comments SODIUM (BEAKER) (test 139 meq/L 136-145 jhpo=531) POTASSIUM (BEAKER) (test 4.5 meq/L 3.5-5.1 edub=645) CHLORIDE (BEAKER) (test 108 meq/L 98-107 bygf=388) CO2 (BEAKER) (test 25 meq/L 22-29 baau=399) BLOOD UREA NITROGEN 29 mg/dL 7-21 (BEAKER) (test gogi=754) CREATININE (BEAKER) (test 1.54 mg/dL 0.57-1.25 bahc=882) GLUCOSE RANDOM (BEAKER) 211 mg/dL 70-105 (test rboj=976) CALCIUM (BEAKER) (test 8.5 mg/dL 8.4-10.2 kpld=083) EGFR (BEAKER) (test 34 mL/min/1.73 sq m ESTIMATED GFR IS NOT ishx=0918) ACCURATE CREATININE CLEARANCE IN PREDICTING GLOMERULAR FILTRATION RATE. ESTIMATED GFR IS NOT APPLICABLE FOR DIALYSIS PATIENTS. TROPONIN [id number] 07:29:00 Test Item Value Reference Range Comments TROPONIN I (BEAKER) (test lgzk=684) 0.05 ng/mL 0.00-0.03 Troponin I (TnI) levels [...] acidosis, acute neurological disease, and persistent tachyarrhythmia.PROTHROMBIN [id number] 07:01:00 Test Item Value Reference Range Comments PROTIME (BEAKER) (test sqlm=145) 13.8 seconds 11.7-14.7 INR (BEAKER) (test vymi=025) 1.1 <=5.9 RECOMMENDED COUMADIN/WARFARIN INR THERAPY RANGESSTANDARD DOSE: 2.0 - 3.0 Includes: PROPHYLAXIS forvenous thrombosis, systemic embolization; TREATMENT for venous thrombosis and/or pulmonary embolus.HIGH RISK: Target INR is 2.5-3.5 for patients with mechanical heart valves.POCT-GLUCOSE [id number] 06:28:00 Test Item Value Reference Range Comments POC-GLUCOSE METER (BEAKER) 198 mg/dL 70-110 TESTED AT [address] (test cgvi=8990) [place] [id number] CREATINE KINASE (CK), TOTAL AND [id number] 00:49:00 Test Item Value Reference Range Comments CREATINE KINASE TOTAL (BEAKER) (test fnal=167) 69 U/L 29-200 CREATINE KINASE-MB (BEAKER) (test xxrk=241) 4.3 ng/mL 0.0-6.6 CREATINE KINASE-MB INDEX (BEAKER) (test hwfb=174) 6.2 % CK-MB Reference Range:<6.7 Normal6.7-10.0 Borderline>10.0 AbnormalTROPONIN [id number] 00:49:00 Test Item Value Reference Range Comments TROPONIN I (BEAKER) (test wtxz=060) 0.05 ng/mL 0.00-0.03 Troponin I (TnI) levels [...] acidosis, acute neurological disease, and persistent tachyarrhythmia.POCT-GLUCOSE [id number] 20:44:00 Test Item Value Reference Range Comments POC-GLUCOSE METER (BEAKER) 269 mg/dL 70-110 TESTED AT [address] (test ehyk=2471) [place] [id number]
== END 2019-01-28 14:32 | disposition home or self-care (01) ==
LOC: ER 20:48 → ERHOLD 23:21 → 4TH 01-28 00:10
PROVIDERS: ADMIT Family Medicine; ATTEND Family Medicine
DX: I50.43 Acute on chronic combined systolic (congestive) and diastolic (congestive) heart failure (principal); I25.10 Atherosclerotic heart disease of native coronary artery without angina pectoris; E11.22 Type 2 diabetes mellitus with diabetic chronic kidney disease; I13.0 Hypertensive heart and chronic kidney disease with heart failure and stage 1 through stage 4 chronic kidney disease, or unspecified chronic kidney disease; N18.4 Chronic kidney disease, stage 4 (severe); M54.5 Low back pain; I73.9 Peripheral vascular disease, unspecified; I16.0 Hypertensive urgency; E78.5 Hyperlipidemia, unspecified; E11.40 Type 2 diabetes mellitus with diabetic neuropathy, unspecified; K21.9 Gastro-esophageal reflux disease without esophagitis; E66.01 Morbid (severe) obesity due to excess calories; Z68.31 Body mass index [BMI] 31.0-31.9, adult; Z91.14 Patient's other noncompliance with medication regimen; Z95.1 Presence of aortocoronary bypass graft
CPT/HCPCS: 93005; 87040 ×2; 87088; 85025 ×2; 87086; 80048 ×2; 36415; 83735 ×2; 85610; 80061; 82947 ×3; 80076; 84443; 84484; 84439; 83880; 71045; 71046; 94640 ×2; 96375; 96374; 99285; J1940 ×2; J1644; J1815; J7605; G0378 ×2; 81003; 81015

== ENCOUNTER 2019-02-17 15:08 | Inpatient (IN) | payer MEDICAID ==
--- OUTSIDE RECORDS SUMMARY | 2019-02-17 15:18 | XMS REPORT ---
:1955 Author Organization [facility] Address [address] [place] [address] [address] [place] [address] Care Team Providers Name Role Phone CORINA [...] (BEAKER) (test 220 mg/dL 70-[address] [facility] [address] [facility] jfsd=2299) [facility] [address] BASIC METABOLIC [id number] 15:47:00 Test Item Value Reference Range Comments SODIUM (BEAKER) (test 135 meq/L 136-145 oqug=933) POTASSIUM (BEAKER) (test 4.8 meq/L 3.5-5.1 gzok=856) CHLORIDE (BEAKER) (test 102 meq/L 98-107 ogkm=982) CO2 (BEAKER) (test 25 meq/L 22-29 hsuz=893) BLOOD UREA NITROGEN 51 mg/dL 7-21 (BEAKER) (test ovys=893) CREATININE (BEAKER) (test 1.99 mg/dL 0.57-1.25 zdms=876) GLUCOSE RANDOM (BEAKER) 201 mg/dL 70-105 (test dnsd=787) CALCIUM (BEAKER) (test 8.8 mg/dL 8.4-10.2 htqv=910) EGFR (BEAKER) (test 25 mL/min/1.73 sq m ESTIMATED GFR IS NOT mgrr=0114) ACCURATE CREATININE CLEARANCE IN PREDICTING GLOMERULAR FILTRATION RATE. ESTIMATED GFR IS NOT APPLICABLE FOR DIALYSIS PATIENTS. POCT-GLUCOSE [id number] 11:30:00 Test Item Value Reference Range Comments POC-GLUCOSE METER (BEAKER) 268 mg/dL 70-[address] [facility] [address] [facility] (test ivaq=5373) [facility] [address] POCT-GLUCOSE [id number] 07:08:00 Test Item Value Reference Range Comments POC-GLUCOSE METER (BEAKER) 208 mg/dL 70-110 TESTED AT [place] [id number] [facility] (test zifn=3341) [facility] [address] CALCIUM, [id number] 06:47:00 Test Item Value Reference Range Comments CALCIUM IONIZED (BEAKER) (test kzcp=510) 1.11 mmol/L 1.12-1.27 PH, BLOOD (BEAKER) (test rjza=4022) 7.40 BASIC METABOLIC [id number] 06:40:00 Test Item Value Reference Range Comments SODIUM (BEAKER) (test 134 meq/L 136-145 zjez=310) POTASSIUM (BEAKER) (test 4.9 meq/L 3.5-5.1 vyjs=842) CHLORIDE (BEAKER) (test 103 meq/L 98-107 vkoh=964) CO2 (BEAKER) (test 24 meq/L 22-29 qgex=308) BLOOD UREA NITROGEN 53 mg/dL 7-21 (BEAKER) (test nizk=940) CREATININE (BEAKER) (test 2.02 mg/dL 0.57-1.25 ddce=585) GLUCOSE RANDOM (BEAKER) 186 mg/dL 70-105 (test rizb=790) CALCIUM (BEAKER) (test 9.1 mg/dL 8.4-10.2 dzka=626) EGFR (BEAKER) (test 25 mL/min/1.73 sq m ESTIMATED GFR IS NOT akdv=5791) ACCURATE CREATININE CLEARANCE IN PREDICTING GLOMERULAR FILTRATION RATE. ESTIMATED GFR IS NOT APPLICABLE FOR DIALYSIS PATIENTS. [id number] 06:33:00 Test Item Value Reference Range Comments PHOSPHORUS (BEAKER) (test dgur=425) 5.1 mg/dL 2.3-4.7 [id number] 06:33:00 Test Item Value Reference Range Comments MAGNESIUM (BEAKER) (test vgiv=747) 2.0 mg/dL 1.6-2.6 LACTIC ACID, VENOUS, WHOLE [id number] 06:02:00 Test Item Value Reference Range Comments LACTATE BLOOD VENOUS (2) (BEAKER) (test 0.8 mmol/L 0.5-2.2 kptz=2732) Effective 08/02/2015: Units/Reference Range ChangeNew: 0.5-2.2 mmol/L Previous: 5 -20 mg/dLCBC W/PLT COUNT & AUTO [id number] 05:54:00 Test Item Value Reference Range Comments WHITE BLOOD CELL COUNT (BEAKER) (test vlbs=006) 7.1 K/ L 3.5-10.5 RED BLOOD CELL COUNT (BEAKER) (test wenc=924) 3.68 M/ L 3.93-5.22 HEMOGLOBIN (BEAKER) (test tvck=632) 9.0 GM/DL 11.2-15.7 HEMATOCRIT (BEAKER) (test xock=548) 29.6 % 34.1-44.9 MEAN CORPUSCULAR VOLUME (BEAKER) (test apbb=455) 80.4 fL 79.4-94.8 MEAN CORPUSCULAR HEMOGLOBIN (BEAKER) (test 24.5 pg 25.6-32.2 igab=939) MEAN CORPUSCULAR HEMOGLOBIN CONC (BEAKER) (test 30.4 GM/DL 32.2-35.5 itxw=069) RED CELL DISTRIBUTION WIDTH (BEAKER) (test 16.5 % 11.7-14.4 cpyv=484) PLATELET COUNT (BEAKER) (test debj=714) 215 K/CU MM 150-450 MEAN PLATELET VOLUME (BEAKER) (test ulvd=561) 9.5 fL 9.4-12.3 NUCLEATED RED BLOOD CELLS (BEAKER) (test 0 /100 WBC 0-0 cdcr=958) NEUTROPHILS RELATIVE PERCENT (BEAKER) (test 42 % klby=606) LYMPHOCYTES RELATIVE PERCENT (BEAKER) (test 46 % lcwi=229) MONOCYTES RELATIVE PERCENT (BEAKER) (test 6 % ykhe=560) EOSINOPHILS RELATIVE PERCENT (BEAKER) (test 5 % fqib=510) BASOPHILS RELATIVE PERCENT (BEAKER) (test 1 % rplw=645) NEUTROPHILS ABSOLUTE COUNT (BEAKER) (test 2.96 K/ L 1.56-6.13 vpcs=704) LYMPHOCYTES ABSOLUTE COUNT (BEAKER) (test 3.27 K/ L 1.18-3.74 vzss=260) MONOCYTES ABSOLUTE COUNT (BEAKER) (test 0.41 K/ L 0.24-0.36 nsqn=441) EOSINOPHILS ABSOLUTE COUNT (BEAKER) (test 0.34 K/ L 0.04-0.36 jlix=171) BASOPHILS ABSOLUTE COUNT (BEAKER) (test 0.08 K/ L 0.01-0.08 yawg=662) IMMATURE GRANULOCYTES-RELATIVE PERCENT (BEAKER) 0 % 0-1 (test pvbi=9874) POCT-GLUCOSE [id number] 21:30:00 Test Item Value Reference Range Comments POC-GLUCOSE METER (BEAKER) 248 mg/dL 70-110 TESTED AT [address] (test dxto=4535) [facility] [address] RAD, [id number] 21:22:00Reason for exam:->fall, tailbone painFINAL REPORT RAD, [...] MDReport Verified Date/Time: 2017 21:22:03 Reading Location: [address] Reading Room POCT- GLUCOSE [id number] 17:37:00 Test Item Value Reference Range Comments POC-GLUCOSE METER (BEAKER) 222 mg/dL 70-110 TESTED AT [address] (test zzzh=6718) [facility] [address] POCT-GLUCOSE [id number] 13:55:00 Test Item Value Reference Range Comments POC-GLUCOSE METER (BEAKER) 194 mg/dL 70-[address] [facility] [address] [facility] (test ivdq=3533) [facility] [address] POCT-GLUCOSE [id number] 12:34:00 Test Item Value Reference Range Comments POC-GLUCOSE METER (BEAKER) 229 mg/dL 70-110 TESTED AT [address] (test gjrz=2248) [facility] [address] POCT-GLUCOSE [id number] 08:00:00 Test Item Value Reference Range Comments POC-GLUCOSE METER (BEAKER) 159 mg/dL 70-110 TESTED AT [address] (test eiud=6771) [facility] [address] CALCIUM, [id number] 06:00:00 Test Item Value Reference Range Comments CALCIUM IONIZED (BEAKER) (test uksv=915) 1.05 mmol/L 1.12-1.27 PH, BLOOD (BEAKER) (test regb=8813) 7.45 [id number] 05:59:00 Test Item Value Reference Range Comments PHOSPHORUS (BEAKER) (test hwvl=955) 4.8 mg/dL 2.3-4.7 [id number] 05:59:00 Test Item Value Reference Range Comments MAGNESIUM (BEAKER) (test jwog=434) 2.0 mg/dL 1.6-2.6 BASIC METABOLIC [id number] 05:59:00 Test Item Value Reference Range Comments SODIUM (BEAKER) (test 134 meq/L 136-145 xabn=276) POTASSIUM (BEAKER) (test 4.4 meq/L 3.5-5.1 brzl=899) CHLORIDE (BEAKER) (test 103 meq/L 98-107 czco=173) CO2 (BEAKER) (test 23 meq/L 22-29 dqir=033) BLOOD UREA NITROGEN 49 mg/dL 7-21 (BEAKER) (test yunn=306) CREATININE (BEAKER) (test 1.69 mg/dL 0.57-1.25 xgfp=561) GLUCOSE RANDOM (BEAKER) 138 mg/dL 70-105 (test mbei=918) CALCIUM (BEAKER) (test 8.7 mg/dL 8.4-10.2 tshf=284) EGFR (BEAKER) (test 31 mL/min/1.73 sq m ESTIMATED GFR IS NOT fdwg=1064) ACCURATE CREATININE CLEARANCE IN PREDICTING GLOMERULAR FILTRATION RATE. ESTIMATED GFR IS NOT APPLICABLE FOR DIALYSIS PATIENTS. CREATINE KINASE (CK)2017-09-04 05:59:00 Test Item Value Reference Range Comments CREATINE KINASE TOTAL (BEAKER) (test orvh=241) 45 U/L 29-200 CBC W/PLT COUNT & AUTO [id number] 05:32:00 Test Item Value Reference Range Comments WHITE BLOOD CELL COUNT (BEAKER) (test eich=619) 6.1 K/ L 3.5-10.5 RED BLOOD CELL COUNT (BEAKER) (test putv=013) 3.69 M/ L 3.93-5.22 HEMOGLOBIN (BEAKER) (test ulyw=947) 8.8 GM/DL 11.2-15.7 HEMATOCRIT (BEAKER) (test ifff=205) 29.3 % 34.1-44.9 MEAN CORPUSCULAR VOLUME (BEAKER) (test soag=081) 79.4 fL 79.4-94.8 MEAN CORPUSCULAR HEMOGLOBIN (BEAKER) (test 23.8 pg 25.6-32.2 tbpd=722) MEAN CORPUSCULAR HEMOGLOBIN CONC (BEAKER) (test 30.0 GM/DL 32.2-35.5 bztg=526) RED CELL DISTRIBUTION WIDTH (BEAKER) (test 16.3 % 11.7-14.4 iihn=840) PLATELET COUNT (BEAKER) (test xpaa=621) 219 K/CU MM 150-450 MEAN PLATELET VOLUME (BEAKER) (test yrdi=294) 9.4 fL 9.4-12.3 NUCLEATED RED BLOOD CELLS (BEAKER) (test 0 /100 WBC 0-0 apob=365) NEUTROPHILS RELATIVE PERCENT (BEAKER) (test 44 % axqa=986) LYMPHOCYTES RELATIVE PERCENT (BEAKER) (test 43 % cdxr=312) MONOCYTES RELATIVE PERCENT (BEAKER) (test 6 % yqse=528) EOSINOPHILS RELATIVE PERCENT (BEAKER) (test 6 % xtgx=290) BASOPHILS RELATIVE PERCENT (BEAKER) (test 1 % pzfp=214) NEUTROPHILS ABSOLUTE COUNT (BEAKER) (test 2.67 K/ L 1.56-6.13 pejb=756) LYMPHOCYTES ABSOLUTE COUNT (BEAKER) (test 2.66 K/ L 1.18-3.74 txet=937) MONOCYTES ABSOLUTE COUNT (BEAKER) (test 0.38 K/ L 0.24-0.36 exws=925) EOSINOPHILS ABSOLUTE COUNT (BEAKER) (test 0.37 K/ L 0.04-0.36 bwql=159) BASOPHILS ABSOLUTE COUNT (BEAKER) (test 0.05 K/ L 0.01-0.08 coze=148) IMMATURE GRANULOCYTES-RELATIVE PERCENT (BEAKER) 0 % 0-1 (test nbtf=8493) POCT-GLUCOSE [id number] 20:36:00 Test Item Value Reference Range Comments POC-GLUCOSE METER (BEAKER) 211 mg/dL 70-110 TESTED AT [address] (test addt=4083) [place] [address] CREATININE, RANDOM [id number] 19:55:00 Test Item Value Reference Range Comments CREATININE URINE (BEAKER) (test pvzd=266) 16.1 mg/dL Reference Range: No NormalsPROTEIN, RANDOM [id number] 19:55:00 Test Item Value Reference Range Comments PROTEIN, URINE (BEAKER) (test xyxr=1743) 102 mg/dL 0-14 POCT-GLUCOSE [id number] 18:04:00 Test Item Value Reference Range Comments POC-GLUCOSE METER (BEAKER) 177 mg/dL 70-110 TESTED AT [address] (test otfc=6304) [place] [address] POCT-GLUCOSE [id number] 11:59:00 Test Item Value Reference Range Comments POC-GLUCOSE METER (BEAKER) 244 mg/dL 70-110 TESTED AT [address] (test ymih=6338) [place] [address] POCT-GLUCOSE [id number] 07:53:00 Test Item Value Reference Range Comments POC-GLUCOSE METER (BEAKER) 160 mg/dL 70-110 TESTED AT [address] (test godg=1300) [place] [address] BASIC METABOLIC [id number] 05:29:00 Test Item Value Reference Range Comments SODIUM (BEAKER) (test 136 meq/L 136-145 fzcg=662) POTASSIUM (BEAKER) (test 4.5 meq/L 3.5-5.1 tyag=245) CHLORIDE (BEAKER) (test 105 meq/L 98-107 qyjn=284) CO2 (BEAKER) (test 24 meq/L 22-29 miea=114) BLOOD UREA NITROGEN 51 mg/dL 7-21 (BEAKER) (test crkw=320) CREATININE (BEAKER) (test 1.76 mg/dL 0.57-1.25 xyvp=980) GLUCOSE RANDOM (BEAKER) 149 mg/dL 70-105 (test bcqs=809) CALCIUM (BEAKER) (test 8.9 mg/dL 8.4-10.2 xrcd=968) EGFR (BEAKER) (test 29 mL/min/1.73 sq m ESTIMATED GFR IS NOT rbtu=7069) ACCURATE CREATININE CLEARANCE IN PREDICTING GLOMERULAR FILTRATION RATE. ESTIMATED GFR IS NOT APPLICABLE FOR DIALYSIS PATIENTS. [id number] 05:21:00 Test Item Value Reference Range Comments MAGNESIUM (BEAKER) (test nhkx=275) 2.1 mg/dL 1.6-2.6 HEPATIC FUNCTION [id number] 05:21:00 Test Item Value Reference Range Comments TOTAL PROTEIN (BEAKER) (test tdae=619) 6.8 gm/dL 6.0-8.3 ALBUMIN (BEAKER) (test yets=6677) 2.9 g/dL 3.5-5.0 BILIRUBIN TOTAL (BEAKER) (test mssc=085) 0.5 mg/dL 0.2-1.2 BILIRUBIN DIRECT (BEAKER) (test nwrn=051) 0.2 mg/dL 0.1-0.5 ALKALINE PHOSPHATASE (BEAKER) (test mjij=025) 173 U/L 40-150 AST (SGOT) (BEAKER) (test dzzu=594) 25 U/L 5-34 ALT (SGPT) (BEAKER) (test zrzt=225) 23 U/L 6-55 TROPONIN [id number] 05:18:00 Test Item Value Reference Range Comments TROPONIN I (BEAKER) (test omhz=756) 0.05 ng/mL 0.00-0.03 Troponin I (TnI) levels [...] and persistent tachyarrhythmia.CBC W/PLT COUNT & AUTO [id number] 04:59:00 Test Item Value Reference Range Comments WHITE BLOOD CELL COUNT (BEAKER) (test xxrv=552) 6.9 K/ L 3.5-10.5 RED BLOOD CELL COUNT (BEAKER) (test jqvb=371) 3.75 M/ L 3.93-5.22 HEMOGLOBIN (BEAKER) (test cqxl=744) 8.9 GM/DL 11.2-15.7 HEMATOCRIT (BEAKER) (test bwsy=298) 29.7 % 34.1-44.9 MEAN CORPUSCULAR VOLUME (BEAKER) (test lzyk=495) 79.2 fL 79.4-94.8 MEAN CORPUSCULAR HEMOGLOBIN (BEAKER) (test 23.7 pg 25.6-32.2 xzwp=874) MEAN CORPUSCULAR HEMOGLOBIN CONC (BEAKER) (test 30.0 GM/DL 32.2-35.5 asmu=327) RED CELL DISTRIBUTION WIDTH (BEAKER) (test 16.2 % 11.7-14.4 fbmi=393) PLATELET COUNT (BEAKER) (test pytt=040) 240 K/CU MM 150-450 MEAN PLATELET VOLUME (BEAKER) (test mazf=839) 9.6 fL 9.4-12.3 NUCLEATED RED BLOOD CELLS (BEAKER) (test 0 /100 WBC 0-0 cdfq=627) NEUTROPHILS RELATIVE PERCENT (BEAKER) (test 48 % onhi=420) LYMPHOCYTES RELATIVE PERCENT (BEAKER) (test 40 % wyzb=161) MONOCYTES RELATIVE PERCENT (BEAKER) (test 6 % pimf=978) EOSINOPHILS RELATIVE PERCENT (BEAKER) (test 5 % toel=216) BASOPHILS RELATIVE PERCENT (BEAKER) (test 1 % mlmk=627) NEUTROPHILS ABSOLUTE COUNT (BEAKER) (test 3.32 K/ L 1.56-6.13 jvvd=322) LYMPHOCYTES ABSOLUTE COUNT (BEAKER) (test 2.76 K/ L 1.18-3.74 hqwq=377) MONOCYTES ABSOLUTE COUNT (BEAKER) (test 0.39 K/ L 0.24-0.36 qpkq=241) EOSINOPHILS ABSOLUTE COUNT (BEAKER) (test 0.36 K/ L 0.04-0.36 cros=920) BASOPHILS ABSOLUTE COUNT (BEAKER) (test 0.06 K/ L 0.01-0.08 jmtr=997) IMMATURE GRANULOCYTES-RELATIVE PERCENT (BEAKER) 0 % 0-1 (test axvw=8080) TROPONIN [id number] 23:40:00 Test Item Value Reference Range Comments TROPONIN I (BEAKER) (test ywlu=662) 0.04 ng/mL 0.00-0.03 Troponin I (TnI) levels [...] acidosis, acute neurological disease, and persistent tachyarrhythmia.POCT-GLUCOSE [id number] 22:51:00 Test Item Value Reference Range Comments POC-GLUCOSE METER (BEAKER) 214 mg/dL 70-110 TESTED AT [address] (test mctn=1148) [facility] [address] RAD, CHEST, 1 VIEW, NON [id number] 21:42:00Reason for exam:->CHEST PAINShould this be performed at the bedside?->YesFINAL REPORT RAD, CHEST, 1 VIEW, NON DEPT INDICATION: CHEST PAIN COMPARISON: Chest x -ray 4 weeks ago TECHNIQUE: Single frontal view of the chest. IMPRESSION: Cardiomegaly.Mild pulmonary interstitial edema with a small right-sided effusion.No acute osseous abnormality. Signed: Dario Abraham MDReport Verified Date/Time: 09/02/2017 21:42:11 Reading Location: [address] Reading Room CREATININE, RANDOM [id number] 21:10:00 Test Item Value Reference Range Comments CREATININE URINE (BEAKER) (test ipat=310) 35.5 mg/dL Reference Range: No NormalsSODIUM, RANDOM [id number] 21:10:00 Test Item Value Reference Range Comments SODIUM URINE (BEAKER) (test ojrm=191) 80 meq/L Reference Range: No NormalsURINALYSIS W/ [id number] 20:59:00 Test Item Value Reference Range Comments COLOR (BEAKER) (test ersd=806) Light Yellow CLARITY (BEAKER) (test pspz=200) Clear SPECIFIC GRAVITY UA (BEAKER) (test dtdh=404) 1.008 1.001-1.035 PH UA (BEAKER) (test kyyo=387) 6.5 5.0-8.0 PROTEIN UA (BEAKER) (test mwvu=656) 200 mg/dL Negative GLUCOSE UA (BEAKER) (test eent=211) 70 mg/dL Negative KETONES UA (BEAKER) (test ldgr=250) Negative Negative BILIRUBIN UA (BEAKER) (test fnpf=437) Negative Negative BLOOD UA (BEAKER) (test zmvp=686) Negative Negative NITRITE UA (BEAKER) (test ahmh=668) Negative Negative LEUKOCYTE ESTERASE UA (BEAKER) (test fnjp=276) Negative Negative UROBILINOGEN UA (BEAKER) (test dgsm=639) 0.2 mg/dL 0.2-1.0 RBC UA (BEAKER) (test lynx=334) < /HPF WBC UA (BEAKER) (test oriu=304) 2 /HPF BACTERIA (BEAKER) (test zbbj=631) Occasional MUCUS (BEAKER) (test unte=1535) Rare SQUAMOUS EPITHELIAL (BEAKER) (test fqte=627) 2 /HPF HYALINE CASTS (BEAKER) (test xrvw=270) 7 /LPF SOURCE(BEAKER) (test oray=6221) BASIC METABOLIC [id number] 16:49:00 Test Item Value Reference Range Comments SODIUM (BEAKER) (test 134 meq/L 136-145 wjqn=914) POTASSIUM (BEAKER) (test 4.8 meq/L 3.5-5.1 juos=958) CHLORIDE (BEAKER) (test 101 meq/L 98-107 jvwx=905) CO2 (BEAKER) (test 26 meq/L 22-29 eepl=644) BLOOD UREA NITROGEN 53 mg/dL 7-21 (BEAKER) (test qjwo=960) CREATININE (BEAKER) (test 2.04 mg/dL 0.57-1.25 lbed=768) GLUCOSE RANDOM (BEAKER) 267 mg/dL 70-105 (test yetg=387) CALCIUM (BEAKER) (test 9.1 mg/dL 8.4-10.2 zzbc=758) EGFR (BEAKER) (test 25 mL/min/1.73 sq m ESTIMATED GFR IS NOT jccg=1975) ACCURATE CREATININE CLEARANCE IN PREDICTING GLOMERULAR FILTRATION RATE. ESTIMATED GFR IS NOT APPLICABLE FOR DIALYSIS PATIENTS. [id number] 16:38:00 Test Item Value Reference Range Comments PROTIME (BEAKER) (test gykf=416) 14.4 seconds 11.7-14.7 INR (BEAKER) (test frnp=700) 1.1 <=5.9 PARTIAL THROMBOPLASTIN TIME (BEAKER) (test 31.0 seconds 22.5-36.0 opio=385) RECOMMENDED COUMADIN/WARFARIN INR THERAPY RANGESSTANDARD DOSE: 2.0 - 3.0 Includes: PROPHYLAXIS forvenous thrombosis, systemic embolization; TREATMENT for venous thrombosis and/or pulmonary embolus.HIGH RISK: Target INR is 2.5-3.5 for patients with mechanical heart valves.CBC W/PLT COUNT & AUTO [id number] 16:26:00 Test Item Value Reference Range Comments WHITE BLOOD CELL COUNT (BEAKER) (test lakf=700) 6.3 K/ L 3.5-10.5 RED BLOOD CELL COUNT (BEAKER) (test fnnk=394) 4.22 M/ L 3.93-5.22 HEMOGLOBIN (BEAKER) (test wgzl=750) 10.1 GM/DL 11.2-15.7 HEMATOCRIT (BEAKER) (test oqsr=171) 33.4 % 34.1-44.9 MEAN CORPUSCULAR VOLUME (BEAKER) (test uxoh=674) 79.1 fL 79.4-94.8 MEAN CORPUSCULAR HEMOGLOBIN (BEAKER) (test 23.9 pg 25.6-32.2 fuhb=029) MEAN CORPUSCULAR HEMOGLOBIN CONC (BEAKER) (test 30.2 GM/DL 32.2-35.5 sowx=451) RED CELL DISTRIBUTION WIDTH (BEAKER) (test 16.1 % 11.7-14.4 oxyr=822) PLATELET COUNT (BEAKER) (test nrji=309) 252 K/CU MM 150-450 MEAN PLATELET VOLUME (BEAKER) (test hlcc=424) 9.5 fL 9.4-12.3 NUCLEATED RED BLOOD CELLS (BEAKER) (test 0 /100 WBC 0-0 ycnp=288) NEUTROPHILS RELATIVE PERCENT (BEAKER) (test 49 % obog=991) LYMPHOCYTES RELATIVE PERCENT (BEAKER) (test 38 % avwm=042) MONOCYTES RELATIVE PERCENT (BEAKER) (test 6 % vvgs=489) EOSINOPHILS RELATIVE PERCENT (BEAKER) (test 5 % hkai=757) BASOPHILS RELATIVE PERCENT (BEAKER) (test 1 % fhpf=066) NEUTROPHILS ABSOLUTE COUNT (BEAKER) (test 3.08 K/ L 1.56-6.13 nang=773) LYMPHOCYTES ABSOLUTE COUNT (BEAKER) (test 2.42 K/ L 1.18-3.74 spex=078) MONOCYTES ABSOLUTE COUNT (BEAKER) (test 0.40 K/ L 0.24-0.36 zmyn=855) EOSINOPHILS ABSOLUTE COUNT (BEAKER) (test 0.33 K/ L 0.04-0.36 coij=794) BASOPHILS ABSOLUTE COUNT (BEAKER) (test 0.07 K/ L 0.01-0.08 yafo=356) IMMATURE GRANULOCYTES-RELATIVE PERCENT (BEAKER) 0 % 0-1 (test uznc=2628) B-TYPE NATRIURETIC FACTOR (BNP)2017-09-02 13:47:00 Test Item Value Reference Range Comments B-TYPE NATRIURETIC PEPTIDE (BEAKER) (test 1942 pg/mL 0-100 zpqx=262) BASIC METABOLIC [id number] 13:43:00 Test Item Value Reference Range Comments SODIUM (BEAKER) (test 134 meq/L 136-145 fckb=798) POTASSIUM (BEAKER) (test 5.2 meq/L 3.5-5.1 dkbu=264) CHLORIDE (BEAKER) (test 101 meq/L 98-107 eqnl=177) CO2 (BEAKER) (test 25 meq/L 22-29 cmst=222) BLOOD UREA NITROGEN 55 mg/dL 7-21 (BEAKER) (test jmcv=952) CREATININE (BEAKER) (test 2.09 mg/dL 0.57-1.25 kvtp=826) GLUCOSE RANDOM (BEAKER) 317 mg/dL 70-105 (test nvdy=238) CALCIUM (BEAKER) (test 9.2 mg/dL 8.4-10.2 bdbv=893) EGFR (BEAKER) (test 24 mL/min/1.73 sq m ESTIMATED GFR IS NOT bbfc=4022) ACCURATE CREATININE CLEARANCE IN PREDICTING GLOMERULAR FILTRATION RATE. ESTIMATED GFR IS NOT APPLICABLE FOR DIALYSIS PATIENTS. POCT-GLUCOSE [id number] 12:44:00 Test Item Value Reference Range Comments POC-GLUCOSE METER (BEAKER) 283 mg/dL 70-[address] [facility] [address] [facility] (test arxq=2565) [facility] [address] CALCIUM, [id number] 07:03:00 Test Item Value Reference Range Comments CALCIUM IONIZED (BEAKER) (test zpgq=186) 1.02 mmol/L 1.12-1.27 PH, BLOOD (BEAKER) (test hpnx=1589) 7.43 [id number] 05:28:00 Test Item Value Reference Range Comments PHOSPHORUS (BEAKER) (test njvu=010) 3.3 mg/dL 2.3-4.7 [id number] 05:28:00 Test Item Value Reference Range Comments MAGNESIUM (BEAKER) (test vrto=483) 1.5 mg/dL 1.6-2.6 BASIC METABOLIC [id number] 05:28:00 Test Item Value Reference Range Comments SODIUM (BEAKER) (test 135 meq/L 136-145 qiql=315) POTASSIUM (BEAKER) (test 3.9 meq/L 3.5-5.1 cibc=712) CHLORIDE (BEAKER) (test 101 meq/L 98-107 bypg=149) CO2 (BEAKER) (test 27 meq/L 22-29 xrxt=454) BLOOD UREA NITROGEN 35 mg/dL 7-21 (BEAKER) (test opno=079) CREATININE (BEAKER) (test 1.37 mg/dL 0.57-1.25 lkoa=622) GLUCOSE RANDOM (BEAKER) 145 mg/dL 70-105 (test wsvc=607) CALCIUM (BEAKER) (test 8.3 mg/dL 8.4-10.2 jnhz=369) EGFR (BEAKER) (test 39 mL/min/1.73 sq m ESTIMATED GFR IS NOT glaq=0246) ACCURATE CREATININE CLEARANCE IN PREDICTING GLOMERULAR FILTRATION RATE. ESTIMATED GFR IS NOT APPLICABLE FOR DIALYSIS PATIENTS. CBC W/PLT COUNT & AUTO [id number] 05:06:00 Test Item Value Reference Range Comments WHITE BLOOD CELL COUNT (BEAKER) (test nnpr=366) 9.3 K/ L 3.5-10.5 RED BLOOD CELL COUNT (BEAKER) (test vcns=169) 3.64 M/ L 3.93-5.22 HEMOGLOBIN (BEAKER) (test qtvb=972) 8.7 GM/DL 11.2-15.7 HEMATOCRIT (BEAKER) (test pmbs=639) 28.5 % 34.1-44.9 MEAN CORPUSCULAR VOLUME (BEAKER) (test suzq=564) 78.3 fL 79.4-94.8 MEAN CORPUSCULAR HEMOGLOBIN (BEAKER) (test 23.9 pg 25.6-32.2 tfbd=796) MEAN CORPUSCULAR HEMOGLOBIN CONC (BEAKER) (test 30.5 GM/DL 32.2-35.5 ksfh=230) RED CELL DISTRIBUTION WIDTH (BEAKER) (test 14.6 % 11.7-14.4 hoje=346) PLATELET COUNT (BEAKER) (test hbms=754) 336 K/CU MM 150-450 MEAN PLATELET VOLUME (BEAKER) (test rygx=421) 9.3 fL 9.4-12.3 NUCLEATED RED BLOOD CELLS (BEAKER) (test 0 /100 WBC 0-0 svtw=190) NEUTROPHILS RELATIVE PERCENT (BEAKER) (test 50 % nfot=043) LYMPHOCYTES RELATIVE PERCENT (BEAKER) (test 40 % meot=246) MONOCYTES RELATIVE PERCENT (BEAKER) (test 6 % sxgs=405) EOSINOPHILS RELATIVE PERCENT (BEAKER) (test 3 % zysq=043) BASOPHILS RELATIVE PERCENT (BEAKER) (test 1 % rxir=374) NEUTROPHILS ABSOLUTE COUNT (BEAKER) (test 4.66 K/ L 1.56-6.13 focl=000) LYMPHOCYTES ABSOLUTE COUNT (BEAKER) (test 3.71 K/ L 1.18-3.74 ngqs=039) MONOCYTES ABSOLUTE COUNT (BEAKER) (test 0.53 K/ L 0.24-0.36 cidr=060) EOSINOPHILS ABSOLUTE COUNT (BEAKER) (test 0.31 K/ L 0.04-0.36 wekc=838) BASOPHILS ABSOLUTE COUNT (BEAKER) (test 0.07 K/ L 0.01-0.08 vhbx=881) IMMATURE GRANULOCYTES-RELATIVE PERCENT (BEAKER) 1 % 0-1 (test albu=2909) POCT-GLUCOSE [id number] 21:08:00 Test Item Value Reference Range Comments POC-GLUCOSE METER (BEAKER) 202 mg/dL 70-110 TESTED AT [address] (test fxry=8869) [facility] [address] POCT-GLUCOSE [id number] 16:50:00 Test Item Value Reference Range Comments POC-GLUCOSE METER (BEAKER) 287 mg/dL 70-110 TESTED AT [address] (test xwhm=6827) [facility] [address] POCT-GLUCOSE [id number] 12:21:00 Test Item Value Reference Range Comments POC-GLUCOSE METER (BEAKER) 213 mg/dL 70-110 TESTED AT [address] (test mjrv=8535) [facility] [address] POCT-GLUCOSE [id number] 08:28:00 Test Item Value Reference Range Comments POC-GLUCOSE METER (BEAKER) 178 mg/dL 70-110 TESTED AT [address] (test vsou=0052) [facility] [address] CALCIUM, [id number] 07:06:00 Test Item Value Reference Range Comments CALCIUM IONIZED (BEAKER) (test teud=390) 0.99 mmol/L 1.12-1.27 PH, BLOOD (BEAKER) (test izhl=6081) 7.42 [id number] 05:37:00 Test Item Value Reference Range Comments PHOSPHORUS (BEAKER) (test xzrz=525) 3.5 mg/dL 2.3-4.7 [id number] 05:37:00 Test Item Value Reference Range Comments MAGNESIUM (BEAKER) (test hnmr=394) 1.6 mg/dL 1.6-2.6 BASIC METABOLIC [id number] 05:37:00 Test Item Value Reference Range Comments SODIUM (BEAKER) (test 133 meq/L 136-145 xryf=938) POTASSIUM (BEAKER) (test 3.8 meq/L 3.5-5.1 vdpi=736) CHLORIDE (BEAKER) (test 101 meq/L 98-107 dkos=673) CO2 (BEAKER) (test 25 meq/L 22-29 dlef=788) BLOOD UREA NITROGEN 39 mg/dL 7-21 (BEAKER) (test jgtr=700) CREATININE (BEAKER) (test 1.42 mg/dL 0.57-1.25 covm=241) GLUCOSE RANDOM (BEAKER) 200 mg/dL 70-105 (test pubr=082) CALCIUM (BEAKER) (test 8.0 mg/dL 8.4-10.2 neuy=816) EGFR (BEAKER) (test 37 mL/min/1.73 sq m ESTIMATED GFR IS NOT xwvm=1957) ACCURATE CREATININE CLEARANCE IN PREDICTING GLOMERULAR FILTRATION RATE. ESTIMATED GFR IS NOT APPLICABLE FOR DIALYSIS PATIENTS. CBC W/PLT COUNT & AUTO [id number] 05:07:00 Test Item Value Reference Range Comments WHITE BLOOD CELL COUNT (BEAKER) (test zelp=983) 9.2 K/ L 3.5-10.5 RED BLOOD CELL COUNT (BEAKER) (test kwex=764) 3.69 M/ L 3.93-5.22 HEMOGLOBIN (BEAKER) (test oqhj=411) 8.8 GM/DL 11.2-15.7 HEMATOCRIT (BEAKER) (test yzuh=667) 28.8 % 34.1-44.9 MEAN CORPUSCULAR VOLUME (BEAKER) (test lyfp=932) 78.0 fL 79.4-94.8 MEAN CORPUSCULAR HEMOGLOBIN (BEAKER) (test 23.8 pg 25.6-32.2 pdwh=230) MEAN CORPUSCULAR HEMOGLOBIN CONC (BEAKER) (test 30.6 GM/DL 32.2-35.5 ggsr=654) RED CELL DISTRIBUTION WIDTH (BEAKER) (test 14.6 % 11.7-14.4 kcpu=615) PLATELET COUNT (BEAKER) (test qtnh=913) 308 K/CU MM 150-450 MEAN PLATELET VOLUME (BEAKER) (test pglr=828) 9.3 fL 9.4-12.3 NUCLEATED RED BLOOD CELLS (BEAKER) (test 0 /100 WBC 0-0 xsjd=109) NEUTROPHILS RELATIVE PERCENT (BEAKER) (test 61 % gwcc=333) LYMPHOCYTES RELATIVE PERCENT (BEAKER) (test 30 % jhvu=219) MONOCYTES RELATIVE PERCENT (BEAKER) (test 5 % hmrv=096) EOSINOPHILS RELATIVE PERCENT (BEAKER) (test 3 % rtjm=739) BASOPHILS RELATIVE PERCENT (BEAKER) (test 0 % gmjz=769) NEUTROPHILS ABSOLUTE COUNT (BEAKER) (test 5.67 K/ L 1.56-6.13 qbty=862) LYMPHOCYTES ABSOLUTE COUNT (BEAKER) (test 2.72 K/ L 1.18-3.74 kqhr=597) MONOCYTES ABSOLUTE COUNT (BEAKER) (test 0.48 K/ L 0.24-0.36 zwmu=163) EOSINOPHILS ABSOLUTE COUNT (BEAKER) (test 0.26 K/ L 0.04-0.36 dhvi=791) BASOPHILS ABSOLUTE COUNT (BEAKER) (test 0.04 K/ L 0.01-0.08 oqtr=990) IMMATURE GRANULOCYTES-RELATIVE PERCENT (BEAKER) 1 % 0-1 (test tcjv=4638) POCT-GLUCOSE [id number] 21:24:00 Test Item Value Reference Range Comments POC-GLUCOSE METER (BEAKER) 255 mg/dL 70-110 TESTED AT [address] (test uaut=5439) [place] [id number] POCT-GLUCOSE [id number] 17:11:00 Test Item Value Reference Range Comments POC-GLUCOSE METER (BEAKER) 244 mg/dL 70-110 TESTED AT [address] (test hykp=8625) [facility] [address] POCT-GLUCOSE [id number] 11:54:00 Test Item Value Reference Range Comments POC-GLUCOSE METER (BEAKER) 209 mg/dL 70-110 TESTED AT [address] (test ncjy=0367) [place] [id number] POCT-GLUCOSE [id number] 08:15:00 Test Item Value Reference Range Comments POC-GLUCOSE METER (BEAKER) 132 mg/dL 70-110 TESTED AT [address] (test xcfu=6468) [facility] [address] RAD, CHEST, 1 VIEW, NON [id number] 07:44:00Reason for exam:->edemaShould this be performed at the bedside?->YesFINAL REPORT Chest one view AP 08/07/2017 7:44 AM CLINICAL INDICATION: edema COMPARISON: 2017 IMPRESSION: Cardiomediastinal contours are stable. There is mild pulmonary edema,asymmetric to the right. There are trace bilateral pleural effusions, with bibasilar linear atelectasis. Sternotomy wires remain midline. Signed: Eder Cespedes Verified Date/Time: 08/07/2017 07:44:22 Reading Location: [facility] Radiology Reading Room [id number] 05:30:00 Test Item Value Reference Range Comments FERRITIN (BEAKER) (test pjsh=077) 87 ng/mL 5-275 CBC W/PLT COUNT & AUTO [id number] 05:21:00 Test Item Value Reference Range Comments WHITE BLOOD CELL COUNT (BEAKER) (test xwif=503) 12.4 K/ L 3.5-10.5 RED BLOOD CELL COUNT (BEAKER) (test mztt=708) 3.78 M/ L 3.93-5.22 HEMOGLOBIN (BEAKER) (test kcvk=378) 9.0 GM/DL 11.2-15.7 HEMATOCRIT (BEAKER) (test jfgw=106) 29.3 % 34.1-44.9 MEAN CORPUSCULAR VOLUME (BEAKER) (test crrj=426) 77.5 fL 79.4-94.8 MEAN CORPUSCULAR HEMOGLOBIN (BEAKER) (test 23.8 pg 25.6-32.2 gxnp=527) MEAN CORPUSCULAR HEMOGLOBIN CONC (BEAKER) (test 30.7 GM/DL 32.2-35.5 drbz=700) RED CELL DISTRIBUTION WIDTH (BEAKER) (test 14.7 % 11.7-14.4 evic=658) PLATELET COUNT (BEAKER) (test yihq=140) 316 K/CU MM 150-450 MEAN PLATELET VOLUME (BEAKER) (test pjxa=288) 9.6 fL 9.4-12.3 NUCLEATED RED BLOOD CELLS (BEAKER) (test 0 /100 WBC 0-0 dmlr=607) NEUTROPHILS RELATIVE PERCENT (BEAKER) (test 72 % lvii=013) LYMPHOCYTES RELATIVE PERCENT (BEAKER) (test 20 % beqt=910) MONOCYTES RELATIVE PERCENT (BEAKER) (test 5 % mqzs=771) EOSINOPHILS RELATIVE PERCENT (BEAKER) (test 2 % zsbi=442) BASOPHILS RELATIVE PERCENT (BEAKER) (test 1 % qpnu=961) NEUTROPHILS ABSOLUTE COUNT (BEAKER) (test 8.93 K/ L 1.56-6.13 qvsc=887) LYMPHOCYTES ABSOLUTE COUNT (BEAKER) (test 2.51 K/ L 1.18-3.74 yetw=063) MONOCYTES ABSOLUTE COUNT (BEAKER) (test 0.58 K/ L 0.24-0.36 widc=398) EOSINOPHILS ABSOLUTE COUNT (BEAKER) (test 0.23 K/ L 0.04-0.36 dcts=783) BASOPHILS ABSOLUTE COUNT (BEAKER) (test 0.07 K/ L 0.01-0.08 cqxm=847) IMMATURE GRANULOCYTES-RELATIVE PERCENT (BEAKER) 1 % 0-1 (test zwtx=1360) IRON, TIBC, % SAT. (WITHOUT FERRITIN)2017-08-07 05:16:00 Test Item Value Reference Range Comments IRON (BEAKER) (test umal=315) 21 ug/dL 40-160 TOTAL IRON BINDING CAPACITY (BEAKER) (test 184 ug/dL 250-450 oajk=519) IRON % SATURATION (2) (BEAKER) (test yxsh=5338) 11 % 20-55 [id number] 05:11:00 Test Item Value Reference Range Comments PHOSPHORUS (BEAKER) (test ngwu=042) 3.6 mg/dL 2.3-4.7 [id number] 05:11:00 Test Item Value Reference Range Comments MAGNESIUM (BEAKER) (test axag=959) 2.0 mg/dL 1.6-2.6 BASIC METABOLIC [id number] 05:11:00 Test Item Value Reference Range Comments SODIUM (BEAKER) (test 134 meq/L 136-145 ysih=575) POTASSIUM (BEAKER) (test 3.9 meq/L 3.5-5.1 jmyw=245) CHLORIDE (BEAKER) (test 102 meq/L 98-107 fkax=727) CO2 (BEAKER) (test 23 meq/L 22-29 huow=509) BLOOD UREA NITROGEN 41 mg/dL 7-21 (BEAKER) (test djxi=006) CREATININE (BEAKER) (test 1.63 mg/dL 0.57-1.25 nfdj=750) GLUCOSE RANDOM (BEAKER) 124 mg/dL 70-105 (test ygbk=094) CALCIUM (BEAKER) (test 8.3 mg/dL 8.4-10.2 xhcj=109) EGFR (BEAKER) (test 32 mL/min/1.73 sq m ESTIMATED GFR IS NOT qnhu=2604) ACCURATE CREATININE CLEARANCE IN PREDICTING GLOMERULAR FILTRATION RATE. ESTIMATED GFR IS NOT APPLICABLE FOR DIALYSIS PATIENTS. B-TYPE NATRIURETIC FACTOR (BNP)2017-08-07 05:05:00 Test Item Value Reference Range Comments B-TYPE NATRIURETIC PEPTIDE (BEAKER) (test 1561 pg/mL 0-100 giwb=644) CALCIUM, [id number] 04:58:00 Test Item Value Reference Range Comments CALCIUM IONIZED (BEAKER) (test vsgd=067) 1.04 mmol/L 1.12-1.27 PH, BLOOD (BEAKER) (test dehw=2706) 7.41 RETICULOCYTE [id number] 04:51:00 Test Item Value Reference Range Comments RETICULOCYTE COUNT PCT (BEAKER) (test ymax=532) 1.2 % 0.5-1.7 POCT-GLUCOSE [id number] 20:49:00 Test Item Value Reference Range Comments POC-GLUCOSE METER (BEAKER) 202 mg/dL 70-[address] [facility] [address] [facility] (test xzoj=9978) [place] [address] CREATININE, RANDOM [id number] 18:38:00 Test Item Value Reference Range Comments CREATININE URINE (BEAKER) (test afzo=746) 56.3 mg/dL Reference Range: No NormalsPROTEIN, RANDOM [id number] 18:38:00 Test Item Value Reference Range Comments PROTEIN, URINE (BEAKER) (test mbzx=1943) 189 mg/dL 0-14 URINALYSIS W/ [id number] 18:34:00 Test Item Value Reference Range Comments COLOR (BEAKER) (test uvmw=900) Light Yellow CLARITY (BEAKER) (test twgw=513) Hazy SPECIFIC GRAVITY UA (BEAKER) (test knoz=514) 1.008 1.001-1.035 PH UA (BEAKER) (test nmpu=967) 5.5 5.0-8.0 PROTEIN UA (BEAKER) (test hgkf=909) 100 mg/dL Negative GLUCOSE UA (BEAKER) (test bcqs=100) 30 mg/dL Negative KETONES UA (BEAKER) (test zjss=089) Negative Negative BILIRUBIN UA (BEAKER) (test qpzb=626) Negative Negative BLOOD UA (BEAKER) (test yrkk=903) Negative Negative NITRITE UA (BEAKER) (test cbot=324) Negative Negative LEUKOCYTE ESTERASE UA (BEAKER) (test dhhe=872) Negative Negative UROBILINOGEN UA (BEAKER) (test pmyq=600) 0.2 mg/dL 0.2-1.0 RBC UA (BEAKER) (test bvzq=967) < /HPF WBC UA (BEAKER) (test xxku=330) 2 /HPF BACTERIA (BEAKER) (test zzta=938) Rare MUCUS (BEAKER) (test qfbj=4891) Rare SQUAMOUS EPITHELIAL (BEAKER) (test sfwu=731) 8 /HPF SOURCE(BEAKER) (test ufsx=0843) Urine, Voided POCT-GLUCOSE [id number] 17:38:00 Test Item Value Reference Range Comments POC-GLUCOSE METER (BEAKER) 143 mg/dL 70-110 TESTED AT [address] (test hcuo=7238) [place] [address] POCT-GLUCOSE [id number] 12:30:00 Test Item Value Reference Range Comments POC-GLUCOSE METER (BEAKER) 218 mg/dL 70-110 TESTED AT [address] (test zxjs=1715) [place] [address] POCT-GLUCOSE [id number] 08:00:00 Test Item Value Reference Range Comments POC-GLUCOSE METER (BEAKER) 134 mg/dL 70-110 TESTED AT [address] (test plff=3086) [place] [address] CBC W/PLT COUNT & AUTO [id number] 04:23:00 Test Item Value Reference Range Comments WHITE BLOOD CELL COUNT (BEAKER) (test weiv=007) 13.9 K/ L 3.5-10.5 RED BLOOD CELL COUNT (BEAKER) (test mikv=919) 3.23 M/ L 3.93-5.22 HEMOGLOBIN (BEAKER) (test wgjs=122) 7.6 GM/DL 11.2-15.7 HEMATOCRIT (BEAKER) (test ated=132) 25.3 % 34.1-44.9 MEAN CORPUSCULAR VOLUME (BEAKER) (test nhgo=117) 78.3 fL 79.4-94.8 MEAN CORPUSCULAR HEMOGLOBIN (BEAKER) (test 23.5 pg 25.6-32.2 dvfo=130) MEAN CORPUSCULAR HEMOGLOBIN CONC (BEAKER) (test 30.0 GM/DL 32.2-35.5 shua=765) RED CELL DISTRIBUTION WIDTH (BEAKER) (test 14.8 % 11.7-14.4 mxvy=712) PLATELET COUNT (BEAKER) (test wwah=036) 284 K/CU MM 150-450 MEAN PLATELET VOLUME (BEAKER) (test tilq=979) 9.8 fL 9.4-12.3 NUCLEATED RED BLOOD CELLS (BEAKER) (test 0 /100 WBC 0-0 safb=255) NEUTROPHILS RELATIVE PERCENT (BEAKER) (test 77 % gvrn=981) LYMPHOCYTES RELATIVE PERCENT (BEAKER) (test 16 % liuv=137) MONOCYTES RELATIVE PERCENT (BEAKER) (test 4 % kwlx=324) EOSINOPHILS RELATIVE PERCENT (BEAKER) (test 2 % sbtw=191) BASOPHILS RELATIVE PERCENT (BEAKER) (test 1 % fwpx=567) NEUTROPHILS ABSOLUTE COUNT (BEAKER) (test 10.70 K/ L 1.56-6.13 ljqd=508) LYMPHOCYTES ABSOLUTE COUNT (BEAKER) (test 2.17 K/ L 1.18-3.74 ryvd=453) MONOCYTES ABSOLUTE COUNT (BEAKER) (test 0.57 K/ L 0.24-0.36 dolb=399) EOSINOPHILS ABSOLUTE COUNT (BEAKER) (test 0.30 K/ L 0.04-0.36 zlkm=035) BASOPHILS ABSOLUTE COUNT (BEAKER) (test 0.08 K/ L 0.01-0.08 wovb=283) IMMATURE GRANULOCYTES-RELATIVE PERCENT (BEAKER) 1 % 0-1 (test ribg=1744) BASIC METABOLIC [id number] 04:13:00 Test Item Value Reference Range Comments SODIUM (BEAKER) (test 134 meq/L 136-145 tlgp=081) POTASSIUM (BEAKER) (test 4.6 meq/L 3.5-5.1 gqkl=624) CHLORIDE (BEAKER) (test 103 meq/L 98-107 vcly=402) CO2 (BEAKER) (test 23 meq/L 22-29 xezv=622) BLOOD UREA NITROGEN 43 mg/dL 7-21 (BEAKER) (test inhb=885) CREATININE (BEAKER) (test 1.79 mg/dL 0.57-1.25 oaok=577) GLUCOSE RANDOM (BEAKER) 123 mg/dL 70-105 (test goei=454) CALCIUM (BEAKER) (test 8.1 mg/dL 8.4-10.2 nwzz=646) EGFR (BEAKER) (test 29 mL/min/1.73 sq m ESTIMATED GFR IS NOT ygxx=9956) ACCURATE CREATININE CLEARANCE IN PREDICTING GLOMERULAR FILTRATION RATE. ESTIMATED GFR IS NOT APPLICABLE FOR DIALYSIS PATIENTS. [id number] 04:10:00 Test Item Value Reference Range Comments PHOSPHORUS (BEAKER) (test kstj=195) 4.9 mg/dL 2.3-4.7 [id number] 04:10:00 Test Item Value Reference Range Comments MAGNESIUM (BEAKER) (test pdzz=137) 1.4 mg/dL 1.6-2.6 [id number] 04:08:00 Test Item Value Reference Range Comments FIBRINOGEN LEVEL (BEAKER) (test gqjt=598) 548 mg/dl 225-434 [id number] 04:08:00 Test Item Value Reference Range Comments PARTIAL THROMBOPLASTIN TIME (BEAKER) (test 37.7 seconds 22.5-36.0 oarw=804) PROTHROMBIN [id number] 04:07:00 Test Item Value Reference Range Comments PROTIME (BEAKER) (test siic=539) 16.2 seconds 11.7-14.7 INR (BEAKER) (test pewl=153) 1.3 <=5.9 RECOMMENDED COUMADIN/WARFARIN INR THERAPY RANGESSTANDARD DOSE: 2.0 - 3.0 Includes: PROPHYLAXIS forvenous thrombosis, systemic embolization; TREATMENT for venous thrombosis and/or pulmonary embolus.HIGH RISK: Target INR is 2.5-3.5 for patients with mechanical heart valves.[id number] 16:59:00 Test Item Value Reference Range Comments ACTIVATED CLOTTING TIME [address] [facility] [address] (BEAKER) (test hbqi=890) [facility] [address] BASIC METABOLIC [id number] 14:25:00 Test Item Value Reference Range Comments SODIUM (BEAKER) (test 134 meq/L 136-145 pxow=793) POTASSIUM (BEAKER) (test 4.4 meq/L 3.5-5.1 pkwf=891) CHLORIDE (BEAKER) (test 103 meq/L 98-107 spfb=847) CO2 (BEAKER) (test 22 meq/L 22-29 avzc=092) BLOOD UREA NITROGEN 46 mg/dL 7-21 (BEAKER) (test uyeg=762) CREATININE (BEAKER) (test 2.16 mg/dL 0.57-1.25 hago=802) GLUCOSE RANDOM (BEAKER) 160 mg/dL 70-105 (test rlps=701) CALCIUM (BEAKER) (test 7.8 mg/dL 8.4-10.2 sajd=237) EGFR (BEAKER) (test 23 mL/min/1.73 sq m ESTIMATED GFR IS NOT ovpg=4721) ACCURATE CREATININE CLEARANCE IN PREDICTING GLOMERULAR FILTRATION RATE. ESTIMATED GFR IS NOT APPLICABLE FOR DIALYSIS PATIENTS. POCT-GLUCOSE [id number] 13:21:00 Test Item Value Reference Range Comments POC-GLUCOSE METER (BEAKER) 170 mg/dL 70-[address] [facility] [address] [facility] (test cmnb=7537) [facility] [address] POTASSIUM-STAT [id number] 13:20:00 Test Item Value Reference Range Comments POTASSIUM (BEAKER) (test hakn=334) 4.2 meq/L 3.6-5.5 SODIUM NA-STAT [id number] 13:20:00 Test Item Value Reference Range Comments SODIUM (BEAKER) (test bgmt=582) 133 meq/L 135-148 HGB/HCT (H&H) - STAT [id number] 12:34:00 Test Item Value Reference Range Comments HEMOGLOBIN (BEAKER) (test ceyg=638) 10.8 g/dL 12.0-15.0 HEMATOCRIT (BEAKER) (test wggr=866) 32.0 % 36.0-45.0 POTASSIUM-STAT [id number] 08:15:00 Test Item Value Reference Range Comments POTASSIUM (BEAKER) (test ppqr=885) 4.1 meq/L 3.6-5.5 BLOOD GAS, [id number] 08:15:00 Test Item Value Reference Range Comments PH ARTERIAL (BEAKER) (test lccl=478) 7.36 7.35-7.45 PCO2 ARTERIAL (BEAKER) (test nzqd=309) 47 mmHg 35-45 PO2 ARTERIAL (BEAKER) (test rzoz=560) 213 mmHg 80-90 O2 SATURATION ARTERIAL (BEAKER) (test hssr=951) 99.4 % 96.0-97.0 HCO3 ARTERIAL (BEAKER) (test gkpm=744) 26 mmol/L 21-29 BASE EXCESS ARTERIAL (BEAKER) (test wuzs=834) 0.3 mmol/L -2.0-3.0 PATIENT TEMPERATURE (BEAKER) (test oxjm=9020) 37.2 C FIO2 (BEAKER) (test blyk=6021) 70.0 % SODIUM NA-STAT [id number] 08:15:00 Test Item Value Reference Range Comments SODIUM (BEAKER) (test veio=497) 130 meq/L 135-148 GLUCOSE-STAT [id number] 08:15:00 Test Item Value Reference Range Comments GLUCOSE RANDOM (BEAKER) (test hhat=670) 172 mg/dL 70-110 HGB/HCT (H&H) - STAT [id number] 08:15:00 Test Item Value Reference Range Comments HEMOGLOBIN (BEAKER) (test ckyx=223) 8.8 g/dL 12.0-15.0 HEMATOCRIT (BEAKER) (test eakw=595) 26.0 % 36.0-45.0 BASIC METABOLIC [id number] 07:37:00 Test Item Value Reference Range Comments SODIUM (BEAKER) (test 135 meq/L 136-145 yive=005) POTASSIUM (BEAKER) (test 4.4 meq/L 3.5-5.1 zmfh=622) CHLORIDE (BEAKER) (test 100 meq/L 98-107 covn=635) CO2 (BEAKER) (test 23 meq/L 22-29 rerg=544) BLOOD UREA NITROGEN 46 mg/dL 7-21 (BEAKER) (test sqke=808) CREATININE (BEAKER) (test 1.98 mg/dL 0.57-1.25 eajo=468) GLUCOSE RANDOM (BEAKER) 188 mg/dL 70-105 (test beyj=530) CALCIUM (BEAKER) (test 8.9 mg/dL 8.4-10.2 sqys=879) EGFR (BEAKER) (test 26 mL/min/1.73 sq m ESTIMATED GFR IS NOT ftwa=9866) ACCURATE CREATININE CLEARANCE IN PREDICTING GLOMERULAR FILTRATION RATE. ESTIMATED GFR IS NOT APPLICABLE FOR DIALYSIS PATIENTS. CBC W/PLT COUNT & AUTO [id number] 07:20:00 Test Item Value Reference Range Comments WHITE BLOOD CELL COUNT (BEAKER) (test emri=732) 20.2 K/ L 3.5-10.5 RED BLOOD CELL COUNT (BEAKER) (test exav=564) 3.86 M/ L 3.93-5.22 HEMOGLOBIN (BEAKER) (test xkhm=843) 9.1 GM/DL 11.2-15.7 HEMATOCRIT (BEAKER) (test svly=152) 29.4 % 34.1-44.9 MEAN CORPUSCULAR VOLUME (BEAKER) (test hpmf=394) 76.2 fL 79.4-94.8 MEAN CORPUSCULAR HEMOGLOBIN (BEAKER) (test 23.6 pg 25.6-32.2 nkou=968) MEAN CORPUSCULAR HEMOGLOBIN CONC (BEAKER) (test 31.0 GM/DL 32.2-35.5 ezxr=688) RED CELL DISTRIBUTION WIDTH (BEAKER) (test 14.9 % 11.7-14.4 usuj=706) PLATELET COUNT (BEAKER) (test tfrw=110) 343 K/CU MM 150-450 MEAN PLATELET VOLUME (BEAKER) (test gfah=414) 9.5 fL 9.4-12.3 NUCLEATED RED BLOOD CELLS (BEAKER) (test 0 /100 WBC 0-0 wvow=024) NEUTROPHILS RELATIVE PERCENT (BEAKER) (test 78 % ezek=961) LYMPHOCYTES RELATIVE PERCENT (BEAKER) (test 15 % xbhe=246) MONOCYTES RELATIVE PERCENT (BEAKER) (test 5 % kxns=414) EOSINOPHILS RELATIVE PERCENT (BEAKER) (test 1 % qlup=411) BASOPHILS RELATIVE PERCENT (BEAKER) (test 1 % vueb=572) NEUTROPHILS ABSOLUTE COUNT (BEAKER) (test 15.70 K/ L 1.56-6.13 mdlr=157) LYMPHOCYTES ABSOLUTE COUNT (BEAKER) (test 2.99 K/ L 1.18-3.74 syxe=410) MONOCYTES ABSOLUTE COUNT (BEAKER) (test 0.93 K/ L 0.24-0.36 plpy=469) EOSINOPHILS ABSOLUTE COUNT (BEAKER) (test 0.20 K/ L 0.04-0.36 jrtk=203) BASOPHILS ABSOLUTE COUNT (BEAKER) (test 0.12 K/ L 0.01-0.08 bewe=525) IMMATURE GRANULOCYTES-RELATIVE PERCENT (BEAKER) 1 % 0-1 (test oaws=4043) POCT-GLUCOSE [id number] 07:03:00 Test Item Value Reference Range Comments POC-GLUCOSE METER (BEAKER) 186 mg/dL 70-110 TESTED AT [address] (test xkdb=8767) [facility] [address] B-TYPE NATRIURETIC FACTOR (BNP)2017-06-10 12:44:00 Test Item Value Reference Range Comments B-TYPE NATRIURETIC PEPTIDE (BEAKER) (test 1264 pg/mL 0-100 ydny=311) [id number] 12:36:00 Test Item Value Reference Range Comments MAGNESIUM (BEAKER) (test syjl=349) 1.6 mg/dL 1.6-2.6 BASIC METABOLIC [id number] 12:36:00 Test Item Value Reference Range Comments SODIUM (BEAKER) (test 137 meq/L 136-145 pgfa=299) POTASSIUM (BEAKER) (test 5.4 meq/L 3.5-5.1 xdly=336) CHLORIDE (BEAKER) (test 108 meq/L 98-107 blrz=473) CO2 (BEAKER) (test 21 meq/L 22-29 rksx=759) BLOOD UREA NITROGEN 39 mg/dL 7-21 (BEAKER) (test mouy=994) CREATININE (BEAKER) (test 1.49 mg/dL 0.57-1.25 dcvc=794) GLUCOSE RANDOM (BEAKER) 219 mg/dL 70-105 (test licj=301) CALCIUM (BEAKER) (test 8.5 mg/dL 8.4-10.2 ldah=864) EGFR (BEAKER) (test 35 mL/min/1.73 sq m ESTIMATED GFR IS NOT ieaa=8901) ACCURATE CREATININE CLEARANCE IN PREDICTING GLOMERULAR FILTRATION RATE. ESTIMATED GFR IS NOT APPLICABLE FOR DIALYSIS PATIENTS. POCT-GLUCOSE [id number] 12:04:00 Test Item Value Reference Range Comments POC-GLUCOSE METER (BEAKER) 274 mg/dL 70-110 TESTED AT [address] (test cvvg=8153) [facility] [address] POCT-GLUCOSE [id number] 07:21:00 Test Item Value Reference Range Comments POC-GLUCOSE METER (BEAKER) 137 mg/dL 70-[address] [facility] [address] [facility] (test rpxi=0183) [facility] [address] BASIC METABOLIC [id number] 05:10:00 Test Item Value Reference Range Comments SODIUM (BEAKER) (test 137 meq/L 136-145 dyih=364) POTASSIUM (BEAKER) (test 4.1 meq/L 3.5-5.1 nsqv=779) CHLORIDE (BEAKER) (test 106 meq/L 98-107 trvv=857) CO2 (BEAKER) (test 24 meq/L 22-29 ibxf=818) BLOOD UREA NITROGEN 42 mg/dL 7-21 (BEAKER) (test qbni=087) CREATININE (BEAKER) (test 1.64 mg/dL 0.57-1.25 hvgz=128) GLUCOSE RANDOM (BEAKER) 162 mg/dL 70-105 (test pokq=338) CALCIUM (BEAKER) (test 8.1 mg/dL 8.4-10.2 hzfp=803) EGFR (BEAKER) (test 32 mL/min/1.73 sq m ESTIMATED GFR IS NOT uvre=9303) ACCURATE CREATININE CLEARANCE IN PREDICTING GLOMERULAR FILTRATION RATE. ESTIMATED GFR IS NOT APPLICABLE FOR DIALYSIS PATIENTS. CBC (HEMOGRAM ONLY)2017-06-01 04:30:00 Test Item Value Reference Range Comments WHITE BLOOD CELL COUNT (BEAKER) (test fztz=797) 6.4 K/ L 3.5-10.5 RED BLOOD CELL COUNT (BEAKER) (test xrbw=276) 3.38 M/ L 3.93-5.22 HEMOGLOBIN (BEAKER) (test ybqe=414) 8.7 GM/DL 11.2-15.7 HEMATOCRIT (BEAKER) (test qgqv=780) 28.2 % 34.1-44.9 MEAN CORPUSCULAR VOLUME (BEAKER) (test nukt=637) 83.4 fL 79.4-94.8 MEAN CORPUSCULAR HEMOGLOBIN (BEAKER) (test 25.7 pg 25.6-32.2 ofcy=480) MEAN CORPUSCULAR HEMOGLOBIN CONC (BEAKER) (test 30.9 GM/DL 32.2-35.5 blzk=552) RED CELL DISTRIBUTION WIDTH (BEAKER) (test 15.2 % 11.7-14.4 svsx=850) PLATELET COUNT (BEAKER) (test gszd=109) 320 K/CU MM 150-450 MEAN PLATELET VOLUME (BEAKER) (test nqjt=892) 9.5 fL 9.4-12.3 NUCLEATED RED BLOOD CELLS (BEAKER) (test 0 /100 WBC 0-0 wrhn=303) POCT-GLUCOSE [id number] 21:23:00 Test Item Value Reference Range Comments POC-GLUCOSE METER (BEAKER) 240 mg/dL 70-110 TESTED AT [address] (test vnds=6590) [place] [id number] POCT-GLUCOSE [id number] 16:42:00 Test Item Value Reference Range Comments POC-GLUCOSE METER (BEAKER) 234 mg/dL 70-110 TESTED AT [address] (test qxpo=0843) [place] [id number] POCT-GLUCOSE [id number] 13:22:00 Test Item Value Reference Range Comments POC-GLUCOSE METER (BEAKER) 166 mg/dL 70-110 TESTED AT [address] (test rzjw=3003) [facility] [address] RAD, CHEST, 1 VIEW, NON [id number] 09:43:00Reason for exam:->s/p ACBShould this be performed [...] Ring Verified Date/Time: 05/31/2017 09: 43:30 ReadingLocation: [facility] B1 [id number] Ortho Consult Reading Room POCT-GLUCOSE [id number] 06:57:00 Test Item Value Reference Range Comments POC-GLUCOSE METER (BEAKER) 136 mg/dL 70-[address] [facility] [address] (test qjdq=1639) [place] [address] CALCIUM, [id number] 06:41:00 Test Item Value Reference Range Comments CALCIUM IONIZED (BEAKER) (test bonu=738) 1.10 mmol/L 1.12-1.27 PH, BLOOD (BEAKER) (test xcto=6564) 7.42 [id number] 06:17:00 Test Item Value Reference Range Comments PHOSPHORUS (BEAKER) (test dkbq=227) 3.3 mg/dL 2.3-4.7 [id number] 06:17:00 Test Item Value Reference Range Comments MAGNESIUM (BEAKER) (test oizq=217) 1.8 mg/dL 1.6-2.6 BASIC METABOLIC [id number] 06:17:00 Test Item Value Reference Range Comments SODIUM (BEAKER) (test 131 meq/L 136-145 lxgg=837) POTASSIUM (BEAKER) (test 4.5 meq/L 3.5-5.1 mflw=788) CHLORIDE (BEAKER) (test 103 meq/L 98-107 ajqc=534) CO2 (BEAKER) (test 21 meq/L 22-29 yqwr=174) BLOOD UREA NITROGEN 43 mg/dL 7-21 (BEAKER) (test vttg=244) CREATININE (BEAKER) (test 1.74 mg/dL 0.57-1.25 pkrx=497) GLUCOSE RANDOM (BEAKER) 126 mg/dL 70-105 (test wxzx=959) CALCIUM (BEAKER) (test 8.1 mg/dL 8.4-10.2 dgso=618) EGFR (BEAKER) (test 30 mL/min/1.73 sq m ESTIMATED GFR IS NOT rhym=0745) ACCURATE CREATININE CLEARANCE IN PREDICTING GLOMERULAR FILTRATION RATE. ESTIMATED GFR IS NOT APPLICABLE FOR DIALYSIS PATIENTS. CBC W/PLT COUNT & AUTO [id number] 05:07:00 Test Item Value Reference Range Comments WHITE BLOOD CELL COUNT (BEAKER) (test domj=649) 5.9 K/ L 3.5-10.5 RED BLOOD CELL COUNT (BEAKER) (test tuul=485) 3.16 M/ L 3.93-5.22 HEMOGLOBIN (BEAKER) (test fvcp=598) 8.2 GM/DL 11.2-15.7 HEMATOCRIT (BEAKER) (test lnnh=298) 26.6 % 34.1-44.9 MEAN CORPUSCULAR VOLUME (BEAKER) (test uice=547) 84.2 fL 79.4-94.8 MEAN CORPUSCULAR HEMOGLOBIN (BEAKER) (test 25.9 pg 25.6-32.2 rmni=909) MEAN CORPUSCULAR HEMOGLOBIN CONC (BEAKER) (test 30.8 GM/DL 32.2-35.5 tfmx=919) RED CELL DISTRIBUTION WIDTH (BEAKER) (test 15.1 % 11.7-14.4 ybgu=489) PLATELET COUNT (BEAKER) (test obfd=884) 320 K/CU MM 150-450 MEAN PLATELET VOLUME (BEAKER) (test jnvj=293) 9.6 fL 9.4-12.3 NUCLEATED RED BLOOD CELLS (BEAKER) (test 0 /100 WBC 0-0 tdsg=393) NEUTROPHILS RELATIVE PERCENT (BEAKER) (test 65 % uyex=189) LYMPHOCYTES RELATIVE PERCENT (BEAKER) (test 24 % jrwx=830) MONOCYTES RELATIVE PERCENT (BEAKER) (test 8 % rzkv=941) EOSINOPHILS RELATIVE PERCENT (BEAKER) (test 2 % whcg=863) BASOPHILS RELATIVE PERCENT (BEAKER) (test 1 % kffs=309) NEUTROPHILS ABSOLUTE COUNT (BEAKER) (test 3.84 K/ L 1.56-6.13 lfdw=554) LYMPHOCYTES ABSOLUTE COUNT (BEAKER) (test 1.41 K/ L 1.18-3.74 wbma=196) MONOCYTES ABSOLUTE COUNT (BEAKER) (test 0.47 K/ L 0.24-0.36 gely=712) EOSINOPHILS ABSOLUTE COUNT (BEAKER) (test 0.11 K/ L 0.04-0.36 fcax=730) BASOPHILS ABSOLUTE COUNT (BEAKER) (test 0.05 K/ L 0.01-0.08 uimn=296) IMMATURE GRANULOCYTES-RELATIVE PERCENT (BEAKER) 1 % 0-1 (test ysvc=9793) POCT-GLUCOSE [id number] 20:56:00 Test Item Value Reference Range Comments POC-GLUCOSE METER (BEAKER) 196 mg/dL 70-[address] [facility] [address] [facility] (test pftc=8095) [place] [id number] POCT-GLUCOSE [id number] 16:42:00 Test Item Value Reference Range Comments POC-GLUCOSE METER (BEAKER) 196 mg/dL 70-[address] [facility] [address] [facility] (test uobg=8352) [place] [id number] POCT-GLUCOSE [id number] 11:45:00 Test Item Value Reference Range Comments POC-GLUCOSE METER (BEAKER) 215 mg/dL 70-110 TESTED AT [place] [id number] [facility] (test ykwx=1787) [place] [id number] RAD, CHEST, 1 VIEW, NON [id number] 11:15:00Reason for exam:->s/p ACBShould this be performed at the bedside?->YesFINAL REPORT Chest one view compared to May 28, 2017 Discussion: Airspace opacities are seen in both lower lung regions, probably atelectasis. Correlate clinically for infection. I could not exclude small effusions. No pneumothorax. Upper lungs clear. Signed: Jeannette Nava Verified Date/Time: 2017 11:15:07 Reading Location: [facility] Radiology Reading Room CALCIUM, [id number] 09:21:00 Test Item Value Reference Range Comments CALCIUM IONIZED (BEAKER) (test enri=370) 1.11 mmol/L 1.12-1.27 PH, BLOOD (BEAKER) (test wmpr=6120) 7.36 BASIC METABOLIC [id number] 07:37:00 Test Item Value Reference Range Comments SODIUM (BEAKER) (test 135 meq/L 136-145 saov=521) POTASSIUM (BEAKER) (test 4.9 meq/L 3.5-5.1 vihi=527) CHLORIDE (BEAKER) (test 105 meq/L 98-107 wdkz=901) CO2 (BEAKER) (test 25 meq/L 22-29 ejab=598) BLOOD UREA NITROGEN 44 mg/dL 7-21 (BEAKER) (test qltr=386) CREATININE (BEAKER) (test 1.76 mg/dL 0.57-1.25 apxd=449) GLUCOSE RANDOM (BEAKER) 136 mg/dL 70-105 (test mbra=285) CALCIUM (BEAKER) (test 8.2 mg/dL 8.4-10.2 msgr=252) EGFR (BEAKER) (test 29 mL/min/1.73 sq m ESTIMATED GFR IS NOT giov=2669) ACCURATE CREATININE CLEARANCE IN PREDICTING GLOMERULAR FILTRATION RATE. ESTIMATED GFR IS NOT APPLICABLE FOR DIALYSIS PATIENTS. [id number] 07:28:00 Test Item Value Reference Range Comments PHOSPHORUS (BEAKER) (test nyuz=850) 3.8 mg/dL 2.3-4.7 [id number] 07:28:00 Test Item Value Reference Range Comments MAGNESIUM (BEAKER) (test pqfe=584) 1.9 mg/dL 1.6-2.6 CBC W/PLT COUNT & AUTO [id number] 07:26:00 Test Item Value Reference Range Comments WHITE BLOOD CELL COUNT (BEAKER) (test qwva=286) 6.3 K/ L 3.5-10.5 RED BLOOD CELL COUNT (BEAKER) (test zdtk=460) 3.32 M/ L 3.93-5.22 HEMOGLOBIN (BEAKER) (test svov=254) 8.5 GM/DL 11.2-15.7 HEMATOCRIT (BEAKER) (test ddlh=964) 27.8 % 34.1-44.9 MEAN CORPUSCULAR VOLUME (BEAKER) (test ubcz=446) 83.7 fL 79.4-94.8 MEAN CORPUSCULAR HEMOGLOBIN (BEAKER) (test 25.6 pg 25.6-32.2 ylyv=558) MEAN CORPUSCULAR HEMOGLOBIN CONC (BEAKER) (test 30.6 GM/DL 32.2-35.5 eund=021) RED CELL DISTRIBUTION WIDTH (BEAKER) (test 15.0 % 11.7-14.4 rmqq=649) PLATELET COUNT (BEAKER) (test uufw=006) 336 K/CU MM 150-450 MEAN PLATELET VOLUME (BEAKER) (test bugk=363) 9.8 fL 9.4-12.3 NUCLEATED RED BLOOD CELLS (BEAKER) (test 0 /100 WBC 0-0 yoih=231) NEUTROPHILS RELATIVE PERCENT (BEAKER) (test 65 % cxjt=040) LYMPHOCYTES RELATIVE PERCENT (BEAKER) (test 24 % hbcf=994) MONOCYTES RELATIVE PERCENT (BEAKER) (test 7 % ybpd=080) EOSINOPHILS RELATIVE PERCENT (BEAKER) (test 3 % wngv=091) BASOPHILS RELATIVE PERCENT (BEAKER) (test 0 % zodi=159) NEUTROPHILS ABSOLUTE COUNT (BEAKER) (test 4.13 K/ L 1.56-6.13 sdxb=418) LYMPHOCYTES ABSOLUTE COUNT (BEAKER) (test 1.50 K/ L 1.18-3.74 qunf=803) MONOCYTES ABSOLUTE COUNT (BEAKER) (test 0.44 K/ L 0.24-0.36 cbjc=065) EOSINOPHILS ABSOLUTE COUNT (BEAKER) (test 0.20 K/ L 0.04-0.36 perl=126) BASOPHILS ABSOLUTE COUNT (BEAKER) (test 0.02 K/ L 0.01-0.08 kyud=036) IMMATURE GRANULOCYTES-RELATIVE PERCENT (BEAKER) 1 % 0-1 (test zduf=5288) POCT-GLUCOSE [id number] 07:21:00 Test Item Value Reference Range Comments POC-GLUCOSE METER (BEAKER) 146 mg/dL 70-110 TESTED AT [address] (test gpox=3914) [place] [address] POCT-GLUCOSE [id number] 22:02:00 Test Item Value Reference Range Comments POC-GLUCOSE METER (BEAKER) 201 mg/dL 70-110 TESTED AT [address] (test fikv=3779) [place] [id number] POCT-GLUCOSE [id number] 18:27:00 Test Item Value Reference Range Comments POC-GLUCOSE METER (BEAKER) 240 mg/dL 70-110 TESTED AT [address] (test xanq=7028) [place] [id number] POCT-GLUCOSE [id number] 12:13:00 Test Item Value Reference Range Comments POC-GLUCOSE METER (BEAKER) 193 mg/dL 70-110 TESTED AT [address] (test hcnb=0602) [place] [id number] POCT-GLUCOSE [id number] 09:02:00 Test Item Value Reference Range Comments POC-GLUCOSE METER (BEAKER) 132 mg/dL 70-110 TESTED AT [address] (test zcud=2534) [place] [id number] CALCIUM, [id number] 05:42:00 Test Item Value Reference Range Comments CALCIUM IONIZED (BEAKER) (test sdjg=990) 1.12 mmol/L 1.12-1.27 PH, BLOOD (BEAKER) (test ofwr=4342) 7.34 COMPREHENSIVE METABOLIC [id number] 05:33:00 Test Item Value Reference Range Comments TOTAL PROTEIN (BEAKER) 5.9 gm/dL 6.0-8.3 (test vafd=034) ALBUMIN (BEAKER) (test 2.7 g/dL 3.5-5.0 slvk=7010) ALKALINE PHOSPHATASE 130 U/L 40-150 (BEAKER) (test yzga=581) BILIRUBIN TOTAL (BEAKER) 0.3 mg/dL 0.2-1.2 (test mgzu=711) SODIUM (BEAKER) (test 135 meq/L 136-145 kzok=158) POTASSIUM (BEAKER) (test 4.7 meq/L 3.5-5.1 suag=791) CHLORIDE (BEAKER) (test 105 meq/L 98-107 apou=899) CO2 (BEAKER) (test 24 meq/L 22-29 wxkp=489) BLOOD UREA NITROGEN 42 mg/dL 7-21 (BEAKER) (test vfry=228) CREATININE (BEAKER) (test 1.78 mg/dL 0.57-1.25 nmhu=056) GLUCOSE RANDOM (BEAKER) 129 mg/dL 70-105 (test fgrj=203) CALCIUM (BEAKER) (test 8.5 mg/dL 8.4-10.2 pyqq=963) AST (SGOT) (BEAKER) (test 23 U/L 5-34 paaf=265) ALT (SGPT) (BEAKER) (test 15 U/L 6-55 ejbz=385) EGFR (BEAKER) (test 29 mL/min/1.73 sq m ESTIMATED GFR IS NOT jozj=7553) ACCURATE CREATININE CLEARANCE IN PREDICTING GLOMERULAR FILTRATION RATE. ESTIMATED GFR IS NOT APPLICABLE FOR DIALYSIS PATIENTS. [id number] 05:32:00 Test Item Value Reference Range Comments PHOSPHORUS (BEAKER) (test eyxc=333) 3.6 mg/dL 2.3-4.7 [id number] 05:32:00 Test Item Value Reference Range Comments MAGNESIUM (BEAKER) (test bnct=685) 2.2 mg/dL 1.6-2.6 CBC W/PLT COUNT & AUTO [id number] 05:01:00 Test Item Value Reference Range Comments WHITE BLOOD CELL COUNT (BEAKER) (test urhj=480) 6.4 K/ L 3.5-10.5 RED BLOOD CELL COUNT (BEAKER) (test ztrb=025) 3.43 M/ L 3.93-5.22 HEMOGLOBIN (BEAKER) (test skdw=972) 8.9 GM/DL 11.2-15.7 HEMATOCRIT (BEAKER) (test hzyv=472) 28.9 % 34.1-44.9 MEAN CORPUSCULAR VOLUME (BEAKER) (test lzfo=836) 84.3 fL 79.4-94.8 MEAN CORPUSCULAR HEMOGLOBIN (BEAKER) (test 25.9 pg 25.6-32.2 ufbl=280) MEAN CORPUSCULAR HEMOGLOBIN CONC (BEAKER) (test 30.8 GM/DL 32.2-35.5 xxeg=161) RED CELL DISTRIBUTION WIDTH (BEAKER) (test 15.0 % 11.7-14.4 pcdo=811) PLATELET COUNT (BEAKER) (test ydcc=966) 324 K/CU MM 150-450 MEAN PLATELET VOLUME (BEAKER) (test gqhy=136) 9.3 fL 9.4-12.3 NUCLEATED RED BLOOD CELLS (BEAKER) (test 0 /100 WBC 0-0 qtiw=468) NEUTROPHILS RELATIVE PERCENT (BEAKER) (test 62 % njes=193) LYMPHOCYTES RELATIVE PERCENT (BEAKER) (test 25 % mdyz=487) MONOCYTES RELATIVE PERCENT (BEAKER) (test 8 % vudo=343) EOSINOPHILS RELATIVE PERCENT (BEAKER) (test 4 % taik=943) BASOPHILS RELATIVE PERCENT (BEAKER) (test 1 % msrr=401) NEUTROPHILS ABSOLUTE COUNT (BEAKER) (test 3.93 K/ L 1.56-6.13 wwhd=014) LYMPHOCYTES ABSOLUTE COUNT (BEAKER) (test 1.60 K/ L 1.18-3.74 hnwv=401) MONOCYTES ABSOLUTE COUNT (BEAKER) (test 0.51 K/ L 0.24-0.36 mjin=279) EOSINOPHILS ABSOLUTE COUNT (BEAKER) (test 0.25 K/ L 0.04-0.36 pipb=449) BASOPHILS ABSOLUTE COUNT (BEAKER) (test 0.03 K/ L 0.01-0.08 swgq=898) IMMATURE GRANULOCYTES-RELATIVE PERCENT (BEAKER) 1 % 0-1 (test ikve=1502) POCT-GLUCOSE [id number] 21:04:00 Test Item Value Reference Range Comments POC-GLUCOSE METER (BEAKER) 165 mg/dL 70-110 TESTED AT [address] (test pnvj=8719) [facility] [address] POCT-GLUCOSE [id number] 17:30:00 Test Item Value Reference Range Comments POC-GLUCOSE METER (BEAKER) 236 mg/dL 70-110 TESTED AT [address] (test ybpf=7761) [facility] [address] RAD, CHEST, 1 VIEW, NON [id number] 13:53:00Reason for exam:->assess for ill-defined opacityShould this [...] MDReport Verified Date/Time: 05/28/2017 13:53:03 Reading Location: [address] Radiology Reading Room Electronically signed by: LUIS ALBERTO CALLAWAY M.D. on 01:53 PMPOCT-GLUCOSE [id number] 11:53:00 Test Item Value Reference Range Comments POC-GLUCOSE METER (BEAKER) 215 mg/dL 70-110 TESTED AT [address] (test cuwv=1142) [facility] [address] POCT-GLUCOSE [id number] 08:32:00 Test Item Value Reference Range Comments POC-GLUCOSE METER (BEAKER) 168 mg/dL 70-110 TESTED AT [address] (test nqce=2450) [facility] [address] CALCIUM, [id number] 05:44:00 Test Item Value Reference Range Comments CALCIUM IONIZED (BEAKER) (test iqxv=836) 1.09 mmol/L 1.12-1.27 PH, BLOOD (BEAKER) (test voku=5460) 7.38 [id number] 05:44:00 Test Item Value Reference Range Comments PHOSPHORUS (BEAKER) (test zpls=256) 3.5 mg/dL 2.3-4.7 [id number] 05:44:00 Test Item Value Reference Range Comments MAGNESIUM (BEAKER) (test cvdx=456) 1.9 mg/dL 1.6-2.6 BASIC METABOLIC [id number] 05:44:00 Test Item Value Reference Range Comments SODIUM (BEAKER) (test 137 meq/L 136-145 eqzn=589) POTASSIUM (BEAKER) (test 4.5 meq/L 3.5-5.1 oyuk=355) CHLORIDE (BEAKER) (test 108 meq/L 98-107 muyv=735) CO2 (BEAKER) (test 23 meq/L 22-29 dlid=108) BLOOD UREA NITROGEN 41 mg/dL 7-21 (BEAKER) (test vvlz=586) CREATININE (BEAKER) (test 1.41 mg/dL 0.57-1.25 glga=500) GLUCOSE RANDOM (BEAKER) 113 mg/dL 70-105 (test zhth=002) CALCIUM (BEAKER) (test 8.1 mg/dL 8.4-10.2 ryvn=136) EGFR (BEAKER) (test 38 mL/min/1.73 sq m ESTIMATED GFR IS NOT fdet=1212) ACCURATE CREATININE CLEARANCE IN PREDICTING GLOMERULAR FILTRATION RATE. ESTIMATED GFR IS NOT APPLICABLE FOR DIALYSIS PATIENTS. CBC W/PLT COUNT & AUTO [id number] 05:05:00 Test Item Value Reference Range Comments WHITE BLOOD CELL COUNT (BEAKER) (test mgmf=355) 6.3 K/ L 3.5-10.5 RED BLOOD CELL COUNT (BEAKER) (test zcht=255) 3.40 M/ L 3.93-5.22 HEMOGLOBIN (BEAKER) (test chvs=075) 8.8 GM/DL 11.2-15.7 HEMATOCRIT (BEAKER) (test edlv=611) 29.0 % 34.1-44.9 MEAN CORPUSCULAR VOLUME (BEAKER) (test wfyi=704) 85.3 fL 79.4-94.8 MEAN CORPUSCULAR HEMOGLOBIN (BEAKER) (test 25.9 pg 25.6-32.2 lqhg=769) MEAN CORPUSCULAR HEMOGLOBIN CONC (BEAKER) (test 30.3 GM/DL 32.2-35.5 vkcd=014) RED CELL DISTRIBUTION WIDTH (BEAKER) (test 14.9 % 11.7-14.4 jzfk=101) PLATELET COUNT (BEAKER) (test tkvf=800) 282 K/CU MM 150-450 MEAN PLATELET VOLUME (BEAKER) (test myom=425) 9.5 fL 9.4-12.3 NUCLEATED RED BLOOD CELLS (BEAKER) (test 0 /100 WBC 0-0 yfhg=220) NEUTROPHILS RELATIVE PERCENT (BEAKER) (test 59 % mrxi=539) LYMPHOCYTES RELATIVE PERCENT (BEAKER) (test 28 % jvxu=572) MONOCYTES RELATIVE PERCENT (BEAKER) (test 7 % jhzv=927) EOSINOPHILS RELATIVE PERCENT (BEAKER) (test 4 % pllu=032) BASOPHILS RELATIVE PERCENT (BEAKER) (test 1 % sozu=746) NEUTROPHILS ABSOLUTE COUNT (BEAKER) (test 3.75 K/ L 1.56-6.13 fqla=309) LYMPHOCYTES ABSOLUTE COUNT (BEAKER) (test 1.80 K/ L 1.18-3.74 hnko=804) MONOCYTES ABSOLUTE COUNT (BEAKER) (test 0.45 K/ L 0.24-0.36 cusa=335) EOSINOPHILS ABSOLUTE COUNT (BEAKER) (test 0.25 K/ L 0.04-0.36 ggmn=244) BASOPHILS ABSOLUTE COUNT (BEAKER) (test 0.05 K/ L 0.01-0.08 qsxa=677) IMMATURE GRANULOCYTES-RELATIVE PERCENT (BEAKER) 1 % 0-1 (test rfvo=9158) POCT-GLUCOSE [id number] 21:03:00 Test Item Value Reference Range Comments POC-GLUCOSE METER (BEAKER) 173 mg/dL 70-110 TESTED AT [address] (test vtub=8521) [place] [address] [id number] 18:15:00 Test Item Value Reference Range Comments ACTIVATED CLOTTING TIME 147 sec TESTED AT [address] (BEAKER) (test ahmb=367) [place] [address] [id number] 18:15:00 Test Item Value Reference Range Comments ACTIVATED CLOTTING TIME 246 sec TESTED AT [place] [id number] [place] (BEAKER) (test ciwc=031) [place] [id number] POCT-GLUCOSE [id number] 12:39:00 Test Item Value Reference Range Comments POC-GLUCOSE METER (BEAKER) 219 mg/dL 70-110 TESTED AT [address] (test pbbb=4063) [place] [address] RAD, CHEST, 1 VIEW, NON [id number] 10:11:00Reason for exam:->pl effusionShould this be performed at the bedside?->YesFINAL REPORT Chest one view compared to May 26 Discussion: There is cardiac prominence. Upper lungs are clear. Ill-defined basilar densities are similar probably atelectasis. No gross effusion or pneumothorax with bilateral chest tubes in place. Signed: Jeannette Nava Verified Date/Time: 2017 10:11:44 Reading Location: [facility] Radiology Reading Room POCT- GLUCOSE [id number] 07:05:00 Test Item Value Reference Range Comments POC-GLUCOSE METER (BEAKER) 167 mg/dL 70-110 TESTED AT [address] (test djob=2925) [place] [id number] CALCIUM, [id number] 06:20:00 Test Item Value Reference Range Comments CALCIUM IONIZED (BEAKER) (test tjcd=701) 0.98 mmol/L 1.12-1.27 PH, BLOOD (BEAKER) (test ygrn=1104) 7.50 [id number] 04:56:00 Test Item Value Reference Range Comments PHOSPHORUS (BEAKER) (test wcne=191) 2.6 mg/dL 2.3-4.7 [id number] 04:56:00 Test Item Value Reference Range Comments MAGNESIUM (BEAKER) (test dkgc=947) 2.0 mg/dL 1.6-2.6 BASIC METABOLIC [id number] 04:56:00 Test Item Value Reference Range Comments SODIUM (BEAKER) (test 135 meq/L 136-145 cbyf=045) POTASSIUM (BEAKER) (test 4.5 meq/L 3.5-5.1 cxso=712) CHLORIDE (BEAKER) (test 105 meq/L 98-107 xkfw=951) CO2 (BEAKER) (test 22 meq/L 22-29 ctym=131) BLOOD UREA NITROGEN 47 mg/dL 7-21 (BEAKER) (test vhwl=714) CREATININE (BEAKER) (test 1.44 mg/dL 0.57-1.25 whfe=606) GLUCOSE RANDOM (BEAKER) 177 mg/dL 70-105 (test euor=266) CALCIUM (BEAKER) (test 8.0 mg/dL 8.4-10.2 zsps=456) EGFR (BEAKER) (test 37 mL/min/1.73 sq m ESTIMATED GFR IS NOT nhrj=6520) ACCURATE CREATININE CLEARANCE IN PREDICTING GLOMERULAR FILTRATION RATE. ESTIMATED GFR IS NOT APPLICABLE FOR DIALYSIS PATIENTS. CBC W/PLT COUNT & AUTO [id number] 04:36:00 Test Item Value Reference Range Comments WHITE BLOOD CELL COUNT (BEAKER) (test qhbu=338) 6.1 K/ L 3.5-10.5 RED BLOOD CELL COUNT (BEAKER) (test pggo=952) 3.35 M/ L 3.93-5.22 HEMOGLOBIN (BEAKER) (test dhjy=926) 8.6 GM/DL 11.2-15.7 HEMATOCRIT (BEAKER) (test zdkw=954) 28.0 % 34.1-44.9 MEAN CORPUSCULAR VOLUME (BEAKER) (test lsyc=509) 83.6 fL 79.4-94.8 MEAN CORPUSCULAR HEMOGLOBIN (BEAKER) (test 25.7 pg 25.6-32.2 wjfc=012) MEAN CORPUSCULAR HEMOGLOBIN CONC (BEAKER) (test 30.7 GM/DL 32.2-35.5 gkjw=645) RED CELL DISTRIBUTION WIDTH (BEAKER) (test 14.7 % 11.7-14.4 nzmf=954) PLATELET COUNT (BEAKER) (test icvf=940) 280 K/CU MM 150-450 MEAN PLATELET VOLUME (BEAKER) (test vhlb=444) 9.9 fL 9.4-12.3 NUCLEATED RED BLOOD CELLS (BEAKER) (test 0 /100 WBC 0-0 wbvf=754) NEUTROPHILS RELATIVE PERCENT (BEAKER) (test 65 % ugqe=591) LYMPHOCYTES RELATIVE PERCENT (BEAKER) (test 23 % rrlo=300) MONOCYTES RELATIVE PERCENT (BEAKER) (test 7 % ondb=912) EOSINOPHILS RELATIVE PERCENT (BEAKER) (test 4 % bvrx=290) BASOPHILS RELATIVE PERCENT (BEAKER) (test 1 % getp=377) NEUTROPHILS ABSOLUTE COUNT (BEAKER) (test 3.97 K/ L 1.56-6.13 wrld=748) LYMPHOCYTES ABSOLUTE COUNT (BEAKER) (test 1.41 K/ L 1.18-3.74 hbag=584) MONOCYTES ABSOLUTE COUNT (BEAKER) (test 0.44 K/ L 0.24-0.36 cddt=045) EOSINOPHILS ABSOLUTE COUNT (BEAKER) (test 0.22 K/ L 0.04-0.36 ebej=039) BASOPHILS ABSOLUTE COUNT (BEAKER) (test 0.05 K/ L 0.01-0.08 ugec=460) IMMATURE GRANULOCYTES-RELATIVE PERCENT (BEAKER) 1 % 0-1 (test qxnv=5280) POCT-GLUCOSE [id number] 21:29:00 Test Item Value Reference Range Comments POC-GLUCOSE METER (BEAKER) 147 mg/dL 70-110 TESTED AT [address] (test cgsw=1682) [place] [address] POCT-GLUCOSE [id number] 17:51:00 Test Item Value Reference Range Comments POC-GLUCOSE METER (BEAKER) 224 mg/dL 70-110 TESTED AT [address] (test oalm=9522) [place] [address] POCT-GLUCOSE [id number] 13:53:00 Test Item Value Reference Range Comments POC-GLUCOSE METER (BEAKER) 182 mg/dL 70-110 TESTED AT [address] (test ffdy=9142) [place] [address] RAD, CHEST, 1 VIEW, NON [id number] 08:44:00Reason for exam:->pl effusionShould this be performed [...] Verified Date/Time : 05/26/2017 08:44:25 Reading Location: [address] Radiology Reading Room POCT- GLUCOSE [id number] 07:43:00 Test Item Value Reference Range Comments POC-GLUCOSE METER (BEAKER) 113 mg/dL 70-[address] [facility] [address] [facility] (test dqcl=4851) [facility] [address] CALCIUM, [id number] 06:31:00 Test Item Value Reference Range Comments CALCIUM IONIZED (BEAKER) (test msjr=496) 1.07 mmol/L 1.12-1.27 PH, BLOOD (BEAKER) (test thbj=8709) 7.38 [id number] 04:51:00 Test Item Value Reference Range Comments PHOSPHORUS (BEAKER) (test pliv=694) 3.2 mg/dL 2.3-4.7 [id number] 04:51:00 Test Item Value Reference Range Comments MAGNESIUM (BEAKER) (test keoj=432) 2.1 mg/dL 1.6-2.6 BASIC METABOLIC [id number] 04:51:00 Test Item Value Reference Range Comments SODIUM (BEAKER) (test 139 meq/L 136-145 tblm=138) POTASSIUM (BEAKER) (test 4.1 meq/L 3.5-5.1 cumo=859) CHLORIDE (BEAKER) (test 106 meq/L 98-107 yjnw=403) CO2 (BEAKER) (test 24 meq/L 22-29 fqnk=123) BLOOD UREA NITROGEN 52 mg/dL 7-21 (BEAKER) (test gnmy=051) CREATININE (BEAKER) (test 1.52 mg/dL 0.57-1.25 ttww=711) GLUCOSE RANDOM (BEAKER) 108 mg/dL 70-105 (test bwik=098) CALCIUM (BEAKER) (test 8.4 mg/dL 8.4-10.2 puij=748) EGFR (BEAKER) (test 35 mL/min/1.73 sq m ESTIMATED GFR IS NOT urao=9504) ACCURATE CREATININE CLEARANCE IN PREDICTING GLOMERULAR FILTRATION RATE. ESTIMATED GFR IS NOT APPLICABLE FOR DIALYSIS PATIENTS. CBC W/PLT COUNT & AUTO [id number] 04:27:00 Test Item Value Reference Range Comments WHITE BLOOD CELL COUNT (BEAKER) (test uwwi=244) 7.2 K/ L 3.5-10.5 RED BLOOD CELL COUNT (BEAKER) (test wdxg=763) 3.53 M/ L 3.93-5.22 HEMOGLOBIN (BEAKER) (test icwc=934) 9.1 GM/DL 11.2-15.7 HEMATOCRIT (BEAKER) (test qbhl=812) 29.5 % 34.1-44.9 MEAN CORPUSCULAR VOLUME (BEAKER) (test rovk=722) 83.6 fL 79.4-94.8 MEAN CORPUSCULAR HEMOGLOBIN (BEAKER) (test 25.8 pg 25.6-32.2 axnb=208) MEAN CORPUSCULAR HEMOGLOBIN CONC (BEAKER) (test 30.8 GM/DL 32.2-35.5 ufdc=612) RED CELL DISTRIBUTION WIDTH (BEAKER) (test 14.6 % 11.7-14.4 xgkr=857) PLATELET COUNT (BEAKER) (test bdbu=958) 296 K/CU MM 150-450 MEAN PLATELET VOLUME (BEAKER) (test itnp=655) 9.5 fL 9.4-12.3 NUCLEATED RED BLOOD CELLS (BEAKER) (test 0 /100 WBC 0-0 iiob=680) NEUTROPHILS RELATIVE PERCENT (BEAKER) (test 67 % imdh=934) LYMPHOCYTES RELATIVE PERCENT (BEAKER) (test 21 % sbzg=942) MONOCYTES RELATIVE PERCENT (BEAKER) (test 7 % ueem=135) EOSINOPHILS RELATIVE PERCENT (BEAKER) (test 4 % bjri=249) BASOPHILS RELATIVE PERCENT (BEAKER) (test 1 % waxs=174) NEUTROPHILS ABSOLUTE COUNT (BEAKER) (test 4.79 K/ L 1.56-6.13 rcyy=359) LYMPHOCYTES ABSOLUTE COUNT (BEAKER) (test 1.49 K/ L 1.18-3.74 tsds=176) MONOCYTES ABSOLUTE COUNT (BEAKER) (test 0.50 K/ L 0.24-0.36 ljjv=717) EOSINOPHILS ABSOLUTE COUNT (BEAKER) (test 0.30 K/ L 0.04-0.36 pnzc=437) BASOPHILS ABSOLUTE COUNT (BEAKER) (test 0.05 K/ L 0.01-0.08 bjcd=960) IMMATURE GRANULOCYTES-RELATIVE PERCENT (BEAKER) 0 % 0-1 (test jndn=9840) POCT-GLUCOSE [id number] 23:48:00 Test Item Value Reference Range Comments POC-GLUCOSE METER (BEAKER) 123 mg/dL 70-110 TESTED AT [address] (test iqem=0419) [place] [address] POCT-GLUCOSE [id number] 16:46:00 Test Item Value Reference Range Comments POC-GLUCOSE METER (BEAKER) 178 mg/dL 70-110 TESTED AT [address] (test duhv=1937) [place] [address] BASIC METABOLIC [id number] 05:53:00 Test Item Value Reference Range Comments SODIUM (BEAKER) (test 139 meq/L 136-145 cxdb=576) POTASSIUM (BEAKER) (test 3.9 meq/L 3.5-5.1 nful=286) CHLORIDE (BEAKER) (test 106 meq/L 98-107 rlcg=521) CO2 (BEAKER) (test 23 meq/L 22-29 vgsu=299) BLOOD UREA NITROGEN 62 mg/dL 7-21 (BEAKER) (test wypl=069) CREATININE (BEAKER) (test 2.05 mg/dL 0.57-1.25 kiah=540) GLUCOSE RANDOM (BEAKER) 87 mg/dL 70-105 (test tybu=319) CALCIUM (BEAKER) (test 7.9 mg/dL 8.4-10.2 tcbn=132) EGFR (BEAKER) (test 25 mL/min/1.73 sq m ESTIMATED GFR IS NOT bpyz=6484) ACCURATE CREATININE CLEARANCE IN PREDICTING GLOMERULAR FILTRATION RATE. ESTIMATED GFR IS NOT APPLICABLE FOR DIALYSIS PATIENTS. [id number] 05:52:00 Test Item Value Reference Range Comments PHOSPHORUS (BEAKER) (test bpcp=379) 4.2 mg/dL 2.3-4.7 [id number] 05:52:00 Test Item Value Reference Range Comments MAGNESIUM (BEAKER) (test mfdq=292) 2.3 mg/dL 1.6-2.6 CALCIUM, [id number] 05:27:00 Test Item Value Reference Range Comments CALCIUM IONIZED (BEAKER) (test fztx=358) 1.12 mmol/L 1.12-1.27 PH, BLOOD (BEAKER) (test iekw=3584) 7.38 CBC W/PLT COUNT & AUTO [id number] 05:07:00 Test Item Value Reference Range Comments WHITE BLOOD CELL COUNT (BEAKER) (test itxy=742) 8.4 K/ L 3.5-10.5 RED BLOOD CELL COUNT (BEAKER) (test qxgr=424) 3.16 M/ L 3.93-5.22 HEMOGLOBIN (BEAKER) (test hxoj=571) 8.2 GM/DL 11.2-15.7 HEMATOCRIT (BEAKER) (test efzd=640) 26.5 % 34.1-44.9 MEAN CORPUSCULAR VOLUME (BEAKER) (test fudu=253) 83.9 fL 79.4-94.8 MEAN CORPUSCULAR HEMOGLOBIN (BEAKER) (test 25.9 pg 25.6-32.2 jopq=851) MEAN CORPUSCULAR HEMOGLOBIN CONC (BEAKER) (test 30.9 GM/DL 32.2-35.5 ddrl=897) RED CELL DISTRIBUTION WIDTH (BEAKER) (test 14.6 % 11.7-14.4 wrlc=814) PLATELET COUNT (BEAKER) (test ajms=994) 256 K/CU MM 150-450 MEAN PLATELET VOLUME (BEAKER) (test gchd=289) 10.0 fL 9.4-12.3 NUCLEATED RED BLOOD CELLS (BEAKER) (test 0 /100 WBC 0-0 toud=678) NEUTROPHILS RELATIVE PERCENT (BEAKER) (test 63 % mabu=511) LYMPHOCYTES RELATIVE PERCENT (BEAKER) (test 25 % xxqy=331) MONOCYTES RELATIVE PERCENT (BEAKER) (test 8 % gvqx=703) EOSINOPHILS RELATIVE PERCENT (BEAKER) (test 3 % uwzq=861) BASOPHILS RELATIVE PERCENT (BEAKER) (test 1 % mcaz=515) NEUTROPHILS ABSOLUTE COUNT (BEAKER) (test 5.27 K/ L 1.56-6.13 zsgp=628) LYMPHOCYTES ABSOLUTE COUNT (BEAKER) (test 2.09 K/ L 1.18-3.74 emme=710) MONOCYTES ABSOLUTE COUNT (BEAKER) (test 0.63 K/ L 0.24-0.36 qlre=489) EOSINOPHILS ABSOLUTE COUNT (BEAKER) (test 0.27 K/ L 0.04-0.36 irds=233) BASOPHILS ABSOLUTE COUNT (BEAKER) (test 0.05 K/ L 0.01-0.08 sqgf=599) IMMATURE GRANULOCYTES-RELATIVE PERCENT (BEAKER) 1 % 0-1 (test qyfp=1123) RAD, CHEST, 1 VIEW, NON [id number] 04:45:00Reason for exam:->pl effusionShould this be performed [...] MDReport Verified Date/Time: 05/25/2017 04:45:08 Reading Location: [place] [id number] Body Reading Room POCT-GLUCOSE [id number] 01:52:00 Test Item Value Reference Range Comments POC-GLUCOSE METER (BEAKER) 126 mg/dL 70-110 TESTED AT [address] (test zhlg=5768) [facility] [address] POCT-GLUCOSE [id number] 13:07:00 Test Item Value Reference Range Comments POC-GLUCOSE METER (BEAKER) 118 mg/dL 70-110 TESTED AT [address] (test qnrb=6221) [facility] [address] BRONCHIAL CULTURE + GRAM [id number] 11:35:00 Test Item Value Reference Range Comments CULTURE (BEAKER) (test tvib=2773) Amikacin (test code=1) Susceptible 0-16 , Resistant [...] >40 code=47) CULTURE (BEAKER) (test 4+ Bordetella jvsh=5819) bronchiseptica GRAM STAIN RESULT 1+ WBCs (BEAKER) (test twpl=9887) GRAM STAIN RESULT <1+ gram positive (BEAKER) (test cocci in pairs xyxj=319976) GRAM STAIN RESULT 1+ gram variable (BEAKER) (test rods dyie=112439) 1+ Normal respiratory todd presentRAD, CHEST, 1 VIEW, NON [id number] 06:50: 00Reason for exam:->pl effusionShould this be [...] MDReport Verified Date/Time: 05/24/2017 06:50:08 Reading Location: [address] Body Reading Room BASIC METABOLIC [id number] 04: 19:00 Test Item Value Reference Range Comments SODIUM (BEAKER) (test 136 meq/L 136-145 hyxj=113) POTASSIUM (BEAKER) (test 4.3 meq/L 3.5-5.1 nyxb=323) CHLORIDE (BEAKER) (test 104 meq/L 98-107 riwr=359) CO2 (BEAKER) (test 20 meq/L 22-29 pbsf=246) BLOOD UREA NITROGEN 61 mg/dL 7-21 (BEAKER) (test lyoa=611) CREATININE (BEAKER) (test 2.69 mg/dL 0.57-1.25 ztip=055) GLUCOSE RANDOM (BEAKER) 107 mg/dL 70-105 (test tfxs=018) CALCIUM (BEAKER) (test 7.8 mg/dL 8.4-10.2 xypp=694) EGFR (BEAKER) (test 18 mL/min/1.73 sq m ESTIMATED GFR IS NOT mxna=9563) ACCURATE CREATININE CLEARANCE IN PREDICTING GLOMERULAR FILTRATION RATE. ESTIMATED GFR IS NOT APPLICABLE FOR DIALYSIS PATIENTS. CALCIUM, [id number] 04:16:00 Test Item Value Reference Range Comments CALCIUM IONIZED (BEAKER) (test gzqs=133) 1.06 mmol/L 1.12-1.27 PH, BLOOD (BEAKER) (test ijgi=5209) 7.40 [id number] 04:11:00 Test Item Value Reference Range Comments PHOSPHORUS (BEAKER) (test kifa=190) 6.0 mg/dL 2.3-4.7 [id number] 04:11:00 Test Item Value Reference Range Comments MAGNESIUM (BEAKER) (test hdyc=381) 2.4 mg/dL 1.6-2.6 CBC W/PLT COUNT & AUTO [id number] 03:50:00 Test Item Value Reference Range Comments WHITE BLOOD CELL COUNT (BEAKER) (test yabk=183) 9.5 K/ L 3.5-10.5 RED BLOOD CELL COUNT (BEAKER) (test qpbo=214) 3.06 M/ L 3.93-5.22 HEMOGLOBIN (BEAKER) (test zvug=596) 7.9 GM/DL 11.2-15.7 HEMATOCRIT (BEAKER) (test mozb=861) 25.5 % 34.1-44.9 MEAN CORPUSCULAR VOLUME (BEAKER) (test ojzg=785) 83.3 fL 79.4-94.8 MEAN CORPUSCULAR HEMOGLOBIN (BEAKER) (test 25.8 pg 25.6-32.2 kdxy=708) MEAN CORPUSCULAR HEMOGLOBIN CONC (BEAKER) (test 31.0 GM/DL 32.2-35.5 ckzx=648) RED CELL DISTRIBUTION WIDTH (BEAKER) (test 15.1 % 11.7-14.4 uxlz=643) PLATELET COUNT (BEAKER) (test izai=680) 224 K/CU MM 150-450 MEAN PLATELET VOLUME (BEAKER) (test ruww=055) 10.5 fL 9.4-12.3 NUCLEATED RED BLOOD CELLS (BEAKER) (test 0 /100 WBC 0-0 kvxf=889) NEUTROPHILS RELATIVE PERCENT (BEAKER) (test 70 % xfba=400) LYMPHOCYTES RELATIVE PERCENT (BEAKER) (test 21 % ylpw=976) MONOCYTES RELATIVE PERCENT (BEAKER) (test 7 % htxs=852) EOSINOPHILS RELATIVE PERCENT (BEAKER) (test 2 % ccvh=883) BASOPHILS RELATIVE PERCENT (BEAKER) (test 0 % egox=787) NEUTROPHILS ABSOLUTE COUNT (BEAKER) (test 6.60 K/ L 1.56-6.13 ywfo=356) LYMPHOCYTES ABSOLUTE COUNT (BEAKER) (test 2.02 K/ L 1.18-3.74 xxwg=692) MONOCYTES ABSOLUTE COUNT (BEAKER) (test 0.63 K/ L 0.24-0.36 iklj=275) EOSINOPHILS ABSOLUTE COUNT (BEAKER) (test 0.15 K/ L 0.04-0.36 dabk=188) BASOPHILS ABSOLUTE COUNT (BEAKER) (test 0.04 K/ L 0.01-0.08 qids=616) IMMATURE GRANULOCYTES-RELATIVE PERCENT (BEAKER) 0 % 0-1 (test ljyy=1315) POCT-GLUCOSE [id number] 20:45:00 Test Item Value Reference Range Comments POC-GLUCOSE METER (BEAKER) 143 mg/dL 70-[address] [facility] [address] (test utqn=5612) [facility] [address] POCT-GLUCOSE [id number] 20:45:00 Test Item Value Reference Range Comments POC-GLUCOSE METER (BEAKER) 145 mg/dL 70-[address] [facility] [address] (test pgxz=7224) [facility] [address] [id number] 13:37:00 Test Item Value Reference Range Comments PREALBUMIN (BEAKER) (test 10 mg/dL 14-45 Specimen slightly hemolyzed dxed=443) OXYGEN SATURATION, [id number] 12:31:00 Test Item Value Reference Range Comments O2 SATURATION (MEASURED) (BEAKER) (test cmte=6031) 94.5 % [id number] 11:02:00 Test Item Value Reference Range Comments PREALBUMIN (BEAKER) (test mxmu=494) 10 mg/dL 14-45 RAD, CHEST, 1 VIEW, NON [id number] 05:14:00while patient is intubated or has chest [...] MDReport Verified Date/Time: 05/23/2017 05:14:04 Reading Location: [address] Body Reading Room BASIC METABOLIC [id number] 03:48:00 Test Item Value Reference Range Comments SODIUM (BEAKER) (test 138 meq/L 136-145 wjse=485) POTASSIUM (BEAKER) (test 4.6 meq/L 3.5-5.1 Specimen slightly wmuz=442) hemolyzed CHLORIDE (BEAKER) (test 106 meq/L 98-107 vacv=249) CO2 (BEAKER) (test 20 meq/L 22-29 jjnk=800) BLOOD UREA NITROGEN 54 mg/dL 7-21 (BEAKER) (test qhyl=230) CREATININE (BEAKER) (test 2.66 mg/dL 0.57-1.25 Specimen slightly lagm=110) hemolyzed GLUCOSE RANDOM (BEAKER) 113 mg/dL 70-105 (test efmi=499) CALCIUM (BEAKER) (test 7.9 mg/dL 8.4-10.2 klqt=651) EGFR (BEAKER) (test 18 mL/min/1.73 sq m ESTIMATED GFR IS NOT lbhw=7891) ACCURATE CREATININE CLEARANCE IN PREDICTING GLOMERULAR FILTRATION RATE. ESTIMATED GFR IS NOT APPLICABLE FOR DIALYSIS PATIENTS. [id number] 03:46:00 Test Item Value Reference Range Comments MAGNESIUM (BEAKER) (test 2.4 mg/dL 1.6-2.6 Specimen slightly hemolyzed hmhb=770) [id number] 03:46:00 Test Item Value Reference Range Comments PHOSPHORUS (BEAKER) (test 6.5 mg/dL 2.3-4.7 Specimen slightly hemolyzed uexb=216) CBC W/PLT COUNT & AUTO [id number] 03:26:00 Test Item Value Reference Range Comments WHITE BLOOD CELL COUNT (BEAKER) (test wdol=568) 10.8 K/ L 3.5-10.5 RED BLOOD CELL COUNT (BEAKER) (test pfaw=324) 3.16 M/ L 3.93-5.22 HEMOGLOBIN (BEAKER) (test eknn=578) 8.2 GM/DL 11.2-15.7 HEMATOCRIT (BEAKER) (test ibuz=147) 26.6 % 34.1-44.9 MEAN CORPUSCULAR VOLUME (BEAKER) (test ediw=176) 84.2 fL 79.4-94.8 MEAN CORPUSCULAR HEMOGLOBIN (BEAKER) (test 25.9 pg 25.6-32.2 usnw=150) MEAN CORPUSCULAR HEMOGLOBIN CONC (BEAKER) (test 30.8 GM/DL 32.2-35.5 albm=592) RED CELL DISTRIBUTION WIDTH (BEAKER) (test 15.0 % 11.7-14.4 cwjm=160) PLATELET COUNT (BEAKER) (test cpgf=263) 195 K/CU MM 150-450 MEAN PLATELET VOLUME (BEAKER) (test ukyy=647) 10.6 fL 9.4-12.3 NUCLEATED RED BLOOD CELLS (BEAKER) (test 0 /100 WBC 0-0 xikx=335) NEUTROPHILS RELATIVE PERCENT (BEAKER) (test 73 % wzrx=412) LYMPHOCYTES RELATIVE PERCENT (BEAKER) (test 18 % hkrz=484) MONOCYTES RELATIVE PERCENT (BEAKER) (test 6 % uajx=824) EOSINOPHILS RELATIVE PERCENT (BEAKER) (test 2 % tfmt=862) BASOPHILS RELATIVE PERCENT (BEAKER) (test 1 % ihgy=232) NEUTROPHILS ABSOLUTE COUNT (BEAKER) (test 7.95 K/ L 1.56-6.13 lqjt=569) LYMPHOCYTES ABSOLUTE COUNT (BEAKER) (test 1.93 K/ L 1.18-3.74 bkfr=260) MONOCYTES ABSOLUTE COUNT (BEAKER) (test 0.66 K/ L 0.24-0.36 pnrw=364) EOSINOPHILS ABSOLUTE COUNT (BEAKER) (test 0.18 K/ L 0.04-0.36 irff=658) BASOPHILS ABSOLUTE COUNT (BEAKER) (test 0.07 K/ L 0.01-0.08 uefc=634) IMMATURE GRANULOCYTES-RELATIVE PERCENT (BEAKER) 0 % 0-1 (test fmrm=7236) BLOOD GAS, [id number] 03:18:00 Test Item Value Reference Range Comments PH ARTERIAL (BEAKER) (test hrlw=181) 7.40 7.35-7.45 PCO2 ARTERIAL (BEAKER) (test zxbs=538) 40 mmHg 35-45 PO2 ARTERIAL (BEAKER) (test xdwq=632) 63 mmHg 80-90 O2 SATURATION ARTERIAL (BEAKER) (test qdqr=344) 92.3 % 96.0-97.0 HCO3 ARTERIAL (BEAKER) (test jsia=616) 24 mmol/L 21-29 BASE EXCESS ARTERIAL (BEAKER) (test gxye=043) -0.6 mmol/L -2.0-3.0 PATIENT TEMPERATURE (BEAKER) (test rsnd=2674) 36.8 C FIO2 (BEAKER) (test ifum=0493) 36.0 % CALCIUM, [id number] 16:32:00 Test Item Value Reference Range Comments CALCIUM IONIZED (BEAKER) (test dppy=483) 1.11 mmol/L 1.12-1.27 PH, BLOOD (BEAKER) (test sxzr=6000) 7.39 BASIC METABOLIC [id number] 15:43:00 Test Item Value Reference Range Comments SODIUM (BEAKER) (test 139 meq/L 136-145 nzzl=749) POTASSIUM (BEAKER) (test 4.6 meq/L 3.5-5.1 xklx=328) CHLORIDE (BEAKER) (test 106 meq/L 98-107 grop=802) CO2 (BEAKER) (test 21 meq/L 22-29 qyzu=760) BLOOD UREA NITROGEN 54 mg/dL 7-21 (BEAKER) (test dhvv=591) CREATININE (BEAKER) (test 3.08 mg/dL 0.57-1.25 jiwi=000) GLUCOSE RANDOM (BEAKER) 116 mg/dL 70-105 (test sdfi=868) CALCIUM (BEAKER) (test 8.1 mg/dL 8.4-10.2 titm=261) EGFR (BEAKER) (test 15 mL/min/1.73 sq m ESTIMATED GFR IS NOT jqex=8775) ACCURATE CREATININE CLEARANCE IN PREDICTING GLOMERULAR FILTRATION RATE. ESTIMATED GFR IS NOT APPLICABLE FOR DIALYSIS PATIENTS. POCT-GLUCOSE [id number] 12:53:00 Test Item Value Reference Range Comments POC-GLUCOSE METER (BEAKER) 118 mg/dL 70-110 TESTED AT [address] (test vckk=0960) [place] [address] BLOOD GAS, [id number] 10:42:00 Test Item Value Reference Range Comments PH ARTERIAL (BEAKER) (test ymqv=093) 7.40 7.35-7.45 PCO2 ARTERIAL (BEAKER) (test bwjp=833) 38 mmHg 35-45 PO2 ARTERIAL (BEAKER) (test qitj=515) 78 mmHg 80-90 O2 SATURATION ARTERIAL (BEAKER) (test rdfk=861) 95.6 % 96.0-97.0 HCO3 ARTERIAL (BEAKER) (test agzj=369) 23 mmol/L 21-29 BASE EXCESS ARTERIAL (BEAKER) (test ngwl=470) -1.4 mmol/L -2.0-3.0 PATIENT TEMPERATURE (BEAKER) (test mvwu=6277) 36.9 C FIO2 (BEAKER) (test bsac=6051) 40.0 % POCT-GLUCOSE [id number] 06:46:00 Test Item Value Reference Range Comments POC-GLUCOSE METER (BEAKER) 106 mg/dL 70-110 TESTED AT [address] (test evsk=4550) [place] [address] RAD, CHEST, 1 VIEW, NON [id number] 05:05:00while patient is intubated or has chest [...] MDReport Verified Date/Time: 05/22/2017 05:05:00 Reading Location: [facility] C013[facility] CT Body ReadingRoom BASIC METABOLIC [id number] 05:00:00 Test Item Value Reference Range Comments SODIUM (BEAKER) (test 138 meq/L 136-145 odik=387) POTASSIUM (BEAKER) (test 4.5 meq/L 3.5-5.1 erzk=165) CHLORIDE (BEAKER) (test 107 meq/L 98-107 sgnh=398) CO2 (BEAKER) (test 21 meq/L 22-29 cpkd=867) BLOOD UREA NITROGEN 53 mg/dL 7-21 (BEAKER) (test mhah=366) CREATININE (BEAKER) (test 3.23 mg/dL 0.57-1.25 achv=211) GLUCOSE RANDOM (BEAKER) 126 mg/dL 70-105 (test btvj=922) CALCIUM (BEAKER) (test 8.1 mg/dL 8.4-10.2 cwmg=959) EGFR (BEAKER) (test 15 mL/min/1.73 sq m ESTIMATED GFR IS NOT zyvl=0061) ACCURATE CREATININE CLEARANCE IN PREDICTING GLOMERULAR FILTRATION RATE. ESTIMATED GFR IS NOT APPLICABLE FOR DIALYSIS PATIENTS. [id number] 04:41:00 Test Item Value Reference Range Comments PHOSPHORUS (BEAKER) (test khlg=840) 6.4 mg/dL 2.3-4.7 [id number] 04:41:00 Test Item Value Reference Range Comments MAGNESIUM (BEAKER) (test jgir=704) 2.6 mg/dL 1.6-2.6 CALCIUM, [id number] 04:26:00 Test Item Value Reference Range Comments CALCIUM IONIZED (BEAKER) (test ninf=048) 1.09 mmol/L 1.12-1.27 PH, BLOOD (BEAKER) (test foqw=4347) 7.40 OXYGEN SATURATION, [id number] 04:25:00 Test Item Value Reference Range Comments O2 SATURATION (MEASURED) (BEAKER) (test udmv=5468) 77.0 % CBC W/PLT COUNT & AUTO [id number] 04:17:00 Test Item Value Reference Range Comments WHITE BLOOD CELL COUNT (BEAKER) (test lagl=632) 8.9 K/ L 3.5-10.5 RED BLOOD CELL COUNT (BEAKER) (test femu=911) 3.14 M/ L 3.93-5.22 HEMOGLOBIN (BEAKER) (test iiny=398) 8.1 GM/DL 11.2-15.7 HEMATOCRIT (BEAKER) (test yhaf=581) 26.1 % 34.1-44.9 MEAN CORPUSCULAR VOLUME (BEAKER) (test egmd=506) 83.1 fL 79.4-94.8 MEAN CORPUSCULAR HEMOGLOBIN (BEAKER) (test 25.8 pg 25.6-32.2 vjeg=291) MEAN CORPUSCULAR HEMOGLOBIN CONC (BEAKER) (test 31.0 GM/DL 32.2-35.5 zdzw=485) RED CELL DISTRIBUTION WIDTH (BEAKER) (test 15.3 % 11.7-14.4 pigo=128) PLATELET COUNT (BEAKER) (test opfr=179) 156 K/CU MM 150-450 MEAN PLATELET VOLUME (BEAKER) (test bwol=899) 10.2 fL 9.4-12.3 NUCLEATED RED BLOOD CELLS (BEAKER) (test 0 /100 WBC 0-0 qgrn=142) NEUTROPHILS RELATIVE PERCENT (BEAKER) (test 68 % hhkd=270) LYMPHOCYTES RELATIVE PERCENT (BEAKER) (test 22 % ssjd=488) MONOCYTES RELATIVE PERCENT (BEAKER) (test 8 % qjit=354) EOSINOPHILS RELATIVE PERCENT (BEAKER) (test 1 % kgbl=734) BASOPHILS RELATIVE PERCENT (BEAKER) (test 1 % bzxc=357) NEUTROPHILS ABSOLUTE COUNT (BEAKER) (test 6.05 K/ L 1.56-6.13 bfml=372) LYMPHOCYTES ABSOLUTE COUNT (BEAKER) (test 1.91 K/ L 1.18-3.74 aoqg=015) MONOCYTES ABSOLUTE COUNT (BEAKER) (test 0.74 K/ L 0.24-0.36 mebn=461) EOSINOPHILS ABSOLUTE COUNT (BEAKER) (test 0.08 K/ L 0.04-0.36 lfol=483) BASOPHILS ABSOLUTE COUNT (BEAKER) (test 0.05 K/ L 0.01-0.08 kmvs=899) IMMATURE GRANULOCYTES-RELATIVE PERCENT (BEAKER) 0 % 0-1 (test yevr=2848) LACTIC ACID, ARTERIAL, WHOLE [id number] 00:07:00 Test Item Value Reference Range Comments LACTATE BLOOD ARTERIAL (2) 1.0 mmol/L 0.5-2.2 Specimen slightly hemolyzed (BEAKER) (test xogt=2390) Effective 08/02/2015: Units/Reference Range ChangeNew: 0.5-2.2 mmol/L Previous: 5 -20 mg/dLPOCT-GLUCOSE [id number] 23:47:00 Test Item Value Reference Range Comments POC-GLUCOSE METER (BEAKER) 180 mg/dL 70-[address] [facility] [address] [facility] (test ozbv=2957) [facility] [address] BLOOD GAS, [id number] 23:46:00 Test Item Value Reference Range Comments PH ARTERIAL (BEAKER) (test zsgi=004) 7.40 7.35-7.45 PCO2 ARTERIAL (BEAKER) (test ymcd=599) 37 mmHg 35-45 PO2 ARTERIAL (BEAKER) (test wjpi=964) 136 mmHg 80-90 O2 SATURATION ARTERIAL (BEAKER) (test xaud=107) 98.7 % 96.0-97.0 HCO3 ARTERIAL (BEAKER) (test yqfu=063) 22 mmol/L 21-29 BASE EXCESS ARTERIAL (BEAKER) (test wpgt=050) -2.4 mmol/L -2.0-3.0 PATIENT TEMPERATURE (BEAKER) (test cpwa=4929) 37.0 C FIO2 (BEAKER) (test ijib=5055) 100.0 % SODIUM NA-STAT [id number] 23:46:00 Test Item Value Reference Range Comments SODIUM (BEAKER) (test cyms=813) 134 meq/L 135-148 GLUCOSE-STAT [id number] 23:46:00 Test Item Value Reference Range Comments GLUCOSE RANDOM (BEAKER) (test lgsr=529) 119 mg/dL 70-110 HGB/HCT (H&H) - STAT [id number] 23:46:00 Test Item Value Reference Range Comments HEMOGLOBIN (BEAKER) (test nriw=747) 8.8 g/dL 12.0-15.0 HEMATOCRIT (BEAKER) (test vxoo=975) 26.0 % 36.0-45.0 OXYGEN SATURATION, [id number] 23:45:00 Test Item Value Reference Range Comments O2 SATURATION (MEASURED) (BEAKER) (test txyv=0460) 68.1 % POTASSIUM-STAT [id number] 23:45:00 Test Item Value Reference Range Comments POTASSIUM (BEAKER) (test dbka=066) 5.5 meq/L 3.6-5.5 POCT-GLUCOSE [id number] 20:58:00 Test Item Value Reference Range Comments POC-GLUCOSE METER (BEAKER) 133 mg/dL 70-110 TESTED AT [address] (test lhlx=9476) [facility] [address] POCT-GLUCOSE [id number] 17:58:00 Test Item Value Reference Range Comments POC-GLUCOSE METER (BEAKER) 210 mg/dL 70-110 TESTED AT [address] (test erdh=5244) [facility] [address] POCT-GLUCOSE [id number] 17:58:00 Test Item Value Reference Range Comments POC-GLUCOSE METER (BEAKER) 211 mg/dL 70-110 TESTED AT [address] (test sbtv=9905) [facility] [address] POCT-GLUCOSE [id number] 17:58:00 Test Item Value Reference Range Comments POC-GLUCOSE METER (BEAKER) 232 mg/dL 70-110 TESTED AT [address] (test kddc=1611) [facility] [address] POCT-GLUCOSE [id number] 17:58:00 Test Item Value Reference Range Comments POC-GLUCOSE METER (BEAKER) 262 mg/dL 70-110 TESTED AT [address] (test lfgh=9224) [place] [id number] BLOOD GAS, [id number] 17:01:00 Test Item Value Reference Range Comments PH ARTERIAL (BEAKER) (test fgfk=629) 7.38 7.35-7.45 PCO2 ARTERIAL (BEAKER) (test xbxo=990) 39 mmHg 35-45 PO2 ARTERIAL (BEAKER) (test gobe=497) 75 mmHg 80-90 O2 SATURATION ARTERIAL (BEAKER) (test oyxn=302) 94.9 % 96.0-97.0 HCO3 ARTERIAL (BEAKER) (test edid=977) 23 mmol/L 21-29 BASE EXCESS ARTERIAL (BEAKER) (test ebyw=464) -2.5 mmol/L -2.0-3.0 PATIENT TEMPERATURE (BEAKER) (test ijzd=7329) 36.8 C FIO2 (BEAKER) (test rjui=4878) 60.0 % POTASSIUM-STAT [id number] 17:00:00 Test Item Value Reference Range Comments POTASSIUM (BEAKER) (test khdz=538) 4.8 meq/L 3.6-5.5 POCT-GLUCOSE [id number] 15:52:00 Test Item Value Reference Range Comments POC-GLUCOSE METER (BEAKER) 267 mg/dL 70-110 TESTED AT [address] (test klnb=3249) [place] [address] POCT-GLUCOSE [id number] 14:42:00 Test Item Value Reference Range Comments POC-GLUCOSE METER (BEAKER) 231 mg/dL 70-110 TESTED AT [address] (test dsel=6949) [place] [address] BODY FLUID CELL COUNT WITH [id number] 14:41:00 Test Item Value Reference Range Comments APPEARANCE FLUID (BEAKER) (test zxaf=957) Turbid Clear COLOR FLUID (BEAKER) (test fgnv=336) Colorless Colorless, Straw RBC FLUID (BEAKER) (test gepf=391) 2000 /cu mm <=1 ADJUSTED WBC FLUID (BEAKER) (test kvjm=2674) 1489 /cu mm <=5 LINING CELLS (BEAKER) (test klqa=6210) 119 /cu mm <=1 NEUTROPHILS FLUID (BEAKER) (test ymhq=1851) 40 % LYMPHS FLUID (BEAKER) (test kbho=247) 34 % MONO/MACROPHAGE FLUID (BEAKER) (test ccer=243) 26 % EOSINOPHILS FLUID (BEAKER) (test brai=762) 0 % BASO FLUID (BEAKER) (test skqd=477) 0 % CONTAINER BODY FLUID (BEAKER) (test pwjv=5541) EDTA Tube BASIC METABOLIC [id number] 14:11:00 Test Item Value Reference Range Comments SODIUM (BEAKER) (test 137 meq/L 136-145 kkkn=535) POTASSIUM (BEAKER) (test 5.6 meq/L 3.5-5.1 aqgp=344) CHLORIDE (BEAKER) (test 106 meq/L 98-107 quep=568) CO2 (BEAKER) (test 20 meq/L 22-29 kopg=463) BLOOD UREA NITROGEN 48 mg/dL 7-21 (BEAKER) (test mnqn=677) CREATININE (BEAKER) (test 2.50 mg/dL 0.57-1.25 trsv=009) GLUCOSE RANDOM (BEAKER) 221 mg/dL 70-105 (test pqwk=168) CALCIUM (BEAKER) (test 8.1 mg/dL 8.4-10.2 nuqf=471) EGFR (BEAKER) (test 20 mL/min/1.73 sq m ESTIMATED GFR IS NOT wvwm=3848) ACCURATE CREATININE CLEARANCE IN PREDICTING GLOMERULAR FILTRATION RATE. ESTIMATED GFR IS NOT APPLICABLE FOR DIALYSIS PATIENTS. [id number] 14:08:00 Test Item Value Reference Range Comments PHOSPHORUS (BEAKER) (test uanm=807) 7.2 mg/dL 2.3-4.7 [id number] 14:08:00 Test Item Value Reference Range Comments MAGNESIUM (BEAKER) (test skmo=533) 2.6 mg/dL 1.6-2.6 POCT-GLUCOSE [id number] 12:49:00 Test Item Value Reference Range Comments POC-GLUCOSE METER (BEAKER) 224 mg/dL 70-[address] [facility] [address] (test rdor=5599) [facility] [address] POCT-GLUCOSE [id number] 12:49:00 Test Item Value Reference Range Comments POC-GLUCOSE METER (BEAKER) 248 mg/dL 70-[address] [facility] [address] (test dtwj=9905) [facility] [address] RAD, CHEST, 1 VIEW, NON [id number] 12:32:00Reason for exam:->re- intubationShould this be performed [...] left pneumothorax is grossly unchanged. Signed: Magdalena [place] Verified Date/Time: 05/21/2017 12:32:08 Reading Location: [facility] Radiology Reading Room POTASSIUM-STAT [id number] 12:28:00 Test Item Value Reference Range Comments POTASSIUM (BEAKER) (test spze=308) 5.5 meq/L 3.6-5.5 BLOOD GAS, [id number] 12:28:00 Test Item Value Reference Range Comments PH ARTERIAL (BEAKER) (test usok=077) 7.32 7.35-7.45 PCO2 ARTERIAL (BEAKER) (test qjfp=864) 45 mmHg 35-45 PO2 ARTERIAL (BEAKER) (test eobf=151) 304 mmHg 80-90 O2 SATURATION ARTERIAL (BEAKER) (test xrum=017) 99.7 % 96.0-97.0 HCO3 ARTERIAL (BEAKER) (test ycew=144) 22 mmol/L 21-29 BASE EXCESS ARTERIAL (BEAKER) (test iczw=207) -3.7 mmol/L -2.0-3.0 PATIENT TEMPERATURE (BEAKER) (test nipo=7045) 37.0 C FIO2 (BEAKER) (test xcxb=9400) 100.0 % BLOOD GAS, [id number] 10:53:00 Test Item Value Reference Range Comments PH ARTERIAL (BEAKER) (test jhdy=566) 7.36 7.35-7.45 PCO2 ARTERIAL (BEAKER) (test byae=728) 35 mmHg 35-45 PO2 ARTERIAL (BEAKER) (test thug=822) 40 mmHg 80-90 O2 SATURATION ARTERIAL (BEAKER) (test ulrs=543) 82.3 % 96.0-97.0 HCO3 ARTERIAL (BEAKER) (test abyw=892) 20 mmol/L 21-29 BASE EXCESS ARTERIAL (BEAKER) (test hslh=233) -5.9 mmol/L -2.0-3.0 PATIENT TEMPERATURE (BEAKER) (test ihhj=0556) 33.7 C FIO2 (BEAKER) (test tbnq=6407) 36.0 % RAD, CHEST, 1 VIEW, NON [id number] 08:46:00while patient is intubated or has chest [...] Verified Date/ Time: 05/21/2017 08:46:27 Reading Location: [facility] Radiology Reading Room BLOOD GAS, [id number] 05:41:00 Test Item Value Reference Range Comments PH ARTERIAL (BEAKER) (test ynzx=224) 7.33 7.35-7.45 PCO2 ARTERIAL (BEAKER) (test wref=585) 40 mm Hg 35-45 PO2 ARTERIAL (BEAKER) (test kydz=548) 106 mm Hg 80-90 O2 SATURATION ARTERIAL (BEAKER) (test nvdo=372) 97.5 % 96.0-97.0 HCO3 ARTERIAL (BEAKER) (test lvzy=296) 21 mmol/L 21-29 BASE EXCESS ARTERIAL (BEAKER) (test uhhf=828) -5.1 mmol/L -2.0-3.0 PATIENT TEMPERATURE (BEAKER) (test ddzn=4823) 37.0 FIO2 (BEAKER) (test ydho=6148) 40 CALCIUM, [id number] 04:35:00 Test Item Value Reference Range Comments CALCIUM IONIZED (BEAKER) (test albm=857) 1.13 mmol/L 1.12-1.27 PH, BLOOD (BEAKER) (test iodc=8601) 7.32 BLOOD GAS, [id number] 04:28:00 Test Item Value Reference Range Comments PH ARTERIAL (BEAKER) (test glac=329) 7.32 7.35-7.45 PCO2 ARTERIAL (BEAKER) (test iwtv=414) 40 mmHg 35-45 PO2 ARTERIAL (BEAKER) (test lphj=279) 100 mmHg 80-90 O2 SATURATION ARTERIAL (BEAKER) (test wyup=195) 97.2 % 96.0-97.0 HCO3 ARTERIAL (BEAKER) (test esvx=496) 20 mmol/L 21-29 BASE EXCESS ARTERIAL (BEAKER) (test lobp=683) -5.7 mmol/L -2.0-3.0 PATIENT TEMPERATURE (BEAKER) (test tdoa=0646) 36.9 C FIO2 (BEAKER) (test hmnv=9081) 40.0 % [id number] 04:20:00 Test Item Value Reference Range Comments PHOSPHORUS (BEAKER) (test cpot=345) 6.2 mg/dL 2.3-4.7 [id number] 04:20:00 Test Item Value Reference Range Comments MAGNESIUM (BEAKER) (test vgsl=119) 2.4 mg/dL 1.6-2.6 HEPATIC FUNCTION [id number] 04:20:00 Test Item Value Reference Range Comments TOTAL PROTEIN (BEAKER) (test nwva=082) 4.8 gm/dL 6.0-8.3 ALBUMIN (BEAKER) (test hsql=0638) 2.5 g/dL 3.5-5.0 BILIRUBIN TOTAL (BEAKER) (test rlzz=723) 0.7 mg/dL 0.2-1.2 BILIRUBIN DIRECT (BEAKER) (test vflg=139) 0.3 mg/dL 0.1-0.5 ALKALINE PHOSPHATASE (BEAKER) (test ljuw=858) 96 U/L 40-150 AST (SGOT) (BEAKER) (test omxs=163) 31 U/L 5-34 ALT (SGPT) (BEAKER) (test pnkl=259) 11 U/L 6-55 BASIC METABOLIC [id number] 04:20:00 Test Item Value Reference Range Comments SODIUM (BEAKER) (test 134 meq/L 136-145 dxwr=417) POTASSIUM (BEAKER) (test 5.0 meq/L 3.5-5.1 rfvu=628) CHLORIDE (BEAKER) (test 105 meq/L 98-107 ewei=859) CO2 (BEAKER) (test 18 meq/L 22-29 pafp=433) BLOOD UREA NITROGEN 45 mg/dL 7-21 (BEAKER) (test hcwr=507) CREATININE (BEAKER) (test 1.91 mg/dL 0.57-1.25 ioep=886) GLUCOSE RANDOM (BEAKER) 247 mg/dL 70-105 (test izrw=907) CALCIUM (BEAKER) (test 7.9 mg/dL 8.4-10.2 rdwd=055) EGFR (BEAKER) (test 27 mL/min/1.73 sq m ESTIMATED GFR IS NOT ezkj=0325) ACCURATE CREATININE CLEARANCE IN PREDICTING GLOMERULAR FILTRATION RATE. ESTIMATED GFR IS NOT APPLICABLE FOR DIALYSIS PATIENTS. OXYGEN SATURATION, [id number] 04:18:00 Test Item Value Reference Range Comments O2 SATURATION (MEASURED) (BEAKER) (test wzyq=8984) 68.0 % LACTIC ACID, ARTERIAL, WHOLE [id number] 04:12:00 Test Item Value Reference Range Comments LACTATE BLOOD ARTERIAL (2) (BEAKER) (test 1.0 mmol/L 0.5-2.2 djct=4346) Effective 08/02/2015: Units/Reference Range ChangeNew: 0.5-2.2 mmol/L Previous: 5 -20 mg/dLCBC W/PLT COUNT & AUTO [id number] 04:00:00 Test Item Value Reference Range Comments WHITE BLOOD CELL COUNT (BEAKER) (test kbmm=208) 12.0 K/ L 3.5-10.5 RED BLOOD CELL COUNT (BEAKER) (test rvbw=863) 3.32 M/ L 3.93-5.22 HEMOGLOBIN (BEAKER) (test gawz=262) 8.8 GM/DL 11.2-15.7 HEMATOCRIT (BEAKER) (test cyed=710) 28.3 % 34.1-44.9 MEAN CORPUSCULAR VOLUME (BEAKER) (test hnbc=631) 85.2 fL 79.4-94.8 MEAN CORPUSCULAR HEMOGLOBIN (BEAKER) (test 26.5 pg 25.6-32.2 sglh=296) MEAN CORPUSCULAR HEMOGLOBIN CONC (BEAKER) (test 31.1 GM/DL 32.2-35.5 nsxi=085) RED CELL DISTRIBUTION WIDTH (BEAKER) (test 15.0 % 11.7-14.4 zhox=729) PLATELET COUNT (BEAKER) (test osnl=417) 157 K/CU MM 150-450 MEAN PLATELET VOLUME (BEAKER) (test wehb=169) 10.7 fL 9.4-12.3 NUCLEATED RED BLOOD CELLS (BEAKER) (test 0 /100 WBC 0-0 hlhx=042) NEUTROPHILS RELATIVE PERCENT (BEAKER) (test 91 % cbvm=218) LYMPHOCYTES RELATIVE PERCENT (BEAKER) (test 4 % crih=262) MONOCYTES RELATIVE PERCENT (BEAKER) (test 4 % uizd=135) EOSINOPHILS RELATIVE PERCENT (BEAKER) (test 0 % cjfc=954) BASOPHILS RELATIVE PERCENT (BEAKER) (test 0 % wmyx=387) NEUTROPHILS ABSOLUTE COUNT (BEAKER) (test 10.95 K/ L 1.56-6.13 mvdr=451) LYMPHOCYTES ABSOLUTE COUNT (BEAKER) (test 0.52 K/ L 1.18-3.74 vuxn=109) MONOCYTES ABSOLUTE COUNT (BEAKER) (test 0.42 K/ L 0.24-0.36 hljb=636) EOSINOPHILS ABSOLUTE COUNT (BEAKER) (test 0.01 K/ L 0.04-0.36 jjit=614) BASOPHILS ABSOLUTE COUNT (BEAKER) (test 0.05 K/ L 0.01-0.08 xnyk=239) IMMATURE GRANULOCYTES-RELATIVE PERCENT (BEAKER) 0 % 0-1 (test enhj=1056) BLOOD GAS, [id number] 00:06:00 Test Item Value Reference Range Comments PH ARTERIAL (BEAKER) (test lqgq=786) 7.26 7.35-7.45 PCO2 ARTERIAL (BEAKER) (test apei=687) 52 mmHg 35-45 PO2 ARTERIAL (BEAKER) (test zngj=432) 88 mmHg 80-90 O2 SATURATION ARTERIAL (BEAKER) (test nkqr=930) 95.7 % 96.0-97.0 HCO3 ARTERIAL (BEAKER) (test xxhj=313) 23 mmol/L 21-29 BASE EXCESS ARTERIAL (BEAKER) (test muqa=246) -4.0 mmol/L -2.0-3.0 PATIENT TEMPERATURE (BEAKER) (test ghzi=1195) 36.4 C FIO2 (BEAKER) (test vvsi=8987) 40.0 % [id number] 18:55:00 Test Item Value Reference Range Comments PHOSPHORUS (BEAKER) (test ighu=696) 4.8 mg/dL 2.3-4.7 [id number] 18:55:00 Test Item Value Reference Range Comments MAGNESIUM (BEAKER) (test cerj=248) 2.3 mg/dL 1.6-2.6 BASIC METABOLIC [id number] 18:55:00 Test Item Value Reference Range Comments SODIUM (BEAKER) (test 136 meq/L 136-145 jgph=934) POTASSIUM (BEAKER) (test 4.5 meq/L 3.5-5.1 lrts=011) CHLORIDE (BEAKER) (test 108 meq/L 98-107 snqd=069) CO2 (BEAKER) (test 21 meq/L 22-29 sehl=998) BLOOD UREA NITROGEN 39 mg/dL 7-21 (BEAKER) (test mjjz=557) CREATININE (BEAKER) (test 1.58 mg/dL 0.57-1.25 nsau=925) GLUCOSE RANDOM (BEAKER) 172 mg/dL 70-105 (test cllb=616) CALCIUM (BEAKER) (test 7.9 mg/dL 8.4-10.2 vylm=890) EGFR (BEAKER) (test 33 mL/min/1.73 sq m ESTIMATED GFR IS NOT invb=8087) ACCURATE CREATININE CLEARANCE IN PREDICTING GLOMERULAR FILTRATION RATE. ESTIMATED GFR IS NOT APPLICABLE FOR DIALYSIS PATIENTS. LACTIC ACID, ARTERIAL, WHOLE [id number] 18:53:00 Test Item Value Reference Range Comments LACTATE BLOOD ARTERIAL (2) 0.9 mmol/L 0.5-2.2 Specimen slightly hemolyzed (BEAKER) (test mjlq=2711) Effective 08/02/2015: Units/Reference Range ChangeNew: 0.5-2.2 mmol/L Previous: 5 -20 mg/dLRAD, CHEST, 1 VIEW, NON [id number] 18:44:00Reason for exam:-> postop cardiacShould this be [...] MDReport Verified Date/Time: 2017 18:44:30 Reading Location: [facility] [id number] Consult Reading Room Electronically signed by: LISA LI M.D. on05/20/2017 06:44 PMCBC W/PLT COUNT & AUTO [id number] 18:38:00 Test Item Value Reference Range Comments WHITE BLOOD CELL COUNT (BEAKER) (test eizb=931) 8.7 K/ L 3.5-10.5 RED BLOOD CELL COUNT (BEAKER) (test sivd=277) 3.33 M/ L 3.93-5.22 HEMOGLOBIN (BEAKER) (test pibg=507) 8.7 GM/DL 11.2-15.7 HEMATOCRIT (BEAKER) (test osxf=483) 27.9 % 34.1-44.9 MEAN CORPUSCULAR VOLUME (BEAKER) (test fthj=861) 83.8 fL 79.4-94.8 MEAN CORPUSCULAR HEMOGLOBIN (BEAKER) (test 26.1 pg 25.6-32.2 dcva=999) MEAN CORPUSCULAR HEMOGLOBIN CONC (BEAKER) (test 31.2 GM/DL 32.2-35.5 leml=395) RED CELL DISTRIBUTION WIDTH (BEAKER) (test 14.9 % 11.7-14.4 fpef=307) PLATELET COUNT (BEAKER) (test wczj=144) 137 K/CU MM 150-450 MEAN PLATELET VOLUME (BEAKER) (test dmbd=257) 10.2 fL 9.4-12.3 NUCLEATED RED BLOOD CELLS (BEAKER) (test 0 /100 WBC 0-0 atpr=915) NEUTROPHILS RELATIVE PERCENT (BEAKER) (test 79 % kchp=473) LYMPHOCYTES RELATIVE PERCENT (BEAKER) (test 12 % fmud=559) MONOCYTES RELATIVE PERCENT (BEAKER) (test 7 % muyd=849) EOSINOPHILS RELATIVE PERCENT (BEAKER) (test 1 % xgnm=426) BASOPHILS RELATIVE PERCENT (BEAKER) (test 1 % rkhz=298) NEUTROPHILS ABSOLUTE COUNT (BEAKER) (test 6.83 K/ L 1.56-6.13 smis=534) LYMPHOCYTES ABSOLUTE COUNT (BEAKER) (test 1.06 K/ L 1.18-3.74 glqw=318) MONOCYTES ABSOLUTE COUNT (BEAKER) (test 0.56 K/ L 0.24-0.36 immy=844) EOSINOPHILS ABSOLUTE COUNT (BEAKER) (test 0.12 K/ L 0.04-0.36 xmcc=486) BASOPHILS ABSOLUTE COUNT (BEAKER) (test 0.04 K/ L 0.01-0.08 nycr=575) IMMATURE GRANULOCYTES-RELATIVE PERCENT (BEAKER) 1 % 0-1 (test kwby=9242) OXYGEN SATURATION, [id number] 18:36:00 Test Item Value Reference Range Comments O2 SATURATION (MEASURED) (BEAKER) (test csyt=2184) 72.5 % From distal port of IJ central venous catheterSODIUM NA-STAT [id number] 18:30 :00 Test Item Value Reference Range Comments SODIUM (BEAKER) (test yvno=043) 132 meq/L 135-148 HGB/HCT (H&H) - STAT [id number] 18:30:00 Test Item Value Reference Range Comments HEMOGLOBIN (BEAKER) (test lcgv=567) 9.4 g/dL 12.0-15.0 HEMATOCRIT (BEAKER) (test qtaz=920) 28.0 % 36.0-45.0 GLUCOSE-STAT [id number] 18:30:00 Test Item Value Reference Range Comments GLUCOSE RANDOM (BEAKER) (test eqyv=295) 159 mg/dL 70-110 BLOOD GAS, [id number] 18:30:00 Test Item Value Reference Range Comments PH ARTERIAL (BEAKER) (test rgbl=370) 7.34 7.35-7.45 PCO2 ARTERIAL (BEAKER) (test pdlp=542) 43 mmHg 35-45 PO2 ARTERIAL (BEAKER) (test ixjp=387) 76 mmHg 80-90 O2 SATURATION ARTERIAL (BEAKER) (test cnsn=375) 94.9 % 96.0-97.0 HCO3 ARTERIAL (BEAKER) (test kjom=796) 23 mmol/L 21-29 BASE EXCESS ARTERIAL (BEAKER) (test meff=428) -2.6 mmol/L -2.0-3.0 PATIENT TEMPERATURE (BEAKER) (test bhsf=5596) 36.4 C FIO2 (BEAKER) (test jcci=4726) 60.0 % CALCIUM, [id number] 18:30:00 Test Item Value Reference Range Comments CALCIUM IONIZED (BEAKER) (test taxm=212) 0.94 mmol/L 1.12-1.27 PH, BLOOD (BEAKER) (test kpog=2541) 7.34 POTASSIUM-STAT [id number] 18:28:00 Test Item Value Reference Range Comments POTASSIUM (BEAKER) (test gzzs=314) 4.4 meq/L 3.6-5.5 THROMBOELASTOGRAPH (TEG)[id number] 18:11:00 Test Item Value Reference Range Comments TEG ACTIVATED CLOTTING TIME (BEAKER) (test 6.7 minutes 4.0-7.0 psbm=8212) TEG FIBRINOGEN ACTIVITY (BEAKER) (test 66.6 degrees 61.0-73.0 ktfx=0822) TEG PLT. AGGREGATION (BEAKER) (test zszf=1973) 62.4 MM 55.0-65.0 TEG FIBRINOLYSIS (BEAKER) (test oeah=8706) 0.0 % 0.0-5.0 TGH ACTIVATED CLOTTING TIME (BEAKER) (test 6.7 minutes 4.0-7.0 sfhr=6501) TGH FIBRINOGEN ACTIVITY ([facility]) (test 69.0 degrees 61.0-73.0 dbzk=8030) TGH PLT. AGGREGATION ([facility]) (test neln=3475) 62.8 MM 55.0-65.0 TGH FIBRINOLYSIS ([facility]) (test prxf=6698) 0.0 % 0.0-5.0 [id number] 17:53:00 Test Item Value Reference Range Comments ACTIVATED CLOTTING TIME 103 sec TESTED AT [address] [facility] (test zona=481) [place] [address] [id number] 17:53:00 Test Item Value Reference Range Comments ACTIVATED CLOTTING TIME 466 sec TESTED AT [address] ([facility]) (test bmup=764) [place] [address] [id number] 17:53:00 Test Item Value Reference Range Comments ACTIVATED CLOTTING TIME 543 sec TESTED AT [address] ([facility]) (test uxyp=387) [place] [address] [id number] 17:53:00 Test Item Value Reference Range Comments ACTIVATED CLOTTING TIME 549 sec TESTED AT [address] [facility] (test jbiq=433) [place] [address] [id number] 17:53:00 Test Item Value Reference Range Comments ACTIVATED CLOTTING TIME 632 sec TESTED AT [address] [facility] (test hxzs=540) [place] [address] [id number] 17:53:00 Test Item Value Reference Range Comments ACTIVATED CLOTTING TIME 494 sec TESTED AT [address] [facility] (test imwy=542) [place] [address] [id number] 17:53:00 Test Item Value Reference Range Comments ACTIVATED CLOTTING TIME 587 sec TESTED AT [address] [facility] (test muet=883) [place] [address] [id number] 17:53:00 Test Item Value Reference Range Comments ACTIVATED CLOTTING TIME 626 sec TESTED AT [address] [facility] (test yxdg=960) [place] [address] [id number] 17:52:00 Test Item Value Reference Range Comments ACTIVATED CLOTTING TIME [address] [facility] [address] (BEAKER) (test huft=500) [place] [address] [id number] 16:54:00 Test Item Value Reference Range Comments PARTIAL THROMBOPLASTIN TIME (BEAKER) (test 40.2 seconds 22.5-36.0 rmnk=947) [id number] 16:53:00 Test Item Value Reference Range Comments FIBRINOGEN LEVEL (BEAKER) (test wlin=909) 306 mg/dl 225-434 PROTHROMBIN [id number] 16:50:00 Test Item Value Reference Range Comments PROTIME (BEAKER) (test somz=738) 19.6 seconds 11.7-14.7 INR (BEAKER) (test xqya=309) 1.7 <=5.9 RECOMMENDED COUMADIN/WARFARIN INR THERAPY RANGESSTANDARD DOSE: 2.0 - 3.0 Includes: PROPHYLAXIS forvenous thrombosis, systemic embolization; TREATMENT for venous thrombosis and/or pulmonary embolus.HIGH RISK: Target INR is 2.5-3.5 for patients with mechanical heart valves.PLATELET [id number] 16:45:00 Test Item Value Reference Range Comments PLATELET COUNT (BEAKER) (test fqvm=261) 136 K/CU MM 150-450 POTASSIUM-STAT [id number] 16:15:00 Test Item Value Reference Range Comments POTASSIUM (BEAKER) (test ysnn=029) 4.9 meq/L 3.6-5.5 BLOOD GAS, [id number] 16:15:00 Test Item Value Reference Range Comments PH ARTERIAL (BEAKER) (test dxtv=915) 7.39 7.35-7.45 PCO2 ARTERIAL (BEAKER) (test sgzj=174) 42 mmHg 35-45 PO2 ARTERIAL (BEAKER) (test sses=706) 201 mmHg 80-90 O2 SATURATION ARTERIAL (BEAKER) (test brml=224) 99.4 % 96.0-97.0 HCO3 ARTERIAL (BEAKER) (test sfyy=529) 25 mmol/L 21-29 BASE EXCESS ARTERIAL (BEAKER) (test glex=802) -0.3 mmol/L -2.0-3.0 PATIENT TEMPERATURE (BEAKER) (test ukeg=3919) 36.3 C FIO2 (BEAKER) (test wxlz=6795) 100.0 % SODIUM NA-STAT [id number] 16:15:00 Test Item Value Reference Range Comments SODIUM (BEAKER) (test wfov=365) 131 meq/L 135-148 GLUCOSE-STAT [id number] 16:15:00 Test Item Value Reference Range Comments GLUCOSE RANDOM (BEAKER) (test xlxh=380) 198 mg/dL 70-110 HGB/HCT (H&H) - STAT [id number] 16:15:00 Test Item Value Reference Range Comments HEMOGLOBIN (BEAKER) (test pmiu=625) 7.5 g/dL 12.0-15.0 HEMATOCRIT (BEAKER) (test drkl=047) 22.0 % 36.0-45.0 CALCIUM, [id number] 16:14:00 Test Item Value Reference Range Comments CALCIUM IONIZED (BEAKER) (test juoh=704) 0.91 mmol/L 1.12-1.27 PH, BLOOD (BEAKER) (test mcwf=3931) 7.39 BLOOD GAS, [id number] 15:39:00 Test Item Value Reference Range Comments PH ARTERIAL (BEAKER) (test fvgi=265) 7.44 7.35-7.45 PCO2 ARTERIAL (BEAKER) (test eryi=198) 38 mmHg 35-45 PO2 ARTERIAL (BEAKER) (test mdsc=414) 298 mmHg 80-90 O2 SATURATION ARTERIAL (BEAKER) (test esca=256) 99.7 % 96.0-97.0 HCO3 ARTERIAL (BEAKER) (test slxy=257) 25 mmol/L 21-29 BASE EXCESS ARTERIAL (BEAKER) (test rotf=602) 0.7 mmol/L -2.0-3.0 PATIENT TEMPERATURE (BEAKER) (test jzip=7342) 36.2 C FIO2 (BEAKER) (test efzh=1555) 70.0 % SODIUM NA-STAT [id number] 15:39:00 Test Item Value Reference Range Comments SODIUM (BEAKER) (test zemr=639) 131 meq/L 135-148 GLUCOSE-STAT [id number] 15:39:00 Test Item Value Reference Range Comments GLUCOSE RANDOM (BEAKER) (test ufby=546) 186 mg/dL 70-110 HGB/HCT (H&H) - STAT [id number] 15:39:00 Test Item Value Reference Range Comments HEMOGLOBIN (BEAKER) (test vugy=395) 7.5 g/dL 12.0-15.0 HEMATOCRIT (BEAKER) (test ajeg=436) 22.0 % 36.0-45.0 POTASSIUM-STAT [id number] 15:38:00 Test Item Value Reference Range Comments POTASSIUM (BEAKER) (test nygl=958) 5.3 meq/L 3.6-5.5 BLOOD GAS, [id number] 15:24:00 Test Item Value Reference Range Comments PH ARTERIAL (BEAKER) (test atpf=304) 7.47 7.35-7.45 PCO2 ARTERIAL (BEAKER) (test alir=565) 37 mmHg 35-45 PO2 ARTERIAL (BEAKER) (test cttb=599) 334 mmHg 80-90 O2 SATURATION ARTERIAL (BEAKER) (test fxdt=858) 99.8 % 96.0-97.0 HCO3 ARTERIAL (BEAKER) (test zbqz=156) 26 mmol/L 21-29 BASE EXCESS ARTERIAL (BEAKER) (test wbym=001) 2.2 mmol/L -2.0-3.0 PATIENT TEMPERATURE (BEAKER) (test kyeb=8300) 36.2 C FIO2 (BEAKER) (test yulf=6278) 70.0 % SODIUM NA-STAT [id number] 15:24:00 Test Item Value Reference Range Comments SODIUM (BEAKER) (test cpcm=740) 130 meq/L 135-148 GLUCOSE-STAT [id number] 15:24:00 Test Item Value Reference Range Comments GLUCOSE RANDOM (BEAKER) (test jdxa=278) 189 mg/dL 70-110 HGB/HCT (H&H) - STAT [id number] 15:24:00 Test Item Value Reference Range Comments HEMOGLOBIN (BEAKER) (test inzd=580) 6.7 g/dL 12.0-15.0 HEMATOCRIT (BEAKER) (test sdzi=847) 20.0 % 36.0-45.0 POTASSIUM-STAT [id number] 15:23:00 Test Item Value Reference Range Comments POTASSIUM (BEAKER) (test yvbo=826) 5.4 meq/L 3.6-5.5 BLOOD GAS, [id number] 15:07:00 Test Item Value Reference Range Comments PH ARTERIAL (BEAKER) (test nqko=957) 7.43 7.35-7.45 PCO2 ARTERIAL (BEAKER) (test njxm=684) 41 mmHg 35-45 PO2 ARTERIAL (BEAKER) (test sogd=499) 365 mmHg 80-90 O2 SATURATION ARTERIAL (BEAKER) (test xtwb=562) 99.8 % 96.0-97.0 HCO3 ARTERIAL (BEAKER) (test mwsy=758) 27 mmol/L 21-29 BASE EXCESS ARTERIAL (BEAKER) (test erua=509) 1.9 mmol/L -2.0-3.0 PATIENT TEMPERATURE (BEAKER) (test tmft=4149) 35.8 C FIO2 (BEAKER) (test fqet=9089) 70.0 % SODIUM NA-STAT [id number] 15:07:00 Test Item Value Reference Range Comments SODIUM (BEAKER) (test tjad=201) 129 meq/L 135-148 GLUCOSE-STAT [id number] 15:07:00 Test Item Value Reference Range Comments GLUCOSE RANDOM (BEAKER) (test kvcj=937) 172 mg/dL 70-110 HGB/HCT (H&H) - STAT [id number] 15:07:00 Test Item Value Reference Range Comments HEMOGLOBIN (BEAKER) (test lvan=342) 7.1 g/dL 12.0-15.0 HEMATOCRIT (BEAKER) (test lndo=041) 21.0 % 36.0-45.0 POTASSIUM-STAT [id number] 15:04:00 Test Item Value Reference Range Comments POTASSIUM (BEAKER) (test cvba=740) 5.0 meq/L 3.6-5.5 BLOOD GAS, [id number] 14:21:00 Test Item Value Reference Range Comments PH ARTERIAL (BEAKER) (test kegr=767) 7.43 7.35-7.45 PCO2 ARTERIAL (BEAKER) (test oojs=548) 38 mmHg 35-45 PO2 ARTERIAL (BEAKER) (test njld=107) 360 mmHg 80-90 O2 SATURATION ARTERIAL (BEAKER) (test mbng=597) 99.8 % 96.0-97.0 HCO3 ARTERIAL (BEAKER) (test kpat=710) 27 mmol/L 21-29 BASE EXCESS ARTERIAL (BEAKER) (test cqxo=373) 0.3 mmol/L -2.0-3.0 PATIENT TEMPERATURE (BEAKER) (test wugl=4608) 28.9 C FIO2 (BEAKER) (test hxuj=5165) 70.0 % SODIUM NA-STAT [id number] 14:21:00 Test Item Value Reference Range Comments SODIUM (BEAKER) (test vwyp=058) 133 meq/L 135-148 GLUCOSE-STAT [id number] 14:21:00 Test Item Value Reference Range Comments GLUCOSE RANDOM (BEAKER) (test rvth=079) 160 mg/dL 70-110 HGB/HCT (H&H) - STAT [id number] 14:21:00 Test Item Value Reference Range Comments HEMOGLOBIN (BEAKER) (test adbz=454) 7.5 g/dL 12.0-15.0 HEMATOCRIT (BEAKER) (test rhoc=126) 22.0 % 36.0-45.0 POTASSIUM-STAT [id number] 14:20:00 Test Item Value Reference Range Comments POTASSIUM (BEAKER) (test gcqp=148) 4.7 meq/L 3.6-5.5 BLOOD GAS, [id number] 13:58:00 Test Item Value Reference Range Comments PH ARTERIAL (BEAKER) (test fvmd=331) 7.43 7.35-7.45 PCO2 ARTERIAL (BEAKER) (test xpgz=331) 37 mmHg 35-45 PO2 ARTERIAL (BEAKER) (test jcrf=698) 448 mmHg 80-90 O2 SATURATION ARTERIAL (BEAKER) (test cicm=047) 99.9 % 96.0-97.0 HCO3 ARTERIAL (BEAKER) (test ewdr=231) 26 mmol/L 21-29 BASE EXCESS ARTERIAL (BEAKER) (test ugje=397) -0.1 mmol/L -2.0-3.0 PATIENT TEMPERATURE (BEAKER) (test hysj=2194) 29.2 C FIO2 (BEAKER) (test mhsk=0547) 80.0 % SODIUM NA-STAT [id number] 13:58:00 Test Item Value Reference Range Comments SODIUM (BEAKER) (test wwvq=020) 132 meq/L 135-148 GLUCOSE-STAT [id number] 13:58:00 Test Item Value Reference Range Comments GLUCOSE RANDOM (BEAKER) (test nfpk=182) 166 mg/dL 70-110 HGB/HCT (H&H) - STAT [id number] 13:58:00 Test Item Value Reference Range Comments HEMOGLOBIN (BEAKER) (test lihk=041) 7.5 g/dL 12.0-15.0 HEMATOCRIT (BEAKER) (test ereh=980) 22.0 % 36.0-45.0 POTASSIUM-STAT [id number] 13:57:00 Test Item Value Reference Range Comments POTASSIUM (BEAKER) (test xcbk=636) 4.7 meq/L 3.6-5.5 BLOOD GAS, [id number] 13:35:00 Test Item Value Reference Range Comments PH ARTERIAL (BEAKER) (test bmww=178) 7.51 7.35-7.45 PCO2 ARTERIAL (BEAKER) (test cmzc=311) 33 mmHg 35-45 PO2 ARTERIAL (BEAKER) (test zzno=819) 453 mmHg 80-90 O2 SATURATION ARTERIAL (BEAKER) (test evea=452) 99.9 % 96.0-97.0 HCO3 ARTERIAL (BEAKER) (test geku=922) 28 mmol/L 21-29 BASE EXCESS ARTERIAL (BEAKER) (test lckk=496) 2.7 mmol/L -2.0-3.0 PATIENT TEMPERATURE (BEAKER) (test mbii=1038) 29.2 C FIO2 (BEAKER) (test ljnk=6973) 80.0 % GLUCOSE-STAT [id number] 13:35:00 Test Item Value Reference Range Comments GLUCOSE RANDOM (BEAKER) (test nfbh=455) 130 mg/dL 70-110 HGB/HCT (H&H) - STAT [id number] 13:35:00 Test Item Value Reference Range Comments HEMOGLOBIN (BEAKER) (test ssys=253) 6.7 g/dL 12.0-15.0 HEMATOCRIT (BEAKER) (test jswk=879) 20.0 % 36.0-45.0 SODIUM NA-STAT [id number] 13:35:00 Test Item Value Reference Range Comments SODIUM (BEAKER) (test mhaa=289) 133 meq/L 135-148 POTASSIUM-STAT [id number] 13:34:00 Test Item Value Reference Range Comments POTASSIUM (BEAKER) (test xqzv=244) 4.2 meq/L 3.6-5.5 BLOOD GAS, [id number] 13:16:00 Test Item Value Reference Range Comments PH ARTERIAL (BEAKER) (test ldaj=009) 7.42 7.35-7.45 PCO2 ARTERIAL (BEAKER) (test ravk=414) 34 mmHg 35-45 PO2 ARTERIAL (BEAKER) (test fxrr=574) 375 mmHg 80-90 O2 SATURATION ARTERIAL (BEAKER) (test lkma=289) 99.8 % 96.0-97.0 HCO3 ARTERIAL (BEAKER) (test oams=429) 23 mmol/L 21-29 BASE EXCESS ARTERIAL (BEAKER) (test igim=744) -2.5 mmol/L -2.0-3.0 PATIENT TEMPERATURE (BEAKER) (test kmfj=3389) 31.5 C FIO2 (BEAKER) (test eyfo=9617) 80.0 % SODIUM NA-STAT [id number] 13:16:00 Test Item Value Reference Range Comments SODIUM (BEAKER) (test gtlp=504) 133 meq/L 135-148 HGB/HCT (H&H) - STAT [id number] 13:16:00 Test Item Value Reference Range Comments HEMOGLOBIN (BEAKER) (test dafh=051) 6.3 g/dL 12.0-15.0 HEMATOCRIT (BEAKER) (test qzee=516) 19.0 % 36.0-45.0 CALCIUM, [id number] 13:15:00 Test Item Value Reference Range Comments CALCIUM IONIZED (BEAKER) (test kuwh=472) 0.98 mmol/L 1.12-1.27 PH, BLOOD (BEAKER) (test vpgi=6637) 7.34 BLOOD GAS, [id number] 13:15:00 Test Item Value Reference Range Comments PH VENOUS (BEAKER) (test ptps=302) 7.39 7.32-7.42 PCO2 VENOUS (BEAKER) (test zhxd=339) 38 mmHg 41-51 PO2 VENOUS (BEAKER) (test sawe=287) 43 mmHg 25-40 O2 SATURATION VENOUS (BEAKER) (test svlv=688) 90.0 % 40.0-70.0 HCO3 VENOUS (BEAKER) (test qfis=961) 24 mmol/L 21-29 BASE EXCESS VENOUS (BEAKER) (test wivi=575) -2.1 mmol/L -2.0-3.0 PATIENT TEMPERATURE (BEAKER) (test kyon=1733) 31.5 C FIO2 (BEAKER) (test lvlo=6662) 80.0 % GLUCOSE-STAT [id number] 13:14:00 Test Item Value Reference Range Comments GLUCOSE RANDOM (BEAKER) (test oltl=600) 92 mg/dL 70-110 POTASSIUM-STAT [id number] 13:14:00 Test Item Value Reference Range Comments POTASSIUM (BEAKER) (test phng=002) 3.9 meq/L 3.6-5.5 BLOOD GAS, [id number] 10:54:00 Test Item Value Reference Range Comments PH ARTERIAL (BEAKER) (test kfyb=150) 7.41 7.35-7.45 PCO2 ARTERIAL (BEAKER) (test mlpe=855) 39 mmHg 35-45 PO2 ARTERIAL (BEAKER) (test lkzj=349) 254 mmHg 80-90 O2 SATURATION ARTERIAL (BEAKER) (test tbwx=502) 99.6 % 96.0-97.0 HCO3 ARTERIAL (BEAKER) (test xzqj=815) 25 mmol/L 21-29 BASE EXCESS ARTERIAL (BEAKER) (test mbuo=014) -0.3 mmol/L -2.0-3.0 PATIENT TEMPERATURE (BEAKER) (test shbe=4578) 35.4 C FIO2 (BEAKER) (test yuzu=1575) 100.0 % HGB/HCT (H&H) - STAT [id number] 10:54:00 Test Item Value Reference Range Comments HEMOGLOBIN (BEAKER) (test idbh=684) 9.3 g/dL 12.0-15.0 HEMATOCRIT (BEAKER) (test gzad=345) 27.0 % 36.0-45.0 SODIUM NA-STAT [id number] 10:54:00 Test Item Value Reference Range Comments SODIUM (BEAKER) (test tips=783) 132 meq/L 135-148 GLUCOSE-STAT [id number] 10:52:00 Test Item Value Reference Range Comments GLUCOSE RANDOM (BEAKER) (test clbb=849) 94 mg/dL 70-110 POTASSIUM-STAT [id number] 10:52:00 Test Item Value Reference Range Comments POTASSIUM (BEAKER) (test jfkv=014) 4.0 meq/L 3.6-5.5 HEMOGLOBIN [id number] 09:50:00 Test Item Value Reference Range Comments HEMOGLOBIN A1C (BEAKER) (test vakj=138) 10.6 % 4.3-6.1 PLATELET AGGREGATION: FUNCTION [id number] 08:27:00 Test Item Value Reference Range Comments WEAK ADP RESULT(BEAKER) (test 63 % 60-91 kptb=9077) PLATELET FUNCTION SCREEN 60-100% indicates normal INTERP (BEAKER) (test platelet function xxzq=4621) LOEO-QACLAZDPINJ-9545 (BEAKER) Toshia Post MD (electronic (test frwi=1420) signature) PLATELET COUNT AGG (BEAKER) 198 K/CU MM 150-450 (test jkmf=4600) for patients on clopidogrel in past two weeksPOCT-GLUCOSE [id number] 08:11: 00 Test Item Value Reference Range Comments POC-GLUCOSE METER (BEAKER) 116 mg/dL 70-[address] [facility] [address] [facility] (test woji=8638) [facility] [address] [id number] 07:10:00 Test Item Value Reference Range Comments PHOSPHORUS (BEAKER) (test xjac=312) 4.5 mg/dL 2.3-4.7 [id number] 07:10:00 Test Item Value Reference Range Comments MAGNESIUM (BEAKER) (test uhnd=354) 2.1 mg/dL 1.6-2.6 BASIC METABOLIC [id number] 07:10:00 Test Item Value Reference Range Comments SODIUM (BEAKER) (test 135 meq/L 136-145 ljmh=726) POTASSIUM (BEAKER) (test 4.4 meq/L 3.5-5.1 yakc=926) CHLORIDE (BEAKER) (test 106 meq/L 98-107 jekg=301) CO2 (BEAKER) (test 23 meq/L 22-29 vbjw=547) BLOOD UREA NITROGEN 40 mg/dL 7-21 (BEAKER) (test jqiy=695) CREATININE (BEAKER) (test 1.67 mg/dL 0.57-1.25 wtnf=709) GLUCOSE RANDOM (BEAKER) 107 mg/dL 70-105 (test tozb=492) CALCIUM (BEAKER) (test 8.3 mg/dL 8.4-10.2 kwio=896) EGFR (BEAKER) (test 31 mL/min/1.73 sq m ESTIMATED GFR IS NOT euon=4811) ACCURATE CREATININE CLEARANCE IN PREDICTING GLOMERULAR FILTRATION RATE. ESTIMATED GFR IS NOT APPLICABLE FOR DIALYSIS PATIENTS. B-TYPE NATRIURETIC FACTOR (BNP)2017-05-20 06:56:00 Test Item Value Reference Range Comments B-TYPE NATRIURETIC PEPTIDE (BEAKER) (test 552 pg/mL 0-100 fqgc=016) CBC W/PLT COUNT & AUTO [id number] 06:46:00 Test Item Value Reference Range Comments WHITE BLOOD CELL COUNT (BEAKER) (test rbeo=078) 6.2 K/ L 3.5-10.5 RED BLOOD CELL COUNT (BEAKER) (test pank=628) 3.56 M/ L 3.93-5.22 HEMOGLOBIN (BEAKER) (test lxcu=448) 9.1 GM/DL 11.2-15.7 HEMATOCRIT (BEAKER) (test mkhu=052) 29.5 % 34.1-44.9 MEAN CORPUSCULAR VOLUME (BEAKER) (test peix=112) 82.9 fL 79.4-94.8 MEAN CORPUSCULAR HEMOGLOBIN (BEAKER) (test 25.6 pg 25.6-32.2 oxne=687) MEAN CORPUSCULAR HEMOGLOBIN CONC (BEAKER) (test 30.8 GM/DL 32.2-35.5 mlij=768) RED CELL DISTRIBUTION WIDTH (BEAKER) (test 14.4 % 11.7-14.4 sdms=973) PLATELET COUNT (BEAKER) (test hjfs=502) 222 K/CU MM 150-450 MEAN PLATELET VOLUME (BEAKER) (test ycmf=280) 10.5 fL 9.4-12.3 NUCLEATED RED BLOOD CELLS (BEAKER) (test 0 /100 WBC 0-0 yrvu=371) NEUTROPHILS RELATIVE PERCENT (BEAKER) (test 47 % xpci=796) LYMPHOCYTES RELATIVE PERCENT (BEAKER) (test 39 % drpg=271) MONOCYTES RELATIVE PERCENT (BEAKER) (test 8 % fpke=789) EOSINOPHILS RELATIVE PERCENT (BEAKER) (test 5 % gozi=425) BASOPHILS RELATIVE PERCENT (BEAKER) (test 1 % vkbg=782) NEUTROPHILS ABSOLUTE COUNT (BEAKER) (test 2.90 K/ L 1.56-6.13 cazy=055) LYMPHOCYTES ABSOLUTE COUNT (BEAKER) (test 2.37 K/ L 1.18-3.74 iphd=099) MONOCYTES ABSOLUTE COUNT (BEAKER) (test 0.49 K/ L 0.24-0.36 htaf=603) EOSINOPHILS ABSOLUTE COUNT (BEAKER) (test 0.30 K/ L 0.04-0.36 xodo=183) BASOPHILS ABSOLUTE COUNT (BEAKER) (test 0.08 K/ L 0.01-0.08 ecyo=504) IMMATURE GRANULOCYTES-RELATIVE PERCENT (BEAKER) 0 % 0-1 (test ocpf=2316) CALCIUM, [id number] 06:40:00 Test Item Value Reference Range Comments CALCIUM IONIZED (BEAKER) (test ovhx=275) 1.06 mmol/L 1.12-1.27 PH, BLOOD (BEAKER) (test utle=1083) 7.39 POCT-GLUCOSE [id number] 23:22:00 Test Item Value Reference Range Comments POC-GLUCOSE METER (BEAKER) 165 mg/dL 70-[address] [facility] [address] [facility] (test dxfb=9246) [facility] [address] URINE PROTEIN ELECTROPHORESIS, [id number] 18:02:00 Test Item Value Reference Range Comments PROTEIN, URINE (BEAKER) (test 305 mg/dL 0-14 fdnl=6931) ALBUMIN URINE ELP (BEAKER) 70.9 % (test jfbp=3270) GAMMA GLOBULIN URINE (BEAKER) 29.1 % (test qcgm=7707) UPEP, ID-438 (BEAKER) (test No monoclonal bands detected. ocnp=9726) [id number] (BEAKER) Rocio Galindo MD (test zpnj=7714) (electronic signature) PROTEIN ELECTROPHORESIS, [id number] 17:57:00 Test Item Value Reference Range Comments ALBUMIN FRACTION (BEAKER) 2.5 g/dL 3.5-5.5 (test czts=783) ALPHA 1 FRACTION (BEAKER) 0.3 g/dL 0.2-0.4 (test bnzm=839) ALPHA 2 FRACTION (BEAKER) 0.9 g/dL 0.5-0.9 (test bfmg=749) BETA FRACTION (BEAKER) (test 0.8 g/dL 0.6-1.1 zajk=586) GAMMA GLOBULIN FRACTION 1.0 g/dL 0.7-1.7 (BEAKER) (test jlhw=220) INTERPRETATION-119 (BEAKER) Decreased albumin with (test pdva=4963) concurrent relative increases in all globulin fractions. No monoclonal bands detected. [id number] (BEAKER) Rocio Galindo MD (test zyed=7946) (electronic signature) PROTEIN TOTAL SERUM, SPEP 5.5 gm/dL 6.0-8.3 (BEAKER) (test mcrq=6632) POCT-GLUCOSE [id number] 17:15:00 Test Item Value Reference Range Comments POC-GLUCOSE METER (BEAKER) 209 mg/dL 70-[address] [facility] [address] [facility] (test lwsb=4467) [facility] [address] BLOOD GAS, [id number] 15:54:00 Test Item Value Reference Range Comments PH ARTERIAL (BEAKER) (test obho=757) 7.45 7.35-7.45 PCO2 ARTERIAL (BEAKER) (test yyhf=015) 38 mmHg 35-45 PO2 ARTERIAL (BEAKER) (test iiaq=947) 69 mmHg 80-90 O2 SATURATION ARTERIAL (BEAKER) (test yoig=325) 94.5 % 96.0-97.0 HCO3 ARTERIAL (BEAKER) (test gqqw=215) 25 mmol/L 21-29 BASE EXCESS ARTERIAL (BEAKER) (test uqgk=954) 1.3 mmol/L -2.0-3.0 PATIENT TEMPERATURE (BEAKER) (test vtrl=4868) 37.0 C FIO2 (BEAKER) (test nywb=3416) 36.0 % RAD, CHEST, 1 VIEW, NON [id number] 14:07:00Reason for exam:->SOB, hypoxemiaShould this be performed at the bedside?->YesFINAL REPORT Chest one view AP 05/19/2017 2:06 PM CLINICAL INDICATION: SOB, hypoxemia COMPARISON: 05/15/2017 IMPRESSION: There are right greater than left small volume pleural effusions. Adjacent dependent pulmonary opacities may reflect atelectasis or pneumonia. The cardiac silhouette is enlarged, but stable. There is central pulmonary vasculature congestion with mild interstitial edema. Signed: Eder Cespedesort Verified Date/Time: 2017 14:07:07 Reading Location:[facility] B1 [id number] Consult Reading Room POCT- GLUCOSE [id number] 11:26:00 Test Item Value Reference Range Comments POC-GLUCOSE METER (BEAKER) 262 mg/dL 70-110 TESTED AT [place] [id number] [facility] (test iyvn=9935) [facility] [address] POCT-GLUCOSE [id number] 07:37:00 Test Item Value Reference Range Comments POC-GLUCOSE METER (BEAKER) 170 mg/dL 70-110 TESTED AT [address] (test ycyr=1441) [facility] [address] CALCIUM, [id number] 06:06:00 Test Item Value Reference Range Comments CALCIUM IONIZED (BEAKER) (test rreb=628) 1.05 mmol/L 1.12-1.27 PH, BLOOD (BEAKER) (test vbkk=1689) 7.41 [id number] 05:38:00 Test Item Value Reference Range Comments PHOSPHORUS (BEAKER) (test ckjt=543) 3.9 mg/dL 2.3-4.7 [id number] 05:38:00 Test Item Value Reference Range Comments MAGNESIUM (BEAKER) (test vwrg=795) 2.2 mg/dL 1.6-2.6 BASIC METABOLIC [id number] 05:38:00 Test Item Value Reference Range Comments SODIUM (BEAKER) (test 135 meq/L 136-145 rrpz=114) POTASSIUM (BEAKER) (test 4.5 meq/L 3.5-5.1 cfio=971) CHLORIDE (BEAKER) (test 105 meq/L 98-107 baab=800) CO2 (BEAKER) (test 24 meq/L 22-29 yqsw=903) BLOOD UREA NITROGEN 41 mg/dL 7-21 (BEAKER) (test qirm=512) CREATININE (BEAKER) (test 1.74 mg/dL 0.57-1.25 syij=923) GLUCOSE RANDOM (BEAKER) 174 mg/dL 70-105 (test ongo=055) CALCIUM (BEAKER) (test 8.4 mg/dL 8.4-10.2 haif=843) EGFR (BEAKER) (test 30 mL/min/1.73 sq m ESTIMATED GFR IS NOT klji=8711) ACCURATE CREATININE CLEARANCE IN PREDICTING GLOMERULAR FILTRATION RATE. ESTIMATED GFR IS NOT APPLICABLE FOR DIALYSIS PATIENTS. CBC W/PLT COUNT & AUTO [id number] 05:09:00 Test Item Value Reference Range Comments WHITE BLOOD CELL COUNT (BEAKER) (test cvje=832) 8.5 K/ L 3.5-10.5 RED BLOOD CELL COUNT (BEAKER) (test wycn=444) 3.54 M/ L 3.93-5.22 HEMOGLOBIN (BEAKER) (test tjhv=135) 9.1 GM/DL 11.2-15.7 HEMATOCRIT (BEAKER) (test afxu=221) 29.1 % 34.1-44.9 MEAN CORPUSCULAR VOLUME (BEAKER) (test ecxr=707) 82.2 fL 79.4-94.8 MEAN CORPUSCULAR HEMOGLOBIN (BEAKER) (test 25.7 pg 25.6-32.2 gnda=326) MEAN CORPUSCULAR HEMOGLOBIN CONC (BEAKER) (test 31.3 GM/DL 32.2-35.5 blob=523) RED CELL DISTRIBUTION WIDTH (BEAKER) (test 14.5 % 11.7-14.4 lajl=777) PLATELET COUNT (BEAKER) (test lakg=603) 201 K/CU MM 150-450 MEAN PLATELET VOLUME (BEAKER) (test lhux=715) 10.7 fL 9.4-12.3 NUCLEATED RED BLOOD CELLS (BEAKER) (test 0 /100 WBC 0-0 nzda=698) NEUTROPHILS RELATIVE PERCENT (BEAKER) (test 56 % ngro=477) LYMPHOCYTES RELATIVE PERCENT (BEAKER) (test 32 % nfru=958) MONOCYTES RELATIVE PERCENT (BEAKER) (test 7 % mbzr=876) EOSINOPHILS RELATIVE PERCENT (BEAKER) (test 4 % ytjo=619) BASOPHILS RELATIVE PERCENT (BEAKER) (test 1 % bgic=457) NEUTROPHILS ABSOLUTE COUNT (BEAKER) (test 4.80 K/ L 1.56-6.13 pyyj=025) LYMPHOCYTES ABSOLUTE COUNT (BEAKER) (test 2.73 K/ L 1.18-3.74 yrkm=886) MONOCYTES ABSOLUTE COUNT (BEAKER) (test 0.62 K/ L 0.24-0.36 qour=145) EOSINOPHILS ABSOLUTE COUNT (BEAKER) (test 0.30 K/ L 0.04-0.36 dpfo=637) BASOPHILS ABSOLUTE COUNT (BEAKER) (test 0.06 K/ L 0.01-0.08 zbxk=055) IMMATURE GRANULOCYTES-RELATIVE PERCENT (BEAKER) 0 % 0-1 (test ycon=3808) POCT-GLUCOSE [id number] 22:08:00 Test Item Value Reference Range Comments POC-GLUCOSE METER (BEAKER) 263 mg/dL 70-110 TESTED AT [address] (test lrkx=0784) [place] [id number] POCT-GLUCOSE [id number] 17:20:00 Test Item Value Reference Range Comments POC-GLUCOSE METER (BEAKER) 233 mg/dL 70-110 TESTED AT [address] (test gnyo=1622) [place] [id number] POCT-GLUCOSE [id number] 08:28:00 Test Item Value Reference Range Comments POC-GLUCOSE METER (BEAKER) 154 mg/dL 70-110 TESTED AT [address] (test rsgg=5277) [place] [id number] BASIC METABOLIC [id number] 06:41:00 Test Item Value Reference Range Comments SODIUM (BEAKER) (test 135 meq/L 136-145 frtl=528) POTASSIUM (BEAKER) (test 4.6 meq/L 3.5-5.1 kypp=988) CHLORIDE (BEAKER) (test 104 meq/L 98-107 zcfz=545) CO2 (BEAKER) (test 23 meq/L 22-29 mwqk=271) BLOOD UREA NITROGEN 39 mg/dL 7-21 (BEAKER) (test mxel=757) CREATININE (BEAKER) (test 1.77 mg/dL 0.57-1.25 njsk=644) GLUCOSE RANDOM (BEAKER) 173 mg/dL 70-105 (test qcoy=098) CALCIUM (BEAKER) (test 8.6 mg/dL 8.4-10.2 ejmt=676) EGFR (BEAKER) (test 29 mL/min/1.73 sq m ESTIMATED GFR IS NOT tyov=3162) ACCURATE CREATININE CLEARANCE IN PREDICTING GLOMERULAR FILTRATION RATE. ESTIMATED GFR IS NOT APPLICABLE FOR DIALYSIS PATIENTS. [id number] 06:35:00 Test Item Value Reference Range Comments PHOSPHORUS (BEAKER) (test trqj=332) 4.1 mg/dL 2.3-4.7 [id number] 06:35:00 Test Item Value Reference Range Comments MAGNESIUM (BEAKER) (test muvz=972) 2.1 mg/dL 1.6-2.6 CALCIUM, [id number] 06:22:00 Test Item Value Reference Range Comments CALCIUM IONIZED (BEAKER) (test trnl=486) 1.10 mmol/L 1.12-1.27 PH, BLOOD (BEAKER) (test hfih=5162) 7.38 CBC W/PLT COUNT & AUTO [id number] 06:04:00 Test Item Value Reference Range Comments WHITE BLOOD CELL COUNT (BEAKER) (test jrez=369) 9.3 K/ L 3.5-10.5 RED BLOOD CELL COUNT (BEAKER) (test scvf=429) 4.15 M/ L 3.93-5.22 HEMOGLOBIN (BEAKER) (test vkjp=082) 10.6 GM/DL 11.2-15.7 HEMATOCRIT (BEAKER) (test jgvk=721) 34.2 % 34.1-44.9 MEAN CORPUSCULAR VOLUME (BEAKER) (test avxh=230) 82.4 fL 79.4-94.8 MEAN CORPUSCULAR HEMOGLOBIN (BEAKER) (test 25.5 pg 25.6-32.2 thug=744) MEAN CORPUSCULAR HEMOGLOBIN CONC (BEAKER) (test 31.0 GM/DL 32.2-35.5 ulzn=014) RED CELL DISTRIBUTION WIDTH (BEAKER) (test 14.6 % 11.7-14.4 tvvm=019) PLATELET COUNT (BEAKER) (test apgj=535) 183 K/CU MM 150-450 MEAN PLATELET VOLUME (BEAKER) (test wlkt=955) 11.0 fL 9.4-12.3 NUCLEATED RED BLOOD CELLS (BEAKER) (test 0 /100 WBC 0-0 qdjk=792) NEUTROPHILS RELATIVE PERCENT (BEAKER) (test 66 % vzky=160) LYMPHOCYTES RELATIVE PERCENT (BEAKER) (test 24 % byoj=808) MONOCYTES RELATIVE PERCENT (BEAKER) (test 7 % nnki=335) EOSINOPHILS RELATIVE PERCENT (BEAKER) (test 3 % hxzd=705) BASOPHILS RELATIVE PERCENT (BEAKER) (test 1 % acpx=368) NEUTROPHILS ABSOLUTE COUNT (BEAKER) (test 6.15 K/ L 1.56-6.13 gojs=065) LYMPHOCYTES ABSOLUTE COUNT (BEAKER) (test 2.20 K/ L 1.18-3.74 vump=290) MONOCYTES ABSOLUTE COUNT (BEAKER) (test 0.62 K/ L 0.24-0.36 xqcj=092) EOSINOPHILS ABSOLUTE COUNT (BEAKER) (test 0.24 K/ L 0.04-0.36 lixm=204) BASOPHILS ABSOLUTE COUNT (BEAKER) (test 0.06 K/ L 0.01-0.08 rtgu=839) IMMATURE GRANULOCYTES-RELATIVE PERCENT (BEAKER) 0 % 0-1 (test iquc=9328) POCT-GLUCOSE [id number] 03:44:00 Test Item Value Reference Range Comments POC-GLUCOSE METER (BEAKER) 220 mg/dL 70-110 TESTED AT [address] (test mkgk=8092) [place] [address] POCT-GLUCOSE [id number] 18:27:00 Test Item Value Reference Range Comments POC-GLUCOSE METER (BEAKER) 256 mg/dL 70-110 TESTED AT [address] (test kmfb=1331) [place] [address] POCT-GLUCOSE [id number] 15:45:00 Test Item Value Reference Range Comments POC-GLUCOSE METER (BEAKER) 278 mg/dL 70-110 TESTED AT [address] (test jrfc=3962) [place] [address] POCT-GLUCOSE [id number] 13:22:00 Test Item Value Reference Range Comments POC-GLUCOSE METER (BEAKER) 278 mg/dL 70-110 TESTED AT [address] (test ryqm=6287) [place] [address] PLATELET AGGREGATION: FUNCTION [id number] 13:18:00 Test Item Value Reference Range Comments WEAK ADP RESULT(BEAKER) (test 66 % 60-91 hhab=6188) PLATELET FUNCTION SCREEN 60-100% indicates normal INTERP (BEAKER) (test platelet function duhn=1637) [id number] (BEAKER) Rigoberto Duenas MD (electronic (test kozr=5879) signature) PLATELET COUNT AGG (BEAKER) 204 K/CU MM 150-450 (test knfg=3191) POCT-GLUCOSE [id number] 08:27:00 Test Item Value Reference Range Comments POC-GLUCOSE METER (BEAKER) 189 mg/dL 70-[address] [facility] [address] [facility] (test uhbl=8496) [facility] [address] CALCIUM, [id number] 06:12:00 Test Item Value Reference Range Comments CALCIUM IONIZED (BEAKER) (test prep=608) 1.07 mmol/L 1.12-1.27 PH, BLOOD (BEAKER) (test sgxc=4517) 7.36 [id number] 05:43:00 Test Item Value Reference Range Comments PHOSPHORUS (BEAKER) (test nwzo=727) 3.6 mg/dL 2.3-4.7 [id number] 05:43:00 Test Item Value Reference Range Comments MAGNESIUM (BEAKER) (test tiiv=439) 2.1 mg/dL 1.6-2.6 BASIC METABOLIC [id number] 05:43:00 Test Item Value Reference Range Comments SODIUM (BEAKER) (test 137 meq/L 136-145 gkaj=481) POTASSIUM (BEAKER) (test 4.7 meq/L 3.5-5.1 kxod=313) CHLORIDE (BEAKER) (test 107 meq/L 98-107 fclz=102) CO2 (BEAKER) (test 24 meq/L 22-29 qlch=042) BLOOD UREA NITROGEN 38 mg/dL 7-21 (BEAKER) (test xhao=547) CREATININE (BEAKER) (test 1.72 mg/dL 0.57-1.25 jfjm=683) GLUCOSE RANDOM (BEAKER) 198 mg/dL 70-105 (test hiya=285) CALCIUM (BEAKER) (test 8.3 mg/dL 8.4-10.2 gvoq=057) EGFR (BEAKER) (test 30 mL/min/1.73 sq m ESTIMATED GFR IS NOT xjjm=9129) ACCURATE CREATININE CLEARANCE IN PREDICTING GLOMERULAR FILTRATION RATE. ESTIMATED GFR IS NOT APPLICABLE FOR DIALYSIS PATIENTS. CBC W/PLT COUNT & AUTO [id number] 05:05:00 Test Item Value Reference Range Comments WHITE BLOOD CELL COUNT (BEAKER) (test issj=947) 8.6 K/ L 3.5-10.5 RED BLOOD CELL COUNT (BEAKER) (test zelo=953) 4.20 M/ L 3.93-5.22 HEMOGLOBIN (BEAKER) (test qyal=273) 10.7 GM/DL 11.2-15.7 HEMATOCRIT (BEAKER) (test qpex=839) 34.7 % 34.1-44.9 MEAN CORPUSCULAR VOLUME (BEAKER) (test rdkq=969) 82.6 fL 79.4-94.8 MEAN CORPUSCULAR HEMOGLOBIN (BEAKER) (test 25.5 pg 25.6-32.2 rvfg=237) MEAN CORPUSCULAR HEMOGLOBIN CONC (BEAKER) (test 30.8 GM/DL 32.2-35.5 rdxf=651) RED CELL DISTRIBUTION WIDTH (BEAKER) (test 14.7 % 11.7-14.4 jtzv=571) PLATELET COUNT (BEAKER) (test eccw=294) 198 K/CU MM 150-450 MEAN PLATELET VOLUME (BEAKER) (test jcjj=774) 11.1 fL 9.4-12.3 NUCLEATED RED BLOOD CELLS (BEAKER) (test 0 /100 WBC 0-0 tumf=858) NEUTROPHILS RELATIVE PERCENT (BEAKER) (test 63 % ouwb=086) LYMPHOCYTES RELATIVE PERCENT (BEAKER) (test 28 % rsbl=831) MONOCYTES RELATIVE PERCENT (BEAKER) (test 6 % mhqb=999) EOSINOPHILS RELATIVE PERCENT (BEAKER) (test 3 % ygjz=437) BASOPHILS RELATIVE PERCENT (BEAKER) (test 1 % xeei=692) NEUTROPHILS ABSOLUTE COUNT (BEAKER) (test 5.41 K/ L 1.56-6.13 qkzl=621) LYMPHOCYTES ABSOLUTE COUNT (BEAKER) (test 2.37 K/ L 1.18-3.74 zehz=316) MONOCYTES ABSOLUTE COUNT (BEAKER) (test 0.50 K/ L 0.24-0.36 pomh=121) EOSINOPHILS ABSOLUTE COUNT (BEAKER) (test 0.27 K/ L 0.04-0.36 nztv=834) BASOPHILS ABSOLUTE COUNT (BEAKER) (test 0.06 K/ L 0.01-0.08 gtxu=807) IMMATURE GRANULOCYTES-RELATIVE PERCENT (BEAKER) 0 % 0-1 (test usnq=3140) POCT-GLUCOSE [id number] 21:32:00 Test Item Value Reference Range Comments POC-GLUCOSE METER (BEAKER) 176 mg/dL 70-110 TESTED AT [address] (test dbos=5194) [place] [address] POCT-GLUCOSE [id number] 20:27:00 Test Item Value Reference Range Comments POC-GLUCOSE METER (BEAKER) 161 mg/dL 70-110 TESTED AT [address] (test isrp=8649) [place] [address] POCT-GLUCOSE [id number] 18:23:00 Test Item Value Reference Range Comments POC-GLUCOSE METER (BEAKER) 185 mg/dL 70-110 TESTED AT [address] (test wpmf=4820) [place] [address] POCT-GLUCOSE [id number] 13:26:00 Test Item Value Reference Range Comments POC-GLUCOSE METER (BEAKER) 282 mg/dL 70-110 TESTED AT [address] (test ybir=1379) [place] [address] URINE [id number] 10:12:00 Test Item Value Reference Range Comments CULTURE (BEAKER) (test ftjj=4882) >100,000 col/mL skin todd POCT-GLUCOSE [id number] 09:01:00 Test Item Value Reference Range Comments POC-GLUCOSE METER (BEAKER) 268 mg/dL 70-110 TESTED AT [address] (test ytqt=3417) [place] [address] CALCIUM, [id number] 05:39:00 Test Item Value Reference Range Comments CALCIUM IONIZED (BEAKER) (test kxzn=427) 0.84 mmol/L 1.12-1.27 PH, BLOOD (BEAKER) (test yqcs=2398) 7.35 BASIC METABOLIC [id number] 05:07:00 Test Item Value Reference Range Comments SODIUM (BEAKER) (test 135 meq/L 136-145 kvnj=210) POTASSIUM (BEAKER) (test 4.9 meq/L 3.5-5.1 ivlm=943) CHLORIDE (BEAKER) (test 106 meq/L 98-107 lmro=397) CO2 (BEAKER) (test 22 meq/L 22-29 dwzx=988) BLOOD UREA NITROGEN 43 mg/dL 7-21 (BEAKER) (test tsju=408) CREATININE (BEAKER) (test 2.00 mg/dL 0.57-1.25 fswt=915) GLUCOSE RANDOM (BEAKER) 161 mg/dL 70-105 (test kacy=409) CALCIUM (BEAKER) (test 8.2 mg/dL 8.4-10.2 vcnp=720) EGFR (BEAKER) (test 25 mL/min/1.73 sq m ESTIMATED GFR IS NOT omxn=3147) ACCURATE CREATININE CLEARANCE IN PREDICTING GLOMERULAR FILTRATION RATE. ESTIMATED GFR IS NOT APPLICABLE FOR DIALYSIS PATIENTS. [id number] 05:06:00 Test Item Value Reference Range Comments PHOSPHORUS (BEAKER) (test hmrl=256) 3.2 mg/dL 2.3-4.7 [id number] 05:06:00 Test Item Value Reference Range Comments MAGNESIUM (BEAKER) (test aeqv=295) 2.3 mg/dL 1.6-2.6 CBC W/PLT COUNT & AUTO [id number] 04:42:00 Test Item Value Reference Range Comments WHITE BLOOD CELL COUNT (BEAKER) (test nmoa=249) 9.5 K/ L 3.5-10.5 RED BLOOD CELL COUNT (BEAKER) (test vkyk=466) 4.17 M/ L 3.93-5.22 HEMOGLOBIN (BEAKER) (test areg=665) 10.5 GM/DL 11.2-15.7 HEMATOCRIT (BEAKER) (test ehsm=872) 34.2 % 34.1-44.9 MEAN CORPUSCULAR VOLUME (BEAKER) (test cjil=120) 82.0 fL 79.4-94.8 MEAN CORPUSCULAR HEMOGLOBIN (BEAKER) (test 25.2 pg 25.6-32.2 ygej=245) MEAN CORPUSCULAR HEMOGLOBIN CONC (BEAKER) (test 30.7 GM/DL 32.2-35.5 cpjz=757) RED CELL DISTRIBUTION WIDTH (BEAKER) (test 14.6 % 11.7-14.4 raou=937) PLATELET COUNT (BEAKER) (test rdff=010) 177 K/CU MM 150-450 MEAN PLATELET VOLUME (BEAKER) (test cfla=703) 11.1 fL 9.4-12.3 NUCLEATED RED BLOOD CELLS (BEAKER) (test 0 /100 WBC 0-0 jhqk=595) NEUTROPHILS RELATIVE PERCENT (BEAKER) (test 55 % bmxf=323) LYMPHOCYTES RELATIVE PERCENT (BEAKER) (test 36 % cdxy=369) MONOCYTES RELATIVE PERCENT (BEAKER) (test 6 % nnve=823) EOSINOPHILS RELATIVE PERCENT (BEAKER) (test 2 % qtzv=462) BASOPHILS RELATIVE PERCENT (BEAKER) (test 1 % kzvi=207) NEUTROPHILS ABSOLUTE COUNT (BEAKER) (test 5.20 K/ L 1.56-6.13 zcav=417) LYMPHOCYTES ABSOLUTE COUNT (BEAKER) (test 3.37 K/ L 1.18-3.74 zlgu=364) MONOCYTES ABSOLUTE COUNT (BEAKER) (test 0.59 K/ L 0.24-0.36 theg=495) EOSINOPHILS ABSOLUTE COUNT (BEAKER) (test 0.21 K/ L 0.04-0.36 hcgd=996) BASOPHILS ABSOLUTE COUNT (BEAKER) (test 0.07 K/ L 0.01-0.08 uccb=519) IMMATURE GRANULOCYTES-RELATIVE PERCENT (BEAKER) 0 % 0-1 (test suyj=1469) RHEUMATOID FACTOR AB, REFLEX TO [id number] 01:52:00 Test Item Value Reference Range Comments RHEUMATOID FACTOR (BEAKER) (test djvy=896) Negative POCT-GLUCOSE [id number] 21:57:00 Test Item Value Reference Range Comments POC-GLUCOSE METER (BEAKER) 105 mg/dL 70-110 TESTED AT [place] [address] [address] (test sgrv=9755) [facility] [address] POCT-GLUCOSE [id number] 18:11:00 Test Item Value Reference Range Comments POC-GLUCOSE METER (BEAKER) 312 mg/dL 70-110 Notified GUILHERME PIERRE/TESTED AT [facility] (test uszc=1298) [facility] [address] PET, CARDIAC PERFUSION MULTIPLE STUDIES, REST AND [id number] 16:28: 00Reason for exam:->pvcs, known cadFINAL REPORT PROCEDURE: Rest/Stress MYOCARDIAL PERFUSION PET with regadenoson\XA9\ CPT CODE: [id number] INDICATION: Defined extent and severity of known [...] 23% . LVEF at stress is 36%. [employer] CT images revealed a right pleural effusion [...] pleural and pericardial effusions. 7. No previous [facility] study for comparison. NONINVASIVE RISK STRATIFICATION: The above findings are considered high risk (>3% annual mortality rate) based on the following criteria: - Severe resting left ventricular dysfunction (LVEF 35%)- Stress-induced large perfusion defect ( particularly if anterior)(JACC. 2012;59(9):857-81.) Signed: Last Lopez MDReport Verified Date/Time: 05/15/2017 16:28:12 Reading Location: [address] [facility] Med ReadingRoom RAD, CHEST, 1 VIEW, NON [id number] 15:56:00Reason for exam:->SOBShould this be performed at the bedside?->YesFINAL REPORT Comparison: 05/14/2017 TECHNIQUE: Single view of the chest FINDINGS: There is a small right pleural effusion with nonspecific airspace disease. This is unchanged. Left lung is grossly clear. Cardiac silhouette is enlarged. IMPRESSION: 1. No acute cardiopulmonary disease. Signed : Sixto Monk MDReport Verified Date/Time: 05/15/2017 15:56:39 Reading Location : [facility] Radiology Reading Room POCT-GLUCOSE [id number] 12:54:00 Test Item Value Reference Range Comments POC-GLUCOSE METER (BEAKER) 308 mg/dL 70-110 Notified GUILHERME PIERRE/TESTED AT [facility] (test nbcl=4591) [address] [facility] [address] U/S, RENAL WITH [id number] 11:04:00Reason for exam:->tracy, htnShould this be performed [...] Verified Date/Time: 05/15/2017 11:04:01 Reading Location : [address] Ultrasound Reading Room ANA TITER AND [id number] 10:57:00 Test Item Value Reference Range Comments ROGER TITER (BEAKER) (test pujb=8476) :160 ROGER PATTERN (BEAKER) (test gipg=8244) Speckled ANTI-NUCLEAR ANTIBODY (ROGER)2017-05-15 10:56:00 Test Item Value Reference Range Comments ANTI-NUCLEAR ANTIBODY (ROGER) (BEAKER) (test Positive Negative ztaa=825) CALCIUM, [id number] 06:00:00 Test Item Value Reference Range Comments CALCIUM IONIZED (BEAKER) (test xxnq=805) 1.07 mmol/L 1.12-1.27 PH, BLOOD (BEAKER) (test qrxh=3976) 7.28 HEPATITIS PANEL, [id number] 05:01:00 Test Item Value Reference Range Comments HEPATITIS A IGM ANTIBODY (BEAKER) (test Nonreactive Nonreactive teug=733) HEPATITIS B CORE IGM ANTIBODY (BEAKER) (test Nonreactive Nonreactive ftne=337) HEPATITIS C ANTIBODY (BEAKER) (test hese=022) Nonreactive Nonreactive HEPATITIS B SURFACE ANTIGEN (2) (BEAKER) (test Nonreactive Nonreactive ykjv=0095) BASIC METABOLIC [id number] 04:48:00 Test Item Value Reference Range Comments SODIUM (BEAKER) (test 135 meq/L 136-145 ulhb=217) POTASSIUM (BEAKER) (test 5.2 meq/L 3.5-5.1 imir=599) CHLORIDE (BEAKER) (test 104 meq/L 98-107 oppz=936) CO2 (BEAKER) (test 22 meq/L 22-29 nvvs=659) BLOOD UREA NITROGEN 46 mg/dL 7-21 (BEAKER) (test lrhq=347) CREATININE (BEAKER) (test 2.64 mg/dL 0.57-1.25 baty=377) GLUCOSE RANDOM (BEAKER) 176 mg/dL 70-105 (test qnwc=607) CALCIUM (BEAKER) (test 8.2 mg/dL 8.4-10.2 mbjy=913) EGFR (BEAKER) (test 18 mL/min/1.73 sq m ESTIMATED GFR IS NOT aqxg=1834) ACCURATE CREATININE CLEARANCE IN PREDICTING GLOMERULAR FILTRATION RATE. ESTIMATED GFR IS NOT APPLICABLE FOR DIALYSIS PATIENTS. URIC [id number] 04:41:00 Test Item Value Reference Range Comments URIC ACID (BEAKER) (test auhw=141) 10.3 mg/dL 2.6-7.2 [id number] 04:41:00 Test Item Value Reference Range Comments MAGNESIUM (BEAKER) (test vpdg=672) 2.0 mg/dL 1.6-2.6 [id number] 04:41:00 Test Item Value Reference Range Comments PHOSPHORUS (BEAKER) (test mrsb=069) 4.2 mg/dL 2.3-4.7 COMPLEMENT COMPONENT [id number] 04:38:00 Test Item Value Reference Range Comments C4 COMPLEMENT (BEAKER) (test xqkx=379) 28 mg/dL 15-57 COMPLEMENT COMPONENT [id number] 04:38:00 Test Item Value Reference Range Comments C3 COMPLEMENT (BEAKER) (test wyyf=262) 103 mg/dL 82-193 CBC W/PLT COUNT & AUTO [id number] 04:22:00 Test Item Value Reference Range Comments WHITE BLOOD CELL COUNT (BEAKER) (test mynp=037) 11.0 K/ L 3.5-10.5 RED BLOOD CELL COUNT (BEAKER) (test jack=433) 4.25 M/ L 3.93-5.22 HEMOGLOBIN (BEAKER) (test imer=788) 10.6 GM/DL 11.2-15.7 HEMATOCRIT (BEAKER) (test donb=630) 35.3 % 34.1-44.9 MEAN CORPUSCULAR VOLUME (BEAKER) (test xomc=688) 83.1 fL 79.4-94.8 MEAN CORPUSCULAR HEMOGLOBIN (BEAKER) (test 24.9 pg 25.6-32.2 otpn=556) MEAN CORPUSCULAR HEMOGLOBIN CONC (BEAKER) (test 30.0 GM/DL 32.2-35.5 rpnx=820) RED CELL DISTRIBUTION WIDTH (BEAKER) (test 14.5 % 11.7-14.4 cpsb=123) PLATELET COUNT (BEAKER) (test jsiq=513) 185 K/CU MM 150-450 MEAN PLATELET VOLUME (BEAKER) (test xevu=553) 10.9 fL 9.4-12.3 NUCLEATED RED BLOOD CELLS (BEAKER) (test 0 /100 WBC 0-0 zrkk=680) NEUTROPHILS RELATIVE PERCENT (BEAKER) (test 61 % zidm=328) LYMPHOCYTES RELATIVE PERCENT (BEAKER) (test 31 % pfvx=688) MONOCYTES RELATIVE PERCENT (BEAKER) (test 5 % bcux=178) EOSINOPHILS RELATIVE PERCENT (BEAKER) (test 2 % dhub=948) BASOPHILS RELATIVE PERCENT (BEAKER) (test 1 % upoz=149) NEUTROPHILS ABSOLUTE COUNT (BEAKER) (test 6.72 K/ L 1.56-6.13 lnqd=723) LYMPHOCYTES ABSOLUTE COUNT (BEAKER) (test 3.35 K/ L 1.18-3.74 cocd=138) MONOCYTES ABSOLUTE COUNT (BEAKER) (test 0.59 K/ L 0.24-0.36 pkgi=151) EOSINOPHILS ABSOLUTE COUNT (BEAKER) (test 0.21 K/ L 0.04-0.36 vedy=628) BASOPHILS ABSOLUTE COUNT (BEAKER) (test 0.06 K/ L 0.01-0.08 csus=197) IMMATURE GRANULOCYTES-RELATIVE PERCENT (BEAKER) 0 % 0-1 (test fwiv=7650) POCT-GLUCOSE [id number] 21:46:00 Test Item Value Reference Range Comments POC-GLUCOSE METER (BEAKER) 173 mg/dL 70-110 TESTED AT [address] (test rrhd=2643) [place] [address] POCT-GLUCOSE [id number] 21:46:00 Test Item Value Reference Range Comments POC-GLUCOSE METER (BEAKER) 154 mg/dL 70-110 TESTED AT [address] (test tkux=2248) [place] [address] POCT-GLUCOSE [id number] 18:17:00 Test Item Value Reference Range Comments POC-GLUCOSE METER (BEAKER) 175 mg/dL 70-110 TESTED AT [address] (test rfxd=8140) [place] [address] RAD, CHEST, 1 VIEW, NON [id number] 14:56:00Reason for exam:->SOBShould this be performed at the bedside?->YesFINAL REPORT INDICATION: SOB COMPARISON: May 13, 2017 TECHNIQUE: Chest radiograph, single view, portable technique. FINDINGS / IMPRESSION: Enlarged heart shadow, small rightpleural effusion, and pulmonary venous congestion, again demonstrated. No pneumothorax or consolidation. Osseous structures unremarkable. Signed: Satnam Jean [facility] Verified Date/Time: 05/14/2017 14:56:58 Reading Location: [facility] Mammo Reading Room POCT-GLUCOSE [id number] 12:18:00 Test Item Value Reference Range Comments POC-GLUCOSE METER (BEAKER) 313 mg/dL 70-110 TESTED AT [address] (test nnth=4866) [place] [address] HIV-1 ANTIGEN WITH HIV-1/2 [id number] 12:07:00 Test Item Value Reference Range Comments HIV-1 ANTIGEN WITH HIV 1\T\2 ANTIBODY (2) Nonreactive Nonreactive (BEAKER) (test wikb=4165) CALCIUM, [id number] 06:37:00 Test Item Value Reference Range Comments CALCIUM IONIZED (BEAKER) (test udfv=085) 1.08 mmol/L 1.12-1.27 PH, BLOOD (BEAKER) (test eeps=9579) 7.25 BASIC METABOLIC [id number] 06:26:00 Test Item Value Reference Range Comments SODIUM (BEAKER) (test 134 meq/L 136-145 wydh=079) POTASSIUM (BEAKER) (test 5.1 meq/L 3.5-5.1 qbfj=088) CHLORIDE (BEAKER) (test 103 meq/L 98-107 lodc=691) CO2 (BEAKER) (test 25 meq/L 22-29 sgpi=640) BLOOD UREA NITROGEN 45 mg/dL 7-21 (BEAKER) (test xgrz=245) CREATININE (BEAKER) (test 2.92 mg/dL 0.57-1.25 yedz=219) GLUCOSE RANDOM (BEAKER) 163 mg/dL 70-105 (test xezn=376) CALCIUM (BEAKER) (test 8.1 mg/dL 8.4-10.2 qnqx=498) EGFR (BEAKER) (test 16 mL/min/1.73 sq m ESTIMATED GFR IS NOT qast=6710) ACCURATE CREATININE CLEARANCE IN PREDICTING GLOMERULAR FILTRATION RATE. ESTIMATED GFR IS NOT APPLICABLE FOR DIALYSIS PATIENTS. B-TYPE NATRIURETIC FACTOR (BNP)2017-05-14 06:26:00 Test Item Value Reference Range Comments B-TYPE NATRIURETIC PEPTIDE (BEAKER) (test 474 pg/mL 0-100 jdpl=839) [id number] 06:25:00 Test Item Value Reference Range Comments PHOSPHORUS (BEAKER) (test hjow=481) 5.7 mg/dL 2.3-4.7 [id number] 06:25:00 Test Item Value Reference Range Comments MAGNESIUM (BEAKER) (test rpek=491) 1.5 mg/dL 1.6-2.6 CBC W/PLT COUNT & AUTO [id number] 06:07:00 Test Item Value Reference Range Comments WHITE BLOOD CELL COUNT (BEAKER) (test wpfe=053) 8.9 K/ L 3.5-10.5 RED BLOOD CELL COUNT (BEAKER) (test shtn=124) 4.32 M/ L 3.93-5.22 HEMOGLOBIN (BEAKER) (test vcpu=900) 11.0 GM/DL 11.2-15.7 HEMATOCRIT (BEAKER) (test dyac=798) 36.6 % 34.1-44.9 MEAN CORPUSCULAR VOLUME (BEAKER) (test mssd=796) 84.7 fL 79.4-94.8 MEAN CORPUSCULAR HEMOGLOBIN (BEAKER) (test 25.5 pg 25.6-32.2 ogcc=954) MEAN CORPUSCULAR HEMOGLOBIN CONC (BEAKER) (test 30.1 GM/DL 32.2-35.5 caeu=257) RED CELL DISTRIBUTION WIDTH (BEAKER) (test 14.6 % 11.7-14.4 czrw=487) PLATELET COUNT (BEAKER) (test cbdq=337) 201 K/CU MM 150-450 MEAN PLATELET VOLUME (BEAKER) (test kvek=073) 11.1 fL 9.4-12.3 NUCLEATED RED BLOOD CELLS (BEAKER) (test 0 /100 WBC 0-0 oger=141) NEUTROPHILS RELATIVE PERCENT (BEAKER) (test 55 % nlfi=674) LYMPHOCYTES RELATIVE PERCENT (BEAKER) (test 36 % ezrx=188) MONOCYTES RELATIVE PERCENT (BEAKER) (test 5 % ivxx=812) EOSINOPHILS RELATIVE PERCENT (BEAKER) (test 3 % jokx=397) BASOPHILS RELATIVE PERCENT (BEAKER) (test 1 % tqyn=065) NEUTROPHILS ABSOLUTE COUNT (BEAKER) (test 4.85 K/ L 1.56-6.13 hlps=549) LYMPHOCYTES ABSOLUTE COUNT (BEAKER) (test 3.18 K/ L 1.18-3.74 dvhc=017) MONOCYTES ABSOLUTE COUNT (BEAKER) (test 0.47 K/ L 0.24-0.36 nfzg=193) EOSINOPHILS ABSOLUTE COUNT (BEAKER) (test 0.25 K/ L 0.04-0.36 phcc=517) BASOPHILS ABSOLUTE COUNT (BEAKER) (test 0.07 K/ L 0.01-0.08 tjem=356) IMMATURE GRANULOCYTES-RELATIVE PERCENT (BEAKER) 0 % 0-1 (test igwj=7002) POCT-GLUCOSE [id number] 22:38:00 Test Item Value Reference Range Comments POC-GLUCOSE METER (BEAKER) 262 mg/dL 70-[address] [facility] [address] (test jsrw=0811) [place] [address] PROTEIN, RANDOM [id number] 22:18:00 Test Item Value Reference Range Comments PROTEIN, URINE (BEAKER) (test gbrt=2327) 641 mg/dL 0-14 CREATININE, RANDOM [id number] 22:07:00 Test Item Value Reference Range Comments CREATININE URINE (BEAKER) (test zxlz=099) 124.9 mg/dL Reference Range: No NormalsURINALYSIS W/ [id number] 22:03:00 Test Item Value Reference Range Comments COLOR (BEAKER) (test aiav=191) Yellow CLARITY (BEAKER) (test cgxh=675) Cloudy SPECIFIC GRAVITY UA (BEAKER) (test qegv=224) 1.015 1.001-1.035 PH UA (BEAKER) (test mjdc=421) 5.5 5.0-8.0 PROTEIN UA (BEAKER) (test lxzv=745) 300 mg/dL Negative GLUCOSE UA (BEAKER) (test efxe=439) 300 mg/dL Negative KETONES UA (BEAKER) (test yuhy=820) Negative Negative BILIRUBIN UA (BEAKER) (test gqkj=330) Negative Negative BLOOD UA (BEAKER) (test oofv=762) Trace Negative NITRITE UA (BEAKER) (test hgrs=638) Negative Negative LEUKOCYTE ESTERASE UA (BEAKER) (test nlij=827) Moderate Negative UROBILINOGEN UA (BEAKER) (test hlki=463) 0.2 mg/dL 0.2-1.0 RBC UA (BEAKER) (test kmkg=715) 11 /HPF WBC UA (BEAKER) (test emlb=622) 36 /HPF MUCUS (BEAKER) (test aels=1368) Few SQUAMOUS EPITHELIAL (BEAKER) (test kcda=198) 12 /HPF HYALINE CASTS (BEAKER) (test itxv=093) 66 /LPF CASTS (BEAKER) (test kzdw=2577) 112 /LPF YEAST (BEAKER) (test qunq=1552) Moderate SOURCE(BEAKER) (test yvan=7980) Urine, Voided [id number] 19:49:00 Test Item Value Reference Range Comments SODIUM (BEAKER) (test wzwy=141) 136 meq/L 136-145 POTASSIUM (BEAKER) (test 5.1 meq/L 3.5-5.1 Specimen slightly hemolyzed ykqe=296) CHLORIDE (BEAKER) (test 104 meq/L 98-107 jaqg=430) CO2 (BEAKER) (test zjne=740) 25 meq/L 22-29 Call if K > 5POCT-GLUCOSE [id number] 11:37:00 Test Item Value Reference Range Comments POC-GLUCOSE METER (BEAKER) 293 mg/dL 70-110 TESTED AT [address] (test lpgo=2376) [place] [address] RAD, CHEST, 1 VIEW, NON [id number] 10:22:00Reason for exam:->SOBShould this be performed at the bedside?->YesFINAL REPORT Chest one view Discussion: There is cardiomegaly and interstitial congestion. A small right-sided effusion is noted. No pneumothorax. IMPRESSIONS: Suspected CHF. Signed: Jeannette Nava Verified Date/Time: 05/13/2017 10:22:34 Reading Location: [facility] Radiology Reading Room POCT-GLUCOSE [id number] 08:34:00 Test Item Value Reference Range Comments POC-GLUCOSE METER (BEAKER) 178 mg/dL 70-110 TESTED AT [address] (test jypv=2614) [place] [address] POCT-GLUCOSE [id number] 06:53:00 Test Item Value Reference Range Comments POC-GLUCOSE METER (BEAKER) 167 mg/dL 70-110 TESTED AT [address] (test tegg=4933) [place] [address] [id number] 04:48:00 Test Item Value Reference Range Comments BLOOD UREA NITROGEN (BEAKER) (test nrod=246) 36 mg/dL 7-21 [id number] 04:48:00 Test Item Value Reference Range Comments SODIUM (BEAKER) (test idsk=640) 139 meq/L 136-145 POTASSIUM (BEAKER) (test zyhf=387) 5.2 meq/L 3.5-5.1 CHLORIDE (BEAKER) (test jabq=834) 109 meq/L 98-107 CO2 (BEAKER) (test cmqs=744) 23 meq/L 22-29 [id number] 04:48:00 Test Item Value Reference Range Comments CREATININE (BEAKER) (test 1.73 mg/dL 0.57-1.25 fvsf=328) EGFR (BEAKER) (test 30 mL/min/1.73 sq m ESTIMATED GFR IS NOT snye=4549) ACCURATE CREATININE CLEARANCE IN PREDICTING GLOMERULAR FILTRATION RATE. ESTIMATED GFR IS NOT APPLICABLE FOR DIALYSIS PATIENTS. CBC (HEMOGRAM ONLY)2017-05-13 04:33:00 Test Item Value Reference Range Comments WHITE BLOOD CELL COUNT (BEAKER) (test widp=310) 10.2 K/ L 3.5-10.5 RED BLOOD CELL COUNT (BEAKER) (test wtpc=305) 4.54 M/ L 3.93-5.22 HEMOGLOBIN (BEAKER) (test lzgv=995) 11.4 GM/DL 11.2-15.7 HEMATOCRIT (BEAKER) (test cerb=812) 37.6 % 34.1-44.9 MEAN CORPUSCULAR VOLUME (BEAKER) (test paei=424) 82.8 fL 79.4-94.8 MEAN CORPUSCULAR HEMOGLOBIN (BEAKER) (test 25.1 pg 25.6-32.2 rwxz=639) MEAN CORPUSCULAR HEMOGLOBIN CONC (BEAKER) (test 30.3 GM/DL 32.2-35.5 ygnk=599) RED CELL DISTRIBUTION WIDTH (BEAKER) (test 14.7 % 11.7-14.4 lwpw=672) PLATELET COUNT (BEAKER) (test snnk=149) 194 K/CU MM 150-450 MEAN PLATELET VOLUME (BEAKER) (test mlex=919) 10.9 fL 9.4-12.3 NUCLEATED RED BLOOD CELLS (BEAKER) (test 0 /100 WBC 0-0 zeev=252) [id number] 23:29:00 Test Item Value Reference Range Comments ACTIVATED CLOTTING TIME 136 sec TESTED AT [address] (BEAKER) (test hrek=718) [facility] [address] [id number] 20:13:00 Test Item Value Reference Range Comments ACTIVATED CLOTTING TIME 175 sec TESTED AT [facility] [address] (BEAKER) (test gvlu=837) [place] [address] [id number] 18:36:00 Test Item Value Reference Range Comments ACTIVATED CLOTTING TIME 202 sec TESTED AT [place] [id number] (BEAKER) (test kbsj=766) [place] [address] [id number] 18:03:00 Test Item Value Reference Range Comments ACTIVATED CLOTTING TIME 208 sec TESTED AT [address] (BEAKER) (test tidq=535) [place] [address] BASIC METABOLIC [id number] 11:57:00 Test Item Value Reference Range Comments SODIUM (BEAKER) (test 139 meq/L 136-145 cbxu=340) POTASSIUM (BEAKER) (test 4.9 meq/L 3.5-5.1 lajz=909) CHLORIDE (BEAKER) (test 107 meq/L 98-107 oboa=687) CO2 (BEAKER) (test 27 meq/L 22-29 ogkm=714) BLOOD UREA NITROGEN 36 mg/dL 7-21 (BEAKER) (test orae=967) CREATININE (BEAKER) (test 1.60 mg/dL 0.57-1.25 jbiq=598) GLUCOSE RANDOM (BEAKER) 187 mg/dL 70-105 (test pcmo=651) CALCIUM (BEAKER) (test 8.6 mg/dL 8.4-10.2 cwib=711) EGFR (BEAKER) (test 33 mL/min/1.73 sq m ESTIMATED GFR IS NOT ceuy=4657) ACCURATE CREATININE CLEARANCE IN PREDICTING GLOMERULAR FILTRATION RATE. ESTIMATED GFR IS NOT APPLICABLE FOR DIALYSIS PATIENTS. PROTHROMBIN [id number] 11:15:00 Test Item Value Reference Range Comments PROTIME (BEAKER) (test srie=663) 14.8 seconds 11.7-14.7 INR (BEAKER) (test twch=942) 1.2 <=5.9 RECOMMENDED COUMADIN/WARFARIN INR THERAPY RANGESSTANDARD DOSE: 2.0 - 3.0 Includes: PROPHYLAXIS forvenous thrombosis, systemic embolization; TREATMENT for venous thrombosis and/or pulmonary embolus.HIGH RISK: Target INR is 2.5-3.5 for patients with mechanical heart valves.Within 24 hours, if on CoumadinCBC W/ PLT COUNT & AUTO [id number] 11:01:00 Test Item Value Reference Range Comments WHITE BLOOD CELL COUNT (BEAKER) (test yoiu=106) 9.1 K/ L 3.5-10.5 RED BLOOD CELL COUNT (BEAKER) (test makj=472) 4.62 M/ L 3.93-5.22 HEMOGLOBIN (BEAKER) (test ibdm=286) 11.7 GM/DL 11.2-15.7 HEMATOCRIT (BEAKER) (test ztou=912) 38.0 % 34.1-44.9 MEAN CORPUSCULAR VOLUME (BEAKER) (test hkky=962) 82.3 fL 79.4-94.8 MEAN CORPUSCULAR HEMOGLOBIN (BEAKER) (test 25.3 pg 25.6-32.2 gtsj=554) MEAN CORPUSCULAR HEMOGLOBIN CONC (BEAKER) (test 30.8 GM/DL 32.2-35.5 jcsa=933) RED CELL DISTRIBUTION WIDTH (BEAKER) (test 14.5 % 11.7-14.4 hwnd=230) PLATELET COUNT (BEAKER) (test uock=124) 205 K/CU MM 150-450 MEAN PLATELET VOLUME (BEAKER) (test dorh=938) 10.6 fL 9.4-12.3 NUCLEATED RED BLOOD CELLS (BEAKER) (test 0 /100 WBC 0-0 dibw=220) NEUTROPHILS RELATIVE PERCENT (BEAKER) (test 59 % vtqx=371) LYMPHOCYTES RELATIVE PERCENT (BEAKER) (test 32 % eyps=711) MONOCYTES RELATIVE PERCENT (BEAKER) (test 5 % hfbq=621) EOSINOPHILS RELATIVE PERCENT (BEAKER) (test 3 % ymgo=082) BASOPHILS RELATIVE PERCENT (BEAKER) (test 1 % eiwp=661) NEUTROPHILS ABSOLUTE COUNT (BEAKER) (test 5.36 K/ L 1.56-6.13 kmmq=911) LYMPHOCYTES ABSOLUTE COUNT (BEAKER) (test 2.86 K/ L 1.18-3.74 cbde=991) MONOCYTES ABSOLUTE COUNT (BEAKER) (test 0.48 K/ L 0.24-0.36 kpoy=693) EOSINOPHILS ABSOLUTE COUNT (BEAKER) (test 0.27 K/ L 0.04-0.36 tmhu=307) BASOPHILS ABSOLUTE COUNT (BEAKER) (test 0.08 K/ L 0.01-0.08 bjip=242) IMMATURE GRANULOCYTES-RELATIVE PERCENT (BEAKER) 0 % 0-1 (test aivf=5806) POCT-GLUCOSE [id number] 12:35:00 Test Item Value Reference Range Comments POC-GLUCOSE METER (BEAKER) 249 mg/dL 70-110 TESTED AT [address] (test frnz=9480) [facility] [address] POCT-GLUCOSE [id number] 09:10:00 Test Item Value Reference Range Comments POC-GLUCOSE METER (BEAKER) 155 mg/dL 70-110 TESTED AT [address] (test pqwa=8250) [place] [id number] BASIC METABOLIC [id number] 05:39:00 Test Item Value Reference Range Comments SODIUM (BEAKER) (test 138 meq/L 136-145 makw=603) POTASSIUM (BEAKER) (test 4.7 meq/L 3.5-5.1 zpay=091) CHLORIDE (BEAKER) (test 107 meq/L 98-107 gjro=785) CO2 (BEAKER) (test 25 meq/L 22-29 fimn=527) BLOOD UREA NITROGEN 36 mg/dL 7-21 (BEAKER) (test zvlt=613) CREATININE (BEAKER) (test 1.75 mg/dL 0.57-1.25 xrvr=975) GLUCOSE RANDOM (BEAKER) 126 mg/dL 70-105 (test qapm=513) CALCIUM (BEAKER) (test 8.2 mg/dL 8.4-10.2 kgts=422) EGFR (BEAKER) (test 29 mL/min/1.73 sq m ESTIMATED GFR IS NOT vpvl=2615) ACCURATE CREATININE CLEARANCE IN PREDICTING GLOMERULAR FILTRATION RATE. ESTIMATED GFR IS NOT APPLICABLE FOR DIALYSIS PATIENTS. [id number] 05:27:00 Test Item Value Reference Range Comments PHOSPHORUS (BEAKER) (test ejjq=812) 5.0 mg/dL 2.3-4.7 [id number] 05:27:00 Test Item Value Reference Range Comments MAGNESIUM (BEAKER) (test dogc=422) 1.6 mg/dL 1.6-2.6 POCT-GLUCOSE [id number] 05:25:00 Test Item Value Reference Range Comments POC-GLUCOSE METER (BEAKER) 144 mg/dL 70-110 TESTED AT [address] (test zdiv=1726) [place] [address] PROTHROMBIN [id number] 04:58:00 Test Item Value Reference Range Comments PROTIME (BEAKER) (test gmmw=035) 14.2 seconds 11.7-14.7 INR (BEAKER) (test bqxi=917) 1.1 <=5.9 RECOMMENDED COUMADIN/WARFARIN INR THERAPY RANGESSTANDARD DOSE: 2.0 - 3.0 Includes: PROPHYLAXIS forvenous thrombosis, systemic embolization; TREATMENT for venous thrombosis and/or pulmonary embolus.HIGH RISK: Target INR is 2.5-3.5 for patients with mechanical heart valves.POCT-GLUCOSE [id number] 23:55:00 Test Item Value Reference Range Comments POC-GLUCOSE METER (BEAKER) 86 mg/dL 70-110 TESTED AT [address] (test opfe=1839) [place] [address] B-TYPE NATRIURETIC FACTOR (BNP)2017-04-22 18:13:00 Test Item Value Reference Range Comments B-TYPE NATRIURETIC PEPTIDE (BEAKER) (test 1203 pg/mL 0-100 eryl=494) POCT-GLUCOSE [id number] 17:36:00 Test Item Value Reference Range Comments POC-GLUCOSE METER (BEAKER) 259 mg/dL 70-110 TESTED AT [address] (test kpbs=7802) [place] [address] HEMOGLOBIN [id number] 14:24:00 Test Item Value Reference Range Comments HEMOGLOBIN A1C (BEAKER) (test cjyg=215) 10.5 % 4.3-6.1 POCT-GLUCOSE [id number] 12:34:00 Test Item Value Reference Range Comments POC-GLUCOSE METER (BEAKER) 207 mg/dL 70-110 TESTED AT [address] (test omoe=2319) [place] [address] [id number] 07:53:00 Test Item Value Reference Range Comments PHOSPHORUS (BEAKER) (test bgoe=453) 3.9 mg/dL 2.3-4.7 [id number] 07:53:00 Test Item Value Reference Range Comments MAGNESIUM (BEAKER) (test umuy=050) 1.6 mg/dL 1.6-2.6 BASIC METABOLIC [id number] 07:53:00 Test Item Value Reference Range Comments SODIUM (BEAKER) (test 139 meq/L 136-145 mbco=692) POTASSIUM (BEAKER) (test 4.5 meq/L 3.5-5.1 ndvy=442) CHLORIDE (BEAKER) (test 108 meq/L 98-107 bdcr=112) CO2 (BEAKER) (test 25 meq/L 22-29 linl=678) BLOOD UREA NITROGEN 29 mg/dL 7-21 (BEAKER) (test myfe=351) CREATININE (BEAKER) (test 1.54 mg/dL 0.57-1.25 hpll=714) GLUCOSE RANDOM (BEAKER) 211 mg/dL 70-105 (test legr=682) CALCIUM (BEAKER) (test 8.5 mg/dL 8.4-10.2 ctgq=628) EGFR (BEAKER) (test 34 mL/min/1.73 sq m ESTIMATED GFR IS NOT jomn=6614) ACCURATE CREATININE CLEARANCE IN PREDICTING GLOMERULAR FILTRATION RATE. ESTIMATED GFR IS NOT APPLICABLE FOR DIALYSIS PATIENTS. TROPONIN [id number] 07:29:00 Test Item Value Reference Range Comments TROPONIN I (BEAKER) (test hchi=897) 0.05 ng/mL 0.00-0.03 Troponin I (TnI) levels [...] acidosis, acute neurological disease, and persistent tachyarrhythmia.PROTHROMBIN [id number] 07:01:00 Test Item Value Reference Range Comments PROTIME (BEAKER) (test goic=867) 13.8 seconds 11.7-14.7 INR (BEAKER) (test ijzd=632) 1.1 <=5.9 RECOMMENDED COUMADIN/WARFARIN INR THERAPY RANGESSTANDARD DOSE: 2.0 - 3.0 Includes: PROPHYLAXIS forvenous thrombosis, systemic embolization; TREATMENT for venous thrombosis and/or pulmonary embolus.HIGH RISK: Target INR is 2.5-3.5 for patients with mechanical heart valves.POCT-GLUCOSE [id number] 06:28:00 Test Item Value Reference Range Comments POC-GLUCOSE METER (BEAKER) 198 mg/dL 70-110 TESTED AT [address] (test kdif=5807) [place] [id number] CREATINE KINASE (CK), TOTAL AND [id number] 00:49:00 Test Item Value Reference Range Comments CREATINE KINASE TOTAL (BEAKER) (test aiba=334) 69 U/L 29-200 CREATINE KINASE-MB (BEAKER) (test yuyo=611) 4.3 ng/mL 0.0-6.6 CREATINE KINASE-MB INDEX (BEAKER) (test uuzt=727) 6.2 % CK-MB Reference Range:<6.7 Normal6.7-10.0 Borderline>10.0 AbnormalTROPONIN [id number] 00:49:00 Test Item Value Reference Range Comments TROPONIN I (BEAKER) (test kjvu=635) 0.05 ng/mL 0.00-0.03 Troponin I (TnI) levels [...] acidosis, acute neurological disease, and persistent tachyarrhythmia.POCT-GLUCOSE [id number] 20:44:00 Test Item Value Reference Range Comments POC-GLUCOSE METER (BEAKER) 269 mg/dL 70-110 TESTED AT [address] (test jjgm=3242) [place] [id number]
--- OUTSIDE RECORDS SUMMARY | 2019-02-17 15:19 | XMS REPORT ---
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 current use of insulin Z79.4 Active Medications Medication Code Code Instructions Start End Status Dosage System Date Date Allopurinol ND 90802656997 100 MG Oral Active TAKE 1 TABLET BY MOUTH TWICE A DAY NIFEdipine ER ND 18240362290 60 MG Oral Active TAKE 1 TABLET BY MOUTH EVERY DAY ProAir HFA ND 85372196381 108 (90 Base) Active INHALE 2 MCG/ACT PUFFS 3 TIMES A DAY NEEDED FOR SHORTNESS OF BREATH Furosemide ND 29621787986 40 MG Active TAKE BY MOUTH 1 TABLET NEEDED FOR SHORTNESS OF BREATH MAY TAKE NEEDED IF WITH INCREASE EDEMA Acetaminophen-C ND 97964830643 300-30 MG Oral Active (Schedule odeine #3 III Drug) TAKE 1 TABLET BY MOUTH EVERY 6 HOURS NEEDED FOR PAIN Carvedilol [facility] 49789549466 12.5 MG Oral Active TAKE 1 TABLET BY MOUTH TWICE A DAY Isosorbide [facility] 71091743235 30 MG Oral Active TAKE 1 Mononitrate ER TABLET BY MOUTH EVERY DAY Atorvastatin [facility] 05509542041 40 MG Oral Active TAKE 1 Calcium TABLET BY MOUTH EVERY DAY Levemir [facility] 31724272827 100 UNIT/ML Active INJECT 10 FlexTouch Subcutaneous UNITS BELOW THE SKIN IN THE MORNING Vitamin D [facility] 23840798958 31862 UNIT Oral Active TAKE ONE (Ergocalciferol CAPSULE BY ) MOUTH ONE TIME PER WEEK BuPROPion HCl [facility] 95075832178 75 MG Oral Active TAKE 1 TABLET BY MOUTH EVERY DAY Clopidogrel [facility] 81042980143 75 MG Oral Active TAKE 1 Bisulfate TABLET BY MOUTH EVERY DAY Gabapentin [facility] 30290354885 100 MG Oral Active TAKE 1 CAPSULE BY MOUTH THREE TIMES A DAY HydrALAZINE HCl [facility] 01922418140 100 MG Active TAKE 1 TABLET BY MOUTH THREE TIMES A DAY Advair Diskus [facility] 80291590686 250-50 MCG/DOSE Active INHALE 1 DOSE BY MOUTH TWICE DAILY. RINSE MOUTH AFTER USE Trazodone HCl [facility] 66621879872 50 MG Oral Active TAKE 1 TABLET BY MOUTH EVERYDAY AT BEDTIME Results No Known Results Summary Purpose eClinicalWorks Submission
[2019-02-17] MEDS ORDERED: ACETAMINOPHEN 325 MG TABLET ONE ×2 (15:35→15:59)
[2019-02-17] MEDS ORDERED: FENTANYL CITR 100 MCG/2 ML ONE ×2 (15:44→17:18)
[2019-02-17] MEDS ORDERED: ONDANSETRON 4 MG/2 ML VIAL ONE (15:44)
[2019-02-17 15:53] LABS: Absolute Lymphocytes (CBC) 1.7 K/uL (0.7-4.9); Basophils % 0.5 % (0-1.3); Hematocrit 32.9 % (36.0-45.0); Lymphocytes % 12.2 % (15.3-44.8); MPV 8.1 fL (7.6-11.3); RBC Red Blood Cell Count 4.09 M/uL (3.86-4.86)
[2019-02-17 15:56] LABS: Protime INR 1.32
[2019-02-17 16:09] LABS: Albumin 2.6 g/dL (3.4-5.0); Bilirubin Direct 0.3 mg/dL (0-0.2); Bilirubin Total 0.5 mg/dL (0.2-1.0); CKMB Creatine Kinase MB 1.4 ng/mL (0.3-3.6); Potassium 3.9 mmol/L (3.5-5.1); Protein, Total 7.2 g/dL (6.4-8.2); Troponin (Emerg Dept Use Only) 0.09 ng/mL (0.0-0.045)
[2019-02-17 16:15] LABS: Urine Blood NEGATIVE (NEG); Urine Glucose NEGATIVE (NEG); Urine Protein 3+ (NEG)
[2019-02-17 16:17] LABS: Blood Morphology Comment NOT SEEN (NOT SEEN); Platelet Estimate ADEQ; Urine White Blood Cell Casts OK
[2019-02-17 16:21] LABS: Urine Amorphous Sediment 3+ /HPF (NONE SEEN); Urine Bacteria <20 /HPF (<20); Urine Culture Reflex Order NOT NEEDED; Urine Mucus 2+ /HPF (NONE SEEN); Urine RBC <5 /HPF (NONE SEEN)
[2019-02-17] MEDS ORDERED: CEFEPIME 1 GM/100 ML BAG IV ONE (16:22)
[2019-02-17] MEDS ORDERED: Levofloxacin500mg IV 500 MG/100 ML BAG IV ONE (16:22)
[2019-02-17 16:56] LABS: Arterial Blood Carboxyhemoglob 1.8 % (0-1.5); Blood Gas Oxyhemoglobin 86.9 % (94-97); Blood O2 Saturation 89.1 % (92-98.5)
--- NOTE | 2019-02-17 16:56 | RAD REPORT ---
EXAM DESCRIPTION: CT - Abdomen Pelvis Wo Contrast - 02/17/2019 4:43 pm CLINICAL HISTORY: Abdominal pain and diarrhea COMPARISON: 2018 TECHNIQUE: Computed axial tomography of the abdomen and pelvis was obtained. IV and oral contrast we re not requested. All CT scans are performed using dose optimization technique as appropriate and may include automated exposure control or mA/KV adjustment according to patient size. FINDINGS: The evaluation of solid organs, vessels and bowel is limited secondary to the lack of con trast administration. A moderate right pleural effusion. Diffuse edema throughout the subcutaneous tissues. A moderate amou nt of ascites is present within the abdomen and pelvis. The liver, spleen, pancreas, adrenals and kidneys appear grossly normal. . There is no evidence of diverticulitis. The wall of left colon is mildly thickened. A Greene catheter is present within the bladder Vascular calcifications are present IMPRESSION: Mild left colitis Anasarca
--- NOTE | 2019-02-17 16:57 | RAD REPORT ---
EXAM DESCRIPTION: Butch Single View02/17/2019 4:14 pm CLINICAL HISTORY: Shortness of breath COMPARISON: none FINDINGS: Moderate right pleural effusion with right basilar atelectasis Left lung appears clear The heart is mildly to moderately enlarged. Postsurgical changes involve chest
[2019-02-17] MEDS ORDERED: FUROSEMIDE 100 MG/10 ML VIAL IV ONE (17:18)
--- NOTE | 2019-02-17 17:40 | ER ---
Nurse's Notes [facility] Name: Christy Priest Age: 63 yrs Sex: Female : 1955 Arrival Date: 02/17/2019 Time: 15:09 Bed 19 Private MD: Diagnosis: Hypoxemia;Anasarca;Nephrotic syndrome;Pleural effusion, not elsewhere classified;Colitis;Other sepsis;Ascites Presentation: 02/17 15:12 Presenting complaint: EMS states: Diarrhea, fever, pain all over, bilateral lower hb extremity swelling x 2 weeks. Transition of care: patient was not received from another setting of care. Onset of symptoms was February 17, 2019. Risk Assessment: Do you want to hurt yourself or someone else? Patient reports no desire to harm self or others. Care prior to arrival: None. 15:12 Method Of Arrival: EMS: [facility] hb 15:12 Acuity: DENNY 2 hb 15:15 Initial Sepsis Screen: Does the patient meet any 2 criteria? No. Patient's initial hb sepsis screen is negative. Does the patient have a suspected source of infection? No. Patient's initial sepsis screen is negative. Triage Assessment: 15:15 General: Appears ill, Behavior is cooperative, flat. Pain: Pain currently is 8 out of hb 10 on a pain scale. EENT: No signs and/or symptoms were reported regarding the EENT system. Neuro: Level of Consciousness is obeys commands, lethargic, Oriented to person, place, time, situation. Cardiovascular: Heart tones S1 S2 present Capillary refill < 3 seconds. Respiratory: Reports shortness of breath on exertion Airway is patent Respiratory effort is even, unlabored, Respiratory pattern is regular, symmetrical, Breath sounds are clear bilaterally. GI: Abdomen is distended, weeping. : No signs and/or symptoms were reported regarding the genitourinary system. Derm: Skin is jaundiced, bilateral legs and abdomen 3+ weeping edema. Musculoskeletal: Reports pain all over. Historical: - Allergies: 15:12 Augmentin; hb 15:12 basil; hb 15:12 Morphine; hb 15:12 Nitroglycerin; hb 15:12 Tramadol HCl; hb 15:12 Trazodone; hb 15:12 Vancomycin; hb - PMHx: 15:12 COPD; ESRD; High Cholesterol; Diabetes - IDDM; CHF; triple bypass; uterine cancer; hb Hypertension; - PSHx: 15:12 Cholecystectomy; Hysterectomy; triple bypass; hb - Immunization history:: Adult Immunizations up to date. - Social history:: Smoking status: Patient/guardian denies using tobacco. - Ebola Screening: : No symptoms or risks identified at this time. Screenin:15 Abuse screen: Denies threats or abuse. Denies injuries from another. Nutritional hb screening: No deficits noted. Tuberculosis screening: No symptoms or risk factors identified. Fall Risk Total Merlos Fall Scale indicates High Risk Score (45 or more points). Fall prevention measures have been instituted. Side Rails Up X 2 Frequent Obs/Assessments Occuring As available patient and family educated on Fall Prevention Program and Strategies. Assessment: 15:15 General: see triage assessment . hb 15:29 Reassessment: DEBBIE Persaud at bedside. hb 16:00 Reassessment: No changes from previously documented assessment. Patient and/or family hb updated on plan of care and expected duration. Pain level reassessed. 16:34 Reassessment: Pt to CT. hb 16:53 Reassessment: Pt returned from CT, RT Mei at bedside for ABG. hb 16:58 Reassessment: Pt 89% on RA, placed on 3LNC by RT Mei. hb 17:30 Reassessment: SpO2 97% on 3LNC. Admission ordered, awaiting room assignment at this hb time. Pt resting with eyes closed. 18:18 Reassessment: Patient appears in no apparent distress at this time. No changes from previously documented assessment. Patient and/or family updated on plan of care and expected duration. Pain level reassessed. 19:30 Reassessment: Patient appears in no apparent distress at this time. Patient and/or family updated on plan of care and expected duration. Pain level reassessed. Patient is alert, oriented x 3, equal unlabored respirations, skin warm/dry/pink. 20:30 Reassessment: Patient appears in no apparent distress at this time. No changes from previously documented assessment. Patient and/or family updated on plan of care and expected duration. Pain level reassessed. Patient is alert, oriented x 3, equal unlabored respirations, skin warm/dry/pink. Vital Signs: 15:14 BP 196 / 88; Pulse 87; Resp 20; Temp 100.5(O); Pulse Ox 92% on R/A; Pain 10/10; hb 16:44 BP 181 / 88; Pulse 86; Resp 20; Pulse Ox 93% on R/A; Pain 6/10; hb 16:50 Pulse Ox 89% on R/A; hb 17:00 BP 155 / 87; Pulse 79; Resp 18; Temp 99.1; Pulse Ox 97% on 3 lpm NC; hb 18:15 BP 168 / 67; Pulse 78; Resp 15; Pulse Ox 97% on 3 lpm NC; Pain 3/10; hb 19:30 BP 134 / 60; Pulse 77; Resp 18; Pulse Ox 99% ; wh 20:30 BP 122 / 77; Pulse 74; Resp 18; Pulse Ox 100% ; ED Course: 15:09 Patient arrived in ED. hb 15:14 Triage completed. hb 15:15 Arm band placed on. hb 15:27 Karma Gooden, RN is Primary Nurse. hb 15:27 Inserted saline lock: 18 gauge in right antecubital area, using aseptic technique. dh3 Blood collected. 15:27 First set of blood cultures drawn by me. dh3 15:29 Hung Draper PA is PHCP. jr8 15:29 Anmnarie Petersen MD is Attending Physician. jr8 15:30 Patient has correct armband on for positive identification. Placed in gown. Bed in low hb position. Call light in reach. Side rails up X2. 15:43 Initial lab(s) drawn, by me, sent to lab. dh3 15:45 Second set of blood cultures drawn. dh3 15:50 Greene cath inserted, using sterile technique, 16 Fr., by me, balloon inflated, to hb gravity drainage, urine specimen collected. returned clear yellow urine. Patient tolerated well. 16:14 Chest Single View XRAY In Process Unspecified. EDMS 16:14 EKG done, by medical administrative technician. reviewed by Hung LEWIS. 3 16:44 CT Abd/Pelvis - Without Contrast In Process Unspecified. EDMS 17:37 Scout Cadena MD is Hospitalizing Provider. jr8 20:30 No provider procedures requiring assistance completed. Patient admitted, IV remains in place. Administered Medications: 15:55 Drug: Tylenol 650 mg Route: PO; hb 16:45 Follow up: Response: No adverse reaction; Temperature is decreased hb 15:55 Drug: fentaNYL (PF) 25 mcg Route: IVP; Site: right antecubital; hb 16:57 Follow up: Response: No adverse reaction hb 15:55 Drug: Zofran 4 mg Route: IVP; Site: right antecubital; hb 16:57 Follow up: Response: No adverse reaction hb 16:56 Drug: Cefepime 1 grams Route: IVPB; Rate: 200 ml/hr; Infused Over: 30 mins; Site: right hb antecubital; 18:23 Follow up: Response: No adverse reaction; IV Status: Completed infusion; IV Intake: hb 1000ml 16:56 Drug: LevaQUIN 500 mg Volume: 100 ml; Route: IVPB; Infused Over: 60 mins; Site: right hb antecubital; 17:45 Follow up: Response: No adverse reaction; IV Status: Completed infusion; IV Intake: hb 100ml 17:22 Drug: Lasix 80 mg Route: IVP; Site: right antecubital; hb 18:20 Follow up: Response: No adverse reaction hb 17:22 Drug: fentaNYL (PF) 50 mcg Route: IVP; Site: right antecubital; hb 18:20 Follow up: Response: No adverse reaction hb Intake: 17:45 IV: 100ml; Total: 100ml. hb 18:23 IV: 1000ml; Total: 1100ml. hb Outcome: 17:39 Decision to Hospitalize by Provider. anil 20:30 Admitted to Med/surg accompanied by tech, via stretcher, room 211, with chart, Report wh called to Delicia Rueda RN 20:30 Condition: stable 20:30 Instructed on the need for admit. 20:33 Patient left the ED. jocelyne Signatures: Dispatcher [employer] EDMS Hung Draper PA PA jr8 Karma Gooden RN RN Huong Martinez3 Nicholas Bowers Shakira sm3 Corrections: (The following items were deleted from the chart) 16:42 15:15 Derm: bilateral legs and abdomen 3+ weeping edema hb hb 16:43 15:34 Reassessment: Pt to CT hb hb
--- NOTE | 2019-02-17 17:40 | EDPHYS ---
Physician Documentation [facility] Name: Christy Priest Age: 63 yrs Sex: Female : 1955 Arrival Date: 02/17/2019 Time: 15:09 Bed 19 Private MD: ED Physician Annmarie Petersen HPI: 02/17 16:58 This 63 yrs old Female presents to ER via EMS with complaints of Shortness of jr8 breath. Diarrhea. 16:58 The patient has shortness of breath at rest. Onset: The symptoms/episode began/occurred jr8 gradually, 2 week(s) ago, and became worse and became persistent. Duration: The symptoms are continuous. The patient's shortness of breath is aggravated by light activity, is alleviated by nothing. Associated signs and symptoms: Pertinent positives: increased swelling and diarrhea. Severity of symptoms: At their worst the symptoms were moderate in the emergency department the symptoms are unchanged. The patient has not experienced similar symptoms in the past. The patient has not recently seen a physician. Stated that she normally has swelling secondary to liver disease and ESRD but is far worse now. Stated that she is very short of breath and also having diarrhea . Historical: - Allergies: 15:12 Augmentin; hb 15:12 basil; hb 15:12 Morphine; hb 15:12 Nitroglycerin; hb 15:12 Tramadol HCl; hb 15:12 Trazodone; hb 15:12 Vancomycin; hb - PMHx: 15:12 COPD; ESRD; High Cholesterol; Diabetes - IDDM; CHF; triple bypass; uterine cancer; hb Hypertension; - PSHx: 15:12 Cholecystectomy; Hysterectomy; triple bypass; hb - Immunization history:: Adult Immunizations up to date. - Social history:: Smoking status: Patient/guardian denies using tobacco. - Ebola Screening: : No symptoms or risks identified at this time. ROS: 17:00 Constitutional: Positive for fever, malaise. jr8 17:00 Cardiovascular: Positive for edema, orthopnea. 17:00 Respiratory: Positive for dyspnea on exertion, shortness of breath. 17:00 Abdomen/GI: Positive for diarrhea, Negative for abdominal pain, nausea and vomiting, abdominal cramps. 17:00 All other systems are negative. Exam: 17:25 Eyes: Pupils equal round and reactive to light, extra-ocular motions intact. Lids and jr8 lashes normal. Conjunctiva and sclera are non-icteric and not injected. Cornea within normal limits. Periorbital areas with edema. ENT: Nares patent. No nasal discharge, no septal abnormalities noted. Tympanic membranes are normal and external auditory canals are clear. Oropharynx with no redness, swelling, or masses, exudates, or evidence of obstruction, uvula midline. Mucous membranes moist. Neck: Trachea midline, no thyromegaly or masses palpated, and no cervical lymphadenopathy. Supple, full range of motion without nuchal rigidity, or vertebral point tenderness. No Meningismus. Cardiovascular: Regular rate and rhythm with a normal S1 and S2. No gallops, murmurs, or rubs. Normal PMI, no JVD. No pulse deficits. 3+ pitting edema from feet to the abdomen. Diffuse anasarca present 17:25 Back: No spinal tenderness. No costovertebral tenderness. Full range of motion. Skin: Warm, dry with normal turgor. Normal color with no rashes, no lesions, and no evidence of cellulitis. MS/ Extremity: Pulses equal, no cyanosis. Neurovascular intact. Full, normal range of motion. Neuro: Awake and alert, GCS 15, oriented to person, place, time, and situation. Cranial nerves II-XII grossly intact. Motor strength 5/5 in all extremities. Sensory grossly intact. Cerebellar exam normal. Normal gait. 17:25 Respiratory: mild respiratory distress is noted, Respirations: tachypnea, Breath sounds: decreased breath sounds, that are moderate, are heard in the right posterior middle lobe and right posterior lower lobe. 17:25 Abdomen/GI: Inspection: distension, that is moderate, Bowel sounds: active, all quadrants, Palpation: soft, in all quadrants, mild abdominal tenderness, in the right lower quadrant and left lower quadrant, mass, is not appreciated, rebound tenderness, is not appreciated, voluntary guarding, is not appreciated, involuntary guarding, is not appreciated, no appreciated organomegaly, Liver: tenderness, is not appreciated. Vital Signs: 15:14 BP 196 / 88; Pulse 87; Resp 20; Temp 100.5(O); Pulse Ox 92% on R/A; Pain 10/10; hb 16:44 BP 181 / 88; Pulse 86; Resp 20; Pulse Ox 93% on R/A; Pain 6/10; hb 16:50 Pulse Ox 89% on R/A; hb 17:00 BP 155 / 87; Pulse 79; Resp 18; Temp 99.1; Pulse Ox 97% on 3 lpm NC; hb 18:15 BP 168 / 67; Pulse 78; Resp 15; Pulse Ox 97% on 3 lpm NC; Pain 3/10; hb 19:30 BP 134 / 60; Pulse 77; Resp 18; Pulse Ox 99% ; wh 20:30 BP 122 / 77; Pulse 74; Resp 18; Pulse Ox 100% ; wh MDM: 15:32 Patient medically screened. [facility] 17:13 Data reviewed: vital signs, nurses notes, lab test result(s), EKG, radiologic studies, jr8 CT scan, plain films. Data interpreted: Pulse oximetry: on room air is 90 %. Interpretation: borderline. Counseling: I had a detailed discussion with the patient and/or guardian regarding: the historical points, exam findings, and any diagnostic results supporting the discharge/admit diagnosis, lab results, radiology results, the need for further work-up and treatment in the hospital. 17:25 ED course: Dr. Dickey consulted and will see patient. To start patient on lasix 80 mg jr[address] IV BID[address] iLz called and accepted patient . 02/17 15:30 Order name: Basic Metabolic Panel [facility] 02/17 15:30 Order name: Blood Culture Adult (2) [facility] 02/17 15:30 Order name: CBC with Diff; Complete Time: 16:20 [facility] 02/17 15:30 Order name: Ckmb; Complete Time: 16:20 [facility] 02/17 15:30 Order name: CPK; Complete Time: 16:20 [facility] 02/17 15:30 Order name: Lactate; Complete Time: 16:20 [facility] 02/17 15:30 Order name: LFT's; Complete Time: 16:20 [facility] 02/17 15:30 Order name: Lipase; Complete Time: 16:20 [facility] 02/17 15:30 Order name: Procalcitonin; Complete Time: 16:24 [facility] 02/17 15:30 Order name: Protime (+inr); Complete Time: 16:20 [facility] 02/17 15:30 Order name: Ptt, Activated; Complete Time: 16:20 [facility] 02/17 15:30 Order name: Troponin (emerg Dept Use Only); Complete Time: 16:20 8 02/17 15:30 Order name: Urine Microscopic Only; Complete Time: 16:24 8 02/17 15:30 Order name: AMMONIA; Complete Time: 16:20 [facility] 02/17 15:31 Order name: Basic Metabolic Panel; Complete Time: 16:20 EDMS 02/17 15:31 Order name: Blood Culture EDMS 02/17 15:45 Order name: ABG; Complete Time: 17:24 [facility] 02/17 15:59 Order name: Urine Dipstick--Ancillary (enter results); Complete Time: 16:20 bd 02/17 16:18 Order name: CBC Smear Scan; Complete Time: 16:20 EDMS 02/17 18:44 Order name: Urinalysis EDMS 02/17 18:44 Order name: CBC with Automated Diff EDMS 02/17 18:44 Order name: CBC with Automated Diff EDMS 02/17 18:44 Order name: Comprehensive Metabolic Panel EDMS 02/17 18:44 Order name: Comprehensive Metabolic Panel EDMS 02/17 18:44 Order name: Lipid Profile EDMS 02/17 18:44 Order name: Lipid Profile EDMS 02/17 18:44 Order name: Magnesium EDMS 02/17 18:44 Order name: Magnesium EDMS 02/17 18:44 Order name: Phosphorus EDMS 02/17 18:44 Order name: Phosphorus EDMS 02/17 15:30 Order name: Cath; Complete Time: 16:38 [facility] 02/17 15:30 Order name: Chest Single View XRAY; Complete Time: 17:01 [facility] 02/17 15:30 Order name: Accucheck; Complete Time: 16:38 [facility] 02/17 15:30 Order name: Cardiac monitoring; Complete Time: 16:38 [facility] 02/17 15:30 Order name: EKG - Nurse/Tech; Complete Time: 16:37 [facility] 02/17 15:30 Order name: IV Saline Lock - Large Bore; Complete Time: 15:45 [facility] 02/17 15:30 Order name: Labs collected and sent; Complete Time: 15:45 [facility] 02/17 15:30 Order name: O2 Per Protocol; Complete Time: 16:15 [facility] 02/17 15:30 Order name: O2 Sat Monitoring; Complete Time: 16:15 [facility] 02/17 15:30 Order name: Urine Dipstick-Ancillary (obtain specimen); Complete Time: 16:16 [facility] 02/17 16:21 Order name: CT Abd/Pelvis - Without Contrast; Complete Time: 17:01 [facility] 02/17 16:30 Order name: EKG Electrocardiogram; Complete Time: 16:33 [facility] 02/17 18:44 Order name: CONS [facility] 02/17 18:44 Order name: CONS Physician Consult [facility] 02/17 18:44 Order name: Physical Therapy Consult [facility] 02/17 18:44 Order name: Consistent Carb (ADA) [address] Mike EDMI 02/17 18:44 Order name: Troponin I [facility] 02/17 18:44 Order name: Troponin I [facility] 02/17 18:44 Order name: Troponin I [facility] 02/17 18:44 Order name: Troponin I [facility] 02/17 18:52 Order name: Case Management Consult [facility]MI Administered Medications: 15:55 Drug: Tylenol 650 mg Route: PO; hb 16:45 Follow up: Response: No adverse reaction; Temperature is decreased hb 15:55 Drug: fentaNYL (PF) 25 mcg Route: IVP; Site: right antecubital; hb 16:57 Follow up: Response: No adverse reaction hb 15:55 Drug: Zofran 4 mg Route: IVP; Site: right antecubital; hb 16:57 Follow up: Response: No adverse reaction hb 16:56 Drug: Cefepime 1 grams Route: IVPB; Rate: 200 ml/hr; Infused Over: 30 mins; Site: right hb antecubital; 18:23 Follow up: Response: No adverse reaction; IV Status: Completed infusion; IV Intake: hb 1000ml 16:56 Drug: LevaQUIN 500 mg Volume: 100 ml; Route: IVPB; Infused Over: 60 mins; Site: right hb antecubital; 17:45 Follow up: Response: No adverse reaction; IV Status: Completed infusion; IV Intake: hb 100ml 17:22 Drug: Lasix 80 mg Route: IVP; Site: right antecubital; hb 18:20 Follow up: Response: No adverse reaction hb 17:22 Drug: fentaNYL (PF) 50 mcg Route: IVP; Site: right antecubital; hb 18:20 Follow up: Response: No adverse reaction hb Disposition: 02/17/19 17:39 Hospitalization ordered by Scout Cadena for Inpatient Admission. Preliminary diagnosis are Hypoxemia, Anasarca, Nephrotic syndrome, Pleural effusion, not elsewhere classified, Colitis, Other sepsis, Ascites. - Bed requested for Telemetry/MedSurg (Inpatient). - Status is Inpatient Admission. - Condition is Fair. - Problem is new. - Symptoms have improved. UTI on Admission? No Signatures: Dispatcher [employer] EDMS Hung Draper PA PA jr8 Kaci Glass RN RN Karma Gooden RN RN Nicholas Bowers Corrections: (The following items were deleted from the chart) 19:40 17:39 Hospitalization Ordered by Scout Cadena MD for Inpatient Admission. Preliminary diagnosis is Hypoxemia; Anasarca; Nephrotic syndrome; Pleural effusion, not elsewhere classified; Colitis; Other sepsis; Ascites. Bed requested for Telemetry/MedSurg (Inpatient). Status is Inpatient Admission. Condition is Fair. Problem is new. Symptoms have improved. UTI on Admission? No. jr8 20:33 19:40 02/17/2019 17:39 Hospitalization Ordered by Scout Cadena MD for Inpatient Admission. Preliminary diagnosis is Hypoxemia; Anasarca; Nephrotic syndrome; Pleural effusion, not elsewhere classified; Colitis; Other sepsis; Ascites. Bed requested for Telemetry/MedSurg (Inpatient). Status is Inpatient Admission. Condition is Fair. Problem is new. Symptoms have improved. UTI on Admission? No. cg
[2019-02-17] MEDS ORDERED: ACETAMINOPHEN 500 MG TAB PO PRN (18:29)
--- NOTE | 2019-02-17 18:34 | EKG ---
Test Date: 2019-02-17 Test Time: 16:05:23 Auto Appraiser: CYNTHIA MEASUREMENT RESULTS: Intervals: Rate: 86 KS: 188 QRSD: 108 QT: 372 QTc: 445 [place]: P: 80 KS: 188 QRS: 125 T: 76 INTERPRETIVE STATEMENTS: Normal sinus rhythm Incomplete right bundle branch block Possible Right ventricular hypertrophy Septal infarct, age undetermined Abnormal ECG Compared to ECG 01/27/2019 20:54:21 Incomplete right bundle-branch block now present Right-axis deviation no longer present Myocardial infarct finding still present Electronically Signed On 02-17-19 18:32:52 [employer] LINE by Taj Raymond
[2019-02-17] MEDS: ALBUTEROL 2.5 MG/3 ML NEB SOL NEB SCH (20:00)
[2019-02-17] MEDS: IPRATROPIUM BROM 0.5MG/2.5ML NEB SCH (20:00)
[2019-02-17] MEDS: INSULIN -REGULAR HUMAN 50 UNIT/0.5 ML ML SQ SCH (20:54)
[2019-02-17] MEDS ORDERED: LINEZOLID 600 MG IVPB 600 MG/300 ML BAG IV SCH (21:00)
[2019-02-17] MEDS: HEPARIN 5000 UNIT/ML 1 ML VIAL SQ SCH (23:06)
[2019-02-17] MEDS: FENTANYL CITR 100 MCG/2 ML IV PRN (23:08)
[2019-02-18] MEDS: IPRATROPIUM BROM 0.5MG/2.5ML NEB SCH ×4 (02:00→20:10)
[2019-02-18] MEDS: ALBUTEROL 2.5 MG/3 ML NEB SOL NEB SCH ×4 (02:00→20:10)
[2019-02-18] MEDS: FENTANYL CITR 100 MCG/2 ML IV PRN ×3 (04:53→18:44)
[2019-02-18 05:59] LABS: Basophils % 0.4 % (0-1.3); Hematocrit 31.4 % (36.0-45.0); Lymphocytes % 19.9 % (15.3-44.8); RBC Red Blood Cell Count 3.87 M/uL (3.86-4.86)
[2019-02-18 06:16] LABS: Bilirubin Total 0.4 mg/dL (0.2-1.0); Magnesium 1.8 mg/dL (1.8-2.4); Phosphorus 3.6 mg/dL (2.5-4.9); Potassium 4.6 mmol/L (3.5-5.1); Protein, Total 5.8 g/dL (6.4-8.2)
--- NOTE | 2019-02-18 06:20 | HP ---
Date of Admission: 02/17/2019 Chief Complaint: Shortness of breath and weakness. History Of Present Illness: This patient is a 63-year-old lady, who presented for shortness of breat h and generalized weakness. She has a history of coronary artery disease, status post CABG; PVD; CHF ; COPD; chronic kidney disease, stage 4; type 2 diabetes; hypertension; hyperlipidemia; and morbid ob esity. This patient was admitted to [facility] on 01/27 for chest pain. She w as noted to have hypertensive urgency. She was treated with diuresis and discharged to home. Danis ortiz continues to experience shortness of breath, which is worsening. She also experienced generalized weakness. She reported diarrhea for last 2 or 3 weeks. No abdominal pain, not much nausea or vomiti ng. This was associated with generalized body ache including back, abdomen, and leg. She may have s ome fever. She complained headache and she felt at multiple times in home. She noticed lower extrem ity edema worsening and edema spread up to her thigh and lower abdomen. I am not quite sure if she h as been compliant with home medications. Patient also noticed lower extremity redness and the skin l esion. She can walk with walker, but her activities are limited by weakness. This patient presented to emergency room for worsening symptoms, especially shortness of breath and weakness. In the ED, h er WBC 13.9, hemoglobin 10.5, creatinine 2.35 while her baseline is 1.9 to 2.2. Chest x-ray demonstr ated a right pleural effusion and abdominal CT demonstrated mild left colitis. She was given IV cefe pime and Levaquin in the ED for colitis. She was admitted for further management. Past Medical History: 1.Coronary artery disease, status post COPD. 2.CAD. 3.COPD. 4.Stage 4 CKD. 5.Hypertension. 6.Type 2 diabetes. 7.CHF. 8.Obesity. Review of Systems: No vision or hearing change. No runny nose or sore throat. No labored breathing. No chest pain. N o dysuria or hematuria. No numbness or weakness. For all other system review, please see HPI. Social History: Patient remained noncompliant with her home medication. [facility]. Physical Examination: General: Patient is awake and alert, oriented x3. HEENT: PERRLA. EOMI. Neck: Supple. Chest: Decreased breath sounds. No labored breathing. Heart: S1, S2. No murmurs. Regular rhythm. Abdomen: Soft, nontender, obese. Edema in the lower abdomen. Extremities: Anasarca of the lower extremities. She also has redness in both legs. There are some skin lesions. There is some discharge from the lesions. Neurologic: Patient is awake and alert. Nonfocal. Strength 4/5. Psychiatric: Patient appears to be anxious. No depression. Laboratory Data: WBC is 13.9, hemoglobin 10.5, platelets 232. Sodium 136, potassium 3.9, creatinine 2.35, troponin 0.09. Chest x-ray, moderate right pleural effusion, left lung appeared clear. Abdomen CT, mild left coliti s and anasarca. Assessment And Plan: 1.Acute on chronic respiratory failure. The etiology is likely due to congestive heart failure exac erbation. X-rays showed the right pleural effusion. We started Lasix, DuoNeb nebulization, NSAIDs, oxygen. 2.Congestive heart failure exacerbation. Patient experienced anasarca of the lower extremities up t o lower abdomen, likely this is secondary to congestive heart failure. Start her Lasix. We will res ume home medications. 3.Chronic kidney disease, stage 4. Creatinine level 2.35, which is mildly elevated. We will closel y monitor in the setting of diuresis. Nephrology was consulted. 4.Diarrhea. This is likely due to colitis, demonstrated by abdominal CT. We started IV cefepime an d Levaquin in the ED. 5.Lower extremity cellulitis. Her legs appear to be red. There was some drain from the skin lesion s. We started Zyvox empirically. Wound culture and wound care were ordered. 6.Hypertension. We will continue home medications. 7.Type 2 diabetes, on diabetic diet, sliding scale. We will resume home diabetic agent. 8.Chronic obstructive pulmonary disease, treated as mentioned above with nebulization. This patient has multiple comorbidities. Her prognosis is guarded. Further plan will be based on her conditions . QT/MODL Voice ID: [id number]
[2019-02-18] MEDS: INSULIN -REGULAR HUMAN 50 UNIT/0.5 ML ML SQ SCH ×4 (07:30→21:00)
[2019-02-18] MEDS ORDERED: MAGNESIUM SULFATE 1 gm IVPB 1 GM/100 ML BAG IV ONE (08:00)
[2019-02-18] MEDS: Levofloxacin 250mg IV 250 MG/50 ML BAG IV SCH (08:33)
[2019-02-18] MEDS: HEPARIN 5000 UNIT/ML 1 ML VIAL SQ SCH ×2 (08:34→21:42)
[2019-02-18] MEDS ORDERED: FLUTICASONE PROPION IH PRN (08:37)
[2019-02-18] MEDS ORDERED: SALMETEROL IH PRN (08:37)
[2019-02-18] MEDS ORDERED: CEFEPIME/SWI 1gm 10 ML IVP SCH (09:00)
[2019-02-18] MEDS ORDERED: carvediloL 12.5 MG TAB PO SCH (09:00)
[2019-02-18] MEDS ORDERED: FUROSEMIDE 40 MG/4 ML VIAL IV SCH (09:00)
[2019-02-18] MEDS ORDERED: CEFEPIME 1 GM/VIAL IV SCH (09:00)
[2019-02-18] MEDS ORDERED: CLINDAMYCIN 600MG/D5W 600 MG/50 ML BAG IV SCH ×2 (09:00→10:00)
[2019-02-18] MEDS: NICOTINE 14 MG/PAT TD SCH (09:47)
[2019-02-18] MEDS: NIFEDIPINE XL 60 MG TABLET PO SCH (09:48)
[2019-02-18] MEDS: GABAPENTIN 100 MG CAP PO SCH ×3 (09:48→21:44)
[2019-02-18] MEDS: CLOPIDOGREL 75 MG TABLET PO SCH (09:48)
[2019-02-18] MEDS: ISOSORBIDE MONO SR 30 MG TAB PO SCH (09:57)
[2019-02-18] MEDS: INSULIN GLARGINE 100 UNITS/ML SQ SCH ×2 (09:58→21:44)
[2019-02-18] MEDS: CLINDAMYCIN INJ 600 MG in NA CHLORIDE 0.9% 50 ML IV SCH ×2 (10:29→17:09)
[2019-02-18] MEDS: ONDANSETRON 4 MG/2 ML VIAL IV PRN (11:49)
--- NOTE | 2019-02-18 14:12 | ECHO ---
HEIGHT: 5 ft 7 in WEIGHT: 221 lb 0 oz DATE OF STUDY: 02/18/[address]: Taj Raymond MD 2-DIMENSIONAL: YES M.MODE: YES DOPPLER: YES COLOR FLOW: YES TDS: NO PORTABLE: NO DEFINITY: NO BUBBLE STUDY: NO DIAGNOSIS: CONGESTIVE HEART FAILURE CARDIAC HISTORY: CATHERIZATION: YES SURGERY: YES PROSTHETIC VALVE: NO PACEMAKER: NO MEASUREMENTS (cm) DIASTOLIC (NORMALS) SYSTOLIC (NORMALS) IVSd 1.3 (0.6-1.2) LA Diam 4.6 (1.9-4.0) LVEF 66% LVIDd 5.1 (3.5-5.7) LVIDs 3.2 (2.0-3.5) %FS 36% LVPWd 1.5 (0.6-1.2) Ao Diam 4.2 (2.0-3.7) 2 DIMENSIONAL ASSESSMENT: RIGHT ATRIUM: NORMAL LEFT ATRIUM: DILATED RIGHT VENTRICLE: NORMAL LEFT VENTRICLE: LEFT VENTRICULAR HYPERTROPHY TRICUSPID VALVE: NORMAL MITRAL VALVE: NORMAL PULMONIC VALVE: NORMAL AORTIC VALVE: NORMAL PERICARDIAL EFFUSION: NONE AORTIC ROOT: NORMAL LEFT VENTRICULAR WALL MOTION: NORMAL EJECTION FRACTION, DECREASED LEFT VENTRICULAR COMPLIANCE. DOPPLER/COLOR FLOW: MILD MITRAL AND TRICUSPID REGURGITATION. COMMENTS: MILD MITRAL AND TRICUSPID REGURGITATION. LEFT VENTRICULAR HYPERTROPHY. NORMAL EJECTION FRACTION. DECREASED LEFT VENTRICULAR COMPLIANCE. TECHNOLOGIST: JARED DSOUZA
--- NOTE | 2019-02-18 15:35 | CON ---
Date of Consultation: 02/18/2019 Reason For Consultation: Anasarca, elevated BUN and creatinine. History Of Present Illness: This is a pleasant 63-year-old female, well known to me from the previou s admission and from the office with significant past medical history of hypertension, diabetes compl icated with neuropathy and nephropathy, and nephrotic range proteinuria. Workup including serology, serum protein electrophoresis was negative, it was secondary mostly to diabetes nephropathy, coronary artery disease status post PTCA, complicated with congestive heart failure, diastolic dysfunction, c hronic kidney disease stage 4 secondary to diabetes nephropathy with nephrotic range proteinuria, nor mal size kidney. Baseline creatinine 2.3 to 2.6, GFR on the 20. Patient used to follow with Dr. Jillian jasso. Patient, according to her, came because of increased leg swelling for the last few days with shor tness of breath. For that reason, she reported to the emergency room. In the emergency room, found to have hypertension with urgent hypertension back in January 27, treated and resolved. Patient also complaining from diarrhea for the last 3 weeks. Patient workup in the hospital showed elevation in BUN and creatinine, creatinine 2.3, and anasarca, for that reason, patient was admitted. Patient als o found to have colitis. Past Medical History: 1.Coronary artery disease, status post PTCA, complicated with congestive heart failure, diastolic dy sfunction. Echocardiogram last year, ejection fraction of 58. 2.COPD. 3.Chronic kidney disease stage 4. Baseline creatinine 2.3 to 2.6. GFR of 20. 4.Hypertension. 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 6.Diabetes complicated with neuropathy, retinopathy, and nephropathy. 7.Obesity. Social History: Denies smoking. Denies drinking. Denies drugs abuse. Allergies: TO MORPHINE, CEFEPIME, TRAMADOL, AND ZOFRAN. Family History: Positive for diabetes and hypertension. Review of Systems: Head and Neck: No red eye. No ear pain. GI: Increased abdominal girth. Has diarrhea. : No polyuria, no dysuria, no hematuria. PLATEMAN: No vaginal discharge. Respiratory: Has shortness of breath. Cardiovascular: Has leg edema. Has orthopnea. Endocrine: No polydipsia. Skin: No rash. Neurologic: Has neuropathy. Musculoskeletal: No joint pain. Physical Examination: General: When I saw the patient, the patient lying in bed, on nasal cannula. Vital Signs: Blood pressure 172/88, pulse of 80. Chest: Decreased entry bilateral base. Crackles on the left. Heart: S1, S2. Systolic murmur. Abdomen: Ascites. Extremities: +3 edema with erythema. Neurologic: Alert and oriented x3. No focal. Medications: Home medications include carvedilol, nifedipine, nicotine, isosorbide, insulin, gabapen tin, Lasix 40, breathing treatment, Plavix, atorvastatin, allopurinol. Current medications in the hospital include: 1.Tylenol. 2.Albuterol. 3.Levaquin 250 daily. 4.Clindamycin. 5.Cefepime. 6.Nicotine patch. 7.Plavix. 8.Lasix 40 b.i.d. 9.Atorvastatin. 10.Carvedilol 12.5. 11.Nifedipine 60. 12.Breathing treatment. 13.Magnesium sulfate. Laboratory Data: WBC 9.9, H and H of 9.9/31.4, platelets of 215. Sodium 139, potassium 4.6, bicarb 25, BUN 54, creatinine 2.4, calcium 7.8, magnesium 1.8. T-sat in the previous admission 11. TSH 3.2 . PTH 47. Assessment And Plan: 1.Chronic kidney disease stage 4, nephrotic range proteinuria with anemia secondary to diabetes neph ropathy/cardiorenal, stable on baseline, over volume. I am going to go ahead and increase Lasix to 8 0 mg b.i.d. We will monitor the patient. 2.Hypertension, not controlled. With the presence of over volume, I am going to utilize the blood p ressure for more diuresis. I am going to increase the Lasix to 80 mg b.i.d. We will go ahead and in crease the carvedilol to 25 mg. We will start the patient on nitroglycerin patch and we will follow up the patient. 3.Colitis. I agree with current antibiotic, as cefepime, Levaquin dose appropriate. I think we can get rid of clindamycin and cefepime, and place the patient on Flagyl. We will follow up. 4.Hypomagnesemia. Agree with supplement. Thank you Dr. Maharaj for allowing us to participate in the care of your patient. GAMA Voice ID: [id number] Report ID: [id number]
[2019-02-18] MEDS: FUROSEMIDE 40 MG/4 ML VIAL IV SCH (17:10)
--- NOTE | 2019-02-18 18:26 | CON ---
Date of Consultation: 02/18/2019 Reason For Consultation: Congestive heart failure. History Of Present Illness: Ms. Priest is a 63-year-old Latin-[place] woman with history of hypertens ion, chronic diastolic congestive heart failure, diabetes, dyslipidemia, gout, coronary artery diseas e, neuropathy, and COPD, came in with congestive heart failure, pedal edema, shortness of breath, PND , orthopnea. No palpitation. No syncope. Denied any chest pain. Denied any unexplained nausea, vo miting, diaphoresis. Denied any syncope. Denied any fever or chills. Ms. Priest actually had end-sta ge renal disease not long ago, underwent dialysis twice and then it was stopped. She has also had a history of CABG. Allergies: MORPHINE, VANCOMYCIN, , PENICILLIN, NITROGLYCERIN. Review of Systems: Negative. Social History: Negative. Family History: Noncontributory. Medications: At home include inhalers, Plavix, Lipitor, allopurinol, Lasix, insulin, Neurontin, and hydralazine. Physical Examination: General: She appear to be in mild respiratory distress. Vital Signs: Stable. She was afebrile. HEENT: Negative. Neck: Supple with no bruit, lymphadenopathy, but she had JVD. Chest: Some rales at the bases. Cardiac: Regular rhythm and rate with S4 gallop. No murmurs or rubs. Abdomen: Benign. Extremities: Revealed 2+ edema. Skin: Moist. Neurological: She was nonfocal. Vascular: Pulses were present bilaterally and symmetrically. Diagnostic Data: Showed a creatinine of 2.35. Hemoglobin is 10.5, white count of 14,000. Troponin was 0.09. Her pO2 was 59, pCO2 of 33, pH of 7.41. Chest x-ray showed right pleural effusion and lef t pleural effusion, mild. Abdominal CT showed colitis. EKG showed sinus rhythm with right ventricul ar hypertrophy. Echocardiogram in 2018 showed diastolic dysfunction with normal ejection fraction. Impression: 1.Acute on chronic systolic congestive heart failure. 2.Chronic renal insufficiency. 3.Elevated troponin secondary to renal insufficiency and congestive heart failure. 4.Bilateral pleural effusion . 5.Right ventricular hypertrophy. 6.Colitis. 7.Mild anemia. 8.Elevated white count. 9.History of coronary artery disease, status post coronary artery bypass grafting, stable. 10.Hypertension, stable. 11.Diabetes, stable. 12.Dyslipidemia, on therapy. 13.Gout. 14.Neuropathy. 15.Chronic obstructive pulmonary disease. Plan: I think Ms. Priest needs to be diuresed. Salt restriction and fluid restriction. Continue her present regimen Coreg and the Lasix. I think she needs to have her Procardia stop that is not helping of her edema. Renal consultation is recommended. I will continue to follow her. JAMIA/CELESTINE Voice ID: [id number] Report ID: [id number]
[2019-02-18] MEDS: carvediloL 25 MG TAB PO SCH (21:42)
[2019-02-18] MEDS: ATORVASTATIN 40 MG TAB PO SCH (21:44)
--- NOTE | 2019-02-18 22:53 | PN ---
Subjective: This patient was seen and examined at the bedside with RN. Patient is doing much better regarding to her breathing. Patient also feeling more active and stronger. Her lower extremity rosalia ma has greatly improved. She can bend her knee while she could not do it yesterday. No fever or chi lls. No nausea or vomiting. No shortness of breath or chest pain. Physical Examination: Vital Signs: Temperature 97.5, heart rate 62, blood pressure 159/110, respiratory rate 18, oxygen sa turation 94% on 2 L NC oxygen. HEENT: PERRLA. EOMI. Neck: Supple. No JVD. Chest: Clear to auscultation. No labored breathing. No wheezing. Heart: Normal S1, S2. Regular rhythm and rate. No murmur. Abdomen: Soft, nontender. Lower abdominal edema has improved. Extremities: Lower extremity, no cyanosis. The edema has improved. Skin: Appears to be shrinking. The redness and the blisters have been improved. No discharge. Neuro: Patient awake and alert. Nonfocal. Mood stable. Laboratory Data: WBC 9.9, hemoglobin 9.9, platelet 215. Sodium 139, potassium 4.6, creatinine 2.4, blood sugar 120, AST 12, ALT 11. Assessment/plan: 1.Acute respiratory failure. This is likely due to acute on chronic congestive heart failure and fl uid retention. This has greatly improved after diuresis. Continue DuoNeb nebulization and NC oxygen . 2.Acute on chronic diastolic congestive heart failure. Cardiology was consulted. Echo demonstrated normal ejection fraction with left ventricular hypertrophy. She is on IV Lasix and Coreg. 3.Chronic kidney disease, stage 4. Creatinine 2.4, which is close to her baseline. Nephrology has been following this patient and increased the IV Lasix to 80 mg for diuresis. 4.Colitis. Patient has some diarrhea. We will continue IV Levaquin. Discontinue the IV Ceftin. 5.Lower extremity cellulitis. This patient experienced a redness and a blister on the lower extremi ty. She is on IV clindamycin. The redness and the blister have been greatly improved. 6.Hypertension. Blood pressure is on the higher side. [employer] increased Coreg to 25 b.i.d. an d added nitroglycerin patch. Continue diuresis. We will monitor. 7.Diabetes. Continue sliding scale and a diabetic diet. We will resume home diabetic agents. 8.Chronic obstructive pulmonary disease. Patient on DuoNeb nebulization. There is no wheezing. Ov erall, this patient is improving. She is a SNF candidate due to multiple comorbidities. Case manage r was consulted. She probably can be discharged in 2-3 days. QT/MODL Voice ID: [id number] Report ID: [id number]
[2019-02-19] MEDS: CLINDAMYCIN INJ 600 MG in NA CHLORIDE 0.9% 50 ML IV SCH ×3 (00:03→16:41)
[2019-02-19] MEDS: FENTANYL CITR 100 MCG/2 ML IV PRN ×4 (00:03→23:35)
[2019-02-19] MEDS: IPRATROPIUM BROM 0.5MG/2.5ML NEB SCH ×4 (02:00→19:38)
[2019-02-19] MEDS: ALBUTEROL 2.5 MG/3 ML NEB SOL NEB SCH ×4 (02:00→19:38)
[2019-02-19 05:46] LABS: Absolute Lymphocytes (CBC) 1.7 K/uL (0.7-4.9); Basophils % 0.6 % (0-1.3); Hematocrit 29.2 % (36.0-45.0); Lymphocytes % 25.3 % (15.3-44.8); MPV 7.9 fL (7.6-11.3); RBC Red Blood Cell Count 3.63 M/uL (3.86-4.86)
[2019-02-19 06:21] LABS: Ferritin 42.8 ng/mL (8-388); Folic Acid, (Folate) 9.7 ng/mL (3.1-17.5); Phosphorus 3.8 mg/dL (2.5-4.9)
[2019-02-19] MEDS: INSULIN -REGULAR HUMAN 50 UNIT/0.5 ML ML SQ SCH ×4 (07:30→21:00)
[2019-02-19] MEDS: NITROGLYCERIN 0.2 MG/HR (5 MG) PATCH TD SCH (09:00)
[2019-02-19] MEDS: HEPARIN 5000 UNIT/ML 1 ML VIAL SQ SCH ×2 (09:18→21:32)
[2019-02-19] MEDS: FUROSEMIDE 40 MG/4 ML VIAL IV SCH ×2 (09:18→16:41)
[2019-02-19] MEDS: GABAPENTIN 100 MG CAP PO SCH ×3 (09:19→21:33)
[2019-02-19] MEDS: CLOPIDOGREL 75 MG TABLET PO SCH (09:19)
[2019-02-19] MEDS: NICOTINE 14 MG/PAT TD SCH (09:20)
[2019-02-19] MEDS: MEDIHONEY 44 ML TOPICAL TUBE TOP SCH (09:21)
[2019-02-19] MEDS: Levofloxacin 250mg IV 250 MG/50 ML BAG IV SCH (09:21)
[2019-02-19] MEDS: INSULIN GLARGINE 100 UNITS/ML SQ SCH ×2 (09:22→21:32)
[2019-02-19] MEDS: GLUCERNA SHAKE 237 ML CAN PO SCH (09:23)
[2019-02-19] MEDS: carvediloL 25 MG TAB PO SCH (10:40)
[2019-02-19] MEDS: NIFEDIPINE XL 60 MG TABLET PO SCH (10:41)
[2019-02-19] MEDS: ISOSORBIDE MONO SR 30 MG TAB PO SCH (10:41)
--- NOTE | 2019-02-19 12:24 | P.PN ---
Subjective Date of Service: 02/19/19 Subjective: No new changes Pt with HX of CKD IV, DM, HTn . admitted for fluid overload Today cr stable low HR , will reduce Coreg low UO, will add metolazone and increase lasix had serology w/u in the past all negative Physical Examination - Vital Signs Temperature: 97.1 F Blood Pressure: 150/66 Pulse: 51 Respirations: 16 Pulse Ox (%): 91 - Physical Exam General: Oriented x3, Mild distress, Obese Neck: Supple, Without JVD or thyroid abnormality Respiratory: Clear to auscultation bilaterally, Normal air movement Cardiovascular: Regular rate/rhythm, Normal S1 S2, No gallops, No rubs, No murmurs, Edema Gastrointestinal: Normal bowel sounds, Distended, Ascites Musculoskeletal: Swelling, Erythema - Studies Microbiology Data (last 24 hrs): 02/17/19 15:45 Blood - Blood Gram Stain - Final 02/17/19 15:27 Blood - Blood Gram Stain - Final Assessment And Plan - Current Problems (Diagnosis) (1) Acute renal failure superimposed on stage 4 chronic kidney disease Current Visit: No Status: Acute Qualifiers: (2) Anasarca Onset Date: 10/03/17 Current Visit: No Status: Acute - Plan CKD IV with nephrotic range proteinuria Cr stable Abd Ct: no hydro CKD due to DM and HTN nephrosclerosis UA: +3 prot , no bld previous serology w/u -ve low UO , will increase lasix and add metolazone might benifit from lasix drip if no improvement in UO HTN acceptable for now will reduce coreg due to bradycardia anasarca due to CHF +/- CKD and hypoalbuminemia Diuretics as above DM as per primary celluilitis cont abx
[2019-02-19 15:23] LABS: C.diff Antigen/Toxin Ag neg : Tox neg (NEG : NEG)
--- NOTE | 2019-02-19 16:14 | P.PN ---
Subjective Date of Service: 02/19/19 Primary Care Provider: Darya Patiño Chief Complaint: Edema Subjective: Other (Patient appears improved. Less short of breath noted.) Physical Examination - Vital Signs Temperature: 97.1 F Blood Pressure: 150/66 Pulse: 51 Respirations: 16 Pulse Ox (%): 91 - Physical Exam General: Alert, In no apparent distress, Oriented x3, Cooperative HEENT: Atraumatic Neck: Supple Respiratory: Crackles/rales Cardiovascular: Normal pulses, Regular rate/rhythm Gastrointestinal: Normal bowel sounds, Soft and benign, Non-distended Musculoskeletal: No tenderness, No warmth Integumentary: Tenderness/swelling (Edema to the lower extremities bilateral improved) Neurological: Normal speech, Normal strength at 5/5 x4 extr, Normal tone, Normal affect - Studies Microbiology Data (last 24 hrs): 02/17/19 15:45 Blood - Blood Gram Stain - Final 02/17/19 15:27 Blood - Blood Gram Stain - Final Medications List Reviewed: Yes Assessment & Plan Discharge Plan: Home Plan to discharge in: Greater than 2 days Physician Review Additional Text: Impression: Acute on chronic respiratory failure likely related to acute on chronic congestive heart failure Acute on chronic kidney disease, stage IV Bacteremia with gram-negative rods likely from cellulitis Diarrhea likely related colitis Lower extremity cellulitis with edema Hypertension Diabetes mellitus type 2 COPD Chronic anemia with iron deficiency Plan: Acute on chronic respiratory failure likely related to acute on chronic congestive heart failure: Spoke with nephrology and cardiology. Nephrology plans to increase Lasix. Metolazone added. Continue to monitor output closely. If no significant output patient may require Lasix drip. Will continue to monitor and reassess. Will discuss with nephrology tomorrow. Patient desires to go home at discharge. Will arrange for home health and physical therapy at discharge likely in the next 2-3 days with clinical improvement. Acute on chronic kidney disease, stage IV: Continue with nephrology recommendation. Bacteremia with gram-negative rods likely from cellulitis: Continue IV antibiotic therapy. Await blood culture results. Diarrhea likely related colitis: This has improved. Antibiotics adjusted. Lower extremity cellulitis with edema: Continue IV antibiotic therapy. Will have wound care address and monitor. Hypertension: Medication adjusted by nephrology today. Diabetes mellitus type 2: Continue Accu-Cheks and provide sliding scale. COPD: Continue medication. Chronic anemia with iron deficiency: Will start IV iron. Time Spent Managing Pts Care (In Minutes): 55
[2019-02-19] MEDS: METOLAZONE 5 MG TABLET PO SCH (16:40)
[2019-02-19] MEDS: SOD FERRIC GLUC COMPLX/SUCROSE 125 MG in NA CHLORIDE 0.9% 100 ML IV SCH (18:09)
[2019-02-19] MEDS: carvediloL 12.5 MG TAB PO SCH (21:00)
[2019-02-19] MEDS: ATORVASTATIN 40 MG TAB PO SCH (21:33)
[2019-02-19] MEDS: MELATONIN 5 MG TABLET PO SCH (23:00)
[2019-02-20] MEDS: CLINDAMYCIN INJ 600 MG in NA CHLORIDE 0.9% 50 ML IV SCH ×2 (00:30→09:54)
[2019-02-20] MEDS: FUROSEMIDE 40 MG/4 ML VIAL IV SCH ×3 (01:12→16:37)
[2019-02-20] MEDS: ALBUTEROL 2.5 MG/3 ML NEB SOL NEB SCH ×4 (01:15→19:40)
[2019-02-20] MEDS: IPRATROPIUM BROM 0.5MG/2.5ML NEB SCH ×4 (01:15→19:40)
[2019-02-20 05:58] LABS: Absolute Lymphocytes (CBC) 1.6 K/uL (0.7-4.9); Basophils % 0.6 % (0-1.3); Hematocrit 30.4 % (36.0-45.0); Lymphocytes % 25.8 % (15.3-44.8); MPV 7.8 fL (7.6-11.3); RBC Red Blood Cell Count 3.76 M/uL (3.86-4.86)
[2019-02-20 06:10] LABS: Albumin 2.1 g/dL (3.4-5.0); Potassium 4.3 mmol/L (3.5-5.1)
[2019-02-20] MEDS: INSULIN -REGULAR HUMAN 50 UNIT/0.5 ML ML SQ SCH ×4 (07:30→20:56)
[2019-02-20] MEDS: MEDIHONEY 44 ML TOPICAL TUBE TOP SCH (09:00)
[2019-02-20] MEDS: FENTANYL CITR 100 MCG/2 ML IV PRN ×3 (09:53→22:41)
[2019-02-20] MEDS: Levofloxacin 250mg IV 250 MG/50 ML BAG IV SCH (09:54)
[2019-02-20] MEDS: SOD FERRIC GLUC COMPLX/SUCROSE 125 MG in NA CHLORIDE 0.9% 100 ML IV SCH (09:54)
[2019-02-20] MEDS: ISOSORBIDE MONO SR 30 MG TAB PO SCH (09:55)
[2019-02-20] MEDS: METOLAZONE 5 MG TABLET PO SCH (09:56)
[2019-02-20] MEDS: HEPARIN 5000 UNIT/ML 1 ML VIAL SQ SCH ×2 (09:56→20:55)
[2019-02-20] MEDS: NICOTINE 14 MG/PAT TD SCH (09:56)
[2019-02-20] MEDS: carvediloL 12.5 MG TAB PO SCH ×2 (09:57→20:55)
[2019-02-20] MEDS: CLOPIDOGREL 75 MG TABLET PO SCH (09:57)
[2019-02-20] MEDS: NIFEDIPINE XL 60 MG TABLET PO SCH (09:57)
[2019-02-20] MEDS: GABAPENTIN 100 MG CAP PO SCH ×3 (09:57→20:55)
[2019-02-20] MEDS: INSULIN GLARGINE 100 UNITS/ML SQ SCH (09:58)
[2019-02-20] MEDS: GLUCERNA SHAKE 237 ML CAN PO SCH (09:58)
[2019-02-20] MEDS: NITROGLYCERIN 0.2 MG/HR (5 MG) PATCH TD SCH (10:08)
--- NOTE | 2019-02-20 11:12 | RAD REPORT ---
EXAM DESCRIPTION: RAD - Chest Single View - 02/20/2019 11:06 am CLINICAL HISTORY: COPD Chest pain. COMPARISON: Chest Single View dated 02/17/2019; Chest Pa And Lat (2 Views) dated 01/28/2019; Chest S jim View dated 01/27/2019; Chest Single View dated 11/04/2018 FINDINGS: Portable technique limits examination quality. Mild improvement is seen in right pleural and parenchymal opacification in the right base. Trace left pleural effusion. Heart is moderately enlarged. Sternotomy wires noted.
--- NOTE | 2019-02-20 11:59 | P.PN ---
Subjective Date of Service: 02/20/19 Primary Care Provider: Darya Patiño Chief Complaint: Edema Subjective: Improving Physical Examination - Vital Signs Temperature: 97.0 F Blood Pressure: 157/72 Pulse: 54 Respirations: 18 Pulse Ox (%): 98 - Physical Exam General: Alert, In no apparent distress, Oriented x3, Cooperative HEENT: Atraumatic Neck: Supple Respiratory: Other (Better inspiration and expiration. Less crackles) Cardiovascular: Normal pulses, Regular rate/rhythm Gastrointestinal: Normal bowel sounds, Soft and benign, Non-distended Integumentary: Other (Edema to the lower extremity improved. Bandages to the lower extremity noted.) Neurological: Normal speech, Normal strength at 5/5 x4 extr, Normal tone, Normal affect - Studies Microbiology Data (last 24 hrs): 02/17/19 15:27 Blood - Blood Gram Stain - Final 02/17/19 15:45 Blood - Blood Gram Stain - Final Medications List Reviewed: Yes Assessment & Plan Discharge Plan: Home (With home health and physical therapy) Plan to discharge in: Greater than 2 days Physician Review Additional Text: Impression: Acute on chronic respiratory failure likely related to acute on chronic congestive heart failure Acute on chronic kidney disease, stage IV Bacteremia with culture positive for Pseudomonas likely from cellulitis Diarrhea likely related colitis Lower extremity cellulitis with edema Hypertension Diabetes mellitus type 2 COPD Chronic anemia with iron deficiency Plan: Acute on chronic respiratory failure likely related to acute on chronic congestive heart failure: Continue with diuresis. Chest x-ray shows improvement. Will discuss with nephrology. Await further recommendations. Lasix was increased yesterday and metolazone added. Continue fluid restriction. Continue wean off oxygen. Physical therapy ordered. Patient desires to go home with home health and physical therapy at discharge. Anticipate discharge in the next 2-3 days. Acute on chronic kidney disease, stage IV: Continue diuretic therapy. Nephrology to further adjust. Continue with nephrology recommendation. Bacteremia with culture positive for Pseudomonas likely from cellulitis: Patient appears improved. Will adjust antibiotics to oral Levaquin which is sensitive. Continue wound care. Patient will require a total of 2 weeks of antibiotic therapy. Diarrhea likely related colitis: This has improved. Antibiotics adjusted. C diff negative. Lower extremity cellulitis with edema: Antibiotics adjusted. Will have wound care address and monitor. Hypertension: Continue to adjust medication for better control. Diabetes mellitus type 2: Will decrease basal insulin. Continue Accu-Cheks and provide sliding scale. COPD: Continue medication. Respiratory to wean off oxygen. Chronic anemia with iron deficiency: Continue IV iron. Time Spent Managing Pts Care (In Minutes): 55
[2019-02-20] MEDS: levoFLOXacin 250 MG TAB PO SCH (14:54)
--- NOTE | 2019-02-20 18:06 | PN ---
Date of Progress Note: 02/20/2019 Subjective: Patient was admitted with anasarca, started on diuresis yesterday. We add metolazone. Kidney function still slightly declining, but urine output has been improved significantly. Physical Examination: Vital Signs: When I saw the patient blood pressure 157/72, pulse of 54, afebrile. Patient had good urine output of 1000. Weight hollings[place], did not improve yet. Chest: Decreased entry bilateral base. Heart: S1, S2. Systolic murmur. Abdomen: Ascites. Extremities: +2 edema. Laboratory Data: WBC 6.2, H and H 9.5/30.4, Sodium 139, potassium 4.3, bicarb 23, BUN 62, creatinine 2.5, calcium 7.9, phosphorus of 4, albumin 2.1. Vitamin D still pending. TSH was not done. T-sat of 6. Ferritin of 42. Current Medications: The patient is on Lasix 80 b.i.d., metolazone, Levaquin 250, nicotine patch, IV iron, Plavix, atorvastatin, carvedilol 12.5, gabapentin , metolazone 5 daily, ipratropium. Assessment And Plan: 1. Acute kidney injury secondary to cardiorenal, still over volume, response to current diuresis. I am going to increase the Lasix to 80 t.i.d. and we will monitor. 2. Hypertension. We will utilize the blood pressure for more diuresis. 3. Anasarca secondary to renal failure/cardiorenal. Patient nephrotic range proteinuria, I am going to repeat her TSH. Continue diuresis for the time being. GAMA Voice ID: [id number] Report ID: [id number] MTDDannielle
[2019-02-20] MEDS: DULERA 100/5 (MOMETASONE/FORMOTEROL) INHALER IH SCH (20:54)
[2019-02-20] MEDS: ATORVASTATIN 40 MG TAB PO SCH (20:55)
[2019-02-20] MEDS: MELATONIN 5 MG TABLET PO SCH (20:55)
--- NOTE | 2019-02-20 23:52 | PN ---
Date of Progress Note: 02/19/2019 History: Ms. Priest was admitted with renal failure, congestive heart failure. Her echocardiogram shivnai wed an ejection fraction of 66% with decreased left ventricular compliance, mild mitral and tricuspid regurgitation. The patient is being diuresed and has improved since admission. She has grown a pos itive cultures for Pseudomonas from cellulitis. She has diarrhea from colitis. She is being treated for both of those. Her blood pressure, diabetes, COPD, and anemia are well controlled. Chest x-ray shows improvement. She is now on Lasix, and metolazone, fluid restriction. She is being weaned off oxygen. She is requesting to go home, but that will probably happen in a couple days after antibiot ic therapy. Nephrology is following as well. I will be available for questions if the need arise. I agree with her present regimen. CHIDI Voice ID: [id number] Report ID: [id number]
[2019-02-21] MEDS: FUROSEMIDE 40 MG/4 ML VIAL IV SCH ×2 (00:10→08:42)
[2019-02-21] MEDS: ALBUTEROL 2.5 MG/3 ML NEB SOL NEB SCH ×4 (02:00→20:00)
[2019-02-21] MEDS: IPRATROPIUM BROM 0.5MG/2.5ML NEB SCH ×4 (02:00→20:00)
[2019-02-21] MEDS: TEMAZEPAM 15 MG CAP PO PRN (02:17)
[2019-02-21] MEDS: HYDROMORPHONE HCL 1 MG/ML INJ IV PRN ×3 (02:17→20:20)
[2019-02-21 06:06] LABS: Absolute Lymphocytes (CBC) 1.7 K/uL (0.7-4.9); Basophils % 1.1 % (0-1.3); Hematocrit 29.5 % (36.0-45.0); Lymphocytes % 24.9 % (15.3-44.8); MPV 8.1 fL (7.6-11.3); RBC Red Blood Cell Count 3.64 M/uL (3.86-4.86)
[2019-02-21] MEDS: INSULIN -REGULAR HUMAN 50 UNIT/0.5 ML ML SQ SCH ×4 (07:30→20:19)
[2019-02-21 07:58] LABS: Albumin 2.1 g/dL (3.4-5.0); Magnesium 1.9 mg/dL (1.8-2.4); Phosphorus 3.6 mg/dL (2.5-4.9); Uric Acid 8.2 mg/dL (2.6-6.0)
[2019-02-21 08:00] LABS: Thyroid Stimulating Hormone 7.76 uIU/mL (0.360-3.740)
[2019-02-21] MEDS: DULERA 100/5 (MOMETASONE/FORMOTEROL) INHALER IH SCH ×2 (08:39→20:19)
[2019-02-21] MEDS: NICOTINE 14 MG/PAT TD SCH (08:41)
[2019-02-21] MEDS: HEPARIN 5000 UNIT/ML 1 ML VIAL SQ SCH ×2 (08:41→20:17)
[2019-02-21] MEDS: GABAPENTIN 100 MG CAP PO SCH ×3 (08:42→20:18)
[2019-02-21] MEDS: CLOPIDOGREL 75 MG TABLET PO SCH (08:42)
[2019-02-21] MEDS: METOLAZONE 5 MG TABLET PO SCH ×2 (08:43→13:00)
[2019-02-21] MEDS: ISOSORBIDE MONO SR 30 MG TAB PO SCH (08:44)
[2019-02-21] MEDS: carvediloL 12.5 MG TAB PO SCH ×2 (08:44→20:18)
[2019-02-21] MEDS: NIFEDIPINE XL 60 MG TABLET PO SCH (08:44)
[2019-02-21] MEDS: INSULIN GLARGINE 100 UNITS/ML SQ SCH (08:45)
[2019-02-21] MEDS: NITROGLYCERIN 0.2 MG/HR (5 MG) PATCH TD SCH (08:47)
[2019-02-21] MEDS: MEDIHONEY 44 ML TOPICAL TUBE TOP SCH (08:47)
[2019-02-21] MEDS: SOD FERRIC GLUC COMPLX/SUCROSE 125 MG in NA CHLORIDE 0.9% 100 ML IV SCH (09:16)
[2019-02-21] MEDS: GLUCERNA SHAKE 237 ML CAN PO SCH (09:17)
--- NOTE | 2019-02-21 09:55 | P.PN ---
Subjective Date of Service: 02/21/19 Primary Care Provider: Darya Patiño Chief Complaint: Edema Subjective: Improving (Patient continues to improve. Patient off oxygen this morning) Physical Examination - Vital Signs Temperature: 97.5 F Blood Pressure: 131/62 Pulse: 53 Respirations: 16 Pulse Ox (%): 91 - Physical Exam General: Alert, In no apparent distress, Oriented x3, Cooperative HEENT: Atraumatic Neck: Supple Respiratory: Clear to auscultation bilaterally, Normal air movement Cardiovascular: Normal pulses, Regular rate/rhythm Gastrointestinal: Normal bowel sounds, Soft and benign, Non-distended Integumentary: Tenderness/swelling (Less edema to the lower extremities) Neurological: Normal speech, Normal strength at 5/5 x4 extr, Normal tone - Studies Microbiology Data (last 24 hrs): 02/17/19 15:27 Blood - Blood Gram Stain - Final 02/17/19 15:45 Blood - Blood Gram Stain - Final Medications List Reviewed: Yes Assessment & Plan Discharge Plan: Home Plan to discharge in: 24 Hours Physician Review Additional Text: Impression: Acute on chronic respiratory failure likely related to acute on chronic diastolic congestive heart failure Acute on chronic kidney disease, stage IV Bacteremia with culture positive for Pseudomonas likely from cellulitis Diarrhea likely related colitis Lower extremity cellulitis with edema Hypertension Diabetes mellitus type 2 COPD Chronic anemia with iron deficiency Plan: Acute on chronic respiratory failure likely related to acute on diastolic chronic congestive heart failure: Patient has improved. Continue with diuresis. Will discuss further with nephrology. Lasix was increased yesterday. Continue physical therapy. Patient off oxygen today. Anticipate discharge tomorrow with home health and physical therapy. Acute on chronic kidney disease, stage IV: Continue diuretic therapy. Nephrology to further adjust. Continue with nephrology recommendation. Bacteremia with culture positive for Pseudomonas likely from cellulitis: Patient appears improved. Patient on Levaquin. Patient will require 2 weeks of antibiotic therapy. Recheck blood culture at this time. Diarrhea likely related colitis: This has improved. Antibiotics adjusted. C diff negative. Lower extremity cellulitis with edema: Antibiotics adjusted. Will have wound care address and monitor. Hypertension: Blood pressure better controlled. Diabetes mellitus type 2: Continue with basal insulin. Continue Accu-Cheks and provide sliding scale. COPD: Continue medication. Respiratory to wean off oxygen. Chronic anemia with iron deficiency: Continue to monitor closely. Continue iron supplementation Time Spent Managing Pts Care (In Minutes): 55
[2019-02-21] MEDS ORDERED: MAGNESIUM SULFATE 1 gm IVPB 1 GM/100 ML BAG IV ONE (13:00)
[2019-02-21] MEDS: FUROSEMIDE 40 MG TABLET PO SCH ×2 (14:49→20:17)
--- NOTE | 2019-02-21 17:17 | PN ---
Date of Progress Note: 02/21/2019 Subjective: Patient was admitted with anasarca, chronic kidney disease. Patient been diuresis very well. Physical Examination: Vital Signs: Blood pressure 131/62, pulse of 53. Patient had good urine output of 4 L. Patient los t 17 pounds compared to yesterday. Chest: Decreased entry bilateral base. Heart: S1, S2 regular. Abdomen: Soft, nontender. Extremity: +2 edema. Laboratory Data: WBC 6.8, H and H 9.3/29.5, platelets 225. Sodium 138, potassium 4, bicarb 26, BUN 58, creatinine 2.2. GFR of 22, which is close to her baseline. Uric acid 8.2, calcium 7.7, phosphor us 3.6, magnesium 1.8, albumin 2.1. Corrected calcium is 9.3. Current Medications: The patient on its include: 1.Levaquin. 2.Breathing treatment. 3.IV iron. 4.Plavix. 5.Atorvastatin. 6.Carvedilol. 7.Isosorbide. 8.Nifedipine. 9.Gabapentin. 10.Lasix 80 t.i.d. 11.Metolazone 5 mg daily. 12.Zofran. Assessment And Plan: 1.Acute kidney injury on chronic kidney disease with over volume, response very well to current diur esis dose. I am going to go ahead and decrease metolazone to every 48 hours. Change the Lasix to or al. If the patient continue to stay stable, patient will be able to be discharged tomorrow. 2.Hypertension. We will keep utilizing blood pressure for more diuresis. 3.Anasarca secondary to cardiorenal response very well to current diuresis. We will change diuresis as above. 4.Hypomagnesemia. I will supplement. NATI/CELESTINE Voice ID: [id number] Report ID: [id number]
[2019-02-21] MEDS: MELATONIN 5 MG TABLET PO SCH (20:17)
[2019-02-21] MEDS: ATORVASTATIN 40 MG TAB PO SCH (20:18)
[2019-02-22] MEDS: HYDROMORPHONE HCL 1 MG/ML INJ IV PRN ×3 (01:54→21:27)
[2019-02-22] MEDS: ALBUTEROL 2.5 MG/3 ML NEB SOL NEB SCH ×4 (02:00→20:00)
[2019-02-22] MEDS: IPRATROPIUM BROM 0.5MG/2.5ML NEB SCH ×4 (02:00→20:00)
[2019-02-22] MEDS: ONDANSETRON 4 MG/2 ML VIAL IV PRN ×2 (03:15→11:45)
[2019-02-22 05:42] VITALS: BMI 32.5
[2019-02-22 05:51] LABS: Absolute Lymphocytes (CBC) 1.4 K/uL (0.7-4.9); Basophils % 0.9 % (0-1.3); Hematocrit 30.9 % (36.0-45.0); Lymphocytes % 24.2 % (15.3-44.8); MPV 8.1 fL (7.6-11.3); RBC Red Blood Cell Count 3.82 M/uL (3.86-4.86)
[2019-02-22 05:59] LABS: Albumin 2.4 g/dL (3.4-5.0); Phosphorus 3.9 mg/dL (2.5-4.9)
[2019-02-22] MEDS: INSULIN -REGULAR HUMAN 50 UNIT/0.5 ML ML SQ SCH ×4 (07:30→21:00)
[2019-02-22] MEDS: NICOTINE 14 MG/PAT TD SCH (08:51)
[2019-02-22] MEDS: DULERA 100/5 (MOMETASONE/FORMOTEROL) INHALER IH SCH ×2 (08:51→21:19)
[2019-02-22] MEDS: INSULIN GLARGINE 100 UNITS/ML SQ SCH (08:52)
[2019-02-22] MEDS: GABAPENTIN 100 MG CAP PO SCH ×3 (08:53→21:24)
[2019-02-22] MEDS: NIFEDIPINE XL 60 MG TABLET PO SCH (08:53)
[2019-02-22] MEDS: ISOSORBIDE MONO SR 30 MG TAB PO SCH (08:54)
[2019-02-22] MEDS: carvediloL 12.5 MG TAB PO SCH ×2 (08:54→21:24)
[2019-02-22] MEDS: FUROSEMIDE 40 MG TABLET PO SCH ×3 (08:54→21:25)
[2019-02-22] MEDS: CLOPIDOGREL 75 MG TABLET PO SCH (08:54)
[2019-02-22] MEDS: GLUCERNA SHAKE 237 ML CAN PO SCH (08:55)
[2019-02-22] MEDS: NITROGLYCERIN 0.2 MG/HR (5 MG) PATCH TD SCH (08:55)
[2019-02-22] MEDS: HEPARIN 5000 UNIT/ML 1 ML VIAL SQ SCH ×2 (08:56→21:24)
[2019-02-22] MEDS: MEDIHONEY 44 ML TOPICAL TUBE TOP SCH (08:56)
[2019-02-22] MEDS: SOD FERRIC GLUC COMPLX/SUCROSE 125 MG in NA CHLORIDE 0.9% 100 ML IV SCH (08:58)
--- NOTE | 2019-02-22 09:40 | P.DS ---
Admission Date: 02/17/19 Discharge Date: 02/22/19 Primary Care Provider: Darya Patiño Disposition: DC HOME/HOME HEALTH CARE Discharge Condition: GOOD Reason for Admission: Edema Consultations: Cardiology-Dr. Raymond Nephrology-Dr. Fernando Procedures: CT scan: FINDINGS: The evaluation of solid organs, vessels and bowel is limited secondary to the lack of contrast administration. A moderate right pleural effusion. Diffuse edema throughout the subcutaneous tissues. A moderate amount of ascites is present within the abdomen and pelvis. The liver, spleen, pancreas, adrenals and kidneys appear grossly normal. . There is no evidence of diverticulitis. The wall of left colon is mildly thickened. A Greene catheter is present within the bladder Vascular calcifications are present IMPRESSION: Mild left colitis Anasarca Follow up CXR: FINDINGS: Portable technique limits examination quality. Mild improvement is seen in right pleural and parenchymal opacification in the right base. Trace left pleural effusion. Heart is moderately enlarged. Sternotomy wires noted. ECHO: EF 66% LEFT VENTRICULAR WALL MOTION: NORMAL EJECTION FRACTION, DECREASED LEFT VENTRICULAR COMPLIANCE. DOPPLER/COLOR FLOW: MILD MITRAL AND TRICUSPID REGURGITATION. COMMENTS: MILD MITRAL AND TRICUSPID REGURGITATION. LEFT VENTRICULAR HYPERTROPHY. NORMAL EJECTION FRACTION. DECREASED LEFT VENTRICULAR COMPLIANCE. Impression: Acute on chronic respiratory failure likely related to acute on chronic diastolic congestive heart failure Acute on chronic kidney disease, stage IV Bacteremia with culture positive for Pseudomonas likely from cellulitis Diarrhea likely related colitis Lower extremity cellulitis with anasarca Hypertension Diabetes mellitus type 2 COPD Chronic anemia with iron deficiency Brief History of Present Illness: 63-year-old female with multiple medical problems including CAD with prior CABG, COPD, CHF, chronic renal disease stage IV, diabetes, hypertension and hyperlipidemia. Patient presented with chest pain and shortness of breath. Patient also had some diarrhea. Patient found to have anasarca with lower extremity cellulitis. CT revealed possible left colitis. Chest x-ray showed fluid overload. Patient was admitted for further evaluation and treatment. Hospital Course: Patient presented with shortness of breath secondary to acute on chronic respiratory failure related to acute on chronic diastolic CHF. Patient also had acute on chronic kidney disease stage 4. Patient was seen and evaluated by Cardiology and Nephrology. Echocardiogram shows ejection fraction of 66%. Patient required IV diuresis. Patient also placed in a fluid restriction. Medications have been adjusted. At discharge renal function stable. At discharge she will continue with Lasix 80 mg 1 pill 3 times a day and Zaroxolyn 5 mg every 48 hr. She is to continue with a 1500 cc per day fluid restriction and low-salt diet. She is to monitor her weight daily. If her weight increases by more than 5 lb she is to contact nephrology for further recommendation. Recommend to recheck lab-BMP in 1 week to monitor progress. Recommend follow up with nephrology in 1-2 weeks to continue her care. Recommend no further use of nonsteroidal anti-inflammatories. Future medications will need to be renally dosed. Patient also had cellulitis to the lower extremities. Patient was treated with IV antibiotic therapy. Patient had positive blood cultures. Bacteremia was treated. Wound culture positive for Pseudomonas. This was likely from her cellulitis. At discharge patient will continue with Levaquin 250 mg every 48 hr for 4 more doses. Recommend to continue with wound care including applying Medihoney daily. Recommend follow up at 1-2 weeks to monitor her progress. Home health and physical therapy along with wound care will be provided at discharge. Patient has underlying COPD. This has remained stable. At discharge she will continue with Dulera 2 puffs twice daily and albuterol puffs 3 times a day as needed for shortness of breath. Patient will continue with home oxygen to maintain sats above 90%. Recommend follow up with pulmonology as an outpatient to further address. Patient with hypertension. Medications have been adjusted. At discharge she will continue with carvedilol 12.5 mg 1 pill twice daily and nifedipine 60 mg daily. Recommend to maintain blood pressures less than 150/80. Further adjustment can be done by her PCP. Patient with diabetes mellitus type 2 insulin dependent. This has remained stable. At discharge she will continue with Levemir 10 units subcu twice daily. Recommend to maintain blood sugars less 140 fasting and less than 200 after meals. Further adjustment can be done by her PCP. Patient with diabetic neuropathy. At discharge she will continue with Neurontin 100 mg 1 pill 3 times a day. Patient with history of CAD and hyperlipidemia. At discharge she will continue with Plavix 75 mg daily and Lipitor 40 mg daily. Patient with tobacco history. Recommend nicotine patch daily. This can be further monitored and addressed by her PCP. Tobacco cessation education provided. Vital Signs/Physical Exam: Temp Pulse Resp BP Pulse Ox 97.4 F 65 18 160/69 H 90 L 02/22/19 08:00 02/22/19 08:54 02/22/19 08:00 02/22/19 08:54 02/22/19 08:00 General: Alert, In no apparent distress, Oriented x3, Cooperative HEENT: Atraumatic Neck: Supple Respiratory: Clear to auscultation bilaterally, Normal air movement Cardiovascular: Normal pulses, Regular rate/rhythm Gastrointestinal: Normal bowel sounds, Soft and benign, Non-distended Integumentary: Other (Edema to the lower extremities improved. Bandages to the lower extremity noted.) Neurological: Normal speech, Normal strength at 5/5 x4 extr, Normal tone, Normal affect Laboratory Data at Discharge: WBC 5.8 K/uL (4.3-10.9) D 02/22/19 05:11 Hgb 10.0 g/dL (12.0-15.0) L 02/22/19 05:11 Hct 30.9 % (36.0-45.0) L 02/22/19 05:11 Plt Count 223 K/uL (152-406) 02/22/19 05:11 PT 15.4 SECONDS (9.5-12.5) H 02/17/19 15:27 INR 1.32 02/17/19 15:27 APTT 36.8 SECONDS (24.3-36.9) 02/17/19 15:27 Sodium 138 mmol/L (136-145) 02/22/19 05:11 Potassium 4.0 mmol/L (3.5-5.1) 02/22/19 05:11 BUN 57 mg/dL (7-18) H 02/22/19 05:11 Creatinine 2.21 mg/dL (0.55-1.3) H 02/22/19 05:11 Glucose 113 mg/dL (74-106) H 02/22/19 05:11 Uric Acid 8.2 mg/dL (2.6-6.0) H 02/21/19 05:39 Phosphorus 3.9 mg/dL (2.5-4.9) 02/22/19 05:11 Magnesium 2.0 mg/dL (1.8-2.4) 02/22/19 05:11 Total Bilirubin 0.4 mg/dL (0.2-1.0) 02/18/19 05:31 AST 12 U/L (15-37) L 02/18/19 05:31 ALT 11 U/L (12-78) L 02/18/19 05:31 Alkaline Phosphatase 146 U/L (45-117) H 02/18/19 05:31 Troponin I 0.04 ng/mL (0.0-0.045) 02/18/19 22:16 Triglycerides 88 mg/dL (<150) 02/18/19 05:31 Cholesterol 54 mg/dL (<200) 02/18/19 05:31 HDL Cholesterol 28 mg/dL (40-60) L 02/18/19 05:31 Cholesterol/HDL Ratio 1.93 02/18/19 05:31 Lipase 50 U/L (73-393) L 02/17/19 15:27 Home Medications: Allopurinol [Zyloprim*] 100 mg PO BID 11/02/18 Atorvastatin Calcium [Lipitor] 40 mg PO DAILY 11/02/18 Gabapentin [Neurontin*] 1 tab PO TID 11/02/18 Insulin Detemir [Levemir] 10 units SQ BID 11/02/18 Isosorbide Mononitrate [Isosorbide Mononitrate ER] 30 mg PO DAILY 11/02/18 Nicotine [Nicoderm*] 1 patch TD DAILY 11/02/18 carvediloL [Coreg*] 12.5 mg PO BID 11/02/18 Clopidogrel Bisulfate [Plavix*] 75 mg PO DAILY 01/28/19 Albuterol Inhaler [Ventolin Inhaler*] 2 puff IH TID PRN #1 hfa.aer.ad 02/22/19 Furosemide [Lasix] 80 mg PO TID #90 tablet 02/22/19 Medihoney [Medihoney Woundcare Gel*] 1 appl TOP DAILY #1 tube 02/22/19 Mometasone/Formoterol [Dulera 100 Mcg/5 Mcg Inhaler] 2 puff IH BID #1 inhaler Nifedipine [Nifedipine ER] 60 mg PO DAILY #30 tablet.er 02/22/19 levoFLOXacin [Levaquin*] 250 mg PO Q48H #4 tab 02/22/19 metOLazone [Zaroxolyn*] 5 mg PO Q48H #30 tab 02/22/19 New Medications: Albuterol Inhaler [Ventolin Inhaler*] 2 puff IH TID PRN #1 hfa.aer.ad PRN Reason: Wheezing Furosemide [Lasix] 80 mg PO TID #90 tablet levoFLOXacin [Levaquin*] 250 mg PO Q48H #4 tab Medihoney [Medihoney Woundcare Gel*] 1 appl TOP DAILY #1 tube metOLazone [Zaroxolyn*] 5 mg PO Q48H #30 tab Mometasone/Formoterol [Dulera 100 Mcg/5 Mcg Inhaler] 2 puff IH BID #1 inhaler Nifedipine [Nifedipine ER] 60 mg PO DAILY #30 tablet.er Patient Discharge Instructions: 1. Recommend follow up with PCP within 1 week to follow up this hospitalization. Home health and physical therapy will be arranged prior to discharge. Home oxygen also to be arranged. 2. Patient presented with shortness of breath secondary to acute on chronic respiratory failure related to acute on chronic diastolic CHF. Patient also had acute on chronic kidney disease stage 4. Patient was seen and evaluated by Cardiology and Nephrology. Echocardiogram shows ejection fraction of 66%. Patient required IV diuresis. Patient also placed in a fluid restriction. Medications have been adjusted. At discharge renal function stable. At discharge she will continue with Lasix 80 mg 1 pill 3 times a day and Zaroxolyn 5 mg every 48 hr. She is to continue with a 1500 cc per day fluid restriction and low-salt diet. She is to monitor her weight daily. If her weight increases by more than 5 lb she is to contact nephrology for further recommendation. Recommend to recheck lab-BMP in 1 week to monitor progress. Recommend follow up with nephrology in 1 -2 weeks to continue her care. Recommend no further use of nonsteroidal anti- inflammatories. Future medications will need to be renally dosed. 3. Patient also had cellulitis to the lower extremities. Patient was treated with IV antibiotic therapy. Patient had positive blood cultures. Bacteremia was treated. Wound culture positive for Pseudomonas. This was likely from her cellulitis. At discharge patient will continue with Levaquin 250 mg every 48 hr for 4 more doses. Recommend to continue with wound care including applying Medihoney daily. Recommend follow up at 1-2 weeks to monitor her progress. Home health and physical therapy along with wound care will be provided at discharge. 4. Patient has underlying COPD. This has remained stable. At discharge she will continue with Dulera 2 puffs twice daily and albuterol puffs 3 times a day as needed for shortness of breath. Patient will continue with home oxygen to maintain sats above 90%. Recommend follow up with pulmonology as an outpatient to further address. 5. Patient with hypertension. Medications have been adjusted. At discharge she will continue with carvedilol 12.5 mg 1 pill twice daily and nifedipine 60 mg daily. Recommend to maintain blood pressures less than 150/80. Further adjustment can be done by her PCP. 6. Patient with diabetes mellitus type 2 insulin dependent. This has remained stable. At discharge she will continue with Levemir 10 units subcu twice daily. Recommend to maintain blood sugars less 140 fasting and less than 200 after meals. Further adjustment can be done by her PCP. 7. Patient with diabetic neuropathy. At discharge she will continue with Neurontin 100 mg 1 pill 3 times a day. 8. Patient with history of CAD and hyperlipidemia. At discharge she will continue with Plavix 75 mg daily and Lipitor 40 mg daily. 9. Patient with tobacco history. Recommend nicotine patch daily. This can be further monitored and addressed by her PCP. Tobacco cessation education provided. Diet: AHA Activity: Fall precautions Time spent managing pt's care (in minutes): 55
[2019-02-22] MEDS: levoFLOXacin 250 MG TAB PO SCH (15:13)
--- NOTE | 2019-02-22 19:01 | RAD REPORT ---
EXAM DESCRIPTION: US - UPPER EXTREMITY VENOUS UNILATE - 02/22/2019 6:43 pm CLINICAL HISTORY: evaluate edema Arm edema COMPARISON: <Comparisons> FINDINGS: Right upper extremity venous system was interrogated with Doppler technique. Normal flow, compressibility and augmentation was noted. There is no DVT present. IMPRESSION: No evidence of right upper extremity deep venous thrombosis.
[2019-02-22] MEDS: MELATONIN 5 MG TABLET PO SCH (21:00)
[2019-02-22] MEDS: TEMAZEPAM 15 MG CAP PO PRN (21:23)
[2019-02-22] MEDS: ATORVASTATIN 40 MG TAB PO SCH (21:24)
[2019-02-22] MEDS ORDERED: CALCIUM CARBONATE CHEW 500MG TAB PO PRN (22:03)
--- NOTE | 2019-02-23 01:43 | PN ---
Date of Progress Note: 02/22/2019 Chief Complaint: Anasarca, chronic kidney disease. History Of Present Illness: Patient has severe anasarca. Legs edema. Diuretic dose was adjusted. Patient has adequate urine output. Patient already responded to diuretic and lost about 18 pounds. Patient denies PND, orthopnea. Review of Systems: Denies fever, chills. Physical Examination: Lungs: Crackles at bases. Heart: S1, S2. Abdomen: Soft, benign. Extremities: Edema 2 to 3+. Laboratory Data: Blood work: Hemoglobin 10.0, WBC 5.8, platelet count 223, 000. Sodium 138, potassium 4.0, chloride 106, CO2 of 27, BUN 57, creatinine 2.21. Calcium 8.4. Impression And Plan: 1. Acute kidney injury, cardiorenal syndrome, congestive heart failure with diastolic dysfunction, acute on chronic. Creatinine level improved from 2.55 to 2.21. There is ongoing prerenal azotemia. BUN is trending down from 62 to 57. Continue diuretic and dose was adjusted. Continue to monitor fluid balance and continue low-sodium diet. 2. Hypertension. Blood pressure controlled. 3. Advanced chronic kidney disease. Avoid nephrotoxic medication. I spent 36 min including 25 min to coordinate care plan. JONNY/CELESTINE Voice ID: [id number] Report ID: [id number] MTDD
[2019-02-23] MEDS: IPRATROPIUM BROM 0.5MG/2.5ML NEB SCH ×3 (02:00→14:40)
[2019-02-23] MEDS: ALBUTEROL 2.5 MG/3 ML NEB SOL NEB SCH ×3 (02:00→14:40)
[2019-02-23] MEDS: HYDROMORPHONE HCL 1 MG/ML INJ IV PRN ×2 (03:20→10:10)
[2019-02-23 05:55] LABS: Albumin 2.3 g/dL (3.4-5.0)
[2019-02-23] MEDS: INSULIN -REGULAR HUMAN 50 UNIT/0.5 ML ML SQ SCH ×2 (07:30→11:30)
[2019-02-23] MEDS: INSULIN GLARGINE 100 UNITS/ML SQ SCH (08:39)
[2019-02-23] MEDS: carvediloL 12.5 MG TAB PO SCH (08:41)
[2019-02-23] MEDS: NICOTINE 14 MG/PAT TD SCH (08:42)
[2019-02-23] MEDS: GABAPENTIN 100 MG CAP PO SCH ×2 (08:42→15:31)
[2019-02-23] MEDS: CLOPIDOGREL 75 MG TABLET PO SCH (08:42)
[2019-02-23] MEDS: FUROSEMIDE 40 MG TABLET PO SCH ×2 (08:42→15:30)
[2019-02-23] MEDS: HEPARIN 5000 UNIT/ML 1 ML VIAL SQ SCH (08:43)
[2019-02-23] MEDS: DULERA 100/5 (MOMETASONE/FORMOTEROL) INHALER IH SCH (08:46)
[2019-02-23] MEDS: NITROGLYCERIN 0.2 MG/HR (5 MG) PATCH TD SCH (08:48)
[2019-02-23] MEDS: SOD FERRIC GLUC COMPLX/SUCROSE 125 MG in NA CHLORIDE 0.9% 100 ML IV SCH (09:59)
[2019-02-23] MEDS: GLUCERNA SHAKE 237 ML CAN PO SCH (10:09)
[2019-02-23] MEDS: ISOSORBIDE MONO SR 30 MG TAB PO SCH (10:09)
[2019-02-23] MEDS: NIFEDIPINE XL 60 MG TABLET PO SCH (10:09)
[2019-02-23 12:13] VITALS: TEMP 97.3
[2019-02-23] MEDS: METOLAZONE 5 MG TABLET PO SCH (13:00)
[2019-02-23 13:48] LABS: Vitamin D 1,25-Dihydroxy Total <8 pg/mL (18-72); Vitamin D,1,25-OH2, D2 <8 pg/mL
[2019-02-23] MEDS ORDERED: FUROSEMIDE 40 MG/4 ML VIAL IV ONE (13:52)
[2019-02-23] MEDS ORDERED: METOLAZONE 5 MG TABLET PO SCH (14:00)
[2019-02-23] MEDS ORDERED: HYDRALAZINE HCL 25 MG TABLET PO SCH (14:00)
[2019-02-23 15:29] VITALS: O2SAT 93
[2019-02-23] MEDS: MEDIHONEY 44 ML TOPICAL TUBE TOP SCH (15:29)
[2019-02-23 16:36] VITALS: BP 170/79
--- NOTE | 2019-02-23 18:11 | PN ---
Date of Progress Note: 02/23/2019 Subjective: Patient was admitted with anasarca, being diuresed very well, responding. Patient still pending placement. Physical Examination: Vital Signs: Blood pressure 180/83, pulse of 62. Patient had good urine output of 1300, negative of 300. Chest: Decreased air entry bilateral bases. Heart: S1, S2. Systolic murmur. Abdomen: Ascites. Laboratory Data: WBC 5.8, H and H 10/30.9, platelets 223. Sodium 138, potassium 4, bicarb 27, BUN 6 1, creatinine 2.3, calcium 8, phosphorus 4. Current Medications: The patient on include: 1.IV iron. 2.Plavix. 3.Calcium carbonate. 4.Isosorbide. 5.Carvedilol 12.5 b.i.d. 6.Nifedipine. 7.Lasix 80 t.i.d. 8.Metolazone 5 mg every 48 hours. 9.Zofran. 10.Breathing treatment. 11.Insulin. 12.Hydromorphone. Assessment And Plan: 1.Chronic kidney disease, stable on baseline. Still on the over volume. I am going to increase met olazone to daily. We will continue on the Lasix. I am going to give extra dose of Lasix today and w e will follow up the patient. 2.Hypertension, not controlled. We will give extra dose of Lasix today. I am going to go ahead and increase her nifedipine to 90 mg. We will follow up the patient. 3.We will add low dose of hydralazine. 4.Anasarca, secondary to cardiorenal. Continue diuresis. 5.Pseudomonas wound infection. Continue Levaquin. NATI/CELESTINE Voice ID: [id number] Report ID: [id number]
[2019-02-24] MEDS ORDERED: levoFLOXacin 750 MG TAB PO SCH (09:00)
[2019-02-24] MEDS ORDERED: NIFEDIPINE XL 90 MG TABLET PO SCH (09:00)
== END 2019-02-23 16:48 | disposition home health service (06) | DRG 291 ==
LOC: ER 15:08 → ERHOLD 18:39 → 2ND 19:54
PROVIDERS: ADMIT Internal Medicine; ATTEND Family Medicine
DX: I50.33 Acute on chronic diastolic (congestive) heart failure (principal); J96.20 Acute and chronic respiratory failure, unspecified whether with hypoxia or hypercapnia; I13.0 Hypertensive heart and chronic kidney disease with heart failure and stage 1 through stage 4 chronic kidney disease, or unspecified chronic kidney disease; N18.4 Chronic kidney disease, stage 4 (severe); I25.810 Atherosclerosis of coronary artery bypass graft(s) without angina pectoris; L03.116 Cellulitis of left lower limb; L03.115 Cellulitis of right lower limb; N17.9 Acute kidney failure, unspecified; R78.81 Bacteremia; E11.22 Type 2 diabetes mellitus with diabetic chronic kidney disease; E11.40 Type 2 diabetes mellitus with diabetic neuropathy, unspecified; E11.319 Type 2 diabetes mellitus with unspecified diabetic retinopathy without macular edema; E11.21 Type 2 diabetes mellitus with diabetic nephropathy; B96.5 Pseudomonas (aeruginosa) (mallei) (pseudomallei) as the cause of diseases classified elsewhere; J44.9 Chronic obstructive pulmonary disease, unspecified; K52.9 Noninfective gastroenteritis and colitis, unspecified; E83.42 Hypomagnesemia; M10.9 Gout, unspecified; D50.9 Iron deficiency anemia, unspecified
CPT/HCPCS: 36415; 51702; 71045; 74176; 80048; 80053; 80061; 80069; 80076; 81003; 81015; 82140; 82274; 82550; 82553; 82607; 82652; 82728; 82746; 82805; 82947; 83540; 83605; 83690; 83735; 84100; 84145; 84439; 84443; 84466; 84484; 84550; 85025; 85044; 85610; 85730; 87040; 87045; 87046; 87077; 87177; 87186; 87205; 87209; 87324; 87449; 93005; 93306; 93971; 94760; 96365; 96368; 96375; 97110; 97112; 97116; 97161; 97530; 99251; 99285; J0692; J1170; J1644; J1815; J1940; J2020; J2405; J2916; J3010; J3475; J7606

== ENCOUNTER 2019-04-05 11:47 | Emergency (ER) | payer MEDICAID ==
--- OUTSIDE RECORDS SUMMARY | 2019-04-05 11:56 | XMS REPORT ---
:1955 Author Organization [facility] Address [address] [place] [address] Care Team Providers Name Role Phone CORINA [...] (BEAKER) (test 220 mg/dL 70-110 TESTED AT [facility] [address] [address] jtpk=[id number]) [facility] [address] BASIC METABOLIC [id number] 15:47:00 Test Item Value Reference Range Comments SODIUM (BEAKER) (test 135 meq/L 136-145 tyzv=187) POTASSIUM (BEAKER) (test 4.8 meq/L 3.5-5.1 mbvk=592) CHLORIDE (BEAKER) (test 102 meq/L 98-107 fuda=956) CO2 (BEAKER) (test 25 meq/L 22-29 kier=459) BLOOD UREA NITROGEN 51 mg/dL 7-21 (BEAKER) (test ydci=509) CREATININE (BEAKER) (test 1.99 mg/dL 0.57-1.25 rkgi=366) GLUCOSE RANDOM (BEAKER) 201 mg/dL 70-105 (test bjav=073) CALCIUM (BEAKER) (test 8.8 mg/dL 8.4-10.2 nzib=851) EGFR (BEAKER) (test 25 mL/min/1.73 sq m ESTIMATED GFR IS NOT trnq=2706) ACCURATE CREATININE CLEARANCE IN PREDICTING GLOMERULAR FILTRATION RATE. ESTIMATED GFR IS NOT APPLICABLE FOR DIALYSIS PATIENTS. POCT-GLUCOSE [id number] 11:30:00 Test Item Value Reference Range Comments POC-GLUCOSE METER (BEAKER) 268 mg/dL 70-110 TESTED AT [facility] [address] (test fuxj=9115) [facility] [address] POCT-GLUCOSE [id number] 07:08:00 Test Item Value Reference Range Comments POC-GLUCOSE METER (BEAKER) 208 mg/dL 70-110 TESTED AT [facility] [address] (test uoga=5655) [facility] [address] CALCIUM, [id number] 06:47:00 Test Item Value Reference Range Comments CALCIUM IONIZED (BEAKER) (test ytfm=641) 1.11 mmol/L 1.12-1.27 PH, BLOOD (BEAKER) (test ejbk=1394) 7.40 BASIC METABOLIC [id number] 06:40:00 Test Item Value Reference Range Comments SODIUM (BEAKER) (test 134 meq/L 136-145 xnwj=566) POTASSIUM (BEAKER) (test 4.9 meq/L 3.5-5.1 ojff=866) CHLORIDE (BEAKER) (test 103 meq/L 98-107 ubqz=114) CO2 (BEAKER) (test 24 meq/L 22-29 ufyb=472) BLOOD UREA NITROGEN 53 mg/dL 7-21 (BEAKER) (test lfpp=219) CREATININE (BEAKER) (test 2.02 mg/dL 0.57-1.25 zuxv=592) GLUCOSE RANDOM (BEAKER) 186 mg/dL 70-105 (test njhu=287) CALCIUM (BEAKER) (test 9.1 mg/dL 8.4-10.2 ljgh=820) EGFR (BEAKER) (test 25 mL/min/1.73 sq m ESTIMATED GFR IS NOT dpcn=9905) ACCURATE CREATININE CLEARANCE IN PREDICTING GLOMERULAR FILTRATION RATE. ESTIMATED GFR IS NOT APPLICABLE FOR DIALYSIS PATIENTS. [id number] 06:33:00 Test Item Value Reference Range Comments PHOSPHORUS (BEAKER) (test snyi=533) 5.1 mg/dL 2.3-4.7 [id number] 06:33:00 Test Item Value Reference Range Comments MAGNESIUM (BEAKER) (test dekn=775) 2.0 mg/dL 1.6-2.6 LACTIC ACID, VENOUS, WHOLE [id number] 06:02:00 Test Item Value Reference Range Comments LACTATE BLOOD VENOUS (2) (BEAKER) (test 0.8 mmol/L 0.5-2.2 tthd=6957) Effective 08/02/2015: Units/Reference Range ChangeNew: 0.5-2.2 mmol/L Previous: 5 -20 mg/dLCBC W/PLT COUNT & AUTO [id number] 05:54:00 Test Item Value Reference Range Comments WHITE BLOOD CELL COUNT (BEAKER) (test txpb=856) 7.1 K/ L 3.5-10.5 RED BLOOD CELL COUNT (BEAKER) (test oimu=873) 3.68 M/ L 3.93-5.22 HEMOGLOBIN (BEAKER) (test yesq=147) 9.0 GM/DL 11.2-15.7 HEMATOCRIT (BEAKER) (test rmct=637) 29.6 % 34.1-44.9 MEAN CORPUSCULAR VOLUME (BEAKER) (test ponz=560) 80.4 fL 79.4-94.8 MEAN CORPUSCULAR HEMOGLOBIN (BEAKER) (test 24.5 pg 25.6-32.2 tqjl=817) MEAN CORPUSCULAR HEMOGLOBIN CONC (BEAKER) (test 30.4 GM/DL 32.2-35.5 nwew=682) RED CELL DISTRIBUTION WIDTH (BEAKER) (test 16.5 % 11.7-14.4 dity=240) PLATELET COUNT (BEAKER) (test xjoj=800) 215 K/CU MM 150-450 MEAN PLATELET VOLUME (BEAKER) (test pagd=599) 9.5 fL 9.4-12.3 NUCLEATED RED BLOOD CELLS (BEAKER) (test 0 /100 WBC 0-0 khtx=393) NEUTROPHILS RELATIVE PERCENT (BEAKER) (test 42 % borx=119) LYMPHOCYTES RELATIVE PERCENT (BEAKER) (test 46 % wqoy=308) MONOCYTES RELATIVE PERCENT (BEAKER) (test 6 % fjbp=396) EOSINOPHILS RELATIVE PERCENT (BEAKER) (test 5 % zxix=719) BASOPHILS RELATIVE PERCENT (BEAKER) (test 1 % otgh=867) NEUTROPHILS ABSOLUTE COUNT (BEAKER) (test 2.96 K/ L 1.56-6.13 otss=992) LYMPHOCYTES ABSOLUTE COUNT (BEAKER) (test 3.27 K/ L 1.18-3.74 nlzj=144) MONOCYTES ABSOLUTE COUNT (BEAKER) (test 0.41 K/ L 0.24-0.36 rsfa=443) EOSINOPHILS ABSOLUTE COUNT (BEAKER) (test 0.34 K/ L 0.04-0.36 muvj=889) BASOPHILS ABSOLUTE COUNT (BEAKER) (test 0.08 K/ L 0.01-0.08 dgov=621) IMMATURE GRANULOCYTES-RELATIVE PERCENT (BEAKER) 0 % 0-1 (test nlfq=3255) POCT-GLUCOSE [id number] 21:30:00 Test Item Value Reference Range Comments POC-GLUCOSE METER (BEAKER) 248 mg/dL 70-110 TESTED AT [address] (test xhqu=6146) [facility] [address] RAD, [id number] 21:22:00Reason for exam:->fall, tailbone painFINAL REPORT RAD, [...] MDReport Verified Date/Time: 2017 21:22:03 Reading Location: [address] Reading Room POCT- GLUCOSE [id number] 17:37:00 Test Item Value Reference Range Comments POC-GLUCOSE METER (BEAKER) 222 mg/dL 70-110 TESTED AT [address] (test oorg=9010) [facility] [address] POCT-GLUCOSE [id number] 13:55:00 Test Item Value Reference Range Comments POC-GLUCOSE METER (BEAKER) 194 mg/dL 70-110 TESTED AT [facility] [address] [facility] (test tynh=5004) [facility] [address] POCT-GLUCOSE [id number] 12:34:00 Test Item Value Reference Range Comments POC-GLUCOSE METER (BEAKER) 229 mg/dL 70-110 TESTED AT [address] (test rirr=7235) [facility] [address] POCT-GLUCOSE [id number] 08:00:00 Test Item Value Reference Range Comments POC-GLUCOSE METER (BEAKER) 159 mg/dL 70-110 TESTED AT [address] (test ppqz=7161) [facility] [address] CALCIUM, [id number] 06:00:00 Test Item Value Reference Range Comments CALCIUM IONIZED (BEAKER) (test mmuo=390) 1.05 mmol/L 1.12-1.27 PH, BLOOD (BEAKER) (test dhvs=6603) 7.45 [id number] 05:59:00 Test Item Value Reference Range Comments PHOSPHORUS (BEAKER) (test qzik=348) 4.8 mg/dL 2.3-4.7 [id number] 05:59:00 Test Item Value Reference Range Comments MAGNESIUM (BEAKER) (test bxrw=701) 2.0 mg/dL 1.6-2.6 BASIC METABOLIC [id number] 05:59:00 Test Item Value Reference Range Comments SODIUM (BEAKER) (test 134 meq/L 136-145 hbil=486) POTASSIUM (BEAKER) (test 4.4 meq/L 3.5-5.1 tpyy=433) CHLORIDE (BEAKER) (test 103 meq/L 98-107 uvhh=922) CO2 (BEAKER) (test 23 meq/L 22-29 ffgc=316) BLOOD UREA NITROGEN 49 mg/dL 7-21 (BEAKER) (test piuj=580) CREATININE (BEAKER) (test 1.69 mg/dL 0.57-1.25 cqfl=308) GLUCOSE RANDOM (BEAKER) 138 mg/dL 70-105 (test vhjo=941) CALCIUM (BEAKER) (test 8.7 mg/dL 8.4-10.2 hvbu=952) EGFR (BEAKER) (test 31 mL/min/1.73 sq m ESTIMATED GFR IS NOT klqo=2807) ACCURATE CREATININE CLEARANCE IN PREDICTING GLOMERULAR FILTRATION RATE. ESTIMATED GFR IS NOT APPLICABLE FOR DIALYSIS PATIENTS. CREATINE KINASE (CK)2017-09-04 05:59:00 Test Item Value Reference Range Comments CREATINE KINASE TOTAL (BEAKER) (test nncb=202) 45 U/L 29-200 CBC W/PLT COUNT & AUTO [id number] 05:32:00 Test Item Value Reference Range Comments WHITE BLOOD CELL COUNT (BEAKER) (test ljfv=965) 6.1 K/ L 3.5-10.5 RED BLOOD CELL COUNT (BEAKER) (test emlc=642) 3.69 M/ L 3.93-5.22 HEMOGLOBIN (BEAKER) (test luat=364) 8.8 GM/DL 11.2-15.7 HEMATOCRIT (BEAKER) (test nufl=797) 29.3 % 34.1-44.9 MEAN CORPUSCULAR VOLUME (BEAKER) (test zjrk=640) 79.4 fL 79.4-94.8 MEAN CORPUSCULAR HEMOGLOBIN (BEAKER) (test 23.8 pg 25.6-32.2 qflv=429) MEAN CORPUSCULAR HEMOGLOBIN CONC (BEAKER) (test 30.0 GM/DL 32.2-35.5 ahoc=945) RED CELL DISTRIBUTION WIDTH (BEAKER) (test 16.3 % 11.7-14.4 hrgw=294) PLATELET COUNT (BEAKER) (test krzi=222) 219 K/CU MM 150-450 MEAN PLATELET VOLUME (BEAKER) (test etqa=439) 9.4 fL 9.4-12.3 NUCLEATED RED BLOOD CELLS (BEAKER) (test 0 /100 WBC 0-0 lvgq=093) NEUTROPHILS RELATIVE PERCENT (BEAKER) (test 44 % azgc=149) LYMPHOCYTES RELATIVE PERCENT (BEAKER) (test 43 % fqve=821) MONOCYTES RELATIVE PERCENT (BEAKER) (test 6 % tnjl=824) EOSINOPHILS RELATIVE PERCENT (BEAKER) (test 6 % axay=053) BASOPHILS RELATIVE PERCENT (BEAKER) (test 1 % xqem=670) NEUTROPHILS ABSOLUTE COUNT (BEAKER) (test 2.67 K/ L 1.56-6.13 vqty=614) LYMPHOCYTES ABSOLUTE COUNT (BEAKER) (test 2.66 K/ L 1.18-3.74 eosq=106) MONOCYTES ABSOLUTE COUNT (BEAKER) (test 0.38 K/ L 0.24-0.36 tmgb=222) EOSINOPHILS ABSOLUTE COUNT (BEAKER) (test 0.37 K/ L 0.04-0.36 erwh=036) BASOPHILS ABSOLUTE COUNT (BEAKER) (test 0.05 K/ L 0.01-0.08 xwqz=940) IMMATURE GRANULOCYTES-RELATIVE PERCENT (BEAKER) 0 % 0-1 (test irdz=9679) POCT-GLUCOSE [id number] 20:36:00 Test Item Value Reference Range Comments POC-GLUCOSE METER (BEAKER) 211 mg/dL 70-110 TESTED AT [address] (test eugj=2105) [place] [address] CREATININE, RANDOM [id number] 19:55:00 Test Item Value Reference Range Comments CREATININE URINE (BEAKER) (test pouv=233) 16.1 mg/dL Reference Range: No NormalsPROTEIN, RANDOM [id number] 19:55:00 Test Item Value Reference Range Comments PROTEIN, URINE (BEAKER) (test cjtf=9179) 102 mg/dL 0-14 POCT-GLUCOSE [id number] 18:04:00 Test Item Value Reference Range Comments POC-GLUCOSE METER (BEAKER) 177 mg/dL 70-110 TESTED AT [address] (test hfne=1995) [place] [address] POCT-GLUCOSE [id number] 11:59:00 Test Item Value Reference Range Comments POC-GLUCOSE METER (BEAKER) 244 mg/dL 70-110 TESTED AT [address] (test myia=3520) [place] [address] POCT-GLUCOSE [id number] 07:53:00 Test Item Value Reference Range Comments POC-GLUCOSE METER (BEAKER) 160 mg/dL 70-110 TESTED AT [address] (test dosv=4254) [place] [address] BASIC METABOLIC [id number] 05:29:00 Test Item Value Reference Range Comments SODIUM (BEAKER) (test 136 meq/L 136-145 zyvq=628) POTASSIUM (BEAKER) (test 4.5 meq/L 3.5-5.1 bmlj=395) CHLORIDE (BEAKER) (test 105 meq/L 98-107 ctre=035) CO2 (BEAKER) (test 24 meq/L 22-29 dpum=807) BLOOD UREA NITROGEN 51 mg/dL 7-21 (BEAKER) (test ykql=579) CREATININE (BEAKER) (test 1.76 mg/dL 0.57-1.25 hqei=389) GLUCOSE RANDOM (BEAKER) 149 mg/dL 70-105 (test wisi=656) CALCIUM (BEAKER) (test 8.9 mg/dL 8.4-10.2 kqoq=498) EGFR (BEAKER) (test 29 mL/min/1.73 sq m ESTIMATED GFR IS NOT urgv=1939) ACCURATE CREATININE CLEARANCE IN PREDICTING GLOMERULAR FILTRATION RATE. ESTIMATED GFR IS NOT APPLICABLE FOR DIALYSIS PATIENTS. [id number] 05:21:00 Test Item Value Reference Range Comments MAGNESIUM (BEAKER) (test rkru=794) 2.1 mg/dL 1.6-2.6 HEPATIC FUNCTION [id number] 05:21:00 Test Item Value Reference Range Comments TOTAL PROTEIN (BEAKER) (test qqni=194) 6.8 gm/dL 6.0-8.3 ALBUMIN (BEAKER) (test wqlb=5625) 2.9 g/dL 3.5-5.0 BILIRUBIN TOTAL (BEAKER) (test vzni=008) 0.5 mg/dL 0.2-1.2 BILIRUBIN DIRECT (BEAKER) (test zqwc=708) 0.2 mg/dL 0.1-0.5 ALKALINE PHOSPHATASE (BEAKER) (test ngdi=764) 173 U/L 40-150 AST (SGOT) (BEAKER) (test itrs=103) 25 U/L 5-34 ALT (SGPT) (BEAKER) (test lwqa=883) 23 U/L 6-55 TROPONIN [id number] 05:18:00 Test Item Value Reference Range Comments TROPONIN I (BEAKER) (test wfib=035) 0.05 ng/mL 0.00-0.03 Troponin I (TnI) levels [...] and persistent tachyarrhythmia.CBC W/PLT COUNT & AUTO [id number] 04:59:00 Test Item Value Reference Range Comments WHITE BLOOD CELL COUNT (BEAKER) (test fybm=082) 6.9 K/ L 3.5-10.5 RED BLOOD CELL COUNT (BEAKER) (test gxre=914) 3.75 M/ L 3.93-5.22 HEMOGLOBIN (BEAKER) (test xaov=341) 8.9 GM/DL 11.2-15.7 HEMATOCRIT (BEAKER) (test pdwo=107) 29.7 % 34.1-44.9 MEAN CORPUSCULAR VOLUME (BEAKER) (test vprw=157) 79.2 fL 79.4-94.8 MEAN CORPUSCULAR HEMOGLOBIN (BEAKER) (test 23.7 pg 25.6-32.2 aegi=802) MEAN CORPUSCULAR HEMOGLOBIN CONC (BEAKER) (test 30.0 GM/DL 32.2-35.5 hvwz=751) RED CELL DISTRIBUTION WIDTH (BEAKER) (test 16.2 % 11.7-14.4 wvui=940) PLATELET COUNT (BEAKER) (test oflk=305) 240 K/CU MM 150-450 MEAN PLATELET VOLUME (BEAKER) (test khum=505) 9.6 fL 9.4-12.3 NUCLEATED RED BLOOD CELLS (BEAKER) (test 0 /100 WBC 0-0 wpvi=043) NEUTROPHILS RELATIVE PERCENT (BEAKER) (test 48 % laah=048) LYMPHOCYTES RELATIVE PERCENT (BEAKER) (test 40 % wvmh=978) MONOCYTES RELATIVE PERCENT (BEAKER) (test 6 % llqy=802) EOSINOPHILS RELATIVE PERCENT (BEAKER) (test 5 % fmkr=005) BASOPHILS RELATIVE PERCENT (BEAKER) (test 1 % nxre=771) NEUTROPHILS ABSOLUTE COUNT (BEAKER) (test 3.32 K/ L 1.56-6.13 sckm=113) LYMPHOCYTES ABSOLUTE COUNT (BEAKER) (test 2.76 K/ L 1.18-3.74 skee=459) MONOCYTES ABSOLUTE COUNT (BEAKER) (test 0.39 K/ L 0.24-0.36 vfsk=222) EOSINOPHILS ABSOLUTE COUNT (BEAKER) (test 0.36 K/ L 0.04-0.36 nmjh=496) BASOPHILS ABSOLUTE COUNT (BEAKER) (test 0.06 K/ L 0.01-0.08 bsie=488) IMMATURE GRANULOCYTES-RELATIVE PERCENT (BEAKER) 0 % 0-1 (test nefi=4805) TROPONIN [id number] 23:40:00 Test Item Value Reference Range Comments TROPONIN I (BEAKER) (test hebz=029) 0.04 ng/mL 0.00-0.03 Troponin I (TnI) levels [...] acidosis, acute neurological disease, and persistent tachyarrhythmia.POCT-GLUCOSE [id number] 22:51:00 Test Item Value Reference Range Comments POC-GLUCOSE METER (BEAKER) 214 mg/dL 70-110 TESTED AT [address] (test eemv=3963) [facility] [address] RAD, CHEST, 1 VIEW, NON [id number] 21:42:00Reason for exam:->CHEST PAINShould this be performed at the bedside?->YesFINAL REPORT RAD, CHEST, 1 VIEW, NON DEPT INDICATION: CHEST PAIN COMPARISON: Chest x -ray 4 weeks ago TECHNIQUE: Single frontal view of the chest. IMPRESSION: Cardiomegaly.Mild pulmonary interstitial edema with a small right-sided effusion.No acute osseous abnormality. Signed: Dario Abraham MDReport Verified Date/Time: 09/02/2017 21:42:11 Reading Location: [address] Transitional Reading Room CREATININE, RANDOM [id number] 21:10:00 Test Item Value Reference Range Comments CREATININE URINE (BEAKER) (test cyzi=211) 35.5 mg/dL Reference Range: No NormalsSODIUM, RANDOM [id number] 21:10:00 Test Item Value Reference Range Comments SODIUM URINE (BEAKER) (test lbeu=540) 80 meq/L Reference Range: No NormalsURINALYSIS W/ [id number] 20:59:00 Test Item Value Reference Range Comments COLOR (BEAKER) (test esqa=170) Light Yellow CLARITY (BEAKER) (test ooyo=947) Clear SPECIFIC GRAVITY UA (BEAKER) (test hvyk=911) 1.008 1.001-1.035 PH UA (BEAKER) (test zkqo=127) 6.5 5.0-8.0 PROTEIN UA (BEAKER) (test isna=732) 200 mg/dL Negative GLUCOSE UA (BEAKER) (test jeti=188) 70 mg/dL Negative KETONES UA (BEAKER) (test mbiz=459) Negative Negative BILIRUBIN UA (BEAKER) (test vhgu=533) Negative Negative BLOOD UA (BEAKER) (test algc=037) Negative Negative NITRITE UA (BEAKER) (test jpjs=161) Negative Negative LEUKOCYTE ESTERASE UA (BEAKER) (test vfpm=903) Negative Negative UROBILINOGEN UA (BEAKER) (test bjub=176) 0.2 mg/dL 0.2-1.0 RBC UA (BEAKER) (test sohr=118) < /HPF WBC UA (BEAKER) (test zgrf=487) 2 /HPF BACTERIA (BEAKER) (test whry=044) Occasional MUCUS (BEAKER) (test qkfr=1984) Rare SQUAMOUS EPITHELIAL (BEAKER) (test ebhr=662) 2 /HPF HYALINE CASTS (BEAKER) (test trnx=935) 7 /LPF SOURCE(BEAKER) (test hgsp=2620) BASIC METABOLIC [id number] 16:49:00 Test Item Value Reference Range Comments SODIUM (BEAKER) (test 134 meq/L 136-145 unby=431) POTASSIUM (BEAKER) (test 4.8 meq/L 3.5-5.1 eoqe=591) CHLORIDE (BEAKER) (test 101 meq/L 98-107 utsb=477) CO2 (BEAKER) (test 26 meq/L 22-29 qulx=425) BLOOD UREA NITROGEN 53 mg/dL 7-21 (BEAKER) (test auyy=791) CREATININE (BEAKER) (test 2.04 mg/dL 0.57-1.25 dkxh=656) GLUCOSE RANDOM (BEAKER) 267 mg/dL 70-105 (test kjvp=596) CALCIUM (BEAKER) (test 9.1 mg/dL 8.4-10.2 czxd=806) EGFR (BEAKER) (test 25 mL/min/1.73 sq m ESTIMATED GFR IS NOT erng=6680) ACCURATE CREATININE CLEARANCE IN PREDICTING GLOMERULAR FILTRATION RATE. ESTIMATED GFR IS NOT APPLICABLE FOR DIALYSIS PATIENTS. [id number] 16:38:00 Test Item Value Reference Range Comments PROTIME (BEAKER) (test mnhe=751) 14.4 seconds 11.7-14.7 INR (BEAKER) (test qitf=127) 1.1 <=5.9 PARTIAL THROMBOPLASTIN TIME (BEAKER) (test 31.0 seconds 22.5-36.0 maup=025) RECOMMENDED COUMADIN/WARFARIN INR THERAPY RANGESSTANDARD DOSE: 2.0 - 3.0 Includes: PROPHYLAXIS forvenous thrombosis, systemic embolization; TREATMENT for venous thrombosis and/or pulmonary embolus.HIGH RISK: Target INR is 2.5-3.5 for patients with mechanical heart valves.CBC W/PLT COUNT & AUTO [id number] 16:26:00 Test Item Value Reference Range Comments WHITE BLOOD CELL COUNT (BEAKER) (test ltby=571) 6.3 K/ L 3.5-10.5 RED BLOOD CELL COUNT (BEAKER) (test yski=278) 4.22 M/ L 3.93-5.22 HEMOGLOBIN (BEAKER) (test oppn=723) 10.1 GM/DL 11.2-15.7 HEMATOCRIT (BEAKER) (test cdtf=670) 33.4 % 34.1-44.9 MEAN CORPUSCULAR VOLUME (BEAKER) (test xoaa=816) 79.1 fL 79.4-94.8 MEAN CORPUSCULAR HEMOGLOBIN (BEAKER) (test 23.9 pg 25.6-32.2 pyaz=904) MEAN CORPUSCULAR HEMOGLOBIN CONC (BEAKER) (test 30.2 GM/DL 32.2-35.5 pces=830) RED CELL DISTRIBUTION WIDTH (BEAKER) (test 16.1 % 11.7-14.4 wyff=558) PLATELET COUNT (BEAKER) (test oxhb=585) 252 K/CU MM 150-450 MEAN PLATELET VOLUME (BEAKER) (test ryjx=097) 9.5 fL 9.4-12.3 NUCLEATED RED BLOOD CELLS (BEAKER) (test 0 /100 WBC 0-0 prko=183) NEUTROPHILS RELATIVE PERCENT (BEAKER) (test 49 % ivad=326) LYMPHOCYTES RELATIVE PERCENT (BEAKER) (test 38 % njxu=107) MONOCYTES RELATIVE PERCENT (BEAKER) (test 6 % gwom=324) EOSINOPHILS RELATIVE PERCENT (BEAKER) (test 5 % sciw=201) BASOPHILS RELATIVE PERCENT (BEAKER) (test 1 % qtdp=493) NEUTROPHILS ABSOLUTE COUNT (BEAKER) (test 3.08 K/ L 1.56-6.13 iujh=181) LYMPHOCYTES ABSOLUTE COUNT (BEAKER) (test 2.42 K/ L 1.18-3.74 hylm=518) MONOCYTES ABSOLUTE COUNT (BEAKER) (test 0.40 K/ L 0.24-0.36 fybk=791) EOSINOPHILS ABSOLUTE COUNT (BEAKER) (test 0.33 K/ L 0.04-0.36 yyjc=389) BASOPHILS ABSOLUTE COUNT (BEAKER) (test 0.07 K/ L 0.01-0.08 edjr=016) IMMATURE GRANULOCYTES-RELATIVE PERCENT (BEAKER) 0 % 0-1 (test baqq=2083) B-TYPE NATRIURETIC FACTOR (BNP)2017-09-02 13:47:00 Test Item Value Reference Range Comments B-TYPE NATRIURETIC PEPTIDE (BEAKER) (test 1942 pg/mL 0-100 oopx=030) BASIC METABOLIC [id number] 13:43:00 Test Item Value Reference Range Comments SODIUM (BEAKER) (test 134 meq/L 136-145 nxkp=521) POTASSIUM (BEAKER) (test 5.2 meq/L 3.5-5.1 gqow=305) CHLORIDE (BEAKER) (test 101 meq/L 98-107 xxlf=191) CO2 (BEAKER) (test 25 meq/L 22-29 wtfx=887) BLOOD UREA NITROGEN 55 mg/dL 7-21 (BEAKER) (test rhsz=431) CREATININE (BEAKER) (test 2.09 mg/dL 0.57-1.25 grae=876) GLUCOSE RANDOM (BEAKER) 317 mg/dL 70-105 (test ncbs=473) CALCIUM (BEAKER) (test 9.2 mg/dL 8.4-10.2 bcqq=335) EGFR (BEAKER) (test 24 mL/min/1.73 sq m ESTIMATED GFR IS NOT ztkx=4444) ACCURATE CREATININE CLEARANCE IN PREDICTING GLOMERULAR FILTRATION RATE. ESTIMATED GFR IS NOT APPLICABLE FOR DIALYSIS PATIENTS. POCT-GLUCOSE [id number] 12:44:00 Test Item Value Reference Range Comments POC-GLUCOSE METER (BEAKER) 283 mg/dL 70-110 TESTED AT [facility] [address] (test vcgi=5640) [facility] [address] CALCIUM, [id number] 07:03:00 Test Item Value Reference Range Comments CALCIUM IONIZED (BEAKER) (test tluf=497) 1.02 mmol/L 1.12-1.27 PH, BLOOD (BEAKER) (test kohl=2732) 7.43 [id number] 05:28:00 Test Item Value Reference Range Comments PHOSPHORUS (BEAKER) (test sdxm=697) 3.3 mg/dL 2.3-4.7 [id number] 05:28:00 Test Item Value Reference Range Comments MAGNESIUM (BEAKER) (test wtqc=392) 1.5 mg/dL 1.6-2.6 BASIC METABOLIC [id number] 05:28:00 Test Item Value Reference Range Comments SODIUM (BEAKER) (test 135 meq/L 136-145 ryxb=147) POTASSIUM (BEAKER) (test 3.9 meq/L 3.5-5.1 jpac=420) CHLORIDE (BEAKER) (test 101 meq/L 98-107 tkum=250) CO2 (BEAKER) (test 27 meq/L 22-29 bgxs=836) BLOOD UREA NITROGEN 35 mg/dL 7-21 (BEAKER) (test fpgo=228) CREATININE (BEAKER) (test 1.37 mg/dL 0.57-1.25 vwhr=860) GLUCOSE RANDOM (BEAKER) 145 mg/dL 70-105 (test pzfk=184) CALCIUM (BEAKER) (test 8.3 mg/dL 8.4-10.2 dxmq=053) EGFR (BEAKER) (test 39 mL/min/1.73 sq m ESTIMATED GFR IS NOT igcs=3039) ACCURATE CREATININE CLEARANCE IN PREDICTING GLOMERULAR FILTRATION RATE. ESTIMATED GFR IS NOT APPLICABLE FOR DIALYSIS PATIENTS. CBC W/PLT COUNT & AUTO [id number] 05:06:00 Test Item Value Reference Range Comments WHITE BLOOD CELL COUNT (BEAKER) (test lenz=760) 9.3 K/ L 3.5-10.5 RED BLOOD CELL COUNT (BEAKER) (test bkfz=007) 3.64 M/ L 3.93-5.22 HEMOGLOBIN (BEAKER) (test nzfz=742) 8.7 GM/DL 11.2-15.7 HEMATOCRIT (BEAKER) (test ppuu=729) 28.5 % 34.1-44.9 MEAN CORPUSCULAR VOLUME (BEAKER) (test yzxo=876) 78.3 fL 79.4-94.8 MEAN CORPUSCULAR HEMOGLOBIN (BEAKER) (test 23.9 pg 25.6-32.2 zndq=013) MEAN CORPUSCULAR HEMOGLOBIN CONC (BEAKER) (test 30.5 GM/DL 32.2-35.5 yntp=617) RED CELL DISTRIBUTION WIDTH (BEAKER) (test 14.6 % 11.7-14.4 wezm=410) PLATELET COUNT (BEAKER) (test yqej=867) 336 K/CU MM 150-450 MEAN PLATELET VOLUME (BEAKER) (test laeq=447) 9.3 fL 9.4-12.3 NUCLEATED RED BLOOD CELLS (BEAKER) (test 0 /100 WBC 0-0 ldvj=257) NEUTROPHILS RELATIVE PERCENT (BEAKER) (test 50 % wewn=862) LYMPHOCYTES RELATIVE PERCENT (BEAKER) (test 40 % tevv=919) MONOCYTES RELATIVE PERCENT (BEAKER) (test 6 % zdsj=570) EOSINOPHILS RELATIVE PERCENT (BEAKER) (test 3 % pzcj=632) BASOPHILS RELATIVE PERCENT (BEAKER) (test 1 % vsxn=571) NEUTROPHILS ABSOLUTE COUNT (BEAKER) (test 4.66 K/ L 1.56-6.13 nhqb=081) LYMPHOCYTES ABSOLUTE COUNT (BEAKER) (test 3.71 K/ L 1.18-3.74 nlms=358) MONOCYTES ABSOLUTE COUNT (BEAKER) (test 0.53 K/ L 0.24-0.36 elty=461) EOSINOPHILS ABSOLUTE COUNT (BEAKER) (test 0.31 K/ L 0.04-0.36 lvmu=208) BASOPHILS ABSOLUTE COUNT (BEAKER) (test 0.07 K/ L 0.01-0.08 ndnu=478) IMMATURE GRANULOCYTES-RELATIVE PERCENT (BEAKER) 1 % 0-1 (test ibil=8792) POCT-GLUCOSE [id number] 21:08:00 Test Item Value Reference Range Comments POC-GLUCOSE METER (BEAKER) 202 mg/dL 70-110 TESTED AT [address] (test tbzh=0413) [facility] [address] POCT-GLUCOSE [id number] 16:50:00 Test Item Value Reference Range Comments POC-GLUCOSE METER (BEAKER) 287 mg/dL 70-110 TESTED AT [address] (test gxdh=5955) [facility] [address] POCT-GLUCOSE [id number] 12:21:00 Test Item Value Reference Range Comments POC-GLUCOSE METER (BEAKER) 213 mg/dL 70-110 TESTED AT [address] (test abhk=5685) [facility] [address] POCT-GLUCOSE [id number] 08:28:00 Test Item Value Reference Range Comments POC-GLUCOSE METER (BEAKER) 178 mg/dL 70-110 TESTED AT [address] (test uqia=7159) [facility] [address] CALCIUM, [id number] 07:06:00 Test Item Value Reference Range Comments CALCIUM IONIZED (BEAKER) (test ctew=944) 0.99 mmol/L 1.12-1.27 PH, BLOOD (BEAKER) (test mlef=1365) 7.42 [id number] 05:37:00 Test Item Value Reference Range Comments PHOSPHORUS (BEAKER) (test eifb=528) 3.5 mg/dL 2.3-4.7 [id number] 05:37:00 Test Item Value Reference Range Comments MAGNESIUM (BEAKER) (test atpj=121) 1.6 mg/dL 1.6-2.6 BASIC METABOLIC [id number] 05:37:00 Test Item Value Reference Range Comments SODIUM (BEAKER) (test 133 meq/L 136-145 vktt=578) POTASSIUM (BEAKER) (test 3.8 meq/L 3.5-5.1 bhwk=384) CHLORIDE (BEAKER) (test 101 meq/L 98-107 nsbe=128) CO2 (BEAKER) (test 25 meq/L 22-29 xsza=906) BLOOD UREA NITROGEN 39 mg/dL 7-21 (BEAKER) (test mzsq=380) CREATININE (BEAKER) (test 1.42 mg/dL 0.57-1.25 btoh=207) GLUCOSE RANDOM (BEAKER) 200 mg/dL 70-105 (test bwcr=566) CALCIUM (BEAKER) (test 8.0 mg/dL 8.4-10.2 cykr=606) EGFR (BEAKER) (test 37 mL/min/1.73 sq m ESTIMATED GFR IS NOT yyfa=9732) ACCURATE CREATININE CLEARANCE IN PREDICTING GLOMERULAR FILTRATION RATE. ESTIMATED GFR IS NOT APPLICABLE FOR DIALYSIS PATIENTS. CBC W/PLT COUNT & AUTO [id number] 05:07:00 Test Item Value Reference Range Comments WHITE BLOOD CELL COUNT (BEAKER) (test werr=342) 9.2 K/ L 3.5-10.5 RED BLOOD CELL COUNT (BEAKER) (test ocxs=672) 3.69 M/ L 3.93-5.22 HEMOGLOBIN (BEAKER) (test pmio=836) 8.8 GM/DL 11.2-15.7 HEMATOCRIT (BEAKER) (test rixx=526) 28.8 % 34.1-44.9 MEAN CORPUSCULAR VOLUME (BEAKER) (test oflx=860) 78.0 fL 79.4-94.8 MEAN CORPUSCULAR HEMOGLOBIN (BEAKER) (test 23.8 pg 25.6-32.2 ulny=734) MEAN CORPUSCULAR HEMOGLOBIN CONC (BEAKER) (test 30.6 GM/DL 32.2-35.5 dxyx=723) RED CELL DISTRIBUTION WIDTH (BEAKER) (test 14.6 % 11.7-14.4 wxkk=350) PLATELET COUNT (BEAKER) (test vczk=143) 308 K/CU MM 150-450 MEAN PLATELET VOLUME (BEAKER) (test jthg=515) 9.3 fL 9.4-12.3 NUCLEATED RED BLOOD CELLS (BEAKER) (test 0 /100 WBC 0-0 jzft=317) NEUTROPHILS RELATIVE PERCENT (BEAKER) (test 61 % mcbl=147) LYMPHOCYTES RELATIVE PERCENT (BEAKER) (test 30 % ypmg=247) MONOCYTES RELATIVE PERCENT (BEAKER) (test 5 % rvdu=984) EOSINOPHILS RELATIVE PERCENT (BEAKER) (test 3 % ppxj=039) BASOPHILS RELATIVE PERCENT (BEAKER) (test 0 % qlhm=690) NEUTROPHILS ABSOLUTE COUNT (BEAKER) (test 5.67 K/ L 1.56-6.13 yuml=103) LYMPHOCYTES ABSOLUTE COUNT (BEAKER) (test 2.72 K/ L 1.18-3.74 fpvk=002) MONOCYTES ABSOLUTE COUNT (BEAKER) (test 0.48 K/ L 0.24-0.36 ykqk=429) EOSINOPHILS ABSOLUTE COUNT (BEAKER) (test 0.26 K/ L 0.04-0.36 xfjr=934) BASOPHILS ABSOLUTE COUNT (BEAKER) (test 0.04 K/ L 0.01-0.08 dekf=293) IMMATURE GRANULOCYTES-RELATIVE PERCENT (BEAKER) 1 % 0-1 (test myau=4853) POCT-GLUCOSE [id number] 21:24:00 Test Item Value Reference Range Comments POC-GLUCOSE METER (BEAKER) 255 mg/dL 70-110 TESTED AT [address] (test jwkw=7635) [place] [id number] POCT-GLUCOSE [id number] 17:11:00 Test Item Value Reference Range Comments POC-GLUCOSE METER (BEAKER) 244 mg/dL 70-110 TESTED AT [address] (test eiex=4304) [facility] [address] POCT-GLUCOSE [id number] 11:54:00 Test Item Value Reference Range Comments POC-GLUCOSE METER (BEAKER) 209 mg/dL 70-110 TESTED AT [address] (test dknh=8285) [place] [id number] POCT-GLUCOSE [id number] 08:15:00 Test Item Value Reference Range Comments POC-GLUCOSE METER (BEAKER) 132 mg/dL 70-110 TESTED AT [address] (test xvxr=5750) [facility] [address] RAD, CHEST, 1 VIEW, NON [id number] 07:44:00Reason for exam:->edemaShould this be performed at the bedside?->YesFINAL REPORT Chest one view AP 08/07/2017 7:44 AM CLINICAL INDICATION: edema COMPARISON: 2017 IMPRESSION: Cardiomediastinal contours are stable. There is mild pulmonary edema,asymmetric to the right. There are trace bilateral pleural effusions, with bibasilar linear atelectasis. Sternotomy wires remain midline. Signed: Eder Cespedes Verified Date/Time: 08/07/2017 07:44:22 Reading Location: [facility] Radiology Reading Room [id number] 05:30:00 Test Item Value Reference Range Comments FERRITIN (BEAKER) (test vbff=152) 87 ng/mL 5-275 CBC W/PLT COUNT & AUTO [id number] 05:21:00 Test Item Value Reference Range Comments WHITE BLOOD CELL COUNT (BEAKER) (test pzpy=538) 12.4 K/ L 3.5-10.5 RED BLOOD CELL COUNT (BEAKER) (test bsek=860) 3.78 M/ L 3.93-5.22 HEMOGLOBIN (BEAKER) (test lglo=518) 9.0 GM/DL 11.2-15.7 HEMATOCRIT (BEAKER) (test uuwr=943) 29.3 % 34.1-44.9 MEAN CORPUSCULAR VOLUME (BEAKER) (test gbhw=125) 77.5 fL 79.4-94.8 MEAN CORPUSCULAR HEMOGLOBIN (BEAKER) (test 23.8 pg 25.6-32.2 ozbl=573) MEAN CORPUSCULAR HEMOGLOBIN CONC (BEAKER) (test 30.7 GM/DL 32.2-35.5 ikqw=465) RED CELL DISTRIBUTION WIDTH (BEAKER) (test 14.7 % 11.7-14.4 anpy=835) PLATELET COUNT (BEAKER) (test iugp=021) 316 K/CU MM 150-450 MEAN PLATELET VOLUME (BEAKER) (test wawp=765) 9.6 fL 9.4-12.3 NUCLEATED RED BLOOD CELLS (BEAKER) (test 0 /100 WBC 0-0 dmdk=290) NEUTROPHILS RELATIVE PERCENT (BEAKER) (test 72 % gdit=359) LYMPHOCYTES RELATIVE PERCENT (BEAKER) (test 20 % dtsk=210) MONOCYTES RELATIVE PERCENT (BEAKER) (test 5 % cuiy=595) EOSINOPHILS RELATIVE PERCENT (BEAKER) (test 2 % iglx=332) BASOPHILS RELATIVE PERCENT (BEAKER) (test 1 % ytov=503) NEUTROPHILS ABSOLUTE COUNT (BEAKER) (test 8.93 K/ L 1.56-6.13 tkwt=729) LYMPHOCYTES ABSOLUTE COUNT (BEAKER) (test 2.51 K/ L 1.18-3.74 wvbv=113) MONOCYTES ABSOLUTE COUNT (BEAKER) (test 0.58 K/ L 0.24-0.36 xzoi=765) EOSINOPHILS ABSOLUTE COUNT (BEAKER) (test 0.23 K/ L 0.04-0.36 lyoj=963) BASOPHILS ABSOLUTE COUNT (BEAKER) (test 0.07 K/ L 0.01-0.08 djfr=281) IMMATURE GRANULOCYTES-RELATIVE PERCENT (BEAKER) 1 % 0-1 (test iqfc=7580) IRON, TIBC, % SAT. (WITHOUT FERRITIN)2017-08-07 05:16:00 Test Item Value Reference Range Comments IRON (BEAKER) (test sljt=002) 21 ug/dL 40-160 TOTAL IRON BINDING CAPACITY (BEAKER) (test 184 ug/dL 250-450 khgu=032) IRON % SATURATION (2) (BEAKER) (test tyya=3902) 11 % 20-55 [id number] 05:11:00 Test Item Value Reference Range Comments PHOSPHORUS (BEAKER) (test qruv=896) 3.6 mg/dL 2.3-4.7 [id number] 05:11:00 Test Item Value Reference Range Comments MAGNESIUM (BEAKER) (test ficg=769) 2.0 mg/dL 1.6-2.6 BASIC METABOLIC [id number] 05:11:00 Test Item Value Reference Range Comments SODIUM (BEAKER) (test 134 meq/L 136-145 cecf=211) POTASSIUM (BEAKER) (test 3.9 meq/L 3.5-5.1 owdz=463) CHLORIDE (BEAKER) (test 102 meq/L 98-107 iazd=903) CO2 (BEAKER) (test 23 meq/L 22-29 vzqt=741) BLOOD UREA NITROGEN 41 mg/dL 7-21 (BEAKER) (test iwib=604) CREATININE (BEAKER) (test 1.63 mg/dL 0.57-1.25 kvnq=714) GLUCOSE RANDOM (BEAKER) 124 mg/dL 70-105 (test gfnh=314) CALCIUM (BEAKER) (test 8.3 mg/dL 8.4-10.2 qjqo=022) EGFR (BEAKER) (test 32 mL/min/1.73 sq m ESTIMATED GFR IS NOT hede=6482) ACCURATE CREATININE CLEARANCE IN PREDICTING GLOMERULAR FILTRATION RATE. ESTIMATED GFR IS NOT APPLICABLE FOR DIALYSIS PATIENTS. B-TYPE NATRIURETIC FACTOR (BNP)2017-08-07 05:05:00 Test Item Value Reference Range Comments B-TYPE NATRIURETIC PEPTIDE (BEAKER) (test 1561 pg/mL 0-100 awsb=790) CALCIUM, [id number] 04:58:00 Test Item Value Reference Range Comments CALCIUM IONIZED (BEAKER) (test kpav=811) 1.04 mmol/L 1.12-1.27 PH, BLOOD (BEAKER) (test pnvr=5531) 7.41 RETICULOCYTE [id number] 04:51:00 Test Item Value Reference Range Comments RETICULOCYTE COUNT PCT (BEAKER) (test lpnp=153) 1.2 % 0.5-1.7 POCT-GLUCOSE [id number] 20:49:00 Test Item Value Reference Range Comments POC-GLUCOSE METER (BEAKER) 202 mg/dL 70-110 TESTED AT [facility] [address] (test bogp=3327) [facility] [address] CREATININE, RANDOM [id number] 18:38:00 Test Item Value Reference Range Comments CREATININE URINE (BEAKER) (test uuyv=945) 56.3 mg/dL Reference Range: No NormalsPROTEIN, RANDOM [id number] 18:38:00 Test Item Value Reference Range Comments PROTEIN, URINE (BEAKER) (test eapx=0872) 189 mg/dL 0-14 URINALYSIS W/ [id number] 18:34:00 Test Item Value Reference Range Comments COLOR (BEAKER) (test qmxc=578) Light Yellow CLARITY (BEAKER) (test jqeo=595) Hazy SPECIFIC GRAVITY UA (BEAKER) (test lxxo=019) 1.008 1.001-1.035 PH UA (BEAKER) (test zpoz=055) 5.5 5.0-8.0 PROTEIN UA (BEAKER) (test rtlb=230) 100 mg/dL Negative GLUCOSE UA (BEAKER) (test ydyw=290) 30 mg/dL Negative KETONES UA (BEAKER) (test jnwu=080) Negative Negative BILIRUBIN UA (BEAKER) (test efxm=438) Negative Negative BLOOD UA (BEAKER) (test uoox=343) Negative Negative NITRITE UA (BEAKER) (test tjfp=427) Negative Negative LEUKOCYTE ESTERASE UA (BEAKER) (test xapj=492) Negative Negative UROBILINOGEN UA (BEAKER) (test aqam=156) 0.2 mg/dL 0.2-1.0 RBC UA (BEAKER) (test ipsn=818) < /HPF WBC UA (BEAKER) (test qngn=024) 2 /HPF BACTERIA (BEAKER) (test zept=505) Rare MUCUS (BEAKER) (test wrby=4548) Rare SQUAMOUS EPITHELIAL (BEAKER) (test nyfd=542) 8 /HPF SOURCE(BEAKER) (test wbjr=5970) Urine, Voided POCT-GLUCOSE [id number] 17:38:00 Test Item Value Reference Range Comments POC-GLUCOSE METER (BEAKER) 143 mg/dL 70-110 TESTED AT [address] (test xbcj=9162) [place] [address] POCT-GLUCOSE [id number] 12:30:00 Test Item Value Reference Range Comments POC-GLUCOSE METER (BEAKER) 218 mg/dL 70-110 TESTED AT [address] (test gcdc=7803) [place] [address] POCT-GLUCOSE [id number] 08:00:00 Test Item Value Reference Range Comments POC-GLUCOSE METER (BEAKER) 134 mg/dL 70-110 TESTED AT [address] (test ehdl=4307) [place] [address] CBC W/PLT COUNT & AUTO [id number] 04:23:00 Test Item Value Reference Range Comments WHITE BLOOD CELL COUNT (BEAKER) (test savx=447) 13.9 K/ L 3.5-10.5 RED BLOOD CELL COUNT (BEAKER) (test lpig=810) 3.23 M/ L 3.93-5.22 HEMOGLOBIN (BEAKER) (test mhyg=132) 7.6 GM/DL 11.2-15.7 HEMATOCRIT (BEAKER) (test ymxf=494) 25.3 % 34.1-44.9 MEAN CORPUSCULAR VOLUME (BEAKER) (test iabo=591) 78.3 fL 79.4-94.8 MEAN CORPUSCULAR HEMOGLOBIN (BEAKER) (test 23.5 pg 25.6-32.2 kflv=755) MEAN CORPUSCULAR HEMOGLOBIN CONC (BEAKER) (test 30.0 GM/DL 32.2-35.5 bqnx=634) RED CELL DISTRIBUTION WIDTH (BEAKER) (test 14.8 % 11.7-14.4 rbzk=363) PLATELET COUNT (BEAKER) (test jixl=503) 284 K/CU MM 150-450 MEAN PLATELET VOLUME (BEAKER) (test zict=483) 9.8 fL 9.4-12.3 NUCLEATED RED BLOOD CELLS (BEAKER) (test 0 /100 WBC 0-0 ixcu=541) NEUTROPHILS RELATIVE PERCENT (BEAKER) (test 77 % zjis=655) LYMPHOCYTES RELATIVE PERCENT (BEAKER) (test 16 % lrwy=233) MONOCYTES RELATIVE PERCENT (BEAKER) (test 4 % vrpp=059) EOSINOPHILS RELATIVE PERCENT (BEAKER) (test 2 % edfg=014) BASOPHILS RELATIVE PERCENT (BEAKER) (test 1 % azki=353) NEUTROPHILS ABSOLUTE COUNT (BEAKER) (test 10.70 K/ L 1.56-6.13 cofh=706) LYMPHOCYTES ABSOLUTE COUNT (BEAKER) (test 2.17 K/ L 1.18-3.74 adid=740) MONOCYTES ABSOLUTE COUNT (BEAKER) (test 0.57 K/ L 0.24-0.36 ijwm=666) EOSINOPHILS ABSOLUTE COUNT (BEAKER) (test 0.30 K/ L 0.04-0.36 yikn=732) BASOPHILS ABSOLUTE COUNT (BEAKER) (test 0.08 K/ L 0.01-0.08 iqap=798) IMMATURE GRANULOCYTES-RELATIVE PERCENT (BEAKER) 1 % 0-1 (test kleb=1374) BASIC METABOLIC [id number] 04:13:00 Test Item Value Reference Range Comments SODIUM (BEAKER) (test 134 meq/L 136-145 rxum=928) POTASSIUM (BEAKER) (test 4.6 meq/L 3.5-5.1 ytbf=432) CHLORIDE (BEAKER) (test 103 meq/L 98-107 jjse=243) CO2 (BEAKER) (test 23 meq/L 22-29 oyno=725) BLOOD UREA NITROGEN 43 mg/dL 7-21 (BEAKER) (test ctfk=767) CREATININE (BEAKER) (test 1.79 mg/dL 0.57-1.25 urzj=724) GLUCOSE RANDOM (BEAKER) 123 mg/dL 70-105 (test qbme=368) CALCIUM (BEAKER) (test 8.1 mg/dL 8.4-10.2 celn=715) EGFR (BEAKER) (test 29 mL/min/1.73 sq m ESTIMATED GFR IS NOT daoo=5405) ACCURATE CREATININE CLEARANCE IN PREDICTING GLOMERULAR FILTRATION RATE. ESTIMATED GFR IS NOT APPLICABLE FOR DIALYSIS PATIENTS. [id number] 04:10:00 Test Item Value Reference Range Comments PHOSPHORUS (BEAKER) (test qxjv=643) 4.9 mg/dL 2.3-4.7 [id number] 04:10:00 Test Item Value Reference Range Comments MAGNESIUM (BEAKER) (test qupo=791) 1.4 mg/dL 1.6-2.6 [id number] 04:08:00 Test Item Value Reference Range Comments FIBRINOGEN LEVEL (BEAKER) (test exae=777) 548 mg/dl 225-434 [id number] 04:08:00 Test Item Value Reference Range Comments PARTIAL THROMBOPLASTIN TIME (BEAKER) (test 37.7 seconds 22.5-36.0 delb=145) PROTHROMBIN [id number] 04:07:00 Test Item Value Reference Range Comments PROTIME (BEAKER) (test goks=417) 16.2 seconds 11.7-14.7 INR (BEAKER) (test rbms=253) 1.3 <=5.9 RECOMMENDED COUMADIN/WARFARIN INR THERAPY RANGESSTANDARD DOSE: 2.0 - 3.0 Includes: PROPHYLAXIS forvenous thrombosis, systemic embolization; TREATMENT for venous thrombosis and/or pulmonary embolus.HIGH RISK: Target INR is 2.5-3.5 for patients with mechanical heart valves.[id number] 16:59:00 Test Item Value Reference Range Comments ACTIVATED CLOTTING TIME 219 sec TESTED AT [facility] [address] (BEAKER) (test ndhv=007) [facility] [address] BASIC METABOLIC [id number] 14:25:00 Test Item Value Reference Range Comments SODIUM (BEAKER) (test 134 meq/L 136-145 llvo=119) POTASSIUM (BEAKER) (test 4.4 meq/L 3.5-5.1 gnhu=300) CHLORIDE (BEAKER) (test 103 meq/L 98-107 ybke=835) CO2 (BEAKER) (test 22 meq/L 22-29 kwve=315) BLOOD UREA NITROGEN 46 mg/dL 7-21 (BEAKER) (test sjke=897) CREATININE (BEAKER) (test 2.16 mg/dL 0.57-1.25 ugfp=533) GLUCOSE RANDOM (BEAKER) 160 mg/dL 70-105 (test leqp=957) CALCIUM (BEAKER) (test 7.8 mg/dL 8.4-10.2 htgq=011) EGFR (BEAKER) (test 23 mL/min/1.73 sq m ESTIMATED GFR IS NOT gtwr=6355) ACCURATE CREATININE CLEARANCE IN PREDICTING GLOMERULAR FILTRATION RATE. ESTIMATED GFR IS NOT APPLICABLE FOR DIALYSIS PATIENTS. POCT-GLUCOSE [id number] 13:21:00 Test Item Value Reference Range Comments POC-GLUCOSE METER (BEAKER) 170 mg/dL 70-110 TESTED AT [facility] [address] [place] [address] (test ewyh=7102) [facility] [address] POTASSIUM-STAT [id number] 13:20:00 Test Item Value Reference Range Comments POTASSIUM (BEAKER) (test aosa=490) 4.2 meq/L 3.6-5.5 SODIUM NA-STAT [id number] 13:20:00 Test Item Value Reference Range Comments SODIUM (BEAKER) (test aevl=865) 133 meq/L 135-148 HGB/HCT (H&H) - STAT [id number] 12:34:00 Test Item Value Reference Range Comments HEMOGLOBIN (BEAKER) (test dxal=839) 10.8 g/dL 12.0-15.0 HEMATOCRIT (BEAKER) (test dgxr=667) 32.0 % 36.0-45.0 POTASSIUM-STAT [id number] 08:15:00 Test Item Value Reference Range Comments POTASSIUM (BEAKER) (test ezli=795) 4.1 meq/L 3.6-5.5 BLOOD GAS, [id number] 08:15:00 Test Item Value Reference Range Comments PH ARTERIAL (BEAKER) (test nppw=969) 7.36 7.35-7.45 PCO2 ARTERIAL (BEAKER) (test mctf=197) 47 mmHg 35-45 PO2 ARTERIAL (BEAKER) (test quwe=335) 213 mmHg 80-90 O2 SATURATION ARTERIAL (BEAKER) (test uocq=655) 99.4 % 96.0-97.0 HCO3 ARTERIAL (BEAKER) (test edno=926) 26 mmol/L 21-29 BASE EXCESS ARTERIAL (BEAKER) (test zcta=445) 0.3 mmol/L -2.0-3.0 PATIENT TEMPERATURE (BEAKER) (test qlld=5437) 37.2 C FIO2 (BEAKER) (test vlvy=4973) 70.0 % SODIUM NA-STAT [id number] 08:15:00 Test Item Value Reference Range Comments SODIUM (BEAKER) (test sbmr=788) 130 meq/L 135-148 GLUCOSE-STAT [id number] 08:15:00 Test Item Value Reference Range Comments GLUCOSE RANDOM (BEAKER) (test anxm=068) 172 mg/dL 70-110 HGB/HCT (H&H) - STAT [id number] 08:15:00 Test Item Value Reference Range Comments HEMOGLOBIN (BEAKER) (test wrkl=051) 8.8 g/dL 12.0-15.0 HEMATOCRIT (BEAKER) (test tpqc=570) 26.0 % 36.0-45.0 BASIC METABOLIC [id number] 07:37:00 Test Item Value Reference Range Comments SODIUM (BEAKER) (test 135 meq/L 136-145 fjwo=179) POTASSIUM (BEAKER) (test 4.4 meq/L 3.5-5.1 urvv=202) CHLORIDE (BEAKER) (test 100 meq/L 98-107 tcww=713) CO2 (BEAKER) (test 23 meq/L 22-29 qhsm=488) BLOOD UREA NITROGEN 46 mg/dL 7-21 (BEAKER) (test ddnz=173) CREATININE (BEAKER) (test 1.98 mg/dL 0.57-1.25 qnlc=450) GLUCOSE RANDOM (BEAKER) 188 mg/dL 70-105 (test cqwf=183) CALCIUM (BEAKER) (test 8.9 mg/dL 8.4-10.2 eotb=115) EGFR (BEAKER) (test 26 mL/min/1.73 sq m ESTIMATED GFR IS NOT ljkt=9696) ACCURATE CREATININE CLEARANCE IN PREDICTING GLOMERULAR FILTRATION RATE. ESTIMATED GFR IS NOT APPLICABLE FOR DIALYSIS PATIENTS. CBC W/PLT COUNT & AUTO [id number] 07:20:00 Test Item Value Reference Range Comments WHITE BLOOD CELL COUNT (BEAKER) (test nwke=251) 20.2 K/ L 3.5-10.5 RED BLOOD CELL COUNT (BEAKER) (test kwyp=648) 3.86 M/ L 3.93-5.22 HEMOGLOBIN (BEAKER) (test zvfp=340) 9.1 GM/DL 11.2-15.7 HEMATOCRIT (BEAKER) (test vdyl=017) 29.4 % 34.1-44.9 MEAN CORPUSCULAR VOLUME (BEAKER) (test azfn=913) 76.2 fL 79.4-94.8 MEAN CORPUSCULAR HEMOGLOBIN (BEAKER) (test 23.6 pg 25.6-32.2 gtfo=630) MEAN CORPUSCULAR HEMOGLOBIN CONC (BEAKER) (test 31.0 GM/DL 32.2-35.5 gwio=150) RED CELL DISTRIBUTION WIDTH (BEAKER) (test 14.9 % 11.7-14.4 tsjh=215) PLATELET COUNT (BEAKER) (test aozk=471) 343 K/CU MM 150-450 MEAN PLATELET VOLUME (BEAKER) (test mvsx=674) 9.5 fL 9.4-12.3 NUCLEATED RED BLOOD CELLS (BEAKER) (test 0 /100 WBC 0-0 pdib=803) NEUTROPHILS RELATIVE PERCENT (BEAKER) (test 78 % gpdf=831) LYMPHOCYTES RELATIVE PERCENT (BEAKER) (test 15 % mojt=511) MONOCYTES RELATIVE PERCENT (BEAKER) (test 5 % ffzu=428) EOSINOPHILS RELATIVE PERCENT (BEAKER) (test 1 % odag=807) BASOPHILS RELATIVE PERCENT (BEAKER) (test 1 % oaxa=299) NEUTROPHILS ABSOLUTE COUNT (BEAKER) (test 15.70 K/ L 1.56-6.13 qbmk=647) LYMPHOCYTES ABSOLUTE COUNT (BEAKER) (test 2.99 K/ L 1.18-3.74 pqnf=544) MONOCYTES ABSOLUTE COUNT (BEAKER) (test 0.93 K/ L 0.24-0.36 hmze=850) EOSINOPHILS ABSOLUTE COUNT (BEAKER) (test 0.20 K/ L 0.04-0.36 nrjs=210) BASOPHILS ABSOLUTE COUNT (BEAKER) (test 0.12 K/ L 0.01-0.08 gatk=147) IMMATURE GRANULOCYTES-RELATIVE PERCENT (BEAKER) 1 % 0-1 (test pgfl=8923) POCT-GLUCOSE [id number] 07:03:00 Test Item Value Reference Range Comments POC-GLUCOSE METER (BEAKER) 186 mg/dL 70-110 TESTED AT [address] (test ujjp=3492) [facility] [address] B-TYPE NATRIURETIC FACTOR (BNP)2017-06-10 12:44:00 Test Item Value Reference Range Comments B-TYPE NATRIURETIC PEPTIDE (BEAKER) (test 1264 pg/mL 0-100 exeh=039) [id number] 12:36:00 Test Item Value Reference Range Comments MAGNESIUM (BEAKER) (test iekq=309) 1.6 mg/dL 1.6-2.6 BASIC METABOLIC [id number] 12:36:00 Test Item Value Reference Range Comments SODIUM (BEAKER) (test 137 meq/L 136-145 cpzd=708) POTASSIUM (BEAKER) (test 5.4 meq/L 3.5-5.1 uzuw=256) CHLORIDE (BEAKER) (test 108 meq/L 98-107 sktp=410) CO2 (BEAKER) (test 21 meq/L 22-29 sjlo=649) BLOOD UREA NITROGEN 39 mg/dL 7-21 (BEAKER) (test wknv=815) CREATININE (BEAKER) (test 1.49 mg/dL 0.57-1.25 hmdn=467) GLUCOSE RANDOM (BEAKER) 219 mg/dL 70-105 (test qfwz=177) CALCIUM (BEAKER) (test 8.5 mg/dL 8.4-10.2 blxa=853) EGFR (BEAKER) (test 35 mL/min/1.73 sq m ESTIMATED GFR IS NOT yxgz=1744) ACCURATE CREATININE CLEARANCE IN PREDICTING GLOMERULAR FILTRATION RATE. ESTIMATED GFR IS NOT APPLICABLE FOR DIALYSIS PATIENTS. POCT-GLUCOSE [id number] 12:04:00 Test Item Value Reference Range Comments POC-GLUCOSE METER (BEAKER) 274 mg/dL 70-110 TESTED AT [address] (test hkpy=8390) [facility] [address] POCT-GLUCOSE [id number] 07:21:00 Test Item Value Reference Range Comments POC-GLUCOSE METER (BEAKER) 137 mg/dL 70-110 TESTED AT [facility] [address] (test bvlt=4514) [facility] [address] BASIC METABOLIC [id number] 05:10:00 Test Item Value Reference Range Comments SODIUM (BEAKER) (test 137 meq/L 136-145 hcxu=938) POTASSIUM (BEAKER) (test 4.1 meq/L 3.5-5.1 yqso=622) CHLORIDE (BEAKER) (test 106 meq/L 98-107 zhwd=111) CO2 (BEAKER) (test 24 meq/L 22-29 nfsn=773) BLOOD UREA NITROGEN 42 mg/dL 7-21 (BEAKER) (test yydm=674) CREATININE (BEAKER) (test 1.64 mg/dL 0.57-1.25 tkve=610) GLUCOSE RANDOM (BEAKER) 162 mg/dL 70-105 (test qdff=498) CALCIUM (BEAKER) (test 8.1 mg/dL 8.4-10.2 nqcn=920) EGFR (BEAKER) (test 32 mL/min/1.73 sq m ESTIMATED GFR IS NOT ddaq=0043) ACCURATE CREATININE CLEARANCE IN PREDICTING GLOMERULAR FILTRATION RATE. ESTIMATED GFR IS NOT APPLICABLE FOR DIALYSIS PATIENTS. CBC (HEMOGRAM ONLY)2017-06-01 04:30:00 Test Item Value Reference Range Comments WHITE BLOOD CELL COUNT (BEAKER) (test oclg=986) 6.4 K/ L 3.5-10.5 RED BLOOD CELL COUNT (BEAKER) (test jxkv=723) 3.38 M/ L 3.93-5.22 HEMOGLOBIN (BEAKER) (test bxds=746) 8.7 GM/DL 11.2-15.7 HEMATOCRIT (BEAKER) (test dbcu=137) 28.2 % 34.1-44.9 MEAN CORPUSCULAR VOLUME (BEAKER) (test jyjk=355) 83.4 fL 79.4-94.8 MEAN CORPUSCULAR HEMOGLOBIN (BEAKER) (test 25.7 pg 25.6-32.2 mmje=066) MEAN CORPUSCULAR HEMOGLOBIN CONC (BEAKER) (test 30.9 GM/DL 32.2-35.5 fxui=475) RED CELL DISTRIBUTION WIDTH (BEAKER) (test 15.2 % 11.7-14.4 mtgh=047) PLATELET COUNT (BEAKER) (test xyew=788) 320 K/CU MM 150-450 MEAN PLATELET VOLUME (BEAKER) (test wuwf=678) 9.5 fL 9.4-12.3 NUCLEATED RED BLOOD CELLS (BEAKER) (test 0 /100 WBC 0-0 vfkn=506) POCT-GLUCOSE [id number] 21:23:00 Test Item Value Reference Range Comments POC-GLUCOSE METER (BEAKER) 240 mg/dL 70-110 TESTED AT [address] (test ousa=5252) [place] [id number] POCT-GLUCOSE [id number] 16:42:00 Test Item Value Reference Range Comments POC-GLUCOSE METER (BEAKER) 234 mg/dL 70-110 TESTED AT [address] (test bizd=6347) [place] [id number] POCT-GLUCOSE [id number] 13:22:00 Test Item Value Reference Range Comments POC-GLUCOSE METER (BEAKER) 166 mg/dL 70-110 TESTED AT [address] (test nrqb=7883) [facility] [address] RAD, CHEST, 1 VIEW, NON [id number] 09:43:00Reason for exam:->s/p ACBShould this be performed [...] Ring Verified Date/Time: 05/31/2017 09: 43:30 ReadingLocation: [facility] B1 [id number] Ortho Consult Reading Room POCT-GLUCOSE [id number] 06:57:00 Test Item Value Reference Range Comments POC-GLUCOSE METER (BEAKER) 136 mg/dL 70-110 TESTED AT [facility] [address] (test fels=3213) [facility] [address] CALCIUM, [id number] 06:41:00 Test Item Value Reference Range Comments CALCIUM IONIZED (BEAKER) (test hmur=240) 1.10 mmol/L 1.12-1.27 PH, BLOOD (BEAKER) (test xaqs=9248) 7.42 [id number] 06:17:00 Test Item Value Reference Range Comments PHOSPHORUS (BEAKER) (test vzbm=669) 3.3 mg/dL 2.3-4.7 [id number] 06:17:00 Test Item Value Reference Range Comments MAGNESIUM (BEAKER) (test odnk=359) 1.8 mg/dL 1.6-2.6 BASIC METABOLIC [id number] 06:17:00 Test Item Value Reference Range Comments SODIUM (BEAKER) (test 131 meq/L 136-145 mouy=806) POTASSIUM (BEAKER) (test 4.5 meq/L 3.5-5.1 bssh=540) CHLORIDE (BEAKER) (test 103 meq/L 98-107 glji=367) CO2 (BEAKER) (test 21 meq/L 22-29 xdst=290) BLOOD UREA NITROGEN 43 mg/dL 7-21 (BEAKER) (test xlrk=910) CREATININE (BEAKER) (test 1.74 mg/dL 0.57-1.25 nwsq=000) GLUCOSE RANDOM (BEAKER) 126 mg/dL 70-105 (test yjal=992) CALCIUM (BEAKER) (test 8.1 mg/dL 8.4-10.2 lttt=160) EGFR (BEAKER) (test 30 mL/min/1.73 sq m ESTIMATED GFR IS NOT sggq=6599) ACCURATE CREATININE CLEARANCE IN PREDICTING GLOMERULAR FILTRATION RATE. ESTIMATED GFR IS NOT APPLICABLE FOR DIALYSIS PATIENTS. CBC W/PLT COUNT & AUTO [id number] 05:07:00 Test Item Value Reference Range Comments WHITE BLOOD CELL COUNT (BEAKER) (test drzn=127) 5.9 K/ L 3.5-10.5 RED BLOOD CELL COUNT (BEAKER) (test bhcu=315) 3.16 M/ L 3.93-5.22 HEMOGLOBIN (BEAKER) (test umqm=689) 8.2 GM/DL 11.2-15.7 HEMATOCRIT (BEAKER) (test sfrt=128) 26.6 % 34.1-44.9 MEAN CORPUSCULAR VOLUME (BEAKER) (test zuwl=439) 84.2 fL 79.4-94.8 MEAN CORPUSCULAR HEMOGLOBIN (BEAKER) (test 25.9 pg 25.6-32.2 vfxs=018) MEAN CORPUSCULAR HEMOGLOBIN CONC (BEAKER) (test 30.8 GM/DL 32.2-35.5 tmxm=104) RED CELL DISTRIBUTION WIDTH (BEAKER) (test 15.1 % 11.7-14.4 bdvt=261) PLATELET COUNT (BEAKER) (test gvqw=683) 320 K/CU MM 150-450 MEAN PLATELET VOLUME (BEAKER) (test rxem=878) 9.6 fL 9.4-12.3 NUCLEATED RED BLOOD CELLS (BEAKER) (test 0 /100 WBC 0-0 swze=767) NEUTROPHILS RELATIVE PERCENT (BEAKER) (test 65 % cdrs=480) LYMPHOCYTES RELATIVE PERCENT (BEAKER) (test 24 % trnx=181) MONOCYTES RELATIVE PERCENT (BEAKER) (test 8 % yhhg=383) EOSINOPHILS RELATIVE PERCENT (BEAKER) (test 2 % rzsd=420) BASOPHILS RELATIVE PERCENT (BEAKER) (test 1 % oyna=580) NEUTROPHILS ABSOLUTE COUNT (BEAKER) (test 3.84 K/ L 1.56-6.13 lkxp=114) LYMPHOCYTES ABSOLUTE COUNT (BEAKER) (test 1.41 K/ L 1.18-3.74 qfwm=820) MONOCYTES ABSOLUTE COUNT (BEAKER) (test 0.47 K/ L 0.24-0.36 bdwq=198) EOSINOPHILS ABSOLUTE COUNT (BEAKER) (test 0.11 K/ L 0.04-0.36 oxkb=078) BASOPHILS ABSOLUTE COUNT (BEAKER) (test 0.05 K/ L 0.01-0.08 ltwd=372) IMMATURE GRANULOCYTES-RELATIVE PERCENT (BEAKER) 1 % 0-1 (test jcey=2562) POCT-GLUCOSE [id number] 20:56:00 Test Item Value Reference Range Comments POC-GLUCOSE METER (BEAKER) 196 mg/dL 70-110 TESTED AT [facility] [address] [facility] (test apsy=5686) [facility] [address] POCT-GLUCOSE [id number] 16:42:00 Test Item Value Reference Range Comments POC-GLUCOSE METER (BEAKER) 196 mg/dL 70-110 TESTED AT [facility] [address] [facility] (test euze=9457) [facility] [address] POCT-GLUCOSE [id number] 11:45:00 Test Item Value Reference Range Comments POC-GLUCOSE METER (BEAKER) 215 mg/dL 70-110 TESTED AT [place] [id number] [facility] (test cbgt=6284) [facility] [address] RAD, CHEST, 1 VIEW, NON [id number] 11:15:00Reason for exam:->s/p ACBShould this be performed at the bedside?->YesFINAL REPORT Chest one view compared to May 28, 2017 Discussion: Airspace opacities are seen in both lower lung regions, probably atelectasis. Correlate clinically for infection. I could not exclude small effusions. No pneumothorax. Upper lungs clear. Signed: Jeannette Nava Verified Date/Time: 2017 11:15:07 Reading Location: [facility] Radiology Reading Room CALCIUM, [id number] 09:21:00 Test Item Value Reference Range Comments CALCIUM IONIZED (BEAKER) (test xflc=705) 1.11 mmol/L 1.12-1.27 PH, BLOOD (BEAKER) (test ptup=8151) 7.36 BASIC METABOLIC [id number] 07:37:00 Test Item Value Reference Range Comments SODIUM (BEAKER) (test 135 meq/L 136-145 zrng=661) POTASSIUM (BEAKER) (test 4.9 meq/L 3.5-5.1 maua=972) CHLORIDE (BEAKER) (test 105 meq/L 98-107 fwdp=533) CO2 (BEAKER) (test 25 meq/L 22-29 mxvl=387) BLOOD UREA NITROGEN 44 mg/dL 7-21 (BEAKER) (test cfeq=270) CREATININE (BEAKER) (test 1.76 mg/dL 0.57-1.25 irmf=310) GLUCOSE RANDOM (BEAKER) 136 mg/dL 70-105 (test nrlc=789) CALCIUM (BEAKER) (test 8.2 mg/dL 8.4-10.2 jgzd=751) EGFR (BEAKER) (test 29 mL/min/1.73 sq m ESTIMATED GFR IS NOT wtho=3431) ACCURATE CREATININE CLEARANCE IN PREDICTING GLOMERULAR FILTRATION RATE. ESTIMATED GFR IS NOT APPLICABLE FOR DIALYSIS PATIENTS. [id number] 07:28:00 Test Item Value Reference Range Comments PHOSPHORUS (BEAKER) (test ktal=335) 3.8 mg/dL 2.3-4.7 [id number] 07:28:00 Test Item Value Reference Range Comments MAGNESIUM (BEAKER) (test eoin=090) 1.9 mg/dL 1.6-2.6 CBC W/PLT COUNT & AUTO [id number] 07:26:00 Test Item Value Reference Range Comments WHITE BLOOD CELL COUNT (BEAKER) (test mlgf=757) 6.3 K/ L 3.5-10.5 RED BLOOD CELL COUNT (BEAKER) (test laus=402) 3.32 M/ L 3.93-5.22 HEMOGLOBIN (BEAKER) (test iygy=180) 8.5 GM/DL 11.2-15.7 HEMATOCRIT (BEAKER) (test pies=194) 27.8 % 34.1-44.9 MEAN CORPUSCULAR VOLUME (BEAKER) (test rsiq=442) 83.7 fL 79.4-94.8 MEAN CORPUSCULAR HEMOGLOBIN (BEAKER) (test 25.6 pg 25.6-32.2 wqxk=330) MEAN CORPUSCULAR HEMOGLOBIN CONC (BEAKER) (test 30.6 GM/DL 32.2-35.5 lkoe=445) RED CELL DISTRIBUTION WIDTH (BEAKER) (test 15.0 % 11.7-14.4 pbot=106) PLATELET COUNT (BEAKER) (test ddey=404) 336 K/CU MM 150-450 MEAN PLATELET VOLUME (BEAKER) (test hgxm=344) 9.8 fL 9.4-12.3 NUCLEATED RED BLOOD CELLS (BEAKER) (test 0 /100 WBC 0-0 omko=798) NEUTROPHILS RELATIVE PERCENT (BEAKER) (test 65 % ziwj=455) LYMPHOCYTES RELATIVE PERCENT (BEAKER) (test 24 % dlza=581) MONOCYTES RELATIVE PERCENT (BEAKER) (test 7 % pvwe=066) EOSINOPHILS RELATIVE PERCENT (BEAKER) (test 3 % orfp=692) BASOPHILS RELATIVE PERCENT (BEAKER) (test 0 % oinp=609) NEUTROPHILS ABSOLUTE COUNT (BEAKER) (test 4.13 K/ L 1.56-6.13 usnk=042) LYMPHOCYTES ABSOLUTE COUNT (BEAKER) (test 1.50 K/ L 1.18-3.74 icvp=503) MONOCYTES ABSOLUTE COUNT (BEAKER) (test 0.44 K/ L 0.24-0.36 qifg=187) EOSINOPHILS ABSOLUTE COUNT (BEAKER) (test 0.20 K/ L 0.04-0.36 nurg=970) BASOPHILS ABSOLUTE COUNT (BEAKER) (test 0.02 K/ L 0.01-0.08 oktm=541) IMMATURE GRANULOCYTES-RELATIVE PERCENT (BEAKER) 1 % 0-1 (test tbiq=8726) POCT-GLUCOSE [id number] 07:21:00 Test Item Value Reference Range Comments POC-GLUCOSE METER (BEAKER) 146 mg/dL 70-110 TESTED AT [address] (test dqju=1047) [place] [address] POCT-GLUCOSE [id number] 22:02:00 Test Item Value Reference Range Comments POC-GLUCOSE METER (BEAKER) 201 mg/dL 70-110 TESTED AT [address] (test fpmq=3706) [place] [address] POCT-GLUCOSE [id number] 18:27:00 Test Item Value Reference Range Comments POC-GLUCOSE METER (BEAKER) 240 mg/dL 70-110 TESTED AT [address] (test pzlx=1773) [place] [id number] POCT-GLUCOSE [id number] 12:13:00 Test Item Value Reference Range Comments POC-GLUCOSE METER (BEAKER) 193 mg/dL 70-110 TESTED AT [address] (test jykn=8201) [place] [id number] POCT-GLUCOSE [id number] 09:02:00 Test Item Value Reference Range Comments POC-GLUCOSE METER (BEAKER) 132 mg/dL 70-110 TESTED AT [address] (test quku=8457) [place] [address] CALCIUM, [id number] 05:42:00 Test Item Value Reference Range Comments CALCIUM IONIZED (BEAKER) (test zkqa=383) 1.12 mmol/L 1.12-1.27 PH, BLOOD (BEAKER) (test ioea=4511) 7.34 COMPREHENSIVE METABOLIC [id number] 05:33:00 Test Item Value Reference Range Comments TOTAL PROTEIN (BEAKER) 5.9 gm/dL 6.0-8.3 (test fdoz=597) ALBUMIN (BEAKER) (test 2.7 g/dL 3.5-5.0 cvrm=7986) ALKALINE PHOSPHATASE 130 U/L 40-150 (BEAKER) (test sirz=224) BILIRUBIN TOTAL (BEAKER) 0.3 mg/dL 0.2-1.2 (test lkhs=729) SODIUM (BEAKER) (test 135 meq/L 136-145 apol=361) POTASSIUM (BEAKER) (test 4.7 meq/L 3.5-5.1 eyrb=397) CHLORIDE (BEAKER) (test 105 meq/L 98-107 bmaz=293) CO2 (BEAKER) (test 24 meq/L 22-29 horf=650) BLOOD UREA NITROGEN 42 mg/dL 7-21 (BEAKER) (test jhox=057) CREATININE (BEAKER) (test 1.78 mg/dL 0.57-1.25 lnwb=473) GLUCOSE RANDOM (BEAKER) 129 mg/dL 70-105 (test ebhf=138) CALCIUM (BEAKER) (test 8.5 mg/dL 8.4-10.2 eyfu=936) AST (SGOT) (BEAKER) (test 23 U/L 5-34 llmi=532) ALT (SGPT) (BEAKER) (test 15 U/L 6-55 iolq=250) EGFR (BEAKER) (test 29 mL/min/1.73 sq m ESTIMATED GFR IS NOT pdil=2243) ACCURATE CREATININE CLEARANCE IN PREDICTING GLOMERULAR FILTRATION RATE. ESTIMATED GFR IS NOT APPLICABLE FOR DIALYSIS PATIENTS. [id number] 05:32:00 Test Item Value Reference Range Comments PHOSPHORUS (BEAKER) (test ikyx=609) 3.6 mg/dL 2.3-4.7 [id number] 05:32:00 Test Item Value Reference Range Comments MAGNESIUM (BEAKER) (test xisf=443) 2.2 mg/dL 1.6-2.6 CBC W/PLT COUNT & AUTO [id number] 05:01:00 Test Item Value Reference Range Comments WHITE BLOOD CELL COUNT (BEAKER) (test twrs=116) 6.4 K/ L 3.5-10.5 RED BLOOD CELL COUNT (BEAKER) (test ewet=174) 3.43 M/ L 3.93-5.22 HEMOGLOBIN (BEAKER) (test mnbz=713) 8.9 GM/DL 11.2-15.7 HEMATOCRIT (BEAKER) (test scmt=646) 28.9 % 34.1-44.9 MEAN CORPUSCULAR VOLUME (BEAKER) (test dpke=396) 84.3 fL 79.4-94.8 MEAN CORPUSCULAR HEMOGLOBIN (BEAKER) (test 25.9 pg 25.6-32.2 skxi=269) MEAN CORPUSCULAR HEMOGLOBIN CONC (BEAKER) (test 30.8 GM/DL 32.2-35.5 iiys=503) RED CELL DISTRIBUTION WIDTH (BEAKER) (test 15.0 % 11.7-14.4 yqwr=112) PLATELET COUNT (BEAKER) (test mpax=611) 324 K/CU MM 150-450 MEAN PLATELET VOLUME (BEAKER) (test ovdl=388) 9.3 fL 9.4-12.3 NUCLEATED RED BLOOD CELLS (BEAKER) (test 0 /100 WBC 0-0 jqmc=354) NEUTROPHILS RELATIVE PERCENT (BEAKER) (test 62 % butn=934) LYMPHOCYTES RELATIVE PERCENT (BEAKER) (test 25 % fqgh=210) MONOCYTES RELATIVE PERCENT (BEAKER) (test 8 % elyc=732) EOSINOPHILS RELATIVE PERCENT (BEAKER) (test 4 % fcjm=915) BASOPHILS RELATIVE PERCENT (BEAKER) (test 1 % wfnl=558) NEUTROPHILS ABSOLUTE COUNT (BEAKER) (test 3.93 K/ L 1.56-6.13 gegq=473) LYMPHOCYTES ABSOLUTE COUNT (BEAKER) (test 1.60 K/ L 1.18-3.74 aabw=859) MONOCYTES ABSOLUTE COUNT (BEAKER) (test 0.51 K/ L 0.24-0.36 tvmz=579) EOSINOPHILS ABSOLUTE COUNT (BEAKER) (test 0.25 K/ L 0.04-0.36 ykod=254) BASOPHILS ABSOLUTE COUNT (BEAKER) (test 0.03 K/ L 0.01-0.08 zmnn=974) IMMATURE GRANULOCYTES-RELATIVE PERCENT (BEAKER) 1 % 0-1 (test fual=8542) POCT-GLUCOSE [id number] 21:04:00 Test Item Value Reference Range Comments POC-GLUCOSE METER (BEAKER) 165 mg/dL 70-110 TESTED AT [address] (test rema=3138) [facility] [address] POCT-GLUCOSE [id number] 17:30:00 Test Item Value Reference Range Comments POC-GLUCOSE METER (BEAKER) 236 mg/dL 70-110 TESTED AT [address] (test rtgl=2494) [facility] [address] RAD, CHEST, 1 VIEW, NON [id number] 13:53:00Reason for exam:->assess for ill-defined opacityShould this [...] [place]away Verified Date/Time: 05/28/2017 13:53:03 Reading Location: [address] Radiology Reading Room Electronically signed by: LUIS ALBERTO CALLAWAY M.D. on 01:53 PMPOCT-GLUCOSE [id number] 11:53:00 Test Item Value Reference Range Comments POC-GLUCOSE METER (BEAKER) 215 mg/dL 70-110 TESTED AT [address] (test jxqd=9977) [facility] [address] POCT-GLUCOSE [id number] 08:32:00 Test Item Value Reference Range Comments POC-GLUCOSE METER (BEAKER) 168 mg/dL 70-110 TESTED AT [address] (test guaq=2081) [facility] [address] CALCIUM, [id number] 05:44:00 Test Item Value Reference Range Comments CALCIUM IONIZED (BEAKER) (test licb=537) 1.09 mmol/L 1.12-1.27 PH, BLOOD (BEAKER) (test pcwv=7818) 7.38 [id number] 05:44:00 Test Item Value Reference Range Comments PHOSPHORUS (BEAKER) (test ebma=946) 3.5 mg/dL 2.3-4.7 [id number] 05:44:00 Test Item Value Reference Range Comments MAGNESIUM (BEAKER) (test iypb=553) 1.9 mg/dL 1.6-2.6 BASIC METABOLIC [id number] 05:44:00 Test Item Value Reference Range Comments SODIUM (BEAKER) (test 137 meq/L 136-145 lkfo=491) POTASSIUM (BEAKER) (test 4.5 meq/L 3.5-5.1 pbie=335) CHLORIDE (BEAKER) (test 108 meq/L 98-107 znnh=040) CO2 (BEAKER) (test 23 meq/L 22-29 jurq=874) BLOOD UREA NITROGEN 41 mg/dL 7-21 (BEAKER) (test scuk=079) CREATININE (BEAKER) (test 1.41 mg/dL 0.57-1.25 gntq=864) GLUCOSE RANDOM (BEAKER) 113 mg/dL 70-105 (test mhnp=658) CALCIUM (BEAKER) (test 8.1 mg/dL 8.4-10.2 owmy=020) EGFR (BEAKER) (test 38 mL/min/1.73 sq m ESTIMATED GFR IS NOT arfv=1375) ACCURATE CREATININE CLEARANCE IN PREDICTING GLOMERULAR FILTRATION RATE. ESTIMATED GFR IS NOT APPLICABLE FOR DIALYSIS PATIENTS. CBC W/PLT COUNT & AUTO [id number] 05:05:00 Test Item Value Reference Range Comments WHITE BLOOD CELL COUNT (BEAKER) (test wdwh=381) 6.3 K/ L 3.5-10.5 RED BLOOD CELL COUNT (BEAKER) (test sfst=552) 3.40 M/ L 3.93-5.22 HEMOGLOBIN (BEAKER) (test ikqx=007) 8.8 GM/DL 11.2-15.7 HEMATOCRIT (BEAKER) (test xopw=102) 29.0 % 34.1-44.9 MEAN CORPUSCULAR VOLUME (BEAKER) (test lrsc=440) 85.3 fL 79.4-94.8 MEAN CORPUSCULAR HEMOGLOBIN (BEAKER) (test 25.9 pg 25.6-32.2 qyqa=148) MEAN CORPUSCULAR HEMOGLOBIN CONC (BEAKER) (test 30.3 GM/DL 32.2-35.5 ljwx=170) RED CELL DISTRIBUTION WIDTH (BEAKER) (test 14.9 % 11.7-14.4 tzzn=455) PLATELET COUNT (BEAKER) (test irgm=505) 282 K/CU MM 150-450 MEAN PLATELET VOLUME (BEAKER) (test etiq=994) 9.5 fL 9.4-12.3 NUCLEATED RED BLOOD CELLS (BEAKER) (test 0 /100 WBC 0-0 ovur=700) NEUTROPHILS RELATIVE PERCENT (BEAKER) (test 59 % wmbf=004) LYMPHOCYTES RELATIVE PERCENT (BEAKER) (test 28 % xypv=531) MONOCYTES RELATIVE PERCENT (BEAKER) (test 7 % smsc=850) EOSINOPHILS RELATIVE PERCENT (BEAKER) (test 4 % kmqm=338) BASOPHILS RELATIVE PERCENT (BEAKER) (test 1 % jfly=643) NEUTROPHILS ABSOLUTE COUNT (BEAKER) (test 3.75 K/ L 1.56-6.13 vaxl=918) LYMPHOCYTES ABSOLUTE COUNT (BEAKER) (test 1.80 K/ L 1.18-3.74 oyvy=224) MONOCYTES ABSOLUTE COUNT (BEAKER) (test 0.45 K/ L 0.24-0.36 irlk=910) EOSINOPHILS ABSOLUTE COUNT (BEAKER) (test 0.25 K/ L 0.04-0.36 wmgi=560) BASOPHILS ABSOLUTE COUNT (BEAKER) (test 0.05 K/ L 0.01-0.08 kgeo=490) IMMATURE GRANULOCYTES-RELATIVE PERCENT (BEAKER) 1 % 0-1 (test akrq=9520) POCT-GLUCOSE [id number] 21:03:00 Test Item Value Reference Range Comments POC-GLUCOSE METER (BEAKER) 173 mg/dL 70-110 TESTED AT [address] (test hqug=2500) [place] [id number] 18:15:00 Test Item Value Reference Range Comments ACTIVATED CLOTTING TIME 147 sec TESTED AT [address] (BEAKER) (test djiy=110) [place] [address] [id number] 18:15:00 Test Item Value Reference Range Comments ACTIVATED CLOTTING TIME 246 sec TESTED AT [place] [address] [address] (BEAKER) (test csld=595) [facility] [address] POCT-GLUCOSE [id number] 12:39:00 Test Item Value Reference Range Comments POC-GLUCOSE METER (BEAKER) 219 mg/dL 70-110 TESTED AT [address] (test eeye=9930) [facility] [address] RAD, CHEST, 1 VIEW, NON [id number] 10:11:00Reason for exam:->pl effusionShould this be performed at the bedside?->YesFINAL REPORT Chest one view compared to May 26 Discussion: There is cardiac prominence. Upper lungs are clear. Ill-defined basilar densities are similar probably atelectasis. No gross effusion or pneumothorax with bilateral chest tubes in place. Signed: Jeannette Nava Verified Date/Time: 2017 10:11:44 Reading Location: [facility] Radiology Reading Room POCT- GLUCOSE [id number] 07:05:00 Test Item Value Reference Range Comments POC-GLUCOSE METER (BEAKER) 167 mg/dL 70-110 TESTED AT [address] (test oemu=0872) [facility] [address] CALCIUM, [id number] 06:20:00 Test Item Value Reference Range Comments CALCIUM IONIZED (BEAKER) (test eybo=817) 0.98 mmol/L 1.12-1.27 PH, BLOOD (BEAKER) (test nxho=3103) 7.50 [id number] 04:56:00 Test Item Value Reference Range Comments PHOSPHORUS (BEAKER) (test iorw=954) 2.6 mg/dL 2.3-4.7 [id number] 04:56:00 Test Item Value Reference Range Comments MAGNESIUM (BEAKER) (test uqia=326) 2.0 mg/dL 1.6-2.6 BASIC METABOLIC [id number] 04:56:00 Test Item Value Reference Range Comments SODIUM (BEAKER) (test 135 meq/L 136-145 gqgu=532) POTASSIUM (BEAKER) (test 4.5 meq/L 3.5-5.1 qbmq=072) CHLORIDE (BEAKER) (test 105 meq/L 98-107 dvmu=798) CO2 (BEAKER) (test 22 meq/L 22-29 gwam=055) BLOOD UREA NITROGEN 47 mg/dL 7-21 (BEAKER) (test pddc=478) CREATININE (BEAKER) (test 1.44 mg/dL 0.57-1.25 qkdf=355) GLUCOSE RANDOM (BEAKER) 177 mg/dL 70-105 (test isyr=605) CALCIUM (BEAKER) (test 8.0 mg/dL 8.4-10.2 nsdj=287) EGFR (BEAKER) (test 37 mL/min/1.73 sq m ESTIMATED GFR IS NOT lxot=3039) ACCURATE CREATININE CLEARANCE IN PREDICTING GLOMERULAR FILTRATION RATE. ESTIMATED GFR IS NOT APPLICABLE FOR DIALYSIS PATIENTS. CBC W/PLT COUNT & AUTO [id number] 04:36:00 Test Item Value Reference Range Comments WHITE BLOOD CELL COUNT (BEAKER) (test ibvm=063) 6.1 K/ L 3.5-10.5 RED BLOOD CELL COUNT (BEAKER) (test svvb=218) 3.35 M/ L 3.93-5.22 HEMOGLOBIN (BEAKER) (test dfld=952) 8.6 GM/DL 11.2-15.7 HEMATOCRIT (BEAKER) (test bhvp=015) 28.0 % 34.1-44.9 MEAN CORPUSCULAR VOLUME (BEAKER) (test qjnn=799) 83.6 fL 79.4-94.8 MEAN CORPUSCULAR HEMOGLOBIN (BEAKER) (test 25.7 pg 25.6-32.2 yakx=314) MEAN CORPUSCULAR HEMOGLOBIN CONC (BEAKER) (test 30.7 GM/DL 32.2-35.5 ygim=248) RED CELL DISTRIBUTION WIDTH (BEAKER) (test 14.7 % 11.7-14.4 tost=307) PLATELET COUNT (BEAKER) (test fcjf=502) 280 K/CU MM 150-450 MEAN PLATELET VOLUME (BEAKER) (test qlyd=360) 9.9 fL 9.4-12.3 NUCLEATED RED BLOOD CELLS (BEAKER) (test 0 /100 WBC 0-0 ypjy=509) NEUTROPHILS RELATIVE PERCENT (BEAKER) (test 65 % lmrt=396) LYMPHOCYTES RELATIVE PERCENT (BEAKER) (test 23 % qqtv=010) MONOCYTES RELATIVE PERCENT (BEAKER) (test 7 % jgsm=902) EOSINOPHILS RELATIVE PERCENT (BEAKER) (test 4 % mbxd=494) BASOPHILS RELATIVE PERCENT (BEAKER) (test 1 % rclz=934) NEUTROPHILS ABSOLUTE COUNT (BEAKER) (test 3.97 K/ L 1.56-6.13 vvpb=456) LYMPHOCYTES ABSOLUTE COUNT (BEAKER) (test 1.41 K/ L 1.18-3.74 kfuf=063) MONOCYTES ABSOLUTE COUNT (BEAKER) (test 0.44 K/ L 0.24-0.36 aefx=292) EOSINOPHILS ABSOLUTE COUNT (BEAKER) (test 0.22 K/ L 0.04-0.36 movf=054) BASOPHILS ABSOLUTE COUNT (BEAKER) (test 0.05 K/ L 0.01-0.08 dvoe=013) IMMATURE GRANULOCYTES-RELATIVE PERCENT (BEAKER) 1 % 0-1 (test eixx=2656) POCT-GLUCOSE [id number] 21:29:00 Test Item Value Reference Range Comments POC-GLUCOSE METER (BEAKER) 147 mg/dL 70-110 TESTED AT [address] (test yfnw=9406) [place] [address] POCT-GLUCOSE [id number] 17:51:00 Test Item Value Reference Range Comments POC-GLUCOSE METER (BEAKER) 224 mg/dL 70-110 TESTED AT [address] (test pjlb=5243) [place] [address] POCT-GLUCOSE [id number] 13:53:00 Test Item Value Reference Range Comments POC-GLUCOSE METER (BEAKER) 182 mg/dL 70-110 TESTED AT [address] (test ajgt=6278) [place] [id number] RAD, CHEST, 1 VIEW, NON [id number] 08:44:00Reason for exam:->pl effusionShould this be performed [...] Verified Date/Time : 05/26/2017 08:44:25 Reading Location: [address] Radiology Reading Room POCT- GLUCOSE [id number] 07:43:00 Test Item Value Reference Range Comments POC-GLUCOSE METER (BEAKER) 113 mg/dL 70-110 TESTED AT [facility] [address] [facility] (test qkzf=9732) [facility] [address] CALCIUM, [id number] 06:31:00 Test Item Value Reference Range Comments CALCIUM IONIZED (BEAKER) (test sqll=418) 1.07 mmol/L 1.12-1.27 PH, BLOOD (BEAKER) (test tjyh=8387) 7.38 [id number] 04:51:00 Test Item Value Reference Range Comments PHOSPHORUS (BEAKER) (test xjqu=480) 3.2 mg/dL 2.3-4.7 [id number] 04:51:00 Test Item Value Reference Range Comments MAGNESIUM (BEAKER) (test uznz=197) 2.1 mg/dL 1.6-2.6 BASIC METABOLIC [id number] 04:51:00 Test Item Value Reference Range Comments SODIUM (BEAKER) (test 139 meq/L 136-145 dvhd=037) POTASSIUM (BEAKER) (test 4.1 meq/L 3.5-5.1 vdaz=209) CHLORIDE (BEAKER) (test 106 meq/L 98-107 psjk=845) CO2 (BEAKER) (test 24 meq/L 22-29 fuzc=302) BLOOD UREA NITROGEN 52 mg/dL 7-21 (BEAKER) (test pxcg=361) CREATININE (BEAKER) (test 1.52 mg/dL 0.57-1.25 hqyk=445) GLUCOSE RANDOM (BEAKER) 108 mg/dL 70-105 (test lwqz=566) CALCIUM (BEAKER) (test 8.4 mg/dL 8.4-10.2 giwh=731) EGFR (BEAKER) (test 35 mL/min/1.73 sq m ESTIMATED GFR IS NOT fozt=9392) ACCURATE CREATININE CLEARANCE IN PREDICTING GLOMERULAR FILTRATION RATE. ESTIMATED GFR IS NOT APPLICABLE FOR DIALYSIS PATIENTS. CBC W/PLT COUNT & AUTO [id number] 04:27:00 Test Item Value Reference Range Comments WHITE BLOOD CELL COUNT (BEAKER) (test kzcn=226) 7.2 K/ L 3.5-10.5 RED BLOOD CELL COUNT (BEAKER) (test cmao=784) 3.53 M/ L 3.93-5.22 HEMOGLOBIN (BEAKER) (test eltf=167) 9.1 GM/DL 11.2-15.7 HEMATOCRIT (BEAKER) (test xngk=672) 29.5 % 34.1-44.9 MEAN CORPUSCULAR VOLUME (BEAKER) (test bhnw=464) 83.6 fL 79.4-94.8 MEAN CORPUSCULAR HEMOGLOBIN (BEAKER) (test 25.8 pg 25.6-32.2 xeek=769) MEAN CORPUSCULAR HEMOGLOBIN CONC (BEAKER) (test 30.8 GM/DL 32.2-35.5 ckgg=586) RED CELL DISTRIBUTION WIDTH (BEAKER) (test 14.6 % 11.7-14.4 tizq=021) PLATELET COUNT (BEAKER) (test rxtg=421) 296 K/CU MM 150-450 MEAN PLATELET VOLUME (BEAKER) (test mgvi=238) 9.5 fL 9.4-12.3 NUCLEATED RED BLOOD CELLS (BEAKER) (test 0 /100 WBC 0-0 onmg=038) NEUTROPHILS RELATIVE PERCENT (BEAKER) (test 67 % npcy=049) LYMPHOCYTES RELATIVE PERCENT (BEAKER) (test 21 % nstj=309) MONOCYTES RELATIVE PERCENT (BEAKER) (test 7 % hzsr=789) EOSINOPHILS RELATIVE PERCENT (BEAKER) (test 4 % ospv=689) BASOPHILS RELATIVE PERCENT (BEAKER) (test 1 % ovpj=704) NEUTROPHILS ABSOLUTE COUNT (BEAKER) (test 4.79 K/ L 1.56-6.13 yofr=005) LYMPHOCYTES ABSOLUTE COUNT (BEAKER) (test 1.49 K/ L 1.18-3.74 wmje=435) MONOCYTES ABSOLUTE COUNT (BEAKER) (test 0.50 K/ L 0.24-0.36 uluo=964) EOSINOPHILS ABSOLUTE COUNT (BEAKER) (test 0.30 K/ L 0.04-0.36 tzgu=122) BASOPHILS ABSOLUTE COUNT (BEAKER) (test 0.05 K/ L 0.01-0.08 hrlq=231) IMMATURE GRANULOCYTES-RELATIVE PERCENT (BEAKER) 0 % 0-1 (test fqvv=4178) POCT-GLUCOSE [id number] 23:48:00 Test Item Value Reference Range Comments POC-GLUCOSE METER (BEAKER) 123 mg/dL 70-110 TESTED AT [address] (test laul=9005) [place] [address] POCT-GLUCOSE [id number] 16:46:00 Test Item Value Reference Range Comments POC-GLUCOSE METER (BEAKER) 178 mg/dL 70-110 TESTED AT [address] (test tyzr=8679) [place] [address] BASIC METABOLIC [id number] 05:53:00 Test Item Value Reference Range Comments SODIUM (BEAKER) (test 139 meq/L 136-145 vmnk=313) POTASSIUM (BEAKER) (test 3.9 meq/L 3.5-5.1 tckz=166) CHLORIDE (BEAKER) (test 106 meq/L 98-107 fbvx=644) CO2 (BEAKER) (test 23 meq/L 22-29 wbyj=959) BLOOD UREA NITROGEN 62 mg/dL 7-21 (BEAKER) (test dsih=028) CREATININE (BEAKER) (test 2.05 mg/dL 0.57-1.25 yiua=047) GLUCOSE RANDOM (BEAKER) 87 mg/dL 70-105 (test mhty=876) CALCIUM (BEAKER) (test 7.9 mg/dL 8.4-10.2 inql=810) EGFR (BEAKER) (test 25 mL/min/1.73 sq m ESTIMATED GFR IS NOT zzxx=7791) ACCURATE CREATININE CLEARANCE IN PREDICTING GLOMERULAR FILTRATION RATE. ESTIMATED GFR IS NOT APPLICABLE FOR DIALYSIS PATIENTS. [id number] 05:52:00 Test Item Value Reference Range Comments PHOSPHORUS (BEAKER) (test jsnu=509) 4.2 mg/dL 2.3-4.7 [id number] 05:52:00 Test Item Value Reference Range Comments MAGNESIUM (BEAKER) (test sbvq=895) 2.3 mg/dL 1.6-2.6 CALCIUM, [id number] 05:27:00 Test Item Value Reference Range Comments CALCIUM IONIZED (BEAKER) (test zwpt=006) 1.12 mmol/L 1.12-1.27 PH, BLOOD (BEAKER) (test qifa=3783) 7.38 CBC W/PLT COUNT & AUTO [id number] 05:07:00 Test Item Value Reference Range Comments WHITE BLOOD CELL COUNT (BEAKER) (test nrfj=023) 8.4 K/ L 3.5-10.5 RED BLOOD CELL COUNT (BEAKER) (test tjzv=075) 3.16 M/ L 3.93-5.22 HEMOGLOBIN (BEAKER) (test yegj=214) 8.2 GM/DL 11.2-15.7 HEMATOCRIT (BEAKER) (test vqef=108) 26.5 % 34.1-44.9 MEAN CORPUSCULAR VOLUME (BEAKER) (test kobn=829) 83.9 fL 79.4-94.8 MEAN CORPUSCULAR HEMOGLOBIN (BEAKER) (test 25.9 pg 25.6-32.2 cgib=253) MEAN CORPUSCULAR HEMOGLOBIN CONC (BEAKER) (test 30.9 GM/DL 32.2-35.5 tcgf=056) RED CELL DISTRIBUTION WIDTH (BEAKER) (test 14.6 % 11.7-14.4 fetc=297) PLATELET COUNT (BEAKER) (test pswr=908) 256 K/CU MM 150-450 MEAN PLATELET VOLUME (BEAKER) (test svvg=728) 10.0 fL 9.4-12.3 NUCLEATED RED BLOOD CELLS (BEAKER) (test 0 /100 WBC 0-0 sjtn=328) NEUTROPHILS RELATIVE PERCENT (BEAKER) (test 63 % hdwn=393) LYMPHOCYTES RELATIVE PERCENT (BEAKER) (test 25 % inhl=199) MONOCYTES RELATIVE PERCENT (BEAKER) (test 8 % xvhx=170) EOSINOPHILS RELATIVE PERCENT (BEAKER) (test 3 % jzfr=805) BASOPHILS RELATIVE PERCENT (BEAKER) (test 1 % ufyl=463) NEUTROPHILS ABSOLUTE COUNT (BEAKER) (test 5.27 K/ L 1.56-6.13 tunh=095) LYMPHOCYTES ABSOLUTE COUNT (BEAKER) (test 2.09 K/ L 1.18-3.74 qfdk=086) MONOCYTES ABSOLUTE COUNT (BEAKER) (test 0.63 K/ L 0.24-0.36 cnzl=929) EOSINOPHILS ABSOLUTE COUNT (BEAKER) (test 0.27 K/ L 0.04-0.36 bwcq=693) BASOPHILS ABSOLUTE COUNT (BEAKER) (test 0.05 K/ L 0.01-0.08 cewn=312) IMMATURE GRANULOCYTES-RELATIVE PERCENT (BEAKER) 1 % 0-1 (test upcc=3500) RAD, CHEST, 1 VIEW, NON [id number] 04:45:00Reason for exam:->pl effusionShould this be performed [...] Verified Date/Time: 05/25/2017 04:45:08 Reading Location: [address] Body Reading Room POCT-GLUCOSE [id number] 01:52:00 Test Item Value Reference Range Comments POC-GLUCOSE METER (BEAKER) 126 mg/dL 70-110 TESTED AT [address] (test yqoy=8706) [facility] [address] POCT-GLUCOSE [id number] 13:07:00 Test Item Value Reference Range Comments POC-GLUCOSE METER (BEAKER) 118 mg/dL 70-110 TESTED AT [place] [id number] [facility] (test nkwq=4700) [facility] [address] BRONCHIAL CULTURE + GRAM [id number] 11:35:00 Test Item Value Reference Range Comments CULTURE (BEAKER) (test nzhr=1934) Amikacin (test code=1) Susceptible 0-16 , Resistant [...] >40 code=47) CULTURE (BEAKER) (test 4+ Bordetella vjvy=4747) bronchiseptica GRAM STAIN RESULT 1+ WBCs (BEAKER) (test utou=0120) GRAM STAIN RESULT <1+ gram positive (BEAKER) (test cocci in pairs ztsd=005432) GRAM STAIN RESULT 1+ gram variable (BEAKER) (test rods svwi=876293) 1+ Normal respiratory todd presentRAD, CHEST, 1 VIEW, NON [id number] 06:50: 00Reason for exam:->pl effusionShould this be [...] Verified Date/Time: 05/24/2017 06:50:08 Reading Location: [address] Body Reading Room BASIC METABOLIC [id number] 04: 19:00 Test Item Value Reference Range Comments SODIUM (BEAKER) (test 136 meq/L 136-145 qyqk=725) POTASSIUM (BEAKER) (test 4.3 meq/L 3.5-5.1 karp=217) CHLORIDE (BEAKER) (test 104 meq/L 98-107 vvow=638) CO2 (BEAKER) (test 20 meq/L 22-29 mfgi=926) BLOOD UREA NITROGEN 61 mg/dL 7-21 (BEAKER) (test ctgt=105) CREATININE (BEAKER) (test 2.69 mg/dL 0.57-1.25 qvnh=734) GLUCOSE RANDOM (BEAKER) 107 mg/dL 70-105 (test fnmq=042) CALCIUM (BEAKER) (test 7.8 mg/dL 8.4-10.2 nkyk=272) EGFR (BEAKER) (test 18 mL/min/1.73 sq m ESTIMATED GFR IS NOT ofhe=3050) ACCURATE CREATININE CLEARANCE IN PREDICTING GLOMERULAR FILTRATION RATE. ESTIMATED GFR IS NOT APPLICABLE FOR DIALYSIS PATIENTS. CALCIUM, [id number] 04:16:00 Test Item Value Reference Range Comments CALCIUM IONIZED (BEAKER) (test jvgj=725) 1.06 mmol/L 1.12-1.27 PH, BLOOD (BEAKER) (test lobk=3873) 7.40 [id number] 04:11:00 Test Item Value Reference Range Comments PHOSPHORUS (BEAKER) (test pzfl=459) 6.0 mg/dL 2.3-4.7 [id number] 04:11:00 Test Item Value Reference Range Comments MAGNESIUM (BEAKER) (test dlwt=127) 2.4 mg/dL 1.6-2.6 CBC W/PLT COUNT & AUTO [id number] 03:50:00 Test Item Value Reference Range Comments WHITE BLOOD CELL COUNT (BEAKER) (test fpjj=278) 9.5 K/ L 3.5-10.5 RED BLOOD CELL COUNT (BEAKER) (test gxli=613) 3.06 M/ L 3.93-5.22 HEMOGLOBIN (BEAKER) (test fudo=960) 7.9 GM/DL 11.2-15.7 HEMATOCRIT (BEAKER) (test cxwv=080) 25.5 % 34.1-44.9 MEAN CORPUSCULAR VOLUME (BEAKER) (test osgh=668) 83.3 fL 79.4-94.8 MEAN CORPUSCULAR HEMOGLOBIN (BEAKER) (test 25.8 pg 25.6-32.2 thcq=550) MEAN CORPUSCULAR HEMOGLOBIN CONC (BEAKER) (test 31.0 GM/DL 32.2-35.5 wzzc=254) RED CELL DISTRIBUTION WIDTH (BEAKER) (test 15.1 % 11.7-14.4 ntpf=714) PLATELET COUNT (BEAKER) (test afme=323) 224 K/CU MM 150-450 MEAN PLATELET VOLUME (BEAKER) (test udiw=572) 10.5 fL 9.4-12.3 NUCLEATED RED BLOOD CELLS (BEAKER) (test 0 /100 WBC 0-0 zdfw=516) NEUTROPHILS RELATIVE PERCENT (BEAKER) (test 70 % xzmb=531) LYMPHOCYTES RELATIVE PERCENT (BEAKER) (test 21 % gtpb=338) MONOCYTES RELATIVE PERCENT (BEAKER) (test 7 % fusx=577) EOSINOPHILS RELATIVE PERCENT (BEAKER) (test 2 % pgqb=284) BASOPHILS RELATIVE PERCENT (BEAKER) (test 0 % scyf=309) NEUTROPHILS ABSOLUTE COUNT (BEAKER) (test 6.60 K/ L 1.56-6.13 pbwj=144) LYMPHOCYTES ABSOLUTE COUNT (BEAKER) (test 2.02 K/ L 1.18-3.74 wjkt=948) MONOCYTES ABSOLUTE COUNT (BEAKER) (test 0.63 K/ L 0.24-0.36 klwx=091) EOSINOPHILS ABSOLUTE COUNT (BEAKER) (test 0.15 K/ L 0.04-0.36 kdvf=429) BASOPHILS ABSOLUTE COUNT (BEAKER) (test 0.04 K/ L 0.01-0.08 cwbl=064) IMMATURE GRANULOCYTES-RELATIVE PERCENT (BEAKER) 0 % 0-1 (test ytjf=4649) POCT-GLUCOSE [id number] 20:45:00 Test Item Value Reference Range Comments POC-GLUCOSE METER (BEAKER) 143 mg/dL 70-110 TESTED AT [address] (test wcra=4653) [facility] [address] POCT-GLUCOSE [id number] 20:45:00 Test Item Value Reference Range Comments POC-GLUCOSE METER (BEAKER) 145 mg/dL 70-110 [address]ED [address] (test ykkx=3427) [facility] [address] [id number] 13:37:00 Test Item Value Reference Range Comments PREALBUMIN (BEAKER) (test 10 mg/dL 14-45 Specimen slightly hemolyzed dcma=591) OXYGEN SATURATION, [id number] 12:31:00 Test Item Value Reference Range Comments O2 SATURATION (MEASURED) (BEAKER) (test avjl=6589) 94.5 % [id number] 11:02:00 Test Item Value Reference Range Comments PREALBUMIN (BEAKER) (test uytq=960) 10 mg/dL 14-45 RAD, CHEST, 1 VIEW, NON [id number] 05:14:00while patient is intubated or has chest [...] Verified Date/Time: 05/23/2017 05:14:04 Reading Location: [address] Body Reading Room BASIC METABOLIC [id number] 03:48:00 Test Item Value Reference Range Comments SODIUM (BEAKER) (test 138 meq/L 136-145 hcth=590) POTASSIUM (BEAKER) (test 4.6 meq/L 3.5-5.1 Specimen slightly jpds=691) hemolyzed CHLORIDE (BEAKER) (test 106 meq/L 98-107 fqqe=640) CO2 (BEAKER) (test 20 meq/L 22-29 scfn=444) BLOOD UREA NITROGEN 54 mg/dL 7-21 (BEAKER) (test yfeh=522) CREATININE (BEAKER) (test 2.66 mg/dL 0.57-1.25 Specimen slightly uqjs=731) hemolyzed GLUCOSE RANDOM (BEAKER) 113 mg/dL 70-105 (test lsll=567) CALCIUM (BEAKER) (test 7.9 mg/dL 8.4-10.2 hrtd=477) EGFR (BEAKER) (test 18 mL/min/1.73 sq m ESTIMATED GFR IS NOT rxxn=7537) ACCURATE CREATININE CLEARANCE IN PREDICTING GLOMERULAR FILTRATION RATE. ESTIMATED GFR IS NOT APPLICABLE FOR DIALYSIS PATIENTS. [id number] 03:46:00 Test Item Value Reference Range Comments MAGNESIUM (BEAKER) (test 2.4 mg/dL 1.6-2.6 Specimen slightly hemolyzed lubr=853) [id number] 03:46:00 Test Item Value Reference Range Comments PHOSPHORUS (BEAKER) (test 6.5 mg/dL 2.3-4.7 Specimen slightly hemolyzed dmzw=532) CBC W/PLT COUNT & AUTO [id number] 03:26:00 Test Item Value Reference Range Comments WHITE BLOOD CELL COUNT (BEAKER) (test oujy=013) 10.8 K/ L 3.5-10.5 RED BLOOD CELL COUNT (BEAKER) (test gfkq=095) 3.16 M/ L 3.93-5.22 HEMOGLOBIN (BEAKER) (test zhju=253) 8.2 GM/DL 11.2-15.7 HEMATOCRIT (BEAKER) (test ucuk=092) 26.6 % 34.1-44.9 MEAN CORPUSCULAR VOLUME (BEAKER) (test hyen=152) 84.2 fL 79.4-94.8 MEAN CORPUSCULAR HEMOGLOBIN (BEAKER) (test 25.9 pg 25.6-32.2 suxr=996) MEAN CORPUSCULAR HEMOGLOBIN CONC (BEAKER) (test 30.8 GM/DL 32.2-35.5 wnvt=048) RED CELL DISTRIBUTION WIDTH (BEAKER) (test 15.0 % 11.7-14.4 sibt=459) PLATELET COUNT (BEAKER) (test ltfs=126) 195 K/CU MM 150-450 MEAN PLATELET VOLUME (BEAKER) (test rqfn=306) 10.6 fL 9.4-12.3 NUCLEATED RED BLOOD CELLS (BEAKER) (test 0 /100 WBC 0-0 opkm=031) NEUTROPHILS RELATIVE PERCENT (BEAKER) (test 73 % yerv=438) LYMPHOCYTES RELATIVE PERCENT (BEAKER) (test 18 % xhnx=602) MONOCYTES RELATIVE PERCENT (BEAKER) (test 6 % mfgx=229) EOSINOPHILS RELATIVE PERCENT (BEAKER) (test 2 % zlou=045) BASOPHILS RELATIVE PERCENT (BEAKER) (test 1 % iftj=320) NEUTROPHILS ABSOLUTE COUNT (BEAKER) (test 7.95 K/ L 1.56-6.13 dvgx=541) LYMPHOCYTES ABSOLUTE COUNT (BEAKER) (test 1.93 K/ L 1.18-3.74 vhxs=521) MONOCYTES ABSOLUTE COUNT (BEAKER) (test 0.66 K/ L 0.24-0.36 qzpj=151) EOSINOPHILS ABSOLUTE COUNT (BEAKER) (test 0.18 K/ L 0.04-0.36 xeae=861) BASOPHILS ABSOLUTE COUNT (BEAKER) (test 0.07 K/ L 0.01-0.08 uopf=209) IMMATURE GRANULOCYTES-RELATIVE PERCENT (BEAKER) 0 % 0-1 (test dufg=5954) BLOOD GAS, [id number] 03:18:00 Test Item Value Reference Range Comments PH ARTERIAL (BEAKER) (test rpkw=920) 7.40 7.35-7.45 PCO2 ARTERIAL (BEAKER) (test zlzf=390) 40 mmHg 35-45 PO2 ARTERIAL (BEAKER) (test dwjo=203) 63 mmHg 80-90 O2 SATURATION ARTERIAL (BEAKER) (test gmdf=888) 92.3 % 96.0-97.0 HCO3 ARTERIAL (BEAKER) (test oupd=561) 24 mmol/L 21-29 BASE EXCESS ARTERIAL (BEAKER) (test xtaf=735) -0.6 mmol/L -2.0-3.0 PATIENT TEMPERATURE (BEAKER) (test mjkz=4441) 36.8 C FIO2 (BEAKER) (test ftcp=5373) 36.0 % CALCIUM, [id number] 16:32:00 Test Item Value Reference Range Comments CALCIUM IONIZED (BEAKER) (test kekn=040) 1.11 mmol/L 1.12-1.27 PH, BLOOD (BEAKER) (test ydkx=7842) 7.39 BASIC METABOLIC [id number] 15:43:00 Test Item Value Reference Range Comments SODIUM (BEAKER) (test 139 meq/L 136-145 vbsq=974) POTASSIUM (BEAKER) (test 4.6 meq/L 3.5-5.1 yobw=818) CHLORIDE (BEAKER) (test 106 meq/L 98-107 suud=862) CO2 (BEAKER) (test 21 meq/L 22-29 sgxe=831) BLOOD UREA NITROGEN 54 mg/dL 7-21 (BEAKER) (test ffbi=276) CREATININE (BEAKER) (test 3.08 mg/dL 0.57-1.25 kotd=747) GLUCOSE RANDOM (BEAKER) 116 mg/dL 70-105 (test fygc=337) CALCIUM (BEAKER) (test 8.1 mg/dL 8.4-10.2 enty=195) EGFR (BEAKER) (test 15 mL/min/1.73 sq m ESTIMATED GFR IS NOT rdvy=3434) ACCURATE CREATININE CLEARANCE IN PREDICTING GLOMERULAR FILTRATION RATE. ESTIMATED GFR IS NOT APPLICABLE FOR DIALYSIS PATIENTS. POCT-GLUCOSE [id number] 12:53:00 Test Item Value Reference Range Comments POC-GLUCOSE METER (BEAKER) 118 mg/dL 70-110 TESTED AT [address] (test csfi=7553) [facility] [address] BLOOD GAS, [id number] 10:42:00 Test Item Value Reference Range Comments PH ARTERIAL (BEAKER) (test hqtk=344) 7.40 7.35-7.45 PCO2 ARTERIAL (BEAKER) (test flxr=782) 38 mmHg 35-45 PO2 ARTERIAL (BEAKER) (test vbvp=244) 78 mmHg 80-90 O2 SATURATION ARTERIAL (BEAKER) (test upxs=892) 95.6 % 96.0-97.0 HCO3 ARTERIAL (BEAKER) (test mmst=149) 23 mmol/L 21-29 BASE EXCESS ARTERIAL (BEAKER) (test fuwc=070) -1.4 mmol/L -2.0-3.0 PATIENT TEMPERATURE (BEAKER) (test yecw=7581) 36.9 C FIO2 (BEAKER) (test akbf=8767) 40.0 % POCT-GLUCOSE [id number] 06:46:00 Test Item Value Reference Range Comments POC-GLUCOSE METER (BEAKER) 106 mg/dL 70-110 TESTED AT [address] (test lblz=3738) [place] [id number] RAD, CHEST, 1 VIEW, NON [id number] 05:05:00while patient is intubated or has chest [...] MDRepemily Verified Date/Time: 05/22/2017 05:05:00 Reading Location: [facility] C013Y CT Body ReadingRoom BASIC METABOLIC [id number] 05:00:00 Test Item Value Reference Range Comments SODIUM (BEAKER) (test 138 meq/L 136-145 ixsk=416) POTASSIUM (BEAKER) (test 4.5 meq/L 3.5-5.1 bcbo=050) CHLORIDE (BEAKER) (test 107 meq/L 98-107 mwcf=058) CO2 (BEAKER) (test 21 meq/L 22-29 pawn=811) BLOOD UREA NITROGEN 53 mg/dL 7-21 (BEAKER) (test oeqh=712) CREATININE (BEAKER) (test 3.23 mg/dL 0.57-1.25 hlpq=680) GLUCOSE RANDOM (BEAKER) 126 mg/dL 70-105 (test qamv=004) CALCIUM (BEAKER) (test 8.1 mg/dL 8.4-10.2 kzmw=071) EGFR (BEAKER) (test 15 mL/min/1.73 sq m ESTIMATED GFR IS NOT bmyx=6020) ACCURATE CREATININE CLEARANCE IN PREDICTING GLOMERULAR FILTRATION RATE. ESTIMATED GFR IS NOT APPLICABLE FOR DIALYSIS PATIENTS. [id number] 04:41:00 Test Item Value Reference Range Comments PHOSPHORUS (BEAKER) (test bdjn=431) 6.4 mg/dL 2.3-4.7 [id number] 04:41:00 Test Item Value Reference Range Comments MAGNESIUM (BEAKER) (test omaj=724) 2.6 mg/dL 1.6-2.6 CALCIUM, [id number] 04:26:00 Test Item Value Reference Range Comments CALCIUM IONIZED (BEAKER) (test rkkp=057) 1.09 mmol/L 1.12-1.27 PH, BLOOD (BEAKER) (test oumo=0577) 7.40 OXYGEN SATURATION, [id number] 04:25:00 Test Item Value Reference Range Comments O2 SATURATION (MEASURED) (BEAKER) (test fdax=4600) 77.0 % CBC W/PLT COUNT & AUTO [id number] 04:17:00 Test Item Value Reference Range Comments WHITE BLOOD CELL COUNT (BEAKER) (test mneq=715) 8.9 K/ L 3.5-10.5 RED BLOOD CELL COUNT (BEAKER) (test wdsb=071) 3.14 M/ L 3.93-5.22 HEMOGLOBIN (BEAKER) (test gymv=775) 8.1 GM/DL 11.2-15.7 HEMATOCRIT (BEAKER) (test hblb=143) 26.1 % 34.1-44.9 MEAN CORPUSCULAR VOLUME (BEAKER) (test sptg=755) 83.1 fL 79.4-94.8 MEAN CORPUSCULAR HEMOGLOBIN (BEAKER) (test 25.8 pg 25.6-32.2 vtra=309) MEAN CORPUSCULAR HEMOGLOBIN CONC (BEAKER) (test 31.0 GM/DL 32.2-35.5 qike=056) RED CELL DISTRIBUTION WIDTH (BEAKER) (test 15.3 % 11.7-14.4 ggrr=282) PLATELET COUNT (BEAKER) (test csru=813) 156 K/CU MM 150-450 MEAN PLATELET VOLUME (BEAKER) (test jqzw=663) 10.2 fL 9.4-12.3 NUCLEATED RED BLOOD CELLS (BEAKER) (test 0 /100 WBC 0-0 kgva=315) NEUTROPHILS RELATIVE PERCENT (BEAKER) (test 68 % squl=404) LYMPHOCYTES RELATIVE PERCENT (BEAKER) (test 22 % njqh=971) MONOCYTES RELATIVE PERCENT (BEAKER) (test 8 % ryjb=909) EOSINOPHILS RELATIVE PERCENT (BEAKER) (test 1 % mgxq=849) BASOPHILS RELATIVE PERCENT (BEAKER) (test 1 % lzwm=745) NEUTROPHILS ABSOLUTE COUNT (BEAKER) (test 6.05 K/ L 1.56-6.13 arsg=521) LYMPHOCYTES ABSOLUTE COUNT (BEAKER) (test 1.91 K/ L 1.18-3.74 tsnz=440) MONOCYTES ABSOLUTE COUNT (BEAKER) (test 0.74 K/ L 0.24-0.36 hgax=525) EOSINOPHILS ABSOLUTE COUNT (BEAKER) (test 0.08 K/ L 0.04-0.36 dgjt=036) BASOPHILS ABSOLUTE COUNT (BEAKER) (test 0.05 K/ L 0.01-0.08 huin=165) IMMATURE GRANULOCYTES-RELATIVE PERCENT (BEAKER) 0 % 0-1 (test stfe=8020) LACTIC ACID, ARTERIAL, WHOLE [id number] 00:07:00 Test Item Value Reference Range Comments LACTATE BLOOD ARTERIAL (2) 1.0 mmol/L 0.5-2.2 Specimen slightly hemolyzed (BEAKER) (test rdhk=0361) Effective 08/02/2015: Units/Reference Range ChangeNew: 0.5-2.2 mmol/L Previous: 5 -20 mg/dLPOCT-GLUCOSE [id number] 23:47:00 Test Item Value Reference Range Comments POC-GLUCOSE METER (BEAKER) 180 mg/dL 70-110 TESTED AT [facility] [address] [facility] (test blrb=7543) [facility] [address] BLOOD GAS, [id number] 23:46:00 Test Item Value Reference Range Comments PH ARTERIAL (BEAKER) (test atzr=528) 7.40 7.35-7.45 PCO2 ARTERIAL (BEAKER) (test uwvc=349) 37 mmHg 35-45 PO2 ARTERIAL (BEAKER) (test wrno=699) 136 mmHg 80-90 O2 SATURATION ARTERIAL (BEAKER) (test fqpx=439) 98.7 % 96.0-97.0 HCO3 ARTERIAL (BEAKER) (test derk=049) 22 mmol/L 21-29 BASE EXCESS ARTERIAL (BEAKER) (test scfu=003) -2.4 mmol/L -2.0-3.0 PATIENT TEMPERATURE (BEAKER) (test rvce=2968) 37.0 C FIO2 (BEAKER) (test xnjo=5221) 100.0 % SODIUM NA-STAT [id number] 23:46:00 Test Item Value Reference Range Comments SODIUM (BEAKER) (test byjl=733) 134 meq/L 135-148 GLUCOSE-STAT [id number] 23:46:00 Test Item Value Reference Range Comments GLUCOSE RANDOM (BEAKER) (test qzbq=932) 119 mg/dL 70-110 HGB/HCT (H&H) - STAT [id number] 23:46:00 Test Item Value Reference Range Comments HEMOGLOBIN (BEAKER) (test dlmw=442) 8.8 g/dL 12.0-15.0 HEMATOCRIT (BEAKER) (test wtrs=499) 26.0 % 36.0-45.0 OXYGEN SATURATION, [id number] 23:45:00 Test Item Value Reference Range Comments O2 SATURATION (MEASURED) (BEAKER) (test nixz=8508) 68.1 % POTASSIUM-STAT [id number] 23:45:00 Test Item Value Reference Range Comments POTASSIUM (BEAKER) (test fglb=174) 5.5 meq/L 3.6-5.5 POCT-GLUCOSE [id number] 20:58:00 Test Item Value Reference Range Comments POC-GLUCOSE METER (BEAKER) 133 mg/dL 70-110 TESTED AT [address] (test zkdj=6262) [facility] [address] POCT-GLUCOSE [id number] 17:58:00 Test Item Value Reference Range Comments POC-GLUCOSE METER (BEAKER) 210 mg/dL 70-110 TESTED AT [address] (test faph=0117) [facility] [address] POCT-GLUCOSE [id number] 17:58:00 Test Item Value Reference Range Comments POC-GLUCOSE METER (BEAKER) 211 mg/dL 70-110 TESTED AT [address] (test lbsd=1798) [facility] [address] POCT-GLUCOSE [id number] 17:58:00 Test Item Value Reference Range Comments POC-GLUCOSE METER (BEAKER) 232 mg/dL 70-110 TESTED AT [address] (test fayt=5677) [facility] [address] POCT-GLUCOSE [id number] 17:58:00 Test Item Value Reference Range Comments POC-GLUCOSE METER (BEAKER) 262 mg/dL 70-110 TESTED AT [address] (test xfdr=5324) [place] [id number] BLOOD GAS, [id number] 17:01:00 Test Item Value Reference Range Comments PH ARTERIAL (BEAKER) (test edjo=937) 7.38 7.35-7.45 PCO2 ARTERIAL (BEAKER) (test wxgv=795) 39 mmHg 35-45 PO2 ARTERIAL (BEAKER) (test pcbf=463) 75 mmHg 80-90 O2 SATURATION ARTERIAL (BEAKER) (test czwb=222) 94.9 % 96.0-97.0 HCO3 ARTERIAL (BEAKER) (test ezjy=605) 23 mmol/L 21-29 BASE EXCESS ARTERIAL (BEAKER) (test lwmy=061) -2.5 mmol/L -2.0-3.0 PATIENT TEMPERATURE (BEAKER) (test rujh=9933) 36.8 C FIO2 (BEAKER) (test chxd=8117) 60.0 % POTASSIUM-STAT [id number] 17:00:00 Test Item Value Reference Range Comments POTASSIUM (BEAKER) (test kiwu=980) 4.8 meq/L 3.6-5.5 POCT-GLUCOSE [id number] 15:52:00 Test Item Value Reference Range Comments POC-GLUCOSE METER (BEAKER) 267 mg/dL 70-110 TESTED AT [address] (test kteu=9036) [place] [address] POCT-GLUCOSE [id number] 14:42:00 Test Item Value Reference Range Comments POC-GLUCOSE METER (BEAKER) 231 mg/dL 70-110 TESTED AT [address] (test ornt=6051) [place] [address] BODY FLUID CELL COUNT WITH [id number] 14:41:00 Test Item Value Reference Range Comments APPEARANCE FLUID (BEAKER) (test tkpf=017) Turbid Clear COLOR FLUID (BEAKER) (test tthq=455) Colorless Colorless, Straw RBC FLUID (BEAKER) (test ujyh=186) 2000 /cu mm <=1 ADJUSTED WBC FLUID (BEAKER) (test cvie=6321) 1489 /cu mm <=5 LINING CELLS (BEAKER) (test wqcf=4845) 119 /cu mm <=1 NEUTROPHILS FLUID (BEAKER) (test pozj=2624) 40 % LYMPHS FLUID (BEAKER) (test sgnd=760) 34 % MONO/MACROPHAGE FLUID (BEAKER) (test fsel=039) 26 % EOSINOPHILS FLUID (BEAKER) (test ptjk=082) 0 % BASO FLUID (BEAKER) (test rwex=955) 0 % CONTAINER BODY FLUID (BEAKER) (test foqf=0878) EDTA Tube BASIC METABOLIC [id number] 14:11:00 Test Item Value Reference Range Comments SODIUM (BEAKER) (test 137 meq/L 136-145 eduy=807) POTASSIUM (BEAKER) (test 5.6 meq/L 3.5-5.1 dzrt=863) CHLORIDE (BEAKER) (test 106 meq/L 98-107 pirb=440) CO2 (BEAKER) (test 20 meq/L 22-29 ayba=016) BLOOD UREA NITROGEN 48 mg/dL 7-21 (BEAKER) (test jbdx=466) CREATININE (BEAKER) (test 2.50 mg/dL 0.57-1.25 kair=421) GLUCOSE RANDOM (BEAKER) 221 mg/dL 70-105 (test ukvv=074) CALCIUM (BEAKER) (test 8.1 mg/dL 8.4-10.2 emsv=897) EGFR (BEAKER) (test 20 mL/min/1.73 sq m ESTIMATED GFR IS NOT symp=5367) ACCURATE CREATININE CLEARANCE IN PREDICTING GLOMERULAR FILTRATION RATE. ESTIMATED GFR IS NOT APPLICABLE FOR DIALYSIS PATIENTS. [id number] 14:08:00 Test Item Value Reference Range Comments PHOSPHORUS (BEAKER) (test qhrx=466) 7.2 mg/dL 2.3-4.7 [id number] 14:08:00 Test Item Value Reference Range Comments MAGNESIUM (BEAKER) (test gvsa=420) 2.6 mg/dL 1.6-2.6 POCT-GLUCOSE [id number] 12:49:00 Test Item Value Reference Range Comments POC-GLUCOSE METER (BEAKER) 224 mg/dL 70-110 TESTED AT [facility] [address] (test ucuz=4651) [facility] [address] POCT-GLUCOSE [id number] 12:49:00 Test Item Value Reference Range Comments POC-GLUCOSE METER (BEAKER) 248 mg/dL 70-110 TESTED AT [facility] [address] (test orih=7359) [facility] [address] RAD, CHEST, 1 VIEW, NON [id number] 12:32:00Reason for exam:->re- intubationShould this be performed [...] Verified Date/Time: 05/21/2017 12:32:08 Reading Location: [facility] Radiology Reading Room POTASSIUM-STAT [id number] 12:28:00 Test Item Value Reference Range Comments POTASSIUM (BEAKER) (test njnb=902) 5.5 meq/L 3.6-5.5 BLOOD GAS, [id number] 12:28:00 Test Item Value Reference Range Comments PH ARTERIAL (BEAKER) (test qcva=175) 7.32 7.35-7.45 PCO2 ARTERIAL (BEAKER) (test iaqb=216) 45 mmHg 35-45 PO2 ARTERIAL (BEAKER) (test vvoh=556) 304 mmHg 80-90 O2 SATURATION ARTERIAL (BEAKER) (test lzmw=427) 99.7 % 96.0-97.0 HCO3 ARTERIAL (BEAKER) (test rvac=135) 22 mmol/L 21-29 BASE EXCESS ARTERIAL (BEAKER) (test ieag=936) -3.7 mmol/L -2.0-3.0 PATIENT TEMPERATURE (BEAKER) (test wuho=2113) 37.0 C FIO2 (BEAKER) (test zsah=2131) 100.0 % BLOOD GAS, [id number] 10:53:00 Test Item Value Reference Range Comments PH ARTERIAL (BEAKER) (test emph=461) 7.36 7.35-7.45 PCO2 ARTERIAL (BEAKER) (test qiww=244) 35 mmHg 35-45 PO2 ARTERIAL (BEAKER) (test pxyt=512) 40 mmHg 80-90 O2 SATURATION ARTERIAL (BEAKER) (test mwgu=906) 82.3 % 96.0-97.0 HCO3 ARTERIAL (BEAKER) (test vvng=294) 20 mmol/L 21-29 BASE EXCESS ARTERIAL (BEAKER) (test bbfe=856) -5.9 mmol/L -2.0-3.0 PATIENT TEMPERATURE (BEAKER) (test jvdm=0782) 33.7 C FIO2 (BEAKER) (test hbcb=4637) 36.0 % RAD, CHEST, 1 VIEW, NON [id number] 08:46:00while patient is intubated or has chest [...] Date/ Time: 05/21/2017 08:46:27 Reading Location: [facility] Radiology Reading Room BLOOD GAS, [id number] 05:41:00 Test Item Value Reference Range Comments PH ARTERIAL (BEAKER) (test tlgj=892) 7.33 7.35-7.45 PCO2 ARTERIAL (BEAKER) (test lsvt=513) 40 mm Hg 35-45 PO2 ARTERIAL (BEAKER) (test buws=318) 106 mm Hg 80-90 O2 SATURATION ARTERIAL (BEAKER) (test cqcx=408) 97.5 % 96.0-97.0 HCO3 ARTERIAL (BEAKER) (test gthf=322) 21 mmol/L 21-29 BASE EXCESS ARTERIAL (BEAKER) (test jhpq=345) -5.1 mmol/L -2.0-3.0 PATIENT TEMPERATURE (BEAKER) (test zoyv=2152) 37.0 FIO2 (BEAKER) (test desa=7086) 40 CALCIUM, [id number] 04:35:00 Test Item Value Reference Range Comments CALCIUM IONIZED (BEAKER) (test tpmm=755) 1.13 mmol/L 1.12-1.27 PH, BLOOD (BEAKER) (test wtkb=7794) 7.32 BLOOD GAS, [id number] 04:28:00 Test Item Value Reference Range Comments PH ARTERIAL (BEAKER) (test rcrx=164) 7.32 7.35-7.45 PCO2 ARTERIAL (BEAKER) (test wlhq=042) 40 mmHg 35-45 PO2 ARTERIAL (BEAKER) (test lfrd=617) 100 mmHg 80-90 O2 SATURATION ARTERIAL (BEAKER) (test opio=639) 97.2 % 96.0-97.0 HCO3 ARTERIAL (BEAKER) (test afqz=376) 20 mmol/L 21-29 BASE EXCESS ARTERIAL (BEAKER) (test pixb=427) -5.7 mmol/L -2.0-3.0 PATIENT TEMPERATURE (BEAKER) (test vjvg=3722) 36.9 C FIO2 (BEAKER) (test biea=2782) 40.0 % [id number] 04:20:00 Test Item Value Reference Range Comments PHOSPHORUS (BEAKER) (test ypzv=602) 6.2 mg/dL 2.3-4.7 [id number] 04:20:00 Test Item Value Reference Range Comments MAGNESIUM (BEAKER) (test qbqe=592) 2.4 mg/dL 1.6-2.6 HEPATIC FUNCTION [id number] 04:20:00 Test Item Value Reference Range Comments TOTAL PROTEIN (BEAKER) (test gajz=843) 4.8 gm/dL 6.0-8.3 ALBUMIN (BEAKER) (test rete=4707) 2.5 g/dL 3.5-5.0 BILIRUBIN TOTAL (BEAKER) (test emuy=402) 0.7 mg/dL 0.2-1.2 BILIRUBIN DIRECT (BEAKER) (test uyiv=145) 0.3 mg/dL 0.1-0.5 ALKALINE PHOSPHATASE (BEAKER) (test zukj=621) 96 U/L 40-150 AST (SGOT) (BEAKER) (test mifb=759) 31 U/L 5-34 ALT (SGPT) (BEAKER) (test iatf=464) 11 U/L 6-55 BASIC METABOLIC [id number] 04:20:00 Test Item Value Reference Range Comments SODIUM (BEAKER) (test 134 meq/L 136-145 xzop=182) POTASSIUM (BEAKER) (test 5.0 meq/L 3.5-5.1 pncv=779) CHLORIDE (BEAKER) (test 105 meq/L 98-107 rscg=031) CO2 (BEAKER) (test 18 meq/L 22-29 pcfr=149) BLOOD UREA NITROGEN 45 mg/dL 7-21 (BEAKER) (test drbg=096) CREATININE (BEAKER) (test 1.91 mg/dL 0.57-1.25 ceck=481) GLUCOSE RANDOM (BEAKER) 247 mg/dL 70-105 (test fhrk=928) CALCIUM (BEAKER) (test 7.9 mg/dL 8.4-10.2 ukjx=687) EGFR (BEAKER) (test 27 mL/min/1.73 sq m ESTIMATED GFR IS NOT prff=9423) ACCURATE CREATININE CLEARANCE IN PREDICTING GLOMERULAR FILTRATION RATE. ESTIMATED GFR IS NOT APPLICABLE FOR DIALYSIS PATIENTS. OXYGEN SATURATION, [id number] 04:18:00 Test Item Value Reference Range Comments O2 SATURATION (MEASURED) (BEAKER) (test zvwq=7576) 68.0 % LACTIC ACID, ARTERIAL, WHOLE [id number] 04:12:00 Test Item Value Reference Range Comments LACTATE BLOOD ARTERIAL (2) (BEAKER) (test 1.0 mmol/L 0.5-2.2 uift=6635) Effective 08/02/2015: Units/Reference Range ChangeNew: 0.5-2.2 mmol/L Previous: 5 -20 mg/dLCBC W/PLT COUNT & AUTO [id number] 04:00:00 Test Item Value Reference Range Comments WHITE BLOOD CELL COUNT (BEAKER) (test lkcc=822) 12.0 K/ L 3.5-10.5 RED BLOOD CELL COUNT (BEAKER) (test lqqc=803) 3.32 M/ L 3.93-5.22 HEMOGLOBIN (BEAKER) (test ljyr=090) 8.8 GM/DL 11.2-15.7 HEMATOCRIT (BEAKER) (test fjns=688) 28.3 % 34.1-44.9 MEAN CORPUSCULAR VOLUME (BEAKER) (test reti=474) 85.2 fL 79.4-94.8 MEAN CORPUSCULAR HEMOGLOBIN (BEAKER) (test 26.5 pg 25.6-32.2 ykzv=646) MEAN CORPUSCULAR HEMOGLOBIN CONC (BEAKER) (test 31.1 GM/DL 32.2-35.5 cmut=134) RED CELL DISTRIBUTION WIDTH (BEAKER) (test 15.0 % 11.7-14.4 qrwr=936) PLATELET COUNT (BEAKER) (test wgdp=573) 157 K/CU MM 150-450 MEAN PLATELET VOLUME (BEAKER) (test clpp=559) 10.7 fL 9.4-12.3 NUCLEATED RED BLOOD CELLS (BEAKER) (test 0 /100 WBC 0-0 unbg=359) NEUTROPHILS RELATIVE PERCENT (BEAKER) (test 91 % xded=540) LYMPHOCYTES RELATIVE PERCENT (BEAKER) (test 4 % czvv=933) MONOCYTES RELATIVE PERCENT (BEAKER) (test 4 % nyny=208) EOSINOPHILS RELATIVE PERCENT (BEAKER) (test 0 % uyyk=565) BASOPHILS RELATIVE PERCENT (BEAKER) (test 0 % wmiy=689) NEUTROPHILS ABSOLUTE COUNT (BEAKER) (test 10.95 K/ L 1.56-6.13 kflm=417) LYMPHOCYTES ABSOLUTE COUNT (BEAKER) (test 0.52 K/ L 1.18-3.74 vrqs=350) MONOCYTES ABSOLUTE COUNT (BEAKER) (test 0.42 K/ L 0.24-0.36 eahx=943) EOSINOPHILS ABSOLUTE COUNT (BEAKER) (test 0.01 K/ L 0.04-0.36 llrx=998) BASOPHILS ABSOLUTE COUNT (BEAKER) (test 0.05 K/ L 0.01-0.08 ngre=880) IMMATURE GRANULOCYTES-RELATIVE PERCENT (BEAKER) 0 % 0-1 (test yvro=5092) BLOOD GAS, [id number] 00:06:00 Test Item Value Reference Range Comments PH ARTERIAL (BEAKER) (test pljm=660) 7.26 7.35-7.45 PCO2 ARTERIAL (BEAKER) (test pcce=403) 52 mmHg 35-45 PO2 ARTERIAL (BEAKER) (test otqg=996) 88 mmHg 80-90 O2 SATURATION ARTERIAL (BEAKER) (test qdxi=559) 95.7 % 96.0-97.0 HCO3 ARTERIAL (BEAKER) (test zial=952) 23 mmol/L 21-29 BASE EXCESS ARTERIAL (BEAKER) (test aess=067) -4.0 mmol/L -2.0-3.0 PATIENT TEMPERATURE (BEAKER) (test qffd=4605) 36.4 C FIO2 (BEAKER) (test hkjg=4221) 40.0 % [id number] 18:55:00 Test Item Value Reference Range Comments PHOSPHORUS (BEAKER) (test yajl=918) 4.8 mg/dL 2.3-4.7 [id number] 18:55:00 Test Item Value Reference Range Comments MAGNESIUM (BEAKER) (test ivov=620) 2.3 mg/dL 1.6-2.6 BASIC METABOLIC [id number] 18:55:00 Test Item Value Reference Range Comments SODIUM (BEAKER) (test 136 meq/L 136-145 cyut=651) POTASSIUM (BEAKER) (test 4.5 meq/L 3.5-5.1 pmmg=383) CHLORIDE (BEAKER) (test 108 meq/L 98-107 vvpl=556) CO2 (BEAKER) (test 21 meq/L 22-29 gwqv=222) BLOOD UREA NITROGEN 39 mg/dL 7-21 (BEAKER) (test pfmd=070) CREATININE (BEAKER) (test 1.58 mg/dL 0.57-1.25 xypk=166) GLUCOSE RANDOM (BEAKER) 172 mg/dL 70-105 (test tdzl=208) CALCIUM (BEAKER) (test 7.9 mg/dL 8.4-10.2 xmio=646) EGFR (BEAKER) (test 33 mL/min/1.73 sq m ESTIMATED GFR IS NOT qupi=3812) ACCURATE CREATININE CLEARANCE IN PREDICTING GLOMERULAR FILTRATION RATE. ESTIMATED GFR IS NOT APPLICABLE FOR DIALYSIS PATIENTS. LACTIC ACID, ARTERIAL, WHOLE [id number] 18:53:00 Test Item Value Reference Range Comments LACTATE BLOOD ARTERIAL (2) 0.9 mmol/L 0.5-2.2 Specimen slightly hemolyzed (BEAKER) (test yofw=4030) Effective 08/02/2015: Units/Reference Range ChangeNew: 0.5-2.2 mmol/L Previous: 5 -20 mg/dLRAD, CHEST, 1 VIEW, NON [id number] 18:44:00Reason for exam:-> postop cardiacShould this be [...] MDReport Verified Date/Time: 2017 18:44:30 Reading Location: [facility] C0[facility] Consult Reading Room Electronically signed by: LISA LI M.D. on05/20/2017 06:44 PMCBC W/PLT COUNT & AUTO [id number] 18:38:00 Test Item Value Reference Range Comments WHITE BLOOD CELL COUNT (BEAKER) (test fihl=860) 8.7 K/ L 3.5-10.5 RED BLOOD CELL COUNT (BEAKER) (test inno=898) 3.33 M/ L 3.93-5.22 HEMOGLOBIN (BEAKER) (test nobx=478) 8.7 GM/DL 11.2-15.7 HEMATOCRIT (BEAKER) (test rppi=418) 27.9 % 34.1-44.9 MEAN CORPUSCULAR VOLUME (BEAKER) (test bmqs=301) 83.8 fL 79.4-94.8 MEAN CORPUSCULAR HEMOGLOBIN (BEAKER) (test 26.1 pg 25.6-32.2 eycu=415) MEAN CORPUSCULAR HEMOGLOBIN CONC (BEAKER) (test 31.2 GM/DL 32.2-35.5 ikge=140) RED CELL DISTRIBUTION WIDTH (BEAKER) (test 14.9 % 11.7-14.4 xppv=039) PLATELET COUNT (BEAKER) (test qonq=539) 137 K/CU MM 150-450 MEAN PLATELET VOLUME (BEAKER) (test jkbv=521) 10.2 fL 9.4-12.3 NUCLEATED RED BLOOD CELLS (BEAKER) (test 0 /100 WBC 0-0 jter=281) NEUTROPHILS RELATIVE PERCENT (BEAKER) (test 79 % nhlw=058) LYMPHOCYTES RELATIVE PERCENT (BEAKER) (test 12 % zhjb=202) MONOCYTES RELATIVE PERCENT (BEAKER) (test 7 % acse=153) EOSINOPHILS RELATIVE PERCENT (BEAKER) (test 1 % qzjx=979) BASOPHILS RELATIVE PERCENT (BEAKER) (test 1 % djir=330) NEUTROPHILS ABSOLUTE COUNT (BEAKER) (test 6.83 K/ L 1.56-6.13 bsaj=802) LYMPHOCYTES ABSOLUTE COUNT (BEAKER) (test 1.06 K/ L 1.18-3.74 tzqa=680) MONOCYTES ABSOLUTE COUNT (BEAKER) (test 0.56 K/ L 0.24-0.36 jxxs=544) EOSINOPHILS ABSOLUTE COUNT (BEAKER) (test 0.12 K/ L 0.04-0.36 rygf=378) BASOPHILS ABSOLUTE COUNT (BEAKER) (test 0.04 K/ L 0.01-0.08 zqyz=690) IMMATURE GRANULOCYTES-RELATIVE PERCENT (BEAKER) 1 % 0-1 (test qgmt=1613) OXYGEN SATURATION, [id number] 18:36:00 Test Item Value Reference Range Comments O2 SATURATION (MEASURED) (BEAKER) (test tiqt=6073) 72.5 % From distal port of IJ central venous catheterSODIUM NA-STAT [id number] 18:30 :00 Test Item Value Reference Range Comments SODIUM (BEAKER) (test yyjv=738) 132 meq/L 135-148 HGB/HCT (H&H) - STAT [id number] 18:30:00 Test Item Value Reference Range Comments HEMOGLOBIN (BEAKER) (test nuov=147) 9.4 g/dL 12.0-15.0 HEMATOCRIT (BEAKER) (test vwrk=615) 28.0 % 36.0-45.0 GLUCOSE-STAT [id number] 18:30:00 Test Item Value Reference Range Comments GLUCOSE RANDOM (BEAKER) (test pepw=594) 159 mg/dL 70-110 BLOOD GAS, [id number] 18:30:00 Test Item Value Reference Range Comments PH ARTERIAL (BEAKER) (test jwdh=900) 7.34 7.35-7.45 PCO2 ARTERIAL (BEAKER) (test vjhg=854) 43 mmHg 35-45 PO2 ARTERIAL (BEAKER) (test uckx=027) 76 mmHg 80-90 O2 SATURATION ARTERIAL (BEAKER) (test bwet=871) 94.9 % 96.0-97.0 HCO3 ARTERIAL (BEAKER) (test epka=308) 23 mmol/L 21-29 BASE EXCESS ARTERIAL (BEAKER) (test gyzo=452) -2.6 mmol/L -2.0-3.0 PATIENT TEMPERATURE (BEAKER) (test gemb=7997) 36.4 C FIO2 (BEAKER) (test lppo=8800) 60.0 % CALCIUM, [id number] 18:30:00 Test Item Value Reference Range Comments CALCIUM IONIZED (BEAKER) (test jgrc=262) 0.94 mmol/L 1.12-1.27 PH, BLOOD (BEAKER) (test jhgu=4766) 7.34 POTASSIUM-STAT [id number] 18:28:00 Test Item Value Reference Range Comments POTASSIUM (BEAKER) (test mete=118) 4.4 meq/L 3.6-5.5 THROMBOELASTOGRAPH ([id number] 18:11:00 Test Item Value Reference Range Comments TEG ACTIVATED CLOTTING TIME (BEAKER) (test 6.7 minutes 4.0-7.0 whpo=2584) TEG FIBRINOGEN ACTIVITY (BEAKER) (test 66.6 degrees 61.0-73.0 ppil=5187) TEG PLT. AGGREGATION (BEAKER) (test bflq=5658) 62.4 MM 55.0-65.0 TEG FIBRINOLYSIS (BEAKER) (test hvyt=5487) 0.0 % 0.0-5.0 TGH ACTIVATED CLOTTING TIME (BEAKER) (test 6.7 minutes 4.0-7.0 sbkc=1142) [facility] FIBRINOGEN ACTIVITY ([facility]) (test 69.0 degrees 61.0-73.0 ihaw=6678) TGH PLT. AGGREGATION ([facility]) (test xymo=2384) 62.8 MM 55.0-65.0 TGH FIBRINOLYSIS ([facility]) (test hmbj=0300) 0.0 % 0.0-5.0 [id number] 17:53:00 Test Item Value Reference Range Comments ACTIVATED CLOTTING TIME 103 sec TESTED AT [address] [facility] (test icqo=550) [place] [address] [id number] 17:53:00 Test Item Value Reference Range Comments ACTIVATED CLOTTING TIME 466 sec TESTED AT [address] [facility]) (test llam=638) [place] [address] [id number] 17:53:00 Test Item Value Reference Range Comments ACTIVATED CLOTTING TIME 543 sec TESTED AT [address] ([facility]) (test jjxf=649) [place] [address] [id number] 17:53:00 Test Item Value Reference Range Comments ACTIVATED CLOTTING TIME 549 sec TESTED AT [address] [facility]) (test deja=317) [place] [address] [id number] 17:53:00 Test Item Value Reference Range Comments ACTIVATED CLOTTING TIME 632 sec TESTED AT [address] [facility]) (test pfbl=314) [place] [address] [id number] 17:53:00 Test Item Value Reference Range Comments ACTIVATED CLOTTING TIME 494 sec TESTED AT [address] ([facility]) (test gibz=090) [place] [address] [id number] 17:53:00 Test Item Value Reference Range Comments ACTIVATED CLOTTING TIME 587 sec TESTED AT [address] ([facility]) (test nwqh=025) [place] [address] [id number] 17:53:00 Test Item Value Reference Range Comments ACTIVATED CLOTTING TIME 626 sec TESTED AT [address] ([facility]) (test wifp=262) [place] [address] [id number] 17:52:00 Test Item Value Reference Range Comments ACTIVATED CLOTTING TIME 808 sec TESTED AT [facility] [address] (BEAKER) (test saxt=649) [place] [address] [id number] 16:54:00 Test Item Value Reference Range Comments PARTIAL THROMBOPLASTIN TIME (BEAKER) (test 40.2 seconds 22.5-36.0 vurk=020) [id number] 16:53:00 Test Item Value Reference Range Comments FIBRINOGEN LEVEL (BEAKER) (test iwle=014) 306 mg/dl 225-434 PROTHROMBIN [id number] 16:50:00 Test Item Value Reference Range Comments PROTIME (BEAKER) (test lkxy=589) 19.6 seconds 11.7-14.7 INR (BEAKER) (test wrun=453) 1.7 <=5.9 RECOMMENDED COUMADIN/WARFARIN INR THERAPY RANGESSTANDARD DOSE: 2.0 - 3.0 Includes: PROPHYLAXIS forvenous thrombosis, systemic embolization; TREATMENT for venous thrombosis and/or pulmonary embolus.HIGH RISK: Target INR is 2.5-3.5 for patients with mechanical heart valves.PLATELET [id number] 16:45:00 Test Item Value Reference Range Comments PLATELET COUNT (BEAKER) (test dyvu=743) 136 K/CU MM 150-450 POTASSIUM-STAT [id number] 16:15:00 Test Item Value Reference Range Comments POTASSIUM (BEAKER) (test isly=316) 4.9 meq/L 3.6-5.5 BLOOD GAS, [id number] 16:15:00 Test Item Value Reference Range Comments PH ARTERIAL (BEAKER) (test qdof=734) 7.39 7.35-7.45 PCO2 ARTERIAL (BEAKER) (test jhpy=308) 42 mmHg 35-45 PO2 ARTERIAL (BEAKER) (test yefe=204) 201 mmHg 80-90 O2 SATURATION ARTERIAL (BEAKER) (test gbfh=854) 99.4 % 96.0-97.0 HCO3 ARTERIAL (BEAKER) (test sabl=635) 25 mmol/L 21-29 BASE EXCESS ARTERIAL (BEAKER) (test nwou=468) -0.3 mmol/L -2.0-3.0 PATIENT TEMPERATURE (BEAKER) (test darh=6625) 36.3 C FIO2 (BEAKER) (test qzlp=0055) 100.0 % SODIUM NA-STAT [id number] 16:15:00 Test Item Value Reference Range Comments SODIUM (BEAKER) (test ndnl=324) 131 meq/L 135-148 GLUCOSE-STAT [id number] 16:15:00 Test Item Value Reference Range Comments GLUCOSE RANDOM (BEAKER) (test dwsw=430) 198 mg/dL 70-110 HGB/HCT (H&H) - STAT [id number] 16:15:00 Test Item Value Reference Range Comments HEMOGLOBIN (BEAKER) (test xetu=129) 7.5 g/dL 12.0-15.0 HEMATOCRIT (BEAKER) (test zddv=772) 22.0 % 36.0-45.0 CALCIUM, [id number] 16:14:00 Test Item Value Reference Range Comments CALCIUM IONIZED (BEAKER) (test vrzy=170) 0.91 mmol/L 1.12-1.27 PH, BLOOD (BEAKER) (test fmyo=5810) 7.39 BLOOD GAS, [id number] 15:39:00 Test Item Value Reference Range Comments PH ARTERIAL (BEAKER) (test vcnw=337) 7.44 7.35-7.45 PCO2 ARTERIAL (BEAKER) (test zpdl=274) 38 mmHg 35-45 PO2 ARTERIAL (BEAKER) (test foak=518) 298 mmHg 80-90 O2 SATURATION ARTERIAL (BEAKER) (test lgpo=113) 99.7 % 96.0-97.0 HCO3 ARTERIAL (BEAKER) (test iubs=144) 25 mmol/L 21-29 BASE EXCESS ARTERIAL (BEAKER) (test ibas=153) 0.7 mmol/L -2.0-3.0 PATIENT TEMPERATURE (BEAKER) (test rpsb=0518) 36.2 C FIO2 (BEAKER) (test ycjj=0121) 70.0 % SODIUM NA-STAT [id number] 15:39:00 Test Item Value Reference Range Comments SODIUM (BEAKER) (test hwix=451) 131 meq/L 135-148 GLUCOSE-STAT [id number] 15:39:00 Test Item Value Reference Range Comments GLUCOSE RANDOM (BEAKER) (test yamb=582) 186 mg/dL 70-110 HGB/HCT (H&H) - STAT [id number] 15:39:00 Test Item Value Reference Range Comments HEMOGLOBIN (BEAKER) (test xara=240) 7.5 g/dL 12.0-15.0 HEMATOCRIT (BEAKER) (test bhbz=236) 22.0 % 36.0-45.0 POTASSIUM-STAT [id number] 15:38:00 Test Item Value Reference Range Comments POTASSIUM (BEAKER) (test hxdj=873) 5.3 meq/L 3.6-5.5 BLOOD GAS, [id number] 15:24:00 Test Item Value Reference Range Comments PH ARTERIAL (BEAKER) (test kepl=614) 7.47 7.35-7.45 PCO2 ARTERIAL (BEAKER) (test emxd=130) 37 mmHg 35-45 PO2 ARTERIAL (BEAKER) (test pxgi=899) 334 mmHg 80-90 O2 SATURATION ARTERIAL (BEAKER) (test abac=830) 99.8 % 96.0-97.0 HCO3 ARTERIAL (BEAKER) (test jein=370) 26 mmol/L 21-29 BASE EXCESS ARTERIAL (BEAKER) (test ymrz=247) 2.2 mmol/L -2.0-3.0 PATIENT TEMPERATURE (BEAKER) (test gbji=2157) 36.2 C FIO2 (BEAKER) (test gjjr=5133) 70.0 % SODIUM NA-STAT [id number] 15:24:00 Test Item Value Reference Range Comments SODIUM (BEAKER) (test ynoi=907) 130 meq/L 135-148 GLUCOSE-STAT [id number] 15:24:00 Test Item Value Reference Range Comments GLUCOSE RANDOM (BEAKER) (test emow=043) 189 mg/dL 70-110 HGB/HCT (H&H) - STAT [id number] 15:24:00 Test Item Value Reference Range Comments HEMOGLOBIN (BEAKER) (test zrxa=852) 6.7 g/dL 12.0-15.0 HEMATOCRIT (BEAKER) (test zwer=624) 20.0 % 36.0-45.0 POTASSIUM-STAT [id number] 15:23:00 Test Item Value Reference Range Comments POTASSIUM (BEAKER) (test odyw=134) 5.4 meq/L 3.6-5.5 BLOOD GAS, [id number] 15:07:00 Test Item Value Reference Range Comments PH ARTERIAL (BEAKER) (test fchd=503) 7.43 7.35-7.45 PCO2 ARTERIAL (BEAKER) (test pvwt=510) 41 mmHg 35-45 PO2 ARTERIAL (BEAKER) (test ueyl=539) 365 mmHg 80-90 O2 SATURATION ARTERIAL (BEAKER) (test ishm=629) 99.8 % 96.0-97.0 HCO3 ARTERIAL (BEAKER) (test jczi=230) 27 mmol/L 21-29 BASE EXCESS ARTERIAL (BEAKER) (test kcjt=292) 1.9 mmol/L -2.0-3.0 PATIENT TEMPERATURE (BEAKER) (test vmsw=8881) 35.8 C FIO2 (BEAKER) (test tijf=4210) 70.0 % SODIUM NA-STAT [id number] 15:07:00 Test Item Value Reference Range Comments SODIUM (BEAKER) (test cvfc=766) 129 meq/L 135-148 GLUCOSE-STAT [id number] 15:07:00 Test Item Value Reference Range Comments GLUCOSE RANDOM (BEAKER) (test rwcv=091) 172 mg/dL 70-110 HGB/HCT (H&H) - STAT [id number] 15:07:00 Test Item Value Reference Range Comments HEMOGLOBIN (BEAKER) (test sjlp=164) 7.1 g/dL 12.0-15.0 HEMATOCRIT (BEAKER) (test prlf=463) 21.0 % 36.0-45.0 POTASSIUM-STAT [id number] 15:04:00 Test Item Value Reference Range Comments POTASSIUM (BEAKER) (test uhrt=394) 5.0 meq/L 3.6-5.5 BLOOD GAS, [id number] 14:21:00 Test Item Value Reference Range Comments PH ARTERIAL (BEAKER) (test umld=918) 7.43 7.35-7.45 PCO2 ARTERIAL (BEAKER) (test fdrc=343) 38 mmHg 35-45 PO2 ARTERIAL (BEAKER) (test reag=813) 360 mmHg 80-90 O2 SATURATION ARTERIAL (BEAKER) (test lbdw=450) 99.8 % 96.0-97.0 HCO3 ARTERIAL (BEAKER) (test kyhd=374) 27 mmol/L 21-29 BASE EXCESS ARTERIAL (BEAKER) (test eyti=663) 0.3 mmol/L -2.0-3.0 PATIENT TEMPERATURE (BEAKER) (test phqm=6834) 28.9 C FIO2 (BEAKER) (test nkov=4823) 70.0 % SODIUM NA-STAT [id number] 14:21:00 Test Item Value Reference Range Comments SODIUM (BEAKER) (test actc=095) 133 meq/L 135-148 GLUCOSE-STAT [id number] 14:21:00 Test Item Value Reference Range Comments GLUCOSE RANDOM (BEAKER) (test dmlz=384) 160 mg/dL 70-110 HGB/HCT (H&H) - STAT [id number] 14:21:00 Test Item Value Reference Range Comments HEMOGLOBIN (BEAKER) (test bmgx=706) 7.5 g/dL 12.0-15.0 HEMATOCRIT (BEAKER) (test rocs=017) 22.0 % 36.0-45.0 POTASSIUM-STAT [id number] 14:20:00 Test Item Value Reference Range Comments POTASSIUM (BEAKER) (test ildc=059) 4.7 meq/L 3.6-5.5 BLOOD GAS, [id number] 13:58:00 Test Item Value Reference Range Comments PH ARTERIAL (BEAKER) (test rhob=358) 7.43 7.35-7.45 PCO2 ARTERIAL (BEAKER) (test zrpu=187) 37 mmHg 35-45 PO2 ARTERIAL (BEAKER) (test cdwg=256) 448 mmHg 80-90 O2 SATURATION ARTERIAL (BEAKER) (test nlrl=538) 99.9 % 96.0-97.0 HCO3 ARTERIAL (BEAKER) (test hwzh=303) 26 mmol/L 21-29 BASE EXCESS ARTERIAL (BEAKER) (test dlap=120) -0.1 mmol/L -2.0-3.0 PATIENT TEMPERATURE (BEAKER) (test ueao=1711) 29.2 C FIO2 (BEAKER) (test mkok=3357) 80.0 % SODIUM NA-STAT [id number] 13:58:00 Test Item Value Reference Range Comments SODIUM (BEAKER) (test spys=300) 132 meq/L 135-148 GLUCOSE-STAT [id number] 13:58:00 Test Item Value Reference Range Comments GLUCOSE RANDOM (BEAKER) (test zurf=740) 166 mg/dL 70-110 HGB/HCT (H&H) - STAT [id number] 13:58:00 Test Item Value Reference Range Comments HEMOGLOBIN (BEAKER) (test kykg=395) 7.5 g/dL 12.0-15.0 HEMATOCRIT (BEAKER) (test gprs=150) 22.0 % 36.0-45.0 POTASSIUM-STAT [id number] 13:57:00 Test Item Value Reference Range Comments POTASSIUM (BEAKER) (test elgd=354) 4.7 meq/L 3.6-5.5 BLOOD GAS, [id number] 13:35:00 Test Item Value Reference Range Comments PH ARTERIAL (BEAKER) (test klix=004) 7.51 7.35-7.45 PCO2 ARTERIAL (BEAKER) (test mrio=493) 33 mmHg 35-45 PO2 ARTERIAL (BEAKER) (test ekfb=101) 453 mmHg 80-90 O2 SATURATION ARTERIAL (BEAKER) (test bitj=602) 99.9 % 96.0-97.0 HCO3 ARTERIAL (BEAKER) (test tjfe=781) 28 mmol/L 21-29 BASE EXCESS ARTERIAL (BEAKER) (test iysd=895) 2.7 mmol/L -2.0-3.0 PATIENT TEMPERATURE (BEAKER) (test lzsv=3595) 29.2 C FIO2 (BEAKER) (test txsk=0006) 80.0 % GLUCOSE-STAT [id number] 13:35:00 Test Item Value Reference Range Comments GLUCOSE RANDOM (BEAKER) (test zvug=837) 130 mg/dL 70-110 HGB/HCT (H&H) - STAT [id number] 13:35:00 Test Item Value Reference Range Comments HEMOGLOBIN (BEAKER) (test yeqb=051) 6.7 g/dL 12.0-15.0 HEMATOCRIT (BEAKER) (test pzrs=917) 20.0 % 36.0-45.0 SODIUM NA-STAT [id number] 13:35:00 Test Item Value Reference Range Comments SODIUM (BEAKER) (test tzbu=235) 133 meq/L 135-148 POTASSIUM-STAT [id number] 13:34:00 Test Item Value Reference Range Comments POTASSIUM (BEAKER) (test fsmf=897) 4.2 meq/L 3.6-5.5 BLOOD GAS, [id number] 13:16:00 Test Item Value Reference Range Comments PH ARTERIAL (BEAKER) (test svmy=330) 7.42 7.35-7.45 PCO2 ARTERIAL (BEAKER) (test livs=067) 34 mmHg 35-45 PO2 ARTERIAL (BEAKER) (test biyr=475) 375 mmHg 80-90 O2 SATURATION ARTERIAL (BEAKER) (test rkdm=467) 99.8 % 96.0-97.0 HCO3 ARTERIAL (BEAKER) (test qswd=286) 23 mmol/L 21-29 BASE EXCESS ARTERIAL (BEAKER) (test sorv=885) -2.5 mmol/L -2.0-3.0 PATIENT TEMPERATURE (BEAKER) (test ghwy=7282) 31.5 C FIO2 (BEAKER) (test jqfh=5590) 80.0 % SODIUM NA-STAT [id number] 13:16:00 Test Item Value Reference Range Comments SODIUM (BEAKER) (test neey=682) 133 meq/L 135-148 HGB/HCT (H&H) - STAT [id number] 13:16:00 Test Item Value Reference Range Comments HEMOGLOBIN (BEAKER) (test kryw=268) 6.3 g/dL 12.0-15.0 HEMATOCRIT (BEAKER) (test otex=867) 19.0 % 36.0-45.0 CALCIUM, [id number] 13:15:00 Test Item Value Reference Range Comments CALCIUM IONIZED (BEAKER) (test pwek=350) 0.98 mmol/L 1.12-1.27 PH, BLOOD (BEAKER) (test efcl=1606) 7.34 BLOOD GAS, [id number] 13:15:00 Test Item Value Reference Range Comments PH VENOUS (BEAKER) (test oemr=430) 7.39 7.32-7.42 PCO2 VENOUS (BEAKER) (test lhgx=775) 38 mmHg 41-51 PO2 VENOUS (BEAKER) (test wltg=559) 43 mmHg 25-40 O2 SATURATION VENOUS (BEAKER) (test kzac=107) 90.0 % 40.0-70.0 HCO3 VENOUS (BEAKER) (test wmgs=372) 24 mmol/L 21-29 BASE EXCESS VENOUS (BEAKER) (test elai=581) -2.1 mmol/L -2.0-3.0 PATIENT TEMPERATURE (BEAKER) (test rzkd=4599) 31.5 C FIO2 (BEAKER) (test vnns=7552) 80.0 % GLUCOSE-STAT [id number] 13:14:00 Test Item Value Reference Range Comments GLUCOSE RANDOM (BEAKER) (test xatq=324) 92 mg/dL 70-110 POTASSIUM-STAT [id number] 13:14:00 Test Item Value Reference Range Comments POTASSIUM (BEAKER) (test tdxd=844) 3.9 meq/L 3.6-5.5 BLOOD GAS, [id number] 10:54:00 Test Item Value Reference Range Comments PH ARTERIAL (BEAKER) (test uzpx=089) 7.41 7.35-7.45 PCO2 ARTERIAL (BEAKER) (test nwkg=768) 39 mmHg 35-45 PO2 ARTERIAL (BEAKER) (test qnia=652) 254 mmHg 80-90 O2 SATURATION ARTERIAL (BEAKER) (test dmvt=933) 99.6 % 96.0-97.0 HCO3 ARTERIAL (BEAKER) (test cufh=325) 25 mmol/L 21-29 BASE EXCESS ARTERIAL (BEAKER) (test spiw=066) -0.3 mmol/L -2.0-3.0 PATIENT TEMPERATURE (BEAKER) (test prnn=8702) 35.4 C FIO2 (BEAKER) (test vrdw=1538) 100.0 % HGB/HCT (H&H) - STAT [id number] 10:54:00 Test Item Value Reference Range Comments HEMOGLOBIN (BEAKER) (test tnrn=484) 9.3 g/dL 12.0-15.0 HEMATOCRIT (BEAKER) (test yave=542) 27.0 % 36.0-45.0 SODIUM NA-STAT [id number] 10:54:00 Test Item Value Reference Range Comments SODIUM (BEAKER) (test jiit=997) 132 meq/L 135-148 GLUCOSE-STAT [id number] 10:52:00 Test Item Value Reference Range Comments GLUCOSE RANDOM (BEAKER) (test edmd=950) 94 mg/dL 70-110 POTASSIUM-STAT [id number] 10:52:00 Test Item Value Reference Range Comments POTASSIUM (BEAKER) (test okpe=737) 4.0 meq/L 3.6-5.5 HEMOGLOBIN [id number] 09:50:00 Test Item Value Reference Range Comments HEMOGLOBIN A1C (BEAKER) (test oebd=337) 10.6 % 4.3-6.1 PLATELET AGGREGATION: FUNCTION [id number] 08:27:00 Test Item Value Reference Range Comments WEAK ADP RESULT(BEAKER) (test 63 % 60-91 vlki=4970) PLATELET FUNCTION SCREEN 60-100% indicates normal INTERP (BEAKER) (test platelet function tyqc=4637) [id number] (BEAKER) Toshia Post MD (electronic (test plml=0200) signature) PLATELET COUNT AGG (BEAKER) 198 K/CU MM 150-450 (test ragq=9462) for patients on clopidogrel in past two weeksPOCT-GLUCOSE [id number] 08:11: 00 Test Item Value Reference Range Comments POC-GLUCOSE METER (BEAKER) 116 mg/dL 70-110 TESTED AT [facility] [address] [facility] (test qaik=1787) [facility] [address] [id number] 07:10:00 Test Item Value Reference Range Comments PHOSPHORUS (BEAKER) (test wmfx=130) 4.5 mg/dL 2.3-4.7 [id number] 07:10:00 Test Item Value Reference Range Comments MAGNESIUM (BEAKER) (test yvhl=747) 2.1 mg/dL 1.6-2.6 BASIC METABOLIC [id number] 07:10:00 Test Item Value Reference Range Comments SODIUM (BEAKER) (test 135 meq/L 136-145 dmol=166) POTASSIUM (BEAKER) (test 4.4 meq/L 3.5-5.1 iemd=316) CHLORIDE (BEAKER) (test 106 meq/L 98-107 btns=531) CO2 (BEAKER) (test 23 meq/L 22-29 myea=054) BLOOD UREA NITROGEN 40 mg/dL 7-21 (BEAKER) (test ldnw=531) CREATININE (BEAKER) (test 1.67 mg/dL 0.57-1.25 gjxe=738) GLUCOSE RANDOM (BEAKER) 107 mg/dL 70-105 (test egwi=772) CALCIUM (BEAKER) (test 8.3 mg/dL 8.4-10.2 boao=208) EGFR (BEAKER) (test 31 mL/min/1.73 sq m ESTIMATED GFR IS NOT cqex=5716) ACCURATE CREATININE CLEARANCE IN PREDICTING GLOMERULAR FILTRATION RATE. ESTIMATED GFR IS NOT APPLICABLE FOR DIALYSIS PATIENTS. B-TYPE NATRIURETIC FACTOR (BNP)2017-05-20 06:56:00 Test Item Value Reference Range Comments B-TYPE NATRIURETIC PEPTIDE (BEAKER) (test 552 pg/mL 0-100 ggln=880) CBC W/PLT COUNT & AUTO [id number] 06:46:00 Test Item Value Reference Range Comments WHITE BLOOD CELL COUNT (BEAKER) (test qumf=697) 6.2 K/ L 3.5-10.5 RED BLOOD CELL COUNT (BEAKER) (test zqgn=674) 3.56 M/ L 3.93-5.22 HEMOGLOBIN (BEAKER) (test zqez=739) 9.1 GM/DL 11.2-15.7 HEMATOCRIT (BEAKER) (test xzlg=018) 29.5 % 34.1-44.9 MEAN CORPUSCULAR VOLUME (BEAKER) (test kyct=745) 82.9 fL 79.4-94.8 MEAN CORPUSCULAR HEMOGLOBIN (BEAKER) (test 25.6 pg 25.6-32.2 brya=831) MEAN CORPUSCULAR HEMOGLOBIN CONC (BEAKER) (test 30.8 GM/DL 32.2-35.5 czxo=616) RED CELL DISTRIBUTION WIDTH (BEAKER) (test 14.4 % 11.7-14.4 nxuz=554) PLATELET COUNT (BEAKER) (test fzoo=649) 222 K/CU MM 150-450 MEAN PLATELET VOLUME (BEAKER) (test gvud=894) 10.5 fL 9.4-12.3 NUCLEATED RED BLOOD CELLS (BEAKER) (test 0 /100 WBC 0-0 crme=322) NEUTROPHILS RELATIVE PERCENT (BEAKER) (test 47 % nmuz=607) LYMPHOCYTES RELATIVE PERCENT (BEAKER) (test 39 % uitb=342) MONOCYTES RELATIVE PERCENT (BEAKER) (test 8 % xgbl=054) EOSINOPHILS RELATIVE PERCENT (BEAKER) (test 5 % uapl=910) BASOPHILS RELATIVE PERCENT (BEAKER) (test 1 % rrox=791) NEUTROPHILS ABSOLUTE COUNT (BEAKER) (test 2.90 K/ L 1.56-6.13 efxo=634) LYMPHOCYTES ABSOLUTE COUNT (BEAKER) (test 2.37 K/ L 1.18-3.74 tnwd=830) MONOCYTES ABSOLUTE COUNT (BEAKER) (test 0.49 K/ L 0.24-0.36 bala=515) EOSINOPHILS ABSOLUTE COUNT (BEAKER) (test 0.30 K/ L 0.04-0.36 xzrx=258) BASOPHILS ABSOLUTE COUNT (BEAKER) (test 0.08 K/ L 0.01-0.08 yfwo=511) IMMATURE GRANULOCYTES-RELATIVE PERCENT (BEAKER) 0 % 0-1 (test djck=6929) CALCIUM, [id number] 06:40:00 Test Item Value Reference Range Comments CALCIUM IONIZED (BEAKER) (test pfsc=785) 1.06 mmol/L 1.12-1.27 PH, BLOOD (BEAKER) (test ajhr=8723) 7.39 POCT-GLUCOSE [id number] 23:22:00 Test Item Value Reference Range Comments POC-GLUCOSE METER (BEAKER) 165 mg/dL 70-110 TESTED AT [facility] [address] (test oive=1765) [facility] [address] URINE PROTEIN ELECTROPHORESIS, [id number] 18:02:00 Test Item Value Reference Range Comments PROTEIN, URINE (BEAKER) (test 305 mg/dL 0-14 zhmk=3231) ALBUMIN URINE ELP (BEAKER) 70.9 % (test duek=7486) GAMMA GLOBULIN URINE (BEAKER) 29.1 % (test spif=6174) UPEP, ID-438 (BEAKER) (test No monoclonal bands detected. aydy=5060) [id number] (BEAKER) Rocio Galindo MD (test medi=2671) (electronic signature) PROTEIN ELECTROPHORESIS, [id number] 17:57:00 Test Item Value Reference Range Comments ALBUMIN FRACTION (BEAKER) 2.5 g/dL 3.5-5.5 (test eqsu=356) ALPHA 1 FRACTION (BEAKER) 0.3 g/dL 0.2-0.4 (test vpok=217) ALPHA 2 FRACTION (BEAKER) 0.9 g/dL 0.5-0.9 (test bcga=435) BETA FRACTION (BEAKER) (test 0.8 g/dL 0.6-1.1 wlxi=739) GAMMA GLOBULIN FRACTION 1.0 g/dL 0.7-1.7 (BEAKER) (test nfnn=668) INTERPRETATION-119 (BEAKER) Decreased albumin with (test wmzv=2381) concurrent relative increases in all globulin fractions. No monoclonal bands detected. [id number] (BEAKER) Rocio Galindo MD (test kfll=6868) (electronic signature) PROTEIN TOTAL SERUM, SPEP 5.5 gm/dL 6.0-8.3 (BEAKER) (test qjie=0692) POCT-GLUCOSE [id number] 17:15:00 Test Item Value Reference Range Comments POC-GLUCOSE METER (BEAKER) 209 mg/dL 70-110 TESTED AT [facility] [address] (test ysvo=9193) [facility] [address] BLOOD GAS, [id number] 15:54:00 Test Item Value Reference Range Comments PH ARTERIAL (BEAKER) (test inoj=523) 7.45 7.35-7.45 PCO2 ARTERIAL (BEAKER) (test ztwv=604) 38 mmHg 35-45 PO2 ARTERIAL (BEAKER) (test nqca=322) 69 mmHg 80-90 O2 SATURATION ARTERIAL (BEAKER) (test dqtg=002) 94.5 % 96.0-97.0 HCO3 ARTERIAL (BEAKER) (test nqwp=906) 25 mmol/L 21-29 BASE EXCESS ARTERIAL (BEAKER) (test dbdw=218) 1.3 mmol/L -2.0-3.0 PATIENT TEMPERATURE (BEAKER) (test cwbc=0335) 37.0 C FIO2 (BEAKER) (test ayzk=7652) 36.0 % RAD, CHEST, 1 VIEW, NON [id number] 14:07:00Reason for exam:->SOB, hypoxemiaShould this be performed [...] Eder Cespedes Verified Date/Time: 2017 14:07:07 Reading Location:[facility] [id number] Consult Reading Room POCT- GLUCOSE [id number] 11:26:00 Test Item Value Reference Range Comments POC-GLUCOSE METER (BEAKER) 262 mg/dL 70-110 TESTED AT [address] (test eoos=4463) [facility] [address] POCT-GLUCOSE [id number] 07:37:00 Test Item Value Reference Range Comments POC-GLUCOSE METER (BEAKER) 170 mg/dL 70-110 TESTED AT [address] (test uggu=0198) [facility] [address] CALCIUM, [id number] 06:06:00 Test Item Value Reference Range Comments CALCIUM IONIZED (BEAKER) (test ttvs=318) 1.05 mmol/L 1.12-1.27 PH, BLOOD (BEAKER) (test nzgt=1479) 7.41 [id number] 05:38:00 Test Item Value Reference Range Comments PHOSPHORUS (BEAKER) (test vhjr=314) 3.9 mg/dL 2.3-4.7 [id number] 05:38:00 Test Item Value Reference Range Comments MAGNESIUM (BEAKER) (test bhrr=391) 2.2 mg/dL 1.6-2.6 BASIC METABOLIC [id number] 05:38:00 Test Item Value Reference Range Comments SODIUM (BEAKER) (test 135 meq/L 136-145 gcgp=170) POTASSIUM (BEAKER) (test 4.5 meq/L 3.5-5.1 wbat=924) CHLORIDE (BEAKER) (test 105 meq/L 98-107 rlug=895) CO2 (BEAKER) (test 24 meq/L 22-29 jqaw=451) BLOOD UREA NITROGEN 41 mg/dL 7-21 (BEAKER) (test kviv=679) CREATININE (BEAKER) (test 1.74 mg/dL 0.57-1.25 ouzt=825) GLUCOSE RANDOM (BEAKER) 174 mg/dL 70-105 (test eavd=436) CALCIUM (BEAKER) (test 8.4 mg/dL 8.4-10.2 zvpn=581) EGFR (BEAKER) (test 30 mL/min/1.73 sq m ESTIMATED GFR IS NOT wvhs=8333) ACCURATE CREATININE CLEARANCE IN PREDICTING GLOMERULAR FILTRATION RATE. ESTIMATED GFR IS NOT APPLICABLE FOR DIALYSIS PATIENTS. CBC W/PLT COUNT & AUTO [id number] 05:09:00 Test Item Value Reference Range Comments WHITE BLOOD CELL COUNT (BEAKER) (test vkux=476) 8.5 K/ L 3.5-10.5 RED BLOOD CELL COUNT (BEAKER) (test pklv=280) 3.54 M/ L 3.93-5.22 HEMOGLOBIN (BEAKER) (test hpvt=623) 9.1 GM/DL 11.2-15.7 HEMATOCRIT (BEAKER) (test zldg=105) 29.1 % 34.1-44.9 MEAN CORPUSCULAR VOLUME (BEAKER) (test zpeb=724) 82.2 fL 79.4-94.8 MEAN CORPUSCULAR HEMOGLOBIN (BEAKER) (test 25.7 pg 25.6-32.2 syqh=339) MEAN CORPUSCULAR HEMOGLOBIN CONC (BEAKER) (test 31.3 GM/DL 32.2-35.5 wszz=876) RED CELL DISTRIBUTION WIDTH (BEAKER) (test 14.5 % 11.7-14.4 ijzg=470) PLATELET COUNT (BEAKER) (test jwmh=993) 201 K/CU MM 150-450 MEAN PLATELET VOLUME (BEAKER) (test ruda=570) 10.7 fL 9.4-12.3 NUCLEATED RED BLOOD CELLS (BEAKER) (test 0 /100 WBC 0-0 qvmf=882) NEUTROPHILS RELATIVE PERCENT (BEAKER) (test 56 % klpp=124) LYMPHOCYTES RELATIVE PERCENT (BEAKER) (test 32 % mtsu=309) MONOCYTES RELATIVE PERCENT (BEAKER) (test 7 % guwd=911) EOSINOPHILS RELATIVE PERCENT (BEAKER) (test 4 % ijiv=885) BASOPHILS RELATIVE PERCENT (BEAKER) (test 1 % vxmr=801) NEUTROPHILS ABSOLUTE COUNT (BEAKER) (test 4.80 K/ L 1.56-6.13 txhj=288) LYMPHOCYTES ABSOLUTE COUNT (BEAKER) (test 2.73 K/ L 1.18-3.74 cgbh=188) MONOCYTES ABSOLUTE COUNT (BEAKER) (test 0.62 K/ L 0.24-0.36 znas=539) EOSINOPHILS ABSOLUTE COUNT (BEAKER) (test 0.30 K/ L 0.04-0.36 cvjq=245) BASOPHILS ABSOLUTE COUNT (BEAKER) (test 0.06 K/ L 0.01-0.08 jjsi=288) IMMATURE GRANULOCYTES-RELATIVE PERCENT (BEAKER) 0 % 0-1 (test qzsv=5694) POCT-GLUCOSE [id number] 22:08:00 Test Item Value Reference Range Comments POC-GLUCOSE METER (BEAKER) 263 mg/dL 70-110 TESTED AT [address] (test xdpw=9750) [place] [id number] POCT-GLUCOSE [id number] 17:20:00 Test Item Value Reference Range Comments POC-GLUCOSE METER (BEAKER) 233 mg/dL 70-110 TESTED AT [address] (test xapz=9223) [place] [id number] POCT-GLUCOSE [id number] 08:28:00 Test Item Value Reference Range Comments POC-GLUCOSE METER (BEAKER) 154 mg/dL 70-110 TESTED AT [address] (test jijg=7214) [place] [id number] BASIC METABOLIC [id number] 06:41:00 Test Item Value Reference Range Comments SODIUM (BEAKER) (test 135 meq/L 136-145 edsx=868) POTASSIUM (BEAKER) (test 4.6 meq/L 3.5-5.1 fzaa=044) CHLORIDE (BEAKER) (test 104 meq/L 98-107 bkaq=217) CO2 (BEAKER) (test 23 meq/L 22-29 dcxz=913) BLOOD UREA NITROGEN 39 mg/dL 7-21 (BEAKER) (test iefn=917) CREATININE (BEAKER) (test 1.77 mg/dL 0.57-1.25 cawl=173) GLUCOSE RANDOM (BEAKER) 173 mg/dL 70-105 (test kfss=174) CALCIUM (BEAKER) (test 8.6 mg/dL 8.4-10.2 tuxq=912) EGFR (BEAKER) (test 29 mL/min/1.73 sq m ESTIMATED GFR IS NOT berf=4980) ACCURATE CREATININE CLEARANCE IN PREDICTING GLOMERULAR FILTRATION RATE. ESTIMATED GFR IS NOT APPLICABLE FOR DIALYSIS PATIENTS. [id number] 06:35:00 Test Item Value Reference Range Comments PHOSPHORUS (BEAKER) (test ihox=362) 4.1 mg/dL 2.3-4.7 [id number] 06:35:00 Test Item Value Reference Range Comments MAGNESIUM (BEAKER) (test eagj=705) 2.1 mg/dL 1.6-2.6 CALCIUM, [id number] 06:22:00 Test Item Value Reference Range Comments CALCIUM IONIZED (BEAKER) (test szsb=275) 1.10 mmol/L 1.12-1.27 PH, BLOOD (BEAKER) (test klqt=9088) 7.38 CBC W/PLT COUNT & AUTO [id number] 06:04:00 Test Item Value Reference Range Comments WHITE BLOOD CELL COUNT (BEAKER) (test ojny=889) 9.3 K/ L 3.5-10.5 RED BLOOD CELL COUNT (BEAKER) (test isca=306) 4.15 M/ L 3.93-5.22 HEMOGLOBIN (BEAKER) (test fqer=758) 10.6 GM/DL 11.2-15.7 HEMATOCRIT (BEAKER) (test uobs=792) 34.2 % 34.1-44.9 MEAN CORPUSCULAR VOLUME (BEAKER) (test xghw=543) 82.4 fL 79.4-94.8 MEAN CORPUSCULAR HEMOGLOBIN (BEAKER) (test 25.5 pg 25.6-32.2 gupf=429) MEAN CORPUSCULAR HEMOGLOBIN CONC (BEAKER) (test 31.0 GM/DL 32.2-35.5 owlp=735) RED CELL DISTRIBUTION WIDTH (BEAKER) (test 14.6 % 11.7-14.4 glby=279) PLATELET COUNT (BEAKER) (test rcuk=546) 183 K/CU MM 150-450 MEAN PLATELET VOLUME (BEAKER) (test pdag=278) 11.0 fL 9.4-12.3 NUCLEATED RED BLOOD CELLS (BEAKER) (test 0 /100 WBC 0-0 risf=737) NEUTROPHILS RELATIVE PERCENT (BEAKER) (test 66 % xbvp=759) LYMPHOCYTES RELATIVE PERCENT (BEAKER) (test 24 % fyec=559) MONOCYTES RELATIVE PERCENT (BEAKER) (test 7 % rjgi=030) EOSINOPHILS RELATIVE PERCENT (BEAKER) (test 3 % rgfq=625) BASOPHILS RELATIVE PERCENT (BEAKER) (test 1 % kcan=436) NEUTROPHILS ABSOLUTE COUNT (BEAKER) (test 6.15 K/ L 1.56-6.13 egqt=219) LYMPHOCYTES ABSOLUTE COUNT (BEAKER) (test 2.20 K/ L 1.18-3.74 ibsh=748) MONOCYTES ABSOLUTE COUNT (BEAKER) (test 0.62 K/ L 0.24-0.36 rpjx=552) EOSINOPHILS ABSOLUTE COUNT (BEAKER) (test 0.24 K/ L 0.04-0.36 hnhh=170) BASOPHILS ABSOLUTE COUNT (BEAKER) (test 0.06 K/ L 0.01-0.08 sgtq=920) IMMATURE GRANULOCYTES-RELATIVE PERCENT (BEAKER) 0 % 0-1 (test hfhr=9785) POCT-GLUCOSE [id number] 03:44:00 Test Item Value Reference Range Comments POC-GLUCOSE METER (BEAKER) 220 mg/dL 70-110 TESTED AT [address] (test zzdv=6916) [place] [address] POCT-GLUCOSE [id number] 18:27:00 Test Item Value Reference Range Comments POC-GLUCOSE METER (BEAKER) 256 mg/dL 70-110 TESTED AT [address] (test oulh=5473) [place] [address] POCT-GLUCOSE [id number] 15:45:00 Test Item Value Reference Range Comments POC-GLUCOSE METER (BEAKER) 278 mg/dL 70-110 TESTED AT [address] (test hfph=1543) [place] [address] POCT-GLUCOSE [id number] 13:22:00 Test Item Value Reference Range Comments POC-GLUCOSE METER (BEAKER) 278 mg/dL 70-110 TESTED AT [address] (test vagm=8852) [place] [address] PLATELET AGGREGATION: FUNCTION [id number] 13:18:00 Test Item Value Reference Range Comments WEAK ADP RESULT(BEAKER) (test 66 % 60-91 ivdt=9704) PLATELET FUNCTION SCREEN 60-100% indicates normal INTERP (BEAKER) (test platelet function eqqo=3909) HERP-[id number]-[id number] (BEAKER) Rigoberto Duenas MD (electronic (test iigd=4674) signature) PLATELET COUNT AGG (BEAKER) 204 K/CU MM 150-450 (test klwz=6918) POCT-GLUCOSE [id number] 08:27:00 Test Item Value Reference Range Comments POC-GLUCOSE METER (BEAKER) 189 mg/dL 70-110 TESTED AT [facility] [address] [facility] (test ifch=5084) [facility] [address] CALCIUM, [id number] 06:12:00 Test Item Value Reference Range Comments CALCIUM IONIZED (BEAKER) (test ysda=164) 1.07 mmol/L 1.12-1.27 PH, BLOOD (BEAKER) (test yafi=2573) 7.36 [id number] 05:43:00 Test Item Value Reference Range Comments PHOSPHORUS (BEAKER) (test oawq=348) 3.6 mg/dL 2.3-4.7 [id number] 05:43:00 Test Item Value Reference Range Comments MAGNESIUM (BEAKER) (test akre=367) 2.1 mg/dL 1.6-2.6 BASIC METABOLIC [id number] 05:43:00 Test Item Value Reference Range Comments SODIUM (BEAKER) (test 137 meq/L 136-145 biwt=465) POTASSIUM (BEAKER) (test 4.7 meq/L 3.5-5.1 ucyq=060) CHLORIDE (BEAKER) (test 107 meq/L 98-107 czat=874) CO2 (BEAKER) (test 24 meq/L 22-29 gtjy=534) BLOOD UREA NITROGEN 38 mg/dL 7-21 (BEAKER) (test hjtu=128) CREATININE (BEAKER) (test 1.72 mg/dL 0.57-1.25 dmkj=757) GLUCOSE RANDOM (BEAKER) 198 mg/dL 70-105 (test xjhy=030) CALCIUM (BEAKER) (test 8.3 mg/dL 8.4-10.2 eqml=179) EGFR (BEAKER) (test 30 mL/min/1.73 sq m ESTIMATED GFR IS NOT pzad=6326) ACCURATE CREATININE CLEARANCE IN PREDICTING GLOMERULAR FILTRATION RATE. ESTIMATED GFR IS NOT APPLICABLE FOR DIALYSIS PATIENTS. CBC W/PLT COUNT & AUTO [id number] 05:05:00 Test Item Value Reference Range Comments WHITE BLOOD CELL COUNT (BEAKER) (test zzjy=571) 8.6 K/ L 3.5-10.5 RED BLOOD CELL COUNT (BEAKER) (test ngkv=031) 4.20 M/ L 3.93-5.22 HEMOGLOBIN (BEAKER) (test sziq=840) 10.7 GM/DL 11.2-15.7 HEMATOCRIT (BEAKER) (test lrpm=767) 34.7 % 34.1-44.9 MEAN CORPUSCULAR VOLUME (BEAKER) (test ecid=144) 82.6 fL 79.4-94.8 MEAN CORPUSCULAR HEMOGLOBIN (BEAKER) (test 25.5 pg 25.6-32.2 kilx=237) MEAN CORPUSCULAR HEMOGLOBIN CONC (BEAKER) (test 30.8 GM/DL 32.2-35.5 jcgz=109) RED CELL DISTRIBUTION WIDTH (BEAKER) (test 14.7 % 11.7-14.4 zxxx=227) PLATELET COUNT (BEAKER) (test megf=366) 198 K/CU MM 150-450 MEAN PLATELET VOLUME (BEAKER) (test rghr=487) 11.1 fL 9.4-12.3 NUCLEATED RED BLOOD CELLS (BEAKER) (test 0 /100 WBC 0-0 lufp=263) NEUTROPHILS RELATIVE PERCENT (BEAKER) (test 63 % qqqc=088) LYMPHOCYTES RELATIVE PERCENT (BEAKER) (test 28 % vdll=629) MONOCYTES RELATIVE PERCENT (BEAKER) (test 6 % levy=880) EOSINOPHILS RELATIVE PERCENT (BEAKER) (test 3 % pqje=902) BASOPHILS RELATIVE PERCENT (BEAKER) (test 1 % wvya=860) NEUTROPHILS ABSOLUTE COUNT (BEAKER) (test 5.41 K/ L 1.56-6.13 eszk=402) LYMPHOCYTES ABSOLUTE COUNT (BEAKER) (test 2.37 K/ L 1.18-3.74 ihjo=529) MONOCYTES ABSOLUTE COUNT (BEAKER) (test 0.50 K/ L 0.24-0.36 vaye=936) EOSINOPHILS ABSOLUTE COUNT (BEAKER) (test 0.27 K/ L 0.04-0.36 suui=421) BASOPHILS ABSOLUTE COUNT (BEAKER) (test 0.06 K/ L 0.01-0.08 fdxq=093) IMMATURE GRANULOCYTES-RELATIVE PERCENT (BEAKER) 0 % 0-1 (test nqjt=5844) POCT-GLUCOSE [id number] 21:32:00 Test Item Value Reference Range Comments POC-GLUCOSE METER (BEAKER) 176 mg/dL 70-110 TESTED AT [address] (test wgix=9841) [place] [address] POCT-GLUCOSE [id number] 20:27:00 Test Item Value Reference Range Comments POC-GLUCOSE METER (BEAKER) 161 mg/dL 70-110 TESTED AT [address] (test lbyj=7289) [place] [address] POCT-GLUCOSE [id number] 18:23:00 Test Item Value Reference Range Comments POC-GLUCOSE METER (BEAKER) 185 mg/dL 70-110 TESTED AT [address] (test mcch=1013) [place] [address] POCT-GLUCOSE [id number] 13:26:00 Test Item Value Reference Range Comments POC-GLUCOSE METER (BEAKER) 282 mg/dL 70-110 TESTED AT [address] (test ioil=6439) [place] [address] URINE [id number] 10:12:00 Test Item Value Reference Range Comments CULTURE (BEAKER) (test zhbk=6638) >100,000 col/mL skin todd POCT-GLUCOSE [id number] 09:01:00 Test Item Value Reference Range Comments POC-GLUCOSE METER (BEAKER) 268 mg/dL 70-110 TESTED AT [address] (test uxep=4291) [place] [address] CALCIUM, [id number] 05:39:00 Test Item Value Reference Range Comments CALCIUM IONIZED (BEAKER) (test vfaq=755) 0.84 mmol/L 1.12-1.27 PH, BLOOD (BEAKER) (test npnr=2422) 7.35 BASIC METABOLIC [id number] 05:07:00 Test Item Value Reference Range Comments SODIUM (BEAKER) (test 135 meq/L 136-145 eyyl=873) POTASSIUM (BEAKER) (test 4.9 meq/L 3.5-5.1 wjdm=511) CHLORIDE (BEAKER) (test 106 meq/L 98-107 joat=234) CO2 (BEAKER) (test 22 meq/L 22-29 plya=219) BLOOD UREA NITROGEN 43 mg/dL 7-21 (BEAKER) (test iija=902) CREATININE (BEAKER) (test 2.00 mg/dL 0.57-1.25 lznh=909) GLUCOSE RANDOM (BEAKER) 161 mg/dL 70-105 (test urxf=442) CALCIUM (BEAKER) (test 8.2 mg/dL 8.4-10.2 angf=431) EGFR (BEAKER) (test 25 mL/min/1.73 sq m ESTIMATED GFR IS NOT iydh=9740) ACCURATE CREATININE CLEARANCE IN PREDICTING GLOMERULAR FILTRATION RATE. ESTIMATED GFR IS NOT APPLICABLE FOR DIALYSIS PATIENTS. [id number] 05:06:00 Test Item Value Reference Range Comments PHOSPHORUS (BEAKER) (test vrgr=594) 3.2 mg/dL 2.3-4.7 [id number] 05:06:00 Test Item Value Reference Range Comments MAGNESIUM (BEAKER) (test kzcq=497) 2.3 mg/dL 1.6-2.6 CBC W/PLT COUNT & AUTO [id number] 04:42:00 Test Item Value Reference Range Comments WHITE BLOOD CELL COUNT (BEAKER) (test wdnb=031) 9.5 K/ L 3.5-10.5 RED BLOOD CELL COUNT (BEAKER) (test rklc=510) 4.17 M/ L 3.93-5.22 HEMOGLOBIN (BEAKER) (test qmhn=381) 10.5 GM/DL 11.2-15.7 HEMATOCRIT (BEAKER) (test fbaq=516) 34.2 % 34.1-44.9 MEAN CORPUSCULAR VOLUME (BEAKER) (test bvth=267) 82.0 fL 79.4-94.8 MEAN CORPUSCULAR HEMOGLOBIN (BEAKER) (test 25.2 pg 25.6-32.2 yayy=494) MEAN CORPUSCULAR HEMOGLOBIN CONC (BEAKER) (test 30.7 GM/DL 32.2-35.5 thqe=887) RED CELL DISTRIBUTION WIDTH (BEAKER) (test 14.6 % 11.7-14.4 mwpi=715) PLATELET COUNT (BEAKER) (test dxto=954) 177 K/CU MM 150-450 MEAN PLATELET VOLUME (BEAKER) (test gvei=178) 11.1 fL 9.4-12.3 NUCLEATED RED BLOOD CELLS (BEAKER) (test 0 /100 WBC 0-0 twgt=912) NEUTROPHILS RELATIVE PERCENT (BEAKER) (test 55 % ainb=407) LYMPHOCYTES RELATIVE PERCENT (BEAKER) (test 36 % qmlj=303) MONOCYTES RELATIVE PERCENT (BEAKER) (test 6 % bepm=339) EOSINOPHILS RELATIVE PERCENT (BEAKER) (test 2 % umkz=519) BASOPHILS RELATIVE PERCENT (BEAKER) (test 1 % eljk=118) NEUTROPHILS ABSOLUTE COUNT (BEAKER) (test 5.20 K/ L 1.56-6.13 csem=218) LYMPHOCYTES ABSOLUTE COUNT (BEAKER) (test 3.37 K/ L 1.18-3.74 bofe=645) MONOCYTES ABSOLUTE COUNT (BEAKER) (test 0.59 K/ L 0.24-0.36 zdur=388) EOSINOPHILS ABSOLUTE COUNT (BEAKER) (test 0.21 K/ L 0.04-0.36 qwne=059) BASOPHILS ABSOLUTE COUNT (BEAKER) (test 0.07 K/ L 0.01-0.08 bnet=697) IMMATURE GRANULOCYTES-RELATIVE PERCENT (BEAKER) 0 % 0-1 (test qnvf=9385) RHEUMATOID FACTOR AB, REFLEX TO [id number] 01:52:00 Test Item Value Reference Range Comments RHEUMATOID FACTOR (BEAKER) (test ukxq=897) Negative POCT-GLUCOSE [id number] 21:57:00 Test Item Value Reference Range Comments POC-GLUCOSE METER (BEAKER) 105 mg/dL 70-110 TESTED AT [address] (test bwzd=5420) [place] [id number] POCT-GLUCOSE [id number] 18:11:00 Test Item Value Reference Range Comments POC-GLUCOSE METER (BEAKER) 312 mg/dL 70-110 Notified GUILHERME PIERRE/TESTED AT [facility] (test gcik=7230) [address] [place] [address] PET, CARDIAC PERFUSION MULTIPLE STUDIES, REST AND [id number] 16:28: 00Reason for exam:->pvcs, known cadFINAL REPORT PROCEDURE: Rest/Stress MYOCARDIAL PERFUSION PET with regadenoson\XA9\ CPT CODE: 25331 INDICATION: Defined extent and severity of known [...] 23% . LVEF at stress is 36%. Scientist Immunology CT images revealed a right pleural effusion [...] pleural and pericardial effusions. 7. No previous [facility] study for comparison. NONINVASIVE RISK STRATIFICATION: The above findings are considered high risk (>3% annual mortality rate) based on the following criteria: - Severe resting left ventricular dysfunction (LVEF 35%)- Stress-induced large perfusion defect ( particularly if anterior)(JACC. 2012;59(9):857-81.) Signed: Last Lopez MDReport Verified Date/Time: 05/15/2017 16:28:12 Reading Location: [address] [facility] ReadingRoom RAD, CHEST, 1 VIEW, NON [id number] 15:56:00Reason for exam:->SOBShould this be performed at the bedside?->YesFINAL REPORT Comparison: 05/14/2017 TECHNIQUE: Single view of the chest FINDINGS: There is a small right pleural effusion with nonspecific airspace disease. This is unchanged. Left lung is grossly clear. Cardiac silhouette is enlarged. IMPRESSION: 1. No acute cardiopulmonary disease. Signed : Sixto Monk MDReport Verified Date/Time: 05/15/2017 15:56:39 Reading Location : [facility] Radiology Reading Room POCT-GLUCOSE [id number] 12:54:00 Test Item Value Reference Range Comments POC-GLUCOSE METER (BEAKER) 308 mg/dL 70-110 Notified GUILHERME PIERRE/TESTED AT [facility] (test ekfu=2471) [address] [facility] [address] U/S, RENAL WITH [id number] 11:04:00Reason for exam:->tracy, htnShould this be performed [...] the resistive indices throughout. Signed : Anahi [facility] Verified Date/Time: 05/15/2017 11:04:01 Reading Location : [place] [id number] Ultrasound Reading Room ANA TITER AND [id number] 10:57:00 Test Item Value Reference Range Comments ROGER TITER (BEAKER) (test kkdd=2197) :160 ROGER PATTERN (BEAKER) (test peqo=7775) Speckled ANTI-NUCLEAR ANTIBODY (ROGER)2017-05-15 10:56:00 Test Item Value Reference Range Comments ANTI-NUCLEAR ANTIBODY (ROGER) (BEAKER) (test Positive Negative pahb=343) CALCIUM, [id number] 06:00:00 Test Item Value Reference Range Comments CALCIUM IONIZED (BEAKER) (test jcqo=829) 1.07 mmol/L 1.12-1.27 PH, BLOOD (BEAKER) (test zjqz=3552) 7.28 HEPATITIS PANEL, [id number] 05:01:00 Test Item Value Reference Range Comments HEPATITIS A IGM ANTIBODY (BEAKER) (test Nonreactive Nonreactive fcpc=483) HEPATITIS B CORE IGM ANTIBODY (BEAKER) (test Nonreactive Nonreactive koyi=041) HEPATITIS C ANTIBODY (BEAKER) (test djmp=519) Nonreactive Nonreactive HEPATITIS B SURFACE ANTIGEN (2) (BEAKER) (test Nonreactive Nonreactive nwgu=1461) BASIC METABOLIC [id number] 04:48:00 Test Item Value Reference Range Comments SODIUM (BEAKER) (test 135 meq/L 136-145 cmed=153) POTASSIUM (BEAKER) (test 5.2 meq/L 3.5-5.1 hmfr=900) CHLORIDE (BEAKER) (test 104 meq/L 98-107 oqem=626) CO2 (BEAKER) (test 22 meq/L 22-29 gejn=515) BLOOD UREA NITROGEN 46 mg/dL 7-21 (BEAKER) (test tulr=436) CREATININE (BEAKER) (test 2.64 mg/dL 0.57-1.25 pkxe=746) GLUCOSE RANDOM (BEAKER) 176 mg/dL 70-105 (test hssy=531) CALCIUM (BEAKER) (test 8.2 mg/dL 8.4-10.2 nqmh=924) EGFR (BEAKER) (test 18 mL/min/1.73 sq m ESTIMATED GFR IS NOT cplc=5011) ACCURATE CREATININE CLEARANCE IN PREDICTING GLOMERULAR FILTRATION RATE. ESTIMATED GFR IS NOT APPLICABLE FOR DIALYSIS PATIENTS. URIC [id number] 04:41:00 Test Item Value Reference Range Comments URIC ACID (BEAKER) (test jytv=691) 10.3 mg/dL 2.6-7.2 [id number] 04:41:00 Test Item Value Reference Range Comments MAGNESIUM (BEAKER) (test ghil=618) 2.0 mg/dL 1.6-2.6 [id number] 04:41:00 Test Item Value Reference Range Comments PHOSPHORUS (BEAKER) (test jhii=272) 4.2 mg/dL 2.3-4.7 COMPLEMENT COMPONENT [id number] 04:38:00 Test Item Value Reference Range Comments C4 COMPLEMENT (BEAKER) (test rsty=405) 28 mg/dL 15-57 COMPLEMENT COMPONENT [id number] 04:38:00 Test Item Value Reference Range Comments C3 COMPLEMENT (BEAKER) (test tjpy=378) 103 mg/dL 82-193 CBC W/PLT COUNT & AUTO [id number] 04:22:00 Test Item Value Reference Range Comments WHITE BLOOD CELL COUNT (BEAKER) (test ifzr=303) 11.0 K/ L 3.5-10.5 RED BLOOD CELL COUNT (BEAKER) (test ghax=113) 4.25 M/ L 3.93-5.22 HEMOGLOBIN (BEAKER) (test xylg=402) 10.6 GM/DL 11.2-15.7 HEMATOCRIT (BEAKER) (test rwtp=674) 35.3 % 34.1-44.9 MEAN CORPUSCULAR VOLUME (BEAKER) (test kpwr=558) 83.1 fL 79.4-94.8 MEAN CORPUSCULAR HEMOGLOBIN (BEAKER) (test 24.9 pg 25.6-32.2 sxcb=435) MEAN CORPUSCULAR HEMOGLOBIN CONC (BEAKER) (test 30.0 GM/DL 32.2-35.5 yhvx=773) RED CELL DISTRIBUTION WIDTH (BEAKER) (test 14.5 % 11.7-14.4 foln=030) PLATELET COUNT (BEAKER) (test okmv=566) 185 K/CU MM 150-450 MEAN PLATELET VOLUME (BEAKER) (test qdku=086) 10.9 fL 9.4-12.3 NUCLEATED RED BLOOD CELLS (BEAKER) (test 0 /100 WBC 0-0 ujkg=258) NEUTROPHILS RELATIVE PERCENT (BEAKER) (test 61 % sgmi=462) LYMPHOCYTES RELATIVE PERCENT (BEAKER) (test 31 % meql=624) MONOCYTES RELATIVE PERCENT (BEAKER) (test 5 % kihi=536) EOSINOPHILS RELATIVE PERCENT (BEAKER) (test 2 % qlbm=217) BASOPHILS RELATIVE PERCENT (BEAKER) (test 1 % egyb=439) NEUTROPHILS ABSOLUTE COUNT (BEAKER) (test 6.72 K/ L 1.56-6.13 elok=896) LYMPHOCYTES ABSOLUTE COUNT (BEAKER) (test 3.35 K/ L 1.18-3.74 txlp=766) MONOCYTES ABSOLUTE COUNT (BEAKER) (test 0.59 K/ L 0.24-0.36 wbnk=086) EOSINOPHILS ABSOLUTE COUNT (BEAKER) (test 0.21 K/ L 0.04-0.36 ctxa=521) BASOPHILS ABSOLUTE COUNT (BEAKER) (test 0.06 K/ L 0.01-0.08 vcad=905) IMMATURE GRANULOCYTES-RELATIVE PERCENT (BEAKER) 0 % 0-1 (test ddhw=9374) POCT-GLUCOSE [id number] 21:46:00 Test Item Value Reference Range Comments POC-GLUCOSE METER (BEAKER) 173 mg/dL 70-110 TESTED AT [address] (test levg=8429) [place] [address] POCT-GLUCOSE [id number] 21:46:00 Test Item Value Reference Range Comments POC-GLUCOSE METER (BEAKER) 154 mg/dL 70-110 TESTED AT [address] (test ceqh=8745) [place] [address] POCT-GLUCOSE [id number] 18:17:00 Test Item Value Reference Range Comments POC-GLUCOSE METER (BEAKER) 175 mg/dL 70-110 TESTED AT [address] (test slbu=5204) [place] [address] RAD, CHEST, 1 VIEW, NON [id number] 14:56:00Reason for exam:->SOBShould this be performed at the bedside?->YesFINAL REPORT INDICATION: SOB COMPARISON: May 13, 2017 TECHNIQUE: Chest radiograph, single view, portable technique. FINDINGS / IMPRESSION: Enlarged heart shadow, small rightpleural effusion, and pulmonary venous congestion, again demonstrated. No pneumothorax or consolidation. Osseous structures unremarkable. Signed: Satnam Jean MDRort Verified Date/Time: 05/14/2017 14:56:58 Reading Location: [facility] Mammo Reading Room POCT-GLUCOSE [id number] 12:18:00 Test Item Value Reference Range Comments POC-GLUCOSE METER (BEAKER) 313 mg/dL 70-110 TESTED AT [address] (test mryo=8553) [place] [address] HIV-1 ANTIGEN WITH HIV-1/2 [id number] 12:07:00 Test Item Value Reference Range Comments HIV-1 ANTIGEN WITH HIV 1\T\2 ANTIBODY (2) Nonreactive Nonreactive (BEAKER) (test jeyk=1593) CALCIUM, [id number] 06:37:00 Test Item Value Reference Range Comments CALCIUM IONIZED (BEAKER) (test vsfp=890) 1.08 mmol/L 1.12-1.27 PH, BLOOD (BEAKER) (test gcqd=5928) 7.25 BASIC METABOLIC [id number] 06:26:00 Test Item Value Reference Range Comments SODIUM (BEAKER) (test 134 meq/L 136-145 sabi=862) POTASSIUM (BEAKER) (test 5.1 meq/L 3.5-5.1 vxad=061) CHLORIDE (BEAKER) (test 103 meq/L 98-107 srfy=922) CO2 (BEAKER) (test 25 meq/L 22-29 rfvh=474) BLOOD UREA NITROGEN 45 mg/dL 7-21 (BEAKER) (test akml=719) CREATININE (BEAKER) (test 2.92 mg/dL 0.57-1.25 dyuz=012) GLUCOSE RANDOM (BEAKER) 163 mg/dL 70-105 (test hoyf=898) CALCIUM (BEAKER) (test 8.1 mg/dL 8.4-10.2 wnwn=640) EGFR (BEAKER) (test 16 mL/min/1.73 sq m ESTIMATED GFR IS NOT qzva=1961) ACCURATE CREATININE CLEARANCE IN PREDICTING GLOMERULAR FILTRATION RATE. ESTIMATED GFR IS NOT APPLICABLE FOR DIALYSIS PATIENTS. B-TYPE NATRIURETIC FACTOR (BNP)2017-05-14 06:26:00 Test Item Value Reference Range Comments B-TYPE NATRIURETIC PEPTIDE (BEAKER) (test 474 pg/mL 0-100 ubcb=483) [id number] 06:25:00 Test Item Value Reference Range Comments PHOSPHORUS (BEAKER) (test lzvh=090) 5.7 mg/dL 2.3-4.7 [id number] 06:25:00 Test Item Value Reference Range Comments MAGNESIUM (BEAKER) (test dlky=256) 1.5 mg/dL 1.6-2.6 CBC W/PLT COUNT & AUTO [id number] 06:07:00 Test Item Value Reference Range Comments WHITE BLOOD CELL COUNT (BEAKER) (test qimu=053) 8.9 K/ L 3.5-10.5 RED BLOOD CELL COUNT (BEAKER) (test wurv=083) 4.32 M/ L 3.93-5.22 HEMOGLOBIN (BEAKER) (test ipuu=547) 11.0 GM/DL 11.2-15.7 HEMATOCRIT (BEAKER) (test jqlj=992) 36.6 % 34.1-44.9 MEAN CORPUSCULAR VOLUME (BEAKER) (test eego=418) 84.7 fL 79.4-94.8 MEAN CORPUSCULAR HEMOGLOBIN (BEAKER) (test 25.5 pg 25.6-32.2 jsny=002) MEAN CORPUSCULAR HEMOGLOBIN CONC (BEAKER) (test 30.1 GM/DL 32.2-35.5 pxjo=896) RED CELL DISTRIBUTION WIDTH (BEAKER) (test 14.6 % 11.7-14.4 gkye=156) PLATELET COUNT (BEAKER) (test acjm=565) 201 K/CU MM 150-450 MEAN PLATELET VOLUME (BEAKER) (test fzbl=198) 11.1 fL 9.4-12.3 NUCLEATED RED BLOOD CELLS (BEAKER) (test 0 /100 WBC 0-0 clwj=850) NEUTROPHILS RELATIVE PERCENT (BEAKER) (test 55 % vktx=444) LYMPHOCYTES RELATIVE PERCENT (BEAKER) (test 36 % bkhu=929) MONOCYTES RELATIVE PERCENT (BEAKER) (test 5 % xwfl=985) EOSINOPHILS RELATIVE PERCENT (BEAKER) (test 3 % jrhu=587) BASOPHILS RELATIVE PERCENT (BEAKER) (test 1 % nmkh=377) NEUTROPHILS ABSOLUTE COUNT (BEAKER) (test 4.85 K/ L 1.56-6.13 dozy=272) LYMPHOCYTES ABSOLUTE COUNT (BEAKER) (test 3.18 K/ L 1.18-3.74 lvwp=914) MONOCYTES ABSOLUTE COUNT (BEAKER) (test 0.47 K/ L 0.24-0.36 anib=004) EOSINOPHILS ABSOLUTE COUNT (BEAKER) (test 0.25 K/ L 0.04-0.36 oohk=427) BASOPHILS ABSOLUTE COUNT (BEAKER) (test 0.07 K/ L 0.01-0.08 bzts=233) IMMATURE GRANULOCYTES-RELATIVE PERCENT (BEAKER) 0 % 0-1 (test xzej=9150) POCT-GLUCOSE [id number] 22:38:00 Test Item Value Reference Range Comments POC-GLUCOSE METER (BEAKER) 262 mg/dL 70-110 TESTED AT [facility] [address] (test ibtx=7778) [facility] [address] PROTEIN, RANDOM [id number] 22:18:00 Test Item Value Reference Range Comments PROTEIN, URINE (BEAKER) (test htes=2090) 641 mg/dL 0-14 CREATININE, RANDOM [id number] 22:07:00 Test Item Value Reference Range Comments CREATININE URINE (BEAKER) (test hado=199) 124.9 mg/dL Reference Range: No NormalsURINALYSIS W/ [id number] 22:03:00 Test Item Value Reference Range Comments COLOR (BEAKER) (test ptip=964) Yellow CLARITY (BEAKER) (test jvsm=414) Cloudy SPECIFIC GRAVITY UA (BEAKER) (test zgjn=108) 1.015 1.001-1.035 PH UA (BEAKER) (test neie=640) 5.5 5.0-8.0 PROTEIN UA (BEAKER) (test nakv=691) 300 mg/dL Negative GLUCOSE UA (BEAKER) (test enrk=261) 300 mg/dL Negative KETONES UA (BEAKER) (test nnsw=676) Negative Negative BILIRUBIN UA (BEAKER) (test feuq=392) Negative Negative BLOOD UA (BEAKER) (test fldl=847) Trace Negative NITRITE UA (BEAKER) (test utbt=433) Negative Negative LEUKOCYTE ESTERASE UA (BEAKER) (test apql=743) Moderate Negative UROBILINOGEN UA (BEAKER) (test pzif=368) 0.2 mg/dL 0.2-1.0 RBC UA (BEAKER) (test mkbs=118) 11 /HPF WBC UA (BEAKER) (test pgom=071) 36 /HPF MUCUS (BEAKER) (test edvd=9673) Few SQUAMOUS EPITHELIAL (BEAKER) (test apsd=833) 12 /HPF HYALINE CASTS (BEAKER) (test kexg=645) 66 /LPF CASTS (BEAKER) (test gfwu=5408) 112 /LPF YEAST (BEAKER) (test hapn=7603) Moderate SOURCE(BEAKER) (test cypa=9927) Urine, Voided [id number] 19:49:00 Test Item Value Reference Range Comments SODIUM (BEAKER) (test yipc=747) 136 meq/L 136-145 POTASSIUM (BEAKER) (test 5.1 meq/L 3.5-5.1 Specimen slightly hemolyzed dvbh=757) CHLORIDE (BEAKER) (test 104 meq/L 98-107 jssp=815) CO2 (BEAKER) (test uuyf=523) 25 meq/L 22-29 Call if K > 5POCT-GLUCOSE [id number] 11:37:00 Test Item Value Reference Range Comments POC-GLUCOSE METER (BEAKER) 293 mg/dL 70-110 TESTED AT [address] (test vcri=7630) [place] [address] RAD, CHEST, 1 VIEW, NON [id number] 10:22:00Reason for exam:->SOBShould this be performed at the bedside?->YesFINAL REPORT Chest one view Discussion: There is cardiomegaly and interstitial congestion. A small right-sided effusion is noted. No pneumothorax. IMPRESSIONS: Suspected CHF. Signed: Jeannette Nava Verified Date/Time: 05/13/2017 10:22:34 Reading Location: [facility] Radiology Reading Room POCT-GLUCOSE [id number] 08:34:00 Test Item Value Reference Range Comments POC-GLUCOSE METER (BEAKER) 178 mg/dL 70-110 TESTED AT [address] (test igfr=3746) [place] [address] POCT-GLUCOSE [id number] 06:53:00 Test Item Value Reference Range Comments POC-GLUCOSE METER (BEAKER) 167 mg/dL 70-110 TESTED AT [address] (test xekm=8417) [place] [address] [id number] 04:48:00 Test Item Value Reference Range Comments BLOOD UREA NITROGEN (BEAKER) (test jyaj=859) 36 mg/dL 7-21 [id number] 04:48:00 Test Item Value Reference Range Comments SODIUM (BEAKER) (test eqpk=928) 139 meq/L 136-145 POTASSIUM (BEAKER) (test xlpg=373) 5.2 meq/L 3.5-5.1 CHLORIDE (BEAKER) (test eqbj=722) 109 meq/L 98-107 CO2 (BEAKER) (test arjx=989) 23 meq/L 22-29 [id number] 04:48:00 Test Item Value Reference Range Comments CREATININE (BEAKER) (test 1.73 mg/dL 0.57-1.25 bgfe=770) EGFR (BEAKER) (test 30 mL/min/1.73 sq m ESTIMATED GFR IS NOT ybsn=7886) ACCURATE CREATININE CLEARANCE IN PREDICTING GLOMERULAR FILTRATION RATE. ESTIMATED GFR IS NOT APPLICABLE FOR DIALYSIS PATIENTS. CBC (HEMOGRAM ONLY)2017-05-13 04:33:00 Test Item Value Reference Range Comments WHITE BLOOD CELL COUNT (BEAKER) (test uouc=138) 10.2 K/ L 3.5-10.5 RED BLOOD CELL COUNT (BEAKER) (test yqps=326) 4.54 M/ L 3.93-5.22 HEMOGLOBIN (BEAKER) (test eolj=860) 11.4 GM/DL 11.2-15.7 HEMATOCRIT (BEAKER) (test havu=412) 37.6 % 34.1-44.9 MEAN CORPUSCULAR VOLUME (BEAKER) (test gtrh=485) 82.8 fL 79.4-94.8 MEAN CORPUSCULAR HEMOGLOBIN (BEAKER) (test 25.1 pg 25.6-32.2 vfck=024) MEAN CORPUSCULAR HEMOGLOBIN CONC (BEAKER) (test 30.3 GM/DL 32.2-35.5 bmkj=534) RED CELL DISTRIBUTION WIDTH (BEAKER) (test 14.7 % 11.7-14.4 dtgr=054) PLATELET COUNT (BEAKER) (test umoo=433) 194 K/CU MM 150-450 MEAN PLATELET VOLUME (BEAKER) (test mhrc=829) 10.9 fL 9.4-12.3 NUCLEATED RED BLOOD CELLS (BEAKER) (test 0 /100 WBC 0-0 eefh=977) [id number] 23:29:00 Test Item Value Reference Range Comments ACTIVATED CLOTTING TIME 136 sec TESTED AT [address] (BEAKER) (test xbhx=267) [facility] [address] [id number] 20:13:00 Test Item Value Reference Range Comments ACTIVATED CLOTTING TIME 175 sec TESTED AT [address] (BEAKER) (test rlhp=639) [place] [address] [id number] 18:36:00 Test Item Value Reference Range Comments ACTIVATED CLOTTING TIME 202 sec TESTED AT [place] [address] ADDIS (BEAKER) (test rwlz=405) [place] [address] [id number] 18:03:00 Test Item Value Reference Range Comments ACTIVATED CLOTTING TIME 208 sec TESTED AT [place] [address] ADDIS (BEAKER) (test psbu=598) [place] [address] BASIC METABOLIC [id number] 11:57:00 Test Item Value Reference Range Comments SODIUM (BEAKER) (test 139 meq/L 136-145 qgpy=755) POTASSIUM (BEAKER) (test 4.9 meq/L 3.5-5.1 cqud=948) CHLORIDE (BEAKER) (test 107 meq/L 98-107 kvut=195) CO2 (BEAKER) (test 27 meq/L 22-29 ilie=758) BLOOD UREA NITROGEN 36 mg/dL 7-21 (BEAKER) (test krgn=358) CREATININE (BEAKER) (test 1.60 mg/dL 0.57-1.25 zeui=234) GLUCOSE RANDOM (BEAKER) 187 mg/dL 70-105 (test qdhn=697) CALCIUM (BEAKER) (test 8.6 mg/dL 8.4-10.2 xdlu=355) EGFR (BEAKER) (test 33 mL/min/1.73 sq m ESTIMATED GFR IS NOT surh=3335) ACCURATE CREATININE CLEARANCE IN PREDICTING GLOMERULAR FILTRATION RATE. ESTIMATED GFR IS NOT APPLICABLE FOR DIALYSIS PATIENTS. PROTHROMBIN TIME/[id number] 11:15:00 Test Item Value Reference Range Comments PROTIME (BEAKER) (test lrqz=665) 14.8 seconds 11.7-14.7 INR (BEAKER) (test cdpn=497) 1.2 <=5.9 RECOMMENDED COUMADIN/WARFARIN INR THERAPY RANGESSTANDARD DOSE: 2.0 - 3.0 Includes: PROPHYLAXIS forvenous thrombosis, systemic embolization; TREATMENT for venous thrombosis and/or pulmonary embolus.HIGH RISK: Target INR is 2.5-3.5 for patients with mechanical heart valves.Within 24 hours, if on CoumadinCBC W/ PLT COUNT & AUTO [id number] 11:01:00 Test Item Value Reference Range Comments WHITE BLOOD CELL COUNT (BEAKER) (test kwks=447) 9.1 K/ L 3.5-10.5 RED BLOOD CELL COUNT (BEAKER) (test cgsh=790) 4.62 M/ L 3.93-5.22 HEMOGLOBIN (BEAKER) (test mgvn=721) 11.7 GM/DL 11.2-15.7 HEMATOCRIT (BEAKER) (test abaz=991) 38.0 % 34.1-44.9 MEAN CORPUSCULAR VOLUME (BEAKER) (test vexs=459) 82.3 fL 79.4-94.8 MEAN CORPUSCULAR HEMOGLOBIN (BEAKER) (test 25.3 pg 25.6-32.2 qwmu=521) MEAN CORPUSCULAR HEMOGLOBIN CONC (BEAKER) (test 30.8 GM/DL 32.2-35.5 iane=235) RED CELL DISTRIBUTION WIDTH (BEAKER) (test 14.5 % 11.7-14.4 ratu=218) PLATELET COUNT (BEAKER) (test zdcr=329) 205 K/CU MM 150-450 MEAN PLATELET VOLUME (BEAKER) (test uajk=431) 10.6 fL 9.4-12.3 NUCLEATED RED BLOOD CELLS (BEAKER) (test 0 /100 WBC 0-0 bsum=714) NEUTROPHILS RELATIVE PERCENT (BEAKER) (test 59 % vzgd=977) LYMPHOCYTES RELATIVE PERCENT (BEAKER) (test 32 % mlbc=058) MONOCYTES RELATIVE PERCENT (BEAKER) (test 5 % wgvb=345) EOSINOPHILS RELATIVE PERCENT (BEAKER) (test 3 % iahu=783) BASOPHILS RELATIVE PERCENT (BEAKER) (test 1 % vsmv=333) NEUTROPHILS ABSOLUTE COUNT (BEAKER) (test 5.36 K/ L 1.56-6.13 ezoh=170) LYMPHOCYTES ABSOLUTE COUNT (BEAKER) (test 2.86 K/ L 1.18-3.74 teoq=943) MONOCYTES ABSOLUTE COUNT (BEAKER) (test 0.48 K/ L 0.24-0.36 avhl=689) EOSINOPHILS ABSOLUTE COUNT (BEAKER) (test 0.27 K/ L 0.04-0.36 lnfu=947) BASOPHILS ABSOLUTE COUNT (BEAKER) (test 0.08 K/ L 0.01-0.08 hrye=010) IMMATURE GRANULOCYTES-RELATIVE PERCENT (BEAKER) 0 % 0-1 (test wpsg=0094) POCT-GLUCOSE [id number] 12:35:00 Test Item Value Reference Range Comments POC-GLUCOSE METER (BEAKER) 249 mg/dL 70-110 TESTED AT [address] (test ldqz=4905) [place] [address] POCT-GLUCOSE [id number] 09:10:00 Test Item Value Reference Range Comments POC-GLUCOSE METER (BEAKER) 155 mg/dL 70-110 TESTED AT [address] (test lhkt=9551) [place] [id number] BASIC METABOLIC [id number] 05:39:00 Test Item Value Reference Range Comments SODIUM (BEAKER) (test 138 meq/L 136-145 ntxc=755) POTASSIUM (BEAKER) (test 4.7 meq/L 3.5-5.1 kocn=126) CHLORIDE (BEAKER) (test 107 meq/L 98-107 ymmz=326) CO2 (BEAKER) (test 25 meq/L 22-29 tndo=994) BLOOD UREA NITROGEN 36 mg/dL 7-21 (BEAKER) (test ckmu=841) CREATININE (BEAKER) (test 1.75 mg/dL 0.57-1.25 yuqv=568) GLUCOSE RANDOM (BEAKER) 126 mg/dL 70-105 (test fxlz=662) CALCIUM (BEAKER) (test 8.2 mg/dL 8.4-10.2 ijdf=403) EGFR (BEAKER) (test 29 mL/min/1.73 sq m ESTIMATED GFR IS NOT gnaf=9006) ACCURATE CREATININE CLEARANCE IN PREDICTING GLOMERULAR FILTRATION RATE. ESTIMATED GFR IS NOT APPLICABLE FOR DIALYSIS PATIENTS. [id number] 05:27:00 Test Item Value Reference Range Comments PHOSPHORUS (BEAKER) (test gomr=693) 5.0 mg/dL 2.3-4.7 [id number] 05:27:00 Test Item Value Reference Range Comments MAGNESIUM (BEAKER) (test hqwn=170) 1.6 mg/dL 1.6-2.6 POCT-GLUCOSE [id number] 05:25:00 Test Item Value Reference Range Comments POC-GLUCOSE METER (BEAKER) 144 mg/dL 70-110 TESTED AT [address] (test fqcu=3041) [place] [address] PROTHROMBIN TIME/[id number] 04:58:00 Test Item Value Reference Range Comments PROTIME (BEAKER) (test fbtg=207) 14.2 seconds 11.7-14.7 INR (BEAKER) (test xcxg=255) 1.1 <=5.9 RECOMMENDED COUMADIN/WARFARIN INR THERAPY RANGESSTANDARD DOSE: 2.0 - 3.0 Includes: PROPHYLAXIS forvenous thrombosis, systemic embolization; TREATMENT for venous thrombosis and/or pulmonary embolus.HIGH RISK: Target INR is 2.5-3.5 for patients with mechanical heart valves.POCT-GLUCOSE [id number] 23:55:00 Test Item Value Reference Range Comments POC-GLUCOSE METER (BEAKER) 86 mg/dL 70-110 TESTED AT [address] (test tfva=0526) [place] [address] B-TYPE NATRIURETIC FACTOR (BNP)2017-04-22 18:13:00 Test Item Value Reference Range Comments B-TYPE NATRIURETIC PEPTIDE (BEAKER) (test 1203 pg/mL 0-100 aesl=531) POCT-GLUCOSE [id number] 17:36:00 Test Item Value Reference Range Comments POC-GLUCOSE METER (BEAKER) 259 mg/dL 70-110 TESTED AT [address] (test tzbl=2194) [place] [address] HEMOGLOBIN [id number] 14:24:00 Test Item Value Reference Range Comments HEMOGLOBIN A1C (BEAKER) (test owno=741) 10.5 % 4.3-6.1 POCT-GLUCOSE [id number] 12:34:00 Test Item Value Reference Range Comments POC-GLUCOSE METER (BEAKER) 207 mg/dL 70-110 TESTED AT [address] (test gble=5731) [place] [address] [id number] 07:53:00 Test Item Value Reference Range Comments PHOSPHORUS (BEAKER) (test unsd=502) 3.9 mg/dL 2.3-4.7 [id number] 07:53:00 Test Item Value Reference Range Comments MAGNESIUM (BEAKER) (test raxj=071) 1.6 mg/dL 1.6-2.6 BASIC METABOLIC [id number] 07:53:00 Test Item Value Reference Range Comments SODIUM (BEAKER) (test 139 meq/L 136-145 gtfl=952) POTASSIUM (BEAKER) (test 4.5 meq/L 3.5-5.1 przr=984) CHLORIDE (BEAKER) (test 108 meq/L 98-107 zhub=360) CO2 (BEAKER) (test 25 meq/L 22-29 xhjc=338) BLOOD UREA NITROGEN 29 mg/dL 7-21 (BEAKER) (test pthg=464) CREATININE (BEAKER) (test 1.54 mg/dL 0.57-1.25 vuqx=116) GLUCOSE RANDOM (BEAKER) 211 mg/dL 70-105 (test whwh=949) CALCIUM (BEAKER) (test 8.5 mg/dL 8.4-10.2 udkq=049) EGFR (BEAKER) (test 34 mL/min/1.73 sq m ESTIMATED GFR IS NOT yeyu=7979) ACCURATE CREATININE CLEARANCE IN PREDICTING GLOMERULAR FILTRATION RATE. ESTIMATED GFR IS NOT APPLICABLE FOR DIALYSIS PATIENTS. TROPONIN [id number] 07:29:00 Test Item Value Reference Range Comments TROPONIN I (BEAKER) (test kuwj=253) 0.05 ng/mL 0.00-0.03 Troponin I (TnI) levels [...] acidosis, acute neurological disease, and persistent tachyarrhythmia.PROTHROMBIN TIME/[id number] 07:01:00 Test Item Value Reference Range Comments PROTIME (BEAKER) (test tgbe=800) 13.8 seconds 11.7-14.7 INR (BEAKER) (test fpqy=145) 1.1 <=5.9 RECOMMENDED COUMADIN/WARFARIN INR THERAPY RANGESSTANDARD DOSE: 2.0 - 3.0 Includes: PROPHYLAXIS forvenous thrombosis, systemic embolization; TREATMENT for venous thrombosis and/or pulmonary embolus.HIGH RISK: Target INR is 2.5-3.5 for patients with mechanical heart valves.POCT-GLUCOSE [id number] 06:28:00 Test Item Value Reference Range Comments POC-GLUCOSE METER (BEAKER) 198 mg/dL 70-110 TESTED AT [address] (test dnnt=8410) [place] [id number] CREATINE KINASE (CK), TOTAL AND [id number] 00:49:00 Test Item Value Reference Range Comments CREATINE KINASE TOTAL (BEAKER) (test dyqe=279) 69 U/L 29-200 CREATINE KINASE-MB (BEAKER) (test ghnc=945) 4.3 ng/mL 0.0-6.6 CREATINE KINASE-MB INDEX (BEAKER) (test ympt=595) 6.2 % CK-MB Reference Range:<6.7 Normal6.7-10.0 Borderline>10.0 AbnormalTROPONIN [id number] 00:49:00 Test Item Value Reference Range Comments TROPONIN I (BEAKER) (test noin=096) 0.05 ng/mL 0.00-0.03 Troponin I (TnI) levels [...] acidosis, acute neurological disease, and persistent tachyarrhythmia.POCT-GLUCOSE [id number] 20:44:00 Test Item Value Reference Range Comments POC-GLUCOSE METER (BEAKER) 269 mg/dL 70-110 TESTED AT [address] (test lnkr=9555) [place] [id number]
--- OUTSIDE RECORDS SUMMARY | 2019-04-05 11:57 | XMS REPORT ---
[...] Status Dosage System Date Date Allopurinol ND [id number] 100 MG Oral Active TAKE 1 TABLET BY MOUTH TWICE A DAY NIFEdipine ER ND 30053696346 60 MG Oral Active TAKE 1 TABLET BY MOUTH EVERY DAY ProAir HFA ND 49196294955 108 (90 Base) Active INHALE 2 MCG/ACT PUFFS 3 TIMES A DAY NEEDED FOR SHORTNESS OF BREATH Furosemide ND 95104912470 40 MG Active TAKE BY MOUTH 1 TABLET NEEDED FOR SHORTNESS OF BREATH MAY TAKE NEEDED IF WITH INCREASE EDEMA Acetaminophen-C ND 03606212117 300-30 MG Oral Active (Schedule odeine #3 III Drug) TAKE 1 TABLET BY MOUTH EVERY 6 HOURS NEEDED FOR PAIN Carvedilol [facility] 40465544611 12.5 MG Oral Active TAKE 1 TABLET BY MOUTH TWICE A DAY Isosorbide [facility] 54236264407 30 MG Oral Active TAKE 1 Mononitrate ER TABLET BY MOUTH EVERY DAY Atorvastatin [facility] 14412486670 40 MG Oral Active TAKE 1 Calcium TABLET BY MOUTH EVERY DAY Levemir [facility] 49082548517 100 UNIT/ML Active INJECT 10 FlexTouch Subcutaneous UNITS BELOW THE SKIN IN THE MORNING Vitamin D [facility] 75660903781 09906 UNIT Oral Active TAKE ONE (Ergocalciferol CAPSULE BY ) MOUTH ONE TIME PER WEEK BuPROPion HCl [facility] 72685376624 75 MG Oral Active TAKE 1 TABLET BY MOUTH EVERY DAY Clopidogrel [facility] 64472459448 75 MG Oral Active TAKE 1 Bisulfate TABLET BY MOUTH EVERY DAY Gabapentin [facility] 80877135528 100 MG Oral Active TAKE 1 CAPSULE BY MOUTH THREE TIMES A DAY HydrALAZINE HCl [facility] 13749652914 100 MG Active TAKE 1 TABLET BY MOUTH THREE TIMES A DAY Advair Diskus [facility] 03677871155 250-50 MCG/DOSE Active INHALE 1 DOSE BY MOUTH TWICE DAILY. RINSE MOUTH AFTER USE Trazodone HCl [facility] 65732752708 50 MG Oral Active TAKE 1 TABLET BY MOUTH EVERYDAY AT BEDTIME Results No Known Results Summary Purpose eClinicalWorks Submission
--- NOTE | 2019-04-05 13:43 | RAD REPORT ---
EXAM DESCRIPTION: RAD - Shoulder Left 2 View - 04/05/2019 1:36 pm CLINICAL HISTORY: PAIN COMPARISON: Shoulder Left 2 View dated 08/25/2012 FINDINGS: Mild AC joint and glenohumeral joint arthritic changes are present. No fracture or disloca tion. No aggressive marrow lesion.
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
--- NOTE | 2019-04-05 14:49 | EDPHYS ---
Physician Documentation [facility] Name: Christy Priest Age: 64 yrs Sex: Female : 1955 Arrival Date: 04/05/2019 Time: 11:49 Bed 15 Private MD: ED Physician Rc Moreno Historical: - Allergies: 04/05 12:07 Augmentin; tw2 12:07 basil; tw2 12:07 Morphine; tw2 12:07 Nitroglycerin; tw2 12:07 Tramadol HCl; tw2 12:07 Trazodone; tw2 12:07 Vancomycin; tw2 - Home Meds: 12:07 Plavix Oral [Active]; Hydralazine Oral [Active]; gabapentin Oral [Active]; insulin tw2 [Active]; Lasix Oral [Active]; - PMHx: 12:07 CHF; COPD; Diabetes - IDDM; ESRD; High Cholesterol; Hypertension; triple bypass; tw2 uterine cancer; - PSHx: 12:07 Cholecystectomy; Hysterectomy; triple bypass; tw2 - Immunization history:: Adult Immunizations. - Social history:: Smoking status: . - Ebola Screening: : Patient denies travel to an Ebola-affected area in the 21 days before illness onset. Vital Signs: 12:06 BP 131 / 56; Pulse 60; Resp 18; Temp 97.3(TE); Pulse Ox 95% on R/A; Weight 96.16 kg tw2 (R); Height 5 ft. 7 in. (170.18 cm); Pain 8/10; 14:05 BP 125 / 60; Pulse 51; Resp 17 S; Pulse Ox 91% on R/A; Pain 8/10; ca1 14:57 BP 129 / 65; Pulse 59; Resp 17 S; Pulse Ox 96% on R/A; ca1 12:06 Body Mass Index 33.20 (96.16 kg, 170.18 cm) tw2 MDM: 13:58 Patient medically screened. tw4 04/05 12:33 Order name: INGRID Shoulder LEFT 2 view tw2 Administered Medications: 14:50 Drug: [place] 5 mg-325 mg 1 tabs Route: PO; ca1 14:59 Follow up: Response: No adverse reaction; RASS: Alert and Calm (0) ca1 Disposition: 04/05/19 14:47 Discharged to Home. Impression: Contusion of left shoulder. - Condition is Stable. - Discharge Instructions: Contusion. - Prescriptions for Tylenol- Codeine #3 300-30 mg Oral Tablet - take 2 tablet by ORAL route every 6 hours As needed; 6 tablet. - Medication Reconciliation Form, Thank You Letter, Antibiotic Education, Prescription Opioid Use form. - Follow up: Private Physician; When: Upon discharge from the Emergency Department; Reason: Recheck today's complaints, Continuance of care. Follow up: Aba Jiang MD; When: Upon discharge from the Emergency Department; Reason: Recheck today's complaints, Continuance of care. - Problem is new. - Symptoms are unchanged. Signatures: Dispatcher [employer] EDMS Hannah Coker RN RN tw2 Rc Moreno MD MD tw4 Tia Rodriguez RN RN ca1 Corrections: (The following items were deleted from the chart) 15:00 14:47 04/05/2019 14:47 Discharged to Home. Impression: Contusion of left shoulder. ca1 Condition is Stable. Forms are Medication Reconciliation Form, Thank You Letter, Antibiotic Education, Prescription Opioid Use. Follow up: Private Physician; When: Upon discharge from the Emergency Department; Reason: Recheck today's complaints, Continuance of care. Follow up: Aba Jiang; When: Upon discharge from the Emergency Department; Reason: Recheck today's complaints, Continuance of care. Problem is new. Symptoms are unchanged. tw4
[2019-04-05] MEDS ORDERED: HYDROCODONE/APAP 5/325 MG TAB ONE (14:51)
[2019-04-05 15:14] VITALS: TEMP 97.3
[2019-04-05 15:17] VITALS: BP 129/65; O2SAT 96
== END 2019-04-05 15:00 | disposition home or self-care (01) ==
LOC: ER 11:47
DX: S40.012A Contusion of left shoulder, initial encounter (principal); W18.30XA Fall on same level, unspecified, initial encounter; Y93.9 Activity, unspecified; Y92.9 Unspecified place or not applicable; Z79.4 Long term (current) use of insulin; E78.00 Pure hypercholesterolemia, unspecified; E11.22 Type 2 diabetes mellitus with diabetic chronic kidney disease; I13.2 Hypertensive heart and chronic kidney disease with heart failure and with stage 5 chronic kidney disease, or end stage renal disease; I50.9 Heart failure, unspecified; N18.6 End stage renal disease
CPT/HCPCS: 99283

== ENCOUNTER 2019-06-17 22:40 | Observation (INO) | payer MEDICAID ==
--- OUTSIDE RECORDS SUMMARY | 2019-06-17 22:49 | XMS REPORT ---
:1955 [facility] Address [address] [place] [address] Care Team Providers Name Role Phone RAJENDRA [...] (BEAKER) (test 220 mg/dL 70-110 TESTED AT [facility] [address] nexh=1664) [facility] [address] BASIC METABOLIC [id number] 15:47:00 Test Item Value Reference Range Comments SODIUM (BEAKER) (test 135 meq/L 136-145 auuz=917) POTASSIUM (BEAKER) (test 4.8 meq/L 3.5-5.1 cdfn=302) CHLORIDE (BEAKER) (test 102 meq/L 98-107 rnsy=041) CO2 (BEAKER) (test 25 meq/L 22-29 uazn=790) BLOOD UREA NITROGEN 51 mg/dL 7-21 (BEAKER) (test arrd=420) CREATININE (BEAKER) (test 1.99 mg/dL 0.57-1.25 xgru=711) GLUCOSE RANDOM (BEAKER) 201 mg/dL 70-105 (test tdlp=366) CALCIUM (BEAKER) (test 8.8 mg/dL 8.4-10.2 ctzv=556) EGFR (BEAKER) (test 25 mL/min/1.73 sq m ESTIMATED GFR IS NOT kdny=4463) ACCURATE CREATININE CLEARANCE IN PREDICTING GLOMERULAR FILTRATION RATE. ESTIMATED GFR IS NOT APPLICABLE FOR DIALYSIS PATIENTS. POCT-GLUCOSE [id number] 11:30:00 Test Item Value Reference Range Comments POC-GLUCOSE METER (BEAKER) 268 mg/dL 70-110 TESTED AT [facility] [address] [facility] [facility] (test puer=0016) [facility] [address] POCT-GLUCOSE [id number] 07:08:00 Test Item Value Reference Range Comments POC-GLUCOSE METER (BEAKER) 208 mg/dL 70-110 TESTED AT [place] [id number] [facility] (test vhzr=3835) [facility] [address] CALCIUM, [id number] 06:47:00 Test Item Value Reference Range Comments CALCIUM IONIZED (BEAKER) (test zwcp=808) 1.11 mmol/L 1.12-1.27 PH, BLOOD (BEAKER) (test alcq=9024) 7.40 BASIC METABOLIC [id number] 06:40:00 Test Item Value Reference Range Comments SODIUM (BEAKER) (test 134 meq/L 136-145 rfkl=693) POTASSIUM (BEAKER) (test 4.9 meq/L 3.5-5.1 gdxb=937) CHLORIDE (BEAKER) (test 103 meq/L 98-107 olcn=192) CO2 (BEAKER) (test 24 meq/L 22-29 objz=509) BLOOD UREA NITROGEN 53 mg/dL 7-21 (BEAKER) (test ehqf=328) CREATININE (BEAKER) (test 2.02 mg/dL 0.57-1.25 rwpt=136) GLUCOSE RANDOM (BEAKER) 186 mg/dL 70-105 (test egkt=333) CALCIUM (BEAKER) (test 9.1 mg/dL 8.4-10.2 mhmg=266) EGFR (BEAKER) (test 25 mL/min/1.73 sq m ESTIMATED GFR IS NOT octg=9496) ACCURATE CREATININE CLEARANCE IN PREDICTING GLOMERULAR FILTRATION RATE. ESTIMATED GFR IS NOT APPLICABLE FOR DIALYSIS PATIENTS. [id number] 06:33:00 Test Item Value Reference Range Comments PHOSPHORUS (BEAKER) (test bncg=756) 5.1 mg/dL 2.3-4.7 [id number] 06:33:00 Test Item Value Reference Range Comments MAGNESIUM (BEAKER) (test sqgg=257) 2.0 mg/dL 1.6-2.6 LACTIC ACID, VENOUS, WHOLE [id number] 06:02:00 Test Item Value Reference Range Comments LACTATE BLOOD VENOUS (2) (BEAKER) (test 0.8 mmol/L 0.5-2.2 vkxd=8285) Effective 08/02/2015: Units/Reference Range ChangeNew: 0.5-2.2 mmol/L Previous: 5 -20 mg/dLCBC W/PLT COUNT & AUTO [id number] 05:54:00 Test Item Value Reference Range Comments WHITE BLOOD CELL COUNT (BEAKER) (test mxhm=307) 7.1 K/ L 3.5-10.5 RED BLOOD CELL COUNT (BEAKER) (test nmsu=820) 3.68 M/ L 3.93-5.22 HEMOGLOBIN (BEAKER) (test wfre=825) 9.0 GM/DL 11.2-15.7 HEMATOCRIT (BEAKER) (test hqlg=317) 29.6 % 34.1-44.9 MEAN CORPUSCULAR VOLUME (BEAKER) (test zvpj=124) 80.4 fL 79.4-94.8 MEAN CORPUSCULAR HEMOGLOBIN (BEAKER) (test 24.5 pg 25.6-32.2 vdxj=594) MEAN CORPUSCULAR HEMOGLOBIN CONC (BEAKER) (test 30.4 GM/DL 32.2-35.5 cuzu=246) RED CELL DISTRIBUTION WIDTH (BEAKER) (test 16.5 % 11.7-14.4 uegv=163) PLATELET COUNT (BEAKER) (test cznn=257) 215 K/CU MM 150-450 MEAN PLATELET VOLUME (BEAKER) (test zjcm=162) 9.5 fL 9.4-12.3 NUCLEATED RED BLOOD CELLS (BEAKER) (test 0 /100 WBC 0-0 rzql=201) NEUTROPHILS RELATIVE PERCENT (BEAKER) (test 42 % nvlq=344) LYMPHOCYTES RELATIVE PERCENT (BEAKER) (test 46 % hyrj=473) MONOCYTES RELATIVE PERCENT (BEAKER) (test 6 % dwve=668) EOSINOPHILS RELATIVE PERCENT (BEAKER) (test 5 % caii=011) BASOPHILS RELATIVE PERCENT (BEAKER) (test 1 % zphv=522) NEUTROPHILS ABSOLUTE COUNT (BEAKER) (test 2.96 K/ L 1.56-6.13 uotz=086) LYMPHOCYTES ABSOLUTE COUNT (BEAKER) (test 3.27 K/ L 1.18-3.74 davy=790) MONOCYTES ABSOLUTE COUNT (BEAKER) (test 0.41 K/ L 0.24-0.36 nazx=382) EOSINOPHILS ABSOLUTE COUNT (BEAKER) (test 0.34 K/ L 0.04-0.36 rpls=232) BASOPHILS ABSOLUTE COUNT (BEAKER) (test 0.08 K/ L 0.01-0.08 zcyf=405) IMMATURE GRANULOCYTES-RELATIVE PERCENT (BEAKER) 0 % 0-1 (test qulw=0758) POCT-GLUCOSE [id number] 21:30:00 Test Item Value Reference Range Comments POC-GLUCOSE METER (BEAKER) 248 mg/dL 70-110 TESTED AT [address] (test gisc=5879) [facility] [address] RAD, [id number] 21:22:00Reason for exam:->fall, tailbone painFINAL REPORT RAD, [...] Verified Date/Time: 2017 21:22:03 Reading Location: [address] Reading Room POCT- GLUCOSE [id number] 17:37:00 Test Item Value Reference Range Comments POC-GLUCOSE METER (BEAKER) 222 mg/dL 70-110 TESTED AT [address] (test yqpe=5704) [facility] [address] POCT-GLUCOSE [id number] 13:55:00 Test Item Value Reference Range Comments POC-GLUCOSE METER (BEAKER) 194 mg/dL 70-110 TESTED AT [facility] [address] [facility] (test ltyz=7332) [facility] [address] POCT-GLUCOSE [id number] 12:34:00 Test Item Value Reference Range Comments POC-GLUCOSE METER (BEAKER) 229 mg/dL 70-110 TESTED AT [address] (test fssr=7263) [facility] [address] POCT-GLUCOSE [id number] 08:00:00 Test Item Value Reference Range Comments POC-GLUCOSE METER (BEAKER) 159 mg/dL 70-110 TESTED AT [address] (test hqqk=1758) [facility] [address] CALCIUM, [id number] 06:00:00 Test Item Value Reference Range Comments CALCIUM IONIZED (BEAKER) (test owel=311) 1.05 mmol/L 1.12-1.27 PH, BLOOD (BEAKER) (test radu=7494) 7.45 [id number] 05:59:00 Test Item Value Reference Range Comments PHOSPHORUS (BEAKER) (test bodl=461) 4.8 mg/dL 2.3-4.7 [id number] 05:59:00 Test Item Value Reference Range Comments MAGNESIUM (BEAKER) (test vgoq=947) 2.0 mg/dL 1.6-2.6 BASIC METABOLIC [id number] 05:59:00 Test Item Value Reference Range Comments SODIUM (BEAKER) (test 134 meq/L 136-145 gnjv=403) POTASSIUM (BEAKER) (test 4.4 meq/L 3.5-5.1 yxwn=773) CHLORIDE (BEAKER) (test 103 meq/L 98-107 etwe=258) CO2 (BEAKER) (test 23 meq/L 22-29 thbe=343) BLOOD UREA NITROGEN 49 mg/dL 7-21 (BEAKER) (test auox=916) CREATININE (BEAKER) (test 1.69 mg/dL 0.57-1.25 uvmx=151) GLUCOSE RANDOM (BEAKER) 138 mg/dL 70-105 (test rdxn=711) CALCIUM (BEAKER) (test 8.7 mg/dL 8.4-10.2 cync=273) EGFR (BEAKER) (test 31 mL/min/1.73 sq m ESTIMATED GFR IS NOT zkox=5870) ACCURATE CREATININE CLEARANCE IN PREDICTING GLOMERULAR FILTRATION RATE. ESTIMATED GFR IS NOT APPLICABLE FOR DIALYSIS PATIENTS. CREATINE KINASE (CK)2017-09-04 05:59:00 Test Item Value Reference Range Comments CREATINE KINASE TOTAL (BEAKER) (test qayr=824) 45 U/L 29-200 CBC W/PLT COUNT & AUTO [id number] 05:32:00 Test Item Value Reference Range Comments WHITE BLOOD CELL COUNT (BEAKER) (test polq=733) 6.1 K/ L 3.5-10.5 RED BLOOD CELL COUNT (BEAKER) (test hxpz=474) 3.69 M/ L 3.93-5.22 HEMOGLOBIN (BEAKER) (test cgsw=206) 8.8 GM/DL 11.2-15.7 HEMATOCRIT (BEAKER) (test ymqn=599) 29.3 % 34.1-44.9 MEAN CORPUSCULAR VOLUME (BEAKER) (test ahdh=384) 79.4 fL 79.4-94.8 MEAN CORPUSCULAR HEMOGLOBIN (BEAKER) (test 23.8 pg 25.6-32.2 ygcn=069) MEAN CORPUSCULAR HEMOGLOBIN CONC (BEAKER) (test 30.0 GM/DL 32.2-35.5 kmbx=230) RED CELL DISTRIBUTION WIDTH (BEAKER) (test 16.3 % 11.7-14.4 djlo=003) PLATELET COUNT (BEAKER) (test sdhd=952) 219 K/CU MM 150-450 MEAN PLATELET VOLUME (BEAKER) (test kqmo=430) 9.4 fL 9.4-12.3 NUCLEATED RED BLOOD CELLS (BEAKER) (test 0 /100 WBC 0-0 ctek=866) NEUTROPHILS RELATIVE PERCENT (BEAKER) (test 44 % mztn=738) LYMPHOCYTES RELATIVE PERCENT (BEAKER) (test 43 % rjkc=713) MONOCYTES RELATIVE PERCENT (BEAKER) (test 6 % tgku=326) EOSINOPHILS RELATIVE PERCENT (BEAKER) (test 6 % ldoc=800) BASOPHILS RELATIVE PERCENT (BEAKER) (test 1 % rwja=738) NEUTROPHILS ABSOLUTE COUNT (BEAKER) (test 2.67 K/ L 1.56-6.13 omic=429) LYMPHOCYTES ABSOLUTE COUNT (BEAKER) (test 2.66 K/ L 1.18-3.74 rcaq=797) MONOCYTES ABSOLUTE COUNT (BEAKER) (test 0.38 K/ L 0.24-0.36 skct=708) EOSINOPHILS ABSOLUTE COUNT (BEAKER) (test 0.37 K/ L 0.04-0.36 asfx=010) BASOPHILS ABSOLUTE COUNT (BEAKER) (test 0.05 K/ L 0.01-0.08 lvmj=006) IMMATURE GRANULOCYTES-RELATIVE PERCENT (BEAKER) 0 % 0-1 (test whws=7904) POCT-GLUCOSE [id number] 20:36:00 Test Item Value Reference Range Comments POC-GLUCOSE METER (BEAKER) 211 mg/dL 70-110 TESTED AT [address] (test xujq=0618) [place] [address] CREATININE, RANDOM [id number] 19:55:00 Test Item Value Reference Range Comments CREATININE URINE (BEAKER) (test zzud=932) 16.1 mg/dL Reference Range: No NormalsPROTEIN, RANDOM [id number] 19:55:00 Test Item Value Reference Range Comments PROTEIN, URINE (BEAKER) (test ppdl=2673) 102 mg/dL 0-14 POCT-GLUCOSE [id number] 18:04:00 Test Item Value Reference Range Comments POC-GLUCOSE METER (BEAKER) 177 mg/dL 70-110 TESTED AT [address] (test cloi=9600) [place] [address] POCT-GLUCOSE [id number] 11:59:00 Test Item Value Reference Range Comments POC-GLUCOSE METER (BEAKER) 244 mg/dL 70-110 TESTED AT [address] (test vvie=4658) [place] [address] POCT-GLUCOSE [id number] 07:53:00 Test Item Value Reference Range Comments POC-GLUCOSE METER (BEAKER) 160 mg/dL 70-110 TESTED AT [address] (test askg=4537) [place] [address] BASIC METABOLIC [id number] 05:29:00 Test Item Value Reference Range Comments SODIUM (BEAKER) (test 136 meq/L 136-145 ukgf=790) POTASSIUM (BEAKER) (test 4.5 meq/L 3.5-5.1 brrt=653) CHLORIDE (BEAKER) (test 105 meq/L 98-107 rutr=710) CO2 (BEAKER) (test 24 meq/L 22-29 uzks=125) BLOOD UREA NITROGEN 51 mg/dL 7-21 (BEAKER) (test mxyw=317) CREATININE (BEAKER) (test 1.76 mg/dL 0.57-1.25 zufp=020) GLUCOSE RANDOM (BEAKER) 149 mg/dL 70-105 (test xocw=876) CALCIUM (BEAKER) (test 8.9 mg/dL 8.4-10.2 gpzi=181) EGFR (BEAKER) (test 29 mL/min/1.73 sq m ESTIMATED GFR IS NOT hwzj=8306) ACCURATE CREATININE CLEARANCE IN PREDICTING GLOMERULAR FILTRATION RATE. ESTIMATED GFR IS NOT APPLICABLE FOR DIALYSIS PATIENTS. [id number] 05:21:00 Test Item Value Reference Range Comments MAGNESIUM (BEAKER) (test gwhj=911) 2.1 mg/dL 1.6-2.6 HEPATIC FUNCTION [id number] 05:21:00 Test Item Value Reference Range Comments TOTAL PROTEIN (BEAKER) (test strm=000) 6.8 gm/dL 6.0-8.3 ALBUMIN (BEAKER) (test xwkc=3033) 2.9 g/dL 3.5-5.0 BILIRUBIN TOTAL (BEAKER) (test dnxa=312) 0.5 mg/dL 0.2-1.2 BILIRUBIN DIRECT (BEAKER) (test pnuk=099) 0.2 mg/dL 0.1-0.5 ALKALINE PHOSPHATASE (BEAKER) (test hisq=449) 173 U/L 40-150 AST (SGOT) (BEAKER) (test ykji=197) 25 U/L 5-34 ALT (SGPT) (BEAKER) (test xcle=176) 23 U/L 6-55 TROPONIN [id number] 05:18:00 Test Item Value Reference Range Comments TROPONIN I (BEAKER) (test lyft=900) 0.05 ng/mL 0.00-0.03 Troponin I (TnI) levels [...] and persistent tachyarrhythmia.CBC W/PLT COUNT & AUTO [id number] 04:59:00 Test Item Value Reference Range Comments WHITE BLOOD CELL COUNT (BEAKER) (test ltio=007) 6.9 K/ L 3.5-10.5 RED BLOOD CELL COUNT (BEAKER) (test gcfd=189) 3.75 M/ L 3.93-5.22 HEMOGLOBIN (BEAKER) (test uywi=388) 8.9 GM/DL 11.2-15.7 HEMATOCRIT (BEAKER) (test zgny=362) 29.7 % 34.1-44.9 MEAN CORPUSCULAR VOLUME (BEAKER) (test dupl=161) 79.2 fL 79.4-94.8 MEAN CORPUSCULAR HEMOGLOBIN (BEAKER) (test 23.7 pg 25.6-32.2 dvpk=509) MEAN CORPUSCULAR HEMOGLOBIN CONC (BEAKER) (test 30.0 GM/DL 32.2-35.5 vbfn=744) RED CELL DISTRIBUTION WIDTH (BEAKER) (test 16.2 % 11.7-14.4 fkep=462) PLATELET COUNT (BEAKER) (test srjc=117) 240 K/CU MM 150-450 MEAN PLATELET VOLUME (BEAKER) (test qjzf=846) 9.6 fL 9.4-12.3 NUCLEATED RED BLOOD CELLS (BEAKER) (test 0 /100 WBC 0-0 dsfn=407) NEUTROPHILS RELATIVE PERCENT (BEAKER) (test 48 % scmd=501) LYMPHOCYTES RELATIVE PERCENT (BEAKER) (test 40 % qabw=351) MONOCYTES RELATIVE PERCENT (BEAKER) (test 6 % sbpu=133) EOSINOPHILS RELATIVE PERCENT (BEAKER) (test 5 % ltvj=032) BASOPHILS RELATIVE PERCENT (BEAKER) (test 1 % xutp=407) NEUTROPHILS ABSOLUTE COUNT (BEAKER) (test 3.32 K/ L 1.56-6.13 hyej=583) LYMPHOCYTES ABSOLUTE COUNT (BEAKER) (test 2.76 K/ L 1.18-3.74 vhrx=430) MONOCYTES ABSOLUTE COUNT (BEAKER) (test 0.39 K/ L 0.24-0.36 wuqa=936) EOSINOPHILS ABSOLUTE COUNT (BEAKER) (test 0.36 K/ L 0.04-0.36 cpan=415) BASOPHILS ABSOLUTE COUNT (BEAKER) (test 0.06 K/ L 0.01-0.08 vbig=419) IMMATURE GRANULOCYTES-RELATIVE PERCENT (BEAKER) 0 % 0-1 (test hehz=3454) TROPONIN [id number] 23:40:00 Test Item Value Reference Range Comments TROPONIN I (BEAKER) (test bvai=588) 0.04 ng/mL 0.00-0.03 Troponin I (TnI) levels [...] acidosis, acute neurological disease, and persistent tachyarrhythmia.POCT-GLUCOSE [id number] 22:51:00 Test Item Value Reference Range Comments POC-GLUCOSE METER (BEAKER) 214 mg/dL 70-110 TESTED AT [address] (test cnuc=6403) [facility] [address] RAD, CHEST, 1 VIEW, NON [id number] 21:42:00Reason for exam:->CHEST PAINShould this be performed at the bedside?->YesFINAL REPORT RAD, CHEST, 1 VIEW, NON DEPT INDICATION: CHEST PAIN COMPARISON: Chest x -ray 4 weeks ago TECHNIQUE: Single frontal view of the chest. IMPRESSION: Cardiomegaly.Mild pulmonary interstitial edema with a small right-sided effusion.No acute osseous abnormality. Signed: Dario Abraham MDReport Verified Date/Time: 09/02/2017 21:42:11 Reading Location: [address] Reading Room CREATININE, RANDOM [id number] 21:10:00 Test Item Value Reference Range Comments CREATININE URINE (BEAKER) (test xplo=734) 35.5 mg/dL Reference Range: No NormalsSODIUM, RANDOM [id number] 21:10:00 Test Item Value Reference Range Comments SODIUM URINE (BEAKER) (test hnqq=875) 80 meq/L Reference Range: No NormalsURINALYSIS W/ [id number] 20:59:00 Test Item Value Reference Range Comments COLOR (BEAKER) (test rynb=026) Light Yellow CLARITY (BEAKER) (test jqdx=719) Clear SPECIFIC GRAVITY UA (BEAKER) (test tahb=811) 1.008 1.001-1.035 PH UA (BEAKER) (test jqfo=544) 6.5 5.0-8.0 PROTEIN UA (BEAKER) (test yuia=292) 200 mg/dL Negative GLUCOSE UA (BEAKER) (test gtmf=544) 70 mg/dL Negative KETONES UA (BEAKER) (test tunk=967) Negative Negative BILIRUBIN UA (BEAKER) (test nxgc=381) Negative Negative BLOOD UA (BEAKER) (test jmfc=806) Negative Negative NITRITE UA (BEAKER) (test jkcq=116) Negative Negative LEUKOCYTE ESTERASE UA (BEAKER) (test tmfb=144) Negative Negative UROBILINOGEN UA (BEAKER) (test ituz=105) 0.2 mg/dL 0.2-1.0 RBC UA (BEAKER) (test zmql=826) < /HPF WBC UA (BEAKER) (test kdep=867) 2 /HPF BACTERIA (BEAKER) (test qfzp=087) Occasional MUCUS (BEAKER) (test mqwe=2823) Rare SQUAMOUS EPITHELIAL (BEAKER) (test xehm=172) 2 /HPF HYALINE CASTS (BEAKER) (test vkqn=053) 7 /LPF SOURCE(BEAKER) (test jued=5955) BASIC METABOLIC [id number] 16:49:00 Test Item Value Reference Range Comments SODIUM (BEAKER) (test 134 meq/L 136-145 otbj=771) POTASSIUM (BEAKER) (test 4.8 meq/L 3.5-5.1 waby=009) CHLORIDE (BEAKER) (test 101 meq/L 98-107 apxd=139) CO2 (BEAKER) (test 26 meq/L 22-29 lmmv=462) BLOOD UREA NITROGEN 53 mg/dL 7-21 (BEAKER) (test bgde=285) CREATININE (BEAKER) (test 2.04 mg/dL 0.57-1.25 btzs=645) GLUCOSE RANDOM (BEAKER) 267 mg/dL 70-105 (test fmni=400) CALCIUM (BEAKER) (test 9.1 mg/dL 8.4-10.2 xhqt=774) EGFR (BEAKER) (test 25 mL/min/1.73 sq m ESTIMATED GFR IS NOT zzur=3931) ACCURATE CREATININE CLEARANCE IN PREDICTING GLOMERULAR FILTRATION RATE. ESTIMATED GFR IS NOT APPLICABLE FOR DIALYSIS PATIENTS. PT/[id number] 16:38:00 Test Item Value Reference Range Comments PROTIME (BEAKER) (test obea=944) 14.4 seconds 11.7-14.7 INR (BEAKER) (test bpet=476) 1.1 <=5.9 PARTIAL THROMBOPLASTIN TIME (BEAKER) (test 31.0 seconds 22.5-36.0 povj=590) RECOMMENDED COUMADIN/WARFARIN INR THERAPY RANGESSTANDARD DOSE: 2.0 - 3.0 Includes: PROPHYLAXIS forvenous thrombosis, systemic embolization; TREATMENT for venous thrombosis and/or pulmonary embolus.HIGH RISK: Target INR is 2.5-3.5 for patients with mechanical heart valves.CBC W/PLT COUNT & AUTO [id number] 16:26:00 Test Item Value Reference Range Comments WHITE BLOOD CELL COUNT (BEAKER) (test wflq=837) 6.3 K/ L 3.5-10.5 RED BLOOD CELL COUNT (BEAKER) (test cvdb=760) 4.22 M/ L 3.93-5.22 HEMOGLOBIN (BEAKER) (test wehm=583) 10.1 GM/DL 11.2-15.7 HEMATOCRIT (BEAKER) (test lxci=833) 33.4 % 34.1-44.9 MEAN CORPUSCULAR VOLUME (BEAKER) (test azmn=904) 79.1 fL 79.4-94.8 MEAN CORPUSCULAR HEMOGLOBIN (BEAKER) (test 23.9 pg 25.6-32.2 jsnl=340) MEAN CORPUSCULAR HEMOGLOBIN CONC (BEAKER) (test 30.2 GM/DL 32.2-35.5 jzgq=047) RED CELL DISTRIBUTION WIDTH (BEAKER) (test 16.1 % 11.7-14.4 bqsh=222) PLATELET COUNT (BEAKER) (test dtza=086) 252 K/CU MM 150-450 MEAN PLATELET VOLUME (BEAKER) (test kuua=842) 9.5 fL 9.4-12.3 NUCLEATED RED BLOOD CELLS (BEAKER) (test 0 /100 WBC 0-0 senb=092) NEUTROPHILS RELATIVE PERCENT (BEAKER) (test 49 % huhw=216) LYMPHOCYTES RELATIVE PERCENT (BEAKER) (test 38 % dsnr=576) MONOCYTES RELATIVE PERCENT (BEAKER) (test 6 % hkzr=736) EOSINOPHILS RELATIVE PERCENT (BEAKER) (test 5 % kvhk=199) BASOPHILS RELATIVE PERCENT (BEAKER) (test 1 % gzsz=075) NEUTROPHILS ABSOLUTE COUNT (BEAKER) (test 3.08 K/ L 1.56-6.13 tlks=206) LYMPHOCYTES ABSOLUTE COUNT (BEAKER) (test 2.42 K/ L 1.18-3.74 foom=460) MONOCYTES ABSOLUTE COUNT (BEAKER) (test 0.40 K/ L 0.24-0.36 cvhi=387) EOSINOPHILS ABSOLUTE COUNT (BEAKER) (test 0.33 K/ L 0.04-0.36 ktfc=237) BASOPHILS ABSOLUTE COUNT (BEAKER) (test 0.07 K/ L 0.01-0.08 lldw=583) IMMATURE GRANULOCYTES-RELATIVE PERCENT (BEAKER) 0 % 0-1 (test fbqf=2277) B-TYPE NATRIURETIC FACTOR (BNP)2017-09-02 13:47:00 Test Item Value Reference Range Comments B-TYPE NATRIURETIC PEPTIDE (BEAKER) (test 1942 pg/mL 0-100 ardo=675) BASIC METABOLIC [id number] 13:43:00 Test Item Value Reference Range Comments SODIUM (BEAKER) (test 134 meq/L 136-145 ejyi=572) POTASSIUM (BEAKER) (test 5.2 meq/L 3.5-5.1 ikax=398) CHLORIDE (BEAKER) (test 101 meq/L 98-107 vzfc=913) CO2 (BEAKER) (test 25 meq/L 22-29 edwy=846) BLOOD UREA NITROGEN 55 mg/dL 7-21 (BEAKER) (test mggk=690) CREATININE (BEAKER) (test 2.09 mg/dL 0.57-1.25 ncxi=812) GLUCOSE RANDOM (BEAKER) 317 mg/dL 70-105 (test bmpr=263) CALCIUM (BEAKER) (test 9.2 mg/dL 8.4-10.2 ajtu=208) EGFR (BEAKER) (test 24 mL/min/1.73 sq m ESTIMATED GFR IS NOT lgyi=0923) ACCURATE CREATININE CLEARANCE IN PREDICTING GLOMERULAR FILTRATION RATE. ESTIMATED GFR IS NOT APPLICABLE FOR DIALYSIS PATIENTS. POCT-GLUCOSE [id number] 12:44:00 Test Item Value Reference Range Comments POC-GLUCOSE METER (BEAKER) 283 mg/dL 70-110 TESTED AT [facility] [address] (test bcuf=9145) [facility] [address] CALCIUM, [id number] 07:03:00 Test Item Value Reference Range Comments CALCIUM IONIZED (BEAKER) (test lsns=422) 1.02 mmol/L 1.12-1.27 PH, BLOOD (BEAKER) (test kexi=5126) 7.43 [id number] 05:28:00 Test Item Value Reference Range Comments PHOSPHORUS (BEAKER) (test wqfj=792) 3.3 mg/dL 2.3-4.7 [id number] 05:28:00 Test Item Value Reference Range Comments MAGNESIUM (BEAKER) (test ybjl=328) 1.5 mg/dL 1.6-2.6 BASIC METABOLIC [id number] 05:28:00 Test Item Value Reference Range Comments SODIUM (BEAKER) (test 135 meq/L 136-145 zwqi=476) POTASSIUM (BEAKER) (test 3.9 meq/L 3.5-5.1 ojdd=821) CHLORIDE (BEAKER) (test 101 meq/L 98-107 mhys=313) CO2 (BEAKER) (test 27 meq/L 22-29 bvxh=101) BLOOD UREA NITROGEN 35 mg/dL 7-21 (BEAKER) (test kvkn=337) CREATININE (BEAKER) (test 1.37 mg/dL 0.57-1.25 ekys=880) GLUCOSE RANDOM (BEAKER) 145 mg/dL 70-105 (test adtc=328) CALCIUM (BEAKER) (test 8.3 mg/dL 8.4-10.2 pnhn=018) EGFR (BEAKER) (test 39 mL/min/1.73 sq m ESTIMATED GFR IS NOT zscf=3604) ACCURATE CREATININE CLEARANCE IN PREDICTING GLOMERULAR FILTRATION RATE. ESTIMATED GFR IS NOT APPLICABLE FOR DIALYSIS PATIENTS. CBC W/PLT COUNT & AUTO [id number] 05:06:00 Test Item Value Reference Range Comments WHITE BLOOD CELL COUNT (BEAKER) (test ymeu=595) 9.3 K/ L 3.5-10.5 RED BLOOD CELL COUNT (BEAKER) (test xpyn=724) 3.64 M/ L 3.93-5.22 HEMOGLOBIN (BEAKER) (test yxto=278) 8.7 GM/DL 11.2-15.7 HEMATOCRIT (BEAKER) (test uwuw=260) 28.5 % 34.1-44.9 MEAN CORPUSCULAR VOLUME (BEAKER) (test aofg=968) 78.3 fL 79.4-94.8 MEAN CORPUSCULAR HEMOGLOBIN (BEAKER) (test 23.9 pg 25.6-32.2 ubkn=737) MEAN CORPUSCULAR HEMOGLOBIN CONC (BEAKER) (test 30.5 GM/DL 32.2-35.5 bdcy=245) RED CELL DISTRIBUTION WIDTH (BEAKER) (test 14.6 % 11.7-14.4 jvvo=008) PLATELET COUNT (BEAKER) (test pxow=288) 336 K/CU MM 150-450 MEAN PLATELET VOLUME (BEAKER) (test vsim=704) 9.3 fL 9.4-12.3 NUCLEATED RED BLOOD CELLS (BEAKER) (test 0 /100 WBC 0-0 rxpv=081) NEUTROPHILS RELATIVE PERCENT (BEAKER) (test 50 % wtdj=287) LYMPHOCYTES RELATIVE PERCENT (BEAKER) (test 40 % ogof=944) MONOCYTES RELATIVE PERCENT (BEAKER) (test 6 % hsis=933) EOSINOPHILS RELATIVE PERCENT (BEAKER) (test 3 % emtp=179) BASOPHILS RELATIVE PERCENT (BEAKER) (test 1 % ssxs=224) NEUTROPHILS ABSOLUTE COUNT (BEAKER) (test 4.66 K/ L 1.56-6.13 josu=694) LYMPHOCYTES ABSOLUTE COUNT (BEAKER) (test 3.71 K/ L 1.18-3.74 ckjr=734) MONOCYTES ABSOLUTE COUNT (BEAKER) (test 0.53 K/ L 0.24-0.36 bxjm=015) EOSINOPHILS ABSOLUTE COUNT (BEAKER) (test 0.31 K/ L 0.04-0.36 zkxt=809) BASOPHILS ABSOLUTE COUNT (BEAKER) (test 0.07 K/ L 0.01-0.08 mgso=125) IMMATURE GRANULOCYTES-RELATIVE PERCENT (BEAKER) 1 % 0-1 (test nimk=1885) POCT-GLUCOSE [id number] 21:08:00 Test Item Value Reference Range Comments POC-GLUCOSE METER (BEAKER) 202 mg/dL 70-110 TESTED AT [address] (test qbmo=5080) [facility] [id number] POCT-GLUCOSE [id number] 16:50:00 Test Item Value Reference Range Comments POC-GLUCOSE METER (BEAKER) 287 mg/dL 70-110 TESTED AT [address] (test ntfs=3532) [facility] [address] POCT-GLUCOSE [id number] 12:21:00 Test Item Value Reference Range Comments POC-GLUCOSE METER (BEAKER) 213 mg/dL 70-110 TESTED AT [address] (test jsfm=2122) [facility] [address] POCT-GLUCOSE [id number] 08:28:00 Test Item Value Reference Range Comments POC-GLUCOSE METER (BEAKER) 178 mg/dL 70-110 TESTED AT [address] (test jbhi=6779) [facility] [address] CALCIUM, [id number] 07:06:00 Test Item Value Reference Range Comments CALCIUM IONIZED (BEAKER) (test iyxo=482) 0.99 mmol/L 1.12-1.27 PH, BLOOD (BEAKER) (test zzoe=8047) 7.42 [id number] 05:37:00 Test Item Value Reference Range Comments PHOSPHORUS (BEAKER) (test ojpe=414) 3.5 mg/dL 2.3-4.7 [id number] 05:37:00 Test Item Value Reference Range Comments MAGNESIUM (BEAKER) (test zjgz=614) 1.6 mg/dL 1.6-2.6 BASIC METABOLIC [id number] 05:37:00 Test Item Value Reference Range Comments SODIUM (BEAKER) (test 133 meq/L 136-145 vato=227) POTASSIUM (BEAKER) (test 3.8 meq/L 3.5-5.1 dqtv=566) CHLORIDE (BEAKER) (test 101 meq/L 98-107 aorm=179) CO2 (BEAKER) (test 25 meq/L 22-29 fuiu=603) BLOOD UREA NITROGEN 39 mg/dL 7-21 (BEAKER) (test nlpv=471) CREATININE (BEAKER) (test 1.42 mg/dL 0.57-1.25 nlaq=733) GLUCOSE RANDOM (BEAKER) 200 mg/dL 70-105 (test dvhf=219) CALCIUM (BEAKER) (test 8.0 mg/dL 8.4-10.2 ichp=571) EGFR (BEAKER) (test 37 mL/min/1.73 sq m ESTIMATED GFR IS NOT zdai=8277) ACCURATE CREATININE CLEARANCE IN PREDICTING GLOMERULAR FILTRATION RATE. ESTIMATED GFR IS NOT APPLICABLE FOR DIALYSIS PATIENTS. CBC W/PLT COUNT & AUTO [id number] 05:07:00 Test Item Value Reference Range Comments WHITE BLOOD CELL COUNT (BEAKER) (test ccgj=715) 9.2 K/ L 3.5-10.5 RED BLOOD CELL COUNT (BEAKER) (test juby=998) 3.69 M/ L 3.93-5.22 HEMOGLOBIN (BEAKER) (test adpy=681) 8.8 GM/DL 11.2-15.7 HEMATOCRIT (BEAKER) (test jrjl=399) 28.8 % 34.1-44.9 MEAN CORPUSCULAR VOLUME (BEAKER) (test boex=407) 78.0 fL 79.4-94.8 MEAN CORPUSCULAR HEMOGLOBIN (BEAKER) (test 23.8 pg 25.6-32.2 iwkh=013) MEAN CORPUSCULAR HEMOGLOBIN CONC (BEAKER) (test 30.6 GM/DL 32.2-35.5 lhiq=747) RED CELL DISTRIBUTION WIDTH (BEAKER) (test 14.6 % 11.7-14.4 ccyw=312) PLATELET COUNT (BEAKER) (test uqni=098) 308 K/CU MM 150-450 MEAN PLATELET VOLUME (BEAKER) (test skwf=770) 9.3 fL 9.4-12.3 NUCLEATED RED BLOOD CELLS (BEAKER) (test 0 /100 WBC 0-0 mkna=000) NEUTROPHILS RELATIVE PERCENT (BEAKER) (test 61 % xciz=623) LYMPHOCYTES RELATIVE PERCENT (BEAKER) (test 30 % dngk=857) MONOCYTES RELATIVE PERCENT (BEAKER) (test 5 % flfo=535) EOSINOPHILS RELATIVE PERCENT (BEAKER) (test 3 % rrhs=049) BASOPHILS RELATIVE PERCENT (BEAKER) (test 0 % fqde=092) NEUTROPHILS ABSOLUTE COUNT (BEAKER) (test 5.67 K/ L 1.56-6.13 xxyr=316) LYMPHOCYTES ABSOLUTE COUNT (BEAKER) (test 2.72 K/ L 1.18-3.74 cove=865) MONOCYTES ABSOLUTE COUNT (BEAKER) (test 0.48 K/ L 0.24-0.36 ciom=441) EOSINOPHILS ABSOLUTE COUNT (BEAKER) (test 0.26 K/ L 0.04-0.36 ftjn=247) BASOPHILS ABSOLUTE COUNT (BEAKER) (test 0.04 K/ L 0.01-0.08 olij=677) IMMATURE GRANULOCYTES-RELATIVE PERCENT (BEAKER) 1 % 0-1 (test ndye=2497) POCT-GLUCOSE [id number] 21:24:00 Test Item Value Reference Range Comments POC-GLUCOSE METER (BEAKER) 255 mg/dL 70-110 TESTED AT [address] (test typt=6967) [place] [id number] POCT-GLUCOSE [id number] 17:11:00 Test Item Value Reference Range Comments POC-GLUCOSE METER (BEAKER) 244 mg/dL 70-110 TESTED AT [address] (test tikl=2703) [facility] [address] POCT-GLUCOSE [id number] 11:54:00 Test Item Value Reference Range Comments POC-GLUCOSE METER (BEAKER) 209 mg/dL 70-110 TESTED AT [address] (test pydv=3315) [place] [id number] POCT-GLUCOSE [id number] 08:15:00 Test Item Value Reference Range Comments POC-GLUCOSE METER (BEAKER) 132 mg/dL 70-110 TESTED AT [address] (test licg=6808) [facility] [address] RAD, CHEST, 1 VIEW, NON [id number] 07:44:00Reason for exam:->edemaShould this be performed at the bedside?->YesFINAL REPORT Chest one view AP 08/07/2017 7:44 AM CLINICAL INDICATION: edema COMPARISON: 2017 IMPRESSION: Cardiomediastinal contours are stable. There is mild pulmonary edema,asymmetric to the right. There are trace bilateral pleural effusions, with bibasilar linear atelectasis. Sternotomy wires remain midline. Signed: Eder Cespedes Verified Date/Time: 08/07/2017 07:44:22 Reading Location: [facility] Radiology Reading Room [id number] 05:30:00 Test Item Value Reference Range Comments FERRITIN (BEAKER) (test ayzx=317) 87 ng/mL 5-275 CBC W/PLT COUNT & AUTO [id number] 05:21:00 Test Item Value Reference Range Comments WHITE BLOOD CELL COUNT (BEAKER) (test axmq=951) 12.4 K/ L 3.5-10.5 RED BLOOD CELL COUNT (BEAKER) (test lnxy=790) 3.78 M/ L 3.93-5.22 HEMOGLOBIN (BEAKER) (test lelr=561) 9.0 GM/DL 11.2-15.7 HEMATOCRIT (BEAKER) (test qiuh=988) 29.3 % 34.1-44.9 MEAN CORPUSCULAR VOLUME (BEAKER) (test vjrw=804) 77.5 fL 79.4-94.8 MEAN CORPUSCULAR HEMOGLOBIN (BEAKER) (test 23.8 pg 25.6-32.2 zxkd=924) MEAN CORPUSCULAR HEMOGLOBIN CONC (BEAKER) (test 30.7 GM/DL 32.2-35.5 sncz=744) RED CELL DISTRIBUTION WIDTH (BEAKER) (test 14.7 % 11.7-14.4 zrbt=608) PLATELET COUNT (BEAKER) (test njsp=036) 316 K/CU MM 150-450 MEAN PLATELET VOLUME (BEAKER) (test rpzf=933) 9.6 fL 9.4-12.3 NUCLEATED RED BLOOD CELLS (BEAKER) (test 0 /100 WBC 0-0 mdyz=159) NEUTROPHILS RELATIVE PERCENT (BEAKER) (test 72 % uxsh=233) LYMPHOCYTES RELATIVE PERCENT (BEAKER) (test 20 % rqpf=359) MONOCYTES RELATIVE PERCENT (BEAKER) (test 5 % ixgz=462) EOSINOPHILS RELATIVE PERCENT (BEAKER) (test 2 % qdql=582) BASOPHILS RELATIVE PERCENT (BEAKER) (test 1 % maqp=221) NEUTROPHILS ABSOLUTE COUNT (BEAKER) (test 8.93 K/ L 1.56-6.13 cafs=115) LYMPHOCYTES ABSOLUTE COUNT (BEAKER) (test 2.51 K/ L 1.18-3.74 ltzf=942) MONOCYTES ABSOLUTE COUNT (BEAKER) (test 0.58 K/ L 0.24-0.36 ldbx=957) EOSINOPHILS ABSOLUTE COUNT (BEAKER) (test 0.23 K/ L 0.04-0.36 tkpe=150) BASOPHILS ABSOLUTE COUNT (BEAKER) (test 0.07 K/ L 0.01-0.08 zrxp=638) IMMATURE GRANULOCYTES-RELATIVE PERCENT (BEAKER) 1 % 0-1 (test sgbz=8919) IRON, TIBC, % SAT. (WITHOUT FERRITIN)2017-08-07 05:16:00 Test Item Value Reference Range Comments IRON (BEAKER) (test smta=808) 21 ug/dL 40-160 TOTAL IRON BINDING CAPACITY (BEAKER) (test 184 ug/dL 250-450 ynyp=095) IRON % SATURATION (2) (BEAKER) (test jvpd=4229) 11 % 20-55 [id number] 05:11:00 Test Item Value Reference Range Comments PHOSPHORUS (BEAKER) (test cfpv=120) 3.6 mg/dL 2.3-4.7 [id number] 05:11:00 Test Item Value Reference Range Comments MAGNESIUM (BEAKER) (test vjab=813) 2.0 mg/dL 1.6-2.6 BASIC METABOLIC [id number] 05:11:00 Test Item Value Reference Range Comments SODIUM (BEAKER) (test 134 meq/L 136-145 wrfw=559) POTASSIUM (BEAKER) (test 3.9 meq/L 3.5-5.1 tocw=453) CHLORIDE (BEAKER) (test 102 meq/L 98-107 arsw=753) CO2 (BEAKER) (test 23 meq/L 22-29 brhk=222) BLOOD UREA NITROGEN 41 mg/dL 7-21 (BEAKER) (test sweb=602) CREATININE (BEAKER) (test 1.63 mg/dL 0.57-1.25 mrwx=312) GLUCOSE RANDOM (BEAKER) 124 mg/dL 70-105 (test grgc=883) CALCIUM (BEAKER) (test 8.3 mg/dL 8.4-10.2 xuga=745) EGFR (BEAKER) (test 32 mL/min/1.73 sq m ESTIMATED GFR IS NOT mjbg=5278) ACCURATE CREATININE CLEARANCE IN PREDICTING GLOMERULAR FILTRATION RATE. ESTIMATED GFR IS NOT APPLICABLE FOR DIALYSIS PATIENTS. B-TYPE NATRIURETIC FACTOR (BNP)2017-08-07 05:05:00 Test Item Value Reference Range Comments B-TYPE NATRIURETIC PEPTIDE (BEAKER) (test 1561 pg/mL 0-100 ezcj=488) CALCIUM, [id number] 04:58:00 Test Item Value Reference Range Comments CALCIUM IONIZED (BEAKER) (test fthd=533) 1.04 mmol/L 1.12-1.27 PH, BLOOD (BEAKER) (test ugqw=2827) 7.41 RETICULOCYTE [id number] 04:51:00 Test Item Value Reference Range Comments RETICULOCYTE COUNT PCT (BEAKER) (test ogkd=823) 1.2 % 0.5-1.7 POCT-GLUCOSE [id number] 20:49:00 Test Item Value Reference Range Comments POC-GLUCOSE METER (BEAKER) 202 mg/dL 70-110 TESTED AT [facility] [address] (test wzqu=4179) [place] [address] CREATININE, RANDOM [id number] 18:38:00 Test Item Value Reference Range Comments CREATININE URINE (BEAKER) (test kime=086) 56.3 mg/dL Reference Range: No NormalsPROTEIN, RANDOM [id number] 18:38:00 Test Item Value Reference Range Comments PROTEIN, URINE (BEAKER) (test pcvi=5102) 189 mg/dL 0-14 URINALYSIS W/ [id number] 18:34:00 Test Item Value Reference Range Comments COLOR (BEAKER) (test qinb=222) Light Yellow CLARITY (BEAKER) (test ajjf=738) Hazy SPECIFIC GRAVITY UA (BEAKER) (test escg=176) 1.008 1.001-1.035 PH UA (BEAKER) (test kqaf=636) 5.5 5.0-8.0 PROTEIN UA (BEAKER) (test hlvj=402) 100 mg/dL Negative GLUCOSE UA (BEAKER) (test skzm=688) 30 mg/dL Negative KETONES UA (BEAKER) (test lbie=116) Negative Negative BILIRUBIN UA (BEAKER) (test xeyu=426) Negative Negative BLOOD UA (BEAKER) (test fqxl=194) Negative Negative NITRITE UA (BEAKER) (test nngz=025) Negative Negative LEUKOCYTE ESTERASE UA (BEAKER) (test ihji=302) Negative Negative UROBILINOGEN UA (BEAKER) (test yljz=259) 0.2 mg/dL 0.2-1.0 RBC UA (BEAKER) (test nsue=712) < /HPF WBC UA (BEAKER) (test btwv=590) 2 /HPF BACTERIA (BEAKER) (test lqtx=285) Rare MUCUS (BEAKER) (test qnjv=4767) Rare SQUAMOUS EPITHELIAL (BEAKER) (test ybqd=869) 8 /HPF SOURCE(BEAKER) (test btus=1304) Urine, Voided POCT-GLUCOSE [id number] 17:38:00 Test Item Value Reference Range Comments POC-GLUCOSE METER (BEAKER) 143 mg/dL 70-110 TESTED AT [address] (test fzlc=7793) [place] [address] POCT-GLUCOSE [id number] 12:30:00 Test Item Value Reference Range Comments POC-GLUCOSE METER (BEAKER) 218 mg/dL 70-110 TESTED AT [address] (test yztq=7539) [place] [address] POCT-GLUCOSE [id number] 08:00:00 Test Item Value Reference Range Comments POC-GLUCOSE METER (BEAKER) 134 mg/dL 70-110 TESTED AT [address] (test dysd=7023) [place] [address] CBC W/PLT COUNT & AUTO [id number] 04:23:00 Test Item Value Reference Range Comments WHITE BLOOD CELL COUNT (BEAKER) (test khbt=778) 13.9 K/ L 3.5-10.5 RED BLOOD CELL COUNT (BEAKER) (test yuhp=498) 3.23 M/ L 3.93-5.22 HEMOGLOBIN (BEAKER) (test dwqt=101) 7.6 GM/DL 11.2-15.7 HEMATOCRIT (BEAKER) (test ksoq=332) 25.3 % 34.1-44.9 MEAN CORPUSCULAR VOLUME (BEAKER) (test uhqv=269) 78.3 fL 79.4-94.8 MEAN CORPUSCULAR HEMOGLOBIN (BEAKER) (test 23.5 pg 25.6-32.2 tvok=465) MEAN CORPUSCULAR HEMOGLOBIN CONC (BEAKER) (test 30.0 GM/DL 32.2-35.5 mlzv=801) RED CELL DISTRIBUTION WIDTH (BEAKER) (test 14.8 % 11.7-14.4 utld=252) PLATELET COUNT (BEAKER) (test nxpm=866) 284 K/CU MM 150-450 MEAN PLATELET VOLUME (BEAKER) (test igkw=523) 9.8 fL 9.4-12.3 NUCLEATED RED BLOOD CELLS (BEAKER) (test 0 /100 WBC 0-0 auqt=441) NEUTROPHILS RELATIVE PERCENT (BEAKER) (test 77 % rvbj=819) LYMPHOCYTES RELATIVE PERCENT (BEAKER) (test 16 % iazo=732) MONOCYTES RELATIVE PERCENT (BEAKER) (test 4 % yhqy=338) EOSINOPHILS RELATIVE PERCENT (BEAKER) (test 2 % rgsq=107) BASOPHILS RELATIVE PERCENT (BEAKER) (test 1 % nnqe=064) NEUTROPHILS ABSOLUTE COUNT (BEAKER) (test 10.70 K/ L 1.56-6.13 yvqm=694) LYMPHOCYTES ABSOLUTE COUNT (BEAKER) (test 2.17 K/ L 1.18-3.74 ryci=065) MONOCYTES ABSOLUTE COUNT (BEAKER) (test 0.57 K/ L 0.24-0.36 aqjv=113) EOSINOPHILS ABSOLUTE COUNT (BEAKER) (test 0.30 K/ L 0.04-0.36 iujj=518) BASOPHILS ABSOLUTE COUNT (BEAKER) (test 0.08 K/ L 0.01-0.08 fbrz=628) IMMATURE GRANULOCYTES-RELATIVE PERCENT (BEAKER) 1 % 0-1 (test egpw=0023) BASIC METABOLIC [id number] 04:13:00 Test Item Value Reference Range Comments SODIUM (BEAKER) (test 134 meq/L 136-145 dlxa=627) POTASSIUM (BEAKER) (test 4.6 meq/L 3.5-5.1 qjij=742) CHLORIDE (BEAKER) (test 103 meq/L 98-107 ygvq=137) CO2 (BEAKER) (test 23 meq/L 22-29 agcm=430) BLOOD UREA NITROGEN 43 mg/dL 7-21 (BEAKER) (test jklv=163) CREATININE (BEAKER) (test 1.79 mg/dL 0.57-1.25 gepq=099) GLUCOSE RANDOM (BEAKER) 123 mg/dL 70-105 (test gwzs=597) CALCIUM (BEAKER) (test 8.1 mg/dL 8.4-10.2 jsej=867) EGFR (BEAKER) (test 29 mL/min/1.73 sq m ESTIMATED GFR IS NOT slnt=6980) ACCURATE CREATININE CLEARANCE IN PREDICTING GLOMERULAR FILTRATION RATE. ESTIMATED GFR IS NOT APPLICABLE FOR DIALYSIS PATIENTS. [id number] 04:10:00 Test Item Value Reference Range Comments PHOSPHORUS (BEAKER) (test uceg=770) 4.9 mg/dL 2.3-4.7 [id number] 04:10:00 Test Item Value Reference Range Comments MAGNESIUM (BEAKER) (test ymmh=901) 1.4 mg/dL 1.6-2.6 [id number] 04:08:00 Test Item Value Reference Range Comments FIBRINOGEN LEVEL (BEAKER) (test ngln=633) 548 mg/dl 225-434 [id number] 04:08:00 Test Item Value Reference Range Comments PARTIAL THROMBOPLASTIN TIME (BEAKER) (test 37.7 seconds 22.5-36.0 mifo=898) PROTHROMBIN TIME/[id number] 04:07:00 Test Item Value Reference Range Comments PROTIME (BEAKER) (test ynco=062) 16.2 seconds 11.7-14.7 INR (BEAKER) (test ewnb=697) 1.3 <=5.9 RECOMMENDED COUMADIN/WARFARIN INR THERAPY RANGESSTANDARD DOSE: 2.0 - 3.0 Includes: PROPHYLAXIS forvenous thrombosis, systemic embolization; TREATMENT for venous thrombosis and/or pulmonary embolus.HIGH RISK: Target INR is 2.5-3.5 for patients with mechanical heart valves.[id number] 16:59:00 Test Item Value Reference Range Comments ACTIVATED CLOTTING TIME 219 sec TESTED AT [facility] [address] (BEAKER) (test uctd=638) [facility] [address] BASIC METABOLIC [id number] 14:25:00 Test Item Value Reference Range Comments SODIUM (BEAKER) (test 134 meq/L 136-145 gmei=346) POTASSIUM (BEAKER) (test 4.4 meq/L 3.5-5.1 jkhh=884) CHLORIDE (BEAKER) (test 103 meq/L 98-107 xgmr=777) CO2 (BEAKER) (test 22 meq/L 22-29 fmdl=200) BLOOD UREA NITROGEN 46 mg/dL 7-21 (BEAKER) (test uzgl=808) CREATININE (BEAKER) (test 2.16 mg/dL 0.57-1.25 phim=257) GLUCOSE RANDOM (BEAKER) 160 mg/dL 70-105 (test fexp=657) CALCIUM (BEAKER) (test 7.8 mg/dL 8.4-10.2 boxa=287) EGFR (BEAKER) (test 23 mL/min/1.73 sq m ESTIMATED GFR IS NOT dvpr=3988) ACCURATE CREATININE CLEARANCE IN PREDICTING GLOMERULAR FILTRATION RATE. ESTIMATED GFR IS NOT APPLICABLE FOR DIALYSIS PATIENTS. POCT-GLUCOSE [id number] 13:21:00 Test Item Value Reference Range Comments POC-GLUCOSE METER (BEAKER) 170 mg/dL 70-110 TESTED AT [facility] [address] (test ogte=5098) [facility] [address] POTASSIUM-STAT [id number] 13:20:00 Test Item Value Reference Range Comments POTASSIUM (BEAKER) (test yhve=697) 4.2 meq/L 3.6-5.5 SODIUM NA-STAT [id number] 13:20:00 Test Item Value Reference Range Comments SODIUM (BEAKER) (test fqcj=628) 133 meq/L 135-148 HGB/HCT (H&H) - STAT [id number] 12:34:00 Test Item Value Reference Range Comments HEMOGLOBIN (BEAKER) (test pdmc=678) 10.8 g/dL 12.0-15.0 HEMATOCRIT (BEAKER) (test viyn=397) 32.0 % 36.0-45.0 POTASSIUM-STAT [id number] 08:15:00 Test Item Value Reference Range Comments POTASSIUM (BEAKER) (test mauh=959) 4.1 meq/L 3.6-5.5 BLOOD GAS, [id number] 08:15:00 Test Item Value Reference Range Comments PH ARTERIAL (BEAKER) (test lywe=071) 7.36 7.35-7.45 PCO2 ARTERIAL (BEAKER) (test coty=168) 47 mmHg 35-45 PO2 ARTERIAL (BEAKER) (test ixaa=294) 213 mmHg 80-90 O2 SATURATION ARTERIAL (BEAKER) (test dysm=686) 99.4 % 96.0-97.0 HCO3 ARTERIAL (BEAKER) (test dglw=995) 26 mmol/L 21-29 BASE EXCESS ARTERIAL (BEAKER) (test kldn=528) 0.3 mmol/L -2.0-3.0 PATIENT TEMPERATURE (BEAKER) (test jttd=7935) 37.2 C FIO2 (BEAKER) (test fiku=1393) 70.0 % SODIUM NA-STAT [id number] 08:15:00 Test Item Value Reference Range Comments SODIUM (BEAKER) (test jjwz=825) 130 meq/L 135-148 GLUCOSE-STAT [id number] 08:15:00 Test Item Value Reference Range Comments GLUCOSE RANDOM (BEAKER) (test sass=934) 172 mg/dL 70-110 HGB/HCT (H&H) - STAT [id number] 08:15:00 Test Item Value Reference Range Comments HEMOGLOBIN (BEAKER) (test unwz=477) 8.8 g/dL 12.0-15.0 HEMATOCRIT (BEAKER) (test slll=615) 26.0 % 36.0-45.0 BASIC METABOLIC [id number] 07:37:00 Test Item Value Reference Range Comments SODIUM (BEAKER) (test 135 meq/L 136-145 aftj=712) POTASSIUM (BEAKER) (test 4.4 meq/L 3.5-5.1 boky=960) CHLORIDE (BEAKER) (test 100 meq/L 98-107 fdby=793) CO2 (BEAKER) (test 23 meq/L 22-29 dlve=217) BLOOD UREA NITROGEN 46 mg/dL 7-21 (BEAKER) (test hhef=711) CREATININE (BEAKER) (test 1.98 mg/dL 0.57-1.25 pssu=317) GLUCOSE RANDOM (BEAKER) 188 mg/dL 70-105 (test fowz=228) CALCIUM (BEAKER) (test 8.9 mg/dL 8.4-10.2 brie=931) EGFR (BEAKER) (test 26 mL/min/1.73 sq m ESTIMATED GFR IS NOT ldro=2134) ACCURATE CREATININE CLEARANCE IN PREDICTING GLOMERULAR FILTRATION RATE. ESTIMATED GFR IS NOT APPLICABLE FOR DIALYSIS PATIENTS. CBC W/PLT COUNT & AUTO [id number] 07:20:00 Test Item Value Reference Range Comments WHITE BLOOD CELL COUNT (BEAKER) (test kwpy=363) 20.2 K/ L 3.5-10.5 RED BLOOD CELL COUNT (BEAKER) (test twni=276) 3.86 M/ L 3.93-5.22 HEMOGLOBIN (BEAKER) (test twpg=647) 9.1 GM/DL 11.2-15.7 HEMATOCRIT (BEAKER) (test gmmv=058) 29.4 % 34.1-44.9 MEAN CORPUSCULAR VOLUME (BEAKER) (test lqdm=043) 76.2 fL 79.4-94.8 MEAN CORPUSCULAR HEMOGLOBIN (BEAKER) (test 23.6 pg 25.6-32.2 wbpk=384) MEAN CORPUSCULAR HEMOGLOBIN CONC (BEAKER) (test 31.0 GM/DL 32.2-35.5 nchs=593) RED CELL DISTRIBUTION WIDTH (BEAKER) (test 14.9 % 11.7-14.4 lvxu=411) PLATELET COUNT (BEAKER) (test myki=609) 343 K/CU MM 150-450 MEAN PLATELET VOLUME (BEAKER) (test rtzp=720) 9.5 fL 9.4-12.3 NUCLEATED RED BLOOD CELLS (BEAKER) (test 0 /100 WBC 0-0 otiq=403) NEUTROPHILS RELATIVE PERCENT (BEAKER) (test 78 % sewd=356) LYMPHOCYTES RELATIVE PERCENT (BEAKER) (test 15 % nweb=352) MONOCYTES RELATIVE PERCENT (BEAKER) (test 5 % nskk=154) EOSINOPHILS RELATIVE PERCENT (BEAKER) (test 1 % alnu=177) BASOPHILS RELATIVE PERCENT (BEAKER) (test 1 % ymgq=765) NEUTROPHILS ABSOLUTE COUNT (BEAKER) (test 15.70 K/ L 1.56-6.13 cqzh=796) LYMPHOCYTES ABSOLUTE COUNT (BEAKER) (test 2.99 K/ L 1.18-3.74 fuew=136) MONOCYTES ABSOLUTE COUNT (BEAKER) (test 0.93 K/ L 0.24-0.36 pibw=713) EOSINOPHILS ABSOLUTE COUNT (BEAKER) (test 0.20 K/ L 0.04-0.36 klio=957) BASOPHILS ABSOLUTE COUNT (BEAKER) (test 0.12 K/ L 0.01-0.08 pakl=292) IMMATURE GRANULOCYTES-RELATIVE PERCENT (BEAKER) 1 % 0-1 (test svja=4448) POCT-GLUCOSE [id number] 07:03:00 Test Item Value Reference Range Comments POC-GLUCOSE METER (BEAKER) 186 mg/dL 70-110 TESTED AT [address] (test wrsi=5386) [facility] [address] B-TYPE NATRIURETIC FACTOR (BNP)2017-06-10 12:44:00 Test Item Value Reference Range Comments B-TYPE NATRIURETIC PEPTIDE (BEAKER) (test 1264 pg/mL 0-100 gvzl=739) [id number] 12:36:00 Test Item Value Reference Range Comments MAGNESIUM (BEAKER) (test ihyy=412) 1.6 mg/dL 1.6-2.6 BASIC METABOLIC [id number] 12:36:00 Test Item Value Reference Range Comments SODIUM (BEAKER) (test 137 meq/L 136-145 wrsk=345) POTASSIUM (BEAKER) (test 5.4 meq/L 3.5-5.1 eqrr=933) CHLORIDE (BEAKER) (test 108 meq/L 98-107 yhhn=127) CO2 (BEAKER) (test 21 meq/L 22-29 tcoa=403) BLOOD UREA NITROGEN 39 mg/dL 7-21 (BEAKER) (test rivo=163) CREATININE (BEAKER) (test 1.49 mg/dL 0.57-1.25 bmoi=169) GLUCOSE RANDOM (BEAKER) 219 mg/dL 70-105 (test yubo=230) CALCIUM (BEAKER) (test 8.5 mg/dL 8.4-10.2 hoys=357) EGFR (BEAKER) (test 35 mL/min/1.73 sq m ESTIMATED GFR IS NOT bxyk=0525) ACCURATE CREATININE CLEARANCE IN PREDICTING GLOMERULAR FILTRATION RATE. ESTIMATED GFR IS NOT APPLICABLE FOR DIALYSIS PATIENTS. POCT-GLUCOSE [id number] 12:04:00 Test Item Value Reference Range Comments POC-GLUCOSE METER (BEAKER) 274 mg/dL 70-110 TESTED AT [address] (test xavr=9263) [facility] [address] POCT-GLUCOSE [id number] 07:21:00 Test Item Value Reference Range Comments POC-GLUCOSE METER (BEAKER) 137 mg/dL 70-110 TESTED AT [facility] [address] (test waul=5646) [facility] [address] BASIC METABOLIC [id number] 05:10:00 Test Item Value Reference Range Comments SODIUM (BEAKER) (test 137 meq/L 136-145 zqyd=179) POTASSIUM (BEAKER) (test 4.1 meq/L 3.5-5.1 bwjg=615) CHLORIDE (BEAKER) (test 106 meq/L 98-107 jgyw=867) CO2 (BEAKER) (test 24 meq/L 22-29 owea=256) BLOOD UREA NITROGEN 42 mg/dL 7-21 (BEAKER) (test mbef=930) CREATININE (BEAKER) (test 1.64 mg/dL 0.57-1.25 yscu=182) GLUCOSE RANDOM (BEAKER) 162 mg/dL 70-105 (test hirt=141) CALCIUM (BEAKER) (test 8.1 mg/dL 8.4-10.2 mmbp=397) EGFR (BEAKER) (test 32 mL/min/1.73 sq m ESTIMATED GFR IS NOT ucti=8450) ACCURATE CREATININE CLEARANCE IN PREDICTING GLOMERULAR FILTRATION RATE. ESTIMATED GFR IS NOT APPLICABLE FOR DIALYSIS PATIENTS. CBC (HEMOGRAM ONLY)2017-06-01 04:30:00 Test Item Value Reference Range Comments WHITE BLOOD CELL COUNT (BEAKER) (test jrjy=490) 6.4 K/ L 3.5-10.5 RED BLOOD CELL COUNT (BEAKER) (test fami=069) 3.38 M/ L 3.93-5.22 HEMOGLOBIN (BEAKER) (test bvtq=596) 8.7 GM/DL 11.2-15.7 HEMATOCRIT (BEAKER) (test nzfg=629) 28.2 % 34.1-44.9 MEAN CORPUSCULAR VOLUME (BEAKER) (test ifvj=401) 83.4 fL 79.4-94.8 MEAN CORPUSCULAR HEMOGLOBIN (BEAKER) (test 25.7 pg 25.6-32.2 xhws=779) MEAN CORPUSCULAR HEMOGLOBIN CONC (BEAKER) (test 30.9 GM/DL 32.2-35.5 ymmk=712) RED CELL DISTRIBUTION WIDTH (BEAKER) (test 15.2 % 11.7-14.4 ycco=026) PLATELET COUNT (BEAKER) (test xmgj=586) 320 K/CU MM 150-450 MEAN PLATELET VOLUME (BEAKER) (test ibmp=155) 9.5 fL 9.4-12.3 NUCLEATED RED BLOOD CELLS (BEAKER) (test 0 /100 WBC 0-0 ihzl=015) POCT-GLUCOSE [id number] 21:23:00 Test Item Value Reference Range Comments POC-GLUCOSE METER (BEAKER) 240 mg/dL 70-110 TESTED AT [address] (test vcli=0564) [place] [id number] POCT-GLUCOSE [id number] 16:42:00 Test Item Value Reference Range Comments POC-GLUCOSE METER (BEAKER) 234 mg/dL 70-110 TESTED AT [address] (test atyl=0502) [place] [id number] POCT-GLUCOSE [id number] 13:22:00 Test Item Value Reference Range Comments POC-GLUCOSE METER (BEAKER) 166 mg/dL 70-110 TESTED AT [address] (test tmaa=1078) [facility] [address] RAD, CHEST, 1 VIEW, NON [id number] 09:43:00Reason for exam:->s/p ACBShould this be performed [...] Ring Verified Date/Time: 05/31/2017 09: 43:30 ReadingLocation: [facility] B1 [id number] Ortho Consult Reading Room POCT-GLUCOSE [id number] 06:57:00 Test Item Value Reference Range Comments POC-GLUCOSE METER (BEAKER) 136 mg/dL 70-110 TESTED AT [facility] [address] (test dqoq=9309) [place] [address] CALCIUM, [id number] 06:41:00 Test Item Value Reference Range Comments CALCIUM IONIZED (BEAKER) (test mfbc=772) 1.10 mmol/L 1.12-1.27 PH, BLOOD (BEAKER) (test cdwy=0888) 7.42 [id number] 06:17:00 Test Item Value Reference Range Comments PHOSPHORUS (BEAKER) (test vzth=278) 3.3 mg/dL 2.3-4.7 [id number] 06:17:00 Test Item Value Reference Range Comments MAGNESIUM (BEAKER) (test hkve=577) 1.8 mg/dL 1.6-2.6 BASIC METABOLIC [id number] 06:17:00 Test Item Value Reference Range Comments SODIUM (BEAKER) (test 131 meq/L 136-145 uexj=233) POTASSIUM (BEAKER) (test 4.5 meq/L 3.5-5.1 kdyu=438) CHLORIDE (BEAKER) (test 103 meq/L 98-107 mloa=233) CO2 (BEAKER) (test 21 meq/L 22-29 tjpd=712) BLOOD UREA NITROGEN 43 mg/dL 7-21 (BEAKER) (test kpik=974) CREATININE (BEAKER) (test 1.74 mg/dL 0.57-1.25 mdan=591) GLUCOSE RANDOM (BEAKER) 126 mg/dL 70-105 (test uufb=918) CALCIUM (BEAKER) (test 8.1 mg/dL 8.4-10.2 ccjy=557) EGFR (BEAKER) (test 30 mL/min/1.73 sq m ESTIMATED GFR IS NOT suqi=0466) ACCURATE CREATININE CLEARANCE IN PREDICTING GLOMERULAR FILTRATION RATE. ESTIMATED GFR IS NOT APPLICABLE FOR DIALYSIS PATIENTS. CBC W/PLT COUNT & AUTO [id number] 05:07:00 Test Item Value Reference Range Comments WHITE BLOOD CELL COUNT (BEAKER) (test lqdm=018) 5.9 K/ L 3.5-10.5 RED BLOOD CELL COUNT (BEAKER) (test qgcj=158) 3.16 M/ L 3.93-5.22 HEMOGLOBIN (BEAKER) (test jeom=719) 8.2 GM/DL 11.2-15.7 HEMATOCRIT (BEAKER) (test bedn=152) 26.6 % 34.1-44.9 MEAN CORPUSCULAR VOLUME (BEAKER) (test huyv=919) 84.2 fL 79.4-94.8 MEAN CORPUSCULAR HEMOGLOBIN (BEAKER) (test 25.9 pg 25.6-32.2 nmir=118) MEAN CORPUSCULAR HEMOGLOBIN CONC (BEAKER) (test 30.8 GM/DL 32.2-35.5 oqtk=409) RED CELL DISTRIBUTION WIDTH (BEAKER) (test 15.1 % 11.7-14.4 lfpx=966) PLATELET COUNT (BEAKER) (test knwe=759) 320 K/CU MM 150-450 MEAN PLATELET VOLUME (BEAKER) (test znww=666) 9.6 fL 9.4-12.3 NUCLEATED RED BLOOD CELLS (BEAKER) (test 0 /100 WBC 0-0 drrv=295) NEUTROPHILS RELATIVE PERCENT (BEAKER) (test 65 % jdnn=423) LYMPHOCYTES RELATIVE PERCENT (BEAKER) (test 24 % avnn=412) MONOCYTES RELATIVE PERCENT (BEAKER) (test 8 % spib=909) EOSINOPHILS RELATIVE PERCENT (BEAKER) (test 2 % zqpb=250) BASOPHILS RELATIVE PERCENT (BEAKER) (test 1 % gwwf=330) NEUTROPHILS ABSOLUTE COUNT (BEAKER) (test 3.84 K/ L 1.56-6.13 mshn=149) LYMPHOCYTES ABSOLUTE COUNT (BEAKER) (test 1.41 K/ L 1.18-3.74 aknm=878) MONOCYTES ABSOLUTE COUNT (BEAKER) (test 0.47 K/ L 0.24-0.36 gzgf=996) EOSINOPHILS ABSOLUTE COUNT (BEAKER) (test 0.11 K/ L 0.04-0.36 frem=669) BASOPHILS ABSOLUTE COUNT (BEAKER) (test 0.05 K/ L 0.01-0.08 gsst=752) IMMATURE GRANULOCYTES-RELATIVE PERCENT (BEAKER) 1 % 0-1 (test nblj=7966) POCT-GLUCOSE [id number] 20:56:00 Test Item Value Reference Range Comments POC-GLUCOSE METER (BEAKER) 196 mg/dL 70-110 TESTED AT [facility] [address] [facility] (test nyra=1056) [place] [id number] POCT-GLUCOSE [id number] 16:42:00 Test Item Value Reference Range Comments POC-GLUCOSE METER (BEAKER) 196 mg/dL 70-110 TESTED AT [facility] [address] [facility] (test arzh=3092) [place] [address] POCT-GLUCOSE [id number] 11:45:00 Test Item Value Reference Range Comments POC-GLUCOSE METER (BEAKER) 215 mg/dL 70-110 TESTED AT [place] [id number] [facility] (test ybcq=5764) [place] [address] RAD, CHEST, 1 VIEW, NON [id number] 11:15:00Reason for exam:->s/p ACBShould this be performed at the bedside?->YesFINAL REPORT Chest one view compared to May 28, 2017 Discussion: Airspace opacities are seen in both lower lung regions, probably atelectasis. Correlate clinically for infection. I could not exclude small effusions. No pneumothorax. Upper lungs clear. Signed: Jeannette Nava Verified Date/Time: 2017 11:15:07 Reading Location: [facility] Radiology Reading Room CALCIUM, [id number] 09:21:00 Test Item Value Reference Range Comments CALCIUM IONIZED (BEAKER) (test emgn=723) 1.11 mmol/L 1.12-1.27 PH, BLOOD (BEAKER) (test fjmi=8867) 7.36 BASIC METABOLIC [id number] 07:37:00 Test Item Value Reference Range Comments SODIUM (BEAKER) (test 135 meq/L 136-145 gelv=172) POTASSIUM (BEAKER) (test 4.9 meq/L 3.5-5.1 sped=379) CHLORIDE (BEAKER) (test 105 meq/L 98-107 mblc=855) CO2 (BEAKER) (test 25 meq/L 22-29 bepe=964) BLOOD UREA NITROGEN 44 mg/dL 7-21 (BEAKER) (test jdah=341) CREATININE (BEAKER) (test 1.76 mg/dL 0.57-1.25 euof=064) GLUCOSE RANDOM (BEAKER) 136 mg/dL 70-105 (test tckn=058) CALCIUM (BEAKER) (test 8.2 mg/dL 8.4-10.2 klkq=780) EGFR (BEAKER) (test 29 mL/min/1.73 sq m ESTIMATED GFR IS NOT hreh=8188) ACCURATE CREATININE CLEARANCE IN PREDICTING GLOMERULAR FILTRATION RATE. ESTIMATED GFR IS NOT APPLICABLE FOR DIALYSIS PATIENTS. [id number] 07:28:00 Test Item Value Reference Range Comments PHOSPHORUS (BEAKER) (test tkws=210) 3.8 mg/dL 2.3-4.7 [id number] 07:28:00 Test Item Value Reference Range Comments MAGNESIUM (BEAKER) (test puhy=094) 1.9 mg/dL 1.6-2.6 CBC W/PLT COUNT & AUTO [id number] 07:26:00 Test Item Value Reference Range Comments WHITE BLOOD CELL COUNT (BEAKER) (test ptra=228) 6.3 K/ L 3.5-10.5 RED BLOOD CELL COUNT (BEAKER) (test bnlm=881) 3.32 M/ L 3.93-5.22 HEMOGLOBIN (BEAKER) (test ulxs=137) 8.5 GM/DL 11.2-15.7 HEMATOCRIT (BEAKER) (test marf=909) 27.8 % 34.1-44.9 MEAN CORPUSCULAR VOLUME (BEAKER) (test sizr=900) 83.7 fL 79.4-94.8 MEAN CORPUSCULAR HEMOGLOBIN (BEAKER) (test 25.6 pg 25.6-32.2 bnyi=309) MEAN CORPUSCULAR HEMOGLOBIN CONC (BEAKER) (test 30.6 GM/DL 32.2-35.5 elaj=328) RED CELL DISTRIBUTION WIDTH (BEAKER) (test 15.0 % 11.7-14.4 cceb=565) PLATELET COUNT (BEAKER) (test jvaw=003) 336 K/CU MM 150-450 MEAN PLATELET VOLUME (BEAKER) (test sflq=069) 9.8 fL 9.4-12.3 NUCLEATED RED BLOOD CELLS (BEAKER) (test 0 /100 WBC 0-0 ethl=819) NEUTROPHILS RELATIVE PERCENT (BEAKER) (test 65 % jjyz=777) LYMPHOCYTES RELATIVE PERCENT (BEAKER) (test 24 % defs=789) MONOCYTES RELATIVE PERCENT (BEAKER) (test 7 % yujk=892) EOSINOPHILS RELATIVE PERCENT (BEAKER) (test 3 % hyam=067) BASOPHILS RELATIVE PERCENT (BEAKER) (test 0 % hbws=192) NEUTROPHILS ABSOLUTE COUNT (BEAKER) (test 4.13 K/ L 1.56-6.13 aakr=290) LYMPHOCYTES ABSOLUTE COUNT (BEAKER) (test 1.50 K/ L 1.18-3.74 qykk=162) MONOCYTES ABSOLUTE COUNT (BEAKER) (test 0.44 K/ L 0.24-0.36 dccv=329) EOSINOPHILS ABSOLUTE COUNT (BEAKER) (test 0.20 K/ L 0.04-0.36 tadu=062) BASOPHILS ABSOLUTE COUNT (BEAKER) (test 0.02 K/ L 0.01-0.08 eprd=880) IMMATURE GRANULOCYTES-RELATIVE PERCENT (BEAKER) 1 % 0-1 (test acap=5982) POCT-GLUCOSE [id number] 07:21:00 Test Item Value Reference Range Comments POC-GLUCOSE METER (BEAKER) 146 mg/dL 70-110 TESTED AT [address] (test yuwd=3802) [place] [address] POCT-GLUCOSE [id number] 22:02:00 Test Item Value Reference Range Comments POC-GLUCOSE METER (BEAKER) 201 mg/dL 70-110 TESTED AT [address] (test tvid=3007) [place] [id number] POCT-GLUCOSE [id number] 18:27:00 Test Item Value Reference Range Comments POC-GLUCOSE METER (BEAKER) 240 mg/dL 70-110 TESTED AT [address] (test wklm=1855) [place] [id number] POCT-GLUCOSE [id number] 12:13:00 Test Item Value Reference Range Comments POC-GLUCOSE METER (BEAKER) 193 mg/dL 70-110 TESTED AT [address] (test bycz=6503) [place] [id number] POCT-GLUCOSE [id number] 09:02:00 Test Item Value Reference Range Comments POC-GLUCOSE METER (BEAKER) 132 mg/dL 70-110 TESTED AT [address] (test stkq=7106) [place] [id number] CALCIUM, [id number] 05:42:00 Test Item Value Reference Range Comments CALCIUM IONIZED (BEAKER) (test hvbi=479) 1.12 mmol/L 1.12-1.27 PH, BLOOD (BEAKER) (test baxq=6694) 7.34 COMPREHENSIVE METABOLIC [id number] 05:33:00 Test Item Value Reference Range Comments TOTAL PROTEIN (BEAKER) 5.9 gm/dL 6.0-8.3 (test rzay=797) ALBUMIN (BEAKER) (test 2.7 g/dL 3.5-5.0 kala=1286) ALKALINE PHOSPHATASE 130 U/L 40-150 (BEAKER) (test derw=837) BILIRUBIN TOTAL (BEAKER) 0.3 mg/dL 0.2-1.2 (test tsxz=040) SODIUM (BEAKER) (test 135 meq/L 136-145 sieg=498) POTASSIUM (BEAKER) (test 4.7 meq/L 3.5-5.1 gfuy=055) CHLORIDE (BEAKER) (test 105 meq/L 98-107 aoal=180) CO2 (BEAKER) (test 24 meq/L 22-29 tunl=014) BLOOD UREA NITROGEN 42 mg/dL 7-21 (BEAKER) (test pwqf=145) CREATININE (BEAKER) (test 1.78 mg/dL 0.57-1.25 zhjl=666) GLUCOSE RANDOM (BEAKER) 129 mg/dL 70-105 (test ymdd=287) CALCIUM (BEAKER) (test 8.5 mg/dL 8.4-10.2 czmh=590) AST (SGOT) (BEAKER) (test 23 U/L 5-34 bumb=179) ALT (SGPT) (BEAKER) (test 15 U/L 6-55 ypwp=562) EGFR (BEAKER) (test 29 mL/min/1.73 sq m ESTIMATED GFR IS NOT yyrj=0024) ACCURATE CREATININE CLEARANCE IN PREDICTING GLOMERULAR FILTRATION RATE. ESTIMATED GFR IS NOT APPLICABLE FOR DIALYSIS PATIENTS. [id number] 05:32:00 Test Item Value Reference Range Comments PHOSPHORUS (BEAKER) (test zlaw=550) 3.6 mg/dL 2.3-4.7 [id number] 05:32:00 Test Item Value Reference Range Comments MAGNESIUM (BEAKER) (test nsht=859) 2.2 mg/dL 1.6-2.6 CBC W/PLT COUNT & AUTO [id number] 05:01:00 Test Item Value Reference Range Comments WHITE BLOOD CELL COUNT (BEAKER) (test gogr=923) 6.4 K/ L 3.5-10.5 RED BLOOD CELL COUNT (BEAKER) (test bkfv=432) 3.43 M/ L 3.93-5.22 HEMOGLOBIN (BEAKER) (test fksy=558) 8.9 GM/DL 11.2-15.7 HEMATOCRIT (BEAKER) (test ydkf=975) 28.9 % 34.1-44.9 MEAN CORPUSCULAR VOLUME (BEAKER) (test wlvq=586) 84.3 fL 79.4-94.8 MEAN CORPUSCULAR HEMOGLOBIN (BEAKER) (test 25.9 pg 25.6-32.2 epzf=749) MEAN CORPUSCULAR HEMOGLOBIN CONC (BEAKER) (test 30.8 GM/DL 32.2-35.5 moqy=440) RED CELL DISTRIBUTION WIDTH (BEAKER) (test 15.0 % 11.7-14.4 bnhn=700) PLATELET COUNT (BEAKER) (test smkx=664) 324 K/CU MM 150-450 MEAN PLATELET VOLUME (BEAKER) (test lxun=038) 9.3 fL 9.4-12.3 NUCLEATED RED BLOOD CELLS (BEAKER) (test 0 /100 WBC 0-0 rpvj=901) NEUTROPHILS RELATIVE PERCENT (BEAKER) (test 62 % jrcg=705) LYMPHOCYTES RELATIVE PERCENT (BEAKER) (test 25 % kauy=590) MONOCYTES RELATIVE PERCENT (BEAKER) (test 8 % zpiy=960) EOSINOPHILS RELATIVE PERCENT (BEAKER) (test 4 % eylc=377) BASOPHILS RELATIVE PERCENT (BEAKER) (test 1 % rcka=575) NEUTROPHILS ABSOLUTE COUNT (BEAKER) (test 3.93 K/ L 1.56-6.13 plng=464) LYMPHOCYTES ABSOLUTE COUNT (BEAKER) (test 1.60 K/ L 1.18-3.74 xfsg=888) MONOCYTES ABSOLUTE COUNT (BEAKER) (test 0.51 K/ L 0.24-0.36 fylf=950) EOSINOPHILS ABSOLUTE COUNT (BEAKER) (test 0.25 K/ L 0.04-0.36 xvzg=126) BASOPHILS ABSOLUTE COUNT (BEAKER) (test 0.03 K/ L 0.01-0.08 kscz=685) IMMATURE GRANULOCYTES-RELATIVE PERCENT (BEAKER) 1 % 0-1 (test gjtp=7900) POCT-GLUCOSE [id number] 21:04:00 Test Item Value Reference Range Comments POC-GLUCOSE METER (BEAKER) 165 mg/dL 70-110 TESTED AT [address] (test xsmb=7989) [facility] [address] POCT-GLUCOSE [id number] 17:30:00 Test Item Value Reference Range Comments POC-GLUCOSE METER (BEAKER) 236 mg/dL 70-110 TESTED AT [address] (test eaxt=0755) [facility] [address] RAD, CHEST, 1 VIEW, NON [id number] 13:53:00Reason for exam:->assess for ill-defined opacityShould this [...] MDReport Verified Date/Time: 05/28/2017 13:53:03 Reading Location: [address] Radiology Reading Room Electronically signed by: LUIS ALBERTO CALLAWAY M.D. on 01:53 PMPOCT-GLUCOSE [id number] 11:53:00 Test Item Value Reference Range Comments POC-GLUCOSE METER (BEAKER) 215 mg/dL 70-110 TESTED AT [address] (test pbyn=7327) [facility] [address] POCT-GLUCOSE [id number] 08:32:00 Test Item Value Reference Range Comments POC-GLUCOSE METER (BEAKER) 168 mg/dL 70-110 TESTED AT [address] (test cqfe=2525) [facility] [address] CALCIUM, [id number] 05:44:00 Test Item Value Reference Range Comments CALCIUM IONIZED (BEAKER) (test efgo=692) 1.09 mmol/L 1.12-1.27 PH, BLOOD (BEAKER) (test jmka=4060) 7.38 [id number] 05:44:00 Test Item Value Reference Range Comments PHOSPHORUS (BEAKER) (test fjjm=652) 3.5 mg/dL 2.3-4.7 [id number] 05:44:00 Test Item Value Reference Range Comments MAGNESIUM (BEAKER) (test yrzk=437) 1.9 mg/dL 1.6-2.6 BASIC METABOLIC [id number] 05:44:00 Test Item Value Reference Range Comments SODIUM (BEAKER) (test 137 meq/L 136-145 mscb=009) POTASSIUM (BEAKER) (test 4.5 meq/L 3.5-5.1 enqz=038) CHLORIDE (BEAKER) (test 108 meq/L 98-107 dhop=101) CO2 (BEAKER) (test 23 meq/L 22-29 jhhz=856) BLOOD UREA NITROGEN 41 mg/dL 7-21 (BEAKER) (test nyts=323) CREATININE (BEAKER) (test 1.41 mg/dL 0.57-1.25 xcjv=484) GLUCOSE RANDOM (BEAKER) 113 mg/dL 70-105 (test clqy=413) CALCIUM (BEAKER) (test 8.1 mg/dL 8.4-10.2 ibhm=101) EGFR (BEAKER) (test 38 mL/min/1.73 sq m ESTIMATED GFR IS NOT jnze=2959) ACCURATE CREATININE CLEARANCE IN PREDICTING GLOMERULAR FILTRATION RATE. ESTIMATED GFR IS NOT APPLICABLE FOR DIALYSIS PATIENTS. CBC W/PLT COUNT & AUTO [id number] 05:05:00 Test Item Value Reference Range Comments WHITE BLOOD CELL COUNT (BEAKER) (test qngh=042) 6.3 K/ L 3.5-10.5 RED BLOOD CELL COUNT (BEAKER) (test lheu=313) 3.40 M/ L 3.93-5.22 HEMOGLOBIN (BEAKER) (test lehc=049) 8.8 GM/DL 11.2-15.7 HEMATOCRIT (BEAKER) (test xuvg=996) 29.0 % 34.1-44.9 MEAN CORPUSCULAR VOLUME (BEAKER) (test mgwz=906) 85.3 fL 79.4-94.8 MEAN CORPUSCULAR HEMOGLOBIN (BEAKER) (test 25.9 pg 25.6-32.2 qgvm=516) MEAN CORPUSCULAR HEMOGLOBIN CONC (BEAKER) (test 30.3 GM/DL 32.2-35.5 yrzo=322) RED CELL DISTRIBUTION WIDTH (BEAKER) (test 14.9 % 11.7-14.4 uavg=707) PLATELET COUNT (BEAKER) (test sgbn=484) 282 K/CU MM 150-450 MEAN PLATELET VOLUME (BEAKER) (test jseb=648) 9.5 fL 9.4-12.3 NUCLEATED RED BLOOD CELLS (BEAKER) (test 0 /100 WBC 0-0 mufb=729) NEUTROPHILS RELATIVE PERCENT (BEAKER) (test 59 % lram=673) LYMPHOCYTES RELATIVE PERCENT (BEAKER) (test 28 % cttt=529) MONOCYTES RELATIVE PERCENT (BEAKER) (test 7 % lzmf=211) EOSINOPHILS RELATIVE PERCENT (BEAKER) (test 4 % buur=268) BASOPHILS RELATIVE PERCENT (BEAKER) (test 1 % oprv=155) NEUTROPHILS ABSOLUTE COUNT (BEAKER) (test 3.75 K/ L 1.56-6.13 bxdd=869) LYMPHOCYTES ABSOLUTE COUNT (BEAKER) (test 1.80 K/ L 1.18-3.74 xtfy=474) MONOCYTES ABSOLUTE COUNT (BEAKER) (test 0.45 K/ L 0.24-0.36 exbu=853) EOSINOPHILS ABSOLUTE COUNT (BEAKER) (test 0.25 K/ L 0.04-0.36 ptct=311) BASOPHILS ABSOLUTE COUNT (BEAKER) (test 0.05 K/ L 0.01-0.08 ilhp=556) IMMATURE GRANULOCYTES-RELATIVE PERCENT (BEAKER) 1 % 0-1 (test kcjj=3947) POCT-GLUCOSE [id number] 21:03:00 Test Item Value Reference Range Comments POC-GLUCOSE METER (BEAKER) 173 mg/dL 70-110 TESTED AT [address] (test gcwn=1288) [place] [address] [id number] 18:15:00 Test Item Value Reference Range Comments ACTIVATED CLOTTING TIME 147 sec TESTED AT [address] (BEAKER) (test xhzc=170) [place] [address] [id number] 18:15:00 Test Item Value Reference Range Comments ACTIVATED CLOTTING TIME 246 sec TESTED AT [place] [id number] (BEAKER) (test cvdi=081) [place] [id number] POCT-GLUCOSE [id number] 12:39:00 Test Item Value Reference Range Comments POC-GLUCOSE METER (BEAKER) 219 mg/dL 70-110 TESTED AT [address] (test qvmf=5642) [place] [address] RAD, CHEST, 1 VIEW, NON [id number] 10:11:00Reason for exam:->pl effusionShould this be performed at the bedside?->YesFINAL REPORT Chest one view compared to May 26 Discussion: There is cardiac prominence. Upper lungs are clear. Ill-defined basilar densities are similar probably atelectasis. No gross effusion or pneumothorax with bilateral chest tubes in place. Signed: Jeannette Nava Verified Date/Time: 2017 10:11:44 Reading Location: [facility] Radiology Reading Room POCT- GLUCOSE [id number] 07:05:00 Test Item Value Reference Range Comments POC-GLUCOSE METER (BEAKER) 167 mg/dL 70-110 TESTED AT [address] (test cfzk=2962) [place] [id number] CALCIUM, [id number] 06:20:00 Test Item Value Reference Range Comments CALCIUM IONIZED (BEAKER) (test ttio=439) 0.98 mmol/L 1.12-1.27 PH, BLOOD (BEAKER) (test ycvn=2333) 7.50 [id number] 04:56:00 Test Item Value Reference Range Comments PHOSPHORUS (BEAKER) (test fxdt=215) 2.6 mg/dL 2.3-4.7 [id number] 04:56:00 Test Item Value Reference Range Comments MAGNESIUM (BEAKER) (test esiu=367) 2.0 mg/dL 1.6-2.6 BASIC METABOLIC [id number] 04:56:00 Test Item Value Reference Range Comments SODIUM (BEAKER) (test 135 meq/L 136-145 nkcj=617) POTASSIUM (BEAKER) (test 4.5 meq/L 3.5-5.1 sbqw=259) CHLORIDE (BEAKER) (test 105 meq/L 98-107 orbn=354) CO2 (BEAKER) (test 22 meq/L 22-29 hevi=530) BLOOD UREA NITROGEN 47 mg/dL 7-21 (BEAKER) (test cqiu=834) CREATININE (BEAKER) (test 1.44 mg/dL 0.57-1.25 wbqz=808) GLUCOSE RANDOM (BEAKER) 177 mg/dL 70-105 (test htfg=961) CALCIUM (BEAKER) (test 8.0 mg/dL 8.4-10.2 ehnu=173) EGFR (BEAKER) (test 37 mL/min/1.73 sq m ESTIMATED GFR IS NOT fljr=2219) ACCURATE CREATININE CLEARANCE IN PREDICTING GLOMERULAR FILTRATION RATE. ESTIMATED GFR IS NOT APPLICABLE FOR DIALYSIS PATIENTS. CBC W/PLT COUNT & AUTO [id number] 04:36:00 Test Item Value Reference Range Comments WHITE BLOOD CELL COUNT (BEAKER) (test libk=103) 6.1 K/ L 3.5-10.5 RED BLOOD CELL COUNT (BEAKER) (test mmsp=113) 3.35 M/ L 3.93-5.22 HEMOGLOBIN (BEAKER) (test lkts=101) 8.6 GM/DL 11.2-15.7 HEMATOCRIT (BEAKER) (test jzgg=649) 28.0 % 34.1-44.9 MEAN CORPUSCULAR VOLUME (BEAKER) (test tetk=629) 83.6 fL 79.4-94.8 MEAN CORPUSCULAR HEMOGLOBIN (BEAKER) (test 25.7 pg 25.6-32.2 ozmq=839) MEAN CORPUSCULAR HEMOGLOBIN CONC (BEAKER) (test 30.7 GM/DL 32.2-35.5 gmed=413) RED CELL DISTRIBUTION WIDTH (BEAKER) (test 14.7 % 11.7-14.4 thka=959) PLATELET COUNT (BEAKER) (test ricf=528) 280 K/CU MM 150-450 MEAN PLATELET VOLUME (BEAKER) (test fsbc=725) 9.9 fL 9.4-12.3 NUCLEATED RED BLOOD CELLS (BEAKER) (test 0 /100 WBC 0-0 qwau=878) NEUTROPHILS RELATIVE PERCENT (BEAKER) (test 65 % zlqo=036) LYMPHOCYTES RELATIVE PERCENT (BEAKER) (test 23 % hdwy=227) MONOCYTES RELATIVE PERCENT (BEAKER) (test 7 % hfsx=990) EOSINOPHILS RELATIVE PERCENT (BEAKER) (test 4 % zsmg=690) BASOPHILS RELATIVE PERCENT (BEAKER) (test 1 % wran=942) NEUTROPHILS ABSOLUTE COUNT (BEAKER) (test 3.97 K/ L 1.56-6.13 rotw=035) LYMPHOCYTES ABSOLUTE COUNT (BEAKER) (test 1.41 K/ L 1.18-3.74 kmua=721) MONOCYTES ABSOLUTE COUNT (BEAKER) (test 0.44 K/ L 0.24-0.36 psip=296) EOSINOPHILS ABSOLUTE COUNT (BEAKER) (test 0.22 K/ L 0.04-0.36 zsmw=326) BASOPHILS ABSOLUTE COUNT (BEAKER) (test 0.05 K/ L 0.01-0.08 szwv=121) IMMATURE GRANULOCYTES-RELATIVE PERCENT (BEAKER) 1 % 0-1 (test iqsp=5374) POCT-GLUCOSE [id number] 21:29:00 Test Item Value Reference Range Comments POC-GLUCOSE METER (BEAKER) 147 mg/dL 70-110 TESTED AT [address] (test dbpz=9985) [place] [address] POCT-GLUCOSE [id number] 17:51:00 Test Item Value Reference Range Comments POC-GLUCOSE METER (BEAKER) 224 mg/dL 70-110 TESTED AT [address] (test ftlv=9658) [place] [address] POCT-GLUCOSE [id number] 13:53:00 Test Item Value Reference Range Comments POC-GLUCOSE METER (BEAKER) 182 mg/dL 70-110 TESTED AT [address] (test jdjk=1385) [place] [address] RAD, CHEST, 1 VIEW, NON [id number] 08:44:00Reason for exam:->pl effusionShould this be performed [...] Verified Date/Time : 05/26/2017 08:44:25 Reading Location: [address] Radiology Reading Room POCT- GLUCOSE [id number] 07:43:00 Test Item Value Reference Range Comments POC-GLUCOSE METER (BEAKER) 113 mg/dL 70-110 TESTED AT [facility] [address] [facility] (test hlak=1209) [facility] [address] CALCIUM, [id number] 06:31:00 Test Item Value Reference Range Comments CALCIUM IONIZED (BEAKER) (test fvlf=834) 1.07 mmol/L 1.12-1.27 PH, BLOOD (BEAKER) (test rgtt=2436) 7.38 [id number] 04:51:00 Test Item Value Reference Range Comments PHOSPHORUS (BEAKER) (test ncdp=735) 3.2 mg/dL 2.3-4.7 [id number] 04:51:00 Test Item Value Reference Range Comments MAGNESIUM (BEAKER) (test htvt=321) 2.1 mg/dL 1.6-2.6 BASIC METABOLIC [id number] 04:51:00 Test Item Value Reference Range Comments SODIUM (BEAKER) (test 139 meq/L 136-145 attc=840) POTASSIUM (BEAKER) (test 4.1 meq/L 3.5-5.1 yffr=212) CHLORIDE (BEAKER) (test 106 meq/L 98-107 ghdo=750) CO2 (BEAKER) (test 24 meq/L 22-29 fito=948) BLOOD UREA NITROGEN 52 mg/dL 7-21 (BEAKER) (test gtsf=648) CREATININE (BEAKER) (test 1.52 mg/dL 0.57-1.25 pkgu=243) GLUCOSE RANDOM (BEAKER) 108 mg/dL 70-105 (test lirl=746) CALCIUM (BEAKER) (test 8.4 mg/dL 8.4-10.2 asqu=630) EGFR (BEAKER) (test 35 mL/min/1.73 sq m ESTIMATED GFR IS NOT nbdc=6939) ACCURATE CREATININE CLEARANCE IN PREDICTING GLOMERULAR FILTRATION RATE. ESTIMATED GFR IS NOT APPLICABLE FOR DIALYSIS PATIENTS. CBC W/PLT COUNT & AUTO [id number] 04:27:00 Test Item Value Reference Range Comments WHITE BLOOD CELL COUNT (BEAKER) (test vjmj=716) 7.2 K/ L 3.5-10.5 RED BLOOD CELL COUNT (BEAKER) (test pcok=343) 3.53 M/ L 3.93-5.22 HEMOGLOBIN (BEAKER) (test qchs=956) 9.1 GM/DL 11.2-15.7 HEMATOCRIT (BEAKER) (test vgom=108) 29.5 % 34.1-44.9 MEAN CORPUSCULAR VOLUME (BEAKER) (test yucl=549) 83.6 fL 79.4-94.8 MEAN CORPUSCULAR HEMOGLOBIN (BEAKER) (test 25.8 pg 25.6-32.2 duip=902) MEAN CORPUSCULAR HEMOGLOBIN CONC (BEAKER) (test 30.8 GM/DL 32.2-35.5 tbse=131) RED CELL DISTRIBUTION WIDTH (BEAKER) (test 14.6 % 11.7-14.4 mhbd=858) PLATELET COUNT (BEAKER) (test bgiz=660) 296 K/CU MM 150-450 MEAN PLATELET VOLUME (BEAKER) (test eram=986) 9.5 fL 9.4-12.3 NUCLEATED RED BLOOD CELLS (BEAKER) (test 0 /100 WBC 0-0 jjfg=837) NEUTROPHILS RELATIVE PERCENT (BEAKER) (test 67 % ougq=428) LYMPHOCYTES RELATIVE PERCENT (BEAKER) (test 21 % jzam=015) MONOCYTES RELATIVE PERCENT (BEAKER) (test 7 % byja=685) EOSINOPHILS RELATIVE PERCENT (BEAKER) (test 4 % mhrk=748) BASOPHILS RELATIVE PERCENT (BEAKER) (test 1 % kizj=851) NEUTROPHILS ABSOLUTE COUNT (BEAKER) (test 4.79 K/ L 1.56-6.13 vnxd=303) LYMPHOCYTES ABSOLUTE COUNT (BEAKER) (test 1.49 K/ L 1.18-3.74 hxcd=619) MONOCYTES ABSOLUTE COUNT (BEAKER) (test 0.50 K/ L 0.24-0.36 cist=552) EOSINOPHILS ABSOLUTE COUNT (BEAKER) (test 0.30 K/ L 0.04-0.36 duit=217) BASOPHILS ABSOLUTE COUNT (BEAKER) (test 0.05 K/ L 0.01-0.08 cjam=934) IMMATURE GRANULOCYTES-RELATIVE PERCENT (BEAKER) 0 % 0-1 (test knyh=2195) POCT-GLUCOSE [id number] 23:48:00 Test Item Value Reference Range Comments POC-GLUCOSE METER (BEAKER) 123 mg/dL 70-110 TESTED AT [address] (test rehm=9103) [place] [address] POCT-GLUCOSE [id number] 16:46:00 Test Item Value Reference Range Comments POC-GLUCOSE METER (BEAKER) 178 mg/dL 70-110 TESTED AT [address] (test mstd=7405) [place] [address] BASIC METABOLIC [id number] 05:53:00 Test Item Value Reference Range Comments SODIUM (BEAKER) (test 139 meq/L 136-145 uydv=707) POTASSIUM (BEAKER) (test 3.9 meq/L 3.5-5.1 ktvc=685) CHLORIDE (BEAKER) (test 106 meq/L 98-107 vrub=421) CO2 (BEAKER) (test 23 meq/L 22-29 grwo=289) BLOOD UREA NITROGEN 62 mg/dL 7-21 (BEAKER) (test qfyo=602) CREATININE (BEAKER) (test 2.05 mg/dL 0.57-1.25 slys=754) GLUCOSE RANDOM (BEAKER) 87 mg/dL 70-105 (test pzjr=923) CALCIUM (BEAKER) (test 7.9 mg/dL 8.4-10.2 rmfp=773) EGFR (BEAKER) (test 25 mL/min/1.73 sq m ESTIMATED GFR IS NOT wwpm=2481) ACCURATE CREATININE CLEARANCE IN PREDICTING GLOMERULAR FILTRATION RATE. ESTIMATED GFR IS NOT APPLICABLE FOR DIALYSIS PATIENTS. [id number] 05:52:00 Test Item Value Reference Range Comments PHOSPHORUS (BEAKER) (test uyfb=389) 4.2 mg/dL 2.3-4.7 [id number] 05:52:00 Test Item Value Reference Range Comments MAGNESIUM (BEAKER) (test qgln=357) 2.3 mg/dL 1.6-2.6 CALCIUM, [id number] 05:27:00 Test Item Value Reference Range Comments CALCIUM IONIZED (BEAKER) (test ocia=136) 1.12 mmol/L 1.12-1.27 PH, BLOOD (BEAKER) (test znvi=2661) 7.38 CBC W/PLT COUNT & AUTO [id number] 05:07:00 Test Item Value Reference Range Comments WHITE BLOOD CELL COUNT (BEAKER) (test vyqk=333) 8.4 K/ L 3.5-10.5 RED BLOOD CELL COUNT (BEAKER) (test bvjr=493) 3.16 M/ L 3.93-5.22 HEMOGLOBIN (BEAKER) (test wegc=638) 8.2 GM/DL 11.2-15.7 HEMATOCRIT (BEAKER) (test flsv=705) 26.5 % 34.1-44.9 MEAN CORPUSCULAR VOLUME (BEAKER) (test sepg=508) 83.9 fL 79.4-94.8 MEAN CORPUSCULAR HEMOGLOBIN (BEAKER) (test 25.9 pg 25.6-32.2 mxdc=256) MEAN CORPUSCULAR HEMOGLOBIN CONC (BEAKER) (test 30.9 GM/DL 32.2-35.5 shga=825) RED CELL DISTRIBUTION WIDTH (BEAKER) (test 14.6 % 11.7-14.4 fojo=533) PLATELET COUNT (BEAKER) (test smfk=608) 256 K/CU MM 150-450 MEAN PLATELET VOLUME (BEAKER) (test guba=530) 10.0 fL 9.4-12.3 NUCLEATED RED BLOOD CELLS (BEAKER) (test 0 /100 WBC 0-0 xhkn=293) NEUTROPHILS RELATIVE PERCENT (BEAKER) (test 63 % wwsh=324) LYMPHOCYTES RELATIVE PERCENT (BEAKER) (test 25 % weni=153) MONOCYTES RELATIVE PERCENT (BEAKER) (test 8 % jbip=264) EOSINOPHILS RELATIVE PERCENT (BEAKER) (test 3 % erta=718) BASOPHILS RELATIVE PERCENT (BEAKER) (test 1 % wqrt=050) NEUTROPHILS ABSOLUTE COUNT (BEAKER) (test 5.27 K/ L 1.56-6.13 hydq=588) LYMPHOCYTES ABSOLUTE COUNT (BEAKER) (test 2.09 K/ L 1.18-3.74 joog=929) MONOCYTES ABSOLUTE COUNT (BEAKER) (test 0.63 K/ L 0.24-0.36 xbpe=115) EOSINOPHILS ABSOLUTE COUNT (BEAKER) (test 0.27 K/ L 0.04-0.36 mcbp=343) BASOPHILS ABSOLUTE COUNT (BEAKER) (test 0.05 K/ L 0.01-0.08 uezz=410) IMMATURE GRANULOCYTES-RELATIVE PERCENT (BEAKER) 1 % 0-1 (test lkcn=7083) RAD, CHEST, 1 VIEW, NON [id number] 04:45:00Reason for exam:->pl effusionShould this be performed [...] MDReport Verified Date/Time: 05/25/2017 04:45:08 Reading Location: [place] [address]Y CT Body Reading Room POCT-GLUCOSE [id number] 01:52:00 Test Item Value Reference Range Comments POC-GLUCOSE METER (BEAKER) 126 mg/dL 70-110 TESTED AT [address] (test sivb=9049) [facility] [address] POCT-GLUCOSE [id number] 13:07:00 Test Item Value Reference Range Comments POC-GLUCOSE METER (BEAKER) 118 mg/dL 70-110 TESTED AT [address] (test dugs=5195) [facility] [address] BRONCHIAL CULTURE + GRAM [id number] 11:35:00 Test Item Value Reference Range Comments CULTURE (BEAKER) (test kvqe=7609) Amikacin (test code=1) Susceptible 0-16 , Resistant [...] >40 code=47) CULTURE (BEAKER) (test 4+ Bordetella qirq=3101) bronchiseptica GRAM STAIN RESULT 1+ WBCs (BEAKER) (test fqms=8923) GRAM STAIN RESULT <1+ gram positive (BEAKER) (test cocci in pairs lqfl=460629) GRAM STAIN RESULT 1+ gram variable (BEAKER) (test rods qnkn=646407) 1+ Normal respiratory todd presentRAD, CHEST, 1 VIEW, NON [id number] 06:50: 00Reason for exam:->pl effusionShould this be [...] MDReport Verified Date/Time: 05/24/2017 06:50:08 Reading Location: [address] Body Reading Room BASIC METABOLIC [id number] 04: 19:00 Test Item Value Reference Range Comments SODIUM (BEAKER) (test 136 meq/L 136-145 lcwr=280) POTASSIUM (BEAKER) (test 4.3 meq/L 3.5-5.1 cyhv=408) CHLORIDE (BEAKER) (test 104 meq/L 98-107 tzrk=021) CO2 (BEAKER) (test 20 meq/L 22-29 cozf=786) BLOOD UREA NITROGEN 61 mg/dL 7-21 (BEAKER) (test njak=027) CREATININE (BEAKER) (test 2.69 mg/dL 0.57-1.25 bvzb=741) GLUCOSE RANDOM (BEAKER) 107 mg/dL 70-105 (test oofm=734) CALCIUM (BEAKER) (test 7.8 mg/dL 8.4-10.2 nqiw=733) EGFR (BEAKER) (test 18 mL/min/1.73 sq m ESTIMATED GFR IS NOT geze=8212) ACCURATE CREATININE CLEARANCE IN PREDICTING GLOMERULAR FILTRATION RATE. ESTIMATED GFR IS NOT APPLICABLE FOR DIALYSIS PATIENTS. CALCIUM, [id number] 04:16:00 Test Item Value Reference Range Comments CALCIUM IONIZED (BEAKER) (test irco=522) 1.06 mmol/L 1.12-1.27 PH, BLOOD (BEAKER) (test ktpi=9084) 7.40 [id number] 04:11:00 Test Item Value Reference Range Comments PHOSPHORUS (BEAKER) (test vnzh=627) 6.0 mg/dL 2.3-4.7 [id number] 04:11:00 Test Item Value Reference Range Comments MAGNESIUM (BEAKER) (test mwbe=330) 2.4 mg/dL 1.6-2.6 CBC W/PLT COUNT & AUTO [id number] 03:50:00 Test Item Value Reference Range Comments WHITE BLOOD CELL COUNT (BEAKER) (test bdjw=432) 9.5 K/ L 3.5-10.5 RED BLOOD CELL COUNT (BEAKER) (test xpur=120) 3.06 M/ L 3.93-5.22 HEMOGLOBIN (BEAKER) (test lwce=910) 7.9 GM/DL 11.2-15.7 HEMATOCRIT (BEAKER) (test mtot=355) 25.5 % 34.1-44.9 MEAN CORPUSCULAR VOLUME (BEAKER) (test vgoz=182) 83.3 fL 79.4-94.8 MEAN CORPUSCULAR HEMOGLOBIN (BEAKER) (test 25.8 pg 25.6-32.2 pedo=175) MEAN CORPUSCULAR HEMOGLOBIN CONC (BEAKER) (test 31.0 GM/DL 32.2-35.5 itak=473) RED CELL DISTRIBUTION WIDTH (BEAKER) (test 15.1 % 11.7-14.4 ovzc=694) PLATELET COUNT (BEAKER) (test phqz=354) 224 K/CU MM 150-450 MEAN PLATELET VOLUME (BEAKER) (test xvmc=575) 10.5 fL 9.4-12.3 NUCLEATED RED BLOOD CELLS (BEAKER) (test 0 /100 WBC 0-0 phme=492) NEUTROPHILS RELATIVE PERCENT (BEAKER) (test 70 % jntw=961) LYMPHOCYTES RELATIVE PERCENT (BEAKER) (test 21 % kqxl=637) MONOCYTES RELATIVE PERCENT (BEAKER) (test 7 % haus=215) EOSINOPHILS RELATIVE PERCENT (BEAKER) (test 2 % qoja=605) BASOPHILS RELATIVE PERCENT (BEAKER) (test 0 % uykt=222) NEUTROPHILS ABSOLUTE COUNT (BEAKER) (test 6.60 K/ L 1.56-6.13 umyg=492) LYMPHOCYTES ABSOLUTE COUNT (BEAKER) (test 2.02 K/ L 1.18-3.74 cudr=416) MONOCYTES ABSOLUTE COUNT (BEAKER) (test 0.63 K/ L 0.24-0.36 ggyp=010) EOSINOPHILS ABSOLUTE COUNT (BEAKER) (test 0.15 K/ L 0.04-0.36 rnif=554) BASOPHILS ABSOLUTE COUNT (BEAKER) (test 0.04 K/ L 0.01-0.08 xnnl=811) IMMATURE GRANULOCYTES-RELATIVE PERCENT (BEAKER) 0 % 0-1 (test bnbn=6876) POCT-GLUCOSE [id number] 20:45:00 Test Item Value Reference Range Comments POC-GLUCOSE METER (BEAKER) 143 mg/dL 70-110 TESTED AT [facility] [address] (test vmop=8134) [facility] [address] POCT-GLUCOSE [id number] 20:45:00 Test Item Value Reference Range Comments POC-GLUCOSE METER (BEAKER) 145 mg/dL 70-110 TESTED AT [facility] [address] (test urse=1422) [facility] [address] [id number] 13:37:00 Test Item Value Reference Range Comments PREALBUMIN (BEAKER) (test 10 mg/dL 14-45 Specimen slightly hemolyzed hjri=271) OXYGEN SATURATION, [id number] 12:31:00 Test Item Value Reference Range Comments O2 SATURATION (MEASURED) (BEAKER) (test ltmo=1366) 94.5 % [id number] 11:02:00 Test Item Value Reference Range Comments PREALBUMIN (BEAKER) (test unfy=707) 10 mg/dL 14-45 RAD, CHEST, 1 VIEW, NON [id number] 05:14:00while patient is intubated or has chest [...] MDReport Verified Date/Time: 05/23/2017 05:14:04 Reading Location: [address] Body Reading Room BASIC METABOLIC [id number] 03:48:00 Test Item Value Reference Range Comments SODIUM (BEAKER) (test 138 meq/L 136-145 iusv=704) POTASSIUM (BEAKER) (test 4.6 meq/L 3.5-5.1 Specimen slightly cmns=966) hemolyzed CHLORIDE (BEAKER) (test 106 meq/L 98-107 boxl=946) CO2 (BEAKER) (test 20 meq/L 22-29 xmkz=467) BLOOD UREA NITROGEN 54 mg/dL 7-21 (BEAKER) (test wnfg=184) CREATININE (BEAKER) (test 2.66 mg/dL 0.57-1.25 Specimen slightly ofuj=162) hemolyzed GLUCOSE RANDOM (BEAKER) 113 mg/dL 70-105 (test kmra=336) CALCIUM (BEAKER) (test 7.9 mg/dL 8.4-10.2 iktv=346) EGFR (BEAKER) (test 18 mL/min/1.73 sq m ESTIMATED GFR IS NOT fwik=6414) ACCURATE CREATININE CLEARANCE IN PREDICTING GLOMERULAR FILTRATION RATE. ESTIMATED GFR IS NOT APPLICABLE FOR DIALYSIS PATIENTS. [id number] 03:46:00 Test Item Value Reference Range Comments MAGNESIUM (BEAKER) (test 2.4 mg/dL 1.6-2.6 Specimen slightly hemolyzed uonl=119) [id number] 03:46:00 Test Item Value Reference Range Comments PHOSPHORUS (BEAKER) (test 6.5 mg/dL 2.3-4.7 Specimen slightly hemolyzed yyse=884) CBC W/PLT COUNT & AUTO [id number] 03:26:00 Test Item Value Reference Range Comments WHITE BLOOD CELL COUNT (BEAKER) (test hyim=631) 10.8 K/ L 3.5-10.5 RED BLOOD CELL COUNT (BEAKER) (test easu=033) 3.16 M/ L 3.93-5.22 HEMOGLOBIN (BEAKER) (test kycx=123) 8.2 GM/DL 11.2-15.7 HEMATOCRIT (BEAKER) (test meil=662) 26.6 % 34.1-44.9 MEAN CORPUSCULAR VOLUME (BEAKER) (test drko=991) 84.2 fL 79.4-94.8 MEAN CORPUSCULAR HEMOGLOBIN (BEAKER) (test 25.9 pg 25.6-32.2 bgla=450) MEAN CORPUSCULAR HEMOGLOBIN CONC (BEAKER) (test 30.8 GM/DL 32.2-35.5 ghar=921) RED CELL DISTRIBUTION WIDTH (BEAKER) (test 15.0 % 11.7-14.4 uoru=328) PLATELET COUNT (BEAKER) (test rorr=898) 195 K/CU MM 150-450 MEAN PLATELET VOLUME (BEAKER) (test bvbz=759) 10.6 fL 9.4-12.3 NUCLEATED RED BLOOD CELLS (BEAKER) (test 0 /100 WBC 0-0 rfma=873) NEUTROPHILS RELATIVE PERCENT (BEAKER) (test 73 % nljg=777) LYMPHOCYTES RELATIVE PERCENT (BEAKER) (test 18 % siha=751) MONOCYTES RELATIVE PERCENT (BEAKER) (test 6 % kwie=110) EOSINOPHILS RELATIVE PERCENT (BEAKER) (test 2 % yjal=780) BASOPHILS RELATIVE PERCENT (BEAKER) (test 1 % svjw=655) NEUTROPHILS ABSOLUTE COUNT (BEAKER) (test 7.95 K/ L 1.56-6.13 cump=157) LYMPHOCYTES ABSOLUTE COUNT (BEAKER) (test 1.93 K/ L 1.18-3.74 jlmm=996) MONOCYTES ABSOLUTE COUNT (BEAKER) (test 0.66 K/ L 0.24-0.36 jvkm=841) EOSINOPHILS ABSOLUTE COUNT (BEAKER) (test 0.18 K/ L 0.04-0.36 dwsp=591) BASOPHILS ABSOLUTE COUNT (BEAKER) (test 0.07 K/ L 0.01-0.08 hnyx=349) IMMATURE GRANULOCYTES-RELATIVE PERCENT (BEAKER) 0 % 0-1 (test zgbf=8186) BLOOD GAS, [id number] 03:18:00 Test Item Value Reference Range Comments PH ARTERIAL (BEAKER) (test fyab=722) 7.40 7.35-7.45 PCO2 ARTERIAL (BEAKER) (test fgnw=912) 40 mmHg 35-45 PO2 ARTERIAL (BEAKER) (test jqme=767) 63 mmHg 80-90 O2 SATURATION ARTERIAL (BEAKER) (test tvcb=889) 92.3 % 96.0-97.0 HCO3 ARTERIAL (BEAKER) (test dxwh=594) 24 mmol/L 21-29 BASE EXCESS ARTERIAL (BEAKER) (test brbl=340) -0.6 mmol/L -2.0-3.0 PATIENT TEMPERATURE (BEAKER) (test llzm=1720) 36.8 C FIO2 (BEAKER) (test pvtf=0776) 36.0 % CALCIUM, [id number] 16:32:00 Test Item Value Reference Range Comments CALCIUM IONIZED (BEAKER) (test xbok=029) 1.11 mmol/L 1.12-1.27 PH, BLOOD (BEAKER) (test fodl=1637) 7.39 BASIC METABOLIC [id number] 15:43:00 Test Item Value Reference Range Comments SODIUM (BEAKER) (test 139 meq/L 136-145 hmgf=121) POTASSIUM (BEAKER) (test 4.6 meq/L 3.5-5.1 hhpv=673) CHLORIDE (BEAKER) (test 106 meq/L 98-107 utvd=353) CO2 (BEAKER) (test 21 meq/L 22-29 wamj=346) BLOOD UREA NITROGEN 54 mg/dL 7-21 (BEAKER) (test vwxb=890) CREATININE (BEAKER) (test 3.08 mg/dL 0.57-1.25 ufnx=916) GLUCOSE RANDOM (BEAKER) 116 mg/dL 70-105 (test zbxa=920) CALCIUM (BEAKER) (test 8.1 mg/dL 8.4-10.2 odwd=228) EGFR (BEAKER) (test 15 mL/min/1.73 sq m ESTIMATED GFR IS NOT jxsy=7051) ACCURATE CREATININE CLEARANCE IN PREDICTING GLOMERULAR FILTRATION RATE. ESTIMATED GFR IS NOT APPLICABLE FOR DIALYSIS PATIENTS. POCT-GLUCOSE [id number] 12:53:00 Test Item Value Reference Range Comments POC-GLUCOSE METER (BEAKER) 118 mg/dL 70-110 TESTED AT [address] (test wupi=5615) [place] [address] BLOOD GAS, [id number] 10:42:00 Test Item Value Reference Range Comments PH ARTERIAL (BEAKER) (test ifqf=993) 7.40 7.35-7.45 PCO2 ARTERIAL (BEAKER) (test lokx=550) 38 mmHg 35-45 PO2 ARTERIAL (BEAKER) (test gzgl=206) 78 mmHg 80-90 O2 SATURATION ARTERIAL (BEAKER) (test qxxc=931) 95.6 % 96.0-97.0 HCO3 ARTERIAL (BEAKER) (test aldz=221) 23 mmol/L 21-29 BASE EXCESS ARTERIAL (BEAKER) (test thba=704) -1.4 mmol/L -2.0-3.0 PATIENT TEMPERATURE (BEAKER) (test orjl=2696) 36.9 C FIO2 (BEAKER) (test dmmo=3651) 40.0 % POCT-GLUCOSE [id number] 06:46:00 Test Item Value Reference Range Comments POC-GLUCOSE METER (BEAKER) 106 mg/dL 70-110 TESTED AT [address] (test obdd=2363) [place] [address] RAD, CHEST, 1 VIEW, NON [id number] 05:05:00while patient is intubated or has chest [...] MDReport Verified Date/Time: 05/22/2017 05:05:00 Reading Location: [facility] C013Y CT Body ReadingRoom BASIC METABOLIC [id number] 05:00:00 Test Item Value Reference Range Comments SODIUM (BEAKER) (test 138 meq/L 136-145 ofqy=159) POTASSIUM (BEAKER) (test 4.5 meq/L 3.5-5.1 htot=500) CHLORIDE (BEAKER) (test 107 meq/L 98-107 wntd=947) CO2 (BEAKER) (test 21 meq/L 22-29 ucym=881) BLOOD UREA NITROGEN 53 mg/dL 7-21 (BEAKER) (test sgkv=838) CREATININE (BEAKER) (test 3.23 mg/dL 0.57-1.25 pwjx=799) GLUCOSE RANDOM (BEAKER) 126 mg/dL 70-105 (test xdav=945) CALCIUM (BEAKER) (test 8.1 mg/dL 8.4-10.2 lgcb=369) EGFR (BEAKER) (test 15 mL/min/1.73 sq m ESTIMATED GFR IS NOT hkoy=9791) ACCURATE CREATININE CLEARANCE IN PREDICTING GLOMERULAR FILTRATION RATE. ESTIMATED GFR IS NOT APPLICABLE FOR DIALYSIS PATIENTS. [id number] 04:41:00 Test Item Value Reference Range Comments PHOSPHORUS (BEAKER) (test vndr=879) 6.4 mg/dL 2.3-4.7 [id number] 04:41:00 Test Item Value Reference Range Comments MAGNESIUM (BEAKER) (test bwno=977) 2.6 mg/dL 1.6-2.6 CALCIUM, [id number] 04:26:00 Test Item Value Reference Range Comments CALCIUM IONIZED (BEAKER) (test uybr=082) 1.09 mmol/L 1.12-1.27 PH, BLOOD (BEAKER) (test blgw=5677) 7.40 OXYGEN SATURATION, [id number] 04:25:00 Test Item Value Reference Range Comments O2 SATURATION (MEASURED) (BEAKER) (test ynva=7881) 77.0 % CBC W/PLT COUNT & AUTO [id number] 04:17:00 Test Item Value Reference Range Comments WHITE BLOOD CELL COUNT (BEAKER) (test dimx=135) 8.9 K/ L 3.5-10.5 RED BLOOD CELL COUNT (BEAKER) (test kfin=451) 3.14 M/ L 3.93-5.22 HEMOGLOBIN (BEAKER) (test pjya=373) 8.1 GM/DL 11.2-15.7 HEMATOCRIT (BEAKER) (test nhpg=817) 26.1 % 34.1-44.9 MEAN CORPUSCULAR VOLUME (BEAKER) (test ffjk=881) 83.1 fL 79.4-94.8 MEAN CORPUSCULAR HEMOGLOBIN (BEAKER) (test 25.8 pg 25.6-32.2 hdcs=002) MEAN CORPUSCULAR HEMOGLOBIN CONC (BEAKER) (test 31.0 GM/DL 32.2-35.5 xedr=855) RED CELL DISTRIBUTION WIDTH (BEAKER) (test 15.3 % 11.7-14.4 eefq=094) PLATELET COUNT (BEAKER) (test pbir=074) 156 K/CU MM 150-450 MEAN PLATELET VOLUME (BEAKER) (test ndgg=082) 10.2 fL 9.4-12.3 NUCLEATED RED BLOOD CELLS (BEAKER) (test 0 /100 WBC 0-0 syyt=277) NEUTROPHILS RELATIVE PERCENT (BEAKER) (test 68 % vwbq=245) LYMPHOCYTES RELATIVE PERCENT (BEAKER) (test 22 % maqt=763) MONOCYTES RELATIVE PERCENT (BEAKER) (test 8 % gbob=362) EOSINOPHILS RELATIVE PERCENT (BEAKER) (test 1 % bjrm=293) BASOPHILS RELATIVE PERCENT (BEAKER) (test 1 % cxit=587) NEUTROPHILS ABSOLUTE COUNT (BEAKER) (test 6.05 K/ L 1.56-6.13 zgzb=212) LYMPHOCYTES ABSOLUTE COUNT (BEAKER) (test 1.91 K/ L 1.18-3.74 wymu=885) MONOCYTES ABSOLUTE COUNT (BEAKER) (test 0.74 K/ L 0.24-0.36 dpxu=808) EOSINOPHILS ABSOLUTE COUNT (BEAKER) (test 0.08 K/ L 0.04-0.36 dbln=753) BASOPHILS ABSOLUTE COUNT (BEAKER) (test 0.05 K/ L 0.01-0.08 svuw=175) IMMATURE GRANULOCYTES-RELATIVE PERCENT (BEAKER) 0 % 0-1 (test tdrg=8165) LACTIC ACID, ARTERIAL, WHOLE [id number] 00:07:00 Test Item Value Reference Range Comments LACTATE BLOOD ARTERIAL (2) 1.0 mmol/L 0.5-2.2 Specimen slightly hemolyzed (BEAKER) (test bgvc=3303) Effective 08/02/2015: Units/Reference Range ChangeNew: 0.5-2.2 mmol/L Previous: 5 -20 mg/dLPOCT-GLUCOSE [id number] 23:47:00 Test Item Value Reference Range Comments POC-GLUCOSE METER (BEAKER) 180 mg/dL 70-110 TESTED AT [facility] [address] (test klol=8488) [facility] [address] BLOOD GAS, [id number] 23:46:00 Test Item Value Reference Range Comments PH ARTERIAL (BEAKER) (test fktv=651) 7.40 7.35-7.45 PCO2 ARTERIAL (BEAKER) (test gbfa=515) 37 mmHg 35-45 PO2 ARTERIAL (BEAKER) (test nolh=143) 136 mmHg 80-90 O2 SATURATION ARTERIAL (BEAKER) (test vhkx=762) 98.7 % 96.0-97.0 HCO3 ARTERIAL (BEAKER) (test urts=411) 22 mmol/L 21-29 BASE EXCESS ARTERIAL (BEAKER) (test lipd=687) -2.4 mmol/L -2.0-3.0 PATIENT TEMPERATURE (BEAKER) (test gjxl=0748) 37.0 C FIO2 (BEAKER) (test ieqf=6661) 100.0 % SODIUM NA-STAT [id number] 23:46:00 Test Item Value Reference Range Comments SODIUM (BEAKER) (test yfdw=045) 134 meq/L 135-148 GLUCOSE-STAT [id number] 23:46:00 Test Item Value Reference Range Comments GLUCOSE RANDOM (BEAKER) (test ypax=471) 119 mg/dL 70-110 HGB/HCT (H&H) - STAT [id number] 23:46:00 Test Item Value Reference Range Comments HEMOGLOBIN (BEAKER) (test kezr=785) 8.8 g/dL 12.0-15.0 HEMATOCRIT (BEAKER) (test bxpa=689) 26.0 % 36.0-45.0 OXYGEN SATURATION, [id number] 23:45:00 Test Item Value Reference Range Comments O2 SATURATION (MEASURED) (BEAKER) (test fiqd=2330) 68.1 % POTASSIUM-STAT [id number] 23:45:00 Test Item Value Reference Range Comments POTASSIUM (BEAKER) (test xcmi=956) 5.5 meq/L 3.6-5.5 POCT-GLUCOSE [id number] 20:58:00 Test Item Value Reference Range Comments POC-GLUCOSE METER (BEAKER) 133 mg/dL 70-110 TESTED AT [address] (test mkpl=0958) [facility] [address] POCT-GLUCOSE [id number] 17:58:00 Test Item Value Reference Range Comments POC-GLUCOSE METER (BEAKER) 210 mg/dL 70-110 TESTED AT [address] (test ruwk=5234) [facility] [address] POCT-GLUCOSE [id number] 17:58:00 Test Item Value Reference Range Comments POC-GLUCOSE METER (BEAKER) 211 mg/dL 70-110 TESTED AT [address] (test cysm=7585) [facility] [address] POCT-GLUCOSE [id number] 17:58:00 Test Item Value Reference Range Comments POC-GLUCOSE METER (BEAKER) 232 mg/dL 70-110 TESTED AT [address] (test dgku=9175) [facility] [address] POCT-GLUCOSE [id number] 17:58:00 Test Item Value Reference Range Comments POC-GLUCOSE METER (BEAKER) 262 mg/dL 70-110 TESTED AT [address] (test ngbb=0782) [place] [id number] BLOOD GAS, [id number] 17:01:00 Test Item Value Reference Range Comments PH ARTERIAL (BEAKER) (test nksj=654) 7.38 7.35-7.45 PCO2 ARTERIAL (BEAKER) (test ykal=190) 39 mmHg 35-45 PO2 ARTERIAL (BEAKER) (test bzis=075) 75 mmHg 80-90 O2 SATURATION ARTERIAL (BEAKER) (test iirj=870) 94.9 % 96.0-97.0 HCO3 ARTERIAL (BEAKER) (test oixw=494) 23 mmol/L 21-29 BASE EXCESS ARTERIAL (BEAKER) (test jfjs=993) -2.5 mmol/L -2.0-3.0 PATIENT TEMPERATURE (BEAKER) (test rkvi=7706) 36.8 C FIO2 (BEAKER) (test xsqg=7862) 60.0 % POTASSIUM-STAT [id number] 17:00:00 Test Item Value Reference Range Comments POTASSIUM (BEAKER) (test cdmf=818) 4.8 meq/L 3.6-5.5 POCT-GLUCOSE [id number] 15:52:00 Test Item Value Reference Range Comments POC-GLUCOSE METER (BEAKER) 267 mg/dL 70-110 TESTED AT [address] (test hxpz=4062) [place] [address] POCT-GLUCOSE [id number] 14:42:00 Test Item Value Reference Range Comments POC-GLUCOSE METER (BEAKER) 231 mg/dL 70-110 TESTED AT [address] (test vfpf=0039) [place] [address] BODY FLUID CELL COUNT WITH [id number] 14:41:00 Test Item Value Reference Range Comments APPEARANCE FLUID (BEAKER) (test iiqs=853) Turbid Clear COLOR FLUID (BEAKER) (test xsis=706) Colorless Colorless, Straw RBC FLUID (BEAKER) (test rjzy=291) 2000 /cu mm <=1 ADJUSTED WBC FLUID (BEAKER) (test bgaj=8225) 1489 /cu mm <=5 LINING CELLS (BEAKER) (test mwhh=4916) 119 /cu mm <=1 NEUTROPHILS FLUID (BEAKER) (test nohy=2100) 40 % LYMPHS FLUID (BEAKER) (test sgqe=926) 34 % MONO/MACROPHAGE FLUID (BEAKER) (test yyqt=653) 26 % EOSINOPHILS FLUID (BEAKER) (test ewqx=695) 0 % BASO FLUID (BEAKER) (test owas=193) 0 % CONTAINER BODY FLUID (BEAKER) (test mcvr=7650) EDTA Tube BASIC METABOLIC [id number] 14:11:00 Test Item Value Reference Range Comments SODIUM (BEAKER) (test 137 meq/L 136-145 djqd=517) POTASSIUM (BEAKER) (test 5.6 meq/L 3.5-5.1 laqf=265) CHLORIDE (BEAKER) (test 106 meq/L 98-107 haqp=921) CO2 (BEAKER) (test 20 meq/L 22-29 ryhf=726) BLOOD UREA NITROGEN 48 mg/dL 7-21 (BEAKER) (test azzm=341) CREATININE (BEAKER) (test 2.50 mg/dL 0.57-1.25 usdd=402) GLUCOSE RANDOM (BEAKER) 221 mg/dL 70-105 (test adkd=382) CALCIUM (BEAKER) (test 8.1 mg/dL 8.4-10.2 lyqe=241) EGFR (BEAKER) (test 20 mL/min/1.73 sq m ESTIMATED GFR IS NOT iypk=5406) ACCURATE CREATININE CLEARANCE IN PREDICTING GLOMERULAR FILTRATION RATE. ESTIMATED GFR IS NOT APPLICABLE FOR DIALYSIS PATIENTS. [id number] 14:08:00 Test Item Value Reference Range Comments PHOSPHORUS (BEAKER) (test csvq=200) 7.2 mg/dL 2.3-4.7 [id number] 14:08:00 Test Item Value Reference Range Comments MAGNESIUM (BEAKER) (test oidh=580) 2.6 mg/dL 1.6-2.6 POCT-GLUCOSE [id number] 12:49:00 Test Item Value Reference Range Comments POC-GLUCOSE METER (BEAKER) 224 mg/dL 70-110 TESTED AT [facility] [address] (test ctnz=9172) [facility] [address] POCT-GLUCOSE [id number] 12:49:00 Test Item Value Reference Range Comments POC-GLUCOSE METER (BEAKER) 248 mg/dL 70-110 TESTED AT [facility] [address] (test ffms=5247) [facility] [address] RAD, CHEST, 1 VIEW, NON [id number] 12:32:00Reason for exam:->re- intubationShould this be performed [...] [place] Verified Date/Time: 05/21/2017 12:32:08 Reading Location: [facility] Radiology Reading Room POTASSIUM-STAT [id number] 12:28:00 Test Item Value Reference Range Comments POTASSIUM (BEAKER) (test ofle=776) 5.5 meq/L 3.6-5.5 BLOOD GAS, [id number] 12:28:00 Test Item Value Reference Range Comments PH ARTERIAL (BEAKER) (test todq=667) 7.32 7.35-7.45 PCO2 ARTERIAL (BEAKER) (test pmqs=279) 45 mmHg 35-45 PO2 ARTERIAL (BEAKER) (test sgwk=705) 304 mmHg 80-90 O2 SATURATION ARTERIAL (BEAKER) (test zawu=601) 99.7 % 96.0-97.0 HCO3 ARTERIAL (BEAKER) (test objt=346) 22 mmol/L 21-29 BASE EXCESS ARTERIAL (BEAKER) (test awda=353) -3.7 mmol/L -2.0-3.0 PATIENT TEMPERATURE (BEAKER) (test wewg=4952) 37.0 C FIO2 (BEAKER) (test dzvd=4110) 100.0 % BLOOD GAS, [id number] 10:53:00 Test Item Value Reference Range Comments PH ARTERIAL (BEAKER) (test ojuu=704) 7.36 7.35-7.45 PCO2 ARTERIAL (BEAKER) (test cllw=348) 35 mmHg 35-45 PO2 ARTERIAL (BEAKER) (test phah=427) 40 mmHg 80-90 O2 SATURATION ARTERIAL (BEAKER) (test qelf=137) 82.3 % 96.0-97.0 HCO3 ARTERIAL (BEAKER) (test ycsg=075) 20 mmol/L 21-29 BASE EXCESS ARTERIAL (BEAKER) (test ccze=734) -5.9 mmol/L -2.0-3.0 PATIENT TEMPERATURE (BEAKER) (test ggfx=6266) 33.7 C FIO2 (BEAKER) (test ifnr=6431) 36.0 % RAD, CHEST, 1 VIEW, NON [id number] 08:46:00while patient is intubated or has chest [...] Verified Date/ Time: 05/21/2017 08:46:27 Reading Location: [facility] Radiology Reading Room BLOOD GAS, [id number] 05:41:00 Test Item Value Reference Range Comments PH ARTERIAL (BEAKER) (test elcn=325) 7.33 7.35-7.45 PCO2 ARTERIAL (BEAKER) (test bxbc=847) 40 mm Hg 35-45 PO2 ARTERIAL (BEAKER) (test gmvb=879) 106 mm Hg 80-90 O2 SATURATION ARTERIAL (BEAKER) (test rnor=206) 97.5 % 96.0-97.0 HCO3 ARTERIAL (BEAKER) (test wqxd=539) 21 mmol/L 21-29 BASE EXCESS ARTERIAL (BEAKER) (test mcdl=184) -5.1 mmol/L -2.0-3.0 PATIENT TEMPERATURE (BEAKER) (test want=2672) 37.0 FIO2 (BEAKER) (test wmtm=2338) 40 CALCIUM, [id number] 04:35:00 Test Item Value Reference Range Comments CALCIUM IONIZED (BEAKER) (test jgye=452) 1.13 mmol/L 1.12-1.27 PH, BLOOD (BEAKER) (test tsxq=6778) 7.32 BLOOD GAS, [id number] 04:28:00 Test Item Value Reference Range Comments PH ARTERIAL (BEAKER) (test szcc=849) 7.32 7.35-7.45 PCO2 ARTERIAL (BEAKER) (test rtse=070) 40 mmHg 35-45 PO2 ARTERIAL (BEAKER) (test rwhk=638) 100 mmHg 80-90 O2 SATURATION ARTERIAL (BEAKER) (test bzdr=236) 97.2 % 96.0-97.0 HCO3 ARTERIAL (BEAKER) (test jdrb=740) 20 mmol/L 21-29 BASE EXCESS ARTERIAL (BEAKER) (test eqim=225) -5.7 mmol/L -2.0-3.0 PATIENT TEMPERATURE (BEAKER) (test ghjg=3804) 36.9 C FIO2 (BEAKER) (test uzhy=7784) 40.0 % [id number] 04:20:00 Test Item Value Reference Range Comments PHOSPHORUS (BEAKER) (test wsel=900) 6.2 mg/dL 2.3-4.7 [id number] 04:20:00 Test Item Value Reference Range Comments MAGNESIUM (BEAKER) (test kred=626) 2.4 mg/dL 1.6-2.6 HEPATIC FUNCTION [id number] 04:20:00 Test Item Value Reference Range Comments TOTAL PROTEIN (BEAKER) (test izvr=730) 4.8 gm/dL 6.0-8.3 ALBUMIN (BEAKER) (test hbpg=1453) 2.5 g/dL 3.5-5.0 BILIRUBIN TOTAL (BEAKER) (test nahl=297) 0.7 mg/dL 0.2-1.2 BILIRUBIN DIRECT (BEAKER) (test odpi=660) 0.3 mg/dL 0.1-0.5 ALKALINE PHOSPHATASE (BEAKER) (test agji=855) 96 U/L 40-150 AST (SGOT) (BEAKER) (test vuqa=338) 31 U/L 5-34 ALT (SGPT) (BEAKER) (test ttio=812) 11 U/L 6-55 BASIC METABOLIC [id number] 04:20:00 Test Item Value Reference Range Comments SODIUM (BEAKER) (test 134 meq/L 136-145 hwyk=292) POTASSIUM (BEAKER) (test 5.0 meq/L 3.5-5.1 jlms=360) CHLORIDE (BEAKER) (test 105 meq/L 98-107 rxbe=795) CO2 (BEAKER) (test 18 meq/L 22-29 noil=790) BLOOD UREA NITROGEN 45 mg/dL 7-21 (BEAKER) (test stdg=101) CREATININE (BEAKER) (test 1.91 mg/dL 0.57-1.25 oand=396) GLUCOSE RANDOM (BEAKER) 247 mg/dL 70-105 (test khvm=167) CALCIUM (BEAKER) (test 7.9 mg/dL 8.4-10.2 njda=330) EGFR (BEAKER) (test 27 mL/min/1.73 sq m ESTIMATED GFR IS NOT dxpq=5699) ACCURATE CREATININE CLEARANCE IN PREDICTING GLOMERULAR FILTRATION RATE. ESTIMATED GFR IS NOT APPLICABLE FOR DIALYSIS PATIENTS. OXYGEN SATURATION, [id number] 04:18:00 Test Item Value Reference Range Comments O2 SATURATION (MEASURED) (BEAKER) (test tzpt=7260) 68.0 % LACTIC ACID, ARTERIAL, WHOLE [id number] 04:12:00 Test Item Value Reference Range Comments LACTATE BLOOD ARTERIAL (2) (BEAKER) (test 1.0 mmol/L 0.5-2.2 dgvq=2706) Effective 08/02/2015: Units/Reference Range ChangeNew: 0.5-2.2 mmol/L Previous: 5 -20 mg/dLCBC W/PLT COUNT & AUTO [id number] 04:00:00 Test Item Value Reference Range Comments WHITE BLOOD CELL COUNT (BEAKER) (test swld=722) 12.0 K/ L 3.5-10.5 RED BLOOD CELL COUNT (BEAKER) (test hoog=584) 3.32 M/ L 3.93-5.22 HEMOGLOBIN (BEAKER) (test hkpw=993) 8.8 GM/DL 11.2-15.7 HEMATOCRIT (BEAKER) (test wrwu=881) 28.3 % 34.1-44.9 MEAN CORPUSCULAR VOLUME (BEAKER) (test lvvy=100) 85.2 fL 79.4-94.8 MEAN CORPUSCULAR HEMOGLOBIN (BEAKER) (test 26.5 pg 25.6-32.2 jmue=286) MEAN CORPUSCULAR HEMOGLOBIN CONC (BEAKER) (test 31.1 GM/DL 32.2-35.5 qzza=593) RED CELL DISTRIBUTION WIDTH (BEAKER) (test 15.0 % 11.7-14.4 qihx=012) PLATELET COUNT (BEAKER) (test viam=357) 157 K/CU MM 150-450 MEAN PLATELET VOLUME (BEAKER) (test hhmq=508) 10.7 fL 9.4-12.3 NUCLEATED RED BLOOD CELLS (BEAKER) (test 0 /100 WBC 0-0 gnxt=649) NEUTROPHILS RELATIVE PERCENT (BEAKER) (test 91 % txsp=673) LYMPHOCYTES RELATIVE PERCENT (BEAKER) (test 4 % qvxo=244) MONOCYTES RELATIVE PERCENT (BEAKER) (test 4 % kbmz=595) EOSINOPHILS RELATIVE PERCENT (BEAKER) (test 0 % wxue=856) BASOPHILS RELATIVE PERCENT (BEAKER) (test 0 % gwme=142) NEUTROPHILS ABSOLUTE COUNT (BEAKER) (test 10.95 K/ L 1.56-6.13 ehtd=157) LYMPHOCYTES ABSOLUTE COUNT (BEAKER) (test 0.52 K/ L 1.18-3.74 qlhc=990) MONOCYTES ABSOLUTE COUNT (BEAKER) (test 0.42 K/ L 0.24-0.36 txth=635) EOSINOPHILS ABSOLUTE COUNT (BEAKER) (test 0.01 K/ L 0.04-0.36 dedq=731) BASOPHILS ABSOLUTE COUNT (BEAKER) (test 0.05 K/ L 0.01-0.08 fhjx=276) IMMATURE GRANULOCYTES-RELATIVE PERCENT (BEAKER) 0 % 0-1 (test yrlu=3929) BLOOD GAS, [id number] 00:06:00 Test Item Value Reference Range Comments PH ARTERIAL (BEAKER) (test pvsz=051) 7.26 7.35-7.45 PCO2 ARTERIAL (BEAKER) (test qvei=621) 52 mmHg 35-45 PO2 ARTERIAL (BEAKER) (test wwya=153) 88 mmHg 80-90 O2 SATURATION ARTERIAL (BEAKER) (test fwdt=118) 95.7 % 96.0-97.0 HCO3 ARTERIAL (BEAKER) (test giuv=632) 23 mmol/L 21-29 BASE EXCESS ARTERIAL (BEAKER) (test vbwm=056) -4.0 mmol/L -2.0-3.0 PATIENT TEMPERATURE (BEAKER) (test kqfj=6593) 36.4 C FIO2 (BEAKER) (test qvqp=1710) 40.0 % [id number] 18:55:00 Test Item Value Reference Range Comments PHOSPHORUS (BEAKER) (test shgt=357) 4.8 mg/dL 2.3-4.7 [id number] 18:55:00 Test Item Value Reference Range Comments MAGNESIUM (BEAKER) (test jpwh=830) 2.3 mg/dL 1.6-2.6 BASIC METABOLIC [id number] 18:55:00 Test Item Value Reference Range Comments SODIUM (BEAKER) (test 136 meq/L 136-145 brva=701) POTASSIUM (BEAKER) (test 4.5 meq/L 3.5-5.1 fkzp=101) CHLORIDE (BEAKER) (test 108 meq/L 98-107 nssx=683) CO2 (BEAKER) (test 21 meq/L 22-29 qnld=625) BLOOD UREA NITROGEN 39 mg/dL 7-21 (BEAKER) (test kimk=842) CREATININE (BEAKER) (test 1.58 mg/dL 0.57-1.25 qkdt=718) GLUCOSE RANDOM (BEAKER) 172 mg/dL 70-105 (test ddfv=920) CALCIUM (BEAKER) (test 7.9 mg/dL 8.4-10.2 zgcs=784) EGFR (BEAKER) (test 33 mL/min/1.73 sq m ESTIMATED GFR IS NOT nlel=1402) ACCURATE CREATININE CLEARANCE IN PREDICTING GLOMERULAR FILTRATION RATE. ESTIMATED GFR IS NOT APPLICABLE FOR DIALYSIS PATIENTS. LACTIC ACID, ARTERIAL, WHOLE [id number] 18:53:00 Test Item Value Reference Range Comments LACTATE BLOOD ARTERIAL (2) 0.9 mmol/L 0.5-2.2 Specimen slightly hemolyzed (BEAKER) (test bmsl=6930) Effective 08/02/2015: Units/Reference Range ChangeNew: 0.5-2.2 mmol/L Previous: 5 -20 mg/dLRAD, CHEST, 1 VIEW, NON [id number] 18:44:00Reason for exam:-> postop cardiacShould this be [...] MDReport Verified Date/Time: 2017 18:44:30 Reading Location: [facility] [id number] Consult Reading Room Electronically signed by: LISA LI M.D. on05/20/2017 06:44 PMCBC W/PLT COUNT & AUTO [id number] 18:38:00 Test Item Value Reference Range Comments WHITE BLOOD CELL COUNT (BEAKER) (test mxpg=198) 8.7 K/ L 3.5-10.5 RED BLOOD CELL COUNT (BEAKER) (test eqyd=726) 3.33 M/ L 3.93-5.22 HEMOGLOBIN (BEAKER) (test azgv=411) 8.7 GM/DL 11.2-15.7 HEMATOCRIT (BEAKER) (test wqeb=098) 27.9 % 34.1-44.9 MEAN CORPUSCULAR VOLUME (BEAKER) (test wesj=349) 83.8 fL 79.4-94.8 MEAN CORPUSCULAR HEMOGLOBIN (BEAKER) (test 26.1 pg 25.6-32.2 ojgh=951) MEAN CORPUSCULAR HEMOGLOBIN CONC (BEAKER) (test 31.2 GM/DL 32.2-35.5 tvmh=735) RED CELL DISTRIBUTION WIDTH (BEAKER) (test 14.9 % 11.7-14.4 cnqn=147) PLATELET COUNT (BEAKER) (test bott=344) 137 K/CU MM 150-450 MEAN PLATELET VOLUME (BEAKER) (test rcvp=877) 10.2 fL 9.4-12.3 NUCLEATED RED BLOOD CELLS (BEAKER) (test 0 /100 WBC 0-0 pgvm=382) NEUTROPHILS RELATIVE PERCENT (BEAKER) (test 79 % sbyt=732) LYMPHOCYTES RELATIVE PERCENT (BEAKER) (test 12 % ovwg=942) MONOCYTES RELATIVE PERCENT (BEAKER) (test 7 % ahzu=553) EOSINOPHILS RELATIVE PERCENT (BEAKER) (test 1 % idpj=332) BASOPHILS RELATIVE PERCENT (BEAKER) (test 1 % wolh=131) NEUTROPHILS ABSOLUTE COUNT (BEAKER) (test 6.83 K/ L 1.56-6.13 tyqj=588) LYMPHOCYTES ABSOLUTE COUNT (BEAKER) (test 1.06 K/ L 1.18-3.74 fghd=272) MONOCYTES ABSOLUTE COUNT (BEAKER) (test 0.56 K/ L 0.24-0.36 oeum=108) EOSINOPHILS ABSOLUTE COUNT (BEAKER) (test 0.12 K/ L 0.04-0.36 jiwm=502) BASOPHILS ABSOLUTE COUNT (BEAKER) (test 0.04 K/ L 0.01-0.08 stbq=895) IMMATURE GRANULOCYTES-RELATIVE PERCENT (BEAKER) 1 % 0-1 (test dkby=4517) OXYGEN SATURATION, [id number] 18:36:00 Test Item Value Reference Range Comments O2 SATURATION (MEASURED) (BEAKER) (test wclf=6120) 72.5 % From distal port of IJ central venous catheterSODIUM NA-STAT [id number] 18:30 :00 Test Item Value Reference Range Comments SODIUM (BEAKER) (test nbwt=766) 132 meq/L 135-148 HGB/HCT (H&H) - STAT [id number] 18:30:00 Test Item Value Reference Range Comments HEMOGLOBIN (BEAKER) (test rzbt=883) 9.4 g/dL 12.0-15.0 HEMATOCRIT (BEAKER) (test pnlw=756) 28.0 % 36.0-45.0 GLUCOSE-STAT [id number] 18:30:00 Test Item Value Reference Range Comments GLUCOSE RANDOM (BEAKER) (test bmvi=519) 159 mg/dL 70-110 BLOOD GAS, [id number] 18:30:00 Test Item Value Reference Range Comments PH ARTERIAL (BEAKER) (test uszd=171) 7.34 7.35-7.45 PCO2 ARTERIAL (BEAKER) (test edqu=241) 43 mmHg 35-45 PO2 ARTERIAL (BEAKER) (test ulpe=779) 76 mmHg 80-90 O2 SATURATION ARTERIAL (BEAKER) (test njiq=821) 94.9 % 96.0-97.0 HCO3 ARTERIAL (BEAKER) (test qqyn=629) 23 mmol/L 21-29 BASE EXCESS ARTERIAL (BEAKER) (test gcnm=283) -2.6 mmol/L -2.0-3.0 PATIENT TEMPERATURE (BEAKER) (test abnp=3925) 36.4 C FIO2 (BEAKER) (test styr=0295) 60.0 % CALCIUM, [id number] 18:30:00 Test Item Value Reference Range Comments CALCIUM IONIZED (BEAKER) (test oafy=825) 0.94 mmol/L 1.12-1.27 PH, BLOOD (BEAKER) (test imdx=0110) 7.34 POTASSIUM-STAT [id number] 18:28:00 Test Item Value Reference Range Comments POTASSIUM (BEAKER) (test qjgk=052) 4.4 meq/L 3.6-5.5 THROMBOELASTOGRAPH ([id number] 18:11:00 Test Item Value Reference Range Comments TEG ACTIVATED CLOTTING TIME (BEAKER) (test 6.7 minutes 4.0-7.0 jgpf=8624) TEG FIBRINOGEN ACTIVITY (BEAKER) (test 66.6 degrees 61.0-73.0 ajqq=8031) TEG PLT. AGGREGATION (BEAKER) (test cunj=7008) 62.4 MM 55.0-65.0 TEG FIBRINOLYSIS (BEAKER) (test tmjd=1152) 0.0 % 0.0-5.0 TGH ACTIVATED CLOTTING TIME (BEAKER) (test 6.7 minutes 4.0-7.0 jryu=8485) [facility]GH FIBRINOGEN ACTIVITY ([facility]) (test 69.0 degrees 61.0-73.0 jtrg=7901) TGH PLT. AGGREGATION ([facility]) (test natp=8561) 62.8 MM 55.0-65.0 TGH FIBRINOLYSIS ([facility]) (test imen=4107) 0.0 % 0.0-5.0 [id number] 17:53:00 Test Item Value Reference Range Comments ACTIVATED CLOTTING TIME 103 sec TESTED AT [address] ([facility]) (test xizd=474) [place] [address] [id number] 17:53:00 Test Item Value Reference Range Comments ACTIVATED CLOTTING TIME 466 sec TESTED AT [address] ([facility]) (test wbaj=012) [place] [address] [id number] 17:53:00 Test Item Value Reference Range Comments ACTIVATED CLOTTING TIME 543 sec TESTED AT [address] ([facility]) (test zktx=092) [place] [address] [id number] 17:53:00 Test Item Value Reference Range Comments ACTIVATED CLOTTING TIME 549 sec TESTED AT [address] ([facility]) (test yqid=751) [place] [address] [id number] 17:53:00 Test Item Value Reference Range Comments ACTIVATED CLOTTING TIME 632 sec TESTED AT [address] ([facility]) (test qgtq=607) [place] [address] [id number] 17:53:00 Test Item Value Reference Range Comments ACTIVATED CLOTTING TIME 494 sec TESTED AT [address] ([facility]) (test utga=676) [place] [address] [id number] 17:53:00 Test Item Value Reference Range Comments ACTIVATED CLOTTING TIME 587 sec TESTED AT [address] ([facility]) (test rxaa=141) [place] [address] [id number] 17:53:00 Test Item Value Reference Range Comments ACTIVATED CLOTTING TIME 626 sec TESTED AT [address] ([facility]) (test pfkr=210) [place] [address] [id number] 17:52:00 Test Item Value Reference Range Comments ACTIVATED CLOTTING TIME 808 sec TESTED AT [facility] [address] (BEAKER) (test nosv=973) [place] [address] [id number] 16:54:00 Test Item Value Reference Range Comments PARTIAL THROMBOPLASTIN TIME (BEAKER) (test 40.2 seconds 22.5-36.0 kwqx=172) [id number] 16:53:00 Test Item Value Reference Range Comments FIBRINOGEN LEVEL (BEAKER) (test dmeu=341) 306 mg/dl 225-434 PROTHROMBIN [id number] 16:50:00 Test Item Value Reference Range Comments PROTIME (BEAKER) (test csdt=462) 19.6 seconds 11.7-14.7 INR (BEAKER) (test gpsw=119) 1.7 <=5.9 RECOMMENDED COUMADIN/WARFARIN INR THERAPY RANGESSTANDARD DOSE: 2.0 - 3.0 Includes: PROPHYLAXIS forvenous thrombosis, systemic embolization; TREATMENT for venous thrombosis and/or pulmonary embolus.HIGH RISK: Target INR is 2.5-3.5 for patients with mechanical heart valves.PLATELET [id number] 16:45:00 Test Item Value Reference Range Comments PLATELET COUNT (BEAKER) (test wpkk=432) 136 K/CU MM 150-450 POTASSIUM-STAT [id number] 16:15:00 Test Item Value Reference Range Comments POTASSIUM (BEAKER) (test zblx=220) 4.9 meq/L 3.6-5.5 BLOOD GAS, [id number] 16:15:00 Test Item Value Reference Range Comments PH ARTERIAL (BEAKER) (test kgos=638) 7.39 7.35-7.45 PCO2 ARTERIAL (BEAKER) (test esij=023) 42 mmHg 35-45 PO2 ARTERIAL (BEAKER) (test byru=919) 201 mmHg 80-90 O2 SATURATION ARTERIAL (BEAKER) (test qsxy=589) 99.4 % 96.0-97.0 HCO3 ARTERIAL (BEAKER) (test olyw=520) 25 mmol/L 21-29 BASE EXCESS ARTERIAL (BEAKER) (test uzlw=232) -0.3 mmol/L -2.0-3.0 PATIENT TEMPERATURE (BEAKER) (test vmoq=8588) 36.3 C FIO2 (BEAKER) (test lyes=9836) 100.0 % SODIUM NA-STAT [id number] 16:15:00 Test Item Value Reference Range Comments SODIUM (BEAKER) (test cxvh=036) 131 meq/L 135-148 GLUCOSE-STAT [id number] 16:15:00 Test Item Value Reference Range Comments GLUCOSE RANDOM (BEAKER) (test uhmt=275) 198 mg/dL 70-110 HGB/HCT (H&H) - STAT [id number] 16:15:00 Test Item Value Reference Range Comments HEMOGLOBIN (BEAKER) (test nmct=460) 7.5 g/dL 12.0-15.0 HEMATOCRIT (BEAKER) (test cbea=114) 22.0 % 36.0-45.0 CALCIUM, [id number] 16:14:00 Test Item Value Reference Range Comments CALCIUM IONIZED (BEAKER) (test thrl=297) 0.91 mmol/L 1.12-1.27 PH, BLOOD (BEAKER) (test eaes=0999) 7.39 BLOOD GAS, [id number] 15:39:00 Test Item Value Reference Range Comments PH ARTERIAL (BEAKER) (test roxr=755) 7.44 7.35-7.45 PCO2 ARTERIAL (BEAKER) (test lugp=037) 38 mmHg 35-45 PO2 ARTERIAL (BEAKER) (test tsqc=417) 298 mmHg 80-90 O2 SATURATION ARTERIAL (BEAKER) (test pydl=376) 99.7 % 96.0-97.0 HCO3 ARTERIAL (BEAKER) (test wxpn=054) 25 mmol/L 21-29 BASE EXCESS ARTERIAL (BEAKER) (test szsp=217) 0.7 mmol/L -2.0-3.0 PATIENT TEMPERATURE (BEAKER) (test qldq=0884) 36.2 C FIO2 (BEAKER) (test kdve=5177) 70.0 % SODIUM NA-STAT [id number] 15:39:00 Test Item Value Reference Range Comments SODIUM (BEAKER) (test cizl=510) 131 meq/L 135-148 GLUCOSE-STAT [id number] 15:39:00 Test Item Value Reference Range Comments GLUCOSE RANDOM (BEAKER) (test dufp=871) 186 mg/dL 70-110 HGB/HCT (H&H) - STAT [id number] 15:39:00 Test Item Value Reference Range Comments HEMOGLOBIN (BEAKER) (test knwp=185) 7.5 g/dL 12.0-15.0 HEMATOCRIT (BEAKER) (test vzjg=689) 22.0 % 36.0-45.0 POTASSIUM-STAT [id number] 15:38:00 Test Item Value Reference Range Comments POTASSIUM (BEAKER) (test nzqp=661) 5.3 meq/L 3.6-5.5 BLOOD GAS, [id number] 15:24:00 Test Item Value Reference Range Comments PH ARTERIAL (BEAKER) (test rezs=774) 7.47 7.35-7.45 PCO2 ARTERIAL (BEAKER) (test crte=509) 37 mmHg 35-45 PO2 ARTERIAL (BEAKER) (test terp=843) 334 mmHg 80-90 O2 SATURATION ARTERIAL (BEAKER) (test ctqf=237) 99.8 % 96.0-97.0 HCO3 ARTERIAL (BEAKER) (test gitl=033) 26 mmol/L 21-29 BASE EXCESS ARTERIAL (BEAKER) (test zaza=761) 2.2 mmol/L -2.0-3.0 PATIENT TEMPERATURE (BEAKER) (test qlgv=4079) 36.2 C FIO2 (BEAKER) (test xtws=2671) 70.0 % SODIUM NA-STAT [id number] 15:24:00 Test Item Value Reference Range Comments SODIUM (BEAKER) (test qyoq=754) 130 meq/L 135-148 GLUCOSE-STAT [id number] 15:24:00 Test Item Value Reference Range Comments GLUCOSE RANDOM (BEAKER) (test jmqu=709) 189 mg/dL 70-110 HGB/HCT (H&H) - STAT [id number] 15:24:00 Test Item Value Reference Range Comments HEMOGLOBIN (BEAKER) (test hwzb=117) 6.7 g/dL 12.0-15.0 HEMATOCRIT (BEAKER) (test vbcc=095) 20.0 % 36.0-45.0 POTASSIUM-STAT [id number] 15:23:00 Test Item Value Reference Range Comments POTASSIUM (BEAKER) (test qfnc=177) 5.4 meq/L 3.6-5.5 BLOOD GAS, [id number] 15:07:00 Test Item Value Reference Range Comments PH ARTERIAL (BEAKER) (test zpih=522) 7.43 7.35-7.45 PCO2 ARTERIAL (BEAKER) (test cboo=690) 41 mmHg 35-45 PO2 ARTERIAL (BEAKER) (test nnwe=098) 365 mmHg 80-90 O2 SATURATION ARTERIAL (BEAKER) (test amcb=304) 99.8 % 96.0-97.0 HCO3 ARTERIAL (BEAKER) (test nkbz=549) 27 mmol/L 21-29 BASE EXCESS ARTERIAL (BEAKER) (test rspl=807) 1.9 mmol/L -2.0-3.0 PATIENT TEMPERATURE (BEAKER) (test epeb=9762) 35.8 C FIO2 (BEAKER) (test xbho=6786) 70.0 % SODIUM NA-STAT [id number] 15:07:00 Test Item Value Reference Range Comments SODIUM (BEAKER) (test purv=274) 129 meq/L 135-148 GLUCOSE-STAT [id number] 15:07:00 Test Item Value Reference Range Comments GLUCOSE RANDOM (BEAKER) (test bify=569) 172 mg/dL 70-110 HGB/HCT (H&H) - STAT [id number] 15:07:00 Test Item Value Reference Range Comments HEMOGLOBIN (BEAKER) (test auwy=834) 7.1 g/dL 12.0-15.0 HEMATOCRIT (BEAKER) (test dxfj=018) 21.0 % 36.0-45.0 POTASSIUM-STAT [id number] 15:04:00 Test Item Value Reference Range Comments POTASSIUM (BEAKER) (test pezj=414) 5.0 meq/L 3.6-5.5 BLOOD GAS, [id number] 14:21:00 Test Item Value Reference Range Comments PH ARTERIAL (BEAKER) (test kahw=710) 7.43 7.35-7.45 PCO2 ARTERIAL (BEAKER) (test etaj=261) 38 mmHg 35-45 PO2 ARTERIAL (BEAKER) (test touc=244) 360 mmHg 80-90 O2 SATURATION ARTERIAL (BEAKER) (test exij=516) 99.8 % 96.0-97.0 HCO3 ARTERIAL (BEAKER) (test vmtx=886) 27 mmol/L 21-29 BASE EXCESS ARTERIAL (BEAKER) (test elqi=031) 0.3 mmol/L -2.0-3.0 PATIENT TEMPERATURE (BEAKER) (test hwdt=6709) 28.9 C FIO2 (BEAKER) (test ttii=9052) 70.0 % SODIUM NA-STAT [id number] 14:21:00 Test Item Value Reference Range Comments SODIUM (BEAKER) (test mzys=261) 133 meq/L 135-148 GLUCOSE-STAT [id number] 14:21:00 Test Item Value Reference Range Comments GLUCOSE RANDOM (BEAKER) (test vgsm=274) 160 mg/dL 70-110 HGB/HCT (H&H) - STAT [id number] 14:21:00 Test Item Value Reference Range Comments HEMOGLOBIN (BEAKER) (test dlch=488) 7.5 g/dL 12.0-15.0 HEMATOCRIT (BEAKER) (test ermz=497) 22.0 % 36.0-45.0 POTASSIUM-STAT [id number] 14:20:00 Test Item Value Reference Range Comments POTASSIUM (BEAKER) (test gpae=203) 4.7 meq/L 3.6-5.5 BLOOD GAS, [id number] 13:58:00 Test Item Value Reference Range Comments PH ARTERIAL (BEAKER) (test bdna=257) 7.43 7.35-7.45 PCO2 ARTERIAL (BEAKER) (test tmjl=318) 37 mmHg 35-45 PO2 ARTERIAL (BEAKER) (test kgzp=824) 448 mmHg 80-90 O2 SATURATION ARTERIAL (BEAKER) (test afrq=774) 99.9 % 96.0-97.0 HCO3 ARTERIAL (BEAKER) (test dwdc=144) 26 mmol/L 21-29 BASE EXCESS ARTERIAL (BEAKER) (test fewz=320) -0.1 mmol/L -2.0-3.0 PATIENT TEMPERATURE (BEAKER) (test dykz=2551) 29.2 C FIO2 (BEAKER) (test qzfl=5677) 80.0 % SODIUM NA-STAT [id number] 13:58:00 Test Item Value Reference Range Comments SODIUM (BEAKER) (test wmnp=281) 132 meq/L 135-148 GLUCOSE-STAT [id number] 13:58:00 Test Item Value Reference Range Comments GLUCOSE RANDOM (BEAKER) (test wmab=360) 166 mg/dL 70-110 HGB/HCT (H&H) - STAT [id number] 13:58:00 Test Item Value Reference Range Comments HEMOGLOBIN (BEAKER) (test eglv=268) 7.5 g/dL 12.0-15.0 HEMATOCRIT (BEAKER) (test qgqz=975) 22.0 % 36.0-45.0 POTASSIUM-STAT [id number] 13:57:00 Test Item Value Reference Range Comments POTASSIUM (BEAKER) (test zpub=720) 4.7 meq/L 3.6-5.5 BLOOD GAS, [id number] 13:35:00 Test Item Value Reference Range Comments PH ARTERIAL (BEAKER) (test eaqv=905) 7.51 7.35-7.45 PCO2 ARTERIAL (BEAKER) (test nmnm=551) 33 mmHg 35-45 PO2 ARTERIAL (BEAKER) (test qwam=947) 453 mmHg 80-90 O2 SATURATION ARTERIAL (BEAKER) (test aedp=901) 99.9 % 96.0-97.0 HCO3 ARTERIAL (BEAKER) (test khxy=036) 28 mmol/L 21-29 BASE EXCESS ARTERIAL (BEAKER) (test zfwq=917) 2.7 mmol/L -2.0-3.0 PATIENT TEMPERATURE (BEAKER) (test tmcr=5465) 29.2 C FIO2 (BEAKER) (test oude=7045) 80.0 % GLUCOSE-STAT [id number] 13:35:00 Test Item Value Reference Range Comments GLUCOSE RANDOM (BEAKER) (test uwel=029) 130 mg/dL 70-110 HGB/HCT (H&H) - STAT [id number] 13:35:00 Test Item Value Reference Range Comments HEMOGLOBIN (BEAKER) (test ovbv=036) 6.7 g/dL 12.0-15.0 HEMATOCRIT (BEAKER) (test uckt=668) 20.0 % 36.0-45.0 SODIUM NA-STAT [id number] 13:35:00 Test Item Value Reference Range Comments SODIUM (BEAKER) (test lgpv=178) 133 meq/L 135-148 POTASSIUM-STAT [id number] 13:34:00 Test Item Value Reference Range Comments POTASSIUM (BEAKER) (test frrc=142) 4.2 meq/L 3.6-5.5 BLOOD GAS, [id number] 13:16:00 Test Item Value Reference Range Comments PH ARTERIAL (BEAKER) (test owoo=538) 7.42 7.35-7.45 PCO2 ARTERIAL (BEAKER) (test dyhb=470) 34 mmHg 35-45 PO2 ARTERIAL (BEAKER) (test goqj=288) 375 mmHg 80-90 O2 SATURATION ARTERIAL (BEAKER) (test btnu=060) 99.8 % 96.0-97.0 HCO3 ARTERIAL (BEAKER) (test oomj=229) 23 mmol/L 21-29 BASE EXCESS ARTERIAL (BEAKER) (test wixx=868) -2.5 mmol/L -2.0-3.0 PATIENT TEMPERATURE (BEAKER) (test ndcv=2869) 31.5 C FIO2 (BEAKER) (test jsnu=9175) 80.0 % SODIUM NA-STAT [id number] 13:16:00 Test Item Value Reference Range Comments SODIUM (BEAKER) (test wbrn=540) 133 meq/L 135-148 HGB/HCT (H&H) - STAT [id number] 13:16:00 Test Item Value Reference Range Comments HEMOGLOBIN (BEAKER) (test otdk=645) 6.3 g/dL 12.0-15.0 HEMATOCRIT (BEAKER) (test plbe=153) 19.0 % 36.0-45.0 CALCIUM, [id number] 13:15:00 Test Item Value Reference Range Comments CALCIUM IONIZED (BEAKER) (test ycia=195) 0.98 mmol/L 1.12-1.27 PH, BLOOD (BEAKER) (test kgrz=7186) 7.34 BLOOD GAS, [id number] 13:15:00 Test Item Value Reference Range Comments PH VENOUS (BEAKER) (test rsox=605) 7.39 7.32-7.42 PCO2 VENOUS (BEAKER) (test pblc=117) 38 mmHg 41-51 PO2 VENOUS (BEAKER) (test rvvo=474) 43 mmHg 25-40 O2 SATURATION VENOUS (BEAKER) (test hqez=396) 90.0 % 40.0-70.0 HCO3 VENOUS (BEAKER) (test yrto=152) 24 mmol/L 21-29 BASE EXCESS VENOUS (BEAKER) (test xyle=857) -2.1 mmol/L -2.0-3.0 PATIENT TEMPERATURE (BEAKER) (test hagv=5797) 31.5 C FIO2 (BEAKER) (test fsps=7491) 80.0 % GLUCOSE-STAT [id number] 13:14:00 Test Item Value Reference Range Comments GLUCOSE RANDOM (BEAKER) (test wklg=458) 92 mg/dL 70-110 POTASSIUM-STAT [id number] 13:14:00 Test Item Value Reference Range Comments POTASSIUM (BEAKER) (test zenl=771) 3.9 meq/L 3.6-5.5 BLOOD GAS, [id number] 10:54:00 Test Item Value Reference Range Comments PH ARTERIAL (BEAKER) (test urwo=780) 7.41 7.35-7.45 PCO2 ARTERIAL (BEAKER) (test jedq=885) 39 mmHg 35-45 PO2 ARTERIAL (BEAKER) (test spga=918) 254 mmHg 80-90 O2 SATURATION ARTERIAL (BEAKER) (test fvce=126) 99.6 % 96.0-97.0 HCO3 ARTERIAL (BEAKER) (test pjpi=297) 25 mmol/L 21-29 BASE EXCESS ARTERIAL (BEAKER) (test clmp=802) -0.3 mmol/L -2.0-3.0 PATIENT TEMPERATURE (BEAKER) (test axdo=6246) 35.4 C FIO2 (BEAKER) (test tyfx=9883) 100.0 % HGB/HCT (H&H) - STAT [id number] 10:54:00 Test Item Value Reference Range Comments HEMOGLOBIN (BEAKER) (test pjpd=178) 9.3 g/dL 12.0-15.0 HEMATOCRIT (BEAKER) (test onho=818) 27.0 % 36.0-45.0 SODIUM NA-STAT [id number] 10:54:00 Test Item Value Reference Range Comments SODIUM (BEAKER) (test khfs=052) 132 meq/L 135-148 GLUCOSE-STAT [id number] 10:52:00 Test Item Value Reference Range Comments GLUCOSE RANDOM (BEAKER) (test ajbm=684) 94 mg/dL 70-110 POTASSIUM-STAT [id number] 10:52:00 Test Item Value Reference Range Comments POTASSIUM (BEAKER) (test fdyf=473) 4.0 meq/L 3.6-5.5 HEMOGLOBIN [id number] 09:50:00 Test Item Value Reference Range Comments HEMOGLOBIN A1C (BEAKER) (test jkun=519) 10.6 % 4.3-6.1 PLATELET AGGREGATION: FUNCTION [id number] 08:27:00 Test Item Value Reference Range Comments WEAK ADP RESULT(BEAKER) (test 63 % 60-91 kvel=1585) PLATELET FUNCTION SCREEN 60-100% indicates normal INTERP (BEAKER) (test platelet function jxrb=4049) [id number] (BEAKER) Toshia Post MD (electronic (test faxj=0748) signature) PLATELET COUNT AGG (BEAKER) 198 K/CU MM 150-450 (test yvca=2913) for patients on clopidogrel in past two weeksPOCT-GLUCOSE [id number] 08:11: 00 Test Item Value Reference Range Comments POC-GLUCOSE METER (BEAKER) 116 mg/dL 70-110 TESTED AT [facility] [address] [facility] (test lcvy=3204) [facility] [address] [id number] 07:10:00 Test Item Value Reference Range Comments PHOSPHORUS (BEAKER) (test sglv=935) 4.5 mg/dL 2.3-4.7 [id number] 07:10:00 Test Item Value Reference Range Comments MAGNESIUM (BEAKER) (test acgl=494) 2.1 mg/dL 1.6-2.6 BASIC METABOLIC [id number] 07:10:00 Test Item Value Reference Range Comments SODIUM (BEAKER) (test 135 meq/L 136-145 vnya=570) POTASSIUM (BEAKER) (test 4.4 meq/L 3.5-5.1 ynmp=403) CHLORIDE (BEAKER) (test 106 meq/L 98-107 jebm=457) CO2 (BEAKER) (test 23 meq/L 22-29 demj=344) BLOOD UREA NITROGEN 40 mg/dL 7-21 (BEAKER) (test vlxn=228) CREATININE (BEAKER) (test 1.67 mg/dL 0.57-1.25 idys=675) GLUCOSE RANDOM (BEAKER) 107 mg/dL 70-105 (test istx=886) CALCIUM (BEAKER) (test 8.3 mg/dL 8.4-10.2 zkjd=201) EGFR (BEAKER) (test 31 mL/min/1.73 sq m ESTIMATED GFR IS NOT sjtm=3465) ACCURATE CREATININE CLEARANCE IN PREDICTING GLOMERULAR FILTRATION RATE. ESTIMATED GFR IS NOT APPLICABLE FOR DIALYSIS PATIENTS. B-TYPE NATRIURETIC FACTOR (BNP)2017-05-20 06:56:00 Test Item Value Reference Range Comments B-TYPE NATRIURETIC PEPTIDE (BEAKER) (test 552 pg/mL 0-100 jdph=151) CBC W/PLT COUNT & AUTO [id number] 06:46:00 Test Item Value Reference Range Comments WHITE BLOOD CELL COUNT (BEAKER) (test vmyw=679) 6.2 K/ L 3.5-10.5 RED BLOOD CELL COUNT (BEAKER) (test kbyk=977) 3.56 M/ L 3.93-5.22 HEMOGLOBIN (BEAKER) (test kfek=000) 9.1 GM/DL 11.2-15.7 HEMATOCRIT (BEAKER) (test xxsn=601) 29.5 % 34.1-44.9 MEAN CORPUSCULAR VOLUME (BEAKER) (test tfxs=631) 82.9 fL 79.4-94.8 MEAN CORPUSCULAR HEMOGLOBIN (BEAKER) (test 25.6 pg 25.6-32.2 ufwg=735) MEAN CORPUSCULAR HEMOGLOBIN CONC (BEAKER) (test 30.8 GM/DL 32.2-35.5 zthb=612) RED CELL DISTRIBUTION WIDTH (BEAKER) (test 14.4 % 11.7-14.4 xahv=068) PLATELET COUNT (BEAKER) (test zvhy=046) 222 K/CU MM 150-450 MEAN PLATELET VOLUME (BEAKER) (test vswh=126) 10.5 fL 9.4-12.3 NUCLEATED RED BLOOD CELLS (BEAKER) (test 0 /100 WBC 0-0 qanw=128) NEUTROPHILS RELATIVE PERCENT (BEAKER) (test 47 % tscs=906) LYMPHOCYTES RELATIVE PERCENT (BEAKER) (test 39 % rnig=114) MONOCYTES RELATIVE PERCENT (BEAKER) (test 8 % ezjn=203) EOSINOPHILS RELATIVE PERCENT (BEAKER) (test 5 % zdiu=533) BASOPHILS RELATIVE PERCENT (BEAKER) (test 1 % ughh=750) NEUTROPHILS ABSOLUTE COUNT (BEAKER) (test 2.90 K/ L 1.56-6.13 kqas=351) LYMPHOCYTES ABSOLUTE COUNT (BEAKER) (test 2.37 K/ L 1.18-3.74 eeeg=031) MONOCYTES ABSOLUTE COUNT (BEAKER) (test 0.49 K/ L 0.24-0.36 lsgd=057) EOSINOPHILS ABSOLUTE COUNT (BEAKER) (test 0.30 K/ L 0.04-0.36 ktef=303) BASOPHILS ABSOLUTE COUNT (BEAKER) (test 0.08 K/ L 0.01-0.08 xklx=774) IMMATURE GRANULOCYTES-RELATIVE PERCENT (BEAKER) 0 % 0-1 (test lurm=1097) CALCIUM, [id number] 06:40:00 Test Item Value Reference Range Comments CALCIUM IONIZED (BEAKER) (test icbt=193) 1.06 mmol/L 1.12-1.27 PH, BLOOD (BEAKER) (test inor=8506) 7.39 POCT-GLUCOSE [id number] 23:22:00 Test Item Value Reference Range Comments POC-GLUCOSE METER (BEAKER) 165 mg/dL 70-110 TESTED AT [facility] [address] [facility] (test clep=3987) [facility] [address] URINE PROTEIN ELECTROPHORESIS, [id number] 18:02:00 Test Item Value Reference Range Comments PROTEIN, URINE (BEAKER) (test 305 mg/dL 0-14 ijox=1264) ALBUMIN URINE ELP (BEAKER) 70.9 % (test szyq=0023) GAMMA GLOBULIN URINE (BEAKER) 29.1 % (test fiju=1953) UPEP, ID-438 (BEAKER) (test No monoclonal bands detected. bzxv=8649) [id number] (BEAKER) Rocio Galindo MD (test yefh=4115) (electronic signature) PROTEIN ELECTROPHORESIS, [id number] 17:57:00 Test Item Value Reference Range Comments ALBUMIN FRACTION (BEAKER) 2.5 g/dL 3.5-5.5 (test uknu=253) ALPHA 1 FRACTION (BEAKER) 0.3 g/dL 0.2-0.4 (test qpad=752) ALPHA 2 FRACTION (BEAKER) 0.9 g/dL 0.5-0.9 (test cngu=378) BETA FRACTION (BEAKER) (test 0.8 g/dL 0.6-1.1 bpek=861) GAMMA GLOBULIN FRACTION 1.0 g/dL 0.7-1.7 (BEAKER) (test sexm=548) INTERPRETATION-119 (BEAKER) Decreased albumin with (test qhqm=8704) concurrent relative increases in all globulin fractions. No monoclonal bands detected. [id number] (BEAKER) Rocio Galindo MD (test ilbu=5026) (electronic signature) PROTEIN TOTAL SERUM, SPEP 5.5 gm/dL 6.0-8.3 (BEAKER) (test xink=4483) POCT-GLUCOSE [id number] 17:15:00 Test Item Value Reference Range Comments POC-GLUCOSE METER (BEAKER) 209 mg/dL 70-110 TESTED AT [facility] [address] [facility] (test oaxb=1369) [facility] [address] BLOOD GAS, [id number] 15:54:00 Test Item Value Reference Range Comments PH ARTERIAL (BEAKER) (test fyyx=337) 7.45 7.35-7.45 PCO2 ARTERIAL (BEAKER) (test xpvq=300) 38 mmHg 35-45 PO2 ARTERIAL (BEAKER) (test hkxx=434) 69 mmHg 80-90 O2 SATURATION ARTERIAL (BEAKER) (test habl=776) 94.5 % 96.0-97.0 HCO3 ARTERIAL (BEAKER) (test pkfa=521) 25 mmol/L 21-29 BASE EXCESS ARTERIAL (BEAKER) (test hnxw=686) 1.3 mmol/L -2.0-3.0 PATIENT TEMPERATURE (BEAKER) (test ttdj=1334) 37.0 C FIO2 (BEAKER) (test bobt=6229) 36.0 % RAD, CHEST, 1 VIEW, NON [id number] 14:07:00Reason for exam:->SOB, hypoxemiaShould this be performed [...] Eder Cespedesort Verified Date/Time: 2017 14:07:07 Reading Location:[facility] B1 [id number] Consult Reading Room POCT- GLUCOSE [id number] 11:26:00 Test Item Value Reference Range Comments POC-GLUCOSE METER (BEAKER) 262 mg/dL 70-110 TESTED AT [place] [id number] [facility] (test vvsb=1539) [facility] [address] POCT-GLUCOSE [id number] 07:37:00 Test Item Value Reference Range Comments POC-GLUCOSE METER (BEAKER) 170 mg/dL 70-110 TESTED AT [address] (test kcxy=6727) [facility] [address] CALCIUM, [id number] 06:06:00 Test Item Value Reference Range Comments CALCIUM IONIZED (BEAKER) (test psyz=544) 1.05 mmol/L 1.12-1.27 PH, BLOOD (BEAKER) (test fooe=5095) 7.41 [id number] 05:38:00 Test Item Value Reference Range Comments PHOSPHORUS (BEAKER) (test kiuy=619) 3.9 mg/dL 2.3-4.7 [id number] 05:38:00 Test Item Value Reference Range Comments MAGNESIUM (BEAKER) (test gefc=375) 2.2 mg/dL 1.6-2.6 BASIC METABOLIC [id number] 05:38:00 Test Item Value Reference Range Comments SODIUM (BEAKER) (test 135 meq/L 136-145 lvij=518) POTASSIUM (BEAKER) (test 4.5 meq/L 3.5-5.1 owiu=221) CHLORIDE (BEAKER) (test 105 meq/L 98-107 gdmv=401) CO2 (BEAKER) (test 24 meq/L 22-29 dbnp=019) BLOOD UREA NITROGEN 41 mg/dL 7-21 (BEAKER) (test qbyo=835) CREATININE (BEAKER) (test 1.74 mg/dL 0.57-1.25 imuz=377) GLUCOSE RANDOM (BEAKER) 174 mg/dL 70-105 (test vmmo=667) CALCIUM (BEAKER) (test 8.4 mg/dL 8.4-10.2 dvas=078) EGFR (BEAKER) (test 30 mL/min/1.73 sq m ESTIMATED GFR IS NOT gtce=7217) ACCURATE CREATININE CLEARANCE IN PREDICTING GLOMERULAR FILTRATION RATE. ESTIMATED GFR IS NOT APPLICABLE FOR DIALYSIS PATIENTS. CBC W/PLT COUNT & AUTO [id number] 05:09:00 Test Item Value Reference Range Comments WHITE BLOOD CELL COUNT (BEAKER) (test itez=842) 8.5 K/ L 3.5-10.5 RED BLOOD CELL COUNT (BEAKER) (test pmpo=175) 3.54 M/ L 3.93-5.22 HEMOGLOBIN (BEAKER) (test sshc=860) 9.1 GM/DL 11.2-15.7 HEMATOCRIT (BEAKER) (test opbp=320) 29.1 % 34.1-44.9 MEAN CORPUSCULAR VOLUME (BEAKER) (test rlse=912) 82.2 fL 79.4-94.8 MEAN CORPUSCULAR HEMOGLOBIN (BEAKER) (test 25.7 pg 25.6-32.2 xswt=418) MEAN CORPUSCULAR HEMOGLOBIN CONC (BEAKER) (test 31.3 GM/DL 32.2-35.5 wtag=386) RED CELL DISTRIBUTION WIDTH (BEAKER) (test 14.5 % 11.7-14.4 cewj=480) PLATELET COUNT (BEAKER) (test ywzx=395) 201 K/CU MM 150-450 MEAN PLATELET VOLUME (BEAKER) (test tief=576) 10.7 fL 9.4-12.3 NUCLEATED RED BLOOD CELLS (BEAKER) (test 0 /100 WBC 0-0 ikyg=043) NEUTROPHILS RELATIVE PERCENT (BEAKER) (test 56 % raxo=651) LYMPHOCYTES RELATIVE PERCENT (BEAKER) (test 32 % icit=595) MONOCYTES RELATIVE PERCENT (BEAKER) (test 7 % vvzk=850) EOSINOPHILS RELATIVE PERCENT (BEAKER) (test 4 % nxta=979) BASOPHILS RELATIVE PERCENT (BEAKER) (test 1 % tfkw=271) NEUTROPHILS ABSOLUTE COUNT (BEAKER) (test 4.80 K/ L 1.56-6.13 imyg=609) LYMPHOCYTES ABSOLUTE COUNT (BEAKER) (test 2.73 K/ L 1.18-3.74 pyen=412) MONOCYTES ABSOLUTE COUNT (BEAKER) (test 0.62 K/ L 0.24-0.36 nvjj=027) EOSINOPHILS ABSOLUTE COUNT (BEAKER) (test 0.30 K/ L 0.04-0.36 obkk=010) BASOPHILS ABSOLUTE COUNT (BEAKER) (test 0.06 K/ L 0.01-0.08 fpuz=252) IMMATURE GRANULOCYTES-RELATIVE PERCENT (BEAKER) 0 % 0-1 (test cydi=4817) POCT-GLUCOSE [id number] 22:08:00 Test Item Value Reference Range Comments POC-GLUCOSE METER (BEAKER) 263 mg/dL 70-110 TESTED AT [address] (test trmf=8062) [place] [id number] POCT-GLUCOSE [id number] 17:20:00 Test Item Value Reference Range Comments POC-GLUCOSE METER (BEAKER) 233 mg/dL 70-110 TESTED AT [address] (test neql=4002) [place] [id number] POCT-GLUCOSE [id number] 08:28:00 Test Item Value Reference Range Comments POC-GLUCOSE METER (BEAKER) 154 mg/dL 70-110 TESTED AT [address] (test zdtx=5025) [place] [id number] BASIC METABOLIC [id number] 06:41:00 Test Item Value Reference Range Comments SODIUM (BEAKER) (test 135 meq/L 136-145 rxij=860) POTASSIUM (BEAKER) (test 4.6 meq/L 3.5-5.1 ubcs=489) CHLORIDE (BEAKER) (test 104 meq/L 98-107 vwea=395) CO2 (BEAKER) (test 23 meq/L 22-29 epor=691) BLOOD UREA NITROGEN 39 mg/dL 7-21 (BEAKER) (test vdsf=441) CREATININE (BEAKER) (test 1.77 mg/dL 0.57-1.25 xzte=715) GLUCOSE RANDOM (BEAKER) 173 mg/dL 70-105 (test amys=074) CALCIUM (BEAKER) (test 8.6 mg/dL 8.4-10.2 aqaf=276) EGFR (BEAKER) (test 29 mL/min/1.73 sq m ESTIMATED GFR IS NOT tzqb=8582) ACCURATE CREATININE CLEARANCE IN PREDICTING GLOMERULAR FILTRATION RATE. ESTIMATED GFR IS NOT APPLICABLE FOR DIALYSIS PATIENTS. [id number] 06:35:00 Test Item Value Reference Range Comments PHOSPHORUS (BEAKER) (test ikur=463) 4.1 mg/dL 2.3-4.7 [id number] 06:35:00 Test Item Value Reference Range Comments MAGNESIUM (BEAKER) (test ddwx=371) 2.1 mg/dL 1.6-2.6 CALCIUM, [id number] 06:22:00 Test Item Value Reference Range Comments CALCIUM IONIZED (BEAKER) (test thac=814) 1.10 mmol/L 1.12-1.27 PH, BLOOD (BEAKER) (test gwoo=9234) 7.38 CBC W/PLT COUNT & AUTO [id number] 06:04:00 Test Item Value Reference Range Comments WHITE BLOOD CELL COUNT (BEAKER) (test kohd=969) 9.3 K/ L 3.5-10.5 RED BLOOD CELL COUNT (BEAKER) (test tnxt=148) 4.15 M/ L 3.93-5.22 HEMOGLOBIN (BEAKER) (test syvt=312) 10.6 GM/DL 11.2-15.7 HEMATOCRIT (BEAKER) (test yrio=502) 34.2 % 34.1-44.9 MEAN CORPUSCULAR VOLUME (BEAKER) (test jhxv=322) 82.4 fL 79.4-94.8 MEAN CORPUSCULAR HEMOGLOBIN (BEAKER) (test 25.5 pg 25.6-32.2 irpn=397) MEAN CORPUSCULAR HEMOGLOBIN CONC (BEAKER) (test 31.0 GM/DL 32.2-35.5 bopk=243) RED CELL DISTRIBUTION WIDTH (BEAKER) (test 14.6 % 11.7-14.4 rsmu=367) PLATELET COUNT (BEAKER) (test zuyx=573) 183 K/CU MM 150-450 MEAN PLATELET VOLUME (BEAKER) (test cyqo=117) 11.0 fL 9.4-12.3 NUCLEATED RED BLOOD CELLS (BEAKER) (test 0 /100 WBC 0-0 ncjl=173) NEUTROPHILS RELATIVE PERCENT (BEAKER) (test 66 % stce=695) LYMPHOCYTES RELATIVE PERCENT (BEAKER) (test 24 % ksld=885) MONOCYTES RELATIVE PERCENT (BEAKER) (test 7 % umrf=881) EOSINOPHILS RELATIVE PERCENT (BEAKER) (test 3 % yqpj=272) BASOPHILS RELATIVE PERCENT (BEAKER) (test 1 % xmpj=169) NEUTROPHILS ABSOLUTE COUNT (BEAKER) (test 6.15 K/ L 1.56-6.13 iaav=626) LYMPHOCYTES ABSOLUTE COUNT (BEAKER) (test 2.20 K/ L 1.18-3.74 ysgr=549) MONOCYTES ABSOLUTE COUNT (BEAKER) (test 0.62 K/ L 0.24-0.36 rllp=199) EOSINOPHILS ABSOLUTE COUNT (BEAKER) (test 0.24 K/ L 0.04-0.36 crur=832) BASOPHILS ABSOLUTE COUNT (BEAKER) (test 0.06 K/ L 0.01-0.08 ktzy=346) IMMATURE GRANULOCYTES-RELATIVE PERCENT (BEAKER) 0 % 0-1 (test rrdu=2223) POCT-GLUCOSE [id number] 03:44:00 Test Item Value Reference Range Comments POC-GLUCOSE METER (BEAKER) 220 mg/dL 70-110 TESTED AT [address] (test klnt=8773) [place] [address] POCT-GLUCOSE [id number] 18:27:00 Test Item Value Reference Range Comments POC-GLUCOSE METER (BEAKER) 256 mg/dL 70-110 TESTED AT [address] (test qnnc=4616) [place] [address] POCT-GLUCOSE [id number] 15:45:00 Test Item Value Reference Range Comments POC-GLUCOSE METER (BEAKER) 278 mg/dL 70-110 TESTED AT [address] (test gurw=2513) [place] [address] POCT-GLUCOSE [id number] 13:22:00 Test Item Value Reference Range Comments POC-GLUCOSE METER (BEAKER) 278 mg/dL 70-110 TESTED AT [address] (test enuf=7549) [place] [address] PLATELET AGGREGATION: FUNCTION [id number] 13:18:00 Test Item Value Reference Range Comments WEAK ADP RESULT(BEAKER) (test 66 % 60-91 dvwv=4775) PLATELET FUNCTION SCREEN 60-100% indicates normal INTERP (BEAKER) (test platelet function dzjk=8324) [id number] (BEAKER) Rigoberto Duenas MD (electronic (test obeo=7802) signature) PLATELET COUNT AGG (BEAKER) 204 K/CU MM 150-450 (test fjaw=3076) POCT-GLUCOSE [id number] 08:27:00 Test Item Value Reference Range Comments POC-GLUCOSE METER (BEAKER) 189 mg/dL 70-110 TESTED AT [facility] [address] [facility] (test ilob=9442) [facility] [address] CALCIUM, [id number] 06:12:00 Test Item Value Reference Range Comments CALCIUM IONIZED (BEAKER) (test titm=585) 1.07 mmol/L 1.12-1.27 PH, BLOOD (BEAKER) (test five=7283) 7.36 [id number] 05:43:00 Test Item Value Reference Range Comments PHOSPHORUS (BEAKER) (test fkur=044) 3.6 mg/dL 2.3-4.7 [id number] 05:43:00 Test Item Value Reference Range Comments MAGNESIUM (BEAKER) (test qlcb=993) 2.1 mg/dL 1.6-2.6 BASIC METABOLIC [id number] 05:43:00 Test Item Value Reference Range Comments SODIUM (BEAKER) (test 137 meq/L 136-145 yfnf=170) POTASSIUM (BEAKER) (test 4.7 meq/L 3.5-5.1 ikjl=164) CHLORIDE (BEAKER) (test 107 meq/L 98-107 xjgq=769) CO2 (BEAKER) (test 24 meq/L 22-29 rgtr=765) BLOOD UREA NITROGEN 38 mg/dL 7-21 (BEAKER) (test qfwg=361) CREATININE (BEAKER) (test 1.72 mg/dL 0.57-1.25 vbpt=300) GLUCOSE RANDOM (BEAKER) 198 mg/dL 70-105 (test rczl=123) CALCIUM (BEAKER) (test 8.3 mg/dL 8.4-10.2 oekq=727) EGFR (BEAKER) (test 30 mL/min/1.73 sq m ESTIMATED GFR IS NOT xjrq=4959) ACCURATE CREATININE CLEARANCE IN PREDICTING GLOMERULAR FILTRATION RATE. ESTIMATED GFR IS NOT APPLICABLE FOR DIALYSIS PATIENTS. CBC W/PLT COUNT & AUTO [id number] 05:05:00 Test Item Value Reference Range Comments WHITE BLOOD CELL COUNT (BEAKER) (test gngh=010) 8.6 K/ L 3.5-10.5 RED BLOOD CELL COUNT (BEAKER) (test paqm=142) 4.20 M/ L 3.93-5.22 HEMOGLOBIN (BEAKER) (test nedl=958) 10.7 GM/DL 11.2-15.7 HEMATOCRIT (BEAKER) (test xaet=366) 34.7 % 34.1-44.9 MEAN CORPUSCULAR VOLUME (BEAKER) (test tbfb=318) 82.6 fL 79.4-94.8 MEAN CORPUSCULAR HEMOGLOBIN (BEAKER) (test 25.5 pg 25.6-32.2 yotq=638) MEAN CORPUSCULAR HEMOGLOBIN CONC (BEAKER) (test 30.8 GM/DL 32.2-35.5 zsra=449) RED CELL DISTRIBUTION WIDTH (BEAKER) (test 14.7 % 11.7-14.4 oyru=868) PLATELET COUNT (BEAKER) (test msdr=326) 198 K/CU MM 150-450 MEAN PLATELET VOLUME (BEAKER) (test hgdh=480) 11.1 fL 9.4-12.3 NUCLEATED RED BLOOD CELLS (BEAKER) (test 0 /100 WBC 0-0 plmv=269) NEUTROPHILS RELATIVE PERCENT (BEAKER) (test 63 % yuyd=553) LYMPHOCYTES RELATIVE PERCENT (BEAKER) (test 28 % ukis=774) MONOCYTES RELATIVE PERCENT (BEAKER) (test 6 % uwfw=612) EOSINOPHILS RELATIVE PERCENT (BEAKER) (test 3 % ljrl=852) BASOPHILS RELATIVE PERCENT (BEAKER) (test 1 % okju=111) NEUTROPHILS ABSOLUTE COUNT (BEAKER) (test 5.41 K/ L 1.56-6.13 uiaa=853) LYMPHOCYTES ABSOLUTE COUNT (BEAKER) (test 2.37 K/ L 1.18-3.74 emce=383) MONOCYTES ABSOLUTE COUNT (BEAKER) (test 0.50 K/ L 0.24-0.36 mpqy=089) EOSINOPHILS ABSOLUTE COUNT (BEAKER) (test 0.27 K/ L 0.04-0.36 gtvb=490) BASOPHILS ABSOLUTE COUNT (BEAKER) (test 0.06 K/ L 0.01-0.08 yjrk=012) IMMATURE GRANULOCYTES-RELATIVE PERCENT (BEAKER) 0 % 0-1 (test avay=2279) POCT-GLUCOSE [id number] 21:32:00 Test Item Value Reference Range Comments POC-GLUCOSE METER (BEAKER) 176 mg/dL 70-110 TESTED AT [address] (test txgu=9997) [place] [address] POCT-GLUCOSE [id number] 20:27:00 Test Item Value Reference Range Comments POC-GLUCOSE METER (BEAKER) 161 mg/dL 70-110 TESTED AT [address] (test osvv=6403) [place] [address] POCT-GLUCOSE [id number] 18:23:00 Test Item Value Reference Range Comments POC-GLUCOSE METER (BEAKER) 185 mg/dL 70-110 TESTED AT [address] (test dqjr=7253) [place] [address] POCT-GLUCOSE [id number] 13:26:00 Test Item Value Reference Range Comments POC-GLUCOSE METER (BEAKER) 282 mg/dL 70-110 TESTED AT [address] (test hapn=7408) [place] [address] URINE [id number] 10:12:00 Test Item Value Reference Range Comments CULTURE (BEAKER) (test ymsf=1119) >100,000 col/mL skin todd POCT-GLUCOSE [id number] 09:01:00 Test Item Value Reference Range Comments POC-GLUCOSE METER (BEAKER) 268 mg/dL 70-110 TESTED AT [address] (test qaqq=9551) [place] [address] CALCIUM, [id number] 05:39:00 Test Item Value Reference Range Comments CALCIUM IONIZED (BEAKER) (test rlcp=162) 0.84 mmol/L 1.12-1.27 PH, BLOOD (BEAKER) (test gjyr=4911) 7.35 BASIC METABOLIC [id number] 05:07:00 Test Item Value Reference Range Comments SODIUM (BEAKER) (test 135 meq/L 136-145 wqqa=883) POTASSIUM (BEAKER) (test 4.9 meq/L 3.5-5.1 drmy=741) CHLORIDE (BEAKER) (test 106 meq/L 98-107 xhcz=506) CO2 (BEAKER) (test 22 meq/L 22-29 rbsn=511) BLOOD UREA NITROGEN 43 mg/dL 7-21 (BEAKER) (test xnkn=270) CREATININE (BEAKER) (test 2.00 mg/dL 0.57-1.25 hkgr=055) GLUCOSE RANDOM (BEAKER) 161 mg/dL 70-105 (test uqnf=565) CALCIUM (BEAKER) (test 8.2 mg/dL 8.4-10.2 cpzz=344) EGFR (BEAKER) (test 25 mL/min/1.73 sq m ESTIMATED GFR IS NOT mzcc=2045) ACCURATE CREATININE CLEARANCE IN PREDICTING GLOMERULAR FILTRATION RATE. ESTIMATED GFR IS NOT APPLICABLE FOR DIALYSIS PATIENTS. [id number] 05:06:00 Test Item Value Reference Range Comments PHOSPHORUS (BEAKER) (test qwsp=971) 3.2 mg/dL 2.3-4.7 [id number] 05:06:00 Test Item Value Reference Range Comments MAGNESIUM (BEAKER) (test pcpx=009) 2.3 mg/dL 1.6-2.6 CBC W/PLT COUNT & AUTO [id number] 04:42:00 Test Item Value Reference Range Comments WHITE BLOOD CELL COUNT (BEAKER) (test zbxv=112) 9.5 K/ L 3.5-10.5 RED BLOOD CELL COUNT (BEAKER) (test jvcq=933) 4.17 M/ L 3.93-5.22 HEMOGLOBIN (BEAKER) (test sowh=725) 10.5 GM/DL 11.2-15.7 HEMATOCRIT (BEAKER) (test sxvw=125) 34.2 % 34.1-44.9 MEAN CORPUSCULAR VOLUME (BEAKER) (test qjxa=829) 82.0 fL 79.4-94.8 MEAN CORPUSCULAR HEMOGLOBIN (BEAKER) (test 25.2 pg 25.6-32.2 bxfk=715) MEAN CORPUSCULAR HEMOGLOBIN CONC (BEAKER) (test 30.7 GM/DL 32.2-35.5 nmep=113) RED CELL DISTRIBUTION WIDTH (BEAKER) (test 14.6 % 11.7-14.4 qiyp=023) PLATELET COUNT (BEAKER) (test gsdn=782) 177 K/CU MM 150-450 MEAN PLATELET VOLUME (BEAKER) (test iyqn=318) 11.1 fL 9.4-12.3 NUCLEATED RED BLOOD CELLS (BEAKER) (test 0 /100 WBC 0-0 qbou=889) NEUTROPHILS RELATIVE PERCENT (BEAKER) (test 55 % gtdn=223) LYMPHOCYTES RELATIVE PERCENT (BEAKER) (test 36 % phxr=311) MONOCYTES RELATIVE PERCENT (BEAKER) (test 6 % wbee=540) EOSINOPHILS RELATIVE PERCENT (BEAKER) (test 2 % mcwh=475) BASOPHILS RELATIVE PERCENT (BEAKER) (test 1 % ovly=056) NEUTROPHILS ABSOLUTE COUNT (BEAKER) (test 5.20 K/ L 1.56-6.13 moaq=028) LYMPHOCYTES ABSOLUTE COUNT (BEAKER) (test 3.37 K/ L 1.18-3.74 hydo=742) MONOCYTES ABSOLUTE COUNT (BEAKER) (test 0.59 K/ L 0.24-0.36 cyhc=460) EOSINOPHILS ABSOLUTE COUNT (BEAKER) (test 0.21 K/ L 0.04-0.36 ilbq=105) BASOPHILS ABSOLUTE COUNT (BEAKER) (test 0.07 K/ L 0.01-0.08 mgjp=257) IMMATURE GRANULOCYTES-RELATIVE PERCENT (BEAKER) 0 % 0-1 (test hjfa=5063) RHEUMATOID FACTOR AB, REFLEX TO [id number] 01:52:00 Test Item Value Reference Range Comments RHEUMATOID FACTOR (BEAKER) (test gpto=782) Negative POCT-GLUCOSE [id number] 21:57:00 Test Item Value Reference Range Comments POC-GLUCOSE METER (BEAKER) 105 mg/dL 70-110 TESTED AT [place] [address] [address] (test saxa=2915) [facility] [address] POCT-GLUCOSE [id number] 18:11:00 Test Item Value Reference Range Comments POC-GLUCOSE METER (BEAKER) 312 mg/dL 70-110 Notified GUILHERME PIERRE/TESTED AT [facility] (test rpou=9275) [facility] [address] PET, CARDIAC PERFUSION MULTIPLE STUDIES, REST AND [id number] 16:28: 00Reason for exam:->pvcs, known cadFINAL REPORT PROCEDURE: Rest/Stress MYOCARDIAL PERFUSION PET with regadenoson\XA9\ CPT CODE: 39993 INDICATION: Defined extent and severity of known [...] 23% . LVEF at stress is 36%. Utility Operator Yarn CT images revealed a right pleural effusion [...] pleural and pericardial effusions. 7. No previous [facility] study for comparison. NONINVASIVE RISK STRATIFICATION: The above findings are considered high risk (>3% annual mortality rate) based on the following criteria: - Severe resting left ventricular dysfunction (LVEF 35%)- Stress-induced large perfusion defect ( particularly if anterior)(JACC. 2012;59(9):857-81.) Signed: Last Lopez MDReport Verified Date/Time: 05/15/2017 16:28:12 Reading Location: [address] [facility] Med ReadingRoom RAD, CHEST, 1 VIEW, NON [id number] 15:56:00Reason for exam:->SOBShould this be performed at the bedside?->YesFINAL REPORT Comparison: 05/14/2017 TECHNIQUE: Single view of the chest FINDINGS: There is a small right pleural effusion with nonspecific airspace disease. This is unchanged. Left lung is grossly clear. Cardiac silhouette is enlarged. IMPRESSION: 1. No acute cardiopulmonary disease. Signed : Sixto Monk MDReport Verified Date/Time: 05/15/2017 15:56:39 Reading Location : [facility] Radiology Reading Room POCT-GLUCOSE [id number] 12:54:00 Test Item Value Reference Range Comments POC-GLUCOSE METER (BEAKER) 308 mg/dL 70-110 Notified GUILHERME PIERRE/TESTED AT [facility] (test sopw=6252) [address] [facility] [address] U/S, RENAL WITH [id number] 11:04:00Reason for exam:->tracy, htnShould this be performed [...] Verified Date/Time: 05/15/2017 11:04:01 Reading Location : [address] Ultrasound Reading Room ANA TITER AND [id number] 10:57:00 Test Item Value Reference Range Comments ROGER TITER (BEAKER) (test xvxc=1116) :160 ROGRE PATTERN (BEAKER) (test unor=3707) Speckled ANTI-NUCLEAR ANTIBODY (ROGER)2017-05-15 10:56:00 Test Item Value Reference Range Comments ANTI-NUCLEAR ANTIBODY (ROGER) (BEAKER) (test Positive Negative qcbb=351) CALCIUM, [id number] 06:00:00 Test Item Value Reference Range Comments CALCIUM IONIZED (BEAKER) (test cdmi=373) 1.07 mmol/L 1.12-1.27 PH, BLOOD (BEAKER) (test quxd=3881) 7.28 HEPATITIS PANEL, [id number] 05:01:00 Test Item Value Reference Range Comments HEPATITIS A IGM ANTIBODY (BEAKER) (test Nonreactive Nonreactive ldyf=908) HEPATITIS B CORE IGM ANTIBODY (BEAKER) (test Nonreactive Nonreactive yoev=175) HEPATITIS C ANTIBODY (BEAKER) (test yvho=060) Nonreactive Nonreactive HEPATITIS B SURFACE ANTIGEN (2) (BEAKER) (test Nonreactive Nonreactive qhwb=7245) BASIC METABOLIC [id number] 04:48:00 Test Item Value Reference Range Comments SODIUM (BEAKER) (test 135 meq/L 136-145 fgjb=348) POTASSIUM (BEAKER) (test 5.2 meq/L 3.5-5.1 xhna=691) CHLORIDE (BEAKER) (test 104 meq/L 98-107 zdls=678) CO2 (BEAKER) (test 22 meq/L 22-29 gvxs=798) BLOOD UREA NITROGEN 46 mg/dL 7-21 (BEAKER) (test tgaj=101) CREATININE (BEAKER) (test 2.64 mg/dL 0.57-1.25 gsyr=566) GLUCOSE RANDOM (BEAKER) 176 mg/dL 70-105 (test rsob=454) CALCIUM (BEAKER) (test 8.2 mg/dL 8.4-10.2 bvib=025) EGFR (BEAKER) (test 18 mL/min/1.73 sq m ESTIMATED GFR IS NOT mwvy=5032) ACCURATE CREATININE CLEARANCE IN PREDICTING GLOMERULAR FILTRATION RATE. ESTIMATED GFR IS NOT APPLICABLE FOR DIALYSIS PATIENTS. URIC [id number] 04:41:00 Test Item Value Reference Range Comments URIC ACID (BEAKER) (test qgwu=491) 10.3 mg/dL 2.6-7.2 [id number] 04:41:00 Test Item Value Reference Range Comments MAGNESIUM (BEAKER) (test rpmo=929) 2.0 mg/dL 1.6-2.6 [id number] 04:41:00 Test Item Value Reference Range Comments PHOSPHORUS (BEAKER) (test wjcz=047) 4.2 mg/dL 2.3-4.7 COMPLEMENT COMPONENT [id number] 04:38:00 Test Item Value Reference Range Comments C4 COMPLEMENT (BEAKER) (test ndbe=750) 28 mg/dL 15-57 COMPLEMENT COMPONENT [id number] 04:38:00 Test Item Value Reference Range Comments C3 COMPLEMENT (BEAKER) (test nyzf=721) 103 mg/dL 82-193 CBC W/PLT COUNT & AUTO [id number] 04:22:00 Test Item Value Reference Range Comments WHITE BLOOD CELL COUNT (BEAKER) (test qidr=247) 11.0 K/ L 3.5-10.5 RED BLOOD CELL COUNT (BEAKER) (test ixby=957) 4.25 M/ L 3.93-5.22 HEMOGLOBIN (BEAKER) (test fceg=046) 10.6 GM/DL 11.2-15.7 HEMATOCRIT (BEAKER) (test ulyv=019) 35.3 % 34.1-44.9 MEAN CORPUSCULAR VOLUME (BEAKER) (test jsfw=250) 83.1 fL 79.4-94.8 MEAN CORPUSCULAR HEMOGLOBIN (BEAKER) (test 24.9 pg 25.6-32.2 tmlw=576) MEAN CORPUSCULAR HEMOGLOBIN CONC (BEAKER) (test 30.0 GM/DL 32.2-35.5 hfbv=716) RED CELL DISTRIBUTION WIDTH (BEAKER) (test 14.5 % 11.7-14.4 uoug=252) PLATELET COUNT (BEAKER) (test edgo=044) 185 K/CU MM 150-450 MEAN PLATELET VOLUME (BEAKER) (test zels=548) 10.9 fL 9.4-12.3 NUCLEATED RED BLOOD CELLS (BEAKER) (test 0 /100 WBC 0-0 neyo=565) NEUTROPHILS RELATIVE PERCENT (BEAKER) (test 61 % gtvj=482) LYMPHOCYTES RELATIVE PERCENT (BEAKER) (test 31 % yzoq=088) MONOCYTES RELATIVE PERCENT (BEAKER) (test 5 % ekyb=374) EOSINOPHILS RELATIVE PERCENT (BEAKER) (test 2 % ihhq=425) BASOPHILS RELATIVE PERCENT (BEAKER) (test 1 % cimi=325) NEUTROPHILS ABSOLUTE COUNT (BEAKER) (test 6.72 K/ L 1.56-6.13 mezi=997) LYMPHOCYTES ABSOLUTE COUNT (BEAKER) (test 3.35 K/ L 1.18-3.74 adcq=011) MONOCYTES ABSOLUTE COUNT (BEAKER) (test 0.59 K/ L 0.24-0.36 tsth=938) EOSINOPHILS ABSOLUTE COUNT (BEAKER) (test 0.21 K/ L 0.04-0.36 siku=051) BASOPHILS ABSOLUTE COUNT (BEAKER) (test 0.06 K/ L 0.01-0.08 awbv=438) IMMATURE GRANULOCYTES-RELATIVE PERCENT (BEAKER) 0 % 0-1 (test jafw=4068) POCT-GLUCOSE [id number] 21:46:00 Test Item Value Reference Range Comments POC-GLUCOSE METER (BEAKER) 173 mg/dL 70-110 TESTED AT [address] (test ohnd=9405) [place] [address] POCT-GLUCOSE [id number] 21:46:00 Test Item Value Reference Range Comments POC-GLUCOSE METER (BEAKER) 154 mg/dL 70-110 TESTED AT [address] (test swqr=5819) [place] [address] POCT-GLUCOSE [id number] 18:17:00 Test Item Value Reference Range Comments POC-GLUCOSE METER (BEAKER) 175 mg/dL 70-110 TESTED AT [address] (test ruij=0984) [place] [address] RAD, CHEST, 1 VIEW, NON [id number] 14:56:00Reason for exam:->SOBShould this be performed at the bedside?->YesFINAL REPORT INDICATION: SOB COMPARISON: May 13, 2017 TECHNIQUE: Chest radiograph, single view, portable technique. FINDINGS / IMPRESSION: Enlarged heart shadow, small rightpleural effusion, and pulmonary venous congestion, again demonstrated. No pneumothorax or consolidation. Osseous structures unremarkable. Signed: Satnam Jean [facility] Verified Date/Time: 05/14/2017 14:56:58 Reading Location: [facility] Mammo Reading Room POCT-GLUCOSE [id number] 12:18:00 Test Item Value Reference Range Comments POC-GLUCOSE METER (BEAKER) 313 mg/dL 70-110 TESTED AT [address] (test pfmk=9808) [place] [address] HIV-1 ANTIGEN WITH HIV-1/2 [id number] 12:07:00 Test Item Value Reference Range Comments HIV-1 ANTIGEN WITH HIV 1\T\2 ANTIBODY (2) Nonreactive Nonreactive (BEAKER) (test fvxv=1788) CALCIUM, [id number] 06:37:00 Test Item Value Reference Range Comments CALCIUM IONIZED (BEAKER) (test ywmh=135) 1.08 mmol/L 1.12-1.27 PH, BLOOD (BEAKER) (test oqkv=4044) 7.25 BASIC METABOLIC [id number] 06:26:00 Test Item Value Reference Range Comments SODIUM (BEAKER) (test 134 meq/L 136-145 asci=718) POTASSIUM (BEAKER) (test 5.1 meq/L 3.5-5.1 pqok=146) CHLORIDE (BEAKER) (test 103 meq/L 98-107 zacj=591) CO2 (BEAKER) (test 25 meq/L 22-29 yzge=437) BLOOD UREA NITROGEN 45 mg/dL 7-21 (BEAKER) (test wpsb=213) CREATININE (BEAKER) (test 2.92 mg/dL 0.57-1.25 fqrz=513) GLUCOSE RANDOM (BEAKER) 163 mg/dL 70-105 (test cguv=694) CALCIUM (BEAKER) (test 8.1 mg/dL 8.4-10.2 fzkb=503) EGFR (BEAKER) (test 16 mL/min/1.73 sq m ESTIMATED GFR IS NOT wttk=7512) ACCURATE CREATININE CLEARANCE IN PREDICTING GLOMERULAR FILTRATION RATE. ESTIMATED GFR IS NOT APPLICABLE FOR DIALYSIS PATIENTS. B-TYPE NATRIURETIC FACTOR (BNP)2017-05-14 06:26:00 Test Item Value Reference Range Comments B-TYPE NATRIURETIC PEPTIDE (BEAKER) (test 474 pg/mL 0-100 kyrn=166) [id number] 06:25:00 Test Item Value Reference Range Comments PHOSPHORUS (BEAKER) (test eubi=855) 5.7 mg/dL 2.3-4.7 [id number] 06:25:00 Test Item Value Reference Range Comments MAGNESIUM (BEAKER) (test gyos=225) 1.5 mg/dL 1.6-2.6 CBC W/PLT COUNT & AUTO [id number] 06:07:00 Test Item Value Reference Range Comments WHITE BLOOD CELL COUNT (BEAKER) (test twyz=804) 8.9 K/ L 3.5-10.5 RED BLOOD CELL COUNT (BEAKER) (test wccl=559) 4.32 M/ L 3.93-5.22 HEMOGLOBIN (BEAKER) (test prnp=995) 11.0 GM/DL 11.2-15.7 HEMATOCRIT (BEAKER) (test qgop=535) 36.6 % 34.1-44.9 MEAN CORPUSCULAR VOLUME (BEAKER) (test jxhh=317) 84.7 fL 79.4-94.8 MEAN CORPUSCULAR HEMOGLOBIN (BEAKER) (test 25.5 pg 25.6-32.2 lxzz=779) MEAN CORPUSCULAR HEMOGLOBIN CONC (BEAKER) (test 30.1 GM/DL 32.2-35.5 ayis=892) RED CELL DISTRIBUTION WIDTH (BEAKER) (test 14.6 % 11.7-14.4 xkrr=178) PLATELET COUNT (BEAKER) (test npju=801) 201 K/CU MM 150-450 MEAN PLATELET VOLUME (BEAKER) (test gyed=052) 11.1 fL 9.4-12.3 NUCLEATED RED BLOOD CELLS (BEAKER) (test 0 /100 WBC 0-0 bmts=520) NEUTROPHILS RELATIVE PERCENT (BEAKER) (test 55 % jyiq=477) LYMPHOCYTES RELATIVE PERCENT (BEAKER) (test 36 % auab=589) MONOCYTES RELATIVE PERCENT (BEAKER) (test 5 % ynyb=123) EOSINOPHILS RELATIVE PERCENT (BEAKER) (test 3 % iqge=656) BASOPHILS RELATIVE PERCENT (BEAKER) (test 1 % kbnn=442) NEUTROPHILS ABSOLUTE COUNT (BEAKER) (test 4.85 K/ L 1.56-6.13 zhge=938) LYMPHOCYTES ABSOLUTE COUNT (BEAKER) (test 3.18 K/ L 1.18-3.74 hqxo=213) MONOCYTES ABSOLUTE COUNT (BEAKER) (test 0.47 K/ L 0.24-0.36 ckdn=971) EOSINOPHILS ABSOLUTE COUNT (BEAKER) (test 0.25 K/ L 0.04-0.36 uyhw=912) BASOPHILS ABSOLUTE COUNT (BEAKER) (test 0.07 K/ L 0.01-0.08 cjbe=096) IMMATURE GRANULOCYTES-RELATIVE PERCENT (BEAKER) 0 % 0-1 (test kehc=0064) POCT-GLUCOSE [id number] 22:38:00 Test Item Value Reference Range Comments POC-GLUCOSE METER (BEAKER) 262 mg/dL 70-110 TESTED AT [facility] [address] (test olwt=5070) [place] [address] PROTEIN, RANDOM [id number] 22:18:00 Test Item Value Reference Range Comments PROTEIN, URINE (BEAKER) (test hkic=1941) 641 mg/dL 0-14 CREATININE, RANDOM [id number] 22:07:00 Test Item Value Reference Range Comments CREATININE URINE (BEAKER) (test zbmf=896) 124.9 mg/dL Reference Range: No NormalsURINALYSIS W/ [id number] 22:03:00 Test Item Value Reference Range Comments COLOR (BEAKER) (test hgin=128) Yellow CLARITY (BEAKER) (test lnsv=284) Cloudy SPECIFIC GRAVITY UA (BEAKER) (test ptvv=928) 1.015 1.001-1.035 PH UA (BEAKER) (test seyk=844) 5.5 5.0-8.0 PROTEIN UA (BEAKER) (test ieqh=492) 300 mg/dL Negative GLUCOSE UA (BEAKER) (test uvfl=080) 300 mg/dL Negative KETONES UA (BEAKER) (test kalp=747) Negative Negative BILIRUBIN UA (BEAKER) (test vpzf=268) Negative Negative BLOOD UA (BEAKER) (test xngj=642) Trace Negative NITRITE UA (BEAKER) (test cntn=942) Negative Negative LEUKOCYTE ESTERASE UA (BEAKER) (test xdxo=361) Moderate Negative UROBILINOGEN UA (BEAKER) (test zblv=066) 0.2 mg/dL 0.2-1.0 RBC UA (BEAKER) (test maln=538) 11 /HPF WBC UA (BEAKER) (test kwjr=611) 36 /HPF MUCUS (BEAKER) (test ffpe=7794) Few SQUAMOUS EPITHELIAL (BEAKER) (test nkrf=151) 12 /HPF HYALINE CASTS (BEAKER) (test jrnn=105) 66 /LPF CASTS (BEAKER) (test wwkm=1481) 112 /LPF YEAST (BEAKER) (test rqlp=1066) Moderate SOURCE(BEAKER) (test sihu=0749) Urine, Voided [id number] 19:49:00 Test Item Value Reference Range Comments SODIUM (BEAKER) (test ybuu=826) 136 meq/L 136-145 POTASSIUM (BEAKER) (test 5.1 meq/L 3.5-5.1 Specimen slightly hemolyzed ehon=616) CHLORIDE (BEAKER) (test 104 meq/L 98-107 pjks=497) CO2 (BEAKER) (test cjje=416) 25 meq/L 22-29 Call if K > 5POCT-GLUCOSE [id number] 11:37:00 Test Item Value Reference Range Comments POC-GLUCOSE METER (BEAKER) 293 mg/dL 70-110 TESTED AT [address] (test lnfs=7329) [place] [address] RAD, CHEST, 1 VIEW, NON [id number] 10:22:00Reason for exam:->SOBShould this be performed at the bedside?->YesFINAL REPORT Chest one view Discussion: There is cardiomegaly and interstitial congestion. A small right-sided effusion is noted. No pneumothorax. IMPRESSIONS: Suspected CHF. Signed: Jeannette Nava Verified Date/Time: 05/13/2017 10:22:34 Reading Location: [facility] Radiology Reading Room POCT-GLUCOSE [id number] 08:34:00 Test Item Value Reference Range Comments POC-GLUCOSE METER (BEAKER) 178 mg/dL 70-110 TESTED AT [address] (test iaqn=6982) [place] [address] POCT-GLUCOSE [id number] 06:53:00 Test Item Value Reference Range Comments POC-GLUCOSE METER (BEAKER) 167 mg/dL 70-110 TESTED AT [address] (test vxdf=2563) [place] [address] [id number] 04:48:00 Test Item Value Reference Range Comments BLOOD UREA NITROGEN (BEAKER) (test btqh=520) 36 mg/dL 7-21 [id number] 04:48:00 Test Item Value Reference Range Comments SODIUM (BEAKER) (test joqm=790) 139 meq/L 136-145 POTASSIUM (BEAKER) (test ottb=100) 5.2 meq/L 3.5-5.1 CHLORIDE (BEAKER) (test pmwr=433) 109 meq/L 98-107 CO2 (BEAKER) (test zdet=720) 23 meq/L 22-29 [id number] 04:48:00 Test Item Value Reference Range Comments CREATININE (BEAKER) (test 1.73 mg/dL 0.57-1.25 mpyi=784) EGFR (BEAKER) (test 30 mL/min/1.73 sq m ESTIMATED GFR IS NOT pypu=5056) ACCURATE CREATININE CLEARANCE IN PREDICTING GLOMERULAR FILTRATION RATE. ESTIMATED GFR IS NOT APPLICABLE FOR DIALYSIS PATIENTS. CBC (HEMOGRAM ONLY)2017-05-13 04:33:00 Test Item Value Reference Range Comments WHITE BLOOD CELL COUNT (BEAKER) (test jgtk=683) 10.2 K/ L 3.5-10.5 RED BLOOD CELL COUNT (BEAKER) (test hmnc=199) 4.54 M/ L 3.93-5.22 HEMOGLOBIN (BEAKER) (test neml=027) 11.4 GM/DL 11.2-15.7 HEMATOCRIT (BEAKER) (test racd=216) 37.6 % 34.1-44.9 MEAN CORPUSCULAR VOLUME (BEAKER) (test uwyf=208) 82.8 fL 79.4-94.8 MEAN CORPUSCULAR HEMOGLOBIN (BEAKER) (test 25.1 pg 25.6-32.2 mudo=306) MEAN CORPUSCULAR HEMOGLOBIN CONC (BEAKER) (test 30.3 GM/DL 32.2-35.5 upum=820) RED CELL DISTRIBUTION WIDTH (BEAKER) (test 14.7 % 11.7-14.4 bmie=524) PLATELET COUNT (BEAKER) (test gciv=020) 194 K/CU MM 150-450 MEAN PLATELET VOLUME (BEAKER) (test lgjf=941) 10.9 fL 9.4-12.3 NUCLEATED RED BLOOD CELLS (BEAKER) (test 0 /100 WBC 0-0 rham=124) [id number] 23:29:00 Test Item Value Reference Range Comments ACTIVATED CLOTTING TIME 136 sec TESTED AT [address] (BEAKER) (test vuvf=744) [facility] [address] [id number] 20:13:00 Test Item Value Reference Range Comments ACTIVATED CLOTTING TIME 175 sec TESTED AT [facility] [address] (BEAKER) (test zszt=006) [place] [address] [id number] 18:36:00 Test Item Value Reference Range Comments ACTIVATED CLOTTING TIME 202 sec TESTED AT [place] [id number] (BEAKER) (test bbji=015) [place] [address] [id number] 18:03:00 Test Item Value Reference Range Comments ACTIVATED CLOTTING TIME 208 sec TESTED AT [address] (BEAKER) (test dlcv=444) [place] [address] BASIC METABOLIC [id number] 11:57:00 Test Item Value Reference Range Comments SODIUM (BEAKER) (test 139 meq/L 136-145 ysrh=322) POTASSIUM (BEAKER) (test 4.9 meq/L 3.5-5.1 sljx=216) CHLORIDE (BEAKER) (test 107 meq/L 98-107 oawx=993) CO2 (BEAKER) (test 27 meq/L 22-29 sojy=177) BLOOD UREA NITROGEN 36 mg/dL 7-21 (BEAKER) (test clpw=964) CREATININE (BEAKER) (test 1.60 mg/dL 0.57-1.25 czok=921) GLUCOSE RANDOM (BEAKER) 187 mg/dL 70-105 (test nsld=074) CALCIUM (BEAKER) (test 8.6 mg/dL 8.4-10.2 rfko=270) EGFR (BEAKER) (test 33 mL/min/1.73 sq m ESTIMATED GFR IS NOT zfuw=1082) ACCURATE CREATININE CLEARANCE IN PREDICTING GLOMERULAR FILTRATION RATE. ESTIMATED GFR IS NOT APPLICABLE FOR DIALYSIS PATIENTS. PROTHROMBIN [id number] 11:15:00 Test Item Value Reference Range Comments PROTIME (BEAKER) (test invr=921) 14.8 seconds 11.7-14.7 INR (BEAKER) (test ktzc=352) 1.2 <=5.9 RECOMMENDED COUMADIN/WARFARIN INR THERAPY RANGESSTANDARD DOSE: 2.0 - 3.0 Includes: PROPHYLAXIS forvenous thrombosis, systemic embolization; TREATMENT for venous thrombosis and/or pulmonary embolus.HIGH RISK: Target INR is 2.5-3.5 for patients with mechanical heart valves.Within 24 hours, if on CoumadinCBC W/ PLT COUNT & AUTO [id number] 11:01:00 Test Item Value Reference Range Comments WHITE BLOOD CELL COUNT (BEAKER) (test kpqx=891) 9.1 K/ L 3.5-10.5 RED BLOOD CELL COUNT (BEAKER) (test nnas=557) 4.62 M/ L 3.93-5.22 HEMOGLOBIN (BEAKER) (test ugpg=510) 11.7 GM/DL 11.2-15.7 HEMATOCRIT (BEAKER) (test dlaz=176) 38.0 % 34.1-44.9 MEAN CORPUSCULAR VOLUME (BEAKER) (test xcho=634) 82.3 fL 79.4-94.8 MEAN CORPUSCULAR HEMOGLOBIN (BEAKER) (test 25.3 pg 25.6-32.2 ndog=796) MEAN CORPUSCULAR HEMOGLOBIN CONC (BEAKER) (test 30.8 GM/DL 32.2-35.5 rsjb=442) RED CELL DISTRIBUTION WIDTH (BEAKER) (test 14.5 % 11.7-14.4 esuj=599) PLATELET COUNT (BEAKER) (test fmtf=269) 205 K/CU MM 150-450 MEAN PLATELET VOLUME (BEAKER) (test vbla=837) 10.6 fL 9.4-12.3 NUCLEATED RED BLOOD CELLS (BEAKER) (test 0 /100 WBC 0-0 ptsu=055) NEUTROPHILS RELATIVE PERCENT (BEAKER) (test 59 % eqpq=897) LYMPHOCYTES RELATIVE PERCENT (BEAKER) (test 32 % isci=758) MONOCYTES RELATIVE PERCENT (BEAKER) (test 5 % apov=988) EOSINOPHILS RELATIVE PERCENT (BEAKER) (test 3 % fpoa=864) BASOPHILS RELATIVE PERCENT (BEAKER) (test 1 % jtpl=016) NEUTROPHILS ABSOLUTE COUNT (BEAKER) (test 5.36 K/ L 1.56-6.13 jjkm=786) LYMPHOCYTES ABSOLUTE COUNT (BEAKER) (test 2.86 K/ L 1.18-3.74 fcow=447) MONOCYTES ABSOLUTE COUNT (BEAKER) (test 0.48 K/ L 0.24-0.36 iqaz=052) EOSINOPHILS ABSOLUTE COUNT (BEAKER) (test 0.27 K/ L 0.04-0.36 mthi=162) BASOPHILS ABSOLUTE COUNT (BEAKER) (test 0.08 K/ L 0.01-0.08 yvca=625) IMMATURE GRANULOCYTES-RELATIVE PERCENT (BEAKER) 0 % 0-1 (test vewk=6216) POCT-GLUCOSE [id number] 12:35:00 Test Item Value Reference Range Comments POC-GLUCOSE METER (BEAKER) 249 mg/dL 70-110 TESTED AT [address] (test jizd=8013) [facility] [address] POCT-GLUCOSE [id number] 09:10:00 Test Item Value Reference Range Comments POC-GLUCOSE METER (BEAKER) 155 mg/dL 70-110 TESTED AT [address] (test hoyq=1351) [place] [id number] BASIC METABOLIC [id number] 05:39:00 Test Item Value Reference Range Comments SODIUM (BEAKER) (test 138 meq/L 136-145 mcfz=515) POTASSIUM (BEAKER) (test 4.7 meq/L 3.5-5.1 glbl=643) CHLORIDE (BEAKER) (test 107 meq/L 98-107 bjid=005) CO2 (BEAKER) (test 25 meq/L 22-29 ymqp=633) BLOOD UREA NITROGEN 36 mg/dL 7-21 (BEAKER) (test btcp=001) CREATININE (BEAKER) (test 1.75 mg/dL 0.57-1.25 ubwc=122) GLUCOSE RANDOM (BEAKER) 126 mg/dL 70-105 (test kbon=752) CALCIUM (BEAKER) (test 8.2 mg/dL 8.4-10.2 vspp=609) EGFR (BEAKER) (test 29 mL/min/1.73 sq m ESTIMATED GFR IS NOT bfud=0764) ACCURATE CREATININE CLEARANCE IN PREDICTING GLOMERULAR FILTRATION RATE. ESTIMATED GFR IS NOT APPLICABLE FOR DIALYSIS PATIENTS. [id number] 05:27:00 Test Item Value Reference Range Comments PHOSPHORUS (BEAKER) (test zhnf=976) 5.0 mg/dL 2.3-4.7 [id number] 05:27:00 Test Item Value Reference Range Comments MAGNESIUM (BEAKER) (test nmfz=475) 1.6 mg/dL 1.6-2.6 POCT-GLUCOSE [id number] 05:25:00 Test Item Value Reference Range Comments POC-GLUCOSE METER (BEAKER) 144 mg/dL 70-110 TESTED AT [address] (test zhxc=1049) [place] [address] PROTHROMBIN [id number] 04:58:00 Test Item Value Reference Range Comments PROTIME (BEAKER) (test nydu=520) 14.2 seconds 11.7-14.7 INR (BEAKER) (test eozw=990) 1.1 <=5.9 RECOMMENDED COUMADIN/WARFARIN INR THERAPY RANGESSTANDARD DOSE: 2.0 - 3.0 Includes: PROPHYLAXIS forvenous thrombosis, systemic embolization; TREATMENT for venous thrombosis and/or pulmonary embolus.HIGH RISK: Target INR is 2.5-3.5 for patients with mechanical heart valves.POCT-GLUCOSE [id number] 23:55:00 Test Item Value Reference Range Comments POC-GLUCOSE METER (BEAKER) 86 mg/dL 70-110 TESTED AT [address] (test rpmp=0538) [place] [address] B-TYPE NATRIURETIC FACTOR (BNP)2017-04-22 18:13:00 Test Item Value Reference Range Comments B-TYPE NATRIURETIC PEPTIDE (BEAKER) (test 1203 pg/mL 0-100 upbt=908) POCT-GLUCOSE [id number] 17:36:00 Test Item Value Reference Range Comments POC-GLUCOSE METER (BEAKER) 259 mg/dL 70-110 TESTED AT [address] (test sajd=9378) [place] [address] HEMOGLOBIN [id number] 14:24:00 Test Item Value Reference Range Comments HEMOGLOBIN A1C (BEAKER) (test kmpv=019) 10.5 % 4.3-6.1 POCT-GLUCOSE [id number] 12:34:00 Test Item Value Reference Range Comments POC-GLUCOSE METER (BEAKER) 207 mg/dL 70-110 TESTED AT [address] (test aerl=1380) [place] [address] [id number] 07:53:00 Test Item Value Reference Range Comments PHOSPHORUS (BEAKER) (test rpgn=944) 3.9 mg/dL 2.3-4.7 [id number] 07:53:00 Test Item Value Reference Range Comments MAGNESIUM (BEAKER) (test ujqk=924) 1.6 mg/dL 1.6-2.6 BASIC METABOLIC [id number] 07:53:00 Test Item Value Reference Range Comments SODIUM (BEAKER) (test 139 meq/L 136-145 ypeu=171) POTASSIUM (BEAKER) (test 4.5 meq/L 3.5-5.1 eysb=907) CHLORIDE (BEAKER) (test 108 meq/L 98-107 ylsr=000) CO2 (BEAKER) (test 25 meq/L 22-29 huow=918) BLOOD UREA NITROGEN 29 mg/dL 7-21 (BEAKER) (test vuqu=831) CREATININE (BEAKER) (test 1.54 mg/dL 0.57-1.25 ipys=857) GLUCOSE RANDOM (BEAKER) 211 mg/dL 70-105 (test ogym=247) CALCIUM (BEAKER) (test 8.5 mg/dL 8.4-10.2 wnlh=193) EGFR (BEAKER) (test 34 mL/min/1.73 sq m ESTIMATED GFR IS NOT eijg=8361) ACCURATE CREATININE CLEARANCE IN PREDICTING GLOMERULAR FILTRATION RATE. ESTIMATED GFR IS NOT APPLICABLE FOR DIALYSIS PATIENTS. TROPONIN [id number] 07:29:00 Test Item Value Reference Range Comments TROPONIN I (BEAKER) (test axou=746) 0.05 ng/mL 0.00-0.03 Troponin I (TnI) levels [...] acidosis, acute neurological disease, and persistent tachyarrhythmia.PROTHROMBIN [id number] 07:01:00 Test Item Value Reference Range Comments PROTIME (BEAKER) (test zqzf=805) 13.8 seconds 11.7-14.7 INR (BEAKER) (test pfwf=760) 1.1 <=5.9 RECOMMENDED COUMADIN/WARFARIN INR THERAPY RANGESSTANDARD DOSE: 2.0 - 3.0 Includes: PROPHYLAXIS forvenous thrombosis, systemic embolization; TREATMENT for venous thrombosis and/or pulmonary embolus.HIGH RISK: Target INR is 2.5-3.5 for patients with mechanical heart valves.POCT-GLUCOSE [id number] 06:28:00 Test Item Value Reference Range Comments POC-GLUCOSE METER (BEAKER) 198 mg/dL 70-110 TESTED AT [address] (test txtn=7300) [place] [id number] CREATINE KINASE (CK), TOTAL AND [id number] 00:49:00 Test Item Value Reference Range Comments CREATINE KINASE TOTAL (BEAKER) (test elpd=692) 69 U/L 29-200 CREATINE KINASE-MB (BEAKER) (test zdsq=763) 4.3 ng/mL 0.0-6.6 CREATINE KINASE-MB INDEX (BEAKER) (test ldlq=434) 6.2 % CK-MB Reference Range:<6.7 Normal6.7-10.0 Borderline>10.0 AbnormalTROPONIN [id number] 00:49:00 Test Item Value Reference Range Comments TROPONIN I (BEAKER) (test rguw=201) 0.05 ng/mL 0.00-0.03 Troponin I (TnI) levels [...] acidosis, acute neurological disease, and persistent tachyarrhythmia.POCT-GLUCOSE [id number] 20:44:00 Test Item Value Reference Range Comments POC-GLUCOSE METER (BEAKER) 269 mg/dL 70-110 TESTED AT [address] (test nlnr=5276) [place] [id number]
--- OUTSIDE RECORDS SUMMARY | 2019-06-17 22:49 | XMS REPORT ---
[...] J44.9 Active disease, unspecified COPD type Assessment [employer] current use of insulin Z79.4 Active Assessment [...] diabetes mellitus with E11.65 Active hyperglycemia Problem [employer] current use of insulin Z79.4 Active Medications Medication Code Code Instructions Start End Status Dosage System Date Date Allopurinol ND 39769302427 100 MG Oral Active TAKE 1 TABLET BY MOUTH TWICE A DAY NIFEdipine ER ND 17076082818 60 MG Oral Active TAKE 1 TABLET BY MOUTH EVERY DAY ProAir HFA ND 91560861825 108 (90 Base) Active INHALE 2 MCG/ACT PUFFS 3 TIMES A DAY NEEDED FOR SHORTNESS OF BREATH Furosemide ND 34879777690 40 MG Active TAKE BY MOUTH 1 TABLET NEEDED FOR SHORTNESS OF BREATH MAY TAKE NEEDED IF WITH INCREASE EDEMA Acetaminophen-C ND 05747698160 300-30 MG Oral Active (Schedule odeine #3 III Drug) TAKE 1 TABLET BY MOUTH EVERY 6 HOURS NEEDED FOR PAIN Carvedilol [facility] 10275186236 12.5 MG Oral Active TAKE 1 TABLET BY MOUTH TWICE A DAY Isosorbide [facility] 19808431523 30 MG Oral Active TAKE 1 Mononitrate ER TABLET BY MOUTH EVERY DAY Atorvastatin [facility] 86848088629 40 MG Oral Active TAKE 1 Calcium TABLET BY MOUTH EVERY DAY Levemir [facility] 54371299318 100 UNIT/ML Active INJECT 10 FlexTouch Subcutaneous UNITS BELOW THE SKIN IN THE MORNING Vitamin D [facility] 41818836159 93155 UNIT Oral Active TAKE ONE (Ergocalciferol CAPSULE BY ) MOUTH ONE TIME PER WEEK BuPROPion HCl [facility] 23900340672 75 MG Oral Active TAKE 1 TABLET BY MOUTH EVERY DAY Clopidogrel [facility] 24469600385 75 MG Oral Active TAKE 1 Bisulfate TABLET BY MOUTH EVERY DAY Gabapentin [facility] 45258206601 100 MG Oral Active TAKE 1 CAPSULE BY MOUTH THREE TIMES A DAY HydrALAZINE HCl [facility] 56827091178 100 MG Active TAKE 1 TABLET BY MOUTH THREE TIMES A DAY Advair Diskus [facility] 83505567002 250-50 MCG/DOSE Active INHALE 1 DOSE BY MOUTH TWICE DAILY. RINSE MOUTH AFTER USE Trazodone HCl [facility] 43746792619 50 MG Oral Active TAKE 1 TABLET BY MOUTH EVERYDAY AT BEDTIME Results No Known Results Summary Purpose eClinicalWorks Submission
[2019-06-17] MEDS ORDERED: ONDANSETRON 4 MG/2 ML VIAL ONE (23:34)
[2019-06-17] MEDS ORDERED: FENTANYL CITR 100 MCG/2 ML ONE (23:34)
[2019-06-18 00:16] LABS: Absolute Lymphocytes (CBC) 1.6 K/uL (0.7-4.9); Basophils % 1.2 % (0-1.3); Hematocrit 32.1 % (36.0-45.0); Lymphocytes % 21.6 % (15.3-44.8); MPV 7.9 fL (7.6-11.3); RBC Red Blood Cell Count 3.78 M/uL (3.86-4.86)
[2019-06-18 00:17] LABS: Protime INR 1.25
[2019-06-18 00:33] LABS: Albumin 2.3 g/dL (3.4-5.0); Bilirubin Direct 0.3 mg/dL (0-0.2); Bilirubin Total 0.7 mg/dL (0.2-1.0); Magnesium 1.6 mg/dL (1.8-2.4); Potassium 3.5 mmol/L (3.5-5.1); Protein, Total 6.7 g/dL (6.4-8.2); Troponin (Emerg Dept Use Only) 0.05 ng/mL (0.0-0.045)
[2019-06-18] MEDS ORDERED: ASPIRIN 81 MG CHEWABLE TABLET ONE (00:45)
[2019-06-18] MEDS ORDERED: MAGNESIUM SULFATE 1 gm IVPB 1 GM/100 ML BAG IV ONE (00:46)
[2019-06-18 00:58] LABS: Anisocytosis 1+; Blood Morphology Comment NOTED (NOT SEEN); Macrocytosis 1+; Platelet Estimate ADEQ; Urine White Blood Cell Casts OK
[2019-06-18] MEDS ORDERED: ALBUTEROL 2.5 MG/3 ML NEB SOL NEB PRN (01:04)
[2019-06-18] MEDS ORDERED: ONDANSETRON 4 MG/2 ML VIAL IV PRN (01:04)
--- NOTE | 2019-06-18 01:06 | EDPHYS ---
Physician Documentation [facility] Name: Christy Priest Age: 64 yrs Sex: Female : 1955 Arrival Date: 06/17/2019 Time: 22:53 Bed 20 Private MD: ED Physician Alessio Parry HPI: 06/16 23:16 This 64 yrs old Female presents to ER via EMS with complaints of chest pain. jmm 23:16 The patient or guardian reports chest pain that is located primarily in the substernal [facility] area. Onset: gradually. The pain does not radiate. Associated signs and symptoms: Pertinent positives: shortness of breath. This is a 64 year old female with a history of CHF, COPD, DM, ESRD that presents to the ED with complaints of chest pain beginning this evening approx 2 hours ago. Patient states the pain radiates to her back. Patient recently had a vascular surgery. . Historical: - Allergies: 23:01 Augmentin; rr5 23:01 basil; rr5 23:01 Morphine; rr5 23:01 Nitroglycerin; rr5 23:01 Tramadol HCl; rr5 23:01 Trazodone; rr5 23:01 Vancomycin; rr5 - Home Meds: 23:01 gabapentin Oral [Active]; Hydralazine Oral [Active]; insulin [Active]; Lasix Oral rr5 [Active]; Plavix Oral [Active]; - PMHx: 23:01 CHF; COPD; Diabetes - IDDM; ESRD; High Cholesterol; Hypertension; triple bypass; rr5 uterine cancer; - PSHx: 23:01 Cholecystectomy; Hysterectomy; leg surgery; rr5 - Immunization history:: Adult Immunizations up to date, Pneumococcal vaccine is up to date. - Social history:: Smoking status: Patient reports the use of cigarette tobacco products, 7 sticks per day, Patient/guardian denies using alcohol, street drugs. ROS: 23:16 Constitutional: Negative for fever, chills, and weight loss. jmm 23:16 Cardiovascular: Positive for chest pain. 23:16 Respiratory: Positive for shortness of breath. 23:16 All other systems are negative. Exam: 23:16 Constitutional: This is a well developed, well nourished patient who is awake, alert, jmm and in no acute distress. Head/Face: atraumatic. Eyes: EOMI, no conjunctival erythema appreciated ENT: Moist Mucus Membranes Neck: Trachea midline, Supple 23:16 Cardiovascular: Regular rate and rhythm. No edema appreciated Respiratory: Normal respirations, no respiratory distress appreciated Abdomen/GI: Non distended, soft Back: Normal ROM Skin: General appearance color normal Neuro: Awake and alert, normal gait Psych: Behavior is normal, Mood is normal, Patient is cooperative and pleasant 23:16 Chest/axilla: Inspection: normal, Palpation: tenderness, that is moderate. 23:24 Musculoskeletal/extremity: bilateral swelling noted to the lower extremities [facility] bilaterally.. 23:24 Neuro: Orientation: is normal, Mentation: is normal, Memory: is normal. 23:24 Psych: Behavior/mood is pleasant, cooperative. Vital Signs: 22:50 BP 167 / 95; Pulse 83; Resp 19; Temp 98.3; Pulse Ox 82% on R/A; Weight 95.25 kg; Height rr5 5 ft. 7 in. (170.18 cm); Pain 9/10; 23:00 BP 163 / 90; Pulse 82; Resp 20; Pulse Ox 99% on 2 lpm NC; rr5 06/17 00:00 BP 182 / 95; Pulse 80; Resp 18; Pulse Ox 98% on 2 lpm NC; rr5 01:00 BP 168 / 82; Pulse 79; Resp 19; Pulse Ox 99% 2 lpm ; rr5 01:39 BP 173 / 80; Pulse 80; Resp 18; Pulse Ox 99% on 2 lpm NC; mg2 01:57 Temp 97.5; rr5 06/16 22:50 Body Mass Index 32.89 (95.25 kg, 170.18 cm) rr5 06/16 23:00 hooked to oxygen rr5 MDM: 23:02 Patient medically screened. carlos 06/17 01:03 The patient was given aspirin in the Emergency Department. Data reviewed: vital signs, [facility] nurses notes, lab test result(s), EKG, radiologic studies, plain films. ED course: I discussed the patient with Dr. Sepulveda whom accepted admission. . 06/16 23:16 Order name: Basic Metabolic Panel; Complete Time: 00:35 [facility] 06/16 23:16 Order name: CBC with Diff; Complete Time: 01:09 [facility] 06/16 23:16 Order name: LFT's; Complete Time: 00:35 [facility] 06/16 23:16 Order name: Magnesium; Complete Time: 00:35 [facility] 06/16 23:16 Order name: NT PRO-BNP; Complete Time: 00:35 [facility] 06/16 23:16 Order name: PT-INR; Complete Time: 00:31 [facility] 06/16 23:16 Order name: Troponin (emerg Dept Use Only); Complete Time: 00:35 [facility] 06/17 00:58 Order name: CBC Smear Scan; Complete Time: 01:09 [facility] 06/17 01:17 Order name: CBC with Automated Diff [facility] 06/17 01:17 Order name: CBC with Automated Diff [facility] 06/17 01:17 Order name: Comprehensive Metabolic Panel [facility] 06/17 01:17 Order name: Comprehensive Metabolic Panel [facility] 06/17 01:17 Order name: Magnesium [facility] 06/17 01:17 Order name: Magnesium [facility] 06/16 23:16 Order name: XRAY Chest (1 view) [facility] 06/16 23:16 Order name: EKG; Complete Time: 23:17 [facility] 06/16 23:16 Order name: Cardiac monitoring; Complete Time: 23:20 [facility] 06/16 23:16 Order name: EKG - Nurse/Tech; Complete Time: 23:19 [facility] 06/17 01:17 Order name: CONS Pharmacy Consult [facility] 06/17 01:17 Order name: CONS Physician Consult [facility] 06/17 01:17 Order name: Renal [facility] 06/17 01:17 Order name: Magnesium [facility] 06/17 01:17 Order name: Magnesium [facility] 06/17 01:17 Order name: Troponin I [facility] 06/17 01:17 Order name: Troponin I [facility] 06/17 01:17 Order name: Troponin I [facility] 06/16 23:16 Order name: IV Saline Lock; Complete Time: 23:20 [facility] 06/16 23:16 Order name: Labs collected and sent; Complete Time: 23:20 [facility] 06/16 23:16 Order name: O2 Per Protocol; Complete Time: 23:20 [facility] 06/16 23:16 Order name: O2 Sat Monitoring; Complete Time: 23:20 jm Administered Medications: 06/16 23:35 Drug: fentaNYL (PF) 50 mcg {Note: RASS -1.} Route: IVP; Site: left antecubital; ll1 06/17 01:36 Follow up: Response: No adverse reaction; RASS: Alert and Calm (0) mg2 06/16 23:35 Drug: Zofran (Ondansetron) 4 mg Route: IVP; Site: left antecubital; ll1 06/17 01:36 Follow up: Response: No adverse reaction mg2 00:40 Drug: Aspirin Chewable Tablet 324 mg Route: PO; rr5 01:34 Follow up: Response: No adverse reaction mg2 00:45 Drug: Magnesium Sulfate 1 grams Route: IVPB; Infused Over: 1 hrs; Site: left rr5 antecubital; 01:56 Follow up: Response: No adverse reaction; IV Status: Completed infusion; IV Intake: rr5 100ml Disposition: 12:05 Co-signature as Attending Physician, Alessio Parry MD I agree with the assessment and carlos plan of care. Disposition: 06/18/19 01:04 Hospitalization ordered by Greg Sepulveda for Observation. Preliminary diagnosis is Chest pain, unspecified. - Bed requested for Telemetry/MedSurg (observation). - Status is Observation. rr5 - Condition is Stable. - Problem is new. - Symptoms have improved. Signatures: Dispatcher [employer] EDMS Alessio Parry MD MD cha Mickail, Joel, PA PA [facility] Kaci Glass RN RN Oleksandr Monae RN RN rr5 Gustabo Montalvo RN RN ll1 Brian Carrillo RN mg2 Corrections: (The following items were deleted from the chart) 06/16 23:25 23:16 Cardiovascular: Regular rate and rhythm. No edema appreciated Respiratory: Normal [facility] respirations, no respiratory distress appreciated Abdomen/GI: Non distended, soft Back: Normal ROM Skin: General appearance color normal MS/ Extremity: Moves all extremities, no obvious deformities appreciated, no edema noted to the lower extremities Neuro: Awake and alert, normal gait Psych: Behavior is normal, Mood is normal, Patient is cooperative and pleasant [facility] 06/17 01:36 01:04 Hospitalization Ordered by Greg Sepulveda MD for Observation. Preliminary cg diagnosis is Chest pain, unspecified. Bed requested for Telemetry/MedSurg (observation). Status is Observation. Condition is Stable. Problem is new. Symptoms have improved. [facility] 01:58 01:36 06/18/2019 01:04 Hospitalization Ordered by Greg Sepulveda MD for Observation. rr5 Preliminary diagnosis is Chest pain, unspecified. Bed requested for Telemetry/MedSurg (observation). Status is Observation. Condition is Stable. Problem is new. Symptoms have improved. cg
--- NOTE | 2019-06-18 01:06 | ER ---
Nurse's Notes [facility] Name: Christy Priest Age: 64 yrs Sex: Female : 1955 Arrival Date: 06/17/2019 Time: 22:53 Bed 20 Private MD: Diagnosis: Chest pain, unspecified Presentation: 06/16 22:50 Chief complaint: EMS states: patient complaining of chest pain started at 2148H. rr5 22:50 Coronavirus screen: The patient has NOT traveled to a country currently being monitored rr5 by the [facility] within the last 14 days. Proceed with normal triage procedures. Ebola Screen: Patient negative for fever greater than or equal to 101.5 degrees Fahrenheit, and additional compatible Ebola Virus Disease symptoms Patient denies exposure to infectious person. Patient denies travel to an Ebola-affected area in the 21 days before illness onset. Initial Sepsis Screen: Does the patient meet any 2 criteria? No. Patient's initial sepsis screen is negative. Does the patient have a suspected source of infection? No. Patient's initial sepsis screen is negative. Risk Assessment: Do you want to hurt yourself or someone else? Patient reports no desire to harm self or others. Onset of symptoms was June 17, 2019 at 21:48. Care prior to arrival: Medication(s) given: fentanyl 50 mcg/IV given by EMS. Transition of care: patient was not received from another setting of care. 22:50 Method Of Arrival: EMS: [facility] rr5 22:50 Acuity: DENNY 3 rr5 Historical: - Allergies: 23:01 Augmentin; rr5 23:01 basil; rr5 23:01 Morphine; rr5 23:01 Nitroglycerin; rr5 23:01 Tramadol HCl; rr5 23:01 Trazodone; rr5 23:01 Vancomycin; rr5 - Home Meds: 23:01 gabapentin Oral [Active]; Hydralazine Oral [Active]; insulin [Active]; Lasix Oral rr5 [Active]; Plavix Oral [Active]; - PMHx: 23:01 CHF; COPD; Diabetes - IDDM; ESRD; High Cholesterol; Hypertension; triple bypass; rr5 uterine cancer; - PSHx: 23:01 Cholecystectomy; Hysterectomy; leg surgery; rr5 - Immunization history:: Adult Immunizations up to date, Pneumococcal vaccine is up to date. - Social history:: Smoking status: Patient reports the use of cigarette tobacco products, 7 sticks per day, Patient/guardian denies using alcohol, street drugs. Screenin:20 Abuse screen: Denies threats or abuse. Nutritional screening: No deficits noted. ll1 Tuberculosis screening: No symptoms or risk factors identified. Fall Risk Secondary diagnosis (15 points) COPD/CHF. IV access (20 points). Gait- Impaired (20 pts.). Total Merlos Fall Scale indicates High Risk Score (45 or more points). Fall prevention measures have been instituted. Side Rails Up X 2 Placed Close to Nursing Station 1:1 Attendant Assigned Frequent Obs/Assessments Occuring Family Present and informed to notify staff if the need to leave the bedside As available patient and family educated on Fall Prevention Program and Strategies. Assessment: 23:15 General: Appears ill, Behavior is cooperative, quiet. Pain: Complains of pain in chest ll1 Pain currently is 9 out of 10 on a pain scale. Quality of pain is described as aching, Pain began 2 hours ago. Is continuous. Neuro: No deficits noted. Cardiovascular: Reports chest pain, fatigue, Heart tones S1 S2 Capillary refill < 3 seconds JVD is absent Patient's skin is warm and dry. Pulses are 2+ in right radial artery and left radial artery. Respiratory: Airway is patent Trachea midline Respiratory effort is even, unlabored, Respiratory pattern is regular, symmetrical, Breath sounds are clear in right upper lobe, right middle lobe and right lower lobe Breath sounds are diminished in left upper lobe and left lower lobe Onset: The symptoms/episode began/occurred just prior to arrival, the patient has mild shortness of breath. Derm: Parent/caregiver reports the patient having blisters, swelling, pain to bilateral lower extremities. Wrapped with gauze and compression wrap. Musculoskeletal: Swelling present in right leg and left leg. 06/17 00:30 Reassessment: Patient appears in no apparent distress at this time. Patient is alert, rr5 oriented x 3, equal unlabored respirations, skin warm/dry/pink. patient is for admission patient updated for the plan of care. 01:30 Reassessment: Patient appears in no apparent distress at this time. Patient is alert, rr5 oriented x 3, equal unlabored respirations, skin warm/dry/pink. hospitalist at bedside examining the patient. Vital Signs: 06/16 22:50 BP 167 / 95; Pulse 83; Resp 19; Temp 98.3; Pulse Ox 82% on R/A; Weight 95.25 kg; Height rr5 5 ft. 7 in. (170.18 cm); Pain 9/10; 23:00 BP 163 / 90; Pulse 82; Resp 20; Pulse Ox 99% on 2 lpm NC; rr5 06/17 00:00 BP 182 / 95; Pulse 80; Resp 18; Pulse Ox 98% on 2 lpm NC; rr5 01:00 BP 168 / 82; Pulse 79; Resp 19; Pulse Ox 99% 2 lpm ; rr5 01:39 BP 173 / 80; Pulse 80; Resp 18; Pulse Ox 99% on 2 lpm NC; mg2 01:57 Temp 97.5; rr5 06/16 22:50 Body Mass Index 32.89 (95.25 kg, 170.18 cm) rr5 06/16 23:00 hooked to oxygen rr5 ED Course: 22:53 Patient arrived in ED. mg2 22:57 Triage completed. rr5 22:57 Arm band placed on right wrist. EKG completed in triage. Results shown to MD. rr5 23:00 Gustabo Montalvo, GUILHERME is Primary Nurse. ll1 23:01 Pedro Wall PA is PHCP. jmm 23:01 Alessio Parry MD is Attending Physician. jmm 23:21 Patient has correct armband on for positive identification. Bed in low position. Call ll1 light in reach. Side rails up X2. Adult w/ patient. information systems auditor on. Pulse ox on. NIBP on. 23:24 Inserted saline lock: 20 gauge in left antecubital area, using aseptic technique. Blood jb5 collected. 23:26 Troponin (emerg Dept Use Only) Sent. jb5 23:26 PT-INR Sent. jb5 23:26 NT PRO-BNP Sent. jb5 23:26 Magnesium Sent. jb5 23:26 LFT's Sent. jb5 23:26 CBC with Diff Sent. jb5 23:26 Basic Metabolic Panel Sent. jb5 23:58 XRAY Chest (1 view) In Process Unspecified. EDMS 06/17 00:07 Warm blanket given. jb5 00:10 Inserted 21g butterfly used for another blood draw, patients iv would not draw blood. jb5 Butterfly needle inserted with blood return, 2x2 was used at insertion site and coban was holding it in place. 01:04 Greg Sepulveda MD is Hospitalizing Provider. m 01:39 No provider procedures requiring assistance completed. Patient admitted, IV remains in mg2 place. 01:55 Oxygen administration via nasal cannula \T\ 2L/min Response to oxygen therapy: symptoms rr5 improved. Administered Medications: 06/16 23:35 Drug: fentaNYL (PF) 50 mcg {Note: RASS -1.} Route: IVP; Site: left antecubital; ll1 06/17 01:36 Follow up: Response: No adverse reaction; RASS: Alert and Calm (0) mg2 06/16 23:35 Drug: Zofran (Ondansetron) 4 mg Route: IVP; Site: left antecubital; ll1 06/17 01:36 Follow up: Response: No adverse reaction mg2 00:40 Drug: Aspirin Chewable Tablet 324 mg Route: PO; rr5 01:34 Follow up: Response: No adverse reaction mg2 00:45 Drug: Magnesium Sulfate 1 grams Route: IVPB; Infused Over: 1 hrs; Site: left rr5 antecubital; 01:56 Follow up: Response: No adverse reaction; IV Status: Completed infusion; IV Intake: rr5 100ml Intake: 01:56 IV: 100ml; Total: 100ml. rr5 00:50 voided 200 rr5 Output: 00:50 Other: 1; Total: 0ml. rr5 00:50 voided 200 rr5 Outcome: 01:04 Decision to Hospitalize by Provider. m 01:54 Admitted to Med/surg accompanied by tech, via stretcher, room 207, with oxygen, with rr5 chart, Report called to fabrice 01:54 Condition: stable 01:54 Instructed on the need for admit. 01:58 Patient left the ED. rr5 Signatures: Dispatcher [employer] EDMS Pedro Wall PA PA jmm Broussard, Jennifer jb5 Brian Carrillo RN RN mg2 Oleksandr Monae RN RN rr5 Gustabo Montalvo RN RN ll1 Corrections: (The following items were deleted from the chart) 01:40 01:39 BP 173 / 80; Pulse 80bpm; Resp 18bpm; Pulse Ox 99% RA; mg2 mg2
[2019-06-18] MEDS ORDERED: guaiFENesin 100 MG/5 ML UCUP PO PRN (01:07)
[2019-06-18] MEDS ORDERED: LORAZEPAM 0.5 MG TABLET PO PRN (01:07)
[2019-06-18] MEDS ORDERED: Oxycodone HCl/Acetaminophen 1 TAB TAB PO PRN (01:07)
[2019-06-18] MEDS: POTASSIUM 25 MEQ EFFERV TAB PO SCH ×2 (02:48→10:20)
[2019-06-18] MEDS: METOLAZONE 5 MG TABLET PO SCH ×2 (02:49→10:20)
--- NOTE | 2019-06-18 03:05 | HP ---
Date of Admission: 06/18/2019 Presenting Complaint: Substernal chest pressure, worsening shortness of breath. History Of Present Illness: Ms. Christy Priest is a 64-year-old female with past medical hist ory of hypertension, diabetes mellitus, CKD stage 4, hyperlipidemia, hypertension, coronary artery di sease status post CABG in the past, with subsequent PCIs, history of chronic body swelling, history o f diastolic CHF, last echo from 6 months ago shows EF of 50%. Patient presented because of worsening shortness of breath since the last 1 day with associated substernal chest pressure since the last 3 hours prior to presentation, chest pressure is nonradiating. The patient denies any associated nause a, vomiting, or fever. On arrival in the ED, she was noted to be mildly dyspneic. With O2 saturatio n of 82% on room air, she was started on nasal cannula O2 as well as given IV Lasix and she feels bet ter now. Patient reports worsening body swelling since the last 2 weeks despite adherence with furos emide 80 mg t.i.d. at home. She also noticed some oozing from her lower extremity. She states she h ad a procedure done for lower extremity edema at [facility] 2 weeks ago, but the procedure w as not completed due to CKD status. Her baseline creatinine has been ranging from 2.2-2.3. Past Medical History: Hypertension; diabetes mellitus; CKD stage 4; COPD; diastolic CHF; coronary ar ilda disease; status post CABG; history of uterine cancer, status post hysterectomy; cholecystectomy; presumed lower extremity angiogram 2 weeks ago. Home Medications: Include Neurontin, hydralazine, insulin, Lasix, Plavix, unsure of doses. Allergies: AUGMENTIN, BASIL, MORPHINE, NITROGLYCERIN, TRAMADOL, TRAZODONE, VANCOMYCIN. Social History: Patient smokes. She states she quit smoking about 3 weeks ago. She previously smok ed half a pack a day. No history of alcohol or illicit drug use. She resides in a community with th e family, especially daughter. Review of Systems: Patient is a very poor historian, but she denies every other symptoms x14, which was reviewed. Physical Examination: Vital Signs: On current initial presentation, blood pressure 167/95, current blood pressure of 138/8 1, pulse of 83, respiratory rate of 18, temperature 98.3, O2 saturation currently at 96% on 2 L nasal cannula. General: Elderly middle-aged female, appear older looking, drowsy, but easily arousable, on nasal cannula O2. Head: Atraumatic, normocephalic skin. Moist oral mucosa. Neck: No JVD. No carotid bruit. Respiratory: Mild bibasilar crepitations. Cardiovascular: S1, S2. Rate and rhythm regular. GI: Obese abdomen with edematous abdominal wall. No CVA tenderness bilaterally. Bowel sounds posit moo. Extremities: 4+ pedal edema extending up to the lower abdomen. Erythema of the foot area although A CE dressing also noted in situ. Neurologic: Patient is awake, conversant. No neurological focal motor deficit. Laboratory Data: EKG shows normal sinus rhythm, intermittent T-wave inversion, but no significant ST -segment changes. Rate of 84 beats per minute. Chest x-ray shows bilateral pulmonary congestive carlos nges. WBC 7.5, platelet 171, hemoglobin 10, neutrophils 72%. INR 1.2, potassium 3.5, sodium 136, BU N 66, creatinine 2.26, magnesium 1.6. AST, ALT normal, alkaline phosphatase 136, troponin 0.05. Pro BNP of . Impression: 1.Atypical chest pain. 2.Acute diastolic congestive heart failure exacerbation. 3.Chronic fluid overload with lower extremity edema. 4.Diabetes mellitus. 5.Chronic kidney disease. 6.Hypokalemia. 7.Hypomagnesemia. 8.Presumed lower extremity cellulitis. Plan: We will admit patient to inpatient status. We will manage patient for the followin.CHF exacerbation. We will start patient on IV Lasix. The patient previously on 80 mg p.o. t.i.d. with metolazone every other day. We switched to IV Lasix 80 mg q.12 and increase metolazone to 5 mg b.i.d. to augment increased diuresis. Follow daily weights. Monitor intake and output. Possibilit y of patient not being adherent to fluid restriction at home considered. We limit fluid intake to le ss than 1.3 L per day. 2.Atypical chest pain. Do serial set of cardiac enzymes. 3.Hypertension. Resume home regimen. Follow with increased diuresis. 4.Hypomagnesemia. We will replete. Start magnesium oxide daily. 5.Hypokalemia. We will also replete. 6.DVT prophylaxis. Subcutaneous Lovenox. 7.Advanced directives. Patient is full code. 8.Diabetes mellitus with insulin sliding scale as tolerated. Continue home regimen. 9.CKD stage IV. Monitor creatinine. If worsening increase, we will consult Nephrology team to foll ow in a.m. Total time spent is greater than 65 minutes. EO/MODL Voice ID: [id number]
[2019-06-18 04:34] LABS: Magnesium 1.9 mg/dL (1.8-2.4); Troponin I 0.06 ng/mL (0.0-0.045)
[2019-06-18 04:52] VITALS: BMI 32.8
[2019-06-18] MEDS: INSULIN -REGULAR HUMAN 50 UNIT/0.5 ML ML SQ SCH ×2 (07:30→11:30)
--- NOTE | 2019-06-18 08:42 | EKG ---
Test Date: 2019-06-17 Test Time: 22:50:21 Mail Carrier And Clerk: JANETT MEASUREMENT RESULTS: Intervals: Rate: 82 ND: 218 QRSD: 106 QT: 404 QTc: 472 [place]: P: 90 ND: 218 QRS: 153 T: 113 INTERPRETIVE STATEMENTS: Suspect arm lead reversal, interpretation assumes no reversal Sinus rhythm with 1st degree AV block Right axis deviation Low voltage QRS Cannot rule out Anteroseptal infarct, age undetermined Abnormal ECG Compared to ECG 02/17/2019 16:05:23 First degree AV block now present Right-axis deviation now present Low QRS voltage now present Incomplete right bundle-branch block no longer present Myocardial infarct finding still present Electronically Signed On 06-18-19 08:42:16 CDT by Alvaro Go
--- NOTE | 2019-06-18 08:58 | RAD REPORT ---
EXAM DESCRIPTION: RAD - Chest Pa And Lat (2 Views) - 06/18/2019 8:49 am CLINICAL HISTORY: CHF Chest pain. COMPARISON: Chest Single View dated 06/17/2019; Chest Single View dated 02/20/2019; Chest Single View dated 02/17/2019; Chest Pa And Lat (2 Views) dated 01/28/2019 FINDINGS: Chronic right lower lung pleural and parenchymal opacification appears essentially stable since 01/2019 study. Mild interstitial pulmonary edema is seen. The heart is moderately enlarged with changes of a prior CABG noted. No displaced fractures. Sternotomy wires seen. IMPRESSION: Mild to moderate CHF.
[2019-06-18] MEDS ORDERED: NIFEDIPINE XL 60 MG TABLET PO SCH (09:00)
[2019-06-18] MEDS ORDERED: ENOXAPARIN 40 MG/0.4 ML SQ SCH (09:00)
[2019-06-18] MEDS ORDERED: CLOPIDOGREL 75 MG TABLET PO SCH (09:00)
[2019-06-18] MEDS ORDERED: FAMOTIDINE 20 MG TAB PO SCH ×2 (09:00)
[2019-06-18] MEDS ORDERED: ISOSORBIDE MONO SR 30 MG TAB PO SCH (09:00)
[2019-06-18] MEDS ORDERED: ATORVASTATIN 40 MG TAB PO SCH (09:00)
[2019-06-18] MEDS ORDERED: FUROSEMIDE 40 MG/4 ML VIAL IV SCH ×2 (09:00)
[2019-06-18] MEDS ORDERED: NICOTINE 21 MG/PAT TD SCH (09:00)
[2019-06-18] MEDS ORDERED: carvediloL 12.5 MG TAB PO SCH (09:00)
[2019-06-18] MEDS ORDERED: DULERA 100/5 (MOMETASONE/FORMOTEROL) INHALER IH SCH (09:00)
[2019-06-18] MEDS ORDERED: ENOXAPARIN 30 MG/0.3 ML SQ SCH (09:00)
[2019-06-18] MEDS ORDERED: NITROGLYCERIN 0.2 MG/HR (5 MG) PATCH TD SCH (09:00)
[2019-06-18] MEDS ORDERED: INSULIN GLARGINE 100 UNITS/ML SQ SCH (09:00)
[2019-06-18] MEDS ORDERED: HOME MED 1 EA UNK (Insulin Detemir [Levemir] 10 UNITS) SQ SCH (09:00)
--- NOTE | 2019-06-18 09:02 | RAD REPORT ---
EXAM DESCRIPTION: RAD - Chest Single View - 06/17/2019 11:58 pm CLINICAL HISTORY: CHEST PAIN Chest pain. COMPARISON: Chest Single View dated 02/20/2019; Chest Single View dated 02/17/2019; Chest Pa And Lat (2 Views) dated 01/28/2019; Chest Single View dated 01/27/2019 FINDINGS: Portable technique limits examination quality. Mild interstitial pulmonary edema is seen. Chronic right pleural and parenchymal opacification appear s stable since comparative examinations. The heart is mildly enlarged in size with sternotomy wires p resent. No displaced fractures. IMPRESSION: Mild CHF.
[2019-06-18] MEDS: GABAPENTIN 100 MG CAP PO SCH ×2 (10:20→14:00)
--- NOTE | 2019-06-18 11:28 | P.CNS ---
Date of Consult: 06/18/19 Reason for Consult: CKD , fluid overload Chief Complaint: SOB History of Present Illness: a 64-year-old AA woman with past medical history of hypertension, diabetes mellitus, CKD stage 4 baseline Cr ~2.2 , CAD S/P CABG, CHF on lasix 80mg po tid and metolazone 5mg Qother day presented with SOB and hypoxia with mild chest discomfort she denied , nausea , vomiting , diarrhea or constipation her symptoms started 1 months ago , stated she is adherent with lasix and fluid restriction Physical exam general: AAOX3, NAD , Neck; Supple, No elevated JVD hear: RRR, normal S1,2 no murmur or rub Chest: decreased aie entry B/L Abdomen: Soft , Nt Extremities edema , with oozing A/P CKD IV with nephrotic range proteinuria Cr stable previous serology w/u -ve low UO , will increase lasix and add metolazone HTN elevated , cont home meds cont diuretics anasarca due to CHF +/- CKD and hypoalbuminemia lost 10lbs since yesterday can be discharged on lasix 80mg tid and metolazone bid fluid restriction DM as per primary Allergies morphine Allergy (Severe, Verified 06/18/19 04:00) Anaphylaxis vancomycin Allergy (Intermediate, Verified 06/18/19 03:59) Nausea/Vomiting basil Allergy (Verified 06/18/19 03:59) Nausea/Vomiting tramadol Allergy (Verified 06/18/19 03:59) Nausea/Vomiting trazodone Allergy (Verified 06/18/19 03:59) Nausea/Vomiting nitroglycerin Adverse Reaction (Mild, Verified 06/18/19 04:00) Nausea/Vomiting - Past Medical/Surgical History Diabetic: Yes -: COPD -: Hypertension -: CAD, CABG x4 vessels (August 2017) -: Diabetes mellitus type 2, insulin-dependent -: Chronic diastolic CHF -: Uterine cancer status post hysterectomy -: Chronic renal disease, stage IV -: 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 Her son lives with her. She has 3 children. - Family History Father Medical History: Heart disease, Hypertension, Stroke, Cancer Mother Medical History: GI disease Sister Medical History: Lung disease, Diabetes Brother Medical History: Heart disease, Hypertension, Diabetes Notes: - Social History Smoking Status: Current some day smoker Alcohol use: No CD- Drugs: No Caffeine use: Yes Place of Residence: Home Physical Examination Temp Pulse Resp BP Pulse Ox 97.9 F 68 18 191/90 H 98 06/18/19 08:00 06/18/19 10:25 06/18/19 08:00 06/18/19 10:25 06/18/19 08:00 Laboratory Data (last 24 hrs) 06/18/19 00:02: PT 14.7 H, INR 1.25 06/18/19 00:02: WBC 7.5, Hgb 10.0 L, Hct 32.1 L, Plt Count 171 06/18/19 00:02: Sodium 136, Potassium 3.5, BUN 66 H, Creatinine 2.26 H, Glucose 78, Magnesium 1.6 L, Total Bilirubin 0.7, AST 16, ALT 7 L, Alkaline Phosphatase 136 H
[2019-06-18 11:49] VITALS: O2SAT 97
--- NOTE | 2019-06-18 12:13 | P.DS ---
Admission Date: 06/18/19 Discharge Date: 06/18/19 Primary Care Provider: [facility]-Dr. Fernando Disposition: DC HOME/HOME HEALTH CARE Discharge Condition: GOOD Reason for Admission: SOB Consultations: Nephrology-Dr. Khan Procedures: Follow up CXR: FINDINGS: Chronic right lower lung pleural and parenchymal opacification appears essentially stable since 01/2019 study. Mild interstitial pulmonary edema is seen. The heart is moderately enlarged with changes of a prior CABG noted. No displaced fractures. Sternotomy wires seen. IMPRESSION: Mild to moderate CHF. Medical Problem List: Atypical chest pain, shortness of breath secondary to acute on chronic diastolic CHF on chronic oxygen Pulmonary and lower extremity edema related to above Chronic kidney disease stage 4 with hypokalemia and hypo magnesium Diabetes mellitus type 2 insulin-dependent Hypertension Hyperlipidemia Chronic pain GERD COPD on chronic oxygen Brief History of Present Illness: 64-year-old female with history of hypertension, diabetes, CAD stage IV, hyperlipidemia, hypertension, and CAD. Patient presented with chest pain and shortness of breath. Chest x-ray showed pulmonary edema. Acute on chronic diastolic CHF identified. Patient admitted for further evaluation and diuresis. Hospital Course: Patient presented with chest pain and shortness of breath secondary to acute on chronic diastolic CHF exacerbation. Patient also has stage IV chronic kidney disease. This has remained stable. Patient was diuresed. Medications were adjusted. Patient had slight elevation in troponin but this was related to demand. Nephrology was consulted and further made changes. At discharge she is back to her baseline. Patient will continue with home oxygen to maintain sats above 93%. Patient will continue with a 1500 cc per day fluid restriction and low-salt diet. Recommendation is to monitor her weight daily. If her weight increases by more than 5 lb she is to contact nephrology for further adjustment in medication. Medications have been adjusted and she will continue with Lasix 80 mg 1 pill 3 times a day and metolazone 5 mg twice daily. Recommend to recheck lab-BMP in 1 week to follow up her progress. Future medications will need to be renally dose. Recommend no nonsteroidal anti- inflammatories due to her kidney disease. Patient with hypertension. Patient will continue with her current medications. Recommendation is to maintain blood pressures less 150/80. Further adjustment can be done by her PCP. Patient with diabetes mellitus type 2. She is insulin dependent. Patient will continue with her current regimen. Recommendation is to maintain blood sugars less 140 fasting and less than 200 after meals. Further adjustment can be done by her PCP. Patient with hyperlipidemia. At discharge she will continue with her medication. Patient with chronic pain. Patient may continue with her medication. Further adjustment can be done by her PCP. Patient with COPD on chronic home oxygen. At discharge she will continue with her medication. Patient will also continue with home oxygen. Vital Signs/Physical Exam: Temp Pulse Resp BP Pulse Ox 97.9 F 68 18 191/90 H 98 06/18/19 08:00 06/18/19 10:25 06/18/19 08:00 06/18/19 10:25 06/18/19 08:00 General: Alert, In no apparent distress, Oriented x3, Cooperative HEENT: Atraumatic Neck: Supple Respiratory: Crackles/rales (Mild crackles to the bases but good air movement noted. No significant respiratory distress.) Cardiovascular: Normal pulses, Regular rate/rhythm Gastrointestinal: Normal bowel sounds, Soft and benign, Non-distended Integumentary: Tenderness/swelling (Edema to the lower extremity. No erythema noted.) Neurological: Normal speech, Normal strength at 5/5 x4 extr, Normal tone, Normal affect Laboratory Data at Discharge: WBC 7.5 K/uL (4.3-10.9) 06/18/19 00:02 Hgb 10.0 g/dL (12.0-15.0) L 06/18/19 00:02 Hct 32.1 % (36.0-45.0) L 06/18/19 00:02 Plt Count 171 K/uL (152-406) 06/18/19 00:02 PT 14.7 SECONDS (9.5-12.5) H 06/18/19 00:02 INR 1.25 06/18/19 00:02 Sodium 136 mmol/L (136-145) 06/18/19 00:02 Potassium 3.5 mmol/L (3.5-5.1) 06/18/19 00:02 BUN 66 mg/dL (7-18) H 06/18/19 00:02 Creatinine 2.26 mg/dL (0.55-1.3) H 06/18/19 00:02 Glucose 78 mg/dL (74-106) 06/18/19 00:02 Magnesium 1.9 mg/dL (1.8-2.4) 06/18/19 03:56 Total Bilirubin 0.7 mg/dL (0.2-1.0) 06/18/19 00:02 AST 16 U/L (15-37) 06/18/19 00:02 ALT 7 U/L (12-78) L 06/18/19 00:02 Alkaline Phosphatase 136 U/L (45-117) H 06/18/19 00:02 Troponin I 0.08 ng/mL (0.0-0.045) H 06/18/19 08:19 Home Medications: Allopurinol 100 mg PO BID #60 tablet 06/18/19 Aspirin 81 mg PO DAILY #90 tab.chew 06/18/19 Atorvastatin Calcium [Lipitor] 40 mg PO DAILY #30 tablet 06/18/19 Carvedilol [Coreg] 12.5 mg PO BID #60 tablet 06/18/19 Clopidogrel Bisulfate [Plavix*] 75 mg PO DAILY #60 tablet 06/18/19 Codeine/APAP [Tylenol #3*] 1 tab PO Q6HR 06/18/19 Furosemide [Lasix] 80 mg PO TID #90 tablet 06/18/19 Gabapentin 1 tab PO TID #90 capsule 06/18/19 Insulin Detemir [Levemir Flextouch] 10 units SQ DAILY #1 insuln.pen 06/18/19 Isosorb Dinit/Hydralazine HCl [Bidil Tablet] 30 mg PO DAILY #30 tablet 06/18/19 Nifedipine [Nifedipine ER] 60 mg PO DAILY #30 tablet.er 06/18/19 metOLazone [Zaroxolyn*] 5 mg PO BID #60 tab 06/18/19 New Medications: Allopurinol 100 mg PO BID #60 tablet Aspirin 81 mg PO DAILY #90 tab.chew Atorvastatin Calcium [Lipitor] 40 mg PO DAILY #30 tablet Carvedilol [Coreg] 12.5 mg PO BID #60 tablet Clopidogrel Bisulfate [Plavix*] 75 mg PO DAILY #60 tablet Furosemide [Lasix] 80 mg PO TID #90 tablet Gabapentin 1 tab PO TID #90 capsule Insulin Detemir [Levemir Flextouch] 10 units SQ DAILY #1 insuln.pen Isosorb Dinit/Hydralazine HCl [Bidil Tablet] 30 mg PO DAILY #30 tablet metOLazone [Zaroxolyn*] 5 mg PO BID #60 tab Nifedipine [Nifedipine ER] 60 mg PO DAILY #30 tablet.er Patient Discharge Instructions: 1. Follow up with PCP in 1 week to follow up this hospitalization. 2. Patient presented with chest pain and shortness of breath secondary to acute on chronic diastolic CHF exacerbation. Patient also has stage IV chronic kidney disease. This has remained stable. Patient was diuresed. Medications were adjusted. Patient had slight elevation in troponin but this was related to demand. Nephrology was consulted and further made changes. At discharge she is back to her baseline. Patient will continue with home oxygen to maintain sats above 93%. Patient will continue with a 1500 cc per day fluid restriction and low-salt diet. Recommendation is to monitor her weight daily. If her weight increases by more than 5 lb she is to contact nephrology for further adjustment in medication. Medications have been adjusted and she will continue with Lasix 80 mg 1 pill 3 times a day and metolazone 5 mg twice daily. Recommend to recheck lab-BMP in 1 week to follow up her progress. Future medications will need to be renally dose. Recommend no nonsteroidal anti-inflammatories due to her kidney disease. 3. Patient with hypertension. Patient will continue with her current medications. Recommendation is to maintain blood pressures less 150/80. Further adjustment can be done by her PCP. 4. Patient with diabetes mellitus type 2. She is insulin dependent. Patient will continue with her current regimen. Recommendation is to maintain blood sugars less 140 fasting and less than 200 after meals. Further adjustment can be done by her PCP. 5. Patient with hyperlipidemia. At discharge she will continue with her medication. 6. Patient with chronic pain. Patient may continue with her medication. Further adjustment can be done by her PCP. 7. Patient with COPD on chronic home oxygen. At discharge she will continue with her medication. Patient will also continue with home oxygen. Diet: Renal Activity: Fall precautions Time spent managing pt's care (in minutes): 55
[2019-06-18 14:33] VITALS: BP 187/97; TEMP 97
[2019-06-18] MEDS ORDERED: GLUCERNA SHAKE 237 ML CAN PO SCH (21:00)
[2019-06-19] MEDS ORDERED: Magnesium Sulfate 2gm IVPB 2 G/50 ML BAG IV ONE (01:07)
== END 2019-06-18 15:04 | disposition home health service (06) ==
LOC: ER 22:40 → ERHOLD 06-18 01:06 → INTOOBSV 06-18 01:06 → 2ND 06-18 01:54
PROVIDERS: ADMIT Internal Medicine; ATTEND Family Medicine
DX: I13.0 Hypertensive heart and chronic kidney disease with heart failure and stage 1 through stage 4 chronic kidney disease, or unspecified chronic kidney disease (principal); I50.33 Acute on chronic diastolic (congestive) heart failure; N18.4 Chronic kidney disease, stage 4 (severe); E11.22 Type 2 diabetes mellitus with diabetic chronic kidney disease; J44.9 Chronic obstructive pulmonary disease, unspecified; E87.6 Hypokalemia; I25.10 Atherosclerotic heart disease of native coronary artery without angina pectoris; E83.42 Hypomagnesemia; E78.5 Hyperlipidemia, unspecified; G89.29 Other chronic pain; K21.9 Gastro-esophageal reflux disease without esophagitis; F17.210 Nicotine dependence, cigarettes, uncomplicated; Z95.1 Presence of aortocoronary bypass graft; Z99.81 Dependence on supplemental oxygen; Z79.4 Long term (current) use of insulin; Z79.82 Long term (current) use of aspirin; Z79.899 Other long term (current) drug therapy; Z82.49 Family history of ischemic heart disease and other diseases of the circulatory system; Z82.3 Family history of stroke; Z83.3 Family history of diabetes mellitus; Z80.9 Family history of malignant neoplasm, unspecified
CPT/HCPCS: 96365; 93005; 85025; 36415; 83735; 82947 ×2; 84484 ×2; 71045; 71046; 96375; 99285; J1940; J1650; J3010; J3475; J7606; J2405 ×2; G0378 ×2

== ENCOUNTER 2019-07-06 17:19 | Inpatient (IN) | payer MEDICAID ==
--- OUTSIDE RECORDS SUMMARY | 2019-07-06 17:35 | XMS REPORT ---
:1955 Author Organization [facility] t Address [address] [place] [address] Care Team Providers Name Role Phone PRABHJOT DREW Unavailable Unavailable OLAYINKA Unavailable Unavailable DAX, LISA Unavailable Unavailable MAGGIE MCCONNELL Unavailable Unavailable VADIM RAlfred Unavailable Unavailable Problems This patient has no known problems. Allergies, Adverse Reactions, Alerts This patient has no known allergies or adverse reactions. Medications This patient has no known medications. Results Test Description Test Time Test Comments Text Results Atomic Results Result Comments POCT-GLUCOSE METER 2017-09-05 17:13:00 Test Item Value Reference Range Comments POC-GLUCOSE METER (BEAKER) (test 220 mg/dL 70-110 TESTED AT [facility] [address] [facility] code = 1538) [facility] [address] BASIC METABOLIC [id number] 15:47:00 Test Item Value Reference Range Comments SODIUM (BEAKER) (test 135 meq/L 136-145 code = 381) POTASSIUM (BEAKER) (test 4.8 meq/L 3.5-5.1 code = 379) CHLORIDE (BEAKER) (test 102 meq/L 98-107 code = 382) CO2 (BEAKER) (test code = 25 meq/L 22-29 355) BLOOD UREA NITROGEN 51 mg/dL 7-21 (BEAKER) (test code = 354) CREATININE (BEAKER) (test 1.99 mg/dL 0.57-1.25 code = 358) GLUCOSE RANDOM (BEAKER) 201 mg/dL 70-105 (test code = 652) CALCIUM (BEAKER) (test 8.8 mg/dL 8.4-10.2 code = 697) EGFR (BEAKER) (test code 25 mL/min/1.73 sq m EST IMATED GFR IS NOT = 1092) ACCURATE CREA TININE CLEARANCE IN PRE DICTING GLOMERULAR FILTR ATION RATE. ESTIMATED GFR IS NOT APPLICABLE F OR DIALYSIS PATIENT S. POCT-GLUCOSE [id number] 11:30:00 Test Item Value Reference Range Comments POC-GLUCOSE METER (BEAKER) 268 mg/dL 70-110 TESTE D AT [facility] [address] [facility] (test code = 1538) [place] [address]30 POCT-GLUCOSE [id number] 07:08:00 Test Item Value Reference Range Comments POC-GLUCOSE METER (BEAKER) 208 mg/dL 70-110 TESTE D AT [place] [id number] [facility] (test code = 1538) [place] [address] CALCIUM, [id number] 06:47:00 Test Item Value Reference Range Comments CALCIUM IONIZED (BEAKER) (test code = 698) 1.11 mmol/L 1.12- 1.27 PH, BLOOD (BEAKER) (test code = 1810) 7.40 BASIC METABOLIC [id number] 06:40:00 Test Item Value Reference Range Comments SODIUM (BEAKER) (test 134 meq/L 136-145 code = 381) POTASSIUM (BEAKER) (test 4.9 meq/L 3.5-5.1 code = 379) CHLORIDE (BEAKER) (test 103 meq/L 98-107 code = 382) CO2 (BEAKER) (test code = 24 meq/L 22-29 355) BLOOD UREA NITROGEN 53 mg/dL 7-21 (BEAKER) (test code = 354) CREATININE (BEAKER) (test 2.02 mg/dL 0.57-1.25 code = 358) GLUCOSE RANDOM (BEAKER) 186 mg/dL 70-105 (test code = 652) CALCIUM (BEAKER) (test 9.1 mg/dL 8.4-10.2 code = 697) EGFR (BEAKER) (test code 25 mL/min/1.73 sq m EST IMATED GFR IS NOT = 1092) ACCURATE CREA TININE CLEARANCE IN PRE DICTING GLOMERULAR FILTR ATION RATE. ESTIMATED GFR IS NOT APPLICABLE F OR DIALYSIS PATIENT S. [id number] 06:33:00 Test Item Value Reference Range Comments PHOSPHORUS (BEAKER) (test code = 604) 5.1 mg/dL 2.3-4.7 [id number] 06:33:00 Test Item Value Reference Range Comments MAGNESIUM (BEAKER) (test code = 627) 2.0 mg/dL 1.6-2.6 LACTIC ACID, VENOUS, WHOLE [id number] 06:02:00 Test Item Value Reference Range Comments LACTATE BLOOD VENOUS (2) (BEAKER) (test code = 0.8 mmol/L 0 .5-2.2 2872) Effective 08/02/2015: Units/Reference Range ChangeNew: 0.5-2.2 mmol/L Previous: 5-20 mg/dLCBC W/PLT COUNT & AUTO [id number] 05:54:00 Test Item Value Reference Range Comments WHITE BLOOD CELL COUNT (BEAKER) (test code = 7.1 K/ L 3.5 -10.5 775) RED BLOOD CELL COUNT (BEAKER) (test code = 761) 3.68 M/ L 3.93-5.22 HEMOGLOBIN (BEAKER) (test code = 410) 9.0 GM/DL 11.2-15.7 HEMATOCRIT (BEAKER) (test code = 411) 29.6 % 34.1-44.9 MEAN CORPUSCULAR VOLUME (BEAKER) (test code = 80.4 fL 79 .4-94.8 753) MEAN CORPUSCULAR HEMOGLOBIN (BEAKER) (test code 24.5 pg 25.6-32.2 = 751) MEAN CORPUSCULAR HEMOGLOBIN CONC (BEAKER) (test 30.4 GM/DL 32.2-35.5 code = 752) RED CELL DISTRIBUTION WIDTH (BEAKER) (test code 16.5 % 11.7-14.4 = 412) PLATELET COUNT (BEAKER) (test code = 756) 215 K/CU MM 150-45 0 MEAN PLATELET VOLUME (BEAKER) (test code = 754) 9.5 fL 9.4-12.3 NUCLEATED RED BLOOD CELLS (BEAKER) (test code = 0 /100 WBC 0-0 413) NEUTROPHILS RELATIVE PERCENT (BEAKER) (test code 42 % = 429) LYMPHOCYTES RELATIVE PERCENT (BEAKER) (test code 46 % = 430) MONOCYTES RELATIVE PERCENT (BEAKER) (test code = 6 % 431) EOSINOPHILS RELATIVE PERCENT (BEAKER) (test code 5 % = 432) BASOPHILS RELATIVE PERCENT (BEAKER) (test code = 1 % 437) NEUTROPHILS ABSOLUTE COUNT (BEAKER) (test code = 2.96 K/ L 1.56-6.13 670) LYMPHOCYTES ABSOLUTE COUNT (BEAKER) (test code = 3.27 K/ L 1.18-3.74 414) MONOCYTES ABSOLUTE COUNT (BEAKER) (test code = 0.41 K/ L 0 .24-0.36 415) EOSINOPHILS ABSOLUTE COUNT (BEAKER) (test code = 0.34 K/ L 0.04-0.36 416) BASOPHILS ABSOLUTE COUNT (BEAKER) (test code = 0.08 K/ L 0 .01-0.08 417) IMMATURE GRANULOCYTES-RELATIVE PERCENT (BEAKER) 0 % 0-1 (test code = 2801) POCT-GLUCOSE [id number] 21:30:00 Test Item Value Reference Range Comments POC-GLUCOSE METER (BEAKER) 248 mg/dL 70-110 TESTE D AT [place] [id number] [facility] (test code = 1538) [facility] [address] RAD, [id number] 21:22:00Reason for exam:->fall, tailbone painFINAL REPORT RAD, [...] Signed: Juan Francisco Talbot MDReport Verified Date/Time: 09/04/2017 21:22:03 Reading Location: [facility] [id number] Transitional Reading Room POCT-GLUCOSE [id number] 17:37:00 Test Item Value Reference Range Comments POC-GLUCOSE METER (BEAKER) 222 mg/dL 70-110 TESTE D AT [address] (test code = 1538) [place] [address] POCT-GLUCOSE [id number] 13:55:00 Test Item Value Reference Range Comments POC-GLUCOSE METER (BEAKER) 194 mg/dL 70-110 TESTE D AT [address] (test code = 1538) [place] [address] POCT-GLUCOSE [id number] 12:34:00 Test Item Value Reference Range Comments POC-GLUCOSE METER (BEAKER) 229 mg/dL 70-110 TESTE D AT [address] (test code = 1538) [place] [address] POCT-GLUCOSE [id number] 08:00:00 Test Item Value Reference Range Comments POC-GLUCOSE METER (BEAKER) 159 mg/dL 70-110 TESTE D AT [address] (test code = 1538) [place] [address] CALCIUM, [id number] 06:00:00 Test Item Value Reference Range Comments CALCIUM IONIZED (BEAKER) (test code = 698) 1.05 mmol/L 1.12- 1.27 PH, BLOOD (BEAKER) (test code = 1810) 7.45 [id number] 05:59:00 Test Item Value Reference Range Comments PHOSPHORUS (BEAKER) (test code = 604) 4.8 mg/dL 2.3-4.7 [id number] 05:59:00 Test Item Value Reference Range Comments MAGNESIUM (BEAKER) (test code = 627) 2.0 mg/dL 1.6-2.6 BASIC METABOLIC [id number] 05:59:00 Test Item Value Reference Range Comments SODIUM (BEAKER) (test 134 meq/L 136-145 code = 381) POTASSIUM (BEAKER) (test 4.4 meq/L 3.5-5.1 code = 379) CHLORIDE (BEAKER) (test 103 meq/L 98-107 code = 382) CO2 (BEAKER) (test code = 23 meq/L 22-29 355) BLOOD UREA NITROGEN 49 mg/dL 7-21 (BEAKER) (test code = 354) CREATININE (BEAKER) (test 1.69 mg/dL 0.57-1.25 code = 358) GLUCOSE RANDOM (BEAKER) 138 mg/dL 70-105 (test code = 652) CALCIUM (BEAKER) (test 8.7 mg/dL 8.4-10.2 code = 697) EGFR (BEAKER) (test code 31 mL/min/1.73 sq m EST IMATED GFR IS NOT = 1092) ACCURATE CREA TININE CLEARANCE IN PRE DICTING GLOMERULAR FILTR ATION RATE. ESTIMATED GFR IS NOT APPLICABLE F OR DIALYSIS PATIENT S. CREATINE KINASE (CK)2017-09-04 05:59:00 Test Item Value Reference Range Comments CREATINE KINASE TOTAL (BEAKER) (test code = 380) 45 U/L 29-200 CBC W/PLT COUNT & AUTO [id number] 05:32:00 Test Item Value Reference Range Comments WHITE BLOOD CELL COUNT (BEAKER) (test code = 6.1 K/ L 3.5 -10.5 775) RED BLOOD CELL COUNT (BEAKER) (test code = 761) 3.69 M/ L 3.93-5.22 HEMOGLOBIN (BEAKER) (test code = 410) 8.8 GM/DL 11.2-15.7 HEMATOCRIT (BEAKER) (test code = 411) 29.3 % 34.1-44.9 MEAN CORPUSCULAR VOLUME (BEAKER) (test code = 79.4 fL 79 .4-94.8 753) MEAN CORPUSCULAR HEMOGLOBIN (BEAKER) (test code 23.8 pg 25.6-32.2 = 751) MEAN CORPUSCULAR HEMOGLOBIN CONC (BEAKER) (test 30.0 GM/DL 32.2-35.5 code = 752) RED CELL DISTRIBUTION WIDTH (BEAKER) (test code 16.3 % 11.7-14.4 = 412) PLATELET COUNT (BEAKER) (test code = 756) 219 K/CU MM 150-45 0 MEAN PLATELET VOLUME (BEAKER) (test code = 754) 9.4 fL 9.4-12.3 NUCLEATED RED BLOOD CELLS (BEAKER) (test code = 0 /100 WBC 0-0 413) NEUTROPHILS RELATIVE PERCENT (BEAKER) (test code 44 % = 429) LYMPHOCYTES RELATIVE PERCENT (BEAKER) (test code 43 % = 430) MONOCYTES RELATIVE PERCENT (BEAKER) (test code = 6 % 431) EOSINOPHILS RELATIVE PERCENT (BEAKER) (test code 6 % = 432) BASOPHILS RELATIVE PERCENT (BEAKER) (test code = 1 % 437) NEUTROPHILS ABSOLUTE COUNT (BEAKER) (test code = 2.67 K/ L 1.56-6.13 670) LYMPHOCYTES ABSOLUTE COUNT (BEAKER) (test code = 2.66 K/ L 1.18-3.74 414) MONOCYTES ABSOLUTE COUNT (BEAKER) (test code = 0.38 K/ L 0 .24-0.36 415) EOSINOPHILS ABSOLUTE COUNT (BEAKER) (test code = 0.37 K/ L 0.04-0.36 416) BASOPHILS ABSOLUTE COUNT (BEAKER) (test code = 0.05 K/ L 0 .01-0.08 417) IMMATURE GRANULOCYTES-RELATIVE PERCENT (BEAKER) 0 % 0-1 (test code = 2801) POCT-GLUCOSE [id number] 20:36:00 Test Item Value Reference Range Comments POC-GLUCOSE METER (BEAKER) 211 mg/dL 70-110 TESTE D AT [address] (test code = 1538) [place] [address] CREATININE, RANDOM [id number] 19:55:00 Test Item Value Reference Range Comments CREATININE URINE (BEAKER) (test code = 375) 16.1 mg/dL Reference Range: No NormalsPROTEIN, RANDOM [id number] 19:55:00 Test Item Value Reference Range Comments PROTEIN, URINE (BEAKER) (test code = 1569) 102 mg/dL 0-14 POCT-GLUCOSE [id number] 18:04:00 Test Item Value Reference Range Comments POC-GLUCOSE METER (BEAKER) 177 mg/dL 70-110 TESTE D AT [address] (test code = 1538) [place] [address] POCT-GLUCOSE [id number] 11:59:00 Test Item Value Reference Range Comments POC-GLUCOSE METER (BEAKER) 244 mg/dL 70-110 TESTE D AT [address] (test code = 1538) [place] [address] POCT-GLUCOSE [id number] 07:53:00 Test Item Value Reference Range Comments POC-GLUCOSE METER (BEAKER) 160 mg/dL 70-110 TESTE D AT [address] (test code = 1538) [place] [address] BASIC METABOLIC [id number] 05:29:00 Test Item Value Reference Range Comments SODIUM (BEAKER) (test 136 meq/L 136-145 code = 381) POTASSIUM (BEAKER) (test 4.5 meq/L 3.5-5.1 code = 379) CHLORIDE (BEAKER) (test 105 meq/L 98-107 code = 382) CO2 (BEAKER) (test code = 24 meq/L 22-29 355) BLOOD UREA NITROGEN 51 mg/dL 7-21 (BEAKER) (test code = 354) CREATININE (BEAKER) (test 1.76 mg/dL 0.57-1.25 code = 358) GLUCOSE RANDOM (BEAKER) 149 mg/dL 70-105 (test code = 652) CALCIUM (BEAKER) (test 8.9 mg/dL 8.4-10.2 code = 697) EGFR (BEAKER) (test code 29 mL/min/1.73 sq m EST IMATED GFR IS NOT = 1092) ACCURATE CREA TININE CLEARANCE IN PRE DICTING GLOMERULAR FILTR ATION RATE. ESTIMATED GFR IS NOT APPLICABLE F OR DIALYSIS PATIENT S. [id number] 05:21:00 Test Item Value Reference Range Comments MAGNESIUM (BEAKER) (test code = 627) 2.1 mg/dL 1.6-2.6 HEPATIC FUNCTION [id number] 05:21:00 Test Item Value Reference Range Comments TOTAL PROTEIN (BEAKER) (test code = 770) 6.8 gm/dL 6.0-8.3 ALBUMIN (BEAKER) (test code = 1145) 2.9 g/dL 3.5-5.0 BILIRUBIN TOTAL (BEAKER) (test code = 377) 0.5 mg/dL 0.2-1 .2 BILIRUBIN DIRECT (BEAKER) (test code = 706) 0.2 mg/dL 0.1- 0.5 ALKALINE PHOSPHATASE (BEAKER) (test code = 346) 173 U/L 40-150 AST (SGOT) (BEAKER) (test code = 353) 25 U/L 5-34 ALT (SGPT) (BEAKER) (test code = 347) 23 U/L 6-55 TROPONIN [id number] 05:18:00 Test Item Value Reference Range Comments TROPONIN I (BEAKER) (test code = 397) 0.05 ng/mL 0.00-0.03 Troponin I (TnI) levels [...] and persistent tachyarrhythmia.CBC W/PLT COUNT & AUTO DIFFERENTIAL 2017-09-03 04:59:00 Test Item Value Reference Range Comments WHITE BLOOD CELL COUNT (BEAKER) (test code = 6.9 K/ L 3.5 -10.5 775) RED BLOOD CELL COUNT (BEAKER) (test code = 761) 3.75 M/ L 3.93-5.22 HEMOGLOBIN (BEAKER) (test code = 410) 8.9 GM/DL 11.2-15.7 HEMATOCRIT (BEAKER) (test code = 411) 29.7 % 34.1-44.9 MEAN CORPUSCULAR VOLUME (BEAKER) (test code = 79.2 fL 79 .4-94.8 753) MEAN CORPUSCULAR HEMOGLOBIN (BEAKER) (test code 23.7 pg 25.6-32.2 = 751) MEAN CORPUSCULAR HEMOGLOBIN CONC (BEAKER) (test 30.0 GM/DL 32.2-35.5 code = 752) RED CELL DISTRIBUTION WIDTH (BEAKER) (test code 16.2 % 11.7-14.4 = 412) PLATELET COUNT (BEAKER) (test code = 756) 240 K/CU MM 150-45 0 MEAN PLATELET VOLUME (BEAKER) (test code = 754) 9.6 fL 9.4-12.3 NUCLEATED RED BLOOD CELLS (BEAKER) (test code = 0 /100 WBC 0-0 413) NEUTROPHILS RELATIVE PERCENT (BEAKER) (test code 48 % = 429) LYMPHOCYTES RELATIVE PERCENT (BEAKER) (test code 40 % = 430) MONOCYTES RELATIVE PERCENT (BEAKER) (test code = 6 % 431) EOSINOPHILS RELATIVE PERCENT (BEAKER) (test code 5 % = 432) BASOPHILS RELATIVE PERCENT (BEAKER) (test code = 1 % 437) NEUTROPHILS ABSOLUTE COUNT (BEAKER) (test code = 3.32 K/ L 1.56-6.13 670) LYMPHOCYTES ABSOLUTE COUNT (BEAKER) (test code = 2.76 K/ L 1.18-3.74 414) MONOCYTES ABSOLUTE COUNT (BEAKER) (test code = 0.39 K/ L 0 .24-0.36 415) EOSINOPHILS ABSOLUTE COUNT (BEAKER) (test code = 0.36 K/ L 0.04-0.36 416) BASOPHILS ABSOLUTE COUNT (BEAKER) (test code = 0.06 K/ L 0 .01-0.08 417) IMMATURE GRANULOCYTES-RELATIVE PERCENT (BEAKER) 0 % 0-1 (test code = 2801) TROPONIN [id number] 23:40:00 Test Item Value Reference Range Comments TROPONIN I (BEAKER) (test code = 397) 0.04 ng/mL 0.00-0.03 Troponin I (TnI) levels [...] acidosis, acute neurological disease, and persistent tachyarrhythmia.POCT-GLUCOSE [id number] 22:51:00 Test Item Value Reference Range Comments POC-GLUCOSE METER (BEAKER) 214 mg/dL 70-110 TESTE D AT [facility] [address] [facility] (test code = 1538) [facility] [address] RAD, CHEST, 1 VIEW, NON [id number] 21:42:00Reason for exam:->CHEST PAINShould this be performed at the bedside?->YesFINAL REPORT RAD, CHEST, 1 VIEW, NON DEPT INDICATION: CHEST PAIN COMPARISON: Chest x-ray 4 weeks ago TECHNIQUE: Single frontal view of the chest. IMPRESSION:Cardiomegaly.Mild pulmonary interstitial edema with a small right- sided effusion.No acute osseous abnormality. Signed: Dario Abraham MDReport Verified Date/Time: 09/02/2017 21:42:11 Reading Location: [address] Reading Room CREATININE, RANDOM [id number] 21:10:00 Test Item Value Reference Range Comments CREATININE URINE (BEAKER) (test code = 375) 35.5 mg/dL Reference Range: No NormalsSODIUM, RANDOM [id number] 21:10:00 Test Item Value Reference Range Comments SODIUM URINE (BEAKER) (test code = 243) 80 meq/L Reference Range: No NormalsURINALYSIS W/ [id number] 20:59:00 Test Item Value Reference Range Comments COLOR (BEAKER) (test code = 470) Light Yellow CLARITY (BEAKER) (test code = 469) Clear SPECIFIC GRAVITY UA (BEAKER) (test code = 468) 1.008 1 .001-1.035 PH UA (BEAKER) (test code = 467) 6.5 5.0-8.0 PROTEIN UA (BEAKER) (test code = 464) 200 mg/dL Negative GLUCOSE UA (BEAKER) (test code = 365) 70 mg/dL Negative KETONES UA (BEAKER) (test code = 371) Negative Negative BILIRUBIN UA (BEAKER) (test code = 462) Negative Negative BLOOD UA (BEAKER) (test code = 461) Negative Negative NITRITE UA (BEAKER) (test code = 465) Negative Negative LEUKOCYTE ESTERASE UA (BEAKER) (test code = Negative Nega tive 466) UROBILINOGEN UA (BEAKER) (test code = 463) 0.2 mg/dL 0.2-1 .0 RBC UA (BEAKER) (test code = 519) < /HPF WBC UA (BEAKER) (test code = 520) 2 /HPF BACTERIA (BEAKER) (test code = 517) Occasional MUCUS (BEAKER) (test code = 1574) Rare SQUAMOUS EPITHELIAL (BEAKER) (test code = 516) 2 /HPF HYALINE CASTS (BEAKER) (test code = 514) 7 /LPF SOURCE(BEAKER) (test code = 0637) BASIC METABOLIC [id number] 16:49:00 Test Item Value Reference Range Comments SODIUM (BEAKER) (test 134 meq/L 136-145 code = 381) POTASSIUM (BEAKER) (test 4.8 meq/L 3.5-5.1 code = 379) CHLORIDE (BEAKER) (test 101 meq/L 98-107 code = 382) CO2 (BEAKER) (test code = 26 meq/L 22-29 355) BLOOD UREA NITROGEN 53 mg/dL 7-21 (BEAKER) (test code = 354) CREATININE (BEAKER) (test 2.04 mg/dL 0.57-1.25 code = 358) GLUCOSE RANDOM (BEAKER) 267 mg/dL 70-105 (test code = 652) CALCIUM (BEAKER) (test 9.1 mg/dL 8.4-10.2 code = 697) EGFR (BEAKER) (test code 25 mL/min/1.73 sq m EST IMATED GFR IS NOT = 1092) ACCURATE CREA TININE CLEARANCE IN PRE DICTING GLOMERULAR FILTR ATION RATE. ESTIMATED GFR IS NOT APPLICABLE F OR DIALYSIS PATIENT S. [id number] 16:38:00 Test Item Value Reference Range Comments PROTIME (BEAKER) (test code = 759) 14.4 seconds 11.7-14.7 INR (BEAKER) (test code = 370) 1.1 <=5.9 PARTIAL THROMBOPLASTIN TIME (BEAKER) (test code 31.0 seconds 22.5-36.0 = 760) RECOMMENDED COUMADIN/WARFARIN INR THERAPY RANGESSTANDARD DOSE: 2.0 - 3.0 Includes: PROPHYLAXIS forvenous thrombosis, systemic embolization; TREATMENT for venous thrombosis and/or pulmonary embolus.HIGH RISK: Target INR is 2.5-3.5 for patients with mechanical heart valves.CBC W/PLT COUNT & AUTO DIFFERENTIAL 2017-09-02 16:26:00 Test Item Value Reference Range Comments WHITE BLOOD CELL COUNT (BEAKER) (test code = 6.3 K/ L 3.5 -10.5 775) RED BLOOD CELL COUNT (BEAKER) (test code = 761) 4.22 M/ L 3.93-5.22 HEMOGLOBIN (BEAKER) (test code = 410) 10.1 GM/DL 11.2-15.7 HEMATOCRIT (BEAKER) (test code = 411) 33.4 % 34.1-44.9 MEAN CORPUSCULAR VOLUME (BEAKER) (test code = 79.1 fL 79 .4-94.8 753) MEAN CORPUSCULAR HEMOGLOBIN (BEAKER) (test code 23.9 pg 25.6-32.2 = 751) MEAN CORPUSCULAR HEMOGLOBIN CONC (BEAKER) (test 30.2 GM/DL 32.2-35.5 code = 752) RED CELL DISTRIBUTION WIDTH (BEAKER) (test code 16.1 % 11.7-14.4 = 412) PLATELET COUNT (BEAKER) (test code = 756) 252 K/CU MM 150-45 0 MEAN PLATELET VOLUME (BEAKER) (test code = 754) 9.5 fL 9.4-12.3 NUCLEATED RED BLOOD CELLS (BEAKER) (test code = 0 /100 WBC 0-0 413) NEUTROPHILS RELATIVE PERCENT (BEAKER) (test code 49 % = 429) LYMPHOCYTES RELATIVE PERCENT (BEAKER) (test code 38 % = 430) MONOCYTES RELATIVE PERCENT (BEAKER) (test code = 6 % 431) EOSINOPHILS RELATIVE PERCENT (BEAKER) (test code 5 % = 432) BASOPHILS RELATIVE PERCENT (BEAKER) (test code = 1 % 437) NEUTROPHILS ABSOLUTE COUNT (BEAKER) (test code = 3.08 K/ L 1.56-6.13 670) LYMPHOCYTES ABSOLUTE COUNT (BEAKER) (test code = 2.42 K/ L 1.18-3.74 414) MONOCYTES ABSOLUTE COUNT (BEAKER) (test code = 0.40 K/ L 0 .24-0.36 415) EOSINOPHILS ABSOLUTE COUNT (BEAKER) (test code = 0.33 K/ L 0.04-0.36 416) BASOPHILS ABSOLUTE COUNT (BEAKER) (test code = 0.07 K/ L 0 .01-0.08 417) IMMATURE GRANULOCYTES-RELATIVE PERCENT (BEAKER) 0 % 0-1 (test code = 2801) B-TYPE NATRIURETIC FACTOR (BNP)2017-09-02 13:47:00 Test Item Value Reference Range Comments B-TYPE NATRIURETIC PEPTIDE (BEAKER) (test code = 1942 pg/mL 0-100 700) BASIC METABOLIC [id number] 13:43:00 Test Item Value Reference Range Comments SODIUM (BEAKER) (test 134 meq/L 136-145 code = 381) POTASSIUM (BEAKER) (test 5.2 meq/L 3.5-5.1 code = 379) CHLORIDE (BEAKER) (test 101 meq/L 98-107 code = 382) CO2 (BEAKER) (test code = 25 meq/L 22-29 355) BLOOD UREA NITROGEN 55 mg/dL 7-21 (BEAKER) (test code = 354) CREATININE (BEAKER) (test 2.09 mg/dL 0.57-1.25 code = 358) GLUCOSE RANDOM (BEAKER) 317 mg/dL 70-105 (test code = 652) CALCIUM (BEAKER) (test 9.2 mg/dL 8.4-10.2 code = 697) EGFR (BEAKER) (test code 24 mL/min/1.73 sq m EST IMATED GFR IS NOT = 1092) ACCURATE CREA TININE CLEARANCE IN PRE DICTING GLOMERULAR FILTR ATION RATE. ESTIMATED GFR IS NOT APPLICABLE F OR DIALYSIS PATIENT S. POCT-GLUCOSE [id number] 12:44:00 Test Item Value Reference Range Comments POC-GLUCOSE METER (BEAKER) 283 mg/dL 70-110 TESTE D AT [facility] [address] (test code = 1538) [facility] 77 [address] CALCIUM, [id number] 07:03:00 Test Item Value Reference Range Comments CALCIUM IONIZED (BEAKER) (test code = 698) 1.02 mmol/L 1.12- 1.27 PH, BLOOD (BEAKER) (test code = 1810) 7.43 [id number] 05:28:00 Test Item Value Reference Range Comments PHOSPHORUS (BEAKER) (test code = 604) 3.3 mg/dL 2.3-4.7 [id number] 05:28:00 Test Item Value Reference Range Comments MAGNESIUM (BEAKER) (test code = 627) 1.5 mg/dL 1.6-2.6 BASIC METABOLIC [id number] 05:28:00 Test Item Value Reference Range Comments SODIUM (BEAKER) (test 135 meq/L 136-145 code = 381) POTASSIUM (BEAKER) (test 3.9 meq/L 3.5-5.1 code = 379) CHLORIDE (BEAKER) (test 101 meq/L 98-107 code = 382) CO2 (BEAKER) (test code = 27 meq/L 22-29 355) BLOOD UREA NITROGEN 35 mg/dL 7-21 (BEAKER) (test code = 354) CREATININE (BEAKER) (test 1.37 mg/dL 0.57-1.25 code = 358) GLUCOSE RANDOM (BEAKER) 145 mg/dL 70-105 (test code = 652) CALCIUM (BEAKER) (test 8.3 mg/dL 8.4-10.2 code = 697) EGFR (BEAKER) (test code 39 mL/min/1.73 sq m EST IMATED GFR IS NOT = 1092) ACCURATE CREA TININE CLEARANCE IN PRE DICTING GLOMERULAR FILTR ATION RATE. ESTIMATED GFR IS NOT APPLICABLE F OR DIALYSIS PATIENT S. CBC W/PLT COUNT & AUTO [id number] 05:06:00 Test Item Value Reference Range Comments WHITE BLOOD CELL COUNT (BEAKER) (test code = 9.3 K/ L 3.5 -10.5 775) RED BLOOD CELL COUNT (BEAKER) (test code = 761) 3.64 M/ L 3.93-5.22 HEMOGLOBIN (BEAKER) (test code = 410) 8.7 GM/DL 11.2-15.7 HEMATOCRIT (BEAKER) (test code = 411) 28.5 % 34.1-44.9 MEAN CORPUSCULAR VOLUME (BEAKER) (test code = 78.3 fL 79 .4-94.8 753) MEAN CORPUSCULAR HEMOGLOBIN (BEAKER) (test code 23.9 pg 25.6-32.2 = 751) MEAN CORPUSCULAR HEMOGLOBIN CONC (BEAKER) (test 30.5 GM/DL 32.2-35.5 code = 752) RED CELL DISTRIBUTION WIDTH (BEAKER) (test code 14.6 % 11.7-14.4 = 412) PLATELET COUNT (BEAKER) (test code = 756) 336 K/CU MM 150-45 0 MEAN PLATELET VOLUME (BEAKER) (test code = 754) 9.3 fL 9.4-12.3 NUCLEATED RED BLOOD CELLS (BEAKER) (test code = 0 /100 WBC 0-0 413) NEUTROPHILS RELATIVE PERCENT (BEAKER) (test code 50 % = 429) LYMPHOCYTES RELATIVE PERCENT (BEAKER) (test code 40 % = 430) MONOCYTES RELATIVE PERCENT (BEAKER) (test code = 6 % 431) EOSINOPHILS RELATIVE PERCENT (BEAKER) (test code 3 % = 432) BASOPHILS RELATIVE PERCENT (BEAKER) (test code = 1 % 437) NEUTROPHILS ABSOLUTE COUNT (BEAKER) (test code = 4.66 K/ L 1.56-6.13 670) LYMPHOCYTES ABSOLUTE COUNT (BEAKER) (test code = 3.71 K/ L 1.18-3.74 414) MONOCYTES ABSOLUTE COUNT (BEAKER) (test code = 0.53 K/ L 0 .24-0.36 415) EOSINOPHILS ABSOLUTE COUNT (BEAKER) (test code = 0.31 K/ L 0.04-0.36 416) BASOPHILS ABSOLUTE COUNT (BEAKER) (test code = 0.07 K/ L 0 .01-0.08 417) IMMATURE GRANULOCYTES-RELATIVE PERCENT (BEAKER) 1 % 0-1 (test code = 2801) POCT-GLUCOSE [id number] 21:08:00 Test Item Value Reference Range Comments POC-GLUCOSE METER (BEAKER) 202 mg/dL 70-110 TESTE D AT [address] (test code = 1538) [place] [id number]30 POCT-GLUCOSE [id number] 16:50:00 Test Item Value Reference Range Comments POC-GLUCOSE METER (BEAKER) 287 mg/dL 70-110 TESTE D AT [address] (test code = 1538) [place] [address] POCT-GLUCOSE [id number] 12:21:00 Test Item Value Reference Range Comments POC-GLUCOSE METER (BEAKER) 213 mg/dL 70-110 TESTE D AT [address] (test code = 1538) [place] [address]30 POCT-GLUCOSE [id number] 08:28:00 Test Item Value Reference Range Comments POC-GLUCOSE METER (BEAKER) 178 mg/dL 70-110 TESTE D AT [address] (test code = 1538) [place] [address] CALCIUM, [id number] 07:06:00 Test Item Value Reference Range Comments CALCIUM IONIZED (BEAKER) (test code = 698) 0.99 mmol/L 1.12- 1.27 PH, BLOOD (BEAKER) (test code = 1810) 7.42 [id number] 05:37:00 Test Item Value Reference Range Comments PHOSPHORUS (BEAKER) (test code = 604) 3.5 mg/dL 2.3-4.7 [id number] 05:37:00 Test Item Value Reference Range Comments MAGNESIUM (BEAKER) (test code = 627) 1.6 mg/dL 1.6-2.6 BASIC METABOLIC [id number] 05:37:00 Test Item Value Reference Range Comments SODIUM (BEAKER) (test 133 meq/L 136-145 code = 381) POTASSIUM (BEAKER) (test 3.8 meq/L 3.5-5.1 code = 379) CHLORIDE (BEAKER) (test 101 meq/L 98-107 code = 382) CO2 (BEAKER) (test code = 25 meq/L 22-29 355) BLOOD UREA NITROGEN 39 mg/dL 7-21 (BEAKER) (test code = 354) CREATININE (BEAKER) (test 1.42 mg/dL 0.57-1.25 code = 358) GLUCOSE RANDOM (BEAKER) 200 mg/dL 70-105 (test code = 652) CALCIUM (BEAKER) (test 8.0 mg/dL 8.4-10.2 code = 697) EGFR (BEAKER) (test code 37 mL/min/1.73 sq m EST IMATED GFR IS NOT = 1092) ACCURATE CREA TININE CLEARANCE IN PRE DICTING GLOMERULAR FILTR ATION RATE. ESTIMATED GFR IS NOT APPLICABLE F OR DIALYSIS PATIENT S. CBC W/PLT COUNT & AUTO [id number] 05:07:00 Test Item Value Reference Range Comments WHITE BLOOD CELL COUNT (BEAKER) (test code = 9.2 K/ L 3.5 -10.5 775) RED BLOOD CELL COUNT (BEAKER) (test code = 761) 3.69 M/ L 3.93-5.22 HEMOGLOBIN (BEAKER) (test code = 410) 8.8 GM/DL 11.2-15.7 HEMATOCRIT (BEAKER) (test code = 411) 28.8 % 34.1-44.9 MEAN CORPUSCULAR VOLUME (BEAKER) (test code = 78.0 fL 79 .4-94.8 753) MEAN CORPUSCULAR HEMOGLOBIN (BEAKER) (test code 23.8 pg 25.6-32.2 = 751) MEAN CORPUSCULAR HEMOGLOBIN CONC (BEAKER) (test 30.6 GM/DL 32.2-35.5 code = 752) RED CELL DISTRIBUTION WIDTH (BEAKER) (test code 14.6 % 11.7-14.4 = 412) PLATELET COUNT (BEAKER) (test code = 756) 308 K/CU MM 150-45 0 MEAN PLATELET VOLUME (BEAKER) (test code = 754) 9.3 fL 9.4-12.3 NUCLEATED RED BLOOD CELLS (BEAKER) (test code = 0 /100 WBC 0-0 413) NEUTROPHILS RELATIVE PERCENT (BEAKER) (test code 61 % = 429) LYMPHOCYTES RELATIVE PERCENT (BEAKER) (test code 30 % = 430) MONOCYTES RELATIVE PERCENT (BEAKER) (test code = 5 % 431) EOSINOPHILS RELATIVE PERCENT (BEAKER) (test code 3 % = 432) BASOPHILS RELATIVE PERCENT (BEAKER) (test code = 0 % 437) NEUTROPHILS ABSOLUTE COUNT (BEAKER) (test code = 5.67 K/ L 1.56-6.13 670) LYMPHOCYTES ABSOLUTE COUNT (BEAKER) (test code = 2.72 K/ L 1.18-3.74 414) MONOCYTES ABSOLUTE COUNT (BEAKER) (test code = 0.48 K/ L 0 .24-0.36 415) EOSINOPHILS ABSOLUTE COUNT (BEAKER) (test code = 0.26 K/ L 0.04-0.36 416) BASOPHILS ABSOLUTE COUNT (BEAKER) (test code = 0.04 K/ L 0 .01-0.08 417) IMMATURE GRANULOCYTES-RELATIVE PERCENT (BEAKER) 1 % 0-1 (test code = 2801) POCT-GLUCOSE [id number] 21:24:00 Test Item Value Reference Range Comments POC-GLUCOSE METER (BEAKER) 255 mg/dL 70-110 TESTE D AT [address] (test code = 1538) [place] [address] POCT-GLUCOSE [id number] 17:11:00 Test Item Value Reference Range Comments POC-GLUCOSE METER (BEAKER) 244 mg/dL 70-110 TESTE D AT [address] (test code = 1538) [place] [address] POCT-GLUCOSE [id number] 11:54:00 Test Item Value Reference Range Comments POC-GLUCOSE METER (BEAKER) 209 mg/dL 70-110 TESTE D AT [address] (test code = 1538) [place] [address] POCT-GLUCOSE [id number] 08:15:00 Test Item Value Reference Range Comments POC-GLUCOSE METER (BEAKER) 132 mg/dL 70-110 TESTE D AT [facility] [address] (test code = 1538) [place] [address] RAD, CHEST, 1 VIEW, NON [id number] 07:44:00Reason for exam:->edemaShould this be performed at the bedside?->YesFINAL REPORT Chest one view AP 08/07/2017 7:44 AM CLINICAL INDICATION: edema COMPARISON: 05/31/2017 IMPRESSION: Cardiomediastinal contours are stable. There is mild pulmonary edema,asymmetric to the right. There are trace bilateral pleural effusions, with bibasilar linear atelectasis. Sternotomy wires remain midline. Signed: Eder Cespedes Verified Date/Time: 08/07/2017 07:44:22 Reading Location: [facility] Radiology Reading Room [id number] 05:30:00 Test Item Value Reference Range Comments FERRITIN (BEAKER) (test code = 361) 87 ng/mL 5-275 CBC W/PLT COUNT & AUTO [id number] 05:21:00 Test Item Value Reference Range Comments WHITE BLOOD CELL COUNT (BEAKER) (test code = 12.4 K/ L 3.5 -10.5 775) RED BLOOD CELL COUNT (BEAKER) (test code = 761) 3.78 M/ L 3.93-5.22 HEMOGLOBIN (BEAKER) (test code = 410) 9.0 GM/DL 11.2-15.7 HEMATOCRIT (BEAKER) (test code = 411) 29.3 % 34.1-44.9 MEAN CORPUSCULAR VOLUME (BEAKER) (test code = 77.5 fL 79 .4-94.8 753) MEAN CORPUSCULAR HEMOGLOBIN (BEAKER) (test code 23.8 pg 25.6-32.2 = 751) MEAN CORPUSCULAR HEMOGLOBIN CONC (BEAKER) (test 30.7 GM/DL 32.2-35.5 code = 752) RED CELL DISTRIBUTION WIDTH (BEAKER) (test code 14.7 % 11.7-14.4 = 412) PLATELET COUNT (BEAKER) (test code = 756) 316 K/CU MM 150-45 0 MEAN PLATELET VOLUME (BEAKER) (test code = 754) 9.6 fL 9.4-12.3 NUCLEATED RED BLOOD CELLS (BEAKER) (test code = 0 /100 WBC 0-0 413) NEUTROPHILS RELATIVE PERCENT (BEAKER) (test code 72 % = 429) LYMPHOCYTES RELATIVE PERCENT (BEAKER) (test code 20 % = 430) MONOCYTES RELATIVE PERCENT (BEAKER) (test code = 5 % 431) EOSINOPHILS RELATIVE PERCENT (BEAKER) (test code 2 % = 432) BASOPHILS RELATIVE PERCENT (BEAKER) (test code = 1 % 437) NEUTROPHILS ABSOLUTE COUNT (BEAKER) (test code = 8.93 K/ L 1.56-6.13 670) LYMPHOCYTES ABSOLUTE COUNT (BEAKER) (test code = 2.51 K/ L 1.18-3.74 414) MONOCYTES ABSOLUTE COUNT (BEAKER) (test code = 0.58 K/ L 0 .24-0.36 415) EOSINOPHILS ABSOLUTE COUNT (BEAKER) (test code = 0.23 K/ L 0.04-0.36 416) BASOPHILS ABSOLUTE COUNT (BEAKER) (test code = 0.07 K/ L 0 .01-0.08 417) IMMATURE GRANULOCYTES-RELATIVE PERCENT (BEAKER) 1 % 0-1 (test code = 2801) IRON, TIBC, % SAT. (WITHOUT FERRITIN)2017-08-07 05:16:00 Test Item Value Reference Range Comments IRON (BEAKER) (test code = 547) 21 ug/dL 40-160 TOTAL IRON BINDING CAPACITY (BEAKER) (test code = 184 ug/dL 250-450 769) IRON % SATURATION (2) (BEAKER) (test code = 2590) 11 % 20-55 [id number] 05:11:00 Test Item Value Reference Range Comments PHOSPHORUS (BEAKER) (test code = 604) 3.6 mg/dL 2.3-4.7 [id number] 05:11:00 Test Item Value Reference Range Comments MAGNESIUM (BEAKER) (test code = 627) 2.0 mg/dL 1.6-2.6 BASIC METABOLIC [id number] 05:11:00 Test Item Value Reference Range Comments SODIUM (BEAKER) (test 134 meq/L 136-145 code = 381) POTASSIUM (BEAKER) (test 3.9 meq/L 3.5-5.1 code = 379) CHLORIDE (BEAKER) (test 102 meq/L 98-107 code = 382) CO2 (BEAKER) (test code = 23 meq/L 22-29 355) BLOOD UREA NITROGEN 41 mg/dL 7-21 (BEAKER) (test code = 354) CREATININE (BEAKER) (test 1.63 mg/dL 0.57-1.25 code = 358) GLUCOSE RANDOM (BEAKER) 124 mg/dL 70-105 (test code = 652) CALCIUM (BEAKER) (test 8.3 mg/dL 8.4-10.2 code = 697) EGFR (BEAKER) (test code 32 mL/min/1.73 sq m EST IMATED GFR IS NOT = 1092) ACCURATE CREA TININE CLEARANCE IN PRE DICTING GLOMERULAR FILTR ATION RATE. ESTIMATED GFR IS NOT APPLICABLE F OR DIALYSIS PATIENT S. B-TYPE NATRIURETIC FACTOR (BNP)2017-08-07 05:05:00 Test Item Value Reference Range Comments B-TYPE NATRIURETIC PEPTIDE (BEAKER) (test code = 1561 pg/mL 0-100 700) CALCIUM, [id number] 04:58:00 Test Item Value Reference Range Comments CALCIUM IONIZED (BEAKER) (test code = 698) 1.04 mmol/L 1.12- 1.27 PH, BLOOD (BEAKER) (test code = 1810) 7.41 RETICULOCYTE [id number] 04:51:00 Test Item Value Reference Range Comments RETICULOCYTE COUNT PCT (BEAKER) (test code = 575) 1.2 % 0.5-1.7 POCT-GLUCOSE [id number] 20:49:00 Test Item Value Reference Range Comments POC-GLUCOSE METER (BEAKER) 202 mg/dL 70-110 TESTE D AT [facility] [address] [facility] (test code = 1538) [place] [address] CREATININE, RANDOM [id number] 18:38:00 Test Item Value Reference Range Comments CREATININE URINE (BEAKER) (test code = 375) 56.3 mg/dL Reference Range: No NormalsPROTEIN, RANDOM [id number] 18:38:00 Test Item Value Reference Range Comments PROTEIN, URINE (BEAKER) (test code = 1569) 189 mg/dL 0-14 URINALYSIS W/ [id number] 18:34:00 Test Item Value Reference Range Comments COLOR (BEAKER) (test code = 470) Light Yellow CLARITY (BEAKER) (test code = 469) Hazy SPECIFIC GRAVITY UA (BEAKER) (test code = 468) 1.008 1 .001-1.035 PH UA (BEAKER) (test code = 467) 5.5 5.0-8.0 PROTEIN UA (BEAKER) (test code = 464) 100 mg/dL Negative GLUCOSE UA (BEAKER) (test code = 365) 30 mg/dL Negative KETONES UA (BEAKER) (test code = 371) Negative Negative BILIRUBIN UA (BEAKER) (test code = 462) Negative Negative BLOOD UA (BEAKER) (test code = 461) Negative Negative NITRITE UA (BEAKER) (test code = 465) Negative Negative LEUKOCYTE ESTERASE UA (BEAKER) (test code = Negative Nega tive 466) UROBILINOGEN UA (BEAKER) (test code = 463) 0.2 mg/dL 0.2-1 .0 RBC UA (BEAKER) (test code = 519) < /HPF WBC UA (BEAKER) (test code = 520) 2 /HPF BACTERIA (BEAKER) (test code = 517) Rare MUCUS (BEAKER) (test code = 1574) Rare SQUAMOUS EPITHELIAL (BEAKER) (test code = 516) 8 /HPF SOURCE(BEAKER) (test code = 2795) Urine, Voided POCT-GLUCOSE [id number] 17:38:00 Test Item Value Reference Range Comments POC-GLUCOSE METER (BEAKER) 143 mg/dL 70-110 TESTE D AT [address] (test code = 1538) [place] [address] POCT-GLUCOSE [id number] 12:30:00 Test Item Value Reference Range Comments POC-GLUCOSE METER (BEAKER) 218 mg/dL 70-110 TESTE D AT [address] (test code = 1538) [place] [address] POCT-GLUCOSE [id number] 08:00:00 Test Item Value Reference Range Comments POC-GLUCOSE METER (BEAKER) 134 mg/dL 70-110 TESTE D AT [place] [id number] (test code = 1538) [place] [address] CBC W/PLT COUNT & AUTO [id number] 04:23:00 Test Item Value Reference Range Comments WHITE BLOOD CELL COUNT (BEAKER) (test code = 13.9 K/ L 3.5 -10.5 775) RED BLOOD CELL COUNT (BEAKER) (test code = 761) 3.23 M/ L 3.93-5.22 HEMOGLOBIN (BEAKER) (test code = 410) 7.6 GM/DL 11.2-15.7 HEMATOCRIT (BEAKER) (test code = 411) 25.3 % 34.1-44.9 MEAN CORPUSCULAR VOLUME (BEAKER) (test code = 78.3 fL 79 .4-94.8 753) MEAN CORPUSCULAR HEMOGLOBIN (BEAKER) (test code 23.5 pg 25.6-32.2 = 751) MEAN CORPUSCULAR HEMOGLOBIN CONC (BEAKER) (test 30.0 GM/DL 32.2-35.5 code = 752) RED CELL DISTRIBUTION WIDTH (BEAKER) (test code 14.8 % 11.7-14.4 = 412) PLATELET COUNT (BEAKER) (test code = 756) 284 K/CU MM 150-45 0 MEAN PLATELET VOLUME (BEAKER) (test code = 754) 9.8 fL 9.4-12.3 NUCLEATED RED BLOOD CELLS (BEAKER) (test code = 0 /100 WBC 0-0 413) NEUTROPHILS RELATIVE PERCENT (BEAKER) (test code 77 % = 429) LYMPHOCYTES RELATIVE PERCENT (BEAKER) (test code 16 % = 430) MONOCYTES RELATIVE PERCENT (BEAKER) (test code = 4 % 431) EOSINOPHILS RELATIVE PERCENT (BEAKER) (test code 2 % = 432) BASOPHILS RELATIVE PERCENT (BEAKER) (test code = 1 % 437) NEUTROPHILS ABSOLUTE COUNT (BEAKER) (test code = 10.70 K/ L 1.56-6.13 670) LYMPHOCYTES ABSOLUTE COUNT (BEAKER) (test code = 2.17 K/ L 1.18-3.74 414) MONOCYTES ABSOLUTE COUNT (BEAKER) (test code = 0.57 K/ L 0 .24-0.36 415) EOSINOPHILS ABSOLUTE COUNT (BEAKER) (test code = 0.30 K/ L 0.04-0.36 416) BASOPHILS ABSOLUTE COUNT (BEAKER) (test code = 0.08 K/ L 0 .01-0.08 417) IMMATURE GRANULOCYTES-RELATIVE PERCENT (BEAKER) 1 % 0-1 (test code = 2801) BASIC METABOLIC [id number] 04:13:00 Test Item Value Reference Range Comments SODIUM (BEAKER) (test 134 meq/L 136-145 code = 381) POTASSIUM (BEAKER) (test 4.6 meq/L 3.5-5.1 code = 379) CHLORIDE (BEAKER) (test 103 meq/L 98-107 code = 382) CO2 (BEAKER) (test code = 23 meq/L 22-29 355) BLOOD UREA NITROGEN 43 mg/dL 7-21 (BEAKER) (test code = 354) CREATININE (BEAKER) (test 1.79 mg/dL 0.57-1.25 code = 358) GLUCOSE RANDOM (BEAKER) 123 mg/dL 70-105 (test code = 652) CALCIUM (BEAKER) (test 8.1 mg/dL 8.4-10.2 code = 697) EGFR (BEAKER) (test code 29 mL/min/1.73 sq m EST IMATED GFR IS NOT = 1092) ACCURATE CREA TININE CLEARANCE IN PRE DICTING GLOMERULAR FILTR ATION RATE. ESTIMATED GFR IS NOT APPLICABLE F OR DIALYSIS PATIENT S. [id number] 04:10:00 Test Item Value Reference Range Comments PHOSPHORUS (BEAKER) (test code = 604) 4.9 mg/dL 2.3-4.7 [id number] 04:10:00 Test Item Value Reference Range Comments MAGNESIUM (BEAKER) (test code = 627) 1.4 mg/dL 1.6-2.6 [id number] 04:08:00 Test Item Value Reference Range Comments FIBRINOGEN LEVEL (BEAKER) (test code = 658) 548 mg/dl 225- 434 [id number] 04:08:00 Test Item Value Reference Range Comments PARTIAL THROMBOPLASTIN TIME (BEAKER) (test code 37.7 seconds 22.5-36.0 = 760) PROTHROMBIN [id number] 04:07:00 Test Item Value Reference Range Comments PROTIME (BEAKER) (test code = 759) 16.2 seconds 11.7-14.7 INR (BEAKER) (test code = 370) 1.3 <=5.9 RECOMMENDED COUMADIN/WARFARIN INR THERAPY RANGESSTANDARD DOSE: 2.0 - 3.0 Includes: PROPHYLAXIS forvenous thrombosis, systemic embolization; TREATMENT for venous thrombosis and/or pulmonary embolus.HIGH RISK: Target INR is 2.5-3.5 for patients with mechanical heart valves.[id number] 16:59:00 Test Item Value Reference Range Comments ACTIVATED CLOTTING TIME 219 sec TESTED A T [facility] [address] (BEAKER) (test code = 441) [place] [address] BASIC METABOLIC [id number] 14:25:00 Test Item Value Reference Range Comments SODIUM (BEAKER) (test 134 meq/L 136-145 code = 381) POTASSIUM (BEAKER) (test 4.4 meq/L 3.5-5.1 code = 379) CHLORIDE (BEAKER) (test 103 meq/L 98-107 code = 382) CO2 (BEAKER) (test code = 22 meq/L 22-29 355) BLOOD UREA NITROGEN 46 mg/dL 7-21 (BEAKER) (test code = 354) CREATININE (BEAKER) (test 2.16 mg/dL 0.57-1.25 code = 358) GLUCOSE RANDOM (BEAKER) 160 mg/dL 70-105 (test code = 652) CALCIUM (BEAKER) (test 7.8 mg/dL 8.4-10.2 code = 697) EGFR (BEAKER) (test code 23 mL/min/1.73 sq m EST IMATED GFR IS NOT = 1092) ACCURATE CREA TININE CLEARANCE IN PRE DICTING GLOMERULAR FILTR ATION RATE. ESTIMATED GFR IS NOT APPLICABLE F OR DIALYSIS PATIENT S. POCT-GLUCOSE [id number] 13:21:00 Test Item Value Reference Range Comments POC-GLUCOSE METER (BEAKER) 170 mg/dL 70-110 TESTE D AT [facility] [address] (test code = 1538) [place] [address] POTASSIUM-STAT [id number] 13:20:00 Test Item Value Reference Range Comments POTASSIUM (BEAKER) (test code = 379) 4.2 meq/L 3.6-5.5 SODIUM NA-STAT [id number] 13:20:00 Test Item Value Reference Range Comments SODIUM (BEAKER) (test code = 381) 133 meq/L 135-148 HGB/HCT (H&H) - STAT [id number] 12:34:00 Test Item Value Reference Range Comments HEMOGLOBIN (BEAKER) (test code = 410) 10.8 g/dL 12.0-15.0 HEMATOCRIT (BEAKER) (test code = 411) 32.0 % 36.0-45.0 POTASSIUM-STAT [id number] 08:15:00 Test Item Value Reference Range Comments POTASSIUM (BEAKER) (test code = 379) 4.1 meq/L 3.6-5.5 BLOOD GAS, [id number] 08:15:00 Test Item Value Reference Range Comments PH ARTERIAL (BEAKER) (test code = 383) 7.36 7.35-7.45 PCO2 ARTERIAL (BEAKER) (test code = 384) 47 mmHg 35-45 PO2 ARTERIAL (BEAKER) (test code = 385) 213 mmHg 80-90 O2 SATURATION ARTERIAL (BEAKER) (test code = 386) 99.4 % 96.0-97.0 HCO3 ARTERIAL (BEAKER) (test code = 388) 26 mmol/L 21-29 BASE EXCESS ARTERIAL (BEAKER) (test code = 387) 0.3 mmol/L -2.0-3.0 PATIENT TEMPERATURE (BEAKER) (test code = 1818) 37.2 C FIO2 (BEAKER) (test code = 1819) 70.0 % SODIUM NA-STAT [id number] 08:15:00 Test Item Value Reference Range Comments SODIUM (BEAKER) (test code = 381) 130 meq/L 135-148 GLUCOSE-STAT [id number] 08:15:00 Test Item Value Reference Range Comments GLUCOSE RANDOM (BEAKER) (test code = 652) 172 mg/dL 70-110 HGB/HCT (H&H) - STAT [id number] 08:15:00 Test Item Value Reference Range Comments HEMOGLOBIN (BEAKER) (test code = 410) 8.8 g/dL 12.0-15.0 HEMATOCRIT (BEAKER) (test code = 411) 26.0 % 36.0-45.0 BASIC METABOLIC [id number] 07:37:00 Test Item Value Reference Range Comments SODIUM (BEAKER) (test 135 meq/L 136-145 code = 381) POTASSIUM (BEAKER) (test 4.4 meq/L 3.5-5.1 code = 379) CHLORIDE (BEAKER) (test 100 meq/L 98-107 code = 382) CO2 (BEAKER) (test code = 23 meq/L 22-29 355) BLOOD UREA NITROGEN 46 mg/dL 7-21 (BEAKER) (test code = 354) CREATININE (BEAKER) (test 1.98 mg/dL 0.57-1.25 code = 358) GLUCOSE RANDOM (BEAKER) 188 mg/dL 70-105 (test code = 652) CALCIUM (BEAKER) (test 8.9 mg/dL 8.4-10.2 code = 697) EGFR (BEAKER) (test code 26 mL/min/1.73 sq m EST IMATED GFR IS NOT = 1092) ACCURATE CREA TININE CLEARANCE IN PRE DICTING GLOMERULAR FILTR ATION RATE. ESTIMATED GFR IS NOT APPLICABLE F OR DIALYSIS PATIENT S. CBC W/PLT COUNT & AUTO [id number] 07:20:00 Test Item Value Reference Range Comments WHITE BLOOD CELL COUNT (BEAKER) (test code = 20.2 K/ L 3.5 -10.5 775) RED BLOOD CELL COUNT (BEAKER) (test code = 761) 3.86 M/ L 3.93-5.22 HEMOGLOBIN (BEAKER) (test code = 410) 9.1 GM/DL 11.2-15.7 HEMATOCRIT (BEAKER) (test code = 411) 29.4 % 34.1-44.9 MEAN CORPUSCULAR VOLUME (BEAKER) (test code = 76.2 fL 79 .4-94.8 753) MEAN CORPUSCULAR HEMOGLOBIN (BEAKER) (test code 23.6 pg 25.6-32.2 = 751) MEAN CORPUSCULAR HEMOGLOBIN CONC (BEAKER) (test 31.0 GM/DL 32.2-35.5 code = 752) RED CELL DISTRIBUTION WIDTH (BEAKER) (test code 14.9 % 11.7-14.4 = 412) PLATELET COUNT (BEAKER) (test code = 756) 343 K/CU MM 150-45 0 MEAN PLATELET VOLUME (BEAKER) (test code = 754) 9.5 fL 9.4-12.3 NUCLEATED RED BLOOD CELLS (BEAKER) (test code = 0 /100 WBC 0-0 413) NEUTROPHILS RELATIVE PERCENT (BEAKER) (test code 78 % = 429) LYMPHOCYTES RELATIVE PERCENT (BEAKER) (test code 15 % = 430) MONOCYTES RELATIVE PERCENT (BEAKER) (test code = 5 % 431) EOSINOPHILS RELATIVE PERCENT (BEAKER) (test code 1 % = 432) BASOPHILS RELATIVE PERCENT (BEAKER) (test code = 1 % 437) NEUTROPHILS ABSOLUTE COUNT (BEAKER) (test code = 15.70 K/ L 1.56-6.13 670) LYMPHOCYTES ABSOLUTE COUNT (BEAKER) (test code = 2.99 K/ L 1.18-3.74 414) MONOCYTES ABSOLUTE COUNT (BEAKER) (test code = 0.93 K/ L 0 .24-0.36 415) EOSINOPHILS ABSOLUTE COUNT (BEAKER) (test code = 0.20 K/ L 0.04-0.36 416) BASOPHILS ABSOLUTE COUNT (BEAKER) (test code = 0.12 K/ L 0 .01-0.08 417) IMMATURE GRANULOCYTES-RELATIVE PERCENT (BEAKER) 1 % 0-1 (test code = 2801) POCT-GLUCOSE [id number] 07:03:00 Test Item Value Reference Range Comments POC-GLUCOSE METER (BEAKER) 186 mg/dL 70-110 TESTE D AT [facility] [address] [facility] (test code = 1538) [facility] [address] B-TYPE NATRIURETIC FACTOR (BNP)2017-06-10 12:44:00 Test Item Value Reference Range Comments B-TYPE NATRIURETIC PEPTIDE (BEAKER) (test code = 1264 pg/mL 0-100 700) [id number] 12:36:00 Test Item Value Reference Range Comments MAGNESIUM (BEAKER) (test code = 627) 1.6 mg/dL 1.6-2.6 BASIC METABOLIC [id number] 12:36:00 Test Item Value Reference Range Comments SODIUM (BEAKER) (test 137 meq/L 136-145 code = 381) POTASSIUM (BEAKER) (test 5.4 meq/L 3.5-5.1 code = 379) CHLORIDE (BEAKER) (test 108 meq/L 98-107 code = 382) CO2 (BEAKER) (test code = 21 meq/L 22-29 355) BLOOD UREA NITROGEN 39 mg/dL 7-21 (BEAKER) (test code = 354) CREATININE (BEAKER) (test 1.49 mg/dL 0.57-1.25 code = 358) GLUCOSE RANDOM (BEAKER) 219 mg/dL 70-105 (test code = 652) CALCIUM (BEAKER) (test 8.5 mg/dL 8.4-10.2 code = 697) EGFR (BEAKER) (test code 35 mL/min/1.73 sq m EST IMATED GFR IS NOT = 1092) ACCURATE CREA TININE CLEARANCE IN PRE DICTING GLOMERULAR FILTR ATION RATE. ESTIMATED GFR IS NOT APPLICABLE F OR DIALYSIS PATIENT S. POCT-GLUCOSE [id number] 12:04:00 Test Item Value Reference Range Comments POC-GLUCOSE METER (BEAKER) 274 mg/dL 70-110 TESTE D AT [facility] [address] [facility] (test code = 1538) [place] [address] POCT-GLUCOSE [id number] 07:21:00 Test Item Value Reference Range Comments POC-GLUCOSE METER (BEAKER) 137 mg/dL 70-110 TESTE D AT [facility] [address] [facility] (test code = 1538) [place] [address] BASIC METABOLIC [id number] 05:10:00 Test Item Value Reference Range Comments SODIUM (BEAKER) (test 137 meq/L 136-145 code = 381) POTASSIUM (BEAKER) (test 4.1 meq/L 3.5-5.1 code = 379) CHLORIDE (BEAKER) (test 106 meq/L 98-107 code = 382) CO2 (BEAKER) (test code = 24 meq/L 22-29 355) BLOOD UREA NITROGEN 42 mg/dL 7-21 (BEAKER) (test code = 354) CREATININE (BEAKER) (test 1.64 mg/dL 0.57-1.25 code = 358) GLUCOSE RANDOM (BEAKER) 162 mg/dL 70-105 (test code = 652) CALCIUM (BEAKER) (test 8.1 mg/dL 8.4-10.2 code = 697) EGFR (BEAKER) (test code 32 mL/min/1.73 sq m EST IMATED GFR IS NOT = 1092) ACCURATE CREA TININE CLEARANCE IN PRE DICTING GLOMERULAR FILTR ATION RATE. ESTIMATED GFR IS NOT APPLICABLE F OR DIALYSIS PATIENT S. CBC (HEMOGRAM ONLY)2017-06-01 04:30:00 Test Item Value Reference Range Comments WHITE BLOOD CELL COUNT (BEAKER) (test code = 6.4 K/ L 3.5 -10.5 775) RED BLOOD CELL COUNT (BEAKER) (test code = 761) 3.38 M/ L 3.93-5.22 HEMOGLOBIN (BEAKER) (test code = 410) 8.7 GM/DL 11.2-15.7 HEMATOCRIT (BEAKER) (test code = 411) 28.2 % 34.1-44.9 MEAN CORPUSCULAR VOLUME (BEAKER) (test code = 83.4 fL 79 .4-94.8 753) MEAN CORPUSCULAR HEMOGLOBIN (BEAKER) (test code 25.7 pg 25.6-32.2 = 751) MEAN CORPUSCULAR HEMOGLOBIN CONC (BEAKER) (test 30.9 GM/DL 32.2-35.5 code = 752) RED CELL DISTRIBUTION WIDTH (BEAKER) (test code 15.2 % 11.7-14.4 = 412) PLATELET COUNT (BEAKER) (test code = 756) 320 K/CU MM 150-45 0 MEAN PLATELET VOLUME (BEAKER) (test code = 754) 9.5 fL 9.4-12.3 NUCLEATED RED BLOOD CELLS (BEAKER) (test code = 0 /100 WBC 0-0 413) POCT-GLUCOSE [id number] 21:23:00 Test Item Value Reference Range Comments POC-GLUCOSE METER (BEAKER) 240 mg/dL 70-110 TESTE D AT [address] (test code = 1538) [place] [id number] POCT-GLUCOSE [id number] 16:42:00 Test Item Value Reference Range Comments POC-GLUCOSE METER (BEAKER) 234 mg/dL 70-110 TESTE D AT [address] (test code = 1538) [place] [id number] POCT-GLUCOSE [id number] 13:22:00 Test Item Value Reference Range Comments POC-GLUCOSE METER (BEAKER) 166 mg/dL 70-110 TESTE D AT [address] (test code = 1538) [facility] [address] RAD, CHEST, 1 VIEW, NON [id number] 09:43:00Reason for exam:->s/p ACBShould this be performed [...] are present. No pneumothorax. Signed: Lynda Ring MDReport Verified Date/Time: 05/31/2017 09:43:30 ReadingLocation: [facility] B1 [id number] Ortho Consult Reading Room POCT-GLUCOSE [id number] 06:57:00 Test Item Value Reference Range Comments POC-GLUCOSE METER (BEAKER) 136 mg/dL 70-110 TESTE D AT [address] (test code = 1538) [place] [id number] CALCIUM, [id number] 06:41:00 Test Item Value Reference Range Comments CALCIUM IONIZED (BEAKER) (test code = 698) 1.10 mmol/L 1.12- 1.27 PH, BLOOD (BEAKER) (test code = 1810) 7.42 [id number] 06:17:00 Test Item Value Reference Range Comments PHOSPHORUS (BEAKER) (test code = 604) 3.3 mg/dL 2.3-4.7 [id number] 06:17:00 Test Item Value Reference Range Comments MAGNESIUM (BEAKER) (test code = 627) 1.8 mg/dL 1.6-2.6 BASIC METABOLIC [id number] 06:17:00 Test Item Value Reference Range Comments SODIUM (BEAKER) (test 131 meq/L 136-145 code = 381) POTASSIUM (BEAKER) (test 4.5 meq/L 3.5-5.1 code = 379) CHLORIDE (BEAKER) (test 103 meq/L 98-107 code = 382) CO2 (BEAKER) (test code = 21 meq/L 22-29 355) BLOOD UREA NITROGEN 43 mg/dL 7-21 (BEAKER) (test code = 354) CREATININE (BEAKER) (test 1.74 mg/dL 0.57-1.25 code = 358) GLUCOSE RANDOM (BEAKER) 126 mg/dL 70-105 (test code = 652) CALCIUM (BEAKER) (test 8.1 mg/dL 8.4-10.2 code = 697) EGFR (BEAKER) (test code 30 mL/min/1.73 sq m EST IMATED GFR IS NOT = 1092) ACCURATE CREA TININE CLEARANCE IN PRE DICTING GLOMERULAR FILTR ATION RATE. ESTIMATED GFR IS NOT APPLICABLE F OR DIALYSIS PATIENT S. CBC W/PLT COUNT & AUTO [id number] 05:07:00 Test Item Value Reference Range Comments WHITE BLOOD CELL COUNT (BEAKER) (test code = 5.9 K/ L 3.5 -10.5 775) RED BLOOD CELL COUNT (BEAKER) (test code = 761) 3.16 M/ L 3.93-5.22 HEMOGLOBIN (BEAKER) (test code = 410) 8.2 GM/DL 11.2-15.7 HEMATOCRIT (BEAKER) (test code = 411) 26.6 % 34.1-44.9 MEAN CORPUSCULAR VOLUME (BEAKER) (test code = 84.2 fL 79 .4-94.8 753) MEAN CORPUSCULAR HEMOGLOBIN (BEAKER) (test code 25.9 pg 25.6-32.2 = 751) MEAN CORPUSCULAR HEMOGLOBIN CONC (BEAKER) (test 30.8 GM/DL 32.2-35.5 code = 752) RED CELL DISTRIBUTION WIDTH (BEAKER) (test code 15.1 % 11.7-14.4 = 412) PLATELET COUNT (BEAKER) (test code = 756) 320 K/CU MM 150-45 0 MEAN PLATELET VOLUME (BEAKER) (test code = 754) 9.6 fL 9.4-12.3 NUCLEATED RED BLOOD CELLS (BEAKER) (test code = 0 /100 WBC 0-0 413) NEUTROPHILS RELATIVE PERCENT (BEAKER) (test code 65 % = 429) LYMPHOCYTES RELATIVE PERCENT (BEAKER) (test code 24 % = 430) MONOCYTES RELATIVE PERCENT (BEAKER) (test code = 8 % 431) EOSINOPHILS RELATIVE PERCENT (BEAKER) (test code 2 % = 432) BASOPHILS RELATIVE PERCENT (BEAKER) (test code = 1 % 437) NEUTROPHILS ABSOLUTE COUNT (BEAKER) (test code = 3.84 K/ L 1.56-6.13 670) LYMPHOCYTES ABSOLUTE COUNT (BEAKER) (test code = 1.41 K/ L 1.18-3.74 414) MONOCYTES ABSOLUTE COUNT (BEAKER) (test code = 0.47 K/ L 0 .24-0.36 415) EOSINOPHILS ABSOLUTE COUNT (BEAKER) (test code = 0.11 K/ L 0.04-0.36 416) BASOPHILS ABSOLUTE COUNT (BEAKER) (test code = 0.05 K/ L 0 .01-0.08 417) IMMATURE GRANULOCYTES-RELATIVE PERCENT (BEAKER) 1 % 0-1 (test code = 2801) POCT-GLUCOSE [id number] 20:56:00 Test Item Value Reference Range Comments POC-GLUCOSE METER (BEAKER) 196 mg/dL 70-110 TESTE D AT [address] (test code = 1538) [place] [address] POCT-GLUCOSE [id number] 16:42:00 Test Item Value Reference Range Comments POC-GLUCOSE METER (BEAKER) 196 mg/dL 70-110 TESTE D AT [address] (test code = 1538) [place] [address] POCT-GLUCOSE [id number] 11:45:00 Test Item Value Reference Range Comments POC-GLUCOSE METER (BEAKER) 215 mg/dL 70-110 TESTE D AT [address] (test code = 1538) [place] [address] RAD, CHEST, 1 VIEW, NON [id number] 11:15:00Reason for exam:->s/p ACBShould this be performed at the bedside?->YesFINAL REPORT Chest one view compared to May 28, 2017 Discussion: Airspace opacities are seen in both lower lung regions, probably atelectasis. Correlate clinically for infection. I could not exclude small effusions. No pneumothorax. Upper lungs clear. Signed: Jeannette Nava MDReport Verified Date/Time: 05/30/2017 11:15:07 Reading Location: [facility] Reading Room CALCIUM, [id number] 09:21:00 Test Item Value Reference Range Comments CALCIUM IONIZED (BEAKER) (test code = 698) 1.11 mmol/L 1.12- 1.27 PH, BLOOD (BEAKER) (test code = 1810) 7.36 BASIC METABOLIC [id number] 07:37:00 Test Item Value Reference Range Comments SODIUM (BEAKER) (test 135 meq/L 136-145 code = 381) POTASSIUM (BEAKER) (test 4.9 meq/L 3.5-5.1 code = 379) CHLORIDE (BEAKER) (test 105 meq/L 98-107 code = 382) CO2 (BEAKER) (test code = 25 meq/L 22-29 355) BLOOD UREA NITROGEN 44 mg/dL 7-21 (BEAKER) (test code = 354) CREATININE (BEAKER) (test 1.76 mg/dL 0.57-1.25 code = 358) GLUCOSE RANDOM (BEAKER) 136 mg/dL 70-105 (test code = 652) CALCIUM (BEAKER) (test 8.2 mg/dL 8.4-10.2 code = 697) EGFR (BEAKER) (test code 29 mL/min/1.73 sq m EST IMATED GFR IS NOT = 1092) ACCURATE CREA TININE CLEARANCE IN PRE DICTING GLOMERULAR FILTR ATION RATE. ESTIMATED GFR IS NOT APPLICABLE F OR DIALYSIS PATIENT S. [id number] 07:28:00 Test Item Value Reference Range Comments PHOSPHORUS (BEAKER) (test code = 604) 3.8 mg/dL 2.3-4.7 [id number] 07:28:00 Test Item Value Reference Range Comments MAGNESIUM (BEAKER) (test code = 627) 1.9 mg/dL 1.6-2.6 CBC W/PLT COUNT & AUTO [id number] 07:26:00 Test Item Value Reference Range Comments WHITE BLOOD CELL COUNT (BEAKER) (test code = 6.3 K/ L 3.5 -10.5 775) RED BLOOD CELL COUNT (BEAKER) (test code = 761) 3.32 M/ L 3.93-5.22 HEMOGLOBIN (BEAKER) (test code = 410) 8.5 GM/DL 11.2-15.7 HEMATOCRIT (BEAKER) (test code = 411) 27.8 % 34.1-44.9 MEAN CORPUSCULAR VOLUME (BEAKER) (test code = 83.7 fL 79 .4-94.8 753) MEAN CORPUSCULAR HEMOGLOBIN (BEAKER) (test code 25.6 pg 25.6-32.2 = 751) MEAN CORPUSCULAR HEMOGLOBIN CONC (BEAKER) (test 30.6 GM/DL 32.2-35.5 code = 752) RED CELL DISTRIBUTION WIDTH (BEAKER) (test code 15.0 % 11.7-14.4 = 412) PLATELET COUNT (BEAKER) (test code = 756) 336 K/CU MM 150-45 0 MEAN PLATELET VOLUME (BEAKER) (test code = 754) 9.8 fL 9.4-12.3 NUCLEATED RED BLOOD CELLS (BEAKER) (test code = 0 /100 WBC 0-0 413) NEUTROPHILS RELATIVE PERCENT (BEAKER) (test code 65 % = 429) LYMPHOCYTES RELATIVE PERCENT (BEAKER) (test code 24 % = 430) MONOCYTES RELATIVE PERCENT (BEAKER) (test code = 7 % 431) EOSINOPHILS RELATIVE PERCENT (BEAKER) (test code 3 % = 432) BASOPHILS RELATIVE PERCENT (BEAKER) (test code = 0 % 437) NEUTROPHILS ABSOLUTE COUNT (BEAKER) (test code = 4.13 K/ L 1.56-6.13 670) LYMPHOCYTES ABSOLUTE COUNT (BEAKER) (test code = 1.50 K/ L 1.18-3.74 414) MONOCYTES ABSOLUTE COUNT (BEAKER) (test code = 0.44 K/ L 0 .24-0.36 415) EOSINOPHILS ABSOLUTE COUNT (BEAKER) (test code = 0.20 K/ L 0.04-0.36 416) BASOPHILS ABSOLUTE COUNT (BEAKER) (test code = 0.02 K/ L 0 .01-0.08 417) IMMATURE GRANULOCYTES-RELATIVE PERCENT (BEAKER) 1 % 0-1 (test code = 2801) POCT-GLUCOSE [id number] 07:21:00 Test Item Value Reference Range Comments POC-GLUCOSE METER (BEAKER) 146 mg/dL 70-110 TESTE D AT [facility] [address] [facility] (test code = 1538) [place] [address] POCT-GLUCOSE [id number] 22:02:00 Test Item Value Reference Range Comments POC-GLUCOSE METER (BEAKER) 201 mg/dL 70-110 TESTE D AT [facility] [address] [facility] (test code = 1538) [place] [address] POCT-GLUCOSE [id number] 18:27:00 Test Item Value Reference Range Comments POC-GLUCOSE METER (BEAKER) 240 mg/dL 70-110 TESTE D AT [address] (test code = 1538) [place] [address] POCT-GLUCOSE [id number] 12:13:00 Test Item Value Reference Range Comments POC-GLUCOSE METER (BEAKER) 193 mg/dL 70-110 TESTE D AT [address] (test code = 1538) [place] [address] POCT-GLUCOSE [id number] 09:02:00 Test Item Value Reference Range Comments POC-GLUCOSE METER (BEAKER) 132 mg/dL 70-110 TESTE D AT [address] (test code = 1538) [place] [address] CALCIUM, [id number] 05:42:00 Test Item Value Reference Range Comments CALCIUM IONIZED (BEAKER) (test code = 698) 1.12 mmol/L 1.12- 1.27 PH, BLOOD (BEAKER) (test code = 1810) 7.34 COMPREHENSIVE METABOLIC [id number] 05:33:00 Test Item Value Reference Range Comments TOTAL PROTEIN (BEAKER) 5.9 gm/dL 6.0-8.3 (test code = 770) ALBUMIN (BEAKER) (test 2.7 g/dL 3.5-5.0 code = 1145) ALKALINE PHOSPHATASE 130 U/L 40-150 (BEAKER) (test code = 346) BILIRUBIN TOTAL (BEAKER) 0.3 mg/dL 0.2-1.2 (test code = 377) SODIUM (BEAKER) (test code 135 meq/L 136-145 = 381) POTASSIUM (BEAKER) (test 4.7 meq/L 3.5-5.1 code = 379) CHLORIDE (BEAKER) (test 105 meq/L 98-107 code = 382) CO2 (BEAKER) (test code = 24 meq/L 22-29 355) BLOOD UREA NITROGEN 42 mg/dL 7-21 (BEAKER) (test code = 354) CREATININE (BEAKER) (test 1.78 mg/dL 0.57-1.25 code = 358) GLUCOSE RANDOM (BEAKER) 129 mg/dL 70-105 (test code = 652) CALCIUM (BEAKER) (test 8.5 mg/dL 8.4-10.2 code = 697) AST (SGOT) (BEAKER) (test 23 U/L 5-34 code = 353) ALT (SGPT) (BEAKER) (test 15 U/L 6-55 code = 347) EGFR (BEAKER) (test code = 29 mL/min/1.73 sq m E STIMATED GFR IS NOT 1092) ACCURATE CREA TININE CLEARANCE IN PRE DICTING GLOMERULAR FILTR ATION RATE. ESTIMATED GFR IS NOT APPLICABLE F OR DIALYSIS PATIENT S. [id number] 05:32:00 Test Item Value Reference Range Comments PHOSPHORUS (BEAKER) (test code = 604) 3.6 mg/dL 2.3-4.7 [id number] 05:32:00 Test Item Value Reference Range Comments MAGNESIUM (BEAKER) (test code = 627) 2.2 mg/dL 1.6-2.6 CBC W/PLT COUNT & AUTO [id number] 05:01:00 Test Item Value Reference Range Comments WHITE BLOOD CELL COUNT (BEAKER) (test code = 6.4 K/ L 3.5 -10.5 775) RED BLOOD CELL COUNT (BEAKER) (test code = 761) 3.43 M/ L 3.93-5.22 HEMOGLOBIN (BEAKER) (test code = 410) 8.9 GM/DL 11.2-15.7 HEMATOCRIT (BEAKER) (test code = 411) 28.9 % 34.1-44.9 MEAN CORPUSCULAR VOLUME (BEAKER) (test code = 84.3 fL 79 .4-94.8 753) MEAN CORPUSCULAR HEMOGLOBIN (BEAKER) (test code 25.9 pg 25.6-32.2 = 751) MEAN CORPUSCULAR HEMOGLOBIN CONC (BEAKER) (test 30.8 GM/DL 32.2-35.5 code = 752) RED CELL DISTRIBUTION WIDTH (BEAKER) (test code 15.0 % 11.7-14.4 = 412) PLATELET COUNT (BEAKER) (test code = 756) 324 K/CU MM 150-45 0 MEAN PLATELET VOLUME (BEAKER) (test code = 754) 9.3 fL 9.4-12.3 NUCLEATED RED BLOOD CELLS (BEAKER) (test code = 0 /100 WBC 0-0 413) NEUTROPHILS RELATIVE PERCENT (BEAKER) (test code 62 % = 429) LYMPHOCYTES RELATIVE PERCENT (BEAKER) (test code 25 % = 430) MONOCYTES RELATIVE PERCENT (BEAKER) (test code = 8 % 431) EOSINOPHILS RELATIVE PERCENT (BEAKER) (test code 4 % = 432) BASOPHILS RELATIVE PERCENT (BEAKER) (test code = 1 % 437) NEUTROPHILS ABSOLUTE COUNT (BEAKER) (test code = 3.93 K/ L 1.56-6.13 670) LYMPHOCYTES ABSOLUTE COUNT (BEAKER) (test code = 1.60 K/ L 1.18-3.74 414) MONOCYTES ABSOLUTE COUNT (BEAKER) (test code = 0.51 K/ L 0 .24-0.36 415) EOSINOPHILS ABSOLUTE COUNT (BEAKER) (test code = 0.25 K/ L 0.04-0.36 416) BASOPHILS ABSOLUTE COUNT (BEAKER) (test code = 0.03 K/ L 0 .01-0.08 417) IMMATURE GRANULOCYTES-RELATIVE PERCENT (BEAKER) 1 % 0-1 (test code = 2801) POCT-GLUCOSE [id number] 21:04:00 Test Item Value Reference Range Comments POC-GLUCOSE METER (BEAKER) 165 mg/dL 70-110 TESTE D AT [facility] [address] [facility] (test code = 1538) [place] [address] POCT-GLUCOSE [id number] 17:30:00 Test Item Value Reference Range Comments POC-GLUCOSE METER (BEAKER) 236 mg/dL 70-110 TESTE D AT [facility] [address] [facility] (test code = 1538) [place] [address] RAD, CHEST, 1 VIEW, NON [id number] 13:53:00Reason for exam:->assess for ill-defined opacityShould this [...] MDReport Verified Date/Time: 05/28/2017 13:53:03 Reading Location: [address] Radiology Reading Room POCT-GLUCOSE [id number] 11:53:00 Test Item Value Reference Range Comments POC-GLUCOSE METER (BEAKER) 215 mg/dL 70-110 TESTE D AT [address] (test code = 1538) [facility] [address] POCT-GLUCOSE [id number] 08:32:00 Test Item Value Reference Range Comments POC-GLUCOSE METER (BEAKER) 168 mg/dL 70-110 TESTE D AT [address] (test code = 1538) [facility] [address] CALCIUM, [id number] 05:44:00 Test Item Value Reference Range Comments CALCIUM IONIZED (BEAKER) (test code = 698) 1.09 mmol/L 1.12- 1.27 PH, BLOOD (BEAKER) (test code = 1810) 7.38 [id number] 05:44:00 Test Item Value Reference Range Comments PHOSPHORUS (BEAKER) (test code = 604) 3.5 mg/dL 2.3-4.7 [id number] 05:44:00 Test Item Value Reference Range Comments MAGNESIUM (BEAKER) (test code = 627) 1.9 mg/dL 1.6-2.6 BASIC METABOLIC [id number] 05:44:00 Test Item Value Reference Range Comments SODIUM (BEAKER) (test 137 meq/L 136-145 code = 381) POTASSIUM (BEAKER) (test 4.5 meq/L 3.5-5.1 code = 379) CHLORIDE (BEAKER) (test 108 meq/L 98-107 code = 382) CO2 (BEAKER) (test code = 23 meq/L 22-29 355) BLOOD UREA NITROGEN 41 mg/dL 7-21 (BEAKER) (test code = 354) CREATININE (BEAKER) (test 1.41 mg/dL 0.57-1.25 code = 358) GLUCOSE RANDOM (BEAKER) 113 mg/dL 70-105 (test code = 652) CALCIUM (BEAKER) (test 8.1 mg/dL 8.4-10.2 code = 697) EGFR (BEAKER) (test code 38 mL/min/1.73 sq m EST IMATED GFR IS NOT = 1092) ACCURATE CREA TININE CLEARANCE IN PRE DICTING GLOMERULAR FILTR ATION RATE. ESTIMATED GFR IS NOT APPLICABLE F OR DIALYSIS PATIENT S. CBC W/PLT COUNT & AUTO [id number] 05:05:00 Test Item Value Reference Range Comments WHITE BLOOD CELL COUNT (BEAKER) (test code = 6.3 K/ L 3.5 -10.5 775) RED BLOOD CELL COUNT (BEAKER) (test code = 761) 3.40 M/ L 3.93-5.22 HEMOGLOBIN (BEAKER) (test code = 410) 8.8 GM/DL 11.2-15.7 HEMATOCRIT (BEAKER) (test code = 411) 29.0 % 34.1-44.9 MEAN CORPUSCULAR VOLUME (BEAKER) (test code = 85.3 fL 79 .4-94.8 753) MEAN CORPUSCULAR HEMOGLOBIN (BEAKER) (test code 25.9 pg 25.6-32.2 = 751) MEAN CORPUSCULAR HEMOGLOBIN CONC (BEAKER) (test 30.3 GM/DL 32.2-35.5 code = 752) RED CELL DISTRIBUTION WIDTH (BEAKER) (test code 14.9 % 11.7-14.4 = 412) PLATELET COUNT (BEAKER) (test code = 756) 282 K/CU MM 150-45 0 MEAN PLATELET VOLUME (BEAKER) (test code = 754) 9.5 fL 9.4-12.3 NUCLEATED RED BLOOD CELLS (BEAKER) (test code = 0 /100 WBC 0-0 413) NEUTROPHILS RELATIVE PERCENT (BEAKER) (test code 59 % = 429) LYMPHOCYTES RELATIVE PERCENT (BEAKER) (test code 28 % = 430) MONOCYTES RELATIVE PERCENT (BEAKER) (test code = 7 % 431) EOSINOPHILS RELATIVE PERCENT (BEAKER) (test code 4 % = 432) BASOPHILS RELATIVE PERCENT (BEAKER) (test code = 1 % 437) NEUTROPHILS ABSOLUTE COUNT (BEAKER) (test code = 3.75 K/ L 1.56-6.13 670) LYMPHOCYTES ABSOLUTE COUNT (BEAKER) (test code = 1.80 K/ L 1.18-3.74 414) MONOCYTES ABSOLUTE COUNT (BEAKER) (test code = 0.45 K/ L 0 .24-0.36 415) EOSINOPHILS ABSOLUTE COUNT (BEAKER) (test code = 0.25 K/ L 0.04-0.36 416) BASOPHILS ABSOLUTE COUNT (BEAKER) (test code = 0.05 K/ L 0 .01-0.08 417) IMMATURE GRANULOCYTES-RELATIVE PERCENT (BEAKER) 1 % 0-1 (test code = 2801) POCT-GLUCOSE [id number] 21:03:00 Test Item Value Reference Range Comments POC-GLUCOSE METER (BEAKER) 173 mg/dL 70-110 TESTE D AT [facility] [address] [facility] (test code = 1538) [place] [address] [id number] 18:15:00 Test Item Value Reference Range Comments ACTIVATED CLOTTING TIME 147 [facility] [address] (BEAKER) (test code = 441) [place] [address] [id number] 18:15:00 Test Item Value Reference Range Comments ACTIVATED CLOTTING TIME 246 sec TESTED A T [facility] [address] (BEAKER) (test code = 441) [place] [address] POCT-GLUCOSE [id number] 12:39:00 Test Item Value Reference Range Comments POC-GLUCOSE METER (BEAKER) 219 mg/dL 70-110 TESTE D AT [facility] [address] [facility] (test code = 1538) [place] [address] RAD, CHEST, 1 VIEW, NON [id number] 10:11:00Reason for exam:->pl effusionShould this be performed at the bedside?->YesFINAL REPORT Chest one view compared to May 26 Discussion: There is cardiac prominence. Upper lungs are clear. Ill-defined basilar densities are similar probably atelectasis. No gross effusion or pneumothorax with bilateral chest tubes in place. Signed: Jeannette Navaeport Verified Date/Time: 05/27/2017 10:11:44 [facility] [place] [facility] Reading Room POCT-GLUCOSE METER 2017-05-27 07:05:00 Test Item Value Reference Range Comments POC-GLUCOSE METER (BEAKER) 167 mg/dL 70-110 TESTE D AT [facility] [address] [facility] (test code = 1538) [place] [address] CALCIUM, [id number] 06:20:00 Test Item Value Reference Range Comments CALCIUM IONIZED (BEAKER) (test code = 698) 0.98 mmol/L 1.12- 1.27 PH, BLOOD (BEAKER) (test code = 1810) 7.50 [id number] 04:56:00 Test Item Value Reference Range Comments PHOSPHORUS (BEAKER) (test code = 604) 2.6 mg/dL 2.3-4.7 [id number] 04:56:00 Test Item Value Reference Range Comments MAGNESIUM (BEAKER) (test code = 627) 2.0 mg/dL 1.6-2.6 BASIC METABOLIC [id number] 04:56:00 Test Item Value Reference Range Comments SODIUM (BEAKER) (test 135 meq/L 136-145 code = 381) POTASSIUM (BEAKER) (test 4.5 meq/L 3.5-5.1 code = 379) CHLORIDE (BEAKER) (test 105 meq/L 98-107 code = 382) CO2 (BEAKER) (test code = 22 meq/L 22-29 355) BLOOD UREA NITROGEN 47 mg/dL 7-21 (BEAKER) (test code = 354) CREATININE (BEAKER) (test 1.44 mg/dL 0.57-1.25 code = 358) GLUCOSE RANDOM (BEAKER) 177 mg/dL 70-105 (test code = 652) CALCIUM (BEAKER) (test 8.0 mg/dL 8.4-10.2 code = 697) EGFR (BEAKER) (test code 37 mL/min/1.73 sq m EST IMATED GFR IS NOT = 1092) ACCURATE CREA TININE CLEARANCE IN PRE DICTING GLOMERULAR FILTR ATION RATE. ESTIMATED GFR IS NOT APPLICABLE F OR DIALYSIS PATIENT S. CBC W/PLT COUNT & AUTO [id number] 04:36:00 Test Item Value Reference Range Comments WHITE BLOOD CELL COUNT (BEAKER) (test code = 6.1 K/ L 3.5 -10.5 775) RED BLOOD CELL COUNT (BEAKER) (test code = 761) 3.35 M/ L 3.93-5.22 HEMOGLOBIN (BEAKER) (test code = 410) 8.6 GM/DL 11.2-15.7 HEMATOCRIT (BEAKER) (test code = 411) 28.0 % 34.1-44.9 MEAN CORPUSCULAR VOLUME (BEAKER) (test code = 83.6 fL 79 .4-94.8 753) MEAN CORPUSCULAR HEMOGLOBIN (BEAKER) (test code 25.7 pg 25.6-32.2 = 751) MEAN CORPUSCULAR HEMOGLOBIN CONC (BEAKER) (test 30.7 GM/DL 32.2-35.5 code = 752) RED CELL DISTRIBUTION WIDTH (BEAKER) (test code 14.7 % 11.7-14.4 = 412) PLATELET COUNT (BEAKER) (test code = 756) 280 K/CU MM 150-45 0 MEAN PLATELET VOLUME (BEAKER) (test code = 754) 9.9 fL 9.4-12.3 NUCLEATED RED BLOOD CELLS (BEAKER) (test code = 0 /100 WBC 0-0 413) NEUTROPHILS RELATIVE PERCENT (BEAKER) (test code 65 % = 429) LYMPHOCYTES RELATIVE PERCENT (BEAKER) (test code 23 % = 430) MONOCYTES RELATIVE PERCENT (BEAKER) (test code = 7 % 431) EOSINOPHILS RELATIVE PERCENT (BEAKER) (test code 4 % = 432) BASOPHILS RELATIVE PERCENT (BEAKER) (test code = 1 % 437) NEUTROPHILS ABSOLUTE COUNT (BEAKER) (test code = 3.97 K/ L 1.56-6.13 670) LYMPHOCYTES ABSOLUTE COUNT (BEAKER) (test code = 1.41 K/ L 1.18-3.74 414) MONOCYTES ABSOLUTE COUNT (BEAKER) (test code = 0.44 K/ L 0 .24-0.36 415) EOSINOPHILS ABSOLUTE COUNT (BEAKER) (test code = 0.22 K/ L 0.04-0.36 416) BASOPHILS ABSOLUTE COUNT (BEAKER) (test code = 0.05 K/ L 0 .01-0.08 417) IMMATURE GRANULOCYTES-RELATIVE PERCENT (BEAKER) 1 % 0-1 (test code = 2801) POCT-GLUCOSE [id number] 21:29:00 Test Item Value Reference Range Comments POC-GLUCOSE METER (BEAKER) 147 mg/dL 70-110 TESTE D AT [address] (test code = 1538) [place] [address] POCT-GLUCOSE [id number] 17:51:00 Test Item Value Reference Range Comments POC-GLUCOSE METER (BEAKER) 224 mg/dL 70-110 TESTE D AT [address] (test code = 1538) [place] [address] POCT-GLUCOSE [id number] 13:53:00 Test Item Value Reference Range Comments POC-GLUCOSE METER (BEAKER) 182 mg/dL 70-110 TESTE D AT [address] (test code = 1538) [place] [address] RAD, CHEST, 1 VIEW, NON [id number] 08:44:00Reason for exam:->pl effusionShould this be performed at the bedside?->YesFINAL REPORT Portable chest CLINICAL HISTORY: Pleural effusion CLINICAL HISTORY: May 25, 2017. FINDINGS: The cardiac silhouette is enlarged. The patient is status post sternotomy. Bilateral chest tubes are noted. There is bibasilar atelectasis or consolidation with costophrenic angle blunting. The remaining pulmonary parenchyma demonstrates interstitial markings. A right central line is present. No pneumothorax is seen. IMPRESSION: Removal of nasogastric tube. No other significant change. Signed: Gene Ramirez Verified Date/Time: 05/26/2017 08:44:25 Reading Location: [address] Radiology Reading Room POCT- GLUCOSE [id number] 07:43:00 Test Item Value Reference Range Comments POC-GLUCOSE METER (BEAKER) 113 mg/dL 70-110 TESTE D AT [facility] [address] (test code = 1538) [place] [address] CALCIUM, [id number] 06:31:00 Test Item Value Reference Range Comments CALCIUM IONIZED (BEAKER) (test code = 698) 1.07 mmol/L 1.12- 1.27 PH, BLOOD (BEAKER) (test code = 1810) 7.38 [id number] 04:51:00 Test Item Value Reference Range Comments PHOSPHORUS (BEAKER) (test code = 604) 3.2 mg/dL 2.3-4.7 [id number] 04:51:00 Test Item Value Reference Range Comments MAGNESIUM (BEAKER) (test code = 627) 2.1 mg/dL 1.6-2.6 BASIC METABOLIC [id number] 04:51:00 Test Item Value Reference Range Comments SODIUM (BEAKER) (test 139 meq/L 136-145 code = 381) POTASSIUM (BEAKER) (test 4.1 meq/L 3.5-5.1 code = 379) CHLORIDE (BEAKER) (test 106 meq/L 98-107 code = 382) CO2 (BEAKER) (test code = 24 meq/L 22-29 355) BLOOD UREA NITROGEN 52 mg/dL 7-21 (BEAKER) (test code = 354) CREATININE (BEAKER) (test 1.52 mg/dL 0.57-1.25 code = 358) GLUCOSE RANDOM (BEAKER) 108 mg/dL 70-105 (test code = 652) CALCIUM (BEAKER) (test 8.4 mg/dL 8.4-10.2 code = 697) EGFR (BEAKER) (test code 35 mL/min/1.73 sq m EST IMATED GFR IS NOT = 1092) ACCURATE CREA TININE CLEARANCE IN PRE DICTING GLOMERULAR FILTR ATION RATE. ESTIMATED GFR IS NOT APPLICABLE F OR DIALYSIS PATIENT S. CBC W/PLT COUNT & AUTO [id number] 04:27:00 Test Item Value Reference Range Comments WHITE BLOOD CELL COUNT (BEAKER) (test code = 7.2 K/ L 3.5 -10.5 775) RED BLOOD CELL COUNT (BEAKER) (test code = 761) 3.53 M/ L 3.93-5.22 HEMOGLOBIN (BEAKER) (test code = 410) 9.1 GM/DL 11.2-15.7 HEMATOCRIT (BEAKER) (test code = 411) 29.5 % 34.1-44.9 MEAN CORPUSCULAR VOLUME (BEAKER) (test code = 83.6 fL 79 .4-94.8 753) MEAN CORPUSCULAR HEMOGLOBIN (BEAKER) (test code 25.8 pg 25.6-32.2 = 751) MEAN CORPUSCULAR HEMOGLOBIN CONC (BEAKER) (test 30.8 GM/DL 32.2-35.5 code = 752) RED CELL DISTRIBUTION WIDTH (BEAKER) (test code 14.6 % 11.7-14.4 = 412) PLATELET COUNT (BEAKER) (test code = 756) 296 K/CU MM 150-45 0 MEAN PLATELET VOLUME (BEAKER) (test code = 754) 9.5 fL 9.4-12.3 NUCLEATED RED BLOOD CELLS (BEAKER) (test code = 0 /100 WBC 0-0 413) NEUTROPHILS RELATIVE PERCENT (BEAKER) (test code 67 % = 429) LYMPHOCYTES RELATIVE PERCENT (BEAKER) (test code 21 % = 430) MONOCYTES RELATIVE PERCENT (BEAKER) (test code = 7 % 431) EOSINOPHILS RELATIVE PERCENT (BEAKER) (test code 4 % = 432) BASOPHILS RELATIVE PERCENT (BEAKER) (test code = 1 % 437) NEUTROPHILS ABSOLUTE COUNT (BEAKER) (test code = 4.79 K/ L 1.56-6.13 670) LYMPHOCYTES ABSOLUTE COUNT (BEAKER) (test code = 1.49 K/ L 1.18-3.74 414) MONOCYTES ABSOLUTE COUNT (BEAKER) (test code = 0.50 K/ L 0 .24-0.36 415) EOSINOPHILS ABSOLUTE COUNT (BEAKER) (test code = 0.30 K/ L 0.04-0.36 416) BASOPHILS ABSOLUTE COUNT (BEAKER) (test code = 0.05 K/ L 0 .01-0.08 417) IMMATURE GRANULOCYTES-RELATIVE PERCENT (BEAKER) 0 % 0-1 (test code = 2801) POCT-GLUCOSE [id number] 23:48:00 Test Item Value Reference Range Comments POC-GLUCOSE METER (BEAKER) 123 mg/dL 70-110 TESTE D AT [facility] [address] (test code = 1538) [facility] 77 030 POCT-GLUCOSE [id number] 16:46:00 Test Item Value Reference Range Comments POC-GLUCOSE METER (BEAKER) 178 mg/dL 70-110 TESTE D AT [facility] [address] (test code = 1538) [facility] 77 030 BASIC METABOLIC [id number] 05:53:00 Test Item Value Reference Range Comments SODIUM (BEAKER) (test 139 meq/L 136-145 code = 381) POTASSIUM (BEAKER) (test 3.9 meq/L 3.5-5.1 code = 379) CHLORIDE (BEAKER) (test 106 meq/L 98-107 code = 382) CO2 (BEAKER) (test code = 23 meq/L 22-29 355) BLOOD UREA NITROGEN 62 mg/dL 7-21 (BEAKER) (test code = 354) CREATININE (BEAKER) (test 2.05 mg/dL 0.57-1.25 code = 358) GLUCOSE RANDOM (BEAKER) 87 mg/dL 70-105 (test code = 652) CALCIUM (BEAKER) (test 7.9 mg/dL 8.4-10.2 code = 697) EGFR (BEAKER) (test code 25 mL/min/1.73 sq m EST IMATED GFR IS NOT = 1092) ACCURATE CREA TININE CLEARANCE IN PRE DICTING GLOMERULAR FILTR ATION RATE. ESTIMATED GFR IS NOT APPLICABLE F OR DIALYSIS PATIENT S. [id number] 05:52:00 Test Item Value Reference Range Comments PHOSPHORUS (BEAKER) (test code = 604) 4.2 mg/dL 2.3-4.7 [id number] 05:52:00 Test Item Value Reference Range Comments MAGNESIUM (BEAKER) (test code = 627) 2.3 mg/dL 1.6-2.6 CALCIUM, [id number] 05:27:00 Test Item Value Reference Range Comments CALCIUM IONIZED (BEAKER) (test code = 698) 1.12 mmol/L 1.12- 1.27 PH, BLOOD (BEAKER) (test code = 1810) 7.38 CBC W/PLT COUNT & AUTO [id number] 05:07:00 Test Item Value Reference Range Comments WHITE BLOOD CELL COUNT (BEAKER) (test code = 8.4 K/ L 3.5 -10.5 775) RED BLOOD CELL COUNT (BEAKER) (test code = 761) 3.16 M/ L 3.93-5.22 HEMOGLOBIN (BEAKER) (test code = 410) 8.2 GM/DL 11.2-15.7 HEMATOCRIT (BEAKER) (test code = 411) 26.5 % 34.1-44.9 MEAN CORPUSCULAR VOLUME (BEAKER) (test code = 83.9 fL 79 .4-94.8 753) MEAN CORPUSCULAR HEMOGLOBIN (BEAKER) (test code 25.9 pg 25.6-32.2 = 751) MEAN CORPUSCULAR HEMOGLOBIN CONC (BEAKER) (test 30.9 GM/DL 32.2-35.5 code = 752) RED CELL DISTRIBUTION WIDTH (BEAKER) (test code 14.6 % 11.7-14.4 = 412) PLATELET COUNT (BEAKER) (test code = 756) 256 K/CU MM 150-45 0 MEAN PLATELET VOLUME (BEAKER) (test code = 754) 10.0 fL 9.4-12.3 NUCLEATED RED BLOOD CELLS (BEAKER) (test code = 0 /100 WBC 0-0 413) NEUTROPHILS RELATIVE PERCENT (BEAKER) (test code 63 % = 429) LYMPHOCYTES RELATIVE PERCENT (BEAKER) (test code 25 % = 430) MONOCYTES RELATIVE PERCENT (BEAKER) (test code = 8 % 431) EOSINOPHILS RELATIVE PERCENT (BEAKER) (test code 3 % = 432) BASOPHILS RELATIVE PERCENT (BEAKER) (test code = 1 % 437) NEUTROPHILS ABSOLUTE COUNT (BEAKER) (test code = 5.27 K/ L 1.56-6.13 670) LYMPHOCYTES ABSOLUTE COUNT (BEAKER) (test code = 2.09 K/ L 1.18-3.74 414) MONOCYTES ABSOLUTE COUNT (BEAKER) (test code = 0.63 K/ L 0 .24-0.36 415) EOSINOPHILS ABSOLUTE COUNT (BEAKER) (test code = 0.27 K/ L 0.04-0.36 416) BASOPHILS ABSOLUTE COUNT (BEAKER) (test code = 0.05 K/ L 0 .01-0.08 417) IMMATURE GRANULOCYTES-RELATIVE PERCENT (BEAKER) 1 % 0-1 (test code = 2801) RAD, CHEST, 1 VIEW, NON [id number] 04:45:00Reason for exam:->pl effusionShould this be performed at the bedside?->YesFINAL REPORT RAD, CHEST, 1 VIEW, NON DEPT INDICATION: pl effusion COMPARISON:Prior day's exam FINDINGS: Portable frontal view of the chest. IMPRESSION: Support Lines: Stable.Lungs and pleura: Unchanged airspace and pleural opacities. No pneumothorax.Heart and mediastinum: Stable contours. Stable surgical changes.Additional findings: None. Signed: JR Boswell Robert MDReport Verified Date/Time: 05/25/2017 04:45:08 Reading Location: [address] Body Reading Room POCT-GLUCOSE [id number] 01:52:00 Test Item Value Reference Range Comments POC-GLUCOSE METER (BEAKER) 126 mg/dL 70-110 TESTE D AT [address] (test code = 1538) [place] [address] POCT-GLUCOSE [id number] 13:07:00 Test Item Value Reference Range Comments POC-GLUCOSE METER (BEAKER) 118 mg/dL 70-110 TESTE D AT [address] (test code = 1538) [place] [address] BRONCHIAL CULTURE + GRAM [id number] 11:35:00 Test Item Value Reference Range Comments CULTURE (BEAKER) (test code = 1095) Amikacin (test code = 1) Susceptible 0-16 , Resistant <0 or >16 Aztreonam (test code = Susceptible 0-8 , 32) Resistant <0 or >8 Cefepime (test code = 51) Susceptible 0-8 , Resistant <0 or >8 Ceftazidime (test code = Susceptible 0-8 , 27) Resistant <0 or >8 Ciprofloxacin (test code Susceptible 0-1 , = 7) Resistant <0 or >1 Gentamicin (test code = Susceptible 0-4 , 18) Resistant <0 or >4 Imipenem (test code = 19) Susceptible 0-4 , Resistant <0 or >4 Levofloxacin (test code = Susceptible 0-2 , 22) Resistant <0 or >2 Meropenem (test code = Susceptible 0-4 , 34) Resistant <0 or >4 Piperacillin + Tazobactam Susceptible 0-16 , (test code = 29) Resistant <0 or >16 Tobramycin (test code = Susceptible 0-4 , 25) Resistant <0 or >4 Trimethoprim + Susceptible 0-40 , Sulfamethoxazole (test Resistant <0 or >40 code = 47) CULTURE (BEAKER) (test 4+ [employer] cardona code = 1095) bronchiseptica GRAM STAIN RESULT 1+ WBCs (BEAKER) (test code = 1123) GRAM STAIN RESULT <1+ gram positive (BEAKER) (test code = cocci in pairs [id number]) GRAM STAIN RESULT 1+ gram variable (BEAKER) (test code = rods [id number]) 1+ Normal respiratory todd presentRAD, CHEST, 1 VIEW, NON [id number] 06:50:00Reason for exam:->pl effusionShould this be performed at the bedside?->YesFINAL REPORT RAD, CHEST, 1 VIEW, NON DEPT INDICATION: pl effusion COMPARISON:Prior day's exam FINDINGS: Portable frontal view of the chest. IMPRESSION: Support Lines: Stable.Lungs and pleura: Unchanged airspace and pleural opacities. No pneumothorax.Heart and mediastinum: Stable contours. Stable surgical changes.Additional findings: None. Signed: JR Boswell Robert MDReport Verified Date/Time: 05/24/2017 06:50:08 Reading Location: [address] Body Reading Room BASIC METABOLIC [id number] 04:19:00 Test Item Value Reference Range Comments SODIUM (BEAKER) (test 136 meq/L 136-145 code = 381) POTASSIUM (BEAKER) (test 4.3 meq/L 3.5-5.1 code = 379) CHLORIDE (BEAKER) (test 104 meq/L 98-107 code = 382) CO2 (BEAKER) (test code = 20 meq/L 22-29 355) BLOOD UREA NITROGEN 61 mg/dL 7-21 (BEAKER) (test code = 354) CREATININE (BEAKER) (test 2.69 mg/dL 0.57-1.25 code = 358) GLUCOSE RANDOM (BEAKER) 107 mg/dL 70-105 (test code = 652) CALCIUM (BEAKER) (test 7.8 mg/dL 8.4-10.2 code = 697) EGFR (BEAKER) (test code 18 mL/min/1.73 sq m EST IMATED GFR IS NOT = 1092) ACCURATE CREA TININE CLEARANCE IN PRE DICTING GLOMERULAR FILTR ATION RATE. ESTIMATED GFR IS NOT APPLICABLE F OR DIALYSIS PATIENT S. CALCIUM, [id number] 04:16:00 Test Item Value Reference Range Comments CALCIUM IONIZED (BEAKER) (test code = 698) 1.06 mmol/L 1.12- 1.27 PH, BLOOD (BEAKER) (test code = 1810) 7.40 [id number] 04:11:00 Test Item Value Reference Range Comments PHOSPHORUS (BEAKER) (test code = 604) 6.0 mg/dL 2.3-4.7 [id number] 04:11:00 Test Item Value Reference Range Comments MAGNESIUM (BEAKER) (test code = 627) 2.4 mg/dL 1.6-2.6 CBC W/PLT COUNT & AUTO [id number] 03:50:00 Test Item Value Reference Range Comments WHITE BLOOD CELL COUNT (BEAKER) (test code = 9.5 K/ L 3.5 -10.5 775) RED BLOOD CELL COUNT (BEAKER) (test code = 761) 3.06 M/ L 3.93-5.22 HEMOGLOBIN (BEAKER) (test code = 410) 7.9 GM/DL 11.2-15.7 HEMATOCRIT (BEAKER) (test code = 411) 25.5 % 34.1-44.9 MEAN CORPUSCULAR VOLUME (BEAKER) (test code = 83.3 fL 79 .4-94.8 753) MEAN CORPUSCULAR HEMOGLOBIN (BEAKER) (test code 25.8 pg 25.6-32.2 = 751) MEAN CORPUSCULAR HEMOGLOBIN CONC (BEAKER) (test 31.0 GM/DL 32.2-35.5 code = 752) RED CELL DISTRIBUTION WIDTH (BEAKER) (test code 15.1 % 11.7-14.4 = 412) PLATELET COUNT (BEAKER) (test code = 756) 224 K/CU MM 150-45 0 MEAN PLATELET VOLUME (BEAKER) (test code = 754) 10.5 fL 9.4-12.3 NUCLEATED RED BLOOD CELLS (BEAKER) (test code = 0 /100 WBC 0-0 413) NEUTROPHILS RELATIVE PERCENT (BEAKER) (test code 70 % = 429) LYMPHOCYTES RELATIVE PERCENT (BEAKER) (test code 21 % = 430) MONOCYTES RELATIVE PERCENT (BEAKER) (test code = 7 % 431) EOSINOPHILS RELATIVE PERCENT (BEAKER) (test code 2 % = 432) BASOPHILS RELATIVE PERCENT (BEAKER) (test code = 0 % 437) NEUTROPHILS ABSOLUTE COUNT (BEAKER) (test code = 6.60 K/ L 1.56-6.13 670) LYMPHOCYTES ABSOLUTE COUNT (BEAKER) (test code = 2.02 K/ L 1.18-3.74 414) MONOCYTES ABSOLUTE COUNT (BEAKER) (test code = 0.63 K/ L 0 .24-0.36 415) EOSINOPHILS ABSOLUTE COUNT (BEAKER) (test code = 0.15 K/ L 0.04-0.36 416) BASOPHILS ABSOLUTE COUNT (BEAKER) (test code = 0.04 K/ L 0 .01-0.08 417) IMMATURE GRANULOCYTES-RELATIVE PERCENT (BEAKER) 0 % 0-1 (test code = 2801) POCT-GLUCOSE [id number] 20:45:00 Test Item Value Reference Range Comments POC-GLUCOSE METER (BEAKER) 143 mg/dL 70-110 TESTE D AT [address] (test code = 1538) [place] [address] POCT-GLUCOSE [id number] 20:45:00 Test Item Value Reference Range Comments POC-GLUCOSE METER (BEAKER) 145 mg/dL 70-110 TESTE D AT [address] (test code = 1538) [place] [address] [id number] 13:37:00 Test Item Value Reference Range Comments PREALBUMIN (BEAKER) (test code = 10 mg/dL 14-45 Specimen slightly hemolyzed 586) OXYGEN SATURATION, [id number] 12:31:00 Test Item Value Reference Range Comments O2 SATURATION (MEASURED) (BEAKER) (test code = 1455) 94.5 % [id number] 11:02:00 Test Item Value Reference Range Comments PREALBUMIN (BEAKER) (test code = 586) 10 mg/dL 14-45 RAD, CHEST, 1 VIEW, NON [id number] 05:14:00while patient is intubated or has chest [...] changes.Additional findings: None. Signed: JR Boswell Robert MDRepemily Verified Date/Time: 05/23/2017 05:14:04 Reading Location: [address] Body Reading Room BASIC METABOLIC [id number] 03:48:00 Test Item Value Reference Range Comments SODIUM (BEAKER) (test 138 meq/L 136-145 code = 381) POTASSIUM (BEAKER) (test 4.6 meq/L 3.5-5.1 Specime n slightly code = 379) hemolyzed CHLORIDE (BEAKER) (test 106 meq/L 98-107 code = 382) CO2 (BEAKER) (test code = 20 meq/L 22-29 355) BLOOD UREA NITROGEN 54 mg/dL 7-21 (BEAKER) (test code = 354) CREATININE (BEAKER) (test 2.66 mg/dL 0.57-1.25 Specim en slightly code = 358) hemolyzed GLUCOSE RANDOM (BEAKER) 113 mg/dL 70-105 (test code = 652) CALCIUM (BEAKER) (test 7.9 mg/dL 8.4-10.2 code = 697) EGFR (BEAKER) (test code 18 mL/min/1.73 sq m EST IMATED GFR IS NOT = 1092) ACCURATE CREA TININE CLEARANCE IN PRE DICTING GLOMERULAR FILTR ATION RATE. ESTIMATED GFR IS NOT APPLICABLE F OR DIALYSIS PATIENT S. [id number] 03:46:00 Test Item Value Reference Range Comments MAGNESIUM (BEAKER) (test code = 2.4 mg/dL 1.6-2.6 Specimen slightly hemolyzed 627) [id number] 03:46:00 Test Item Value Reference Range Comments PHOSPHORUS (BEAKER) (test code 6.5 mg/dL 2.3-4.7 S pecimen slightly hemolyzed = 604) CBC W/PLT COUNT & AUTO [id number] 03:26:00 Test Item Value Reference Range Comments WHITE BLOOD CELL COUNT (BEAKER) (test code = 10.8 K/ L 3.5 -10.5 775) RED BLOOD CELL COUNT (BEAKER) (test code = 761) 3.16 M/ L 3.93-5.22 HEMOGLOBIN (BEAKER) (test code = 410) 8.2 GM/DL 11.2-15.7 HEMATOCRIT (BEAKER) (test code = 411) 26.6 % 34.1-44.9 MEAN CORPUSCULAR VOLUME (BEAKER) (test code = 84.2 fL 79 .4-94.8 753) MEAN CORPUSCULAR HEMOGLOBIN (BEAKER) (test code 25.9 pg 25.6-32.2 = 751) MEAN CORPUSCULAR HEMOGLOBIN CONC (BEAKER) (test 30.8 GM/DL 32.2-35.5 code = 752) RED CELL DISTRIBUTION WIDTH (BEAKER) (test code 15.0 % 11.7-14.4 = 412) PLATELET COUNT (BEAKER) (test code = 756) 195 K/CU MM 150-45 0 MEAN PLATELET VOLUME (BEAKER) (test code = 754) 10.6 fL 9.4-12.3 NUCLEATED RED BLOOD CELLS (BEAKER) (test code = 0 /100 WBC 0-0 413) NEUTROPHILS RELATIVE PERCENT (BEAKER) (test code 73 % = 429) LYMPHOCYTES RELATIVE PERCENT (BEAKER) (test code 18 % = 430) MONOCYTES RELATIVE PERCENT (BEAKER) (test code = 6 % 431) EOSINOPHILS RELATIVE PERCENT (BEAKER) (test code 2 % = 432) BASOPHILS RELATIVE PERCENT (BEAKER) (test code = 1 % 437) NEUTROPHILS ABSOLUTE COUNT (BEAKER) (test code = 7.95 K/ L 1.56-6.13 670) LYMPHOCYTES ABSOLUTE COUNT (BEAKER) (test code = 1.93 K/ L 1.18-3.74 414) MONOCYTES ABSOLUTE COUNT (BEAKER) (test code = 0.66 K/ L 0 .24-0.36 415) EOSINOPHILS ABSOLUTE COUNT (BEAKER) (test code = 0.18 K/ L 0.04-0.36 416) BASOPHILS ABSOLUTE COUNT (BEAKER) (test code = 0.07 K/ L 0 .01-0.08 417) IMMATURE GRANULOCYTES-RELATIVE PERCENT (BEAKER) 0 % 0-1 (test code = 2801) BLOOD GAS, [id number] 03:18:00 Test Item Value Reference Range Comments PH ARTERIAL (BEAKER) (test code = 383) 7.40 7.35-7.45 PCO2 ARTERIAL (BEAKER) (test code = 384) 40 mmHg 35-45 PO2 ARTERIAL (BEAKER) (test code = 385) 63 mmHg 80-90 O2 SATURATION ARTERIAL (BEAKER) (test code = 92.3 % 96. 0-97.0 386) HCO3 ARTERIAL (BEAKER) (test code = 388) 24 mmol/L 21-29 BASE EXCESS ARTERIAL (BEAKER) (test code = 387) -0.6 mmol/L -2.0-3.0 PATIENT TEMPERATURE (BEAKER) (test code = 1818) 36.8 C FIO2 (BEAKER) (test code = 1819) 36.0 % CALCIUM, [id number] 16:32:00 Test Item Value Reference Range Comments CALCIUM IONIZED (BEAKER) (test code = 698) 1.11 mmol/L 1.12- 1.27 PH, BLOOD (BEAKER) (test code = 1810) 7.39 BASIC METABOLIC [id number] 15:43:00 Test Item Value Reference Range Comments SODIUM (BEAKER) (test 139 meq/L 136-145 code = 381) POTASSIUM (BEAKER) (test 4.6 meq/L 3.5-5.1 code = 379) CHLORIDE (BEAKER) (test 106 meq/L 98-107 code = 382) CO2 (BEAKER) (test code = 21 meq/L 22-29 355) BLOOD UREA NITROGEN 54 mg/dL 7-21 (BEAKER) (test code = 354) CREATININE (BEAKER) (test 3.08 mg/dL 0.57-1.25 code = 358) GLUCOSE RANDOM (BEAKER) 116 mg/dL 70-105 (test code = 652) CALCIUM (BEAKER) (test 8.1 mg/dL 8.4-10.2 code = 697) EGFR (BEAKER) (test code 15 mL/min/1.73 sq m EST IMATED GFR IS NOT = 1092) ACCURATE CREA TININE CLEARANCE IN PRE DICTING GLOMERULAR FILTR ATION RATE. ESTIMATED GFR IS NOT APPLICABLE F OR DIALYSIS PATIENT S. POCT-GLUCOSE [id number] 12:53:00 Test Item Value Reference Range Comments POC-GLUCOSE METER (BEAKER) 118 mg/dL 70-110 TESTE D AT [address] (test code = 1538) [place] [address] BLOOD GAS, [id number] 10:42:00 Test Item Value Reference Range Comments PH ARTERIAL (BEAKER) (test code = 383) 7.40 7.35-7.45 PCO2 ARTERIAL (BEAKER) (test code = 384) 38 mmHg 35-45 PO2 ARTERIAL (BEAKER) (test code = 385) 78 mmHg 80-90 O2 SATURATION ARTERIAL (BEAKER) (test code = 95.6 % 96. 0-97.0 386) HCO3 ARTERIAL (BEAKER) (test code = 388) 23 mmol/L 21-29 BASE EXCESS ARTERIAL (BEAKER) (test code = 387) -1.4 mmol/L -2.0-3.0 PATIENT TEMPERATURE (BEAKER) (test code = 1818) 36.9 C FIO2 (BEAKER) (test code = 1819) 40.0 % POCT-GLUCOSE [id number] 06:46:00 Test Item Value Reference Range Comments POC-GLUCOSE METER (BEAKER) 106 mg/dL 70-110 TESTE D AT [address] (test code = 1538) [place] [address] RAD, CHEST, 1 VIEW, NON [id number] 05:05:00while patient is intubated or has chest tubes.Reason for exam:->chest tubesShould this be performed at the bedside?->YesFINAL REPORT RAD, CHEST, 1 VIEW, NON DEPT INDICATION: chest tubes COMPARISON:Prior day's exam FINDINGS: Portable frontal view of the chest. IMPRESSION: Support Lines: Stable.Lungs and pleura: No new consolidation. Persistent small volume right effusion. No pneumothorax.Heart and mediastinum: Stable contours. Sternotomy wires are intact. Prominence of the right superior mediastinum is stable from the preoperative exam.Additional findings: None. Signed: JR Boswell Robert MDReport Verified Date/Time: 05/22/2017 05:05:00 Reading Location: [facility] B1 C[address] CT Body ReadingRoom BASIC METABOLIC [id number] 05:00:00 Test Item Value Reference Range Comments SODIUM (BEAKER) (test 138 meq/L 136-145 code = 381) POTASSIUM (BEAKER) (test 4.5 meq/L 3.5-5.1 code = 379) CHLORIDE (BEAKER) (test 107 meq/L 98-107 code = 382) CO2 (BEAKER) (test code = 21 meq/L 22-29 355) BLOOD UREA NITROGEN 53 mg/dL 7-21 (BEAKER) (test code = 354) CREATININE (BEAKER) (test 3.23 mg/dL 0.57-1.25 code = 358) GLUCOSE RANDOM (BEAKER) 126 mg/dL 70-105 (test code = 652) CALCIUM (BEAKER) (test 8.1 mg/dL 8.4-10.2 code = 697) EGFR (BEAKER) (test code 15 mL/min/1.73 sq m EST IMATED GFR IS NOT = 1092) ACCURATE CREA TININE CLEARANCE IN PRE DICTING GLOMERULAR FILTR ATION RATE. ESTIMATED GFR IS NOT APPLICABLE F OR DIALYSIS PATIENT S. [id number] 04:41:00 Test Item Value Reference Range Comments PHOSPHORUS (BEAKER) (test code = 604) 6.4 mg/dL 2.3-4.7 [id number] 04:41:00 Test Item Value Reference Range Comments MAGNESIUM (BEAKER) (test code = 627) 2.6 mg/dL 1.6-2.6 CALCIUM, [id number] 04:26:00 Test Item Value Reference Range Comments CALCIUM IONIZED (BEAKER) (test code = 698) 1.09 mmol/L 1.12- 1.27 PH, BLOOD (BEAKER) (test code = 1810) 7.40 OXYGEN SATURATION, [id number] 04:25:00 Test Item Value Reference Range Comments O2 SATURATION (MEASURED) (BEAKER) (test code = 1455) 77.0 % CBC W/PLT COUNT & AUTO [id number] 04:17:00 Test Item Value Reference Range Comments WHITE BLOOD CELL COUNT (BEAKER) (test code = 8.9 K/ L 3.5 -10.5 775) RED BLOOD CELL COUNT (BEAKER) (test code = 761) 3.14 M/ L 3.93-5.22 HEMOGLOBIN (BEAKER) (test code = 410) 8.1 GM/DL 11.2-15.7 HEMATOCRIT (BEAKER) (test code = 411) 26.1 % 34.1-44.9 MEAN CORPUSCULAR VOLUME (BEAKER) (test code = 83.1 fL 79 .4-94.8 753) MEAN CORPUSCULAR HEMOGLOBIN (BEAKER) (test code 25.8 pg 25.6-32.2 = 751) MEAN CORPUSCULAR HEMOGLOBIN CONC (BEAKER) (test 31.0 GM/DL 32.2-35.5 code = 752) RED CELL DISTRIBUTION WIDTH (BEAKER) (test code 15.3 % 11.7-14.4 = 412) PLATELET COUNT (BEAKER) (test code = 756) 156 K/CU MM 150-45 0 MEAN PLATELET VOLUME (BEAKER) (test code = 754) 10.2 fL 9.4-12.3 NUCLEATED RED BLOOD CELLS (BEAKER) (test code = 0 /100 WBC 0-0 413) NEUTROPHILS RELATIVE PERCENT (BEAKER) (test code 68 % = 429) LYMPHOCYTES RELATIVE PERCENT (BEAKER) (test code 22 % = 430) MONOCYTES RELATIVE PERCENT (BEAKER) (test code = 8 % 431) EOSINOPHILS RELATIVE PERCENT (BEAKER) (test code 1 % = 432) BASOPHILS RELATIVE PERCENT (BEAKER) (test code = 1 % 437) NEUTROPHILS ABSOLUTE COUNT (BEAKER) (test code = 6.05 K/ L 1.56-6.13 670) LYMPHOCYTES ABSOLUTE COUNT (BEAKER) (test code = 1.91 K/ L 1.18-3.74 414) MONOCYTES ABSOLUTE COUNT (BEAKER) (test code = 0.74 K/ L 0 .24-0.36 415) EOSINOPHILS ABSOLUTE COUNT (BEAKER) (test code = 0.08 K/ L 0.04-0.36 416) BASOPHILS ABSOLUTE COUNT (BEAKER) (test code = 0.05 K/ L 0 .01-0.08 417) IMMATURE GRANULOCYTES-RELATIVE PERCENT (BEAKER) 0 % 0-1 (test code = 2801) LACTIC ACID, ARTERIAL, WHOLE [id number] 00:07:00 Test Item Value Reference Range Comments LACTATE BLOOD ARTERIAL (2) 1.0 mmol/L 0.5-2.2 Speci men slightly hemolyzed (BEAKER) (test code = 2874) Effective 08/02/2015: Units/Reference Range ChangeNew: 0.5-2.2 mmol/L Previous: 5-20 mg/dLPOCT-GLUCOSE [id number] 23:47:00 Test Item Value Reference Range Comments POC-GLUCOSE METER (BEAKER) 180 mg/dL 70-110 TESTE D AT [facility] [address] [facility] (test code = 1538) [facility] [address] BLOOD GAS, [id number] 23:46:00 Test Item Value Reference Range Comments PH ARTERIAL (BEAKER) (test code = 383) 7.40 7.35-7.45 PCO2 ARTERIAL (BEAKER) (test code = 384) 37 mmHg 35-45 PO2 ARTERIAL (BEAKER) (test code = 385) 136 mmHg 80-90 O2 SATURATION ARTERIAL (BEAKER) (test code = 98.7 % 96. 0-97.0 386) HCO3 ARTERIAL (BEAKER) (test code = 388) 22 mmol/L 21-29 BASE EXCESS ARTERIAL (BEAKER) (test code = 387) -2.4 mmol/L -2.0-3.0 PATIENT TEMPERATURE (BEAKER) (test code = 1818) 37.0 C FIO2 (BEAKER) (test code = 1819) 100.0 % SODIUM NA-STAT [id number] 23:46:00 Test Item Value Reference Range Comments SODIUM (BEAKER) (test code = 381) 134 meq/L 135-148 GLUCOSE-STAT [id number] 23:46:00 Test Item Value Reference Range Comments GLUCOSE RANDOM (BEAKER) (test code = 652) 119 mg/dL 70-110 HGB/HCT (H&H) - STAT [id number] 23:46:00 Test Item Value Reference Range Comments HEMOGLOBIN (BEAKER) (test code = 410) 8.8 g/dL 12.0-15.0 HEMATOCRIT (BEAKER) (test code = 411) 26.0 % 36.0-45.0 OXYGEN SATURATION, [id number] 23:45:00 Test Item Value Reference Range Comments O2 SATURATION (MEASURED) (BEAKER) (test code = 1455) 68.1 % POTASSIUM-STAT [id number] 23:45:00 Test Item Value Reference Range Comments POTASSIUM (BEAKER) (test code = 379) 5.5 meq/L 3.6-5.5 POCT-GLUCOSE [id number] 20:58:00 Test Item Value Reference Range Comments POC-GLUCOSE METER (BEAKER) 133 mg/dL 70-110 TESTE D AT [address] (test code = 1538) [place] [address] POCT-GLUCOSE [id number] 17:58:00 Test Item Value Reference Range Comments POC-GLUCOSE METER (BEAKER) 210 mg/dL 70-110 TESTE D AT [address] (test code = 1538) [place] [address] POCT-GLUCOSE [id number] 17:58:00 Test Item Value Reference Range Comments POC-GLUCOSE METER (BEAKER) 211 mg/dL 70-110 TESTE D AT [address] (test code = 1538) [place] [address] POCT-GLUCOSE [id number] 17:58:00 Test Item Value Reference Range Comments POC-GLUCOSE METER (BEAKER) 232 mg/dL 70-110 TESTE D AT [address] (test code = 1538) [place] [address] POCT-GLUCOSE [id number] 17:58:00 Test Item Value Reference Range Comments POC-GLUCOSE METER (BEAKER) 262 mg/dL 70-110 TESTE D AT [address] (test code = 1538) [place] [address] BLOOD GAS, [id number] 17:01:00 Test Item Value Reference Range Comments PH ARTERIAL (BEAKER) (test code = 383) 7.38 7.35-7.45 PCO2 ARTERIAL (BEAKER) (test code = 384) 39 mmHg 35-45 PO2 ARTERIAL (BEAKER) (test code = 385) 75 mmHg 80-90 O2 SATURATION ARTERIAL (BEAKER) (test code = 94.9 % 96. 0-97.0 386) HCO3 ARTERIAL (BEAKER) (test code = 388) 23 mmol/L 21-29 BASE EXCESS ARTERIAL (BEAKER) (test code = 387) -2.5 mmol/L -2.0-3.0 PATIENT TEMPERATURE (BEAKER) (test code = 1818) 36.8 C FIO2 (BEAKER) (test code = 1819) 60.0 % POTASSIUM-STAT [id number] 17:00:00 Test Item Value Reference Range Comments POTASSIUM (BEAKER) (test code = 379) 4.8 meq/L 3.6-5.5 POCT-GLUCOSE [id number] 15:52:00 Test Item Value Reference Range Comments POC-GLUCOSE METER (BEAKER) 267 mg/dL 70-110 TESTE D AT [address] (test code = 1538) [place] [address] POCT-GLUCOSE [id number] 14:42:00 Test Item Value Reference Range Comments POC-GLUCOSE METER (BEAKER) 231 mg/dL 70-110 TESTE D AT [address] (test code = 1538) [place] [address] BODY FLUID CELL COUNT WITH [id number] 14:41:00 Test Item Value Reference Range Comments APPEARANCE FLUID (BEAKER) (test code = 510) Turbid Temi r COLOR FLUID (BEAKER) (test code = 511) Colorless Colorless , Straw RBC FLUID (BEAKER) (test code = 513) 2000 /cu mm <=1 ADJUSTED WBC FLUID (BEAKER) (test code = 1691) 1489 /cu mm < =5 LINING CELLS (BEAKER) (test code = 1590) 119 /cu mm <=1 NEUTROPHILS FLUID (BEAKER) (test code = 1656) 40 % LYMPHS FLUID (BEAKER) (test code = 488) 34 % MONO/MACROPHAGE FLUID (BEAKER) (test code = 26 % 489) EOSINOPHILS FLUID (BEAKER) (test code = 491) 0 % BASO FLUID (BEAKER) (test code = 492) 0 % CONTAINER BODY FLUID (BEAKER) (test code = EDTA Tube 8313) BASIC METABOLIC [id number] 14:11:00 Test Item Value Reference Range Comments SODIUM (BEAKER) (test 137 meq/L 136-145 code = 381) POTASSIUM (BEAKER) (test 5.6 meq/L 3.5-5.1 code = 379) CHLORIDE (BEAKER) (test 106 meq/L 98-107 code = 382) CO2 (BEAKER) (test code = 20 meq/L 22-29 355) BLOOD UREA NITROGEN 48 mg/dL 7-21 (BEAKER) (test code = 354) CREATININE (BEAKER) (test 2.50 mg/dL 0.57-1.25 code = 358) GLUCOSE RANDOM (BEAKER) 221 mg/dL 70-105 (test code = 652) CALCIUM (BEAKER) (test 8.1 mg/dL 8.4-10.2 code = 697) EGFR (BEAKER) (test code 20 mL/min/1.73 sq m EST IMATED GFR IS NOT = 1092) ACCURATE CREA TININE CLEARANCE IN PRE DICTING GLOMERULAR FILTR ATION RATE. ESTIMATED GFR IS NOT APPLICABLE F OR DIALYSIS PATIENT S. [id number] 14:08:00 Test Item Value Reference Range Comments PHOSPHORUS (BEAKER) (test code = 604) 7.2 mg/dL 2.3-4.7 [id number] 14:08:00 Test Item Value Reference Range Comments MAGNESIUM (BEAKER) (test code = 627) 2.6 mg/dL 1.6-2.6 POCT-GLUCOSE [id number] 12:49:00 Test Item Value Reference Range Comments POC-GLUCOSE METER (BEAKER) 224 mg/dL 70-110 TESTE D AT [facility] [address] [facility] (test code = 1538) [place] [id number] POCT-GLUCOSE [id number] 12:49:00 Test Item Value Reference Range Comments POC-GLUCOSE METER (BEAKER) 248 mg/dL 70-110 TESTE D AT [facility] [address] [facility] (test code = 1538) [place] [phone] RAD, CHEST, 1 VIEW, NON [id number] 12:32:00Reason for exam:->re-intubationShould this be performed at the bedside?->YesFINAL REPORT [...] MDReport Verified Date/Time: 05/21/2017 12:32:08 Reading Location: [facility] Radiology Reading Room POTASSIUM-STAT [id number] 12:28:00 Test Item Value Reference Range Comments POTASSIUM (BEAKER) (test code = 379) 5.5 meq/L 3.6-5.5 BLOOD GAS, [id number] 12:28:00 Test Item Value Reference Range Comments PH ARTERIAL (BEAKER) (test code = 383) 7.32 7.35-7.45 PCO2 ARTERIAL (BEAKER) (test code = 384) 45 mmHg 35-45 PO2 ARTERIAL (BEAKER) (test code = 385) 304 mmHg 80-90 O2 SATURATION ARTERIAL (BEAKER) (test code = 99.7 % 96. 0-97.0 386) HCO3 ARTERIAL (BEAKER) (test code = 388) 22 mmol/L 21-29 BASE EXCESS ARTERIAL (BEAKER) (test code = 387) -3.7 mmol/L -2.0-3.0 PATIENT TEMPERATURE (BEAKER) (test code = 1818) 37.0 C FIO2 (BEAKER) (test code = 1819) 100.0 % BLOOD GAS, [id number] 10:53:00 Test Item Value Reference Range Comments PH ARTERIAL (BEAKER) (test code = 383) 7.36 7.35-7.45 PCO2 ARTERIAL (BEAKER) (test code = 384) 35 mmHg 35-45 PO2 ARTERIAL (BEAKER) (test code = 385) 40 mmHg 80-90 O2 SATURATION ARTERIAL (BEAKER) (test code = 82.3 % 96. 0-97.0 386) HCO3 ARTERIAL (BEAKER) (test code = 388) 20 mmol/L 21-29 BASE EXCESS ARTERIAL (BEAKER) (test code = 387) -5.9 mmol/L -2.0-3.0 PATIENT TEMPERATURE (BEAKER) (test code = 1818) 33.7 C FIO2 (BEAKER) (test code = 1819) 36.0 % RAD, CHEST, 1 VIEW, NON [id number] 08:46:00while patient is intubated or has chest [...] is suspected. Signed: Magdalena White MDReport Verified Date/Time: 05/21/2017 08:46:27 Reading Location: [facility] Radiology Reading Room BLOOD GAS, [id number] 05:41:00 Test Item Value Reference Range Comments PH ARTERIAL (BEAKER) (test code = 383) 7.33 7.35-7.45 PCO2 ARTERIAL (BEAKER) (test code = 384) 40 mm Hg 35-45 PO2 ARTERIAL (BEAKER) (test code = 385) 106 mm Hg 80-90 O2 SATURATION ARTERIAL (BEAKER) (test code = 97.5 % 96. 0-97.0 386) HCO3 ARTERIAL (BEAKER) (test code = 388) 21 mmol/L 21-29 BASE EXCESS ARTERIAL (BEAKER) (test code = 387) -5.1 mmol/L -2.0-3.0 PATIENT TEMPERATURE (BEAKER) (test code = 1818) 37.0 FIO2 (BEAKER) (test code = 1819) 40 CALCIUM, [id number] 04:35:00 Test Item Value Reference Range Comments CALCIUM IONIZED (BEAKER) (test code = 698) 1.13 mmol/L 1.12- 1.27 PH, BLOOD (BEAKER) (test code = 1810) 7.32 BLOOD GAS, [id number] 04:28:00 Test Item Value Reference Range Comments PH ARTERIAL (BEAKER) (test code = 383) 7.32 7.35-7.45 PCO2 ARTERIAL (BEAKER) (test code = 384) 40 mmHg 35-45 PO2 ARTERIAL (BEAKER) (test code = 385) 100 mmHg 80-90 O2 SATURATION ARTERIAL (BEAKER) (test code = 97.2 % 96. 0-97.0 386) HCO3 ARTERIAL (BEAKER) (test code = 388) 20 mmol/L 21-29 BASE EXCESS ARTERIAL (BEAKER) (test code = 387) -5.7 mmol/L -2.0-3.0 PATIENT TEMPERATURE (BEAKER) (test code = 1818) 36.9 C FIO2 (BEAKER) (test code = 1819) 40.0 % [id number] 04:20:00 Test Item Value Reference Range Comments PHOSPHORUS (BEAKER) (test code = 604) 6.2 mg/dL 2.3-4.7 [id number] 04:20:00 Test Item Value Reference Range Comments MAGNESIUM (BEAKER) (test code = 627) 2.4 mg/dL 1.6-2.6 HEPATIC FUNCTION [id number] 04:20:00 Test Item Value Reference Range Comments TOTAL PROTEIN (BEAKER) (test code = 770) 4.8 gm/dL 6.0-8.3 ALBUMIN (BEAKER) (test code = 1145) 2.5 g/dL 3.5-5.0 BILIRUBIN TOTAL (BEAKER) (test code = 377) 0.7 mg/dL 0.2-1 .2 BILIRUBIN DIRECT (BEAKER) (test code = 706) 0.3 mg/dL 0.1- 0.5 ALKALINE PHOSPHATASE (BEAKER) (test code = 346) 96 U/L 40-150 AST (SGOT) (BEAKER) (test code = 353) 31 U/L 5-34 ALT (SGPT) (BEAKER) (test code = 347) 11 U/L 6-55 BASIC METABOLIC [id number] 04:20:00 Test Item Value Reference Range Comments SODIUM (BEAKER) (test 134 meq/L 136-145 code = 381) POTASSIUM (BEAKER) (test 5.0 meq/L 3.5-5.1 code = 379) CHLORIDE (BEAKER) (test 105 meq/L 98-107 code = 382) CO2 (BEAKER) (test code = 18 meq/L 22-29 355) BLOOD UREA NITROGEN 45 mg/dL 7-21 (BEAKER) (test code = 354) CREATININE (BEAKER) (test 1.91 mg/dL 0.57-1.25 code = 358) GLUCOSE RANDOM (BEAKER) 247 mg/dL 70-105 (test code = 652) CALCIUM (BEAKER) (test 7.9 mg/dL 8.4-10.2 code = 697) EGFR (BEAKER) (test code 27 mL/min/1.73 sq m EST IMATED GFR IS NOT = 1092) ACCURATE CREA TININE CLEARANCE IN PRE DICTING GLOMERULAR FILTR ATION RATE. ESTIMATED GFR IS NOT APPLICABLE F OR DIALYSIS PATIENT S. OXYGEN SATURATION, [id number] 04:18:00 Test Item Value Reference Range Comments O2 SATURATION (MEASURED) (BEAKER) (test code = 1455) 68.0 % LACTIC ACID, ARTERIAL, WHOLE [id number] 04:12:00 Test Item Value Reference Range Comments LACTATE BLOOD ARTERIAL (2) (BEAKER) (test code = 1.0 mmol/L 0.5-2.2 2874) Effective 08/02/2015: Units/Reference Range ChangeNew: 0.5-2.2 mmol/L Previous: 5-20 mg/dLCBC W/PLT COUNT & AUTO [id number] 04:00:00 Test Item Value Reference Range Comments WHITE BLOOD CELL COUNT (BEAKER) (test code = 12.0 K/ L 3.5 -10.5 775) RED BLOOD CELL COUNT (BEAKER) (test code = 761) 3.32 M/ L 3.93-5.22 HEMOGLOBIN (BEAKER) (test code = 410) 8.8 GM/DL 11.2-15.7 HEMATOCRIT (BEAKER) (test code = 411) 28.3 % 34.1-44.9 MEAN CORPUSCULAR VOLUME (BEAKER) (test code = 85.2 fL 79 .4-94.8 753) MEAN CORPUSCULAR HEMOGLOBIN (BEAKER) (test code 26.5 pg 25.6-32.2 = 751) MEAN CORPUSCULAR HEMOGLOBIN CONC (BEAKER) (test 31.1 GM/DL 32.2-35.5 code = 752) RED CELL DISTRIBUTION WIDTH (BEAKER) (test code 15.0 % 11.7-14.4 = 412) PLATELET COUNT (BEAKER) (test code = 756) 157 K/CU MM 150-45 0 MEAN PLATELET VOLUME (BEAKER) (test code = 754) 10.7 fL 9.4-12.3 NUCLEATED RED BLOOD CELLS (BEAKER) (test code = 0 /100 WBC 0-0 413) NEUTROPHILS RELATIVE PERCENT (BEAKER) (test code 91 % = 429) LYMPHOCYTES RELATIVE PERCENT (BEAKER) (test code 4 % = 430) MONOCYTES RELATIVE PERCENT (BEAKER) (test code = 4 % 431) EOSINOPHILS RELATIVE PERCENT (BEAKER) (test code 0 % = 432) BASOPHILS RELATIVE PERCENT (BEAKER) (test code = 0 % 437) NEUTROPHILS ABSOLUTE COUNT (BEAKER) (test code = 10.95 K/ L 1.56-6.13 670) LYMPHOCYTES ABSOLUTE COUNT (BEAKER) (test code = 0.52 K/ L 1.18-3.74 414) MONOCYTES ABSOLUTE COUNT (BEAKER) (test code = 0.42 K/ L 0 .24-0.36 415) EOSINOPHILS ABSOLUTE COUNT (BEAKER) (test code = 0.01 K/ L 0.04-0.36 416) BASOPHILS ABSOLUTE COUNT (BEAKER) (test code = 0.05 K/ L 0 .01-0.08 417) IMMATURE GRANULOCYTES-RELATIVE PERCENT (BEAKER) 0 % 0-1 (test code = 2801) BLOOD GAS, [id number] 00:06:00 Test Item Value Reference Range Comments PH ARTERIAL (BEAKER) (test code = 383) 7.26 7.35-7.45 PCO2 ARTERIAL (BEAKER) (test code = 384) 52 mmHg 35-45 PO2 ARTERIAL (BEAKER) (test code = 385) 88 mmHg 80-90 O2 SATURATION ARTERIAL (BEAKER) (test code = 95.7 % 96. 0-97.0 386) HCO3 ARTERIAL (BEAKER) (test code = 388) 23 mmol/L 21-29 BASE EXCESS ARTERIAL (BEAKER) (test code = 387) -4.0 mmol/L -2.0-3.0 PATIENT TEMPERATURE (BEAKER) (test code = 1818) 36.4 C FIO2 (BEAKER) (test code = 1819) 40.0 % [id number] 18:55:00 Test Item Value Reference Range Comments PHOSPHORUS (BEAKER) (test code = 604) 4.8 mg/dL 2.3-4.7 [id number] 18:55:00 Test Item Value Reference Range Comments MAGNESIUM (BEAKER) (test code = 627) 2.3 mg/dL 1.6-2.6 BASIC METABOLIC [id number] 18:55:00 Test Item Value Reference Range Comments SODIUM (BEAKER) (test 136 meq/L 136-145 code = 381) POTASSIUM (BEAKER) (test 4.5 meq/L 3.5-5.1 code = 379) CHLORIDE (BEAKER) (test 108 meq/L 98-107 code = 382) CO2 (BEAKER) (test code = 21 meq/L 22-29 355) BLOOD UREA NITROGEN 39 mg/dL 7-21 (BEAKER) (test code = 354) CREATININE (BEAKER) (test 1.58 mg/dL 0.57-1.25 code = 358) GLUCOSE RANDOM (BEAKER) 172 mg/dL 70-105 (test code = 652) CALCIUM (BEAKER) (test 7.9 mg/dL 8.4-10.2 code = 697) EGFR (BEAKER) (test code 33 mL/min/1.73 sq m EST IMATED GFR IS NOT = 1092) ACCURATE CREA TININE CLEARANCE IN PRE DICTING GLOMERULAR FILTR ATION RATE. ESTIMATED GFR IS NOT APPLICABLE F OR DIALYSIS PATIENT S. LACTIC ACID, ARTERIAL, WHOLE [id number] 18:53:00 Test Item Value Reference Range Comments LACTATE BLOOD ARTERIAL (2) 0.9 mmol/L 0.5-2.2 Speci men slightly hemolyzed (BEAKER) (test code = 2874) Effective 08/02/2015: Units/Reference Range ChangeNew: 0.5-2.2 mmol/L Previous: 5-20 mg/dLRAD, CHEST, 1 VIEW, NON [id number] 18:44:00Reason for exam:- >postop cardiacShould this be performed at the bedside?->YesFINAL [...] atelectasis. Pneumonitis cannot be excluded. Signed: [facility] Verified Date/Time: 05/20/2017 18:44:30 Reading Location: [facility] [id number] Consult Reading Room Electronically signed by: LISA LI M.D. on05/20/2017 06:44 PMCBC W/PLT COUNT & AUTO [id number] 18:38:00 Test Item Value Reference Range Comments WHITE BLOOD CELL COUNT (BEAKER) (test code = 8.7 K/ L 3.5 -10.5 775) RED BLOOD CELL COUNT (BEAKER) (test code = 761) 3.33 M/ L 3.93-5.22 HEMOGLOBIN (BEAKER) (test code = 410) 8.7 GM/DL 11.2-15.7 HEMATOCRIT (BEAKER) (test code = 411) 27.9 % 34.1-44.9 MEAN CORPUSCULAR VOLUME (BEAKER) (test code = 83.8 fL 79 .4-94.8 753) MEAN CORPUSCULAR HEMOGLOBIN (BEAKER) (test code 26.1 pg 25.6-32.2 = 751) MEAN CORPUSCULAR HEMOGLOBIN CONC (BEAKER) (test 31.2 GM/DL 32.2-35.5 code = 752) RED CELL DISTRIBUTION WIDTH (BEAKER) (test code 14.9 % 11.7-14.4 = 412) PLATELET COUNT (BEAKER) (test code = 756) 137 K/CU MM 150-45 0 MEAN PLATELET VOLUME (BEAKER) (test code = 754) 10.2 fL 9.4-12.3 NUCLEATED RED BLOOD CELLS (BEAKER) (test code = 0 /100 WBC 0-0 413) NEUTROPHILS RELATIVE PERCENT (BEAKER) (test code 79 % = 429) LYMPHOCYTES RELATIVE PERCENT (BEAKER) (test code 12 % = 430) MONOCYTES RELATIVE PERCENT (BEAKER) (test code = 7 % 431) EOSINOPHILS RELATIVE PERCENT (BEAKER) (test code 1 % = 432) BASOPHILS RELATIVE PERCENT (BEAKER) (test code = 1 % 437) NEUTROPHILS ABSOLUTE COUNT (BEAKER) (test code = 6.83 K/ L 1.56-6.13 670) LYMPHOCYTES ABSOLUTE COUNT (BEAKER) (test code = 1.06 K/ L 1.18-3.74 414) MONOCYTES ABSOLUTE COUNT (BEAKER) (test code = 0.56 K/ L 0 .24-0.36 415) EOSINOPHILS ABSOLUTE COUNT (BEAKER) (test code = 0.12 K/ L 0.04-0.36 416) BASOPHILS ABSOLUTE COUNT (BEAKER) (test code = 0.04 K/ L 0 .01-0.08 417) IMMATURE GRANULOCYTES-RELATIVE PERCENT (BEAKER) 1 % 0-1 (test code = 2801) OXYGEN SATURATION, [id number] 18:36:00 Test Item Value Reference Range Comments O2 SATURATION (MEASURED) (BEAKER) (test code = 1455) 72.5 % From distal port of IJ central venous catheterSODIUM NA-STAT [id number] 18:30:00 Test Item Value Reference Range Comments SODIUM (BEAKER) (test code = 381) 132 meq/L 135-148 HGB/HCT (H&H) - STAT [id number] 18:30:00 Test Item Value Reference Range Comments HEMOGLOBIN (BEAKER) (test code = 410) 9.4 g/dL 12.0-15.0 HEMATOCRIT (BEAKER) (test code = 411) 28.0 % 36.0-45.0 GLUCOSE-STAT [id number] 18:30:00 Test Item Value Reference Range Comments GLUCOSE RANDOM (BEAKER) (test code = 652) 159 mg/dL 70-110 BLOOD GAS, [id number] 18:30:00 Test Item Value Reference Range Comments PH ARTERIAL (BEAKER) (test code = 383) 7.34 7.35-7.45 PCO2 ARTERIAL (BEAKER) (test code = 384) 43 mmHg 35-45 PO2 ARTERIAL (BEAKER) (test code = 385) 76 mmHg 80-90 O2 SATURATION ARTERIAL (BEAKER) (test code = 94.9 % 96. 0-97.0 386) HCO3 ARTERIAL (BEAKER) (test code = 388) 23 mmol/L 21-29 BASE EXCESS ARTERIAL (BEAKER) (test code = 387) -2.6 mmol/L -2.0-3.0 PATIENT TEMPERATURE (BEAKER) (test code = 1818) 36.4 C FIO2 (BEAKER) (test code = 1819) 60.0 % CALCIUM, [id number] 18:30:00 Test Item Value Reference Range Comments CALCIUM IONIZED (BEAKER) (test code = 698) 0.94 mmol/L 1.12- 1.27 PH, BLOOD (BEAKER) (test code = 1810) 7.34 POTASSIUM-STAT [id number] 18:28:00 Test Item Value Reference Range Comments POTASSIUM (BEAKER) (test code = 379) 4.4 meq/L 3.6-5.5 THROMBOELASTOGRAPH ([id number] 18:11:00 Test Item Value Reference Range Comments TEG ACTIVATED CLOTTING TIME (BEAKER) (test code 6.7 minutes 4.0-7.0 = 1407) TEG FIBRINOGEN ACTIVITY (BEAKER) (test code = 66.6 degrees 61 .0-73.0 1408) TEG PLT. AGGREGATION (BEAKER) (test code = 62.4 MM 55.0- 65.0 1409) TEG FIBRINOLYSIS (BEAKER) (test code = 1410) 0.0 % 0.0 -5.0 TGH ACTIVATED CLOTTING TIME (BEAKER) (test code 6.7 minutes 4.0-7.0 = 1411) TGH FIBRINOGEN ACTIVITY (BEAKER) (test code = 69.0 degrees 61 .0-73.0 1412) TGH PLT. AGGREGATION (BEAKER) (test code = 62.8 MM 55.0- 65.0 1413) TGH FIBRINOLYSIS (BEAKER) (test code = 1414) 0.0 % 0.0 -5.0 [id number] 17:53:00 Test Item Value Reference Range Comments ACTIVATED CLOTTING TIME 103 sec TESTED A T [facility] [address] (BEAKER) (test code = 441) [place] [address] [id number] 17:53:00 Test Item Value Reference Range Comments ACTIVATED CLOTTING TIME 466 sec TESTED A T [facility] [address] (BEAKER) (test code = 441) [place] [address] [id number] 17:53:00 Test Item Value Reference Range Comments ACTIVATED CLOTTING TIME 543 sec TESTED A T [facility] [address] (BEAKER) (test code = 441) [place] [address] [id number] 17:53:00 Test Item Value Reference Range Comments ACTIVATED CLOTTING TIME 549 sec TESTED A T [facility] [address] (BEAKER) (test code = 441) [place] [address] [id number] 17:53:00 Test Item Value Reference Range Comments ACTIVATED CLOTTING TIME 632 sec TESTED A T [facility] [address] (BEAKER) (test code = 441) [place] [address] [id number] 17:53:00 Test Item Value Reference Range Comments ACTIVATED CLOTTING TIME 494 sec TESTED A T [facility] [address] (BEAKER) (test code = 441) [place] [address] [id number] 17:53:00 Test Item Value Reference Range Comments ACTIVATED CLOTTING TIME 587 sec TESTED A T [facility] [address] (BEAKER) (test code = 441) [place] [address] [id number] 17:53:00 Test Item Value Reference Range Comments ACTIVATED CLOTTING TIME 626 sec TESTED A T [facility] [address] (BEAKER) (test code = 441) [place] [address] [id number] 17:52:00 Test Item Value Reference Range Comments ACTIVATED CLOTTING TIME 808 sec TESTED A T [facility] [address] (BEAKER) (test code = 441) [place] [address] [id number] 16:54:00 Test Item Value Reference Range Comments PARTIAL THROMBOPLASTIN TIME (BEAKER) (test code 40.2 seconds 22.5-36.0 = 760) [id number] 16:53:00 Test Item Value Reference Range Comments FIBRINOGEN LEVEL (BEAKER) (test code = 658) 306 mg/dl 225- 434 PROTHROMBIN [id number] 16:50:00 Test Item Value Reference Range Comments PROTIME (BEAKER) (test code = 759) 19.6 seconds 11.7-14.7 INR (BEAKER) (test code = 370) 1.7 <=5.9 RECOMMENDED COUMADIN/WARFARIN INR THERAPY RANGESSTANDARD DOSE: 2.0 - 3.0 Includes: PROPHYLAXIS forvenous thrombosis, systemic embolization; TREATMENT for venous thrombosis and/or pulmonary embolus.HIGH RISK: Target INR is 2.5-3.5 for patients with mechanical heart valves.PLATELET [id number] 16:45:00 Test Item Value Reference Range Comments PLATELET COUNT (BEAKER) (test code = 756) 136 K/CU MM 150-45 0 POTASSIUM-STAT [id number] 16:15:00 Test Item Value Reference Range Comments POTASSIUM (BEAKER) (test code = 379) 4.9 meq/L 3.6-5.5 BLOOD GAS, [id number] 16:15:00 Test Item Value Reference Range Comments PH ARTERIAL (BEAKER) (test code = 383) 7.39 7.35-7.45 PCO2 ARTERIAL (BEAKER) (test code = 384) 42 mmHg 35-45 PO2 ARTERIAL (BEAKER) (test code = 385) 201 mmHg 80-90 O2 SATURATION ARTERIAL (BEAKER) (test code = 99.4 % 96. 0-97.0 386) HCO3 ARTERIAL (BEAKER) (test code = 388) 25 mmol/L 21-29 BASE EXCESS ARTERIAL (BEAKER) (test code = 387) -0.3 mmol/L -2.0-3.0 PATIENT TEMPERATURE (BEAKER) (test code = 1818) 36.3 C FIO2 (BEAKER) (test code = 1819) 100.0 % SODIUM NA-STAT [id number] 16:15:00 Test Item Value Reference Range Comments SODIUM (BEAKER) (test code = 381) 131 meq/L 135-148 GLUCOSE-STAT [id number] 16:15:00 Test Item Value Reference Range Comments GLUCOSE RANDOM (BEAKER) (test code = 652) 198 mg/dL 70-110 HGB/HCT (H&H) - STAT [id number] 16:15:00 Test Item Value Reference Range Comments HEMOGLOBIN (BEAKER) (test code = 410) 7.5 g/dL 12.0-15.0 HEMATOCRIT (BEAKER) (test code = 411) 22.0 % 36.0-45.0 CALCIUM, [id number] 16:14:00 Test Item Value Reference Range Comments CALCIUM IONIZED (BEAKER) (test code = 698) 0.91 mmol/L 1.12- 1.27 PH, BLOOD (BEAKER) (test code = 1810) 7.39 BLOOD GAS, [id number] 15:39:00 Test Item Value Reference Range Comments PH ARTERIAL (BEAKER) (test code = 383) 7.44 7.35-7.45 PCO2 ARTERIAL (BEAKER) (test code = 384) 38 mmHg 35-45 PO2 ARTERIAL (BEAKER) (test code = 385) 298 mmHg 80-90 O2 SATURATION ARTERIAL (BEAKER) (test code = 386) 99.7 % 96.0-97.0 HCO3 ARTERIAL (BEAKER) (test code = 388) 25 mmol/L 21-29 BASE EXCESS ARTERIAL (BEAKER) (test code = 387) 0.7 mmol/L -2.0-3.0 PATIENT TEMPERATURE (BEAKER) (test code = 1818) 36.2 C FIO2 (BEAKER) (test code = 1819) 70.0 % SODIUM NA-STAT [id number] 15:39:00 Test Item Value Reference Range Comments SODIUM (BEAKER) (test code = 381) 131 meq/L 135-148 GLUCOSE-STAT [id number] 15:39:00 Test Item Value Reference Range Comments GLUCOSE RANDOM (BEAKER) (test code = 652) 186 mg/dL 70-110 HGB/HCT (H&H) - STAT [id number] 15:39:00 Test Item Value Reference Range Comments HEMOGLOBIN (BEAKER) (test code = 410) 7.5 g/dL 12.0-15.0 HEMATOCRIT (BEAKER) (test code = 411) 22.0 % 36.0-45.0 POTASSIUM-STAT [id number] 15:38:00 Test Item Value Reference Range Comments POTASSIUM (BEAKER) (test code = 379) 5.3 meq/L 3.6-5.5 BLOOD GAS, [id number] 15:24:00 Test Item Value Reference Range Comments PH ARTERIAL (BEAKER) (test code = 383) 7.47 7.35-7.45 PCO2 ARTERIAL (BEAKER) (test code = 384) 37 mmHg 35-45 PO2 ARTERIAL (BEAKER) (test code = 385) 334 mmHg 80-90 O2 SATURATION ARTERIAL (BEAKER) (test code = 386) 99.8 % 96.0-97.0 HCO3 ARTERIAL (BEAKER) (test code = 388) 26 mmol/L 21-29 BASE EXCESS ARTERIAL (BEAKER) (test code = 387) 2.2 mmol/L -2.0-3.0 PATIENT TEMPERATURE (BEAKER) (test code = 1818) 36.2 C FIO2 (BEAKER) (test code = 1819) 70.0 % SODIUM NA-STAT [id number] 15:24:00 Test Item Value Reference Range Comments SODIUM (BEAKER) (test code = 381) 130 meq/L 135-148 GLUCOSE-STAT [id number] 15:24:00 Test Item Value Reference Range Comments GLUCOSE RANDOM (BEAKER) (test code = 652) 189 mg/dL 70-110 HGB/HCT (H&H) - STAT [id number] 15:24:00 Test Item Value Reference Range Comments HEMOGLOBIN (BEAKER) (test code = 410) 6.7 g/dL 12.0-15.0 HEMATOCRIT (BEAKER) (test code = 411) 20.0 % 36.0-45.0 POTASSIUM-STAT [id number] 15:23:00 Test Item Value Reference Range Comments POTASSIUM (BEAKER) (test code = 379) 5.4 meq/L 3.6-5.5 BLOOD GAS, [id number] 15:07:00 Test Item Value Reference Range Comments PH ARTERIAL (BEAKER) (test code = 383) 7.43 7.35-7.45 PCO2 ARTERIAL (BEAKER) (test code = 384) 41 mmHg 35-45 PO2 ARTERIAL (BEAKER) (test code = 385) 365 mmHg 80-90 O2 SATURATION ARTERIAL (BEAKER) (test code = 386) 99.8 % 96.0-97.0 HCO3 ARTERIAL (BEAKER) (test code = 388) 27 mmol/L 21-29 BASE EXCESS ARTERIAL (BEAKER) (test code = 387) 1.9 mmol/L -2.0-3.0 PATIENT TEMPERATURE (BEAKER) (test code = 1818) 35.8 C FIO2 (BEAKER) (test code = 1819) 70.0 % SODIUM NA-STAT [id number] 15:07:00 Test Item Value Reference Range Comments SODIUM (BEAKER) (test code = 381) 129 meq/L 135-148 GLUCOSE-STAT [id number] 15:07:00 Test Item Value Reference Range Comments GLUCOSE RANDOM (BEAKER) (test code = 652) 172 mg/dL 70-110 HGB/HCT (H&H) - STAT [id number] 15:07:00 Test Item Value Reference Range Comments HEMOGLOBIN (BEAKER) (test code = 410) 7.1 g/dL 12.0-15.0 HEMATOCRIT (BEAKER) (test code = 411) 21.0 % 36.0-45.0 POTASSIUM-STAT [id number] 15:04:00 Test Item Value Reference Range Comments POTASSIUM (BEAKER) (test code = 379) 5.0 meq/L 3.6-5.5 BLOOD GAS, [id number] 14:21:00 Test Item Value Reference Range Comments PH ARTERIAL (BEAKER) (test code = 383) 7.43 7.35-7.45 PCO2 ARTERIAL (BEAKER) (test code = 384) 38 mmHg 35-45 PO2 ARTERIAL (BEAKER) (test code = 385) 360 mmHg 80-90 O2 SATURATION ARTERIAL (BEAKER) (test code = 386) 99.8 % 96.0-97.0 HCO3 ARTERIAL (BEAKER) (test code = 388) 27 mmol/L 21-29 BASE EXCESS ARTERIAL (BEAKER) (test code = 387) 0.3 mmol/L -2.0-3.0 PATIENT TEMPERATURE (BEAKER) (test code = 1818) 28.9 C FIO2 (BEAKER) (test code = 1819) 70.0 % SODIUM NA-STAT [id number] 14:21:00 Test Item Value Reference Range Comments SODIUM (BEAKER) (test code = 381) 133 meq/L 135-148 GLUCOSE-STAT [id number] 14:21:00 Test Item Value Reference Range Comments GLUCOSE RANDOM (BEAKER) (test code = 652) 160 mg/dL 70-110 HGB/HCT (H&H) - STAT [id number] 14:21:00 Test Item Value Reference Range Comments HEMOGLOBIN (BEAKER) (test code = 410) 7.5 g/dL 12.0-15.0 HEMATOCRIT (BEAKER) (test code = 411) 22.0 % 36.0-45.0 POTASSIUM-STAT [id number] 14:20:00 Test Item Value Reference Range Comments POTASSIUM (BEAKER) (test code = 379) 4.7 meq/L 3.6-5.5 BLOOD GAS, [id number] 13:58:00 Test Item Value Reference Range Comments PH ARTERIAL (BEAKER) (test code = 383) 7.43 7.35-7.45 PCO2 ARTERIAL (BEAKER) (test code = 384) 37 mmHg 35-45 PO2 ARTERIAL (BEAKER) (test code = 385) 448 mmHg 80-90 O2 SATURATION ARTERIAL (BEAKER) (test code = 99.9 % 96. 0-97.0 386) HCO3 ARTERIAL (BEAKER) (test code = 388) 26 mmol/L 21-29 BASE EXCESS ARTERIAL (BEAKER) (test code = 387) -0.1 mmol/L -2.0-3.0 PATIENT TEMPERATURE (BEAKER) (test code = 1818) 29.2 C FIO2 (BEAKER) (test code = 1819) 80.0 % SODIUM NA-STAT [id number] 13:58:00 Test Item Value Reference Range Comments SODIUM (BEAKER) (test code = 381) 132 meq/L 135-148 GLUCOSE-STAT [id number] 13:58:00 Test Item Value Reference Range Comments GLUCOSE RANDOM (BEAKER) (test code = 652) 166 mg/dL 70-110 HGB/HCT (H&H) - STAT [id number] 13:58:00 Test Item Value Reference Range Comments HEMOGLOBIN (BEAKER) (test code = 410) 7.5 g/dL 12.0-15.0 HEMATOCRIT (BEAKER) (test code = 411) 22.0 % 36.0-45.0 POTASSIUM-STAT [id number] 13:57:00 Test Item Value Reference Range Comments POTASSIUM (BEAKER) (test code = 379) 4.7 meq/L 3.6-5.5 BLOOD GAS, [id number] 13:35:00 Test Item Value Reference Range Comments PH ARTERIAL (BEAKER) (test code = 383) 7.51 7.35-7.45 PCO2 ARTERIAL (BEAKER) (test code = 384) 33 mmHg 35-45 PO2 ARTERIAL (BEAKER) (test code = 385) 453 mmHg 80-90 O2 SATURATION ARTERIAL (BEAKER) (test code = 386) 99.9 % 96.0-97.0 HCO3 ARTERIAL (BEAKER) (test code = 388) 28 mmol/L 21-29 BASE EXCESS ARTERIAL (BEAKER) (test code = 387) 2.7 mmol/L -2.0-3.0 PATIENT TEMPERATURE (BEAKER) (test code = 1818) 29.2 C FIO2 (BEAKER) (test code = 1819) 80.0 % GLUCOSE-STAT [id number] 13:35:00 Test Item Value Reference Range Comments GLUCOSE RANDOM (BEAKER) (test code = 652) 130 mg/dL 70-110 HGB/HCT (H&H) - STAT [id number] 13:35:00 Test Item Value Reference Range Comments HEMOGLOBIN (BEAKER) (test code = 410) 6.7 g/dL 12.0-15.0 HEMATOCRIT (BEAKER) (test code = 411) 20.0 % 36.0-45.0 SODIUM NA-STAT [id number] 13:35:00 Test Item Value Reference Range Comments SODIUM (BEAKER) (test code = 381) 133 meq/L 135-148 POTASSIUM-STAT [id number] 13:34:00 Test Item Value Reference Range Comments POTASSIUM (BEAKER) (test code = 379) 4.2 meq/L 3.6-5.5 BLOOD GAS, [id number] 13:16:00 Test Item Value Reference Range Comments PH ARTERIAL (BEAKER) (test code = 383) 7.42 7.35-7.45 PCO2 ARTERIAL (BEAKER) (test code = 384) 34 mmHg 35-45 PO2 ARTERIAL (BEAKER) (test code = 385) 375 mmHg 80-90 O2 SATURATION ARTERIAL (BEAKER) (test code = 99.8 % 96. 0-97.0 386) HCO3 ARTERIAL (BEAKER) (test code = 388) 23 mmol/L 21-29 BASE EXCESS ARTERIAL (BEAKER) (test code = 387) -2.5 mmol/L -2.0-3.0 PATIENT TEMPERATURE (BEAKER) (test code = 1818) 31.5 C FIO2 (BEAKER) (test code = 1819) 80.0 % SODIUM NA-STAT [id number] 13:16:00 Test Item Value Reference Range Comments SODIUM (BEAKER) (test code = 381) 133 meq/L 135-148 HGB/HCT (H&H) - STAT [id number] 13:16:00 Test Item Value Reference Range Comments HEMOGLOBIN (BEAKER) (test code = 410) 6.3 g/dL 12.0-15.0 HEMATOCRIT (BEAKER) (test code = 411) 19.0 % 36.0-45.0 CALCIUM, [id number] 13:15:00 Test Item Value Reference Range Comments CALCIUM IONIZED (BEAKER) (test code = 698) 0.98 mmol/L 1.12- 1.27 PH, BLOOD (BEAKER) (test code = 1810) 7.34 BLOOD GAS, [id number] 13:15:00 Test Item Value Reference Range Comments PH VENOUS (BEAKER) (test code = 701) 7.39 7.32-7.42 PCO2 VENOUS (BEAKER) (test code = 755) 38 mmHg 41-51 PO2 VENOUS (BEAKER) (test code = 702) 43 mmHg 25-40 O2 SATURATION VENOUS (BEAKER) (test code = 703) 90.0 % 40.0-70.0 HCO3 VENOUS (BEAKER) (test code = 705) 24 mmol/L 21-29 BASE EXCESS VENOUS (BEAKER) (test code = 704) -2.1 mmol/L -2 .0-3.0 PATIENT TEMPERATURE (BEAKER) (test code = 1818) 31.5 C FIO2 (BEAKER) (test code = 1819) 80.0 % GLUCOSE-STAT [id number] 13:14:00 Test Item Value Reference Range Comments GLUCOSE RANDOM (BEAKER) (test code = 652) 92 mg/dL 70-110 POTASSIUM-STAT [id number] 13:14:00 Test Item Value Reference Range Comments POTASSIUM (BEAKER) (test code = 379) 3.9 meq/L 3.6-5.5 BLOOD GAS, [id number] 10:54:00 Test Item Value Reference Range Comments PH ARTERIAL (BEAKER) (test code = 383) 7.41 7.35-7.45 PCO2 ARTERIAL (BEAKER) (test code = 384) 39 mmHg 35-45 PO2 ARTERIAL (BEAKER) (test code = 385) 254 mmHg 80-90 O2 SATURATION ARTERIAL (BEAKER) (test code = 99.6 % 96. 0-97.0 386) HCO3 ARTERIAL (BEAKER) (test code = 388) 25 mmol/L 21-29 BASE EXCESS ARTERIAL (BEAKER) (test code = 387) -0.3 mmol/L -2.0-3.0 PATIENT TEMPERATURE (BEAKER) (test code = 1818) 35.4 C FIO2 (BEAKER) (test code = 1819) 100.0 % HGB/HCT (H&H) - STAT [id number] 10:54:00 Test Item Value Reference Range Comments HEMOGLOBIN (BEAKER) (test code = 410) 9.3 g/dL 12.0-15.0 HEMATOCRIT (BEAKER) (test code = 411) 27.0 % 36.0-45.0 SODIUM NA-STAT [id number] 10:54:00 Test Item Value Reference Range Comments SODIUM (BEAKER) (test code = 381) 132 meq/L 135-148 GLUCOSE-STAT [id number] 10:52:00 Test Item Value Reference Range Comments GLUCOSE RANDOM (BEAKER) (test code = 652) 94 mg/dL 70-110 POTASSIUM-STAT [id number] 10:52:00 Test Item Value Reference Range Comments POTASSIUM (BEAKER) (test code = 379) 4.0 meq/L 3.6-5.5 HEMOGLOBIN [id number] 09:50:00 Test Item Value Reference Range Comments HEMOGLOBIN A1C (BEAKER) (test code = 368) 10.6 % 4.3-6. 1 PLATELET AGGREGATION: FUNCTION [id number] 08:27:00 Test Item Value Reference Range Comments WEAK ADP RESULT(BEAKER) (test 63 % 60-91 code = 2135) PLATELET FUNCTION SCREEN 60-100% indicates normal INTERP (BEAKER) (test code = platelet function 2173) [id number] (BEAKER) Toshia Post MD (electronic (test code = 2622) signature) PLATELET COUNT AGG (BEAKER) 198 K/CU MM 150-450 (test code = 2656) for patients on clopidogrel in past two weeksPOCT-GLUCOSE [id number] 08:11:00 Test Item Value Reference Range Comments POC-GLUCOSE METER (BEAKER) 116 mg/dL 70-110 TESTE D AT [facility] [address] [facility] (test code = 1538) [facility] [address] [id number] 07:10:00 Test Item Value Reference Range Comments PHOSPHORUS (BEAKER) (test code = 604) 4.5 mg/dL 2.3-4.7 [id number] 07:10:00 Test Item Value Reference Range Comments MAGNESIUM (BEAKER) (test code = 627) 2.1 mg/dL 1.6-2.6 BASIC METABOLIC [id number] 07:10:00 Test Item Value Reference Range Comments SODIUM (BEAKER) (test 135 meq/L 136-145 code = 381) POTASSIUM (BEAKER) (test 4.4 meq/L 3.5-5.1 code = 379) CHLORIDE (BEAKER) (test 106 meq/L 98-107 code = 382) CO2 (BEAKER) (test code = 23 meq/L 22-29 355) BLOOD UREA NITROGEN 40 mg/dL 7-21 (BEAKER) (test code = 354) CREATININE (BEAKER) (test 1.67 mg/dL 0.57-1.25 code = 358) GLUCOSE RANDOM (BEAKER) 107 mg/dL 70-105 (test code = 652) CALCIUM (BEAKER) (test 8.3 mg/dL 8.4-10.2 code = 697) EGFR (BEAKER) (test code 31 mL/min/1.73 sq m EST IMATED GFR IS NOT = 1092) ACCURATE CREA TININE CLEARANCE IN PRE DICTING GLOMERULAR FILTR ATION RATE. ESTIMATED GFR IS NOT APPLICABLE F OR DIALYSIS PATIENT S. B-TYPE NATRIURETIC FACTOR (BNP)2017-05-20 06:56:00 Test Item Value Reference Range Comments B-TYPE NATRIURETIC PEPTIDE (BEAKER) (test code = 552 pg/mL 0-100 700) CBC W/PLT COUNT & AUTO [id number] 06:46:00 Test Item Value Reference Range Comments WHITE BLOOD CELL COUNT (BEAKER) (test code = 6.2 K/ L 3.5 -10.5 775) RED BLOOD CELL COUNT (BEAKER) (test code = 761) 3.56 M/ L 3.93-5.22 HEMOGLOBIN (BEAKER) (test code = 410) 9.1 GM/DL 11.2-15.7 HEMATOCRIT (BEAKER) (test code = 411) 29.5 % 34.1-44.9 MEAN CORPUSCULAR VOLUME (BEAKER) (test code = 82.9 fL 79 .4-94.8 753) MEAN CORPUSCULAR HEMOGLOBIN (BEAKER) (test code 25.6 pg 25.6-32.2 = 751) MEAN CORPUSCULAR HEMOGLOBIN CONC (BEAKER) (test 30.8 GM/DL 32.2-35.5 code = 752) RED CELL DISTRIBUTION WIDTH (BEAKER) (test code 14.4 % 11.7-14.4 = 412) PLATELET COUNT (BEAKER) (test code = 756) 222 K/CU MM 150-45 0 MEAN PLATELET VOLUME (BEAKER) (test code = 754) 10.5 fL 9.4-12.3 NUCLEATED RED BLOOD CELLS (BEAKER) (test code = 0 /100 WBC 0-0 413) NEUTROPHILS RELATIVE PERCENT (BEAKER) (test code 47 % = 429) LYMPHOCYTES RELATIVE PERCENT (BEAKER) (test code 39 % = 430) MONOCYTES RELATIVE PERCENT (BEAKER) (test code = 8 % 431) EOSINOPHILS RELATIVE PERCENT (BEAKER) (test code 5 % = 432) BASOPHILS RELATIVE PERCENT (BEAKER) (test code = 1 % 437) NEUTROPHILS ABSOLUTE COUNT (BEAKER) (test code = 2.90 K/ L 1.56-6.13 670) LYMPHOCYTES ABSOLUTE COUNT (BEAKER) (test code = 2.37 K/ L 1.18-3.74 414) MONOCYTES ABSOLUTE COUNT (BEAKER) (test code = 0.49 K/ L 0 .24-0.36 415) EOSINOPHILS ABSOLUTE COUNT (BEAKER) (test code = 0.30 K/ L 0.04-0.36 416) BASOPHILS ABSOLUTE COUNT (BEAKER) (test code = 0.08 K/ L 0 .01-0.08 417) IMMATURE GRANULOCYTES-RELATIVE PERCENT (BEAKER) 0 % 0-1 (test code = 2801) CALCIUM, [id number] 06:40:00 Test Item Value Reference Range Comments CALCIUM IONIZED (BEAKER) (test code = 698) 1.06 mmol/L 1.12- 1.27 PH, BLOOD (BEAKER) (test code = 1810) 7.39 POCT-GLUCOSE [id number] 23:22:00 Test Item Value Reference Range Comments POC-GLUCOSE METER (BEAKER) 165 mg/dL 70-110 TESTE D AT [facility] [address] (test code = 1538) [facility] 77 [address] URINE PROTEIN ELECTROPHORESIS, [id number] 18:02:00 Test Item Value Reference Range Comments PROTEIN, URINE (BEAKER) (test 305 mg/dL 0-14 code = 1569) ALBUMIN URINE ELP (BEAKER) 70.9 % (test code = 1018) GAMMA GLOBULIN URINE (BEAKER) 29.1 % (test code = 1015) UPEP, ID-438 (BEAKER) (test No monoclonal bands detected. code = 2604) [id number] (BEAKER) Rocio Galindo MD (test code = 2605) (electronic signature) PROTEIN ELECTROPHORESIS, [id number] 17:57:00 Test Item Value Reference Range Comments ALBUMIN FRACTION (BEAKER) 2.5 g/dL 3.5-5.5 (test code = 405) ALPHA 1 FRACTION (BEAKER) 0.3 g/dL 0.2-0.4 (test code = 389) ALPHA 2 FRACTION (BEAKER) 0.9 g/dL 0.5-0.9 (test code = 390) BETA FRACTION (BEAKER) (test 0.8 g/dL 0.6-1.1 code = 392) GAMMA GLOBULIN FRACTION 1.0 g/dL 0.7-1.7 (BEAKER) (test code = 391) INTERPRETATION-119 (BEAKER) Decreased albumin with (test code = 2615) concurrent relative increases in all globulin fractions. No monoclonal bands detected. [id number] (BEAKER) Rocio Galindo MD (test code = 2616) (electronic signature) PROTEIN TOTAL SERUM, SPEP 5.5 gm/dL 6.0-8.3 (BEAKER) (test code = 2660) POCT-GLUCOSE [id number] 17:15:00 Test Item Value Reference Range Comments POC-GLUCOSE METER (BEAKER) 209 mg/dL 70-110 TESTE D AT [facility] [address] [facility] (test code = 1538) [facility] 77 [address]30 BLOOD GAS, [id number] 15:54:00 Test Item Value Reference Range Comments PH ARTERIAL (BEAKER) (test code = 383) 7.45 7.35-7.45 PCO2 ARTERIAL (BEAKER) (test code = 384) 38 mmHg 35-45 PO2 ARTERIAL (BEAKER) (test code = 385) 69 mmHg 80-90 O2 SATURATION ARTERIAL (BEAKER) (test code = 386) 94.5 % 96.0-97.0 HCO3 ARTERIAL (BEAKER) (test code = 388) 25 mmol/L 21-29 BASE EXCESS ARTERIAL (BEAKER) (test code = 387) 1.3 mmol/L -2.0-3.0 PATIENT TEMPERATURE (BEAKER) (test code = 1818) 37.0 C FIO2 (BEAKER) (test code = 1819) 36.0 % RAD, CHEST, 1 VIEW, NON [id number] 14:07:00Reason for exam:->SOB, hypoxemiaShould this be performed at the bedside?->YesFINAL REPORT Chest one view AP 05/19/2017 2:06 PM CLINICAL INDICATION: SOB, hyp oxemia COMPARISON: 05/15/2017 IMPRESSION: There are right greater than left small volume pleural effusions. Adjacent dependent pulmonary opacities may reflect atelectasis or pneumonia. The cardiac silhouette is enlarged, but stable. There is central pulmonary vasculature congestion with mild interstitial edema. Signed: Eder Cespedes Verified Date/Time: 05/19/2017 14:07:07 Reading Location:[facility] [id number] Consult Reading Room POCT-GLUCOSE [id number] 11:26:00 Test Item Value Reference Range Comments POC-GLUCOSE METER (BEAKER) 262 mg/dL 70-110 TESTE D AT [address] (test code = 1538) [place] [address] POCT-GLUCOSE [id number] 07:37:00 Test Item Value Reference Range Comments POC-GLUCOSE METER (BEAKER) 170 mg/dL 70-110 TESTE D AT [address] (test code = 1538) [place] [address] CALCIUM, [id number] 06:06:00 Test Item Value Reference Range Comments CALCIUM IONIZED (BEAKER) (test code = 698) 1.05 mmol/L 1.12- 1.27 PH, BLOOD (BEAKER) (test code = 1810) 7.41 [id number] 05:38:00 Test Item Value Reference Range Comments PHOSPHORUS (BEAKER) (test code = 604) 3.9 mg/dL 2.3-4.7 [id number] 05:38:00 Test Item Value Reference Range Comments MAGNESIUM (BEAKER) (test code = 627) 2.2 mg/dL 1.6-2.6 BASIC METABOLIC [id number] 05:38:00 Test Item Value Reference Range Comments SODIUM (BEAKER) (test 135 meq/L 136-145 code = 381) POTASSIUM (BEAKER) (test 4.5 meq/L 3.5-5.1 code = 379) CHLORIDE (BEAKER) (test 105 meq/L 98-107 code = 382) CO2 (BEAKER) (test code = 24 meq/L 22-29 355) BLOOD UREA NITROGEN 41 mg/dL 7-21 (BEAKER) (test code = 354) CREATININE (BEAKER) (test 1.74 mg/dL 0.57-1.25 code = 358) GLUCOSE RANDOM (BEAKER) 174 mg/dL 70-105 (test code = 652) CALCIUM (BEAKER) (test 8.4 mg/dL 8.4-10.2 code = 697) EGFR (BEAKER) (test code 30 mL/min/1.73 sq m EST IMATED GFR IS NOT = 1092) ACCURATE CREA TININE CLEARANCE IN PRE DICTING GLOMERULAR FILTR ATION RATE. ESTIMATED GFR IS NOT APPLICABLE F OR DIALYSIS PATIENT S. CBC W/PLT COUNT & AUTO [id number] 05:09:00 Test Item Value Reference Range Comments WHITE BLOOD CELL COUNT (BEAKER) (test code = 8.5 K/ L 3.5 -10.5 775) RED BLOOD CELL COUNT (BEAKER) (test code = 761) 3.54 M/ L 3.93-5.22 HEMOGLOBIN (BEAKER) (test code = 410) 9.1 GM/DL 11.2-15.7 HEMATOCRIT (BEAKER) (test code = 411) 29.1 % 34.1-44.9 MEAN CORPUSCULAR VOLUME (BEAKER) (test code = 82.2 fL 79 .4-94.8 753) MEAN CORPUSCULAR HEMOGLOBIN (BEAKER) (test code 25.7 pg 25.6-32.2 = 751) MEAN CORPUSCULAR HEMOGLOBIN CONC (BEAKER) (test 31.3 GM/DL 32.2-35.5 code = 752) RED CELL DISTRIBUTION WIDTH (BEAKER) (test code 14.5 % 11.7-14.4 = 412) PLATELET COUNT (BEAKER) (test code = 756) 201 K/CU MM 150-45 0 MEAN PLATELET VOLUME (BEAKER) (test code = 754) 10.7 fL 9.4-12.3 NUCLEATED RED BLOOD CELLS (BEAKER) (test code = 0 /100 WBC 0-0 413) NEUTROPHILS RELATIVE PERCENT (BEAKER) (test code 56 % = 429) LYMPHOCYTES RELATIVE PERCENT (BEAKER) (test code 32 % = 430) MONOCYTES RELATIVE PERCENT (BEAKER) (test code = 7 % 431) EOSINOPHILS RELATIVE PERCENT (BEAKER) (test code 4 % = 432) BASOPHILS RELATIVE PERCENT (BEAKER) (test code = 1 % 437) NEUTROPHILS ABSOLUTE COUNT (BEAKER) (test code = 4.80 K/ L 1.56-6.13 670) LYMPHOCYTES ABSOLUTE COUNT (BEAKER) (test code = 2.73 K/ L 1.18-3.74 414) MONOCYTES ABSOLUTE COUNT (BEAKER) (test code = 0.62 K/ L 0 .24-0.36 415) EOSINOPHILS ABSOLUTE COUNT (BEAKER) (test code = 0.30 K/ L 0.04-0.36 416) BASOPHILS ABSOLUTE COUNT (BEAKER) (test code = 0.06 K/ L 0 .01-0.08 417) IMMATURE GRANULOCYTES-RELATIVE PERCENT (BEAKER) 0 % 0-1 (test code = 2801) POCT-GLUCOSE [id number] 22:08:00 Test Item Value Reference Range Comments POC-GLUCOSE METER (BEAKER) 263 mg/dL 70-110 TESTE D AT [address] (test code = 1538) [place] [address] POCT-GLUCOSE [id number] 17:20:00 Test Item Value Reference Range Comments POC-GLUCOSE METER (BEAKER) 233 mg/dL 70-110 TESTE D AT [address] (test code = 1538) [place] [address] POCT-GLUCOSE [id number] 08:28:00 Test Item Value Reference Range Comments POC-GLUCOSE METER (BEAKER) 154 mg/dL 70-110 TESTE D AT [address] (test code = 1538) [place] [address] BASIC METABOLIC [id number] 06:41:00 Test Item Value Reference Range Comments SODIUM (BEAKER) (test 135 meq/L 136-145 code = 381) POTASSIUM (BEAKER) (test 4.6 meq/L 3.5-5.1 code = 379) CHLORIDE (BEAKER) (test 104 meq/L 98-107 code = 382) CO2 (BEAKER) (test code = 23 meq/L 22-29 355) BLOOD UREA NITROGEN 39 mg/dL 7-21 (BEAKER) (test code = 354) CREATININE (BEAKER) (test 1.77 mg/dL 0.57-1.25 code = 358) GLUCOSE RANDOM (BEAKER) 173 mg/dL 70-105 (test code = 652) CALCIUM (BEAKER) (test 8.6 mg/dL 8.4-10.2 code = 697) EGFR (BEAKER) (test code 29 mL/min/1.73 sq m EST IMATED GFR IS NOT = 1092) ACCURATE CREA TININE CLEARANCE IN PRE DICTING GLOMERULAR FILTR ATION RATE. ESTIMATED GFR IS NOT APPLICABLE F OR DIALYSIS PATIENT S. [id number] 06:35:00 Test Item Value Reference Range Comments PHOSPHORUS (BEAKER) (test code = 604) 4.1 mg/dL 2.3-4.7 [id number] 06:35:00 Test Item Value Reference Range Comments MAGNESIUM (BEAKER) (test code = 627) 2.1 mg/dL 1.6-2.6 CALCIUM, [id number] 06:22:00 Test Item Value Reference Range Comments CALCIUM IONIZED (BEAKER) (test code = 698) 1.10 mmol/L 1.12- 1.27 PH, BLOOD (BEAKER) (test code = 1810) 7.38 CBC W/PLT COUNT & AUTO [id number] 06:04:00 Test Item Value Reference Range Comments WHITE BLOOD CELL COUNT (BEAKER) (test code = 9.3 K/ L 3.5 -10.5 775) RED BLOOD CELL COUNT (BEAKER) (test code = 761) 4.15 M/ L 3.93-5.22 HEMOGLOBIN (BEAKER) (test code = 410) 10.6 GM/DL 11.2-15.7 HEMATOCRIT (BEAKER) (test code = 411) 34.2 % 34.1-44.9 MEAN CORPUSCULAR VOLUME (BEAKER) (test code = 82.4 fL 79 .4-94.8 753) MEAN CORPUSCULAR HEMOGLOBIN (BEAKER) (test code 25.5 pg 25.6-32.2 = 751) MEAN CORPUSCULAR HEMOGLOBIN CONC (BEAKER) (test 31.0 GM/DL 32.2-35.5 code = 752) RED CELL DISTRIBUTION WIDTH (BEAKER) (test code 14.6 % 11.7-14.4 = 412) PLATELET COUNT (BEAKER) (test code = 756) 183 K/CU MM 150-45 0 MEAN PLATELET VOLUME (BEAKER) (test code = 754) 11.0 fL 9.4-12.3 NUCLEATED RED BLOOD CELLS (BEAKER) (test code = 0 /100 WBC 0-0 413) NEUTROPHILS RELATIVE PERCENT (BEAKER) (test code 66 % = 429) LYMPHOCYTES RELATIVE PERCENT (BEAKER) (test code 24 % = 430) MONOCYTES RELATIVE PERCENT (BEAKER) (test code = 7 % 431) EOSINOPHILS RELATIVE PERCENT (BEAKER) (test code 3 % = 432) BASOPHILS RELATIVE PERCENT (BEAKER) (test code = 1 % 437) NEUTROPHILS ABSOLUTE COUNT (BEAKER) (test code = 6.15 K/ L 1.56-6.13 670) LYMPHOCYTES ABSOLUTE COUNT (BEAKER) (test code = 2.20 K/ L 1.18-3.74 414) MONOCYTES ABSOLUTE COUNT (BEAKER) (test code = 0.62 K/ L 0 .24-0.36 415) EOSINOPHILS ABSOLUTE COUNT (BEAKER) (test code = 0.24 K/ L 0.04-0.36 416) BASOPHILS ABSOLUTE COUNT (BEAKER) (test code = 0.06 K/ L 0 .01-0.08 417) IMMATURE GRANULOCYTES-RELATIVE PERCENT (BEAKER) 0 % 0-1 (test code = 2801) POCT-GLUCOSE [id number] 03:44:00 Test Item Value Reference Range Comments POC-GLUCOSE METER (BEAKER) 220 mg/dL 70-110 TESTE D AT [address] (test code = 1538) [place] [address] POCT-GLUCOSE [id number] 18:27:00 Test Item Value Reference Range Comments POC-GLUCOSE METER (BEAKER) 256 mg/dL 70-110 TESTE D AT [address] (test code = 1538) [place] [address] POCT-GLUCOSE [id number] 15:45:00 Test Item Value Reference Range Comments POC-GLUCOSE METER (BEAKER) 278 mg/dL 70-110 TESTE D AT [address] (test code = 1538) [place] [address] POCT-GLUCOSE [id number] 13:22:00 Test Item Value Reference Range Comments POC-GLUCOSE METER (BEAKER) 278 mg/dL 70-110 TESTE D AT [facility] [address] [facility] (test code = 1538) [facility] [address] PLATELET AGGREGATION: FUNCTION [id number] 13:18:00 Test Item Value Reference Range Comments WEAK ADP RESULT(BEAKER) (test 66 % 60-91 code = 2136) PLATELET FUNCTION SCREEN 60-100% indicates normal INTERP (BEAKER) (test code = platelet function 2173) [id number] (BEAKER) Rigoberto Duenas MD (electronic (test code = 2622) signature) PLATELET COUNT AGG (BEAKER) 204 K/CU MM 150-450 (test code = 2656) POCT-GLUCOSE [id number] 08:27:00 Test Item Value Reference Range Comments POC-GLUCOSE METER (BEAKER) 189 mg/dL 70-110 TESTE D AT [facility] [address] [facility] (test code = 1538) [place] [address] CALCIUM, [id number] 06:12:00 Test Item Value Reference Range Comments CALCIUM IONIZED (BEAKER) (test code = 698) 1.07 mmol/L 1.12- 1.27 PH, BLOOD (BEAKER) (test code = 1810) 7.36 [id number] 05:43:00 Test Item Value Reference Range Comments PHOSPHORUS (BEAKER) (test code = 604) 3.6 mg/dL 2.3-4.7 [id number] 05:43:00 Test Item Value Reference Range Comments MAGNESIUM (BEAKER) (test code = 627) 2.1 mg/dL 1.6-2.6 BASIC METABOLIC [id number] 05:43:00 Test Item Value Reference Range Comments SODIUM (BEAKER) (test 137 meq/L 136-145 code = 381) POTASSIUM (BEAKER) (test 4.7 meq/L 3.5-5.1 code = 379) CHLORIDE (BEAKER) (test 107 meq/L 98-107 code = 382) CO2 (BEAKER) (test code = 24 meq/L 22-29 355) BLOOD UREA NITROGEN 38 mg/dL 7-21 (BEAKER) (test code = 354) CREATININE (BEAKER) (test 1.72 mg/dL 0.57-1.25 code = 358) GLUCOSE RANDOM (BEAKER) 198 mg/dL 70-105 (test code = 652) CALCIUM (BEAKER) (test 8.3 mg/dL 8.4-10.2 code = 697) EGFR (BEAKER) (test code 30 mL/min/1.73 sq m EST IMATED GFR IS NOT = 1092) ACCURATE CREA TININE CLEARANCE IN PRE DICTING GLOMERULAR FILTR ATION RATE. ESTIMATED GFR IS NOT APPLICABLE F OR DIALYSIS PATIENT S. CBC W/PLT COUNT & AUTO [id number] 05:05:00 Test Item Value Reference Range Comments WHITE BLOOD CELL COUNT (BEAKER) (test code = 8.6 K/ L 3.5 -10.5 775) RED BLOOD CELL COUNT (BEAKER) (test code = 761) 4.20 M/ L 3.93-5.22 HEMOGLOBIN (BEAKER) (test code = 410) 10.7 GM/DL 11.2-15.7 HEMATOCRIT (BEAKER) (test code = 411) 34.7 % 34.1-44.9 MEAN CORPUSCULAR VOLUME (BEAKER) (test code = 82.6 fL 79 .4-94.8 753) MEAN CORPUSCULAR HEMOGLOBIN (BEAKER) (test code 25.5 pg 25.6-32.2 = 751) MEAN CORPUSCULAR HEMOGLOBIN CONC (BEAKER) (test 30.8 GM/DL 32.2-35.5 code = 752) RED CELL DISTRIBUTION WIDTH (BEAKER) (test code 14.7 % 11.7-14.4 = 412) PLATELET COUNT (BEAKER) (test code = 756) 198 K/CU MM 150-45 0 MEAN PLATELET VOLUME (BEAKER) (test code = 754) 11.1 fL 9.4-12.3 NUCLEATED RED BLOOD CELLS (BEAKER) (test code = 0 /100 WBC 0-0 413) NEUTROPHILS RELATIVE PERCENT (BEAKER) (test code 63 % = 429) LYMPHOCYTES RELATIVE PERCENT (BEAKER) (test code 28 % = 430) MONOCYTES RELATIVE PERCENT (BEAKER) (test code = 6 % 431) EOSINOPHILS RELATIVE PERCENT (BEAKER) (test code 3 % = 432) BASOPHILS RELATIVE PERCENT (BEAKER) (test code = 1 % 437) NEUTROPHILS ABSOLUTE COUNT (BEAKER) (test code = 5.41 K/ L 1.56-6.13 670) LYMPHOCYTES ABSOLUTE COUNT (BEAKER) (test code = 2.37 K/ L 1.18-3.74 414) MONOCYTES ABSOLUTE COUNT (BEAKER) (test code = 0.50 K/ L 0 .24-0.36 415) EOSINOPHILS ABSOLUTE COUNT (BEAKER) (test code = 0.27 K/ L 0.04-0.36 416) BASOPHILS ABSOLUTE COUNT (BEAKER) (test code = 0.06 K/ L 0 .01-0.08 417) IMMATURE GRANULOCYTES-RELATIVE PERCENT (BEAKER) 0 % 0-1 (test code = 2801) POCT-GLUCOSE [id number] 21:32:00 Test Item Value Reference Range Comments POC-GLUCOSE METER (BEAKER) 176 mg/dL 70-110 TESTE D AT [address] (test code = 1538) [place] [address] POCT-GLUCOSE [id number] 20:27:00 Test Item Value Reference Range Comments POC-GLUCOSE METER (BEAKER) 161 mg/dL 70-110 TESTE D AT [address] (test code = 1538) [place] [address] POCT-GLUCOSE [id number] 18:23:00 Test Item Value Reference Range Comments POC-GLUCOSE METER (BEAKER) 185 mg/dL 70-110 TESTE D AT [address] (test code = 1538) [place] [address] POCT-GLUCOSE [id number] 13:26:00 Test Item Value Reference Range Comments POC-GLUCOSE METER (BEAKER) 282 mg/dL 70-110 TESTE D AT [address] (test code = 1538) [place] [address] URINE [id number] 10:12:00 Test Item Value Reference Range Comments CULTURE (BEAKER) (test code = >100,000 col/mL skin todd 1095) POCT-GLUCOSE [id number] 09:01:00 Test Item Value Reference Range Comments POC-GLUCOSE METER (BEAKER) 268 mg/dL 70-110 TESTE D AT [address] (test code = 1538) [place] [address] CALCIUM, [id number] 05:39:00 Test Item Value Reference Range Comments CALCIUM IONIZED (BEAKER) (test code = 698) 0.84 mmol/L 1.12- 1.27 PH, BLOOD (BEAKER) (test code = 1810) 7.35 BASIC METABOLIC [id number] 05:07:00 Test Item Value Reference Range Comments SODIUM (BEAKER) (test 135 meq/L 136-145 code = 381) POTASSIUM (BEAKER) (test 4.9 meq/L 3.5-5.1 code = 379) CHLORIDE (BEAKER) (test 106 meq/L 98-107 code = 382) CO2 (BEAKER) (test code = 22 meq/L 22-29 355) BLOOD UREA NITROGEN 43 mg/dL 7-21 (BEAKER) (test code = 354) CREATININE (BEAKER) (test 2.00 mg/dL 0.57-1.25 code = 358) GLUCOSE RANDOM (BEAKER) 161 mg/dL 70-105 (test code = 652) CALCIUM (BEAKER) (test 8.2 mg/dL 8.4-10.2 code = 697) EGFR (BEAKER) (test code 25 mL/min/1.73 sq m EST IMATED GFR IS NOT = 1092) ACCURATE CREA TININE CLEARANCE IN PRE DICTING GLOMERULAR FILTR ATION RATE. ESTIMATED GFR IS NOT APPLICABLE F OR DIALYSIS PATIENT S. [id number] 05:06:00 Test Item Value Reference Range Comments PHOSPHORUS (BEAKER) (test code = 604) 3.2 mg/dL 2.3-4.7 [id number] 05:06:00 Test Item Value Reference Range Comments MAGNESIUM (BEAKER) (test code = 627) 2.3 mg/dL 1.6-2.6 CBC W/PLT COUNT & AUTO [id number] 04:42:00 Test Item Value Reference Range Comments WHITE BLOOD CELL COUNT (BEAKER) (test code = 9.5 K/ L 3.5 -10.5 775) RED BLOOD CELL COUNT (BEAKER) (test code = 761) 4.17 M/ L 3.93-5.22 HEMOGLOBIN (BEAKER) (test code = 410) 10.5 GM/DL 11.2-15.7 HEMATOCRIT (BEAKER) (test code = 411) 34.2 % 34.1-44.9 MEAN CORPUSCULAR VOLUME (BEAKER) (test code = 82.0 fL 79 .4-94.8 753) MEAN CORPUSCULAR HEMOGLOBIN (BEAKER) (test code 25.2 pg 25.6-32.2 = 751) MEAN CORPUSCULAR HEMOGLOBIN CONC (BEAKER) (test 30.7 GM/DL 32.2-35.5 code = 752) RED CELL DISTRIBUTION WIDTH (BEAKER) (test code 14.6 % 11.7-14.4 = 412) PLATELET COUNT (BEAKER) (test code = 756) 177 K/CU MM 150-45 0 MEAN PLATELET VOLUME (BEAKER) (test code = 754) 11.1 fL 9.4-12.3 NUCLEATED RED BLOOD CELLS (BEAKER) (test code = 0 /100 WBC 0-0 413) NEUTROPHILS RELATIVE PERCENT (BEAKER) (test code 55 % = 429) LYMPHOCYTES RELATIVE PERCENT (BEAKER) (test code 36 % = 430) MONOCYTES RELATIVE PERCENT (BEAKER) (test code = 6 % 431) EOSINOPHILS RELATIVE PERCENT (BEAKER) (test code 2 % = 432) BASOPHILS RELATIVE PERCENT (BEAKER) (test code = 1 % 437) NEUTROPHILS ABSOLUTE COUNT (BEAKER) (test code = 5.20 K/ L 1.56-6.13 670) LYMPHOCYTES ABSOLUTE COUNT (BEAKER) (test code = 3.37 K/ L 1.18-3.74 414) MONOCYTES ABSOLUTE COUNT (BEAKER) (test code = 0.59 K/ L 0 .24-0.36 415) EOSINOPHILS ABSOLUTE COUNT (BEAKER) (test code = 0.21 K/ L 0.04-0.36 416) BASOPHILS ABSOLUTE COUNT (BEAKER) (test code = 0.07 K/ L 0 .01-0.08 417) IMMATURE GRANULOCYTES-RELATIVE PERCENT (BEAKER) 0 % 0-1 (test code = 2801) RHEUMATOID FACTOR AB, REFLEX TO [id number] 01:52:00 Test Item Value Reference Range Comments RHEUMATOID FACTOR (BEAKER) (test code = 573) Negative POCT-GLUCOSE [id number] 21:57:00 Test Item Value Reference Range Comments POC-GLUCOSE METER (BEAKER) 105 mg/dL 70-110 TESTE D AT [facility] [address] [facility] (test code = 1538) [facility] 77 [address]30 POCT-GLUCOSE [id number] 18:11:00 Test Item Value Reference Range Comments POC-GLUCOSE METER (ROBERT) 312 mg/dL 70-110 Notif amrita VANEGAS MD/TESTED AT [facility] (test code = 1538) [address] [facility] [address] PET, CARDIAC PERFUSION MULTIPLE STUDIES, REST AND [id number] 16:28:00 Reason for exam:->pvcs, known cadFINAL REPORT PROCEDURE: Rest/Stress MYOCARDIAL PERFUSION PET with regadenoson\XA9\ CPT CODE: 71430 INDICATION: Defined extent and severity of known CAD HISTORY: Cardiac risk factors: Diabetes, hypertension, hyperlipidemia, tobacco. Other cardiovascular history: Known CAD, CHF. Recent cardiac symptoms: Dyspnea. Current cardiovascular-related medications: Aspirin, atorvastatin, nifedipine. PROTOCOL: Limited low-dose CT imaging was performed for at tenuation correction. 40.1 mCi of Rb-82 chloride was [...] is 23%. LVEF at stress is 36%. Tester [employer] CT images revealed a right pleural effusion [...] pleural and pericardial effusions. 7. No previous [facility] study for comparison. NONINVASIVE RISK STRATIFICATION: The above findings are considered high risk (>3% annual mortality rate) based on the following criteria: - Severe resting left ventricular dysfunction (LVEF 35%)- Stress-induced large perfusion defect (particularly if anterior)(JACC. 2012;59(9):857-81.) Signed: Last Lopez Verified Date/Time: 05/15/2017 16:28:12 Reading Location: [address] ReadingRoom RAD, CHEST, 1 VIEW, NON [id number] 15:56:00Reason for exam:->SOBShould this be performed at the bedside?->YesFINAL REPORT Comparison: 05/14/2017 TECHNIQUE: Single view of the chest FINDINGS: There is a small right pleural effusion with nonspecific airspace disease. This is unchanged. Left lung is grossly clear. Cardiac silhouette is enlarged. IMPRESSION: 1. No acute cardiopulmonary disease. Signed: Sixto Monk MDReport Verified Date/Time: 05/15/2017 15:56:39 [facility] POCT-GLUCOSE [id number] 12:54:00 Test Item Value Reference Range Comments POC-GLUCOSE METER (BEAKER) 308 mg/dL 70-110 Notif ied GUILHERME PIERRE/TESTED AT [facility] (test code = 1538) [address] [facility] [address] U/S, RENAL WITH [id number] 11:04:00Reason for exam:->tracy, htnShould this be performed [...] limits. There was no evidence of a del ayed systolic peak. The peak systolic velocity of [...] the resistive indices throughout. Signed: Anahi Hobbs Verified Date/Time: 05/15/2017 11:04:01 Reading Location: [facility] [id number] Ultrasound Reading Room ANA TITER AND [id number] 10:57:00 Test Item Value Reference Range Comments ROGER TITER (BEAKER) (test code = 1541) :160 ROGER PATTERN (BEAKER) (test code = 1781) Speckled ANTI-NUCLEAR ANTIBODY (ROGER)2017-05-15 10:56:00 Test Item Value Reference Range Comments ANTI-NUCLEAR ANTIBODY (ROGER) (BEAKER) (test code = Positive Negative 418) CALCIUM, [id number] 06:00:00 Test Item Value Reference Range Comments CALCIUM IONIZED (BEAKER) (test code = 698) 1.07 mmol/L 1.12- 1.27 PH, BLOOD (BEAKER) (test code = 1810) 7.28 HEPATITIS PANEL, [id number] 05:01:00 Test Item Value Reference Range Comments HEPATITIS A IGM ANTIBODY (BEAKER) (test code = Nonreactive N onreactive 498) HEPATITIS B CORE IGM ANTIBODY (BEAKER) (test Nonreactive Non reactive code = 645) HEPATITIS C ANTIBODY (BEAKER) (test code = 367) Nonreactive Nonreactive HEPATITIS B SURFACE ANTIGEN (2) (BEAKER) (test Nonreactive N onreactive code = 2585) BASIC METABOLIC [id number] 04:48:00 Test Item Value Reference Range Comments SODIUM (BEAKER) (test 135 meq/L 136-145 code = 381) POTASSIUM (BEAKER) (test 5.2 meq/L 3.5-5.1 code = 379) CHLORIDE (BEAKER) (test 104 meq/L 98-107 code = 382) CO2 (BEAKER) (test code = 22 meq/L 22-29 355) BLOOD UREA NITROGEN 46 mg/dL 7-21 (BEAKER) (test code = 354) CREATININE (BEAKER) (test 2.64 mg/dL 0.57-1.25 code = 358) GLUCOSE RANDOM (BEAKER) 176 mg/dL 70-105 (test code = 652) CALCIUM (BEAKER) (test 8.2 mg/dL 8.4-10.2 code = 697) EGFR (BEAKER) (test code 18 mL/min/1.73 sq m EST IMATED GFR IS NOT = 1092) ACCURATE CREA TININE CLEARANCE IN PRE DICTING GLOMERULAR FILTR ATION RATE. ESTIMATED GFR IS NOT APPLICABLE F OR DIALYSIS PATIENT S. URIC [id number] 04:41:00 Test Item Value Reference Range Comments URIC ACID (BEAKER) (test code = 773) 10.3 mg/dL 2.6-7.2 [id number] 04:41:00 Test Item Value Reference Range Comments MAGNESIUM (BEAKER) (test code = 627) 2.0 mg/dL 1.6-2.6 [id number] 04:41:00 Test Item Value Reference Range Comments PHOSPHORUS (BEAKER) (test code = 604) 4.2 mg/dL 2.3-4.7 COMPLEMENT COMPONENT [id number] 04:38:00 Test Item Value Reference Range Comments C4 COMPLEMENT (BEAKER) (test code = 394) 28 mg/dL 15-57 COMPLEMENT COMPONENT [id number] 04:38:00 Test Item Value Reference Range Comments C3 COMPLEMENT (BEAKER) (test code = 393) 103 mg/dL 82-193 CBC W/PLT COUNT & AUTO [id number] 04:22:00 Test Item Value Reference Range Comments WHITE BLOOD CELL COUNT (BEAKER) (test code = 11.0 K/ L 3.5 -10.5 775) RED BLOOD CELL COUNT (BEAKER) (test code = 761) 4.25 M/ L 3.93-5.22 HEMOGLOBIN (BEAKER) (test code = 410) 10.6 GM/DL 11.2-15.7 HEMATOCRIT (BEAKER) (test code = 411) 35.3 % 34.1-44.9 MEAN CORPUSCULAR VOLUME (BEAKER) (test code = 83.1 fL 79 .4-94.8 753) MEAN CORPUSCULAR HEMOGLOBIN (BEAKER) (test code 24.9 pg 25.6-32.2 = 751) MEAN CORPUSCULAR HEMOGLOBIN CONC (BEAKER) (test 30.0 GM/DL 32.2-35.5 code = 752) RED CELL DISTRIBUTION WIDTH (BEAKER) (test code 14.5 % 11.7-14.4 = 412) PLATELET COUNT (BEAKER) (test code = 756) 185 K/CU MM 150-45 0 MEAN PLATELET VOLUME (BEAKER) (test code = 754) 10.9 fL 9.4-12.3 NUCLEATED RED BLOOD CELLS (BEAKER) (test code = 0 /100 WBC 0-0 413) NEUTROPHILS RELATIVE PERCENT (BEAKER) (test code 61 % = 429) LYMPHOCYTES RELATIVE PERCENT (BEAKER) (test code 31 % = 430) MONOCYTES RELATIVE PERCENT (BEAKER) (test code = 5 % 431) EOSINOPHILS RELATIVE PERCENT (BEAKER) (test code 2 % = 432) BASOPHILS RELATIVE PERCENT (BEAKER) (test code = 1 % 437) NEUTROPHILS ABSOLUTE COUNT (BEAKER) (test code = 6.72 K/ L 1.56-6.13 670) LYMPHOCYTES ABSOLUTE COUNT (BEAKER) (test code = 3.35 K/ L 1.18-3.74 414) MONOCYTES ABSOLUTE COUNT (BEAKER) (test code = 0.59 K/ L 0 .24-0.36 415) EOSINOPHILS ABSOLUTE COUNT (BEAKER) (test code = 0.21 K/ L 0.04-0.36 416) BASOPHILS ABSOLUTE COUNT (BEAKER) (test code = 0.06 K/ L 0 .01-0.08 417) IMMATURE GRANULOCYTES-RELATIVE PERCENT (BEAKER) 0 % 0-1 (test code = 2801) POCT-GLUCOSE [id number] 21:46:00 Test Item Value Reference Range Comments POC-GLUCOSE METER (BEAKER) 173 mg/dL 70-110 TESTE D AT [place] [id number] [facility] (test code = 1538) [place] [address] POCT-GLUCOSE [id number] 21:46:00 Test Item Value Reference Range Comments POC-GLUCOSE METER (BEAKER) 154 mg/dL 70-110 TESTE D AT [place] [id number] [facility] (test code = 1538) [place] [address] POCT-GLUCOSE [id number] 18:17:00 Test Item Value Reference Range Comments POC-GLUCOSE METER (BEAKER) 175 mg/dL 70-110 TESTE D AT [place] [id number] [facility] (test code = 1538) [place] [address] RAD, CHEST, 1 VIEW, NON [id number] 14:56:00Reason for exam:->SOBShould this be performed at the bedside?->YesFINAL REPORT INDICATION: SOB COMPARISON: May 13, 2017 TECHNIQUE: Chest radiograph, single view, portable technique. FINDINGS / IMPRESSION: Enlarged heart shadow, small rightpleural effusion, and pulmonary venous congestion, again demonstrated. No pneumothorax or consolidation. Osseous structures unremarkable. Signed: Satnam Jean MDReport Verified Date/Time: 05/14/2017 14:56:58 Reading Location: [facility] Reading Room POCT-GLUCOSE [id number] 12:18:00 Test Item Value Reference Range Comments POC-GLUCOSE METER (BEAKER) 313 mg/dL 70-110 TESTE D AT [facility] [address] [facility] (test code = 1538) [facility] [address] HIV-1 ANTIGEN WITH HIV-1/2 [id number] 12:07:00 Test Item Value Reference Range Comments HIV-1 ANTIGEN WITH HIV 1\T\2 ANTIBODY (2) Nonreactive Nonrea ctive (BEAKER) (test code = 2586) CALCIUM, [id number] 06:37:00 Test Item Value Reference Range Comments CALCIUM IONIZED (BEAKER) (test code = 698) 1.08 mmol/L 1.12- 1.27 PH, BLOOD (BEAKER) (test code = 1810) 7.25 BASIC METABOLIC [id number] 06:26:00 Test Item Value Reference Range Comments SODIUM (BEAKER) (test 134 meq/L 136-145 code = 381) POTASSIUM (BEAKER) (test 5.1 meq/L 3.5-5.1 code = 379) CHLORIDE (BEAKER) (test 103 meq/L 98-107 code = 382) CO2 (BEAKER) (test code = 25 meq/L 22-29 355) BLOOD UREA NITROGEN 45 mg/dL 7-21 (BEAKER) (test code = 354) CREATININE (BEAKER) (test 2.92 mg/dL 0.57-1.25 code = 358) GLUCOSE RANDOM (BEAKER) 163 mg/dL 70-105 (test code = 652) CALCIUM (BEAKER) (test 8.1 mg/dL 8.4-10.2 code = 697) EGFR (BEAKER) (test code 16 mL/min/1.73 sq m EST IMATED GFR IS NOT = 1092) ACCURATE CREA TININE CLEARANCE IN PRE DICTING GLOMERULAR FILTR ATION RATE. ESTIMATED GFR IS NOT APPLICABLE F OR DIALYSIS PATIENT S. B-TYPE NATRIURETIC FACTOR (BNP)2017-05-14 06:26:00 Test Item Value Reference Range Comments B-TYPE NATRIURETIC PEPTIDE (BEAKER) (test code = 474 pg/mL 0-100 700) [id number] 06:25:00 Test Item Value Reference Range Comments PHOSPHORUS (BEAKER) (test code = 604) 5.7 mg/dL 2.3-4.7 [id number] 06:25:00 Test Item Value Reference Range Comments MAGNESIUM (BEAKER) (test code = 627) 1.5 mg/dL 1.6-2.6 CBC W/PLT COUNT & AUTO [id number] 06:07:00 Test Item Value Reference Range Comments WHITE BLOOD CELL COUNT (BEAKER) (test code = 8.9 K/ L 3.5 -10.5 775) RED BLOOD CELL COUNT (BEAKER) (test code = 761) 4.32 M/ L 3.93-5.22 HEMOGLOBIN (BEAKER) (test code = 410) 11.0 GM/DL 11.2-15.7 HEMATOCRIT (BEAKER) (test code = 411) 36.6 % 34.1-44.9 MEAN CORPUSCULAR VOLUME (BEAKER) (test code = 84.7 fL 79 .4-94.8 753) MEAN CORPUSCULAR HEMOGLOBIN (BEAKER) (test code 25.5 pg 25.6-32.2 = 751) MEAN CORPUSCULAR HEMOGLOBIN CONC (BEAKER) (test 30.1 GM/DL 32.2-35.5 code = 752) RED CELL DISTRIBUTION WIDTH (BEAKER) (test code 14.6 % 11.7-14.4 = 412) PLATELET COUNT (BEAKER) (test code = 756) 201 K/CU MM 150-45 0 MEAN PLATELET VOLUME (BEAKER) (test code = 754) 11.1 fL 9.4-12.3 NUCLEATED RED BLOOD CELLS (BEAKER) (test code = 0 /100 WBC 0-0 413) NEUTROPHILS RELATIVE PERCENT (BEAKER) (test code 55 % = 429) LYMPHOCYTES RELATIVE PERCENT (BEAKER) (test code 36 % = 430) MONOCYTES RELATIVE PERCENT (BEAKER) (test code = 5 % 431) EOSINOPHILS RELATIVE PERCENT (BEAKER) (test code 3 % = 432) BASOPHILS RELATIVE PERCENT (BEAKER) (test code = 1 % 437) NEUTROPHILS ABSOLUTE COUNT (BEAKER) (test code = 4.85 K/ L 1.56-6.13 670) LYMPHOCYTES ABSOLUTE COUNT (BEAKER) (test code = 3.18 K/ L 1.18-3.74 414) MONOCYTES ABSOLUTE COUNT (BEAKER) (test code = 0.47 K/ L 0 .24-0.36 415) EOSINOPHILS ABSOLUTE COUNT (BEAKER) (test code = 0.25 K/ L 0.04-0.36 416) BASOPHILS ABSOLUTE COUNT (BEAKER) (test code = 0.07 K/ L 0 .01-0.08 417) IMMATURE GRANULOCYTES-RELATIVE PERCENT (BEAKER) 0 % 0-1 (test code = 2801) POCT-GLUCOSE [id number] 22:38:00 Test Item Value Reference Range Comments POC-GLUCOSE METER (BEAKER) 262 mg/dL 70-110 TESTE D AT [facility] [address] [facility] (test code = 1538) [place] [address] PROTEIN, RANDOM [id number] 22:18:00 Test Item Value Reference Range Comments PROTEIN, URINE (BEAKER) (test code = 1569) 641 mg/dL 0-14 CREATININE, RANDOM [id number] 22:07:00 Test Item Value Reference Range Comments CREATININE URINE (BEAKER) (test code = 375) 124.9 mg/dL Reference Range: No NormalsURINALYSIS W/ [id number] 22:03:00 Test Item Value Reference Range Comments COLOR (BEAKER) (test code = 470) Yellow CLARITY (BEAKER) (test code = 469) Cloudy SPECIFIC GRAVITY UA (BEAKER) (test code = 468) 1.015 1 .001-1.035 PH UA (BEAKER) (test code = 467) 5.5 5.0-8.0 PROTEIN UA (BEAKER) (test code = 464) 300 mg/dL Negative GLUCOSE UA (BEAKER) (test code = 365) 300 mg/dL Negative KETONES UA (BEAKER) (test code = 371) Negative Negative BILIRUBIN UA (BEAKER) (test code = 462) Negative Negative BLOOD UA (BEAKER) (test code = 461) Trace Negative NITRITE UA (BEAKER) (test code = 465) Negative Negative LEUKOCYTE ESTERASE UA (BEAKER) (test code = Moderate Nega tive 466) UROBILINOGEN UA (BEAKER) (test code = 463) 0.2 mg/dL 0.2-1 .0 RBC UA (BEAKER) (test code = 519) 11 /HPF WBC UA (BEAKER) (test code = 520) 36 /HPF MUCUS (BEAKER) (test code = 1574) Few SQUAMOUS EPITHELIAL (BEAKER) (test code = 516) 12 /HPF HYALINE CASTS (BEAKER) (test code = 514) 66 /LPF CASTS (BEAKER) (test code = 1579) 112 /LPF YEAST (BEAKER) (test code = 1585) Moderate SOURCE(BEAKER) (test code = 2795) Urine, Voided [id number] 19:49:00 Test Item Value Reference Range Comments SODIUM (BEAKER) (test code = 136 meq/L 136-145 381) POTASSIUM (BEAKER) (test code = 5.1 meq/L 3.5-5.1 Specimen slightly hemolyzed 379) CHLORIDE (BEAKER) (test code = 104 meq/L 98-107 382) CO2 (BEAKER) (test code = 355) 25 meq/L 22-29 Call if K > 5POCT-GLUCOSE [id number] 11:37:00 Test Item Value Reference Range Comments POC-GLUCOSE METER (BEAKER) 293 mg/dL 70-110 TESTE D AT [facility] [address] [facility] (test code = 1538) [facility] [address] RAD, CHEST, 1 VIEW, NON [id number] 10:22:00Reason for exam:->SOBShould this be performed at the bedside?->YesFINAL REPORT Chest one view Discussion: There is cardiomegaly and interstitial congestion. A small right-sided effusion is noted. No pneumothorax. IMPRESSIONS: Suspected CHF. Signed: Jeannette Nava Verified Date/Time: 05/13/2017 10:22:34 Reading Location: [facility] Radiology Reading Room POCT-GLUCOSE METER 2017-05-13 08:34:00 Test Item Value Reference Range Comments POC-GLUCOSE METER (BEAKER) 178 mg/dL 70-110 TESTE D AT [facility] [address] [facility] (test code = 1538) [place] [address] POCT-GLUCOSE [id number] 06:53:00 Test Item Value Reference Range Comments POC-GLUCOSE METER (BEAKER) 167 mg/dL 70-110 TESTE D AT [facility] [address] [facility] (test code = 1538) [facility] [address] [id number] 04:48:00 Test Item Value Reference Range Comments BLOOD UREA NITROGEN (BEAKER) (test code = 354) 36 mg/dL 7 -21 [id number] 04:48:00 Test Item Value Reference Range Comments SODIUM (BEAKER) (test code = 381) 139 meq/L 136-145 POTASSIUM (BEAKER) (test code = 379) 5.2 meq/L 3.5-5.1 CHLORIDE (BEAKER) (test code = 382) 109 meq/L 98-107 CO2 (BEAKER) (test code = 355) 23 meq/L 22-29 [id number] 04:48:00 Test Item Value Reference Range Comments CREATININE (BEAKER) (test 1.73 mg/dL 0.57-1.25 code = 358) EGFR (BEAKER) (test code 30 mL/min/1.73 sq m EST IMATED GFR IS NOT = 1092) ACCURATE CREA TININE CLEARANCE IN PRE DICTING GLOMERULAR FILTR ATION RATE. ESTIMATED GFR IS NOT APPLICABLE F OR DIALYSIS PATIENT S. CBC (HEMOGRAM ONLY)2017-05-13 04:33:00 Test Item Value Reference Range Comments WHITE BLOOD CELL COUNT (BEAKER) (test code = 10.2 K/ L 3.5 -10.5 775) RED BLOOD CELL COUNT (BEAKER) (test code = 761) 4.54 M/ L 3.93-5.22 HEMOGLOBIN (BEAKER) (test code = 410) 11.4 GM/DL 11.2-15.7 HEMATOCRIT (BEAKER) (test code = 411) 37.6 % 34.1-44.9 MEAN CORPUSCULAR VOLUME (BEAKER) (test code = 82.8 fL 79 .4-94.8 753) MEAN CORPUSCULAR HEMOGLOBIN (BEAKER) (test code 25.1 pg 25.6-32.2 = 751) MEAN CORPUSCULAR HEMOGLOBIN CONC (BEAKER) (test 30.3 GM/DL 32.2-35.5 code = 752) RED CELL DISTRIBUTION WIDTH (BEAKER) (test code 14.7 % 11.7-14.4 = 412) PLATELET COUNT (BEAKER) (test code = 756) 194 K/CU MM 150-45 0 MEAN PLATELET VOLUME (BEAKER) (test code = 754) 10.9 fL 9.4-12.3 NUCLEATED RED BLOOD CELLS (BEAKER) (test code = 0 /100 WBC 0-0 413) [id number] 23:29:00 Test Item Value Reference Range Comments ACTIVATED CLOTTING TIME 136 sec TESTED A T [facility] [address] (BEAKER) (test code = 441) [place] [address] [id number] 20:13:00 Test Item Value Reference Range Comments ACTIVATED CLOTTING TIME 175 sec TESTED A T [facility] [address] (BEAKER) (test code = 441) [place] [address] [id number] 18:36:00 Test Item Value Reference Range Comments ACTIVATED CLOTTING TIME 202 sec TESTED A T [facility] [address] (BEAKER) (test code = 441) [place] [address] [id number] 18:03:00 Test Item Value Reference Range Comments ACTIVATED CLOTTING TIME 208 sec TESTED A T [facility] [address] (BEAKER) (test code = 441) [place] [address] BASIC METABOLIC [id number] 11:57:00 Test Item Value Reference Range Comments SODIUM (BEAKER) (test 139 meq/L 136-145 code = 381) POTASSIUM (BEAKER) (test 4.9 meq/L 3.5-5.1 code = 379) CHLORIDE (BEAKER) (test 107 meq/L 98-107 code = 382) CO2 (BEAKER) (test code = 27 meq/L 22-29 355) BLOOD UREA NITROGEN 36 mg/dL 7-21 (BEAKER) (test code = 354) CREATININE (BEAKER) (test 1.60 mg/dL 0.57-1.25 code = 358) GLUCOSE RANDOM (BEAKER) 187 mg/dL 70-105 (test code = 652) CALCIUM (BEAKER) (test 8.6 mg/dL 8.4-10.2 code = 697) EGFR (BEAKER) (test code 33 mL/min/1.73 sq m EST IMATED GFR IS NOT = 1092) ACCURATE CREA TININE CLEARANCE IN PRE DICTING GLOMERULAR FILTR ATION RATE. ESTIMATED GFR IS NOT APPLICABLE F OR DIALYSIS PATIENT S. PROTHROMBIN [id number] 11:15:00 Test Item Value Reference Range Comments PROTIME (BEAKER) (test code = 759) 14.8 seconds 11.7-14.7 INR (BEAKER) (test code = 370) 1.2 <=5.9 RECOMMENDED COUMADIN/WARFARIN INR THERAPY RANGESSTANDARD DOSE: 2.0 - 3.0 Includes: PROPHYLAXIS forvenous thrombosis, systemic embolization; TREATMENT for venous thrombosis and/or pulmonary embolus.HIGH RISK: Target INR is 2.5-3.5 for patients with mechanical heart valves.Within 24 hours, if on CoumadinCBC W/PLT COUNT & AUTO [id number] 11:01:00 Test Item Value Reference Range Comments WHITE BLOOD CELL COUNT (BEAKER) (test code = 9.1 K/ L 3.5 -10.5 775) RED BLOOD CELL COUNT (BEAKER) (test code = 761) 4.62 M/ L 3.93-5.22 HEMOGLOBIN (BEAKER) (test code = 410) 11.7 GM/DL 11.2-15.7 HEMATOCRIT (BEAKER) (test code = 411) 38.0 % 34.1-44.9 MEAN CORPUSCULAR VOLUME (BEAKER) (test code = 82.3 fL 79 .4-94.8 753) MEAN CORPUSCULAR HEMOGLOBIN (BEAKER) (test code 25.3 pg 25.6-32.2 = 751) MEAN CORPUSCULAR HEMOGLOBIN CONC (BEAKER) (test 30.8 GM/DL 32.2-35.5 code = 752) RED CELL DISTRIBUTION WIDTH (BEAKER) (test code 14.5 % 11.7-14.4 = 412) PLATELET COUNT (BEAKER) (test code = 756) 205 K/CU MM 150-45 0 MEAN PLATELET VOLUME (BEAKER) (test code = 754) 10.6 fL 9.4-12.3 NUCLEATED RED BLOOD CELLS (BEAKER) (test code = 0 /100 WBC 0-0 413) NEUTROPHILS RELATIVE PERCENT (BEAKER) (test code 59 % = 429) LYMPHOCYTES RELATIVE PERCENT (BEAKER) (test code 32 % = 430) MONOCYTES RELATIVE PERCENT (BEAKER) (test code = 5 % 431) EOSINOPHILS RELATIVE PERCENT (BEAKER) (test code 3 % = 432) BASOPHILS RELATIVE PERCENT (BEAKER) (test code = 1 % 437) NEUTROPHILS ABSOLUTE COUNT (BEAKER) (test code = 5.36 K/ L 1.56-6.13 670) LYMPHOCYTES ABSOLUTE COUNT (BEAKER) (test code = 2.86 K/ L 1.18-3.74 414) MONOCYTES ABSOLUTE COUNT (BEAKER) (test code = 0.48 K/ L 0 .24-0.36 415) EOSINOPHILS ABSOLUTE COUNT (BEAKER) (test code = 0.27 K/ L 0.04-0.36 416) BASOPHILS ABSOLUTE COUNT (BEAKER) (test code = 0.08 K/ L 0 .01-0.08 417) IMMATURE GRANULOCYTES-RELATIVE PERCENT (BEAKER) 0 % 0-1 (test code = 2801) POCT-GLUCOSE [id number] 12:35:00 Test Item Value Reference Range Comments POC-GLUCOSE METER (BEAKER) 249 mg/dL 70-110 TESTE D AT [address] (test code = 1538) [place] [address] POCT-GLUCOSE [id number] 09:10:00 Test Item Value Reference Range Comments POC-GLUCOSE METER (BEAKER) 155 mg/dL 70-110 TESTE D AT [address] (test code = 1538) [place] [address] BASIC METABOLIC [id number] 05:39:00 Test Item Value Reference Range Comments SODIUM (BEAKER) (test 138 meq/L 136-145 code = 381) POTASSIUM (BEAKER) (test 4.7 meq/L 3.5-5.1 code = 379) CHLORIDE (BEAKER) (test 107 meq/L 98-107 code = 382) CO2 (BEAKER) (test code = 25 meq/L 22-29 355) BLOOD UREA NITROGEN 36 mg/dL 7-21 (BEAKER) (test code = 354) CREATININE (BEAKER) (test 1.75 mg/dL 0.57-1.25 code = 358) GLUCOSE RANDOM (BEAKER) 126 mg/dL 70-105 (test code = 652) CALCIUM (BEAKER) (test 8.2 mg/dL 8.4-10.2 code = 697) EGFR (BEAKER) (test code 29 mL/min/1.73 sq m EST IMATED GFR IS NOT = 1092) ACCURATE CREA TININE CLEARANCE IN PRE DICTING GLOMERULAR FILTR ATION RATE. ESTIMATED GFR IS NOT APPLICABLE F OR DIALYSIS PATIENT S. [id number] 05:27:00 Test Item Value Reference Range Comments PHOSPHORUS (BEAKER) (test code = 604) 5.0 mg/dL 2.3-4.7 [id number] 05:27:00 Test Item Value Reference Range Comments MAGNESIUM (BEAKER) (test code = 627) 1.6 mg/dL 1.6-2.6 POCT-GLUCOSE [id number] 05:25:00 Test Item Value Reference Range Comments POC-GLUCOSE METER (BEAKER) 144 mg/dL 70-110 TESTE D AT [address] (test code = 1538) [place] [address] PROTHROMBIN [id number] 04:58:00 Test Item Value Reference Range Comments PROTIME (BEAKER) (test code = 759) 14.2 seconds 11.7-14.7 INR (BEAKER) (test code = 370) 1.1 <=5.9 RECOMMENDED COUMADIN/WARFARIN INR THERAPY RANGESSTANDARD DOSE: 2.0 - 3.0 Includes: PROPHYLAXIS forvenous thrombosis, systemic embolization; TREATMENT for venous thrombosis and/or pulmonary embolus.HIGH RISK: Target INR is 2.5-3.5 for patients with mechanical heart valves.POCT-GLUCOSE [id number] 23:55:00 Test Item Value Reference Range Comments POC-GLUCOSE METER (BEAKER) 86 mg/dL 70-110 TESTE D AT [address] (test code = 1538) [place] [address] B-TYPE NATRIURETIC FACTOR (BNP)2017-04-22 18:13:00 Test Item Value Reference Range Comments B-TYPE NATRIURETIC PEPTIDE (BEAKER) (test code = 1203 pg/mL 0-100 700) POCT-GLUCOSE [id number] 17:36:00 Test Item Value Reference Range Comments POC-GLUCOSE METER (BEAKER) 259 mg/dL 70-110 TESTE D AT [facility] [address] [facility] (test code = 1538) [facility] [address] HEMOGLOBIN [id number] 14:24:00 Test Item Value Reference Range Comments HEMOGLOBIN A1C (BEAKER) (test code = 368) 10.5 % 4.3-6. 1 POCT-GLUCOSE [id number] 12:34:00 Test Item Value Reference Range Comments POC-GLUCOSE METER (BEAKER) 207 mg/dL 70-110 TESTE D AT [facility] [address] [facility] (test code = 1538) [place] [address] [id number] 07:53:00 Test Item Value Reference Range Comments PHOSPHORUS (BEAKER) (test code = 604) 3.9 mg/dL 2.3-4.7 [id number] 07:53:00 Test Item Value Reference Range Comments MAGNESIUM (BEAKER) (test code = 627) 1.6 mg/dL 1.6-2.6 BASIC METABOLIC [id number] 07:53:00 Test Item Value Reference Range Comments SODIUM (BEAKER) (test 139 meq/L 136-145 code = 381) POTASSIUM (BEAKER) (test 4.5 meq/L 3.5-5.1 code = 379) CHLORIDE (BEAKER) (test 108 meq/L 98-107 code = 382) CO2 (BEAKER) (test code = 25 meq/L 22-29 355) BLOOD UREA NITROGEN 29 mg/dL 7-21 (BEAKER) (test code = 354) CREATININE (BEAKER) (test 1.54 mg/dL 0.57-1.25 code = 358) GLUCOSE RANDOM (BEAKER) 211 mg/dL 70-105 (test code = 652) CALCIUM (BEAKER) (test 8.5 mg/dL 8.4-10.2 code = 697) EGFR (BEAKER) (test code 34 mL/min/1.73 sq m EST IMATED GFR IS NOT = 1092) ACCURATE CREA TININE CLEARANCE IN PRE DICTING GLOMERULAR FILTR ATION RATE. ESTIMATED GFR IS NOT APPLICABLE F OR DIALYSIS PATIENT S. TROPONIN [id number] 07:29:00 Test Item Value Reference Range Comments TROPONIN I (BEAKER) (test code = 397) 0.05 ng/mL 0.00-0.03 Troponin I (TnI) levels [...] acidosis, acute neurological disease, and persistent tachyarrhythmia.PROTHROMBIN TIME/[id number] 07:01:00 Test Item Value Reference Range Comments PROTIME (BEAKER) (test code = 759) 13.8 seconds 11.7-14.7 INR (BEAKER) (test code = 370) 1.1 <=5.9 RECOMMENDED COUMADIN/WARFARIN INR THERAPY RANGESSTANDARD DOSE: 2.0 - 3.0 Includes: PROPHYLAXIS forvenous thrombosis, systemic embolization; TREATMENT for venous thrombosis and/or pulmonary embolus.HIGH RISK: Target INR is 2.5-3.5 for patients with mechanical heart valves.POCT-GLUCOSE [id number] 06:28:00 Test Item Value Reference Range Comments POC-GLUCOSE METER (ANDalyze) 198 mg/dL 70-110 TESTE D AT [facility] [address] [facility] (test code = 1538) [facility] [phone] CREATINE KINASE (CK), TOTAL AND [id number] 00:49:00 Test Item Value Reference Range Comments CREATINE KINASE TOTAL (BEAKER) (test code = 380) 69 U/L 29-200 CREATINE KINASE-MB (BEAKER) (test code = 750) 4.3 ng/mL 0. 0-6.6 CREATINE KINASE-MB INDEX (BEAKER) (test code = 6.2 % 395) CK-MB Reference Range:<6.7 Normal6.7-10.0 Borderline>10.0 AbnormalTROPONIN [id number] 00:49:00 Test Item Value Reference Range Comments TROPONIN I (BEAKER) (test code = 397) 0.05 ng/mL 0.00-0.03 Troponin I (TnI) levels [...] acidosis, acute neurological disease, and persistent tachyarrhythmia.POCT-GLUCOSE [id number] 20:44:00 Test Item Value Reference Range Comments POC-GLUCOSE METER (ROBERT) 269 mg/dL 70-110 TESTE D AT [facility] [address] [facility] (test code = 1538) [place] [id number]
--- OUTSIDE RECORDS SUMMARY | 2019-07-06 17:35 | XMS REPORT ---
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 [id number] 108 (90 Base) Active INH AISHWARYA 2 MCG/ACT PUFFS 3 TIMES A DAY NEEDED FOR SHORTNESS OF BREATH Furosemide ND 21208442507 40 MG Active TAKE BY MOUTH 1 TABLET NEEDED FOR SHORTNESS OF BREATH MAY TAKE NEEDED IF WITH INCREASE EDEMA Acetaminophen-C ND 61900087192 300-30 MG Oral Activ e (Schedule odeine #3 III Drug) TAKE 1 TABLET BY MOUTH EVERY 6 HOURS NEEDED FOR PAIN Carvedilol [facility] 35038308509 12.5 MG Oral Active TAKE 1 TABLET BY MOUTH TWICE A DAY Isosorbide [facility] 29690889143 30 MG Oral Active TAKE 1 Mononitrate ER TABLET BY MOUTH EVERY DAY Atorvastatin [facility] 21797238979 40 MG Oral Active TAKE 1 Calcium TABLET BY MOUTH EVERY DAY Levemir [facility] 17073327024 100 UNIT/ML Active INJECT 1 0 FlexTouch Subcutaneous UNITS BEL OW THE SKIN IN THE MORNING Vitamin D [facility] [id number] 05876 UNIT Oral Active TA KE ONE (Ergocalciferol CAPSULE BY ) MOUTH ONE TIME PER WEEK BuPROPion HCl [facility] 36565852404 75 MG Oral Active BRAD E 1 TABLET BY MOUTH EVERY DAY Clopidogrel [facility] 50339107094 75 MG Oral Active TAKE 1 Bisulfate TABLET BY MOUTH EVERY DAY Gabapentin [facility] 55929407066 100 MG Oral Active TAKE 1 CAPSULE BY MOUTH THREE TIMES A DAY HydrALAZINE HCl [facility] 86312618686 100 MG Active TAKE 1 TABLET BY MOUTH THREE TIMES A DAY Advair Diskus [facility] 33690055599 250-50 MCG/DOSE Active INHALE 1 DOSE BY MOUTH TWICE DAILY. RINSE MOUTH AFTER USE Trazodone HCl [facility] 17814217557 50 MG Oral Active BRAD E 1 TABLET BY MOUTH EVERYDAY AT BEDTIME Results No Known Results Summary Purpose eClinicalWorks Submission
[2019-07-06 18:41] LABS: Absolute Lymphocytes (CBC) 2.1 K/uL (0.7-4.9); Basophils % 1.3 % (0-1.3); Hematocrit 29.5 % (36.0-45.0); Lymphocytes % 21.4 % (15.3-44.8); MPV 8.2 fL (7.6-11.3); RBC Red Blood Cell Count 3.57 M/uL (3.86-4.86)
[2019-07-06 18:42] LABS: Protime INR 1.25
[2019-07-06 18:45] LABS: Arterial Blood Carboxyhemoglob 2.2 % (0-1.5); Blood Gas Oxyhemoglobin 87.2 % (94-97); Blood O2 Saturation 89.7 % (92-98.5)
[2019-07-06 19:04] LABS: Albumin 2.2 g/dL (3.4-5.0); Bilirubin Direct 0.2 mg/dL (0-0.2); Bilirubin Total 0.5 mg/dL (0.2-1.0); Magnesium 1.7 mg/dL (1.8-2.4); Potassium 3.4 mmol/L (3.5-5.1); Protein, Total 6.8 g/dL (6.4-8.2); Troponin (Emerg Dept Use Only) 0.03 ng/mL (0.0-0.045)
[2019-07-06] MEDS ORDERED: NA CHLORIDE 0.9% 1,000 ML ONE ×2 (19:24→19:52)
--- NOTE | 2019-07-06 19:42 | EDPHYS ---
Physician Documentation [facility] Name: Christy Priest Age: 64 yrs Sex: Female : 1955 Arrival Date: 07/06/2019 Time: 17:22 Bed 5 Private MD: ED Physician Alessio Parry HPI: 07/05 18:59 This 64 yrs old Female presents to ER via EMS with complaints of Altered cralos Mental Status. 18:59 This 64 yrs old Female presents to ER via EMS with complaints of Altered carlos Mental Status, fall this morning, fever and cough. 18:59 The patient presents with confusion, trouble concentrating. Onset: The symptoms/episode carlos began/occurred this morning. Possible causes: unknown. Associated signs and symptoms: Pertinent positives: confusion, dizziness. Patient's baseline: Neuro: alert and fully oriented. 19:01 The patient has shortness of breath with light activity. Duration: The symptoms are carlos continuous, and are steadily getting worse. The patient's shortness of breath is aggravated by exertion, light activity, supine position, is alleviated by elevating head, nebulizer treatment, application of supplemental oxygen. Associated signs and symptoms: Pertinent positives: non-productive cough, fever. Severity of symptoms: At their worst the symptoms were moderate in the emergency department the symptoms are unchanged. Historical: - Allergies: 17:41 Augmentin; ph 17:41 basil; ph 17:41 Morphine; ph 17:41 Nitroglycerin; ph 17:41 Tramadol HCl; ph 17:41 Trazodone; ph 17:41 Vancomycin; ph - Home Meds: 17:41 gabapentin Oral [Active]; Hydralazine Oral [Active]; insulin [Active]; Lasix Oral ph [Active]; Plavix Oral [Active]; - PMHx: 17:41 CHF; COPD; Diabetes - IDDM; ESRD; High Cholesterol; Hypertension; triple bypass; ph uterine cancer; - PSHx: 17:41 Cholecystectomy; Hysterectomy; leg surgery; ph - Immunization history:: Adult Immunizations unknown. - Social history:: Smoking status: Patient reports the use of cigarette tobacco products, denies chronic smoking, but will smoke occasionally. - Family history:: not pertinent. ROS: 19:01 Eyes: Negative for injury, pain, redness, and discharge, ENT: Negative for injury, carlos pain, and discharge, Neck: Negative for injury, pain, and swelling, Cardiovascular: Negative for chest pain, palpitations, and edema, Abdomen/GI: Negative for abdominal pain, nausea, vomiting, diarrhea, and constipation, Back: Negative for injury and pain, : Negative for injury, bleeding, discharge, and swelling, Skin: Negative for injury, rash, and discoloration, Psych: Negative for depression, anxiety, suicide ideation, homicidal ideation, and hallucinations, Allergy/Immunology: Negative for hives, rash, and allergies, Endocrine: Negative for neck swelling, polydipsia, polyuria, polyphagia, and marked weight changes, Hematologic/Lymphatic: Negative for swollen nodes, abnormal bleeding, and unusual bruising. 19:01 Respiratory: Positive for cough, shortness of breath, at rest. 19:01 Respiratory: Positive for wheezing, expiratory. 19:01 Abdomen/GI: 19:01 MS/extremity: Positive for erythema, swelling, of the right leg and left leg. Exam: 19:01 Head/Face: Normocephalic, atraumatic. Eyes: Pupils equal round and reactive to light, carlos extra-ocular motions intact. Lids and lashes normal. Conjunctiva and sclera are non-icteric and not injected. Cornea within normal limits. Periorbital areas with no swelling, redness, or edema. Chest/axilla: Normal chest wall appearance and motion. Nontender with no deformity. No lesions are appreciated. Abdomen/GI: Soft, non-tender, with normal bowel sounds. No distension or tympany. No guarding or rebound. No evidence of tenderness throughout. Back: No spinal tenderness. No costovertebral tenderness. Full range of motion. 19:01 Constitutional: The patient appears febrile. 19:01 Neck: External neck: is normal, no acute changes, Trachea: is midline with no obvious abnormalities, no acute changes, ROM/movement: is normal, no acute changes. 19:01 Chest/axilla: Inspection: normal, no acute changes. 19:01 Cardiovascular: Rate: normal, Rhythm: regular, Pulses: Pulses are 4+ in bilateral radial, brachial, femoral, popliteal, posterior tibial and and dorsalis pedis arteries.. 19:01 Respiratory: mild respiratory distress is noted, Respirations: labored breathing, that is mild, Breath sounds: decreased breath sounds, that are moderate, rhonchi, that are mild, stridor, is not appreciated, + upper airway congestion. wheezing: expiratory Respiratory rate: 24 Vital Signs: 17:31 BP 110 / 45; Pulse 71; Resp 22; Temp 99.5; Pulse Ox 80% on R/A; Weight 77.11 kg; ph 18:55 BP 107 / 61; Pulse 59; Resp 20; Pulse Ox 95% on 6 lpm NC; ph 20:16 BP 117 / 58; Pulse 61; Resp 20; Pulse Ox 96% on BiPAP; ao 21:00 BP 106 / 47; Pulse 61; Resp 16; Pulse Ox 98% on BiPAP; ao 22:00 BP 110 / 52; Pulse 56; Resp 20; Pulse Ox 98% ; ao 23:19 BP 114 / 46; Pulse 75; Resp 16; Pulse Ox 87% on BiPAP; ao Procedures: 19:04 Peripheral line: by aseptic technique a peripheral line was placed in the left external carlos jugular vein. MDM: 17:58 Patient medically screened. [facility] 19:04 Data reviewed: vital signs, nurses notes, lab test result(s), EKG, radiologic studies, [facility] CT scan, plain films. 07/05 17:57 Order name: Glucose, Ancillary Testing; Complete Time: 18:59 EDOR 07/05 18:00 Order name: Basic Metabolic Panel; Complete Time: 19:28 [facility] 07/05 18:00 Order name: CBC with Diff; Complete Time: 18:59 [facility] 07/05 18:00 Order name: LFT's; Complete Time: 19:28 [facility] 07/05 18:00 Order name: Magnesium; Complete Time: 19:29 [facility] 07/05 18:00 Order name: NT PRO-BNP; Complete Time: 19:29 [facility] 07/05 18:00 Order name: PT-INR; Complete Time: 18:59 [facility] 07/05 18:00 Order name: Troponin (emerg Dept Use Only); Complete Time: 19:29 [facility] 07/05 18:00 Order name: Blood Culture Adult (2) [facility] 07/05 18:00 Order name: Lactate; Complete Time: 19:29 [facility] 07/05 18:00 Order name: Influenza Screen (a \T\ B); Complete Time: 18:59 [facility] 07/05 18:00 Order name: Urine Culture [facility] 07/05 18:00 Order name: ABG; Complete Time: 18:59 [facility] 07/05 18:47 Order name: Strep; Complete Time: 19:29 [facility] 07/05 18:00 Order name: XRAY Chest (1 view) [facility] 07/05 18:41 Order name: CT Traumagram (Head C Spine CAP wo con) [facility] 07/05 18:47 Order name: COVID-19 [facility] 07/05 19:20 Order name: Throat Culture [facility] 07/05 19:33 Order name: BIPAP [facility] 07/05 19:49 Order name: Urine Dipstick--Ancillary (enter results) [place] 07/05 21:22 Order name: Comprehensive Metabolic Panel [facility] 07/05 21:23 Order name: Comprehensive Metabolic Panel [facility] 07/05 21:24 Order name: CBC with Automated Diff [facility] 07/05 21:24 Order name: CBC with Automated Diff [facility] 07/05 18:00 Order name: EKG; Complete Time: 18:02 [facility] 07/05 18:00 Order name: Cardiac monitoring; Complete Time: 18:43 [facility] 07/05 18:00 Order name: EKG - Nurse/Tech; Complete Time: 18:43 [facility] 07/05 18:00 Order name: IV Saline Lock; Complete Time: 18:43 [facility] 07/05 18:00 Order name: Labs collected and sent; Complete Time: 18:43 [facility] 07/05 18:00 Order name: O2 Per Protocol; Complete Time: 18:43 [facility] 07/05 18:00 Order name: O2 Sat Monitoring; Complete Time: 18:43 [facility] 07/05 18:00 Order name: Urine Dipstick-Ancillary (obtain specimen); Complete Time: 20:14 [facility] 07/05 18:48 Order name: Greene; Complete Time: 20:13 [facility] 07/05 21:22 Order name: CONS Pharmacy Consult [facility] 07/05 21:22 Order name: CONS Physician Consult [facility] 07/05 21:22 Order name: CONS Physician Consult [facility] 07/05 21:24 Order name: NPO EDOR Administered Medications: 19:29 Not Given (Duplicate Order): NS 0.9% 1000 ml IV at 125 ml/hr continuous carlos 19:52 Drug: SOLU-Medrol 125 mg Route: IVP; Site: left hand; ao 22:08 Follow up: Response: No adverse reaction ao 19:52 Not Given (COVID R/O): Xopenex 2.5 mg Inhalation once ao 19:52 Not Given (COVID R/O): AtroVENT Aerosol 0.5 mg Inhalation once ao 19:53 Drug: Lasix 60 mg Route: IVP; Site: left wrist; ao 22:08 Follow up: Response: No adverse reaction ao 19:53 Drug: Tylenol 650 mg Route: PO; ao 22:08 Follow up: Response: No adverse reaction ao 19:53 Drug: Magnesium Sulfate 1 grams Route: IVPB; Infused Over: 1 hrs; Site: left wrist; ao 22:10 Follow up: IV Status: Completed infusion ao 19:54 Drug: fentaNYL (PF) 25 mcg Route: IVP; Site: right wrist; ao 22:08 Follow up: Response: No adverse reaction ao 19:54 Drug: Zofran (Ondansetron) 4 mg Route: IVP; Site: left wrist; ao 22:09 Follow up: Response: No adverse reaction ao 22:07 Drug: Cefepime 1 grams Route: IVPB; Rate: 200 ml/hr; Infused Over: 30 mins; Site: right ao forearm; 22:10 Follow up: IV Status: Completed infusion ao Disposition: 07/06/19 19:41 Hospitalization ordered by Annmarie Carrasco for Inpatient Admission. Preliminary diagnosis are Chronic obstructive pulmonary disease with (acute) exacerbation, Cardiomegaly, Unspecified combined systolic (congestive) and diastolic (congestive) heart failure, Hypoxemia, Type 1 diabetes mellitus, Unspecified kidney failure - chronic , Fall due to bumping against object. - Bed requested for Telemetry/MedSurg (Inpatient). - Status is Inpatient Admission. sg - Condition is Fair. - Problem is new. - Symptoms have improved. Signatures: Dispatcher [employer] EDMS Aba Mendez RN RN sg Alessio Parry MD MD cha Lasagna, Tonya RN RN tl1 Patricia Hood RN RN Abhay Omer RN RN ao Corrections: (The following items were deleted from the chart) 22:52 19:41 Hospitalization Ordered by Annmarie Carrasco MD for Inpatient Admission. Preliminary tl1 diagnosis is Chronic obstructive pulmonary disease with (acute) exacerbation; Cardiomegaly; Unspecified combined systolic (congestive) and diastolic (congestive) heart failure; Hypoxemia; Type 1 diabetes mellitus; Unspecified kidney failure - chronic ; Fall due to bumping against object. Bed requested for Telemetry/MedSurg (Inpatient). Status is Inpatient Admission. Condition is Fair. Problem is new. Symptoms have improved. carlos 23:22 22:52 07/06/2019 19:41 Hospitalization Ordered by Annmarie Carrasco MD for Inpatient tl1 Admission. Preliminary diagnosis is Chronic obstructive pulmonary disease with (acute) exacerbation; Cardiomegaly; Unspecified combined systolic (congestive) and diastolic (congestive) heart failure; Hypoxemia; Type 1 diabetes mellitus; Unspecified kidney failure - chronic ; Fall due to bumping against object. Bed requested for Telemetry/MedSurg (Inpatient). Status is Inpatient Admission. Condition is Fair. Problem is new. Symptoms have improved. tl1 07/06 00:04 04 23:22 07/06/2019 19:41 Hospitalization Ordered by Annmarie Carrasco MD for Inpatient sg Admission. Preliminary diagnosis is Chronic obstructive pulmonary disease with (acute) exacerbation; Cardiomegaly; Unspecified combined systolic (congestive) and diastolic (congestive) heart failure; Hypoxemia; Type 1 diabetes mellitus; Unspecified kidney failure - chronic ; Fall due to bumping against object. Bed requested for Telemetry/MedSurg (Inpatient). Status is Inpatient Admission. Condition is Fair. Problem is new. Symptoms have improved. tl1
--- NOTE | 2019-07-06 19:42 | ER ---
Nurse's Notes [facility] Name: Christy Priest Age: 64 yrs Sex: Female : 1955 Arrival Date: 07/06/2019 Time: 17:22 Bed 5 Private MD: Diagnosis: Chronic obstructive pulmonary disease with (acute) exacerbation;Cardiomegaly;Unspecified combined systolic (congestive) and diastolic (congestive) heart failure;Hypoxemia;Type 1 diabetes mellitus;Unspecified kidney failure-chronic ;Fall due to bumping against object Presentation: 07/05 17:31 Chief complaint: EMS states: Pt is from home, family reports that she fell getting out ph of bed this morning and has been drowsy w/ AMS "off and on all day" Spo2 80% RA, improved w/ NRB, BP 110s systolic, HR 60s and low grade fever, cough also noted hx of COPD, pt drowsy upon arrival to ED, oriented to person and place, reports hitting right side of head when fall occurred, denies LOC. Coronavirus screen: Patient reports a cough. Patient denies shortness of breath or difficulty breathing. Patient denies measured and/or subjective temperature greater than 100.4F prior to today's visit. Patient denies travel on a cruise ship or to a country the [facility] currently lists as an affected area. Patient denies contact with known and/or suspected case of COVID-19. Ebola Screen: No symptoms or risks identified at this time. Initial Sepsis Screen: Does the patient meet any 2 criteria? Altered Mental Status. Does the patient have a suspected source of infection? No. Patient's initial sepsis screen is negative. Risk Assessment: Do you want to hurt yourself or someone else? Patient reports no desire to harm self or others. Onset of symptoms was July 06, 2019. 17:31 Method Of Arrival: EMS: [facility] ph 17:31 Acuity: DENNY 2 ph Historical: - Allergies: 17:41 Augmentin; ph 17:41 basil; ph 17:41 Morphine; ph 17:41 Nitroglycerin; ph 17:41 Tramadol HCl; ph 17:41 Trazodone; ph 17:41 Vancomycin; ph - Home Meds: 17:41 gabapentin Oral [Active]; Hydralazine Oral [Active]; insulin [Active]; Lasix Oral ph [Active]; Plavix Oral [Active]; - PMHx: 17:41 CHF; COPD; Diabetes - IDDM; ESRD; High Cholesterol; Hypertension; triple bypass; ph uterine cancer; - PSHx: 17:41 Cholecystectomy; Hysterectomy; leg surgery; ph - Immunization history:: Adult Immunizations unknown. - Social history:: Smoking status: Patient reports the use of cigarette tobacco products, denies chronic smoking, but will smoke occasionally. - Family history:: not pertinent. Screenin:40 Abuse screen: Denies threats or abuse. Denies injuries from another. Nutritional ph screening: No deficits noted. Tuberculosis screening: No symptoms or risk factors identified. Fall Risk None identified. Assessment: 17:50 General: Appears in no apparent distress. uncomfortable, Behavior is calm, cooperative, ph appropriate for age. Pain: Complains of pain in buttocks. Neuro: Level of Consciousness is awake, obeys commands, confused, lethargic, Oriented to person, place. Cardiovascular: Capillary refill is sluggish Patient's skin is warm and dry. Edema is 3+ to waist, left midcalf, left ankle, left foot, right midcalf, right ankle and right foot Rhythm is sinus bradycardia. Respiratory: Reports shortness of breath at rest cough that is productive, Airway is patent Respiratory effort is even, unlabored, Respiratory pattern is regular, tachypnea. GI: Abdomen is round Patient currently denies abdominal pain, nausea, vomiting. Derm: Skin is fragile, is thin, Skin temperature is warm. Musculoskeletal: Circulation, motion, and sensation intact. Range of motion: intact in all extremities. 20:32 Reassessment: [facility] notified of COVID testing, awaiting a call sg back at this time. 20:42 Reassessment: Svetlana Tavarez with the Health [facility] has called back at this time, sg awaiting a PUI case number, pt to be admitted as ordered. 07/06 09:12 Reassessment: received PUI # from Karma at [facility] [place] ([id number]). iw Vital Signs: 07/05 17:31 BP 110 / 45; Pulse 71; Resp 22; Temp 99.5; Pulse Ox 80% on R/A; Weight 77.11 kg; ph 18:55 BP 107 / 61; Pulse 59; Resp 20; Pulse Ox 95% on 6 lpm NC; ph 20:16 BP 117 / 58; Pulse 61; Resp 20; Pulse Ox 96% on BiPAP; ao 21:00 BP 106 / 47; Pulse 61; Resp 16; Pulse Ox 98% on BiPAP; ao 22:00 BP 110 / 52; Pulse 56; Resp 20; Pulse Ox 98% ; ao 23:19 BP 114 / 46; Pulse 75; Resp 16; Pulse Ox 87% on BiPAP; ao ED Course: 17:22 Patient arrived in ED. ss 17:22 Patient has correct armband on for positive identification. Bed in low position. Call jp3 light in reach. Side rails up X 1. Side rails up X2. Pillow given. Verbal reassurance given. secured entrance monitor on. Pulse ox on. NIBP on. 17:31 Patricia Hood, RN is Primary Nurse. ph 17:40 Triage completed. ph 17:41 Arm band placed on Patient placed in an exam room, on a stretcher. ph 17:45 Maintain EMS IV. Dressing intact. Good blood return noted. Site clean \\T\\ dry. Gauge \\T\\ anuel 3 site: 22-gauge in Right Volar Wrist. 17:58 Alessio Parry MD is Attending Physician. carlos 18:25 Initial lab(s) drawn, by me, sent to lab. First set of blood cultures drawn by me, Flu jp3 and/or RSV swab sent to lab. 18:32 Assisted to bedside commode. jp3 19:21 XRAY Chest (1 view) In Process Unspecified. EDMS 19:37 Annmarie Carrasco MD is Hospitalizing Provider. carlos 20:12 CT Traumagram (Head C Spine CAP wo con) In Process Unspecified. EDMS 23:23 No provider procedures requiring assistance completed. Patient admitted, IV remains in ao place. Administered Medications: 19:29 Not Given (Duplicate Order): NS 0.9% 1000 ml IV at 125 ml/hr continuous carlos 19:52 Drug: SOLU-Medrol 125 mg Route: IVP; Site: left hand; ao 22:08 Follow up: Response: No adverse reaction ao 19:52 Not Given (COVID R/O): Xopenex 2.5 mg Inhalation once ao 19:52 Not Given (COVID R/O): AtroVENT Aerosol 0.5 mg Inhalation once ao 19:53 Drug: Lasix 60 mg Route: IVP; Site: left wrist; ao 22:08 Follow up: Response: No adverse reaction ao 19:53 Drug: Tylenol 650 mg Route: PO; ao 22:08 Follow up: Response: No adverse reaction ao 19:53 Drug: Magnesium Sulfate 1 grams Route: IVPB; Infused Over: 1 hrs; Site: left wrist; ao 22:10 Follow up: IV Status: Completed infusion ao 19:54 Drug: fentaNYL (PF) 25 mcg Route: IVP; Site: right wrist; ao 22:08 Follow up: Response: No adverse reaction ao 19:54 Drug: Zofran (Ondansetron) 4 mg Route: IVP; Site: left wrist; ao 22:09 Follow up: Response: No adverse reaction ao 22: Drug: Cefepime 1 grams Route: IVPB; Rate: 200 ml/hr; Infused Over: 30 mins; Site: right ao forearm; 22:10 Follow up: IV Status: Completed infusion ao Outcome: 19:41 Decision to Hospitalize by Provider. carlos 07/06 00:04 Patient left the ED. sg Signatures: Dispatcher [employer] EDMS Aba Mendez RN RN sg Anderson, Corey, MD MD cha Williams, Irene, RN RN iw Smirch, Shelby, RN RN ss Hall, Patricia, RN RN ph Ortiz, Alex, RN RN ao Pisarski, Jacob jp3
[2019-07-06] MEDS ORDERED: ACETAMINOPHEN 325 MG TABLET ONE (19:51)
[2019-07-06] MEDS ORDERED: FUROSEMIDE 20 MG/ 2ML VIAL ONE (19:51)
[2019-07-06] MEDS ORDERED: IPRATROPIUM BROM 0.5MG/2.5ML ONE (19:51)
[2019-07-06] MEDS ORDERED: METHYLPREDNISOLONE 125 MG INJ ONE (19:51)
[2019-07-06] MEDS ORDERED: ONDANSETRON 4 MG/2 ML VIAL ONE (19:52)
[2019-07-06] MEDS ORDERED: MAGNESIUM SULFATE 1 gm IVPB 1 GM/100 ML BAG IV ONE (19:52)
[2019-07-06] MEDS ORDERED: FENTANYL CITR 100 MCG/2 ML ONE (19:52)
[2019-07-06] MEDS ORDERED: LEVALBUTEROL 1.25 MG/3 ML NEB ONE (19:52)
[2019-07-06] MEDS ORDERED: FUROSEMIDE 40 MG/4 ML VIAL ONE (19:52)
--- NOTE | 2019-07-06 20:30 | RAD REPORT ---
EXAM DESCRIPTION: CT - Head C Spine Cap Wo Con - 07/06/2019 8:12 pm TECHNIQUE: Computed axial tomography of the head and cervical spine was obtained. Coronal and sagitt al reconstruction was performed Computed axial tomography of the chest, abdomen and pelvis was obtained. Contrast was not requested. All CT scans are performed using dose optimization technique as appropriate and may include automated exposure control or mA/KV adjustment according to patient size. CLINICAL HISTORY: Head and neck injury with chest and abdominal pain status post fall COMPARISON: CT abdomen 2018 FINDINGS: An intracranial bleed is not seen. The ventricles are normal in caliber. An extra-axial fluid collection is not noted. . Fluid within the sinuses/mastoids is not seen. A cervical fracture is not seen. No dislocation is noted. Moderate central disc herniation suspected C3-4 extruded inferiorly The evaluation of mediastinum, wong, vessels, solid organs and bowel are limited secondary to the lac k of contrast administration. A mediastinal hematoma is not noted. A small to moderate right pleural effusion. Moderate reticular r ight upper lobe opacities The liver,spleen, pancreas, adrenals,kidneys and bladder do not demonstrate a traumatic injury. A Fol ey catheter within the bladder. A moderate amount of ascites. Diffuse edema within the subcutaneous tissues Subacute fracture involves lateral left humeral head IMPRESSION: 1. No acute intracranial abnormality is seen. 2. A cervical fracture is not visualized. If the patient continues have symptoms to suggest intracran ial/spinal cord pathology MRI be recommended 3. No acute traumatic abnormality involving the chest/abdomen/pelvis. 4. Moderate reticular opacities right upper lobe may indicate aspiration pneumonia 5 moderate amount of ascites unchanged from the prior exam
--- NOTE | 2019-07-06 20:32 | RAD REPORT ---
EXAM DESCRIPTION: Butch Single View07/06/2019 7:21 pm CLINICAL HISTORY: Shortness of breath COMPARISON: May 2019 FINDINGS: Small to moderate right pleural effusion Moderate reticular right upper lobe opacities Heart is mildly to moderately enlarged. Postsurgical changes involve the chest IMPRESSION: Moderate right reticular opacities may indicate aspiration pneumonia
[2019-07-06 21:01] LABS: Urine Blood TRACE (NEG); Urine Glucose NEGATIVE (NEG); Urine Protein 2+ (NEG); Urine Specific Gravity 1.025 (1.005-1.030); Urine pH 5.5 (5.0-7.0)
[2019-07-06] MEDS ORDERED: MORPHINE 2 MG/ML SYR IV PRN (21:20)
[2019-07-06] MEDS ORDERED: ONDANSETRON 4 MG/2 ML VIAL IV PRN (21:20)
[2019-07-06] MEDS ORDERED: ACETAMINOPHEN 500 MG TAB PO PRN (21:20)
[2019-07-06] MEDS: NA CHLORIDE 0.9% 1,000 ML IV SCH (22:00)
[2019-07-07 01:36] VITALS: BMI 26.0
[2019-07-07 04:10] LABS: Absolute Lymphocytes (CBC) 0.7 K/uL (0.7-4.9); Basophils % 0.1 % (0-1.3); Hematocrit 30.5 % (36.0-45.0); Lymphocytes % 11.2 % (15.3-44.8); MPV 7.9 fL (7.6-11.3); RBC Red Blood Cell Count 3.61 M/uL (3.86-4.86)
[2019-07-07 04:27] LABS: Albumin 2.2 g/dL (3.4-5.0); Bilirubin Total 0.5 mg/dL (0.2-1.0); Potassium 3.8 mmol/L (3.5-5.1)
[2019-07-07 05:02] LABS: Blood Morphology Comment NOTED (NOT SEEN); Hypochromasia 1+; Platelet Estimate ADEQ; Target Cells 1+
[2019-07-07] MEDS ORDERED: NA CHLORIDE 0.9% 250 ML IV ONE (05:10)
[2019-07-07] MEDS: CODEINE 30MG/APAP 300MG TAB PO PRN ×3 (05:25→17:58)
[2019-07-07] MEDS: NA CHLORIDE 0.9% 1,000 ML IV SCH (07:44)
[2019-07-07] MEDS ORDERED: ALBUTEROL 2.5 MG/3 ML NEB SOL IH PRN ×2 (11:56→14:00)
[2019-07-07] MEDS ORDERED: ALBUTEROL INHALER 60 PUFF/8 GM IH PRN (11:56)
--- NOTE | 2019-07-07 12:11 | P.PN ---
Subjective Date of Service: 07/07/19 Patient is doing much better. We have taken her off of BiPAP. Will see how she does with her respiratory status. COVID-19 pending Review of Systems 10-point ROS is otherwise unremarkable Physical Examination - Vital Signs Temperature: 97.2 F Blood Pressure: 146/71 Pulse: 70 Respirations: 18 Pulse Ox (%): 100 - Physical Exam General: Alert, In no apparent distress, Oriented x3 HEENT: Atraumatic, PERRLA, EOMI Neck: Supple, JVD not distended Respiratory: Diminished, Crackles/rales Cardiovascular: Regular rate/rhythm, Normal S1 S2, Systolic murmur Gastrointestinal: Normal bowel sounds, Soft and benign, Non-distended, No tenderness Musculoskeletal: No tenderness Integumentary: No rashes Neurological: Normal speech, Normal tone, Sensation intact, Cranial nerves 3-12 intact Lymphatics: No axilla or inguinal lymphadenopathy - Studies Laboratory Data (last 24 hrs) 07/06/19 18:25: PT 14.7 H, INR 1.25 07/06/19 18:25: WBC 9.6, Hgb 9.4 L, Hct 29.5 L, Plt Count 280 D 07/06/19 18:25: Sodium 129 L, Potassium 3.4 L, BUN 72 H, Creatinine 3.16 H, Glucose 96, Magnesium 1.7 L, Total Bilirubin 0.5, AST 18, ALT 9 L, Alkaline Phosphatase 147 H Microbiology Data (last 24 hrs): 07/06/19 19:00 Nasopharnyx Coronavirus COVID-19 PCR - Final 07/06/19 19:00 Throat Group A Streptococcus Rapid Screen - Final 07/06/19 18:18 Nasopharnyx Influenza Type A Antigen Screen - Final 07/06/19 18:18 Nasopharnyx Influenza Type B Antigen Screen - Final Medications List Reviewed: Yes Assessment & Plan - Problems (Diagnosis) (1) Acute kidney injury Current Visit: Yes Status: Acute (2) Altered mental status Current Visit: Yes Status: Acute (3) Hypoxemia Current Visit: Yes Status: Acute (4) Toxic encephalopathy Current Visit: Yes Status: Acute (5) Acute exacerbation of CHF (congestive heart failure) Onset Date: 02/04/17 Current Visit: No Status: Acute Qualifiers: Qualified Code(s): I50.23 - Acute on chronic systolic (congestive) heart failure (6) Fluid overload Current Visit: No Status: Acute (7) Acute on chronic diastolic CHF (congestive heart failure) Onset Date: 03/17/18 Current Visit: No Status: Chronic (8) CAD (coronary artery disease) Onset Date: 10/03/17 Current Visit: No Status: Chronic Qualifiers: Coronary Disease-Associated Artery/Lesion type: [place] artery [place] vs. transplanted heart: [place] heart Associated angina: with stable angina Qualified Code(s): I25.118 - Atherosclerotic heart disease of [place] coronary artery with other forms of angina pectoris (9) COPD (chronic obstructive pulmonary disease) Onset Date: 02/04/17 Current Visit: No Status: Chronic Qualifiers: COPD type: chronic bronchitis Chronic bronchitis type: mucopurulent Qualified Code(s): J41.1 - Mucopurulent chronic bronchitis (10) History of - depression Current Visit: No Status: Chronic (11) History of - hypertension Current Visit: No Status: Chronic (12) History of coronary artery bypass graft Current Visit: No Status: Chronic (13) Shortness of breath Onset Date: 10/03/17 Current Visit: No Status: Resolved - Plan 1. Continue with IV antibiotics 2. Awaiting culture 3. Repeat chest x-ray 4. Continue with nebs as needed 5. O2 per protocol 6. Continue with gentle hydration 7. Repeat labs including CBC and renal function in a.m. 8. GI and DVT prophylaxis Discharge Plan: Home Plan to discharge in: Greater than 2 days - Advance Directives Does patient have a Living Will: Yes Does patient have a Durable POA for Healthcare: Yes - Code Status/Comfort Care Code Status Assessed: Yes Code Status: Full Code Critical Care: No Time Spent Managing PTS Care (In Minutes): 30
--- NOTE | 2019-07-07 12:11 | P.HP ---
Certification for Inpatient Patient admitted to: Inpatient With expected LOS: >2 Midnights Patient will require the following post-hospital care: None Practitioner: I am a practitioner with admitting privileges, knowledge of patient current condition, hospital course, and medical plan of care. Services: Services provided to patient in accordance with Admission requirements found in Title 42 Section 412.3 of the Code of Federal Regulations Patient History Date of Service: 07/06/19 Reason for admission: AMS; uremic encephalopathy; Dyspnea History of Present Illness: Patient is a 64-year-old female who came to the hospital with altered mentation. She had been drowsy all day and her O2 sats at home were 80%. When she came into the ER the placed her on a non-rebreather and she was 100% after the non- rebreather in her symptoms have started to improve. She also has some acute renal insufficiency. Her urine analysis revealed a UTI. She will be admitted to the hospital for further evaluation. She will also go ahead and get COVID-19 testing. Allergies morphine Allergy (Severe, Verified 07/07/19 00:33) Anaphylaxis vancomycin Allergy (Intermediate, Verified 06/18/19 03:59) Nausea/Vomiting basil Allergy (Verified 06/18/19 03:59) Nausea/Vomiting tramadol Allergy (Verified 07/07/19 04:12) Nausea/Vomiting trazodone Allergy (Verified 06/18/19 03:59) Nausea/Vomiting nitroglycerin Adverse Reaction (Mild, Verified 06/18/19 04:00) Nausea/Vomiting Home Medications: Allopurinol 100 mg PO BID #60 tablet 06/18/19 Aspirin 81 mg PO DAILY #90 tab.chew 06/18/19 Atorvastatin Calcium [Lipitor] 40 mg PO DAILY #30 tablet 06/18/19 Carvedilol [Coreg] 12.5 mg PO BID #60 tablet 06/18/19 Clopidogrel Bisulfate [Plavix*] 75 mg PO DAILY #60 tablet 06/18/19 Codeine/APAP [Tylenol #3*] 1 tab PO Q6HR PRN 06/18/19 Gabapentin 1 tab PO TID #90 capsule 06/18/19 Insulin Detemir [Levemir Flextouch] 10 units SQ DAILY #1 insuln.pen 06/18/19 Nifedipine [Nifedipine ER] 60 mg PO DAILY #30 tablet.er 06/18/19 Albuterol Sulfate [Albuterol Sulfate 0.083% Neb Soln] 1 vial IH Q4H PRN 07/07/19 Albuterol Sulfate [Proair Hfa] 2 puff IH Q4H PRN 07/07/19 Fluticasone [Flovent Hfa 110*] 2 puff IH DAILY 07/07/19 Furosemide 1 tab PO BID 07/07/19 Isosorb Dinit/Hydralazine HCl [Bidil Tablet] 1 tab PO DAILY 07/07/19 Isosorbide Mononitrate [Isosorbide Mononitrate ER] 1 tab PO DAILY 07/07/19 Sertraline [Zoloft*] 25 mg PO DAILY 07/07/19 buPROPion HCL [Bupropion HCl] 1 tab PO DAILY 07/07/19 - Past Medical/Surgical History Has patient received pneumonia vaccine in the past: Yes Diabetic: Yes -: COPD -: Hypertension -: CAD, CABG x4 vessels (August 2017) -: Diabetes mellitus type 2, insulin-dependent -: Chronic diastolic CHF -: Uterine cancer status post hysterectomy -: Chronic renal disease, stage IV -: 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 Her son lives with her. She has 3 children. - Family History Father Medical History: Heart disease, Hypertension, Stroke, Cancer Mother Medical History: GI disease Sister Medical History: Lung disease, Diabetes Brother Medical History: Heart disease, Hypertension, Diabetes Notes: - Social History Smoking Status: Former smoker Alcohol use: No CD- Drugs: No Caffeine use: Yes Place of Residence: Home Review of Systems 10-point ROS is otherwise unremarkable Physical Examination - Vital Signs Temperature: 97.2 F Blood Pressure: 146/71 Pulse: 70 Respirations: 18 Pulse Ox (%): 100 - Physical Exam General: Alert, In no apparent distress, Oriented x3, Oriented x2 HEENT: Atraumatic, PERRLA, Mucous membr. moist/pink, EOMI, Sclerae nonicteric Neck: Supple, 2+ carotid pulse no bruit, No LAD, Without JVD or thyroid abnormality Respiratory: Diminished Cardiovascular: Regular rate/rhythm, Normal S1 S2 Gastrointestinal: Normal bowel sounds, Soft and benign, Non-distended, No tenderness Musculoskeletal: No tenderness Integumentary: No rashes Neurological: Normal speech, Normal tone, Sensation intact, Cranial nerves 3-12 intact, Normal affect, Abnormal gait, Abnormal strength Lymphatics: No axilla or inguinal lymphadenopathy - Studies Laboratory Data (last 24 hrs) 07/06/19 18:25: PT 14.7 H, INR 1.25 07/06/19 18:25: WBC 9.6, Hgb 9.4 L, Hct 29.5 L, Plt Count 280 D 07/06/19 18:25: Sodium 129 L, Potassium 3.4 L, BUN 72 H, Creatinine 3.16 H, Glucose 96, Magnesium 1.7 L, Total Bilirubin 0.5, AST 18, ALT 9 L, Alkaline Phosphatase 147 H Microbiology Data (last 24 hrs): 07/06/19 19:00 Nasopharnyx Coronavirus COVID-19 PCR - Final 07/06/19 19:00 Throat Group A Streptococcus Rapid Screen - Final 07/06/19 18:18 Nasopharnyx Influenza Type A Antigen Screen - Final 07/06/19 18:18 Nasopharnyx Influenza Type B Antigen Screen - Final Assessment & Plan - Problems (Diagnosis) (1) Altered mental status Current Visit: Yes Status: Acute (2) Hypoxemia Current Visit: Yes Status: Acute (3) Acute kidney injury Current Visit: Yes Status: Acute (4) Toxic encephalopathy Current Visit: Yes Status: Acute (5) Hypoxic encephalopathy Current Visit: Yes Status: Acute (6) History of - depression Current Visit: No Status: Chronic (7) History of - hypertension Current Visit: No Status: Chronic (8) History of coronary artery bypass graft Current Visit: No Status: Chronic (9) History of femoropopliteal bypass Current Visit: No Status: Chronic (10) Hyperlipidemia Onset Date: 10/03/17 Current Visit: No Status: Chronic Qualifiers: Hyperlipidemia type: mixed hyperlipidemia Qualified Code(s): E78.2 - Mixed hyperlipidemia (11) Hypertension Current Visit: No Status: Chronic Qualifiers: Hypertension type: essential hypertension Qualified Code(s): I10 - Essential (primary) hypertension (12) UTI (urinary tract infection) Current Visit: No Status: Resolved Qualifiers: Urinary tract infection type: acute cystitis Hematuria presence: without hematuria Qualified Code(s): N30.00 - Acute cystitis without hematuria - Plan Plan: 1. Patient is started on BiPAP 2. COVID-19 testing 3. Nebs as needed 4. Negative pressure room 5. IV antibiotics 6. Strict blood pressure and blood sugar control 7. GI and DVT prophylaxis Discharge Plan: Home Plan to discharge in: Greater than 2 days - Advance Directives Does patient have a Living Will: Yes Does patient have a Durable POA for Healthcare: Yes - Code Status/Comfort Care Code Status Assessed: Yes Code Status: Full Code Critical Care: No Time Spent Managing PTS Care (In Minutes): 50
[2019-07-07] MEDS: GABAPENTIN 100 MG CAP PO SCH ×2 (14:52→21:32)
--- NOTE | 2019-07-07 15:03 | CON ---
Date of Consultation: 07/07/2019 Reason For Consultation: Elevated BUN and creatinine, fluid management. History Of Present Illness: This is a pleasant 64-year-old female, all the information and this enco unter was done as telemedicine as the patient was suspected of COVID-19 using the video and audio con versation. The patient has a significant past medical history of coronary artery disease, status pos t PTCA complicated with congestive heart failure; diastolic dysfunction; COPD; chronic kidney disease , stage 4, baseline creatinine 2.6, GFR of 18. Last evaluation early this month. At that time in [facility] 2.2 with GFR of 22. Nephrotic range of proteinuria secondary to diabetic nephropathy. Full work up was done before. Next, diabetes complicated with neuropathy, nephropathy, and retinopathy, obesit y. The patient came to the hospital complaining from fall, hit her head. According to her, she did not lose consciousness. Patient is complaining from shortness of breath and cough. Patient was plac ed on BiPAP and over the night, was placed on IV hydration. Patient denied any recent change in her medication. Patient is still taking her diuresis. Patient denied any fever or any chills. Past Medical History: Include, 1.Coronary artery disease, status post PTCA, complicated with congestive heart failure, diastolic dy sfunction. 2.COPD. 3.Chronic kidney disease, stage 4, baseline creatinine 2.3, GFR of 20. 4.Hypertension. 5.Nephrotic range of proteinuria secondary to diabetes nephropathy. Full workup was done. 6.Diabetes complicated with neuropathy, nephropathy, and retinopathy. 7.Obesity. Social History: Denies smoking, denies drinking, denies drugs abuse. Allergies: TO MORPHINE, CEFEPIME, TRAMADOL, AND ZOFRAN. Family History.: Positive for diabetes and hypertension. Review of Systems: Head and Neck: Has headache. GI: No nausea, no vomiting. : No polyuria, no dysuria, no hematuria. [employer]: No vaginal discharge. Respiratory: Has shortness of breath, has cough. Cardiovascular: Has orthopnea. Endocrine: No polydipsia. Skin: No rash. Neurologic: Has neuropathy. Musculoskeletal: Generalized fatigue and headache. Physical Examination: Again, this exam is done by the help of the nurse in the room as telemedicine. Vital Signs: Blood pressure 146/71, pulse of 70, afebrile. Patient on BiPAP. Chest: Crackles, bilateral base. Heart: S1, S2. Regular. Abdomen: Nontender. Extremities: +2 edema. Neurologic: No focal. Laboratory Data: Sodium 131, potassium 3.8, bicarb 30, BUN 70, creatinine 3.2, GFR of 14, calcium 7. 8. Albumin 2.2. BNP 26,000. Chest x-ray, cardiomegaly, right pleural effusion. Assessment And Plan: 1.Acute kidney injury on chronic kidney disease, secondary to cardiorenal, slightly on the over volu me side. I am going to go ahead and discontinue IV fluid. Start the patient back on her Lasix and w e will follow up. 2.Hypertension. We will utilize the blood pressure for more diuresis. 3.Chronic kidney disease, stage 4, possible progression to stage 5/end-stage. I had long discussion with the patient regarding possibility that if her kidney function continue to decline, the patient may need to initiate renal replacement therapy. We will follow up. The patient on agreement current ly. 4.Hyponatremia, secondary to dilutional. We will resume Lasix. 5.Coronary artery disease with congestive heart failure, diastolic dysfunction with exacerbation as above. We will try to establish better volume control with the diuresis. 6.Fall, as by primary. 7.Anemia of chronic kidney disease. We will send for the anemia workup. 8.Secondary hyperparathyroidism. We will send for PTH. We will follow up. 9.Gout. Resume allopurinol. 10.Respiratory failure secondary to over volume. We will try to establish better volume control wit h the diuresis. 11.Hypertension. We will utilize the blood pressure for more diuresis. Home medications include is osorbide, sertraline, Zoloft, Lasix, propafenone, allopurinol, carvedilol atorvastatin, nifedipine. Current medications include IV fluid. Thank you, Dr. Carrasco, for allowing us to participate in the care of your patient. GAMA Voice ID: [id number] Report ID: [id number]
--- NOTE | 2019-07-07 15:42 | CON ---
Reason For Consultation: Consultation called because of altered mental status. History Of Present Illness: Ms. Priest is a 64-year-old patient with insulin-dependent diabetes mellit us, COPD, congestive heart failure, end-stage renal disease, dyslipidemia, hypertension, who comes [facility] with difficulty concentrating, cough nonproductive with fever and shortness of breath. She was admitted for rule out of COVID-19 possibility. She also had apparently a fall an d in the emergency room, a trauma series was done, which intracranially showed no abnormal findings. Ventricles were normal in caliber and soft brain tissue shows no abnormalities. The cervical spine showed moderate central disk herniation at C3-4 and is extruded inferiorly. The chest and mediastinu m vessels and organs showed finding of small to moderate right pleural effusion, moderate particular right upper lobe opacity. Other areas were essentially unremarkable including the spleen, liver, spencer creas, adrenal glands, and bladder. She did have a moderate amount of ascites and subcutaneous tissu e, and there was a subacute fracture of the left lateral humeral head. The patient was admitted to [facility] 4th floor COVID unit. Nursing staff indicates that after admission and with receiving intravenous fluids and actually receiving methylprednisolone, she did receive some Lasix for fluid management an d was placed on aspirin, Plavix 75 mg daily, and atorvastatin, she began to return to baseline cognit moo functioning. At the time of my evaluation, I spoke with the patient through video conference. S he was alert, oriented to herself, the hospital, the year, the month, followed all instructions equal ly well. Face is symmetric. She moved both arms and legs without difficulty. She has a chronic iss ue in the right leg and subacute fracture in the humeral head is identified. Past Medical History: As indicated in addition to uterine cancer. Surgical History: Triple bypass surgery, cholecystectomy, hysterectomy, and leg surgery. Allergies: AUGMENTIN, BASIL, MORPHINE, NITROGLYCERIN, TRAMADOL, TRAZODONE, VANCOMYCIN. Medications At Home: Gabapentin, hydralazine, Plavix, Lasix, and she is on insulin regimen. Family History: Noncontributory. Social History: The patient does smoke tobacco cigarettes. No significant alcohol and no drug use. Review of Systems: The patient did have some pain in the right lower extremity. There was a nonproductive cough and charly e fevers. Mild shortness of breath otherwise and those are improved and she is negative on a 10-poin t systems review. Physical Examination: Vital Signs: Blood pressure 165/79, pulse 76, respiratory rate 16, temperature 97.2, oxygen saturati on 100% on BiPAP, FiO2 of 50%. General: Ms. Priest is in her isolation room, in no acute distress. The nursing staff is in with the patient. She appears to be normocephalic, atraumatic with her BiPAP on. She has no obvious swelling or edema in the extremities. Neurological: As indicated, she is alert and oriented to self and situation and place and follows al l commands appropriately. No obvious cranial nerve deficits in terms of the observable face. Tongue cannot be fully evaluated because of BiPAP and motor examination is symmetric in the upper extremiti es. She has some pain limiting movement of the proximal right lower extremity, but appears to move d istally equally well and proximally fully strong on the left. Not fully able to assess sensation, co ordination, reflex, or gait. Laboratory Studies: White blood cell count 6.3, hemoglobin 9.6, hematocrit 30.5, platelets 217. INR 1.25. Arterial blood gas from yesterday shows pH 7.5, pCO2 of 42.3, pO2 of 55.5. Chemistry, sodium 131, potassium 3.8, chloride 91, carbon dioxide 30, BUN 70, creatinine 3.28, glucose ranged from 96 to 140. Lactic acid 0.8, calcium 7.8, magnesium 1.7. ALT, AST essentially unremarkable. Alkaline p hosphatase elevated at 145. Urinalysis shows trace esterase, trace blood and urine cultures did grow greater than 100,000 colony-forming units, 4+ gram-negative rods. Sensitivities not yet back. She did have COVID-19 PCR testing and results are pending. Assessment: Ms. Priest is a 64-year-old patient with resolving encephalopathy, likely encephalopathies of multifactorial etiologies including chronic renal insufficiency and looks like a urinary tract in fection and mild respiratory insufficiency, which is resolving. She has no evidence of an acute stro ke. No seizure-like activity observed and no evidence of a central nervous system infection. Plan: 1.Patient does not require further neurological workup. 2.Continue with treatment of possible urinary tract infection with appropriate antibiotics. 3.The patient may have ventilatory support as appropriate. 4.Continue aspirin and Plavix, high-dose statin given her stroke risk. 5.Once discharged, patient may follow up in Dr. Dorado's clinic 1 month later. ISABEL Voice ID: [id number] Report ID: [id number]
[2019-07-07] MEDS: carvediloL 12.5 MG TAB PO SCH ×2 (17:58→21:32)
[2019-07-07] MEDS ORDERED: carvediloL 3.125 MG TAB PO SCH (21:00)
[2019-07-07] MEDS: JUVEN PACKET PO SCH (21:32)
[2019-07-07] MEDS: allopurinoL 100 MG TAB PO SCH (21:32)
[2019-07-07] MEDS: ATORVASTATIN 40 MG TAB PO SCH (21:32)
[2019-07-08] MEDS: CODEINE 30MG/APAP 300MG TAB PO PRN ×4 (00:17→23:26)
[2019-07-08] MEDS: NICOTINE 21 MG/PAT TD SCH ×2 (00:17→08:04)
[2019-07-08 04:09] LABS: RBC Red Blood Cell Count 3.82 M/uL (3.86-4.86)
[2019-07-08 04:43] LABS: Albumin 2.1 g/dL (3.4-5.0); Phosphorus 4.8 mg/dL (2.5-4.9)
[2019-07-08 04:45] LABS: Thyroid Stimulating Hormone 4.8 uIU/mL (0.360-3.740)
[2019-07-08] MEDS: carvediloL 12.5 MG TAB PO SCH ×2 (06:22→21:00)
[2019-07-08] MEDS: ASPIRIN 81 MG CHEWABLE TABLET PO SCH (08:05)
[2019-07-08] MEDS: GABAPENTIN 100 MG CAP PO SCH ×3 (08:05→21:00)
[2019-07-08] MEDS: SERTRALINE HCL 50 MG TAB PO SCH (08:05)
[2019-07-08] MEDS: CLOPIDOGREL 75 MG TABLET PO SCH (08:05)
[2019-07-08] MEDS: allopurinoL 100 MG TAB PO SCH ×2 (08:05→21:00)
[2019-07-08] MEDS: JUVEN PACKET PO SCH ×2 (08:07→21:02)
[2019-07-08] MEDS ORDERED: FLUTICASONE IH SCH (09:00)
[2019-07-08] MEDS ORDERED: SOD FERRIC GLUC COMPLX/SUCROSE 250 MG in NA CHLORIDE 0.9% 250 ML IV SCH (11:00)
[2019-07-08] MEDS: CALCITROL 0.25 MCG CAP PO SCH (11:16)
[2019-07-08] MEDS: HYDRALAZINE HCL 25 MG TABLET PO PRN (11:16)
[2019-07-08] MEDS: FUROSEMIDE 40 MG/4 ML VIAL IV SCH ×2 (11:17→20:59)
--- NOTE | 2019-07-08 11:17 | PN ---
Date of Progress Note: 07/08/2019 Subjective: The patient was admitted with respiratory distress secondary to over volume, questionabl e COVID-19 pneumonia. Patient was started on Plaquenil and a Z-Marv. Patient responding. Patient's blood pressure still elevated. Physical Examination: Vital Signs: Blood pressure 152/88, pulse of 62, afebrile. Patient on nasal cannula saturating abov e 94, used to be on BiPAP. Chest: Wheezing bilateral with crackle. Heart: S1, S2. Systolic murmur. Abdomen: Soft, nontender. Extremities: +1 edema but started having some wrinkles, venous stasis change. Neurologic: Alert. No focal. Laboratory Data: WBC 6.2, H and H 9.6/30.5, platelets 217. Sodium 130, potassium 4, bicarb 31, BUN 85, creatinine 3, GFR of 16, calcium 8.4, phosphorus 4.8. Iron saturation 12.5, ferritin 120. PTH 2 49. Vitamin D still pending. Current Medications: Aspirin, nicotine patch, Plavix, carvedilol 12.5, atorvastatin, gabapentin 100 t.i.d., Lasix 40 daily, allopurinol 100 daily, codeine. Assessment And Plan: 1.Acute kidney injury secondary to cardiorenal. Continue to recover. Still over volume. I am aggie g to go ahead and increase her Lasix to b.i.d. and we will follow up the patient. I do not see the n eed to initiate any renal replacement therapy for the time being. 2.Hypertension, not controlled. I will utilize blood pressure for more diuresis. Increase Lasix to 40 b.i.d., add amlodipine and nitroglycerin. We will monitor given the presence of congestive heart failure. We will add hydralazine p.r.n. and we will follow up. 3.Congestive heart failure with exacerbation. We will try to optimize fluid status with the diuresi s and as above, adding nitroglycerin, increasing Lasix. 4.Iron-deficiency anemia. We will start the patient on intravenous iron, especially with the presen ce of acute kidney injury and congestive heart failure exacerbation. 5.Hyponatremia, dilutional, secondary to congestive heart failure. We will continue diuresis. 6.Secondary hyperparathyroidism. Start the patient on calcitriol. 7.Pneumonia, possible coronavirus disease 2019. Lab still pending. Patient on Plaquenil and azithr omycin. We will adjust the dosage. GAMA Voice ID: [id number] Report ID: [id number]
[2019-07-08] MEDS ORDERED: FUROSEMIDE 40 MG/4 ML VIAL IV SCH (11:18)
[2019-07-08] MEDS: AMLODIPINE 10 MG TAB PO SCH (14:19)
[2019-07-08] MEDS ORDERED: ALBUTEROL 2.5 MG/3 ML NEB SOL ONE (19:51)
[2019-07-08] MEDS: ATORVASTATIN 40 MG TAB PO SCH (21:01)
[2019-07-09] MEDS: HYDRALAZINE HCL 25 MG TABLET PO PRN (00:52)
--- NOTE | 2019-07-09 01:37 | P.PN ---
Date of Service: 07/08/19 Subjective Patient is doing better. COVID-19 test was negative. Will get patient out of bed and ambulate. Check room air O2 sats at rest and exertion. Review of Systems 10-point ROS is otherwise unremarkable Physical Examination - Vital Signs Reviewed - Physical Exam General: Alert, In no apparent distress, Oriented x3 Respiratory: Diminished, Crackles/rales Cardiovascular: Regular rate/rhythm, Normal S1 S2, Systolic murmur Gastrointestinal: Normal bowel sounds, Soft and benign, Non-distended, No tend erness Neurological: Normal speech, Normal tone, Sensation intact, Cranial nerves 3-12 intact Assessment & Plan - Problems (Diagnosis) (1) Acute kidney injury Current Visit: Yes Status: Acute (2) Altered mental status Current Visit: Yes Status: Acute (3) Hypoxemia Current Visit: Yes Status: Acute (4) Toxic encephalopathy Current Visit: Yes Status: Acute (5) Acute on chronic diastolic CHF (congestive heart failure) Onset Date: 03/17/18 Current Visit: No Status: Chronic (6) CAD (coronary artery disease) Onset Date: 10/03/17 Current Visit: No Status: Chronic Qualifiers: Coronary Disease-Associated Artery/Lesion type: [place] artery [place] vs. transplanted heart: [place] heart Associated angina: with stable angina Qualified Code(s): I25.118 - Atherosclerotic heart disease of [place] coronary artery with other forms of angina pectoris (7) COPD (chronic obstructive pulmonary disease) Onset Date: 02/04/17 Current Visit: No Status: Chronic Qualifiers: COPD type: chronic bronchitis Chronic bronchitis type: mucopurulent Qualified Code(s): J41.1 - Mucopurulent chronic bronchitis (8) History of - depression Current Visit: No Status: Chronic (9) History of - hypertension Current Visit: No Status: Chronic (10) History of coronary artery bypass graft Current Visit: No Status: Chronic - Plan Continue with current plan of care as mentioned below 1. Continue with IV antibiotics 2. Cultures have been negative;COVID-19 negative 3. Chest x-ray with chronic lung disease changes but no acute pathology 4. Continue with nebs as needed 5. O2 per protocol 6. Continue with gentle hydration 7. Repeat labs including CBC and renal function in a.m. 8. GI and DVT prophylaxis Discharge Plan: Home Plan to discharge in: 24-48 hrs - Advance Directives Does patient have a Living Will: Yes Does patient have a Durable POA for Healthcare: Yes - Code Status/Comfort Care Code Status Assessed: Yes Code Status: Full Code Critical Care: No Time Spent Managing PTS Care (In Minutes): 30
[2019-07-09 05:57] LABS: Absolute Lymphocytes (CBC) 1.8 K/uL (0.7-4.9); Basophils % 0.1 % (0-1.3); Hematocrit 30.5 % (36.0-45.0); Lymphocytes % 19.7 % (15.3-44.8); MPV 7.9 fL (7.6-11.3); RBC Red Blood Cell Count 3.66 M/uL (3.86-4.86)
[2019-07-09 06:09] LABS: Phosphorus 2.7 mg/dL (2.5-4.9)
[2019-07-09 06:18] LABS: Albumin 2.1 g/dL (3.4-5.0); Phosphorus 2.6 mg/dL (2.5-4.9)
[2019-07-09] MEDS ORDERED: NITROGLYCERIN 0.4 MG/HR (10 MG) PATCH TD SCH (09:00)
--- NOTE | 2019-07-09 09:28 | P.PN ---
Date of Service: 07/09/19 Subjective COVID-19 test was negative. patient still with generalized weakness. We will get physical therapy to work with her. She may also need home oxygen. We will check her room air O2 sats at rest and exertion. Patient was a little upset because she was not able to order her own tray. She says she accidentally made a mistake when ordering and she was not allowed to order her tray any further. We will change this to allow her to order what she desires. Review of Systems 10-point ROS is otherwise unremarkable Physical Examination - Vital Signs Reviewed - Physical Exam General: Alert, In no apparent distress, Oriented x3 Respiratory: Diminished, Crackles/rales; minimal wheezing Cardiovascular: Regular rate/rhythm, Normal S1 S2, Systolic murmur Gastrointestinal: Normal bowel sounds, Soft and benign, Non-distended, No tenderness Neurological: Normal speech, Normal tone, Sensation intact, Cranial nerves 3-12 intact Assessment & Plan - Problems (Diagnosis) (1) Acute kidney injury Current Visit: Yes Status: Acute (2) Altered mental status Current Visit: Yes Status: Acute (3) Hypoxemia Current Visit: Yes Status: Acute (4) Toxic encephalopathy Current Visit: Yes Status: Acute (5) Acute on chronic diastolic CHF (congestive heart failure) Onset Date: 03/17/18 Current Visit: No Status: Chronic (6) CAD (coronary artery disease) Onset Date: 10/03/17 Current Visit: No Status: Chronic Qualifiers: Coronary Disease-Associated Artery/Lesion type: [place] artery [place] vs. transplanted heart: [place] heart Associated angina: with stable angina Qualified Code(s): I25.118 - Atherosclerotic heart disease of [place] coronary artery with other forms of angina pectoris (7) COPD (chronic obstructive pulmonary disease) Onset Date: 02/04/17 Current Visit: No Status: Chronic Qualifiers: COPD type: chronic bronchitis Chronic bronchitis type: mucopurulent Qualified Code(s): J41.1 - Mucopurulent chronic bronchitis (8) History of - depression Current Visit: No Status: Chronic (9) History of - hypertension Current Visit: No Status: Chronic (10) History of coronary artery bypass graft Current Visit: No Status: Chronic - Plan Continue with current plan of care as mentioned below 1. Continue with IV antibiotics; May be able to change to oral today. Clinically doing well. 2. Cultures have been negative;COVID-19 negative 3. Chest x-ray with chronic lung disease changes but no acute pathology 4. Continue with nebs as needed 5. O2 per protocol 6. Continue with gentle hydration; As long as patient continues to eat well then we will Hep-Lock IV 7. Repeat labs including CBC and renal function in a.m. 8. GI and DVT prophylaxis Discharge Plan: Home Plan to discharge in: 24-48 hrs - Advance Directives Does patient have a Living Will: Yes Does patient have a Durable POA for Healthcare: Yes - Code Status/Comfort Care Code Status Assessed: Yes Code Status: Full Code Critical Care: No Time Spent Managing PTS Care (In Minutes): 30
[2019-07-09] MEDS: AMLODIPINE 10 MG TAB PO SCH (09:44)
[2019-07-09] MEDS: SERTRALINE HCL 50 MG TAB PO SCH (09:45)
[2019-07-09] MEDS: CLOPIDOGREL 75 MG TABLET PO SCH (09:45)
[2019-07-09] MEDS: CODEINE 30MG/APAP 300MG TAB PO PRN ×2 (09:45→20:34)
[2019-07-09] MEDS: ASPIRIN 81 MG CHEWABLE TABLET PO SCH (09:45)
[2019-07-09] MEDS: allopurinoL 100 MG TAB PO SCH ×2 (09:46→20:35)
[2019-07-09] MEDS: carvediloL 12.5 MG TAB PO SCH ×2 (09:46→20:36)
[2019-07-09] MEDS: GABAPENTIN 100 MG CAP PO SCH ×3 (09:47→20:35)
[2019-07-09] MEDS: FUROSEMIDE 40 MG/4 ML VIAL IV SCH ×2 (09:47→20:37)
[2019-07-09] MEDS: NICOTINE 21 MG/PAT TD SCH (09:47)
[2019-07-09] MEDS: JUVEN PACKET PO SCH ×2 (09:55→20:38)
[2019-07-09] MEDS: HYDRALAZINE HCL 25 MG TABLET PO SCH ×2 (14:05→20:36)
--- NOTE | 2019-07-09 14:24 | PN ---
Subjective: Patient was admitted with shortness of breath, was suspected for COVID-19. Her results came back negative. Patient's creatinine is right now down to 2.3, which is at her baseline. Her so dium improved to 133. We will continue current management. We will continue IV iron. Also blood pr essure noted to be elevated. We will change hydralazine from p.r.n. to standard order. Physical Examination: Vital Signs: Temperature 97.2, pulse rate 62, blood pressure 164/82. General: Awake, alert, in mild distress. Neck: Supple. No elevated JVD. Heart: Regular rate and rhythm. Normal S1, S2. Chest: Decreased air entry at the bases. No rales or wheezes. Abdomen: Slightly distended, nontender. Extremities: +2 edema, bilateral legs wrapped. Laboratory Data: White count 9.3, hemoglobin 9.7, and platelet count 233. Sodium 133, potassium 4, bicarb 32, BUN 92, and creatinine 2.3. Medications: , albuterol, Lipitor, calcitriol, Coreg, Lasix, gabapentin, hydralazine p.r.n ., IV iron. Assessment And Plan: 1.Hypervolemic hyponatremia due to fluid overload. Her sodium is stable. Continue current dose of Lasix. 2.Acute kidney injury on chronic kidney disease. Her creatinine is back to baseline, but her BUN is elevated at . We will continue to monitor. 3.Anemia of chronic disease. Continue on IV iron. 4.Anasarca. We will continue on current dose of Lasix, daily weight, but consider to increase her L asix. We will carefully monitor her renal function test. 5.Hypertension. Blood pressure uncontrolled. I will change hydralazine to standard order. Total time spent 35 minutes. EDWIN/CELESTINE Voice ID: [id number] Report ID: [id number]
[2019-07-09] MEDS: ATORVASTATIN 40 MG TAB PO SCH (20:35)
[2019-07-10] MEDS: CODEINE 30MG/APAP 300MG TAB PO PRN ×2 (02:22→09:39)
[2019-07-10] MEDS ORDERED: CEFTRIAXONE/SWI 1gm 1 GM/10 ML SYR IV ONE (03:00)
[2019-07-10 07:50] LABS: Albumin 2.1 g/dL (3.4-5.0); Phosphorus 1.9 mg/dL (2.5-4.9); Potassium 3.8 mmol/L (3.5-5.1)
[2019-07-10] MEDS: NICOTINE 21 MG/PAT TD SCH (09:34)
[2019-07-10] MEDS: FUROSEMIDE 40 MG/4 ML VIAL IV SCH (09:35)
[2019-07-10] MEDS: allopurinoL 100 MG TAB PO SCH (09:35)
[2019-07-10] MEDS: HYDRALAZINE HCL 25 MG TABLET PO SCH ×2 (09:36→13:42)
[2019-07-10] MEDS: carvediloL 12.5 MG TAB PO SCH (09:36)
[2019-07-10] MEDS: GABAPENTIN 100 MG CAP PO SCH ×2 (09:36→13:42)
[2019-07-10] MEDS: CLOPIDOGREL 75 MG TABLET PO SCH (09:36)
[2019-07-10] MEDS: AMLODIPINE 10 MG TAB PO SCH (09:36)
[2019-07-10] MEDS: SERTRALINE HCL 50 MG TAB PO SCH (09:36)
[2019-07-10] MEDS: ASPIRIN 81 MG CHEWABLE TABLET PO SCH (09:37)
[2019-07-10] MEDS: JUVEN PACKET PO SCH (09:37)
[2019-07-10] MEDS: CALCITROL 0.25 MCG CAP PO SCH (11:07)
--- NOTE | 2019-07-10 12:14 | P.DS ---
Admission Date: 07/06/19 Discharge Date: 07/10/19 Disposition: DC HOME/HOME HEALTH CARE Discharge Condition: FAIR Reason for Admission: AMS; uremic encephalopathy; Dyspnea Consultations: Nephrology Procedures: None Brief History of Present Illness: 64-year-old woman with a history of advanced COPD, chronic respiratory failure was brought to the emergency department due to altered mental status and hypoxia on her usual home oxygen. Her urinalysis suggested the presence of UTI. Patient was requiring high-flow oxygen. She was placed on 100% non-rebreather mask. CT abdomen pelvis and chest reported reticular nodular opacity in the lung and ascites. Patient admitted for further management. Hospital Course: Patient admitted on placed on BiPAP therapy. She was also was treated with IV antibiotics for possible pneumonia. Her urine culture grew pansensitive E. coli. Her blood pressure was uncontrolled. Patient was seen and evaluated by nephrology. He was treated with IV Lasix for volume overload and acute on chronic diastolic heart failure. Patient is on multiple antihypertensives. Oral hydralazine was added and titrated to 100 mg t.i.d. on discharge. Her altered mental status was deemed secondary multiple factors including uremia and hypoxia. Her mental status improved to baseline with treatment. Her serum creatinine also improved. Overall patient clinical condition has improved to baseline. She has reached maximum hospital benefit, she has been ambulating and deemed stable for discharge. She is also discharged with Vantin to continue treatment for UTI. Vital Signs/Physical Exam: Temp Pulse Resp BP Pulse Ox 97.5 F 63 18 175/82 H 93 07/10/19 08:00 07/10/19 09:36 07/10/19 08:00 07/10/19 09:36 07/10/19 08:00 General: Alert, In no apparent distress, Oriented x3 HEENT: Mucous membr. moist/pink Neck: Supple, JVD not distended Respiratory: Clear to auscultation bilaterally, Normal air movement Cardiovascular: Edema (2+ bilateral lower extremity pitting edema, worse on the right.) Gastrointestinal: Normal bowel sounds, Soft and benign, No tenderness Laboratory Data at Discharge: WBC 9.3 K/uL (4.3-10.9) D 07/09/19 05:16 Hgb 9.7 g/dL (12.0-15.0) L 07/09/19 05:16 Hct 30.5 % (36.0-45.0) L 07/09/19 05:16 Plt Count 233 K/uL (152-406) 07/09/19 05:16 PT 14.7 SECONDS (9.5-12.5) H 07/06/19 18:25 INR 1.25 07/06/19 18:25 Sodium 133 mmol/L (136-145) L 07/10/19 05:35 Potassium 3.8 mmol/L (3.5-5.1) 07/10/19 05:35 BUN 85 mg/dL (7-18) H 07/10/19 05:35 Creatinine 1.81 mg/dL (0.55-1.3) H 07/10/19 05:35 Glucose 171 mg/dL (74-106) H 07/10/19 05:35 Phosphorus 1.9 mg/dL (2.5-4.9) L 07/10/19 05:35 Magnesium 2.0 mg/dL (1.8-2.4) 07/09/19 05:16 Total Bilirubin 0.5 mg/dL (0.2-1.0) 07/07/19 03:39 AST 17 U/L (15-37) 07/07/19 03:39 ALT 8 U/L (12-78) L 07/07/19 03:39 Alkaline Phosphatase 145 U/L (45-117) H 07/07/19 03:39 Home Medications: Allopurinol 100 mg PO BID #60 tablet 06/18/19 Aspirin 81 mg PO DAILY #90 tab.chew 06/18/19 Atorvastatin Calcium [Lipitor] 40 mg PO DAILY #30 tablet 06/18/19 Carvedilol [Coreg] 12.5 mg PO BID #60 tablet 06/18/19 Clopidogrel Bisulfate [Plavix*] 75 mg PO DAILY #60 tablet 06/18/19 Codeine/APAP [Tylenol #3*] 1 tab PO Q6HR PRN 06/18/19 Gabapentin 1 tab PO TID #90 capsule 06/18/19 Insulin Detemir [Levemir Flextouch] 10 units SQ DAILY #1 insuln.pen 06/18/19 Albuterol Sulfate [Albuterol Sulfate 0.083% Neb Soln] 1 vial IH Q4H PRN 07/07/19 Albuterol Sulfate [Proair Hfa] 2 puff IH Q4H PRN 07/07/19 Fluticasone [Flovent Hfa 110*] 2 puff IH DAILY 07/07/19 Isosorbide Mononitrate [Isosorbide Mononitrate ER] 1 tab PO DAILY 07/07/19 Sertraline [Zoloft*] 25 mg PO DAILY 07/07/19 buPROPion HCL [Bupropion HCl] 1 tab PO DAILY 07/07/19 Amlodipine [Norvasc*] 10 mg PO DAILY #30 tab 07/10/19 Calcitrol [Rocaltrol*] 0.25 mcg PO Q48H #15 cap 07/10/19 Cefpodoxime Proxetil 100 mg PO BID #8 tablet 07/10/19 Furosemide [Lasix] 80 mg PO BID #60 tablet 07/10/19 Hydralazine [Apresoline*] 50 mg PO TID #90 tab 07/10/19 New Medications: Hydralazine [Apresoline*] 50 mg PO TID #90 tab Cefpodoxime Proxetil 100 mg PO BID #8 tablet Furosemide [Lasix] 80 mg PO BID #60 tablet Amlodipine [Norvasc*] 10 mg PO DAILY #30 tab Calcitrol [Rocaltrol*] 0.25 mcg PO Q48H #15 cap Diet: ADA Activity: Fall precautions Followup: Sharri Fernando MD [ACTIVE - CAN ADMIT] - 1-2 Weeks
[2019-07-10 13:52] VITALS: BP 185/78; TEMP 97.4
[2019-07-10 14:36] VITALS: O2SAT 99
--- NOTE | 2019-07-10 16:44 | PN ---
Date of Progress Note: 07/10/2019 Subjective: Patient was admitted with acute kidney injury secondary to cardiorenal. Patient was diu resed aggressively. Kidney function has been improved back to baseline. Swelling has been subsided significantly. Physical Examination: Vital Signs: Blood pressure 178/82, pulse of 63. Patient had good urine output of 2 L. Patient jasmina ximena hollingsworth, the patient lost 4 pounds from admission. Chest: Crackles, left base. Heart: S1, S2. Regular. Systolic murmur. Abdomen: Soft, nontender. Extremity: Venous stasis, trace edema. Laboratory Data: WBC 9.3, H and H 9.7/30.5, platelets 233. Sodium 133, potassium 3.8, bicarb 33, BU N 85, creatinine 1.8, calcium 8.4, phosphorus 1.9, albumin 2.1. Current Medications: The patient on include aspirin, ceftriaxone, breathing treatment, IV iron and P lavix, amlodipine 10 mg, carvedilol 12.5 b.i.d., hydralazine 50 t.i.d., gabapentin, Lasix 40 b.i.d. Assessment And Plan: 1.Acute kidney injury, normal-size kidney, secondary to cardiorenal, recovered back to baseline. We will continue diuresis. I will switch her Lasix to p.o. 2.Iron-deficiency anemia. Continue IV iron. 3.Congestive heart failure with exacerbation, recover very well. I going to switch diuresis to p.o. 4.Gout. Continue allopurinol. 5.Hyponatremia, dilutional, recovered, resolved. 6.Secondary hyperparathyroidism. We will continue on calcitriol. 7.Hypomagnesemia status post supplement. 8.Patient was cleared from the renal standpoint for discharge planning, to follow up in the office i n 2 to 3 weeks. NATI/CELESTINE Voice ID: [id number] Report ID: [id number]
[2019-07-10] MEDS ORDERED: FUROSEMIDE 40 MG TABLET PO SCH (17:00)
[2019-07-10 20:07] LABS: Hepatitis C Virus RNA (PCR)log <1.18 log IU/mL
[2019-07-10] MEDS ORDERED: CEFTRIAXONE 500 MG in NA CHLORIDE 0.9% 25 ML IV SCH (21:00)
[2019-07-11 20:34] LABS: HBsAG Nonreactive (Nonreactive)
[2019-07-11 23:16] LABS: Vitamin D 1,25-Dihydroxy Total 10 pg/mL (18-72); Vitamin D,1,25-OH2, D2 <8 pg/mL
== END 2019-07-10 14:43 | disposition home health service (06) | DRG 682 ==
LOC: ER 17:19 → ERHOLD 21:12 → 4TH 23:24 → 2ND 07-08 19:49
PROVIDERS: ADMIT Hospitalist; ATTEND Internal Medicine
DX: N17.9 Acute kidney failure, unspecified (principal); J18.9 Pneumonia, unspecified organism; G92 Toxic encephalopathy; I50.33 Acute on chronic diastolic (congestive) heart failure; N30.00 Acute cystitis without hematuria; J44.0 Chronic obstructive pulmonary disease with (acute) lower respiratory infection; J96.11 Chronic respiratory failure with hypoxia; I13.0 Hypertensive heart and chronic kidney disease with heart failure and stage 1 through stage 4 chronic kidney disease, or unspecified chronic kidney disease; G93.1 Anoxic brain damage, not elsewhere classified; E87.1 Hypo-osmolality and hyponatremia; N18.4 Chronic kidney disease, stage 4 (severe); N25.81 Secondary hyperparathyroidism of renal origin; B96.20 Unspecified Escherichia coli [E. coli] as the cause of diseases classified elsewhere; Z79.82 Long term (current) use of aspirin; Z79.899 Other long term (current) drug therapy; Z79.02 Long term (current) use of antithrombotics/antiplatelets; Z79.891 Long term (current) use of opiate analgesic; Z79.4 Long term (current) use of insulin; N28.9 Disorder of kidney and ureter, unspecified; Z88.1 Allergy status to other antibiotic agents; Z88.5 Allergy status to narcotic agent; Z88.8 Allergy status to other drugs, medicaments and biological substances; Z91.09 Other allergy status, other than to drugs and biological substances; E11.22 Type 2 diabetes mellitus with diabetic chronic kidney disease; Z90.710 Acquired absence of both cervix and uterus; Z90.49 Acquired absence of other specified parts of digestive tract; Z89.412 Acquired absence of left great toe; Z95.1 Presence of aortocoronary bypass graft; Z87.891 Personal history of nicotine dependence; F32.9 Major depressive disorder, single episode, unspecified; Z95.820 Peripheral vascular angioplasty status with implants and grafts; E78.2 Mixed hyperlipidemia; W06.XXXA Fall from bed, initial encounter; Z20.828 Contact with and (suspected) exposure to other viral communicable diseases; E11.40 Type 2 diabetes mellitus with diabetic neuropathy, unspecified; E11.21 Type 2 diabetes mellitus with diabetic nephropathy; E11.319 Type 2 diabetes mellitus with unspecified diabetic retinopathy without macular edema; D63.1 Anemia in chronic kidney disease; M10.9 Gout, unspecified; I25.118 Atherosclerotic heart disease of native coronary artery with other forms of angina pectoris; E87.70 Fluid overload, unspecified; D63.8 Anemia in other chronic diseases classified elsewhere; D50.9 Iron deficiency anemia, unspecified
CPT/HCPCS: 36415; 70450; 71045; 71250; 72125; 80048; 80053; 80069; 80076; 81003; 82607; 82652; 82728; 82746; 82805; 82947; 83540; 83605; 83735; 83880; 83970; 84100; 84439; 84443; 84466; 84484; 85025; 85044; 85610; 86317; 86704; 86706; 87040; 87070; 87077; 87081; 87086; 87088; 87186; 87340; 87522; 87804; 94660; 96365; 96366; 96375; 97116; 97161; 97530; 99284; J0696; J1940; J2405; J2916; J2930; J3010; J3475; J7030; U0001

== ENCOUNTER 2019-09-27 13:40 | Inpatient (IN) | payer MEDICAID, OTHER ==
--- OUTSIDE RECORDS SUMMARY | 2019-09-27 15:06 | XMS REPORT | Clinical Summary ---
:1955 Author Organization Formerly [facility] Address [address] [place] [address] Care Team Providers Name Role Phone Landy Rendon Primary Care Provider [place] [facility] Upholsterer Unavailable Allergies Active Allergy Reactions Severity Noted Date Comments Amoxicillin-Pot Clavulanate Diarrhea High 04/21/2017 Basil Nausea Only High 04/21/2017 Morphine Anaphylaxis High 04/21/2017 Nitroglycerin Nausea And Vomiting High 04/21/2017 IV NITR O ONLY Trazodone Nausea And Vomiting High 05/12/2017 Vancomycin Analogues Nausea And Vomiting High 04/21/2017 Medications Medication Sig Dispensed Refills Start Date End Date Status aspirin 81 MG EC Take 81 mg by mouth 0 Active tablet daily. albuterol-ipratrop Inhale 2 puffs by 4 g 0 06/01/2017 Active ium (COMBIVENT mouth via inhaler RESPIMAT) 20-100 every 6 (six) hours. mcg/actuation Mist inhaler fluticasone Inhale 1 puff by 1 Inhaler 0 06/01/2017 Active (FLOVENT HFA) 110 mouth via inhaler 2 mcg/actuation (two) times daily. inhaler insulin detemir Inject 0.05 mLs (5 1 packet 0 06/01/2017 Active (LEVEMIR FLEXPEN) Units total) 100 unit/mL (3 mL) subcutaneously every InPn injection morning. pen needle, Use as directed to 100 each 0 06/01/2017 Active diabetic 29 gauge inject long and Ndle short acting insulin.. carvedilol (COREG) Take 1 tablet (12.5 60 tablet 0 07/07/2017 Active 12.5 MG tablet mg total) by mouth 2 (two) times daily. NIFEdipine (ADALAT Take 1 tablet (60 mg 30 tablet 0 07/07/2017 Active CC) 60 MG 24 hr total) by mouth tablet daily Blood pressure. hydrALAZINE Take 1 tablet (50 mg 120 tablet 0 07/07/2017 Active (APRESOLINE) 50 MG total) by mouth tablet every 8 (eight) hours Blood pressure. atorvastatin Take 1 tablet (40 mg 30 tablet 0 07/07/2017 Active (LIPITOR) 40 MG total) by mouth tablet daily. clopidogrel Take 1 tablet (75 mg 30 tablet 0 07/07/2017 Active (PLAVIX) 75 mg total) by mouth tablet daily. NICOTINE (NICODERM Place onto the skin. 0 Active CQ TD) ferrous sulfate Take 1 tablet (325 60 tablet 0 08/09/2017 Active 325 (65 FE) MG mg total) by mouth 2 tablet (two) times daily. melatonin 10 mg Take 10 mg by mouth 0 Active Tab every night as needed. isosorbide Take 30 mg by mouth 0 Active mononitrate daily. (IMDUR) 30 MG 24 hr tablet gabapentin Take 100 mg in AM 100 capsule 0 09/02/2017 Active (NEURONTIN) 100 MG and afternoon and capsule 300 mg at night. acetaminophen-code Take 1 tablet by 20 tablet 0 09/05/2017 Active ine (TYLENOL #3) mouth every 6 (six) 300-30 mg per hours as needed. Max tablet Daily Amount: 4 tablets Active Problems Problem Noted Date S/P femoral-popliteal bypass surgery 09/02/2017 Overview: Right on 08/05/17 Hyperlipidemia 08/07/2017 History of IBS 08/07/2017 Leukocytosis 08/07/2017 PVD (peripheral vascular disease) with claudication Acute on chronic diastolic congestive heart failure PVD (peripheral vascular disease) 05/27/2017 S/P CABG (coronary artery bypass graft) 05/26/2017 Normocytic anemia 05/26/2017 Severe protein-calorie malnutrition 05/23/2017 ARTURO (acute kidney injury) 05/21/2017 Chronic kidney disease, stage 3 05/21/2017 CAD (coronary artery disease) 05/20/2017 Overview: S/p CABG- PRITCHETT-LAD,SVG-PDA,ramus,OM3 on 05/20/[address] [place] artery of extremity with ulc eration 05/19/2017 Overview: RLE PVD Acute CHF 05/14/2017 COPD (chronic obstructive pulmonary disease) 8 Controlled type 2 diabetes mellitus with circulatory d isorder, with 05/14/2017 long-term current use of insulin Smoker 05/14/2017 Frequent PVCs 05/12/2017 Family History Medical History Relation Name Comments COPD Father Cancer Father Hypertension Father No Known Problem Mother Asthma Sister COPD Sister Relation Name Status Comments Father Mother Sister Social History Tobacco Use Types Packs/Day Years Used Date Former Smoker 1 34 Quit: 05/12/19 18 Smokeless Tobacco: Never Used Tobacco Cessation: Counseling Given: Yes Alcohol Use Drinks/Week oz/Week Comments No Sex Assigned at Date Recorded Not on file Job Start Date Occupation Industry Not on file Not on file Not on file Travel History Travel Start Travel End No recent travel history available. Last Filed Vital Signs Not on file Plan of Treatment Health Maintenance Due Date Last Done Comments BREAST CANCER SCREENING 1955 COLON CANCER SCREENING COLONOSCOPY 1955 PNEUMOCOCCAL VACCINE 2-64 YEARS AT RISK (1 1961 of 1 - PPSV23) DIABETIC FOOT EXAM 1965 CERVICAL CANCER SCREENING PAP ONLY (Age 1203/30/1976 21-65) HEMOGLOBIN A1C 08/16/2017 05/19/2017, 04/22/2017 INFLUENZA VACCINE (Season Ended) 2019 Implants Implanted Type Area Pile Driver Operator Device Shelf Model / Identifier Expiration Serial / Date Lot Device Clsr Angio-Seal Vip 8fr [id number] - [id number] Cardiovascular N/A: [facility] [employer] 01/28/2018 [id number] / Implanted: Qty: 1 on 05/12/2017 by Sandra Gaytan MD [employer] MED:CARDIAC / SURG [id number] Grft Eptfe-Heparin Rng [id number] - [id number] Graft/P atch Right: SUHAS MATHEW & 04/09/2021 [id number] / Implanted: Qty: 1 on 08/05/2017 by Mariela Ramirez MD [employer] ASSC:MED PRDT [id number] / N/A Results Not on fileafter 09/26/2018 Insurance Payer Benefit Plan / Group Subscriber ID Type Phone A ddress [place]ID [place] xxxxxxxxx Advance Directives For more information, please contact:[place] [id number] [place], [place] [phone] Code Status Date Activated Date Inactivated Comments [...]
--- OUTSIDE RECORDS SUMMARY | 2019-09-27 15:18 | XMS REPORT | Continuity of Care Document ---
:1955 Author Organization [facility] t Address [address] [place] [address] Care Team Providers Name Role Phone Landy Rendon Primary Care Physician PRABHJOT DREW Attending Clinician Unavailable OLAYINKA Attending Clinician Unavailable LISA VERDUZCO Attending Clinician Unavailable MAGGIE MCCONNELL Attending Clinician Unavailable Mary FIERRO Attending Clinician Unavailable MABLE BANERJEE Admitting Clinician Unavailable LISA VERDUZCO Admitting Clinician Unavailable MAGGIE MCCONNELL Admitting Clinician Unavailable Mary FIERRO Admitting Clinician Unavailable Problems Condition Condition Condition Status Onset Resolution Last Treating Co mments Source Name Details Category Date Date Treatment Clinician Date S/P S/P Disease Active Overview: [facility] femoral-po femoral-po 6-05 Right on [facility] - pliteal pliteal 00:00: 08/05/17 Medical bypass bypass 00 Center surgery surgery Hyperlipid Hyperlipid Disease Active [facility] emia emia - [facility] - 00:00: Medical 00 Center History of History of Disease Active [facility] IBS IBS 5- [facility] - 00:00: Medical 00 Center Leukocytos Leukocytos Disease Active [facility] is is - [facility] - 00:00: Medical 00 Center PVD PVD Disease Active [facility] (periphera (periphera 08-05 Janna kes - l vascular l vascular 00:00: Me dical disease) disease) 00 Center with with claudicati claudshaunnati on on Acute on Acute on Disease Active [facility] chronic chronic 3-13 [facility] - diastolic diastolic 00:00: Medi marilin congestive congestive 00 Ce nter heart heart failure failure PVD PVD Disease Active [facility] (periphera (periphera 2-27 Janna kes - l vascular l vascular 00:00: Me dical disease) disease) 00 Center S/P CABG S/P CABG Disease Active [facility] (coronary (coronary 2-26 [facility] - artery artery 00:00: Medical bypass bypass 00 Center graft) graft) Normocytic Normocytic Disease Active [facility] anemia anemia 2-26 [facility] - 00:00: Medical 00 Center 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 2-23 Janna kes - alicia alicia 00:00: Medical malnutriti malnutriti 00 Ce nter on on TRACY (acute TRACY (acute Disease Active [facility] kidney kidney 2-21 [facility] - injury) injury) 00:00: Medical 00 Center Chronic Chronic Disease Active [facility] kidney kidney 2-21 [facility] - disease, disease, 00:00: Medica l stage 3 stage 3 00 Center CAD CAD Disease Active Overview: [facility] (coronary (coronary 2-20 S/p CABG- L ukes - artery artery 00:00: PRITCHETT-LAD, Medical disease) disease) 00 SVG-PDA,r Matthew ter amus,OM3 on 05/20/17 Atheroscle Atheroscle Disease Active Overview : [facility] rosis of rosis of 2-19 RLE PVD [facility] [place] 00:[place]: Medical artery of artery of 00 Cent er extremity extremity with with ulceration ulceration Acute CHF Acute CHF Disease Active [facility] 2-14 [facility] - 00[facility]00: Medical 00 Center COPD COPD Disease Active [facility] (chronic (chronic 2-14 [facility] - obstructiv obstructiv 00:00: Me dical e e 00 Center pulmonary pulmonary disease) disease) Controlled Controlled Disease Active [facility] type 2 type 2 2-14 [facility] - diabetes diabetes 00:00: Medica l mellitus mellitus 00 Center 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, disorder, with with long-term long-term current current use of use of insulin insulin Smoker Smoker Disease Active [facility] 2-14 [facility] - 00:00: Medical 00 [place] Frequent Frequent Disease Active [facility] PVCs PVCs 2-12 [facility] - 00:00: Medical 00 [place] Essential Essential Problem Active [facility] (primary) (primary) Luke s - hypertensi hypertensi Me moria on on l [facility] ent Clinics Depression Depression Problem Active [facility] , , [facility] - unspecifie unspecifie Me moria d d l depression depression Ou tpati type type ent Clinics History of History of Problem Active [facility] cancer cancer [facility] - Memoria l [facility] ent Clinics Primary Primary Problem Active [facility] insomnia insomnia [facility] - Memoria l [facility] ent Clinics Chronic Chronic Problem Active [facility] acquired acquired [facility] - lymphedema lymphedema Me moria [facility] ent Clinics Chronic Chronic Diagnosis Active [facility] kidney kidney [facility] - disease, disease, Memori a stage 4 stage 4 l (severe) (severe) Outpat i ent Clinics 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[facility] polyneurop polyneurop Janna kes - athy athy Memoria associated associated l with type with type Outp ati 2 diabetes 2 diabetes en t mellitus mellitus Clinic s Chronic Chronic Diagnosis Active [facility] diastolic diastolic Luke s - congestive congestive Me [facility] heart heart l failure, failure, Outpat i NYHA class NYHA class en t 2 2 Clinics Chronic Chronic Problem Active [facility] obstructiv obstructiv Janna kes - e e Memoria pulmonary pulmonary l disease, disease, Outpat i unspecifie unspecifie en t d COPD d COPD Clinics type type [place] [employer] Problem Active [facility] current current [facility] - use of use of Memoria insulin insulin l [facility] ent Clinics History of History of Problem Active [facility] stroke stroke [facility] - Memoria l [facility] ent Clinics 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[address] [facility] diabetes diabetes [facility] - mellitus mellitus Memori a with with l hyperglyce hyperglyce Ou tpati cr [facility] ent Clinics 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[address] [facility] diabetes diabetes [facility] - mellitus mellitus Memori a with with l diabetic diabetic Outpat i chronic chronic ent kidney kidney Clinics disease disease Kidney Kidney Problem Active [facility] disease disease [facility] - Memoria l [facility] ent Clinics Allergies, Adverse Reactions, Alerts Allergy Allergy Status Severity Reaction(s) Onset Inactive Treating Comm ents Source Name Type Date Date Clinician [place] Drug Active Nausea And [address] [facility] [address] e Allergy Vomiting 2-12 [facility] - 00:00: Medical 00 Center Amoxicil Propensi Active Diarrhea [facility] kenzie-Pot ty to 04-21 [facility] - Clavulan adverse 00:00: Medical ate reaction 00 Center s Basil Propensi Active Nausea Only [facility] ty to 04-21 [facility] - adverse 00:00: Medical reaction 00 Center s Morphine Propensi Active Anaphylaxis [facility] ty to 04-21 [facility] - adverse 00:00: Medical reaction 00 Center s Nitrogly Propensi Active Nausea And 2017-[address] [facility] cerin ty to Vomiting 04-21 ONLY [facility] - adverse 00:00: Medical reaction 00 Center s Vancomyc Propensi Active Nausea And [facility] in ty to Vomiting 04-21 [facility] - Analogue adverse 00:00: Medical s reaction 00 [place] s Vancomyc Adverse Active vomiting [facility] in HCl Reaction [facility] - Memoria l [facility] ent Clinics Nitrogly Adverse Active vomiting [facility] cerin Reaction [facility] - Memoria l [facility] ent [facility] Morphine Adverse Active headache, [facility] Sulfate Reaction breathing Luke s - Memoria l [facility] Clindamy Adverse Active vomiting [facility] riley HCl Reaction [facility] - Memoria l [facility] Family History Family Member Diagnosis Comments Start Date Stop Date Source Natural father COPD [facility] Natural father Cancer [facility] Natural father Hypertension [facility] Natural mother No Known Problem [facility] Natural sister Asthma [facility] Natural sister COPD [facility] Social History Social Habit Start Date Stop Date Quantity Comments Source Sex Assigned At [facility] Cigarettes smoked 2017-09-02 2017-09-02 [facility] - current (pack per 00:00:00 00:00:00 Medical Center day) - Reported Cigarette 2017-09-02 2017-09-02 [facility] - pack-years 00:00:00 00:00:00 [facility] History of tobacco 2017-05-12 Current smoker [facility] - use 00:00:00 [facility] Smoking Status Start Date Stop Date Source Former smoker 2017-09-02 00:00:00 2017-09-02 00:00:[address] [facility] [address] [facility] Medications Ordered Filled Start Stop Current Ordering Indication Dosage Frequency Signature Comments Components Source Medication Medication Date Date Medication? Clinician (SIG) Name Name acetaminoph Yes 1{tbl} Take [address] en-codeine 6-08 tablet by Luke s - (TYLENOL 00:00: mouth Medical #3) 300-30 00 every 6 Center mg per (six) tablet hours as needed. Max Daily Amount: 4 tablets melatonin Yes 10mg Take [address] 10 mg Tab 6-05 by mouth [facility] - 11:23: every Medical 40 night as Center needed. isosorbide 2017- Yes 30mg QD Take [address] mononitrate 6-05 by mouth Luke s - (IMDUR) 30 11:23: daily. Medic al MG 24 hr 40 Center tablet gabapentin Yes Take [address] (NEURONTIN) 6-05 mg in AM Luke s - 100 MG 00:00: and Medical capsule 00 afternoon Center and 300 mg at night. ferrous 2017- Yes 325mg Q.5D Take [address] sulfate 325 5-12 tablet [facility] - (65 FE) MG 00:00: (325 mg Medi marilin tablet 00 total) by Center mouth 2 (two) times daily. NICOTINE Yes Place onto [facility] (NICODERM 4-29 the skin. [facility]ukes - CQ TD) 22:51: Medical 06 Center carvedilol 2017-0 Yes 12.5mg Q.5D Take [address] (COREG) 4-09 tablet [facility] - 12.5 MG 00:00: (12.5 mg Medica l tablet 00 total) by Center mouth 2 (two) times daily. NIFEdipine 2017- Yes 60mg QD Take 1 [facility] (ADALAT CC) 4-09 tablet (60 Janna kes - 60 MG 24 hr 00:00: mg total) M edical tablet 00 by mouth Center daily Blood pressure. hydrALAZINE 2017-0 Yes 50mg Take [address] [facility] [address] (APRESOLINE 4-09 tablet (50 Janna kes - ) 50 MG 00:00: mg total) Medic al tablet 00 by mouth Center every 8 (eight) hours Blood pressure. atorvastati 2017-0 Yes 40mg QD Take [address] [facility] [facility] n (LIPITOR) 4-09 tablet (40 Janna kes - 40 MG 00:00: mg total) Medical tablet 00 by mouth Center daily. clopidogrel Yes 75mg QD Take [address] [facility] (PLAVIX) 75 4-09 tablet (75 Janan kes - mg tablet 00:00: mg total) Med ical 00 by mouth Center daily. albuterol-i Yes 2{puff} Inhale [address] pratropium 3-04 puffs by [facility] - (COMBIVENT 00:00: mouth via Me dical RESPIMAT) 00 inhaler Center 20-100 every 6 mcg/actuati (six) on Mist hours. inhaler fluticasone Yes 1{puff} Q.5D Inhale [address] (FLOVENT 3-04 puff by [facility]ukes - HFA) 110 00:00: mouth via Medi marilin mcg/actuati [address] on inhaler (two) times daily. insulin Yes 5U QD Inject [facility] detemir 3-[address] [facility] (LEVEMIR 00:00: (5 Units Medic al FLEXPEN) 00 total) [place] 100 unit/mL subcutaneo (3 mL) InPn usly every injection morning. pen needle, Yes Use as [facility] diabetic 29 3-04 directed Luke s - gauge Ndle 00:00: to inject Me dical 00 long and Center short acting insulin.. aspirin 81 Yes 81mg QD Take [address] MG EC 1-22 by mouth [facility]ukes - tablet 20:09: daily. [facility] 35 [place] Trazodone Trazodone Yes Franki TAKE [address] HCl HCl Jas TABLET BY [facility]ukes - MOUTH Memoria EVERYDAY l AT BEDTIME [facility] Clinics Isosorbide Isosorbide Yes Franki TAKE [address] [facility] Mononitrate Mononitrate Jas TABLET BY [facility]ukes - ER ER MOUTH Memoria EVERY DAY l [facility] Clinics NIFEdipine NIFEdipine Yes Franki TAKE [address] [facility] ER ER Jas TABLET BY [facility]ukes - MOUTH Memoria EVERY DAY l [facility] ent Clinics BuPROPion BuPROPion Yes Franki TAKE [address] HCl HCl Jas TABLET BY [facility]ukes - MOUTH Memoria EVERY DAY l [facility] Clinics Acetaminoph Acetaminoph Yes Franki (Schedule [facility] en-Codeine en-Codeine Jas III Drug) Shannon - #3 #3 TAKE 1 Memoria TABLET BY l MOUTH Outpati EVERY 6 ent HOURS Clinics NEEDED FOR PAIN Carvedilol Carvedilol Yes Franki TAKE [address] [facility] Jas TABLET BY Lukes - MOUTH Memoria TWICE A l DAY Outpati ent Clinics Advair Advair Yes Franki INHALE 1 [facility] Diskus Diskus Jas DOSE BY [facility] - MOUTH Memoria TWICE l DAILY. Outpati RINSE ent MOUTH Clinics AFTER USE Atorvastati Atorvastati Yes Franki TAKE [address] [facility] n Calcium n Calcium Jas TABLET BY [facility]ukes - MOUTH Memoria EVERY DAY l Outpati ent Clinics Allopurinol Allopurinol Yes Franki TAKE [address] [facility] Jas TABLET BY Lukes - MOUTH Memoria TWICE A l DAY Outpati ent Clinics Gabapentin Gabapentin Yes Franki TAKE [address] [facility] Jas CAPSULE BY Lukes - MOUTH Memoria THREE l TIMES A Outpati DAY ent Clinics Clopidogrel Clopidogrel Yes Franki TAKE [address] [facility] Bisulfate Bisulfate Jas TABLET BY [facility]ukes - MOUTH Memoria EVERY DAY l Outpati ent Clinics Vitamin D Vitamin D Yes Franki TAKE ONE [facility] (Ergocalcif (Ergocalcif Jas CAPSULE BY Lukes - berta) berta) MOUTH ONE Memoria TIME PER l WEEK Outpati ent Clinics Furosemide Furosemide Yes Franki TAKE BY [facility] Jas MOUTH 1 [facility]ukes - TABLET Memoria NEEDED FOR l SHORTNESS Outpati OF BREATH ent MAY TAKE Clinics NEEDED IF WITH INCREASE EDEMA ProAir HFA ProAir HFA Yes Franki INHALE [address] [facility] Jas PUFFS 3 Lukes - TIMES A Memoria DAY l NEEDED FOR Outpati SHORTNESS ent OF BREATH Clinics Levemir Levemir Yes Franki INJECT [address] FlexTouch FlexTouch Jas UNITS Lay es - BELOW THE Memoria SKIN IN l THE Outpati MORNING ent Clinics HydrALAZINE HydrALAZINE Yes Franki TAKE [address] [facility] [facility] HCl HCl Jas TABLET BY [facility]ukes - MOUTH Memoria THREE l TIMES A Outpati DAY ent Clinics Procedures This patient has no known procedures. Plan of Care Planned Activity Planned Date Details Comments Source Future Scheduled 2019-11-[address] [facility] - Test 00:00:00 (Season Ended) [code = Medic az Center INFLUENZA VACCINE (Season Ended)] Future Scheduled 2017-08-16 HEMOGLOBIN A1C [code = [facility] - Test 00:00:00 HEMOGLOBIN A1C] Medical Cent er Future Scheduled [address] [facility] - Test 00:00:00 [facility] cervix (procedure) [code = 916375512] Future Scheduled [address] - Test 00:00:00 examination Medical Center (regime/therapy) [code = 031929673] Future Scheduled [address] [facility] - Test 00:00:00 2-64 YEARS AT RISK (1 Medica l Center of 1 - PPSV23) [code = PNEUMOCOCCAL VACCINE 2-64 YEARS AT RISK (1 of 1 - PPSV23)] Future Scheduled [address] [facility] - Test 00:00:00 SCREENING [code = Medical nt BREAST CANCER SCREENING] Future Scheduled 1955 COLON CANCER SCREENING [facility] - Test 00:00:00 COLONOSCOPY [code = [facility] COLON CANCER SCREENING COLONOSCOPY] Encounters Start End Encounter Admission Attending Care Care Encounter Source Date/Time Date/Time Type Type Clinicians Facility Department ID 2018-11-17 2018-11-17 Outpatient Alison Rosast [id number] 11:30:00 11:30:00 [facility] Medicine Outpati ent Clinics 2018-10-06 2018-10-06 Outpatient Alison Rosast [id number] 16:14:00 16:14:00 [facility] Medicine Outpati ent Clinics 2018-09-28 2018-09-28 Outpatient Alison [place] [id number] 10:30:00 10:30:00 [place] Medicine Medicine [facility] Clinics Results Test Description Test Time Test Comments Results Result Comments Source POCT-GLUCOSE METER 2017-09-05 17:13:00 Test Item Value Reference Range Interpretation Comme nts POC-GLUCOSE METER (ROBERT) (test 220 mg/dL 70-110 H TESTED AT [address] code = 1538) [facility] 7703 0 BASIC METABOLIC [id number] 15:47:00 Test Item Value Reference Range Interpretation Comments SODIUM (BEAKER) 135 meq/L 136-145 L (test code = 381) POTASSIUM (BEAKER) 4.8 meq/L 3.5-5.1 (test code = 379) CHLORIDE (BEAKER) 102 meq/L 98-107 (test code = 382) CO2 (BEAKER) (test 25 meq/L 22-29 code = 355) BLOOD UREA NITROGEN 51 mg/dL 7-21 H (BEAKER) (test code = 354) CREATININE (BEAKER) 1.99 mg/dL 0.57-1.25 H (test code = 358) GLUCOSE RANDOM 201 mg/dL 70-105 H (BEAKER) (test code = 652) CALCIUM (BEAKER) 8.8 mg/dL 8.4-10.2 (test code = 697) EGFR (BEAKER) (test 25 mL/min/1.73 ESTIMA HINA GFR IS code = 1092) sq m NOT ACCURATE CREATININE CLEARANCE IN PREDICTING GLOMERULAR FILTRATION RATE . ESTIMATED GFR I S NOT APPLICABLE FOR DIALYSIS PATIEN TS. POCT-GLUCOSE [id number] 11:30:00 Test Item Value Reference Range Interpretation Comments POC-GLUCOSE METER 268 mg/dL 70-110 H TESTED AT [place] [address] [facility] (test code = [facility] Dylon [facility] 1538) [id number] POCT-GLUCOSE [id number] 07:08:00 Test Item Value Reference Range Interpretation Comments POC-GLUCOSE METER 208 mg/dL 70-110 H TESTED AT [place] [address] ([facility] (test code = [facility] Dylon [facility] 1538) [id number] CALCIUM, [id number] 06:47:00 Test Item Value Reference Range Interpretation Comments CALCIUM IONIZED (BEAKER) (test 1.11 mmol/L 1.12-1.27 L code = 698) PH, BLOOD (BEAKER) (test code = 7.40 1810) BASIC METABOLIC [id number] 06:40:00 Test Item Value Reference Range Interpretation Comments SODIUM (BEAKER) 134 meq/L 136-145 L (test code = 381) POTASSIUM (BEAKER) 4.9 meq/L 3.5-5.1 (test code = 379) CHLORIDE (BEAKER) 103 meq/L 98-107 (test code = 382) CO2 (BEAKER) (test 24 meq/L 22-29 code = 355) BLOOD UREA NITROGEN 53 mg/dL 7-21 H (BEAKER) (test code = 354) CREATININE (BEAKER) 2.02 mg/dL 0.57-1.25 H (test code = 358) GLUCOSE RANDOM 186 mg/dL 70-105 H (BEAKER) (test code = 652) CALCIUM (BEAKER) 9.1 mg/dL 8.4-10.2 (test code = 697) EGFR (BEAKER) (test 25 mL/min/1.73 ESTIMA HINA GFR IS code = 1092) sq m NOT ACCURATE CREATININE CLEARANCE IN PREDICTING GLOMERULAR FILTRATION RATE . ESTIMATED GFR I S NOT APPLICABLE FOR DIALYSIS PATIEN TS. [id number] 06:33:00 Test Item Value Reference Range Interpretation Comments PHOSPHORUS (BEAKER) (test code = 5.1 mg/dL 2.3-4.7 H 604) [id number] 06:33:00 Test Item Value Reference Range Interpretation Comments MAGNESIUM (BEAKER) (test code = 2.0 mg/dL 1.6-2.6 627) LACTIC ACID, VENOUS, WHOLE [id number] 06:02:00 Test Item Value Reference Range Interpretation Comments LACTATE BLOOD VENOUS (2) (BEAKER) 0.8 mmol/L 0.5-2.2 (test code = 2872) Effective 08/02/2015: Units/Reference Range ChangeNew: 0.5-2.2 mmol/L Previous: 5-20 mg/dLCBC W/PLT COUNT & AUTO [id number] 05:54:00 Test Item Value Reference Range Interpretation Comments WHITE BLOOD CELL COUNT (BEAKER) 7.1 K/ L 3.5-10.5 (test code = 775) RED BLOOD CELL COUNT (BEAKER) 3.68 M/ L 3.93-5.22 L (test code = 761) HEMOGLOBIN (BEAKER) (test code = 9.0 GM/DL 11.2-15.7 L 410) HEMATOCRIT (BEAKER) (test code = 29.6 % 34.1-44.9 L 411) MEAN CORPUSCULAR VOLUME (BEAKER) 80.4 fL 79.4-94.8 (test code = 753) MEAN CORPUSCULAR HEMOGLOBIN 24.5 pg 25.6-32.2 L (BEAKER) (test code = 751) MEAN CORPUSCULAR HEMOGLOBIN CONC 30.4 GM/DL 32.2-35.5 L (BEAKER) (test code = 752) RED CELL DISTRIBUTION WIDTH 16.5 % 11.7-14.4 H (BEAKER) (test code = 412) PLATELET COUNT (BEAKER) (test 215 K/CU MM 150-450 code = 756) MEAN PLATELET VOLUME (BEAKER) 9.5 fL 9.4-12.3 (test code = 754) NUCLEATED RED BLOOD CELLS 0 /100 WBC 0-0 (BEAKER) (test code = 413) NEUTROPHILS RELATIVE PERCENT 42 % (BEAKER) (test code = 429) LYMPHOCYTES RELATIVE PERCENT 46 % (BEAKER) (test code = 430) MONOCYTES RELATIVE PERCENT 6 % (BEAKER) (test code = 431) EOSINOPHILS RELATIVE PERCENT 5 % (BEAKER) (test code = 432) BASOPHILS RELATIVE PERCENT 1 % (BEAKER) (test code = 437) NEUTROPHILS ABSOLUTE COUNT 2.96 K/ L 1.56-6.13 (BEAKER) (test code = 670) LYMPHOCYTES ABSOLUTE COUNT 3.27 K/ L 1.18-3.74 (BEAKER) (test code = 414) MONOCYTES ABSOLUTE COUNT (BEAKER) 0.41 K/ L 0.24-0.36 H (test code = 415) EOSINOPHILS ABSOLUTE COUNT 0.34 K/ L 0.04-0.36 (BEAKER) (test code = 416) BASOPHILS ABSOLUTE COUNT (BEAKER) 0.08 K/ L 0.01-0.08 (test code = 417) IMMATURE GRANULOCYTES-RELATIVE 0 % 0-1 PERCENT (BEAKER) (test code = 2801) POCT-GLUCOSE [id number] 21:30:00 Test Item Value Reference Range Interpretation Comments POC-GLUCOSE METER 248 mg/dL 70-110 H TESTED AT [facility] 6720 (BEAKER) (test code = JULIANO REYEZ 1538) [address] RAD, [id number] 21:22:00Reason for exam:->fall, tailbone painFINAL REPORT RAD, [...] acute fracture persists. Signed: Juan Francisco Talbot Verified Date/Time: 09/04/2017 21:22:03 Reading Location: [address] Reading Room POCT-GLUCOSE [id number] 17:37:00 Test Item Value Reference Range Interpretation Comments POC-GLUCOSE METER 222 mg/dL 70-110 H TESTED AT [place] [address] ([facility]) (test code = [facility] Dylon [facility] 1538) [id number] POCT-GLUCOSE [id number] 13:55:00 Test Item Value Reference Range Interpretation Comments POC-GLUCOSE METER 194 mg/dL 70-110 H TESTED AT [place] [address] ([facility]) (test code = [facility] Dylon [facility] 1538) [id number] POCT-GLUCOSE [id number] 12:34:00 Test Item Value Reference Range Interpretation Comments POC-GLUCOSE METER 229 mg/dL 70-110 H TESTED AT [place] [address] ([facility]) (test code = [facility] Dylon [facility] 1538) [id number] POCT-GLUCOSE [id number] 08:00:00 Test Item Value Reference Range Interpretation Comments POC-GLUCOSE METER 159 mg/dL 70-110 H TESTED AT [place] [address] ([facility]) (test code = [facility] 1538) [id number] CALCIUM, [id number] 06:00:00 Test Item Value Reference Range Interpretation Comments CALCIUM IONIZED ([facility]) (test 1.05 mmol/L 1.12-1.27 L code = 698) PH, BLOOD (BEAKER) (test code = 7.45 1810) [id number] 05:59:00 Test Item Value Reference Range Interpretation Comments PHOSPHORUS (BEAKER) (test code = 4.8 mg/dL 2.3-4.7 H 604) [id number] 05:59:00 Test Item Value Reference Range Interpretation Comments MAGNESIUM (BEAKER) (test code = 2.0 mg/dL 1.6-2.6 627) BASIC METABOLIC [id number] 05:59:00 Test Item Value Reference Range Interpretation Comments SODIUM (BEAKER) 134 meq/L 136-145 L (test code = 381) POTASSIUM (BEAKER) 4.4 meq/L 3.5-5.1 (test code = 379) CHLORIDE (BEAKER) 103 meq/L 98-107 (test code = 382) CO2 (BEAKER) (test 23 meq/L 22-29 code = 355) BLOOD UREA NITROGEN 49 mg/dL 7-21 H (BEAKER) (test code = 354) CREATININE (BEAKER) 1.69 mg/dL 0.57-1.25 H (test code = 358) GLUCOSE RANDOM 138 mg/dL 70-105 H (BEAKER) (test code = 652) CALCIUM (BEAKER) 8.7 mg/dL 8.4-10.2 (test code = 697) EGFR (BEAKER) (test 31 mL/min/1.73 ESTIMA HINA GFR IS code = 1092) sq m NOT ACCURATE CREATININE CLEARANCE IN PREDICTING GLOMERULAR FILTRATION RATE . ESTIMATED GFR I S NOT APPLICABLE FOR DIALYSIS PATIEN TS. CREATINE KINASE (CK)2017-09-04 05:59:00 Test Item Value Reference Range Interpretation Comments CREATINE KINASE TOTAL (BEAKER) (test 45 U/L 29-200 code = 380) CBC W/PLT COUNT & AUTO [id number] 05:32:00 Test Item Value Reference Range Interpretation Comments WHITE BLOOD CELL COUNT (BEAKER) 6.1 K/ L 3.5-10.5 (test code = 775) RED BLOOD CELL COUNT (BEAKER) 3.69 M/ L 3.93-5.22 L (test code = 761) HEMOGLOBIN (BEAKER) (test code = 8.8 GM/DL 11.2-15.7 L 410) HEMATOCRIT (BEAKER) (test code = 29.3 % 34.1-44.9 L 411) MEAN CORPUSCULAR VOLUME (BEAKER) 79.4 fL 79.4-94.8 (test code = 753) MEAN CORPUSCULAR HEMOGLOBIN 23.8 pg 25.6-32.2 L (BEAKER) (test code = 751) MEAN CORPUSCULAR HEMOGLOBIN CONC 30.0 GM/DL 32.2-35.5 L (BEAKER) (test code = 752) RED CELL DISTRIBUTION WIDTH 16.3 % 11.7-14.4 H (BEAKER) (test code = 412) PLATELET COUNT (BEAKER) (test 219 K/CU MM 150-450 code = 756) MEAN PLATELET VOLUME (BEAKER) 9.4 fL 9.4-12.3 (test code = 754) NUCLEATED RED BLOOD CELLS 0 /100 WBC 0-0 (BEAKER) (test code = 413) NEUTROPHILS RELATIVE PERCENT 44 % (BEAKER) (test code = 429) LYMPHOCYTES RELATIVE PERCENT 43 % (BEAKER) (test code = 430) MONOCYTES RELATIVE PERCENT 6 % (BEAKER) (test code = 431) EOSINOPHILS RELATIVE PERCENT 6 % (BEAKER) (test code = 432) BASOPHILS RELATIVE PERCENT 1 % (BEAKER) (test code = 437) NEUTROPHILS ABSOLUTE COUNT 2.67 K/ L 1.56-6.13 (BEAKER) (test code = 670) LYMPHOCYTES ABSOLUTE COUNT 2.66 K/ L 1.18-3.74 (BEAKER) (test code = 414) MONOCYTES ABSOLUTE COUNT (BEAKER) 0.38 K/ L 0.24-0.36 H (test code = 415) EOSINOPHILS ABSOLUTE COUNT 0.37 K/ L 0.04-0.36 H (BEAKER) (test code = 416) BASOPHILS ABSOLUTE COUNT (BEAKER) 0.05 K/ L 0.01-0.08 (test code = 417) IMMATURE GRANULOCYTES-RELATIVE 0 % 0-1 PERCENT (BEAKER) (test code = 2801) POCT-GLUCOSE [id number] 20:36:00 Test Item Value Reference Range Interpretation Comments POC-GLUCOSE METER 211 mg/dL 70-110 H TESTED AT [facility] 6720 (BEAKER) (test code = [place] 1538) [address] CREATININE, RANDOM [id number] 19:55:00 Test Item Value Reference Range Interpretation Comments CREATININE URINE (BEAKER) (test 16.1 mg/dL code = 375) Reference Range: No NormalsPROTEIN, RANDOM [id number] 19:55:00 Test Item Value Reference Range Interpretation Comments PROTEIN, URINE (BEAKER) (test code 102 mg/dL 0-14 H = 1569) POCT-GLUCOSE [id number] 18:04:00 Test Item Value Reference Range Interpretation Comments POC-GLUCOSE METER 177 mg/dL 70-110 H TESTED AT [place] [address] (BEAKER) (test code = [facility] 1538) [address] POCT-GLUCOSE [id number] 11:59:00 Test Item Value Reference Range Interpretation Comments POC-GLUCOSE METER 244 mg/dL 70-110 H TESTED AT [place] [address] (BEAKER) (test code = [facility] 1538) [address] POCT-GLUCOSE [id number] 07:53:00 Test Item Value Reference Range Interpretation Comments POC-GLUCOSE METER 160 mg/dL 70-110 H TESTED AT [place] [address] (BEAKER) (test code = [facility] 1538) [address] BASIC METABOLIC [id number] 05:29:00 Test Item Value Reference Range Interpretation Comments SODIUM (BEAKER) 136 meq/L 136-145 (test code = 381) POTASSIUM (BEAKER) 4.5 meq/L 3.5-5.1 (test code = 379) CHLORIDE (BEAKER) 105 meq/L 98-107 (test code = 382) CO2 (BEAKER) (test 24 meq/L 22-29 code = 355) BLOOD UREA NITROGEN 51 mg/dL 7-21 H (BEAKER) (test code = 354) CREATININE (BEAKER) 1.76 mg/dL 0.57-1.25 H (test code = 358) GLUCOSE RANDOM 149 mg/dL 70-105 H (BEAKER) (test code = 652) CALCIUM (BEAKER) 8.9 mg/dL 8.4-10.2 (test code = 697) EGFR (BEAKER) (test 29 mL/min/1.73 ESTIMA HINA GFR IS code = 1092) sq m NOT ACCURATE CREATININE CLEARANCE IN PREDICTING GLOMERULAR FILTRATION RATE . ESTIMATED GFR I S NOT APPLICABLE FOR DIALYSIS PATIEN TS. [id number] 05:21:00 Test Item Value Reference Range Interpretation Comments MAGNESIUM (BEAKER) (test code = 2.1 mg/dL 1.6-2.6 627) HEPATIC FUNCTION [id number] 05:21:00 Test Item Value Reference Range Interpretation Comments TOTAL PROTEIN (BEAKER) (test code = 6.8 gm/dL 6.0-8.3 770) ALBUMIN (BEAKER) (test code = 1145) 2.9 g/dL 3.5-5.0 L BILIRUBIN TOTAL (BEAKER) (test code 0.5 mg/dL 0.2-1.2 = 377) BILIRUBIN DIRECT (BEAKER) (test 0.2 mg/dL 0.1-0.5 code = 706) ALKALINE PHOSPHATASE (BEAKER) (test 173 U/L 40-150 H code = 346) AST (SGOT) (BEAKER) (test code = 25 U/L 5-34 353) ALT (SGPT) (BEAKER) (test code = 23 U/L 6-55 347) TROPONIN [id number] 05:18:00 Test Item Value Reference Range Interpretation Comments TROPONIN I (BEAKER) (test code = 0.05 ng/mL 0.00-0.03 H 397) Troponin I (TnI) levels must be interpreted [...] 2017-09-03 04:59:00 Test Item Value Reference Range Interpretation Comments WHITE BLOOD CELL COUNT (BEAKER) 6.9 K/ L 3.5-10.5 (test code = 775) RED BLOOD CELL COUNT (BEAKER) 3.75 M/ L 3.93-5.22 L (test code = 761) HEMOGLOBIN (BEAKER) (test code = 8.9 GM/DL 11.2-15.7 L 410) HEMATOCRIT (BEAKER) (test code = 29.7 % 34.1-44.9 L 411) MEAN CORPUSCULAR VOLUME (BEAKER) 79.2 fL 79.4-94.8 L (test code = 753) MEAN CORPUSCULAR HEMOGLOBIN 23.7 pg 25.6-32.2 L (BEAKER) (test code = 751) MEAN CORPUSCULAR HEMOGLOBIN CONC 30.0 GM/DL 32.2-35.5 L (BEAKER) (test code = 752) RED CELL DISTRIBUTION WIDTH 16.2 % 11.7-14.4 H (BEAKER) (test code = 412) PLATELET COUNT (BEAKER) (test 240 K/CU MM 150-450 code = 756) MEAN PLATELET VOLUME (BEAKER) 9.6 fL 9.4-12.3 (test code = 754) NUCLEATED RED BLOOD CELLS 0 /100 WBC 0-0 (BEAKER) (test code = 413) NEUTROPHILS RELATIVE PERCENT 48 % (BEAKER) (test code = 429) LYMPHOCYTES RELATIVE PERCENT 40 % (BEAKER) (test code = 430) MONOCYTES RELATIVE PERCENT 6 % (BEAKER) (test code = 431) EOSINOPHILS RELATIVE PERCENT 5 % (BEAKER) (test code = 432) BASOPHILS RELATIVE PERCENT 1 % (BEAKER) (test code = 437) NEUTROPHILS ABSOLUTE COUNT 3.32 K/ L 1.56-6.13 (BEAKER) (test code = 670) LYMPHOCYTES ABSOLUTE COUNT 2.76 K/ L 1.18-3.74 (BEAKER) (test code = 414) MONOCYTES ABSOLUTE COUNT (BEAKER) 0.39 K/ L 0.24-0.36 H (test code = 415) EOSINOPHILS ABSOLUTE COUNT 0.36 K/ L 0.04-0.36 (BEAKER) (test code = 416) BASOPHILS ABSOLUTE COUNT (BEAKER) 0.06 K/ L 0.01-0.08 (test code = 417) IMMATURE GRANULOCYTES-RELATIVE 0 % 0-1 PERCENT (BEAKER) (test code = 2801) TROPONIN [id number] 23:40:00 Test Item Value Reference Range Interpretation Comments TROPONIN I (BEAKER) (test code = 0.04 ng/mL 0.00-0.03 H 397) Troponin I (TnI) levels must be interpreted [...] acidosis, acute neurological disease, and persistent tachyarrhythmia.POCT-GLUCOSE [id number] 22:51:00 Test Item Value Reference Range Interpretation Comments POC-GLUCOSE METER 214 mg/dL 70-110 H TESTED AT [facility] 6720 (BEAKER) (test code = [place] 1538) [address] RAD, CHEST, 1 VIEW, NON [id number] 21:42:00Reason for exam:->CHEST PAINShould this be performed at the bedside?->YesFINAL REPORT RAD, CHEST, 1 VIEW, NON DEPT INDICATION: CHEST PAIN COMPARISON: Chest x-ray 4 weeks ago TECHNIQUE: Single frontal view of the chest. IMPRESSION:Cardiomegaly.Mild pulmonary interstitial edema with a small right- sided effusion.No acute osseous abnormality. Signed: Dario Abraham MDReport Verified Date/Time: 09/02/2017 21:42:11 Reading Location: [address] Reading Room CREATININE, RANDOM [id number] 21:10:00 Test Item Value Reference Range Interpretation Comments CREATININE URINE (BEAKER) (test 35.5 mg/dL code = 375) Reference Range: No NormalsSODIUM, RANDOM [id number] 21:10:00 Test Item Value Reference Range Interpretation Comments SODIUM URINE (BEAKER) (test code = 80 meq/L 243) Reference Range: No NormalsURINALYSIS W/ [id number] 20:59:00 Test Item Value Reference Range Interpretation Comments COLOR (BEAKER) (test code = 470) Light Yellow CLARITY (BEAKER) (test code = Clear 469) SPECIFIC GRAVITY UA (BEAKER) 1.008 1.001-1.035 (test code = 468) PH UA (BEAKER) (test code = 467) 6.5 5.0-8.0 PROTEIN UA (BEAKER) (test code = 200 mg/dL Negative A 464) GLUCOSE UA (BEAKER) (test code = 70 mg/dL Negative A 365) KETONES UA (BEAKER) (test code = Negative Negative 371) BILIRUBIN UA (BEAKER) (test code Negative Negative = 462) BLOOD UA (BEAKER) (test code = Negative Negative 461) NITRITE UA (BEAKER) (test code = Negative Negative 465) LEUKOCYTE ESTERASE UA (BEAKER) Negative Negative (test code = 466) UROBILINOGEN UA (BEAKER) (test 0.2 mg/dL 0.2-1.0 code = 463) RBC UA (BEAKER) (test code = < /HPF 519) WBC UA (BEAKER) (test code = 2 /HPF 520) BACTERIA (BEAKER) (test code = Occasional 517) MUCUS (BEAKER) (test code = Rare 1574) SQUAMOUS EPITHELIAL (BEAKER) 2 /HPF (test code = 516) HYALINE CASTS (BEAKER) (test 7 /LPF code = 514) SOURCE(BEAKER) (test code = 0615) BASIC METABOLIC [id number] 16:49:00 Test Item Value Reference Range Interpretation Comments SODIUM (BEAKER) 134 meq/L 136-145 L (test code = 381) POTASSIUM (BEAKER) 4.8 meq/L 3.5-5.1 (test code = 379) CHLORIDE (BEAKER) 101 meq/L 98-107 (test code = 382) CO2 (BEAKER) (test 26 meq/L 22-29 code = 355) BLOOD UREA NITROGEN 53 mg/dL 7-21 H (BEAKER) (test code = 354) CREATININE (BEAKER) 2.04 mg/dL 0.57-1.25 H (test code = 358) GLUCOSE RANDOM 267 mg/dL 70-105 H (BEAKER) (test code = 652) CALCIUM (BEAKER) 9.1 mg/dL 8.4-10.2 (test code = 697) EGFR (BEAKER) (test 25 mL/min/1.73 ESTIMA HINA GFR IS code = 1092) sq m NOT ACCURATE CREATININE CLEARANCE IN PREDICTING GLOMERULAR FILTRATION RATE . ESTIMATED GFR I S NOT APPLICABLE FOR DIALYSIS PATIEN TS. [id number] 16:38:00 Test Item Value Reference Range Interpretation Comments PROTIME (BEAKER) (test code = 14.4 seconds 11.7-14.7 759) INR (BEAKER) (test code = 370) 1.1 <=5.9 PARTIAL THROMBOPLASTIN TIME 31.0 seconds 22.5-36.0 (BEAKER) (test code = 760) RECOMMENDED COUMADIN/WARFARIN INR THERAPY RANGESSTANDARD DOSE: 2.0 - 3.0 Includes: PROPHYLAXIS forvenous thrombosis, systemic embolization; TREATMENT for venous thrombosis and/or pulmonary embolus.HIGH RISK: Target INR is 2.5-3.5 for patients with mechanical heart valves.CBC W/PLT COUNT & AUTO DIFFERENTIAL 2017-09-02 16:26:00 Test Item Value Reference Range Interpretation Comments WHITE BLOOD CELL COUNT (BEAKER) 6.3 K/ L 3.5-10.5 (test code = 775) RED BLOOD CELL COUNT (BEAKER) 4.22 M/ L 3.93-5.22 (test code = 761) HEMOGLOBIN (BEAKER) (test code = 10.1 GM/DL 11.2-15.7 L 410) HEMATOCRIT (BEAKER) (test code = 33.4 % 34.1-44.9 L 411) MEAN CORPUSCULAR VOLUME (BEAKER) 79.1 fL 79.4-94.8 L (test code = 753) MEAN CORPUSCULAR HEMOGLOBIN 23.9 pg 25.6-32.2 L (BEAKER) (test code = 751) MEAN CORPUSCULAR HEMOGLOBIN CONC 30.2 GM/DL 32.2-35.5 L (BEAKER) (test code = 752) RED CELL DISTRIBUTION WIDTH 16.1 % 11.7-14.4 H (BEAKER) (test code = 412) PLATELET COUNT (BEAKER) (test 252 K/CU MM 150-450 code = 756) MEAN PLATELET VOLUME (BEAKER) 9.5 fL 9.4-12.3 (test code = 754) NUCLEATED RED BLOOD CELLS 0 /100 WBC 0-0 (BEAKER) (test code = 413) NEUTROPHILS RELATIVE PERCENT 49 % (BEAKER) (test code = 429) LYMPHOCYTES RELATIVE PERCENT 38 % (BEAKER) (test code = 430) MONOCYTES RELATIVE PERCENT 6 % (BEAKER) (test code = 431) EOSINOPHILS RELATIVE PERCENT 5 % (BEAKER) (test code = 432) BASOPHILS RELATIVE PERCENT 1 % (BEAKER) (test code = 437) NEUTROPHILS ABSOLUTE COUNT 3.08 K/ L 1.56-6.13 (BEAKER) (test code = 670) LYMPHOCYTES ABSOLUTE COUNT 2.42 K/ L 1.18-3.74 (BEAKER) (test code = 414) MONOCYTES ABSOLUTE COUNT (BEAKER) 0.40 K/ L 0.24-0.36 H (test code = 415) EOSINOPHILS ABSOLUTE COUNT 0.33 K/ L 0.04-0.36 (BEAKER) (test code = 416) BASOPHILS ABSOLUTE COUNT (BEAKER) 0.07 K/ L 0.01-0.08 (test code = 417) IMMATURE GRANULOCYTES-RELATIVE 0 % 0-1 PERCENT (BEAKER) (test code = 2801) B-TYPE NATRIURETIC FACTOR (BNP)2017-09-02 13:47:00 Test Item Value Reference Range Interpretation Comments B-TYPE NATRIURETIC PEPTIDE 1942 pg/mL 0-100 H (BEAKER) (test code = 700) BASIC METABOLIC [id number] 13:43:00 Test Item Value Reference Range Interpretation Comments SODIUM (BEAKER) 134 meq/L 136-145 L (test code = 381) POTASSIUM (BEAKER) 5.2 meq/L 3.5-5.1 H (test code = 379) CHLORIDE (BEAKER) 101 meq/L 98-107 (test code = 382) CO2 (BEAKER) (test 25 meq/L 22-29 code = 355) BLOOD UREA NITROGEN 55 mg/dL 7-21 H (BEAKER) (test code = 354) CREATININE (BEAKER) 2.09 mg/dL 0.57-1.25 H (test code = 358) GLUCOSE RANDOM 317 mg/dL 70-105 H (BEAKER) (test code = 652) CALCIUM (BEAKER) 9.2 mg/dL 8.4-10.2 (test code = 697) EGFR (BEAKER) (test 24 mL/min/1.73 ESTIMA HINA GFR IS code = 1092) sq m NOT ACCURATE CREATININE CLEARANCE IN PREDICTING GLOMERULAR FILTRATION RATE . ESTIMATED GFR I S NOT APPLICABLE FOR DIALYSIS PATIEN TS. POCT-GLUCOSE [id number] 12:44:00 Test Item Value Reference Range Interpretation Comments POC-GLUCOSE METER 283 mg/dL 70-110 H TESTED AT [facility] 6720 (BEAKER) (test code = [place] 1538) [address] CALCIUM, [id number] 07:03:00 Test Item Value Reference Range Interpretation Comments CALCIUM IONIZED (BEAKER) (test 1.02 mmol/L 1.12-1.27 L code = 698) PH, BLOOD (BEAKER) (test code = 7.43 1810) [id number] 05:28:00 Test Item Value Reference Range Interpretation Comments PHOSPHORUS (BEAKER) (test code = 3.3 mg/dL 2.3-4.7 604) [id number] 05:28:00 Test Item Value Reference Range Interpretation Comments MAGNESIUM (BEAKER) (test code = 1.5 mg/dL 1.6-2.6 L 627) BASIC METABOLIC [id number] 05:28:00 Test Item Value Reference Range Interpretation Comments SODIUM (BEAKER) 135 meq/L 136-145 L (test code = 381) POTASSIUM (BEAKER) 3.9 meq/L 3.5-5.1 (test code = 379) CHLORIDE (BEAKER) 101 meq/L 98-107 (test code = 382) CO2 (BEAKER) (test 27 meq/L 22-29 code = 355) BLOOD UREA NITROGEN 35 mg/dL 7-21 H (BEAKER) (test code = 354) CREATININE (BEAKER) 1.37 mg/dL 0.57-1.25 H (test code = 358) GLUCOSE RANDOM 145 mg/dL 70-105 H (BEAKER) (test code = 652) CALCIUM (BEAKER) 8.3 mg/dL 8.4-10.2 L (test code = 697) EGFR (BEAKER) (test 39 mL/min/1.73 ESTIMA HINA GFR IS code = 1092) sq m NOT ACCURATE CREATININE CLEARANCE IN PREDICTING GLOMERULAR FILTRATION RATE . ESTIMATED GFR I S NOT APPLICABLE FOR DIALYSIS PATIEN TS. CBC W/PLT COUNT & AUTO [id number] 05:06:00 Test Item Value Reference Range Interpretation Comments WHITE BLOOD CELL COUNT (BEAKER) 9.3 K/ L 3.5-10.5 (test code = 775) RED BLOOD CELL COUNT (BEAKER) 3.64 M/ L 3.93-5.22 L (test code = 761) HEMOGLOBIN (BEAKER) (test code = 8.7 GM/DL 11.2-15.7 L 410) HEMATOCRIT (BEAKER) (test code = 28.5 % 34.1-44.9 L 411) MEAN CORPUSCULAR VOLUME (BEAKER) 78.3 fL 79.4-94.8 L (test code = 753) MEAN CORPUSCULAR HEMOGLOBIN 23.9 pg 25.6-32.2 L (BEAKER) (test code = 751) MEAN CORPUSCULAR HEMOGLOBIN CONC 30.5 GM/DL 32.2-35.5 L (BEAKER) (test code = 752) RED CELL DISTRIBUTION WIDTH 14.6 % 11.7-14.4 H (BEAKER) (test code = 412) PLATELET COUNT (BEAKER) (test 336 K/CU MM 150-450 code = 756) MEAN PLATELET VOLUME (BEAKER) 9.3 fL 9.4-12.3 L (test code = 754) NUCLEATED RED BLOOD CELLS 0 /100 WBC 0-0 (BEAKER) (test code = 413) NEUTROPHILS RELATIVE PERCENT 50 % (BEAKER) (test code = 429) LYMPHOCYTES RELATIVE PERCENT 40 % (BEAKER) (test code = 430) MONOCYTES RELATIVE PERCENT 6 % (BEAKER) (test code = 431) EOSINOPHILS RELATIVE PERCENT 3 % (BEAKER) (test code = 432) BASOPHILS RELATIVE PERCENT 1 % (BEAKER) (test code = 437) NEUTROPHILS ABSOLUTE COUNT 4.66 K/ L 1.56-6.13 (BEAKER) (test code = 670) LYMPHOCYTES ABSOLUTE COUNT 3.71 K/ L 1.18-3.74 (BEAKER) (test code = 414) MONOCYTES ABSOLUTE COUNT (BEAKER) 0.53 K/ L 0.24-0.36 H (test code = 415) EOSINOPHILS ABSOLUTE COUNT 0.31 K/ L 0.04-0.36 (BEAKER) (test code = 416) BASOPHILS ABSOLUTE COUNT (BEAKER) 0.07 K/ L 0.01-0.08 (test code = 417) IMMATURE GRANULOCYTES-RELATIVE 1 % 0-1 PERCENT (BEAKER) (test code = 2801) POCT-GLUCOSE [id number] 21:08:00 Test Item Value Reference Range Interpretation Comments POC-GLUCOSE METER 202 mg/dL 70-110 H TESTED AT [facility] 6720 (BEAKER) (test code = [facility] 1538) [address] POCT-GLUCOSE [id number] 16:50:00 Test Item Value Reference Range Interpretation Comments POC-GLUCOSE METER 287 mg/dL 70-110 H TESTED AT [place] [address] (BEAKER) (test code = [facility] 1538) [address] POCT-GLUCOSE [id number] 12:21:00 Test Item Value Reference Range Interpretation Comments POC-GLUCOSE METER 213 mg/dL 70-110 H TESTED AT [place] [address] (BEAKER) (test code = [facility] 1538) [address] POCT-GLUCOSE [id number] 08:28:00 Test Item Value Reference Range Interpretation Comments POC-GLUCOSE METER 178 mg/dL 70-110 H TESTED AT [place] [address] ([facility] (test code = [facility] 1538) [address] CALCIUM, [id number] 07:06:00 Test Item Value Reference Range Interpretation Comments CALCIUM IONIZED (BEAKER) (test 0.99 mmol/L 1.12-1.27 L code = 698) PH, BLOOD (BEAKER) (test code = 7.42 1810) [id number] 05:37:00 Test Item Value Reference Range Interpretation Comments PHOSPHORUS (BEAKER) (test code = 3.5 mg/dL 2.3-4.7 604) [id number] 05:37:00 Test Item Value Reference Range Interpretation Comments MAGNESIUM (BEAKER) (test code = 1.6 mg/dL 1.6-2.6 627) BASIC METABOLIC [id number] 05:37:00 Test Item Value Reference Range Interpretation Comments SODIUM (BEAKER) 133 meq/L 136-145 L (test code = 381) POTASSIUM (BEAKER) 3.8 meq/L 3.5-5.1 (test code = 379) CHLORIDE (BEAKER) 101 meq/L 98-107 (test code = 382) CO2 (BEAKER) (test 25 meq/L 22-29 code = 355) BLOOD UREA NITROGEN 39 mg/dL 7-21 H (BEAKER) (test code = 354) CREATININE (BEAKER) 1.42 mg/dL 0.57-1.25 H (test code = 358) GLUCOSE RANDOM 200 mg/dL 70-105 H (BEAKER) (test code = 652) CALCIUM (BEAKER) 8.0 mg/dL 8.4-10.2 L (test code = 697) EGFR (BEAKER) (test 37 mL/min/1.73 ESTIMA HINA GFR IS code = 1092) sq m NOT ACCURATE CREATININE CLEARANCE IN PREDICTING GLOMERULAR FILTRATION RATE . ESTIMATED GFR I S NOT APPLICABLE FOR DIALYSIS PATIEN TS. CBC W/PLT COUNT & AUTO [id number] 05:07:00 Test Item Value Reference Range Interpretation Comments WHITE BLOOD CELL COUNT (BEAKER) 9.2 K/ L 3.5-10.5 (test code = 775) RED BLOOD CELL COUNT (BEAKER) 3.69 M/ L 3.93-5.22 L (test code = 761) HEMOGLOBIN (BEAKER) (test code = 8.8 GM/DL 11.2-15.7 L 410) HEMATOCRIT (BEAKER) (test code = 28.8 % 34.1-44.9 L 411) MEAN CORPUSCULAR VOLUME (BEAKER) 78.0 fL 79.4-94.8 L (test code = 753) MEAN CORPUSCULAR HEMOGLOBIN 23.8 pg 25.6-32.2 L (BEAKER) (test code = 751) MEAN CORPUSCULAR HEMOGLOBIN CONC 30.6 GM/DL 32.2-35.5 L (BEAKER) (test code = 752) RED CELL DISTRIBUTION WIDTH 14.6 % 11.7-14.4 H (BEAKER) (test code = 412) PLATELET COUNT (BEAKER) (test 308 K/CU MM 150-450 code = 756) MEAN PLATELET VOLUME (BEAKER) 9.3 fL 9.4-12.3 L (test code = 754) NUCLEATED RED BLOOD CELLS 0 /100 WBC 0-0 (BEAKER) (test code = 413) NEUTROPHILS RELATIVE PERCENT 61 % (BEAKER) (test code = 429) LYMPHOCYTES RELATIVE PERCENT 30 % (BEAKER) (test code = 430) MONOCYTES RELATIVE PERCENT 5 % (BEAKER) (test code = 431) EOSINOPHILS RELATIVE PERCENT 3 % (BEAKER) (test code = 432) BASOPHILS RELATIVE PERCENT 0 % (BEAKER) (test code = 437) NEUTROPHILS ABSOLUTE COUNT 5.67 K/ L 1.56-6.13 (BEAKER) (test code = 670) LYMPHOCYTES ABSOLUTE COUNT 2.72 K/ L 1.18-3.74 ([facility]) (test code = 414) MONOCYTES ABSOLUTE COUNT (BEAKER) 0.48 K/ L 0.24-0.36 H (test code = 415) EOSINOPHILS ABSOLUTE COUNT 0.26 K/ L 0.04-0.36 (AKER) (test code = 416) BASOPHILS ABSOLUTE COUNT (AKER) 0.04 K/ L 0.01-0.08 (test code = 417) IMMATURE GRANULOCYTES-RELATIVE 1 % 0-1 PERCENT ([facility]) (test code = 2801) POCT-GLUCOSE [id number] 21:24:00 Test Item Value Reference Range Interpretation Comments POC-GLUCOSE METER 255 mg/dL 70-110 H TESTED AT [place] [address] ([facility]) (test code = [facility] 1538) [address] POCT-GLUCOSE [id number] 17:11:00 Test Item Value Reference Range Interpretation Comments POC-GLUCOSE METER 244 mg/dL 70-110 H TESTED AT [place] [address] ([facility]) (test code = [facility] 1538) [address] POCT-GLUCOSE [id number] 11:54:00 Test Item Value Reference Range Interpretation Comments POC-GLUCOSE METER 209 mg/dL 70-110 H TESTED AT [place] [address] ([facility]) (test code = [facility] 1538) [address] POCT-GLUCOSE [id number] 08:15:00 Test Item Value Reference Range Interpretation Comments POC-GLUCOSE METER 132 mg/dL 70-110 H TESTED AT [place] [address] ([facility]) (test code = [facility] 1538) [address] RAD, CHEST, 1 VIEW, NON [id number] 07:44:00Reason for exam:->edemaShould this be performed at the bedside?->YesFINAL REPORT Chest one view AP 08/07/2017 7:44 AM CLINICAL INDICATION: edema COMPARISON: 05/31/2017 IMPRESSION: Cardiomediastinal contours are stable. There is mild pulmonary edema,asymmetric to the right. There are trace bilateral pleural effusions, with bibasilar linear atelectasis. Sternotomy wires remain midline. Signed: Regan Cespedes MDReport Verified Date/Time: 08/07/2017 07:44:22 Reading Location: [facility] Radiology Reading Room [id number] 05:30:00 Test Item Value Reference Range Interpretation Comments FERRITIN (BEAKER) (test code = 361) 87 ng/mL 5-275 CBC W/PLT COUNT & AUTO [id number] 05:21:00 Test Item Value Reference Range Interpretation Comments WHITE BLOOD CELL COUNT (BEAKER) 12.4 K/ L 3.5-10.5 H (test code = 775) RED BLOOD CELL COUNT (BEAKER) 3.78 M/ L 3.93-5.22 L (test code = 761) HEMOGLOBIN (BEAKER) (test code = 9.0 GM/DL 11.2-15.7 L 410) HEMATOCRIT (BEAKER) (test code = 29.3 % 34.1-44.9 L 411) MEAN CORPUSCULAR VOLUME (BEAKER) 77.5 fL 79.4-94.8 L (test code = 753) MEAN CORPUSCULAR HEMOGLOBIN 23.8 pg 25.6-32.2 L (BEAKER) (test code = 751) MEAN CORPUSCULAR HEMOGLOBIN CONC 30.7 GM/DL 32.2-35.5 L (BEAKER) (test code = 752) RED CELL DISTRIBUTION WIDTH 14.7 % 11.7-14.4 H (BEAKER) (test code = 412) PLATELET COUNT (BEAKER) (test 316 K/CU MM 150-450 code = 756) MEAN PLATELET VOLUME (BEAKER) 9.6 fL 9.4-12.3 (test code = 754) NUCLEATED RED BLOOD CELLS 0 /100 WBC 0-0 (BEAKER) (test code = 413) NEUTROPHILS RELATIVE PERCENT 72 % (BEAKER) (test code = 429) LYMPHOCYTES RELATIVE PERCENT 20 % (BEAKER) (test code = 430) MONOCYTES RELATIVE PERCENT 5 % (BEAKER) (test code = 431) EOSINOPHILS RELATIVE PERCENT 2 % (BEAKER) (test code = 432) BASOPHILS RELATIVE PERCENT 1 % (BEAKER) (test code = 437) NEUTROPHILS ABSOLUTE COUNT 8.93 K/ L 1.56-6.13 H (BEAKER) (test code = 670) LYMPHOCYTES ABSOLUTE COUNT 2.51 K/ L 1.18-3.74 (BEAKER) (test code = 414) MONOCYTES ABSOLUTE COUNT (BEAKER) 0.58 K/ L 0.24-0.36 H (test code = 415) EOSINOPHILS ABSOLUTE COUNT 0.23 K/ L 0.04-0.36 (BEAKER) (test code = 416) BASOPHILS ABSOLUTE COUNT (BEAKER) 0.07 K/ L 0.01-0.08 (test code = 417) IMMATURE GRANULOCYTES-RELATIVE 1 % 0-1 PERCENT (BEAKER) (test code = 2801) IRON, TIBC, % SAT. (WITHOUT FERRITIN)2017-08-07 05:16:00 Test Item Value Reference Range Interpretation Comments IRON (BEAKER) (test code = 547) 21 ug/dL 40-160 L TOTAL IRON BINDING CAPACITY 184 ug/dL 250-450 L (BEAKER) (test code = 769) IRON % SATURATION (2) (BEAKER) 11 % 20-55 L (test code = 2590) [id number] 05:11:00 Test Item Value Reference Range Interpretation Comments PHOSPHORUS (BEAKER) (test code = 3.6 mg/dL 2.3-4.7 604) [id number] 05:11:00 Test Item Value Reference Range Interpretation Comments MAGNESIUM (BEAKER) (test code = 2.0 mg/dL 1.6-2.6 627) BASIC METABOLIC [id number] 05:11:00 Test Item Value Reference Range Interpretation Comments SODIUM (BEAKER) 134 meq/L 136-145 L (test code = 381) POTASSIUM (BEAKER) 3.9 meq/L 3.5-5.1 (test code = 379) CHLORIDE (BEAKER) 102 meq/L 98-107 (test code = 382) CO2 (BEAKER) (test 23 meq/L 22-29 code = 355) BLOOD UREA NITROGEN 41 mg/dL 7-21 H (BEAKER) (test code = 354) CREATININE (BEAKER) 1.63 mg/dL 0.57-1.25 H (test code = 358) GLUCOSE RANDOM 124 mg/dL 70-105 H (BEAKER) (test code = 652) CALCIUM (BEAKER) 8.3 mg/dL 8.4-10.2 L (test code = 697) EGFR (BEAKER) (test 32 mL/min/1.73 ESTIMA HINA GFR IS code = 1092) sq m NOT ACCURATE CREATININE CLEARANCE IN PREDICTING GLOMERULAR FILTRATION RATE . ESTIMATED GFR I S NOT APPLICABLE FOR DIALYSIS PATIEN TS. B-TYPE NATRIURETIC FACTOR (BNP)2017-08-07 05:05:00 Test Item Value Reference Range Interpretation Comments B-TYPE NATRIURETIC PEPTIDE 1561 pg/mL 0-100 H (BEAKER) (test code = 700) CALCIUM, [id number] 04:58:00 Test Item Value Reference Range Interpretation Comments CALCIUM IONIZED (BEAKER) (test 1.04 mmol/L 1.12-1.27 L code = 698) PH, BLOOD (BEAKER) (test code = 7.41 1810) RETICULOCYTE [id number] 04:51:00 Test Item Value Reference Range Interpretation Comments RETICULOCYTE COUNT PCT (BEAKER) (test 1.2 % 0.5-1.7 code = 575) POCT-GLUCOSE [id number] 20:49:00 Test Item Value Reference Range Interpretation Comments POC-GLUCOSE METER 202 mg/dL 70-110 H TESTED AT [facility] 6720 (BEAKER) (test code = JULIANO Osborne [place] 1538) [address] CREATININE, RANDOM [id number] 18:38:00 Test Item Value Reference Range Interpretation Comments CREATININE URINE (BEAKER) (test 56.3 mg/dL code = 375) Reference Range: No NormalsPROTEIN, RANDOM [id number] 18:38:00 Test Item Value Reference Range Interpretation Comments PROTEIN, URINE (BEAKER) (test code 189 mg/dL 0-14 H = 1569) URINALYSIS W/ [id number] 18:34:00 Test Item Value Reference Range Interpretation Comments COLOR (BEAKER) (test code = Light Yellow 470) CLARITY (BEAKER) (test code = Hazy 469) SPECIFIC GRAVITY UA (BEAKER) 1.008 1.001-1.035 (test code = 468) PH UA (BEAKER) (test code = 5.5 5.0-8.0 467) PROTEIN UA (BEAKER) (test code 100 mg/dL Negative A = 464) GLUCOSE UA (BEAKER) (test code 30 mg/dL Negative A = 365) KETONES UA (BEAKER) (test code Negative Negative = 371) BILIRUBIN UA (BEAKER) (test Negative Negative code = 462) BLOOD UA (BEAKER) (test code = Negative Negative 461) NITRITE UA (BEAKER) (test code Negative Negative = 465) LEUKOCYTE ESTERASE UA (BEAKER) Negative Negative (test code = 466) UROBILINOGEN UA (BEAKER) (test 0.2 mg/dL 0.2-1.0 code = 463) RBC UA (BEAKER) (test code = < /HPF 519) WBC UA (BEAKER) (test code = 2 /HPF 520) BACTERIA (BEAKER) (test code = Rare 517) MUCUS (BEAKER) (test code = Rare 1574) SQUAMOUS EPITHELIAL (BEAKER) 8 /HPF (test code = 516) SOURCE(BEAKER) (test code = Urine, Voided 5450) POCT-GLUCOSE [id number] 17:38:00 Test Item Value Reference Range Interpretation Comments POC-GLUCOSE METER 143 mg/dL 70-110 H TESTED AT [place] [address] ([facility]) (test code = [facility] 1538) [address] POCT-GLUCOSE [id number] 12:30:00 Test Item Value Reference Range Interpretation Comments POC-GLUCOSE METER 218 mg/dL 70-110 H TESTED AT [place] [address] ([facility]) (test code = [facility] 1538) [address] POCT-GLUCOSE [id number] 08:00:00 Test Item Value Reference Range Interpretation Comments POC-GLUCOSE METER 134 mg/dL 70-110 H TESTED AT [place] [address] ([facility]) (test code = [facility] 1538) [address] CBC W/PLT COUNT & AUTO [id number] 04:23:00 Test Item Value Reference Range Interpretation Comments WHITE BLOOD CELL COUNT (BEAKER) 13.9 K/ L 3.5-10.5 H (test code = 775) RED BLOOD CELL COUNT (BEAKER) 3.23 M/ L 3.93-5.22 L (test code = 761) HEMOGLOBIN (BEAKER) (test code = 7.6 GM/DL 11.2-15.7 L 410) HEMATOCRIT (BEAKER) (test code = 25.3 % 34.1-44.9 L 411) MEAN CORPUSCULAR VOLUME (BEAKER) 78.3 fL 79.4-94.8 L (test code = 753) MEAN CORPUSCULAR HEMOGLOBIN 23.5 pg 25.6-32.2 L (BEAKER) (test code = 751) MEAN CORPUSCULAR HEMOGLOBIN CONC 30.0 GM/DL 32.2-35.5 L (BEAKER) (test code = 752) RED CELL DISTRIBUTION WIDTH 14.8 % 11.7-14.4 H (BEAKER) (test code = 412) PLATELET COUNT (BEAKER) (test 284 K/CU MM 150-450 code = 756) MEAN PLATELET VOLUME (BEAKER) 9.8 fL 9.4-12.3 (test code = 754) NUCLEATED RED BLOOD CELLS 0 /100 WBC 0-0 (BEAKER) (test code = 413) NEUTROPHILS RELATIVE PERCENT 77 % (BEAKER) (test code = 429) LYMPHOCYTES RELATIVE PERCENT 16 % (BEAKER) (test code = 430) MONOCYTES RELATIVE PERCENT 4 % (BEAKER) (test code = 431) EOSINOPHILS RELATIVE PERCENT 2 % (BEAKER) (test code = 432) BASOPHILS RELATIVE PERCENT 1 % (BEAKER) (test code = 437) NEUTROPHILS ABSOLUTE COUNT 10.70 K/ L 1.56-6.13 H (BEAKER) (test code = 670) LYMPHOCYTES ABSOLUTE COUNT 2.17 K/ L 1.18-3.74 (BEAKER) (test code = 414) MONOCYTES ABSOLUTE COUNT (BEAKER) 0.57 K/ L 0.24-0.36 H (test code = 415) EOSINOPHILS ABSOLUTE COUNT 0.30 K/ L 0.04-0.36 (BEAKER) (test code = 416) BASOPHILS ABSOLUTE COUNT (BEAKER) 0.08 K/ L 0.01-0.08 (test code = 417) IMMATURE GRANULOCYTES-RELATIVE 1 % 0-1 PERCENT (BEAKER) (test code = 2801) BASIC METABOLIC [id number] 04:13:00 Test Item Value Reference Range Interpretation Comments SODIUM (BEAKER) 134 meq/L 136-145 L (test code = 381) POTASSIUM (BEAKER) 4.6 meq/L 3.5-5.1 (test code = 379) CHLORIDE (BEAKER) 103 meq/L 98-107 (test code = 382) CO2 (BEAKER) (test 23 meq/L 22-29 code = 355) BLOOD UREA NITROGEN 43 mg/dL 7-21 H (BEAKER) (test code = 354) CREATININE (BEAKER) 1.79 mg/dL 0.57-1.25 H (test code = 358) GLUCOSE RANDOM 123 mg/dL 70-105 H (BEAKER) (test code = 652) CALCIUM (BEAKER) 8.1 mg/dL 8.4-10.2 L (test code = 697) EGFR (BEAKER) (test 29 mL/min/1.73 ESTIMA HINA GFR IS code = 1092) sq m NOT ACCURATE CREATININE CLEARANCE IN PREDICTING GLOMERULAR FILTRATION RATE . ESTIMATED GFR I S NOT APPLICABLE FOR DIALYSIS PATIEN TS. [id number] 04:10:00 Test Item Value Reference Range Interpretation Comments PHOSPHORUS (BEAKER) (test code = 4.9 mg/dL 2.3-4.7 H 604) [id number] 04:10:00 Test Item Value Reference Range Interpretation Comments MAGNESIUM (BEAKER) (test code = 1.4 mg/dL 1.6-2.6 L 627) [id number] 04:08:00 Test Item Value Reference Range Interpretation Comments FIBRINOGEN LEVEL (BEAKER) (test 548 mg/dl 225-434 H code = 658) [id number] 04:08:00 Test Item Value Reference Range Interpretation Comments PARTIAL THROMBOPLASTIN TIME 37.7 seconds 22.5-36.0 H (BEAKER) (test code = 760) PROTHROMBIN [id number] 04:07:00 Test Item Value Reference Range Interpretation Comments PROTIME (BEAKER) (test code = 16.2 seconds 11.7-14.7 H 759) INR (BEAKER) (test code = 370) 1.3 <=5.9 RECOMMENDED COUMADIN/WARFARIN INR THERAPY RANGESSTANDARD DOSE: 2.0 - 3.0 Includes: PROPHYLAXIS forvenous thrombosis, systemic embolization; TREATMENT for venous thrombosis and/or pulmonary embolus.HIGH RISK: Target INR is 2.5-3.5 for patients with mechanical heart valves.[id number] 16:59:00 Test Item Value Reference Range Interpretation Comments ACTIVATED CLOTTING TIME 219 sec TEST ED AT [place] [address] (BEAKER) (test code = [place] 441) [address] BASIC METABOLIC [id number] 14:25:00 Test Item Value Reference Range Interpretation Comments SODIUM (BEAKER) 134 meq/L 136-145 L (test code = 381) POTASSIUM (BEAKER) 4.4 meq/L 3.5-5.1 (test code = 379) CHLORIDE (BEAKER) 103 meq/L 98-107 (test code = 382) CO2 (BEAKER) (test 22 meq/L 22-29 code = 355) BLOOD UREA NITROGEN 46 mg/dL 7-21 H (BEAKER) (test code = 354) CREATININE (BEAKER) 2.16 mg/dL 0.57-1.25 H (test code = 358) GLUCOSE RANDOM 160 mg/dL 70-105 H (BEAKER) (test code = 652) CALCIUM (BEAKER) 7.8 mg/dL 8.4-10.2 L (test code = 697) EGFR (BEAKER) (test 23 mL/min/1.73 ESTIMA HINA GFR IS code = 1092) sq m NOT ACCURATE CREATININE CLEARANCE IN PREDICTING GLOMERULAR FILTRATION RATE . ESTIMATED GFR I S NOT APPLICABLE FOR DIALYSIS PATIEN TS. POCT-GLUCOSE [id number] 13:21:00 Test Item Value Reference Range Interpretation Comments POC-GLUCOSE METER 170 mg/dL 70-110 H TESTED AT [facility] 6720 (BEAKER) (test code = [place] 1538) [address] POTASSIUM-STAT [id number] 13:20:00 Test Item Value Reference Range Interpretation Comments POTASSIUM (BEAKER) (test code = 4.2 meq/L 3.6-5.5 379) SODIUM NA-STAT [id number] 13:20:00 Test Item Value Reference Range Interpretation Comments SODIUM (BEAKER) (test code = 381) 133 meq/L 135-148 L HGB/HCT (H&H) - STAT [id number] 12:34:00 Test Item Value Reference Range Interpretation Comments HEMOGLOBIN (BEAKER) (test code = 10.8 g/dL 12.0-15.0 L 410) HEMATOCRIT (BEAKER) (test code = 32.0 % 36.0-45.0 L 411) POTASSIUM-STAT [id number] 08:15:00 Test Item Value Reference Range Interpretation Comments POTASSIUM (BEAKER) (test code = 4.1 meq/L 3.6-5.5 379) BLOOD GAS, [id number] 08:15:00 Test Item Value Reference Range Interpretation Comments PH ARTERIAL (BEAKER) (test code = 7.36 7.35-7.45 383) PCO2 ARTERIAL (BEAKER) (test code 47 mmHg 35-45 H = 384) PO2 ARTERIAL (BEAKER) (test code = 213 mmHg 80-90 H 385) O2 SATURATION ARTERIAL (BEAKER) 99.4 % 96.0-97.0 H (test code = 386) HCO3 ARTERIAL (BEAKER) (test code 26 mmol/L 21-29 = 388) BASE EXCESS ARTERIAL (BEAKER) 0.3 mmol/L -2.0-3.0 (test code = 387) PATIENT TEMPERATURE (BEAKER) (test 37.2 C code = 1818) FIO2 (BEAKER) (test code = 1819) 70.0 % SODIUM NA-STAT [id number] 08:15:00 Test Item Value Reference Range Interpretation Comments SODIUM (BEAKER) (test code = 381) 130 meq/L 135-148 L GLUCOSE-STAT [id number] 08:15:00 Test Item Value Reference Range Interpretation Comments GLUCOSE RANDOM (BEAKER) (test code 172 mg/dL 70-110 H = 652) HGB/HCT (H&H) - STAT [id number] 08:15:00 Test Item Value Reference Range Interpretation Comments HEMOGLOBIN (BEAKER) (test code = 8.8 g/dL 12.0-15.0 L 410) HEMATOCRIT (BEAKER) (test code = 26.0 % 36.0-45.0 L 411) BASIC METABOLIC [id number] 07:37:00 Test Item Value Reference Range Interpretation Comments SODIUM (BEAKER) 135 meq/L 136-145 L (test code = 381) POTASSIUM (BEAKER) 4.4 meq/L 3.5-5.1 (test code = 379) CHLORIDE (BEAKER) 100 meq/L 98-107 (test code = 382) CO2 (BEAKER) (test 23 meq/L 22-29 code = 355) BLOOD UREA NITROGEN 46 mg/dL 7-21 H (BEAKER) (test code = 354) CREATININE (BEAKER) 1.98 mg/dL 0.57-1.25 H (test code = 358) GLUCOSE RANDOM 188 mg/dL 70-105 H (BEAKER) (test code = 652) CALCIUM (BEAKER) 8.9 mg/dL 8.4-10.2 (test code = 697) EGFR (BEAKER) (test 26 mL/min/1.73 ESTIMA HINA GFR IS code = 1092) sq m NOT ACCURATE CREATININE CLEARANCE IN PREDICTING GLOMERULAR FILTRATION RATE . ESTIMATED GFR I S NOT APPLICABLE FOR DIALYSIS PATIEN TS. CBC W/PLT COUNT & AUTO [id number] 07:20:00 Test Item Value Reference Range Interpretation Comments WHITE BLOOD CELL COUNT (BEAKER) 20.2 K/ L 3.5-10.5 H (test code = 775) RED BLOOD CELL COUNT (BEAKER) 3.86 M/ L 3.93-5.22 L (test code = 761) HEMOGLOBIN (BEAKER) (test code = 9.1 GM/DL 11.2-15.7 L 410) HEMATOCRIT (BEAKER) (test code = 29.4 % 34.1-44.9 L 411) MEAN CORPUSCULAR VOLUME (BEAKER) 76.2 fL 79.4-94.8 L (test code = 753) MEAN CORPUSCULAR HEMOGLOBIN 23.6 pg 25.6-32.2 L (BEAKER) (test code = 751) MEAN CORPUSCULAR HEMOGLOBIN CONC 31.0 GM/DL 32.2-35.5 L (BEAKER) (test code = 752) RED CELL DISTRIBUTION WIDTH 14.9 % 11.7-14.4 H (BEAKER) (test code = 412) PLATELET COUNT (BEAKER) (test 343 K/CU MM 150-450 code = 756) MEAN PLATELET VOLUME (BEAKER) 9.5 fL 9.4-12.3 (test code = 754) NUCLEATED RED BLOOD CELLS 0 /100 WBC 0-0 (BEAKER) (test code = 413) NEUTROPHILS RELATIVE PERCENT 78 % (BEAKER) (test code = 429) LYMPHOCYTES RELATIVE PERCENT 15 % (BEAKER) (test code = 430) MONOCYTES RELATIVE PERCENT 5 % (BEAKER) (test code = 431) EOSINOPHILS RELATIVE PERCENT 1 % (BEAKER) (test code = 432) BASOPHILS RELATIVE PERCENT 1 % (BEAKER) (test code = 437) NEUTROPHILS ABSOLUTE COUNT 15.70 K/ L 1.56-6.13 H (BEAKER) (test code = 670) LYMPHOCYTES ABSOLUTE COUNT 2.99 K/ L 1.18-3.74 (BEAKER) (test code = 414) MONOCYTES ABSOLUTE COUNT (BEAKER) 0.93 K/ L 0.24-0.36 H (test code = 415) EOSINOPHILS ABSOLUTE COUNT 0.20 K/ L 0.04-0.36 (BEAKER) (test code = 416) BASOPHILS ABSOLUTE COUNT (BEAKER) 0.12 K/ L 0.01-0.08 H (test code = 417) IMMATURE GRANULOCYTES-RELATIVE 1 % 0-1 PERCENT (BEAKER) (test code = 2801) POCT-GLUCOSE [id number] 07:03:00 Test Item Value Reference Range Interpretation Comments POC-GLUCOSE METER 186 mg/dL 70-110 H TESTED AT [facility] 6720 (BEAKER) (test code = JULIANO Osborne [facility] 1538) [address] B-TYPE NATRIURETIC FACTOR (BNP)2017-06-10 12:44:00 Test Item Value Reference Range Interpretation Comments B-TYPE NATRIURETIC PEPTIDE 1264 pg/mL 0-100 H (BEAKER) (test code = 700) [id number] 12:36:00 Test Item Value Reference Range Interpretation Comments MAGNESIUM (BEAKER) (test code = 1.6 mg/dL 1.6-2.6 627) BASIC METABOLIC [id number] 12:36:00 Test Item Value Reference Range Interpretation Comments SODIUM (BEAKER) 137 meq/L 136-145 (test code = 381) POTASSIUM (BEAKER) 5.4 meq/L 3.5-5.1 H (test code = 379) CHLORIDE (BEAKER) 108 meq/L 98-107 H (test code = 382) CO2 (BEAKER) (test 21 meq/L 22-29 L code = 355) BLOOD UREA NITROGEN 39 mg/dL 7-21 H (BEAKER) (test code = 354) CREATININE (BEAKER) 1.49 mg/dL 0.57-1.25 H (test code = 358) GLUCOSE RANDOM 219 mg/dL 70-105 H (BEAKER) (test code = 652) CALCIUM (BEAKER) 8.5 mg/dL 8.4-10.2 (test code = 697) EGFR (BEAKER) (test 35 mL/min/1.73 ESTIMA HINA GFR IS code = 1092) sq m NOT ACCURATE CREATININE CLEARANCE IN PREDICTING GLOMERULAR FILTRATION RATE . ESTIMATED GFR I S NOT APPLICABLE FOR DIALYSIS PATIEN TS. POCT-GLUCOSE [id number] 12:04:00 Test Item Value Reference Range Interpretation Comments POC-GLUCOSE METER 274 mg/dL 70-110 H TESTED AT [facility] 6720 (BEAKER) (test code = MATTHIASWY Dylon [facility] 1538) [address] POCT-GLUCOSE [id number] 07:21:00 Test Item Value Reference Range Interpretation Comments POC-GLUCOSE METER 137 mg/dL 70-110 H TESTED AT [facility] 6720 (BEAKER) (test code = [facility] Dylon [facility] 1538) [address] BASIC METABOLIC [id number] 05:10:00 Test Item Value Reference Range Interpretation Comments SODIUM (BEAKER) 137 meq/L 136-145 (test code = 381) POTASSIUM (BEAKER) 4.1 meq/L 3.5-5.1 (test code = 379) CHLORIDE (BEAKER) 106 meq/L 98-107 (test code = 382) CO2 (BEAKER) (test 24 meq/L 22-29 code = 355) BLOOD UREA NITROGEN 42 mg/dL 7-21 H (BEAKER) (test code = 354) CREATININE (BEAKER) 1.64 mg/dL 0.57-1.25 H (test code = 358) GLUCOSE RANDOM 162 mg/dL 70-105 H (BEAKER) (test code = 652) CALCIUM (BEAKER) 8.1 mg/dL 8.4-10.2 L (test code = 697) EGFR (BEAKER) (test 32 mL/min/1.73 ESTIMA HINA GFR IS code = 1092) sq m NOT ACCURATE CREATININE CLEARANCE IN PREDICTING GLOMERULAR FILTRATION RATE . ESTIMATED GFR I S NOT APPLICABLE FOR DIALYSIS PATIEN TS. CBC (HEMOGRAM ONLY)2017-06-01 04:30:00 Test Item Value Reference Range Interpretation Comments WHITE BLOOD CELL COUNT (BEAKER) 6.4 K/ L 3.5-10.5 (test code = 775) RED BLOOD CELL COUNT (BEAKER) 3.38 M/ L 3.93-5.22 L (test code = 761) HEMOGLOBIN (BEAKER) (test code = 8.7 GM/DL 11.2-15.7 L 410) HEMATOCRIT (BEAKER) (test code = 28.2 % 34.1-44.9 L 411) MEAN CORPUSCULAR VOLUME (BEAKER) 83.4 fL 79.4-94.8 (test code = 753) MEAN CORPUSCULAR HEMOGLOBIN 25.7 pg 25.6-32.2 (BEAKER) (test code = 751) MEAN CORPUSCULAR HEMOGLOBIN CONC 30.9 GM/DL 32.2-35.5 L (BEAKER) (test code = 752) RED CELL DISTRIBUTION WIDTH 15.2 % 11.7-14.4 H (BEAKER) (test code = 412) PLATELET COUNT (BEAKER) (test 320 K/CU MM 150-450 code = 756) MEAN PLATELET VOLUME (BEAKER) 9.5 fL 9.4-12.3 (test code = 754) NUCLEATED RED BLOOD CELLS 0 /100 WBC 0-0 (BEAKER) (test code = 413) POCT-GLUCOSE [id number] 21:23:00 Test Item Value Reference Range Interpretation Comments POC-GLUCOSE METER 240 mg/dL 70-110 H TESTED AT [place] [address] ([facility]) (test code = [facility] 1538) [address] POCT-GLUCOSE [id number] 16:42:00 Test Item Value Reference Range Interpretation Comments POC-GLUCOSE METER 234 mg/dL 70-110 H TESTED AT [place] [address] ([facility]) (test code = [facility] 1538) [address] POCT-GLUCOSE [id number] 13:22:00 Test Item Value Reference Range Interpretation Comments POC-GLUCOSE METER 166 mg/dL 70-110 H TESTED AT [place] [address] ([facility]) (test code = [facility] 1538) [address] RAD, CHEST, 1 VIEW, NON [id number] 09:43:00Reason for exam:->s/p ACBShould this be performed [...] Ring MDReport Verified Date/Time: 05/31/2017 09:43:30 ReadingLocation: [facility] B1 [id number] Ortho Consult Reading Room POCT-GLUCOSE [id number] 06:57:00 Test Item Value Reference Range Interpretation Comments POC-GLUCOSE METER 136 mg/dL 70-110 H TESTED AT [facility] 6720 (BEAKER) (test code = [place] 1538) [address] CALCIUM, [id number] 06:41:00 Test Item Value Reference Range Interpretation Comments CALCIUM IONIZED (BEAKER) (test 1.10 mmol/L 1.12-1.27 L code = 698) PH, BLOOD (BEAKER) (test code = 7.42 1810) [id number] 06:17:00 Test Item Value Reference Range Interpretation Comments PHOSPHORUS (BEAKER) (test code = 3.3 mg/dL 2.3-4.7 604) [id number] 06:17:00 Test Item Value Reference Range Interpretation Comments MAGNESIUM (BEAKER) (test code = 1.8 mg/dL 1.6-2.6 627) BASIC METABOLIC [id number] 06:17:00 Test Item Value Reference Range Interpretation Comments SODIUM (BEAKER) 131 meq/L 136-145 L (test code = 381) POTASSIUM (BEAKER) 4.5 meq/L 3.5-5.1 (test code = 379) CHLORIDE (BEAKER) 103 meq/L 98-107 (test code = 382) CO2 (BEAKER) (test 21 meq/L 22-29 L code = 355) BLOOD UREA NITROGEN 43 mg/dL 7-21 H (BEAKER) (test code = 354) CREATININE (BEAKER) 1.74 mg/dL 0.57-1.25 H (test code = 358) GLUCOSE RANDOM 126 mg/dL 70-105 H (BEAKER) (test code = 652) CALCIUM (BEAKER) 8.1 mg/dL 8.4-10.2 L (test code = 697) EGFR (BEAKER) (test 30 mL/min/1.73 ESTIMA HINA GFR IS code = 1092) sq m NOT ACCURATE CREATININE CLEARANCE IN PREDICTING GLOMERULAR FILTRATION RATE . ESTIMATED GFR I S NOT APPLICABLE FOR DIALYSIS PATIEN TS. CBC W/PLT COUNT & AUTO [id number] 05:07:00 Test Item Value Reference Range Interpretation Comments WHITE BLOOD CELL COUNT (BEAKER) 5.9 K/ L 3.5-10.5 (test code = 775) RED BLOOD CELL COUNT (BEAKER) 3.16 M/ L 3.93-5.22 L (test code = 761) HEMOGLOBIN (BEAKER) (test code = 8.2 GM/DL 11.2-15.7 L 410) HEMATOCRIT (BEAKER) (test code = 26.6 % 34.1-44.9 L 411) MEAN CORPUSCULAR VOLUME (BEAKER) 84.2 fL 79.4-94.8 (test code = 753) MEAN CORPUSCULAR HEMOGLOBIN 25.9 pg 25.6-32.2 (BEAKER) (test code = 751) MEAN CORPUSCULAR HEMOGLOBIN CONC 30.8 GM/DL 32.2-35.5 L (BEAKER) (test code = 752) RED CELL DISTRIBUTION WIDTH 15.1 % 11.7-14.4 H (BEAKER) (test code = 412) PLATELET COUNT (BEAKER) (test 320 K/CU MM 150-450 code = 756) MEAN PLATELET VOLUME (BEAKER) 9.6 fL 9.4-12.3 (test code = 754) NUCLEATED RED BLOOD CELLS 0 /100 WBC 0-0 (BEAKER) (test code = 413) NEUTROPHILS RELATIVE PERCENT 65 % (BEAKER) (test code = 429) LYMPHOCYTES RELATIVE PERCENT 24 % (BEAKER) (test code = 430) MONOCYTES RELATIVE PERCENT 8 % (BEAKER) (test code = 431) EOSINOPHILS RELATIVE PERCENT 2 % (BEAKER) (test code = 432) BASOPHILS RELATIVE PERCENT 1 % (BEAKER) (test code = 437) NEUTROPHILS ABSOLUTE COUNT 3.84 K/ L 1.56-6.13 (BEAKER) (test code = 670) LYMPHOCYTES ABSOLUTE COUNT 1.41 K/ L 1.18-3.74 (AKER) (test code = 414) MONOCYTES ABSOLUTE COUNT (BEAKER) 0.47 K/ L 0.24-0.36 H (test code = 415) EOSINOPHILS ABSOLUTE COUNT 0.11 K/ L 0.04-0.36 (AKER) (test code = 416) BASOPHILS ABSOLUTE COUNT (AKER) 0.05 K/ L 0.01-0.08 (test code = 417) IMMATURE GRANULOCYTES-RELATIVE 1 % 0-1 PERCENT ([facility]) (test code = 2801) POCT-GLUCOSE [id number] 20:56:00 Test Item Value Reference Range Interpretation Comments POC-GLUCOSE METER 196 mg/dL 70-110 H TESTED AT [place] [address] ([facility]) (test code = [facility] 1538) [id number] POCT-GLUCOSE [id number] 16:42:00 Test Item Value Reference Range Interpretation Comments POC-GLUCOSE METER 196 mg/dL 70-110 H TESTED AT [place] [address] ([facility]) (test code = [facility] 1538) [id number] POCT-GLUCOSE [id number] 11:45:00 Test Item Value Reference Range Interpretation Comments POC-GLUCOSE METER 215 mg/dL 70-110 H TESTED AT [place] [address] ([facility]) (test code = [facility] 1538) [address] RAD, CHEST, 1 VIEW, NON [id number] 11:15:00Reason for exam:->s/p ACBShould this be performed at the bedside?->YesFINAL REPORT Chest one view compared to May 28, 2017 Discussion: Airspace opacities are seen in both lower lung regions, probably atelectasis. Correlate clinically for infection. I could not exclude small effusions. No pneumothorax. Upper lungs clear. Signed: Jeannette Nava Verified Date/Time: 05/30/2017 11:15:07 Reading Location: [facility] Radiology Reading Room CALCIUM, [id number] 09:21:00 Test Item Value Reference Range Interpretation Comments CALCIUM IONIZED (BEAKER) (test 1.11 mmol/L 1.12-1.27 L code = 698) PH, BLOOD (BEAKER) (test code = 7.36 1810) BASIC METABOLIC [id number] 07:37:00 Test Item Value Reference Range Interpretation Comments SODIUM (BEAKER) 135 meq/L 136-145 L (test code = 381) POTASSIUM (BEAKER) 4.9 meq/L 3.5-5.1 (test code = 379) CHLORIDE (BEAKER) 105 meq/L 98-107 (test code = 382) CO2 (BEAKER) (test 25 meq/L 22-29 code = 355) BLOOD UREA NITROGEN 44 mg/dL 7-21 H (BEAKER) (test code = 354) CREATININE (BEAKER) 1.76 mg/dL 0.57-1.25 H (test code = 358) GLUCOSE RANDOM 136 mg/dL 70-105 H (BEAKER) (test code = 652) CALCIUM (BEAKER) 8.2 mg/dL 8.4-10.2 L (test code = 697) EGFR (BEAKER) (test 29 mL/min/1.73 ESTIMA HINA GFR IS code = 1092) sq m NOT ACCURATE CREATININE CLEARANCE IN PREDICTING GLOMERULAR FILTRATION RATE . ESTIMATED GFR I S NOT APPLICABLE FOR DIALYSIS PATIEN TS. [id number] 07:28:00 Test Item Value Reference Range Interpretation Comments PHOSPHORUS (BEAKER) (test code = 3.8 mg/dL 2.3-4.7 604) [id number] 07:28:00 Test Item Value Reference Range Interpretation Comments MAGNESIUM (BEAKER) (test code = 1.9 mg/dL 1.6-2.6 627) CBC W/PLT COUNT & AUTO [id number] 07:26:00 Test Item Value Reference Range Interpretation Comments WHITE BLOOD CELL COUNT (BEAKER) 6.3 K/ L 3.5-10.5 (test code = 775) RED BLOOD CELL COUNT (BEAKER) 3.32 M/ L 3.93-5.22 L (test code = 761) HEMOGLOBIN (BEAKER) (test code = 8.5 GM/DL 11.2-15.7 L 410) HEMATOCRIT (BEAKER) (test code = 27.8 % 34.1-44.9 L 411) MEAN CORPUSCULAR VOLUME (BEAKER) 83.7 fL 79.4-94.8 (test code = 753) MEAN CORPUSCULAR HEMOGLOBIN 25.6 pg 25.6-32.2 (BEAKER) (test code = 751) MEAN CORPUSCULAR HEMOGLOBIN CONC 30.6 GM/DL 32.2-35.5 L (BEAKER) (test code = 752) RED CELL DISTRIBUTION WIDTH 15.0 % 11.7-14.4 H (BEAKER) (test code = 412) PLATELET COUNT (BEAKER) (test 336 K/CU MM 150-450 code = 756) MEAN PLATELET VOLUME (BEAKER) 9.8 fL 9.4-12.3 (test code = 754) NUCLEATED RED BLOOD CELLS 0 /100 WBC 0-0 (BEAKER) (test code = 413) NEUTROPHILS RELATIVE PERCENT 65 % (BEAKER) (test code = 429) LYMPHOCYTES RELATIVE PERCENT 24 % (BEAKER) (test code = 430) MONOCYTES RELATIVE PERCENT 7 % (BEAKER) (test code = 431) EOSINOPHILS RELATIVE PERCENT 3 % (BEAKER) (test code = 432) BASOPHILS RELATIVE PERCENT 0 % (BEAKER) (test code = 437) NEUTROPHILS ABSOLUTE COUNT 4.13 K/ L 1.56-6.13 (BEAKER) (test code = 670) LYMPHOCYTES ABSOLUTE COUNT 1.50 K/ L 1.18-3.74 (BEAKER) (test code = 414) MONOCYTES ABSOLUTE COUNT (BEAKER) 0.44 K/ L 0.24-0.36 H (test code = 415) EOSINOPHILS ABSOLUTE COUNT 0.20 K/ L 0.04-0.36 (BEAKER) (test code = 416) BASOPHILS ABSOLUTE COUNT (BEAKER) 0.02 K/ L 0.01-0.08 (test code = 417) IMMATURE GRANULOCYTES-RELATIVE 1 % 0-1 PERCENT (BEAKER) (test code = 2801) POCT-GLUCOSE [id number] 07:21:00 Test Item Value Reference Range Interpretation Comments POC-GLUCOSE METER 146 mg/dL 70-110 H TESTED AT [facility] 6720 (BEAKER) (test code = JULIANO REYEZ 1538) [id number] POCT-GLUCOSE [id number] 22:02:00 Test Item Value Reference Range Interpretation Comments POC-GLUCOSE METER 201 mg/dL 70-110 H TESTED AT [facility] 6720 (BEAKER) (test code = JULIANO Osborne [facility] 1538) [id number] POCT-GLUCOSE [id number] 18:27:00 Test Item Value Reference Range Interpretation Comments POC-GLUCOSE METER 240 mg/dL 70-110 H TESTED AT [place] [address] (BEAKER) (test code = JULIANO Osborne [facility] 1538) [id number] POCT-GLUCOSE [id number] 12:13:00 Test Item Value Reference Range Interpretation Comments POC-GLUCOSE METER 193 mg/dL 70-110 H TESTED AT [place] [address] (BEAKER) (test code = JULIANO Osborne [facility] 1538) [id number] POCT-GLUCOSE [id number] 09:02:00 Test Item Value Reference Range Interpretation Comments POC-GLUCOSE METER 132 mg/dL 70-110 H TESTED AT [place] [address] ([facility] ([facility] 1538) [id number] CALCIUM, [id number] 05:42:00 Test Item Value Reference Range Interpretation Comments CALCIUM IONIZED (BEAKER) (test 1.12 mmol/L 1.12-1.27 code = 698) PH, BLOOD (BEAKER) (test code = 7.34 1810) COMPREHENSIVE METABOLIC [id number] 05:33:00 Test Item Value Reference Range Interpretation Comments TOTAL PROTEIN 5.9 gm/dL 6.0-8.3 L (BEAKER) (test code = 770) ALBUMIN (BEAKER) 2.7 g/dL 3.5-5.0 L (test code = 1145) ALKALINE PHOSPHATASE 130 U/L 40-150 (BEAKER) (test code = 346) BILIRUBIN TOTAL 0.3 mg/dL 0.2-1.2 (BEAKER) (test code = 377) SODIUM (BEAKER) (test 135 meq/L 136-145 L code = 381) POTASSIUM (BEAKER) 4.7 meq/L 3.5-5.1 (test code = 379) CHLORIDE (BEAKER) 105 meq/L 98-107 (test code = 382) CO2 (BEAKER) (test 24 meq/L 22-29 code = 355) BLOOD UREA NITROGEN 42 mg/dL 7-21 H (BEAKER) (test code = 354) CREATININE (BEAKER) 1.78 mg/dL 0.57-1.25 H (test code = 358) GLUCOSE RANDOM 129 mg/dL 70-105 H (BEAKER) (test code = 652) CALCIUM (BEAKER) 8.5 mg/dL 8.4-10.2 (test code = 697) AST (SGOT) (BEAKER) 23 U/L 5-34 (test code = 353) ALT (SGPT) (BEAKER) 15 U/L 6-55 (test code = 347) EGFR (BEAKER) (test 29 mL/min/1.73 ESTIMA HINA GFR IS code = 1092) sq m NOT ACCURATE CREATININE CLEARANCE IN PREDICTING GLOMERULAR FILTRATION RATE . ESTIMATED GFR I S NOT APPLICABLE FOR DIALYSIS PATIEN TS. [id number] 05:32:00 Test Item Value Reference Range Interpretation Comments PHOSPHORUS (BEAKER) (test code = 3.6 mg/dL 2.3-4.7 604) [id number] 05:32:00 Test Item Value Reference Range Interpretation Comments MAGNESIUM (BEAKER) (test code = 2.2 mg/dL 1.6-2.6 627) CBC W/PLT COUNT & AUTO [id number] 05:01:00 Test Item Value Reference Range Interpretation Comments WHITE BLOOD CELL COUNT (BEAKER) 6.4 K/ L 3.5-10.5 (test code = 775) RED BLOOD CELL COUNT (BEAKER) 3.43 M/ L 3.93-5.22 L (test code = 761) HEMOGLOBIN (BEAKER) (test code = 8.9 GM/DL 11.2-15.7 L 410) HEMATOCRIT (BEAKER) (test code = 28.9 % 34.1-44.9 L 411) MEAN CORPUSCULAR VOLUME (BEAKER) 84.3 fL 79.4-94.8 (test code = 753) MEAN CORPUSCULAR HEMOGLOBIN 25.9 pg 25.6-32.2 (BEAKER) (test code = 751) MEAN CORPUSCULAR HEMOGLOBIN CONC 30.8 GM/DL 32.2-35.5 L (BEAKER) (test code = 752) RED CELL DISTRIBUTION WIDTH 15.0 % 11.7-14.4 H (BEAKER) (test code = 412) PLATELET COUNT (BEAKER) (test 324 K/CU MM 150-450 code = 756) MEAN PLATELET VOLUME (BEAKER) 9.3 fL 9.4-12.3 L (test code = 754) NUCLEATED RED BLOOD CELLS 0 /100 WBC 0-0 (BEAKER) (test code = 413) NEUTROPHILS RELATIVE PERCENT 62 % (BEAKER) (test code = 429) LYMPHOCYTES RELATIVE PERCENT 25 % (BEAKER) (test code = 430) MONOCYTES RELATIVE PERCENT 8 % (BEAKER) (test code = 431) EOSINOPHILS RELATIVE PERCENT 4 % (BEAKER) (test code = 432) BASOPHILS RELATIVE PERCENT 1 % (BEAKER) (test code = 437) NEUTROPHILS ABSOLUTE COUNT 3.93 K/ L 1.56-6.13 (BEAKER) (test code = 670) LYMPHOCYTES ABSOLUTE COUNT 1.60 K/ L 1.18-3.74 (BEAKER) (test code = 414) MONOCYTES ABSOLUTE COUNT (BEAKER) 0.51 K/ L 0.24-0.36 H (test code = 415) EOSINOPHILS ABSOLUTE COUNT 0.25 K/ L 0.04-0.36 (BEAKER) (test code = 416) BASOPHILS ABSOLUTE COUNT (BEAKER) 0.03 K/ L 0.01-0.08 (test code = 417) IMMATURE GRANULOCYTES-RELATIVE 1 % 0-1 PERCENT (BEAKER) (test code = 2801) POCT-GLUCOSE [id number] 21:04:00 Test Item Value Reference Range Interpretation Comments POC-GLUCOSE METER 165 mg/dL 70-110 H TESTED AT [facility] ([facility]) (test code = JULIANO Osborne [facility] 1538) [address] POCT-GLUCOSE [id number] 17:30:00 Test Item Value Reference Range Interpretation Comments POC-GLUCOSE METER 236 mg/dL 70-110 H TESTED AT [facility] [address] ([facility]) (test code = [facility] 1538) [address] RAD, CHEST, 1 VIEW, NON [id number] 13:53:00Reason for exam:->assess for ill-defined opacityShould this [...] MDReport Verified Date/Time: 05/28/2017 13:53:03 Reading Location: [address] Radiology Reading Room POCT-GLUCOSE [id number] 11:53:00 Test Item Value Reference Range Interpretation Comments POC-GLUCOSE METER 215 mg/dL 70-110 H TESTED AT [place] [address] (BEAKER) (test code = [facility] 1538) [id number] POCT-GLUCOSE [id number] 08:32:00 Test Item Value Reference Range Interpretation Comments POC-GLUCOSE METER 168 mg/dL 70-110 H TESTED AT [place] [address] (BEAKER) (test code = [facility] 1538) [address] CALCIUM, [id number] 05:44:00 Test Item Value Reference Range Interpretation Comments CALCIUM IONIZED (BEAKER) (test 1.09 mmol/L 1.12-1.27 L code = 698) PH, BLOOD (BEAKER) (test code = 7.38 1810) [id number] 05:44:00 Test Item Value Reference Range Interpretation Comments PHOSPHORUS (BEAKER) (test code = 3.5 mg/dL 2.3-4.7 604) [id number] 05:44:00 Test Item Value Reference Range Interpretation Comments MAGNESIUM (BEAKER) (test code = 1.9 mg/dL 1.6-2.6 627) BASIC METABOLIC [id number] 05:44:00 Test Item Value Reference Range Interpretation Comments SODIUM (BEAKER) 137 meq/L 136-145 (test code = 381) POTASSIUM (BEAKER) 4.5 meq/L 3.5-5.1 (test code = 379) CHLORIDE (BEAKER) 108 meq/L 98-107 H (test code = 382) CO2 (BEAKER) (test 23 meq/L 22-29 code = 355) BLOOD UREA NITROGEN 41 mg/dL 7-21 H (BEAKER) (test code = 354) CREATININE (BEAKER) 1.41 mg/dL 0.57-1.25 H (test code = 358) GLUCOSE RANDOM 113 mg/dL 70-105 H (BEAKER) (test code = 652) CALCIUM (BEAKER) 8.1 mg/dL 8.4-10.2 L (test code = 697) EGFR (BEAKER) (test 38 mL/min/1.73 ESTIMA HINA GFR IS code = 1092) sq m NOT ACCURATE CREATININE CLEARANCE IN PREDICTING GLOMERULAR FILTRATION RATE . ESTIMATED GFR I S NOT APPLICABLE FOR DIALYSIS PATIEN TS. CBC W/PLT COUNT & AUTO [id number] 05:05:00 Test Item Value Reference Range Interpretation Comments WHITE BLOOD CELL COUNT (BEAKER) 6.3 K/ L 3.5-10.5 (test code = 775) RED BLOOD CELL COUNT (BEAKER) 3.40 M/ L 3.93-5.22 L (test code = 761) HEMOGLOBIN (BEAKER) (test code = 8.8 GM/DL 11.2-15.7 L 410) HEMATOCRIT (BEAKER) (test code = 29.0 % 34.1-44.9 L 411) MEAN CORPUSCULAR VOLUME (BEAKER) 85.3 fL 79.4-94.8 (test code = 753) MEAN CORPUSCULAR HEMOGLOBIN 25.9 pg 25.6-32.2 (BEAKER) (test code = 751) MEAN CORPUSCULAR HEMOGLOBIN CONC 30.3 GM/DL 32.2-35.5 L (BEAKER) (test code = 752) RED CELL DISTRIBUTION WIDTH 14.9 % 11.7-14.4 H (BEAKER) (test code = 412) PLATELET COUNT (BEAKER) (test 282 K/CU MM 150-450 code = 756) MEAN PLATELET VOLUME (BEAKER) 9.5 fL 9.4-12.3 (test code = 754) NUCLEATED RED BLOOD CELLS 0 /100 WBC 0-0 (BEAKER) (test code = 413) NEUTROPHILS RELATIVE PERCENT 59 % (BEAKER) (test code = 429) LYMPHOCYTES RELATIVE PERCENT 28 % (BEAKER) (test code = 430) MONOCYTES RELATIVE PERCENT 7 % (BEAKER) (test code = 431) EOSINOPHILS RELATIVE PERCENT 4 % (BEAKER) (test code = 432) BASOPHILS RELATIVE PERCENT 1 % (BEAKER) (test code = 437) NEUTROPHILS ABSOLUTE COUNT 3.75 K/ L 1.56-6.13 (BEAKER) (test code = 670) LYMPHOCYTES ABSOLUTE COUNT 1.80 K/ L 1.18-3.74 (BEAKER) (test code = 414) MONOCYTES ABSOLUTE COUNT (BEAKER) 0.45 K/ L 0.24-0.36 H (test code = 415) EOSINOPHILS ABSOLUTE COUNT 0.25 K/ L 0.04-0.36 (BEAKER) (test code = 416) BASOPHILS ABSOLUTE COUNT (BEAKER) 0.05 K/ L 0.01-0.08 (test code = 417) IMMATURE GRANULOCYTES-RELATIVE 1 % 0-1 PERCENT (BEAKER) (test code = 2801) POCT-GLUCOSE [id number] 21:03:00 Test Item Value Reference Range Interpretation Comments POC-GLUCOSE METER 173 mg/dL 70-110 H TESTED AT [place] [address] ([facility]) (test code = JULIANO Osborne [facility] 1538) [id number] 18:15:00 Test Item Value Reference Range Interpretation Comments ACTIVATED CLOTTING TIME 147 sec TEST ED AT [place] [address] ([facility]) (test code = [facility] Dylon [facility] 441) [address] [id number] 18:15:00 Test Item Value Reference Range Interpretation Comments ACTIVATED CLOTTING TIME 246 sec TEST ED AT [place] [address] ([facility]) (test code = [facility] [place] [address]) [address] POCT-GLUCOSE [id number] 12:39:00 Test Item Value Reference Range Interpretation Comments POC-GLUCOSE METER 219 mg/dL 70-110 H TESTED AT [place] [address] ([facility]) (test code = [facility] 1538) [address] RAD, CHEST, 1 VIEW, NON [id number] 10:11:00Reason for exam:->pl effusionShould this be performed at the bedside?->YesFINAL REPORT Chest one view compared to May 26 Discussion: There is cardiac prominence. Upper lungs are clear. Ill-defined basilar densities are similar probably atelectasis. No gross effusion or pneumothorax with bilateral chest tubes in place. Signed: Jeannette Navaeport Verified Date/Time: 05/27/2017 10:11:44 Reading Location: [facility] Rad[facility] Reading Room POCT-GLUCOSE METER 2017-05-27 07:05:00 Test Item Value Reference Range Interpretation Comments POC-GLUCOSE METER 167 mg/dL 70-110 H TESTED AT [facility] 67[address] (BEAKER) (test code = JULIANO [place] 1538) [address] CALCIUM, [id number] 06:20:00 Test Item Value Reference Range Interpretation Comments CALCIUM IONIZED (BEAKER) (test 0.98 mmol/L 1.12-1.27 L code = 698) PH, BLOOD (BEAKER) (test code = 7.50 1810) [id number] 04:56:00 Test Item Value Reference Range Interpretation Comments PHOSPHORUS (BEAKER) (test code = 2.6 mg/dL 2.3-4.7 604) [id number] 04:56:00 Test Item Value Reference Range Interpretation Comments MAGNESIUM (BEAKER) (test code = 2.0 mg/dL 1.6-2.6 627) BASIC METABOLIC [id number] 04:56:00 Test Item Value Reference Range Interpretation Comments SODIUM (BEAKER) 135 meq/L 136-145 L (test code = 381) POTASSIUM (BEAKER) 4.5 meq/L 3.5-5.1 (test code = 379) CHLORIDE (BEAKER) 105 meq/L 98-107 (test code = 382) CO2 (BEAKER) (test 22 meq/L 22-29 code = 355) BLOOD UREA NITROGEN 47 mg/dL 7-21 H (BEAKER) (test code = 354) CREATININE (BEAKER) 1.44 mg/dL 0.57-1.25 H (test code = 358) GLUCOSE RANDOM 177 mg/dL 70-105 H (BEAKER) (test code = 652) CALCIUM (BEAKER) 8.0 mg/dL 8.4-10.2 L (test code = 697) EGFR (BEAKER) (test 37 mL/min/1.73 ESTIMA HINA GFR IS code = 1092) sq m NOT ACCURATE CREATININE CLEARANCE IN PREDICTING GLOMERULAR FILTRATION RATE . ESTIMATED GFR I S NOT APPLICABLE FOR DIALYSIS PATIEN TS. CBC W/PLT COUNT & AUTO [id number] 04:36:00 Test Item Value Reference Range Interpretation Comments WHITE BLOOD CELL COUNT (BEAKER) 6.1 K/ L 3.5-10.5 (test code = 775) RED BLOOD CELL COUNT (BEAKER) 3.35 M/ L 3.93-5.22 L (test code = 761) HEMOGLOBIN (BEAKER) (test code = 8.6 GM/DL 11.2-15.7 L 410) HEMATOCRIT (BEAKER) (test code = 28.0 % 34.1-44.9 L 411) MEAN CORPUSCULAR VOLUME (BEAKER) 83.6 fL 79.4-94.8 (test code = 753) MEAN CORPUSCULAR HEMOGLOBIN 25.7 pg 25.6-32.2 (BEAKER) (test code = 751) MEAN CORPUSCULAR HEMOGLOBIN CONC 30.7 GM/DL 32.2-35.5 L (BEAKER) (test code = 752) RED CELL DISTRIBUTION WIDTH 14.7 % 11.7-14.4 H (BEAKER) (test code = 412) PLATELET COUNT (BEAKER) (test 280 K/CU MM 150-450 code = 756) MEAN PLATELET VOLUME (BEAKER) 9.9 fL 9.4-12.3 (test code = 754) NUCLEATED RED BLOOD CELLS 0 /100 WBC 0-0 (BEAKER) (test code = 413) NEUTROPHILS RELATIVE PERCENT 65 % (BEAKER) (test code = 429) LYMPHOCYTES RELATIVE PERCENT 23 % (BEAKER) (test code = 430) MONOCYTES RELATIVE PERCENT 7 % (BEAKER) (test code = 431) EOSINOPHILS RELATIVE PERCENT 4 % (BEAKER) (test code = 432) BASOPHILS RELATIVE PERCENT 1 % (BEAKER) (test code = 437) NEUTROPHILS ABSOLUTE COUNT 3.97 K/ L 1.56-6.13 (BEAKER) (test code = 670) LYMPHOCYTES ABSOLUTE COUNT 1.41 K/ L 1.18-3.74 (BEAKER) (test code = 414) MONOCYTES ABSOLUTE COUNT (BEAKER) 0.44 K/ L 0.24-0.36 H (test code = 415) EOSINOPHILS ABSOLUTE COUNT 0.22 K/ L 0.04-0.36 ([facility]) (test code = 416) BASOPHILS ABSOLUTE COUNT ([facility]) 0.05 K/ L 0.01-0.08 (test code = 417) IMMATURE GRANULOCYTES-RELATIVE 1 % 0-1 PERCENT ([facility]) (test code = 2801) POCT-GLUCOSE [id number] 21:29:00 Test Item Value Reference Range Interpretation Comments POC-GLUCOSE METER 147 mg/dL 70-110 H TESTED AT [place] [address] ([facility]) (test code = [facility] 1538) [address] POCT-GLUCOSE [id number] 17:51:00 Test Item Value Reference Range Interpretation Comments POC-GLUCOSE METER 224 mg/dL 70-110 H TESTED AT [place] [address] ([facility]) (test code = [facility] 1538) [address] POCT-GLUCOSE [id number] 13:53:00 Test Item Value Reference Range Interpretation Comments POC-GLUCOSE METER 182 mg/dL 70-110 H TESTED AT [place] [address] ([facility]) (test code = [facility] 1538) [address] RAD, CHEST, 1 VIEW, NON [id number] 08:44:00Reason for exam:->pl effusionShould this be performed [...] nasogastric tube. No other significant change. Signed: Olaf Ramirezepemily Verified Date/Time: 05/26/2017 08:44:25 Reading Location: [address] Radiology Reading Room POCT- GLUCOSE [id number] 07:43:00 Test Item Value Reference Range Interpretation Comments POC-GLUCOSE METER 113 mg/dL 70-110 H TESTED AT [facility] [address] (BEAKER) (test code = JULIANO [place] 1538) [address] CALCIUM, [id number] 06:31:00 Test Item Value Reference Range Interpretation Comments CALCIUM IONIZED (BEAKER) (test 1.07 mmol/L 1.12-1.27 L code = 698) PH, BLOOD (BEAKER) (test code = 7.38 1810) [id number] 04:51:00 Test Item Value Reference Range Interpretation Comments PHOSPHORUS (BEAKER) (test code = 3.2 mg/dL 2.3-4.7 604) [id number] 04:51:00 Test Item Value Reference Range Interpretation Comments MAGNESIUM (BEAKER) (test code = 2.1 mg/dL 1.6-2.6 627) BASIC METABOLIC [id number] 04:51:00 Test Item Value Reference Range Interpretation Comments SODIUM (BEAKER) 139 meq/L 136-145 (test code = 381) POTASSIUM (BEAKER) 4.1 meq/L 3.5-5.1 (test code = 379) CHLORIDE (BEAKER) 106 meq/L 98-107 (test code = 382) CO2 (BEAKER) (test 24 meq/L 22-29 code = 355) BLOOD UREA NITROGEN 52 mg/dL 7-21 H (BEAKER) (test code = 354) CREATININE (BEAKER) 1.52 mg/dL 0.57-1.25 H (test code = 358) GLUCOSE RANDOM 108 mg/dL 70-105 H (BEAKER) (test code = 652) CALCIUM (BEAKER) 8.4 mg/dL 8.4-10.2 (test code = 697) EGFR (BEAKER) (test 35 mL/min/1.73 ESTIMA HINA GFR IS code = 1092) sq m NOT ACCURATE CREATININE CLEARANCE IN PREDICTING GLOMERULAR FILTRATION RATE . ESTIMATED GFR I S NOT APPLICABLE FOR DIALYSIS PATIEN TS. CBC W/PLT COUNT & AUTO [id number] 04:27:00 Test Item Value Reference Range Interpretation Comments WHITE BLOOD CELL COUNT (BEAKER) 7.2 K/ L 3.5-10.5 (test code = 775) RED BLOOD CELL COUNT (BEAKER) 3.53 M/ L 3.93-5.22 L (test code = 761) HEMOGLOBIN (BEAKER) (test code = 9.1 GM/DL 11.2-15.7 L 410) HEMATOCRIT (BEAKER) (test code = 29.5 % 34.1-44.9 L 411) MEAN CORPUSCULAR VOLUME (BEAKER) 83.6 fL 79.4-94.8 (test code = 753) MEAN CORPUSCULAR HEMOGLOBIN 25.8 pg 25.6-32.2 (BEAKER) (test code = 751) MEAN CORPUSCULAR HEMOGLOBIN CONC 30.8 GM/DL 32.2-35.5 L (BEAKER) (test code = 752) RED CELL DISTRIBUTION WIDTH 14.6 % 11.7-14.4 H (BEAKER) (test code = 412) PLATELET COUNT (BEAKER) (test 296 K/CU MM 150-450 code = 756) MEAN PLATELET VOLUME (BEAKER) 9.5 fL 9.4-12.3 (test code = 754) NUCLEATED RED BLOOD CELLS 0 /100 WBC 0-0 (BEAKER) (test code = 413) NEUTROPHILS RELATIVE PERCENT 67 % (BEAKER) (test code = 429) LYMPHOCYTES RELATIVE PERCENT 21 % (BEAKER) (test code = 430) MONOCYTES RELATIVE PERCENT 7 % (BEAKER) (test code = 431) EOSINOPHILS RELATIVE PERCENT 4 % (BEAKER) (test code = 432) BASOPHILS RELATIVE PERCENT 1 % (BEAKER) (test code = 437) NEUTROPHILS ABSOLUTE COUNT 4.79 K/ L 1.56-6.13 (BEAKER) (test code = 670) LYMPHOCYTES ABSOLUTE COUNT 1.49 K/ L 1.18-3.74 (BEAKER) (test code = 414) MONOCYTES ABSOLUTE COUNT (BEAKER) 0.50 K/ L 0.24-0.36 H (test code = 415) EOSINOPHILS ABSOLUTE COUNT 0.30 K/ L 0.04-0.36 (BEAKER) (test code = 416) BASOPHILS ABSOLUTE COUNT (BEAKER) 0.05 K/ L 0.01-0.08 (test code = 417) IMMATURE GRANULOCYTES-RELATIVE 0 % 0-1 PERCENT (BEAKER) (test code = 2801) POCT-GLUCOSE [id number] 23:48:00 Test Item Value Reference Range Interpretation Comments POC-GLUCOSE METER 123 mg/dL 70-110 H TESTED AT [facility] 67[address] (BEAKER) (test code = JULIANO Osborne [place] 1538) [address] POCT-GLUCOSE [id number] 16:46:00 Test Item Value Reference Range Interpretation Comments POC-GLUCOSE METER 178 mg/dL 70-110 H TESTED AT [facility] 6720 (BEAKER) (test code = JULIANO Osborne [place] 1538) [address] BASIC METABOLIC [id number] 05:53:00 Test Item Value Reference Range Interpretation Comments SODIUM (BEAKER) 139 meq/L 136-145 (test code = 381) POTASSIUM (BEAKER) 3.9 meq/L 3.5-5.1 (test code = 379) CHLORIDE (BEAKER) 106 meq/L 98-107 (test code = 382) CO2 (BEAKER) (test 23 meq/L 22-29 code = 355) BLOOD UREA NITROGEN 62 mg/dL 7-21 H (BEAKER) (test code = 354) CREATININE (BEAKER) 2.05 mg/dL 0.57-1.25 H (test code = 358) GLUCOSE RANDOM 87 mg/dL 70-105 (BEAKER) (test code = 652) CALCIUM (BEAKER) 7.9 mg/dL 8.4-10.2 L (test code = 697) EGFR (BEAKER) (test 25 mL/min/1.73 ESTIMA HINA GFR IS code = 1092) sq m NOT ACCURATE CREATININE CLEARANCE IN PREDICTING GLOMERULAR FILTRATION RATE . ESTIMATED GFR I S NOT APPLICABLE FOR DIALYSIS PATIEN TS. [id number] 05:52:00 Test Item Value Reference Range Interpretation Comments PHOSPHORUS (BEAKER) (test code = 4.2 mg/dL 2.3-4.7 604) [id number] 05:52:00 Test Item Value Reference Range Interpretation Comments MAGNESIUM (BEAKER) (test code = 2.3 mg/dL 1.6-2.6 627) CALCIUM, [id number] 05:27:00 Test Item Value Reference Range Interpretation Comments CALCIUM IONIZED (BEAKER) (test 1.12 mmol/L 1.12-1.27 code = 698) PH, BLOOD (BEAKER) (test code = 7.38 1810) CBC W/PLT COUNT & AUTO [id number] 05:07:00 Test Item Value Reference Range Interpretation Comments WHITE BLOOD CELL COUNT (BEAKER) 8.4 K/ L 3.5-10.5 (test code = 775) RED BLOOD CELL COUNT (BEAKER) 3.16 M/ L 3.93-5.22 L (test code = 761) HEMOGLOBIN (BEAKER) (test code = 8.2 GM/DL 11.2-15.7 L 410) HEMATOCRIT (BEAKER) (test code = 26.5 % 34.1-44.9 L 411) MEAN CORPUSCULAR VOLUME (BEAKER) 83.9 fL 79.4-94.8 (test code = 753) MEAN CORPUSCULAR HEMOGLOBIN 25.9 pg 25.6-32.2 (BEAKER) (test code = 751) MEAN CORPUSCULAR HEMOGLOBIN CONC 30.9 GM/DL 32.2-35.5 L (BEAKER) (test code = 752) RED CELL DISTRIBUTION WIDTH 14.6 % 11.7-14.4 H (BEAKER) (test code = 412) PLATELET COUNT (BEAKER) (test 256 K/CU MM 150-450 code = 756) MEAN PLATELET VOLUME (BEAKER) 10.0 fL 9.4-12.3 (test code = 754) NUCLEATED RED BLOOD CELLS 0 /100 WBC 0-0 (BEAKER) (test code = 413) NEUTROPHILS RELATIVE PERCENT 63 % (BEAKER) (test code = 429) LYMPHOCYTES RELATIVE PERCENT 25 % (BEAKER) (test code = 430) MONOCYTES RELATIVE PERCENT 8 % (BEAKER) (test code = 431) EOSINOPHILS RELATIVE PERCENT 3 % (BEAKER) (test code = 432) BASOPHILS RELATIVE PERCENT 1 % (BEAKER) (test code = 437) NEUTROPHILS ABSOLUTE COUNT 5.27 K/ L 1.56-6.13 (BEAKER) (test code = 670) LYMPHOCYTES ABSOLUTE COUNT 2.09 K/ L 1.18-3.74 (BEAKER) (test code = 414) MONOCYTES ABSOLUTE COUNT (BEAKER) 0.63 K/ L 0.24-0.36 H (test code = 415) EOSINOPHILS ABSOLUTE COUNT 0.27 K/ L 0.04-0.36 (BEAKER) (test code = 416) BASOPHILS ABSOLUTE COUNT (BEAKER) 0.05 K/ L 0.01-0.08 (test code = 417) IMMATURE GRANULOCYTES-RELATIVE 1 % 0-1 PERCENT ([facility]) (test code = 2801) RAD, CHEST, 1 VIEW, NON [id number] 04:45:00Reason for exam:->pl effusionShould this be performed at the bedside?->YesFINAL REPORT RAD, CHEST, 1 VIEW, NON DEPT INDICATION: pl effusion COMPARISON:Prior day's exam FINDINGS: Portable frontal view of the chest. IMPRESSION: Support Lines: Stable.Lungs and pleura: Unchanged airspace and pleural opacities. No pneumothorax.Heart and mediastinum: Stable contours. Stable surgical changes.Additional findings: None. Signed: JR Boswell Robert MDReport Verified Date/Time: 05/25/2017 04:45:08 Reading Location: [place] [id number] CT Body Reading Room POCT-GLUCOSE [id number] 01:52:00 Test Item Value Reference Range Interpretation Comments POC-GLUCOSE METER 126 mg/dL 70-110 H TESTED AT [place] [address] ([facility]) (test code = JULIANO Osborne [facility] 1538) [address] POCT-GLUCOSE [id number] 13:07:00 Test Item Value Reference Range Interpretation Comments POC-GLUCOSE METER 118 mg/dL 70-110 H TESTED AT [place] [address] ([facility]) (test code = JULIANO Osborne [facility] 1538) [id number] BRONCHIAL CULTURE + GRAM [id number] 11:35:00 Test Item Value Reference Range Interpretation Comments CULTURE ([facility]) (test code = 1095) Amikacin (test code = Susceptible 0-16 S 1) , Resistant <0 or >16 Aztreonam (test code = Susceptible 0-8 R 32) , Resistant <0 or >8 Cefepime (test code = Susceptible 0-8 S 51) , Resistant <0 or >8 Ceftazidime (test code Susceptible 0-8 S = 27) , Resistant <0 or >8 Ciprofloxacin (test Susceptible 0-1 S code = 7) , Resistant <0 or >1 Gentamicin (test code Susceptible 0-4 S = 18) , Resistant <0 or >4 Imipenem (test code = Susceptible 0-4 S 19) , Resistant <0 or >4 Levofloxacin (test Susceptible 0-2 S code = 22) , Resistant <0 or >2 Meropenem (test code = Susceptible 0-4 S 34) , Resistant <0 or >4 Piperacillin + Susceptible 0-16 S Tazobactam (test code , Resistant <0 = 29) or >16 Tobramycin (test code Susceptible 0-4 S = 25) , Resistant <0 or >4 Trimethoprim + Susceptible 0-40 S Sulfamethoxazole (test , Resistant <0 code = 47) or >40 CULTURE (BEAKER) (test A 4+ Harvey rdetella code = 1095) bronchiseptica GRAM STAIN RESULT 1+ WBCs (BEAKER) (test code = 1123) GRAM STAIN RESULT <1+ gram (BEAKER) (test code = positive 003254) cocci in pairs GRAM STAIN RESULT 1+ gram (BEAKER) (test code = variable rods 429452) 1+ Normal respiratory todd presentRAD, CHEST, 1 VIEW, NON [id number] 06:50:00Reason for exam:->pl effusionShould this be performed at the bedside?->YesFINAL REPORT RAD, CHEST, 1 VIEW, NON DEPT INDICATION: pl effusion COMPARISON:Prior day's exam FINDINGS: Portable frontal view of the chest. IMPRESSION: Support Lines: Stable.Lungs and pleura: Unchanged airspace and pleural opacities. No pneumothorax.Heart and mediastinum: Stable contours. Stable surgical changes.Additional findings: None. Signed: JR Boswell Robert MDReport Verified Date/Time: 05/24/2017 06:50:08 Reading Location: [facility] [id number] CT Body Reading Room BASIC METABOLIC [id number] 04:19:00 Test Item Value Reference Range Interpretation Comments SODIUM (BEAKER) 136 meq/L 136-145 (test code = 381) POTASSIUM (BEAKER) 4.3 meq/L 3.5-5.1 (test code = 379) CHLORIDE (BEAKER) 104 meq/L 98-107 (test code = 382) CO2 (BEAKER) (test 20 meq/L 22-29 L code = 355) BLOOD UREA NITROGEN 61 mg/dL 7-21 H (BEAKER) (test code = 354) CREATININE (BEAKER) 2.69 mg/dL 0.57-1.25 H (test code = 358) GLUCOSE RANDOM 107 mg/dL 70-105 H (BEAKER) (test code = 652) CALCIUM (BEAKER) 7.8 mg/dL 8.4-10.2 L (test code = 697) EGFR (BEAKER) (test 18 mL/min/1.73 ESTIMA HINA GFR IS code = 1092) sq m NOT ACCURATE CREATININE CLEARANCE IN PREDICTING GLOMERULAR FILTRATION RATE . ESTIMATED GFR I S NOT APPLICABLE FOR DIALYSIS PATIEN TS. CALCIUM, [id number] 04:16:00 Test Item Value Reference Range Interpretation Comments CALCIUM IONIZED (BEAKER) (test 1.06 mmol/L 1.12-1.27 L code = 698) PH, BLOOD (BEAKER) (test code = 7.40 1810) [id number] 04:11:00 Test Item Value Reference Range Interpretation Comments PHOSPHORUS (BEAKER) (test code = 6.0 mg/dL 2.3-4.7 H 604) [id number] 04:11:00 Test Item Value Reference Range Interpretation Comments MAGNESIUM (BEAKER) (test code = 2.4 mg/dL 1.6-2.6 627) CBC W/PLT COUNT & AUTO [id number] 03:50:00 Test Item Value Reference Range Interpretation Comments WHITE BLOOD CELL COUNT (BEAKER) 9.5 K/ L 3.5-10.5 (test code = 775) RED BLOOD CELL COUNT (BEAKER) 3.06 M/ L 3.93-5.22 L (test code = 761) HEMOGLOBIN (BEAKER) (test code = 7.9 GM/DL 11.2-15.7 L 410) HEMATOCRIT (BEAKER) (test code = 25.5 % 34.1-44.9 L 411) MEAN CORPUSCULAR VOLUME (BEAKER) 83.3 fL 79.4-94.8 (test code = 753) MEAN CORPUSCULAR HEMOGLOBIN 25.8 pg 25.6-32.2 (BEAKER) (test code = 751) MEAN CORPUSCULAR HEMOGLOBIN CONC 31.0 GM/DL 32.2-35.5 L (BEAKER) (test code = 752) RED CELL DISTRIBUTION WIDTH 15.1 % 11.7-14.4 H (BEAKER) (test code = 412) PLATELET COUNT (BEAKER) (test 224 K/CU MM 150-450 code = 756) MEAN PLATELET VOLUME (BEAKER) 10.5 fL 9.4-12.3 (test code = 754) NUCLEATED RED BLOOD CELLS 0 /100 WBC 0-0 (BEAKER) (test code = 413) NEUTROPHILS RELATIVE PERCENT 70 % (BEAKER) (test code = 429) LYMPHOCYTES RELATIVE PERCENT 21 % (BEAKER) (test code = 430) MONOCYTES RELATIVE PERCENT 7 % (BEAKER) (test code = 431) EOSINOPHILS RELATIVE PERCENT 2 % (BEAKER) (test code = 432) BASOPHILS RELATIVE PERCENT 0 % (BEAKER) (test code = 437) NEUTROPHILS ABSOLUTE COUNT 6.60 K/ L 1.56-6.13 H (BEAKER) (test code = 670) LYMPHOCYTES ABSOLUTE COUNT 2.02 K/ L 1.18-3.74 (BEAKER) (test code = 414) MONOCYTES ABSOLUTE COUNT (BEAKER) 0.63 K/ L 0.24-0.36 H (test code = 415) EOSINOPHILS ABSOLUTE COUNT 0.15 K/ L 0.04-0.36 (BEAKER) (test code = 416) BASOPHILS ABSOLUTE COUNT (BEAKER) 0.04 K/ L 0.01-0.08 (test code = 417) IMMATURE GRANULOCYTES-RELATIVE 0 % 0-1 PERCENT (BEAKER) (test code = 2801) POCT-GLUCOSE [id number] 20:45:00 Test Item Value Reference Range Interpretation Comments POC-GLUCOSE METER 143 mg/dL 70-110 H TESTED AT [facility] 67 ([facility]) (test code = JULIANO Osborne [place] 1538) [address] POCT-GLUCOSE [id number] 20:45:00 Test Item Value Reference Range Interpretation Comments POC-GLUCOSE METER 145 mg/dL 70-110 H TESTED AT [facility] 6720 ([facility]) (test code = JULIANO Osborne [place] 1538) [address] [id number] 13:37:00 Test Item Value Reference Range Interpretation Comments PREALBUMIN (BEAKER) 10 mg/dL 14-45 L Specimen slightly (test code = 586) hemolyzed OXYGEN SATURATION, [id number] 12:31:00 Test Item Value Reference Range Interpretation Comments O2 SATURATION (MEASURED) (BEAKER) 94.5 % (test code = 1455) [id number] 11:02:00 Test Item Value Reference Range Interpretation Comments PREALBUMIN (BEAKER) (test code = 10 mg/dL 14-45 L 586) RAD, CHEST, 1 VIEW, NON [id number] 05:14:00while patient is intubated or has chest [...] MDReport Verified Date/Time: 05/23/2017 05:14:04 Reading Location: [place] [id number] CT Body Reading Room BASIC METABOLIC [id number] 03:48:00 Test Item Value Reference Range Interpretation Comments SODIUM (BEAKER) 138 meq/L 136-145 (test code = 381) POTASSIUM (BEAKER) 4.6 meq/L 3.5-5.1 Specimen slightly (test code = 379) hemolyzed CHLORIDE (BEAKER) 106 meq/L 98-107 (test code = 382) CO2 (BEAKER) (test 20 meq/L 22-29 L code = 355) BLOOD UREA NITROGEN 54 mg/dL 7-21 H (BEAKER) (test code = 354) CREATININE (BEAKER) 2.66 mg/dL 0.57-1.25 H Specimen slightly (test code = 358) hemolyzed GLUCOSE RANDOM 113 mg/dL 70-105 H (BEAKER) (test code = 652) CALCIUM (BEAKER) 7.9 mg/dL 8.4-10.2 L (test code = 697) EGFR (BEAKER) (test 18 mL/min/1.73 ESTIMA HINA GFR IS code = 1092) sq m NOT ACCURATE CREATININE CLEARANCE IN PREDICTING GLOMERULAR FILTRATION RATE . ESTIMATED GFR I S NOT APPLICABLE FOR DIALYSIS PATIEN TS. [id number] 03:46:00 Test Item Value Reference Range Interpretation Comments MAGNESIUM (BEAKER) 2.4 mg/dL 1.6-2.6 Specimen slightly (test code = 627) hemolyzed [id number] 03:46:00 Test Item Value Reference Range Interpretation Comments PHOSPHORUS (BEAKER) 6.5 mg/dL 2.3-4.7 H Specimen slightly (test code = 604) hemolyzed CBC W/PLT COUNT & AUTO [id number] 03:26:00 Test Item Value Reference Range Interpretation Comments WHITE BLOOD CELL COUNT (BEAKER) 10.8 K/ L 3.5-10.5 H (test code = 775) RED BLOOD CELL COUNT (BEAKER) 3.16 M/ L 3.93-5.22 L (test code = 761) HEMOGLOBIN (BEAKER) (test code = 8.2 GM/DL 11.2-15.7 L 410) HEMATOCRIT (BEAKER) (test code = 26.6 % 34.1-44.9 L 411) MEAN CORPUSCULAR VOLUME (BEAKER) 84.2 fL 79.4-94.8 (test code = 753) MEAN CORPUSCULAR HEMOGLOBIN 25.9 pg 25.6-32.2 (BEAKER) (test code = 751) MEAN CORPUSCULAR HEMOGLOBIN CONC 30.8 GM/DL 32.2-35.5 L (BEAKER) (test code = 752) RED CELL DISTRIBUTION WIDTH 15.0 % 11.7-14.4 H (BEAKER) (test code = 412) PLATELET COUNT (BEAKER) (test 195 K/CU MM 150-450 code = 756) MEAN PLATELET VOLUME (BEAKER) 10.6 fL 9.4-12.3 (test code = 754) NUCLEATED RED BLOOD CELLS 0 /100 WBC 0-0 (BEAKER) (test code = 413) NEUTROPHILS RELATIVE PERCENT 73 % (BEAKER) (test code = 429) LYMPHOCYTES RELATIVE PERCENT 18 % (BEAKER) (test code = 430) MONOCYTES RELATIVE PERCENT 6 % (BEAKER) (test code = 431) EOSINOPHILS RELATIVE PERCENT 2 % (BEAKER) (test code = 432) BASOPHILS RELATIVE PERCENT 1 % (BEAKER) (test code = 437) NEUTROPHILS ABSOLUTE COUNT 7.95 K/ L 1.56-6.13 H (BEAKER) (test code = 670) LYMPHOCYTES ABSOLUTE COUNT 1.93 K/ L 1.18-3.74 (BEAKER) (test code = 414) MONOCYTES ABSOLUTE COUNT (BEAKER) 0.66 K/ L 0.24-0.36 H (test code = 415) EOSINOPHILS ABSOLUTE COUNT 0.18 K/ L 0.04-0.36 (BEAKER) (test code = 416) BASOPHILS ABSOLUTE COUNT (BEAKER) 0.07 K/ L 0.01-0.08 (test code = 417) IMMATURE GRANULOCYTES-RELATIVE 0 % 0-1 PERCENT (BEAKER) (test code = 2801) BLOOD GAS, [id number] 03:18:00 Test Item Value Reference Range Interpretation Comments PH ARTERIAL (BEAKER) (test code = 7.40 7.35-7.45 383) PCO2 ARTERIAL (BEAKER) (test code 40 mmHg 35-45 = 384) PO2 ARTERIAL (BEAKER) (test code 63 mmHg 80-90 L = 385) O2 SATURATION ARTERIAL (BEAKER) 92.3 % 96.0-97.0 L (test code = 386) HCO3 ARTERIAL (BEAKER) (test code 24 mmol/L 21-29 = 388) BASE EXCESS ARTERIAL (BEAKER) -0.6 mmol/L -2.0-3.0 (test code = 387) PATIENT TEMPERATURE (BEAKER) 36.8 C (test code = 1818) FIO2 (BEAKER) (test code = 1819) 36.0 % CALCIUM, [id number] 16:32:00 Test Item Value Reference Range Interpretation Comments CALCIUM IONIZED (BEAKER) (test 1.11 mmol/L 1.12-1.27 L code = 698) PH, BLOOD (BEAKER) (test code = 7.39 1810) BASIC METABOLIC [id number] 15:43:00 Test Item Value Reference Range Interpretation Comments SODIUM (BEAKER) 139 meq/L 136-145 (test code = 381) POTASSIUM (BEAKER) 4.6 meq/L 3.5-5.1 (test code = 379) CHLORIDE (BEAKER) 106 meq/L 98-107 (test code = 382) CO2 (BEAKER) (test 21 meq/L 22-29 L code = 355) BLOOD UREA NITROGEN 54 mg/dL 7-21 H (BEAKER) (test code = 354) CREATININE (BEAKER) 3.08 mg/dL 0.57-1.25 H (test code = 358) GLUCOSE RANDOM 116 mg/dL 70-105 H (BEAKER) (test code = 652) CALCIUM (BEAKER) 8.1 mg/dL 8.4-10.2 L (test code = 697) EGFR (BEAKER) (test 15 mL/min/1.73 ESTIMA HINA GFR IS code = 1092) sq m NOT ACCURATE CREATININE CLEARANCE IN PREDICTING GLOMERULAR FILTRATION RATE . ESTIMATED GFR I S NOT APPLICABLE FOR DIALYSIS PATIEN TS. POCT-GLUCOSE [id number] 12:53:00 Test Item Value Reference Range Interpretation Comments POC-GLUCOSE METER 118 mg/dL 70-110 H TESTED AT [place] [address] ([facility] [place]) (test code = [facility] 1538) [address] BLOOD GAS, [id number] 10:42:00 Test Item Value Reference Range Interpretation Comments PH ARTERIAL (BEAKER) (test code = 7.40 7.35-7.45 383) PCO2 ARTERIAL (BEAKER) (test code 38 mmHg 35-45 = 384) PO2 ARTERIAL (BEAKER) (test code 78 mmHg 80-90 L = 385) O2 SATURATION ARTERIAL (BEAKER) 95.6 % 96.0-97.0 L (test code = 386) HCO3 ARTERIAL (BEAKER) (test code 23 mmol/L 21-29 = 388) BASE EXCESS ARTERIAL (BEAKER) -1.4 mmol/L -2.0-3.0 (test code = 387) PATIENT TEMPERATURE (BEAKER) 36.9 C (test code = 1818) FIO2 (BEAKER) (test code = 1819) 40.0 % POCT-GLUCOSE [id number] 06:46:00 Test Item Value Reference Range Interpretation Comments POC-GLUCOSE METER 106 mg/dL 70-110 TESTED AT [place] [address] ([facility] [place]) (test code = [facility] 1538) [address] RAD, CHEST, 1 VIEW, NON [id number] 05:05:00while patient is intubated or has chest [...] the preoperative exam.Additional findings: None. Signed: JR Elbert, Kelly MDReport Verified Date/Time: 05/22/2017 05:05:00 Reading Location: [facility] C013Y CT Body ReadingRoom BASIC METABOLIC [id number] 05:00:00 Test Item Value Reference Range Interpretation Comments SODIUM (BEAKER) 138 meq/L 136-145 (test code = 381) POTASSIUM (BEAKER) 4.5 meq/L 3.5-5.1 (test code = 379) CHLORIDE (BEAKER) 107 meq/L 98-107 (test code = 382) CO2 (BEAKER) (test 21 meq/L 22-29 L code = 355) BLOOD UREA NITROGEN 53 mg/dL 7-21 H (BEAKER) (test code = 354) CREATININE (BEAKER) 3.23 mg/dL 0.57-1.25 H (test code = 358) GLUCOSE RANDOM 126 mg/dL 70-105 H (BEAKER) (test code = 652) CALCIUM (BEAKER) 8.1 mg/dL 8.4-10.2 L (test code = 697) EGFR (BEAKER) (test 15 mL/min/1.73 ESTIMA HINA GFR IS code = 1092) sq m NOT ACCURATE CREATININE CLEARANCE IN PREDICTING GLOMERULAR FILTRATION RATE . ESTIMATED GFR I S NOT APPLICABLE FOR DIALYSIS PATIEN TS. [id number] 04:41:00 Test Item Value Reference Range Interpretation Comments PHOSPHORUS (BEAKER) (test code = 6.4 mg/dL 2.3-4.7 H 604) [id number] 04:41:00 Test Item Value Reference Range Interpretation Comments MAGNESIUM (BEAKER) (test code = 2.6 mg/dL 1.6-2.6 627) CALCIUM, [id number] 04:26:00 Test Item Value Reference Range Interpretation Comments CALCIUM IONIZED (BEAKER) (test 1.09 mmol/L 1.12-1.27 L code = 698) PH, BLOOD (BEAKER) (test code = 7.40 1810) OXYGEN SATURATION, [id number] 04:25:00 Test Item Value Reference Range Interpretation Comments O2 SATURATION (MEASURED) (BEAKER) 77.0 % (test code = 1455) CBC W/PLT COUNT & AUTO [id number] 04:17:00 Test Item Value Reference Range Interpretation Comments WHITE BLOOD CELL COUNT (BEAKER) 8.9 K/ L 3.5-10.5 (test code = 775) RED BLOOD CELL COUNT (BEAKER) 3.14 M/ L 3.93-5.22 L (test code = 761) HEMOGLOBIN (BEAKER) (test code = 8.1 GM/DL 11.2-15.7 L 410) HEMATOCRIT (BEAKER) (test code = 26.1 % 34.1-44.9 L 411) MEAN CORPUSCULAR VOLUME (BEAKER) 83.1 fL 79.4-94.8 (test code = 753) MEAN CORPUSCULAR HEMOGLOBIN 25.8 pg 25.6-32.2 (BEAKER) (test code = 751) MEAN CORPUSCULAR HEMOGLOBIN CONC 31.0 GM/DL 32.2-35.5 L (BEAKER) (test code = 752) RED CELL DISTRIBUTION WIDTH 15.3 % 11.7-14.4 H (BEAKER) (test code = 412) PLATELET COUNT (BEAKER) (test 156 K/CU MM 150-450 code = 756) MEAN PLATELET VOLUME (BEAKER) 10.2 fL 9.4-12.3 (test code = 754) NUCLEATED RED BLOOD CELLS 0 /100 WBC 0-0 (BEAKER) (test code = 413) NEUTROPHILS RELATIVE PERCENT 68 % (BEAKER) (test code = 429) LYMPHOCYTES RELATIVE PERCENT 22 % (BEAKER) (test code = 430) MONOCYTES RELATIVE PERCENT 8 % (BEAKER) (test code = 431) EOSINOPHILS RELATIVE PERCENT 1 % (BEAKER) (test code = 432) BASOPHILS RELATIVE PERCENT 1 % (BEAKER) (test code = 437) NEUTROPHILS ABSOLUTE COUNT 6.05 K/ L 1.56-6.13 (BEAKER) (test code = 670) LYMPHOCYTES ABSOLUTE COUNT 1.91 K/ L 1.18-3.74 (BEAKER) (test code = 414) MONOCYTES ABSOLUTE COUNT (BEAKER) 0.74 K/ L 0.24-0.36 H (test code = 415) EOSINOPHILS ABSOLUTE COUNT 0.08 K/ L 0.04-0.36 (BEAKER) (test code = 416) BASOPHILS ABSOLUTE COUNT (BEAKER) 0.05 K/ L 0.01-0.08 (test code = 417) IMMATURE GRANULOCYTES-RELATIVE 0 % 0-1 PERCENT (BEAKER) (test code = 2801) LACTIC ACID, ARTERIAL, WHOLE [id number] 00:07:00 Test Item Value Reference Range Interpretation Comments LACTATE BLOOD 1.0 mmol/L 0.5-2.2 Specimen sligh tly ARTERIAL (2) (BEAKER) hemoly zed (test code = 2874) Effective 08/02/2015: Units/Reference Range ChangeNew: 0.5-2.2 mmol/L Previous: 5-20 mg/dLPOCT-GLUCOSE [id number] 23:47:00 Test Item Value Reference Range Interpretation Comments POC-GLUCOSE METER 180 mg/dL 70-110 H TESTED AT [facility] 6720 (BEAKER) (test code = JULIANO REYEZ 1538) [address] BLOOD GAS, [id number] 23:46:00 Test Item Value Reference Range Interpretation Comments PH ARTERIAL (BEAKER) (test code = 7.40 7.35-7.45 383) PCO2 ARTERIAL (BEAKER) (test code 37 mmHg 35-45 = 384) PO2 ARTERIAL (BEAKER) (test code 136 mmHg 80-90 H = 385) O2 SATURATION ARTERIAL (BEAKER) 98.7 % 96.0-97.0 H (test code = 386) HCO3 ARTERIAL (BEAKER) (test code 22 mmol/L 21-29 = 388) BASE EXCESS ARTERIAL (BEAKER) -2.4 mmol/L -2.0-3.0 L (test code = 387) PATIENT TEMPERATURE (BEAKER) 37.0 C (test code = 1818) FIO2 (BEAKER) (test code = 1819) 100.0 % SODIUM NA-STAT [id number] 23:46:00 Test Item Value Reference Range Interpretation Comments SODIUM (BEAKER) (test code = 381) 134 meq/L 135-148 L GLUCOSE-STAT [id number] 23:46:00 Test Item Value Reference Range Interpretation Comments GLUCOSE RANDOM (BEAKER) (test code 119 mg/dL 70-110 H = 652) HGB/HCT (H&H) - STAT [id number] 23:46:00 Test Item Value Reference Range Interpretation Comments HEMOGLOBIN (BEAKER) (test code = 8.8 g/dL 12.0-15.0 L 410) HEMATOCRIT (BEAKER) (test code = 26.0 % 36.0-45.0 L 411) OXYGEN SATURATION, [id number] 23:45:00 Test Item Value Reference Range Interpretation Comments O2 SATURATION (MEASURED) (BEAKER) 68.1 % (test code = 1455) POTASSIUM-STAT [id number] 23:45:00 Test Item Value Reference Range Interpretation Comments POTASSIUM (BEAKER) (test code = 5.5 meq/L 3.6-5.5 379) POCT-GLUCOSE [id number] 20:58:00 Test Item Value Reference Range Interpretation Comments POC-GLUCOSE METER 133 mg/dL 70-110 H TESTED AT [place] [address] ([facility] [place]) (test code = JULIANO Osborne [facility] 1538) [address] POCT-GLUCOSE [id number] 17:58:00 Test Item Value Reference Range Interpretation Comments POC-GLUCOSE METER 210 mg/dL 70-110 H TESTED AT [facility] 67 ([facility] (test code = JULIANO Osborne [facility] 1538) [address] POCT-GLUCOSE [id number] 17:58:00 Test Item Value Reference Range Interpretation Comments POC-GLUCOSE METER 211 mg/dL 70-110 H TESTED AT [facility] 6720 ([facility] (test code = JULIANO Osborne [facility] 1538) [address] POCT-GLUCOSE [id number] 17:58:00 Test Item Value Reference Range Interpretation Comments POC-GLUCOSE METER 232 mg/dL 70-110 H TESTED AT [place] [address] (BEAKER) (test code = JULIANO Osborne [facility] 1538) [address] POCT-GLUCOSE [id number] 17:58:00 Test Item Value Reference Range Interpretation Comments POC-GLUCOSE METER 262 mg/dL 70-110 H TESTED AT [place] [address] (BEAKER) (test code = JULIANO Osborne [facility] 1538) [address] BLOOD GAS, [id number] 17:01:00 Test Item Value Reference Range Interpretation Comments PH ARTERIAL (BEAKER) (test code = 7.38 7.35-7.45 383) PCO2 ARTERIAL (BEAKER) (test code 39 mmHg 35-45 = 384) PO2 ARTERIAL (BEAKER) (test code 75 mmHg 80-90 L = 385) O2 SATURATION ARTERIAL (BEAKER) 94.9 % 96.0-97.0 L (test code = 386) HCO3 ARTERIAL (BEAKER) (test code 23 mmol/L 21-29 = 388) BASE EXCESS ARTERIAL (BEAKER) -2.5 mmol/L -2.0-3.0 L (test code = 387) PATIENT TEMPERATURE (BEAKER) 36.8 C (test code = 1818) FIO2 (BEAKER) (test code = 1819) 60.0 % POTASSIUM-STAT [id number] 17:00:00 Test Item Value Reference Range Interpretation Comments POTASSIUM (BEAKER) (test code = 4.8 meq/L 3.6-5.5 379) POCT-GLUCOSE [id number] 15:52:00 Test Item Value Reference Range Interpretation Comments POC-GLUCOSE METER 267 mg/dL 70-110 H TESTED AT [place] [address] (BEAKER) (test code = JULIANO Osborne [facility] 1538) [address] POCT-GLUCOSE [id number] 14:42:00 Test Item Value Reference Range Interpretation Comments POC-GLUCOSE METER 231 mg/dL 70-110 H TESTED AT [place] [address] (BEAKER) (test code = [facility] Dylon [facility] 1538) [address] BODY FLUID CELL COUNT WITH [id number] 14:41:00 Test Item Value Reference Range Interpretation Comments APPEARANCE FLUID (BEAKER) (test Turbid Clear A code = 510) COLOR FLUID (BEAKER) (test code Colorless Colorless, Straw = 511) RBC FLUID (BEAKER) (test code = 2000 /cu mm <=1 H 513) ADJUSTED WBC FLUID (BEAKER) 1489 /cu mm <=5 H (test code = 1691) LINING CELLS (BEAKER) (test code 119 /cu mm <=1 H = 1590) NEUTROPHILS FLUID (BEAKER) (test 40 % code = 1656) LYMPHS FLUID (BEAKER) (test code 34 % = 488) MONO/MACROPHAGE FLUID (BEAKER) 26 % (test code = 489) EOSINOPHILS FLUID (BEAKER) (test 0 % code = 491) BASO FLUID (BEAKER) (test code = 0 % 492) CONTAINER BODY FLUID (BEAKER) EDTA Tube (test code = 7133) BASIC METABOLIC [id number] 14:11:00 Test Item Value Reference Range Interpretation Comments SODIUM (BEAKER) 137 meq/L 136-145 (test code = 381) POTASSIUM (BEAKER) 5.6 meq/L 3.5-5.1 H (test code = 379) CHLORIDE (BEAKER) 106 meq/L 98-107 (test code = 382) CO2 (BEAKER) (test 20 meq/L 22-29 L code = 355) BLOOD UREA NITROGEN 48 mg/dL 7-21 H (BEAKER) (test code = 354) CREATININE (BEAKER) 2.50 mg/dL 0.57-1.25 H (test code = 358) GLUCOSE RANDOM 221 mg/dL 70-105 H (BEAKER) (test code = 652) CALCIUM (BEAKER) 8.1 mg/dL 8.4-10.2 L (test code = 697) EGFR (BEAKER) (test 20 mL/min/1.73 ESTIMA HINA GFR IS code = 1092) sq m NOT ACCURATE CREATININE CLEARANCE IN PREDICTING GLOMERULAR FILTRATION RATE . ESTIMATED GFR I S NOT APPLICABLE FOR DIALYSIS PATIEN TS. [id number] 14:08:00 Test Item Value Reference Range Interpretation Comments PHOSPHORUS (BEAKER) (test code = 7.2 mg/dL 2.3-4.7 H 604) [id number] 14:08:00 Test Item Value Reference Range Interpretation Comments MAGNESIUM (BEAKER) (test code = 2.6 mg/dL 1.6-2.6 627) POCT-GLUCOSE [id number] 12:49:00 Test Item Value Reference Range Interpretation Comments POC-GLUCOSE METER 224 mg/dL 70-110 H TESTED AT [facility] 6720 ([facility] (test code = [place]IANO [place] 1538) [address] POCT-GLUCOSE [id number] 12:49:00 Test Item Value Reference Range Interpretation Comments POC-GLUCOSE METER 248 mg/dL 70-110 H TESTED AT [facility] 6720 [facility] (test code = JULIANO [place] 1538) [address] RAD, CHEST, 1 VIEW, NON [id number] 12:32:00Reason for exam:->re-intubationShould this be performed at [...] minimal left pneumothorax is grossly unchanged. Signed: Mona White MDReport Verified Date/Time: 05/21/2017 12:32:08 Reading Location: [facility] Radiology Reading Room POTASSIUM-STAT [id number] 12:28:00 Test Item Value Reference Range Interpretation Comments POTASSIUM (BEAKER) (test code = 5.5 meq/L 3.6-5.5 379) BLOOD GAS, [id number] 12:28:00 Test Item Value Reference Range Interpretation Comments PH ARTERIAL (BEAKER) (test code = 7.32 7.35-7.45 L 383) PCO2 ARTERIAL (BEAKER) (test code 45 mmHg 35-45 = 384) PO2 ARTERIAL (BEAKER) (test code 304 mmHg 80-90 H = 385) O2 SATURATION ARTERIAL (BEAKER) 99.7 % 96.0-97.0 H (test code = 386) HCO3 ARTERIAL (BEAKER) (test code 22 mmol/L 21-29 = 388) BASE EXCESS ARTERIAL (BEAKER) -3.7 mmol/L -2.0-3.0 L (test code = 387) PATIENT TEMPERATURE (BEAKER) 37.0 C (test code = 1818) FIO2 (BEAKER) (test code = 1819) 100.0 % BLOOD GAS, [id number] 10:53:00 Test Item Value Reference Range Interpretation Comments PH ARTERIAL (BEAKER) (test code = 7.36 7.35-7.45 383) PCO2 ARTERIAL (BEAKER) (test code 35 mmHg 35-45 = 384) PO2 ARTERIAL (BEAKER) (test code 40 mmHg 80-90 LL = 385) O2 SATURATION ARTERIAL (BEAKER) 82.3 % 96.0-97.0 L (test code = 386) HCO3 ARTERIAL (BEAKER) (test code 20 mmol/L 21-29 L = 388) BASE EXCESS ARTERIAL (BEAKER) -5.9 mmol/L -2.0-3.0 L (test code = 387) PATIENT TEMPERATURE (BEAKER) 33.7 C (test code = 1818) FIO2 (BEAKER) (test code = 1819) 36.0 % RAD, CHEST, 1 VIEW, NON [id number] 08:46:00while patient is intubated or has chest [...] minimal left apical pneumothorax is suspected. Signed: Mona White Verified Date/Time: 05/21/2017 08:46:27 Reading Location: [facility] Radiology Reading Room BLOOD GAS, [id number] 05:41:00 Test Item Value Reference Range Interpretation Comments PH ARTERIAL (BEAKER) (test code = 7.33 7.35-7.45 L 383) PCO2 ARTERIAL (BEAKER) (test code 40 mm Hg 35-45 = 384) PO2 ARTERIAL (BEAKER) (test code 106 mm Hg 80-90 H = 385) O2 SATURATION ARTERIAL (BEAKER) 97.5 % 96.0-97.0 H (test code = 386) HCO3 ARTERIAL (BEAKER) (test code 21 mmol/L 21-29 = 388) BASE EXCESS ARTERIAL (BEAKER) -5.1 mmol/L -2.0-3.0 L (test code = 387) PATIENT TEMPERATURE (BEAKER) 37.0 (test code = 1818) FIO2 (BEAKER) (test code = 1819) 40 CALCIUM, [id number] 04:35:00 Test Item Value Reference Range Interpretation Comments CALCIUM IONIZED (BEAKER) (test 1.13 mmol/L 1.12-1.27 code = 698) PH, BLOOD (BEAKER) (test code = 7.32 1810) BLOOD GAS, [id number] 04:28:00 Test Item Value Reference Range Interpretation Comments PH ARTERIAL (BEAKER) (test code = 7.32 7.35-7.45 L 383) PCO2 ARTERIAL (BEAKER) (test code 40 mmHg 35-45 = 384) PO2 ARTERIAL (BEAKER) (test code 100 mmHg 80-90 H = 385) O2 SATURATION ARTERIAL (BEAKER) 97.2 % 96.0-97.0 H (test code = 386) HCO3 ARTERIAL (BEAKER) (test code 20 mmol/L 21-29 L = 388) BASE EXCESS ARTERIAL (BEAKER) -5.7 mmol/L -2.0-3.0 L (test code = 387) PATIENT TEMPERATURE (BEAKER) 36.9 C (test code = 1818) FIO2 (BEAKER) (test code = 1819) 40.0 % [id number] 04:20:00 Test Item Value Reference Range Interpretation Comments PHOSPHORUS (BEAKER) (test code = 6.2 mg/dL 2.3-4.7 H 604) [id number] 04:20:00 Test Item Value Reference Range Interpretation Comments MAGNESIUM (BEAKER) (test code = 2.4 mg/dL 1.6-2.6 627) HEPATIC FUNCTION [id number] 04:20:00 Test Item Value Reference Range Interpretation Comments TOTAL PROTEIN (BEAKER) (test code = 4.8 gm/dL 6.0-8.3 L 770) ALBUMIN (BEAKER) (test code = 1145) 2.5 g/dL 3.5-5.0 L BILIRUBIN TOTAL (BEAKER) (test code 0.7 mg/dL 0.2-1.2 = 377) BILIRUBIN DIRECT (BEAKER) (test 0.3 mg/dL 0.1-0.5 code = 706) ALKALINE PHOSPHATASE (BEAKER) (test 96 U/L 40-150 code = 346) AST (SGOT) (BEAKER) (test code = 31 U/L 5-34 353) ALT (SGPT) (BEAKER) (test code = 11 U/L 6-55 347) BASIC METABOLIC [id number] 04:20:00 Test Item Value Reference Range Interpretation Comments SODIUM (BEAKER) 134 meq/L 136-145 L (test code = 381) POTASSIUM (BEAKER) 5.0 meq/L 3.5-5.1 (test code = 379) CHLORIDE (BEAKER) 105 meq/L 98-107 (test code = 382) CO2 (BEAKER) (test 18 meq/L 22-29 L code = 355) BLOOD UREA NITROGEN 45 mg/dL 7-21 H (BEAKER) (test code = 354) CREATININE (BEAKER) 1.91 mg/dL 0.57-1.25 H (test code = 358) GLUCOSE RANDOM 247 mg/dL 70-105 H (BEAKER) (test code = 652) CALCIUM (BEAKER) 7.9 mg/dL 8.4-10.2 L (test code = 697) EGFR (BEAKER) (test 27 mL/min/1.73 ESTIMA HINA GFR IS code = 1092) sq m NOT ACCURATE CREATININE CLEARANCE IN PREDICTING GLOMERULAR FILTRATION RATE . ESTIMATED GFR I S NOT APPLICABLE FOR DIALYSIS PATIEN TS. OXYGEN SATURATION, [id number] 04:18:00 Test Item Value Reference Range Interpretation Comments O2 SATURATION (MEASURED) (BEAKER) 68.0 % (test code = 1455) LACTIC ACID, ARTERIAL, WHOLE [id number] 04:12:00 Test Item Value Reference Range Interpretation Comments LACTATE BLOOD ARTERIAL (2) 1.0 mmol/L 0.5-2.2 (BEAKER) (test code = 2874) Effective 08/02/2015: Units/Reference Range ChangeNew: 0.5-2.2 mmol/L Previous: 5-20 mg/dLCBC W/PLT COUNT & AUTO [id number] 04:00:00 Test Item Value Reference Range Interpretation Comments WHITE BLOOD CELL COUNT (BEAKER) 12.0 K/ L 3.5-10.5 H (test code = 775) RED BLOOD CELL COUNT (BEAKER) 3.32 M/ L 3.93-5.22 L (test code = 761) HEMOGLOBIN (BEAKER) (test code = 8.8 GM/DL 11.2-15.7 L 410) HEMATOCRIT (BEAKER) (test code = 28.3 % 34.1-44.9 L 411) MEAN CORPUSCULAR VOLUME (BEAKER) 85.2 fL 79.4-94.8 (test code = 753) MEAN CORPUSCULAR HEMOGLOBIN 26.5 pg 25.6-32.2 (BEAKER) (test code = 751) MEAN CORPUSCULAR HEMOGLOBIN CONC 31.1 GM/DL 32.2-35.5 L (BEAKER) (test code = 752) RED CELL DISTRIBUTION WIDTH 15.0 % 11.7-14.4 H (BEAKER) (test code = 412) PLATELET COUNT (BEAKER) (test 157 K/CU MM 150-450 code = 756) MEAN PLATELET VOLUME (BEAKER) 10.7 fL 9.4-12.3 (test code = 754) NUCLEATED RED BLOOD CELLS 0 /100 WBC 0-0 (BEAKER) (test code = 413) NEUTROPHILS RELATIVE PERCENT 91 % (BEAKER) (test code = 429) LYMPHOCYTES RELATIVE PERCENT 4 % (BEAKER) (test code = 430) MONOCYTES RELATIVE PERCENT 4 % (BEAKER) (test code = 431) EOSINOPHILS RELATIVE PERCENT 0 % (BEAKER) (test code = 432) BASOPHILS RELATIVE PERCENT 0 % (BEAKER) (test code = 437) NEUTROPHILS ABSOLUTE COUNT 10.95 K/ L 1.56-6.13 H (BEAKER) (test code = 670) LYMPHOCYTES ABSOLUTE COUNT 0.52 K/ L 1.18-3.74 L (BEAKER) (test code = 414) MONOCYTES ABSOLUTE COUNT (BEAKER) 0.42 K/ L 0.24-0.36 H (test code = 415) EOSINOPHILS ABSOLUTE COUNT 0.01 K/ L 0.04-0.36 L (BEAKER) (test code = 416) BASOPHILS ABSOLUTE COUNT (BEAKER) 0.05 K/ L 0.01-0.08 (test code = 417) IMMATURE GRANULOCYTES-RELATIVE 0 % 0-1 PERCENT (BEAKER) (test code = 2801) BLOOD GAS, [id number] 00:06:00 Test Item Value Reference Range Interpretation Comments PH ARTERIAL (BEAKER) (test code = 7.26 7.35-7.45 L 383) PCO2 ARTERIAL (BEAKER) (test code 52 mmHg 35-45 H = 384) PO2 ARTERIAL (BEAKER) (test code 88 mmHg 80-90 = 385) O2 SATURATION ARTERIAL (BEAKER) 95.7 % 96.0-97.0 L (test code = 386) HCO3 ARTERIAL (BEAKER) (test code 23 mmol/L 21-29 = 388) BASE EXCESS ARTERIAL (BEAKER) -4.0 mmol/L -2.0-3.0 L (test code = 387) PATIENT TEMPERATURE (BEAKER) 36.4 C (test code = 1818) FIO2 (BEAKER) (test code = 1819) 40.0 % [id number] 18:55:00 Test Item Value Reference Range Interpretation Comments PHOSPHORUS (BEAKER) (test code = 4.8 mg/dL 2.3-4.7 H 604) [id number] 18:55:00 Test Item Value Reference Range Interpretation Comments MAGNESIUM (BEAKER) (test code = 2.3 mg/dL 1.6-2.6 627) BASIC METABOLIC [id number] 18:55:00 Test Item Value Reference Range Interpretation Comments SODIUM (BEAKER) 136 meq/L 136-145 (test code = 381) POTASSIUM (BEAKER) 4.5 meq/L 3.5-5.1 (test code = 379) CHLORIDE (BEAKER) 108 meq/L 98-107 H (test code = 382) CO2 (BEAKER) (test 21 meq/L 22-29 L code = 355) BLOOD UREA NITROGEN 39 mg/dL 7-21 H (BEAKER) (test code = 354) CREATININE (BEAKER) 1.58 mg/dL 0.57-1.25 H (test code = 358) GLUCOSE RANDOM 172 mg/dL 70-105 H (BEAKER) (test code = 652) CALCIUM (BEAKER) 7.9 mg/dL 8.4-10.2 L (test code = 697) EGFR (BEAKER) (test 33 mL/min/1.73 ESTIMA HINA GFR IS code = 1092) sq m NOT ACCURATE CREATININE CLEARANCE IN PREDICTING GLOMERULAR FILTRATION RATE . ESTIMATED GFR I S NOT APPLICABLE FOR DIALYSIS PATIEN TS. LACTIC ACID, ARTERIAL, WHOLE [id number] 18:53:00 Test Item Value Reference Range Interpretation Comments LACTATE BLOOD 0.9 mmol/L 0.5-2.2 Specimen sligh tly ARTERIAL (2) (BEAKER) hemoly zed (test code = 2874) Effective 08/02/2015: Units/Reference Range ChangeNew: 0.5-2.2 mmol/L Previous: 5-20 mg/dLRAD, CHEST, 1 VIEW, NON [id number] 18:44:00Reason for exam:- >postop cardiacShould this be [...] represent atelectasis. Pneumonitis cannot be excluded. Signed: Miguel Li MDReport Verified Date/Time: 05/20/2017 18:44:30 Reading Location: [address] Consult Reading Room Electronically signed by: MIGUEL LI M.D. on05/20/2017 06:44 PMCBC W/PLT COUNT & AUTO [id number] 18:38:00 Test Item Value Reference Range Interpretation Comments WHITE BLOOD CELL COUNT (BEAKER) 8.7 K/ L 3.5-10.5 (test code = 775) RED BLOOD CELL COUNT (BEAKER) 3.33 M/ L 3.93-5.22 L (test code = 761) HEMOGLOBIN (BEAKER) (test code = 8.7 GM/DL 11.2-15.7 L 410) HEMATOCRIT (BEAKER) (test code = 27.9 % 34.1-44.9 L 411) MEAN CORPUSCULAR VOLUME (BEAKER) 83.8 fL 79.4-94.8 (test code = 753) MEAN CORPUSCULAR HEMOGLOBIN 26.1 pg 25.6-32.2 (BEAKER) (test code = 751) MEAN CORPUSCULAR HEMOGLOBIN CONC 31.2 GM/DL 32.2-35.5 L (BEAKER) (test code = 752) RED CELL DISTRIBUTION WIDTH 14.9 % 11.7-14.4 H (BEAKER) (test code = 412) PLATELET COUNT (BEAKER) (test 137 K/CU MM 150-450 L code = 756) MEAN PLATELET VOLUME (BEAKER) 10.2 fL 9.4-12.3 (test code = 754) NUCLEATED RED BLOOD CELLS 0 /100 WBC 0-0 (BEAKER) (test code = 413) NEUTROPHILS RELATIVE PERCENT 79 % (BEAKER) (test code = 429) LYMPHOCYTES RELATIVE PERCENT 12 % (BEAKER) (test code = 430) MONOCYTES RELATIVE PERCENT 7 % (BEAKER) (test code = 431) EOSINOPHILS RELATIVE PERCENT 1 % (BEAKER) (test code = 432) BASOPHILS RELATIVE PERCENT 1 % (BEAKER) (test code = 437) NEUTROPHILS ABSOLUTE COUNT 6.83 K/ L 1.56-6.13 H (BEAKER) (test code = 670) LYMPHOCYTES ABSOLUTE COUNT 1.06 K/ L 1.18-3.74 L (BEAKER) (test code = 414) MONOCYTES ABSOLUTE COUNT (BEAKER) 0.56 K/ L 0.24-0.36 H (test code = 415) EOSINOPHILS ABSOLUTE COUNT 0.12 K/ L 0.04-0.36 (BEAKER) (test code = 416) BASOPHILS ABSOLUTE COUNT (BEAKER) 0.04 K/ L 0.01-0.08 (test code = 417) IMMATURE GRANULOCYTES-RELATIVE 1 % 0-1 PERCENT (BEAKER) (test code = 2801) OXYGEN SATURATION, [id number] 18:36:00 Test Item Value Reference Range Interpretation Comments O2 SATURATION (MEASURED) (BEAKER) 72.5 % (test code = 1455) From distal port of IJ central venous catheterSODIUM NA-STAT [id number] 18:30:00 Test Item Value Reference Range Interpretation Comments SODIUM (BEAKER) (test code = 381) 132 meq/L 135-148 L HGB/HCT (H&H) - STAT [id number] 18:30:00 Test Item Value Reference Range Interpretation Comments HEMOGLOBIN (BEAKER) (test code = 9.4 g/dL 12.0-15.0 L 410) HEMATOCRIT (BEAKER) (test code = 28.0 % 36.0-45.0 L 411) GLUCOSE-STAT [id number] 18:30:00 Test Item Value Reference Range Interpretation Comments GLUCOSE RANDOM (BEAKER) (test code 159 mg/dL 70-110 H = 652) BLOOD GAS, [id number] 18:30:00 Test Item Value Reference Range Interpretation Comments PH ARTERIAL (BEAKER) (test code = 7.34 7.35-7.45 L 383) PCO2 ARTERIAL (BEAKER) (test code 43 mmHg 35-45 = 384) PO2 ARTERIAL (BEAKER) (test code 76 mmHg 80-90 L = 385) O2 SATURATION ARTERIAL (BEAKER) 94.9 % 96.0-97.0 L (test code = 386) HCO3 ARTERIAL (BEAKER) (test code 23 mmol/L 21-29 = 388) BASE EXCESS ARTERIAL (BEAKER) -2.6 mmol/L -2.0-3.0 L (test code = 387) PATIENT TEMPERATURE (BEAKER) 36.4 C (test code = 1818) FIO2 (BEAKER) (test code = 1819) 60.0 % CALCIUM, [id number] 18:30:00 Test Item Value Reference Range Interpretation Comments CALCIUM IONIZED (BEAKER) (test 0.94 mmol/L 1.12-1.27 L code = 698) PH, BLOOD (BEAKER) (test code = 7.34 1810) POTASSIUM-STAT [id number] 18:28:00 Test Item Value Reference Range Interpretation Comments POTASSIUM (BEAKER) (test code = 4.4 meq/L 3.6-5.5 379) THROMBOELASTOGRAPH ([id number] 18:11:00 Test Item Value Reference Range Interpretation Comments TEG ACTIVATED CLOTTING TIME 6.7 minutes 4.0-7.0 (BEAKER) (test code = 1407) TEG FIBRINOGEN ACTIVITY (BEAKER) 66.6 degrees 61.0-73.0 (test code = 1408) TEG PLT. AGGREGATION (BEAKER) 62.4 MM 55.0-65.0 (test code = 1409) TEG FIBRINOLYSIS (BEAKER) (test 0.0 % 0.0-5.0 code = 1410) TGH ACTIVATED CLOTTING TIME 6.7 minutes 4.0-7.0 (BEAKER) (test code = 1411) TGH FIBRINOGEN ACTIVITY (BEAKER) 69.0 degrees 61.0-73.0 (test code = 1412) TGH PLT. AGGREGATION (BEAKER) 62.8 MM 55.0-65.0 (test code = 1413) TGH FIBRINOLYSIS (BEAKER) (test 0.0 % 0.0-5.0 code = 1414) [id number] 17:53:00 Test Item Value Reference Range Interpretation Comments ACTIVATED CLOTTING TIME 103 sec TEST ED AT [place] [address] ([facility] [place]) (test code = JULIANO Osborne [place] [address]) [id number] 17:53:00 Test Item Value Reference Range Interpretation Comments ACTIVATED CLOTTING TIME 466 sec TEST ED AT [place] [address] ([facility] [place]) (test code = JULIANO Osborne [place] [address]) [address] [id number] 17:53:00 Test Item Value Reference Range Interpretation Comments ACTIVATED CLOTTING TIME 543 sec TEST ED AT [place] [address] ([facility] [place]) (test code = JULIANO Osborne [place] [address]) [id number] 17:53:00 Test Item Value Reference Range Interpretation Comments ACTIVATED CLOTTING TIME 549 sec TEST ED AT [place] [address] ([facility] [place]) (test code = JULIANO Osborne [place] [address]) [address] [id number] 17:53:00 Test Item Value Reference Range Interpretation Comments ACTIVATED CLOTTING TIME 632 sec TEST ED AT [place] [address] ([facility] [place]) (test code = [place] [address]) [address] [id number] 17:53:00 Test Item Value Reference Range Interpretation Comments ACTIVATED CLOTTING TIME 494 sec TEST ED AT [place] [address] ([facility] [place]) (test code = JULIANO [place] [address]) [address] [id number] 17:53:00 Test Item Value Reference Range Interpretation Comments ACTIVATED CLOTTING TIME 587 sec TEST ED AT [place] [address] ([facility] [place]) (test code = JULIANO Osborne [place] [address]) [id number] 17:53:00 Test Item Value Reference Range Interpretation Comments ACTIVATED CLOTTING TIME 626 sec TEST ED AT [place] [address] ([facility] [place]) (test code = J[place]IANO Osborne [place] [address]) [address] [id number] 17:52:00 Test Item Value Reference Range Interpretation Comments ACTIVATED CLOTTING TIME 808 sec TEST ED AT [place] [address] ([facility] [place]) (test code = JULIANO Osborne [place] [address]) [address] [id number] 16:54:00 Test Item Value Reference Range Interpretation Comments PARTIAL THROMBOPLASTIN TIME 40.2 seconds 22.5-36.0 H ([facility] [place]) (test code = 760) [id number] 16:53:00 Test Item Value Reference Range Interpretation Comments FIBRINOGEN LEVEL ([facility] [place]) (test 306 mg/dl 225-434 code = 658) PROTHROMBIN [id number] 16:50:00 Test Item Value Reference Range Interpretation Comments PROTIME (AKER) (test code = 19.6 seconds 11.7-14.7 H 759) INR ([facility] [place]) (test code = 370) 1.7 <=5.9 RECOMMENDED COUMADIN/WARFARIN INR THERAPY RANGESSTANDARD DOSE: 2.0 - 3.0 Includes: PROPHYLAXIS forvenous thrombosis, systemic embolization; TREATMENT for venous thrombosis and/or pulmonary embolus.HIGH RISK: Target INR is 2.5-3.5 for patients with mechanical heart valves.PLATELET [id number] 16:45:00 Test Item Value Reference Range Interpretation Comments PLATELET COUNT ([facility]) (test 136 K/CU MM 150-450 L code = 756) POTASSIUM-STAT [id number] 16:15:00 Test Item Value Reference Range Interpretation Comments POTASSIUM (BEAKER) (test code = 4.9 meq/L 3.6-5.5 379) BLOOD GAS, [id number] 16:15:00 Test Item Value Reference Range Interpretation Comments PH ARTERIAL (BEAKER) (test code = 7.39 7.35-7.45 383) PCO2 ARTERIAL (BEAKER) (test code 42 mmHg 35-45 = 384) PO2 ARTERIAL (BEAKER) (test code 201 mmHg 80-90 H = 385) O2 SATURATION ARTERIAL (BEAKER) 99.4 % 96.0-97.0 H (test code = 386) HCO3 ARTERIAL (BEAKER) (test code 25 mmol/L 21-29 = 388) BASE EXCESS ARTERIAL (BEAKER) -0.3 mmol/L -2.0-3.0 (test code = 387) PATIENT TEMPERATURE (BEAKER) 36.3 C (test code = 1818) FIO2 (BEAKER) (test code = 1819) 100.0 % SODIUM NA-STAT [id number] 16:15:00 Test Item Value Reference Range Interpretation Comments SODIUM (BEAKER) (test code = 381) 131 meq/L 135-148 L GLUCOSE-STAT [id number] 16:15:00 Test Item Value Reference Range Interpretation Comments GLUCOSE RANDOM (BEAKER) (test code 198 mg/dL 70-110 H = 652) HGB/HCT (H&H) - STAT [id number] 16:15:00 Test Item Value Reference Range Interpretation Comments HEMOGLOBIN (BEAKER) (test code = 7.5 g/dL 12.0-15.0 L 410) HEMATOCRIT (BEAKER) (test code = 22.0 % 36.0-45.0 L 411) CALCIUM, [id number] 16:14:00 Test Item Value Reference Range Interpretation Comments CALCIUM IONIZED (BEAKER) (test 0.91 mmol/L 1.12-1.27 L code = 698) PH, BLOOD (BEAKER) (test code = 7.39 1810) BLOOD GAS, [id number] 15:39:00 Test Item Value Reference Range Interpretation Comments PH ARTERIAL (BEAKER) (test code = 7.44 7.35-7.45 383) PCO2 ARTERIAL (BEAKER) (test code 38 mmHg 35-45 = 384) PO2 ARTERIAL (BEAKER) (test code = 298 mmHg 80-90 H 385) O2 SATURATION ARTERIAL (BEAKER) 99.7 % 96.0-97.0 H (test code = 386) HCO3 ARTERIAL (BEAKER) (test code 25 mmol/L 21-29 = 388) BASE EXCESS ARTERIAL (BEAKER) 0.7 mmol/L -2.0-3.0 (test code = 387) PATIENT TEMPERATURE (BEAKER) (test 36.2 C code = 1818) FIO2 (BEAKER) (test code = 1819) 70.0 % SODIUM NA-STAT [id number] 15:39:00 Test Item Value Reference Range Interpretation Comments SODIUM (BEAKER) (test code = 381) 131 meq/L 135-148 L GLUCOSE-STAT [id number] 15:39:00 Test Item Value Reference Range Interpretation Comments GLUCOSE RANDOM (BEAKER) (test code 186 mg/dL 70-110 H = 652) HGB/HCT (H&H) - STAT [id number] 15:39:00 Test Item Value Reference Range Interpretation Comments HEMOGLOBIN (BEAKER) (test code = 7.5 g/dL 12.0-15.0 L 410) HEMATOCRIT (BEAKER) (test code = 22.0 % 36.0-45.0 L 411) POTASSIUM-STAT [id number] 15:38:00 Test Item Value Reference Range Interpretation Comments POTASSIUM (BEAKER) (test code = 5.3 meq/L 3.6-5.5 379) BLOOD GAS, [id number] 15:24:00 Test Item Value Reference Range Interpretation Comments PH ARTERIAL (BEAKER) (test code = 7.47 7.35-7.45 H 383) PCO2 ARTERIAL (BEAKER) (test code 37 mmHg 35-45 = 384) PO2 ARTERIAL (BEAKER) (test code = 334 mmHg 80-90 H 385) O2 SATURATION ARTERIAL (BEAKER) 99.8 % 96.0-97.0 H (test code = 386) HCO3 ARTERIAL (BEAKER) (test code 26 mmol/L 21-29 = 388) BASE EXCESS ARTERIAL (BEAKER) 2.2 mmol/L -2.0-3.0 (test code = 387) PATIENT TEMPERATURE (BEAKER) (test 36.2 C code = 1818) FIO2 (BEAKER) (test code = 1819) 70.0 % SODIUM NA-STAT [id number] 15:24:00 Test Item Value Reference Range Interpretation Comments SODIUM (BEAKER) (test code = 381) 130 meq/L 135-148 L GLUCOSE-STAT [id number] 15:24:00 Test Item Value Reference Range Interpretation Comments GLUCOSE RANDOM (BEAKER) (test code 189 mg/dL 70-110 H = 652) HGB/HCT (H&H) - STAT [id number] 15:24:00 Test Item Value Reference Range Interpretation Comments HEMOGLOBIN (BEAKER) (test code = 6.7 g/dL 12.0-15.0 L 410) HEMATOCRIT (BEAKER) (test code = 20.0 % 36.0-45.0 L 411) POTASSIUM-STAT [id number] 15:23:00 Test Item Value Reference Range Interpretation Comments POTASSIUM (BEAKER) (test code = 5.4 meq/L 3.6-5.5 379) BLOOD GAS, [id number] 15:07:00 Test Item Value Reference Range Interpretation Comments PH ARTERIAL (BEAKER) (test code = 7.43 7.35-7.45 383) PCO2 ARTERIAL (BEAKER) (test code 41 mmHg 35-45 = 384) PO2 ARTERIAL (BEAKER) (test code = 365 mmHg 80-90 H 385) O2 SATURATION ARTERIAL (BEAKER) 99.8 % 96.0-97.0 H (test code = 386) HCO3 ARTERIAL (BEAKER) (test code 27 mmol/L 21-29 = 388) BASE EXCESS ARTERIAL (BEAKER) 1.9 mmol/L -2.0-3.0 (test code = 387) PATIENT TEMPERATURE (BEAKER) (test 35.8 C code = 1818) FIO2 (BEAKER) (test code = 1819) 70.0 % SODIUM NA-STAT [id number] 15:07:00 Test Item Value Reference Range Interpretation Comments SODIUM (BEAKER) (test code = 381) 129 meq/L 135-148 L GLUCOSE-STAT [id number] 15:07:00 Test Item Value Reference Range Interpretation Comments GLUCOSE RANDOM (BEAKER) (test code 172 mg/dL 70-110 H = 652) HGB/HCT (H&H) - STAT [id number] 15:07:00 Test Item Value Reference Range Interpretation Comments HEMOGLOBIN (BEAKER) (test code = 7.1 g/dL 12.0-15.0 L 410) HEMATOCRIT (BEAKER) (test code = 21.0 % 36.0-45.0 L 411) POTASSIUM-STAT [id number] 15:04:00 Test Item Value Reference Range Interpretation Comments POTASSIUM (BEAKER) (test code = 5.0 meq/L 3.6-5.5 379) BLOOD GAS, [id number] 14:21:00 Test Item Value Reference Range Interpretation Comments PH ARTERIAL (BEAKER) (test code = 7.43 7.35-7.45 383) PCO2 ARTERIAL (BEAKER) (test code 38 mmHg 35-45 = 384) PO2 ARTERIAL (BEAKER) (test code = 360 mmHg 80-90 H 385) O2 SATURATION ARTERIAL (BEAKER) 99.8 % 96.0-97.0 H (test code = 386) HCO3 ARTERIAL (BEAKER) (test code 27 mmol/L 21-29 = 388) BASE EXCESS ARTERIAL (BEAKER) 0.3 mmol/L -2.0-3.0 (test code = 387) PATIENT TEMPERATURE (BEAKER) (test 28.9 C code = 1818) FIO2 (BEAKER) (test code = 1819) 70.0 % SODIUM NA-STAT [id number] 14:21:00 Test Item Value Reference Range Interpretation Comments SODIUM (BEAKER) (test code = 381) 133 meq/L 135-148 L GLUCOSE-STAT [id number] 14:21:00 Test Item Value Reference Range Interpretation Comments GLUCOSE RANDOM (BEAKER) (test code 160 mg/dL 70-110 H = 652) HGB/HCT (H&H) - STAT [id number] 14:21:00 Test Item Value Reference Range Interpretation Comments HEMOGLOBIN (BEAKER) (test code = 7.5 g/dL 12.0-15.0 L 410) HEMATOCRIT (BEAKER) (test code = 22.0 % 36.0-45.0 L 411) POTASSIUM-STAT [id number] 14:20:00 Test Item Value Reference Range Interpretation Comments POTASSIUM (BEAKER) (test code = 4.7 meq/L 3.6-5.5 379) BLOOD GAS, [id number] 13:58:00 Test Item Value Reference Range Interpretation Comments PH ARTERIAL (BEAKER) (test code = 7.43 7.35-7.45 383) PCO2 ARTERIAL (BEAKER) (test code 37 mmHg 35-45 = 384) PO2 ARTERIAL (BEAKER) (test code 448 mmHg 80-90 H = 385) O2 SATURATION ARTERIAL (BEAKER) 99.9 % 96.0-97.0 H (test code = 386) HCO3 ARTERIAL (BEAKER) (test code 26 mmol/L 21-29 = 388) BASE EXCESS ARTERIAL (BEAKER) -0.1 mmol/L -2.0-3.0 (test code = 387) PATIENT TEMPERATURE (BEAKER) 29.2 C (test code = 1818) FIO2 (BEAKER) (test code = 1819) 80.0 % SODIUM NA-STAT [id number] 13:58:00 Test Item Value Reference Range Interpretation Comments SODIUM (BEAKER) (test code = 381) 132 meq/L 135-148 L GLUCOSE-STAT [id number] 13:58:00 Test Item Value Reference Range Interpretation Comments GLUCOSE RANDOM (BEAKER) (test code 166 mg/dL 70-110 H = 652) HGB/HCT (H&H) - STAT [id number] 13:58:00 Test Item Value Reference Range Interpretation Comments HEMOGLOBIN (BEAKER) (test code = 7.5 g/dL 12.0-15.0 L 410) HEMATOCRIT (BEAKER) (test code = 22.0 % 36.0-45.0 L 411) POTASSIUM-STAT [id number] 13:57:00 Test Item Value Reference Range Interpretation Comments POTASSIUM (BEAKER) (test code = 4.7 meq/L 3.6-5.5 379) BLOOD GAS, [id number] 13:35:00 Test Item Value Reference Range Interpretation Comments PH ARTERIAL (BEAKER) (test code = 7.51 7.35-7.45 H 383) PCO2 ARTERIAL (BEAKER) (test code 33 mmHg 35-45 L = 384) PO2 ARTERIAL (BEAKER) (test code = 453 mmHg 80-90 H 385) O2 SATURATION ARTERIAL (BEAKER) 99.9 % 96.0-97.0 H (test code = 386) HCO3 ARTERIAL (BEAKER) (test code 28 mmol/L 21-29 = 388) BASE EXCESS ARTERIAL (BEAKER) 2.7 mmol/L -2.0-3.0 (test code = 387) PATIENT TEMPERATURE (BEAKER) (test 29.2 C code = 1818) FIO2 (BEAKER) (test code = 1819) 80.0 % GLUCOSE-STAT [id number] 13:35:00 Test Item Value Reference Range Interpretation Comments GLUCOSE RANDOM (BEAKER) (test code 130 mg/dL 70-110 H = 652) HGB/HCT (H&H) - STAT [id number] 13:35:00 Test Item Value Reference Range Interpretation Comments HEMOGLOBIN (BEAKER) (test code = 6.7 g/dL 12.0-15.0 L 410) HEMATOCRIT (BEAKER) (test code = 20.0 % 36.0-45.0 L 411) SODIUM NA-STAT [id number] 13:35:00 Test Item Value Reference Range Interpretation Comments SODIUM (BEAKER) (test code = 381) 133 meq/L 135-148 L POTASSIUM-STAT [id number] 13:34:00 Test Item Value Reference Range Interpretation Comments POTASSIUM (BEAKER) (test code = 4.2 meq/L 3.6-5.5 379) BLOOD GAS, [id number] 13:16:00 Test Item Value Reference Range Interpretation Comments PH ARTERIAL (BEAKER) (test code = 7.42 7.35-7.45 383) PCO2 ARTERIAL (BEAKER) (test code 34 mmHg 35-45 L = 384) PO2 ARTERIAL (BEAKER) (test code 375 mmHg 80-90 H = 385) O2 SATURATION ARTERIAL (BEAKER) 99.8 % 96.0-97.0 H (test code = 386) HCO3 ARTERIAL (BEAKER) (test code 23 mmol/L 21-29 = 388) BASE EXCESS ARTERIAL (BEAKER) -2.5 mmol/L -2.0-3.0 L (test code = 387) PATIENT TEMPERATURE (BEAKER) 31.5 C (test code = 1818) FIO2 (BEAKER) (test code = 1819) 80.0 % SODIUM NA-STAT [id number] 13:16:00 Test Item Value Reference Range Interpretation Comments SODIUM (BEAKER) (test code = 381) 133 meq/L 135-148 L HGB/HCT (H&H) - STAT [id number] 13:16:00 Test Item Value Reference Range Interpretation Comments HEMOGLOBIN (BEAKER) (test code = 6.3 g/dL 12.0-15.0 L 410) HEMATOCRIT (BEAKER) (test code = 19.0 % 36.0-45.0 L 411) CALCIUM, [id number] 13:15:00 Test Item Value Reference Range Interpretation Comments CALCIUM IONIZED (BEAKER) (test 0.98 mmol/L 1.12-1.27 L code = 698) PH, BLOOD (BEAKER) (test code = 7.34 1810) BLOOD GAS, [id number] 13:15:00 Test Item Value Reference Range Interpretation Comments PH VENOUS (BEAKER) (test code = 7.39 7.32-7.42 701) PCO2 VENOUS (BEAKER) (test code = 38 mmHg 41-51 L 755) PO2 VENOUS (BEAKER) (test code = 43 mmHg 25-40 H 702) O2 SATURATION VENOUS (BEAKER) 90.0 % 40.0-70.0 H (test code = 703) HCO3 VENOUS (BEAKER) (test code = 24 mmol/L 21-29 705) BASE EXCESS VENOUS (BEAKER) (test -2.1 mmol/L -2.0-3.0 L code = 704) PATIENT TEMPERATURE (BEAKER) 31.5 C (test code = 1818) FIO2 (BEAKER) (test code = 1819) 80.0 % GLUCOSE-STAT [id number] 13:14:00 Test Item Value Reference Range Interpretation Comments GLUCOSE RANDOM (BEAKER) (test code = 92 mg/dL 70-110 652) POTASSIUM-STAT [id number] 13:14:00 Test Item Value Reference Range Interpretation Comments POTASSIUM (BEAKER) (test code = 3.9 meq/L 3.6-5.5 379) BLOOD GAS, [id number] 10:54:00 Test Item Value Reference Range Interpretation Comments PH ARTERIAL (BEAKER) (test code = 7.41 7.35-7.45 383) PCO2 ARTERIAL (BEAKER) (test code 39 mmHg 35-45 = 384) PO2 ARTERIAL (BEAKER) (test code 254 mmHg 80-90 H = 385) O2 SATURATION ARTERIAL (BEAKER) 99.6 % 96.0-97.0 H (test code = 386) HCO3 ARTERIAL (BEAKER) (test code 25 mmol/L 21-29 = 388) BASE EXCESS ARTERIAL (BEAKER) -0.3 mmol/L -2.0-3.0 (test code = 387) PATIENT TEMPERATURE (BEAKER) 35.4 C (test code = 1818) FIO2 (BEAKER) (test code = 1819) 100.0 % HGB/HCT (H&H) - STAT [id number] 10:54:00 Test Item Value Reference Range Interpretation Comments HEMOGLOBIN (BEAKER) (test code = 9.3 g/dL 12.0-15.0 L 410) HEMATOCRIT (BEAKER) (test code = 27.0 % 36.0-45.0 L 411) SODIUM NA-STAT [id number] 10:54:00 Test Item Value Reference Range Interpretation Comments SODIUM (BEAKER) (test code = 381) 132 meq/L 135-148 L GLUCOSE-STAT [id number] 10:52:00 Test Item Value Reference Range Interpretation Comments GLUCOSE RANDOM (BEAKER) (test code = 94 mg/dL 70-110 652) POTASSIUM-STAT [id number] 10:52:00 Test Item Value Reference Range Interpretation Comments POTASSIUM (BEAKER) (test code = 4.0 meq/L 3.6-5.5 379) HEMOGLOBIN [id number] 09:50:00 Test Item Value Reference Range Interpretation Comments HEMOGLOBIN A1C (BEAKER) (test code = 10.6 % 4.3-6.1 H 368) PLATELET AGGREGATION: FUNCTION [id number] 08:27:00 Test Item Value Reference Range Interpretation Comments WEAK ADP 63 % 60-91 RESULT(BEAKER) (test code = 2135) PLATELET FUNCTION 60-100% indicates SCREEN INTERP (BEAKER) normal platelet (test code = 2173) function [id number] Toshia Post MD (BEAKER) (test code = (electronic signature) 2766) PLATELET COUNT AGG 198 K/CU MM 150-450 (BEAKER) (test code = 2272) for patients on clopidogrel in past two weeksPOCT-GLUCOSE [id number] 08:11:00 Test Item Value Reference Range Interpretation Comments POC-GLUCOSE METER 116 mg/dL 70-110 H TESTED AT [facility] 6720 (BEAKER) (test code = [place] 1538) [address] [id number] 07:10:00 Test Item Value Reference Range Interpretation Comments PHOSPHORUS (BEAKER) (test code = 4.5 mg/dL 2.3-4.7 604) [id number] 07:10:00 Test Item Value Reference Range Interpretation Comments MAGNESIUM (BEAKER) (test code = 2.1 mg/dL 1.6-2.6 627) BASIC METABOLIC [id number] 07:10:00 Test Item Value Reference Range Interpretation Comments SODIUM (BEAKER) 135 meq/L 136-145 L (test code = 381) POTASSIUM (BEAKER) 4.4 meq/L 3.5-5.1 (test code = 379) CHLORIDE (BEAKER) 106 meq/L 98-107 (test code = 382) CO2 (BEAKER) (test 23 meq/L 22-29 code = 355) BLOOD UREA NITROGEN 40 mg/dL 7-21 H (BEAKER) (test code = 354) CREATININE (BEAKER) 1.67 mg/dL 0.57-1.25 H (test code = 358) GLUCOSE RANDOM 107 mg/dL 70-105 H (BEAKER) (test code = 652) CALCIUM (BEAKER) 8.3 mg/dL 8.4-10.2 L (test code = 697) EGFR (BEAKER) (test 31 mL/min/1.73 ESTIMA HINA GFR IS code = 1092) sq m NOT ACCURATE CREATININE CLEARANCE IN PREDICTING GLOMERULAR FILTRATION RATE . ESTIMATED GFR I S NOT APPLICABLE FOR DIALYSIS PATIEN TS. B-TYPE NATRIURETIC FACTOR (BNP)2017-05-20 06:56:00 Test Item Value Reference Range Interpretation Comments B-TYPE NATRIURETIC PEPTIDE (BEAKER) 552 pg/mL 0-100 H (test code = 700) CBC W/PLT COUNT & AUTO [id number] 06:46:00 Test Item Value Reference Range Interpretation Comments WHITE BLOOD CELL COUNT (BEAKER) 6.2 K/ L 3.5-10.5 (test code = 775) RED BLOOD CELL COUNT (BEAKER) 3.56 M/ L 3.93-5.22 L (test code = 761) HEMOGLOBIN (BEAKER) (test code = 9.1 GM/DL 11.2-15.7 L 410) HEMATOCRIT (BEAKER) (test code = 29.5 % 34.1-44.9 L 411) MEAN CORPUSCULAR VOLUME (BEAKER) 82.9 fL 79.4-94.8 (test code = 753) MEAN CORPUSCULAR HEMOGLOBIN 25.6 pg 25.6-32.2 (BEAKER) (test code = 751) MEAN CORPUSCULAR HEMOGLOBIN CONC 30.8 GM/DL 32.2-35.5 L (BEAKER) (test code = 752) RED CELL DISTRIBUTION WIDTH 14.4 % 11.7-14.4 (BEAKER) (test code = 412) PLATELET COUNT (BEAKER) (test 222 K/CU MM 150-450 code = 756) MEAN PLATELET VOLUME (BEAKER) 10.5 fL 9.4-12.3 (test code = 754) NUCLEATED RED BLOOD CELLS 0 /100 WBC 0-0 (BEAKER) (test code = 413) NEUTROPHILS RELATIVE PERCENT 47 % (BEAKER) (test code = 429) LYMPHOCYTES RELATIVE PERCENT 39 % (BEAKER) (test code = 430) MONOCYTES RELATIVE PERCENT 8 % (BEAKER) (test code = 431) EOSINOPHILS RELATIVE PERCENT 5 % (BEAKER) (test code = 432) BASOPHILS RELATIVE PERCENT 1 % (BEAKER) (test code = 437) NEUTROPHILS ABSOLUTE COUNT 2.90 K/ L 1.56-6.13 (BEAKER) (test code = 670) LYMPHOCYTES ABSOLUTE COUNT 2.37 K/ L 1.18-3.74 (BEAKER) (test code = 414) MONOCYTES ABSOLUTE COUNT (BEAKER) 0.49 K/ L 0.24-0.36 H (test code = 415) EOSINOPHILS ABSOLUTE COUNT 0.30 K/ L 0.04-0.36 (BEAKER) (test code = 416) BASOPHILS ABSOLUTE COUNT (BEAKER) 0.08 K/ L 0.01-0.08 (test code = 417) IMMATURE GRANULOCYTES-RELATIVE 0 % 0-1 PERCENT (BEAKER) (test code = 2801) CALCIUM, [id number] 06:40:00 Test Item Value Reference Range Interpretation Comments CALCIUM IONIZED (BEAKER) (test 1.06 mmol/L 1.12-1.27 L code = 698) PH, BLOOD (BEAKER) (test code = 7.39 1810) POCT-GLUCOSE [id number] 23:22:00 Test Item Value Reference Range Interpretation Comments POC-GLUCOSE METER 165 mg/dL 70-110 H TESTED AT [facility] 6720 (BEAKER) (test code = MATTHIASAMANDA Osborne [facility] 1538) [address] URINE PROTEIN ELECTROPHORESIS, [id number] 18:02:00 Test Item Value Reference Range Interpretation Comments PROTEIN, URINE 305 mg/dL 0-14 H (BEAKER) (test code = 1569) ALBUMIN URINE ELP 70.9 % (BEAKER) (test code = 1018) GAMMA GLOBULIN URINE 29.1 % (BEAKER) (test code = 1015) UPEP, [id number] (BEAKER) No monoclonal bands (test code = 2604) detected. [id number] Rocio Galindo MD ([facility]) (test code = (electronic signature) 2603) PROTEIN ELECTROPHORESIS, [id number] 17:57:00 Test Item Value Reference Range Interpretation Comments ALBUMIN FRACTION 2.5 g/dL 3.5-5.5 L (BEAKER) (test code = 405) ALPHA 1 FRACTION 0.3 g/dL 0.2-0.4 (BEAKER) (test code = 389) ALPHA 2 FRACTION 0.9 g/dL 0.5-0.9 (BEAKER) (test code = 390) BETA FRACTION (BEAKER) 0.8 g/dL 0.6-1.1 (test code = 392) GAMMA GLOBULIN 1.0 g/dL 0.7-1.7 FRACTION (BEAKER) (test code = 391) INTERPRETATION-119 Decreased albumin with (BEAKER) (test code = concurrent relative 2615) increases in all globulin fractions. No monoclonal bands detected. [id number] Rocio Galindo MD ([facility]) (test code = (electronic signature) 5318) PROTEIN TOTAL SERUM, 5.5 gm/dL 6.0-8.3 L SPEP (BEAKER) (test code = 2660) POCT-GLUCOSE [id number] 17:15:00 Test Item Value Reference Range Interpretation Comments POC-GLUCOSE METER 209 mg/dL 70-110 H TESTED AT [facility] 6720 (BEAKER) (test code = JULIANO RUTH [place] 1538) [address] BLOOD GAS, [id number] 15:54:00 Test Item Value Reference Range Interpretation Comments PH ARTERIAL (BEAKER) (test code = 7.45 7.35-7.45 383) PCO2 ARTERIAL (BEAKER) (test code 38 mmHg 35-45 = 384) PO2 ARTERIAL (BEAKER) (test code = 69 mmHg 80-90 L 385) O2 SATURATION ARTERIAL (BEAKER) 94.5 % 96.0-97.0 L (test code = 386) HCO3 ARTERIAL (BEAKER) (test code 25 mmol/L 21-29 = 388) BASE EXCESS ARTERIAL (BEAKER) 1.3 mmol/L -2.0-3.0 (test code = 387) PATIENT TEMPERATURE (BEAKER) (test 37.0 C code = 1818) FIO2 (BEAKER) (test code = 1819) 36.0 % RAD, CHEST, 1 VIEW, NON [id number] 14:07:00Reason for exam:->SOB, hypoxemiaShould this be performed at the bedside?->YesFINAL REPORT Chest one view AP 05/19/2017 2:06 PM CLINICAL INDICATION: SOB, hyp oxemia COMPARISON: 05/15/2017 IMPRESSION: There are right greater than left small volume pleural effusions. Adjacent dependent pulmonary opacities may reflect atelectasis or pneumonia. The cardiac silhouette is enlarged, but stable. There is central pulmonary vasculature congestion with mild interstitial edema. Signed: Regan Cespedes Verified Date/Time: 05/19/2017 14:07:07 Reading Location:[facility] [id number] Consult Reading Room POCT-GLUCOSE [id number] 11:26:00 Test Item Value Reference Range Interpretation Comments POC-GLUCOSE METER 262 mg/dL 70-110 H TESTED AT [facility] 6720 (BEAKER) (test code = JULIANO Osborne [place] 1538) [id number] POCT-GLUCOSE [id number] 07:37:00 Test Item Value Reference Range Interpretation Comments POC-GLUCOSE METER 170 mg/dL 70-110 H TESTED AT [facility] 6720 (BEAKER) (test code = JULIANO Osborne [place] 1538) [address] CALCIUM, [id number] 06:06:00 Test Item Value Reference Range Interpretation Comments CALCIUM IONIZED (BEAKER) (test 1.05 mmol/L 1.12-1.27 L code = 698) PH, BLOOD (BEAKER) (test code = 7.41 1810) [id number] 05:38:00 Test Item Value Reference Range Interpretation Comments PHOSPHORUS (BEAKER) (test code = 3.9 mg/dL 2.3-4.7 604) [id number] 05:38:00 Test Item Value Reference Range Interpretation Comments MAGNESIUM (BEAKER) (test code = 2.2 mg/dL 1.6-2.6 627) BASIC METABOLIC [id number] 05:38:00 Test Item Value Reference Range Interpretation Comments SODIUM (BEAKER) 135 meq/L 136-145 L (test code = 381) POTASSIUM (BEAKER) 4.5 meq/L 3.5-5.1 (test code = 379) CHLORIDE (BEAKER) 105 meq/L 98-107 (test code = 382) CO2 (BEAKER) (test 24 meq/L 22-29 code = 355) BLOOD UREA NITROGEN 41 mg/dL 7-21 H (BEAKER) (test code = 354) CREATININE (BEAKER) 1.74 mg/dL 0.57-1.25 H (test code = 358) GLUCOSE RANDOM 174 mg/dL 70-105 H (BEAKER) (test code = 652) CALCIUM (BEAKER) 8.4 mg/dL 8.4-10.2 (test code = 697) EGFR (BEAKER) (test 30 mL/min/1.73 ESTIMA HINA GFR IS code = 1092) sq m NOT ACCURATE CREATININE CLEARANCE IN PREDICTING GLOMERULAR FILTRATION RATE . ESTIMATED GFR I S NOT APPLICABLE FOR DIALYSIS PATIEN TS. CBC W/PLT COUNT & AUTO [id number] 05:09:00 Test Item Value Reference Range Interpretation Comments WHITE BLOOD CELL COUNT (BEAKER) 8.5 K/ L 3.5-10.5 (test code = 775) RED BLOOD CELL COUNT (BEAKER) 3.54 M/ L 3.93-5.22 L (test code = 761) HEMOGLOBIN (BEAKER) (test code = 9.1 GM/DL 11.2-15.7 L 410) HEMATOCRIT (BEAKER) (test code = 29.1 % 34.1-44.9 L 411) MEAN CORPUSCULAR VOLUME (BEAKER) 82.2 fL 79.4-94.8 (test code = 753) MEAN CORPUSCULAR HEMOGLOBIN 25.7 pg 25.6-32.2 (BEAKER) (test code = 751) MEAN CORPUSCULAR HEMOGLOBIN CONC 31.3 GM/DL 32.2-35.5 L (BEAKER) (test code = 752) RED CELL DISTRIBUTION WIDTH 14.5 % 11.7-14.4 H (BEAKER) (test code = 412) PLATELET COUNT (BEAKER) (test 201 K/CU MM 150-450 code = 756) MEAN PLATELET VOLUME (BEAKER) 10.7 fL 9.4-12.3 (test code = 754) NUCLEATED RED BLOOD CELLS 0 /100 WBC 0-0 (BEAKER) (test code = 413) NEUTROPHILS RELATIVE PERCENT 56 % (BEAKER) (test code = 429) LYMPHOCYTES RELATIVE PERCENT 32 % (BEAKER) (test code = 430) MONOCYTES RELATIVE PERCENT 7 % (BEAKER) (test code = 431) EOSINOPHILS RELATIVE PERCENT 4 % (BEAKER) (test code = 432) BASOPHILS RELATIVE PERCENT 1 % (BEAKER) (test code = 437) NEUTROPHILS ABSOLUTE COUNT 4.80 K/ L 1.56-6.13 (BEAKER) (test code = 670) LYMPHOCYTES ABSOLUTE COUNT 2.73 K/ L 1.18-3.74 (BEAKER) (test code = 414) MONOCYTES ABSOLUTE COUNT (BEAKER) 0.62 K/ L 0.24-0.36 H (test code = 415) EOSINOPHILS ABSOLUTE COUNT 0.30 K/ L 0.04-0.36 (BEAKER) (test code = 416) BASOPHILS ABSOLUTE COUNT (BEAKER) 0.06 K/ L 0.01-0.08 (test code = 417) IMMATURE GRANULOCYTES-RELATIVE 0 % 0-1 PERCENT (BEAKER) (test code = 2801) POCT-GLUCOSE [id number] 22:08:00 Test Item Value Reference Range Interpretation Comments POC-GLUCOSE METER 263 mg/dL 70-110 H TESTED AT [place] [address] (BEAKER) (test code = JULIANO Osborne [place] 1538) [address] POCT-GLUCOSE [id number] 17:20:00 Test Item Value Reference Range Interpretation Comments POC-GLUCOSE METER 233 mg/dL 70-110 H TESTED AT [place] [address] (BEAKER) (test code = JULIANO sOborne [facility] 1538) [address] POCT-GLUCOSE [id number] 08:28:00 Test Item Value Reference Range Interpretation Comments POC-GLUCOSE METER 154 mg/dL 70-110 H TESTED AT [place] [address] ([facility] (test code = JULIANO Osborne [facility] 1538) [address] BASIC METABOLIC [id number] 06:41:00 Test Item Value Reference Range Interpretation Comments SODIUM (BEAKER) 135 meq/L 136-145 L (test code = 381) POTASSIUM (BEAKER) 4.6 meq/L 3.5-5.1 (test code = 379) CHLORIDE (BEAKER) 104 meq/L 98-107 (test code = 382) CO2 (BEAKER) (test 23 meq/L 22-29 code = 355) BLOOD UREA NITROGEN 39 mg/dL 7-21 H (BEAKER) (test code = 354) CREATININE (BEAKER) 1.77 mg/dL 0.57-1.25 H (test code = 358) GLUCOSE RANDOM 173 mg/dL 70-105 H (BEAKER) (test code = 652) CALCIUM (BEAKER) 8.6 mg/dL 8.4-10.2 (test code = 697) EGFR (BEAKER) (test 29 mL/min/1.73 ESTIMA HINA GFR IS code = 1092) sq m NOT ACCURATE CREATININE CLEARANCE IN PREDICTING GLOMERULAR FILTRATION RATE . ESTIMATED GFR I S NOT APPLICABLE FOR DIALYSIS PATIEN TS. [id number] 06:35:00 Test Item Value Reference Range Interpretation Comments PHOSPHORUS (BEAKER) (test code = 4.1 mg/dL 2.3-4.7 604) [id number] 06:35:00 Test Item Value Reference Range Interpretation Comments MAGNESIUM (BEAKER) (test code = 2.1 mg/dL 1.6-2.6 627) CALCIUM, [id number] 06:22:00 Test Item Value Reference Range Interpretation Comments CALCIUM IONIZED (BEAKER) (test 1.10 mmol/L 1.12-1.27 L code = 698) PH, BLOOD (BEAKER) (test code = 7.38 1810) CBC W/PLT COUNT & AUTO [id number] 06:04:00 Test Item Value Reference Range Interpretation Comments WHITE BLOOD CELL COUNT (BEAKER) 9.3 K/ L 3.5-10.5 (test code = 775) RED BLOOD CELL COUNT (BEAKER) 4.15 M/ L 3.93-5.22 (test code = 761) HEMOGLOBIN (BEAKER) (test code = 10.6 GM/DL 11.2-15.7 L 410) HEMATOCRIT (BEAKER) (test code = 34.2 % 34.1-44.9 411) MEAN CORPUSCULAR VOLUME (BEAKER) 82.4 fL 79.4-94.8 (test code = 753) MEAN CORPUSCULAR HEMOGLOBIN 25.5 pg 25.6-32.2 L (BEAKER) (test code = 751) MEAN CORPUSCULAR HEMOGLOBIN CONC 31.0 GM/DL 32.2-35.5 L (BEAKER) (test code = 752) RED CELL DISTRIBUTION WIDTH 14.6 % 11.7-14.4 H (BEAKER) (test code = 412) PLATELET COUNT (BEAKER) (test 183 K/CU MM 150-450 code = 756) MEAN PLATELET VOLUME (BEAKER) 11.0 fL 9.4-12.3 (test code = 754) NUCLEATED RED BLOOD CELLS 0 /100 WBC 0-0 (BEAKER) (test code = 413) NEUTROPHILS RELATIVE PERCENT 66 % (BEAKER) (test code = 429) LYMPHOCYTES RELATIVE PERCENT 24 % (BEAKER) (test code = 430) MONOCYTES RELATIVE PERCENT 7 % (BEAKER) (test code = 431) EOSINOPHILS RELATIVE PERCENT 3 % (BEAKER) (test code = 432) BASOPHILS RELATIVE PERCENT 1 % (BEAKER) (test code = 437) NEUTROPHILS ABSOLUTE COUNT 6.15 K/ L 1.56-6.13 H ([facility]) (test code = 670) LYMPHOCYTES ABSOLUTE COUNT 2.20 K/ L 1.18-3.74 ([facility]) (test code = 414) MONOCYTES ABSOLUTE COUNT (BEAKER) 0.62 K/ L 0.24-0.36 H (test code = 415) EOSINOPHILS ABSOLUTE COUNT 0.24 K/ L 0.04-0.36 (AKER) (test code = 416) BASOPHILS ABSOLUTE COUNT (AKER) 0.06 K/ L 0.01-0.08 (test code = 417) IMMATURE GRANULOCYTES-RELATIVE 0 % 0-1 PERCENT ([facility]) (test code = 2801) POCT-GLUCOSE [id number] 03:44:00 Test Item Value Reference Range Interpretation Comments POC-GLUCOSE METER 220 mg/dL 70-110 H TESTED AT [place] [address] ([facility]) (test code = [facility] 1538) [address] POCT-GLUCOSE [id number] 18:27:00 Test Item Value Reference Range Interpretation Comments POC-GLUCOSE METER 256 mg/dL 70-110 H TESTED AT [place] [address] ([facility]) (test code = [facility] 1538) [address] POCT-GLUCOSE [id number] 15:45:00 Test Item Value Reference Range Interpretation Comments POC-GLUCOSE METER 278 mg/dL 70-110 H TESTED AT [place] [address] ([facility]) (test code = [facility] 1538) [address] POCT-GLUCOSE [id number] 13:22:00 Test Item Value Reference Range Interpretation Comments POC-GLUCOSE METER 278 mg/dL 70-110 H TESTED AT [place] [address] ([facility]) (test code = [facility] 1538) [address] PLATELET AGGREGATION: FUNCTION [id number] 13:18:00 Test Item Value Reference Range Interpretation Comments WEAK ADP 66 % 60-91 RESULT([facility]) (test code = 2135) PLATELET FUNCTION 60-100% indicates SCREEN INTERP ([facility]) normal platelet (test code = 2173) function [id number] Rigoberto Duenas MD ([facility]) (test code = (electronic signature) 3613) PLATELET COUNT AGG 204 K/CU MM 150-450 ([facility]) (test code = 2656) POCT-GLUCOSE [id number] 08:27:00 Test Item Value Reference Range Interpretation Comments POC-GLUCOSE METER 189 mg/dL 70-110 H TESTED AT [facility] 6720 (BEAKER) (test code = JULIANO [place] 1538) [address] CALCIUM, [id number] 06:12:00 Test Item Value Reference Range Interpretation Comments CALCIUM IONIZED (BEAKER) (test 1.07 mmol/L 1.12-1.27 L code = 698) PH, BLOOD (BEAKER) (test code = 7.36 1810) [id number] 05:43:00 Test Item Value Reference Range Interpretation Comments PHOSPHORUS (BEAKER) (test code = 3.6 mg/dL 2.3-4.7 604) [id number] 05:43:00 Test Item Value Reference Range Interpretation Comments MAGNESIUM (BEAKER) (test code = 2.1 mg/dL 1.6-2.6 627) BASIC METABOLIC [id number] 05:43:00 Test Item Value Reference Range Interpretation Comments SODIUM (BEAKER) 137 meq/L 136-145 (test code = 381) POTASSIUM (BEAKER) 4.7 meq/L 3.5-5.1 (test code = 379) CHLORIDE (BEAKER) 107 meq/L 98-107 (test code = 382) CO2 (BEAKER) (test 24 meq/L 22-29 code = 355) BLOOD UREA NITROGEN 38 mg/dL 7-21 H (BEAKER) (test code = 354) CREATININE (BEAKER) 1.72 mg/dL 0.57-1.25 H (test code = 358) GLUCOSE RANDOM 198 mg/dL 70-105 H (BEAKER) (test code = 652) CALCIUM (BEAKER) 8.3 mg/dL 8.4-10.2 L (test code = 697) EGFR (BEAKER) (test 30 mL/min/1.73 ESTIMA HINA GFR IS code = 1092) sq m NOT ACCURATE CREATININE CLEARANCE IN PREDICTING GLOMERULAR FILTRATION RATE . ESTIMATED GFR I S NOT APPLICABLE FOR DIALYSIS PATIEN TS. CBC W/PLT COUNT & AUTO [id number] 05:05:00 Test Item Value Reference Range Interpretation Comments WHITE BLOOD CELL COUNT (BEAKER) 8.6 K/ L 3.5-10.5 (test code = 775) RED BLOOD CELL COUNT (BEAKER) 4.20 M/ L 3.93-5.22 (test code = 761) HEMOGLOBIN (BEAKER) (test code = 10.7 GM/DL 11.2-15.7 L 410) HEMATOCRIT (BEAKER) (test code = 34.7 % 34.1-44.9 411) MEAN CORPUSCULAR VOLUME (BEAKER) 82.6 fL 79.4-94.8 (test code = 753) MEAN CORPUSCULAR HEMOGLOBIN 25.5 pg 25.6-32.2 L (BEAKER) (test code = 751) MEAN CORPUSCULAR HEMOGLOBIN CONC 30.8 GM/DL 32.2-35.5 L (BEAKER) (test code = 752) RED CELL DISTRIBUTION WIDTH 14.7 % 11.7-14.4 H (BEAKER) (test code = 412) PLATELET COUNT (BEAKER) (test 198 K/CU MM 150-450 code = 756) MEAN PLATELET VOLUME (BEAKER) 11.1 fL 9.4-12.3 (test code = 754) NUCLEATED RED BLOOD CELLS 0 /100 WBC 0-0 (BEAKER) (test code = 413) NEUTROPHILS RELATIVE PERCENT 63 % (BEAKER) (test code = 429) LYMPHOCYTES RELATIVE PERCENT 28 % (BEAKER) (test code = 430) MONOCYTES RELATIVE PERCENT 6 % (BEAKER) (test code = 431) EOSINOPHILS RELATIVE PERCENT 3 % (BEAKER) (test code = 432) BASOPHILS RELATIVE PERCENT 1 % (BEAKER) (test code = 437) NEUTROPHILS ABSOLUTE COUNT 5.41 K/ L 1.56-6.13 (BEAKER) (test code = 670) LYMPHOCYTES ABSOLUTE COUNT 2.37 K/ L 1.18-3.74 (BEAKER) (test code = 414) MONOCYTES ABSOLUTE COUNT (BEAKER) 0.50 K/ L 0.24-0.36 H (test code = 415) EOSINOPHILS ABSOLUTE COUNT 0.27 K/ L 0.04-0.36 (BEAKER) (test code = 416) BASOPHILS ABSOLUTE COUNT (BEAKER) 0.06 K/ L 0.01-0.08 (test code = 417) IMMATURE GRANULOCYTES-RELATIVE 0 % 0-1 PERCENT (BEAKER) (test code = 2801) POCT-GLUCOSE [id number] 21:32:00 Test Item Value Reference Range Interpretation Comments POC-GLUCOSE METER 176 mg/dL 70-110 H TESTED AT [place] [address] ([facility]) (test code = [facility] 1538) [address] POCT-GLUCOSE [id number] 20:27:00 Test Item Value Reference Range Interpretation Comments POC-GLUCOSE METER 161 mg/dL 70-110 H TESTED AT [place] [address] ([facility]) (test code = [facility] 1538) [address] POCT-GLUCOSE [id number] 18:23:00 Test Item Value Reference Range Interpretation Comments POC-GLUCOSE METER 185 mg/dL 70-110 H TESTED AT [place] [address] ([facility]) (test code = [facility] 1538) [address] POCT-GLUCOSE [id number] 13:26:00 Test Item Value Reference Range Interpretation Comments POC-GLUCOSE METER 282 mg/dL 70-110 H TESTED AT [place] [address] ([facility]) (test code = [facility] 1538) [address] URINE [id number] 10:12:00 Test Item Value Reference Range Interpretation Comments CULTURE ([facility]) (test >100,000 col/mL skin code = 1095) todd POCT-GLUCOSE [id number] 09:01:00 Test Item Value Reference Range Interpretation Comments POC-GLUCOSE METER 268 mg/dL 70-110 H TESTED AT [place] [address] ([facility]) (test code = [facility] 1538) [address] CALCIUM, [id number] 05:39:00 Test Item Value Reference Range Interpretation Comments CALCIUM IONIZED (BEAKER) (test 0.84 mmol/L 1.12-1.27 L code = 698) PH, BLOOD (AKER) (test code = 7.35 2330) BASIC METABOLIC [id number] 05:07:00 Test Item Value Reference Range Interpretation Comments SODIUM (BEAKER) 135 meq/L 136-145 L (test code = 381) POTASSIUM (BEAKER) 4.9 meq/L 3.5-5.1 (test code = 379) CHLORIDE (BEAKER) 106 meq/L 98-107 (test code = 382) CO2 (BEAKER) (test 22 meq/L 22-29 code = 355) BLOOD UREA NITROGEN 43 mg/dL 7-21 H (BEAKER) (test code = 354) CREATININE (BEAKER) 2.00 mg/dL 0.57-1.25 H (test code = 358) GLUCOSE RANDOM 161 mg/dL 70-105 H (BEAKER) (test code = 652) CALCIUM (BEAKER) 8.2 mg/dL 8.4-10.2 L (test code = 697) EGFR (BEAKER) (test 25 mL/min/1.73 ESTIMA HINA GFR IS code = 1092) sq m NOT ACCURATE CREATININE CLEARANCE IN PREDICTING GLOMERULAR FILTRATION RATE . ESTIMATED GFR I S NOT APPLICABLE FOR DIALYSIS PATIEN TS. [id number] 05:06:00 Test Item Value Reference Range Interpretation Comments PHOSPHORUS (BEAKER) (test code = 3.2 mg/dL 2.3-4.7 604) [id number] 05:06:00 Test Item Value Reference Range Interpretation Comments MAGNESIUM (BEAKER) (test code = 2.3 mg/dL 1.6-2.6 627) CBC W/PLT COUNT & AUTO [id number] 04:42:00 Test Item Value Reference Range Interpretation Comments WHITE BLOOD CELL COUNT (BEAKER) 9.5 K/ L 3.5-10.5 (test code = 775) RED BLOOD CELL COUNT (BEAKER) 4.17 M/ L 3.93-5.22 (test code = 761) HEMOGLOBIN (BEAKER) (test code = 10.5 GM/DL 11.2-15.7 L 410) HEMATOCRIT (BEAKER) (test code = 34.2 % 34.1-44.9 411) MEAN CORPUSCULAR VOLUME (BEAKER) 82.0 fL 79.4-94.8 (test code = 753) MEAN CORPUSCULAR HEMOGLOBIN 25.2 pg 25.6-32.2 L (BEAKER) (test code = 751) MEAN CORPUSCULAR HEMOGLOBIN CONC 30.7 GM/DL 32.2-35.5 L (BEAKER) (test code = 752) RED CELL DISTRIBUTION WIDTH 14.6 % 11.7-14.4 H (BEAKER) (test code = 412) PLATELET COUNT (BEAKER) (test 177 K/CU MM 150-450 code = 756) MEAN PLATELET VOLUME (BEAKER) 11.1 fL 9.4-12.3 (test code = 754) NUCLEATED RED BLOOD CELLS 0 /100 WBC 0-0 (BEAKER) (test code = 413) NEUTROPHILS RELATIVE PERCENT 55 % (BEAKER) (test code = 429) LYMPHOCYTES RELATIVE PERCENT 36 % (BEAKER) (test code = 430) MONOCYTES RELATIVE PERCENT 6 % (BEAKER) (test code = 431) EOSINOPHILS RELATIVE PERCENT 2 % (BEAKER) (test code = 432) BASOPHILS RELATIVE PERCENT 1 % (BEAKER) (test code = 437) NEUTROPHILS ABSOLUTE COUNT 5.20 K/ L 1.56-6.13 (BEAKER) (test code = 670) LYMPHOCYTES ABSOLUTE COUNT 3.37 K/ L 1.18-3.74 (BEAKER) (test code = 414) MONOCYTES ABSOLUTE COUNT (BEAKER) 0.59 K/ L 0.24-0.36 H (test code = 415) EOSINOPHILS ABSOLUTE COUNT 0.21 K/ L 0.04-0.36 (BEAKER) (test code = 416) BASOPHILS ABSOLUTE COUNT (BEAKER) 0.07 K/ L 0.01-0.08 (test code = 417) IMMATURE GRANULOCYTES-RELATIVE 0 % 0-1 PERCENT (BEAKER) (test code = 2801) RHEUMATOID FACTOR AB, REFLEX TO [id number] 01:52:00 Test Item Value Reference Range Interpretation Comments RHEUMATOID FACTOR ([facility]) (test Negative code = 573) POCT-GLUCOSE [id number] 21:57:00 Test Item Value Reference Range Interpretation Comments POC-GLUCOSE METER 105 mg/dL 70-110 TESTED AT [facility] 67 ([facility]) (test code = JULIANO Osborne [place] [address]) [address] POCT-GLUCOSE [id number] 18:11:00 Test Item Value Reference Range Interpretation Comments POC-GLUCOSE METER 312 mg/dL 70-110 H Notified Dylon Hassan MD/TESTED ([facility]) (test code = AT [facility] [address] [place] [address]) [facility] 7703 0 PET, CARDIAC PERFUSION MULTIPLE STUDIES, REST AND [id number] 16:28:00 Reason for exam:->pvcs, known cadFINAL REPORT PROCEDURE: Rest/Stress MYOCARDIAL PERFUSION PET with regadenoson\XA9\ CPT CODE: 03245 INDICATION: Defined extent and severity of known [...] is 23%. LVEF at stress is 36%. Shift Supervisor CT images revealed a right pleural effusion [...] perfusion defect (particularly if anterior)(JACC. 2012;[phone]([phone].) Signed: Natan Lopez Verified Date/Time: 05/15/2017 16:28:12 Reading Location: [address] ReadingRoom RAD, CHEST, 1 VIEW, NON [id number] 15:56:00Reason for exam:->SOBShould this be performed at the bedside?->YesFINAL REPORT Comparison: 05/14/2017 TECHNIQUE: Single view of the chest FINDINGS: There is a small right pleural effusion with nonspecific airspace disease. This is unchanged. Left lung is grossly clear. Cardiac silhouette is enlarged. IMPRESSION: 1. No acute cardiopulmonary disease. Signed: Sixto Monk MDReport Verified Date/Time: 05/15/2017 15:56:39 [facility] POCT-GLUCOSE [id number] 12:54:00 Test Item Value Reference Range Interpretation Comments POC-GLUCOSE METER 308 mg/dL 70-110 H Notified Dylon Hassan MD/NATHAN ([facility]ERT) (test code = AT [facility] [address] [place] [address]) [facility] 7703 0 U/S, RENAL WITH [id number] 11:04:00Reason for exam:->tracy, htnShould this be performed [...] Hobbs Verified Date/Time: 05/15/2017 11:04:01 Reading Location: [address] Ultrasound Reading Room ANA TITER AND [id number] 10:57:00 Test Item Value Reference Range Interpretation Comments ROGER TITER (BEAKER) (test code = :160 1541) ROGER PATTERN (BEAKER) (test code = Speckled 1781) ANTI-NUCLEAR ANTIBODY (ROGER)2017-05-15 10:56:00 Test Item Value Reference Range Interpretation Comments ANTI-NUCLEAR ANTIBODY (ROGER) (BEAKER) Positive Negative A (test code = 418) CALCIUM, [id number] 06:00:00 Test Item Value Reference Range Interpretation Comments CALCIUM IONIZED (BEAKER) (test 1.07 mmol/L 1.12-1.27 L code = 698) PH, BLOOD (BEAKER) (test code = 7.28 1810) HEPATITIS PANEL, [id number] 05:01:00 Test Item Value Reference Range Interpretation Comments HEPATITIS A IGM ANTIBODY (BEAKER) Nonreactive Nonreactive (test code = 498) HEPATITIS B CORE IGM ANTIBODY Nonreactive Nonreactive (BEAKER) (test code = 645) HEPATITIS C ANTIBODY (BEAKER) Nonreactive Nonreactive (test code = 367) HEPATITIS B SURFACE ANTIGEN (2) Nonreactive Nonreactive (BEAKER) (test code = 2585) BASIC METABOLIC [id number] 04:48:00 Test Item Value Reference Range Interpretation Comments SODIUM (BEAKER) 135 meq/L 136-145 L (test code = 381) POTASSIUM (BEAKER) 5.2 meq/L 3.5-5.1 H (test code = 379) CHLORIDE (BEAKER) 104 meq/L 98-107 (test code = 382) CO2 (BEAKER) (test 22 meq/L 22-29 code = 355) BLOOD UREA NITROGEN 46 mg/dL 7-21 H (BEAKER) (test code = 354) CREATININE (BEAKER) 2.64 mg/dL 0.57-1.25 H (test code = 358) GLUCOSE RANDOM 176 mg/dL 70-105 H (BEAKER) (test code = 652) CALCIUM (BEAKER) 8.2 mg/dL 8.4-10.2 L (test code = 697) EGFR (BEAKER) (test 18 mL/min/1.73 ESTIMA HINA GFR IS code = 1092) sq m NOT ACCURATE CREATININE CLEARANCE IN PREDICTING GLOMERULAR FILTRATION RATE . ESTIMATED GFR I S NOT APPLICABLE FOR DIALYSIS PATIEN TS. URIC [id number] 04:41:00 Test Item Value Reference Range Interpretation Comments URIC ACID (BEAKER) (test code = 10.3 mg/dL 2.6-7.2 H 773) [id number] 04:41:00 Test Item Value Reference Range Interpretation Comments MAGNESIUM (BEAKER) (test code = 2.0 mg/dL 1.6-2.6 627) [id number] 04:41:00 Test Item Value Reference Range Interpretation Comments PHOSPHORUS (BEAKER) (test code = 4.2 mg/dL 2.3-4.7 604) COMPLEMENT COMPONENT [id number] 04:38:00 Test Item Value Reference Range Interpretation Comments C4 COMPLEMENT (BEAKER) (test code = 28 mg/dL 15-57 394) COMPLEMENT COMPONENT [id number] 04:38:00 Test Item Value Reference Range Interpretation Comments C3 COMPLEMENT (BEAKER) (test code = 103 mg/dL 82-193 393) CBC W/PLT COUNT & AUTO [id number] 04:22:00 Test Item Value Reference Range Interpretation Comments WHITE BLOOD CELL COUNT (BEAKER) 11.0 K/ L 3.5-10.5 H (test code = 775) RED BLOOD CELL COUNT (BEAKER) 4.25 M/ L 3.93-5.22 (test code = 761) HEMOGLOBIN (BEAKER) (test code = 10.6 GM/DL 11.2-15.7 L 410) HEMATOCRIT (BEAKER) (test code = 35.3 % 34.1-44.9 411) MEAN CORPUSCULAR VOLUME (BEAKER) 83.1 fL 79.4-94.8 (test code = 753) MEAN CORPUSCULAR HEMOGLOBIN 24.9 pg 25.6-32.2 L (BEAKER) (test code = 751) MEAN CORPUSCULAR HEMOGLOBIN CONC 30.0 GM/DL 32.2-35.5 L (BEAKER) (test code = 752) RED CELL DISTRIBUTION WIDTH 14.5 % 11.7-14.4 H (BEAKER) (test code = 412) PLATELET COUNT (BEAKER) (test 185 K/CU MM 150-450 code = 756) MEAN PLATELET VOLUME (BEAKER) 10.9 fL 9.4-12.3 (test code = 754) NUCLEATED RED BLOOD CELLS 0 /100 WBC 0-0 (BEAKER) (test code = 413) NEUTROPHILS RELATIVE PERCENT 61 % (BEAKER) (test code = 429) LYMPHOCYTES RELATIVE PERCENT 31 % (BEAKER) (test code = 430) MONOCYTES RELATIVE PERCENT 5 % (BEAKER) (test code = 431) EOSINOPHILS RELATIVE PERCENT 2 % (BEAKER) (test code = 432) BASOPHILS RELATIVE PERCENT 1 % (BEAKER) (test code = 437) NEUTROPHILS ABSOLUTE COUNT 6.72 K/ L 1.56-6.13 H (BEAKER) (test code = 670) LYMPHOCYTES ABSOLUTE COUNT 3.35 K/ L 1.18-3.74 ([facility]) (test code = 414) MONOCYTES ABSOLUTE COUNT (BEAKER) 0.59 K/ L 0.24-0.36 H (test code = 415) EOSINOPHILS ABSOLUTE COUNT 0.21 K/ L 0.04-0.36 (BEAKER) (test code = 416) BASOPHILS ABSOLUTE COUNT (AKER) 0.06 K/ L 0.01-0.08 (test code = 417) IMMATURE GRANULOCYTES-RELATIVE 0 % 0-1 PERCENT ([facility]) (test code = 2801) POCT-GLUCOSE [id number] 21:46:00 Test Item Value Reference Range Interpretation Comments POC-GLUCOSE METER 173 mg/dL 70-110 H TESTED AT [facility] 67 ([facility]) (test code = [facility] Dylon [facility] 1538) [address] POCT-GLUCOSE [id number] 21:46:00 Test Item Value Reference Range Interpretation Comments POC-GLUCOSE METER 154 mg/dL 70-110 H TESTED AT [facility] 67 ([facility]) (test code = [facility] 1538) [address] POCT-GLUCOSE [id number] 18:17:00 Test Item Value Reference Range Interpretation Comments POC-GLUCOSE METER 175 mg/dL 70-110 H TESTED AT [place] [address] ([facility]) (test code = [facility] 1538) [address] RAD, CHEST, 1 VIEW, NON [id number] 14:56:00Reason for exam:->SOBShould this be performed at the bedside?->YesFINAL REPORT INDICATION: SOB COMPARISON: May 13, 2017 TECHNIQUE: Chest radiograph, single view, portable technique. FINDINGS / IMPRESSION: Enlarged heart shadow, small rightpleural effusion, and pulmonary venous congestion, again demonstrated. No pneumothorax or consolidation. Osseous structures unremarkable. Signed: Thania Jean Verified Date/Time: 05/14/2017 14:56:58 Reading Location: [facility] Mammo Reading Room POCT-GLUCOSE [id number] 12:18:00 Test Item Value Reference Range Interpretation Comments POC-GLUCOSE METER 313 mg/dL 70-110 H TESTED AT [facility] 6720 (BEAKER) (test code = [place] 1538) [address] HIV-1 ANTIGEN WITH HIV-1/2 [id number] 12:07:00 Test Item Value Reference Range Interpretation Comments HIV-1 ANTIGEN WITH HIV 1\T\2 Nonreactive Nonreactive ANTIBODY (2) (BEAKER) (test code = 2586) CALCIUM, [id number] 06:37:00 Test Item Value Reference Range Interpretation Comments CALCIUM IONIZED (BEAKER) (test 1.08 mmol/L 1.12-1.27 L code = 698) PH, BLOOD (BEAKER) (test code = 7.25 8770) BASIC METABOLIC [id number] 06:26:00 Test Item Value Reference Range Interpretation Comments SODIUM (BEAKER) 134 meq/L 136-145 L (test code = 381) POTASSIUM (BEAKER) 5.1 meq/L 3.5-5.1 (test code = 379) CHLORIDE (BEAKER) 103 meq/L 98-107 (test code = 382) CO2 (BEAKER) (test 25 meq/L 22-29 code = 355) BLOOD UREA NITROGEN 45 mg/dL 7-21 H (BEAKER) (test code = 354) CREATININE (BEAKER) 2.92 mg/dL 0.57-1.25 H (test code = 358) GLUCOSE RANDOM 163 mg/dL 70-105 H (BEAKER) (test code = 652) CALCIUM (BEAKER) 8.1 mg/dL 8.4-10.2 L (test code = 697) EGFR (BEAKER) (test 16 mL/min/1.73 ESTIMA HINA GFR IS code = 1092) sq m NOT ACCURATE CREATININE CLEARANCE IN PREDICTING GLOMERULAR FILTRATION RATE . ESTIMATED GFR I S NOT APPLICABLE FOR DIALYSIS PATIEN TS. B-TYPE NATRIURETIC FACTOR (BNP)2017-05-14 06:26:00 Test Item Value Reference Range Interpretation Comments B-TYPE NATRIURETIC PEPTIDE (BEAKER) 474 pg/mL 0-100 H (test code = 700) [id number] 06:25:00 Test Item Value Reference Range Interpretation Comments PHOSPHORUS (BEAKER) (test code = 5.7 mg/dL 2.3-4.7 H 604) [id number] 06:25:00 Test Item Value Reference Range Interpretation Comments MAGNESIUM (BEAKER) (test code = 1.5 mg/dL 1.6-2.6 L 627) CBC W/PLT COUNT & AUTO [id number] 06:07:00 Test Item Value Reference Range Interpretation Comments WHITE BLOOD CELL COUNT (BEAKER) 8.9 K/ L 3.5-10.5 (test code = 775) RED BLOOD CELL COUNT (BEAKER) 4.32 M/ L 3.93-5.22 (test code = 761) HEMOGLOBIN (BEAKER) (test code = 11.0 GM/DL 11.2-15.7 L 410) HEMATOCRIT (BEAKER) (test code = 36.6 % 34.1-44.9 411) MEAN CORPUSCULAR VOLUME (BEAKER) 84.7 fL 79.4-94.8 (test code = 753) MEAN CORPUSCULAR HEMOGLOBIN 25.5 pg 25.6-32.2 L (BEAKER) (test code = 751) MEAN CORPUSCULAR HEMOGLOBIN CONC 30.1 GM/DL 32.2-35.5 L (BEAKER) (test code = 752) RED CELL DISTRIBUTION WIDTH 14.6 % 11.7-14.4 H (BEAKER) (test code = 412) PLATELET COUNT (BEAKER) (test 201 K/CU MM 150-450 code = 756) MEAN PLATELET VOLUME (BEAKER) 11.1 fL 9.4-12.3 (test code = 754) NUCLEATED RED BLOOD CELLS 0 /100 WBC 0-0 (BEAKER) (test code = 413) NEUTROPHILS RELATIVE PERCENT 55 % (BEAKER) (test code = 429) LYMPHOCYTES RELATIVE PERCENT 36 % (BEAKER) (test code = 430) MONOCYTES RELATIVE PERCENT 5 % (BEAKER) (test code = 431) EOSINOPHILS RELATIVE PERCENT 3 % (BEAKER) (test code = 432) BASOPHILS RELATIVE PERCENT 1 % (BEAKER) (test code = 437) NEUTROPHILS ABSOLUTE COUNT 4.85 K/ L 1.56-6.13 (BEAKER) (test code = 670) LYMPHOCYTES ABSOLUTE COUNT 3.18 K/ L 1.18-3.74 (BEAKER) (test code = 414) MONOCYTES ABSOLUTE COUNT (BEAKER) 0.47 K/ L 0.24-0.36 H (test code = 415) EOSINOPHILS ABSOLUTE COUNT 0.25 K/ L 0.04-0.36 (BEAKER) (test code = 416) BASOPHILS ABSOLUTE COUNT (BEAKER) 0.07 K/ L 0.01-0.08 (test code = 417) IMMATURE GRANULOCYTES-RELATIVE 0 % 0-1 PERCENT (BEAKER) (test code = 2801) POCT-GLUCOSE [id number] 22:38:00 Test Item Value Reference Range Interpretation Comments POC-GLUCOSE METER 262 mg/dL 70-110 H TESTED AT [facility] 6720 (BEAKER) (test code = [place] 1538) [address] PROTEIN, RANDOM [id number] 22:18:00 Test Item Value Reference Range Interpretation Comments PROTEIN, URINE (BEAKER) (test code 641 mg/dL 0-14 H = 1569) CREATININE, RANDOM [id number] 22:07:00 Test Item Value Reference Range Interpretation Comments CREATININE URINE (BEAKER) (test 124.9 mg/dL code = 375) Reference Range: No NormalsURINALYSIS W/ [id number] 22:03:00 Test Item Value Reference Range Interpretation Comments COLOR (BEAKER) (test code = Yellow 470) CLARITY (BEAKER) (test code = Cloudy 469) SPECIFIC GRAVITY UA (BEAKER) 1.015 1.001-1.035 (test code = 468) PH UA (BEAKER) (test code = 5.5 5.0-8.0 467) PROTEIN UA (BEAKER) (test code 300 mg/dL Negative A = 464) GLUCOSE UA (BEAKER) (test code 300 mg/dL Negative A = 365) KETONES UA (BEAKER) (test code Negative Negative = 371) BILIRUBIN UA (BEAKER) (test Negative Negative code = 462) BLOOD UA (BEAKER) (test code = Trace Negative A 461) NITRITE UA (BEAKER) (test code Negative Negative = 465) LEUKOCYTE ESTERASE UA (BEAKER) Moderate Negative A (test code = 466) UROBILINOGEN UA (BEAKER) (test 0.2 mg/dL 0.2-1.0 code = 463) RBC UA (BEAKER) (test code = 11 /HPF 519) WBC UA (BEAKER) (test code = 36 /HPF 520) MUCUS (BEAKER) (test code = Few 1574) SQUAMOUS EPITHELIAL (BEAKER) 12 /HPF (test code = 516) HYALINE CASTS (BEAKER) (test 66 /LPF code = 514) CASTS (BEAKER) (test code = 112 /LPF 1579) YEAST (BEAKER) (test code = Moderate 1585) SOURCE(BEAKER) (test code = Urine, Voided 5633) [id number] 19:49:00 Test Item Value Reference Range Interpretation Comments SODIUM (BEAKER) (test 136 meq/L 136-145 code = 381) POTASSIUM (BEAKER) 5.1 meq/L 3.5-5.1 Specimen slightly (test code = 379) hemolyzed CHLORIDE (BEAKER) 104 meq/L 98-107 (test code = 382) CO2 (BEAKER) (test 25 meq/L 22-29 code = 355) Call if K > 5POCT-GLUCOSE [id number] 11:37:00 Test Item Value Reference Range Interpretation Comments POC-GLUCOSE METER 293 mg/dL 70-110 H TESTED AT [place] [address] ([facility]) (test code = [facility] Dylon [facility] 1538) [address] RAD, CHEST, 1 VIEW, NON [id number] 10:22:00Reason for exam:->SOBShould this be performed at the bedside?->YesFINAL REPORT Chest one view Discussion: There is cardiomegaly and interstitial congestion. A small right-sided effusion is noted. No pneumothorax. IMPRESSIONS: Suspected CHF. Signed: Jeannette Nava Verified Date/Time: 05/13/2017 10:22:34 Reading Location: [facility] Radiology Reading Room POCT-GLUCOSE METER 2017-05-13 08:34:00 Test Item Value Reference Range Interpretation Comments POC-GLUCOSE METER 178 mg/dL 70-110 H TESTED AT [place] [address] ([facility]) (test code = [facility] D[place] [facility] 1538) [address] POCT-GLUCOSE [id number] 06:53:00 Test Item Value Reference Range Interpretation Comments POC-GLUCOSE METER 167 mg/dL 70-110 H TESTED AT [place] [address] (BEAKER) (test code = [place] 1538) [address] [id number] 04:48:00 Test Item Value Reference Range Interpretation Comments BLOOD UREA NITROGEN (BEAKER) (test 36 mg/dL 7-21 H code = 354) [id number] 04:48:00 Test Item Value Reference Range Interpretation Comments SODIUM (BEAKER) (test code = 381) 139 meq/L 136-145 POTASSIUM (BEAKER) (test code = 5.2 meq/L 3.5-5.1 H 379) CHLORIDE (BEAKER) (test code = 382) 109 meq/L 98-107 H CO2 (BEAKER) (test code = 355) 23 meq/L 22-29 [id number] 04:48:00 Test Item Value Reference Range Interpretation Comments CREATININE (BEAKER) 1.73 mg/dL 0.57-1.25 H (test code = 358) EGFR (BEAKER) (test 30 mL/min/1.73 ESTIMA HINA GFR IS code = 1092) sq m NOT ACCURATE CREATININE CLEARANCE IN PREDICTING GLOMERULAR FILTRATION RATE . ESTIMATED GFR I S NOT APPLICABLE FOR DIALYSIS PATIEN TS. CBC (HEMOGRAM ONLY)2017-05-13 04:33:00 Test Item Value Reference Range Interpretation Comments WHITE BLOOD CELL COUNT (BEAKER) 10.2 K/ L 3.5-10.5 (test code = 775) RED BLOOD CELL COUNT (BEAKER) 4.54 M/ L 3.93-5.22 (test code = 761) HEMOGLOBIN (BEAKER) (test code = 11.4 GM/DL 11.2-15.7 410) HEMATOCRIT (BEAKER) (test code = 37.6 % 34.1-44.9 411) MEAN CORPUSCULAR VOLUME (BEAKER) 82.8 fL 79.4-94.8 (test code = 753) MEAN CORPUSCULAR HEMOGLOBIN 25.1 pg 25.6-32.2 L (BEAKER) (test code = 751) MEAN CORPUSCULAR HEMOGLOBIN CONC 30.3 GM/DL 32.2-35.5 L (BEAKER) (test code = 752) RED CELL DISTRIBUTION WIDTH 14.7 % 11.7-14.4 H (BEAKER) (test code = 412) PLATELET COUNT (BEAKER) (test 194 K/CU MM 150-450 code = 756) MEAN PLATELET VOLUME (BEAKER) 10.9 fL 9.4-12.3 (test code = 754) NUCLEATED RED BLOOD CELLS 0 /100 WBC 0-0 (BEAKER) (test code = 413) [id number] 23:29:00 Test Item Value Reference Range Interpretation Comments ACTIVATED CLOTTING TIME 136 sec TEST ED AT [place] [address] ([facility]) (test code = J[place]IANO Osborne [place] [address]) [address] [id number] 20:13:00 Test Item Value Reference Range Interpretation Comments ACTIVATED CLOTTING TIME 175 sec TEST ED AT [place] [address] ([facility]) (test code = [place]borne [place] [address]) [address] [id number] 18:36:00 Test Item Value Reference Range Interpretation Comments ACTIVATED CLOTTING TIME 202 sec TEST ED AT [place] [address] ([facility]) (test code = [place]IANO [place]borne [place] [address]) [address] [id number] 18:03:00 Test Item Value Reference Range Interpretation Comments ACTIVATED CLOTTING TIME 208 sec TEST ED AT [place] [address] ([facility]) (test code = [place]IANO Osborne [place] [address]) [address] BASIC METABOLIC [id number] 11:57:00 Test Item Value Reference Range Interpretation Comments SODIUM (BEAKER) 139 meq/L 136-145 (test code = 381) POTASSIUM (BEAKER) 4.9 meq/L 3.5-5.1 (test code = 379) CHLORIDE (BEAKER) 107 meq/L 98-107 (test code = 382) CO2 (BEAKER) (test 27 meq/L 22-29 code = 355) BLOOD UREA NITROGEN 36 mg/dL 7-21 H (BEAKER) (test code = 354) CREATININE (BEAKER) 1.60 mg/dL 0.57-1.25 H (test code = 358) GLUCOSE RANDOM 187 mg/dL 70-105 H (BEAKER) (test code = 652) CALCIUM (BEAKER) 8.6 mg/dL 8.4-10.2 (test code = 697) EGFR (BEAKER) (test 33 mL/min/1.73 ESTIMA HINA GFR IS code = 1092) sq m NOT ACCURATE CREATININE CLEARANCE IN PREDICTING GLOMERULAR FILTRATION RATE . ESTIMATED GFR I S NOT APPLICABLE FOR DIALYSIS PATIEN TS. PROTHROMBIN [id number] 11:15:00 Test Item Value Reference Range Interpretation Comments PROTIME (BEAKER) (test code = 14.8 seconds 11.7-14.7 H 759) INR (BEAKER) (test code = 370) 1.2 <=5.9 RECOMMENDED COUMADIN/WARFARIN INR THERAPY RANGESSTANDARD DOSE: 2.0 - 3.0 Includes: PROPHYLAXIS forvenous thrombosis, systemic embolization; TREATMENT for venous thrombosis and/or pulmonary embolus.HIGH RISK: Target INR is 2.5-3.5 for patients with mechanical heart valves.Within 24 hours, if on CoumadinCBC W/PLT COUNT & AUTO [id number] 11:01:00 Test Item Value Reference Range Interpretation Comments WHITE BLOOD CELL COUNT (BEAKER) 9.1 K/ L 3.5-10.5 (test code = 775) RED BLOOD CELL COUNT (BEAKER) 4.62 M/ L 3.93-5.22 (test code = 761) HEMOGLOBIN (BEAKER) (test code = 11.7 GM/DL 11.2-15.7 410) HEMATOCRIT (BEAKER) (test code = 38.0 % 34.1-44.9 411) MEAN CORPUSCULAR VOLUME (BEAKER) 82.3 fL 79.4-94.8 (test code = 753) MEAN CORPUSCULAR HEMOGLOBIN 25.3 pg 25.6-32.2 L (BEAKER) (test code = 751) MEAN CORPUSCULAR HEMOGLOBIN CONC 30.8 GM/DL 32.2-35.5 L (BEAKER) (test code = 752) RED CELL DISTRIBUTION WIDTH 14.5 % 11.7-14.4 H (BEAKER) (test code = 412) PLATELET COUNT (BEAKER) (test 205 K/CU MM 150-450 code = 756) MEAN PLATELET VOLUME (BEAKER) 10.6 fL 9.4-12.3 (test code = 754) NUCLEATED RED BLOOD CELLS 0 /100 WBC 0-0 (BEAKER) (test code = 413) NEUTROPHILS RELATIVE PERCENT 59 % (BEAKER) (test code = 429) LYMPHOCYTES RELATIVE PERCENT 32 % (BEAKER) (test code = 430) MONOCYTES RELATIVE PERCENT 5 % (BEAKER) (test code = 431) EOSINOPHILS RELATIVE PERCENT 3 % (BEAKER) (test code = 432) BASOPHILS RELATIVE PERCENT 1 % (BEAKER) (test code = 437) NEUTROPHILS ABSOLUTE COUNT 5.36 K/ L 1.56-6.13 (BEAKER) (test code = 670) LYMPHOCYTES ABSOLUTE COUNT 2.86 K/ L 1.18-3.74 (BEAKER) (test code = 414) MONOCYTES ABSOLUTE COUNT (BEAKER) 0.48 K/ L 0.24-0.36 H (test code = 415) EOSINOPHILS ABSOLUTE COUNT 0.27 K/ L 0.04-0.36 (BEAKER) (test code = 416) BASOPHILS ABSOLUTE COUNT (BEAKER) 0.08 K/ L 0.01-0.08 (test code = 417) IMMATURE GRANULOCYTES-RELATIVE 0 % 0-1 PERCENT (BEAKER) (test code = 2801) POCT-GLUCOSE [id number] 12:35:00 Test Item Value Reference Range Interpretation Comments POC-GLUCOSE METER 249 mg/dL 70-110 H TESTED AT [place] [address] ([facility]) ([facility] 1538) [address] POCT-GLUCOSE [id number] 09:10:00 Test Item Value Reference Range Interpretation Comments POC-GLUCOSE METER 155 mg/dL 70-110 H TESTED AT [place] [address] ([facility]) (test code = [facility] 1538) [address] BASIC METABOLIC [id number] 05:39:00 Test Item Value Reference Range Interpretation Comments SODIUM (BEAKER) 138 meq/L 136-145 (test code = 381) POTASSIUM (BEAKER) 4.7 meq/L 3.5-5.1 (test code = 379) CHLORIDE (BEAKER) 107 meq/L 98-107 (test code = 382) CO2 (BEAKER) (test 25 meq/L 22-29 code = 355) BLOOD UREA NITROGEN 36 mg/dL 7-21 H (BEAKER) (test code = 354) CREATININE (BEAKER) 1.75 mg/dL 0.57-1.25 H (test code = 358) GLUCOSE RANDOM 126 mg/dL 70-105 H (BEAKER) (test code = 652) CALCIUM (BEAKER) 8.2 mg/dL 8.4-10.2 L (test code = 697) EGFR (BEAKER) (test 29 mL/min/1.73 ESTIMA HINA GFR IS code = 1092) sq m NOT ACCURATE CREATININE CLEARANCE IN PREDICTING GLOMERULAR FILTRATION RATE . ESTIMATED GFR I S NOT APPLICABLE FOR DIALYSIS PATIEN TS. [id number] 05:27:00 Test Item Value Reference Range Interpretation Comments PHOSPHORUS (BEAKER) (test code = 5.0 mg/dL 2.3-4.7 H 604) [id number] 05:27:00 Test Item Value Reference Range Interpretation Comments MAGNESIUM (BEAKER) (test code = 1.6 mg/dL 1.6-2.6 627) POCT-GLUCOSE [id number] 05:25:00 Test Item Value Reference Range Interpretation Comments POC-GLUCOSE METER 144 mg/dL 70-110 H TESTED AT [place] [address] ([facility]) (test code = [facility] 1538) [address] PROTHROMBIN [id number] 04:58:00 Test Item Value Reference Range Interpretation Comments PROTIME (Incuvo) (test code = 14.2 seconds 11.7-14.7 759) INR ([facility]) (test code = 370) 1.1 <=5.9 RECOMMENDED COUMADIN/WARFARIN INR THERAPY RANGESSTANDARD DOSE: 2.0 - 3.0 Includes: PROPHYLAXIS forvenous thrombosis, systemic embolization; TREATMENT for venous thrombosis and/or pulmonary embolus.HIGH RISK: Target INR is 2.5-3.5 for patients with mechanical heart valves.POCT-GLUCOSE [id number] 23:55:00 Test Item Value Reference Range Interpretation Comments POC-GLUCOSE METER 86 mg/dL 70-110 TESTED AT [place] [address] ([facility]) (test code = [facility] [address] 1538) B-TYPE NATRIURETIC FACTOR (BNP)2017-04-22 18:13:00 Test Item Value Reference Range Interpretation Comments B-TYPE NATRIURETIC PEPTIDE 1203 pg/mL 0-100 H ([facility]) (test code = 700) POCT-GLUCOSE [id number] 17:36:00 Test Item Value Reference Range Interpretation Comments POC-GLUCOSE METER 259 mg/dL 70-110 H TESTED AT [place] [address] ([facility]) (test code = [facility] 1538) [address] HEMOGLOBIN [id number] 14:24:00 Test Item Value Reference Range Interpretation Comments HEMOGLOBIN A1C (BEAKER) (test code = 10.5 % 4.3-6.1 H 368) POCT-GLUCOSE [id number] 12:34:00 Test Item Value Reference Range Interpretation Comments POC-GLUCOSE METER 207 mg/dL 70-110 H TESTED AT [facility] 6720 (BEAKER) (test code = [place] 1538) [address] [id number] 07:53:00 Test Item Value Reference Range Interpretation Comments PHOSPHORUS (BEAKER) (test code = 3.9 mg/dL 2.3-4.7 604) [id number] 07:53:00 Test Item Value Reference Range Interpretation Comments MAGNESIUM (BEAKER) (test code = 1.6 mg/dL 1.6-2.6 627) BASIC METABOLIC [id number] 07:53:00 Test Item Value Reference Range Interpretation Comments SODIUM (BEAKER) 139 meq/L 136-145 (test code = 381) POTASSIUM (BEAKER) 4.5 meq/L 3.5-5.1 (test code = 379) CHLORIDE (BEAKER) 108 meq/L 98-107 H (test code = 382) CO2 (BEAKER) (test 25 meq/L 22-29 code = 355) BLOOD UREA NITROGEN 29 mg/dL 7-21 H (BEAKER) (test code = 354) CREATININE (BEAKER) 1.54 mg/dL 0.57-1.25 H (test code = 358) GLUCOSE RANDOM 211 mg/dL 70-105 H (BEAKER) (test code = 652) CALCIUM (BEAKER) 8.5 mg/dL 8.4-10.2 (test code = 697) EGFR (BEAKER) (test 34 mL/min/1.73 ESTIMA HINA GFR IS code = 1092) sq m NOT ACCURATE CREATININE CLEARANCE IN PREDICTING GLOMERULAR FILTRATION RATE . ESTIMATED GFR I S NOT APPLICABLE FOR DIALYSIS PATIEN TS. TROPONIN [id number] 07:29:00 Test Item Value Reference Range Interpretation Comments TROPONIN I (BEAKER) (test code = 0.05 ng/mL 0.00-0.03 H 397) Troponin I (TnI) levels must be interpreted [...] acidosis, acute neurological disease, and persistent tachyarrhythmia.PROTHROMBIN [id number] 07:01:00 Test Item Value Reference Range Interpretation Comments PROTIME (ROBERT) (test code = 13.8 seconds 11.7-14.7 759) INR ([facility]) (test code = 370) 1.1 <=5.9 RECOMMENDED COUMADIN/WARFARIN INR THERAPY RANGESSTANDARD DOSE: 2.0 - 3.0 Includes: PROPHYLAXIS forvenous thrombosis, systemic embolization; TREATMENT for venous thrombosis and/or pulmonary embolus.HIGH RISK: Target INR is 2.5-3.5 for patients with mechanical heart valves.POCT-GLUCOSE [id number] 06:28:00 Test Item Value Reference Range Interpretation Comments POC-GLUCOSE METER 198 mg/dL 70-110 H TESTED AT [facility] [address] ([facility] [place]) (test code = [place]IAN[place]ylon [place] 1538) [address] CREATINE KINASE (CK), TOTAL AND [id number] 00:49:00 Test Item Value Reference Range Interpretation Comments CREATINE KINASE TOTAL ([facility] [place]) 69 U/L 29-200 (test code = 380) CREATINE KINASE-MB ([facility] (test 4.3 ng/mL 0.0-6.6 code = 750) CREATINE KINASE-MB INDEX ([facility]) 6.2 % (test code = 395) CK-MB Reference Range:<6.7 Normal6.7-10.0 Borderline>10.0 AbnormalTROPONIN [id number] 00:49:00 Test Item Value Reference Range Interpretation Comments TROPONIN I ([facility] (test code = 0.05 ng/mL 0.00-0.03 H 397) Troponin I (TnI) levels must be interpreted [...] acidosis, acute neurological disease, and persistent tachyarrhythmia.POCT-GLUCOSE [id number] 20:44:00 Test Item Value Reference Range Interpretation Comments POC-GLUCOSE METER 269 mg/dL 70-110 H TESTED AT [facility] [address] ([facility]) (test code = [place] 1538) [id number]
[2019-09-27] MEDS ORDERED: HYDROMORPHONE HCL 0.5 MG/0.5 ML INJ ONE (15:59)
[2019-09-27] MEDS ORDERED: IPRATROPIUM BROM 0.5MG/2.5ML ONE (15:59)
[2019-09-27] MEDS ORDERED: ALBUTEROL 2.5 MG/3 ML NEB SOL ONE (15:59)
[2019-09-27] MEDS ORDERED: ONDANSETRON 4 MG/2 ML VIAL ONE (15:59)
[2019-09-27] MEDS ORDERED: TETANUS & DIPHTHERIA TOX,ADULT 0.5 ML VIAL ONE (16:00)
[2019-09-27] MEDS ORDERED: NA CHLORIDE 0.9% 1,000 ML ONE (16:00)
[2019-09-27] MEDS ORDERED: Levofloxacin500mg IV 500 MG/100 ML BAG IV ONE (16:00)
--- NOTE | 2019-09-27 16:12 | RAD REPORT ---
EXAM DESCRIPTION: RAD - Foot Left 2 View - 09/27/2019 4:04 pm CLINICAL HISTORY: PAIN COMPARISON: Left foot December 2013 FINDINGS: First phalanx has been resected since the prior study. There postsurgical and remodeling c hanges to the head of the first metatarsal. No acute or destructive process suspected at this site. P rogressive degenerative changes are present at the second MTP joint as well as progressive degenerati ve change in the second-fifth IP joints. Bones are present along the lateral aspect of the foot. No bone destruction is seen. Soft tissue swel ling is present. Arterial tree calcifications present. IMPRESSION: Multiple lateral foot wounds are seen. Adjacent bone structure show no destruction. Degenerative changes are present in the foot progressive from prior imaging.
--- NOTE | 2019-09-27 16:14 | RAD REPORT ---
EXAM DESCRIPTION: RAD - Chest Single View - 09/27/2019 4:04 pm CLINICAL HISTORY: COUGH COMPARISON: Portable July 06, 2019 TECHNIQUE: AP portable chest image was obtained 09/27/2019 4:04 pm . FINDINGS: No peripheral mass or consolidation of the left lung field. Interstitial pattern is promin ent but stable. Interstitial opacification is mildly prominent in the upper right lung field without substantial change. Pleural effusion is present with atelectasis and/ or infiltrate in the right base . Cardiomegaly is present. Vasculature within normal limits. No pneumothorax. No acute bony abnormali ty seen. No acute aortic findings suspected. IMPRESSION: Right pleural effusion with right lung base infiltrate and/ or atelectasis similar to co mparison. Cardiomegaly without significant failure or volume overload.
--- NOTE | 2019-09-27 16:30 | EDPHYS ---
Physician Documentation [facility] Name: Christy Priest Age: 64 yrs Sex: Female : 1955 Arrival Date: 09/27/2019 Time: 13:45 Bed 14 Private MD: Alessio Vásquez HPI: 09/26 15:04 This 64 yrs old Female presents to ER via Wheelchair with complaints of carlos Infected foot. 15:04 The patient presents with decreased range of motion, an injury, pain. The complaints carlos affect the lateral aspect of left calf, left lateral ankle, lateral aspect of left foot, left calf, left Achilles, left heel, medial aspect of left calf, left medial ankle, medial aspect of left foot, left spangler, anterior aspect of left ankle and dorsum of left foot. Context: The problem was sustained at an unknown site. Onset: The symptoms/episode began/occurred 1 month(s) ago. Modifying factors: The symptoms are alleviated by nothing. the symptoms are aggravated by nothing. Associated signs and symptoms: The patient has no apparent associated signs or symptoms. The patient presents with decreased range of motion, pain, swelling, tenderness. The complaints affect the left foot, lateral side of left foot, arch of left foot and dorsum of left foot. 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 Modifying factors: The symptoms are alleviated by nothing, the symptoms are aggravated by nothing. Historical: - Allergies: 14:08 Augmentin; sv 14:08 basil; sv 14:08 Morphine; sv 14:08 Nitroglycerin; sv 14:08 Tramadol HCl; sv 14:08 Trazodone; sv 14:08 Vancomycin; sv 14:08 Clindamycin; sv - PMHx: 14:08 CHF; COPD; Diabetes - IDDM; ESRD; High Cholesterol; Hypertension; triple bypass; sv uterine cancer; - PSHx: 14:08 Cholecystectomy; Hysterectomy; leg surgery; BLE stents; sv - Immunization history:: Adult Immunizations. - Social history:: Smoking status: Patient reports the use of cigarette tobacco products. - Family history:: not pertinent. ROS: 15:04 Constitutional: Negative for fever, chills, and weight loss, Eyes: Negative for injury, carlos pain, redness, and discharge, ENT: Negative for injury, pain, and discharge, Neck: Negative for injury, pain, and swelling, Abdomen/GI: Negative for abdominal pain, nausea, vomiting, diarrhea, and constipation, Back: Negative for injury and pain, : Negative for injury, bleeding, discharge, and swelling, Neuro: Negative for headache, weakness, numbness, tingling, and seizure, Psych: Negative for depression, anxiety, suicide ideation, homicidal ideation, and hallucinations, Allergy/Immunology: Negative for hives, rash, and allergies, Endocrine: Negative for neck swelling, polydipsia, polyuria, polyphagia, and marked weight changes, Hematologic/Lymphatic: Negative for swollen nodes, abnormal bleeding, and unusual bruising. 15:04 Cardiovascular: Positive for palpitations. 15:04 Respiratory: Positive for cough, shortness of breath, at rest. wheezing, expiratory. 15:04 MS/extremity: Positive for decreased range of motion, erythema, pain, swelling, tenderness, of the left leg. Exam: 15:04 Constitutional: This is a well developed, well nourished patient who is awake, alert, carlos and in no acute distress. Head/Face: Normocephalic, atraumatic. Eyes: Pupils equal round and reactive to light, extra-ocular motions intact. Lids and lashes normal. Conjunctiva and sclera are non-icteric and not injected. Cornea within normal limits. Periorbital areas with no swelling, redness, or edema. ENT: Nares patent. No nasal discharge, no septal abnormalities noted. Tympanic membranes are normal and external auditory canals are clear. Oropharynx with no redness, swelling, or masses, exudates, or evidence of obstruction, uvula midline. Mucous membranes moist. Neck: Trachea midline, no thyromegaly or masses palpated, and no cervical lymphadenopathy. Supple, full range of motion without nuchal rigidity, or vertebral point tenderness. No Meningismus. Chest/axilla: Normal chest wall appearance and motion. Nontender with no deformity. No lesions are appreciated. Cardiovascular: Regular rate and rhythm with a normal S1 and S2. No gallops, murmurs, or rubs. Normal PMI, no JVD. No pulse deficits. Abdomen/GI: Soft, non-tender, with normal bowel sounds. No distension or tympany. No guarding or rebound. No evidence of tenderness throughout. Back: No spinal tenderness. No costovertebral tenderness. Full range of motion. Skin: Warm, dry with normal turgor. Normal color with no rashes, no lesions, and no evidence of cellulitis. Neuro: Awake and alert, GCS 15, oriented to person, place, time, and situation. Cranial nerves II-XII grossly intact. Motor strength 5/5 in all extremities. Sensory grossly intact. Cerebellar exam normal. Normal gait. Psych: Awake, alert, with orientation to person, place and time. Behavior, mood, and affect are within normal limits. 15:04 Respiratory: mild respiratory distress is noted, Respirations: labored breathing, that is mild, Breath sounds: bronchial sounds, decreased breath sounds, rhonchi, wheezing: inspiratory expiratory Respiratory rate: 22 15:04 Musculoskeletal/extremity: Circulation is intact in all extremities. Sensation intact. Compartment Syndrome exam of affected extremity: is normal. Weight bearing: is unable to bear weight, DVT Exam: negative Homans' sign noted on exam, no appreciated bluish discoloration, pain, swelling, tenderness, erythema, increased warmth, that is mild. 15:42 ECG was reviewed by the Attending Physician. [facility] Vital Signs: 14:05 BP 168 / 88; Pulse 65; Resp 22; Temp 98.6; Pulse Ox 98% ; Weight 85.73 kg; Height 5 ft. sv 7 in. (170.18 cm); 15:00 BP 159 / 90; Pulse 68; Resp 20; Pulse Ox 95% on R/A; vc 16:00 BP 165 / 84; Pulse 65; Resp 22; Pulse Ox 90% on R/A; vc 17:00 BP 171 / 86; Pulse 66; Resp 20; Pulse Ox 94% on R/A; vc 18:00 BP 164 / 82; Pulse 64; Resp 20; Pulse Ox 90% on R/A; vc 19:00 BP 160 / 83; Pulse 66; Resp 18; Pulse Ox 92% on R/A; vc 19:15 BP 152 / 76; Pulse 66; Resp 20; Temp 98.2; Pulse Ox 94% on R/A; vc 14:05 Body Mass Index 29.60 (85.73 kg, 170.18 cm) MDM: 13:57 Patient medically screened. [facility] 15:10 Data reviewed: vital signs, nurses notes, lab test result(s), EKG, radiologic studies, [facility] plain films. 15:12 Differential diagnosis: sprain, penetrating trauma, arthritis, cellulitis. Data [facility] interpreted: campus monitor: rate is 65 beats/min, rhythm is normal sinus rhythm. Test interpretation: by ED physician or midlevel provider: ECG, plain radiologic studies. Counseling: I had a detailed discussion with the patient and/or guardian regarding: the historical points, exam findings, and any diagnostic results supporting the discharge/admit diagnosis, lab results, radiology results, the need for further work-up and treatment in the hospital. 09/26 14:45 Order name: ESR; Complete Time: 17:48 09/26 14:45 Order name: Lactate; Complete Time: 16:59 09/26 14:45 Order name: Procalcitonin; Complete Time: 17:48 09/26 14:45 Order name: Blood Culture Adult (2) 09/26 14:45 Order name: Basic Metabolic Panel; Complete Time: 17: 09/26 14:45 Order name: CBC with Diff; Complete Time: 17:48 09/26 14:45 Order name: LFT's; Complete Time: 17: 09/26 14:45 Order name: Magnesium; Complete Time: 17: 09/26 14:45 Order name: NT PRO-BNP; Complete Time: 17: 09/26 14:45 Order name: Troponin (emerg Dept Use Only); Complete Time: 17: 09/26 14:45 Order name: XRAY Chest (1 view); Complete Time: 16:26 09/26 14:45 Order name: XRAY Foot LEFT 2 View; Complete Time: 16: 09/26 16:52 Order name: Type And Screen [facility] 09/26 14:45 Order name: EKG; Complete Time: 14:46 09/26 14:45 Order name: Cardiac monitoring; Complete Time: 02:51 09/26 14:45 Order name: EKG - Nurse/Tech; Complete Time: 16:51 09/26 14:45 Order name: IV Saline Lock; Complete Time: 16:51 09/26 14:45 Order name: Labs collected and sent; Complete Time: 16:51 09/26 14:45 Order name: O2 Per Protocol; Complete Time: 16:51 vc 09/26 14:45 Order name: O2 Sat Monitoring; Complete Time: 16:52 vc 09/26 14:46 Order name: Dressing - Wound: Wet to dry; Complete Time: 16:51 vc 09/26 14:47 Order name: Urine Dipstick-Ancillary (obtain specimen); Complete Time: 20:29 carlos EC:42 Rate is 68 beats/min. Rhythm is regular. QRS [place] is Normal. OR interval is normal. QRS carlos interval is normal. QT interval is normal. No Q waves. T waves are Normal. No ST changes noted. Clinical impression: NSR w/ Non-specific ST/T Changes and No evidence of ischemia. Interpreted by me. Reviewed by me. Administered Medications: 14:48 CANCELLED (Duplicate Order): vancoMYCIN 1 grams IVPB once over 2 hrs carlos 14:48 CANCELLED (Duplicate Order): Zosyn 3.375 grams IVPB once over 60 mins; (mix in NS 100 carlos mL) 16:15 Drug: Dilaudid 0.5 mg Route: IVP; Site: right antecubital; vc 20:00 Follow up: Response: No adverse reaction vc 16:15 Drug: Zofran (Ondansetron) 4 mg Route: IVP; Site: right antecubital; vc 20:00 Follow up: Response: No adverse reaction vc 16:35 Drug: NS 0.9% 1000 ml Route: IV; Rate: 125 ml/hr; Site: right antecubital; vc 16:35 Drug: levofloxacin 500 mg Volume: 100 ml; Route: IVPB; Infused Over: 60 mins; Site: vc right antecubital; 16:45 Drug: Tetanus-Diphtheria Toxoid Adult 0.5 ml {[employer]: [employer]. Exp: vc 05/14/2021. Lot #: [id number]. } Route: IM; Site: left deltoid; 20:00 Follow up: Response: No adverse reaction vc 16:45 Drug: Albuterol 2.5 mg Route: Inhalation; vc 16:45 Drug: AtroVENT Aerosol 0.5 mg Route: Inhalation; vc 19:00 Drug: ProTONIX 40 mg Route: IVP; Site: right antecubital; vc 20:00 Follow up: Response: No adverse reaction vc Disposition: 06/29/20 16:29 Hospitalization ordered by Nimesh Barreto for Inpatient Admission. Preliminary diagnosis are Cellulitis and acute lymphangitis of other parts of limb, Pressure ulcer - left later foot, Type 1 diabetes mellitus, Tobacco use, Other peripheral vascular diseases, Anemia, unspecified, Pleural effusion in conditions classified elsewhere, Cardiomegaly, Unspecified kidney failure - chronic. - Bed requested for Telemetry/MedSurg (Inpatient). - Status is Inpatient Admission. jp3 - Condition is Fair. - Problem is new. - Symptoms have improved. Signatures: Dispatcher [employer] EDEdith Wheat, RN RN Alessio Duarte MD MD cha Pena, Laura, RN RN lp1 Mk Alonso, KIA-C GREENHOUSE SPECIALIST-Cla1 Estevan Aguilar jp3 Dipti De La Rosa RN RN vc Corrections: (The following items were deleted from the chart) 14:48 14:45 vancoMYCIN 1 grams IVPB once over 2 hrs ordered. vc carlos 14:48 14:45 Zosyn 3.375 grams IVPB once over 60 mins; (mix in NS 100 mL) ordered. vc carlos 16:55 16:29 Hospitalization Ordered by Nimesh Barreto DO for Inpatient Admission. Preliminary carlos diagnosis is Cellulitis and acute lymphangitis of other parts of limb; Pressure ulcer - left later foot; Type 1 diabetes mellitus; Tobacco use; Other peripheral vascular diseases. Bed requested for Telemetry/MedSurg (Inpatient). Status is Inpatient Admission. Condition is Fair. Problem is new. Symptoms have improved. carlos 17:03 16:55 09/27/2019 16:29 Hospitalization Ordered by Nimesh Barreto DO for Inpatient carlos Admission. Preliminary diagnosis is Cellulitis and acute lymphangitis of other parts of limb; Pressure ulcer - left later foot; Type 1 diabetes mellitus; Tobacco use; Other peripheral vascular diseases; Anemia, unspecified; Pleural effusion in conditions classified elsewhere; Cardiomegaly. Bed requested for Telemetry/MedSurg (Inpatient). Status is Inpatient Admission. Condition is Fair. Problem is new. Symptoms have improved. carlos 19:12 17:03 09/27/2019 16:29 Hospitalization Ordered by Nimesh Barreto DO for Inpatient lp1 Admission. Preliminary diagnosis is Cellulitis and acute lymphangitis of other parts of limb; Pressure ulcer - left later foot; Type 1 diabetes mellitus; Tobacco use; Other peripheral vascular diseases; Anemia, unspecified; Pleural effusion in conditions classified elsewhere; Cardiomegaly; Unspecified kidney failure - chronic. Bed requested for Telemetry/MedSurg (Inpatient). Status is Inpatient Admission. Condition is Fair. Problem is new. Symptoms have improved. carlos 20:01 19:12 09/27/2019 16:29 Hospitalization Ordered by Nimesh Barreto DO for Inpatient lp1 Admission. Preliminary diagnosis is Cellulitis and acute lymphangitis of other parts of limb; Pressure ulcer - left later foot; Type 1 diabetes mellitus; Tobacco use; Other peripheral vascular diseases; Anemia, unspecified; Pleural effusion in conditions classified elsewhere; Cardiomegaly; Unspecified kidney failure - chronic. Bed requested for Telemetry/MedSurg (Inpatient). Status is Inpatient Admission. Condition is Fair. Problem is new. Symptoms have improved. lp1 20:29 20:01 09/27/2019 16:29 Hospitalization Ordered by Nimesh Barreto DO for Inpatient jp3 Admission. Preliminary diagnosis is Cellulitis and acute lymphangitis of other parts of limb; Pressure ulcer - left later foot; Type 1 diabetes mellitus; Tobacco use; Other peripheral vascular diseases; Anemia, unspecified; Pleural effusion in conditions classified elsewhere; Cardiomegaly; Unspecified kidney failure - chronic. Bed requested for Telemetry/MedSurg (Inpatient). Status is Inpatient Admission. Condition is Fair. Problem is new. Symptoms have improved. lp1
--- NOTE | 2019-09-27 16:30 | ER ---
Nurse's Notes [facility] Name: Christy Priest Age: 64 yrs Sex: Female : 1955 Arrival Date: 09/27/2019 Time: 13:45 Bed 14 Private MD: Diagnosis: Cellulitis and acute lymphangitis of other parts of limb;Pressure ulcer-left later foot;Type 1 diabetes mellitus;Tobacco use;Other peripheral vascular diseases;Anemia, unspecified;Pleural effusion in conditions classified elsewhere;Cardiomegaly;Unspecified kidney failure-chronic Presentation: 09/26 14:05 Chief complaint: Patient states: left foot infection that has been going on for a month sv and noticed yesterday that she had maggots in her foot. Coronavirus screen: Surgical mask placed on patient. Patient moved to private room, placed in contact and droplet isolation with eye protection until further assessment. Patient reports a cough. Patient reports shortness of breath or difficulty breathing. Patient denies measured and/or subjective temperature greater than 100.4F prior to today's visit. Patient denies travel on a cruise ship or to a country the [facility] currently lists as an affected area. Patient denies contact with known and/or suspected case of COVID-19. Ebola Screen: No symptoms or risks identified at this time. Initial Sepsis Screen: Does the patient meet any 2 criteria? RR > 20 per min. No. Patient's initial sepsis screen is negative. Does the patient have a suspected source of infection? Yes: Skin breakdown/wound. Risk Assessment: Do you want to hurt yourself or someone else? Patient reports no desire to harm self or others. Onset of symptoms was July 2019. 14:05 Method Of Arrival: Wheelchair sv 14:05 Acuity: DENNY 2 sv Triage Assessment: 14:08 General: Appears in no apparent distress. uncomfortable, Behavior is calm, cooperative, sv appropriate for age. Neuro: Level of Consciousness is awake, alert, obeys commands. Respiratory: Respiratory effort is even, unlabored. Derm: Pt has a towel and plastic bag wrapped around her left foot. Historical: - Allergies: 14:08 Augmentin; sv 14:08 basil; sv 14:08 Morphine; sv 14:08 Nitroglycerin; sv 14:08 Tramadol HCl; sv 14:08 Trazodone; sv 14:08 Vancomycin; sv 14:08 Clindamycin; sv - PMHx: 14:08 CHF; COPD; Diabetes - IDDM; ESRD; High Cholesterol; Hypertension; triple bypass; sv uterine cancer; - PSHx: 14:08 Cholecystectomy; Hysterectomy; leg surgery; BLE stents; sv - Immunization history:: Adult Immunizations. - Social history:: Smoking status: Patient reports the use of cigarette tobacco products. - Family history:: not pertinent. Screenin:10 Abuse screen: Denies threats or abuse. Nutritional screening: No deficits noted. vc Tuberculosis screening: No symptoms or risk factors identified. Fall Risk Fall in past 12 months (25 points). Secondary diagnosis (15 points) IV access (20 points). Ambulatory Aid- None/Bed Rest/Nurse Assist (0 pts). Gait- Weak (10 pts.). Mental Status- Oriented to own ability (0 pts). Total Merlos Fall Scale indicates High Risk Score (45 or more points). Assessment: 14:10 General: Appears in no apparent distress. uncomfortable, Behavior is calm, cooperative, vc appropriate for age. Pain: Complains of pain in left foot and lateral side of left foot Pain does not radiate. Pain currently is 10 out of 10 on a pain scale. Quality of pain is described as sharp. Neuro: Level of Consciousness is awake, alert, obeys commands, Oriented to person, place, time, situation. Cardiovascular: Capillary refill < 3 seconds Patient's skin is warm and dry. Respiratory: Airway is patent Respiratory effort is even, unlabored, Respiratory pattern is regular, symmetrical. GI: No signs and/or symptoms were reported involving the gastrointestinal system. : No signs and/or symptoms were reported regarding the genitourinary system. Derm: Wound noted dorsal aspect of middle phalanx of left index finger. Musculoskeletal: Range of motion: limited in all extremities. 15:10 Reassessment: Patient appears in no apparent distress at this time. Patient and/or vc family updated on plan of care and expected duration. Pain level reassessed. Patient is alert, oriented x 3, equal unlabored respirations, skin warm/dry/pink. 16:10 Reassessment: Patient appears in no apparent distress at this time. Patient and/or vc family updated on plan of care and expected duration. Pain level reassessed. Patient is alert, oriented x 3, equal unlabored respirations, skin warm/dry/pink. 17:10 Reassessment: Patient appears in no apparent distress at this time. Patient and/or vc family updated on plan of care and expected duration. Pain level reassessed. Patient is alert, oriented x 3, equal unlabored respirations, skin warm/dry/pink. 18:10 Reassessment: Patient appears in no apparent distress at this time. Patient and/or vc family updated on plan of care and expected duration. Pain level reassessed. Patient is alert, oriented x 3, equal unlabored respirations, skin warm/dry/pink. 19:10 Reassessment: Patient appears in no apparent distress at this time. Patient and/or vc family updated on plan of care and expected duration. Pain level reassessed. Patient is alert, oriented x 3, equal unlabored respirations, skin warm/dry/pink. 20:10 Reassessment: Patient appears in no apparent distress at this time. Patient and/or vc family updated on plan of care and expected duration. Pain level reassessed. Patient is alert, oriented x 3, equal unlabored respirations, skin warm/dry/pink. Patient states symptoms have improved. Vital Signs: 14:05 BP 168 / 88; Pulse 65; Resp 22; Temp 98.6; Pulse Ox 98% ; Weight 85.73 kg; Height 5 ft. sv 7 in. (170.18 cm); 15:00 BP 159 / 90; Pulse 68; Resp 20; Pulse Ox 95% on R/A; vc 16:00 BP 165 / 84; Pulse 65; Resp 22; Pulse Ox 90% on R/A; vc 17:00 BP 171 / 86; Pulse 66; Resp 20; Pulse Ox 94% on R/A; vc 18:00 BP 164 / 82; Pulse 64; Resp 20; Pulse Ox 90% on R/A; vc 19:00 BP 160 / 83; Pulse 66; Resp 18; Pulse Ox 92% on R/A; vc 19:15 BP 152 / 76; Pulse 66; Resp 20; Temp 98.2; Pulse Ox 94% on R/A; vc 14:05 Body Mass Index 29.60 (85.73 kg, 170.18 cm) sv ED Course: 13:45 Patient arrived in ED. mr 13:57 Alessio Parry MD is Attending Physician. carlos 14:06 Triage completed. sv 14:08 Arm band placed on. sv 14:10 Patient has correct armband on for positive identification. Bed in low position. Call vc light in reach. Side rails up X2. panel monitor on. Pulse ox on. NIBP on. 14:38 Dipti De La Rosa RN is Primary Nurse. vc 15:30 EKG done, by central supply technician. reviewed by Alessio Parry MD. at1 16:05 XRAY Chest (1 view) In Process Unspecified. EDMS 16:05 XRAY Foot LEFT 2 View In Process Unspecified. EDMS 16:27 Nimesh Barreto DO is Hospitalizing Provider. carlos 20:15 No provider procedures requiring assistance completed. Patient admitted, IV remains in vc place. Administered Medications: 14:48 CANCELLED (Duplicate Order): vancoMYCIN 1 grams IVPB once over 2 hrs carlos 14:48 CANCELLED (Duplicate Order): Zosyn 3.375 grams IVPB once over 60 mins; (mix in NS 100 carlos mL) 16:15 Drug: Dilaudid 0.5 mg Route: IVP; Site: right antecubital; vc 20:00 Follow up: Response: No adverse reaction vc 16:15 Drug: Zofran (Ondansetron) 4 mg Route: IVP; Site: right antecubital; vc 20:00 Follow up: Response: No adverse reaction vc 16:35 Drug: NS 0.9% 1000 ml Route: IV; Rate: 125 ml/hr; Site: right antecubital; vc 16:35 Drug: levofloxacin 500 mg Volume: 100 ml; Route: IVPB; Infused Over: 60 mins; Site: vc right antecubital; 16:45 Drug: Tetanus-Diphtheria Toxoid Adult 0.5 ml {Casing Man: [employer]. Exp: vc 05/14/2021. Lot #: [id number]. } Route: IM; Site: left deltoid; 20:00 Follow up: Response: No adverse reaction vc 16:45 Drug: Albuterol 2.5 mg Route: Inhalation; vc 16:45 Drug: AtroVENT Aerosol 0.5 mg Route: Inhalation; vc 19:00 Drug: ProTONIX 40 mg Route: IVP; Site: right antecubital; vc 20:00 Follow up: Response: No adverse reaction vc Outcome: 16:29 Decision to Hospitalize by Provider. carlos 20:25 Admitted to Med/surg accompanied by tech, via stretcher. 20:25 Condition: good 20:25 Instructed on the need for admit, Demonstrated understanding of instructions. 20:29 Patient left the ED. jp3 Signatures: Dispatcher [employer] Edith Diaz, RN RN Alessio Duarte MD MD cha Rivera, Anahi mr MckeonMaria A, traffic maintenance officer EKG Tat1 Estevan Aguilar jp3 Dipti De La Rosa RN RN vc
[2019-09-27 16:45] LABS: Basophils % 0.7 % (0-1.3); Hematocrit 26.2 % (36.0-45.0); Lymphocytes % 26.5 % (15.3-44.8); MPV 7.9 fL (7.6-11.3); RBC Red Blood Cell Count 3.03 M/uL (3.86-4.86)
[2019-09-27 16:59] LABS: Albumin 2.3 g/dL (3.4-5.0); Bilirubin Direct 0.2 mg/dL (0-0.2); Bilirubin Total 0.4 mg/dL (0.2-1.0); Magnesium 1.9 mg/dL (1.8-2.4); Potassium 3.8 mmol/L (3.5-5.1); Protein, Total 6.7 g/dL (6.4-8.2); Troponin (Emerg Dept Use Only) 0.02 ng/mL (0.0-0.045)
--- NOTE | 2019-09-27 18:10 | P.HP ---
Certification for Inpatient Patient admitted to: Observation With expected LOS: <2 Midnights Patient will require the following post-hospital care: Home Health Services Practitioner: I am a practitioner with admitting privileges, knowledge of patient current condition, hospital course, and medical plan of care. Services: Services provided to patient in accordance with Admission requirements found in Title 42 Section 412.3 of the Code of Federal Regulations <Mk Alonso - Last Filed: 09/27/19 17:58> Patient admitted to: Observation <Mary LouNimesh - Last Filed: 09/27/19 18:20> Patient History Date of Service: 09/27/19 Primary Care Provider: [facility] Reason for admission: Diabetic foot wound History of Present Illness: 64-year-old female with history of chronic kidney disease, CHF, COPD, diabetes mellitus type 2 presents emergency department for left foot wound. Patient has not been able to receive in-home care for last 1 month due to samuels virus and expiration of her prescriptions for home health and wound healing. Today caregiver was finally able to come out and found that patient had maggots in her foot wound. Patient caregiver cleaned wound at home and brought her to the emergency department. Patient was evaluated in the emergency department found to have to moderately sized diabetic foot wounds to the left lateral aspect of her left foot. Based on examination ED physician wish to admit provider for further evaluation and management of this condition. I saw the patient in the emergency department she appeared stable, vital signs within normal limits. Patient does not appear septic at this time. Patient will be admitted for further evaluation and management of this condition. Home medications list reviewed: Yes - Past Medical/Surgical History Diabetic: Yes -: COPD -: Hypertension -: CAD, CABG x4 vessels (August 2017) -: Diabetes mellitus type 2, insulin-dependent -: Chronic diastolic CHF -: Uterine cancer status post hysterectomy -: Chronic renal disease, stage IV -: 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 Her son lives with her. She has 3 children. - Family History Father -: Heart disease, Hypertension, Stroke, Cancer Mother -: GI disease Sister -: Lung disease, Diabetes Brother -: Heart disease, Hypertension, Diabetes Notes: - Social History Smoking Status: Never smoker Alcohol use: No CD- Drugs: No Caffeine use: Yes <Mk Alonso - Last Filed: 09/27/19 17:58> Date of Service: 09/27/19 - Social History Place of Residence: Home <Nimesh Barreto - Last Filed: 09/27/19 18:20> Allergies morphine Allergy (Severe, Verified 07/07/19 00:33) Anaphylaxis vancomycin Allergy (Intermediate, Verified 06/18/19 03:59) Nausea/Vomiting basil Allergy (Verified 06/18/19 03:59) Nausea/Vomiting tramadol Allergy (Verified 07/07/19 04:12) Nausea/Vomiting trazodone Allergy (Verified 06/18/19 03:59) Nausea/Vomiting nitroglycerin Adverse Reaction (Mild, Verified 06/18/19 04:00) Nausea/Vomiting Home Medications: Allopurinol 100 mg PO BID #60 tablet 06/18/19 Aspirin 81 mg PO DAILY #90 tab.chew 06/18/19 Atorvastatin Calcium [Lipitor] 40 mg PO DAILY #30 tablet 06/18/19 Carvedilol [Coreg] 12.5 mg PO BID #60 tablet 06/18/19 Clopidogrel Bisulfate [Plavix*] 75 mg PO DAILY #60 tablet 06/18/19 Gabapentin 1 tab PO TID #90 capsule 06/18/19 Insulin Detemir [Levemir Flextouch] 10 units SQ DAILY #1 insuln.pen 06/18/19 Albuterol Sulfate [Albuterol Sulfate 0.083% Neb Soln] 1 vial IH Q4H PRN 07/07/19 Albuterol Sulfate [Proair Hfa] 2 puff IH Q4H PRN 07/07/19 Fluticasone [Flovent Hfa 110*] 2 puff IH DAILY 07/07/19 Isosorbide Mononitrate [Isosorbide Mononitrate ER] 1 tab PO DAILY 07/07/19 Sertraline [Zoloft*] 25 mg PO DAILY 07/07/19 buPROPion HCL [Bupropion HCl] 1 tab PO DAILY 07/07/19 Amlodipine [Norvasc*] 10 mg PO DAILY #30 tab 07/10/19 Calcitrol [Rocaltrol*] 0.25 mcg PO Q48H #15 cap 07/10/19 Cefpodoxime Proxetil 100 mg PO BID #8 tablet 07/10/19 Codeine/APAP [Tylenol #3*] 1 tab PO Q6HR PRN #30 tab 07/10/19 Furosemide [Lasix] 80 mg PO BID #60 tablet 07/10/19 Hydralazine HCl [Apresoline] 100 mg PO TID 30 Days #90 tablet 07/10/19 Review of Systems General: Unremarkable Eyes: Unremarkable ENT: Unremarkable Respiratory: Shortness of Breath Cardiovascular: Unremarkable Gastrointestinal: Unremarkable Genitourinary: Unremarkable Musculoskeletal: Unremarkable Integumentary: As per HPI Neurological: Unremarkable <Mk Alonso - Last Filed: 09/27/19 17:58> Physical Examination - Physical Exam General: Alert, In no apparent distress, Oriented x3 HEENT: Atraumatic, Normocephalic Neck: Supple Respiratory: Clear to auscultation bilaterally, Normal air movement Cardiovascular: No edema, Normal pulses, Regular rate/rhythm, Normal S1 S2 Capillary refill: <2 Seconds Gastrointestinal: Normal bowel sounds, Soft and benign Musculoskeletal: No clubbing, No swelling, No contractures, No erythema Integumentary: Diabetic ulcer (2 moderately sized diabetic foot wounds to the left lateral foot) Neurological: Normal speech, Normal strength at 5/5 x4 extr, Normal tone, Normal affect - Studies Laboratory Data (last 24 hrs) 09/27/19 15:45: Sodium 141, Potassium 3.8, BUN 38 H, Creatinine 1.66 H, Glucose 83, Magnesium 1.9, Total Bilirubin 0.4, AST 17, ALT 14, Alkaline Phosphatase 170 H 09/27/19 15:45: WBC 7.4, Hgb 7.8 L*, Hct 26.2 L, Plt Count 253 <Mk Alonso - Last Filed: 09/27/19 17:58> - Studies Laboratory Data (last 24 hrs) 09/27/19 15:45: Sodium 141, Potassium 3.8, BUN 38 H, Creatinine 1.66 H, Glucose 83, Magnesium 1.9, Total Bilirubin 0.4, AST 17, ALT 14, Alkaline Phosphatase 170 H 06/29/20 15:45: WBC 7.4, Hgb 7.8 L*, Hct 26.2 L, Plt Count 253 <Nimesh Barreto - Last Filed: 09/27/19 18:20> Assessment and Plan - Plan Assessment Multiple Diabetic foot wounds left lateral foot COPD Hypertension Coronary artery disease Diabetes mellitus type 2, insulin-dependent Chronic diastolic congestive heart failure Chronic kidney disease stage III Hyperlipidemia Iron-deficiency anemia Plan Multiple Diabetic foot wounds left lateral foot: General surgery has been consulted to determine if patient would benefit from debridement. At this time will continue with Levaquin 500 mg IV once daily. Wound healing has been consulted as well to help manage patient wounds. automotive services manager to help patient obtain services with home health and medical supplies. DVT prophylaxis with heparin 5000 units subcutaneous twice daily. COPD: Will provide patient with albuterol inhaler. Will obtain and continue patient's home medications. Hypertension: Will obtain and continue patient's home medications. Coronary artery disease: Will obtain and continue patient's home medications. Diabetes mellitus type 2, insulin-dependent: A.c. HS Accu-Cheks and sliding scale insulin therapy at this time. Will obtain and continue patient's home medications. Chronic diastolic congestive heart failure: Will obtain and continue patient's home medications. Chronic kidney disease stage III: Will continue to monitor patient's kidney function. Kidney function appears stable at this time. Will consult nephrology as necessary. Hyperlipidemia : Will obtain and continue patient's home medications. Iron-deficiency anemia: Patient is having shortness of breath, hemoglobin is 7.8. Will transfuse 1 unit packed red blood cells. This will also help optimize wound healing. Discharge Plan: Home Plan to discharge in: 24 Hours - Advance Directives Does patient have a Living Will: Yes Does patient have a Durable POA for Healthcare: Yes - Code Status/Comfort Care Code Status Assessed: Yes (Patient is full code) Critical Care: No Time Spent Managing Pts Care (In Minutes): 55 <Mk Alonso - Last Filed: 09/27/19 17:58> - Plan Patient seen and examined. Case discussed at length with nurse practitioner. Agree with evaluation, assessment and plan of care. Anticipate improvement over the next 24 hr. Will have wound care evaluate and treat wounds. Will also discuss further with surgery. Patient may possibly need irrigation and debridem ent. Patient non compliant with medication and follow up. Will have social science instructor provide information on PCP. Compliance addressed in detail. Anticipate discharge in the next 24 hr. <Nimesh Barreto - Last Filed: 09/27/19 18:20>
[2019-09-27] MEDS ORDERED: PANTOPRAZOLE 40 MG INJ ONE (18:21)
[2019-09-27] MEDS ORDERED: NA CHLORIDE 0.9% 50 ML IV ONE (18:21)
[2019-09-27] MEDS ORDERED: HYDROCODONE/APAP 10/325 TAB PO PRN (18:37)
[2019-09-27] MEDS ORDERED: NA CHLORIDE 0.9% 250 ML IV SCH (18:37)
[2019-09-27] MEDS ORDERED: GLUCAGON 1 MG/VIAL IM PRN (18:37)
[2019-09-27] MEDS ORDERED: D50W 25 GM/50 ML SYRINGE/VIAL IV PRN (18:37)
[2019-09-27] MEDS ORDERED: ACETAMINOPHEN 500 MG TAB PO PRN (18:37)
[2019-09-27] MEDS ORDERED: ALBUTEROL INHALER 60 PUFF/8 GM IH PRN (18:56)
[2019-09-27] MEDS ORDERED: ACETAMINOPHEN 500 MG TAB PO ONE (19:00)
[2019-09-27] MEDS ORDERED: FUROSEMIDE 20 MG/ 2ML VIAL IV ONE (19:00)
[2019-09-27] MEDS: HYDRALAZINE HCL 20 MG/ML VIAL IV PRN (19:06)
[2019-09-27] MEDS: INSULIN -REGULAR HUMAN 50 UNIT/0.5 ML ML SQ SCH (21:00)
[2019-09-27 21:12] VITALS: BMI 29.9
[2019-09-28] MEDS: HEPARIN 5000 UNIT/ML 1 ML VIAL SQ SCH ×3 (00:45→22:16)
[2019-09-28] MEDS: INSULIN GLARGINE 100 UNITS/ML SQ SCH ×2 (00:45→21:00)
[2019-09-28] MEDS: ONDANSETRON 4 MG/2 ML VIAL IV PRN ×2 (01:48→09:58)
[2019-09-28] MEDS: HYDRALAZINE HCL 20 MG/ML VIAL IV PRN ×2 (02:54→14:38)
[2019-09-28 06:13] LABS: Absolute Lymphocytes (CBC) 1.9 K/uL (0.7-4.9); Basophils % 0.8 % (0-1.3); Hematocrit 28.2 % (36.0-45.0); Lymphocytes % 26.8 % (15.3-44.8); MPV 8.2 fL (7.6-11.3); RBC Red Blood Cell Count 3.25 M/uL (3.86-4.86)
[2019-09-28 06:22] LABS: Potassium 3.9 mmol/L (3.5-5.1)
[2019-09-28] MEDS: INSULIN -REGULAR HUMAN 50 UNIT/0.5 ML ML SQ SCH ×4 (07:30→21:00)
[2019-09-28] MEDS ORDERED: POTASSIUM 25 MEQ EFFERV TAB PO ONE (08:00)
[2019-09-28] MEDS: CLOPIDOGREL 75 MG TABLET PO SCH (08:32)
[2019-09-28] MEDS ORDERED: POTASSIUM CL SA 10 MEQ TAB PO ONE (09:00)
[2019-09-28] MEDS: HYDROMORPHONE HCL 0.5 MG/0.5 ML INJ IV PRN (09:50)
[2019-09-28] MEDS: AMLODIPINE 2.5 MG TAB PO SCH (09:51)
[2019-09-28] MEDS: FUROSEMIDE 40 MG TABLET PO SCH ×3 (09:51→21:00)
--- NOTE | 2019-09-28 12:49 | P.CNS ---
Date of Consult: 09/28/19 PC: I was asked to see this 64 year year old female in regards to a diabetic wound on the lateral aspect of her left foot. HPC: Patient apparently has had a wound there for the last couple weeks. When evaluated today it had been necrotic with foul odor as well as invasion with maggots. PMH: Diabetes, kidney failure, uterine cancer, hypertension, coronary artery disease PSHx: Previous hysterectomy, previous toe amputations SOC: Allergic to morphine vancomycin tramadol trazodone and nitroglycerin SYS REVIEW: O/E awake alert stable asking for food HEENT: Within normal limits Chest: Chest movement equal bile ABD: Negative LOCO: Has 2 ulcers on the lateral aspect of her left foot. 1 over the metacarpophalangeal joint, another between that and the heel appear to be full thickness in possibly down the bone DATA: Elevated white count IMPRESSION: Neglected diabetic foot ulcers PLAN: I will take her the operating room for surgical debridement of this ulcer. We will remove this necrotic debris. We will then hopefully be able to outline a wound management program for her and can arrange for follow-up once again at the wound center.
[2019-09-28] MEDS ORDERED: NA CHLORIDE 0.9% 1,000 ML ONE (15:05)
[2019-09-28] MEDS: D50W 25 GM/50 ML SYRINGE/VIAL IV ONE ×2 (15:32→19:33)
[2019-09-28] MEDS ORDERED: METOCLOPRAMIDE 10 MG/2mL INJ ONE (15:32)
[2019-09-28] MEDS: Levofloxacin500mg IV 500 MG/100 ML BAG IV SCH (15:41)
--- NOTE | 2019-09-28 16:09 | P.PN ---
Subjective Date of Service: 09/28/19 Primary Care Provider: [facility] Chief Complaint: Diabetic foot wound Review of Systems 10-point ROS is otherwise unremarkable Integumentary: As per HPI Physical Examination - Vital Signs Temperature: 97.2 F Blood Pressure: 175/79 Pulse: 61 Respirations: 18 Pulse Ox (%): 99 - Physical Exam General: Alert, In no apparent distress, Oriented x3 HEENT: Atraumatic, Normocephalic, PERRLA Neck: Supple Respiratory: Clear to auscultation bilaterally, Normal air movement Cardiovascular: No edema, Normal pulses, Regular rate/rhythm, Normal S1 S2 Capillary refill: <2 Seconds Gastrointestinal: Normal bowel sounds, Soft and benign Musculoskeletal: No erythema, No tenderness Integumentary: Diabetic ulcer (Left lateral foot x2) Neurological: Normal speech, Normal strength at 5/5 x4 extr, Normal tone, Sensation intact - Studies Laboratory Data (last 24 hrs) 09/27/19 15:45: Sodium 141, Potassium 3.8, BUN 38 H, Creatinine 1.66 H, Glucose 83, Magnesium 1.9, Total Bilirubin 0.4, AST 17, ALT 14, Alkaline Phosphatase 170 H 09/27/19 15:45: WBC 7.4, Hgb 7.8 L*, Hct 26.2 L, Plt Count 253 Assessment & Plan Discharge Plan: Home Plan to discharge in: 24 Hours - Code Status/Comfort Care Code Status Assessed: Yes (Patient is full code) Physician Review Additional Text: Assessment Multiple Diabetic foot wounds left lateral foot COPD Hypertension Coronary artery disease Diabetes mellitus type 2, insulin-dependent Chronic diastolic congestive heart failure Chronic kidney disease stage III Hyperlipidemia Iron-deficiency anemia Plan Multiple Diabetic foot wounds left lateral foot: General surgery has evaluated patient determined that they would benefit from a debridement. Patient is to be taken to the operating room for a formal debridement. Wound healing has been consulted as well to help manage patient wounds. technical services analyst to help patient obtain services with home health and medical supplies. DVT prophylaxis with heparin 5000 units subcutaneous twice daily. COPD: Will provide patient with albuterol inhaler. Patient medication has been continued Hypertension: The patient's home medications have been continued will continue to monitor closely. Coronary artery disease: The patient's home medication having continued Diabetes mellitus type 2, insulin-dependent: A.c. HS Accu-Cheks and sliding scale insulin therapy at this time. Will obtain and continue patient's home medications. Have also continue patient's home medications. Chronic diastolic congestive heart failure: Home medications have been continued. Chronic kidney disease stage III: Will continue to monitor patient's kidney function. Kidney function appears stable at this time. Will consult nephrology as necessary. Hyperlipidemia : Will obtain and continue patient's home medications. Iron-deficiency anemia: Patient's hemoglobin has improved after yesterday. Patient will be taken to surgery, will continue to monitor patient's H&H. Critical Care: No Time Spent Managing Pts Care (In Minutes): 55
[2019-09-28] MEDS ORDERED: propofoL 200 MG/20 ML VIAL IV ONE (18:22)
[2019-09-28] MEDS ORDERED: MIDAZOLAM HCL 2 MG/2 ML INJ ONE (18:22)
[2019-09-28] MEDS ORDERED: LIDOCAINE 1% MPF 5 ML VIAL ONE (18:22)
[2019-09-28] MEDS ORDERED: FENTANYL CITR 100 MCG/2 ML ONE (18:22)
[2019-09-28] MEDS ORDERED: KETOROLAC 30 MG/ML INJ ONE (18:46)
--- NOTE | 2019-09-28 19:05 | P.OP ---
Preoperative diagnosis: Diabetic foot ulcers lateral aspect left foot x2 Postoperative diagnosis: The same Primary procedure: Excision of necrotic tissue of diabetic ulcers x2 Secondary procedure: Sharp surgical debridement of necrotic tissue of diabetic ulcers x2 Anesthesia: General Estimated blood loss: Less than 10 cc Specimen: Necrotic debris identified not sent Operative Technique: The patient brought the operating room placed supine on the table. After the induction of adequate anesthesia the attention was turned towards the area of the left foot. This was scrubbed with a Betadine solution draped in usual manner. Attention was turned towards the ulcer on the lateral aspect over the head of the metatarsal phalangeal joint. This ulcer measures approximately 2 0. Cm by 3 cm in size. It is full thickness down to the covering so the joint. There was necrotic foul-smelling debris and the tissue in this area. The area was infiltrated with 0.25% Marcaine. Using electro cautery we opened the incision up and took back the skin edges of this ulcer. Once again this was brought down to the coverings over the joint itself. This necrotic tissue was excised back to healthy appearing tissue. Electro cautery was used to ensure adequate hemostasis. Attention was now turned towards the ulcer did lay between the heel and the MP joint. This ulcer measured again about 2 cm x 3 cm in size. Electro cautery was used to cut back to clean tissue all around the ulcer itself. This necrotic base then was excised using a cutting surgical curette, and a cutting 11 blade, and the use of electro cautery. Having countered good tissue we ensured adequate hemostasis. A sterile dressing was now applied She was stable when sent to recovery. Complications: None Transferred to: Recovery Room Condition: Good
[2019-09-28] MEDS ORDERED: SILVER NITRATE 1 APPL TOP ONE (20:07)
[2019-09-28] MEDS ORDERED: HYDROMORPHONE HCL 1 MG/ML INJ ONE (20:09)
[2019-09-28] MEDS ORDERED: D50W 25 GM/50 ML SYRINGE/VIAL IV ONE (20:26)
[2019-09-28] MEDS: JUVEN PACKET PO SCH (21:00)
[2019-09-28] MEDS: BUPROPRION HCL S.R. 150MG TAB PO SCH (21:00)
[2019-09-28] MEDS: carvediloL 12.5 MG TAB PO SCH (22:17)
[2019-09-28] MEDS: GABAPENTIN 100 MG CAP PO SCH (22:17)
[2019-09-28] MEDS: ENSURE HIGH PROTEIN 237 ML CAN PO SCH (22:17)
[2019-09-29] MEDS: ONDANSETRON 4 MG/2 ML VIAL IV PRN ×2 (01:51→21:40)
[2019-09-29] MEDS: HYDROMORPHONE HCL 0.5 MG/0.5 ML INJ IV PRN ×4 (01:53→22:16)
[2019-09-29 05:40] LABS: Absolute Lymphocytes (CBC) 1.3 K/uL (0.7-4.9); Hematocrit 26.4 % (36.0-45.0); Lymphocytes % 24.6 % (15.3-44.8); MPV 7.5 fL (7.6-11.3); RBC Red Blood Cell Count 3.05 M/uL (3.86-4.86)
[2019-09-29 05:49] LABS: Potassium 4.1 mmol/L (3.5-5.1)
[2019-09-29] MEDS: INSULIN -REGULAR HUMAN 50 UNIT/0.5 ML ML SQ SCH ×4 (07:30→20:29)
[2019-09-29] MEDS: FUROSEMIDE 40 MG TABLET PO SCH ×3 (09:00→16:26)
[2019-09-29] MEDS ORDERED: FLOVENT IH SCH (09:00)
[2019-09-29] MEDS: carvediloL 12.5 MG TAB PO SCH ×2 (09:12→20:28)
[2019-09-29] MEDS: SERTRALINE HCL 50 MG TAB PO SCH (09:13)
[2019-09-29] MEDS: AMLODIPINE 2.5 MG TAB PO SCH (09:13)
[2019-09-29] MEDS: CLOPIDOGREL 75 MG TABLET PO SCH (09:13)
[2019-09-29] MEDS: GABAPENTIN 100 MG CAP PO SCH ×3 (09:13→20:28)
[2019-09-29] MEDS: ATORVASTATIN 40 MG TAB PO SCH (09:13)
[2019-09-29] MEDS: BUPROPRION HCL S.R. 150MG TAB PO SCH ×2 (09:14→20:28)
[2019-09-29] MEDS: ENSURE HIGH PROTEIN 237 ML CAN PO SCH ×2 (09:15→20:29)
[2019-09-29] MEDS: JUVEN PACKET PO SCH ×2 (09:15→20:29)
[2019-09-29] MEDS: HEPARIN 5000 UNIT/ML 1 ML VIAL SQ SCH ×2 (09:27→20:28)
--- NOTE | 2019-09-29 15:44 | P.PN ---
Subjective Date of Service: 09/29/19 Primary Care Provider: [facility] Chief Complaint: Diabetic foot wound Subjective: Ambulating, Improving Review of Systems General: Unremarkable Eyes: Unremarkable ENT: Unremarkable Respiratory: Unremarkable Cardiovascular: Unremarkable Gastrointestinal: Nausea Genitourinary: Unremarkable Musculoskeletal: Unremarkable Integumentary: Unremarkable Neurological: Unremarkable Lymphatics: Unremarkable Physical Examination - Vital Signs Temperature: 97.5 F Blood Pressure: 150/80 Pulse: 56 Respirations: 16 Pulse Ox (%): 100 - Physical Exam General: Alert, In no apparent distress, Oriented x3 HEENT: Atraumatic, Normocephalic Neck: Supple Respiratory: Clear to auscultation bilaterally, Normal air movement Cardiovascular: Normal pulses, Regular rate/rhythm, Normal S1 S2 Capillary refill: <2 Seconds Gastrointestinal: Normal bowel sounds, Soft and benign Musculoskeletal: No contractures, No erythema, No tenderness Integumentary: No tenderness/swelling, No erythema, No warmth Neurological: Normal gait, Normal speech, Normal strength at 5/5 x4 extr, Normal tone Assessment & Plan Discharge Plan: Home Plan to discharge in: 24 Hours - Code Status/Comfort Care Code Status Assessed: Yes (full code) Physician Review Additional Text: Assessment Multiple Diabetic foot wounds left lateral foot COPD Hypertension Coronary artery disease Diabetes mellitus type 2, insulin-dependent Chronic diastolic congestive heart failure Chronic kidney disease stage III Hyperlipidemia Iron-deficiency anemia Plan Multiple Diabetic foot wounds left lateral foot: Patient had surgical debridement of foot wound yesterday with surgery. Patient tolerated procedure well there were no complications. Patient is recovering well but is still having some nausea and not tolerating her diet well. Patient would benefit from staying overnight to advance diet. Plan will be to discharge patient tomorrow. DVT prophylaxis with heparin 5000 units subcutaneous twice daily. COPD: Will provide patient with albuterol inhaler. Patient medication has been continued Hypertension: The patient's home medications have been continued will continue to monitor closely. Coronary artery disease: The patient's home medication having continued Diabetes mellitus type 2, insulin-dependent: A.c. HS Accu-Cheks and sliding scale insulin therapy at this time. Will obtain and continue patient's home medications. Have also continue patient's home medications. Chronic diastolic congestive heart failure: Home medications have been continued. Chronic kidney disease stage III: Will continue to monitor patient's kidney function. Kidney function appears stable at this time. Will consult nephrology as necessary. Hyperlipidemia : Will obtain and continue patient's home medications. Iron-deficiency anemia: H&H stable at this time will continue to monitor closely. Critical Care: No Time Spent Managing Pts Care (In Minutes): 55
[2019-09-29] MEDS: Levofloxacin500mg IV 500 MG/100 ML BAG IV SCH (16:26)
[2019-09-29] MEDS: HYDRALAZINE HCL 20 MG/ML VIAL IV PRN (16:27)
[2019-09-29] MEDS: INSULIN GLARGINE 100 UNITS/ML SQ SCH (21:09)
[2019-09-30] MEDS: ONDANSETRON 4 MG/2 ML VIAL IV PRN ×2 (04:25→11:48)
[2019-09-30] MEDS: HYDROMORPHONE HCL 0.5 MG/0.5 ML INJ IV PRN ×2 (04:25→11:48)
[2019-09-30 05:41] LABS: Potassium 4.3 mmol/L (3.5-5.1)
[2019-09-30 05:43] LABS: Absolute Lymphocytes (CBC) 1.5 K/uL (0.7-4.9); Basophils % 0.6 % (0-1.3); Hematocrit 26.6 % (36.0-45.0); Lymphocytes % 25.4 % (15.3-44.8); MPV 7.7 fL (7.6-11.3); RBC Red Blood Cell Count 3.04 M/uL (3.86-4.86)
[2019-09-30] MEDS: INSULIN -REGULAR HUMAN 50 UNIT/0.5 ML ML SQ SCH ×2 (07:30→13:07)
[2019-09-30 08:22] VITALS: O2SAT 94
[2019-09-30] MEDS ORDERED: SILVER NITRATE 1 APPL TOP ONE (09:00)
[2019-09-30] MEDS ORDERED: MEDIHONEY 44 ML TOPICAL TUBE TOP SCH (09:00)
[2019-09-30] MEDS: JUVEN PACKET PO SCH (09:00)
[2019-09-30] MEDS: ENSURE HIGH PROTEIN 237 ML CAN PO SCH (09:08)
[2019-09-30] MEDS: BUPROPRION HCL S.R. 150MG TAB PO SCH (09:08)
[2019-09-30] MEDS: FUROSEMIDE 40 MG TABLET PO SCH (09:09)
[2019-09-30] MEDS: HEPARIN 5000 UNIT/ML 1 ML VIAL SQ SCH (09:09)
[2019-09-30] MEDS: CLOPIDOGREL 75 MG TABLET PO SCH (09:10)
[2019-09-30] MEDS: carvediloL 12.5 MG TAB PO SCH (09:10)
[2019-09-30] MEDS: AMLODIPINE 2.5 MG TAB PO SCH (09:11)
[2019-09-30] MEDS: ATORVASTATIN 40 MG TAB PO SCH (09:11)
[2019-09-30] MEDS: SERTRALINE HCL 50 MG TAB PO SCH (09:11)
[2019-09-30] MEDS: GABAPENTIN 100 MG CAP PO SCH ×2 (09:12→13:10)
--- NOTE | 2019-09-30 12:43 | P.DS ---
Admission Date: 09/27/19 Discharge Date: 09/30/19 Primary Care Provider: Holbrook mary Disposition: DC HOME/HOME HEALTH CARE Discharge Condition: GOOD Reason for Admission: Diabetic foot wound Consultations: Surgery-Dr. Nayak Procedures: Surgery: Date of procedure: 09/28/2019 Surgeon: Dr. Nayak Preop diagnosis diabetic foot ulcer, lateral aspect left foot x2 Preop diagnosis same Primary procedure: Excision of necrotic tissue of diabetic ulcer x2 Secondary procedure: Sharp surgical debridement of necrotic tissue of diabetic ulcers x2 Estimated blood loss: Less than 10 cc Specimen: Necrotic debris Medical Problem List: Multiple Diabetic foot wounds left lateral foot status post excision of necrotic tissue of diabetic ulcer x2 with sharp surgical debridement of necrotic tissue COPD Hypertension Coronary artery disease Diabetes mellitus type 2, insulin-dependent Chronic diastolic congestive heart failure Chronic kidney disease stage III Hyperlipidemia Iron-deficiency anemia Depression with anxiety Brief History of Present Illness: 64-year-old female presented to the emergency room after patient found maggots in her left foot ulcer. Patient has not been compliant with follow up and medications. Patient was admitted for further evaluation and treatment. Hospital Course: Patient presented with multiple diabetic foot ulcers to the left foot. Patient with poor compliance and follow up. Patient was seen and evaluated by surgery. Surgical intervention was required. Surgical debridement was done to the foot. Patient tolerated procedure well. Patient has done well post operatively. At discharge home health and physical therapy will be arranged including wound care. At discharge patient will continue with Levaquin 250 mg daily for the next 7 days. Patient will continue with wound care including Medi Honey as recommended by surgery. Recommend follow up at the [facility] in 1 week to continue her care in treatment. Patient with history of COPD. This has remained stable. At discharge she will continue with Flovent and albuterol as directed. Patient will continue with home oxygen to maintain sats above 93%. Recommend follow up with pulmonology as directed. Patient with hypertension. This has remained stable. At discharge she will continue with carvedilol 12.5 mg 1 pill twice daily. Recommend to maintain blood pressure less 150/80. Further adjustment can be done by her PCP. Patient with chronic diastolic CHF. At discharge she will continue with a 1500 cc per day fluid restriction and low-salt diet. Patient will continue with diuretic therapy-Lasix 40 mg 1 pill twice daily. Recommend to monitor her weight daily. If her weight increases by more than 5 lb she is to contact her PCP for further recommendation. Patient with chronic renal disease stage 4. This has remained stable. Future medications will need to be renally dose. Antibiotic was adjusted per renal function. Recommend recheck BMP in 1 week to monitor progress. Recommend follow up with Nephrology to further address and monitor. Recommend no further use of nonsteroidal anti-inflammatories. Future medications would to be renally dose. Recommend follow up with nephrology in 1 week. Patient with diabetes mellitus type 2 insulin dependent. This has remained stable. At discharge she will continue with Levemir 10 units subcu once daily. Recommend to maintain blood sugar less 140 fasting and less than 200 meals. Further adjustment can be done by her PCP. Recommend follow up with her PCP to further monitor and adjust medication. Patient with hyperlipidemia. At discharge she will continue with Lipitor 40 mg daily. Patient with depression with anxiety. At discharge she will continue with her medications including Wellbutrin SR 150 mg 1 pill twice daily and Zoloft 25 mg daily. Further adjustment can be done by her PCP. Patient with diabetic neuropathy. At discharge she will continue with gabapentin 100 mg 1 pill 3 times a day. Patient with history of CAD. At discharge she will continue with aspirin 81 mg daily and Plavix 75 mg daily. Further adjustment can be done by her PCP or cardiology. Vital Signs/Physical Exam: Temp Pulse Resp BP Pulse Ox 97 F 58 16 184/85 H 100 09/30/19 12:00 09/30/19 12:00 09/30/19 12:00 09/30/19 12:00 09/30/19 12:00 General: Alert, In no apparent distress, Oriented x3, Oriented x1 HEENT: Atraumatic Neck: Supple Respiratory: Clear to auscultation bilaterally, Normal air movement Cardiovascular: Normal pulses, Regular rate/rhythm Gastrointestinal: Normal bowel sounds, Soft and benign, Non-distended Musculoskeletal: No tenderness, No warmth Integumentary: Other (Left foot bandaged) Neurological: Normal speech, Normal strength at 5/5 x4 extr, Normal tone, Normal affect Laboratory Data at Discharge: WBC 5.9 K/uL (4.3-10.9) 09/30/19 05:02 Hgb 8.2 g/dL (12.0-15.0) L 09/30/19 05:02 Hct 26.6 % (36.0-45.0) L 09/30/19 05:02 Plt Count 214 K/uL (152-406) 09/30/19 05:02 Sodium 142 mmol/L (136-145) 09/30/19 05:02 Potassium 4.3 mmol/L (3.5-5.1) 09/30/19 05:02 BUN 42 mg/dL (7-18) H 09/30/19 05:02 Creatinine 1.90 mg/dL (0.55-1.3) H 09/30/19 05:02 Glucose 131 mg/dL (74-106) H 09/30/19 05:02 Magnesium 1.9 mg/dL (1.8-2.4) 09/27/19 15:45 Total Bilirubin 0.4 mg/dL (0.2-1.0) 09/27/19 15:45 AST 17 U/L (15-37) 09/27/19 15:45 ALT 14 U/L (12-78) 09/27/19 15:45 Alkaline Phosphatase 170 U/L (45-117) H 09/27/19 15:45 Home Medications: Aspirin 81 mg PO DAILY #90 tab.chew 06/18/19 Atorvastatin Calcium [Lipitor] 40 mg PO DAILY #30 tablet 06/18/19 Carvedilol [Coreg] 12.5 mg PO BID #60 tablet 06/18/19 Clopidogrel Bisulfate [Plavix*] 75 mg PO DAILY #60 tablet 06/18/19 Gabapentin 1 tab PO TID #90 capsule 06/18/19 Insulin Detemir [Levemir Flextouch] 10 units SQ DAILY #1 insuln.pen 06/18/19 Albuterol Sulfate [Proair Hfa] 2 puff IH Q4H PRN 07/07/19 Fluticasone [Flovent Hfa 110*] 2 puff IH DAILY 07/07/19 Sertraline [Zoloft*] 25 mg PO DAILY 07/07/19 Buproprion S.r. [Wellbutrin Sr*] 1 tab PO BID 09/28/19 Furosemide 2 tab PO BID 09/28/19 Medihoney [Medihoney Woundcare Gel*] 1 appl TOP DAILY #1 tube 09/30/19 levoFLOXacin [Levaquin] 250 mg PO DAILY #7 tab 09/30/19 New Medications: levoFLOXacin [Levaquin] 250 mg PO DAILY #7 tab Medihoney [Medihoney Woundcare Gel*] 1 appl TOP DAILY #1 tube Patient Discharge Instructions: 1. Follow up with PCP in one week. 2. Patient presented with multiple diabetic foot ulcers to the left foot. Patient with poor compliance and follow up. Patient was seen and evaluated by surgery. Surgical intervention was required. Surgical debridement was done to the foot. Patient tolerated procedure well. Patient has done well post operatively. At discharge home health and physical therapy will be arranged including wound care. At discharge patient will continue with Levaquin 250 mg daily for the next 7 days. Patient will continue with wound care including Medi Honey as recommended by surgery. Recommend follow up at the wound [facility] in 1 week to continue her care in treatment. 3. Patient with history of COPD. This has remained stable. At discharge she will continue with Flovent and albuterol as directed. Patient will continue with home oxygen to maintain sats above 93%. Recommend follow up with pulmonology as directed. 4. Patient with hypertension. This has remained stable. At discharge she will continue with carvedilol 12.5 mg 1 pill twice daily. Recommend to maintain blood pressure less 150/80. Further adjustment can be done by her PCP. 5. Patient with chronic diastolic CHF. At discharge she will continue with a 1500 cc per day fluid restriction and low-salt diet. Patient will continue with diuretic therapy-Lasix 40 mg 1 pill twice daily. Recommend to monitor her weight daily. If her weight increases by more than 5 lb she is to contact her PCP for further recommendation. 6. Patient with chronic renal disease stage 4. This has remained stable. Future medications will need to be renally dose. Antibiotic was adjusted per renal function. Recommend recheck BMP in 1 week to monitor progress. Recommend follow up with Nephrology to further address and monitor. Recommend no further use of nonsteroidal anti-inflammatories. Future medications would to be renally dose. Recommend follow up with nephrology in 1 week. 7. Patient with diabetes mellitus type 2 insulin dependent. This has remained stable. At discharge she will continue with Levemir 10 units subcu once daily. Recommend to maintain blood sugar less 140 fasting and less than 20 0 meals. Further adjustment can be done by her PCP. Recommend follow up with her PCP to further monitor and adjust medication. 8. Patient with hyperlipidemia. At discharge she will continue with Lipitor 40 mg daily. 9. Patient with depression with anxiety. At discharge she will continue with her medications including Wellbutrin SR 150 mg 1 pill twice daily and Zoloft 25 mg daily. Further adjustment can be done by her PCP. 10. Patient with diabetic neuropathy. At discharge she will continue with gabapentin 100 mg 1 pill 3 times a day. 11. Patient with history of CAD. At discharge she will continue with aspirin 81 mg daily and Plavix 75 mg daily. Further adjustment can be done by her PCP or cardiology. Diet: ADA Activity: Fall precautions Time spent managing pt's care (in minutes): 55
[2019-09-30 16:24] VITALS: BP 150/80; TEMP 97.9
[2019-09-30] MEDS ORDERED: levoFLOXacin 500 MG TAB PO SCH (17:00)
== END 2019-09-30 16:20 | disposition home health service (06) | DRG 622 ==
LOC: ER 13:40 → ERHOLD 17:32 → OBSVTOIN 17:32 → 2ND 19:50
PROVIDERS: ADMIT Family Medicine; ATTEND Family Medicine
PROC: 8E0ZXY6 Isolation (ICD-10-PCS; 2019-09-27)
PROC: 30233N1 Transfusion of Nonautologous Red Blood Cells into Peripheral Vein, Percutaneous Approach (ICD-10-PCS; 2019-09-28)
PROC: 0JBR0ZZ Excision of Left Foot Subcutaneous Tissue and Fascia, Open Approach (ICD-10-PCS; principal; 2019-09-28 15:15)
DX: E11.621 Type 2 diabetes mellitus with foot ulcer (principal); U07.1 COVID-19; I50.32 Chronic diastolic (congestive) heart failure; I13.0 Hypertensive heart and chronic kidney disease with heart failure and stage 1 through stage 4 chronic kidney disease, or unspecified chronic kidney disease; L97.529 Non-pressure chronic ulcer of other part of left foot with unspecified severity; E11.22 Type 2 diabetes mellitus with diabetic chronic kidney disease; J44.9 Chronic obstructive pulmonary disease, unspecified; I25.10 Atherosclerotic heart disease of native coronary artery without angina pectoris; E78.5 Hyperlipidemia, unspecified; Z90.710 Acquired absence of both cervix and uterus; Z90.49 Acquired absence of other specified parts of digestive tract; Z89.412 Acquired absence of left great toe; Z79.82 Long term (current) use of aspirin; Z79.02 Long term (current) use of antithrombotics/antiplatelets; Z79.4 Long term (current) use of insulin; Z79.899 Other long term (current) drug therapy; D50.9 Iron deficiency anemia, unspecified; Z88.1 Allergy status to other antibiotic agents; Z88.5 Allergy status to narcotic agent; Z85.42 Personal history of malignant neoplasm of other parts of uterus; F41.8 Other specified anxiety disorders; N18.4 Chronic kidney disease, stage 4 (severe); E11.40 Type 2 diabetes mellitus with diabetic neuropathy, unspecified
CPT/HCPCS: 36415; 36430; 71045; 80048; 80076; 82947; 83605; 83735; 83880; 84145; 84484; 85025; 85652; 86850; 86900; 86901; 87040; 87070; 87077; 87186; 87205; 90471; 90714; 93005; 96374; 96375; 97112; 97161; 97530; 99285; C9113; J0360; J1170; J1644; J1815; J1940; J2250; J2405; J2704; J2765; J3010; J7030; P9016; U0002

== ENCOUNTER 2019-09-30 22:24 | Emergency (ER) | payer MEDICAID, OTHER ==
--- OUTSIDE RECORDS SUMMARY | 2019-09-30 22:27 | XMS REPORT | Clinical Summary ---
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 05/19/2017 [...] (Season Ended) 2019 Implants Implanted Type Area Review Rn Device Shelf Model / Identifier Expiration Serial / Date Lot Device Clsr Angio-Seal Vip 8fr [id number] - [id number] Cardiovascular N/A: [facility] [employer] 01/28/2018 [id number] / Implanted: Qty: 1 on 05/12/2017 by Sandra Gaytan MD [place] MED:CARDIAC / SURG [id number] Grft Eptfe-Heparin Rng [id number] - [id number] Graft/P atch Right: SUHAS MATHEW & 04/09/2021 [id number] / Implanted: Qty: 1 on 08/05/2017 by Mariela Ramirez MD [facility] ASSC:MED PRDT [id number] / N/A Results Not on fileafter 09/29/2018 Insurance Payer Benefit Plan / Group Subscriber ID Type Phone A ddress [place]ID [place] xxxxxxxxx Advance Directives For more information, please contact:[place] [id number] [place], [place] [phone] Code Status Date Activated Date Inactivated Comments [...]
--- OUTSIDE RECORDS SUMMARY | 2019-09-30 22:35 | XMS REPORT | Continuity of Care Document ---
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 y disorder, disorder, with with long-term long-term current current use of use of insulin insulin Smoker Smoker Disease Active [facility] - [facility]: Medical 00 Center Frequent Frequent Disease Active [facility] PVCs PVCs 2-12 [facility] - 00:00: Medical 00 Goldonna Essential Essential Problem Active [facility] (primary) (primary) Luke s - hypertensi hypertensi Me moria on on l [facility] ent Clinics Depression Depression Problem Active [facility] , , [facility] - unspecifie unspecifie Me moria d d l depression depression Ou tpati type type ent Clinics History of History of Problem Active [facility] cancer cancer [facility] Primary Primary Problem Active [facility] insomnia insomnia [facility] Chronic Chronic Problem Active [facility] acquired acquired [facility] - lymphedema lymphedema Me moria [facility] ent Clinics Chronic Chronic Diagnosis Active CHI [...] diastolic Luke s - congestive congestive Me [facility] heart heart l failure, failure, Outpat i NYHA class NYHA class en t 2 2 Clinics Chronic Chronic Problem Active [facility] obstructiv obstructiv Janna kes - e e Memoria pulmonary pulmonary l disease, disease, Outpat i unspecifie unspecifie en t d COPD d COPD Clinics type type 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 Active [facility] current current [facility] - use of use of Memoria insulin insulin l [facility] ent Clinics History of History of Problem Active [facility] stroke stroke [facility] Clinics 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[address] diabetes diabetes [facility] - mellitus mellitus Memori a with with l hyperglyce hyperglyce Ou tpati cr cr ent Clinics 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[address] diabetes diabetes [facility] - mellitus mellitus Memori a with with l diabetic diabetic Outpat i chronic chronic ent kidney kidney Clinics disease disease Kidney Kidney Problem Active [facility] disease disease [facility] Clinics Allergies, Adverse Reactions, Alerts Allergy Allergy Status Severity Reaction(s) Onset Inactive Treating Comm ents Source Name Type Date Date Clinician Trazodon Drug Active Nausea And [address] [...] Center s Nitrogly Propensi Active Nausea And IV NITRO [facility] cerin ty to Vomiting 04-21 ONLY [facility] - adverse 00:00: Medical reaction 00 Center s Vancomyc Propensi Active Nausea And [facility] in ty to Vomiting 04-21 [facility] - Analogue adverse 00:00: Medical s reaction 00 Goldonna s Vancomyc Adverse Active vomiting [facility] in HCl Reaction [facility] Clinics Nitrogly Adverse Active vomiting [facility] cerin Reaction [facility]ics Morphine Adverse Active headache, [facility] Sulfate Reaction breathing Luke s - [facility]oria l [facility] ent [facility] Clindamy Adverse Active vomiting [facility] t riley HCl Reaction [facility] Family History Family Member Diagnosis Comments Start Date Stop Date Source Natural father COPD [facility] Natural father Cancer [facility] Natural father Hypertension [facility] Natural mother No Known Problem [facility] Natural sister Asthma [facility] Natural sister COPD [facility] Social History Social Habit Start Date Stop Date Quantity Comments Source Sex Assigned At [facility] Cigarettes smoked 2017-09-02 2017-09-02 [facility] - current (pack per 00:00:00 00:00:00 Medical Center day) - Reported Cigarette 2017-09-02 2017-09-02 [facility] - pack-years 00:00:00 00:00:00 [facility] History of tobacco 2017-05-12 Current smoker [facility] use 00[facility]00 [facility] Smoking Status Start Date Stop Date Source Former smoker 2017-09-02 00:00:00 2017-09-02 00:00:[address] [facility] Medications Ordered Filled Start [...] needed. Max Daily Amount: 4 tablets melatonin 2017- Yes 10mg Take 10 mg CH I [...] CQ TD) 22:51: Medical 06 Center carvedilol 2017- Yes 12.5mg Q.5D Take [address] (COREG) 4-09 tablet [facility] - 12.5 MG 00:00: (12.5 mg Medica l tablet 00 total) by Center mouth 2 (two) times daily. NIFEdipine 2017-0 Yes 60mg QD Take 1 [facility] [...] [facility] (PLAVIX) 75 4-09 tablet (75 Janna kes - mg tablet 00:00: mg total) [...] Inject [facility] detemir 3-04 0.05 mLs [facility] - (LEVEMIR 00:00: (5 Units Medic al FLEXPEN) 00 total) Center 100 unit/mL subcutaneo (3 mL) InPn usly every injection morning. pen needle, Yes Use as [facility] diabetic 29 3-04 directed Luke s - gauge Ndle 00:00: to inject Me dical 00 long and Center short acting insulin.. aspirin 81 Yes 81mg QD Take [address] MG EC 1-22 by mouth [facility] - tablet 20:09: daily. [address] Trazodone Trazodone Yes Franki TAKE [address] HCl HCl Jas TABLET BY [facility] - MOUTH Memoria EVERYDAY l [facility] Isosorbide Isosorbide Yes Franki TAKE [address] [facility] Mononitrate Mononitrate Jas TABLET BY [facility] - ER ER MOUTH Memoria EVERY DAY l [facility] NIFEdipine NIFEdipine Yes Franki TAKE [address] [facility] ER ER Jas TABLET BY [facility] - MOUTH [facility]oria EVERY DAY l [facility] BuPROPion BuPROPion Yes Franki TAKE [address] HCl HCl Jas TABLET BY [facility] - MOUTH Memoria EVERY DAY l [facility] Acetaminoph Acetaminoph Yes Franki (Schedule [facility] en-Codeine en-Codeine Jas III Drug) Lubernardino - #3 #3 TAKE 1 Memoria TABLET [...] Test 00:00:00 (Season Ended) [code = Medic ks Center INFLUENZA VACCINE (Season Ended)] Future Scheduled 2017-08-16 HEMOGLOBIN A1C [code = [facility] - Test 00:00:00 HEMOGLOBIN A1C] Medical Cent er Future Scheduled [address] [facility] - Test 00:00:00 [facility] cervix (procedure) [code = 395162927] Future Scheduled [address] [facility] - Test 00:00:00 examination Medical Center (regime/therapy) [code = 335930893] Future Scheduled [address] [facility] [...] [facility] - Test 00:00:00 COLONOSCOPY [code = Medical Center COLON CANCER SCREENING COLONOSCOPY] Encounters Start End Encounter Admission Attending Care Care Encounter Source Date/Time Date/Time Type Type Clinicians Facility Department ID 2018-11-17 2018-11-17 Outpatient Alison Wilson [id number] 11:30:00 11:30:00 [facility] Medicine Outpati ent Clinics 2018-10-06 2018-10-06 Outpatient Alison Wilson [id number] 16:14:00 16:14:00 [facility] Medicine Medicine Outpati ent Clinics 2018-09-28 2018-09-28 Outpatient Alison Rosast [id number] 10:30:00 10:30:00 [facility] Results Test Description Test Time Test Comments Results Result Comments Source POCT-GLUCOSE METER 2017-09-05 17:13:00 Test Item Value Reference Range Interpretation Comme nts POC-GLUCOSE METER (ROBERT) (test 220 mg/dL 70-110 H TESTED AT [address] code = 1538) [facility] 7703 0 BASIC METABOLIC [id number] 15:47:00 Test Item Value Reference Range Interpretation [...] 697) EGFR (BEAKER) (test 25 mL/min/1.73 ESTIMA HIAN GFR IS code = 1092) sq m NOT ACCURATE CREATININE CLEARANCE IN PREDICTING GLOMERULAR FILTRATION RATE . ESTIMATED GFR I S NOT APPLICABLE FOR DIALYSIS PATIEN TS. POCT-GLUCOSE [id number] 11:30:00 Test Item Value Reference Range Interpretation Comments POC-GLUCOSE METER 268 mg/dL 70-110 H TESTED AT [place] [address] ([facility]) (test code = JULIANO Osborne [facility] 1538) [address] POCT-GLUCOSE [id number] 07:08:00 Test Item Value Reference Range Interpretation Comments POC-GLUCOSE METER 208 mg/dL 70-110 H TESTED AT [place] [address] ([facility]) (test code = JULIANO Osborne [facility] 1538) [address] CALCIUM, [id number] 06:47:00 Test Item Value Reference Range Interpretation Comments CALCIUM IONIZED (BEAKER) (test 1.11 mmol/L 1.12-1.27 L code = 698) PH, BLOOD (BEAKER) (test code = 7.40 1810) BASIC METABOLIC [id number] 06:40:00 Test Item Value Reference Range Interpretation [...] S NOT APPLICABLE FOR DIALYSIS PATIEN TS. [id number] 06:33:00 Test Item Value Reference Range Interpretation Comments PHOSPHORUS (BEAKER) (test code = 5.1 mg/dL 2.3-4.7 H 604) [id number] 06:33:00 Test Item Value Reference Range Interpretation Comments MAGNESIUM (BEAKER) (test code = 2.0 mg/dL 1.6-2.6 627) LACTIC ACID, VENOUS, WHOLE [id number] 06:02:00 Test Item Value Reference Range Interpretation Comments LACTATE BLOOD VENOUS (2) (BEAKER) 0.8 mmol/L 0.5-2.2 (test code = 2872) Effective 08/02/2015: Units/Reference Range ChangeNew: 0.5-2.2 mmol/L Previous: 5-20 mg/dLCBC W/PLT COUNT & AUTO [id number] 05:54:00 Test Item Value Reference Range Interpretation [...] PERCENT (BEAKER) (test code = 2801) POCT-GLUCOSE [id number] 21:30:00 Test Item Value Reference Range Interpretation Comments POC-GLUCOSE METER 248 mg/dL 70-110 H TESTED AT [facility] 6720 (BEAKER) (test code = JULIANO REYEZ 1538) [address] MARLEN [id number] 21:22:00Reason for exam:->fall, tailbone painFINAL REPORT RAD, [...] Talbot Verified Date/Time: 09/04/2017 21:22:03 Reading Location: [address] Reading Room POCT-GLUCOSE [id number] 17:37:00 Test Item Value Reference Range Interpretation Comments POC-GLUCOSE METER 222 mg/dL 70-110 H TESTED AT [place] [address] ([facility]) (test code = [facility] Dylon [facility] 1538) [address] POCT-GLUCOSE [id number] 13:55:00 Test Item Value Reference Range Interpretation Comments POC-GLUCOSE METER 194 mg/dL 70-110 H TESTED AT [place] [address] ([facility]) (test code = [facility] Dylon [facility] 1538) [address] POCT-GLUCOSE [id number] 12:34:00 Test Item Value Reference Range Interpretation Comments POC-GLUCOSE METER 229 mg/dL 70-110 H TESTED AT [place] [address] ([facility]) (test code = [facility] Dylon [facility] 1538) [address] POCT-GLUCOSE [id number] 08:00:00 Test Item Value Reference Range Interpretation Comments POC-GLUCOSE METER 159 mg/dL 70-110 H TESTED AT [place] [address] ([facility]) (test code = [facility] Dylon [facility] 1538) [address] CALCIUM, [id number] 06:00:00 Test Item Value Reference Range Interpretation Comments CALCIUM IONIZED ([facility]) (test 1.05 mmol/L 1.12-1.27 L code = 698) PH, BLOOD (BEAKER) (test code = 7.45 1810) [id number] 05:59:00 Test Item Value Reference Range Interpretation Comments PHOSPHORUS (BEAKER) (test code = 4.8 mg/dL 2.3-4.7 H 604) [id number] 05:59:00 Test Item Value Reference Range Interpretation Comments MAGNESIUM (BEAKER) (test code = 2.0 mg/dL 1.6-2.6 627) BASIC METABOLIC [id number] 05:59:00 Test Item Value Reference Range Interpretation [...] = 380) CBC W/PLT COUNT & AUTO [id number] 05:32:00 Test Item Value Reference Range Interpretation [...] PERCENT (BEAKER) (test code = 2801) POCT-GLUCOSE [id number] 20:36:00 Test Item Value Reference Range Interpretation Comments POC-GLUCOSE METER 211 mg/dL 70-110 H TESTED AT [facility] 6720 (BEAKER) (test code = JULIANO REYEZ 1538) [address] CREATININE, RANDOM [id number] 19:55:00 Test Item Value Reference Range Interpretation Comments CREATININE URINE (BEAKER) (test 16.1 mg/dL code = 375) Reference Range: No NormalsPROTEIN, RANDOM [id number] 19:55:00 Test Item Value Reference Range Interpretation Comments PROTEIN, URINE (BEAKER) (test code 102 mg/dL 0-14 H = 1569) POCT-GLUCOSE [id number] 18:04:00 Test Item Value Reference Range Interpretation Comments POC-GLUCOSE METER 177 mg/dL 70-110 H TESTED AT [facility] 67 (BEAKER) (test code = JULIANO Osborne [facility] 1538) [address] POCT-GLUCOSE [id number] 11:59:00 Test Item Value Reference Range Interpretation Comments POC-GLUCOSE METER 244 mg/dL 70-110 H TESTED AT [place] [address] (BEAKER) (test code = JULIANO Osborne [facility] 1538) [address] POCT-GLUCOSE [id number] 07:53:00 Test Item Value Reference Range Interpretation Comments POC-GLUCOSE METER 160 mg/dL 70-110 H TESTED AT [place] [address] (BEAKER) (test code = MATTHIASNC Dylon [facility] 1538) [address] BASIC METABOLIC [id number] 05:29:00 Test Item Value Reference Range Interpretation [...] S NOT APPLICABLE FOR DIALYSIS PATIEN TS. [id number] 05:21:00 Test Item Value Reference Range Interpretation Comments MAGNESIUM (BEAKER) (test code = 2.1 mg/dL 1.6-2.6 627) HEPATIC FUNCTION [id number] 05:21:00 Test Item Value Reference Range Interpretation [...] code = 23 U/L 6-55 347) TROPONIN [id number] 05:18:00 Test Item Value Reference Range Interpretation [...] PERCENT (BEAKER) (test code = 2801) TROPONIN [id number] 23:40:00 Test Item Value Reference Range Interpretation [...] acidosis, acute neurological disease, and persistent tachyarrhythmia.POCT-GLUCOSE [id number] 22:51:00 Test Item Value Reference Range Interpretation Comments POC-GLUCOSE METER 214 mg/dL 70-110 H TESTED AT [facility] 6720 (BEAKER) (test code = JULIANO [place] 1538) [address] RAD, CHEST, 1 VIEW, NON [id number] 21:42:00Reason for exam:->CHEST PAINShould this be performed at the bedside?->YesFINAL REPORT RAD, CHEST, 1 VIEW, NON DEPT INDICATION: CHEST PAIN COMPARISON: Chest x-ray 4 weeks ago TECHNIQUE: Single frontal view of the chest. IMPRESSION:Cardiomegaly.Mild pulmonary interstitial edema with a small right- sided effusion.No acute osseous abnormality. Signed: Kristin Abraham MDReport Verified Date/Time: 09/02/2017 21:42:11 Reading Location: [address] Reading Room CREATININE, RANDOM [id number] 21:10:00 Test Item Value Reference Range Interpretation Comments CREATININE URINE (BEAKER) (test 35.5 mg/dL code = 375) Reference Range: No NormalsSODIUM, RANDOM [id number] 21:10:00 Test Item Value Reference Range Interpretation Comments SODIUM URINE (BEAKER) (test code = 80 meq/L 243) Reference Range: No NormalsURINALYSIS W/ [id number] 20:59:00 Test Item Value Reference Range Interpretation [...] code = 514) SOURCE(BEAKER) (test code = 6545) BASIC METABOLIC [id number] 16:49:00 Test Item Value Reference Range Interpretation [...] S NOT APPLICABLE FOR DIALYSIS PATIEN TS. [id number] 16:38:00 Test Item Value Reference Range Interpretation [...] (BEAKER) (test code = 700) BASIC METABOLIC [id number] 13:43:00 Test Item Value Reference Range Interpretation [...] NOT APPLICABLE FOR DIALYSIS PATIEN TS. POCT-GLUCOSE [id number] 12:44:00 Test Item Value Reference Range Interpretation Comments POC-GLUCOSE METER 283 mg/dL 70-110 H TESTED AT [facility] 6720 (BEAKER) (test code = JULIANO [place] 1538) [address] CALCIUM, [id number] 07:03:00 Test Item Value Reference Range Interpretation Comments CALCIUM IONIZED (BEAKER) (test 1.02 mmol/L 1.12-1.27 L code = 698) PH, BLOOD (BEAKER) (test code = 7.43 1810) [id number] 05:28:00 Test Item Value Reference Range Interpretation Comments PHOSPHORUS (BEAKER) (test code = 3.3 mg/dL 2.3-4.7 604) [id number] 05:28:00 Test Item Value Reference Range Interpretation Comments MAGNESIUM (BEAKER) (test code = 1.5 mg/dL 1.6-2.6 L 627) BASIC METABOLIC [id number] 05:28:00 Test Item Value Reference Range Interpretation [...] PATIEN TS. CBC W/PLT COUNT & AUTO [id number] 05:06:00 Test Item Value Reference Range Interpretation [...] PERCENT (BEAKER) (test code = 2801) POCT-GLUCOSE [id number] 21:08:00 Test Item Value Reference Range Interpretation Comments POC-GLUCOSE METER 202 mg/dL 70-110 H TESTED AT [facility] 6720 (BEAKER) (test code = [facility] Dylon [facility] 1538) [address] POCT-GLUCOSE [id number] 16:50:00 Test Item Value Reference Range Interpretation Comments POC-GLUCOSE METER 287 mg/dL 70-110 H TESTED AT [place] [address] (BEAKER) (test code = [facility] Dylon [facility] 1538) [address] POCT-GLUCOSE [id number] 12:21:00 Test Item Value Reference Range Interpretation Comments POC-GLUCOSE METER 213 mg/dL 70-110 H TESTED AT [place] [address] (BEAKER) (test code = [facility] 1538) [address] POCT-GLUCOSE [id number] 08:28:00 Test Item Value Reference Range Interpretation Comments POC-GLUCOSE METER 178 mg/dL 70-110 H TESTED AT [place] [address] [facility] (test code = [facility] 1538) [address] CALCIUM, [id number] 07:06:00 Test Item Value Reference Range Interpretation Comments CALCIUM IONIZED (BEAKER) (test 0.99 mmol/L 1.12-1.27 L code = 698) PH, BLOOD (BEAKER) (test code = 7.42 1810) [id number] 05:37:00 Test Item Value Reference Range Interpretation Comments PHOSPHORUS (BEAKER) (test code = 3.5 mg/dL 2.3-4.7 604) [id number] 05:37:00 Test Item Value Reference Range Interpretation Comments MAGNESIUM (BEAKER) (test code = 1.6 mg/dL 1.6-2.6 627) BASIC METABOLIC [id number] 05:37:00 Test Item Value Reference Range Interpretation [...] PATIEN TS. CBC W/PLT COUNT & AUTO [id number] 05:07:00 Test Item Value Reference Range Interpretation [...] LYMPHOCYTES ABSOLUTE COUNT 2.72 K/ L 1.18-3.74 ([facility]) (test code = 414) MONOCYTES ABSOLUTE COUNT (AKER) 0.48 K/ L 0.24-0.36 H (test code = 415) EOSINOPHILS ABSOLUTE COUNT 0.26 K/ L 0.04-0.36 (AKER) (test code = 416) BASOPHILS ABSOLUTE COUNT (AKER) 0.04 K/ L 0.01-0.08 (test code = 417) IMMATURE GRANULOCYTES-RELATIVE 1 % 0-1 PERCENT ([facility]) (test code = 2801) POCT-GLUCOSE [id number] 21:24:00 Test Item Value Reference Range Interpretation Comments POC-GLUCOSE METER 255 mg/dL 70-110 H TESTED AT [place] [address] ([facility]) (test code = [facility] 1538) [address] POCT-GLUCOSE [id number] 17:11:00 Test Item Value Reference Range Interpretation Comments POC-GLUCOSE METER 244 mg/dL 70-110 H TESTED AT [place] [address] ([facility]) (test code = [facility] 1538) [address] POCT-GLUCOSE [id number] 11:54:00 Test Item Value Reference Range Interpretation Comments POC-GLUCOSE METER 209 mg/dL 70-110 H TESTED AT [place] [address] ([facility]) (test code = [facility] 1538) [address] POCT-GLUCOSE [id number] 08:15:00 Test Item Value Reference Range Interpretation Comments POC-GLUCOSE METER 132 mg/dL 70-110 H TESTED AT [place] [address] ([facility]) (test code = [facility] 1538) [address] RAD, CHEST, 1 VIEW, NON [id number] 07:44:00Reason for exam:->edemaShould this be performed at the bedside?->YesFINAL REPORT Chest one view AP 08/07/2017 7:44 AM CLINICAL INDICATION: edema COMPARISON: 05/31/2017 IMPRESSION: Cardiomediastinal contours are stable. There is mild pulmonary edema,asymmetric to the right. There are trace bilateral pleural effusions, with bibasilar linear atelectasis. Sternotomy wires remain midline. Signed: Eder Cespedes MDReport Verified Date/Time: 08/07/2017 07:44:22 Reading Location: [facility] Reading Room [id number] 05:30:00 Test Item Value Reference Range Interpretation Comments FERRITIN (BEAKER) (test code = 361) 87 ng/mL 5-275 CBC W/PLT COUNT & AUTO [id number] 05:21:00 Test Item Value Reference Range Interpretation [...] % 20-55 L (test code = 2590) [id number] 05:11:00 Test Item Value Reference Range Interpretation Comments PHOSPHORUS (BEAKER) (test code = 3.6 mg/dL 2.3-4.7 604) [id number] 05:11:00 Test Item Value Reference Range Interpretation Comments MAGNESIUM (BEAKER) (test code = 2.0 mg/dL 1.6-2.6 627) BASIC METABOLIC [id number] 05:11:00 Test Item Value Reference Range Interpretation [...] H (BEAKER) (test code = 700) CALCIUM, [id number] 04:58:00 Test Item Value Reference Range Interpretation Comments CALCIUM IONIZED (BEAKER) (test 1.04 mmol/L 1.12-1.27 L code = 698) PH, BLOOD (BEAKER) (test code = 7.41 1810) RETICULOCYTE [id number] 04:51:00 Test Item Value Reference Range Interpretation Comments RETICULOCYTE COUNT PCT (BEAKER) (test 1.2 % 0.5-1.7 code = 575) POCT-GLUCOSE [id number] 20:49:00 Test Item Value Reference Range Interpretation Comments POC-GLUCOSE METER 202 mg/dL 70-110 H TESTED AT [facility] 6720 (BEAKER) (test code = JULIANO Osborne [place] 1538) [address] CREATININE, RANDOM [id number] 18:38:00 Test Item Value Reference Range Interpretation Comments CREATININE URINE (BEAKER) (test 56.3 mg/dL code = 375) Reference Range: No NormalsPROTEIN, RANDOM [id number] 18:38:00 Test Item Value Reference Range Interpretation Comments PROTEIN, URINE (BEAKER) (test code 189 mg/dL 0-14 H = 1569) URINALYSIS W/ [id number] 18:34:00 Test Item Value Reference Range Interpretation [...] 516) SOURCE(BEAKER) (test code = Urine, Voided 4765) POCT-GLUCOSE [id number] 17:38:00 Test Item Value Reference Range Interpretation Comments POC-GLUCOSE METER 143 mg/dL 70-110 H TESTED AT [place] [address] (BEAKER) (test code = [facility] 1538) [address] POCT-GLUCOSE [id number] 12:30:00 Test Item Value Reference Range Interpretation Comments POC-GLUCOSE METER 218 mg/dL 70-110 H TESTED AT [place] [address] (BEAKER) (test code = [facility] 1538) [address] POCT-GLUCOSE [id number] 08:00:00 Test Item Value Reference Range Interpretation Comments POC-GLUCOSE METER 134 mg/dL 70-110 H TESTED AT [place] [address] (BEAKER) (test code = [facility] 1538) [address] CBC W/PLT COUNT & AUTO [id number] 04:23:00 Test Item Value Reference Range Interpretation [...] (BEAKER) (test code = 2801) BASIC METABOLIC [id number] 04:13:00 Test Item Value Reference Range Interpretation [...] S NOT APPLICABLE FOR DIALYSIS PATIEN TS. [id number] 04:10:00 Test Item Value Reference Range Interpretation Comments PHOSPHORUS (BEAKER) (test code = 4.9 mg/dL 2.3-4.7 H 604) [id number] 04:10:00 Test Item Value Reference Range Interpretation Comments MAGNESIUM (BEAKER) (test code = 1.4 mg/dL 1.6-2.6 L 627) [id number] 04:08:00 Test Item Value Reference Range Interpretation Comments FIBRINOGEN LEVEL (BEAKER) (test 548 mg/dl 225-434 H code = 658) [id number] 04:08:00 Test Item Value Reference Range Interpretation Comments PARTIAL THROMBOPLASTIN TIME 37.7 seconds 22.5-36.0 H (BEAKER) (test code = 760) PROTHROMBIN [id number] 04:07:00 Test Item Value Reference Range Interpretation Comments PROTIME (BEAKER) (test code = 16.2 seconds 11.7-14.7 H 759) INR (BEAKER) (test code = 370) 1.3 <=5.9 RECOMMENDED COUMADIN/WARFARIN INR THERAPY RANGESSTANDARD DOSE: 2.0 - 3.0 Includes: PROPHYLAXIS forvenous thrombosis, systemic embolization; TREATMENT for venous thrombosis and/or pulmonary embolus.HIGH RISK: Target INR is 2.5-3.5 for patients with mechanical heart valves.[id number] 16:59:00 Test Item Value Reference Range Interpretation Comments ACTIVATED CLOTTING TIME 219 sec TEST ED AT [place] [address] (BEAKER) (test code = [place] 441) [address] BASIC METABOLIC [id number] 14:25:00 Test Item Value Reference Range Interpretation [...] NOT APPLICABLE FOR DIALYSIS PATIEN TS. POCT-GLUCOSE [id number] 13:21:00 Test Item Value Reference Range Interpretation Comments POC-GLUCOSE METER 170 mg/dL 70-110 H TESTED AT [facility] 6720 [facility] (test code = [place]O [place] 1538) [address] POTASSIUM-STAT [id number] 13:20:00 Test Item Value Reference Range Interpretation Comments POTASSIUM (BEAKER) (test code = 4.2 meq/L 3.6-5.5 379) SODIUM NA-STAT [id number] 13:20:00 Test Item Value Reference Range Interpretation Comments SODIUM (BEAKER) (test code = 381) 133 meq/L 135-148 L HGB/HCT (H&H) - STAT [id number] 12:34:00 Test Item Value Reference Range Interpretation Comments HEMOGLOBIN (BEAKER) (test code = 10.8 g/dL 12.0-15.0 L 410) HEMATOCRIT (BEAKER) (test code = 32.0 % 36.0-45.0 L 411) POTASSIUM-STAT [id number] 08:15:00 Test Item Value Reference Range Interpretation Comments POTASSIUM (BEAKER) (test code = 4.1 meq/L 3.6-5.5 379) BLOOD GAS, [id number] 08:15:00 Test Item Value Reference Range Interpretation [...] code = 1819) 70.0 % SODIUM NA-STAT [id number] 08:15:00 Test Item Value Reference Range Interpretation Comments SODIUM (BEAKER) (test code = 381) 130 meq/L 135-148 L GLUCOSE-STAT [id number] 08:15:00 Test Item Value Reference Range Interpretation Comments GLUCOSE RANDOM (BEAKER) (test code 172 mg/dL 70-110 H = 652) HGB/HCT (H&H) - STAT [id number] 08:15:00 Test Item Value Reference Range Interpretation Comments HEMOGLOBIN (BEAKER) (test code = 8.8 g/dL 12.0-15.0 L 410) HEMATOCRIT (BEAKER) (test code = 26.0 % 36.0-45.0 L 411) BASIC METABOLIC [id number] 07:37:00 Test Item Value Reference Range Interpretation [...] PATIEN TS. CBC W/PLT COUNT & AUTO [id number] 07:20:00 Test Item Value Reference Range Interpretation [...] PERCENT (BEAKER) (test code = 2801) POCT-GLUCOSE [id number] 07:03:00 Test Item Value Reference Range Interpretation Comments POC-GLUCOSE METER 186 mg/dL 70-110 H TESTED AT [facility] 6720 (BEAKER) (test code = JULIANO Osborne [facility] 1538) [address] B-TYPE NATRIURETIC FACTOR (BNP)2017-06-10 12:44:00 Test Item Value Reference Range Interpretation Comments B-TYPE NATRIURETIC PEPTIDE 1264 pg/mL 0-100 H (BEAKER) (test code = 700) [id number] 12:36:00 Test Item Value Reference Range Interpretation Comments MAGNESIUM (BEAKER) (test code = 1.6 mg/dL 1.6-2.6 627) BASIC METABOLIC [id number] 12:36:00 Test Item Value Reference Range Interpretation [...] NOT APPLICABLE FOR DIALYSIS PATIEN TS. POCT-GLUCOSE [id number] 12:04:00 Test Item Value Reference Range Interpretation Comments POC-GLUCOSE METER 274 mg/dL 70-110 H TESTED AT [facility] 6720 (BEAKER) (test code = [facility] 1538) [address] POCT-GLUCOSE [id number] 07:21:00 Test Item Value Reference Range Interpretation Comments POC-GLUCOSE METER 137 mg/dL 70-110 H TESTED AT [facility] 6720 (BEAKER) (test code = [facility] 1538) [address] BASIC METABOLIC [id number] 05:10:00 Test Item Value Reference Range Interpretation [...] 0-0 (BEAKER) (test code = 413) POCT-GLUCOSE [id number] 21:23:00 Test Item Value Reference Range Interpretation Comments POC-GLUCOSE METER 240 mg/dL 70-110 H TESTED AT [place] [address] ([facility]) (test code = JULIANO Osborne [facility] 1538) [address] POCT-GLUCOSE [id number] 16:42:00 Test Item Value Reference Range Interpretation Comments POC-GLUCOSE METER 234 mg/dL 70-110 H TESTED AT [place] [address] ([facility]) (test code = [facility] MARYVALEAMANDA Osborne [facility] 1538) [address] POCT-GLUCOSE [id number] 13:22:00 Test Item Value Reference Range Interpretation Comments POC-GLUCOSE METER 166 mg/dL 70-110 H TESTED AT [place] [address] ([facility]) (test code = [facility] Dylon [facility] 1538) [address] RAD, CHEST, 1 VIEW, NON [id number] 09:43:00Reason for exam:->s/p ACBShould this be performed [...] Ring MDReport Verified Date/Time: 05/31/2017 09:43:30 ReadingLocation: [facility] B1 C013X Ortho Consult Reading Room POCT-GLUCOSE [id number] 06:57:00 Test Item Value Reference Range Interpretation Comments POC-GLUCOSE METER 136 mg/dL 70-110 H TESTED AT [facility] 6720 (BEAKER) (test code = JULIANO [place] 1538) [address] CALCIUM, [id number] 06:41:00 Test Item Value Reference Range Interpretation Comments CALCIUM IONIZED (BEAKER) (test 1.10 mmol/L 1.12-1.27 L code = 698) PH, BLOOD (BEAKER) (test code = 7.42 1810) [id number] 06:17:00 Test Item Value Reference Range Interpretation Comments PHOSPHORUS (BEAKER) (test code = 3.3 mg/dL 2.3-4.7 604) [id number] 06:17:00 Test Item Value Reference Range Interpretation Comments MAGNESIUM (BEAKER) (test code = 1.8 mg/dL 1.6-2.6 627) BASIC METABOLIC [id number] 06:17:00 Test Item Value Reference Range Interpretation [...] PATIEN TS. CBC W/PLT COUNT & AUTO [id number] 05:07:00 Test Item Value Reference Range Interpretation [...] NEUTROPHILS ABSOLUTE COUNT 3.84 K/ L 1.56-6.13 ([facility]) (test code = 670) LYMPHOCYTES ABSOLUTE COUNT 1.41 K/ L 1.18-3.74 ([facility]) (test code = 414) MONOCYTES ABSOLUTE COUNT ([facility]) 0.47 K/ L 0.24-0.36 H (test code = 415) EOSINOPHILS ABSOLUTE COUNT 0.11 K/ L 0.04-0.36 ([facility]) (test code = 416) BASOPHILS ABSOLUTE COUNT ([facility]) 0.05 K/ L 0.01-0.08 (test code = 417) IMMATURE GRANULOCYTES-RELATIVE 1 % 0-1 PERCENT ([facility]) (test code = 2801) POCT-GLUCOSE [id number] 20:56:00 Test Item Value Reference Range Interpretation Comments POC-GLUCOSE METER 196 mg/dL 70-110 H TESTED AT [place] [address] ([facility]) (test code = [facility] 1538) [address] POCT-GLUCOSE [id number] 16:42:00 Test Item Value Reference Range Interpretation Comments POC-GLUCOSE METER 196 mg/dL 70-110 H TESTED AT [place] [address] ([facility]) (test code = [facility] 1538) [address] POCT-GLUCOSE [id number] 11:45:00 Test Item Value Reference Range Interpretation Comments POC-GLUCOSE METER 215 mg/dL 70-110 H TESTED AT [place] [address] ([facility]) (test code = [facility] 1538) [address] RAD, CHEST, 1 VIEW, NON [id number] 11:15:00Reason for exam:->s/p ACBShould this be performed at the bedside?->YesFINAL REPORT Chest one view compared to May 28, 2017 Discussion: Airspace opacities are seen in both lower lung regions, probably atelectasis. Correlate clinically for infection. I could not exclude small effusions. No pneumothorax. Upper lungs clear. Signed: Jeannette Nava Verified Date/Time: 05/30/2017 11:15:07 Reading Location: [facility] Radiology Reading Room CALCIUM, [id number] 09:21:00 Test Item Value Reference Range Interpretation Comments CALCIUM IONIZED (BEAKER) (test 1.11 mmol/L 1.12-1.27 L code = 698) PH, BLOOD (BEAKER) (test code = 7.36 1810) BASIC METABOLIC [id number] 07:37:00 Test Item Value Reference Range Interpretation [...] S NOT APPLICABLE FOR DIALYSIS PATIEN TS. [id number] 07:28:00 Test Item Value Reference Range Interpretation Comments PHOSPHORUS (BEAKER) (test code = 3.8 mg/dL 2.3-4.7 604) [id number] 07:28:00 Test Item Value Reference Range Interpretation Comments MAGNESIUM (BEAKER) (test code = 1.9 mg/dL 1.6-2.6 627) CBC W/PLT COUNT & AUTO [id number] 07:26:00 Test Item Value Reference Range Interpretation [...] PERCENT (BEAKER) (test code = 2801) POCT-GLUCOSE [id number] 07:21:00 Test Item Value Reference Range Interpretation Comments POC-GLUCOSE METER 146 mg/dL 70-110 H TESTED AT [facility] 6720 (BEAKER) (test code = JULIANO [place] 1538) [address] POCT-GLUCOSE [id number] 22:02:00 Test Item Value Reference Range Interpretation Comments POC-GLUCOSE METER 201 mg/dL 70-110 H TESTED AT [facility] 6720 [facility] (test code = JULIANO Osborne [facility] 1538) [address] POCT-GLUCOSE [id number] 18:27:00 Test Item Value Reference Range Interpretation Comments POC-GLUCOSE METER 240 mg/dL 70-110 H TESTED AT [place] [address] ([facility]) (test code = [facility] M[place]VALEAM[place]DA Osborne [facility] 1538) [address] POCT-GLUCOSE [id number] 12:13:00 Test Item Value Reference Range Interpretation Comments POC-GLUCOSE METER 193 mg/dL 70-110 H TESTED AT [place] [address] ([facility]) (test code = [facility] M[place]VAL[place]AM[place]DA Osborne [facility] 1538) [address] POCT-GLUCOSE [id number] 09:02:00 Test Item Value Reference Range Interpretation Comments POC-GLUCOSE METER 132 mg/dL 70-110 H TESTED AT [place] [address] ([facility]) (test code = [facility] D[place] [facility] 1538) [address] CALCIUM, [id number] 05:42:00 Test Item Value Reference Range Interpretation Comments CALCIUM IONIZED (BEAKER) (test 1.12 mmol/L 1.12-1.27 code = 698) PH, BLOOD (BEAKER) (test code = 7.34 1810) COMPREHENSIVE METABOLIC [id number] 05:33:00 Test Item Value Reference Range Interpretation [...] S NOT APPLICABLE FOR DIALYSIS PATIEN TS. [id number] 05:32:00 Test Item Value Reference Range Interpretation Comments PHOSPHORUS (BEAKER) (test code = 3.6 mg/dL 2.3-4.7 604) [id number] 05:32:00 Test Item Value Reference Range Interpretation Comments MAGNESIUM (BEAKER) (test code = 2.2 mg/dL 1.6-2.6 627) CBC W/PLT COUNT & AUTO [id number] 05:01:00 Test Item Value Reference Range Interpretation [...] PERCENT (BEAKER) (test code = 2801) POCT-GLUCOSE [id number] 21:04:00 Test Item Value Reference Range Interpretation Comments POC-GLUCOSE METER 165 mg/dL 70-110 H TESTED AT [facility] 6720 ([facility]) (test code = JULIANO Osborne [facility] 1538) [address] POCT-GLUCOSE [id number] 17:30:00 Test Item Value Reference Range Interpretation Comments POC-GLUCOSE METER 236 mg/dL 70-110 H TESTED AT [facility] 6720 ([facility]) (test code = [facility] D[place] [facility] 1538) [address] RAD, CHEST, 1 VIEW, NON [id number] 13:53:00Reason for exam:->assess for ill-defined opacityShould this [...] Verified Date/Time: 05/28/2017 13:53:03 Reading Location: [address] Radiology Reading Room POCT-GLUCOSE [id number] 11:53:00 Test Item Value Reference Range Interpretation Comments POC-GLUCOSE METER 215 mg/dL 70-110 H TESTED AT [place] [address] (BEAKER) (test code = [facility] 1538) [address] POCT-GLUCOSE [id number] 08:32:00 Test Item Value Reference Range Interpretation Comments POC-GLUCOSE METER 168 mg/dL 70-110 H TESTED AT [place] [address] (BEAKER) (test code = [facility] 1538) [address] CALCIUM, [id number] 05:44:00 Test Item Value Reference Range Interpretation Comments CALCIUM IONIZED (BEAKER) (test 1.09 mmol/L 1.12-1.27 L code = 698) PH, BLOOD (BEAKER) (test code = 7.38 1810) [id number] 05:44:00 Test Item Value Reference Range Interpretation Comments PHOSPHORUS (BEAKER) (test code = 3.5 mg/dL 2.3-4.7 604) [id number] 05:44:00 Test Item Value Reference Range Interpretation Comments MAGNESIUM (BEAKER) (test code = 1.9 mg/dL 1.6-2.6 627) BASIC METABOLIC [id number] 05:44:00 Test Item Value Reference Range Interpretation [...] PATIEN TS. CBC W/PLT COUNT & AUTO [id number] 05:05:00 Test Item Value Reference Range Interpretation [...] PERCENT (BEAKER) (test code = 2801) POCT-GLUCOSE [id number] 21:03:00 Test Item Value Reference Range Interpretation Comments POC-GLUCOSE METER 173 mg/dL 70-110 H TESTED AT [place] [address] ([facility]) (test code = [facility] 1538) [address] [id number] 18:15:00 Test Item Value Reference Range Interpretation Comments ACTIVATED CLOTTING TIME 147 sec TEST ED AT [place] [address] ([facility]) (test code = [facility] 441) [address] [id number] 18:15:00 Test Item Value Reference Range Interpretation Comments ACTIVATED CLOTTING TIME 246 sec TEST ED AT [place] [address] ([facility]) (test code = [facility] 441) [address] POCT-GLUCOSE [id number] 12:39:00 Test Item Value Reference Range Interpretation Comments POC-GLUCOSE METER 219 mg/dL 70-110 H TESTED AT [place] [address] ([facility]) (test code = [facility] 1538) [address] RAD, CHEST, 1 VIEW, NON [id number] 10:11:00Reason for exam:->pl effusionShould this be performed at the bedside?->YesFINAL REPORT Chest one view compared to May 26 Discussion: There is cardiac prominence. Upper lungs are clear. Ill-defined basilar densities are similar probably atelectasis. No gross effusion or pneumothorax with bilateral chest tubes in place. Signed: Jeannette Nava MDReport Verified Date/Time: 05/27/2017 10:11:44 [facility] POCT-GLUCOSE METER 2017-05-27 07:05:00 Test Item Value Reference Range Interpretation Comments POC-GLUCOSE METER 167 mg/dL 70-110 H TESTED AT [facility] 6720 (BEAKER) (test code = [place]O [place] 1538) [address] CALCIUM, [id number] 06:20:00 Test Item Value Reference Range Interpretation Comments CALCIUM IONIZED (BEAKER) (test 0.98 mmol/L 1.12-1.27 L code = 698) PH, BLOOD (BEAKER) (test code = 7.50 1810) [id number] 04:56:00 Test Item Value Reference Range Interpretation Comments PHOSPHORUS (BEAKER) (test code = 2.6 mg/dL 2.3-4.7 604) [id number] 04:56:00 Test Item Value Reference Range Interpretation Comments MAGNESIUM (BEAKER) (test code = 2.0 mg/dL 1.6-2.6 627) BASIC METABOLIC [id number] 04:56:00 Test Item Value Reference Range Interpretation [...] PATIEN TS. CBC W/PLT COUNT & AUTO [id number] 04:36:00 Test Item Value Reference Range Interpretation [...] EOSINOPHILS ABSOLUTE COUNT 0.22 K/ L 0.04-0.36 ([facility]) (test code = 416) BASOPHILS ABSOLUTE COUNT ([facility]) 0.05 K/ L 0.01-0.08 (test code = 417) IMMATURE GRANULOCYTES-RELATIVE 1 % 0-1 PERCENT ([facility]) (test code = 2801) POCT-GLUCOSE [id number] 21:29:00 Test Item Value Reference Range Interpretation Comments POC-GLUCOSE METER 147 mg/dL 70-110 H TESTED AT [place] [address] ([facility]) (test code = [facility] 1538) [address] POCT-GLUCOSE [id number] 17:51:00 Test Item Value Reference Range Interpretation Comments POC-GLUCOSE METER 224 mg/dL 70-110 H TESTED AT [place] [address] ([facility]) (test code = [facility] 1538) [address] POCT-GLUCOSE [id number] 13:53:00 Test Item Value Reference Range Interpretation Comments POC-GLUCOSE METER 182 mg/dL 70-110 H TESTED AT [place] [address] ([facility]) (test code = [facility] 1538) [address] RAD, CHEST, 1 VIEW, NON [id number] 08:44:00Reason for exam:->pl effusionShould this be performed [...] No other significant change. Signed: Gene Ramirez MDRepemily Verified Date/Time: 05/26/2017 08:44:25 Reading Location: [address] Radiology Reading Room POCT- GLUCOSE [id number] 07:43:00 Test Item Value Reference Range Interpretation Comments POC-GLUCOSE METER 113 mg/dL 70-110 H TESTED AT [facility] 6720 (BEAKER) (test code = [place]IAN[place] 1538) [address] CALCIUM, [id number] 06:31:00 Test Item Value Reference Range Interpretation Comments CALCIUM IONIZED (BEAKER) (test 1.07 mmol/L 1.12-1.27 L code = 698) PH, BLOOD (BEAKER) (test code = 7.38 1810) [id number] 04:51:00 Test Item Value Reference Range Interpretation Comments PHOSPHORUS (BEAKER) (test code = 3.2 mg/dL 2.3-4.7 604) [id number] 04:51:00 Test Item Value Reference Range Interpretation Comments MAGNESIUM (BEAKER) (test code = 2.1 mg/dL 1.6-2.6 627) BASIC METABOLIC [id number] 04:51:00 Test Item Value Reference Range Interpretation [...] PATIEN TS. CBC W/PLT COUNT & AUTO [id number] 04:27:00 Test Item Value Reference Range Interpretation [...] PERCENT (BEAKER) (test code = 2801) POCT-GLUCOSE [id number] 23:48:00 Test Item Value Reference Range Interpretation Comments POC-GLUCOSE METER 123 mg/dL 70-110 H TESTED AT [facility] 6720 (BEAKER) (test code = JULIANO Osborne [place] 1538) [address] POCT-GLUCOSE [id number] 16:46:00 Test Item Value Reference Range Interpretation Comments POC-GLUCOSE METER 178 mg/dL 70-110 H TESTED AT [facility] 6720 (BEAKER) (test code = [place]IANO [place] 1538) [address] BASIC METABOLIC [id number] 05:53:00 Test Item Value Reference Range Interpretation [...] S NOT APPLICABLE FOR DIALYSIS PATIEN TS. [id number] 05:52:00 Test Item Value Reference Range Interpretation Comments PHOSPHORUS (BEAKER) (test code = 4.2 mg/dL 2.3-4.7 604) [id number] 05:52:00 Test Item Value Reference Range Interpretation Comments MAGNESIUM (BEAKER) (test code = 2.3 mg/dL 1.6-2.6 627) CALCIUM, [id number] 05:27:00 Test Item Value Reference Range Interpretation Comments CALCIUM IONIZED (BEAKER) (test 1.12 mmol/L 1.12-1.27 code = 698) PH, BLOOD (BEAKER) (test code = 7.38 1810) CBC W/PLT COUNT & AUTO [id number] 05:07:00 Test Item Value Reference Range Interpretation [...] 417) IMMATURE GRANULOCYTES-RELATIVE 1 % 0-1 PERCENT ([facility]) (test code = 2801) RAD, CHEST, 1 VIEW, NON [id number] 04:45:00Reason for exam:->pl effusionShould this be performed at the bedside?->YesFINAL REPORT RAD, CHEST, 1 VIEW, NON DEPT INDICATION: pl effusion COMPARISON:Prior day's exam FINDINGS: Portable frontal view of the chest. IMPRESSION: Support Lines: Stable.Lungs and pleura: Unchanged airspace and pleural opacities. No pneumothorax.Heart and mediastinum: Stable contours. Stable surgical changes.Additional findings: None. Signed: JR Boswell Robert MDReport Verified Date/Time: 05/25/2017 04:45:08 Reading Location: [address] Body Reading Room POCT-GLUCOSE [id number] 01:52:00 Test Item Value Reference Range Interpretation Comments POC-GLUCOSE METER 126 mg/dL 70-110 H TESTED AT [place] [address] ([facility]) (test code = JULIANO Osborne [facility] 1538) [address] POCT-GLUCOSE [id number] 13:07:00 Test Item Value Reference Range Interpretation Comments POC-GLUCOSE METER 118 mg/dL 70-110 H TESTED AT [place] [address] ([facility]) (test code = JULIANO Osborne [facility] 1538) [address] BRONCHIAL CULTURE + GRAM [id number] 11:35:00 Test Item Value Reference Range Interpretation Comments CULTURE ([facility]) (test code = 1095) Amikacin (test code [...] <1+ gram (BEAKER) (test code = positive 162385) cocci in pairs GRAM STAIN RESULT 1+ gram (BEAKER) (test code = variable rods 438123) 1+ Normal respiratory todd presentRAD, CHEST, 1 VIEW, NON [id number] 06:50:00Reason for exam:->pl effusionShould this be performed at the bedside?->YesFINAL REPORT RAD, CHEST, 1 VIEW, NON DEPT INDICATION: pl effusion COMPARISON:Prior day's exam FINDINGS: Portable frontal view of the chest. IMPRESSION: Support Lines: Stable.Lungs and pleura: Unchanged airspace and pleural opacities. No pneumothorax.Heart and mediastinum: Stable contours. Stable surgical changes.Additional findings: None. Signed: JR Boswell Robert MDReport Verified Date/Time: 05/24/2017 06:50:08 Reading Location: [facility] B1 C013Y CT Body Reading Room BASIC METABOLIC [id number] 04:19:00 Test Item Value Reference Range Interpretation [...] NOT APPLICABLE FOR DIALYSIS PATIEN TS. CALCIUM, [id number] 04:16:00 Test Item Value Reference Range Interpretation Comments CALCIUM IONIZED (BEAKER) (test 1.06 mmol/L 1.12-1.27 L code = 698) PH, BLOOD (BEAKER) (test code = 7.40 1810) [id number] 04:11:00 Test Item Value Reference Range Interpretation Comments PHOSPHORUS (BEAKER) (test code = 6.0 mg/dL 2.3-4.7 H 604) [id number] 04:11:00 Test Item Value Reference Range Interpretation Comments MAGNESIUM (BEAKER) (test code = 2.4 mg/dL 1.6-2.6 627) CBC W/PLT COUNT & AUTO [id number] 03:50:00 Test Item Value Reference Range Interpretation [...] PERCENT (BEAKER) (test code = 2801) POCT-GLUCOSE [id number] 20:45:00 Test Item Value Reference Range Interpretation Comments POC-GLUCOSE METER 143 mg/dL 70-110 H TESTED AT [facility] 67 ([facility]) (test code = JULIANO Osborne [facility] 1538) 15[address] POCT-GLUCOSE [id number] 20:45:00 Test Item Value Reference Range Interpretation Comments POC-GLUCOSE METER 145 mg/dL 70-110 H TESTED AT [facility] 6720 ([facility]) (test code = JULIANO Osborne [place] 1538) [address] [id number] 13:37:00 Test Item Value Reference Range Interpretation Comments PREALBUMIN (BEAKER) 10 mg/dL 14-45 L Specimen slightly (test code = 586) hemolyzed OXYGEN SATURATION, [id number] 12:31:00 Test Item Value Reference Range Interpretation Comments O2 SATURATION (MEASURED) (BEAKER) 94.5 % (test code = 1455) [id number] 11:02:00 Test Item Value Reference Range Interpretation Comments PREALBUMIN (BEAKER) (test code = 10 mg/dL 14-45 L 586) RAD, CHEST, 1 VIEW, NON [id number] 05:14:00while patient is intubated or has chest [...] MDReport Verified Date/Time: 05/23/2017 05:14:04 Reading Location: [address] Body Reading Room BASIC METABOLIC [id number] 03:48:00 Test Item Value Reference Range Interpretation [...] S NOT APPLICABLE FOR DIALYSIS PATIEN TS. [id number] 03:46:00 Test Item Value Reference Range Interpretation Comments MAGNESIUM (BEAKER) 2.4 mg/dL 1.6-2.6 Specimen slightly (test code = 627) hemolyzed [id number] 03:46:00 Test Item Value Reference Range Interpretation Comments PHOSPHORUS (BEAKER) 6.5 mg/dL 2.3-4.7 H Specimen slightly (test code = 604) hemolyzed CBC W/PLT COUNT & AUTO [id number] 03:26:00 Test Item Value Reference Range Interpretation [...] (BEAKER) (test code = 2801) BLOOD GAS, [id number] 03:18:00 Test Item Value Reference Range Interpretation [...] (test code = 1819) 36.0 % CALCIUM, [id number] 16:32:00 Test Item Value Reference Range Interpretation Comments CALCIUM IONIZED (BEAKER) (test 1.11 mmol/L 1.12-1.27 L code = 698) PH, BLOOD (BEAKER) (test code = 7.39 1810) BASIC METABOLIC [id number] 15:43:00 Test Item Value Reference Range Interpretation [...] NOT APPLICABLE FOR DIALYSIS PATIEN TS. POCT-GLUCOSE [id number] 12:53:00 Test Item Value Reference Range Interpretation Comments POC-GLUCOSE METER 118 mg/dL 70-110 H TESTED AT [place] [id number] ([facility]) (test code = [facility] [address] BLOOD GAS, [id number] 10:42:00 Test Item Value Reference Range Interpretation [...] (test code = 1819) 40.0 % POCT-GLUCOSE [id number] 06:46:00 Test Item Value Reference Range Interpretation Comments POC-GLUCOSE METER 106 mg/dL 70-110 TESTED AT [place] [address] ([facility]) (test code = [facility] 1538) [address] RAD, CHEST, 1 VIEW, NON [id number] 05:05:00while patient is intubated or has chest [...] MDReport Verified Date/Time: 05/22/2017 05:05:00 Reading Location: [facility] C013Y CT Body ReadingRoom BASIC METABOLIC [id number] 05:00:00 Test Item Value Reference Range Interpretation [...] S NOT APPLICABLE FOR DIALYSIS PATIEN TS. [id number] 04:41:00 Test Item Value Reference Range Interpretation Comments PHOSPHORUS (BEAKER) (test code = 6.4 mg/dL 2.3-4.7 H 604) [id number] 04:41:00 Test Item Value Reference Range Interpretation Comments MAGNESIUM (BEAKER) (test code = 2.6 mg/dL 1.6-2.6 627) CALCIUM, [id number] 04:26:00 Test Item Value Reference Range Interpretation Comments CALCIUM IONIZED (BEAKER) (test 1.09 mmol/L 1.12-1.27 L code = 698) PH, BLOOD (BEAKER) (test code = 7.40 1810) OXYGEN SATURATION, [id number] 04:25:00 Test Item Value Reference Range Interpretation Comments O2 SATURATION (MEASURED) (BEAKER) 77.0 % (test code = 1455) CBC W/PLT COUNT & AUTO [id number] 04:17:00 Test Item Value Reference Range Interpretation [...] code = 2801) LACTIC ACID, ARTERIAL, WHOLE [id number] 00:07:00 Test Item Value Reference Range Interpretation Comments LACTATE BLOOD 1.0 mmol/L 0.5-2.2 Specimen sligh tly ARTERIAL (2) (BEAKER) hemoly zed (test code = 2874) Effective 08/02/2015: Units/Reference Range ChangeNew: 0.5-2.2 mmol/L Previous: 5-20 mg/dLPOCT-GLUCOSE [id number] 23:47:00 Test Item Value Reference Range Interpretation Comments POC-GLUCOSE METER 180 mg/dL 70-110 H TESTED AT [facility] 6720 (BEAKER) (test code = JULIANO REYEZ 1538) [address] BLOOD GAS, [id number] 23:46:00 Test Item Value Reference Range Interpretation [...] code = 1819) 100.0 % SODIUM NA-STAT [id number] 23:46:00 Test Item Value Reference Range Interpretation Comments SODIUM (BEAKER) (test code = 381) 134 meq/L 135-148 L GLUCOSE-STAT [id number] 23:46:00 Test Item Value Reference Range Interpretation Comments GLUCOSE RANDOM (BEAKER) (test code 119 mg/dL 70-110 H = 652) HGB/HCT (H&H) - STAT [id number] 23:46:00 Test Item Value Reference Range Interpretation Comments HEMOGLOBIN (BEAKER) (test code = 8.8 g/dL 12.0-15.0 L 410) HEMATOCRIT (BEAKER) (test code = 26.0 % 36.0-45.0 L 411) OXYGEN SATURATION, [id number] 23:45:00 Test Item Value Reference Range Interpretation Comments O2 SATURATION (MEASURED) (BEAKER) 68.1 % (test code = 1455) POTASSIUM-STAT [id number] 23:45:00 Test Item Value Reference Range Interpretation Comments POTASSIUM (BEAKER) (test code = 5.5 meq/L 3.6-5.5 379) POCT-GLUCOSE [id number] 20:58:00 Test Item Value Reference Range Interpretation Comments POC-GLUCOSE METER 133 mg/dL 70-110 H TESTED AT [place] [address] ([facility]) (test code = JULIANO [place] 1538) [address] POCT-GLUCOSE [id number] 17:58:00 Test Item Value Reference Range Interpretation Comments POC-GLUCOSE METER 210 mg/dL 70-110 H [facility] AT [place] [address] [facility] (test code = JULIANO [place] 1538) [address] POCT-GLUCOSE [id number] 17:58:00 Test Item Value Reference Range Interpretation Comments POC-GLUCOSE METER 211 mg/dL 70-110 H TESTED AT [place] [address] [facility] (test code = JULIANO [place] 1538) [address] POCT-GLUCOSE [id number] 17:58:00 Test Item Value Reference Range Interpretation Comments POC-GLUCOSE METER 232 mg/dL 70-110 H TESTED AT [place] [address] (BEAKER) (test code = JULIANO Osborne [facility] 1538) [address] POCT-GLUCOSE [id number] 17:58:00 Test Item Value Reference Range Interpretation Comments POC-GLUCOSE METER 262 mg/dL 70-110 H TESTED AT [place] [address] (BEAKER) (test code = JULIANO Osborne [facility] 1538) [address] BLOOD GAS, [id number] 17:01:00 Test Item Value Reference Range Interpretation [...] (test code = 1819) 60.0 % POTASSIUM-STAT [id number] 17:00:00 Test Item Value Reference Range Interpretation Comments POTASSIUM (BEAKER) (test code = 4.8 meq/L 3.6-5.5 379) POCT-GLUCOSE [id number] 15:52:00 Test Item Value Reference Range Interpretation Comments POC-GLUCOSE METER 267 mg/dL 70-110 H TESTED AT [place] [address] (BEAKER) (test code = JULIANO Osborne [facility] 1538) [address] POCT-GLUCOSE [id number] 14:42:00 Test Item Value Reference Range Interpretation Comments POC-GLUCOSE METER 231 mg/dL 70-110 H TESTED AT [place] [address] (BEAKER) (test code = JULIANO Osborne [facility] 1538) [address] BODY FLUID CELL COUNT WITH [id number] 14:41:00 Test Item Value Reference Range Interpretation [...] FLUID (BEAKER) EDTA Tube (test code = 8183) BASIC METABOLIC [id number] 14:11:00 Test Item Value Reference Range Interpretation [...] S NOT APPLICABLE FOR DIALYSIS PATIEN TS. [id number] 14:08:00 Test Item Value Reference Range Interpretation Comments PHOSPHORUS (BEAKER) (test code = 7.2 mg/dL 2.3-4.7 H 604) [id number] 14:08:00 Test Item Value Reference Range Interpretation Comments MAGNESIUM (BEAKER) (test code = 2.6 mg/dL 1.6-2.6 627) POCT-GLUCOSE [id number] 12:49:00 Test Item Value Reference Range Interpretation Comments POC-GLUCOSE METER 224 mg/dL 70-110 H TESTED AT [facility] 6720 ([facility]) (test code = JULIANO Osborne [place] 1538) [address] POCT-GLUCOSE [id number] 12:49:00 Test Item Value Reference Range Interpretation Comments POC-GLUCOSE METER 248 mg/dL 70-110 H TESTED AT [facility] 6720 ([facility]) (test code = JULIANO Osborne [place] 1538) [address] RAD, CHEST, 1 VIEW, NON [id number] 12:32:00Reason for exam:->re-intubationShould this be performed at [...] pneumothorax is grossly unchanged. Signed: Magdalena White [facility] Verified Date/Time: 05/21/2017 12:32:08 Reading Location: [facility] Radiology Reading Room POTASSIUM-STAT [id number] 12:28:00 Test Item Value Reference Range Interpretation Comments POTASSIUM (BEAKER) (test code = 5.5 meq/L 3.6-5.5 379) BLOOD GAS, [id number] 12:28:00 Test Item Value Reference Range Interpretation [...] code = 1819) 100.0 % BLOOD GAS, [id number] 10:53:00 Test Item Value Reference Range Interpretation [...] 36.0 % RAD, CHEST, 1 VIEW, NON [id number] 08:46:00while patient is intubated or has chest [...] apical pneumothorax is suspected. Signed: Magdalena White Verified Date/Time: 05/21/2017 08:46:27 Reading Location: [facility] Radiology Reading Room BLOOD GAS, [id number] 05:41:00 Test Item Value Reference Range Interpretation [...] (BEAKER) (test code = 1819) 40 CALCIUM, [id number] 04:35:00 Test Item Value Reference Range Interpretation Comments CALCIUM IONIZED (BEAKER) (test 1.13 mmol/L 1.12-1.27 code = 698) PH, BLOOD (BEAKER) (test code = 7.32 1810) BLOOD GAS, [id number] 04:28:00 Test Item Value Reference Range Interpretation [...] (BEAKER) (test code = 1819) 40.0 % [id number] 04:20:00 Test Item Value Reference Range Interpretation Comments PHOSPHORUS (BEAKER) (test code = 6.2 mg/dL 2.3-4.7 H 604) [id number] 04:20:00 Test Item Value Reference Range Interpretation Comments MAGNESIUM (BEAKER) (test code = 2.4 mg/dL 1.6-2.6 627) HEPATIC FUNCTION [id number] 04:20:00 Test Item Value Reference Range Interpretation [...] = 11 U/L 6-55 347) BASIC METABOLIC [id number] 04:20:00 Test Item Value Reference Range Interpretation [...] APPLICABLE FOR DIALYSIS PATIEN TS. OXYGEN SATURATION, [id number] 04:18:00 Test Item Value Reference Range Interpretation Comments O2 SATURATION (MEASURED) (BEAKER) 68.0 % (test code = 1455) LACTIC ACID, ARTERIAL, WHOLE [id number] 04:12:00 Test Item Value Reference Range Interpretation Comments LACTATE BLOOD ARTERIAL (2) 1.0 mmol/L 0.5-2.2 (BEAKER) (test code = 2874) Effective 08/02/2015: Units/Reference Range ChangeNew: 0.5-2.2 mmol/L Previous: 5-20 mg/dLCBC W/PLT COUNT & AUTO [id number] 04:00:00 Test Item Value Reference Range Interpretation [...] (BEAKER) (test code = 2801) BLOOD GAS, [id number] 00:06:00 Test Item Value Reference Range Interpretation [...] (BEAKER) (test code = 1819) 40.0 % [id number] 18:55:00 Test Item Value Reference Range Interpretation Comments PHOSPHORUS (BEAKER) (test code = 4.8 mg/dL 2.3-4.7 H 604) [id number] 18:55:00 Test Item Value Reference Range Interpretation Comments MAGNESIUM (BEAKER) (test code = 2.3 mg/dL 1.6-2.6 627) BASIC METABOLIC [id number] 18:55:00 Test Item Value Reference Range Interpretation [...] DIALYSIS PATIEN TS. LACTIC ACID, ARTERIAL, WHOLE [id number] 18:53:00 Test Item Value Reference Range Interpretation Comments LACTATE BLOOD 0.9 mmol/L 0.5-2.2 Specimen sligh tly ARTERIAL (2) (BEAKER) hemoly zed (test code = 2874) Effective 08/02/2015: Units/Reference Range ChangeNew: 0.5-2.2 mmol/L Previous: 5-20 mg/dLRAD, CHEST, 1 VIEW, NON [id number] 18:44:00Reason for exam:- >postop cardiacShould this be [...] excluded. Signed: Lisa Li MDReport Verified Date/Time: 05/20/2017 18:44:30 Reading Location: [address] Consult Reading Room Electronically signed by: LISA LI M.D. on05/20/2017 06:44 PMCBC W/PLT COUNT & AUTO [id number] 18:38:00 Test Item Value Reference Range Interpretation [...] (BEAKER) (test code = 2801) OXYGEN SATURATION, [id number] 18:36:00 Test Item Value Reference Range Interpretation Comments O2 SATURATION (MEASURED) (BEAKER) 72.5 % (test code = 1455) From distal port of IJ central venous catheterSODIUM NA-STAT [id number] 18:30:00 Test Item Value Reference Range Interpretation Comments SODIUM (BEAKER) (test code = 381) 132 meq/L 135-148 L HGB/HCT (H&H) - STAT [id number] 18:30:00 Test Item Value Reference Range Interpretation Comments HEMOGLOBIN (BEAKER) (test code = 9.4 g/dL 12.0-15.0 L 410) HEMATOCRIT (BEAKER) (test code = 28.0 % 36.0-45.0 L 411) GLUCOSE-STAT [id number] 18:30:00 Test Item Value Reference Range Interpretation Comments GLUCOSE RANDOM (BEAKER) (test code 159 mg/dL 70-110 H = 652) BLOOD GAS, [id number] 18:30:00 Test Item Value Reference Range Interpretation [...] (test code = 1819) 60.0 % CALCIUM, [id number] 18:30:00 Test Item Value Reference Range Interpretation Comments CALCIUM IONIZED (BEAKER) (test 0.94 mmol/L 1.12-1.27 L code = 698) PH, BLOOD (BEAKER) (test code = 7.34 1810) POTASSIUM-STAT [id number] 18:28:00 Test Item Value Reference Range Interpretation [...] (test 0.0 % 0.0-5.0 code = 1414) [id number] 17:53:00 Test Item Value Reference Range Interpretation Comments ACTIVATED CLOTTING TIME 103 sec TEST ED AT [place] [address] ([facility]) (test code = JULIANO R[place] [facility]) [address] [id number] 17:53:00 Test Item Value Reference Range Interpretation Comments ACTIVATED CLOTTING TIME 466 sec TEST ED AT [place] [address] ([facility]) (test code = JULIANO [place] [facility]) [address] [id number] 17:53:00 Test Item Value Reference Range Interpretation Comments ACTIVATED CLOTTING TIME 543 sec TEST ED AT [place] [address] ([facility]) (test code = JULIANO [place] [facility]) [address] [id number] 17:53:00 Test Item Value Reference Range Interpretation Comments ACTIVATED CLOTTING TIME 549 sec TEST ED AT [place] [address] ([facility]) (test code = J[place]IANO [place] 441) [address] [id number] 17:53:00 Test Item Value Reference Range Interpretation Comments ACTIVATED CLOTTING TIME 632 sec TEST ED AT [place] [address] ([facility]) (test code = JULIANO Osborne [place] 441) [address] [id number] 17:53:00 Test Item Value Reference Range Interpretation Comments ACTIVATED CLOTTING TIME 494 sec TEST ED AT [place] [address] ([facility]) (test code = JULIANO Osborne [place] 441) [address] [id number] 17:53:00 Test Item Value Reference Range Interpretation Comments ACTIVATED CLOTTING TIME 587 sec TEST ED AT [place] [address] ([facility]) (test code = JULIANO Osborne [place] 441) [address] [id number] 17:53:00 Test Item Value Reference Range Interpretation Comments ACTIVATED CLOTTING TIME 626 sec TEST ED AT [place] [address] ([facility]) (test code = JULIANO Osborne [facility] 441) [address] [id number] 17:52:00 Test Item Value Reference Range Interpretation Comments ACTIVATED CLOTTING TIME 808 sec TEST ED AT [place] [address] ([facility]) (test code = JULIANO Osborne [place] [address]) [address] [id number] 16:54:00 Test Item Value Reference Range Interpretation Comments PARTIAL THROMBOPLASTIN TIME 40.2 seconds 22.5-36.0 H ([facility]) (test code = 760) [id number] 16:53:00 Test Item Value Reference Range Interpretation Comments FIBRINOGEN LEVEL ([facility]) (test 306 mg/dl 225-434 code = 658) PROTHROMBIN [id number] 16:50:00 Test Item Value Reference Range Interpretation Comments PROTIME (AKER) (test code = 19.6 seconds 11.7-14.7 H 759) INR ([facility]) (test code = 370) 1.7 <=5.9 RECOMMENDED COUMADIN/WARFARIN INR THERAPY RANGESSTANDARD DOSE: 2.0 - 3.0 Includes: PROPHYLAXIS forvenous thrombosis, systemic embolization; TREATMENT for venous thrombosis and/or pulmonary embolus.HIGH RISK: Target INR is 2.5-3.5 for patients with mechanical heart valves.PLATELET [id number] 16:45:00 Test Item Value Reference Range Interpretation Comments PLATELET COUNT ([facility]) (test 136 K/CU MM 150-450 L code = 756) POTASSIUM-STAT [id number] 16:15:00 Test Item Value Reference Range Interpretation Comments POTASSIUM (BEAKER) (test code = 4.9 meq/L 3.6-5.5 379) BLOOD GAS, [id number] 16:15:00 Test Item Value Reference Range Interpretation [...] code = 1819) 100.0 % SODIUM NA-STAT [id number] 16:15:00 Test Item Value Reference Range Interpretation Comments SODIUM (BEAKER) (test code = 381) 131 meq/L 135-148 L GLUCOSE-STAT [id number] 16:15:00 Test Item Value Reference Range Interpretation Comments GLUCOSE RANDOM (BEAKER) (test code 198 mg/dL 70-110 H = 652) HGB/HCT (H&H) - STAT [id number] 16:15:00 Test Item Value Reference Range Interpretation Comments HEMOGLOBIN (BEAKER) (test code = 7.5 g/dL 12.0-15.0 L 410) HEMATOCRIT (BEAKER) (test code = 22.0 % 36.0-45.0 L 411) CALCIUM, [id number] 16:14:00 Test Item Value Reference Range Interpretation Comments CALCIUM IONIZED (BEAKER) (test 0.91 mmol/L 1.12-1.27 L code = 698) PH, BLOOD (BEAKER) (test code = 7.39 1810) BLOOD GAS, [id number] 15:39:00 Test Item Value Reference Range Interpretation [...] code = 1819) 70.0 % SODIUM NA-STAT [id number] 15:39:00 Test Item Value Reference Range Interpretation Comments SODIUM (BEAKER) (test code = 381) 131 meq/L 135-148 L GLUCOSE-STAT [id number] 15:39:00 Test Item Value Reference Range Interpretation Comments GLUCOSE RANDOM (BEAKER) (test code 186 mg/dL 70-110 H = 652) HGB/HCT (H&H) - STAT [id number] 15:39:00 Test Item Value Reference Range Interpretation Comments HEMOGLOBIN (BEAKER) (test code = 7.5 g/dL 12.0-15.0 L 410) HEMATOCRIT (BEAKER) (test code = 22.0 % 36.0-45.0 L 411) POTASSIUM-STAT [id number] 15:38:00 Test Item Value Reference Range Interpretation Comments POTASSIUM (BEAKER) (test code = 5.3 meq/L 3.6-5.5 379) BLOOD GAS, [id number] 15:24:00 Test Item Value Reference Range Interpretation [...] code = 1819) 70.0 % SODIUM NA-STAT [id number] 15:24:00 Test Item Value Reference Range Interpretation Comments SODIUM (BEAKER) (test code = 381) 130 meq/L 135-148 L GLUCOSE-STAT [id number] 15:24:00 Test Item Value Reference Range Interpretation Comments GLUCOSE RANDOM (BEAKER) (test code 189 mg/dL 70-110 H = 652) HGB/HCT (H&H) - STAT [id number] 15:24:00 Test Item Value Reference Range Interpretation Comments HEMOGLOBIN (BEAKER) (test code = 6.7 g/dL 12.0-15.0 L 410) HEMATOCRIT (BEAKER) (test code = 20.0 % 36.0-45.0 L 411) POTASSIUM-STAT [id number] 15:23:00 Test Item Value Reference Range Interpretation Comments POTASSIUM (BEAKER) (test code = 5.4 meq/L 3.6-5.5 379) BLOOD GAS, [id number] 15:07:00 Test Item Value Reference Range Interpretation [...] code = 1819) 70.0 % SODIUM NA-STAT [id number] 15:07:00 Test Item Value Reference Range Interpretation Comments SODIUM (BEAKER) (test code = 381) 129 meq/L 135-148 L GLUCOSE-STAT [id number] 15:07:00 Test Item Value Reference Range Interpretation Comments GLUCOSE RANDOM (BEAKER) (test code 172 mg/dL 70-110 H = 652) HGB/HCT (H&H) - STAT [id number] 15:07:00 Test Item Value Reference Range Interpretation Comments HEMOGLOBIN (BEAKER) (test code = 7.1 g/dL 12.0-15.0 L 410) HEMATOCRIT (BEAKER) (test code = 21.0 % 36.0-45.0 L 411) POTASSIUM-STAT [id number] 15:04:00 Test Item Value Reference Range Interpretation Comments POTASSIUM (BEAKER) (test code = 5.0 meq/L 3.6-5.5 379) BLOOD GAS, [id number] 14:21:00 Test Item Value Reference Range Interpretation [...] code = 1819) 70.0 % SODIUM NA-STAT [id number] 14:21:00 Test Item Value Reference Range Interpretation Comments SODIUM (BEAKER) (test code = 381) 133 meq/L 135-148 L GLUCOSE-STAT [id number] 14:21:00 Test Item Value Reference Range Interpretation Comments GLUCOSE RANDOM (BEAKER) (test code 160 mg/dL 70-110 H = 652) HGB/HCT (H&H) - STAT [id number] 14:21:00 Test Item Value Reference Range Interpretation Comments HEMOGLOBIN (BEAKER) (test code = 7.5 g/dL 12.0-15.0 L 410) HEMATOCRIT (BEAKER) (test code = 22.0 % 36.0-45.0 L 411) POTASSIUM-STAT [id number] 14:20:00 Test Item Value Reference Range Interpretation Comments POTASSIUM (BEAKER) (test code = 4.7 meq/L 3.6-5.5 379) BLOOD GAS, [id number] 13:58:00 Test Item Value Reference Range Interpretation [...] code = 1819) 80.0 % SODIUM NA-STAT [id number] 13:58:00 Test Item Value Reference Range Interpretation Comments SODIUM (BEAKER) (test code = 381) 132 meq/L 135-148 L GLUCOSE-STAT [id number] 13:58:00 Test Item Value Reference Range Interpretation Comments GLUCOSE RANDOM (BEAKER) (test code 166 mg/dL 70-110 H = 652) HGB/HCT (H&H) - STAT [id number] 13:58:00 Test Item Value Reference Range Interpretation Comments HEMOGLOBIN (BEAKER) (test code = 7.5 g/dL 12.0-15.0 L 410) HEMATOCRIT (BEAKER) (test code = 22.0 % 36.0-45.0 L 411) POTASSIUM-STAT [id number] 13:57:00 Test Item Value Reference Range Interpretation Comments POTASSIUM (BEAKER) (test code = 4.7 meq/L 3.6-5.5 379) BLOOD GAS, [id number] 13:35:00 Test Item Value Reference Range Interpretation [...] (test code = 1819) 80.0 % GLUCOSE-STAT [id number] 13:35:00 Test Item Value Reference Range Interpretation Comments GLUCOSE RANDOM (BEAKER) (test code 130 mg/dL 70-110 H = 652) HGB/HCT (H&H) - STAT [id number] 13:35:00 Test Item Value Reference Range Interpretation Comments HEMOGLOBIN (BEAKER) (test code = 6.7 g/dL 12.0-15.0 L 410) HEMATOCRIT (BEAKER) (test code = 20.0 % 36.0-45.0 L 411) SODIUM NA-STAT [id number] 13:35:00 Test Item Value Reference Range Interpretation Comments SODIUM (BEAKER) (test code = 381) 133 meq/L 135-148 L POTASSIUM-STAT [id number] 13:34:00 Test Item Value Reference Range Interpretation Comments POTASSIUM (BEAKER) (test code = 4.2 meq/L 3.6-5.5 379) BLOOD GAS, [id number] 13:16:00 Test Item Value Reference Range Interpretation [...] code = 1819) 80.0 % SODIUM NA-STAT [id number] 13:16:00 Test Item Value Reference Range Interpretation Comments SODIUM (BEAKER) (test code = 381) 133 meq/L 135-148 L HGB/HCT (H&H) - STAT [id number] 13:16:00 Test Item Value Reference Range Interpretation Comments HEMOGLOBIN (BEAKER) (test code = 6.3 g/dL 12.0-15.0 L 410) HEMATOCRIT (BEAKER) (test code = 19.0 % 36.0-45.0 L 411) CALCIUM, [id number] 13:15:00 Test Item Value Reference Range Interpretation Comments CALCIUM IONIZED (BEAKER) (test 0.98 mmol/L 1.12-1.27 L code = 698) PH, BLOOD (BEAKER) (test code = 7.34 1810) BLOOD GAS, [id number] 13:15:00 Test Item Value Reference Range Interpretation [...] (test code = 1819) 80.0 % GLUCOSE-STAT [id number] 13:14:00 Test Item Value Reference Range Interpretation Comments GLUCOSE RANDOM (BEAKER) (test code = 92 mg/dL 70-110 652) POTASSIUM-STAT [id number] 13:14:00 Test Item Value Reference Range Interpretation Comments POTASSIUM (BEAKER) (test code = 3.9 meq/L 3.6-5.5 379) BLOOD GAS, [id number] 10:54:00 Test Item Value Reference Range Interpretation [...] 1819) 100.0 % HGB/HCT (H&H) - STAT [id number] 10:54:00 Test Item Value Reference Range Interpretation Comments HEMOGLOBIN (BEAKER) (test code = 9.3 g/dL 12.0-15.0 L 410) HEMATOCRIT (BEAKER) (test code = 27.0 % 36.0-45.0 L 411) SODIUM NA-STAT [id number] 10:54:00 Test Item Value Reference Range Interpretation Comments SODIUM (BEAKER) (test code = 381) 132 meq/L 135-148 L GLUCOSE-STAT [id number] 10:52:00 Test Item Value Reference Range Interpretation Comments GLUCOSE RANDOM (BEAKER) (test code = 94 mg/dL 70-110 652) POTASSIUM-STAT [id number] 10:52:00 Test Item Value Reference Range Interpretation Comments POTASSIUM (BEAKER) (test code = 4.0 meq/L 3.6-5.5 379) HEMOGLOBIN [id number] 09:50:00 Test Item Value Reference Range Interpretation Comments HEMOGLOBIN A1C (BEAKER) (test code = 10.6 % 4.3-6.1 H 368) PLATELET AGGREGATION: FUNCTION [id number] 08:27:00 Test Item Value Reference Range Interpretation Comments WEAK ADP 63 % 60-91 RESULT(BEAKER) (test code = 2135) PLATELET FUNCTION 60-100% indicates SCREEN INTERP (BEAKER) normal platelet (test code = 2173) function [id number] Toshia Post MD (BEAKER) (test code = (electronic signature) 7313) PLATELET COUNT AGG 198 K/CU MM 150-450 (BEAKER) (test code = 0930) for patients on clopidogrel in past two weeksPOCT-GLUCOSE [id number] 08:11:00 Test Item Value Reference Range Interpretation Comments POC-GLUCOSE METER 116 mg/dL 70-110 H TESTED AT [facility] 6720 (BEAKER) (test code = [place]IANO [place] 1538) [address] [id number] 07:10:00 Test Item Value Reference Range Interpretation Comments PHOSPHORUS (BEAKER) (test code = 4.5 mg/dL 2.3-4.7 604) [id number] 07:10:00 Test Item Value Reference Range Interpretation Comments MAGNESIUM (BEAKER) (test code = 2.1 mg/dL 1.6-2.6 627) BASIC METABOLIC [id number] 07:10:00 Test Item Value Reference Range Interpretation [...] = 700) CBC W/PLT COUNT & AUTO [id number] 06:46:00 Test Item Value Reference Range Interpretation [...] PERCENT (BEAKER) (test code = 2801) CALCIUM, [id number] 06:40:00 Test Item Value Reference Range Interpretation Comments CALCIUM IONIZED (BEAKER) (test 1.06 mmol/L 1.12-1.27 L code = 698) PH, BLOOD (BEAKER) (test code = 7.39 1810) POCT-GLUCOSE [id number] 23:22:00 Test Item Value Reference Range Interpretation Comments POC-GLUCOSE METER 165 mg/dL 70-110 H TESTED AT [facility] 6720 (BEAKER) (test code = [place]IASAMANDA [place] 1538) [id number] URINE PROTEIN ELECTROPHORESIS, [id number] 18:02:00 Test Item Value Reference Range Interpretation Comments PROTEIN, URINE 305 mg/dL 0-14 H (BEAKER) (test code = 1569) ALBUMIN URINE ELP 70.9 % (BEAKER) (test code = 1018) GAMMA GLOBULIN URINE 29.1 % (BEAKER) (test code = 1015) UPEP, [id number] (BEAKER) No monoclonal bands (test code = 2604) detected. [id number] Rocio Galindo MD ([facility]) (test code = (electronic signature) 2604) PROTEIN ELECTROPHORESIS, [id number] 17:57:00 Test Item Value Reference Range Interpretation [...] all globulin fractions. No monoclonal bands detected. [id number] Rocio Galindo MD ([facility]) (test code = (electronic signature) 2616) PROTEIN TOTAL SERUM, 5.5 gm/dL 6.0-8.3 L SPEP (BEAKER) (test code = 2660) POCT-GLUCOSE [id number] 17:15:00 Test Item Value Reference Range Interpretation Comments POC-GLUCOSE METER 209 mg/dL 70-110 H TESTED AT [facility] 6720 (BEAKER) (test code = [place] 1538) [address] BLOOD GAS, [id number] 15:54:00 Test Item Value Reference Range Interpretation [...] 36.0 % RAD, CHEST, 1 VIEW, NON [id number] 14:07:00Reason for exam:->SOB, hypoxemiaShould this be performed [...] Eder Cespedes Verified Date/Time: 05/19/2017 14:07:07 Reading Location:[facility] [id number] Consult Reading Room POCT-GLUCOSE [id number] 11:26:00 Test Item Value Reference Range Interpretation Comments POC-GLUCOSE METER 262 mg/dL 70-110 H TESTED AT [facility] 6720 (BEAKER) (test code = JULIANO Osborne [place] 1538) [address] POCT-GLUCOSE [id number] 07:37:00 Test Item Value Reference Range Interpretation Comments POC-GLUCOSE METER 170 mg/dL 70-110 H TESTED AT [facility] 6720 (BEAKER) (test code = JULIANO Osborne [place] 1538) [address] CALCIUM, [id number] 06:06:00 Test Item Value Reference Range Interpretation Comments CALCIUM IONIZED (BEAKER) (test 1.05 mmol/L 1.12-1.27 L code = 698) PH, BLOOD (BEAKER) (test code = 7.41 1810) [id number] 05:38:00 Test Item Value Reference Range Interpretation Comments PHOSPHORUS (BEAKER) (test code = 3.9 mg/dL 2.3-4.7 604) [id number] 05:38:00 Test Item Value Reference Range Interpretation Comments MAGNESIUM (BEAKER) (test code = 2.2 mg/dL 1.6-2.6 627) BASIC METABOLIC [id number] 05:38:00 Test Item Value Reference Range Interpretation [...] PATIEN TS. CBC W/PLT COUNT & AUTO [id number] 05:09:00 Test Item Value Reference Range Interpretation [...] PERCENT (BEAKER) (test code = 2801) POCT-GLUCOSE [id number] 22:08:00 Test Item Value Reference Range Interpretation Comments POC-GLUCOSE METER 263 mg/dL 70-110 H TESTED AT [place] [address] (BEAKER) (test code = JULIANO Osborne [facility] 1538) [address] POCT-GLUCOSE [id number] 17:20:00 Test Item Value Reference Range Interpretation Comments POC-GLUCOSE METER 233 mg/dL 70-110 H TESTED AT [place] [address] (BEAKER) (test code = [facility] Dylon [facility] 1538) [address] POCT-GLUCOSE [id number] 08:28:00 Test Item Value Reference Range Interpretation Comments POC-GLUCOSE METER 154 mg/dL 70-110 H TESTED AT [place] [address] (BEAKER) (test code = [facility] Dylon [facility] 1538) [address] BASIC METABOLIC [id number] 06:41:00 Test Item Value Reference Range Interpretation [...] S NOT APPLICABLE FOR DIALYSIS PATIEN TS. [id number] 06:35:00 Test Item Value Reference Range Interpretation Comments PHOSPHORUS (BEAKER) (test code = 4.1 mg/dL 2.3-4.7 604) [id number] 06:35:00 Test Item Value Reference Range Interpretation Comments MAGNESIUM (BEAKER) (test code = 2.1 mg/dL 1.6-2.6 627) CALCIUM, [id number] 06:22:00 Test Item Value Reference Range Interpretation Comments CALCIUM IONIZED (BEAKER) (test 1.10 mmol/L 1.12-1.27 L code = 698) PH, BLOOD (BEAKER) (test code = 7.38 1810) CBC W/PLT COUNT & AUTO [id number] 06:04:00 Test Item Value Reference Range Interpretation [...] ABSOLUTE COUNT 6.15 K/ L 1.56-6.13 H ([facility]) (test code = 670) LYMPHOCYTES ABSOLUTE COUNT 2.20 K/ L 1.18-3.74 ([facility]) (test code = 414) MONOCYTES ABSOLUTE COUNT (AKER) 0.62 K/ L 0.24-0.36 H (test code = 415) EOSINOPHILS ABSOLUTE COUNT 0.24 K/ L 0.04-0.36 ([facility]) (test code = 416) BASOPHILS ABSOLUTE COUNT (AKER) 0.06 K/ L 0.01-0.08 (test code = 417) IMMATURE GRANULOCYTES-RELATIVE 0 % 0-1 PERCENT ([facility]) (test code = 2801) POCT-GLUCOSE [id number] 03:44:00 Test Item Value Reference Range Interpretation Comments POC-GLUCOSE METER 220 mg/dL 70-110 H TESTED AT [place] [address] ([facility]) (test code = [facility] 1538) [address] POCT-GLUCOSE [id number] 18:27:00 Test Item Value Reference Range Interpretation Comments POC-GLUCOSE METER 256 mg/dL 70-110 H TESTED AT [place] [address] ([facility]) (test code = [facility] 1538) [address] POCT-GLUCOSE [id number] 15:45:00 Test Item Value Reference Range Interpretation Comments POC-GLUCOSE METER 278 mg/dL 70-110 H TESTED AT [place] [address] ([facility]) (test code = [facility] 1538) [address] POCT-GLUCOSE [id number] 13:22:00 Test Item Value Reference Range Interpretation Comments POC-GLUCOSE METER 278 mg/dL 70-110 H TESTED AT [place] [address] ([facility]) (test code = [facility] 1538) [address] PLATELET AGGREGATION: FUNCTION [id number] 13:18:00 Test Item Value Reference Range Interpretation Comments WEAK ADP 66 % 60-91 RESULT([facility]) (test code = 2135) PLATELET FUNCTION 60-100% indicates SCREEN INTERP ([facility]) normal platelet (test code = 2173) function [id number] Rigoberto Duenas MD ([facility]) (test code = (electronic signature) 5840) PLATELET COUNT AGG 204 K/CU MM 150-450 ([facility]) (test code = 2656) POCT-GLUCOSE [id number] 08:27:00 Test Item Value Reference Range Interpretation Comments POC-GLUCOSE METER 189 mg/dL 70-110 H TESTED AT [facility] 6720 (BEAKER) (test code = JULIANO [place] 1538) [address] CALCIUM, [id number] 06:12:00 Test Item Value Reference Range Interpretation Comments CALCIUM IONIZED (BEAKER) (test 1.07 mmol/L 1.12-1.27 L code = 698) PH, BLOOD (BEAKER) (test code = 7.36 1810) [id number] 05:43:00 Test Item Value Reference Range Interpretation Comments PHOSPHORUS (BEAKER) (test code = 3.6 mg/dL 2.3-4.7 604) [id number] 05:43:00 Test Item Value Reference Range Interpretation Comments MAGNESIUM (BEAKER) (test code = 2.1 mg/dL 1.6-2.6 627) BASIC METABOLIC [id number] 05:43:00 Test Item Value Reference Range Interpretation [...] PATIEN TS. CBC W/PLT COUNT & AUTO [id number] 05:05:00 Test Item Value Reference Range Interpretation [...] % 0-1 PERCENT (BEAKER) (test code = 5771) POCT-GLUCOSE [id number] 21:32:00 Test Item Value Reference Range Interpretation Comments POC-GLUCOSE METER 176 mg/dL 70-110 H TESTED AT [place] [address] ([facility]) (test code = JULIANO Osborne [facility] 1538) [address] POCT-GLUCOSE [id number] 20:27:00 Test Item Value Reference Range Interpretation Comments POC-GLUCOSE METER 161 mg/dL 70-110 H TESTED AT [place] [address] ([facility]) (test code = [facility] Dylon [facility] 1538) [address] POCT-GLUCOSE [id number] 18:23:00 Test Item Value Reference Range Interpretation Comments POC-GLUCOSE METER 185 mg/dL 70-110 H TESTED AT [place] [address] ([facility]) (test code = [facility] 1538) [address] POCT-GLUCOSE [id number] 13:26:00 Test Item Value Reference Range Interpretation Comments POC-GLUCOSE METER 282 mg/dL 70-110 H TESTED AT [place] [address] ([facility]) (test code = [facility] 1538) [address] URINE [id number] 10:12:00 Test Item Value Reference Range Interpretation Comments CULTURE ([facility]) (test >100,000 col/mL skin code = 1095) todd POCT-GLUCOSE [id number] 09:01:00 Test Item Value Reference Range Interpretation Comments POC-GLUCOSE METER 268 mg/dL 70-110 H TESTED AT [place] [address] ([facility]) (test code = [facility] 1538) [address] CALCIUM, [id number] 05:39:00 Test Item Value Reference Range Interpretation Comments CALCIUM IONIZED (BEAKER) (test 0.84 mmol/L 1.12-1.27 L code = 698) PH, BLOOD (BEAKER) (test code = 7.35 1450) BASIC METABOLIC [id number] 05:07:00 Test Item Value Reference Range Interpretation [...] S NOT APPLICABLE FOR DIALYSIS PATIEN TS. [id number] 05:06:00 Test Item Value Reference Range Interpretation Comments PHOSPHORUS (BEAKER) (test code = 3.2 mg/dL 2.3-4.7 604) [id number] 05:06:00 Test Item Value Reference Range Interpretation Comments MAGNESIUM (BEAKER) (test code = 2.3 mg/dL 1.6-2.6 627) CBC W/PLT COUNT & AUTO [id number] 04:42:00 Test Item Value Reference Range Interpretation [...] = 2801) RHEUMATOID FACTOR AB, REFLEX TO [id number] 01:52:00 Test Item Value Reference Range Interpretation Comments RHEUMATOID FACTOR ([facility]) (test Negative code = 573) POCT-GLUCOSE [id number] 21:57:00 Test Item Value Reference Range Interpretation Comments POC-GLUCOSE METER 105 mg/dL 70-110 TESTED AT [facility] 67 ([facility]) (test code = JULIANO Osborne [place] [address]) [address] POCT-GLUCOSE [id number] 18:11:00 Test Item Value Reference Range Interpretation Comments POC-GLUCOSE METER 312 mg/dL 70-110 H Notified Dylon Hassan MD/TESTED ([facility]) (test code = AT [facility] [address] [place] [address]) [facility] 7703 0 PET, CARDIAC PERFUSION MULTIPLE STUDIES, REST AND [id number] 16:28:00 Reason for exam:->pvcs, known cadFINAL REPORT PROCEDURE: Rest/Stress MYOCARDIAL PERFUSION PET with regadenoson\XA9\ CPT CODE: 50745 INDICATION: Defined extent and severity of known [...] is 23%. LVEF at stress is 36%. [employer] Operator CT images revealed a right pleural effusion [...] Lopez Verified Date/Time: 05/15/2017 16:28:12 Reading Location: [address] ReadingRoom RAD, CHEST, 1 VIEW, NON [id number] 15:56:00Reason for exam:->SOBShould this be performed at the bedside?->YesFINAL REPORT Comparison: 05/14/2017 TECHNIQUE: Single view of the chest FINDINGS: There is a small right pleural effusion with nonspecific airspace disease. This is unchanged. Left lung is grossly clear. Cardiac silhouette is enlarged. IMPRESSION: 1. No acute cardiopulmonary disease. Signed: Sixto Monk MDReport Verified Date/Time: 05/15/2017 15:56:39 [facility] POCT-GLUCOSE [id number] 12:54:00 Test Item Value Reference Range Interpretation Comments POC-GLUCOSE METER 308 mg/dL 70-110 H Notified Dylon Hassan MD/NATHAN (ROBERT) (test code = AT [facility] 6720 [place] [address]) [facility] 7703 0 U/S, RENAL WITH [id number] 11:04:00Reason for exam:->arturo, htnShould this be performed at the bedside?->YesFINAL [...] Hobbs Verified Date/Time: 05/15/2017 11:04:01 Reading Location: [address] Ultrasound Reading Room ANA TITER AND [id number] 10:57:00 Test Item Value Reference Range Interpretation Comments ROGER TITER (BEAKER) (test code = :160 1541) ROGER PATTERN (BEAKER) (test code = Speckled 1781) ANTI-NUCLEAR ANTIBODY (ROGER)2017-05-15 10:56:00 Test Item Value Reference Range Interpretation Comments ANTI-NUCLEAR ANTIBODY (ROGER) (BEAKER) Positive Negative A (test code = 418) CALCIUM, [id number] 06:00:00 Test Item Value Reference Range Interpretation Comments CALCIUM IONIZED (BEAKER) (test 1.07 mmol/L 1.12-1.27 L code = 698) PH, BLOOD (BEAKER) (test code = 7.28 1810) HEPATITIS PANEL, [id number] 05:01:00 Test Item Value Reference Range Interpretation Comments HEPATITIS A IGM ANTIBODY (BEAKER) Nonreactive Nonreactive (test code = 498) HEPATITIS B CORE IGM ANTIBODY Nonreactive Nonreactive (BEAKER) (test code = 645) HEPATITIS C ANTIBODY (BEAKER) Nonreactive Nonreactive (test code = 367) HEPATITIS B SURFACE ANTIGEN (2) Nonreactive Nonreactive (BEAKER) (test code = 2585) BASIC METABOLIC [id number] 04:48:00 Test Item Value Reference Range Interpretation [...] NOT APPLICABLE FOR DIALYSIS PATIEN TS. URIC [id number] 04:41:00 Test Item Value Reference Range Interpretation Comments URIC ACID (BEAKER) (test code = 10.3 mg/dL 2.6-7.2 H 773) [id number] 04:41:00 Test Item Value Reference Range Interpretation Comments MAGNESIUM (BEAKER) (test code = 2.0 mg/dL 1.6-2.6 627) [id number] 04:41:00 Test Item Value Reference Range Interpretation Comments PHOSPHORUS (BEAKER) (test code = 4.2 mg/dL 2.3-4.7 604) COMPLEMENT COMPONENT [id number] 04:38:00 Test Item Value Reference Range Interpretation Comments C4 COMPLEMENT (BEAKER) (test code = 28 mg/dL 15-57 394) COMPLEMENT COMPONENT [id number] 04:38:00 Test Item Value Reference Range Interpretation Comments C3 COMPLEMENT (BEAKER) (test code = 103 mg/dL 82-193 393) CBC W/PLT COUNT & AUTO [id number] 04:22:00 Test Item Value Reference Range Interpretation [...] LYMPHOCYTES ABSOLUTE COUNT 3.35 K/ L 1.18-3.74 ([facility]) (test code = 414) MONOCYTES ABSOLUTE COUNT (BEAKER) 0.59 K/ L 0.24-0.36 H (test code = 415) EOSINOPHILS ABSOLUTE COUNT 0.21 K/ L 0.04-0.36 (BEAKER) (test code = 416) BASOPHILS ABSOLUTE COUNT (AKER) 0.06 K/ L 0.01-0.08 (test code = 417) IMMATURE GRANULOCYTES-RELATIVE 0 % 0-1 PERCENT ([facility]) (test code = 2801) POCT-GLUCOSE [id number] 21:46:00 Test Item Value Reference Range Interpretation Comments POC-GLUCOSE METER 173 mg/dL 70-110 H TESTED AT [facility] 67 ([facility]) (test code = [facility] MARYVALEAMANDA Osborne [facility] 1538) [address] POCT-GLUCOSE [id number] 21:46:00 Test Item Value Reference Range Interpretation Comments POC-GLUCOSE METER 154 mg/dL 70-110 H TESTED AT [place] [address] ([facility]) (test code = [facility] Dylon [facility] 1538) [address] POCT-GLUCOSE [id number] 18:17:00 Test Item Value Reference Range Interpretation Comments POC-GLUCOSE METER 175 mg/dL 70-110 H TESTED AT [place] [address] ([facility]) (test code = [facility] Dylon [facility] 1538) [address] RAD, CHEST, 1 VIEW, NON [id number] 14:56:00Reason for exam:->SOBShould this be performed at the bedside?->YesFINAL REPORT INDICATION: SOB COMPARISON: May 13, 2017 TECHNIQUE: Chest radiograph, single view, portable technique. FINDINGS / IMPRESSION: Enlarged heart shadow, small rightpleural effusion, and pulmonary venous congestion, again demonstrated. No pneumothorax or consolidation. Osseous structures unremarkable. Signed: Satnam Jean Verified Date/Time: 05/14/2017 14:56:58 Reading Location: [facility] Mammo Reading Room POCT-GLUCOSE [id number] 12:18:00 Test Item Value Reference Range Interpretation Comments POC-GLUCOSE METER 313 mg/dL 70-110 H TESTED AT [facility] 6720 (BEAKER) (test code = JULIANO [place] 1538) [address] HIV-1 ANTIGEN WITH HIV-1/2 [id number] 12:07:00 Test Item Value Reference Range Interpretation Comments HIV-1 ANTIGEN WITH HIV 1\T\2 Nonreactive Nonreactive ANTIBODY (2) (BEAKER) (test code = 2586) CALCIUM, [id number] 06:37:00 Test Item Value Reference Range Interpretation Comments CALCIUM IONIZED (BEAKER) (test 1.08 mmol/L 1.12-1.27 L code = 698) PH, BLOOD (BEAKER) (test code = 7.25 1810) BASIC METABOLIC [id number] 06:26:00 Test Item Value Reference Range Interpretation [...] pg/mL 0-100 H (test code = 700) [id number] 06:25:00 Test Item Value Reference Range Interpretation Comments PHOSPHORUS (BEAKER) (test code = 5.7 mg/dL 2.3-4.7 H 604) [id number] 06:25:00 Test Item Value Reference Range Interpretation Comments MAGNESIUM (BEAKER) (test code = 1.5 mg/dL 1.6-2.6 L 627) CBC W/PLT COUNT & AUTO [id number] 06:07:00 Test Item Value Reference Range Interpretation [...] PERCENT (BEAKER) (test code = 2801) POCT-GLUCOSE [id number] 22:38:00 Test Item Value Reference Range Interpretation Comments POC-GLUCOSE METER 262 mg/dL 70-110 H TESTED AT [facility] 6720 (BEAKER) (test code = JULIANO [place] 1538) [address] PROTEIN, RANDOM [id number] 22:18:00 Test Item Value Reference Range Interpretation Comments PROTEIN, URINE (BEAKER) (test code 641 mg/dL 0-14 H = 1569) CREATININE, RANDOM [id number] 22:07:00 Test Item Value Reference Range Interpretation Comments CREATININE URINE (BEAKER) (test 124.9 mg/dL code = 375) Reference Range: No NormalsURINALYSIS W/ [id number] 22:03:00 Test Item Value Reference Range Interpretation [...] 1585) SOURCE(BEAKER) (test code = Urine, Voided 3488) [id number] 19:49:00 Test Item Value Reference Range Interpretation Comments SODIUM (BEAKER) (test 136 meq/L 136-145 code = 381) POTASSIUM (BEAKER) 5.1 meq/L 3.5-5.1 Specimen slightly (test code = 379) hemolyzed CHLORIDE (BEAKER) 104 meq/L 98-107 (test code = 382) CO2 (BEAKER) (test 25 meq/L 22-29 code = 355) Call if K > 5POCT-GLUCOSE [id number] 11:37:00 Test Item Value Reference Range Interpretation Comments POC-GLUCOSE METER 293 mg/dL 70-110 H TESTED AT [place] [address] ([facility]) (test code = [facility] Dylon [facility] 1538) [address] RAD, CHEST, 1 VIEW, NON [id number] 10:22:00Reason for exam:->SOBShould this be performed at the bedside?->YesFINAL REPORT Chest one view Discussion: There is cardiomegaly and interstitial congestion. A small right-sided effusion is noted. No pneumothorax. IMPRESSIONS: Suspected CHF. Signed: Jeannette Nava Verified Date/Time: 05/13/2017 10:22:34 Reading Location: [facility] Radiology Reading Room POCT-GLUCOSE METER 2017-05-13 08:34:00 Test Item Value Reference Range Interpretation Comments POC-GLUCOSE METER 178 mg/dL 70-110 H TESTED AT [place] [address] ([facility]) (test code = JULIANO Osborne [facility] 1538) [address] POCT-GLUCOSE [id number] 06:53:00 Test Item Value Reference Range Interpretation Comments POC-GLUCOSE METER 167 mg/dL 70-110 H TESTED AT [facility] 6720 (BEAKER) (test code = [place]IANO [place] 1538) [address] [id number] 04:48:00 Test Item Value Reference Range Interpretation Comments BLOOD UREA NITROGEN (BEAKER) (test 36 mg/dL 7-21 H code = 354) [id number] 04:48:00 Test Item Value Reference Range Interpretation Comments SODIUM (BEAKER) (test code = 381) 139 meq/L 136-145 POTASSIUM (BEAKER) (test code = 5.2 meq/L 3.5-5.1 H 379) CHLORIDE (BEAKER) (test code = 382) 109 meq/L 98-107 H CO2 (BEAKER) (test code = 355) 23 meq/L 22-29 [id number] 04:48:00 Test Item Value Reference Range Interpretation Comments CREATININE (BEAKER) 1.73 mg/dL 0.57-1.25 H (test code = 358) EGFR (BEAKER) (test 30 mL/min/1.73 ESTIMA HNIA GFR IS code = 1092) sq m [...] WBC 0-0 (BEAKER) (test code = 413) [id number] 23:29:00 Test Item Value Reference Range Interpretation Comments ACTIVATED CLOTTING TIME 136 sec TEST ED AT [place] [address] [facility] (test code = JULIANO Osborne [place] [address]) [address] [id number] 20:13:00 Test Item Value Reference Range Interpretation Comments ACTIVATED CLOTTING TIME 175 sec TEST ED AT [place] [address] ([facility]) (test code = JULIANO Osborne [place] [address]) [address] [id number] 18:36:00 Test Item Value Reference Range Interpretation Comments ACTIVATED CLOTTING TIME 202 sec TEST ED AT [place] [address] ([facility]) (test code = JULIANO Osborne [place] [address]) [address] [id number] 18:03:00 Test Item Value Reference Range Interpretation Comments ACTIVATED CLOTTING TIME 208 sec TEST ED AT [place] [address] ([facility]) (test code = JULIANO Osborne [place] [address]) [address] BASIC METABOLIC [id number] 11:57:00 Test Item Value Reference Range Interpretation [...] NOT APPLICABLE FOR DIALYSIS PATIEN TS. PROTHROMBIN [id number] 11:15:00 Test Item Value Reference Range Interpretation [...] if on CoumadinCBC W/PLT COUNT & AUTO [id number] 11:01:00 Test Item Value Reference Range Interpretation [...] PERCENT (BEAKER) (test code = 2801) POCT-GLUCOSE [id number] 12:35:00 Test Item Value Reference Range Interpretation Comments POC-GLUCOSE METER 249 mg/dL 70-110 H TESTED AT [place] [address] [facility] (test code = [facility] Dylon [facility] 1538) [address] POCT-GLUCOSE [id number] 09:10:00 Test Item Value Reference Range Interpretation Comments POC-GLUCOSE METER 155 mg/dL 70-110 H TESTED AT [place] [address] ([facility]) (test code = [facility] 1538) [address] BASIC METABOLIC [id number] 05:39:00 Test Item Value Reference Range Interpretation [...] S NOT APPLICABLE FOR DIALYSIS PATIEN TS. [id number] 05:27:00 Test Item Value Reference Range Interpretation Comments PHOSPHORUS ([facility]) (test code = 5.0 mg/dL 2.3-4.7 H 604) [id number] 05:27:00 Test Item Value Reference Range Interpretation Comments MAGNESIUM (BEAKER) (test code = 1.6 mg/dL 1.6-2.6 627) POCT-GLUCOSE [id number] 05:25:00 Test Item Value Reference Range Interpretation Comments POC-GLUCOSE METER 144 mg/dL 70-110 H TESTED AT [place] [address] ([facility]) (test code = [facility] 1538) [address] PROTHROMBIN [id number] 04:58:00 Test Item Value Reference Range Interpretation Comments PROTIME ([facility]) (test code = 14.2 seconds 11.7-14.7 759) INR ([facility]) (test code = 370) 1.1 <=5.9 RECOMMENDED COUMADIN/WARFARIN INR THERAPY RANGESSTANDARD DOSE: 2.0 - 3.0 Includes: PROPHYLAXIS forvenous thrombosis, systemic embolization; TREATMENT for venous thrombosis and/or pulmonary embolus.HIGH RISK: Target INR is 2.5-3.5 for patients with mechanical heart valves.POCT-GLUCOSE [id number] 23:55:00 Test Item Value Reference Range Interpretation Comments POC-GLUCOSE METER 86 mg/dL 70-110 TESTED AT [place] [address] ([facility]) (test code = [facility] [address] 1538) B-TYPE NATRIURETIC FACTOR (BNP)2017-04-22 18:13:00 Test Item Value Reference Range Interpretation Comments B-TYPE NATRIURETIC PEPTIDE 1203 pg/mL 0-100 H ([facility]) (test code = 700) POCT-GLUCOSE [id number] 17:36:00 Test Item Value Reference Range Interpretation Comments POC-GLUCOSE METER 259 mg/dL 70-110 H TESTED AT [place] [address] ([facility]) (test code = [facility] 1538) [address] HEMOGLOBIN [id number] 14:24:00 Test Item Value Reference Range Interpretation Comments HEMOGLOBIN A1C (BEAKER) (test code = 10.5 % 4.3-6.1 H 368) POCT-GLUCOSE [id number] 12:34:00 Test Item Value Reference Range Interpretation Comments POC-GLUCOSE METER 207 mg/dL 70-110 H TESTED AT [facility] 67[facility] (BEAKER) (test code = [place] 1538) [id number] 07:53:00 Test Item Value Reference Range Interpretation Comments PHOSPHORUS (BEAKER) (test code = 3.9 mg/dL 2.3-4.7 604) [id number] 07:53:00 Test Item Value Reference Range Interpretation Comments MAGNESIUM (BEAKER) (test code = 1.6 mg/dL 1.6-2.6 627) BASIC METABOLIC [id number] 07:53:00 Test Item Value Reference Range Interpretation [...] NOT APPLICABLE FOR DIALYSIS PATIEN TS. TROPONIN [id number] 07:29:00 Test Item Value Reference Range Interpretation [...] acidosis, acute neurological disease, and persistent tachyarrhythmia.PROTHROMBIN [id number] 07:01:00 Test Item Value Reference Range Interpretation Comments PROTIME ([facility]) (test code = 13.8 seconds 11.7-14.7 759) INR ([facility]) (test code = 370) 1.1 <=5.9 RECOMMENDED COUMADIN/WARFARIN INR THERAPY RANGESSTANDARD DOSE: 2.0 - 3.0 Includes: PROPHYLAXIS forvenous thrombosis, systemic embolization; TREATMENT for venous thrombosis and/or pulmonary embolus.HIGH RISK: Target INR is 2.5-3.5 for patients with mechanical heart valves.POCT-GLUCOSE [id number] 06:28:00 Test Item Value Reference Range Interpretation Comments POC-GLUCOSE METER 198 mg/dL 70-110 H TESTED AT [facility] 67[address] ([facility]) (test code = [place] 1538) [address] CREATINE KINASE (CK), TOTAL AND [id number] 00:49:00 Test Item Value Reference Range Interpretation Comments CREATINE KINASE TOTAL ([facility]) 69 U/L 29-200 (test code = 380) CREATINE KINASE-MB ([facility]) (test 4.3 ng/mL 0.0-6.6 code = 750) CREATINE KINASE-MB INDEX ([facility]) 6.2 % (test code = 395) CK-MB Reference Range:<6.7 Normal6.7-10.0 Borderline>10.0 AbnormalTROPONIN [id number] 00:49:00 Test Item Value Reference Range Interpretation Comments TROPONIN I ([facility]) (test code = 0.05 ng/mL 0.00-0.03 H [...] acidosis, acute neurological disease, and persistent tachyarrhythmia.POCT-GLUCOSE [id number] 20:44:00 Test Item Value Reference Range Interpretation Comments POC-GLUCOSE METER 269 mg/dL 70-110 H TESTED AT [facility] 67 (ROBERT) (test code = [place] 1538) [id number]
--- NOTE | 2019-09-30 23:36 | ER ---
Nurse's Notes [facility] Name: Christy Priest Age: 64 yrs Sex: Female : 1955 Arrival Date: 09/30/2019 Time: 22:26 Bed 4 Private MD: Diagnosis: Encounter for attention to dressings, sutures and drains Presentation: 09/29 22:27 Chief complaint: EMS states: "The pt is reporting that she was discharged from this [facility] facility 2 hours ago after having her left foot operated on. the nurse told her to come back if she continued to bleed through the gauze that was used to dress the foot. the pt reported that the daughter already changed the dressing once, but it is still bleeding through the second dressing. stable blood pressures and heart rates. pt denies walking or using her left leg.". Coronavirus screen: Proceed with normal triage. Ebola Screen: Patient negative for fever greater than or equal to 101.5 degrees Fahrenheit, and additional compatible Ebola Virus Disease symptoms. Initial Sepsis Screen: Does the patient meet any 2 criteria? No. Patient's initial sepsis screen is negative. Does the patient have a suspected source of infection? No. Patient's initial sepsis screen is negative. Risk Assessment: Do you want to hurt yourself or someone else? Patient reports no desire to harm self or others. Onset of symptoms was September 30, 2019. 22:27 Method Of Arrival: EMS: [facility] jd3 22:27 Acuity: DENNY 3 jd3 Historical: - Allergies: 22:34 Augmentin; jd3 22:34 basil; jd3 22:34 Clindamycin; jd3 22:34 Morphine; jd3 22:34 Nitroglycerin; jd3 22:34 Tramadol HCl; jd3 22:34 Trazodone; jd3 22:34 Vancomycin; jd3 22:34 Vicodin; jd3 22:34 hydrocodone; jd3 - Home Meds: 22:34 gabapentin Oral [Active]; Hydralazine Oral [Active]; insulin [Active]; Lasix Oral jd3 [Active]; Plavix Oral [Active]; - PMHx: 22:34 CHF; COPD; Diabetes - IDDM; ESRD; High Cholesterol; Hypertension; triple bypass; jd3 uterine cancer; - PSHx: 22:34 Cholecystectomy; Hysterectomy; leg surgery; BLE stents; left foot; jd3 - Immunization history:: Adult Immunizations up to date. - Social history:: Smoking status: Patient/guardian denies using tobacco, Stopped _ months ago 0.5. Screenin:50 Abuse screen: Denies threats or abuse. Denies injuries from another. Nutritional rv screening: No deficits noted. Tuberculosis screening: No symptoms or risk factors identified. Fall Risk No fall in past 12 months (0 pts). Secondary diagnosis (15 points) impaired mobility, No IV (0 pts). Ambulatory Aid- None/Bed Rest/Nurse Assist (0 pts). Gait- Impaired (20 pts.). Mental Status- Oriented to own ability (0 pts). Total Merlos Fall Scale indicates Low Risk Score (25-44 pts). Fall prevention measures have been instituted. Side Rails Up X 2 Frequent Obs/Assesments occuring As available Patient and Family Educated on Fall Prevention Program and strategies. Assessment: 22:49 General: Appears uncomfortable, Behavior is calm, cooperative. Pain: Complains of pain rv in left foot. Neuro: Level of Consciousness is awake, alert, obeys commands, Oriented to person, place, time, situation. Cardiovascular: Patient's skin is warm and dry. Rhythm is sinus rhythm. Respiratory: Airway is patent Respiratory effort is even, unlabored, Breath sounds are clear bilaterally. Derm: Wound noted left foot Wound is POST DEBRIDEMENT, CONTINUOUS BLEEDING NOTED. 09/30 00:30 Reassessment: BLEEDING STOPPED. UPDATED DAUGHTER THROUGH THE PHONE. rv 00:30 Reassessment: Patient and/or family updated on plan of care and expected duration. Pain rv level reassessed. General: Appears comfortable, Behavior is calm, cooperative. Vital Signs: 09/29 22:30 BP 162 / 74; Pulse 63; Resp 19 S; Temp 98.3(TE); Pulse Ox 96% on R/A; Weight 88.9 kg jd3 (R); Height 5 ft. 7 in. (170.18 cm) (R); Pain 8/10; 23:56 BP 171 / 90; Pulse 65; Resp 18; Temp 98.5(O); Pulse Ox 96% on R/A; rv 22:30 Body Mass Index 30.70 (88.90 kg, 170.18 cm) [facility] ED Course: 22:26 Patient arrived in ED. jd3 22:30 Triage completed. jd3 22:31 Arm band placed on. jd3 22:39 Addi Ramachandran, RN is Primary Nurse. rv 22:47 Kami Cota F[facility]-C [facility]. snw 22:47 Rc Moreno MD is Attending Physician. snw 22:50 Patient has correct armband on for positive identification. Bed in low position. Call rv light in reach. Side rails up X 1. Pulse ox on. NIBP on. 09/30 00:02 No provider procedures requiring assistance completed. Patient did not have IV access rv during this emergency room visit. Wound care: to POST DEBRIDEMENT located on left foot was irrigated with normal saline, dressed with 4X4s, Kerlix, Patient tolerated well. Administered Medications: 09/29 23:55 Drug: LaSIX 40 mg Route: PO; rv 09/30 00:32 Follow up: Response: No adverse reaction rv 09/29 23:55 Drug: fentaNYL (PF) 25 mcg {Note: RASS 0.} Route: IM; Site: right deltoid; rv 09/30 00:32 Follow up: Response: No adverse reaction; RASS: Alert and Calm (0) rv Outcome: 09/29 23:36 Discharge ordered by . [facility] 09/30 00:31 Discharged to home via wheelchair, with family. rv Condition: good Discharge instructions given to patient, family, Instructed on discharge instructions, follow up and referral plans. wound care, Demonstrated understanding of instructions, follow-up care, wound care. 00:31 Patient left the ED. rv Signatures: Kami Cota FNP-C FNP-Kemal Ribeiro RN RN j Addi Ramachandran, RN RN rv
--- NOTE | 2019-09-30 23:36 | EDPHYS ---
Physician Documentation [facility] Name: Christy Priest Age: 64 yrs Sex: Female : 1955 Arrival Date: 09/30/2019 Time: 22:26 Bed 4 Private MD: ED Physician Rc Moreno HPI: 09/30 00:21 This 64 yrs old Female presents to ER via EMS with complaints of foot snw bleeding. 00:21 The patient presents with bleeding to recent surgical site. The complaints affect the snw left foot. Context: The problem was sustained at home, resulted from recent surgical procedure. Onset: The symptoms/episode began/occurred suddenly, just prior to arrival. Associated signs and symptoms: The patient has no apparent associated signs or symptoms. Severity of symptoms: At their worst the symptoms were mild. It is unknown whether or not the patient has had similar symptoms in the past. The patient has been recently seen by a physician: Dr. Nayak. Historical: - Allergies: 09/29 22:34 Augmentin; jd3 22:34 basil; jd3 22:34 Clindamycin; jd3 22:34 Morphine; jd3 22:34 Nitroglycerin; jd3 22:34 Tramadol HCl; jd3 22:34 Trazodone; jd3 22:34 Vancomycin; jd3 22:34 Vicodin; jd3 22:34 hydrocodone; jd3 - Home Meds: 22:34 gabapentin Oral [Active]; Hydralazine Oral [Active]; insulin [Active]; Lasix Oral jd3 [Active]; Plavix Oral [Active]; - PMHx: 22:34 CHF; COPD; Diabetes - IDDM; ESRD; High Cholesterol; Hypertension; triple bypass; jd3 uterine cancer; - PSHx: 22:34 Cholecystectomy; Hysterectomy; leg surgery; BLE stents; left foot; jd3 - Immunization history:: Adult Immunizations up to date. - Social history:: Smoking status: Patient/guardian denies using tobacco, Stopped _ months ago 0.5. ROS: 09/30 00:19 Constitutional: Negative for fever, chills, and weight loss, Eyes: Negative for injury, snw pain, redness, and discharge, ENT: Negative for injury, pain, and discharge, Neck: Negative for injury, pain, and swelling, Cardiovascular: Negative for chest pain, palpitations, positive edema to bilateral lower extremities Respiratory: Negative for shortness of breath, cough, wheezing, and pleuritic chest pain, Abdomen/GI: Negative for abdominal pain, nausea, vomiting, diarrhea, and constipation, Back: Negative for injury and pain, : Negative for injury, bleeding, discharge, and swelling, MS/Extremity: Negative for injury and deformity, Neuro: Negative for headache, weakness, numbness, tingling, and seizure, Psych: Negative for depression, anxiety, suicide ideation, homicidal ideation, and hallucinations. Skin: Positive for ulceration, venous bleeding from recent ulceration curettage. Exam: 00:14 Head/Face: Normocephalic, atraumatic. Eyes: Pupils equal round and reactive to light, snw extra-ocular motions intact. Lids and lashes normal. Conjunctiva and sclera are non-icteric and not injected. Cornea within normal limits. Periorbital areas with no swelling, redness, or edema. ENT: Nares patent. No nasal discharge, no septal abnormalities noted. Tympanic membranes are normal and external auditory canals are clear. Oropharynx with no redness, swelling, or masses, exudates, or evidence of obstruction, uvula midline. Mucous membranes moist. Neck: Trachea midline, no thyromegaly or masses palpated, and no cervical lymphadenopathy. Supple, full range of motion without nuchal rigidity, or vertebral point tenderness. No Meningismus. Chest/axilla: Normal chest wall appearance and motion. Nontender with no deformity. No lesions are appreciated. 00:14 Respiratory: Lungs have equal breath sounds bilaterally, clear to auscultation and percussion. No rales, rhonchi or wheezes noted. No increased work of breathing, no retractions or nasal flaring. Abdomen/GI: Soft, non-tender, with normal bowel sounds. No distension or tympany. No guarding or rebound. No evidence of tenderness throughout. Back: No spinal tenderness. No costovertebral tenderness. Full range of motion. MS/ Extremity: Pulses equal, no cyanosis. Neurovascular intact. Full, normal range of motion. Neuro: Awake and alert, GCS 15, oriented to person, place, time, and situation. Cranial nerves II-XII grossly intact. Motor strength 5/5 in all extremities. Sensory grossly intact. Cerebellar exam normal. Normal gait. 00:14 Constitutional: The patient appears awake, unkempt, jaundiced 00:14 Cardiovascular: Edema: 3+ edema to level of left ankle, left foot, left toes, right ankle, right foot and right toes. 00:14 Skin: Appearance: Color: jaundiced, Temperature: warm, Moisture: normal moisture, Wound recheck: surgical site at pressure ulcer with small amount of streaming blood, surgicel placed and fluff/rubin applied. distal to bleeding ulceration is another ulcer without bleeding with hernandez wet granulation tissue. Pt was just dc'd from hospital and is to f/u with PCP. Vital Signs: 09/29 22:30 BP 162 / 74; Pulse 63; Resp 19 S; Temp 98.3(TE); Pulse Ox 96% on R/A; Weight 88.9 kg jd3 (R); Height 5 ft. 7 in. (170.18 cm) (R); Pain 8/10; 23:56 BP 171 / 90; Pulse 65; Resp 18; Temp 98.5(O); Pulse Ox 96% on R/A; rv 22:30 Body Mass Index 30.70 (88.90 kg, 170.18 cm) jd3 MDM: 22:48 Patient medically screened. snw 09/30 00:19 Data reviewed: vital signs, nurses notes. Data interpreted: Pulse oximetry: on room air snw is 96 %. Interpretation: acceptable. Counseling: I had a detailed discussion with the patient and/or guardian regarding: the historical points, exam findings, and any diagnostic results supporting the discharge/admit diagnosis, the need for outpatient follow up, for definitive care, to return to the emergency department if symptoms worsen or persist or if there are any questions or concerns that arise at home. Special discussion: I have referred the patient to see his PCP for further evaluation of high blood pressure. Based on the history and exam findings, there is no indication for further emergent testing or inpatient evaluation. I discussed with the patient/guardian the need to see the general surgeon for further evaluation of the symptoms. I discussed with the patient/guardian the need to see the primary care provider for further evaluation of the symptoms. Administered Medications: 09/29 23:55 Drug: LaSIX 40 mg Route: PO; rv 09/30 00:32 Follow up: Response: No adverse reaction rv 09/29 23:55 Drug: fentaNYL (PF) 25 mcg {Note: RASS 0.} Route: IM; Site: right deltoid; rv 09/30 00:32 Follow up: Response: No adverse reaction; RASS: Alert and Calm (0) rv Disposition: 08:53 Co-signature as Attending Physician, Rc Moreno MD I agree with the assessment and tw4 plan of care. Disposition: 09/30/19 23:36 Discharged to Home. Impression: Encounter for attention to dressings, sutures and drains. - Condition is Stable. - Discharge Instructions: Delayed Wound Closure, Wound Care. - Medication Reconciliation Form, Thank You Letter, Antibiotic Education, Prescription Opioid Use form. - Follow up: Emergency Department; When: As needed; Reason: Worsening of condition. Follow up: Private Physician; When: 1 - 2 days; Reason: Recheck today's complaints, Continuance of care, Re-evaluation by your physician. Signatures: Kami Cota, KIA-C CHUCKER-Kemal Ribeiro RN RN jd3 Rc Moreno MD MD tw4 Addi Ramachandran RN RN rv Corrections: (The following items were deleted from the chart) 00:31 09/29 23:36 09/30/2019 23:36 Discharged to Home. Impression: Encounter for attention to rv dressings, sutures and drains. Condition is Stable. Forms are Medication Reconciliation Form, Thank You Letter, Antibiotic Education, Prescription Opioid Use. Follow up: Emergency Department; When: As needed; Reason: Worsening of condition. Follow up: Private Physician; When: 1 - 2 days; Reason: Recheck today's complaints, Continuance of care, Re-evaluation by your physician. snw
[2019-09-30] MEDS ORDERED: FENTANYL CITR 100 MCG/2 ML ONE (23:56)
[2019-09-30] MEDS ORDERED: FUROSEMIDE 40 MG TABLET ONE (23:57)
[2019-10-01 01:01] VITALS: O2SAT 96
[2019-10-01 01:03] VITALS: BP 171/90; TEMP 98.5
== END 2019-10-01 00:31 | disposition home or self-care (01) ==
LOC: ER 22:24
DX: Z48.01 Encounter for change or removal of surgical wound dressing (principal); I12.0 Hypertensive chronic kidney disease with stage 5 chronic kidney disease or end stage renal disease; E11.22 Type 2 diabetes mellitus with diabetic chronic kidney disease; N18.6 End stage renal disease; Z79.4 Long term (current) use of insulin; I50.9 Heart failure, unspecified; Z85.42 Personal history of malignant neoplasm of other parts of uterus; Z79.01 Long term (current) use of anticoagulants; Z88.1 Allergy status to other antibiotic agents; Z88.3 Allergy status to other anti-infective agents; Z88.5 Allergy status to narcotic agent; Z88.8 Allergy status to other drugs, medicaments and biological substances; Z91.018 Allergy to other foods
CPT/HCPCS: 96372; 99284; J3010

== ENCOUNTER 2019-10-04 13:17 | Emergency (ER) | payer MEDICAID ==
--- NOTE | 2019-10-04 14:52 | RAD REPORT ---
EXAM DESCRIPTION: RAD - Foot Left 3 View - 10/04/2019 2:32 pm CLINICAL HISTORY: laceration LEFT second toe COMPARISON: Foot Left 2 View dated 09/27/2019; Foot Left 3 View dated 01/03/2014 FINDINGS: No fracture, dislocation or periosteal reaction. No acute or destructive bony process. Ba ndaging covers the second toe. Retained foreign body is not suspected. 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 IMPRESSION: No foreign body in the soft tissues. No acute bone finding.
--- OUTSIDE RECORDS SUMMARY | 2019-10-04 15:26 | XMS REPORT | Clinical Summary ---
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 05/19/2017 [...] (Season Ended) 2019 Implants Implanted Type Area Fishing Vessel Mate Device Shelf Model / Identifier Expiration Serial / Date Lot Device Clsr Angio-Seal Vip 8fr [id number] - [id number] Cardiovascular N/A: [employer] 01/28/2018 [id number] / Implanted: Qty: 1 on 05/12/2017 by Sandra Gaytan MD [employer] MED:CARDIAC / SURG [id number] Grft Eptfe-Heparin Rng [id number] - [id number] Graft/P atch Right: SUHAS MATHEW & 04/09/2021 [id number] / Implanted: Qty: 1 on 08/05/2017 by Mariela Ramirez MD Leg ASSC:MED PRDT [id number] / N/A Results Not on fileafter 10/03/2018 Insurance Payer Benefit Plan / Group Subscriber ID Type Phone A ddress [place]ID [place] xxxxxxxxx Advance Directives For more information, please contact:[place] [id number] [place], [place] [phone] Code Status Date Activated Date Inactivated Comments [...]
--- OUTSIDE RECORDS SUMMARY | 2019-10-04 15:34 | XMS REPORT | Continuity of Care Document ---
:1955 Author Organization [facility] t Address 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 disorder, disorder, with with long-term long-term current current use of use of insulin insulin Smoker Smoker Disease Active [facility] 2-14 [facility] - 00:00: Medical 00 [place] Frequent Frequent Disease Active [facility] PVCs PVCs 2-12 [facility] - 00:00: Medical 00 [place] Essential Essential Problem Active [facility] (primary) (primary) Luke s - hypertensi hypertensi Me moria on on l [facility] ent Clinics Depression Depression Problem Active [facility] , , [facility] - unspecifie unspecifie Me moria d d l depression depression Ou tpati type type ent Clinics History of History of Problem Active [facility] cancer cancer [facility] - [facility] Primary Primary Problem Active [facility] insomnia insomnia [facility] - [facility] Chronic Chronic Problem Active [facility] acquired acquired [facility] - lymphedema lymphedema Me moria [facility] ent Clinics Chronic Chronic Diagnosis Active [...] diastolic Luke s - congestive congestive Me [facility] heart heart l failure, failure, Outpat i NYHA class NYHA class en t 2 2 Clinics Chronic Chronic Problem Active [facility] obstructiv obstructiv Janna kes - e e Memoria pulmonary pulmonary l disease, disease, Outpat i unspecifie unspecifie en t d COPD d COPD 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 [facility] current current [facility] - use of use of Memoria insulin insulin l [facility] ent Clinics History of History of Problem Active [facility] stroke stroke [facility] - [facility] Clinics 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[address] [facility] diabetes diabetes [facility] - mellitus mellitus Memori a with with l hyperglyce hyperglyce Ou tpati cr [facility] ent Clinics 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[address] [facility] diabetes diabetes [facility] - mellitus mellitus Memori a with with l diabetic diabetic Outpat i chronic chronic ent kidney kidney Clinics disease disease Kidney Kidney Problem Active [facility] disease disease [facility] - [facility] Clinics Allergies, Adverse Reactions, Alerts [...] Analogue adverse 00:00: Medical s reaction 00 [place] s Vancomyc Adverse Active vomiting [facility] in HCl Reaction [facility] - [facility] Clinics Nitrogly Adverse Active vomiting [facility] cerin Reaction [facility] - [facility] ent [facility] Morphine Adverse Active headache, [facility] Sulfate Reaction breathing Luke s - Memoria l [facility] Clindamy Adverse Active vomiting [facility] riley HCl Reaction [facility] - [facility] Family History Family Member Diagnosis Comments Start Date Stop Date Source Natural father COPD [facility] Natural father Cancer [facility] Natural father Hypertension [facility] Natural mother No Known Problem [facility] Natural sister Asthma [facility] Natural sister COPD [facility] Social History Social Habit Start Date Stop Date Quantity Comments Source Sex Assigned At [facility] Cigarettes smoked 2017-09-02 2017-09-02 [facility] - current (pack per 00:00:00 00:00:00 Medical Center day) - Reported Cigarette 2017-09-02 2017-09-02 [facility] - pack-years 00:00:00 00:00:00 [facility] Center History of tobacco 2017-05-12 Current smoker [facility] - use 00:00:00 [facility] Center Smoking Status Start Date Stop Date Source Former smoker 2017-09-02 00:00:00 2017-09-02 00:00:[address] [facility] Medications Ordered Filled Start [...] Inject [facility] detemir 3-04 0.05 mLs [facility] (LEVEMIR 00:00: (5 Units Medic al FLEXPEN) 00 total) [place] 100 unit/mL subcutaneo (3 mL) InPn usly every injection morning. pen needle, Yes Use as [facility] diabetic 29 3-04 directed Luke s - gauge Ndle 00:00: to inject Me dical 00 long and Center short acting insulin.. aspirin 81 Yes 81mg QD Take [address] MG EC 1-22 by mouth [facility] - tablet 20:09: daily. [facility] 35 [place] Trazodone Trazodone Yes Franki TAKE [address] HCl HCl Jas TABLET BY [facility] - MOUTH Memoria EVERYDAY l AT BEDTIME [facility] Isosorbide Isosorbide Yes Franki TAKE [address] [facility] Mononitrate Mononitrate Jas TABLET BY [facility] - ER ER MOUTH Memoria EVERY DAY l [facility] NIFEdipine NIFEdipine Yes Franki TAKE [address] [facility] ER ER Jas TABLET BY [facility] - MOUTH Memoria EVERY DAY l [facility]ics BuPROPion BuPROPion Yes Franki TAKE [address] HCl HCl Jas TABLET BY [facility] - MOUTH Memoria EVERY DAY l [facility] Acetaminoph Acetaminoph Yes Franki (Schedule [...] Test 00:00:00 (Season Ended) [code = Medic tn Center INFLUENZA VACCINE (Season Ended)] Future Scheduled 2017-08-16 HEMOGLOBIN A1C [code = [facility] - Test 00:00:00 HEMOGLOBIN A1C] Medical Cent er Future Scheduled [address] [facility] - Test 00:00:00 [facility] cervix (procedure) [code = 647166426] Future Scheduled [address] Lay es - Test 00:00:00 examination Medical Center (regime/therapy) [code = 170195225] Future Scheduled [address] [facility] [...] [facility]ukes - Test 00:00:00 COLONOSCOPY [code = [facility] Center COLON CANCER SCREENING COLONOSCOPY] Encounters Start End Encounter Admission Attending Care Care Encounter Source Date/Time Date/Time Type Type Clinicians Facility Department ID 2018-11-17 2018-11-17 Outpatient Alison Rosast [id number] 11:30:00 11:30:00 [facility] Medicine Outpati ent Clinics 2018-10-06 2018-10-06 Outpatient Alison Rosast [id number] 16:14:00 16:14:00 [facility] Medicine Outpati ent Clinics 2018-09-28 2018-09-28 Outpatient Alison [place] [id number] 10:30:00 10:30:00 [facility] Medicine Medicine [facility] Results Test Description Test Time Test Comments Results Result Comments Source POCT-GLUCOSE METER 2017-09-05 17:13:00 Test Item Value Reference Range Interpretation Comme nts POC-GLUCOSE METER (ROBERT) (test 220 mg/dL 70-110 H TESTED AT [address] code = 1538) [facility] 7703 0 BASIC METABOLIC [id number] 15:47:00 Test Item Value Reference Range Interpretation [...] NOT APPLICABLE FOR DIALYSIS PATIEN TS. POCT-GLUCOSE [id number] 11:30:00 Test Item Value Reference Range Interpretation Comments POC-GLUCOSE METER 268 mg/dL 70-110 H TESTED AT [place] [address] (BEBANNER) (test code = [facility] Dylon [facility] 1538) [address] POCT-GLUCOSE [id number] 07:08:00 Test Item Value Reference Range Interpretation Comments POC-GLUCOSE METER 208 mg/dL 70-110 H TESTED AT [place] [address] ([facility]NER) (test code = [facility] Dylon [facility] 1538) [address] CALCIUM, [id number] 06:47:00 Test Item Value Reference Range Interpretation Comments CALCIUM IONIZED (BEAKER) (test 1.11 mmol/L 1.12-1.27 L code = 698) PH, BLOOD (BEAKER) (test code = 7.40 1810) BASIC METABOLIC [id number] 06:40:00 Test Item Value Reference Range Interpretation [...] S NOT APPLICABLE FOR DIALYSIS PATIEN TS. [id number] 06:33:00 Test Item Value Reference Range Interpretation Comments PHOSPHORUS (BEAKER) (test code = 5.1 mg/dL 2.3-4.7 H 604) [id number] 06:33:00 Test Item Value Reference Range Interpretation Comments MAGNESIUM (BEAKER) (test code = 2.0 mg/dL 1.6-2.6 627) LACTIC ACID, VENOUS, WHOLE [id number] 06:02:00 Test Item Value Reference Range Interpretation Comments LACTATE BLOOD VENOUS (2) (BEAKER) 0.8 mmol/L 0.5-2.2 (test code = 2872) Effective 08/02/2015: Units/Reference Range ChangeNew: 0.5-2.2 mmol/L Previous: 5-20 mg/dLCBC W/PLT COUNT & AUTO [id number] 05:54:00 Test Item Value Reference Range Interpretation [...] PERCENT (BEAKER) (test code = 2801) POCT-GLUCOSE [id number] 21:30:00 Test Item Value Reference Range Interpretation Comments POC-GLUCOSE METER 248 mg/dL 70-110 H TESTED AT [facility] 6720 (BEAKER) (test code = JULIANO REYEZ 1538) [address] RAD, [id number] 21:22:00Reason for exam:->fall, tailbone painFINAL REPORT RAD, [...] Talbot Verified Date/Time: 09/04/2017 21:22:03 Reading Location: [address] Reading Room POCT-GLUCOSE [id number] 17:37:00 Test Item Value Reference Range Interpretation Comments POC-GLUCOSE METER 222 mg/dL 70-110 H TESTED AT [place] [address] ([facility]) (test code = [facility] [place]ylon [facility] 1538) [address] POCT-GLUCOSE [id number] 13:55:00 Test Item Value Reference Range Interpretation Comments POC-GLUCOSE METER 194 mg/dL 70-110 H TESTED AT [place] [address] ([facility]) (test code = [facility] [place]ylon [facility] 1538) [address] POCT-GLUCOSE [id number] 12:34:00 Test Item Value Reference Range Interpretation Comments POC-GLUCOSE METER 229 mg/dL 70-110 H TESTED AT [place] [address] ([facility]) (test code = [facility] [place]ylon [facility] 1538) [address] POCT-GLUCOSE [id number] 08:00:00 Test Item Value Reference Range Interpretation Comments POC-GLUCOSE METER 159 mg/dL 70-110 H TESTED AT [place] [address] ([facility]) (test code = [facility] 1538) [address] CALCIUM, [id number] 06:00:00 Test Item Value Reference Range Interpretation Comments CALCIUM IONIZED ([facility]) (test 1.05 mmol/L 1.12-1.27 L code = 698) PH, BLOOD (BEAKER) (test code = 7.45 1810) [id number] 05:59:00 Test Item Value Reference Range Interpretation Comments PHOSPHORUS (BEAKER) (test code = 4.8 mg/dL 2.3-4.7 H 604) [id number] 05:59:00 Test Item Value Reference Range Interpretation Comments MAGNESIUM (BEAKER) (test code = 2.0 mg/dL 1.6-2.6 627) BASIC METABOLIC [id number] 05:59:00 Test Item Value Reference Range Interpretation [...] = 380) CBC W/PLT COUNT & AUTO [id number] 05:32:00 Test Item Value Reference Range Interpretation [...] PERCENT (BEAKER) (test code = 2801) POCT-GLUCOSE [id number] 20:36:00 Test Item Value Reference Range Interpretation Comments POC-GLUCOSE METER 211 mg/dL 70-110 H TESTED AT [facility] 6720 (BEAKER) (test code = [place] 1538) [address] CREATININE, RANDOM [id number] 19:55:00 Test Item Value Reference Range Interpretation Comments CREATININE URINE (BEAKER) (test 16.1 mg/dL code = 375) Reference Range: No NormalsPROTEIN, RANDOM [id number] 19:55:00 Test Item Value Reference Range Interpretation Comments PROTEIN, URINE (BEAKER) (test code 102 mg/dL 0-14 H = 1569) POCT-GLUCOSE [id number] 18:04:00 Test Item Value Reference Range Interpretation Comments POC-GLUCOSE METER 177 mg/dL 70-110 H TESTED AT [place] [address] (BEAKER) (test code = [facility] 1538) [address] POCT-GLUCOSE [id number] 11:59:00 Test Item Value Reference Range Interpretation Comments POC-GLUCOSE METER 244 mg/dL 70-110 H TESTED AT [place] [address] (BEAKER) (test code = [facility] 1538) [address] POCT-GLUCOSE [id number] 07:53:00 Test Item Value Reference Range Interpretation Comments POC-GLUCOSE METER 160 mg/dL 70-110 H TESTED AT [place] [address] (BEAKER) (test code = [facility] 1538) [address] BASIC METABOLIC [id number] 05:29:00 Test Item Value Reference Range Interpretation [...] S NOT APPLICABLE FOR DIALYSIS PATIEN TS. [id number] 05:21:00 Test Item Value Reference Range Interpretation Comments MAGNESIUM (BEAKER) (test code = 2.1 mg/dL 1.6-2.6 627) HEPATIC FUNCTION [id number] 05:21:00 Test Item Value Reference Range Interpretation [...] code = 23 U/L 6-55 347) TROPONIN [id number] 05:18:00 Test Item Value Reference Range Interpretation [...] PERCENT (BEAKER) (test code = 2801) TROPONIN [id number] 23:40:00 Test Item Value Reference Range Interpretation [...] acidosis, acute neurological disease, and persistent tachyarrhythmia.POCT-GLUCOSE [id number] 22:51:00 Test Item Value Reference Range Interpretation Comments POC-GLUCOSE METER 214 mg/dL 70-110 H TESTED AT [facility] 6720 (BEAKER) (test code = [place] 1538) [address] RAD, CHEST, 1 VIEW, NON [id number] 21:42:00Reason for exam:->CHEST PAINShould this be performed at the bedside?->YesFINAL REPORT RAD, CHEST, 1 VIEW, NON DEPT INDICATION: CHEST PAIN COMPARISON: Chest x-ray 4 weeks ago TECHNIQUE: Single frontal view of the chest. IMPRESSION:Cardiomegaly.Mild pulmonary interstitial edema with a small right- sided effusion.No acute osseous abnormality. Signed: Dario Abraham MDReport Verified Date/Time: 09/02/2017 21:42:11 Reading Location: [address] Reading Room CREATININE, RANDOM [id number] 21:10:00 Test Item Value Reference Range Interpretation Comments CREATININE URINE (BEAKER) (test 35.5 mg/dL code = 375) Reference Range: No NormalsSODIUM, RANDOM [id number] 21:10:00 Test Item Value Reference Range Interpretation Comments SODIUM URINE (BEAKER) (test code = 80 meq/L 243) Reference Range: No NormalsURINALYSIS W/ [id number] 20:59:00 Test Item Value Reference Range Interpretation [...] code = 514) SOURCE(BEAKER) (test code = 9141) BASIC METABOLIC [id number] 16:49:00 Test Item Value Reference Range Interpretation [...] S NOT APPLICABLE FOR DIALYSIS PATIEN TS. [id number] 16:38:00 Test Item Value Reference Range Interpretation [...] (BEAKER) (test code = 700) BASIC METABOLIC [id number] 13:43:00 Test Item Value Reference Range Interpretation [...] NOT APPLICABLE FOR DIALYSIS PATIEN TS. POCT-GLUCOSE [id number] 12:44:00 Test Item Value Reference Range Interpretation Comments POC-GLUCOSE METER 283 mg/dL 70-110 H TESTED AT [facility] 6720 (BEAKER) (test code = [place] 1538) [address] CALCIUM, [id number] 07:03:00 Test Item Value Reference Range Interpretation Comments CALCIUM IONIZED (BEAKER) (test 1.02 mmol/L 1.12-1.27 L code = 698) PH, BLOOD (BEAKER) (test code = 7.43 1810) [id number] 05:28:00 Test Item Value Reference Range Interpretation Comments PHOSPHORUS (BEAKER) (test code = 3.3 mg/dL 2.3-4.7 604) [id number] 05:28:00 Test Item Value Reference Range Interpretation Comments MAGNESIUM (BEAKER) (test code = 1.5 mg/dL 1.6-2.6 L 627) BASIC METABOLIC [id number] 05:28:00 Test Item Value Reference Range Interpretation [...] PATIEN TS. CBC W/PLT COUNT & AUTO [id number] 05:06:00 Test Item Value Reference Range Interpretation [...] PERCENT (BEAKER) (test code = 2801) POCT-GLUCOSE [id number] 21:08:00 Test Item Value Reference Range Interpretation Comments POC-GLUCOSE METER 202 mg/dL 70-110 H TESTED AT [facility] 6720 (BEAKER) (test code = [facility] 1538) [address] POCT-GLUCOSE [id number] 16:50:00 Test Item Value Reference Range Interpretation Comments POC-GLUCOSE METER 287 mg/dL 70-110 H TESTED AT [place] [address] (BEAKER) (test code = [facility] 1538) [address] POCT-GLUCOSE [id number] 12:21:00 Test Item Value Reference Range Interpretation Comments POC-GLUCOSE METER 213 mg/dL 70-110 H TESTED AT [place] [address] (BEAKER) (test code = [facility] 1538) [address] POCT-GLUCOSE [id number] 08:28:00 Test Item Value Reference Range Interpretation Comments POC-GLUCOSE METER 178 mg/dL 70-110 H TESTED AT [place] [address] ([facility]) (test code = [facility] 1538) [address] CALCIUM, [id number] 07:06:00 Test Item Value Reference Range Interpretation Comments CALCIUM IONIZED (BEAKER) (test 0.99 mmol/L 1.12-1.27 L code = 698) PH, BLOOD (BEAKER) (test code = 7.42 1810) [id number] 05:37:00 Test Item Value Reference Range Interpretation Comments PHOSPHORUS (BEAKER) (test code = 3.5 mg/dL 2.3-4.7 604) [id number] 05:37:00 Test Item Value Reference Range Interpretation Comments MAGNESIUM (BEAKER) (test code = 1.6 mg/dL 1.6-2.6 627) BASIC METABOLIC [id number] 05:37:00 Test Item Value Reference Range Interpretation [...] PATIEN TS. CBC W/PLT COUNT & AUTO [id number] 05:07:00 Test Item Value Reference Range Interpretation [...] LYMPHOCYTES ABSOLUTE COUNT 2.72 K/ L 1.18-3.74 ([facility]) (test code = 414) MONOCYTES ABSOLUTE COUNT (BEAKER) 0.48 K/ L 0.24-0.36 H (test code = 415) EOSINOPHILS ABSOLUTE COUNT 0.26 K/ L 0.04-0.36 (AKER) (test code = 416) BASOPHILS ABSOLUTE COUNT (AKER) 0.04 K/ L 0.01-0.08 (test code = 417) IMMATURE GRANULOCYTES-RELATIVE 1 % 0-1 PERCENT ([facility]) (test code = 2801) POCT-GLUCOSE [id number] 21:24:00 Test Item Value Reference Range Interpretation Comments POC-GLUCOSE METER 255 mg/dL 70-110 H TESTED AT [place] [address] ([facility]) (test code = [facility] 1538) [address] POCT-GLUCOSE [id number] 17:11:00 Test Item Value Reference Range Interpretation Comments POC-GLUCOSE METER 244 mg/dL 70-110 H TESTED AT [place] [address] ([facility]) (test code = [facility] 1538) [address] POCT-GLUCOSE [id number] 11:54:00 Test Item Value Reference Range Interpretation Comments POC-GLUCOSE METER 209 mg/dL 70-110 H TESTED AT [place] [address] ([facility]) (test code = [facility] 1538) [address] POCT-GLUCOSE [id number] 08:15:00 Test Item Value Reference Range Interpretation Comments POC-GLUCOSE METER 132 mg/dL 70-110 H TESTED AT [place] [address] ([facility]) (test code = [facility] 1538) [address] RAD, CHEST, 1 VIEW, NON [id number] 07:44:00Reason for exam:->edemaShould this be performed at the bedside?->YesFINAL REPORT Chest one view AP 08/07/2017 7:44 AM CLINICAL INDICATION: edema COMPARISON: 05/31/2017 IMPRESSION: Cardiomediastinal contours are stable. There is mild pulmonary edema,asymmetric to the right. There are trace bilateral pleural effusions, with bibasilar linear atelectasis. Sternotomy wires remain midline. Signed: Regan Cespedes MDReport Verified Date/Time: 08/07/2017 07:44:22 Reading Location: [facility] Radiology Reading Room [id number] 05:30:00 Test Item Value Reference Range Interpretation Comments FERRITIN (BEAKER) (test code = 361) 87 ng/mL 5-275 CBC W/PLT COUNT & AUTO [id number] 05:21:00 Test Item Value Reference Range Interpretation [...] % 20-55 L (test code = 2590) [id number] 05:11:00 Test Item Value Reference Range Interpretation Comments PHOSPHORUS (BEAKER) (test code = 3.6 mg/dL 2.3-4.7 604) [id number] 05:11:00 Test Item Value Reference Range Interpretation Comments MAGNESIUM (BEAKER) (test code = 2.0 mg/dL 1.6-2.6 627) BASIC METABOLIC [id number] 05:11:00 Test Item Value Reference Range Interpretation [...] H (BEAKER) (test code = 700) CALCIUM, [id number] 04:58:00 Test Item Value Reference Range Interpretation Comments CALCIUM IONIZED (BEAKER) (test 1.04 mmol/L 1.12-1.27 L code = 698) PH, BLOOD (BEAKER) (test code = 7.41 1810) RETICULOCYTE [id number] 04:51:00 Test Item Value Reference Range Interpretation Comments RETICULOCYTE COUNT PCT (BEAKER) (test 1.2 % 0.5-1.7 code = 575) POCT-GLUCOSE [id number] 20:49:00 Test Item Value Reference Range Interpretation Comments POC-GLUCOSE METER 202 mg/dL 70-110 H TESTED AT [facility] 6720 (BEAKER) (test code = JULIANO Osborne [place] 1538) [address] CREATININE, RANDOM [id number] 18:38:00 Test Item Value Reference Range Interpretation Comments CREATININE URINE (BEAKER) (test 56.3 mg/dL code = 375) Reference Range: No NormalsPROTEIN, RANDOM [id number] 18:38:00 Test Item Value Reference Range Interpretation Comments PROTEIN, URINE (BEAKER) (test code 189 mg/dL 0-14 H = 1569) URINALYSIS W/ [id number] 18:34:00 Test Item Value Reference Range Interpretation [...] 516) SOURCE(BEAKER) (test code = Urine, Voided 8493) POCT-GLUCOSE [id number] 17:38:00 Test Item Value Reference Range Interpretation Comments POC-GLUCOSE METER 143 mg/dL 70-110 H TESTED AT [place] [address] ([facility]) (test code = [facility] 1538) [address] POCT-GLUCOSE [id number] 12:30:00 Test Item Value Reference Range Interpretation Comments POC-GLUCOSE METER 218 mg/dL 70-110 H TESTED AT [place] [address] ([facility]) (test code = [facility] 1538) [address] POCT-GLUCOSE [id number] 08:00:00 Test Item Value Reference Range Interpretation Comments POC-GLUCOSE METER 134 mg/dL 70-110 H TESTED AT [place] [address] ([facility]) (test code = [facility] 1538) [address] CBC W/PLT COUNT & AUTO [id number] 04:23:00 Test Item Value Reference Range Interpretation [...] (BEAKER) (test code = 2801) BASIC METABOLIC [id number] 04:13:00 Test Item Value Reference Range Interpretation [...] S NOT APPLICABLE FOR DIALYSIS PATIEN TS. [id number] 04:10:00 Test Item Value Reference Range Interpretation Comments PHOSPHORUS (BEAKER) (test code = 4.9 mg/dL 2.3-4.7 H 604) [id number] 04:10:00 Test Item Value Reference Range Interpretation Comments MAGNESIUM (BEAKER) (test code = 1.4 mg/dL 1.6-2.6 L 627) [id number] 04:08:00 Test Item Value Reference Range Interpretation Comments FIBRINOGEN LEVEL (BEAKER) (test 548 mg/dl 225-434 H code = 658) [id number] 04:08:00 Test Item Value Reference Range Interpretation Comments PARTIAL THROMBOPLASTIN TIME 37.7 seconds 22.5-36.0 H (BEAKER) (test code = 760) PROTHROMBIN [id number] 04:07:00 Test Item Value Reference Range Interpretation Comments PROTIME (BEAKER) (test code = 16.2 seconds 11.7-14.7 H 759) INR (BEAKER) (test code = 370) 1.3 <=5.9 RECOMMENDED COUMADIN/WARFARIN INR THERAPY RANGESSTANDARD DOSE: 2.0 - 3.0 Includes: PROPHYLAXIS forvenous thrombosis, systemic embolization; TREATMENT for venous thrombosis and/or pulmonary embolus.HIGH RISK: Target INR is 2.5-3.5 for patients with mechanical heart valves.[id number] 16:59:00 Test Item Value Reference Range Interpretation Comments ACTIVATED CLOTTING TIME 219 sec TEST ED AT [place] [address] (BEAKER) (test code = [place] 441) [address] BASIC METABOLIC [id number] 14:25:00 Test Item Value Reference Range Interpretation [...] NOT APPLICABLE FOR DIALYSIS PATIEN TS. POCT-GLUCOSE [id number] 13:21:00 Test Item Value Reference Range Interpretation Comments POC-GLUCOSE METER 170 mg/dL 70-110 H TESTED AT [facility] 6720 (BEAKER) (test code = [place]IAN[place] 1538) [address] POTASSIUM-STAT [id number] 13:20:00 Test Item Value Reference Range Interpretation Comments POTASSIUM (BEAKER) (test code = 4.2 meq/L 3.6-5.5 379) SODIUM NA-STAT [id number] 13:20:00 Test Item Value Reference Range Interpretation Comments SODIUM (BEAKER) (test code = 381) 133 meq/L 135-148 L HGB/HCT (H&H) - STAT [id number] 12:34:00 Test Item Value Reference Range Interpretation Comments HEMOGLOBIN (BEAKER) (test code = 10.8 g/dL 12.0-15.0 L 410) HEMATOCRIT (BEAKER) (test code = 32.0 % 36.0-45.0 L 411) POTASSIUM-STAT [id number] 08:15:00 Test Item Value Reference Range Interpretation Comments POTASSIUM (BEAKER) (test code = 4.1 meq/L 3.6-5.5 379) BLOOD GAS, [id number] 08:15:00 Test Item Value Reference Range Interpretation [...] code = 1819) 70.0 % SODIUM NA-STAT [id number] 08:15:00 Test Item Value Reference Range Interpretation Comments SODIUM (BEAKER) (test code = 381) 130 meq/L 135-148 L GLUCOSE-STAT [id number] 08:15:00 Test Item Value Reference Range Interpretation Comments GLUCOSE RANDOM (BEAKER) (test code 172 mg/dL 70-110 H = 652) HGB/HCT (H&H) - STAT [id number] 08:15:00 Test Item Value Reference Range Interpretation Comments HEMOGLOBIN (BEAKER) (test code = 8.8 g/dL 12.0-15.0 L 410) HEMATOCRIT (BEAKER) (test code = 26.0 % 36.0-45.0 L 411) BASIC METABOLIC [id number] 07:37:00 Test Item Value Reference Range Interpretation [...] PATIEN TS. CBC W/PLT COUNT & AUTO [id number] 07:20:00 Test Item Value Reference Range Interpretation [...] PERCENT (BEAKER) (test code = 2801) POCT-GLUCOSE [id number] 07:03:00 Test Item Value Reference Range Interpretation Comments POC-GLUCOSE METER 186 mg/dL 70-110 H TESTED AT [facility] 6720 (BEAKER) (test code = JULIANO Osborne [facility] 1538) [address] B-TYPE NATRIURETIC FACTOR (BNP)2017-06-10 12:44:00 Test Item Value Reference Range Interpretation Comments B-TYPE NATRIURETIC PEPTIDE 1264 pg/mL 0-100 H (BEAKER) (test code = 700) [id number] 12:36:00 Test Item Value Reference Range Interpretation Comments MAGNESIUM (BEAKER) (test code = 1.6 mg/dL 1.6-2.6 627) BASIC METABOLIC [id number] 12:36:00 Test Item Value Reference Range Interpretation [...] NOT APPLICABLE FOR DIALYSIS PATIEN TS. POCT-GLUCOSE [id number] 12:04:00 Test Item Value Reference Range Interpretation Comments POC-GLUCOSE METER 274 mg/dL 70-110 H TESTED AT [facility] 6720 (BEAKER) (test code = MATTHIASIA Dylon [facility] 1538) [address] POCT-GLUCOSE [id number] 07:21:00 Test Item Value Reference Range Interpretation Comments POC-GLUCOSE METER 137 mg/dL 70-110 H TESTED AT [facility] 6720 (BEAKER) (test code = [facility] Dylon [facility] 1538) [address] BASIC METABOLIC [id number] 05:10:00 Test Item Value Reference Range Interpretation [...] 0-0 (BEAKER) (test code = 413) POCT-GLUCOSE [id number] 21:23:00 Test Item Value Reference Range Interpretation Comments POC-GLUCOSE METER 240 mg/dL 70-110 H TESTED AT [place] [address] ([facility]) (test code = [facility] 1538) [address] POCT-GLUCOSE [id number] 16:42:00 Test Item Value Reference Range Interpretation Comments POC-GLUCOSE METER 234 mg/dL 70-110 H TESTED AT [place] [address] ([facility]) (test code = [facility] 1538) [address]70 POCT-GLUCOSE [id number] 13:22:00 Test Item Value Reference Range Interpretation Comments POC-GLUCOSE METER 166 mg/dL 70-110 H TESTED AT [place] [address] ([facility]) (test code = [facility] 1538) 265[address] RAD, CHEST, 1 VIEW, NON [id number] 09:43:00Reason for exam:->s/p ACBShould this be performed [...] Ring MDReport Verified Date/Time: 05/31/2017 09:43:30 ReadingLocation: [facility] B1 C013X Ortho Consult Reading Room POCT-GLUCOSE [id number] 06:57:00 Test Item Value Reference Range Interpretation Comments POC-GLUCOSE METER 136 mg/dL 70-110 H TESTED AT [facility] 6720 (BEAKER) (test code = [place]ULIANO [place] 1538) [address] CALCIUM, [id number] 06:41:00 Test Item Value Reference Range Interpretation Comments CALCIUM IONIZED (BEAKER) (test 1.10 mmol/L 1.12-1.27 L code = 698) PH, BLOOD (BEAKER) (test code = 7.42 1810) [id number] 06:17:00 Test Item Value Reference Range Interpretation Comments PHOSPHORUS (BEAKER) (test code = 3.3 mg/dL 2.3-4.7 604) [id number] 06:17:00 Test Item Value Reference Range Interpretation Comments MAGNESIUM (BEAKER) (test code = 1.8 mg/dL 1.6-2.6 627) BASIC METABOLIC [id number] 06:17:00 Test Item Value Reference Range Interpretation [...] PATIEN TS. CBC W/PLT COUNT & AUTO [id number] 05:07:00 Test Item Value Reference Range Interpretation [...] 417) IMMATURE GRANULOCYTES-RELATIVE 1 % 0-1 PERCENT ([facility]) (test code = 2801) POCT-GLUCOSE [id number] 20:56:00 Test Item Value Reference Range Interpretation Comments POC-GLUCOSE METER 196 mg/dL 70-110 H TESTED AT [place] [address] ([facility]) (test code = [facility] 1538) 13777 POCT-GLUCOSE [id number] 16:42:00 Test Item Value Reference Range Interpretation Comments POC-GLUCOSE METER 196 mg/dL 70-110 H TESTED AT [place] [address] ([facility]) (test code = [facility] 1538) [address]66 POCT-GLUCOSE [id number] 11:45:00 Test Item Value Reference Range Interpretation Comments POC-GLUCOSE METER 215 mg/dL 70-110 H TESTED AT [place] [address] ([facility]) (test code = [facility] 1538) 95[address] RAD, CHEST, 1 VIEW, NON [id number] 11:15:00Reason for exam:->s/p ACBShould this be performed at the bedside?->YesFINAL REPORT Chest one view compared to May 28, 2017 Discussion: Airspace opacities are seen in both lower lung regions, probably atelectasis. Correlate clinically for infection. I could not exclude small effusions. No pneumothorax. Upper lungs clear. Signed: Jeannette Nava Verified Date/Time: 05/30/2017 11:15:07 Reading Location: [facility] Radiology Reading Room CALCIUM, [id number] 09:21:00 Test Item Value Reference Range Interpretation Comments CALCIUM IONIZED (BEAKER) (test 1.11 mmol/L 1.12-1.27 L code = 698) PH, BLOOD (BEAKER) (test code = 7.36 1810) BASIC METABOLIC [id number] 07:37:00 Test Item Value Reference Range Interpretation [...] S NOT APPLICABLE FOR DIALYSIS PATIEN TS. [id number] 07:28:00 Test Item Value Reference Range Interpretation Comments PHOSPHORUS (BEAKER) (test code = 3.8 mg/dL 2.3-4.7 604) [id number] 07:28:00 Test Item Value Reference Range Interpretation Comments MAGNESIUM (BEAKER) (test code = 1.9 mg/dL 1.6-2.6 627) CBC W/PLT COUNT & AUTO [id number] 07:26:00 Test Item Value Reference Range Interpretation [...] PERCENT (BEAKER) (test code = 2801) POCT-GLUCOSE [id number] 07:21:00 Test Item Value Reference Range Interpretation Comments POC-GLUCOSE METER 146 mg/dL 70-110 H TESTED AT [facility] 6720 (BEAKER) (test code = JULIANO REYEZ 1538) [address] POCT-GLUCOSE [id number] 22:02:00 Test Item Value Reference Range Interpretation Comments POC-GLUCOSE METER 201 mg/dL 70-110 H TESTED AT [facility] 6720 (BEAKER) (test code = JULIANO Osborne [facility] 1538) 15631 POCT-GLUCOSE [id number] 18:27:00 Test Item Value Reference Range Interpretation Comments POC-GLUCOSE METER 240 mg/dL 70-110 H TESTED AT [place] [address] (BEAKER) (test code = JULIANO Osborne [facility] 1538) [address] POCT-GLUCOSE [id number] 12:13:00 Test Item Value Reference Range Interpretation Comments POC-GLUCOSE METER 193 mg/dL 70-110 H TESTED AT [place] [address] (BEAKER) (test code = JULIANO Osborne [facility] 1538) [address] POCT-GLUCOSE [id number] 09:02:00 Test Item Value Reference Range Interpretation Comments POC-GLUCOSE METER 132 mg/dL 70-110 H TESTED AT [place] [address] (BEBANNER) ([facility] 1538) [address] CALCIUM, [id number] 05:42:00 Test Item Value Reference Range Interpretation Comments CALCIUM IONIZED (BEAKER) (test 1.12 mmol/L 1.12-1.27 code = 698) PH, BLOOD (BEAKER) (test code = 7.34 1810) COMPREHENSIVE METABOLIC [id number] 05:33:00 Test Item Value Reference Range Interpretation [...] S NOT APPLICABLE FOR DIALYSIS PATIEN TS. [id number] 05:32:00 Test Item Value Reference Range Interpretation Comments PHOSPHORUS (BEAKER) (test code = 3.6 mg/dL 2.3-4.7 604) [id number] 05:32:00 Test Item Value Reference Range Interpretation Comments MAGNESIUM (BEAKER) (test code = 2.2 mg/dL 1.6-2.6 627) CBC W/PLT COUNT & AUTO [id number] 05:01:00 Test Item Value Reference Range Interpretation [...] PERCENT (BEAKER) (test code = 2801) POCT-GLUCOSE [id number] 21:04:00 Test Item Value Reference Range Interpretation Comments POC-GLUCOSE METER 165 mg/dL 70-110 H TESTED AT [facility] 6720 ([facility]) (test code = JULIANO Osborne [facility] 1538) 18804 POCT-GLUCOSE [id number] 17:30:00 Test Item Value Reference Range Interpretation Comments POC-GLUCOSE METER 236 mg/dL 70-110 H TESTED AT [facility] 6720 ([facility]) (test code = [facility] 1538) [address] RAD, CHEST, 1 VIEW, NON [id number] 13:53:00Reason for exam:->assess for ill-defined opacityShould this [...] MDReport Verified Date/Time: 05/28/2017 13:53:03 Reading Location: [address] Radiology Reading Room POCT-GLUCOSE [id number] 11:53:00 Test Item Value Reference Range Interpretation Comments POC-GLUCOSE METER 215 mg/dL 70-110 H TESTED AT [place] [address] (BEAKER) (test code = [facility] 1538) [address] POCT-GLUCOSE [id number] 08:32:00 Test Item Value Reference Range Interpretation Comments POC-GLUCOSE METER 168 mg/dL 70-110 H TESTED AT [place] [address] (BEAKER) (test code = [facility] 1538) [address] CALCIUM, [id number] 05:44:00 Test Item Value Reference Range Interpretation Comments CALCIUM IONIZED (BEAKER) (test 1.09 mmol/L 1.12-1.27 L code = 698) PH, BLOOD (BEAKER) (test code = 7.38 1810) [id number] 05:44:00 Test Item Value Reference Range Interpretation Comments PHOSPHORUS (BEAKER) (test code = 3.5 mg/dL 2.3-4.7 604) [id number] 05:44:00 Test Item Value Reference Range Interpretation Comments MAGNESIUM (BEAKER) (test code = 1.9 mg/dL 1.6-2.6 627) BASIC METABOLIC [id number] 05:44:00 Test Item Value Reference Range Interpretation [...] PATIEN TS. CBC W/PLT COUNT & AUTO [id number] 05:05:00 Test Item Value Reference Range Interpretation [...] PERCENT (BEAKER) (test code = 2801) POCT-GLUCOSE [id number] 21:03:00 Test Item Value Reference Range Interpretation Comments POC-GLUCOSE METER 173 mg/dL 70-110 H TESTED AT [place] [address] ([facility]) (test code = JULIANO Osborne [facility] 1538) 26[address] [id number] 18:15:00 Test Item Value Reference Range Interpretation Comments ACTIVATED CLOTTING TIME 147 sec TEST ED AT [place] [address] ([facility]) (test code = [facility] Dylon [facility] 441) [address] [id number] 18:15:00 Test Item Value Reference Range Interpretation Comments ACTIVATED CLOTTING TIME 246 sec TEST ED AT [place] [address] ([facility]) (test code = [facility] Dylon [place] [address]) [address] POCT-GLUCOSE [id number] 12:39:00 Test Item Value Reference Range Interpretation Comments POC-GLUCOSE METER 219 mg/dL 70-110 H TESTED AT [place] [address] ([facility]) (test code = [facility] 1538) [address] RAD, CHEST, 1 VIEW, NON [id number] 10:11:00Reason for exam:->pl effusionShould this be performed [...] METER 167 mg/dL 70-110 H TESTED AT [facility] 6720 (BEAKER) (test code = JULIANO [place] 1538) [address] CALCIUM, [id number] 06:20:00 Test Item Value Reference Range Interpretation Comments CALCIUM IONIZED (BEAKER) (test 0.98 mmol/L 1.12-1.27 L code = 698) PH, BLOOD (BEAKER) (test code = 7.50 1810) [id number] 04:56:00 Test Item Value Reference Range Interpretation Comments PHOSPHORUS (BEAKER) (test code = 2.6 mg/dL 2.3-4.7 604) [id number] 04:56:00 Test Item Value Reference Range Interpretation Comments MAGNESIUM (BEAKER) (test code = 2.0 mg/dL 1.6-2.6 627) BASIC METABOLIC [id number] 04:56:00 Test Item Value Reference Range Interpretation [...] PATIEN TS. CBC W/PLT COUNT & AUTO [id number] 04:36:00 Test Item Value Reference Range Interpretation [...] EOSINOPHILS ABSOLUTE COUNT 0.22 K/ L 0.04-0.36 ([facility]) (test code = 416) BASOPHILS ABSOLUTE COUNT ([facility]) 0.05 K/ L 0.01-0.08 (test code = 417) IMMATURE GRANULOCYTES-RELATIVE 1 % 0-1 PERCENT ([facility]) (test code = 2801) POCT-GLUCOSE [id number] 21:29:00 Test Item Value Reference Range Interpretation Comments POC-GLUCOSE METER 147 mg/dL 70-110 H TESTED AT [place] [address] ([facility]) (test code = [facility] 1538) 20581 POCT-GLUCOSE [id number] 17:51:00 Test Item Value Reference Range Interpretation Comments POC-GLUCOSE METER 224 mg/dL 70-110 H TESTED AT [place] [address] ([facility]) (test code = [facility] 1538) 11682 POCT-GLUCOSE [id number] 13:53:00 Test Item Value Reference Range Interpretation Comments POC-GLUCOSE METER 182 mg/dL 70-110 H TESTED AT [place] [address] ([facility]) (test code = [facility] 1538) 35248 RAD, CHEST, 1 VIEW, NON [id number] 08:44:00Reason for exam:->pl effusionShould this be performed [...] Ramirezepemily Verified Date/Time: 05/26/2017 08:44:25 Reading Location: [address] Radiology Reading Room POCT- GLUCOSE [id number] 07:43:00 Test Item Value Reference Range Interpretation Comments POC-GLUCOSE METER 113 mg/dL 70-110 H TESTED AT [facility] 6720 (BEAKER) (test code = JULIANO [place] 1538) [address] CALCIUM, [id number] 06:31:00 Test Item Value Reference Range Interpretation Comments CALCIUM IONIZED (BEAKER) (test 1.07 mmol/L 1.12-1.27 L code = 698) PH, BLOOD (BEAKER) (test code = 7.38 1810) [id number] 04:51:00 Test Item Value Reference Range Interpretation Comments PHOSPHORUS (BEAKER) (test code = 3.2 mg/dL 2.3-4.7 604) [id number] 04:51:00 Test Item Value Reference Range Interpretation Comments MAGNESIUM (BEAKER) (test code = 2.1 mg/dL 1.6-2.6 627) BASIC METABOLIC [id number] 04:51:00 Test Item Value Reference Range Interpretation [...] PATIEN TS. CBC W/PLT COUNT & AUTO [id number] 04:27:00 Test Item Value Reference Range Interpretation [...] PERCENT (BEAKER) (test code = 2801) POCT-GLUCOSE [id number] 23:48:00 Test Item Value Reference Range Interpretation Comments POC-GLUCOSE METER 123 mg/dL 70-110 H TESTED AT [facility] 6720 (BEAKER) (test code = JULIANO Osborne [place] 1538) [address] POCT-GLUCOSE [id number] 16:46:00 Test Item Value Reference Range Interpretation Comments POC-GLUCOSE METER 178 mg/dL 70-110 H TESTED AT [facility] 6720 (BEAKER) (test code = JULIANO Osborne [place] 1538) [address] BASIC METABOLIC [id number] 05:53:00 Test Item Value Reference Range Interpretation [...] S NOT APPLICABLE FOR DIALYSIS PATIEN TS. [id number] 05:52:00 Test Item Value Reference Range Interpretation Comments PHOSPHORUS (BEAKER) (test code = 4.2 mg/dL 2.3-4.7 604) [id number] 05:52:00 Test Item Value Reference Range Interpretation Comments MAGNESIUM (BEAKER) (test code = 2.3 mg/dL 1.6-2.6 627) CALCIUM, [id number] 05:27:00 Test Item Value Reference Range Interpretation Comments CALCIUM IONIZED (BEAKER) (test 1.12 mmol/L 1.12-1.27 code = 698) PH, BLOOD (BEAKER) (test code = 7.38 1810) CBC W/PLT COUNT & AUTO [id number] 05:07:00 Test Item Value Reference Range Interpretation [...] 417) IMMATURE GRANULOCYTES-RELATIVE 1 % 0-1 PERCENT ([facility]) (test code = 2801) RAD, CHEST, 1 VIEW, NON [id number] 04:45:00Reason for exam:->pl effusionShould this be performed at the bedside?->YesFINAL REPORT RAD, CHEST, 1 VIEW, NON DEPT INDICATION: pl effusion COMPARISON:Prior day's exam FINDINGS: Portable frontal view of the chest. IMPRESSION: Support Lines: Stable.Lungs and pleura: Unchanged airspace and pleural opacities. No pneumothorax.Heart and mediastinum: Stable contours. Stable surgical changes.Additional findings: None. Signed: JR Boswell Robert MDReport Verified Date/Time: 05/25/2017 04:45:08 Reading Location: [place] [id number] CT Body Reading Room POCT-GLUCOSE [id number] 01:52:00 Test Item Value Reference Range Interpretation Comments POC-GLUCOSE METER 126 mg/dL 70-110 H TESTED AT [place] [address] ([facility]) (test code = JULIANO Osborne [facility] 1538) [address]89 POCT-GLUCOSE [id number] 13:07:00 Test Item Value Reference Range Interpretation Comments POC-GLUCOSE METER 118 mg/dL 70-110 H TESTED AT [place] [address] ([facility]) (test code = JULIANO Osborne [facility] 1538) [address] BRONCHIAL CULTURE + GRAM [id number] 11:35:00 Test Item Value Reference Range Interpretation Comments CULTURE ([facility]) (test code = 1095) Amikacin (test code [...] <1+ gram (BEAKER) (test code = positive 869610) cocci in pairs GRAM STAIN RESULT 1+ gram (BEAKER) (test code = variable rods 986770) 1+ Normal respiratory todd presentRAD, CHEST, 1 VIEW, NON [id number] 06:50:00Reason for exam:->pl effusionShould this be performed at the bedside?->YesFINAL REPORT RAD, CHEST, 1 VIEW, NON DEPT INDICATION: pl effusion COMPARISON:Prior day's exam FINDINGS: Portable frontal view of the chest. IMPRESSION: Support Lines: Stable.Lungs and pleura: Unchanged airspace and pleural opacities. No pneumothorax.Heart and mediastinum: Stable contours. Stable surgical changes.Additional findings: None. Signed: JR Boswell Robert MDReport Verified Date/Time: 05/24/2017 06:50:08 Reading Location: [facility] C013Y CT Body Reading Room BASIC METABOLIC [id number] 04:19:00 Test Item Value Reference Range Interpretation [...] NOT APPLICABLE FOR DIALYSIS PATIEN TS. CALCIUM, [id number] 04:16:00 Test Item Value Reference Range Interpretation Comments CALCIUM IONIZED (BEAKER) (test 1.06 mmol/L 1.12-1.27 L code = 698) PH, BLOOD (BEAKER) (test code = 7.40 1810) [id number] 04:11:00 Test Item Value Reference Range Interpretation Comments PHOSPHORUS (BEAKER) (test code = 6.0 mg/dL 2.3-4.7 H 604) [id number] 04:11:00 Test Item Value Reference Range Interpretation Comments MAGNESIUM (BEAKER) (test code = 2.4 mg/dL 1.6-2.6 627) CBC W/PLT COUNT & AUTO [id number] 03:50:00 Test Item Value Reference Range Interpretation [...] PERCENT (BEAKER) (test code = 2801) POCT-GLUCOSE [id number] 20:45:00 Test Item Value Reference Range Interpretation Comments POC-GLUCOSE METER 143 mg/dL 70-110 H TESTED AT [facility] 67 ([facility]) (test code = JULIANO Osborne [place] 1538) [address] POCT-GLUCOSE [id number] 20:45:00 Test Item Value Reference Range Interpretation Comments POC-GLUCOSE METER 145 mg/dL 70-110 H TESTED AT [facility] 6720 ([facility]) (test code = JULIANO Osborne [place] 1538) [address] [id number] 13:37:00 Test Item Value Reference Range Interpretation Comments PREALBUMIN (BEAKER) 10 mg/dL 14-45 L Specimen slightly (test code = 586) hemolyzed OXYGEN SATURATION, [id number] 12:31:00 Test Item Value Reference Range Interpretation Comments O2 SATURATION (MEASURED) (BEAKER) 94.5 % (test code = 1455) [id number] 11:02:00 Test Item Value Reference Range Interpretation Comments PREALBUMIN (BEAKER) (test code = 10 mg/dL 14-45 L 586) RAD, CHEST, 1 VIEW, NON [id number] 05:14:00while patient is intubated or has chest [...] MDReport Verified Date/Time: 05/23/2017 05:14:04 Reading Location: [place] [address] CT Body Reading Room BASIC METABOLIC [id number] 03:48:00 Test Item Value Reference Range Interpretation [...] S NOT APPLICABLE FOR DIALYSIS PATIEN TS. [id number] 03:46:00 Test Item Value Reference Range Interpretation Comments MAGNESIUM (BEAKER) 2.4 mg/dL 1.6-2.6 Specimen slightly (test code = 627) hemolyzed [id number] 03:46:00 Test Item Value Reference Range Interpretation Comments PHOSPHORUS (BEAKER) 6.5 mg/dL 2.3-4.7 H Specimen slightly (test code = 604) hemolyzed CBC W/PLT COUNT & AUTO [id number] 03:26:00 Test Item Value Reference Range Interpretation [...] (BEAKER) (test code = 2801) BLOOD GAS, [id number] 03:18:00 Test Item Value Reference Range Interpretation [...] (test code = 1819) 36.0 % CALCIUM, [id number] 16:32:00 Test Item Value Reference Range Interpretation Comments CALCIUM IONIZED (BEAKER) (test 1.11 mmol/L 1.12-1.27 L code = 698) PH, BLOOD (BEAKER) (test code = 7.39 1810) BASIC METABOLIC [id number] 15:43:00 Test Item Value Reference Range Interpretation [...] NOT APPLICABLE FOR DIALYSIS PATIEN TS. POCT-GLUCOSE [id number] 12:53:00 Test Item Value Reference Range Interpretation Comments POC-GLUCOSE METER 118 mg/dL 70-110 H TESTED AT [place] [address] ([facility]) (test code = [facility] 1538) [address] BLOOD GAS, [id number] 10:42:00 Test Item Value Reference Range Interpretation [...] (test code = 1819) 40.0 % POCT-GLUCOSE [id number] 06:46:00 Test Item Value Reference Range Interpretation Comments POC-GLUCOSE METER 106 mg/dL 70-110 TESTED AT [place] [address] ([facility]) (test code = [facility] 1538) [address] RAD, CHEST, 1 VIEW, NON [id number] 05:05:00while patient is intubated or has chest [...] MDReport Verified Date/Time: 05/22/2017 05:05:00 Reading Location: [facility] C013Y CT Body ReadingRoom BASIC METABOLIC [id number] 05:00:00 Test Item Value Reference Range Interpretation [...] S NOT APPLICABLE FOR DIALYSIS PATIEN TS. [id number] 04:41:00 Test Item Value Reference Range Interpretation Comments PHOSPHORUS (BEAKER) (test code = 6.4 mg/dL 2.3-4.7 H 604) [id number] 04:41:00 Test Item Value Reference Range Interpretation Comments MAGNESIUM (BEAKER) (test code = 2.6 mg/dL 1.6-2.6 627) CALCIUM, [id number] 04:26:00 Test Item Value Reference Range Interpretation Comments CALCIUM IONIZED (BEAKER) (test 1.09 mmol/L 1.12-1.27 L code = 698) PH, BLOOD (BEAKER) (test code = 7.40 1810) OXYGEN SATURATION, [id number] 04:25:00 Test Item Value Reference Range Interpretation Comments O2 SATURATION (MEASURED) (BEAKER) 77.0 % (test code = 1455) CBC W/PLT COUNT & AUTO [id number] 04:17:00 Test Item Value Reference Range Interpretation [...] code = 2801) LACTIC ACID, ARTERIAL, WHOLE [id number] 00:07:00 Test Item Value Reference Range Interpretation Comments LACTATE BLOOD 1.0 mmol/L 0.5-2.2 Specimen sligh tly ARTERIAL (2) (BEAKER) hemoly zed (test code = 2874) Effective 08/02/2015: Units/Reference Range ChangeNew: 0.5-2.2 mmol/L Previous: 5-20 mg/dLPOCT-GLUCOSE [id number] 23:47:00 Test Item Value Reference Range Interpretation Comments POC-GLUCOSE METER 180 mg/dL 70-110 H TESTED AT [facility] 6720 (BEAKER) (test code = JULIANO REYEZ 1538) [address] BLOOD GAS, [id number] 23:46:00 Test Item Value Reference Range Interpretation [...] code = 1819) 100.0 % SODIUM NA-STAT [id number] 23:46:00 Test Item Value Reference Range Interpretation Comments SODIUM (BEAKER) (test code = 381) 134 meq/L 135-148 L GLUCOSE-STAT [id number] 23:46:00 Test Item Value Reference Range Interpretation Comments GLUCOSE RANDOM (BEAKER) (test code 119 mg/dL 70-110 H = 652) HGB/HCT (H&H) - STAT [id number] 23:46:00 Test Item Value Reference Range Interpretation Comments HEMOGLOBIN (BEAKER) (test code = 8.8 g/dL 12.0-15.0 L 410) HEMATOCRIT (BEAKER) (test code = 26.0 % 36.0-45.0 L 411) OXYGEN SATURATION, [id number] 23:45:00 Test Item Value Reference Range Interpretation Comments O2 SATURATION (MEASURED) (BEAKER) 68.1 % (test code = 1455) POTASSIUM-STAT [id number] 23:45:00 Test Item Value Reference Range Interpretation Comments POTASSIUM (BEAKER) (test code = 5.5 meq/L 3.6-5.5 379) POCT-GLUCOSE [id number] 20:58:00 Test Item Value Reference Range Interpretation Comments POC-GLUCOSE METER 133 mg/dL 70-110 H TESTED AT [place] [address] ([facility]) (test code = JULIANO Osborne [facility] 1538) [address] POCT-GLUCOSE [id number] 17:58:00 Test Item Value Reference Range Interpretation Comments POC-GLUCOSE METER 210 mg/dL 70-110 H TESTED AT [facility] 67 (BEBANNER) (test code = JULIANO Osborne [facility] 1538) [address]690 POCT-GLUCOSE [id number] 17:58:00 Test Item Value Reference Range Interpretation Comments POC-GLUCOSE METER 211 mg/dL 70-110 H TESTED AT [facility] 6720 (BEBANNER) (test code = JULIANO Osborne [facility] 1538) [address] POCT-GLUCOSE [id number] 17:58:00 Test Item Value Reference Range Interpretation Comments POC-GLUCOSE METER 232 mg/dL 70-110 H TESTED AT [place] [address] (BEAKER) (test code = JULIANO Osborne [facility] 1538) [address] POCT-GLUCOSE [id number] 17:58:00 Test Item Value Reference Range Interpretation Comments POC-GLUCOSE METER 262 mg/dL 70-110 H TESTED AT [place] [address] (BEAKER) (test code = JULIANO Osborne [facility] 1538) [address] BLOOD GAS, [id number] 17:01:00 Test Item Value Reference Range Interpretation [...] (test code = 1819) 60.0 % POTASSIUM-STAT [id number] 17:00:00 Test Item Value Reference Range Interpretation Comments POTASSIUM (BEAKER) (test code = 4.8 meq/L 3.6-5.5 379) POCT-GLUCOSE [id number] 15:52:00 Test Item Value Reference Range Interpretation Comments POC-GLUCOSE METER 267 mg/dL 70-110 H TESTED AT [place] [address] (BEAKER) (test code = JULIANO Osborne [facility] 1538) [address] POCT-GLUCOSE [id number] 14:42:00 Test Item Value Reference Range Interpretation Comments POC-GLUCOSE METER 231 mg/dL 70-110 H TESTED AT [place] [address] (BEAKER) (test code = [facility] Dylon [facility] 1538) [address] BODY FLUID CELL COUNT WITH [id number] 14:41:00 Test Item Value Reference Range Interpretation [...] FLUID (BEAKER) EDTA Tube (test code = 7393) BASIC METABOLIC [id number] 14:11:00 Test Item Value Reference Range Interpretation [...] S NOT APPLICABLE FOR DIALYSIS PATIEN TS. [id number] 14:08:00 Test Item Value Reference Range Interpretation Comments PHOSPHORUS (BEAKER) (test code = 7.2 mg/dL 2.3-4.7 H 604) [id number] 14:08:00 Test Item Value Reference Range Interpretation Comments MAGNESIUM (BEAKER) (test code = 2.6 mg/dL 1.6-2.6 627) POCT-GLUCOSE [id number] 12:49:00 Test Item Value Reference Range Interpretation Comments POC-GLUCOSE METER 224 mg/dL 70-110 H TESTED AT [facility] 6720 (BEBANNER) (test code = JULIANO [place] 1538) [address] POCT-GLUCOSE [id number] 12:49:00 Test Item Value Reference Range Interpretation Comments POC-GLUCOSE METER 248 mg/dL 70-110 H TESTED AT [facility] 6720 (SERVANDOBANNER) (test code = JULIANO [place] 1538) [address] RAD, CHEST, 1 VIEW, NON [id number] 12:32:00Reason for exam:->re-intubationShould this be performed at [...] Verified Date/Time: 05/21/2017 12:32:08 Reading Location: [facility] Radiology Reading Room POTASSIUM-STAT [id number] 12:28:00 Test Item Value Reference Range Interpretation Comments POTASSIUM (BEAKER) (test code = 5.5 meq/L 3.6-5.5 379) BLOOD GAS, [id number] 12:28:00 Test Item Value Reference Range Interpretation [...] code = 1819) 100.0 % BLOOD GAS, [id number] 10:53:00 Test Item Value Reference Range Interpretation [...] 36.0 % RAD, CHEST, 1 VIEW, NON [id number] 08:46:00while patient is intubated or has chest [...] White Verified Date/Time: 05/21/2017 08:46:27 Reading Location: [facility] Radiology Reading Room BLOOD GAS, [id number] 05:41:00 Test Item Value Reference Range Interpretation [...] (BEAKER) (test code = 1819) 40 CALCIUM, [id number] 04:35:00 Test Item Value Reference Range Interpretation Comments CALCIUM IONIZED (BEAKER) (test 1.13 mmol/L 1.12-1.27 code = 698) PH, BLOOD (BEAKER) (test code = 7.32 1810) BLOOD GAS, [id number] 04:28:00 Test Item Value Reference Range Interpretation [...] (BEAKER) (test code = 1819) 40.0 % [id number] 04:20:00 Test Item Value Reference Range Interpretation Comments PHOSPHORUS (BEAKER) (test code = 6.2 mg/dL 2.3-4.7 H 604) [id number] 04:20:00 Test Item Value Reference Range Interpretation Comments MAGNESIUM (BEAKER) (test code = 2.4 mg/dL 1.6-2.6 627) HEPATIC FUNCTION [id number] 04:20:00 Test Item Value Reference Range Interpretation [...] = 11 U/L 6-55 347) BASIC METABOLIC [id number] 04:20:00 Test Item Value Reference Range Interpretation [...] APPLICABLE FOR DIALYSIS PATIEN TS. OXYGEN SATURATION, [id number] 04:18:00 Test Item Value Reference Range Interpretation Comments O2 SATURATION (MEASURED) (BEAKER) 68.0 % (test code = 1455) LACTIC ACID, ARTERIAL, WHOLE [id number] 04:12:00 Test Item Value Reference Range Interpretation Comments LACTATE BLOOD ARTERIAL (2) 1.0 mmol/L 0.5-2.2 (BEAKER) (test code = 2874) Effective 08/02/2015: Units/Reference Range ChangeNew: 0.5-2.2 mmol/L Previous: 5-20 mg/dLCBC W/PLT COUNT & AUTO [id number] 04:00:00 Test Item Value Reference Range Interpretation [...] (BEAKER) (test code = 2801) BLOOD GAS, [id number] 00:06:00 Test Item Value Reference Range Interpretation [...] (BEAKER) (test code = 1819) 40.0 % [id number] 18:55:00 Test Item Value Reference Range Interpretation Comments PHOSPHORUS (BEAKER) (test code = 4.8 mg/dL 2.3-4.7 H 604) [id number] 18:55:00 Test Item Value Reference Range Interpretation Comments MAGNESIUM (BEAKER) (test code = 2.3 mg/dL 1.6-2.6 627) BASIC METABOLIC [id number] 18:55:00 Test Item Value Reference Range Interpretation [...] DIALYSIS PATIEN TS. LACTIC ACID, ARTERIAL, WHOLE [id number] 18:53:00 Test Item Value Reference Range Interpretation Comments LACTATE BLOOD 0.9 mmol/L 0.5-2.2 Specimen sligh tly ARTERIAL (2) (BEAKER) hemoly zed (test code = 2874) Effective 08/02/2015: Units/Reference Range ChangeNew: 0.5-2.2 mmol/L Previous: 5-20 mg/dLRAD, CHEST, 1 VIEW, NON [id number] 18:44:00Reason for exam:- >postop cardiacShould this be [...] MDReport Verified Date/Time: 05/20/2017 18:44:30 Reading Location: [address] Consult Reading Room Electronically signed by: MIGUEL LI M.D. on05/20/2017 06:44 PMCBC W/PLT COUNT & AUTO [id number] 18:38:00 Test Item Value Reference Range Interpretation [...] (BEAKER) (test code = 2801) OXYGEN SATURATION, [id number] 18:36:00 Test Item Value Reference Range Interpretation Comments O2 SATURATION (MEASURED) (BEAKER) 72.5 % (test code = 1455) From distal port of IJ central venous catheterSODIUM NA-STAT [id number] 18:30:00 Test Item Value Reference Range Interpretation Comments SODIUM (BEAKER) (test code = 381) 132 meq/L 135-148 L HGB/HCT (H&H) - STAT [id number] 18:30:00 Test Item Value Reference Range Interpretation Comments HEMOGLOBIN (BEAKER) (test code = 9.4 g/dL 12.0-15.0 L 410) HEMATOCRIT (BEAKER) (test code = 28.0 % 36.0-45.0 L 411) GLUCOSE-STAT [id number] 18:30:00 Test Item Value Reference Range Interpretation Comments GLUCOSE RANDOM (BEAKER) (test code 159 mg/dL 70-110 H = 652) BLOOD GAS, [id number] 18:30:00 Test Item Value Reference Range Interpretation [...] (test code = 1819) 60.0 % CALCIUM, [id number] 18:30:00 Test Item Value Reference Range Interpretation Comments CALCIUM IONIZED (BEAKER) (test 0.94 mmol/L 1.12-1.27 L code = 698) PH, BLOOD (BEAKER) (test code = 7.34 1810) POTASSIUM-STAT [id number] 18:28:00 Test Item Value Reference Range Interpretation [...] (test 0.0 % 0.0-5.0 code = 1414) [id number] 17:53:00 Test Item Value Reference Range Interpretation Comments ACTIVATED CLOTTING TIME 103 sec TEST ED AT [place] [address] ([facility]) (test code = JULIANO Osborne [place] [address]) [address] [id number] 17:53:00 Test Item Value Reference Range Interpretation Comments ACTIVATED CLOTTING TIME 466 sec TEST ED AT [place] [address] ([facility]) (test code = JULIANO Osborne [place] [address]) [address] [id number] 17:53:00 Test Item Value Reference Range Interpretation Comments ACTIVATED CLOTTING TIME 543 sec TEST ED AT [place] [address] ([facility]) (test code = JULIANO Osborne [place] [address]) [address] [id number] 17:53:00 Test Item Value Reference Range Interpretation Comments ACTIVATED CLOTTING TIME 549 sec TEST ED AT [place] [address] ([facility]) (test code = JULIANO Osborne [place] [address]) [address] [id number] 17:53:00 Test Item Value Reference Range Interpretation Comments ACTIVATED CLOTTING TIME 632 sec TEST ED AT [place] [address] ([facility]) (test code = [place]IANO [place] [address]) [address] [id number] 17:53:00 Test Item Value Reference Range Interpretation Comments ACTIVATED CLOTTING TIME 494 sec TEST ED AT [place] [address] ([facility]) (test code = JULIANO Osborne [place] 441) [address] [id number] 17:53:00 Test Item Value Reference Range Interpretation Comments ACTIVATED CLOTTING TIME 587 sec TEST ED AT [place] [address] ([facility]) (test code = JULIANO Osborne [place] 441) [address] [id number] 17:53:00 Test Item Value Reference Range Interpretation Comments ACTIVATED CLOTTING TIME 626 sec TEST ED AT [place] [address] ([facility]) (test code = JULIANO Osborne [place] 441) [address] [id number] 17:52:00 Test Item Value Reference Range Interpretation Comments ACTIVATED CLOTTING TIME 808 sec TEST ED AT [place] [address] ([facility]) (test code = JULIANO Osborne [place] [address]) [address] [id number] 16:54:00 Test Item Value Reference Range Interpretation Comments PARTIAL THROMBOPLASTIN TIME 40.2 seconds 22.5-36.0 H ([facility]) (test code = 760) [id number] 16:53:00 Test Item Value Reference Range Interpretation Comments FIBRINOGEN LEVEL ([facility]) (test 306 mg/dl 225-434 code = 658) PROTHROMBIN [id number] 16:50:00 Test Item Value Reference Range Interpretation Comments PROTIME (AKER) (test code = 19.6 seconds 11.7-14.7 H 759) INR ([facility]) (test code = 370) 1.7 <=5.9 RECOMMENDED COUMADIN/WARFARIN INR THERAPY RANGESSTANDARD DOSE: 2.0 - 3.0 Includes: PROPHYLAXIS forvenous thrombosis, systemic embolization; TREATMENT for venous thrombosis and/or pulmonary embolus.HIGH RISK: Target INR is 2.5-3.5 for patients with mechanical heart valves.PLATELET [id number] 16:45:00 Test Item Value Reference Range Interpretation Comments PLATELET COUNT ([facility]) (test 136 K/CU MM 150-450 L code = 756) POTASSIUM-STAT [id number] 16:15:00 Test Item Value Reference Range Interpretation Comments POTASSIUM (BEAKER) (test code = 4.9 meq/L 3.6-5.5 379) BLOOD GAS, [id number] 16:15:00 Test Item Value Reference Range Interpretation [...] code = 1819) 100.0 % SODIUM NA-STAT [id number] 16:15:00 Test Item Value Reference Range Interpretation Comments SODIUM (BEAKER) (test code = 381) 131 meq/L 135-148 L GLUCOSE-STAT [id number] 16:15:00 Test Item Value Reference Range Interpretation Comments GLUCOSE RANDOM (BEAKER) (test code 198 mg/dL 70-110 H = 652) HGB/HCT (H&H) - STAT [id number] 16:15:00 Test Item Value Reference Range Interpretation Comments HEMOGLOBIN (BEAKER) (test code = 7.5 g/dL 12.0-15.0 L 410) HEMATOCRIT (BEAKER) (test code = 22.0 % 36.0-45.0 L 411) CALCIUM, [id number] 16:14:00 Test Item Value Reference Range Interpretation Comments CALCIUM IONIZED (BEAKER) (test 0.91 mmol/L 1.12-1.27 L code = 698) PH, BLOOD (BEAKER) (test code = 7.39 1810) BLOOD GAS, [id number] 15:39:00 Test Item Value Reference Range Interpretation [...] code = 1819) 70.0 % SODIUM NA-STAT [id number] 15:39:00 Test Item Value Reference Range Interpretation Comments SODIUM (BEAKER) (test code = 381) 131 meq/L 135-148 L GLUCOSE-STAT [id number] 15:39:00 Test Item Value Reference Range Interpretation Comments GLUCOSE RANDOM (BEAKER) (test code 186 mg/dL 70-110 H = 652) HGB/HCT (H&H) - STAT [id number] 15:39:00 Test Item Value Reference Range Interpretation Comments HEMOGLOBIN (BEAKER) (test code = 7.5 g/dL 12.0-15.0 L 410) HEMATOCRIT (BEAKER) (test code = 22.0 % 36.0-45.0 L 411) POTASSIUM-STAT [id number] 15:38:00 Test Item Value Reference Range Interpretation Comments POTASSIUM (BEAKER) (test code = 5.3 meq/L 3.6-5.5 379) BLOOD GAS, [id number] 15:24:00 Test Item Value Reference Range Interpretation [...] code = 1819) 70.0 % SODIUM NA-STAT [id number] 15:24:00 Test Item Value Reference Range Interpretation Comments SODIUM (BEAKER) (test code = 381) 130 meq/L 135-148 L GLUCOSE-STAT [id number] 15:24:00 Test Item Value Reference Range Interpretation Comments GLUCOSE RANDOM (BEAKER) (test code 189 mg/dL 70-110 H = 652) HGB/HCT (H&H) - STAT [id number] 15:24:00 Test Item Value Reference Range Interpretation Comments HEMOGLOBIN (BEAKER) (test code = 6.7 g/dL 12.0-15.0 L 410) HEMATOCRIT (BEAKER) (test code = 20.0 % 36.0-45.0 L 411) POTASSIUM-STAT [id number] 15:23:00 Test Item Value Reference Range Interpretation Comments POTASSIUM (BEAKER) (test code = 5.4 meq/L 3.6-5.5 379) BLOOD GAS, [id number] 15:07:00 Test Item Value Reference Range Interpretation [...] code = 1819) 70.0 % SODIUM NA-STAT [id number] 15:07:00 Test Item Value Reference Range Interpretation Comments SODIUM (BEAKER) (test code = 381) 129 meq/L 135-148 L GLUCOSE-STAT [id number] 15:07:00 Test Item Value Reference Range Interpretation Comments GLUCOSE RANDOM (BEAKER) (test code 172 mg/dL 70-110 H = 652) HGB/HCT (H&H) - STAT [id number] 15:07:00 Test Item Value Reference Range Interpretation Comments HEMOGLOBIN (BEAKER) (test code = 7.1 g/dL 12.0-15.0 L 410) HEMATOCRIT (BEAKER) (test code = 21.0 % 36.0-45.0 L 411) POTASSIUM-STAT [id number] 15:04:00 Test Item Value Reference Range Interpretation Comments POTASSIUM (BEAKER) (test code = 5.0 meq/L 3.6-5.5 379) BLOOD GAS, [id number] 14:21:00 Test Item Value Reference Range Interpretation [...] code = 1819) 70.0 % SODIUM NA-STAT [id number] 14:21:00 Test Item Value Reference Range Interpretation Comments SODIUM (BEAKER) (test code = 381) 133 meq/L 135-148 L GLUCOSE-STAT [id number] 14:21:00 Test Item Value Reference Range Interpretation Comments GLUCOSE RANDOM (BEAKER) (test code 160 mg/dL 70-110 H = 652) HGB/HCT (H&H) - STAT [id number] 14:21:00 Test Item Value Reference Range Interpretation Comments HEMOGLOBIN (BEAKER) (test code = 7.5 g/dL 12.0-15.0 L 410) HEMATOCRIT (BEAKER) (test code = 22.0 % 36.0-45.0 L 411) POTASSIUM-STAT [id number] 14:20:00 Test Item Value Reference Range Interpretation Comments POTASSIUM (BEAKER) (test code = 4.7 meq/L 3.6-5.5 379) BLOOD GAS, [id number] 13:58:00 Test Item Value Reference Range Interpretation [...] code = 1819) 80.0 % SODIUM NA-STAT [id number] 13:58:00 Test Item Value Reference Range Interpretation Comments SODIUM (BEAKER) (test code = 381) 132 meq/L 135-148 L GLUCOSE-STAT [id number] 13:58:00 Test Item Value Reference Range Interpretation Comments GLUCOSE RANDOM (BEAKER) (test code 166 mg/dL 70-110 H = 652) HGB/HCT (H&H) - STAT [id number] 13:58:00 Test Item Value Reference Range Interpretation Comments HEMOGLOBIN (BEAKER) (test code = 7.5 g/dL 12.0-15.0 L 410) HEMATOCRIT (BEAKER) (test code = 22.0 % 36.0-45.0 L 411) POTASSIUM-STAT [id number] 13:57:00 Test Item Value Reference Range Interpretation Comments POTASSIUM (BEAKER) (test code = 4.7 meq/L 3.6-5.5 379) BLOOD GAS, [id number] 13:35:00 Test Item Value Reference Range Interpretation [...] (test code = 1819) 80.0 % GLUCOSE-STAT [id number] 13:35:00 Test Item Value Reference Range Interpretation Comments GLUCOSE RANDOM (BEAKER) (test code 130 mg/dL 70-110 H = 652) HGB/HCT (H&H) - STAT [id number] 13:35:00 Test Item Value Reference Range Interpretation Comments HEMOGLOBIN (BEAKER) (test code = 6.7 g/dL 12.0-15.0 L 410) HEMATOCRIT (BEAKER) (test code = 20.0 % 36.0-45.0 L 411) SODIUM NA-STAT [id number] 13:35:00 Test Item Value Reference Range Interpretation Comments SODIUM (BEAKER) (test code = 381) 133 meq/L 135-148 L POTASSIUM-STAT [id number] 13:34:00 Test Item Value Reference Range Interpretation Comments POTASSIUM (BEAKER) (test code = 4.2 meq/L 3.6-5.5 379) BLOOD GAS, [id number] 13:16:00 Test Item Value Reference Range Interpretation [...] code = 1819) 80.0 % SODIUM NA-STAT [id number] 13:16:00 Test Item Value Reference Range Interpretation Comments SODIUM (BEAKER) (test code = 381) 133 meq/L 135-148 L HGB/HCT (H&H) - STAT [id number] 13:16:00 Test Item Value Reference Range Interpretation Comments HEMOGLOBIN (BEAKER) (test code = 6.3 g/dL 12.0-15.0 L 410) HEMATOCRIT (BEAKER) (test code = 19.0 % 36.0-45.0 L 411) CALCIUM, [id number] 13:15:00 Test Item Value Reference Range Interpretation Comments CALCIUM IONIZED (BEAKER) (test 0.98 mmol/L 1.12-1.27 L code = 698) PH, BLOOD (BEAKER) (test code = 7.34 1810) BLOOD GAS, [id number] 13:15:00 Test Item Value Reference Range Interpretation [...] (test code = 1819) 80.0 % GLUCOSE-STAT [id number] 13:14:00 Test Item Value Reference Range Interpretation Comments GLUCOSE RANDOM (BEAKER) (test code = 92 mg/dL 70-110 652) POTASSIUM-STAT [id number] 13:14:00 Test Item Value Reference Range Interpretation Comments POTASSIUM (BEAKER) (test code = 3.9 meq/L 3.6-5.5 379) BLOOD GAS, [id number] 10:54:00 Test Item Value Reference Range Interpretation [...] 1819) 100.0 % HGB/HCT (H&H) - STAT [id number] 10:54:00 Test Item Value Reference Range Interpretation Comments HEMOGLOBIN (BEAKER) (test code = 9.3 g/dL 12.0-15.0 L 410) HEMATOCRIT (BEAKER) (test code = 27.0 % 36.0-45.0 L 411) SODIUM NA-STAT [id number] 10:54:00 Test Item Value Reference Range Interpretation Comments SODIUM (BEAKER) (test code = 381) 132 meq/L 135-148 L GLUCOSE-STAT [id number] 10:52:00 Test Item Value Reference Range Interpretation Comments GLUCOSE RANDOM (BEAKER) (test code = 94 mg/dL 70-110 652) POTASSIUM-STAT [id number] 10:52:00 Test Item Value Reference Range Interpretation Comments POTASSIUM (BEAKER) (test code = 4.0 meq/L 3.6-5.5 379) HEMOGLOBIN [id number] 09:50:00 Test Item Value Reference Range Interpretation Comments HEMOGLOBIN A1C (BEAKER) (test code = 10.6 % 4.3-6.1 H 368) PLATELET AGGREGATION: FUNCTION [id number] 08:27:00 Test Item Value Reference Range Interpretation Comments WEAK ADP 63 % 60-91 RESULT(BEAKER) (test code = 2135) PLATELET FUNCTION 60-100% indicates SCREEN INTERP (BEAKER) normal platelet (test code = 2173) function [id number] Toshia Post MD (BEAKER) (test code = (electronic signature) 8154) PLATELET COUNT AGG 198 K/CU MM 150-450 (BEAKER) (test code = 2095) for patients on clopidogrel in past two weeksPOCT-GLUCOSE [id number] 08:11:00 Test Item Value Reference Range Interpretation Comments POC-GLUCOSE METER 116 mg/dL 70-110 H TESTED AT [facility] 6720 (BEAKER) (test code = JULIANO [place] 1538) [address] [id number] 07:10:00 Test Item Value Reference Range Interpretation Comments PHOSPHORUS (BEAKER) (test code = 4.5 mg/dL 2.3-4.7 604) [id number] 07:10:00 Test Item Value Reference Range Interpretation Comments MAGNESIUM (BEAKER) (test code = 2.1 mg/dL 1.6-2.6 627) BASIC METABOLIC [id number] 07:10:00 Test Item Value Reference Range Interpretation [...] = 700) CBC W/PLT COUNT & AUTO [id number] 06:46:00 Test Item Value Reference Range Interpretation [...] PERCENT (BEAKER) (test code = 2801) CALCIUM, [id number] 06:40:00 Test Item Value Reference Range Interpretation Comments CALCIUM IONIZED (BEAKER) (test 1.06 mmol/L 1.12-1.27 L code = 698) PH, BLOOD (BEAKER) (test code = 7.39 1810) POCT-GLUCOSE [id number] 23:22:00 Test Item Value Reference Range Interpretation Comments POC-GLUCOSE METER 165 mg/dL 70-110 H TESTED AT [facility] 6720 (BEAKER) (test code = MATTHIASAMANDA Osborne [facility] 1538) [address] URINE PROTEIN ELECTROPHORESIS, [id number] 18:02:00 Test Item Value Reference Range Interpretation Comments PROTEIN, URINE 305 mg/dL 0-14 H (BEAKER) (test code = 1569) ALBUMIN URINE ELP 70.9 % (BEAKER) (test code = 1018) GAMMA GLOBULIN URINE 29.1 % (BEAKER) (test code = 1015) UPEP, ID-438 (BEAKER) No monoclonal bands (test code = 2604) detected. [id number] Rocio Galindo MD ([facility]) (test code = (electronic signature) 2607) PROTEIN ELECTROPHORESIS, [id number] 17:57:00 Test Item Value Reference Range Interpretation [...] all globulin fractions. No monoclonal bands detected. [id number] Rocio Galindo MD ([facility]) (test code = (electronic signature) 9849) PROTEIN TOTAL SERUM, 5.5 gm/dL 6.0-8.3 L SPEP (BEAKER) (test code = 2660) POCT-GLUCOSE [id number] 17:15:00 Test Item Value Reference Range Interpretation Comments POC-GLUCOSE METER 209 mg/dL 70-110 H TESTED AT [facility] 6720 (BEAKER) (test code = [place]IANO [place] 1538) [address] BLOOD GAS, [id number] 15:54:00 Test Item Value Reference Range Interpretation [...] 36.0 % RAD, CHEST, 1 VIEW, NON [id number] 14:07:00Reason for exam:->SOB, hypoxemiaShould this be performed [...] Regan Cespedes Verified Date/Time: 05/19/2017 14:07:07 Reading Location:[facility] [id number] Consult Reading Room POCT-GLUCOSE [id number] 11:26:00 Test Item Value Reference Range Interpretation Comments POC-GLUCOSE METER 262 mg/dL 70-110 H TESTED AT [facility] 6720 (BEAKER) (test code = JULIANO Osborne [place] 1538) [address] POCT-GLUCOSE [id number] 07:37:00 Test Item Value Reference Range Interpretation Comments POC-GLUCOSE METER 170 mg/dL 70-110 H TESTED AT [facility] 6720 (BEAKER) (test code = JULIANO Osborne [place] 1538) [address] CALCIUM, [id number] 06:06:00 Test Item Value Reference Range Interpretation Comments CALCIUM IONIZED (BEAKER) (test 1.05 mmol/L 1.12-1.27 L code = 698) PH, BLOOD (BEAKER) (test code = 7.41 1810) [id number] 05:38:00 Test Item Value Reference Range Interpretation Comments PHOSPHORUS (BEAKER) (test code = 3.9 mg/dL 2.3-4.7 604) [id number] 05:38:00 Test Item Value Reference Range Interpretation Comments MAGNESIUM (BEAKER) (test code = 2.2 mg/dL 1.6-2.6 627) BASIC METABOLIC [id number] 05:38:00 Test Item Value Reference Range Interpretation [...] PATIEN TS. CBC W/PLT COUNT & AUTO [id number] 05:09:00 Test Item Value Reference Range Interpretation [...] PERCENT (BEAKER) (test code = 2801) POCT-GLUCOSE [id number] 22:08:00 Test Item Value Reference Range Interpretation Comments POC-GLUCOSE METER 263 mg/dL 70-110 H TESTED AT [place] [address] (BEAKER) (test code = JULIANO Osborne [place] 1538) [address] POCT-GLUCOSE [id number] 17:20:00 Test Item Value Reference Range Interpretation Comments POC-GLUCOSE METER 233 mg/dL 70-110 H TESTED AT [place] [address] (BEAKER) (test code = JULIANO Osborne [facility] 1538) [address] POCT-GLUCOSE [id number] 08:28:00 Test Item Value Reference Range Interpretation Comments POC-GLUCOSE METER 154 mg/dL 70-110 H TESTED AT [place] [address] (BEBANNER) (test code = JULIANO Osborne [facility] 1538) [address] BASIC METABOLIC [id number] 06:41:00 Test Item Value Reference Range Interpretation [...] S NOT APPLICABLE FOR DIALYSIS PATIEN TS. [id number] 06:35:00 Test Item Value Reference Range Interpretation Comments PHOSPHORUS (BEAKER) (test code = 4.1 mg/dL 2.3-4.7 604) [id number] 06:35:00 Test Item Value Reference Range Interpretation Comments MAGNESIUM (BEAKER) (test code = 2.1 mg/dL 1.6-2.6 627) CALCIUM, [id number] 06:22:00 Test Item Value Reference Range Interpretation Comments CALCIUM IONIZED (BEAKER) (test 1.10 mmol/L 1.12-1.27 L code = 698) PH, BLOOD (BEAKER) (test code = 7.38 1810) CBC W/PLT COUNT & AUTO [id number] 06:04:00 Test Item Value Reference Range Interpretation [...] ABSOLUTE COUNT 6.15 K/ L 1.56-6.13 H ([facility]) (test code = 670) LYMPHOCYTES ABSOLUTE COUNT 2.20 K/ L 1.18-3.74 ([facility]) (test code = 414) MONOCYTES ABSOLUTE COUNT (BEAKER) 0.62 K/ L 0.24-0.36 H (test code = 415) EOSINOPHILS ABSOLUTE COUNT 0.24 K/ L 0.04-0.36 (AKER) (test code = 416) BASOPHILS ABSOLUTE COUNT (AKER) 0.06 K/ L 0.01-0.08 (test code = 417) IMMATURE GRANULOCYTES-RELATIVE 0 % 0-1 PERCENT ([facility]) (test code = 2801) POCT-GLUCOSE [id number] 03:44:00 Test Item Value Reference Range Interpretation Comments POC-GLUCOSE METER 220 mg/dL 70-110 H TESTED AT [place] [address] ([facility]) (test code = [facility] 1538) [address] POCT-GLUCOSE [id number] 18:27:00 Test Item Value Reference Range Interpretation Comments POC-GLUCOSE METER 256 mg/dL 70-110 H TESTED AT [place] [address] ([facility]) (test code = [facility] 1538) [address] POCT-GLUCOSE [id number] 15:45:00 Test Item Value Reference Range Interpretation Comments POC-GLUCOSE METER 278 mg/dL 70-110 H TESTED AT [place] [address] ([facility]) (test code = [facility] 1538) 52989 POCT-GLUCOSE [id number] 13:22:00 Test Item Value Reference Range Interpretation Comments POC-GLUCOSE METER 278 mg/dL 70-110 H TESTED AT [place] [address] ([facility]) (test code = [facility] 1538) [address] PLATELET AGGREGATION: FUNCTION [id number] 13:18:00 Test Item Value Reference Range Interpretation Comments WEAK ADP 66 % 60-91 RESULT([facility]) (test code = 2135) PLATELET FUNCTION 60-100% indicates SCREEN INTERP ([facility]) normal platelet (test code = 2173) function [id number] Rigoberto Duenas MD ([facility]) (test code = (electronic signature) 5619) PLATELET COUNT AGG 204 K/CU MM 150-450 ([facility]) (test code = 2656) POCT-GLUCOSE [id number] 08:27:00 Test Item Value Reference Range Interpretation Comments POC-GLUCOSE METER 189 mg/dL 70-110 H TESTED AT [facility] 6720 (BEAKER) (test code = [place] 1538) [address] CALCIUM, [id number] 06:12:00 Test Item Value Reference Range Interpretation Comments CALCIUM IONIZED (BEAKER) (test 1.07 mmol/L 1.12-1.27 L code = 698) PH, BLOOD (BEAKER) (test code = 7.36 1810) [id number] 05:43:00 Test Item Value Reference Range Interpretation Comments PHOSPHORUS (BEAKER) (test code = 3.6 mg/dL 2.3-4.7 604) [id number] 05:43:00 Test Item Value Reference Range Interpretation Comments MAGNESIUM (BEAKER) (test code = 2.1 mg/dL 1.6-2.6 627) BASIC METABOLIC [id number] 05:43:00 Test Item Value Reference Range Interpretation [...] PATIEN TS. CBC W/PLT COUNT & AUTO [id number] 05:05:00 Test Item Value Reference Range Interpretation [...] PERCENT (BEAKER) (test code = 2801) POCT-GLUCOSE [id number] 21:32:00 Test Item Value Reference Range Interpretation Comments POC-GLUCOSE METER 176 mg/dL 70-110 H TESTED AT [place] [address] ([facility]) (test code = [facility] 1538) [address] POCT-GLUCOSE [id number] 20:27:00 Test Item Value Reference Range Interpretation Comments POC-GLUCOSE METER 161 mg/dL 70-110 H TESTED AT [place] [address] ([facility]) (test code = [facility] 1538) [address]252 POCT-GLUCOSE [id number] 18:23:00 Test Item Value Reference Range Interpretation Comments POC-GLUCOSE METER 185 mg/dL 70-110 H TESTED AT [place] [address] ([facility]) (test code = [facility] 1538) [address] POCT-GLUCOSE [id number] 13:26:00 Test Item Value Reference Range Interpretation Comments POC-GLUCOSE METER 282 mg/dL 70-110 H TESTED AT [place] [address] ([facility]) (test code = [facility] 1538) 6[address] URINE [id number] 10:12:00 Test Item Value Reference Range Interpretation Comments CULTURE ([facility]) (test >100,000 col/mL skin code = 1095) todd POCT-GLUCOSE [id number] 09:01:00 Test Item Value Reference Range Interpretation Comments POC-GLUCOSE METER 268 mg/dL 70-110 H TESTED AT [place] [address] ([facility]) (test code = [facility] 1538) [address] CALCIUM, [id number] 05:39:00 Test Item Value Reference Range Interpretation Comments CALCIUM IONIZED (BEAKER) (test 0.84 mmol/L 1.12-1.27 L code = 698) PH, BLOOD (AKER) (test code = 7.35 2790) BASIC METABOLIC [id number] 05:07:00 Test Item Value Reference Range Interpretation [...] S NOT APPLICABLE FOR DIALYSIS PATIEN TS. [id number] 05:06:00 Test Item Value Reference Range Interpretation Comments PHOSPHORUS (BEAKER) (test code = 3.2 mg/dL 2.3-4.7 604) [id number] 05:06:00 Test Item Value Reference Range Interpretation Comments MAGNESIUM (BEAKER) (test code = 2.3 mg/dL 1.6-2.6 627) CBC W/PLT COUNT & AUTO [id number] 04:42:00 Test Item Value Reference Range Interpretation [...] = 2801) RHEUMATOID FACTOR AB, REFLEX TO [id number] 01:52:00 Test Item Value Reference Range Interpretation Comments RHEUMATOID FACTOR ([facility]) (test Negative code = 573) POCT-GLUCOSE [id number] 21:57:00 Test Item Value Reference Range Interpretation Comments POC-GLUCOSE METER 105 mg/dL 70-110 TESTED AT [facility] 67 ([facility]) (test code = [place] [address]) [address] POCT-GLUCOSE [id number] 18:11:00 Test Item Value Reference Range Interpretation Comments POC-GLUCOSE METER 312 mg/dL 70-110 H Notified Dylon Hassan MD/TESTED ([facility]) (test code = AT [facility] [address] [place] [address]) [facility] 7703 0 PET, CARDIAC PERFUSION MULTIPLE STUDIES, REST AND [id number] 16:28:00 Reason for exam:->pvcs, known cadFINAL REPORT PROCEDURE: Rest/Stress MYOCARDIAL PERFUSION PET with regadenoson\XA9\ CPT CODE: 54938 INDICATION: Defined extent and severity of known [...] is 23%. LVEF at stress is 36%. Route Jumper CT images revealed a right pleural effusion [...] pleural and pericardial effusions. 7. No previous [facility] study for comparison. NONINVASIVE RISK STRATIFICATION: The above findings are considered high risk (>3% annual mortality rate) based on the following criteria: - Severe resting left ventricular dysfunction (LVEF 35%)- Stress-induced large perfusion defect (particularly if anterior)(JACC. 2012;59(9):857-81.) Signed: Natan Lopez Verified Date/Time: 05/15/2017 16:28:12 Reading Location: [address] ReadingRoom RAD, CHEST, 1 VIEW, NON [id number] 15:56:00Reason for exam:->SOBShould this be performed at the bedside?->YesFINAL REPORT Comparison: 05/14/2017 TECHNIQUE: Single view of the chest FINDINGS: There is a small right pleural effusion with nonspecific airspace disease. This is unchanged. Left lung is grossly clear. Cardiac silhouette is enlarged. IMPRESSION: 1. No acute cardiopulmonary disease. Signed: Sixto Monk MDReport Verified Date/Time: 05/15/2017 15:56:39 [facility] POCT-GLUCOSE [id number] 12:54:00 Test Item Value Reference Range Interpretation Comments POC-GLUCOSE METER 308 mg/dL 70-110 H Notified Dylon Hassan MD/NATHAN (ROBERT) (test code = AT [facility] [address] [place] [address]) [facility] 7703 0 U/S, RENAL WITH [id number] 11:04:00Reason for exam:->tracy, htnShould this be performed [...] Hobbs Verified Date/Time: 05/15/2017 11:04:01 Reading Location: [address] Ultrasound Reading Room ANA TITER AND [id number] 10:57:00 Test Item Value Reference Range Interpretation Comments ROGER TITER (BEAKER) (test code = :160 1541) ROGER PATTERN (BEAKER) (test code = Speckled 1781) ANTI-NUCLEAR ANTIBODY (ROGER)2017-05-15 10:56:00 Test Item Value Reference Range Interpretation Comments ANTI-NUCLEAR ANTIBODY (ROGER) (BEAKER) Positive Negative A (test code = 418) CALCIUM, [id number] 06:00:00 Test Item Value Reference Range Interpretation Comments CALCIUM IONIZED (BEAKER) (test 1.07 mmol/L 1.12-1.27 L code = 698) PH, BLOOD (BEAKER) (test code = 7.28 1810) HEPATITIS PANEL, [id number] 05:01:00 Test Item Value Reference Range Interpretation Comments HEPATITIS A IGM ANTIBODY (BEAKER) Nonreactive Nonreactive (test code = 498) HEPATITIS B CORE IGM ANTIBODY Nonreactive Nonreactive (BEAKER) (test code = 645) HEPATITIS C ANTIBODY (BEAKER) Nonreactive Nonreactive (test code = 367) HEPATITIS B SURFACE ANTIGEN (2) Nonreactive Nonreactive (BEAKER) (test code = 2585) BASIC METABOLIC [id number] 04:48:00 Test Item Value Reference Range Interpretation [...] NOT APPLICABLE FOR DIALYSIS PATIEN TS. URIC [id number] 04:41:00 Test Item Value Reference Range Interpretation Comments URIC ACID (BEAKER) (test code = 10.3 mg/dL 2.6-7.2 H 773) [id number] 04:41:00 Test Item Value Reference Range Interpretation Comments MAGNESIUM (BEAKER) (test code = 2.0 mg/dL 1.6-2.6 627) [id number] 04:41:00 Test Item Value Reference Range Interpretation Comments PHOSPHORUS (BEAKER) (test code = 4.2 mg/dL 2.3-4.7 604) COMPLEMENT COMPONENT [id number] 04:38:00 Test Item Value Reference Range Interpretation Comments C4 COMPLEMENT (BEAKER) (test code = 28 mg/dL 15-57 394) COMPLEMENT COMPONENT [id number] 04:38:00 Test Item Value Reference Range Interpretation Comments C3 COMPLEMENT (BEAKER) (test code = 103 mg/dL 82-193 393) CBC W/PLT COUNT & AUTO [id number] 04:22:00 Test Item Value Reference Range Interpretation [...] LYMPHOCYTES ABSOLUTE COUNT 3.35 K/ L 1.18-3.74 ([facility]) (test code = 414) MONOCYTES ABSOLUTE COUNT (BEAKER) 0.59 K/ L 0.24-0.36 H (test code = 415) EOSINOPHILS ABSOLUTE COUNT 0.21 K/ L 0.04-0.36 (BEAKER) (test code = 416) BASOPHILS ABSOLUTE COUNT (AKER) 0.06 K/ L 0.01-0.08 (test code = 417) IMMATURE GRANULOCYTES-RELATIVE 0 % 0-1 PERCENT ([facility]) (test code = 2801) POCT-GLUCOSE [id number] 21:46:00 Test Item Value Reference Range Interpretation Comments POC-GLUCOSE METER 173 mg/dL 70-110 H TESTED AT [facility] 67 ([facility]) (test code = [facility] Dylon [facility] 1538) [address] POCT-GLUCOSE [id number] 21:46:00 Test Item Value Reference Range Interpretation Comments POC-GLUCOSE METER 154 mg/dL 70-110 H TESTED AT [facility] 67 ([facility]) (test code = [facility] 1538) [address] POCT-GLUCOSE [id number] 18:17:00 Test Item Value Reference Range Interpretation Comments POC-GLUCOSE METER 175 mg/dL 70-110 H TESTED AT [place] [address] ([facility]) (test code = [facility] 1538) [address] RAD, CHEST, 1 VIEW, NON [id number] 14:56:00Reason for exam:->SOBShould this be performed at the bedside?->YesFINAL REPORT INDICATION: SOB COMPARISON: May 13, 2017 TECHNIQUE: Chest radiograph, single view, portable technique. FINDINGS / IMPRESSION: Enlarged heart shadow, small rightpleural effusion, and pulmonary venous congestion, again demonstrated. No pneumothorax or consolidation. Osseous structures unremarkable. Signed: Thania Jean Verified Date/Time: 05/14/2017 14:56:58 Reading Location: [facility] Mammo Reading Room POCT-GLUCOSE [id number] 12:18:00 Test Item Value Reference Range Interpretation Comments POC-GLUCOSE METER 313 mg/dL 70-110 H TESTED AT [facility] 6720 (BEAKER) (test code = [place] 1538) [address] HIV-1 ANTIGEN WITH HIV-1/2 [id number] 12:07:00 Test Item Value Reference Range Interpretation Comments HIV-1 ANTIGEN WITH HIV 1\T\2 Nonreactive Nonreactive ANTIBODY (2) (BEAKER) (test code = 2586) CALCIUM, [id number] 06:37:00 Test Item Value Reference Range Interpretation Comments CALCIUM IONIZED (BEAKER) (test 1.08 mmol/L 1.12-1.27 L code = 698) PH, BLOOD (BEAKER) (test code = 7.25 7450) BASIC METABOLIC [id number] 06:26:00 Test Item Value Reference Range Interpretation [...] pg/mL 0-100 H (test code = 700) [id number] 06:25:00 Test Item Value Reference Range Interpretation Comments PHOSPHORUS (BEAKER) (test code = 5.7 mg/dL 2.3-4.7 H 604) [id number] 06:25:00 Test Item Value Reference Range Interpretation Comments MAGNESIUM (BEAKER) (test code = 1.5 mg/dL 1.6-2.6 L 627) CBC W/PLT COUNT & AUTO [id number] 06:07:00 Test Item Value Reference Range Interpretation [...] PERCENT (BEAKER) (test code = 2801) POCT-GLUCOSE [id number] 22:38:00 Test Item Value Reference Range Interpretation Comments POC-GLUCOSE METER 262 mg/dL 70-110 H TESTED AT [facility] 6720 (BEAKER) (test code = [place] 1538) [address] PROTEIN, RANDOM [id number] 22:18:00 Test Item Value Reference Range Interpretation Comments PROTEIN, URINE (BEAKER) (test code 641 mg/dL 0-14 H = 1569) CREATININE, RANDOM [id number] 22:07:00 Test Item Value Reference Range Interpretation Comments CREATININE URINE (BEAKER) (test 124.9 mg/dL code = 375) Reference Range: No NormalsURINALYSIS W/ [id number] 22:03:00 Test Item Value Reference Range Interpretation [...] 1585) SOURCE(BEAKER) (test code = Urine, Voided 7663) [id number] 19:49:00 Test Item Value Reference Range Interpretation Comments SODIUM (BEAKER) (test 136 meq/L 136-145 code = 381) POTASSIUM (BEAKER) 5.1 meq/L 3.5-5.1 Specimen slightly (test code = 379) hemolyzed CHLORIDE (BEAKER) 104 meq/L 98-107 (test code = 382) CO2 (BEAKER) (test 25 meq/L 22-29 code = 355) Call if K > 5POCT-GLUCOSE [id number] 11:37:00 Test Item Value Reference Range Interpretation Comments POC-GLUCOSE METER 293 mg/dL 70-110 H TESTED AT [place] [address] ([facility]) (test code = [facility] Dylon [facility] 1538) [address] RAD, CHEST, 1 VIEW, NON [id number] 10:22:00Reason for exam:->SOBShould this be performed at the bedside?->YesFINAL REPORT Chest one view Discussion: There is cardiomegaly and interstitial congestion. A small right-sided effusion is noted. No pneumothorax. IMPRESSIONS: Suspected CHF. Signed: Jeannette Nava Verified Date/Time: 05/13/2017 10:22:34 Reading Location: [facility] Radiology Reading Room POCT-GLUCOSE METER 2017-05-13 08:34:00 Test Item Value Reference Range Interpretation Comments POC-GLUCOSE METER 178 mg/dL 70-110 H TESTED AT [place] [address] ([facility]) (test code = MATTHIASAMANDA Dylon [facility] 1538) [address] POCT-GLUCOSE [id number] 06:53:00 Test Item Value Reference Range Interpretation Comments POC-GLUCOSE METER 167 mg/dL 70-110 H TESTED AT [place] [address] (BEAKER) (test code = [place] 1538) [address] [id number] 04:48:00 Test Item Value Reference Range Interpretation Comments BLOOD UREA NITROGEN (BEAKER) (test 36 mg/dL 7-21 H code = 354) [id number] 04:48:00 Test Item Value Reference Range Interpretation Comments SODIUM (BEAKER) (test code = 381) 139 meq/L 136-145 POTASSIUM (BEAKER) (test code = 5.2 meq/L 3.5-5.1 H 379) CHLORIDE (BEAKER) (test code = 382) 109 meq/L 98-107 H CO2 (BEAKER) (test code = 355) 23 meq/L 22-29 [id number] 04:48:00 Test Item Value Reference Range Interpretation [...] WBC 0-0 (BEAKER) (test code = 413) [id number] 23:29:00 Test Item Value Reference Range Interpretation Comments ACTIVATED CLOTTING TIME 136 sec TEST ED AT [place] [address] ([facility]) (test code = JULIANO Osborne [place] [address]) [address] [id number] 20:13:00 Test Item Value Reference Range Interpretation Comments ACTIVATED CLOTTING TIME 175 sec TEST ED AT [place] [address] ([facility]) (test code = J[place]IANO [place]borne [place] [address]) [address] [id number] 18:36:00 Test Item Value Reference Range Interpretation Comments ACTIVATED CLOTTING TIME 202 sec TEST ED AT [place] [address] ([facility]) (test code = J[place]IANO Osborne [place] [address]) [address] [id number] 18:03:00 Test Item Value Reference Range Interpretation Comments ACTIVATED CLOTTING TIME 208 sec TEST ED AT [place] [address] ([facility]) (test code = JULIANO Osborne [place] [address]) [address] BASIC METABOLIC [id number] 11:57:00 Test Item Value Reference Range Interpretation [...] NOT APPLICABLE FOR DIALYSIS PATIEN TS. PROTHROMBIN [id number] 11:15:00 Test Item Value Reference Range Interpretation [...] if on CoumadinCBC W/PLT COUNT & AUTO [id number] 11:01:00 Test Item Value Reference Range Interpretation [...] PERCENT (BEAKER) (test code = 2801) POCT-GLUCOSE [id number] 12:35:00 Test Item Value Reference Range Interpretation Comments POC-GLUCOSE METER 249 mg/dL 70-110 H TESTED AT [place] [address] ([facility]) ([facility] 1538) [address] POCT-GLUCOSE [id number] 09:10:00 Test Item Value Reference Range Interpretation Comments POC-GLUCOSE METER 155 mg/dL 70-110 H TESTED AT [place] [address] ([facility]) (test code = [facility] 1538) [address] BASIC METABOLIC [id number] 05:39:00 Test Item Value Reference Range Interpretation [...] S NOT APPLICABLE FOR DIALYSIS PATIEN TS. [id number] 05:27:00 Test Item Value Reference Range Interpretation Comments PHOSPHORUS (BEAKER) (test code = 5.0 mg/dL 2.3-4.7 H 604) [id number] 05:27:00 Test Item Value Reference Range Interpretation Comments MAGNESIUM (BEAKER) (test code = 1.6 mg/dL 1.6-2.6 627) POCT-GLUCOSE [id number] 05:25:00 Test Item Value Reference Range Interpretation Comments POC-GLUCOSE METER 144 mg/dL 70-110 H TESTED AT [place] [address] ([facility]) (test code = [facility] 1538) [address] PROTHROMBIN [id number] 04:58:00 Test Item Value Reference Range Interpretation Comments PROTIME ([facility]) (test code = 14.2 seconds 11.7-14.7 759) INR ([facility]) (test code = 370) 1.1 <=5.9 RECOMMENDED COUMADIN/WARFARIN INR THERAPY RANGESSTANDARD DOSE: 2.0 - 3.0 Includes: PROPHYLAXIS forvenous thrombosis, systemic embolization; TREATMENT for venous thrombosis and/or pulmonary embolus.HIGH RISK: Target INR is 2.5-3.5 for patients with mechanical heart valves.POCT-GLUCOSE [id number] 23:55:00 Test Item Value Reference Range Interpretation Comments POC-GLUCOSE METER 86 mg/dL 70-110 TESTED AT [place] [address] ([facility]) (test code = [facility] [address] 1538) B-TYPE NATRIURETIC FACTOR (BNP)2017-04-22 18:13:00 Test Item Value Reference Range Interpretation Comments B-TYPE NATRIURETIC PEPTIDE 1203 pg/mL 0-100 H ([facility]) (test code = 700) POCT-GLUCOSE [id number] 17:36:00 Test Item Value Reference Range Interpretation Comments POC-GLUCOSE METER 259 mg/dL 70-110 H TESTED AT [place] [address] ([facility]) (test code = [facility] 1538) [address] HEMOGLOBIN [id number] 14:24:00 Test Item Value Reference Range Interpretation Comments HEMOGLOBIN A1C (BEAKER) (test code = 10.5 % 4.3-6.1 H 368) POCT-GLUCOSE [id number] 12:34:00 Test Item Value Reference Range Interpretation Comments POC-GLUCOSE METER 207 mg/dL 70-110 H TESTED AT [facility] 6720 (BEAKER) (test code = [place] 1538) [address] [id number] 07:53:00 Test Item Value Reference Range Interpretation Comments PHOSPHORUS (BEAKER) (test code = 3.9 mg/dL 2.3-4.7 604) [id number] 07:53:00 Test Item Value Reference Range Interpretation Comments MAGNESIUM (BEAKER) (test code = 1.6 mg/dL 1.6-2.6 627) BASIC METABOLIC [id number] 07:53:00 Test Item Value Reference Range Interpretation [...] NOT APPLICABLE FOR DIALYSIS PATIEN TS. TROPONIN [id number] 07:29:00 Test Item Value Reference Range Interpretation [...] acidosis, acute neurological disease, and persistent tachyarrhythmia.PROTHROMBIN [id number] 07:01:00 Test Item Value Reference Range Interpretation Comments PROTIME (ROBERT) (test code = 13.8 seconds 11.7-14.7 759) INR ([facility]) (test code = 370) 1.1 <=5.9 RECOMMENDED COUMADIN/WARFARIN INR THERAPY RANGESSTANDARD DOSE: 2.0 - 3.0 Includes: PROPHYLAXIS forvenous thrombosis, systemic embolization; TREATMENT for venous thrombosis and/or pulmonary embolus.HIGH RISK: Target INR is 2.5-3.5 for patients with mechanical heart valves.POCT-GLUCOSE [id number] 06:28:00 Test Item Value Reference Range Interpretation Comments POC-GLUCOSE METER 198 mg/dL 70-110 H TESTED AT [facility] 6720 ([facility]) (test code = [place]IANO Dylon [place] 1538) [address] CREATINE KINASE (CK), TOTAL AND [id number] 00:49:00 Test Item Value Reference Range Interpretation Comments CREATINE KINASE TOTAL ([facility]) 69 U/L 29-200 (test code = 380) CREATINE KINASE-MB ([facility]) (test 4.3 ng/mL 0.0-6.6 code = 750) CREATINE KINASE-MB INDEX ([facility]) 6.2 % (test code = 395) CK-MB Reference Range:<6.7 Normal6.7-10.0 Borderline>10.0 AbnormalTROPONIN [id number] 00:49:00 Test Item Value Reference Range Interpretation Comments TROPONIN I ([facility]) (test code = 0.05 ng/mL 0.00-0.03 H [...] acidosis, acute neurological disease, and persistent tachyarrhythmia.POCT-GLUCOSE [id number] 20:44:00 Test Item Value Reference Range Interpretation Comments POC-GLUCOSE METER 269 mg/dL 70-110 H TESTED AT [facility] 6720 (ROBERT) (test code = [place] 1538) [address]
[2019-10-04] MEDS ORDERED: LIDOCAINE 1% MPF 5 ML VIAL ONE (17:12)
--- NOTE | 2019-10-04 17:50 | EDPHYS ---
Physician Documentation [facility] Name: Christy Priest Age: 64 yrs Sex: Female : 1955 Arrival Date: 10/04/2019 Time: 13:26 Bed 23 Private MD: REILLY Physician Alessio Parry HPI: 10/03 14:38 This 64 yrs old Female presents to ER via EMS with complaints of Laceration pm1 To Foot. 14:38 The patient has a laceration related to: smashed her left second toe between the pm1 wheelchair and a door resulting in a laceration at 2100 occurred at home. The laceration(s) is(are) located on the left second toe. Onset: The symptoms/episode began/occurred last night. Associated signs and symptoms: Pertinent negatives: deformity, numbness distal to injury, suspected foreign body. The patient has been recently seen by a physician: debridement by wound care for two ulcers on the lateral aspect of left foot. Historical: - Allergies: 13:51 Augmentin; sv 13:51 basil; sv 13:51 Clindamycin; sv 13:51 HYDROCODONE; sv 13:51 Morphine; sv 13:51 Nitroglycerin; sv 13:51 Tramadol HCl; sv 13:51 Trazodone; sv 13:51 Vancomycin; sv 13:51 Vicodin; sv - PMHx: 13:51 CHF; COPD; Diabetes - IDDM; ESRD; High Cholesterol; Hypertension; triple bypass; sv uterine cancer; - PSHx: 13:51 Cholecystectomy; Hysterectomy; leg surgery; BLE stents; left foot; sv - Immunization history:: Adult Immunizations up to date. - Social history:: Smoking status: unknown. ROS: 14:38 Constitutional: Negative for fever, chills, and weight loss, Cardiovascular: Negative pm1 for chest pain, palpitations, and edema, Respiratory: Negative for shortness of breath, cough, wheezing, and pleuritic chest pain, Abdomen/GI: Negative for abdominal pain, nausea, vomiting, diarrhea, and constipation, Back: Negative for injury and pain. 14:38 Neuro: Negative for headache, weakness, numbness, tingling, and seizure. 14:38 MS/extremity: Positive for laceration, of the left second toe, Negative for decreased range of motion, deformity. 14:38 Skin: Positive for laceration(s), of the left first toe. Exam: 14:38 Constitutional: This is a well developed, well nourished patient who is awake, alert, pm1 and in no acute distress. Head/Face: Normocephalic, atraumatic. 14:38 MS/ Extremity: Pulses equal, no cyanosis. Neurovascular intact. Full, normal range of motion. 14:38 Cardiovascular: Exam negative for acute changes, Rate: normal, Rhythm: regular, Pulses: no pulse deficits are appreciated. 14:38 Respiratory: Exam negative for acute changes, respiratory distress, shortness of breath. 14:38 Skin: Appearance: normal except for affected area, injury, laceration(s), that can be described as clean, no foreign body, irregular, with mild bleeding, skin avulsion to distal tip of second left toes and laceration to medial aspect of left second toe going under nail and nail bed creating a flap approximately 1 cm in length. 14:38 Neuro: Exam negative for acute changes, Orientation: is normal, Motor: is normal, moves all fours. Vital Signs: 14:02 BP 164 / 79; Pulse 67; Resp 20; Temp 97.9(O); Pulse Ox 99% on R/A; Pain 3/10; ls4 Laceration: 17:46 Wound Repair of 1cm ( 0.4in ) subcutaneous laceration to left second toe. Irregularly pm1 shaped.. Distal neuro/vascular/tendon intact. Anesthesia: Local anesthetic administered with 1 mls of 1% lidocaine. Wound prep: Extensive cleansing with hibiclenz by nurse, Wound irrigation with saline by nurse, Wound explored extensively, Copious irrigation. Skin closed with 2 5-0 Prolene using simple sutures and sterile technique. Dressed with Neosporin, 4x4's. Patient tolerated well. MDM: 13:28 Patient medically screened. pm1 17:46 Data reviewed: vital signs. Data interpreted: Pulse oximetry: on room air is 99 %. pm1 Interpretation: normal. Counseling: I had a detailed discussion with the patient and/or guardian regarding: the historical points, exam findings, and any diagnostic results supporting the discharge/admit diagnosis, radiology results, the need for outpatient follow up, a director security management, wound care MD, to return to the emergency department if symptoms worsen or persist or if there are any questions or concerns that arise at home. 18:51 ED course: CAR DROPPER aware reviewed. pm1 10/03 14:30 Order name: Foot Left 3 View; Complete Time: 14:58 EDCO 10/03 16:57 Order name: Prolene, Sutures; Complete Time: 17:07 pm1 10/03 16:57 Order name: Dressing - Wound; Complete Time: 17:07 pm1 10/03 16:57 Order name: Gloves, Sterile; Complete Time: 17:07 pm1 10/03 16:57 Order name: Setup Suture Tray; Complete Time: 17:07 pm1 10/03 17:51 Order name: Post-op Orthopedic Shoe; Complete Time: 18:07 pm1 Administered Medications: 17:06 Drug: Lidocaine (1 %) 1 application Volume: 5 ml; Route: Infiltration; ls4 17:07 Not Given (Duplicate Order): Tetanus-Diphtheria Toxoid Adult 0.5 ml IM once ls4 18:20 Drug: Tylenol #3 (300 mg-30 mg) 1 tablet Route: PO; ls4 Disposition: 20:58 Co-signature as Attending Physician, Alessio Parry MD I agree with the assessment and the [facility] plan of care. Disposition: 10/04/19 17:50 Discharged to Home. Impression: Laceration without foreign body of left lesser toe(s) without damage to nail. - Condition is Stable. - Discharge Instructions: Laceration Care, Adult. - Prescriptions for Bactrim DS 800- 160 mg Oral Tablet - take 1 tablet by ORAL route every 12 hours for 10 days; 20 tablet. Tylenol- Codeine #3 300-30 mg Oral Tablet - take 2 tablets by ORAL route every 6 hours As needed; 20 tablet. - Medication Reconciliation Form, Thank You Letter, Antibiotic Education, Prescription Opioid Use form. - Follow up: Emergency Department; When: As needed; Reason: Worsening of condition. Follow up: Private Physician; When: 2 - 3 days; Reason: Recheck today's complaints, Continuance of care, Re-evaluation by your physician. - Problem is new. - Symptoms have improved. Signatures: Dispatcher [employer] Edith Diaz RN RN sv Anderson, Corey, MD MD cha Marinas, Patrick, AUTOMOTIVE STARTER REPAIRER AUTOMOTIVE STARTER REPAIRER pm1 Brandi Hay RN RN ls4 Corrections: (The following items were deleted from the chart) 14:31 13:43 Foot Right 3 View+RAD.RAD.BRZ ordered. EDMS EDMS 18:21 17:50 10/04/2019 17:50 Discharged to Home. Impression: Laceration without foreign body ls4 of left lesser toe(s) without damage to nail. Condition is Stable. Forms are Medication Reconciliation Form, Thank You Letter, Antibiotic Education, Prescription Opioid Use. Follow up: Emergency Department; When: As needed; Reason: Worsening of condition. Follow up: Private Physician; When: 2 - 3 days; Reason: Recheck today's complaints, Continuance of care, Re-evaluation by your physician. Problem is new. Symptoms have improved. pm1 19:22 18:21 10/04/2019 17:50 Discharged to Home. Impression: Laceration without foreign body ls4 of left lesser toe(s) without damage to nail. Condition is Stable. Discharge Instructions: Laceration Care, Adult. Prescriptions for Bactrim DS 800-160 mg Oral Tablet - take 1 tablet by ORAL route every 12 hours for 10 days; 20 tablet. and Forms are Medication Reconciliation Form, Thank You Letter, Antibiotic Education, Prescription Opioid Use. Follow up: Emergency Department; When: As needed; Reason: Worsening of condition. Follow up: Private Physician; When: 2 - 3 days; Reason: Recheck today's complaints, Continuance of care, Re-evaluation by your physician. Problem is new. Symptoms have improved. ls4
--- NOTE | 2019-10-04 17:50 | ER ---
Nurse's Notes [facility] Name: Christy Priest Age: 64 yrs Sex: Female : 1955 Arrival Date: 10/04/2019 Time: 13:26 Bed 23 Private MD: Diagnosis: Laceration without foreign body of left lesser toe(s) without damage to nail Presentation: 10/03 13:49 Chief complaint: EMS states: left toe/foot laceration that happened last night after sv getting in caught in her wheelchair. Pt is on blood thinners. Coronavirus screen: Proceed with normal triage. Patient denies a cough. Patient denies shortness of breath or difficulty breathing. Patient denies measured and/or subjective temperature greater than 100.4F prior to today's visit. Patient denies travel on a cruise ship or to a country the [facility] currently lists as an affected area. Patient denies contact with known and/or suspected case of COVID-19. Ebola Screen: No symptoms or risks identified at this time. Complicating Factors: There are no complicating factors for this patient. Risk Assessment: Do you want to hurt yourself or someone else? Patient reports no desire to harm self or others. Onset of symptoms was October 03, 2019. 13:49 Method Of Arrival: EMS: [facility] sv 13:49 Acuity: DENNY 3 sv 15:52 Initial Sepsis Screen: Does the patient meet any 2 criteria? No. Patient's initial ls4 sepsis screen is negative. Does the patient have a suspected source of infection? No. Patient's initial sepsis screen is negative. Triage Assessment: 15:52 General: Appears ill, unkempt, Behavior is fussy. Pain:. ls4 Historical: - Allergies: 13:51 Augmentin; sv 13:51 basil; sv 13:51 Clindamycin; sv 13:51 HYDROCODONE; sv 13:51 Morphine; sv 13:51 Nitroglycerin; sv 13:51 Tramadol HCl; sv 13:51 Trazodone; sv 13:51 Vancomycin; sv 13:51 Vicodin; sv - PMHx: 13:51 CHF; COPD; Diabetes - IDDM; ESRD; High Cholesterol; Hypertension; triple bypass; sv uterine cancer; - PSHx: 13:51 Cholecystectomy; Hysterectomy; leg surgery; BLE stents; left foot; sv - Immunization history:: Adult Immunizations up to date. - Social history:: Smoking status: unknown. Screenin/05 14:00 Abuse screen: Denies threats or abuse. Nutritional screening: No deficits noted. ls4 Tuberculosis screening: No symptoms or risk factors identified. Fall Risk None identified. Assessment: 10/03 14:09 General: Appears ill, unkempt. Musculoskeletal: Amputation of left first toe. Capillary ls4 refill < 3 seconds. Injury Description: Laceration is. 15:51 Reassessment: Patient appears in no apparent distress at this time. Patient and/or ls4 family updated on plan of care and expected duration. Pain level reassessed. Patient is alert, oriented x 3, equal unlabored respirations, skin warm/dry/pink. 16:00 Neuro: Level of Consciousness is awake, alert, obeys commands. Respiratory: Airway is ls4 patent Respiratory effort is even, unlabored, Respiratory pattern is regular. Vital Signs: 14:02 BP 164 / 79; Pulse 67; Resp 20; Temp 97.9(O); Pulse Ox 99% on R/A; Pain 3/10; ls4 ED Course: 10/02 14:00 Patient has correct armband on for positive identification. Bed in low position. Call ls4 light in reach. Side rails up X2. Pulse ox on. NIBP on. Verbal reassurance given. 14:00 No provider procedures requiring assistance completed. ls4 10/03 13:26 Patient arrived in ED. sv 13:28 Quan Hebert NP is PHCP. pm1 13:28 Alessio Parry MD is Attending Physician. pm1 13:44 Tsering Underwood, GUILHERME is Primary Nurse. iw 13:50 Triage completed. sv 14:33 Foot Left 3 View In Process Unspecified. EDMS Administered Medications: 17:06 Drug: Lidocaine (1 %) 1 application Volume: 5 ml; Route: Infiltration; ls4 17:07 Not Given (Duplicate Order): Tetanus-Diphtheria Toxoid Adult 0.5 ml IM once ls4 18:20 Drug: Tylenol #3 (300 mg-30 mg) 1 tablet Route: PO; ls4 Outcome: 17:50 Discharge ordered by . pm1 18:21 Patient left the ED. ls4 19:22 Patient left the ED. ls4 Signatures: Dispatcher [employer] EDMS Katty, Edith, RN RN Tsering Richard, RN RN iw Quan Hebert, LONG LINES OPERATOR LONG LINES OPERATOR pm1 Brandi Hay RN RN ls4
[2019-10-04] MEDS ORDERED: CODEINE 30MG/APAP 300MG TAB ONE (18:18)
[2019-10-04 19:29] VITALS: BP 164/79; TEMP 97.9; O2SAT 99
== END 2019-10-04 19:22 | disposition home or self-care (01) ==
LOC: ER 13:17
PROC: 0JQR0ZZ Repair Left Foot Subcutaneous Tissue and Fascia, Open Approach (ICD-10-PCS; principal; 2019-10-04)
DX: S91.115A Laceration without foreign body of left lesser toe(s) without damage to nail, initial encounter (principal); W45.8XXA Other foreign body or object entering through skin, initial encounter; Y93.89 Activity, other specified; Y92.009 Unspecified place in unspecified non-institutional (private) residence as the place of occurrence of the external cause; Z23 Encounter for immunization; I12.0 Hypertensive chronic kidney disease with stage 5 chronic kidney disease or end stage renal disease; E11.22 Type 2 diabetes mellitus with diabetic chronic kidney disease; N18.6 End stage renal disease; Z88.1 Allergy status to other antibiotic agents; Z88.3 Allergy status to other anti-infective agents; Z88.5 Allergy status to narcotic agent; Z88.8 Allergy status to other drugs, medicaments and biological substances; Z91.018 Allergy to other foods
CPT/HCPCS: 99284

== ENCOUNTER 2019-10-11 16:03 | Observation (INO) | payer MEDICAID ==
[2019-10-11 16:58] LABS: Absolute Lymphocytes (CBC) 1.9 K/uL (0.7-4.9); Basophils % 0.8 % (0-1.3); Hematocrit 23.2 % (36.0-45.0); Lymphocytes % 31.3 % (15.3-44.8); MPV 7.5 fL (7.6-11.3); RBC Red Blood Cell Count 2.64 M/uL (3.86-4.86)
--- OUTSIDE RECORDS SUMMARY | 2019-10-11 17:04 | XMS REPORT | Clinical Summary ---
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 05/19/2017 [...] (1 1961 of 1 - PPSV23) DIABETIC EYE EXAM 1965 DIABETIC FOOT EXAM 1965 URINE MICROALBUMIN 1965 CERVICAL CANCER SCREENING PAP ONLY (Age 1203/30/1976 21-65) HEMOGLOBIN A1C 08/16/2017 05/19/2017, 04/22/2017 INFLUENZA VACCINE (#1) 2019 Implants Implanted Type Area Corporate Affairs Manager Device Shelf Model / Identifier Expiration Serial / Date Lot Device Clsr Angio-Seal Vip 8fr [id number] - [id number] Cardiovascular N/A: [employer] 01/28/2018 [id number] / Implanted: Qty: 1 on 05/12/2017 by Sandra Gaytan MD Groin MED:CARDIAC / SURG [id number] Grft Eptfe-Heparin Rng [id number] - [id number] Graft/P atch Right: SUHAS MATHEW & 04/09/2021 [id number] / Implanted: Qty: 1 on 08/05/2017 by Mariela Ramirez MD Leg ASSC:MED PRDT [id number] / N/A Results Not on fileafter 10/10/2018 Insurance Payer Benefit Plan / Group Subscriber ID Type Phone A ddress [place] MED[place]ID [place] xxxxxxxxx Advance Directives For more information, please contact:[place] [address] [place], [place] [phone] Code Status Date Activated Date Inactivated Comments [...]
[2019-10-11 17:10] LABS: Protime INR 1.28
--- OUTSIDE RECORDS SUMMARY | 2019-10-11 17:15 | XMS REPORT | Continuity of Care Document ---
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, disorder, with with long-term long-term current current use of use of insulin insulin Smoker Smoker Disease Active [facility] 00 Center Frequent Frequent Disease Active [facility] PVCs PVCs 2-12 [facility] - 00:00: Medical 00 [place] Essential Essential Problem Active [facility] (primary) (primary) Luke s - hypertensi hypertensi Me moria on on l [facility] ent Clinics Depression Depression Problem Active [facility] , , [facility] - unspecifie unspecifie Me moria d d l depression depression Ou tpati type type ent Clinics History of History of Problem Active [facility] cancer cancer [facility] ent Clinics Primary Primary Problem Active [facility] insomnia insomnia [facility] Clinics Chronic Chronic Problem Active [facility] acquired acquired [facility] - lymphedema lymphedema Me moria [facility] ent Clinics Chronic Chronic Diagnosis Active CHI [...] diastolic Luke s - congestive congestive Me [facility] heart heart l failure, failure, Outpat i NYHA class NYHA class en t 2 2 Clinics Chronic Chronic Problem Active [facility] obstructiv obstructiv Janna kes - e e Memoria pulmonary pulmonary l disease, disease, Outpat i unspecifie unspecifie en t d COPD d COPD 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 [facility] 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 current [facility] - use of use of Memoria insulin insulin l [facility] ent Clinics History of History of Problem Active [facility] stroke stroke [facility] ent Clinics 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2 [...] St disease disease [facility] ent Clinics Allergies, Adverse Reactions, Alerts [...] Analogue adverse 00:00: Medical s reaction 00 [place] s Vancomyc Adverse Active vomiting [facility] in HCl Reaction [facility] ent Clinics Nitrogly Adverse Active vomiting [facility] cerin Reaction [facility] ent Clinics Morphine Adverse Active headache, [facility] Sulfate Reaction breathing Luke s - Memoria l [facility] ent [facility] Clindamy Adverse Active vomiting [facility] riley HCl Reaction [facility] ent [facility] Family History Family Member Diagnosis Comments Start Date Stop Date Source Natural father COPD [facility] Natural father Cancer [facility] Natural father Hypertension [facility] Natural mother No Known Problem [facility] Natural sister Asthma [facility] Natural sister COPD [facility] Social History Social Habit Start Date Stop Date Quantity Comments Source Sex Assigned At [facility] Cigarettes smoked 2017-09-02 2017-09-02 [facility] - current (pack per 00:00:00 00:00:00 Medical Center day) - Reported Cigarette 2017-09-02 2017-09-02 [facility] - pack-years 00:00:00 00:00:00 [facility] Center History of tobacco 2017-05-12 Current smoker [facility] use 00:[facility]00 [facility] Center Smoking Status Start Date Stop Date Source Former smoker 2017-09-02 00:00:00 2017-09-02 00:00:[address] [facility] Medications Ordered Filled [...] Inject [facility] detemir 3-04 0.05 mLs [facility] - (LEVEMIR 00:00: (5 Units Medic al [...] by mouth [facility] - tablet 20:09: daily. [address] Trazodone Trazodone Yes Franki TAKE [address] HCl HCl Jas TABLET BY [facility] - MOUTH Memoria EVERYDAY l AT BEDTIME [facility] Clinics Isosorbide Isosorbide Yes Franki TAKE [address] [facility] Mononitrate Mononitrate Jas TABLET BY [facility] - ER ER MOUTH Memoria EVERY DAY l [facility] Clinics NIFEdipine NIFEdipine Yes Franki TAKE [address] [facility] ER ER Jas TABLET BY [facility] - MOUTH Memoria EVERY DAY l [facility] Clinics BuPROPion BuPROPion Yes Franki TAKE [address] HCl HCl Jas TABLET BY [facility] - MOUTH Memoria EVERY DAY l [facility] Clinics Acetaminoph Acetaminoph Yes Franki (Schedule [facility] en-Codeine en-Codeine Jas III Drug) [facility]ukes - #3 #3 TAKE 1 Memoria TABLET [...] Comments Source Future Scheduled 2019-11-30 INFLUENZA VACCINE (#1) [facility] - Test 00:00:00 [code = INFLUENZA Medical Ce nter VACCINE (#1)] Future Scheduled 2017-08-[address] Janna kes - Test 00:00:00 measurement Medical Center (procedure) [code = 55054505] Future Scheduled [address] [facility] - Test 00:00:00 malignant [facility] cervix (procedure) [code = 746288136] Future Scheduled 1965 DIABETIC EYE EXAM [facility] - Test 00:00:00 [code = DIABETIC EYE Medical Center EXAM] Future Scheduled [address] [facility] - Test 00:00:00 examination Medical Center (regime/therapy) [code = 136571551] Future Scheduled 1965 Urine screening for [facility] - Test 00:00:00 protein (procedure) Medical Center [code = 556512860] Future Scheduled [address] [facility] - Test 00:00:00 2-64 YEARS AT RISK (1 Medica l Center of 1 - PPSV23) [code = PNEUMOCOCCAL VACCINE 2-64 YEARS AT RISK (1 of 1 - PPSV23)] Future Scheduled [address] [facility] - Test 00:00:00 malignant neoplasm of Medica l Center breast (procedure) [code = 579973955] Future Scheduled [address] [facility] - Test 00:00:00 malignant neoplasm of Medica l Center colon (procedure) [code = 609356031] Encounters Start End Encounter Admission Attending Care Care Encounter Source Date/Time Date/Time Type Type Clinicians Facility Department ID 2018-11-17 2018-11-17 Outpatient Alison Wilson [id number] 11:30[facility]00 11:30:00 [facility] Medicine Medicine Outpati ent Clinics 2018-10-06 2018-10-06 Outpatient Alison Wilson [id number] 16[facility]14:00 16:14:00 [facility] Medicine Medicine Outpati ent Clinics 2018-09-28 2018-09-28 Outpatient Alison Wilson [id number] 10:30:00 10:30:00 [facility] Medicine [facility] Clin[facility] Results Test Description Test Time Test Comments Results Result Comments Source POCT-GLUCOSE METER 2017-09-05 17:13:00 Test Item Value Reference Range Interpretation Comme nts POC-GLUCOSE METER (BEAKER) (test 220 mg/dL 70-110 H [facility] 1538) [facility] 7703 0 BASIC METABOLIC [id number] 15:47:00 Test Item Value Reference Range Interpretation [...] NOT APPLICABLE FOR DIALYSIS PATIEN TS. POCT-GLUCOSE [id number] 11:30:00 Test Item Value Reference Range Interpretation Comments POC-GLUCOSE METER 268 mg/dL 70-110 H TESTED AT [facility] 6720 (BEAKER) (test code = MATTHIASMD Dylon [facility] 1538) [address] POCT-GLUCOSE [id number] 07:08:00 Test Item Value Reference Range Interpretation Comments POC-GLUCOSE METER 208 mg/dL 70-110 H TESTED AT [facility] 6720 (BEAKER) (test code = JULIANO Dylon [facility] 1538) [address] CALCIUM, [id number] 06:47:00 Test Item Value Reference Range Interpretation Comments CALCIUM IONIZED (BEAKER) (test 1.11 mmol/L 1.12-1.27 L code = 698) PH, BLOOD (BEAKER) (test code = 7.40 1810) BASIC METABOLIC [id number] 06:40:00 Test Item Value Reference Range Interpretation [...] S NOT APPLICABLE FOR DIALYSIS PATIEN TS. [id number] 06:33:00 Test Item Value Reference Range Interpretation Comments PHOSPHORUS (BEAKER) (test code = 5.1 mg/dL 2.3-4.7 H 604) [id number] 06:33:00 Test Item Value Reference Range Interpretation Comments MAGNESIUM (BEAKER) (test code = 2.0 mg/dL 1.6-2.6 627) LACTIC ACID, VENOUS, WHOLE [id number] 06:02:00 Test Item Value Reference Range Interpretation Comments LACTATE BLOOD VENOUS (2) (BEAKER) 0.8 mmol/L 0.5-2.2 (test code = 2872) Effective 08/02/2015: Units/Reference Range ChangeNew: 0.5-2.2 mmol/L Previous: 5-20 mg/dLCBC W/PLT COUNT & AUTO [id number] 05:54:00 Test Item Value Reference Range Interpretation [...] PERCENT (BEAKER) (test code = 2801) POCT-GLUCOSE [id number] 21:30:00 Test Item Value Reference Range Interpretation Comments POC-GLUCOSE METER 248 mg/dL 70-110 H TESTED AT [place] [address] ([facility]) (test code = JULIANO [place] 1538) [address] RAD, [id number] 21:22:00Reason for exam:->fall, tailbone painFINAL REPORT RAD, [...] Talbot Verified Date/Time: 09/04/2017 21:22:03 Reading Location: [address] Reading Room POCT-GLUCOSE [id number] 17:37:00 Test Item Value Reference Range Interpretation Comments POC-GLUCOSE METER 222 mg/dL 70-110 H TESTED AT [place] [address] ([facility]) (test code = JULIANO Osborne [place] 1538) [address] POCT-GLUCOSE [id number] 13:55:00 Test Item Value Reference Range Interpretation Comments POC-GLUCOSE METER 194 mg/dL 70-110 H TESTED AT [place] [address] ([facility]) (test code = JULIANO Osborne [facility] 1538) [address] POCT-GLUCOSE [id number] 12:34:00 Test Item Value Reference Range Interpretation Comments POC-GLUCOSE METER 229 mg/dL 70-110 H TESTED AT [place] [address] ([facility]) (test code = JULIANO Osborne [place] 1538) [address] POCT-GLUCOSE [id number] 08:00:00 Test Item Value Reference Range Interpretation Comments POC-GLUCOSE METER 159 mg/dL 70-110 H TESTED AT [facility] 6720 (BEAKER) (test code = JULIANO [place] 1538) [address] CALCIUM, [id number] 06:00:00 Test Item Value Reference Range Interpretation Comments CALCIUM IONIZED (BEAKER) (test 1.05 mmol/L 1.12-1.27 L code = 698) PH, BLOOD (BEAKER) (test code = 7.45 1810) [id number] 05:59:00 Test Item Value Reference Range Interpretation Comments PHOSPHORUS (BEAKER) (test code = 4.8 mg/dL 2.3-4.7 H 604) [id number] 05:59:00 Test Item Value Reference Range Interpretation Comments MAGNESIUM (BEAKER) (test code = 2.0 mg/dL 1.6-2.6 627) BASIC METABOLIC [id number] 05:59:00 Test Item Value Reference Range Interpretation [...] = 380) CBC W/PLT COUNT & AUTO [id number] 05:32:00 Test Item Value Reference Range Interpretation [...] 417) IMMATURE GRANULOCYTES-RELATIVE 0 % 0-1 PERCENT ([facility]) (test code = 2801) POCT-GLUCOSE [id number] 20:36:00 Test Item Value Reference Range Interpretation Comments POC-GLUCOSE METER 211 mg/dL 70-110 H TESTED AT [place] [address] ([facility]) (test code = JULIANO Osborne [facility] 1538) [address] CREATININE, RANDOM [id number] 19:55:00 Test Item Value Reference Range Interpretation Comments CREATININE URINE (BEAKER) (test 16.1 mg/dL code = 375) Reference Range: No NormalsPROTEIN, RANDOM [id number] 19:55:00 Test Item Value Reference Range Interpretation Comments PROTEIN, URINE (BEAKER) (test code 102 mg/dL 0-14 H = 1569) POCT-GLUCOSE [id number] 18:04:00 Test Item Value Reference Range Interpretation Comments POC-GLUCOSE METER 177 mg/dL 70-110 H TESTED AT [place] [address] ([facility]) (test code = [facility] 1538) [address] POCT-GLUCOSE [id number] 11:59:00 Test Item Value Reference Range Interpretation Comments POC-GLUCOSE METER 244 mg/dL 70-110 H TESTED AT [place] [address] ([facility]) (test code = [facility] Dylon [facility] 1538) [address] POCT-GLUCOSE [id number] 07:53:00 Test Item Value Reference Range Interpretation Comments POC-GLUCOSE METER 160 mg/dL 70-110 H TESTED AT [place] [address] ([facility]) (test code = [facility] 1538) [address] BASIC METABOLIC [id number] 05:29:00 Test Item Value Reference Range Interpretation [...] S NOT APPLICABLE FOR DIALYSIS PATIEN TS. [id number] 05:21:00 Test Item Value Reference Range Interpretation Comments MAGNESIUM (BEAKER) (test code = 2.1 mg/dL 1.6-2.6 627) HEPATIC FUNCTION [id number] 05:21:00 Test Item Value Reference Range Interpretation [...] code = 23 U/L 6-55 347) TROPONIN [id number] 05:18:00 Test Item Value Reference Range Interpretation [...] PERCENT (BEAKER) (test code = 2801) TROPONIN [id number] 23:40:00 Test Item Value Reference Range Interpretation Comments TROPONIN I (ROBERT) (test code = 0.04 ng/mL 0.00-0.03 H [...] acidosis, acute neurological disease, and persistent tachyarrhythmia.POCT-GLUCOSE [id number] 22:51:00 Test Item Value Reference Range Interpretation Comments POC-GLUCOSE METER 214 mg/dL 70-110 H TESTED AT [facility] 6720 (ROBERT) (test code = JULIANO [place] 1538) [address] RAD, CHEST, 1 VIEW, NON [id number] 21:42:00Reason for exam:->CHEST PAINShould this be performed at the bedside?->YesFINAL REPORT RAD, CHEST, 1 VIEW, NON DEPT INDICATION: CHEST PAIN COMPARISON: Chest x-ray 4 weeks ago TECHNIQUE: Single frontal view of the chest. IMPRESSION:Cardiomegaly.Mild pulmonary interstitial edema with a small right- sided effusion.No acute osseous abnormality. Signed: Kristin Abraham MDReport Verified Date/Time: 09/02/2017 21:42:11 Reading Location: [address] Reading Room CREATININE, RANDOM [id number] 21:10:00 Test Item Value Reference Range Interpretation Comments CREATININE URINE (BEAKER) (test 35.5 mg/dL code = 375) Reference Range: No NormalsSODIUM, RANDOM [id number] 21:10:00 Test Item Value Reference Range Interpretation Comments SODIUM URINE (BEAKER) (test code = 80 meq/L 243) Reference Range: No NormalsURINALYSIS W/ [id number] 20:59:00 Test Item Value Reference Range Interpretation [...] code = 514) SOURCE(BEAKER) (test code = 1379) BASIC METABOLIC [id number] 16:49:00 Test Item Value Reference Range Interpretation [...] S NOT APPLICABLE FOR DIALYSIS PATIEN TS. [id number] 16:38:00 Test Item Value Reference Range Interpretation [...] (BEAKER) (test code = 700) BASIC METABOLIC [id number] 13:43:00 Test Item Value Reference Range Interpretation [...] NOT APPLICABLE FOR DIALYSIS PATIEN TS. POCT-GLUCOSE [id number] 12:44:00 Test Item Value Reference Range Interpretation Comments POC-GLUCOSE METER 283 mg/dL 70-110 H TESTED AT [facility] 6720 (BEAKER) (test code = JULIANO [place] 1538) [address] CALCIUM, [id number] 07:03:00 Test Item Value Reference Range Interpretation Comments CALCIUM IONIZED (BEAKER) (test 1.02 mmol/L 1.12-1.27 L code = 698) PH, BLOOD (BEAKER) (test code = 7.43 1810) [id number] 05:28:00 Test Item Value Reference Range Interpretation Comments PHOSPHORUS (BEAKER) (test code = 3.3 mg/dL 2.3-4.7 604) [id number] 05:28:00 Test Item Value Reference Range Interpretation Comments MAGNESIUM (BEAKER) (test code = 1.5 mg/dL 1.6-2.6 L 627) BASIC METABOLIC [id number] 05:28:00 Test Item Value Reference Range Interpretation [...] PATIEN TS. CBC W/PLT COUNT & AUTO [id number] 05:06:00 Test Item Value Reference Range Interpretation [...] PERCENT (BEAKER) (test code = 2801) POCT-GLUCOSE [id number] 21:08:00 Test Item Value Reference Range Interpretation Comments POC-GLUCOSE METER 202 mg/dL 70-110 H TESTED AT [facility] 6720 (BEAKER) (test code = [facility] Dylon [place] 1538) [address] POCT-GLUCOSE [id number] 16:50:00 Test Item Value Reference Range Interpretation Comments POC-GLUCOSE METER 287 mg/dL 70-110 H TESTED AT [facility] 6720 (BEAKER) (test code = [facility] [place] 1538) [address] POCT-GLUCOSE [id number] 12:21:00 Test Item Value Reference Range Interpretation Comments POC-GLUCOSE METER 213 mg/dL 70-110 H TESTED AT [facility] 6720 ([facility] (test code = [facility] 1538) [address] POCT-GLUCOSE [id number] 08:28:00 Test Item Value Reference Range Interpretation Comments POC-GLUCOSE METER 178 mg/dL 70-110 H TESTED AT [facility] 6720 (BEAKER) (test code = [facility] 1538) [address] CALCIUM, [id number] 07:06:00 Test Item Value Reference Range Interpretation Comments CALCIUM IONIZED (BEAKER) (test 0.99 mmol/L 1.12-1.27 L code = 698) PH, BLOOD (BEAKER) (test code = 7.42 1810) [id number] 05:37:00 Test Item Value Reference Range Interpretation Comments PHOSPHORUS (BEAKER) (test code = 3.5 mg/dL 2.3-4.7 604) [id number] 05:37:00 Test Item Value Reference Range Interpretation Comments MAGNESIUM (BEAKER) (test code = 1.6 mg/dL 1.6-2.6 627) BASIC METABOLIC [id number] 05:37:00 Test Item Value Reference Range Interpretation [...] PATIEN TS. CBC W/PLT COUNT & AUTO [id number] 05:07:00 Test Item Value Reference Range Interpretation [...] LYMPHOCYTES ABSOLUTE COUNT 2.72 K/ L 1.18-3.74 (BEAKER) (test code = 414) MONOCYTES ABSOLUTE COUNT (BEAKER) 0.48 K/ L 0.24-0.36 H (test code = 415) EOSINOPHILS ABSOLUTE COUNT 0.26 K/ L 0.04-0.36 (BEAKER) (test code = 416) BASOPHILS ABSOLUTE COUNT (BEAKER) 0.04 K/ L 0.01-0.08 (test code = 417) IMMATURE GRANULOCYTES-RELATIVE 1 % 0-1 PERCENT (BEAKER) (test code = 2801) POCT-GLUCOSE [id number] 21:24:00 Test Item Value Reference Range Interpretation Comments POC-GLUCOSE METER 255 mg/dL 70-110 H TESTED AT [facility] 6720 ([facility] (test code = JULIANO Osborne [facility] 1538) [address] POCT-GLUCOSE [id number] 17:11:00 Test Item Value Reference Range Interpretation Comments POC-GLUCOSE METER 244 mg/dL 70-110 H TESTED AT [facility] 6720 ([facility]) (test code = JULIANO Osborne [facility] 1538) [address] POCT-GLUCOSE [id number] 11:54:00 Test Item Value Reference Range Interpretation Comments POC-GLUCOSE METER 209 mg/dL 70-110 H TESTED AT [facility] 6720 ([facility] (test code = JULIANO Osborne [place] 1538) [address] POCT-GLUCOSE [id number] 08:15:00 Test Item Value Reference Range Interpretation Comments POC-GLUCOSE METER 132 mg/dL 70-110 H TESTED AT [facility] 6720 ([facility]) (test code = JULIANO Osborne [place] 1538) [address] RAD, CHEST, 1 VIEW, NON [id number] 07:44:00Reason for exam:->edemaShould this be performed at the bedside?->YesFINAL REPORT Chest one view AP 08/07/2017 7:44 AM CLINICAL INDICATION: edema COMPARISON: 05/31/2017 IMPRESSION: Cardiomediastinal contours are stable. There is mild pulmonary edema,asymmetric to the right. There are trace bilateral pleural effusions, with bibasilar linear atelectasis. Sternotomy wires remain midline. Signed: Eder Cespedes Verified Date/Time: 08/07/2017 07:44:22 Reading Location: [facility] Radiology Reading Room [id number] 05:30:00 Test Item Value Reference Range Interpretation Comments FERRITIN (BEAKER) (test code = 361) 87 ng/mL 5-275 CBC W/PLT COUNT & AUTO [id number] 05:21:00 Test Item Value Reference Range Interpretation [...] % 20-55 L (test code = 2590) [id number] 05:11:00 Test Item Value Reference Range Interpretation Comments PHOSPHORUS (BEAKER) (test code = 3.6 mg/dL 2.3-4.7 604) [id number] 05:11:00 Test Item Value Reference Range Interpretation Comments MAGNESIUM (BEAKER) (test code = 2.0 mg/dL 1.6-2.6 627) BASIC METABOLIC [id number] 05:11:00 Test Item Value Reference Range Interpretation [...] H (BEAKER) (test code = 700) CALCIUM, [id number] 04:58:00 Test Item Value Reference Range Interpretation Comments CALCIUM IONIZED (BEAKER) (test 1.04 mmol/L 1.12-1.27 L code = 698) PH, BLOOD (BEAKER) (test code = 7.41 1810) RETICULOCYTE [id number] 04:51:00 Test Item Value Reference Range Interpretation Comments RETICULOCYTE COUNT PCT (BEAKER) (test 1.2 % 0.5-1.7 code = 575) POCT-GLUCOSE [id number] 20:49:00 Test Item Value Reference Range Interpretation Comments POC-GLUCOSE METER 202 mg/dL 70-110 H TESTED AT [facility] 6720 (BEAKER) (test code = [facility] 1538) [address] CREATININE, RANDOM [id number] 18:38:00 Test Item Value Reference Range Interpretation Comments CREATININE URINE (BEAKER) (test 56.3 mg/dL code = 375) Reference Range: No NormalsPROTEIN, RANDOM [id number] 18:38:00 Test Item Value Reference Range Interpretation Comments PROTEIN, URINE (BEAKER) (test code 189 mg/dL 0-14 H = 1569) URINALYSIS W/ [id number] 18:34:00 Test Item Value Reference Range Interpretation [...] 516) SOURCE(BEAKER) (test code = Urine, Voided 8145) POCT-GLUCOSE [id number] 17:38:00 Test Item Value Reference Range Interpretation Comments POC-GLUCOSE METER 143 mg/dL 70-110 H TESTED AT [place] [address] (BEAKER) (test code = JULIANO [place] 1538) [address] POCT-GLUCOSE [id number] 12:30:00 Test Item Value Reference Range Interpretation Comments POC-GLUCOSE METER 218 mg/dL 70-110 H TESTED AT [place] [address] (BEAKER) (test code = JULINAO [place] 1538) [address] POCT-GLUCOSE [id number] 08:00:00 Test Item Value Reference Range Interpretation Comments POC-GLUCOSE METER 134 mg/dL 70-110 H TESTED AT [place] [address] (BEAKER) (test code = JULIANO Osborne [facility] 1538) [address] CBC W/PLT COUNT & AUTO [id number] 04:23:00 Test Item Value Reference Range Interpretation [...] % 0-1 PERCENT (BEAKER) (test code = 2809) BASIC METABOLIC [id number] 04:13:00 Test Item Value Reference Range Interpretation [...] S NOT APPLICABLE FOR DIALYSIS PATIEN TS. [id number] 04:10:00 Test Item Value Reference Range Interpretation Comments PHOSPHORUS (BEAKER) (test code = 4.9 mg/dL 2.3-4.7 H 604) [id number] 04:10:00 Test Item Value Reference Range Interpretation Comments MAGNESIUM (BEAKER) (test code = 1.4 mg/dL 1.6-2.6 L 627) [id number] 04:08:00 Test Item Value Reference Range Interpretation Comments FIBRINOGEN LEVEL (BEAKER) (test 548 mg/dl 225-434 H code = 658) [id number] 04:08:00 Test Item Value Reference Range Interpretation Comments PARTIAL THROMBOPLASTIN TIME 37.7 seconds 22.5-36.0 H (BEAKER) (test code = 760) PROTHROMBIN [id number] 04:07:00 Test Item Value Reference Range Interpretation Comments PROTIME (BEAKER) (test code = 16.2 seconds 11.7-14.7 H 759) INR (BEAKER) (test code = 370) 1.3 <=5.9 RECOMMENDED COUMADIN/WARFARIN INR THERAPY RANGESSTANDARD DOSE: 2.0 - 3.0 Includes: PROPHYLAXIS forvenous thrombosis, systemic embolization; TREATMENT for venous thrombosis and/or pulmonary embolus.HIGH RISK: Target INR is 2.5-3.5 for patients with mechanical heart valves.[id number] 16:59:00 Test Item Value Reference Range Interpretation Comments ACTIVATED CLOTTING TIME 219 sec TEST ED AT [place] [address] ([facility]) (test code = JULIANO Osborne [place] 441) [address] BASIC METABOLIC [id number] 14:25:00 Test Item Value Reference Range Interpretation [...] NOT APPLICABLE FOR DIALYSIS PATIEN TS. POCT-GLUCOSE [id number] 13:21:00 Test Item Value Reference Range Interpretation Comments POC-GLUCOSE METER 170 mg/dL 70-110 H TESTED AT [place] [address] ([facility]) (test code = [facility] Dylon [facility] 1538) [address] POTASSIUM-STAT [id number] 13:20:00 Test Item Value Reference Range Interpretation Comments POTASSIUM (BEAKER) (test code = 4.2 meq/L 3.6-5.5 379) SODIUM NA-STAT [id number] 13:20:00 Test Item Value Reference Range Interpretation Comments SODIUM (BEAKER) (test code = 381) 133 meq/L 135-148 L HGB/HCT (H&H) - STAT [id number] 12:34:00 Test Item Value Reference Range Interpretation Comments HEMOGLOBIN (BEAKER) (test code = 10.8 g/dL 12.0-15.0 L 410) HEMATOCRIT (BEAKER) (test code = 32.0 % 36.0-45.0 L 411) POTASSIUM-STAT [id number] 08:15:00 Test Item Value Reference Range Interpretation Comments POTASSIUM (BEAKER) (test code = 4.1 meq/L 3.6-5.5 379) BLOOD GAS, [id number] 08:15:00 Test Item Value Reference Range Interpretation [...] code = 1819) 70.0 % SODIUM NA-STAT [id number] 08:15:00 Test Item Value Reference Range Interpretation Comments SODIUM (BEAKER) (test code = 381) 130 meq/L 135-148 L GLUCOSE-STAT [id number] 08:15:00 Test Item Value Reference Range Interpretation Comments GLUCOSE RANDOM (BEAKER) (test code 172 mg/dL 70-110 H = 652) HGB/HCT (H&H) - STAT [id number] 08:15:00 Test Item Value Reference Range Interpretation Comments HEMOGLOBIN (BEAKER) (test code = 8.8 g/dL 12.0-15.0 L 410) HEMATOCRIT (BEAKER) (test code = 26.0 % 36.0-45.0 L 411) BASIC METABOLIC [id number] 07:37:00 Test Item Value Reference Range Interpretation [...] PATIEN TS. CBC W/PLT COUNT & AUTO [id number] 07:20:00 Test Item Value Reference Range Interpretation [...] PERCENT (BEAKER) (test code = 2801) POCT-GLUCOSE [id number] 07:03:00 Test Item Value Reference Range Interpretation Comments POC-GLUCOSE METER 186 mg/dL 70-110 H TESTED AT [facility] 6720 (BEAKER) (test code = JULIANO Osborne [facility] 1538) [address] B-TYPE NATRIURETIC FACTOR (BNP)2017-06-10 12:44:00 Test Item Value Reference Range Interpretation Comments B-TYPE NATRIURETIC PEPTIDE 1264 pg/mL 0-100 H (BEAKER) (test code = 700) [id number] 12:36:00 Test Item Value Reference Range Interpretation Comments MAGNESIUM (BEAKER) (test code = 1.6 mg/dL 1.6-2.6 627) BASIC METABOLIC [id number] 12:36:00 Test Item Value Reference Range Interpretation [...] NOT APPLICABLE FOR DIALYSIS PATIEN TS. POCT-GLUCOSE [id number] 12:04:00 Test Item Value Reference Range Interpretation Comments POC-GLUCOSE METER 274 mg/dL 70-110 H TESTED AT [facility] 6720 ([facility] (test code = [facility] 1538) [address] POCT-GLUCOSE [id number] 07:21:00 Test Item Value Reference Range Interpretation Comments POC-GLUCOSE METER 137 mg/dL 70-110 H TESTED AT [place] [address] ([facility]) (test code = [facility] 1538) [address] BASIC METABOLIC [id number] 05:10:00 Test Item Value Reference Range Interpretation [...] 0-0 (BEAKER) (test code = 413) POCT-GLUCOSE [id number] 21:23:00 Test Item Value Reference Range Interpretation Comments POC-GLUCOSE METER 240 mg/dL 70-110 H TESTED AT [facility] 6720 ([facility]) ([facility] = [facility] [place] [place] 1538) [address] POCT-GLUCOSE [id number] 16:42:00 Test Item Value Reference Range Interpretation Comments POC-GLUCOSE METER 234 mg/dL 70-110 H TESTED AT [facility] 6720 ([facility]) (test code = [facility] [place] [place] 1538) [address] POCT-GLUCOSE [id number] 13:22:00 Test Item Value Reference Range Interpretation Comments POC-GLUCOSE METER 166 mg/dL 70-110 H TESTED AT [facility] 6720 (BEAKER) (test code = JULIANO Osborne [place] 1538) [address] RAD, CHEST, 1 VIEW, NON [id number] 09:43:00Reason for exam:->s/p ACBShould this be performed [...] pneumothorax. Signed: Lynda Ring Verified Date/Time: 05/31/2017 09:43:30 ReadingLocation: [facility] B1 C013X Ortho Consult Reading Room POCT-GLUCOSE [id number] 06:57:00 Test Item Value Reference Range Interpretation Comments POC-GLUCOSE METER 136 mg/dL 70-110 H TESTED AT [facility] 6720 ([facility]) (test code = JULIANO Osborne [place] 1538) [address] CALCIUM, [id number] 06:41:00 Test Item Value Reference Range Interpretation Comments CALCIUM IONIZED (BEAKER) (test 1.10 mmol/L 1.12-1.27 L code = 698) PH, BLOOD (BEAKER) (test code = 7.42 1810) [id number] 06:17:00 Test Item Value Reference Range Interpretation Comments PHOSPHORUS (BEAKER) (test code = 3.3 mg/dL 2.3-4.7 604) [id number] 06:17:00 Test Item Value Reference Range Interpretation Comments MAGNESIUM (BEAKER) (test code = 1.8 mg/dL 1.6-2.6 627) BASIC METABOLIC [id number] 06:17:00 Test Item Value Reference Range Interpretation [...] PATIEN TS. CBC W/PLT COUNT & AUTO [id number] 05:07:00 Test Item Value Reference Range Interpretation [...] EOSINOPHILS ABSOLUTE COUNT 0.11 K/ L 0.04-0.36 (BEAKER) (test code = 416) BASOPHILS ABSOLUTE COUNT (BEAKER) 0.05 K/ L 0.01-0.08 (test code = 417) IMMATURE GRANULOCYTES-RELATIVE 1 % 0-1 PERCENT (BEAKER) (test code = 2801) POCT-GLUCOSE [id number] 20:56:00 Test Item Value Reference Range Interpretation Comments POC-GLUCOSE METER 196 mg/dL 70-110 H TESTED AT [facility] 67 ([facility]) (test code = [facility] Dylon [facility] 1538) [address] POCT-GLUCOSE [id number] 16:42:00 Test Item Value Reference Range Interpretation Comments POC-GLUCOSE METER 196 mg/dL 70-110 H TESTED AT [facility] 67 ([facility]) (test code = [facility] Dylon [facility] 1538) [address] POCT-GLUCOSE [id number] 11:45:00 Test Item Value Reference Range Interpretation Comments POC-GLUCOSE METER 215 mg/dL 70-110 H TESTED AT [place] [address] ([facility]) (test code = [facility] Dylon [facility] 1538) [address] RAD, CHEST, 1 VIEW, NON [id number] 11:15:00Reason for exam:->s/p ACBShould this be performed at the bedside?->YesFINAL REPORT Chest one view compared to May 28, 2017 Discussion: Airspace opacities are seen in both lower lung regions, probably atelectasis. Correlate clinically for infection. I could not exclude small effusions. No pneumothorax. Upper lungs clear. Signed: Jeannette Nava MDReport Verified Date/Time: 05/30/2017 11:15:07 [facility] CALCIUM, [id number] 09:21:00 Test Item Value Reference Range Interpretation Comments CALCIUM IONIZED (BEAKER) (test 1.11 mmol/L 1.12-1.27 L code = 698) PH, BLOOD (BEAKER) (test code = 7.36 1810) BASIC METABOLIC [id number] 07:37:00 Test Item Value Reference Range Interpretation [...] S NOT APPLICABLE FOR DIALYSIS PATIEN TS. [id number] 07:28:00 Test Item Value Reference Range Interpretation Comments PHOSPHORUS (BEAKER) (test code = 3.8 mg/dL 2.3-4.7 604) [id number] 07:28:00 Test Item Value Reference Range Interpretation Comments MAGNESIUM (BEAKER) (test code = 1.9 mg/dL 1.6-2.6 627) CBC W/PLT COUNT & AUTO [id number] 07:26:00 Test Item Value Reference Range Interpretation [...] PERCENT (BEAKER) (test code = 2801) POCT-GLUCOSE [id number] 07:21:00 Test Item Value Reference Range Interpretation Comments POC-GLUCOSE METER 146 mg/dL 70-110 H TESTED AT [place] [address] ([facility]) (test code = [facility] 1538) [address] POCT-GLUCOSE [id number] 22:02:00 Test Item Value Reference Range Interpretation Comments POC-GLUCOSE METER 201 mg/dL 70-110 H TESTED AT [place] [address] ([facility]) (test code = [facility] 1538) [address] POCT-GLUCOSE [id number] 18:27:00 Test Item Value Reference Range Interpretation Comments POC-GLUCOSE METER 240 mg/dL 70-110 H TESTED AT [place] [address] ([facility]) (test code = [facility] 1538) [address] POCT-GLUCOSE [id number] 12:13:00 Test Item Value Reference Range Interpretation Comments POC-GLUCOSE METER 193 mg/dL 70-110 H TESTED AT [place] [address] ([facility]) (test code = [facility] 1538) [address] POCT-GLUCOSE [id number] 09:02:00 Test Item Value Reference Range Interpretation Comments POC-GLUCOSE METER 132 mg/dL 70-110 H TESTED AT [place] [address] ([facility]) (test code = [facility] 1538) [address] CALCIUM, [id number] 05:42:00 Test Item Value Reference Range Interpretation Comments CALCIUM IONIZED ([facility]) (test 1.12 mmol/L 1.12-1.27 code = 698) PH, BLOOD ([facility]) (test code = 7.34 1810) COMPREHENSIVE METABOLIC [id number] 05:33:00 Test Item Value Reference Range Interpretation Comments TOTAL PROTEIN 5.9 gm/dL 6.0-8.3 L ([facility]) (test code = 770) ALBUMIN ([facility]) 2.7 g/dL 3.5-5.0 L (test code = 1145) ALKALINE PHOSPHATASE 130 U/L 40-150 ([facility]) (test code = 346) BILIRUBIN TOTAL 0.3 mg/dL 0.2-1.2 ([facility]) (test code = 377) SODIUM (BEAKER) (test [...] S NOT APPLICABLE FOR DIALYSIS PATIEN TS. [id number] 05:32:00 Test Item Value Reference Range Interpretation Comments PHOSPHORUS (BEAKER) (test code = 3.6 mg/dL 2.3-4.7 604) [id number] 05:32:00 Test Item Value Reference Range Interpretation Comments MAGNESIUM (BEAKER) (test code = 2.2 mg/dL 1.6-2.6 627) CBC W/PLT COUNT & AUTO [id number] 05:01:00 Test Item Value Reference Range Interpretation [...] PERCENT (BEAKER) (test code = 2801) POCT-GLUCOSE [id number] 21:04:00 Test Item Value Reference Range Interpretation Comments POC-GLUCOSE METER 165 mg/dL 70-110 H TESTED AT [facility] 6720 ([facility]) (test code = JULIANO Osborne [facility] 1538) [address] POCT-GLUCOSE [id number] 17:30:00 Test Item Value Reference Range Interpretation Comments POC-GLUCOSE METER 236 mg/dL 70-110 H TESTED AT [facility] 6720 ([facility]) (test code = JULIANO [place] 1538) [address] RAD, CHEST, 1 VIEW, NON [id number] 13:53:00Reason for exam:->assess for ill-defined opacityShould this [...] [place] Verified Date/Time: 05/28/2017 13:53:03 Reading Location: [address] Radiology Reading Room POCT-GLUCOSE [id number] 11:53:00 Test Item Value Reference Range Interpretation Comments POC-GLUCOSE METER 215 mg/dL 70-110 H TESTED AT [facility] 6720 ([facility]) (test code = JULIANO Osborne [facility] 1538) [address] POCT-GLUCOSE [id number] 08:32:00 Test Item Value Reference Range Interpretation Comments POC-GLUCOSE METER 168 mg/dL 70-110 H TESTED AT [facility] 6720 (BEAKER) (test code = JULIANO Osborne [facility] 1538) [address] CALCIUM, [id number] 05:44:00 Test Item Value Reference Range Interpretation Comments CALCIUM IONIZED (BEAKER) (test 1.09 mmol/L 1.12-1.27 L code = 698) PH, BLOOD (BEAKER) (test code = 7.38 1810) [id number] 05:44:00 Test Item Value Reference Range Interpretation Comments PHOSPHORUS (BEAKER) (test code = 3.5 mg/dL 2.3-4.7 604) [id number] 05:44:00 Test Item Value Reference Range Interpretation Comments MAGNESIUM (BEAKER) (test code = 1.9 mg/dL 1.6-2.6 627) BASIC METABOLIC [id number] 05:44:00 Test Item Value Reference Range Interpretation [...] PATIEN TS. CBC W/PLT COUNT & AUTO [id number] 05:05:00 Test Item Value Reference Range Interpretation [...] PERCENT (BEAKER) (test code = 2801) POCT-GLUCOSE [id number] 21:03:00 Test Item Value Reference Range Interpretation Comments POC-GLUCOSE METER 173 mg/dL 70-110 H TESTED AT [place] [address] ([facility]) (test code = JULIANO Osborne [facility] 1538) [address] [id number] 18:15:00 Test Item Value Reference Range Interpretation Comments ACTIVATED CLOTTING TIME 147 sec TEST ED AT [place] [address] ([facility]) (test code = JULIANO Osborne [facility] 441) [address] [id number] 18:15:00 Test Item Value Reference Range Interpretation Comments ACTIVATED CLOTTING TIME 246 sec TEST ED AT [place] [address] ([facility]) (test code = JULIANO Osborne [facility] 441) [address] POCT-GLUCOSE [id number] 12:39:00 Test Item Value Reference Range Interpretation Comments POC-GLUCOSE METER 219 mg/dL 70-110 H TESTED AT [place] [address] ([facility]) ([facility] = [facility] 1538) [address] RAD, CHEST, 1 VIEW, NON [id number] 10:11:00Reason for exam:->pl effusionShould this be performed at the bedside?->YesFINAL REPORT Chest one view compared to May 26 Discussion: There is cardiac prominence. Upper lungs are clear. Ill-defined basilar densities are similar probably atelectasis. No gross effusion or pneumothorax with bilateral chest tubes in place. Signed: Jeannette Nava Verified Date/Time: 05/27/2017 10:11:44 Reading Location: [facility] Radiology Reading Room POCT-GLUCOSE METER 2017-05-27 07:05:00 Test Item Value Reference Range Interpretation Comments POC-GLUCOSE METER 167 mg/dL 70-110 H TESTED AT [facility] 6720 (BEAKER) (test code = JULIANO Osborne [facility] 1538) [address] CALCIUM, [id number] 06:20:00 Test Item Value Reference Range Interpretation Comments CALCIUM IONIZED (BEAKER) (test 0.98 mmol/L 1.12-1.27 L code = 698) PH, BLOOD (BEAKER) (test code = 7.50 1810) [id number] 04:56:00 Test Item Value Reference Range Interpretation Comments PHOSPHORUS (BEAKER) (test code = 2.6 mg/dL 2.3-4.7 604) [id number] 04:56:00 Test Item Value Reference Range Interpretation Comments MAGNESIUM (BEAKER) (test code = 2.0 mg/dL 1.6-2.6 627) BASIC METABOLIC [id number] 04:56:00 Test Item Value Reference Range Interpretation [...] PATIEN TS. CBC W/PLT COUNT & AUTO [id number] 04:36:00 Test Item Value Reference Range Interpretation [...] EOSINOPHILS ABSOLUTE COUNT 0.22 K/ L 0.04-0.36 (BEAKER) (test code = 416) BASOPHILS ABSOLUTE COUNT (BEAKER) 0.05 K/ L 0.01-0.08 (test code = 417) IMMATURE GRANULOCYTES-RELATIVE 1 % 0-1 PERCENT (BEAKER) (test code = 2801) POCT-GLUCOSE [id number] 21:29:00 Test Item Value Reference Range Interpretation Comments POC-GLUCOSE METER 147 mg/dL 70-110 H TESTED AT [place] [address] ([facility]) (test code = JULIANO Osborne [facility] 1538) [address] POCT-GLUCOSE [id number] 17:51:00 Test Item Value Reference Range Interpretation Comments POC-GLUCOSE METER 224 mg/dL 70-110 H TESTED AT [place] [address] ([facility]) (test code = [facility] Dylon [facility] 1538) [address] POCT-GLUCOSE [id number] 13:53:00 Test Item Value Reference Range Interpretation Comments POC-GLUCOSE METER 182 mg/dL 70-110 H TESTED AT [place] [address] ([facility]) (test code = [facility] D[place] [facility] 1538) [address] RAD, CHEST, 1 VIEW, NON [id number] 08:44:00Reason for exam:->pl effusionShould this be performed [...] significant change. Signed: Gene Ramirez MDReport Verified Date/Time: 05/26/2017 08:44:25 Reading Location: [address] Radiology Reading Room POCT- GLUCOSE [id number] 07:43:00 Test Item Value Reference Range Interpretation Comments POC-GLUCOSE METER 113 mg/dL 70-110 H TESTED AT [facility] 6720 (BEAKER) (test code = JULIANO Osborne [facility] 1538) [address] CALCIUM, [id number] 06:31:00 Test Item Value Reference Range Interpretation Comments CALCIUM IONIZED (BEAKER) (test 1.07 mmol/L 1.12-1.27 L code = 698) PH, BLOOD (BEAKER) (test code = 7.38 1810) [id number] 04:51:00 Test Item Value Reference Range Interpretation Comments PHOSPHORUS (BEAKER) (test code = 3.2 mg/dL 2.3-4.7 604) [id number] 04:51:00 Test Item Value Reference Range Interpretation Comments MAGNESIUM (BEAKER) (test code = 2.1 mg/dL 1.6-2.6 627) BASIC METABOLIC [id number] 04:51:00 Test Item Value Reference Range Interpretation [...] PATIEN TS. CBC W/PLT COUNT & AUTO [id number] 04:27:00 Test Item Value Reference Range Interpretation [...] PERCENT (BEAKER) (test code = 2801) POCT-GLUCOSE [id number] 23:48:00 Test Item Value Reference Range Interpretation Comments POC-GLUCOSE METER 123 mg/dL 70-110 H TESTED AT [facility] 6720 (BEAKER) (test code = JULIANO Osborne [place] 1538) [address] POCT-GLUCOSE [id number] 16:46:00 Test Item Value Reference Range Interpretation Comments POC-GLUCOSE METER 178 mg/dL 70-110 H TESTED AT [facility] 6720 (BEAKER) (test code = JULIANO Osborne [place] 1538) [address] BASIC METABOLIC [id number] 05:53:00 Test Item Value Reference Range Interpretation [...] S NOT APPLICABLE FOR DIALYSIS PATIEN TS. [id number] 05:52:00 Test Item Value Reference Range Interpretation Comments PHOSPHORUS (BEAKER) (test code = 4.2 mg/dL 2.3-4.7 604) [id number] 05:52:00 Test Item Value Reference Range Interpretation Comments MAGNESIUM (BEAKER) (test code = 2.3 mg/dL 1.6-2.6 627) CALCIUM, [id number] 05:27:00 Test Item Value Reference Range Interpretation Comments CALCIUM IONIZED (BEAKER) (test 1.12 mmol/L 1.12-1.27 code = 698) PH, BLOOD (BEAKER) (test code = 7.38 1810) CBC W/PLT COUNT & AUTO [id number] 05:07:00 Test Item Value Reference Range Interpretation [...] 0-1 PERCENT (BEAKER) (test code = 2801) RAD, CHEST, 1 VIEW, NON [id number] 04:45:00Reason for exam:->pl effusionShould this be performed at the bedside?->YesFINAL REPORT RAD, CHEST, 1 VIEW, NON DEPT INDICATION: pl effusion COMPARISON:Prior day's exam FINDINGS: Portable frontal view of the chest. IMPRESSION: Support Lines: Stable.Lungs and pleura: Unchanged airspace and pleural opacities. No pneumothorax.Heart and mediastinum: Stable contours. Stable surgical changes.Additional findings: None. Signed: JR Boswell Robert MDReport Verified Date/Time: 05/25/2017 04:45:08 Reading Location: [address] Body Reading Room POCT-GLUCOSE [id number] 01:52:00 Test Item Value Reference Range Interpretation Comments POC-GLUCOSE METER 126 mg/dL 70-110 H TESTED AT [place] [address] ([facility]) (test code = JULIANO [place] 1538) [address] POCT-GLUCOSE [id number] 13:07:00 Test Item Value Reference Range Interpretation Comments POC-GLUCOSE METER 118 mg/dL 70-110 H TESTED AT [facility] 6720 ([facility]) (test code = JULIANO [place] 1538) [address] BRONCHIAL CULTURE + GRAM [id number] 11:35:00 Test Item Value Reference Range Interpretation Comments CULTURE ([facility]) (test code = 1095) Amikacin (test code [...] <1+ gram (BEAKER) (test code = positive 892980) cocci in pairs GRAM STAIN RESULT 1+ gram (BEAKER) (test code = variable rods 088136) 1+ Normal respiratory todd presentRAD, CHEST, 1 VIEW, NON [id number] 06:50:00Reason for exam:->pl effusionShould this be performed at the bedside?->YesFINAL REPORT RAD, CHEST, 1 VIEW, NON DEPT INDICATION: pl effusion COMPARISON:Prior day's exam FINDINGS: Portable frontal view of the chest. IMPRESSION: Support Lines: Stable.Lungs and pleura: Unchanged airspace and pleural opacities. No pneumothorax.Heart and mediastinum: Stable contours. Stable surgical changes.Additional findings: None. Signed: JR Boswell Robert MDReport Verified Date/Time: 05/24/2017 06:50:08 Reading Location: [facility] C0[facility] Body Reading Room BASIC METABOLIC [id number] 04:19:00 Test Item Value Reference Range Interpretation [...] NOT APPLICABLE FOR DIALYSIS PATIEN TS. CALCIUM, [id number] 04:16:00 Test Item Value Reference Range Interpretation Comments CALCIUM IONIZED (BEAKER) (test 1.06 mmol/L 1.12-1.27 L code = 698) PH, BLOOD (BEAKER) (test code = 7.40 1810) [id number] 04:11:00 Test Item Value Reference Range Interpretation Comments PHOSPHORUS (BEAKER) (test code = 6.0 mg/dL 2.3-4.7 H 604) [id number] 04:11:00 Test Item Value Reference Range Interpretation Comments MAGNESIUM (BEAKER) (test code = 2.4 mg/dL 1.6-2.6 627) CBC W/PLT COUNT & AUTO [id number] 03:50:00 Test Item Value Reference Range Interpretation [...] PERCENT (BEAKER) (test code = 2801) POCT-GLUCOSE [id number] 20:45:00 Test Item Value Reference Range Interpretation Comments POC-GLUCOSE METER 143 mg/dL 70-110 H TESTED AT [facility] 6720 (BEAKER) (test code = JULIANO REYEZ 1538) [address] POCT-GLUCOSE [id number] 20:45:00 Test Item Value Reference Range Interpretation Comments POC-GLUCOSE METER 145 mg/dL 70-110 H TESTED AT [facility] 6720 (BEAKER) (test code = JULIANO [place] 1538) [address] [id number] 13:37:00 Test Item Value Reference Range Interpretation Comments PREALBUMIN (BEAKER) 10 mg/dL 14-45 L Specimen slightly (test code = 586) hemolyzed OXYGEN SATURATION, [id number] 12:31:00 Test Item Value Reference Range Interpretation Comments O2 SATURATION (MEASURED) (BEAKER) 94.5 % (test code = 1455) [id number] 11:02:00 Test Item Value Reference Range Interpretation Comments PREALBUMIN (BEAKER) (test code = 10 mg/dL 14-45 L 586) RAD, CHEST, 1 VIEW, NON [id number] 05:14:00while patient is intubated or has chest [...] MDReport Verified Date/Time: 05/23/2017 05:14:04 Reading Location: [facility] C013Y CT Body Reading Room BASIC METABOLIC [id number] 03:48:00 Test Item Value Reference Range Interpretation [...] S NOT APPLICABLE FOR DIALYSIS PATIEN TS. [id number] 03:46:00 Test Item Value Reference Range Interpretation Comments MAGNESIUM (BEAKER) 2.4 mg/dL 1.6-2.6 Specimen slightly (test code = 627) hemolyzed [id number] 03:46:00 Test Item Value Reference Range Interpretation Comments PHOSPHORUS (BEAKER) 6.5 mg/dL 2.3-4.7 H Specimen slightly (test code = 604) hemolyzed CBC W/PLT COUNT & AUTO [id number] 03:26:00 Test Item Value Reference Range Interpretation [...] (BEAKER) (test code = 2801) BLOOD GAS, [id number] 03:18:00 Test Item Value Reference Range Interpretation [...] (test code = 1819) 36.0 % CALCIUM, [id number] 16:32:00 Test Item Value Reference Range Interpretation Comments CALCIUM IONIZED (BEAKER) (test 1.11 mmol/L 1.12-1.27 L code = 698) PH, BLOOD (BEAKER) (test code = 7.39 1810) BASIC METABOLIC [id number] 15:43:00 Test Item Value Reference Range Interpretation [...] NOT APPLICABLE FOR DIALYSIS PATIEN TS. POCT-GLUCOSE [id number] 12:53:00 Test Item Value Reference Range Interpretation Comments POC-GLUCOSE METER 118 mg/dL 70-110 H TESTED AT [facility] 6720 (BEAKER) (test code = [place] 1538) [address] BLOOD GAS, [id number] 10:42:00 Test Item Value Reference Range Interpretation [...] (test code = 1819) 40.0 % POCT-GLUCOSE [id number] 06:46:00 Test Item Value Reference Range Interpretation Comments POC-GLUCOSE METER 106 mg/dL 70-110 TESTED AT [facility] 67[address] (BEAKER) (test code = [place] 1538) [id number] RAD, CHEST, 1 VIEW, NON [id number] 05:05:00while patient is intubated or has chest [...] MDReport Verified Date/Time: 05/22/2017 05:05:00 Reading Location: [address] Body ReadingRoom BASIC METABOLIC [id number] 05:00:00 Test Item Value Reference Range Interpretation [...] S NOT APPLICABLE FOR DIALYSIS PATIEN TS. [id number] 04:41:00 Test Item Value Reference Range Interpretation Comments PHOSPHORUS (BEAKER) (test code = 6.4 mg/dL 2.3-4.7 H 604) [id number] 04:41:00 Test Item Value Reference Range Interpretation Comments MAGNESIUM (BEAKER) (test code = 2.6 mg/dL 1.6-2.6 627) CALCIUM, [id number] 04:26:00 Test Item Value Reference Range Interpretation Comments CALCIUM IONIZED (BEAKER) (test 1.09 mmol/L 1.12-1.27 L code = 698) PH, BLOOD (BEAKER) (test code = 7.40 1810) OXYGEN SATURATION, [id number] 04:25:00 Test Item Value Reference Range Interpretation Comments O2 SATURATION (MEASURED) (BEAKER) 77.0 % (test code = 1455) CBC W/PLT COUNT & AUTO [id number] 04:17:00 Test Item Value Reference Range Interpretation [...] code = 2801) LACTIC ACID, ARTERIAL, WHOLE [id number] 00:07:00 Test Item Value Reference Range Interpretation Comments LACTATE BLOOD 1.0 mmol/L 0.5-2.2 Specimen sligh tly ARTERIAL (2) (BEAKER) hemoly zed (test code = 2874) Effective 08/02/2015: Units/Reference Range ChangeNew: 0.5-2.2 mmol/L Previous: 5-20 mg/dLPOCT-GLUCOSE [id number] 23:47:00 Test Item Value Reference Range Interpretation Comments POC-GLUCOSE METER 180 mg/dL 70-110 H TESTED AT [facility] 6720 (BEAKER) (test code = JULIANO REYEZ 1538) [address] BLOOD GAS, [id number] 23:46:00 Test Item Value Reference Range Interpretation [...] code = 1819) 100.0 % SODIUM NA-STAT [id number] 23:46:00 Test Item Value Reference Range Interpretation Comments SODIUM (BEAKER) (test code = 381) 134 meq/L 135-148 L GLUCOSE-STAT [id number] 23:46:00 Test Item Value Reference Range Interpretation Comments GLUCOSE RANDOM (BEAKER) (test code 119 mg/dL 70-110 H = 652) HGB/HCT (H&H) - STAT [id number] 23:46:00 Test Item Value Reference Range Interpretation Comments HEMOGLOBIN (BEAKER) (test code = 8.8 g/dL 12.0-15.0 L 410) HEMATOCRIT (BEAKER) (test code = 26.0 % 36.0-45.0 L 411) OXYGEN SATURATION, [id number] 23:45:00 Test Item Value Reference Range Interpretation Comments O2 SATURATION (MEASURED) (BEAKER) 68.1 % (test code = 1455) POTASSIUM-STAT [id number] 23:45:00 Test Item Value Reference Range Interpretation Comments POTASSIUM (BEAKER) (test code = 5.5 meq/L 3.6-5.5 379) POCT-GLUCOSE [id number] 20:58:00 Test Item Value Reference Range Interpretation Comments POC-GLUCOSE METER 133 mg/dL 70-110 H TESTED AT [facility] 6720 ([facility] (test code = JULIANO Osborne [facility] 1538) [address] POCT-GLUCOSE [id number] 17:58:00 Test Item Value Reference Range Interpretation Comments POC-GLUCOSE METER 210 mg/dL 70-110 H TESTED AT [facility] 6720 ([facility]) (test code = JULIANO Osborne [facility] 1538) [address] POCT-GLUCOSE [id number] 17:58:00 Test Item Value Reference Range Interpretation Comments POC-GLUCOSE METER 211 mg/dL 70-110 H TESTED AT [place] [address] ([facility]) (test code = JULIANO Osborne [place] 1538) [address] POCT-GLUCOSE [id number] 17:58:00 Test Item Value Reference Range Interpretation Comments POC-GLUCOSE METER 232 mg/dL 70-110 H TESTED AT [place] [address] ([facility]) (test code = JULIANO Osborne [facility] 1538) [address] POCT-GLUCOSE [id number] 17:58:00 Test Item Value Reference Range Interpretation Comments POC-GLUCOSE METER 262 mg/dL 70-110 H TESTED AT [place] [address] (BEAKER) (test code = [facility] [place] [facility] 1538) [address] BLOOD GAS, [id number] 17:01:00 Test Item Value Reference Range Interpretation [...] (test code = 1819) 60.0 % POTASSIUM-STAT [id number] 17:00:00 Test Item Value Reference Range Interpretation Comments POTASSIUM (BEAKER) (test code = 4.8 meq/L 3.6-5.5 379) POCT-GLUCOSE [id number] 15:52:00 Test Item Value Reference Range Interpretation Comments POC-GLUCOSE METER 267 mg/dL 70-110 H TESTED AT [place] [address] (BEAKER) (test code = JULIANO Osborne [place] 1538) [address] POCT-GLUCOSE [id number] 14:42:00 Test Item Value Reference Range Interpretation Comments POC-GLUCOSE METER 231 mg/dL 70-110 H TESTED AT [facility] 6720 (BEAKER) (test code = JULIANO [place] 1538) [address] BODY FLUID CELL COUNT WITH [id number] 14:41:00 Test Item Value Reference Range Interpretation [...] FLUID (BEAKER) EDTA Tube (test code = 2873) BASIC METABOLIC [id number] 14:11:00 Test Item Value Reference Range Interpretation [...] S NOT APPLICABLE FOR DIALYSIS PATIEN TS. [id number] 14:08:00 Test Item Value Reference Range Interpretation Comments PHOSPHORUS (BEAKER) (test code = 7.2 mg/dL 2.3-4.7 H 604) [id number] 14:08:00 Test Item Value Reference Range Interpretation Comments MAGNESIUM (BEAKER) (test code = 2.6 mg/dL 1.6-2.6 627) POCT-GLUCOSE [id number] 12:49:00 Test Item Value Reference Range Interpretation Comments POC-GLUCOSE METER 224 mg/dL 70-110 H TESTED AT [facility] 67 (ROBERT) (test code = JULIANO Osborne [facility] 1538) [address] POCT-GLUCOSE [id number] 12:49:00 Test Item Value Reference Range Interpretation Comments POC-GLUCOSE METER 248 mg/dL 70-110 H TESTED AT [place] [address] (ROBERT) (test code = JULIANO Osborne [facility] 1538) [address] RAD, CHEST, 1 VIEW, NON [id number] 12:32:00Reason for exam:->re-intubationShould this be performed at [...] MDReport Verified Date/Time: 05/21/2017 12:32:08 Reading Location: [facility] Radiology Reading Room POTASSIUM-STAT [id number] 12:28:00 Test Item Value Reference Range Interpretation Comments POTASSIUM (BEAKER) (test code = 5.5 meq/L 3.6-5.5 379) BLOOD GAS, [id number] 12:28:00 Test Item Value Reference Range Interpretation [...] code = 1819) 100.0 % BLOOD GAS, [id number] 10:53:00 Test Item Value Reference Range Interpretation [...] 36.0 % RAD, CHEST, 1 VIEW, NON [id number] 08:46:00while patient is intubated or has chest [...] MDReport Verified Date/Time: 05/21/2017 08:46:27 [facility] BLOOD GAS, [id number] 05:41:00 Test Item Value Reference Range Interpretation [...] (BEAKER) (test code = 1819) 40 CALCIUM, [id number] 04:35:00 Test Item Value Reference Range Interpretation Comments CALCIUM IONIZED (BEAKER) (test 1.13 mmol/L 1.12-1.27 code = 698) PH, BLOOD (BEAKER) (test code = 7.32 1810) BLOOD GAS, [id number] 04:28:00 Test Item Value Reference Range Interpretation [...] (BEAKER) (test code = 1819) 40.0 % [id number] 04:20:00 Test Item Value Reference Range Interpretation Comments PHOSPHORUS (BEAKER) (test code = 6.2 mg/dL 2.3-4.7 H 604) [id number] 04:20:00 Test Item Value Reference Range Interpretation Comments MAGNESIUM (BEAKER) (test code = 2.4 mg/dL 1.6-2.6 627) HEPATIC FUNCTION [id number] 04:20:00 Test Item Value Reference Range Interpretation [...] = 11 U/L 6-55 347) BASIC METABOLIC [id number] 04:20:00 Test Item Value Reference Range Interpretation [...] APPLICABLE FOR DIALYSIS PATIEN TS. OXYGEN SATURATION, [id number] 04:18:00 Test Item Value Reference Range Interpretation Comments O2 SATURATION (MEASURED) (BEAKER) 68.0 % (test code = 1455) LACTIC ACID, ARTERIAL, WHOLE [id number] 04:12:00 Test Item Value Reference Range Interpretation Comments LACTATE BLOOD ARTERIAL (2) 1.0 mmol/L 0.5-2.2 (BEAKER) (test code = 2874) Effective 08/02/2015: Units/Reference Range ChangeNew: 0.5-2.2 mmol/L Previous: 5-20 mg/dLCBC W/PLT COUNT & AUTO [id number] 04:00:00 Test Item Value Reference Range Interpretation [...] (BEAKER) (test code = 2801) BLOOD GAS, [id number] 00:06:00 Test Item Value Reference Range Interpretation [...] (BEAKER) (test code = 1819) 40.0 % [id number] 18:55:00 Test Item Value Reference Range Interpretation Comments PHOSPHORUS (BEAKER) (test code = 4.8 mg/dL 2.3-4.7 H 604) [id number] 18:55:00 Test Item Value Reference Range Interpretation Comments MAGNESIUM (BEAKER) (test code = 2.3 mg/dL 1.6-2.6 627) BASIC METABOLIC [id number] 18:55:00 Test Item Value Reference Range Interpretation [...] DIALYSIS PATIEN TS. LACTIC ACID, ARTERIAL, WHOLE [id number] 18:53:00 Test Item Value Reference Range Interpretation Comments LACTATE BLOOD 0.9 mmol/L 0.5-2.2 Specimen sligh tly ARTERIAL (2) (BEAKER) hemoly zed (test code = 2874) Effective 08/02/2015: Units/Reference Range ChangeNew: 0.5-2.2 mmol/L Previous: 5-20 mg/dLRAD, CHEST, 1 VIEW, NON [id number] 18:44:00Reason for exam:- >postop cardiacShould this be [...] MDReport Verified Date/Time: 05/20/2017 18:44:30 Reading Location: [facility] [id number] Consult Reading Room Electronically signed by: LISA LI M.D. on05/20/2017 06:44 PMCBC W/PLT COUNT & AUTO [id number] 18:38:00 Test Item Value Reference Range Interpretation [...] (BEAKER) (test code = 2801) OXYGEN SATURATION, [id number] 18:36:00 Test Item Value Reference Range Interpretation Comments O2 SATURATION (MEASURED) (BEAKER) 72.5 % (test code = 1455) From distal port of IJ central venous catheterSODIUM NA-STAT [id number] 18:30:00 Test Item Value Reference Range Interpretation Comments SODIUM (BEAKER) (test code = 381) 132 meq/L 135-148 L HGB/HCT (H&H) - STAT [id number] 18:30:00 Test Item Value Reference Range Interpretation Comments HEMOGLOBIN (BEAKER) (test code = 9.4 g/dL 12.0-15.0 L 410) HEMATOCRIT (BEAKER) (test code = 28.0 % 36.0-45.0 L 411) GLUCOSE-STAT [id number] 18:30:00 Test Item Value Reference Range Interpretation Comments GLUCOSE RANDOM (BEAKER) (test code 159 mg/dL 70-110 H = 652) BLOOD GAS, [id number] 18:30:00 Test Item Value Reference Range Interpretation [...] (test code = 1819) 60.0 % CALCIUM, [id number] 18:30:00 Test Item Value Reference Range Interpretation Comments CALCIUM IONIZED (BEAKER) (test 0.94 mmol/L 1.12-1.27 L code = 698) PH, BLOOD (BEAKER) (test code = 7.34 1810) POTASSIUM-STAT [id number] 18:28:00 Test Item Value Reference Range Interpretation [...] (test 0.0 % 0.0-5.0 code = 1414) [id number] 17:53:00 Test Item Value Reference Range Interpretation Comments ACTIVATED CLOTTING TIME 103 sec TEST ED AT [place] [address] (BEAKER) (test code = [place]IANO [place] 441) [address] [id number] 17:53:00 Test Item Value Reference Range Interpretation Comments ACTIVATED CLOTTING TIME 466 sec TEST ED AT [place] [address] (BEAKER) (test code = [place]IANO [place] 441) [address] [id number] 17:53:00 Test Item Value Reference Range Interpretation Comments ACTIVATED CLOTTING TIME 543 sec TEST ED AT [place] [address] ([facility]) (test code = [place]IANO [place] 441) [address] [id number] 17:53:00 Test Item Value Reference Range Interpretation Comments ACTIVATED CLOTTING TIME 549 sec TEST ED AT [place] [address] ([facility]) (test code = [place]IANO [place] 441) [address] [id number] 17:53:00 Test Item Value Reference Range Interpretation Comments ACTIVATED CLOTTING TIME 632 sec TEST ED AT [place] [address] ([facility]) (test code = [place]IANO [place] 441) [address] [id number] 17:53:00 Test Item Value Reference Range Interpretation Comments ACTIVATED CLOTTING TIME 494 sec TEST ED AT [place] [address] ([facility]) (test code = [place]IANO [place] 441) [address] [id number] 17:53:00 Test Item Value Reference Range Interpretation Comments ACTIVATED CLOTTING TIME 587 sec TEST ED AT [place] [address] ([facility]) (test code = JULIANO [place] 441) [address] [id number] 17:53:00 Test Item Value Reference Range Interpretation Comments ACTIVATED CLOTTING TIME 626 sec TEST ED AT [place] [address] ([facility]) (test code = JULIANO Osborne [place] 441) [address] [id number] 17:52:00 Test Item Value Reference Range Interpretation Comments ACTIVATED CLOTTING TIME 808 sec TEST ED AT [place] [address] ([facility]) (test code = JULIANO Osborne [facility] 441) [address] [id number] 16:54:00 Test Item Value Reference Range Interpretation Comments PARTIAL THROMBOPLASTIN TIME 40.2 seconds 22.5-36.0 H ([facility]) (test code = 760) [id number] 16:53:00 Test Item Value Reference Range Interpretation Comments FIBRINOGEN LEVEL ([facility]) (test 306 mg/dl 225-434 code = 658) PROTHROMBIN [id number] 16:50:00 Test Item Value Reference Range Interpretation Comments PROTIME ([facility]) (test code = 19.6 seconds 11.7-14.7 H 759) INR ([facility]) (test code = 370) 1.7 <=5.9 RECOMMENDED COUMADIN/WARFARIN INR THERAPY RANGESSTANDARD DOSE: 2.0 - 3.0 Includes: PROPHYLAXIS forvenous thrombosis, systemic embolization; TREATMENT for venous thrombosis and/or pulmonary embolus.HIGH RISK: Target INR is 2.5-3.5 for patients with mechanical heart valves.PLATELET [id number] 16:45:00 Test Item Value Reference Range Interpretation Comments PLATELET COUNT (BEAKER) (test 136 K/CU MM 150-450 L code = 756) POTASSIUM-STAT [id number] 16:15:00 Test Item Value Reference Range Interpretation Comments POTASSIUM (BEAKER) (test code = 4.9 meq/L 3.6-5.5 379) BLOOD GAS, [id number] 16:15:00 Test Item Value Reference Range Interpretation [...] code = 1819) 100.0 % SODIUM NA-STAT [id number] 16:15:00 Test Item Value Reference Range Interpretation Comments SODIUM (BEAKER) (test code = 381) 131 meq/L 135-148 L GLUCOSE-STAT [id number] 16:15:00 Test Item Value Reference Range Interpretation Comments GLUCOSE RANDOM (BEAKER) (test code 198 mg/dL 70-110 H = 652) HGB/HCT (H&H) - STAT [id number] 16:15:00 Test Item Value Reference Range Interpretation Comments HEMOGLOBIN (BEAKER) (test code = 7.5 g/dL 12.0-15.0 L 410) HEMATOCRIT (BEAKER) (test code = 22.0 % 36.0-45.0 L 411) CALCIUM, [id number] 16:14:00 Test Item Value Reference Range Interpretation Comments CALCIUM IONIZED (BEAKER) (test 0.91 mmol/L 1.12-1.27 L code = 698) PH, BLOOD (BEAKER) (test code = 7.39 1810) BLOOD GAS, [id number] 15:39:00 Test Item Value Reference Range Interpretation [...] code = 1819) 70.0 % SODIUM NA-STAT [id number] 15:39:00 Test Item Value Reference Range Interpretation Comments SODIUM (BEAKER) (test code = 381) 131 meq/L 135-148 L GLUCOSE-STAT [id number] 15:39:00 Test Item Value Reference Range Interpretation Comments GLUCOSE RANDOM (BEAKER) (test code 186 mg/dL 70-110 H = 652) HGB/HCT (H&H) - STAT [id number] 15:39:00 Test Item Value Reference Range Interpretation Comments HEMOGLOBIN (BEAKER) (test code = 7.5 g/dL 12.0-15.0 L 410) HEMATOCRIT (BEAKER) (test code = 22.0 % 36.0-45.0 L 411) POTASSIUM-STAT [id number] 15:38:00 Test Item Value Reference Range Interpretation Comments POTASSIUM (BEAKER) (test code = 5.3 meq/L 3.6-5.5 379) BLOOD GAS, [id number] 15:24:00 Test Item Value Reference Range Interpretation [...] code = 1819) 70.0 % SODIUM NA-STAT [id number] 15:24:00 Test Item Value Reference Range Interpretation Comments SODIUM (BEAKER) (test code = 381) 130 meq/L 135-148 L GLUCOSE-STAT [id number] 15:24:00 Test Item Value Reference Range Interpretation Comments GLUCOSE RANDOM (BEAKER) (test code 189 mg/dL 70-110 H = 652) HGB/HCT (H&H) - STAT [id number] 15:24:00 Test Item Value Reference Range Interpretation Comments HEMOGLOBIN (BEAKER) (test code = 6.7 g/dL 12.0-15.0 L 410) HEMATOCRIT (BEAKER) (test code = 20.0 % 36.0-45.0 L 411) POTASSIUM-STAT [id number] 15:23:00 Test Item Value Reference Range Interpretation Comments POTASSIUM (BEAKER) (test code = 5.4 meq/L 3.6-5.5 379) BLOOD GAS, [id number] 15:07:00 Test Item Value Reference Range Interpretation [...] code = 1819) 70.0 % SODIUM NA-STAT [id number] 15:07:00 Test Item Value Reference Range Interpretation Comments SODIUM (BEAKER) (test code = 381) 129 meq/L 135-148 L GLUCOSE-STAT [id number] 15:07:00 Test Item Value Reference Range Interpretation Comments GLUCOSE RANDOM (BEAKER) (test code 172 mg/dL 70-110 H = 652) HGB/HCT (H&H) - STAT [id number] 15:07:00 Test Item Value Reference Range Interpretation Comments HEMOGLOBIN (BEAKER) (test code = 7.1 g/dL 12.0-15.0 L 410) HEMATOCRIT (BEAKER) (test code = 21.0 % 36.0-45.0 L 411) POTASSIUM-STAT [id number] 15:04:00 Test Item Value Reference Range Interpretation Comments POTASSIUM (BEAKER) (test code = 5.0 meq/L 3.6-5.5 379) BLOOD GAS, [id number] 14:21:00 Test Item Value Reference Range Interpretation [...] code = 1819) 70.0 % SODIUM NA-STAT [id number] 14:21:00 Test Item Value Reference Range Interpretation Comments SODIUM (BEAKER) (test code = 381) 133 meq/L 135-148 L GLUCOSE-STAT [id number] 14:21:00 Test Item Value Reference Range Interpretation Comments GLUCOSE RANDOM (BEAKER) (test code 160 mg/dL 70-110 H = 652) HGB/HCT (H&H) - STAT [id number] 14:21:00 Test Item Value Reference Range Interpretation Comments HEMOGLOBIN (BEAKER) (test code = 7.5 g/dL 12.0-15.0 L 410) HEMATOCRIT (BEAKER) (test code = 22.0 % 36.0-45.0 L 411) POTASSIUM-STAT [id number] 14:20:00 Test Item Value Reference Range Interpretation Comments POTASSIUM (BEAKER) (test code = 4.7 meq/L 3.6-5.5 379) BLOOD GAS, [id number] 13:58:00 Test Item Value Reference Range Interpretation [...] code = 1819) 80.0 % SODIUM NA-STAT [id number] 13:58:00 Test Item Value Reference Range Interpretation Comments SODIUM (BEAKER) (test code = 381) 132 meq/L 135-148 L GLUCOSE-STAT [id number] 13:58:00 Test Item Value Reference Range Interpretation Comments GLUCOSE RANDOM (BEAKER) (test code 166 mg/dL 70-110 H = 652) HGB/HCT (H&H) - STAT [id number] 13:58:00 Test Item Value Reference Range Interpretation Comments HEMOGLOBIN (BEAKER) (test code = 7.5 g/dL 12.0-15.0 L 410) HEMATOCRIT (BEAKER) (test code = 22.0 % 36.0-45.0 L 411) POTASSIUM-STAT [id number] 13:57:00 Test Item Value Reference Range Interpretation Comments POTASSIUM (BEAKER) (test code = 4.7 meq/L 3.6-5.5 379) BLOOD GAS, [id number] 13:35:00 Test Item Value Reference Range Interpretation [...] (test code = 1819) 80.0 % GLUCOSE-STAT [id number] 13:35:00 Test Item Value Reference Range Interpretation Comments GLUCOSE RANDOM (BEAKER) (test code 130 mg/dL 70-110 H = 652) HGB/HCT (H&H) - STAT [id number] 13:35:00 Test Item Value Reference Range Interpretation Comments HEMOGLOBIN (BEAKER) (test code = 6.7 g/dL 12.0-15.0 L 410) HEMATOCRIT (BEAKER) (test code = 20.0 % 36.0-45.0 L 411) SODIUM NA-STAT [id number] 13:35:00 Test Item Value Reference Range Interpretation Comments SODIUM (BEAKER) (test code = 381) 133 meq/L 135-148 L POTASSIUM-STAT [id number] 13:34:00 Test Item Value Reference Range Interpretation Comments POTASSIUM (BEAKER) (test code = 4.2 meq/L 3.6-5.5 379) BLOOD GAS, [id number] 13:16:00 Test Item Value Reference Range Interpretation [...] code = 1819) 80.0 % SODIUM NA-STAT [id number] 13:16:00 Test Item Value Reference Range Interpretation Comments SODIUM (BEAKER) (test code = 381) 133 meq/L 135-148 L HGB/HCT (H&H) - STAT [id number] 13:16:00 Test Item Value Reference Range Interpretation Comments HEMOGLOBIN (BEAKER) (test code = 6.3 g/dL 12.0-15.0 L 410) HEMATOCRIT (BEAKER) (test code = 19.0 % 36.0-45.0 L 411) CALCIUM, [id number] 13:15:00 Test Item Value Reference Range Interpretation Comments CALCIUM IONIZED (BEAKER) (test 0.98 mmol/L 1.12-1.27 L code = 698) PH, BLOOD (BEAKER) (test code = 7.34 1810) BLOOD GAS, [id number] 13:15:00 Test Item Value Reference Range Interpretation [...] (test code = 1819) 80.0 % GLUCOSE-STAT [id number] 13:14:00 Test Item Value Reference Range Interpretation Comments GLUCOSE RANDOM (BEAKER) (test code = 92 mg/dL 70-110 652) POTASSIUM-STAT [id number] 13:14:00 Test Item Value Reference Range Interpretation Comments POTASSIUM (BEAKER) (test code = 3.9 meq/L 3.6-5.5 379) BLOOD GAS, [id number] 10:54:00 Test Item Value Reference Range Interpretation [...] 1819) 100.0 % HGB/HCT (H&H) - STAT [id number] 10:54:00 Test Item Value Reference Range Interpretation Comments HEMOGLOBIN (BEAKER) (test code = 9.3 g/dL 12.0-15.0 L 410) HEMATOCRIT (BEAKER) (test code = 27.0 % 36.0-45.0 L 411) SODIUM NA-STAT [id number] 10:54:00 Test Item Value Reference Range Interpretation Comments SODIUM (BEAKER) (test code = 381) 132 meq/L 135-148 L GLUCOSE-STAT [id number] 10:52:00 Test Item Value Reference Range Interpretation Comments GLUCOSE RANDOM (BEAKER) (test code = 94 mg/dL 70-110 652) POTASSIUM-STAT [id number] 10:52:00 Test Item Value Reference Range Interpretation Comments POTASSIUM (BEAKER) (test code = 4.0 meq/L 3.6-5.5 379) HEMOGLOBIN [id number] 09:50:00 Test Item Value Reference Range Interpretation Comments HEMOGLOBIN A1C (BEAKER) (test code = 10.6 % 4.3-6.1 H 368) PLATELET AGGREGATION: FUNCTION [id number] 08:27:00 Test Item Value Reference Range Interpretation Comments WEAK ADP 63 % 60-91 RESULT(BEAKER) (test code = 2135) PLATELET FUNCTION 60-100% indicates SCREEN INTERP (BEAKER) normal platelet (test code = 2173) function [id number] Toshia Post MD ([facility]) (test code = (electronic signature) 0590) PLATELET COUNT AGG 198 K/CU MM 150-450 (BEAKER) (test code = 2286) for patients on clopidogrel in past two weeksPOCT-GLUCOSE [id number] 08:11:00 Test Item Value Reference Range Interpretation Comments POC-GLUCOSE METER 116 mg/dL 70-110 H TESTED AT [facility] 6720 ([facility]) (test code = JULIANO Osborne [place] 1538) [address] [id number] 07:10:00 Test Item Value Reference Range Interpretation Comments PHOSPHORUS (BEAKER) (test code = 4.5 mg/dL 2.3-4.7 604) [id number] 07:10:00 Test Item Value Reference Range Interpretation Comments MAGNESIUM (BEAKER) (test code = 2.1 mg/dL 1.6-2.6 627) BASIC METABOLIC [id number] 07:10:00 Test Item Value Reference Range Interpretation [...] = 700) CBC W/PLT COUNT & AUTO [id number] 06:46:00 Test Item Value Reference Range Interpretation [...] PERCENT (BEAKER) (test code = 2801) CALCIUM, [id number] 06:40:00 Test Item Value Reference Range Interpretation Comments CALCIUM IONIZED (BEAKER) (test 1.06 mmol/L 1.12-1.27 L code = 698) PH, BLOOD (BEAKER) (test code = 7.39 1810) POCT-GLUCOSE [id number] 23:22:00 Test Item Value Reference Range Interpretation Comments POC-GLUCOSE METER 165 mg/dL 70-110 H TESTED AT [facility] 6720 ([facility] (test code = [place]IANO [place] 1538) [address] URINE PROTEIN ELECTROPHORESIS, [id number] 18:02:00 Test Item Value Reference Range Interpretation Comments PROTEIN, URINE 305 mg/dL 0-14 H (BEAKER) (test code = 1569) ALBUMIN URINE ELP 70.9 % (BEAKER) (test code = 1018) GAMMA GLOBULIN URINE 29.1 % (BEAKER) (test code = 1015) UPEP, ID-438 (BEAKER) No monoclonal bands (test code = 2604) detected. [id number] Rocio Galindo MD ([facility]) (test code = (electronic signature) 2532) PROTEIN ELECTROPHORESIS, [id number] 17:57:00 Test Item Value Reference Range Interpretation [...] all globulin fractions. No monoclonal bands detected. [id number] Rocio Galindo MD (BEAKER) (test code = (electronic signature) 2616) PROTEIN TOTAL SERUM, 5.5 gm/dL 6.0-8.3 L SPEP (BEAKER) (test code = 2010) POCT-GLUCOSE [id number] 17:15:00 Test Item Value Reference Range Interpretation Comments POC-GLUCOSE METER 209 mg/dL 70-110 H TESTED AT [facility] 6720 (BEAKER) (test code = JULIANO Osborne [facility] 1538) [address] BLOOD GAS, [id number] 15:54:00 Test Item Value Reference Range Interpretation [...] 36.0 % RAD, CHEST, 1 VIEW, NON [id number] 14:07:00Reason for exam:->SOB, hypoxemiaShould this be performed [...] congestion with mild interstitial edema. Signed: Eder Cespedeseport Verified Date/Time: 05/19/2017 14:07:07 Reading Location:[facility] [id number] Consult Reading Room POCT-GLUCOSE [id number] 11:26:00 Test Item Value Reference Range Interpretation Comments POC-GLUCOSE METER 262 mg/dL 70-110 H TESTED AT [facility] 6720 ([facility]) (test code = [facility] 1538) [id number] POCT-GLUCOSE [id number] 07:37:00 Test Item Value Reference Range Interpretation Comments POC-GLUCOSE METER 170 mg/dL 70-110 H TESTED AT [facility] 6720 ([facility]) (test code = [facility] 1538) [address] CALCIUM, [id number] 06:06:00 Test Item Value Reference Range Interpretation Comments CALCIUM IONIZED (BEAKER) (test 1.05 mmol/L 1.12-1.27 L code = 698) PH, BLOOD (BEAKER) (test code = 7.41 1810) [id number] 05:38:00 Test Item Value Reference Range Interpretation Comments PHOSPHORUS (BEAKER) (test code = 3.9 mg/dL 2.3-4.7 604) [id number] 05:38:00 Test Item Value Reference Range Interpretation Comments MAGNESIUM (BEAKER) (test code = 2.2 mg/dL 1.6-2.6 627) BASIC METABOLIC [id number] 05:38:00 Test Item Value Reference Range Interpretation [...] PATIEN TS. CBC W/PLT COUNT & AUTO [id number] 05:09:00 Test Item Value Reference Range Interpretation [...] PERCENT (BEAKER) (test code = 2801) POCT-GLUCOSE [id number] 22:08:00 Test Item Value Reference Range Interpretation Comments POC-GLUCOSE METER 263 mg/dL 70-110 H TESTED AT [place] [address] ([facility] ([facility] = [facility] 1538) [address] POCT-GLUCOSE [id number] 17:20:00 Test Item Value Reference Range Interpretation Comments POC-GLUCOSE METER 233 mg/dL 70-110 H TESTED AT [place] [address] ([facility]) (test code = [facility] 1538) [address] POCT-GLUCOSE [id number] 08:28:00 Test Item Value Reference Range Interpretation Comments POC-GLUCOSE METER 154 mg/dL 70-110 H TESTED AT [place] [address] ([facility]) (test code = [facility] 1538) [address] BASIC METABOLIC [id number] 06:41:00 Test Item Value Reference Range Interpretation [...] S NOT APPLICABLE FOR DIALYSIS PATIEN TS. [id number] 06:35:00 Test Item Value Reference Range Interpretation Comments PHOSPHORUS (BEAKER) (test code = 4.1 mg/dL 2.3-4.7 604) [id number] 06:35:00 Test Item Value Reference Range Interpretation Comments MAGNESIUM (BEAKER) (test code = 2.1 mg/dL 1.6-2.6 627) CALCIUM, [id number] 06:22:00 Test Item Value Reference Range Interpretation Comments CALCIUM IONIZED (BEAKER) (test 1.10 mmol/L 1.12-1.27 L code = 698) PH, BLOOD (BEAKER) (test code = 7.38 1810) CBC W/PLT COUNT & AUTO [id number] 06:04:00 Test Item Value Reference Range Interpretation [...] ABSOLUTE COUNT 6.15 K/ L 1.56-6.13 H (BEAKER) (test code = 670) LYMPHOCYTES ABSOLUTE COUNT 2.20 K/ L 1.18-3.74 (BEAKER) (test code = 414) MONOCYTES ABSOLUTE COUNT (BEAKER) 0.62 K/ L 0.24-0.36 H (test code = 415) EOSINOPHILS ABSOLUTE COUNT 0.24 K/ L 0.04-0.36 (BEAKER) (test code = 416) BASOPHILS ABSOLUTE COUNT (BEAKER) 0.06 K/ L 0.01-0.08 (test code = 417) IMMATURE GRANULOCYTES-RELATIVE 0 % 0-1 PERCENT (BEAKER) (test code = 2801) POCT-GLUCOSE [id number] 03:44:00 Test Item Value Reference Range Interpretation Comments POC-GLUCOSE METER 220 mg/dL 70-110 H TESTED AT [facility] 6720 (BEAKER) (test code = JULIANO Osborne [facility] 1538) [address] POCT-GLUCOSE [id number] 18:27:00 Test Item Value Reference Range Interpretation Comments POC-GLUCOSE METER 256 mg/dL 70-110 H TESTED AT [facility] 6720 (BEAKER) (test code = JULIANO Osborne [place] 1538) [address] POCT-GLUCOSE [id number] 15:45:00 Test Item Value Reference Range Interpretation Comments POC-GLUCOSE METER 278 mg/dL 70-110 H TESTED AT [facility] 6720 (BEAKER) (test code = JULIANO Osborne [place] 1538) [address] POCT-GLUCOSE [id number] 13:22:00 Test Item Value Reference Range Interpretation Comments POC-GLUCOSE METER 278 mg/dL 70-110 H TESTED AT [facility] 6720 (BEAKER) (test code = [facility] Dylon [place] 1538) [address] PLATELET AGGREGATION: FUNCTION [id number] 13:18:00 Test Item Value Reference Range Interpretation Comments WEAK ADP 66 % 60-91 RESULT(BEAKER) (test code = 2135) PLATELET FUNCTION 60-100% indicates SCREEN INTERP (BEAKER) normal platelet (test code = 2173) function [id number] Rigoberto Duenas MD (BEAKER) (test code = (electronic signature) 7854) PLATELET COUNT AGG 204 K/CU MM 150-450 (BEAKER) (test code = 2656) POCT-GLUCOSE [id number] 08:27:00 Test Item Value Reference Range Interpretation Comments POC-GLUCOSE METER 189 mg/dL 70-110 H TESTED AT [facility] 6720 (BEAKER) (test code = [place]ULIANO [place] 1538) [address] CALCIUM, [id number] 06:12:00 Test Item Value Reference Range Interpretation Comments CALCIUM IONIZED (BEAKER) (test 1.07 mmol/L 1.12-1.27 L code = 698) PH, BLOOD (BEAKER) (test code = 7.36 1810) [id number] 05:43:00 Test Item Value Reference Range Interpretation Comments PHOSPHORUS (BEAKER) (test code = 3.6 mg/dL 2.3-4.7 604) [id number] 05:43:00 Test Item Value Reference Range Interpretation Comments MAGNESIUM (BEAKER) (test code = 2.1 mg/dL 1.6-2.6 627) BASIC METABOLIC [id number] 05:43:00 Test Item Value Reference Range Interpretation [...] PATIEN TS. CBC W/PLT COUNT & AUTO [id number] 05:05:00 Test Item Value Reference Range Interpretation [...] EOSINOPHILS ABSOLUTE COUNT 0.27 K/ L 0.04-0.36 ([facility]) (test code = 416) BASOPHILS ABSOLUTE COUNT ([facility]) 0.06 K/ L 0.01-0.08 (test code = 417) IMMATURE GRANULOCYTES-RELATIVE 0 % 0-1 PERCENT ([facility]) (test code = 2801) POCT-GLUCOSE [id number] 21:32:00 Test Item Value Reference Range Interpretation Comments POC-GLUCOSE METER 176 mg/dL 70-110 H TESTED AT [place] [address] ([facility]) (test code = [facility] Dylon [facility] 1538) [address] POCT-GLUCOSE [id number] 20:27:00 Test Item Value Reference Range Interpretation Comments POC-GLUCOSE METER 161 mg/dL 70-110 H TESTED AT [place] [address] ([facility]) (test code = [facility] 1538) [address] POCT-GLUCOSE [id number] 18:23:00 Test Item Value Reference Range Interpretation Comments POC-GLUCOSE METER 185 mg/dL 70-110 H TESTED AT [place] [address] ([facility]) (test code = [facility] 1538) [address] POCT-GLUCOSE [id number] 13:26:00 Test Item Value Reference Range Interpretation Comments POC-GLUCOSE METER 282 mg/dL 70-110 H TESTED AT [place] [address] ([facility]) (test code = [facility] 1538) [address] URINE [id number] 10:12:00 Test Item Value Reference Range Interpretation Comments CULTURE ([facility]) (test >100,000 col/mL skin code = 1095) todd POCT-GLUCOSE [id number] 09:01:00 Test Item Value Reference Range Interpretation Comments POC-GLUCOSE METER 268 mg/dL 70-110 H TESTED AT [place] [address] ([facility]) (test code = [facility] 1538) [address] CALCIUM, [id number] 05:39:00 Test Item Value Reference Range Interpretation Comments CALCIUM IONIZED ([facility]) (test 0.84 mmol/L 1.12-1.27 L code = 698) PH, BLOOD ([facility]) (test code = 7.35 1810) BASIC METABOLIC [id number] 05:07:00 Test Item Value Reference Range Interpretation [...] S NOT APPLICABLE FOR DIALYSIS PATIEN TS. [id number] 05:06:00 Test Item Value Reference Range Interpretation Comments PHOSPHORUS (BEAKER) (test code = 3.2 mg/dL 2.3-4.7 604) [id number] 05:06:00 Test Item Value Reference Range Interpretation Comments MAGNESIUM (BEAKER) (test code = 2.3 mg/dL 1.6-2.6 627) CBC W/PLT COUNT & AUTO [id number] 04:42:00 Test Item Value Reference Range Interpretation [...] = 2801) RHEUMATOID FACTOR AB, REFLEX TO [id number] 01:52:00 Test Item Value Reference Range Interpretation Comments RHEUMATOID FACTOR (BEAKER) (test Negative code = 573) POCT-GLUCOSE [id number] 21:57:00 Test Item Value Reference Range Interpretation Comments POC-GLUCOSE METER 105 mg/dL 70-110 TESTED AT [facility] 6720 ([facility]) (test code = JULIANO [place] 1538) [address] POCT-GLUCOSE [id number] 18:11:00 Test Item Value Reference Range Interpretation Comments POC-GLUCOSE METER 312 mg/dL 70-110 H Notified R Sonya PIERRE/TESTED ([facility]) (test code = AT [facility] 67[address] [place] 1538) [facility] 7703 0 PET, CARDIAC PERFUSION MULTIPLE STUDIES, REST AND [id number] 16:28:00 Reason for exam:->pvcs, known cadFINAL REPORT PROCEDURE: Rest/Stress MYOCARDIAL PERFUSION PET with regadenoson\XA9\ CPT CODE: 58742 INDICATION: Defined extent and severity of known [...] is 23%. LVEF at stress is 36%. Mononitrotoluene Operator CT images revealed a right pleural [...] pleural and pericardial effusions. 7. No previous [facility] study for comparison. NONINVASIVE RISK STRATIFICATION: The above findings are considered high risk (>3% annual mortality rate) based on the following criteria: - Severe resting left ventricular dysfunction (LVEF 35%)- Stress-induced large perfusion defect (particularly if anterior)(JACC. 2012;59(9):857-81.) Signed: Last Lopez Verified Date/Time: 05/15/2017 16:28:12 Reading Location: [address] ReadingRoom RAD, CHEST, 1 VIEW, NON [id number] 15:56:00Reason for exam:->SOBShould this be performed at the bedside?->YesFINAL REPORT Comparison: 05/14/2017 TECHNIQUE: Single view of the chest FINDINGS: There is a small right pleural effusion with nonspecific airspace disease. This is unchanged. Left lung is grossly clear. Cardiac silhouette is enlarged. IMPRESSION: 1. No acute cardiopulmonary disease. Signed: Sixto Monk MDReport Verified Date/Time: 05/15/2017 15:56:39 Reading Location: [facility] iology Reading Room POCT-GLUCOSE [id number] 12:54:00 Test Item Value Reference Range Interpretation Comments POC-GLUCOSE METER 308 mg/dL 70-110 H Notified Dylon Hassan MD/NATHAN (ROBERT) (test code = AT [facility] 67[address] [place] 1538) [facility] 7703 0 U/S, RENAL WITH [id number] 11:04:00Reason for exam:->arturo, htnShould this be performed [...] the resistive indices throughout. Signed: Anahi Hobbs MDReport Verified Date/Time: 05/15/2017 11:04:01 Reading Location: [address] Ultrasound Reading Room ANA TITER AND [id number] 10:57:00 Test Item Value Reference Range Interpretation Comments ROGER TITER (BEAKER) (test code = :160 1541) ROGER PATTERN (BEAKER) (test code = Speckled 1781) ANTI-NUCLEAR ANTIBODY (ROGER)2017-05-15 10:56:00 Test Item Value Reference Range Interpretation Comments ANTI-NUCLEAR ANTIBODY (ROGER) (BEAKER) Positive Negative A (test code = 418) CALCIUM, [id number] 06:00:00 Test Item Value Reference Range Interpretation Comments CALCIUM IONIZED (BEAKER) (test 1.07 mmol/L 1.12-1.27 L code = 698) PH, BLOOD (BEAKER) (test code = 7.28 1810) HEPATITIS PANEL, [id number] 05:01:00 Test Item Value Reference Range Interpretation Comments HEPATITIS A IGM ANTIBODY (BEAKER) Nonreactive Nonreactive (test code = 498) HEPATITIS B CORE IGM ANTIBODY Nonreactive Nonreactive (BEAKER) (test code = 645) HEPATITIS C ANTIBODY (BEAKER) Nonreactive Nonreactive (test code = 367) HEPATITIS B SURFACE ANTIGEN (2) Nonreactive Nonreactive (BEAKER) (test code = 2585) BASIC METABOLIC [id number] 04:48:00 Test Item Value Reference Range Interpretation [...] NOT APPLICABLE FOR DIALYSIS PATIEN TS. URIC [id number] 04:41:00 Test Item Value Reference Range Interpretation Comments URIC ACID (BEAKER) (test code = 10.3 mg/dL 2.6-7.2 H 773) [id number] 04:41:00 Test Item Value Reference Range Interpretation Comments MAGNESIUM (BEAKER) (test code = 2.0 mg/dL 1.6-2.6 627) [id number] 04:41:00 Test Item Value Reference Range Interpretation Comments PHOSPHORUS (BEAKER) (test code = 4.2 mg/dL 2.3-4.7 604) COMPLEMENT COMPONENT [id number] 04:38:00 Test Item Value Reference Range Interpretation Comments C4 COMPLEMENT (BEAKER) (test code = 28 mg/dL 15-57 394) COMPLEMENT COMPONENT [id number] 04:38:00 Test Item Value Reference Range Interpretation Comments C3 COMPLEMENT (BEAKER) (test code = 103 mg/dL 82-193 393) CBC W/PLT COUNT & AUTO [id number] 04:22:00 Test Item Value Reference Range Interpretation [...] LYMPHOCYTES ABSOLUTE COUNT 3.35 K/ L 1.18-3.74 (BEAKER) (test code = 414) MONOCYTES ABSOLUTE COUNT (BEAKER) 0.59 K/ L 0.24-0.36 H (test code = 415) EOSINOPHILS ABSOLUTE COUNT 0.21 K/ L 0.04-0.36 (BEAKER) (test code = 416) BASOPHILS ABSOLUTE COUNT (BEAKER) 0.06 K/ L 0.01-0.08 (test code = 417) IMMATURE GRANULOCYTES-RELATIVE 0 % 0-1 PERCENT (BEAKER) (test code = 2801) POCT-GLUCOSE [id number] 21:46:00 Test Item Value Reference Range Interpretation Comments POC-GLUCOSE METER 173 mg/dL 70-110 H TESTED AT [place] [address] ([facility]) (test code = [facility] 1538) [address] POCT-GLUCOSE [id number] 21:46:00 Test Item Value Reference Range Interpretation Comments POC-GLUCOSE METER 154 mg/dL 70-110 H TESTED AT [place] [address] ([facility]) (test code = [facility] 1538) [address] POCT-GLUCOSE [id number] 18:17:00 Test Item Value Reference Range Interpretation Comments POC-GLUCOSE METER 175 mg/dL 70-110 H TESTED AT [place] [address] ([facility]) (test code = [facility] 1538) [address] RAD, CHEST, 1 VIEW, NON [id number] 14:56:00Reason for exam:->SOBShould this be performed at the bedside?->YesFINAL REPORT INDICATION: SOB COMPARISON: May 13, 2017 TECHNIQUE: Chest radiograph, single view, portable technique. FINDINGS / IMPRESSION: Enlarged heart shadow, small rightpleural effusion, and pulmonary venous congestion, again demonstrated. No pneumothorax or consolidation. Osseous structures unremarkable. Signed: Satnam Jean MDReport Verified Date/Time: 05/14/2017 14:56:58 Reading Location: [facility] Reading Room POCT-GLUCOSE [id number] 12:18:00 Test Item Value Reference Range Interpretation Comments POC-GLUCOSE METER 313 mg/dL 70-110 H TESTED AT [facility] 6720 (BEAKER) (test code = JULIANO [place] 1538) [address] HIV-1 ANTIGEN WITH HIV-1/2 [id number] 12:07:00 Test Item Value Reference Range Interpretation Comments HIV-1 ANTIGEN WITH HIV 1\T\2 Nonreactive Nonreactive ANTIBODY (2) (BEAKER) (test code = 2586) CALCIUM, [id number] 06:37:00 Test Item Value Reference Range Interpretation Comments CALCIUM IONIZED (BEAKER) (test 1.08 mmol/L 1.12-1.27 L code = 698) PH, BLOOD (BEAKER) (test code = 7.25 1810) BASIC METABOLIC [id number] 06:26:00 Test Item Value Reference Range Interpretation [...] pg/mL 0-100 H (test code = 700) [id number] 06:25:00 Test Item Value Reference Range Interpretation Comments PHOSPHORUS (BEAKER) (test code = 5.7 mg/dL 2.3-4.7 H 604) [id number] 06:25:00 Test Item Value Reference Range Interpretation Comments MAGNESIUM (BEAKER) (test code = 1.5 mg/dL 1.6-2.6 L 627) CBC W/PLT COUNT & AUTO [id number] 06:07:00 Test Item Value Reference Range Interpretation [...] PERCENT (BEAKER) (test code = 2801) POCT-GLUCOSE [id number] 22:38:00 Test Item Value Reference Range Interpretation Comments POC-GLUCOSE METER 262 mg/dL 70-110 H TESTED AT [facility] 6720 (BEAKER) (test code = JULIANO Osborne [place] 1538) [address] PROTEIN, RANDOM [id number] 22:18:00 Test Item Value Reference Range Interpretation Comments PROTEIN, URINE (BEAKER) (test code 641 mg/dL 0-14 H = 1569) CREATININE, RANDOM [id number] 22:07:00 Test Item Value Reference Range Interpretation Comments CREATININE URINE (BEAKER) (test 124.9 mg/dL code = 375) Reference Range: No NormalsURINALYSIS W/ [id number] 22:03:00 Test Item Value Reference Range Interpretation [...] 1585) SOURCE(BEAKER) (test code = Urine, Voided 3132) [id number] 19:49:00 Test Item Value Reference Range Interpretation Comments SODIUM (BEAKER) (test 136 meq/L 136-145 code = 381) POTASSIUM (BEAKER) 5.1 meq/L 3.5-5.1 Specimen slightly (test code = 379) hemolyzed CHLORIDE (BEAKER) 104 meq/L 98-107 (test code = 382) CO2 (BEAKER) (test 25 meq/L 22-29 code = 355) Call if K > 5POCT-GLUCOSE [id number] 11:37:00 Test Item Value Reference Range Interpretation Comments POC-GLUCOSE METER 293 mg/dL 70-110 H TESTED AT [facility] 6720 (BEAKER) (test code = JULIANO Osborne [facility] 1538) [address] RAD, CHEST, 1 VIEW, NON [id number] 10:22:00Reason for exam:->SOBShould this be performed at the bedside?->YesFINAL REPORT Chest one view Discussion: There is cardiomegaly and interstitial congestion. A small right-sided effusion is noted. No pneumothorax. IMPRESSIONS: Suspected CHF. Signed: Jeannette Nava Verified Date/Time: 05/13/2017 10:22:34 Reading Location: [facility] Radiology Reading Room POCT-GLUCOSE METER 2017-05-13 08:34:00 Test Item Value Reference Range Interpretation Comments POC-GLUCOSE METER 178 mg/dL 70-110 H TESTED AT [facility] 6720 (BEAKER) (test code = [place]ULIANO [place] 1538) [address] POCT-GLUCOSE [id number] 06:53:00 Test Item Value Reference Range Interpretation Comments POC-GLUCOSE METER 167 mg/dL 70-110 H TESTED AT [facility] 6720 (BEAKER) (test code = JULIANO [place] 1538) [address] [id number] 04:48:00 Test Item Value Reference Range Interpretation Comments BLOOD UREA NITROGEN (BEAKER) (test 36 mg/dL 7-21 H code = 354) [id number] 04:48:00 Test Item Value Reference Range Interpretation Comments SODIUM (BEAKER) (test code = 381) 139 meq/L 136-145 POTASSIUM (BEAKER) (test code = 5.2 meq/L 3.5-5.1 H 379) CHLORIDE (BEAKER) (test code = 382) 109 meq/L 98-107 H CO2 (BEAKER) (test code = 355) 23 meq/L 22-29 [id number] 04:48:00 Test Item Value Reference Range Interpretation [...] (BEAKER) (test code = 412) [facility]LET COUNT [facility] (test 194 K/CU MM 150-450 code = 756) MEAN PLATELET VOLUME (BEAKER) 10.9 fL 9.4-12.3 (test code = 754) NUCLEATED RED BLOOD CELLS 0 /100 WBC 0-0 ([facility]) (test code = 413) [id number] 23:29:00 Test Item Value Reference Range Interpretation Comments ACTIVATED CLOTTING TIME 136 sec TEST ED AT [place] [address] ([facility]) (test code = JULIANO Osborne [place] [address]) [address] [id number] 20:13:00 Test Item Value Reference Range Interpretation Comments ACTIVATED CLOTTING TIME 175 sec TEST ED AT [place] [address] ([facility]) (test code = JULIANO Osborne [place] [address]) [address] [id number] 18:36:00 Test Item Value Reference Range Interpretation Comments ACTIVATED CLOTTING TIME 202 sec TEST ED AT [place] [address] ([facility]) (test code = JULIANO Osborne [place] [address]) [address] [id number] 18:03:00 Test Item Value Reference Range Interpretation Comments ACTIVATED CLOTTING TIME 208 sec TEST ED AT [place] [address] ([facility]) (test code = JULIANO Osborne [place] [address]) [address] BASIC METABOLIC [id number] 11:57:00 Test Item Value Reference Range Interpretation [...] NOT APPLICABLE FOR DIALYSIS PATIEN TS. PROTHROMBIN [id number] 11:15:00 Test Item Value Reference Range Interpretation [...] if on CoumadinCBC W/PLT COUNT & AUTO [id number] 11:01:00 Test Item Value Reference Range Interpretation [...] PERCENT (BEAKER) (test code = 2801) POCT-GLUCOSE [id number] 12:35:00 Test Item Value Reference Range Interpretation Comments POC-GLUCOSE METER 249 mg/dL 70-110 H TESTED AT [place] [address] (BEAKER) (test code = [facility] Dylon [facility] 1538) [address] POCT-GLUCOSE [id number] 09:10:00 Test Item Value Reference Range Interpretation Comments POC-GLUCOSE METER 155 mg/dL 70-110 H TESTED AT [place] [address] (BEAKER) (test code = [facility] 1538) [address] BASIC METABOLIC [id number] 05:39:00 Test Item Value Reference Range Interpretation [...] S NOT APPLICABLE FOR DIALYSIS PATIEN TS. [id number] 05:27:00 Test Item Value Reference Range Interpretation Comments PHOSPHORUS (BEAKER) (test code = 5.0 mg/dL 2.3-4.7 H 604) [id number] 05:27:00 Test Item Value Reference Range Interpretation Comments MAGNESIUM (BEAKER) (test code = 1.6 mg/dL 1.6-2.6 627) POCT-GLUCOSE [id number] 05:25:00 Test Item Value Reference Range Interpretation Comments POC-GLUCOSE METER 144 mg/dL 70-110 H TESTED AT [place] [address] ([facility]) ([facility] = [facility] 1538) [address] PROTHROMBIN [id number] 04:58:00 Test Item Value Reference Range Interpretation Comments PROTIME (BEAKER) (test code = 14.2 seconds 11.7-14.7 759) INR (BEAKER) (test code = 370) 1.1 <=5.9 RECOMMENDED COUMADIN/WARFARIN INR THERAPY RANGESSTANDARD DOSE: 2.0 - 3.0 Includes: PROPHYLAXIS forvenous thrombosis, systemic embolization; TREATMENT for venous thrombosis and/or pulmonary embolus.HIGH RISK: Target INR is 2.5-3.5 for patients with mechanical heart valves.POCT-GLUCOSE [id number] 23:55:00 Test Item Value Reference Range Interpretation Comments POC-GLUCOSE METER 86 mg/dL 70-110 TESTED AT [facility] 6720 ([facility]) (test code = [place] [address] 1538) B-TYPE NATRIURETIC FACTOR (BNP)2017-04-22 18:13:00 Test Item Value Reference Range Interpretation Comments B-TYPE NATRIURETIC PEPTIDE 1203 pg/mL 0-100 H (BEAKER) (test code = 700) POCT-GLUCOSE [id number] 17:36:00 Test Item Value Reference Range Interpretation Comments POC-GLUCOSE METER 259 mg/dL 70-110 H TESTED AT [facility] 6720 ([facility]) (test code = [facility] 1538) [address] HEMOGLOBIN [id number] 14:24:00 Test Item Value Reference Range Interpretation Comments HEMOGLOBIN A1C (BEAKER) (test code = 10.5 % 4.3-6.1 H 368) POCT-GLUCOSE [id number] 12:34:00 Test Item Value Reference Range Interpretation Comments POC-GLUCOSE METER 207 mg/dL 70-110 H TESTED AT [facility] 6720 ([facility]) (test code = [facility] 1538) [address] [id number] 07:53:00 Test Item Value Reference Range Interpretation Comments PHOSPHORUS (BEAKER) (test code = 3.9 mg/dL 2.3-4.7 604) [id number] 07:53:00 Test Item Value Reference Range Interpretation Comments MAGNESIUM (BEAKER) (test code = 1.6 mg/dL 1.6-2.6 627) BASIC METABOLIC [id number] 07:53:00 Test Item Value Reference Range Interpretation [...] NOT APPLICABLE FOR DIALYSIS PATIEN TS. TROPONIN [id number] 07:29:00 Test Item Value Reference Range Interpretation Comments TROPONIN I (ROBERT) (test code = 0.05 ng/mL 0.00-0.03 H [...] acidosis, acute neurological disease, and persistent tachyarrhythmia.PROTHROMBIN [id number] 07:01:00 Test Item Value Reference Range Interpretation Comments PROTIME (ROBERT) (test code = 13.8 seconds 11.7-14.7 759) INR (ROBERT) (test code = 370) 1.1 <=5.9 RECOMMENDED COUMADIN/WARFARIN INR THERAPY RANGESSTANDARD DOSE: 2.0 - 3.0 Includes: PROPHYLAXIS forvenous thrombosis, systemic embolization; TREATMENT for venous thrombosis and/or pulmonary embolus.HIGH RISK: Target INR is 2.5-3.5 for patients with mechanical heart valves.POCT-GLUCOSE [id number] 06:28:00 Test Item Value Reference Range Interpretation Comments POC-GLUCOSE METER 198 mg/dL 70-110 H TESTED AT [facility] 6720 (ROBERT) (test code = JULIANO [place] 1538) [address] CREATINE KINASE (CK), TOTAL AND [id number] 00:49:00 Test Item Value Reference Range Interpretation Comments CREATINE KINASE TOTAL (SERVANDOAKER) 69 U/L 29-200 (test code = 380) CREATINE KINASE-MB (ROEBRT) (test 4.3 ng/mL 0.0-6.6 code = 750) CREATINE KINASE-MB INDEX (SERVANDOAKER) 6.2 % (test code = 395) CK-MB Reference Range:<6.7 Normal6.7-10.0 Borderline>10.0 AbnormalTROPONIN [id number] 00:49:00 Test Item Value Reference Range Interpretation Comments TROPONIN I (ROBERT) (test code = 0.05 ng/mL 0.00-0.03 H [...] acidosis, acute neurological disease, and persistent tachyarrhythmia.POCT-GLUCOSE [id number] 20:44:00 Test Item Value Reference Range Interpretation Comments POC-GLUCOSE METER 269 mg/dL 70-110 H TESTED AT [facility] 6720 (ROBERT) (test code = [place]IANO [place] 1536) [id number]
[2019-10-11 17:17] LABS: Albumin 2.4 g/dL (3.4-5.0); Bilirubin Direct 0.2 mg/dL (0-0.2); Bilirubin Total 0.6 mg/dL (0.2-1.0); Magnesium 2.1 mg/dL (1.8-2.4); Potassium 4.6 mmol/L (3.5-5.1); Protein, Total 6.4 g/dL (6.4-8.2); Troponin (Emerg Dept Use Only) 0.03 ng/mL (0.0-0.045)
--- NOTE | 2019-10-11 17:18 | RAD REPORT ---
EXAM DESCRIPTION: RAD - Chest Single View - 10/11/2019 5:11 pm CLINICAL HISTORY: SOB Chest pain. COMPARISON: Chest Single View dated 09/27/2019; Chest Single View dated 07/06/2019; Chest Pa And Lat (2 Views) dated 06/18/2019; Chest Single View dated 06/17/2019 FINDINGS: Portable technique limits examination quality. Mild interstitial pulmonary edema seen. Small left and small to moderate right pleural effusion again seen, essentially unchanged. The heart is moderately enlarged. Sternotomy wires are present. No disp laced fractures. IMPRESSION: Mild CHF.
[2019-10-11] MEDS ORDERED: FUROSEMIDE 40 MG/4 ML VIAL ONE (17:28)
--- NOTE | 2019-10-11 18:05 | EDPHYS ---
Physician Documentation [facility] Name: Christy Priest Age: 64 yrs Sex: Female : 1955 Arrival Date: 10/11/2019 Time: 16:04 Bed 19 Private MD: ED Physician Alessio Parry HPI: 10/10 16:30 This 64 yrs old Female presents to ER via Unassigned with complaints of cp Shortness Of Breath - covid +. 16:30 The patient has shortness of breath at rest. cp Historical: - Allergies: 16:55 Augmentin; sv 16:55 basil; sv 16:55 Clindamycin; sv 16:55 HYDROCODONE; sv 16:55 Morphine; sv 16:55 Nitroglycerin; sv 16:55 Tramadol HCl; sv 16:55 Trazodone; sv 16:55 Vancomycin; sv 16:55 Vicodin; sv - Home Meds: 23:36 gabapentin Oral [Active]; Hydralazine Oral [Active]; insulin [Active]; Lasix Oral lp1 [Active]; Plavix Oral [Active]; - PMHx: 16:55 CHF; COPD; Diabetes - IDDM; ESRD; High Cholesterol; Hypertension; triple bypass; sv uterine cancer; - PSHx: 16:55 Cholecystectomy; Hysterectomy; leg surgery; BLE stents; left foot; sv - Immunization history:: Adult Immunizations up to date. - Social history:: Smoking status: . ROS: 16:35 Constitutional: Negative for body aches, chills, fever, poor PO intake. cp 16:35 Eyes: Negative for injury, pain, redness, and discharge. cp 16:35 ENT: Negative for ear pain, sore throat, difficulty swallowing, difficulty handling secretions. 16:35 Cardiovascular: Positive for edema, Negative for chest pain. 16:35 Respiratory: Positive for shortness of breath, at rest. Negative for cough, wheezing. 16:35 Abdomen/GI: Negative for abdominal pain, nausea, vomiting, and diarrhea. 16:35 Neuro: Negative for altered mental status, headache. 16:35 All other systems are negative. Exam: 16:40 Constitutional: The patient appears in no acute distress, alert, awake, cp non-diaphoretic, non-toxic, well developed, well nourished, uncomfortable. 16:40 Head/Face: Normocephalic, atraumatic. cp 16:40 Eyes: Periorbital structures: mild swelling noted below right eye, Conjunctiva: normal, no exudate, no injection, Sclera: no appreciated abnormality, Lids and lashes: appear normal, bilaterally. 16:40 ENT: External ear(s): are unremarkable, Nose: is normal, Mouth: Lips: moist, Oral mucosa: moist, Posterior pharynx: Airway: no evidence of obstruction, patent. 16:40 Chest/axilla: Inspection: normal, Palpation: is normal, no crepitus, no tenderness. 16:40 Cardiovascular: Rate: normal, Edema: ankle edema, that is moderate, JVD: is not appreciated. 16:40 Respiratory: the patient does not display signs of respiratory distress, Respirations: labored breathing, is not present, accessory muscle usage, is absent, intercostal retractions, are absent, Breath sounds: decreased breath sounds, that are moderate, throughout, stridor, is not appreciated, wheezing: is not appreciated. 16:40 Abdomen/GI: Inspection: abdomen appears normal, Palpation: abdomen is soft and non-tender, in all quadrants. 17:37 ECG was reviewed by the Attending Physician. cp Vital Signs: 16:10 BP 153 / 78; Pulse 71; Resp 20; Temp 97.5; Pulse Ox 96% on R/A; sv 17:00 BP 164 / 76; Pulse 73; Resp 14; Pulse Ox 100% on R/A; sv 18:00 BP 173 / 91; Pulse 76; Resp 13; Pulse Ox 100% on R/A; sv 18:45 BP 173 / 86; Pulse 73; Resp 15; Pulse Ox 100% on R/A; sv MDM: 16:14 Patient medically screened. cp 17:59 Data reviewed: vital signs, nurses notes, lab test result(s), EKG, radiologic studies, cp plain films. Test interpretation: by ED physician or midlevel provider: ECG. Physician consultation: Mk VOGEL was called at 17:55, was contacted at 17:55, regarding admission, to the telemetry unit. patient's condition. 10/10 16:27 Order name: Basic Metabolic Panel; Complete Time: 17:35 cp 10/10 17:35 Interpretation: Normal except: CL 112; GLUC 110; BUN 33; CRE 2.03; GFR 25; CA 7.6. cp 10/10 16:27 Order name: CBC with Diff; Complete Time: 17:35 cp 10/10 17:35 Interpretation: Normal except: RBC 2.64; HGB 7.1; HCT 23.2; MCH 26.9; MCHC 30.7; RDW cp 19.6; MPV 7.5. 10/10 16:27 Order name: LFT's; Complete Time: 17:35 cp 10/10 17:58 Interpretation: Normal except: AST 39; ALK 147; ALB 2.4; GLOB 4.0; A/G 0.6. cp 10/10 16:27 Order name: Magnesium; Complete Time: 17:35 cp 10/10 16:27 Order name: NT PRO-BNP; Complete Time: 17:35 cp 10/10 17:59 Interpretation: Abnormal: NT PRO-BNP 23071. cp 10/10 16:27 Order name: PT-INR; Complete Time: 17:38 cp 10/10 17:39 Interpretation: Abnormal: PT 15.0. cp 10/10 16:27 Order name: Troponin (emerg Dept Use Only); Complete Time: 17:35 cp 10/10 16:27 Order name: Procalcitonin; Complete Time: 17:35 cp 10/10 16:27 Order name: Lactate; Complete Time: 17:35 cp 10/10 16:27 Order name: Blood Culture Adult (2) cp 10/10 19:20 Order name: Type and Screen EDNE 10/10 19:20 Order name: C-Reactive Protein EDMS 10/10 19:20 Order name: D-Dimer; Complete Time: 07:31 EDMS 10/10 19:20 Order name: Ferritin EDMS 10/10 19:20 Order name: Lactic Dehydrogenase EDMS 10/10 19:20 Order name: CBC with Automated Diff EDMS 10/10 19:20 Order name: CBC with Automated Diff; Complete Time: 07:31 EDMS 10/10 19:20 Order name: Comprehensive Metabolic Panel EDMS 10/10 19:20 Order name: Comprehensive Metabolic Panel; Complete Time: 07:31 EDMS 10/10 19:20 Order name: Lactate EDMS 10/10 19:20 Order name: Lactate; Complete Time: 07:31 EDMS 10/10 19:20 Order name: Magnesium EDMS 10/10 19:20 Order name: Magnesium; Complete Time: 07:31 EDMS 10/10 19:20 Order name: NT PRO-BNP EDMS 10/10 19:20 Order name: NT PRO-BNP; Complete Time: 07:31 EDMS 10/10 19:20 Order name: Phosphorus EDMS 10/10 19:20 Order name: Phosphorus; Complete Time: 07:31 EDMS 10/10 19:20 Order name: Hematocrit; Complete Time: 07:31 EDMS 10/10 19:20 Order name: Hemoglobin; Complete Time: 07:31 EDMS 10/11 02:06 Order name: Antibody Identification EDMS 10/10 16:27 Order name: XRAY Chest (1 view); Complete Time: 17:35 cp 10/10 17:36 Interpretation: Report review. cp 10/10 16:27 Order name: EKG; Complete Time: 16:27 cp 10/10 16:27 Order name: Cardiac monitoring; Complete Time: 16:54 cp 10/10 16:27 Order name: EKG - Nurse/Tech; Complete Time: 17:34 cp 10/10 16:27 Order name: IV Saline Lock; Complete Time: 16:54 cp 10/10 16:27 Order name: Labs collected and sent; Complete Time: 16:54 cp 10/10 16:27 Order name: O2 Per Protocol; Complete Time: 16:54 cp 10/10 16:27 Order name: O2 Sat Monitoring; Complete Time: 16:54 cp 10/10 19:20 Order name: NPO EDMS 10/11 02:06 Order name: Antigen type EDMS 10/11 06:17 Order name: Lactic Dehydrogenase; Complete Time: 07:31 EDMS 10/11 06:17 Order name: C-Reactive Protein; Complete Time: 07:31 EDMS 10/11 06:17 Order name: Ferritin; Complete Time: 07:31 EDMS 10/11 16:59 Order name: Basic Metabolic Panel EDMS 10/11 16:59 Order name: NT PRO-BNP EDMS 10/11 16:59 Order name: Iron EDMS 10/11 16:59 Order name: Ferritin EDMS 10/11 17:01 Order name: CBC with Automated Diff EDMS 10/11 17:01 Order name: Retic Count EDMS 10/11 17:05 Order name: Lactate EDMS EC:37 Rate is 75 beats/min. Rhythm is regular. MT interval is normal. QRS interval is cp prolonged at 106 msec. QT interval is normal. T waves are Inverted in leads I, aVL, V6. Interpreted by me. Reviewed by me. Administered Medications: 17:34 Drug: Lasix 40 mg Route: IVP; Site: right forearm; sv 18:07 Follow up: Response: No adverse reaction sv Disposition: 10/12 08:20 Co-signature as Attending Physician, Alessio Parry MD I agree with the [facility] plan of care. Disposition: 10/12/19 21:27 Hospitalization ordered by Annmarie Carrasco for Inpatient Admission. Preliminary diagnosis is Diastolic (congestive) heart failure. - Bed requested for [facility] ER HOLD. - Status is Inpatient Admission. lp1 - Condition is Fair. - Problem is an acute exacerbation. - Symptoms are unchanged. Signatures: Dispatcher [employer] EDNE Edith Alaniz RN RN sv Anderson, Corey, MD MD cha Pena, Laura, RN RN lp1 Alessio Zarate PA PA cp Garcia, Cindy, RN RN cg Corrections: (The following items were deleted from the chart) 10/10 17:35 17:35 Normal except: CL 112; GLUC 110; BUN 33; CRE 2.03; GFR 25. cp cp 20:26 18:04 Hospitalization Ordered by Nimesh Barreto DO for Inpatient Admission. Preliminary cg diagnosis is Unspecified combined systolic (congestive) and diastolic (congestive) heart failure; Pulmonary edema; Anemia in other chronic diseases classified elsewhere; Unspecified kidney failure. Bed requested for Telemetry/MedSurg (Inpatient). Status is Inpatient Admission. Condition is Stable. Problem is an acute exacerbation. Symptoms are unchanged. cp 10/11 19:15 10/10 20:26 10/11/2019 18:04 Hospitalization Ordered by Nimesh Barreto DO for Inpatient cg Admission. Preliminary diagnosis is Unspecified combined systolic (congestive) and diastolic (congestive) heart failure; Pulmonary edema; Anemia in other chronic diseases classified elsewhere; Unspecified kidney failure. Bed requested for [facility] ER HOLD. Status is Inpatient Admission. Condition is Stable. Problem is an acute exacerbation. Symptoms are unchanged. cg 10/11 19:15 19:15 10/11/2019 18:04 Hospitalization Ordered by Nimesh Prezas DO for Inpatient cg Admission. Preliminary diagnosis is Unspecified combined systolic (congestive) and diastolic (congestive) heart failure; Pulmonary edema; Anemia in other chronic diseases classified elsewhere; Unspecified kidney failure. Bed requested for Intensive Care Unit. Status is Inpatient Admission. Condition is Stable. Problem is an acute exacerbation. Symptoms are unchanged. cg 21:28 21:27 Hospitalization Ordered by Annmarie Carrasco MD for Inpatient Admission. Preliminary lp1 diagnosis is Diastolic (congestive) heart failure. Bed requested for [facility] ER HOLD. Status is Inpatient Admission. Condition is Fair. Problem is an acute exacerbation. Symptoms are unchanged. lp1
--- NOTE | 2019-10-11 18:05 | ER ---
Nurse's Notes [facility] Name: Christy Priest Age: 64 yrs Sex: Female : 1955 Arrival Date: 10/11/2019 Time: 16:04 Bed 19 Private MD: Diagnosis: Diastolic (congestive) heart failure Presentation: 10/10 16:00 Acuity: DENNY 2 sv 16:00 Chief complaint: EMS states: Pt started having increasing SOB and headache today. Pt sv was tested on 10/05/19 for COVID and is POSITIVE. Pt stated that she hasn't taken her fluid pill this morning because she was tired. Coronavirus screen: Surgical mask placed on patient. Patient moved to private room, placed in contact and droplet isolation with eye protection until further assessment. Patient reports a cough. Patient reports shortness of breath or difficulty breathing. Patient denies measured and/or subjective temperature greater than 100.4F prior to today's visit. Patient denies travel on a cruise ship or to a country the [facility] currently lists as an affected area. Patient denies contact with known and/or suspected case of COVID-19. Ebola Screen: No symptoms or risks identified at this time. 16:00 Method Of Arrival: EMS: [facility] sv 16:10 Initial Sepsis Screen: Does the patient meet any 2 criteria? No. Patient's initial sv sepsis screen is negative. Does the patient have a suspected source of infection? No. Patient's initial sepsis screen is negative. Risk Assessment: Do you want to hurt yourself or someone else? Patient reports no desire to harm self or others. Onset of symptoms was October 11, 2019. Triage Assessment: 16:00 General: Appears in no apparent distress. uncomfortable, well developed, Behavior is sv calm, cooperative, appropriate for age. Pain: Denies pain. Neuro: Level of Consciousness is awake, alert, obeys commands, Oriented to person, place, time, situation, Moves all extremities. Speech is normal. Cardiovascular: Edema is 4+ to left midcalf, left ankle, left foot, right midcalf, right ankle and right foot pitting to left midcalf, left ankle, left foot, right midcalf, right ankle and right foot. Respiratory: Reports shortness of breath at rest on exertion cough that is non-productive, persistent Airway is patent Respiratory effort is even, unlabored, Respiratory pattern is regular, symmetrical, Onset: The symptoms/episode began/occurred this morning, the patient has mild shortness of breath. GI: Abdomen is round. Derm: Skin is pink, warm \T\ dry. Derm: Decubitus located on left foot, there are 2 separate areas that are unstageable on the outer foot. is unstageable. is draining none noted. Musculoskeletal: Range of motion: intact in all extremities. Historical: - Allergies: 16:55 Augmentin; sv 16:55 basil; sv 16:55 Clindamycin; sv 16:55 HYDROCODONE; sv 16:55 Morphine; sv 16:55 Nitroglycerin; sv 16:55 Tramadol HCl; sv 16:55 Trazodone; sv 16:55 Vancomycin; sv 16:55 Vicodin; sv - Home Meds: 23:36 gabapentin Oral [Active]; Hydralazine Oral [Active]; insulin [Active]; Lasix Oral lp1 [Active]; Plavix Oral [Active]; - PMHx: 16:55 CHF; COPD; Diabetes - IDDM; ESRD; High Cholesterol; Hypertension; triple bypass; sv uterine cancer; - PSHx: 16:55 Cholecystectomy; Hysterectomy; leg surgery; BLE stents; left foot; sv - Immunization history:: Adult Immunizations up to date. - Social history:: Smoking status: . Screenin:10 Abuse screen: Denies threats or abuse. Denies injuries from another. Nutritional sv screening: No deficits noted. Tuberculosis screening: No symptoms or risk factors identified. Fall Risk None identified. Assessment: 17:34 Reassessment: Patient appears in no apparent distress at this time. No changes from sv previously documented assessment. Patient and/or family updated on plan of care and expected duration. Pain level reassessed. Patient is alert, oriented x 3, equal unlabored respirations, skin warm/dry/pink. 18:10 Reassessment: Patient appears in no apparent distress at this time. No changes from sv previously documented assessment. Patient and/or family updated on plan of care and expected duration. Pain level reassessed. Patient is alert, oriented x 3, equal unlabored respirations, skin warm/dry/pink. 19:15 Reassessment: Patient appears in no apparent distress at this time. Patient and/or jb4 family updated on plan of care and expected duration. Pain level reassessed. Patient is alert, oriented x 3, equal unlabored respirations, skin warm/dry/pink. PT admitted to ER hold. See [facility] for further documentation. 20:19 Reassessment: Spoke with Symone, patient's daughter who is POA; Patient aware of lp1 admission to hospital; Symone expressed concern to make sure wound care is continued while patient is admitted in hospital and possible retest for COVID. 10/11 19:30 Respiratory: Airway is patent Respiratory effort is even, unlabored, Respiratory wh pattern is regular, symmetrical, Breath sounds are diminished. 19:30 Cardiovascular: Rhythm is regular. Vital Signs: 10/10 16:10 BP 153 / 78; Pulse 71; Resp 20; Temp 97.5; Pulse Ox 96% on R/A; sv 17:00 BP 164 / 76; Pulse 73; Resp 14; Pulse Ox 100% on R/A; sv 18:00 BP 173 / 91; Pulse 76; Resp 13; Pulse Ox 100% on R/A; sv 18:45 BP 173 / 86; Pulse 73; Resp 15; Pulse Ox 100% on R/A; sv ED Course: 16:04 Patient arrived in ED. sv 16:05 Edith Alaniz RN is Primary Nurse. sv 16:07 Alessio Zarate PA is PHCP. cp 16:07 Alessio Parry MD is Attending Physician. cp 16:10 Arm band placed on. sv 16:10 Patient has correct armband on for positive identification. Placed in gown. Bed in low sv position. Call light in reach. Side rails up X2. musical instrument maker on. Pulse ox on. NIBP on. Door closed. Head of bed elevated. 16:25 First set of blood cultures drawn by me. sv 16:33 Second set of blood cultures drawn by me. Inserted saline lock: 20 gauge in right sv forearm, using aseptic technique. Blood collected. Flushed right forearm with 5 ml normal saline. 16:48 Triage completed. sv 16:48 X-ray(s) taken. sv 17:11 XRAY Chest (1 view) In Process Unspecified. EDMS 18:01 Nimesh Barreto DO is Hospitalizing Provider. cp 19:02 Primary Nurse role handed off by Edith Alaniz, GUILHERME sv 19:02 Report given to Carmelo VANEGAS. sv 21:16 Binh Bingham, RN is Primary Nurse. jb4 10/11 21:24 No provider procedures requiring assistance completed. IV discontinued, intact, wh bleeding controlled, No redness/swelling at site. 21:26 Nimesh Barreto DO is Hospitalizing Provider. lp1 21:26 Hospitalizing Provider role handed off by Nimesh Barreto DO lp1 21:26 Annmarie Carrasco MD is Hospitalizing Provider. lp1 Administered Medications: 10/10 17:34 Drug: Lasix 40 mg Route: IVP; Site: right forearm; sv 18:07 Follow up: Response: No adverse reaction sv Outcome: 18:04 Decision to Hospitalize by Provider. cp 10/11 21:24 Discharged to home via wheelchair, with family. Condition: stable Discharge instructions given to patient, family, Instructed on discharge instructions, follow up and referral plans. medication usage, POC Demonstrated understanding of instructions, follow-up care, medications, POC 21:27 Decision to Hospitalize by Provider. lp1 21:28 Patient left the ED. lp1 Signatures: Dispatcher [employer] EDMS Edith Alaniz RN RN Rayna Priest RN RN lp1 Alessio Zarate PA PA cp Binh Bingham, RN RN rui Nicholas Bowers Corrections: (The following items were deleted from the chart) 10/10 18:51 17:00 BP 164 / 76; Pulse 73bpm; Resp 14bpm; Pulse Ox 100%; sv sv 18:51 18:00 BP 173 / 91; Pulse 76bpm; Resp 13bpm; Pulse Ox 100%; sv sv 10/11 03:17 10/10 19:15 Reassessment: Patient appears in no apparent distress at this time. Patient jb4 and/or family updated on plan of care and expected duration. Pain level reassessed. Patient is alert, oriented x 3, equal unlabored respirations, skin warm/dry/pink. jb4
[2019-10-11] MEDS ORDERED: ACETAMINOPHEN 500 MG TAB PO PRN (19:11)
[2019-10-11] MEDS ORDERED: NA CHLORIDE 0.9% 1,000 ML IV SCH (20:00)
[2019-10-11] MEDS ORDERED: NA CHLORIDE 0.9% 1,000 ML ONE (21:55)
[2019-10-11] MEDS ORDERED: HYDROMORPHONE HCL 0.5 MG/0.5 ML INJ ONE (21:55)
[2019-10-11] MEDS: HYDROMORPHONE HCL 0.5 MG/0.5 ML INJ IV PRN (22:09)
[2019-10-11] MEDS: ONDANSETRON 4 MG/2 ML VIAL IV PRN (23:30)
[2019-10-11] MEDS ORDERED: ONDANSETRON 4 MG/2 ML VIAL ONE (23:39)
[2019-10-12] MEDS ORDERED: NA CHLORIDE 0.9% 100 ML IV ONE (03:47)
[2019-10-12 05:59] LABS: Absolute Lymphocytes (CBC) 1.8 K/uL (0.7-4.9); Basophils % 0.9 % (0-1.3); Hematocrit 25.5 % (36.0-45.0); Lymphocytes % 31.3 % (15.3-44.8); MPV 7.5 fL (7.6-11.3); RBC Red Blood Cell Count 2.89 M/uL (3.86-4.86)
[2019-10-12 06:13] LABS: ALT/SGPT 17 U/L (12-78); AST/SGOT 27 U/L (15-37); Albumin 2.5 g/dL (3.4-5.0); Alkaline Phosphatase 140 U/L (45-117); BUN Blood Urea Nitrogen 35 mg/dL (7-18); Bicarbonate 27 mmol/L (21-32); Bilirubin Total 0.6 mg/dL (0.2-1.0); Glucose Level 99 mg/dL (74-106); NT PRO-BNP 31710 pg/mL (<125); Phosphorus 2.7 mg/dL (2.5-4.9); Potassium 4.8 mmol/L (3.5-5.1); Protein, Total 6.4 g/dL (6.4-8.2); Sodium Level 143 mmol/L (136-145)
[2019-10-12 06:17] LABS: C-Reactive Protein < 2.90 mg/L (<3.00)
[2019-10-12] MEDS ORDERED: FUROSEMIDE 20 MG/ 2ML VIAL ONE (06:52)
[2019-10-12] MEDS ORDERED: ENOXAPARIN 40 MG/0.4 ML SQ ONE (08:39)
[2019-10-12] MEDS ORDERED: ENOXAPARIN 40 MG/0.4 ML SQ SCH (09:00)
[2019-10-12] MEDS: AMPICILLIN/SULBACT 3 GM in NA CHLORIDE 0.9% 100 ML IVPB SCH ×3 (09:00→18:00)
[2019-10-12] MEDS ORDERED: HYDROMORPHONE HCL 0.5 MG/0.5 ML INJ ONE (09:32)
[2019-10-12] MEDS ORDERED: ONDANSETRON 4 MG/2 ML VIAL ONE ×2 (09:32→15:34)
[2019-10-12] MEDS: ONDANSETRON 4 MG/2 ML VIAL IV PRN (09:40)
[2019-10-12] MEDS: HYDROMORPHONE HCL 0.5 MG/0.5 ML INJ IV PRN (09:40)
[2019-10-12] MEDS ORDERED: NA CHLORIDE 0.9% 250 ML ONE (12:05)
--- NOTE | 2019-10-12 12:19 | P.HP ---
Certification for Inpatient Patient admitted to: Inpatient With expected LOS: >2 Midnights Patient will require the following post-hospital care: None Practitioner: I am a practitioner with admitting privileges, knowledge of patient current condition, hospital course, and medical plan of care. Services: Services provided to patient in accordance with Admission requirements found in Title 42 Section 412.3 of the Code of Federal Regulations Patient History Date of Service: 10/11/19 Reason for admission: ANEMIA; RENAL INSUFFICIENCY; DYSPNEA. History of Present Illness: Patient is a 64-year-old female came to the hospital with shortness of breath. Patient was at wound healing last week and was diagnose with COVID-19. Patient went home and she noticed she was having some difficulty breathing. She was worried she may have pneumonia so she came into the ER for further evaluation. In the ER she was found to be severely anemic. She was admitted to the hospital for blood transfusion. Allergies morphine Allergy (Severe, Verified 07/07/19 00:33) Anaphylaxis vancomycin Allergy (Intermediate, Verified 06/18/19 03:59) Nausea/Vomiting basil Allergy (Verified 06/18/19 03:59) Nausea/Vomiting tramadol Allergy (Verified 07/07/19 04:12) Nausea/Vomiting trazodone Allergy (Verified 06/18/19 03:59) Nausea/Vomiting nitroglycerin Adverse Reaction (Mild, Verified 06/18/19 04:00) Nausea/Vomiting Home Medications: Aspirin 81 mg PO DAILY #90 tab.chew 06/18/19 Atorvastatin Calcium [Lipitor] 40 mg PO DAILY #30 tablet 06/18/19 Carvedilol [Coreg] 12.5 mg PO BID #60 tablet 06/18/19 Clopidogrel Bisulfate [Plavix*] 75 mg PO DAILY #60 tablet 06/18/19 Insulin Detemir [Levemir Flextouch] 10 units SQ DAILY #1 insuln.pen 06/18/19 Fluticasone [Flovent Hfa 110*] 2 puff IH DAILY 07/07/19 Sertraline [Zoloft*] 25 mg PO DAILY 07/07/19 Buproprion S.r. [Wellbutrin Sr*] 1 tab PO BID 09/28/19 Furosemide 2 tab PO BID 09/28/19 Codeine/APAP [Tylenol W/Codeine #3 tab] 1 tab PO Q6HP PRN #30 tab 10/12/19 Collagenase [Santyl Ointment*] 15 gm TP DAILY 10/12/19 Isosorbide Mononitrate [Isosorbide Mononitrate ER] 30 mg PO DAILY 10/12/19 Levofloxacin [Levaquin] 250 mg PO DAILY 10/12/19 Levofloxacin [Levaquin] 500 mg PO 1700 10/12/19 Linezolid [Zyvox] 600 mg PO Q12H #14 tablet 10/12/19 - Past Medical/Surgical History Has patient received pneumonia vaccine in the past: Yes Diabetic: Yes -: COPD -: Hypertension -: CAD, CABG x4 vessels (August 2017) -: Diabetes mellitus type 2, insulin-dependent -: Chronic diastolic CHF -: Uterine cancer status post hysterectomy -: Chronic renal disease, stage IV -: 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 Her son lives with her. She has 3 children. - Family History Brother Medical History: Heart disease, Hypertension, Diabetes Notes: Father Medical History: Heart disease, Cancer Notes: - Prostate surgery - Hemorrhage Mother Medical History: GI disease Notes: Sister Medical History: Heart disease Notes: - Respiratory failure - Social History Smoking Status: Former smoker Alcohol use: No CD- Drugs: No Caffeine use: Yes Place of Residence: Home Review of Systems 10-point ROS is otherwise unremarkable Physical Examination - Vital Signs Temperature: 97.8 F Blood Pressure: 167/87 Pulse: 68 Respirations: 16 Pulse Ox (%): 100 - Physical Exam General: Alert, In no apparent distress, Oriented x3 HEENT: Atraumatic, PERRLA, Mucous membr. moist/pink, EOMI, Sclerae nonicteric Neck: Supple, 2+ carotid pulse no bruit, No LAD, Without JVD or thyroid abnorm ality Respiratory: Clear to auscultation bilaterally, Normal air movement Cardiovascular: Regular rate/rhythm, Normal S1 S2 Gastrointestinal: Normal bowel sounds, Soft and benign, Non-distended, No tenderness Musculoskeletal: No clubbing, No swelling, No tenderness Integumentary: No rashes Neurological: Normal gait, Normal speech, Normal strength at 5/5 x4 extr, Normal tone, Sensation intact, Cranial nerves 3-12 intact, Normal affect Lymphatics: No axilla or inguinal lymphadenopathy - Studies Laboratory Data (last 24 hrs) 10/11/19 16:33: PT 15.0 H, INR 1.28 10/11/19 16:33: WBC 6.1, Hgb 7.1 L*, Hct 23.2 L, Plt Count 173 10/11/19 16:33: Sodium 142, Potassium 4.6, BUN 33 H, Creatinine 2.03 H, Glucose 110 H, Magnesium 2.1, Total Bilirubin 0.6, AST 39 H, ALT 20, Alkaline Phosphatase 147 H Assessment & Plan - Problems (Diagnosis) (1) Anemia Status: Acute (2) Dyspnea Status: Acute (3) Lower extremity edema Status: Acute (4) COPD (chronic obstructive pulmonary disease) Onset Date: 02/04/17 Status: Chronic Qualifiers: COPD type: chronic bronchitis Chronic bronchitis type: mucopurulent Qualified Code(s): J41.1 - Mucopurulent chronic bronchitis (5) Diabetes mellitus Onset Date: 10/03/17 Status: Chronic Qualifiers: Diabetes mellitus type: type 2 Diabetes mellitus mcc insulin use: with long term care administrator use Diabetes mellitus complication status: with other specified complication Qualified Code(s): E11.69 - Type 2 diabetes mellitus with other specified complication; Z79.4 - exterminator termite (current) use of insulin (6) History of - depression Status: Chronic (7) History of - hypertension Status: Chronic (8) History of coronary artery bypass graft Status: Chronic (9) History of femoropopliteal bypass Status: Chronic (10) Hyperlipidemia Onset Date: 10/03/17 Status: Chronic Qualifiers: Hyperlipidemia type: mixed hyperlipidemia Qualified Code(s): E78.2 - Mixed hyperlipidemia (11) Hypertension Status: Chronic Qualifiers: Hypertension type: essential hypertension Qualified Code(s): I10 - Essential (primary) hypertension (12) Renal insufficiency Onset Date: 04/28/15 Status: Chronic (13) Tobacco abuse Onset Date: 02/04/17 Status: Chronic - Plan Plan: 1. Continue with gentle IV hydration and PPI 2. Continue with IV antibiotics 3. Continue with pain control 4. NPO 5. GI consultation 6. Transfuse 2 units of packed red blood cells 7. GI and DVT prophylaxis Discharge Plan: Home Plan to discharge in: 24 Hours - Advance Directives Does patient have a Living Will: Yes Does patient have a Durable POA for Healthcare: Yes - Code Status/Comfort Care Code Status Assessed: Yes Code Status: Full Code Critical Care: No
[2019-10-12] MEDS ORDERED: FUROSEMIDE 20 MG/ 2ML VIAL IV ONE (13:58)
[2019-10-12 16:38] VITALS: O2SAT 97
[2019-10-12 16:53] LABS: Absolute Lymphocytes (CBC) 1.4 K/uL (0.7-4.9); Hematocrit 33.1 % (36.0-45.0); Lymphocytes % 24.7 % (15.3-44.8); MPV 7.9 fL (7.6-11.3); RBC Red Blood Cell Count 3.75 M/uL (3.86-4.86)
[2019-10-12] MEDS ORDERED: FUROSEMIDE 40 MG TABLET PO SCH (17:00)
[2019-10-12] MEDS ORDERED: JUVEN PACKET PO SCH (18:00)
[2019-10-12] MEDS ORDERED: carvediloL 12.5 MG TAB PO SCH (21:00)
[2019-10-12] MEDS ORDERED: BUPROPRION HCL S.R. 150MG TAB PO SCH (21:00)
--- NOTE | 2019-10-13 07:49 | EKG ---
Test Date: 2019-10-11 Test Time: 17:28:32 [employer] Molder: CHANDAN MEASUREMENT RESULTS: Intervals: Rate: 75 IA: 198 QRSD: 106 QT: 436 QTc: 486 [place]: P: 63 IA: 198 QRS: 64 T: 121 INTERPRETIVE STATEMENTS: Normal sinus rhythm Low voltage QRS Incomplete right bundle branch block Cannot rule out Anterior infarct, age undetermined T wave abnormality, consider lateral ischemia Abnormal ECG Compared to ECG 09/27/2019 15:19:59 Low QRS voltage now present Incomplete right bundle-branch block now present T-wave abnormality now present Possible ischemia now present Right bundle-branch block no longer present Myocardial infarct finding still present Electronically Signed On 10-13-19 07:45:04 CDT by Taj Raymond
[2019-10-13] MEDS ORDERED: ASPIRIN 81 MG CHEWABLE TABLET PO SCH (09:00)
[2019-10-13] MEDS ORDERED: ISOSORBIDE MONO SR 30 MG TAB PO SCH (09:00)
[2019-10-13] MEDS ORDERED: INSULIN GLARGINE 100 UNITS/ML SQ SCH (09:00)
[2019-10-13] MEDS ORDERED: FLUTICASONE IH SCH (09:00)
[2019-10-13] MEDS ORDERED: HOME MED 1 EA UNK (Insulin Detemir [Levemir Flextouch] 10 UNITS) SQ SCH (09:00)
[2019-10-13] MEDS ORDERED: ATORVASTATIN 40 MG TAB PO SCH (09:00)
[2019-10-13] MEDS ORDERED: COLLAGENASE 30 GM OINTMENT TOP SCH (09:00)
[2019-10-13] MEDS ORDERED: SERTRALINE HCL 50 MG TAB PO SCH (09:00)
[2019-10-13] MEDS ORDERED: CLOPIDOGREL 75 MG TABLET PO SCH (09:00)
[2019-10-14 13:10] VITALS: BP 167/87; TEMP 97.8
--- NOTE | 2019-10-14 13:15 | P.DS ---
Discharge Date: 10/12/19 Disposition: DC HOME/HOME HEALTH CARE Discharge Condition: GOOD Reason for Admission: ANEMIA; RENAL INSUFFICIENCY; DYSPNEA. Brief History of Present Illness: Patient is a 64-year-old female who came in with shortness of breath. She was diagnose with COVID-19. This happened a week ago at wound healing Center. She also was anemic and her anemia has worsened. Her hemoglobin is 6. Should get transfuse 2 units of packed red blood cells. Her lungs are hemoglobin is stable we should be able to discharge her home after the transfusion. Hospital Course: Patient was given 2 units packed red blood cells. Her hemoglobin improved. Repeat hemoglobin is remaining elevated. At this time, patient is stable for discharge home with oupt follow-up with GI, wound healing Center, and PCP. Return to the ER if her respiratory status worsens or she has any active bleeding. Vital Signs/Physical Exam: Temp Pulse Resp BP Pulse Ox 97.8 F 68 16 167/87 H 100 10/14/19 13:09 10/14/19 13:09 10/14/19 13:09 10/14/19 13:09 10/14/19 13:09 General: Alert, In no apparent distress, Oriented x3 Laboratory Data at Discharge: WBC 5.5 K/uL (4.3-10.9) 10/12/19 16:27 Hgb 10.3 g/dL (12.0-15.0) L 10/12/19 16:27 Hct 33.1 % (36.0-45.0) L D 10/12/19 16:27 Plt Count 172 K/uL (152-406) 10/12/19 16:27 PT 15.0 SECONDS (9.5-12.5) H 10/11/19 16:33 INR 1.28 10/11/19 16:33 Sodium 142 mmol/L (136-145) 10/12/19 16:27 Potassium 5.0 mmol/L (3.5-5.1) 10/12/19 16:27 BUN 34 mg/dL (7-18) H 10/12/19 16:27 Creatinine 2.10 mg/dL (0.55-1.3) H 10/12/19 16:27 Glucose 88 mg/dL (74-106) 10/12/19 16:27 Phosphorus 2.7 mg/dL (2.5-4.9) 10/12/19 05:30 Magnesium 2.0 mg/dL (1.8-2.4) 10/12/19 05:30 Total Bilirubin 0.6 mg/dL (0.2-1.0) 10/12/19 05:30 AST 27 U/L (15-37) 10/12/19 05:30 ALT 17 U/L (12-78) 10/12/19 05:30 Alkaline Phosphatase 140 U/L (45-117) H 10/12/19 05:30 Home Medications: Aspirin 81 mg PO DAILY #90 tab.chew 06/18/19 Atorvastatin Calcium [Lipitor] 40 mg PO DAILY #30 tablet 06/18/19 Carvedilol [Coreg] 12.5 mg PO BID #60 tablet 06/18/19 Clopidogrel Bisulfate [Plavix*] 75 mg PO DAILY #60 tablet 06/18/19 Insulin Detemir [Levemir Flextouch] 10 units SQ DAILY #1 insuln.pen 06/18/19 Fluticasone [Flovent Hfa 110*] 2 puff IH DAILY 07/07/19 Sertraline [Zoloft*] 25 mg PO DAILY 07/07/19 Buproprion S.r. [Wellbutrin Sr*] 1 tab PO BID 09/28/19 Furosemide 2 tab PO BID 09/28/19 Codeine/APAP [Tylenol W/Codeine #3 tab] 1 tab PO Q6HP PRN #30 tab 10/12/19 Collagenase [Santyl Ointment*] 15 gm TP DAILY 10/12/19 Isosorbide Mononitrate [Isosorbide Mononitrate ER] 30 mg PO DAILY 10/12/19 Levofloxacin [Levaquin] 250 mg PO DAILY 10/12/19 Levofloxacin [Levaquin] 500 mg PO 1700 10/12/19 Linezolid [Zyvox] 600 mg PO Q12H #14 tablet 10/12/19 New Medications: Codeine/APAP [Tylenol W/Codeine #3 tab] 1 tab PO Q6HP PRN #30 tab PRN Reason: Pain Linezolid [Zyvox] 600 mg PO Q12H #14 tablet Patient Discharge Instructions: OK TO DC IV AND DC HOME. FOLLOW-UP WITH PRIMARY CARE PROVIDER IN 1-2 WEEKS. FOLLOW-UP WITH WOUND CARE AND GI IN 1-2 WEEKS. RETURN TO THE ER IF SYMPTOMS WORSEN. CALL DR. COOPER AT [phone] IF ANY QUESTIONS REGARDING HOSPITAL STAY. PLEASE CALL THE FLOOR AT [phone] IF ANY MEDICATION OR NURSING QUESTIONS. -OKAY TO DC HOME TO FOLLOW UP WITH WOUND CARE CENTER AND GASTROENTEROLOGY IF TOLERATES SUPPER AND HEMOGLOBIN REMAINS GREATER THAN 8.0. -PLEASE MAKE SURE HER HEMOGLOBIN REMAINS ABOVE 8.0 PRIOR TO DISCHARGE. -PATIENT ALSO NEEDS TO FOLLOW UP WITH PRIMARY CARE PROVIDER. - PATIENT NEEDS TO INCREASE PROTEIN IN DIET TO HELP WITH LOWER EXTREMITY EDEMA SHE APPEARS TO BE THIRD-SPACING A LOT OF HER FLUID. - PLEASE ADVISE PATIENT TO STOP BACTRIM USE AT THIS TIME. - CONTINUE WITH ZYVOX FOR 1 WEEK FOR TREATMENT OF HER LOWER EXTREMITY WOUND. - QUARANTINED FOR AT LEAST 14 DAYS AND IF SYMPTOMS WORSEN INCLUDING WORSENING FEVER AND WORSENING SHORTNESS OF BREATH THEN RETURN TO THE EMERGENCY ROOM FOR FURTHER EVALUATION. - PLEASE MAKE SURE PATIENT HAS HOME HEALTH ARRANGED PRIOR TO DISCHARGE; NURSING FOR WOUND CARE AND PHYSICAL THERAPY EVALUATION. PT IS COVID POSITIVE Diet: AHA (LOW SALT; INCREASED PROTEIN INTAKE) Activity: Fall precautions Time spent managing pt's care (in minutes): 25
== END 2019-10-12 21:28 | disposition home health service (06) ==
LOC: ER 16:03 → ERHOLD 19:25 → INTOOBSV 19:25 → ERHOLD 10-12 18:11
PROVIDERS: ADMIT Hospitalist; ATTEND Hospitalist
DX: U07.1 COVID-19 (principal); R06.00 Dyspnea, unspecified; R60.0 Localized edema; D63.1 Anemia in chronic kidney disease; E11.22 Type 2 diabetes mellitus with diabetic chronic kidney disease; I13.2 Hypertensive heart and chronic kidney disease with heart failure and with stage 5 chronic kidney disease, or end stage renal disease; N18.6 End stage renal disease; I50.30 Unspecified diastolic (congestive) heart failure; J44.9 Chronic obstructive pulmonary disease, unspecified; I45.10 Unspecified right bundle-branch block; E78.2 Mixed hyperlipidemia; F32.9 Major depressive disorder, single episode, unspecified; I25.10 Atherosclerotic heart disease of native coronary artery without angina pectoris; F17.200 Nicotine dependence, unspecified, uncomplicated; Z79.82 Long term (current) use of aspirin; Z79.02 Long term (current) use of antithrombotics/antiplatelets; Z79.4 Long term (current) use of insulin; Z79.899 Other long term (current) drug therapy; Z95.1 Presence of aortocoronary bypass graft; Z85.42 Personal history of malignant neoplasm of other parts of uterus
CPT/HCPCS: 93005; 87040 ×2; 85025 ×3; 80048 ×2; 36415; 86900; 83735 ×2; 86850; 83615; 84100; 85610; 85044; 86902; 86870; 86901; 85379; 80076; 83605 ×3; 85018; 85014; 84484; 82728 ×2; 83540; 80053; 84145; 86922 ×2; 83880 ×3; 86140; 71045; 96374; 99285; J1940 ×2; J1650; J1170 ×2; G0378 ×2; P9016 ×2; J7050; J7030; J0295; J2405 ×3

== ENCOUNTER 2019-10-15 23:23 | Observation (INO) | payer MEDICAID ==
--- OUTSIDE RECORDS SUMMARY | 2019-10-15 23:26 | XMS REPORT | Clinical Summary ---
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 05/19/2017 [...] VACCINE (#1) 2019 Implants Implanted Type Area Mannequin Wig Maker Device Shelf Model / Identifier Expiration Serial / Date Lot Device Clsr Angio-Seal Vip 8fr [id number] - [id number] Cardiovascular N/A: [employer] EV[employer] 01/28/2018 [id number] / Implanted: Qty: 1 on 05/12/2017 by Sandra Gaytan MD Groin MED:CARDIAC / SURG [id number] Grft Eptfe-Heparin Rng [id number] - [id number] Graft/P atch Right: SUHAS MATHEW & 04/09/2021 [id number] / Implanted: Qty: 1 on 08/05/2017 by Mariela Ramirez MD Leg ASSC:MED PRDT [id number] / N/A Results Not on fileafter 10/14/2018 Insurance Payer Benefit Plan / Group Subscriber ID Type Phone A ddress [place]ID [place] xxxxxxxxx Advance Directives For more information, please contact:[place] [address] [place], [place] [phone] Code Status Date Activated Date Inactivated Comments [...]
--- OUTSIDE RECORDS SUMMARY | 2019-10-15 23:39 | XMS REPORT | Continuity of Care Document ---
:1955 Author Organization [facility] t Address 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 disorder, disorder, with with long-term long-term current current use of use of insulin insulin Smoker Smoker Disease Active [facility]14 [facility] - 00:[facility]: Medical 00 [place] Frequent Frequent Disease Active [facility] PVCs PVCs 2-12 [facility] - 00:[facility]: Medical 00 [place] Essential Essential Problem Active [facility] (primary) (primary) Luke s - hypertensi hypertensi Me moria on on l [facility] ent Clinics Depression Depression Problem Active [facility] , , [facility] - unspecifie unspecifie Me moria d d l depression depression Ou tpati type type ent Clinics History of History of Problem Active [facility] cancer cancer [facility] Primary Primary Problem Active [facility] insomnia insomnia [facility] Chronic Chronic Problem Active [facility] acquired acquired [facility] - lymphedema lymphedema Me moria [facility] ent Clinics Chronic Chronic Diagnosis Active CHI [...] diastolic Luke s - congestive congestive Me 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 [facility] current current [facility] - use of use of Memoria insulin insulin l [facility] ent Clinics History of History of Problem Active [facility] stroke stroke [facility] Clinics 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[address] diabetes diabetes [facility] - mellitus mellitus Memori a with with l hyperglyce hyperglyce [facility] Clinics 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[address] diabetes diabetes [facility] - mellitus mellitus Memori a with with l diabetic diabetic Outpat i chronic chronic ent kidney kidney Clinics disease disease Kidney Kidney Problem Active [facility] disease disease [facility] Clinics Allergies, Adverse Reactions, [...] Analogue adverse 00:00: Medical s reaction 00 [place] Vancomyc Adverse Active vomiting [facility] t in HCl Reaction [facility] Clinics Nitrogly Adverse Active vomiting [facility] t cerin Reaction [facility] ent [facility] Morphine Adverse Active headache, [facility] Sulfate Reaction breathing Luke s - Memoria l [facility] Clindamy Adverse Active vomiting [facility] t riley HCl Reaction [facility] Family History Family Member Diagnosis Comments Start Date Stop Date Source Natural father COPD [facility] Natural father Cancer [facility] Natural father Hypertension [facility] Natural mother No Known Problem [facility] Natural sister Asthma [facility] Natural sister COPD [facility] Social History Social Habit Start Date Stop Date Quantity Comments Source Sex Assigned At [facility] Cigarettes smoked 2017-09-02 2017-09-02 [facility] - current (pack per 00:00:00 00:00:00 Medical Center day) - Reported Cigarette 2017-09-02 2017-09-02 [facility] - pack-years 00:00:00 00:00:00 [facility] History of tobacco 2017-05-12 Current smoker [facility] - use 00:00:00 [facility] Smoking Status Start Date Stop Date Source Former smoker 2017-09-02 00:00:00 2017-09-02 00:00:[address] [address] [facility] Medications Ordered Filled [...] St detemir 3-04 0.05 [address] [facility] (LEVEMIR 00:00: (5 Units Medic al FLEXPEN) 00 total) [place] 100 unit/mL subcutaneo (3 mL) InPn usly every injection morning. pen needle, Yes Use as [facility] diabetic 29 3-04 directed Luke s - gauge Ndle 00:00: to inject Me dical 00 long and Center short acting insulin.. aspirin 81 Yes 81mg QD Take [address] MG EC 1-22 by mouth [facility] - tablet 20:09: daily. [facility] 35 [place] Trazodone Trazodone Yes Franki TAKE [address] HCl HCl Jas TABLET BY [facility] - MOUTH Memoria EVERYDAY l AT BEDTIME [facility] Clinics Isosorbide Isosorbide Yes Franki TAKE [address] [facility] Mononitrate Mononitrate Jas TABLET BY [facility] - ER ER MOUTH Memoria EVERY DAY l [facility] Clinics NIFEdipine NIFEdipine Yes Franki TAKE [address] [facility] ER ER Jas TABLET BY [facility] - MOUTH Memoria EVERY DAY l [facility] Clinics BuPROPion BuPROPion Yes Franki TAKE [address] HCl HCl Jas TABLET BY [facility] - MOUTH Memoria EVERY DAY l [facility] Acetaminoph Acetaminoph Yes Franki [...] 00:00:00 measurement Medical Center (procedure) [code = 42335220] Future Scheduled [address] [facility] - Test 00:00:00 [facility] cervix (procedure) [code = 143332150] Future Scheduled [address] DIAB[address]IC EYE EXAM [facility] - Test 00:00:00 [code = DIABETIC EYE Medical Center EXAM] Future Scheduled [address] [facility] - Test 00:00:00 examination Medical Center (regime/therapy) [code = 941649750] Future Scheduled 1965 Urine screening for [facility] - Test 00:00:00 protein (procedure) Medical Center [code = 177447611] Future Scheduled [address] [facility] - Test 00:00:00 2-64 YEARS AT RISK (1 Medica l Center of 1 - PPSV23) [code = PNEUMOCOCCAL VACCINE 2-64 YEARS AT RISK (1 of 1 - PPSV23)] Future Scheduled [address] [facility] - Test 00:00:00 [facility] breast (procedure) [code = 013423718] Future Scheduled [address] [facility] - Test 00:00:00 [facility] colon (procedure) [code = 114479444] Encounters Start End Encounter Admission Attending Care Care Encounter Source Date/Time Date/Time Type Type Clinicians Facility Department ID 2018-11-17 2018-11-17 Outpatient Alison Wilson [id number] 11:30:00 11:30:00 [facility] Family Medicine Medicine [facility] 2018-10-06 2018-10-06 Outpatient Alison Wilson [id number] 16:14:00 16:14:00 [facility] Medicine Medicine Outpati ent Clinics 2018-09-28 2018-09-28 Outpatient Alison Wilson [id number] 10:30:00 10:30:00 [facility] Medicine Outpati ent Clinics Results Test Description Test Time Test Comments Results Result Comments Source POCT-GLUCOSE METER 2017-09-05 17:13:00 Test Item Value Reference Range Interpretation Comme nts POC-GLUCOSE METER (BEAKER) (test 220 mg/dL 70-110 H [facility] [facility] 7[address] 0 BASIC METABOLIC [id number] 15:47:00 Test Item Value Reference Range Interpretation [...] NOT APPLICABLE FOR DIALYSIS PATIEN TS. POCT-GLUCOSE [id number] 11:30:00 Test Item Value Reference Range Interpretation Comments POC-GLUCOSE METER 268 mg/dL 70-110 H TESTED AT [facility] 6720 (BEAKER) (test code = MATTHIASOH Dylon [facility] 1538) [address] POCT-GLUCOSE [id number] 07:08:00 Test Item Value Reference Range Interpretation Comments POC-GLUCOSE METER 208 mg/dL 70-110 [facility] ([facility]ER[facility] (test code = MATTHIASOH Dylon [facility] 1538) [address] CALCIUM, [id number] 06:47:00 Test Item Value Reference Range Interpretation Comments CALCIUM IONIZED (BEAKER) (test 1.11 mmol/L 1.12-1.27 L code = 698) PH, BLOOD (BEAKER) (test code = 7.40 1810) BASIC METABOLIC [id number] 06:40:00 Test Item Value Reference Range Interpretation [...] S NOT APPLICABLE FOR DIALYSIS PATIEN TS. [id number] 06:33:00 Test Item Value Reference Range Interpretation Comments PHOSPHORUS (BEAKER) (test code = 5.1 mg/dL 2.3-4.7 H 604) [id number] 06:33:00 Test Item Value Reference Range Interpretation Comments MAGNESIUM (BEAKER) (test code = 2.0 mg/dL 1.6-2.6 627) LACTIC ACID, VENOUS, WHOLE [id number] 06:02:00 Test Item Value Reference Range Interpretation Comments LACTATE BLOOD VENOUS (2) (BEAKER) 0.8 mmol/L 0.5-2.2 (test code = 2872) Effective 08/02/2015: Units/Reference Range ChangeNew: 0.5-2.2 mmol/L Previous: 5-20 mg/dLCBC W/PLT COUNT & AUTO [id number] 05:54:00 Test Item Value Reference Range Interpretation [...] PERCENT (BEAKER) (test code = 2801) POCT-GLUCOSE [id number] 21:30:00 Test Item Value Reference Range Interpretation Comments POC-GLUCOSE METER 248 mg/dL 70-110 H TESTED AT [place] [address] ([facility]) (test code = JULIANO Osborne [facility] 1538) [address] RAD, [id number] 21:22:00Reason for exam:->fall, tailbone painFINAL REPORT RAD, [...] MDReport Verified Date/Time: 09/04/2017 21:22:03 Reading Location: [address] Reading Room POCT-GLUCOSE [id number] 17:37:00 Test Item Value Reference Range Interpretation Comments POC-GLUCOSE METER 222 mg/dL 70-110 H TESTED AT [place] [address] ([facility]) (test code = JULIANO Osborne [place] 1538) [address] POCT-GLUCOSE [id number] 13:55:00 Test Item Value Reference Range Interpretation Comments POC-GLUCOSE METER 194 mg/dL 70-110 H TESTED AT [place] [address] ([facility]) (test code = JULIANO Osborne [facility] 1538) [address] POCT-GLUCOSE [id number] 12:34:00 Test Item Value Reference Range Interpretation Comments POC-GLUCOSE METER 229 mg/dL 70-110 H TESTED AT [place] [address] ([facility]) (test code = JULIANO Osborne [place] 1538) [address] POCT-GLUCOSE [id number] 08:00:00 Test Item Value Reference Range Interpretation Comments POC-GLUCOSE METER 159 mg/dL 70-110 H TESTED AT [facility] 6720 (BEAKER) (test code = JULIANO [place] 1538) [address] CALCIUM, [id number] 06:00:00 Test Item Value Reference Range Interpretation Comments CALCIUM IONIZED (BEAKER) (test 1.05 mmol/L 1.12-1.27 L code = 698) PH, BLOOD (BEAKER) (test code = 7.45 1810) [id number] 05:59:00 Test Item Value Reference Range Interpretation Comments PHOSPHORUS (BEAKER) (test code = 4.8 mg/dL 2.3-4.7 H 604) [id number] 05:59:00 Test Item Value Reference Range Interpretation Comments MAGNESIUM (BEAKER) (test code = 2.0 mg/dL 1.6-2.6 627) BASIC METABOLIC [id number] 05:59:00 Test Item Value Reference Range Interpretation [...] = 380) CBC W/PLT COUNT & AUTO [id number] 05:32:00 Test Item Value Reference Range Interpretation [...] 417) IMMATURE GRANULOCYTES-RELATIVE 0 % 0-1 [facility] (test code = 2801) POCT-GLUCOSE [id number] 20:36:00 Test Item Value Reference Range Interpretation Comments POC-GLUCOSE METER 211 mg/dL 70-110 H TESTED AT [place] [address] [facility] (test code = JULIANO Osborne [facility] 1538) [address] CREATININE, RANDOM [id number] 19:55:00 Test Item Value Reference Range Interpretation Comments CREATININE URINE (BEAKER) (test 16.1 mg/dL code = 375) Reference Range: No NormalsPROTEIN, RANDOM [id number] 19:55:00 Test Item Value Reference Range Interpretation Comments PROTEIN, URINE (BEAKER) (test code 102 mg/dL 0-14 H = 1569) POCT-GLUCOSE [id number] 18:04:00 Test Item Value Reference Range Interpretation Comments POC-GLUCOSE METER 177 mg/dL 70-110 H TESTED AT [place] [address] ([facility]) (test code = JULIANO Osborne [facility] 1538) [address] POCT-GLUCOSE [id number] 11:59:00 Test Item Value Reference Range Interpretation Comments POC-GLUCOSE METER 244 mg/dL 70-110 H TESTED AT [place] [address] ([facility]) (test code = JULIANO Osborne [facility] 1538) [address] POCT-GLUCOSE [id number] 07:53:00 Test Item Value Reference Range Interpretation Comments POC-GLUCOSE METER 160 mg/dL 70-110 H TESTED AT [place] [address] ([facility]) (test code = JULIANO Osborne [facility] 1538) [address] BASIC METABOLIC [id number] 05:29:00 Test Item Value Reference Range Interpretation [...] S NOT APPLICABLE FOR DIALYSIS PATIEN TS. [id number] 05:21:00 Test Item Value Reference Range Interpretation Comments MAGNESIUM (BEAKER) (test code = 2.1 mg/dL 1.6-2.6 627) HEPATIC FUNCTION [id number] 05:21:00 Test Item Value Reference Range Interpretation [...] code = 23 U/L 6-55 347) TROPONIN [id number] 05:18:00 Test Item Value Reference Range Interpretation [...] PERCENT (BEAKER) (test code = 2801) TROPONIN [id number] 23:40:00 Test Item Value Reference Range Interpretation [...] acidosis, acute neurological disease, and persistent tachyarrhythmia.POCT-GLUCOSE [id number] 22:51:00 Test Item Value Reference Range Interpretation Comments POC-GLUCOSE METER 214 mg/dL 70-110 H TESTED AT [facility] 6720 [facility] (test code = JULIANO [place] 1538) [address] RAD, CHEST, 1 VIEW, NON [id number] 21:42:00Reason for exam:->CHEST PAINShould this be performed at the bedside?->YesFINAL REPORT RAD, CHEST, 1 VIEW, NON DEPT INDICATION: CHEST PAIN COMPARISON: Chest x-ray 4 weeks ago TECHNIQUE: Single frontal view of the chest. IMPRESSION:Cardiomegaly.Mild pulmonary interstitial edema with a small right- sided effusion.No acute osseous abnormality. Signed: Kristin Abraham MDReport Verified Date/Time: 09/02/2017 21:42:11 Reading Location: [address] Reading Room CREATININE, RANDOM [id number] 21:10:00 Test Item Value Reference Range Interpretation Comments CREATININE URINE (BEAKER) (test 35.5 mg/dL code = 375) Reference Range: No NormalsSODIUM, RANDOM [id number] 21:10:00 Test Item Value Reference Range Interpretation Comments SODIUM URINE (BEAKER) (test code = 80 meq/L 243) Reference Range: No NormalsURINALYSIS W/ [id number] 20:59:00 Test Item Value Reference Range Interpretation [...] code = 514) SOURCE(BEAKER) (test code = 9091) BASIC METABOLIC [id number] 16:49:00 Test Item Value Reference Range Interpretation [...] S NOT APPLICABLE FOR DIALYSIS PATIEN TS. [id number] 16:38:00 Test Item Value Reference Range Interpretation [...] (BEAKER) (test code = 700) BASIC METABOLIC [id number] 13:43:00 Test Item Value Reference Range Interpretation [...] NOT APPLICABLE FOR DIALYSIS PATIEN TS. POCT-GLUCOSE [id number] 12:44:00 Test Item Value Reference Range Interpretation Comments POC-GLUCOSE METER 283 mg/dL 70-110 H TESTED AT [facility] 6720 (BEAKER) (test code = JULIANO [place] 1538) [address] CALCIUM, [id number] 07:03:00 Test Item Value Reference Range Interpretation Comments CALCIUM IONIZED (BEAKER) (test 1.02 mmol/L 1.12-1.27 L code = 698) PH, BLOOD (BEAKER) (test code = 7.43 1810) [id number] 05:28:00 Test Item Value Reference Range Interpretation Comments PHOSPHORUS (BEAKER) (test code = 3.3 mg/dL 2.3-4.7 604) [id number] 05:28:00 Test Item Value Reference Range Interpretation Comments MAGNESIUM (BEAKER) (test code = 1.5 mg/dL 1.6-2.6 L 627) BASIC METABOLIC [id number] 05:28:00 Test Item Value Reference Range Interpretation [...] PATIEN TS. CBC W/PLT COUNT & AUTO [id number] 05:06:00 Test Item Value Reference Range Interpretation [...] PERCENT (BEAKER) (test code = 2801) POCT-GLUCOSE [id number] 21:08:00 Test Item Value Reference Range Interpretation Comments POC-GLUCOSE METER 202 mg/dL 70-110 H TESTED AT [facility] 6720 (BEAKER) (test code = [facility] 1538) [address] POCT-GLUCOSE [id number] 16:50:00 Test Item Value Reference Range Interpretation Comments POC-GLUCOSE METER 287 mg/dL 70-110 H TESTED AT [facility] 6720 (BEAKER) (test code = [facility] 1538) [address] POCT-GLUCOSE [id number] 12:21:00 Test Item Value Reference Range Interpretation Comments POC-GLUCOSE METER 213 mg/dL 70-110 H TESTED AT [facility] 6720 [facility] (test code = [facility] 1538) [address] POCT-GLUCOSE [id number] 08:28:00 Test Item Value Reference Range Interpretation Comments POC-GLUCOSE METER 178 mg/dL 70-110 H TESTED AT [facility] 6720 (BEAKER) (test code = [facility] 1538) [address] CALCIUM, [id number] 07:06:00 Test Item Value Reference Range Interpretation Comments CALCIUM IONIZED (BEAKER) (test 0.99 mmol/L 1.12-1.27 L code = 698) PH, BLOOD (BEAKER) (test code = 7.42 1810) [id number] 05:37:00 Test Item Value Reference Range Interpretation Comments PHOSPHORUS (BEAKER) (test code = 3.5 mg/dL 2.3-4.7 604) [id number] 05:37:00 Test Item Value Reference Range Interpretation Comments MAGNESIUM (BEAKER) (test code = 1.6 mg/dL 1.6-2.6 627) BASIC METABOLIC [id number] 05:37:00 Test Item Value Reference Range Interpretation [...] PATIEN TS. CBC W/PLT COUNT & AUTO [id number] 05:07:00 Test Item Value Reference Range Interpretation [...] PERCENT (BEAKER) (test code = 2801) POCT-GLUCOSE [id number] 21:24:00 Test Item Value Reference Range Interpretation Comments POC-GLUCOSE METER 255 mg/dL 70-110 H TESTED AT [place] [address] ([facility]) (test [facility] = [facility] 1538) [address] POCT-GLUCOSE [id number] 17:11:00 Test Item Value Reference Range Interpretation Comments POC-GLUCOSE METER 244 mg/dL 70-110 H TESTED AT [place] [address] ([facility]) (test code = [facility] Dylon [facility] 1538) [address] POCT-GLUCOSE [id number] 11:54:00 Test Item Value Reference Range Interpretation Comments POC-GLUCOSE METER 209 mg/dL 70-110 H TESTED AT [place] [address] ([facility]) (test code = [facility] Dylon [facility] 1538) [address] POCT-GLUCOSE [id number] 08:15:00 Test Item Value Reference Range Interpretation Comments POC-GLUCOSE METER 132 mg/dL 70-110 H TESTED AT [place] [address] ([facility]) (test code = [facility] Dylon [facility] 1538) [address] RAD, CHEST, 1 VIEW, NON [id number] 07:44:00Reason for exam:->edemaShould this be performed at the bedside?->YesFINAL REPORT Chest one view AP 08/07/2017 7:44 AM CLINICAL INDICATION: edema COMPARISON: 05/31/2017 IMPRESSION: Cardiomediastinal contours are stable. There is mild pulmonary edema,asymmetric to the right. There are trace bilateral pleural effusions, with bibasilar linear atelectasis. Sternotomy wires remain midline. Signed: Eder Cespedes Verified Date/Time: 08/07/2017 07:44:22 Reading Location: [facility] Radiology Reading Room [id number] 05:30:00 Test Item Value Reference Range Interpretation Comments FERRITIN (BEAKER) (test code = 361) 87 ng/mL 5-275 CBC W/PLT COUNT & AUTO [id number] 05:21:00 Test Item Value Reference Range Interpretation [...] % 20-55 L (test code = 2590) [id number] 05:11:00 Test Item Value Reference Range Interpretation Comments PHOSPHORUS (BEAKER) (test code = 3.6 mg/dL 2.3-4.7 604) [id number] 05:11:00 Test Item Value Reference Range Interpretation Comments MAGNESIUM (BEAKER) (test code = 2.0 mg/dL 1.6-2.6 627) BASIC METABOLIC [id number] 05:11:00 Test Item Value Reference Range Interpretation [...] H (BEAKER) (test code = 700) CALCIUM, [id number] 04:58:00 Test Item Value Reference Range Interpretation Comments CALCIUM IONIZED (BEAKER) (test 1.04 mmol/L 1.12-1.27 L code = 698) PH, BLOOD (BEAKER) (test code = 7.41 1810) RETICULOCYTE [id number] 04:51:00 Test Item Value Reference Range Interpretation Comments RETICULOCYTE COUNT PCT (BEAKER) (test 1.2 % 0.5-1.7 code = 575) POCT-GLUCOSE [id number] 20:49:00 Test Item Value Reference Range Interpretation Comments POC-GLUCOSE METER 202 mg/dL 70-110 H TESTED AT [facility] 6720 (BEAKER) (test code = JULIANO Osborne [facility] 1538) [address] CREATININE, RANDOM [id number] 18:38:00 Test Item Value Reference Range Interpretation Comments CREATININE URINE (BEAKER) (test 56.3 mg/dL code = 375) Reference Range: No NormalsPROTEIN, RANDOM [id number] 18:38:00 Test Item Value Reference Range Interpretation Comments PROTEIN, URINE (BEAKER) (test code 189 mg/dL 0-14 H = 1569) URINALYSIS W/ [id number] 18:34:00 Test Item Value Reference Range Interpretation [...] 516) SOURCE(BEAKER) (test code = Urine, Voided 9934) POCT-GLUCOSE [id number] 17:38:00 Test Item Value Reference Range Interpretation Comments POC-GLUCOSE METER 143 mg/dL 70-110 H TESTED AT [place] [address] (BEAKER) (test code = [place]ULIANO [place] 1538) [address] POCT-GLUCOSE [id number] 12:30:00 Test Item Value Reference Range Interpretation Comments POC-GLUCOSE METER 218 mg/dL 70-110 H TESTED AT [place] [address] (BEAKER) (test code = JULIANO [place] 1538) [address] POCT-GLUCOSE [id number] 08:00:00 Test Item Value Reference Range Interpretation Comments POC-GLUCOSE METER 134 mg/dL 70-110 H TESTED AT [place] [address] (BEAKER) (test code = [place]ULIANO [place] 1538) [address] CBC W/PLT COUNT & AUTO [id number] 04:23:00 Test Item Value Reference Range Interpretation [...] (BEAKER) (test code = 2801) BASIC METABOLIC [id number] 04:13:00 Test Item Value Reference Range Interpretation [...] S NOT APPLICABLE FOR DIALYSIS PATIEN TS. [id number] 04:10:00 Test Item Value Reference Range Interpretation Comments PHOSPHORUS (BEAKER) (test code = 4.9 mg/dL 2.3-4.7 H 604) [id number] 04:10:00 Test Item Value Reference Range Interpretation Comments MAGNESIUM (BEAKER) (test code = 1.4 mg/dL 1.6-2.6 L 627) [id number] 04:08:00 Test Item Value Reference Range Interpretation Comments FIBRINOGEN LEVEL (BEAKER) (test 548 mg/dl 225-434 H code = 658) [id number] 04:08:00 Test Item Value Reference Range Interpretation Comments PARTIAL THROMBOPLASTIN TIME 37.7 seconds 22.5-36.0 H (BEAKER) (test code = 760) PROTHROMBIN [id number] 04:07:00 Test Item Value Reference Range Interpretation Comments PROTIME (BEAKER) (test code = 16.2 seconds 11.7-14.7 H 759) INR (BEAKER) (test code = 370) 1.3 <=5.9 RECOMMENDED COUMADIN/WARFARIN INR THERAPY RANGESSTANDARD DOSE: 2.0 - 3.0 Includes: PROPHYLAXIS forvenous thrombosis, systemic embolization; TREATMENT for venous thrombosis and/or pulmonary embolus.HIGH RISK: Target INR is 2.5-3.5 for patients with mechanical heart valves.[id number] 16:59:00 Test Item Value Reference Range Interpretation Comments ACTIVATED CLOTTING TIME 219 sec TEST ED AT [place] [address] ([facility]) (test code = JULIANO Osborne [place] 441) [address] BASIC METABOLIC [id number] 14:25:00 Test Item Value Reference Range Interpretation [...] NOT APPLICABLE FOR DIALYSIS PATIEN TS. POCT-GLUCOSE [id number] 13:21:00 Test Item Value Reference Range Interpretation Comments POC-GLUCOSE METER 170 mg/dL 70-110 H TEST[facility] AT [place] [address] [facility] (test code = JULIANO Osborne [place] 1538) [address] POTASSIUM-STAT [id number] 13:20:00 Test Item Value Reference Range Interpretation Comments POTASSIUM (BEAKER) (test code = 4.2 meq/L 3.6-5.5 379) SODIUM NA-STAT [id number] 13:20:00 Test Item Value Reference Range Interpretation Comments SODIUM (BEAKER) (test code = 381) 133 meq/L 135-148 L HGB/HCT (H&H) - STAT [id number] 12:34:00 Test Item Value Reference Range Interpretation Comments HEMOGLOBIN (BEAKER) (test code = 10.8 g/dL 12.0-15.0 L 410) HEMATOCRIT (BEAKER) (test code = 32.0 % 36.0-45.0 L 411) POTASSIUM-STAT [id number] 08:15:00 Test Item Value Reference Range Interpretation Comments POTASSIUM (BEAKER) (test code = 4.1 meq/L 3.6-5.5 379) BLOOD GAS, [id number] 08:15:00 Test Item Value Reference Range Interpretation [...] code = 1819) 70.0 % SODIUM NA-STAT [id number] 08:15:00 Test Item Value Reference Range Interpretation Comments SODIUM (BEAKER) (test code = 381) 130 meq/L 135-148 L GLUCOSE-STAT [id number] 08:15:00 Test Item Value Reference Range Interpretation Comments GLUCOSE RANDOM (BEAKER) (test code 172 mg/dL 70-110 H = 652) HGB/HCT (H&H) - STAT [id number] 08:15:00 Test Item Value Reference Range Interpretation Comments HEMOGLOBIN (BEAKER) (test code = 8.8 g/dL 12.0-15.0 L 410) HEMATOCRIT (BEAKER) (test code = 26.0 % 36.0-45.0 L 411) BASIC METABOLIC [id number] 07:37:00 Test Item Value Reference Range Interpretation [...] PATIEN TS. CBC W/PLT COUNT & AUTO [id number] 07:20:00 Test Item Value Reference Range Interpretation [...] % 0-1 PERCENT (BEAKER) (test code = 2800) POCT-GLUCOSE [id number] 07:03:00 Test Item Value Reference Range Interpretation Comments POC-GLUCOSE METER 186 mg/dL 70-110 H TESTED AT [facility] 6720 (BEAKER) (test code = JULIANO [place] 1538) [address] B-TYPE NATRIURETIC FACTOR (BNP)2017-06-10 12:44:00 Test Item Value Reference Range Interpretation Comments B-TYPE NATRIURETIC PEPTIDE 1264 pg/mL 0-100 H (BEAKER) (test code = 700) [id number] 12:36:00 Test Item Value Reference Range Interpretation Comments MAGNESIUM (BEAKER) (test code = 1.6 mg/dL 1.6-2.6 627) BASIC METABOLIC [id number] 12:36:00 Test Item Value Reference Range Interpretation [...] NOT APPLICABLE FOR DIALYSIS PATIEN TS. POCT-GLUCOSE [id number] 12:04:00 Test Item Value Reference Range Interpretation Comments POC-GLUCOSE METER 274 mg/dL 70-110 H TESTED AT [facility] 6720 (BEAKER) (test code = [facility] 1538) [address] POCT-GLUCOSE [id number] 07:21:00 Test Item Value Reference Range Interpretation Comments POC-GLUCOSE METER 137 mg/dL 70-110 H TEST[facility] AT [facility] 6720 [facility] (test code = [facility] 1538) [address] BASIC METABOLIC [id number] 05:10:00 Test Item Value Reference Range Interpretation [...] 0-0 (BEAKER) (test code = 413) POCT-GLUCOSE [id number] 21:23:00 Test Item Value Reference Range Interpretation Comments POC-GLUCOSE METER 240 mg/dL 70-110 H TESTED AT [facility] 6720 ([facility]) (test code = JULIANO Osborne [place] 1538) [address] POCT-GLUCOSE [id number] 16:42:00 Test Item Value Reference Range Interpretation Comments POC-GLUCOSE METER 234 mg/dL 70-110 H TESTED AT [facility] 6720 ([facility]) (test code = JULIANO Osborne [place] 1538) [address] POCT-GLUCOSE [id number] 13:22:00 Test Item Value Reference Range Interpretation Comments POC-GLUCOSE METER 166 mg/dL 70-110 H TESTED AT [facility] 6720 ([facility]) (test code = JULIANO Osborne [place] 1538) [address] RAD, CHEST, 1 VIEW, NON [id number] 09:43:00Reason for exam:->s/p ACBShould this be performed [...] wires are present. No pneumothorax. Signed: Lynda Ringepemily Verified Date/Time: 05/31/2017 09:43:30 ReadingLocation: [facility] B1 C013X Ortho Consult Reading Room POCT-GLUCOSE [id number] 06:57:00 Test Item Value Reference Range Interpretation Comments POC-GLUCOSE METER 136 mg/dL 70-110 H TESTED AT [facility] 6720 ([facility]) (test code = JULIANO Osborne [facility] 1538) [address] CALCIUM, [id number] 06:41:00 Test Item Value Reference Range Interpretation Comments CALCIUM IONIZED (BEAKER) (test 1.10 mmol/L 1.12-1.27 L code = 698) PH, BLOOD (BEAKER) (test code = 7.42 1810) [id number] 06:17:00 Test Item Value Reference Range Interpretation Comments PHOSPHORUS (BEAKER) (test code = 3.3 mg/dL 2.3-4.7 604) [id number] 06:17:00 Test Item Value Reference Range Interpretation Comments MAGNESIUM (BEAKER) (test code = 1.8 mg/dL 1.6-2.6 627) BASIC METABOLIC [id number] 06:17:00 Test Item Value Reference Range Interpretation [...] PATIEN TS. CBC W/PLT COUNT & AUTO [id number] 05:07:00 Test Item Value Reference Range Interpretation [...] PERCENT (BEAKER) (test code = 2801) POCT-GLUCOSE [id number] 20:56:00 Test Item Value Reference Range Interpretation Comments POC-GLUCOSE METER 196 mg/dL 70-110 H TESTED AT [facility] 6720 [facility] (test code = [facility] 1538) [address] POCT-GLUCOSE [id number] 16:42:00 Test Item Value Reference Range Interpretation Comments POC-GLUCOSE METER 196 mg/dL 70-110 H TESTED AT [facility] 67 ([facility]) (test code = [facility] 1538) [address] POCT-GLUCOSE [id number] 11:45:00 Test Item Value Reference Range Interpretation Comments POC-GLUCOSE METER 215 mg/dL 70-110 H TESTED AT [place] [address] ([facility] (test code = [facility] 1538) [address] RAD, CHEST, 1 VIEW, NON [id number] 11:15:00Reason for exam:->s/p ACBShould this be performed at the bedside?->YesFINAL REPORT Chest one view compared to May 28, 2017 Discussion: Airspace opacities are seen in both lower lung regions, probably atelectasis. Correlate clinically for infection. I could not exclude small effusions. No pneumothorax. Upper lungs clear. Signed: Jeannette Nava MDReport Verified Date/Time: 05/30/2017 11:15:07 Reading Location: [facility] Reading Room CALCIUM, [id number] 09:21:00 Test Item Value Reference Range Interpretation Comments CALCIUM IONIZED (BEAKER) (test 1.11 mmol/L 1.12-1.27 L code = 698) PH, BLOOD (BEAKER) (test code = 7.36 1810) BASIC METABOLIC [id number] 07:37:00 Test Item Value Reference Range Interpretation [...] S NOT APPLICABLE FOR DIALYSIS PATIEN TS. [id number] 07:28:00 Test Item Value Reference Range Interpretation Comments PHOSPHORUS (BEAKER) (test code = 3.8 mg/dL 2.3-4.7 604) [id number] 07:28:00 Test Item Value Reference Range Interpretation Comments MAGNESIUM (BEAKER) (test code = 1.9 mg/dL 1.6-2.6 627) CBC W/PLT COUNT & AUTO [id number] 07:26:00 Test Item Value Reference Range Interpretation [...] PERCENT (BEAKER) (test code = 2801) POCT-GLUCOSE [id number] 07:21:00 Test Item Value Reference Range Interpretation Comments POC-GLUCOSE METER 146 mg/dL 70-110 H TESTED AT [place] [address] ([facility]) (test code = [facility] 1538) [address] POCT-GLUCOSE [id number] 22:02:00 Test Item Value Reference Range Interpretation Comments POC-GLUCOSE METER 201 mg/dL 70-110 H TESTED AT [place] [address] ([facility]) (test code = [facility] 1538) [address] POCT-GLUCOSE [id number] 18:27:00 Test Item Value Reference Range Interpretation Comments POC-GLUCOSE METER 240 mg/dL 70-110 H TESTED AT [place] [address] ([facility]) (test code = [facility] 1538) [address] POCT-GLUCOSE [id number] 12:13:00 Test Item Value Reference Range Interpretation Comments POC-GLUCOSE METER 193 mg/dL 70-110 H TESTED AT [place] [address] ([facility]) (test code = [facility] 1538) 149[address] POCT-GLUCOSE [id number] 09:02:00 Test Item Value Reference Range Interpretation Comments POC-GLUCOSE METER 132 mg/dL 70-110 H TESTED AT [place] [address] ([facility]) (test code = [facility] 1538) [address] CALCIUM, [id number] 05:42:00 Test Item Value Reference Range Interpretation Comments CALCIUM IONIZED ([facility]) (test 1.12 mmol/L 1.12-1.27 code = 698) PH, BLOOD ([facility]) (test code = 7.34 1810) COMPREHENSIVE METABOLIC [id number] 05:33:00 Test Item Value Reference Range Interpretation Comments TOTAL PROTEIN 5.9 gm/dL 6.0-8.3 L ([facility]) (test code = 770) ALBUMIN ([facility]) 2.7 g/dL 3.5-5.0 L (test code = 1145) ALKALINE PHOSPHATASE 130 U/L 40-150 ([facility]) (test code = 346) BILIRUBIN TOTAL 0.3 mg/dL 0.2-1.2 ([facility]) (test code = 377) SODIUM ([facility]) (test 135 meq/L 136-145 L code = [...] S NOT APPLICABLE FOR DIALYSIS PATIEN TS. [id number] 05:32:00 Test Item Value Reference Range Interpretation Comments PHOSPHORUS (BEAKER) (test code = 3.6 mg/dL 2.3-4.7 604) [id number] 05:32:00 Test Item Value Reference Range Interpretation Comments MAGNESIUM (BEAKER) (test code = 2.2 mg/dL 1.6-2.6 627) CBC W/PLT COUNT & AUTO [id number] 05:01:00 Test Item Value Reference Range Interpretation [...] PERCENT (BEAKER) (test code = 2801) POCT-GLUCOSE [id number] 21:04:00 Test Item Value Reference Range Interpretation Comments POC-GLUCOSE METER 165 mg/dL 70-110 H TESTED AT [facility] 6720 [facility] ([facility] 1538) [address] POCT-GLUCOSE [id number] 17:30:00 Test Item Value Reference Range Interpretation Comments POC-GLUCOSE METER 236 mg/dL 70-110 H TESTED AT [facility] 6720 [facility] (test code = JULIANO Osborne [facility] 1538) [address] RAD, CHEST, 1 VIEW, NON [id number] 13:53:00Reason for exam:->assess for ill-defined opacityShould this [...] [place] Verified Date/Time: 05/28/2017 13:53:03 Reading Location: [address] Radiology Reading Room POCT-GLUCOSE [id number] 11:53:00 Test Item Value Reference Range Interpretation Comments POC-GLUCOSE METER 215 mg/dL 70-110 H TESTED AT [facility] 6720 (BEAKER) (test code = JULIANO Osborne [facility] 1538) [address] POCT-GLUCOSE [id number] 08:32:00 Test Item Value Reference Range Interpretation Comments POC-GLUCOSE METER 168 mg/dL 70-110 H TESTED AT [facility] 6720 (BEAKER) (test code = JULIANO Osborne [facility] 1538) [address] CALCIUM, [id number] 05:44:00 Test Item Value Reference Range Interpretation Comments CALCIUM IONIZED (BEAKER) (test 1.09 mmol/L 1.12-1.27 L code = 698) PH, BLOOD (BEAKER) (test code = 7.38 1810) [id number] 05:44:00 Test Item Value Reference Range Interpretation Comments PHOSPHORUS (BEAKER) (test code = 3.5 mg/dL 2.3-4.7 604) [id number] 05:44:00 Test Item Value Reference Range Interpretation Comments MAGNESIUM (BEAKER) (test code = 1.9 mg/dL 1.6-2.6 627) BASIC METABOLIC [id number] 05:44:00 Test Item Value Reference Range Interpretation [...] PATIEN TS. CBC W/PLT COUNT & AUTO [id number] 05:05:00 Test Item Value Reference Range Interpretation [...] PERCENT (BEAKER) (test code = 2801) POCT-GLUCOSE [id number] 21:03:00 Test Item Value Reference Range Interpretation Comments POC-GLUCOSE METER 173 mg/dL 70-110 H TESTED AT [place] [address] ([facility]) (test code = [facility] Dylon [facility] 1538) [address] [id number] 18:15:00 Test Item Value Reference Range Interpretation Comments ACTIVATED CLOTTING TIME 147 sec TEST ED AT [place] [address] ([facility]) (test code = [facility] [place] [facility] 441) [address] [id number] 18:15:00 Test Item Value Reference Range Interpretation Comments ACTIVATED CLOTTING TIME 246 sec TEST ED AT [place] [address] ([facility]) (test code = [facility] 441) [address] POCT-GLUCOSE [id number] 12:39:00 Test Item Value Reference Range Interpretation Comments POC-GLUCOSE METER 219 mg/dL 70-110 H TESTED AT [place] [address] ([facility]) (test code = [facility] 1538) [address] RAD, CHEST, 1 VIEW, NON [id number] 10:11:00Reason for exam:->pl effusionShould this be performed at the bedside?->YesFINAL REPORT Chest one view compared to May 26 Discussion: There is cardiac prominence. Upper lungs are clear. Ill-defined basilar densities are similar probably atelectasis. No gross effusion or pneumothorax with bilateral chest tubes in place. Signed: Jeannette Navaeport Verified Date/Time: 05/27/2017 10:11:44 Reading Location: [facility] Radiology Reading Room POCT-GLUCOSE METER 2017-05-27 07:05:00 Test Item Value Reference Range Interpretation Comments POC-GLUCOSE METER 167 mg/dL 70-110 H TESTED AT [facility] 6720 (BEAKER) (test code = JULIANO Osborne [facility] 1538) [address] CALCIUM, [id number] 06:20:00 Test Item Value Reference Range Interpretation Comments CALCIUM IONIZED (BEAKER) (test 0.98 mmol/L 1.12-1.27 L code = 698) PH, BLOOD (BEAKER) (test code = 7.50 1810) [id number] 04:56:00 Test Item Value Reference Range Interpretation Comments PHOSPHORUS (BEAKER) (test code = 2.6 mg/dL 2.3-4.7 604) [id number] 04:56:00 Test Item Value Reference Range Interpretation Comments MAGNESIUM (BEAKER) (test code = 2.0 mg/dL 1.6-2.6 627) BASIC METABOLIC [id number] 04:56:00 Test Item Value Reference Range Interpretation [...] PATIEN TS. CBC W/PLT COUNT & AUTO [id number] 04:36:00 Test Item Value Reference Range Interpretation [...] 417) IMMATURE GRANULOCYTES-RELATIVE 1 % 0-1 PERCENT ([facility]) (test code = 2801) POCT-GLUCOSE [id number] 21:29:00 Test Item Value Reference Range Interpretation Comments POC-GLUCOSE METER 147 mg/dL 70-110 H TESTED AT [place] [address] ([facility]) (test code = [facility] [employer] [facility] 1538) [address] POCT-GLUCOSE [id number] 17:51:00 Test Item Value Reference Range Interpretation Comments POC-GLUCOSE METER 224 mg/dL 70-110 H TESTED AT [place] [address] ([facility]) (test code = [facility] [employer] [facility] 1538) [address] POCT-GLUCOSE [id number] 13:53:00 Test Item Value Reference Range Interpretation Comments POC-GLUCOSE METER 182 mg/dL 70-110 H TESTED AT [place] [address] ([facility]) (test code = [facility] [employer] [facility] 1538) [address] RAD, CHEST, 1 VIEW, NON [id number] 08:44:00Reason for exam:->pl effusionShould this be performed [...] MDReport Verified Date/Time: 05/26/2017 08:44:25 Reading Location: [address] Radiology Reading Room POCT- GLUCOSE [id number] 07:43:00 Test Item Value Reference Range Interpretation Comments POC-GLUCOSE METER 113 mg/dL 70-110 H TESTED AT [facility] 6720 (BEAKER) (test code = JULIANO [place] 1538) [address] CALCIUM, [id number] 06:31:00 Test Item Value Reference Range Interpretation Comments CALCIUM IONIZED (BEAKER) (test 1.07 mmol/L 1.12-1.27 L code = 698) PH, BLOOD (BEAKER) (test code = 7.38 1810) [id number] 04:51:00 Test Item Value Reference Range Interpretation Comments PHOSPHORUS (BEAKER) (test code = 3.2 mg/dL 2.3-4.7 604) [id number] 04:51:00 Test Item Value Reference Range Interpretation Comments MAGNESIUM (BEAKER) (test code = 2.1 mg/dL 1.6-2.6 627) BASIC METABOLIC [id number] 04:51:00 Test Item Value Reference Range Interpretation [...] PATIEN TS. CBC W/PLT COUNT & AUTO [id number] 04:27:00 Test Item Value Reference Range Interpretation [...] PERCENT (BEAKER) (test code = 2801) POCT-GLUCOSE [id number] 23:48:00 Test Item Value Reference Range Interpretation Comments POC-GLUCOSE METER 123 mg/dL 70-110 H TESTED AT [facility] 6720 (BEAKER) (test code = JULIANO Osborne [place] 1538) [address] POCT-GLUCOSE [id number] 16:46:00 Test Item Value Reference Range Interpretation Comments POC-GLUCOSE METER 178 mg/dL 70-110 H TESTED AT [facility] 6720 (BEAKER) (test code = JULIANO Osborne [place] 1538) [address] BASIC METABOLIC [id number] 05:53:00 Test Item Value Reference Range Interpretation [...] S NOT APPLICABLE FOR DIALYSIS PATIEN TS. [id number] 05:52:00 Test Item Value Reference Range Interpretation Comments PHOSPHORUS (BEAKER) (test code = 4.2 mg/dL 2.3-4.7 604) [id number] 05:52:00 Test Item Value Reference Range Interpretation Comments MAGNESIUM (BEAKER) (test code = 2.3 mg/dL 1.6-2.6 627) CALCIUM, [id number] 05:27:00 Test Item Value Reference Range Interpretation Comments CALCIUM IONIZED (BEAKER) (test 1.12 mmol/L 1.12-1.27 code = 698) PH, BLOOD (BEAKER) (test code = 7.38 1810) CBC W/PLT COUNT & AUTO [id number] 05:07:00 Test Item Value Reference Range Interpretation [...] = 2801) RAD, CHEST, 1 VIEW, NON [id number] 04:45:00Reason for exam:->pl effusionShould this be performed at the bedside?->YesFINAL REPORT RAD, CHEST, 1 VIEW, NON DEPT INDICATION: pl effusion COMPARISON:Prior day's exam FINDINGS: Portable frontal view of the chest. IMPRESSION: Support Lines: Stable.Lungs and pleura: Unchanged airspace and pleural opacities. No pneumothorax.Heart and mediastinum: Stable contours. Stable surgical changes.Additional findings: None. Signed: JR Boswell Robert MDReport Verified Date/Time: 05/25/2017 04:45:08 Reading Location: [address] Body Reading Room POCT-GLUCOSE [id number] 01:52:00 Test Item Value Reference Range Interpretation Comments POC-GLUCOSE METER 126 mg/dL 70-110 H TESTED AT [place] [address] ([facility]) (test code = JULIANO [place] 1538) [address] POCT-GLUCOSE [id number] 13:07:00 Test Item Value Reference Range Interpretation Comments POC-GLUCOSE METER 118 mg/dL 70-110 H TESTED AT [facility] 6720 ([facility]) (test code = JULIANO Osborne [facility] 1538) [address] BRONCHIAL CULTURE + GRAM [id number] 11:35:00 Test Item Value Reference Range Interpretation Comments CULTURE ([facility]) (test code = 1095) Amikacin [...] <1+ gram (BEAKER) (test code = positive 032033) cocci in pairs GRAM STAIN RESULT 1+ gram (BEAKER) (test code = variable rods 901710) 1+ Normal respiratory todd presentRAD, CHEST, 1 VIEW, NON [id number] 06:50:00Reason for exam:->pl effusionShould this be performed at the bedside?->YesFINAL REPORT RAD, CHEST, 1 VIEW, NON DEPT INDICATION: pl effusion COMPARISON:Prior day's exam FINDINGS: Portable frontal view of the chest. IMPRESSION: Support Lines: Stable.Lungs and pleura: Unchanged airspace and pleural opacities. No pneumothorax.Heart and mediastinum: Stable contours. Stable surgical changes.Additional findings: None. Signed: JR Boswell Robert MDReport Verified Date/Time: 05/24/2017 06:50:08 Reading Location: [facility] C013Y CT Body Reading Room BASIC METABOLIC [id number] 04:19:00 Test Item Value Reference Range Interpretation [...] NOT APPLICABLE FOR DIALYSIS PATIEN TS. CALCIUM, [id number] 04:16:00 Test Item Value Reference Range Interpretation Comments CALCIUM IONIZED (BEAKER) (test 1.06 mmol/L 1.12-1.27 L code = 698) PH, BLOOD (BEAKER) (test code = 7.40 1810) [id number] 04:11:00 Test Item Value Reference Range Interpretation Comments PHOSPHORUS (BEAKER) (test code = 6.0 mg/dL 2.3-4.7 H 604) [id number] 04:11:00 Test Item Value Reference Range Interpretation Comments MAGNESIUM (BEAKER) (test code = 2.4 mg/dL 1.6-2.6 627) CBC W/PLT COUNT & AUTO [id number] 03:50:00 Test Item Value Reference Range Interpretation [...] PERCENT (BEAKER) (test code = 2801) POCT-GLUCOSE [id number] 20:45:00 Test Item Value Reference Range Interpretation Comments POC-GLUCOSE METER 143 mg/dL 70-110 H TESTED AT [facility] 6720 (BEAKER) (test code = JULIANO REYEZ 1538) [address] POCT-GLUCOSE [id number] 20:45:00 Test Item Value Reference Range Interpretation Comments POC-GLUCOSE METER 145 mg/dL 70-110 H TESTED AT [facility] 6720 (BEAKER) (test code = JULIANO [place] 1538) [address] [id number] 13:37:00 Test Item Value Reference Range Interpretation Comments PREALBUMIN (BEAKER) 10 mg/dL 14-45 L Specimen slightly (test code = 586) hemolyzed OXYGEN SATURATION, [id number] 12:31:00 Test Item Value Reference Range Interpretation Comments O2 SATURATION (MEASURED) (BEAKER) 94.5 % (test code = 1455) [id number] 11:02:00 Test Item Value Reference Range Interpretation Comments PREALBUMIN (BEAKER) (test code = 10 mg/dL 14-45 L 586) RAD, CHEST, 1 VIEW, NON [id number] 05:14:00while patient is intubated or has chest [...] MDReport Verified Date/Time: 05/23/2017 05:14:04 Reading Location: [facility] C013Y CT Body Reading Room BASIC METABOLIC [id number] 03:48:00 Test Item Value Reference Range Interpretation [...] S NOT APPLICABLE FOR DIALYSIS PATIEN TS. [id number] 03:46:00 Test Item Value Reference Range Interpretation Comments MAGNESIUM (BEAKER) 2.4 mg/dL 1.6-2.6 Specimen slightly (test code = 627) hemolyzed [id number] 03:46:00 Test Item Value Reference Range Interpretation Comments PHOSPHORUS (BEAKER) 6.5 mg/dL 2.3-4.7 H Specimen slightly (test code = 604) hemolyzed CBC W/PLT COUNT & AUTO [id number] 03:26:00 Test Item Value Reference Range Interpretation [...] (BEAKER) (test code = 2801) BLOOD GAS, [id number] 03:18:00 Test Item Value Reference Range Interpretation [...] (test code = 1819) 36.0 % CALCIUM, [id number] 16:32:00 Test Item Value Reference Range Interpretation Comments CALCIUM IONIZED (BEAKER) (test 1.11 mmol/L 1.12-1.27 L code = 698) PH, BLOOD (BEAKER) (test code = 7.39 1810) BASIC METABOLIC [id number] 15:43:00 Test Item Value Reference Range Interpretation [...] NOT APPLICABLE FOR DIALYSIS PATIEN TS. POCT-GLUCOSE [id number] 12:53:00 Test Item Value Reference Range Interpretation Comments POC-GLUCOSE METER 118 mg/dL 70-110 H TESTED AT [facility] 6720 (BEAKER) (test code = JULIANO [place] 1538) [address] BLOOD GAS, [id number] 10:42:00 Test Item Value Reference Range Interpretation [...] (test code = 1819) 40.0 % POCT-GLUCOSE [id number] 06:46:00 Test Item Value Reference Range Interpretation Comments POC-GLUCOSE METER 106 mg/dL 70-110 TESTED AT [facility] 6720 (BEAKER) (test code = JULIANO [place] 1538) [address] RAD, CHEST, 1 VIEW, NON [id number] 05:05:00while patient is intubated or has chest [...] exam.Additional findings: None. Signed: JR Elbert, Kelly Bettencourt Verified Date/Time: 05/22/2017 05:05:00 Reading Location: [address] Body ReadingRoom BASIC METABOLIC [id number] 05:00:00 Test Item Value Reference Range Interpretation [...] S NOT APPLICABLE FOR DIALYSIS PATIEN TS. [id number] 04:41:00 Test Item Value Reference Range Interpretation Comments PHOSPHORUS (BEAKER) (test code = 6.4 mg/dL 2.3-4.7 H 604) [id number] 04:41:00 Test Item Value Reference Range Interpretation Comments MAGNESIUM (BEAKER) (test code = 2.6 mg/dL 1.6-2.6 627) CALCIUM, [id number] 04:26:00 Test Item Value Reference Range Interpretation Comments CALCIUM IONIZED (BEAKER) (test 1.09 mmol/L 1.12-1.27 L code = 698) PH, BLOOD (BEAKER) (test code = 7.40 1810) OXYGEN SATURATION, [id number] 04:25:00 Test Item Value Reference Range Interpretation Comments O2 SATURATION (MEASURED) (BEAKER) 77.0 % (test code = 1455) CBC W/PLT COUNT & AUTO [id number] 04:17:00 Test Item Value Reference Range Interpretation [...] % 0-1 PERCENT (BEAKER) (test code = 280) LACTIC ACID, ARTERIAL, WHOLE [id number] 00:07:00 Test Item Value Reference Range Interpretation Comments LACTATE BLOOD 1.0 mmol/L 0.5-2.2 Specimen sligh tly ARTERIAL (2) (BEAKER) hemoly zed (test code = 2874) Effective 08/02/2015: Units/Reference Range ChangeNew: 0.5-2.2 mmol/L Previous: 5-20 mg/dLPOCT-GLUCOSE [id number] 23:47:00 Test Item Value Reference Range Interpretation Comments POC-GLUCOSE METER 180 mg/dL 70-110 H TESTED AT [facility] 6720 (BEAKER) (test code = JULIANO REYEZ 1538) [address] BLOOD GAS, [id number] 23:46:00 Test Item Value Reference Range Interpretation [...] code = 1819) 100.0 % SODIUM NA-STAT [id number] 23:46:00 Test Item Value Reference Range Interpretation Comments SODIUM (BEAKER) (test code = 381) 134 meq/L 135-148 L GLUCOSE-STAT [id number] 23:46:00 Test Item Value Reference Range Interpretation Comments GLUCOSE RANDOM (BEAKER) (test code 119 mg/dL 70-110 H = 652) HGB/HCT (H&H) - STAT [id number] 23:46:00 Test Item Value Reference Range Interpretation Comments HEMOGLOBIN (BEAKER) (test code = 8.8 g/dL 12.0-15.0 L 410) HEMATOCRIT (BEAKER) (test code = 26.0 % 36.0-45.0 L 411) OXYGEN SATURATION, [id number] 23:45:00 Test Item Value Reference Range Interpretation Comments O2 SATURATION (MEASURED) (BEAKER) 68.1 % (test code = 1455) POTASSIUM-STAT [id number] 23:45:00 Test Item Value Reference Range Interpretation Comments POTASSIUM (BEAKER) (test code = 5.5 meq/L 3.6-5.5 379) POCT-GLUCOSE [id number] 20:58:00 Test Item Value Reference Range Interpretation Comments POC-GLUCOSE METER 133 mg/dL 70-110 H TESTED AT [facility] 67[facility] (test code = [place]O [place] 1538) [address] POCT-GLUCOSE [id number] 17:58:00 Test Item Value Reference Range Interpretation Comments POC-GLUCOSE METER 210 mg/dL 70-110 H TESTED AT [facility] 6720 [facility] (test code = JULIANO Osborne [facility] 1538) [address] POCT-GLUCOSE [id number] 17:58:00 Test Item Value Reference Range Interpretation Comments POC-GLUCOSE METER 211 mg/dL 70-110 H TESTED AT [place] [address] [facility] (test code = JULIANO Osborne [place] 1538) [address] POCT-GLUCOSE [id number] 17:58:00 Test Item Value Reference Range Interpretation Comments POC-GLUCOSE METER 232 mg/dL 70-110 H TESTED AT [place] [address] (BEAKER) (test code = JULIANO Osborne [place] 1538) [address] POCT-GLUCOSE [id number] 17:58:00 Test Item Value Reference Range Interpretation Comments POC-GLUCOSE METER 262 mg/dL 70-110 H TESTED AT [place] [address] (BEAKER) (test code = JULIANO Osborne [facility] 1538) [address] BLOOD GAS, [id number] 17:01:00 Test Item Value Reference Range Interpretation [...] (test code = 1819) 60.0 % POTASSIUM-STAT [id number] 17:00:00 Test Item Value Reference Range Interpretation Comments POTASSIUM (BEAKER) (test code = 4.8 meq/L 3.6-5.5 379) POCT-GLUCOSE [id number] 15:52:00 Test Item Value Reference Range Interpretation Comments POC-GLUCOSE METER 267 mg/dL 70-110 H TESTED AT [place] [address] (BEAKER) (test code = JULIANO Osborne [place] 1538) [address] POCT-GLUCOSE [id number] 14:42:00 Test Item Value Reference Range Interpretation Comments POC-GLUCOSE METER 231 mg/dL 70-110 H TESTED AT [facility] 6720 (BEAKER) (test code = JULIANO [place] 1538) [address] BODY FLUID CELL COUNT WITH [id number] 14:41:00 Test Item Value Reference Range Interpretation [...] Tube (test code = 2873) BASIC METABOLIC [id number] 14:11:00 Test Item Value Reference Range Interpretation [...] S NOT APPLICABLE FOR DIALYSIS PATIEN TS. [id number] 14:08:00 Test Item Value Reference Range Interpretation Comments PHOSPHORUS (BEAKER) (test code = 7.2 mg/dL 2.3-4.7 H 604) [id number] 14:08:00 Test Item Value Reference Range Interpretation Comments MAGNESIUM (BEAKER) (test code = 2.6 mg/dL 1.6-2.6 627) POCT-GLUCOSE [id number] 12:49:00 Test Item Value Reference Range Interpretation Comments POC-GLUCOSE METER 224 mg/dL 70-110 H TESTED AT [facility] 67 (ROBERT) (test code = JULIANO Osborne [facility] 1538) [address] POCT-GLUCOSE [id number] 12:49:00 Test Item Value Reference Range Interpretation Comments POC-GLUCOSE METER 248 mg/dL 70-110 H TESTED AT [place] [address] (ROBERT) (test code = JULIANO Osborne [facility] 1538) [address] RAD, CHEST, 1 VIEW, NON [id number] 12:32:00Reason for exam:->re-intubationShould this be performed at [...] pneumothorax is grossly unchanged. Signed: Magdalena White MDRep[facility] Verified Date/Time: 05/21/2017 12:32:08 Reading Location: [facility] Radiology Reading Room POTASSIUM-STAT [id number] 12:28:00 Test Item Value Reference Range Interpretation Comments POTASSIUM (BEAKER) (test code = 5.5 meq/L 3.6-5.5 379) BLOOD GAS, [id number] 12:28:00 Test Item Value Reference Range Interpretation [...] code = 1819) 100.0 % BLOOD GAS, [id number] 10:53:00 Test Item Value Reference Range Interpretation [...] 36.0 % RAD, CHEST, 1 VIEW, NON [id number] 08:46:00while patient is intubated or has chest [...] MDReport Verified Date/Time: 05/21/2017 08:46:27 Reading Location: [facility] Radiology Reading Room BLOOD GAS, [id number] 05:41:00 Test Item Value Reference Range Interpretation [...] (BEAKER) (test code = 1819) 40 CALCIUM, [id number] 04:35:00 Test Item Value Reference Range Interpretation Comments CALCIUM IONIZED (BEAKER) (test 1.13 mmol/L 1.12-1.27 code = 698) PH, BLOOD (BEAKER) (test code = 7.32 1810) BLOOD GAS, [id number] 04:28:00 Test Item Value Reference Range Interpretation [...] (BEAKER) (test code = 1819) 40.0 % [id number] 04:20:00 Test Item Value Reference Range Interpretation Comments PHOSPHORUS (BEAKER) (test code = 6.2 mg/dL 2.3-4.7 H 604) [id number] 04:20:00 Test Item Value Reference Range Interpretation Comments MAGNESIUM (BEAKER) (test code = 2.4 mg/dL 1.6-2.6 627) HEPATIC FUNCTION [id number] 04:20:00 Test Item Value Reference Range Interpretation [...] = 11 U/L 6-55 347) BASIC METABOLIC [id number] 04:20:00 Test Item Value Reference Range Interpretation [...] APPLICABLE FOR DIALYSIS PATIEN TS. OXYGEN SATURATION, [id number] 04:18:00 Test Item Value Reference Range Interpretation Comments O2 SATURATION (MEASURED) (BEAKER) 68.0 % (test code = 1455) LACTIC ACID, ARTERIAL, WHOLE [id number] 04:12:00 Test Item Value Reference Range Interpretation Comments LACTATE BLOOD ARTERIAL (2) 1.0 mmol/L 0.5-2.2 (BEAKER) (test code = 2874) Effective 08/02/2015: Units/Reference Range ChangeNew: 0.5-2.2 mmol/L Previous: 5-20 mg/dLCBC W/PLT COUNT & AUTO [id number] 04:00:00 Test Item Value Reference Range Interpretation [...] (BEAKER) (test code = 2801) BLOOD GAS, [id number] 00:06:00 Test Item Value Reference Range Interpretation [...] (BEAKER) (test code = 1819) 40.0 % [id number] 18:55:00 Test Item Value Reference Range Interpretation Comments PHOSPHORUS (BEAKER) (test code = 4.8 mg/dL 2.3-4.7 H 604) [id number] 18:55:00 Test Item Value Reference Range Interpretation Comments MAGNESIUM (BEAKER) (test code = 2.3 mg/dL 1.6-2.6 627) BASIC METABOLIC [id number] 18:55:00 Test Item Value Reference Range Interpretation [...] DIALYSIS PATIEN TS. LACTIC ACID, ARTERIAL, WHOLE [id number] 18:53:00 Test Item Value Reference Range Interpretation Comments LACTATE BLOOD 0.9 mmol/L 0.5-2.2 Specimen sligh tly ARTERIAL (2) (BEAKER) hemoly zed (test code = 2874) Effective 08/02/2015: Units/Reference Range ChangeNew: 0.5-2.2 mmol/L Previous: 5-20 mg/dLRAD, CHEST, 1 VIEW, NON [id number] 18:44:00Reason for exam:- >postop cardiacShould this be [...] MDReport Verified Date/Time: 05/20/2017 18:44:30 Reading Location: [facility] [id number] Consult Reading Room Electronically signed by: LISA LI M.D. on05/20/2017 06:44 PMCBC W/PLT COUNT & AUTO [id number] 18:38:00 Test Item Value Reference Range Interpretation [...] (BEAKER) (test code = 2801) OXYGEN SATURATION, [id number] 18:36:00 Test Item Value Reference Range Interpretation Comments O2 SATURATION (MEASURED) (BEAKER) 72.5 % (test code = 1455) From distal port of IJ central venous catheterSODIUM NA-STAT [id number] 18:30:00 Test Item Value Reference Range Interpretation Comments SODIUM (BEAKER) (test code = 381) 132 meq/L 135-148 L HGB/HCT (H&H) - STAT [id number] 18:30:00 Test Item Value Reference Range Interpretation Comments HEMOGLOBIN (BEAKER) (test code = 9.4 g/dL 12.0-15.0 L 410) HEMATOCRIT (BEAKER) (test code = 28.0 % 36.0-45.0 L 411) GLUCOSE-STAT [id number] 18:30:00 Test Item Value Reference Range Interpretation Comments GLUCOSE RANDOM (BEAKER) (test code 159 mg/dL 70-110 H = 652) BLOOD GAS, [id number] 18:30:00 Test Item Value Reference Range Interpretation [...] (test code = 1819) 60.0 % CALCIUM, [id number] 18:30:00 Test Item Value Reference Range Interpretation Comments CALCIUM IONIZED (BEAKER) (test 0.94 mmol/L 1.12-1.27 L code = 698) PH, BLOOD (BEAKER) (test code = 7.34 1810) POTASSIUM-STAT [id number] 18:28:00 Test Item Value Reference Range Interpretation [...] (test 0.0 % 0.0-5.0 code = 1414) [id number] 17:53:00 Test Item Value Reference Range Interpretation Comments ACTIVATED CLOTTING TIME 103 sec TEST ED AT [place] [address] [facility] (test code = [place] 441) [address] [id number] 17:53:00 Test Item Value Reference Range Interpretation Comments ACTIVATED CLOTTING TIME 466 sec TEST ED AT [place] [address] (BEAKER) (test code = [place]IANO [place] 441) [address] [id number] 17:53:00 Test Item Value Reference Range Interpretation Comments ACTIVATED CLOTTING TIME 543 sec TEST ED AT [place] [address] ([facility]) (test code = [place]IANO [place] 441) [address] [id number] 17:53:00 Test Item Value Reference Range Interpretation Comments ACTIVATED CLOTTING TIME 549 sec TEST ED AT [place] [address] ([facility]) (test code = [place]O [place] 441) [address] [id number] 17:53:00 Test Item Value Reference Range Interpretation Comments ACTIVATED CLOTTING TIME 632 sec TEST ED AT [place] [address] ([facility]) (test code = [place]IANO [place] 441) [address] [id number] 17:53:00 Test Item Value Reference Range Interpretation Comments ACTIVATED CLOTTING TIME 494 sec TEST ED AT [place] [address] ([facility]) (test code = [place] 441) [address] [id number] 17:53:00 Test Item Value Reference Range Interpretation Comments ACTIVATED CLOTTING TIME 587 sec TEST ED AT [place] [address] ([facility]) (test code = [place]O [place] 441) [address] [id number] 17:53:00 Test Item Value Reference Range Interpretation Comments ACTIVATED CLOTTING TIME 626 sec TEST ED AT [place] [address] ([facility]) (test code = [place]O [place] 441) [address] [id number] 17:52:00 Test Item Value Reference Range Interpretation Comments ACTIVATED CLOTTING TIME 808 sec TEST ED AT [place] [address] ([facility]) (test code = [place]IANO [place] 441) [address] [id number] 16:54:00 Test Item Value Reference Range Interpretation Comments PARTIAL THROMBOPLASTIN TIME 40.2 seconds 22.5-36.0 H ([facility]) (test code = 760) [id number] 16:53:00 Test Item Value Reference Range Interpretation Comments FIBRINOGEN LEVEL ([facility]) (test 306 mg/dl 225-434 code = 658) PROTHROMBIN [id number] 16:50:00 Test Item Value Reference Range Interpretation Comments PROTIME ([facility]) (test code = 19.6 seconds 11.7-14.7 H 759) INR ([facility]) (test code = 370) 1.7 <=5.9 RECOMMENDED COUMADIN/WARFARIN INR THERAPY RANGESSTANDARD DOSE: 2.0 - 3.0 Includes: PROPHYLAXIS forvenous thrombosis, systemic embolization; TREATMENT for venous thrombosis and/or pulmonary embolus.HIGH RISK: Target INR is 2.5-3.5 for patients with mechanical heart valves.PLATELET [id number] 16:45:00 Test Item Value Reference Range Interpretation Comments PLATELET COUNT (BEAKER) (test 136 K/CU MM 150-450 L code = 756) POTASSIUM-STAT [id number] 16:15:00 Test Item Value Reference Range Interpretation Comments POTASSIUM (BEAKER) (test code = 4.9 meq/L 3.6-5.5 379) BLOOD GAS, [id number] 16:15:00 Test Item Value Reference Range Interpretation [...] code = 1819) 100.0 % SODIUM NA-STAT [id number] 16:15:00 Test Item Value Reference Range Interpretation Comments SODIUM (BEAKER) (test code = 381) 131 meq/L 135-148 L GLUCOSE-STAT [id number] 16:15:00 Test Item Value Reference Range Interpretation Comments GLUCOSE RANDOM (BEAKER) (test code 198 mg/dL 70-110 H = 652) HGB/HCT (H&H) - STAT [id number] 16:15:00 Test Item Value Reference Range Interpretation Comments HEMOGLOBIN (BEAKER) (test code = 7.5 g/dL 12.0-15.0 L 410) HEMATOCRIT (BEAKER) (test code = 22.0 % 36.0-45.0 L 411) CALCIUM, [id number] 16:14:00 Test Item Value Reference Range Interpretation Comments CALCIUM IONIZED (BEAKER) (test 0.91 mmol/L 1.12-1.27 L code = 698) PH, BLOOD (BEAKER) (test code = 7.39 1810) BLOOD GAS, [id number] 15:39:00 Test Item Value Reference Range Interpretation [...] code = 1819) 70.0 % SODIUM NA-STAT [id number] 15:39:00 Test Item Value Reference Range Interpretation Comments SODIUM (BEAKER) (test code = 381) 131 meq/L 135-148 L GLUCOSE-STAT [id number] 15:39:00 Test Item Value Reference Range Interpretation Comments GLUCOSE RANDOM (BEAKER) (test code 186 mg/dL 70-110 H = 652) HGB/HCT (H&H) - STAT [id number] 15:39:00 Test Item Value Reference Range Interpretation Comments HEMOGLOBIN (BEAKER) (test code = 7.5 g/dL 12.0-15.0 L 410) HEMATOCRIT (BEAKER) (test code = 22.0 % 36.0-45.0 L 411) POTASSIUM-STAT [id number] 15:38:00 Test Item Value Reference Range Interpretation Comments POTASSIUM (BEAKER) (test code = 5.3 meq/L 3.6-5.5 379) BLOOD GAS, [id number] 15:24:00 Test Item Value Reference Range Interpretation [...] code = 1819) 70.0 % SODIUM NA-STAT [id number] 15:24:00 Test Item Value Reference Range Interpretation Comments SODIUM (BEAKER) (test code = 381) 130 meq/L 135-148 L GLUCOSE-STAT [id number] 15:24:00 Test Item Value Reference Range Interpretation Comments GLUCOSE RANDOM (BEAKER) (test code 189 mg/dL 70-110 H = 652) HGB/HCT (H&H) - STAT [id number] 15:24:00 Test Item Value Reference Range Interpretation Comments HEMOGLOBIN (BEAKER) (test code = 6.7 g/dL 12.0-15.0 L 410) HEMATOCRIT (BEAKER) (test code = 20.0 % 36.0-45.0 L 411) POTASSIUM-STAT [id number] 15:23:00 Test Item Value Reference Range Interpretation Comments POTASSIUM (BEAKER) (test code = 5.4 meq/L 3.6-5.5 379) BLOOD GAS, [id number] 15:07:00 Test Item Value Reference Range Interpretation [...] code = 1819) 70.0 % SODIUM NA-STAT [id number] 15:07:00 Test Item Value Reference Range Interpretation Comments SODIUM (BEAKER) (test code = 381) 129 meq/L 135-148 L GLUCOSE-STAT [id number] 15:07:00 Test Item Value Reference Range Interpretation Comments GLUCOSE RANDOM (BEAKER) (test code 172 mg/dL 70-110 H = 652) HGB/HCT (H&H) - STAT [id number] 15:07:00 Test Item Value Reference Range Interpretation Comments HEMOGLOBIN (BEAKER) (test code = 7.1 g/dL 12.0-15.0 L 410) HEMATOCRIT (BEAKER) (test code = 21.0 % 36.0-45.0 L 411) POTASSIUM-STAT [id number] 15:04:00 Test Item Value Reference Range Interpretation Comments POTASSIUM (BEAKER) (test code = 5.0 meq/L 3.6-5.5 379) BLOOD GAS, [id number] 14:21:00 Test Item Value Reference Range Interpretation [...] code = 1819) 70.0 % SODIUM NA-STAT [id number] 14:21:00 Test Item Value Reference Range Interpretation Comments SODIUM (BEAKER) (test code = 381) 133 meq/L 135-148 L GLUCOSE-STAT [id number] 14:21:00 Test Item Value Reference Range Interpretation Comments GLUCOSE RANDOM (BEAKER) (test code 160 mg/dL 70-110 H = 652) HGB/HCT (H&H) - STAT [id number] 14:21:00 Test Item Value Reference Range Interpretation Comments HEMOGLOBIN (BEAKER) (test code = 7.5 g/dL 12.0-15.0 L 410) HEMATOCRIT (BEAKER) (test code = 22.0 % 36.0-45.0 L 411) POTASSIUM-STAT [id number] 14:20:00 Test Item Value Reference Range Interpretation Comments POTASSIUM (BEAKER) (test code = 4.7 meq/L 3.6-5.5 379) BLOOD GAS, [id number] 13:58:00 Test Item Value Reference Range Interpretation [...] code = 1819) 80.0 % SODIUM NA-STAT [id number] 13:58:00 Test Item Value Reference Range Interpretation Comments SODIUM (BEAKER) (test code = 381) 132 meq/L 135-148 L GLUCOSE-STAT [id number] 13:58:00 Test Item Value Reference Range Interpretation Comments GLUCOSE RANDOM (BEAKER) (test code 166 mg/dL 70-110 H = 652) HGB/HCT (H&H) - STAT [id number] 13:58:00 Test Item Value Reference Range Interpretation Comments HEMOGLOBIN (BEAKER) (test code = 7.5 g/dL 12.0-15.0 L 410) HEMATOCRIT (BEAKER) (test code = 22.0 % 36.0-45.0 L 411) POTASSIUM-STAT [id number] 13:57:00 Test Item Value Reference Range Interpretation Comments POTASSIUM (BEAKER) (test code = 4.7 meq/L 3.6-5.5 379) BLOOD GAS, [id number] 13:35:00 Test Item Value Reference Range Interpretation [...] (test code = 1819) 80.0 % GLUCOSE-STAT [id number] 13:35:00 Test Item Value Reference Range Interpretation Comments GLUCOSE RANDOM (BEAKER) (test code 130 mg/dL 70-110 H = 652) HGB/HCT (H&H) - STAT [id number] 13:35:00 Test Item Value Reference Range Interpretation Comments HEMOGLOBIN (BEAKER) (test code = 6.7 g/dL 12.0-15.0 L 410) HEMATOCRIT (BEAKER) (test code = 20.0 % 36.0-45.0 L 411) SODIUM NA-STAT [id number] 13:35:00 Test Item Value Reference Range Interpretation Comments SODIUM (BEAKER) (test code = 381) 133 meq/L 135-148 L POTASSIUM-STAT [id number] 13:34:00 Test Item Value Reference Range Interpretation Comments POTASSIUM (BEAKER) (test code = 4.2 meq/L 3.6-5.5 379) BLOOD GAS, [id number] 13:16:00 Test Item Value Reference Range Interpretation [...] code = 1819) 80.0 % SODIUM NA-STAT [id number] 13:16:00 Test Item Value Reference Range Interpretation Comments SODIUM (BEAKER) (test code = 381) 133 meq/L 135-148 L HGB/HCT (H&H) - STAT [id number] 13:16:00 Test Item Value Reference Range Interpretation Comments HEMOGLOBIN (BEAKER) (test code = 6.3 g/dL 12.0-15.0 L 410) HEMATOCRIT (BEAKER) (test code = 19.0 % 36.0-45.0 L 411) CALCIUM, [id number] 13:15:00 Test Item Value Reference Range Interpretation Comments CALCIUM IONIZED (BEAKER) (test 0.98 mmol/L 1.12-1.27 L code = 698) PH, BLOOD (BEAKER) (test code = 7.34 1810) BLOOD GAS, [id number] 13:15:00 Test Item Value Reference Range Interpretation [...] (test code = 1819) 80.0 % GLUCOSE-STAT [id number] 13:14:00 Test Item Value Reference Range Interpretation Comments GLUCOSE RANDOM (BEAKER) (test code = 92 mg/dL 70-110 652) POTASSIUM-STAT [id number] 13:14:00 Test Item Value Reference Range Interpretation Comments POTASSIUM (BEAKER) (test code = 3.9 meq/L 3.6-5.5 379) BLOOD GAS, [id number] 10:54:00 Test Item Value Reference Range Interpretation [...] 1819) 100.0 % HGB/HCT (H&H) - STAT [id number] 10:54:00 Test Item Value Reference Range Interpretation Comments HEMOGLOBIN (BEAKER) (test code = 9.3 g/dL 12.0-15.0 L 410) HEMATOCRIT (BEAKER) (test code = 27.0 % 36.0-45.0 L 411) SODIUM NA-STAT [id number] 10:54:00 Test Item Value Reference Range Interpretation Comments SODIUM (BEAKER) (test code = 381) 132 meq/L 135-148 L GLUCOSE-STAT [id number] 10:52:00 Test Item Value Reference Range Interpretation Comments GLUCOSE RANDOM (BEAKER) (test code = 94 mg/dL 70-110 652) POTASSIUM-STAT [id number] 10:52:00 Test Item Value Reference Range Interpretation Comments POTASSIUM (BEAKER) (test code = 4.0 meq/L 3.6-5.5 379) HEMOGLOBIN [id number] 09:50:00 Test Item Value Reference Range Interpretation Comments HEMOGLOBIN A1C (BEAKER) (test code = 10.6 % 4.3-6.1 H 368) PLATELET AGGREGATION: FUNCTION [id number] 08:27:00 Test Item Value Reference Range Interpretation Comments WEAK ADP 63 % 60-91 RESULT(BEAKER) (test code = 2135) PLATELET FUNCTION 60-100% indicates SCREEN INTERP (BEAKER) normal platelet (test code = 2173) function [id number] Toshia Post MD ([facility]) (test code = (electronic signature) 2636) PLATELET COUNT AGG 198 K/CU MM 150-450 (BEAKER) (test code = 6416) for patients on clopidogrel in past two weeksPOCT-GLUCOSE [id number] 08:11:00 Test Item Value Reference Range Interpretation Comments POC-GLUCOSE METER 116 mg/dL 70-110 H TESTED AT [facility] 6720 ([facility]) (test code = MATTHIASAMANDA Dylon [place] 1538) [address] [id number] 07:10:00 Test Item Value Reference Range Interpretation Comments PHOSPHORUS (BEAKER) (test code = 4.5 mg/dL 2.3-4.7 604) [id number] 07:10:00 Test Item Value Reference Range Interpretation Comments MAGNESIUM (BEAKER) (test code = 2.1 mg/dL 1.6-2.6 627) BASIC METABOLIC [id number] 07:10:00 Test Item Value Reference Range Interpretation [...] = 700) CBC W/PLT COUNT & AUTO [id number] 06:46:00 Test Item Value Reference Range Interpretation [...] PERCENT (BEAKER) (test code = 2801) CALCIUM, [id number] 06:40:00 Test Item Value Reference Range Interpretation Comments CALCIUM IONIZED (BEAKER) (test 1.06 mmol/L 1.12-1.27 L code = 698) PH, BLOOD (BEAKER) (test code = 7.39 1810) POCT-GLUCOSE [id number] 23:22:00 Test Item Value Reference Range Interpretation Comments POC-GLUCOSE METER 165 mg/dL 70-110 H TESTED AT [facility] 6720 ([facility]) (test code = [place] 1538) [address] URINE PROTEIN ELECTROPHORESIS, [id number] 18:02:00 Test Item Value Reference Range Interpretation Comments PROTEIN, URINE 305 mg/dL 0-14 H (BEAKER) (test code = 1569) ALBUMIN URINE ELP 70.9 % (BEAKER) (test code = 1018) GAMMA GLOBULIN URINE 29.1 % (BEAKER) (test code = 1015) UPEP, [id number] ([facility]) No monoclonal bands (test code = 2604) detected. [id number] Rocio Galindo MD ([facility]) (test code = (electronic signature) 0853) PROTEIN ELECTROPHORESIS, [id number] 17:57:00 Test Item Value Reference Range Interpretation [...] all globulin fractions. No monoclonal bands detected. [id number] Rocio Galindo MD (BEAKER) (test code = (electronic signature) 2616) PROTEIN TOTAL SERUM, 5.5 gm/dL 6.0-8.3 L SPEP (BEAKER) (test code = 9880) POCT-GLUCOSE [id number] 17:15:00 Test Item Value Reference Range Interpretation Comments POC-GLUCOSE METER 209 mg/dL 70-110 H TESTED AT [facility] 6720 (BEAKER) (test code = JULIANO Osborne [facility] 1538) [address] BLOOD GAS, [id number] 15:54:00 Test Item Value Reference Range Interpretation [...] 36.0 % RAD, CHEST, 1 VIEW, NON [id number] 14:07:00Reason for exam:->SOB, hypoxemiaShould this be performed [...] edema. Signed: Eder Cespedes MDReport Verified Date/Time: 05/19/2017 14:07:07 Reading Location:[id number] [id number] Consult Reading Room POCT-GLUCOSE [id number] 11:26:00 Test Item Value Reference Range Interpretation Comments POC-GLUCOSE METER 262 mg/dL 70-110 H TESTED AT [facility] 6720 (BEAKER) ([facility] [address] POCT-GLUCOSE [id number] 07:37:00 Test Item Value Reference Range Interpretation Comments POC-GLUCOSE METER 170 mg/dL 70-110 H TESTED AT [facility] 6720 (BEAKER) (test code = [facility] 1538) [address] CALCIUM, [id number] 06:06:00 Test Item Value Reference Range Interpretation Comments CALCIUM IONIZED (BEAKER) (test 1.05 mmol/L 1.12-1.27 L code = 698) PH, BLOOD (BEAKER) (test code = 7.41 1810) [id number] 05:38:00 Test Item Value Reference Range Interpretation Comments PHOSPHORUS (BEAKER) (test code = 3.9 mg/dL 2.3-4.7 604) [id number] 05:38:00 Test Item Value Reference Range Interpretation Comments MAGNESIUM (BEAKER) (test code = 2.2 mg/dL 1.6-2.6 627) BASIC METABOLIC [id number] 05:38:00 Test Item Value Reference Range Interpretation [...] PATIEN TS. CBC W/PLT COUNT & AUTO [id number] 05:09:00 Test Item Value Reference Range Interpretation [...] PERCENT (BEAKER) (test code = 2801) POCT-GLUCOSE [id number] 22:08:00 Test Item Value Reference Range Interpretation Comments POC-GLUCOSE METER 263 mg/dL 70-110 H [facility] (test code = [facility] 1538) [address] POCT-GLUCOSE [id number] 17:20:00 Test Item Value Reference Range Interpretation Comments POC-GLUCOSE METER 233 mg/dL 70-110 H TESTED AT [place] [address] [facility] (test code = [facility] 1538) [address] POCT-GLUCOSE [id number] 08:28:00 Test Item Value Reference Range Interpretation Comments POC-GLUCOSE METER 154 mg/dL 70-110 H TESTED AT [place] [address] [facility] (test code = [facility] 1538) [address] BASIC METABOLIC [id number] 06:41:00 Test Item Value Reference Range Interpretation [...] S NOT APPLICABLE FOR DIALYSIS PATIEN TS. [id number] 06:35:00 Test Item Value Reference Range Interpretation Comments PHOSPHORUS (BEAKER) (test code = 4.1 mg/dL 2.3-4.7 604) [id number] 06:35:00 Test Item Value Reference Range Interpretation Comments MAGNESIUM (BEAKER) (test code = 2.1 mg/dL 1.6-2.6 627) CALCIUM, [id number] 06:22:00 Test Item Value Reference Range Interpretation Comments CALCIUM IONIZED (BEAKER) (test 1.10 mmol/L 1.12-1.27 L code = 698) PH, BLOOD (BEAKER) (test code = 7.38 1810) CBC W/PLT COUNT & AUTO [id number] 06:04:00 Test Item Value Reference Range Interpretation [...] PERCENT (BEAKER) (test code = 2801) POCT-GLUCOSE [id number] 03:44:00 Test Item Value Reference Range Interpretation Comments POC-GLUCOSE METER 220 mg/dL 70-110 H TESTED AT [facility] 67 [facility] ([facility] 1538) [address] POCT-GLUCOSE [id number] 18:27:00 Test Item Value Reference Range Interpretation Comments POC-GLUCOSE METER 256 mg/dL 70-110 H TESTED AT [facility] 6720 ([facility] (test code = [facility] Dylon [facility] 1538) [address] POCT-GLUCOSE [id number] 15:45:00 Test Item Value Reference Range Interpretation Comments POC-GLUCOSE METER 278 mg/dL 70-110 H TESTED AT [facility] 6720 ([facility] (test code = [facility] Dylon [facility] 1538) [address] POCT-GLUCOSE [id number] 13:22:00 Test Item Value Reference Range Interpretation Comments POC-GLUCOSE METER 278 mg/dL 70-110 H TESTED AT [facility] 6720 ([facility] (test code = [facility] Dylon [facility] 1538) [address] PLATELET AGGREGATION: FUNCTION [id number] 13:18:00 Test Item Value Reference Range Interpretation Comments WEAK ADP 66 % 60-91 RESULT(BEAKER) (test code = 2135) PLATELET FUNCTION 60-100% indicates SCREEN INTERP (BEAKER) normal platelet (test code = 2173) function [id number]-2302 Rigoberto Duenas MD (BEAKER) (test code = (electronic signature) 2714) PLATELET COUNT AGG 204 K/CU MM 150-450 (BEAKER) (test code = 2656) POCT-GLUCOSE [id number] 08:27:00 Test Item Value Reference Range Interpretation Comments POC-GLUCOSE METER 189 mg/dL 70-110 H TESTED AT [facility] 6720 (BEAKER) (test code = [place] 1538) [address] CALCIUM, [id number] 06:12:00 Test Item Value Reference Range Interpretation Comments CALCIUM IONIZED (BEAKER) (test 1.07 mmol/L 1.12-1.27 L code = 698) PH, BLOOD (BEAKER) (test code = 7.36 1810) [id number] 05:43:00 Test Item Value Reference Range Interpretation Comments PHOSPHORUS (BEAKER) (test code = 3.6 mg/dL 2.3-4.7 604) [id number] 05:43:00 Test Item Value Reference Range Interpretation Comments MAGNESIUM (BEAKER) (test code = 2.1 mg/dL 1.6-2.6 627) BASIC METABOLIC [id number] 05:43:00 Test Item Value Reference Range Interpretation [...] PATIEN TS. CBC W/PLT COUNT & AUTO [id number] 05:05:00 Test Item Value Reference Range Interpretation [...] EOSINOPHILS ABSOLUTE COUNT 0.27 K/ L 0.04-0.36 ([facility]) (test code = 416) BASOPHILS ABSOLUTE COUNT ([facility]) 0.06 K/ L 0.01-0.08 (test code = 417) IMMATURE GRANULOCYTES-RELATIVE 0 % 0-1 PERCENT ([facility]) (test code = 2801) POCT-GLUCOSE [id number] 21:32:00 Test Item Value Reference Range Interpretation Comments POC-GLUCOSE METER 176 mg/dL 70-110 H TESTED AT [place] [address] ([facility]) (test code = [facility] 1538) [address] POCT-GLUCOSE [id number] 20:27:00 Test Item Value Reference Range Interpretation Comments POC-GLUCOSE METER 161 mg/dL 70-110 H TESTED AT [place] [address] ([facility]) (test code = [facility] 1538) [address] POCT-GLUCOSE [id number] 18:23:00 Test Item Value Reference Range Interpretation Comments POC-GLUCOSE METER 185 mg/dL 70-110 H TESTED AT [place] [address] ([facility]) (test code = [facility] 1538) [address] POCT-GLUCOSE [id number] 13:26:00 Test Item Value Reference Range Interpretation Comments POC-GLUCOSE METER 282 mg/dL 70-110 H TESTED AT [place] [address] ([facility]) (test code = [facility] 1538) 24993 URINE [id number] 10:12:00 Test Item Value Reference Range Interpretation Comments CULTURE ([facility]) (test >100,000 col/mL skin code = 1095) todd POCT-GLUCOSE [id number] 09:01:00 Test Item Value Reference Range Interpretation Comments POC-GLUCOSE METER 268 mg/dL 70-110 H TESTED AT [place] [address] ([facility]) (test code = [facility] 1538) [address] CALCIUM, [id number] 05:39:00 Test Item Value Reference Range Interpretation Comments CALCIUM IONIZED ([facility]) (test 0.84 mmol/L 1.12-1.27 L code = 698) PH, BLOOD ([facility]) (test code = 7.35 1810) BASIC METABOLIC [id number] 05:07:00 Test Item Value Reference Range Interpretation [...] S NOT APPLICABLE FOR DIALYSIS PATIEN TS. [id number] 05:06:00 Test Item Value Reference Range Interpretation Comments PHOSPHORUS (BEAKER) (test code = 3.2 mg/dL 2.3-4.7 604) [id number] 05:06:00 Test Item Value Reference Range Interpretation Comments MAGNESIUM (BEAKER) (test code = 2.3 mg/dL 1.6-2.6 627) CBC W/PLT COUNT & AUTO [id number] 04:42:00 Test Item Value Reference Range Interpretation [...] = 2801) RHEUMATOID FACTOR AB, REFLEX TO [id number] 01:52:00 Test Item Value Reference Range Interpretation Comments RHEUMATOID FACTOR (BEAKER) (test Negative code = 573) POCT-GLUCOSE [id number] 21:57:00 Test Item Value Reference Range Interpretation Comments POC-GLUCOSE METER 105 mg/dL 70-110 TESTED AT [facility] 6720 ([facility]) (test code = [place] 1538) [address] POCT-GLUCOSE [id number] 18:11:00 Test Item Value Reference Range Interpretation Comments POC-GLUCOSE METER 312 mg/dL 70-110 H Notified R Sonya PIERRE/TESTED (ROBERT) (test code = AT [facility] 6720 [address] 1538) [facility] 7703 0 PET, CARDIAC PERFUSION MULTIPLE STUDIES, REST AND [id number] 16:28:00 Reason for exam:->pvcs, known cadFINAL REPORT PROCEDURE: Rest/Stress MYOCARDIAL PERFUSION PET with regadenoson\XA9\ CPT CODE: 70758 INDICATION: Defined extent and severity of known [...] is 23%. LVEF at stress is 36%. [employer] CT images revealed a right pleural effusion [...] pleural and pericardial effusions. 7. No previous [facility] study for comparison. NONINVASIVE RISK STRATIFICATION: The above findings are considered high risk (>3% annual mortality rate) based on the following criteria: - Severe resting left ventricular dysfunction (LVEF 35%)- Stress-induced large perfusion defect (particularly if anterior)(JACC. 2012;59(9):857-81.) Signed: Last Lopez Verified Date/Time: 05/15/2017 16:28:12 Reading Location: [address] ReadingRoom RAD, CHEST, 1 VIEW, NON [id number] 15:56:00Reason for exam:->SOBShould this be performed at the bedside?->YesFINAL REPORT Comparison: 05/14/2017 TECHNIQUE: Single view of the chest FINDINGS: There is a small right pleural effusion with nonspecific airspace disease. This is unchanged. Left lung is grossly clear. Cardiac silhouette is enlarged. IMPRESSION: 1. No acute cardiopulmonary disease. Signed: Sixto Monk MDReport Verified Date/Time: 05/15/2017 15:56:39 Reading Location: [facility] iology Reading Room POCT-GLUCOSE [id number] 12:54:00 Test Item Value Reference Range Interpretation Comments POC-GLUCOSE METER 308 mg/dL 70-110 H Notified Dylon Hassan MD/NATHAN (ROBERT) (test code = AT [facility] 67[address] 1538) [facility] 7703 0 U/S, RENAL WITH [id number] 11:04:00Reason for exam:->arturo, htnShould this be performed [...] MDReport Verified Date/Time: 05/15/2017 11:04:01 Reading Location: [address] Ultrasound Reading Room ANA TITER AND [id number] 10:57:00 Test Item Value Reference Range Interpretation Comments ROGER TITER (BEAKER) (test code = :160 1541) ROGER PATTERN (BEAKER) (test code = Speckled 1781) ANTI-NUCLEAR ANTIBODY (ROGER)2017-05-15 10:56:00 Test Item Value Reference Range Interpretation Comments ANTI-NUCLEAR ANTIBODY (ROGER) (BEAKER) Positive Negative A (test code = 418) CALCIUM, [id number] 06:00:00 Test Item Value Reference Range Interpretation Comments CALCIUM IONIZED (BEAKER) (test 1.07 mmol/L 1.12-1.27 L code = 698) PH, BLOOD (BEAKER) (test code = 7.28 1810) HEPATITIS PANEL, [id number] 05:01:00 Test Item Value Reference Range Interpretation Comments HEPATITIS A IGM ANTIBODY (BEAKER) Nonreactive Nonreactive (test code = 498) HEPATITIS B CORE IGM ANTIBODY Nonreactive Nonreactive (BEAKER) (test code = 645) HEPATITIS C ANTIBODY (BEAKER) Nonreactive Nonreactive (test code = 367) HEPATITIS B SURFACE ANTIGEN (2) Nonreactive Nonreactive (BEAKER) (test code = 2585) BASIC METABOLIC [id number] 04:48:00 Test Item Value Reference Range Interpretation [...] NOT APPLICABLE FOR DIALYSIS PATIEN TS. URIC [id number] 04:41:00 Test Item Value Reference Range Interpretation Comments URIC ACID (BEAKER) (test code = 10.3 mg/dL 2.6-7.2 H 773) [id number] 04:41:00 Test Item Value Reference Range Interpretation Comments MAGNESIUM (BEAKER) (test code = 2.0 mg/dL 1.6-2.6 627) [id number] 04:41:00 Test Item Value Reference Range Interpretation Comments PHOSPHORUS (BEAKER) (test code = 4.2 mg/dL 2.3-4.7 604) COMPLEMENT COMPONENT [id number] 04:38:00 Test Item Value Reference Range Interpretation Comments C4 COMPLEMENT (BEAKER) (test code = 28 mg/dL 15-57 394) COMPLEMENT COMPONENT [id number] 04:38:00 Test Item Value Reference Range Interpretation Comments C3 COMPLEMENT (BEAKER) (test code = 103 mg/dL 82-193 393) CBC W/PLT COUNT & AUTO [id number] 04:22:00 Test Item Value Reference Range Interpretation [...] PERCENT (BEAKER) (test code = 2801) POCT-GLUCOSE [id number] 21:46:00 Test Item Value Reference Range Interpretation Comments POC-GLUCOSE METER 173 mg/dL 70-110 H TESTED AT [place] [address] ([facility]) (test code = [facility] 1538) [address] POCT-GLUCOSE [id number] 21:46:00 Test Item Value Reference Range Interpretation Comments POC-GLUCOSE METER 154 mg/dL 70-110 H TESTED AT [place] [address] ([facility]) (test code = [facility] 1538) [address] POCT-GLUCOSE [id number] 18:17:00 Test Item Value Reference Range Interpretation Comments POC-GLUCOSE METER 175 mg/dL 70-110 H TESTED AT [place] [address] ([facility]) (test code = [facility] 1538) [address] RAD, CHEST, 1 VIEW, NON [id number] 14:56:00Reason for exam:->SOBShould this be performed at the bedside?->YesFINAL REPORT INDICATION: SOB COMPARISON: May 13, 2017 TECHNIQUE: Chest radiograph, single view, portable technique. FINDINGS / IMPRESSION: Enlarged heart shadow, small rightpleural effusion, and pulmonary venous congestion, again demonstrated. No pneumothorax or consolidation. Osseous structures unremarkable. Signed: Satnam Jean MDReport Verified Date/Time: 05/14/2017 14:56:58 Reading Location: [facility] Reading Room POCT-GLUCOSE [id number] 12:18:00 Test Item Value Reference Range Interpretation Comments POC-GLUCOSE METER 313 mg/dL 70-110 H TESTED AT [facility] 6720 (BEAKER) (test code = [place] 1538) [address] HIV-1 ANTIGEN WITH HIV-1/2 [id number] 12:07:00 Test Item Value Reference Range Interpretation Comments HIV-1 ANTIGEN WITH HIV 1\T\2 Nonreactive Nonreactive ANTIBODY (2) (BEAKER) (test code = 2586) CALCIUM, [id number] 06:37:00 Test Item Value Reference Range Interpretation Comments CALCIUM IONIZED (BEAKER) (test 1.08 mmol/L 1.12-1.27 L code = 698) PH, BLOOD (BEAKER) (test code = 7.25 1810) BASIC METABOLIC [id number] 06:26:00 Test Item Value Reference Range Interpretation [...] 697) EGFR (BEAKER) (test 16 mL/min/1.73 ESTIMA HNIA GFR IS code = 1092) sq m NOT ACCURATE CREATININE CLEARANCE IN PREDICTING GLOMERULAR FILTRATION RATE . ESTIMATED GFR I S NOT APPLICABLE FOR DIALYSIS PATIEN TS. B-TYPE NATRIURETIC FACTOR (BNP)2017-05-14 06:26:00 Test Item Value Reference Range Interpretation Comments B-TYPE NATRIURETIC PEPTIDE (BEAKER) 474 pg/mL 0-100 H (test code = 700) [id number] 06:25:00 Test Item Value Reference Range Interpretation Comments PHOSPHORUS (BEAKER) (test code = 5.7 mg/dL 2.3-4.7 H 604) [id number] 06:25:00 Test Item Value Reference Range Interpretation Comments MAGNESIUM (BEAKER) (test code = 1.5 mg/dL 1.6-2.6 L 627) CBC W/PLT COUNT & AUTO [id number] 06:07:00 Test Item Value Reference Range Interpretation [...] PERCENT (BEAKER) (test code = 2801) POCT-GLUCOSE [id number] 22:38:00 Test Item Value Reference Range Interpretation Comments POC-GLUCOSE METER 262 mg/dL 70-110 H TESTED AT [facility] 6720 (BEAKER) (test code = [place] 1538) [address] PROTEIN, RANDOM [id number] 22:18:00 Test Item Value Reference Range Interpretation Comments PROTEIN, URINE (BEAKER) (test code 641 mg/dL 0-14 H = 1569) CREATININE, RANDOM [id number] 22:07:00 Test Item Value Reference Range Interpretation Comments CREATININE URINE (BEAKER) (test 124.9 mg/dL code = 375) Reference Range: No NormalsURINALYSIS W/ [id number] 22:03:00 Test Item Value Reference Range Interpretation [...] 1585) SOURCE(BEAKER) (test code = Urine, Voided 1386) [id number] 19:49:00 Test Item Value Reference Range Interpretation Comments SODIUM (BEAKER) (test 136 meq/L 136-145 code = 381) POTASSIUM (BEAKER) 5.1 meq/L 3.5-5.1 Specimen slightly (test code = 379) hemolyzed CHLORIDE (BEAKER) 104 meq/L 98-107 (test code = 382) CO2 (BEAKER) (test 25 meq/L 22-29 code = 355) Call if K > 5POCT-GLUCOSE [id number] 11:37:00 Test Item Value Reference Range Interpretation Comments POC-GLUCOSE METER 293 mg/dL 70-110 H TESTED AT [facility] 6720 (BEAKER) (test code = [place] 1538) [address] RAD, CHEST, 1 VIEW, NON [id number] 10:22:00Reason for exam:->SOBShould this be performed at the bedside?->YesFINAL REPORT Chest one view Discussion: There is cardiomegaly and interstitial congestion. A small right-sided effusion is noted. No pneumothorax. IMPRESSIONS: Suspected CHF. Signed: Jeannette Nava Verified Date/Time: 05/13/2017 10:22:34 Reading Location: [facility] Radiology Reading Room POCT-GLUCOSE METER 2017-05-13 08:34:00 Test Item Value Reference Range Interpretation Comments POC-GLUCOSE METER 178 mg/dL 70-110 H TESTED AT [facility] 6720 (BEAKER) (test code = [place] 1538) [address] POCT-GLUCOSE [id number] 06:53:00 Test Item Value Reference Range Interpretation Comments POC-GLUCOSE METER 167 mg/dL 70-110 H [facility] 6720 (BEAKER) (test code = [place] 1538) [address] [id number] 04:48:00 Test Item Value Reference Range Interpretation Comments BLOOD UREA NITROGEN (BEAKER) (test 36 mg/dL 7-21 H code = 354) [id number] 04:48:00 Test Item Value Reference Range Interpretation Comments SODIUM (BEAKER) (test code = 381) 139 meq/L 136-145 POTASSIUM (BEAKER) (test code = 5.2 meq/L 3.5-5.1 H 379) CHLORIDE (BEAKER) (test code = 382) 109 meq/L 98-107 H CO2 (BEAKER) (test code = 355) 23 meq/L 22-29 [id number] 04:48:00 Test Item Value Reference Range Interpretation [...] WBC 0-0 (BEAKER) (test code = 413) [id number] 23:29:00 Test Item Value Reference Range Interpretation Comments ACTIVATED CLOTTING TIME 136 sec TEST ED AT [place] [address] ([facility]) (test code = JULIANO Osborne [place] [address]) [address] [id number] 20:13:00 Test Item Value Reference Range Interpretation Comments ACTIVATED CLOTTING TIME 175 sec TEST ED AT [place] [address] ([facility]) (test code = JULIANO Osborne [place] [address]) [address] [id number] 18:36:00 Test Item Value Reference Range Interpretation Comments ACTIVATED CLOTTING TIME 202 sec TEST ED AT [place] [address] ([facility]) (test code = JULIANO Osborne [place] [address]) [address] [id number] 18:03:00 Test Item Value Reference Range Interpretation Comments ACTIVATED CLOTTING TIME 208 sec TEST ED AT [place] [address] ([facility]) (test code = JULIANO Osborne [place] [address]) [address] BASIC METABOLIC [id number] 11:57:00 Test Item Value Reference Range Interpretation [...] NOT APPLICABLE FOR DIALYSIS PATIEN TS. PROTHROMBIN [id number] 11:15:00 Test Item Value Reference Range Interpretation [...] if on CoumadinCBC W/PLT COUNT & AUTO [id number] 11:01:00 Test Item Value Reference Range Interpretation [...] PERCENT (BEAKER) (test code = 2801) POCT-GLUCOSE [id number] 12:35:00 Test Item Value Reference Range Interpretation Comments POC-GLUCOSE METER 249 mg/dL 70-110 H TESTED AT [place] [address] [facility] (test code = [facility] Dylon [facility] 1538) [address] POCT-GLUCOSE [id number] 09:10:00 Test Item Value Reference Range Interpretation Comments POC-GLUCOSE METER 155 mg/dL 70-110 H TESTED AT [place] [address] [facility] (test code = [facility] 1538) [address] BASIC METABOLIC [id number] 05:39:00 Test Item Value Reference Range Interpretation [...] S NOT APPLICABLE FOR DIALYSIS PATIEN TS. [id number] 05:27:00 Test Item Value Reference Range Interpretation Comments PHOSPHORUS (BEAKER) (test code = 5.0 mg/dL 2.3-4.7 H 604) [id number] 05:27:00 Test Item Value Reference Range Interpretation Comments MAGNESIUM (BEAKER) (test code = 1.6 mg/dL 1.6-2.6 627) POCT-GLUCOSE [id number] 05:25:00 Test Item Value Reference Range Interpretation Comments POC-GLUCOSE METER 144 mg/dL 70-110 H TESTED AT [place] [address] ([facility]) (test code = [facility] [employer] [place] 1538) [address] PROTHROMBIN [id number] 04:58:00 Test Item Value Reference Range Interpretation Comments PROTIME (BEAKER) (test code = 14.2 seconds 11.7-14.7 759) INR (BEAKER) (test code = 370) 1.1 <=5.9 RECOMMENDED COUMADIN/WARFARIN INR THERAPY RANGESSTANDARD DOSE: 2.0 - 3.0 Includes: PROPHYLAXIS forvenous thrombosis, systemic embolization; TREATMENT for venous thrombosis and/or pulmonary embolus.HIGH RISK: Target INR is 2.5-3.5 for patients with mechanical heart valves.POCT-GLUCOSE [id number] 23:55:00 Test Item Value Reference Range Interpretation Comments POC-GLUCOSE METER 86 mg/dL 70-110 TESTED AT [facility] 6720 ([facility]) (test code = [place] [address] 1538) B-TYPE NATRIURETIC FACTOR (BNP)2017-04-22 18:13:00 Test Item Value Reference Range Interpretation Comments B-TYPE NATRIURETIC PEPTIDE 1203 pg/mL 0-100 H (BEAKER) (test code = 700) POCT-GLUCOSE [id number] 17:36:00 Test Item Value Reference Range Interpretation Comments POC-GLUCOSE METER 259 mg/dL 70-110 H TESTED AT [facility] 6720 ([facility]) (test code = JULIANO Osborne [facility] 1538) [address] HEMOGLOBIN [id number] 14:24:00 Test Item Value Reference Range Interpretation Comments HEMOGLOBIN A1C (BEAKER) (test code = 10.5 % 4.3-6.1 H 368) POCT-GLUCOSE [id number] 12:34:00 Test Item Value Reference Range Interpretation Comments POC-GLUCOSE METER 207 mg/dL 70-110 H TESTED AT [facility] 6720 ([facility]) (test code = [facility] 1538) [address] [id number] 07:53:00 Test Item Value Reference Range Interpretation Comments PHOSPHORUS (BEAKER) (test code = 3.9 mg/dL 2.3-4.7 604) [id number] 07:53:00 Test Item Value Reference Range Interpretation Comments MAGNESIUM (BEAKER) (test code = 1.6 mg/dL 1.6-2.6 627) BASIC METABOLIC [id number] 07:53:00 Test Item Value Reference Range Interpretation [...] NOT APPLICABLE FOR DIALYSIS PATIEN TS. TROPONIN [id number] 07:29:00 Test Item Value Reference Range Interpretation [...] acidosis, acute neurological disease, and persistent tachyarrhythmia.PROTHROMBIN TIME/[id number] 07:01:00 Test Item Value Reference Range Interpretation Comments PROTIME (ROBERT) (test code = 13.8 seconds 11.7-14.7 759) INR (ROBERT) (test code = 370) 1.1 <=5.9 RECOMMENDED COUMADIN/WARFARIN INR THERAPY RANGESSTANDARD DOSE: 2.0 - 3.0 Includes: PROPHYLAXIS forvenous thrombosis, systemic embolization; TREATMENT for venous thrombosis and/or pulmonary embolus.HIGH RISK: Target INR is 2.5-3.5 for patients with mechanical heart valves.POCT-GLUCOSE [id number] 06:28:00 Test Item Value Reference Range Interpretation Comments POC-GLUCOSE METER 198 mg/dL 70-110 H TESTED AT [facility] 6720 (ROBERT) (test code = [place] 1538) [address] CREATINE KINASE (CK), TOTAL AND [id number] 00:49:00 Test Item Value Reference Range Interpretation Comments CREATINE KINASE TOTAL (SERVANDOAKER) 69 U/L 29-200 (test code = 380) CREATINE KINASE-MB (ROBERT) (test 4.3 ng/mL 0.0-6.6 code = 750) CREATINE KINASE-MB INDEX (ROBERT) 6.2 % (test code = 395) CK-MB Reference Range:<6.7 Normal6.7-10.0 Borderline>10.0 AbnormalTROPONIN [id number] 00:49:00 Test Item Value Reference Range Interpretation [...] acidosis, acute neurological disease, and persistent tachyarrhythmia.POCT-GLUCOSE [id number] 20:44:00 Test Item Value Reference Range Interpretation Comments POC-GLUCOSE METER 269 mg/dL 70-110 H TESTED AT [facility] 6720 (ROBERT) (test code = [place] 1538) [address]
[2019-10-16 01:18] LABS: Protime INR 1.21
[2019-10-16 01:20] LABS: Arterial Blood Carboxyhemoglob 2.8 % (0-1.5); Blood Gas Oxyhemoglobin 91.9 % (94-97); Blood O2 Saturation 95.2 % (92-98.5)
[2019-10-16 01:28] LABS: Absolute Lymphocytes (CBC) 1.7 K/uL (0.7-4.9); Basophils % 0.7 % (0-1.3); Lymphocytes % 30.9 % (15.3-44.8); MPV 7.9 fL (7.6-11.3); RBC Red Blood Cell Count 3.51 M/uL (3.86-4.86)
[2019-10-16 01:55] LABS: Albumin 2.4 g/dL (3.4-5.0); Bilirubin Direct 0.3 mg/dL (0-0.2); Bilirubin Total 0.8 mg/dL (0.2-1.0); Magnesium 1.9 mg/dL (1.8-2.4); Potassium 4.6 mmol/L (3.5-5.1); Protein, Total 6.6 g/dL (6.4-8.2)
--- NOTE | 2019-10-16 03:01 | EDPHYS ---
Physician Documentation [facility] Name: Christy Priest Age: 64 yrs Sex: Female : 1955 Arrival Date: 10/15/2019 Time: 23:24 Bed 6 Private MD: ED Physician Marco Velázquez HPI: 10/15 00:05 This 64 yrs old Female presents to ER via EMS with complaints of General pkl Weakness. 00:05 The patient has shortness of breath at rest. Onset: The symptoms/episode began/occurred pkl 2 day(s) ago, and became worse. Associated signs and symptoms: Pertinent positives: general weakness and dry heavimg. The patient has been recently been admitted at [facility], was discharged earlier this week, Diagnosed positive for Covid-19 and given blood transfusion. Historical: - Allergies: 10/14 23:47 Augmentin; wh 23:47 basil; wh 23:47 Clindamycin; wh 23:47 HYDROCODONE; wh 23:47 Morphine; wh 23:47 Nitroglycerin; wh 23:47 Tramadol HCl; wh 23:47 Trazodone; wh 23:47 Vancomycin; wh 23:47 Vicodin; wh - Home Meds: 23:47 gabapentin Oral [Active]; Hydralazine Oral [Active]; insulin [Active]; Lasix Oral wh [Active]; Plavix Oral [Active]; - PMHx: 23:47 CHF; COPD; Diabetes - IDDM; ESRD; High Cholesterol; Hypertension; triple bypass; wh uterine cancer; - Immunization history:: Adult Immunizations up to date. - Social history:: Smoking status: Patient/guardian denies using. ROS: 10/15 00:05 Eyes: Negative for injury, pain, redness, and discharge, ENT: Negative for injury, pkl pain, and discharge, Neck: Negative for injury, pain, and swelling, Cardiovascular: Negative for chest pain, palpitations, and edema. Respiratory: Positive for shortness of breath. Abdomen/GI: Negative for abdominal pain, nausea, vomiting, and diarrhea. Back: Negative for acute changes. : Negative for urinary symptoms. MS/extremity: Negative for acute changes. Skin: Negative for acute changes. Neuro: Negative for altered mental status, loss of consciousness. Exam: 00:05 Head/Face: Normocephalic, atraumatic. Eyes: Pupils equal round and reactive to light, pkl extra-ocular motions intact. Lids and lashes normal. Conjunctiva and sclera are non-icteric and not injected. Cornea within normal limits. Periorbital areas with no swelling, redness, or edema. ENT: Nares patent. No nasal discharge, no septal abnormalities noted. Tympanic membranes are normal and external auditory canals are clear. Oropharynx with no redness, swelling, or masses, exudates, or evidence of obstruction, uvula midline. Mucous membranes moist. Neck: Trachea midline, no thyromegaly or masses palpated, and no cervical lymphadenopathy. Supple, full range of motion without nuchal rigidity, or vertebral point tenderness. No Meningismus. Chest/axilla: Normal chest wall appearance and motion. Nontender with no deformity. No lesions are appreciated. 00:05 Cardiovascular: Rate: normal, Rhythm: regular. 00:05 Respiratory: the patient does not display signs of respiratory distress, Respirations: normal, Breath sounds: rales, that are mild, are scattered. 00:05 Abdomen/GI: Bowel sounds: normal, Palpation: abdomen is soft and non-tender, in all quadrants. 00:05 Back: Exam negative for acute changes. 00:05 : Exam negative for acute changes. 00:05 Musculoskeletal/extremity: Extremities: grossly normal except: noted in the both legs: swelling. 00:05 Skin: Exam negative for rash. 00:05 Neuro: Orientation: appropriate for stated age, Memory: is normal, Cranial nerves: grossly normal, Motor: is normal. Vital Signs: 10/14 23:43 BP 170 / 75; Pulse 66; Resp 18; Temp 97.5; Pulse Ox 97% ; 10/15 01:00 BP 166 / 87; Pulse 70; Resp 16; Pulse Ox 99% on R/A; 02:00 BP 174 / 92; Pulse 69; Resp 14; Pulse Ox 99% on R/A; 03:15 BP 183 / 95; Pulse 66; Resp 16; Pulse Ox 99% on R/A; 04:30 BP 162 / 85; Pulse 67; Resp 16; Pulse Ox 99% on R/A; MDM: 10/14 23:48 Patient medically screened. pk 10/15 02:28 Data reviewed: vital signs, nurses notes, lab test result(s), EKG, radiologic studies, pkl plain films. ED course: Talked to Dr. Carrasco, will see patient in ER. 02:58 ED course: Seen by Dr. Carrasco, for observation. pkl 10/15 00:04 Order name: Basic Metabolic Panel pkl 10/15 00:04 Order name: CBC with Diff pkl 10/15 00:04 Order name: LFT's pkl 10/15 00:04 Order name: Magnesium; Complete Time: 02:14 pkl 10/15 00:04 Order name: NT PRO-BNP; Complete Time: 02:14 pkl 10/15 00:04 Order name: PT-INR; Complete Time: 02:14 pkl 10/15 00:04 Order name: Troponin (emerg Dept Use Only); Complete Time: 02:14 pkl 10/15 00:04 Order name: XRAY Chest (1 view) pkl 10/15 00:04 Order name: EKG; Complete Time: 00:07 pkl 10/15 00:04 Order name: ABG; Complete Time: 02:14 pkl 10/15 00:05 Order name: Basic Metabolic Panel; Complete Time: 02:14 EDMS 10/15 00:05 Order name: CBC with Automated Diff; Complete Time: 02:14 EDMS 10/15 00:05 Order name: Liver (Hepatic) Function; Complete Time: 02:14 EDMS 10/15 03:35 Order name: CONS Pharmacy Consult EDMS 10/15 00:04 Order name: Cardiac monitoring; Complete Time: 00:47 pkl 10/15 00:04 Order name: EKG - Nurse/Tech; Complete Time: 00:46 pkl 10/15 00:04 Order name: IV Saline Lock; Complete Time: 00:46 pkl 10/15 00:04 Order name: Labs collected and sent; Complete Time: 00:46 pkl 10/15 00:04 Order name: O2 Per Protocol; Complete Time: 00:46 pkl 10/15 00:04 Order name: O2 Sat Monitoring; Complete Time: 00:46 pkl 10/15 03:35 Order name: Heart Healthy EDMS Administered Medications: No medications were administered Disposition: 10/16/19 03:00 Hospitalization ordered by Annmarie Carrasco for Observation. Preliminary diagnosis is Dyspnea. generalized weakness. Positive Covid 19. - Bed requested for Telemetry/MedSurg (observation). - Status is Observation. - Condition is Stable. - Problem is new. - Symptoms have improved. Signatures: Dispatcher [employer] EDMS Susan Au RN RN Marco Velázquez MD MD pk Nicholas Bowers Corrections: (The following items were deleted from the chart) 03:16 03:00 Hospitalization Ordered by Annmarie Carrasco MD for Observation. Preliminary diagnosis is Dyspnea. generalized weakness. Positive Covid 19. Bed requested for Telemetry/MedSurg (observation). Status is Observation. Condition is Stable. Problem is new. Symptoms have improved. [facility] 05:21 03:16 10/16/2019 03:00 Hospitalization Ordered by Annmarie Carrasco MD for Observation. Preliminary diagnosis is Dyspnea. generalized weakness. Positive Covid 19. Bed requested for Telemetry/MedSurg (observation). Status is Observation. Condition is Stable. Problem is new. Symptoms have improved.
--- NOTE | 2019-10-16 03:01 | ER ---
Nurse's Notes [facility] Name: Christy Priest Age: 64 yrs Sex: Female : 1955 Arrival Date: 10/15/2019 Time: 23:24 Bed 6 Private MD: Diagnosis: Dyspnea. generalized weakness. Positive Covid 19 Presentation: 10/14 23:43 Chief complaint: EMS states: Pt was just discharged last Friday with same complaint. wh Pt C/O dry heaving, weakness and SOB. Pt positive for covid. Coronavirus screen: Patient reports a cough. Patient reports shortness of breath or difficulty breathing. Patient denies measured and/or subjective temperature greater than 100.4F prior to today's visit. Patient denies travel on a cruise ship or to a country the [facility] currently lists as an affected area. Patient denies contact with known and/or suspected case of COVID-19. Prior COVID test Pt Positive. Ebola Screen: Patient negative for fever greater than or equal to 101.5 degrees Fahrenheit, and additional compatible Ebola Virus Disease symptoms Patient denies exposure to infectious person. Initial Sepsis Screen: Does the patient meet any 2 criteria? No. Patient's initial sepsis screen is negative. Does the patient have a suspected source of infection? Yes: Productive cough/pneumonia. Risk Assessment: Do you want to hurt yourself or someone else? Patient reports no desire to harm self or others. Onset of symptoms was October 15, 2019. 23:43 Method Of Arrival: EMS: [facility] 23:43 Acuity: DENNY 3 wh Historical: - Allergies: 23:47 Augmentin; 23:47 basil; 23:47 Clindamycin; 23:47 HYDROCODONE; 23:47 Morphine; 23:47 Nitroglycerin; 23:47 Tramadol HCl; 23:47 Trazodone; 23:47 Vancomycin; 23:47 Vicodin; wh - Home Meds: 23:47 gabapentin Oral [Active]; Hydralazine Oral [Active]; insulin [Active]; Lasix Oral wh [Active]; Plavix Oral [Active]; - PMHx: 23:47 CHF; COPD; Diabetes - IDDM; ESRD; High Cholesterol; Hypertension; triple bypass; wh uterine cancer; - Immunization history:: Adult Immunizations up to date. - Social history:: Smoking status: Patient/guardian denies using. Screenin:47 Abuse screen: Denies threats or abuse. Denies injuries from another. Nutritional wh screening: On. Tuberculosis screening: No symptoms or risk factors identified. Fall Risk None identified. Assessment: 23:35 General: Appears in no apparent distress. Behavior is calm, cooperative, appropriate wh for age. Pain: Denies pain. Neuro: Level of Consciousness is awake, alert, obeys commands, Oriented to person, place, time, situation, Appropriate for age. Cardiovascular: Heart tones S1 S2 Edema is 3+ to waist, left ankle, left foot, right ankle and right foot. Respiratory: Reports shortness of breath cough that is Airway is patent Respiratory effort is even, unlabored, Respiratory pattern is regular, symmetrical, Breath sounds with rales. GI: Abdomen is round noted to have ascites, abdominal edema. : No signs and/or symptoms were reported regarding the genitourinary system. EENT: No signs and/or symptoms were reported regarding the EENT system. Derm: Skin is thin. Derm: Wound noted RLE. Musculoskeletal: Circulation, motion, and sensation intact. 10/15 00:45 Reassessment: Patient appears in no apparent distress at this time. No changes from previously documented assessment. Patient and/or family updated on plan of care and expected duration. Pain level reassessed. Patient is alert, oriented x 3, equal unlabored respirations, skin warm/dry/pink. 02:00 Reassessment: Patient appears in no apparent distress at this time. No changes from previously documented assessment. Patient and/or family updated on plan of care and expected duration. Pain level reassessed. Patient is alert, oriented x 3, equal unlabored respirations, skin warm/dry/pink. 03:10 Reassessment: Patient appears in no apparent distress at this time. No changes from previously documented assessment. Patient and/or family updated on plan of care and expected duration. Pain level reassessed. Patient is alert, oriented x 3, equal unlabored respirations, skin warm/dry/pink. MD at bedside explaining POC need for admit. Vital Signs: 10/14 23:43 BP 170 / 75; Pulse 66; Resp 18; Temp 97.5; Pulse Ox 97% ; wh 07/18 01:00 BP 166 / 87; Pulse 70; Resp 16; Pulse Ox 99% on R/A; 02:00 BP 174 / 92; Pulse 69; Resp 14; Pulse Ox 99% on R/A; 03:15 BP 183 / 95; Pulse 66; Resp 16; Pulse Ox 99% on R/A; 04:30 BP 162 / 85; Pulse 67; Resp 16; Pulse Ox 99% on R/A; ED Course: 10/14 23:24 Patient arrived in ED. cf2 23:45 Triage completed. 23:48 Marco Velázquez MD is Attending Physician. pkl 23:48 Patient has correct armband on for positive identification. Placed in gown. Bed in low wh position. Call light in reach. Side rails up X 1. resistor inspector on. Pulse ox on. NIBP on. 23:48 Arm band placed on right wrist. 10/15 00:06 Nicholas Bowers is Primary Nurse. 00:50 Inserted saline lock: 20 gauge in right forearm, using aseptic technique. Blood ds4 collected. 00:57 XRAY Chest (1 view) In Process Unspecified. EDMS 02:59 Annmarie Carrasco MD is Hospitalizing Provider. pkl 05:03 No provider procedures requiring assistance completed. Patient admitted, IV remains in place. Administered Medications: No medications were administered Outcome: 03:00 Decision to Hospitalize by Provider. pkl 03:18 Instructed on the need for admit, Demonstrated understanding of instructions. ea 05:03 Admitted to Tele accompanied by tech, via wheelchair, room 413, with chart, Report called to Andria Leija RN 05:03 Condition: stable 05:03 Instructed on the need for admit, Demonstrated understanding of instructions. 05:21 Patient left the ED. Signatures: Dispatcher [employer] EDMS Marco Velázquez MD MD pkl Kailash Franco ds4 Ana Menjivar RN RN ea Habalo, Winsy Refugio Tripathi cf2 Corrections: (The following items were deleted from the chart) 03:23 01:00 BP 166 / 87; Pulse 70bpm; Resp 20bpm; Pulse Ox 99% RA; [facility] 03:24 02:00 BP 174 / 92; Pulse 69bpm; Resp 20bpm; Pulse Ox 99% RA; wh wh
[2019-10-16] MEDS ORDERED: HYDROCODONE/APAP 10/325 TAB PO PRN (03:37)
--- NOTE | 2019-10-16 03:43 | P.HP ---
Certification for Inpatient Patient admitted to: Observation With expected LOS: <2 Midnights Patient will require the following post-hospital care: None Practitioner: I am a practitioner with admitting privileges, knowledge of patient current condition, hospital course, and medical plan of care. Services: Services provided to patient in accordance with Admission requirements found in Title 42 Section 412.3 of the Code of Federal Regulations Patient History Date of Service: 10/16/19 Reason for admission: NAUSEA VOMITING; MILD DEHYDRATION History of Present Illness: PATIENT IS A 64-YEAR-OLD FEMALE WELL KNOWN TO ME FROM MULTIPLE PRIOR ADMISSIONS WHO CAME TO THE HOSPITAL WITH GENERALIZED WEAKNESS. PATIENT REMAINS COVID POSITIVE. SHE STATES SHE HAS HAD NAUSEA AND VOMITING AND IS FEELING REALLY WEAK. SHE APPEARS TO BE DEHYDRATED. SHE HAS HAD WORSENING UREMIA WELL WORSENING CREATININE LEVELS. HOWEVER, HER HEMOGLOBIN REMAINED STABLE. SHE CAME INTO THE EMERGENCY ROOM FOR FURTHER EVALUATION. AFTER SPEAKING WITH HER, SHE WILL BE ADMITTED FOR OBSERVATION. SHOULD BE ABLE TO DISCHARGE TODAY AFTER OBSERVATION. Allergies morphine Allergy (Severe, Verified 07/07/19 00:33) Anaphylaxis vancomycin Allergy (Intermediate, Verified 06/18/19 03:59) Nausea/Vomiting basil Allergy (Verified 06/18/19 03:59) Nausea/Vomiting tramadol Allergy (Verified 07/07/19 04:12) Nausea/Vomiting trazodone Allergy (Verified 06/18/19 03:59) Nausea/Vomiting nitroglycerin Adverse Reaction (Mild, Verified 06/18/19 04:00) Nausea/Vomiting Home Medications: Aspirin 81 mg PO DAILY #90 tab.chew 06/18/19 Atorvastatin Calcium [Lipitor] 40 mg PO DAILY #30 tablet 06/18/19 Carvedilol [Coreg] 12.5 mg PO BID #60 tablet 06/18/19 Clopidogrel Bisulfate [Plavix*] 75 mg PO DAILY #60 tablet 06/18/19 Insulin Detemir [Levemir Flextouch] 10 units SQ DAILY #1 insuln.pen 06/18/19 Fluticasone [Flovent Hfa 110*] 2 puff IH DAILY 07/07/19 Sertraline [Zoloft*] 25 mg PO DAILY 07/07/19 Buproprion S.r. [Wellbutrin Sr*] 1 tab PO BID 09/28/19 Furosemide 2 tab PO BID 09/28/19 Codeine/APAP [Tylenol W/Codeine #3 tab] 1 tab PO Q6HP PRN #30 tab 10/12/19 Collagenase [Santyl Ointment*] 15 gm TP DAILY 10/12/19 Isosorbide Mononitrate [Isosorbide Mononitrate ER] 30 mg PO DAILY 10/12/19 Levofloxacin [Levaquin] 250 mg PO DAILY 10/12/19 Levofloxacin [Levaquin] 500 mg PO 1700 10/12/19 Linezolid [Zyvox] 600 mg PO Q12H #14 tablet 10/12/19 - Past Medical/Surgical History Diabetic: Yes -: COPD -: Hypertension -: CAD, CABG x4 vessels (August 2017) -: Diabetes mellitus type 2, insulin-dependent -: Chronic diastolic CHF -: Uterine cancer status post hysterectomy -: Chronic renal disease, stage IV -: 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 Her son lives with her. She has 3 children. - Family History Brother Medical History: Heart disease, Hypertension, Diabetes Notes: Father Medical History: Heart disease, Cancer Notes: - Prostate surgery - Hemorrhage Mother Medical History: GI disease Notes: Sister Medical History: Heart disease Notes: - Respiratory failure - Social History Alcohol use: No CD- Drugs: No Caffeine use: Yes Review of Systems 10-point ROS is otherwise unremarkable Physical Examination - Vital Signs Temperature: 98 F Blood Pressure: 130/80 Pulse: 76 Respirations: 18 Pulse Ox (%): 98 - Physical Exam General: Alert, In no apparent distress, Oriented x3 HEENT: Atraumatic, PERRLA, Mucous membr. moist/pink, EOMI, Sclerae nonicteric Neck: Supple, 2+ carotid pulse no bruit, No LAD, Without JVD or thyroid abnormality Respiratory: Clear to auscultation bilaterally, Normal air movement Cardiovascular: Regular rate/rhythm, Normal S1 S2, Systolic murmur Gastrointestinal: Normal bowel sounds, Soft and benign, Non-distended, No tenderness Musculoskeletal: No clubbing, No tenderness, Swelling (MINIMAL) Integumentary: No rashes, Other (WOUND ON THE 2ND TOE) Neurological: Normal strength at 5/5 x4 extr, Normal tone, Sensation intact, Cranial nerves 3-12 intact Lymphatics: No axilla or inguinal lymphadenopathy - Studies Laboratory Data (last 24 hrs) 10/16/19 00:50: PT 14.2 H, INR 1.21 10/16/19 00:50: WBC 5.4, Hgb 9.8 L, Hct 31.0 L, Plt Count 130 L D 10/16/19 00:50: Sodium 141, Potassium 4.6, BUN 38 H, Creatinine 2.23 H, Glucose 97, Magnesium 1.9, Total Bilirubin 0.8, AST 28, ALT 14, Alkaline Phosphatase 133 H Assessment & Plan - Problems (Diagnosis) (1) Nausea & vomiting Current Visit: Yes Status: Acute (2) Vlnfl-[id number]-[id number] kidney injury Onset Date: 09/09/16 Current Visit: No Status: Acute Qualifiers: (3) Anemia Current Visit: No Status: Acute (4) CAD (coronary artery disease) Onset Date: 10/03/17 Current Visit: No Status: Chronic Qualifiers: (5) CHF (congestive heart failure) Onset Date: 04/28/15 Current Visit: No Status: Chronic Qualifiers: (6) COPD (chronic obstructive pulmonary disease) Onset Date: 02/04/17 Current Visit: No Status: Chronic Qualifiers: (7) Diabetes mellitus Onset Date: 10/03/17 Current Visit: No Status: Chronic Qualifiers: (8) History of - depression Current Visit: No Status: Chronic (9) History of coronary artery bypass graft Current Visit: No Status: Chronic (10) History of femoropopliteal bypass Current Visit: No Status: Chronic (11) Neuropathy Onset Date: 09/09/16 Current Visit: No Status: Chronic (12) Peripheral vascular disease Onset Date: 10/03/17 Current Visit: No Status: Chronic (13) Tobacco abuse Onset Date: 02/04/17 Current Visit: No Status: Chronic (14) Cellulitis, toe Onset Date: 01/07/14 Current Visit: No Status: Resolved - Plan PLAN: 1. CONTINUE WITH IV FLUIDS FOR 1 L THEN WILL DISCONTINUE 2. ANTI EMETICS 3. STRICT BLOOD PRESSURE AND BLOOD SUGAR CONTROL 4. CONTINUE WITH CARDIAC MEDS 5. CONTINUE WITH ANTIBIOTICS 6. GI AND DVT PROPHYLAXIS - Advance Directives Does patient have a Living Will: Yes Does patient have a Durable POA for Healthcare: Yes - Code Status/Comfort Care Code Status Assessed: Yes Code Status: Full Code Critical Care: No Time Spent Managing PTS Care (In Minutes): 45
[2019-10-16] MEDS ORDERED: ALBUMIN HUMAN 25% 100 ML IV ONE (03:45)
[2019-10-16] MEDS ORDERED: NA CHLORIDE 0.9% 1,000 ML IV SCH (04:00)
[2019-10-16] MEDS ORDERED: LINEZOLID 600 MG TAB PO SCH ×2 (04:00→09:00)
[2019-10-16] MEDS ORDERED: dexAMETHasone 10 MG/ML VIAL IV SCH (06:00)
[2019-10-16] MEDS: ONDANSETRON 4 MG/2 ML VIAL IV PRN ×2 (06:09→09:39)
[2019-10-16 06:33] VITALS: BMI 30.2
[2019-10-16] MEDS ORDERED: SERTRALINE HCL 50 MG TAB PO SCH (09:00)
[2019-10-16] MEDS ORDERED: ATORVASTATIN 40 MG TAB PO SCH (09:00)
[2019-10-16] MEDS ORDERED: ASPIRIN 81 MG CHEWABLE TABLET PO SCH (09:00)
[2019-10-16] MEDS ORDERED: ISOSORBIDE MONO SR 30 MG TAB PO SCH (09:00)
[2019-10-16] MEDS ORDERED: BUPROPRION HCL S.R. 150MG TAB PO SCH (09:00)
[2019-10-16] MEDS ORDERED: carvediloL 12.5 MG TAB PO SCH (09:00)
[2019-10-16] MEDS ORDERED: CLOPIDOGREL 75 MG TABLET PO SCH (09:00)
[2019-10-16 09:15] VITALS: O2SAT 100
--- NOTE | 2019-10-16 10:02 | RAD REPORT ---
EXAM DESCRIPTION: Butch Single View10/16/2019 12:56 am CLINICAL HISTORY: Shortness breath COMPARISON: October 10 FINDINGS: Small to moderate right pleural effusion suspected with right basilar atelectasis Left lung appears clear of acute infiltrate. The heart is mildly enlarged. Postsurgical changes involve the chest.
[2019-10-16] MEDS ORDERED: dexAMETHasone 4 MG/ML VIAL IV SCH (12:00)
[2019-10-16 12:04] LABS: Absolute Lymphocytes (CBC) 0.9 K/uL (0.7-4.9); Basophils % 0.4 % (0-1.3); Lymphocytes % 23.8 % (15.3-44.8); MPV 7.1 fL (7.6-11.3); RBC Red Blood Cell Count 3.48 M/uL (3.86-4.86)
[2019-10-16 12:11] LABS: Magnesium 1.9 mg/dL (1.8-2.4); Phosphorus 3.3 mg/dL (2.5-4.9); Potassium 4.8 mmol/L (3.5-5.1)
[2019-10-16 13:51] VITALS: BP 181/91; TEMP 96.7
--- NOTE | 2019-10-17 08:10 | EKG ---
Test Date: 2019-10-16 Test Time: 00:51:13 [address] Aide: VIOLETA MEASUREMENT RESULTS: Intervals: Rate: 68 [place]: 212 QRSD: 104 QT: 444 QTc: 472 [place]: P: 59 [place]: 212 QRS: 108 T: 115 INTERPRETIVE STATEMENTS: Sinus rhythm with 1st degree AV block Rightward axis Low voltage QRS Septal infarct, age undetermined Abnormal ECG Compared to ECG 10/11/2019 17:28:32 First degree AV block now present Right-axis deviation now present Incomplete right bundle-branch block no longer present T-wave abnormality no longer present Possible ischemia no longer present Myocardial infarct finding still present Electronically Signed On 10-17-19 08:09:00 CDT by Taj Raymond
--- NOTE | 2019-10-23 01:39 | P.DS ---
Discharge Date: 10/16/19 Disposition: ROUTINE DISCHARGE Discharge Condition: GOOD Reason for Admission: NAUSEA VOMITING; MILD DEHYDRATION - Problems (1) Nausea & vomiting Status: Acute (2) Biikp-om-conqiux kidney injury Onset Date: 09/09/16 Status: Acute Qualifiers: (3) Anemia Status: Acute (4) CAD (coronary artery disease) Onset Date: 10/03/17 Status: Chronic Qualifiers: (5) CHF (congestive heart failure) Onset Date: 04/28/15 Status: Chronic Qualifiers: (6) COPD (chronic obstructive pulmonary disease) Onset Date: 02/04/17 Status: Chronic Qualifiers: (7) Diabetes mellitus Onset Date: 10/03/17 Status: Chronic Qualifiers: (8) History of - depression Status: Chronic (9) History of coronary artery bypass graft Status: Chronic (10) History of femoropopliteal bypass Status: Chronic (11) Neuropathy Onset Date: 09/09/16 Status: Chronic (12) Peripheral vascular disease Onset Date: 10/03/17 Status: Chronic (13) Tobacco abuse Onset Date: 02/04/17 Status: Chronic (14) Cellulitis, toe Onset Date: 01/07/14 Status: Resolved Brief History of Present Illness: PATIENT IS A 64-YEAR-OLD FEMALE WELL KNOWN TO ME FROM MULTIPLE PRIOR ADMISSIONS WHO CAME TO THE HOSPITAL WITH GENERALIZED WEAKNESS. PATIENT REMAINS COVID POSITIVE. SHE STATES SHE HAS HAD NAUSEA AND VOMITING AND IS FEELING REALLY WEAK. SHE APPEARS TO BE DEHYDRATED. SHE HAS HAD WORSENING UREMIA WELL WORSENING CREATININE LEVELS. HOWEVER, HER HEMOGLOBIN REMAINED STABLE. SHE CAME INTO THE EMERGENCY ROOM FOR FURTHER EVALUATION. AFTER SPEAKING WITH HER, SHE WILL BE ADMITTED FOR OBSERVATION. SHOULD BE ABLE TO DISCHARGE TODAY AFTER OBSERVATION. Hospital Course: Patient has done well during hospital stay. Patient clinically is improving.She is tolerating diet. Nausea and vomiting has resolved. At this time, patient is stable for discharge. Patient will need close outpatient follow up in 1-2 weeks. Vital Signs/Physical Exam: Temp Pulse Resp BP Pulse Ox 96.7 F L 57 16 181/91 H 100 10/16/19 12:00 10/16/19 12:00 10/16/19 12:00 10/16/19 12:00 10/16/19 12:00 General: Alert, In no apparent distress, Oriented x3 Laboratory Data at Discharge: WBC 3.9 K/uL (4.3-10.9) L D 10/16/19 11:48 Hgb 9.8 g/dL (12.0-15.0) L 10/16/19 11:48 Hct 31.0 % (36.0-45.0) L 10/16/19 11:48 Plt Count 111 K/uL (152-406) L 10/16/19 11:48 PT 14.2 SECONDS (9.5-12.5) H 10/16/19 00:50 INR 1.21 10/16/19 00:50 Sodium 141 mmol/L (136-145) 10/16/19 11:48 Potassium 4.8 mmol/L (3.5-5.1) 10/16/19 11:48 BUN 38 mg/dL (7-18) H 10/16/19 11:48 Creatinine 2.12 mg/dL (0.55-1.3) H 10/16/19 11:48 Glucose 175 mg/dL (74-106) H 10/16/19 11:48 Phosphorus 3.3 mg/dL (2.5-4.9) 10/16/19 11:48 Magnesium 1.9 mg/dL (1.8-2.4) 10/16/19 11:48 Total Bilirubin 0.8 mg/dL (0.2-1.0) 10/16/19 00:50 AST 28 U/L (15-37) 10/16/19 00:50 ALT 14 U/L (12-78) 10/16/19 00:50 Alkaline Phosphatase 133 U/L (45-117) H 10/16/19 00:50 Home Medications: Aspirin 81 mg PO DAILY #90 tab.chew 06/18/19 Atorvastatin Calcium [Lipitor] 40 mg PO DAILY #30 tablet 06/18/19 Carvedilol [Coreg] 12.5 mg PO BID #60 tablet 06/18/19 Clopidogrel Bisulfate [Plavix*] 75 mg PO DAILY #60 tablet 06/18/19 Insulin Detemir [Levemir Flextouch] 10 units SQ DAILY #1 insuln.pen 06/18/19 Fluticasone [Flovent Hfa 110*] 2 puff IH DAILY 07/07/19 Sertraline [Zoloft*] 25 mg PO DAILY 07/07/19 Furosemide 2 tab PO BID 09/28/19 Collagenase [Santyl Ointment*] 15 gm TP DAILY 10/12/19 Isosorbide Mononitrate [Isosorbide Mononitrate ER] 30 mg PO DAILY 10/12/19 Linezolid [Zyvox] 600 mg PO Q12H #14 tablet 10/12/19 Codeine/APAP [Tylenol #3*] 1 tab PO Q6HP PRN 10/16/19 Gabapentin 1 cap PO TID 10/16/19 Mupirocin 1 raquel TOP DAILY 10/16/19 buPROPion HCL [Bupropion HCl Sr] 1 tab PO BID 10/16/19 Patient Discharge Instructions: OK TO DC IV AND DC HOME. FOLLOW-UP WITH PRIMARY CARE PROVIDER IN 1-2 WEEKS. FOLLOW-UP WITH NEPHROLOGY IN 1-2 WEEKS. FOLLOW-UP WITH [facility] IN 1-2 WEEKS. RETURN TO THE ER IF SYMPTOMS WORSENED. CALL or TEXT DR. COOPER AT [phone] IF ANY QUESTIONS REGARDING HOSPITAL STAY. PLEASE CALL THE FLOOR AT [phone] IF ANY MEDICATION OR NURSING QUESTIONS. Diet: AHA Activity: Fall precautions Time spent managing pt's care (in minutes): 15
== END 2019-10-16 15:30 | disposition home or self-care (01) ==
LOC: ER 23:23 → 4TH 10-16 05:06
PROVIDERS: ADMIT Hospitalist; ATTEND Hospitalist
DX: E86.0 Dehydration (principal); U07.1 COVID-19; R11.2 Nausea with vomiting, unspecified; E11.22 Type 2 diabetes mellitus with diabetic chronic kidney disease; I13.0 Hypertensive heart and chronic kidney disease with heart failure and stage 1 through stage 4 chronic kidney disease, or unspecified chronic kidney disease; N18.4 Chronic kidney disease, stage 4 (severe); I50.32 Chronic diastolic (congestive) heart failure; D63.1 Anemia in chronic kidney disease; D50.9 Iron deficiency anemia, unspecified; I44.0 Atrioventricular block, first degree; R94.31 Abnormal electrocardiogram [ECG] [EKG]; E11.40 Type 2 diabetes mellitus with diabetic neuropathy, unspecified; E11.51 Type 2 diabetes mellitus with diabetic peripheral angiopathy without gangrene; E78.5 Hyperlipidemia, unspecified; J44.9 Chronic obstructive pulmonary disease, unspecified; I25.10 Atherosclerotic heart disease of native coronary artery without angina pectoris; E66.01 Morbid (severe) obesity due to excess calories; F17.200 Nicotine dependence, unspecified, uncomplicated; Z79.82 Long term (current) use of aspirin; Z79.4 Long term (current) use of insulin; Z79.51 Long term (current) use of inhaled steroids; Z79.02 Long term (current) use of antithrombotics/antiplatelets; Z79.899 Other long term (current) drug therapy; Z95.1 Presence of aortocoronary bypass graft; Z85.42 Personal history of malignant neoplasm of other parts of uterus; Z89.412 Acquired absence of left great toe
CPT/HCPCS: 93005; 85025 ×2; 80048 ×2; 36415; 83735 ×2; 84100; 85610; 80076; 83605; 84484; 83880; 71045; 82805; 99285; J1100; P9047; J7030; J2405 ×2; G0378 ×2

== ENCOUNTER 2019-10-27 14:33 | Emergency (ER) | payer MEDICAID ==
[2011-08-28 08:38] VITALS: BP 161/75
--- OUTSIDE RECORDS SUMMARY | 2019-10-27 15:37 | XMS REPORT | Clinical Summary ---
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 05/19/2017 [...] VACCINE (#1) 2019 Implants Implanted Type Area Nanotechnologist Device Shelf Model / Identifier Expiration Serial / Date Lot Device Clsr Angio-Seal Vip 8fr [id number] - [id number] Cardiovascular N/A: [facility] 01/28/2018 [id number] / Implanted: Qty: 1 on 05/12/2017 by Sandra Gaytan MD Groin MED:CARDIAC / SURG [id number] Grft Eptfe-Heparin Rng [id number] - [id number] Graft/P atch Right: SUHAS MATHEW & 04/09/2021 [id number] / Implanted: Qty: 1 on 08/05/2017 by Mariela Ramirez MD Leg ASSC:MED PRDT [id number] / N/A Results Not on fileafter 10/26/2018 Insurance Payer Benefit Plan / Group Subscriber ID Type Phone A ddress [place]ID [place] xxxxxxxxx Advance Directives For more information, please contact:[place] [address] [place], [place] [phone] Code Status Date Activated Date Inactivated Comments [...]
--- OUTSIDE RECORDS SUMMARY | 2019-10-27 15:44 | XMS REPORT | Continuity of Care Document ---
:[address] [facility] t Address [address] [place] [address] Care Team Providers Name Role Phone Landy [...] rosis of [address] [facility] 00:00: Medical artery of artery of 00 [...] l mellitus mellitus 00 Center with with offal separator offal separator y y disorder, disorder, with with long-term long-term current current use of use of insulin insulin Smoker Smoker Disease Active [facility] - [facility]: Medical 00 [place] Frequent Frequent Disease Active [facility] PVCs PVCs 2-12 [facility] - 00:[facility]: Medical 00 [place] Essential Essential Problem Active [facility] (primary) (primary) Luke s - hypertensi hypertensi Me moria on on l [facility] ent Clinics Depression Depression Problem Active [facility] , , [facility] - unspecifie unspecifie Me moria d d l depression depression Ou tpati type type ent Clinics History of History of Problem Active [facility] cancer cancer [facility] Primary Primary Problem Active [facility] insomnia insomnia [facility]ics Chronic Chronic Problem Active [facility] acquired acquired [facility] - lymphedema lymphedema Me moria [facility] ent Clinics Chronic Chronic Diagnosis Active [...] diastolic Luke s - congestive congestive Me [facility] heart heart l failure, failure, Outpat i NYHA class NYHA class en t 2 2 Clinics Chronic Chronic Problem Active [facility] obstructiv obstructiv Janna kes - e e Memoria pulmonary pulmonary l disease, disease, Outpat i unspecifie unspecifie en t d COPD d COPD Clinics type type [place] [facility] agent care home Problem Active [facility] current current [facility] - use of use of Memoria insulin insulin l [facility] ent Clinics History of History of Problem Active [facility] stroke stroke [facility] ent Clinics 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[address] diabetes diabetes [facility] - mellitus mellitus Memori a with with l hyperglyce hyperglyce Ou tpati cr [facility] ent Clinics 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[address] diabetes diabetes [facility] - mellitus mellitus Memori a with with l diabetic diabetic Outpat i chronic chronic ent kidney kidney Clinics disease disease Kidney Kidney Problem Active [facility] disease disease [facility] ent Clinics Allergies, Adverse Reactions, Alerts [...] Analogue adverse 00:00: Medical s reaction 00 [place] Vancomyc Adverse Active vomiting [facility] t in HCl Reaction [facility] Clinics Nitrogly Adverse Active vomiting [facility] t cerin Reaction [facility] ent [facility] Morphine Adverse Active headache, [facility] Sulfate Reaction breathing Luke s - Memoria l [facility] Clindamy Adverse Active vomiting [facility] t riley HCl Reaction [facility] Family History Family Member Diagnosis Comments Start Date Stop Date Source Natural father COPD [facility] Natural father Cancer [facility] Natural father Hypertension [facility] Natural mother No Known Problem [facility] Natural sister Asthma [facility] Natural sister COPD [facility] Social History Social Habit Start Date Stop Date Quantity Comments Source Sex Assigned At [facility] Cigarettes smoked 2017-09-02 2017-09-02 [facility] - current (pack per 00:00:00 00:00:00 Medical Center day) - Reported Cigarette 2017-09-02 2017-09-02 [facility] - pack-years 00:00:00 00:00:00 [facility] History of tobacco 2017-05-12 Current smoker [facility] - use 00:00:00 [facility] Smoking Status Start Date Stop Date Source Former smoker 2017-09-02 00:00:00 2017-09-02 00:00:[address] [facility] Medications Ordered Filled [...] Inject [facility] detemir 3-04 0.05 mLs [facility] (LEVEMIR 00:00: (5 Units Medic al FLEXPEN) 00 total) [place] 100 unit/mL subcutaneo (3 mL) InPn usly every injection morning. pen needle, Yes Use as [facility] diabetic 29 3-04 directed Luke s - gauge Ndle 00:00: to inject Me dical 00 long and Center short acting insulin.. aspirin 81 Yes 81mg QD Take [address] MG EC 1-22 by mouth [facility] - tablet 20:09: daily. [facility] 35 [place] Trazodone Trazodone Yes Franki TAKE 1 C [...] 00:00:00 measurement Medical Center (procedure) [code = 18097179] Future Scheduled [address] [facility] - Test 00:00:00 [facility] cervix (procedure) [code = 287682166] Future Scheduled [address] DI[address]IC EYE EXAM [facility] - Test 00:00:00 [code = DIABETIC EYE Medical Center EXAM] Future Scheduled [address] [facility] - Test 00:00:00 examination Medical Center (regime/therapy) [code = 630293003] Future Scheduled 1965 Urine screening for [facility] - Test 00:00:00 protein (procedure) Medical Center [code = 867308940] Future Scheduled [address] [facility] - Test 00:00:00 2-64 YEARS AT RISK (1 Medica l Center of 1 - PPSV23) [code = PNEUMOCOCCAL VACCINE 2-64 YEARS AT RISK (1 of 1 - PPSV23)] Future Scheduled [address] [facility] - Test 00:00:00 [facility] breast (procedure) [code = 287312863] Future Scheduled [address] [facility] - Test 00:00:00 [facility] colon (procedure) [code = 584862486] Encounters Start End Encounter Admission Attending Care Care Encounter Source Date/Time Date/Time Type Type Clinicians Facility Department ID 2018-11-17 2018-11-17 Outpatient Alison Wilson [id number] 11:30:00 11:30:00 [facility] Family Medicine Medicine [facility] Clinics 2018-10-06 2018-10-06 Outpatient Alison Wilson [id number] 16:14:00 16:14:00 [facility] Medicine Medicine Outpati ent Clinics 2018-09-28 2018-09-28 Outpatient Alison Wilson [id number] 10:30:00 10:30:00 [facility] Medicine Outpati ent Clinics Results Test Description Test Time Test Comments Results Result Comments Source POCT-GLUCOSE METER 2017-09-05 17:13:00 Test Item Value Reference Range Interpretation Comme nts POC-GLUCOSE METER (BEAKER) (test 220 mg/dL 70-110 H TESTED AT [facility] [address] [facility] = 1538) [facility] 7703 0 BASIC METABOLIC [id number] 15:47:00 Test Item Value Reference Range Interpretation [...] NOT APPLICABLE FOR DIALYSIS PATIEN TS. POCT-GLUCOSE [id number] 11:30:00 Test Item Value Reference Range Interpretation Comments POC-GLUCOSE METER 268 mg/dL 70-110 H TESTED AT [facility] 6720 (BEAKER) (test code = MATTHIASMO Dylon [facility] 1538) [address] POCT-GLUCOSE [id number] 07:08:00 Test Item Value Reference Range Interpretation Comments POC-GLUCOSE METER 208 mg/dL 70-[address] [facility] ([facility]ER) (test code = MATTHIASMO Dylon [facility] 1538) [address] CALCIUM, [id number] 06:47:00 Test Item Value Reference Range Interpretation Comments CALCIUM IONIZED (BEAKER) (test 1.11 mmol/L 1.12-1.27 L code = 698) PH, BLOOD (BEAKER) (test code = 7.40 1810) BASIC METABOLIC [id number] 06:40:00 Test Item Value Reference Range Interpretation [...] S NOT APPLICABLE FOR DIALYSIS PATIEN TS. [id number] 06:33:00 Test Item Value Reference Range Interpretation Comments PHOSPHORUS (BEAKER) (test code = 5.1 mg/dL 2.3-4.7 H 604) [id number] 06:33:00 Test Item Value Reference Range Interpretation Comments MAGNESIUM (BEAKER) (test code = 2.0 mg/dL 1.6-2.6 627) LACTIC ACID, VENOUS, WHOLE [id number] 06:02:00 Test Item Value Reference Range Interpretation Comments LACTATE BLOOD VENOUS (2) (BEAKER) 0.8 mmol/L 0.5-2.2 (test code = 2872) Effective 08/02/2015: Units/Reference Range ChangeNew: 0.5-2.2 mmol/L Previous: 5-20 mg/dLCBC W/PLT COUNT & AUTO [id number] 05:54:00 Test Item Value Reference Range Interpretation [...] PERCENT (BEAKER) (test code = 2801) POCT-GLUCOSE [id number] 21:30:00 Test Item Value Reference Range Interpretation Comments POC-GLUCOSE METER 248 mg/dL 70-110 H TESTED AT [place] [address] ([facility]) (test code = JULIANO Osborne [facility] 1538) [address] RAD, [id number] 21:22:00Reason for exam:->fall, tailbone painFINAL REPORT RAD, [...] MDReport Verified Date/Time: 09/04/2017 21:22:03 Reading Location: [address] Reading Room POCT-GLUCOSE [id number] 17:37:00 Test Item Value Reference Range Interpretation Comments POC-GLUCOSE METER 222 mg/dL 70-110 H TESTED AT [place] [address] ([facility]) (test code = JULIANO Osborne [place] 1538) [address] POCT-GLUCOSE [id number] 13:55:00 Test Item Value Reference Range Interpretation Comments POC-GLUCOSE METER 194 mg/dL 70-110 H TESTED AT [place] [address] ([facility]) (test code = JULIANO Osborne [facility] 1538) [address] POCT-GLUCOSE [id number] 12:34:00 Test Item Value Reference Range Interpretation Comments POC-GLUCOSE METER 229 mg/dL 70-110 H TESTED AT [place] [address] ([facility]) (test code = JULIANO Osborne [place] 1538) [address] POCT-GLUCOSE [id number] 08:00:00 Test Item Value Reference Range Interpretation Comments POC-GLUCOSE METER 159 mg/dL 70-110 H TESTED AT [facility] 6720 (BEAKER) (test code = JULIANO [place] 1538) [address] CALCIUM, [id number] 06:00:00 Test Item Value Reference Range Interpretation Comments CALCIUM IONIZED (BEAKER) (test 1.05 mmol/L 1.12-1.27 L code = 698) PH, BLOOD (BEAKER) (test code = 7.45 1810) [id number] 05:59:00 Test Item Value Reference Range Interpretation Comments PHOSPHORUS (BEAKER) (test code = 4.8 mg/dL 2.3-4.7 H 604) [id number] 05:59:00 Test Item Value Reference Range Interpretation Comments MAGNESIUM (BEAKER) (test code = 2.0 mg/dL 1.6-2.6 627) BASIC METABOLIC [id number] 05:59:00 Test Item Value Reference Range Interpretation [...] = 380) CBC W/PLT COUNT & AUTO [id number] 05:32:00 Test Item Value Reference Range Interpretation [...] 417) IMMATURE GRANULOCYTES-RELATIVE 0 % 0-1 [facility]CENT [facility] (test code = 2801) POCT-GLUCOSE [id number] 20:36:00 Test Item Value Reference Range Interpretation Comments POC-GLUCOSE METER 211 mg/dL 70-110 H TESTED AT [place] [address] [facility] (test code = JULIANO Osborne [facility] 1538) [address] CREATININE, RANDOM [id number] 19:55:00 Test Item Value Reference Range Interpretation Comments CREATININE URINE (BEAKER) (test 16.1 mg/dL code = 375) Reference Range: No NormalsPROTEIN, RANDOM [id number] 19:55:00 Test Item Value Reference Range Interpretation Comments PROTEIN, URINE (BEAKER) (test code 102 mg/dL 0-14 H = 1569) POCT-GLUCOSE [id number] 18:04:00 Test Item Value Reference Range Interpretation Comments POC-GLUCOSE METER 177 mg/dL 70-110 H TESTED AT [place] [address] ([facility]) (test code = JULIANO Osborne [facility] 1538) [address] POCT-GLUCOSE [id number] 11:59:00 Test Item Value Reference Range Interpretation Comments POC-GLUCOSE METER 244 mg/dL 70-110 H TESTED AT [place] [address] ([facility]) (test code = JULIANO Osborne [facility] 1538) [address] POCT-GLUCOSE [id number] 07:53:00 Test Item Value Reference Range Interpretation Comments POC-GLUCOSE METER 160 mg/dL 70-110 H TESTED AT [place] [address] ([facility]) (test code = JULIANO Osborne [facility] 1538) [address] BASIC METABOLIC [id number] 05:29:00 Test Item Value Reference Range Interpretation [...] S NOT APPLICABLE FOR DIALYSIS PATIEN TS. [id number] 05:21:00 Test Item Value Reference Range Interpretation Comments MAGNESIUM (BEAKER) (test code = 2.1 mg/dL 1.6-2.6 627) HEPATIC FUNCTION [id number] 05:21:00 Test Item Value Reference Range Interpretation [...] code = 23 U/L 6-55 347) TROPONIN [id number] 05:18:00 Test Item Value Reference Range Interpretation [...] PERCENT (BEAKER) (test code = 2801) TROPONIN [id number] 23:40:00 Test Item Value Reference Range Interpretation [...] acidosis, acute neurological disease, and persistent tachyarrhythmia.POCT-GLUCOSE [id number] 22:51:00 Test Item Value Reference Range Interpretation Comments POC-GLUCOSE METER 214 mg/dL 70-110 H TESTED AT [facility] 6720 [facility] (test code = JULIANO [place] 1538) [address] RAD, CHEST, 1 VIEW, NON [id number] 21:42:00Reason for exam:->CHEST PAINShould this be performed at the bedside?->YesFINAL REPORT RAD, CHEST, 1 VIEW, NON DEPT INDICATION: CHEST PAIN COMPARISON: Chest x-ray 4 weeks ago TECHNIQUE: Single frontal view of the chest. IMPRESSION:Cardiomegaly.Mild pulmonary interstitial edema with a small right- sided effusion.No acute osseous abnormality. Signed: Dario Abraham MDReport Verified Date/Time: 09/02/2017 21:42:11 Reading Location: [address] Reading Room CREATININE, RANDOM [id number] 21:10:00 Test Item Value Reference Range Interpretation Comments CREATININE URINE (BEAKER) (test 35.5 mg/dL code = 375) Reference Range: No NormalsSODIUM, RANDOM [id number] 21:10:00 Test Item Value Reference Range Interpretation Comments SODIUM URINE (BEAKER) (test code = 80 meq/L 243) Reference Range: No NormalsURINALYSIS W/ [id number] 20:59:00 Test Item Value Reference Range Interpretation [...] code = 514) SOURCE(BEAKER) (test code = 8754) BASIC METABOLIC [id number] 16:49:00 Test Item Value Reference Range Interpretation [...] S NOT APPLICABLE FOR DIALYSIS PATIEN TS. [id number] 16:38:00 Test Item Value Reference Range Interpretation [...] (BEAKER) (test code = 700) BASIC METABOLIC [id number] 13:43:00 Test Item Value Reference Range Interpretation [...] NOT APPLICABLE FOR DIALYSIS PATIEN TS. POCT-GLUCOSE [id number] 12:44:00 Test Item Value Reference Range Interpretation Comments POC-GLUCOSE METER 283 mg/dL 70-110 H TESTED AT [facility] 6720 (BEAKER) (test code = JULIANO [place] 1538) [address] CALCIUM, [id number] 07:03:00 Test Item Value Reference Range Interpretation Comments CALCIUM IONIZED (BEAKER) (test 1.02 mmol/L 1.12-1.27 L code = 698) PH, BLOOD (BEAKER) (test code = 7.43 1810) [id number] 05:28:00 Test Item Value Reference Range Interpretation Comments PHOSPHORUS (BEAKER) (test code = 3.3 mg/dL 2.3-4.7 604) [id number] 05:28:00 Test Item Value Reference Range Interpretation Comments MAGNESIUM (BEAKER) (test code = 1.5 mg/dL 1.6-2.6 L 627) BASIC METABOLIC [id number] 05:28:00 Test Item Value Reference Range Interpretation [...] PATIEN TS. CBC W/PLT COUNT & AUTO [id number] 05:06:00 Test Item Value Reference Range Interpretation [...] PERCENT (BEAKER) (test code = 2801) POCT-GLUCOSE [id number] 21:08:00 Test Item Value Reference Range Interpretation Comments POC-GLUCOSE METER 202 mg/dL 70-110 H TESTED AT [facility] 6720 (BEAKER) (test code = [facility] 1538) [address] POCT-GLUCOSE [id number] 16:50:00 Test Item Value Reference Range Interpretation Comments POC-GLUCOSE METER 287 mg/dL 70-110 H TESTED AT [facility] 6720 (BEAKER) (test code = [facility] 1538) [address] POCT-GLUCOSE [id number] 12:21:00 Test Item Value Reference Range Interpretation Comments POC-GLUCOSE METER 213 mg/dL 70-110 H TESTED AT [facility] 6720 ([facility] (test code = [facility] 1538) [address] POCT-GLUCOSE [id number] 08:28:00 Test Item Value Reference Range Interpretation Comments POC-GLUCOSE METER 178 mg/dL 70-110 H TESTED AT [facility] 6720 (BEAKER) (test code = [facility] 1538) [address] CALCIUM, [id number] 07:06:00 Test Item Value Reference Range Interpretation Comments CALCIUM IONIZED (BEAKER) (test 0.99 mmol/L 1.12-1.27 L code = 698) PH, BLOOD (BEAKER) (test code = 7.42 1810) [id number] 05:37:00 Test Item Value Reference Range Interpretation Comments PHOSPHORUS (BEAKER) (test code = 3.5 mg/dL 2.3-4.7 604) [id number] 05:37:00 Test Item Value Reference Range Interpretation Comments MAGNESIUM (BEAKER) (test code = 1.6 mg/dL 1.6-2.6 627) BASIC METABOLIC [id number] 05:37:00 Test Item Value Reference Range Interpretation [...] PATIEN TS. CBC W/PLT COUNT & AUTO [id number] 05:07:00 Test Item Value Reference Range Interpretation [...] PERCENT (BEAKER) (test code = 2801) POCT-GLUCOSE [id number] 21:24:00 Test Item Value Reference Range Interpretation Comments POC-GLUCOSE METER 255 mg/dL 70-110 H TESTED AT [place] [address] ([facility]) (test code = [facility] Dylon [facility] 1538) [address] POCT-GLUCOSE [id number] 17:11:00 Test Item Value Reference Range Interpretation Comments POC-GLUCOSE METER 244 mg/dL 70-110 H TESTED AT [place] [address] ([facility]) (test code = [facility] Dylon [facility] 1538) [address] POCT-GLUCOSE [id number] 11:54:00 Test Item Value Reference Range Interpretation Comments POC-GLUCOSE METER 209 mg/dL 70-110 H TESTED AT [place] [address] ([facility]) (test code = [facility] Dylon [facility] 1538) [address] POCT-GLUCOSE [id number] 08:15:00 Test Item Value Reference Range Interpretation Comments POC-GLUCOSE METER 132 mg/dL 70-110 H TESTED AT [place] [id number] ([facility]) (test code = [facility] Dylon [facility] 1538) [address] RAD, CHEST, 1 VIEW, NON [id number] 07:44:00Reason for exam:->edemaShould this be performed at the bedside?->YesFINAL REPORT Chest one view AP 08/07/2017 7:44 AM CLINICAL INDICATION: edema COMPARISON: 05/31/2017 IMPRESSION: Cardiomediastinal contours are stable. There is mild pulmonary edema,asymmetric to the right. There are trace bilateral pleural effusions, with bibasilar linear atelectasis. Sternotomy wires remain midline. Signed: Regan Cespedes Verified Date/Time: 08/07/2017 07:44:22 Reading Location: [facility] Radiology Reading Room [id number] 05:30:00 Test Item Value Reference Range Interpretation Comments FERRITIN (BEAKER) (test code = 361) 87 ng/mL 5-275 CBC W/PLT COUNT & AUTO [id number] 05:21:00 Test Item Value Reference Range Interpretation [...] % 20-55 L (test code = 2590) [id number] 05:11:00 Test Item Value Reference Range Interpretation Comments PHOSPHORUS (BEAKER) (test code = 3.6 mg/dL 2.3-4.7 604) [id number] 05:11:00 Test Item Value Reference Range Interpretation Comments MAGNESIUM (BEAKER) (test code = 2.0 mg/dL 1.6-2.6 627) BASIC METABOLIC [id number] 05:11:00 Test Item Value Reference Range Interpretation [...] H (BEAKER) (test code = 700) CALCIUM, [id number] 04:58:00 Test Item Value Reference Range Interpretation Comments CALCIUM IONIZED (BEAKER) (test 1.04 mmol/L 1.12-1.27 L code = 698) PH, BLOOD (BEAKER) (test code = 7.41 1810) RETICULOCYTE [id number] 04:51:00 Test Item Value Reference Range Interpretation Comments RETICULOCYTE COUNT PCT (BEAKER) (test 1.2 % 0.5-1.7 code = 575) POCT-GLUCOSE [id number] 20:49:00 Test Item Value Reference Range Interpretation Comments POC-GLUCOSE METER 202 mg/dL 70-110 H TESTED AT [facility] 6720 (BEAKER) (test code = JULIANO Osborne [facility] 1538) [address] CREATININE, RANDOM [id number] 18:38:00 Test Item Value Reference Range Interpretation Comments CREATININE URINE (BEAKER) (test 56.3 mg/dL code = 375) Reference Range: No NormalsPROTEIN, RANDOM [id number] 18:38:00 Test Item Value Reference Range Interpretation Comments PROTEIN, URINE (BEAKER) (test code 189 mg/dL 0-14 H = 1569) URINALYSIS W/ [id number] 18:34:00 Test Item Value Reference Range Interpretation [...] 516) SOURCE(BEAKER) (test code = Urine, Voided 0670) POCT-GLUCOSE [id number] 17:38:00 Test Item Value Reference Range Interpretation Comments POC-GLUCOSE METER 143 mg/dL 70-110 H TESTED AT [place] [address] (BEAKER) (test code = JULIANO [place] 1538) [address] POCT-GLUCOSE [id number] 12:30:00 Test Item Value Reference Range Interpretation Comments POC-GLUCOSE METER 218 mg/dL 70-110 H TESTED AT [place] [address] (BEAKER) (test code = JULIANO [place] 1538) [address] POCT-GLUCOSE [id number] 08:00:00 Test Item Value Reference Range Interpretation Comments POC-GLUCOSE METER 134 mg/dL 70-110 H TESTED AT [place] [address] (BEAKER) (test code = JULIANO [place] 1538) [address] CBC W/PLT COUNT & AUTO [id number] 04:23:00 Test Item Value Reference Range Interpretation [...] (BEAKER) (test code = 2801) BASIC METABOLIC [id number] 04:13:00 Test Item Value Reference Range Interpretation [...] S NOT APPLICABLE FOR DIALYSIS PATIEN TS. [id number] 04:10:00 Test Item Value Reference Range Interpretation Comments PHOSPHORUS (BEAKER) (test code = 4.9 mg/dL 2.3-4.7 H 604) [id number] 04:10:00 Test Item Value Reference Range Interpretation Comments MAGNESIUM (BEAKER) (test code = 1.4 mg/dL 1.6-2.6 L 627) [id number] 04:08:00 Test Item Value Reference Range Interpretation Comments FIBRINOGEN LEVEL (BEAKER) (test 548 mg/dl 225-434 H code = 658) [id number] 04:08:00 Test Item Value Reference Range Interpretation Comments PARTIAL THROMBOPLASTIN TIME 37.7 seconds 22.5-36.0 H (BEAKER) (test code = 760) PROTHROMBIN [id number] 04:07:00 Test Item Value Reference Range Interpretation Comments PROTIME (BEAKER) (test code = 16.2 seconds 11.7-14.7 H 759) INR (BEAKER) (test code = 370) 1.3 <=5.9 RECOMMENDED COUMADIN/WARFARIN INR THERAPY RANGESSTANDARD DOSE: 2.0 - 3.0 Includes: PROPHYLAXIS forvenous thrombosis, systemic embolization; TREATMENT for venous thrombosis and/or pulmonary embolus.HIGH RISK: Target INR is 2.5-3.5 for patients with mechanical heart valves.[id number] 16:59:00 Test Item Value Reference Range Interpretation Comments ACTIVATED CLOTTING TIME 219 sec TEST ED AT [place] [address] ([facility]) (test code = JULIANO Osborne [place] 441) [address] BASIC METABOLIC [id number] 14:25:00 Test Item Value Reference Range Interpretation [...] NOT APPLICABLE FOR DIALYSIS PATIEN TS. POCT-GLUCOSE [id number] 13:21:00 Test Item Value Reference Range Interpretation Comments POC-GLUCOSE METER 170 mg/dL 70-110 H TEST[facility] AT [place] [address] [facility] (test code = JULIANO Osborne [place] 1538) [address] POTASSIUM-STAT [id number] 13:20:00 Test Item Value Reference Range Interpretation Comments POTASSIUM (BEAKER) (test code = 4.2 meq/L 3.6-5.5 379) SODIUM NA-STAT [id number] 13:20:00 Test Item Value Reference Range Interpretation Comments SODIUM (BEAKER) (test code = 381) 133 meq/L 135-148 L HGB/HCT (H&H) - STAT [id number] 12:34:00 Test Item Value Reference Range Interpretation Comments HEMOGLOBIN (BEAKER) (test code = 10.8 g/dL 12.0-15.0 L 410) HEMATOCRIT (BEAKER) (test code = 32.0 % 36.0-45.0 L 411) POTASSIUM-STAT [id number] 08:15:00 Test Item Value Reference Range Interpretation Comments POTASSIUM (BEAKER) (test code = 4.1 meq/L 3.6-5.5 379) BLOOD GAS, [id number] 08:15:00 Test Item Value Reference Range Interpretation [...] code = 1819) 70.0 % SODIUM NA-STAT [id number] 08:15:00 Test Item Value Reference Range Interpretation Comments SODIUM (BEAKER) (test code = 381) 130 meq/L 135-148 L GLUCOSE-STAT [id number] 08:15:00 Test Item Value Reference Range Interpretation Comments GLUCOSE RANDOM (BEAKER) (test code 172 mg/dL 70-110 H = 652) HGB/HCT (H&H) - STAT [id number] 08:15:00 Test Item Value Reference Range Interpretation Comments HEMOGLOBIN (BEAKER) (test code = 8.8 g/dL 12.0-15.0 L 410) HEMATOCRIT (BEAKER) (test code = 26.0 % 36.0-45.0 L 411) BASIC METABOLIC [id number] 07:37:00 Test Item Value Reference Range Interpretation [...] PATIEN TS. CBC W/PLT COUNT & AUTO [id number] 07:20:00 Test Item Value Reference Range Interpretation [...] 0-1 PERCENT (BEAKER) (test code = 280) POCT-GLUCOSE [id number] 07:03:00 Test Item Value Reference Range Interpretation Comments POC-GLUCOSE METER 186 mg/dL 70-110 H TESTED AT [facility] 6720 (BEAKER) (test code = JULIANO RUTH [place] 1538) [address] B-TYPE NATRIURETIC FACTOR (BNP)2017-06-10 12:44:00 Test Item Value Reference Range Interpretation Comments B-TYPE NATRIURETIC PEPTIDE 1264 pg/mL 0-100 H (BEAKER) (test code = 700) [id number] 12:36:00 Test Item Value Reference Range Interpretation Comments MAGNESIUM (BEAKER) (test code = 1.6 mg/dL 1.6-2.6 627) BASIC METABOLIC [id number] 12:36:00 Test Item Value Reference Range Interpretation [...] NOT APPLICABLE FOR DIALYSIS PATIEN TS. POCT-GLUCOSE [id number] 12:04:00 Test Item Value Reference Range Interpretation Comments POC-GLUCOSE METER 274 mg/dL 70-110 H TESTED AT [facility] 6720 (BEAKER) (test code = [facility] 1538) [address] POCT-GLUCOSE [id number] 07:21:00 Test Item Value Reference Range Interpretation Comments POC-GLUCOSE METER 137 mg/dL 70-110 H TESTED AT [facility] 6720 [facility] (test code = [facility] 1538) [address] BASIC METABOLIC [id number] 05:10:00 Test Item Value Reference Range Interpretation [...] 0-0 (BEAKER) (test code = 413) POCT-GLUCOSE [id number] 21:23:00 Test Item Value Reference Range Interpretation Comments POC-GLUCOSE METER 240 mg/dL 70-110 H TESTED AT [facility] 6720 ([facility]) (test code = JULIANO Osborne [place] 1538) [address] POCT-GLUCOSE [id number] 16:42:00 Test Item Value Reference Range Interpretation Comments POC-GLUCOSE METER 234 mg/dL 70-110 H TESTED AT [facility] 6720 ([facility]) (test code = JULIANO Osborne [place] 1538) [address] POCT-GLUCOSE [id number] 13:22:00 Test Item Value Reference Range Interpretation Comments POC-GLUCOSE METER 166 mg/dL 70-110 H TESTED AT [facility] 6720 ([facility]) (test code = JULIANO Osborne [place] 1538) [address] RAD, CHEST, 1 VIEW, NON [id number] 09:43:00Reason for exam:->s/p ACBShould this be performed [...] Lynda Ringepemily Verified Date/Time: 05/31/2017 09:43:30 ReadingLocation: [facility] B1 C013X Ortho Consult Reading Room POCT-GLUCOSE [id number] 06:57:00 Test Item Value Reference Range Interpretation Comments POC-GLUCOSE METER 136 mg/dL 70-110 H TESTED AT [facility] 6720 ([facility]) (test code = JULIANO Osborne [facility] 1538) [address] CALCIUM, [id number] 06:41:00 Test Item Value Reference Range Interpretation Comments CALCIUM IONIZED (BEAKER) (test 1.10 mmol/L 1.12-1.27 L code = 698) PH, BLOOD (BEAKER) (test code = 7.42 1810) [id number] 06:17:00 Test Item Value Reference Range Interpretation Comments PHOSPHORUS (BEAKER) (test code = 3.3 mg/dL 2.3-4.7 604) [id number] 06:17:00 Test Item Value Reference Range Interpretation Comments MAGNESIUM (BEAKER) (test code = 1.8 mg/dL 1.6-2.6 627) BASIC METABOLIC [id number] 06:17:00 Test Item Value Reference Range Interpretation [...] PATIEN TS. CBC W/PLT COUNT & AUTO [id number] 05:07:00 Test Item Value Reference Range Interpretation [...] PERCENT (BEAKER) (test code = 2801) POCT-GLUCOSE [id number] 20:56:00 Test Item Value Reference Range Interpretation Comments POC-GLUCOSE METER 196 mg/dL 70-110 H TESTED AT [facility] 6720 [facility] (test code = [facility] 1538) [address] POCT-GLUCOSE [id number] 16:42:00 Test Item Value Reference Range Interpretation Comments POC-GLUCOSE METER 196 mg/dL 70-110 H TESTED AT [facility] 67 ([facility]) (test code = [facility] 1538) [address] POCT-GLUCOSE [id number] 11:45:00 Test Item Value Reference Range Interpretation Comments POC-GLUCOSE METER 215 mg/dL 70-110 H TESTED AT [place] [address] ([facility] (test code = [facility] 1538) [address] RAD, CHEST, 1 VIEW, NON [id number] 11:15:00Reason for exam:->s/p ACBShould this be performed at the bedside?->YesFINAL REPORT Chest one view compared to May 28, 2017 Discussion: Airspace opacities are seen in both lower lung regions, probably atelectasis. Correlate clinically for infection. I could not exclude small effusions. No pneumothorax. Upper lungs clear. Signed: Jeannette Nava MDReport Verified Date/Time: 05/30/2017 11:15:07 Reading Location: [facility] Reading Room CALCIUM, [id number] 09:21:00 Test Item Value Reference Range Interpretation Comments CALCIUM IONIZED (BEAKER) (test 1.11 mmol/L 1.12-1.27 L code = 698) PH, BLOOD (BEAKER) (test code = 7.36 1810) BASIC METABOLIC [id number] 07:37:00 Test Item Value Reference Range Interpretation [...] S NOT APPLICABLE FOR DIALYSIS PATIEN TS. [id number] 07:28:00 Test Item Value Reference Range Interpretation Comments PHOSPHORUS (BEAKER) (test code = 3.8 mg/dL 2.3-4.7 604) [id number] 07:28:00 Test Item Value Reference Range Interpretation Comments MAGNESIUM (BEAKER) (test code = 1.9 mg/dL 1.6-2.6 627) CBC W/PLT COUNT & AUTO [id number] 07:26:00 Test Item Value Reference Range Interpretation [...] PERCENT (BEAKER) (test code = 2801) POCT-GLUCOSE [id number] 07:21:00 Test Item Value Reference Range Interpretation Comments POC-GLUCOSE METER 146 mg/dL 70-110 H TESTED AT [place] [address] ([facility]) (test code = [facility] 1538) [address] POCT-GLUCOSE [id number] 22:02:00 Test Item Value Reference Range Interpretation Comments POC-GLUCOSE METER 201 mg/dL 70-110 H TESTED AT [place] [address] ([facility]) (test code = [facility] 1538) [address] POCT-GLUCOSE [id number] 18:27:00 Test Item Value Reference Range Interpretation Comments POC-GLUCOSE METER 240 mg/dL 70-110 H TESTED AT [place] [address] ([facility]) (test code = [facility] 1538) [address] POCT-GLUCOSE [id number] 12:13:00 Test Item Value Reference Range Interpretation Comments POC-GLUCOSE METER 193 mg/dL 70-110 H TESTED AT [place] [address] ([facility]) (test code = [facility] 1538) [address] POCT-GLUCOSE [id number] 09:02:00 Test Item Value Reference Range Interpretation Comments POC-GLUCOSE METER 132 mg/dL 70-110 H TESTED AT [place] [address] ([facility]) (test code = [facility] 1538) [address] CALCIUM, [id number] 05:42:00 Test Item Value Reference Range Interpretation Comments CALCIUM IONIZED ([facility]) (test 1.12 mmol/L 1.12-1.27 code = 698) PH, BLOOD ([facility]) (test code = 7.34 1810) COMPREHENSIVE METABOLIC [id number] 05:33:00 Test Item Value Reference Range Interpretation Comments TOTAL PROTEIN 5.9 gm/dL 6.0-8.3 L ([facility]) (test code = 770) ALBUMIN ([facility]) 2.7 g/dL 3.5-5.0 L (test code = 1145) ALKALINE PHOSPHATASE 130 U/L 40-150 ([facility]) (test code = 346) BILIRUBIN TOTAL 0.3 mg/dL 0.2-1.2 ([facility]) (test code = 377) SODIUM ([facility]) (test 135 meq/L 136-145 L [...] S NOT APPLICABLE FOR DIALYSIS PATIEN TS. [id number] 05:32:00 Test Item Value Reference Range Interpretation Comments PHOSPHORUS (BEAKER) (test code = 3.6 mg/dL 2.3-4.7 604) [id number] 05:32:00 Test Item Value Reference Range Interpretation Comments MAGNESIUM (BEAKER) (test code = 2.2 mg/dL 1.6-2.6 627) CBC W/PLT COUNT & AUTO [id number] 05:01:00 Test Item Value Reference Range Interpretation [...] PERCENT (BEAKER) (test code = 2801) POCT-GLUCOSE [id number] 21:04:00 Test Item Value Reference Range Interpretation Comments POC-GLUCOSE METER 165 mg/dL 70-110 H TESTED AT [facility] 6720 ([facility] ([facility] = [facility] 1538) [address] POCT-GLUCOSE [id number] 17:30:00 Test Item Value Reference Range Interpretation Comments POC-GLUCOSE METER 236 mg/dL 70-110 H TESTED AT [facility] 6720 ([facility] (test code = JULIANO Osborne [facility] 1538) [address] RAD, CHEST, 1 VIEW, NON [id number] 13:53:00Reason for exam:->assess for ill-defined opacityShould this [...] [place]away Verified Date/Time: 05/28/2017 13:53:03 Reading Location: [address] Radiology Reading Room POCT-GLUCOSE [id number] 11:53:00 Test Item Value Reference Range Interpretation Comments POC-GLUCOSE METER 215 mg/dL 70-110 H TESTED AT [facility] 6720 (BEAKER) (test code = JULIANO Osborne [facility] 1538) [address] POCT-GLUCOSE [id number] 08:32:00 Test Item Value Reference Range Interpretation Comments POC-GLUCOSE METER 168 mg/dL 70-110 H TESTED AT [facility] 6720 (BEAKER) (test code = JULIANO Osborne [facility] 1538) [address] CALCIUM, [id number] 05:44:00 Test Item Value Reference Range Interpretation Comments CALCIUM IONIZED (BEAKER) (test 1.09 mmol/L 1.12-1.27 L code = 698) PH, BLOOD (BEAKER) (test code = 7.38 1810) [id number] 05:44:00 Test Item Value Reference Range Interpretation Comments PHOSPHORUS (BEAKER) (test code = 3.5 mg/dL 2.3-4.7 604) [id number] 05:44:00 Test Item Value Reference Range Interpretation Comments MAGNESIUM (BEAKER) (test code = 1.9 mg/dL 1.6-2.6 627) BASIC METABOLIC [id number] 05:44:00 Test Item Value Reference Range Interpretation [...] PATIEN TS. CBC W/PLT COUNT & AUTO [id number] 05:05:00 Test Item Value Reference Range Interpretation [...] PERCENT (BEAKER) (test code = 2801) POCT-GLUCOSE [id number] 21:03:00 Test Item Value Reference Range Interpretation Comments POC-GLUCOSE METER 173 mg/dL 70-110 H TESTED AT [place] [address] ([facility]) (test code = [facility] Dylon [facility] 1538) [address] [id number] 18:15:00 Test Item Value Reference Range Interpretation Comments ACTIVATED CLOTTING TIME 147 sec TEST ED AT [place] [address] ([facility]) (test code = [facility] Dylon [facility] 441) [address] [id number] 18:15:00 Test Item Value Reference Range Interpretation Comments ACTIVATED CLOTTING TIME 246 sec TEST ED AT [place] [address] ([facility]) (test code = [facility] 441) [address] POCT-GLUCOSE [id number] 12:39:00 Test Item Value Reference Range Interpretation Comments POC-GLUCOSE METER 219 mg/dL 70-110 H TESTED AT [place] [address] ([facility]) (test code = [facility] 1538) [address] RAD, CHEST, 1 VIEW, NON [id number] 10:11:00Reason for exam:->pl effusionShould this be performed at the bedside?->YesFINAL REPORT Chest one view compared to May 26 Discussion: There is cardiac prominence. Upper lungs are clear. Ill-defined basilar densities are similar probably atelectasis. No gross effusion or pneumothorax with bilateral chest tubes in place. Signed: Jeannette Navaeport Verified Date/Time: 05/27/2017 10:11:44 Reading Location: [facility] Radiology Reading Room POCT-GLUCOSE METER 2017-05-27 07:05:00 Test Item Value Reference Range Interpretation Comments POC-GLUCOSE METER 167 mg/dL 70-110 H TESTED AT [facility] 6720 (BEAKER) (test code = JULIANO Osborne [facility] 1538) [address] CALCIUM, [id number] 06:20:00 Test Item Value Reference Range Interpretation Comments CALCIUM IONIZED (BEAKER) (test 0.98 mmol/L 1.12-1.27 L code = 698) PH, BLOOD (BEAKER) (test code = 7.50 1810) [id number] 04:56:00 Test Item Value Reference Range Interpretation Comments PHOSPHORUS (BEAKER) (test code = 2.6 mg/dL 2.3-4.7 604) [id number] 04:56:00 Test Item Value Reference Range Interpretation Comments MAGNESIUM (BEAKER) (test code = 2.0 mg/dL 1.6-2.6 627) BASIC METABOLIC [id number] 04:56:00 Test Item Value Reference Range Interpretation [...] PATIEN TS. CBC W/PLT COUNT & AUTO [id number] 04:36:00 Test Item Value Reference Range Interpretation [...] 417) IMMATURE GRANULOCYTES-RELATIVE 1 % 0-1 PERCENT ([facility]) (test code = 2801) POCT-GLUCOSE [id number] 21:29:00 Test Item Value Reference Range Interpretation Comments POC-GLUCOSE METER 147 mg/dL 70-110 H TESTED AT [place] [address] ([facility]) (test code = [facility] 1538) [address] POCT-GLUCOSE [id number] 17:51:00 Test Item Value Reference Range Interpretation Comments POC-GLUCOSE METER 224 mg/dL 70-110 H TESTED AT [place] [address] ([facility]) (test code = [facility] 1538) [address] POCT-GLUCOSE [id number] 13:53:00 Test Item Value Reference Range Interpretation Comments POC-GLUCOSE METER 182 mg/dL 70-110 H TESTED AT [place] [address] ([facility]) (test code = [facility] 1538) [address] RAD, CHEST, 1 VIEW, NON [id number] 08:44:00Reason for exam:->pl effusionShould this be performed [...] tube. No other significant change. Signed: Olaf Ramirez MDReport Verified Date/Time: 05/26/2017 08:44:25 Reading Location: [address] Radiology Reading Room POCT- GLUCOSE [id number] 07:43:00 Test Item Value Reference Range Interpretation Comments POC-GLUCOSE METER 113 mg/dL 70-110 H TESTED AT [facility] 6720 (BEAKER) (test code = JULIANO RUTH [place] 1538) [address] CALCIUM, [id number] 06:31:00 Test Item Value Reference Range Interpretation Comments CALCIUM IONIZED (BEAKER) (test 1.07 mmol/L 1.12-1.27 L code = 698) PH, BLOOD (BEAKER) (test code = 7.38 1810) [id number] 04:51:00 Test Item Value Reference Range Interpretation Comments PHOSPHORUS (BEAKER) (test code = 3.2 mg/dL 2.3-4.7 604) [id number] 04:51:00 Test Item Value Reference Range Interpretation Comments MAGNESIUM (BEAKER) (test code = 2.1 mg/dL 1.6-2.6 627) BASIC METABOLIC [id number] 04:51:00 Test Item Value Reference Range Interpretation [...] PATIEN TS. CBC W/PLT COUNT & AUTO [id number] 04:27:00 Test Item Value Reference Range Interpretation [...] PERCENT (BEAKER) (test code = 2801) POCT-GLUCOSE [id number] 23:48:00 Test Item Value Reference Range Interpretation Comments POC-GLUCOSE METER 123 mg/dL 70-110 H TESTED AT [facility] 6720 (BEAKER) (test code = JULIANO Osborne [place] 1538) [address] POCT-GLUCOSE [id number] 16:46:00 Test Item Value Reference Range Interpretation Comments POC-GLUCOSE METER 178 mg/dL 70-110 H TESTED AT [facility] 6720 (BEAKER) (test code = JULIANO Osborne [place] 1538) [address] BASIC METABOLIC [id number] 05:53:00 Test Item Value Reference Range Interpretation [...] S NOT APPLICABLE FOR DIALYSIS PATIEN TS. [id number] 05:52:00 Test Item Value Reference Range Interpretation Comments PHOSPHORUS (BEAKER) (test code = 4.2 mg/dL 2.3-4.7 604) [id number] 05:52:00 Test Item Value Reference Range Interpretation Comments MAGNESIUM (BEAKER) (test code = 2.3 mg/dL 1.6-2.6 627) CALCIUM, [id number] 05:27:00 Test Item Value Reference Range Interpretation Comments CALCIUM IONIZED (BEAKER) (test 1.12 mmol/L 1.12-1.27 code = 698) PH, BLOOD (BEAKER) (test code = 7.38 1810) CBC W/PLT COUNT & AUTO [id number] 05:07:00 Test Item Value Reference Range Interpretation [...] = 2801) RAD, CHEST, 1 VIEW, NON [id number] 04:45:00Reason for exam:->pl effusionShould this be performed at the bedside?->YesFINAL REPORT RAD, CHEST, 1 VIEW, NON DEPT INDICATION: pl effusion COMPARISON:Prior day's exam FINDINGS: Portable frontal view of the chest. IMPRESSION: Support Lines: Stable.Lungs and pleura: Unchanged airspace and pleural opacities. No pneumothorax.Heart and mediastinum: Stable contours. Stable surgical changes.Additional findings: None. Signed: JR Boswell Robert MDReport Verified Date/Time: 05/25/2017 04:45:08 Reading Location: [address] Body Reading Room POCT-GLUCOSE [id number] 01:52:00 Test Item Value Reference Range Interpretation Comments POC-GLUCOSE METER 126 mg/dL 70-110 H TESTED AT [place] [address] ([facility]) (test code = JULIANO RUTH [place] 1538) [address] POCT-GLUCOSE [id number] 13:07:00 Test Item Value Reference Range Interpretation Comments POC-GLUCOSE METER 118 mg/dL 70-110 H TESTED AT [facility] 6720 ([facility]) (test code = JULIANO Osborne [facility] 1538) [address] BRONCHIAL CULTURE + GRAM [id number] 11:35:00 Test Item Value Reference Range Interpretation Comments CULTURE ([facility]) (test code = 1095) Amikacin [...] <1+ gram (BEAKER) (test code = positive 234263) cocci in pairs GRAM STAIN RESULT 1+ gram (BEAKER) (test code = variable rods 229637) 1+ Normal respiratory todd presentRAD, CHEST, 1 VIEW, NON [id number] 06:50:00Reason for exam:->pl effusionShould this be performed at the bedside?->YesFINAL REPORT RAD, CHEST, 1 VIEW, NON DEPT INDICATION: pl effusion COMPARISON:Prior day's exam FINDINGS: Portable frontal view of the chest. IMPRESSION: Support Lines: Stable.Lungs and pleura: Unchanged airspace and pleural opacities. No pneumothorax.Heart and mediastinum: Stable contours. Stable surgical changes.Additional findings: None. Signed: JR Boswell Robert MDReport Verified Date/Time: 05/24/2017 06:50:08 Reading Location: [facility] C013Y CT Body Reading Room BASIC METABOLIC [id number] 04:19:00 Test Item Value Reference Range Interpretation [...] NOT APPLICABLE FOR DIALYSIS PATIEN TS. CALCIUM, [id number] 04:16:00 Test Item Value Reference Range Interpretation Comments CALCIUM IONIZED (BEAKER) (test 1.06 mmol/L 1.12-1.27 L code = 698) PH, BLOOD (BEAKER) (test code = 7.40 1810) [id number] 04:11:00 Test Item Value Reference Range Interpretation Comments PHOSPHORUS (BEAKER) (test code = 6.0 mg/dL 2.3-4.7 H 604) [id number] 04:11:00 Test Item Value Reference Range Interpretation Comments MAGNESIUM (BEAKER) (test code = 2.4 mg/dL 1.6-2.6 627) CBC W/PLT COUNT & AUTO [id number] 03:50:00 Test Item Value Reference Range Interpretation [...] PERCENT (BEAKER) (test code = 2801) POCT-GLUCOSE [id number] 20:45:00 Test Item Value Reference Range Interpretation Comments POC-GLUCOSE METER 143 mg/dL 70-110 H TESTED AT [facility] 6720 (BEAKER) (test code = JULIANO REYEZ 1538) [address] POCT-GLUCOSE [id number] 20:45:00 Test Item Value Reference Range Interpretation Comments POC-GLUCOSE METER 145 mg/dL 70-110 H TESTED AT [facility] 6720 (BEAKER) (test code = JULIANO RUTH [place] 1538) [address] [id number] 13:37:00 Test Item Value Reference Range Interpretation Comments PREALBUMIN (BEAKER) 10 mg/dL 14-45 L Specimen slightly (test code = 586) hemolyzed OXYGEN SATURATION, [id number] 12:31:00 Test Item Value Reference Range Interpretation Comments O2 SATURATION (MEASURED) (BEAKER) 94.5 % (test code = 1455) [id number] 11:02:00 Test Item Value Reference Range Interpretation Comments PREALBUMIN (BEAKER) (test code = 10 mg/dL 14-45 L 586) RAD, CHEST, 1 VIEW, NON [id number] 05:14:00while patient is intubated or has chest [...] C013Y CT Body Reading Room BASIC METABOLIC [id number] 03:48:00 Test Item Value Reference Range Interpretation [...] S NOT APPLICABLE FOR DIALYSIS PATIEN TS. [id number] 03:46:00 Test Item Value Reference Range Interpretation Comments MAGNESIUM (BEAKER) 2.4 mg/dL 1.6-2.6 Specimen slightly (test code = 627) hemolyzed [id number] 03:46:00 Test Item Value Reference Range Interpretation Comments PHOSPHORUS (BEAKER) 6.5 mg/dL 2.3-4.7 H Specimen slightly (test code = 604) hemolyzed CBC W/PLT COUNT & AUTO [id number] 03:26:00 Test Item Value Reference Range Interpretation [...] (BEAKER) (test code = 2801) BLOOD GAS, [id number] 03:18:00 Test Item Value Reference Range Interpretation [...] (test code = 1819) 36.0 % CALCIUM, [id number] 16:32:00 Test Item Value Reference Range Interpretation Comments CALCIUM IONIZED (BEAKER) (test 1.11 mmol/L 1.12-1.27 L code = 698) PH, BLOOD (BEAKER) (test code = 7.39 1810) BASIC METABOLIC [id number] 15:43:00 Test Item Value Reference Range Interpretation [...] NOT APPLICABLE FOR DIALYSIS PATIEN TS. POCT-GLUCOSE [id number] 12:53:00 Test Item Value Reference Range Interpretation Comments POC-GLUCOSE METER 118 mg/dL 70-110 H TESTED AT [facility] 6720 (BEAKER) (test code = JULIANO RUTH [place] 1538) [address] BLOOD GAS, [id number] 10:42:00 Test Item Value Reference Range Interpretation [...] (test code = 1819) 40.0 % POCT-GLUCOSE [id number] 06:46:00 Test Item Value Reference Range Interpretation Comments POC-GLUCOSE METER 106 mg/dL 70-110 TESTED AT [facility] 6720 (BEAKER) (test code = JULIANO RUTH [place] 1538) [address] RAD, CHEST, 1 VIEW, NON [id number] 05:05:00while patient is intubated or has chest [...] [place] Verified Date/Time: 05/22/2017 05:05:00 Reading Location: [address] Body ReadingRoom BASIC METABOLIC [id number] 05:00:00 Test Item Value Reference Range Interpretation [...] S NOT APPLICABLE FOR DIALYSIS PATIEN TS. [id number] 04:41:00 Test Item Value Reference Range Interpretation Comments PHOSPHORUS (BEAKER) (test code = 6.4 mg/dL 2.3-4.7 H 604) [id number] 04:41:00 Test Item Value Reference Range Interpretation Comments MAGNESIUM (BEAKER) (test code = 2.6 mg/dL 1.6-2.6 627) CALCIUM, [id number] 04:26:00 Test Item Value Reference Range Interpretation Comments CALCIUM IONIZED (BEAKER) (test 1.09 mmol/L 1.12-1.27 L code = 698) PH, BLOOD (BEAKER) (test code = 7.40 1810) OXYGEN SATURATION, [id number] 04:25:00 Test Item Value Reference Range Interpretation Comments O2 SATURATION (MEASURED) (BEAKER) 77.0 % (test code = 1455) CBC W/PLT COUNT & AUTO [id number] 04:17:00 Test Item Value Reference Range Interpretation [...] % 0-1 PERCENT (BEAKER) (test code = 2806) LACTIC ACID, ARTERIAL, WHOLE [id number] 00:07:00 Test Item Value Reference Range Interpretation Comments LACTATE BLOOD 1.0 mmol/L 0.5-2.2 Specimen sligh tly ARTERIAL (2) (BEAKER) hemoly zed (test code = 2874) Effective 08/02/2015: Units/Reference Range ChangeNew: 0.5-2.2 mmol/L Previous: 5-20 mg/dLPOCT-GLUCOSE [id number] 23:47:00 Test Item Value Reference Range Interpretation Comments POC-GLUCOSE METER 180 mg/dL 70-110 H TESTED AT [facility] 6720 (BEAKER) (test code = JULIANO REYEZ 1538) [address] BLOOD GAS, [id number] 23:46:00 Test Item Value Reference Range Interpretation [...] code = 1819) 100.0 % SODIUM NA-STAT [id number] 23:46:00 Test Item Value Reference Range Interpretation Comments SODIUM (BEAKER) (test code = 381) 134 meq/L 135-148 L GLUCOSE-STAT [id number] 23:46:00 Test Item Value Reference Range Interpretation Comments GLUCOSE RANDOM (BEAKER) (test code 119 mg/dL 70-110 H = 652) HGB/HCT (H&H) - STAT [id number] 23:46:00 Test Item Value Reference Range Interpretation Comments HEMOGLOBIN (BEAKER) (test code = 8.8 g/dL 12.0-15.0 L 410) HEMATOCRIT (BEAKER) (test code = 26.0 % 36.0-45.0 L 411) OXYGEN SATURATION, [id number] 23:45:00 Test Item Value Reference Range Interpretation Comments O2 SATURATION (MEASURED) (BEAKER) 68.1 % (test code = 1455) POTASSIUM-STAT [id number] 23:45:00 Test Item Value Reference Range Interpretation Comments POTASSIUM (BEAKER) (test code = 5.5 meq/L 3.6-5.5 379) POCT-GLUCOSE [id number] 20:58:00 Test Item Value Reference Range Interpretation Comments POC-GLUCOSE METER 133 mg/dL 70-110 H TESTED AT [facility] 67[address] [facility] (test code = [place] 1538) [address] POCT-GLUCOSE [id number] 17:58:00 Test Item Value Reference Range Interpretation Comments POC-GLUCOSE METER 210 mg/dL 70-110 H TESTED AT [facility] 67[address] ([facility] (test code = JULIANO Osborne [facility] 1538) [address] POCT-GLUCOSE [id number] 17:58:00 Test Item Value Reference Range Interpretation Comments POC-GLUCOSE METER 211 mg/dL 70-110 H TESTED AT [place] [address] ([facility] (test code = JULIANO Osborne [place] 1538) [address] POCT-GLUCOSE [id number] 17:58:00 Test Item Value Reference Range Interpretation Comments POC-GLUCOSE METER 232 mg/dL 70-110 H TESTED AT [place] [address] (BEAKER) (test code = JULIANO Osborne [place] 1538) [address] POCT-GLUCOSE [id number] 17:58:00 Test Item Value Reference Range Interpretation Comments POC-GLUCOSE METER 262 mg/dL 70-110 H TESTED AT [place] [address] (BEAKER) (test code = JULIANO Osborne [facility] 1538) [address] BLOOD GAS, [id number] 17:01:00 Test Item Value Reference Range Interpretation [...] (test code = 1819) 60.0 % POTASSIUM-STAT [id number] 17:00:00 Test Item Value Reference Range Interpretation Comments POTASSIUM (BEAKER) (test code = 4.8 meq/L 3.6-5.5 379) POCT-GLUCOSE [id number] 15:52:00 Test Item Value Reference Range Interpretation Comments POC-GLUCOSE METER 267 mg/dL 70-110 H TESTED AT [place] [address] (BEAKER) (test code = JULIANO Osborne [place] 1538) [address] POCT-GLUCOSE [id number] 14:42:00 Test Item Value Reference Range Interpretation Comments POC-GLUCOSE METER 231 mg/dL 70-110 H TESTED AT [facility] 6720 (BEAKER) (test code = [place] 1538) [address] BODY FLUID CELL COUNT WITH [id number] 14:41:00 Test Item Value Reference Range Interpretation [...] Tube (test code = 2873) BASIC METABOLIC [id number] 14:11:00 Test Item Value Reference Range Interpretation [...] S NOT APPLICABLE FOR DIALYSIS PATIEN TS. [id number] 14:08:00 Test Item Value Reference Range Interpretation Comments PHOSPHORUS (BEAKER) (test code = 7.2 mg/dL 2.3-4.7 H 604) [id number] 14:08:00 Test Item Value Reference Range Interpretation Comments MAGNESIUM (BEAKER) (test code = 2.6 mg/dL 1.6-2.6 627) POCT-GLUCOSE [id number] 12:49:00 Test Item Value Reference Range Interpretation Comments POC-GLUCOSE METER 224 mg/dL 70-110 H TESTED AT [facility] 67 (ROBERT) (test code = JULIANO Osborne [facility] 1538) [address] POCT-GLUCOSE [id number] 12:49:00 Test Item Value Reference Range Interpretation Comments POC-GLUCOSE METER 248 mg/dL 70-110 H TESTED AT [place] [address] (ROBERT) (test code = JULIANO Osborne [facility] 1538) [address] RAD, CHEST, 1 VIEW, NON [id number] 12:32:00Reason for exam:->re-intubationShould this be performed at [...] pneumothorax is grossly unchanged. Signed: [facility] Verified Date/Time: 05/21/2017 12:32:08 Reading Location: [facility] Radiology Reading Room POTASSIUM-STAT [id number] 12:28:00 Test Item Value Reference Range Interpretation Comments POTASSIUM (BEAKER) (test code = 5.5 meq/L 3.6-5.5 379) BLOOD GAS, [id number] 12:28:00 Test Item Value Reference Range Interpretation [...] code = 1819) 100.0 % BLOOD GAS, [id number] 10:53:00 Test Item Value Reference Range Interpretation [...] 36.0 % RAD, CHEST, 1 VIEW, NON [id number] 08:46:00while patient is intubated or has chest [...] apical pneumothorax is suspected. Signed: Mona White MDReport Verified Date/Time: 05/21/2017 08:46:27 Reading Location: [facility] Radiology Reading Room BLOOD GAS, [id number] 05:41:00 Test Item Value Reference Range Interpretation [...] (BEAKER) (test code = 1819) 40 CALCIUM, [id number] 04:35:00 Test Item Value Reference Range Interpretation Comments CALCIUM IONIZED (BEAKER) (test 1.13 mmol/L 1.12-1.27 code = 698) PH, BLOOD (BEAKER) (test code = 7.32 1810) BLOOD GAS, [id number] 04:28:00 Test Item Value Reference Range Interpretation [...] (BEAKER) (test code = 1819) 40.0 % [id number] 04:20:00 Test Item Value Reference Range Interpretation Comments PHOSPHORUS (BEAKER) (test code = 6.2 mg/dL 2.3-4.7 H 604) [id number] 04:20:00 Test Item Value Reference Range Interpretation Comments MAGNESIUM (BEAKER) (test code = 2.4 mg/dL 1.6-2.6 627) HEPATIC FUNCTION [id number] 04:20:00 Test Item Value Reference Range Interpretation [...] = 11 U/L 6-55 347) BASIC METABOLIC [id number] 04:20:00 Test Item Value Reference Range Interpretation [...] APPLICABLE FOR DIALYSIS PATIEN TS. OXYGEN SATURATION, [id number] 04:18:00 Test Item Value Reference Range Interpretation Comments O2 SATURATION (MEASURED) (BEAKER) 68.0 % (test code = 1455) LACTIC ACID, ARTERIAL, WHOLE [id number] 04:12:00 Test Item Value Reference Range Interpretation Comments LACTATE BLOOD ARTERIAL (2) 1.0 mmol/L 0.5-2.2 (BEAKER) (test code = 2874) Effective 08/02/2015: Units/Reference Range ChangeNew: 0.5-2.2 mmol/L Previous: 5-20 mg/dLCBC W/PLT COUNT & AUTO [id number] 04:00:00 Test Item Value Reference Range Interpretation [...] (BEAKER) (test code = 2801) BLOOD GAS, [id number] 00:06:00 Test Item Value Reference Range Interpretation [...] (BEAKER) (test code = 1819) 40.0 % [id number] 18:55:00 Test Item Value Reference Range Interpretation Comments PHOSPHORUS (BEAKER) (test code = 4.8 mg/dL 2.3-4.7 H 604) [id number] 18:55:00 Test Item Value Reference Range Interpretation Comments MAGNESIUM (BEAKER) (test code = 2.3 mg/dL 1.6-2.6 627) BASIC METABOLIC [id number] 18:55:00 Test Item Value Reference Range Interpretation [...] DIALYSIS PATIEN TS. LACTIC ACID, ARTERIAL, WHOLE [id number] 18:53:00 Test Item Value Reference Range Interpretation Comments LACTATE BLOOD 0.9 mmol/L 0.5-2.2 Specimen sligh tly ARTERIAL (2) (BEAKER) hemoly zed (test code = 2874) Effective 08/02/2015: Units/Reference Range ChangeNew: 0.5-2.2 mmol/L Previous: 5-20 mg/dLRAD, CHEST, 1 VIEW, NON [id number] 18:44:00Reason for exam:- >postop cardiacShould this be [...] MDReport Verified Date/Time: 05/20/2017 18:44:30 Reading Location: [facility] C013W Consult Reading Room Electronically signed by: MIGUEL LI M.D. on05/20/2017 06:44 PMCBC W/PLT COUNT & AUTO [id number] 18:38:00 Test Item Value Reference Range Interpretation [...] (BEAKER) (test code = 2801) OXYGEN SATURATION, [id number] 18:36:00 Test Item Value Reference Range Interpretation Comments O2 SATURATION (MEASURED) (BEAKER) 72.5 % (test code = 1455) From distal port of IJ central venous catheterSODIUM NA-STAT [id number] 18:30:00 Test Item Value Reference Range Interpretation Comments SODIUM (BEAKER) (test code = 381) 132 meq/L 135-148 L HGB/HCT (H&H) - STAT [id number] 18:30:00 Test Item Value Reference Range Interpretation Comments HEMOGLOBIN (BEAKER) (test code = 9.4 g/dL 12.0-15.0 L 410) HEMATOCRIT (BEAKER) (test code = 28.0 % 36.0-45.0 L 411) GLUCOSE-STAT [id number] 18:30:00 Test Item Value Reference Range Interpretation Comments GLUCOSE RANDOM (BEAKER) (test code 159 mg/dL 70-110 H = 652) BLOOD GAS, [id number] 18:30:00 Test Item Value Reference Range Interpretation [...] (test code = 1819) 60.0 % CALCIUM, [id number] 18:30:00 Test Item Value Reference Range Interpretation Comments CALCIUM IONIZED (BEAKER) (test 0.94 mmol/L 1.12-1.27 L code = 698) PH, BLOOD (BEAKER) (test code = 7.34 1810) POTASSIUM-STAT [id number] 18:28:00 Test Item Value Reference Range Interpretation [...] (test 0.0 % 0.0-5.0 code = 1414) [id number] 17:53:00 Test Item Value Reference Range Interpretation Comments ACTIVATED CLOTTING TIME 103 sec TEST ED AT [place] [address] ([facility] (test code = [place] [address]) [address] [id number] 17:53:00 Test Item Value Reference Range Interpretation Comments ACTIVATED CLOTTING TIME 466 sec TEST ED AT [place] [address] (BEAKER) (test code = [place] 441) [address] [id number] 17:53:00 Test Item Value Reference Range Interpretation Comments ACTIVATED CLOTTING TIME 543 sec TEST ED AT [place] [address] ([facility]) (test code = [place] [address]) [address] [id number] 17:53:00 Test Item Value Reference Range Interpretation Comments ACTIVATED CLOTTING TIME 549 sec TEST ED AT [place] [address] ([facility]) (test code = [place] 441) [address] [id number] 17:53:00 Test Item Value Reference Range Interpretation Comments ACTIVATED CLOTTING TIME 632 sec TEST ED AT [place] [address] ([facility]) (test code = [place] 441) [address] [id number] 17:53:00 Test Item Value Reference Range Interpretation Comments ACTIVATED CLOTTING TIME 494 sec TEST ED AT [place] [address] ([facility]) (test code = [place] 441) [address] [id number] 17:53:00 Test Item Value Reference Range Interpretation Comments ACTIVATED CLOTTING TIME 587 sec TEST ED AT [place] [address] ([facility]) (test code = [place] 441) [address] [id number] 17:53:00 Test Item Value Reference Range Interpretation Comments ACTIVATED CLOTTING TIME 626 sec TEST ED AT [place] [address] ([facility]) (test code = [place] 441) [address] [id number] 17:52:00 Test Item Value Reference Range Interpretation Comments ACTIVATED CLOTTING TIME 808 sec TEST ED AT [place] [address] ([facility]) (test code = [place] 441) [address] [id number] 16:54:00 Test Item Value Reference Range Interpretation Comments PARTIAL THROMBOPLASTIN TIME 40.2 seconds 22.5-36.0 H ([facility]) (test code = 760) [id number] 16:53:00 Test Item Value Reference Range Interpretation Comments FIBRINOGEN LEVEL ([facility]) (test 306 mg/dl 225-434 code = 658) PROTHROMBIN [id number] 16:50:00 Test Item Value Reference Range Interpretation Comments PROTIME ([facility]) (test code = 19.6 seconds 11.7-14.7 H 759) INR ([facility]) (test code = 370) 1.7 <=5.9 RECOMMENDED COUMADIN/WARFARIN INR THERAPY RANGESSTANDARD DOSE: 2.0 - 3.0 Includes: PROPHYLAXIS forvenous thrombosis, systemic embolization; TREATMENT for venous thrombosis and/or pulmonary embolus.HIGH RISK: Target INR is 2.5-3.5 for patients with mechanical heart valves.PLATELET [id number] 16:45:00 Test Item Value Reference Range Interpretation Comments PLATELET COUNT (BEAKER) (test 136 K/CU MM 150-450 L code = 756) POTASSIUM-STAT [id number] 16:15:00 Test Item Value Reference Range Interpretation Comments POTASSIUM (BEAKER) (test code = 4.9 meq/L 3.6-5.5 379) BLOOD GAS, [id number] 16:15:00 Test Item Value Reference Range Interpretation [...] code = 1819) 100.0 % SODIUM NA-STAT [id number] 16:15:00 Test Item Value Reference Range Interpretation Comments SODIUM (BEAKER) (test code = 381) 131 meq/L 135-148 L GLUCOSE-STAT [id number] 16:15:00 Test Item Value Reference Range Interpretation Comments GLUCOSE RANDOM (BEAKER) (test code 198 mg/dL 70-110 H = 652) HGB/HCT (H&H) - STAT [id number] 16:15:00 Test Item Value Reference Range Interpretation Comments HEMOGLOBIN (BEAKER) (test code = 7.5 g/dL 12.0-15.0 L 410) HEMATOCRIT (BEAKER) (test code = 22.0 % 36.0-45.0 L 411) CALCIUM, [id number] 16:14:00 Test Item Value Reference Range Interpretation Comments CALCIUM IONIZED (BEAKER) (test 0.91 mmol/L 1.12-1.27 L code = 698) PH, BLOOD (BEAKER) (test code = 7.39 1810) BLOOD GAS, [id number] 15:39:00 Test Item Value Reference Range Interpretation [...] code = 1819) 70.0 % SODIUM NA-STAT [id number] 15:39:00 Test Item Value Reference Range Interpretation Comments SODIUM (BEAKER) (test code = 381) 131 meq/L 135-148 L GLUCOSE-STAT [id number] 15:39:00 Test Item Value Reference Range Interpretation Comments GLUCOSE RANDOM (BEAKER) (test code 186 mg/dL 70-110 H = 652) HGB/HCT (H&H) - STAT [id number] 15:39:00 Test Item Value Reference Range Interpretation Comments HEMOGLOBIN (BEAKER) (test code = 7.5 g/dL 12.0-15.0 L 410) HEMATOCRIT (BEAKER) (test code = 22.0 % 36.0-45.0 L 411) POTASSIUM-STAT [id number] 15:38:00 Test Item Value Reference Range Interpretation Comments POTASSIUM (BEAKER) (test code = 5.3 meq/L 3.6-5.5 379) BLOOD GAS, [id number] 15:24:00 Test Item Value Reference Range Interpretation [...] code = 1819) 70.0 % SODIUM NA-STAT [id number] 15:24:00 Test Item Value Reference Range Interpretation Comments SODIUM (BEAKER) (test code = 381) 130 meq/L 135-148 L GLUCOSE-STAT [id number] 15:24:00 Test Item Value Reference Range Interpretation Comments GLUCOSE RANDOM (BEAKER) (test code 189 mg/dL 70-110 H = 652) HGB/HCT (H&H) - STAT [id number] 15:24:00 Test Item Value Reference Range Interpretation Comments HEMOGLOBIN (BEAKER) (test code = 6.7 g/dL 12.0-15.0 L 410) HEMATOCRIT (BEAKER) (test code = 20.0 % 36.0-45.0 L 411) POTASSIUM-STAT [id number] 15:23:00 Test Item Value Reference Range Interpretation Comments POTASSIUM (BEAKER) (test code = 5.4 meq/L 3.6-5.5 379) BLOOD GAS, [id number] 15:07:00 Test Item Value Reference Range Interpretation [...] code = 1819) 70.0 % SODIUM NA-STAT [id number] 15:07:00 Test Item Value Reference Range Interpretation Comments SODIUM (BEAKER) (test code = 381) 129 meq/L 135-148 L GLUCOSE-STAT [id number] 15:07:00 Test Item Value Reference Range Interpretation Comments GLUCOSE RANDOM (BEAKER) (test code 172 mg/dL 70-110 H = 652) HGB/HCT (H&H) - STAT [id number] 15:07:00 Test Item Value Reference Range Interpretation Comments HEMOGLOBIN (BEAKER) (test code = 7.1 g/dL 12.0-15.0 L 410) HEMATOCRIT (BEAKER) (test code = 21.0 % 36.0-45.0 L 411) POTASSIUM-STAT [id number] 15:04:00 Test Item Value Reference Range Interpretation Comments POTASSIUM (BEAKER) (test code = 5.0 meq/L 3.6-5.5 379) BLOOD GAS, [id number] 14:21:00 Test Item Value Reference Range Interpretation [...] code = 1819) 70.0 % SODIUM NA-STAT [id number] 14:21:00 Test Item Value Reference Range Interpretation Comments SODIUM (BEAKER) (test code = 381) 133 meq/L 135-148 L GLUCOSE-STAT [id number] 14:21:00 Test Item Value Reference Range Interpretation Comments GLUCOSE RANDOM (BEAKER) (test code 160 mg/dL 70-110 H = 652) HGB/HCT (H&H) - STAT [id number] 14:21:00 Test Item Value Reference Range Interpretation Comments HEMOGLOBIN (BEAKER) (test code = 7.5 g/dL 12.0-15.0 L 410) HEMATOCRIT (BEAKER) (test code = 22.0 % 36.0-45.0 L 411) POTASSIUM-STAT [id number] 14:20:00 Test Item Value Reference Range Interpretation Comments POTASSIUM (BEAKER) (test code = 4.7 meq/L 3.6-5.5 379) BLOOD GAS, [id number] 13:58:00 Test Item Value Reference Range Interpretation [...] code = 1819) 80.0 % SODIUM NA-STAT [id number] 13:58:00 Test Item Value Reference Range Interpretation Comments SODIUM (BEAKER) (test code = 381) 132 meq/L 135-148 L GLUCOSE-STAT [id number] 13:58:00 Test Item Value Reference Range Interpretation Comments GLUCOSE RANDOM (BEAKER) (test code 166 mg/dL 70-110 H = 652) HGB/HCT (H&H) - STAT [id number] 13:58:00 Test Item Value Reference Range Interpretation Comments HEMOGLOBIN (BEAKER) (test code = 7.5 g/dL 12.0-15.0 L 410) HEMATOCRIT (BEAKER) (test code = 22.0 % 36.0-45.0 L 411) POTASSIUM-STAT [id number] 13:57:00 Test Item Value Reference Range Interpretation Comments POTASSIUM (BEAKER) (test code = 4.7 meq/L 3.6-5.5 379) BLOOD GAS, [id number] 13:35:00 Test Item Value Reference Range Interpretation [...] (test code = 1819) 80.0 % GLUCOSE-STAT [id number] 13:35:00 Test Item Value Reference Range Interpretation Comments GLUCOSE RANDOM (BEAKER) (test code 130 mg/dL 70-110 H = 652) HGB/HCT (H&H) - STAT [id number] 13:35:00 Test Item Value Reference Range Interpretation Comments HEMOGLOBIN (BEAKER) (test code = 6.7 g/dL 12.0-15.0 L 410) HEMATOCRIT (BEAKER) (test code = 20.0 % 36.0-45.0 L 411) SODIUM NA-STAT [id number] 13:35:00 Test Item Value Reference Range Interpretation Comments SODIUM (BEAKER) (test code = 381) 133 meq/L 135-148 L POTASSIUM-STAT [id number] 13:34:00 Test Item Value Reference Range Interpretation Comments POTASSIUM (BEAKER) (test code = 4.2 meq/L 3.6-5.5 379) BLOOD GAS, [id number] 13:16:00 Test Item Value Reference Range Interpretation [...] code = 1819) 80.0 % SODIUM NA-STAT [id number] 13:16:00 Test Item Value Reference Range Interpretation Comments SODIUM (BEAKER) (test code = 381) 133 meq/L 135-148 L HGB/HCT (H&H) - STAT [id number] 13:16:00 Test Item Value Reference Range Interpretation Comments HEMOGLOBIN (BEAKER) (test code = 6.3 g/dL 12.0-15.0 L 410) HEMATOCRIT (BEAKER) (test code = 19.0 % 36.0-45.0 L 411) CALCIUM, [id number] 13:15:00 Test Item Value Reference Range Interpretation Comments CALCIUM IONIZED (BEAKER) (test 0.98 mmol/L 1.12-1.27 L code = 698) PH, BLOOD (BEAKER) (test code = 7.34 1810) BLOOD GAS, [id number] 13:15:00 Test Item Value Reference Range Interpretation [...] (test code = 1819) 80.0 % GLUCOSE-STAT [id number] 13:14:00 Test Item Value Reference Range Interpretation Comments GLUCOSE RANDOM (BEAKER) (test code = 92 mg/dL 70-110 652) POTASSIUM-STAT [id number] 13:14:00 Test Item Value Reference Range Interpretation Comments POTASSIUM (BEAKER) (test code = 3.9 meq/L 3.6-5.5 379) BLOOD GAS, [id number] 10:54:00 Test Item Value Reference Range Interpretation [...] 1819) 100.0 % HGB/HCT (H&H) - STAT [id number] 10:54:00 Test Item Value Reference Range Interpretation Comments HEMOGLOBIN (BEAKER) (test code = 9.3 g/dL 12.0-15.0 L 410) HEMATOCRIT (BEAKER) (test code = 27.0 % 36.0-45.0 L 411) SODIUM NA-STAT [id number] 10:54:00 Test Item Value Reference Range Interpretation Comments SODIUM (BEAKER) (test code = 381) 132 meq/L 135-148 L GLUCOSE-STAT [id number] 10:52:00 Test Item Value Reference Range Interpretation Comments GLUCOSE RANDOM (BEAKER) (test code = 94 mg/dL 70-110 652) POTASSIUM-STAT [id number] 10:52:00 Test Item Value Reference Range Interpretation Comments POTASSIUM (BEAKER) (test code = 4.0 meq/L 3.6-5.5 379) HEMOGLOBIN [id number] 09:50:00 Test Item Value Reference Range Interpretation Comments HEMOGLOBIN A1C (BEAKER) (test code = 10.6 % 4.3-6.1 H 368) PLATELET AGGREGATION: FUNCTION [id number] 08:27:00 Test Item Value Reference Range Interpretation Comments WEAK ADP 63 % 60-91 RESULT(BEAKER) (test code = 2135) PLATELET FUNCTION 60-100% indicates SCREEN INTERP (BEAKER) normal platelet (test code = 2173) function [id number] Toshia Post MD ([facility]) (test code = (electronic signature) 8376) PLATELET COUNT AGG 198 K/CU MM 150-450 (BEAKER) (test code = 5286) for patients on clopidogrel in past two weeksPOCT-GLUCOSE [id number] 08:11:00 Test Item Value Reference Range Interpretation Comments POC-GLUCOSE METER 116 mg/dL 70-110 H TESTED AT [facility] 6720 ([facility]) (test code = MATTHIASAMANDA Dylon [place] 1538) [address] [id number] 07:10:00 Test Item Value Reference Range Interpretation Comments PHOSPHORUS (BEAKER) (test code = 4.5 mg/dL 2.3-4.7 604) [id number] 07:10:00 Test Item Value Reference Range Interpretation Comments MAGNESIUM (BEAKER) (test code = 2.1 mg/dL 1.6-2.6 627) BASIC METABOLIC [id number] 07:10:00 Test Item Value Reference Range Interpretation [...] = 700) CBC W/PLT COUNT & AUTO [id number] 06:46:00 Test Item Value Reference Range Interpretation [...] PERCENT (BEAKER) (test code = 2801) CALCIUM, [id number] 06:40:00 Test Item Value Reference Range Interpretation Comments CALCIUM IONIZED (BEAKER) (test 1.06 mmol/L 1.12-1.27 L code = 698) PH, BLOOD (BEAKER) (test code = 7.39 1810) POCT-GLUCOSE [id number] 23:22:00 Test Item Value Reference Range Interpretation Comments POC-GLUCOSE METER 165 mg/dL 70-110 H TESTED AT [facility] 67[address] ([facility]) (test code = [place] 1538) [address] URINE PROTEIN ELECTROPHORESIS, [id number] 18:02:00 Test Item Value Reference Range Interpretation Comments PROTEIN, URINE 305 mg/dL 0-14 H (BEAKER) (test code = 1569) ALBUMIN URINE ELP 70.9 % (BEAKER) (test code = 1018) GAMMA GLOBULIN URINE 29.1 % (BEAKER) (test code = 1015) UPEP, ID-[id number] ([facility]) No monoclonal bands (test code = 2604) detected. [id number] Rocio Galindo MD ([facility]) (test code = (electronic signature) 4955) PROTEIN ELECTROPHORESIS, [id number] 17:57:00 Test Item Value Reference Range Interpretation [...] all globulin fractions. No monoclonal bands detected. [id number] Rocio Galindo MD (BEAKER) (test code = (electronic signature) 2616) PROTEIN TOTAL SERUM, 5.5 gm/dL 6.0-8.3 L SPEP (BEAKER) (test code = 1590) POCT-GLUCOSE [id number] 17:15:00 Test Item Value Reference Range Interpretation Comments POC-GLUCOSE METER 209 mg/dL 70-110 H TESTED AT [facility] 6720 (BEAKER) (test code = JULIANO Osborne [facility] 1538) [address] BLOOD GAS, [id number] 15:54:00 Test Item Value Reference Range Interpretation [...] 36.0 % RAD, CHEST, 1 VIEW, NON [id number] 14:07:00Reason for exam:->SOB, hypoxemiaShould this be performed [...] with mild interstitial edema. Signed: Regan Cespedes MDReport Verified Date/Time: 05/19/2017 14:07:07 Reading Location:[facility] [id number] Consult Reading Room POCT-GLUCOSE [id number] 11:26:00 Test Item Value Reference Range Interpretation Comments POC-GLUCOSE METER 262 mg/dL 70-110 H TESTED AT [facility] 6720 (BEAKER) (test [facility] = [facility] [id number] POCT-GLUCOSE [id number] 07:37:00 Test Item Value Reference Range Interpretation Comments POC-GLUCOSE METER 170 mg/dL 70-110 H TESTED AT [facility] 6720 (BEAKER) (test code = [facility] 1538) [address] CALCIUM, [id number] 06:06:00 Test Item Value Reference Range Interpretation Comments CALCIUM IONIZED (BEAKER) (test 1.05 mmol/L 1.12-1.27 L code = 698) PH, BLOOD (BEAKER) (test code = 7.41 1810) [id number] 05:38:00 Test Item Value Reference Range Interpretation Comments PHOSPHORUS (BEAKER) (test code = 3.9 mg/dL 2.3-4.7 604) [id number] 05:38:00 Test Item Value Reference Range Interpretation Comments MAGNESIUM (BEAKER) (test code = 2.2 mg/dL 1.6-2.6 627) BASIC METABOLIC [id number] 05:38:00 Test Item Value Reference Range Interpretation [...] PATIEN TS. CBC W/PLT COUNT & AUTO [id number] 05:09:00 Test Item Value Reference Range Interpretation [...] PERCENT (BEAKER) (test code = 2801) POCT-GLUCOSE [id number] 22:08:00 Test Item Value Reference Range Interpretation Comments POC-GLUCOSE METER 263 mg/dL 70-110 H TESTED AT [facility] 67 [facility] (test code = [facility] 1538) [address] POCT-GLUCOSE [id number] 17:20:00 Test Item Value Reference Range Interpretation Comments POC-GLUCOSE METER 233 mg/dL 70-110 H TESTED AT [place] [address] ([facility] (test code = [facility] 1538) [address] POCT-GLUCOSE [id number] 08:28:00 Test Item Value Reference Range Interpretation Comments POC-GLUCOSE METER 154 mg/dL 70-110 H TESTED AT [place] [address] ([facility]) (test code = [facility] 1538) [address] BASIC METABOLIC [id number] 06:41:00 Test Item Value Reference Range Interpretation [...] S NOT APPLICABLE FOR DIALYSIS PATIEN TS. [id number] 06:35:00 Test Item Value Reference Range Interpretation Comments PHOSPHORUS (BEAKER) (test code = 4.1 mg/dL 2.3-4.7 604) [id number] 06:35:00 Test Item Value Reference Range Interpretation Comments MAGNESIUM (BEAKER) (test code = 2.1 mg/dL 1.6-2.6 627) CALCIUM, [id number] 06:22:00 Test Item Value Reference Range Interpretation Comments CALCIUM IONIZED (BEAKER) (test 1.10 mmol/L 1.12-1.27 L code = 698) PH, BLOOD (BEAKER) (test code = 7.38 1810) CBC W/PLT COUNT & AUTO [id number] 06:04:00 Test Item Value Reference Range Interpretation [...] PERCENT (BEAKER) (test code = 2801) POCT-GLUCOSE [id number] 03:44:00 Test Item Value Reference Range Interpretation Comments POC-GLUCOSE METER 220 mg/dL 70-110 H TESTED AT [facility] 67 ([facility] (test [facility] = [facility] 1538) [address] POCT-GLUCOSE [id number] 18:27:00 Test Item Value Reference Range Interpretation Comments POC-GLUCOSE METER 256 mg/dL 70-110 H TESTED AT [facility] 6720 ([facility] (test code = [facility] Dylon [facility] 1538) [address] POCT-GLUCOSE [id number] 15:45:00 Test Item Value Reference Range Interpretation Comments POC-GLUCOSE METER 278 mg/dL 70-110 H TESTED AT [facility] 6720 ([facility] (test code = [facility] Dylon [facility] 1538) [address]473 POCT-GLUCOSE [id number] 13:22:00 Test Item Value Reference Range Interpretation Comments POC-GLUCOSE METER 278 mg/dL 70-110 H TESTED AT [facility] 6720 ([facility] (test code = [facility] Dylon [facility] 1538) [address] PLATELET AGGREGATION: FUNCTION [id number] 13:18:00 Test Item Value Reference Range Interpretation Comments WEAK ADP 66 % 60-91 RESULT(BEAKER) (test code = 2135) PLATELET FUNCTION 60-100% indicates SCREEN INTERP (BEAKER) normal platelet (test code = 2173) function [id number] Rigoberto Duenas MD (BEAKER) (test code = (electronic signature) 6912) PLATELET COUNT AGG 204 K/CU MM 150-450 (BEAKER) (test code = 2656) POCT-GLUCOSE [id number] 08:27:00 Test Item Value Reference Range Interpretation Comments POC-GLUCOSE METER 189 mg/dL 70-110 H TESTED AT [facility] 6720 (BEAKER) (test code = [place] 1538) [address] CALCIUM, [id number] 06:12:00 Test Item Value Reference Range Interpretation Comments CALCIUM IONIZED (BEAKER) (test 1.07 mmol/L 1.12-1.27 L code = 698) PH, BLOOD (BEAKER) (test code = 7.36 1810) [id number] 05:43:00 Test Item Value Reference Range Interpretation Comments PHOSPHORUS (BEAKER) (test code = 3.6 mg/dL 2.3-4.7 604) [id number] 05:43:00 Test Item Value Reference Range Interpretation Comments MAGNESIUM (BEAKER) (test code = 2.1 mg/dL 1.6-2.6 627) BASIC METABOLIC [id number] 05:43:00 Test Item Value Reference Range Interpretation [...] PATIEN TS. CBC W/PLT COUNT & AUTO [id number] 05:05:00 Test Item Value Reference Range Interpretation [...] EOSINOPHILS ABSOLUTE COUNT 0.27 K/ L 0.04-0.36 ([facility]) (test code = 416) BASOPHILS ABSOLUTE COUNT ([facility]) 0.06 K/ L 0.01-0.08 (test code = 417) IMMATURE GRANULOCYTES-RELATIVE 0 % 0-1 PERCENT ([facility]) (test code = 2801) POCT-GLUCOSE [id number] 21:32:00 Test Item Value Reference Range Interpretation Comments POC-GLUCOSE METER 176 mg/dL 70-110 H TESTED AT [place] [address] ([facility]) (test code = [facility] 1538) [address] POCT-GLUCOSE [id number] 20:27:00 Test Item Value Reference Range Interpretation Comments POC-GLUCOSE METER 161 mg/dL 70-110 H TESTED AT [place] [address] ([facility]) (test code = [facility] 1538) [address] POCT-GLUCOSE [id number] 18:23:00 Test Item Value Reference Range Interpretation Comments POC-GLUCOSE METER 185 mg/dL 70-110 H TESTED AT [place] [address] ([facility]) (test code = [facility] 1538) [address] POCT-GLUCOSE [id number] 13:26:00 Test Item Value Reference Range Interpretation Comments POC-GLUCOSE METER 282 mg/dL 70-110 H TESTED AT [place] [address] ([facility]) (test code = [facility] 1538) [address] URINE [id number] 10:12:00 Test Item Value Reference Range Interpretation Comments CULTURE ([facility]) (test >100,000 col/mL skin code = 1095) todd POCT-GLUCOSE [id number] 09:01:00 Test Item Value Reference Range Interpretation Comments POC-GLUCOSE METER 268 mg/dL 70-110 H TESTED AT [place] [address] ([facility]) (test code = [facility] 1538) [address] CALCIUM, [id number] 05:39:00 Test Item Value Reference Range Interpretation Comments CALCIUM IONIZED ([facility]) (test 0.84 mmol/L 1.12-1.27 L code = 698) PH, BLOOD ([facility]) (test code = 7.35 1810) BASIC METABOLIC [id number] 05:07:00 Test Item Value Reference Range Interpretation [...] S NOT APPLICABLE FOR DIALYSIS PATIEN TS. [id number] 05:06:00 Test Item Value Reference Range Interpretation Comments PHOSPHORUS (BEAKER) (test code = 3.2 mg/dL 2.3-4.7 604) [id number] 05:06:00 Test Item Value Reference Range Interpretation Comments MAGNESIUM (BEAKER) (test code = 2.3 mg/dL 1.6-2.6 627) CBC W/PLT COUNT & AUTO [id number] 04:42:00 Test Item Value Reference Range Interpretation [...] = 2801) RHEUMATOID FACTOR AB, REFLEX TO [id number] 01:52:00 Test Item Value Reference Range Interpretation Comments RHEUMATOID FACTOR (BEAKER) (test Negative code = 573) POCT-GLUCOSE [id number] 21:57:00 Test Item Value Reference Range Interpretation Comments POC-GLUCOSE METER 105 mg/dL 70-110 TESTED AT [facility] 6720 ([facility]) (test code = [place] 1538) [address] POCT-GLUCOSE [id number] 18:11:00 Test Item Value Reference Range Interpretation Comments POC-GLUCOSE METER 312 mg/dL 70-110 H Notified R oSnya PIERRE/TESTED (ROBERT) (test code = AT [facility] 67[address] [place] 1538) [facility] 7703 0 PET, CARDIAC PERFUSION MULTIPLE STUDIES, REST AND [id number] 16:28:00 Reason for exam:->pvcs, known cadFINAL REPORT PROCEDURE: Rest/Stress MYOCARDIAL PERFUSION PET with regadenoson\XA9\ CPT CODE: 73942 INDICATION: Defined extent and severity of known [...] is 23%. LVEF at stress is 36%. [employer] Helper CT images revealed a right pleural effusion [...] Lopez Verified Date/Time: 05/15/2017 16:28:12 Reading Location: [address] ReadingRoom RAD, CHEST, 1 VIEW, NON [id number] 15:56:00Reason for exam:->SOBShould this be performed at the bedside?->YesFINAL REPORT Comparison: 05/14/2017 TECHNIQUE: Single view of the chest FINDINGS: There is a small right pleural effusion with nonspecific airspace disease. This is unchanged. Left lung is grossly clear. Cardiac silhouette is enlarged. IMPRESSION: 1. No acute cardiopulmonary disease. Signed: Sixto oMnk MDReport Verified Date/Time: 05/15/2017 15:56:39 Reading Location: [facility] iology Reading Room POCT-GLUCOSE [id number] 12:54:00 Test Item Value Reference Range Interpretation Comments POC-GLUCOSE METER 308 mg/dL 70-110 H Notified Dylon Hassan MD/NATHAN (ROBERT) (test code = AT [facility] 67[address] [place] 1538) [facility] 7703 0 U/S, RENAL WITH [id number] 11:04:00Reason for exam:->tracy, htnShould this be performed [...] MDReport Verified Date/Time: 05/15/2017 11:04:01 Reading Location: [address] Ultrasound Reading Room ANA TITER AND [id number] 10:57:00 Test Item Value Reference Range Interpretation Comments ROGER TITER (BEAKER) (test code = :160 1541) ROGER PATTERN (BEAKER) (test code = Speckled 1781) ANTI-NUCLEAR ANTIBODY (ROGER)2017-05-15 10:56:00 Test Item Value Reference Range Interpretation Comments ANTI-NUCLEAR ANTIBODY (ROGER) (BEAKER) Positive Negative A (test code = 418) CALCIUM, [id number] 06:00:00 Test Item Value Reference Range Interpretation Comments CALCIUM IONIZED (BEAKER) (test 1.07 mmol/L 1.12-1.27 L code = 698) PH, BLOOD (BEAKER) (test code = 7.28 1810) HEPATITIS PANEL, [id number] 05:01:00 Test Item Value Reference Range Interpretation Comments HEPATITIS A IGM ANTIBODY (BEAKER) Nonreactive Nonreactive (test code = 498) HEPATITIS B CORE IGM ANTIBODY Nonreactive Nonreactive (BEAKER) (test code = 645) HEPATITIS C ANTIBODY (BEAKER) Nonreactive Nonreactive (test code = 367) HEPATITIS B SURFACE ANTIGEN (2) Nonreactive Nonreactive (BEAKER) (test code = 2585) BASIC METABOLIC [id number] 04:48:00 Test Item Value Reference Range Interpretation [...] NOT APPLICABLE FOR DIALYSIS PATIEN TS. URIC [id number] 04:41:00 Test Item Value Reference Range Interpretation Comments URIC ACID (BEAKER) (test code = 10.3 mg/dL 2.6-7.2 H 773) [id number] 04:41:00 Test Item Value Reference Range Interpretation Comments MAGNESIUM (BEAKER) (test code = 2.0 mg/dL 1.6-2.6 627) [id number] 04:41:00 Test Item Value Reference Range Interpretation Comments PHOSPHORUS (BEAKER) (test code = 4.2 mg/dL 2.3-4.7 604) COMPLEMENT COMPONENT [id number] 04:38:00 Test Item Value Reference Range Interpretation Comments C4 COMPLEMENT (BEAKER) (test code = 28 mg/dL 15-57 394) COMPLEMENT COMPONENT [id number] 04:38:00 Test Item Value Reference Range Interpretation Comments C3 COMPLEMENT (BEAKER) (test code = 103 mg/dL 82-193 393) CBC W/PLT COUNT & AUTO [id number] 04:22:00 Test Item Value Reference Range Interpretation [...] PERCENT (BEAKER) (test code = 2801) POCT-GLUCOSE [id number] 21:46:00 Test Item Value Reference Range Interpretation Comments POC-GLUCOSE METER 173 mg/dL 70-110 H TESTED AT [place] [address] ([facility]) (test code = [facility] 1538) [address] POCT-GLUCOSE [id number] 21:46:00 Test Item Value Reference Range Interpretation Comments POC-GLUCOSE METER 154 mg/dL 70-110 H TESTED AT [place] [address] ([facility]) (test code = [facility] 1538) [address] POCT-GLUCOSE [id number] 18:17:00 Test Item Value Reference Range Interpretation Comments POC-GLUCOSE METER 175 mg/dL 70-110 H TESTED AT [place] [address] ([facility]) (test code = [facility] 1538) [address] RAD, CHEST, 1 VIEW, NON [id number] 14:56:00Reason for exam:->SOBShould this be performed at the bedside?->YesFINAL REPORT INDICATION: SOB COMPARISON: May 13, 2017 TECHNIQUE: Chest radiograph, single view, portable technique. FINDINGS / IMPRESSION: Enlarged heart shadow, small rightpleural effusion, and pulmonary venous congestion, again demonstrated. No pneumothorax or consolidation. Osseous structures unremarkable. Signed: Thania Jean MDReport Verified Date/Time: 05/14/2017 14:56:58 Reading Location: [facility] Reading Room POCT-GLUCOSE [id number] 12:18:00 Test Item Value Reference Range Interpretation Comments POC-GLUCOSE METER 313 mg/dL 70-110 H TESTED AT [facility] 6720 (BEAKER) (test code = [place] 1538) [address] HIV-1 ANTIGEN WITH HIV-1/2 [id number] 12:07:00 Test Item Value Reference Range Interpretation Comments HIV-1 ANTIGEN WITH HIV 1\T\2 Nonreactive Nonreactive ANTIBODY (2) (BEAKER) (test code = 2586) CALCIUM, [id number] 06:37:00 Test Item Value Reference Range Interpretation Comments CALCIUM IONIZED (BEAKER) (test 1.08 mmol/L 1.12-1.27 L code = 698) PH, BLOOD (BEAKER) (test code = 7.25 1810) BASIC METABOLIC [id number] 06:26:00 Test Item Value Reference Range Interpretation [...] pg/mL 0-100 H (test code = 700) [id number] 06:25:00 Test Item Value Reference Range Interpretation Comments PHOSPHORUS (BEAKER) (test code = 5.7 mg/dL 2.3-4.7 H 604) [id number] 06:25:00 Test Item Value Reference Range Interpretation Comments MAGNESIUM (BEAKER) (test code = 1.5 mg/dL 1.6-2.6 L 627) CBC W/PLT COUNT & AUTO [id number] 06:07:00 Test Item Value Reference Range Interpretation [...] PERCENT (BEAKER) (test code = 2801) POCT-GLUCOSE [id number] 22:38:00 Test Item Value Reference Range Interpretation Comments POC-GLUCOSE METER 262 mg/dL 70-110 H TESTED AT [facility] 6720 (BEAKER) (test code = [place] 1538) [address] PROTEIN, RANDOM [id number] 22:18:00 Test Item Value Reference Range Interpretation Comments PROTEIN, URINE (BEAKER) (test code 641 mg/dL 0-14 H = 1569) CREATININE, RANDOM [id number] 22:07:00 Test Item Value Reference Range Interpretation Comments CREATININE URINE (BEAKER) (test 124.9 mg/dL code = 375) Reference Range: No NormalsURINALYSIS W/ [id number] 22:03:00 Test Item Value Reference Range Interpretation [...] 1585) SOURCE(BEAKER) (test code = Urine, Voided 8058) [id number] 19:49:00 Test Item Value Reference Range Interpretation Comments SODIUM (BEAKER) (test 136 meq/L 136-145 code = 381) POTASSIUM (BEAKER) 5.1 meq/L 3.5-5.1 Specimen slightly (test code = 379) hemolyzed CHLORIDE (BEAKER) 104 meq/L 98-107 (test code = 382) CO2 (BEAKER) (test 25 meq/L 22-29 code = 355) Call if K > 5POCT-GLUCOSE [id number] 11:37:00 Test Item Value Reference Range Interpretation Comments POC-GLUCOSE METER 293 mg/dL 70-110 H TESTED AT [facility] 6720 (BEAKER) (test code = [place] 1538) [address] RAD, CHEST, 1 VIEW, NON [id number] 10:22:00Reason for exam:->SOBShould this be performed at the bedside?->YesFINAL REPORT Chest one view Discussion: There is cardiomegaly and interstitial congestion. A small right-sided effusion is noted. No pneumothorax. IMPRESSIONS: Suspected CHF. Signed: Jeannette Nava Verified Date/Time: 05/13/2017 10:22:34 Reading Location: [facility] Radiology Reading Room POCT-GLUCOSE METER 2017-05-13 08:34:00 Test Item Value Reference Range Interpretation Comments POC-GLUCOSE METER 178 mg/dL 70-110 H TESTED AT [facility] 6720 (BEAKER) (test code = [place] 1538) [address] POCT-GLUCOSE [id number] 06:53:00 Test Item Value Reference Range Interpretation Comments POC-GLUCOSE METER 167 mg/dL 70-110 H [facility] (BEAKER) (test code = [place] 1538) [address] [id number] 04:48:00 Test Item Value Reference Range Interpretation Comments BLOOD UREA NITROGEN (BEAKER) (test 36 mg/dL 7-21 H code = 354) [id number] 04:48:00 Test Item Value Reference Range Interpretation Comments SODIUM (BEAKER) (test code = 381) 139 meq/L 136-145 POTASSIUM (BEAKER) (test code = 5.2 meq/L 3.5-5.1 H 379) CHLORIDE (BEAKER) (test code = 382) 109 meq/L 98-107 H CO2 (BEAKER) (test code = 355) 23 meq/L 22-29 [id number] 04:48:00 Test Item Value Reference Range Interpretation [...] WBC 0-0 (BEAKER) (test code = 413) [id number] 23:29:00 Test Item Value Reference Range Interpretation Comments ACTIVATED CLOTTING TIME 136 sec TEST ED AT [place] [address] ([facility]) (test code = JULIANO Osborne [place] [address]) [address] [id number] 20:13:00 Test Item Value Reference Range Interpretation Comments ACTIVATED CLOTTING TIME 175 sec TEST ED AT [place] [address] ([facility]) (test code = JULIANO Osborne [place] [address]) [address] [id number] 18:36:00 Test Item Value Reference Range Interpretation Comments ACTIVATED CLOTTING TIME 202 sec TEST ED AT [place] [address] ([facility]) (test code = JULIANO Osborne [place] [address]) [address] [id number] 18:03:00 Test Item Value Reference Range Interpretation Comments ACTIVATED CLOTTING TIME 208 sec TEST ED AT [place] [address] ([facility]) (test code = JULIANO Osborne [place] [address]) [address] BASIC METABOLIC [id number] 11:57:00 Test Item Value Reference Range Interpretation [...] NOT APPLICABLE FOR DIALYSIS PATIEN TS. PROTHROMBIN [id number] 11:15:00 Test Item Value Reference Range Interpretation [...] if on CoumadinCBC W/PLT COUNT & AUTO [id number] 11:01:00 Test Item Value Reference Range Interpretation [...] PERCENT (BEAKER) (test code = 2801) POCT-GLUCOSE [id number] 12:35:00 Test Item Value Reference Range Interpretation Comments POC-GLUCOSE METER 249 mg/dL 70-110 H TESTED AT [place] [address] ([facility]) (test code = [facility] Dylon [facility] 1538) [address] POCT-GLUCOSE [id number] 09:10:00 Test Item Value Reference Range Interpretation Comments POC-GLUCOSE METER 155 mg/dL 70-110 H TESTED AT [place] [address] ([facility]) (test code = [facility] 1538) [address] BASIC METABOLIC [id number] 05:39:00 Test Item Value Reference Range Interpretation [...] S NOT APPLICABLE FOR DIALYSIS PATIEN TS. [id number] 05:27:00 Test Item Value Reference Range Interpretation Comments PHOSPHORUS (BEAKER) (test code = 5.0 mg/dL 2.3-4.7 H 604) [id number] 05:27:00 Test Item Value Reference Range Interpretation Comments MAGNESIUM (BEAKER) (test code = 1.6 mg/dL 1.6-2.6 627) POCT-GLUCOSE [id number] 05:25:00 Test Item Value Reference Range Interpretation Comments POC-GLUCOSE METER 144 mg/dL 70-110 H TESTED AT [place] [address] ([facility]) (test code = [facility] [place] 1538) [address] PROTHROMBIN [id number] 04:58:00 Test Item Value Reference Range Interpretation Comments PROTIME (BEAKER) (test code = 14.2 seconds 11.7-14.7 759) INR (BEAKER) (test code = 370) 1.1 <=5.9 RECOMMENDED COUMADIN/WARFARIN INR THERAPY RANGESSTANDARD DOSE: 2.0 - 3.0 Includes: PROPHYLAXIS forvenous thrombosis, systemic embolization; TREATMENT for venous thrombosis and/or pulmonary embolus.HIGH RISK: Target INR is 2.5-3.5 for patients with mechanical heart valves.POCT-GLUCOSE [id number] 23:55:00 Test Item Value Reference Range Interpretation Comments POC-GLUCOSE METER 86 mg/dL 70-110 TESTED AT [facility] 6720 ([facility]) (test code = [place] [address] 1538) B-TYPE NATRIURETIC FACTOR (BNP)2017-04-22 18:13:00 Test Item Value Reference Range Interpretation Comments B-TYPE NATRIURETIC PEPTIDE 1203 pg/mL 0-100 H (BEAKER) (test code = 700) POCT-GLUCOSE [id number] 17:36:00 Test Item Value Reference Range Interpretation Comments POC-GLUCOSE METER 259 mg/dL 70-110 H TESTED AT [facility] 6720 ([facility]) (test code = JULIANO Osborne [facility] 1538) [address] HEMOGLOBIN [id number] 14:24:00 Test Item Value Reference Range Interpretation Comments HEMOGLOBIN A1C (BEAKER) (test code = 10.5 % 4.3-6.1 H 368) POCT-GLUCOSE [id number] 12:34:00 Test Item Value Reference Range Interpretation Comments POC-GLUCOSE METER 207 mg/dL 70-110 H TESTED AT [facility] 6720 ([facility]) (test code = [facility] 1538) [address] [id number] 07:53:00 Test Item Value Reference Range Interpretation Comments PHOSPHORUS (BEAKER) (test code = 3.9 mg/dL 2.3-4.7 604) [id number] 07:53:00 Test Item Value Reference Range Interpretation Comments MAGNESIUM (BEAKER) (test code = 1.6 mg/dL 1.6-2.6 627) BASIC METABOLIC [id number] 07:53:00 Test Item Value Reference Range Interpretation [...] NOT APPLICABLE FOR DIALYSIS PATIEN TS. TROPONIN [id number] 07:29:00 Test Item Value Reference Range Interpretation [...] acidosis, acute neurological disease, and persistent tachyarrhythmia.PROTHROMBIN [id number] 07:01:00 Test Item Value Reference Range Interpretation Comments PROTIME (ROBERT) (test code = 13.8 seconds 11.7-14.7 759) INR (ROBERT) (test code = 370) 1.1 <=5.9 RECOMMENDED COUMADIN/WARFARIN INR THERAPY RANGESSTANDARD DOSE: 2.0 - 3.0 Includes: PROPHYLAXIS forvenous thrombosis, systemic embolization; TREATMENT for venous thrombosis and/or pulmonary embolus.HIGH RISK: Target INR is 2.5-3.5 for patients with mechanical heart valves.POCT-GLUCOSE [id number] 06:28:00 Test Item Value Reference Range Interpretation Comments POC-GLUCOSE METER 198 mg/dL 70-110 H TESTED AT [facility] 6720 (ROBERT) (test code = [place] 1538) [address] CREATINE KINASE (CK), TOTAL AND [id number] 00:49:00 Test Item Value Reference Range Interpretation Comments CREATINE KINASE TOTAL (SERVANDOAKER) 69 U/L 29-200 (test code = 380) CREATINE KINASE-MB (ROBERT) (test 4.3 ng/mL 0.0-6.6 code = 750) CREATINE KINASE-MB INDEX (ROBERT) 6.2 % (test code = 395) CK-MB Reference Range:<6.7 Normal6.7-10.0 Borderline>10.0 AbnormalTROPONIN [id number] 00:49:00 Test Item Value Reference Range Interpretation [...] acidosis, acute neurological disease, and persistent tachyarrhythmia.POCT-GLUCOSE [id number] 20:44:00 Test Item Value Reference Range Interpretation Comments POC-GLUCOSE METER 269 mg/dL 70-110 H TESTED AT [facility] 6720 (ROBERT) (test code = [place] 1538) [address]
== END 2019-10-27 15:16 | disposition left against medical advice (07) ==
LOC: ER 14:33
DX: Z02.9 Encounter for administrative examinations, unspecified (principal)

== ENCOUNTER 2019-11-18 19:41 | Inpatient (IN) | payer MEDICAID ==
--- OUTSIDE RECORDS SUMMARY | 2019-11-18 19:43 | XMS REPORT | Clinical Summary ---
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 05/19/2017 [...] CANCER SCREENING PAP ONLY (Age 1203/30/1976 21-65) LIPID PANEL 2000 HEMOGLOBIN A1C 08/16/2017 05/19/2017, 04/22/2017 INFLUENZA VACCINE (#1) 2019 Implants Implanted Type Area Tamper Operator Device Shelf Model / Identifier Expiration Serial / Date Lot Device Clsr Angio-Seal Vip 8fr [id number] - [id number] Cardiovascular N/A: ST [employer]ELY[facility] 01/28/2018 [id number] / Implanted: Qty: 1 on 05/12/2017 by Sandra Gaytan MD Groin MED:CARDIAC / SURG [id number] Grft Eptfe-Heparin Rng [id number] - [id number] Graft/P atch Right: SUHAS MATHEW & 04/09/2021 [id number] / Implanted: Qty: 1 on 08/05/2017 by Mariela Ramirez MD Leg ASSC:MED PRDT [id number] / N/A Results Not on fileafter 11/17/2018 Insurance Payer Benefit Plan / Group Subscriber ID Type Phone A ddrisa [place] MED[place]ID [place] xxxxxxxxx Advance Directives For more information, please contact:[place] [phone] [place], [place] [phone] Code Status Date Activated Date Inactivated Comments [...]
--- OUTSIDE RECORDS SUMMARY | 2019-11-18 19:48 | XMS REPORT | Continuity of Care Document ---
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 y y disorder, disorder, with with long-term long-term current current use of use of insulin insulin Smoker Smoker Disease Active [facility] Medical 00 Center Frequent Frequent Disease Active [facility] PVCs PVCs 2[facility]12 [facility] - 00:00: Medical 00 [place] Essential Essential Problem Active [facility] (primary) (primary) [facility] - hypertensi hypertensi Me moria on on l [facility] Depression Depression Problem Active [facility] , , [facility] - unspecifie unspecifie Me moria d d l depression depression Ou tpati type type ent Clinics History of History of Problem Active [facility] cancer cancer [facility] Primary Primary Problem Active [facility] insomnia insomnia [facility] Chronic Chronic Problem Active [facility] acquired acquired [facility] - lymphedema lymphedema Me moria [facility] Clinics Chronic Chronic Diagnosis Active CHI [...] diastolic Luke s - congestive congestive Me [facility] heart heart l failure, failure, Outpat i NYHA class NYHA class en t 2 2 Clinics Chronic Chronic Problem Active [facility] obstructiv obstructiv Janna kes - e e Memoria pulmonary pulmonary l disease, disease, Outpat i unspecifie unspecifie en t d COPD d COPD 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 [facility] 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 current [facility] - use of use of Memoria insulin insulin l [facility] History of History of Problem Active [facility] stroke stroke [facility] 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2 Problem [...] St disease disease [facility] Allergies, Adverse Reactions, Alerts Allergy [...] Analogue adverse 00:00: Medical s reaction 00 [place] s Vancomyc Adverse Active vomiting [facility] in HCl Reaction [facility] Nitrogly Adverse Active vomiting [facility] cerin Reaction [facility] Morphine Adverse Active headache, [facility] Sulfate Reaction breathing [facility] - [facility] Clindamy Adverse Active vomiting [facility] t riley HCl Reaction [facility] Family History Family Member Diagnosis Comments Start Date Stop Date Source Natural father COPD [facility] Natural father Cancer [facility] Natural father Hypertension [facility] Natural mother No Known Problem [facility] Natural sister Asthma [facility] Natural sister COPD [facility] Social History Social Habit Start Date Stop Date Quantity Comments Source Sex Assigned At [facility] Cigarettes smoked 2017-09-02 2017-09-02 [facility] - current (pack per 00:00:00 00:00:00 Medical Center day) - Reported Cigarette 2017-09-02 2017-09-02 [facility] - pack-years 00:00:00 00:00:00 [facility] History of tobacco 2017-05-12 Current smoker [facility] use 00:00:00 [facility] Smoking Status Start Date Stop Date Source Former smoker 2017-09-02 00:00:00 2017-09-02 00:00:[address] [facility] Medications Ordered Filled [...] St detemir 3-[address] [facility] - (LEVEMIR 00:00: (5 Units Medic al [...] by mouth [facility] - tablet 20:09: daily. [address] Trazodone Trazodone Yes Franki TAKE [address] HCl HCl Jas TABLET BY [facility] - MOUTH Memoria EVERYDAY l AT BED[facility] Isosorbide Isosorbide Yes Franki TAKE [address] [facility] Mononitrate Mononitrate Jas TABLET BY [facility] - ER ER MOUTH Memoria EVERY DAY l [facility] NIFEdipine NIFEdipine Yes Franki TAKE [address] [facility] ER ER Jas TABLET BY [facility] - MOUTH [facility] EVERY DAY l [facility]ics BuPROPion BuPROPion Yes Franki TAKE [address] HCl HCl Jas TABLET BY [facility] MOUTH [facility] EVERY DAY l [facility] Acetaminoph Acetaminoph Yes [...] 00:00:00 measurement Medical Center (procedure) [code = 93679910] Future Scheduled [address] [facility] - Test 00:00:00 (procedure) [code = Medical Center 63499223] Future Scheduled [address] [facility] - Test 00:00:00 malignant neoplasm of Medica l Center cervix (procedure) [code = 605016694] Future Scheduled 1965 DIABETIC EYE EXAM [facility] - Test 00:00:00 [code = DIABETIC EYE Medical Center EXAM] Future Scheduled [address] [facility] - Test 00:00:00 examination Medical Center (regime/therapy) [code = 590096379] Future Scheduled 1965 Urine screening for [facility] Test 00:00:00 protein (procedure) Medical Center [code = 879200488] Future Scheduled [address] [facility] - Test 00:00:00 2-64 YEARS AT RISK (1 Medica l Center of 1 - PPSV23) [code = PNEUMOCOCCAL VACCINE 2-64 YEARS AT RISK (1 of 1 - PPSV23)] Future Scheduled [address] [facility] - Test 00:00:00 malignant neoplasm of Medica l Center breast (procedure) [code = 213014379] Future Scheduled [address] [facility] - Test 00:00:00 [facility] colon (procedure) [code = 623959906] Encounters Start End Encounter Admission Attending Care Care Encounter Source Date/Time Date/Time Type Type Clinicians Facility Department ID 2018-11-17 2018-11-17 Outpatient Alisno Wilson [id number] 11:30:00 11:30:00 [facility] Medicine Medicine Outpati ent Clinics 2018-10-06 2018-10-06 Outpatient Alison Wilson [id number] 16:14:00 16:14:00 [facility] Medicine Medicine Outpati ent [facility] 2018-09-28 2018-09-28 [facility] [id number] 10:30:00 10:30:00 [facility] ent [facility] Results Test Description Test Time Test Comments Results Result Comments Source POCT-GLUCOSE METER 2017-09-05 17:13:00 Test Item Value Reference Range Interpretation Comme nts POC-GLUCOSE METER (BEAKER) (test 220 mg/dL 70-110 H TESTED AT [facility] [address] [facility] 1538[facility] 7703 0 BASIC METABOLIC [id number] 15:47:00 Test Item Value Reference Range Interpretation [...] NOT APPLICABLE FOR DIALYSIS PATIEN TS. POCT-GLUCOSE [id number] 11:30:00 Test Item Value Reference Range Interpretation Comments POC-GLUCOSE METER 268 mg/dL 70-110 [facility]iCon[facility] (test code = [facility] 1538) [address] POCT-GLUCOSE [id number] 07:08:00 Test Item Value Reference Range Interpretation Comments POC-GLUCOSE METER 208 mg/dL 70-110 H [facility] (BEiConText[facility] (test code = [facility] 1538) [address] CALCIUM, [id number] 06:47:00 Test Item Value Reference Range Interpretation Comments CALCIUM IONIZED (BEAKER) (test 1.11 mmol/L 1.12-1.27 L code = 698) PH, BLOOD (BEAKER) (test code = 7.40 1810) BASIC METABOLIC [id number] 06:40:00 Test Item Value Reference Range Interpretation [...] S NOT APPLICABLE FOR DIALYSIS PATIEN TS. [id number] 06:33:00 Test Item Value Reference Range Interpretation Comments PHOSPHORUS (BEAKER) (test code = 5.1 mg/dL 2.3-4.7 H 604) [id number] 06:33:00 Test Item Value Reference Range Interpretation Comments MAGNESIUM (BEAKER) (test code = 2.0 mg/dL 1.6-2.6 627) LACTIC ACID, VENOUS, WHOLE [id number] 06:02:00 Test Item Value Reference Range Interpretation Comments LACTATE BLOOD VENOUS (2) (BEAKER) 0.8 mmol/L 0.5-2.2 (test code = 2872) Effective 08/02/2015: Units/Reference Range ChangeNew: 0.5-2.2 mmol/L Previous: 5-20 mg/dLCBC W/PLT COUNT & AUTO [id number] 05:54:00 Test Item Value Reference Range Interpretation [...] 417) IMMATURE GRANULOCYTES-RELATIVE 0 % 0-1 PERCENT ([facility]) (test code = 2801) POCT-GLUCOSE [id number] 21:30:00 Test Item Value Reference Range Interpretation Comments POC-GLUCOSE METER 248 mg/dL 70-110 H TESTED AT [place] [address] ([facility]) (test code = JULIANO Osborne [facility] 1538) [address] RAD, [id number] 21:22:00Reason for exam:->fall, tailbone painFINAL REPORT RAD, [...] Talbot Verified Date/Time: 09/04/2017 21:22:03 Reading Location: [address] Reading Room POCT-GLUCOSE [id number] 17:37:00 Test Item Value Reference Range Interpretation Comments POC-GLUCOSE METER 222 mg/dL 70-110 H TESTED AT [facility] 6720 ([facility]) (test code = JULIANO Osborne [facility] 1538) [address] POCT-GLUCOSE [id number] 13:55:00 Test Item Value Reference Range Interpretation Comments POC-GLUCOSE METER 194 mg/dL 70-110 H TESTED AT [place] [address] ([facility]) (test code = JULIANO Osborne [facility] 1538) [address] POCT-GLUCOSE [id number] 12:34:00 Test Item Value Reference Range Interpretation Comments POC-GLUCOSE METER 229 mg/dL 70-110 H TESTED AT [facility] 6720 (BEAKER) (test code = JULIANO Osborne [place] 1538) [address] POCT-GLUCOSE [id number] 08:00:00 Test Item Value Reference Range Interpretation Comments POC-GLUCOSE METER 159 mg/dL 70-110 H TESTED AT [facility] 6720 (BEAKER) (test code = JULIANO Osborne [place] 1538) [address] CALCIUM, [id number] 06:00:00 Test Item Value Reference Range Interpretation Comments CALCIUM IONIZED (BEAKER) (test 1.05 mmol/L 1.12-1.27 L code = 698) PH, BLOOD (BEAKER) (test code = 7.45 1810) [id number] 05:59:00 Test Item Value Reference Range Interpretation Comments PHOSPHORUS (BEAKER) (test code = 4.8 mg/dL 2.3-4.7 H 604) [id number] 05:59:00 Test Item Value Reference Range Interpretation Comments MAGNESIUM (BEAKER) (test code = 2.0 mg/dL 1.6-2.6 627) BASIC METABOLIC [id number] 05:59:00 Test Item Value Reference Range Interpretation [...] = 380) CBC W/PLT COUNT & AUTO [id number] 05:32:00 Test Item Value Reference Range Interpretation [...] PERCENT (BEAKER) (test code = 2801) POCT-GLUCOSE [id number] 20:36:00 Test Item Value Reference Range Interpretation Comments POC-GLUCOSE METER 211 mg/dL 70-110 H TESTED AT [place] [address] ([facility]) (test code = JULIANO Osborne [facility] 1538) [address] CREATININE, RANDOM [id number] 19:55:00 Test Item Value Reference Range Interpretation Comments CREATININE URINE ([facility]) (test 16.1 mg/dL code = 375) Reference Range: No NormalsPROTEIN, RANDOM [id number] 19:55:00 Test Item Value Reference Range Interpretation Comments PROTEIN, URINE ([facility]) (test code 102 mg/dL 0-14 H = 1569) POCT-GLUCOSE [id number] 18:04:00 Test Item Value Reference Range Interpretation Comments POC-GLUCOSE METER 177 mg/dL 70-110 H TESTED AT [place] [address] ([facility]) (test code = [facility] Dylon [facility] 1538) [address] POCT-GLUCOSE [id number] 11:59:00 Test Item Value Reference Range Interpretation Comments POC-GLUCOSE METER 244 mg/dL 70-110 H TESTED AT [place] [address] ([facility]) (test code = JULIANO Osborne [facility] 1538) [address] POCT-GLUCOSE [id number] 07:53:00 Test Item Value Reference Range Interpretation Comments POC-GLUCOSE METER 160 mg/dL 70-110 H TESTED AT [place] [address] ([facility]) (test code = [facility] Dylon [facility] 1538) [address] BASIC METABOLIC [id number] 05:29:00 Test Item Value Reference Range Interpretation [...] S NOT APPLICABLE FOR DIALYSIS PATIEN TS. [id number] 05:21:00 Test Item Value Reference Range Interpretation Comments MAGNESIUM (BEAKER) (test code = 2.1 mg/dL 1.6-2.6 627) HEPATIC FUNCTION [id number] 05:21:00 Test Item Value Reference Range Interpretation [...] code = 23 U/L 6-55 347) TROPONIN [id number] 05:18:00 Test Item Value Reference Range Interpretation [...] 417) IMMATURE GRANULOCYTES-RELATIVE 0 % 0-1 PERCENT ([facility]) (test code = 2801) TROPONIN [id number] 23:40:00 Test Item Value Reference Range Interpretation [...] acidosis, acute neurological disease, and persistent tachyarrhythmia.POCT-GLUCOSE [id number] 22:51:00 Test Item Value Reference Range Interpretation Comments POC-GLUCOSE METER 214 mg/dL 70-110 H TESTED AT [facility] 6720 ([facility]) (test code = JULIANO Osborne [place] 1538) [address] RAD, CHEST, 1 VIEW, NON [id number] 21:42:00Reason for exam:->CHEST PAINShould this be performed at the bedside?->YesFINAL REPORT RAD, CHEST, 1 VIEW, NON DEPT INDICATION: CHEST PAIN COMPARISON: Chest x-ray 4 weeks ago TECHNIQUE: Single frontal view of the chest. IMPRESSION:Cardiomegaly.Mild pulmonary interstitial edema with a small right- sided effusion.No acute osseous abnormality. Signed: Kristin Abraham MDReport Verified Date/Time: 09/02/2017 21:42:11 Reading Location: [address] Reading Room CREATININE, RANDOM [id number] 21:10:00 Test Item Value Reference Range Interpretation Comments CREATININE URINE (SERVANDOAKER) (test 35.5 mg/dL code = 375) Reference Range: No NormalsSODIUM, RANDOM [id number] 21:10:00 Test Item Value Reference Range Interpretation Comments SODIUM URINE (SERVANDOAKER) (test code = 80 meq/L 243) Reference Range: No NormalsURINALYSIS W/ [id number] 20:59:00 Test Item Value Reference Range Interpretation [...] code = 514) SOURCE(BEAKER) (test code = 9342) BASIC METABOLIC [id number] 16:49:00 Test Item Value Reference Range Interpretation [...] S NOT APPLICABLE FOR DIALYSIS PATIEN TS. [id number] 16:38:00 Test Item Value Reference Range Interpretation [...] (BEAKER) (test code = 700) BASIC METABOLIC [id number] 13:43:00 Test Item Value Reference Range Interpretation [...] NOT APPLICABLE FOR DIALYSIS PATIEN TS. POCT-GLUCOSE [id number] 12:44:00 Test Item Value Reference Range Interpretation Comments POC-GLUCOSE METER 283 mg/dL 70-110 H TESTED AT [facility] 6720 (BEAKER) (test code = JULIANO [place] 1538) [address] CALCIUM, [id number] 07:03:00 Test Item Value Reference Range Interpretation Comments CALCIUM IONIZED (BEAKER) (test 1.02 mmol/L 1.12-1.27 L code = 698) PH, BLOOD (BEAKER) (test code = 7.43 1810) [id number] 05:28:00 Test Item Value Reference Range Interpretation Comments PHOSPHORUS (BEAKER) (test code = 3.3 mg/dL 2.3-4.7 604) [id number] 05:28:00 Test Item Value Reference Range Interpretation Comments MAGNESIUM (BEAKER) (test code = 1.5 mg/dL 1.6-2.6 L 627) BASIC METABOLIC [id number] 05:28:00 Test Item Value Reference Range Interpretation [...] PATIEN TS. CBC W/PLT COUNT & AUTO [id number] 05:06:00 Test Item Value Reference Range Interpretation [...] EOSINOPHILS ABSOLUTE COUNT 0.31 K/ L 0.04-0.36 ([facility]) (test code = 416) BASOPHILS ABSOLUTE COUNT ([facility]) 0.07 K/ L 0.01-0.08 (test code = 417) IMMATURE GRANULOCYTES-RELATIVE 1 % 0-1 PERCENT ([facility]) (test code = 2801) POCT-GLUCOSE [id number] 21:08:00 Test Item Value Reference Range Interpretation Comments POC-GLUCOSE METER 202 mg/dL 70-110 H TESTED AT [place] [address] ([facility]) (test code = [facility] 1538) [address] POCT-GLUCOSE [id number] 16:50:00 Test Item Value Reference Range Interpretation Comments POC-GLUCOSE METER 287 mg/dL 70-110 H TESTED AT [place] [address] ([facility]) (test code = [facility] 1538) [address] POCT-GLUCOSE [id number] 12:21:00 Test Item Value Reference Range Interpretation Comments POC-GLUCOSE METER 213 mg/dL 70-110 H TESTED AT [place] [address] ([facility]) (test code = [facility] 1538) [address] POCT-GLUCOSE [id number] 08:28:00 Test Item Value Reference Range Interpretation Comments POC-GLUCOSE METER 178 mg/dL 70-110 H TESTED AT [place] [address] ([facility]) (test code = [facility] 1538) [address] CALCIUM, [id number] 07:06:00 Test Item Value Reference Range Interpretation Comments CALCIUM IONIZED ([facility]) (test 0.99 mmol/L 1.12-1.27 L code = 698) PH, BLOOD ([facility]) (test code = 7.42 1810) [id number] 05:37:00 Test Item Value Reference Range Interpretation Comments PHOSPHORUS (BEAKER) (test code = 3.5 mg/dL 2.3-4.7 604) [id number] 05:37:00 Test Item Value Reference Range Interpretation Comments MAGNESIUM (BEAKER) (test code = 1.6 mg/dL 1.6-2.6 627) BASIC METABOLIC [id number] 05:37:00 Test Item Value Reference Range Interpretation [...] PATIEN TS. CBC W/PLT COUNT & AUTO [id number] 05:07:00 Test Item Value Reference Range Interpretation [...] PERCENT (BEAKER) (test code = 2801) POCT-GLUCOSE [id number] 21:24:00 Test Item Value Reference Range Interpretation Comments POC-GLUCOSE METER 255 mg/dL 70-110 H TESTED AT [place] [address] ([facility]) (test code = [facility] 1538) [address] POCT-GLUCOSE [id number] 17:11:00 Test Item Value Reference Range Interpretation Comments POC-GLUCOSE METER 244 mg/dL 70-110 H TESTED AT [place] [address] ([facility]) (test code = [facility] 1538) [address] POCT-GLUCOSE [id number] 11:54:00 Test Item Value Reference Range Interpretation Comments POC-GLUCOSE METER 209 mg/dL 70-110 H TESTED AT [place] [address] ([facility]) (test code = [facility] 1538) [address] POCT-GLUCOSE [id number] 08:15:00 Test Item Value Reference Range Interpretation Comments POC-GLUCOSE METER 132 mg/dL 70-110 H TESTED AT [place] [address] ([facility]) (test code = [facility] 1538) [address] RAD, CHEST, 1 VIEW, NON [id number] 07:44:00Reason for exam:->edemaShould this be performed at the bedside?->YesFINAL REPORT Chest one view AP 08/07/2017 7:44 AM CLINICAL INDICATION: edema COMPARISON: 05/31/2017 IMPRESSION: Cardiomediastinal contours are stable. There is mild pulmonary edema,asymmetric to the right. There are trace bilateral pleural effusions, with bibasilar linear atelectasis. Sternotomy wires remain midline. Signed: Eder Cespedesort Verified Date/Time: 08/07/2017 07:44:22 Reading Location: [facility] Reading Room [id number] 05:30:00 Test Item Value Reference Range Interpretation Comments FERRITIN (BEAKER) (test code = 361) 87 ng/mL 5-275 CBC W/PLT COUNT & AUTO [id number] 05:21:00 Test Item Value Reference Range Interpretation [...] % 20-55 L (test code = 2590) [id number] 05:11:00 Test Item Value Reference Range Interpretation Comments PHOSPHORUS (BEAKER) (test code = 3.6 mg/dL 2.3-4.7 604) [id number] 05:11:00 Test Item Value Reference Range Interpretation Comments MAGNESIUM (BEAKER) (test code = 2.0 mg/dL 1.6-2.6 627) BASIC METABOLIC [id number] 05:11:00 Test Item Value Reference Range Interpretation [...] H (BEAKER) (test code = 700) CALCIUM, [id number] 04:58:00 Test Item Value Reference Range Interpretation Comments CALCIUM IONIZED (BEAKER) (test 1.04 mmol/L 1.12-1.27 L code = 698) PH, BLOOD (BEAKER) (test code = 7.41 1810) RETICULOCYTE [id number] 04:51:00 Test Item Value Reference Range Interpretation Comments RETICULOCYTE COUNT PCT (BEAKER) (test 1.2 % 0.5-1.7 code = 575) POCT-GLUCOSE [id number] 20:49:00 Test Item Value Reference Range Interpretation Comments POC-GLUCOSE METER 202 mg/dL 70-110 H TESTED AT [facility] 6720 (BEAKER) (test code = JULIANO REYEZ 1531) [address] CREATININE, RANDOM [id number] 18:38:00 Test Item Value Reference Range Interpretation Comments CREATININE URINE (BEAKER) (test 56.3 mg/dL code = 375) Reference Range: No NormalsPROTEIN, RANDOM [id number] 18:38:00 Test Item Value Reference Range Interpretation Comments PROTEIN, URINE (BEAKER) (test code 189 mg/dL 0-14 H = 1569) URINALYSIS W/ [id number] 18:34:00 Test Item Value Reference Range Interpretation [...] 516) SOURCE(BEAKER) (test code = Urine, Voided 9455) POCT-GLUCOSE [id number] 17:38:00 Test Item Value Reference Range Interpretation Comments POC-GLUCOSE METER 143 mg/dL 70-110 H TESTED AT [place] [address] (BEAKER) (test code = JULIANO REYEZ 1538) [address] POCT-GLUCOSE [id number] 12:30:00 Test Item Value Reference Range Interpretation Comments POC-GLUCOSE METER 218 mg/dL 70-110 H TESTED AT [place] [address] (BEAKER) (test code = JULIANO REYEZ 1538) [address] POCT-GLUCOSE [id number] 08:00:00 Test Item Value Reference Range Interpretation Comments POC-GLUCOSE METER 134 mg/dL 70-110 H TESTED AT [place] [address] (BEAKER) (test code = JULIANO REYEZ 1538) [address] CBC W/PLT COUNT & AUTO [id number] 04:23:00 Test Item Value Reference Range Interpretation [...] (BEAKER) (test code = 2801) BASIC METABOLIC [id number] 04:13:00 Test Item Value Reference Range Interpretation [...] S NOT APPLICABLE FOR DIALYSIS PATIEN TS. [id number] 04:10:00 Test Item Value Reference Range Interpretation Comments PHOSPHORUS (BEAKER) (test code = 4.9 mg/dL 2.3-4.7 H 604) [id number] 04:10:00 Test Item Value Reference Range Interpretation Comments MAGNESIUM (BEAKER) (test code = 1.4 mg/dL 1.6-2.6 L 627) [id number] 04:08:00 Test Item Value Reference Range Interpretation Comments FIBRINOGEN LEVEL (BEAKER) (test 548 mg/dl 225-434 H code = 658) [id number] 04:08:00 Test Item Value Reference Range Interpretation Comments PARTIAL THROMBOPLASTIN TIME 37.7 seconds 22.5-36.0 H (BEAKER) (test code = 760) PROTHROMBIN [id number] 04:07:00 Test Item Value Reference Range Interpretation Comments PROTIME (BEAKER) (test code = 16.2 seconds 11.7-14.7 H 759) INR (BEAKER) (test code = 370) 1.3 <=5.9 RECOMMENDED COUMADIN/WARFARIN INR THERAPY RANGESSTANDARD DOSE: 2.0 - 3.0 Includes: PROPHYLAXIS forvenous thrombosis, systemic embolization; TREATMENT for venous thrombosis and/or pulmonary embolus.HIGH RISK: Target INR is 2.5-3.5 for patients with mechanical heart valves.[id number] 16:59:00 Test Item Value Reference Range Interpretation Comments ACTIVATED CLOTTING TIME 219 sec TEST ED AT [place] [address] ([facility]) (test code = [facility] 441) [address] BASIC METABOLIC [id number] 14:25:00 Test Item Value Reference Range Interpretation [...] NOT APPLICABLE FOR DIALYSIS PATIEN TS. POCT-GLUCOSE [id number] 13:21:00 Test Item Value Reference Range Interpretation Comments POC-GLUCOSE METER 170 mg/dL 70-110 H TESTED AT [place] [address] ([facility]) (test code = [facility] 1538) [address] POTASSIUM-STAT [id number] 13:20:00 Test Item Value Reference Range Interpretation Comments POTASSIUM (BEAKER) (test code = 4.2 meq/L 3.6-5.5 379) SODIUM NA-STAT [id number] 13:20:00 Test Item Value Reference Range Interpretation Comments SODIUM (BEAKER) (test code = 381) 133 meq/L 135-148 L HGB/HCT (H&H) - STAT [id number] 12:34:00 Test Item Value Reference Range Interpretation Comments HEMOGLOBIN (BEAKER) (test code = 10.8 g/dL 12.0-15.0 L 410) HEMATOCRIT (BEAKER) (test code = 32.0 % 36.0-45.0 L 411) POTASSIUM-STAT [id number] 08:15:00 Test Item Value Reference Range Interpretation Comments POTASSIUM (BEAKER) (test code = 4.1 meq/L 3.6-5.5 379) BLOOD GAS, [id number] 08:15:00 Test Item Value Reference Range Interpretation [...] code = 1819) 70.0 % SODIUM NA-STAT [id number] 08:15:00 Test Item Value Reference Range Interpretation Comments SODIUM (BEAKER) (test code = 381) 130 meq/L 135-148 L GLUCOSE-STAT [id number] 08:15:00 Test Item Value Reference Range Interpretation Comments GLUCOSE RANDOM (BEAKER) (test code 172 mg/dL 70-110 H = 652) HGB/HCT (H&H) - STAT [id number] 08:15:00 Test Item Value Reference Range Interpretation Comments HEMOGLOBIN (BEAKER) (test code = 8.8 g/dL 12.0-15.0 L 410) HEMATOCRIT (BEAKER) (test code = 26.0 % 36.0-45.0 L 411) BASIC METABOLIC [id number] 07:37:00 Test Item Value Reference Range Interpretation [...] PATIEN TS. CBC W/PLT COUNT & AUTO [id number] 07:20:00 Test Item Value Reference Range Interpretation [...] % 0-1 PERCENT (BEAKER) (test code = 2805) POCT-GLUCOSE [id number] 07:03:00 Test Item Value Reference Range Interpretation Comments POC-GLUCOSE METER 186 mg/dL 70-110 H TESTED AT [facility] 6720 (BEAKER) (test code = [place]O [place] 1538) [address] B-TYPE NATRIURETIC FACTOR (BNP)2017-06-10 12:44:00 Test Item Value Reference Range Interpretation Comments B-TYPE NATRIURETIC PEPTIDE 1264 pg/mL 0-100 H (BEAKER) (test code = 700) [id number] 12:36:00 Test Item Value Reference Range Interpretation Comments MAGNESIUM (BEAKER) (test code = 1.6 mg/dL 1.6-2.6 627) BASIC METABOLIC [id number] 12:36:00 Test Item Value Reference Range Interpretation [...] NOT APPLICABLE FOR DIALYSIS PATIEN TS. POCT-GLUCOSE [id number] 12:04:00 Test Item Value Reference Range Interpretation Comments POC-GLUCOSE METER 274 mg/dL 70-110 H TESTED AT [facility] 67[address] ([facility] [place] ([facility] = [facility] 1538) [address] POCT-GLUCOSE [id number] 07:21:00 Test Item Value Reference Range Interpretation Comments POC-GLUCOSE METER 137 mg/dL 70-110 H TESTED AT [place] [id number] ([facility] [place]) (test code = MATTHIASNC Dylon [facility] 1538) [address] BASIC METABOLIC [id number] 05:10:00 Test Item Value Reference Range Interpretation [...] 0-0 (BEAKER) (test code = 413) POCT-GLUCOSE [id number] 21:23:00 Test Item Value Reference Range Interpretation Comments POC-GLUCOSE METER 240 mg/dL 70-110 H TESTED AT [place] [address] ([facility]) (test code = [place] 1538) [address] POCT-GLUCOSE [id number] 16:42:00 Test Item Value Reference Range Interpretation Comments POC-GLUCOSE METER 234 mg/dL 70-110 H TESTED AT [facility] 6720 ([facility]) (test code = [place] 1538) [address] POCT-GLUCOSE [id number] 13:22:00 Test Item Value Reference Range Interpretation Comments POC-GLUCOSE METER 166 mg/dL 70-110 H TESTED AT [facility] 6720 ([facility]) (test code = JULIANO Osborne [place] 1538) [address] RAD, CHEST, 1 VIEW, NON [id number] 09:43:00Reason for exam:->s/p ACBShould this be performed [...] are present. No pneumothorax. Signed: Lynda Ring MDReplake regional health system Verified Date/Time: 05/31/2017 09:43:30 ReadingLocation: [facility] B1 C013X Ortho Consult Reading Room POCT-GLUCOSE [id number] 06:57:00 Test Item Value Reference Range Interpretation Comments POC-GLUCOSE METER 136 mg/dL 70-110 H TESTED AT [facility] 6720 ([facility]) (test code = JULIANO Osborne [facility] 1538) [address] CALCIUM, [id number] 06:41:00 Test Item Value Reference Range Interpretation Comments CALCIUM IONIZED (BEAKER) (test 1.10 mmol/L 1.12-1.27 L code = 698) PH, BLOOD (BEAKER) (test code = 7.42 1810) [id number] 06:17:00 Test Item Value Reference Range Interpretation Comments PHOSPHORUS (BEAKER) (test code = 3.3 mg/dL 2.3-4.7 604) [id number] 06:17:00 Test Item Value Reference Range Interpretation Comments MAGNESIUM (BEAKER) (test code = 1.8 mg/dL 1.6-2.6 627) BASIC METABOLIC [id number] 06:17:00 Test Item Value Reference Range Interpretation [...] PATIEN TS. CBC W/PLT COUNT & AUTO [id number] 05:07:00 Test Item Value Reference Range Interpretation [...] PERCENT (BEAKER) (test code = 2801) POCT-GLUCOSE [id number] 20:56:00 Test Item Value Reference Range Interpretation Comments POC-GLUCOSE METER 196 mg/dL 70-110 H TESTED AT [place] [address] ([facility]) (test code = [facility] 1538) [address] POCT-GLUCOSE [id number] 16:42:00 Test Item Value Reference Range Interpretation Comments POC-GLUCOSE METER 196 mg/dL 70-110 H TESTED AT [place] [address] ([facility]) (test code = [facility] 1538) [address] POCT-GLUCOSE [id number] 11:45:00 Test Item Value Reference Range Interpretation Comments POC-GLUCOSE METER 215 mg/dL 70-110 H TESTED AT [place] [address] ([facility]) (test code = [facility] 1538) [address] RAD, CHEST, 1 VIEW, NON [id number] 11:15:00Reason for exam:->s/p ACBShould this be performed at the bedside?->YesFINAL REPORT Chest one view compared to May 28, 2017 Discussion: Airspace opacities are seen in both lower lung regions, probably atelectasis. Correlate clinically for infection. I could not exclude small effusions. No pneumothorax. Upper lungs clear. Signed: Jeannette Nava Verified Date/Time: 05/30/2017 11:15:07 Reading Location: [facility] Radiology Reading Room CALCIUM, [id number] 09:21:00 Test Item Value Reference Range Interpretation Comments CALCIUM IONIZED (BEAKER) (test 1.11 mmol/L 1.12-1.27 L code = 698) PH, BLOOD (BEAKER) (test code = 7.36 1810) BASIC METABOLIC [id number] 07:37:00 Test Item Value Reference Range Interpretation [...] S NOT APPLICABLE FOR DIALYSIS PATIEN TS. [id number] 07:28:00 Test Item Value Reference Range Interpretation Comments PHOSPHORUS (BEAKER) (test code = 3.8 mg/dL 2.3-4.7 604) [id number] 07:28:00 Test Item Value Reference Range Interpretation Comments MAGNESIUM (BEAKER) (test code = 1.9 mg/dL 1.6-2.6 627) CBC W/PLT COUNT & AUTO [id number] 07:26:00 Test Item Value Reference Range Interpretation [...] 417) IMMATURE GRANULOCYTES-RELATIVE 1 % 0-1 PERCENT ([facility]) (test code = 2801) POCT-GLUCOSE [id number] 07:21:00 Test Item Value Reference Range Interpretation Comments POC-GLUCOSE METER 146 mg/dL 70-110 H TESTED AT [place] [address] ([facility]) (test code = JULIANO Osborne [facility] 1538) [address] POCT-GLUCOSE [id number] 22:02:00 Test Item Value Reference Range Interpretation Comments POC-GLUCOSE METER 201 mg/dL 70-110 H TESTED AT [place] [address] ([facility]) (test code = [facility] 1538) [address] POCT-GLUCOSE [id number] 18:27:00 Test Item Value Reference Range Interpretation Comments POC-GLUCOSE METER 240 mg/dL 70-110 H TESTED AT [place] [address] ([facility]) (test code = [facility] 1538) [address] POCT-GLUCOSE [id number] 12:13:00 Test Item Value Reference Range Interpretation Comments POC-GLUCOSE METER 193 mg/dL 70-110 H TESTED AT [place] [address] ([facility]) (test code = [facility] Dylon [facility] 1538) [address] POCT-GLUCOSE [id number] 09:02:00 Test Item Value Reference Range Interpretation Comments POC-GLUCOSE METER 132 mg/dL 70-110 H TESTED AT [place] [address] ([facility]) (test code = [facility] Dylon [facility] 1538) [address] CALCIUM, [id number] 05:42:00 Test Item Value Reference Range Interpretation Comments CALCIUM IONIZED (AKER) (test 1.12 mmol/L 1.12-1.27 code = 698) PH, BLOOD ([facility]) (test code = 7.34 1810) COMPREHENSIVE METABOLIC [id number] 05:33:00 Test Item Value Reference Range Interpretation Comments TOTAL PROTEIN 5.9 gm/dL 6.0-8.3 L (BEAKER) (test code = 770) ALBUMIN (AKER) 2.7 g/dL 3.5-5.0 L (test code = 1145) ALKALINE PHOSPHATASE 130 U/L 40-150 (AKER) (test code = 346) BILIRUBIN TOTAL 0.3 [...] S NOT APPLICABLE FOR DIALYSIS PATIEN TS. [id number] 05:32:00 Test Item Value Reference Range Interpretation Comments PHOSPHORUS (BEAKER) (test code = 3.6 mg/dL 2.3-4.7 604) [id number] 05:32:00 Test Item Value Reference Range Interpretation Comments MAGNESIUM (BEAKER) (test code = 2.2 mg/dL 1.6-2.6 627) CBC W/PLT COUNT & AUTO [id number] 05:01:00 Test Item Value Reference Range Interpretation [...] PERCENT (BEAKER) (test code = 2801) POCT-GLUCOSE [id number] 21:04:00 Test Item Value Reference Range Interpretation Comments POC-GLUCOSE METER 165 mg/dL 70-110 H TESTED AT [facility] 6720 (BEAKER) (test code = JULIANO [place] 1538) [address] POCT-GLUCOSE [id number] 17:30:00 Test Item Value Reference Range Interpretation Comments POC-GLUCOSE METER 236 mg/dL 70-110 H TESTED AT [place] [address] ([facility]) (test code = JULIANO Osborne [facility] 1538) [address] RAD, CHEST, 1 VIEW, NON [id number] 13:53:00Reason for exam:->assess for ill-defined opacityShould this [...] [place] Verified Date/Time: 05/28/2017 13:53:03 Reading Location: [address] Radiology Reading Room POCT-GLUCOSE [id number] 11:53:00 Test Item Value Reference Range Interpretation Comments POC-GLUCOSE METER 215 mg/dL 70-110 H TESTED AT [place] [address] ([facility]) (test code = JULIANO Osborne [facility] 1538) [address] POCT-GLUCOSE [id number] 08:32:00 Test Item Value Reference Range Interpretation Comments POC-GLUCOSE METER 168 mg/dL 70-110 H TESTED AT [place] [address] ([facility]) (test code = JULIANO Osborne [facility] 1538) [address] CALCIUM, [id number] 05:44:00 Test Item Value Reference Range Interpretation Comments CALCIUM IONIZED ([facility]) (test 1.09 mmol/L 1.12-1.27 L code = 698) PH, BLOOD ([facility]) (test code = 7.38 1810) [id number] 05:44:00 Test Item Value Reference Range Interpretation Comments PHOSPHORUS ([facility]) (test code = 3.5 mg/dL 2.3-4.7 604) [id number] 05:44:00 Test Item Value Reference Range Interpretation Comments MAGNESIUM (BEAKER) (test code = 1.9 mg/dL 1.6-2.6 627) BASIC METABOLIC [id number] 05:44:00 Test Item Value Reference Range Interpretation [...] 697) EGFR (BEAKER) (test 38 mL/min/1.73 ESTIMA HIAN GFR IS code = 1092) sq m NOT ACCURATE CREATININE CLEARANCE IN PREDICTING GLOMERULAR FILTRATION RATE . ESTIMATED GFR I S NOT APPLICABLE FOR DIALYSIS PATIEN TS. CBC W/PLT COUNT & AUTO [id number] 05:05:00 Test Item Value Reference Range Interpretation [...] PERCENT (BEAKER) (test code = 2801) POCT-GLUCOSE [id number] 21:03:00 Test Item Value Reference Range Interpretation Comments POC-GLUCOSE METER 173 mg/dL 70-110 H TESTED AT [place] [address] ([facility]) (test code = [place] 1538) [address] [id number] 18:15:00 Test Item Value Reference Range Interpretation Comments ACTIVATED CLOTTING TIME 147 sec TEST ED AT [place] [address] ([facility]) (test code = [place] 441) [address] [id number] 18:15:00 Test Item Value Reference Range Interpretation Comments ACTIVATED CLOTTING TIME 246 sec TEST ED AT [place] [address] ([facility]) (test code = [place] [address]) [address] POCT-GLUCOSE [id number] 12:39:00 Test Item Value Reference Range Interpretation Comments POC-GLUCOSE METER 219 mg/dL 70-110 H TESTED AT [facility] 6720 (BEAKER) (test code = JULIANO Osborne [facility] 1538) [address] RAD, CHEST, 1 VIEW, NON [id number] 10:11:00Reason for exam:->pl effusionShould this be performed at the bedside?->YesFINAL REPORT Chest one view compared to May 26 Discussion: There is cardiac prominence. Upper lungs are clear. Ill-defined basilar densities are similar probably atelectasis. No gross effusion or pneumothorax with bilateral chest tubes in place. Signed: Jeannette Navaeport Verified Date/Time: 05/27/2017 10:11:44 Reading Location: [facility] Radiology Reading Room POCT-GLUCOSE METER 2017-05-27 07:05:00 Test Item Value Reference Range Interpretation Comments POC-GLUCOSE METER 167 mg/dL 70-110 H TESTED AT [facility] 6720 (BEAKER) (test code = JULIANO Osborne [facility] 1538) [address] CALCIUM, [id number] 06:20:00 Test Item Value Reference Range Interpretation Comments CALCIUM IONIZED (BEAKER) (test 0.98 mmol/L 1.12-1.27 L code = 698) PH, BLOOD (BEAKER) (test code = 7.50 1810) [id number] 04:56:00 Test Item Value Reference Range Interpretation Comments PHOSPHORUS (BEAKER) (test code = 2.6 mg/dL 2.3-4.7 604) [id number] 04:56:00 Test Item Value Reference Range Interpretation Comments MAGNESIUM (BEAKER) (test code = 2.0 mg/dL 1.6-2.6 627) BASIC METABOLIC [id number] 04:56:00 Test Item Value Reference Range Interpretation [...] PATIEN TS. CBC W/PLT COUNT & AUTO [id number] 04:36:00 Test Item Value Reference Range Interpretation [...] PERCENT (BEAKER) (test code = 2801) POCT-GLUCOSE [id number] 21:29:00 Test Item Value Reference Range Interpretation Comments POC-GLUCOSE METER 147 mg/dL 70-110 H TESTED AT [place] [address] ([facility]) (test code = [facility] 1538) [address] POCT-GLUCOSE [id number] 17:51:00 Test Item Value Reference Range Interpretation Comments POC-GLUCOSE METER 224 mg/dL 70-110 H TESTED AT [place] [address] ([facility]) (test code = [facility] 1538) [address] POCT-GLUCOSE [id number] 13:53:00 Test Item Value Reference Range Interpretation Comments POC-GLUCOSE METER 182 mg/dL 70-110 H TESTED AT [place] [address] ([facility]) (test code = [facility] 1538) [address] RAD, CHEST, 1 VIEW, NON [id number] 08:44:00Reason for exam:->pl effusionShould this be performed [...] MDReport Verified Date/Time: 05/26/2017 08:44:25 Reading Location: [address] Radiology Reading Room POCT- GLUCOSE [id number] 07:43:00 Test Item Value Reference Range Interpretation Comments POC-GLUCOSE METER 113 mg/dL 70-110 H TESTED AT [facility] 6720 (BEAKER) (test code = [place]O [place] 1538) [address] CALCIUM, [id number] 06:31:00 Test Item Value Reference Range Interpretation Comments CALCIUM IONIZED (BEAKER) (test 1.07 mmol/L 1.12-1.27 L code = 698) PH, BLOOD (BEAKER) (test code = 7.38 1810) [id number] 04:51:00 Test Item Value Reference Range Interpretation Comments PHOSPHORUS (BEAKER) (test code = 3.2 mg/dL 2.3-4.7 604) [id number] 04:51:00 Test Item Value Reference Range Interpretation Comments MAGNESIUM (BEAKER) (test code = 2.1 mg/dL 1.6-2.6 627) BASIC METABOLIC [id number] 04:51:00 Test Item Value Reference Range Interpretation [...] PATIEN TS. CBC W/PLT COUNT & AUTO [id number] 04:27:00 Test Item Value Reference Range Interpretation [...] PERCENT (BEAKER) (test code = 2801) POCT-GLUCOSE [id number] 23:48:00 Test Item Value Reference Range Interpretation Comments POC-GLUCOSE METER 123 mg/dL 70-110 H TESTED AT [facility] 6720 (BEAKER) (test code = [facility] Dylon [facility] 1538) [address] POCT-GLUCOSE [id number] 16:46:00 Test Item Value Reference Range Interpretation Comments POC-GLUCOSE METER 178 mg/dL 70-110 H TESTED AT [place] [address] ([facility] [place]) (test code = [facility] 1538) [address] BASIC METABOLIC [id number] 05:53:00 Test Item Value Reference Range Interpretation [...] S NOT APPLICABLE FOR DIALYSIS PATIEN TS. [id number] 05:52:00 Test Item Value Reference Range Interpretation Comments PHOSPHORUS (BEAKER) (test code = 4.2 mg/dL 2.3-4.7 604) [id number] 05:52:00 Test Item Value Reference Range Interpretation Comments MAGNESIUM (BEAKER) (test code = 2.3 mg/dL 1.6-2.6 627) CALCIUM, [id number] 05:27:00 Test Item Value Reference Range Interpretation Comments CALCIUM IONIZED (BEAKER) (test 1.12 mmol/L 1.12-1.27 code = 698) PH, BLOOD (BEAKER) (test code = 7.38 1810) CBC W/PLT COUNT & AUTO [id number] 05:07:00 Test Item Value Reference Range Interpretation [...] = 2801) RAD, CHEST, 1 VIEW, NON [id number] 04:45:00Reason for exam:->pl effusionShould this be performed at the bedside?->YesFINAL REPORT RAD, CHEST, 1 VIEW, NON DEPT INDICATION: pl effusion COMPARISON:Prior day's exam FINDINGS: Portable frontal view of the chest. IMPRESSION: Support Lines: Stable.Lungs and pleura: Unchanged airspace and pleural opacities. No pneumothorax.Heart and mediastinum: Stable contours. Stable surgical changes.Additional findings: None. Signed: JR Boswell Robert MDReport Verified Date/Time: 05/25/2017 04:45:08 Reading Location: [facility] C013Y CT Body Reading Room POCT-GLUCOSE [id number] 01:52:00 Test Item Value Reference Range Interpretation Comments POC-GLUCOSE METER 126 mg/dL 70-110 H TESTED AT [facility] 6720 ([facility]) (test code = JULIANO Osborne [facility] 1538) [address] POCT-GLUCOSE [id number] 13:07:00 Test Item Value Reference Range Interpretation Comments POC-GLUCOSE METER 118 mg/dL 70-110 H TESTED AT [facility] 6720 ([facility]) (test code = JULIANO Osborne [facility] 1538) [address] BRONCHIAL CULTURE + GRAM [id number] 11:35:00 Test Item Value Reference Range Interpretation Comments CULTURE ([facility]) (test code = 1095) Amikacin [...] <1+ gram (BEAKER) (test code = positive 671382) cocci in pairs GRAM STAIN RESULT 1+ gram (BEAKER) (test code = variable rods 288397) 1+ Normal respiratory todd presentRAD, CHEST, 1 VIEW, NON [id number] 06:50:00Reason for exam:->pl effusionShould this be performed at the bedside?->YesFINAL REPORT RAD, CHEST, 1 VIEW, NON DEPT INDICATION: pl effusion COMPARISON:Prior day's exam FINDINGS: Portable frontal view of the chest. IMPRESSION: Support Lines: Stable.Lungs and pleura: Unchanged airspace and pleural opacities. No pneumothorax.Heart and mediastinum: Stable contours. Stable surgical changes.Additional findings: None. Signed: JR Boswell Robert MDReport Verified Date/Time: 05/24/2017 06:50:08 Reading Location: [facility] C0[facility] CT Body Reading Room BASIC METABOLIC [id number] 04:19:00 Test Item Value Reference Range Interpretation [...] NOT APPLICABLE FOR DIALYSIS PATIEN TS. CALCIUM, [id number] 04:16:00 Test Item Value Reference Range Interpretation Comments CALCIUM IONIZED (BEAKER) (test 1.06 mmol/L 1.12-1.27 L code = 698) PH, BLOOD (BEAKER) (test code = 7.40 1810) [id number] 04:11:00 Test Item Value Reference Range Interpretation Comments PHOSPHORUS (BEAKER) (test code = 6.0 mg/dL 2.3-4.7 H 604) [id number] 04:11:00 Test Item Value Reference Range Interpretation Comments MAGNESIUM (BEAKER) (test code = 2.4 mg/dL 1.6-2.6 627) CBC W/PLT COUNT & AUTO [id number] 03:50:00 Test Item Value Reference Range Interpretation [...] PERCENT (BEAKER) (test code = 2801) POCT-GLUCOSE [id number] 20:45:00 Test Item Value Reference Range Interpretation Comments POC-GLUCOSE METER 143 mg/dL 70-110 H TESTED AT [facility] 6720 (BEAKER) (test code = JULIANO Osborne [place] 1538) [address] POCT-GLUCOSE [id number] 20:45:00 Test Item Value Reference Range Interpretation Comments POC-GLUCOSE METER 145 mg/dL 70-110 H TESTED AT [facility] 6720 (BEAKER) (test code = [place]IAN[place] 1538) [address] [id number] 13:37:00 Test Item Value Reference Range Interpretation Comments PREALBUMIN (BEAKER) 10 mg/dL 14-45 L Specimen slightly (test code = 586) hemolyzed OXYGEN SATURATION, [id number] 12:31:00 Test Item Value Reference Range Interpretation Comments O2 SATURATION (MEASURED) (BEAKER) 94.5 % (test code = 1455) [id number] 11:02:00 Test Item Value Reference Range Interpretation Comments PREALBUMIN (BEAKER) (test code = 10 mg/dL 14-45 L 586) RAD, CHEST, 1 VIEW, NON [id number] 05:14:00while patient is intubated or has chest [...] MDReport Verified Date/Time: 05/23/2017 05:14:04 Reading Location: [address] Body Reading Room BASIC METABOLIC [id number] 03:48:00 Test Item Value Reference Range Interpretation [...] S NOT APPLICABLE FOR DIALYSIS PATIEN TS. [id number] 03:46:00 Test Item Value Reference Range Interpretation Comments MAGNESIUM (BEAKER) 2.4 mg/dL 1.6-2.6 Specimen slightly (test code = 627) hemolyzed [id number] 03:46:00 Test Item Value Reference Range Interpretation Comments PHOSPHORUS (BEAKER) 6.5 mg/dL 2.3-4.7 H Specimen slightly (test code = 604) hemolyzed CBC W/PLT COUNT & AUTO [id number] 03:26:00 Test Item Value Reference Range Interpretation [...] (BEAKER) (test code = 2801) BLOOD GAS, [id number] 03:18:00 Test Item Value Reference Range Interpretation [...] (test code = 1819) 36.0 % CALCIUM, [id number] 16:32:00 Test Item Value Reference Range Interpretation Comments CALCIUM IONIZED (BEAKER) (test 1.11 mmol/L 1.12-1.27 L code = 698) PH, BLOOD (BEAKER) (test code = 7.39 1810) BASIC METABOLIC [id number] 15:43:00 Test Item Value Reference Range Interpretation [...] NOT APPLICABLE FOR DIALYSIS PATIEN TS. POCT-GLUCOSE [id number] 12:53:00 Test Item Value Reference Range Interpretation Comments POC-GLUCOSE METER 118 mg/dL 70-110 H TESTED AT [facility] 6720 (BEAKER) (test code = [place]IANO [place] 1538) [address] BLOOD GAS, [id number] 10:42:00 Test Item Value Reference Range Interpretation [...] (test code = 1819) 40.0 % POCT-GLUCOSE [id number] 06:46:00 Test Item Value Reference Range Interpretation Comments POC-GLUCOSE METER 106 mg/dL 70-110 TESTED AT [facility] 6720 (BEAKER) (test code = [place]IANO [place] 1538) [address] RAD, CHEST, 1 VIEW, NON [id number] 05:05:00while patient is intubated or has chest [...] MDReport Verified Date/Time: 05/22/2017 05:05:00 Reading Location: [address] Body ReadingRoom BASIC METABOLIC [id number] 05:00:00 Test Item Value Reference Range Interpretation [...] S NOT APPLICABLE FOR DIALYSIS PATIEN TS. [id number] 04:41:00 Test Item Value Reference Range Interpretation Comments PHOSPHORUS (BEAKER) (test code = 6.4 mg/dL 2.3-4.7 H 604) [id number] 04:41:00 Test Item Value Reference Range Interpretation Comments MAGNESIUM (BEAKER) (test code = 2.6 mg/dL 1.6-2.6 627) CALCIUM, [id number] 04:26:00 Test Item Value Reference Range Interpretation Comments CALCIUM IONIZED (BEAKER) (test 1.09 mmol/L 1.12-1.27 L code = 698) PH, BLOOD (BEAKER) (test code = 7.40 1810) OXYGEN SATURATION, [id number] 04:25:00 Test Item Value Reference Range Interpretation Comments O2 SATURATION (MEASURED) (BEAKER) 77.0 % (test code = 1455) CBC W/PLT COUNT & AUTO [id number] 04:17:00 Test Item Value Reference Range Interpretation [...] code = 2806) LACTIC ACID, ARTERIAL, WHOLE [id number] 00:07:00 Test Item Value Reference Range Interpretation Comments LACTATE BLOOD 1.0 mmol/L 0.5-2.2 Specimen sligh tly ARTERIAL (2) (BEAKER) hemoly zed (test code = 2874) Effective 08/02/2015: Units/Reference Range ChangeNew: 0.5-2.2 mmol/L Previous: 5-20 mg/dLPOCT-GLUCOSE [id number] 23:47:00 Test Item Value Reference Range Interpretation Comments POC-GLUCOSE METER 180 mg/dL 70-110 H TESTED AT [facility] 67[address] (BEAKER) (test code = [place] 1538) [address] BLOOD GAS, [id number] 23:46:00 Test Item Value Reference Range Interpretation [...] code = 1819) 100.0 % SODIUM NA-STAT [id number] 23:46:00 Test Item Value Reference Range Interpretation Comments SODIUM (BEAKER) (test code = 381) 134 meq/L 135-148 L GLUCOSE-STAT [id number] 23:46:00 Test Item Value Reference Range Interpretation Comments GLUCOSE RANDOM (BEAKER) (test code 119 mg/dL 70-110 H = 652) HGB/HCT (H&H) - STAT [id number] 23:46:00 Test Item Value Reference Range Interpretation Comments HEMOGLOBIN (BEAKER) (test code = 8.8 g/dL 12.0-15.0 L 410) HEMATOCRIT (BEAKER) (test code = 26.0 % 36.0-45.0 L 411) OXYGEN SATURATION, [id number] 23:45:00 Test Item Value Reference Range Interpretation Comments O2 SATURATION (MEASURED) (BEAKER) 68.1 % (test code = 1455) POTASSIUM-STAT [id number] 23:45:00 Test Item Value Reference Range Interpretation Comments POTASSIUM (BEAKER) (test code = 5.5 meq/L 3.6-5.5 379) POCT-GLUCOSE [id number] 20:58:00 Test Item Value Reference Range Interpretation Comments POC-GLUCOSE METER 133 mg/dL 70-110 H TESTED AT [facility] 6720 (BEAKER) (test code = JULIANO Osborne [place] 1538) [address] POCT-GLUCOSE [id number] 17:58:00 Test Item Value Reference Range Interpretation Comments POC-GLUCOSE METER 210 mg/dL 70-110 H TESTED AT [place] [address] (BEAKER) (test code = JULIANO Osborne [place] 1538) [address] POCT-GLUCOSE [id number] 17:58:00 Test Item Value Reference Range Interpretation Comments POC-GLUCOSE METER 211 mg/dL 70-110 H TESTED AT [place] [address] (BEAKER) (test code = JULIANO Osborne [place] 1538) [address] POCT-GLUCOSE [id number] 17:58:00 Test Item Value Reference Range Interpretation Comments POC-GLUCOSE METER 232 mg/dL 70-110 H TESTED AT [place] [address] (BEAKER) (test code = JULIANO Osborne [place] 1538) [address] POCT-GLUCOSE [id number] 17:58:00 Test Item Value Reference Range Interpretation Comments POC-GLUCOSE METER 262 mg/dL 70-110 H TESTED AT [place] [address] (BEAKER) (test code = JULIANO Osborne [place] 1538) [address] BLOOD GAS, [id number] 17:01:00 Test Item Value Reference Range Interpretation [...] (test code = 1819) 60.0 % POTASSIUM-STAT [id number] 17:00:00 Test Item Value Reference Range Interpretation Comments POTASSIUM (BEAKER) (test code = 4.8 meq/L 3.6-5.5 379) POCT-GLUCOSE [id number] 15:52:00 Test Item Value Reference Range Interpretation Comments POC-GLUCOSE METER 267 mg/dL 70-110 H TESTED AT [place] [address] ([facility]) (test code = JULIANO Osborne [place] 1538) [address] POCT-GLUCOSE [id number] 14:42:00 Test Item Value Reference Range Interpretation Comments POC-GLUCOSE METER 231 mg/dL 70-110 H TESTED AT [facility] 6720 (BEAKER) (test code = [place]IANO [place] 1538) [address] BODY FLUID CELL COUNT WITH [id number] 14:41:00 Test Item Value Reference Range Interpretation [...] FLUID (BEAKER) EDTA Tube (test code = 8723) BASIC METABOLIC [id number] 14:11:00 Test Item Value Reference Range Interpretation [...] S NOT APPLICABLE FOR DIALYSIS PATIEN TS. [id number] 14:08:00 Test Item Value Reference Range Interpretation Comments PHOSPHORUS (ROBERT) (test code = 7.2 mg/dL 2.3-4.7 H 604) [id number] 14:08:00 Test Item Value Reference Range Interpretation Comments MAGNESIUM (ROBERT) (test code = 2.6 mg/dL 1.6-2.6 627) POCT-GLUCOSE [id number] 12:49:00 Test Item Value Reference Range Interpretation Comments POC-GLUCOSE METER 224 mg/dL 70-110 H TESTED AT [facility] 6720 (ROBERT) (test code = JULIANO Osborne [facility] 1538) [address] POCT-GLUCOSE [id number] 12:49:00 Test Item Value Reference Range Interpretation Comments POC-GLUCOSE METER 248 mg/dL 70-110 H TESTED AT [facility] 6720 (ROBERT) (test code = JULIANO Osborne [facility] 1538) [address] RAD, CHEST, 1 VIEW, NON [id number] 12:32:00Reason for exam:->re-intubationShould this be performed at [...] MDReport Verified Date/Time: 05/21/2017 12:32:08 Reading Location: [facility] Reading Room POTASSIUM-STAT [id number] 12:28:00 Test Item Value Reference Range Interpretation Comments POTASSIUM (BEDANIELA) (test code = 5.5 meq/L 3.6-5.5 379) BLOOD GAS, [id number] 12:28:00 Test Item Value Reference Range Interpretation [...] code = 1819) 100.0 % BLOOD GAS, [id number] 10:53:00 Test Item Value Reference Range Interpretation [...] 36.0 % RAD, CHEST, 1 VIEW, NON [id number] 08:46:00while patient is intubated or has chest [...] MDReport Verified Date/Time: 05/21/2017 08:46:27 Reading Location: [facility] Reading Room BLOOD GAS, [id number] 05:41:00 Test Item Value Reference Range Interpretation [...] (BEAKER) (test code = 1819) 40 CALCIUM, [id number] 04:35:00 Test Item Value Reference Range Interpretation Comments CALCIUM IONIZED (BEAKER) (test 1.13 mmol/L 1.12-1.27 code = 698) PH, BLOOD (BEAKER) (test code = 7.32 1810) BLOOD GAS, [id number] 04:28:00 Test Item Value Reference Range Interpretation [...] (BEAKER) (test code = 1819) 40.0 % [id number] 04:20:00 Test Item Value Reference Range Interpretation Comments PHOSPHORUS (BEAKER) (test code = 6.2 mg/dL 2.3-4.7 H 604) [id number] 04:20:00 Test Item Value Reference Range Interpretation Comments MAGNESIUM (BEAKER) (test code = 2.4 mg/dL 1.6-2.6 627) HEPATIC FUNCTION [id number] 04:20:00 Test Item Value Reference Range Interpretation [...] = 11 U/L 6-55 347) BASIC METABOLIC [id number] 04:20:00 Test Item Value Reference Range Interpretation [...] APPLICABLE FOR DIALYSIS PATIEN TS. OXYGEN SATURATION, [id number] 04:18:00 Test Item Value Reference Range Interpretation Comments O2 SATURATION (MEASURED) (BEAKER) 68.0 % (test code = 1455) LACTIC ACID, ARTERIAL, WHOLE [id number] 04:12:00 Test Item Value Reference Range Interpretation Comments LACTATE BLOOD ARTERIAL (2) 1.0 mmol/L 0.5-2.2 (BEAKER) (test code = 2874) Effective 08/02/2015: Units/Reference Range ChangeNew: 0.5-2.2 mmol/L Previous: 5-20 mg/dLCBC W/PLT COUNT & AUTO [id number] 04:00:00 Test Item Value Reference Range Interpretation [...] (BEAKER) (test code = 2801) BLOOD GAS, [id number] 00:06:00 Test Item Value Reference Range Interpretation [...] (BEAKER) (test code = 1819) 40.0 % [id number] 18:55:00 Test Item Value Reference Range Interpretation Comments PHOSPHORUS (BEAKER) (test code = 4.8 mg/dL 2.3-4.7 H 604) [id number] 18:55:00 Test Item Value Reference Range Interpretation Comments MAGNESIUM (BEAKER) (test code = 2.3 mg/dL 1.6-2.6 627) BASIC METABOLIC [id number] 18:55:00 Test Item Value Reference Range Interpretation [...] DIALYSIS PATIEN TS. LACTIC ACID, ARTERIAL, WHOLE [id number] 18:53:00 Test Item Value Reference Range Interpretation Comments LACTATE BLOOD 0.9 mmol/L 0.5-2.2 Specimen sligh tly ARTERIAL (2) (BEAKER) hemoly zed (test code = 2874) Effective 08/02/2015: Units/Reference Range ChangeNew: 0.5-2.2 mmol/L Previous: 5-20 mg/dLRAD, CHEST, 1 VIEW, NON [id number] 18:44:00Reason for exam:- >postop cardiacShould this be [...] MDReport Verified Date/Time: 05/20/2017 18:44:30 Reading Location: [address] Consult Reading Room Electronically signed by: LISA LI M.D. on05/20/2017 06:44 PMCBC W/PLT COUNT & AUTO [id number] 18:38:00 Test Item Value Reference Range Interpretation [...] (BEAKER) (test code = 2801) OXYGEN SATURATION, [id number] 18:36:00 Test Item Value Reference Range Interpretation Comments O2 SATURATION (MEASURED) (BEAKER) 72.5 % (test code = 1455) From distal port of IJ central venous catheterSODIUM NA-STAT [id number] 18:30:00 Test Item Value Reference Range Interpretation Comments SODIUM (BEAKER) (test code = 381) 132 meq/L 135-148 L HGB/HCT (H&H) - STAT [id number] 18:30:00 Test Item Value Reference Range Interpretation Comments HEMOGLOBIN (BEAKER) (test code = 9.4 g/dL 12.0-15.0 L 410) HEMATOCRIT (BEAKER) (test code = 28.0 % 36.0-45.0 L 411) GLUCOSE-STAT [id number] 18:30:00 Test Item Value Reference Range Interpretation Comments GLUCOSE RANDOM (BEAKER) (test code 159 mg/dL 70-110 H = 652) BLOOD GAS, [id number] 18:30:00 Test Item Value Reference Range Interpretation [...] (test code = 1819) 60.0 % CALCIUM, [id number] 18:30:00 Test Item Value Reference Range Interpretation Comments CALCIUM IONIZED (BEAKER) (test 0.94 mmol/L 1.12-1.27 L code = 698) PH, BLOOD (BEAKER) (test code = 7.34 1810) POTASSIUM-STAT [id number] 18:28:00 Test Item Value Reference Range Interpretation [...] (test 0.0 % 0.0-5.0 code = 1414) [id number] 17:53:00 Test Item Value Reference Range Interpretation Comments ACTIVATED CLOTTING TIME 103 sec TEST ED AT [place] [address] ([facility]) (test code = [place] [address]) [address] [id number] 17:53:00 Test Item Value Reference Range Interpretation Comments ACTIVATED CLOTTING TIME 466 sec TEST ED AT [place] [address] ([facility]) (test code = [place] [address]) [address] [id number] 17:53:00 Test Item Value Reference Range Interpretation Comments ACTIVATED CLOTTING TIME 543 sec TEST ED AT [place] [address] ([facility]) (test code = [place] [address]) [address] [id number] 17:53:00 Test Item Value Reference Range Interpretation Comments ACTIVATED CLOTTING TIME 549 sec TEST ED AT [place] [address] ([facility]) (test code = [place] [address]) [address] [id number] 17:53:00 Test Item Value Reference Range Interpretation Comments ACTIVATED CLOTTING TIME 632 sec TEST ED AT [place] [address] ([facility]) (test code = [place] [address]) [address] [id number] 17:53:00 Test Item Value Reference Range Interpretation Comments ACTIVATED CLOTTING TIME 494 sec TEST ED AT [place] [address] ([facility]) (test code = [place] 441) [address] [id number] 17:53:00 Test Item Value Reference Range Interpretation Comments ACTIVATED CLOTTING TIME 587 sec TEST ED AT [place] [address] ([facility]) (test code = [place] [address]) [address] [id number] 17:53:00 Test Item Value Reference Range Interpretation Comments ACTIVATED CLOTTING TIME 626 sec TEST ED AT [place] [address] ([facility]) (test code = [place] 441) [address] [id number] 17:52:00 Test Item Value Reference Range Interpretation Comments ACTIVATED CLOTTING TIME 808 sec TEST ED AT [place] [address] ([facility]) (test code = [place] [address]) [address] [id number] 16:54:00 Test Item Value Reference Range Interpretation Comments PARTIAL THROMBOPLASTIN TIME 40.2 seconds 22.5-36.0 H ([facility]) (test code = 760) [id number] 16:53:00 Test Item Value Reference Range Interpretation Comments FIBRINOGEN LEVEL ([facility]) (test 306 mg/dl 225-434 code = 658) PROTHROMBIN [id number] 16:50:00 Test Item Value Reference Range Interpretation Comments PROTIME ([facility]) (test code = 19.6 seconds 11.7-14.7 H 759) INR (BEAKER) (test code = 370) 1.7 <=5.9 RECOMMENDED COUMADIN/WARFARIN INR THERAPY RANGESSTANDARD DOSE: 2.0 - 3.0 Includes: PROPHYLAXIS forvenous thrombosis, systemic embolization; TREATMENT for venous thrombosis and/or pulmonary embolus.HIGH RISK: Target INR is 2.5-3.5 for patients with mechanical heart valves.PLATELET [id number] 16:45:00 Test Item Value Reference Range Interpretation Comments PLATELET COUNT (BEAKER) (test 136 K/CU MM 150-450 L code = 756) POTASSIUM-STAT [id number] 16:15:00 Test Item Value Reference Range Interpretation Comments POTASSIUM (BEAKER) (test code = 4.9 meq/L 3.6-5.5 379) BLOOD GAS, [id number] 16:15:00 Test Item Value Reference Range Interpretation [...] code = 1819) 100.0 % SODIUM NA-STAT [id number] 16:15:00 Test Item Value Reference Range Interpretation Comments SODIUM (BEAKER) (test code = 381) 131 meq/L 135-148 L GLUCOSE-STAT [id number] 16:15:00 Test Item Value Reference Range Interpretation Comments GLUCOSE RANDOM (BEAKER) (test code 198 mg/dL 70-110 H = 652) HGB/HCT (H&H) - STAT [id number] 16:15:00 Test Item Value Reference Range Interpretation Comments HEMOGLOBIN (BEAKER) (test code = 7.5 g/dL 12.0-15.0 L 410) HEMATOCRIT (BEAKER) (test code = 22.0 % 36.0-45.0 L 411) CALCIUM, [id number] 16:14:00 Test Item Value Reference Range Interpretation Comments CALCIUM IONIZED (BEAKER) (test 0.91 mmol/L 1.12-1.27 L code = 698) PH, BLOOD (BEAKER) (test code = 7.39 1810) BLOOD GAS, [id number] 15:39:00 Test Item Value Reference Range Interpretation [...] code = 1819) 70.0 % SODIUM NA-STAT [id number] 15:39:00 Test Item Value Reference Range Interpretation Comments SODIUM (BEAKER) (test code = 381) 131 meq/L 135-148 L GLUCOSE-STAT [id number] 15:39:00 Test Item Value Reference Range Interpretation Comments GLUCOSE RANDOM (BEAKER) (test code 186 mg/dL 70-110 H = 652) HGB/HCT (H&H) - STAT [id number] 15:39:00 Test Item Value Reference Range Interpretation Comments HEMOGLOBIN (BEAKER) (test code = 7.5 g/dL 12.0-15.0 L 410) HEMATOCRIT (BEAKER) (test code = 22.0 % 36.0-45.0 L 411) POTASSIUM-STAT [id number] 15:38:00 Test Item Value Reference Range Interpretation Comments POTASSIUM (BEAKER) (test code = 5.3 meq/L 3.6-5.5 379) BLOOD GAS, [id number] 15:24:00 Test Item Value Reference Range Interpretation [...] code = 1819) 70.0 % SODIUM NA-STAT [id number] 15:24:00 Test Item Value Reference Range Interpretation Comments SODIUM (BEAKER) (test code = 381) 130 meq/L 135-148 L GLUCOSE-STAT [id number] 15:24:00 Test Item Value Reference Range Interpretation Comments GLUCOSE RANDOM (BEAKER) (test code 189 mg/dL 70-110 H = 652) HGB/HCT (H&H) - STAT [id number] 15:24:00 Test Item Value Reference Range Interpretation Comments HEMOGLOBIN (BEAKER) (test code = 6.7 g/dL 12.0-15.0 L 410) HEMATOCRIT (BEAKER) (test code = 20.0 % 36.0-45.0 L 411) POTASSIUM-STAT [id number] 15:23:00 Test Item Value Reference Range Interpretation Comments POTASSIUM (BEAKER) (test code = 5.4 meq/L 3.6-5.5 379) BLOOD GAS, [id number] 15:07:00 Test Item Value Reference Range Interpretation [...] code = 1819) 70.0 % SODIUM NA-STAT [id number] 15:07:00 Test Item Value Reference Range Interpretation Comments SODIUM (BEAKER) (test code = 381) 129 meq/L 135-148 L GLUCOSE-STAT [id number] 15:07:00 Test Item Value Reference Range Interpretation Comments GLUCOSE RANDOM (BEAKER) (test code 172 mg/dL 70-110 H = 652) HGB/HCT (H&H) - STAT [id number] 15:07:00 Test Item Value Reference Range Interpretation Comments HEMOGLOBIN (BEAKER) (test code = 7.1 g/dL 12.0-15.0 L 410) HEMATOCRIT (BEAKER) (test code = 21.0 % 36.0-45.0 L 411) POTASSIUM-STAT [id number] 15:04:00 Test Item Value Reference Range Interpretation Comments POTASSIUM (BEAKER) (test code = 5.0 meq/L 3.6-5.5 379) BLOOD GAS, [id number] 14:21:00 Test Item Value Reference Range Interpretation [...] code = 1819) 70.0 % SODIUM NA-STAT [id number] 14:21:00 Test Item Value Reference Range Interpretation Comments SODIUM (BEAKER) (test code = 381) 133 meq/L 135-148 L GLUCOSE-STAT [id number] 14:21:00 Test Item Value Reference Range Interpretation Comments GLUCOSE RANDOM (BEAKER) (test code 160 mg/dL 70-110 H = 652) HGB/HCT (H&H) - STAT [id number] 14:21:00 Test Item Value Reference Range Interpretation Comments HEMOGLOBIN (BEAKER) (test code = 7.5 g/dL 12.0-15.0 L 410) HEMATOCRIT (BEAKER) (test code = 22.0 % 36.0-45.0 L 411) POTASSIUM-STAT [id number] 14:20:00 Test Item Value Reference Range Interpretation Comments POTASSIUM (BEAKER) (test code = 4.7 meq/L 3.6-5.5 379) BLOOD GAS, [id number] 13:58:00 Test Item Value Reference Range Interpretation [...] code = 1819) 80.0 % SODIUM NA-STAT [id number] 13:58:00 Test Item Value Reference Range Interpretation Comments SODIUM (BEAKER) (test code = 381) 132 meq/L 135-148 L GLUCOSE-STAT [id number] 13:58:00 Test Item Value Reference Range Interpretation Comments GLUCOSE RANDOM (BEAKER) (test code 166 mg/dL 70-110 H = 652) HGB/HCT (H&H) - STAT [id number] 13:58:00 Test Item Value Reference Range Interpretation Comments HEMOGLOBIN (BEAKER) (test code = 7.5 g/dL 12.0-15.0 L 410) HEMATOCRIT (BEAKER) (test code = 22.0 % 36.0-45.0 L 411) POTASSIUM-STAT [id number] 13:57:00 Test Item Value Reference Range Interpretation Comments POTASSIUM (BEAKER) (test code = 4.7 meq/L 3.6-5.5 379) BLOOD GAS, [id number] 13:35:00 Test Item Value Reference Range Interpretation [...] (test code = 1819) 80.0 % GLUCOSE-STAT [id number] 13:35:00 Test Item Value Reference Range Interpretation Comments GLUCOSE RANDOM (BEAKER) (test code 130 mg/dL 70-110 H = 652) HGB/HCT (H&H) - STAT [id number] 13:35:00 Test Item Value Reference Range Interpretation Comments HEMOGLOBIN (BEAKER) (test code = 6.7 g/dL 12.0-15.0 L 410) HEMATOCRIT (BEAKER) (test code = 20.0 % 36.0-45.0 L 411) SODIUM NA-STAT [id number] 13:35:00 Test Item Value Reference Range Interpretation Comments SODIUM (BEAKER) (test code = 381) 133 meq/L 135-148 L POTASSIUM-STAT [id number] 13:34:00 Test Item Value Reference Range Interpretation Comments POTASSIUM (BEAKER) (test code = 4.2 meq/L 3.6-5.5 379) BLOOD GAS, [id number] 13:16:00 Test Item Value Reference Range Interpretation [...] code = 1819) 80.0 % SODIUM NA-STAT [id number] 13:16:00 Test Item Value Reference Range Interpretation Comments SODIUM (BEAKER) (test code = 381) 133 meq/L 135-148 L HGB/HCT (H&H) - STAT [id number] 13:16:00 Test Item Value Reference Range Interpretation Comments HEMOGLOBIN (BEAKER) (test code = 6.3 g/dL 12.0-15.0 L 410) HEMATOCRIT (BEAKER) (test code = 19.0 % 36.0-45.0 L 411) CALCIUM, [id number] 13:15:00 Test Item Value Reference Range Interpretation Comments CALCIUM IONIZED (BEAKER) (test 0.98 mmol/L 1.12-1.27 L code = 698) PH, BLOOD (BEAKER) (test code = 7.34 1810) BLOOD GAS, [id number] 13:15:00 Test Item Value Reference Range Interpretation [...] (test code = 1819) 80.0 % GLUCOSE-STAT [id number] 13:14:00 Test Item Value Reference Range Interpretation Comments GLUCOSE RANDOM (BEAKER) (test code = 92 mg/dL 70-110 652) POTASSIUM-STAT [id number] 13:14:00 Test Item Value Reference Range Interpretation Comments POTASSIUM (BEAKER) (test code = 3.9 meq/L 3.6-5.5 379) BLOOD GAS, [id number] 10:54:00 Test Item Value Reference Range Interpretation [...] 1819) 100.0 % HGB/HCT (H&H) - STAT [id number] 10:54:00 Test Item Value Reference Range Interpretation Comments HEMOGLOBIN (BEAKER) (test code = 9.3 g/dL 12.0-15.0 L 410) HEMATOCRIT (BEAKER) (test code = 27.0 % 36.0-45.0 L 411) SODIUM NA-STAT [id number] 10:54:00 Test Item Value Reference Range Interpretation Comments SODIUM (BEAKER) (test code = 381) 132 meq/L 135-148 L GLUCOSE-STAT [id number] 10:52:00 Test Item Value Reference Range Interpretation Comments GLUCOSE RANDOM (BEAKER) (test code = 94 mg/dL 70-110 652) POTASSIUM-STAT [id number] 10:52:00 Test Item Value Reference Range Interpretation Comments POTASSIUM (BEAKER) (test code = 4.0 meq/L 3.6-5.5 379) HEMOGLOBIN [id number] 09:50:00 Test Item Value Reference Range Interpretation Comments HEMOGLOBIN A1C (BEAKER) (test code = 10.6 % 4.3-6.1 H 368) PLATELET AGGREGATION: FUNCTION [id number] 08:27:00 Test Item Value Reference Range Interpretation Comments WEAK ADP 63 % 60-91 RESULT(BEAKER) (test code = 2135) PLATELET FUNCTION 60-100% indicates SCREEN INTERP (BEAKER) normal platelet (test code = 2173) function [id number] Toshia Post MD (BEAKER) (test code = (electronic signature) 2027) PLATELET COUNT AGG 198 K/CU MM 150-450 (BEAKER) (test code = 2656) for patients on clopidogrel in past two weeksPOCT-GLUCOSE [id number] 08:11:00 Test Item Value Reference Range Interpretation Comments POC-GLUCOSE METER 116 mg/dL 70-110 H TESTED AT [facility] 6720 (BEAKER) (test code = [place] 1538) [address] [id number] 07:10:00 Test Item Value Reference Range Interpretation Comments PHOSPHORUS (BEAKER) (test code = 4.5 mg/dL 2.3-4.7 604) [id number] 07:10:00 Test Item Value Reference Range Interpretation Comments MAGNESIUM (BEAKER) (test code = 2.1 mg/dL 1.6-2.6 627) BASIC METABOLIC [id number] 07:10:00 Test Item Value Reference Range Interpretation [...] = 700) CBC W/PLT COUNT & AUTO [id number] 06:46:00 Test Item Value Reference Range Interpretation [...] PERCENT (BEAKER) (test code = 2801) CALCIUM, [id number] 06:40:00 Test Item Value Reference Range Interpretation Comments CALCIUM IONIZED (BEAKER) (test 1.06 mmol/L 1.12-1.27 L code = 698) PH, BLOOD (BEAKER) (test code = 7.39 1810) POCT-GLUCOSE [id number] 23:22:00 Test Item Value Reference Range Interpretation Comments POC-GLUCOSE METER 165 mg/dL 70-110 H TESTED AT [facility] 6720 (BEAKER) ([facility] [address] URINE PROTEIN ELECTROPHORESIS, [id number] 18:02:00 Test Item Value Reference Range Interpretation Comments PROTEIN, URINE 305 mg/dL 0-14 H (BEAKER) (test code = 1569) ALBUMIN URINE ELP 70.9 % (BEAKER) (test code = 1018) GAMMA GLOBULIN URINE 29.1 % (BEAKER) (test code = 1015) UPEP, ID-438 (BEAKER) No monoclonal bands (test code = 2604) detected. [id number] Rocio Galindo MD (BEAKER) (test code = (electronic signature) 0053) PROTEIN ELECTROPHORESIS, [id number] 17:57:00 Test Item Value Reference Range Interpretation [...] all globulin fractions. No monoclonal bands detected. [id number] Rocio Galindo MD (BEAKER) (test code = (electronic signature) 7022) PROTEIN TOTAL SERUM, 5.5 gm/dL 6.0-8.3 L SPEP (BEAKER) (test code = 4533) POCT-GLUCOSE [id number] 17:15:00 Test Item Value Reference Range Interpretation Comments POC-GLUCOSE METER 209 mg/dL 70-110 H TESTED AT [facility] 6720 (BEAKER) (test code = [place] 1538) [address] BLOOD GAS, [id number] 15:54:00 Test Item Value Reference Range Interpretation [...] 36.0 % RAD, CHEST, 1 VIEW, NON [id number] 14:07:00Reason for exam:->SOB, hypoxemiaShould this be performed [...] interstitial edema. Signed: Eder Cespedesort Verified Date/Time: 05/19/2017 14:07:07 Reading Location[facility] [id number] Consult Reading Room POCT-GLUCOSE [id number] 11:26:00 Test Item Value Reference Range Interpretation Comments POC-GLUCOSE METER 262 mg/dL 70-110 H TESTED AT [facility] 6720 (BEAKER) (test code = [facility] [place] [facility] 1538) [address] POCT-GLUCOSE [id number] 07:37:00 Test Item Value Reference Range Interpretation Comments POC-GLUCOSE METER 170 mg/dL 70-110 H TESTED AT [facility] 6720 (BEAKER) (test code = [facility] 1538) [address] CALCIUM, [id number] 06:06:00 Test Item Value Reference Range Interpretation Comments CALCIUM IONIZED (BEAKER) (test 1.05 mmol/L 1.12-1.27 L code = 698) PH, BLOOD (BEAKER) (test code = 7.41 1810) [id number] 05:38:00 Test Item Value Reference Range Interpretation Comments PHOSPHORUS (BEAKER) (test code = 3.9 mg/dL 2.3-4.7 604) [id number] 05:38:00 Test Item Value Reference Range Interpretation Comments MAGNESIUM (BEAKER) (test code = 2.2 mg/dL 1.6-2.6 627) BASIC METABOLIC [id number] 05:38:00 Test Item Value Reference Range Interpretation [...] PATIEN TS. CBC W/PLT COUNT & AUTO [id number] 05:09:00 Test Item Value Reference Range Interpretation [...] PERCENT (BEAKER) (test code = 2801) POCT-GLUCOSE [id number] 22:08:00 Test Item Value Reference Range Interpretation Comments POC-GLUCOSE METER 263 mg/dL 70-110 H TESTED AT [place] [address] ([facility]) ([facility] 1538[facility] [id number] POCT-GLUCOSE [id number] 17:20:00 Test Item Value Reference Range Interpretation Comments POC-GLUCOSE METER 233 mg/dL 70-110 H TESTED AT [place] [address] ([facility]) (test code = [facility] 1538) [address] POCT-GLUCOSE [id number] 08:28:00 Test Item Value Reference Range Interpretation Comments POC-GLUCOSE METER 154 mg/dL 70-110 H TESTED AT [place] [address] ([facility]) (test code = [facility] 1538) [address] BASIC METABOLIC [id number] 06:41:00 Test Item Value Reference Range Interpretation [...] S NOT APPLICABLE FOR DIALYSIS PATIEN TS. [id number] 06:35:00 Test Item Value Reference Range Interpretation Comments PHOSPHORUS (BEAKER) (test code = 4.1 mg/dL 2.3-4.7 604) [id number] 06:35:00 Test Item Value Reference Range Interpretation Comments MAGNESIUM (BEAKER) (test code = 2.1 mg/dL 1.6-2.6 627) CALCIUM, [id number] 06:22:00 Test Item Value Reference Range Interpretation Comments CALCIUM IONIZED (BEAKER) (test 1.10 mmol/L 1.12-1.27 L code = 698) PH, BLOOD (BEAKER) (test code = 7.38 1810) CBC W/PLT COUNT & AUTO [id number] 06:04:00 Test Item Value Reference Range Interpretation [...] PERCENT (BEAKER) (test code = 2801) POCT-GLUCOSE [id number] 03:44:00 Test Item Value Reference Range Interpretation Comments POC-GLUCOSE METER 220 mg/dL 70-110 H TESTED AT [place] [address] ([facility]) (test code = [facility] 1538) [address] POCT-GLUCOSE [id number] 18:27:00 Test Item Value Reference Range Interpretation Comments POC-GLUCOSE METER 256 mg/dL 70-110 H TESTED AT [place] [address] ([facility] [place]) (test code = [facility] 1538) [address] POCT-GLUCOSE [id number] 15:45:00 Test Item Value Reference Range Interpretation Comments POC-GLUCOSE METER 278 mg/dL 70-110 H TESTED AT [place] [address] ([facility] [place]) (test code = [facility] 1538) [address] POCT-GLUCOSE [id number] 13:22:00 Test Item Value Reference Range Interpretation Comments POC-GLUCOSE METER 278 mg/dL 70-110 H TESTED AT [place] [address] ([facility]) (test code = [facility] 1538) [address] PLATELET AGGREGATION: FUNCTION [id number] 13:18:00 Test Item Value Reference Range Interpretation Comments WEAK ADP 66 % 60-91 RESULT(BEAKER) (test code = 2135) PLATELET FUNCTION 60-100% indicates SCREEN INTERP (BEAKER) normal platelet (test code = 2173) function [id number] Rigoberto Duenas MD (BEAKER) (test code = (electronic signature) 5583) PLATELET COUNT AGG 204 K/CU MM 150-450 (BEAKER) (test code = 2656) POCT-GLUCOSE [id number] 08:27:00 Test Item Value Reference Range Interpretation Comments POC-GLUCOSE METER 189 mg/dL 70-110 H TESTED AT [facility] 6720 ([facility]) (test code = [facility] Dylon [facility] 1538) [address] CALCIUM, [id number] 06:12:00 Test Item Value Reference Range Interpretation Comments CALCIUM IONIZED (BEAKER) (test 1.07 mmol/L 1.12-1.27 L code = 698) PH, BLOOD (BEAKER) (test code = 7.36 1810) [id number] 05:43:00 Test Item Value Reference Range Interpretation Comments PHOSPHORUS (BEAKER) (test code = 3.6 mg/dL 2.3-4.7 604) [id number] 05:43:00 Test Item Value Reference Range Interpretation Comments MAGNESIUM (BEAKER) (test code = 2.1 mg/dL 1.6-2.6 627) BASIC METABOLIC [id number] 05:43:00 Test Item Value Reference Range Interpretation [...] PATIEN TS. CBC W/PLT COUNT & AUTO [id number] 05:05:00 Test Item Value Reference Range Interpretation [...] LYMPHOCYTES ABSOLUTE COUNT 2.37 K/ L 1.18-3.74 ([facility]) (test code = 414) MONOCYTES ABSOLUTE COUNT (BEAKER) 0.50 K/ L 0.24-0.36 H (test code = 415) EOSINOPHILS ABSOLUTE COUNT 0.27 K/ L 0.04-0.36 (AKER) (test code = 416) BASOPHILS ABSOLUTE COUNT (BEAKER) 0.06 K/ L 0.01-0.08 (test code = 417) IMMATURE GRANULOCYTES-RELATIVE 0 % 0-1 PERCENT ([facility]) (test code = 2801) POCT-GLUCOSE [id number] 21:32:00 Test Item Value Reference Range Interpretation Comments POC-GLUCOSE METER 176 mg/dL 70-110 H TESTED AT [place] [address] ([facility]) (test code = [facility] 1538) [address] POCT-GLUCOSE [id number] 20:27:00 Test Item Value Reference Range Interpretation Comments POC-GLUCOSE METER 161 mg/dL 70-110 H TESTED AT [place] [address] ([facility]) (test code = [facility] 1538) [address] POCT-GLUCOSE [id number] 18:23:00 Test Item Value Reference Range Interpretation Comments POC-GLUCOSE METER 185 mg/dL 70-110 H TESTED AT [place] [address] ([facility]) (test code = [facility] 1538) [address] POCT-GLUCOSE [id number] 13:26:00 Test Item Value Reference Range Interpretation Comments POC-GLUCOSE METER 282 mg/dL 70-110 H TESTED AT [place] [address] ([facility]) (test code = [facility] 1538) [address] URINE [id number] 10:12:00 Test Item Value Reference Range Interpretation Comments CULTURE ([facility]) (test >100,000 col/mL skin code = 1095) todd POCT-GLUCOSE [id number] 09:01:00 Test Item Value Reference Range Interpretation Comments POC-GLUCOSE METER 268 mg/dL 70-110 H TESTED AT [place] [address] ([facility]) (test code = [facility] 1538) [address] CALCIUM, [id number] 05:39:00 Test Item Value Reference Range Interpretation Comments CALCIUM IONIZED ([facility]) (test 0.84 mmol/L 1.12-1.27 L code = 698) PH, BLOOD (BEAKER) (test code = 7.35 1810) BASIC METABOLIC [id number] 05:07:00 Test Item Value Reference Range Interpretation [...] S NOT APPLICABLE FOR DIALYSIS PATIEN TS. [id number] 05:06:00 Test Item Value Reference Range Interpretation Comments PHOSPHORUS (BEAKER) (test code = 3.2 mg/dL 2.3-4.7 604) [id number] 05:06:00 Test Item Value Reference Range Interpretation Comments MAGNESIUM (BEAKER) (test code = 2.3 mg/dL 1.6-2.6 627) CBC W/PLT COUNT & AUTO [id number] 04:42:00 Test Item Value Reference Range Interpretation [...] = 2801) RHEUMATOID FACTOR AB, REFLEX TO [id number] 01:52:00 Test Item Value Reference Range Interpretation Comments RHEUMATOID FACTOR (BEAKER) (test Negative code = 573) POCT-GLUCOSE [id number] 21:57:00 Test Item Value Reference Range Interpretation Comments POC-GLUCOSE METER 105 mg/dL 70-110 TESTED AT [facility] 6720 (AKER) (test code = JULIANO REYEZ 1538) [address] POCT-GLUCOSE [id number] 18:11:00 Test Item Value Reference Range Interpretation Comments POC-GLUCOSE METER 312 mg/dL 70-110 H Notified Dylon Hassan MD/NATHAN (ROBERT) (test code = AT [facility] 67[address] 1538) [facility] 7703 0 PET, CARDIAC PERFUSION MULTIPLE STUDIES, REST AND [id number] 16:28:00 Reason for exam:->pvcs, known cadFINAL REPORT PROCEDURE: Rest/Stress MYOCARDIAL PERFUSION PET with regadenoson\XA9\ CPT CODE: 59300 INDICATION: Defined extent and severity of known [...] is 23%. LVEF at stress is 36%. [facility] Guide CT images revealed a right pleural effusion [...] pleural and pericardial effusions. 7. No previous [facility] study for comparison. NONINVASIVE RISK STRATIFICATION: The above findings are considered high risk (>3% annual mortality rate) based on the following criteria: - Severe resting left ventricular dysfunction (LVEF 35%)- Stress-induced large perfusion defect (particularly if anterior)(JACC. 2012;59(9):857-81.) Signed: Last Lopez Verified Date/Time: 05/15/2017 16:28:12 Reading Location: [address] ReadingRoom RAD, CHEST, 1 VIEW, NON [id number] 15:56:00Reason for exam:->SOBShould this be performed at the bedside?->YesFINAL REPORT Comparison: 05/14/2017 TECHNIQUE: Single view of the chest FINDINGS: There is a small right pleural effusion with nonspecific airspace disease. This is unchanged. Left lung is grossly clear. Cardiac silhouette is enlarged. IMPRESSION: 1. No acute cardiopulmonary disease. Signed: Sixto Monk MDReport Verified Date/Time: 05/15/2017 15:56:39 Reading Location: [facility] iology Reading Room POCT-GLUCOSE [id number] 12:54:00 Test Item Value Reference Range Interpretation Comments POC-GLUCOSE METER 308 mg/dL 70-110 H Notified Dylon Hassan MD/NATHAN (ROBERT) (test code = AT [facility] 6720 [address]8) [place] [address] U/S, RENAL WITH [id number] 11:04:00Reason for exam:->arturo, htnShould this be performed [...] Hobbs Verified Date/Time: 05/15/2017 11:04:01 Reading Location: [facility] P006J Ultrasound Reading Room ANA TITER AND [id number] 10:57:00 Test Item Value Reference Range Interpretation Comments ROGER TITER (BEAKER) (test code = :160 1541) ROGER PATTERN (BEAKER) (test code = Speckled 1781) ANTI-NUCLEAR ANTIBODY (ROGER)2017-05-15 10:56:00 Test Item Value Reference Range Interpretation Comments ANTI-NUCLEAR ANTIBODY (ROGER) (BEAKER) Positive Negative A (test code = 418) CALCIUM, [id number] 06:00:00 Test Item Value Reference Range Interpretation Comments CALCIUM IONIZED (BEAKER) (test 1.07 mmol/L 1.12-1.27 L code = 698) PH, BLOOD (BEAKER) (test code = 7.28 1810) HEPATITIS PANEL, [id number] 05:01:00 Test Item Value Reference Range Interpretation Comments HEPATITIS A IGM ANTIBODY (BEAKER) Nonreactive Nonreactive (test code = 498) HEPATITIS B CORE IGM ANTIBODY Nonreactive Nonreactive (BEAKER) (test code = 645) HEPATITIS C ANTIBODY (BEAKER) Nonreactive Nonreactive (test code = 367) HEPATITIS B SURFACE ANTIGEN (2) Nonreactive Nonreactive (BEAKER) (test code = 2585) BASIC METABOLIC [id number] 04:48:00 Test Item Value Reference Range Interpretation [...] NOT APPLICABLE FOR DIALYSIS PATIEN TS. URIC [id number] 04:41:00 Test Item Value Reference Range Interpretation Comments URIC ACID (BEAKER) (test code = 10.3 mg/dL 2.6-7.2 H 773) [id number] 04:41:00 Test Item Value Reference Range Interpretation Comments MAGNESIUM (BEAKER) (test code = 2.0 mg/dL 1.6-2.6 627) [id number] 04:41:00 Test Item Value Reference Range Interpretation Comments PHOSPHORUS (BEAKER) (test code = 4.2 mg/dL 2.3-4.7 604) COMPLEMENT COMPONENT [id number] 04:38:00 Test Item Value Reference Range Interpretation Comments C4 COMPLEMENT (BEAKER) (test code = 28 mg/dL 15-57 394) COMPLEMENT COMPONENT [id number] 04:38:00 Test Item Value Reference Range Interpretation Comments C3 COMPLEMENT (BEAKER) (test code = 103 mg/dL 82-193 393) CBC W/PLT COUNT & AUTO [id number] 04:22:00 Test Item Value Reference Range Interpretation [...] PERCENT (BEAKER) (test code = 2801) POCT-GLUCOSE [id number] 21:46:00 Test Item Value Reference Range Interpretation Comments POC-GLUCOSE METER 173 mg/dL 70-110 H TESTED AT [facility] 67 ([facility]) (test code = [facility] 1538) 267[address] POCT-GLUCOSE [id number] 21:46:00 Test Item Value Reference Range Interpretation Comments POC-GLUCOSE METER 154 mg/dL 70-110 H TESTED AT [place] [address] ([facility]) (test code = [facility] 1538) [address] POCT-GLUCOSE [id number] 18:17:00 Test Item Value Reference Range Interpretation Comments POC-GLUCOSE METER 175 mg/dL 70-110 H TESTED AT [place] [address] ([facility]) (test code = [facility] 1538) [address] RAD, CHEST, 1 VIEW, NON [id number] 14:56:00Reason for exam:->SOBShould this be performed at the bedside?->YesFINAL REPORT INDICATION: SOB COMPARISON: May 13, 2017 TECHNIQUE: Chest radiograph, single view, portable technique. FINDINGS / IMPRESSION: Enlarged heart shadow, small rightpleural effusion, and pulmonary venous congestion, again demonstrated. No pneumothorax or consolidation. Osseous structures unremarkable. Signed: Satnam Jean MDReport Verified Date/Time: 05/14/2017 14:56:58 Reading Location: [facility] Mammo Reading Room POCT-GLUCOSE [id number] 12:18:00 Test Item Value Reference Range Interpretation Comments POC-GLUCOSE METER 313 mg/dL 70-110 H TESTED AT [facility] 6720 (BEAKER) (test code = [place] 1538) [address] HIV-1 ANTIGEN WITH HIV-1/2 [id number] 12:07:00 Test Item Value Reference Range Interpretation Comments HIV-1 ANTIGEN WITH HIV 1\T\2 Nonreactive Nonreactive ANTIBODY (2) (BEAKER) (test code = 2586) CALCIUM, [id number] 06:37:00 Test Item Value Reference Range Interpretation Comments CALCIUM IONIZED (BEAKER) (test 1.08 mmol/L 1.12-1.27 L code = 698) PH, BLOOD (BEAKER) (test code = 7.25 1810) BASIC METABOLIC [id number] 06:26:00 Test Item Value Reference Range Interpretation [...] pg/mL 0-100 H (test code = 700) [id number] 06:25:00 Test Item Value Reference Range Interpretation Comments PHOSPHORUS (BEAKER) (test code = 5.7 mg/dL 2.3-4.7 H 604) [id number] 06:25:00 Test Item Value Reference Range Interpretation Comments MAGNESIUM (BEAKER) (test code = 1.5 mg/dL 1.6-2.6 L 627) CBC W/PLT COUNT & AUTO [id number] 06:07:00 Test Item Value Reference Range Interpretation [...] PERCENT (BEAKER) (test code = 2801) POCT-GLUCOSE [id number] 22:38:00 Test Item Value Reference Range Interpretation Comments POC-GLUCOSE METER 262 mg/dL 70-110 H TESTED AT [facility] 6720 (BEAKER) (test code = JULIANO Osborne [facility] 1538) [address] PROTEIN, RANDOM [id number] 22:18:00 Test Item Value Reference Range Interpretation Comments PROTEIN, URINE (BEAKER) (test code 641 mg/dL 0-14 H = 1569) CREATININE, RANDOM [id number] 22:07:00 Test Item Value Reference Range Interpretation Comments CREATININE URINE (BEAKER) (test 124.9 mg/dL code = 375) Reference Range: No NormalsURINALYSIS W/ [id number] 22:03:00 Test Item Value Reference Range Interpretation [...] 1585) SOURCE(BEAKER) (test code = Urine, Voided 0296) [id number] 19:49:00 Test Item Value Reference Range Interpretation Comments SODIUM (BEAKER) (test 136 meq/L 136-145 code = 381) POTASSIUM (BEAKER) 5.1 meq/L 3.5-5.1 Specimen slightly (test code = 379) hemolyzed CHLORIDE (BEAKER) 104 meq/L 98-107 (test code = 382) CO2 (BEAKER) (test 25 meq/L 22-29 code = 355) Call if K > 5POCT-GLUCOSE [id number] 11:37:00 Test Item Value Reference Range Interpretation Comments POC-GLUCOSE METER 293 mg/dL 70-110 H TESTED AT [facility] 6720 (BEAKER) (test code = JULIANO Osborne [facility] 1538) [address] RAD, CHEST, 1 VIEW, NON [id number] 10:22:00Reason for exam:->SOBShould this be performed at the bedside?->YesFINAL REPORT Chest one view Discussion: There is cardiomegaly and interstitial congestion. A small right-sided effusion is noted. No pneumothorax. IMPRESSIONS: Suspected CHF. Signed: Jeannette Nava Verified Date/Time: 05/13/2017 10:22:34 Reading Location: [facility] Radiology Reading Room POCT-GLUCOSE METER 2017-05-13 08:34:00 Test Item Value Reference Range Interpretation Comments POC-GLUCOSE METER 178 mg/dL 70-110 H TESTED AT [facility] 6720 (BEAKER) (test code = [facility] 1538) [address] POCT-GLUCOSE [id number] 06:53:00 Test Item Value Reference Range Interpretation Comments POC-GLUCOSE METER 167 mg/dL 70-110 H TESTED AT [facility] 6720 (BEAKER) (test code = [facility] 1538) [address] [id number] 04:48:00 Test Item Value Reference Range Interpretation Comments BLOOD UREA NITROGEN (BEAKER) (test 36 mg/dL 7-21 H code = 354) [id number] 04:48:00 Test Item Value Reference Range Interpretation Comments SODIUM (BEAKER) (test code = 381) 139 meq/L 136-145 POTASSIUM (BEAKER) (test code = 5.2 meq/L 3.5-5.1 H 379) CHLORIDE (BEAKER) (test code = 382) 109 meq/L 98-107 H CO2 (BEAKER) (test code = 355) 23 meq/L 22-29 [id number] 04:48:00 Test Item Value Reference Range Interpretation [...] WBC 0-0 (BEAKER) (test code = 413) [id number] 23:29:00 Test Item Value Reference Range Interpretation Comments ACTIVATED CLOTTING TIME 136 sec TEST ED AT [place] [address] ([facility]) (test code = MATTHIASAMANDA Osborne [place] [address]) [address] [id number] 20:13:00 Test Item Value Reference Range Interpretation Comments ACTIVATED CLOTTING TIME 175 sec TEST ED AT [place] [address] ([facility]) (test code = MATTHIASAMANDA Osborne [place] [address]) [address] [id number] 18:36:00 Test Item Value Reference Range Interpretation Comments ACTIVATED CLOTTING TIME 202 sec TEST ED AT [place] [address] ([facility]) (test code = JULIANO Osborne [place] [address]) [address] [id number] 18:03:00 Test Item Value Reference Range Interpretation Comments ACTIVATED CLOTTING TIME 208 sec TEST ED AT [place] [address] ([facility]) (test code = MATTHIASNC Dylon [place] [address]) [address] BASIC METABOLIC [id number] 11:57:00 Test Item Value Reference Range Interpretation [...] NOT APPLICABLE FOR DIALYSIS PATIEN TS. PROTHROMBIN [id number] 11:15:00 Test Item Value Reference Range Interpretation [...] if on CoumadinCBC W/PLT COUNT & AUTO [id number] 11:01:00 Test Item Value Reference Range Interpretation [...] PERCENT (BEAKER) (test code = 2801) POCT-GLUCOSE [id number] 12:35:00 Test Item Value Reference Range Interpretation Comments POC-GLUCOSE METER 249 mg/dL 70-110 H TESTED AT [facility] 6720 (BEAKER) (test code = [place] 1538) [address] POCT-GLUCOSE [id number] 09:10:00 Test Item Value Reference Range Interpretation Comments POC-GLUCOSE METER 155 mg/dL 70-110 H TESTED AT [facility] 6720 (BEAKER) (test code = JULIANO Osborne [facility] 1538) [address] BASIC METABOLIC [id number] 05:39:00 Test Item Value Reference Range Interpretation [...] S NOT APPLICABLE FOR DIALYSIS PATIEN TS. [id number] 05:27:00 Test Item Value Reference Range Interpretation Comments PHOSPHORUS (BEAKER) (test code = 5.0 mg/dL 2.3-4.7 H 604) [id number] 05:27:00 Test Item Value Reference Range Interpretation Comments MAGNESIUM (BEAKER) (test code = 1.6 mg/dL 1.6-2.6 627) POCT-GLUCOSE [id number] 05:25:00 Test Item Value Reference Range Interpretation Comments POC-GLUCOSE METER 144 mg/dL 70-110 H TESTED AT [place] [address] ([facility]) (test code = [facility] 1538) [address] PROTHROMBIN [id number] 04:58:00 Test Item Value Reference Range Interpretation Comments PROTIME (BEDANIELA) (test code = 14.2 seconds 11.7-14.7 759) INR ([facility]) (test code = 370) 1.1 <=5.9 RECOMMENDED COUMADIN/WARFARIN INR THERAPY RANGESSTANDARD DOSE: 2.0 - 3.0 Includes: PROPHYLAXIS forvenous thrombosis, systemic embolization; TREATMENT for venous thrombosis and/or pulmonary embolus.HIGH RISK: Target INR is 2.5-3.5 for patients with mechanical heart valves.POCT-GLUCOSE [id number] 23:55:00 Test Item Value Reference Range Interpretation Comments POC-GLUCOSE METER 86 mg/dL 70-110 TESTED AT [place] [address] ([facility]) (test code = [facility] [address] 1538) B-TYPE NATRIURETIC FACTOR (BNP)2017-04-22 18:13:00 Test Item Value Reference Range Interpretation Comments B-TYPE NATRIURETIC PEPTIDE 1203 pg/mL 0-100 H (BEAKER) (test code = 700) POCT-GLUCOSE [id number] 17:36:00 Test Item Value Reference Range Interpretation Comments POC-GLUCOSE METER 259 mg/dL 70-110 H TESTED AT [facility] 67 ([facility]) (test code = JULIANO Osborne [facility] 1538) [address] HEMOGLOBIN [id number] 14:24:00 Test Item Value Reference Range Interpretation Comments HEMOGLOBIN A1C (BEAKER) (test code = 10.5 % 4.3-6.1 H 368) POCT-GLUCOSE [id number] 12:34:00 Test Item Value Reference Range Interpretation Comments POC-GLUCOSE METER 207 mg/dL 70-110 H TESTED AT [place] [address] ([facility]) (test code = JULIANO Osborne [facility] 1538) [address] [id number] 07:53:00 Test Item Value Reference Range Interpretation Comments PHOSPHORUS (BEAKER) (test code = 3.9 mg/dL 2.3-4.7 604) [id number] 07:53:00 Test Item Value Reference Range Interpretation Comments MAGNESIUM (BEAKER) (test code = 1.6 mg/dL 1.6-2.6 627) BASIC METABOLIC [id number] 07:53:00 Test Item Value Reference Range Interpretation [...] NOT APPLICABLE FOR DIALYSIS PATIEN TS. TROPONIN [id number] 07:29:00 Test Item Value Reference Range Interpretation [...] acidosis, acute neurological disease, and persistent tachyarrhythmia.PROTHROMBIN [id number] 07:01:00 Test Item Value Reference Range Interpretation Comments PROTIME (ROBERT) (test code = 13.8 seconds 11.7-14.7 759) INR (ROBERT) (test code = 370) 1.1 <=5.9 RECOMMENDED COUMADIN/WARFARIN INR THERAPY RANGESSTANDARD DOSE: 2.0 - 3.0 Includes: PROPHYLAXIS forvenous thrombosis, systemic embolization; TREATMENT for venous thrombosis and/or pulmonary embolus.HIGH RISK: Target INR is 2.5-3.5 for patients with mechanical heart valves.POCT-GLUCOSE [id number] 06:28:00 Test Item Value Reference Range Interpretation Comments POC-GLUCOSE METER 198 mg/dL 70-110 H TESTED AT [facility] 6720 (ROBERT) (test code = [place]O [place] 1538) [address] CREATINE KINASE (CK), TOTAL AND [id number] 00:49:00 Test Item Value Reference Range Interpretation Comments CREATINE KINASE TOTAL (ROBERT) 69 U/L 29-200 (test code = 380) CREATINE KINASE-MB (ROBERT) (test 4.3 ng/mL 0.0-6.6 code = 750) CREATINE KINASE-MB INDEX (ROBERT) 6.2 % (test code = 395) CK-MB Reference Range:<6.7 Normal6.7-10.0 Borderline>10.0 AbnormalTROPONIN [id number] 00:49:00 Test Item Value Reference Range Interpretation [...] acidosis, acute neurological disease, and persistent tachyarrhythmia.POCT-GLUCOSE [id number] 20:44:00 Test Item Value Reference Range Interpretation Comments POC-GLUCOSE METER 269 mg/dL 70-110 H TESTED AT [facility] 67 (ROBERT) (test code = JULIANO REYE[place] 1538) [address]
[2019-11-18 22:04] LABS: Absolute Lymphocytes (CBC) 0.8 K/uL (0.7-4.9); Basophils % 0.5 % (0-1.3); Hematocrit 30.9 % (36.0-45.0); Lymphocytes % 6.1 % (15.3-44.8); MPV 7.4 fL (7.6-11.3); RBC Red Blood Cell Count 3.48 M/uL (3.86-4.86)
[2019-11-18 22:05] LABS: Protime INR 1.32
[2019-11-18 22:45] LABS: Albumin 2.5 g/dL (3.4-5.0); Bilirubin Direct 0.3 mg/dL (0-0.2); Bilirubin Total 0.6 mg/dL (0.2-1.0); Magnesium 1.9 mg/dL (1.8-2.4); Potassium 4.7 mmol/L (3.5-5.1); Protein, Total 7.3 g/dL (6.4-8.2); Troponin (Emerg Dept Use Only) 0.06 ng/mL (0.0-0.045)
[2019-11-18 23:08] LABS: Blood Morphology Comment NOT SEEN (NOT SEEN); Platelet Estimate ADEQ
[2019-11-18 23:45] LABS: Urine Blood NEGATIVE (NEG); Urine Glucose NEGATIVE (NEG); Urine Protein 3+ (NEG); Urine Specific Gravity 1.025 (1.005-1.030); Urine pH 5.5 (5.0-7.0)
--- NOTE | 2019-11-18 23:51 | ER ---
Nurse's Notes [facility] Name: Christy Priest Age: 64 yrs Sex: Female : 1955 Arrival Date: 11/18/2019 Time: 19:43 Bed 19 Private MD: Diagnosis: CHF Exacerbation Presentation: 11/17 19:44 Chief complaint: EMS states: Son called as Pt is not acting right. Pt states she is not wh feeling well. EMS states AO x4, [facility]. Son states Pt had Hx of UTI 3 weeks ago and wasn't sure if Pt was able to finish her ABX. Coronavirus screen:. Care prior to arrival: Glucose check: 88. 19:44 Method Of Arrival: EMS: [facility] 19:49 Ebola Screen: No symptoms or risks identified at this time. Initial Sepsis Screen: Does vc the patient meet any 2 criteria? HR > 90 bpm. No. Patient's initial sepsis screen is negative. Does the patient have a suspected source of infection? No. Patient's initial sepsis screen is negative. Risk Assessment: Do you want to hurt yourself or someone else? Patient reports no desire to harm self or others. Onset of symptoms was November 18, 2019. 19:49 Acuity: DENNY 3 vc Triage Assessment: 20:00 General: Appears in no apparent distress. uncomfortable, unkempt, Behavior is agitated, vc anxious. Respiratory: Reports shortness of breath labored breathing Onset: The symptoms/episode began/occurred today, the patient has moderate shortness of breath. Historical: - Allergies: 19:53 Augmentin; vc 19:53 basil; vc 19:53 Clindamycin; vc 19:53 HYDROCODONE; vc 19:53 Morphine; vc 19:53 Nitroglycerin; vc 19:53 Tramadol HCl; vc 19:53 Trazodone; vc 19:53 Vancomycin; vc 19:53 Vicodin; vc - PMHx: 19:53 CHF; COPD; Diabetes - IDDM; ESRD; High Cholesterol; Hypertension; triple bypass; vc uterine cancer; - Immunization history:: Adult Immunizations up to date. - Social history:: Smoking status: Patient reports the use of cigarette tobacco products, unknown amount. Screenin:00 Abuse screen: Denies threats or abuse. Nutritional screening: No deficits noted. vc Tuberculosis screening: No symptoms or risk factors identified. Fall Risk None identified. Assessment: 19:53 Reassessment: Patient lethargic and unable to stay awake long enough to answer vc questions. 19:53 Cardiovascular: Rhythm is sinus rhythm. Respiratory: Breath sounds are diminished vc bilaterally. 20:00 General: Appears in no apparent distress. uncomfortable, unkempt. Neuro: Level of vc Consciousness is lethargic, listless, Oriented to person, situation. GI: No signs and/or symptoms were reported involving the gastrointestinal system. : No signs and/or symptoms were reported regarding the genitourinary system. 20:33 Reassessment: Patient in room screaming for help, patient asked what was wrong, she vc stated she had to pee, brought bed spencer into room, patient states she can not use a bed spencer, she needs to get up. Informed patient she can not walk to the bathroom as she is covid positive and all bed side commodes are in use, patient refuses to use bed spencer. 21:00 Reassessment: Patient appears in no apparent distress at this time. Patient and/or vc family updated on plan of care and expected duration. Pain level reassessed. 22:00 Reassessment: Patient appears in no apparent distress at this time. Patient and/or vc family updated on plan of care and expected duration. Pain level reassessed. 22:39 Pain: Complains of pain in generalized. Cardiovascular:. Respiratory: Airway is patent vc Respiratory effort is even, unlabored, 23:00 Reassessment: Patient appears in no apparent distress at this time. Patient and/or vc family updated on plan of care and expected duration. Pain level reassessed. 11/18 00:00 Reassessment: Patient appears in no apparent distress at this time. Patient and/or vc family updated on plan of care and expected duration. Pain level reassessed. 01:00 Reassessment: Patient appears in no apparent distress at this time. Patient and/or vc family updated on plan of care and expected duration. Pain level reassessed. Patient states feeling better. Patient states symptoms have improved. 02:00 Reassessment: Patient appears in no apparent distress at this time. Patient and/or vc family updated on plan of care and expected duration. Pain level reassessed. Patient states symptoms have improved. 03:00 Reassessment: Patient appears in no apparent distress at this time. Patient and/or vc family updated on plan of care and expected duration. Pain level reassessed. 03:46 Reassessment: Patient appears in no apparent distress at this time. Patient and/or vc family updated on plan of care and expected duration. Pain level reassessed. Patient states feeling better. Patient states symptoms have improved. 03:56 Reassessment: Attempted to call second floor to give report, no one answered the phone, vc will call back in 5 minutes. Vital Signs: 11/17 19:49 BP 173 / 81; Pulse 75; Resp 17; Temp 99.1; Pulse Ox 100% on 3 lpm NC; vc 20:00 BP 180 / 92; Pulse 76; Resp 18; Pulse Ox 100% on 3 lpm NC; vc 21:00 BP 167 / 79; Pulse 76; Resp 18; Pulse Ox 100% on 3 lpm NC; vc 22:00 BP 179 / 98; Pulse 80; Resp 18; Pulse Ox 100% on 3 lpm NC; vc 23:00 BP 164 / 85; Pulse 78; Resp 17; Pulse Ox 100% on 3 lpm NC; vc 11/18 00:00 BP 156 / 66; Pulse 75; Resp 13; Temp 98.4; Pulse Ox 100% on 3 lpm NC; Weight 81.65 kg; vc Height 5 ft. 7 in. (170.18 cm); Pain 0/10; 01:00 BP 167 / 74; Pulse 72; Resp 18; Pulse Ox 100% on 3 lpm NC; Pain 0/10; vc 02:00 BP 172 / 81; Pulse 72; Resp 12; Pulse Ox 100% on 3 lpm NC; vc 03:00 BP 175 / 78; Pulse 71; Resp 17; Pulse Ox 100% on 3 lpm NC; vc 03:51 BP 154 / 74; Pulse 67; Resp 14; Temp 98.7(O); Pulse Ox 98% ; vc 00:00 Body Mass Index 28.19 (81.65 kg, 170.18 cm) vc ED Course: 11/17 19:43 Patient arrived in ED. cl3 19:45 Miguel Nicholas MD is Attending Physician. mh7 19:49 Dipti De La Rosa, GUILHERME is Primary Nurse. vc 19:52 Triage completed. vc 20:00 Arm band placed on. vc 20:00 Patient has correct armband on for positive identification. Bed in low position. Call vc light in reach. solution analyst on. Pulse ox on. NIBP on. 21:29 XRAY Chest (1 view) In Process Unspecified. EDMS 21:45 Greene cath inserted, using sterile technique, 18 Fr., by pa, balloon inflated, to vc gravity drainage, urine specimen collected. returned cloudy urine. Patient tolerated well. 23:49 Scout Cadena MD is Hospitalizing Provider. [facility] 11/18 04:35 No provider procedures requiring assistance completed. Patient admitted, IV remains in vc place. Administered Medications: 00:42 Drug: Lasix 40 mg Route: IVP; Site: right antecubital; vc 01:22 Follow up: Response: No adverse reaction 00:42 Drug: Aspirin Chewable Tablet 162 mg Route: PO; vc 01:22 Follow up: Response: No adverse reaction vc Outcome: 11/17 23:50 Decision to Hospitalize by Provider. [facility] 11/18 04:36 Admitted to Med/surg accompanied by nurse, via stretcher, room 216, Report called to GUILHERME dacosta Condition: stable Instructed on the need for admit. 04:36 Patient left the ED. Signatures: Dispatcher [employer] EDLA Nicholas Bowers Charde cl3 Dipti De La Rosa RN RN Miguel Nicholas MD MD 7
--- NOTE | 2019-11-18 23:51 | EDPHYS ---
Physician Documentation [facility] Name: Christy Priest Age: 64 yrs Sex: Female : 1955 Arrival Date: 11/18/2019 Time: 19:43 Bed 19 Private MD: ED Physician Miguel Nicholas HPI: 11/17 21:17 This 64 yrs old Female presents to ER via EMS with complaints of Breathing mh7 Difficulty, Back Pain. 21:17 The patient has shortness of breath at rest. mh7 21:17 Onset: The symptoms/episode began/occurred yesterday. Duration: The symptoms are mh7 intermittent, with no pattern. The patient's shortness of breath is aggravated by exertion, is alleviated by application of supplemental oxygen. Associated signs and symptoms: Pertinent negatives: chest pain, non-productive cough, productive cough, diaphoresis, dizziness, fever, hemoptysis, loss of consciousness, nausea, numbness in extremities, visual changes, vomiting. Severity of symptoms: At their worst the symptoms were moderate today, in the emergency department the symptoms have improved mildly. The patient has experienced similar episodes in the past, multiple times. Historical: - Allergies: 19:53 Augmentin; vc 19:53 basil; vc 19:53 Clindamycin; vc 19:53 HYDROCODONE; vc 19:53 Morphine; vc 19:53 Nitroglycerin; vc 19:53 Tramadol HCl; vc 19:53 Trazodone; vc 19:53 Vancomycin; vc 19:53 Vicodin; vc - PMHx: 19:53 CHF; COPD; Diabetes - IDDM; ESRD; High Cholesterol; Hypertension; triple bypass; vc uterine cancer; - Immunization history:: Adult Immunizations up to date. - Social history:: Smoking status: Patient reports the use of cigarette tobacco products, unknown amount. ROS: 21:17 Constitutional: Negative for fever, chills, and weight loss, Eyes: Negative for injury, mh7 pain, redness, and discharge, ENT: Negative for injury, pain, and discharge, Neck: Negative for injury, pain, and swelling, Cardiovascular: Negative for chest pain, palpitations, and edema, Abdomen/GI: Negative for abdominal pain, nausea, vomiting, diarrhea, and constipation, Back: Negative for injury and pain, : Negative for injury, bleeding, discharge, and swelling, Neuro: Negative for headache, weakness, numbness, tingling, and seizure, Psych: Negative for depression, anxiety, suicide ideation, homicidal ideation, and hallucinations, Allergy/Immunology: Negative for hives, rash, and allergies, Endocrine: Negative for neck swelling, polydipsia, polyuria, polyphagia, and marked weight changes, Hematologic/Lymphatic: Negative for swollen nodes, abnormal bleeding, and unusual bruising. Exam: 21:17 Head/Face: Normocephalic, atraumatic. Neck: Trachea midline, no thyromegaly or masses mh7 palpated, and no cervical lymphadenopathy. Supple, full range of motion without nuchal rigidity, or vertebral point tenderness. No Meningismus. Chest/axilla: Normal chest wall appearance and motion. Nontender with no deformity. No lesions are appreciated. Cardiovascular: Regular rate and rhythm with a normal S1 and S2. No gallops, murmurs, or rubs. Normal PMI, no JVD. No pulse deficits. 21:17 Abdomen/GI: Soft, non-tender, with normal bowel sounds. No distension or tympany. No guarding or rebound. No evidence of tenderness throughout. Back: No spinal tenderness. No costovertebral tenderness. Full range of motion. 21:17 Neuro: Awake and alert, GCS 15, oriented to person, place, time, and situation. Cranial nerves II-XII grossly intact. Motor strength 5/5 in all extremities. Sensory grossly intact. Cerebellar exam normal. Normal gait. Psych: Awake, alert, with orientation to person, place and time. Behavior, mood, and affect are within normal limits. 21:17 Constitutional: The patient appears in no acute distress, alert, awake, uncomfortable. 21:17 Respiratory: the patient does not display signs of respiratory distress, Respirations: prolonged exhalation, that is mild, Breath sounds: rhonchi, that are mild, are scattered, Respiratory rate: 17 Vital Signs: 19:49 BP 173 / 81; Pulse 75; Resp 17; Temp 99.1; Pulse Ox 100% on 3 lpm NC; vc 20:00 BP 180 / 92; Pulse 76; Resp 18; Pulse Ox 100% on 3 lpm NC; vc 21:00 BP 167 / 79; Pulse 76; Resp 18; Pulse Ox 100% on 3 lpm NC; vc 22:00 BP 179 / 98; Pulse 80; Resp 18; Pulse Ox 100% on 3 lpm NC; vc 23:00 BP 164 / 85; Pulse 78; Resp 17; Pulse Ox 100% on 3 lpm NC; vc 11/18 00:00 BP 156 / 66; Pulse 75; Resp 13; Temp 98.4; Pulse Ox 100% on 3 lpm NC; Weight 81.65 kg; vc Height 5 ft. 7 in. (170.18 cm); Pain 0/10; 01:00 BP 167 / 74; Pulse 72; Resp 18; Pulse Ox 100% on 3 lpm NC; Pain 0/10; vc 02:00 BP 172 / 81; Pulse 72; Resp 12; Pulse Ox 100% on 3 lpm NC; vc 03:00 BP 175 / 78; Pulse 71; Resp 17; Pulse Ox 100% on 3 lpm NC; vc 03:51 BP 154 / 74; Pulse 67; Resp 14; Temp 98.7(O); Pulse Ox 98% ; vc 00:00 Body Mass Index 28.19 (81.65 kg, 170.18 cm) vc MDM: 11/17 20:[address] [facility] 23:48 Differential diagnosis: Anemia Bronchitis CHF exacerbation, Chronic Obstructive 7 Pulmonary Disease Myocardial Infarction pneumonia, Pneumothorax pulmonary edema. Data reviewed: vital signs, nurses notes, EMS record, old medical records, lab test result(s), cardiac enzymes, CBC, electrolytes, urinalysis, EKG, radiologic studies, plain films. Data interpreted: Pulse oximetry: on 3L(s) per nasal canula, is 100 %. Interpretation: acceptable. Counseling: I had a detailed discussion with the patient and/or guardian regarding: the historical points, exam findings, and any diagnostic results supporting the discharge/admit diagnosis, the presence of at least one elevated blood pressure reading (>120/80) during this emergency department visit, lab results, radiology results, the need for further work-up and treatment in the hospital. 11/18 06:31 Response to treatment: the patient's symptoms have mildly improved after treatment. [facility] 11/17 20:50 Order name: Basic Metabolic Panel; Complete Time: 22:47 [facility] 11/17 20:50 Order name: CBC with Diff [facility] 11/17 20:50 Order name: LFT's; Complete Time: 22:47 [facility] 11/17 20:50 Order name: Magnesium; Complete Time: 22:47 [facility] 11/17 20:50 Order name: NT PRO-BNP; Complete Time: 22:47 [facility] 11/17 20:50 Order name: PT-INR; Complete Time: 22:10 [facility] 11/17 20:50 Order name: Troponin (emerg Dept Use Only); Complete Time: 22:47 [facility] 11/17 20:50 Order name: XRAY Chest (1 view) [facility] 11/17 22:00 Order name: Urine Dipstick--Ancillary (enter results) tt3 11/17 22:07 Order name: Manual Differential [facility] 11/18 00:38 Order name: COVID-19 bb 11/18 00:48 Order name: CORONAVIRUS [facility] 11/18 02:46 Order name: SARS-COV-2 RT PCR [facility] 11/18 03:30 Order name: Troponin I [facility] 11/17 20:50 Order name: EKG; Complete Time: 20:50 [facility] 11/17 20:50 Order name: Cardiac monitoring; Complete Time: 23:52 [facility] 11/17 20:50 Order name: EKG - Nurse/Tech; Complete Time: 23:51 [facility] 11/17 20:50 Order name: IV Saline Lock; Complete Time: 22:02 [facility] 11/17 20:50 Order name: Labs collected and sent; Complete Time: 22:02 [facility] 11/17 20:50 Order name: O2 Per Protocol; Complete Time: 22:02 [facility] 11/17 20:50 Order name: O2 Sat Monitoring; Complete Time: 22:02 [facility] Administered Medications: 00:42 Drug: Lasix 40 mg Route: IVP; Site: right antecubital; vc 01:22 Follow up: Response: No adverse reaction vc 00:42 Drug: Aspirin Chewable Tablet 162 mg Route: PO; vc 01:22 Follow up: Response: No adverse reaction vc Disposition: 06:31 Co-signature as Attending Physician, Miguel Nicholas MD. [facility] Disposition: 11/18/19 23:50 Hospitalization ordered by Scout Cadena for Inpatient Admission. Preliminary diagnosis is CHF Exacerbation. - Bed requested for Telemetry/MedSurg (Inpatient). - Status is Inpatient Admission. vc - Condition is Stable. - Problem is an acute exacerbation. - Symptoms have improved. Signatures: Dispatcher [employer] EDMS Mk Alonso, INPATIENT NURSING AIDE-C INPATIENT NURSING AIDE-Cla1 Jennifer Augustin RN RN tl1 Dipti De La Rosa RN RN vc Miguel Nicholas MD MD 7 Corrections: (The following items were deleted from the chart) 03:45 11/17 23:50 Hospitalization Ordered by Scout Cadena MD for Inpatient Admission. tl1 Preliminary diagnosis is CHF Exacerbation. Bed requested for Telemetry/MedSurg (Inpatient). Status is Inpatient Admission. Condition is Stable. Problem is an acute exacerbation. Symptoms have improved. mh7 11/18 04:36 03:45 11/18/2019 23:50 Hospitalization Ordered by Scout Cadena MD for Inpatient vc Admission. Preliminary diagnosis is CHF Exacerbation. Bed requested for Telemetry/MedSurg (Inpatient). Status is Inpatient Admission. Condition is Stable. Problem is an acute exacerbation. Symptoms have improved. tl1
--- NOTE | 2019-11-19 00:28 | P.HP ---
Certification for Inpatient Patient admitted to: Inpatient With expected LOS: >2 Midnights Patient will require the following post-hospital care: None Practitioner: I am a practitioner with admitting privileges, knowledge of patient current condition, hospital course, and medical plan of care. Services: Services provided to patient in accordance with Admission requirements found in Title 42 Section 412.3 of the Code of Federal Regulations <Mk Alonso - Last Filed: 11/19/19 00:22> Patient History Date of Service: 11/19/19 [facility] Provider: [facility] Reason for admission: This CHF exacerbation History of Present Illness: 64-year-old female with medical history of chronic diastolic congestive heart failure, diabetes mellitus type 2, hypertension, hyperlipidemia presents emergency department for worsening shortness of breath and swelling of the lower extremities. Patient reports that she is compliant with her medications and fluid restriction. During her evaluation in the emergency department patient was found to have a significantly elevated BNP levels and a chest x-ray that does suggest volume overload. Patient also with significant pitting edema bilaterally in the lower extremities. ED provider wishes to admit patient for further evaluation and management. When I saw the patient in the emergency department she was awake, alert, oriented x4. Patient in no respiratory distress at this time. Patient is noted to have significant pitting edema bilateral lower extremities. - Past Medical/Surgical History Diabetic: Yes -: COPD -: Hypertension -: CAD, CABG x4 vessels (August 2017) -: Diabetes mellitus type 2, insulin-dependent -: Chronic diastolic CHF -: Uterine cancer status post hysterectomy -: Chronic renal disease, stage IV -: 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 Her son lives with her. She has 3 children. - Family History Brother -: Heart disease, Hypertension, Diabetes Notes: Father -: Heart disease, Cancer Notes: - Prostate surgery - Hemorrhage Mother -: GI disease Notes: Sister -: Heart disease Notes: - Respiratory failure - Social History Smoking Status: Former smoker Alcohol use: No CD- Drugs: No Caffeine use: Yes Place of Residence: Home <Mk Alonso - Last Filed: 11/19/19 00:22> Date of Service: 11/19/19 <Francesco Cadena - Last Filed: 11/19/19 11:59> Allergies morphine Allergy (Severe, Verified 11/19/19 05:42) Anaphylaxis vancomycin Allergy (Intermediate, Verified 11/19/19 05:42) Nausea/Vomiting basil Allergy (Verified 11/19/19 05:42) Nausea/Vomiting tramadol Allergy (Verified 11/19/19 05:42) Nausea/Vomiting trazodone Allergy (Verified 11/19/19 05:42) Nausea/Vomiting nitroglycerin Adverse Reaction (Mild, Verified 11/19/19 05:42) Nausea/Vomiting Home Medications: Aspirin Chewable [Aspirin Chewable*] 1 tab PO DAILY 11/19/19 Atorvastatin Calcium [Lipitor] 40 mg PO BEDTIME 11/19/19 Bupropion HCl [Wellbutrin] 1 tab PO DAILY 11/19/19 Clopidogrel Bisulfate [Plavix] 75 mg PO DAILY 11/19/19 Codeine/APAP [Tylenol #3*] 1 tab PO Q6HP PRN 11/19/19 Collagenase [Santyl Ointment*] 1 raquel TOP DAILY 11/19/19 Fluticasone [Flovent Hfa 110*] 2 puff PO BID 11/19/19 Furosemide [Lasix] 40 mg PO BIDL 11/19/19 Gabapentin 300 mg PO BID 11/19/19 Insulin Detemir [Levemir Flextouch] 10 units SQ BID 11/19/19 Sertraline [Zoloft*] 25 mg PO DAILY 11/19/19 carvediloL [Coreg] 12.5 mg PO DAILY 11/19/19 Review of Systems 10-point ROS is otherwise unremarkable Respiratory: Cough, Shortness of Breath Cardiovascular: Edema Musculoskeletal: Back Pain <Mk Alonso - Last Filed: 11/19/19 00:22> Physical Examination - Physical Exam General: Alert, In no apparent distress, Oriented x3 HEENT: Atraumatic, Normocephalic Neck: Supple Respiratory: Diminished (Bilaterally), Crackles/rales (Bilaterally) Cardiovascular: Edema (Pitting edema bilateral lower extremities) Capillary refill: <2 Seconds Gastrointestinal: Normal bowel sounds, No tenderness, No rebound, No guarding Musculoskeletal: No clubbing, No swelling, No contractures Integumentary: No significant lesion, No tenderness/swelling, No erythema Neurological: Normal speech, Normal strength at 5/5 x4 extr, Normal tone - Studies Laboratory Data (last 24 hrs) 11/18/19 21:40: PT 15.5 H, INR 1.32 11/18/19 21:40: WBC 13.9 H, Hgb 9.6 L, Hct 30.9 L, Plt Count 178 11/18/19 21:40: Sodium 140, Potassium 4.7, BUN 44 H, Creatinine 1.89 H, Glucose 99, Magnesium 1.9, Total Bilirubin 0.6, AST 28, ALT 19, Alkaline Phosphatase 164 H <Mk Alonso - Last Filed: 11/19/19 00:22> - Studies Laboratory Data (last 24 hrs) 11/18/19 21:40: PT 15.5 H, INR 1.32 11/18/19 21:40: WBC 13.9 H, Hgb 9.6 L, Hct 30.9 L, Plt Count 178 11/18/19 21:40: Sodium 140, Potassium 4.7, BUN 44 H, Creatinine 1.89 H, Glucose 99, Magnesium 1.9, Total Bilirubin 0.6, AST 28, ALT 19, Alkaline Phosphatase 164 H <Francesco Cadena - Last Filed: 11/19/19 11:59> Assessment and Plan - Plan Assessment Acute on chronic diastolic congestive heart failure with volume overload Diabetes mellitus type 2-insulin dependent CKD stage 4 COPD Hypertension Hyperlipidemia Plan Acute on chronic diastolic congestive heart failure with volume overload: Continue with IV diuresis, 1.5 L per day fluid restriction, daily weights. Cardiology consult in place. Will trend troponins. Last echocardiogram less than 1 year ago shows ejection fraction of 66%. DVT prophylaxis with heparin 5000 units subcutaneous twice daily. Appreciate further input from cardiology. Patient with significant bilateral lower extremity pitting edema and edema of the upper extremities. Will likely require 2-3 days of IV diuresis. Diabetes mellitus type 2-insulin dependent: A.c. HS Accu-Cheks scale insulin therapy. CKD stage 4: Avoid NSAIDs, contrast. Will continue diuresis. Will consult nephrology as needed. COPD: Medications as needed for COPD. Hypertension: Obtain and continue patient's home medications, p.r.n. medications in place at this time. Hyperlipidemia: Obtain and continue patient's home medications. Discharge Plan: Home Plan to discharge in: 48 Hours - Advance Directives Does patient have a Living Will: Yes Does patient have a Durable POA for Healthcare: Yes - Code Status/Comfort Care Code Status Assessed: Yes (Patient is full code) Critical Care: No Time Spent Managing Pts Care (In Minutes): 55 <Mk Alonso - Last Filed: 11/19/19 00:22> Physician Review: Patient Assessed, Agree with Above Assessment and Plan Physician Review Additional Text: Patient was seen and examined and findings were discussed agree with the assessment and plan as documented by the RAQUEL Continue aggressive diuresis Cardiology consult awaited Monitor closely under telemetry Electrolytes monitored and replaced accordingly <Francesco Cadena - Last Filed: 11/19/19 11:59>
[2019-11-19] MEDS ORDERED: FUROSEMIDE 40 MG/4 ML VIAL ONE (00:46)
[2019-11-19] MEDS ORDERED: ASPIRIN 81 MG CHEWABLE TABLET ONE (00:46)
[2019-11-19] MEDS ORDERED: ONDANSETRON 4 MG/2 ML VIAL IV PRN (00:48)
[2019-11-19] MEDS ORDERED: ACETAMINOPHEN 500 MG TAB PO PRN (00:48)
[2019-11-19] MEDS: FUROSEMIDE 40 MG/4 ML VIAL IV SCH ×3 (00:50→16:49)
[2019-11-19] MEDS: HYDRALAZINE HCL 20 MG/ML VIAL IV PRN ×2 (06:17→13:56)
[2019-11-19] MEDS: INSULIN -REGULAR HUMAN 50 UNIT/0.5 ML ML SQ SCH ×4 (07:30→21:00)
[2019-11-19] MEDS: HEPARIN 5000 UNIT/ML 1 ML VIAL SQ SCH ×2 (09:31→22:22)
[2019-11-19] MEDS ORDERED: CODEINE 30MG/APAP 300MG TAB PO PRN (09:50)
--- NOTE | 2019-11-19 10:20 | RAD REPORT ---
EXAM DESCRIPTION: Chest Single View CLINICAL HISTORY: SOB COMPARISON: 11/01/2018 FINDINGS: Single frontal radiograph view of the chest. Cardiomediastinal silhouette: Cardiomegaly. Prior median sternotomy. Lungs: Pulmonary vascular congestion with bilateral interstitial opacities. Small bilateral pleural e ffusions. No pneumothorax. Bones: Degenerative change of the spine and shoulders. Upper abdomen: No abnormality identified. IMPRESSION: 1. Cardiomegaly with pulmonary edema pattern bilateral pleural effusions. Electronically signed by: Davis Mosquera 11/18/2019 10:42 PM CDT Due to temporary technical issues with the PACS/Fluency reporting system, reports are being signed by the in house radiologist without review as a courtesy to ensure prompt reporting. The interpreting r adiologist is fully responsible for the content of the report.
[2019-11-19] MEDS ORDERED: FUROSEMIDE 40 MG TABLET PO SCH (17:00)
[2019-11-19] MEDS: CODEINE 30MG/APAP 300MG TAB PO PRN ×2 (18:11→23:56)
--- NOTE | 2019-11-19 19:04 | CON ---
Date of Consultation: 11/19/2019 Reason For Consultation: Congestive heart failure. History Of Present Illness: This is a 64-year-old female with history of coronary artery disease sta tus post 4-vessel CABG back in 2018, history of hypertension, diabetes, dyslipidemia, presented to [facility] ER with worsening shortness of breath, significant lower extremity edema. No orthopnea, facial swe lling. No chest pain. No nausea, vomiting, or diarrhea. She was evaluated in the emergency room, f ound to have significant congestive heart failure with pulmonary edema. Started on IV Lasix and the patient feels already somewhat better. Denies having any chest pain during this episode. Past Medical History: As outlined above in the HPI. Medications: Refer to reconciliation sheet for detailed list. Allergies: MORPHINE, VANCOMYCIN, TRAMADOL, TRAZODONE, NITROGLYCERIN. Social History: Does not smoke or drink. Does not use any drugs. Past Surgical History: Cardiac bypass surgery in 2018. Review of Systems: All systems reviewed. They were negative except what mentioned in HPI. Physical Examination: Vital Signs: Temperature is 97.5, pulse 63, breathing 18, blood pressure 145/68, saturating 99% with 3 L. General: Pleasant middle-aged female, in no apparent distress. Head and Neck: Pupils are equal, reactive to light. Intact eye movements. Positive JVD. No cervic al lymphadenopathy. Neck is supple. Thyroid is not enlarged. Lungs: Crackles in both bases. No accessory muscle use or muscle retraction. Heart: Regular rate and rhythm. No extra sounds. Abdomen: Soft, nontender. Bowel sounds positive. No organomegaly. No masses or hernia. No rigidi ty or rebound. Extremities: 3+ pitting edema bilaterally. No clubbing, cyanosis. Intact pulses. Skin: No rash. Neurologic: Alert, awake, oriented x3. No acute focal deficits appreciated. Investigations: Troponin 0.06 and 0.05. Sodium 140, BUN 44, creatinine is 1.89, and BNP is 50,623. Hemoglobin 9.6 and the chest x-ray showed a pulmonary edema. Assessment And Plan: 1.Rrowr-fy-phxidre diastolic heart failure. There was a normal ejection fraction in January 2019 w ith creatinine being close to 2. I recommend increasing Lasix to 80 mg IV q.8 hours. Aggressive diu resis over the weekend and recommend a nuclear stress test on Friday. 2.Mild elevation of troponin and is trending down. This is likely due to the heart failure. Marva lantigua, in the presence of the coronary artery disease history and bypass surgery 3 years ago, I recommend a nuclear stress test on Friday and further plan according to the results. 3.Chronic renal failure, probably due to cardiorenal syndrome. This could improve with aggressive d iuresis. Thank you for the courtesy of this consultation. /CELESTINE Voice ID: [id number] Report ID: [id number]
[2019-11-19] MEDS ORDERED: HOME MED 1 EA UNK (Insulin Detemir [Levemir Flextouch] 10 UNITS) SQ SCH (21:00)
[2019-11-19] MEDS: FLUTICASONE IH SCH (21:00)
[2019-11-19] MEDS ORDERED: FLUTICASONE IH SCH (21:00)
[2019-11-19] MEDS ORDERED: FLUTICASONE 110 MCG/PUFF 12 GM INH IH SCH (21:00)
[2019-11-19] MEDS: ATORVASTATIN 40 MG TAB PO SCH (22:18)
[2019-11-19] MEDS: GABAPENTIN 300 MG CAP PO SCH (22:19)
[2019-11-19] MEDS: INSULIN GLARGINE 100 UNITS/ML SQ SCH (22:19)
[2019-11-20] MEDS: CODEINE 30MG/APAP 300MG TAB PO PRN ×4 (05:10→23:54)
[2019-11-20 06:12] LABS: Absolute Lymphocytes (CBC) 0.4 K/uL (0.7-4.9); Basophils % 0.1 % (0-1.3); Hematocrit 30.7 % (36.0-45.0); Lymphocytes % 3.3 % (15.3-44.8); RBC Red Blood Cell Count 3.43 M/uL (3.86-4.86)
[2019-11-20 06:26] LABS: Magnesium 1.9 mg/dL (1.8-2.4); Potassium 4.8 mmol/L (3.5-5.1)
[2019-11-20] MEDS: INSULIN -REGULAR HUMAN 50 UNIT/0.5 ML ML SQ SCH ×4 (07:30→21:00)
[2019-11-20] MEDS: ASPIRIN 81 MG CHEWABLE TABLET PO SCH (08:58)
[2019-11-20] MEDS: CLOPIDOGREL 75 MG TABLET PO SCH (08:58)
[2019-11-20] MEDS: SERTRALINE HCL 50 MG TAB PO SCH (08:58)
[2019-11-20] MEDS: FUROSEMIDE 40 MG/4 ML VIAL IV SCH ×3 (08:59→19:19)
[2019-11-20] MEDS: GABAPENTIN 300 MG CAP PO SCH ×2 (08:59→22:09)
[2019-11-20] MEDS: carvediloL 12.5 MG TAB PO SCH (08:59)
[2019-11-20] MEDS: FLUTICASONE IH SCH ×2 (09:00→21:00)
[2019-11-20] MEDS ORDERED: BUPROPION HCL PO SCH (09:00)
[2019-11-20] MEDS ORDERED: HOME MED [COLLAGENASE 30 GM OINTMENT] TOP SCH (09:00)
[2019-11-20] MEDS ORDERED: COLLAGENASE 30 GM OINTMENT TOP SCH (09:00)
[2019-11-20] MEDS: INSULIN GLARGINE 100 UNITS/ML SQ SCH ×2 (09:00→22:09)
[2019-11-20] MEDS: HEPARIN 5000 UNIT/ML 1 ML VIAL SQ SCH ×2 (09:02→22:09)
--- NOTE | 2019-11-20 09:28 | P.PN ---
Subjective Date of Service: 11/20/19 [facility] Provider: [facility] Chief Complaint: This CHF exacerbation Subjective: No new changes, Other (Feeling better Denies any chest pain) Review of Systems 10-point ROS is otherwise unremarkable Physical Examination - Vital Signs Temperature: 97.5 F Blood Pressure: 192/82 Pulse: 64 Respirations: 18 Pulse Ox (%): 98 - Physical Exam General: Alert, In no apparent distress HEENT: Atraumatic, Normocephalic Neck: Supple Respiratory: Diminished, Crackles/rales Cardiovascular: Regular rate/rhythm, Normal S1 S2 Capillary refill: <2 Seconds Gastrointestinal: Soft and benign, W/out hepatosplenomegaly Musculoskeletal: No clubbing, Swelling Integumentary: No rashes, Erythema Neurological: Normal speech, Normal strength at 5/5 x4 extr Lymphatics: No axilla or inguinal lymphadenopathy Assessment & Plan Physician Review: Patient Assessed, Agree with Above Assessment and Plan Physician Review Additional Text: Acute on chronic diastolic congestive heart failure with volume overload Diabetes mellitus type 2-insulin dependent CKD stage 4 COPD Hypertension Hyperlipidemia Plan Acute on chronic diastolic congestive heart failure with volume overload: Continue with IV diuresis Increase the dose of Lasix to 80 Appreciate help from cardiology plan to continue diuresis and possible stress test on Friday 1.5 L per day fluid restriction, daily weights. Last echocardiogram less than 1 year ago shows ejection fraction of 66%. DVT prophylaxis with heparin 5000 units subcutaneous twice daily. Diabetes mellitus type 2-insulin dependent: A.c. HS Accu-Cheks scale insulin therapy. CKD stage 4: Avoid NSAIDs, contrast. Will continue diuresis. Will consult nephrology as needed. Monitor renal parameters COPD: Medications as needed for COPD. Hypertension: continue patient's home medications, Will titrate as needed Hyperlipidemia: continue patient's home medications. Disposition : Continue aggressive diuresis Possible stress test on Friday Will get a PTOT evaluation Time Spent Managing Pts Care (In Minutes): 43
--- NOTE | 2019-11-20 10:37 | RAD REPORT ---
EXAM DESCRIPTION: Butch Single View11/20/2019 9:59 am CLINICAL HISTORY: Cough COMPARISON: November 18, 2019 FINDINGS: Small to moderate right small left pleural effusions Bilateral pulmonary opacities have partially resolved probably pulmonary edema Heart is mildly to moderately enlarged. Postsurgical changes involve the chest.
[2019-11-20] MEDS: BUPROPION HCL XL 150 MG TAB PO SCH (10:44)
[2019-11-20] MEDS: COLLAGENASE 30 GM OINTMENT TOP SCH (14:45)
[2019-11-20] MEDS: ATORVASTATIN 40 MG TAB PO SCH (22:09)
[2019-11-20] MEDS: HYDRALAZINE HCL 20 MG/ML VIAL IV PRN (22:26)
[2019-11-21 06:26] LABS: Absolute Lymphocytes (CBC) 1.5 K/uL (0.7-4.9); Basophils % 0.4 % (0-1.3); Hematocrit 25.2 % (36.0-45.0); Lymphocytes % 16.1 % (15.3-44.8); MPV 7.5 fL (7.6-11.3); RBC Red Blood Cell Count 2.86 M/uL (3.86-4.86)
[2019-11-21 06:33] LABS: Magnesium 1.8 mg/dL (1.8-2.4); Potassium 4.3 mmol/L (3.5-5.1)
[2019-11-21] MEDS: INSULIN -REGULAR HUMAN 50 UNIT/0.5 ML ML SQ SCH ×4 (07:30→21:48)
[2019-11-21] MEDS ORDERED: MAGNESIUM SULFATE 1 gm IVPB 1 GM/100 ML BAG IV ONE (08:00)
[2019-11-21] MEDS: COLLAGENASE 30 GM OINTMENT TOP SCH (09:00)
[2019-11-21] MEDS: INSULIN GLARGINE 100 UNITS/ML SQ SCH ×2 (09:00→21:49)
[2019-11-21] MEDS: FLUTICASONE IH SCH ×2 (09:00→19:41)
[2019-11-21] MEDS: carvediloL 12.5 MG TAB PO SCH (09:00)
[2019-11-21] MEDS: PIPER/TAZO/NS 3.375gm 3.375 GM/100 ML BAG IVPB SCH ×2 (09:15→16:38)
[2019-11-21] MEDS: FUROSEMIDE 40 MG/4 ML VIAL IV SCH (09:15)
[2019-11-21] MEDS: HEPARIN 5000 UNIT/ML 1 ML VIAL SQ SCH ×2 (09:15→21:50)
[2019-11-21] MEDS: BUPROPION HCL XL 150 MG TAB PO SCH (09:16)
[2019-11-21] MEDS: SERTRALINE HCL 50 MG TAB PO SCH (09:16)
[2019-11-21] MEDS: CLOPIDOGREL 75 MG TABLET PO SCH (09:16)
[2019-11-21] MEDS: ASPIRIN 81 MG CHEWABLE TABLET PO SCH (09:16)
[2019-11-21] MEDS: GABAPENTIN 300 MG CAP PO SCH ×2 (09:16→21:48)
--- NOTE | 2019-11-21 09:58 | P.PN ---
Subjective Date of Service: 11/21/19 [facility] Provider: [facility] Chief Complaint: This CHF exacerbation Subjective: No new changes, Other (Still having bilateral lower extremity swelling Denies any chest pain or shortness of breath) Review of Systems 10-point ROS is otherwise unremarkable Physical Examination - Vital Signs Temperature: 97.8 F Blood Pressure: 178/75 Pulse: 52 Respirations: 20 Pulse Ox (%): 99 - Physical Exam General: Alert, Oriented x3, Obese HEENT: Atraumatic, Normocephalic Neck: Supple, 2+ carotid pulse no bruit Respiratory: Normal air movement, Crackles/rales Cardiovascular: Regular rate/rhythm, Normal S1 S2, Edema Capillary refill: <2 Seconds Gastrointestinal: Soft and benign, W/out hepatosplenomegaly Musculoskeletal: No clubbing, Swelling Integumentary: Other (Bilateral Lower extremities wound ) Neurological: Normal speech, Normal strength at 5/5 x4 extr Lymphatics: No axilla or inguinal lymphadenopathy Assessment & Plan - Problems (Diagnosis) (1) Acute exacerbation of CHF (congestive heart failure) Onset Date: 02/04/17 Current Visit: No Status: Acute Qualifiers: Qualified Code(s): I50.23 - Acute on chronic systolic (congestive) heart failure (2) Anasarca Onset Date: 10/03/17 Current Visit: No Status: Acute (3) Anemia Current Visit: No Status: Acute Physician Review: Patient Assessed, Agree with Above Assessment and Plan Physician Review Additional Text: Acute on chronic diastolic congestive heart failure with volume overload Diabetes mellitus type 2-insulin dependent CKD stage 4 COPD Hypertension Hyperlipidemia Plan Acute on chronic diastolic congestive heart failure with volume overload: Continue with IV diuresis Increase the dose of Lasix to 80 tid Add on Zaroxylin Appreciate help from cardiology plan to continue diuresis and possible stress test on Friday 1.5 L per day fluid restriction, daily weights. Last echocardiogram less than 1 year ago shows ejection fraction of 66%. Diabetes mellitus type 2-insulin dependent: A.c. HS Accu-Cheks scale insulin therapy. ARTURO on CKD stage 4: Avoid NSAIDs, contrast. Will continue diuresis. Will consult nephrology Monitor renal parameters COPD: Medications as needed for COPD. Hypertension: continue patient's home medications, Will titrate as needed Lower extremity wounds Wound culture positive for Providencia and enterococcus Started on Zosyn Will get an ID consult Hyperlipidemia: continue patient's home medications. Disposition : Continue aggressive diuresis Possible stress test on Friday Will get a PTOT evaluation Time Spent Managing Pts Care (In Minutes): 42
[2019-11-21] MEDS ORDERED: FUROSEMIDE 40 MG/4 ML VIAL IV SCH (11:00)
--- NOTE | 2019-11-21 12:17 | P.CNS ---
Date of Consult: 11/21/19 Reason for Consult: CKD , fluid overload [facility] Provider: [facility] Chief Complaint: This CHF exacerbation History of Present Illness: a 64-year-old AA woman with past medical history of hypertension, diabetes m ellitus, COPD, Ex smoker, CKD stage 4 baseline Cr ~1.7-2.0 , CAD S/P CABG, CHF lasix and metolazone pt presented with SOB and worsening LE edema, pt had multiple admission fr similar symptoms, as per Pt she required HD in the past in ER CXR with pulmonary edema , significant facial edema and abdominal distension she denied , nausea , vomiting , diarrhea or constipation Physical exam general: AAOX3, NAD ,obese, facial edema Neck; Supple, No elevated JVD hear: RRR, normal S1,2 no murmur or rub Chest: decreased aie entry B/L Abdomen: Distended, tense , Nt Extremities +3 edema , with oozing A/P CKD IV with nephrotic range proteinuria Cr stable at baseline previous serology w/u -ve will switch lasix to IV drip and increase metolazone HTN elevated , cont current meds cont diuretics anasarca due to CHF +/- CKD and hypoalbuminemia will switch lasix to IV drip and increase metolazone fluid restriction DM as per primary anemia o chronic disease will order W/U eluckocytosis cont abx f/u cultures Allergies morphine Allergy (Severe, Verified 11/19/19 05:42) Anaphylaxis vancomycin Allergy (Intermediate, Verified 11/19/19 05:42) Nausea/Vomiting basil Allergy (Verified 11/19/19 05:42) Nausea/Vomiting tramadol Allergy (Verified 11/19/19 05:42) Nausea/Vomiting trazodone Allergy (Verified 11/19/19 05:42) Nausea/Vomiting nitroglycerin Adverse Reaction (Mild, Verified 11/19/19 05:42) Nausea/Vomiting Home Medications: Aspirin Chewable [Aspirin Chewable*] 1 tab PO DAILY 11/19/19 Atorvastatin Calcium [Lipitor] 40 mg PO BEDTIME 11/19/19 Bupropion HCl [Wellbutrin] 1 tab PO DAILY 11/19/19 Clopidogrel Bisulfate [Plavix] 75 mg PO DAILY 11/19/19 Codeine/APAP [Tylenol #3*] 1 tab PO Q6HP PRN 11/19/19 Collagenase [Santyl Ointment*] 1 raquel TOP DAILY 11/19/19 Fluticasone [Flovent Hfa 110*] 2 puff PO BID 11/19/19 Furosemide [Lasix] 40 mg PO BIDL 11/19/19 Gabapentin 300 mg PO BID 11/19/19 Insulin Detemir [Levemir Flextouch] 10 units SQ BID 11/19/19 Sertraline [Zoloft*] 25 mg PO DAILY 11/19/19 carvediloL [Coreg] 12.5 mg PO DAILY 11/19/19 - Past Medical/Surgical History Diabetic: Yes -: COPD -: Hypertension -: CAD, CABG x4 vessels (August 2017) -: Diabetes mellitus type 2, insulin-dependent -: Chronic diastolic CHF -: Uterine cancer status post hysterectomy -: Chronic renal disease, stage IV -: 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 Her son lives with her. She has 3 children. - Family History Brother Medical History: Heart disease, Hypertension, Diabetes Notes: Father Medical History: Heart disease, Cancer Notes: - Prostate surgery - Hemorrhage Mother Medical History: GI disease Notes: Sister Medical History: Heart disease Notes: - Respiratory failure - Social History Smoking Status: Current every day smoker Alcohol use: No CD- Drugs: No Caffeine use: Yes Place of Residence: Home Physical Examination Temp Pulse Resp BP Pulse Ox 97.8 F 52 20 178/75 H 99 11/21/19 10:12 11/21/19 10:12 11/21/19 10:12 11/21/19 10:12 11/21/19 10:12
[2019-11-21] MEDS: FUROSEMIDE 100 MG in NA CHLORIDE 0.9% 90 ML IV SCH (14:03)
[2019-11-21] MEDS: CODEINE 30MG/APAP 300MG TAB PO PRN (18:25)
[2019-11-21] MEDS: ATORVASTATIN 40 MG TAB PO SCH (21:47)
[2019-11-21] MEDS: METOLAZONE 2.5 MG TABLET PO SCH (21:47)
[2019-11-22] MEDS: PIPER/TAZO/NS 3.375gm 3.375 GM/100 ML BAG IVPB SCH ×3 (00:45→17:00)
[2019-11-22] MEDS: FUROSEMIDE 100 MG in NA CHLORIDE 0.9% 90 ML IV SCH ×3 (00:48→21:42)
[2019-11-22] MEDS: CODEINE 30MG/APAP 300MG TAB PO PRN ×3 (00:53→22:19)
[2019-11-22 05:44] LABS: Absolute Lymphocytes (CBC) 1.5 K/uL (0.7-4.9); Basophils % 0.6 % (0-1.3); Hematocrit 25.2 % (36.0-45.0); Lymphocytes % 23.5 % (15.3-44.8); MPV 7.6 fL (7.6-11.3); RBC Red Blood Cell Count 2.86 M/uL (3.86-4.86)
[2019-11-22 06:21] LABS: Ferritin 56.9 ng/mL (8-388); Folic Acid, (Folate) 5.5 ng/mL (3.1-17.5); Potassium 4.3 mmol/L (3.5-5.1)
[2019-11-22] MEDS: INSULIN -REGULAR HUMAN 50 UNIT/0.5 ML ML SQ SCH ×4 (07:30→21:45)
[2019-11-22] MEDS: SERTRALINE HCL 50 MG TAB PO SCH (08:52)
[2019-11-22] MEDS: METOLAZONE 2.5 MG TABLET PO SCH ×2 (08:53→21:43)
[2019-11-22] MEDS: CLOPIDOGREL 75 MG TABLET PO SCH (08:53)
[2019-11-22] MEDS: BUPROPION HCL XL 150 MG TAB PO SCH (08:53)
[2019-11-22] MEDS: ASPIRIN 81 MG CHEWABLE TABLET PO SCH (08:57)
[2019-11-22] MEDS: carvediloL 12.5 MG TAB PO SCH (08:57)
[2019-11-22] MEDS: COLLAGENASE 30 GM OINTMENT TOP SCH (08:57)
[2019-11-22] MEDS: GABAPENTIN 300 MG CAP PO SCH ×2 (08:57→21:43)
[2019-11-22] MEDS: FLUTICASONE IH SCH ×2 (08:58→21:00)
[2019-11-22] MEDS: HEPARIN 5000 UNIT/ML 1 ML VIAL SQ SCH ×2 (08:58→21:44)
[2019-11-22] MEDS ORDERED: METOLAZONE 2.5 MG TABLET PO SCH (09:00)
[2019-11-22] MEDS: HYDRALAZINE HCL 20 MG/ML VIAL IV PRN ×2 (12:15→18:16)
--- NOTE | 2019-11-22 16:18 | P.CNS ---
Date of Consult: 11/22/19 Subjective: Patient is a 64 year old female with pmh of chronic diastolic congestive heart failure who presents with shortness of breath and swelling to bilateral lower extremities. Patient found to have wounds on left foot which I have been consulted for. Patient examined at bedside. Reports wounds to left foot for a few weeks. Patient follows up at the wound healing center weekly. Past medical/surgical history: -: COPD -: Hypertension -: CAD, CABG x4 vessels (August 2017) -: Diabetes mellitus type 2, insulin-dependent -: Chronic diastolic CHF -: Uterine cancer status post hysterectomy -: Chronic renal disease, stage IV -: TB as a child - Negative 2017 -: Hyperlipidemia -: Iron deficiency anemia -: Morbid obesity -: Likely obstructive sleep apnea -: Rectal surgery -: Hysterectomy -: Cholecystectomy -: Gastric surgery -: Appendectomy -: CABG x4 vessel -: RLE Femoral popliteal bypass -: Left great toe amputation Family History: Brother -: Heart disease, Hypertension, Diabetes Notes: Father -: Heart disease, Cancer Notes: - Prostate surgery - Hemorrhage Mother -: GI disease Notes: Sister -: Heart disease Notes: - Respiratory failure Social history: Smoking Status: Former smoker Alcohol use: No CD- Drugs: No Caffeine use: Yes Place of Residence: Home Allergies morphine Allergy (Severe, Verified 11/19/19 05:42) Anaphylaxis vancomycin Allergy (Intermediate, Verified 11/19/19 05:42) Nausea/Vomiting basil Allergy (Verified 11/19/19 05:42) Nausea/Vomiting tramadol Allergy (Verified 11/19/19 05:42) Nausea/Vomiting trazodone Allergy (Verified 11/19/19 05:42) Nausea/Vomiting nitroglycerin Adverse Reaction (Mild, Verified 11/19/19 05:42) Nausea/Vomiting Active Medications Acetaminophen (Tylenol -Extra Strength) 500 mg PO Q4HP PRN PRN Reason: TEMP > 100' F Stop: 12/19/19 00:49 Last Admin: 11/19/19 06:17 Dose: 500 mg Documented by: Acetaminophen/Codeine Phosphate (Tylenol W/Codeine #3 Tab) 1 tab PO Q6HP PRN PRN Reason: Pain scale 5-7 (Moderate) Stop: 12/19/19 12:00 Last Admin: 11/22/19 13:41 Dose: 1 tab Documented by: Aspirin (Aspirin Chewable) 81 mg PO DAILY [facility] Stop: 12/20/19 09:01 Last Admin: 11/22/19 08:57 Dose: 81 mg Documented by: Atorvastatin Calcium (Lipitor) 40 mg PO BEDTIME [facility] Stop: 12/19/19 21:01 Last Admin: 11/21/19 21:47 Dose: 40 mg Documented by: Bupropion HCl (Wellbutrin Xl) 150 mg PO DAILY [facility] Stop: 12/20/19 09:01 Last Admin: 11/22/19 08:53 Dose: 150 mg Documented by: Carvedilol (Coreg) 12.5 mg PO DAILY [facility] Stop: 12/20/19 09:01 Last Admin: 11/22/19 08:57 Dose: Not Given Documented by: Clopidogrel Bisulfate (Plavix) 75 mg PO DAILY [facility] Stop: 12/20/19 09:01 Last Admin: 11/22/19 08:53 Dose: 75 mg Documented by: Collagenase (Santyl Ointment) 1 appl TOP DAILY [facility] Stop: 12/20/19 09:01 Last Admin: 11/22/19 08:57 Dose: 1 raquel Documented by: Gabapentin (Neurontin) 300 mg PO BID [facility] Stop: 12/19/19 21:01 Last Admin: 11/22/19 08:57 Dose: 300 mg Documented by: Heparin Sodium (Porcine) (Heparin 5,000 Units/Ml) 5,000 unit SQ Q12HR [facility] Stop: 12/19/19 09:01 Last Admin: 11/22/19 08:58 Dose: 5,000 unit Documented by: Home Med (Home Med) 1 ea IH BID [facility] Stop: 12/19/19 21:01 Last Admin: 11/22/19 08:58 Dose: Not Given Documented by: Home Med (Home Med) 1 ea IH BID [facility] Stop: 12/19/19 21:01 Hydralazine HCl (Apresoline) 10 mg IV Q6HP PRN PRN Reason: Titrate to SBP (MUST DEFINE) Stop: 12/19/19 00:49 Last Admin: 11/22/19 12:15 Dose: 10 mg Documented by: Piperacillin Sod/Tazobactam Sod (Zosyn 3.375 Gm/100 Ml Ns Ivpb) 3.375 gm in 100 mls @ 100 mls/hr IVPB Q8HR [facility]; Protocol Stop: 12/21/19 09:01 Last Admin: 11/22/19 08:58 Dose: 100 mls Documented by: Furosemide 100 mg/ Sodium (Chloride) 100 mls @ 10 mls/hr IV Q10H [facility] Stop: 12/22/19 10:01 Last Admin: 11/22/19 10:14 Dose: 100 mls Documented by: Insulin Human Regular (Novolin -R) 0 unit SQ ACHS [facility]; Protocol Stop: 12/19/19 07:31 Last Admin: 11/22/19 11:30 Dose: Not Given Documented by: L-Arginine/L-Glutamine/HMB (Patrice) 1 pkt PO BID [facility] Stop: 12/22/19 21:01 Metolazone (Zaroxolyn) 5 mg PO BID [facility] Stop: 12/21/19 21:01 Last Admin: 11/22/19 08:53 Dose: 5 mg Documented by: Ondansetron HCl (Zofran) 4 mg IV Q6HP PRN PRN Reason: NAUSEA / VOMITING Stop: 12/19/19 00:49 Sertraline HCl (Zoloft) 25 mg PO DAILY [facility] Stop: 12/20/19 09:01 Last Admin: 11/22/19 08:52 Dose: 25 mg Documented by: Sodium Chloride (Normal Saline Flush) 10 ml IV BID [facility] Stop: 12/19/19 09:01 Last Admin: 11/22/19 08:58 Dose: 10 ml Documented by: ROS: CV: Denies chest pain RESP: Reports shortness of breath : Denies dysuria GI: Denies nausea and diarrhea Extremities: Reports swelling/weeping and wounds to bilateral lower extremities for the past few weeks Objective: Temp Pulse Resp BP Pulse Ox 96.2 F L 58 16 166/74 H 100 11/22/19 12:00 11/22/19 13:37 11/22/19 14:41 11/22/19 13:37 11/22/19 14:41 Labs: Na 137, K 4.3, BUN 51, Creat 1.87, albumin 2.5, WBC 6.2, Hgb 7.9, Hct 25.2 ROS: General: Awake alert, oriented CV: S1,S2 RESP: Diminished breath sounds Extremities: edema and weeping to BLLE Skin: Left lateral foot with superior and inferior DFU, wound beds with necrotic tissue, slough and large amount of drainage Assessment and plan: Leukocytosis resolved Left foot superior and inferior diabetic foot ulcers (DFU), continue santyl and alginate daily Inferior DFU probing to bone, will order foot xray Zosyn day 2, Will add Zyvox Patient will need total of 6 weeks of antibiotics Would benefit from LTAC facility for IV antibiotics and wound management Diabetes mellitus, monitor glycemic control Protein calorie malnourished Will continue to monitor Thank you for consult Patient discussed with
--- NOTE | 2019-11-22 16:24 | P.PN ---
Subjective Date of Service: 11/22/19 [facility] Provider: [facility] Chief Complaint: This CHF exacerbation Subjective: No new changes overall feels slightly improved, but reports some low Glc this morning elevated BP, but asymptomatic. Not having any vision changes, headache, new numbness/tingling, chest pain. Physical Examination - Vital Signs Temperature: 96.2 F Blood Pressure: 166/74 Pulse: 58 Respirations: 16 Pulse Ox (%): 100 - Physical Exam General: Alert, Oriented x3 HEENT: EOMI, Sclerae nonicteric Neck: Supple Respiratory: Diminished, Crackles/rales Cardiovascular: Edema (b/l to abdomen) Gastrointestinal: No tenderness Musculoskeletal: Other (b/l lower extremities wrapped in BLAYNE bandages) Neurological: Normal speech, Normal affect Assessment & Plan Physician Review: Patient Assessed, Agree with Above Assessment and Plan Physician Review Additional Text: Acute on chronic diastolic congestive heart failure with volume overload Diabetes mellitus type 2-insulin dependent CKD stage 4 COPD Hypertension Hyperlipidemia Plan Acute on chronic diastolic congestive heart failure with volume overload: Continue with IV diuresis cardiology and nephrology consulted - appreciate assistance on lasix drip + metolazone plan for stress test tomorrow 1.5 L per day fluid restriction, daily weights. Last echocardiogram less than 1 year ago shows ejection fraction of 66%. Diabetes mellitus type 2-insulin dependent: SSI, qACHS accu-cheks ARTURO on CKD stage 4: Avoid nephrotoxic agents (NSAIDs, contrast) Will continue diuresis. nephrology consulted Monitor renal parameters COPD: Medications as needed for COPD. Hypertension: continue patient's home medications, titrate as needed Lower extremity wounds Wound culture positive for Providencia and enterococcus Started on Zosyn, ID consulted, added Zyvox, appreciate assistance Hyperlipidemia: continue patient's home medications. Disposition : Continue aggressive diuresis stress test tomorrow PTOT evaluation may benefit from SNF for prolonged IV ABx course
--- NOTE | 2019-11-22 20:55 | RAD REPORT ---
EXAM DESCRIPTION: RAD - Foot Left 2 View - 11/22/2019 8:50 pm CLINICAL HISTORY: Left Foot pain FINDINGS: No fracture or dislocation is seen. . Lateral soft tissue ulceration Lucency is present within the fifth metatarsal head and base of fifth proximal phalanx probably osteo myelitis
[2019-11-22] MEDS: ATORVASTATIN 40 MG TAB PO SCH (21:43)
[2019-11-22] MEDS: JUVEN PACKET PO SCH (21:45)
[2019-11-22] MEDS: LINEZOLID 600 MG IVPB 600 MG/300 ML BAG IV SCH (22:04)
[2019-11-23] MEDS: PIPER/TAZO/NS 3.375gm 3.375 GM/100 ML BAG IVPB SCH ×3 (00:59→17:03)
[2019-11-23] MEDS: HYDRALAZINE HCL 20 MG/ML VIAL IV PRN ×2 (02:03→12:18)
--- NOTE | 2019-11-23 02:55 | PN ---
Date of Progress Note: 11/22/2019 Chief Complaint: Chronic kidney disease, congestive heart failure, cardiorenal syndrome. Subjective: The patient has multiple medical problems including history of diabetes mellitus, diabet ic kidney disease, hypertension, congestive heart failure with systolic dysfunction. The patient has been treated with Lasix and metolazone. She presented to the hospital because of worsening of legs edema, shortness of breath, and difficulty with ambulation. Review of Systems: Denies fever, chills. Physical Examination: Lungs: Diminished breath sounds at bases. Heart: S1, S2. Abdomen: Soft, benign. Extremities: Edema present in both legs. Impression And Plan: 1.Chronic kidney disease, stage 4 with nephrotic range proteinuria. Creatinine level stable at base line ranging from 1.7 to 2.0. The patient will continue Lasix and metolazone was increased. Lasix d rip was started. 2.Hypertension. Continue blood pressure medication. Continue diuretics, low-sodium diet. 3.Anasarca due to congestive heart failure and hypoalbuminemia secondary to chronic kidney disease w ith proteinuria. 4.Continue diuretics. Adjust dose according to fluid balance and urine output. 5.Diabetes mellitus. Continue insulin. EB/MODL Voice ID: [id number] Report ID: [id number]
[2019-11-23 05:50] LABS: Hematocrit 27.2 % (36.0-45.0); MPV 7.3 fL (7.6-11.3); RBC Red Blood Cell Count 3.12 M/uL (3.86-4.86)
[2019-11-23] MEDS: FUROSEMIDE 100 MG in NA CHLORIDE 0.9% 90 ML IV SCH ×4 (05:55→20:00)
[2019-11-23 06:09] LABS: Potassium 4.2 mmol/L (3.5-5.1)
[2019-11-23] MEDS: CODEINE 30MG/APAP 300MG TAB PO PRN ×3 (06:20→20:46)
[2019-11-23] MEDS: INSULIN -REGULAR HUMAN 50 UNIT/0.5 ML ML SQ SCH ×3 (07:30→20:48)
[2019-11-23] MEDS: CLOPIDOGREL 75 MG TABLET PO SCH (08:44)
[2019-11-23] MEDS: ASPIRIN 81 MG CHEWABLE TABLET PO SCH (08:44)
[2019-11-23] MEDS: GABAPENTIN 300 MG CAP PO SCH ×2 (08:44→20:46)
[2019-11-23] MEDS: METOLAZONE 2.5 MG TABLET PO SCH ×2 (08:45→20:49)
[2019-11-23] MEDS: HEPARIN 5000 UNIT/ML 1 ML VIAL SQ SCH ×2 (08:45→20:46)
[2019-11-23] MEDS: BUPROPION HCL XL 150 MG TAB PO SCH (08:45)
[2019-11-23] MEDS: SERTRALINE HCL 50 MG TAB PO SCH (08:45)
[2019-11-23] MEDS: COLLAGENASE 30 GM OINTMENT TOP SCH (08:46)
[2019-11-23] MEDS: FLUTICASONE IH SCH ×2 (08:53→20:47)
--- NOTE | 2019-11-23 08:53 | P.PN ---
Date of Service: 11/23/19 Subjective: Patient is a 64 year old female with pmh of chronic diastolic congestive heart failure who presents with shortness of breath and swelling to bilateral lower extremities. Patient found to have wounds on left foot which I have been consulted for. Reports wounds to left foot for a few weeks. Patient follows up at the wound healing center weekly. Patient sitting upright on the side of the bed, no acute distress. Agreeable to transfer to LTAC facility. Objective: Temp Pulse Resp BP Pulse Ox 97.6 F 54 18 173/80 H 100 11/23/19 04:00 11/23/19 04:00 11/23/19 04:00 11/23/19 04:00 11/23/19 04:00 Labs: Na 137, K 4.2, BUN 51, Creat 1.96, albumin 2.5, WBC 5.1, Hgb 8.7, Hct 27.2 Left foot xray 11/21: EXAM DESCRIPTION: RAD - Foot Left 2 View - 11/22/2019 8:50 pm CLINICAL HISTORY: Left Foot pain FINDINGS: No fracture or dislocation is seen. . Lateral soft tissue ulceration Lucency is present within the fifth metatarsal head and base of fifth proximal phalanx probably osteomyelitis ROS: General: Awake alert, oriented CV: S1,S2 RESP: Diminished breath sounds Extremities: edema and weeping to BLLE Skin: Left lateral foot with superior and inferior DFU, dressing CDI. Assessment and plan: Leukocytosis resolved Left foot superior and inferior diabetic foot ulcers (DFU), continue santyl and alginate daily Inferior DFU probing to bone, Xray suggestive of osteomyelitis Zosyn day 2, Zyvox day 2, continue Patient will need total of 6 weeks of antibiotics Would benefit from LTAC facility for IV antibiotics and wound management Diabetes mellitus, monitor glycemic control Protein calorie malnourished Will continue to monitor Patient discussed with
[2019-11-23] MEDS: carvediloL 12.5 MG TAB PO SCH (08:57)
[2019-11-23] MEDS: JUVEN PACKET PO SCH ×2 (08:57→20:48)
[2019-11-23] MEDS: LINEZOLID 600 MG IVPB 600 MG/300 ML BAG IV SCH (09:00)
[2019-11-23] MEDS: CEFTAZIDIME 1 GM in NA CHLORIDE 0.9% 50 ML IV SCH (10:12)
[2019-11-23] MEDS ORDERED: REGADENOSON 0.4 MG/5 ML SYR IV ONE (10:26)
--- NOTE | 2019-11-23 12:10 | RAD REPORT ---
EXAM DESCRIPTION: NM - Rest Stress Cardiac Imaging - 11/23/2019 12:03 pm CLINICAL HISTORY: Chest pain. COMPARISON: 2015 TECHNIQUE: The patient was administered approximately 10mCi of Tc 99m Sestamibi prior to resting SPE CT imaging of the heart. The patient was then administered approximately 30 mCi of Tc 99m Sestamibi f ollowing exercise or pharmacologic stress. Multiplanar SPECT images were reviewed. FINDINGS: A moderate to large area of diminished radiotracer activity involves the inferior left ve ntricular myocardium extending to the apex. It is present on rest and stress images. It is unchanged from the prior exam. The remainder of the left ventricular myocardium demonstrates normal radiotracer activity on rest and stress sequences. The left ventricular ejection fraction equals 33% IMPRESSION: Moderate to large fixed perfusion defect involving the inferior left ventricular myocar dium extending to apex consistent with infarction No evidence of stress-induced ischemia
[2019-11-23 15:55] LABS: Urine Protein/Creatinine Ratio 1.27 ratio (<0.15)
--- NOTE | 2019-11-23 17:13 | PN ---
Date of Progress Note: 11/23/2019 Subjective: The patient was admitted with over volume. The patient was started on Lasix drip. The patient started having negative balance for the last couple of days, but still has significant shortness of breath. Physical Examination: Vital Signs: Blood pressure 175/81, pulse of 75, afebrile. The patient had good urine output of 3400, negative of 1600 as weight [place] is still the same. Chest: Crackles bilateral. Heart: S1, S2. Systolic murmur. Abdomen: Soft. Ascites. Extremities: +2 edema. Laboratory Data: WBC 5.1, H and H 8.7/27.2, platelet 148. Sodium 137, potassium 4.2, bicarb 26, creatinine 1.9, BUN 51, calcium 7.3. Current Medications: The patient on include; 1. Lasix drip 10 mg per hour. 2. Metolazone. 3. Carvedilol 12.5 b.i.d. 4. Zoloft. 5. Januvia. 6. Insulin. Assessment And Plan: 1. Acute kidney injury secondary to cardiorenal, over volume, anasarca. Responds to Lasix drip, but still on the over volume side. I am going to go ahead and increase Lasix drip to 20 mg per hour. Continue metolazone and we will follow up. 2. Hypertension. We will utilize the blood pressure for more diuresis. 3. Anasarca secondary to cardiorenal as above. I am going to go ahead and send for TSH. 4. Congestive heart failure with exacerbation as above. time 35 min discussing [facility] patient and arrange treatment with the staff GAMA Voice ID: [id number] Report ID: [id number] AZUCENA
--- NOTE | 2019-11-23 17:28 | CON ---
Date of Consultation: 11/23/2019 Additional Consulting Physician: Dr. Cadena, hospitalist. DICTATION ENDS HERE NATI/CELESTINE Voice ID: [id number] Report ID: [id number]
[2019-11-23] MEDS ORDERED: INSULIN -REGULAR HUMAN 50 UNIT/0.5 ML ML SQ SCH (18:00)
--- NOTE | 2019-11-23 20:01 | P.PN ---
Subjective Date of Service: 11/23/19 [facility] Provider: [facility] Chief Complaint: CHF exacerbation no acute events overnight. overall feels slightly improved, feels swelling is improving. denies having any vision changes, headache, new numbness/tingling, chest pain. Review of Systems Eyes: Other (swelling around eyes) ENT: Unremarkable Respiratory: Shortness of Breath Cardiovascular: Edema Gastrointestinal: No Distention Genitourinary: Unremarkable Musculoskeletal: Foot Pain Integumentary: Lesions Physical Examination - Vital Signs Temperature: 97 F Blood Pressure: 149/79 Pulse: 59 Respirations: 19 Pulse Ox (%): 100 - Physical Exam General: Alert, In no apparent distress HEENT: Mucous membr. moist/pink, Other (periorbital edema R>L) Neck: JVD distended Respiratory: Diminished, Crackles/rales Cardiovascular: Edema (bilaterally) Gastrointestinal: Normal bowel sounds, Ascites Integumentary: Other (lower extremities wrapped in BLAYNE bandages) Assessment & Plan Physician Review: Patient Assessed, Agree with Above Assessment and Plan Physician Review Additional Text: Acute on chronic diastolic congestive heart failure with volume overload Diabetes mellitus type 2-insulin dependent CKD stage 4 COPD Hypertension Hyperlipidemia Plan Acute on chronic diastolic congestive heart failure with volume overload: Continue with IV diuresis per nephrology recommendation cardiology and nephrology consulted - appreciate assistance on lasix drip + metolazone to go for stress test today Last echocardiogram less than 1 year ago shows ejection fraction of 66%. Diabetes mellitus type 2-insulin dependent: SSI, qACHS accu-cheks ARTURO on CKD stage 4: Avoid nephrotoxic agents (NSAIDs, contrast) Will continue diuresis. nephrology consulted Monitor renal parameters COPD: Medications as needed for COPD. Hypertension: continue patient's home medications, titrate as needed Lower extremity wounds Wound culture positive for Providencia and enterococcus Started on Zosyn, ID consulted, recomment zosyn + ceftaz x 6 weeks, patient will need PICC Hyperlipidemia: continue patient's home medications. Disposition : Continue aggressive diuresis will need PICC and 6 weeks of IV antibiotics Time Spent Managing Pts Care (In Minutes): 35
[2019-11-23] MEDS: ATORVASTATIN 40 MG TAB PO SCH (20:47)
[2019-11-24] MEDS: PIPER/TAZO/NS 3.375gm 3.375 GM/100 ML BAG IVPB SCH ×2 (01:44→08:39)
[2019-11-24] MEDS: FUROSEMIDE 100 MG in NA CHLORIDE 0.9% 90 ML IV SCH ×3 (01:45→11:15)
[2019-11-24 04:16] LABS: Hematocrit 26.8 % (36.0-45.0); MPV 7.6 fL (7.6-11.3); RBC Red Blood Cell Count 3.05 M/uL (3.86-4.86)
[2019-11-24 04:32] LABS: Albumin 2.1 g/dL (3.4-5.0); Bilirubin Total 0.4 mg/dL (0.2-1.0); Potassium 4.2 mmol/L (3.5-5.1); Protein, Total 6.6 g/dL (6.4-8.2)
[2019-11-24 04:34] LABS: Thyroid Stimulating Hormone 45.1 uIU/mL (0.360-3.740)
[2019-11-24] MEDS: INSULIN -REGULAR HUMAN 50 UNIT/0.5 ML ML SQ SCH ×4 (07:30→21:00)
--- NOTE | 2019-11-24 08:27 | P.PN ---
Subjective Date of Service: 11/24/19 Primary [facility] Provider: [facility] Chief Complaint: CHF exacerbation no acute events overnight. continues to feel better, reports urinating a lot more. Still swollen but improving. denies having any vision changes, headache, new numbness/tingling, chest pain. Physical Examination - Vital Signs Temperature: 97.5 F Blood Pressure: 134/72 Pulse: 54 Respirations: 18 Pulse Ox (%): 97 - Physical Exam General: Alert, In no apparent distress HEENT: Mucous membr. moist/pink Neck: JVD distended Respiratory: Clear to auscultation bilaterally, Diminished Cardiovascular: Regular rate/rhythm, Normal S1 S2, Edema (bilaterally up to abdomen) Gastrointestinal: No tenderness, Ascites Integumentary: Other (bilateral lower legs wrapped in BLAYNE bandage, c/d/i) Neurological: Normal speech, Normal affect Assessment & Plan Physician Review Additional Text: Acute on chronic diastolic congestive heart failure with volume overload, anasarca Diabetes mellitus type 2-insulin dependent CKD stage 4 COPD Hypertension Hyperlipidemia Plan Acute on chronic diastolic congestive heart failure with volume overload, anasarca: Continue with IV diuresis per nephrology recommendation - currently on Lasix drip 20 + metolazone cardiology and nephrology consulted - appreciate assistance stress test done - inferior L ventricle infarction noted, unchanged; h/o ME s/p CABG x4 EF: ~33% on stress test Last echocardiogram less than 1 year ago shows ejection fraction of 66%. Diabetes mellitus type 2-insulin dependent: SSI, qACHS accu-cheks ARTURO on CKD stage 4: Avoid nephrotoxic agents (NSAIDs, contrast) Will continue diuresis, nephrology consulted Monitor renal parameters COPD: Medications as needed for COPD. Hypertension: continue patient's home medications, titrate as needed Lower extremity wounds Wound culture positive for Providencia and enterococcus Started on Zosyn, ID consulted, recommended zosyn + ceftaz x 6 weeks PICC placed 11/23/19 Hyperlipidemia: continue patient's home medications. Disposition : Continue aggressive diuresis PICC placed yesterday for 6 weeks of Abx anticipate dc home in 24 -48 hrs Time Spent Managing Pts Care (In Minutes): 35
[2019-11-24] MEDS: CEFTAZIDIME 1 GM in NA CHLORIDE 0.9% 50 ML IV SCH (08:39)
[2019-11-24] MEDS: carvediloL 12.5 MG TAB PO SCH (08:39)
[2019-11-24] MEDS: BUPROPION HCL XL 150 MG TAB PO SCH (08:40)
[2019-11-24] MEDS: ASPIRIN 81 MG CHEWABLE TABLET PO SCH (08:40)
[2019-11-24] MEDS: GABAPENTIN 300 MG CAP PO SCH ×2 (08:40→21:22)
[2019-11-24] MEDS: SERTRALINE HCL 50 MG TAB PO SCH (08:40)
[2019-11-24] MEDS: CLOPIDOGREL 75 MG TABLET PO SCH (08:40)
[2019-11-24] MEDS: CODEINE 30MG/APAP 300MG TAB PO PRN ×3 (08:41→21:26)
--- NOTE | 2019-11-24 08:41 | TREADPHA ---
DX: CHEST PAIN Date of Study: 11/23/2019 Ht: 5' 7 " Wt: 214 lb 14.4 oz Consulting Physician: MECCA MEDICATIONS: TYLENOL, LIPITOR, ASPIRIN, WELLBUTRIN XL, COREG, PLAVIX, HOSEA, NOVOLIN - R, NEURONTIN, HISTORY: 64 YEAR OLD FEMALE WITH HISTORY OF CONGESTIVE HEART FAILURE, COPD, HYPERTENSION, INSULIN DEPENDENT DIABETES MELLITUS, BYPASS, CANCER, CELLULITIS. ADMITTED FOR WEAKNESS, DIFFICULTY BREATHING AND BACK PAIN. PHYSICIAL EXAMINATION: RESTING B.P.: 166/72 RESTING H.R.: 58 RESTING EKG: SINUS RHYTHM, BI FASCICULAR BLOCK PROTOCOL: LEXISCAN EXERCISE TIME: 3:30 B.P. AT PEAK STRESS: 162/69 IMPRESSION: LEXISCAN STRESS TEST PERFORMED. CARDIOLITE INJECTED PER PROTOCOL. NO SUPRAVENTRICULAR TACHYCARDIA OR VENTRICULAR TACHYCARDIA NOTED. TWO PREMATURE VENTRICULAR COMPLEXES NOTED POST INJECTION. TOLERATED WELL. SEE NUCLEAR MEDICINE REPORT.
[2019-11-24] MEDS: FLUTICASONE IH SCH (08:42)
[2019-11-24] MEDS: HEPARIN 5000 UNIT/ML 1 ML VIAL SQ SCH ×2 (08:42→21:22)
[2019-11-24] MEDS: COLLAGENASE 30 GM OINTMENT TOP SCH (08:43)
[2019-11-24] MEDS: JUVEN PACKET PO SCH ×2 (08:43→21:22)
[2019-11-24] MEDS: METOLAZONE 2.5 MG TABLET PO SCH ×2 (08:44→21:24)
--- NOTE | 2019-11-24 10:08 | RAD REPORT ---
EXAM DESCRIPTION: RAD - Chest Single View - 11/23/2019 9:52 pm CLINICAL HISTORY: The patient is 64 years old and is Female; PICC line Placement TECHNIQUE: Frontal view of the chest. COMPARISON: Chest radiograph November 18, 2019 FINDINGS: LUNGS: Persistent right basilar opacity is noted. Perihilar interstitial prominence is noted, slightly improved. PLEURAL SPACE: Right pleural effusion persists. No pneumothorax. HEART: The cardiac silhouette is enlarged. MEDIASTINUM: Unremarkable. BONES/JOINTS: Median sternotomy wires are present. VASCULATURE: Improvement in the prominence of central vasculature is noted. TUBES, LINES AND DEVICES: A left upper extremity PICC is present with the tip at the SVC/RA junc tion. IMPRESSION: 1. A left upper extremity PICC is present with the tip at the SVC/RA junction. 2. Persistent right basilar opacity with associated effusion. Electronically signed by: Chelsea Puri MD 11/23/2019 10:12 PM CDT Due to temporary technical issues with the PACS/Fluency reporting system, reports are being signed by the in house radiologist without review as a courtesy to ensure prompt reporting. The interpreting r adiologist is fully responsible for the content of the report.
[2019-11-24] MEDS ORDERED: BUMETANIDE 1 MG/4 ML VIAL IV SCH (12:00)
[2019-11-24] MEDS: CALCITROL 0.25 MCG CAP PO SCH (12:33)
[2019-11-24] MEDS: NA CHLORIDE 0.9% IV SCH (13:12)
[2019-11-24] MEDS: BUMETANIDE IV SCH (13:12)
[2019-11-24] MEDS: IRON SUCROSE 200 MG in NA CHLORIDE 0.9% 250 ML IV SCH (13:13)
--- NOTE | 2019-11-24 13:14 | P.PN ---
Date of Service: 11/24/19 Subjective: Patient is a 64 year old female with pmh of chronic diastolic congestive heart failure who presents with shortness of breath and swelling to bilateral lower extremities. Patient found to have wounds on left foot which I have been consulted for. Reports wounds to left foot for a few weeks. Patient follows up at the wound healing center weekly. Patient sitting upright on the side of the bed, no acute distress. Agreeable to transfer to LTAC facility. Objective: Temp Pulse Resp BP Pulse Ox 97.5 F 59 18 137/62 100 11/24/19 08:31 11/24/19 11:15 11/24/19 09:41 11/24/19 11:15 11/24/19 09:41 Labs: Na 137, K 4.2, BUN 57, Creat 2.02, albumin 2.5, WBC 4.8, Hgb 8.5, Hct 26.8 Left foot xray 11/21: EXAM DESCRIPTION: RAD - Foot Left 2 View - 11/22/2019 8:50 pm CLINICAL HISTORY: Left Foot pain FINDINGS: No fracture or dislocation is seen. . Lateral soft tissue ulceration Lucency is present within the fifth metatarsal head and base of fifth proximal phalanx probably osteomyelitis ROS: General: Awake alert, oriented CV: S1,S2 RESP: Diminished breath sounds Extremities: edema and weeping to BLLE Skin: Left lateral foot with superior and inferior DFU, dressing CDI. Assessment and plan: Leukocytosis resolved Left foot superior and inferior diabetic foot ulcers (DFU), continue santyl and alginate daily Inferior DFU probing to bone, Xray suggestive of osteomyelitis Zosyn day 3, Ceftazidime day 2, continue for total of 6 weeks Would benefit from LTAC facility for IV antibiotics and wound management Diabetes mellitus, monitor glycemic control Protein calorie malnourished Will continue to monitor Patient discussed with
[2019-11-24] MEDS: HYDRALAZINE HCL 10 MG TABLET PO SCH ×2 (13:40→21:22)
--- NOTE | 2019-11-24 15:30 | PN ---
Date of Progress Note: 11/24/2019 Subjective: The patient is admitted with anasarca, acute kidney injury. Patient was started on Lasix drip achieving some negative balance but patient still has significant anasarca. Objective: Vital Signs: Blood pressure 137/62, pulse of 59. Patient had urine output of 3400, negative of 1600. Chest: Crackles bilateral. Heart: S1, S2. Systolic murmur. Abdomen: Soft, nontender. Extremities: +3 edema. Laboratory Data: WBC 4.8, H and H 8.5/26.8, platelet 143. Sodium 137, potassium 4.2, bicarb 30, BUN 57, creatinine 2, GFR of 25, calcium 7.2, phosphorus of 3. TSH of 45. Assessment And Plan: 1. Acute kidney injury secondary to cardiorenal, still over volume. I am going to continue the patient on diuresis. Given the current response, I am going to go ahead and switch the patient to Bumex drip and we will follow up. 2. Hypertension. We will utilize blood pressure for more diuresis. 3. Anasarca secondary to cardiorenal and hypothyroidism. I am going to start the patient on levothyroxine. We will switch the Bumex. Continue metolazone. 4. Hypothyroidism as above. The patient will be started on levothyroxine. 5. Leg infection. Continue current antibiotic. 6. Diabetes as by primary. time spent for face to face care , placing order and dicussing with staff, other erp implementation consultant and patient/ patient family 35 min NATI/CELESTINE Voice ID: [id number] Report ID: [id number] AZUCENA
[2019-11-24] MEDS: PIPER/TAZO/NS 2.25gm 2.25 GM/50 ML BAG IVPB SCH (18:25)
[2019-11-24] MEDS: ATORVASTATIN 40 MG TAB PO SCH (21:22)
--- NOTE | 2019-11-25 00:18 | PN ---
Date of Progress Note: 11/23/2019 Ms. Priest is a patient, who is 64 years old, was admitted by Dr. Nettles for hypertension, COPD, dyslipi demia, diabetes, and congestive heart failure as well as lower extremity wound. Infectious Disease i s following. She is on Zosyn. She has [id number] diastolic congestive heart failure. She is diuresing well. She has a creatinine of 2.0, has chronic renal failure stage 4. She has had a CABG in the past as well. This was done in 2018 in [place]. She continues to diurese. She is on Lasix d rip. She is on metolazone. Is improving. I would continue her present regimen. Right now, Nephrol tamika is following her. She can go home, whenever it is okay with Dr. Nettles, on her home medications p polly Lasix and metolazone. We have to be very careful with her kidney function. I think doing a Erin scan as an outpatient in the near future would be reasonable. JAMIA/CELESITNE Voice ID: [id number] Report ID: [id number]
[2019-11-25] MEDS: PIPER/TAZO/NS 2.25gm 2.25 GM/50 ML BAG IVPB SCH ×4 (00:51→16:58)
[2019-11-25] MEDS: HYDRALAZINE HCL 20 MG/ML VIAL IV PRN (01:03)
[2019-11-25] MEDS: CODEINE 30MG/APAP 300MG TAB PO PRN ×3 (06:06→20:04)
[2019-11-25] MEDS ORDERED: LEVOTHYROXINE SOD 0.075 MG TAB PO SCH (06:30)
[2019-11-25 06:59] LABS: Hematocrit 25.3 % (36.0-45.0); MPV 7.3 fL (7.6-11.3); RBC Red Blood Cell Count 2.88 M/uL (3.86-4.86)
[2019-11-25] MEDS: INSULIN -REGULAR HUMAN 50 UNIT/0.5 ML ML SQ SCH ×4 (07:30→20:08)
[2019-11-25] MEDS: BUPROPION HCL XL 150 MG TAB PO SCH (07:43)
[2019-11-25] MEDS: GABAPENTIN 300 MG CAP PO SCH ×2 (07:43→20:04)
[2019-11-25] MEDS: SERTRALINE HCL 50 MG TAB PO SCH (07:43)
[2019-11-25] MEDS: CLOPIDOGREL 75 MG TABLET PO SCH (07:43)
[2019-11-25] MEDS: ASPIRIN 81 MG CHEWABLE TABLET PO SCH (07:43)
[2019-11-25] MEDS: carvediloL 12.5 MG TAB PO SCH (07:44)
[2019-11-25] MEDS: HEPARIN 5000 UNIT/ML 1 ML VIAL SQ SCH (07:44)
[2019-11-25] MEDS: HYDRALAZINE HCL 10 MG TABLET PO SCH ×3 (07:44→20:04)
[2019-11-25] MEDS: CEFTAZIDIME 1 GM in NA CHLORIDE 0.9% 50 ML IV SCH (07:45)
[2019-11-25] MEDS: METOLAZONE 2.5 MG TABLET PO SCH ×2 (07:45→20:10)
[2019-11-25] MEDS: JUVEN PACKET PO SCH ×2 (07:46→20:03)
[2019-11-25] MEDS: COLLAGENASE 30 GM OINTMENT TOP SCH (07:47)
[2019-11-25 08:12] LABS: Albumin 1.9 g/dL (3.4-5.0); Magnesium 1.9 mg/dL (1.8-2.4); Potassium 4.2 mmol/L (3.5-5.1)
[2019-11-25] MEDS ORDERED: NA CHLORIDE 0.9% 250 ML IV SCH (10:00)
[2019-11-25] MEDS: NA CHLORIDE 0.9% IV SCH ×2 (11:40→13:00)
[2019-11-25] MEDS: BUMETANIDE IV SCH ×2 (11:40→13:00)
--- NOTE | 2019-11-25 12:03 | P.PN ---
Date of Service: 11/25/19 Subjective: Patient is a 64 year old female with pmh of chronic diastolic congestive heart failure who presents with shortness of breath and swelling to bilateral lower extremities. Patient found to have wounds on left foot which I have been consulted for. Reports wounds to left foot for a few weeks. Patient follows up at the wound healing center weekly. Patient sitting upright on the side of the bed, no acute distress. Pending transfer to LTAC facility. Objective: Temp Pulse Resp BP Pulse Ox 96 F L 54 18 121/56 L 99 11/25/19 08:00 11/25/19 11:40 11/25/19 11:08 11/25/19 11:40 11/25/19 11:08 Labs: Na 137, K 4.2, BUN 61, Creat 2.12, albumin 1.9, WBC 4.3, Hgb 7.8, Hct 25.3 Left foot xray 11/21: EXAM DESCRIPTION: RAD - Foot Left 2 View - 11/22/2019 8:50 pm CLINICAL HISTORY: Left Foot pain FINDINGS: No fracture or dislocation is seen. . Lateral soft tissue ulceration Lucency is present within the fifth metatarsal head and base of fifth proximal phalanx probably osteomyelitis ROS: General: Awake alert, oriented CV: S1,S2 RESP: Diminished breath sounds Extremities: edema and weeping to BLLE Skin: Left lateral foot with superior and inferior DFU, dressing CDI. Assessment and plan: Leukocytosis resolved Left foot superior and inferior diabetic foot ulcers (DFU), continue santyl and alginate daily Inferior DFU probing to bone, Xray suggestive of osteomyelitis Zosyn day 4, Ceftazidime day 3, continue for total of 6 weeks Would benefit from LTAC facility for IV antibiotics and wound management Diabetes mellitus, monitor glycemic control Protein calorie malnourished Will continue to monitor Patient discussed with
[2019-11-25] MEDS ORDERED: MAGNESIUM SULFATE 1 gm IVPB 1 GM/100 ML BAG IV ONE (12:33)
--- NOTE | 2019-11-25 16:13 | PN ---
Date of Progress Note: 11/25/2019 Subjective: The patient was admitted with over volume, anasarca. The patient was placed on Lasix drip and switched to Bumex drip. The patient has been in negative balance. Objective: Vital Signs: Blood pressure 121/56, pulse of 54. The patient has negative balance of 700. Chest: Crackles bilateral. Heart: S1, S2. Systolic murmur. Abdomen: Soft, nontender. Extremities: +3 edema. Dressing on the legs. Laboratory Data: WBC 4.3, H and H 7.8/25.3, platelets 136. Sodium 137, potassium 4.2, bicarb 25, BUN 61, creatinine 2.1, calcium 7.5, phosphorus 3, magnesium 1.9, albumin 1.9. Current Medications: The patient is on include: 1. Aspirin. 2. Ceftazidime. 3. Zosyn. 4. Plavix. 5. IV iron. 6. Hydralazine 20 t.i.d. 7. Zoloft. 8. Gabapentin. 9. Bumex drip. 10. Metolazone 5 mg b.i.d. Assessment And Plan: 1. Acute kidney injury on chronic kidney disease, over volume with anasarca. I am going to increase the Bumex drip and we will try to establish better volume control. We will monitor the patient. We will consider adding albumin if needed to mobilize third space fluid and we will monitor. 2. Hypertension, controlled, optimal. Currently blood pressure has started trending down. To avoid dropping in the blood pressure, I am going to go ahead and decrease her hydralazine to 10 mg to utilize blood pressure for more diuresis. 3. Hypomagnesemia. We will supplement. 4. Anasarca secondary to renal failure/hypothyroidism. I am going to go ahead and increase her levothyroxine to 88 mcg and we will follow up. 5. Wound infection. The patient on antibiotic, dose appropriate. Follow up with ID and Wound Care. 6. Iron deficiency anemia. Continue IV iron. time spent for face to face care , placing order and dicussing with staff, other sourcing consultant and patient/ patient family 35 min NATI/CELESTINE Voice ID: [id number] Report ID: [id number] MTDDannielle
--- NOTE | 2019-11-25 16:25 | P.PN ---
Subjective Date of Service: 11/25/19 [facility] Provider: [facility] Chief Complaint: CHF exacerbation no acute events overnight. continues to feel better, reports urinating without issue. Still swollen but slowly improving. denies having any vision changes, headache, new numbness/tingling, chest pain. Physical Examination - Vital Signs Temperature: 96 F Blood Pressure: 121/56 Pulse: 54 Respirations: 18 Pulse Ox (%): 99 - Physical Exam General: Alert, In no apparent distress, Oriented x3 Neck: JVD distended Respiratory: Clear to auscultation bilaterally, Normal air movement Cardiovascular: Regular rate/rhythm, Normal S1 S2, Edema (to abdomen) Gastrointestinal: Other (abdominal wall edema less than yesterday), Ascites (less) Integumentary: Other (b/l lower extremities wrapped in BLAYNE bandages) Neurological: Normal speech, Normal affect Assessment & Plan Physician Review Additional Text: Acute on chronic diastolic congestive heart failure with volume overload, anasarca Diabetes mellitus type 2-insulin dependent CKD stage 4 COPD Hypertension Hyperlipidemia Plan Acute on chronic diastolic congestive heart failure with volume overload, anasarca: Continue with IV diuresis per nephrology recommendation - currently on Bumex drip 10 cardiology and nephrology consulted - appreciate assistance stress test done - inferior L ventricle infarction noted, unchanged; h/o [place] s/p CABG x4 EF: ~33% on stress test Last echocardiogram less than 1 year ago shows ejection fraction of 66%. slowly improving, comfortable at rest, but ESPITIA Diabetes mellitus type 2-insulin dependent: SSI, qACHS accu-cheks ARTURO on CKD stage 4: Avoid nephrotoxic agents (NSAIDs, contrast) Will continue diuresis, nephrology consulted Monitor renal parameters slowly improving, has significant volume overload / anasarca COPD: Medications as needed for COPD. Hypertension: continue patient's home medications, titrate as needed Lower extremity wounds Wound culture positive for Providencia and enterococcus ID consulted, recommended zosyn + ceftaz x 6 weeks PICC placed 11/23/19 Hyperlipidemia: continue patient's home medications. Disposition : Continue aggressive diuresis PICC placed 11/22 for 6 weeks of Abx anticipate dc home in ~48 hrs, difficult to remove a lot fluid quickly Time Spent Managing Pts Care (In Minutes): 35
[2019-11-25] MEDS: ATORVASTATIN 40 MG TAB PO SCH (20:04)
[2019-11-25 20:07] LABS: Hematocrit 29.3 % (36.0-45.0)
[2019-11-26] MEDS: PIPER/TAZO/NS 2.25gm 2.25 GM/50 ML BAG IVPB SCH ×3 (00:20→19:21)
[2019-11-26] MEDS: BUMETANIDE IV SCH ×2 (04:13→20:40)
[2019-11-26] MEDS: NA CHLORIDE 0.9% IV SCH ×2 (04:13→20:40)
[2019-11-26 04:14] LABS: Hematocrit 28.3 % (36.0-45.0); MPV 7.6 fL (7.6-11.3); RBC Red Blood Cell Count 3.26 M/uL (3.86-4.86)
[2019-11-26 04:26] LABS: Phosphorus 3.3 mg/dL (2.5-4.9); Potassium 3.9 mmol/L (3.5-5.1)
[2019-11-26] MEDS: CODEINE 30MG/APAP 300MG TAB PO PRN ×3 (05:09→19:11)
[2019-11-26] MEDS: LEVOTHYROXINE SOD 0.088 MG TAB PO SCH (05:09)
[2019-11-26] MEDS: INSULIN -REGULAR HUMAN 50 UNIT/0.5 ML ML SQ SCH ×4 (07:30→21:28)
[2019-11-26] MEDS ORDERED: POTASSIUM CL SA 10 MEQ TAB PO ONE (09:00)
[2019-11-26] MEDS: COLLAGENASE 30 GM OINTMENT TOP SCH (09:00)
[2019-11-26] MEDS ORDERED: CODEINE 30MG/APAP 300MG TAB PO ONE (09:00)
[2019-11-26] MEDS: CEFTAZIDIME 1 GM in NA CHLORIDE 0.9% 50 ML IV SCH (09:08)
[2019-11-26] MEDS: ASPIRIN 81 MG CHEWABLE TABLET PO SCH (09:13)
[2019-11-26] MEDS: GABAPENTIN 300 MG CAP PO SCH ×2 (09:13→20:41)
[2019-11-26] MEDS: carvediloL 12.5 MG TAB PO SCH (09:13)
[2019-11-26] MEDS: SERTRALINE HCL 50 MG TAB PO SCH (09:13)
[2019-11-26] MEDS: CLOPIDOGREL 75 MG TABLET PO SCH (09:13)
[2019-11-26] MEDS: METOLAZONE 2.5 MG TABLET PO SCH ×2 (09:14→20:41)
[2019-11-26] MEDS: HYDRALAZINE HCL 10 MG TABLET PO SCH (09:38)
[2019-11-26] MEDS: BUPROPION HCL XL 150 MG TAB PO SCH (09:38)
[2019-11-26] MEDS: JUVEN PACKET PO SCH ×2 (09:40→20:42)
--- NOTE | 2019-11-26 10:47 | P.PN ---
Date of Service: 11/26/19 Subjective: Patient is a 64 year old female with pmh of chronic diastolic congestive heart failure who presents with shortness of breath and swelling to bilateral lower extremities. Patient found to have wounds on left foot which I have been consulted for. Reports wounds to left foot for a few weeks. Patient follows up at the wound healing center weekly. Patient sitting upright on the side of the bed, no acute distress. Plans for home with home health for IV antibiotics and wound management Objective: Temp Pulse Resp BP Pulse Ox 96.8 F 81 19 171/77 H 98 11/26/19 08:00 11/26/19 09:14 11/26/19 09:36 11/26/19 09:14 11/26/19 09:36 Labs: Na 139, K 3.9, BUN 61, Creat 2.18, albumin 1.9, WBC 3.9, Hgb 9.0, Hct 28.3 Left foot xray 11/21: EXAM DESCRIPTION: RAD - Foot Left 2 View - 11/22/2019 8:50 pm CLINICAL HISTORY: Left Foot pain FINDINGS: No fracture or dislocation is seen. . Lateral soft tissue ulceration Lucency is present within the fifth metatarsal head and base of fifth proximal phalanx probably osteomyelitis ROS: General: Awake alert, oriented CV: S1,S2 RESP: Diminished breath sounds Extremities: edema and weeping to BLLE Skin: Left lateral foot with superior and inferior DFU, wound beds with granulation tissue and sanguineous drainage. Assessment and plan: Leukocytosis resolved Left foot superior and inferior diabetic foot ulcers (DFU), continue santyl and alginate daily Inferior DFU probing to bone, Xray suggestive of osteomyelitis Zosyn day 5, Ceftazidime day 4, continue for total of 6 weeks Diabetes mellitus, monitor glycemic control Protein calorie malnourished Will continue to monitor Patient discussed with
--- NOTE | 2019-11-26 11:03 | P.PN ---
Subjective Date of Service: 11/26/19 [facility] Provider: [facility] Chief Complaint: CHF exacerbation Subjective: Improving Subjective a 64-year-old AA woman with past medical history of hypertension, diabetes mellitus, COPD, Ex smoker, CKD stage 4 baseline Cr ~1.7-2.0 , CAD S/P CABG, CHF lasix and metolazone pt presented with SOB and worsening LE edema, pt had multiple admission fr similar symptoms, as per Pt she required HD in the past i today edma cont to improve , lasix drip swithced to Bumex drip , UO decreased will Bumex drip and metolazone Cont IV iron PT/OT will check Mg and Markie Physical exam general: AAOX3, NAD ,mild distress Neck; Supple, No elevated JVD hear: RRR, normal S1,2 no murmur or rub Chest: decreased aie entry B/L Abdomen: soft, , Nt Extremities +3 edema , with oozing , leg dresses A/P CKD IV with nephrotic range proteinuria Cr stable at baseline previous serology w/u -ve cont bumex and metolazone HTN elevated , cont current meds cont diuretics anasarca due to CHF +/- CKD and hypoalbuminemia will switch lasix to IV drip and increase metolazone fluid restriction DM as per primary anemia o chronic disease Cont IV iron eluckocytosis cont abx Physical Examination - Vital Signs Temperature: 96.8 F Blood Pressure: 171/77 Pulse: 81 Respirations: 19 Pulse Ox (%): 98 Assessment And Plan Physician Review: Patient Assessed, Agree with Above Assessment and Plan
[2019-11-26] MEDS: CALCITROL 0.25 MCG CAP PO SCH (12:55)
[2019-11-26] MEDS: HYDRALAZINE HCL 25 MG TABLET PO SCH ×2 (12:56→20:41)
--- NOTE | 2019-11-26 14:39 | P.PN ---
Subjective Date of Service: 11/26/19 [facility] Provider: [facility] Chief Complaint: CHF exacerbation no acute events overnight. breathing more comfortably, swelling around eye has gone down, feels like swelling is slowly coming off Still swollen but slowly improving. denies having any vision changes, headache, new numbness/tingling, chest pain. Does endorse some muscle aches, mostly in b/l thighs/legs this morning, no skin changes Review of Systems 10-point ROS is otherwise unremarkable Physical Examination - Vital Signs Temperature: 96.4 F Blood Pressure: 173/91 Pulse: 54 Respirations: 19 Pulse Ox (%): 100 - Physical Exam General: Alert, In no apparent distress HEENT: Sclerae nonicteric Neck: Supple, No LAD Respiratory: Clear to auscultation bilaterally (very mild crackles at bases), Diminished (slightly, throughout) Cardiovascular: Edema (up to abdomen) Gastrointestinal: Normal bowel sounds, No tenderness, Ascites Integumentary: Other (b/l legs wrapped in BLAYNE bandage, c/d/i) Neurological: Normal speech, Normal affect Assessment & Plan Physician Review Additional Text: Acute on chronic diastolic congestive heart failure with volume overload, anasarca Diabetes mellitus type 2-insulin dependent CKD stage 4 COPD Hypertension Hyperlipidemia Plan Acute on chronic diastolic congestive heart failure with volume overload, anasarca: Continue with IV diuresis per nephrology recommendation - currently on Bumex drip 10, going to add metolazone cardiology and nephrology consulted - appreciate assistance stress test done - inferior L ventricle infarction noted, unchanged; h/o [place] s/p CABG x4; EF: ~33% on stress test Last echocardiogram less than 1 year ago shows ejection fraction of 66%. slowly improving, comfortable at rest, but ESPITIA still with significant anasarca unfortunately patient does not qualify for SNF/LTAC due to insurance Diabetes mellitus type 2-insulin dependent: SSI, qACHS accu-cheks ARTURO on CKD stage 4: Avoid nephrotoxic agents (NSAIDs, contrast) Will continue diuresis, nephrology consulted slowly improving, has significant volume overload / anasarca COPD: Medications as needed for COPD. Hypertension: continue patient's home hydralazine, carvedilol Lower extremity wounds Wound culture positive for Providencia and enterococcus ID consulted, recommended zosyn + ceftaz x 6 weeks PICC placed 11/23/19 Hyperlipidemia: continue patient's home statin Disposition : Continue aggressive diuresis PICC placed 11/22 for 6 weeks of Abx anticipate dc home in ~48-72 hrs, difficult to remove a lot fluid quickly Time Spent Managing Pts Care (In Minutes): 35
[2019-11-26] MEDS: ATORVASTATIN 40 MG TAB PO SCH (20:41)
[2019-11-27] MEDS: PIPER/TAZO/NS 2.25gm 2.25 GM/50 ML BAG IVPB SCH ×3 (01:10→16:26)
[2019-11-27] MEDS: COLLAGENASE 30 GM OINTMENT TOP SCH ×2 (04:30→08:43)
[2019-11-27 05:15] LABS: Hematocrit 28.7 % (36.0-45.0); MPV 7.6 fL (7.6-11.3)
[2019-11-27] MEDS: CODEINE 30MG/APAP 300MG TAB PO PRN ×3 (05:20→23:52)
[2019-11-27] MEDS: LEVOTHYROXINE SOD 0.088 MG TAB PO SCH (05:21)
[2019-11-27 05:40] LABS: Albumin 1.8 g/dL (3.4-5.0); Phosphorus 3.3 mg/dL (2.5-4.9); Potassium 4.2 mmol/L (3.5-5.1)
[2019-11-27] MEDS: HYDRALAZINE HCL 20 MG/ML VIAL IV PRN (06:15)
[2019-11-27] MEDS: INSULIN -REGULAR HUMAN 50 UNIT/0.5 ML ML SQ SCH ×4 (07:30→20:51)
[2019-11-27] MEDS: CLOPIDOGREL 75 MG TABLET PO SCH (08:39)
[2019-11-27] MEDS: carvediloL 12.5 MG TAB PO SCH (08:39)
[2019-11-27] MEDS: ASPIRIN 81 MG CHEWABLE TABLET PO SCH (08:40)
[2019-11-27] MEDS: SERTRALINE HCL 50 MG TAB PO SCH (08:40)
[2019-11-27] MEDS: GABAPENTIN 300 MG CAP PO SCH ×2 (08:40→21:00)
[2019-11-27] MEDS: METOLAZONE 2.5 MG TABLET PO SCH (08:40)
[2019-11-27] MEDS: BUPROPION HCL XL 150 MG TAB PO SCH (08:40)
[2019-11-27] MEDS: HYDRALAZINE HCL 25 MG TABLET PO SCH ×3 (08:40→21:00)
[2019-11-27] MEDS: CEFTAZIDIME 1 GM in NA CHLORIDE 0.9% 50 ML IV SCH (08:41)
[2019-11-27] MEDS: JUVEN PACKET PO SCH ×2 (08:42→21:01)
--- NOTE | 2019-11-27 10:06 | P.PN ---
Subjective Date of Service: 11/27/19 Primary [facility] Provider: [facility] Chief Complaint: CHF exacerbation Subjective: No new changes Review of Systems 10-point ROS is otherwise unremarkable Physical Examination - Vital Signs Temperature: 96.2 F Blood Pressure: 164/71 Pulse: 94 Respirations: 19 Pulse Ox (%): 96 - Physical Exam General: Alert, In no apparent distress HEENT: Atraumatic, Normocephalic Neck: Supple Respiratory: Clear to auscultation bilaterally Cardiovascular: Regular rate/rhythm, Normal S1 S2, Edema Capillary refill: <2 Seconds Gastrointestinal: Soft and benign, W/out hepatosplenomegaly Musculoskeletal: No clubbing, Swelling, Erythema, Tenderness Integumentary: No rashes, Tenderness/swelling Neurological: Normal speech, Normal strength at 5/5 x4 extr Lymphatics: No axilla or inguinal lymphadenopathy Assessment & Plan - Problems (Diagnosis) (1) Acute exacerbation of CHF (congestive heart failure) Onset Date: 02/04/17 Current Visit: No Status: Acute (2) Anasarca Onset Date: 10/03/17 Current Visit: No Status: Acute (3) Anemia Current Visit: No Status: Acute Physician Review: Patient Assessed, Agree with Above Assessment and Plan Physician Review Additional Text: Acute on chronic diastolic congestive heart failure with volume overload, anasarca Diabetes mellitus type 2-insulin dependent CKD stage 4 COPD Hypertension Hyperlipidemia Plan Acute on chronic diastolic congestive heart failure with volume overload, anasarca: Continue with IV diuresis per nephrology recommendation - currently on Bumex drip 10, going to add metolazone cardiology and nephrology consulted - appreciate assistance stress test done - inferior L ventricle infarction noted, unchanged; h/o [place] s/p CABG x4; EF: ~33% on stress test Last echocardiogram less than 1 year ago shows ejection fraction of 66%. slowly improving, comfortable at rest, but ESPITIA still with significant anasarca unfortunately patient does not qualify for SNF/LTAC due to insurance Appreciate help from the cardiology, recommended to continue diuretics Diabetes mellitus type 2-insulin dependent: SSI, qACHS accu-cheks ARTURO on CKD stage 4: Avoid nephrotoxic agents (NSAIDs, contrast) Will continue diuresis, nephrology consulted slowly improving, has significant volume overload / anasarca COPD: Medications as needed for COPD. Hypertension: continue patient's home hydralazine, carvedilol Lower extremity wounds Wound culture positive for Providencia and enterococcus ID consulted, recommended zosyn + ceftaz x 6 weeks PICC placed 11/23/19 Continue antibiotics and monitor CBC BMP daily Hyperlipidemia: continue patient's home statin Disposition : Continue aggressive diuresis PICC placed 11/22 for 6 weeks of Abx anticipate dc home in 1-2 days Time Spent Managing Pts Care (In Minutes): 43
[2019-11-27] MEDS: IRON SUCROSE 200 MG in NA CHLORIDE 0.9% 250 ML IV SCH (12:01)
[2019-11-27] MEDS: BUMETANIDE IV SCH (12:45)
[2019-11-27] MEDS: NA CHLORIDE 0.9% IV SCH (12:45)
[2019-11-27] MEDS: METOLAZONE 5 MG TABLET PO SCH (21:00)
[2019-11-27] MEDS: ATORVASTATIN 40 MG TAB PO SCH (21:00)
--- NOTE | 2019-11-27 23:51 | PN ---
Date of Progress Note: 11/27/2019 Chief Complaint: Acute on chronic kidney injury, cardiorenal syndrome, congestive heart failure exac erbation, fluid overload. Subjective: The patient has lower extremity edema, has been treated with Lasix. The patient has chr onic kidney disease stage 4. Creatinine level 1.7. She has diabetes mellitus, diabetic kidney disea se, hypertension, hypertensive heart and kidney disease. She is a former smoker. Review of Systems: Denies PND or orthopnea. Physical Examination: Lungs: Diminished breath sounds at bases. Heart: S1, S2. Abdomen: Soft, benign. Extremities: Edema 3+. No oozing. Dressing in place. Impression And Plan: 1.Chronic kidney disease stage 4 with nephrotic range proteinuria. Serum creatinine level is stabil izing, plateauing. Continue diuretics. Continue Bumex and metolazone. Monitor fluid balance and el ectrolytes. 2.Hypertension. Blood pressure is elevated. Continue current treatment and adjust dose of diuretic s according to volume status. The patient was switched from p.o. medication to IV drip. Metolazone was added and the patient is on fluid restriction. EB/MODL Voice ID: [id number] Report ID: [id number]
[2019-11-28] MEDS: PIPER/TAZO/NS 2.25gm 2.25 GM/50 ML BAG IVPB SCH ×3 (00:57→17:31)
[2019-11-28 04:37] LABS: Albumin 1.9 g/dL (3.4-5.0); Phosphorus 3.4 mg/dL (2.5-4.9); Potassium 3.8 mmol/L (3.5-5.1)
[2019-11-28] MEDS ORDERED: POTASSIUM CL SA 10 MEQ TAB PO ONE (04:47)
[2019-11-28] MEDS: BUMETANIDE IV SCH ×3 (05:00→21:43)
[2019-11-28] MEDS: NA CHLORIDE 0.9% IV SCH ×3 (05:00→21:43)
[2019-11-28] MEDS: LEVOTHYROXINE SOD 0.088 MG TAB PO SCH (05:24)
[2019-11-28] MEDS: INSULIN -REGULAR HUMAN 50 UNIT/0.5 ML ML SQ SCH ×4 (07:30→21:00)
[2019-11-28] MEDS: CODEINE 30MG/APAP 300MG TAB PO PRN ×3 (08:25→21:47)
[2019-11-28] MEDS: CLOPIDOGREL 75 MG TABLET PO SCH (08:26)
[2019-11-28] MEDS: ASPIRIN 81 MG CHEWABLE TABLET PO SCH (08:26)
[2019-11-28] MEDS: BUPROPION HCL XL 150 MG TAB PO SCH (08:26)
[2019-11-28] MEDS: HYDRALAZINE HCL 25 MG TABLET PO SCH ×3 (08:26→21:42)
[2019-11-28] MEDS: METOLAZONE 5 MG TABLET PO SCH ×2 (08:27→21:42)
[2019-11-28] MEDS: SERTRALINE HCL 50 MG TAB PO SCH (08:27)
[2019-11-28] MEDS: GABAPENTIN 300 MG CAP PO SCH ×2 (08:27→21:42)
[2019-11-28] MEDS: carvediloL 12.5 MG TAB PO SCH (08:27)
[2019-11-28] MEDS: JUVEN PACKET PO SCH ×2 (08:32→21:48)
[2019-11-28] MEDS: CEFTAZIDIME 1 GM in NA CHLORIDE 0.9% 50 ML IV SCH (08:33)
--- NOTE | 2019-11-28 10:14 | P.PN ---
Subjective Date of Service: 11/28/19 Primary [facility] Provider: [facility] Chief Complaint: CHF exacerbation Subjective: No new changes, Improving, Other (Shortness of breath improved Still has swelling in the legs) Review of Systems 10-point ROS is otherwise unremarkable Physical Examination - Vital Signs Temperature: 96.0 F Blood Pressure: 124/79 Pulse: 54 Respirations: 18 Pulse Ox (%): 95 - Physical Exam General: Alert, In no apparent distress, Oriented x3 HEENT: Atraumatic, Normocephalic Neck: Supple Respiratory: Clear to auscultation bilaterally, Normal air movement Cardiovascular: Regular rate/rhythm, Normal S1 S2, Edema Capillary refill: <2 Seconds Gastrointestinal: Soft and benign, W/out hepatosplenomegaly Musculoskeletal: Swelling, Erythema, Tenderness Integumentary: No warmth Neurological: Normal speech, Normal strength at 5/5 x4 extr Lymphatics: No axilla or inguinal lymphadenopathy Assessment & Plan - Problems (Diagnosis) (1) Acute exacerbation of CHF (congestive heart failure) Onset Date: 02/04/17 Current Visit: No Status: Acute (2) Anasarca Onset Date: 10/03/17 Current Visit: No Status: Acute (3) Anemia Current Visit: No Status: Acute Physician Review: Patient Assessed, Agree with Above Assessment and Plan Physician Review Additional Text: Acute on chronic diastolic congestive heart failure with volume overload, anasarca Diabetes mellitus type 2-insulin dependent CKD stage 4 COPD Hypertension Hyperlipidemia Plan Acute on chronic diastolic congestive heart failure with volume overload, anasarca: Continue with IV diuresis Appreciate help from Cardiology and nephrology on Bumex , metolazone stress test done - inferior L ventricle infarction noted, unchanged; h/o [place] s/p CABG x4; EF: ~33% on stress test Last echocardiogram less than 1 year ago shows ejection fraction of 66%. slowly improving, comfortable at rest, but ESPITIA still with significant anasarca unfortunately patient does not qualify for SNF/LTAC due to insurance Appreciate help from the cardiology, recommended to continue diuretics Diabetes mellitus type 2-insulin dependent: SSI, qACHS accu-cheks ARTURO on CKD stage 4: Avoid nephrotoxic agents (NSAIDs, contrast) Will continue diuresis, nephrology consulted slowly improving, has significant volume overload / anasarca COPD: Medications as needed for COPD. Hypertension: continue patient's home hydralazine, carvedilol Lower extremity wounds Wound culture positive for Providencia and enterococcus ID consulted, recommended zosyn + ceftaz x 6 weeks PICC placed 11/23/19 Continue antibiotics and monitor CBC BMP daily Hyperlipidemia: continue patient's home statin Disposition : Continue aggressive diuresis PICC placed 11/22 for 6 weeks of Abx DC to Home with Home health soon Time Spent Managing Pts Care (In Minutes): 42
[2019-11-28] MEDS: CALCITROL 0.25 MCG CAP PO SCH (13:31)
[2019-11-28] MEDS: COLLAGENASE 30 GM OINTMENT TOP SCH (17:30)
[2019-11-28] MEDS: ATORVASTATIN 40 MG TAB PO SCH (21:42)
--- NOTE | 2019-11-28 22:45 | PN ---
Date of Progress Note: 11/28/2019 Chief Complaint: Acute on chronic kidney injury, cardiorenal syndrome, congestive heart failure exac erbation, fluid overload. Subjective: The patient is undergoing treatment with diuretics. The patient has chronic kidney dise ase stage 4, diabetic kidney disease, hypertensive heart and kidney disease. She is a former smoker. Review of Systems: Denies chest pain or palpitation. Physical Examination: Lungs: Diminished breath sounds at bases. Heart: S1, S2. Abdomen: Soft, benign. Extremities: Edema present in both legs. Dressing in place. Impression And Plan: 1.Chronic kidney disease stage 4 with nephrotic range proteinuria. Serum creatinine level is stabil izing, plateauing. Continue diuretic including Bumex and metolazone. Monitor electrolytes and plan replacement for potassium as needed. 2.Hypertension. Blood pressure is elevated. Dose was adjusted for blood pressure medication. 3.Continue low-sodium diet. 4.Lower extremity edema. Diabetic foot care per primary team. JONNY/CELESTINE Voice ID: [id number] Report ID: [id number]
[2019-11-29] MEDS: PIPER/TAZO/NS 2.25gm 2.25 GM/50 ML BAG IVPB SCH ×3 (00:57→16:36)
[2019-11-29] MEDS: CODEINE 30MG/APAP 300MG TAB PO PRN ×3 (03:10→20:12)
[2019-11-29] MEDS: LEVOTHYROXINE SOD 0.088 MG TAB PO SCH (05:33)
[2019-11-29] MEDS: INSULIN -REGULAR HUMAN 50 UNIT/0.5 ML ML SQ SCH ×4 (07:30→23:15)
[2019-11-29 07:52] LABS: Hematocrit 28.7 % (36.0-45.0); MPV 7.8 fL (7.6-11.3)
[2019-11-29 08:15] LABS: Potassium 3.8 mmol/L (3.5-5.1)
[2019-11-29] MEDS: HYDRALAZINE HCL 25 MG TABLET PO SCH ×3 (10:09→20:12)
[2019-11-29] MEDS: SERTRALINE HCL 50 MG TAB PO SCH (10:09)
[2019-11-29] MEDS: CLOPIDOGREL 75 MG TABLET PO SCH (10:10)
[2019-11-29] MEDS: BUPROPION HCL XL 150 MG TAB PO SCH (10:10)
[2019-11-29] MEDS: METOLAZONE 5 MG TABLET PO SCH ×2 (10:10→20:09)
[2019-11-29] MEDS: carvediloL 12.5 MG TAB PO SCH (10:11)
[2019-11-29] MEDS: ASPIRIN 81 MG CHEWABLE TABLET PO SCH (10:11)
[2019-11-29] MEDS: GABAPENTIN 300 MG CAP PO SCH ×2 (10:11→20:09)
[2019-11-29] MEDS: CEFTAZIDIME 1 GM in NA CHLORIDE 0.9% 50 ML IV SCH ×2 (10:12→20:09)
[2019-11-29] MEDS: JUVEN PACKET PO SCH ×2 (10:19→20:17)
--- NOTE | 2019-11-29 13:59 | P.PN ---
Subjective Date of Service: 11/29/19 [facility] Provider: [facility] Chief Complaint: CHF exacerbation Subjective: Improving reports abdominal swelling is down, breathing more comfortably, legs still hurt and are swollen Review of Systems 10-point ROS is otherwise unremarkable Physical Examination - Vital Signs Temperature: 96.7 F Blood Pressure: 152/62 Pulse: 54 Respirations: 16 Pulse Ox (%): 100 - Physical Exam General: Alert, In no apparent distress HEENT: Atraumatic, PERRLA, EOMI Neck: Supple Respiratory: Normal air movement, Diminished Cardiovascular: Edema (up to abdomen) Gastrointestinal: Normal bowel sounds, Soft and benign, Non-distended, No tenderness Musculoskeletal: Tenderness (b/l lower legs) Integumentary: Other (b/l lower legs wrapped in BLAYNE bandages) Neurological: Normal speech, Normal affect Assessment & Plan Physician Review Additional Text: Acute on chronic diastolic congestive heart failure with volume overload, anasarca Diabetes mellitus type 2-insulin dependent CKD stage 4 COPD Hypertension Hyperlipidemia Plan Acute on chronic diastolic congestive heart failure with volume overload, anasarca: Continue with IV diuresis Appreciate help from Cardiology and nephrology on Bumex drip , metolazone stress test done - inferior L ventricle infarction noted, unchanged; h/o [place] s/p CABG x4; EF: ~33% on stress test Last echocardiogram less than 1 year ago shows ejection fraction of 66%. slowly improving, comfortable at rest, but ESPITIA still with significant anasarca, but improving unfortunately patient does not qualify for SNF/LTAC due to insurance Diabetes mellitus type 2-insulin dependent: SSI, qACHS accu-cheks ARTURO on CKD stage 4: Avoid nephrotoxic agents (NSAIDs, contrast) Will continue diuresis, nephrology consulted slowly improving, has significant volume overload / anasarca COPD: Medications as needed for COPD. Hypertension: continue patient's home hydralazine, carvedilol Lower extremity wounds Wound culture positive for Providencia and enterococcus ID consulted, recommended zosyn + ceftaz x 6 weeks PICC placed 11/23/19 Continue antibiotics and monitor CBC BMP daily Hyperlipidemia: continue patient's home statin Disposition : Continue aggressive diuresis PICC placed 11/22 for 6 weeks of Abx DC to Home with Home health soon, possibly tomorrow Time Spent Managing Pts Care (In Minutes): 35
--- NOTE | 2019-11-29 16:18 | P.PN ---
Date of Service: 11/29/19 Subjective: Patient is a 64 year old female with pmh of chronic diastolic congestive heart failure who presents with shortness of breath and swelling to bilateral lower extremities. Patient found to have wounds on left foot which I have been consulted for. Reports wounds to left foot for a few weeks. Patient follows up at the wound healing center weekly. Patient sitting upright on the side of the bed, no acute distress. Plans for home with home health for IV antibiotics and wound management Objective: Temp Pulse Resp BP Pulse Ox 96.7 F L 54 16 152/62 H 100 11/29/19 13:59 11/29/19 13:59 11/29/19 13:59 11/29/19 13:59 11/29/19 13:59 Labs: Na 138, K 3.8, BUN 69, Creat 2.41, albumin 1.9, WBC 5.4, Hgb 9.0, Hct 28.7 Left foot xray 11/21: EXAM DESCRIPTION: RAD - Foot Left 2 View - 11/22/2019 8:50 pm CLINICAL HISTORY: Left Foot pain FINDINGS: No fracture or dislocation is seen. . Lateral soft tissue ulceration Lucency is present within the fifth metatarsal head and base of fifth proximal phalanx probably osteomyelitis ROS: General: Awake alert, oriented CV: S1,S2 RESP: Diminished breath sounds Extremities: edema and weeping to BLLE Skin: Left lateral foot with superior and inferior DFU, wound beds with granulation tissue and sanguineous drainage. Assessment and plan: Leukocytosis resolved Left foot superior and inferior diabetic foot ulcers (DFU), continue santyl and alginate daily Inferior DFU probing to bone, Xray suggestive of osteomyelitis Zosyn day 9, Ceftazidime day 7, continue for total of 6 weeks Diabetes mellitus, monitor glycemic control Protein calorie malnourished Will continue to monitor Patient discussed with
[2019-11-29] MEDS: NA CHLORIDE 0.9% IV SCH (16:33)
[2019-11-29] MEDS: BUMETANIDE IV SCH (16:33)
[2019-11-29] MEDS: ATORVASTATIN 40 MG TAB PO SCH (20:09)
[2019-11-29] MEDS: ENSURE HIGH PROTEIN 237 ML CAN PO SCH (20:17)
--- NOTE | 2019-11-30 00:59 | PN ---
Date of Progress Note: 11/29/2019 Chief Complaint: Chronic kidney disease stage 4, CHF exacerbation, fluid overload, anasarca. Subjective: The patient has cardiorenal syndrome and CHF exacerbation. She is on IV diuretics. Review of Systems: Denies PND or orthopnea. Physical Examination: Lungs: Diminished breath sounds at bases. Heart: S1, S2. Abdomen: Soft, benign. Extremities: Dressing in place. Impression And Plan: 1.Chronic kidney disease stage 4 with nephrotic range proteinuria. Serum creatinine level is stabil izing. Continue Bumex and metolazone. 2.Hypertension. Blood pressure is elevated and adjust medication accordingly. 3.Continue low-sodium diet. 4.Lower extremity edema. Diabetic foot care per primary team. JONNY/CELESTINE Voice ID: [id number] Report ID: [id number]
[2019-11-30] MEDS: PIPER/TAZO/NS 2.25gm 2.25 GM/50 ML BAG IVPB SCH ×3 (01:48→16:06)
[2019-11-30] MEDS: COLLAGENASE 30 GM OINTMENT TOP SCH ×2 (01:49→09:00)
[2019-11-30 05:17] LABS: RBC Red Blood Cell Count 3.21 M/uL (3.86-4.86)
[2019-11-30 05:28] LABS: Potassium 4.1 mmol/L (3.5-5.1)
[2019-11-30] MEDS: NA CHLORIDE 0.9% IV SCH (06:08)
[2019-11-30] MEDS: BUMETANIDE IV SCH (06:08)
[2019-11-30] MEDS: LEVOTHYROXINE SOD 0.088 MG TAB PO SCH (06:08)
[2019-11-30] MEDS: CODEINE 30MG/APAP 300MG TAB PO PRN ×2 (06:16→16:17)
[2019-11-30] MEDS: INSULIN -REGULAR HUMAN 50 UNIT/0.5 ML ML SQ SCH ×4 (07:30→21:00)
[2019-11-30] MEDS ORDERED: CEFTAZIDIME 1 GM VIAL IV SCH (09:00)
[2019-11-30] MEDS: ASPIRIN 81 MG CHEWABLE TABLET PO SCH (09:07)
[2019-11-30] MEDS: CLOPIDOGREL 75 MG TABLET PO SCH (09:07)
[2019-11-30] MEDS: SERTRALINE HCL 50 MG TAB PO SCH (09:07)
[2019-11-30] MEDS: HYDRALAZINE HCL 25 MG TABLET PO SCH ×3 (09:08→21:07)
[2019-11-30] MEDS: GABAPENTIN 300 MG CAP PO SCH (09:08)
[2019-11-30] MEDS: carvediloL 12.5 MG TAB PO SCH (09:08)
[2019-11-30] MEDS: CEFTAZIDIME 1 GM in NA CHLORIDE 0.9% 50 ML IV SCH (09:09)
[2019-11-30] MEDS: JUVEN PACKET PO SCH ×2 (09:41→21:09)
[2019-11-30] MEDS: BUPROPION HCL XL 150 MG TAB PO SCH (09:41)
[2019-11-30] MEDS: ENSURE HIGH PROTEIN 237 ML CAN PO SCH ×2 (09:41→21:09)
[2019-11-30] MEDS: METOLAZONE 5 MG TABLET PO SCH ×2 (09:42→21:05)
--- NOTE | 2019-11-30 11:16 | RAD REPORT ---
EXAM DESCRIPTION: RAD - Chest Single View - 11/30/2019 11:04 am CLINICAL HISTORY: COPD COMPARISON: Portable November 22 TECHNIQUE: AP portable chest image was obtained 11/30/2019 11:04 am . FINDINGS: Large right pleural effusion is present increased from comparison. Right base infiltrate a nd/ or atelectasis have worsened. Left lung field and upper right lung field are stable. Enlarged car diac silhouette remains. Upper lobe vasculature is increased slightly from comparison. Sternotomy wir es are in place. No pneumothorax. No acute bony abnormality seen. No acute aortic findings suspected. IMPRESSION: Worsening right pleural effusion with progressive infiltrate and/ or atelectasis in the right base.
--- NOTE | 2019-11-30 11:19 | P.PN ---
Subjective Date of Service: 11/30/19 [facility] Provider: [facility] Chief Complaint: CHF exacerbation Subjective: Improving Review of Systems 10-point ROS is otherwise unremarkable Musculoskeletal: Leg Pain Physical Examination - Vital Signs Temperature: 96.9 F Blood Pressure: 167/75 Pulse: 53 Respirations: 16 Pulse Ox (%): 95 - Physical Exam General: Alert, In no apparent distress HEENT: Mucous membr. moist/pink Neck: No LAD Respiratory: Clear to auscultation bilaterally, Normal air movement Cardiovascular: Regular rate/rhythm, Normal S1 S2, Edema (up to abdomen) Gastrointestinal: Normal bowel sounds, No tenderness Musculoskeletal: Tenderness (b/l lower legs) Neurological: Normal speech, Normal affect Assessment & Plan Physician Review Additional Text: Acute on chronic diastolic congestive heart failure with volume overload, anasarca Diabetes mellitus type 2-insulin dependent CKD stage 4 COPD Hypertension Hyperlipidemia Plan Acute on chronic diastolic congestive heart failure with volume overload, anasarca: Continue with IV diuresis - switch from Bumex drip to Bumex scheduled Appreciate help from Cardiology and nephrology stress test done - inferior L ventricle infarction noted, unchanged; h/o [place] s/p CABG x4; EF: ~33% on stress test Last echocardiogram less than 1 year ago shows ejection fraction of 66%. slowly improving, comfortable at rest, but ESPITIA persists still with significant anasarca, but improving unfortunately patient does not qualify for SNF/LTAC due to insurance Home health care is being set up Diabetes mellitus type 2-insulin dependent: SSI, qACHS accu-cheks ARTURO on CKD stage 4: Avoid nephrotoxic agents (NSAIDs, contrast) Will continue diuresis as noted above, nephrology consulted slowly improving, has significant volume overload / anasarca COPD: Medications as needed for COPD. Hypertension: continue patient's home hydralazine, carvedilol Lower extremity wounds Wound culture positive for Providencia and enterococcus ID consulted, recommended zosyn + ceftaz x 6 weeks total PICC placed 11/23/19 Continue antibiotics and monitor CBC BMP daily Hyperlipidemia: continue patient's home statin Disposition : Continue aggressive diuresis PICC placed 11/22 for 6 weeks of Abx DC to Home with Home health soon, likely in 3-4 days Time Spent Managing Pts Care (In Minutes): 30
[2019-11-30] MEDS: CALCITROL 0.25 MCG CAP PO SCH (13:49)
[2019-11-30] MEDS: BUMETANIDE 1 MG/4 ML VIAL IV SCH ×2 (13:50→21:07)
--- NOTE | 2019-11-30 14:00 | PN ---
Date of Progress Note: 11/30/2019 Subjective: The patient was admitted with cellulitis, anasarca. The patient was started on Lasix drip, then switched to Bumex drip. The patient achieving good urine output with negative balance consecutively. The patient reached to dry weight down to 199, lost 15 pounds, currently 205, gained back 6 pounds. Chest x-ray; still has congestion, has right-sided clear effusion, but compared to chest x-ray before has been significant improvement on the duration of fluid. Physical Examination: Vital Signs: Blood pressure 167/75, pulse of 53, afebrile. The patient had urine output of 1800, negative of 300. Chest: Decreased air entry in right base. Crackles bilateral. Heart: S1, S2. Systolic murmur. Abdomen: Soft, nontender. Extremities: +3 edema. Compression dressing on both legs. Laboratory Data: WBC 9.6, H and H 8.8/28, platelets 120. Sodium 139, potassium 4.1, bicarb 32, BUN 72, creatinine 2.5, calcium 8.1. TSH 45, PTH 229, iron saturation of 11, ferritin of 56. Current Medications: The patient on its include; 1. Zosyn. 2. Ceftazidime. 3. Aspirin. 4. Plavix. 5. IV iron. 6. Atorvastatin. 7. Carvedilol 12.5. 8. Hydralazine 25 t.i.d. 9. Gabapentin. 10. Zoloft. 11. Bumex drip. 12. Metolazone 5 b.i.d. 13. Insulin. 14. Levothyroxine 88 mcg. Assessment And Plan: 1. Acute kidney injury on chronic kidney disease, over volume secondary to cardiorenal with anasarca. Blood pressure has been stable. I am going to go ahead and change the Bumex drip to Bumex IV and discharge planning and we will continue to monitor, plan to continue on this regimen for 24-48 hours. After that, we will switch to oral. The patient continues to have good urine output. At that time, the patient may be able to be discharged on the oral and we will follow up. 2. Continue current metolazone. 3. Anasarca, multifactorial, secondary to hypothyroidism, cardiorenal. I am going to increase the Bumex as above and we will follow up the patient. 4. Iron deficiency anemia. Continue IV iron. 5. Peripheral edema, multifactorial, secondary to anasarca as above. Questionable if it is secondary to the gabapentin. I am going to decrease the gabapentin to 200. Given the hypothyroidism, I am going to increase her levothyroxine to 112 mcg and we will follow up with Wound Care. 6. Cellulitis, multi-organism. She has Enterobacter sensitive to meropenem, resistant to penicillin, sensitive to cephalosporin, and she has also sensitive to Bactrim and Zosyn. I am going to continue current antibiotic. We will follow up with ID. 7. Congestive heart failure, diastolic dysfunction as above. time spent for face to face care , placing order and dicussing with staff, other weight loss consultant and patient/ patient family 35 min GAMA Voice ID: [id number] Report ID: [id number] MTDDannielle
[2019-11-30] MEDS: IRON SUCROSE 200 MG in NA CHLORIDE 0.9% 250 ML IV SCH (15:05)
--- NOTE | 2019-11-30 16:02 | P.PN ---
Date of Service: 11/30/19 Subjective: Patient is a 64 year old female with pmh of chronic diastolic congestive heart failure who presents with shortness of breath and swelling to bilateral lower extremities. Patient found to have wounds on left foot which I have been consulted for. Reports wounds to left foot for a few weeks. Patient follows up at the wound healing center weekly. Patient sitting upright on the side of the bed, no acute distress. Plans for home with home health for IV antibiotics and wound management Objective: Temp Pulse Resp BP Pulse Ox 96.8 F 57 18 132/70 100 11/30/19 12:00 11/30/19 12:00 11/30/19 12:00 11/30/19 12:00 11/30/19 12:00 Labs: Na 139, K 4.1, BUN 72, Creat 2.54, albumin 1.9, WBC 9.6, Hgb 8.8, Hct 28.0 Left foot xray 11/21: EXAM DESCRIPTION: RAD - Foot Left 2 View - 11/22/2019 8:50 pm CLINICAL HISTORY: Left Foot pain FINDINGS: No fracture or dislocation is seen. . Lateral soft tissue ulceration Lucency is present within the fifth metatarsal head and base of fifth proximal phalanx probably osteomyelitis ROS: General: Awake alert, oriented CV: S1,S2 RESP: Diminished breath sounds Extremities: edema and weeping to BLLE Skin: Left lateral foot with superior and inferior DFU, wound beds with granulation tissue and sanguineous drainage. Assessment and plan: Leukocytosis resolved Left foot superior and inferior diabetic foot ulcers (DFU), continue santyl and alginate daily Inferior DFU probing to bone, Xray suggestive of osteomyelitis Zosyn day 10, Ceftazidime day 8, continue for total of 6 weeks Diabetes mellitus, monitor glycemic control Protein calorie malnourished Will continue to monitor Patient discussed with
[2019-11-30] MEDS: GABAPENTIN 100 MG CAP PO SCH (21:06)
[2019-11-30] MEDS: ATORVASTATIN 40 MG TAB PO SCH (21:06)
[2019-12-01] MEDS: HYDRALAZINE HCL 20 MG/ML VIAL IV PRN (00:37)
[2019-12-01] MEDS: PIPER/TAZO/NS 2.25gm 2.25 GM/50 ML BAG IVPB SCH ×3 (00:38→16:37)
[2019-12-01] MEDS: CODEINE 30MG/APAP 300MG TAB PO PRN ×3 (01:38→21:38)
[2019-12-01 05:24] LABS: Hematocrit 26.6 % (36.0-45.0); MPV 8.2 fL (7.6-11.3); RBC Red Blood Cell Count 3.07 M/uL (3.86-4.86)
[2019-12-01 06:27] VITALS: BMI 32.8
[2019-12-01] MEDS ORDERED: LEVOTHYROXINE SOD 0.112 MG TAB PO SCH (06:30)
[2019-12-01] MEDS: INSULIN -REGULAR HUMAN 50 UNIT/0.5 ML ML SQ SCH ×4 (07:30→21:30)
[2019-12-01] MEDS: ENSURE HIGH PROTEIN 237 ML CAN PO SCH ×2 (09:00→21:31)
[2019-12-01] MEDS: carvediloL 12.5 MG TAB PO SCH (09:00)
[2019-12-01] MEDS: COLLAGENASE 30 GM OINTMENT TOP SCH (09:00)
[2019-12-01] MEDS: CEFTAZIDIME 1 GM in NA CHLORIDE 0.9% 50 ML IV SCH (09:00)
[2019-12-01] MEDS: BUMETANIDE 1 MG/4 ML VIAL IV SCH (09:01)
[2019-12-01] MEDS: SERTRALINE HCL 50 MG TAB PO SCH (09:01)
[2019-12-01] MEDS: BUPROPION HCL XL 150 MG TAB PO SCH (09:02)
[2019-12-01] MEDS: METOLAZONE 5 MG TABLET PO SCH ×2 (09:02→21:29)
[2019-12-01] MEDS: ASPIRIN 81 MG CHEWABLE TABLET PO SCH (09:02)
[2019-12-01] MEDS: HYDRALAZINE HCL 25 MG TABLET PO SCH ×3 (09:02→21:30)
[2019-12-01] MEDS: CLOPIDOGREL 75 MG TABLET PO SCH (09:02)
[2019-12-01] MEDS: GABAPENTIN 100 MG CAP PO SCH ×2 (09:02→21:30)
[2019-12-01] MEDS: JUVEN PACKET PO SCH ×2 (09:03→21:00)
[2019-12-01] MEDS ORDERED: FENTANYL 50 MCG/PATCH TD SCH (11:45)
[2019-12-01] MEDS: BUMETANIDE 1 MG TABLET PO SCH ×2 (13:51→21:29)
--- NOTE | 2019-12-01 14:04 | PN ---
Date of Progress Note: 12/01/2019 Subjective: The patient was admitted with anasarca, hypothyroidism, cardiorenal. The patient was on Lasix drip and switched to Bumex drip, and the patient had good urine output. Anasarca started to subside. Had bilateral wounds in the leg. Physical Examination: Vital Signs: Blood pressure 146/67, pulse of 59. The patient had urine output of 2200. The patient lost 1 kg from yesterday. Chest: Crackles, bilateral base. Heart: S1, S2. Systolic murmur. Abdomen: Soft, nontender. Extremities: +3 edema. Compression dressing on both legs. Neuro: Alert and oriented x3. Nonfocal. Laboratory Data: WBC 8.6, H and H 8.3/26.6, platelets of 112. Sodium 138, potassium 4, bicarb 33, BUN 78, creatinine trending down to 0.4, calcium 8.3. Current Medications: The patient on its include; 1. Plavix. 2. IV iron. 3. Ceftazidime. 4. Zosyn. 5. Aspirin. 6. Atorvastatin. 7. Carvedilol 12.5 b.i.d. 8. Hydralazine 25 t.i.d. 9. Gabapentin. We decreased it yesterday to 200 b.i.d. 10. Zoloft. 11. Bumex 2 mg IV t.i.d. 12. Ensure. 13. Metolazone 5 mg b.i.d. 14. Levothyroxine has been increased yesterday to 112 mcg. 15. Calcitriol. Assessment And Plan: 1. Acute kidney injury on advanced chronic kidney disease secondary to cardiorenal, still on the over volume side, response to current diuresis dose. I am going to go ahead and change Bumex to oral and we will maintain the patient. 2. Hypertension. We will try to utilize blood pressure for more diuresis. 3. Anasarca, multifactorial secondary to cardiorenal/hypothyroidism/venous stasis. Continue current diuresis. We just increased the levothyroxine and we will monitor on fluid restriction. 4. Wound infection. Continue wound care. 5. Congestive heart failure, diastolic, as above. time spent discussing the case with (the staff and other healthcare economics consultant and the patient) face to face with the patient and reviewing clinical data and placing order 35 min MA/MODL Voice ID: [id number] Report ID: [id number] MTDD
--- NOTE | 2019-12-01 14:40 | P.PN ---
Date of Service: 12/01/19 Subjective: Patient is a 64 year old female with pmh of chronic diastolic congestive heart failure who presents with shortness of breath and swelling to bilateral lower extremities. Patient found to have wounds on left foot which I have been consulted for. Reports wounds to left foot for a few weeks. Patient follows up at the wound healing center weekly. Patient sitting upright on the side of the bed, no acute distress. Plans for home with home health for IV antibiotics and wound management. no new changes Objective: Temp Pulse Resp BP Pulse Ox 97.1 F 60 18 135/62 98 12/01/19 12:00 12/01/19 13:51 12/01/19 13:50 12/01/19 13:51 12/01/19 13:50 Labs: Na 138, K 4.0, BUN 78, Creat 2.44, albumin 1.9, WBC 8.6, Hgb 8.3, Hct 26.6 Left foot xray 11/21: EXAM DESCRIPTION: RAD - Foot Left 2 View - 11/22/2019 8:50 pm CLINICAL HISTORY: Left Foot pain FINDINGS: No fracture or dislocation is seen. . Lateral soft tissue ulceration Lucency is present within the fifth metatarsal head and base of fifth proximal phalanx probably osteomyelitis ROS: General: Awake alert, oriented CV: S1,S2 RESP: Diminished breath sounds Extremities: edema and weeping to BLLE Skin: Left lateral foot with superior and inferior DFU, dressing CDI Assessment and plan: Leukocytosis resolved Left foot superior and inferior diabetic foot ulcers (DFU), continue santyl and alginate daily Inferior DFU probing to bone, Xray suggestive of osteomyelitis Zosyn day 111, Ceftazidime day 9, continue for total of 6 weeks Diabetes mellitus, monitor glycemic control Protein calorie malnourished Will continue to monitor Patient discussed with
--- NOTE | 2019-12-01 17:03 | P.PN ---
Subjective Date of Service: 12/01/19 [facility] Provider: [facility] Chief Complaint: CHF exacerbation Subjective: Improving (Continues with lower extremity swelling) Review of Systems 10-point ROS is otherwise unremarkable Physical Examination - Vital Signs Temperature: 97.1 F Blood Pressure: 135/62 Pulse: 60 Respirations: 18 Pulse Ox (%): 98 - Physical Exam General: Alert, In no apparent distress HEENT: PERRLA, EOMI Neck: Supple, JVD not distended Respiratory: Clear to auscultation bilaterally, Normal air movement Cardiovascular: Regular rate/rhythm, Normal S1 S2 Gastrointestinal: Soft and benign, Non-distended, Ascites Musculoskeletal: Tenderness (Lower extremities) Integumentary: Skin lesion (Left lateral foot with 2 ulcerations approximately 3 x 3.5 cm and 2 x 4 cm, left calf with shallow small ulceration. No surrounding erythema) Neurological: Normal speech, Normal affect Assessment & Plan Physician Review Additional Text: Acute on chronic diastolic congestive heart failure with volume overload, anasarca Diabetes mellitus type 2-insulin dependent CKD stage 4 COPD Hypertension Hyperlipidemia Plan Acute on chronic diastolic congestive heart failure with volume overload, anasarca: Continue with IV diuresis - switch from Bumex drip to Bumex scheduled Appreciate help from Cardiology and nephrology stress test done - inferior L ventricle infarction noted, unchanged; h/o NM s/p CABG x4; EF: ~33% on stress test Last echocardiogram less than 1 year ago shows ejection fraction of 66%. slowly improving, comfortable at rest, but ESPITIA persists still with moderate anasarca, but improving unfortunately patient does not qualify for SNF/LTAC due to insurance Home health care is being set up Transition to p.o.. Bumex, possible discharge home tomorrow if still net negative Diabetes mellitus type 2-insulin dependent: SSI, qACHS accu-cheks ARTURO on CKD stage 4: Avoid nephrotoxic agents (NSAIDs, contrast) Will continue diuresis as noted above, nephrology consulted slowly improving, has moderate volume overload / anasarca COPD: Medications as needed for COPD. Hypertension: continue patient's home hydralazine, carvedilol Lower extremity wounds Wound culture positive for Providencia and enterococcus ID consulted, recommended zosyn + ceftaz x 6 weeks total PICC placed 11/23/19 Continue antibiotics and monitor CBC BMP daily Hyperlipidemia: continue patient's home statin Disposition : Continue aggressive diuresis PICC placed 11/22 for 6 weeks of Abx DC to Home with Home health soon, likely in 1-2 days Time Spent Managing Pts Care (In Minutes): 35
[2019-12-01] MEDS: ATORVASTATIN 40 MG TAB PO SCH (21:30)
[2019-12-02] MEDS: PIPER/TAZO/NS 2.25gm 2.25 GM/50 ML BAG IVPB SCH ×3 (00:27→16:42)
[2019-12-02] MEDS: CODEINE 30MG/APAP 300MG TAB PO PRN ×2 (05:24→14:09)
[2019-12-02 05:57] LABS: Hematocrit 28.1 % (36.0-45.0); MPV 8.2 fL (7.6-11.3); RBC Red Blood Cell Count 3.25 M/uL (3.86-4.86)
[2019-12-02 06:16] LABS: Potassium 3.7 mmol/L (3.5-5.1)
[2019-12-02] MEDS: CEFTAZIDIME 1 GM in NA CHLORIDE 0.9% 50 ML IV SCH (09:43)
[2019-12-02] MEDS: BUPROPION HCL XL 150 MG TAB PO SCH (09:45)
[2019-12-02] MEDS: CLOPIDOGREL 75 MG TABLET PO SCH (09:45)
[2019-12-02] MEDS: carvediloL 12.5 MG TAB PO SCH (09:45)
[2019-12-02] MEDS: SERTRALINE HCL 50 MG TAB PO SCH (09:46)
[2019-12-02] MEDS: HYDRALAZINE HCL 25 MG TABLET PO SCH (09:47)
[2019-12-02] MEDS: ASPIRIN 81 MG CHEWABLE TABLET PO SCH (09:47)
[2019-12-02] MEDS: METOLAZONE 5 MG TABLET PO SCH (09:48)
[2019-12-02] MEDS: GABAPENTIN 100 MG CAP PO SCH (09:48)
[2019-12-02] MEDS: BUMETANIDE 1 MG TABLET PO SCH ×2 (09:48→14:08)
[2019-12-02] MEDS: INSULIN -REGULAR HUMAN 50 UNIT/0.5 ML ML SQ SCH ×3 (09:49→16:30)
[2019-12-02] MEDS: ENSURE HIGH PROTEIN 237 ML CAN PO SCH (09:50)
[2019-12-02] MEDS: JUVEN PACKET PO SCH (09:50)
[2019-12-02] MEDS ORDERED: POTASSIUM CL SA 10 MEQ TAB PO ONE (13:00)
[2019-12-02] MEDS ORDERED: HYDRALAZINE HCL 25 MG TABLET PO SCH (14:00)
[2019-12-02] MEDS: CALCITROL 0.25 MCG CAP PO SCH (14:08)
--- NOTE | 2019-12-02 14:09 | P.PN ---
Date of Service: 12/02/19 Subjective: Patient is a 64 year old female with pmh of chronic diastolic congestive heart failure who presents with shortness of breath and swelling to bilateral lower extremities. Patient found to have wounds on left foot which I have been consulted for. Reports wounds to left foot for a few weeks. Patient follows up at the wound healing center weekly. Patient lying in bed watching TV, no acute distress. Plans for home with home health for IV antibiotics and wound management. no new changes Objective: Temp Pulse Resp BP Pulse Ox 96.8 F 53 16 155/67 H 100 12/02/19 12:00 12/02/19 12:00 12/02/19 12:00 12/02/19 12:00 12/02/19 12:00 Labs: Na 136, K 3.7, BUN 79, Creat 2.45, albumin 1.9, WBC 6.4, Hgb 8.9, Hct 28.1 Left foot xray 11/21: EXAM DESCRIPTION: RAD - Foot Left 2 View - 11/22/2019 8:50 pm CLINICAL HISTORY: Left Foot pain FINDINGS: No fracture or dislocation is seen. . Lateral soft tissue ulceration Lucency is present within the fifth metatarsal head and base of fifth proximal phalanx probably osteomyelitis ROS: General: Awake alert, oriented CV: S1,S2 RESP: Diminished breath sounds Extremities: edema and weeping to BLLE Skin: Left lateral foot with superior DFU, wound bed necrotic tissue and slough. Inferior DFU, wound bed with slough Assessment and plan: Leukocytosis resolved Left foot superior and inferior diabetic foot ulcers (DFU), continue santyl and alginate daily Inferior DFU probing to bone, Xray suggestive of osteomyelitis Zosyn day 12, Ceftazidime day 10, continue for total of 6 weeks Diabetes mellitus, monitor glycemic control Protein calorie malnourished Will continue to monitor Patient discussed with
[2019-12-02] MEDS: COLLAGENASE 30 GM OINTMENT TOP SCH (14:10)
--- NOTE | 2019-12-02 14:57 | PN ---
Date of Progress Note: 12/02/2019 Subjective: The patient doing better, more ambulating. The patient was switched to oral Bumex yeste rday, tolerated well. The patient still has high blood pressure. Objective: Vital Signs: Blood pressure 191/84. Chest: Crackles on the base. Heart: S1 and S2. Systolic murmur. Abdomen: Soft, nontender. Extremities: +3 edema. Compression dressing on both leg. Left big toe amputation. Neurologic: Alert and oriented x3. No focal. Laboratory Data: Chest x-ray; cardiomegaly with congestion, suspect right pleural effusion. WBC 6.4 , H and H 8.9/28.1, platelets 113. Sodium 136, potassium 3.7, bicarb 35, BUN 79, creatinine 2.4 plat eau, GFR of 20, calcium 8.5. PTH 229. Current Medications: The patient on its include; 1.Ceftazidime. 2.Zosyn. 3.Plavix. 4.IV iron. 5.Atorvastatin. 6.Carvedilol 12.5 b.i.d. 7.Hydralazine 25 t.i.d. 8.Fentanyl. 9.Gabapentin 200 b.i.d. 10.Zoloft. 11.Bumex 2 mg t.i.d. 12.Ensure. 13.Metolazone 5 mg b.i.d. 14.Levothyroxine. Assessment/plan: 1.Acute kidney injury on chronic kidney disease secondary to cardiorenal. Still on the over volume side peripheral edema. Respiratory status has been stabilized. I going to continue current diuresis dose and we will monitor. The patient will be cleared from the renal standpoint to discharge. Foll ow up in 2 weeks with chemistry. 2.Hypertension, not controlled. Possible contribution with the pain. As yesterday, we decreased he r gabapentin and we placed her on fentanyl. I am going to continue current pain regimen. We will in crease her hydralazine to 50 t.i.d. Continue carvedilol. Continue utilize the blood pressure for mo re diuresis. 3.Anasarca, multifactorial secondary to hypothyroidism/cardiorenal. As above continue diuresis. Co ntinue levothyroxine. Keep tapering gabapentin as it can contribute to her anasarca and peripheral e daniela. 4.I am going to be hesitant to add any spironolactone currently giving her advanced kidney disease. 5.Hypokalemia. We will supplement. 6.Iron-deficiency anemia. Continue IV iron. 7.Hypothyroidism. As above. 8.Cellulitis both lower extremity, multi-organism. The patient been follow up with ID and the [facility] hospitalist. Continue current antibiotic dose appropriate. 9.Secondary hyperparathyroidism. PTH on the goal. Calcium stable. I do not see the need for vitam in D analog for the time being. Again, the patient cleared from the renal standpoint for discharge planning. Case discussed with Dr. Nettles, agreed on the plan. GAMA Voice ID: [id number] Report ID: [id number]
[2019-12-02 15:16] VITALS: O2SAT 99
[2019-12-02 16:52] VITALS: TEMP 96.2
[2019-12-02 18:00] VITALS: BP 150/75
--- NOTE | 2019-12-02 21:18 | P.DS ---
Admission Date: 11/19/19 Discharge Date: 12/05/19 [facility] Provider: [facility] Disposition: DC HOME/HOME HEALTH CARE Discharge Condition: FAIR Reason for Admission: CHF exacerbation Consultations: Cardiology - Dr. Raymond / Raquel Nephrology - Dr. Fernando Infectious Disease - Dr. Gaytan Problem list Acute on chronic diastolic congestive heart failure with volume overload, anasarca Diabetes mellitus type 2-insulin dependent ARTURO on CKD stage 4 COPD Osteomyelitis / lower extremity wounds Hypertension Hyperlipidemia h/o MT s/p CABG x4 Procedures: CXR (11/18/2019): Cardiomegaly with pulmonary edema pattern, bilateral pleural effusions Left foot x-ray (11/22/2019): Lucency is present within the 5th metatarsal head and base of 5th proximal phalanx probably osteomyelitis Nuclear stress test (11/23/2019): Moderate to large fixed perfusion defect involving the inferior LV myocardium extending to the apex consistent with infarction. No evidence of stress induced ischemia. Unchanged from prior exam. LVEF: 33% Brief History of Present Illness: 64-year-old female with medical history of chronic diastolic congestive heart failure, diabetes mellitus type 2, hypertension, hyperlipidemia presents emergency department for worsening shortness of breath and swelling of the lower extremities. Patient reports that she is compliant with her medications and fluid restriction. During her evaluation in the emergency department patient was found to have a significantly elevated BNP levels and a chest x-ray that does suggest volume overload. Patient also with significant pitting edema bilaterally in the lower extremities. ED provider wishes to admit patient for further evaluation and management. Hospital Course: Acute on chronic diastolic congestive heart failure with volume overload, anasarca BNP: 50,623 on admission, she was admitted for aggressive diuresis. Both cardiology and nephrology were consulted. Stress test was performed as noted above, with no significant change. She had significant anasarca and required IV Lasix/Bumex drip and metolazone for the majority of her hospitalization. Initially she was on a Lasix drip, was but was switched to be a Bumex drip and had more response. She was then transitioned to 2mg TID p.o.. Bumex, was noted to still maintain a negative fluid balance. The majority of her anasarca had resolved, but she did continue with bilateral lower extremity edema up to her lower abdomen. Unfortunately due to the patient's insurance, she did not qualify for SNF/LTAC, so she was discharged with home health. On day of discharge, she was breathing comfortably on home oxygen, was tolerating her diet, and reported feeling well to go home. She was instructed to follow up with nephrology for blood work in approximately 2 weeks On discharge, patient's pharmacy: Pharmacist stated insurance limited Bumex to 2 pills per day and could not fill 2mg TID. As a result, patient was discharged on 2 mg tablets BID (instead of TID). CKD stage 4: Nephrology was consulted, who assisted with aggressive IV diuresis. Patient did not require dialysis Osteomyelitis / Lower extremity wounds Patient with bilateral lower extremity wounds. The wound culture was obtained and positive for Providencia and enterococcus ID was consulted and recommended zosyn + ceftaz x 6 weeks total PICC placed 11/23/19 Hypothyroidism TSH was obtained on 11/24/19: 45, free T4: 0.45. She was started on levothyroxine. She is to follow up with her PCP HTN pt was hypertensive during her hospitalization and was started on PO hydralazine. DM2, Hyperlipidemia, COPD: Stable during hospitalization, patient was continued on her home meds. Vital Signs/Physical Exam: Temp Pulse Resp BP Pulse Ox 96.2 F L 55 16 150/75 H 100 12/02/19 16:00 12/02/19 16:00 12/02/19 16:00 12/02/19 17:00 12/02/19 16:00 General: Alert, In no apparent distress HEENT: PERRLA, EOMI, Sclerae nonicteric Neck: Supple, JVD not distended Respiratory: Clear to auscultation bilaterally, Normal air movement Cardiovascular: Regular rate/rhythm, Normal S1 S2, Edema (up to abdomen) Gastrointestinal: Normal bowel sounds, Soft and benign, Non-distended, No tenderness Musculoskeletal: Tenderness (Bilateral lower extremities) Integumentary: Skin lesion (Left lateral foot with 2 ulcerations approximately 3 x 3.5 cm and 2 x 4 cm, left calf with shallow small ulceration. No surrounding erythema) Neurological: Normal speech, Normal affect Laboratory Data at Discharge: WBC 6.4 K/uL (4.3-10.9) D 12/02/19 05:20 Hgb 8.9 g/dL (12.0-15.0) L 12/02/19 05:20 Hct 28.1 % (36.0-45.0) L 12/02/19 05:20 Plt Count 113 K/uL (152-406) L 12/02/19 05:20 PT 15.5 SECONDS (9.5-12.5) H 11/18/19 21:40 INR 1.32 11/18/19 21:40 Sodium 136 mmol/L (136-145) 12/02/19 05:20 Potassium 3.7 mmol/L (3.5-5.1) 12/02/19 05:20 BUN 79 mg/dL (7-18) H 12/02/19 05:20 Creatinine 2.45 mg/dL (0.55-1.3) H 12/02/19 05:20 Glucose 68 mg/dL (74-106) L 12/02/19 05:20 Phosphorus 3.4 mg/dL (2.5-4.9) 11/28/19 03:58 Magnesium 2.0 mg/dL (1.8-2.4) 11/27/19 05:00 Total Bilirubin 0.4 mg/dL (0.2-1.0) 11/24/19 03:38 AST 18 U/L (15-37) 11/24/19 03:38 ALT 16 U/L (12-78) 11/24/19 03:38 Alkaline Phosphatase 132 U/L (45-117) H 11/24/19 03:38 Troponin I 0.05 ng/mL (0.0-0.045) H 11/19/19 11:48 Home Medications: Aspirin Chewable [Aspirin Chewable*] 1 tab PO DAILY 11/19/19 Atorvastatin Calcium [Lipitor] 40 mg PO BEDTIME 11/19/19 Bupropion HCl [Wellbutrin] 1 tab PO DAILY 11/19/19 Clopidogrel Bisulfate [Plavix*] 75 mg PO DAILY 11/19/19 Codeine/APAP [Tylenol #3*] 1 tab PO Q6HP PRN 11/19/19 Collagenase [Santyl Ointment*] 1 raquel TOP DAILY 11/19/19 Fluticasone [Flovent Hfa 110*] 2 puff PO BID 11/19/19 Gabapentin 300 mg PO BID 11/19/19 Insulin Detemir [Levemir Flextouch] 10 units SQ BID 11/19/19 Sertraline [Zoloft*] 25 mg PO DAILY 11/19/19 carvediloL [Coreg*] 12.5 mg PO DAILY 11/19/19 Bumetanide [Bumex*] 2 mg PO TID 30 Days #180 tab 12/02/19 Ensure High Protein 237 ml PO BID 30 Days #60 can 12/02/19 Hydralazine [Apresoline*] 50 mg PO TID 30 Days #90 tab 12/02/19 Patrice [Patrice*] 1 pkt PO BID 30 Days #60 powd.pack 12/02/19 Levothyroxine [Synthroid*] 0.112 mg PO DAILYAC 30 Days #30 tab 12/02/19 metOLazone [Zaroxolyn*] 5 mg PO BID 30 Days #60 tab 12/02/19 New Medications: Hydralazine [Apresoline*] 50 mg PO TID 30 Days #90 tab Bumetanide [Bumex*] 2 mg PO TID 30 Days #180 tab Ensure High Protein 237 ml PO BID 30 Days #60 can Patrice [Patrice*] 1 pkt PO BID 30 Days #60 powd.pack Levothyroxine [Synthroid*] 0.112 mg PO DAILYAC 30 Days #30 tab metOLazone [Zaroxolyn*] 5 mg PO BID 30 Days #60 tab Patient Discharge Instructions: follow up with PCP within 1 week. follow up with Renal in 2 weeks with bloodwork Diet: Renal (Diabetic diet) Activity: Ad shira Followup: Sharri Fernando MD [ACTIVE - CAN ADMIT] - Time spent managing pt's care (in minutes): 55
== END 2019-12-02 18:05 | disposition home health service (06) | DRG 291 ==
LOC: ER 19:41 → ERHOLD 11-19 00:34 → 2ND 11-19 04:23
PROVIDERS: ADMIT Family Medicine; ATTEND Hospitalist
PROC: 02HV33Z Insertion of Infusion Device into Superior Vena Cava, Percutaneous Approach (ICD-10-PCS; 2019-11-23)
PROC: 30233N1 Transfusion of Nonautologous Red Blood Cells into Peripheral Vein, Percutaneous Approach (ICD-10-PCS; principal; 2019-11-25)
DX: I13.0 Hypertensive heart and chronic kidney disease with heart failure and stage 1 through stage 4 chronic kidney disease, or unspecified chronic kidney disease (principal); I50.33 Acute on chronic diastolic (congestive) heart failure; N18.4 Chronic kidney disease, stage 4 (severe); N17.9 Acute kidney failure, unspecified; E46 Unspecified protein-calorie malnutrition; Z16.11 Resistance to penicillins; L03.116 Cellulitis of left lower limb; L03.115 Cellulitis of right lower limb; N25.81 Secondary hyperparathyroidism of renal origin; M86.8X7 Other osteomyelitis, ankle and foot; E11.22 Type 2 diabetes mellitus with diabetic chronic kidney disease; E78.5 Hyperlipidemia, unspecified; D72.829 Elevated white blood cell count, unspecified; J44.9 Chronic obstructive pulmonary disease, unspecified; B96.89 Other specified bacterial agents as the cause of diseases classified elsewhere; D63.8 Anemia in other chronic diseases classified elsewhere; E03.9 Hypothyroidism, unspecified; E87.6 Hypokalemia; E83.42 Hypomagnesemia; I25.2 Old myocardial infarction; E11.69 Type 2 diabetes mellitus with other specified complication; D50.9 Iron deficiency anemia, unspecified; B95.2 Enterococcus as the cause of diseases classified elsewhere; I25.10 Atherosclerotic heart disease of native coronary artery without angina pectoris; E11.621 Type 2 diabetes mellitus with foot ulcer; L97.529 Non-pressure chronic ulcer of other part of left foot with unspecified severity; R79.89 Other specified abnormal findings of blood chemistry; Z95.1 Presence of aortocoronary bypass graft; Z90.710 Acquired absence of both cervix and uterus; Z90.49 Acquired absence of other specified parts of digestive tract; Z89.412 Acquired absence of left great toe; Z88.1 Allergy status to other antibiotic agents; Z88.5 Allergy status to narcotic agent; Z88.8 Allergy status to other drugs, medicaments and biological substances; Z91.09 Other allergy status, other than to drugs and biological substances; Z79.82 Long term (current) use of aspirin; Z79.4 Long term (current) use of insulin; Z79.02 Long term (current) use of antithrombotics/antiplatelets; Z79.899 Other long term (current) drug therapy; Z85.42 Personal history of malignant neoplasm of other parts of uterus; Z68.31 Body mass index [BMI] 31.0-31.9, adult; Z87.891 Personal history of nicotine dependence; Z20.828 Contact with and (suspected) exposure to other viral communicable diseases
CPT/HCPCS: 36415; 36569; 51702; 71045; 78452; 80048; 80053; 80069; 80076; 81003; 82570; 82607; 82728; 82746; 82947; 83540; 83735; 83880; 83970; 84156; 84439; 84443; 84466; 84484; 85014; 85018; 85025; 85027; 85610; 86850; 86900; 86901; 86902; 86922; 87070; 87077; 87186; 87205; 93005; 93017; 96374; 97110; 97116; 97161; 97530; 99212; 99285; A9500; J0360; J0713; J1644; J1815; J1940; J2020; J2405; J2543; J2785; J3475; J3590; J7050; P9016; U0003

== ENCOUNTER 2019-12-05 10:55 | Inpatient (IN) | payer MEDICAID ==
--- OUTSIDE RECORDS SUMMARY | 2019-12-05 10:56 | XMS REPORT | Clinical Summary ---
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 05/19/2017 [...] VACCINE (#1) 2019 Implants Implanted Type Area Pattern Molder Device Shelf Model / Identifier Expiration Serial / Date Lot Device Clsr Angio-Seal Vip 8fr [id number] - [id number] Cardiovascular N/A: [employer] EVELY[employer] 01/28/2018 [id number] / Implanted: Qty: 1 on 05/12/2017 by Sandra Gaytan MD Groin MED:CARDIAC / SURG [id number] Grft Eptfe-Heparin Rng [id number] - [id number] Graft/P atch Right: SUHAS MATHEW & 04/09/2021 [id number] / Implanted: Qty: 1 on 08/05/2017 by Mariela Ramriez MD Leg ASSC:MED PRDT [id number] / N/A Results Not on fileafter 12/04/2018 Insurance Payer Benefit Plan / Group Subscriber ID Type Phone A ddrisa [place] MED[place] MEDICAID [place] xxxxxxxxx Advance Directives For more information, please contact:[place] [phone] [place], [place] [phone] Code Status Date Activated Date Inactivated Comments [...]
--- OUTSIDE RECORDS SUMMARY | 2019-12-05 11:02 | XMS REPORT | Continuity of Care Document ---
:1955 Author Organization [facility] t Address 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 y y disorder, disorder, with with long-term long-term current current use of use of insulin insulin Smoker Smoker Disease Active [facility] - 00:[facility]: Medical 00 [place] Frequent Frequent Disease Active [facility] PVCs PVCs 2-12 [facility] - 00:[facility]: Medical 00 [place] Essential Essential Problem Active [facility] (primary) [...] acquired [facility] - lymphedema lymphedema Me [facility] Chronic Chronic Diagnosis Active [facility] [...] diastolic Luke s - congestive congestive Me [facility] heart heart l failure, failure, Outpat i NYHA class NYHA class en t 2 2 Clinics Chronic Chronic Problem Active [facility] obstructiv obstructiv Janna kes - e e Memoria pulmonary pulmonary l disease, disease, Outpat i unspecifie unspecifie en t d COPD d COPD Clinics 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 [facility] current current [facility] [...] with l hyperglyce hyperglyce Ou tpati cr [facility] ent Clinics 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2 [...] Analogue adverse 00:00: Medical s reaction 00 [place] s Vancomyc Adverse Active vomiting [facility] t in HCl Reaction [facility] ent Clinics Nitrogly Adverse Active vomiting [facility] t cerin Reaction [facility] ent [facility] Morphine Adverse Active headache, [facility] Sulfate Reaction breathing Luke s - [facility] Clindamy Adverse Active vomiting [facility] t riley HCl Reaction [facility] Family History Family Member Diagnosis Comments Start Date Stop Date Source Natural father COPD [facility] Natural father Cancer [facility] Natural father Hypertension [facility] Natural mother No Known Problem [facility] Natural sister Asthma [facility] Natural sister COPD [facility] Social History Social Habit Start Date Stop Date Quantity Comments Source Sex Assigned At [facility] Cigarettes smoked 2017-09-02 2017-09-02 [facility] - current (pack per 00:00:00 00:00:00 Medical Center day) - Reported Cigarette 2017-09-02 2017-09-02 [facility] - pack-years 00:00:00 00:00:00 [facility] Center History of tobacco 2017-05-12 Current smoker [facility] - use 00:00:00 [facility] Smoking Status Start Date Stop Date Source Former smoker 2017-09-02 00:00:00 2017-09-02 00:00:[address] [facility] [address] [facility] Medications Ordered [...] Inject [facility] detemir 3-04 0.05 mLs [facility] (LEVEMIR 00:00: (5 Units Medic al FLEXPEN) 00 total) [place] 100 unit/mL subcutaneo (3 mL) InPn usly every injection morning. pen needle, Yes Use as [facility] diabetic 29 3-04 directed Luke s - gauge Ndle 00:00: to inject Me dical 00 long and Center short acting insulin.. aspirin 81 Yes 81mg QD Take [address] MG EC 1-22 by mouth [facility] - tablet 20:09: daily. [facility] 35 [place] Trazodone Trazodone Yes Franki TAKE [address] HCl HCl Jas TABLET BY [facility] - MOUTH [facility]oria EVERYDAY l AT BEDTIME [facility] Isosorbide Isosorbide Yes Franki TAKE [address] [facility] Mononitrate Mononitrate Jas TABLET BY [facility] - ER ER MOUTH Memoria EVERY DAY l [facility] NIFEdipine NIFEdipine Yes Franki TAKE [address] [facility] ER ER Jas TABLET BY [facility] - MOUTH [facility] EVERY DAY l [facility]ics BuPROPion BuPROPion Yes Franki TAKE [address] HCl HCl Jas TABLET BY [facility] - MOUTH [facility] EVERY DAY l [facility] Acetaminoph Acetaminoph Yes Franki (Schedule [...] 00:00:00 measurement Medical Center (procedure) [code = 39936182] Future Scheduled [address] [facility] - Test 00:00:00 (procedure) [code = Medical Center 88783976] Future Scheduled [address] [address] [facility] - Test 00:00:00 [facility] cervix (procedure) [code = 799244308] Future Scheduled 1965 DIABETIC EYE EXAM [facility] - Test 00:00:00 [code = DIABETIC EYE Medical Center EXAM] Future Scheduled [address] [facility] - Test 00:00:00 examination Medical Center (regime/therapy) [code = 502132966] Future Scheduled 1965 Urine screening for [facility] - Test 00:00:00 protein (procedure) Medical Center [code = 597325122] Future Scheduled [address] [facility] - Test 00:00:00 2-64 YEARS AT RISK (1 Medica l Center of 1 - PPSV23) [code = PNEUMOCOCCAL VACCINE 2-64 YEARS AT RISK (1 of 1 - PPSV23)] Future Scheduled [address] [facility] - Test 00:00:00 malignant neoplasm of Medica l Center breast (procedure) [code = 116029739] Future Scheduled [address] [facility] - Test 00:00:00 [facility] colon (procedure) [code = 695879380] Encounters Start End Encounter Admission Attending Care Care Encounter Source Date/Time Date/Time Type Type Clinicians Facility Department ID 2018-11-17 2018-11-17 Outpatient Alison Wilson [id number] 11:30:00 11:30:[address] [facility] Medicine Outpati ent Clinics 2018-10-06 2018-10-06 Outpatient Alison Wilson [id number] 16:14:00 16:14:00 [facility] Medicine Medicine Outpati ent Clinics 2018-09-28 2018-09-28 Outpatient Alison Rosast [id number] [facility] 10:30:00 10:30:00 [facility] Medicine l Medicine [facility] medical [facility] ent Clinics Results Test Description Test Time Test Comments Results Result Comments Source POCT-GLUCOSE METER 2017-09-05 17:13:00 Test Item Value Reference Range Interpretation Comme nts POC-GLUCOSE METER (BEAKER) (test 220 mg/dL 70-110 H TESTED AT [facility] [address] [facility] = 1538) [facility] 7703 0 BASIC METABOLIC [id number] 15:47:00 Test Item Value Reference Range Interpretation [...] NOT APPLICABLE FOR DIALYSIS PATIEN TS. POCT-GLUCOSE [id number] 11:30:00 Test Item Value Reference Range Interpretation Comments POC-GLUCOSE METER 268 mg/dL 70-110 H [facility] ([employer]) (test code = JULIANO Osborne [facility] 1538) [address] POCT-GLUCOSE [id number] 07:08:00 Test Item Value Reference Range Interpretation Comments POC-GLUCOSE METER 208 mg/dL 70-110 H TESTED AT [facility] 6720 ([employer]) (test code = JULIANO Osborne [facility] 1538) [address] CALCIUM, [id number] 06:47:00 Test Item Value Reference Range Interpretation Comments CALCIUM IONIZED (BEAKER) (test 1.11 mmol/L 1.12-1.27 L code = 698) PH, BLOOD (BEAKER) (test code = 7.40 1810) BASIC METABOLIC [id number] 06:40:00 Test Item Value Reference Range Interpretation [...] S NOT APPLICABLE FOR DIALYSIS PATIEN TS. [id number] 06:33:00 Test Item Value Reference Range Interpretation Comments PHOSPHORUS (BEAKER) (test code = 5.1 mg/dL 2.3-4.7 H 604) [id number] 06:33:00 Test Item Value Reference Range Interpretation Comments MAGNESIUM (BEAKER) (test code = 2.0 mg/dL 1.6-2.6 627) LACTIC ACID, VENOUS, WHOLE [id number] 06:02:00 Test Item Value Reference Range Interpretation Comments LACTATE BLOOD VENOUS (2) (BEAKER) 0.8 mmol/L 0.5-2.2 (test code = 2872) Effective 08/02/2015: Units/Reference Range ChangeNew: 0.5-2.2 mmol/L Previous: 5-20 mg/dLCBC W/PLT COUNT & AUTO [id number] 05:54:00 Test Item Value Reference Range Interpretation [...] 417) IMMATURE GRANULOCYTES-RELATIVE 0 % 0-1 PERCENT ([facility]) (test code = 2801) POCT-GLUCOSE [id number] 21:30:00 Test Item Value Reference Range Interpretation Comments POC-GLUCOSE METER 248 mg/dL 70-110 H TESTED AT [facility] 67 ([facility]) (test code = JULIANO Osborne [facility] 1538) [address] RAD, [id number] 21:22:00Reason for exam:->fall, tailbone painFINAL REPORT RAD, [...] Talbot Verified Date/Time: 09/04/2017 21:22:03 Reading Location: [address] Reading Room POCT-GLUCOSE [id number] 17:37:00 Test Item Value Reference Range Interpretation Comments POC-GLUCOSE METER 222 mg/dL 70-110 H TESTED AT [facility] 6720 ([facility]) (test code = JULIANO Osborne [facility] 1538) [address] POCT-GLUCOSE [id number] 13:55:00 Test Item Value Reference Range Interpretation Comments POC-GLUCOSE METER 194 mg/dL 70-110 H TESTED AT [place] [address] ([facility]) (test code = JULIANO Osborne [facility] 1538) [address] POCT-GLUCOSE [id number] 12:34:00 Test Item Value Reference Range Interpretation Comments POC-GLUCOSE METER 229 mg/dL 70-110 H TESTED AT [facility] 6720 (BEAKER) (test code = JULIANO Osborne [place] 1538) [address] POCT-GLUCOSE [id number] 08:00:00 Test Item Value Reference Range Interpretation Comments POC-GLUCOSE METER 159 mg/dL 70-110 H TESTED AT [facility] 6720 (BEAKER) (test code = JULIANO Osborne [facility] 1538) [address] CALCIUM, [id number] 06:00:00 Test Item Value Reference Range Interpretation Comments CALCIUM IONIZED (BEAKER) (test 1.05 mmol/L 1.12-1.27 L code = 698) PH, BLOOD (BEAKER) (test code = 7.45 1810) [id number] 05:59:00 Test Item Value Reference Range Interpretation Comments PHOSPHORUS (BEAKER) (test code = 4.8 mg/dL 2.3-4.7 H 604) [id number] 05:59:00 Test Item Value Reference Range Interpretation Comments MAGNESIUM (BEAKER) (test code = 2.0 mg/dL 1.6-2.6 627) BASIC METABOLIC [id number] 05:59:00 Test Item Value Reference Range Interpretation [...] = 380) CBC W/PLT COUNT & AUTO [id number] 05:32:00 Test Item Value Reference Range Interpretation [...] PERCENT (BEAKER) (test code = 2801) POCT-GLUCOSE [id number] 20:36:00 Test Item Value Reference Range Interpretation Comments POC-GLUCOSE METER 211 mg/dL 70-110 H TESTED AT [place] [address] ([facility]) (test code = JULIANO Osborne [facility] 1538) [address] CREATININE, RANDOM [id number] 19:55:00 Test Item Value Reference Range Interpretation Comments CREATININE URINE ([facility]) (test 16.1 mg/dL code = 375) Reference Range: No NormalsPROTEIN, RANDOM [id number] 19:55:00 Test Item Value Reference Range Interpretation Comments PROTEIN, URINE ([facility]) (test code 102 mg/dL 0-14 H = 1569) POCT-GLUCOSE [id number] 18:04:00 Test Item Value Reference Range Interpretation Comments POC-GLUCOSE METER 177 mg/dL 70-110 H TESTED AT [place] [address] ([facility]) (test code = [facility] Dylon [facility] 1538) [address] POCT-GLUCOSE [id number] 11:59:00 Test Item Value Reference Range Interpretation Comments POC-GLUCOSE METER 244 mg/dL 70-110 H TESTED AT [place] [address] ([facility]) (test code = JULIANO Osborne [facility] 1538) [address] POCT-GLUCOSE [id number] 07:53:00 Test Item Value Reference Range Interpretation Comments POC-GLUCOSE METER 160 mg/dL 70-110 H TESTED AT [place] [address] ([facility]) (test code = [facility] Dylon [facility] 1538) [address] BASIC METABOLIC [id number] 05:29:00 Test Item Value Reference Range Interpretation [...] 697) EGFR (BEAKER) (test 29 mL/min/1.73 ESTIMA HIAN GFR IS code = 1092) sq m NOT ACCURATE CREATININE CLEARANCE IN PREDICTING GLOMERULAR FILTRATION RATE . ESTIMATED GFR I S NOT APPLICABLE FOR DIALYSIS PATIEN TS. [id number] 05:21:00 Test Item Value Reference Range Interpretation Comments MAGNESIUM (BEAKER) (test code = 2.1 mg/dL 1.6-2.6 627) HEPATIC FUNCTION [id number] 05:21:00 Test Item Value Reference Range Interpretation [...] code = 23 U/L 6-55 347) TROPONIN [id number] 05:18:00 Test Item Value Reference Range Interpretation [...] 417) IMMATURE GRANULOCYTES-RELATIVE 0 % 0-1 PERCENT ([facility]) (test code = 2801) TROPONIN [id number] 23:40:00 Test Item Value Reference Range Interpretation [...] acidosis, acute neurological disease, and persistent tachyarrhythmia.POCT-GLUCOSE [id number] 22:51:00 Test Item Value Reference Range Interpretation Comments POC-GLUCOSE METER 214 mg/dL 70-110 H TESTED AT [facility] 6720 ([facility]) (test code = JULIANO Osborne [facility] 1538) [address] RAD, CHEST, 1 VIEW, NON [id number] 21:42:00Reason for exam:->CHEST PAINShould this be performed at the bedside?->YesFINAL REPORT RAD, CHEST, 1 VIEW, NON DEPT INDICATION: CHEST PAIN COMPARISON: Chest x-ray 4 weeks ago TECHNIQUE: Single frontal view of the chest. IMPRESSION:Cardiomegaly.Mild pulmonary interstitial edema with a small right- sided effusion.No acute osseous abnormality. Signed: Kristin Abraham MDReport Verified Date/Time: 09/02/2017 21:42:11 Reading Location: [address] Reading Room CREATININE, RANDOM [id number] 21:10:00 Test Item Value Reference Range Interpretation Comments CREATININE URINE (SERVANDOAKER) (test 35.5 mg/dL code = 375) Reference Range: No NormalsSODIUM, RANDOM [id number] 21:10:00 Test Item Value Reference Range Interpretation Comments SODIUM URINE (SERVANDOAKER) (test code = 80 meq/L 243) Reference Range: No NormalsURINALYSIS W/ [id number] 20:59:00 Test Item Value Reference Range Interpretation [...] code = 514) SOURCE(BEAKER) (test code = 3175) BASIC METABOLIC [id number] 16:49:00 Test Item Value Reference Range Interpretation [...] S NOT APPLICABLE FOR DIALYSIS PATIEN TS. [id number] 16:38:00 Test Item Value Reference Range Interpretation [...] (BEAKER) (test code = 700) BASIC METABOLIC [id number] 13:43:00 Test Item Value Reference Range Interpretation [...] NOT APPLICABLE FOR DIALYSIS PATIEN TS. POCT-GLUCOSE [id number] 12:44:00 Test Item Value Reference Range Interpretation Comments POC-GLUCOSE METER 283 mg/dL 70-110 H TESTED AT [facility] 6720 (BEAKER) (test code = JULIANO [place] 1538) [address] CALCIUM, [id number] 07:03:00 Test Item Value Reference Range Interpretation Comments CALCIUM IONIZED (BEAKER) (test 1.02 mmol/L 1.12-1.27 L code = 698) PH, BLOOD (BEAKER) (test code = 7.43 1810) [id number] 05:28:00 Test Item Value Reference Range Interpretation Comments PHOSPHORUS (BEAKER) (test code = 3.3 mg/dL 2.3-4.7 604) [id number] 05:28:00 Test Item Value Reference Range Interpretation Comments MAGNESIUM (BEAKER) (test code = 1.5 mg/dL 1.6-2.6 L 627) BASIC METABOLIC [id number] 05:28:00 Test Item Value Reference Range Interpretation [...] PATIEN TS. CBC W/PLT COUNT & AUTO [id number] 05:06:00 Test Item Value Reference Range Interpretation [...] EOSINOPHILS ABSOLUTE COUNT 0.31 K/ L 0.04-0.36 (AKER) (test code = 416) BASOPHILS ABSOLUTE COUNT (AKER) 0.07 K/ L 0.01-0.08 (test code = 417) IMMATURE GRANULOCYTES-RELATIVE 1 % 0-1 PERCENT ([facility]) (test code = 2801) POCT-GLUCOSE [id number] 21:08:00 Test Item Value Reference Range Interpretation Comments POC-GLUCOSE METER 202 mg/dL 70-110 H TESTED AT [place] [address] ([facility]) (test code = [facility] 1538) [address] POCT-GLUCOSE [id number] 16:50:00 Test Item Value Reference Range Interpretation Comments POC-GLUCOSE METER 287 mg/dL 70-110 H TESTED AT [place] [address] ([facility]) (test code = [facility] 1538) [address] POCT-GLUCOSE [id number] 12:21:00 Test Item Value Reference Range Interpretation Comments POC-GLUCOSE METER 213 mg/dL 70-110 H TESTED AT [place] [address] ([facility]) (test code = [facility] 1538) [address] POCT-GLUCOSE [id number] 08:28:00 Test Item Value Reference Range Interpretation Comments POC-GLUCOSE METER 178 mg/dL 70-110 H TESTED AT [place] [address] ([facility]) (test code = [facility] 1538) [address] CALCIUM, [id number] 07:06:00 Test Item Value Reference Range Interpretation Comments CALCIUM IONIZED (BEAKER) (test 0.99 mmol/L 1.12-1.27 L code = 698) PH, BLOOD ([facility]) (test code = 7.42 1810) [id number] 05:37:00 Test Item Value Reference Range Interpretation Comments PHOSPHORUS (BEAKER) (test code = 3.5 mg/dL 2.3-4.7 604) [id number] 05:37:00 Test Item Value Reference Range Interpretation Comments MAGNESIUM (BEAKER) (test code = 1.6 mg/dL 1.6-2.6 627) BASIC METABOLIC [id number] 05:37:00 Test Item Value Reference Range Interpretation [...] PATIEN TS. CBC W/PLT COUNT & AUTO [id number] 05:07:00 Test Item Value Reference Range Interpretation [...] PERCENT (BEAKER) (test code = 2801) POCT-GLUCOSE [id number] 21:24:00 Test Item Value Reference Range Interpretation Comments POC-GLUCOSE METER 255 mg/dL 70-110 H TESTED AT [place] [address] ([facility]) (test code = [facility] 1538) [address] POCT-GLUCOSE [id number] 17:11:00 Test Item Value Reference Range Interpretation Comments POC-GLUCOSE METER 244 mg/dL 70-110 H TESTED AT [place] [address] ([facility]) (test code = [facility] 1538) [address] POCT-GLUCOSE [id number] 11:54:00 Test Item Value Reference Range Interpretation Comments POC-GLUCOSE METER 209 mg/dL 70-110 H TESTED AT [place] [address] ([facility]) (test code = [facility] 1538) [address] POCT-GLUCOSE [id number] 08:15:00 Test Item Value Reference Range Interpretation Comments POC-GLUCOSE METER 132 mg/dL 70-110 H TESTED AT [place] [address] ([facility]) (test code = [facility] 1538) [address] RAD, CHEST, 1 VIEW, NON [id number] 07:44:00Reason for exam:->edemaShould this be performed at the bedside?->YesFINAL REPORT Chest one view AP 08/07/2017 7:44 AM CLINICAL INDICATION: edema COMPARISON: 05/31/2017 IMPRESSION: Cardiomediastinal contours are stable. There is mild pulmonary edema,asymmetric to the right. There are trace bilateral pleural effusions, with bibasilar linear atelectasis. Sternotomy wires remain midline. Signed: Eder Cespedes Verified Date/Time: 08/07/2017 07:44:22 Reading Location: [facility] Reading Room [id number] 05:30:00 Test Item Value Reference Range Interpretation Comments FERRITIN (BEAKER) (test code = 361) 87 ng/mL 5-275 CBC W/PLT COUNT & AUTO [id number] 05:21:00 Test Item Value Reference Range Interpretation [...] % 20-55 L (test code = 2590) [id number] 05:11:00 Test Item Value Reference Range Interpretation Comments PHOSPHORUS (BEAKER) (test code = 3.6 mg/dL 2.3-4.7 604) [id number] 05:11:00 Test Item Value Reference Range Interpretation Comments MAGNESIUM (BEAKER) (test code = 2.0 mg/dL 1.6-2.6 627) BASIC METABOLIC [id number] 05:11:00 Test Item Value Reference Range Interpretation [...] H (BEAKER) (test code = 700) CALCIUM, [id number] 04:58:00 Test Item Value Reference Range Interpretation Comments CALCIUM IONIZED (BEAKER) (test 1.04 mmol/L 1.12-1.27 L code = 698) PH, BLOOD (BEAKER) (test code = 7.41 1810) RETICULOCYTE [id number] 04:51:00 Test Item Value Reference Range Interpretation Comments RETICULOCYTE COUNT PCT (BEAKER) (test 1.2 % 0.5-1.7 code = 575) POCT-GLUCOSE [id number] 20:49:00 Test Item Value Reference Range Interpretation Comments POC-GLUCOSE METER 202 mg/dL 70-110 H TESTED AT [facility] 6720 (BEAKER) (test code = MATTHISAAMANDA Dylon [place] 1538) [address] CREATININE, RANDOM [id number] 18:38:00 Test Item Value Reference Range Interpretation Comments CREATININE URINE (BEAKER) (test 56.3 mg/dL code = 375) Reference Range: No NormalsPROTEIN, RANDOM [id number] 18:38:00 Test Item Value Reference Range Interpretation Comments PROTEIN, URINE (BEAKER) (test code 189 mg/dL 0-14 H = 1569) URINALYSIS W/ [id number] 18:34:00 Test Item Value Reference Range Interpretation [...] 516) SOURCE(BEAKER) (test code = Urine, Voided 4011) POCT-GLUCOSE [id number] 17:38:00 Test Item Value Reference Range Interpretation Comments POC-GLUCOSE METER 143 mg/dL 70-110 H TESTED AT [place] [address] (BEAKER) (test code = JULIANO [place] 1538) [address] POCT-GLUCOSE [id number] 12:30:00 Test Item Value Reference Range Interpretation Comments POC-GLUCOSE METER 218 mg/dL 70-110 H TESTED AT [place] [address] (BEAKER) (test code = JULIANO [place] 1538) [address] POCT-GLUCOSE [id number] 08:00:00 Test Item Value Reference Range Interpretation Comments POC-GLUCOSE METER 134 mg/dL 70-110 H TESTED AT [place] [address] (BEAKER) (test code = JULIANO [place] 7218) [address] CBC W/PLT COUNT & AUTO [id number] 04:23:00 Test Item Value Reference Range Interpretation [...] (BEAKER) (test code = 2801) BASIC METABOLIC [id number] 04:13:00 Test Item Value Reference Range Interpretation [...] S NOT APPLICABLE FOR DIALYSIS PATIEN TS. [id number] 04:10:00 Test Item Value Reference Range Interpretation Comments PHOSPHORUS (BEAKER) (test code = 4.9 mg/dL 2.3-4.7 H 604) [id number] 04:10:00 Test Item Value Reference Range Interpretation Comments MAGNESIUM (BEAKER) (test code = 1.4 mg/dL 1.6-2.6 L 627) [id number] 04:08:00 Test Item Value Reference Range Interpretation Comments FIBRINOGEN LEVEL (BEAKER) (test 548 mg/dl 225-434 H code = 658) [id number] 04:08:00 Test Item Value Reference Range Interpretation Comments PARTIAL THROMBOPLASTIN TIME 37.7 seconds 22.5-36.0 H (BEAKER) (test code = 760) PROTHROMBIN [id number] 04:07:00 Test Item Value Reference Range Interpretation Comments PROTIME (BEAKER) (test code = 16.2 seconds 11.7-14.7 H 759) INR (BEAKER) (test code = 370) 1.3 <=5.9 RECOMMENDED COUMADIN/WARFARIN INR THERAPY RANGESSTANDARD DOSE: 2.0 - 3.0 Includes: PROPHYLAXIS forvenous thrombosis, systemic embolization; TREATMENT for venous thrombosis and/or pulmonary embolus.HIGH RISK: Target INR is 2.5-3.5 for patients with mechanical heart valves.[id number] 16:59:00 Test Item Value Reference Range Interpretation Comments ACTIVATED CLOTTING TIME 219 sec TEST ED AT [place] [address] ([facility]) (test code = [facility] 441) [address] BASIC METABOLIC [id number] 14:25:00 Test Item Value Reference Range Interpretation [...] NOT APPLICABLE FOR DIALYSIS PATIEN TS. POCT-GLUCOSE [id number] 13:21:00 Test Item Value Reference Range Interpretation Comments POC-GLUCOSE METER 170 mg/dL 70-110 H TESTED AT [place] [address] ([facility] (test code = [facility] 1538) [address] POTASSIUM-STAT [id number] 13:20:00 Test Item Value Reference Range Interpretation Comments POTASSIUM (BEAKER) (test code = 4.2 meq/L 3.6-5.5 379) SODIUM NA-STAT [id number] 13:20:00 Test Item Value Reference Range Interpretation Comments SODIUM (BEAKER) (test code = 381) 133 meq/L 135-148 L HGB/HCT (H&H) - STAT [id number] 12:34:00 Test Item Value Reference Range Interpretation Comments HEMOGLOBIN (BEAKER) (test code = 10.8 g/dL 12.0-15.0 L 410) HEMATOCRIT (BEAKER) (test code = 32.0 % 36.0-45.0 L 411) POTASSIUM-STAT [id number] 08:15:00 Test Item Value Reference Range Interpretation Comments POTASSIUM (BEAKER) (test code = 4.1 meq/L 3.6-5.5 379) BLOOD GAS, [id number] 08:15:00 Test Item Value Reference Range Interpretation [...] code = 1819) 70.0 % SODIUM NA-STAT [id number] 08:15:00 Test Item Value Reference Range Interpretation Comments SODIUM (BEAKER) (test code = 381) 130 meq/L 135-148 L GLUCOSE-STAT [id number] 08:15:00 Test Item Value Reference Range Interpretation Comments GLUCOSE RANDOM (BEAKER) (test code 172 mg/dL 70-110 H = 652) HGB/HCT (H&H) - STAT [id number] 08:15:00 Test Item Value Reference Range Interpretation Comments HEMOGLOBIN (BEAKER) (test code = 8.8 g/dL 12.0-15.0 L 410) HEMATOCRIT (BEAKER) (test code = 26.0 % 36.0-45.0 L 411) BASIC METABOLIC [id number] 07:37:00 Test Item Value Reference Range Interpretation [...] PATIEN TS. CBC W/PLT COUNT & AUTO [id number] 07:20:00 Test Item Value Reference Range Interpretation [...] 0-1 PERCENT (BEAKER) (test code = 2806) POCT-GLUCOSE [id number] 07:03:00 Test Item Value Reference Range Interpretation Comments POC-GLUCOSE METER 186 mg/dL 70-110 H TESTED AT [facility] 6720 (BEAKER) (test code = JULIANO REYEZ 1538) [address] B-TYPE NATRIURETIC FACTOR (BNP)2017-06-10 12:44:00 Test Item Value Reference Range Interpretation Comments B-TYPE NATRIURETIC PEPTIDE 1264 pg/mL 0-100 H (BEAKER) (test code = 700) [id number] 12:36:00 Test Item Value Reference Range Interpretation Comments MAGNESIUM (BEAKER) (test code = 1.6 mg/dL 1.6-2.6 627) BASIC METABOLIC [id number] 12:36:00 Test Item Value Reference Range Interpretation [...] NOT APPLICABLE FOR DIALYSIS PATIEN TS. POCT-GLUCOSE [id number] 12:04:00 Test Item Value Reference Range Interpretation Comments POC-GLUCOSE METER 274 mg/dL 70-110 H TESTED AT [facility] 6720 ([facility] (test code = JULIANO Osborne [facility] 1538) [address] POCT-GLUCOSE [id number] 07:21:00 Test Item Value Reference Range Interpretation Comments POC-GLUCOSE METER 137 mg/dL 70-110 H TESTED AT [place] [address] ([facility]) (test code = JULIANO Osborne [facility] 1538) [address] BASIC METABOLIC [id number] 05:10:00 Test Item Value Reference Range Interpretation [...] 0-0 (BEAKER) (test code = 413) POCT-GLUCOSE [id number] 21:23:00 Test Item Value Reference Range Interpretation Comments POC-GLUCOSE METER 240 mg/dL 70-110 H TESTED AT [place] [address] ([facility]) (test code = JULIANO REYEZ 1538) [address] POCT-GLUCOSE [id number] 16:42:00 Test Item Value Reference Range Interpretation Comments POC-GLUCOSE METER 234 mg/dL 70-110 H TESTED AT [facility] 6720 ([facility]) (test code = JULIANO [place] 1538) [address] POCT-GLUCOSE [id number] 13:22:00 Test Item Value Reference Range Interpretation Comments POC-GLUCOSE METER 166 mg/dL 70-110 H TESTED AT [facility] 6720 ([facility]) (test code = JULIANO Osborne [facility] 1538) [address] RAD, CHEST, 1 VIEW, NON [id number] 09:43:00Reason for exam:->s/p ACBShould this be performed [...] Lynda Ringepemily Verified Date/Time: 05/31/2017 09:43:30 ReadingLocation: [facility] B1 C013X Ortho Consult Reading Room POCT-GLUCOSE [id number] 06:57:00 Test Item Value Reference Range Interpretation Comments POC-GLUCOSE METER 136 mg/dL 70-110 H TESTED AT [facility] 6720 ([facility]) (test code = JULIANO Osborne [facility] 1538) [address] CALCIUM, [id number] 06:41:00 Test Item Value Reference Range Interpretation Comments CALCIUM IONIZED (BEAKER) (test 1.10 mmol/L 1.12-1.27 L code = 698) PH, BLOOD ([facility]) (test code = 7.42 1810) [id number] 06:17:00 Test Item Value Reference Range Interpretation Comments PHOSPHORUS (BEAKER) (test code = 3.3 mg/dL 2.3-4.7 604) [id number] 06:17:00 Test Item Value Reference Range Interpretation Comments MAGNESIUM (BEAKER) (test code = 1.8 mg/dL 1.6-2.6 627) BASIC METABOLIC [id number] 06:17:00 Test Item Value Reference Range Interpretation [...] PATIEN TS. CBC W/PLT COUNT & AUTO [id number] 05:07:00 Test Item Value Reference Range Interpretation [...] PERCENT (BEAKER) (test code = 2801) POCT-GLUCOSE [id number] 20:56:00 Test Item Value Reference Range Interpretation Comments POC-GLUCOSE METER 196 mg/dL 70-110 H TESTED AT [place] [address] ([facility]) (test code = [facility] 1538) [address] POCT-GLUCOSE [id number] 16:42:00 Test Item Value Reference Range Interpretation Comments POC-GLUCOSE METER 196 mg/dL 70-110 H TESTED AT [place] [address] ([facility]) (test code = [facility] 1538) 28408 POCT-GLUCOSE [id number] 11:45:00 Test Item Value Reference Range Interpretation Comments POC-GLUCOSE METER 215 mg/dL 70-110 H TESTED AT [place] [address] ([facility]) (test code = [facility] 1538) [address] RAD, CHEST, 1 VIEW, NON [id number] 11:15:00Reason for exam:->s/p ACBShould this be performed at the bedside?->YesFINAL REPORT Chest one view compared to May 28, 2017 Discussion: Airspace opacities are seen in both lower lung regions, probably atelectasis. Correlate clinically for infection. I could not exclude small effusions. No pneumothorax. Upper lungs clear. Signed: Jeannette Navaeport Verified Date/Time: 05/30/2017 11:15:07 Reading Location: [facility] Radiology Reading Room CALCIUM, [id number] 09:21:00 Test Item Value Reference Range Interpretation Comments CALCIUM IONIZED (BEAKER) (test 1.11 mmol/L 1.12-1.27 L code = 698) PH, BLOOD (BEAKER) (test code = 7.36 1810) BASIC METABOLIC [id number] 07:37:00 Test Item Value Reference Range Interpretation [...] S NOT APPLICABLE FOR DIALYSIS PATIEN TS. [id number] 07:28:00 Test Item Value Reference Range Interpretation Comments PHOSPHORUS (BEAKER) (test code = 3.8 mg/dL 2.3-4.7 604) [id number] 07:28:00 Test Item Value Reference Range Interpretation Comments MAGNESIUM (BEAKER) (test code = 1.9 mg/dL 1.6-2.6 627) CBC W/PLT COUNT & AUTO [id number] 07:26:00 Test Item Value Reference Range Interpretation [...] 417) IMMATURE GRANULOCYTES-RELATIVE 1 % 0-1 PERCENT ([facility]) (test code = 2801) POCT-GLUCOSE [id number] 07:21:00 Test Item Value Reference Range Interpretation Comments POC-GLUCOSE METER 146 mg/dL 70-110 H TESTED AT [facility] 67 ([facility]) (test code = [facility] Dylon [facility] 1538) [address] POCT-GLUCOSE [id number] 22:02:00 Test Item Value Reference Range Interpretation Comments POC-GLUCOSE METER 201 mg/dL 70-110 H TESTED AT [place] [address] ([facility]) (test code = [facility] 1538) [address] POCT-GLUCOSE [id number] 18:27:00 Test Item Value Reference Range Interpretation Comments POC-GLUCOSE METER 240 mg/dL 70-110 H TESTED AT [place] [address] ([facility]) (test code = [facility] 1538) 69199 POCT-GLUCOSE [id number] 12:13:00 Test Item Value Reference Range Interpretation Comments POC-GLUCOSE METER 193 mg/dL 70-110 H TESTED AT [place] [address] ([facility]) (test code = [facility] 1538) [address]47 POCT-GLUCOSE [id number] 09:02:00 Test Item Value Reference Range Interpretation Comments POC-GLUCOSE METER 132 mg/dL 70-110 H TESTED AT [place] [address] ([facility]) (test code = [facility] 1538) [address] CALCIUM, [id number] 05:42:00 Test Item Value Reference Range Interpretation Comments CALCIUM IONIZED (AKER) (test 1.12 mmol/L 1.12-1.27 code = 698) PH, BLOOD ([facility]) (test code = 7.34 1810) COMPREHENSIVE METABOLIC [id number] 05:33:00 Test Item Value Reference Range Interpretation Comments TOTAL PROTEIN 5.9 gm/dL 6.0-8.3 L (AKER) (test code = 770) ALBUMIN (AKER) 2.7 [...] S NOT APPLICABLE FOR DIALYSIS PATIEN TS. [id number] 05:32:00 Test Item Value Reference Range Interpretation Comments PHOSPHORUS (BEAKER) (test code = 3.6 mg/dL 2.3-4.7 604) [id number] 05:32:00 Test Item Value Reference Range Interpretation Comments MAGNESIUM (BEAKER) (test code = 2.2 mg/dL 1.6-2.6 627) CBC W/PLT COUNT & AUTO [id number] 05:01:00 Test Item Value Reference Range Interpretation [...] PERCENT (BEAKER) (test code = 2801) POCT-GLUCOSE [id number] 21:04:00 Test Item Value Reference Range Interpretation Comments POC-GLUCOSE METER 165 mg/dL 70-110 H TESTED AT [facility] 6720 (BEAKER) (test code = JULIANO REYEZ 1538) [address] POCT-GLUCOSE [id number] 17:30:00 Test Item Value Reference Range Interpretation Comments POC-GLUCOSE METER 236 mg/dL 70-110 H TESTED AT [place] [address] ([facility]) (test code = JULIANO Osborne [facility] 1538) [address] RAD, CHEST, 1 VIEW, NON [id number] 13:53:00Reason for exam:->assess for ill-defined opacityShould this [...] Callaway Verified Date/Time: 05/28/2017 13:53:03 Reading Location: [address] Radiology Reading Room POCT-GLUCOSE [id number] 11:53:00 Test Item Value Reference Range Interpretation Comments POC-GLUCOSE METER 215 mg/dL 70-110 H TESTED AT [place] [address] ([facility]) (test code = JULIANO Osborne [facility] 1538) [address] POCT-GLUCOSE [id number] 08:32:00 Test Item Value Reference Range Interpretation Comments POC-GLUCOSE METER 168 mg/dL 70-110 H TESTED AT [place] [address] ([facility]) (test code = JULIANO Osborne [facility] 1538) [address] CALCIUM, [id number] 05:44:00 Test Item Value Reference Range Interpretation Comments CALCIUM IONIZED (BEAKER) (test 1.09 mmol/L 1.12-1.27 L code = 698) PH, BLOOD (BEAKER) (test code = 7.38 1810) [id number] 05:44:00 Test Item Value Reference Range Interpretation Comments PHOSPHORUS (BEAKER) (test code = 3.5 mg/dL 2.3-4.7 604) [id number] 05:44:00 Test Item Value Reference Range Interpretation Comments MAGNESIUM (BEAKER) (test code = 1.9 mg/dL 1.6-2.6 627) BASIC METABOLIC [id number] 05:44:00 Test Item Value Reference Range Interpretation [...] PATIEN TS. CBC W/PLT COUNT & AUTO [id number] 05:05:00 Test Item Value Reference Range Interpretation [...] % 0-1 PERCENT (BEAKER) (test code = 2804) POCT-GLUCOSE [id number] 21:03:00 Test Item Value Reference Range Interpretation Comments POC-GLUCOSE METER 173 mg/dL 70-110 H TESTED AT [place] [address] ([facility]) (test code = JULIANO [place] 1538) [address] [id number] 18:15:00 Test Item Value Reference Range Interpretation Comments ACTIVATED CLOTTING TIME 147 sec TEST ED AT [place] [address] ([facility]) (test code = [place]IANO [place] 441) [address] [id number] 18:15:00 Test Item Value Reference Range Interpretation Comments ACTIVATED CLOTTING TIME 246 sec TEST ED AT [place] [address] ([facility]) (test code = JULIANO [place] 441) [address] POCT-GLUCOSE [id number] 12:39:00 Test Item Value Reference Range Interpretation Comments POC-GLUCOSE METER 219 mg/dL 70-110 H TESTED AT [facility] 6720 (BEAKER) (test code = JULIANO Osborne [facility] 1538) [address] RAD, CHEST, 1 VIEW, NON [id number] 10:11:00Reason for exam:->pl effusionShould this be performed at the bedside?->YesFINAL REPORT Chest one view compared to May 26 Discussion: There is cardiac prominence. Upper lungs are clear. Ill-defined basilar densities are similar probably atelectasis. No gross effusion or pneumothorax with bilateral chest tubes in place. Signed: Jeannette Nava Verified Date/Time: 05/27/2017 10:11:44 Reading Location: [facility] Radiology Reading Room POCT-GLUCOSE METER 2017-05-27 07:05:00 Test Item Value Reference Range Interpretation Comments POC-GLUCOSE METER 167 mg/dL 70-110 H TESTED AT [facility] 6720 (BEAKER) (test code = JULIANO Osborne [facility] 1538) [address] CALCIUM, [id number] 06:20:00 Test Item Value Reference Range Interpretation Comments CALCIUM IONIZED (BEAKER) (test 0.98 mmol/L 1.12-1.27 L code = 698) PH, BLOOD (BEAKER) (test code = 7.50 1810) [id number] 04:56:00 Test Item Value Reference Range Interpretation Comments PHOSPHORUS (BEAKER) (test code = 2.6 mg/dL 2.3-4.7 604) [id number] 04:56:00 Test Item Value Reference Range Interpretation Comments MAGNESIUM (BEAKER) (test code = 2.0 mg/dL 1.6-2.6 627) BASIC METABOLIC [id number] 04:56:00 Test Item Value Reference Range Interpretation [...] PATIEN TS. CBC W/PLT COUNT & AUTO [id number] 04:36:00 Test Item Value Reference Range Interpretation [...] PERCENT (BEAKER) (test code = 2801) POCT-GLUCOSE [id number] 21:29:00 Test Item Value Reference Range Interpretation Comments POC-GLUCOSE METER 147 mg/dL 70-110 H TESTED AT [place] [address] ([facility]) (test code = [facility] 1538) [address] POCT-GLUCOSE [id number] 17:51:00 Test Item Value Reference Range Interpretation Comments POC-GLUCOSE METER 224 mg/dL 70-110 H TESTED AT [place] [address] ([facility]) (test code = [facility] Dylon [facility] 1538) [address] POCT-GLUCOSE [id number] 13:53:00 Test Item Value Reference Range Interpretation Comments POC-GLUCOSE METER 182 mg/dL 70-110 H TESTED AT [place] [address] ([facility]) (test code = [facility] Dylon [facility] 1538) [address] RAD, CHEST, 1 VIEW, NON [id number] 08:44:00Reason for exam:->pl effusionShould this be performed [...] MDReport Verified Date/Time: 05/26/2017 08:44:25 Reading Location: [address] Radiology Reading Room POCT- GLUCOSE [id number] 07:43:00 Test Item Value Reference Range Interpretation Comments POC-GLUCOSE METER 113 mg/dL 70-110 H TESTED AT [facility] 6720 (BEAKER) (test code = JULIANO [place] 1538) [address] CALCIUM, [id number] 06:31:00 Test Item Value Reference Range Interpretation Comments CALCIUM IONIZED (BEAKER) (test 1.07 mmol/L 1.12-1.27 L code = 698) PH, BLOOD (BEAKER) (test code = 7.38 1810) [id number] 04:51:00 Test Item Value Reference Range Interpretation Comments PHOSPHORUS (BEAKER) (test code = 3.2 mg/dL 2.3-4.7 604) [id number] 04:51:00 Test Item Value Reference Range Interpretation Comments MAGNESIUM (BEAKER) (test code = 2.1 mg/dL 1.6-2.6 627) BASIC METABOLIC [id number] 04:51:00 Test Item Value Reference Range Interpretation [...] PATIEN TS. CBC W/PLT COUNT & AUTO [id number] 04:27:00 Test Item Value Reference Range Interpretation [...] PERCENT (BEAKER) (test code = 2801) POCT-GLUCOSE [id number] 23:48:00 Test Item Value Reference Range Interpretation Comments POC-GLUCOSE METER 123 mg/dL 70-110 H TESTED AT [facility] 6720 ([facility]) (test code = [facility] 1538) [address] POCT-GLUCOSE [id number] 16:46:00 Test Item Value Reference Range Interpretation Comments POC-GLUCOSE METER 178 mg/dL 70-110 H TESTED AT [place] [address] ([facility]) (test code = [facility] 1538) [address] BASIC METABOLIC [id number] 05:53:00 Test Item Value Reference Range Interpretation [...] S NOT APPLICABLE FOR DIALYSIS PATIEN TS. [id number] 05:52:00 Test Item Value Reference Range Interpretation Comments PHOSPHORUS (BEAKER) (test code = 4.2 mg/dL 2.3-4.7 604) [id number] 05:52:00 Test Item Value Reference Range Interpretation Comments MAGNESIUM (BEAKER) (test code = 2.3 mg/dL 1.6-2.6 627) CALCIUM, [id number] 05:27:00 Test Item Value Reference Range Interpretation Comments CALCIUM IONIZED (BEAKER) (test 1.12 mmol/L 1.12-1.27 code = 698) PH, BLOOD (BEAKER) (test code = 7.38 1810) CBC W/PLT COUNT & AUTO [id number] 05:07:00 Test Item Value Reference Range Interpretation [...] = 2801) RAD, CHEST, 1 VIEW, NON [id number] 04:45:00Reason for exam:->pl effusionShould this be performed at the bedside?->YesFINAL REPORT RAD, CHEST, 1 VIEW, NON DEPT INDICATION: pl effusion COMPARISON:Prior day's exam FINDINGS: Portable frontal view of the chest. IMPRESSION: Support Lines: Stable.Lungs and pleura: Unchanged airspace and pleural opacities. No pneumothorax.Heart and mediastinum: Stable contours. Stable surgical changes.Additional findings: None. Signed: JR Boswell Robert MDReport Verified Date/Time: 05/25/2017 04:45:08 Reading Location: [facility] C013Y CT Body Reading Room POCT-GLUCOSE [id number] 01:52:00 Test Item Value Reference Range Interpretation Comments POC-GLUCOSE METER 126 mg/dL 70-110 H TESTED AT [facility] 6720 ([facility]) (test code = JULIANO Osborne [facility] 1538) [address] POCT-GLUCOSE [id number] 13:07:00 Test Item Value Reference Range Interpretation Comments POC-GLUCOSE METER 118 mg/dL 70-110 H TESTED AT [facility] 6720 ([facility]) (test code = JULIANO Osborne [facility] 1538) [address] BRONCHIAL CULTURE + GRAM [id number] 11:35:00 Test Item Value Reference Range Interpretation Comments CULTURE ([facility]) (test code = 1095) Amikacin [...] <1+ gram (BEAKER) (test code = positive 355308) cocci in pairs GRAM STAIN RESULT 1+ gram (BEAKER) (test code = variable rods 740451) 1+ Normal respiratory todd presentRAD, CHEST, 1 VIEW, NON [id number] 06:50:00Reason for exam:->pl effusionShould this be performed at the bedside?->YesFINAL REPORT RAD, CHEST, 1 VIEW, NON DEPT INDICATION: pl effusion COMPARISON:Prior day's exam FINDINGS: Portable frontal view of the chest. IMPRESSION: Support Lines: Stable.Lungs and pleura: Unchanged airspace and pleural opacities. No pneumothorax.Heart and mediastinum: Stable contours. Stable surgical changes.Additional findings: None. Signed: JR Boswell Robert MDReport Verified Date/Time: 05/24/2017 06:50:08 Reading Location: [address] Body Reading Room BASIC METABOLIC [id number] 04:19:00 Test Item Value Reference Range Interpretation [...] NOT APPLICABLE FOR DIALYSIS PATIEN TS. CALCIUM, [id number] 04:16:00 Test Item Value Reference Range Interpretation Comments CALCIUM IONIZED (BEAKER) (test 1.06 mmol/L 1.12-1.27 L code = 698) PH, BLOOD (BEAKER) (test code = 7.40 1810) [id number] 04:11:00 Test Item Value Reference Range Interpretation Comments PHOSPHORUS (BEAKER) (test code = 6.0 mg/dL 2.3-4.7 H 604) [id number] 04:11:00 Test Item Value Reference Range Interpretation Comments MAGNESIUM (BEAKER) (test code = 2.4 mg/dL 1.6-2.6 627) CBC W/PLT COUNT & AUTO [id number] 03:50:00 Test Item Value Reference Range Interpretation [...] PERCENT (BEAKER) (test code = 2801) POCT-GLUCOSE [id number] 20:45:00 Test Item Value Reference Range Interpretation Comments POC-GLUCOSE METER 143 mg/dL 70-110 H TESTED AT [facility] 6720 (BEAKER) (test code = JULIANO Osborne [facility] 1538) [address] POCT-GLUCOSE [id number] 20:45:00 Test Item Value Reference Range Interpretation Comments POC-GLUCOSE METER 145 mg/dL 70-110 H TESTED AT [facility] 6720 ([place]) (test code = JULIANO [place] 1538) [address] [id number] 13:37:00 Test Item Value Reference Range Interpretation Comments PREALBUMIN (BEAKER) 10 mg/dL 14-45 L Specimen slightly (test code = 586) hemolyzed OXYGEN SATURATION, [id number] 12:31:00 Test Item Value Reference Range Interpretation Comments O2 SATURATION (MEASURED) (BEAKER) 94.5 % (test code = 1455) [id number] 11:02:00 Test Item Value Reference Range Interpretation Comments PREALBUMIN (BEAKER) (test code = 10 mg/dL 14-45 L 586) RAD, CHEST, 1 VIEW, NON [id number] 05:14:00while patient is intubated or has chest [...] MDReport Verified Date/Time: 05/23/2017 05:14:04 Reading Location: [facility] C013Y CT Body Reading Room BASIC METABOLIC [id number] 03:48:00 Test Item Value Reference Range Interpretation [...] S NOT APPLICABLE FOR DIALYSIS PATIEN TS. [id number] 03:46:00 Test Item Value Reference Range Interpretation Comments MAGNESIUM (BEAKER) 2.4 mg/dL 1.6-2.6 Specimen slightly (test code = 627) hemolyzed [id number] 03:46:00 Test Item Value Reference Range Interpretation Comments PHOSPHORUS (BEAKER) 6.5 mg/dL 2.3-4.7 H Specimen slightly (test code = 604) hemolyzed CBC W/PLT COUNT & AUTO [id number] 03:26:00 Test Item Value Reference Range Interpretation [...] (BEAKER) (test code = 2801) BLOOD GAS, [id number] 03:18:00 Test Item Value Reference Range Interpretation [...] (test code = 1819) 36.0 % CALCIUM, [id number] 16:32:00 Test Item Value Reference Range Interpretation Comments CALCIUM IONIZED (BEAKER) (test 1.11 mmol/L 1.12-1.27 L code = 698) PH, BLOOD (BEAKER) (test code = 7.39 1810) BASIC METABOLIC [id number] 15:43:00 Test Item Value Reference Range Interpretation [...] NOT APPLICABLE FOR DIALYSIS PATIEN TS. POCT-GLUCOSE [id number] 12:53:00 Test Item Value Reference Range Interpretation Comments POC-GLUCOSE METER 118 mg/dL 70-110 H TESTED AT [facility] 6720 (BEAKER) (test code = [place]IANO [place] 1538) [address] BLOOD GAS, [id number] 10:42:00 Test Item Value Reference Range Interpretation [...] (test code = 1819) 40.0 % POCT-GLUCOSE [id number] 06:46:00 Test Item Value Reference Range Interpretation Comments POC-GLUCOSE METER 106 mg/dL 70-110 TESTED AT [facility] 6720 (BEAKER) (test code = [place]IANO [place] 1538) [address] RAD, CHEST, 1 VIEW, NON [id number] 05:05:00while patient is intubated or has chest [...] MDReport Verified Date/Time: 05/22/2017 05:05:00 Reading Location: [address] Body ReadingRoom BASIC METABOLIC [id number] 05:00:00 Test Item Value Reference Range Interpretation [...] S NOT APPLICABLE FOR DIALYSIS PATIEN TS. [id number] 04:41:00 Test Item Value Reference Range Interpretation Comments PHOSPHORUS (BEAKER) (test code = 6.4 mg/dL 2.3-4.7 H 604) [id number] 04:41:00 Test Item Value Reference Range Interpretation Comments MAGNESIUM (BEAKER) (test code = 2.6 mg/dL 1.6-2.6 627) CALCIUM, [id number] 04:26:00 Test Item Value Reference Range Interpretation Comments CALCIUM IONIZED (BEAKER) (test 1.09 mmol/L 1.12-1.27 L code = 698) PH, BLOOD (BEAKER) (test code = 7.40 1810) OXYGEN SATURATION, [id number] 04:25:00 Test Item Value Reference Range Interpretation Comments O2 SATURATION (MEASURED) (BEAKER) 77.0 % (test code = 1455) CBC W/PLT COUNT & AUTO [id number] 04:17:00 Test Item Value Reference Range Interpretation [...] code = 2801) LACTIC ACID, ARTERIAL, WHOLE [id number] 00:07:00 Test Item Value Reference Range Interpretation Comments LACTATE BLOOD 1.0 mmol/L 0.5-2.2 Specimen sligh tly ARTERIAL (2) (BEAKER) hemoly zed (test code = 2874) Effective 08/02/2015: Units/Reference Range ChangeNew: 0.5-2.2 mmol/L Previous: 5-20 mg/dLPOCT-GLUCOSE [id number] 23:47:00 Test Item Value Reference Range Interpretation Comments POC-GLUCOSE METER 180 mg/dL 70-110 H TESTED AT [facility] 6720 (BEAKER) (test code = [place] 1538) [address] BLOOD GAS, [id number] 23:46:00 Test Item Value Reference Range Interpretation [...] code = 1819) 100.0 % SODIUM NA-STAT [id number] 23:46:00 Test Item Value Reference Range Interpretation Comments SODIUM (BEAKER) (test code = 381) 134 meq/L 135-148 L GLUCOSE-STAT [id number] 23:46:00 Test Item Value Reference Range Interpretation Comments GLUCOSE RANDOM (BEAKER) (test code 119 mg/dL 70-110 H = 652) HGB/HCT (H&H) - STAT [id number] 23:46:00 Test Item Value Reference Range Interpretation Comments HEMOGLOBIN (BEAKER) (test code = 8.8 g/dL 12.0-15.0 L 410) HEMATOCRIT (BEAKER) (test code = 26.0 % 36.0-45.0 L 411) OXYGEN SATURATION, [id number] 23:45:00 Test Item Value Reference Range Interpretation Comments O2 SATURATION (MEASURED) (BEAKER) 68.1 % (test code = 1455) POTASSIUM-STAT [id number] 23:45:00 Test Item Value Reference Range Interpretation Comments POTASSIUM (BEAKER) (test code = 5.5 meq/L 3.6-5.5 379) POCT-GLUCOSE [id number] 20:58:00 Test Item Value Reference Range Interpretation Comments POC-GLUCOSE METER 133 mg/dL 70-110 H TESTED AT [facility] 6720 (BEAKER) (test code = JULIANO Osborne [place] 1538) [address] POCT-GLUCOSE [id number] 17:58:00 Test Item Value Reference Range Interpretation Comments POC-GLUCOSE METER 210 mg/dL 70-110 H TESTED AT [place] [address] ([facility]) (test code = JULIANO Osborne [place] 1538) [address] POCT-GLUCOSE [id number] 17:58:00 Test Item Value Reference Range Interpretation Comments POC-GLUCOSE METER 211 mg/dL 70-110 H TESTED AT [place] [address] (BEAKER) (test code = JULIANO Osborne [place] 1538) [address] POCT-GLUCOSE [id number] 17:58:00 Test Item Value Reference Range Interpretation Comments POC-GLUCOSE METER 232 mg/dL 70-110 H TESTED AT [place] [address] (BEAKER) (test code = JULIANO Osborne [place] 1538) [address] POCT-GLUCOSE [id number] 17:58:00 Test Item Value Reference Range Interpretation Comments POC-GLUCOSE METER 262 mg/dL 70-110 H TESTED AT [place] [address] ([facility]) (test code = JULIANO Osborne [place] 1538) [address] BLOOD GAS, [id number] 17:01:00 Test Item Value Reference Range Interpretation [...] (test code = 1819) 60.0 % POTASSIUM-STAT [id number] 17:00:00 Test Item Value Reference Range Interpretation Comments POTASSIUM (BEAKER) (test code = 4.8 meq/L 3.6-5.5 379) POCT-GLUCOSE [id number] 15:52:00 Test Item Value Reference Range Interpretation Comments POC-GLUCOSE METER 267 mg/dL 70-110 H TESTED AT [place] [address] ([facility]) (test code = JULIANO Osborne [place] 1538) [address] POCT-GLUCOSE [id number] 14:42:00 Test Item Value Reference Range Interpretation Comments POC-GLUCOSE METER 231 mg/dL 70-110 H TESTED AT [facility] 6720 (BEAKER) (test code = JULIANO REYEZ 1538) [address] BODY FLUID CELL COUNT WITH [id number] 14:41:00 Test Item Value Reference Range Interpretation [...] Tube (test code = 2873) BASIC METABOLIC [id number] 14:11:00 Test Item Value Reference Range Interpretation [...] S NOT APPLICABLE FOR DIALYSIS PATIEN TS. [id number] 14:08:00 Test Item Value Reference Range Interpretation Comments PHOSPHORUS (BEAKER) (test code = 7.2 mg/dL 2.3-4.7 H 604) [id number] 14:08:00 Test Item Value Reference Range Interpretation Comments MAGNESIUM (BEAKER) (test code = 2.6 mg/dL 1.6-2.6 627) POCT-GLUCOSE [id number] 12:49:00 Test Item Value Reference Range Interpretation Comments POC-GLUCOSE METER 224 mg/dL 70-110 H TESTED AT [facility] 6720 (BEDANIELA) (test code = JULIANO Osborne [facility] 1538) [address] POCT-GLUCOSE [id number] 12:49:00 Test Item Value Reference Range Interpretation Comments POC-GLUCOSE METER 248 mg/dL 70-110 H TESTED AT [facility] 6720 (ROBERT) (test code = JULIANO Osborne [facility] 1538) [address] RAD, CHEST, 1 VIEW, NON [id number] 12:32:00Reason for exam:->re-intubationShould this be performed at [...] MDReport Verified Date/Time: 05/21/2017 12:32:08 Reading Location: [facility] Reading Room POTASSIUM-STAT [id number] 12:28:00 Test Item Value Reference Range Interpretation Comments POTASSIUM (BEAKER) (test code = 5.5 meq/L 3.6-5.5 379) BLOOD GAS, [id number] 12:28:00 Test Item Value Reference Range Interpretation [...] code = 1819) 100.0 % BLOOD GAS, [id number] 10:53:00 Test Item Value Reference Range Interpretation [...] 36.0 % RAD, CHEST, 1 VIEW, NON [id number] 08:46:00while patient is intubated or has chest [...] MDReport Verified Date/Time: 05/21/2017 08:46:27 Reading Location: [facility] Reading Room BLOOD GAS, [id number] 05:41:00 Test Item Value Reference Range Interpretation [...] (BEAKER) (test code = 1819) 40 CALCIUM, [id number] 04:35:00 Test Item Value Reference Range Interpretation Comments CALCIUM IONIZED (BEAKER) (test 1.13 mmol/L 1.12-1.27 code = 698) PH, BLOOD (BEAKER) (test code = 7.32 1810) BLOOD GAS, [id number] 04:28:00 Test Item Value Reference Range Interpretation [...] (BEAKER) (test code = 1819) 40.0 % [id number] 04:20:00 Test Item Value Reference Range Interpretation Comments PHOSPHORUS (BEAKER) (test code = 6.2 mg/dL 2.3-4.7 H 604) [id number] 04:20:00 Test Item Value Reference Range Interpretation Comments MAGNESIUM (BEAKER) (test code = 2.4 mg/dL 1.6-2.6 627) HEPATIC FUNCTION [id number] 04:20:00 Test Item Value Reference Range Interpretation [...] = 11 U/L 6-55 347) BASIC METABOLIC [id number] 04:20:00 Test Item Value Reference Range Interpretation [...] APPLICABLE FOR DIALYSIS PATIEN TS. OXYGEN SATURATION, [id number] 04:18:00 Test Item Value Reference Range Interpretation Comments O2 SATURATION (MEASURED) (BEAKER) 68.0 % (test code = 1455) LACTIC ACID, ARTERIAL, WHOLE [id number] 04:12:00 Test Item Value Reference Range Interpretation Comments LACTATE BLOOD ARTERIAL (2) 1.0 mmol/L 0.5-2.2 (BEAKER) (test code = 2874) Effective 08/02/2015: Units/Reference Range ChangeNew: 0.5-2.2 mmol/L Previous: 5-20 mg/dLCBC W/PLT COUNT & AUTO [id number] 04:00:00 Test Item Value Reference Range Interpretation [...] (BEAKER) (test code = 2801) BLOOD GAS, [id number] 00:06:00 Test Item Value Reference Range Interpretation [...] (BEAKER) (test code = 1819) 40.0 % [id number] 18:55:00 Test Item Value Reference Range Interpretation Comments PHOSPHORUS (BEAKER) (test code = 4.8 mg/dL 2.3-4.7 H 604) [id number] 18:55:00 Test Item Value Reference Range Interpretation Comments MAGNESIUM (BEAKER) (test code = 2.3 mg/dL 1.6-2.6 627) BASIC METABOLIC [id number] 18:55:00 Test Item Value Reference Range Interpretation [...] DIALYSIS PATIEN TS. LACTIC ACID, ARTERIAL, WHOLE [id number] 18:53:00 Test Item Value Reference Range Interpretation Comments LACTATE BLOOD 0.9 mmol/L 0.5-2.2 Specimen sligh tly ARTERIAL (2) (BEAKER) hemoly zed (test code = 2874) Effective 08/02/2015: Units/Reference Range ChangeNew: 0.5-2.2 mmol/L Previous: 5-20 mg/dLRAD, CHEST, 1 VIEW, NON [id number] 18:44:00Reason for exam:- >postop cardiacShould this be [...] MDReport Verified Date/Time: 05/20/2017 18:44:30 Reading Location: [facility] C0W Consult Reading Room Electronically signed by: LISA LI M.D. on05/20/2017 06:44 PMCBC W/PLT COUNT & AUTO [id number] 18:38:00 Test Item Value Reference Range Interpretation [...] 0-1 PERCENT (BEAKER) (test code = 2806) OXYGEN SATURATION, [id number] 18:36:00 Test Item Value Reference Range Interpretation Comments O2 SATURATION (MEASURED) (BEAKER) 72.5 % (test code = 1455) From distal port of IJ central venous catheterSODIUM NA-STAT [id number] 18:30:00 Test Item Value Reference Range Interpretation Comments SODIUM (BEAKER) (test code = 381) 132 meq/L 135-148 L HGB/HCT (H&H) - STAT [id number] 18:30:00 Test Item Value Reference Range Interpretation Comments HEMOGLOBIN (BEAKER) (test code = 9.4 g/dL 12.0-15.0 L 410) HEMATOCRIT (BEAKER) (test code = 28.0 % 36.0-45.0 L 411) GLUCOSE-STAT [id number] 18:30:00 Test Item Value Reference Range Interpretation Comments GLUCOSE RANDOM (BEAKER) (test code 159 mg/dL 70-110 H = 652) BLOOD GAS, [id number] 18:30:00 Test Item Value Reference Range Interpretation [...] (test code = 1819) 60.0 % CALCIUM, [id number] 18:30:00 Test Item Value Reference Range Interpretation Comments CALCIUM IONIZED (BEAKER) (test 0.94 mmol/L 1.12-1.27 L code = 698) PH, BLOOD (BEAKER) (test code = 7.34 1810) POTASSIUM-STAT [id number] 18:28:00 Test Item Value Reference Range Interpretation [...] (test 0.0 % 0.0-5.0 code = 1414) [id number] 17:53:00 Test Item Value Reference Range Interpretation Comments ACTIVATED CLOTTING TIME 103 sec TEST ED AT [place] [address] ([facility]) (test code = [place] [address]) [address] [id number] 17:53:00 Test Item Value Reference Range Interpretation Comments ACTIVATED CLOTTING TIME 466 sec TEST ED AT [place] [address] ([facility]) (test code = [place] [address]) [address] [id number] 17:53:00 Test Item Value Reference Range Interpretation Comments ACTIVATED CLOTTING TIME 543 sec TEST ED AT [place] [address] ([facility]) (test code = [place] [address]) [address] [id number] 17:53:00 Test Item Value Reference Range Interpretation Comments ACTIVATED CLOTTING TIME 549 sec TEST ED AT [place] [address] ([facility]) (test code = [place] [address]) [address] [id number] 17:53:00 Test Item Value Reference Range Interpretation Comments ACTIVATED CLOTTING TIME 632 sec TEST ED AT [place] [address] ([facility]) (test code = [place] [address]) [address] [id number] 17:53:00 Test Item Value Reference Range Interpretation Comments ACTIVATED CLOTTING TIME 494 sec TEST ED AT [place] [address] ([facility]) (test code = [place] [address]) [address] [id number] 17:53:00 Test Item Value Reference Range Interpretation Comments ACTIVATED CLOTTING TIME 587 sec TEST ED AT [place] [address] ([facility]) (test code = [place] [address]) [address] [id number] 17:53:00 Test Item Value Reference Range Interpretation Comments ACTIVATED CLOTTING TIME 626 sec TEST ED AT [place] [address] ([facility]) (test code = [place] [address]) [address] [id number] 17:52:00 Test Item Value Reference Range Interpretation Comments ACTIVATED CLOTTING TIME 808 sec TEST ED AT [place] [address] ([facility]) (test code = JULIANO Osborne [place] [address]) [address] [id number] 16:54:00 Test Item Value Reference Range Interpretation Comments PARTIAL THROMBOPLASTIN TIME 40.2 seconds 22.5-36.0 H ([facility]) (test code = 760) [id number] 16:53:00 Test Item Value Reference Range Interpretation Comments FIBRINOGEN LEVEL ([facility]) (test 306 mg/dl 225-434 code = 658) PROTHROMBIN [id number] 16:50:00 Test Item Value Reference Range Interpretation Comments PROTIME ([facility]) (test code = 19.6 seconds 11.7-14.7 H 759) INR (BEAKER) (test code = 370) 1.7 <=5.9 RECOMMENDED COUMADIN/WARFARIN INR THERAPY RANGESSTANDARD DOSE: 2.0 - 3.0 Includes: PROPHYLAXIS forvenous thrombosis, systemic embolization; TREATMENT for venous thrombosis and/or pulmonary embolus.HIGH RISK: Target INR is 2.5-3.5 for patients with mechanical heart valves.PLATELET [id number] 16:45:00 Test Item Value Reference Range Interpretation Comments PLATELET COUNT (BEAKER) (test 136 K/CU MM 150-450 L code = 756) POTASSIUM-STAT [id number] 16:15:00 Test Item Value Reference Range Interpretation Comments POTASSIUM (BEAKER) (test code = 4.9 meq/L 3.6-5.5 379) BLOOD GAS, [id number] 16:15:00 Test Item Value Reference Range Interpretation [...] code = 1819) 100.0 % SODIUM NA-STAT [id number] 16:15:00 Test Item Value Reference Range Interpretation Comments SODIUM (BEAKER) (test code = 381) 131 meq/L 135-148 L GLUCOSE-STAT [id number] 16:15:00 Test Item Value Reference Range Interpretation Comments GLUCOSE RANDOM (BEAKER) (test code 198 mg/dL 70-110 H = 652) HGB/HCT (H&H) - STAT [id number] 16:15:00 Test Item Value Reference Range Interpretation Comments HEMOGLOBIN (BEAKER) (test code = 7.5 g/dL 12.0-15.0 L 410) HEMATOCRIT (BEAKER) (test code = 22.0 % 36.0-45.0 L 411) CALCIUM, [id number] 16:14:00 Test Item Value Reference Range Interpretation Comments CALCIUM IONIZED (BEAKER) (test 0.91 mmol/L 1.12-1.27 L code = 698) PH, BLOOD (BEAKER) (test code = 7.39 1810) BLOOD GAS, [id number] 15:39:00 Test Item Value Reference Range Interpretation [...] code = 1819) 70.0 % SODIUM NA-STAT [id number] 15:39:00 Test Item Value Reference Range Interpretation Comments SODIUM (BEAKER) (test code = 381) 131 meq/L 135-148 L GLUCOSE-STAT [id number] 15:39:00 Test Item Value Reference Range Interpretation Comments GLUCOSE RANDOM (BEAKER) (test code 186 mg/dL 70-110 H = 652) HGB/HCT (H&H) - STAT [id number] 15:39:00 Test Item Value Reference Range Interpretation Comments HEMOGLOBIN (BEAKER) (test code = 7.5 g/dL 12.0-15.0 L 410) HEMATOCRIT (BEAKER) (test code = 22.0 % 36.0-45.0 L 411) POTASSIUM-STAT [id number] 15:38:00 Test Item Value Reference Range Interpretation Comments POTASSIUM (BEAKER) (test code = 5.3 meq/L 3.6-5.5 379) BLOOD GAS, [id number] 15:24:00 Test Item Value Reference Range Interpretation [...] code = 1819) 70.0 % SODIUM NA-STAT [id number] 15:24:00 Test Item Value Reference Range Interpretation Comments SODIUM (BEAKER) (test code = 381) 130 meq/L 135-148 L GLUCOSE-STAT [id number] 15:24:00 Test Item Value Reference Range Interpretation Comments GLUCOSE RANDOM (BEAKER) (test code 189 mg/dL 70-110 H = 652) HGB/HCT (H&H) - STAT [id number] 15:24:00 Test Item Value Reference Range Interpretation Comments HEMOGLOBIN (BEAKER) (test code = 6.7 g/dL 12.0-15.0 L 410) HEMATOCRIT (BEAKER) (test code = 20.0 % 36.0-45.0 L 411) POTASSIUM-STAT [id number] 15:23:00 Test Item Value Reference Range Interpretation Comments POTASSIUM (BEAKER) (test code = 5.4 meq/L 3.6-5.5 379) BLOOD GAS, [id number] 15:07:00 Test Item Value Reference Range Interpretation [...] code = 1819) 70.0 % SODIUM NA-STAT [id number] 15:07:00 Test Item Value Reference Range Interpretation Comments SODIUM (BEAKER) (test code = 381) 129 meq/L 135-148 L GLUCOSE-STAT [id number] 15:07:00 Test Item Value Reference Range Interpretation Comments GLUCOSE RANDOM (BEAKER) (test code 172 mg/dL 70-110 H = 652) HGB/HCT (H&H) - STAT [id number] 15:07:00 Test Item Value Reference Range Interpretation Comments HEMOGLOBIN (BEAKER) (test code = 7.1 g/dL 12.0-15.0 L 410) HEMATOCRIT (BEAKER) (test code = 21.0 % 36.0-45.0 L 411) POTASSIUM-STAT [id number] 15:04:00 Test Item Value Reference Range Interpretation Comments POTASSIUM (BEAKER) (test code = 5.0 meq/L 3.6-5.5 379) BLOOD GAS, [id number] 14:21:00 Test Item Value Reference Range Interpretation [...] code = 1819) 70.0 % SODIUM NA-STAT [id number] 14:21:00 Test Item Value Reference Range Interpretation Comments SODIUM (BEAKER) (test code = 381) 133 meq/L 135-148 L GLUCOSE-STAT [id number] 14:21:00 Test Item Value Reference Range Interpretation Comments GLUCOSE RANDOM (BEAKER) (test code 160 mg/dL 70-110 H = 652) HGB/HCT (H&H) - STAT [id number] 14:21:00 Test Item Value Reference Range Interpretation Comments HEMOGLOBIN (BEAKER) (test code = 7.5 g/dL 12.0-15.0 L 410) HEMATOCRIT (BEAKER) (test code = 22.0 % 36.0-45.0 L 411) POTASSIUM-STAT [id number] 14:20:00 Test Item Value Reference Range Interpretation Comments POTASSIUM (BEAKER) (test code = 4.7 meq/L 3.6-5.5 379) BLOOD GAS, [id number] 13:58:00 Test Item Value Reference Range Interpretation [...] code = 1819) 80.0 % SODIUM NA-STAT [id number] 13:58:00 Test Item Value Reference Range Interpretation Comments SODIUM (BEAKER) (test code = 381) 132 meq/L 135-148 L GLUCOSE-STAT [id number] 13:58:00 Test Item Value Reference Range Interpretation Comments GLUCOSE RANDOM (BEAKER) (test code 166 mg/dL 70-110 H = 652) HGB/HCT (H&H) - STAT [id number] 13:58:00 Test Item Value Reference Range Interpretation Comments HEMOGLOBIN (BEAKER) (test code = 7.5 g/dL 12.0-15.0 L 410) HEMATOCRIT (BEAKER) (test code = 22.0 % 36.0-45.0 L 411) POTASSIUM-STAT [id number] 13:57:00 Test Item Value Reference Range Interpretation Comments POTASSIUM (BEAKER) (test code = 4.7 meq/L 3.6-5.5 379) BLOOD GAS, [id number] 13:35:00 Test Item Value Reference Range Interpretation [...] (test code = 1819) 80.0 % GLUCOSE-STAT [id number] 13:35:00 Test Item Value Reference Range Interpretation Comments GLUCOSE RANDOM (BEAKER) (test code 130 mg/dL 70-110 H = 652) HGB/HCT (H&H) - STAT [id number] 13:35:00 Test Item Value Reference Range Interpretation Comments HEMOGLOBIN (BEAKER) (test code = 6.7 g/dL 12.0-15.0 L 410) HEMATOCRIT (BEAKER) (test code = 20.0 % 36.0-45.0 L 411) SODIUM NA-STAT [id number] 13:35:00 Test Item Value Reference Range Interpretation Comments SODIUM (BEAKER) (test code = 381) 133 meq/L 135-148 L POTASSIUM-STAT [id number] 13:34:00 Test Item Value Reference Range Interpretation Comments POTASSIUM (BEAKER) (test code = 4.2 meq/L 3.6-5.5 379) BLOOD GAS, [id number] 13:16:00 Test Item Value Reference Range Interpretation [...] code = 1819) 80.0 % SODIUM NA-STAT [id number] 13:16:00 Test Item Value Reference Range Interpretation Comments SODIUM (BEAKER) (test code = 381) 133 meq/L 135-148 L HGB/HCT (H&H) - STAT [id number] 13:16:00 Test Item Value Reference Range Interpretation Comments HEMOGLOBIN (BEAKER) (test code = 6.3 g/dL 12.0-15.0 L 410) HEMATOCRIT (BEAKER) (test code = 19.0 % 36.0-45.0 L 411) CALCIUM, [id number] 13:15:00 Test Item Value Reference Range Interpretation Comments CALCIUM IONIZED (BEAKER) (test 0.98 mmol/L 1.12-1.27 L code = 698) PH, BLOOD (BEAKER) (test code = 7.34 1810) BLOOD GAS, [id number] 13:15:00 Test Item Value Reference Range Interpretation [...] (test code = 1819) 80.0 % GLUCOSE-STAT [id number] 13:14:00 Test Item Value Reference Range Interpretation Comments GLUCOSE RANDOM (BEAKER) (test code = 92 mg/dL 70-110 652) POTASSIUM-STAT [id number] 13:14:00 Test Item Value Reference Range Interpretation Comments POTASSIUM (BEAKER) (test code = 3.9 meq/L 3.6-5.5 379) BLOOD GAS, [id number] 10:54:00 Test Item Value Reference Range Interpretation [...] 1819) 100.0 % HGB/HCT (H&H) - STAT [id number] 10:54:00 Test Item Value Reference Range Interpretation Comments HEMOGLOBIN (BEAKER) (test code = 9.3 g/dL 12.0-15.0 L 410) HEMATOCRIT (BEAKER) (test code = 27.0 % 36.0-45.0 L 411) SODIUM NA-STAT [id number] 10:54:00 Test Item Value Reference Range Interpretation Comments SODIUM (BEAKER) (test code = 381) 132 meq/L 135-148 L GLUCOSE-STAT [id number] 10:52:00 Test Item Value Reference Range Interpretation Comments GLUCOSE RANDOM (BEAKER) (test code = 94 mg/dL 70-110 652) POTASSIUM-STAT [id number] 10:52:00 Test Item Value Reference Range Interpretation Comments POTASSIUM (BEAKER) (test code = 4.0 meq/L 3.6-5.5 379) HEMOGLOBIN [id number] 09:50:00 Test Item Value Reference Range Interpretation Comments HEMOGLOBIN A1C (BEAKER) (test code = 10.6 % 4.3-6.1 H 368) PLATELET AGGREGATION: FUNCTION [id number] 08:27:00 Test Item Value Reference Range Interpretation Comments WEAK ADP 63 % 60-91 RESULT(BEAKER) (test code = 2135) PLATELET FUNCTION 60-100% indicates SCREEN INTERP (BEAKER) normal platelet (test code = 2173) function [id number] Toshia Post MD (BEAKER) (test code = (electronic signature) 4861) PLATELET COUNT AGG 198 K/CU MM 150-450 (BEAKER) (test code = 2176) for patients on clopidogrel in past two weeksPOCT-GLUCOSE [id number] 08:11:00 Test Item Value Reference Range Interpretation Comments POC-GLUCOSE METER 116 mg/dL 70-110 H TESTED AT [facility] 6720 (BEAKER) (test code = [place] 1538) [address] [id number] 07:10:00 Test Item Value Reference Range Interpretation Comments PHOSPHORUS (BEAKER) (test code = 4.5 mg/dL 2.3-4.7 604) [id number] 07:10:00 Test Item Value Reference Range Interpretation Comments MAGNESIUM (BEAKER) (test code = 2.1 mg/dL 1.6-2.6 627) BASIC METABOLIC [id number] 07:10:00 Test Item Value Reference Range Interpretation [...] = 700) CBC W/PLT COUNT & AUTO [id number] 06:46:00 Test Item Value Reference Range Interpretation [...] PERCENT (BEAKER) (test code = 2801) CALCIUM, [id number] 06:40:00 Test Item Value Reference Range Interpretation Comments CALCIUM IONIZED (BEAKER) (test 1.06 mmol/L 1.12-1.27 L code = 698) PH, BLOOD (BEAKER) (test code = 7.39 1810) POCT-GLUCOSE [id number] 23:22:00 Test Item Value Reference Range Interpretation Comments POC-GLUCOSE METER 165 mg/dL 70-110 H TESTED AT [facility] 6720 (BEAKER) (test code = [facility] [place] 1538) [address] URINE PROTEIN ELECTROPHORESIS, [id number] 18:02:00 Test Item Value Reference Range Interpretation Comments PROTEIN, URINE 305 mg/dL 0-14 H (BEAKER) (test code = 1569) ALBUMIN URINE ELP 70.9 % (BEAKER) (test code = 1018) GAMMA GLOBULIN URINE 29.1 % (BEAKER) (test code = 1015) UPEP, ID-438 (BEAKER) No monoclonal bands (test code = 2604) detected. [id number] Rocio Galindo MD (BEAKER) (test code = (electronic signature) 6827) PROTEIN ELECTROPHORESIS, [id number] 17:57:00 Test Item Value Reference Range Interpretation [...] all globulin fractions. No monoclonal bands detected. [id number] Rocio Galindo MD (BEAKER) (test code = (electronic signature) 2616) PROTEIN TOTAL SERUM, 5.5 gm/dL 6.0-8.3 L SPEP (BEAKER) (test code = 9737) POCT-GLUCOSE [id number] 17:15:00 Test Item Value Reference Range Interpretation Comments POC-GLUCOSE METER 209 mg/dL 70-110 H TESTED AT [facility] 6720 (BEAKER) (test code = [place] 1538) [address] BLOOD GAS, [id number] 15:54:00 Test Item Value Reference Range Interpretation [...] 36.0 % RAD, CHEST, 1 VIEW, NON [id number] 14:07:00Reason for exam:->SOB, hypoxemiaShould this be performed [...] Eder Cespedesort Verified Date/Time: 05/19/2017 14:07:07 Reading Location:[facility] B1 [id number] Consult Reading Room POCT-GLUCOSE [id number] 11:26:00 Test Item Value Reference Range Interpretation Comments POC-GLUCOSE METER 262 mg/dL 70-110 H TESTED AT [facility] 6720 (BEAKER) (test code = [facility] 1538) [address] POCT-GLUCOSE [id number] 07:37:00 Test Item Value Reference Range Interpretation Comments POC-GLUCOSE METER 170 mg/dL 70-110 H TESTED AT [facility] 67 (BEAKER) (test code = [facility] 1538) [address] CALCIUM, [id number] 06:06:00 Test Item Value Reference Range Interpretation Comments CALCIUM IONIZED (BEAKER) (test 1.05 mmol/L 1.12-1.27 L code = 698) PH, BLOOD (BEAKER) (test code = 7.41 1810) [id number] 05:38:00 Test Item Value Reference Range Interpretation Comments PHOSPHORUS (BEAKER) (test code = 3.9 mg/dL 2.3-4.7 604) [id number] 05:38:00 Test Item Value Reference Range Interpretation Comments MAGNESIUM (BEAKER) (test code = 2.2 mg/dL 1.6-2.6 627) BASIC METABOLIC [id number] 05:38:00 Test Item Value Reference Range Interpretation [...] PATIEN TS. CBC W/PLT COUNT & AUTO [id number] 05:09:00 Test Item Value Reference Range Interpretation [...] PERCENT (BEAKER) (test code = 2801) POCT-GLUCOSE [id number] 22:08:00 Test Item Value Reference Range Interpretation Comments POC-GLUCOSE METER 263 mg/dL 70-110 H TESTED AT [place] [address] ([facility]) ([facility] = [facility] 1538) [address] POCT-GLUCOSE [id number] 17:20:00 Test Item Value Reference Range Interpretation Comments POC-GLUCOSE METER 233 mg/dL 70-110 H TESTED AT [place] [address] ([facility]) (test code = [facility] Dylon [facility] 1538) [address] POCT-GLUCOSE [id number] 08:28:00 Test Item Value Reference Range Interpretation Comments POC-GLUCOSE METER 154 mg/dL 70-110 H TESTED AT [place] [address] ([facility]) (test code = [facility] Dylon [facility] 1538) [address] BASIC METABOLIC [id number] 06:41:00 Test Item Value Reference Range Interpretation [...] S NOT APPLICABLE FOR DIALYSIS PATIEN TS. [id number] 06:35:00 Test Item Value Reference Range Interpretation Comments PHOSPHORUS (BEAKER) (test code = 4.1 mg/dL 2.3-4.7 604) [id number] 06:35:00 Test Item Value Reference Range Interpretation Comments MAGNESIUM (BEAKER) (test code = 2.1 mg/dL 1.6-2.6 627) CALCIUM, [id number] 06:22:00 Test Item Value Reference Range Interpretation Comments CALCIUM IONIZED (BEAKER) (test 1.10 mmol/L 1.12-1.27 L code = 698) PH, BLOOD (BEAKER) (test code = 7.38 1810) CBC W/PLT COUNT & AUTO [id number] 06:04:00 Test Item Value Reference Range Interpretation [...] PERCENT (BEAKER) (test code = 2801) POCT-GLUCOSE [id number] 03:44:00 Test Item Value Reference Range Interpretation Comments POC-GLUCOSE METER 220 mg/dL 70-110 H TESTED AT [place] [address] ([facility]) (test code = [facility] 1538) [address] POCT-GLUCOSE [id number] 18:27:00 Test Item Value Reference Range Interpretation Comments POC-GLUCOSE METER 256 mg/dL 70-110 H TESTED AT [place] [address] ([facility]) (test code = [facility] 1538) [address] POCT-GLUCOSE [id number] 15:45:00 Test Item Value Reference Range Interpretation Comments POC-GLUCOSE METER 278 mg/dL 70-110 H TESTED AT [place] [address] ([facility]) (test code = [facility] 1538) [address] POCT-GLUCOSE [id number] 13:22:00 Test Item Value Reference Range Interpretation Comments POC-GLUCOSE METER 278 mg/dL 70-110 H TESTED AT [place] [address] ([facility]) (test code = [facility] 1538) [address] PLATELET AGGREGATION: FUNCTION [id number] 13:18:00 Test Item Value Reference Range Interpretation Comments WEAK ADP 66 % 60-91 RESULT(BEAKER) (test code = 2135) PLATELET FUNCTION 60-100% indicates SCREEN INTERP (BEAKER) normal platelet (test code = 2173) function [id number] Rigoberto Duenas MD (BEAKER) (test code = (electronic signature) 6355) PLATELET COUNT AGG 204 K/CU MM 150-450 (BEAKER) (test code = 2656) POCT-GLUCOSE [id number] 08:27:00 Test Item Value Reference Range Interpretation Comments POC-GLUCOSE METER 189 mg/dL 70-110 H TESTED AT [facility] 6720 ([facility] (test code = JULIANO Dylon [facility] 1538) [address] CALCIUM, [id number] 06:12:00 Test Item Value Reference Range Interpretation Comments CALCIUM IONIZED (BEAKER) (test 1.07 mmol/L 1.12-1.27 L code = 698) PH, BLOOD (BEAKER) (test code = 7.36 1810) [id number] 05:43:00 Test Item Value Reference Range Interpretation Comments PHOSPHORUS (BEAKER) (test code = 3.6 mg/dL 2.3-4.7 604) [id number] 05:43:00 Test Item Value Reference Range Interpretation Comments MAGNESIUM (BEAKER) (test code = 2.1 mg/dL 1.6-2.6 627) BASIC METABOLIC [id number] 05:43:00 Test Item Value Reference Range Interpretation [...] PATIEN TS. CBC W/PLT COUNT & AUTO [id number] 05:05:00 Test Item Value Reference Range Interpretation [...] code = 414) MONOCYTES ABSOLUTE COUNT (AKER) 0.50 K/ L 0.24-0.36 H (test code = 415) EOSINOPHILS ABSOLUTE COUNT 0.27 K/ L 0.04-0.36 ([facility]) (test code = 416) BASOPHILS ABSOLUTE COUNT ([facility]) 0.06 K/ L 0.01-0.08 (test code = 417) IMMATURE GRANULOCYTES-RELATIVE 0 % 0-1 PERCENT ([facility]) (test code = 2801) POCT-GLUCOSE [id number] 21:32:00 Test Item Value Reference Range Interpretation Comments POC-GLUCOSE METER 176 mg/dL 70-110 H TESTED AT [place] [address] ([facility]) ([facility] 1538) [address] POCT-GLUCOSE [id number] 20:27:00 Test Item Value Reference Range Interpretation Comments POC-GLUCOSE METER 161 mg/dL 70-110 H TESTED AT [place] [address] ([facility]) (test code = [facility] Dylon [facility] 1538) [address] POCT-GLUCOSE [id number] 18:23:00 Test Item Value Reference Range Interpretation Comments POC-GLUCOSE METER 185 mg/dL 70-110 H TESTED AT [place] [address] ([facility]) (test code = [facility] Dylon [facility] 1538) [address] POCT-GLUCOSE [id number] 13:26:00 Test Item Value Reference Range Interpretation Comments POC-GLUCOSE METER 282 mg/dL 70-110 H TESTED AT [place] [address] ([facility]) (test code = [facility] Dylon [facility] 1538) [address] URINE [id number] 10:12:00 Test Item Value Reference Range Interpretation Comments CULTURE ([facility]) (test >100,000 col/mL skin code = 1095) todd POCT-GLUCOSE [id number] 09:01:00 Test Item Value Reference Range Interpretation Comments POC-GLUCOSE METER 268 mg/dL 70-110 H TESTED AT [place] [address] ([facility]) (test code = [facility] 1538) [address] CALCIUM, [id number] 05:39:00 Test Item Value Reference Range Interpretation Comments CALCIUM IONIZED ([facility]) (test 0.84 mmol/L 1.12-1.27 L code = 698) PH, BLOOD (BEAKER) (test code = 7.35 1810) BASIC METABOLIC [id number] 05:07:00 Test Item Value Reference Range Interpretation [...] S NOT APPLICABLE FOR DIALYSIS PATIEN TS. [id number] 05:06:00 Test Item Value Reference Range Interpretation Comments PHOSPHORUS (BEAKER) (test code = 3.2 mg/dL 2.3-4.7 604) [id number] 05:06:00 Test Item Value Reference Range Interpretation Comments MAGNESIUM (BEAKER) (test code = 2.3 mg/dL 1.6-2.6 627) CBC W/PLT COUNT & AUTO [id number] 04:42:00 Test Item Value Reference Range Interpretation [...] = 2801) RHEUMATOID FACTOR AB, REFLEX TO [id number] 01:52:00 Test Item Value Reference Range Interpretation Comments RHEUMATOID FACTOR (BEAKER) (test Negative code = 573) POCT-GLUCOSE [id number] 21:57:00 Test Item Value Reference Range Interpretation Comments POC-GLUCOSE METER 105 mg/dL 70-110 TESTED AT [facility] 6720 ([facility]) (test code = JULIANO REYEZ 1538) [address] POCT-GLUCOSE [id number] 18:11:00 Test Item Value Reference Range Interpretation Comments POC-GLUCOSE METER 312 mg/dL 70-110 H Notified Dylon Hassan MD/NATHAN (ROBERT) (test code = AT [facility] 67[address] [place] 1538) [facility] 7703 0 PET, CARDIAC PERFUSION MULTIPLE STUDIES, REST AND [id number] 16:28:00 Reason for exam:->pvcs, known cadFINAL REPORT PROCEDURE: Rest/Stress MYOCARDIAL PERFUSION PET with regadenoson\XA9\ CPT CODE: 31603 INDICATION: Defined extent and severity of known [...] is 23%. LVEF at stress is 36%. Research Project Manager CT images revealed a right pleural [...] pleural and pericardial effusions. 7. No previous [facility] study for comparison. NONINVASIVE RISK STRATIFICATION: The above findings are considered high risk (>3% annual mortality rate) based on the following criteria: - Severe resting left ventricular dysfunction (LVEF 35%)- Stress-induced large perfusion defect (particularly if anterior)(JACC. 2012;59(9):857-81.) Signed: Last Lopez Verified Date/Time: 05/15/2017 16:28:12 Reading Location: [address] ReadingRoom RAD, CHEST, 1 VIEW, NON [id number] 15:56:00Reason for exam:->SOBShould this be performed at the bedside?->YesFINAL REPORT Comparison: 05/14/2017 TECHNIQUE: Single view of the chest FINDINGS: There is a small right pleural effusion with nonspecific airspace disease. This is unchanged. Left lung is grossly clear. Cardiac silhouette is enlarged. IMPRESSION: 1. No acute cardiopulmonary disease. Signed: Sixto Monk MDReport Verified Date/Time: 05/15/2017 15:56:39 Reading Location: [facility] Rad iology Reading Room POCT-GLUCOSE [id number] 12:54:00 Test Item Value Reference Range Interpretation Comments POC-GLUCOSE METER 308 mg/dL 70-110 H Notified Dylon Hassan MD/NATHAN (ROBERT) (test code = AT [facility] [address] [facility]8) [facility] 7703 0 U/S, RENAL WITH [id number] 11:04:00Reason for exam:->arturo, htnShould this be performed [...] Hobbs Verified Date/Time: 05/15/2017 11:04:01 Reading Location: [facility] B1 [id number] Ultrasound Reading Room ANA TITER AND [id number] 10:57:00 Test Item Value Reference Range Interpretation Comments ROGER TITER (BEAKER) (test code = :160 1541) ROGER PATTERN (BEAKER) (test code = [place] 1781) ANTI-NUCLEAR ANTIBODY (ROGER)2017-05-15 10:56:00 Test Item Value Reference Range Interpretation Comments ANTI-NUCLEAR ANTIBODY (ROGER) (BEAKER) Positive Negative A (test code = 418) CALCIUM, [id number] 06:00:00 Test Item Value Reference Range Interpretation Comments CALCIUM IONIZED (BEAKER) (test 1.07 mmol/L 1.12-1.27 L code = 698) PH, BLOOD (BEAKER) (test code = 7.28 1810) HEPATITIS PANEL, [id number] 05:01:00 Test Item Value Reference Range Interpretation Comments HEPATITIS A IGM ANTIBODY (BEAKER) Nonreactive Nonreactive (test code = 498) HEPATITIS B CORE IGM ANTIBODY Nonreactive Nonreactive (BEAKER) (test code = 645) HEPATITIS C ANTIBODY (BEAKER) Nonreactive Nonreactive (test code = 367) HEPATITIS B SURFACE ANTIGEN (2) Nonreactive Nonreactive (BEAKER) (test code = 2585) BASIC METABOLIC [id number] 04:48:00 Test Item Value Reference Range Interpretation [...] NOT APPLICABLE FOR DIALYSIS PATIEN TS. URIC [id number] 04:41:00 Test Item Value Reference Range Interpretation Comments URIC ACID (BEAKER) (test code = 10.3 mg/dL 2.6-7.2 H 773) [id number] 04:41:00 Test Item Value Reference Range Interpretation Comments MAGNESIUM (BEAKER) (test code = 2.0 mg/dL 1.6-2.6 627) [id number] 04:41:00 Test Item Value Reference Range Interpretation Comments PHOSPHORUS (BEAKER) (test code = 4.2 mg/dL 2.3-4.7 604) COMPLEMENT COMPONENT [id number] 04:38:00 Test Item Value Reference Range Interpretation Comments C4 COMPLEMENT (BEAKER) (test code = 28 mg/dL 15-57 394) COMPLEMENT COMPONENT [id number] 04:38:00 Test Item Value Reference Range Interpretation Comments C3 COMPLEMENT (BEAKER) (test code = 103 mg/dL 82-193 393) CBC W/PLT COUNT & AUTO [id number] 04:22:00 Test Item Value Reference Range Interpretation [...] PERCENT (BEAKER) (test code = 2801) POCT-GLUCOSE [id number] 21:46:00 Test Item Value Reference Range Interpretation Comments POC-GLUCOSE METER 173 mg/dL 70-110 H TESTED AT [facility] 67 ([facility]) (test code = [facility] 1538) [address] POCT-GLUCOSE [id number] 21:46:00 Test Item Value Reference Range Interpretation Comments POC-GLUCOSE METER 154 mg/dL 70-110 H TESTED AT [place] [address] ([facility]) (test code = [facility] 1538) [address] POCT-GLUCOSE [id number] 18:17:00 Test Item Value Reference Range Interpretation Comments POC-GLUCOSE METER 175 mg/dL 70-110 H TESTED AT [place] [address] ([facility]) (test code = [facility] 1538) [address] RAD, CHEST, 1 VIEW, NON [id number] 14:56:00Reason for exam:->SOBShould this be performed at the bedside?->YesFINAL REPORT INDICATION: SOB COMPARISON: May 13, 2017 TECHNIQUE: Chest radiograph, single view, portable technique. FINDINGS / IMPRESSION: Enlarged heart shadow, small rightpleural effusion, and pulmonary venous congestion, again demonstrated. No pneumothorax or consolidation. Osseous structures unremarkable. Signed: Satnam Jean MDReport Verified Date/Time: 05/14/2017 14:56:58 Reading Location: [facility] Mammo Reading Room POCT-GLUCOSE [id number] 12:18:00 Test Item Value Reference Range Interpretation Comments POC-GLUCOSE METER 313 mg/dL 70-110 H TESTED AT [facility] 6720 (BEAKER) (test code = [place] 1538) [address] HIV-1 ANTIGEN WITH HIV-1/2 [id number] 12:07:00 Test Item Value Reference Range Interpretation Comments HIV-1 ANTIGEN WITH HIV 1\T\2 Nonreactive Nonreactive ANTIBODY (2) (BEAKER) (test code = 2586) CALCIUM, [id number] 06:37:00 Test Item Value Reference Range Interpretation Comments CALCIUM IONIZED (BEAKER) (test 1.08 mmol/L 1.12-1.27 L code = 698) PH, BLOOD (BEAKER) (test code = 7.25 1810) BASIC METABOLIC [id number] 06:26:00 Test Item Value Reference Range Interpretation [...] pg/mL 0-100 H (test code = 700) [id number] 06:25:00 Test Item Value Reference Range Interpretation Comments PHOSPHORUS (BEAKER) (test code = 5.7 mg/dL 2.3-4.7 H 604) [id number] 06:25:00 Test Item Value Reference Range Interpretation Comments MAGNESIUM (BEAKER) (test code = 1.5 mg/dL 1.6-2.6 L 627) CBC W/PLT COUNT & AUTO [id number] 06:07:00 Test Item Value Reference Range Interpretation [...] PERCENT (BEAKER) (test code = 2801) POCT-GLUCOSE [id number] 22:38:00 Test Item Value Reference Range Interpretation Comments POC-GLUCOSE METER 262 mg/dL 70-110 H TESTED AT [facility] 6720 (BEAKER) (test code = JULIANO Osborne [facility] 1538) [address] PROTEIN, RANDOM [id number] 22:18:00 Test Item Value Reference Range Interpretation Comments PROTEIN, URINE (BEAKER) (test code 641 mg/dL 0-14 H = 1569) CREATININE, RANDOM [id number] 22:07:00 Test Item Value Reference Range Interpretation Comments CREATININE URINE (BEAKER) (test 124.9 mg/dL code = 375) Reference Range: No NormalsURINALYSIS W/ [id number] 22:03:00 Test Item Value Reference Range Interpretation [...] 1585) SOURCE(BEAKER) (test code = Urine, Voided 5074) [id number] 19:49:00 Test Item Value Reference Range Interpretation Comments SODIUM (BEAKER) (test 136 meq/L 136-145 code = 381) POTASSIUM (BEAKER) 5.1 meq/L 3.5-5.1 Specimen slightly (test code = 379) hemolyzed CHLORIDE (BEAKER) 104 meq/L 98-107 (test code = 382) CO2 (BEAKER) (test 25 meq/L 22-29 code = 355) Call if K > 5POCT-GLUCOSE [id number] 11:37:00 Test Item Value Reference Range Interpretation Comments POC-GLUCOSE METER 293 mg/dL 70-110 H TESTED AT [facility] 6720 (BEAKER) (test code = JULIANO Osborne [facility] 1538) [address] RAD, CHEST, 1 VIEW, NON [id number] 10:22:00Reason for exam:->SOBShould this be performed at the bedside?->YesFINAL REPORT Chest one view Discussion: There is cardiomegaly and interstitial congestion. A small right-sided effusion is noted. No pneumothorax. IMPRESSIONS: Suspected CHF. Signed: Jeannette Nava Verified Date/Time: 05/13/2017 10:22:34 Reading Location: [facility] Radiology Reading Room POCT-GLUCOSE METER 2017-05-13 08:34:00 Test Item Value Reference Range Interpretation Comments POC-GLUCOSE METER 178 mg/dL 70-110 H TESTED AT [facility] 6720 (BEAKER) (test code = JULIANO Osborne [facility] 1538) [address] POCT-GLUCOSE [id number] 06:53:00 Test Item Value Reference Range Interpretation Comments POC-GLUCOSE METER 167 mg/dL 70-110 H TESTED AT [facility] 67 (BEAKER) (test code = [facility] Dylon [facility] 1538) [address] [id number] 04:48:00 Test Item Value Reference Range Interpretation Comments BLOOD UREA NITROGEN (BEAKER) (test 36 mg/dL 7-21 H code = 354) [id number] 04:48:00 Test Item Value Reference Range Interpretation Comments SODIUM (BEAKER) (test code = 381) 139 meq/L 136-145 POTASSIUM (BEAKER) (test code = 5.2 meq/L 3.5-5.1 H 379) CHLORIDE (BEAKER) (test code = 382) 109 meq/L 98-107 H CO2 (BEAKER) (test code = 355) 23 meq/L 22-29 [id number] 04:48:00 Test Item Value Reference Range Interpretation [...] WBC 0-0 (BEAKER) (test code = 413) [id number] 23:29:00 Test Item Value Reference Range Interpretation Comments ACTIVATED CLOTTING TIME 136 sec TEST ED AT [place] [address] ([facility]) (test code = JULIANO Osborne [place] [address]) [address] [id number] 20:13:00 Test Item Value Reference Range Interpretation Comments ACTIVATED CLOTTING TIME 175 sec TEST ED AT [place] [address] ([facility]) (test code = [facility] Dylon [place] [address]) [address] [id number] 18:36:00 Test Item Value Reference Range Interpretation Comments ACTIVATED CLOTTING TIME 202 sec TEST ED AT [place] [address] ([facility]) (test code = JULIANO Osborne [place] [address]) [address] [id number] 18:03:00 Test Item Value Reference Range Interpretation Comments ACTIVATED CLOTTING TIME 208 sec TEST ED AT [place] [address] ([facility]) (test code = [facility] [place] [address]) [address] BASIC METABOLIC [id number] 11:57:00 Test Item Value Reference Range Interpretation [...] NOT APPLICABLE FOR DIALYSIS PATIEN TS. PROTHROMBIN [id number] 11:15:00 Test Item Value Reference Range Interpretation [...] if on CoumadinCBC W/PLT COUNT & AUTO [id number] 11:01:00 Test Item Value Reference Range Interpretation [...] PERCENT (BEAKER) (test code = 2801) POCT-GLUCOSE [id number] 12:35:00 Test Item Value Reference Range Interpretation Comments POC-GLUCOSE METER 249 mg/dL 70-110 H TESTED AT [facility] 6720 (BEAKER) (test code = [place] 1538) [address] POCT-GLUCOSE [id number] 09:10:00 Test Item Value Reference Range Interpretation Comments POC-GLUCOSE METER 155 mg/dL 70-110 H TESTED AT [facility] 6720 (BEAKER) (test code = [place] 1538) [address] BASIC METABOLIC [id number] 05:39:00 Test Item Value Reference Range Interpretation [...] S NOT APPLICABLE FOR DIALYSIS PATIEN TS. [id number] 05:27:00 Test Item Value Reference Range Interpretation Comments PHOSPHORUS (BEAKER) (test code = 5.0 mg/dL 2.3-4.7 H 604) [id number] 05:27:00 Test Item Value Reference Range Interpretation Comments MAGNESIUM (BEAKER) (test code = 1.6 mg/dL 1.6-2.6 627) POCT-GLUCOSE [id number] 05:25:00 Test Item Value Reference Range Interpretation Comments POC-GLUCOSE METER 144 mg/dL 70-110 H TESTED AT [place] [address] ([facility]) (test code = [facility] 1538) [address] PROTHROMBIN [id number] 04:58:00 Test Item Value Reference Range Interpretation Comments PROTIME (BEAKER) (test code = 14.2 seconds 11.7-14.7 759) INR (BEAKER) (test code = 370) 1.1 <=5.9 RECOMMENDED COUMADIN/WARFARIN INR THERAPY RANGESSTANDARD DOSE: 2.0 - 3.0 Includes: PROPHYLAXIS forvenous thrombosis, systemic embolization; TREATMENT for venous thrombosis and/or pulmonary embolus.HIGH RISK: Target INR is 2.5-3.5 for patients with mechanical heart valves.POCT-GLUCOSE [id number] 23:55:00 Test Item Value Reference Range Interpretation Comments POC-GLUCOSE METER 86 mg/dL 70-110 TESTED AT [place] [address] ([facility]) (test code = [facility] [address] 1538) B-TYPE NATRIURETIC FACTOR (BNP)2017-04-22 18:13:00 Test Item Value Reference Range Interpretation Comments B-TYPE NATRIURETIC PEPTIDE 1203 pg/mL 0-100 H (BEAKER) (test code = 700) POCT-GLUCOSE [id number] 17:36:00 Test Item Value Reference Range Interpretation Comments POC-GLUCOSE METER 259 mg/dL 70-110 H TESTED AT [place] [address] ([facility]) (test code = JULIANO Osborne [place] 1538) [address] HEMOGLOBIN [id number] 14:24:00 Test Item Value Reference Range Interpretation Comments HEMOGLOBIN A1C (BEAKER) (test code = 10.5 % 4.3-6.1 H 368) POCT-GLUCOSE [id number] 12:34:00 Test Item Value Reference Range Interpretation Comments POC-GLUCOSE METER 207 mg/dL 70-110 H TESTED AT [place] [address] ([facility]) (test code = JULIANO Osborne [place] 1538) [address] [id number] 07:53:00 Test Item Value Reference Range Interpretation Comments PHOSPHORUS (BEAKER) (test code = 3.9 mg/dL 2.3-4.7 604) [id number] 07:53:00 Test Item Value Reference Range Interpretation Comments MAGNESIUM (BEAKER) (test code = 1.6 mg/dL 1.6-2.6 627) BASIC METABOLIC [id number] 07:53:00 Test Item Value Reference Range Interpretation [...] NOT APPLICABLE FOR DIALYSIS PATIEN TS. TROPONIN [id number] 07:29:00 Test Item Value Reference Range Interpretation [...] acidosis, acute neurological disease, and persistent tachyarrhythmia.PROTHROMBIN [id number] 07:01:00 Test Item Value Reference Range Interpretation Comments PROTIME (ROBERT) (test code = 13.8 seconds 11.7-14.7 759) INR ([facility]) (test code = 370) 1.1 <=5.9 RECOMMENDED COUMADIN/WARFARIN INR THERAPY RANGESSTANDARD DOSE: 2.0 - 3.0 Includes: PROPHYLAXIS forvenous thrombosis, systemic embolization; TREATMENT for venous thrombosis and/or pulmonary embolus.HIGH RISK: Target INR is 2.5-3.5 for patients with mechanical heart valves.POCT-GLUCOSE [id number] 06:28:00 Test Item Value Reference Range Interpretation Comments POC-GLUCOSE METER 198 mg/dL 70-110 H TESTED AT [facility] 6720 ([facility]) (test code = [place] 1538) [address] CREATINE KINASE (CK), TOTAL AND [id number] 00:49:00 Test Item Value Reference Range Interpretation Comments CREATINE KINASE TOTAL (ROBERT) 69 U/L 29-200 (test code = 380) CREATINE KINASE-MB (ROBERT) (test 4.3 ng/mL 0.0-6.6 code = 750) CREATINE KINASE-MB INDEX (ROBERT) 6.2 % (test code = 395) CK-MB Reference Range:<6.7 Normal6.7-10.0 Borderline>10.0 AbnormalTROPONIN [id number] 00:49:00 Test Item Value Reference Range Interpretation [...] acidosis, acute neurological disease, and persistent tachyarrhythmia.POCT-GLUCOSE [id number] 20:44:00 Test Item Value Reference Range Interpretation Comments POC-GLUCOSE METER 269 mg/dL 70-110 H TESTED AT [facility] 67 (ROBERT) (test code = JULIANO REYEZ 1538) [address]
[2019-12-05] MEDS ORDERED: LIDOCAINE 1% W/EPI 1:100,000 MDV 20 ML VIAL ONE (11:06)
[2019-12-05 11:28] LABS: Absolute Lymphocytes (CBC) 1.8 K/uL (0.7-4.9); Basophils % 1.1 % (0-1.3); Hematocrit 15.9 % (36.0-45.0); Lymphocytes % 29.9 % (15.3-44.8); MPV 8.6 fL (7.6-11.3); RBC Red Blood Cell Count 1.86 M/uL (3.86-4.86)
[2019-12-05 11:31] LABS: Protime INR 1.36
[2019-12-05 11:46] LABS: Albumin 1.7 g/dL (3.4-5.0); Bilirubin Direct 0.2 mg/dL (0-0.2); Bilirubin Total 0.4 mg/dL (0.2-1.0); Potassium 3.3 mmol/L (3.5-5.1)
[2019-12-05] MEDS ORDERED: NA CHLORIDE 0.9% 1,000 ML ONE (12:02)
--- NOTE | 2019-12-05 12:19 | RAD REPORT ---
EXAM DESCRIPTION: CT - Head C Spine Cap Wo Con - 12/05/2019 11:53 am TECHNIQUE: Computed axial tomography of the head and cervical spine was obtained. Coronal and sagitt al reconstruction was performed Computed axial tomography of the chest, abdomen and pelvis was obtained. Contrast was not requested. All CT scans are performed using dose optimization technique as appropriate and may include automated exposure control or mA/KV adjustment according to patient size. CLINICAL HISTORY: Head and neck injury with chest and abdominal pain status post fall COMPARISON: June 2019 FINDINGS: An intracranial bleed is not seen. The ventricles are normal in caliber. An extra-axial fluid collection is not noted. . Fluid within the sinuses/mastoids is not seen. A cervical fracture is not seen. No dislocation is noted. Herniations involve several levels involvin g mid and distal cervical spine The evaluation of mediastinum, wong, vessels, solid organs and bowel are limited secondary to the lac k of contrast administration. A mediastinal hematoma is not noted. Moderate right pleural effusion mildly enlarged the prior exam. Small left pleural effusion. Minimal tree-in-bud opacities left upper lobe. No pulmonary contusion. S ubacute fracture upper right rib. The liver,spleen, pancreas, adrenals,kidneys and bladder do not demonstrate a traumatic injury. Diffuse edema within subcutaneous tissues. Atherosclerotic disease. Moderate ascites without significant change. Renal osteodystrophy suspected IMPRESSION: 1. No acute intracranial abnormality is seen. 2. A cervical fracture is not visualized. If the patient continues have symptoms to suggest intracran ial/spinal cord pathology MRI be recommended 3. No acute traumatic abnormality involving the chest/abdomen/pelvis.
[2019-12-05] MEDS ORDERED: NA CHLORIDE 0.9% 200 ML IV ONE (12:22)
--- NOTE | 2019-12-05 12:33 | RAD REPORT ---
EXAM DESCRIPTION: CT - Maxillofacial Wo Con - 12/05/2019 11:53 am CLINICAL HISTORY: Facial injury status post fall. Facial pain TECHNIQUE: Computed axial tomography of the face was obtained. Coronal and sagittal reconstruction w as performed. All CT scans are performed using dose optimization technique as appropriate and may include automated exposure control or mA/KV adjustment according to patient size. FINDINGS: A fracture is not seen. A TMJ dislocation is not noted. The globes are intact. Fluid within the sinuses is not seen. IMPRESSION: Negative for a facial fracture.
[2019-12-05] MEDS ORDERED: FENTANYL CITR 100 MCG/2 ML ONE (12:38)
[2019-12-05 12:42] LABS: Anisocytosis SLIGHT; Basophilic Stippling 1+; Blood Morphology Comment NOTED (NOT SEEN); Platelet Estimate DECR
[2019-12-05] MEDS ORDERED: GLUCAGON 1 MG/VIAL ONE (12:52)
[2019-12-05] MEDS ORDERED: ATROPINE SULF 1 MG/10 ML SYR IV ONE (12:52)
--- NOTE | 2019-12-05 15:16 | ER ---
Nurse's Notes [facility] Name: Christy Priest Age: 64 yrs Sex: Female : 1955 Arrival Date: 12/05/2019 Time: 11:00 Bed 4 Private MD: Diagnosis: Non-ST elevation (NSTEMI) myocardial infarction;Fall (on)(from) sidewalk curb;Acute post-traumatic headache;Anemia in chronic diseases classified elsewhere;Bradycardia, unspecified Presentation: 12/04 11:00 Chief complaint: EMS states: Pt fell out of wheelchair onto ground face first, jl7 laceration to forehead, avulsion to bridge of nose, bandage to left forearm. Care prior to arrival: None. Mechanism of Injury: Fall out of chair. 11:00 Acuity: DENNY 2 7 11:00 Method Of Arrival: EMS: [facility] 11:00 Trauma event details: Injury occurred in the [facility], Injury occurred: at [facility] home. Injury occurred: December 05, 2019 Injury occurred at: 10:15. 11:00 Coronavirus screen: Client denies travel out of the [place] in the last 14 days. At this jl7 time, the client does not indicate any symptoms associated with coronavirus-19. Ebola Screen: No symptoms or risks identified at this time. Initial Sepsis Screen: Does the patient meet any 2 criteria? Mean Arterial Pressure (MAP) < 65. Does the patient have a suspected source of infection? No. Patient's initial sepsis screen is negative. Risk Assessment: Do you want to hurt yourself or someone else? Patient reports no desire to harm self or others. Onset of symptoms was December 05, 2019. Trauma Activation: Alert Physician: ED Physician; Name: Nicola; Notified At: 10:52; Arrived At: 10:52 Physician: General Surgeon; Name: ; Notified At: 10:52; Arrived At: Physician: Radiology; Name: Shamika; Notified At: 10:52; Arrived At: 10:55 Physician: Respiratory; Name: ; Notified At: 10:52; Arrived At: Physician: Lab; Name: ; Notified At: 10:52; Arrived At: Historical: - Allergies: 11:34 Augmentin; jl7 11:34 basil; jl7 11:34 Clindamycin; jl7 11:34 HYDROCODONE; jl7 11:34 Morphine; jl7 11:34 Nitroglycerin; jl7 11:34 Tramadol HCl; jl7 11:34 Trazodone; jl7 11:34 Vancomycin; jl7 11:34 Vicodin; jl7 - Home Meds: 11:34 Plavix Oral [Active]; jl7 - PMHx: 11:34 CHF; COPD; Diabetes - IDDM; ESRD; High Cholesterol; Hypertension; triple bypass; jl7 uterine cancer; - Immunization history:: Adult Immunizations unknown. - Social history:: Patient/guardian denies using alcohol, street drugs, The patient lives with family, Smoking status: unknown. - Immunization history: Last tetanus immunization: unknown. - Family history:: not pertinent. Screenin:00 Abuse screen: Denies threats or abuse. Denies injuries from another. Tuberculosis jl7 screening: No symptoms or risk factors identified. 11:00 Nutritional screening: No deficits noted. Fall Risk Total Merlos Fall Scale indicates jl7 High Risk Score (45 or more points). Fall prevention measures have been instituted. Side Rails Up X 2 Placed Close to Nursing Station Frequent Obs/Assessments Occuring Family Present and informed to notify staff if the need to leave the bedside As available patient and family educated on Fall Prevention Program and Strategies. Primary Survey: 11:00 Uncontrolled hemorrhage is observed, assessment has been re-ordered to <C> ABC. jl7 Breathing/Chest: Respiratory pattern: regular, Respiratory effort: spontaneous, unlabored, Chest inspection: symmetrical rise and fall of the chest. Circulation: Heart tones present. Skin color: pale, Skin temperature: cool. Disability Alert. Exposure/Environment: All clothing and personal items were removed. Forensic evidence collection is not deemed to be indicated at this time. Items placed in patient belonging bag. There is evidence of uncontrolled external hemorrhage. Provider notified immediately. Methods to control bleeding applied. Obvious injury(ies) are noted at this time: laceration to forehead A warming method has been applied: A warm blanket has been provided to the patient. 11:30 Reassessment Airway Airway Patent Breathing/Chest Respiratory pattern Regular jl7 Respiratory effort Spontaneous Unlabored Chest inspection Symmetrical Circulation Color Pale Temperature Cool Disability Alert. Secondary Survey: 11:00 HEENT: Face Other superficial avulsion noted to bridge of nose, swelling and bleeding jl7 noted to bottom lip Nose: bleeding noted to bilateral nares. Musculoskeletal: Range of motion: intact in all extremities, Swelling present in right hand bandage to right forearm, pt reports injury from yesterday bandage to left forearm, injury from today, bleeding controlled. Assessment: 11:00 General: Appears in no apparent distress. uncomfortable, Behavior is calm, cooperative, jl7 appropriate for age. Pain: Complains of pain in bridge of nose Pain currently is 8 out of 10 on a pain scale. Neuro: Level of Consciousness is awake, alert, obeys commands, Oriented to person, place, time, situation. EENT: Nares with bleeding noted. Cardiovascular: Denies chest pain, Patient's skin is warm and dry. Respiratory: Airway is patent Respiratory effort is even, unlabored, Respiratory pattern is regular, symmetrical. GI: Abdomen is round. Derm: Skin is dry, Skin is pale, Skin temperature is cool. 12:04 Reassessment: Pt returned from CT. jl7 12:33 Reassessment: Pt c/o chest pressure, radiates to back, rated 12/10, repeat EKG done, jl7 ERD notified, see MAR for orders. 16:30 Reassessment: Pt's daughter called the ER and states pt is currently getting aa5 Piperacillin/tazobactam IV Q 8 hrs due today at 1700 and Ceftazidime Q 24 hrs due tomorrow morning. Pt's daughter also states "she is also getting wound care every day to her feet and Dr. Nettles (hospitalist) prescribed her 2 new medicines when he discharged her from the hospital and I think one of them is making her hallucinate a little bit, because she thinks people are touching her when there is nobody there". Dr. Nettles (Hospitalist) at bedside and notified of pt's daughter statements and concerns. . 16:30 Reassessment: Surgicel applied to bridge of nose, lip and chin. jl7 Vital Signs: 11:00 BP 90 / 48; Pulse 49; Resp 15 S; Temp 97.9(A); Pulse Ox 93% on R/A; jl7 12:15 BP 82 / 47; Pulse 47; Resp 14; Pulse Ox 99% 2 lpm ; jl7 12:30 BP 90 / 47; Pulse 46; Resp 13 S; Pulse Ox 100% on 2 lpm NC; Pain 10/10; jl7 13:30 BP 90 / 52; Pulse 52; Resp 17 S; Pulse Ox 99% on R/A; ca1 14:30 BP 99 / 49; Pulse 51; Resp 14 S; Pulse Ox 95% on R/A; jl7 15:50 BP 93 / 54; Pulse 49; Resp 14 S; Pulse Ox 97% on R/A; jl7 16:30 BP 94 / 55; Pulse 50; Resp 16; Pulse Ox 95% on R/A; jl7 17:10 BP 99 / 63; Pulse 50; Resp 14 S; Pulse Ox 96% on 2 lpm NC; jl7 Corby Coma Score: 11:00 Eye Response: spontaneous(4). Verbal Response: oriented(5). Motor Response: obeys jl7 commands(6). Total: 15. Trauma Score (Adult): 11:00 Eye Response: spontaneous(1); Verbal Response: oriented(1); Motor Response: obeys jl7 commands(2); Systolic BP: > 89 mm Hg(4); Respiratory Rate: 10 to 29 per min(4); [place] Score: 15; Trauma Score: 12 ED Course: 11:00 Patient arrived in ED. aa5 11:00 Annmarie Petersen MD is Attending Physician. ma2 11:00 Thermoregulation: warm blanket given to patient. jl7 11:00 Arm band placed on right wrist. jl7 11:03 Jl Wadsworth RN is Primary Nurse. jl7 11:14 Accessed PICC line. Blood collected. using per hospital protocol. Clean \\T\\ dry. Dressing jl7 intact. Good blood return. Flushes easily. 11:20 Oxygen administration via nasal cannula \\T\\ 2L/min Response to oxygen therapy: symptoms jl7 improved. 11:32 Notified ED physician of a critical lab result(s). Hemoglobin 5.1. aa5 11:33 Triage completed. jl7 11:39 EKG done, by ED staff, reviewed by Annmarie Petersen MD. 5 11:39 Patient has correct armband on for positive identification. Bed in low position. Call mh5 light in reach. Side rails up X2. Warm blanket given. electrical inspector on. Pulse ox on. NIBP on. 11:53 Head C Spine Cap Wo Con In Process Unspecified. EDMS 11:54 Maxillofacial Wo Con In Process Unspecified. EDMS 14:15 Assist provider with laceration repair on forehead that was between 7.6 to 12.5 cm jl7 using sutures. Set up tray. Performed by Annmarie Petersen MD Dressed with Kerlix, Patient tolerated well. 15:15 Oleksandr Nettles MD is Hospitalizing Provider. ma2 17:20 Patient admitted, IV remains in place. intact, No redness/swelling at site. jl7 Administered Medications: 12:15 Drug: NS 0.9% 1000 ml Route: IV; Rate: 1000 ml; Site: PICC; jl7 13:15 Follow up: Response: No adverse reaction; IV Status: Completed infusion; IV Intake: jl7 1000ml 12:30 Drug: fentaNYL (PF) 25 mcg Route: IVP; Site: PICC; jl7 12:45 Follow up: Response: No adverse reaction; Pain is decreased jl7 12:37 Drug: Glucagon 1 mg Route: IVP; Site: PICC; jl7 12:45 Follow up: Response: No adverse reaction; No change in condition jl7 12:39 Drug: Atropine 0.5 mg Route: IVP; Site: PICC; jl7 12:45 Follow up: Response: No adverse reaction; No change in condition jl7 14:15 Drug: fentaNYL (PF) 25 mcg Route: IVP; Site: PICC; jl7 14:30 Follow up: Response: No adverse reaction; Pain is decreased jl7 17:58 Not Given (pt admitted): Piperacillin-Tazobactam 3.375 grams IVPB once over 60 mins; jl7 (mix in NS 100 mL) Intake: 13:15 IV: 1000ml; Total: 1000ml. jl7 17:44 IV: 1000ml; Total: 2000ml. jl7 Output: 17:44 Urine: 0ml; Total: 0ml. jl7 Outcome: 15:16 Decision to Hospitalize by Provider. ma2 17:20 Admitted to Tele accompanied by tech, via stretcher, room 231, with chart, Report jl7 called to GUILHERME Belle 17:20 Condition: stable jl7 17:20 Discharge instructions given to patient, Instructed on the need for admit, Demonstrated understanding of instructions. 17:20 Patient's length of stay in the Emergency Department was greater than 2 hours. jl7 Patient's length of stay was extended due to staffing issues within the emergency department. 18:13 Patient left the ED. eb Signatures: Dispatcher [employer] EDMS Pooja Richardson, GUILHERME RN Jovita Vaz Jl Ramos RN RN jl7 Annmarie Petersen MD MD ma2 Rocio Nguyen Cheryl, RN RN ca1 Corrections: (The following items were deleted from the chart) 13:42 13:41 BP 90 / 52; Pulse 52bpm; Resp 17bpm; Spontaneous; Pulse Ox 99% RA; ca1 ca1 16:34 14:30 BP 99 / 49; Pulse 51bpm; Resp 11bpm; Spontaneous; Pulse Ox 95% RA; jl7 jl7 16:34 15:50 BP 93 / 54; Pulse 49bpm; Resp 11bpm; Spontaneous; Pulse Ox 97% RA; 7 7 17:33 17:31 fentaNYL (PF) 25 mcg IVP in PICC jl7 7 18:33 17:20 No provider procedures requiring assistance completed. 7 7
--- NOTE | 2019-12-05 15:16 | EDPHYS ---
Physician Documentation [facility] Name: Christy Priest Age: 64 yrs Sex: Female : 1955 Arrival Date: 12/05/2019 Time: 11:00 Bed 4 Private MD: ED Physician Annmarie Petersen HPI: 12/04 15:09 This 64 yrs old Female presents to ER via EMS with complaints of Fall Injury. ma2 15:09 This 64 yrs old Female presents to ER via EMS with complaints of Fall Injury. ma2 15:09 Details of fall: The patient fell from an upright position. Onset: The symptoms/episode ma2 began/occurred gradually, 1 day(s) ago. Onset: The symptoms/episode began/occurred suddenly, 1 day(s) ago. Associated injuries: The patient sustained injury to the head. Severity of symptoms: At their worst the symptoms were mild, in the emergency department the symptoms are unchanged. The patient has not experienced similar symptoms in the past. Historical: - Allergies: 11:34 Augmentin; jl7 11:34 basil; jl7 11:34 Clindamycin; jl7 11:34 HYDROCODONE; jl7 11:34 Morphine; jl7 11:34 Nitroglycerin; jl7 11:34 Tramadol HCl; jl7 11:34 Trazodone; jl7 11:34 Vancomycin; jl7 11:34 Vicodin; jl7 - Home Meds: 11:34 Plavix Oral [Active]; jl7 - PMHx: 11:34 CHF; COPD; Diabetes - IDDM; ESRD; High Cholesterol; Hypertension; triple bypass; jl7 uterine cancer; - Immunization history:: Adult Immunizations unknown. - Social history:: Patient/guardian denies using alcohol, street drugs, The patient lives with family, Smoking status: unknown. - Immunization history: Last tetanus immunization: unknown. - Family history:: not pertinent. ROS: 15:09 Constitutional: Negative for fever, chills, and weight loss. ma2 15:09 All other systems are negative. Exam: 15:09 Constitutional: This is a well developed, well nourished patient who is awake, alert, ma2 and in no acute distress. Head/Face: Normocephalic, atraumatic. Eyes: Pupils equal round and reactive to light, extra-ocular motions intact. Lids and lashes normal. Conjunctiva and sclera are non-icteric and not injected. Cornea within normal limits. Periorbital areas with no swelling, redness, or edema. ENT: laceration of forehead with skin loss and bleeding.. abrasions to faceNares patent. No nasal discharge, no septal abnormalities noted. Tympanic membranes are normal and external auditory canals are clear. Oropharynx with no redness, swelling, or masses, exudates, or evidence of obstruction, uvula midline. Mucous membranes moist. Neck: Trachea midline, no thyromegaly or masses palpated, and no cervical lymphadenopathy. Supple, full range of motion without nuchal rigidity, or vertebral point tenderness. No Meningismus. Chest/axilla: has left upper arm central line Normal chest wall appearance and motion. Nontender with no deformity. No lesions are appreciated. Cardiovascular: Regular rate and rhythm with a normal S1 and S2. No gallops, murmurs, or rubs. Normal PMI, no JVD. No pulse deficits. Respiratory: Lungs have equal breath sounds bilaterally, clear to auscultation and percussion. No rales, rhonchi or wheezes noted. No increased work of breathing, no retractions or nasal flaring. Abdomen/GI: Soft, non-tender, with normal bowel sounds. No distension or tympany. No guarding or rebound. No evidence of tenderness throughout. Back: No spinal tenderness. No costovertebral tenderness. Full range of motion. Skin: Warm, dry with normal turgor. Normal color with no rashes, no lesions, and no evidence of cellulitis. MS/ Extremity: Pulses equal, no cyanosis. Neurovascular intact. Full, normal range of motion. Neuro: Awake and alert, GCS 15, oriented to person, place, time, and situation. Cranial nerves II-XII grossly intact. Motor strength 5/5 in all extremities. Sensory grossly intact. Cerebellar exam normal. Normal gait. Vital Signs: 11:00 BP 90 / 48; Pulse 49; Resp 15 S; Temp 97.9(A); Pulse Ox 93% on R/A; jl7 12:15 BP 82 / 47; Pulse 47; Resp 14; Pulse Ox 99% 2 lpm ; jl7 12:30 BP 90 / 47; Pulse 46; Resp 13 S; Pulse Ox 100% on 2 lpm NC; Pain 10/10; jl7 13:30 BP 90 / 52; Pulse 52; Resp 17 S; Pulse Ox 99% on R/A; ca1 14:30 BP 99 / 49; Pulse 51; Resp 14 S; Pulse Ox 95% on R/A; jl7 15:50 BP 93 / 54; Pulse 49; Resp 14 S; Pulse Ox 97% on R/A; jl7 16:30 BP 94 / 55; Pulse 50; Resp 16; Pulse Ox 95% on R/A; jl7 17:10 BP 99 / 63; Pulse 50; Resp 14 S; Pulse Ox 96% on 2 lpm NC; jl7 Corby Coma Score: 11:00 Eye Response: spontaneous(4). Verbal Response: oriented(5). Motor Response: obeys jl7 commands(6). Total: 15. Trauma Score (Adult): 11:00 Eye Response: spontaneous(1); Verbal Response: oriented(1); Motor Response: obeys jl7 commands(2); Systolic BP: > 89 mm Hg(4); Respiratory Rate: 10 to 29 per min(4); [place] Score: 15; Trauma Score: 12 Laceration: 15:09 Wound Repair of 5cm ( 2.0in ) subcutaneous laceration to face. Irregularly shaped.. ma2 Skin/tissue flap noted.. Profuse bleeding noted.. Distal neuro/vascular/tendon intact. Anesthesia: Local anesthetic administered with 10 mls of 1% lidocaine w/ Epi, Local anesthetic administered with 1% lidocaine. Wound prep: Moderate cleansing. Skin closed with 4 3-0 Prolene using simple sutures and sterile technique. Dressed with Bacitracin, 4x4's. Patient tolerated well. MDM: 11:00 Patient medically screened. ma2 15:09 Differential diagnosis: abrasion, closed head injury, contusion, fracture, sprain, ma2 strain. Data reviewed: vital signs, nurses notes. Counseling: I had a detailed discussion with the patient and/or guardian regarding: the historical points, exam findings, and any diagnostic results supporting the discharge/admit diagnosis, the presence of at least one elevated blood pressure reading (>120/80) during this emergency department visit, the need for outpatient follow up. Response to treatment: the patient's symptoms have markedly improved after treatment. 12/04 11:03 Order name: Amylase, Serum wy2 12/04 11:03 Order name: Basic Metabolic Panel wy2 12/04 11:03 Order name: CBC with Diff; Complete Time: 14:43 wy2 12/04 11:03 Order name: ETOH Level; Complete Time: 14:43 wy2 12/04 11:03 Order name: Hepatic Function; Complete Time: 14:43 wy2 12/04 11:03 Order name: Lipase; Complete Time: 14:43 wy2 12/04 11:03 Order name: Type And Screen wy2 12/04 11:03 Order name: Amylase; Complete Time: 14:43 EDMS 12/04 11:03 Order name: Basic Metabolic Panel; Complete Time: 14:43 EDMS 12/04 11:04 Order name: PT-INR; Complete Time: 14:43 wy2 12/04 11:23 Order name: Troponin I; Complete Time: 14:43 wy2 12/04 12:19 Order name: Packed RBC Leukored [facility] 12/04 12:42 Order name: Manual Differential; Complete Time: 14:43 EDAZ 12/04 15:06 Order name: Digoxin [facility] 12/04 11:03 Order name: EKG; Complete Time: 11:04 wy2 12/04 11:03 Order name: EKG - Nurse/Tech; Complete Time: 11:20 wy2 12/04 11:03 Order name: IV Saline Lock; Complete Time: 12:31 wy2 12/04 11:03 Order name: Labs collected and sent; Complete Time: 12:31 [facility] 12/04 11:03 Order name: NPO; Complete Time: 12:31 [facility] 12/04 11:28 Order name: Maxillofacial Wo Con; Complete Time: 14:43 EDAZ 12/04 11:53 Order name: Head C Spine Cap Wo Con; Complete Time: 14:43 EDMS 12/04 16:41 Order name: CONS Physician Consult EDAZ 12/04 11:03 Order name: O2 Per Protocol; Complete Time: 12:31 wy2 12/04 11:03 Order name: O2 Sat Monitoring; Complete Time: 12:32 ma2 Administered Medications: 12:15 Drug: NS 0.9% 1000 ml Route: IV; Rate: 1000 ml; Site: PICC; [facility] 13:15 Follow up: Response: No adverse reaction; IV Status: Completed infusion; IV Intake: jl7 1000ml 12:30 Drug: fentaNYL (PF) 25 mcg Route: IVP; Site: PICC; jl7 12:45 Follow up: Response: No adverse reaction; Pain is decreased jl7 12:37 Drug: Glucagon 1 mg Route: IVP; Site: PICC; jl7 12:45 Follow up: Response: No adverse reaction; No change in condition jl7 12:39 Drug: Atropine 0.5 mg Route: IVP; Site: PICC; jl7 12:45 Follow up: Response: No adverse reaction; No change in condition jl7 14:15 Drug: fentaNYL (PF) 25 mcg Route: IVP; Site: PICC; jl7 14:30 Follow up: Response: No adverse reaction; Pain is decreased jl7 17:58 Not Given (pt admitted): Piperacillin-Tazobactam 3.375 grams IVPB once over 60 mins; jl7 (mix in NS 100 mL) Disposition: 12/05/19 15:16 Hospitalization ordered by Oleksandr Nettles for Inpatient Admission. Preliminary diagnosis are Non-ST elevation (NSTEMI) myocardial infarction, Fall (on)(from) sidewalk curb, Acute post-traumatic headache, Anemia in chronic diseases classified elsewhere, Bradycardia, unspecified. - Bed requested for Telemetry/MedSurg (Inpatient). - Status is Inpatient Admission. eb - Condition is Stable. - Problem is new. - Symptoms are unchanged. Signatures: Dispatcher [employer] EDMS Pooja Richardson RN RN aa5 Jl Wadsworth RN RN jl7 Annmarie Petersen MD MD ma2 Rocio Nguyen Corrections: (The following items were deleted from the chart) 11:28 11:04 Maxillofacial W/Wo+CT.RAD.BRZ ordered. EDMS EDMS 11:52 11:03 Head C Spine CAP W Con+CT.RAD.BRZ ordered. EDMS EDMS 16:57 15:16 Hospitalization Ordered by Oleksandr Nettles MD for Inpatient Admission. Preliminary aa5 diagnosis is Non-ST elevation (NSTEMI) myocardial infarction; Fall (on)(from) sidewalk curb; Acute post-traumatic headache; Anemia in chronic diseases classified elsewhere; Bradycardia, unspecified. Bed requested for Telemetry/MedSurg (Inpatient). Status is Inpatient Admission. Condition is Stable. Problem is new. Symptoms are unchanged. ma2 18:13 16:57 12/05/2019 15:16 Hospitalization Ordered by Oleksandr Nettles MD for Inpatient eb Admission. Preliminary diagnosis is Non-ST elevation (NSTEMI) myocardial infarction; Fall (on)(from) sidewalk curb; Acute post-traumatic headache; Anemia in chronic diseases classified elsewhere; Bradycardia, unspecified. Bed requested for Telemetry/MedSurg (Inpatient). Status is Inpatient Admission. Condition is Stable. Problem is new. Symptoms are unchanged. aa5
--- NOTE | 2019-12-05 17:05 | P.HP ---
Certification for Inpatient Patient admitted to: Observation With expected LOS: <2 Midnights Patient will require the following post-hospital care: Home Health Services Practitioner: I am a practitioner with admitting privileges, knowledge of patient current condition, hospital course, and medical plan of care. Services: Services provided to patient in accordance with Admission requirements found in Title 42 Section 412.3 of the Code of Federal Regulations Patient History Date of Service: 12/05/19 Reason for admission: Fall, acute blood loss anemia, chest pain History of Present Illness: 64-year-old female, PMH: Chronic diastolic CHF, DM2, HTN, HLD, CKD 4, osteomyelitis, HTN, CAD status post CABG x4, COPD who was brought to the ED after a mechanical fall. Patient states she was in her wheelchair trying again to her swimming pole at her apartment complex. She states some kids were in her way on the sidewalk and would not move, so she tried to go around them. This is when she went over the curb that she did not see. She fell forward on her face and chest onto concrete with some loose gravel. She reports she bled a lot. Of note, patient was recently discharged from this hospital (11/18-12/01) when she was being treated for acute on chronic diastolic CHF with anasarca. She reports she was in her usual state of health up until this fall. She was feeling well and taking her medications as prescribed. In prior to this fall she reports no vision changes, no shortness of breath, no chest pain/palpitations, no abdominal pain, no rashes or new lesions. After the fall, she reports facial pain, neck pain, chest pain, and pain of her bilateral arms. A CT head/neck/chest/abdomen/pelvis was performed: No acute intracranial abnormality. A cervical fracture is not visualized. No acute traumatic abnormality involving the chest/abdomen/pelvis. Moderate right pleural effusion mildly enlarged from prior exam, small left pleural effusion. Moderate ascites without significant change. Diffuse edema within subcutaneous tissues. CT maxillofacial: Negative for facial fracture In the ED, blood work was notable for hemoglobin of 5.1, INR: 1.36, creatinine: 2.68, troponin: 0.06. EKG without any signs of acute ischemic changes ED applied Surgicel to facial lacerations. Allergies morphine Allergy (Severe, Verified 11/19/19 05:42) Anaphylaxis vancomycin Allergy (Intermediate, Verified 11/23/19 08:17) Shortness of breath basil Allergy (Verified 11/19/19 05:42) Nausea/Vomiting tramadol Allergy (Verified 11/19/19 05:42) Nausea/Vomiting trazodone Allergy (Verified 11/19/19 05:42) Nausea/Vomiting nitroglycerin Adverse Reaction (Mild, Verified 11/19/19 05:42) Nausea/Vomiting Home Medications: Aspirin Chewable [Aspirin Chewable*] 1 tab PO DAILY 11/19/19 Atorvastatin Calcium [Lipitor] 40 mg PO BEDTIME 11/19/19 Bupropion HCl [Wellbutrin] 1 tab PO DAILY 11/19/19 Clopidogrel Bisulfate [Plavix*] 75 mg PO DAILY 11/19/19 Codeine/APAP [Tylenol #3*] 1 tab PO Q6HP PRN 11/19/19 Collagenase [Santyl Ointment*] 1 raquel TOP DAILY 11/19/19 Fluticasone [Flovent Hfa 110*] 2 puff PO BID 11/19/19 Gabapentin 300 mg PO BID 11/19/19 Insulin Detemir [Levemir Flextouch] 10 units SQ BID 11/19/19 Sertraline [Zoloft*] 25 mg PO DAILY 11/19/19 carvediloL [Coreg*] 12.5 mg PO DAILY 11/19/19 Bumetanide [Bumex*] 2 mg PO TID 30 Days #180 tab 12/02/19 Ensure High Protein 237 ml PO BID 30 Days #60 can 12/02/19 Hydralazine [Apresoline*] 50 mg PO TID 30 Days #90 tab 12/02/19 Patrice [Patrice*] 1 pkt PO BID 30 Days #60 powd.pack 12/02/19 Levothyroxine [Synthroid*] 0.112 mg PO DAILYAC 30 Days #30 tab 12/02/19 metOLazone [Zaroxolyn*] 5 mg PO BID 30 Days #60 tab 12/02/19 - Past Medical/Surgical History Diabetic: Yes -: COPD -: Hypertension -: CAD, CABG x4 vessels (August 2017) -: Diabetes mellitus type 2, insulin-dependent -: Chronic diastolic CHF -: Uterine cancer status post hysterectomy -: Chronic renal disease, stage IV -: TB as a child - Negative 2018 -: Hyperlipidemia -: Iron deficiency anemia -: Morbid obesity -: Likely obstructive sleep apnea -: Rectal surgery -: Hysterectomy -: Cholecystectomy -: Gastric surgery -: Appendectomy -: CABG x4 vessel -: RLE Femoral popliteal bypass -: Left great toe amputation Psychosocial/ Personal History: The patient is a . Her son lives with her. She has 3 children. - Family History Brother -: Heart disease, Hypertension, Diabetes Notes: Father -: Heart disease, Cancer Notes: - Prostate surgery - Hemorrhage Mother -: GI disease Notes: Sister -: Heart disease Notes: - Respiratory failure - Social History Smoking Status: Current every day smoker Alcohol use: No CD- Drugs: No Caffeine use: Yes Review of Systems 10-point ROS is otherwise unremarkable Physical Examination - Physical Exam General: Alert, Oriented x3, Cooperative, Other (Laying flat on stretcher, face with blood and bandages) HEENT: PERRLA, Other (Multiple lacerations, dressing on forehead, ~ 1 cm diameter skin abrasion on bridge of nose, multiple small skin abrasion/cuts on nose and upper lip) Neck: Supple, No LAD Respiratory: Diminished, Crackles/rales (Mild at right base) Cardiovascular: Regular rate/rhythm, Edema (2-3+ up to the abdomen) Gastrointestinal: Soft and benign, Non-distended, No tenderness Musculoskeletal: Tenderness (Tenderness to palpation along the sternum, no ecchymoses) Integumentary: Other (Multiple small skin abrasions on bilateral upper extremities) Neurological: Normal speech, Normal affect - Studies Laboratory Data (last 24 hrs) 12/05/19 11:14: Troponin I 0.06 H 12/05/19 11:14: PT 15.9 H, INR 1.36 12/05/19 11:14: WBC 6.0, Hgb 5.1 L* D, Hct 15.9 L* D, Plt Count 93 L 12/05/19 11:14: Sodium 138, Potassium 3.3 L, BUN 83 H, Creatinine 2.68 H, Glucose 87, Total Bilirubin 0.4, AST 20, ALT 11 L, Alkaline Phosphatase 89, Amylase 19 L, Lipase 39 L Assessment and Plan - Advance Directives Does patient have a Living Will: Yes Does patient have a Durable POA for Healthcare: Yes - Code Status/Comfort Care Code Status Assessed: Yes Code Status: Full Code Physician Review Additional Text: A/P Acute blood-loss anemia secondary to fall Chest pain Elevated troponin Chronic diastolic congestive heart failure Diabetes mellitus type 2-insulin dependent CKD stage 4 Hypertension Osteomyelitis, Lower extremity wounds COPD Hyperlipidemia Acute blood-loss anemia secondary to fall -hemoglobin 5.1 in the ED -currently receiving 2 units PRBCs in the ED -check posttransfusion H&H -may need more blood, monitor closely. Patient recently discharged for acute on chronic CHF exacerbation last week -vitals okay, blood pressure 90s/50s -patient with multiple lacerations on face, extremities, continuing to bleed as patient is on aspirin and Plavix -will hold aspirin Chest pain Elevated troponin -no new EKG changes, troponin mildly elevated -patient with tenderness to palpation in area where she has chest pain, likely secondary to fall -troponin elevation possible in setting of demand ischemia due to acute blood loss, also with CKD -given significant history, will consult Cardiology, trend troponins Chronic diastolic congestive heart failure -as noted above, patient recently discharged from a recent CHF exacerbation last week -continue Bumex t.i.d. -still with edema and pleural effusions -does not appear in acute CHF exacerbation -patient states she was still urinating, and maybe slight improvement in edema at home Diabetes mellitus type 2-insulin dependent: Continue home insulin, SSI, qACHS accu-cheks CKD stage 4: Will continue diuresis as noted above Hypertension: -hold home hydralazine, given low blood pressure Osteomyelitis, Lower extremity wounds -continue Zosyn and ceftazidime, 6 weeks total per ID during last hospitalization -PICC placed 11/23/19 -wound care consult COPD: Medications as needed for COPD. Hyperlipidemia: continue patient's home statin Dispo: Blood transfusions, monitor overnight, possible discharge back home tomorrow pending hemoglobin stability and bleeding Time Spent Managing Pts Care (In Minutes): 60
[2019-12-05 18:07] VITALS: BMI 32.5
[2019-12-05] MEDS: PIPER/TAZO/NS 2.25gm 2.25 GM/50 ML BAG IVPB SCH (19:48)
[2019-12-05] MEDS ORDERED: CEFTAZIDIME 1 GM VIAL IV ONE (20:00)
[2019-12-05] MEDS ORDERED: CEFTAZIDIME 1 GM VIAL ONE (20:42)
[2019-12-05] MEDS: HYDROMORPHONE HCL 0.5 MG/0.5 ML INJ IV PRN (20:48)
[2019-12-05] MEDS: ENSURE HIGH PROTEIN 237 ML CAN PO SCH (20:53)
[2019-12-05] MEDS: JUVEN PACKET PO SCH (20:53)
[2019-12-05] MEDS: INSULIN -REGULAR HUMAN 50 UNIT/0.5 ML ML SQ SCH (20:54)
[2019-12-05] MEDS ORDERED: SODIUM CHL 0.9% 100 ML BAG IV ONE (21:00)
[2019-12-05] MEDS: ATORVASTATIN 40 MG TAB PO SCH (21:00)
[2019-12-05] MEDS: GABAPENTIN 300 MG CAP PO SCH (21:00)
[2019-12-05] MEDS: METOLAZONE 5 MG TABLET PO SCH (21:00)
[2019-12-05] MEDS: BUMETANIDE 1 MG TABLET PO SCH (21:00)
[2019-12-05] MEDS ORDERED: WATER FOR INJ,STERILE 10 ML IV ONE (21:00)
[2019-12-05] MEDS ORDERED: HOME MED 1 EA UNK (Insulin Detemir [Levemir Flextouch] 10 UNITS) SQ SCH (21:00)
[2019-12-05] MEDS ORDERED: NA CHLORIDE 0.9% 250 ML ONE (22:43)
[2019-12-06] MEDS: PIPER/TAZO/NS 2.25gm 2.25 GM/50 ML BAG IVPB SCH ×3 (01:00→17:15)
[2019-12-06] MEDS: HYDROMORPHONE HCL 0.5 MG/0.5 ML INJ IV PRN (03:32)
[2019-12-06] MEDS: ONDANSETRON 4 MG/2 ML VIAL IV PRN (03:37)
[2019-12-06 04:18] LABS: Absolute Lymphocytes (CBC) 1.2 K/uL (0.7-4.9); Basophils % 0.7 % (0-1.3); Hematocrit 22.3 % (36.0-45.0); Lymphocytes % 18.6 % (15.3-44.8); RBC Red Blood Cell Count 2.58 M/uL (3.86-4.86)
[2019-12-06 04:19] LABS: Protime INR 1.34
[2019-12-06 04:42] LABS: Albumin 1.8 g/dL (3.4-5.0); Bilirubin Total 0.6 mg/dL (0.2-1.0); Magnesium 1.8 mg/dL (1.8-2.4); Potassium 3.4 mmol/L (3.5-5.1); Protein, Total 6.4 g/dL (6.4-8.2)
[2019-12-06 04:44] LABS: Thyroid Stimulating Hormone 48.7 uIU/mL (0.360-3.740)
[2019-12-06] MEDS ORDERED: MAGNESIUM SULFATE 1 gm IVPB 1 GM/100 ML BAG IV ONE (06:02)
[2019-12-06] MEDS: LEVOTHYROXINE SOD 0.112 MG TAB PO SCH (06:30)
[2019-12-06] MEDS: INSULIN -REGULAR HUMAN 50 UNIT/0.5 ML ML SQ SCH ×4 (07:30→20:51)
[2019-12-06] MEDS: GABAPENTIN 300 MG CAP PO SCH ×2 (08:52→20:44)
[2019-12-06] MEDS: METOLAZONE 5 MG TABLET PO SCH ×2 (08:52→20:43)
[2019-12-06] MEDS: carvediloL 12.5 MG TAB PO SCH (08:53)
[2019-12-06] MEDS: BUMETANIDE 1 MG TABLET PO SCH ×3 (08:53→20:42)
[2019-12-06] MEDS: SERTRALINE HCL 50 MG TAB PO SCH (08:53)
[2019-12-06] MEDS: BUPROPION HCL PO SCH (09:00)
[2019-12-06] MEDS: JUVEN PACKET PO SCH ×2 (09:00→20:46)
[2019-12-06] MEDS ORDERED: CEFTAZIDIME 1 GM in NA CHLORIDE 0.9% 50 ML IV SCH (09:00)
[2019-12-06] MEDS ORDERED: CEFTAZIDIME 1 GM VIAL IV SCH (09:00)
[2019-12-06] MEDS: ENSURE HIGH PROTEIN 237 ML CAN PO SCH ×2 (09:00→20:45)
[2019-12-06] MEDS ORDERED: POTASSIUM CL SA 10 MEQ TAB PO ONE (09:00)
[2019-12-06] MEDS: INSULIN GLARGINE 100 UNITS/ML SQ SCH ×2 (09:00→20:45)
[2019-12-06] MEDS ORDERED: NA CHLORIDE 0.9% 250 ML ONE (10:45)
[2019-12-06] MEDS ORDERED: EPOETIN ALFA-EPBX 10,000 UNIT/ML VIAL SQ SCH (11:00)
--- NOTE | 2019-12-06 13:12 | P.PN ---
Subjective Date of Service: 12/06/19 Chief Complaint: Fall, acute blood loss anemia, chest pain Patient received 2 units of blood overnight, still having some mild bleeding from her facial lacerations She states overall she feels better, still has pain where she fell. Denies shortness of breath Physical Examination - Vital Signs Temperature: 97.8 F Blood Pressure: 143/76 Pulse: 69 Respirations: 18 Pulse Ox (%): 98 - Physical Exam General: Alert, In no apparent distress HEENT: Other (Multiple facial lacerations, dressing on forehead with some dried blood) Neck: No LAD Respiratory: Diminished (At bases bilaterally) Cardiovascular: Regular rate/rhythm, Edema (Pitting up to abdomen) Gastrointestinal: Soft and benign, Non-distended, No tenderness, Ascites Integumentary: Other (Multiple skin lacerations on face and arms) Neurological: Normal speech, Normal affect Assessment & Plan Physician Review Additional Text: A/P Acute blood-loss anemia secondary to fall Chest pain Elevated troponin Chronic diastolic congestive heart failure ARTURO on CKD stage 4 Diabetes mellitus type 2-insulin dependent Hypertension Osteomyelitis, Lower extremity wounds COPD Hyperlipidemia Acute blood-loss anemia secondary to fall -hemoglobin 5.1 in the ED, s/p 2u PRBCs 12/04 -> Hgb: 7.1, 3rd unit ordered -vitals okay, blood pressure improved, initially 90s/50s -patient with multiple lacerations on face, extremities, continuing to bleed as patient is on aspirin and Plavix -will hold aspirin and Plavix today -recheck posttransfusion H&H -monitor closely Chest pain Elevated troponin -no new EKG changes, troponin mildly elevated -patient with tenderness to palpation in area where she has chest pain, likely secondary to fall -troponin elevation possible in setting of demand ischemia due to acute blood loss, also with CKD -given significant history, consulted Cardiology, troponins with very mild elevation Chronic diastolic congestive heart failure -as noted above, patient recently discharged from a recent CHF exacerbation last week -continue Bumex t.i.d. -still with edema and pleural effusions -does not appear in acute CHF exacerbation -patient states she was still urinating, and maybe slight improvement in edema at home ARTURO on CKD stage 4: -Creatinine worsening -Creatinine on discharge a few days ago: 2.45, 2.68 on admission, and 2.84 this morning -given her CHF and edema/pleural effusions, will consult nephrology for assistance with diuresing in thee setting of her ARTURO Diabetes mellitus type 2-insulin dependent: Continue home insulin, SSI, qACHS accu-cheks Hypertension: -hold home hydralazine, given low blood pressure Osteomyelitis, Lower extremity wounds -continue Zosyn and ceftazidime, 6 weeks total per ID during last hospitalization -PICC placed 11/23/19 -wound care consult COPD: Medications as needed for COPD. Hyperlipidemia: continue patient's home statin Dispo: kidney function worsening, still mildly bleeding, will need to remain in hospital Time Spent Managing Pts Care (In Minutes): 35
[2019-12-06] MEDS ORDERED: FUROSEMIDE 40 MG/4 ML VIAL IV SCH ×2 (17:00)
[2019-12-06 17:02] LABS: Hematocrit 24.1 % (36.0-45.0)
[2019-12-06] MEDS: FUROSEMIDE 20 MG/ 2ML VIAL IV SCH (17:09)
[2019-12-06] MEDS: FOLIC ACID 1 MG TABLET PO SCH (17:09)
[2019-12-06] MEDS: COLLAGENASE 30 GM OINTMENT TOP SCH (17:15)
[2019-12-06 17:24] LABS: Phosphorus 4.2 mg/dL (2.5-4.9); Potassium 4.2 mmol/L (3.5-5.1)
[2019-12-06 17:27] LABS: Ferritin 242.5 ng/mL (8-388)
--- NOTE | 2019-12-06 18:40 | CON ---
Date of Consultation: 12/06/2019 Reason For Consultation: Elevated troponin. History Of Present Illness: Ms. Priest is very well known to us from many hospital admissions in the [facility]. She has a very extensive past medical history. She has a history of congestive heart failure, coronary artery disease status post CABG. She has history of end-stage renal disease, not on hemodia lysis. She has a history of diabetes, hypertension, dyslipidemia, hypothyroidism, and neuropathy. [place] in basically with a fall, was noted to have hemoglobin of 5.1, it is now 7.1 post transfusion. H er creatinine was 2.84 and her potassium was 3.4. Echocardiogram in January 2019 showed an ejection fraction of 66% with left ventricular hypertrophy. In October 2019, there was a fixed anteroapical d efect without any ischemia. She denied any chest pain or syncope. Denied PND, orthopnea, pedal robbin a, or palpitation. Denied any fever or chills or cough. Allergies: INCLUDE VANCOMYCIN, MORPHINE, BASIL, NITROGLYCERIN, AND TRAMADOL. Review of Systems: Negative. Social History: Negative. Family History: Noncontributory. Physical Examination: General: She appeared her stated age. Vital Signs: Stable. She was in a normal rhythm. HEENT: Negative. Neck: Supple with no bruit. Chest: Clear. Cardiac: Revealed a regular rhythm and rate with an S4 gallop. Abdomen: Benign. Extremities: Revealed no clubbing, cyanosis, or edema. Skin: Dry and intact. Neurological: She was alert and oriented x2. Her pulses were weak distally bilaterally. Diagnostic Data: Troponin was 0.12. Her TSH was 48.7, T4 was 0.68, creatinine of 2.84. Hemoglobin was 5.1 initially and then 7.1. Potassium was 3.4. Echocardiogram in January 2019 showed an ejecti on fraction of 66% with decreased left ventricular compliance and left ventricular hypertrophy. A st ress test in October 2027 showed a fixed anteroapical defect. Impression And Plan: 1.Elevated troponin secondary to demand ischemia from anemia. This is not an acute coronary syndrom e. She has had recent echos, recent stress test and I will not do any more cardiac workup on her at this point. She needs to be transfused, maybe had anemia workup. She may have to have a GI workup a s well. 2.Hypothyroidism with severely elevated TSH and low T4. She is on Synthroid now, but I am not so mcwilliams re she has been taking it. This needs to be addressed. 3.Renal failure, stage IV. Being followed by Nephrology. May end up needing dialysis. 4.Coronary artery disease status post coronary artery bypass graft, stable. 5.Chronic diastolic congestive heart failure, stable. 6.Diabetes. 7.Hypertension. 8.Dyslipidemia, well controlled. 9.Neuropathy. As stated earlier, we will continue her medicine, transfuse her, do an anemia or GI w orkup, address her thyroid. No further cardiac workup at this point. I will be available for questi ons if the need arises. JAMIA/CELESTINE Voice ID: [id number] Report ID: [id number]
[2019-12-06] MEDS: ATORVASTATIN 40 MG TAB PO SCH (20:43)
[2019-12-06] MEDS: CODEINE 30MG/APAP 300MG TAB PO PRN (20:46)
[2019-12-07] MEDS: PIPER/TAZO/NS 2.25gm 2.25 GM/50 ML BAG IVPB SCH ×3 (01:58→16:59)
--- NOTE | 2019-12-07 05:22 | EKG ---
Test Date: 2019-12-05 Test Time: 12:21:21 Technical Service Representative: CATRINA MEASUREMENT RESULTS: Intervals: Rate: 49 AL: 188 QRSD: 118 QT: 534 QTc: 482 Garrard: P: 43 AL: 188 QRS: 103 T: 120 INTERPRETIVE STATEMENTS: Marked sinus bradycardia Rightward axis Possible Anterior infarct, age undetermined ST & T wave abnormality, consider lateral ischemia Abnormal ECG Compared to ECG 11/18/2019 23:24:24 ST (T wave) deviation now present Possible ischemia now present Sinus rhythm no longer present Myocardial infarct finding still present Electronically Signed On 12-07-19 05:20:38 CDT by Taj Raymond
[2019-12-07] MEDS: LEVOTHYROXINE SOD 0.112 MG TAB PO SCH (05:37)
[2019-12-07 05:38] LABS: Albumin 1.8 g/dL (3.4-5.0); Bilirubin Total 0.5 mg/dL (0.2-1.0); Potassium 4.1 mmol/L (3.5-5.1); Protein, Total 6.7 g/dL (6.4-8.2)
[2019-12-07 05:51] LABS: Absolute Lymphocytes (CBC) 1.4 K/uL (0.7-4.9); Basophils % 0.8 % (0-1.3); Hematocrit 24.3 % (36.0-45.0); Lymphocytes % 17.9 % (15.3-44.8); MPV 8.8 fL (7.6-11.3)
[2019-12-07] MEDS: INSULIN -REGULAR HUMAN 50 UNIT/0.5 ML ML SQ SCH ×4 (07:30→21:00)
[2019-12-07] MEDS: ENSURE HIGH PROTEIN 237 ML CAN PO SCH ×2 (09:00→21:25)
[2019-12-07] MEDS ORDERED: FOLIC ACID 1 MG TABLET PO SCH (09:00)
[2019-12-07] MEDS: BUPROPION HCL PO SCH (09:00)
[2019-12-07] MEDS: INSULIN GLARGINE 100 UNITS/ML SQ SCH ×2 (09:00→21:00)
[2019-12-07] MEDS ORDERED: CEFTAZIDIME 1 GM in NA CHLORIDE 0.9% 100 ML IV SCH (09:00)
[2019-12-07] MEDS: JUVEN PACKET PO SCH ×2 (09:00→21:25)
[2019-12-07] MEDS ORDERED: HYDRALAZINE HCL 20 MG/ML VIAL IV PRN (09:30)
[2019-12-07] MEDS: METOLAZONE 5 MG TABLET PO SCH (09:40)
[2019-12-07] MEDS: BUMETANIDE 1 MG TABLET PO SCH ×3 (09:40→21:24)
[2019-12-07] MEDS: GABAPENTIN 300 MG CAP PO SCH ×2 (09:40→21:24)
--- NOTE | 2019-12-07 09:40 | CON ---
Date of Consultation: 12/06/2019 Chief Complaint: Acute on chronic kidney injury. Cardiorenal syndrome. History Of Present Illness: Patient has chronic cardiorenal syndrome. Recently, she was admitted for severe decompensted congestive heart failure. Creatinine on arrival to the hospital was 2.68. Patient has chronic kidney disease stage 4 with related to multiple medical problems including hypertensive heart and kidney disease, cardiorenal syndrome and diabetic kidney disease manifested by severe proteinuria. Patient was recently discharged from the hospital on maintenance diuretic for volume control and management of chronic kidney disease and cardiorenal syndrome. Creatinine level improved in November with treatment to 2.4, although baseline creatinine level was 1.9 back in 2019. Creatinine level has been fluctuating due to the diuretic therapy and acute kidney injury with superimposed cardiorenal syndrome. Volemia control has improved prior to discharge and patient was discharged to home, although she came back to the hospital on December 04. She was brought by ambulance after she sustained fall and developed facial trauma. Patient has chronic diastolic congestive heart failure, diabetes mellitus, hypertension, hyperlipidemia, osteomyelitis, coronary artery disease, status post CABG, and COPD. She was brought to the emergency department after a mechanical fall. Patient states she was in her wheelchair trying to move around the swimming pool at her apartment complex when she fell off the curb and fell forward on her face and chest on the concrete with some loose gravel. She reports that she had bleeding from her face and nose. Review of Systems: Denies fever or chills. Eyes: Denies vision changes. Ears, Nose, Mouth and Throat: Denies sore throat, although she is complaining of some facial pain and bleeding. Neck: Denies neck pain. Cardiovascular: Denies chest pain, palpitation, syncope. GI: Denies nausea or vomiting. : Denies dysuria, hematuria. Musculoskeletal: She is complaining of generalized pain. All other systems reviewed and all are negative. Past Medical History: Congestive heart failure, hypertensive heart and kidney disease, diabetes mellitus with renal manifestation, diabetic nephropathy, chronic kidney disease stage 4, osteomyelitis, coronary artery disease with CABG, COPD, failure to thrive, history of anasarca, proteinuria, diabetic kidney disease manifested by proteinuria, anemia in CKD. Social History: Denies tobacco, alcohol, or illicit drugs. Family History: Hypertension and diabetes mellitus. Physical Examination: General: Patient is awake, follows commands. No tremor. Nose, Mouth and Throat: There are traumatic nasal changes. Face is covered with some bandages. Eyes: EOMI. No oozing Neck: Supple. No JVD. Respiratory: A few crackles at bases. NO wheezing. Heart: S1, S2. No pericardial friction rub. Abdomen: Soft, obese, nontender. No rebound. No guarding. Extremities: Edema present in both legs. Bruises in upper and lower extremities. Neurologic: Patient follows commands. No tremor. Laboratory Data: Sodium 157, potassium 4.2, chloride 100, CO2 of 33, BUN 93, creatinine 2.94, calcium 7.8, albumin is 2.3 and 1.8. Ferritin 242.5, phosphorus 4.2. Impression And Plan: 1. Acute on chronic kidney injury, cardiorenal syndrome, congestive heart failure with diastolic dysfunction and volume overload, anasarca precipitated by nephrotic range proteinuria. Continue Lasix and adjust dose according to volemia status. Patient will have metolazone as well as furosemide for cardiorenal syndrome control. Monitor electrolytes and magnesium level. Adjust supplementation with potassium and magnesium accordingly. 2. Traumatic facial injury. Patient will be evaluated by primary team and surgical team. 3. Congestive heart failure. Acute on advance chronic kidney disease, accelerated by proteinuric diabetic kidney disease complicated by volume ovaroad and anasarca. Continue low-sodium diet advance diuretic dose according to volemia status and fluid balance. Monitor blood pressure closely and continue current blood pressure medication. 4. Proteinuria. Continue BLAYNE inhibitor along with Lasix for cardiorenal syndrome and antiproteinuric effect. avoid NSAID to prevent hyperkalemia and renal hypoperfusion triggered by NSAID effect which creates risk of worsening kidney failure. JONNY/CELESTINE Voice ID: [id number] Report ID: [id number] AZUCENA
[2019-12-07] MEDS: FOLIC ACID 1 MG TABLET PO SCH (09:41)
[2019-12-07] MEDS: carvediloL 12.5 MG TAB PO SCH (09:41)
[2019-12-07] MEDS: SERTRALINE HCL 50 MG TAB PO SCH (09:41)
[2019-12-07] MEDS: COLLAGENASE 30 GM OINTMENT TOP SCH (09:43)
[2019-12-07] MEDS: BUPROPION HCL XL 150 MG TAB PO SCH (10:37)
[2019-12-07] MEDS: CODEINE 30MG/APAP 300MG TAB PO PRN ×2 (10:37→21:24)
[2019-12-07] MEDS: CEFTAZIDIME 1 GM in NA CHLORIDE 0.9% 100 ML IV SCH (10:37)
[2019-12-07] MEDS: ONDANSETRON 4 MG/2 ML VIAL IV PRN (10:57)
--- NOTE | 2019-12-07 13:05 | P.PN ---
Subjective Date of Service: 12/07/19 Chief Complaint: Fall, acute blood loss anemia, chest pain Patient currently has no new complaint. Serum creatinine trended up slightly. Physical Examination - Vital Signs Temperature: 97.6 F Blood Pressure: 154/73 Pulse: 58 Respirations: 18 Pulse Ox (%): 94 - Physical Exam General: Alert, In no apparent distress, Oriented x3 HEENT: Other (Dressed laceration of forehead. Bruises- nose and b/l periorbital areas.) Neck: Supple Respiratory: Diminished (Bilateral) Cardiovascular: No edema, Regular rate/rhythm, Normal S1 S2 Gastrointestinal: Normal bowel sounds, Soft and benign, Non-distended, No tenderness Musculoskeletal: No swelling Neurological: Normal strength at 5/5 x4 extr Assessment And Plan Physician Review Additional Text: A/P Acute blood-loss anemia secondary to fall Chest pain Elevated troponin Chronic diastolic congestive heart failure ARTURO on CKD stage 4 Diabetes mellitus type 2-insulin dependent Hypertension Osteomyelitis, Lower extremity wounds COPD Hyperlipidemia Acute blood-loss anemia secondary to fall -hemoglobin 5.1 in the ED, s/p 3u PRBCs /6 -> Hgb: 8.1 . -vitals okay, blood pressure improved, and currently hypertensive. -aspirin and Plavix on hold secondary to bleeding -continue to monitor hemoglobin. -resume aspirin and Plavix once hemoglobin has stabilized Chest pain Elevated troponin -cardiology input appreciated. Elevated troponin likely secondary to demand ischemia. Chronic diastolic congestive heart failure -as noted above, patient recently discharged from a recent CHF exacerbation last week -chronic pleural effusion. -On Bumex t.i.d. and metolazone. -still with edema and pleural effusions -does not appear in acute CHF exacerbation ARTURO on CKD stage 4: -Creatinine slightly worse today. -nephrology input appreciated. -continue Bumex and metolazone per nephrology. -continue to monitor renal function Diabetes mellitus type 2-insulin dependent: Continue home insulin, SSI, qACHS accu-cheks Hypertension: -resume BP meds stepwise, starting with hydralazine. Osteomyelitis, Lower extremity wounds -continue Zosyn and ceftazidime, 6 weeks total per ID during last hospitalization -PICC placed 11/23/19 -wound care COPD: Medications as needed for COPD.
--- NOTE | 2019-12-07 14:50 | RAD REPORT ---
EXAM DESCRIPTION: RAD - Chest Single View - 12/07/2019 2:41 pm CLINICAL HISTORY: COPD COMPARISON: Portable November 29 TECHNIQUE: AP portable chest image was obtained 12/07/2019 2:41 pm . FINDINGS: Left lung field is clear. Right upper lung field is clear. Interstitial pattern matches co mparison. Heart size is prominent but stable. Upper lobe vasculature within normal limits. Large righ t pleural effusion is present not substantially different from the comparison. No measurable left-luly ed pleural effusion. Sternotomy wires are in place. Left upper extremity PICC line still in place. No acute bony abnormality seen. No acute aortic findings suspected. IMPRESSION: Large right pleural effusion similar to November 29 imaging.
--- NOTE | 2019-12-07 14:55 | PN ---
Date of Progress Note: 12/07/2019 Subjective: The patient was admitted with acute kidney injury, recurrent fall, and advanced chronic kidney disease. Physical Examination: Vital Signs: Blood pressure 154/73, pulse of 89, afebrile. Chest: Crackles bilateral base. Heart: S1, S2. Systolic murmur. Abdomen: Soft, nontender. Extremities: Bilateral +2 edema. Dressing on both legs. Head and Neck: Multiple facial laceration and ecchymoses around the eyes. Neurologic: Alert. No focality. Laboratory Data: WBC 7.8, H and H 8.1/24.3. Sodium 138, potassium 4.1, bicarb 33, BUN 88, creatinine 3, calcium 7.5, iron saturation 38. Current Medications: The patient on its include, ceftazidime, Zosyn, carvedilol 12.5, gabapentin, Bumex 2 mg t.i.d., metolazone, folic acid. Assessment And Plan: 1. Chronic kidney disease, advanced significant peripheral edema. I am going to continue current diuresis. We will decrease metolazone to once a day and we will continue Bumex. 2. Hypertension, controlled, optimal. Continue to utilize blood pressure for more diuresis. 3. Anemia secondary to blood loss due and chronic kidney disease. I am going to start the patient on Retacrit. The patient is status post transfusion. We will follow up. 4. Recurrent fall. Continue PT, OT. 5. Leg wound. Continue wound care. Continue current antibiotic. time spend to coordinate the care , speaking with other Physician and team staff , face to face with the patient and placing order 35 min GAMA Voice ID: [id number] Report ID: [id number] [facility]
[2019-12-07] MEDS ORDERED: EPOETIN ALFA-EPBX 10,000 UNIT/ML VIAL SQ SCH (15:00)
--- NOTE | 2019-12-07 20:04 | EKG ---
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
[2019-12-07] MEDS: ATORVASTATIN 40 MG TAB PO SCH (21:24)
[2019-12-08] MEDS: PIPER/TAZO/NS 2.25gm 2.25 GM/50 ML BAG IVPB SCH ×3 (00:22→20:09)
[2019-12-08] MEDS: LEVOTHYROXINE SOD 0.112 MG TAB PO SCH (05:01)
[2019-12-08] MEDS: CODEINE 30MG/APAP 300MG TAB PO PRN ×3 (05:01→20:10)
[2019-12-08 05:43] LABS: Absolute Lymphocytes (CBC) 1.6 K/uL (0.7-4.9); Basophils % 0.7 % (0-1.3); Hematocrit 22.1 % (36.0-45.0); MPV 8.8 fL (7.6-11.3); RBC Red Blood Cell Count 2.55 M/uL (3.86-4.86)
[2019-12-08 05:47] LABS: Albumin 1.7 g/dL (3.4-5.0); Phosphorus 3.7 mg/dL (2.5-4.9)
[2019-12-08] MEDS: COLLAGENASE 30 GM OINTMENT TOP SCH (06:35)
[2019-12-08] MEDS: INSULIN -REGULAR HUMAN 50 UNIT/0.5 ML ML SQ SCH ×4 (07:30→21:00)
[2019-12-08] MEDS: HYDRALAZINE HCL 25 MG TABLET PO SCH ×2 (09:00→14:00)
[2019-12-08] MEDS: INSULIN GLARGINE 100 UNITS/ML SQ SCH ×2 (09:00→21:00)
[2019-12-08] MEDS: JUVEN PACKET PO SCH ×2 (09:40→20:10)
[2019-12-08] MEDS: METOLAZONE 5 MG TABLET PO SCH (09:40)
[2019-12-08] MEDS: BUPROPION HCL XL 150 MG TAB PO SCH (09:40)
[2019-12-08] MEDS: BUMETANIDE 1 MG TABLET PO SCH ×3 (09:40→20:10)
[2019-12-08] MEDS: ENSURE HIGH PROTEIN 237 ML CAN PO SCH ×2 (09:40→20:10)
[2019-12-08] MEDS: FOLIC ACID 1 MG TABLET PO SCH (09:40)
[2019-12-08] MEDS: GABAPENTIN 300 MG CAP PO SCH ×2 (09:40→20:11)
[2019-12-08] MEDS: SERTRALINE HCL 50 MG TAB PO SCH (09:40)
[2019-12-08] MEDS: CEFTAZIDIME 1 GM in NA CHLORIDE 0.9% 100 ML IV SCH (09:40)
[2019-12-08] MEDS: ISOSORBIDE MONO SR 30 MG TAB PO SCH (09:40)
[2019-12-08] MEDS: carvediloL 12.5 MG TAB PO SCH (09:40)
[2019-12-08] MEDS: allopurinoL 100 MG TAB PO SCH ×2 (10:16→20:11)
--- NOTE | 2019-12-08 13:37 | P.PN ---
Subjective Date of Service: 12/08/19 Chief Complaint: Fall, acute blood loss anemia, chest pain Patient currently has no new complaint. Hemoglobin dropped from yesterday. Patient denies any melena. No active bleeding episode since admission Some creatinine continue to trend up. Physical Examination - Vital Signs Temperature: 97.0 F Blood Pressure: 171/79 Pulse: 60 Respirations: 16 Pulse Ox (%): 93 - Physical Exam General: Alert, In no apparent distress HEENT: Mucous membr. moist/pink Respiratory: Clear to auscultation bilaterally, Normal air movement Cardiovascular: Regular rate/rhythm, Normal S1 S2, Edema (Bilateral lower extremity, up to thighs.) Gastrointestinal: Normal bowel sounds, Soft and benign, Non-distended, No tenderness Integumentary: Other (Bruise-left lateral thigh.) Neurological: Other (Nonfocal) - Studies Laboratory Data (last 24 hrs) 12/08/19 05:10: WBC 8.1, Hgb 7.4 L*, Hct 22.1 L, Plt Count 104 L 12/08/19 05:10: Sodium 136, Potassium 4.0, BUN 89 H, Creatinine 3.13 H, Glucose 85, Phosphorus 3.7, Magnesium 2.0 Assessment And Plan Physician Review Additional Text: A/P Acute blood-loss anemia secondary to fall Chest pain Elevated troponin Chronic diastolic congestive heart failure ARTURO on CKD stage 4 Diabetes mellitus type 2-insulin dependent Hypertension Osteomyelitis, Lower extremity wounds COPD Hyperlipidemia Acute blood-loss anemia secondary to fall -hemoglobin 5.1 in the ED, s/p 3u PRBCs 9/6 -> Hgb: 8.1 . -hemoglobin dropped to 7.4 -aspirin and Plavix on hold secondary -transfuse 1 more unit of PRBC -continue to monitor hemoglobin. Chest pain Elevated troponin -cardiology input appreciated. Elevated troponin likely secondary to demand ischemia. Chronic diastolic congestive heart failure -as noted above, patient recently discharged from a recent CHF exacerbation last week -chronic pleural effusion. -On Bumex t.i.d. and metolazone. -still with edema and pleural effusions but serum creatinine is trending up. -does not appear in acute CHF exacerbation -nephrology is assisting with diuretic dose adjustments. ARTURO on CKD stage 4: -Creatinine slowly trending up. -nephrology input appreciated. -nephrology is suggesting Bumex and metolazone doses. -continue to monitor renal function Diabetes mellitus type 2-insulin dependent: Continue home insulin, SSI, qACHS accu-cheks Hypertension: -resume BP meds stepwise, starting with hydralazine. Osteomyelitis, Lower extremity wounds -continue Zosyn and ceftazidime, 6 weeks total per ID during last hospitalization -PICC placed 11/23/19 -wound care COPD: Medications as needed for COPD. Fall: Patient was going PT.
[2019-12-08] MEDS ORDERED: NA CHLORIDE 0.9% 250 ML IV SCH (14:00)
--- NOTE | 2019-12-08 14:15 | P.PN ---
Subjective Date of Service: 12/10/19 Chief Complaint: Fall, acute blood loss anemia, chest pain Subjective a 64-year-old AA woman with past medical history of hypertension, diabetes mellitus, COPD, Ex smoker, CKD stage 4 baseline Cr ~1.7-2.0 , CAD S/P CABG, CHF lasix and metolazone , Pt was recently admitted with fluid overload, discharged on 11/28 pt now admitted after fall and head trauma today edema improving , cr slightly trending up will conisder to dc metolazone if cr cont to trend up and edema improving PT/OT will check Mg and Markie Physical exam general: AAOX3, NAD ,mild distress Neck; Supple, No elevated JVD hear: RRR, normal S1,2 no murmur or rub Chest: decreased aie entry B/L Abdomen: soft, , Nt Extremities edema , leg dresses A/P Ermias on CKD IV with nephrotic range proteinuria cr gradually tending up previous serology w/u -ve cont bumex and metolazone , ill consider to dc metolazone if cr cont to trend up HTN controlled DM as per primary anemia of chronic disease Cont iron S/P fall no neurological deficit PT/OT LE ulcer cont ABx and wound care Physical Examination - Vital Signs Temperature: 97.0 F Blood Pressure: 136/63 Pulse: 55 Respirations: 19 Pulse Ox (%): 95 - Studies Laboratory Data (last 24 hrs) 12/08/19 05:10: WBC 8.1, Hgb 7.4 L*, Hct 22.1 L, Plt Count 104 L 12/08/19 05:10: Sodium 136, Potassium 4.0, BUN 89 H, Creatinine 3.13 H, Glucose 85, Phosphorus 3.7, Magnesium 2.0
[2019-12-08] MEDS ORDERED: NA CHLORIDE 0.9% 250 ML ONE (16:30)
[2019-12-08] MEDS: FUROSEMIDE 20 MG/ 2ML VIAL IV SCH (20:09)
[2019-12-08] MEDS: ATORVASTATIN 40 MG TAB PO SCH (20:10)
[2019-12-08] MEDS: HOME MED 1 EA UNK IH SCH (21:00)
[2019-12-08 22:22] LABS: Hematocrit 24.2 % (36.0-45.0)
[2019-12-09] MEDS: PIPER/TAZO/NS 2.25gm 2.25 GM/50 ML BAG IVPB SCH ×3 (01:12→17:22)
[2019-12-09] MEDS: LEVOTHYROXINE SOD 0.112 MG TAB PO SCH (05:21)
[2019-12-09 05:37] LABS: Absolute Lymphocytes (CBC) 1.7 K/uL (0.7-4.9); Basophils % 0.9 % (0-1.3); Hematocrit 26.4 % (36.0-45.0); Lymphocytes % 22.4 % (15.3-44.8); MPV 8.5 fL (7.6-11.3); RBC Red Blood Cell Count 3.06 M/uL (3.86-4.86)
[2019-12-09 05:53] LABS: Albumin 1.9 g/dL (3.4-5.0); Magnesium 2.1 mg/dL (1.8-2.4); Phosphorus 3.6 mg/dL (2.5-4.9); Potassium 4.1 mmol/L (3.5-5.1)
[2019-12-09] MEDS: INSULIN -REGULAR HUMAN 50 UNIT/0.5 ML ML SQ SCH ×4 (07:30→20:52)
[2019-12-09] MEDS: COLLAGENASE 30 GM OINTMENT TOP SCH (09:00)
[2019-12-09] MEDS: HOME MED 1 EA UNK IH SCH ×2 (09:00→20:49)
[2019-12-09] MEDS: INSULIN GLARGINE 100 UNITS/ML SQ SCH ×2 (09:00→20:52)
[2019-12-09] MEDS: JUVEN PACKET PO SCH ×2 (09:11→20:49)
[2019-12-09] MEDS: allopurinoL 100 MG TAB PO SCH ×2 (09:11→21:07)
[2019-12-09] MEDS: METOLAZONE 5 MG TABLET PO SCH ×2 (09:12→20:44)
[2019-12-09] MEDS: SERTRALINE HCL 50 MG TAB PO SCH (09:12)
[2019-12-09] MEDS: NIFEDIPINE XL 60 MG TABLET PO SCH (09:12)
[2019-12-09] MEDS: BUMETANIDE 1 MG TABLET PO SCH (09:12)
[2019-12-09] MEDS: carvediloL 12.5 MG TAB PO SCH (09:13)
[2019-12-09] MEDS: GABAPENTIN 300 MG CAP PO SCH (09:13)
[2019-12-09] MEDS: FOLIC ACID 1 MG TABLET PO SCH (09:13)
[2019-12-09] MEDS: FERROUS SULFATE 325 MG TAB PO SCH (09:13)
[2019-12-09] MEDS: BUPROPION HCL XL 150 MG TAB PO SCH (09:13)
[2019-12-09] MEDS: ISOSORBIDE MONO SR 30 MG TAB PO SCH (09:14)
[2019-12-09] MEDS: ENSURE HIGH PROTEIN 237 ML CAN PO SCH ×2 (09:16→20:49)
[2019-12-09] MEDS: CEFTAZIDIME 1 GM in NA CHLORIDE 0.9% 100 ML IV SCH (09:16)
[2019-12-09] MEDS ORDERED: ALBUMIN HUMAN 25% 12.5 GM, FUROSEMIDE 100 MG in NA CHLORIDE 0.9% 40 ML IV SCH (10:00)
[2019-12-09] MEDS: HYDROMORPHONE HCL 0.5 MG/0.5 ML INJ IV PRN ×2 (10:32→15:07)
--- NOTE | 2019-12-09 11:25 | PN ---
Date of Progress Note: 12/09/2019 Subjective: The patient was admitted with fall, head laceration because of unstable gait and mechanical fall. The patient's kidney function is stay on her range, but her blood pressure being elevated. Physical Examination: Vital Signs: Blood pressure 189/84, pulse of 59, afebrile. The patient had good urine output, but still gaining weight. Chest: Crackles bilateral, decreased air entry on the right base. Heart: S1, S2. Systolic murmur. Abdomen: Soft, nontender, ascites. Extremities: +3 edema. Compression dressing on both legs. Head and Neck: Had multiple lacerations on the face with bruises around the eye with dressing. Neurological: Alert, oriented. No focality. Unstable gait. Laboratory Data: WBC 7.4, H and H 8.7/26.4, platelet 126. Sodium 136, potassium 4.1, bicarb 32, BUN 84, creatinine 3.1, GFR of 15, calcium 7.8, phosphorus 3.6, magnesium 2.1, albumin 1.9. Current Medications: Bumex 2 mg t.i.d., metolazone, ceftazidime, Zosyn, ferrous sulfate, atorvastatin, carvedilol 12.5 b.i.d., isosorbide, nifedipine 60 daily, gabapentin, levothyroxine, folic acid, Zofran. Assessment And Plan: 1. Acute kidney injury on advanced chronic kidney disease. Continued to be over volume. I am going to start the patient on Lasix drip with albumin patient before fail on the Lasix drip, but it was without albumin. We will use the albumin as carrier for the Lasix. We will hold on the Bumex. The patient may need to initiate renal replacement therapy if her fluid status is still as a challenge or if did not response on the Lasix drip. Anyhow, this does not need to be started as inpatient, so we will follow up. 2. The patient from the Renal standpoint will be cleared to discharge. We will follow up closely in the office. 3. Hypertension, not controlled. We will utilize blood pressure for more diuresis. I am going to go ahead and change the diuresis as above. We will increase her isosorbide to 60. We will follow up. 4. Anasarca secondary to cardiorenal/cirrhosis. We adjusted the diuresis. I am going to go ahead and decrease gabapentin as it can contribute to her anasarca. Continue levothyroxine and we will follow up the patient. 5. Anemia secondary to iron deficiency anemia, status post transfusion. The patient received IV iron on the last admission. We will follow up. Continue oral. 6. Hypothyroidism. As above. Continue supplement. 7. Leg wounds. Continue wound care. Continue diuresis. Continue current antibiotic. 8. Deconditioning. Continue PT, OT. time spent to coordinate the care , discussing with other team meember the care , face to face with the patient and discussed the plan with patient , placing order 35 min NATI/CELESTINE Voice ID: [id number] Report ID: [id number] MTDD
[2019-12-09] MEDS: FENTANYL 50 MCG/PATCH TD SCH (11:48)
--- NOTE | 2019-12-09 12:38 | P.PN ---
Subjective Date of Service: 12/09/19 Chief Complaint: Fall, acute blood loss anemia, chest pain Patient complaining of pain. She thought she might have been experiencing hallucinations last night. Hemoglobin is stable from yesterday Patient denies any melena. No active bleeding episode since admission Serum creatinine is stable from yesterday. Physical Examination - Vital Signs Temperature: 96.7 F Blood Pressure: 192/93 Pulse: 54 Respirations: 18 Pulse Ox (%): 97 - Physical Exam General: Alert, In no apparent distress Respiratory: Clear to auscultation bilaterally, Normal air movement Cardiovascular: Regular rate/rhythm, Normal S1 S2, Edema (3+ bilateral lower extremity edema up to the thigh) Gastrointestinal: Normal bowel sounds, Soft and benign, No tenderness Integumentary: Other (Bilateral lower extremity venostasis dermatitis) Neurological: Other (Nonfocal.) Assessment And Plan Physician Review Additional Text: A/P Acute blood-loss anemia secondary to fall Chest pain Elevated troponin Chronic diastolic congestive heart failure ARTURO on CKD stage 4 Diabetes mellitus type 2-insulin dependent Hypertension Osteomyelitis, Lower extremity wounds COPD Hyperlipidemia Acute blood-loss anemia secondary to fall -hemoglobin 5.1 in the ED, s/p 4u PRBCs / -> Hgb: 8.7 . -hemoglobin is stable from yesterday. -aspirin and Plavix on hold secondary to anemia. -continue to monitor hemoglobin. Elevated troponin -cardiology input appreciated. Elevated troponin likely secondary to demand ischemia. Chronic diastolic congestive heart failure -as noted above, patient recently discharged from a recent CHF exacerbation last week -chronic pleural effusion. -Bumex on hold, patient started on Lasix drip with albumin infusion. -On Bumex t.i.d. and metolazone. -nephrology is assisting with diuretic dose adjustments. ARTURO on CKD stage 4: -Creatinine stable from yesterday -nephrology is following -patient may need hemodialysis for refractory anasarca. -resume Bumex and metolazone on discharge per nephrology Diabetes mellitus type 2-insulin dependent: Continue home insulin, SSI, qACHS accu-cheks Hypertension: -resume BP meds stepwise, starting with hydralazine. Osteomyelitis, Lower extremity wounds -continue Zosyn and ceftazidime, 6 weeks total per ID during last hospitalization -PICC placed 11/23/19 -wound care COPD: Medications as needed for COPD. Fall: Patient was going PT. Hallucination -no altered mental status -could be secondary to opioid use (codeine) -monitor. Time Spent Managing PTS Care (In Minutes): 37
[2019-12-09] MEDS: GABAPENTIN 100 MG CAP PO SCH ×2 (13:15→20:45)
[2019-12-09] MEDS: NA CHLORIDE 0.9% IV SCH ×2 (13:24→17:25)
[2019-12-09] MEDS: FUROSEMIDE IV SCH ×2 (13:24→17:25)
[2019-12-09] MEDS: ALBUMIN HUMAN IV SCH ×2 (13:24→17:25)
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
[2019-12-09] MEDS: ATORVASTATIN 40 MG TAB PO SCH (20:45)
[2019-12-09] MEDS: CODEINE 30MG/APAP 300MG TAB PO PRN (20:46)
[2019-12-10] MEDS: PIPER/TAZO/NS 2.25gm 2.25 GM/50 ML BAG IVPB SCH ×3 (00:43→17:00)
[2019-12-10] MEDS: ALBUMIN HUMAN IV SCH ×7 (00:43→21:53)
[2019-12-10] MEDS: FUROSEMIDE IV SCH ×7 (00:43→21:53)
[2019-12-10] MEDS: NA CHLORIDE 0.9% IV SCH ×7 (00:43→21:53)
[2019-12-10] MEDS: HYDROMORPHONE HCL 0.5 MG/0.5 ML INJ IV PRN (00:57)
[2019-12-10 05:27] LABS: Albumin 2.6 g/dL (3.4-5.0); Phosphorus 3.8 mg/dL (2.5-4.9)
[2019-12-10 05:30] LABS: Absolute Lymphocytes (CBC) 1.4 K/uL (0.7-4.9); Hematocrit 22.6 % (36.0-45.0); Lymphocytes % 21.3 % (15.3-44.8); MPV 8.8 fL (7.6-11.3); RBC Red Blood Cell Count 2.59 M/uL (3.86-4.86)
[2019-12-10] MEDS: LEVOTHYROXINE SOD 0.112 MG TAB PO SCH (06:03)
[2019-12-10] MEDS: INSULIN -REGULAR HUMAN 50 UNIT/0.5 ML ML SQ SCH ×4 (07:30→21:00)
[2019-12-10] MEDS: ENSURE HIGH PROTEIN 237 ML CAN PO SCH ×2 (08:32→21:58)
[2019-12-10] MEDS: HOME MED 1 EA UNK IH SCH ×2 (08:32→21:00)
[2019-12-10] MEDS: JUVEN PACKET PO SCH ×2 (08:35→21:58)
[2019-12-10] MEDS: SERTRALINE HCL 50 MG TAB PO SCH (08:47)
[2019-12-10] MEDS: BUPROPION HCL XL 150 MG TAB PO SCH (08:47)
[2019-12-10] MEDS: COLLAGENASE 30 GM OINTMENT TOP SCH (08:47)
[2019-12-10] MEDS: INSULIN GLARGINE 100 UNITS/ML SQ SCH ×2 (08:48→21:59)
[2019-12-10] MEDS: GABAPENTIN 100 MG CAP PO SCH ×3 (08:48→22:00)
[2019-12-10] MEDS: FERROUS SULFATE 325 MG TAB PO SCH (08:49)
[2019-12-10] MEDS: FOLIC ACID 1 MG TABLET PO SCH (08:49)
[2019-12-10] MEDS: MUPIROCIN 2% OINT 22GM TUBE TOP SCH (08:49)
[2019-12-10] MEDS: allopurinoL 100 MG TAB PO SCH ×2 (09:00→22:00)
[2019-12-10] MEDS: CEFTAZIDIME 1 GM in NA CHLORIDE 0.9% 100 ML IV SCH (09:09)
[2019-12-10] MEDS: ISOSORBIDE MONO SR 60 MG TAB PO SCH (09:10)
[2019-12-10] MEDS: carvediloL 12.5 MG TAB PO SCH (09:10)
[2019-12-10] MEDS: METOLAZONE 5 MG TABLET PO SCH ×2 (09:10→21:54)
[2019-12-10] MEDS: NIFEDIPINE XL 60 MG TABLET PO SCH (09:10)
--- NOTE | 2019-12-10 12:48 | P.PN ---
Subjective Date of Service: 12/10/19 Chief Complaint: Fall, acute blood loss anemia, chest pain Patient has lower extremity edema is improving. Hemoglobin levels fluctuating. I suspect Patient denies any melena. No active bleeding episode since admission Serum creatinine is stable. Patient seen and evaluated by neurology. Physical Examination - Vital Signs Temperature: 97.0 F Blood Pressure: 136/63 Pulse: 55 Respirations: 19 Pulse Ox (%): 95 - Physical Exam General: Alert, In no apparent distress Respiratory: Clear to auscultation bilaterally, Normal air movement Cardiovascular: Regular rate/rhythm, Normal S1 S2, Edema (Bilateral lower extremities) Gastrointestinal: Normal bowel sounds, Soft and benign Musculoskeletal: Swelling (Bilateral lower extremities) Integumentary: Skin breakdown (Skin tears) Assessment And Plan Physician Review Additional Text: A/P Acute blood-loss anemia secondary to fall Chest pain Elevated troponin Chronic diastolic congestive heart failure ARTURO on CKD stage 4 Diabetes mellitus type 2-insulin dependent Hypertension Osteomyelitis, Lower extremity wounds COPD Hyperlipidemia Acute blood-loss anemia secondary to fall -hemoglobin 5.1 in the ED, s/p 4u PRBCs /6 -> Hgb: 8.7 . -hemoglobin fluctuating -aspirin and Plavix on hold secondary to anemia. -continue to monitor hemoglobin. Elevated troponin -cardiology input appreciated. Elevated troponin likely secondary to demand ischemia. Chronic diastolic congestive heart failure/venostasis dermatitis. -as noted above, patient recently discharged from a recent CHF exacerbation last week -chronic pleural effusion. -Bumex on hold, patient started on Lasix drip with albumin infusion. -On Bumex t.i.d. and metolazone. -nephrology is assisting with diuretic dose adjustments. ARTURO on CKD stage 4: -Creatinine stable from yesterday -nephrology is following -patient may need hemodialysis for refractory anasarca. -patient currently on Lasix drip with albumin infusion. Diabetes mellitus type 2-insulin dependent: Continue home insulin, SSI, qACHS accu-cheks Hypertension: -BP meds resumed. Osteomyelitis, Lower extremity wounds -continue Zosyn and ceftazidime, 6 weeks total per ID during last hospitalization -PICC placed 11/23/19 -wound care COPD: Medications as needed for COPD. Fall: Patient was going PT. -Wound care team recommendations appreciated. -Surgery to evaluate B/L UE skin flaps. -Continue wound care for venuos stasis dermatitis. Hallucination -no altered mental status -could be secondary to opioid use (codeine) -Neurology input appreciated -Obtain brain MRI to rule out CVA.
--- NOTE | 2019-12-10 13:02 | P.PN ---
Subjective Date of Service: 12/10/19 Chief Complaint: Fall, acute blood loss anemia, chest pain Subjective a 64-year-old AA woman with past medical history of hypertension, diabetes mellitus, COPD, Ex smoker, CKD stage 4 baseline Cr ~1.7-2.0 , CAD S/P CABG, CHF lasix and metolazone , Pt was recently admitted with fluid overload, discharged on 11/28 pt now admitted after fall and head trauma today Bun and Cr stable will cont lasix drip , scheduled for wound debridment will insert Greene if Bun/cr cont to trend up or fail diuretics then will consider HD , discussed with Pt and she comprehend understanding Physical exam general: AAOX3, NAD ,mild distress Neck; Supple, No elevated JVD hear: RRR, normal S1,2 no murmur or rub Chest: decreased aie entry B/L Abdomen: soft, , Nt Extremities edema , leg dresses A/P Ermias on CKD IV with nephrotic range proteinuria cr gradually tending up previous serology w/u -ve started on lasix/albumin drip if Bun/cr cont to trend up or fail diuretics then will consider HD , discussed with Pt and she comprehend understanding HTN controlled DM as per primary anemia of chronic disease S/P iron transfuse to keep Hb >7.0 S/P fall no neurological deficit PT/OT LE ulcer cont ABx and wound care scheduled for debridment Physical Examination - Vital Signs Temperature: 97.0 F Blood Pressure: 136/63 Pulse: 55 Respirations: 19 Pulse Ox (%): 95
[2019-12-10] MEDS ORDERED: NA CHLORIDE 0.9% 500 ML ONE (14:17)
[2019-12-10] MEDS ORDERED: propofoL 200 MG/20 ML VIAL IV ONE (15:49)
[2019-12-10] MEDS ORDERED: FENTANYL CITR 100 MCG/2 ML ONE (15:49)
[2019-12-10] MEDS ORDERED: LIDOCAINE 1% MPF 5 ML VIAL ONE (15:49)
[2019-12-10] MEDS ORDERED: SILVER SULFADIAZINE 1% 50 GM TOP ONE (16:00)
--- NOTE | 2019-12-10 16:02 | PN ---
Subjective: Ms. Priest is resting in bed, lying on the right side. Reports moderate pain. She does h ave coarse bruising on her face from a recent fall and then in the arms and legs. She is in no acute distress, however. Objective: Vital Signs: Blood pressure 136/63, pulse of 85, respiratory rate 16, temperature 97, ox ygen saturation 95% on 2 L oxygen by nasal cannula. General: She is oriented to person, place, follows instructions appropriately. She is going to appa rently have dialysis access port. Laboratory Studies: Hemoglobin down to 7.5 after yesterday being 8.7. She has received 5 units of b lood so far since her admission due to severe anemia. Actually started a total of 8 units of blood t ransfused since her admission. Her recent chest x-ray shows no acute cardiopulmonary processes and h er electrocardiogram shows normal sinus rhythm, T-wave abnormalities, consider lateral ischemia and p rolonged QT. Assessment: Ms. Priest is a 64-year-old patient with multiple reasons for short-term memory loss inclu ding minor head trauma with possible post concussive syndrome. She has significant electrolyte abnor malities from renal dysfunction, elevated BUN, and creatinine and severe anemia. Plan: 1.We will follow up the EEG if brain MRI is done. 2.Continue with management of comorbid conditions to address blood sugar management. Renal function with potential dialysis and DVT prophylaxis and address the anemia. May hold aspirin if appropriate . 3.Anemia is as addressed including a potential GI workup. Primary care team is showing. TITA/CELESTINE Voice ID: [id number] Report ID: [id number]
[2019-12-10] MEDS ORDERED: KETOROLAC 30 MG/ML INJ ONE (16:14)
[2019-12-10] MEDS ORDERED: dexAMETHasone 10 MG/ML VIAL ONE (16:14)
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
[2019-12-10] MEDS ORDERED: ONDANSETRON 4 MG/2 ML VIAL ONE (16:35)
--- NOTE | 2019-12-10 16:38 | P.OP ---
[employer] Project Engineer: Maria T JAIN Preoperative diagnosis: Multiple non-healing wounds Arms and Legs and Chest Postoperative diagnosis: same Primary procedure: Debridement of all wounds to sq and left foot wound to bone Anesthesia: General Estimated blood loss: min Specimen: debridement tissue Findings: as above Complications: None Transferred to: Recovery Room Condition: Good
[2019-12-10] MEDS ORDERED: GLYCOPYRROLATE 0.2 MG/ML SYR ONE (16:40)
[2019-12-10] MEDS ORDERED: ATROPINE SULF 1 MG/10 ML SYR IV ONE (16:42)
[2019-12-10] MEDS ORDERED: COLLAGENASE 30 GM OINTMENT TOP ONE (16:43)
--- NOTE | 2019-12-10 19:38 | OP ---
Date of Procedure: 12/10/2019 Surgeon: Richmond Corona MD Pharm Tech: CRISTOBAL Leon Preoperative Diagnoses: Multiple wounds on the chest, both forearms, and both legs [id number] in cluding the foot. Postoperative Diagnoses: Multiple wounds on the chest, both forearms, and both legs [id number] i ncluding the foot. Procedure: Debridement of left leg wound 2 x 1.3 cm to subcutaneous tissue, another wound 2 x 1.7 cm to subcutaneous tissue, left lateral foot 1.9 x 1.3 cm to bone, left proximal lateral foot 2.1 x 2.1 cm to subcutaneous tissue, right leg 5 x 3.7 cm to subcutaneous tissue on posterior aspect and 5.5 x 5.2 cm to subcutaneous tissue on the anterior aspect, on the left arm 3 x 1.3 cm to subcutaneous tis vida and 12 x 4.5 cm to subcutaneous tissue and right arm 7.2 x 7 cm to subcutaneous tissue, and the l eft anterior chest 4 x 6 cm to subcutaneous tissue. Estimated Blood Loss: Minimal. Specimens: Debridement tissue. Findings: As above. Anesthesia: General. Complications: None. Disposition: The patient tolerated the procedure in stable condition and taken to Recovery in good g eneral condition. Description Of Procedure: The patient was brought to the OR and placed in supine position. General anesthesia was begun. The patient was prepped and draped in usual sterile fashion. Then, scissors a nd curette were used to debride all of the flaps that were nonviable on the arms and size as describe d above down to the subcutaneous tissue on both sides. On the chest wall, there was a 4 x 6 cm wound that was debrided as well. Silvadene dressing was applied over here. Bleeding was controlled with cautery. In the lower extremity, all the wounds as described in the operative note were debrided davina n to the subcutaneous tissue except for the one on the left distal lateral foot, which was debrided t o the bone as bone was exposed with rongeurs. Wound was irrigated, bleeding controlled with cautery, and collagenase dressing was applied on all of the lower extremity wounds because of the fibrin pres ent. Then, sterile dressing was applied. The patient was awakened and taken to Recovery in good gen eral condition. /MODL Voice ID: [id number] Report ID: [id number]
[2019-12-10] MEDS: ATORVASTATIN 40 MG TAB PO SCH (21:54)
[2019-12-11] MEDS: PIPER/TAZO/NS 2.25gm 2.25 GM/50 ML BAG IVPB SCH ×3 (01:04→16:27)
[2019-12-11] MEDS: NA CHLORIDE 0.9% IV SCH ×2 (02:41→07:33)
[2019-12-11] MEDS: ALBUMIN HUMAN IV SCH ×2 (02:41→07:33)
[2019-12-11] MEDS: FUROSEMIDE IV SCH ×2 (02:41→07:33)
[2019-12-11 05:31] LABS: Absolute Lymphocytes (CBC) 0.7 K/uL (0.7-4.9); Basophils % 0.2 % (0-1.3); Hematocrit 21.9 % (36.0-45.0); Lymphocytes % 16.8 % (15.3-44.8); MPV 8.9 fL (7.6-11.3); RBC Red Blood Cell Count 2.51 M/uL (3.86-4.86)
[2019-12-11] MEDS: LEVOTHYROXINE SOD 0.112 MG TAB PO SCH (05:34)
[2019-12-11 05:53] LABS: Albumin 2.9 g/dL (3.4-5.0); Magnesium 1.9 mg/dL (1.8-2.4); Phosphorus 4.2 mg/dL (2.5-4.9); Potassium 3.9 mmol/L (3.5-5.1)
[2019-12-11] MEDS: INSULIN -REGULAR HUMAN 50 UNIT/0.5 ML ML SQ SCH ×4 (07:30→21:55)
[2019-12-11] MEDS: FENTANYL 50 MCG/PATCH TD SCH (08:55)
[2019-12-11] MEDS: FERROUS SULFATE 325 MG TAB PO SCH (08:57)
[2019-12-11] MEDS: GABAPENTIN 100 MG CAP PO SCH ×3 (08:57→21:54)
[2019-12-11] MEDS: METOLAZONE 5 MG TABLET PO SCH ×2 (08:57→21:55)
[2019-12-11] MEDS: SERTRALINE HCL 50 MG TAB PO SCH (08:57)
[2019-12-11] MEDS: FOLIC ACID 1 MG TABLET PO SCH (08:58)
[2019-12-11] MEDS: NIFEDIPINE XL 60 MG TABLET PO SCH (08:58)
[2019-12-11] MEDS: ISOSORBIDE MONO SR 60 MG TAB PO SCH (08:58)
[2019-12-11] MEDS: allopurinoL 100 MG TAB PO SCH ×2 (08:58→21:55)
[2019-12-11] MEDS: BUPROPION HCL XL 150 MG TAB PO SCH (08:58)
[2019-12-11] MEDS: MUPIROCIN 2% OINT 22GM TUBE TOP SCH (08:59)
[2019-12-11] MEDS: carvediloL 12.5 MG TAB PO SCH (08:59)
[2019-12-11] MEDS: HOME MED 1 EA UNK IH SCH ×2 (09:00→21:00)
[2019-12-11] MEDS: JUVEN PACKET PO SCH ×2 (09:00→21:57)
[2019-12-11] MEDS ORDERED: NA CHLORIDE 0.9% 250 ML IV SCH (09:00)
[2019-12-11] MEDS: ENSURE HIGH PROTEIN 237 ML CAN PO SCH ×2 (09:00→21:57)
[2019-12-11] MEDS: CEFTAZIDIME 1 GM in NA CHLORIDE 0.9% 100 ML IV SCH (09:00)
[2019-12-11] MEDS: COLLAGENASE 30 GM OINTMENT TOP SCH (09:00)
[2019-12-11] MEDS: INSULIN GLARGINE 100 UNITS/ML SQ SCH ×2 (09:01→21:56)
--- NOTE | 2019-12-11 09:10 | RAD REPORT ---
EXAM DESCRIPTION: MRI - Brain Wo Cont - 12/10/2019 9:08 pm CLINICAL HISTORY: AMS, memory loss COMPARISON: Head C Spine Cap Wo Con dated 12/05/2019 TECHNIQUE: Sagittal T1-weighted images were obtained along with axial PD, heavily T2-weighted and T2 -FLAIR images. Axial DWI and ADC mapping sequences were also obtained along with coronal heavily T2-w eighted images. FINDINGS: The exam has significant motion degradation limitations. No intracranial hemorrhage, mass or acute infarction. There is no edema or shift of midline structure s. No extra-axial fluid collections. Huggins-matter/white matter junction is preserved. Signal voids are seen as a normal finding in the major intracranial vessels. Mild atrophy changes are present. Chronic ischemic changes are seen in the cerebral white matter in e ach basal ganglia. The focal decreased white matter signal near the frontal horn left lateral ventric le on the CT study corresponds to chronic ischemic change on MRI imaging. No sella or supra sella abnormality. No globe or orbital content injury seen. Small scalp hematoma se en left frontal region. No underlying bone signal abnormality. No acute mastoid air cell abnormality. No air-fluid level in the sinuses. IMPRESSION: Motion degraded study shows no infarction, mass or acute intracranial finding. Mild atrophy and chronic ischemic changes are present.
--- NOTE | 2019-12-11 10:09 | PN ---
Date of Progress Note: 12/11/2019 Subjective: The patient is awake, alert. No complaint. Objective: Vitals stable, afebrile. Dressing clean dry and intact. Assessment: Status post debridement of multiple wounds, chest, arms, legs, foot. Recommendations: Continue wound care as ordered. Discharge planning. IV antibiotics for the chroni c ostia on the left foot. Follow up in the wound healing center in my clinic upon discharge. Recons t surgery p.r.n. /CELESTIEN Voice ID: [id number] Report ID: [id number]
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
[2019-12-11] MEDS: BUMETANIDE 1 MG TABLET PO SCH ×2 (13:50→21:54)
[2019-12-11] MEDS ORDERED: NA CHLORIDE 0.9% 250 ML ONE (15:31)
[2019-12-11] MEDS: FUROSEMIDE 20 MG/ 2ML VIAL IV SCH (19:39)
[2019-12-11 21:37] LABS: Hematocrit 22.7 % (36.0-45.0)
[2019-12-11] MEDS: ATORVASTATIN 40 MG TAB PO SCH (21:55)
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
[2019-12-12 05:13] LABS: Absolute Lymphocytes (CBC) 1.6 K/uL (0.7-4.9); Basophils % 0.3 % (0-1.3); Hematocrit 25.6 % (36.0-45.0); Lymphocytes % 16.2 % (15.3-44.8); MPV 8.5 fL (7.6-11.3); RBC Red Blood Cell Count 2.91 M/uL (3.86-4.86)
[2019-12-12] MEDS: LEVOTHYROXINE SOD 0.112 MG TAB PO SCH (05:30)
[2019-12-12 05:33] LABS: Albumin 2.7 g/dL (3.4-5.0); Magnesium 1.9 mg/dL (1.8-2.4); Phosphorus 3.7 mg/dL (2.5-4.9); Potassium 3.4 mmol/L (3.5-5.1)
[2019-12-12] MEDS ORDERED: D50W 25 GM/50 ML SYRINGE/VIAL IV PRN (05:42)
[2019-12-12] MEDS ORDERED: GLUCAGON 1 MG/VIAL IV PRN (05:42)
[2019-12-12] MEDS ORDERED: D50W 25 GM/50 ML SYRINGE/VIAL IV ONE (05:48)
[2019-12-12] MEDS: INSULIN -REGULAR HUMAN 50 UNIT/0.5 ML ML SQ SCH ×4 (07:30→21:00)
[2019-12-12] MEDS: FENTANYL 50 MCG/PATCH TD SCH (09:00)
[2019-12-12] MEDS: HOME MED 1 EA UNK IH SCH ×2 (09:00→21:00)
[2019-12-12] MEDS ORDERED: POTASSIUM CL SA 10 MEQ TAB PO ONE (09:00)
[2019-12-12] MEDS: CEFTAZIDIME 1 GM in NA CHLORIDE 0.9% 100 ML IV SCH (09:18)
[2019-12-12] MEDS: FERROUS SULFATE 325 MG TAB PO SCH (09:19)
[2019-12-12] MEDS: GABAPENTIN 100 MG CAP PO SCH ×3 (09:19→21:15)
[2019-12-12] MEDS: NIFEDIPINE XL 60 MG TABLET PO SCH (09:19)
[2019-12-12] MEDS: FOLIC ACID 1 MG TABLET PO SCH (09:19)
[2019-12-12] MEDS: BUMETANIDE 1 MG TABLET PO SCH ×3 (09:19→21:15)
[2019-12-12] MEDS: allopurinoL 100 MG TAB PO SCH ×2 (09:20→21:16)
[2019-12-12] MEDS: ENSURE HIGH PROTEIN 237 ML CAN PO SCH ×2 (09:20→21:17)
[2019-12-12] MEDS: JUVEN PACKET PO SCH ×2 (09:20→21:00)
[2019-12-12] MEDS: SERTRALINE HCL 50 MG TAB PO SCH (09:20)
[2019-12-12] MEDS: PIPER/TAZO/NS 2.25gm 2.25 GM/50 ML BAG IVPB SCH ×2 (10:29→16:35)
[2019-12-12] MEDS: BUPROPION HCL XL 150 MG TAB PO SCH (10:29)
[2019-12-12] MEDS: METOLAZONE 5 MG TABLET PO SCH ×2 (10:30→21:16)
[2019-12-12] MEDS: carvediloL 12.5 MG TAB PO SCH (10:32)
[2019-12-12] MEDS: ISOSORBIDE MONO SR 60 MG TAB PO SCH (10:32)
--- NOTE | 2019-12-12 11:25 | P.PN ---
Subjective Date of Service: 12/12/19 Chief Complaint: Fall, acute blood loss anemia, chest pain Patient developed hypoglycemia this morning. She is status post 5 units PRBC transfusion. Nursing staff report she has been a bit more sleepy today Bilateral lower extremity edema have significantly improved No active bleeding. Serum creatinine is relatively stable. Physical Examination - Vital Signs Temperature: 95.8 F Blood Pressure: 136/62 Pulse: 44 Respirations: 16 Pulse Ox (%): 99 - Physical Exam General: In no apparent distress HEENT: Mucous membr. moist/pink Neck: JVD not distended Respiratory: Clear to auscultation bilaterally, Normal air movement Cardiovascular: Edema (Bilateral lower extremities) Gastrointestinal: Normal bowel sounds, Soft and benign, No tenderness Musculoskeletal: Other (Bilateral lower extremity lymphedema) Integumentary: Other (Bilateral lower extremities venous stasis dermatitis) Assessment And Plan Physician Review Additional Text: A/P Acute blood-loss anemia secondary to fall Chest pain Elevated troponin Chronic diastolic congestive heart failure ARTURO on CKD stage 4 Diabetes mellitus type 2-insulin dependent Hypertension Osteomyelitis, Lower extremity wounds COPD Hyperlipidemia Acute blood-loss anemia secondary to fall -hemoglobin 5.1 in the ED, s/p 5u PRBCs. -aspirin and Plavix on hold secondary to anemia. -continue to monitor hemoglobin. Elevated troponin -cardiology input appreciated. Elevated troponin likely secondary to demand ischemia. Chronic diastolic congestive heart failure/venostasis dermatitis. -chronic pleural effusion. -off Lasix drip and albumin infusion -patient prefers Bumex over Lasix. She stated she experiences belly discomfort with the oral Lasix. -nephrology is assisting with diuretic dose adjustments. -patient started on Bumex 2 mg t.i.d. ARTURO on CKD stage 4: -Creatinine is relatively stable. -nephrology is following -patient may need hemodialysis for refractory anasarca. -monitor renal function while she is being diuresed. Diabetes mellitus type 2-insulin dependent: -episode of hypoglycemia this morning. -hold Lantus insulin -continue insulin sliding scale Hypertension: -BP meds resumed. Osteomyelitis, Lower extremity wounds -continue Zosyn and ceftazidime, 6 weeks total per ID during last hospitalization -PICC placed 11/23/19. -antibiotics day 20. -continue wound care COPD: Medications as needed for COPD. Fall: Patient was going PT. -Wound care team recommendations appreciated. -status post debridement and involved with no hematomas on the lower extremities and forearms.. -Continue wound care for venous stasis dermatitis. Hallucination -resolved -no altered mental status -could be secondary to opioid use (codeine) -Neurology input appreciated -MRI of the brain is negative for stroke. Plan of care: Skilled rehab recommended by the medical team but patient prefers to go with home health. She stated she has good support from her children and grandchildren at home. APS has been contacted to evaluate her safety at home.
[2019-12-12] MEDS: MUPIROCIN 2% OINT 22GM TUBE TOP SCH (13:48)
[2019-12-12] MEDS: COLLAGENASE 30 GM OINTMENT TOP SCH (13:48)
[2019-12-12] MEDS: ATORVASTATIN 40 MG TAB PO SCH (21:15)
[2019-12-13] MEDS: PIPER/TAZO/NS 2.25gm 2.25 GM/50 ML BAG IVPB SCH ×3 (00:05→17:34)
[2019-12-13 04:45] LABS: Basophils % 0.7 % (0-1.3); Hematocrit 23.5 % (36.0-45.0); Lymphocytes % 12.6 % (15.3-44.8); MPV 8.7 fL (7.6-11.3); RBC Red Blood Cell Count 2.66 M/uL (3.86-4.86)
[2019-12-13 04:59] LABS: Albumin 2.3 g/dL (3.4-5.0); Phosphorus 3.8 mg/dL (2.5-4.9); Potassium 4.4 mmol/L (3.5-5.1)
[2019-12-13] MEDS: LEVOTHYROXINE SOD 0.112 MG TAB PO SCH (05:30)
[2019-12-13] MEDS: INSULIN -REGULAR HUMAN 50 UNIT/0.5 ML ML SQ SCH ×4 (07:30→21:00)
[2019-12-13] MEDS: BUPROPION HCL XL 150 MG TAB PO SCH (08:54)
[2019-12-13] MEDS: METOLAZONE 5 MG TABLET PO SCH ×2 (08:54→21:42)
[2019-12-13] MEDS: BUMETANIDE 1 MG TABLET PO SCH ×3 (08:55→21:41)
[2019-12-13] MEDS: carvediloL 12.5 MG TAB PO SCH (08:55)
[2019-12-13] MEDS: allopurinoL 100 MG TAB PO SCH ×2 (08:56→21:42)
[2019-12-13] MEDS: SERTRALINE HCL 50 MG TAB PO SCH (08:56)
[2019-12-13] MEDS: GABAPENTIN 100 MG CAP PO SCH ×3 (08:56→21:42)
[2019-12-13] MEDS: NIFEDIPINE XL 60 MG TABLET PO SCH (08:56)
[2019-12-13] MEDS: ISOSORBIDE MONO SR 60 MG TAB PO SCH (08:56)
[2019-12-13] MEDS: FOLIC ACID 1 MG TABLET PO SCH (08:56)
[2019-12-13] MEDS: FERROUS SULFATE 325 MG TAB PO SCH (08:56)
[2019-12-13] MEDS: CEFTAZIDIME 1 GM in NA CHLORIDE 0.9% 100 ML IV SCH (08:57)
[2019-12-13] MEDS: JUVEN PACKET PO SCH ×2 (08:58→21:43)
[2019-12-13] MEDS: HOME MED 1 EA UNK IH SCH ×2 (08:58→21:00)
[2019-12-13] MEDS: ENSURE HIGH PROTEIN 237 ML CAN PO SCH ×2 (08:59→21:43)
[2019-12-13] MEDS: MUPIROCIN 2% OINT 22GM TUBE TOP SCH (08:59)
[2019-12-13] MEDS: COLLAGENASE 30 GM OINTMENT TOP SCH (09:00)
--- NOTE | 2019-12-13 14:00 | P.PN ---
Subjective Date of Service: 12/13/19 Chief Complaint: Fall, acute blood loss anemia, chest pain Patient not eating much and developing morning hypoglycemia Hemoglobin is stable from yesterday She is complaining of pain in the bilateral lower extremity and not able to move her legs much due to pain. It appears her lower extremities are more swollen today compared to yesterday. No active bleeding. Serum creatinine continued to climb up slowly. Physical Examination - Vital Signs Temperature: 97.3 F Blood Pressure: 156/68 Pulse: 57 Respirations: 18 Pulse Ox (%): 91 - Physical Exam General: In no apparent distress, Other (Frail) Neck: JVD not distended Respiratory: Diminished (Bilateral lungs) Cardiovascular: Regular rate/rhythm, Normal S1 S2, Edema (Up to the thighs bilaterally) Gastrointestinal: Normal bowel sounds, Soft and benign, Non-distended Musculoskeletal: Swelling (Bilateral lower extremites) Integumentary: Venous stasis ulcer, Other (Bilateral lower extremity venostasis dermatitis.) Neurological: Other (Nonfocal.) Assessment And Plan Physician Review Additional Text: A/P Acute blood-loss anemia secondary to fall Chest pain Elevated troponin Chronic diastolic congestive heart failure ARTURO on CKD stage 4 Diabetes mellitus type 2-insulin dependent Hypertension Osteomyelitis, Lower extremity wounds COPD Hyperlipidemia Acute blood-loss anemia secondary to fall -hemoglobin 5.1 in the ED, s/p 5u PRBCs. -aspirin and Plavix on hold secondary to anemia. -continue to monitor hemoglobin. -hemoglobin appear stable Elevated troponin -cardiology input appreciated. Elevated troponin likely secondary to demand isc hemia. Chronic diastolic congestive heart failure/venostasis dermatitis. -chronic pleural effusion. -off Lasix drip and albumin infusion -patient prefers Bumex over Lasix. She stated she experiences belly discomfort with the oral Lasix. -looks like she is not diuresing well with the Bumex and metolazone -nephrology is assisting with diuretic dose adjustments. ARTURO on CKD stage 4: -Creatinine creeping up slowly. -nephrology is following -patient may need hemodialysis for refractory anasarca. -monitor renal function while she is being diuresed. Diabetes mellitus type 2-insulin dependent: -multiple episodes of morning hypoglycemia. -patient not eating well. -Lantus insulin on hold. -continue insulin sliding scale Hypertension: -BP meds resumed. Osteomyelitis, Lower extremity wounds -continue Zosyn and ceftazidime, 6 weeks total per ID during last hospital ization -PICC placed 11/23/19. -antibiotics day 20. -continue wound care COPD: Medications as needed for COPD. Fall: Patient was going PT. -Wound care team recommendations appreciated. -status post debridement of multiple bilateral forearm and lower extremity skin tears and hematomas. -Continue wound care for venous stasis dermatitis. Hallucination -resolved -no altered mental status -could be secondary to opioid use (codeine) -Neurology input appreciated -MRI of the brain is negative for stroke. Plan of care: Skilled rehab recommended by the medical team but patient prefers to go with home health. She stated she has good support from her children and grandchildren at home. APS has been contacted to evaluate her safety at home. Awaiting APS input.
[2019-12-13] MEDS: ONDANSETRON 4 MG/2 ML VIAL IV PRN (15:07)
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
[2019-12-13] MEDS: ATORVASTATIN 40 MG TAB PO SCH (21:42)
[2019-12-14] MEDS: PIPER/TAZO/NS 2.25gm 2.25 GM/50 ML BAG IVPB SCH ×3 (01:48→17:01)
--- NOTE | 2019-12-14 04:53 | PN ---
Date of Progress Note: 12/13/2019 Chief Complaint: Advanced chronic kidney disease, cardiorenal syndrome, congestive heart failure, ac jesenia on chronic. Subjective: The patient is on Lasix, metolazone. There is high BUN creatinine ratio secondary to di uretic. The patient remains somewhat fluid overloaded. The patient is on modified dose of Lasix and metolazone. She has nonoliguric urine output. Review of Systems: The patient is lethargic. Denies PND or orthopnea. Review of systems is unobtainable. Physical Examination: Lungs: Few crackles at bases. Heart: S1, S2. No pericardial friction rub. Abdomen: Soft, benign, nontender. Extremities: . Assessment/plan: 1.Acute on chronic kidney injury with nephrotic range proteinuria, superimposed diabetic kidney dise ase, anasarca, fluid overload. Previous workup was negative for vasculitis. The patient has diabeti c kidney disease. Continue insulin. Continue Lasix for adequate volume control. The patient althou gh may need dialysis to be started in the near future. 2.Hypertension. Blood pressure controlled. 3.Diabetes mellitus with renal manifestation. 4.High BUN and creatinine ratio. Monitor electrolytes and proteinuria. The patient may benefit fro m BLAYNE inhibitor. BUN and creatinine ratio is improved. The patient although will require dialysis in the near future. JONNY/AUSTYNL Voice ID: [id number] Report ID: [id number]
[2019-12-14 05:28] LABS: Potassium 4.5 mmol/L (3.5-5.1)
[2019-12-14 05:29] LABS: Albumin 2.1 g/dL (3.4-5.0); Phosphorus 3.8 mg/dL (2.5-4.9)
[2019-12-14] MEDS: LEVOTHYROXINE SOD 0.112 MG TAB PO SCH (05:45)
[2019-12-14] MEDS: ONDANSETRON 4 MG/2 ML VIAL IV PRN (06:05)
[2019-12-14] MEDS: INSULIN -REGULAR HUMAN 50 UNIT/0.5 ML ML SQ SCH ×4 (07:30→21:00)
--- NOTE | 2019-12-14 08:56 | P.PN ---
Subjective Date of Service: 12/14/19 Chief Complaint: Fall, acute blood loss anemia, chest pain Subjective: No new changes (continues to be breathing comfortably, feels swelling is "ok", didn't sleep well due to loud patient down the esteban) Physical Examination - Vital Signs Temperature: 97.0 F Blood Pressure: 121/58 Pulse: 55 Respirations: 16 Pulse Ox (%): 90 - Physical Exam General: Alert, In no apparent distress HEENT: Other (multiple abrasions on face, non-bleeding) Neck: JVD not distended Respiratory: Diminished (at bases, otherwise clear) Cardiovascular: Regular rate/rhythm, Edema (bilaterally up to thighs) Gastrointestinal: Soft and benign, No tenderness Musculoskeletal: Other Integumentary: Other (multiple abrasions on arms. b/l lower legs wrapped in BLAYNE bandage) Neurological: Normal speech, Normal affect Assessment & Plan Physician Review: Patient Assessed, Agree with Above Assessment and Plan Physician Review Additional Text: A/P Acute blood-loss anemia secondary to fall Chronic diastolic congestive heart failure ARTURO on CKD stage 4 Chest pain Elevated troponin Diabetes mellitus type 2-insulin dependent Hypertension Osteomyelitis, Lower extremity wounds COPD Hyperlipidemia Acute blood-loss anemia secondary to fall -hemoglobin 5.1 in the ED, s/p 5u PRBCs. -aspirin and Plavix on hold secondary to anemia. -continue to monitor hemoglobin, pending this AM Chronic diastolic congestive heart failure/venostasis dermatitis. -chronic pleural effusion. -off Lasix drip and albumin infusion, on Bumex 2mg TID -patient prefers Bumex over Lasix. She stated she experiences belly discomfort with the oral Lasix. -nephrology is assisting with diuretic dose adjustments. ARTURO on CKD stage 4: -Creatinine continues to increase -nephrology is following -patient may need hemodialysis for refractory anasarca, pt stats she understands -monitor renal function while she is being diuresed. Chest pain, Elevated troponin -cardiology input appreciated. Elevated troponin likely secondary to demand ischemia. Diabetes mellitus type 2-insulin dependent: -multiple episodes of morning hypoglycemia. -patient not eating well. -Lantus insulin on hold. -continue insulin sliding scale Hypertension: -BP meds resumed. Osteomyelitis, Lower extremity wounds -continue Zosyn and ceftazidime, 6 weeks total per ID during last hospitalization -PICC placed 11/23/19. -antibiotics day 22. -continue wound care COPD: Medications as needed for COPD. Fall: -Wound care team recommendations appreciated. -status post debridement of multiple bilateral forearm and lower extremity skin tears and hematomas. -Continue wound care for venous stasis dermatitis. -PT/OT Hallucination -resolved, no altered mental status -could be secondary to opioid use (codeine) -MRI of the brain is negative for stroke. -Neurology input appreciated Plan of care: Skilled rehab recommended by the medical team but patient prefers to go with home health. She stated she has good support from her children and grandchildren at home. APS has been contacted to evaluate her safety at home. Awaiting APS input. Time Spent Managing Pts Care (In Minutes): 35
[2019-12-14] MEDS: ENSURE HIGH PROTEIN 237 ML CAN PO SCH ×2 (09:00→20:29)
[2019-12-14] MEDS: JUVEN PACKET PO SCH ×2 (09:00→20:29)
[2019-12-14] MEDS: COLLAGENASE 30 GM OINTMENT TOP SCH (09:00)
[2019-12-14] MEDS: HOME MED 1 EA UNK IH SCH ×2 (09:00→20:29)
[2019-12-14] MEDS: MUPIROCIN 2% OINT 22GM TUBE TOP SCH (09:00)
[2019-12-14] MEDS: BUMETANIDE 1 MG TABLET PO SCH ×3 (09:19→20:26)
[2019-12-14] MEDS: METOLAZONE 5 MG TABLET PO SCH ×2 (09:20→20:26)
[2019-12-14] MEDS: BUPROPION HCL XL 150 MG TAB PO SCH (09:20)
[2019-12-14] MEDS: SERTRALINE HCL 50 MG TAB PO SCH (09:20)
[2019-12-14] MEDS: carvediloL 12.5 MG TAB PO SCH (09:20)
[2019-12-14] MEDS: GABAPENTIN 100 MG CAP PO SCH ×3 (09:20→20:27)
[2019-12-14] MEDS: allopurinoL 100 MG TAB PO SCH ×2 (09:20→20:27)
[2019-12-14] MEDS: CEFTAZIDIME 1 GM in NA CHLORIDE 0.9% 100 ML IV SCH (09:21)
[2019-12-14] MEDS: FERROUS SULFATE 325 MG TAB PO SCH (09:21)
[2019-12-14] MEDS: ISOSORBIDE MONO SR 60 MG TAB PO SCH (09:21)
[2019-12-14] MEDS: FOLIC ACID 1 MG TABLET PO SCH (09:21)
[2019-12-14] MEDS: NIFEDIPINE XL 60 MG TABLET PO SCH (09:25)
[2019-12-14 10:02] LABS: Absolute Lymphocytes (CBC) 1.4 K/uL (0.7-4.9); Basophils % 0.8 % (0-1.3); Hematocrit 22.8 % (36.0-45.0); Lymphocytes % 17.3 % (15.3-44.8); MPV 9.1 fL (7.6-11.3); RBC Red Blood Cell Count 2.57 M/uL (3.86-4.86)
[2019-12-14] MEDS ORDERED: NA CHLORIDE 0.9% 250 ML IV SCH (12:00)
[2019-12-14] MEDS ORDERED: NA CHLORIDE 0.9% 250 ML ONE (15:18)
[2019-12-14 20:02] LABS: Hematocrit 24.3 % (36.0-45.0)
[2019-12-14] MEDS: ATORVASTATIN 40 MG TAB PO SCH (20:27)
--- NOTE | 2019-12-14 22:06 | PN ---
Date of Progress Note: 12/14/2019 Subjective: The patient was admitted with anasarca, recurrent falls. The patient refused to be placed in any snf. The patient is still weak for ambulation. Physical Examination: Vital Signs: When I saw the patient, blood pressure 129/57, pulse of 56, afebrile. The patient still has good urine output that started to decline in the last couple of days. The patient had only 400 and positive over 1 L. Chest: Crackles bilateral. Heart: S1, S2. Systolic murmur. Abdomen: Soft, nontender. Extremities: +3 edema. Dressing on both legs. Laboratory Data: H and H 8.2/24.3. Sodium 136, potassium 4.5, bicarb 32, BUN 98, creatinine 3.7, calcium 7.7, phosphorus 3.8, albumin 2.1. Corrected calcium is 8.9. Current Medications: The patient on its include; 1. Ceftazidime. 2. Zosyn. 3. Ferrous sulfate. 4. Atorvastatin. 5. Carvedilol 12.5 b.i.d. 6. Isosorbide. 7. Nifedipine. 8. Fentanyl. 9. Gabapentin 200 t.i.d. 10. Zoloft. 11. Bumex 2 mg t.i.d. 12. Metolazone 5 mg b.i.d. 13. Levothyroxine. Assessment And Plan: 1. Chronic kidney disease, slow progression to end-stage renal disease, over volume. I am going to initiate dialysis. I had long discussion with the patient regarding the need to initiate renal replacement therapy to better control her fluid status as the patient started being oliguric on max doses of diuresis. The patient verbalized understanding. We will consult Surgery for placement of PermCath and we will consult social insurance analyst for placement of outpatient dialysis. 2. Hypertension. We will utilize the blood pressure for more ultrafiltration. I am going to go ahead and discontinue the nifedipine to allow more room for the blood pressure for the surgery and ultrafiltration. 3. Cellulitis. Continue current antibiotic. Follow up with the primary. 4. Anasarca, multifactorial, secondary to renal failure secondary to congestive heart failure and hypothyroidism. Levothyroxine has been increased recently. We will continue to monitor. We will start the patient on renal replacement therapy and we will challenge the patient. time spent to coordinate the care , discussing with other team meember the care , face to face with the patient and discussed the plan with patient , placing order 35 min GAMA Voice ID: [id number] Report ID: [id number] AZUCENA
[2019-12-15] MEDS: PIPER/TAZO/NS 2.25gm 2.25 GM/50 ML BAG IVPB SCH ×3 (01:06→17:19)
[2019-12-15] MEDS ORDERED: CODEINE 30MG/APAP 300MG TAB PO PRN (03:39)
[2019-12-15 05:27] LABS: Hematocrit 23.7 % (36.0-45.0); MPV 8.5 fL (7.6-11.3); RBC Red Blood Cell Count 2.64 M/uL (3.86-4.86)
[2019-12-15 05:43] LABS: Albumin 2.1 g/dL (3.4-5.0); Phosphorus 4.1 mg/dL (2.5-4.9); Potassium 4.3 mmol/L (3.5-5.1)
[2019-12-15] MEDS: LEVOTHYROXINE SOD 0.112 MG TAB PO SCH (05:49)
[2019-12-15] MEDS: INSULIN -REGULAR HUMAN 50 UNIT/0.5 ML ML SQ SCH ×4 (07:30→21:00)
[2019-12-15] MEDS: HOME MED 1 EA UNK IH SCH ×2 (09:00→21:00)
[2019-12-15] MEDS: COLLAGENASE 30 GM OINTMENT TOP SCH (09:00)
[2019-12-15] MEDS: GABAPENTIN 100 MG CAP PO SCH ×3 (09:00→22:10)
[2019-12-15] MEDS: carvediloL 12.5 MG TAB PO SCH (09:00)
[2019-12-15] MEDS: MUPIROCIN 2% OINT 22GM TUBE TOP SCH (09:00)
[2019-12-15] MEDS: BUMETANIDE 1 MG TABLET PO SCH ×3 (09:00→22:10)
[2019-12-15] MEDS: ENSURE HIGH PROTEIN 237 ML CAN PO SCH ×2 (09:00→21:00)
--- NOTE | 2019-12-15 09:13 | P.PN ---
Subjective Date of Service: 12/15/19 Chief Complaint: Fall, acute blood loss anemia, chest pain Subjective: Improving (feeling better today, breathing comfortably. Still having some mild bleeding from lower lip) Review of Systems 10-point ROS is otherwise unremarkable Physical Examination - Vital Signs Temperature: 96.5 F Blood Pressure: 118/50 Pulse: 55 Respirations: 19 Pulse Ox (%): 92 - Physical Exam General: Alert, In no apparent distress HEENT: Other (healing abrasions on face, mild bleed on lower lip) Neck: Supple, JVD not distended Respiratory: Clear to auscultation bilaterally, Normal air movement Cardiovascular: Regular rate/rhythm, Edema (Bilateral 2+ up to the thighs) Gastrointestinal: Soft and benign, Non-distended, No tenderness Musculoskeletal: Tenderness (Mild on bilateral lower extremities) Integumentary: Other (Lower extremities wrapped with Pedro bandages) Neurological: Normal speech, Normal affect Assessment & Plan Physician Review Additional Text: A/P Acute blood-loss anemia secondary to fall Chronic diastolic congestive heart failure ARTURO on CKD stage 4 Chest pain Elevated troponin Diabetes mellitus type 2-insulin dependent Hypertension Osteomyelitis, Lower extremity wounds COPD Hyperlipidemia Acute blood-loss anemia secondary to fall -hemoglobin 5.1 in the ED, s/p 5u PRBCs. -aspirin and Plavix on hold secondary to anemia. -continue to monitor hemoglobin, pending this AM Chronic diastolic congestive heart failure/venostasis dermatitis. -chronic pleural effusion. -off Lasix drip and albumin infusion, on Bumex 2mg TID -patient prefers Bumex over Lasix. She stated she experiences belly discomfort with the oral Lasix. -nephrology is assisting with diuretic dose adjustments. Patient has been oliguric past several days ARTURO on CKD stage 4: -Creatinine continues to increase -nephrology is following -patient to get dialysis catheter placed today -seems receptive to the fact that she may need dialysis long-term Chest pain, Elevated troponin -cardiology input appreciated. Elevated troponin likely secondary to demand ischemia. Diabetes mellitus type 2-insulin dependent: -multiple episodes of morning hypoglycemia. -patient not eating well, Lantus insulin on hold. -continue insulin sliding scale Hypertension: -BP meds have been held due to low blood pressure and aggressive diuresis Osteomyelitis, Lower extremity wounds -continue Zosyn and ceftazidime, 6 weeks total per ID during last hospitalization -PICC placed 11/23/19. -antibiotics day 23. -continue wound care COPD: Medications as needed for COPD. Fall: -Wound care team recommendations appreciated. -status post debridement of multiple bilateral forearm and lower extremity skin tears and hematomas. -Continue wound care for venous stasis dermatitis. -PT/OT Hallucination, resolved -could be secondary to opioid use (codeine) -MRI of the brain is negative for stroke. Plan of care: Skilled rehab recommended by the medical team but patient prefers to go with home health. She stated she has good support from her children and grandchildren at home. Adult protective Services was being looked into dialysis catheter placement today Time Spent Managing Pts Care (In Minutes): 35
[2019-12-15] MEDS: CEFTAZIDIME 1 GM in NA CHLORIDE 0.9% 100 ML IV SCH (09:27)
[2019-12-15] MEDS: HEPARIN 5000 UNIT/ML 1 ML VIAL ONE ×2 (09:34→10:26)
[2019-12-15] MEDS ORDERED: NA CHLORIDE 0.9% 0 ML IV ONE (09:35)
[2019-12-15] MEDS ORDERED: LIDOCAINE 1% MPF 30 ML VIAL ONE (09:35)
--- NOTE | 2019-12-15 09:42 | CON ---
Date of Consultation: 12/14/2019 Reason For Consultation: Placement of a tunneled hemodialysis catheter. History Of Present Illness: This is the case of a 64-year-old patient admitted to the hospital not t oo long ago for multiple medical problems, even ulcer debridements. Apparently, she fell a more than a week ago and they have been working with her. She has a cardiorenal syndrome. She has history of heart disease and also kidney disease, now need of hemodialysis and they asked me to place this. e hemodialysis catheter initially was Dr. Corona. He has been done surgeries on her last week, but he has been not available this week, so they asked Dr. Nayak, but he kindly asked me to see if I can take the patient and I am happy to do so. Past Medical History: Include congestive heart failure, hypertensive heart and kidney disease, diabe liz, history of CABG, COPD, failure to thrive. Social History: She does not smoke. She does not drink alcohol. Family History: Hypertension and diabetes. Review of Systems: Ten points otherwise unremarkable. Physical Examination: General: The patient is awake and alert. Neck: Supple. Chest: Bilateral breath sounds. Abdomen: Soft and depressible. No guarding or rebound. Laboratory Data: She has been anemic on and off. She has been receiving blood transfusion right now , the last one we have a 7.4, but she is right now getting blood as we speak. Platelets of 111. INR is 1.34. Sodium is 136. Assessment: A 64-year-old patient in need of hemodialysis catheter. Benefits, alternatives, and ris ks of that fully explained to the patient which include, but not limited to infection, bleeding, maddy ge to adjacent structures, anesthesia complication, pneumothorax, hemothorax, [place] and even . She also understands this may not relieve any symptoms. She may need more than one surgical interventio n. She understands also the risks of pneumothorax, pericardiac tamponade, clot, DVTs, pulmonary embo li, understand the importance of keeping this catheter clean and be compliant with treatment. She un derstand all her medical history and all risk for any surgical intervention, but at same time hemodia lysis catheter is needed. So, we are going to do under control setting in OR. HM/MODL Voice ID: [id number] Report ID: [id number]
[2019-12-15] MEDS ORDERED: NA CHLORIDE 0.9% 500 ML ONE (09:44)
[2019-12-15] MEDS ORDERED: propofoL 200 MG/20 ML VIAL IV ONE (10:08)
[2019-12-15] MEDS ORDERED: LIDOCAINE 2% MPF 5 ML VIAL ONE (10:08)
[2019-12-15] MEDS ORDERED: MIDAZOLAM HCL 2 MG/2 ML INJ ONE (10:08)
--- NOTE | 2019-12-15 11:08 | P.BOP ---
Preoperative diagnosis: ESRD Postoperative diagnosis: same Primary procedure: 1. Right neck ultrasound Secondary procedure: 2. Interpratation of fluoroscopy Other procedure(s): 3. Attempted hemodialisis catheter placement right neck Application Development Intern: System,system Anesthesia: MAC Complications: None Condition: Good
[2019-12-15 11:13] VITALS: O2SAT 100
--- NOTE | 2019-12-15 11:53 | RAD REPORT ---
EXAM DESCRIPTION: RAD - Chest Single View - 12/15/2019 11:41 am CLINICAL HISTORY: unsuccessful HD cath insertion Chest pain. COMPARISON: Chest Single View dated 12/07/2019; Chest Single View dated 11/30/2019; Chest Single View da merna 11/23/2019; Chest Single View dated 11/20/2019 FINDINGS: Portable technique limits examination quality. No postprocedure pneumothorax seen. Right pleural effusion is unchanged since comparative study. The heart is mildly prominent with sternotomy wires present.Left-sided PICC line is unchanged in position . IMPRESSION: No postprocedure pneumothorax.
--- NOTE | 2019-12-15 12:35 | RAD REPORT ---
EXAM DESCRIPTION: RAD - Fluoroscopy <1 Hour - 12/15/2019 12:24 pm CLINICAL HISTORY: Venous catheter insertion. INSERTION OF HEMODIALYSIS CATH COMPARISON: Fluoroscopy <1 Hour dated 11/04/2018 FINDINGS: Fluoroscopy time: 0.2 minutes
--- NOTE | 2019-12-15 12:43 | PN ---
Date of Progress Note: 12/15/2019 Subjective: The patient was admitted with anasarca, fall. The patient is being on diuresis, started having low urine output and uremic symptoms. The patient was referred for PermCath placement today. Apparently failed placement as the patient had multiple arterial graft and has possible internal jugular stenosis. Physical Examination: Vital Signs: When I saw the patient, the patient was sleepy. Blood pressure 137/57, pulse of 52, afebrile. Had urine output of 400. Chest: Crackles bilateral. Heart: S1, S2. Regular. Systolic murmur. Abdomen: Soft, nontender, ascites. Extremities: +3 edema. Dressing on both legs. Neuro: Sleepy after sedation for the surgery. No focality. Laboratory Data: WBC 6.5, H and H 8/23.7, platelet 81. Sodium 136, potassium 4.3, bicarb 32, BUN 102, creatinine 3.9, GFR of 12, calcium 7.8, phos 4.1, albumin 2.1. Corrected calcium is 9. Current Medications: Include Zosyn, ceftazidime, Ferrous sulfate, carvedilol 12.5, isosorbide 60, gabapentin, fentanyl 50, Zoloft, Bumex 2 mg t.i.d., metolazone 5 mg b.i.d., Zofran, folic acid. Assessment And Plan: 1. Chronic kidney disease, stage 4, progression to end-stage renal disease required to initiate dialysis with uremic symptoms and over volume. Unfortunately could not place access by the surgery today. We will consider transfer for IR/vascular surgery. 2. Hypertension. Currently controlled, optimal. We will utilize blood pressure for more ultrafiltration and diuresis. 3. Anasarca, multifactorial, cardiorenal/hypothyroidism. As above continue levothyroxine. Continue diuresis. Plan for dialysis. 4. Cellulitis. Continue current antibiotic. We will follow up with the primary. 5. Deconditioning. Continue PT, OT. time spent to coordinate the care , discussing with other team meember the care , face to face with the patient and discussed the plan with patient , placing order 35 min NATI/CELESTINE Voice ID: [id number] Report ID: [id number] [facility] MED[facility] CENTERDannielle
--- NOTE | 2019-12-15 13:13 | OP ---
Date of Procedure: 12/15/2019 Surgeon: Mukesh Meadows MD Preoperative Diagnoses: End-stage renal disease, cardiac disease, peripheral vascular disease. Postoperative Diagnoses: End-stage renal disease, cardiac disease, peripheral vascular disease. Procedures: 1.Right neck ultrasound. 2.Interpretation of fluoroscopy. 3.Attempt tunneled hemodialysis catheter on the right internal jugular vein. Anesthesia: MAC. Indications: This is a case of a 64-year-old patient with multiple medical problems. The patient bradshaw s admitted to the hospital initially with history of fall. The patient has extensive history of card iac disease, peripheral vascular disease, now with renal failure too. The hemodialysis catheter was request. This should be done in OR. Since, the patient has multiple issues and we need all the equi pment we can, so we suggest doing this in surgery. Benefits, alternatives, and risks including, but not limited to infection, bleeding, damage to adjacent structures, anesthesia complication, pneumotho rax, hemothorax, PE, DVT, [place], and even . They also understands this may not relieve any symptom s. She might need more than one surgical intervention, she understood. Also the chance of pneumotho rax, hemothorax, pericarditis, [place], and even . The patient understand this is temporary catheter and she has to have more permanent access in the future. Description Of Procedure: The patient was brought to the operating room, placed in supine position. Anesthesia was done without complication. Right neck and chest were prepped and draped in a sterile fashion. Ultrasound was done over the area to identify the internal jugular vein. The patient has a very large external jugular vein. The patient placed in Trendelenburg position. Under fluoroscopy guidance, we cannulized internal jugular vein, but we cannot pass the wire through it. We trying to protect the carotid and external jugular at any time. Once again, we put the needle under ultrasoun d machine and aspiration shows venous sample, but the wire end up to the area of the neck and fluoros copy we cannot pass into the superior vena cava. At that moment, this procedure was aborted. There is might be some abnormalities in that area that needs to be study first. The patient tolerated the procedure well. At that moment, we examined the groin area for possibility of once again temporary d ialysis catheter since she is needed. The family premises that they have some complications after va scular surgery in the left groin, not to go there, so we have the right groin to go. I want to do ev aluation of that with an ultrasound. The patient has what looks like a graft in that region with als o some abnormal configuration of the blood vessels and I believe it is not going to be safe to go to the area at this institution. So, I once again did not attempt the right groin because I believe bisi t need to be examined first. So, we cancel the procedure, did not complete. The patient was sent to recovery in stable condition. I call the primary doctor, I call the patient's daughter again and al so contact the renal doctor. They need to try over this patient to have a level of care to have this procedure done, since it will not be done in this institution. We going to get an x-ray as a protoc ol. JOEL/CELESTINE Voice ID: [id number] Report ID: [id number]
[2019-12-15] MEDS: ISOSORBIDE MONO SR 60 MG TAB PO SCH (14:17)
[2019-12-15] MEDS: SERTRALINE HCL 50 MG TAB PO SCH (14:17)
[2019-12-15] MEDS: FOLIC ACID 1 MG TABLET PO SCH (14:17)
[2019-12-15] MEDS: FERROUS SULFATE 325 MG TAB PO SCH (14:17)
[2019-12-15] MEDS: allopurinoL 100 MG TAB PO SCH ×2 (14:17→22:10)
[2019-12-15] MEDS: BUPROPION HCL XL 150 MG TAB PO SCH (14:18)
[2019-12-15] MEDS: METOLAZONE 5 MG TABLET PO SCH ×2 (14:18→22:10)
[2019-12-15] MEDS: JUVEN PACKET PO SCH ×2 (14:20→21:00)
[2019-12-15] MEDS ORDERED: FENTANYL 50 MCG/PATCH TD SCH (16:00)
[2019-12-15] MEDS: FENTANYL 50 MCG/PATCH TD SCH (17:17)
[2019-12-15] MEDS: ATORVASTATIN 40 MG TAB PO SCH (22:10)
--- NOTE | 2019-12-15 22:27 | P.DS ---
Admission Date: 12/08/19 Discharge Date: 12/15/19 Disposition: TRANSFER TO [facility] Discharge Condition: FAIR Reason for Admission: Fall, acute blood loss anemia, chest pain Consultations: Nephrology- Dr. Gunderson General surgery-Dr. Meadows Wound care and debridement-Dr. Corona Procedures: CT head and C-spine CAP CLINICAL HISTORY: Head and neck injury with chest and abdominal pain status post fall COMPARISON: June 2019 FINDINGS: An intracranial bleed is not seen. The ventricles are normal in caliber. An extra-axial fluid collection is not noted. . Fluid within the sinuses/mastoids is not seen. A cervical fracture is not seen. No dislocation is noted. Herniations involve several levels involving mid and distal cervical spine The evaluation of mediastinum, wong, vessels, solid organs and bowel are limited secondary to the lack of contrast administration. A mediastinal hematoma is not noted. Moderate right pleural effusion mildly enlarged the prior exam. Small left pleural effusion. Minimal tree-in-bud opacities left upper lobe. No pulmonary contusion. Subacute fracture upper right rib. The liver,spleen, pancreas, adrenals,kidneys and bladder do not demonstrate a traumatic injury. Diffuse edema within subcutaneous tissues. Atherosclerotic disease. Moderate ascites without significant change. Renal osteodystrophy suspected IMPRESSION: 1. No acute intracranial abnormality is seen. 2. A cervical fracture is not visualized. If the patient continues have symptoms to suggest intracranial/spinal cord pathology MRI be recommended 3. No acute traumatic abnormality involving the chest/abdomen/pelvis. Maxillofacial CT FINDINGS: A fracture is not seen. A TMJ dislocation is not noted. The globes are intact. Fluid within the sinuses is not seen. IMPRESSION: Negative for a facial fracture. Chest x-ray FINDINGS: Left lung field is clear. Right upper lung field is clear. Interstitial pattern matches comparison. Heart size is prominent but stable. Upper lobe vasculature within normal limits. Large right pleural effusion is present not substantially different from the comparison. No measurable left-sided pleural effusion. Sternotomy wires are in place. Left upper extremity PICC line still in place. No acute bony abnormality seen. No acute aortic findings suspected. IMPRESSION: Large right pleural effusion similar to November 29 imaging. Brain MRI without contrast FINDINGS: The exam has significant motion degradation limitations. No intracranial hemorrhage, mass or acute infarction. There is no edema or shift of midline structures. No extra-axial fluid collections. Huggins-matter/white matter junction is preserved. Signal voids are seen as a normal finding in the major intracranial vessels. Mild atrophy changes are present. Chronic ischemic changes are seen in the cerebral white matter in each basal ganglia. The focal decreased white matter signal near the frontal horn left lateral ventricle on the CT study corresponds to chronic ischemic change on MRI imaging. No sella or supra sella abnormality. No globe or orbital content injury seen. Small scalp hematoma seen left frontal region. No underlying bone signal abnormality. No acute mastoid air cell abnormality. No air-fluid level in the sinuses. IMPRESSION: Motion degraded study shows no infarction, mass or acute intracranial finding. Mild atrophy and chronic ischemic changes are present. Attempted dialysis catheter placement General surgery attempted dialysis catheter placement today, initial temp in the right EJ under ultrasound guidance was unsuccessful due to possible stenosis or vascular anomaly. Right from oral was also visualized with some abnormality. General surgery delete patient would benefit from higher level of care for dialysis catheter placement. Procedure was abandoned. Medical problem list End-stage renal disease likely requiring chronic dialysis Acute blood-loss anemia secondary to fall Chronic diastolic congestive heart failure Chest pain Elevated troponin Diabetes mellitus type 2-insulin dependent Hypertension Osteomyelitis lower extremity wounds COPD Hyperlipidemia Brief History of Present Illness: Patient was admitted to the hospital after having a mechanical fall with a large amount of blood loss. Patient was initially anemic due to acute blood loss anemia with a hemoglobin of 5.1. Patient also found to have anasarca secondary to chronic diastolic congestive heart failure and chronic kidney disease. Patient was admitted for further management. Hospital Course: Patient was admitted to the hospital after having a mechanical fall with a large amount of blood loss. Patient was initially anemic due to acute blood loss anemia with a hemoglobin of 5.1. Patient also found to have anasarca secondary to chronic diastolic congestive heart failure and chronic kidney disease. Patient was admitted for further management. Patient also with multiple wounds to forearms and lower extremities, had been seen by infectious disease previously who recommended 6 weeks of antibiotics. Patient is currently on week 4 of antibiotics. Patient renal function worsened during her stay progressing from stage IV chronic kidney disease to end-stage renal disease. Patient was transfused multiple units of packed red blood cells during her stay, current hemoglobin is 8.0. Mild bleeding from lip still noted. Patient was given both Bumex and Lasix during her stay but started to have decreased urine output and uremic symptoms. For this reason it was determined that she would benefit from dialysis. Today patient was taken to operating room with General Surgery for dialysis catheter placement. During the procedure the general surgeon was unable to cannulate the right internal jugular or femoral veins, see surgeon's report for further details. Procedure had to be abandoned. General surgery recommended transfer to higher level of care and possible interventional radiology/vascular surgeon for dialysis catheter placement. Transfer was init iated to [facility] for further management at this time. Patient is stable for transfer this time, heart rate, blood pressure stable. Vital Signs/Physical Exam: Temp Pulse Resp BP Pulse Ox 96.7 F L 61 19 133/70 95 12/15/19 16:00 12/15/19 16:00 12/15/19 17:17 12/15/19 16:00 12/15/19 17:17 General: Alert, In no apparent distress, Oriented x3 HEENT: Atraumatic, Normocephalic Neck: Supple Respiratory: Crackles/rales (Bilateral) Cardiovascular: Edema (3+ pitting edema bilateral lower extremities currently dressed for wound care.), Systolic murmur Capillary refill: <2 Seconds Gastrointestinal: Normal bowel sounds, Soft and benign, Ascites Musculoskeletal: Other (Wounds as noted previously, currently dressed.) Integumentary: Other (Wounds as noted previously, currently dressed.) Neurological: Normal speech, Normal strength at 5/5 x4 extr, Normal tone, Sensation intact Laboratory Data at Discharge: WBC 6.5 K/uL (4.3-10.9) D 12/15/19 05:05 Hgb 8.0 g/dL (12.0-15.0) L 12/15/19 05:05 Hct 23.7 % (36.0-45.0) L 12/15/19 05:05 Plt Count 81 K/uL (152-406) L D 12/15/19 05:05 PT 15.7 SECONDS (9.5-12.5) H 12/06/19 03:30 INR 1.34 12/06/19 03:30 Sodium 136 mmol/L (136-145) 12/15/19 05:05 Potassium 4.3 mmol/L (3.5-5.1) 12/15/19 05:05 BUN 102 mg/dL (7-18) H 12/15/19 05:05 Creatinine 3.92 mg/dL (0.55-1.3) H 12/15/19 05:05 Glucose 79 mg/dL (74-106) 12/15/19 05:05 Phosphorus 4.1 mg/dL (2.5-4.9) 12/15/19 05:05 Magnesium 1.9 mg/dL (1.8-2.4) 12/12/19 05:05 Total Bilirubin 0.5 mg/dL (0.2-1.0) 12/07/19 04:39 AST 26 U/L (15-37) 12/07/19 04:39 ALT 11 U/L (12-78) L 12/07/19 04:39 Alkaline Phosphatase 86 U/L (45-117) 12/07/19 04:39 Troponin I 0.12 ng/mL (0.0-0.045) H 12/06/19 03:30 Amylase 19 U/L (25-115) L 12/05/19 11:14 Lipase 39 U/L (73-393) L 12/05/19 11:14 Home Medications: Atorvastatin Calcium [Lipitor] 40 mg PO BEDTIME 11/19/19 Bupropion HCl [Wellbutrin] 2 tab PO BID 11/19/19 Clopidogrel Bisulfate [Plavix*] 75 mg PO DAILY 11/19/19 Collagenase [Santyl Ointment*] 1 raquel TOP DAILY 11/19/19 Fluticasone [Flovent Hfa 110*] 2 puff PO BID 11/19/19 Gabapentin 300 mg PO TID 11/19/19 Insulin Detemir [Levemir Flextouch] 10 units SQ BID 11/19/19 Sertraline [Zoloft*] 25 mg PO DAILY 11/19/19 carvediloL [Coreg*] 12.5 mg PO BID 11/19/19 Ensure High Protein 237 ml PO BID 30 Days #60 can 12/02/19 Hydralazine [Apresoline*] 50 mg PO TID 30 Days #90 tab 12/02/19 Patrice [Patrice*] 1 pkt PO BID 30 Days #60 powd.pack 12/02/19 Levothyroxine [Synthroid*] 0.112 mg PO DAILYAC 30 Days #30 tab 12/02/19 Allopurinol 100 mg PO BID 12/06/19 Furosemide [Lasix*] 40 mg PO BID 12/06/19 Insulin Detemir [Levemir Flextouch] 12/06/19 Isosorbide Mononitrate [Isosorbide Mononitrate ER] 30 mg PO DAILY 12/06/19 NIFEdipine [Nifedipine ER] 60 mg PO DAILY 12/06/19 Patient Discharge Instructions: Please continue with additional care at [facility]. It was a pleasure to participate in her care. Diet: Renal Activity: Fall precautions Time spent managing pt's care (in minutes): 55
[2019-12-15 22:30] VITALS: TEMP 97.7
[2019-12-15 22:33] VITALS: BP 154/79
[2019-12-16] MEDS ORDERED: carvediloL 3.125 MG TAB PO SCH (09:00)
== END 2019-12-15 22:45 | disposition short-term general hospital (02) | DRG 802 ==
LOC: ER 10:55 → ERHOLD 16:39 → 2ND 17:36 → OBSVTOIN 12-08 09:36
PROVIDERS: ADMIT Hospitalist; ATTEND Hospitalist
PROC: 30233N1 Transfusion of Nonautologous Red Blood Cells into Peripheral Vein, Percutaneous Approach (ICD-10-PCS; 2019-12-05)
PROC: 0HQ1XZZ Repair Face Skin, External Approach (ICD-10-PCS; 2019-12-05)
PROC: 0JBN0ZZ Excision of Right Lower Leg Subcutaneous Tissue and Fascia, Open Approach (ICD-10-PCS; 2019-12-10)
PROC: 0JBG0ZZ Excision of Right Lower Arm Subcutaneous Tissue and Fascia, Open Approach (ICD-10-PCS; 2019-12-10)
PROC: 0JBH0ZZ Excision of Left Lower Arm Subcutaneous Tissue and Fascia, Open Approach (ICD-10-PCS; 2019-12-10)
PROC: 0JB60ZZ Excision of Chest Subcutaneous Tissue and Fascia, Open Approach (ICD-10-PCS; 2019-12-10)
PROC: 0JBR0ZZ Excision of Left Foot Subcutaneous Tissue and Fascia, Open Approach (ICD-10-PCS; 2019-12-10)
PROC: 0JBP0ZZ Excision of Left Lower Leg Subcutaneous Tissue and Fascia, Open Approach (ICD-10-PCS; principal; 2019-12-10 15:15)
PROC: 5A1D70Z Performance of Urinary Filtration, Intermittent, Less than 6 Hours Per Day (ICD-10-PCS; 2019-12-15)
PROC: 0JH63XZ Insertion of Tunneled Vascular Access Device into Chest Subcutaneous Tissue and Fascia, Percutaneous Approach (ICD-10-PCS; 2019-12-15)
DX: D62 Acute posthemorrhagic anemia (principal); N18.6 End stage renal disease; L97.909 Non-pressure chronic ulcer of unspecified part of unspecified lower leg with unspecified severity; I50.32 Chronic diastolic (congestive) heart failure; M86.8X6 Other osteomyelitis, lower leg; N17.9 Acute kidney failure, unspecified; I24.8 Other forms of acute ischemic heart disease; R44.3 Hallucinations, unspecified; L03.90 Cellulitis, unspecified; I13.2 Hypertensive heart and chronic kidney disease with heart failure and with stage 5 chronic kidney disease, or end stage renal disease; L97.829 Non-pressure chronic ulcer of other part of left lower leg with unspecified severity; E11.22 Type 2 diabetes mellitus with diabetic chronic kidney disease; E78.5 Hyperlipidemia, unspecified; I25.10 Atherosclerotic heart disease of native coronary artery without angina pectoris; Z95.1 Presence of aortocoronary bypass graft; J44.9 Chronic obstructive pulmonary disease, unspecified; S01.81XA Laceration without foreign body of other part of head, initial encounter; V00.811A Fall from moving wheelchair (powered), initial encounter; Z88.1 Allergy status to other antibiotic agents; Z88.5 Allergy status to narcotic agent; Z88.8 Allergy status to other drugs, medicaments and biological substances; Z79.82 Long term (current) use of aspirin; Z79.4 Long term (current) use of insulin; Z79.02 Long term (current) use of antithrombotics/antiplatelets; Z79.890 Hormone replacement therapy; Z79.899 Other long term (current) drug therapy; Z85.42 Personal history of malignant neoplasm of other parts of uterus; Z90.710 Acquired absence of both cervix and uterus; Z90.49 Acquired absence of other specified parts of digestive tract; Z89.412 Acquired absence of left great toe; F17.200 Nicotine dependence, unspecified, uncomplicated; S09.93XA Unspecified injury of face, initial encounter; R07.9 Chest pain, unspecified; R79.89 Other specified abnormal findings of blood chemistry; E11.69 Type 2 diabetes mellitus with other specified complication; E03.9 Hypothyroidism, unspecified; E11.40 Type 2 diabetes mellitus with diabetic neuropathy, unspecified; R80.9 Proteinuria, unspecified; D63.1 Anemia in chronic kidney disease; K74.60 Unspecified cirrhosis of liver; F07.81 Postconcussional syndrome; I87.2 Venous insufficiency (chronic) (peripheral); E11.51 Type 2 diabetes mellitus with diabetic peripheral angiopathy without gangrene; E11.621 Type 2 diabetes mellitus with foot ulcer; L97.519 Non-pressure chronic ulcer of other part of right foot with unspecified severity; E11.649 Type 2 diabetes mellitus with hypoglycemia without coma; Z53.8 Procedure and treatment not carried out for other reasons; Z20.828 Contact with and (suspected) exposure to other viral communicable diseases
CPT/HCPCS: 36415; 36430; 70450; 70486; 70551; 71045; 71250; 72125; 76000; 80048; 80053; 80069; 80076; 80162; 80320; 81001; 82150; 82274; 82728; 82947; 83540; 83690; 83735; 84100; 84132; 84439; 84443; 84466; 84484; 85014; 85018; 85025; 85027; 85610; 86704; 86706; 86803; 86850; 86870; 86900; 86901; 86902; 86922; 87340; 88304; 93005; 94760; 94762; 96361; 96374; 96375; 97110; 97161; 97530; 99251; 99285; C1752; G0378; G0390; J0360; J0713; J1100; J1170; J1610; J1644; J1815; J1940; J2250; J2405; J2704; J3010; J3475; J3590; J7030; J7040; J7050; P9016; P9047; Q5106; U0002

== ENCOUNTER 2020-01-04 05:05 | Observation (INO) | payer MEDICAID ==
[2020-01-04 05:44] LABS: Absolute Lymphocytes (CBC) 1.6 K/uL (0.7-4.9); Basophils % 2.1 % (0-1.3); Hematocrit 19.8 % (36.0-45.0); Lymphocytes % 28.9 % (15.3-44.8); MPV 8.6 fL (7.6-11.3); RBC Red Blood Cell Count 2.09 M/uL (3.86-4.86)
[2020-01-04 05:51] LABS: Protime INR 1.3
[2020-01-04 06:00] LABS: Albumin 1.9 g/dL (3.4-5.0); Bilirubin Direct 0.2 mg/dL (0-0.2); Bilirubin Total 0.4 mg/dL (0.2-1.0); Potassium 3.3 mmol/L (3.5-5.1); Protein, Total 6.5 g/dL (6.4-8.2)
[2020-01-04] MEDS ORDERED: NA CHLORIDE 0.9% 500 ML ONE (06:01)
[2020-01-04 06:57] LABS: Blood Morphology Comment NOT SEEN (NOT SEEN); Platelet Estimate ADEQ
[2020-01-04 07:32] LABS: Troponin (Emerg Dept Use Only) 0.13 ng/mL (0.0-0.045)
--- NOTE | 2020-01-04 07:49 | ER ---
Nurse's Notes [facility] Name: Christy Priest Age: 64 yrs Sex: Female : 1955 Arrival Date: 01/04/2020 Time: 05:06 Bed 30 Private MD: Diagnosis: Anemia, unspecified;End stage renal disease Presentation: 01/03 05:08 Chief complaint: EMS states: PT cut her leg on her chair and did not know it. Pt woke jb4 up to it bleeding while she was in bed. From the pictures we were shown it looked like about a pint of blood. Coronavirus screen: Client denies travel out of the [place] in the last 14 days. At this time, the client does not indicate any symptoms associated with coronavirus-19. Ebola Screen: No symptoms or risks identified at this time. Complicating Factors: There are no complicating factors for this patient. Initial Sepsis Screen: Does the patient meet any 2 criteria? Systolic BP < 90 mmHg. Yes Does the patient have a suspected source of infection? No. Patient's initial sepsis screen is negative. Risk Assessment: Do you want to hurt yourself or someone else? Patient reports no desire to harm self or others. Onset of symptoms was January 04, 2020. Transition of care: patient was not received from another setting of care. 05:08 Method Of Arrival: EMS: [facility] jb4 05:08 Acuity: DENNY 2 jb4 Historical: - Allergies: 05:06 Augmentin; jb4 05:06 basil; jb4 05:06 Clindamycin; jb4 05:06 HYDROCODONE; jb4 05:06 Morphine; jb4 05:06 Nitroglycerin; jb4 05:06 Tramadol HCl; jb4 05:06 Trazodone; jb4 05:06 Vancomycin; jb4 05:06 Vicodin; jb4 - Home Meds: 05:06 gabapentin Oral [Active]; insulin [Active]; Hydralazine Oral [Active]; Lasix Oral jb4 [Active]; Plavix Oral [Active]; - PMHx: 05:06 CHF; COPD; Diabetes - IDDM; ESRD; High Cholesterol; Hypertension; triple bypass; jb4 uterine cancer; - PSHx: 05:06 Heart stents; jb4 - Immunization history:: Adult Immunizations unknown, Last tetanus immunization: up to date. - Social history:: Smoking status: Patient denies any tobacco usage or history of. Patient/guardian denies using alcohol, street drugs. Screenin:06 Abuse screen: Denies threats or abuse. Nutritional screening: No deficits noted. jb4 Tuberculosis screening: No symptoms or risk factors identified. Fall Risk Fall in past 12 months (25 points). IV access (20 points). Total Merlos Fall Scale indicates High Risk Score (45 or more points). Fall prevention measures have been instituted. Side Rails Up X 2 Placed Close to Nursing Station Frequent Obs/Assessments Occuring As available patient and family educated on Fall Prevention Program and Strategies. Assessment: 05:06 General: Appears in no apparent distress. uncomfortable, Behavior is calm, cooperative, jb4 appropriate for age. Pain: Complains of pain in right leg Pain does not radiate. Pain currently is 8 out of 10 on a pain scale. Neuro: Level of Consciousness is awake, alert, obeys commands, Oriented to person, place, time, situation. Cardiovascular: Patient's skin is warm and dry. Respiratory: Airway is patent Respiratory effort is even, unlabored, Respiratory pattern is regular, symmetrical. GI: No signs and/or symptoms were reported involving the gastrointestinal system. : No signs and/or symptoms were reported regarding the genitourinary system. EENT: No signs and/or symptoms were reported regarding the EENT system. Derm: Skin is dry, Skin is pale, Skin temperature is warm Wound noted right spangler Other: x3 Decubitus located on right foot. Musculoskeletal: Circulation, motion, and sensation intact. Range of motion: intact in all extremities, Swelling present in right leg and left leg. Injury Description: Laceration sustained to right spangler is superficial, 0.5 to 2.5 cm long, not bleeding, was sustained unknown is bleeding moderately a dressing was applied. 05:36 Reassessment: Dressing reapplied to the right lower limb after examination of injury. jb4 05:50 Respiratory: Airway is patent Respiratory effort is even, unlabored, Respiratory jb4 pattern is regular, symmetrical, Breath sounds are clear bilaterally. 05:57 Reassessment: Patient appears in no apparent distress at this time. Patient and/or jb4 family updated on plan of care and expected duration. Pain level reassessed. Patient is alert, oriented x 3, equal unlabored respirations, skin warm/dry/pink. Pt given 4 warm blankets per request. 06:57 Reassessment: Patient and/or family updated on plan of care and expected duration. Pain jb4 level reassessed. Pt is resting in bed with eyes closed, respirations are even and unlabored. No s/s of pain or distress noted. 07:30 Reassessment: Patient appears in no apparent distress at this time. No changes from em previously documented assessment. Patient and/or family updated on plan of care and expected duration. Pain level reassessed. Patient is alert, oriented x 3, equal unlabored respirations, skin warm/dry/pink. 08:15 Reassessment: pending blood for blood transfusion. em 09:10 Reassessment: sent request blood slip to lab. em 09:20 Reassessment: checked off PRBC's with GUILHERME Cagle, initiated blood transfusion, em instructed pt to alert nurse if pt has shortness of breath, chest pain or any other symptoms out of the norm. 10:35 Reassessment: Patient appears in no apparent distress at this time. Patient and/or em family updated on plan of care and expected duration. Pain level reassessed. 11:55 Reassessment: Patient appears in no apparent distress at this time. Patient and/or em family updated on plan of care and expected duration. Pain level reassessed. 1st unit of PRBC's. 11:58 Reassessment: pt does not want to be transferred to another facility, reports she will em have dialysis the following day at 1500, provider notified. 13:00 Reassessment: Patient appears in no apparent distress at this time. Patient and/or em family updated on plan of care and expected duration. Pain level reassessed. Patient is alert, oriented x 3, equal unlabored respirations, skin warm/dry/pink. 14:00 Reassessment: Patient appears in no apparent distress at this time. Patient and/or em family updated on plan of care and expected duration. Pain level reassessed. Patient is alert, oriented x 3, equal unlabored respirations, skin warm/dry/pink. pending transfer. 15:40 Reassessment: Patient appears in no apparent distress at this time. Patient and/or em family updated on plan of care and expected duration. Pain level reassessed. Patient is alert, oriented x 3, equal unlabored respirations, skin warm/dry/pink. Dr. Muñiz at bedside. 16:07 Reassessment: pt refused transfer, states she will have no one to pick her up after em being discharged, states her daughter will not pick her up, provider notified. Vital Signs: 05:08 BP 87 / 51; Pulse 52; Resp 16; Temp 97.9(O); Pulse Ox 100% on R/A; Weight 74.84 kg (R); jb4 Height 5 ft. 7 in. (170.18 cm) (R); Pain 8/10; 05:45 BP 86 / 47; Pulse 54; Resp 16; Pulse Ox 98% on R/A; jb4 06:00 BP 99 / 55; Pulse 53; Resp 15; Pulse Ox 98% on R/A; jb4 06:45 BP 105 / 53; Pulse 54; Resp 10; Pulse Ox 100% on R/A; jb4 07:45 BP 102 / 57; Pulse 54; Resp 16; Pulse Ox 100% on R/A; em 09:00 BP 120 / 66; Pulse 57; Resp 16; Pulse Ox 100% on R/A; em 09:20 em 12:00 BP 133 / 62; Pulse 58; Resp 18; Pulse Ox 99% on R/A; em 12:45 BP 131 / 60; Pulse 60; Resp 18; Pulse Ox 99% on R/A; em 13:45 BP 145 / 72; Pulse 66; Resp 16; Pulse Ox 99% on R/A; em 14:30 BP 154 / 76; Pulse 67; Resp 18; Pulse Ox 98% on R/A; em 15:15 BP 157 / 82; Pulse 69; Resp 16; Pulse Ox 100% on R/A; em 17:00 BP 155 / 94; Pulse 73; Resp 18; Pulse Ox 100% on R/A; em 05:08 Body Mass Index 25.84 (74.84 kg, 170.18 cm) jb4 09:20 please see blood transfusion sheet for VS em ED Course: 05:06 Patient arrived in ED. cl3 05:06 Arm band placed on right wrist. jb4 05:07 Miguel Nicholas MD is Attending Physician. mh7 05:08 Binh Bingham, GUILHERME is Primary Nurse. jb4 05:10 Triage completed. jb4 05:15 Inserted saline lock: 18 gauge in right antecubital area, using aseptic technique. Blood collected. 05:21 Patient has correct armband on for positive identification. tt3 05:54 Notified ED physician of a critical lab result(s). HGB 6.4, HCT 19.8, Dr Yu sellers notified. 06:00 Tib Fib Right XRAY In Process Unspecified. EDMS 06:45 Chest Single View XRAY In Process Unspecified. EDMS 07:12 Attending Physician role handed off by Miguel Nicholas MD rn 07:12 Jurgen Nettles MD is Attending Physician. rn 07:47 Prince Belcher MD is Hospitalizing Provider. rn 08:00 Fer Muñiz is Hospitalizing Provider. rn 09:00 Consent for blood and/or blood product transfusion signed by patient. em 13:34 initiated transfer to [facility]. admin approval giving by Alyson, pending a bd bed. 17:03 No provider procedures requiring assistance completed. iw 17:17 IV discontinued, intact, bleeding controlled, No redness/swelling at site. Pressure em dressing applied. 17:21 notified [facility] that pt signed out AMA. bd Administered Medications: 05:55 Drug: NS 0.9% 500 ml Route: IV; Rate: bolus; Site: right antecubital; jb4 06:20 Follow up: Response: No adverse reaction; IV Status: Completed infusion jb4 12:35 Not Given (Patient Refused): Tylenol 325 mg PO once em Outcome: 07:49 Decision to Hospitalize by Provider. rn 12:25 ER care complete, transfer ordered by MD. rn 17:17 AMA AMA form signed em 17:17 Condition: improved 17:34 Patient left the ED. iw Signatures: Dispatcher [employer] EDMS Svetlana Iniguez Edgar, Jud Leyva RN, RN RN bb Williams, Irene, RN RN iw Jurgen Nettles MD MD rn Bryson, James, RN RN jb4 Nicholas Bowers Charde cl3 Miguel Nicholas MD MD 7 Carmelo Segal tt3 Corrections: (The following items were deleted from the chart) 06:15 06:00 BP 99 / 55; Pulse 15bpm; Resp 15bpm; Pulse Ox 98% RA; jb4 jb4 06:21 05:57 Reassessment: Patient appears in no apparent distress at this time. Patient jb4 and/or family updated on plan of care and expected duration. Pain level reassessed. Patient is alert, oriented x 3, equal unlabored respirations, skin warm/dry/pink. Pt given 4 warm blankets per request. jb4
--- NOTE | 2020-01-04 07:49 | EDPHYS ---
Physician Documentation [facility] Name: Christy Priest Age: 64 yrs Sex: Female : 1955 Arrival Date: 01/04/2020 Time: 05:06 Bed 30 Private MD: ED Physician Jurgen Nettles HPI: 01/03 05:42 This 64 yrs old Female presents to ER via EMS with complaints of Laceration mh7 To Leg. 05:42 The patient presents with an injury. The patient presents with Bleeding leg wound. The mh7 complaints affect the right spangler and right leg. Context: The problem was sustained at home, resulted from a direct blow, from a solid object, furniture, the patient can partially bear weight, chronic leg ulcers. Onset: The symptoms/episode began/occurred yesterday. Modifying factors: The symptoms are alleviated by nothing. the symptoms are aggravated by movement. Associated signs and symptoms: Pertinent negatives calf tenderness, fever, nausea, numbness, rash, swelling, tingling, vomiting, warmth, weakness. Treatment prior to arrival includes: no previous treatment. Severity of symptoms: At their worst the symptoms were moderate, earlier today, in the emergency department the symptoms are unchanged. Historical: - Allergies: 05:06 Augmentin; jb4 05:06 basil; jb4 05:06 Clindamycin; jb4 05:06 HYDROCODONE; jb4 05:06 Morphine; jb4 05:06 Nitroglycerin; jb4 05:06 Tramadol HCl; jb4 05:06 Trazodone; jb4 05:06 Vancomycin; jb4 05:06 Vicodin; jb4 - Home Meds: 05:06 gabapentin Oral [Active]; insulin [Active]; Hydralazine Oral [Active]; Lasix Oral jb4 [Active]; Plavix Oral [Active]; - PMHx: 05:06 CHF; COPD; Diabetes - IDDM; ESRD; High Cholesterol; Hypertension; triple bypass; jb4 uterine cancer; - PSHx: 05:06 Heart stents; jb4 - Immunization history:: Adult Immunizations unknown, Last tetanus immunization: up to date. - Social history:: Smoking status: Patient denies any tobacco usage or history of. Patient/guardian denies using alcohol, street drugs. ROS: 05:42 Constitutional: Negative for fever, chills, and weight loss, Eyes: Negative for injury, mh7 pain, redness, and discharge, ENT: Negative for injury, pain, and discharge, Neck: Negative for injury, pain, and swelling, Cardiovascular: Negative for chest pain, palpitations, and edema, Respiratory: Negative for shortness of breath, cough, wheezing, and pleuritic chest pain, Abdomen/GI: Negative for abdominal pain, nausea, vomiting, diarrhea, and constipation, Back: Negative for injury and pain, : Negative for injury, bleeding, discharge, and swelling, Neuro: Negative for headache, weakness, numbness, tingling, and seizure, Psych: Negative for depression, anxiety, suicide ideation, homicidal ideation, and hallucinations, Allergy/Immunology: Negative for hives, rash, and allergies, Endocrine: Negative for neck swelling, polydipsia, polyuria, polyphagia, and marked weight changes, Hematologic/Lymphatic: Negative for swollen nodes, abnormal bleeding, and unusual bruising. Exam: 05:42 Constitutional: This is a well developed, well nourished patient who is awake, alert, mh7 and in no acute distress. 05:42 Eyes: Pupils equal round and reactive to light, extra-ocular motions intact. Lids and lashes normal. Conjunctiva and sclera are non-icteric and not injected. Cornea within normal limits. Periorbital areas with no swelling, redness, or edema. Neck: Trachea midline, no thyromegaly or masses palpated, and no cervical lymphadenopathy. Supple, full range of motion without nuchal rigidity, or vertebral point tenderness. No Meningismus. Chest/axilla: Normal chest wall appearance and motion. Nontender with no deformity. No lesions are appreciated. Cardiovascular: Regular rate and rhythm with a normal S1 and S2. No gallops, murmurs, or rubs. Normal PMI, no JVD. No pulse deficits. Respiratory: Lungs have equal breath sounds bilaterally, clear to auscultation and percussion. No rales, rhonchi or wheezes noted. No increased work of breathing, no retractions or nasal flaring. Abdomen/GI: Soft, non-tender, with normal bowel sounds. No distension or tympany. No guarding or rebound. No evidence of tenderness throughout. Back: No spinal tenderness. No costovertebral tenderness. Full range of motion. 05:42 Neuro: Awake and alert, GCS 15, oriented to person, place, time, and situation. Cranial nerves II-XII grossly intact. Motor strength 5/5 in all extremities. Sensory grossly intact. Cerebellar exam normal. Normal gait. Psych: Awake, alert, with orientation to person, place and time. Behavior, mood, and affect are within normal limits. 05:42 Head/face: Noted is contusion, that is superficial, of the face, old facial contusions. 05:42 Musculoskeletal/extremity: Extremities: noted in the right spangler: bleeding chronic ulceration, ROM: intact in all extremities, Circulation is intact in all extremities. Pulses: are normal with no appreciated deficits, Sensation intact. Compartment Syndrome exam of affected extremity: is normal. no numbness, no tingling, no sensation deficit, no palor, no weak pulses, Joints: All joints appear normal with full range of motion. Tendon exam: specific tendon testing normal through active and passive range of motion 05:42 Skin: bleeding at site of chronic ulcer on right leg. Vital Signs: 05:08 BP 87 / 51; Pulse 52; Resp 16; Temp 97.9(O); Pulse Ox 100% on R/A; Weight 74.84 kg (R); jb4 Height 5 ft. 7 in. (170.18 cm) (R); Pain 8/10; 05:45 BP 86 / 47; Pulse 54; Resp 16; Pulse Ox 98% on R/A; jb4 06:00 BP 99 / 55; Pulse 53; Resp 15; Pulse Ox 98% on R/A; jb4 06:45 BP 105 / 53; Pulse 54; Resp 10; Pulse Ox 100% on R/A; jb4 07:45 BP 102 / 57; Pulse 54; Resp 16; Pulse Ox 100% on R/A; em 09:00 BP 120 / 66; Pulse 57; Resp 16; Pulse Ox 100% on R/A; em 09:20 em 12:00 BP 133 / 62; Pulse 58; Resp 18; Pulse Ox 99% on R/A; em 12:45 BP 131 / 60; Pulse 60; Resp 18; Pulse Ox 99% on R/A; em 13:45 BP 145 / 72; Pulse 66; Resp 16; Pulse Ox 99% on R/A; em 14:30 BP 154 / 76; Pulse 67; Resp 18; Pulse Ox 98% on R/A; em 15:15 BP 157 / 82; Pulse 69; Resp 16; Pulse Ox 100% on R/A; em 17:00 BP 155 / 94; Pulse 73; Resp 18; Pulse Ox 100% on R/A; em 05:08 Body Mass Index 25.84 (74.84 kg, 170.18 cm) jb4 09:20 please see blood transfusion sheet for VS em MDM: 05:22 Patient medically screened. [facility] 07:46 ED course: Signed out to me by Dr. Nicholas, reports surgicel placed on wound, hemostasis rn achieved, improving vitals, anemia, plan is to transfuse. Blood ordered, not given yet. Will admit for transfusion given initial hypotension, may need 2 units blood, is dialysis, and recent MS. . 08:00 Differential diagnosis: bleeding from chronic wound, anemia. Data reviewed: vital rn signs, nurses notes, lab test result(s), radiologic studies, and as a result, I will admit patient. Counseling: I had a detailed discussion with the patient and/or guardian regarding: the historical points, exam findings, and any diagnostic results supporting the discharge/admit diagnosis, lab results, radiology results, the need for further work-up and treatment in the hospital. Admission orders: after a detailed discussion of the patient's condition and case, the admit orders are written by me. 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 Blood transfusion completed, stable vitals. Dr. rizvi involved, plans to get patient transferred to [facility], has a physician over there for admission. He would like patient admitted overnight and possibly dialyzed tomorrow, not sure if dialysis will be available tomorrow here. . 17:20 ED course: Pt accepted for transfer, patient refuses transfer once again. Signs refusal rn of transport form. And demanding she goes home. Signed out AMA. Hemodynamically stable, got 1 unit of blood, she plans on regularly scheduled dialysis tomorrow. . 01/03 05:22 Order name: CBC with Diff; Complete Time: 07:12 7 01/03 05:22 Order name: Basic Metabolic Panel; Complete Time: 06:44 [facility] 01/03 05:22 Order name: Protime (+inr); Complete Time: 05:56 7 01/03 05:22 Order name: Ptt, Activated; Complete Time: 05:56 mh7 01/03 05:22 Order name: LFT's; Complete Time: 06:44 mh7 01/03 05:22 Order name: T\T\S 7 01/03 06:01 Order name: Packed RBC Leukored [facility] 01/03 06:56 Order name: Troponin (emerg Dept Use Only); Complete Time: 07:50 7 01/03 06:56 Order name: CPK; Complete Time: 07:50 7 01/03 06:56 Order name: PROBNP; Complete Time: 07:50 7 01/03 06:57 Order name: Manual Differential; Complete Time: 07:12 [facility] 01/03 05:22 Order name: Tib Fib Right XRAY; Complete Time: 08:30 7 01/03 05:23 Order name: EKG - Nurse/Tech; Complete Time: 05:48 7 01/03 05:56 Order name: Transfuse; Complete Time: 12:38 7 01/03 06:28 Order name: Chest Single View XRAY; Complete Time: 08:30 7 01/03 07:45 Order name: Antibody Identification [facility] 01/03 07:47 Order name: Antibody Screen [facility] 01/03 09:39 Order name: EKG Electrocardiogram [facility] 01/03 10:38 Order name: Diet Renal; Complete Time: 10:38 em 01/03 12:27 Order name: Direct Antiglobulin Test [facility] 01/03 13:01 Order name: COVID-19 bd 01/03 13:34 Order name: CORONAVIRUS [facility] 01/03 14:29 Order name: SARS-COV-2 RT PCR EDMS Administered Medications: 05:55 Drug: NS 0.9% 500 ml Route: IV; Rate: bolus; Site: right antecubital; jb4 06:20 Follow up: Response: No adverse reaction; IV Status: Completed infusion jb4 12:35 Not Given (Patient Refused): Tylenol 325 mg PO once em Disposition: 01/04/20 17:32 Patient has left against medical advice. Impression: Anemia, unspecified, End stage renal disease. - Patients states they are going to Home. - Condition is Stable. - Discharge Instructions: Anemia, Nonspecific, End-Stage Kidney Disease. Follow up: Private Physician; When: As needed; Reason: Recheck today's complaints, Re-evaluation by your physician. - Problem is new. - Symptoms have improved. Signatures: Dispatcher [employer] [facility] Svetlana Iniguez Tsering Oscar, RN Jurgen Quevedo MD MD rn Bryson, James, RN RN jb4 Mauro Ballesteros RN RN ja1 Holmes, Maurice, MD MD 7 Arvin Saleem RN em Corrections: (The following items were deleted from the chart) 06:01 05:57 PACKED RBC LEUKORED -1+BB.LAB.BRZ ordered. [facility] 06:01 05:57 ABO/RH typing ordered. [facility] 06:01 05:57 Antibody Screen ordered. [facility] 08:00 07:49 Hospitalization Ordered by Prince Simi PIERRE for Observation. Preliminary rn diagnosis is Anemia, unspecified; Lower extremity bleeding, traumatic. Bed requested for Telemetry/MedSurg (observation). Status is Observation. Condition is Stable. Problem is new. Symptoms have improved. rn 10:39 08:00 01/04/2020 07:49 Hospitalization Ordered by Fer Muñiz for Observation. bd Preliminary diagnosis is Anemia, unspecified; Lower extremity bleeding, traumatic. Bed requested for Telemetry/MedSurg (observation). Status is Observation. Condition is Stable. Problem is new. Symptoms have improved. rn 12:09 10:39 01/04/2020 07:49 Hospitalization Ordered by Fre Muñiz for Observation. ja1 Preliminary diagnosis is Anemia, unspecified; Lower extremity bleeding, traumatic. Bed requested for Telemetry/MedSurg (observation). Status is Observation. Condition is Stable. Problem is new. Symptoms have improved. bd 12:23 12:09 01/04/2020 07:49 Hospitalization Ordered by Fer Muñiz for Observation. rn Preliminary diagnosis is Anemia, unspecified; Lower extremity bleeding, traumatic. Bed requested for Telemetry/MedSurg (observation). Status is Observation. Condition is Stable. Problem is new. Symptoms have improved. ja1 17:21 12:25 01/04/2020 12:25 Transfer ordered to [facility]. 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 Reason for transfer: Higher level of care. Accepting physician is Dr. Mohamud. Condition is Stable. Problem is new. Symptoms have improved. rn 17:34 17:32 01/04/2020 17:32 Patients has left against medical advice. Impression: Anemia, iw unspecified; End stage renal disease. Patient states they are going to Home. Condition is Stable. Follow up: Private Physician; When: As needed; Reason: Recheck today's complaints, Re-evaluation by your physician. Problem is new. Symptoms have improved. rn
--- NOTE | 2020-01-04 08:06 | RAD REPORT ---
EXAM DESCRIPTION: Butch Single View01/04/2020 6:45 am CLINICAL HISTORY: Chest pain COMPARISON: November 2019 FINDINGS: Small to moderate right pleural effusion is suspected. Mild bilateral interstitial lung opacities likely interstitial pulmonary edema Heart remains enlarged. Postsurgical changes involve the chest Central venous catheter present
--- NOTE | 2020-01-04 08:06 | RAD REPORT ---
EXAM DESCRIPTION: RAD - Tib Fib Right - 01/04/2020 6:00 am CLINICAL HISTORY: Right leg pain FINDINGS: No fracture is seen. Soft tissue swelling Osteoporosis
[2020-01-04] MEDS ORDERED: NA CHLORIDE 0.9% 100 ML IV ONE (08:33)
[2020-01-04 17:44] VITALS: TEMP 97.9
[2020-01-04 18:12] VITALS: O2SAT 100
[2020-01-04 18:13] VITALS: BP 155/94
--- NOTE | 2020-01-04 18:30 | P.HP ---
Certification for Inpatient Patient admitted to: Observation With expected LOS: <2 Midnights Practitioner: I am a practitioner with admitting privileges, knowledge of patient current condition, hospital course, and medical plan of care. Services: Services provided to patient in accordance with Admission requirements found in Title 42 Section 412.3 of the Code of Federal Regulations Patient History Date of Service: 01/04/20 Reason for admission: Anemia History of Present Illness: 64-year-old woman with a history chronic diastolic heart failure, chronic kidney disease, recently started on hemodialysis, debility presented to the emergency department with a complaint of bleeding from an old wound on her left lower extremity. Patient reports hitting her leg on an object and reported a lot of bleeding from the leg. Her hemoglobin in the ED was 6.4. PRBC transfusions started and patient recommended for hospitalization. Allergies morphine Allergy (Severe, Verified 11/19/19 05:42) Anaphylaxis vancomycin Allergy (Intermediate, Verified 11/23/19 08:17) Shortness of breath basil Allergy (Verified 11/19/19 05:42) Nausea/Vomiting tramadol Allergy (Verified 11/19/19 05:42) Nausea/Vomiting trazodone Allergy (Verified 11/19/19 05:42) Nausea/Vomiting nitroglycerin Adverse Reaction (Mild, Verified 11/19/19 05:42) Nausea/Vomiting Home Medications: Atorvastatin Calcium [Lipitor] 40 mg PO BEDTIME 11/19/19 Bupropion HCl [Wellbutrin] 2 tab PO BID 11/19/19 Clopidogrel Bisulfate [Plavix*] 75 mg PO DAILY 11/19/19 Collagenase [Santyl Ointment*] 1 raquel TOP DAILY 11/19/19 Fluticasone [Flovent Hfa 110*] 2 puff PO BID 11/19/19 Gabapentin 300 mg PO TID 11/19/19 Insulin Detemir [Levemir Flextouch] 10 units SQ BID 11/19/19 Sertraline [Zoloft*] 25 mg PO DAILY 11/19/19 carvediloL [Coreg*] 12.5 mg PO BID 11/19/19 Ensure High Protein 237 ml PO BID 30 Days #60 can 12/02/19 Hydralazine [Apresoline*] 50 mg PO TID 30 Days #90 tab 12/02/19 Patrice [Patrice*] 1 pkt PO BID 30 Days #60 powd.pack 12/02/19 Levothyroxine [Synthroid*] 0.112 mg PO DAILYAC 30 Days #30 tab 12/02/19 Allopurinol 100 mg PO BID 12/06/19 Furosemide [Lasix*] 40 mg PO BID 12/06/19 Insulin Detemir [Levemir Flextouch] 12/06/19 Isosorbide Mononitrate [Isosorbide Mononitrate ER] 30 mg PO DAILY 12/06/19 NIFEdipine [Nifedipine ER] 60 mg PO DAILY 12/06/19 - Past Medical/Surgical History Diabetic: Yes -: COPD -: Hypertension -: CAD, CABG x4 vessels (August 2017) -: Diabetes mellitus type 2, insulin-dependent -: Chronic diastolic CHF -: Uterine cancer status post hysterectomy -: Chronic renal disease, stage IV -: 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 Her son lives with her. She has 3 children. - Family History Brother -: Heart disease, Hypertension, Diabetes Notes: Father -: Heart disease, Cancer Notes: - Prostate surgery - Hemorrhage Mother -: GI disease Notes: Sister -: Heart disease Notes: - Respiratory failure - Social History Alcohol use: No CD- Drugs: No Caffeine use: Yes Review of Systems Other: Except as documented, all other systems reviewed and negative. Physical Examination - Vital Signs Temperature: 97.9 F Blood Pressure: 155/94 Pulse: 73 Respirations: 18 - Physical Exam General: Alert, In no apparent distress HEENT: Mucous membr. moist/pink, Other (Small sore on the lower lip) Neck: Supple, JVD not distended Respiratory: Diminished (Bilateral.), Crackles/rales (Mild bibasilar crackles.) Cardiovascular: Regular rate/rhythm, Normal S1 S2, Edema (2+ bilateral lower extremity pitting edema) Gastrointestinal: Normal bowel sounds, Soft and benign, No tenderness, Ascites Integumentary: Skin breakdown (Bilateral lower extremities, more on the left) Neurological: Normal speech, Normal strength at 5/5 x4 extr - Studies Laboratory Data (last 24 hrs) 01/04/20 05:15: PT 15.3 H, INR 1.30, APTT 35.0 01/04/20 05:15: Sodium 139, Potassium 3.3 L, BUN 16, Creatinine 2.39 H, Glucose 104, Total Bilirubin 0.4, AST 20, ALT 10 L, Alkaline Phosphatase 95 01/04/20 05:15: WBC 5.6, Hgb 6.4 L*, Hct 19.8 L*, Plt Count 110 L Assessment and Plan - Problems (Diagnosis) (1) Acute blood loss anemia Current Visit: Yes Status: Acute (2) Chronic diastolic heart failure Current Visit: Yes Status: Acute (3) Diabetes mellitus Onset Date: 10/03/17 Current Visit: No Status: Chronic Qualifiers: (4) Chronic venous hypertension (idiopathic) with ulcer and inflammation of bilateral lower extremity Current Visit: No Status: Resolved (5) Dependence on renal dialysis Current Visit: Yes Status: Acute (6) Chronic kidney disease, stage 4 (severe) Current Visit: Yes Status: Acute - Plan Admit to the medical floor. Patient getting 1 unit PRBC transfusion. Recheck hemoglobin after transfusion and transfuse p.r.n. to keep hemoglobin greater than 8. Nephrology evaluated patient and recommended transfer out to [facility] given the contaminated water issue. Transfer initiated. - Advance Directives Does patient have a Living Will: Yes Does patient have a Durable POA for Healthcare: Yes
--- NOTE | 2020-01-04 19:28 | P.DS ---
Admission Date: 01/04/20 Discharge Date: 01/04/20 Reason for Admission: Anemia - Problems (1) Acute blood loss anemia Current Visit: Yes Status: Acute (2) Chronic diastolic heart failure Current Visit: Yes Status: Acute (3) Diabetes mellitus Onset Date: 10/03/17 Current Visit: No Status: Chronic Qualifiers: (4) Chronic venous hypertension (idiopathic) with ulcer and inflammation of bilateral lower extremity Current Visit: No Status: Resolved (5) Dependence on renal dialysis Current Visit: Yes Status: Acute (6) Chronic kidney disease, stage 4 (severe) Current Visit: Yes Status: Acute Brief History of Present Illness: 64-year-old woman with a history chronic diastolic heart failure, chronic kidney disease, recently started on hemodialysis, debility presented to the emergency department with a complaint of bleeding from an old wound on her left lower extremity. Patient reports hitting her leg on an object and reported a lot of bleeding from the leg. Her hemoglobin in the ED was 6.4. PRBC transfusions started and patient recommended for hospitalization. Hospital Course: Nephrology recommended patient be transferred to [facility] due to concern for the contaminated water here. Patient received 1 unit PRBC transfusion. Per ED chart review, patient was accepted for transfer but she sign out against medical advice. Vital Signs/Physical Exam: Temp Pulse Resp BP Pulse Ox 97.9 F 73 18 155/94 H 01/04/20 18:34 01/04/20 18:34 01/04/20 18:34 01/04/20 18:34 Laboratory Data at Discharge: WBC 5.6 K/uL (4.3-10.9) 01/04/20 05:15 Hgb 6.4 g/dL (12.0-15.0) L* 01/04/20 05:15 Hct 19.8 % (36.0-45.0) L* 01/04/20 05:15 Plt Count 110 K/uL (152-406) L 01/04/20 05:15 PT 15.3 SECONDS (9.5-12.5) H 01/04/20 05:15 INR 1.30 01/04/20 05:15 APTT 35.0 SECONDS (24.3-36.9) 01/04/20 05:15 Sodium 139 mmol/L (136-145) 01/04/20 05:15 Potassium 3.3 mmol/L (3.5-5.1) L 01/04/20 05:15 BUN 16 mg/dL (7-18) 01/04/20 05:15 Creatinine 2.39 mg/dL (0.55-1.3) H 01/04/20 05:15 Glucose 104 mg/dL (74-106) 01/04/20 05:15 Total Bilirubin 0.4 mg/dL (0.2-1.0) 01/04/20 05:15 AST 20 U/L (15-37) 01/04/20 05:15 ALT 10 U/L (12-78) L 01/04/20 05:15 Alkaline Phosphatase 95 U/L (45-117) 01/04/20 05:15 Home Medications: Atorvastatin Calcium [Lipitor] 40 mg PO BEDTIME 11/19/19 Bupropion HCl [Wellbutrin] 2 tab PO BID 11/19/19 Clopidogrel Bisulfate [Plavix*] 75 mg PO DAILY 11/19/19 Collagenase [Santyl Ointment*] 1 raquel TOP DAILY 11/19/19 Fluticasone [Flovent Hfa 110*] 2 puff PO BID 11/19/19 Gabapentin 300 mg PO TID 11/19/19 Insulin Detemir [Levemir Flextouch] 10 units SQ BID 11/19/19 Sertraline [Zoloft*] 25 mg PO DAILY 11/19/19 carvediloL [Coreg*] 12.5 mg PO BID 11/19/19 Ensure High Protein 237 ml PO BID 30 Days #60 can 12/02/19 Hydralazine [Apresoline*] 50 mg PO TID 30 Days #90 tab 12/02/19 Patrice [Patrice*] 1 pkt PO BID 30 Days #60 powd.pack 12/02/19 Levothyroxine [Synthroid*] 0.112 mg PO DAILYAC 30 Days #30 tab 12/02/19 Allopurinol 100 mg PO BID 12/06/19 Furosemide [Lasix*] 40 mg PO BID 12/06/19 Insulin Detemir [Levemir Flextouch] 12/06/19 Isosorbide Mononitrate [Isosorbide Mononitrate ER] 30 mg PO DAILY 12/06/19 NIFEdipine [Nifedipine ER] 60 mg PO DAILY 12/06/19
--- NOTE | 2020-01-05 05:58 | EKG ---
Test Date: 2020-01-04 Test Time: 05:48:09 Open Source Developer: TIFFANY MEASUREMENT RESULTS: Intervals: Rate: 54 WI: 232 QRSD: 124 QT: 506 QTc: 479 [place]: P: 58 WI: 232 QRS: 87 T: 175 INTERPRETIVE STATEMENTS: Sinus bradycardia with 1st degree AV block Anterior infarct, age undetermined ST & T wave abnormality, consider inferior ischemia Abnormal ECG Compared to ECG 12/05/2019 12:21:21 First degree AV block now present Right-axis deviation no longer present Myocardial infarct finding still present ST (T wave) deviation still present Possible ischemia still present Electronically Signed On 01-05-20 05:55:57 CDT by Taj Raymond
--- OUTSIDE RECORDS SUMMARY | 2020-01-06 10:07 | XMS REPORT | Clinical Summary ---
:1955 Author Organization [facility] Address [address] [place] [address] Care Team Providers Name Role Phone Landy Rendon Primary Care Provider Chris Core Filer Unavailable Allergies Active Allergy Reactions Severity Noted Date Comments Amoxicillin-Pot Clavulanate Diarrhea High 04/21/2017 Basil Nausea Only High 04/21/2017 Morphine Anaphylaxis High 04/21/2017 Nitroglycerin Nausea And Vomiting High 04/21/2017 IV NITR O ONLY Trazodone Nausea And Vomiting High 05/12/2017 Vancomycin Analogues Nausea And Vomiting High 04/21/2017 Medications Medication Sig Dispensed Refills Start End Date Status Date fluticasone Inhale 1 puff by 1 Inhaler 0 A ctive (FLOVENT HFA) 110 mouth via inhaler 8 mcg/actuation 2 (two) times inhaler daily. carvedilol Take 1 tablet 60 tablet 0 Activ e (COREG) 12.5 MG (12.5 mg total) by 8 tablet mouth 2 (two) times daily. atorvastatin Take 1 tablet (40 30 tablet 0 Active (LIPITOR) 40 MG mg total) by mouth 8 tablet daily. gabapentin Take 100 mg in AM 100 capsule 0 Active (NEURONTIN) 100 and afternoon and 8 MG capsule 300 mg at night. acetaminophen-cod Take 1 tablet by 20 tablet 0 Active eine (TYLENOL #3) mouth every 6 8 300-30 mg per (six) hours as tablet needed. Max Daily Amount: 4 tablets mupirocin Apply topically 0 Acti ve (BACTROBAN) 2 % daily. ointment collagenase Apply topically 0 Ac tive (SANTYL) 250 daily. units/g ointment fentaNYL Place 1 patch onto 0 A ctive (DURAGESIC) 50 the skin every 0 mcg/hr patch third day. bumetanide Take 2 mg by mouth 0 Active (BUMEX) 2 MG 3 (three) times tablet daily. insulin regular Inject 0 Acti ve (HUMULIN subcutaneously 4 R,NOVOLIN R) 100 (four) times daily unit/mL injection before meals and nightly Use as directed . metOLazone Take 5 mg by mouth 0 Active (ZAROXOLYN) 5 MG 2 (two) times tablet daily. allopurinoL Take 100 mg by 0 Act moo (ZYLOPRIM) 100 MG mouth 2 (two) tablet times daily. levothyroxine Take 112 mcg by 0 Active (SYNTHROID, mouth Every LEVOTHROID) 112 morning on an MCG tablet empty stomach. folic acid Take 1 mg by mouth 0 Active (FOLVITE) 1 MG daily. tablet isosorbide Take 60 mg by 0 Activ e mononitrate mouth daily. (IMDUR) 60 MG 24 hr tablet buPROPion Take 150 mg by 0 Activ e (WELLBUTRIN SR) mouth daily. 150 MG 12 hr tablet sertraline Take 25 mg by 0 Activ e (ZOLOFT) 25 MG mouth daily. tablet ferrous sulfate Take 325 mg by 0 Active 325 (65 FE) MG mouth daily with tablet breakfast. levoFLOXacin Take 1 tablet (250 10 tablet 0 01/10/20 Active (LEVAQUIN) 250 MG mg total) by mouth 0 20 tablet daily for 10 days. aspirin 81 MG EC Take 81 mg by 0 12/16/19 Discontinued tablet mouth daily. 20 albuterol-ipratro Inhale 2 puffs by 4 g 0 11/29 Discontinued pium (COMBIVENT mouth via inhaler 8 20 RESPIMAT) 20-100 every 6 (six) mcg/actuation hours. Mist inhaler insulin detemir Inject 0.05 mLs (5 1 packet 0 12/15 Discontinued (LEVEMIR FLEXPEN) Units total) 8 20 100 unit/mL (3 subcutaneously mL) InPn every morning. injection pen needle, Use as directed to 100 each 0 12/16/19 Discontinued diabetic 29 gauge inject long and 8 20 Ndle short acting insulin.. NIFEdipine Take 1 tablet (60 30 tablet 0 12/16/19 D iscontinued (ADALAT CC) 60 MG mg total) by mouth 8 20 24 hr tablet daily Blood pressure. hydrALAZINE Take 1 tablet (50 120 tablet 0 12/16/19 Discontinued (APRESOLINE) 50 mg total) by mouth 8 20 MG tablet every 8 (eight) hours Blood pressure. clopidogrel Take 1 tablet (75 30 tablet 0 12/16/19 Discontinued (PLAVIX) 75 mg mg total) by mouth [address] onto the 0 12/16/19 Disco ntinued (NICODERM CQ TD) skin. 20 ferrous sulfate Take 1 tablet (325 60 tablet 0 12/15 Discontinued 325 (65 FE) MG mg total) by mouth 8 20 tablet 2 (two) times daily. melatonin 10 mg Take 10 mg by 0 12/16/19 Discontinued Tab mouth every night 20 as needed. isosorbide Take 30 mg by 0 12/16/19 Disco ntinued mononitrate mouth daily. 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, with 05/14/2017 long-term current use of insulin Smoker 05/14/2017 Frequent PVCs 05/12/2017 Encounters Date Type Specialty Care Team Description 12/30/2019 Anesthesia Event Jamin Kearns MD 12/30/2019 Surgery Tala Santacruz I&D,BONE F OOT Thy, DPM 12/28/2019 Surgery Sakina Tamayo ABD AO & LO WER EXT MD Ronaldo ANGIOS/ POSS PP I 12/17/2019 Travel 12/16/2019 - Hospital Encounter General Internal Pat Mohamud PVD ( peripheral 01/01/2020 Medicine MD Lisa vascular diseas e) with hadley on ([facility]) (Primary Dx) 12/16/2019 Orders Only Shiva Anderson, RN after 01/04/2019 Family History Medical History Relation Name Comments [...] Vital Sign Reading Time Taken Blood Pressure 162/73 01/01/2020 8:32 AM CDT Pulse 60 01/01/2020 8:41 AM CDT Temperature 36.6 C (97.8 F) 01/01/2020 7:41 AM CDT Respiratory Rate 18 01/01/2020 8:41 AM CDT Oxygen Saturation 100% 01/01/2020 8:41 AM CDT Inhaled Oxygen Concentration 21% 01/01/2020 8:41 AM CDT Weight 78.2 kg (172 lb 6.4 oz) 12/30/2019 4:28 AM CDT Height 170.2 cm (5' 7") 12/25/2019 9:05 PM CDT Body Mass Index 27 12/30/2019 4:28 AM CDT Plan of Treatment Health Maintenance Due Date Last Done Comments BREAST CANCER SCREENING 1955 DIABETIC EYE EXAM 1965 URINE MICROALBUMIN 1965 CERVICAL CANCER SCREENING PAP ONLY 1976 (Age 21-65) LIPID PANEL 2000 HEMOGLOBIN A1C 08/16/2017 05/19/2017, 04/22/2017 INFLUENZA VACCINE (#1) 2019 05/26/2018, 02/04/2017, 01/11/2014, Additional history exists COLON CANCER SCREENING ANNUAL FOBT 12/19/2020 12/20/2019 DIABETIC FOOT EXAM 12/21/2020 12/22/2019 PNEUMOCOCCAL VACCINE 2-64 YEARS AT Completed 01/11/2014 RISK Implants Implanted Type Area Professor Of Theater Device Shelf Model / Identifier Expiration Serial / Date Lot Device Clsr Angio-Seal Vip 8fr [id number] - [id number] Cardiovascular N/A: [facility] [employer] 01/28/2018 [id number] / Implanted: Qty: 1 on 05/12/2017 by Marquez Powers, Sandra Carter MD Groin MED:CARDIAC / SURG [id number] Grft Eptfe-Heparin Rng [id number] - [id number] Graft/P atch Right: WL GORE & 04/09/2021 [id number] / Implanted: Qty: 1 on 08/05/2017 by Mariela Ramirez MD Leg ASSC:MED PRDT [id number] / N/A Procedures Procedure Name Priority Date/Time Associated Comments Diagnosis REPORT OF PROCEDURE - 01/05/2020 8:40 ENDOSCOPY SCAN AM CDT RHYTHM STRIP - SCAN 01/05/2020 8:31 AM CDT RHYTHM STRIP - SCAN 01/05/2020 8:31 AM CDT RHYTHM STRIP - SCAN 01/05/2020 8:31 AM CDT CARDIAC CATH REPORT - 01/05/2020 8:31 SCAN AM CDT CARDIAC CATH REPORT - 01/05/2020 8:31 SCAN AM CDT POCT-GLUCOSE METER Routine 01/01/2020 6:33 Resul ts for this AM CDT procedure are i n the results section. CBC W/PLT COUNT & Routine 01/01/2020 5:37 Result s for this AUTO DIFFERENTIAL AM CDT procedure are in the results section. COMPREHENSIVE Routine 01/01/2020 5:37 Results fo r this METABOLIC PANEL AM CDT procedure ar e in the results section. CBC W/PLT COUNT & Routine 01/01/2020 5:37 Result s for this AUTO DIFFERENTIAL AM CDT procedure are in the results section. POCT-GLUCOSE METER Routine 12/31/2019 8:50 Resul ts for this PM CDT procedure are i n the results section. POCT-GLUCOSE METER Routine 12/31/2019 6:00 Resul ts for this PM CDT procedure are i n the results section. POCT-GLUCOSE METER Routine 12/31/2019 11:42 Resul ts for this AM CDT procedure are i n the results section. POCT-GLUCOSE METER Routine 12/31/2019 6:29 Resul ts for this AM CDT procedure are i n the results section. CBC W/PLT COUNT & Routine 12/31/2019 6:05 Result s for this AUTO DIFFERENTIAL AM CDT procedure are in the results section. MAGNESIUM Routine 12/31/2019 6:05 Results for this AM CDT procedure are i n the results section. COMPREHENSIVE Routine 12/31/2019 6:05 Results fo r this METABOLIC PANEL AM CDT procedure ar e in the results section. CBC W/PLT COUNT & Routine 12/31/2019 6:05 Result s for this AUTO DIFFERENTIAL AM CDT procedure are in the results section. POCT-GLUCOSE METER Routine 12/30/2019 8:13 Resul ts for this PM CDT procedure are i n the results section. POCT-GLUCOSE METER Routine 12/30/2019 4:26 Resul ts for this PM CDT procedure are i n the results section. ANAEROBIC CULTURE Routine 12/30/2019 1:59 Result s for this PM CDT procedure are i n the results section. SURGICALLY OBTAINED Routine 12/30/2019 1:59 Resu lts for this CULTURE + GRAM STAIN PM CDT procedu re are in the results section. ANAEROBIC CULTURE Routine 12/30/2019 1:54 Result s for this PM CDT procedure are i n the results section. SURGICALLY OBTAINED Routine 12/30/2019 1:54 Resu lts for this CULTURE + GRAM STAIN PM CDT procedu re are in the results section. TISSUE EXAM AP Routine 12/30/2019 1:38 Results for this PM CDT procedure are i n the results section. I&D,BONE FOOT 12/30/2019 12:30 Ulcer of left foot, PM CDT unspecified ulcer stage (HCC) Osteomyelitis of metatarsal (HCC) Ulcer of right foot, unspecified ulcer stage (HCC) POCT-GLUCOSE METER Routine 12/30/2019 11:39 Resul ts for this AM CDT procedure are i n the results section. POCT-GLUCOSE METER Routine 12/30/2019 5:39 Resul ts for this AM CDT procedure are i n the results section. SARS-COV2/RT-PCR Routine 12/30/2019 5:11 Results for this ([facility]) AM CDT procedure are in the results section. CBC W/PLT COUNT & Routine 12/30/2019 5:09 Result s for this AUTO DIFFERENTIAL AM CDT procedure are in the results section. COMPREHENSIVE Routine 12/30/2019 5:09 Results fo r this METABOLIC PANEL AM CDT procedure ar e in the results section. CBC W/PLT COUNT & Routine 12/30/2019 5:09 Result s for this AUTO DIFFERENTIAL AM CDT procedure are in the results section. POCT-GLUCOSE METER Routine 12/29/2019 9:09 Resul ts for this PM CDT procedure are i n the results section. POCT-GLUCOSE METER Routine 12/29/2019 11:10 Resul ts for this AM CDT procedure are i n the results section. HEMODIALYSIS Routine 12/29/2019 8:12 INPATIENT AM CDT POCT-GLUCOSE METER Routine 12/29/2019 6:10 Resul ts for this AM CDT procedure are i n the results section. CBC W/PLT COUNT & Routine 12/29/2019 5:50 Result s for this AUTO DIFFERENTIAL AM CDT procedure are in the results section. COMPREHENSIVE Routine 12/29/2019 5:50 Results fo r this METABOLIC PANEL AM CDT procedure ar e in the results section. CBC W/PLT COUNT & Routine 12/29/2019 5:50 Result s for this AUTO DIFFERENTIAL AM CDT procedure are in the results section. POCT-GLUCOSE METER Routine 12/28/2019 8:37 Resul ts for this PM CDT procedure are i n the results section. POCT-GLUCOSE METER Routine 12/28/2019 5:38 Resul ts for this PM CDT procedure are i n the results section. POCT-GLUCOSE METER Routine 12/28/2019 1:12 Resul ts for this PM CDT procedure are i n the results section. ABD AO & LOWER EXT 12/28/2019 12:00 Nonhealing ANGIOS/ POSS PPI PM CDT nonsurgical wound POCT-GLUCOSE METER Routine 12/28/2019 5:43 Resul ts for this AM CDT procedure are i n the results section. CBC W/PLT COUNT & Routine 12/28/2019 4:41 Result s for this AUTO DIFFERENTIAL AM CDT procedure are in the results section. COMPREHENSIVE Routine 12/28/2019 4:41 Results fo r this METABOLIC PANEL AM CDT procedure ar e in the results section. CBC W/PLT COUNT & Routine 12/28/2019 4:41 Result s for this AUTO DIFFERENTIAL AM CDT procedure are in the results section. POCT-GLUCOSE METER Routine 12/27/2019 8:32 Resul ts for this PM CDT procedure are i n the results section. MR LOWER EXTREMITY STAT 12/27/2019 4:30 Resul ts for this WITHOUT IV CONTRAST PM CDT procedur e are in LEFT the results section. POCT-GLUCOSE METER Routine 12/27/2019 2:06 Resul ts for this PM CDT procedure are i n the results section. WOUND CULTURE + GRAM Routine 12/27/2019 12:02 Res ults for this STAIN PM CDT procedure are i n the results section. POCT-GLUCOSE METER Routine 12/27/2019 6:44 Resul ts for this AM CDT procedure are i n the results section. POCT-GLUCOSE METER Routine 12/27/2019 5:49 Resul ts for this AM CDT procedure are i n the results section. CBC W/PLT COUNT & Routine 12/27/2019 5:05 Result s for this AUTO DIFFERENTIAL AM CDT procedure are in the results section. COMPREHENSIVE Routine 12/27/2019 5:05 Results fo r this METABOLIC PANEL AM CDT procedure ar e in the results section. CBC W/PLT COUNT & Routine 12/27/2019 5:05 Result s for this AUTO DIFFERENTIAL AM CDT procedure are in the results section. HEMODIALYSIS Routine 12/27/2019 12:31 INPATIENT AM CDT POCT-GLUCOSE METER Routine 12/26/2019 8:51 Resul ts for this PM CDT procedure are i n the results section. TRANSFUSION SERVICE 12/26/2019 6:02 REPORT - SCAN PM CDT POCT-GLUCOSE METER Routine 12/26/2019 4:42 Resul ts for this PM CDT procedure are i n the results section. CT/CTA AAA AND RUNOFF Routine 12/26/2019 3:27 Re sults for this PM CDT procedure are i n the results section. POCT-GLUCOSE METER Routine 12/26/2019 11:59 Resul ts for this AM CDT procedure are i n the results section. POCT-GLUCOSE METER Routine 12/26/2019 6:09 Resul ts for this AM CDT procedure are i n the results section. CBC W/PLT COUNT & Routine 12/26/2019 4:36 Result s for this AUTO DIFFERENTIAL AM CDT procedure are in the results section. COMPREHENSIVE Routine 12/26/2019 4:36 Results fo r this METABOLIC PANEL AM CDT procedure ar e in the results section. CBC W/PLT COUNT & Routine 12/26/2019 4:36 Result s for this AUTO DIFFERENTIAL AM CDT procedure are in the results section. PREPARE LEUKO-REDUCED Routine 12/25/2019 11:54 Re sults for this RBC PM CDT procedure are i n the results section. POCT-GLUCOSE METER Routine 12/25/2019 8:51 Resul ts for this PM CDT procedure are i n the results section. TRANSFUSION SERVICE 12/25/2019 6:04 REPORT - SCAN PM CDT POCT-GLUCOSE METER Routine 12/25/2019 5:01 Resul ts for this PM CDT procedure are i n the results section. POCT-GLUCOSE METER Routine 12/25/2019 11:25 Resul ts for this AM CDT procedure are i n the results section. CBC W/PLT COUNT & Routine 12/25/2019 5:59 Result s for this AUTO DIFFERENTIAL AM CDT procedure are in the results section. COMPREHENSIVE Routine 12/25/2019 5:59 Results fo r this METABOLIC PANEL AM CDT procedure ar e in the results section. CBC W/PLT COUNT & Routine 12/25/2019 5:59 Result s for this AUTO DIFFERENTIAL AM CDT procedure are in the results section. POCT-GLUCOSE METER Routine 12/25/2019 5:58 Resul ts for this AM CDT procedure are i n the results section. TRANSFUSE Routine 12/24/2019 7:06 LEUKO-REDUCED RED PM CDT BLOOD CELLS POCT-GLUCOSE METER Routine 12/24/2019 4:15 Resul ts for this PM CDT procedure are i n the results section. ABORH, MANUAL Routine 12/24/2019 8:25 Results fo r this AM CDT procedure are i n the results section. POCT-GLUCOSE METER Routine 12/24/2019 6:11 Resul ts for this AM CDT procedure are i n the results section. TYPE AND SCREEN, Routine 12/24/2019 6:08 Results for this AUTOMATED AM CDT procedure are i n the results section. CBC W/PLT COUNT & Routine 12/24/2019 5:51 Result s for this AUTO DIFFERENTIAL AM CDT procedure are in the results section. COMPREHENSIVE Routine 12/24/2019 5:51 Results fo r this METABOLIC PANEL AM CDT procedure ar e in the results section. CBC W/PLT COUNT & Routine 12/24/2019 5:51 Result s for this AUTO DIFFERENTIAL AM CDT procedure are in the results section. POCT-GLUCOSE METER Routine 12/23/2019 9:23 Resul ts for this PM CDT procedure are i n the results section. POCT-GLUCOSE METER Routine 12/23/2019 4:42 Resul ts for this PM CDT procedure are i n the results section. MR BRAIN WITHOUT IV Routine 12/23/2019 3:34 Resu lts for this CONTRAST PM CDT procedure are i n the results section. MR LOWER EXTREMITY Routine 12/23/2019 3:34 Resul ts for this JOINT ONLY WITHOUT IV PM CDT proced ure are in CONTRAST LEFT the results section. POCT-GLUCOSE METER Routine 12/23/2019 11:16 Resul ts for this AM CDT procedure are i n the results section. ARTERIAL DOPPLER LEGS Routine 12/23/2019 9:38 Re sults for this BILATERAL AM CDT procedure are i n the results section. AMMONIA Routine 12/23/2019 4:05 Results for this AM CDT procedure are i n the results section. CBC W/PLT COUNT & Routine 12/23/2019 4:00 Result s for this AUTO DIFFERENTIAL AM CDT procedure are in the results section. COMPREHENSIVE Routine 12/23/2019 4:00 Results fo r this METABOLIC PANEL AM CDT procedure ar e in the results section. CBC W/PLT COUNT & Routine 12/23/2019 4:00 Result s for this AUTO DIFFERENTIAL AM CDT procedure are in the results section. SARS-COV2/RT-PCR Routine 12/23/2019 3:59 Results for this ([facility]) AM CDT procedure are in the results section. POCT-GLUCOSE METER Routine 12/22/2019 8:34 Resul ts for this PM CDT procedure are i n the results section. POCT-GLUCOSE METER Routine 12/22/2019 4:43 Resul ts for this PM CDT procedure are i n the results section. POCT-GLUCOSE METER Routine 12/22/2019 11:31 Resul ts for this AM CDT procedure are i n the results section. POCT-GLUCOSE METER Routine 12/22/2019 6:30 Resul ts for this AM CDT procedure are i n the results section. CBC W/PLT COUNT & Routine 12/22/2019 5:14 Result s for this AUTO DIFFERENTIAL AM CDT procedure are in the results section. COMPREHENSIVE Routine 12/22/2019 5:14 Results fo r this METABOLIC PANEL AM CDT procedure ar e in the results section. CBC W/PLT COUNT & Routine 12/22/2019 5:14 Result s for this AUTO DIFFERENTIAL AM CDT procedure are in the results section. POCT-GLUCOSE METER Routine 12/21/2019 8:26 Resul ts for this PM CDT procedure are i n the results section. POCT-GLUCOSE METER Routine 12/21/2019 5:22 Resul ts for this PM CDT procedure are i n the results section. POCT-GLUCOSE METER Routine 12/21/2019 12:35 Resul ts for this PM CDT procedure are i n the results section. POCT-GLUCOSE METER Routine 12/21/2019 7:20 Resul ts for this AM CDT procedure are i n the results section. POCT-GLUCOSE METER Routine 12/21/2019 5:52 Resul ts for this AM CDT procedure are i n the results section. CBC W/PLT COUNT & Routine 12/21/2019 4:39 Result s for this AUTO DIFFERENTIAL AM CDT procedure are in the results section. COMPREHENSIVE Routine 12/21/2019 4:39 Results fo r this METABOLIC PANEL AM CDT procedure ar e in the results section. CBC W/PLT COUNT & Routine 12/21/2019 4:39 Result s for this AUTO DIFFERENTIAL AM CDT procedure are in the results section. C-REACTIVE PROTEIN Routine 12/21/2019 4:39 Resul ts for this AM CDT procedure are i n the results section. US ABDOMEN COMPLETE Routine 12/20/2019 9:17 Resu lts for this PM CDT procedure are i n the results section. POCT-GLUCOSE METER Routine 12/20/2019 8:23 Resul ts for this PM CDT procedure are i n the results section. POCT-GLUCOSE METER Routine 12/20/2019 5:31 Resul ts for this PM CDT procedure are i n the results section. CT BRAIN WITHOUT IV STAT 12/20/2019 4:04 Resu lts for this CONTRAST PM CDT procedure are i n the results section. AMMONIA STAT 12/20/2019 2:41 Results for this PM CDT procedure are i n the results section. BLOOD GAS, ARTERIAL STAT 12/20/2019 2:28 Resu lts for this PM CDT procedure are i n the results section. XR FOOT 2 VIEWS RIGHT Routine 12/20/2019 11:55 Re sults for this AM CDT procedure are i n the results section. XR FOOT 2 VIEWS LEFT Routine 12/20/2019 11:55 Res ults for this AM CDT procedure are i n the results section. POCT-GLUCOSE METER Routine 12/20/2019 11:28 Resul ts for this AM CDT procedure are i n the results section. POCT-GLUCOSE METER Routine 12/20/2019 6:20 Resul ts for this AM CDT procedure are i n the results section. OCCULT BLOOD, STOOL Routine 12/20/2019 6:19 Resu lts for this AM CDT procedure are i n the results section. CBC W/PLT COUNT & Routine 12/20/2019 5:06 Result s for this AUTO DIFFERENTIAL AM CDT procedure are in the results section. ROGER TITER AND PATTERN Routine 12/20/2019 5:06 Re sults for this AM CDT procedure are i n the results section. T4, FREE Routine 12/20/2019 5:06 Results for this AM CDT procedure are i n the results section. COMPREHENSIVE Routine 12/20/2019 5:06 Results fo r this METABOLIC PANEL AM CDT procedure ar e in the results section. CBC W/PLT COUNT & Routine 12/20/2019 5:06 Result s for this AUTO DIFFERENTIAL AM CDT procedure are in the results section. PERIPHERAL BLOOD Routine 12/20/2019 5:06 Results for this SMEAR - PATHOLOGIST AM CDT procedur e are in REVIEW the results section. PROTEIN AP Routine 12/20/2019 5:06 Results for this ELECTROPHORESIS, AM CDT procedure a re in SERUM the results section. KAPPA / LAMBDA LIGHT Routine 12/20/2019 5:06 Res ults for this CHAINS, SERUM AM CDT procedure are in the results section. ANTI-NUCLEAR ANTIBODY Routine 12/20/2019 5:06 Re sults for this (ROGER) AM CDT procedure are i n the results section. FERRITIN Routine 12/20/2019 5:06 Results for this AM CDT procedure are i n the results section. TSH/FREE T4 IF Routine 12/20/2019 5:06 Results f or this INDICATED AM CDT procedure are i n the results section. HAPTOGLOBIN Routine 12/20/2019 5:06 Results for this AM CDT procedure are i n the results section. RETICULOCYTE COUNT Routine 12/20/2019 5:06 Resul ts for this AM CDT procedure are i n the results section. VITAMIN B12 AND Routine 12/20/2019 5:06 Results for this FOLATE AM CDT procedure are i n the results section. IRON, TIBC, % SAT. Routine 12/20/2019 5:06 Resul ts for this (WITHOUT FERRITIN) AM CDT procedure are in the results section. D-DIMER Routine 12/20/2019 5:06 Results for this AM CDT procedure are i n the results section. FIBRINOGEN Routine 12/20/2019 5:06 Results for this AM CDT procedure are i n the results section. PT/APTT Routine 12/20/2019 5:06 Results for this AM CDT procedure are i n the results section. POCT-GLUCOSE METER Routine 12/19/2019 8:35 Resul ts for this PM CDT procedure are i n the results section. POCT-GLUCOSE METER Routine 12/19/2019 4:06 Resul ts for this PM CDT procedure are i n the results section. HEMODIALYSIS Routine 12/19/2019 4:02 INPATIENT PM CDT CBC W/PLT COUNT & Routine 12/19/2019 5:35 Result s for this AUTO DIFFERENTIAL AM CDT procedure are in the results section. LACTATE DEHYDROGENASE Add-On 12/19/2019 5:35 Re sults for this ([facility]) AM CDT procedure are i n the results section. BASIC METABOLIC PANEL Routine 12/19/2019 5:35 Re sults for this (7) AM CDT procedure are i n the results section. CBC W/PLT COUNT & Routine 12/19/2019 5:35 Result s for this AUTO DIFFERENTIAL AM CDT procedure are in the results section. POCT-GLUCOSE METER Routine 12/19/2019 5:24 Resul ts for this AM CDT procedure are i n the results section. POCT-GLUCOSE METER Routine 12/18/2019 9:35 Resul ts for this PM CDT procedure are i n the results section. POCT-GLUCOSE METER Routine 12/18/2019 4:05 Resul ts for this PM CDT procedure are i n the results section. POCT-GLUCOSE METER Routine 12/18/2019 7:45 Resul ts for this AM CDT procedure are i n the results section. POCT-GLUCOSE METER Routine 12/18/2019 6:14 Resul ts for this AM CDT procedure are i n the results section. POCT-GLUCOSE METER Routine 12/17/2019 9:44 Resul ts for this PM CDT procedure are i n the results section. POCT-GLUCOSE METER Routine 12/17/2019 5:52 Resul ts for this PM CDT procedure are i n the results section. POCT-GLUCOSE METER Routine 12/17/2019 12:22 Resul ts for this PM CDT procedure are i n the results section. HEMODIALYSIS Routine 12/17/2019 10:33 INPATIENT AM CDT POCT-GLUCOSE METER Routine 12/17/2019 6:18 Resul ts for this AM CDT procedure are i n the results section. CBC W/PLT COUNT & Routine 12/17/2019 4:14 Result s for this AUTO DIFFERENTIAL AM CDT procedure are in the results section. CBC W/PLT COUNT & Routine 12/17/2019 4:14 Result s for this AUTO DIFFERENTIAL AM CDT procedure are in the results section. COMPREHENSIVE Routine 12/17/2019 4:13 Results fo r this METABOLIC PANEL AM CDT procedure ar e in the results section. POCT-GLUCOSE METER Routine 12/16/2019 8:55 Resul ts for this PM CDT procedure are i n the results section. POCT-GLUCOSE METER Routine 12/16/2019 6:24 Resul ts for this PM CDT procedure are i n the results section. HEPATITIS B CORE Routine 12/16/2019 4:02 Results for this ANTIBODY, TOTAL PM CDT procedure ar e in the results section. HEPATITIS C ANTIBODY Routine 12/16/2019 4:02 Res ults for this PM CDT procedure are i n the results section. HEPATITIS B SURFACE Routine 12/16/2019 4:02 Resu lts for this ANTIGEN PM CDT procedure are i n the results section. HEPATITIS B SURFACE Routine 12/16/2019 4:02 Resu lts for this ANTIBODY PM CDT procedure are i n the results section. POCT-GLUCOSE METER Routine 12/16/2019 2:47 Resul ts for this PM CDT procedure are i n the results section. IR TUNNELED DIALYSIS Routine 12/16/2019 2:26 Res ults for this CATHETER PM CDT procedure are i n the results section. HEMODIALYSIS Routine 12/16/2019 12:37 INPATIENT PM CDT POCT-GLUCOSE METER Routine 12/16/2019 11:01 Resul ts for this AM CDT procedure are i n the results section. XR CHEST 1 VIEW Routine 12/16/2019 5:55 Results for this PORTABLE/BEDSIDE AM CDT procedure a re in the results section. POCT-GLUCOSE METER Routine 12/16/2019 5:51 Resul ts for this AM CDT procedure are i n the results section. CBC W/PLT COUNT & Routine 12/16/2019 4:08 Result s for this AUTO DIFFERENTIAL AM CDT procedure are in the results section. PROTHROMBIN TIME/INR Routine 12/16/2019 4:08 Res ults for this AM CDT procedure are i n the results section. BASIC METABOLIC PANEL Routine 12/16/2019 4:08 Re sults for this (7) AM CDT procedure are i n the results section. CBC W/PLT COUNT & Routine 12/16/2019 4:08 Result s for this AUTO DIFFERENTIAL AM CDT procedure are in the results section. SARS-COV2/RT-PCR Routine 12/16/2019 1:45 Results for this ([facility]) AM CDT procedure are in the results section. after 01/04/2019 Results EKG-SCANNED (01/05/2020 8:40 AM CDT) Narrative Performed At This result has an attachment that is no t available. RHYTHM STRIP - SCAN (01/05/2020 8:31 AM CDT)Only the most recent of3 results within the time period is included. Narrative Performed At This result has an attachment that is no t available. CARDIAC CATH REPORT - SCAN (01/05/2020 8:31 AM CDT) Narrative Performed At This result has an attachment that is no t available. CARDIAC CATH REPORT - SCAN (01/05/2020 8:31 AM CDT) Narrative Performed At This result has an attachment that is no t available. POC-Glucose meter (01/01/2020 6:33 AM CDT)Only the most recent of62 results within the time period is included. POC-Glucose Meter 102Comment: : TESTED AT 70 - 110 mg/dL [facility] [address], [place] [facility] [id number]: Metal Cnc Operator/Property Adjuster ID = [id number] for Anne Salgado Specimen Blood Performing Organization Address City/State/Zipcode Phone Number [facility] MED[facility] [address] [place] [address] CENTER CBC with platelet count + automated diff (01/01/2020 5:37 AM CDT)Only the most recent of16 resultswithin the time period is included. WBC 5.7 4.0 - 10.0 K/L [facility] RBC 2.41 (L) 4.00 - 5.00 M/L [facility] Hemoglobin 7.2 (L) 12.0 - 15.5 GM/DL [facility] Hematocrit 23.4 (L) 36.0 - 46.0 % [facility] MCV 97.1 82.0 - 99.0 fL [facility] MCH 29.9 27.0 - 33.0 pg [facility] MCHC 30.8 (L) 32.0 - 36.0 GM/DL [facility] RDW 22.0 (H) 12.0 - 15.0 % [facility] Platelets 84 (L) 150 - 430 K/CU MM [facility] MPV 10.5 6.0 - 11.5 fL [facility] nRBC 0 0 - 0 /100 WBC [facility] % Neutros 62 % [facility] % Lymphs 29 % [facility] % Monos 5 % [facility] % Eos 2 % [facility] % Baso 1 % [facility] # Neutros 3.54 1.80 - 8.00 K/L [facility] # Lymphs 1.66 1.48 - 4.50 K/L [facility] # Monos 0.28 0.00 - 1.30 K/L [facility] # Eos 0.12 0.00 - 0.50 K/L [facility] # Baso 0.07 0.00 - 0.20 K/L [facility] Immature Granulocytes-Relative 0 0 - 0 % S AR [facility] Specimen Blood Performing Organization Address City/State/Zipcode Phone Number [facility] [address] [place], [place] [address] Comprehensive metabolic panel (01/01/2020 5:37 AM CDT)Only the most recent of14 resultswithin the time period is included. Protein, Total 6.1 6.0 - 8.5 gm/dL [facility] Albumin 2.3 (L) 3.5 - 5.0 g/dL [facility] Alkaline Phosphatase 81 30 - 115 U/L [facility] Total Bilirubin 0.4 0.1 - 1.2 mg/dL [facility] Sodium 137 135 - 148 meq/L [facility] Potassium 3.7 3.6 - 5.5 meq/L [facility] Chloride 100 98 - 106 meq/L [facility] CO2 28 20 - 29 meq/L [facility] BUN 14 10 - 26 mg/dL [facility] Creatinine 2.31 (H) 0.50 - 1.20 mg/dL [facility] Glucose 100 70 - 110 mg/dL [facility] Calcium 7.5 (L) 8.5 - 10.5 mg/dL [facility] AST 15 5 - 40 U/L [facility] ALT 6 5 - 50 U/L [facility] EGFR 21Comment: ESTIMATED GFR mL/min/1.73 sq m [facility] IS NOT ACCURATE CREATININE CLEARANCE IN PREDICTING GLOMERULAR FILTRATION RATE. ESTIMATED GFR IS NOT APPLICABLE FOR DIALYSIS PATIENTS. Specimen Blood Narrative Performed At Metal Cnc Operator ID - ADMIN [facility] Performing Organization Address City/State/Zipcode Phone Number [facility] [address] [place], [place] [address] Magnesium (12/31/2019 6:05 AM CDT) Magnesium 1.6 1.5 - 3.0 mg/dL [facility] Specimen Blood Narrative Performed At Metal Cnc Operator ID - ADMIN [facility] Performing Organization Address City/State/Zipcode Phone Number [facility] [address] [place], [place] [address] Anaerobic culture (12/30/2019 1:59 PM CDT)Only the most recent of2 results within the time period is included. Result No anaerobes isolated [facility] Result <1+ Coagulase negative Staphylococcus (A) [facility] Specimen Tissue Organism Antibiotic Method Susceptibility Coagulase negative Staphylococcus Oxacillin 1: Susceptible Coagulase negative Staphylococcus Rifampin <=0.5: Susceptible Coagulase negative Staphylococcus Vancomycin <=0.5: Susceptible Performing Organization Address City/[facility] Phone Number [facility] [address] [place], [place] [address] Surgically obtained culture + gram stain (12/30/2019 1:59 PM CDT)Only the most recent of2 resultswithin the time period is included. Result 2+ Stenotrophomonas maltophilia (A) [facility] Gram Stain Result <1+ WBCs [facility] Gram Stain Result No organisms seen [facility] Specimen Tissue Organism Antibiotic Method Susceptibility Stenotrophomonas maltophilia Levofloxacin 1: Susceptible Stenotrophomonas maltophilia Trimethoprim + Sulfamethoxazole <=20: Susceptible Performing Organization Address City/[facility] Phone Number [facility] [address] [place], [place] [address] Tissue Exam (12/30/2019 1:38 PM CDT) Case Report Surgical Pathology Report Case: [id number] [facility] Authorizing Provider:Tala Woody DPM Collected: 12/30/2019 01:38 PM Ordering Location: [address] Med/SurgReceived:12/31/2019 06:52 AM Pathologist: Jovita Griffith MD Specimens: A) - Soft Tis vida, Other, left 5th proximal phalanx B) - Metatarsal, Left, left 5th metatarsal DIAGNOSIS A. BONE, LEFT FIFTH PROXIMAL PHALANX, BIOPSY: [facility] - SKIN WITH UNDERLYING CA RTILAGE WITH SURROUNDING ACUTE AND CHRONIC INFLAMMATION B. BONE, LEFT FIFTH METATARSAL, BIOPSY: - ACUTE OSTEOMYELITIS - SEPARATE FRAGMENTS OF F IBROCONNECTIVE TISSUE WITH ABSCESS, NECROSIS AND GRANULATION TISSUE FORMATION Signing Pathologist Direct Phone Line: [phone] CPT Code(s) MG/ew [facility] 31317 x2 [id number] x2 CLINICAL HISTORY Osteomyelitis of left 5th [facility] metatarsal, ulcer of bilateral feet SPECIMEN SOURCE A. Left 5th proximal [facility] phalanx. B. Left 5th metatarsal GROSS DESCRIPTION Specimen A is received in fi xative labeled with the patient's name and medical record number and designated as "soft tissue, other", consists of white-yellow bone fragments measuring 0.7 x 0.3 x 0.3 cm. [facility] The specimen is submitted entirely into A1 and into decal solution. Specimen B is received in fi xative labeled with the patient's name and medical record number and designated as "metatarsal left", consists of four red-brown tissue and bone fragments measuring 2.0 x 0.5 x 0.5 cm in aggregate. the specimen is entirely B1 and into decal solution. MG/ew MICROSCOPIC DESCRIPTION A-B. Performed. [facility] Gross assessment was [facility] performed at [facility], Department of Pathology, [address] [place] [id number], Technical component was [facility] performed at [place], Department of Pathology, [address] [place] [id number], Professional component [facility] was performed at [facility] Department of Pathology, [address] [place] [address], Specimen Tissue Tissue - Metatarsal, Left Narrative Performed At This result has an attachment that is no t available. Performing Organization Address City/State/Zipcode Phone Number [facility] [address] [place] [phone] SARS-CoV2/RT-PCR (Asymptomatic ONLY) (12/30/2019 5:11 AM CDT)Only the most recent of3 resultswithin the time period is included. SARS-COV2/RT-PCR Negative Not Detected, Negative, [facility] See external report for MEDICAL CENTER linked test SARS-COV-2 PERFORMING LAB [facility] Specimen Other Narrative Performed At Negative result for this test determines that [facility] SARS-CoV-2 RNA was not present in the specimen above the Limit of Detection (LOD).However, Negative results do not preclude SARS-CoV-2 infection and should not be used as the sole basis for treatment or patient management decisions. Negative results must be combined with clinical observations, patient history, and epidemiological information. A false negative result may occur if a specimen is improperly collected, transported or handled.A false negative result should be considered if patient's recent exposures or clinical presentation indicate that COVID-19 (SARS-CoV-2) is likely and diagnostic tests for other causes of illness are negative.Re-testing should be considered in cases of suspected false negatives. The limit of detection for this assay is 800 copies/mL. This SARS CoV-2 test is a real-time RT-PCR test intended for the qualitative detection of nucleic acid from SARS-CoV-2 in a nasopharyngeal swab specimen collected from individuals suspected of COVID-19 by their healthcare provider. This test has not been Food and Drug Administration (FDA) cleared or approved.This is a modified version of an approved Emergency Use Authorization (EUA) and is in the process of review by the FDA. Once authorized by the FDA, the issued EUA will be effective until the declaration that circumstances exist justifying the authorization of the emergency use of in vitro diagnostic tests for detection and/or diagnosis of COVID-19 is terminated under Section 564(b)(2) of the Act or the EUA is revoked under Section 564(g) of the Act. Fact Sheet for Healthcare Providers: https://www.[employer].com/sites/default/files/pro duct/documents/Fact_Sheet_HC_Providers_Lyra_SA RS-CoV-2.pdf Fact Sheet for Healthcare Patients: https://www.[employer].com/sites/default/files/pro duct/documents/Fact_Sheet_Patients_Lyra_SARS-C oV-2.pdf Performing Laboratory: [address] [place] [address] Performing Organization Address City/State/Zipcode Phone Number [address] [address] [place] MR lower extremity without IV contrast left side (12/27/2019 4:30 PM CDT) Specimen Narrative Performed At FINAL REPORT [facility] MRI OF THE LEFT FOOT WITHOUT CONTRAST HISTORY: Wound dehiscence, osteomyelitis COMPARISON: MRI of the left ankle/hindfo ot of 12/23/2019, left foot radiographs of 12/20/2019 TECHNIQUE: Multiplanar multisequence MRI of the left foot was targeted to the area of clinical concern , the forefoot. No intravenous contrast was utilized. FINDINGS: Status post amputation of the great toe at the level of the articular surface of the first metatarsal head. Th ere is no specific MRI evidence of osteomyelitis in the first m etatarsal remnant. No fluid collection is seen adjacent to the first metatarsal remnant. There is no evidence for osteoarthritis in the second, third, and fourth toes. Evaluation for marrow edema in the foot is somewhat limited due to a relatively diffuse increase in T2/STIR m arrow signal throughout the foot. There does appear to be an ulcer plantar to the fifth MTP joint. There is abnormal hypointense T1 hyperin tense T2/STIR signal in the fifth metatarsal head and neck, suspicio us for osteomyelitis. There is less pronounced hypointense T1/hyperi ntense T2/STIR signal at the base of the fifth proximal phalanx which could represent early changes of osteomyelitis. No abscess is seen adjacent to this ulcer. There is diffuse edema like signal in th e musculature of the forefoot suggestive of denervation. No intramuscu lar fluid collection is identified. The Lisfranc ligament complex appears in tact. IMPRESSION: 1. Ulcer plantar to the fifth MTP joint. Abnormal signal in the fifth metatarsal head/neck and at the base of the fifth proximal phalanx, suspicious for osteomyelitis. 2. Status post amputation of the great t oe at the level of the articular surface of the metatarsal head . No evidence of osteomyelitis in the first metatarsal re mnant. Signed: Lynda Ring MD Report Verified Date/Time:12/27/2019 16:55:07 Reading Location: [facility] Radiology Reading Room Procedure Note Interface, External Ris In - 12/27/2019 4:57 PM CDT FINAL REPORT MRI OF THE LEFT FOOT WITHOUT CONTRAST HISTORY: Wound dehiscence, osteomyelitis COMPARISON: MRI of the left ankle/hindfo ot of 12/23/2019, left foot radiographs of 12/20/2019 TECHNIQUE: Multiplanar multisequence MRI of the left foot was targeted to the area of clinical concern , the forefoot. No intravenous contrast was utilized. FINDINGS: Status post amputation of the great toe at the level of the articular surface of the first metatarsal head. Th ere is no specific MRI evidence of osteomyelitis in the first m etatarsal remnant. No fluid collection is seen adjacent to the first metatarsal remnant. There is no evidence for osteoarthritis in the second, third, and fourth toes. Evaluation for marrow edema in the foot is somewhat limited due to a relatively diffuse increase in T2/STIR m arrow signal throughout the foot. There does appear to be an ulcer plantar to the fifth MTP joint. There is abnormal hypointense T1 hyperin tense T2/STIR signal in the fifth metatarsal head and neck, suspicio us for osteomyelitis. There is less pronounced hypointense T1/hyperi ntense T2/STIR signal at the base of the fifth proximal phalanx which could represent early changes of osteomyelitis. No abscess is seen adjacent to this ulcer. There is diffuse edema like signal in th e musculature of the forefoot suggestive of denervation. No intramuscu lar fluid collection is identified. The Lisfranc ligament complex appears in tact. IMPRESSION: 1. Ulcer plantar to the fifth MTP joint. Abnormal signal in the fifth metatarsal head/neck and at the base of the fifth proximal phalanx, suspicious for osteomyelitis. 2. Status post amputation of the great t oe at the level of the articular surface of the metatarsal head . No evidence of osteomyelitis in the first metatarsal re mnant. Signed: Lynda Ring MD Report Verified Date/Time: 12/27/2019 1 6:55:07 Reading Location: [facility] Radiology Reading Room Performing Organization Address City/State/Zipcode Phone Number [facility] Wound culture + gram stain (12/27/2019 12:02 PM CDT) Result 1+ Stenotrophomonas maltophilia (A) [facility] Result 1+ Kary parapsilosis (A) [facility] Gram Stain Result <1+ WBCs [facility] Gram Stain Result <1+ gram negative rods [facility] Specimen Wound Organism Antibiotic Method Susceptibility Stenotrophomonas maltophilia Levofloxacin 2: Susceptible Stenotrophomonas maltophilia Trimethoprim + Sulfamethoxazole <=20: Susceptible Performing Organization Address City/State/Zipcode Phone Number [facility] [address] [facility] [place] [address] TRANSFUSION SERVICE REPORT - SCAN (12/26/2019 6:02 PM CDT)Only the most recent of2 resultswithin the time period is included. Narrative Performed At This result has an attachment that is no t available. CTA AAA and Runoff (12/26/2019 3:27 PM CDT) Specimen Narrative Performed At Addendum Begins [employer] RIS REPORT STATUS:A I agree with the nonvascular findings wi th exceptions and emphasis as below: *Moderate right and small left pleural e ffusions are partially visualized. *Large volume ascites. *Diffuse anasarca *The reflux of contrast into the hepatic veins is concerning for volume overload. Signed: Gerry Crum MD Report Verified Date/Time:12/27/2019 11:38:28 Reading Location: [facility] [email or web address] Reading Room - [place] [id number] Addendum Ends FINAL REPORT CT angiography of the abdominal aorta an saige runoff, 26-Dec-19 INDICATION: This is a 64 year old female with with lower leg penetrating trauma presents for assessme nt. TECHNIQUE: Spiral acquisition before and during intravenous contrast administration using a [employer] multidetector CT scanner. Images were obtained before and during the dynamic p assage of intravenous contrast material.Multi-planar 3-D v olume-rendering reconstruction was performed using an independent works tation interactively by the interpreting physician as well as the 3- D specialist for optimal visualisation of the abdominal aorta, pe lvic arteries, and its peripheral branches. Please refer to the contrast sheet scann ed in the RIS system for the amount and route of contrast given. This exam was performed according to our departmental dose-optimisation programme, which inclu jad automated exposure control, adjustment of the mA and/or kV according to patient size and/or use of iterative reconstruction t echnique. Dose modulation, iterative reconstruction, and/or weight based adjustment of the mA/kV was utilized to reduce the radiation dos e to as low as reasonably achievable. FINDINGS: VASCULAR: A central venous catheter is partially s een, with tip identified in the juncture of the SVC/RA. Coronary artery calcification is identif ied in all three coronary territories, incompletely assessed. Ther e could be fossa stent identified in the LCx and RCA territory, again incompletely assessed. Biatrial enlargement is identified, righ t greater than left. The IVC is prominent. The left ventricle could b e mildly prominent. There is likely subendocardial hypodensity identi fied in the apex, also along the lateral wall that may suggest effect of underlying coronary artery disease; correlate clinically. The central pulmonary artery is enlarged , and correlate with appropriate aetiology. No evidence of ce ntral pulmonary artery embolism is observed. The descending thoracic aorta is remarka ble for mixture of calcific and noncalcific atherosclerosis. No ecta nuris or aneurysmal dilation is seen. The abdominal aorta is normal in course and calibre. However, I will to moderate calcification is identified, and substantial noncalcific atheroma is present. For example, at the takeoff of the SMA, the thickness of the noncalcific atheroscler otic plaque is approximately, at 6 mm image 154. Moderate atherosclero sis is identified infrarenal abdominal aorta. No obstructive lesion i s visualised. No acute aortic pathology is seen includ ing dissection or contained rupture. No ectasia or aneurysmal dilati on is noted. Quantitative dimensions of the abdominal aorta are as follows: 1.9 cm at the mesenteric segment; 1.8 cm at the renal segment,; and 1.8 cm at the aortic bifurcation. At least a moderate stenosis is identifi ed in the takeoff of the coeliac axis, at image 135, of uncertain significance in the absence of GI symptoms. The SMA has calcific and noncalcific atherosclerosis with only mild to moderate lesion presen t. Mild atherosclerosis is identified distally, considered nonobstr uctive in nature. The TYLER is patent. Significant lesion is identified the ann gin of the takeoff of the left renal artery and remainder the righ t renal artery is patent. Nonobstructive atherosclerosis identifie d in the right renal artery. Significant stenosis is seen at the take off of the left common iliac artery substantial calcific and noncalci fic atherosclerosis identified, image 262, with minimum diam eter of 3.0 x 3.6 mm, when compared to average diameter of 9 mm. Re mainder of the left common iliac artery has nonobstructive calcific and noncalcific atherosclerosis identified. The left ext ernal iliac artery has nonobstructive atherosclerosis present. Similar finding is seen in the left common femoral artery. There co uld be either atherosclerotic ulceration/localised nonflow-limiting di ssection identified in the distal left common femoral artery at tyler ge 405. In the left, long stent system is identi fied along the majority of the pathway of the left SFA. The stent i s patent, with only minimal intimal hyperplasia identified. However, significant calcification identified of the clark's point left SFA, for e xample at image 516, at the distal level, the stent itself becomes s ubstantially oval in shape. This extends into image 533. The stent s eems to be patent at this level, however, the hemodynamic signific ance is difficult to comment upon, if any. The left tibioperoneal javier nk is patent with nonobstructive atherosclerosis identifie d. The left popliteal artery is patent. How ever, proximally, there is substantial calcification identified, fo r example image 60, and minimum luminal diameter at this level i s approximately 2.5 mm, when compared to a relatively normal looking segment more distally of 5.2 mm there may suggest a 50% reduction in diameter.. Remainder of the left popliteal artery has no obstructive lesion appreciated. In the left lower extremity the left tib ioperoneal trunk has nonobstructive calcification identified. The left anterior tibial artery is patent, with minimal nonobstru ctive calcific lesion identified, and the dorsalis pedis arter y is well seen. The left peroneal artery is also well seen down t o level of the ankle but becomes a small calibre vessel above the ankle. The left posterior tibial artery is widely patent well seen down to level of the ankle and with focal calcification present at the takeoff of the plantar arch. In the right, the right common iliac, ri ght external iliac, and the right common femoral artery has mixture of calcific and noncalcific atherosclerosis identified but only mild to moderate diffuse disease is present. No obstructive lesion is not ed. In the distal right common iliac artery at image 294, calcif ication is identified minimum luminal diameter is 7.0 x 6.9 mm in diam eter. In the right, the right SFA has diffuse calcification identified and not filled by contrast indicating occlus ion. The substantial calcification also extends into the prox imal right popliteal artery. The right profunda system has nonobstruc tive atherosclerosis identified. Patient is post right femoral to poplite al bypass graft, and this graft is patent, and no distal or proxim al anastomotic stenosis is seen. Distal to the anastomotic site, the righ t popliteal artery is patent, with [id number] diffuse calcificat ion identified with no obstructive lesion appreciated. In the right lower extremity, the right tibioperoneal trunk has eccentric nonobstructive calcification i dentified. The right peroneal artery is well seen down to level of the ankle. The right anterior tibial artery has severe diffuse disease /subtotal occlusion identified extending into the dorsalis p john artery though the distal dorsalis pedis artery is still enhanced by contrast. The right posterior tibial artery is well seen thr oughout the course, and the plantar arch is seen distally. NON-VASCULAR: There are bibasal pleural effusion ident ified, right greater than left with associated atelectatic changes /consolidation. Coronary vasculature is prominent suggesting unde rlying cardiac congestion. Correlate with clinical examination. Sesar e subsegmental atelectatic changes are seen. In the abdomen, the liver and spleen raquel ears unremarkable. The liver edge is smooth. No abnormal enhancing st ructures identified. The gallbladder is not well appreciated. The pancreas appears grossly unremarkable. The adrenal glands appears unremarkable though assessment is limited. No acute renal pathology is seen and no hydronephrosis or perirenal fluid collection is identified. Overall, the kidneys appears to be somewhat small in size. In prior dictati on, there is an clinical diagnosis of renal failure in the above may reflect the kidney findings. Bowel is incompletely assessed by CT ang iography as enteric contrast is not given. Assessment is limited. In the available images, no obvious bowel dilation is identified. The uterus is not present. No abnormal a dnexal mass is seen. Large amount of ascites identified abdom en extending into the pelvis. No free air is seen in the abdomen and p greyson. No obvious retroperitoneal adenopathy is seen thoug h assessment is limited. The bladder is distended. A degree of subcutaneous oedema/anasarca is identified in the abdomen and pelvis. There could be some surgical clips ident ified in the medial aspect of the left lower extremity at image 81. Co rrelate with appropriate procedure history. In the available imag es, no obvious wound is identified, however, this should be easi ly assessed clinically. Please see 3-D data set for details. An addendum will be dictated thereafter, if needed. CONCLUSIONS: 1. Atherosclerosis is identified in the abdominal aorta that is nonobstructive. No ectasia or aneurysmal dilation is seen. There is no evidence of acute aortic pathology, s pecifically, there is no dissection, intramural hematoma, or cont ained rupture. Quantitative dimension of the abdominal aorta are as noted. 2. At the origin of the left common sergio c artery, substantial calcific and noncalcific atherosclerosis is identified, with minimum luminal diameter is 3.0 x 3.6 mm when co mpared to reference diameter more distally of 9 mm suggesting more th an 50% reduction in diameter. Remainder of the the left and the right pelvic arteries have no obstructive lesion identified though dif fuse atherosclerosis is present. 3. Long stent system is identified in th e left SFA that is patent. However, in the distal left SFA, the jose luis moo artery substantial calcification identified and the stent a t this level is very oval in shape, starting from image 513, extends to image 534. Hemodynamic significance is difficult to comment upo n. Correlate with duplex ultrasound scan. In the proximal left popliteal artery, a t image 602, a 50% reduction in diameter is identified. Thereafter re mainder of the of the left popliteal artery has nonobstructive athe rosclerosis identified. 4. In the right, the clark's point right SFA is not filled by contrast indicating occlusion. A patent right fem oral to popliteal bypass graft is identified. Distal to the bypas s graft, the right popliteal artery is also patent. 5. Details of the runoff vessels as desc ribed above. 6. Other findings as described above. In the available images, no obvious woun d is identified in the lower extremity, though an addendum will be di ctated thereafter, if needed. It appears patient has end-stage renal d isease. Diffuse ascites is identified. Left and right atrial enlargement is not ed. Diffuse coronary artery calcifications identified. The central p ulmonary artery is prominent with no evidence of central pulmonary ar ilda embolism present bibasal pleural effusion right greater than left . Correlate clinically. 7.An addendum will be dictated regar ding the non-vascular findings by the Preservationist Radiologist. Signed: Shlomo Dockery MD Report Verified Date/Time:12/27/2019 07:59:51 Reading Location: [place] [id number] CT Reading Room Procedure Note Interface, External Ris In - 12/27/2019 11:40 AM CDT Addendum Begins REPORT STATUS:A I agree with the nonvascular findings wi th exceptions and emphasis as below: *Moderate right and small left pleural e ffusions are partially visualized. *Large volume ascites. *Diffuse anasarca *The reflux of contrast into the hepatic veins is concerning for volume overload. Signed: Gerry Crum MD Report Verified Date/Time: 12/27/2019 1 1:38:28 [facility] F1 [id number] Add[address] En[address] FINAL REPORT CT angiography of the abdominal aorta an d runoff, 26-Dec-19 INDICATION: This is a 64 year old female with with lower leg penetrating trauma presents for assessme nt. TECHNIQUE: Spiral acquisition before and during intravenous contrast administration using a [employer] multidetector CT scanner. Images were obtained before and during the dynamic p assage of intravenous contrast material. Multi-planar 3-D vol ume-rendering reconstruction was performed using an independent works tation interactively by the interpreting physician as well as the 3- D specialist for optimal visualisation of the abdominal aorta, pe lvic arteries, and its peripheral branches. Please refer to the contrast sheet scann ed in the RIS system for the amount and route of contrast given. This exam was performed according to our departmental dose-optimisation programme, which inclu jad automated exposure control, adjustment of the mA and/or kV according to patient size and/or use of iterative reconstruction t echnique. Dose modulation, iterative reconstruction, and/or weight based adjustment of the mA/kV was utilized to reduce the radiation dos e to as low as reasonably achievable. FINDINGS: VASCULAR: A central venous catheter is partially s een, with tip identified in the juncture of the SVC/RA. Coronary artery calcification is identif ied in all three coronary territories, incompletely assessed. Ther e could be fossa stent identified in the LCx and RCA territory, again incompletely assessed. Biatrial enlargement is identified, righ t greater than left. The IVC is prominent. The left ventricle could b e mildly prominent. There is likely subendocardial hypodensity identi fied in the apex, also along the lateral wall that may suggest effect of underlying coronary artery disease; correlate clinically. The central pulmonary artery is enlarged , and correlate with appropriate aetiology. No evidence of ce ntral pulmonary artery embolism is observed. The descending thoracic aorta is remarka ble for mixture of calcific and noncalcific atherosclerosis. No ecta nuris or aneurysmal dilation is seen. The abdominal aorta is normal in course and calibre. However, I will to moderate calcification is identified, and substantial noncalcific atheroma is present. For example, at the takeoff of the SMA, the thickness of the noncalcific atheroscler otic plaque is approximately, at 6 mm image 154. Moderate atherosclero sis is identified infrarenal abdominal aorta. No obstructive lesion i s visualised. No acute aortic pathology is seen includ ing dissection or contained rupture. No ectasia or aneurysmal dilati on is noted. Quantitative dimensions of the abdominal aorta are as follows: 1.9 cm at the mesenteric segment; 1.8 cm at the renal segment,; and 1.8 cm at the aortic bifurcation. At least a moderate stenosis is identifi ed in the takeoff of the coeliac axis, at image 135, of uncertain significance in the absence of GI symptoms. The SMA has calcific and noncalcific atherosclerosis with only mild to moderate lesion presen t. Mild atherosclerosis is identified distally, considered nonobstr uctive in nature. The TYLER is patent. Significant lesion is identified the ann gin of the takeoff of the left renal artery and remainder the righ t renal artery is patent. Nonobstructive atherosclerosis identifie d in the right renal artery. Significant stenosis is seen at the take off of the left common iliac artery substantial calcific and noncalci fic atherosclerosis identified, image 262, with minimum diam eter of 3.0 x 3.6 mm, when compared to average diameter of 9 mm. Re mainder of the left common iliac artery has nonobstructive calcific and noncalcific atherosclerosis identified. The left ext ernal iliac artery has nonobstructive atherosclerosis present. Similar finding is seen in the left common femoral artery. There co uld be either atherosclerotic ulceration/localised nonflow-limiting di ssection identified in the distal left common femoral artery at tyler ge 405. In the left, long stent system is identi fied along the majority of the pathway of the left SFA. The stent i s patent, with only minimal intimal hyperplasia identified. However, significant calcification identified of the clark's point left SFA, for e xample at image 516, at the distal level, the stent itself becomes s ubstantially oval in shape. This extends into image 533. The stent s eems to be patent at this level, however, the hemodynamic signific ance is difficult to comment upon, if any. The left tibioperoneal javier nk is patent with nonobstructive atherosclerosis identifie d. The left popliteal artery is patent. How ever, proximally, there is substantial calcification identified, fo r example image 60, and minimum luminal diameter at this level i s approximately 2.5 mm, when compared to a relatively normal looking segment more distally of 5.2 mm there may suggest a 50% reduction in diameter.. Remainder of the left popliteal artery has no obstructive lesion appreciated. In the left lower extremity the left tib ioperoneal trunk has nonobstructive calcification identified. The left anterior tibial artery is patent, with minimal nonobstru ctive calcific lesion identified, and the dorsalis pedis arter y is well seen. The left peroneal artery is also well seen down t o level of the ankle but becomes a small calibre vessel above the ankle. The left posterior tibial artery is widely patent well seen down to level of the ankle and with focal calcification present at the takeoff of the plantar arch. In the right, the right common iliac, ri ght external iliac, and the right common femoral artery has mixture of calcific and noncalcific atherosclerosis identified but only mild to moderate diffuse disease is present. No obstructive lesion is not ed. In the distal right common iliac artery at image 294, calcif ication is identified minimum luminal diameter is 7.0 x 6.9 mm in diam eter. In the right, the right SFA has diffuse calcification identified and not filled by contrast indicating occlus ion. The substantial calcification also extends into the prox imal right popliteal artery. The right profunda system has nonobstruc tive atherosclerosis identified. Patient is post right femoral to poplite al bypass graft, and this graft is patent, and no distal or proxim al anastomotic stenosis is seen. Distal to the anastomotic site, the righ t popliteal artery is patent, with [id number] diffuse calcificat ion identified with no obstructive lesion appreciated. In the right lower extremity, the right tibioperoneal trunk has eccentric nonobstructive calcification i dentified. The right peroneal artery is well seen down to level of the ankle. The right anterior tibial artery has severe diffuse disease /subtotal occlusion identified extending into the dorsalis p john artery though the distal dorsalis pedis artery is still enhanced by contrast. The right posterior tibial artery is well seen thr oughout the course, and the plantar arch is seen distally. NON-VASCULAR: There are bibasal pleural effusion ident ified, right greater than left with associated atelectatic changes /consolidation. Coronary vasculature is prominent suggesting unde rlying cardiac congestion. Correlate with clinical examination. Seasr e subsegmental atelectatic changes are seen. In the abdomen, the liver and spleen raquel ears unremarkable. The liver edge is smooth. No abnormal enhancing st ructures identified. The gallbladder is not well appreciated. The pancreas appears grossly unremarkable. The adrenal glands appears unremarkable though assessment is limited. No acute renal pathology is seen and no hydronephrosis or perirenal fluid collection is identified. Overall, the kidneys appears to be somewhat small in size. In prior dictati on, there is an clinical diagnosis of renal failure in the above may reflect the kidney findings. Bowel is incompletely assessed by CT ang iography as enteric contrast is not given. Assessment is limited. In the available images, no obvious bowel dilation is identified. The uterus is not present. No abnormal a dnexal mass is seen. Large amount of ascites identified abdom en extending into the pelvis. No free air is seen in the abdomen and p greyson. No obvious retroperitoneal adenopathy is seen thoug h assessment is limited. The bladder is distended. A degree of subcutaneous oedema/anasarca is identified in the abdomen and pelvis. There could be some surgical clips ident ified in the medial aspect of the left lower extremity at image 81. Co rrelate with appropriate procedure history. In the available imag es, no obvious wound is identified, however, this should be easi ly assessed clinically. Please see 3-D data set for details. An addendum will be dictated thereafter, if needed. CONCLUSIONS: 1. Atherosclerosis is identified in the abdominal aorta that is nonobstructive. No ectasia or aneurysmal dilation is seen. There is no evidence of acute aortic pathology, s pecifically, there is no dissection, intramural hematoma, or cont ained rupture. Quantitative dimension of the abdominal aorta are as noted. 2. At the origin of the left common sergio c artery, substantial calcific and noncalcific atherosclerosis is identified, with minimum luminal diameter is 3.0 x 3.6 mm when co mpared to reference diameter more distally of 9 mm suggesting more th an 50% reduction in diameter. Remainder of the the left and the right pelvic arteries have no obstructive lesion identified though dif fuse atherosclerosis is present. 3. Long stent system is identified in th e left SFA that is patent. However, in the distal left SFA, the jose luis moo artery substantial calcification identified and the stent a t this level is very oval in shape, starting from image 513, extends to image 534. Hemodynamic significance is difficult to comment upo n. Correlate with duplex ultrasound scan. In the proximal left popliteal artery, a t image 602, a 50% reduction in diameter is identified. Thereafter re mainder of the of the left popliteal artery has nonobstructive athe rosclerosis identified. 4. In the right, the clark's point right SFA is not filled by contrast indicating occlusion. A patent right fem oral to popliteal bypass graft is identified. Distal to the bypas s graft, the right popliteal artery is also patent. 5. Details of the runoff vessels as desc ribed above. 6. Other findings as described above. In the available images, no obvious woun d is identified in the lower extremity, though an addendum will be di ctated thereafter, if needed. It appears patient has end-stage renal d isease. Diffuse ascites is identified. Left and right atrial enlargement is not ed. Diffuse coronary artery calcifications identified. The central p ulmonary artery is prominent with no evidence of central pulmonary ar ilda embolism present bibasal pleural effusion right greater than left . Correlate clinically. 7. An addendum will be dictated regardi ng the non-vascular findings by the Preservationist Radiologist. Signed: Shlomo Dockery MD Report Verified Date/Time: 12/27/2019 0 7:59:51 Reading Location: [place] [address] [address] Reading Room Performing Organization Address City/State/Zipcode Phone Number GE RIS Prepare Leuko-Red RBC (12/25/2019 11:54 PM CDT) CROSSMATCH COMPATIBLE SAFETRACE TX Unit ABO O Pos SAFETRACE TX UNIT NUMBER [id number] SAFETRACE TX Status TX_TIMEINCHART SAFETRACE TX Blood Bank Product RED BLOOD CELLS SAFETRACE TX PRODUCT CODE [id number] SAFETRACE TX Specimen Other Performing Organization Address [facility] Phone Number SAFETRACE TX Transfuse Leuko-Red RBC (12/24/2019 7:06 PM CDT)Only the most recent of2 resultswithin the time period is included.ABORH, manual (12/24/2019 8:25 AM CDT) Rh Factor POS [facility] ABO Grouping OComment: PINK TOP 12/24/19 @ [facility] 0824 Specimen Blood Performing Organization Address [facility] Phone Number [address] [address] [facility] Type and screen, automated (12/24/2019 6:08 AM CDT) ABO/RH AUTOMATED (BEAKER) O POSITIVEComment: ECHO [facility] Ab Scrn NEGATIVEComment: [facility] Specimen Blood Performing Organization Address [facility] Phone Number [address] [address] [phone] [facility] MR lower extremity joint only without IV contrast left side (12/23/2019 3:34 PM CDT) Specimen Narrative Performed At FINAL REPORT [facility] RIS MRI of the left hindfoot without and wit h intravenous contrast History: Radiograph dated December 20, 2019 Comparison: Radiograph dated November 302019 Technique: Multiplanar multisequence MRI of the left hindfoot was performed without and with intravenous c ontrast using the hindfoot osteomyelitis protocol Findings: There is no fracture, or malalignment. M ild to moderate degenerative changes are seen in the hindfoot and mid foot, with large osteophyte formation at the talonavicular joint. No marrow replacing process or cortical erosion is identified. There is no significant joint effusion. There is diffuse soft tissue edema at the ankle, but no loculated col lection is identified on this noncontrast exam. The extensor, flexor, peroneal and Achil les tendons are intact. There is a small amount of fluid around the fl exor hallucis longus tendon. The anterior and posterior tibiofibular, talofibular ligaments are intact. Deltoid ligament is also intact. IMPRESSION: No evidence of osteomyelitis in the hind foot. Diffuse soft tissue edema, no drainable collection is identified. Signed: Margot Jordan MD Report Verified Date/Time:12/23/2019 16:10:32 Reading Location: [facility] Reading Room Procedure Note Interface, External Ris In - 12/23/2019 4:12 PM CDT FINAL REPORT MRI of the left hindfoot without and wit h intravenous contrast History: Radiograph dated December 20, 2019 Comparison: Radiograph dated November 302019 Technique: Multiplanar multisequence MRI of the left hindfoot was performed without and with intravenous c ontrast using the hindfoot osteomyelitis protocol Findings: There is no fracture, or malalignment. M ild to moderate degenerative changes are seen in the hindfoot and mid foot, with large osteophyte formation at the talonavicular joint. No marrow replacing process or cortical erosion is identified. There is no significant joint effusion. There is diffuse soft tissue edema at the ankle, but no loculated col lection is identified on this noncontrast exam. The extensor, flexor, peroneal and Achil les tendons are intact. There is a small amount of fluid around the fl exor hallucis longus tendon. The anterior and posterior tibiofibular, talofibular ligaments are intact. Deltoid ligament is also intact. IMPRESSION: No evidence of osteomyelitis in the hind foot. Diffuse soft tissue edema, no drainable collection is identified. Signed: Margot Jordan MD Report Verified Date/Time: 12/23/2019 1 6:10:32 Reading Location: [id number] sult Reading Room Performing Organization Address [facility] Phone Number [facility] MR brain without IV contrast (12/23/2019 3:34 PM CDT) Specimen Narrative Performed At FINAL REPORT [facility] MR, BRAIN, WITHOUT CONTRAST INDICATION: Headache, post traumatic TECHNIQUE: Multiplanar, multisequence MR imaging of the brain without intravenous contrast. COMPARISON: CT 12/20/2019 FINDINGS: Intracranial: No acute intracranial hemo rrhage. No restricted diffusion to suggest acute infarct. No m ass effect. No hydrocephalus. Visualized intracranial flow voids are o f normal course and caliber. Mild generalized cerebral volume loss. S cattered foci of T2 prolongation within the periventricular and subcortical white matter are a nonspecific finding commonly attri buted to chronic small vessel ischemic disease. Sinuses: No evidence of sinusitis. Masto ids are clear. Orbits: Globes are intact. Calvarium \\T\\ scalp: Unremarkable. IMPRESSION: No acute intracranial abnormality. Signed: Mable Muniz MD Report Verified Date/Time:12/23/2019 15:43:24 Procedure Note Interface, External Ris In - 12/23/2019 3:45 PM CDT FINAL REPORT MR, BRAIN, WITHOUT CONTRAST INDICATION: Headache, post traumatic TECHNIQUE: Multiplanar, multisequence MR imaging of the brain without intravenous contrast. COMPARISON: CT 12/20/2019 FINDINGS: Intracranial: No acute intracranial hemo rrhage. No restricted diffusion to suggest acute infarct. No m ass effect. No hydrocephalus. Visualized intracranial flow voids are o f normal course and caliber. Mild generalized cerebral volume loss. S cattered foci of T2 prolongation within the periventricular and subcortical white matter are a nonspecific finding commonly attri buted to chronic small vessel ischemic disease. Sinuses: No evidence of sinusitis. Masto ids are clear. Orbits: Globes are intact. Calvarium \\T\\ scalp: Unremarkable. IMPRESSION: No acute intracranial abnormality. Signed: Mable Muniz MD Report Verified Date/Time: 12/23/2019 1 5:43:24 Performing Organization Address City/State/Zipcode Phone Number [place] Arterial Doppler Legs Bilateral (12/23/2019 9:38 AM CDT) Specimen Narrative Performed At FINAL REPORT [place] EXAM: Bilateral Lower Extremity Arterial Ultrasound HISTORY: non healing ulcer , non palpabl e pulses COMPARISON: None. TECHNIQUE: 2-D, color and spectral Doppl er waveform imaging was performed. FINDINGS: The lower extremity arterial structures demonstrate triphasic flow throughout, except as noted below. No ev idence of elevated velocities, except as noted below. No fl ow discontinuity, except as noted below. The velocities below are in centimeters per second. RIGHT: Common femoral artery - 97 Superficial femoral artery proximal - 65 mid - 68 distal - 42 Popliteal artery - 69 Posterior tibial artery - 111 Anterior tibial artery - 48, monophasic Peroneal artery - 40, monophasic LEFT: Common femoral artery - 109, biphasic, w ith an echogenic stent Superficial femoral artery, biphasic, co ntaining an echogenic stent proximal - 134 mid - 120 distal - 96 Popliteal artery - 80 Posterior tibial artery - 74, monophasic Anterior tibial artery - 65, monophasic Peroneal artery - 56, monophasic IMPRESSION: Bilateral below the knee moderate to sev ere peripheral arterial disease. Signed: Luis Alberto Ball MD Report Verified Date/Time:12/23/2019 11:22:31 Reading Location: [facility] Radiology [facility] Room Procedure Note Interface, External Ris In - 12/23/2019 11:24 AM CDT FINAL REPORT EXAM: Bilateral Lower Extremity Arterial Ultrasound HISTORY: non healing ulcer , non palpabl e pulses COMPARISON: None. TECHNIQUE: 2-D, color and spectral Doppl er waveform imaging was performed. FINDINGS: The lower extremity arterial structures demonstrate triphasic flow throughout, except as noted below. No ev idence of elevated velocities, except as noted below. No fl ow discontinuity, except as noted below. The velocities below are in centimeters per second. RIGHT: Common femoral artery - 97 Superficial femoral artery proximal - 65 mid - 68 distal - 42 Popliteal artery - 69 Posterior tibial artery - 111 Anterior tibial artery - 48, monophasic Peroneal artery - 40, monophasic LEFT: Common femoral artery - 109, biphasic, w ith an echogenic stent Superficial femoral artery, biphasic, co ntaining an echogenic stent proximal - 134 mid - 120 distal - 96 Popliteal artery - 80 Posterior tibial artery - 74, monophasic Anterior tibial artery - 65, monophasic Peroneal artery - 56, monophasic IMPRESSION: Bilateral below the knee moderate to sev ere peripheral arterial disease. Signed: Luis Alberto Ball MD Report Verified Date/Time: 12/23/2019 1 1:22:31 Reading Location: [facility] Radiology Readin Room Performing Organization Address City/State/Zipcode Phone Number GE Kartela Ammonia (12/23/2019 4:05 AM CDT)Only the most recent of2 resultswithin the time period is included. Ammonia 36 17 - 80 mol/L [address] [facility] Specimen Blood Narrative Performed At Metal Cnc Operator ID - ADMIN [facility] Performing Organization Address [facility] Phone Number [facility] [address] [place], [place] [address] C-Reactive Protein (12/21/2019 4:39 AM CDT) CRP 1.63 (H) 0.00 - 0.50 mg/dL [facility] Specimen Blood Narrative Performed At Metal Cnc Operator ID - ADMIN [facility] Performing Organization Address [facility] Phone Number [facility] [address] [place], [place] [address] US abdomen complete (12/20/2019 9:17 PM CDT) Specimen Narrative Performed At FINAL REPORT [place] INDICATION: thrombocytopenia / eval for hepatosplenomegaly COMPARISON: None. TECHNIQUE:Real-time transabdominal g ray scale and color Doppler ultrasound of the abdomen. FINDINGS: Liver: Size: 14.3 cm. Echogenicity: Heterogeneous Masses/lesions: None. Intrahepatic bile ducts: Normal . Common bile duct: 0.7 cm. MPV: 1.0 cm. Gallbladder: Bowel noted within the gallbladder fossa . The gallbladder is not identified. Pancreas: Head and uncinate process: Not well visualize d due to overlying bowel gas. Body and tail: Not well-seen. Spleen: Size: 11.8 x 4.8 x 4.0 cm. Echogenicity: Unremarkable. Right kidney: Size: 11.0 x 4.4 x 1.4 cm. Parenchyma: Increased echogenic ity. No cysts. No stones. Hydronephrosis: None. Left kidney: Size: 11.3 x 4.5 x 1.3 cm. Parenchyma: Increased echogenic ity. No cysts. No stones. Hydronephrosis: None. Ascites: Present. Regional Vasculature: The visible abdomi nal aorta, IVC and hepatic veins are patent. Additional findings: Right pleural effus ion present. IMPRESSION: Ascites. The gallbladder is not visualized. No hepatosplenomegaly. The pancreas is not well-visualized. Increased renal echogenicity is a nonspe cific finding but can be seen with medical renal disease. Signed: Hever Marin MD Report Verified Date/Time:12/20/2019 22:02:21 Procedure Note Interface, External Ris In - 12/20/2019 10:04 PM CDT FINAL REPORT INDICATION: thrombocytopenia / eval for hepatosplenomegaly COMPARISON: None. TECHNIQUE: Real-time transabdominal gra y scale and color Doppler ultrasound of the abdomen. FINDINGS: Liver: Size: 14.3 cm. Echogenicity: Heterogeneous Masses/lesions: None. Intrahepatic bile ducts: Normal. Common bile duct: 0.7 cm. MPV: 1.0 cm. Gallbladder: Bowel noted within the gallbladder fossa . The gallbladder is not identified. Pancreas: Head and uncinate process: Not well visualized due to overlying bowel gas. Body and tail: Not well-seen. Spleen: Size: 11.8 x 4.8 x 4.0 cm. Echogenicity: Unremarkable. Right kidney: Size: 11.0 x 4.4 x 1.4 cm. Parenchyma: Increased echogenicity. No cysts. No stones. Hydronephrosis: None. Left kidney: Size: 11.3 x 4.5 x 1.3 cm. Parenchyma: Increased echogenicity. No cysts. No stones. Hydronephrosis: None. Ascites: Present. Regional Vasculature: The visible abdomi nal aorta, IVC and hepatic veins are patent. Additional findings: Right pleural effus ion present. IMPRESSION: Ascites. The gallbladder is not visualized. No hepatosplenomegaly. The pancreas is not well-visualized. Increased renal echogenicity is a nonspe cific finding but can be seen with medical renal disease. Signed: Hever Marin MD Report Verified Date/Time: 12/20/2019 2 2:02:21 Performing Organization Address City/State/Zipcode Phone Number [place] CT brain without IV contrast (12/20/2019 4:04 PM CDT) Specimen Narrative Performed At FINAL REPORT [place] CT, BRAIN, WITHOUT CONTRAST INDICATION: Head trauma, abnormal mental status (Age 19-64y) TECHNIQUE: Noncontrast axial imaging was obtained from the vertex to the skull base. Axial images were recons tructed using a bone algorithm. DOSE REDUCTION: Dose modulation, iterati ve reconstruction, and/or weight-based adjustment of the mA/kV was utilized to reduce the radiation dose to as low as reasonably a chievable. COMPARISON: None. FINDINGS: Intracranial: No intracranial hemorrhage or abnormal extra-axial collection. No evidence of acute territo rial infarct. No mass effect. No hydrocephalus. Osseous structures: No fracture. No susp icious lesion. Left frontal scalp hematoma. Paranasal sinuses and mastoid air cells: No evidence of sinusitis. Mastoids are clear. Orbital contents: Globes are intact. IMPRESSION: Left frontal scalp hematoma without unde rlying fracture or acute intracranial hemorrhage. If there is persistent clinical concern for intracranial pathology, MR examination is recommended for furthe r characterization. Signed: Mabel Muniz MD Report Verified Date/Time:12/20/2019 16:08:40 Procedure Note Interface, External Ris In - 12/20/2019 4:10 PM CDT FINAL REPORT CT, BRAIN, WITHOUT CONTRAST INDICATION: Head trauma, abnormal mental status (Age 19-64y) TECHNIQUE: Noncontrast axial imaging was obtained from the vertex to the skull base. Axial images were recons tructed using a bone algorithm. DOSE REDUCTION: Dose modulation, iterati ve reconstruction, and/or weight-based adjustment of the mA/kV was utilized to reduce the radiation dose to as low as reasonably a chievable. COMPARISON: None. FINDINGS: Intracranial: No intracranial hemorrhage or abnormal extra-axial collection. No evidence of acute territo rial infarct. No mass effect. No hydrocephalus. Osseous structures: No fracture. No susp icious lesion. Left frontal scalp hematoma. Paranasal sinuses and mastoid air cells: No evidence of sinusitis. Mastoids are clear. Orbital contents: Globes are intact. IMPRESSION: Left frontal scalp hematoma without unde rlying fracture or acute intracranial hemorrhage. If there is persistent clinical concern for intracranial pathology, MR examination is recommended for furthe r characterization. Signed: Malbe Muniz MD Report Verified Date/Time: 12/20/2019 1 6:08:40 Performing Organization Address City/[facility] Phone Number [facility] Blood gas, arterial (12/20/2019 2:28 PM CDT) pH, Arterial 7.33 (L) 7.35 - 7.45 [facility] pCO2, Arterial 58 (H) 35 - 45 mmHg [facility] pO2, Arterial 109 (H) 80 - 90 mmHg [facility] O2 Sat, Arterial 97.5 (H) 96.0 - 97.0 % [facility] HCO3, Arterial 30 (H) 21 - 29 mmol/L [facility] Base Excess, Arterial 2.6 -2.0 - 3.0 mmol/L [facility] Patient Temperature 37.0 C [facility] FIO2 32.0 % [facility] Specimen Blood, Arterial Performing Organization Address City/[facility]/Zipcode Phone Number [facility] [address] [facility] [place] [place] [address] XR foot 2 views right (12/20/2019 11:55 AM CDT) Specimen Narrative Performed At FINAL REPORT [facility] TECHNIQUE: Two views of the right foot a nd two views of left foot HISTORY: Rule out osteomyelitis. COMPARISON: None. IMPRESSION: Right foot: Limited views. No acute displaced fracture or dislocati on. Mild scattered joint space narrowing. 0.8 cm linear metallic density in the pl aretha soft tissues at the level of the distal first metatarsal. Vascular calcifications. Left foot: Bony demineralization. Status post amputation of the first phal anges. Irregular appearance of the distal first metatarsal, with dis tinct cortex, likely postsurgical change. Mild scattered joint space narrowing. Multiple soft tissue irregularities at t he lateral foot at the level of the proximal and distal fifth metatar manisha. Indistinct cortex at the distal fifth metatarsal is suspicious fo r osteomyelitis. Consider MRI if clinically indicated to confirm osteo myelitis. Soft tissue swelling at the forefoot. Va scular calcifications. Signed: Luis Alberto Ball MD Report Verified Date/Time:12/20/2019 15:15:25 Reading Location: [facility] Radiology Readin g Room Procedure Note Interface, External Ris In - 12/20/2019 3:17 PM CDT FINAL REPORT TECHNIQUE: Two views of the right foot a nd two views of left foot HISTORY: Rule out osteomyelitis. COMPARISON: None. IMPRESSION: Right foot: Limited views. No acute displaced fracture or dislocati on. Mild scattered joint space narrowing. 0.8 cm linear metallic density in the pl aretha soft tissues at the level of the distal first metatarsal. Vascular calcifications. Left foot: Bony demineralization. Status post amputation of the first phal anges. Irregular appearance of the distal first metatarsal, with dis tinct cortex, likely postsurgical change. Mild scattered joint space narrowing. Multiple soft tissue irregularities at t he lateral foot at the level of the proximal and distal fifth metatar manisha. Indistinct cortex at the distal fifth metatarsal is suspicious fo r osteomyelitis. Consider MRI if clinically indicated to confirm osteo myelitis. Soft tissue swelling at the forefoot. Va scular calcifications. Signed: Luis Alberto Ball MD Report Verified Date/Time: 12/20/2019 1 5:15:25 Reading Location: [facility] Radiology Readin g Room Performing Organization Address City/State/Zipcode Phone Number K[place] XR foot 2 views left (12/20/2019 11:55 AM CDT) Specimen Narrative Performed At FINAL REPORT GE Kartela TECHNIQUE: Two views of the right foot a nd two views of left foot HISTORY: Rule out osteomyelitis. COMPARISON: None. IMPRESSION: Right foot: Limited views. No acute displaced fracture or dislocati on. Mild scattered joint space narrowing. 0.8 cm linear metallic density in the pl aretha soft tissues at the level of the distal first metatarsal. Vascular calcifications. Left foot: Bony demineralization. Status post amputation of the first phal anges. Irregular appearance of the distal first metatarsal, with dis tinct cortex, likely postsurgical change. Mild scattered joint space narrowing. Multiple soft tissue irregularities at t he lateral foot at the level of the proximal and distal fifth metatar manisha. Indistinct cortex at the distal fifth metatarsal is suspicious fo r osteomyelitis. Consider MRI if clinically indicated to confirm osteo myelitis. Soft tissue swelling at the forefoot. Va scular calcifications. Signed: Luis Alberto Ball MD Report Verified Date/Time:12/20/2019 15:15:25 Reading Location: [facility] Radiology Readin g Room Procedure Note Interface, External Ris In - 12/20/2019 3:17 PM CDT FINAL REPORT TECHNIQUE: Two views of the right foot a nd two views of left foot HISTORY: Rule out osteomyelitis. COMPARISON: None. IMPRESSION: Right foot: Limited views. No acute displaced fracture or dislocati on. Mild scattered joint space narrowing. 0.8 cm linear metallic density in the pl aretha soft tissues at the level of the distal first metatarsal. Vascular calcifications. Left foot: Bony demineralization. Status post amputation of the first phal anges. Irregular appearance of the distal first metatarsal, with dis tinct cortex, likely postsurgical change. Mild scattered joint space narrowing. Multiple soft tissue irregularities at t he lateral foot at the level of the proximal and distal fifth metatar manisha. Indistinct cortex at the distal fifth metatarsal is suspicious fo r osteomyelitis. Consider MRI if clinically indicated to confirm osteo myelitis. Soft tissue swelling at the forefoot. Va scular calcifications. Signed: Luis Alberto Ball MD Report Verified Date/Time: 12/20/2019 1 5:15:25 Reading Location: [facility] Radiology Readin g Room Performing Organization Address City/[facility] Phone Number GE RIS Occult blood, stool (12/20/2019 6:19 AM CDT) Occult blood Negative Negative [facility] Specimen Stool Performing Organization Address [facility] Phone Number [facility] [place], [place] [address] Peripheral Blood Smear - Path Review (12/20/2019 5:06 AM CDT) RBC Morphology Target Cells [facility] Basophilic Stippling Nucleated Red Blood Cells Pathologist Review Normochromic normocytic anemia [facility] with a few target cells, nucleated RBCs and basophilic stippling. No increase in schistocytes. WBCs normal in number and morphology. Thrombocytopenia with normal platelet morphology. Pathologist: Jovita Griffith M.D. (electronic [facility] signature) Specimen Blood Performing Organization Address [facility] Phone Number [facility] [address] [place] [phone] Vitamin B12 and Folate (12/20/2019 5:06 AM CDT) Vitamin B12 1,431 (H) 211 - 911 pg/mL [facility] Folate 17.00 >=5.4 ng/mL [facility] Specimen Blood Narrative Performed At Metal Cnc Operator ID - ADMIN [facility] Performing Organization Address [facility] Phone Number [facility] [address] [place] [phone] TSH/Free T4 If Indicated (12/20/2019 5:06 AM CDT) TSH 21.210 (H) 0.350 - 5.500 uIU/mL [facility] Specimen Blood Narrative Performed At Metal Cnc Operator ID - ADMIN [facility] Performing Organization Address [facility]/Zipcode Phone Number [facility] [address] [place], [place] [address] PT/aPTT (12/20/2019 5:06 AM CDT) Protime 13.5 (H) 9.3 - 12.0 sec [facility] INR 1.25 <=5.90 [facility] PTT 38.2 (H) 23.0 - 35.0 sec [facility] Specimen Blood Narrative Performed At RECOMMENDED COUMADIN/WARFARIN INR THERAP Y RANGES [facility] STANDARD DOSE: 2.0 - 3.0 Includes: PROPHYLAXIS for venous thrombosis, systemic embolization; TREATMENT for venou s thrombosis and/or pulmonary embolus. HIGH RISK: Target INR is 2.5-3.5 for patients with mec hanical heart valves. Final Information (Auto Output) Final Information (Auto Output) Final Information (Auto Output) Performing Organization Address [facility] Phone Number [facility] [address] [place], [place] [address] Iron, TIBC, % sat. (without ferritin) (12/20/2019 5:06 AM CDT) Iron 92.0 45.0 - 170.0 ug/dL [facility] TIBC 151 (L) 250 - 550 ug/dL [facility] Iron % Saturation 61 (H) 20 - 55 % [facility] Specimen Blood Narrative Performed At [employer] C[employer] Operator ID - ADMIN [facility] Performing Organization Address City/[facility] Phone Number [facility] [address] [place], [place] [address] ROGER Titer & Pattern (12/20/2019 5:06 AM CDT) [facility]ER Titer 1:40 [facility] ROGER Pattern Speckled [facility] Specimen Blood Performing Organization Address City/[facility]/Zipcode Phone Number [facility] [address] [place] [address] CENTER [place] / lambda light chains, serum (12/20/2019 5:06 AM CDT) [place] Lt Chain,Free 474.4 (H) 3.3 - 19.4 mg/L [facility] Lambda Lt 225.6 (H) 5.7 - 26.3 mg/L [facility] Chain,Free [facility] [place]/Lambda,Free 2.10 (H) 0.26 - 1.65 [facility] Comment: INC[facility]PORATED Free kappa/lambda ratio in serum of normal indiv iduals is 0.26-1.65. Excess production of free kappa or lambda chains can al ter this ratio. Monoclonal free light chains are found in serum of patients with multiple myeloma, Waldenstrom's macroglobulinemia, mu-heavy chain disease, primary amyloidosis, light chain deposition disease, monoclonal gammo larisa of undetermined significance, and lymphoproliferative disorders. Measurement of free light chain concentration in serum is useful for diagn osis, prognosis, monitoring disease activity and following response to thera py of these disorders. Specimen Blood Narrative Performed At Performing Lab [facility] EZ [facility] [address] [address] [place] [address] Jaguar Stein MD, PhD, CORI Performing Organization Address City/[facility] Phone Number [facility] [place] [phone] [facility]PORATED [address] [facility] Fibrinogen (12/20/2019 5:06 AM CDT) Fibrinogen 340 200 - 400 mg/dL [facility] [employer] Specimen Blood Narrative Performed At Final Information (Auto Output) [facility] Performing Organization Address [facility] Number [facility] [address] [place] [address] D-dimer (12/20/2019 5:06 AM CDT) D-Dimer, Quant 1.09 (H) <0.50 mg/L [facility] Specimen Blood Narrative Performed At REGARDING D-DIMER RESULTS: The 98% NPV (Negative Predi ctive [facility] Value) for DVT/PE exclusion is 0.50 mg/L FEU as sugges merna by the button sewer hand and as approved by the FDA. Final Information (Auto Output) Performing Organization Address [facility] Phone Number [facility] [address] [facility] [place], [place] [address] Reticulocyte count (12/20/2019 5:06 AM CDT) % Retic 5.9 (H) 0.4 - 2.9 % Safe N Clear Specimen Blood Performing Organization Address [facility] Phone Number [facility] [address] [place], [place] [address] Anti-Nuclear Antibody (ROGER) (12/20/2019 5:06 AM CDT) ROGER Positive (A) Negative [facility] Specimen Blood Narrative Performed At Test performed by IFA method. [facility] Performing Organization Address City/State/Zipcode Phone Number [facility] [address] [place] [address] CENTER T4, free (12/20/2019 5:06 AM CDT) Free T4 0.52 (L) 0.90 - 1.80 ng/dL [facility] Specimen Blood Narrative Performed At [employer] Operator ID - ADMIN [facility] Performing Organization Address City/State/Zipcode Phone Number [facility] [address] [place], [place] [address] Protein electrophoresis, serum (12/20/2019 5:06 AM CDT) Albumin Fraction 2.4 (L) 3.5 - 5.5 g/dL [facility] Alpha 1 Fraction 0.4 0.2 - 0.4 g/dL [facility] Alpha 2 Fraction 0.4 (L) 0.5 - 0.9 g/dL [facility] Beta Fraction 0.8 0.6 - 1.1 g/dL [facility] Gamma Globulin Fraction 2.3 (H) 0.7 - 1.7 g/dL [facility] Interpretation Decreased albumin, [facility] suggestive of renal [facility] damage. Polyclonal elevation of gamma fraction, suggesting chronic inflammatory response. No monoclonal bands detected. Pathologist: Rocio Galindo MD [facility] (electronic signature) [facility] CENTER Protein, Total 6.3 6.0 - 8.3 gm/dL [facility]ICAL [facility] ER Specimen Blood Narrative Performed At [employer] Operator ID - LEONIE Jay [facility] ICAL CENTER Performing Organization Address City/State/Zipcode Phone Number [facility] [address] [place] [address] CENTER Haptoglobin (12/20/2019 5:06 AM CDT) Haptoglobin <8 (L) 14 - 258 mg/dL [facility] Specimen Blood Narrative Performed At [employer] Operator ID - LEONIE Jay [facility]ENTER Performing Organization Address City/State/Zipcode Phone Number [facility] [address] [place] [address] CENTER Ferritin (12/20/2019 5:06 AM CDT) Ferritin 595.00 (H) 10.00 - 291.00 ng/mL [facility] Specimen Blood Narrative Performed At [employer] C[employer] Operator ID - ADMIN [facility] Performing Organization Address City/State/Zipcode Phone Number [facility] [address] [place], [place] [address] Lactate dehydrogenase (LDH) (12/19/2019 5:35 AM CDT) LDH 178 107 - 206 U/L [facility] Specimen Blood Narrative Performed At [employer] C[employer] Operator ID - ADMIN [facility] Performing Organization Address City/[facility]/Zipcode Phone Number [facility] [address] [place], [place] [address] Basic Metabolic Panel (12/19/2019 5:35 AM CDT)Only the most recent of2 results within the time period is included. Sodium 138 135 - 148 meq/L [facility] Potassium 3.9 3.6 - 5.5 meq/L [facility] Chloride 99 98 - 106 meq/L [facility] CO2 30 (H) 20 - 29 meq/L [facility] BUN 47 (H) 10 - 26 mg/dL [facility] Creatinine 3.04 (H) 0.50 - 1.20 mg/dL [facility] Glucose 82 70 - 110 mg/dL [facility] Calcium 7.9 (L) 8.5 - 10.5 mg/dL [facility] EGFR 15Comment: ESTIMATED GFR IS NOT mL/min/1.73 s q m [facility] ACCURATE CREATININE CLEARANCE IN PREDICTING GLOMERULAR FILTRATION RATE. ESTIMATED GFR IS NOT APPLICABLE FOR DIALYSIS PATIENTS. Specimen Blood Narrative Performed At [employer] Operator ID - ADMIN [facility] Performing Organization Address City/State/Zipcode Phone Number [facility] [address] [place], [place] [address] Hepatitis C antibody (12/16/2019 4:02 PM CDT) Hepatitis C Ab Nonreactive Nonreactive [facility] Specimen Blood Narrative Performed At Metal C[employer] Operator ID - [facility] [place] Performing Organization Address City/State/Zipcode Phone Number [address] [phone] [place] Hepatitis B core antibody, total (12/16/2019 4:02 PM CDT) Hep B Core Total Ab Nonreactive Nonreactive [facility] Specimen Blood Narrative Performed At Metal Cnc Operator ID - [facility] [place] Performing Organization Address City/[facility]/Zipcode Phone Number [address] [phone] [place] Hepatitis B surface antibody (12/16/2019 4:02 PM CDT) Hep B S Ab <8.0 <8.0 mIU/mL [facility] Specimen Blood Narrative Performed At Metal Cnc Operator ID - [facility] [place] Performing Organization Address City/State/Zipcode Phone Number [address] [phone] [place] Hepatitis B surface antigen (12/16/2019 4:02 PM CDT) HBsAg Screen Nonreactive Nonreactive [facility] Specimen Blood Narrative Performed At Metal Cnc Operator ID - [facility]MIN [facility] Performing Organization Address City/State/Zipcode Phone Number [facility] [address], [place] [phone] IR Tunneled Catheter Insertion (12/16/2019 2:26 PM CDT) Specimen Narrative Performed At FINAL REPORT [facility] Tunneled dialysis catheter insertion. History: Renal failure. Modality: Sonography and fluoroscopy. Sedation: Moderate sedation was administ ered. 1 mg of Versed and50 mcg of fentanyl IV was used for moderate sedation monitored under my direction. Total intra-service time of sedation was 45minutes. The patient's vital signs were monitored thr oughout the procedure and recorded in the patient's medical record by the nurse. Water Pollution Control Technician:Arlin Flores M.D. Surface Grinder:none. Approach: Right internal jugular vein Estimated blood loss:< 5 cc. Specimen: None. Fluoroscopy Time: 1 min 14 sec min. Dose (Ka,r): 14 mGy. Technique: Informed written consent was obtained.Discussion of risks, benefits, and alternatives were m nithya with the patient. The patient expressed understanding and agre ed to proceed.All elements maximal sterile barrier technique was ut ilized for this procedure, including utilization of sterile scrub s olution for skin prep, a large sterile sheet to cover the areas o f the patient that were not prepped, and hand hygiene, mask, head co vering, and sterile gown for performing radiologist and scrub technol ogist. The skin was anesthetized with 2% lidoca ine.Ultrasound evaluation showed a patent and compressible left in ternal jugular vein, which was punctured under direct real-time ult rasound guidance with a micropuncture needle.An ultrasound i mage was saved to PACS. A 0.018 inch wire was placed through the needle into the right atrium. A 4 Moldovan micropuncture sheath was placed and a 0.035 wire was advanced into the IVC.A subcutan eous tunnel was created in the left anterior chest wall by blunt dissec tion.A 23 cm tip to cuff 15.5 Moldovan Duraflow 2 catheter was brou ght through the tunnel. The vessel tract was serially dilated. A pee l-away sheath was placed in the left IJ vein and the catheter was ad vanced through the sheath, with its distal tip terminating in the s uperiorright atrium.The peel-away sheath was removed. The ports were flushed and aspirated easily following placement.The jaya ter was sutured to the skin to secure its placement.The small jugul ar incision site demonstrated prolonged bleeding and pressure was held for approximately 10 minutes with satisfactory hemostasis. Sutures an d Dermabond was placed. A resorbable purse-string suture was place d at the catheter exit site. Vital signs were monitored throughout e procedure by a nurse, and remained stable.The patient tolerate d the procedure well and left the department in the same condition. Results:Spot radiograph of the chest demonstrates the new dialysis catheter to lie in the expected position with its tip overlying the superior right atrium. Impression: 1. Successful, uncomplicated placement o f a left internal jugular tunneled dialysis catheter using sonogra phic and fluoroscopic guidance and conscious sedation. Signed: Arlin Flores MD Report Verified Date/Time:12/16/2019 15:06:45 Reading Location: [facility] Radiology [facility] Room Procedure Note Interface, External Ris In - 12/16/2019 3:08 PM CDT FINAL REPORT Tunneled dialysis catheter insertion. History: Renal failure. Modality: Sonography and fluoroscopy. Sedation: Moderate sedation was administ ered. 1 mg of Versed and 50 mcg of fentanyl IV was used for moderate sedation monitored under my direction. Total intra-service time of s edation was 45 minutes. The patient's vital signs were monitored thr oughout the procedure and recorded in the patient's medical record by the nurse. Water Pollution Control Technician: Arlin Flores M.D. Surface Grinder: none. Approach: Right internal jugular vein Estimated blood loss: < 5 cc. Specimen: None. Fluoroscopy Time: 1 min 14 sec min. Dose (Ka,r): 14 mGy. Technique: Informed written consent was obtained. Discussion of risks, benefits, and alternatives were m nithya with the patient. The patient expressed understanding and agre ed to proceed. All elements maximal sterile barrier technique was ut ilized for this procedure, including utilization of sterile scrub s olution for skin prep, a large sterile sheet to cover the areas o f the patient that were not prepped, and hand hygiene, mask, head co vering, and sterile gown for performing radiologist and scrub technol ogist. The skin was anesthetized with 2% lidoca ine.Ultrasound evaluation showed a patent and compressible left in ternal jugular vein, which was punctured under direct real-time ult rasound guidance with a micropuncture needle. An ultrasound tyler ge was saved to PACS. A 0.018 inch wire was placed through the needle into the right atrium. A 4 Moldovan micropuncture sheath was placed and a 0.035 wire was advanced into the IVC. A subcutaneo us tunnel was created in the left anterior chest wall by blunt dissec tion. A 23 cm tip to cuff 15.5 Moldovan Duraflow 2 catheter was brou ght through the tunnel. The vessel tract was serially dilated. A pee l-away sheath was placed in the left IJ vein and the catheter was ad vanced through the sheath, with its distal tip terminating in the s uperior right atrium. The peel-away sheath was removed. The ports were flushed and aspirated easily following placement. The cathete r was sutured to the skin to secure its placement. The small jugular incision site demonstrated prolonged bleeding and pressure was held for approximately 10 minutes with satisfactory hemostasis. Sutures an d Dermabond was placed. A resorbable purse-string suture was place d at the catheter exit site. Vital signs were monitored throughout th e procedure by a nurse, and remained stable. The patient tolerated the procedure well and left the department in the same condition. Results: Spot radiograph of the chest d emonstrates the new dialysis catheter to lie in the expected position with its tip overlying the superior right atrium. Impression: 1. Successful, uncomplicated placement o f a left internal jugular tunneled dialysis catheter using sonogra phic and fluoroscopic guidance and conscious sedation. Signed: Arlin Flores MD Report Verified Date/Time: 12/16/2019 1 5:06:45 Reading Location: [facility] Radiology Readin g Room Performing Organization Address City/State/Zipcode Phone Number [place] XR chest 1 view portable / bedside (12/16/2019 5:55 AM CDT) Specimen Narrative Performed At FINAL REPORT [employer] RIS TECHNIQUE: Frontal view of the chest. INDICATION: fall COMPARISON:09/02/2017 DISCUSSION: Limited evaluation due to portable techn ique. Lines and hardware: Left subclavian cent ral line is noted with tip projecting at the superior right atrium. Heart and mediastinum: Cardiomediastinal silhouette is mildly enlarged. Mild central vascular congesti on is noted. Trachea projects midline. Lungs and pleura: Moderate right pleural effusion is noted with right basilar opacity. Negative for pneumothor ax. Left lung is clear. Soft tissues and bones: No acute abnorma lity. Visualized ribs are grossly intact. Postsurgical changes are identified in the left upper quadrant. IMPRESSION: Right basilar opacification is concernin g for accommodation effusion/consolidation. Negative for pne umothorax. Signed: Arlin Flores MD Report Verified Date/Time:12/16/2019 09:20:06 Reading Location: [facility] Radiology Readin g Room Procedure Note Interface, External Ris In - 12/16/2019 9:22 AM CDT FINAL REPORT TECHNIQUE: Frontal view of the chest. INDICATION: fall COMPARISON:09/02/2017 DISCUSSION: Limited evaluation due to portable techn ique. Lines and hardware: Left subclavian cent ral line is noted with tip projecting at the superior right atrium. Heart and mediastinum: Cardiomediastinal silhouette is mildly enlarged. Mild central vascular congesti on is noted. Trachea projects midline. Lungs and pleura: Moderate right pleural effusion is noted with right basilar opacity. Negative for pneumothor ax. Left lung is clear. Soft tissues and bones: No acute abnorma lity. Visualized ribs are grossly intact. Postsurgical changes are identified in the left upper quadrant. IMPRESSION: Right basilar opacification is concernin g for accommodation effusion/consolidation. Negative for pne umothorax. Signed: Arlin Flores MD Report Verified Date/Time: 12/16/2019 0 9:20:06 Reading Location: [facility] Radiology Readin g Room Performing Organization Address City/State/Zipcode Phone Number [facility] Prothrombin time/INR (12/16/2019 4:08 AM CDT) Protime 14.1 (H) 9.3 - 12.0 sec [facility] INR 1.31 <=5.90 [facility] Specimen Blood Narrative Performed At RECOMMENDED COUMADIN/WARFARIN INR THERAP Y RANGES [facility] STANDARD DOSE: 2.0 - 3.0 Includes: PROPHYLAXIS for venous thrombosis, systemic embolization; TREATMENT for venou s thrombosis and/or pulmonary embolus. HIGH RISK: Target INR is 2.5-3.5 for patients with mec hanical heart valves. Final Information (Auto Output) Final Information (Auto Output) Performing Organization Address City/State/Zipcode Phone Number [facility] [address], [place] [phone] after 01/04/2019 Insurance Payer Benefit Plan / Group Subscriber ID Type Phone A ddress [place] MED[place]ID [place] xxxxxxxxx CDC REVIEW CDC REVIEW xxxxxxxx [address] [place], [place] [phone] Advance Directives For more information, please contact:[facility] [place], [place] [phone] Code Status Date Activated Date Inactivated Comments Full Code 12/30/2019 2:46 PM 01/01/2020 12:49 PM This code status was determined by: Child Full Code 12/16/2019 2:41 PM 12/30/2019 2:46 PM This code status was determined by: Patient Full Code 09/02/2017 8:59 PM 09/05/2017 8:42 PM This code status was determined by: Patient Full Code 08/05/2017 5:05 PM 08/09/2017 5:42 PM This code status was determined by: Patient Full Code 08/05/2017 6:40 AM 08/05/2017 5:05 PM This code status was determined by: Patient
--- OUTSIDE RECORDS SUMMARY | 2020-01-06 10:20 | XMS REPORT | Continuity of Care Document ---
:1955 [facility] t Address [address] [place] [address] Care Team Providers Name Role Phone JusticeLandy Primary Care Physician LISA MOHAMUD Attending Clinician Unavailable Cade PIERRE, Lisa Attending Clinician Urmila PIERRE, Cesia Attending Clinician Neeta THOMPSON, Maggy Attending Clinician Belkis PIERRE, Deepj Attending Clinician Monica VANEGAS Attending Clinician Unavailable PRABHJOT DREW Attending Clinician Unavailable OLAYINKA Attending Clinician Unavailable LISA VERDUZCO Attending Clinician Unavailable MAGGIE MCCONNELL Attending Clinician Unavailable Mary FIERRO Attending Clinician Unavailable LISA MOHAMUD Admitting Clinician Unavailable BERTA BANERJEE Admitting Clinician Unavailable LISA VERDUZCO Admitting Clinician Unavailable MAGGIE MCCONNELL Admitting Clinician Unavailable Mary FIERRO Admitting Clinician Unavailable Payers Payer Name Policy Type Policy Number Effective Date Expiration Source Date ALMANZA xxxxxxxxx [facility]ICAID [facility] REVIEWCDC [id number] [facility] REVIEWxxxxxxxxPO [facility] [id number] Center Problems Condition Condition Condition Status Onset Resolution Last Treating Co mments Source Name Details Category Date Date Treatment Clinician Date Kidney Kidney Disease Active [facility] disease disease 9-17 [facility] Medical 00 Center S/P S/P Disease Active Overview: [facility] femoral-po femoral-po 6-05 Right on [facility] - pliteal pliteal 00:00: 08/05/17 Medical bypass bypass 00 Center surgery surgery Hyperlipid Hyperlipid Disease Active [facility] emia emia 5-10 [facility] - 00:00: Medical 00 Center History of History of Disease Active [facility] IBS IBS 5-10 [facility] - 00:00: Medical [place] Leukocytos Leukocytos Disease Active [facility] is is 5-10 [facility] - 00:00: Medical 00 Center PVD PVD Disease Active [facility] (periphera (periphera 5-08 Janna kes - l vascular l vascular [...] Medical disease) disease) 00 SVG-PDA,r Matthew ter brandonus,OM3 on 05/20/17 Atheroscle Atheroscle Disease Active Overview : [facility] rosis of rosis of 2-19 RLE PVD [facility] - [place] 00:00: Medical artery of artery of 00 Cent er extremity extremity with with ulceration ulceration Acute CHF Acute CHF Disease Active [facility] -14 [facility] - 00:[facility]: Medical 00 Center COPD COPD Disease Active [facility] (chronic (chronic -14 [facility] - obstructiv obstructiv 00:00: La dical e e 00 Center pulmonary pulmonary disease) disease) Controlled Controlled Disease Active [facility] type 2 type 2 - [facility] - diabetes diabetes 00:00: Medica l mellitus mellitus 00 Center with with cell tender helper cell tender helper y y disorder, disorder, with with long-term long-term current current use of use of insulin insulin Smoker Smoker Disease Active [facility] 2-14 [facility] - 00:00: Medical 00 Center Frequent Frequent Disease Active [facility] PVCs PVCs -12 [facility] - 00:00: Medical 00 Center Essential Essential Problem Active [facility] (primary) (primary) Luke s - hypertensi hypertensi Me [facility] Depression Depression Problem Active [facility] , , [facility] - unspecifie unspecifie [facility] d d l depression depression Ou tpati type type ent Clinics History of History of Problem Active [facility] cancer cancer [facility] Primary Primary Problem Active [facility] insomnia insomnia [facility] Chronic Chronic Problem Active [facility] acquired acquired [facility] - lymphedema lymphedema Me moria l [facility] Chronic Chronic Diagnosis Active CHI [...] diastolic diastolic Luke s - congestive congestive [facility] heart heart l failure, failure, Outpat i NYHA class NYHA class en t 2 2 Clinics Chronic Chronic Problem Active [facility] obstructiv obstructiv Janna kes - e e Memoria pulmonary pulmonary l disease, disease, Outpat i unspecifie unspecifie en t d COPD d COPD Clinics 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[address] diabetes diabetes [facility] - mellitus mellitus Memori a with with l diabetic diabetic Outpat i chronic chronic ent kidney kidney Clinics disease disease Kidney Kidney Problem Active [facility] disease disease [facility] - Memoria l [facility] ent [facility] Allergies, Adverse Reactions, Alerts Allergy Allergy Status Severity Reaction(s) Onset Inactive Treating Comm ents Source Name Type Date Date Clinician Trazodon Drug Active Nausea And [facility] e Allergy Vomiting 212 [facility] - 00:00: Medical 00 Center Amoxicil Propensi Active Diarrhea [facility] kenzie-Pot ty to 04-21 [facility] - Clavulan adverse 00:00: Medical ate reaction 00 [place] Basil Propensi Active Nausea Only [facility] ty to 04-21 [facility] - adverse 00:00: Medical reaction 00 [place] Morphine Propensi Active Anaphylaxis [facility] ty to 04-21 [facility] - adverse 00:00: Medical reaction 00 [place] Nitrogly Propensi Active Nausea And [address] [facility] cerin ty to Vomiting 04-21 ONLY [facility] - adverse 00:00: Medical reaction 00 [place] Vancomyc Propensi Active Nausea And [address] in ty to Vomiting 04-21 [facility] - Analogue adverse 00:00: Medical s reaction 00 [place] Vancomyc Adverse Active vomiting [facility] in HCl Reaction [facility] - Memoria l [facility] Nitrogly Adverse Active vomiting [facility] cerin Reaction [facility] - Mem[facility] l [facility] Morphine Adverse Active headache, [facility] Sulfate Reaction breathing Luke s - Memoria l [facility] ent Clinics Clindamy Adverse Active vomiting [facility] riley HCl Reaction [facility] - Memoria l [facility] Family History Family Member Diagnosis Comments Start Date Stop Date Source Natural father COPD [facility] Natural father Cancer [facility] Natural father Hypertension [facility] Natural mother No Known Problem [facility] Natural sister Asthma [facility] Natural sister COPD [facility] Social History Social Habit Start Date Stop Date Quantity Comments Source Sex Assigned At [facility] Cigarettes smoked 2019-12-31 2019-12-31 [facility] - current (pack per 00:00:00 00:00:00 [facility] Center day) - Reported Cigarette 2019-12-31 2019-12-31 [facility] - pack-years 00:00:00 00:00:00 [facility] History of tobacco 2017-05-[address] kes - use 00:00:00 [facility] Smoking Status Start Date Stop Date Source Former smoker 2019-12-31 00:00:00 2019-12-31 00:00:00 [facility] Medications Ordered Filled Start Stop Current Ordering Indication Dosage Frequency Signature Comments Components Source Medication Medication Date Date Medication? Clinician (SIG) Name Name levoFLOXaci 2019-03 2020- Yes 250mg QD Take [address] n 01-09 tablet [facility]ukes - (LEVAQUIN) 00:00: 23:59 (250 mg Med ical 250 MG 00 :00 total) by Center tablet mouth daily for 10 days. fentaNYL 2020-0 Yes 1{patch Place [address] [facility] (DURAGESIC) 9-19 } patch onto Janna kes - 50 mcg/hr 00:00: the skin Medi marilin patch 00 every Center third day. ferrous 2020-0 Yes 325mg Take 325 [facility] sulfate 325 9-17 mg by [facility] - (65 FE) MG 11:24: mouth Medica l tablet 24 daily with Center breakfast. melatonin 2020-0 2020- No 10mg Take [address] 10 mg Tab -15 12-17 by mouth [facility] - 11:04: 00:00 every Medical 36 :00 night as Center needed. buPROPion 2020-0 Yes 150mg QD Take [address] (WELLBUTRIN 9-17 mg by [facility] - SR) 150 MG 11:04: mouth Medica l 12 hr 23 daily. Center tablet sertraline 2020-0 Yes 25mg QD Take [address] (ZOLOFT) 25 9- by mouth Luke s - MG tablet 11:04: daily. Medica l 23 Center NICOTINE 2019-0 2020- No Place onto [facility] (NICODERM 12-15 the skin. Luke s - CQ TD) 11:03: 00:00 Medical 44 :00 [place] aspirin 81 2020-0 2020- No 81mg QD Take [address] MG EC 12-15 by mouth [facility] - tablet 11:03: 00:00 daily. Medical 13 :00 Center folic acid 2019-0 Yes 1mg QD Take [address] (FOLVITE) 1 12-15 by mouth Luke s - MG tablet 10:59: daily. Medica l 40 Center isosorbide 2020-0 Yes 60mg QD Take [address] mononitrate -17 by mouth Luke s - (IMDUR) 60 10:59: daily. Medic al MG 24 hr 40 Center tablet levothyroxi 2019-0 Yes 112ug Take [address] ne 9-17 mcg by Lukes - (SYNTHROID, 10:59: mouth Medic al LEVOTHROID) 39 Every Center 112 MCG morning on tablet an empty stomach. isosorbide 2019-0 2020- No 30mg QD Take [address] mononitrate 12-15 by mouth Lay es - (IMDUR) 30 10:59: 00:00 daily. Medi marilin MG 24 hr 29 :00 Center tablet metOLazone 2019-0 Yes 5mg Q.5D Take [address] (ZAROXOLYN) -17 by mouth 2 Janna kes - 5 MG tablet 10:56: (two) Medic al 31 times Center daily. allopurinoL 2020-0 Yes 100mg Q.5D Take [address] (ZYLOPRIM) 9-17 mg by [facility]ukes - 100 MG 10:56: mouth 2 Medical tablet 31 (two) Center times daily. mupirocin 2020-0 Yes QD Apply [facility] (BACTROBAN) 9-17 topically Lay es - 2 % 10:56: daily. Medical ointment 30 Center collagenase 2020-0 Yes QD Apply [facility] t (SANTYL) 9-17 topically [facility] - 250 units/g 10:56: daily. Medi marilin ointment 30 Center bumetanide Yes 2mg [id number] Take [address] (BUMEX) 2 12-15 [id number] by mouth 3 [facility]ukes - MG tablet 10:56: 3D (three) Medic al 30 times Center daily. insulin Yes Inject [facility] regular 12-15 subcutaneo [facility]ukes - (HUMULIN 10:56: usly 4 Medical R,NOVOLIN 30 (four) Center R) 100 times unit/mL daily injection before meals and nightly Use as directed . acetaminoph Yes 1{tbl} Take [address] en-codeine 6-08 tablet by Luke s - (TYLENOL 00:00: mouth Medical #3) 300-30 00 every 6 Center mg per (six) tablet hours as needed. Max Daily Amount: 4 tablets gabapentin Yes Take [address] (NEURONTIN) 6-05 mg in AM Luke s - 100 MG 00:00: and Medical capsule 00 afternoon Center and 300 mg at night. ferrous 2019- No 325mg Q.5D Take [address] sulfate 325 08-09 tablet [facility]ukes - (65 FE) MG 00:00: 00:00 (325 mg Med ical tablet 00 :00 total) by Center mouth 2 (two) times daily. carvedilol Yes 12.5mg Q.5D Take [address] (COREG) -09 tablet Lukes - 12.5 MG 00:00: (12.5 mg Medica l tablet 00 total) by Center mouth 2 (two) times daily. atorvastati Yes 40mg QD Take [address] n (LIPITOR) 07-07 tablet (40 Janna kes - 40 MG 00:00: mg total) Medical tablet 00 by mouth Center daily. NIFEdipine 2019- No 60mg QD Take [address] (ADALAT CC) 07-07 tablet (60 L ukes - 60 MG 24 hr 00:00: 00:00 mg total) Medical tablet 00 :00 by mouth Center daily Blood pressure. hydrALAZINE 2019- No 50mg Take [address] [facility] [facility] (APRESOLINE 07-07 tablet (50 L ukes - ) 50 MG 00:00: 00:00 mg total) Medi marilin tablet 00 :00 by mouth Center every 8 (eight) hours Blood pressure. clopidogrel 2019- No 75mg QD Take [address] (PLAVIX) 75 07-07 tablet (75 L ukes - mg tablet 00:00: 00:00 mg total) Me dical 00 :00 by mouth Center daily. fluticasone Yes 1{puff} Q.5D Inhale [address] (FLOVENT 3-04 puff by [facility]ukes - HFA) 110 00:00: mouth via Medi marilin mcg/actuati [address] on inhaler (two) times daily. albuterol-i 2019- No 2{puff} Inhale [address] pratropium 06-01 puffs by Luke s - (COMBIVENT 00:00: 00:00 mouth via M edical RESPIMAT) 00 :00 inhaler Center 20-100 every 6 mcg/actuati (six) on Mist hours. inhaler insulin 2019- No 5U QD Inject [facility] detemir 06-01 0.05 mLs [facility]ukes - (LEVEMIR 00:00: 00:00 (5 Units Medi marilin FLEXPEN) 00 :00 total) Center 100 unit/mL subcutaneo (3 mL) InPn usly every injection morning. pen needle, 2019- No Use as [facility] diabetic 29 06-01 directed Lay es - gauge Ndle 00:00: 00:00 to inject M edical 00 :00 long and Center short acting insulin.. Trazodone Trazodone Yes Franki TAKE [address] HCl HCl Jas TABLET BY Lukes - MOUTH Memoria EVERYDAY l AT BEDTIME [facility] Isosorbide Isosorbide Yes Franki TAKE [address] Mononitrate Mononitrate Jas TABLET BY Lukes - ER ER MOUTH Memoria EVERY DAY l [facility] NIFEdipine NIFEdipine Yes Franki TAKE [address] [facility] ER ER Jas TABLET BY [facility]ukes - MOUTH Memoria EVERY DAY l [facility] BuPROPion BuPROPion Yes Franki TAKE [address] HCl HCl Jas TABLET BY [facility]ukes - MOUTH Memoria EVERY DAY l [facility] Acetaminoph Acetaminoph Yes Franki (Schedule [facility] en-Codeine en-Codeine Jas III Drug) Jannabernardino - #3 #3 TAKE 1 Memoria TABLET [...] l TIMES A Outpati DAY ent Clinics Vital Signs Vital Name Observation Time Observation Value Comments Source Heart rate 2020-01-01 08:41:00 60 /min [facility] Respiratory rate 2020-01-01 08:41:00 18 /min [facility] Oxygen saturation in 2020-01-01 08:41:00 100 /min [facility] - Arterial blood by Medical Ce nter Pulse oximetry Systolic blood 2020-01-01 08:32:00 162 mm[Hg] [facility] Diastolic blood 2020-01-01 08:32:00 73 mm[Hg] [facility] Body temperature 2020-01-01 07:41:00 36.56 Deanne [facility] Body weight Measured 2019-12-30 04:28:00 78.2 kg [facility] BMI 2019-12-30 04:28:00 27.00 kg/m2 [facility] Body height 2019-12-25 21:05:00 170.2 cm [facility] Procedures Procedure Date / Time Performed Performing Clinician [facility] e REPORT OF PROCEDURE - 2020-01-05 08:40:02 Provider, Default [facility] ENDOSCOPY SCAN [facility] RHYTHM STRIP - SCAN 2020-01-05 08:31:43 Provider, Default [facility] RHYTHM STRIP - SCAN 2020-01-05 08:31:42 Provider, Default [facility] RHYTHM STRIP - SCAN 2020-01-05 08:31:40 Provider, [facility] CARDIAC CATH REPORT - 2020-01-05 08:31:15 Provider, [facility] CARDIAC CATH REPORT - 2020-01-05 08:31:13 Provider, Default [facility] POCT-GLUCOSE METER 2020-01-01 06:33:00 Pat Mohamud [facility] COMPREHENSIVE METABOLIC 2020-01-01 05:37:00 CheshireLily [facility] CBC W/PLT COUNT & AUTO 2020-01-01 05:37:00 CheshireLily [facility] POCT-GLUCOSE METER 2019-12-31 20:50:00 Pat Mohamud [facility] POCT-GLUCOSE METER 2019-12-31 18:00:00 [facility] 2019-12-31 11:42:00 [facility] POCT-GLUCOSE METER 2019-12-31 06:29:00 Cade [facility] COMPREHENSIVE METABOLIC 2019-12-31 06:05:00 CheshireLily [facility] MAGNESIUM 2019-12-31 06:05:00 [facility] W/PLT COUNT & AUTO 2019-12-31 06:05:00 CheshireLily [facility] POCT-GLUCOSE METER 2019-12-30 20:13:00 Pat Mohamud [facility] POCT-GLUCOSE METER 2019-12-30 16:26:00 Cade [facility] SURGICALLY OBTAINED 2019-12-30 13:59:46 Neeta [facility] - CULTURE + GRAM STAIN Medical [facility] ter ANAEROBIC CULTURE 2019-12-30 13:59:46 Neeta [facility] SURGICALLY OBTAINED 2019-12-30 13:54:56 [facility] + GRAM STAIN [facility] ter ANAEROBIC CULTURE 2019-12-30 13:54:56 Neeta [facility] TISSUE EXAM 2019-12-30 13:38:00 Neeta [facility] I&D,BONE FOOT 2019-12-30 12:30:00 Neeta [facility] POCT-GLUCOSE METER 2019-12-30 11:39:00 [facility] POCT-GLUCOSE METER 2019-12-30 05:39:00 Cade [facility] SARS-COV2/RT-PCR ([facility] & 2019-12-30 05:11:00 [facility] COMPREHENSIVE METABOLIC 2019-12-30 05:09:00 [facility] W/[facility]T COUNT & AUTO 2019-12-30 05:09:00 Lily Echavarria [facility] POCT-GLUCOSE METER 2019-12-29 21:09:00 Pat [facility]amud [facility] POCT-GLUCOSE METER 2019-12-29 11:10:00 Pat Mohamud [facility] HEMODIALYSIS INPATIENT 2019-12-29 08:12:17 Brandie hKan [facility] POCT-GLUCOSE METER 2019-12-29 06:10:00 Pat Mohamud [facility] COMPREHENSIVE METABOLIC 2019-12-29 05:50:00 CheshireLily [facility] CBC W/PLT COUNT & AUTO 2019-12-29 05:50:00 CheshireLily [facility] POCT-GLUCOSE METER 2019-12-28 20:37:00 Pat Mohamud [facility] POCT-GLUCOSE METER 2019-12-28 17:38:00 Pat [facility]amud [facility] POCT-GLUCOSE METER 2019-12-28 13:12:00 Pat Mohamud [facility] ABD AO & LOWER EXT 2019-12-28 12:00:00 Sakina Tamayo [facility] ANGIOS/ [facility] POCT-GLUCOSE METER 2019-12-28 05:43:00 [facility] COMPREHENSIVE METABOLIC 2019-12-28 04:41:00 CheshireLily [facility] CBC W/PLT COUNT & AUTO 2019-12-28 04:41:00 CheshireLily [facility] POCT-GLUCOSE METER 2019-12-27 20:32:00 Pat [facility]amud [facility] MR LOWER EXTREMITY 2019-12-27 16:30:00 CheshireLily [facility] - WITHOUT IV CONTRAST [facility] POCT-GLUCOSE METER 2019-12-27 14:06:00 Pat Mohamud [facility] WOUND CULTURE + GRAM 2019-12-27 12:02:00 Annia Delgado CH, I [facility] POCT-GLUCOSE METER 2019-12-27 06:44:00 Evens Mohamudruel [facility] POCT-GLUCOSE METER 2019-12-27 05:49:00 Pat Mohamud [facility] COMPREHENSIVE METABOLIC 2019-12-27 05:05:00 [facility] W/PLT COUNT & AUTO 2019-12-27 05:05:00 [facility] HEMODIALYSIS INPATIENT 2019-12-27 00:31:18 Brandie Khan [facility] POCT-GLUCOSE METER 2019-12-26 20:51:00 Cade [facility] TRANSFUSION SERVICE 2019-12-26 18:02:44 ProviderRocco [facility] REPORT - SCAN Scanning [facility] POCT-GLUCOSE METER 2019-12-26 16:42:00 Cade [facility] CT/CTA AAA AND RUNOFF 2019-12-26 15:27:00 Sakina Tamayo [facility] POCT-GLUCOSE METER 2019-12-26 11:59:00 Cade [facility] POCT-GLUCOSE METER 2019-12-26 06:09:00 [facility] COMPREHENSIVE METABOLIC 2019-12-26 04:36:00 Cheshire [facility] CBC W/PLT COUNT & AUTO 2019-12-26 04:36:00 [facility] PREPARE LEUKO-REDUCED RBC 2019-12-25 23:54:00 Brandie Khan [facility] POCT-GLUCOSE METER 2019-12-25 20:51:00 Cade [facility] TRANSFUSION SERVICE 2019-12-25 18:04:44 Provider [facility] REPORT - SCAN Scanning [facility] POCT-GLUCOSE METER 2019-12-25 17:01:00 Pat Moh[facility]ud [facility] POCT-GLUCOSE METER 2019-12-25 11:25:00 [facility] COMPREHENSIVE METABOLIC 2019-12-25 05:59:00 Lily Echavarria [facility] CBC W/PLT COUNT & AUTO 2019-12-25 05:59:00 Lily Echavarria [facility] DIFFERENTIAL [facility] POCT-GLUCOSE METER 2019-12-25 05:58:00 [facility] TRANSFUSE LEUKO-REDUCED 2019-12-24 19:06:17 Brandie Khan [facility] RED BLOOD CELLS [facility] POCT-GLUCOSE METER 2019-12-24 16:15:00 Pat Mohamud [facility] ABORH, MANUAL 2019-12-24 08:25:00 Jovita Griffith [facility] POCT-GLUCOSE METER 2019-12-24 06:11:00 [facility] TYPE AND SCREEN, 2019-12-24 06:08:00 Brandie Khan [facility] es - AUTOMATED [facility] METABOLIC 2019-12-24 05:51:00 Lily Echavarria [facility] CBC W/PLT COUNT & AUTO 2019-12-24 05:51:00 Lily Echavarria [facility] DIFFERENTIAL [facility] POCT-GLUCOSE METER 2019-12-23 21:23:00 Pat Mohamud [facility] POCT-GLUCOSE METER 2019-12-23 16:42:00 Pat Mohamud [facility] MR LOWER EXTREMITY JOINT 2019-12-23 15:34:00 Tala Santacruz [facility] - ONLY WITHOUT IV CONTRAST [facility] LEFT MR BRAIN WITHOUT IV 2019-12-23 15:34:[address] [facility] - CONTRAST [facility] POCT-GLUCOSE METER 2019-12-23 11:16:00 Pat Mohamud [facility] ARTERIAL DOPPLER LEGS 2019-12-23 09:38:00 Tala Santacruz [facility] AMMONIA 2019-12-23 04:05:00 Mariela Carrasco [facility] COMPREHENSIVE METABOLIC 2019-12-23 04:00:00 JerichoLily [facility] CBC W/PLT COUNT & AUTO 2019-12-23 04:00:00 Cheshire [facility] SARS-COV2/RT-PCR ([facility] & 2019-12-23 03:59:00 Pat Mohamud [facility] POCT-GLUCOSE METER 2019-12-22 20:34:00 Pat [facility]ud [facility] POCT-GLUCOSE METER 2019-12-22 16:43:00 Pat Mohamud [facility] POCT-GLUCOSE METER 2019-12-22 11:31:00 Pat Mohamud [facility] POCT-GLUCOSE METER 2019-12-22 06:30:00 Pat Mohamud [facility] COMPREHENSIVE METABOLIC 2019-12-22 05:14:00 [facility] CBC W/PLT COUNT & AUTO 2019-12-22 05:14:00 CheshireLily [facility] POCT-GLUCOSE METER 2019-12-21 20:26:00 [facility] POCT-GLUCOSE METER 2019-12-21 17:22:00 [facility]amud [facility] POCT-GLUCOSE METER 2019-12-21 12:35:00 Pat [facility]amud [facility] POCT-GLUCOSE METER 2019-12-21 07:20:00 Cade [facility] POCT-GLUCOSE METER 2019-12-21 05:52:00 Cade [facility] C-REACTIVE PROTEIN 2019-12-21 04:39:00 Annia Delgado [facility] COMPREHENSIVE METABOLIC 2019-12-21 04:39:00 [facility] CBC W/PLT COUNT & AUTO 2019-12-21 04:39:00 Cheshire [facility] US ABDOMEN COMPLETE 2019-12-20 21:17:00 [facility] PO[facility]-GLUCOSE METER 2019-12-20 20:23:00 Cade [facility] POCT-GLUCOSE METER 2019-12-20 17:31:[address] [facility] CT BRAIN WITHOUT IV 2019-12-20 16:04:00 [facility] AMMONIA 2019-12-20 14:41:00 [facility] BLOOD GAS, ARTERIAL 2019-12-20 14:28:00 [facility] XR FOOT 2 VIEWS RIGHT 2019-12-20 11:55:00 Annia Delgado [facility] POCT-GLUCOSE METER 2019-12-20 11:28:00 [facility] POCT-GLUCOSE METER 2019-12-20 06:20:00 aCde [facility] OCCULT BLOOD, STOOL 2019-12-20 06:19:00 [facility] PT/APTT 2019-12-20 05:06:00 [facility] FIBRINOGEN 2019-12-20 05:06:00 [facility] D-DIMER 2019-12-20 05:06:00 [facility] IRON, TIBC, % SAT. 2019-12-20 05:06:00 [facility] (WITHOUT FERRITIN) Medical Cente r VITAMIN B12 AND FOLATE 2019-12-20 05:06:00 [facility] RETICULOCYTE COUNT 2019-12-20 05:06:00 Sakina Chen [facility] HAPTOGLOBIN 2019-12-20 05:06:00 Sakina Chen [facility] TSH/FREE T4 IF INDICATED 2019-12-20 05:06:00 Sakina Chenba l [facility] FERRITIN 2019-12-20 05:06:00 Sakina Chen [facility] ANTI-NUCLEAR ANTIBODY 2019-12-20 05:06:00 Sakina Chen [facility] ([facility]OG[facility]) [facility] KAPPA / LAMBDA LIGHT 2019-12-20 05:06:00 Sakina Chen [facility] PROTEIN ELECTROPHORESIS, 2019-12-20 05:06:00 Sakina Chenba l [facility] PERIPHERAL BLOOD SMEAR - 2019-12-20 05:06:00 Sakina Chenba l [facility] - PATHOLOGIST REVIEW Medical [facility] COMPREHENSIVE METABOLIC 2019-12-20 05:06:00 Marcial Chapa [facility] T4, FREE 2019-12-20 05:06:00 Sakina Chen [facility] ROGER TITER AND PATTERN 2019-12-20 05:06:00 Sakina Chen [facility] CBC W/PLT COUNT & AUTO 2019-12-20 05:06:00 Marcial Chapa [facility] POCT-GLUCOSE METER 2019-12-19 20:35:00 Pat Mohamud [facility] POCT-GLUCOSE METER 2019-12-19 16:06:00 Pat Mohamud [facility] HEMODIALYSIS INPATIENT 2019-12-19 16:02:09 Sharri Fernando [facility] BASIC METABOLIC PANEL (7) 2019-12-19 05:35:00 Marcial Chapa [facility] LACTATE DEHYDROGENASE 2019-12-19 05:35:00 Sakina Chen [facility] CBC W/PLT COUNT & AUTO 2019-12-19 05:35:00 Marcial Chapa [facility] POCT-GLUCOSE METER 2019-12-19 05:24:00 [facility] 2019-12-18 21:35:00 [facility] POCT-GLUCOSE METER 2019-12-18 16:05:00 Cade Pat [facility] POCT-GLUCOSE METER 2019-12-18 07:45:00 [facility] POCT-GLUCOSE METER 2019-12-18 06:14:00 [facility] POCT-GLUCOSE METER 2019-12-17 21:44:00 Cade [facility] POCT-GLUCOSE METER 2019-12-17 17:52:00 Evens Mohamudruel [facility] POCT-GLUCOSE METER 2019-12-17 12:22:00 Evens Mohamudruel [facility] HEMODIALYSIS INPATIENT 2019-12-17 10:33:[facility] 2019-12-17 06:18:00 Evens Mohamudruel [facility] CBC W/PLT COUNT & AUTO 2019-12-17 04:14:00 Marcial Chapa [facility] COMPREHENSIVE METABOLIC 2019-12-17 04:13:00 Marcial Chapa [facility] POCT-GLUCOSE METER 2019-12-16 20:55:00 Evens Mohamudruel [facility] POCT-GLUCOSE METER 2019-12-16 18:24:00 Cade [facility] HEPATITIS B SURFACE 2019-12-16 16:02:00 Rianulacey [facility] ANTIBODY [facility] HEPATITIS B SURFACE 2019-12-16 16:02:00 Bill [facility] ANTIGEN [facility] HEPATITIS C ANTIBODY 2019-12-16 16:02:00 [facility] 2019-12-16 16:02[facility] TOTAL [facility] POCT-GLUCOSE METER 2019-12-16 14:47:00 Pat Mohamud [facility] IR TUNNELED DIALYSIS 2019-12-16 14:26:00 Sharri Fernando [facility] CATHETER [facility] HEMODIALYSIS INPATIENT 2019-12-16 12:37:39 [facility] POCT-GLUCOSE METER 2019-12-16 11:01:00 Pat Mohamud [facility] XR CHEST 1 VIEW 2019-12-16 05:55:00 Marcial Chapa [facility] PORTABLE/BEDSIDE [facility] POCT-GLUCOSE METER 2019-12-16 05:51:00 Pat Mohamud [facility] BASIC METABOLIC PANEL (7) 2019-12-16 04:08:00 Marcial Chapa [facility] PROTHROMBIN TIME/INR 2019-12-16 04:08:00 Marcial Chapa [facility] CBC W/PLT COUNT & AUTO 2019-12-16 04:08:00 Marcial Chapa [facility] SARS-COV2/RT-PCR ([facility] & 2019-12-16 01:45:[address] [facility] - REF LABS) [facility] Plan of Care Planned Activity Planned Date Details Comments Source Future Scheduled 2020-12-[address] [facility] Test 00:[facility]00 examination Medical Center (regime/therapy) [code = 194785147] Future Scheduled 2020-12-[address] [facility] - Test 00:00:00 malignant neoplasm of [facility] colon (procedure) [code = 912423003] Future Scheduled 2019-11-30 [facility] (#1) [code = Medical Center INFLUENZA VACCINE (#1)] Future Scheduled 2017-08-[address] [facility] - Test 00:00:00 measurement [facility] (procedure) [code = 50463873] Future Scheduled [address] [facility] - Test 00:00:00 (procedure) [code = Medical Center 87254427] Future Scheduled [address] [facility] - Test 00:00:00 malignant neoplasm of [facility] cervix (procedure) [code = 941871352] Future Scheduled 1965 DIABETIC EYE EXAM [facility] - Test 00:00:00 [code = DIABETIC EYE Medical Center EXAM] Future Scheduled 1965 Urine screening for [facility] - Test 00:00:00 protein (procedure) [facility] [code = 044256293] Future Scheduled [address] [facility] - Test 00:00:00 malignant neoplasm of [facility] breast (procedure) [code = 564990387] Encounters Start End Encounter Admission Attending Care Care Encounter Source Date/Time Date/Time Type Type Clinicians Facility Department ID 2018-11-17 2018-11-17 [facility] [id number] 11:30:00 11:30:00 [facility] 2018-10-06 2018-10-06 [facility] [id number] 16:14:00 16:14:00 [facility] ent Clinics 2018-09-28 2018-09-28 [facility] [id number] 10:30:00 10:30:00 [facility] ent Clinics Results Test Description Test Time Test Comments Results Result Comments Source ANAEROBIC CULTURE 2020-01-04 10:26:00 Test Item Value Reference Range Interpretation Comme nts CULTURE (BEAKER) (test code = 1095) No anaerobes isolated Tissue [id number] 10:21:00 Test Item Value Reference Range Interpretation Comments Case Report (test code Surgical Pathology = 104) Report Case: [id number] Authorizing Provider: Tala Santacruz DPM Collected: 12/30/2019 01:38 PM Ordering Location: [address] Med/Surg Received: 12/31/2019 06:52 AM Pathologist: Jovita Griffith MD Specimens: A) - Soft Tissue, Other, left 5th proximal phalanx B) - Metatarsal, Left, left 5th metatarsal DIAGNOSIS (test code = [id number] 3220) FuZzEwMzNcZnRuYmpcdWMx TBaeutLzBPlxn0ZtR1DgPk AwMFxhbnNpXGRlZmxhbmcx XJDhEGQ3wjKuITLfGTilLZ UiSIhqEh9alWCyrGutHtXg PDMsn2euzwJZntpvrUt2k3 kdGNQdVyS9iOMhVLfdZ7vj pxSiqHOuYJHeCCv7vD43OS ZxmA7qrQOjDQrdczCaDiS7 FTpeHRJtApK0IPFjmQYvUX XzL8rhQIVfOCedJXRgXZbg hNNuCXG4lWnnj2F4tEVnfI ZmxAyrKmDtKbBtDFGAi2Ad UGj3yQigD3AvQYCsPnX8qY QgUGFyYWdyYXBoIEZvbnQ7 uJ06ITelfdG9jFAfy0Mdf4 6mv400mW8jnEPdIRM5GBHx TQYbdXLmXWOeZDH5YXSchW XoV7j0KpTeyDWhX6R2XtCy hKFuH1G2KdBwlYNbC2J5Gh QywSZqHKJfvYZfSz7ktMYk xBCvpu8wck57WNO8o2ZawH alEGT3HXV4MmBlLm7obEXw ELUlHS1kIkJmmFDyCPQskp 81hGvgSOkmnhZwqP1kAcIi QFLrhMDhLCMyHJ6rrKFgUW XyoI6wqorjZIFuLxSakblu QCGtcYlvndFrCo3qvOxeKC B3QRoyE5nlmV6nSqF0RTvz G2wpbV4oWLd4RRcqfSU2NW BjhL4dVJ5zqaaas9teEnVc VH3xtxomj0ccXdMuYN5qji i0u9ndSnQuIY3emcyse7rl NzIwXGhlYWRlcnkwXGZvb3 EpbhusCGRck7AgV0AjnFix V42ttUcwN01pEHQnmWnqtK 2dxSwhvP1wQlKrGcPkHMiy bFxwbGFpblxmMVxmczIwXG piofcxTWYrMSwpV2ilBvFr DKWmqCeeTZfpy4BbFJWqSD QkErJlZX7wKn6MNVwoXVUE ERKSTKAIMFHZCz6AGB0ZBO VDNPFKVM5RKTQFYU7YF7x2 WLXxemYkDSFwOBCJVX1wC6 wJQTSUVzYHUfvOGL3ZCPTL UlRJTEFHRSBXSVRIIFNVUl DAFI8NEK9YDUNRPAOIFSLL RCBDSFJPTklDIElORkxBTU 1BVElPTlxwYXJccGFyIEIu IEJPTkUsIExFRlQgRklGVE ggTUVUQVRBUlNBTCwgQklP UFNZOlxwYXIgICAgLSBBQ1 UDNJRTW7QQP57JLIlVGBiN IFxwYXIgICAgLSBTRVBBUk VDCWNHTmARGJYFJBXvU3Ij DukRQm9JU40AZFOYJEJJXG DMM9GMFZPESGLDWKHUU8MS K8AeHT9PI0IUC0fRJZOAEV BHUkFOVUxBVElPTiBUSVNT GPWzSc7CDLIIDO3GISGbgt 83JUI3WaLln3W5PPP7ZOLb VBTpc9goDGXljMTyOdVvMo NcZnRuYmpcdWMxXGRlZmYw b3fdk147iKYht9aaSLXqLv D4bXXhOTHmvDFzE692VWFd FVxcl5lze4IfNKOohCEqv1 L1BPQOoobzaAq3xSymB74u l3V3UegfL6yoBSDqGAZsU1 HnJZ7jYGViCfl1XVZ7UXT7 EAGzOUBkE4LaWJ5oRHUfrH OdEBq0c3fzyQavYDIiDOU3 q8hkJPdyntLlDM2hei2yzP g3x1glpiBrGQEdILOubQTX SCToI1QujVwzSk7gdXi0wI xsCxqgECK9Dck2HK7muh30 ogd6lUypDFAtarvrHlK6CF qbZDUurpuqPNo1SYxmJLEz wFB2MNGalWFbS0CjVNOqLI 5aomm2SMH8IBlwBSDeUmO9 NDBcaGVhZGVyeTcyMFxmb2 61DIH9UkBdIQ8sA5Vud5D4 vM8xqQTjFXDqoVGwNdVxJO Tspq2kfGFtKQbvc0MtCYZ6 uaI7kLOdiFJdWTWhNlO4RT itTO8gle04BLZsXFV4de4k bGNccGdicmRyaGVhZFxwZ2 JgCSJpt397VGKuT6BrAOXq t5Z6uxNqDyJlAUSffPX3gb V6KSVuOU4nbmnai7hoGBym JKlkAAUdneH0fsP2YPNxuY EjP9LobY3tVILtUB1wuigl u8syJPC8NPyyOPOuAXU1Ub BsFJLou3Wenvg9EhSyf2Af cUBjHZcqD26dx266MMZsiw EdT4xedGZmworbpGVydvgn BPzkfsB9YBKlHPhzigecHS WjJGcjO4iaMgJjUGCxbDom NLyuq2FfKYEyCFPiMbIclN ThVZXaNtm0CXHbmYInLBFk KbHsM7dwmszzDbPWWVKco5 ljU1oviGMGnDWhM3GsPLyl heBjYHhnYYufAGC3PUD0Un 92AiN2MMJjmm25 CPT Code(s) (test code i2arfHRlYVDmcGArSjXeMK = 3357) CtHARlm2ovPTAtgHPsMbBt MzNcZnRuYmpcdWMxXGRlZm Lxe1tex140cPRuh1qxZZQm McU2wTWfEMJgoOZwM551b2 xxh2bhchJjjWO5OXJvKBV0 EVsafzWvtxB4UWlpnBNaUy W3PGyiywQwHDsqnsTnabDq Nic2HPBqC586VUF4rRarh8 gaRFX0JXKfLJOgGpQxGt5u zGCgW102VEGkNYQEVRFnwN b1KUJhvsZgfkMytTYYn446 N373d1mcPCPzapQtlCvGdl ipg0lyB158XNScdCIrvpLa QiHeHOKgvOOnnIO3HDAxXE 8qpzorBrEyRW4ewlsdEbTg XG3qpzv8IwYpMK1rzuuiGh GjUVhjGXScimwmGBFrm5Mj pnkdWL6nH3Bkx2N9yQ2fsK LqLOOicCLlUtPlBJTbbn4o cIFwISaop2CrYUR3klI7kW AueYOxXSYxUE02Hrhwo5Vm PhdiIUR7VNCzkpZyv4Wef2 ynDkIcmrIzX3fzE4OnWKOt EUYfDEMmOnEmyhKay1Tdv9 GiuYFcnZy0m8uoVXRlPIKx kOjge3kzLPP4GOOoG8M8rH Usl1juKYocBVUkcTV8xmnu QBubPQIqhcZ9vddxUOlwQU RncHP0iacaMGclFGWbDfX5 ekxtHQebMECtXJZ1DAzkr9 24NBD8AQffGpjtZSzdZIWy bmNvbnRccGduZGVjXHBsYW luXHBsYWluXGYwXGZzMjRc oHcajWijtN4dOtNyYdIgRV fwUR2cVDXcC0ytwSKrNWMx MMElD8nbLnXckS9nzUakYW dfjvTrVK6OI7I3AVBjapR0 COMdWaL4UvfpQOHiIDtzKA EgeDJccGFyfQ== CLINICAL HISTORY (test q3kbuEQvHPPhmZGrOmZdKB code = 3356) QsUKFst1bqJZPsjCCrWjXc MzNcZnRuYmpcdWMxXGRlZm Pyz1vix376wUEow0vyLUDf MiU6yGYyVJEmoBZxH370r8 osp1wqjaYlbJL4UEPdRIA6 UGtpnpUpcqA8NUekaYTmUr T4PKhralRbGUkdlxRpmlOc Xyy2XQCxP261YSB1aLaed6 apYEJ8MYYzXBPaUiEzBp8u wUTvO534SYCvGKMQBRLdzI b7LPOizrNpedWpuQZEp636 C937d2teQYMvheRrlZmIpa gdj6tpZ729IPAfhZWislSz EnXhSFFvvODdxON8LUGqBW 8bnxznRxNiOZ9jsfsoSuBs KP0dbqa8VhOtTS9fffgmJm XrZNgxLGXmkkgcJUYxo9No rhgbBQ6bU6Nyd6S3lQ9alF JuGBZgbGCrXyTcBGPwqu3l kDMmIZeym2YyMVB3isP5vX SztOZcGOVtQJ46Lgqnt2Kl KznvDJY3SEDkkdUwe3Spy1 elIiXuuaFbJ8scI4XmFWQa BOGtKVMvFcDfgsDph7Hfz1 TmzLUolBl4x8smRCThAOVv mCpbr9hnXAD7FFXcM8C9bK Gdw1jrAWplKNUniST1lccu ORefYNLjkoC0pdsjGJpcOM SwtLE5pnifFQepLKWdZvY1 ofxpGIucCLPlMOV5BShxz5 50CSM4YKmvUqsfVGgaIMMf bmNvbnRccGduZGVjXHBsYW luXHBsYWluXGYwXGZzMjRc tApieYtuiC0qQpYhGqDgRY vtPR2sDDRgA9vbuRUcVLZs OSSiM4vkFgMarP8owHttNF rlqgZyMY7ayMTiwWgacDo5 gOWqe5NjiHLgjKG2rZmoaE F2NRPyniLnnEmckDeiHAUh r8RiQahaGGKomtQbUGFyJD RccGFyfQ== SPECIMEN SOURCE (test x6yjjVJaPSIdlMNhTsGsXZ code = 3377) UqGSJeq7gxUGTjxEQfFtKc MzNcZnRuYmpcdWMxXGRlZm Hkk4erc941qQVll0wgNEKz ByU1mSNbFCEmdFDmQ381k4 iqz5zfufXcbLY6EPSsVDC3 VWojgoGxvtU3HRadqACjKc U3RVyffmJzOYqbdzBlviIs Zry2IRKeT061GPT4uBwho3 plVLU3KHQoNUNqOhAoMq4f tDFaT157UOYkRDVKZJSakY j5JZHxhaDqduFqyTMCp294 E292q5goJBGhdlLvqTeKkt aks3skT695OTWxvLCwoyRo LoDbRWTtmKImgBB8FZWlKK 5spcnbBwJtHT9ikdimAzLd RC6xhgq3QoPgBZ9ncdhlQo PeGWajDIHypqedEOWol0Ve xrklXL8aP6Ojr8I9sT1noR QgOUJczMNyBpBsSRIiba9j mWHxRFemg5XoMQI8bdS0wJ NcuJYwYHUeZE93Rxqig3Hc ChjzREU6WZAhhrSyt0Zsw8 ocDfIkkwOrJ5syI8SfYKTk EZGdRKTgXvCmziLzt8Qdj1 CqtXQpqBx7f4iqFDQbLXYe dGike2geSIM2WOIzI4H2lU Kii5qvHPrjZLCeuQN5cawt KJeaUHKvhkM8jdudNBnlWJ YtoKA9ekbiHKunYEDkOuK4 cuzwEUomCPMoEMR5HCnaf2 85XPL9HKvaEkslGFamGNNq bmNvbnRccGduZGVjXHBsYW luXHBsYWluXGYwXGZzMjRc uXluyKxryI3bDfWqDnVmTU eaHG4eJOJcZ2kpsCNlYXYs JFNtV9mbLiFnyD1xtUtmHX xmczIwIEEuIExlZnQgNXRo UIGys6ypbSLeZJAyVJqzxo blXKIlXOubDzOfRRSoMO7j sJB1WCVvMRmzFHFqsd1= GROSS DESCRIPTION (test w7hnbFTgRGHwlCPpRbJsZC code = 3366) JnJECyu7ryIUGczNAiQnJt MzNcZnRuYmpcdWMxXGRlZm Ctz3xnn365uKWhq5caSFDr DkF3gUKtMFMftKRtA177LR AqGCeaj8jrs6YhEHCkdMFc w4D4YPOOeiohjIm2bNitM3 8wh4W9SxcqM6rpYOYnDLJv H4GiSK1nQELjGbn9SXB2CB K4GTFxFBYnN6QcMF1eTJLu vGMrCDr3p7wykWwfZXZmNG J7h2zxNLavguRfII4siy0n zYl0i9qaqoMyJLQuBXLlmD UJHOHzT7KbfOnkSm8euDz5 nWzkUbttKJX8Ksb6RB1uir 40fra5eOmkJGNvbpteZoZ7 CPpyTFPehpfwQUz0LUvvDV JnbDcyMFxtYXJncjcyMFxt YXJndDcyMFxtYXJnYjcyMF sdIZNgJKD1JTdpf625ABW6 RHkun7vxy5nacRDdOvs2IP IcGuIoAkcbKNjhu5Hut6zr KOXban6bUAD2iXAiyFxie6 N9eLTwQLZdwEArpyNlAWCd AtT4AEqiKX6qds36NYZbDX Z5ux5oeXIebQxpuzDisWVb MKquO1DkTRKtd729YBWwK1 KnFQStc8O9rrQlElOsACWc vKK6fuF7MUIdXIi4zXFyve R0grYhnCFhO6dukR84HeJb rWBtC6QpnJ97UbXrcORrI4 MisI27IfZisJSpS6PjhF65 MmSueINiMYVpoNSyJj2luX HkbKRma7EjnJWjBFjeA33g c687HSJbryLlN0bisPSftz wpfFAucwowONtfaeH7BQOs XHBsYWluXGYwXGZzMjBcbG FuZzEwMzNcaGljaFxmMFxk YwUsHYOxPGhlB9wsGeVhVq BcNCSJmKJfaF7zycCPEJfn TLSlY4SghlOfRNnyUCWuzG N5nEIwHVutGsVaNSKxp7u5 hGR0wAQnzZR4oSIttEmaEZ 2yjDUsES0zGB8tOOgkAWgp dcWps1FpOP44dXOlpoFrkc QgZGVzaWduYXRlZCBhcyAi s10wvTI4xWCjlOBaRV42hA UiLlqrK47du3jmhQEue4Bi w0jvyPOoxXMjdJ15WXNenh BvFdNeU55mobXxPQ6pKQT0 cmluZyAwLjcgeCAwLjMgeC UqCaDgV22xGRJzFHYlsDEi bS9cwyGujrBqdTAyhAU1ZP KxTI89kUYfkGukhV59rcHP MMTavjGplK08xcVzPSOgzX Nmq5g5sHkgji8joVKgYHCw iyJTaUWfpC5zwrOEADkxJM AnE9JsplSyGUdrPSHjjZW6 wYJfNYknDxNqUSWnk9y4kI J9fMShaFT0kYJqzDcqIB5o zFQhBV3sRG9qLYpfCRzksr Dnl6AdTL15vRFlqlBcrjYq ZGVzaWduYXRlZCBhcyAibW S1MXIgspOewCYaEYP3Yvww D30ll7eqqAOwl1QtLc65fw GhKONiJzCfd99sfDqgl4El KXPiBOEfy33zFQMvXOnwEV 26ocMjBIJziTJeghdqHy7d AMxcNZ85MJlmNG32MLNlMX fqCWFxN1WvQ0N5YH8ipZxq IHNwZWNpbWVuIGlzIGVudG roSAi4FFhcfHVmtscgODif czIwXGxhbmcxMDMzXGhpY2 xqRrLdGKGeaAqkPJmqg8Py UNShRGIxTyFuQaIfJB6oPG ciaE5uKHOtEYszd76xmNAb d79kLYAeNTciKUJvVSOjYg BcbGFuZzEwMzNcaGljaFxm CLfcWbVzFMZfJMiiR2xdHn BcZnMyMCAgTUcvZXdccGFy fQ== MICROSCOPIC DESCRIPTION v8rolKMtRHAfoSSkOnCpUW (test code = 3371) VvZIBpq9ekMMDbxRWjCmPk MzNcZnRuYmpcdWMxXGRlZm Afh2xdg040mGPhp4yyUJLo OmE5qVVkSYKvjTBaU971f6 jxx2gmnoEbnOJ7OEDaGIC3 NLnnnqMuxzY1DJrcwUBmAe H9BCjkhaOmTEoxmqOpyvKa Tgg0WACtG815KES3rWwtp5 iaUQV6YXCvSOEyJpCaDz3m kSNwN816YFEtSYPBBZEjqY m4PQRbmoUsvbSrsLNLm940 Z161t1uoDWZjtgVeqXkNmi zqy8aoW898HXCssYQhcxJu QcEyVRYckACczDV4REHlOY 0eshuzHzFuYG9sfoesFtHm YY5svfv1VaKcNX5ddmwaSm SfUPelAXJazfnxUZVrw8Wj ovhhRX0iE2Bim8E1fX8vjO TyHHCrwGXhFvYhWQPsit8s lJAtQLthl3TjWMQ7znU7cT ZvnEPjIHVmSI83Tukgd9Lu HrvhSXN0IBBbtmJia9Kdc6 uiDrWxpiIxF0lsY7SnUOVh PNHeCOXdVjPsmrNcz6Wdp5 AulOCxaAx3l5raBMFqWHPp sFuxu6hqODP4INZeB1O0fK Log5cwIAknGPCdmMT4hyza WWztKQZlmyB2xugxPNllLQ UzfLS5qrajMVtgTEKoMtN2 asqaEQceQRTzWDW3HBlhh3 78CSF1IEjkEtacGFeiYZWj bmNvbnRccGduZGVjXHBsYW luXHBsYWluXGYwXGZzMjRc hOxfbBnboL7jKvDxBnFuKU laIY1uNRNsL4qksRSmWQUz PGHsR8oyOrOukF5kaNzuMP ezjjQwGQMaLt6tPQIpKq2q bWVkLlxwYXJ9 Gross assessment was [facility] performed at ([facility], Department = 2777) of Pathology, [address] [place] [address], Technical component was [facility] performed at ([facility], = 2778) Department of Pathology, [address] [place] [address], [address] [facility] was performed at ([facility], Department code = 2779) of Pathology, [address] [place] [address], [id number] 10:21:00Surgical Pathology Report Case: [id number] Authorizing Provider: Tala Santacruz DPM Collected: 12/30/2019 01:38 PM Ordering Location: [address] Med/Surg Received: 12/31/2019 06:52 AM Pathologist: Jovita Griffith MD Specimens: A) - Soft Tissue, Other, left 5th proximal phalanx B) -Metatarsal, Left, left 5th metatarsal A. BONE, LEFT FIFTH PROXIMAL PHALANX, BIOPSY: - SKIN WITH UNDERLYING CARTILAGE WITH SURROUNDING ACUTE AND CHRONIC INFLAMMATIONB. BONE, LEFT FIFTH METATARSAL, BIOPSY: - ACUTE OSTEOMYELITIS - SEPARATE FRAGMENTS OF FIBROCONNECTIVE TISSUE WITH ABSCESS, NECROSIS AND GRANULATION TISSUE FORMATION Signing Pathologist Direct Phone Line: [phone] signed by Jovita Griffith MD on 01/04/2020 at 10:21 AM/[id number] of left 5th metatarsal, ulcer of bilateral feetA. Left 5thproximal phalanx. B. Left 5th metatarsal Specimen A is received in fixative labeled with the patient's name and medical record number and designated as "soft tissue, other", consists of white-yellow bone fragments measuring 0.7 x 0.3 x 0.3 cm. The specimen is submitted entirely into A1 and into decal solution.Specimen B is received in fixative labeled with the patient's name and medical record numberand designated as "metatarsal left", consists of four red-brown tissue and bone fragments measuring 2.0 x 0.5 x 0.5 cm in aggregate. the specimen is entirely B1 and into decal solution. MG/Veronica-B. Performed.[facility], Department of Pathology, [address] [place] [id number], [facility], Department of Pathology, [address] [place] [address], [facility], [facility] of [facility], [address] [place] [address], EOIPWZQPU [id number] 10:47:00 Test Item Value Reference Interpretation Comments Range CULTURE (BEAKER) (test No anaerobes code = 1095) isolated Ciprofloxacin (test R code = 7) Clindamycin (test code R = 10) Erythromycin (test R code = 4) Gentamicin (test code S = 18) Levofloxacin (test R code = 22) Linezolid (test code = S 40) Moxifloxacin (test I code = 36) Nitrofurantoin (test S code = 23) Oxacillin (test code = S 14) Rifampin (test code = S 43) Tetracycline (test S code = 2) Tigecycline (test code S = 133) Trimethoprim + S Sulfamethoxazole (test code = 47) Vancomycin (test code S = 13) CULTURE (BEAKER) (test A <1+ C oagulase code = 1095) negative Staphylococcus SURGICALLY OBTAINED CULTURE + GRAM [id number] 08:31:00 Test Item Value Reference Range Interpretation Comments CULTURE (BEAKER) (test code No growth = 1095) GRAM STAIN RESULT (BEAKER) <1+ WBCs (test code = 1123) GRAM STAIN RESULT (BEAKER) No organisms seen (test code = 76204) SURGICALLY OBTAINED CULTURE + GRAM [id number] 08:19:00 Test Item Value Reference Interpretation Comments Range CULTURE (BEAKER) STENOTROPHOMONAS A 2+ Sten otrophomonas (test code = 1095) MALTOPHILIA maltophil ia Levofloxacin (test S code = 22) Trimethoprim + S Sulfamethoxazole (test code = 47) GRAM STAIN RESULT <1+ WBCs (BEAKER) (test code = 1123) GRAM STAIN RESULT No organisms seen (BEAKER) (test code = 777265) POC-Glucose [id number] 06:47:00 Test Item Value Reference Range Interpretation Comments POC-Glucose Meter (test 102 mg/dL 70-110 : TE STED AT [facility] code = 1538) [address], [facility] [address]: Therapy Manager/Techni artemio ID = [id number] for Anne Salgado Lab Interpretation (test Normal code = 48212-1) [facility] [id number] 06:47:00 Test Item Value Reference Range Interpretation Comments POC-GLUCOSE METER 102 mg/dL 70-110 : TESTED A T [facility] [address] (BEAKER) (test code [address], = 1538) [facility] [address]: Therapy Manager/Techni artemio ID = [id number] for Anne Busby Comprehensive metabolic [id number] 06:34:00 Test Item Value Reference Range Interpretation Comments Protein, Total (test 6.1 6.0- 8.5 gm/dL code = 2885-2) Albumin (test code = 2.3 g/dL 3.5-5 L 06256-2) Alkaline Phosphatase 81 U/L 30-115 (test code = 6768-6) Total Bilirubin (test 0.4 mg/dL 0.1-1.2 code = 1975-2) Sodium (test code = 137 meq/L 817-733 4686-2) Potassium (test code = 3.7 meq/L 3.6-5.5 2823-3) Chloride (test code = 100 meq/L 98-106 2075-0) CO2 (test code = 28 meq/L 20-29 2028-9) BUN (test code = 14 mg/dL 10-26 3094-0) Creatinine (test code 2.31 mg/dL 0.5-1.2 H = 2160-0) Glucose (test code = 100 mg/dL 70-110 2345-7) Calcium (test code = 7.5 mg/dL 8.5-10.5 L 71642-2) AST (test code = 15 U/L 5-40 1920-8) ALT (test code = 6 U/L 5-50 1742-6) EGFR (test code = 21 mL/min/1.73 [place] [address]-6) NOT ACCURATE CREATININE CLEARANCE IN PREDICTING GLOMERULAR FILTRATION RATE . ESTIMATED GFR I S NOT APPLICABLE FOR DIALYSIS PATIENTS. ZIA (test code = ZIA) Therapy Manager ID - ADMIN Lab Interpretation Abnormal (test code = 95531-6) [facility] [id number] 06:34:00 Test Item Value Reference Range Interpretation Comments TOTAL PROTEIN 6.1 gm/dL 6.0-8.5 (BEAKER) (test code = 770) ALBUMIN (BEAKER) 2.3 g/dL 3.5-5.0 L (test code = 1145) ALKALINE PHOSPHATASE 81 U/L 30-115 (BEAKER) (test code = 346) BILIRUBIN TOTAL 0.4 mg/dL 0.1-1.2 (BEAKER) (test code = 377) SODIUM (BEAKER) (test 137 meq/L 135-148 code = 381) POTASSIUM (BEAKER) 3.7 meq/L 3.6-5.5 (test code = 379) CHLORIDE (BEAKER) 100 meq/L 98-106 (test code = 382) CO2 (BEAKER) (test 28 meq/L 20-29 code = 355) BLOOD UREA NITROGEN 14 mg/dL 10-26 (BEAKER) (test code = 354) CREATININE (BEAKER) 2.31 mg/dL 0.50-1.20 H (test code = 358) GLUCOSE RANDOM 100 mg/dL 70-110 (BEAKER) (test code = 652) CALCIUM (BEAKER) 7.5 mg/dL 8.5-10.5 L (test code = 697) AST (SGOT) (BEAKER) 15 U/L 5-40 (test code = 353) ALT (SGPT) (BEAKER) 6 U/L 5-50 (test code = 347) EGFR (BEAKER) (test 21 mL/min/1.73 ESTIMA HINA GFR IS code = 1092) sq m NOT ACCURATE CREATININE CLEARANCE IN PREDICTING GLOMERULAR FILTRATION RATE . ESTIMATED GFR I S NOT APPLICABLE FOR DIALYSIS PATIEN TS. Therapy Manager ID - [id number] with platelet count + automated [id number] 06:06:00 Test Item Value Reference Range Interpretation Comments WBC (test code = 6690-2) 5.7 4.0- 10.0 K/L RBC (test code = 789-8) 2.41 4.00- 5.00 M/L L MCHC (test code = 786-4) 30.8 32.0- 36.0 GM/DL L Hematocrit (test code = 4544-3) 23.4 % 36-46 L MCV (test code = 787-2) 97.1 fL 82-99 MCH (test code = 785-6) 29.9 pg 27-33 RDW (test code = 788-0) 22.0 % 12-15 H Platelets (test code = 777-3) 84 150- 430 K/CU MM L MPV (test code = 95347-9) 10.5 fL 6-11.5 nRBC (test code = 413) 0 0- 0 /100 WBC % Neutros (test code = 429) 62 % % Lymphs (test code = 430) 29 % % Monos (test code = 431) 5 % % Eos (test code = 432) 2 % % Baso (test code = 437) 1 % # Neutros (test code = 670) 3.54 1.80- 8.00 K/L # Lymphs (test code = 414) 1.66 1.48- 4.50 K/L # Monos (test code = 415) 0.28 0.00- 1.30 K/L # Eos (test code = 416) 0.12 0.00- 0.50 K/L # Baso (test code = 417) 0.07 0.00- 0.20 K/L Immature Granulocytes-Relative 0 % 0-0 (test code = 2801) Lab Interpretation (test code = Abnormal 16162-5) [facility] & [facility]O [id number] 06:06:00 Test Item Value Reference Range Interpretation Comments WHITE BLOOD CELL COUNT (BEAKER) 5.7 K/ L 4.0-10.0 (test code = 775) RED BLOOD CELL COUNT (BEAKER) 2.41 M/ L 4.00-5.00 L (test code = 761) HEMOGLOBIN (BEAKER) (test code = 7.2 GM/DL 12.0-15.5 L 410) HEMATOCRIT (BEAKER) (test code = 23.4 % 36.0-46.0 L 411) MEAN CORPUSCULAR VOLUME (BEAKER) 97.1 fL 82.0-99.0 (test code = 753) MEAN CORPUSCULAR HEMOGLOBIN 29.9 pg 27.0-33.0 (BEAKER) (test code = 751) MEAN CORPUSCULAR HEMOGLOBIN CONC 30.8 GM/DL 32.0-36.0 L (BEAKER) (test code = 752) RED CELL DISTRIBUTION WIDTH 22.0 % 12.0-15.0 H (BEAKER) (test code = 412) PLATELET COUNT (BEAKER) (test code 84 K/CU MM 150-430 L = 756) MEAN PLATELET VOLUME (BEAKER) 10.5 fL 6.0-11.5 (test code = 754) NUCLEATED RED BLOOD CELLS (BEAKER) 0 /100 WBC 0-0 (test code = 413) NEUTROPHILS RELATIVE PERCENT 62 % (BEAKER) (test code = 429) LYMPHOCYTES RELATIVE PERCENT 29 % (BEAKER) (test code = 430) MONOCYTES RELATIVE PERCENT 5 % (BEAKER) (test code = 431) EOSINOPHILS RELATIVE PERCENT 2 % (BEAKER) (test code = 432) BASOPHILS RELATIVE PERCENT 1 % (BEAKER) (test code = 437) NEUTROPHILS ABSOLUTE COUNT 3.54 K/ L 1.80-8.00 (BEAKER) (test code = 670) LYMPHOCYTES ABSOLUTE COUNT 1.66 K/ L 1.48-4.50 (BEAKER) (test code = 414) MONOCYTES ABSOLUTE COUNT (BEAKER) 0.28 K/ L 0.00-1.30 (test code = 415) EOSINOPHILS ABSOLUTE COUNT 0.12 K/ L 0.00-0.50 (BEAKER) (test code = 416) BASOPHILS ABSOLUTE COUNT (BEAKER) 0.07 K/ L 0.00-0.20 (test code = 417) IMMATURE GRANULOCYTES-RELATIVE 0 % 0-0 PERCENT (BEAKER) (test code = 2801) POCT-GLUCOSE [id number] 21:02:00 Test Item Value Reference Range Interpretation Comments POC-GLUCOSE METER 167 mg/dL 70-110 H : TESTED A T [facility] (BEAKER) (test code [address], = 1538) [place] [id number]: Therapy Manager/Techni artemio ID = [id number] for Anne Busby POCT-GLUCOSE [id number] 18:12:00 Test Item Value Reference Range Interpretation Comments POC-GLUCOSE METER 121 mg/dL 70-110 H : TESTED A T [facility]17 (BEAKER) (test code [address], = 1538) [place] [id number] 478: Therapy Manager/Techni artemio ID = [id number] for Aydin Coheninor POCT-GLUCOSE [id number] 11:54:00 Test Item Value Reference Range Interpretation Comments POC-GLUCOSE METER 117 mg/dL 70-110 H : TESTED A T [facility] [address] (BEAKER) (test code [address], = 1538) [place] [id number]: Therapy Manager/Techni artemio ID = [id number] for Aydin Coheninor COMPREHENSIVE METABOLIC [id number] 06:47:00 Test Item Value Reference Range Interpretation Comments TOTAL PROTEIN 5.9 gm/dL 6.0-8.5 L (BEAKER) (test code = 770) ALBUMIN (BEAKER) 2.2 g/dL 3.5-5.0 L (test code = 1145) ALKALINE PHOSPHATASE 77 U/L 30-115 (BEAKER) (test code = 346) BILIRUBIN TOTAL 0.5 mg/dL 0.1-1.2 (BEAKER) (test code = 377) SODIUM (BEAKER) (test 136 meq/L 135-148 code = 381) POTASSIUM (BEAKER) 3.2 meq/L 3.6-5.5 L (test code = 379) CHLORIDE (BEAKER) 101 meq/L 98-106 (test code = 382) CO2 (BEAKER) (test 28 meq/L 20-29 code = 355) BLOOD UREA NITROGEN 19 mg/dL 10-26 (BEAKER) (test code = 354) CREATININE (BEAKER) 3.01 mg/dL 0.50-1.20 H (test code = 358) GLUCOSE RANDOM 96 mg/dL 70-110 (BEAKER) (test code = 652) CALCIUM (BEAKER) 7.4 mg/dL 8.5-10.5 L (test code = 697) AST (SGOT) (BEAKER) 17 U/L 5-40 (test code = 353) ALT (SGPT) (BEAKER) 6 U/L 5-50 (test code = 347) EGFR (BEAKER) (test 16 mL/min/1.73 ESTIMA HINA GFR IS code = 1092) sq m NOT ACCURATE CREATININE CLEARANCE IN PREDICTING GLOMERULAR FILTRATION RATE . ESTIMATED GFR I S NOT APPLICABLE FOR DIALYSIS PATIEN TS. Therapy Manager ID - [id number] 06:42:00 Test Item Value Reference Range Interpretation Comments Magnesium (test code = 1.6 mg/dL 1.5-3 99875-8) ZIA (test code = ZIA) Therapy Manager ID - ADMIN Lab Interpretation (test Normal code = 09280-9) [facility] [id number] 06:42:00 Test Item Value Reference Range Interpretation Comments POC-GLUCOSE METER 101 mg/dL 70-110 : TESTED A T [facility] (BEAKER) (test code [facility] [address], = 1538) [facility] 77 478: Therapy Manager/Techni artemio ID = [id number] for Anne Busby [id number] 06:42:00 Test Item Value Reference Range Interpretation Comments MAGNESIUM (BEAKER) (test code = 1.6 mg/dL 1.5-3.0 627) Therapy Manager ID - ADMINCBC W/PLT COUNT & AUTO [id number] 06:37:00 Test Item Value Reference Range Interpretation Comments WHITE BLOOD CELL COUNT (BEAKER) 5.9 K/ L 4.0-10.0 (test code = 775) RED BLOOD CELL COUNT (BEAKER) 2.57 M/ L 4.00-5.00 L (test code = 761) HEMOGLOBIN (BEAKER) (test code = 7.8 GM/DL 12.0-15.5 L 410) HEMATOCRIT (BEAKER) (test code = 25.3 % 36.0-46.0 L 411) MEAN CORPUSCULAR VOLUME (BEAKER) 98.4 fL 82.0-99.0 (test code = 753) MEAN CORPUSCULAR HEMOGLOBIN 30.4 pg 27.0-33.0 (BEAKER) (test code = 751) MEAN CORPUSCULAR HEMOGLOBIN CONC 30.8 GM/DL 32.0-36.0 L (BEAKER) (test code = 752) RED CELL DISTRIBUTION WIDTH 22.0 % 12.0-15.0 H (BEAKER) (test code = 412) PLATELET COUNT (BEAKER) (test code 84 K/CU MM 150-430 L = 756) MEAN PLATELET VOLUME (BEAKER) 10.6 fL 6.0-11.5 (test code = 754) NUCLEATED RED BLOOD CELLS (BEAKER) 0 /100 WBC 0-0 (test code = 413) NEUTROPHILS RELATIVE PERCENT 68 % (BEAKER) (test code = 429) LYMPHOCYTES RELATIVE PERCENT 23 % (BEAKER) (test code = 430) MONOCYTES RELATIVE PERCENT 5 % (BEAKER) (test code = 431) EOSINOPHILS RELATIVE PERCENT 3 % (BEAKER) (test code = 432) BASOPHILS RELATIVE PERCENT 1 % (BEAKER) (test code = 437) NEUTROPHILS ABSOLUTE COUNT 4.05 K/ L 1.80-8.00 (BEAKER) (test code = 670) LYMPHOCYTES ABSOLUTE COUNT 1.39 K/ L 1.48-4.50 L (BEAKER) (test code = 414) MONOCYTES ABSOLUTE COUNT (BEAKER) 0.27 K/ L 0.00-1.30 (test code = 415) EOSINOPHILS ABSOLUTE COUNT 0.16 K/ L 0.00-0.50 (BEAKER) (test code = 416) BASOPHILS ABSOLUTE COUNT (BEAKER) 0.05 K/ L 0.00-0.20 (test code = 417) IMMATURE GRANULOCYTES-RELATIVE 0 % 0-0 PERCENT (BEAKER) (test code = 2801) POCT-GLUCOSE [id number] 20:24:00 Test Item Value Reference Range Interpretation Comments POC-GLUCOSE METER 155 mg/dL 70-110 H : TESTED A T [facility] 1317 (BEAKER) (test code [facility], = 1538) [facility] 77 098: Therapy Manager/Techni artemio ID = [id number] for Anne Busby POCT-GLUCOSE [id number] 16:39:00 Test Item Value Reference Range Interpretation Comments POC-GLUCOSE METER 164 mg/dL 70-110 H : Notified RN/MD: TESTED (BEAKER) (test code AT [facility] [address] = 1538) [facility] [address]: Therapy Manager/Techni artemio ID = [id number] for Alondra Kelley SARS-CoV2/RT-PCR (Asymptomatic ONLY)2019-12-30 15:57:00 Test Item Value Reference Range Interpretation Comments SARS-COV2/RT-PCR Negative Not Detected, (test code = Negative, See 78175-6) external report for linked test SARS-COV-2 [facility] (test code = 43141-1) ZIA (test code = Negative result for this ZIA) test determines that SARS-CoV-2 RNA was not present in the specimen above the Limit of Detection (LOD). However, Negative results do not preclude SARS-CoV-2 infection and should not be used as the sole basis for treatment or patient management decisions. Negative results must be combined with clinical observations, patient history, and epidemiological information. A false negative result may occur if a specimen is improperly collected, transported or handled. A false negative result should be considered if patient's recent exposures or clinical presentation indicate that COVID-19 (SARS-CoV-2) is likely and diagnostic tests for other causes of illness are negative. Re-testing should be considered in cases of suspected [...] Food and Drug Administration (FDA) cleared or approved. This is a modified version of an approved [...] of the Act. Fact Sheet for Healthcare Providers:https://www.Estimize.Trackway/sites/default/f loco/product/documents/F act_Sheet_HC_Providers_L djh_KNAB-UpC-5.pdf Fact Sheet for Healthcare Patients:https://www.meir del.com/sites/default/fi les/product/documents/Fa ct_Sheet_Patients_Lyra_S ARS-CoV-2.pdf Performing Laboratory:[facility] [place] [address] [facility] & REF [facility])2019-12-30 15:57:00 Test Item Value Reference Range Interpretation Comments SARS-COV2/RT-PCR (test Negative Not Detected, Negative, code = 8225925) See external report for linked test SARS-COV-2 PERFORMING LAB [facility] (test code = 9561854) Negative result for this test determines that SARS-CoV-2 RNA was not present in the specimen above the Limit of Detection (LOD). However, Negative results do not preclude SARS-CoV-2 infection and should not be used as the sole basis for treatment or patient management decisions. Negative results mustbe combined with clinical observations, patient history, and epidemiological information. A false negative result may occur if a specimen is improperly collected, transported or handled. A false negative result should be considered if patient's recent exposures or clinical presentation indicate that COVID-19 (SARS-CoV-2) is likely and diagnostic tests for other causes of illness are negative. Re-testing should be considered in cases of suspected false negatives.The limit of detection for this assay is 800 copies/mL.This SARS CoV-2 test is a real-time RT-PCR test intended for the qualitative detection of nucleic acid from SARS-CoV-2 in a nasopharyngeal swab specimen collected from individuals susp ected of COVID-19 by their healthcare provider.This test has not been Food and Drug Administration (FDA) cleared or approved. This is a modified version of an approved [...] is revoked under Section 564(g) of the Act.Fact Sheet for Healthcare Providers:https://www.LabArchives.Trackway/sites/default/files/product/documents/Fact_Shee f_NO_Rlrhklinc_Ngcx_KQAF-KfU-8.pdfFact Sheet for Healthcare Patients:https://www.LabArchives.com/sites/default/files/product/ documents/Vktm_Feyte_Rrkhrcij_Zrqi_OYCE-NeE-9.pdfPerforming Laboratory:[facility], [place] [address]ECFJ-GOHHQTR METER 2019-12-30 11:50:00 Test Item Value Reference Range Interpretation Comments POC-GLUCOSE METER 82 mg/dL 70-110 : Notified RN/MD: TESTED (BEAKER) (test code = AT [address]) [place] [address]: Therapy Manager/Techni artemio ID = [id number] for Alondra Kelley WOUND CULTURE + GRAM [id number] 10:45:00 Test Item Value Reference Interpretation Comments Range CULTURE (BEAKER) STENOTROPHOMONAS A 1+ Sten otrophomonas (test code = 1095) MALTOPHILIA maltophil ia Levofloxacin (test S code = 22) Trimethoprim + S Sulfamethoxazole (test code = 47) CULTURE (BEAKER) A 1+ Kary (test code = 1095) parapsilo sis GRAM STAIN RESULT <1+ WBCs (BEAKER) (test code = 1123) GRAM STAIN RESULT <1+ gram negative (BEAKER) (test code rods = 792826) POCT-GLUCOSE [id number] 05:50:00 Test Item Value Reference Range Interpretation Comments POC-GLUCOSE METER 103 mg/dL 70-110 : Notified RN/MD: TESTED (BEAKER) ([facility] [address] = 1538) [place] [address]: Therapy Manager/Techni artemio ID = [id number] for Zonia Healy COMPREHENSIVE METABOLIC [id number] 05:44:00 Test Item Value Reference Range Interpretation Comments TOTAL PROTEIN 6.5 gm/dL 6.0-8.5 (BEAKER) (test code = 770) ALBUMIN (BEAKER) 2.4 g/dL 3.5-5.0 L (test code = 1145) ALKALINE PHOSPHATASE 81 U/L 30-115 (BEAKER) (test code = 346) BILIRUBIN TOTAL 0.5 mg/dL 0.1-1.2 (BEAKER) (test code = 377) SODIUM (BEAKER) (test 137 meq/L 135-148 code = 381) POTASSIUM (BEAKER) 3.2 meq/L 3.6-5.5 L (test code = 379) CHLORIDE (BEAKER) 100 meq/L 98-106 (test code = 382) CO2 (BEAKER) (test 27 meq/L 20-29 code = 355) BLOOD UREA NITROGEN 16 mg/dL 10-26 (BEAKER) (test code = 354) CREATININE (BEAKER) 2.65 mg/dL 0.50-1.20 H (test code = 358) GLUCOSE RANDOM 109 mg/dL 70-110 (BEAKER) (test code = 652) CALCIUM (BEAKER) 7.8 mg/dL 8.5-10.5 L (test code = 697) AST (SGOT) (BEAKER) 16 U/L 5-40 (test code = 353) ALT (SGPT) (BEAKER) 6 U/L 5-50 (test code = 347) EGFR (BEAKER) (test 18 mL/min/1.73 ESTIMA HINA GFR IS code = 1092) sq m NOT ACCURATE CREATININE CLEARANCE IN PREDICTING GLOMERULAR FILTRATION RATE . ESTIMATED GFR I S NOT APPLICABLE FOR DIALYSIS PATIEN TS. Therapy Manager ID - ADMINCBC W/PLT COUNT & AUTO [id number] 05:29:00 Test Item Value Reference Range Interpretation Comments WHITE BLOOD CELL COUNT (BEAKER) 6.2 K/ L 4.0-10.0 (test code = 775) RED BLOOD CELL COUNT (BEAKER) 2.89 M/ L 4.00-5.00 L (test code = 761) HEMOGLOBIN (BEAKER) (test code = 8.6 GM/DL 12.0-15.5 L 410) HEMATOCRIT (BEAKER) (test code = 28.2 % 36.0-46.0 L 411) MEAN CORPUSCULAR VOLUME (BEAKER) 97.6 fL 82.0-99.0 (test code = 753) MEAN CORPUSCULAR HEMOGLOBIN 29.8 pg 27.0-33.0 (BEAKER) (test code = 751) MEAN CORPUSCULAR HEMOGLOBIN CONC 30.5 GM/DL 32.0-36.0 L (BEAKER) (test code = 752) RED CELL DISTRIBUTION WIDTH 21.4 % 12.0-15.0 H (BEAKER) (test code = 412) PLATELET COUNT (BEAKER) (test code 97 K/CU MM 150-430 L = 756) MEAN PLATELET VOLUME (BEAKER) 10.5 fL 6.0-11.5 (test code = 754) NUCLEATED RED BLOOD CELLS (BEAKER) 0 /100 WBC 0-0 (test code = 413) NEUTROPHILS RELATIVE PERCENT 65 % (BEAKER) (test code = 429) LYMPHOCYTES RELATIVE PERCENT 26 % (BEAKER) (test code = 430) MONOCYTES RELATIVE PERCENT 5 % (BEAKER) (test code = 431) EOSINOPHILS RELATIVE PERCENT 2 % (BEAKER) (test code = 432) BASOPHILS RELATIVE PERCENT 1 % (BEAKER) (test code = 437) NEUTROPHILS ABSOLUTE COUNT 4.02 K/ L 1.80-8.00 (BEAKER) (test code = 670) LYMPHOCYTES ABSOLUTE COUNT 1.62 K/ L 1.48-4.50 (BEAKER) (test code = 414) MONOCYTES ABSOLUTE COUNT (BEAKER) 0.28 K/ L 0.00-1.30 (test code = 415) EOSINOPHILS ABSOLUTE COUNT 0.15 K/ L 0.00-0.50 (BEAKER) (test code = 416) BASOPHILS ABSOLUTE COUNT (BEAKER) 0.06 K/ L 0.00-0.20 (test code = 417) IMMATURE GRANULOCYTES-RELATIVE 0 % 0-0 PERCENT (BEAKER) (test code = 2801) POCT-GLUCOSE [id number] 21:21:00 Test Item Value Reference Range Interpretation Comments POC-GLUCOSE METER 185 mg/dL 70-110 H : Notified RN/MD: TESTED (BEAKER) (test code AT [facility] [address] POINT = 1538) [place] [address]: Therapy Manager/Techni artemio ID = [id number] for Niraj Zonia POCT-GLUCOSE [id number] 11:21:00 Test Item Value Reference Range Interpretation Comments POC-GLUCOSE METER 143 mg/dL 70-110 H : Notified RN/MD: TESTED (BEAKER) (test code AT [facility] [address] POINT = 1538) [place] [address]: Therapy Manager/Techni artemio ID = [id number] for Alondra Kelley COMPREHENSIVE METABOLIC [id number] 06:27:00 Test Item Value Reference Range Interpretation Comments TOTAL PROTEIN 6.4 gm/dL 6.0-8.5 (BEAKER) (test code = 770) ALBUMIN (BEAKER) 2.4 g/dL 3.5-5.0 L (test code = 1145) ALKALINE PHOSPHATASE 84 U/L 30-115 (BEAKER) (test code = 346) BILIRUBIN TOTAL 0.6 mg/dL 0.1-1.2 (BEAKER) (test code = 377) SODIUM (BEAKER) (test 136 meq/L 135-148 code = 381) POTASSIUM (BEAKER) 3.5 meq/L 3.6-5.5 L (test code = 379) CHLORIDE (BEAKER) 101 meq/L 98-106 (test code = 382) CO2 (BEAKER) (test 25 meq/L 20-29 code = 355) BLOOD UREA NITROGEN 22 mg/dL 10-26 (BEAKER) (test code = 354) CREATININE (BEAKER) 3.18 mg/dL 0.50-1.20 H (test code = 358) GLUCOSE RANDOM 69 mg/dL 70-110 L (BEAKER) (test code = 652) CALCIUM (BEAKER) 7.8 mg/dL 8.5-10.5 L (test code = 697) AST (SGOT) (BEAKER) 21 U/L 5-40 (test code = 353) ALT (SGPT) (BEAKER) 7 U/L 5-50 (test code = 347) EGFR (BEAKER) (test 15 mL/min/1.73 ESTIMA HINA GFR IS code = 1092) sq m NOT ACCURATE CREATININE CLEARANCE IN PREDICTING GLOMERULAR FILTRATION RATE . ESTIMATED GFR I S NOT APPLICABLE FOR DIALYSIS PATIEN TS. Therapy Manager ID - ADMINPOCT-GLUCOSE [id number] 06:21:00 Test Item Value Reference Range Interpretation Comments POC-GLUCOSE METER 73 mg/dL 70-110 : Notified RN/MD: TESTED (BEAKER) (test code = AT [address]) [facility] [address]: Therapy Manager/Techni artemio ID = [id number] for aCrloskylee Zonia CBC W/PLT COUNT & AUTO [id number] 06:00:00 Test Item Value Reference Range Interpretation Comments WHITE BLOOD CELL COUNT (BEAKER) 6.3 K/ L 4.0-10.0 (test code = 775) RED BLOOD CELL COUNT (BEAKER) 3.00 M/ L 4.00-5.00 L (test code = 761) HEMOGLOBIN (BEAKER) (test code = 8.9 GM/DL 12.0-15.5 L 410) HEMATOCRIT (BEAKER) (test code = 28.5 % 36.0-46.0 L 411) MEAN CORPUSCULAR VOLUME (BEAKER) 95.0 fL 82.0-99.0 (test code = 753) MEAN CORPUSCULAR HEMOGLOBIN 29.7 pg 27.0-33.0 (BEAKER) (test code = 751) MEAN CORPUSCULAR HEMOGLOBIN CONC 31.2 GM/DL 32.0-36.0 L (BEAKER) (test code = 752) RED CELL DISTRIBUTION WIDTH 21.3 % 12.0-15.0 H (BEAKER) (test code = 412) PLATELET COUNT (BEAKER) (test 109 K/CU MM 150-430 L code = 756) MEAN PLATELET VOLUME (BEAKER) 10.3 fL 6.0-11.5 (test code = 754) NUCLEATED RED BLOOD [...] (test code = 437) NEUTROPHILS ABSOLUTE COUNT 3.92 K/ L 1.80-8.00 (BEAKER) (test code = 670) LYMPHOCYTES ABSOLUTE COUNT 1.86 K/ L 1.48-4.50 (BEAKER) (test code = 414) MONOCYTES ABSOLUTE COUNT (BEAKER) 0.28 K/ L 0.00-1.30 (test code = 415) EOSINOPHILS ABSOLUTE COUNT 0.13 K/ L 0.00-0.50 (BEAKER) (test code = 416) BASOPHILS ABSOLUTE COUNT (BEAKER) 0.05 K/ L 0.00-0.20 (test code = 417) IMMATURE GRANULOCYTES-RELATIVE 0 % 0-0 PERCENT (BEAKER) (test code = 2801) POCT-GLUCOSE [id number] 20:48:00 Test Item Value Reference Range Interpretation Comments POC-GLUCOSE METER 84 mg/dL 70-110 : Notified RN/MD: TESTED (BEAKER) (test code = AT [address] [address]) [place] [id number]: Therapy Manager/Techni artemio ID = [id number] for Zonia Healy POCT-GLUCOSE [id number] 17:51:00 Test Item Value Reference Range Interpretation Comments POC-GLUCOSE METER 59 mg/dL 70-110 L : TESTED A T [facility] [address] (BEAKER) (test code = [address] 15[address]) [place] [address]: Therapy Manager/Techni artemio ID = [id number] for Christina r, Berta POCT-GLUCOSE [id number] 13:28:00 Test Item Value Reference Range Interpretation Comments POC-GLUCOSE METER 67 mg/dL 70-110 L : TESTED A T [facility] [address] (BEAKER) (test code = [address], 1538) [place] [address]: Therapy Manager/Techni artemio ID = [id number] for Christina r, Berta POCT-GLUCOSE [id number] 06:04:00 Test Item Value Reference Range Interpretation Comments POC-GLUCOSE METER 94 mg/dL 70-110 : TESTED A T [facility] [address] (BEAKER) (test code = [address], 1538) [place] [address]: Therapy Manager/Techni artemio ID = [id number] for Anahi Sherman COMPREHENSIVE METABOLIC [id number] 05:35:00 Test Item Value Reference Range Interpretation Comments TOTAL PROTEIN 6.4 gm/dL 6.0-8.5 (BEAKER) (test code = 770) ALBUMIN (BEAKER) 2.4 g/dL 3.5-5.0 L (test code = 1145) ALKALINE PHOSPHATASE 78 U/L 30-115 (BEAKER) (test code = 346) BILIRUBIN TOTAL 0.6 mg/dL 0.1-1.2 (BEAKER) (test code = 377) SODIUM (BEAKER) (test 138 meq/L 135-148 code = 381) POTASSIUM (BEAKER) 3.3 meq/L 3.6-5.5 L (test code = 379) CHLORIDE (BEAKER) 99 meq/L 98-106 (test code = 382) CO2 (BEAKER) (test 26 meq/L 20-29 code = 355) BLOOD UREA NITROGEN 19 mg/dL 10-26 (BEAKER) (test code = 354) CREATININE (BEAKER) 2.68 mg/dL 0.50-1.20 H (test code = 358) GLUCOSE RANDOM 76 mg/dL 70-110 (BEAKER) (test code = 652) CALCIUM (BEAKER) 7.6 mg/dL 8.5-10.5 L (test code = 697) AST (SGOT) (BEAKER) 17 U/L 5-40 (test code = 353) ALT (SGPT) (BEAKER) 6 U/L 5-50 (test code = 347) EGFR (BEAKER) (test 18 mL/min/1.73 ESTIMA HINA GFR IS code = 1092) sq m NOT ACCURATE CREATININE CLEARANCE IN PREDICTING GLOMERULAR FILTRATION RATE . ESTIMATED GFR I S NOT APPLICABLE FOR DIALYSIS PATIEN TS. Therapy Manager ID - ADMINCBC W/PLT COUNT & AUTO [id number] 04:56:00 Test Item Value Reference Range Interpretation Comments WHITE BLOOD CELL COUNT (BEAKER) 6.5 K/ L 4.0-10.0 (test code = 775) RED BLOOD CELL COUNT (BEAKER) 2.86 M/ L 4.00-5.00 L (test code = 761) HEMOGLOBIN (BEAKER) (test code = 8.6 GM/DL 12.0-15.5 L 410) HEMATOCRIT (BEAKER) (test code = 27.7 % 36.0-46.0 L 411) MEAN CORPUSCULAR VOLUME (BEAKER) 96.9 fL 82.0-99.0 (test code = 753) MEAN CORPUSCULAR HEMOGLOBIN 30.1 pg 27.0-33.0 (BEAKER) (test code = 751) MEAN CORPUSCULAR HEMOGLOBIN CONC 31.0 GM/DL 32.0-36.0 L (BEAKER) (test code = 752) RED CELL DISTRIBUTION WIDTH 21.4 % 12.0-15.0 H (BEAKER) (test code = 412) PLATELET COUNT (BEAKER) (test code 90 K/CU MM 150-430 L = 756) MEAN PLATELET VOLUME (BEAKER) 10.4 fL 6.0-11.5 (test code = 754) NUCLEATED RED BLOOD CELLS (BEAKER) 1 /100 WBC 0-0 H (test code = 413) NEUTROPHILS RELATIVE PERCENT 67 % (BEAKER) (test code = 429) LYMPHOCYTES RELATIVE PERCENT 25 % (BEAKER) (test code = 430) MONOCYTES RELATIVE PERCENT 5 % (BEAKER) (test code = 431) EOSINOPHILS RELATIVE PERCENT 3 % (BEAKER) (test code = 432) BASOPHILS RELATIVE PERCENT 1 % (BEAKER) (test code = 437) NEUTROPHILS ABSOLUTE COUNT 4.35 K/ L 1.80-8.00 (BEAKER) (test code = 670) LYMPHOCYTES ABSOLUTE COUNT 1.59 K/ L 1.48-4.50 (BEAKER) (test code = 414) MONOCYTES ABSOLUTE COUNT (BEAKER) 0.29 K/ L 0.00-1.30 (test code = 415) EOSINOPHILS ABSOLUTE COUNT 0.16 K/ L 0.00-0.50 (BEAKER) (test code = 416) BASOPHILS ABSOLUTE COUNT (BEAKER) 0.05 K/ L 0.00-0.20 (test code = 417) IMMATURE GRANULOCYTES-RELATIVE 0 % 0-0 PERCENT (BEAKER) (test code = 2801) POCT-GLUCOSE [id number] 20:43:00 Test Item Value Reference Range Interpretation Comments POC-GLUCOSE METER 137 mg/dL 70-110 H : TESTED A T [facility] 1317 (BEAKER) (test code [facility] [address], = 1538) [facility] [address]: Therapy Manager/Techni artemio ID = [id number] for Anahi Sherman MR, EXTREMITY, LOWER, WITHOUT CONTRAST, [id number] 16:55:00MRI LEFT FOOT.Unlisted Reason for Exam - Click Yes and Enter Reason Below->NoDeos the patient have an implanted electronic device?->NoFINAL REPORT MRI OF THE LEFT FOOT WITHOUT CONTRAST HISTORY: Wound dehiscence, osteomyelitis COMPARISON: MRI of the left ankle/hindfoot of 12/23/2019, left foot radiographs of 12/20/2019 TECHNIQUE: Multiplanar multisequence MRI of the left foot was targeted to the area of clinicalconcern, the forefoot. No intravenous contrast was utilized. FINDINGS: Status post amputation of the great toe at the level of the articular surface of the first metatarsal head. There is no specific MRI evidence of osteomyelitis in the first metatarsal remnant. No fluid collection is seen adjacent to the first metatarsal remnant. There is no evidence for osteoarthritis in the second, third, and fourth toes. Evaluation for marrow edema in the foot is somewhat limited due to a relatively diffuse increase in T2/STIR marrow signal throughout the foot. There does appear to be an ulcer plantar to the fifth MTP joint. There is abnormal hypointense T1 hyperintense T2/STIR signal in the fifth metatarsal head and neck, suspicious for osteomyelitis. There is less pronounced hypointense T1/hyperintense T2/STIR signal at the base of the fifth proximal phalanx which could represent early changes of osteomyelitis. No abscess is seen adjacent to this ulcer. There is diffuse edema like signal in the musculature of the forefoot suggestive of denervation. No intramuscular fluid collection is identified. The Lisfranc ligament complex appears intact. IMPRESSION: 1. Ulcer plantar to the fifth MTP joint. Abnormal signal in the fifth metatarsal head/neck and at the base of the fifth proximal phalanx, suspicious for osteomyelitis. 2. Status post amputation of the great toe at the level of the articular surface of the metatarsal head. No evidence of osteomyelitis in the first metatarsal remnant. Signed: Js Ring MDReport Verified Date/Time: 12/27/2019 16:55:07 Reading Location: [facility] Radiology Reading Room MR lower extremity without IV contrast left [id number] 16:55:00Interface, External Ris In - 12/27/2019 4:57 PM CDTFINAL REPORT MRI OF THE LEFT FOOT WITHOUT CONTRAST HISTORY: Wound dehiscence, osteomyelitis COMPARISON: MRI of the left ankle/hindfoot of 12/23/2019, left foot radiographs of 12/20/2019 TECHNIQUE: Multiplanar multisequence MRI of the left foot was targeted to the area of clinical concern, the forefoot. No intravenous contrast was utilized. FINDINGS: Status post amputation of the great toe at the level of the articular surfaceof the first metatarsal head. There is no specific MRI evidence of osteomyelitis in the first metatarsal remnant. No fluid collection is seen adjacent to the first metatarsal remnant. There is no eviden ce for osteoarthritis in the second, third, and fourth toes. Evaluation for marrow edema in the footis somewhat limited due to a relatively diffuse increase in T2/STIR marrow signal throughout the foot. There does appear to be an ulcer plantar to the fifth MTP joint. There is abnormal hypointense T1 hyperintense T2/STIR signal in the fifth metatarsal head and neck, suspicious for osteomyelitis. There is less pronounced hypointense T1/hyperintense T2/STIR signal at the base of the fifth proximal phalanx which could represent early changes of osteomyelitis. No abscess is seen adjacent to this ulcer.There is diffuse edema like signal in the musculature of the forefoot suggestive of denervation. No intramuscular fluid collection is identified. The Lisfranc ligament complex appears intact. IMPRESSION: 1. Ulcer plantar to the fifth MTP joint. Abnormal signal in the fifth metatarsal head/neck and atthe base of the fifth proximal phalanx, suspicious for osteomyelitis. 2. Status post amputation of the great toe at the level of the articular surface of the metatarsal head. No evidence of osteomyelitis in the first metatarsal remnant. Signed: Lynda Ring MDRepemily Verified Date/Time: 12/27/2019 16:55:07 Reading Location: [facility] Radiology Reading Room Electronically signed by: Adrienne CHU 12/27/2019 04:55 [facility] [id number] 14:19:00 Test Item Value Reference Range Interpretation Comments POC-GLUCOSE METER 232 mg/dL 70-110 H : TESTED A T [facility] 1317 (BEAKER) (test code [address], = 1538) [facility] 77 [id number]: Therapy Manager/Techni artemio ID = [id number] for Berta Servin CT, CTA AAA, W/ GÓMEZ.EXT.[id number] 11:38:00Bilateral lower extremities Addendum BeginsREPORT STATUS:A I agree with the nonvascular findings with exceptions and emphasis as below:*Moderate right and small left pleural effusions are partially visualized.*Large volume ascites.*Diffuse anasarca*The reflux of contrast into the hepatic veins is concerning for volume overload. Signed: Molly Linares MDReport Verified Date/Time: 12/27/2019 11:38:28 Reading Location: [facility] Diagnostic Imaging Reading Room - [place] [id number] EndsFINAL REPORT CT angiography of the abdominal aorta and runoff, 26-Dec-19 INDICATION: This is a 64 year old female with with lower leg penetrating trauma presents for assessment. TECHNIQUE: Spiral acquisition before and during intravenous contrast administration using a GE multidetector CT scanner. Images were obtained before and during the dynamic passage of intravenous contrast material. Multi-planar 3-D volume-rendering reconstruction was performed using an independent workstation interactively by theinterpreting physician as well as the 3-D specialist for optimal visualisation of the abdominal aorta, pelvic arteries, and its peripheral branches. Please refer to the contrast sheet scanned in the RIS system for the amount and route of contrast given. This exam was performed according to our departmental dose-optimisation programme, which includes automated exposure control, adjustment of the mA and/or kV according to patient size and/or use of iterative reconstruction technique. Dose modulation, i terative reconstruction, and/or weight based adjustment of the mA/kV was utilized to reduce the radiation dose to as low as reasonably achievable. FINDINGS: VASCULAR: A central venous catheter is partially seen, with tip identified in the juncture of the SVC/RA. Coronary artery calcification is identified in all three coronary territories, incompletely assessed. There could be fossa stent identified in the LCx and RCA territory, again incompletely assessed. Biatrial enlargement is identified, right greater than left. The IVC is prominent. The left ventricle could be mildly prominent. There is likely subendocardial hypodensity identified in the apex, also along the lateral wall that may suggest effect of underlying coronary artery disease; correlate clinically. The central pulmonary artery is enlarged, and correlate with appropriate aetiology. No evidence of central pulmonary artery embolism is observed. The descending thoracic aorta is remarkable for mixture of calcific and noncalcific atherosclerosis. No ectasia or aneurysmal dilation is seen. The abdominal aorta is normal in course and calibre. However, I will to moderate calcification is identified, and substantial noncalcific atheroma is present. For example, at the takeoff of the SMA, the thickness of the noncalcific atherosclerotic plaque is approximately, at 6 mm image 154. Moderate atherosclerosis is identified infrarenal abdominal aorta. No obstructive lesion is visualised. No acute aortic pathology is seen including dissection or contained rupture. No ectasia or aneurysmal dilation is noted. Quantitative dimensions of the abdominal aorta are as follows: 1.9 cm at the mesenteric segment; 1.8 cm at the renal segment,; and 1.8cm at the aortic bifurcation. At least a moderate stenosis is identified in the takeoff of the coeliac axis, at image 135, of uncertain significance in the absence of GI symptoms. The SMA has calcific and noncalcific atherosclerosis with only mild to moderate lesion present. Mild atherosclerosis is identified distally, considered nonobstructive in nature. The TYLER is patent. Significant lesion is identified the origin of the takeoff of the left renal artery and remainder the right renal artery is p atent. Nonobstructive atherosclerosis identified in the right renal artery. Significant stenosis is seen at the takeoff of the left common iliac artery substantial calcific and noncalcific atherosclerosis identified, image 262, with minimum diameter of 3.0 x 3.6 mm, when compared to average diameter of 9 mm. Remainder of the left common iliac artery has nonobstructive calcific and noncalcific atherosclerosis identified. The left external iliac artery has nonobstructive atherosclerosis present. Similar finding is seen in the left common femoral artery. There could be either atherosclerotic ulceration /localised nonflow-limiting dissection identified in the distal left common femoral artery at image 405. In the left, long stent system is identified along the majority of the pathway of the left SFA. The stent is patent, with only minimal intimal hyperplasia identified. However, significant calcification identified of the [place] left SFA, for example at image 516, at the distal level, the stent itself becomes substantially oval in shape. This extends into image 533. The stent seems to be patent atthis level, however, the hemodynamic significance is difficult to comment upon, if any. The left tibioperoneal trunk is patent with nonobstructive atherosclerosis identified. The left popliteal artery is patent. However, proximally, there is substantial calcification identified, for example image 60, and minimum luminal diameter at this level is approximately 2.5 mm, when compared to a relatively normal looking segment more distally of 5.2 mm there may suggest a 50% reduction in diameter.. Remainderof the left popliteal artery has no obstructive lesion appreciated. In the left lower extremity the left tibioperoneal trunk has nonobstructive calcification identified. The left anterior tibial arteryis patent, with minimal nonobstructive calcific lesion identified, and the dorsalis pedis artery is well seen. The left peroneal artery is also well seen down to level of the ankle but becomes a small calibre vessel above the ankle. The left posterior tibial artery is widely patent well seen down to level of the ankle and with focal calcification present at the takeoff of the plantar arch. In the right, the right common iliac, right external iliac, and the right common femoral artery has mixture of calcific and noncalcific atherosclerosis identified but only mild to moderate diffuse disease is present. No obstructive lesion is noted. In the distal right common iliac artery at image 294, calcification is identified minimum luminal diameter is 7.0 x 6.9 mm in diameter. In the right, the right SFA has diffuse calcification identified and not filled by contrast indicating occlusion. The substantial calcification also extends into the proximal right popliteal artery. The right profunda system has nonobstructive atherosclerosis identified. Patient is post right femoral to popliteal bypass graft, and this graft is patent, and no distal or proximal anastomotic stenosis is seen. Distal to the anastomotic site, the right popliteal artery is patent, with [id number] diffuse calcification identified with no obstructive lesion appreciated. In the right lower extremity, the right tibioperoneal trunk has eccentric nonobstructive calcification identified. The right peroneal artery is well seen down to level of the ankle. The right anterior tibial artery has severe diffuse disease/subtotal occlusionidentified extending into the dorsalis pedis artery though the distal dorsalis pedis artery is stillenhanced by contrast. The right posterior tibial artery is well seen throughout the course, and the plantar arch is seen distally. NON-VASCULAR: There are bibasal pleural effusion identified, right greater than left with associated atelectatic changes/consolidation. Coronary vasculature is prominent suggesting underlying cardiac congestion. Correlate with clinical examination. Some subsegmental atelectatic changes are seen. In the abdomen, the liver and spleen appears unremarkable. The liver edge issmooth. No abnormal enhancing structures identified. The gallbladder is not well appreciated. The pancreas appears grossly unremarkable. The adrenal glands appears unremarkable though assessment is limited. No acute renal pathology is seen and no hydronephrosis or perirenal fluid collection is identified. Overall, the kidneys appears to be somewhat small in size. In prior dictation, there is an clinical diagnosis of renal failure in the above may reflect the kidney findings. Bowel is incompletely ass essed by CT angiography as enteric contrast is not given. Assessment is limited. In the available images, no obvious bowel dilation is identified. The uterus is not present. No abnormal adnexal mass isseen. Large amount of ascites identified abdomen extending into the pelvis. No free air is seen in the abdomen and pelvis. No obvious retroperitoneal adenopathy is seen though assessment is limited. The bladder is distended. A degree of subcutaneous oedema/anasarca is identified in the abdomen and pelvis. There could be some surgical clips identified in the medial aspect of the left lower extremity at image 81. Correlate with appropriate procedure history. In the available images, no obvious wound is identified, however, this should be easily assessed clinically. Please see 3-D data set for details. An addendum will be dictated thereafter, if needed. CONCLUSIONS: 1. Atherosclerosis is identified in the abdominal aorta that is nonobstructive. No ectasia or aneurysmal dilation is seen. There is no e vidence of acute aortic pathology, specifically, there is no dissection, intramural hematoma, or contained rupture. Quantitative dimension of the abdominal aorta are as noted. 2. At the origin of the left common iliac artery, substantial calcific and noncalcific atherosclerosis is identified, with minimum luminal diameter is 3.0 x 3.6 mm when compared to reference diameter more distally of 9 mm suggesting more than 50% reduction in diameter. Remainder of the the left and the right pelvic arteries have no obstructive lesion identified though diffuse atherosclerosis is present. 3. Long stent system is identified in the left SFA that is patent. However, in the distal left SFA, the [place] artery substantial calcification identified and the stent at this level is very oval in shape, starting from image 513, extends to image 534. Hemodynamic significance is difficult to comment upon. Correlate with duplex ultrasound scan. In the proximal left popliteal artery, at image 602, a 50% reduction in diameter is identified. Thereafter remainder of the of the left popliteal artery has nonobstructive atherosclerosis identified. 4. In the right, the [place] right SFA is not filled by contrast indicating occlusion. A patent right femoral to popliteal bypass graft is identified. Distal to the bypass graft, theright popliteal artery is also patent. 5. Details of the runoff vessels as described above. 6. Otherfindings as described above. In the available images, no obvious wound is identified in the lower extremity, though an addendum will be dictated thereafter, if needed. It appears patient has end-stage renal disease. Diffuse ascites is identified. Left and right atrial enlargement is noted. Diffuse daniela nary artery calcifications identified. The central pulmonary artery is prominent with no evidence ofcentral pulmonary artery embolism present bibasal pleural effusion right greater than left. Correlate clinically. 7. An addendum will be dictated regarding the non-vascular findings by the Dyeing Machine Feeder Radiologist. Signed: Shlomo Dockery MDReport Verified Date/Time: 12/27/2019 07:59:51 Reading Location: [place] [address] CT Reading Room Protein electrophoresis, serum 2019-12-27 09:29:00 Test Item Value Reference Range Interpretation Comments Albumin Fraction (test 2.4 g/dL 3.5-5.5 L code = 405) Alpha 1 Fraction (test 0.4 g/dL 0.2-0.4 code = 389) Alpha 2 Fraction (test 0.4 g/dL 0.5-0.9 L code = 390) Beta Fraction (test code 0.8 g/dL 0.6-1.1 = 392) Gamma Globulin Fraction 2.3 g/dL 0.7-1.7 H (test code = 391) Interpretation (test Decreased albumin, code = 2615) suggestive of renal damage. Polyclonal elevation of gamma fraction, suggesting chronic inflammatory response. No monoclonal bands detected. Pathologist: (test code Rocio Galindo, = 2616) (electronic signature) Protein, Total (test 6.3 6.0- 8.3 gm/dL code = 2660) ZIA (test code = ZIA) Therapy Manager ID - LEONIE Jay Lab Interpretation (test Abnormal code = 99778-2) [facility] [id number] 09:29:00 Test Item Value Reference Range Interpretation Comments ALBUMIN FRACTION 2.4 g/dL 3.5-5.5 L (BEAKER) (test code = 405) ALPHA 1 FRACTION 0.4 g/dL 0.2-0.4 (BEAKER) (test code = 389) ALPHA 2 FRACTION 0.4 g/dL 0.5-0.9 L (BEAKER) (test code = 390) BETA FRACTION 0.8 g/dL 0.6-1.1 (BEAKER) (test code = 392) GAMMA GLOBULIN 2.3 g/dL 0.7-1.7 H FRACTION (BEAKER) (test code = 391) INTERPRETATION-119 Decreased albumin, (BEAKER) (test code = suggestive of renal 2615) damage. Polyclonal elevation of gamma fraction, suggesting chronic inflammatory response. No monoclonal bands detected. [id number] Rocio Galindo MD (BEAKER) (test code = (electronic signature) 2616) PROTEIN TOTAL SERUM, 6.3 gm/dL 6.0-8.3 SPEP (BEAKER) (test code = 6970) Therapy Manager ID - CAROLINA FCTA AAA and [id number] 07:59:00Interface, External Ris In - 12/27/2019 11:40 AM CDTAddendum BeginsREPORT STATUS:A I agree with the nonvascular findings with exceptions and emphasis as below:*Moderate right andsmall left pleural effusions are partially visualized.*Large volume ascites.*Diffuse anasarca*The reflux of contrast into the hepatic veins is concerning for volume overload. Signed: Molly Linares MDReport Verified Date/Time: 12/27/2019 11:38:28 Reading Location: [facility] Diagnostic Imaging Reading Room - [place] [address] [id number] EndsFINAL REPORT CT angiography of the abdominal aorta and runoff, 26-Dec-19 INDICATION: This is a 64 year old female with with lower leg penetrating trauma presents for assessment. TECHNIQUE: Spiral acquisition before and during intravenous contrast administration using a GE multidetector CT scanner. Images were obtained before and during the dynamic passage of intravenous contrast material. Multi-planar 3-D volume-rendering reconstruction was performed using an independent workstation interactively by the interpreting physician as well as the 3-D specialist for optimal visualisation of the abdominal aorta, pelvic arteries, and its peripheral branches. Please refer to the contrast sheet scanned in the RIS system for the amount and route of contrast given. This exam was performed according to our departmental dose-optimisation programme, which includes automated exposure control, adjustment of the mA and/or kV according to patient size and/or use of iterative reconstruction technique. Dose modulation, iterative reconstruction, and/or weight based adjustment of the mA/kV was utilized to reduce the radiation dose to as low as reasonably achievable. IRWIN DOYLE: VASCULAR: A central venous catheter is partially seen, with tip identified in the juncture of the SVC/RA. Coronary artery calcification is identified in all three coronary territories, incompletely assessed. There could be fossa stent identified in the LCx and RCA territory, again incompletely assessed. Biatrial enlargement is identified, right greater than left. The IVC is prominent. The left ventricle could be mildly prominent. There is likely subendocardial hypodensity identified in the apex, also along the lateral wall that may suggest effect of underlying coronary artery disease; correlate clinically. The central pulmonary artery is enlarged, and correlate with appropriate aetiology.No evidence of central pulmonary artery embolism is observed. The descending thoracic aorta is remarkable for mixture of calcific and noncalcific atherosclerosis. No ectasia or aneurysmal dilation is seen. The abdominal aorta is normal in course and calibre. However, I will to moderate calcification is identified, and substantial noncalcific atheroma is present. For example, at the takeoff of the SMA, the thickness of the noncalcific atherosclerotic plaque is approximately, at 6 mm image 154. Moderate atherosclerosis is identified infrarenal abdominal aorta. No obstructive lesion is visualised. No acute aortic pathology is seen including dissection or contained rupture. No ectasia or aneurysmal dilation is noted. Quantitative dimensions of the abdominal aorta are as follows: 1.9 cm at the mesenteric segment; 1.8 cm at the renal segment,; and 1.8 cm at the aortic bifurcation. At least a moderate stenosis is identified in the takeoff of the coeliac axis, at image 135, of uncertain significance in the absence of GI symptoms. The SMA has calcific and noncalcific atherosclerosis with only mild to moderate lesion present. Mild atherosclerosis is identified distally, considered nonobstructive innature. The TYLER is patent. Significant lesion is identified the origin of the takeoff of the left renal artery and remainder the right renal artery is patent. Nonobstructive atherosclerosis identifiedin the right renal artery. Significant stenosis is seen at the takeoff of the left common iliac artery substantial calcific and noncalcific atherosclerosis identified, image 262, with minimum diameter of 3.0 x 3.6 mm, when compared to average diameter of 9 mm. Remainder of the left common iliac arteryhas nonobstructive calcific and noncalcific atherosclerosis identified. The left external iliac artery has nonobstructive atherosclerosis present. Similar finding is seen in the left common femoral rudy ry. There could be either atherosclerotic ulceration/localised nonflow-limiting dissection identified in the distal left common femoral artery at image 405. In the left, long stent system is identifiedalong the majority of the pathway of the left SFA. The stent is patent, with only minimal intimal hyperplasia identified. However, significant calcification identified of the [place] left SFA, for example at image 516, at the distal level, the stent itself becomes substantially oval in shape. This extends into image 533. The stent seems to be patent at this level, however, the hemodynamic significance is difficult to comment upon, if any. The left tibioperoneal trunk is patent with nonobstructive atherosclerosis identified. The left popliteal artery is patent. However, proximally, there is substantial calcification identified, for example image 60, and minimum luminal diameter at this level is approximately 2.5 mm, when compared to a relatively normal looking segment more distally of 5.2 mm theremay suggest a 50% reduction in diameter.. Remainder of the left popliteal artery has no obstructive lesion appreciated. In the left lower extremity the left tibioperoneal trunk has nonobstructive calcification identified. The left anterior tibial artery is patent, with minimal nonobstructive calcific lesion identified, and the dorsalis pedis artery is well seen. The left peroneal artery is also well seen down to level of the ankle but becomes a small calibre vessel above the ankle. The left posterior tibial artery is widely patent well seen down to level of the ankle and with focal calcification present at the takeoff of the plantar arch. In the right, the right common iliac, right external iliac, and the right common femoral artery has mixture of calcific and noncalcific atherosclerosis identified but only mild to moderate diffuse disease is present. No obstructive lesion is noted. In the distal right common iliac artery at image 294, calcification is identified minimum luminal diameter is 7.0x 6.9 mm in diameter. In the right, the right SFA has diffuse calcification identified and not filled by contrast indicating occlusion. The substantial calcification also extends into the proximal right popliteal artery. The right profunda system has nonobstructive atherosclerosis identified. Patientis post right femoral to popliteal bypass graft, and this graft is patent, and no distal or proximal anastomotic stenosis is seen. Distal to the anastomotic site, the right popliteal artery is patent, with [id number] diffuse calcification identified with no obstructive lesion appreciated. In theright lower extremity, the right tibioperoneal trunk has eccentric nonobstructive calcification ident ified. The right peroneal artery is well seen down to level of the ankle. The right anterior tibial artery has severe diffuse disease/subtotal occlusion identified extending into the dorsalis pedis artery though the distal dorsalis pedis artery is still enhanced by contrast. The right posterior tibialartery is well seen throughout the course, and the plantar arch is seen distally. NON- VASCULAR: There are bibasal pleural effusion identified, right greater than left with associated atelectatic changes/consolidation. Coronary vasculature is prominent suggesting underlying cardiac congestion. Correlate with clinical examination. Some subsegmental atelectatic changes are seen. In the abdomen, the liver and spleen appears unremarkable. The liver edge is smooth. No abnormal enhancing structures identified. The gallbladder is not well appreciated. The pancreas appears grossly unremarkable. The adrenal glands appears unremarkable though assessment is limited. No acute renal pathology is seen and no hydr onephrosis or perirenal fluid collection is identified. Overall, the kidneys appears to be somewhat small in size. In prior dictation, there is an clinical diagnosis of renal failure in the above may reflect the kidney findings. Bowel is incompletely assessed by CT angiography as enteric contrast is not given. Assessment is limited. In the available images, no obvious bowel dilation is identified. The uterus is not present. No abnormal adnexal mass is seen. Large amount of ascites identified abdomenextending into the pelvis. No free air is seen in the abdomen and pelvis. No obvious retroperitonealadenopathy is seen though assessment is limited. The bladder is distended. A degree of subcutaneous oedema/anasarca is identified in the abdomen and pelvis. There could be some surgical clips identified in the medial aspect of the left lower extremity at image 81. Correlate with appropriate procedure history. In the available images, no obvious wound is identified, however, this should be easily assessed clinically. Please see 3-D data set for details. An addendum will be dictated thereafter, if needed. CONCLUSIONS: 1. Atherosclerosis is identified in the abdominal aorta that is nonobstructive. No ectasia or aneurysmal dilation is seen. There is no evidence of acute aortic pathology, specifically,there is no dissection, intramural hematoma, or contained rupture. Quantitative dimension of the abdominal aorta are as noted. 2. At the origin of the left common iliac artery, substantial calcific and noncalcific atherosclerosis is identified, with minimum luminal diameter is 3.0 x 3.6 mm when compared to reference diameter more distally of 9 mm suggesting more than 50% reduction in diameter. Remainder of the the left and the right pelvic arteries have no obstructive lesion identified though diffuse atherosclerosis is present. 3. Long stent system is identified in the left SFA that is patent. However, in the distal left SFA, the [place] artery substantial calcification identified and the stent atthis level is very oval in shape, starting from image 513, extends to image 534. Hemodynamic significance is difficult to comment upon. Correlate with duplex ultrasound scan. In the proximal left popliteal artery, at image 602, a 50% reduction in diameter is identified. Thereafter remainder of the of the left popliteal artery has nonobstructive atherosclerosis identified. 4. In the right, the [place] right SFA is not filled by contrast indicating occlusion. A patent right femoral to popliteal bypass graft is identified. Distal to the bypass graft, the right popliteal artery is also patent. 5. Details of the runoff vessels as described above. 6. Other findings as described above. In the available images, no obvious wound is identified in the lower extremity, though an addendum will be dictated thereafter, if needed. It appears patient has end-stage renal disease. Diffuse ascites is identified. Left and right atrial enlargement is noted. Diffuse coronary artery calcifications identified. The central pulmonary artery is prominent with no evidence of central pulmonary artery embolism present bibasal pleural effusion right greater than left. Correlate clinically. 7. An addendum will be dictated regarding the non-vascular findings by the D[employer] Feeder Radiologist. Signed: Shlomo Dockery MDReport Verified Date/Time: 12/27/2019 07:59:51 Reading Location: [place] [address] [address] Reading [facility] [id number] 06:56:00 Test Item Value Reference Range Interpretation Comments POC-GLUCOSE METER 39 mg/dL 70-110 LL : Notified RN/: TESTED (BEAKER) (test code = AT [address]LS [address]) [place] [address]: Therapy Manager/Techni artemio ID = [id number] for Anahi Sherman COMPREHENSIVE METABOLIC [id number] 06:15:00 Test Item Value Reference Range Interpretation Comments TOTAL PROTEIN 5.7 gm/dL 6.0-8.5 L (BEAKER) (test code = 770) ALBUMIN (BEAKER) 2.2 g/dL 3.5-5.0 L (test code = 1145) ALKALINE PHOSPHATASE 62 U/L 30-115 (BEAKER) (test code = 346) BILIRUBIN TOTAL 0.5 mg/dL 0.1-1.2 (BEAKER) (test code = 377) SODIUM (BEAKER) (test 136 meq/L 135-148 code = 381) POTASSIUM (BEAKER) 3.4 meq/L 3.6-5.5 L (test code = 379) CHLORIDE (BEAKER) 100 meq/L 98-106 (test code = 382) CO2 (BEAKER) (test 28 meq/L 20-29 code = 355) BLOOD UREA NITROGEN 27 mg/dL 10-26 H (BEAKER) (test code = 354) CREATININE (BEAKER) 3.42 mg/dL 0.50-1.20 H (test code = 358) GLUCOSE RANDOM 37 mg/dL 70-110 LL (BEAKER) (test code = 652) CALCIUM (BEAKER) 7.8 mg/dL 8.5-10.5 L (test code = 697) AST (SGOT) (BEAKER) 15 U/L 5-40 (test code = 353) ALT (SGPT) (BEAKER) 5 U/L 5-50 (test code = 347) EGFR (BEAKER) (test 14 mL/min/1.73 ESTIMA HINA GFR IS code = 1092) sq m NOT ACCURATE CREATININE CLEARANCE IN PREDICTING GLOMERULAR FILTRATION RATE . ESTIMATED GFR I S NOT APPLICABLE FOR DIALYSIS PATIEN TS. Therapy Manager ID - ADMINPOCT-GLUCOSE [id number] 06:01:00 Test Item Value Reference Range Interpretation Comments POC-GLUCOSE METER 55 mg/dL 70-110 L : Notified RN/MD: TESTED (BEAKER) (test code = AT SLS L [address]) [place] [address]: Therapy Manager/Techni artemio ID = [id number] for Anahi Sherman CBC W/PLT COUNT & AUTO [id number] 05:44:00 Test Item Value Reference Range Interpretation Comments WHITE BLOOD CELL COUNT (BEAKER) 6.6 K/ L 4.0-10.0 (test code = 775) RED BLOOD CELL COUNT (BEAKER) 2.73 M/ L 4.00-5.00 L (test code = 761) HEMOGLOBIN (BEAKER) (test code = 8.1 GM/DL 12.0-15.5 L 410) HEMATOCRIT (BEAKER) (test code = 26.3 % 36.0-46.0 L 411) MEAN CORPUSCULAR VOLUME (BEAKER) 96.3 fL 82.0-99.0 (test code = 753) MEAN CORPUSCULAR HEMOGLOBIN 29.7 pg 27.0-33.0 (BEAKER) (test code = 751) MEAN CORPUSCULAR HEMOGLOBIN CONC 30.8 GM/DL 32.0-36.0 L (BEAKER) (test code = 752) RED CELL DISTRIBUTION WIDTH 20.9 % 12.0-15.0 H (BEAKER) (test code = 412) PLATELET COUNT (BEAKER) (test code 95 K/CU MM 150-430 L = 756) MEAN PLATELET VOLUME (BEAKER) 10.9 fL 6.0-11.5 (test code = 754) NUCLEATED RED BLOOD CELLS (BEAKER) 1 /100 WBC 0-0 H (test code = 413) NEUTROPHILS RELATIVE PERCENT 68 % (BEAKER) (test code = 429) LYMPHOCYTES RELATIVE PERCENT 24 % (BEAKER) (test code = 430) MONOCYTES RELATIVE PERCENT 4 % (BEAKER) (test code = 431) EOSINOPHILS RELATIVE PERCENT 2 % (BEAKER) (test code = 432) BASOPHILS RELATIVE PERCENT 1 % (BEAKER) (test code = 437) NEUTROPHILS ABSOLUTE COUNT 4.50 K/ L 1.80-8.00 (BEAKER) (test code = 670) LYMPHOCYTES ABSOLUTE COUNT 1.61 K/ L 1.48-4.50 (BEAKER) (test code = 414) MONOCYTES ABSOLUTE COUNT (BEAKER) 0.26 K/ L 0.00-1.30 (test code = 415) EOSINOPHILS ABSOLUTE COUNT 0.16 K/ L 0.00-0.50 (BEAKER) (test code = 416) BASOPHILS ABSOLUTE COUNT ([facility]) 0.04 K/ L 0.00-0.20 (test code = 417) IMMATURE GRANULOCYTES-RELATIVE 1 % 0-0 H PERCENT ([facility]) (test code = 2801) POCT-GLUCOSE [id number] 21:03:00 Test Item Value Reference Range Interpretation Comments POC-GLUCOSE METER 278 mg/dL 70-110 H : Notified RN/MD: TESTED ([facility]) (test code AT [facility] [address] = [address]) [place], [place] [address]: Therapy Manager/Techni artemio ID = [id number] for Anahi Sherman POCT-GLUCOSE [id number] 16:53:00 Test Item Value Reference Range Interpretation Comments POC-GLUCOSE METER 70 mg/dL 70-110 : TESTED A T [facility] 1317 ([facility]) (test code = [address] [facility], [address]) [place] [address]: Therapy Manager/Techni artemio ID = [id number] for Nalini Jean Baptiste POCT-GLUCOSE [id number] 12:11:00 Test Item Value Reference Range Interpretation Comments POC-GLUCOSE METER 97 mg/dL 70-110 : TESTED A T [facility] 1317 ([facility]) (test code = [address] [facility], 1538) [place] [address]: Therapy Manager/Techni artemio ID = [id number] for Nalini Jean Baptiste POCT-GLUCOSE [id number] 06:21:00 Test Item Value Reference Range Interpretation Comments POC-GLUCOSE METER 71 mg/dL 70-110 : TESTED A T [facility] 1317 ([facility]) (test code = [address] [facility], 153) [place] [address]: Therapy Manager/Techni artemio ID = [id number] for Harish iuSukhdeep grahamhael COMPREHENSIVE METABOLIC [id number] 05:50:00 Test Item Value Reference Range Interpretation Comments TOTAL PROTEIN 6.1 gm/dL 6.0-8.5 ([facility]) (test code = 770) ALBUMIN ([facility]) 2.3 g/dL 3.5-5.0 L (test code = 1145) ALKALINE PHOSPHATASE 64 U/L 30-115 ([facility]) (test code = 346) BILIRUBIN TOTAL 0.7 mg/dL 0.1-1.2 (BEAKER) (test code = 377) SODIUM (BEAKER) (test 137 meq/L 135-148 code = 381) POTASSIUM (BEAKER) 3.4 meq/L 3.6-5.5 L (test code = 379) CHLORIDE (BEAKER) 101 meq/L 98-106 (test code = 382) CO2 (BEAKER) (test 27 meq/L 20-29 code = 355) BLOOD UREA NITROGEN 24 mg/dL 10-26 (BEAKER) (test code = 354) CREATININE (BEAKER) 3.05 mg/dL 0.50-1.20 H (test code = 358) GLUCOSE RANDOM 69 mg/dL 70-110 L (BEAKER) (test code = 652) CALCIUM (BEAKER) 7.7 mg/dL 8.5-10.5 L (test code = 697) AST (SGOT) (BEAKER) 16 U/L 5-40 (test code = 353) ALT (SGPT) (BEAKER) 5 U/L 5-50 (test code = 347) EGFR (BEAKER) (test 15 mL/min/1.73 ESTIMA HINA GFR IS code = 1092) sq m NOT ACCURATE CREATININE CLEARANCE IN PREDICTING GLOMERULAR FILTRATION RATE . ESTIMATED GFR I S NOT APPLICABLE FOR DIALYSIS PATIEN TS. Therapy Manager ID - ADMINCBC W/PLT COUNT & AUTO [id number] 05:17:00 Test Item Value Reference Range Interpretation Comments WHITE BLOOD CELL COUNT (BEAKER) 6.7 K/ L 4.0-10.0 (test code = 775) RED BLOOD CELL COUNT (BEAKER) 2.83 M/ L 4.00-5.00 L (test code = 761) HEMOGLOBIN (BEAKER) (test code = 8.3 GM/DL 12.0-15.5 L 410) HEMATOCRIT (BEAKER) (test code = 26.4 % 36.0-46.0 L 411) MEAN CORPUSCULAR VOLUME (BEAKER) 93.3 fL 82.0-99.0 (test code = 753) MEAN CORPUSCULAR HEMOGLOBIN 29.3 pg 27.0-33.0 (BEAKER) (test code = 751) MEAN CORPUSCULAR HEMOGLOBIN CONC 31.4 GM/DL 32.0-36.0 L (BEAKER) (test code = 752) RED CELL DISTRIBUTION WIDTH 19.7 % 12.0-15.0 H (BEAKER) (test code = 412) PLATELET COUNT (BEAKER) (test code 90 K/CU MM 150-430 L = 756) MEAN PLATELET VOLUME (BEAKER) 10.7 fL 6.0-11.5 (test code = 754) NUCLEATED RED BLOOD CELLS (BEAKER) 1 /100 WBC 0-0 H (test code = 413) NEUTROPHILS RELATIVE PERCENT 71 % (BEAKER) (test code = 429) LYMPHOCYTES RELATIVE PERCENT 21 % (BEAKER) (test code = 430) MONOCYTES RELATIVE PERCENT 4 % (BEAKER) (test code = 431) EOSINOPHILS RELATIVE PERCENT 2 % (BEAKER) (test code = 432) BASOPHILS RELATIVE PERCENT 0 % (BEAKER) (test code = 437) NEUTROPHILS ABSOLUTE COUNT 4.79 K/ L 1.80-8.00 (BEAKER) (test code = 670) LYMPHOCYTES ABSOLUTE COUNT 1.44 K/ L 1.48-4.50 L (BEAKER) (test code = 414) MONOCYTES ABSOLUTE COUNT (BEAKER) 0.28 K/ L 0.00-1.30 (test code = 415) EOSINOPHILS ABSOLUTE COUNT 0.16 K/ L 0.00-0.50 (BEAKER) (test code = 416) BASOPHILS ABSOLUTE COUNT (BEAKER) 0.03 K/ L 0.00-0.20 (test code = 417) IMMATURE GRANULOCYTES-RELATIVE 0 % 0-0 PERCENT (BEAKER) (test code = 2801) Prepare Leuko-Red [id number] 23:54:00 Test Item Value Reference Range Interpretation Comments CROSSMATCH (test code = 2264) COMPATIBLE Unit ABO (test code = O Pos 3593055) UNIT NUMBER (test code = H314089825335 934-0) Status (test code = 5748618) TX_TIMEINCHART Blood Bank Product (test code RED BLOOD CELLS = 2263) PRODUCT CODE (test code = S5290T71 933-2) [facility] [id number] 21:03:00 Test Item Value Reference Range Interpretation Comments POC-GLUCOSE METER 87 mg/dL 70-110 : TESTED A T [facility] [address] (BEAKER) (test code = [address]) [place] [address]: Therapy Manager/Techni artemio ID = [id number] for Holly Alamo POCT-GLUCOSE [id number] 17:12:00 Test Item Value Reference Range Interpretation Comments POC-GLUCOSE METER 79 mg/dL 70-110 : TESTED A T [facility] [address] (BEAKER) (test code = [address]) [place] [address]: Therapy Manager/Techni artemio ID = [id number] for Nalini Jean Baptiste POCT-GLUCOSE [id number] 11:37:00 Test Item Value Reference Range Interpretation Comments POC-GLUCOSE METER 262 mg/dL 70-110 H : TESTED A T [facility] [address] (BEAKER) (test code [address], = 15[address]) [place] [id number]: Therapy Manager/Techni artemio ID = [id number] for Nalini Jean Baptiste COMPREHENSIVE METABOLIC [id number] 06:29:00 Test Item Value Reference Range Interpretation Comments TOTAL PROTEIN 6.4 gm/dL 6.0-8.5 (BEAKER) (test code = 770) ALBUMIN (BEAKER) 2.5 g/dL 3.5-5.0 L (test code = 1145) ALKALINE PHOSPHATASE 71 U/L 30-115 (BEAKER) (test code = 346) BILIRUBIN TOTAL 0.8 mg/dL 0.1-1.2 (BEAKER) (test code = 377) SODIUM (BEAKER) (test 137 meq/L 135-148 code = 381) POTASSIUM (BEAKER) 3.5 meq/L 3.6-5.5 L (test code = 379) CHLORIDE (BEAKER) 100 meq/L 98-106 (test code = 382) CO2 (BEAKER) (test 28 meq/L 20-29 code = 355) BLOOD UREA NITROGEN 21 mg/dL 10-26 (BEAKER) (test code = 354) CREATININE (BEAKER) 2.68 mg/dL 0.50-1.20 H (test code = 358) GLUCOSE RANDOM 92 mg/dL 70-110 (BEAKER) (test code = 652) CALCIUM (BEAKER) 7.8 mg/dL 8.5-10.5 L (test code = 697) AST (SGOT) (BEAKER) 18 U/L 5-40 (test code = 353) ALT (SGPT) (BEAKER) 5 U/L 5-50 (test code = 347) EGFR (BEAKER) (test 18 mL/min/1.73 ESTIMA HINA GFR IS code = 1092) sq m NOT ACCURATE CREATININE CLEARANCE IN PREDICTING GLOMERULAR FILTRATION RATE . ESTIMATED GFR I S NOT APPLICABLE FOR DIALYSIS PATIEN TS. Therapy Manager ID - ADMINCBC W/PLT COUNT & AUTO [id number] 06:12:00 Test Item Value Reference Range Interpretation Comments WHITE BLOOD CELL COUNT (BEAKER) 7.3 K/ L 4.0-10.0 (test code = 775) RED BLOOD CELL COUNT (BEAKER) 2.97 M/ L 4.00-5.00 L (test code = 761) HEMOGLOBIN (BEAKER) (test code = 8.7 GM/DL 12.0-15.5 L 410) HEMATOCRIT (BEAKER) (test code = 28.0 % 36.0-46.0 L 411) MEAN CORPUSCULAR VOLUME (BEAKER) 94.3 fL 82.0-99.0 (test code = 753) MEAN CORPUSCULAR HEMOGLOBIN 29.3 pg 27.0-33.0 (BEAKER) (test code = 751) MEAN CORPUSCULAR HEMOGLOBIN CONC 31.1 GM/DL 32.0-36.0 L (BEAKER) (test code = 752) RED CELL DISTRIBUTION WIDTH 19.9 % 12.0-15.0 H (BEAKER) (test code = 412) PLATELET COUNT (BEAKER) (test code 99 K/CU MM 150-430 L = 756) MEAN PLATELET VOLUME (BEAKER) 9.9 fL 6.0-11.5 (test code = 754) NUCLEATED RED BLOOD CELLS (BEAKER) 1 /100 WBC 0-0 H (test code = 413) NEUTROPHILS RELATIVE PERCENT 71 % (BEAKER) (test code = 429) LYMPHOCYTES RELATIVE PERCENT 22 % (BEAKER) (test code = 430) MONOCYTES RELATIVE PERCENT 4 % (BEAKER) (test code = 431) EOSINOPHILS RELATIVE PERCENT 2 % (BEAKER) (test code = 432) BASOPHILS RELATIVE PERCENT 0 % (BEAKER) (test code = 437) NEUTROPHILS ABSOLUTE COUNT 5.20 K/ L 1.80-8.00 (BEAKER) (test code = 670) LYMPHOCYTES ABSOLUTE COUNT 1.58 K/ L 1.48-4.50 (BEAKER) (test code = 414) MONOCYTES ABSOLUTE COUNT (BEAKER) 0.32 K/ L 0.00-1.30 (test code = 415) EOSINOPHILS ABSOLUTE COUNT 0.14 K/ L 0.00-0.50 (BEAKER) (test code = 416) BASOPHILS ABSOLUTE COUNT (BEAKER) 0.03 K/ L 0.00-0.20 (test code = 417) IMMATURE GRANULOCYTES-RELATIVE 0 % 0-0 PERCENT (BEAKER) (test code = 2801) POCT-GLUCOSE [id number] 06:09:00 Test Item Value Reference Range Interpretation Comments POC-GLUCOSE METER 83 mg/dL 70-110 : Notified RN/MD: TESTED (BEAKER) (test code = AT [address]) [facility] [address]: Therapy Manager/Techni artemio ID = [id number] for Anahi Sherman POCT-GLUCOSE [id number] 16:26:00 Test Item Value Reference Range Interpretation Comments POC-GLUCOSE METER 182 mg/dL 70-110 H : Notified RN/MD: TESTED (BEAKER) [facility] [address] [address] [facility] [address] [place] [address]: Therapy Manager/Techni artemio ID = [id number] for Alondra Kelley, [id number] 09:17:00 Test Item Value Reference Range Interpretation Comments Rh Factor (test code = POS 2589) ABO Grouping (test code O PINK TOP 12/24/19 @ 08 = 2588) [facility], [id number] 07:31:00 Test Item Value Reference Range Interpretation Comments ABO/RH AUTOMATED (BEAKER) (test O POSITIVE ECHO code = 2260) Ab Scrn (test code = 890-4) NEGATIVE ECHO [facility] [id number] 06:42:00 Test Item Value Reference Range Interpretation Comments TOTAL PROTEIN 6.2 gm/dL 6.0-8.5 (BEAKER) (test code = 770) ALBUMIN (BEAKER) 2.4 g/dL 3.5-5.0 L (test code = 1145) ALKALINE PHOSPHATASE 70 U/L 30-115 (BEAKER) (test code = 346) BILIRUBIN TOTAL 0.7 mg/dL 0.1-1.2 (BEAKER) (test code = 377) SODIUM (BEAKER) (test 138 meq/L 135-148 code = 381) POTASSIUM (BEAKER) 3.5 meq/L 3.6-5.5 L (test code = 379) CHLORIDE (BEAKER) 101 meq/L 98-106 (test code = 382) CO2 (BEAKER) (test 27 meq/L 20-29 code = 355) BLOOD UREA NITROGEN 31 mg/dL 10-26 H (BEAKER) (test code = 354) CREATININE (BEAKER) 3.41 mg/dL 0.50-1.20 H (test code = 358) GLUCOSE RANDOM 93 mg/dL 70-110 (BEAKER) (test code = 652) CALCIUM (BEAKER) 8.0 mg/dL 8.5-10.5 L (test code = 697) AST (SGOT) (BEAKER) 13 U/L 5-40 (test code = 353) ALT (SGPT) (BEAKER) 3 U/L 5-50 L (test code = 347) EGFR (BEAKER) (test 14 mL/min/1.73 ESTIMA HINA GFR IS code = 1092) sq m NOT ACCURATE CREATININE CLEARANCE IN PREDICTING GLOMERULAR FILTRATION RATE . ESTIMATED GFR I S NOT APPLICABLE FOR DIALYSIS PATIEN TS. Therapy Manager ID - ADMINPOCT-GLUCOSE [id number] 06:23:00 Test Item Value Reference Range Interpretation Comments POC-GLUCOSE METER 88 mg/dL 70-110 : TESTED A T [facility] [address] (BEAKER) (test code = [address]) [facility] [place] [address]: Therapy Manager/Techni artemio ID = [id number] for Anne Busby CBC W/PLT COUNT & AUTO [id number] 06:23:00 Test Item Value Reference Range Interpretation Comments WHITE BLOOD CELL COUNT (BEAKER) 7.9 K/ L 4.0-10.0 (test code = 775) RED BLOOD CELL COUNT (BEAKER) 2.39 M/ L 4.00-5.00 L (test code = 761) HEMOGLOBIN (BEAKER) (test code = 7.1 GM/DL 12.0-15.5 L 410) HEMATOCRIT (BEAKER) (test code = 23.1 % 36.0-46.0 L 411) MEAN CORPUSCULAR VOLUME (BEAKER) 96.7 fL 82.0-99.0 (test code = 753) MEAN CORPUSCULAR HEMOGLOBIN 29.7 pg 27.0-33.0 (BEAKER) (test code = 751) MEAN CORPUSCULAR HEMOGLOBIN CONC 30.7 GM/DL 32.0-36.0 L (BEAKER) (test code = 752) RED CELL DISTRIBUTION WIDTH 20.4 % 12.0-15.0 H (BEAKER) (test code = 412) PLATELET COUNT (BEAKER) (test 111 K/CU MM 150-430 L code = 756) MEAN PLATELET VOLUME (BEAKER) 10.7 fL 6.0-11.5 (test code = 754) NUCLEATED RED BLOOD CELLS 1 /100 WBC 0-0 H (BEAKER) (test code = 413) NEUTROPHILS RELATIVE PERCENT 71 % (BEAKER) (test code = 429) LYMPHOCYTES RELATIVE PERCENT 22 % (BEAKER) (test code = 430) MONOCYTES RELATIVE PERCENT 5 % (BEAKER) (test code = 431) EOSINOPHILS RELATIVE PERCENT 2 % (BEAKER) (test code = 432) BASOPHILS RELATIVE PERCENT 0 % (BEAKER) (test code = 437) NEUTROPHILS ABSOLUTE COUNT 5.58 K/ L 1.80-8.00 (BEAKER) (test code = 670) LYMPHOCYTES ABSOLUTE COUNT 1.72 K/ L 1.48-4.50 (BEAKER) (test code = 414) MONOCYTES ABSOLUTE COUNT (BEAKER) 0.35 K/ L 0.00-1.30 (test code = 415) EOSINOPHILS ABSOLUTE COUNT 0.13 K/ L 0.00-0.50 (BEAKER) (test code = 416) BASOPHILS ABSOLUTE COUNT (BEAKER) 0.03 K/ L 0.00-0.20 (test code = 417) IMMATURE GRANULOCYTES-RELATIVE 1 % 0-0 H PERCENT (BEAKER) (test code = 2801) POCT-GLUCOSE [id number] 21:38:00 Test Item Value Reference Range Interpretation Comments POC-GLUCOSE METER 126 mg/dL 70-110 H : TESTED A T [facility] [address] (BEAKER) (test code [address], = 1538) [facility] [address]: Therapy Manager/Techni artemio ID = [id number] for Anne Busby POCT-GLUCOSE [id number] 16:54:00 Test Item Value Reference Range Interpretation Comments POC-GLUCOSE METER 89 mg/dL 70-110 : Notified RN/MD: TESTED (ROBERT) (test code = AT [address]) [place], [facility] [address]: Therapy Manager/Techni artemio ID = [id number] for Alondra Kelley MR, EXTREMITY, LOWER, JOINT, WITHOUT CONTRAST, [id number] 16:10:00Unlisted Reason for Exam - Click Yes and Enter Reason Below->NoDeos the patient have an implantedelectronic device?->NoFINAL REPORT MRI of the left hindfoot without and with intravenous contrast History: Radiograph dated December 20, 2019 Comparison: Radiograph dated December 20, 2019 Technique: Multiplanar multisequence MRI of the left hindfoot was performed without and with intravenous contrast using the hindfoot osteomyelitis protocol Findings: There is no fracture, or malalignment. Mild to moderate degenerative changes are seen in the hindfoot and midfoot, with large osteophyte formationat the talonavicular joint. No marrow replacing process or cortical erosion is identified. There is no significant joint effusion. There is diffuse soft tissue edema at the ankle, but no loculated collection is identified on this noncontrast exam. The extensor, flexor, peroneal and Achilles tendons are intact. There is a small amount of fluid around the flexor hallucis longus tendon. The anterior andposterior tibiofibular, talofibular ligaments are intact. Deltoid ligament is also intact. IMPRESSION: No evidence of osteomyelitis in the hindfoot. Diffuse soft tissue edema, no drainable collection is identified. Signed: Margot Jordanort Verified Date/Time: 12/23/2019 16:10:32 Reading Location: [facility] B1 [id number] Ortho Consult Reading Room MR lower extremity joint only without IV contrast left [id number] 16:10:00Interface, External Ris In - 12/23/2019 4:12 PM CDTFINAL REPORT MRI of the left hindfoot without and with intravenous contrast History: Radiograph dated December 20, 2019 Comparison: Radiograph dated December 20, 2019 Technique: Multiplanar multisequence MRI of the left hindfoot was performed without and with intravenous contrast using the hindfoot osteomyelitis protocol Findings: There is no fracture, or malalignment. Mild to moderate degenerative changes are seen in the hindfoot and midfoot, with large osteophyte formation at the talonavicular joint. No marrow replacing process or cortical erosion is identified. There is no significant joint effusion. There is diffuse soft tissue edema at the ankle, but no loculated collection is identified on this noncontrast exam. The extensor, flexor, peroneal and Achilles tendons are intact. There is a small amount of fluid aroundthe flexor hallucis longus tendon. The anterior and posterior tibiofibular, talofibular ligaments are intact. Deltoid ligament is also intact. IMPRESSION: No evidence of osteomyelitis in the hindfoot. Diffuse soft tissue edema, no drainable collection is identified. Signed: Margot Jordan MDReport Verified Date/Time: 12/23/2019 16:10:32 Reading Location: [address] Ortho Consult [facility] [id number] 15:43:00Unlisted Reason for Exam - Click Yes and Enter Reason Below->NoFINAL REPORT MR, BRAIN, WITHOUT CONTRAST INDICATION: Headache, post traumatic TECHNIQUE: Multiplanar, multisequence MR imaging of the brain without intravenous contrast. COMPARISON: CT 12/20/2019 FINDINGS: Intracranial: No acute intracranial hemorrhage. No restricted diffusion to suggest acute infarct. No mass effect. No hydrocephalus. Visualized intracranial flow voids are of normal course and caliber. Mild generalized cerebral volume loss. Scattered foci of T2 prolongation within the periventricular and subcortical white matter are a nonspecific finding commonly attributed to chronic small vessel ischemic disease. Sinuses: No evidence of sinusitis. Mastoids are clear. Orbits: Globes are intact. Calvarium \\T\\ scalp: Unremarkable. IMPRESSION:No acute intracranial abnormality. Signed: Berta Muniz MDReport Verified Date/Time: 12/23/2019 15:43:24 MR brain without IV [id number] 15:43:00Interface, External Ris In - 12/23/2019 3:45 PM CDTFINAL REPORT MR, BRAIN, WI THOUT CONTRAST INDICATION: Headache, post traumatic TECHNIQUE: Multiplanar, multisequence MR imagingof the brain without intravenous contrast. COMPARISON: CT 12/20/2019 FINDINGS: Intracranial: No acute intracranial hemorrhage. No restricted diffusion to suggest acute infarct. No mass effect. No hydrocephalus. Visualized intracranial flow voids are of normal course and caliber. Mild generalized cerebral volume loss. Scattered foci of T2 prolongation within the periventricular and subcortical white matter are a nonspecific finding commonly attributed to chronic small vessel ischemic disease. Sinuses: No evidence of sinusitis. Mastoids are clear. Orbits: Globes are intact. Calvarium \\T\\ scalp: Unremarkable. IMPRESSION:No acute intracranial abnormality. Signed: Berta Muniz MDReport Verified Date/Time: 12/23/2019 15:43:24 [facility]2019-12-23 14:16:00 Test Item Value Reference Range Interpretation Comments SARS-COV2/RT-PCR (test Negative Not Detected, Negative, code = 2996944) See external report for linked test SARS-COV-2 PERFORMING LAB [facility] (test code = 6373140) Negative result for this test determines that SARS-CoV-2 RNA was not present in the specimen above the Limit of Detection (LOD). However, Negative results do not preclude SARS-CoV-2 infection and should not be used as the sole basis for treatment or patient management decisions. Negative results mustbe combined with clinical observations, patient history, and epidemiological information. A false negative result may occur if a specimen is improperly collected, transported or handled. A false negative result should be considered if patient's recent exposures or clinical presentation indicate that COVID-19 (SARS-CoV-2) is likely and diagnostic tests for other causes of illness are negative. Re-testing should be considered in cases of suspected false negatives.The limit of detection for this assay is 800 copies/mL.This SARS CoV-2 test is a real-time RT-PCR test intended for the qualitative detection of nucleic acid from SARS-CoV-2 in a nasopharyngeal swab specimen collected from individuals susp ected of COVID-19 by their healthcare provider.This test has not been Food and Drug Administration (FDA) cleared or approved. This is a modified version of an approved [...] is revoked under Section 564(g) of the Act.Fact Sheet for Healthcare Providers:https://www.[employer]/sites/default/files/product/documents/Fact_Shee s_VF_Vgitjgede_Ibcz_EWPZ-SoU-2.pdfFact Sheet for Healthcare Patients:https://www.[employer]/sites/default/files/product/ documents/Hlmz_Yumay_Vmyeaghs_Fyss_WTMP-EyL-6.pdfPerforming Laboratory:[facility], [place] [address]Szswc / lambda light chains, [id number] 12:25:00 Test Item Value Reference Interpretation Comments Range [place] Lt Chain,Free 474.4 mg/L 3.3-19.4 H (test code = 32032-2) Lambda Lt 225.6 mg/L 5.7-26.3 H Chain,Free (test code = 99597-3) [place]/Lambda,Free 2.1 0.26-1.65 H Free annabelle a/lambda (test code = ratio in serum of 2328648) normal individu als is 0.26-1.65. Excessproductio n of free kappa or l ambda chains can alte r this ratio. Monoclon alfree light chains ar e found in serum of pat ients with multiple myeloma,Waldens trom's macroglobulinem ia, mu-heavy chain disease, primary amyloidosis,lig ht chain deposition dise ase, monoclonal gamm opathy of undeterminedsig nificanc e, and lymphoprolifera tive disorders. Jesús urement of free lightch ain concentration i n serum is useful for diagnosis, prog nosis, monitoringdisea se activity and fo llowing response to the rapy of these disorders . ZIA (test code = Performing Lab ZIA) [facility] [address] [place] [address] Jaguar Stein MD, PhD, CORI Lab Interpretation Abnormal (test code = 71539-4) [facility] [id number] 11:27:00 Test Item Value Reference Range Interpretation Comments POC-GLUCOSE METER 189 mg/dL 70-110 H : Notified RN/MD: TESTED (BEAKER) (test code AT [address] = 1538) [facility] [address]: Therapy Manager/Techni artemio ID = [id number] for Alondra Kelley ARTERIAL DOPPLER LEGS, [id number] 11:22:00Reason for exam:->non healing ulcer , non palpable pulsesFINAL REPORT EXAM: Bilateral Lower Extremity Arterial Ultrasound HISTORY: nonhealing ulcer , non palpable pulses COMPARISON: None. TECHNIQUE: 2-D, color and spectral Doppler waveform imaging was performed. FINDINGS: The lower extremity arterial structures demonstrate triphasicflow throughout, except as noted below. No evidence of elevated velocities, except as noted below. No flow discontinuity, except as noted below. The velocities below are in centimeters per second. RIGHT :Common femoral artery - 97 Superficial femoral artery proximal - 65mid - 68distal - 42 Popliteal artery - 69Posterior tibial artery - 111Anterior tibial artery - 48, monophasicPeroneal artery - 40, monophasic LEFT:Common femoral artery - 109, biphasic, with an echogenic stent Superficial femoral artery, biphasic, containing an echogenic stentproximal - 134mid - 120distal - 96 Popliteal artery - 80Posterior tibial artery - 74, monophasicAnterior tibial artery - 65, monophasicPeroneal artery - 56, monophasic IMPRESSION: Bilateral below the knee moderate to severe peripheral arterial disease. Signed:Luis Alberto Monahaneport Verified Date/Time: 12/23/2019 11:22:31 Reading Location: [facility] Radiology Reading Room Arterial Doppler Legs [id number] 11:22:00 Interface, External Ris In - 12/23/2019 11:24 AM CDTFINAL REPORT EXAM: Bilateral Lower Extremity Arterial Ultrasound HISTORY: non healing ulcer , non palpable pulses COMPARISON: None. TECHNIQUE: 2-D, color and spectral Doppler waveform imaging was performed. FINDINGS: The lowerextremity arterial structures demonstrate triphasic flow throughout, except as noted below. No evidence of elevated velocities, except as noted below. No flow discontinuity, except as noted below. The velocities below are in centimeters per second. RIGHT:Common femoral artery - 97 Superficial femoral artery proximal - 65mid - 68distal - 42 Popliteal artery - 69Posterior tibial artery - 111Anterior tibial artery - 48, monophasicPeroneal artery - 40, monophasic LEFT:Common femoral artery - 109, biphasic, with an echogenic stent Superficial femoral artery, biphasic, containing an echogenic stentproximal - 134mid - 120distal - 96 Popliteal artery - 80Posterior tibial artery - 74, monophasicAnterior tibial artery - 65, monophasicPeroneal artery - 56, monophasic IMPRESSION: Bilateral below the knee moderate to severe peripheral arterial disease. Signed: Luis Alberto Monahan MDReport Verified Date/Time: 12/23/2019 11:22:31 Reading Location: [facility] Radiology Reading Room [facility] [id number] 04:44:00 Test Item Value Reference Range Interpretation Comments TOTAL PROTEIN 6.3 gm/dL 6.0-8.5 (BEAKER) (test code = 770) ALBUMIN (BEAKER) 2.4 g/dL 3.5-5.0 L (test code = 1145) ALKALINE PHOSPHATASE 75 U/L 30-115 (BEAKER) (test code = 346) BILIRUBIN TOTAL 0.6 mg/dL 0.1-1.2 (BEAKER) (test code = 377) SODIUM (BEAKER) (test 137 meq/L 135-148 code = 381) POTASSIUM (BEAKER) 3.2 meq/L 3.6-5.5 L (test code = 379) CHLORIDE (BEAKER) 100 meq/L 98-106 (test code = 382) CO2 (BEAKER) (test 28 meq/L 20-29 code = 355) BLOOD UREA NITROGEN 28 mg/dL 10-26 H (BEAKER) (test code = 354) CREATININE (BEAKER) 2.86 mg/dL 0.50-1.20 H (test code = 358) GLUCOSE RANDOM 100 mg/dL 70-110 (BEAKER) (test code = 652) CALCIUM (BEAKER) 8.0 mg/dL 8.5-10.5 L (test code = 697) AST (SGOT) (BEAKER) 14 U/L 5-40 (test code = 353) ALT (SGPT) (BEAKER) 4 U/L 5-50 L (test code = 347) EGFR (BEAKER) (test 17 mL/min/1.73 ESTIMA HINA GFR IS code = 1092) sq m NOT ACCURATE CREATININE CLEARANCE IN PREDICTING GLOMERULAR FILTRATION RATE . ESTIMATED GFR I S NOT APPLICABLE FOR DIALYSIS PATIEN TS. Therapy Manager ID - ADMINCBC W/PLT COUNT & AUTO [id number] 04:35:00 Test Item Value Reference Range Interpretation Comments WHITE BLOOD CELL COUNT (BEAKER) 7.4 K/ L 4.0-10.0 (test code = 775) RED BLOOD CELL COUNT (BEAKER) 2.53 M/ L 4.00-5.00 L (test code = 761) HEMOGLOBIN (BEAKER) (test code = 7.4 GM/DL 12.0-15.5 L 410) HEMATOCRIT (BEAKER) (test code = 24.1 % 36.0-46.0 L 411) MEAN CORPUSCULAR VOLUME (BEAKER) 95.3 fL 82.0-99.0 (test code = 753) MEAN CORPUSCULAR HEMOGLOBIN 29.2 pg 27.0-33.0 (BEAKER) (test code = 751) MEAN CORPUSCULAR HEMOGLOBIN CONC 30.7 GM/DL 32.0-36.0 L (BEAKER) (test code = 752) RED CELL DISTRIBUTION WIDTH 20.4 % 12.0-15.0 H (BEAKER) (test code = 412) PLATELET COUNT (BEAKER) (test 111 K/CU MM 150-430 L code = 756) MEAN PLATELET VOLUME (BEAKER) 10.4 fL 6.0-11.5 (test code = 754) NUCLEATED RED BLOOD CELLS 1 /100 WBC 0-0 H (BEAKER) (test code = 413) NEUTROPHILS RELATIVE PERCENT 72 % (BEAKER) (test code = 429) LYMPHOCYTES RELATIVE PERCENT 21 % (BEAKER) (test code = 430) MONOCYTES RELATIVE PERCENT 4 % (BEAKER) (test code = 431) EOSINOPHILS RELATIVE PERCENT 2 % (BEAKER) (test code = 432) BASOPHILS RELATIVE PERCENT 0 % (BEAKER) (test code = 437) NEUTROPHILS ABSOLUTE COUNT 5.31 K/ L 1.80-8.00 (BEAKER) (test code = 670) LYMPHOCYTES ABSOLUTE COUNT 1.52 K/ L 1.48-4.50 (BEAKER) (test code = 414) MONOCYTES ABSOLUTE COUNT (BEAKER) 0.32 K/ L 0.00-1.30 (test code = 415) EOSINOPHILS ABSOLUTE COUNT 0.13 K/ L 0.00-0.50 (BEAKER) (test code = 416) BASOPHILS ABSOLUTE COUNT (BEAKER) 0.03 K/ L 0.00-0.20 (test code = 417) IMMATURE GRANULOCYTES-RELATIVE 1 % 0-0 H PERCENT (BEAKER) (test code = 2801) [id number] 04:29:00 Test Item Value Reference Range Interpretation Comments Ammonia (test code = 36 17- 80 mol/L 21732-4) ZIA (test code = ZIA) Therapy Manager ID - ADMIN Lab Interpretation (test Normal code = 67614-7) [facility]AM[facility]IA[facility] 04:29:00 Test Item Value Reference Range Interpretation Comments AMMONIA (BEAKER) (test code = 348) 36 mol/L 17-80 Therapy Manager ID - ADMINPOCT-GLUCOSE [id number] 20:45:00 Test Item Value Reference Range Interpretation Comments POC-GLUCOSE METER 95 mg/dL 70-110 : TESTED A T [address] (BEAKER) (test code = [address], 1538) [facility] [address]: Therapy Manager/Techni artemio ID = [id number] for Anne Busby POCT-GLUCOSE [id number] 17:08:00 Test Item Value Reference Range Interpretation Comments POC-GLUCOSE METER 107 mg/dL 70-110 : TESTED A T [address] (BEAKER) (test code [address], = 1538) [place] [address]: Therapy Manager/Techni artemio ID = [id number] for Jordyn Fonseca POCT-GLUCOSE [id number] 11:55:00 Test Item Value Reference Range Interpretation Comments POC-GLUCOSE METER 135 mg/dL 70-110 H : TESTED A T [address] (BEAKER) (test code [address], = 1538) [place] [address]: Therapy Manager/Techni artemio ID = [id number] for Jrodyn Fonseca Anti-Nuclear Antibody (ROGER)2019-12-22 11:40:00 Test Item Value Reference Range Interpretation Comments ROGER (test code = 20949-1) Positive Negative A ZIA (test code = ZIA) Test performed by IFA method. Lab Interpretation (test Abnormal code = 81864-2) [facility]ANA Titer & [id number] 11:40:00 Test Item Value Reference Range Interpretation Comments ROGER Titer (test code = 07940-8) 1:40 ROGER Pattern (test code = 1781) Speckled [facility]ANTI[facility]NUCLEAR ANTIBODY (ROGER)2019-12-22 11:40:00 Test Item Value Reference Range Interpretation Comments ANTI-NUCLEAR ANTIBODY (ROGER) (BEAKER) Positive Negative A (test code = 418) Test performed by IFA method.ROGER TITER AND [id number] 11:40:00 Test Item Value Reference Range Interpretation Comments ROGER TITER (BEAKER) (test code = :40 1541) ROGER PATTERN (BEAKER) (test code = Speckled 1781) POCT-GLUCOSE [id number] 06:44:00 Test Item Value Reference Range Interpretation Comments POC-GLUCOSE METER 92 mg/dL 70-110 : TESTED A T [address] (BEAKER) (test code = [address], 1538) [place] [address]: Therapy Manager/Techni artemio ID = [id number] for Anne Busby COMPREHENSIVE METABOLIC [id number] 06:35:00 Test Item Value Reference Range Interpretation Comments TOTAL PROTEIN 6.3 gm/dL 6.0-8.5 (BEAKER) (test code = 770) ALBUMIN (BEAKER) 2.3 g/dL 3.5-5.0 L (test code = 1145) ALKALINE PHOSPHATASE 69 U/L 30-115 (BEAKER) (test code = 346) BILIRUBIN TOTAL 0.6 mg/dL 0.1-1.2 (BEAKER) (test code = 377) SODIUM (BEAKER) (test 138 meq/L 135-148 code = 381) POTASSIUM (BEAKER) 3.7 meq/L 3.6-5.5 (test code = 379) CHLORIDE (BEAKER) 100 meq/L 98-106 (test code = 382) CO2 (BEAKER) (test 27 meq/L 20-29 code = 355) BLOOD UREA NITROGEN 41 mg/dL 10-26 H (BEAKER) (test code = 354) CREATININE (BEAKER) 3.58 mg/dL 0.50-1.20 H (test code = 358) GLUCOSE RANDOM 88 mg/dL 70-110 (BEAKER) (test code = 652) CALCIUM (BEAKER) 8.2 mg/dL 8.5-10.5 L (test code = 697) AST (SGOT) (BEAKER) 14 U/L 5-40 (test code = 353) ALT (SGPT) (BEAKER) 6 U/L 5-50 (test code = 347) EGFR (BEAKER) (test 13 mL/min/1.73 ESTIMA HINA GFR IS code = 1092) sq m NOT ACCURATE CREATININE CLEARANCE IN PREDICTING GLOMERULAR FILTRATION RATE . ESTIMATED GFR I S NOT APPLICABLE FOR DIALYSIS PATIEN TS. Therapy Manager ID - ADMINCBC W/PLT COUNT & AUTO [id number] 06:16:00 Test Item Value Reference Range Interpretation Comments WHITE BLOOD CELL COUNT (BEAKER) 7.0 K/ L 4.0-10.0 (test code = 775) RED BLOOD CELL COUNT (BEAKER) 2.67 M/ L 4.00-5.00 L (test code = 761) HEMOGLOBIN (BEAKER) (test code = 7.8 GM/DL 12.0-15.5 L 410) HEMATOCRIT (BEAKER) (test code = 25.7 % 36.0-46.0 L 411) MEAN CORPUSCULAR VOLUME (BEAKER) 96.3 fL 82.0-99.0 (test code = 753) MEAN CORPUSCULAR HEMOGLOBIN 29.2 pg 27.0-33.0 (BEAKER) (test code = 751) MEAN CORPUSCULAR HEMOGLOBIN CONC 30.4 GM/DL 32.0-36.0 L (BEAKER) (test code = 752) RED CELL DISTRIBUTION WIDTH 20.2 % 12.0-15.0 H (BEAKER) (test code = 412) PLATELET COUNT (BEAKER) (test 110 K/CU MM 150-430 L code = 756) MEAN PLATELET VOLUME (BEAKER) 11.0 fL 6.0-11.5 (test code = 754) NUCLEATED RED BLOOD CELLS 1 /100 WBC 0-0 H (BEAKER) (test code = 413) NEUTROPHILS RELATIVE PERCENT 71 % (BEAKER) (test code = 429) LYMPHOCYTES RELATIVE PERCENT 21 % (BEAKER) (test code = 430) MONOCYTES RELATIVE PERCENT 5 % (BEAKER) (test code = 431) EOSINOPHILS RELATIVE PERCENT 2 % (BEAKER) (test code = 432) BASOPHILS RELATIVE PERCENT 1 % (BEAKER) (test code = 437) NEUTROPHILS ABSOLUTE COUNT 4.99 K/ L 1.80-8.00 (BEAKER) (test code = 670) LYMPHOCYTES ABSOLUTE COUNT 1.45 K/ L 1.48-4.50 L (BEAKER) (test code = 414) MONOCYTES ABSOLUTE COUNT (BEAKER) 0.35 K/ L 0.00-1.30 (test code = 415) EOSINOPHILS ABSOLUTE COUNT 0.11 K/ L 0.00-0.50 (BEAKER) (test code = 416) BASOPHILS ABSOLUTE COUNT (BEAKER) 0.04 K/ L 0.00-0.20 (test code = 417) IMMATURE GRANULOCYTES-RELATIVE 1 % 0-0 H PERCENT (BEAKER) (test code = 2801) POCT-GLUCOSE [id number] 20:38:00 Test Item Value Reference Range Interpretation Comments POC-GLUCOSE METER 85 mg/dL 70-110 : [facility] (BE[facility]ER[facility] (test code = [address], [address]38) [facility] [address]: Therapy Manager/Techni artemio ID = [id number] for Anne Busby POCT-GLUCOSE [id number] 18:14:00 Test Item Value Reference Range Interpretation Comments POC-GLUCOSE METER 112 mg/dL 70-110 H : TESTED A T [address] (BEAKER) (test code [address], = 1538) [place] [address]: Therapy Manager/Techni artemio ID = [id number] for Christina r, Berta POCT-GLUCOSE [id number] 13:00:00 Test Item Value Reference Range Interpretation Comments POC-GLUCOSE METER 77 mg/dL 70-110 : TESTED A T [address] (BEAKER) (test code = [address], 1538) [place] [address]: Therapy Manager/Techni artemio ID = [id number] for Christina r, Berta POCT-GLUCOSE [id number] 07:32:00 Test Item Value Reference Range Interpretation Comments POC-GLUCOSE METER 60 mg/dL 70-110 L : TESTED A T [address] (BEAKER) (test code = [address], 1538) [place] [address] 478: Therapy Manager/Techni artemio ID = [id number] for Marissa Page COMPREHENSIVE METABOLIC [id number] 06:11:00 Test Item Value Reference Range Interpretation Comments TOTAL PROTEIN 6.6 gm/dL 6.0-8.5 (BEAKER) (test code = 770) ALBUMIN (BEAKER) 2.5 g/dL 3.5-5.0 L (test code = 1145) ALKALINE PHOSPHATASE 74 U/L 30-115 (BEAKER) (test code = 346) BILIRUBIN TOTAL 0.7 mg/dL 0.1-1.2 (BEAKER) (test code = 377) SODIUM (BEAKER) (test 139 meq/L 135-148 code = 381) POTASSIUM (BEAKER) 3.9 meq/L 3.6-5.5 (test code = 379) CHLORIDE (BEAKER) 100 meq/L 98-106 (test code = 382) CO2 (BEAKER) (test 28 meq/L 20-29 code = 355) BLOOD UREA NITROGEN 36 mg/dL 10-26 H (BEAKER) (test code = 354) CREATININE (BEAKER) 3.04 mg/dL 0.50-1.20 H (test code = 358) GLUCOSE RANDOM 57 mg/dL 70-110 L (BEAKER) (test code = 652) CALCIUM (BEAKER) 8.1 mg/dL 8.5-10.5 L (test code = 697) AST (SGOT) (BEAKER) 15 U/L 5-40 (test code = 353) ALT (SGPT) (BEAKER) 5 U/L 5-50 (test code = 347) EGFR (BEAKER) (test 15 mL/min/1.73 ESTIMA HINA GFR IS code = 1092) sq m NOT ACCURATE CREATININE CLEARANCE IN PREDICTING GLOMERULAR FILTRATION RATE . ESTIMATED GFR I S NOT APPLICABLE FOR DIALYSIS PATIEN TS. Therapy Manager ID - ADMINC-Reactive [id number] 06:06:00 Test Item Value Reference Range Interpretation Comments CRP (test code = 676) 1.63 mg/dL 0-0.5 H ZIA (test code = ZIA) Therapy Manager ID - ADMIN Lab Interpretation (test Abnormal code = 79219-2) [facility] [id number] 06:06:00 Test Item Value Reference Range Interpretation Comments C-REACTIVE PROTEIN (BEAKER) (test 1.63 mg/dL 0.00-0.50 H code = 676) Therapy Manager ID - ADMINPOCT-GLUCOSE [id number] 06:04:00 Test Item Value Reference Range Interpretation Comments POC-GLUCOSE METER 56 mg/dL 70-110 L : Notified RN/MD: TESTED (BEAKER) (test code = [address]) [facility] [address]: Therapy Manager/Techni artemio ID = [id number] for Nelda Abdi CBC W/PLT COUNT & AUTO [id number] 05:53:00 Test Item Value Reference Range Interpretation Comments WHITE BLOOD CELL COUNT (BEAKER) 6.3 K/ L 4.0-10.0 (test code = 775) RED BLOOD CELL COUNT (BEAKER) 2.55 M/ L 4.00-5.00 L (test code = 761) HEMOGLOBIN (BEAKER) (test code = 7.7 GM/DL 12.0-15.5 L 410) HEMATOCRIT (BEAKER) (test code = 25.2 % 36.0-46.0 L 411) MEAN CORPUSCULAR VOLUME (BEAKER) 98.8 fL 82.0-99.0 (test code = 753) MEAN CORPUSCULAR HEMOGLOBIN 30.2 pg 27.0-33.0 (BEAKER) (test code = 751) MEAN CORPUSCULAR HEMOGLOBIN CONC 30.6 GM/DL 32.0-36.0 L (BEAKER) (test code = 752) RED CELL DISTRIBUTION WIDTH 20.6 % 12.0-15.0 H (BEAKER) (test code = 412) PLATELET COUNT (BEAKER) (test code 94 K/CU MM 150-430 L = 756) MEAN PLATELET VOLUME (BEAKER) 11.4 fL 6.0-11.5 (test code = 754) NUCLEATED RED BLOOD CELLS (BEAKER) 2 /100 WBC 0-0 H (test code = 413) NEUTROPHILS RELATIVE PERCENT 63 % (BEAKER) (test code = 429) LYMPHOCYTES RELATIVE PERCENT 28 % (BEAKER) (test code = 430) MONOCYTES RELATIVE PERCENT 6 % (BEAKER) (test code = 431) EOSINOPHILS RELATIVE PERCENT 2 % (BEAKER) (test code = 432) BASOPHILS RELATIVE PERCENT 1 % (BEAKER) (test code = 437) NEUTROPHILS ABSOLUTE COUNT 4.00 K/ L 1.80-8.00 (BEAKER) (test code = 670) LYMPHOCYTES ABSOLUTE COUNT 1.74 K/ L 1.48-4.50 (BEAKER) (test code = 414) MONOCYTES ABSOLUTE COUNT (BEAKER) 0.37 K/ L 0.00-1.30 (test code = 415) EOSINOPHILS ABSOLUTE COUNT 0.13 K/ L 0.00-0.50 (BEAKER) (test code = 416) BASOPHILS ABSOLUTE COUNT (BEAKER) 0.03 K/ L 0.00-0.20 (test code = 417) IMMATURE GRANULOCYTES-RELATIVE 1 % 0-0 H PERCENT (BEAKER) (test code = 2801) U/S, ABDOMINAL, [id number] 22:02:00Reason for exam:->thrombocytopenia / eval for hepatosplenomegalyFINAL REPORT INDICATION: thrombocytopenia / eval for hepatosplenomegaly COMPARISON: None. TECHNIQUE: Real-time transabdominal valencia scale and color Doppler ultrasound of the abdomen. FINDINGS:Liver: Size: 14.3 cm. Echogenicity: Heterogeneous Masses/lesions: None. Intrahepatic bile ducts: Normal. Common bile duct: 0.7 cm. MPV: 1.0 cm. Gallbladder: Bowel noted within the gallbladder fossa. The gallbladder is not identified. Pancreas: Head and uncinate process: Not well visualized due to overlying bowel gas. Body and tail: Not well- seen. Spleen: Size: 11.8 x 4.8 x 4.0 cm. Echogenicity: Unremarkable. Right kidney: Size: 11.0 x 4.4 x 1.4 cm. Parenchyma: Increased echogenicity. No cysts. No stones. Hydronephrosis: None. Left kidney: Size: 11.3 x 4.5 x 1.3 cm. Parenchyma: Increased echogenicity. No cysts. No stones. Hydronephrosis: None. Ascites: Present. Regional Vasculature: The visible abdominal aorta, IVC and hepatic veins are patent. Additional findings: Right pleural effusion present. IMPRESSION: Ascites. The gallbladder is not visualized. No hepatosplenomegaly. The pancreas is not well-visualized. In creased renal echogenicity is a nonspecific finding but can be seen with medical renal disease. Signed: Hever Marin MDReport Verified Date/Time: 12/20/2019 22:02:21 US abdomen [id number] 22:02:00Interface, External Ris In - 12/20/2019 10:04 PM CDTFINAL REPORT INDICATION: t hrombocytopenia / eval for hepatosplenomegaly COMPARISON: None. TECHNIQUE: Real-time transabdominalgray scale and color Doppler ultrasound of the abdomen. FINDINGS:Liver: Size: 14.3 cm. Echogenicity: Heterogeneous Masses/lesions: None. Intrahepatic bile ducts: Normal. Common bile duct: 0.7 cm. MPV: 1.0 cm. Gallbladder: Bowel noted within the gallbladder fossa. The gallbladder is not identified. Pancreas: Head and uncinate process: Not well visualized due to overlying bowel gas. Body and tail: Not well- seen. Spleen: Size: 11.8 x 4.8 x 4.0 cm. Echogenicity: Unremarkable. Right kidney: Size: 11.0 x 4.4 x 1.4 cm. Parenchyma: Increased echogenicity. No cysts. No stones. Hydronephrosis: None. Left kidney: Size: 11.3 x 4.5 x 1.3 cm. Parenchyma: Increased echogenicity. No cysts. No stones. Hydronephrosis: None. Ascites: Present. Regional Vasculature: The visible abdominal aorta, IVC and hepatic veins are patent. Additional findings: Right pleural effusion present. IMPRESSION: Ascites. The gallbladder is not visualized. No hepatosplenomegaly. The pancreas is not well-visualized. Increased renal echogenicity is a nonspecific finding but can be seen with medical renal disease. Signed: Hever Marin MDReport Verified Date/Time: 12/20/2019 22:02:21 [facility] [id number] 20:36:00 Test Item Value Reference Range Interpretation Comments POC-GLUCOSE METER 74 mg/dL 70-110 : Notified RN/MD: TESTED (BEAKER) (test code = [address]) [facility] [address]: Therapy Manager/Techni artemio ID = [id number] for Nelda Abdi POCT-GLUCOSE [id number] 17:50:00 Test Item Value Reference Range Interpretation Comments POC-GLUCOSE METER 72 mg/dL 70-110 : TESTED A T [address] (BEAKER) (test code = [address] [facility], 1538) [facility] 77 478: Therapy Manager/Techni artemio ID = [id number] for Berta Servin CT, BRAIN, WITHOUT [id number] 16:08:00Unlisted Reason for Exam - Click Yes and Enter Reason Below->NoFINAL REPORT CT, BRAIN, WITHOUT CONTRAST INDICATION: Head trauma, abnormal mental status (Age 19-64y) TECHNIQUE: Noncontrast axial imaging was obtained from the vertex to the skull base. Axial images were reconstructed using a bone algorithm. DOSE REDUCTION: Dose modulation, iterative reconstruction, and/or weight-based adjustment of the mA/kV was utilized to reduce the radiation dose to as low as reasonably achievable. COMPARISON: None. FINDINGS: Intracranial: No intracranialhemorrhage or abnormal extra-axial collection. No evidence of acute territorial infarct. No mass effect. No hydrocephalus. Osseous structures: No fracture. No suspicious lesion. Left frontal scalp hematoma. Paranasal sinuses and mastoid air cells: No evidence of sinusitis. Mastoids are clear. Orbital contents: Globes are intact. IMPRESSION: Left frontal scalp hematoma without underlying fracture or acute intracranial hemorrhage. If there is persistent clinical concern for intracranial pathology, MR examination is recommended for further characterization. Signed: Berta Muniz Verified Date/Time: 12/20/2019 16:08:40 CT brain without IV [id number] 16:08:00Interface, External Ris In - 12/20/2019 4:[address], BRAIN, WITHOUT CONTRAST INDICATION: Head trauma, abnormal mental status (Age 19- 64y) TECHNIQUE: Noncontrast axial imaging was obtained from the vertex to the skull base. Axial images were reconstructed using a bone algorithm. DOSE REDUCTION: Dose modulation, iterative reconstruction, and/or weight-based adjustment of the mA/kV was utilized to reduce the radiation dose to as low as reasonably achievable. COMPARISON: None. FINDINGS: Intracranial: No intracranial hemorrhage or abnormal extra-axial collection. No evidence of acute territorial infarct. No mass effect. No hydrocephalus. Osseous structures: No fracture. No suspicious lesion. Left frontal scalp hematoma. Paranasal sinuses and mastoid air cells: Noevidence of sinusitis. Mastoids are clear. Orbital contents: Globes are intact. IMPRESSION: Left frontal scalp hematoma without underlying fracture or acute intracranial hemorrhage. If there is persistent clinical concern for intracranial pathology, MR examination is recommended for further characteriz ation. Signed: Berta Muniz Verified Date/Time: 12/20/2019 16:08:40 [facility], 2 VIEWS, [id number] 15:15:00Reason for exam:->Rule out osteomyelitisShould this be performed at the bedside?->Yes FINAL REPORT TECHNIQUE: Two views of the right foot and two views of left foot HISTORY: Rule out osteomyelitis. COMPARISON: None. IMPRESSION:Right foot:Limited views.No acute displaced fracture or dislocation. Mild scattered joint space narrowing.0.8 cm linear metallic density in the plantar soft tissues at the level of the distal first metatarsal.Vascular calcifications. Left foot:Bony demineralization.Status post amputation of the first phalanges. Irregular appearance of thedistal first metatarsal, with distinct cortex, likely postsurgical change.Mild scattered joint space narrowing.Multiple soft tissue irregularities at the lateral foot at the level of the proximal and distal fifth metatarsal. Indistinct cortex at the distal fifth metatarsal is suspicious for osteomyelitis. Consider MRI if clinically indicated to confirm osteomyelitis.Soft tissue swelling at the forefoot. Vascular calcifications. Signed: Luis Alberto Monahan Verified Date/Time: 12/20/2019 15:15:25 Reading Location: [facility] Radiology Reading Room , FOOT, 2 VIEWS, [id number] 15:15:00Reason for exam:->Rule out osteomyelitisShould this be performed at the bedside?->YesFINAL REPORT TECHNIQUE: Two views of the right foot and two views of left foot HISTORY: Rule out osteomyelitis. COMPARISON: None. IMPRESSION:Right foot:Limited views.No acute displaced fracture or dislocation. Mild scattered joint space narrowing.0.8 cm linear metallic density in the plantar soft tissues at the level of the distal first metatarsal.Vascular calcifications. Left f oot:Bony demineralization.Status post amputation of the first phalanges. Irregular appearance of thedistal first metatarsal, with distinct cortex, likely postsurgical change.Mild scattered joint spacenarrowing.Multiple soft tissue irregularities at the lateral foot at the level of the proximal and distal fifth metatarsal. Indistinct cortex at the distal fifth metatarsal is suspicious for osteomyelitis. Consider MRI if clinically indicated to confirm osteomyelitis.Soft tissue swelling at the forefoot. Vascular calcifications. Signed: Luis Alberto Monahan Verified Date/Time: 12/20/2019 15:15:25 Reading Location: [facility] Radiology Reading Room XR foot 2 views [id number] 15:15:00Interface, External Ris In - 12/20/2019 3:17 PM CDTFINAL REPORT TECHNIQUE: Two views of the right foot and two views of left foot HISTORY: Rule out osteomyelitis. COMPARISON: None. IMPRESSION:Right foot:Limited views.No acute displaced fracture or dislocation. Mild scattered joint space narrowing.0.8 cm linear metallic density in the plantar soft tissues at the level of the distal first metatarsal.Vascular calcifications. Left foot:Bony demineralization.Status post amputationof the first phalanges. Irregular appearance of the distal first metatarsal, with distinct cortex, likely postsurgical change.Mild scattered joint space narrowing.Multiple soft tissue irregularities atthe lateral foot at the level of the proximal and distal fifth metatarsal. Indistinct cortex at the distal fifth metatarsal is suspicious for osteomyelitis. Consider MRI if clinically indicated to confirm osteomyelitis.Soft tissue swelling at the forefoot. Vascular calcifications. Signed: Luis Alberto Monahan MDReport Verified Date/Time: 12/20/2019 15:15:25 Reading Location: [facility] Radiology [facility] [id number] 15:15:00Interface, External Ris In - 12/20/2019 3:17 PM CDTFINAL REPORT TECHNIQUE: Two views of the right foot and two views of left foot HISTORY: Rule out osteomyelitis. COMPARISON: Non e. IMPRESSION:Right foot:Limited views.No acute displaced fracture or dislocation. Mild scattered joint space narrowing.0.8 cm linear metallic density in the plantar soft tissues at the level of the distal first metatarsal.Vascular calcifications. Left foot:Bony demineralization.Status post amputationof the first phalanges. Irregular appearance of the distal first metatarsal, with distinct cortex, likely postsurgical change.Mild scattered joint space narrowing.Multiple soft tissue irregularities atthe lateral foot at the level of the proximal and distal fifth metatarsal. Indistinct cortex at the distal fifth metatarsal is suspicious for osteomyelitis. Consider MRI if clinically indicated to confirm osteomyelitis.Soft tissue swelling at the forefoot. Vascular calcifications. Signed: Luis Alberto Monahan MDReport Verified Date/Time: 12/20/2019 15:15:25 Reading Location: [facility] Radiology Reading Room [facility]AMMONIA2020-09-21 14:56:00 Test Item Value Reference Range Interpretation Comments AMMONIA (BEAKER) (test code = 348) 33 mol/L 17-80 Therapy Manager ID - ADMINBlood gas, [id number] 14:41:00 Test Item Value Reference Range Interpretation Comments pH, Arterial (test code = 2744-1) 7.33 7.35-7.45 L pCO2, Arterial (test code = 58 35- 45 mmHg H 2018-) pO2, Arterial (test code = 2703-7) 109 80- 90 mmHg H O2 Sat, Arterial (test code = 97.5 % 96-97 H 8-6) HCO3, Arterial (test code = 30 mmol/L 21-29 H 1959-4) Base Excess, Arterial (test code = 2.6 mmol/L -2-3 1925-7) Patient Temperature (test code = 37.0 C 8310-5) FIO2 (test code = 1819) 32 % Lab Interpretation (test code = Abnormal 67842-6) [facility] [id number] 14:41:00 Test Item Value Reference Range Interpretation Comments PH ARTERIAL (BEAKER) (test code = 7.33 7.35-7.45 L 383) PCO2 ARTERIAL (BEAKER) (test code 58 mmHg 35-45 H = 384) PO2 ARTERIAL (BEAKER) (test code = 109 mmHg 80-90 H 385) O2 SATURATION ARTERIAL (BEAKER) 97.5 % 96.0-97.0 H (test code = 386) HCO3 ARTERIAL (BEAKER) (test code 30 mmol/L 21-29 H = 388) BASE EXCESS ARTERIAL (BEAKER) 2.6 mmol/L -2.0-3.0 (test code = 387) PATIENT TEMPERATURE (BEAKER) (test 37.0 C code = 1818) FIO2 (BEAKER) (test code = 1819) 32.0 % Occult blood, [id number] 11:56:00 Test Item Value Reference Range Interpretation Comments Occult blood (test code = 2335-8) Negative Negative Lab Interpretation (test code = Normal 57591-0) [facility]OD, [id number] 11:56:00 Test Item Value Reference Range Interpretation Comments FECAL OCCULT BLOOD (BEAKER) (test Negative Negative code = 618) POCT-GLUCOSE [id number] 11:39:00 Test Item Value Reference Range Interpretation Comments POC-GLUCOSE METER 88 mg/dL 70-110 : TESTED A T [address] (BEAKER) (test code = [address], [address]) [facility] [address]: Therapy Manager/Techni artemio ID = [id number] for Gifty Phelps [id number] 11:22:00 Test Item Value Reference Range Interpretation Comments Haptoglobin (test code = <8 14-258 L 4542-7) ZIA (test code = ZIA) Therapy Manager ID Bijal HADLEY F Lab Interpretation (test Abnormal code = 40810-1) [facility] HospitalHAPTOGLOBIN2020-09-[facility] 11:22:00 Test Item Value Reference Range Interpretation Comments HAPTOGLOBIN (BEAKER) (test code = < mg/dL 14-258 L 366) Therapy Manager ID - LEONIE FT4, [id number] 11:01:00 Test Item Value Reference Range Interpretation Comments Free T4 (test code = 0.52 ng/dL 0.9-1.8 L 3024-7) ZIA (test code = ZIA) Therapy Manager ID - ADMIN Lab Interpretation (test Abnormal code = 64210-1) [facility] HospitalT4, [id number] 11:01:00 Test Item Value Reference Range Interpretation Comments FREE T4 (BEAKER) (test code = 655) 0.52 ng/dL 0.90-1.80 L Therapy Manager ID - ADMINPeripheral Blood Smear - Path [id number] 08:19:00 Test Item Value Reference Range Interpretation Comments RBC Morphology Target CellsBasophilic (test code = 2846) StipplingNucleated Red Blood Cells Pathologist Review Normochromic normocytic (test code = 2640) anemia with a few target cells, nucleated RBCs and basophilic stippling. No increase in schistocytes. WBCs normal in number and morphology. Thrombocytopenia with normal platelet morphology. Pathologist: (test Jovita Griffith M.D. code = 2849) (electronic signature) [facility]PER[facility] - PATHOLOGIST REVIEW 2019-12-20 08:19:00 Test Item Value Reference Range Interpretation Comments RBC MORPHOLOGY Target Cells (BEAKER) (test code = 2846) RBC MORPHOLOGY Basophilic Stippling (BEAKER) (test code = 17659) RBC MORPHOLOGY Nucleated Red Blood Cells (BEAKER) (test code = 32721) PERIPHERAL SMR Normochromic normocytic REVIEW (BEAKER) anemia with a few target (test code = 2640) cells, nucleated RBCs and basophilic stippling. No increase in schistocytes. WBCs normal in number and morphology. Thrombocytopenia with normal platelet morphology. [id number] Jovita Griffith M.D. 2 (BEAKER) (test (electronic signature) code = 2849) Vitamin B12 and [id number] 06:37:00 Test Item Value Reference Range Interpretation Comments Vitamin B12 (test code = 1431 pg/mL 211-911 H 2132-9) Folate (test code = 17.00 ng/mL >=5.4 2284-8) ZIA (test code = ZIA) Therapy Manager ID - ADMIN Lab Interpretation (test Abnormal code = 41710-1) [facility] HospitalVITAMIN B12 AND [id number] 06:37:00 Test Item Value Reference Range Interpretation Comments VITAMIN B12 (BEAKER) (test code = 1431 pg/mL 211-911 H 774) FOLATE (BEAKER) (test code = 362) 17.00 ng/mL >=5.4 Therapy Manager ID - ADMINPOCT-GLUCOSE [id number] 06:32:00 Test Item Value Reference Range Interpretation Comments POC-GLUCOSE METER 79 mg/dL 70-110 : TESTED A T [address] (BEAKER) (test code = [address], 1538) [facility] [address]: Therapy Manager/Techni artemio ID = [id number] for Anahi Sherman [id number] 06:25:00 Test Item Value Reference Range Interpretation Comments Ferritin (test code = 595.00 ng/mL 10-291 H 2276-4) ZIA (test code = ZIA) Therapy Manager ID - ADMIN Lab Interpretation (test Abnormal code = 66317-0) [facility] HospitalTSH/Free T4 If [id number] 06:25:00 Test Item Value Reference Range Interpretation Comments TSH (test code = 21.210 0.350- 5.500 uIU/mL H 22960-9) ZIA (test code = ZIA) Therapy Manager ID - ADMIN Lab Interpretation (test Abnormal code = 49552-3) [facility] HospitalFERRITIN2020-09-21 06:25:00 Test Item Value Reference Range Interpretation Comments FERRITIN (BEAKER) (test code = 595.00 ng/mL 10.00-291.00 H 361) Therapy Manager ID - ADMINTSH/FREE T4 IF [id number] 06:25:00 Test Item Value Reference Range Interpretation Comments THYROID STIMULATING HORMONE 21.210 uIU/mL 0.350-5.500 H (BEAKER) (test code = 772) Therapy Manager ID - ILMYSXqgnklqlpy3735-03-98 06:06:00 Test Item Value Reference Range Interpretation Comments Fibrinogen (test code = 340 mg/dL 061-214 3990-7) ZIA (test code = ZIA) Final Information (Auto Output) Lab Interpretation (test Normal code = 32943-2) [facility] HospitalPT/[id number] 06:06:00 Test Item Value Reference Range Interpretation Comments Protime (test code = 13.5 9.3- 12.0 sec H 5902-2) INR (test code = 1.25 <=5.90 6301-6) PTT (test code = 38.2 23.0- 35.0 sec H 55720-9) ZIA (test code = ZIA) RECOMMENDED COUMADIN/WARFARIN INR THERAPY RANGESSTANDARD DOSE: 2.0 - 3.0 Includes: PROPHYLAXIS for venous thrombosis, systemic embolization; TREATMENT for venous thrombosis and/or pulmonary embolus.HIGH RISK: Target INR is 2.5-3.5 for patients with mechanical heart valves.Final Information (Auto Output)Final Information (Auto Output)Final Information (Auto Output) Lab Interpretation Abnormal (test code = 70311-0) [facility] HospitalFIBRINOGEN2020-09-21 06:06:00 Test Item Value Reference Range Interpretation Comments FIBRINOGEN LEVEL (BEAKER) (test 340 mg/dL 200-400 code = 658) Final Information (Auto Output)[id number] 06:06:00 Test Item Value Reference Range Interpretation Comments PROTIME (BEAKER) (test code = 759) 13.5 sec 9.3-12.0 H INR (BEAKER) (test code = 370) 1.25 <=5.90 PARTIAL THROMBOPLASTIN TIME (BEAKER) 38.2 sec 23.0-35.0 H (test code = 760) RECOMMENDED COUMADIN/WARFARIN INR THERAPY RANGESSTANDARD DOSE: 2.0 - 3.0 Includes: PROPHYLAXIS forvenous thrombosis, systemic embolization; TREATMENT for venous thrombosis and/or pulmonary embolus.HIGH RISK: Target INR is 2.5-3.5 for patients with mechanical heart valves.Final Information (Auto Output)Final Information (Auto Output)Final Information (Auto Output)Iron, TIBC, % sat. (without ferritin)2019-12-20 05:59:00 Test Item Value Reference Range Interpretation Comments Iron (test code = 2498-4) 92.0 ug/dL 45-170 TIBC (test code = 2500-7) 151 ug/dL 250-550 L Iron % Saturation (test 61 % 20-55 H code = 2502-3) ZIA (test code = ZIA) Therapy Manager ID - ADMIN Lab Interpretation (test Abnormal code = 28623-7) [facility] HospitalIRON, TIBC, % SAT. (WITHOUT FERRITIN)2019-12-20 05:59:00 Test Item Value Reference Range Interpretation Comments IRON (BEAKER) (test code = 547) 92.0 ug/dL 45.0-170.0 TOTAL IRON BINDING CAPACITY 151 ug/dL 250-550 L (BEAKER) (test code = 769) IRON % SATURATION (2) (BEAKER) 61 % 20-55 H (test code = 2590) Therapy Manager ID - ADMINCOMPREHENSIVE METABOLIC [id number] 05:55:00 Test Item Value Reference Range Interpretation Comments TOTAL PROTEIN 6.6 gm/dL 6.0-8.5 (BEAKER) (test code = 770) ALBUMIN (BEAKER) 2.5 g/dL 3.5-5.0 L (test code = 1145) ALKALINE PHOSPHATASE 69 U/L 30-115 (BEAKER) (test code = 346) BILIRUBIN TOTAL 0.7 mg/dL 0.1-1.2 (BEAKER) (test code = 377) SODIUM (BEAKER) (test 136 meq/L 135-148 code = 381) POTASSIUM (BEAKER) 4.0 meq/L 3.6-5.5 (test code = 379) CHLORIDE (BEAKER) 97 meq/L 98-106 L (test code = 382) CO2 (BEAKER) (test 26 meq/L 20-29 code = 355) BLOOD UREA NITROGEN 51 mg/dL 10-26 H (BEAKER) (test code = 354) CREATININE (BEAKER) 3.56 mg/dL 0.50-1.20 H (test code = 358) GLUCOSE RANDOM 70 mg/dL 70-110 (BEAKER) (test code = 652) CALCIUM (BEAKER) 8.1 mg/dL 8.5-10.5 L (test code = 697) AST (SGOT) (BEAKER) 14 U/L 5-40 (test code = 353) ALT (SGPT) (BEAKER) 5 U/L 5-50 (test code = 347) EGFR (BEAKER) (test 13 mL/min/1.73 ESTIMA HINA GFR IS code = 1092) sq m NOT ACCURATE CREATININE CLEARANCE IN PREDICTING GLOMERULAR FILTRATION RATE . ESTIMATED GFR I S NOT APPLICABLE FOR DIALYSIS PATIEN TS. Therapy Manager ID - ZWAHBQ-jqffr1427-00-21 05:46:00 Test Item Value Reference Range Interpretation Comments D-Dimer, Quant (test 1.09 mg/L <0.50 H code = 65423-4) ZIA (test code = ZIA) REGARDING D-DIMER RESULTS: The 98% NPV (Negative Predictive Value) for DVT/PE exclusion is 0.50 mg/L FEU as suggested by the tire recapper and as approved by the FDA.Final Information (Auto Output) Lab Interpretation (test Abnormal code = 61383-3) [facility] HospitalD-[id number] 05:46:00 Test Item Value Reference Range Interpretation Comments D-DIMER QUANTITATIVE (BEAKER) (test 1.09 mg/L <0.50 H code = 671) REGARDING D-DIMER RESULTS: The 98% NPV (Negative Predictive Value) for DVT/PE exclusion is 0.50 mg/LFEU as suggested by the tire recapper and as approved by the FDA.Final Information (Auto Output)Reticulocyte [id number] 05:42:00 Test Item Value Reference Range Interpretation Comments % Retic (test code = 15848-9) 5.9 % 0.4-2.9 H Lab Interpretation (test code = Abnormal 56433-5) [facility] HospitalRETICULOCYTE [id number] 05:42:00 Test Item Value Reference Range Interpretation Comments RETICULOCYTE COUNT PCT (BEAKER) (test 5.9 % 0.4-2.9 H code = 575) CBC W/PLT COUNT & AUTO [id number] 05:33:00 Test Item Value Reference Range Interpretation Comments WHITE BLOOD CELL COUNT (BEAKER) 5.0 K/ L 4.0-10.0 (test code = 775) RED BLOOD CELL COUNT (BEAKER) 2.56 M/ L 4.00-5.00 L (test code = 761) HEMOGLOBIN (BEAKER) (test code = 7.6 GM/DL 12.0-15.5 L 410) HEMATOCRIT (BEAKER) (test code = 25.0 % 36.0-46.0 L 411) MEAN CORPUSCULAR VOLUME (BEAKER) 97.7 fL 82.0-99.0 (test code = 753) MEAN CORPUSCULAR HEMOGLOBIN 29.7 pg 27.0-33.0 (BEAKER) (test code = 751) MEAN CORPUSCULAR HEMOGLOBIN CONC 30.4 GM/DL 32.0-36.0 L (BEAKER) (test code = 752) RED CELL DISTRIBUTION WIDTH 20.2 % 12.0-15.0 H (BEAKER) (test code = 412) PLATELET COUNT (BEAKER) (test code 81 K/CU MM 150-430 L = 756) MEAN PLATELET VOLUME (BEAKER) 10.8 fL 6.0-11.5 (test code = 754) NUCLEATED RED BLOOD CELLS (BEAKER) 2 /100 WBC 0-0 H (test code = 413) NEUTROPHILS RELATIVE PERCENT 66 % (BEAKER) (test code = 429) LYMPHOCYTES RELATIVE PERCENT 26 % (BEAKER) (test code = 430) MONOCYTES RELATIVE PERCENT 6 % (BEAKER) (test code = 431) EOSINOPHILS RELATIVE PERCENT 1 % (BEAKER) (test code = 432) BASOPHILS RELATIVE PERCENT 0 % (BEAKER) (test code = 437) NEUTROPHILS ABSOLUTE COUNT 3.31 K/ L 1.80-8.00 (BEAKER) (test code = 670) LYMPHOCYTES ABSOLUTE COUNT 1.27 K/ L 1.48-4.50 L (BEAKER) (test code = 414) MONOCYTES ABSOLUTE COUNT (BEAKER) 0.29 K/ L 0.00-1.30 (test code = 415) EOSINOPHILS ABSOLUTE COUNT 0.07 K/ L 0.00-0.50 (BEAKER) (test code = 416) BASOPHILS ABSOLUTE COUNT (BEAKER) 0.02 K/ L 0.00-0.20 (test code = 417) IMMATURE GRANULOCYTES-RELATIVE 1 % 0-0 H PERCENT (BEAKER) (test code = 2801) Lactate dehydrogenase (LDH)2019-12-19 21:19:00 Test Item Value Reference Range Interpretation Comments LDH (test code = 2532-0) 178 U/L 107-206 ZIA (test code = ZIA) Therapy Manager ID - ADMIN Lab Interpretation (test Normal code = 64560-9) [facility] HospitalLACTATE DEHYDROGENASE (LDH)2019-12-19 21:19:00 Test Item Value Reference Range Interpretation Comments LACTATE DEHYDROGENASE (BEAKER) (test 178 U/L 107-206 code = 635) Therapy Manager ID - ADMINPOCT-GLUCOSE [id number] 20:47:00 Test Item Value Reference Range Interpretation Comments POC-GLUCOSE METER 102 mg/dL 70-110 : TESTED A T [address] (BEAKER) (test code [address], = 1538) [place] [id number]: Therapy Manager/Techni artemio ID = [id number] for Anahi Sherman POCT-GLUCOSE [id number] 16:18:00 Test Item Value Reference Range Interpretation Comments POC-GLUCOSE METER 96 mg/dL 70-110 : TESTED A T [address] (BEAKER) (test code = [address], 15[address]) [place] [id number]: Therapy Manager/Techni artemio ID = [id number] for Nalini Jean Baptiste Basic Metabolic [id number] 06:26:00 Test Item Value Reference Range Interpretation Comments Sodium (test code = 138 meq/L 444-594 1736-2) Potassium (test code = 3.9 meq/L 3.6-5.5 2823-3) Chloride (test code = 99 meq/L 98-106 2075-0) CO2 (test code = 30 meq/L 20-29 H 2028-9) BUN (test code = 47 mg/dL 10-26 H 3094-0) Creatinine (test code 3.04 mg/dL 0.5-1.2 H = 2160-0) Glucose (test code = 82 mg/dL 70-110 2345-7) Calcium (test code = 7.9 mg/dL 8.5-10.5 L 00463-6) EGFR (test code = 15 mL/min/1.73 [place] [address]-5) NOT ACCURATE CREATININE CLEARANCE IN PREDICTING GLOMERULAR FILTRATION RATE . ESTIMATED GFR I S NOT APPLICABLE FOR DIALYSIS PATIENTS. ZIA (test code = ZIA) Therapy Manager ID - ADMIN Lab Interpretation Abnormal (test code = 53799-0) [facility]OLIC [id number] 06:26:00 Test Item Value Reference Range Interpretation Comments SODIUM (BEAKER) 138 meq/L 135-148 (test code = 381) POTASSIUM (BEAKER) 3.9 meq/L 3.6-5.5 (test code = 379) CHLORIDE (BEAKER) 99 meq/L 98-106 (test code = 382) CO2 (BEAKER) (test 30 meq/L 20-29 H code = 355) BLOOD UREA NITROGEN 47 mg/dL 10-26 H (BEAKER) (test code = 354) CREATININE (BEAKER) 3.04 mg/dL 0.50-1.20 H (test code = 358) GLUCOSE RANDOM 82 mg/dL 70-110 (BEAKER) (test code = 652) CALCIUM (BEAKER) 7.9 mg/dL 8.5-10.5 L (test code = 697) EGFR (BEAKER) (test 15 mL/min/1.73 ESTIMA HINA GFR IS code = 1092) sq m NOT ACCURATE CREATININE CLEARANCE IN PREDICTING GLOMERULAR FILTRATION RATE . ESTIMATED GFR I S NOT APPLICABLE FOR DIALYSIS PATIEN TS. Therapy Manager ID - ADMINCBC W/PLT COUNT & AUTO [id number] 06:04:00 Test Item Value Reference Range Interpretation Comments WHITE BLOOD CELL COUNT (BEAKER) 4.9 K/ L 4.0-10.0 (test code = 775) RED BLOOD CELL COUNT (BEAKER) 2.61 M/ L 4.00-5.00 L (test code = 761) HEMOGLOBIN (BEAKER) (test code = 7.6 GM/DL 12.0-15.5 L 410) HEMATOCRIT (BEAKER) (test code = 25.3 % 36.0-46.0 L 411) MEAN CORPUSCULAR VOLUME (BEAKER) 96.9 fL 82.0-99.0 (test code = 753) MEAN CORPUSCULAR HEMOGLOBIN 29.1 pg 27.0-33.0 (BEAKER) (test code = 751) MEAN CORPUSCULAR HEMOGLOBIN CONC 30.0 GM/DL 32.0-36.0 L (BEAKER) (test code = 752) RED CELL DISTRIBUTION WIDTH 20.1 % 12.0-15.0 H (BEAKER) (test code = 412) PLATELET COUNT (BEAKER) (test code 68 K/CU MM 150-430 L = 756) MEAN PLATELET VOLUME (BEAKER) 10.6 fL 6.0-11.5 (test code = 754) NUCLEATED RED BLOOD CELLS (BEAKER) 2 /100 WBC 0-0 H (test code = 413) NEUTROPHILS RELATIVE PERCENT 66 % (BEAKER) (test code = 429) LYMPHOCYTES RELATIVE PERCENT 24 % (BEAKER) (test code = 430) MONOCYTES RELATIVE PERCENT 6 % (BEAKER) (test code = 431) EOSINOPHILS RELATIVE PERCENT 3 % (BEAKER) (test code = 432) BASOPHILS RELATIVE PERCENT 1 % (BEAKER) (test code = 437) NEUTROPHILS ABSOLUTE COUNT 3.23 K/ L 1.80-8.00 (BEAKER) (test code = 670) LYMPHOCYTES ABSOLUTE COUNT 1.20 K/ L 1.48-4.50 L (BEAKER) (test code = 414) MONOCYTES ABSOLUTE COUNT (BEAKER) 0.30 K/ L 0.00-1.30 (test code = 415) EOSINOPHILS ABSOLUTE COUNT 0.13 K/ L 0.00-0.50 (BEAKER) (test code = 416) BASOPHILS ABSOLUTE COUNT (BEAKER) 0.04 K/ L 0.00-0.20 (test code = 417) IMMATURE GRANULOCYTES-RELATIVE 0 % 0-0 PERCENT (BEAKER) (test code = 2801) POCT-GLUCOSE [id number] 05:35:00 Test Item Value Reference Range Interpretation Comments POC-GLUCOSE METER 85 mg/dL 70-110 : Notified RN/MD: TESTED (BEAKER) (test code = [address]) [place] [id number]: Therapy Manager/Techni artemio ID = [id number] for Zonia Healy POCT-GLUCOSE [id number] 21:46:00 Test Item Value Reference Range Interpretation Comments POC-GLUCOSE METER 125 mg/dL 70-110 H : Notified RN/MD: TESTED (BEAKER) (test code AT [address] = [address]38) [place] [address]: Therapy Manager/Techni artemio ID = [id number] for Kekylee Zonia POCT-GLUCOSE [id number] 16:17:00 Test Item Value Reference Range Interpretation Comments POC-GLUCOSE METER 103 mg/dL 70-110 : TESTED A T [address] (BEAKER) (test code [address] [facility] [address] [facility], = 1538) [place] [address]: Therapy Manager/Techni artemio ID = [id number] for Akhil rs, Shelea POCT-GLUCOSE [id number] 07:56:00 Test Item Value Reference Range Interpretation Comments POC-GLUCOSE METER 111 mg/dL 70-110 H : TESTED A T [address] (BEAKER) (test code [address], = 1538) [place] [address]: Therapy Manager/Techni artemio ID = [id number] for Akhil rs, Shelea POCT-GLUCOSE [id number] 06:25:00 Test Item Value Reference Range Interpretation Comments POC-GLUCOSE METER 57 mg/dL 70-110 L : TESTED A T [address] (BEAKER) (test code = [address], [address]) [place] [address]: Therapy Manager/Techni artemio ID = [id number] for Anne Busby POCT-GLUCOSE [id number] 21:55:00 Test Item Value Reference Range Interpretation Comments POC-GLUCOSE METER 76 mg/dL 70-110 : TESTED A T [address] (BEAKER) (test code = [address], 1538) [place] [address]: Therapy Manager/Techni artemio ID = [id number] for Anne Busby POCT-GLUCOSE [id number] 18:03:00 Test Item Value Reference Range Interpretation Comments POC-GLUCOSE METER 81 mg/dL 70-110 : TESTED A T [address] (BEAKER) (test code = [address], 15[address]) [place] [address]: Therapy Manager/Techni artemio ID = [id number] for Ericka Daniel POCT-GLUCOSE [id number] 12:33:00 Test Item Value Reference Range Interpretation Comments POC-GLUCOSE METER 73 mg/dL 70-110 : TESTED A T [address] (BEAKER) (test code = [address], 1538) [place] [address]: Therapy Manager/Techni artemio ID = [id number] for Marisela Bolton Hepatitis B surface [id number] 10:49:00 Test Item Value Reference Range Interpretation Comments Hep B S Ab (test code = <8.0 <8.0 mIU/mL 82683-8) ZIA (test code = ZIA) Therapy Manager ID - [facility] Lab Interpretation (test Normal code = 90861-9) [facility] SUR[facility] [id number] 10:49:00 Test Item Value Reference Range Interpretation Comments HEPATITIS B SURFACE ANTIBODY < mIU/mL <8.0 (BEAKER) (test code = 647) Therapy Manager ID [facility] FHepatitis B core antibody, [id number] 10:43:00 Test Item Value Reference Range Interpretation Comments Hep B Core Total Ab Nonreactive Nonreactive (test code = 14795-2) ZIA (test code = ZIA) Therapy Manager ID - [facility] Lab Interpretation (test Normal code = 92798-1) [facility]Hep[facility] C [id number] 10:43:00 Test Item Value Reference Range Interpretation Comments Hepatitis C Ab (test Nonreactive Nonreactive code = 17448-9) ZIA (test code = ZIA) Therapy Manager ID [facility] Lab Interpretation (test Normal code = 01745-7) [facility]HEPAT[facility]IS C [id number] 10:43:00 Test Item Value Reference Range Interpretation Comments HEPATITIS C ANTIBODY (BEAKER) Nonreactive Nonreactive (test code = 367) Therapy Manager ID - LEONIE FHEPATITIS B CORE ANTIBODY, [id number] 10:43:00 Test Item Value Reference Range Interpretation Comments HEPATITIS B CORE TOTAL ANTIBODY Nonreactive Nonreactive (BEAKER) (test code = 497) Therapy Manager ID - LEONIE FPOCT-GLUCOSE [id number] 06:31:00 Test Item Value Reference Range Interpretation Comments POC-GLUCOSE METER 67 mg/dL 70-110 L : TESTED A T [facility] [address] (BEAKER) (test code = [address]) [facility] [place] [address]: Therapy Manager/Techni artemio ID = [id number] for Anne Busby COMPREHENSIVE METABOLIC [id number] 05:10:00 Test Item Value Reference Range Interpretation Comments TOTAL PROTEIN 6.9 gm/dL 6.0-8.5 (BEAKER) (test code = 770) ALBUMIN (BEAKER) 2.8 g/dL 3.5-5.0 L (test code = 1145) ALKALINE PHOSPHATASE 74 U/L 30-115 (BEAKER) (test code = 346) BILIRUBIN TOTAL 0.9 mg/dL 0.1-1.2 (BEAKER) (test code = 377) SODIUM (BEAKER) (test 135 meq/L 135-148 code = 381) POTASSIUM (BEAKER) 4.0 meq/L 3.6-5.5 (test code = 379) CHLORIDE (BEAKER) 95 meq/L 98-106 L (test code = 382) CO2 (BEAKER) (test 26 meq/L 20-29 code = 355) BLOOD UREA NITROGEN 69 mg/dL 10-26 H (BEAKER) (test code = 354) CREATININE (BEAKER) 3.24 mg/dL 0.50-1.20 H (test code = 358) GLUCOSE RANDOM 64 mg/dL 70-110 L (BEAKER) (test code = 652) CALCIUM (BEAKER) 8.2 mg/dL 8.5-10.5 L (test code = 697) AST (SGOT) (BEAKER) 16 U/L 5-40 (test code = 353) ALT (SGPT) (BEAKER) 8 U/L 5-50 (test code = 347) EGFR (BEAKER) (test 14 mL/min/1.73 ESTIMA HINA GFR IS code = 1092) sq m NOT ACCURATE CREATININE CLEARANCE IN PREDICTING GLOMERULAR FILTRATION RATE . ESTIMATED GFR I S NOT APPLICABLE FOR DIALYSIS PATIEN TS. Therapy Manager ID - ADMINCBC W/PLT COUNT & AUTO [id number] 04:36:00 Test Item Value Reference Range Interpretation Comments WHITE BLOOD CELL COUNT (BEAKER) 5.8 K/ L 4.0-10.0 (test code = 775) RED BLOOD CELL COUNT (BEAKER) 2.66 M/ L 4.00-5.00 L (test code = 761) HEMOGLOBIN (BEAKER) (test code = 7.9 GM/DL 12.0-15.5 L 410) HEMATOCRIT (BEAKER) (test code = 25.3 % 36.0-46.0 L 411) MEAN CORPUSCULAR VOLUME (BEAKER) 95.1 fL 82.0-99.0 (test code = 753) MEAN CORPUSCULAR HEMOGLOBIN 29.7 pg 27.0-33.0 (BEAKER) (test code = 751) MEAN CORPUSCULAR HEMOGLOBIN CONC 31.2 GM/DL 32.0-36.0 L (BEAKER) (test code = 752) RED CELL DISTRIBUTION WIDTH 19.4 % 12.0-15.0 H (BEAKER) (test code = 412) PLATELET COUNT (BEAKER) (test code 92 K/CU MM 150-430 L = 756) MEAN PLATELET VOLUME (BEAKER) 10.5 fL 6.0-11.5 (test code = 754) NUCLEATED RED BLOOD CELLS (BEAKER) 1 /100 WBC 0-0 H (test code = 413) NEUTROPHILS RELATIVE PERCENT 68 % (BEAKER) (test code = 429) LYMPHOCYTES RELATIVE PERCENT 23 % (BEAKER) (test code = 430) MONOCYTES RELATIVE PERCENT 6 % (BEAKER) (test code = 431) EOSINOPHILS RELATIVE PERCENT 2 % (BEAKER) (test code = 432) BASOPHILS RELATIVE PERCENT 1 % (BEAKER) (test code = 437) NEUTROPHILS ABSOLUTE COUNT 3.97 K/ L 1.80-8.00 (BEAKER) (test code = 670) LYMPHOCYTES ABSOLUTE COUNT 1.33 K/ L 1.48-4.50 L (BEAKER) (test code = 414) MONOCYTES ABSOLUTE COUNT (BEAKER) 0.32 K/ L 0.00-1.30 (test code = 415) EOSINOPHILS ABSOLUTE COUNT 0.13 K/ L 0.00-0.50 (BEAKER) (test code = 416) BASOPHILS ABSOLUTE COUNT (BEAKER) 0.04 K/ L 0.00-0.20 (test code = 417) IMMATURE GRANULOCYTES-RELATIVE 1 % 0-0 H PERCENT (BEAKER) (test code = 2801) POCT-GLUCOSE [id number] 21:14:00 Test Item Value Reference Range Interpretation Comments POC-GLUCOSE METER 79 mg/dL 70-110 : TESTED A T [facility] [address] (BEAKER) (test code = [address]) [facility] [address]: Therapy Manager/Techni artemio ID = [id number] for Anne Busby POCT-GLUCOSE [id number] 18:35:00 Test Item Value Reference Range Interpretation Comments POC-GLUCOSE METER 68 mg/dL 70-110 L : Notified RN/MD: TESTED (BEAKER) (test code = AT [facility] [address]) [facility], [facility] [address]: Therapy Manager/Techni artemio ID = [id number] for Alondra Kelley SARS-COV2/RT-PCR ([facility])2019-12-16 17:53:00 Test Item Value Reference Range Interpretation Comments SARS-COV2/RT-PCR (test Negative Not Detected, Negative, code = 4570713) See external report for linked test SARS-COV-2 PERFORMING LAB [facility] (test code = 9920475) Negative result for this test determines that SARS-CoV-2 RNA was not present in the specimen above the Limit of Detection (LOD). However, Negative results do not preclude SARS-CoV-2 infection and should not be used as the sole basis for treatment or patient management decisions. Negative results mustbe combined with clinical observations, patient history, and epidemiological information. A false negative result may occur if a specimen is improperly collected, transported or handled. A false negative result should be considered if patient's recent exposures or clinical presentation indicate that COVID-19 (SARS-CoV-2) is likely and diagnostic tests for other causes of illness are negative. Re-testing should be considered in cases of suspected false negatives.The limit of detection for this assay is 800 copies/mL.This SARS CoV-2 test is a real-time RT-PCR test intended for the qualitative detection of nucleic acid from SARS-CoV-2 in a nasopharyngeal swab specimen collected from individuals susp ected of COVID-19 by their healthcare provider.This test has not been Food and Drug Administration (FDA) cleared or approved. This is a modified version of an approved [...] is revoked under Section 564(g) of the Act.Fact Sheet for Healthcare Providers:https://www.[employer]/sites/default/files/product/documents/Fact_Shee p_DM_Iphhzxnwq_Qyqe_TZLP-LcW-3.pdfFact Sheet for Healthcare Patients:https://www.[employer]/sites/default/files/product/ documents/Qlie_Avyrt_Thebhiuw_Rmua_SGRF-FgK-4.pdfPerforming Laboratory:[facility], [place] [address]Qgvkrhojd B surface [id number] 16:57:00 Test Item Value Reference Range Interpretation Comments HBsAg Screen (test code = Nonreactive Nonreactive 5195-3) ZIA (test code = ZIA) Therapy Manager ID - ADMIN Lab Interpretation (test Normal code = 21478-5) [facility] [id number] 16:57:00 Test Item Value Reference Range Interpretation Comments HEPATITIS B SURFACE ANTIGEN (2) Nonreactive Nonreactive (BEAKER) (test code = 2585) Therapy Manager ID - ADMINANG, TUNNELED CATHETER [id number] 15:06:00Reason for Central Line/PICC?->Need for hemodialysis accessReason for exam:->dialysisFINAL REPORT Tunneled dialysis catheter insertion. History: Renal failure. Modality: Sonography and fluoroscopy. Sedation: Moderate sedation was administered. 1 mg of Versed and 50 mcg of fentanyl IV was used for moderate sedation monitored under my direction. Total intra-service time of sedation was 45 minutes. The patient's vital signs were monitored throughout the procedure and recorded in the patient's medical record by the nurse. Insulation Helper: Soto Arias M.D. Veneer Sheet Repairer: none. Approach: Right internal jugular vein Estimated bloodloss: < 5 cc. Specimen: None. Fluoroscopy Time: 1 min 14 sec min. Dose (Ka,r): 14 mGy. Technique: Informed written consent was obtained. Discussion of risks, benefits, and alternatives were made with the patient. The patient expressed understanding and agreed to proceed. All elements maximal sterile barrier technique was utilized for this procedure, including utilization of sterile scrub solution for skin prep, a large sterile sheet to cover the areas of the patient that were not prepped,and hand hygiene, mask, head covering, and sterile gown for performing radiologist and scrub technologist. The skin was anesthetized with 2% lidocaine.Ultrasound evaluation showed a patent and compressible left internal jugular vein, which was punctured under direct real-time ultrasound guidance witha micropuncture needle. An ultrasound image was saved to PACS. A 0.018 inch wire was placed through the needle into the right atrium. A 4 Malian micropuncture sheath was placed and a 0.035 wire was advanced into the IVC. A subcutaneous tunnel was created in the left anterior chest wall by blunt dissection. A 23 cm tip to cuff 15.5 Malian Duraflow 2 catheter was brought through the tunnel. Thevessel tract was serially dilated. A peel-away sheath was placed in the left IJ vein and the catheter was advanced through the sheath, with its distal tip terminating in the superior right atrium. The peel-away sheath was removed. The ports were flushed and aspirated easily following placement. Thecatheter was sutured to the skin to secure its placement. The small jugular incision site demonstrated prolonged bleeding and pressure was held for approximately 10 minutes with satisfactory hemostasis. Sutures and Dermabond was placed. A resorbable purse-string suture was placed at the catheter exitsite. Vital signs were monitored throughout the procedure by a nurse, and remained stable. The patient tolerated the procedure well and left the department in the same condition. Results: Spot radiograph of the chest demonstrates the new dialysis catheter to lie in the expected position with its tip overlying the superior right atrium. Impression: 1. Successful, uncomplicated placement of a left internal jugular tunneled dialysis catheter using sonographic and fluoroscopic guidance and conscious sedation. Signed: Soto Arias MDReport Verified Date/Time: 12/16/2019 15:06:45Reading Location: [facility] Radiology Reading Room IR Tunneled Catheter [id number] 15:06:00 Interface, External Ris In - 12/16/2019 3:08 PM CDTFINAL REPORT Tunneled dialysis catheter insertion. History: Renal failure. Modality: Sonography and fluoroscopy. Sedation: Moderate sedation was administered. 1 mg of Versed and50 mcg of fentanyl IV was used for moderate sedation monitored under my direction. Total intra-service time of sedation was 45 minutes. The patient's vital signs were monitored throughout the procedure and recorded in the patient's medical record by the nurse. Insulation Helper: Soto Arias M.D. Ass istant: none. Approach: Right internal jugular vein Estimated blood loss: < 5 cc. Specimen: None. Fluoroscopy Time: 1 min 14 sec min. Dose (Ka,r): 14 mGy. Technique: Informed written consent was obtained. Discussion of risks, benefits, and alternatives were made with the patient. The patient expressed understanding and agreed to proceed. All elements maximal sterile barrier technique was utilized for thisprocedure, including utilization of sterile scrub solution for skin prep, a large sterile sheet to cover the areas of the patient that were not prepped, and hand hygiene, mask, head covering, and sterile gown for performing radiologist and scrub technologist. The skin was anesthetized with 2% lidocaine.Ultrasound evaluation showed a patent and compressible left internal jugular vein, which was punctured under direct real-time ultrasound guidance with a micropuncture needle. An ultrasound image wassaved to PACS. A 0.018 inch wire was placed through the needle into the right atrium. A 4 Frenchmicropuncture sheath was placed and a 0.035 wire was advanced into the IVC. A subcutaneous tunnel was created in the left anterior chest wall by blunt dissection. A 23 cm tip to cuff 15.5 Malian Duraflow 2 catheter was brought through the tunnel. The vessel tract was serially dilated. A peel-away sheath was placed in the left IJ vein and the catheter was advanced through the sheath, with its distal tip terminating in the superior right atrium. The peel-away sheath was removed. The ports were flushed and aspirated easily following placement. The catheter was sutured to the skin to secure its placement. The small jugular incision site demonstrated prolonged bleeding and pressure was held for approximately 10 minutes with satisfactory hemostasis. Sutures and Dermabond was placed. A resorbablepurse-string suture was placed at the catheter exit site. Vital signs were monitored throughout the procedure by a nurse, and remained stable. The patient tolerated the procedure well and [facility]. Results: Spot radiograph of the chest demonstrates the new dialysis catheter to lie in theexpected position with its tip overlying the superior right atrium. Impression: 1. Successful, uncomplicated placement of a left internal jugular tunneled dialysiscatheter using sonographic and fluoroscopic guidance and conscious sedation. Signed: Soto Arias MDReport Verified Date/Time: 12/16/2019 15:06:45 Reading Location: [facility] Radiology Reading Room [facility]PO[facility]GLU[facility]SE [id number] 14:59:00 Test Item Value Reference Range Interpretation Comments POC-GLUCOSE METER 70 mg/dL 70-110 : Notified RN/MD: TESTED (BEAKER) (test code = AT [facility] L [address]) [facility] [address]: Therapy Manager/Techni artemio ID = [id number] for Moshe julio Alondra POCT-GLUCOSE [id number] 11:13:00 Test Item Value Reference Range Interpretation Comments POC-GLUCOSE METER 72 mg/dL 70-110 : Notified RN/MD: TESTED (BEAKER) (test code = AT [facility] L [address]) [facility] [address]: Therapy Manager/Techni artemio ID = [id number] for Repa julio Alondra RAD, CHEST, 1 VIEW, NON [id number] 09:20:00Reason for exam:->fallShould this be performed at the bedside?->YesFINAL REPORT TECHNIQUE: Frontal view of the chest. INDICATION: fall COMPARISON:09/02/2017 DISCUSSION:Limited evaluation due to portable technique. Lines and hardware: Left subclavian central line is noted with tip projecting at the superior right atrium.Heart and mediastinum: Cardiomediastinal silhouette is mildly enlarged. Mild central vascular congestion is noted. Trachea projects midline.Lungs and pleura: Moderate right pleural effusion is noted with right basilar opacity. Neg ative for pneumothorax. Left lung is clear.Soft tissues and bones: No acute abnormality. Visualized ribs are grossly intact. Postsurgical changes are identified in the left upper quadrant. IMPRESSION:Right basilar opacification is concerning for accommodation effusion/consolidation. Negative for pneumothorax. Signed: Soto Arias MDReport Verified Date/Time: 12/16/2019 09:20:06 Reading Location: [facility] Radiology Reading Room XR chest 1 view portable / [id number] 09:20:00Interface, External Ris In - 12/16/2019 9:22 AM CDTFINAL REPORT TECHNIQUE: Frontal view of the chest. INDICATION: fall COMPARISON:09/02/2017 DISCUSSION:Limited evaluation due to portable technique. Lines and hardware: Left subclavian central line is noted with tip projecting at the superior right atrium.Heart and mediastinum: Cardiomediastinal silhouette is mildly enlarged. Mildcentral vascular congestion is noted. Trachea projects midline.Lungs and pleura: Moderate right pleural effusion is noted with right basilar opacity. Negative for pneumothorax. Left lung is clear.Soft tissues and bones: No acute abnormality. Visualized ribs are grossly intact. Postsurgical changes areidentified in the left upper quadrant. IMPRESSION:Right basilar opacification is concerning for accommodation effusion/consolidation. Negative for pneumothorax. Signed: Soto Arias MDReport Verified Date/Time: 12/16/2019 09:20:06 Reading Location: [facility] Radiology Reading Room Electronically yeimi d by: SOTO ARIAS MD on 12/16/2019 09:20 [facility] POCT-GLUCOSE [id number] 06:03:00 Test Item Value Reference Range Interpretation Comments POC-GLUCOSE METER 74 mg/dL 70-110 : Notified RN/MD: TESTED (BEAKER) (test code = AT [facility] [address]) [place] [address]: Therapy Manager/Techni artemio ID = [id number] for Zonia Healy BASIC METABOLIC [id number] 05:08:00 Test Item Value Reference Range Interpretation Comments SODIUM (BEAKER) 135 meq/L 135-148 (test code = 381) POTASSIUM (BEAKER) 4.3 meq/L 3.6-5.5 (test code = 379) CHLORIDE (BEAKER) 94 meq/L 98-106 L (test code = 382) CO2 (BEAKER) (test 28 meq/L 20-29 code = 355) BLOOD UREA NITROGEN 100 mg/dL 10-26 H (BEAKER) (test code = 354) CREATININE (BEAKER) 3.91 mg/dL 0.50-1.20 H (test code = 358) GLUCOSE RANDOM 75 mg/dL 70-110 (BEAKER) (test code = 652) CALCIUM (BEAKER) 8.2 mg/dL 8.5-10.5 L (test code = 697) EGFR (BEAKER) (test 12 mL/min/1.73 ESTIMA HINA GFR IS code = 1092) sq m NOT ACCURATE CREATININE CLEARANCE IN PREDICTING GLOMERULAR FILTRATION RATE . ESTIMATED GFR I S NOT APPLICABLE FOR DIALYSIS PATIEN TS. Therapy Manager ID - ADMINProthrombin time/[id number] 05:01:00 Test Item Value Reference Range Interpretation Comments Protime (test code = 14.1 9.3- 12.0 sec H 5902-2) INR (test code = 1.31 <=5.90 6301-6) ZIA (test code = ZIA) RECOMMENDED COUMADIN/WARFARIN INR THERAPY RANGESSTANDARD DOSE: 2.0 - 3.0 Includes: PROPHYLAXIS for venous thrombosis, systemic embolization; TREATMENT for venous thrombosis and/or pulmonary embolus.HIGH RISK: Target INR is 2.5-3.5 for patients with mechanical heart valves.Final Information (Auto Output)Final Information (Auto Output) Lab Interpretation Abnormal (test code = 09552-6) [facility]/[id number] 05:01:00 Test Item Value Reference Range Interpretation Comments PROTIME (BEAKER) (test code = 759) 14.1 sec 9.3-12.0 H INR (BEAKER) (test code = 370) 1.31 <=5.90 RECOMMENDED COUMADIN/WARFARIN INR THERAPY RANGESSTANDARD DOSE: 2.0 - 3.0 Includes: PROPHYLAXIS forvenous thrombosis, systemic embolization; TREATMENT for venous thrombosis and/or pulmonary embolus.HIGH RISK: Target INR is 2.5-3.5 for patients with mechanical heart valves.Final Information (Auto Output)Final Information (Auto Output)CBC W/PLT COUNT & AUTO [id number] 04:46:00 Test Item Value Reference Range Interpretation Comments WHITE BLOOD CELL COUNT (BEAKER) 7.5 K/ L 4.0-10.0 (test code = 775) RED BLOOD CELL COUNT (BEAKER) 2.65 M/ L 4.00-5.00 L (test code = 761) HEMOGLOBIN (BEAKER) (test code = 7.7 GM/DL 12.0-15.5 L 410) HEMATOCRIT (BEAKER) (test code = 24.7 % 36.0-46.0 L 411) MEAN CORPUSCULAR VOLUME (BEAKER) 93.2 fL 82.0-99.0 (test code = 753) MEAN CORPUSCULAR HEMOGLOBIN 29.1 pg 27.0-33.0 (BEAKER) (test code = 751) MEAN CORPUSCULAR HEMOGLOBIN CONC 31.2 GM/DL 32.0-36.0 L (BEAKER) (test code = 752) RED CELL DISTRIBUTION WIDTH 18.7 % 12.0-15.0 H (BEAKER) (test code = 412) PLATELET COUNT (BEAKER) (test code 91 K/CU MM 150-430 L = 756) MEAN PLATELET VOLUME (BEAKER) 10.3 fL 6.0-11.5 (test code = 754) NUCLEATED RED BLOOD CELLS (BEAKER) 1 /100 WBC 0-0 H (test code = 413) NEUTROPHILS RELATIVE PERCENT 76 % (BEAKER) (test code = 429) LYMPHOCYTES RELATIVE PERCENT 18 % (BEAKER) (test code = 430) MONOCYTES RELATIVE PERCENT 4 % (BEAKER) (test code = 431) EOSINOPHILS RELATIVE PERCENT 2 % (BEAKER) (test code = 432) BASOPHILS RELATIVE PERCENT 0 % (BEAKER) (test code = 437) NEUTROPHILS ABSOLUTE COUNT 5.64 K/ L 1.80-8.00 (BEAKER) (test code = 670) LYMPHOCYTES ABSOLUTE COUNT 1.32 K/ L 1.48-4.50 L (BEAKER) (test code = 414) MONOCYTES ABSOLUTE COUNT (BEAKER) 0.33 K/ L 0.00-1.30 (test code = 415) EOSINOPHILS ABSOLUTE COUNT 0.13 K/ L 0.00-0.50 (BEAKER) (test code = 416) BASOPHILS ABSOLUTE COUNT (BEAKER) 0.03 K/ L 0.00-0.20 (test code = 417) IMMATURE GRANULOCYTES-RELATIVE 0 % 0-0 PERCENT (BEAKER) (test code = 2801) POCT-GLUCOSE [id number] 17:13:00 Test Item Value Reference Range Interpretation Comments POC-GLUCOSE METER 220 mg/dL 70-110 H TESTED AT [place] [address] ([facility]) (test code = [facility] 1538) [address] BASIC METABOLIC [id number] 15:47:00 Test Item Value Reference Range Interpretation [...] NOT APPLICABLE FOR DIALYSIS PATIEN TS. POCT-GLUCOSE [id number] 11:30:00 Test Item Value Reference Range Interpretation Comments POC-GLUCOSE METER 268 mg/dL 70-110 H TESTED AT [facility] 6720 ([facility]) (test code = [facility] 1538) [address] POCT-GLUCOSE [id number] 07:08:00 Test Item Value Reference Range Interpretation Comments POC-GLUCOSE METER 208 mg/dL 70-110 H TESTED AT [facility] 67[address] (BEAKER) (test code = [place] 1538) [address] CALCIUM, [id number] 06:47:00 Test Item Value Reference Range Interpretation Comments CALCIUM IONIZED (BEAKER) (test 1.11 mmol/L 1.12-1.27 L code = 698) PH, BLOOD (BEAKER) (test code = 7.40 1810) BASIC METABOLIC [id number] 06:40:00 Test Item Value Reference Range Interpretation [...] S NOT APPLICABLE FOR DIALYSIS PATIEN TS. [id number] 06:33:00 Test Item Value Reference Range Interpretation Comments PHOSPHORUS (BEAKER) (test code = 5.1 mg/dL 2.3-4.7 H 604) [id number] 06:33:00 Test Item Value Reference Range Interpretation Comments MAGNESIUM (BEAKER) (test code = 2.0 mg/dL 1.6-2.6 627) LACTIC ACID, VENOUS, WHOLE [id number] 06:02:00 Test Item Value Reference Range Interpretation Comments LACTATE BLOOD VENOUS (2) (BEAKER) 0.8 mmol/L 0.5-2.2 (test code = 6732) Effective 08/02/2015: Units/Reference Range ChangeNew: 0.5-2.2 mmol/L Previous: 5-20 mg/dLCBC W/PLT COUNT & AUTO [id number] 05:54:00 Test Item Value Reference Range Interpretation [...] EOSINOPHILS ABSOLUTE COUNT 0.34 K/ L 0.04-0.36 (AKER) (test code = 416) BASOPHILS ABSOLUTE COUNT (AKER) 0.08 K/ L 0.01-0.08 (test code = 417) IMMATURE GRANULOCYTES-RELATIVE 0 % 0-1 PERCENT ([facility]) (test code = 2801) POCT-GLUCOSE [id number] 21:30:00 Test Item Value Reference Range Interpretation Comments POC-GLUCOSE METER 248 mg/dL 70-110 H TESTED AT [place] [address] ([facility]) (test code = [facility] 1538) [address] RAD, [id number] 21:22:00Reason for exam:->fall, tailbone painFINAL REPORT RAD, SACRUM \\T\\ COCCYX, MIN 3 [...] an acute fracture persists. Signed: Juan Francisco Connor MDReport Verified Date/Time: 09/04/2017 21:22:03 Reading Location: [address] Reading Room POCT-GLUCOSE [id number] 17:37:00 Test Item Value Reference Range Interpretation Comments POC-GLUCOSE METER 222 mg/dL 70-110 H TESTED AT [facility] 67 ([facility]) (test code = [facility] Dylon [facility] 1538) [address] POCT-GLUCOSE [id number] 13:55:00 Test Item Value Reference Range Interpretation Comments POC-GLUCOSE METER 194 mg/dL 70-110 H TESTED AT [facility] 6720 (BEAKER) (test code = JULIANO Osborne [facility] 1538) [address] POCT-GLUCOSE [id number] 12:34:00 Test Item Value Reference Range Interpretation Comments POC-GLUCOSE METER 229 mg/dL 70-110 H TESTED AT [place] [address] (BEAKER) (test code = JULIANO Osborne [facility] 1538) [address] POCT-GLUCOSE [id number] 08:00:00 Test Item Value Reference Range Interpretation Comments POC-GLUCOSE METER 159 mg/dL 70-110 H TESTED AT [place] [address] (BEAKER) (test code = JULIANO Osborne [facility] 1538) [address] CALCIUM, [id number] 06:00:00 Test Item Value Reference Range Interpretation Comments CALCIUM IONIZED (BEAKER) (test 1.05 mmol/L 1.12-1.27 L code = 698) PH, BLOOD (BEAKER) (test code = 7.45 1810) [id number] 05:59:00 Test Item Value Reference Range Interpretation Comments PHOSPHORUS (BEAKER) (test code = 4.8 mg/dL 2.3-4.7 H 604) [id number] 05:59:00 Test Item Value Reference Range Interpretation Comments MAGNESIUM (BEAKER) (test code = 2.0 mg/dL 1.6-2.6 627) BASIC METABOLIC [id number] 05:59:00 Test Item Value Reference Range Interpretation [...] = 380) CBC W/PLT COUNT & AUTO [id number] 05:32:00 Test Item Value Reference Range Interpretation [...] PERCENT (BEAKER) (test code = 2801) POCT-GLUCOSE [id number] 20:36:00 Test Item Value Reference Range Interpretation Comments POC-GLUCOSE METER 211 mg/dL 70-110 H TESTED AT [place] [address] ([facility]) (test code = [facility] Dylon [facility] 1538) [address] CREATININE, RANDOM [id number] 19:55:00 Test Item Value Reference Range Interpretation Comments [facility] (test 16.1 mg/dL code = 375) Reference Range: No NormalsPROTEIN, RANDOM [id number] 19:55:00 Test Item Value Reference Range Interpretation Comments PROTEIN, URINE (BEAKER) (test code 102 mg/dL 0-14 H = 1569) POCT-GLUCOSE [id number] 18:04:00 Test Item Value Reference Range Interpretation Comments POC-GLUCOSE METER 177 mg/dL 70-110 H TESTED AT [place] [address] ([facility] (test code = [facility] Dylon [facility] 1538) [address] POCT-GLUCOSE [id number] 11:59:00 Test Item Value Reference Range Interpretation Comments POC-GLUCOSE METER 244 mg/dL 70-110 H TESTED AT [place] [address] ([facility] (test code = [facility] [employer]ium [facility] 1538) [address] POCT-GLUCOSE [id number] 07:53:00 Test Item Value Reference Range Interpretation Comments POC-GLUCOSE METER 160 mg/dL 70-110 H TESTED AT [place] [address] ([facility] (test code = [facility] Dylon [facility] 1538) [address] BASIC METABOLIC [id number] 05:29:00 Test Item Value Reference Range Interpretation [...] S NOT APPLICABLE FOR DIALYSIS PATIEN TS. [id number] 05:21:00 Test Item Value Reference Range Interpretation Comments MAGNESIUM (BEAKER) (test code = 2.1 mg/dL 1.6-2.6 627) HEPATIC FUNCTION [id number] 05:21:00 Test Item Value Reference Range Interpretation [...] code = 23 U/L 6-55 347) TROPONIN [id number] 05:18:00 Test Item Value Reference Range Interpretation [...] 417) IMMATURE GRANULOCYTES-RELATIVE 0 % 0-1 PERCENT (ROBERT) (test code = 2801) TROPONIN [id number] 23:40:00 Test Item Value Reference Range Interpretation [...] acidosis, acute neurological disease, and persistent tachyarrhythmia.POCT-GLUCOSE [id number] 22:51:00 Test Item Value Reference Range Interpretation Comments POC-GLUCOSE METER 214 mg/dL 70-110 H TESTED AT [facility] 6720 (ROBERT) (test code = JULIANO [place] 1538) [address] RAD, CHEST, 1 VIEW, NON [id number] 21:42:00Reason for exam:->CHEST PAINShould this be performed at the bedside?->YesFINAL REPORT RAD, CHEST, 1 VIEW, NON DEPT INDICATION: CHEST PAIN COMPARISON: Chest x-ray 4 weeks ago TECHNIQUE: Single frontal view of the chest. IMPRESSION:Cardiomegaly.Mild pulmonary interstitial edema with a small right- sided effusion.No acute osseous abnormality. Signed: Dario Abraham MDReport Verified Date/Time: 09/02/2017 21:42:11 Reading Location: [facility] C013T [facility] onpa Reading Room CREATININE, RANDOM [id number] 21:10:00 Test Item Value Reference Range Interpretation Comments CREATININE URINE (BEAKER) (test 35.5 mg/dL code = 375) Reference Range: No NormalsSODIUM, RANDOM [id number] 21:10:00 Test Item Value Reference Range Interpretation Comments SODIUM URINE (BEAKER) (test code = 80 meq/L 243) Reference Range: No NormalsURINALYSIS W/ [id number] 20:59:00 Test Item Value Reference Range Interpretation [...] code = 514) SOURCE(BEAKER) (test code = 8038) BASIC METABOLIC [id number] 16:49:00 Test Item Value Reference Range Interpretation [...] S NOT APPLICABLE FOR DIALYSIS PATIEN TS. [id number] 16:38:00 Test Item Value Reference Range Interpretation [...] (BEAKER) (test code = 700) BASIC METABOLIC [id number] 13:43:00 Test Item Value Reference Range Interpretation [...] NOT APPLICABLE FOR DIALYSIS PATIEN TS. POCT-GLUCOSE [id number] 12:44:00 Test Item Value Reference Range Interpretation Comments POC-GLUCOSE METER 283 mg/dL 70-110 H TESTED AT [facility] 6720 (BEAKER) (test code = [place]ULIANO [place] 1538) [address] CALCIUM, [id number] 07:03:00 Test Item Value Reference Range Interpretation Comments CALCIUM IONIZED (BEAKER) (test 1.02 mmol/L 1.12-1.27 L code = 698) PH, BLOOD (BEAKER) (test code = 7.43 1810) [id number] 05:28:00 Test Item Value Reference Range Interpretation Comments PHOSPHORUS (BEAKER) (test code = 3.3 mg/dL 2.3-4.7 604) [id number] 05:28:00 Test Item Value Reference Range Interpretation Comments MAGNESIUM (BEAKER) (test code = 1.5 mg/dL 1.6-2.6 L 627) BASIC METABOLIC [id number] 05:28:00 Test Item Value Reference Range Interpretation [...] PATIEN TS. CBC W/PLT COUNT & AUTO [id number] 05:06:00 Test Item Value Reference Range Interpretation [...] LYMPHOCYTES ABSOLUTE COUNT 3.71 K/ L 1.18-3.74 (AKER) (test code = 414) MONOCYTES ABSOLUTE COUNT (BEAKER) 0.53 K/ L 0.24-0.36 H (test code = 415) EOSINOPHILS ABSOLUTE COUNT 0.31 K/ L 0.04-0.36 (BEAKER) (test code = 416) BASOPHILS ABSOLUTE COUNT (AKER) 0.07 K/ L 0.01-0.08 (test code = 417) IMMATURE GRANULOCYTES-RELATIVE 1 % 0-1 PERCENT ([facility]) (test code = 2801) POCT-GLUCOSE [id number] 21:08:00 Test Item Value Reference Range Interpretation Comments POC-GLUCOSE METER 202 mg/dL 70-110 H TESTED AT [place] [address] ([facility]) (test code = [facility] 1538) [address] POCT-GLUCOSE [id number] 16:50:00 Test Item Value Reference Range Interpretation Comments POC-GLUCOSE METER 287 mg/dL 70-110 H TESTED AT [place] [address] ([facility]) (test code = [facility] 1538) [address] POCT-GLUCOSE [id number] 12:21:00 Test Item Value Reference Range Interpretation Comments POC-GLUCOSE METER 213 mg/dL 70-110 H TESTED AT [place] [address] ([facility]) (test code = [facility] 1538) 11881 POCT-GLUCOSE [id number] 08:28:00 Test Item Value Reference Range Interpretation Comments POC-GLUCOSE METER 178 mg/dL 70-110 H TESTED AT [place] [address] ([facility]) (test code = [facility] 1538) [address] CALCIUM, [id number] 07:06:00 Test Item Value Reference Range Interpretation Comments CALCIUM IONIZED ([facility]) (test 0.99 mmol/L 1.12-1.27 L code = 698) PH, BLOOD ([facility]) (test code = 7.42 1810) [id number] 05:37:00 Test Item Value Reference Range Interpretation Comments PHOSPHORUS ([facility]) (test code = 3.5 mg/dL 2.3-4.7 604) [id number] 05:37:00 Test Item Value Reference Range Interpretation Comments MAGNESIUM (BEAKER) (test code = 1.6 mg/dL 1.6-2.6 627) BASIC METABOLIC [id number] 05:37:00 Test Item Value Reference Range Interpretation [...] PATIEN TS. CBC W/PLT COUNT & AUTO [id number] 05:07:00 Test Item Value Reference Range Interpretation [...] % 0-1 PERCENT (BEAKER) (test code = 2803) POCT-GLUCOSE [id number] 21:24:00 Test Item Value Reference Range Interpretation Comments POC-GLUCOSE METER 255 mg/dL 70-110 H TESTED AT [place] [address] ([facility]) (test code = [facility] 1538) [address] POCT-GLUCOSE [id number] 17:11:00 Test Item Value Reference Range Interpretation Comments POC-GLUCOSE METER 244 mg/dL 70-110 H TESTED AT [place] [address] ([facility]) (test code = [facility] 1538) [address]39 POCT-GLUCOSE [id number] 11:54:00 Test Item Value Reference Range Interpretation Comments POC-GLUCOSE METER 209 mg/dL 70-110 H TESTED AT [place] [address] ([facility]) (test code = [facility] 1538) [address] POCT-GLUCOSE [id number] 08:15:00 Test Item Value Reference Range Interpretation Comments POC-GLUCOSE METER 132 mg/dL 70-110 H TESTED AT [facility] 6720 (BEAKER) (test code = [place]IANO [place] 1538) [address] RAD, CHEST, 1 VIEW, NON [id number] 07:44:00Reason for exam:->edemaShould this be performed at the bedside?->YesFINAL REPORT Chest one view AP 08/07/2017 7:44 AM CLINICAL INDICATION: edema COMPARISON: 05/31/2017 IMPRESSION: Cardiomediastinal contours are stable. There is mild pulmonary edema,asymmetric to the right. There are trace bilateral pleural effusions, with bibasilar linear atelectasis. Sternotomy wires remain midline. Signed: Regan Cespedes Verified Date/Time: 08/07/2017 07:44:22 Reading Location: [facility] Radiology Reading Room [id number] 05:30:00 Test Item Value Reference Range Interpretation Comments FERRITIN (BEAKER) (test code = 361) 87 ng/mL 5-275 CBC W/PLT COUNT & AUTO [id number] 05:21:00 Test Item Value Reference Range Interpretation [...] % 20-55 L (test code = 2590) [id number] 05:11:00 Test Item Value Reference Range Interpretation Comments PHOSPHORUS (BEAKER) (test code = 3.6 mg/dL 2.3-4.7 604) [id number] 05:11:00 Test Item Value Reference Range Interpretation Comments MAGNESIUM (BEAKER) (test code = 2.0 mg/dL 1.6-2.6 627) BASIC METABOLIC [id number] 05:11:00 Test Item Value Reference Range Interpretation [...] H (BEAKER) (test code = 700) CALCIUM, [id number] 04:58:00 Test Item Value Reference Range Interpretation Comments CALCIUM IONIZED (BEAKER) (test 1.04 mmol/L 1.12-1.27 L code = 698) PH, BLOOD (BEAKER) (test code = 7.41 1810) RETICULOCYTE [id number] 04:51:00 Test Item Value Reference Range Interpretation Comments RETICULOCYTE COUNT PCT (BEAKER) (test 1.2 % 0.5-1.7 code = 575) POCT-GLUCOSE [id number] 20:49:00 Test Item Value Reference Range Interpretation Comments POC-GLUCOSE METER 202 mg/dL 70-110 H TESTED AT [facility] 6720 (BEAKER) (test code = [place]ASAMANDA [place] 1538) [address] CREATININE, RANDOM [id number] 18:38:00 Test Item Value Reference Range Interpretation Comments CREATININE URINE (BEAKER) (test 56.3 mg/dL code = 375) Reference Range: No NormalsPROTEIN, RANDOM [id number] 18:38:00 Test Item Value Reference Range Interpretation Comments PROTEIN, URINE (BEAKER) (test code 189 mg/dL 0-14 H = 1569) URINALYSIS W/ [id number] 18:34:00 Test Item Value Reference Range Interpretation [...] 516) SOURCE(BEAKER) (test code = Urine, Voided 7142) POCT-GLUCOSE [id number] 17:38:00 Test Item Value Reference Range Interpretation Comments POC-GLUCOSE METER 143 mg/dL 70-110 H TESTED AT [facility] 6720 (BEAKER) (test code = JULIANO [place] 1538) [address] POCT-GLUCOSE [id number] 12:30:00 Test Item Value Reference Range Interpretation Comments POC-GLUCOSE METER 218 mg/dL 70-110 H TESTED AT [facility] 6720 (BEAKER) (test code = JULIANO [place] 1538) [address] POCT-GLUCOSE [id number] 08:00:00 Test Item Value Reference Range Interpretation Comments POC-GLUCOSE METER 134 mg/dL 70-110 H TESTED AT [facility] 6720 (BEAKER) (test code = JULIANO Osborne [facility] 1538) [address] CBC W/PLT COUNT & AUTO [id number] 04:23:00 Test Item Value Reference Range Interpretation [...] (BEAKER) (test code = 2801) BASIC METABOLIC [id number] 04:13:00 Test Item Value Reference Range Interpretation [...] S NOT APPLICABLE FOR DIALYSIS PATIEN TS. [id number] 04:10:00 Test Item Value Reference Range Interpretation Comments PHOSPHORUS (BEAKER) (test code = 4.9 mg/dL 2.3-4.7 H 604) [id number] 04:10:00 Test Item Value Reference Range Interpretation Comments MAGNESIUM (BEAKER) (test code = 1.4 mg/dL 1.6-2.6 L 627) [id number] 04:08:00 Test Item Value Reference Range Interpretation Comments FIBRINOGEN LEVEL (BEAKER) (test 548 mg/dl 225-434 H code = 658) [id number] 04:08:00 Test Item Value Reference Range Interpretation Comments PARTIAL THROMBOPLASTIN TIME 37.7 seconds 22.5-36.0 H (BEAKER) (test code = 760) PROTHROMBIN [id number] 04:07:00 Test Item Value Reference Range Interpretation Comments PROTIME (BEAKER) (test code = 16.2 seconds 11.7-14.7 H 759) INR (BEAKER) (test code = 370) 1.3 <=5.9 RECOMMENDED COUMADIN/WARFARIN INR THERAPY RANGESSTANDARD DOSE: 2.0 - 3.0 Includes: PROPHYLAXIS forvenous thrombosis, systemic embolization; TREATMENT for venous thrombosis and/or pulmonary embolus.HIGH RISK: Target INR is 2.5-3.5 for patients with mechanical heart valves.[id number] 16:59:00 Test Item Value Reference Range Interpretation Comments ACTIVATED CLOTTING TIME 219 sec TEST ED AT [place] [address] ([facility]) (test code = JULIANO Osborne [place] 441) [address] BASIC METABOLIC [id number] 14:25:00 Test Item Value Reference Range Interpretation Comments SODIUM (BEAKER) 134 meq/L 136-145 L (test code = 381) POTASSIUM (BEAKER) 4.4 meq/L 3.5-5.1 (test code = 379) CHLORIDE (BEAKER) 103 meq/L 98-107 (test code = 382) CO2 (BEAKER) (test 22 meq/L 22-29 code = 355) BLOOD UREA NITROGEN 46 mg/dL 7-21 H ([facility]) (test code = 354) CREATININE (BEAKER) 2.16 mg/dL 0.57-1.25 H (test code = 358) GLUCOSE RANDOM 160 mg/dL 70-105 H (AKER) (test code = 652) CALCIUM (BEAKER) 7.8 mg/dL 8.4-10.2 L (test code = 697) EGFR (AKER) (test 23 mL/min/1.73 ESTIMA HINA GFR IS code = 1092) sq m NOT ACCURATE CREATININE CLEARANCE IN PREDICTING GLOMERULAR FILTRATION RATE . ESTIMATED GFR I S NOT APPLICABLE FOR DIALYSIS PATIEN TS. POCT-GLUCOSE [id number] 13:21:00 Test Item Value Reference Range Interpretation Comments POC-GLUCOSE METER 170 mg/dL 70-110 H TESTED AT [facility] 6720 (BEAKER) (test code = JULIANO [place] 1538) [address] POTASSIUM-STAT [id number] 13:20:00 Test Item Value Reference Range Interpretation Comments POTASSIUM (BEAKER) (test code = 4.2 meq/L 3.6-5.5 379) SODIUM NA-STAT [id number] 13:20:00 Test Item Value Reference Range Interpretation Comments SODIUM (BEAKER) (test code = 381) 133 meq/L 135-148 L HGB/HCT (H&H) - STAT [id number] 12:34:00 Test Item Value Reference Range Interpretation Comments HEMOGLOBIN (BEAKER) (test code = 10.8 g/dL 12.0-15.0 L 410) HEMATOCRIT (BEAKER) (test code = 32.0 % 36.0-45.0 L 411) POTASSIUM-STAT [id number] 08:15:00 Test Item Value Reference Range Interpretation Comments POTASSIUM (BEAKER) (test code = 4.1 meq/L 3.6-5.5 379) BLOOD GAS, [id number] 08:15:00 Test Item Value Reference Range Interpretation [...] code = 1819) 70.0 % SODIUM NA-STAT [id number] 08:15:00 Test Item Value Reference Range Interpretation Comments SODIUM (BEAKER) (test code = 381) 130 meq/L 135-148 L GLUCOSE-STAT [id number] 08:15:00 Test Item Value Reference Range Interpretation Comments GLUCOSE RANDOM (BEAKER) (test code 172 mg/dL 70-110 H = 652) HGB/HCT (H&H) - STAT [id number] 08:15:00 Test Item Value Reference Range Interpretation Comments HEMOGLOBIN (BEAKER) (test code = 8.8 g/dL 12.0-15.0 L 410) HEMATOCRIT (BEAKER) (test code = 26.0 % 36.0-45.0 L 411) BASIC METABOLIC [id number] 07:37:00 Test Item Value Reference Range Interpretation [...] PATIEN TS. CBC W/PLT COUNT & AUTO [id number] 07:20:00 Test Item Value Reference Range Interpretation [...] PERCENT (BEAKER) (test code = 2801) POCT-GLUCOSE [id number] 07:03:00 Test Item Value Reference Range Interpretation Comments POC-GLUCOSE METER 186 mg/dL 70-110 H TESTED AT [facility] 6720 (BEAKER) (test code = JULIANO REYE[place] 1538) [address] B-TYPE NATRIURETIC FACTOR (BNP)2017-06-10 12:44:00 Test Item Value Reference Range Interpretation Comments B-TYPE NATRIURETIC PEPTIDE 1264 pg/mL 0-100 H (BEAKER) (test code = 700) [id number] 12:36:00 Test Item Value Reference Range Interpretation Comments MAGNESIUM (BEAKER) (test code = 1.6 mg/dL 1.6-2.6 627) BASIC METABOLIC [id number] 12:36:00 Test Item Value Reference Range Interpretation [...] NOT APPLICABLE FOR DIALYSIS PATIEN TS. POCT-GLUCOSE [id number] 12:04:00 Test Item Value Reference Range Interpretation Comments POC-GLUCOSE METER 274 mg/dL 70-110 H TESTED AT [facility] 6720 (BEAKER) (test code = JULIANO Osborne [facility] 1538) [address] POCT-GLUCOSE [id number] 07:21:00 Test Item Value Reference Range Interpretation Comments POC-GLUCOSE METER 137 mg/dL 70-110 H TESTED AT [facility] 6720 (BEAKER) (test code = [facility] Dylon [facility] 1538) [address] BASIC METABOLIC [id number] 05:10:00 Test Item Value Reference Range Interpretation [...] 0-0 (BEAKER) (test code = 413) POCT-GLUCOSE [id number] 21:23:00 Test Item Value Reference Range Interpretation Comments POC-GLUCOSE METER 240 mg/dL 70-110 H TESTED AT [facility] 6720 (BEAKER) (test code = JULIANO REYEZ 1538) [address] POCT-GLUCOSE [id number] 16:42:00 Test Item Value Reference Range Interpretation Comments POC-GLUCOSE METER 234 mg/dL 70-110 H TESTED AT [place] [address] ([facility]) (test code = JULIANO Osborne [facility] 1538) [address] POCT-GLUCOSE [id number] 13:22:00 Test Item Value Reference Range Interpretation Comments POC-GLUCOSE METER 166 mg/dL 70-110 H TESTED AT [place] [address] ([facility]) (test code = JULIANO Osborne [facility] 1538) [address] RAD, CHEST, 1 VIEW, NON [id number] 09:43:00Reason for exam:->s/p ACBShould this be performed [...] Lynda Ring Verified Date/Time: 05/31/2017 09:43:30 ReadingLocation: [facility] B1 C013X Ortho Consult Reading Room POCT-GLUCOSE [id number] 06:57:00 Test Item Value Reference Range Interpretation Comments POC-GLUCOSE METER 136 mg/dL 70-110 H TESTED AT [place] [address] ([facility]) (test code = JULIANO Osborne [facility] 1538) 16597 CALCIUM, [id number] 06:41:00 Test Item Value Reference Range Interpretation Comments CALCIUM IONIZED ([facility]) (test 1.10 mmol/L 1.12-1.27 L code = 698) PH, BLOOD ([facility]) (test code = 7.42 1810) [id number] 06:17:00 Test Item Value Reference Range Interpretation Comments PHOSPHORUS ([facility]) (test code = 3.3 mg/dL 2.3-4.7 604) [id number] 06:17:00 Test Item Value Reference Range Interpretation Comments MAGNESIUM (BEAKER) (test code = 1.8 mg/dL 1.6-2.6 627) BASIC METABOLIC [id number] 06:17:00 Test Item Value Reference Range Interpretation [...] PATIEN TS. CBC W/PLT COUNT & AUTO [id number] 05:07:00 Test Item Value Reference Range Interpretation [...] % 0-1 PERCENT (BEAKER) (test code = 2807) POCT-GLUCOSE [id number] 20:56:00 Test Item Value Reference Range Interpretation Comments POC-GLUCOSE METER 196 mg/dL 70-110 H TESTED AT [place] [address] ([facility]) (test code = [facility] 1538) [address]71 POCT-GLUCOSE [id number] 16:42:00 Test Item Value Reference Range Interpretation Comments POC-GLUCOSE METER 196 mg/dL 70-110 H TESTED AT [place] [address] ([facility]) (test code = [facility] 1538) [address] POCT-GLUCOSE [id number] 11:45:00 Test Item Value Reference Range Interpretation Comments POC-GLUCOSE METER 215 mg/dL 70-110 H TESTED AT [place] [address] ([facility]) (test code = [facility] 1538) [address] RAD, CHEST, 1 VIEW, NON [id number] 11:15:00Reason for exam:->s/p ACBShould this be performed at the bedside?->YesFINAL REPORT Chest one view compared to May 28, 2017 Discussion: Airspace opacities are seen in both lower lung regions, probably atelectasis. Correlate clinically for infection. I could not exclude small effusions. No pneumothorax. Upper lungs clear. Signed: Jeannette Navaeport Verified Date/Time: 05/30/2017 11:15:07 Reading Location: [facility] Radiology Reading Room CALCIUM, [id number] 09:21:00 Test Item Value Reference Range Interpretation Comments CALCIUM IONIZED (BEAKER) (test 1.11 mmol/L 1.12-1.27 L code = 698) PH, BLOOD (BEAKER) (test code = 7.36 1810) BASIC METABOLIC [id number] 07:37:00 Test Item Value Reference Range Interpretation [...] S NOT APPLICABLE FOR DIALYSIS PATIEN TS. [id number] 07:28:00 Test Item Value Reference Range Interpretation Comments PHOSPHORUS (BEAKER) (test code = 3.8 mg/dL 2.3-4.7 604) [id number] 07:28:00 Test Item Value Reference Range Interpretation Comments MAGNESIUM (BEAKER) (test code = 1.9 mg/dL 1.6-2.6 627) CBC W/PLT COUNT & AUTO [id number] 07:26:00 Test Item Value Reference Range Interpretation [...] 417) IMMATURE GRANULOCYTES-RELATIVE 1 % 0-1 PERCENT ([facility]) (test code = 2801) POCT-GLUCOSE [id number] 07:21:00 Test Item Value Reference Range Interpretation Comments POC-GLUCOSE METER 146 mg/dL 70-110 H TESTED AT [place] [address] ([facility]) [facility] 1538) [address] POCT-GLUCOSE [id number] 22:02:00 Test Item Value Reference Range Interpretation Comments POC-GLUCOSE METER 201 mg/dL 70-110 H TESTED AT [place] [address] ([facility]) ([facility] = [facility] 1538) [address] POCT-GLUCOSE [id number] 18:27:00 Test Item Value Reference Range Interpretation Comments POC-GLUCOSE METER 240 mg/dL 70-110 H TESTED AT [place] [address] ([facility]) (test code = [facility] Dylon [facility] 1538) [address] POCT-GLUCOSE [id number] 12:13:00 Test Item Value Reference Range Interpretation Comments POC-GLUCOSE METER 193 mg/dL 70-110 H TESTED AT [place] [address] ([facility]) (test code = [facility] Dylon [facility] 1538) [address] POCT-GLUCOSE [id number] 09:02:00 Test Item Value Reference Range Interpretation Comments POC-GLUCOSE METER 132 mg/dL 70-110 H TESTED AT [place] [address] ([facility]) (test code = [facility] Dylon [facility] 1538) [address] CALCIUM, [id number] 05:42:00 Test Item Value Reference Range Interpretation Comments CALCIUM IONIZED ([facility]) (test 1.12 mmol/L 1.12-1.27 code = 698) PH, BLOOD ([facility]) (test code = 7.34 1810) COMPREHENSIVE METABOLIC [id number] 05:33:00 Test Item Value Reference Range Interpretation [...] S NOT APPLICABLE FOR DIALYSIS PATIEN TS. [id number] 05:32:00 Test Item Value Reference Range Interpretation Comments PHOSPHORUS (BEAKER) (test code = 3.6 mg/dL 2.3-4.7 604) [id number] 05:32:00 Test Item Value Reference Range Interpretation Comments MAGNESIUM (BEAKER) (test code = 2.2 mg/dL 1.6-2.6 627) CBC W/PLT COUNT & AUTO [id number] 05:01:00 Test Item Value Reference Range Interpretation [...] PERCENT (BEAKER) (test code = 2801) POCT-GLUCOSE [id number] 21:04:00 Test Item Value Reference Range Interpretation Comments POC-GLUCOSE METER 165 mg/dL 70-110 H TESTED AT [place] [address] ([facility]) (test code = JULIANO Osborne [facility] 1538) [address] POCT-GLUCOSE [id number] 17:30:00 Test Item Value Reference Range Interpretation Comments POC-GLUCOSE METER 236 mg/dL 70-110 H TESTED AT [place] [address] ([facility]) (test code = JULIANO Osborne [facility] 1538) [address] RAD, CHEST, 1 VIEW, NON [id number] 13:53:00Reason for exam:->assess for ill-defined opacityShould this [...] congested. Impression: No change. Signed: Luis Alberto Roach MDReport Verified Date/Time: 05/28/2017 13:53:03 Reading Location: [address] Radiology Reading Room POCT-GLUCOSE [id number] 11:53:00 Test Item Value Reference Range Interpretation Comments POC-GLUCOSE METER 215 mg/dL 70-110 H TESTED AT [place] [address] ([facility]) (test code = JULIANO Osborne [facility] 1538) [address] POCT-GLUCOSE [id number] 08:32:00 Test Item Value Reference Range Interpretation Comments POC-GLUCOSE METER 168 mg/dL 70-110 H TESTED AT [place] [address] ([facility]) (test code = JULIANO Osborne [facility] 1538) [address] CALCIUM, [id number] 05:44:00 Test Item Value Reference Range Interpretation Comments CALCIUM IONIZED ([facility]) (test 1.09 mmol/L 1.12-1.27 L code = 698) PH, BLOOD ([facility]) (test code = 7.38 1810) [id number] 05:44:00 Test Item Value Reference Range Interpretation Comments PHOSPHORUS (BEAKER) (test code = 3.5 mg/dL 2.3-4.7 604) [id number] 05:44:00 Test Item Value Reference Range Interpretation Comments MAGNESIUM (BEAKER) (test code = 1.9 mg/dL 1.6-2.6 627) BASIC METABOLIC [id number] 05:44:00 Test Item Value Reference Range Interpretation [...] PATIEN TS. CBC W/PLT COUNT & AUTO [id number] 05:05:00 Test Item Value Reference Range Interpretation [...] PERCENT (BEAKER) (test code = 2801) POCT-GLUCOSE [id number] 21:03:00 Test Item Value Reference Range Interpretation Comments POC-GLUCOSE METER 173 mg/dL 70-110 H TESTED AT [place] [address] ([facility]) (test code = JULIANO [place] 1538) [address] [id number] 18:15:00 Test Item Value Reference Range Interpretation Comments ACTIVATED CLOTTING TIME 147 sec TEST ED AT [place] [address] ([facility]) (test code = JULIANO [place] 441) [id number] 18:15:00 Test Item Value Reference Range Interpretation Comments ACTIVATED CLOTTING TIME 246 sec TEST ED AT [place] [address] ([facility]) (test code = JULIANO Osborne [facility] [place] [address]) [address] POCT-GLUCOSE [id number] 12:39:00 Test Item Value Reference Range Interpretation Comments POC-GLUCOSE METER 219 mg/dL 70-110 H TESTED AT [place] [address] ([facility]) (test code = JULIANO Osborne [place] 1538) [address] RAD, CHEST, 1 VIEW, NON [id number] 10:11:00Reason for exam:->pl effusionShould this be performed at the bedside?->YesFINAL REPORT Chest one view compared to May 26 Discussion: There is cardiac prominence. Upper lungs are clear. Ill-defined basilar densities are similar probably atelectasis. No gross effusion or pneumothorax with bilateral chest tubes in place. Signed: Jeannette Nava Verified Date/Time: 05/27/2017 10:11:44 Reading Location: [facility] Radiology Reading Room POCT-GLUCOSE METER 2017-05-27 07:05:00 Test Item Value Reference Range Interpretation Comments POC-GLUCOSE METER 167 mg/dL 70-110 H TESTED AT [place] [address] ([facility]) (test code = JULIANO Osborne [facility] 1538) [address] CALCIUM, [id number] 06:20:00 Test Item Value Reference Range Interpretation Comments CALCIUM IONIZED (AKER) (test 0.98 mmol/L 1.12-1.27 L code = 698) PH, BLOOD ([facility]) (test code = 7.50 1810) [id number] 04:56:00 Test Item Value Reference Range Interpretation Comments PHOSPHORUS (BEAKER) (test code = 2.6 mg/dL 2.3-4.7 604) [id number] 04:56:00 Test Item Value Reference Range Interpretation Comments MAGNESIUM (BEAKER) (test code = 2.0 mg/dL 1.6-2.6 627) BASIC METABOLIC [id number] 04:56:00 Test Item Value Reference Range Interpretation [...] PATIEN TS. CBC W/PLT COUNT & AUTO [id number] 04:36:00 Test Item Value Reference Range Interpretation [...] PERCENT (BEAKER) (test code = 2801) POCT-GLUCOSE [id number] 21:29:00 Test Item Value Reference Range Interpretation Comments POC-GLUCOSE METER 147 mg/dL 70-110 H TESTED AT [place] [address] ([facility]) (test code = [facility] 1538) [address] POCT-GLUCOSE [id number] 17:51:00 Test Item Value Reference Range Interpretation Comments POC-GLUCOSE METER 224 mg/dL 70-110 H TESTED AT [place] [address] ([facility]) (test code = [facility] 1538) [address] POCT-GLUCOSE [id number] 13:53:00 Test Item Value Reference Range Interpretation Comments POC-GLUCOSE METER 182 mg/dL 70-110 H TESTED AT [place] [address] ([facility]) (test code = [facility] 1538) [address] RAD, CHEST, 1 VIEW, NON [id number] 08:44:00Reason for exam:->pl effusionShould this be performed [...] tube. No other significant change. Signed: Olaf Ortega MDReport Verified Date/Time: 05/26/2017 08:44:25 Reading Location: [address] Radiology Reading Room POCT- GLUCOSE [id number] 07:43:00 Test Item Value Reference Range Interpretation Comments POC-GLUCOSE METER 113 mg/dL 70-110 H TESTED AT [facility] 6720 (BEAKER) (test code = JULIANO [place] 1538) [address] CALCIUM, [id number] 06:31:00 Test Item Value Reference Range Interpretation Comments CALCIUM IONIZED (BEAKER) (test 1.07 mmol/L 1.12-1.27 L code = 698) PH, BLOOD (BEAKER) (test code = 7.38 1810) [id number] 04:51:00 Test Item Value Reference Range Interpretation Comments PHOSPHORUS (BEAKER) (test code = 3.2 mg/dL 2.3-4.7 604) [id number] 04:51:00 Test Item Value Reference Range Interpretation Comments MAGNESIUM (BEAKER) (test code = 2.1 mg/dL 1.6-2.6 627) BASIC METABOLIC [id number] 04:51:00 Test Item Value Reference Range Interpretation [...] PATIEN TS. CBC W/PLT COUNT & AUTO [id number] 04:27:00 Test Item Value Reference Range Interpretation [...] PERCENT (BEAKER) (test code = 2801) POCT-GLUCOSE [id number] 23:48:00 Test Item Value Reference Range Interpretation Comments POC-GLUCOSE METER 123 mg/dL 70-110 H TESTED AT [place] [address] [facility] (test code = [facility] 1538) [address] POCT-GLUCOSE [id number] 16:46:00 Test Item Value Reference Range Interpretation Comments POC-GLUCOSE METER 178 mg/dL 70-110 H TESTED AT [place] [address] ([facility]) (test code = [facility] 1538) [address] BASIC METABOLIC [id number] 05:53:00 Test Item Value Reference Range Interpretation [...] S NOT APPLICABLE FOR DIALYSIS PATIEN TS. [id number] 05:52:00 Test Item Value Reference Range Interpretation Comments PHOSPHORUS (BEAKER) (test code = 4.2 mg/dL 2.3-4.7 604) [id number] 05:52:00 Test Item Value Reference Range Interpretation Comments MAGNESIUM (BEAKER) (test code = 2.3 mg/dL 1.6-2.6 627) CALCIUM, [id number] 05:27:00 Test Item Value Reference Range Interpretation Comments CALCIUM IONIZED (BEAKER) (test 1.12 mmol/L 1.12-1.27 code = 698) PH, BLOOD (BEAKER) (test code = 7.38 1810) CBC W/PLT COUNT & AUTO [id number] 05:07:00 Test Item Value Reference Range Interpretation [...] = 2801) RAD, CHEST, 1 VIEW, NON [id number] 04:45:00Reason for exam:->pl effusionShould this be performed at the bedside?->YesFINAL REPORT RAD, CHEST, 1 VIEW, NON DEPT INDICATION: pl effusion COMPARISON:Prior day's exam FINDINGS: Portable frontal view of the chest. IMPRESSION: Support Lines: Stable.Lungs and pleura: Unchanged airspace and pleural opacities. No pneumothorax.Heart and mediastinum: Stable contours. Stable surgical changes.Additional findings: None. Signed: JR Boswell Robert MDReport Verified Date/Time: 05/25/2017 04:45:08 Reading Location: [facility] C013Y CT Body Reading Room POCT-GLUCOSE [id number] 01:52:00 Test Item Value Reference Range Interpretation Comments POC-GLUCOSE METER 126 mg/dL 70-110 H TESTED AT [facility] 6720 ([facility]) (test code = [facility] 1538) [address] POCT-GLUCOSE [id number] 13:07:00 Test Item Value Reference Range Interpretation Comments POC-GLUCOSE METER 118 mg/dL 70-110 H TESTED AT [facility] 6720 ([facility]) (test code = [facility] 1538) [address] BRONCHIAL CULTURE + GRAM [id number] 11:35:00 Test Item Value Reference Range Interpretation Comments CULTURE (BEAKER) (test code = 1095) [...] <1+ gram (BEAKER) (test code = positive 237760) cocci in pairs GRAM STAIN RESULT 1+ gram (BEAKER) (test code = variable rods 164669) 1+ Normal respiratory todd presentRAD, CHEST, 1 VIEW, NON [id number] 06:50:00Reason for exam:->pl effusionShould this be performed at the bedside?->YesFINAL REPORT RAD, CHEST, 1 VIEW, NON DEPT INDICATION: pl effusion COMPARISON:Prior day's exam FINDINGS: Portable frontal view of the chest. IMPRESSION: Support Lines: Stable.Lungs and pleura: Unchanged airspace and pleural opacities. No pneumothorax.Heart and mediastinum: Stable contours. Stable surgical changes.Additional findings: None. Signed: JR Elbert, Kelly ALEXANDREeport Verified Date/Time: 05/24/2017 06:50:08 Reading Location: [facility] B1 C013Y CT Body Reading Room BASIC METABOLIC [id number] 04:19:00 Test Item Value Reference Range Interpretation [...] NOT APPLICABLE FOR DIALYSIS PATIEN TS. CALCIUM, [id number] 04:16:00 Test Item Value Reference Range Interpretation Comments CALCIUM IONIZED (BEAKER) (test 1.06 mmol/L 1.12-1.27 L code = 698) PH, BLOOD (BEAKER) (test code = 7.40 1810) [id number] 04:11:00 Test Item Value Reference Range Interpretation Comments PHOSPHORUS (BEAKER) (test code = 6.0 mg/dL 2.3-4.7 H 604) [id number] 04:11:00 Test Item Value Reference Range Interpretation Comments MAGNESIUM (BEAKER) (test code = 2.4 mg/dL 1.6-2.6 627) CBC W/PLT COUNT & AUTO [id number] 03:50:00 Test Item Value Reference Range Interpretation [...] 417) IMMATURE GRANULOCYTES-RELATIVE 0 % 0-1 PERCENT (ROBERT) (test code = 2801) POCT-GLUCOSE [id number] 20:45:00 Test Item Value Reference Range Interpretation Comments POC-GLUCOSE METER 143 mg/dL 70-110 H TESTED AT [facility] 6720 [facility] (test code = [facility] 1538) [address] POCT-GLUCOSE [id number] 20:45:00 Test Item Value Reference Range Interpretation Comments POC-GLUCOSE METER 145 mg/dL 70-110 H TESTED AT [facility] 6720 ([facility]) (test code = [facility] 1538) [address] [id number] 13:37:00 Test Item Value Reference Range Interpretation Comments PREALBUMIN (ROBERT) 10 mg/dL 14-45 L Specimen slightly (test code = 586) hemolyzed OXYGEN SATURATION, [id number] 12:31:00 Test Item Value Reference Range Interpretation Comments O2 SATURATION (MEASURED) ([facility]) 94.5 % (test code = 1455) [id number] 11:02:00 Test Item Value Reference Range Interpretation Comments PREALBUMIN (BEDANIELA) (test code = 10 mg/dL 14-45 L 586) RAD, CHEST, 1 VIEW, NON [id number] 05:14:00while patient is intubated or has chest [...] MDReport Verified Date/Time: 05/23/2017 05:14:04 Reading Location: [facility] C013Y CT Body Reading Room BASIC METABOLIC [id number] 03:48:00 Test Item Value Reference Range Interpretation [...] S NOT APPLICABLE FOR DIALYSIS PATIEN TS. [id number] 03:46:00 Test Item Value Reference Range Interpretation Comments MAGNESIUM (BEAKER) 2.4 mg/dL 1.6-2.6 Specimen slightly (test code = 627) hemolyzed [id number] 03:46:00 Test Item Value Reference Range Interpretation Comments PHOSPHORUS (BEAKER) 6.5 mg/dL 2.3-4.7 H Specimen slightly (test code = 604) hemolyzed CBC W/PLT COUNT & AUTO [id number] 03:26:00 Test Item Value Reference Range Interpretation [...] (BEAKER) (test code = 2801) BLOOD GAS, [id number] 03:18:00 Test Item Value Reference Range Interpretation [...] (test code = 1819) 36.0 % CALCIUM, [id number] 16:32:00 Test Item Value Reference Range Interpretation Comments CALCIUM IONIZED (BEAKER) (test 1.11 mmol/L 1.12-1.27 L code = 698) PH, BLOOD (BEAKER) (test code = 7.39 1810) BASIC METABOLIC [id number] 15:43:00 Test Item Value Reference Range Interpretation [...] NOT APPLICABLE FOR DIALYSIS PATIEN TS. POCT-GLUCOSE [id number] 12:53:00 Test Item Value Reference Range Interpretation Comments POC-GLUCOSE METER 118 mg/dL 70-110 H TESTED AT [facility] 6720 (BEAKER) (test code = JULIANO REYEZ 1538) [address] BLOOD GAS, [id number] 10:42:00 Test Item Value Reference Range Interpretation [...] (test code = 1819) 40.0 % POCT-GLUCOSE [id number] 06:46:00 Test Item Value Reference Range Interpretation Comments POC-GLUCOSE METER 106 mg/dL 70-110 TESTED AT [facility] 6720 (BEAKER) (test code = J[place]IANO [place] 1538) [address] RAD, CHEST, 1 VIEW, NON [id number] 05:05:00while patient is intubated or has chest [...] MDReport Verified Date/Time: 05/22/2017 05:05:00 Reading Location: [facility] B1 C013Y CT Body ReadingRoom BASIC METABOLIC [id number] 05:00:00 Test Item Value Reference Range Interpretation [...] S NOT APPLICABLE FOR DIALYSIS PATIEN TS. [id number] 04:41:00 Test Item Value Reference Range Interpretation Comments PHOSPHORUS (BEAKER) (test code = 6.4 mg/dL 2.3-4.7 H 604) [id number] 04:41:00 Test Item Value Reference Range Interpretation Comments MAGNESIUM (BEAKER) (test code = 2.6 mg/dL 1.6-2.6 627) CALCIUM, [id number] 04:26:00 Test Item Value Reference Range Interpretation Comments CALCIUM IONIZED (BEAKER) (test 1.09 mmol/L 1.12-1.27 L code = 698) PH, BLOOD (BEAKER) (test code = 7.40 1810) OXYGEN SATURATION, [id number] 04:25:00 Test Item Value Reference Range Interpretation Comments O2 SATURATION (MEASURED) (BEAKER) 77.0 % (test code = 1455) CBC W/PLT COUNT & AUTO [id number] 04:17:00 Test Item Value Reference Range Interpretation [...] code = 2801) LACTIC ACID, ARTERIAL, WHOLE [id number] 00:07:00 Test Item Value Reference Range Interpretation Comments LACTATE BLOOD 1.0 mmol/L 0.5-2.2 Specimen sligh tly ARTERIAL (2) (BEAKER) hemoly zed (test code = 2874) Effective 08/02/2015: Units/Reference Range ChangeNew: 0.5-2.2 mmol/L Previous: 5-20 mg/dLPOCT-GLUCOSE [id number] 23:47:00 Test Item Value Reference Range Interpretation Comments POC-GLUCOSE METER 180 mg/dL 70-110 H TESTED AT [facility] 6720 (BEAKER) (test code = [place]O [place] 1537) [address] BLOOD GAS, [id number] 23:46:00 Test Item Value Reference Range Interpretation [...] code = 1819) 100.0 % SODIUM NA-STAT [id number] 23:46:00 Test Item Value Reference Range Interpretation Comments SODIUM (BEAKER) (test code = 381) 134 meq/L 135-148 L GLUCOSE-STAT [id number] 23:46:00 Test Item Value Reference Range Interpretation Comments GLUCOSE RANDOM (BEAKER) (test code 119 mg/dL 70-110 H = 652) HGB/HCT (H&H) - STAT [id number] 23:46:00 Test Item Value Reference Range Interpretation Comments HEMOGLOBIN (BEAKER) (test code = 8.8 g/dL 12.0-15.0 L 410) HEMATOCRIT (BEAKER) (test code = 26.0 % 36.0-45.0 L 411) OXYGEN SATURATION, [id number] 23:45:00 Test Item Value Reference Range Interpretation Comments O2 SATURATION (MEASURED) (BEAKER) 68.1 % (test code = 1455) POTASSIUM-STAT [id number] 23:45:00 Test Item Value Reference Range Interpretation Comments POTASSIUM (BEAKER) (test code = 5.5 meq/L 3.6-5.5 379) POCT-GLUCOSE [id number] 20:58:00 Test Item Value Reference Range Interpretation Comments POC-GLUCOSE METER 133 mg/dL 70-110 H TESTED AT [place] [address] [facility] (test code = JULIANO Osborne [facility] 1538) [address] POCT-GLUCOSE [id number] 17:58:00 Test Item Value Reference Range Interpretation Comments POC-GLUCOSE METER 210 mg/dL 70-110 H TESTED AT [place] [address] [facility] (test code = JULIANO Osborne [facility] 1538) [address] POCT-GLUCOSE [id number] 17:58:00 Test Item Value Reference Range Interpretation Comments POC-GLUCOSE METER 211 mg/dL 70-110 H TESTED AT [place] [address] ([facility]) (test code = JULIANO Osborne [facility] 1538) [address] POCT-GLUCOSE [id number] 17:58:00 Test Item Value Reference Range Interpretation Comments POC-GLUCOSE METER 232 mg/dL 70-110 H TESTED AT [place] [address] ([facility]) (test code = JULIANO Osborne [facility] 1538) [address] POCT-GLUCOSE [id number] 17:58:00 Test Item Value Reference Range Interpretation Comments POC-GLUCOSE METER 262 mg/dL 70-110 H TESTED AT [place] [address] ([facility]) (test code = [facility] Dylon [facility] 1538) [address] BLOOD GAS, [id number] 17:01:00 Test Item Value Reference Range Interpretation [...] (test code = 1819) 60.0 % POTASSIUM-STAT [id number] 17:00:00 Test Item Value Reference Range Interpretation Comments POTASSIUM (BEAKER) (test code = 4.8 meq/L 3.6-5.5 379) POCT-GLUCOSE [id number] 15:52:00 Test Item Value Reference Range Interpretation Comments POC-GLUCOSE METER 267 mg/dL 70-110 H TESTED AT [facility] 6720 (BEAKER) (test code = JULIANO Osborne [facility] 1538) [address] POCT-GLUCOSE [id number] 14:42:00 Test Item Value Reference Range Interpretation Comments POC-GLUCOSE METER 231 mg/dL 70-110 H TESTED AT [facility] 6720 (BEAKER) (test code = JULIANO Osborne [facility] 1538) [address] BODY FLUID CELL COUNT WITH [id number] 14:41:00 Test Item Value Reference Range Interpretation [...] Tube (test code = 2873) BASIC METABOLIC [id number] 14:11:00 Test Item Value Reference Range Interpretation [...] S NOT APPLICABLE FOR DIALYSIS PATIEN TS. [id number] 14:08:00 Test Item Value Reference Range Interpretation Comments PHOSPHORUS (BEAKER) (test code = 7.2 mg/dL 2.3-4.7 H 604) [id number] 14:08:00 Test Item Value Reference Range Interpretation Comments MAGNESIUM (BEAKER) (test code = 2.6 mg/dL 1.6-2.6 627) POCT-GLUCOSE [id number] 12:49:00 Test Item Value Reference Range Interpretation Comments POC-GLUCOSE METER 224 mg/dL 70-110 H TESTED AT [facility] 6720 (ROBERT) (test code = JULIANO Osborne [facility] 1538) [address] POCT-GLUCOSE [id number] 12:49:00 Test Item Value Reference Range Interpretation Comments POC-GLUCOSE METER 248 mg/dL 70-110 H TESTED AT [facility] 6720 [facility] (test code = JULIANO Osborne [facility] 1538) [address] RAD, CHEST, 1 VIEW, NON [id number] 12:32:00Reason for exam:->re-intubationShould this be performed at [...] Verified Date/Time: 05/21/2017 12:32:08 Reading Location: [facility] Radiology Reading Room POTASSIUM-STAT [id number] 12:28:00 Test Item Value Reference Range Interpretation Comments POTASSIUM (BEAKER) (test code = 5.5 meq/L 3.6-5.5 379) BLOOD GAS, [id number] 12:28:00 Test Item Value Reference Range Interpretation [...] code = 1819) 100.0 % BLOOD GAS, [id number] 10:53:00 Test Item Value Reference Range Interpretation [...] 36.0 % RAD, CHEST, 1 VIEW, NON [id number] 08:46:00while patient is intubated or has chest [...] MDReport Verified Date/Time: 05/21/2017 08:46:27 Reading Location: [facility] Radiology Reading Room BLOOD GAS, [id number] 05:41:00 Test Item Value Reference Range Interpretation [...] (BEAKER) (test code = 1819) 40 CALCIUM, [id number] 04:35:00 Test Item Value Reference Range Interpretation Comments CALCIUM IONIZED (BEAKER) (test 1.13 mmol/L 1.12-1.27 code = 698) PH, BLOOD (BEAKER) (test code = 7.32 1810) BLOOD GAS, [id number] 04:28:00 Test Item Value Reference Range Interpretation [...] (BEAKER) (test code = 1819) 40.0 % [id number] 04:20:00 Test Item Value Reference Range Interpretation Comments PHOSPHORUS (BEAKER) (test code = 6.2 mg/dL 2.3-4.7 H 604) [id number] 04:20:00 Test Item Value Reference Range Interpretation Comments MAGNESIUM (BEAKER) (test code = 2.4 mg/dL 1.6-2.6 627) HEPATIC FUNCTION [id number] 04:20:00 Test Item Value Reference Range Interpretation [...] = 11 U/L 6-55 347) BASIC METABOLIC [id number] 04:20:00 Test Item Value Reference Range Interpretation [...] APPLICABLE FOR DIALYSIS PATIEN TS. OXYGEN SATURATION, [id number] 04:18:00 Test Item Value Reference Range Interpretation Comments O2 SATURATION (MEASURED) (BEAKER) 68.0 % (test code = 1455) LACTIC ACID, ARTERIAL, WHOLE [id number] 04:12:00 Test Item Value Reference Range Interpretation Comments LACTATE BLOOD ARTERIAL (2) 1.0 mmol/L 0.5-2.2 (BEAKER) (test code = 2874) Effective 08/02/2015: Units/Reference Range ChangeNew: 0.5-2.2 mmol/L Previous: 5-20 mg/dLCBC W/PLT COUNT & AUTO [id number] 04:00:00 Test Item Value Reference Range Interpretation [...] (BEAKER) (test code = 2801) BLOOD GAS, [id number] 00:06:00 Test Item Value Reference Range Interpretation [...] (BEAKER) (test code = 1819) 40.0 % [id number] 18:55:00 Test Item Value Reference Range Interpretation Comments PHOSPHORUS (BEAKER) (test code = 4.8 mg/dL 2.3-4.7 H 604) [id number] 18:55:00 Test Item Value Reference Range Interpretation Comments MAGNESIUM (BEAKER) (test code = 2.3 mg/dL 1.6-2.6 627) BASIC METABOLIC [id number] 18:55:00 Test Item Value Reference Range Interpretation [...] DIALYSIS PATIEN TS. LACTIC ACID, ARTERIAL, WHOLE [id number] 18:53:00 Test Item Value Reference Range Interpretation Comments LACTATE BLOOD 0.9 mmol/L 0.5-2.2 Specimen sligh tly ARTERIAL (2) (BEAKER) hemoly zed (test code = 2874) Effective 08/02/2015: Units/Reference Range ChangeNew: 0.5-2.2 mmol/L Previous: 5-20 mg/dLRAD, CHEST, 1 VIEW, NON [id number] 18:44:00Reason for exam:- >postop cardiacShould this be [...] atelectasis. Pneumonitis cannot be excluded. Signed: Miguel Bhakta MDReport Verified Date/Time: 05/20/2017 18:44:30 Reading Location: [facility] C013W Consult Reading Room Electronically signed by: MIGUEL BHAKTA M.D. on05/20/2017 06:44 PMCBC W/PLT COUNT & AUTO [id number] 18:38:00 Test Item Value Reference Range Interpretation [...] (BEAKER) (test code = 2801) OXYGEN SATURATION, [id number] 18:36:00 Test Item Value Reference Range Interpretation Comments O2 SATURATION (MEASURED) (BEAKER) 72.5 % (test code = 1455) From distal port of IJ central venous catheterSODIUM NA-STAT [id number] 18:30:00 Test Item Value Reference Range Interpretation Comments SODIUM (BEAKER) (test code = 381) 132 meq/L 135-148 L HGB/HCT (H&H) - STAT [id number] 18:30:00 Test Item Value Reference Range Interpretation Comments HEMOGLOBIN (BEAKER) (test code = 9.4 g/dL 12.0-15.0 L 410) HEMATOCRIT (BEAKER) (test code = 28.0 % 36.0-45.0 L 411) GLUCOSE-STAT [id number] 18:30:00 Test Item Value Reference Range Interpretation Comments GLUCOSE RANDOM (BEAKER) (test code 159 mg/dL 70-110 H = 652) BLOOD GAS, [id number] 18:30:00 Test Item Value Reference Range Interpretation [...] (test code = 1819) 60.0 % CALCIUM, [id number] 18:30:00 Test Item Value Reference Range Interpretation Comments CALCIUM IONIZED (BEAKER) (test 0.94 mmol/L 1.12-1.27 L code = 698) PH, BLOOD (BEAKER) (test code = 7.34 1810) POTASSIUM-STAT [id number] 18:28:00 Test Item Value Reference Range Interpretation [...] (test 0.0 % 0.0-5.0 code = 1414) [id number] 17:53:00 Test Item Value Reference Range Interpretation Comments ACTIVATED CLOTTING TIME 103 sec TEST ED AT [facility] 6720 (BEAKER) (test code = [place] 441) [address] [id number] 17:53:00 Test Item Value Reference Range Interpretation Comments ACTIVATED CLOTTING TIME 466 sec TEST ED AT [place] [address] ([facility]) (test code = [place] 441) [address] [id number] 17:53:00 Test Item Value Reference Range Interpretation Comments ACTIVATED CLOTTING TIME 543 sec TEST ED AT [place] [address] ([facility]) (test code = [place]O [place] 441) [address] [id number] 17:53:00 Test Item Value Reference Range Interpretation Comments ACTIVATED CLOTTING TIME 549 sec TEST ED AT [place] [address] ([facility]) (test code = [place] 441) [address] [id number] 17:53:00 Test Item Value Reference Range Interpretation Comments ACTIVATED CLOTTING TIME 632 sec TEST ED AT [place] [address] ([facility]) (test code = [place] 441) [address] [id number] 17:53:00 Test Item Value Reference Range Interpretation Comments ACTIVATED CLOTTING TIME 494 sec TEST ED AT [place] [address] ([facility]) (test code = [place] 441) [id number] 17:53:00 Test Item Value Reference Range Interpretation Comments ACTIVATED CLOTTING TIME 587 sec TEST ED AT [place] [address] ([facility]) (test code = [place] [address]) [id number] 17:53:00 Test Item Value Reference Range Interpretation Comments ACTIVATED CLOTTING TIME 626 sec TEST ED AT [place] [address] ([facility]) (test code = [place] [address]) [id number] 17:52:00 Test Item Value Reference Range Interpretation Comments ACTIVATED CLOTTING TIME 808 sec TEST ED AT [place] [address] ([facility]) (test code = [place] [address]) [id number] 16:54:00 Test Item Value Reference Range Interpretation Comments PARTIAL THROMBOPLASTIN TIME 40.2 seconds 22.5-36.0 H ([facility]) (test code = 760) [id number] 16:53:00 Test Item Value Reference Range Interpretation Comments FIBRINOGEN LEVEL (BEAKER) (test 306 mg/dl 225-434 code = 658) PROTHROMBIN [id number] 16:50:00 Test Item Value Reference Range Interpretation Comments PROTIME (BEAKER) (test code = 19.6 seconds 11.7-14.7 H 759) INR (BEAKER) (test code = 370) 1.7 <=5.9 RECOMMENDED COUMADIN/WARFARIN INR THERAPY RANGESSTANDARD DOSE: 2.0 - 3.0 Includes: PROPHYLAXIS forvenous thrombosis, systemic embolization; TREATMENT for venous thrombosis and/or pulmonary embolus.HIGH RISK: Target INR is 2.5-3.5 for patients with mechanical heart valves.PLATELET [id number] 16:45:00 Test Item Value Reference Range Interpretation Comments PLATELET COUNT (BEAKER) (test 136 K/CU MM 150-450 L code = 756) POTASSIUM-STAT [id number] 16:15:00 Test Item Value Reference Range Interpretation Comments POTASSIUM (BEAKER) (test code = 4.9 meq/L 3.6-5.5 379) BLOOD GAS, [id number] 16:15:00 Test Item Value Reference Range Interpretation [...] code = 1819) 100.0 % SODIUM NA-STAT [id number] 16:15:00 Test Item Value Reference Range Interpretation Comments SODIUM (BEAKER) (test code = 381) 131 meq/L 135-148 L GLUCOSE-STAT [id number] 16:15:00 Test Item Value Reference Range Interpretation Comments GLUCOSE RANDOM (BEAKER) (test code 198 mg/dL 70-110 H = 652) HGB/HCT (H&H) - STAT [id number] 16:15:00 Test Item Value Reference Range Interpretation Comments HEMOGLOBIN (BEAKER) (test code = 7.5 g/dL 12.0-15.0 L 410) HEMATOCRIT (BEAKER) (test code = 22.0 % 36.0-45.0 L 411) CALCIUM, [id number] 16:14:00 Test Item Value Reference Range Interpretation Comments CALCIUM IONIZED (BEAKER) (test 0.91 mmol/L 1.12-1.27 L code = 698) PH, BLOOD (BEAKER) (test code = 7.39 1810) BLOOD GAS, [id number] 15:39:00 Test Item Value Reference Range Interpretation [...] code = 1819) 70.0 % SODIUM NA-STAT [id number] 15:39:00 Test Item Value Reference Range Interpretation Comments SODIUM (BEAKER) (test code = 381) 131 meq/L 135-148 L GLUCOSE-STAT [id number] 15:39:00 Test Item Value Reference Range Interpretation Comments GLUCOSE RANDOM (BEAKER) (test code 186 mg/dL 70-110 H = 652) HGB/HCT (H&H) - STAT [id number] 15:39:00 Test Item Value Reference Range Interpretation Comments HEMOGLOBIN (BEAKER) (test code = 7.5 g/dL 12.0-15.0 L 410) HEMATOCRIT (BEAKER) (test code = 22.0 % 36.0-45.0 L 411) POTASSIUM-STAT [id number] 15:38:00 Test Item Value Reference Range Interpretation Comments POTASSIUM (BEAKER) (test code = 5.3 meq/L 3.6-5.5 379) BLOOD GAS, [id number] 15:24:00 Test Item Value Reference Range Interpretation [...] code = 1819) 70.0 % SODIUM NA-STAT [id number] 15:24:00 Test Item Value Reference Range Interpretation Comments SODIUM (BEAKER) (test code = 381) 130 meq/L 135-148 L GLUCOSE-STAT [id number] 15:24:00 Test Item Value Reference Range Interpretation Comments GLUCOSE RANDOM (BEAKER) (test code 189 mg/dL 70-110 H = 652) HGB/HCT (H&H) - STAT [id number] 15:24:00 Test Item Value Reference Range Interpretation Comments HEMOGLOBIN (BEAKER) (test code = 6.7 g/dL 12.0-15.0 L 410) HEMATOCRIT (BEAKER) (test code = 20.0 % 36.0-45.0 L 411) POTASSIUM-STAT [id number] 15:23:00 Test Item Value Reference Range Interpretation Comments POTASSIUM (BEAKER) (test code = 5.4 meq/L 3.6-5.5 379) BLOOD GAS, [id number] 15:07:00 Test Item Value Reference Range Interpretation [...] code = 1819) 70.0 % SODIUM NA-STAT [id number] 15:07:00 Test Item Value Reference Range Interpretation Comments SODIUM (BEAKER) (test code = 381) 129 meq/L 135-148 L GLUCOSE-STAT [id number] 15:07:00 Test Item Value Reference Range Interpretation Comments GLUCOSE RANDOM (BEAKER) (test code 172 mg/dL 70-110 H = 652) HGB/HCT (H&H) - STAT [id number] 15:07:00 Test Item Value Reference Range Interpretation Comments HEMOGLOBIN (BEAKER) (test code = 7.1 g/dL 12.0-15.0 L 410) HEMATOCRIT (BEAKER) (test code = 21.0 % 36.0-45.0 L 411) POTASSIUM-STAT [id number] 15:04:00 Test Item Value Reference Range Interpretation Comments POTASSIUM (BEAKER) (test code = 5.0 meq/L 3.6-5.5 379) BLOOD GAS, [id number] 14:21:00 Test Item Value Reference Range Interpretation [...] code = 1819) 70.0 % SODIUM NA-STAT [id number] 14:21:00 Test Item Value Reference Range Interpretation Comments SODIUM (BEAKER) (test code = 381) 133 meq/L 135-148 L GLUCOSE-STAT [id number] 14:21:00 Test Item Value Reference Range Interpretation Comments GLUCOSE RANDOM (BEAKER) (test code 160 mg/dL 70-110 H = 652) HGB/HCT (H&H) - STAT [id number] 14:21:00 Test Item Value Reference Range Interpretation Comments HEMOGLOBIN (BEAKER) (test code = 7.5 g/dL 12.0-15.0 L 410) HEMATOCRIT (BEAKER) (test code = 22.0 % 36.0-45.0 L 411) POTASSIUM-STAT [id number] 14:20:00 Test Item Value Reference Range Interpretation Comments POTASSIUM (BEAKER) (test code = 4.7 meq/L 3.6-5.5 379) BLOOD GAS, [id number] 13:58:00 Test Item Value Reference Range Interpretation [...] code = 1819) 80.0 % SODIUM NA-STAT [id number] 13:58:00 Test Item Value Reference Range Interpretation Comments SODIUM (BEAKER) (test code = 381) 132 meq/L 135-148 L GLUCOSE-STAT [id number] 13:58:00 Test Item Value Reference Range Interpretation Comments GLUCOSE RANDOM (BEAKER) (test code 166 mg/dL 70-110 H = 652) HGB/HCT (H&H) - STAT [id number] 13:58:00 Test Item Value Reference Range Interpretation Comments HEMOGLOBIN (BEAKER) (test code = 7.5 g/dL 12.0-15.0 L 410) HEMATOCRIT (BEAKER) (test code = 22.0 % 36.0-45.0 L 411) POTASSIUM-STAT [id number] 13:57:00 Test Item Value Reference Range Interpretation Comments POTASSIUM (BEAKER) (test code = 4.7 meq/L 3.6-5.5 379) BLOOD GAS, [id number] 13:35:00 Test Item Value Reference Range Interpretation [...] (test code = 1819) 80.0 % GLUCOSE-STAT [id number] 13:35:00 Test Item Value Reference Range Interpretation Comments GLUCOSE RANDOM (BEAKER) (test code 130 mg/dL 70-110 H = 652) HGB/HCT (H&H) - STAT [id number] 13:35:00 Test Item Value Reference Range Interpretation Comments HEMOGLOBIN (BEAKER) (test code = 6.7 g/dL 12.0-15.0 L 410) HEMATOCRIT (BEAKER) (test code = 20.0 % 36.0-45.0 L 411) SODIUM NA-STAT [id number] 13:35:00 Test Item Value Reference Range Interpretation Comments SODIUM (BEAKER) (test code = 381) 133 meq/L 135-148 L POTASSIUM-STAT [id number] 13:34:00 Test Item Value Reference Range Interpretation Comments POTASSIUM (BEAKER) (test code = 4.2 meq/L 3.6-5.5 379) BLOOD GAS, [id number] 13:16:00 Test Item Value Reference Range Interpretation [...] code = 1819) 80.0 % SODIUM NA-STAT [id number] 13:16:00 Test Item Value Reference Range Interpretation Comments SODIUM (BEAKER) (test code = 381) 133 meq/L 135-148 L HGB/HCT (H&H) - STAT [id number] 13:16:00 Test Item Value Reference Range Interpretation Comments HEMOGLOBIN (BEAKER) (test code = 6.3 g/dL 12.0-15.0 L 410) HEMATOCRIT (BEAKER) (test code = 19.0 % 36.0-45.0 L 411) CALCIUM, [id number] 13:15:00 Test Item Value Reference Range Interpretation Comments CALCIUM IONIZED (BEAKER) (test 0.98 mmol/L 1.12-1.27 L code = 698) PH, BLOOD (BEAKER) (test code = 7.34 1810) BLOOD GAS, [id number] 13:15:00 Test Item Value Reference Range Interpretation [...] (test code = 1819) 80.0 % GLUCOSE-STAT [id number] 13:14:00 Test Item Value Reference Range Interpretation Comments GLUCOSE RANDOM (BEAKER) (test code = 92 mg/dL 70-110 652) POTASSIUM-STAT [id number] 13:14:00 Test Item Value Reference Range Interpretation Comments POTASSIUM (BEAKER) (test code = 3.9 meq/L 3.6-5.5 379) BLOOD GAS, [id number] 10:54:00 Test Item Value Reference Range Interpretation [...] 1819) 100.0 % HGB/HCT (H&H) - STAT [id number] 10:54:00 Test Item Value Reference Range Interpretation Comments HEMOGLOBIN (BEAKER) (test code = 9.3 g/dL 12.0-15.0 L 410) HEMATOCRIT (BEAKER) (test code = 27.0 % 36.0-45.0 L 411) SODIUM NA-STAT [id number] 10:54:00 Test Item Value Reference Range Interpretation Comments SODIUM (BEAKER) (test code = 381) 132 meq/L 135-148 L GLUCOSE-STAT [id number] 10:52:00 Test Item Value Reference Range Interpretation Comments GLUCOSE RANDOM (BEAKER) (test code = 94 mg/dL 70-110 652) POTASSIUM-STAT [id number] 10:52:00 Test Item Value Reference Range Interpretation Comments POTASSIUM (BEAKER) (test code = 4.0 meq/L 3.6-5.5 379) HEMOGLOBIN [id number] 09:50:00 Test Item Value Reference Range Interpretation Comments HEMOGLOBIN A1C (BEAKER) (test code = 10.6 % 4.3-6.1 H 368) PLATELET AGGREGATION: FUNCTION [id number] 08:27:00 Test Item Value Reference Range Interpretation Comments WEAK ADP 63 % 60-91 RESULT(BEAKER) (test code = 2135) PLATELET FUNCTION 60-100% indicates SCREEN INTERP (BEAKER) normal platelet (test code = 2173) function [id number] Toshia Post MD (BEAKER) (test code = (electronic signature) 2932) PLATELET COUNT AGG 198 K/CU MM 150-450 (BEAKER) (test code = 2656) for patients on clopidogrel in past two weeksPOCT-GLUCOSE [id number] 08:11:00 Test Item Value Reference Range Interpretation Comments POC-GLUCOSE METER 116 mg/dL 70-110 H TESTED AT [facility] 6720 (BEAKER) (test code = [place] 1538) [address] [id number] 07:10:00 Test Item Value Reference Range Interpretation Comments PHOSPHORUS (BEAKER) (test code = 4.5 mg/dL 2.3-4.7 604) [id number] 07:10:00 Test Item Value Reference Range Interpretation Comments MAGNESIUM (BEAKER) (test code = 2.1 mg/dL 1.6-2.6 627) BASIC METABOLIC [id number] 07:10:00 Test Item Value Reference Range Interpretation [...] = 700) CBC W/PLT COUNT & AUTO [id number] 06:46:00 Test Item Value Reference Range Interpretation [...] PERCENT (BEAKER) (test code = 2801) CALCIUM, [id number] 06:40:00 Test Item Value Reference Range Interpretation Comments CALCIUM IONIZED (BEAKER) (test 1.06 mmol/L 1.12-1.27 L code = 698) PH, BLOOD (BEAKER) (test code = 7.39 1810) POCT-GLUCOSE [id number] 23:22:00 Test Item Value Reference Range Interpretation Comments POC-GLUCOSE METER 165 mg/dL 70-110 H TESTED AT [facility] 6720 (BEAKER) (test code = JULIANO Osborne [facility] 1538) [address] URINE PROTEIN ELECTROPHORESIS, [id number] 18:02:00 Test Item Value Reference Range Interpretation Comments PROTEIN, URINE 305 mg/dL 0-14 H (BEAKER) (test code = 1569) ALBUMIN URINE ELP 70.9 % (BEAKER) (test code = 1018) GAMMA GLOBULIN URINE 29.1 % (BEAKER) (test code = 1015) UPEP, ID-438 (BEAKER) No monoclonal bands (test code = 2604) detected. [id number] Rocio Galindo MD (BEAKER) (test code = (electronic signature) 0373) PROTEIN ELECTROPHORESIS, [id number] 17:57:00 Test Item Value Reference Range Interpretation [...] all globulin fractions. No monoclonal bands detected. [id number] Rocio Galindo MD (BEAKER) (test code = (electronic signature) 9149) PROTEIN TOTAL SERUM, 5.5 gm/dL 6.0-8.3 L SPEP (BEAKER) (test code = 6096) POCT-GLUCOSE [id number] 17:15:00 Test Item Value Reference Range Interpretation Comments POC-GLUCOSE METER 209 mg/dL 70-110 H TESTED AT [facility] 6720 (BEAKER) (test code = [place] 1538) [address] BLOOD GAS, [id number] 15:54:00 Test Item Value Reference Range Interpretation [...] 36.0 % RAD, CHEST, 1 VIEW, NON [id number] 14:07:00Reason for exam:->SOB, hypoxemiaShould this be performed [...] Regan Cespedes Verified Date/Time: 05/19/2017 14:07:07 Reading Location:[facility] C013W Consult Reading Room POCT-GLUCOSE [id number] 11:26:00 Test Item Value Reference Range Interpretation Comments POC-GLUCOSE METER 262 mg/dL 70-110 H TESTED AT [place] [address] (BEAKER) [facility] 1538[facility] [address] POCT-GLUCOSE [id number] 07:37:00 Test Item Value Reference Range Interpretation Comments POC-GLUCOSE METER 170 mg/dL 70-110 H TESTED AT [place] [address] (BEAKER) (test code = [facility] 1538) [address] CALCIUM, [id number] 06:06:00 Test Item Value Reference Range Interpretation Comments CALCIUM IONIZED (BEAKER) (test 1.05 mmol/L 1.12-1.27 L code = 698) PH, BLOOD (BEAKER) (test code = 7.41 1810) [id number] 05:38:00 Test Item Value Reference Range Interpretation Comments PHOSPHORUS (BEAKER) (test code = 3.9 mg/dL 2.3-4.7 604) [id number] 05:38:00 Test Item Value Reference Range Interpretation Comments MAGNESIUM (BEAKER) (test code = 2.2 mg/dL 1.6-2.6 627) BASIC METABOLIC [id number] 05:38:00 Test Item Value Reference Range Interpretation [...] PATIEN TS. CBC W/PLT COUNT & AUTO [id number] 05:09:00 Test Item Value Reference Range Interpretation [...] PERCENT (BEAKER) (test code = 2801) POCT-GLUCOSE [id number] 22:08:00 Test Item Value Reference Range Interpretation Comments POC-GLUCOSE METER 263 mg/dL 70-110 H TESTED AT [place] [address] [facility] (test code = [facility] 1538) [address] POCT-GLUCOSE [id number] 17:20:00 Test Item Value Reference Range Interpretation Comments POC-GLUCOSE METER 233 mg/dL 70-110 H TESTED AT [place] [address] [facility] (test code = [facility] 1538) [address] POCT-GLUCOSE [id number] 08:28:00 Test Item Value Reference Range Interpretation Comments POC-GLUCOSE METER 154 mg/dL 70-110 H TESTED AT [place] [address] [facility] (test code = [facility] 1538) [address] BASIC METABOLIC [id number] 06:41:00 Test Item Value Reference Range Interpretation [...] S NOT APPLICABLE FOR DIALYSIS PATIEN TS. [id number] 06:35:00 Test Item Value Reference Range Interpretation Comments PHOSPHORUS (BEAKER) (test code = 4.1 mg/dL 2.3-4.7 604) [id number] 06:35:00 Test Item Value Reference Range Interpretation Comments MAGNESIUM (BEAKER) (test code = 2.1 mg/dL 1.6-2.6 627) CALCIUM, [id number] 06:22:00 Test Item Value Reference Range Interpretation Comments CALCIUM IONIZED (BEAKER) (test 1.10 mmol/L 1.12-1.27 L code = 698) PH, BLOOD (BEAKER) (test code = 7.38 1810) CBC W/PLT COUNT & AUTO [id number] 06:04:00 Test Item Value Reference Range Interpretation [...] PERCENT (BEAKER) (test code = 2801) POCT-GLUCOSE [id number] 03:44:00 Test Item Value Reference Range Interpretation Comments POC-GLUCOSE METER 220 mg/dL 70-110 H TESTED AT [place] [address] [facility] 1538) [address] POCT-GLUCOSE [id number] 18:27:00 Test Item Value Reference Range Interpretation Comments POC-GLUCOSE METER 256 mg/dL 70-110 H TESTED AT [place] [address] ([facility]) (test code = JULIANO Osborne [facility] 1538) [address] POCT-GLUCOSE [id number] 15:45:00 Test Item Value Reference Range Interpretation Comments POC-GLUCOSE METER 278 mg/dL 70-110 H TESTED AT [place] [address] ([facility]) (test [facility] = [facility] [address] POCT-GLUCOSE [id number] 13:22:00 Test Item Value Reference Range Interpretation Comments POC-GLUCOSE METER 278 mg/dL 70-110 H TESTED AT [facility] 6720 ([facility]) (test code = [facility] Dylon [facility] 1538) [address] PLATELET AGGREGATION: FUNCTION [id number] 13:18:00 Test Item Value Reference Range Interpretation Comments WEAK ADP 66 % 60-91 RESULT(BEAKER) (test code = 2135) PLATELET FUNCTION 60-100% indicates SCREEN INTERP (BEAKER) normal platelet (test code = 2173) function [id number] Rigoberto Duenas MD ([facility]) (test code = (electronic signature) 3443) PLATELET COUNT AGG 204 K/CU MM 150-450 (BEAKER) (test code = 2656) POCT-GLUCOSE [id number] 08:27:00 Test Item Value Reference Range Interpretation Comments POC-GLUCOSE METER 189 mg/dL 70-110 H TESTED AT [facility] 6720 ([facility]) (test code = [facility] 1538) [address] CALCIUM, [id number] 06:12:00 Test Item Value Reference Range Interpretation Comments CALCIUM IONIZED (BEAKER) (test 1.07 mmol/L 1.12-1.27 L code = 698) PH, BLOOD (BEAKER) (test code = 7.36 1810) [id number] 05:43:00 Test Item Value Reference Range Interpretation Comments PHOSPHORUS (BEAKER) (test code = 3.6 mg/dL 2.3-4.7 604) [id number] 05:43:00 Test Item Value Reference Range Interpretation Comments MAGNESIUM (BEAKER) (test code = 2.1 mg/dL 1.6-2.6 627) BASIC METABOLIC [id number] 05:43:00 Test Item Value Reference Range Interpretation [...] PATIEN TS. CBC W/PLT COUNT & AUTO [id number] 05:05:00 Test Item Value Reference Range Interpretation [...] PERCENT (BEAKER) (test code = 2801) POCT-GLUCOSE [id number] 21:32:00 Test Item Value Reference Range Interpretation Comments POC-GLUCOSE METER 176 mg/dL 70-110 H TESTED AT [place] [address] ([facility]) (test code = JULIANO Osborne [facility] 1538) [address] POCT-GLUCOSE [id number] 20:27:00 Test Item Value Reference Range Interpretation Comments POC-GLUCOSE METER 161 mg/dL 70-110 H TESTED AT [place] [address] ([facility]) ([facility] 1538) [address] POCT-GLUCOSE [id number] 18:23:00 Test Item Value Reference Range Interpretation Comments POC-GLUCOSE METER 185 mg/dL 70-110 H TESTED AT [place] [address] ([facility]) (test code = [facility] Dylon [facility] 1538) [address] POCT-GLUCOSE [id number] 13:26:00 Test Item Value Reference Range Interpretation Comments POC-GLUCOSE METER 282 mg/dL 70-110 H TESTED AT [place] [address] ([facility]) (test code = [facility] Dylon [facility] 1538) [address] URINE [id number] 10:12:00 Test Item Value Reference Range Interpretation Comments CULTURE ([facility]) (test >100,000 col/mL skin code = 1095) todd POCT-GLUCOSE [id number] 09:01:00 Test Item Value Reference Range Interpretation Comments POC-GLUCOSE METER 268 mg/dL 70-110 H TESTED AT [place] [address] (BEAKER) (test code = [place] 1538) [address] CALCIUM, [id number] 05:39:00 Test Item Value Reference Range Interpretation Comments CALCIUM IONIZED (BEAKER) (test 0.84 mmol/L 1.12-1.27 L code = 698) PH, BLOOD (BEAKER) (test code = 7.35 1810) BASIC METABOLIC [id number] 05:07:00 Test Item Value Reference Range Interpretation [...] S NOT APPLICABLE FOR DIALYSIS PATIEN TS. [id number] 05:06:00 Test Item Value Reference Range Interpretation Comments PHOSPHORUS (BEAKER) (test code = 3.2 mg/dL 2.3-4.7 604) [id number] 05:06:00 Test Item Value Reference Range Interpretation Comments MAGNESIUM (BEAKER) (test code = 2.3 mg/dL 1.6-2.6 627) CBC W/PLT COUNT & AUTO [id number] 04:42:00 Test Item Value Reference Range Interpretation [...] = 2801) RHEUMATOID FACTOR AB, REFLEX TO [id number] 01:52:00 Test Item Value Reference Range Interpretation Comments RHEUMATOID FACTOR (BEAKER) (test Negative code = 573) POCT-GLUCOSE [id number] 21:57:00 Test Item Value Reference Range Interpretation Comments POC-GLUCOSE METER 105 mg/dL 70-110 TESTED AT [facility] 6720 (ROBERT) (test code = JULIANO Osborne [facility] 1538) [address] POCT-GLUCOSE [id number] 18:11:00 Test Item Value Reference Range Interpretation Comments POC-GLUCOSE METER 312 mg/dL 70-110 H Notified R Sonya PIERRE/TESTED (ROBERT) (test code = AT [facility] 6720 [facility] 1538) [facility] 7[address] PET, CARDIAC PERFUSION MULTIPLE STUDIES, REST AND [id number] 16:28:00 Reason for exam:->pvcs, known cadFINAL REPORT PROCEDURE: Rest/Stress MYOCARDIAL PERFUSION PET with regadenoson\\XA9\\ CPT CODE: 45699 INDICATION: Defined extent and severity of known [...] is 23%. LVEF at stress is 36%. [employer] Automatic CT images revealed a right pleural effusion [...] defect (particularly if anterior)(JACC. 2012;59(9):857-81.) Signed: Natan Whaley Verified Date/Time: 05/15/2017 16:28:12 Reading Location: [address] ReadingRoom RAD, CHEST, 1 VIEW, NON [id number] 15:56:00Reason for exam:->SOBShould this be performed at the bedside?->YesFINAL REPORT Comparison: 05/14/2017 TECHNIQUE: Single view of the chest FINDINGS: There is a small right pleural effusion with nonspecific airspace disease. This is unchanged. Left lung is grossly clear. Cardiac silhouette is enlarged. IMPRESSION: 1. No acute cardiopulmonary disease. Signed: Sixto Monk MDReport Verified Date/Time: 05/15/2017 15:56:39 [facility] POCT-GLUCOSE [id number] 12:54:00 Test Item Value Reference Range Interpretation Comments POC-GLUCOSE METER 308 mg/dL 70-110 H Notified Dylon Hassan MD/TESTED (ROBERT) (test code = AT [facility] 6720 [place]DIS 0558) [facility] 7[address] 0 U/S, RENAL WITH [id number] 11:04:00Reason for exam:->tracy, htnShould this be performed [...] MDReport Verified Date/Time: 05/15/2017 11:04:01 Reading Location: [facility] B1 P006J Ultrasound Reading Room ANA TITER AND [id number] 10:57:00 Test Item Value Reference Range Interpretation Comments ROGER TITER (BEAKER) (test code = :160 1541) ROGER PATTERN (BEAKER) (test code = Speckled 1781) ANTI-NUCLEAR ANTIBODY (ROGER)2017-05-15 10:56:00 Test Item Value Reference Range Interpretation Comments ANTI-NUCLEAR ANTIBODY (ROGER) (BEAKER) Positive Negative A (test code = 418) CALCIUM, [id number] 06:00:00 Test Item Value Reference Range Interpretation Comments CALCIUM IONIZED (BEAKER) (test 1.07 mmol/L 1.12-1.27 L code = 698) PH, BLOOD (BEAKER) (test code = 7.28 1810) HEPATITIS PANEL, [id number] 05:01:00 Test Item Value Reference Range Interpretation Comments HEPATITIS A IGM ANTIBODY (BEAKER) Nonreactive Nonreactive (test code = 498) HEPATITIS B CORE IGM ANTIBODY Nonreactive Nonreactive (BEAKER) (test code = 645) HEPATITIS C ANTIBODY (BEAKER) Nonreactive Nonreactive (test code = 367) HEPATITIS B SURFACE ANTIGEN (2) Nonreactive Nonreactive (BEAKER) (test code = 2585) BASIC METABOLIC [id number] 04:48:00 Test Item Value Reference Range Interpretation [...] NOT APPLICABLE FOR DIALYSIS PATIEN TS. URIC [id number] 04:41:00 Test Item Value Reference Range Interpretation Comments URIC ACID (BEAKER) (test code = 10.3 mg/dL 2.6-7.2 H 773) [id number] 04:41:00 Test Item Value Reference Range Interpretation Comments MAGNESIUM (BEAKER) (test code = 2.0 mg/dL 1.6-2.6 627) [id number] 04:41:00 Test Item Value Reference Range Interpretation Comments PHOSPHORUS (BEAKER) (test code = 4.2 mg/dL 2.3-4.7 604) COMPLEMENT COMPONENT [id number] 04:38:00 Test Item Value Reference Range Interpretation Comments C4 COMPLEMENT (BEAKER) (test code = 28 mg/dL 15-57 394) COMPLEMENT COMPONENT [id number] 04:38:00 Test Item Value Reference Range Interpretation Comments C3 COMPLEMENT (BEAKER) (test code = 103 mg/dL 82-193 393) CBC W/PLT COUNT & AUTO [id number] 04:22:00 Test Item Value Reference Range Interpretation [...] PERCENT (BEAKER) (test code = 2801) POCT-GLUCOSE [id number] 21:46:00 Test Item Value Reference Range Interpretation Comments POC-GLUCOSE METER 173 mg/dL 70-110 H TESTED AT [place] [address] [facility] (test code = JULIANO RUTH [place] 1538) [address] POCT-GLUCOSE [id number] 21:46:00 Test Item Value Reference Range Interpretation Comments POC-GLUCOSE METER 154 mg/dL 70-110 H TESTED AT [place] [address] (BEAKER) (test code = JULIANO RUTH [place] 1538) [address] POCT-GLUCOSE [id number] 18:17:00 Test Item Value Reference Range Interpretation Comments POC-GLUCOSE METER 175 mg/dL 70-110 H TEST[facility] AT [place] [address] [facility] (test code = JULIANO RUTH [place] 1538) [address] RAD, CHEST, 1 VIEW, NON [id number] 14:56:00Reason for exam:->SOBShould this be performed at the bedside?->YesFINAL REPORT INDICATION: SOB COMPARISON: May 13, 2017 TECHNIQUE: Chest radiograph, single view, portable technique. FINDINGS / IMPRESSION: Enlarged heart shadow, small rightpleural effusion, and pulmonary venous congestion, again demonstrated. No pneumothorax or consolidation. Osseous structures unremarkable. Signed: Thania Dwyer MDReport Verified Date/Time: 05/14/2017 14:56:58 Reading Location: [facility] Mammo Reading Room POCT-GLUCOSE [id number] 12:18:00 Test Item Value Reference Range Interpretation Comments POC-GLUCOSE METER 313 mg/dL 70-110 H TESTED AT [facility] 6720 (BEAKER) (test code = JULIANO RUTH [place] 1538) [address] HIV-1 ANTIGEN WITH HIV-1/2 [id number] 12:07:00 Test Item Value Reference Range Interpretation Comments HIV-1 ANTIGEN WITH HIV 1\\T\\2 Nonreactive Nonreactive ANTIBODY (2) (BEAKER) (test code = 2586) CALCIUM, [id number] 06:37:00 Test Item Value Reference Range Interpretation Comments CALCIUM IONIZED (BEAKER) (test 1.08 mmol/L 1.12-1.27 L code = 698) PH, BLOOD (BEAKER) (test code = 7.25 1810) BASIC METABOLIC [id number] 06:26:00 Test Item Value Reference Range Interpretation [...] pg/mL 0-100 H (test code = 700) [id number] 06:25:00 Test Item Value Reference Range Interpretation Comments PHOSPHORUS (BEAKER) (test code = 5.7 mg/dL 2.3-4.7 H 604) [id number] 06:25:00 Test Item Value Reference Range Interpretation Comments MAGNESIUM (BEAKER) (test code = 1.5 mg/dL 1.6-2.6 L 627) CBC W/PLT COUNT & AUTO [id number] 06:07:00 Test Item Value Reference Range Interpretation [...] PERCENT (BEAKER) (test code = 2801) POCT-GLUCOSE [id number] 22:38:00 Test Item Value Reference Range Interpretation Comments POC-GLUCOSE METER 262 mg/dL 70-110 H TESTED AT [facility] 6720 (BEAKER) (test code = JULIANO RUTH [place] 1538) [address] PROTEIN, RANDOM [id number] 22:18:00 Test Item Value Reference Range Interpretation Comments PROTEIN, URINE (BEAKER) (test code 641 mg/dL 0-14 H = 1569) CREATININE, RANDOM [id number] 22:07:00 Test Item Value Reference Range Interpretation Comments CREATININE URINE (BEAKER) (test 124.9 mg/dL code = 375) Reference Range: No NormalsURINALYSIS W/ [id number] 22:03:00 Test Item Value Reference Range Interpretation [...] 1585) SOURCE(BEAKER) (test code = Urine, Voided 7775) [id number] 19:49:00 Test Item Value Reference Range Interpretation Comments SODIUM (BEAKER) (test 136 meq/L 136-145 code = 381) POTASSIUM (BEAKER) 5.1 meq/L 3.5-5.1 Specimen slightly (test code = 379) hemolyzed CHLORIDE (BEAKER) 104 meq/L 98-107 (test code = 382) CO2 (BEAKER) (test 25 meq/L 22-29 code = 355) Call if K > 5POCT-GLUCOSE [id number] 11:37:00 Test Item Value Reference Range Interpretation Comments POC-GLUCOSE METER 293 mg/dL 70-110 H TESTED AT [facility] 6720 (BEAKER) (test code = JULIANO RUTH [place] 1538) [address] RAD, CHEST, 1 VIEW, NON [id number] 10:22:00Reason for exam:->SOBShould this be performed at the bedside?->YesFINAL REPORT Chest one view Discussion: There is cardiomegaly and interstitial congestion. A small right-sided effusion is noted. No pneumothorax. IMPRESSIONS: Suspected CHF. Signed: Jeannette Navaeport Verified Date/Time: 05/13/2017 10:22:34 Reading Location: [facility] POCT-GLUCOSE METER 2017-05-13 08:34:00 Test Item Value Reference Range Interpretation Comments POC-GLUCOSE METER 178 mg/dL 70-110 H TESTED AT [facility] 67 (BEAKER) (test code = [facility] 1538) [address] POCT-GLUCOSE [id number] 06:53:00 Test Item Value Reference Range Interpretation Comments POC-GLUCOSE METER 167 mg/dL 70-110 H TESTED AT [place] [address] [facility] (test code = [facility] 1538) [address] [id number] 04:48:00 Test Item Value Reference Range Interpretation Comments BLOOD UREA NITROGEN (BEAKER) (test 36 mg/dL 7-21 H code = 354) [id number] 04:48:00 Test Item Value Reference Range Interpretation Comments SODIUM (BEAKER) (test code = 381) 139 meq/L 136-145 POTASSIUM (BEAKER) (test code = 5.2 meq/L 3.5-5.1 H 379) CHLORIDE (BEAKER) (test code = 382) 109 meq/L 98-107 H CO2 (BEAKER) (test code = 355) 23 meq/L 22-29 [id number] 04:48:00 Test Item Value Reference Range Interpretation [...] WBC 0-0 (BEAKER) (test code = 413) [id number] 23:29:00 Test Item Value Reference Range Interpretation Comments ACTIVATED CLOTTING TIME 136 sec TEST ED AT [place] [address] ([facility]) (test code = JULIANO RUTH [facility]) [address] [id number] 20:13:00 Test Item Value Reference Range Interpretation Comments ACTIVATED CLOTTING TIME 175 sec TEST ED AT [place] [address] ([facility]) (test code = JULIANO Osborne [place] [address]) [address] [id number] 18:36:00 Test Item Value Reference Range Interpretation Comments ACTIVATED CLOTTING TIME 202 sec TEST ED AT [place] [address] ([facility]) (test code = JULIANO RUTH [facility]) [address] [id number] 18:03:00 Test Item Value Reference Range Interpretation Comments ACTIVATED CLOTTING TIME 208 sec TEST ED AT [place] [address] ([facility]) (test code = JULIANO Osborne [place] [address]) [address] BASIC METABOLIC [id number] 11:57:00 Test Item Value Reference Range Interpretation [...] NOT APPLICABLE FOR DIALYSIS PATIEN TS. PROTHROMBIN [id number] 11:15:00 Test Item Value Reference Range Interpretation [...] if on CoumadinCBC W/PLT COUNT & AUTO [id number] 11:01:00 Test Item Value Reference Range Interpretation [...] PERCENT (BEAKER) (test code = 2801) POCT-GLUCOSE [id number] 12:35:00 Test Item Value Reference Range Interpretation Comments POC-GLUCOSE METER 249 mg/dL 70-110 H TESTED AT [facility] 67[address] [facility] (test code = JULIANO RUTH [place] 1538) [address] POCT-GLUCOSE [id number] 09:10:00 Test Item Value Reference Range Interpretation Comments POC-GLUCOSE METER 155 mg/dL 70-110 H TESTED AT [facility] 6720 (BEAKER) (test code = JULIANO RUTH [place] 1538) [address] BASIC METABOLIC [id number] 05:39:00 Test Item Value Reference Range Interpretation [...] GFR I S NOT APPLICABLE FOR DIALYSIS SANDRA TS. [id number] 05:27:00 Test Item Value Reference Range Interpretation Comments PHOSPHORUS (BEAKER) (test code = 5.0 mg/dL 2.3-4.7 H 604) [id number] 05:27:00 Test Item Value Reference Range Interpretation Comments MAGNESIUM (BEAKER) (test code = 1.6 mg/dL 1.6-2.6 627) POCT-GLUCOSE [id number] 05:25:00 Test Item Value Reference Range Interpretation Comments POC-GLUCOSE METER 144 mg/dL 70-110 H TESTED AT [facility] 6720 (BEAKER) (test code = MATTHIASAMANDA RUTH [place] 1538) [address] PROTHROMBIN [id number] 04:58:00 Test Item Value Reference Range Interpretation Comments PROTIME (BEAKER) (test code = 14.2 seconds 11.7-14.7 759) INR (BEAKER) (test code = 370) 1.1 <=5.9 RECOMMENDED COUMADIN/WARFARIN INR THERAPY RANGESSTANDARD DOSE: 2.0 - 3.0 Includes: PROPHYLAXIS forvenous thrombosis, systemic embolization; TREATMENT for venous thrombosis and/or pulmonary embolus.HIGH RISK: Target INR is 2.5-3.5 for patients with mechanical heart valves.POCT-GLUCOSE [id number] 23:55:00 Test Item Value Reference Range Interpretation Comments POC-GLUCOSE METER 86 mg/dL 70-110 TESTED AT [place] [address] ([facility]) (test code = JULIANO Osborne [facility] [address] 1538) B-TYPE NATRIURETIC FACTOR (BNP)2017-04-22 18:13:00 Test Item Value Reference Range Interpretation Comments B-TYPE NATRIURETIC PEPTIDE 1203 pg/mL 0-100 H ([facility]) (test code = 700) POCT-GLUCOSE [id number] 17:36:00 Test Item Value Reference Range Interpretation Comments POC-GLUCOSE METER 259 mg/dL 70-110 H TESTED AT [place] [address] ([facility]) (test code = [facility] 1538) [address] HEMOGLOBIN [id number] 14:24:00 Test Item Value Reference Range Interpretation Comments HEMOGLOBIN A1C (AKER) (test code = 10.5 % 4.3-6.1 H 368) POCT-GLUCOSE [id number] 12:34:00 Test Item Value Reference Range Interpretation Comments POC-GLUCOSE METER 207 mg/dL 70-110 H TESTED AT [place] [address] ([facility]) (test code = [facility] 1538) [address] [id number] 07:53:00 Test Item Value Reference Range Interpretation Comments PHOSPHORUS (BEAKER) (test code = 3.9 mg/dL 2.3-4.7 604) [id number] 07:53:00 Test Item Value Reference Range Interpretation Comments MAGNESIUM (BEAKER) (test code = 1.6 mg/dL 1.6-2.6 627) BASIC METABOLIC [id number] 07:53:00 Test Item Value Reference Range Interpretation [...] 358) GLUCOSE RANDOM 211 mg/dL 70-105 H (ROBERT) (test code = 652) CALCIUM (BEAKER) 8.5 mg/dL 8.4-10.2 (test code = 697) EGFR (BEAKER) (test 34 mL/min/1.73 ESTIMA HINA GFR IS code = 1092) sq m NOT ACCURATE CREATININE CLEARANCE IN PREDICTING GLOMERULAR FILTRATION RATE . ESTIMATED GFR I S NOT APPLICABLE FOR DIALYSIS PATIEN TS. TROPONIN [id number] 07:29:00 Test Item Value Reference Range Interpretation [...] acidosis, acute neurological disease, and persistent tachyarrhythmia.PROTHROMBIN [id number] 07:01:00 Test Item Value Reference Range Interpretation Comments PROTIME (ROBERT) (test code = 13.8 seconds 11.7-14.7 759) INR (ROBERT) (test code = 370) 1.1 <=5.9 RECOMMENDED COUMADIN/WARFARIN INR THERAPY RANGESSTANDARD DOSE: 2.0 - 3.0 Includes: PROPHYLAXIS forvenous thrombosis, systemic embolization; TREATMENT for venous thrombosis and/or pulmonary embolus.HIGH RISK: Target INR is 2.5-3.5 for patients with mechanical heart valves.POCT-GLUCOSE [id number] 06:28:00 Test Item Value Reference Range Interpretation Comments POC-GLUCOSE METER 198 mg/dL 70-110 H TESTED AT [facility] 6720 ([facility]) (test code = JULIANO REYEZ 1538) [address] CREATINE KINASE (CK), TOTAL AND [id number] 00:49:00 Test Item Value Reference Range Interpretation Comments CREATINE KINASE TOTAL (ROBERT) 69 U/L 29-200 (test code = 380) CREATINE KINASE-MB (ROBERT) (test 4.3 ng/mL 0.0-6.6 code = 750) CREATINE KINASE-MB INDEX ([facility]) 6.2 % (test code = 395) CK-MB Reference Range:<6.7 Normal6.7-10.0 Borderline>10.0 AbnormalTROPONIN [id number] 00:49:00 Test Item Value Reference Range Interpretation Comments TROPONIN I ([facility]) (test code = 0.05 ng/mL 0.00-0.03 H [...] acidosis, acute neurological disease, and persistent tachyarrhythmia.POCT-GLUCOSE [id number] 20:44:00 Test Item Value Reference Range Interpretation Comments POC-GLUCOSE METER 269 mg/dL 70-110 H TESTED AT [facility] 6720 ([facility]) (test code = JULIANO REYEZ 1538) [address]
== END 2020-01-04 17:34 | disposition left against medical advice (07) ==
LOC: ER 05:05 → ERHOLD 10:01
PROVIDERS: ADMIT Internal Medicine; ATTEND Internal Medicine
DX: D62 Acute posthemorrhagic anemia (principal); I87.313 Chronic venous hypertension (idiopathic) with ulcer of bilateral lower extremity; I13.0 Hypertensive heart and chronic kidney disease with heart failure and stage 1 through stage 4 chronic kidney disease, or unspecified chronic kidney disease; I50.32 Chronic diastolic (congestive) heart failure; E11.22 Type 2 diabetes mellitus with diabetic chronic kidney disease; N18.4 Chronic kidney disease, stage 4 (severe); Z99.2 Dependence on renal dialysis; R53.81 Other malaise; Z20.828 Contact with and (suspected) exposure to other viral communicable diseases; Z79.4 Long term (current) use of insulin; Z79.02 Long term (current) use of antithrombotics/antiplatelets; J44.9 Chronic obstructive pulmonary disease, unspecified; I25.10 Atherosclerotic heart disease of native coronary artery without angina pectoris; Z95.1 Presence of aortocoronary bypass graft; Z85.42 Personal history of malignant neoplasm of other parts of uterus; E78.5 Hyperlipidemia, unspecified; Z89.412 Acquired absence of left great toe; Z95.5 Presence of coronary angioplasty implant and graft; R00.1 Bradycardia, unspecified; R94.31 Abnormal electrocardiogram [ECG] [EKG]
CPT/HCPCS: 36415; 71045; 80048; 80076; 82550; 83880; 84484; 85025; 85610; 85730; 86850; 86870; 86880; 86900; 86901; 86902; 86922; 93005; 99284; G0378; J7040; P9016; U0003

== ENCOUNTER 2020-01-10 16:34 | Observation (INO) | payer MEDICAID ==
--- OUTSIDE RECORDS SUMMARY | 2020-01-10 16:39 | XMS REPORT | Clinical Summary ---
:1955 Author Organization [facility] Address [address] [place] [address] Care Team Providers Name Role Phone Landy Rendon Primary Care Provider Chris Mitchell Unavailable Allergies Active Allergy Reactions Severity Noted Date Comments Amoxicillin-Pot Clavulanate Diarrhea High 04/21/2017 Basil Nausea Only High 04/21/2017 Morphine Anaphylaxis High 04/21/2017 Nitroglycerin Nausea And Vomiting High 04/21/2017 IV NITR O ONLY Trazodone Nausea And Vomiting High 05/12/2017 Vancomycin Analogues Nausea And Vomiting High 04/21/2017 Medications Medication Sig Dispensed Refills Start Date End Date Status fluticasone (FLOVENT Inhale 1 puff by 1 Inhaler 0 06/01/2017 Active HFA) 110 mcg/actuation mouth via inhaler inhaler 2 (two) times daily. carvedilol (COREG) Take 1 tablet 60 tablet 0 07/07/2017 Active 12.5 MG tablet (12.5 mg total) by mouth 2 (two) times daily. Additional Information Patient taking differently: 3.125 mg Oral Daily, Reported on 12/16/2019 10:59 AM atorvastatin (LIPITOR) 40 Take 1 tablet (40 mg 30 tablet 0 11/2017 Active MG tablet total) by mouth daily. gabapentin (NEURONTIN) 100 Take 100 mg in AM and 100 capsule 0 09/02/2017 Active MG capsule afternoon and 300 mg at night. Additional Information Patient taking differently: 200 mg 3 times daily, Take 100 mg in AM and afternoon and 300 mg at night, Reported on 12/16/2019 10:56 AM acetaminophen-codeine Take 1 tablet by 20 tablet 0 09/05/2017 Active (TYLENOL #3) 300-30 mg per mouth every 6 (six) tablet hours as needed. Max Daily Amount: 4 tablets mupirocin (BACTROBAN) 2 % Apply topically 0 Active ointment daily. collagenase (SANTYL) 250 Apply topically 0 Active units/g ointment daily. fentaNYL (DURAGESIC) 50 Place 1 patch onto 0 020 Active mcg/hr patch the skin every third day. bumetanide (BUMEX) 2 MG Take 2 mg by mouth 0 Active tablet 3 (three) times daily. insulin regular (HUMULIN Inject 0 Active R,NOVOLIN R) 100 unit/mL subcutaneously 4 injection (four) times daily before meals and nightly Use as directed . metOLazone (ZAROXOLYN) 5 Take 5 mg by mouth 0 Active MG tablet 2 (two) times daily. allopurinoL (ZYLOPRIM) 100 Take 100 mg by 0 Active MG tablet mouth 2 (two) times daily. levothyroxine (SYNTHROID, Take 112 mcg by 0 Active LEVOTHROID) 112 MCG tablet mouth Every morning on an empty stomach. folic acid (FOLVITE) 1 MG Take 1 mg by mouth 0 Active tablet daily. isosorbide mononitrate Take 60 mg by mouth 0 Active (IMDUR) 60 MG 24 hr tablet daily. buPROPion (WELLBUTRIN SR) Take 150 mg by 0 Active 150 MG 12 hr tablet mouth daily. sertraline (ZOLOFT) 25 MG Take 25 mg by mouth 0 Active tablet daily. ferrous sulfate 325 (65 Take 325 mg by 0 Active FE) MG tablet mouth daily with breakfast. levoFLOXacin (LEVAQUIN) Take 1 tablet (250 10 tablet 0 020 12/29 Active 250 MG tablet mg total) by mouth 05/20 daily for 10 days. 20 aspirin 81 MG EC tablet Take 81 mg by mouth 0 11/29 Discontinued daily. 10/17 20 albuterol-ipratropium Inhale 2 puffs by 4 g 0 06/01/201711/29 Discontinued (COMBIVENT RESPIMAT) mouth via inhaler 20-100 mcg/actuation Mist every 6 (six) 20 inhaler hours. insulin detemir (LEVEMIR Inject 0.05 mLs (5 1 packet 0 11/29 Discontinued FLEXPEN) 100 unit/mL (3 Units total) 09/29 0 mL) InPn injection subcutaneously 20 every morning. pen needle, diabetic 29 Use as directed to 100 each 0 018 11/29 Discontinued gauge Ndle inject long and 10/17 short acting 20 insulin.. NIFEdipine (ADALAT CC) 60 Take 1 tablet (60 30 tablet 0 11/29 Discontinued MG 24 hr tablet mg total) by mouth 20 daily Blood 20 pressure. hydrALAZINE (APRESOLINE) Take 1 tablet (50 120 tablet 0 11/29 Discontinued 50 MG tablet mg total) by mouth 10/17 every 8 (eight) 20 hours Blood pressure. clopidogrel (PLAVIX) 75 mg Take 1 tablet (75 30 tablet 0 07/07 Discontinued tablet mg total) by mouth 10/17 daily. 20 NICOTINE (NICODERM CQ TD) Place onto the 0 11/29 Discontinued skin. 10/17 20 ferrous sulfate 325 (65 Take 1 tablet (325 60 tablet 0 018 11/29 Discontinued FE) MG tablet mg total) by mouth 10/17 2 (two) times 20 daily. melatonin 10 mg Tab Take 10 mg by mouth 0 11/29 Discontinued every night as 10/17 needed. 20 isosorbide mononitrate Take 30 mg by mouth 0 11/29 Discontinued (IMDUR) 30 MG 24 hr tablet daily. 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) (Primary Dx) 12/16/2019 Orders Only Shiva Anderson, RN after 01/09/2019 Family History Medical History Relation Name Comments [...] Assigned at Date Recorded Not on file COVID-19 Exposure Response Date Recorded In the last month, have you been in contact with No / Unsure 12/17/2019 2:26 AM CDT someone who was confirmed or suspected to have Coronavirus / COVID-19? Last Filed Vital Signs Vital Sign Reading Time Taken Comments Blood Pressure 162/73 01/01/2020 8:32 AM CDT [...] 9:05 PM CDT Body Mass Index 27 12/25/2019 9:05 PM CDT Plan of Treatment Health Maintenance Due Date Last Done Comments BREAST CANCER SCREENING 1955 DIABETIC EYE EXAM 1965 URINE MICROALBUMIN 1965 CERVICAL CANCER SCREENING PAP ONLY 1976 (Age 21-65) LIPID PANEL 2000 HEMOGLOBIN A1C 08/16/2017 05/19/2017, 04/22/2017 INFLUENZA VACCINE (#1) 2019 05/26/2018, 02/04/2017, 01/11/2014, Additional history exists COLON CANCER SCREENING ANNUAL FOBT 12/19/2020 12/20/2019 DIABETIC FOOT EXAM 12/21/2020 12/22/2019 PNEUMOCOCCAL VACCINE 0-64 YRS Completed 01/11/2014 Implants Implanted Type Area [employer] Sales Consultant Device Shelf Model / Identifier Expiration Serial / Date Lot Device Clsr Angio-Seal Vip 8fr [id number] - [id number] Cardiovascular N/A: [facility] EVELYN 01/28/2018 [id number] / Implanted: Qty: 1 on 05/12/2017 by Sandra Beard MD at [facility] Groin MED:CARDIAC / SURG [id number] Grft Eptfe-Heparin Rng [id number] - [id number] Graft/P atch Right: SUHAS MATHEW & 04/09/2021 [id number] / Implanted: Qty: 1 on 08/05/2017 by Mariela Santamaria MD at [facility] Leg ASSC:MED PRDT [id number] / N/A Description:GORE PROPATEN VASCULAR GRAFT REMOVABLE RING Procedures Procedure Name Priority Date/Time Associated Comments [...] n the results section. I&D,BONE FOOT 12/30/2019 1:11 Ulcer of left foot, PM CDT unspecified [...] the results section. POCT-GLUCOSE METER Routine 12/28/2019 5:43 Resul ts [...] CDT procedure are in the results section. ABD AO & LOWER EXT 12/28/2019 2:30 Nonhealing ANGIOS/ POSS PPI AM CDT nonsurgical wound POCT-GLUCOSE METER Routine 12/27/2019 8:32 Resul ts [...] SARS-COV2/RT-PCR Routine 12/23/2019 3:59 Results for this (HS & REF LABS) AM CDT procedure are [...] procedure are in the results section. after 01/09/2019 Results EKG-SCANNED (01/05/2020 8:40 AM CDT) Narrative [...] period is included. POC-Glucose Meter 102Comment: : 70 - [address] [facility] ST WEEKS TESTED AT [facility] mg/dL [facility] [address] [facility] [address]: Sheet Metal Worker Maintenance/Technicia n ID = [id number] for Anne Salgado Specimen Blood Performing Organization Address City/State/Zipcode Phone Number [facility] TAE [facility] MEDICAL [address] [place] [address] CENTER CBC with platelet count + automated diff (01/01/2020 5:37 AM CDT)Only the most recent of16 resultswithin the time period is included. Pathologist Sig nature WBC 5.7 4.0 - 10.0 [place] K/L [facility] RBC 2.41 (L) 4.00 - 5.00 [place] M/L [facility] Hemoglobin 7.2 (L) 12.0 - 15.5 [place] GM/DL [facility] Hematocrit 23.4 (L) 36.0 - 46.0 % [facility] MCV 97.1 82.0 - 99.0 fL [facility] MCH 29.9 27.0 - 33.0 pg [place] MCHC 30.8 (L) 32.0 - 36.0 [place] GM/DL [facility] RDW 22.0 (H) 12.0 - 15.0 % [place] [place] Platelets 84 (L) 150 - 430 K/CU [place] MM [facility] MPV 10.5 6.0 - 11.5 fL [place] [facility] nRBC 0 0 - 0 /100 WBC [place] [facility] % Neutros 62 % [place] [facility] % Lymphs 29 % [place] [facility] % Monos 5 % [place] [facility] % Eos 2 % [place] [facility] % Baso 1 % [place] # Neutros 3.54 1.80 - 8.00 [place] K/L [facility] # Lymphs 1.66 1.48 - 4.50 [place] K/L [facility] # Monos 0.28 0.00 - 1.30 [place] K/L [facility] # Eos 0.12 0.00 - 0.50 [place] K/L [facility] # Baso 0.07 0.00 - 0.20 [place] K/L [facility] Immature 0 0 - 0 % [place] Granulocytes-Relativ LABORATORY e Specimen Blood Performing Organization Address City/[facility]/Zipcode Phone Number [facility] [address] [place], [place] [address] Comprehensive metabolic panel (01/01/2020 5:37 AM CDT)Only the most recent of14 resultswithin the time period is included. Protein, Total 6.1 6.0 - 8.5 [place] gm/dL [facility] Albumin 2.3 (L) 3.5 - 5.0 [place] g/dL [facility] Alkaline 81 30 - 115 U/L [place] Phosphatase LAB[facility]ORY Total Bilirubin 0.4 0.1 - 1.2 [place] mg/dL [facility] Sodium 137 135 - 148 [place] meq/L [facility] Potassium 3.7 3.6 - 5.5 [place] meq/L [facility] Chloride 100 98 - 106 [place] meq/L [facility] CO2 28 20 - 29 meq/L [facility] BUN 14 10 - 26 mg/dL [facility] Creatinine 2.31 (H) 0.50 - 1.20 [place] mg/dL [facility] Glucose 100 70 - 110 [place] mg/dL [facility]ORY Calcium 7.5 (L) 8.5 - 10.5 [place] mg/dL [facility]ORY AST 15 5 - 40 U/L [facility] ALT 6 5 - 50 U/L [facility] EGFR 21Comment: mL/min/1.73 [place] ESTIMATED GFR IS sq m LABORATORY NOT ACCURATE CREATININE CLEARANCE IN PREDICTING GLOMERULAR FILTRATION RATE. ESTIMATED GFR IS NOT APPLICABLE FOR DIALYSIS PATIENTS. Specimen Blood Narrative Performed At Sheet Metal Worker Maintenance ID - ADMIN [facility] Performing Organization Address [facility]/Zipcode Phone Number [facility] [address] [place], [place] [address] Magnesium (12/31/2019 6:05 AM CDT) Pathologist Sig nature Magnesium 1.6 1.5 - 3.0 mg/dL [facility] Specimen Blood Narrative Performed At Sheet Metal Worker Maintenance ID - ADMIN [facility] Performing Organization Address City/[facility]/Zipcode Phone Number [facility] [address] [place], [place] [address] Anaerobic culture (12/30/2019 1:59 PM CDT)Only the most recent of2 results within the time period is included. Pathologist Sig nature Result No anaerobes isolated [facility] Result <1+ Coagulase negative [facility] Staphylococcus (A) LAB[facility] Specimen Tissue - Structure of left foot (body st ructure) Organism Antibiotic Method Susceptibility Coagulase negative Staphylococcus Oxacillin 1: Susceptible Coagulase negative Staphylococcus Rifampin <=0.5: Susceptible Coagulase negative Staphylococcus Vancomycin <=0.5: Susceptible Performing Organization Address City/[facility] Cent[facility] Phone Number [facility] [address] [place], [place] [address] Surgically obtained culture + gram stain (12/30/2019 1:59 PM CDT)Only the most recent of2 resultswithin the time period is included. Result 2+ Stenotrophomonas [facility] maltophilia (A) [facility] Gram Stain Result <1+ WBCs [facility] Gram Stain Result No organisms seen [facility] Specimen Tissue - Structure of left foot (body st ructure) Organism Antibiotic Method Susceptibility Stenotrophomonas maltophilia Levofloxacin 1: Susceptible Stenotrophomonas maltophilia Trimethoprim + Sulfamethoxazole <=20: Susceptible Performing Organization Address City/[facility] Cent[facility]ode Phone Number [facility] [place], [place] [address] Tissue Exam (12/30/2019 1:38 PM CDT) Case Report Surgical Pathology Report Case: [id number] [facility] Authorizing Provider: Tala Lemus DPM Collected: 12/30/2019 01:38 PM LABORATORY Ordering Location: [address] Med/Surg Received: 12/31/2019 06:52 AM Pathologist: Jovita Griffith MD Specimens: A) - Soft Tiss ue, Other, left 5th proximal phalanx B) - [place] tarsal, Left, left 5th metatarsal DIAGNOSIS A. BONE, LEFT FIFTH PROXIMAL PHALANX, BIOPSY: [facility] Electronically - SKIN WITH UNDERLYING CA RTILAGE WITH SURROUNDING ACUTE AND CHRONIC INFLAMMATION LABORATORY signed by Jovita Griffith MD B. BONE, LEFT FIFTH METATARSAL, BIOPSY: on 01/04/2020 at - ACUTE OSTEOMYELITIS 10: 21 AM - SEPARATE FRAGMENTS OF F IBROCONNECTIVE TISSUE WITH ABSCESS, NECROSIS AND GRANULATION TISSUE FORMATION Signing Pathologist Direct Phone Line: [phone] CPT Code(s) MG/ew [place] [address] x2 LABORATORY [address] x2 CLINICAL HISTORY Osteomyelitis of left [place] 5th metatarsal, ulcer LABORATORY of bilateral feet SPECIMEN SOURCE A. Left 5th proximal [place] phalanx. B. Left 5th LABORATORY metatarsal GROSS DESCRIPTION Specimen A is received in fi xative labeled with the patient's name and medical record number and designated as "soft tissue, other", consists of white-yellow bone fragments measuring 0.7 x 0.3 x 0.3 cm. [facility] The specimen is submitted entirely into A1 and into decal solution. LABORATORY Specimen B is received in fi xative labeled with the patient's name and medical record number and designated as "metatarsal left", consists of four red-brown tissue and bone fragments measuring 2.0 x 0.5 x 0.5 cm in aggregate. the specimen is entirely B1 and into decal solution. MG/ew MICROSCOPIC A-B. Performed. [facility] DESCRIPTION LABORATORY Gross assessment [facility] at Hospital, Department LABORATORY of Pathology, [address] [place] [address], Technical [facility] component was [facility] Center, LABORATORY performed at Department of Pathology, [address] [place] [address], Professional [facility] component was Hospital, Department LABORATORY performed at of Pathology, [address] [place] [address], Specimen Tissue - Soft tissue (navigational alda pt) Tissue specimen (specimen) - Metatarsal, Left Narrative Performed At This result has an attachment that is no t available. Performing Organization Address City/State/Zipcode Phone Number [facility] [address] [place] [phone] SARS-CoV2/RT-PCR (Asymptomatic ONLY) (12/30/2019 5:11 AM CDT)Only the most recent of3 resultswithin the time period is included. SARS-COV2/RT-PCR Negative Not Detected, KATHRYN FOOTE Negative, See [facility] external report CENTER for linked test SARS-COV-2 [facility] JANET FOOTE PERFORMING LAB [facility] Specimen Other - Nasopharyngeal wall structure (b yocasta structure) Narrative Performed At Negative result for this test determines that KATHRYN PANDYASam [facility] SARS-CoV-2 RNA was not present in the [...] the Act. Fact Sheet for Healthcare Providers: https://www.Mixify.Codelearn/sites/default/files/pro duct/documents/Fact_Sheet_HC_Providers_Janet_ RS-CoV-2.pdf Fact Sheet for Healthcare Patients: https://www.Mixify.Codelearn/sites/default/files/pro duct/documents/Fact_Sheet_Patients_Lyra_SARS-C oV-2.pdf Performing Laboratory: [address] [place] [address] Performing Organization Address City/State/Zipcode Phone Number [facility] [address] [place] [address] CENTER MR lower extremity without IV contrast left side (12/27/2019 4:30 PM CDT) Specimen Narrative Performed At FINAL REPORT [facility] MRI OF THE LEFT FOOT WITHOUT CONTRAST [...] Lynda Ring MD Report Verified Date/Time: 12/27/2019 16:55:07 Reading Location: [facility] Radiology Reading Room Procedure Note Interface, External [...] Verified Date/Time: 12/27/2019 1 6:55:07 Reading Location: [facility] Radiology Reading Room Performing Organization Address City/State/Zipcode Phone Number [facility] Wound culture + gram stain (12/27/2019 12:02 PM CDT) Result 1+ Stenotrophomonas [place] maltophilia (A) LABORATORY Result 1+ Kary parapsilosis [place] (A) [facility] Gram Stain Result <1+ WBCs [facility] Gram Stain Result <1+ gram negative rods [facility] Specimen Wound - Structure of right foot (body st ructure) Organism Antibiotic Method Susceptibility Stenotrophomonas maltophilia Levofloxacin 2: Susceptible Stenotrophomonas maltophilia Trimethoprim + Sulfamethoxazole <=20: Susceptible Performing Organization Address City/[facility]/Zipcode Phone Number [facility] [address] [facility] [place], [place] [address] TRANSFUSION SERVICE REPORT - SCAN (12/26/2019 6:02 PM CDT)Only the most recent of2 resultswithin the time period is included. Narrative Performed At This result has an attachment that is no t available. CTA AAA and Runoff (12/26/2019 3:27 PM CDT) Specimen Narrative Performed At Addendum Begins GE [facility] REPORT STATUS:A I agree with the nonvascular findings wi th exceptions and emphasis as below: *Moderate right and small left pleural e ffusions are partially visualized. *Large volume ascites. *Diffuse anasarca *The reflux of contrast into the hepatic veins is concerning for volume overload. Signed: Gerry Crum MD Report Verified Date/Time: 12/27/2019 11:38:28 Reading Location: [facility] Reading Room - [place] [address] FIN[address] REPORT CT angiography of the abdominal aorta an d runoff, 26-Dec-19 INDICATION: This is a 64 year old female with with lower leg penetrating trauma presents for assessme nt. TECHNIQUE: Spiral acquisition before and during intravenous contrast administration using a Asanti multidetector CT scanner. Images were obtained before and during the dynamic p assage of intravenous contrast material. Multi-planar 3-D vo lume-rendering reconstruction was performed using an independent works [...] identified. However, significant calcification identified of the atka left SFA, for e xample at image [...] righ t popliteal artery is patent, with [id number] diffuse calcificat ion identified with no obstructive [...] rosclerosis identified. 4. In the right, the atka right SFA is not filled by contrast [...] clinically. 7. An addendum will be dictated regard ing the non-vascular findings by the [employer] Radiologist. Signed: Shlomo Dockery MD Report Verified Date/Time: 12/27/2019 07:59:51 Reading Location: [place] [address] [address] Reading Room Procedure Note Interface, External [...] Verified Date/Time: 12/27/2019 1 1:38:28 Reading Location: [facility] Reading Room - [place] [address] Add[address]um Ends FINAL REPORT CT angiography of the abdominal aorta an d runoff, 26-Dec-19 INDICATION: This is a 64 year old female with with lower leg penetrating trauma presents for assessme nt. TECHNIQUE: Spiral acquisition before and during intravenous contrast administration using a Asanti multidetector CT scanner. Images were obtained before [...] identified. However, significant calcification identified of the atka left SFA, for e xample at image [...] righ t popliteal artery is patent, with [id number] diffuse calcificat ion identified with no obstructive [...] rosclerosis identified. 4. In the right, the atka right SFA is not filled by contrast [...] regardi ng the non-vascular findings by the [employer] Radiologist. Signed: Shlomo Dockery MD Report Verified Date/Time: 12/27/2019 0 7:59:51 Reading Location: [place] [address] [address] Reading Room Performing Organization Address City/[facility] Phone Number GE RIS Prepare Leuko-Red RBC (12/25/2019 11:54 PM CDT) Pathologist Sig nature CROSSMATCH COMPATIBLE SAFETRACE TX Unit ABO O Pos SAFETRACE TX UNIT NUMBER [id number] SAFETRACE TX Status TX_TIMEINCHART SAFETRACE TX Blood Bank Product RED BLOOD CELLS SAFETRACE TX PRODUCT CODE [id number] SAFETRACE TX Specimen Other Performing Organization Address [facility] Phone Number SAFETRACE TX Transfuse Leuko-Red RBC (12/24/2019 7:06 PM CDT)ABORH, manual (12/24/2019 8:25 AM CDT) Pathologist Sig nature Rh Factor POS [facility] ABO Grouping OComment: [place] [facility] 12/24/19 @ [address] [place] [address] Specimen Blood Performing Organization Address [facility] Phone Number [facility] [address] [place], [place] [phone] [facility] Type and screen, automated (12/24/2019 6:08 AM CDT) Pathologist Sig nature ABO/RH AUTOMATED O [facility] (BEAKER) POSITIVEComment [facility] : ECHO Ab Scrn NEGATIVEComment [facility] : [facility] Specimen Blood Performing Organization Address [facility] Phone Number [facility] [address] [place], [place] [phone] [facility] MR lower extremity joint only without IV [...] Margot Jordan MD Report Verified Date/Time: 12/23/2019 16:10:32 Reading Location: [address] Reading Room Procedure Note Interface, External [...] Verified Date/Time: 12/23/2019 1 6:10:32 Reading Location: [address] Reading Room Performing Organization Address City/State/Zipcode Phone Number [facility] MR brain without IV contrast (12/23/2019 3:34 PM CDT) Specimen Narrative Performed At FINAL REPORT [facility] MR, BRAIN, WITHOUT CONTRAST INDICATION: Headache, post [...] Mable Muniz MD Report Verified Date/Time: 12/23/2019 15:43:24 Procedure Note Interface, External Ris In [...] 5:43:24 Performing Organization Address City/State/Zipcode Phone Number [facility] Arterial Doppler Legs Bilateral (12/23/2019 9:38 AM CDT) Specimen Narrative Performed At FINAL REPORT [facility] EXAM: Bilateral Lower Extremity Arterial Ultrasound HISTORY: [...] Alberto Ball MD Report Verified Date/Time: 12/23/2019 11:22:31 Reading Location: [facility] Radiology Readin g Room Procedure Note [...] Verified Date/Time: 12/23/2019 1 1:22:31 Reading Location: [facility] Radiology [facility] Performing Organization Address City/State/Zipcode Phone Number [facility] Ammonia (12/23/2019 4:05 AM CDT)Only the most recent of2 resultswithin the time period is included. Pathologist Sig nature Ammonia 36 17 - 80 mol/L [facility] Specimen Blood Narrative Performed At Sheet Metal Worker Maintenance ID - ADMIN [employer] LABORATORY Performing Organization Address [facility] Phone Number [employer] [facility] [address] [place], [place] [address] C-Reactive Protein (12/21/2019 4:39 AM CDT) Pathologist Sig nature CRP 1.63 (H) 0.00 - 0.50 mg/dL [facility] Specimen Blood Narrative Performed At Sheet Metal Worker Maintenance ID - ADMIN [facility] Performing Organization Address [facility] Cent[facility] Phone Number [facility] [address] [place], [place] [address] US abdomen complete (12/20/2019 9:17 PM CDT) Specimen Narrative Performed At FINAL REPORT GE RIS INDICATION: thrombocytopenia / eval for hepatosplenomegaly COMPARISON: None. TECHNIQUE: Real-time transabdominal gr ay scale and color Doppler ultrasound of the abdomen. FINDINGS: Liver: Size: 14.3 cm. Echogenicity: Heterogeneous Masses/lesions: None. Intrahepatic bile ducts: Normal. Common bile duct: 0.7 cm. MPV: 1.0 cm. Gallbladder: Bowel noted within the gallbladder fossa . The gallbladder is not identified. Pancreas: Head and uncinate process: Not we ll visualized due to overlying bowel gas. Body and tail: Not well-seen. Spleen: Size: 11.8 x 4.8 x 4.0 cm. Echogenicity: Unremarkable. Right kidney: Size: 11.0 x 4.4 x 1.4 cm. Parenchyma: Increased echogenicit y. No cysts. No stones. Hydronephrosis: None. Left kidney: Size: 11.3 x 4.5 x 1.3 cm. Parenchyma: Increased echogenicit y. No cysts. No stones. Hydronephrosis: None. Ascites: Present. Regional Vasculature: The visible abdomi nal aorta, IVC and hepatic veins are patent. Additional findings: Right pleural effus ion present. IMPRESSION: Ascites. The gallbladder is not visualized. No hepatosplenomegaly. The pancreas is not well-visualized. Increased renal echogenicity is a nonspe cific finding but can be seen with medical renal disease. Signed: Hever Portillo MD Report Verified Date/Time: 12/20/2019 22:02:21 Procedure Note Interface, External Ris In [...] seen with medical renal disease. Signed: Hever Portillo MD Report Verified Date/Time: 12/20/2019 2 2:02:21 Performing Organization Address City/State/Zipcode Phone Number [facility] brain without IV contrast (12/20/2019 4:04 PM CDT) Specimen Narrative Performed At FINAL REPORT [facility] CT, BRAIN, WITHOUT CONTRAST INDICATION: Head trauma, [...] is recommended for furthe r characterization. Signed: Mable Muniz MD Report Verified Date/Time: 12/20/2019 16:08:40 Procedure Note Interface, External Ris In [...] is recommended for furthe r characterization. Signed: Mable Muniz MD Report Verified Date/Time: 12/20/2019 1 6:08:40 Performing Organization Address City/State/Zipcode Phone Number [facility] Blood gas, arterial (12/20/2019 2:28 PM CDT) pH, Arterial 7.33 (L) 7.35 - 7.45 [facility] pCO2, Arterial 58 (H) 35 - 45 mmHg [facility] pO2, Arterial 109 (H) 80 - 90 mmHg [facility] O2 Sat, Arterial 97.5 (H) 96.0 - 97.0 % [facility] HCO3, Arterial 30 (H) 21 - 29 mmol/L [facility] Base Excess, Arterial 2.6 -2.0 - 3.0 [facility] mmol/L [facility] Patient Temperature 37.0 C [facility] FIO2 32.0 % [facility] Specimen Blood, Arterial Performing Organization Address City/State/Zipcode Phone Number [facility] [address] [place], [place] [address] XR foot 2 views right (12/20/2019 11:55 AM CDT) Specimen Narrative Performed At FINAL REPORT GE RIS TECHNIQUE: Two views of the right foot [...] Alberto Ball MD Report Verified Date/Time: 12/20/2019 15:15:25 Reading Location: [facility] Radiology Readin g Room Procedure Note [...] Verified Date/Time: 12/20/2019 1 5:15:25 Reading Location: [facility] Radiology Readin g Room Performing Organization Address City/State/Zipcode Phone Number [facility] XR foot 2 views left (12/20/2019 11:55 AM CDT) Specimen Narrative Performed At FINAL REPORT GE RIS TECHNIQUE: Two views of the right foot [...] Alberto Ball MD Report Verified Date/Time: 12/20/2019 15:15:25 Reading Location: [facility] Radiology Readin g Room Procedure Note [...] Verified Date/Time: 12/20/2019 1 5:15:25 Reading Location: [facility] Radiology Readin Room Performing Organization Address [facility] Centercode Phone Number GE [facility] Occult blood, stool (12/20/2019 6:19 AM CDT) Pathologist Sig nature Occult blood Negative Negative [facility] Specimen Stool - Feces (substance) Performing Organization Address [facility] Cent[facility]ode Phone Number [facility] [address] [place] [address] Peripheral Blood Smear - Path Review (12/20/2019 5:06 AM CDT) RBC Morphology Target Cells [facility] Nucleated Red Blood Cells Pathologist Review Normochromic normocytic [facility] anemia with a few LABORATORY target cells, nucleated RBCs and basophilic stippling. No increase in schistocytes. WBCs normal in number and morphology. Thrombocytopenia with normal platelet morphology. Pathologist: Jovita Griffith M.D. [facility] (electronic signature) LABORATORY Specimen Blood Performing Organization Address [facility] Phone Number [facility] [address] [place] [address] Vitamin B12 and Folate (12/20/2019 5:06 AM CDT) Pathologist Sig formerly [facility] Vitamin B12 1,431 (H) 211 - 911 pg/mL [facility] Folate 17.00 >=5.4 ng/mL [facility] Specimen Blood Narrative Performed At Sheet Metal Worker Maintenance ID - ADMIN [facility] Performing Organization Address [facility] Cent[facility]ode Phone Number [facility] [address] [place] [address] TSH/Free T4 If Indicated (12/20/2019 5:06 AM CDT) Pathologist Sig formerly [facility] TSH 21.210 (H) 0.350 - 5.500 uIU/mL [facility] Y Specimen Blood Narrative Performed At Sheet Metal Worker Maintenance ID - ADMIN [facility] Performing Organization Address [facility]/Zipcode Phone Number [facility] [address] [place], [place] [address] PT/aPTT (12/20/2019 5:06 AM CDT) Pathologist Sig nature Protime 13.5 (H) 9.3 - 12.0 sec [facility] INR 1.25 <=5.90 [facility] PTT 38.2 (H) 23.0 - 35.0 sec [facility] Specimen Blood Narrative Performed At RECOMMENDED COUMADIN/WARFARIN INR THERAP Y RANGES [facility] STANDARD DOSE: 2.0 - 3.0 Includes: PROPHYLAXIS for venous thrombosis, systemic embolization; TREATMENT for venou s thrombosis and/or pulmonary embolus. HIGH RISK: Target INR is 2.5-3.5 for patients with mec hanical heart valves. Final Information (Auto Output) Final Information (Auto Output) Final Information (Auto Output) Performing Organization Address [facility] Centerc[facility] Phone Number [facility] [address] [place] [address] Iron, TIBC, % sat. (without ferritin) (12/20/2019 5:06 AM CDT) Pathologist Sig nature Iron 92.0 45.0 - 170.0 [facility] ug/dL TIBC 151 (L) 250 - 550 ug/dL [facility] Iron % Saturation 61 (H) 20 - 55 % [facility] Specimen Blood Narrative Performed At Sheet Metal Worker Maintenance ID - ADMIN [facility] Performing Organization Address [facility] Phone Number [facility] [address] [place], [place] [address] ROGER Titer & Pattern (12/20/2019 5:06 AM CDT) Pathologist Sig nature ROGER Titer 1:40 [facility] ICAL CENTER ROGER Pattern Speckled [facility] Specimen Blood Performing Organization Address City/[facility]/Zipcode Phone Number [address] [address] CENTER Boles / lambda light chains, serum (12/20/2019 5:06 AM CDT) Boles Lt 474.4 (H) 3.3 - 19.4 [facility] Chain,Free mg/L [facility] Lambda Lt 225.6 (H) 5.7 - 26.3 [facility] Chain,Free mg/L [facility] Boles/Lambda,Fr 2.10 (H) 0.26 - 1.65 [facility] ee Comment: INC[facility]PORATED Free kappa/lambda ratio in serum of normal individuals is 0.26-1.65. Excess production of free kappa or lambda chains can alter th is ratio. Monoclonal free light chains are found in serum of patients with multiple myeloma, Waldenstrom's macroglobulinemia, mu-heavy chain disease, primary amyloidosis, light chain deposition disease, monoclonal gammopathy of undetermined significance, and lymphoproliferative disorders. Measu rement of free light chain concentration in serum is useful for diagnosis, prognosis, monitoring disease activity and following response to therapy of these disorders. Specimen Blood Narrative Performed At Performing Lab [facility] [address] [place] [address] Jaguar Stein MD, PhD, CORI Performing Organization Address [facility] Phone Number [place] [address] INCORPORATED [address] [facility] Fibrinogen (12/20/2019 5:06 AM CDT) Pathologist [facility] Fibrinogen 340 200 - 400 mg/dL [facility] Specimen Blood Narrative Performed At Final Information (Auto Output) [facility] Performing Organization Address [facility] Phone Number [facility] [address] [place], [place] [address] D-dimer (12/20/2019 5:06 AM CDT) Pathologist Sig nature D-Dimer, Quant 1.09 (H) <0.50 mg/L [facility] Specimen Blood Narrative Performed At REGARDING D-DIMER RESULTS: The 98% NPV (Negative Predi ctive [facility] Value) for DVT/PE exclusion is 0.50 mg/L FEU as sugges merna by the coal wheeler and as approved by the FDA. Final Information (Auto Output) Performing Organization Address [facility] Phone Number [facility] [address] [place], [place] [address] Reticulocyte count (12/20/2019 5:06 AM CDT) Pathologist Sig nature % Retic 5.9 (H) 0.4 - 2.9 % [facility] Specimen Blood Performing Organization Address City/[facility]/Zipcode Phone Number [facility] [address] [place] [address] Anti-Nuclear Antibody (ROGER) (12/20/2019 5:06 AM CDT) Pathologist Sig nature ROGER Positive (A) Negative [facility] Specimen Blood Narrative Performed At Test performed by IFA method. [facility] Performing Organization Address City/[facility]/Zipcode Phone Number [place] [phone] [place] [address] CENTER T4, free (12/20/2019 5:06 AM CDT) Pathologist Sig nature Free T4 0.52 (L) 0.90 - 1.80 ng/dL [facility] Specimen Blood Narrative Performed At Sheet Metal Worker Maintenance ID - ADMIN [facility] Performing Organization Address City/[facility]/Zipcode Phone Number [facility] [address] [place], [place] [address] Protein electrophoresis, serum (12/20/2019 5:06 AM CDT) Albumin Fraction 2.4 (L) 3.5 - 5.5 [facility] g/dL [facility] Alpha 1 Fraction 0.4 0.2 - 0.4 [facility] g/dL [facility] Alpha 2 Fraction 0.4 (L) 0.5 - 0.9 [facility] g/dL [facility] Beta Fraction 0.8 0.6 - 1.1 [facility] g/dL [facility] Gamma Globulin 2.3 (H) 0.7 - 1.7 [facility] Fraction g/dL [facility] Interpretation Decreased albumin, [facility] suggestive of renal [facility] damage. Polyclonal MEDICAL CENTER elevation of gamma fraction, suggesting chronic inflammatory response. No monoclonal bands detected. Pathologist: KATHRYN Rothman MD (electronic [facility]ALTH [facility] signature) MEDICAL CENTER Protein, Total 6.3 6.0 - 8.3 [facility] gm/dL [facility] Specimen Blood Narrative Performed At Sheet Metal Worker Maintenance ID - [facility] Performing Organization Address City/State/Zipcode Phone Number [facility] [address] [place] [address] CENTER Haptoglobin (12/20/2019 5:06 AM CDT) Pathologist Sig nature Haptoglobin <8 (L) 14 - 258 mg/dL [facility] Specimen Blood Narrative Performed At Sheet Metal Worker Maintenance ID - [facility] Performing Organization Address City/[facility]/Zipcode Phone Number [address] [address] CENTER Ferritin (12/20/2019 5:06 AM CDT) Pathologist Sig nature Ferritin 595.00 (H) 10.00 - 291.00 ng/mL [facility] Specimen Blood Narrative Performed At Sheet Metal Worker Maintenance ID - ADMIN [facility] Performing Organization Address City/[facility] Centercode Phone Number [facility] [address] [place], [place] [address] Lactate dehydrogenase (LDH) (12/19/2019 5:35 AM CDT) Pathologist Sig nature LDH 178 107 - 206 U/L [facility] Specimen Blood Narrative Performed At Sheet Metal Worker Maintenance ID - ADMIN [facility] Performing Organization Address [facility] Centercode Phone Number [facility] [address] [place], [place] [address] Metabolic Panel (12/19/2019 5:35 AM CDT)Only the most recent of2 results within the time period is included. Sodium 138 135 - 148 meq/L [facility] Potassium 3.9 3.6 - 5.5 meq/L [facility] Chloride 99 98 - 106 meq/L [facility] CO2 30 (H) 20 - 29 meq/L [facility] BUN 47 (H) 10 - 26 mg/dL [facility] Creatinine 3.04 (H) 0.50 - 1.20 [facility] mg/dL LABORATORY Glucose 82 70 - 110 mg/dL [facility] Calcium 7.9 (L) 8.5 - 10.5 [facility] mg/dL LAB[facility] EGFR 15Comment: ESTIMATED mL/min/1.73 sq [facility] GFR IS NOT m LABORATORY ACCURATE CREATININE CLEARANCE IN PREDICTING GLOMERULAR FILTRATION RATE. ESTIMATED GFR IS NOT APPLICABLE FOR DIALYSIS PATIENTS. Specimen Blood Narrative Performed At Sheet Metal Worker Maintenance ID - ADMIN [facility] Performing Organization Address City/State/Zipcode Phone Number [facility] [address] [place], [place] [address] Hepatitis C antibody (12/16/2019 4:02 PM CDT) Pathologist Sig nature Hepatitis C Ab Nonreactive Nonreactive [facility] Specimen Blood Narrative Performed At Sheet Metal Worker Maintenance [facility] Performing Organization Address [facility] Centercode Phone Number [address] [address] CENTER Hepatitis B core antibody, total (12/16/2019 4:02 PM CDT) Pathologist Sig nature Hep B Core Total Ab Nonreactive Nonreactive [facility] Specimen Blood Narrative Performed At Sheet Metal Worker Maintenance ID - [facility] Performing Organization Address [facility] Phone Number [address] [address] CENTER Hepatitis B surface antibody (12/16/2019 4:02 PM CDT) Pathologist Sig nature Hep B S Ab <8.0 <8.0 mIU/mL [facility] Specimen Blood Narrative Performed At Sheet [employer] Worker Maintenance ID [facility] CENTER Performing Organization Address [facility] Phone Number [address] [address] CENTER Hepatitis B surface antigen (12/16/2019 4:02 PM CDT) Pathologist Sig nature HBsAg Screen Nonreactive Nonreactive [facility] Specimen Blood Narrative Performed At Sheet Metal Worker Maintenance ID - ADMIN [facility] Performing Organization Address City/State/Zipcode Phone Number [employer] [facility] [address] [facility] [place], [place] [address] IR Tunneled Catheter Insertion (12/16/2019 2:26 PM CDT) Specimen Narrative Performed At FINAL REPORT [facility] Tunneled dialysis catheter insertion. History: Renal failure. [...] the patient's medical record by the nurse. Information Systems Coordinator: Arlin Flores M.D. Loading Unit Tool Setter: none. Approach: Right internal jugular vein Estimated [...] guidance with a micropuncture needle. An ultrasound im age was saved to PACS. A 0.018 inch wire was placed through the needle into the right atrium. A 4 Qatari micropuncture sheath was placed and a 0.035 wire was advanced into the IVC. A subcutane ous tunnel was created in the left anterior chest wall by blunt dissec tion. A 23 cm tip to cuff 15.5 Qatari Duraflow 2 catheter was brou ght through the tunnel. The vessel tract was serially dilated. A pee l-away sheath was placed in the left IJ vein and the catheter was ad vanced through the sheath, with its distal tip terminating in the s uperior right atrium. The peel-away sheath was removed. The ports were flushed and aspirated easily following placement. The cathet er was sutured to the skin to secure its placement. The small jugula r incision site demonstrated prolonged bleeding and pressure [...] Arlin Flores MD Report Verified Date/Time: 12/16/2019 15:06:45 Reading Location: [facility] Radiology [facility] Room Procedure Note Interface, External Ris In [...] the patient's medical record by the nurse. Information Systems Coordinator: Arlin Flores M.D. Loading Unit Tool Setter: none. Approach: Right internal jugular vein Estimated [...] needle into the right atrium. A 4 Qatari micropuncture sheath was placed and a 0.035 wire was advanced into the IVC. A subcutaneo us tunnel was created in the left anterior chest wall by blunt dissec tion. A 23 cm tip to cuff 15.5 Qatari Duraflow 2 catheter was brou ght through [...] Verified Date/Time: 12/16/2019 1 5:06:45 Reading Location: [facility] Radiology Readin Room Performing Organization Address City/State/Zipcode Phone Number [facility] XR chest 1 view portable / bedside (12/16/2019 5:55 AM CDT) Specimen Narrative Performed At FINAL REPORT [facility] TECHNIQUE: Frontal view of the chest. INDICATION: [...] Arlin Flores MD Report Verified Date/Time: 12/16/2019 09:20:06 Reading Location: [facility] Radiology Readin Room Procedure Note Interface, External Ris In [...] Verified Date/Time: 12/16/2019 0 9:20:06 Reading Location: [facility] Radiology Readin g Room Performing Organization Address City/State/Zipcode Phone Number RIS Prothrombin time/INR (12/16/2019 4:08 AM CDT) Pathologist Sig formerly [facility] Protime 14.1 (H) 9.3 - 12.0 sec [facility] INR 1.31 <=5.90 [facility] Specimen Blood Narrative Performed At RECOMMENDED COUMADIN/WARFARIN INR THERAP Y RANGES [facility] STANDARD DOSE: 2.0 - 3.0 Includes: PROPHYLAXIS for venous thrombosis, systemic embolization; TREATMENT for venou s thrombosis and/or pulmonary embolus. HIGH RISK: Target INR is 2.5-3.5 for patients with mec hanical heart valves. Final Information (Auto Output) Final Information (Auto Output) Performing Organization Address City/State/Zipcode Phone Number [facility] [address] [place], [place] [address] after 01/09/2019 Insurance Payer Benefit Plan / Subscriber ID Effective Dates Phone Addre ss Type Group [place] MED[place]ID [place] [id number] 2011-Present CDC REVIEW CDC REVIEW [id number] 2019-[place] [address] [place] [address] Advance Directives For more information, please contact: [phone] Code Status Date Activated Date Inactivated Comments [...]
--- OUTSIDE RECORDS SUMMARY | 2020-01-10 16:51 | XMS REPORT | Continuity of Care Document ---
:[address] [facility] t Address [address] [place] [address] Care Team Providers Name Role Phone Landy Rendon Primary Care Physician LISA MOHAMUD Attending Clinician Unavailable Lisa Mohamud MD Attending Clinician Tracy Underwood MD Attending Clinician Urmila PIERRE, Cesia Attending Clinician [...] Unavailable Payers Payer Name Policy Type Policy Effective Date Expiration Date Sour ce Number ALMANZA [id number] [facility] MEDICAIDMEDICAID 00:00:00 - Marium [id number] Ce nter 2-Present [facility] [id number] [facility] [id number] 00:00:00 - [place] [address] Problems Condition Condition Condition Status Onset Resolution Last Treating Co mments Source Name Details Category Date Date Treatment Clinician Date Kidney Kidney Disease Active [facility] disease disease 12-15 [facility] Medical 00 Center S/P S/P Disease Active Overview: [facility] femoral-po femoral-po 6-05 Right on [facility] - pliteal pliteal 00:00: 08/05/17 Medical bypass bypass 00 Center surgery surgery Hyperlipid Hyperlipid Disease Active [facility] emia emia 5-10 [facility] - 00:[facility]: Medical 00 Center History of History of Disease Active [facility] IBS IBS 5-10 [facility] - 00:00: Medical 00 [place] Leukocytos Leukocytos Disease Active [facility] [...] rosis of 2-[address] [facility] [place] Medical artery of artery of 00 Cent er extremity extremity with with ulceration ulceration Acute CHF Acute CHF Disease Active [facility] 2-14 [facility] - [facility] Medical 00 Center COPD COPD Disease Active [facility] (chronic (chronic 2-14 [facility] - obstructiv obstructiv 00:00: Id dical e e 00 Center pulmonary pulmonary disease) disease) Controlled Controlled Disease Active [facility] type 2 type 2 2-14 [facility] - diabetes diabetes 00:00: Medica l mellitus mellitus 00 Center with with 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 y disorder, disorder, with with long-term long-term current current use of use of insulin insulin Smoker Smoker Disease Active [facility]14 [facility] - [facility]: Medical 00 Center Frequent Frequent Disease Active [facility] PVCs PVCs 2-12 [facility] - [facility] Medical 00 Center Essential Essential Problem Active [facility] (primary) (primary) Luke s - hypertensi hypertensi Me moria on on l Outpati ent Clinics Depression Depression Problem Active [facility] , , [facility] - unspecifie unspecifie Me moria d d l depression depression Ou tpati type type ent Clinics History of History of Problem Active [facility] cancer cancer [facility] Primary Primary Problem Active [facility] insomnia insomnia [facility] Chronic Chronic Problem Active [facility] acquired acquired [facility] - lymphedema lymphedema Me moria l Outpati ent Clinics Chronic Chronic Diagnosis Active CHI [...] diastolic Luke s - congestive congestive Me moria heart heart l failure, failure, Outpat i NYHA class NYHA class en t 2 2 Clinics Chronic Chronic Problem Active [facility] obstructiv obstructiv Janna kes - e e Memoria pulmonary pulmonary l disease, disease, Outpat i unspecifie unspecifie en t d COPD d COPD Clinics type 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 Active [facility] current current [facility] - use of use of Memoria insulin insulin l [facility] ent Clinics History of History of Problem Active [facility] stroke stroke [facility] - Memoria l [facility] ent Clinics 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2 [...] St disease disease [facility] - Memoria l [facility] ent Clinics Allergies, Adverse Reactions, Alerts Allergy Allergy Status Severity Reaction(s) Onset Inactive Treating Comm ents Source Name Type Date Date Clinician Trazodon Drug Active Nausea And [address] [facility] e Allergy Vomiting 2-12 [facility] - 00:[facility]: Medical 00 Center Amoxicil Propensi Active Diarrhea [facility] kenzie-Pot ty to 04-21 [facility] - Clavulan adverse 00:00: Medical ate reaction 00 Center s Basil Propensi Active Nausea Only [facility] ty to 04-21 [facility] - adverse 00:00: Medical reaction 00 Center s Morphine Propensi Active Anaphylaxis [address] ty to 04-21 [facility] - adverse 00:00: Medical reaction 00 Center s Nitrogly Propensi Active Nausea And [address] [facility] cerin ty to Vomiting 04-21 ONLY [facility] - adverse 00:00: Medical reaction 00 Center s Vancomyc Propensi Active Nausea And [address] in ty to Vomiting 04-21 [facility] - Analogue adverse 00:00: Medical s reaction 00 [place] Vancomyc Adverse Active vomiting [facility] t in HCl Reaction [facility] - Memoria l [facility] ent Clinics Nitrogly Adverse Active vomiting [facility] cerin Reaction [facility] - Memoria l [facility] ent Clinics Morphine Adverse Active headache, [facility] Sulfate Reaction breathing [facility] - [facility] Clindamy Adverse Active vomiting [facility] riley HCl Reaction [facility] Family History Family Member Diagnosis Comments Start Date Stop Date Source Natural father COPD [facility] Natural father Cancer [facility] Natural father Hypertension [facility] Natural mother No Known Problem [facility] Natural sister Asthma [facility] Natural sister COPD [facility] Social History Social Habit Start Date Stop Date Quantity Comments Source Sex Assigned At [facility] Exposure to Not sure [facility] - SARS-CoV-2 (event) [facility] Cigarettes smoked 2019-12-31 2019-12-[address] [facility] - current (pack per 00:00:00 00:00:00 [facility] day) - Reported Cigarette 2019-12-31 2019-12-[address] [facility] St bernardino - pack-years 00:00:00 00:00:00 [facility] Tobacco use and 2019-12-31 2019-12-[address] [facility] St Janna kes - exposure 00:00:00 00:00:00 [facility] Alcohol intake 2019-12-31 2019-12-[address] [facility] St Lay - 00:00:00 00:00:00 non-drinker of [facility] nter alcohol (finding) History of tobacco 2017-05-12 Current smoker [facility] - use 00:00:00 [facility] Smoking Status Start Date Stop Date Source Former smoker 2019-12-31 00:00:00 2019-12-31 00:00:00 [facility] Medications Ordered Filled Start Stop Current Ordering Indication Dosage Frequency Signature Comments Components Source Medication Medication Date Date Medication? Clinician (SIG) Name Name mupirocin 2019-03 Yes QD Apply [facility] (BACTROBAN) 0-03 topically Lay es - 2 % 10:49: daily. Medical ointment [address] [place] [address] collagenase 2019-03 Yes QD Apply [facility] t (SANTYL) 0-03 topically [facility] - 250 units/g 10:49: daily. Medi marilin ointment [address] [place] [address] bumetanide 2019-03 Yes 2mg [id number] Take [address] (BUMEX) 2 0-03 [id number] by mouth 3 [facility] - MG tablet 10:49: 3D (three) Medic al 00 times Center daily. insulin 2019-[address] [facility] regular 0-03 subcutaneo [facility]ukes - (HUMULIN 10:49: usly 4 Medical R,NOVOLIN 00 (four) Center R) 100 times unit/mL daily injection before meals and nightly Use as directed . metOLazone 2019-03 Yes 5mg Q.5D Take [address] (ZAROXOLYN) 0-03 by mouth 2 Janna kes - 5 MG tablet 10:49: (two) Medic al 00 times Center daily. allopurinoL 2019-03 Yes 100mg Q.5D Take [address] (ZYLOPRIM) 0-03 mg by [facility] - 100 MG 10:49: mouth 2 Medical tablet 00 (two) Center times daily. levothyroxi 2019-03 Yes 112ug Take [address] ne 0-03 mcg by [facility]ukes - (SYNTHROID, 10:49: mouth Medic al LEVOTHROID) 00 Every Center 112 MCG morning on tablet an empty stomach. folic acid 2019-03 Yes 1mg QD Take [address] (FOLVITE) 1 0-03 by mouth Luke s - MG tablet 10:49: daily. Medica l 00 Center isosorbide 2019-03 Yes 60mg QD Take [address] mononitrate 0-03 by mouth Luke s - (IMDUR) 60 10:49: daily. Medic al MG 24 hr 00 Center tablet buPROPion 2019-03 Yes 150mg QD Take [address] (WELLBUTRIN 0-03 mg by [facility] - SR) 150 MG 10:49: mouth Medica l 12 hr 00 daily. Center tablet sertraline 2019-03 Yes 25mg QD Take [address] (ZOLOFT) 25 0-03 by mouth Luke s - MG tablet 10:49: daily. Medica l 00 Center ferrous 2019-03 Yes 325mg Take 325 [facility] t sulfate 325 0-03 mg by [facility] - (65 FE) MG 10:49: mouth Medica l tablet 00 daily with Center breakfast. levoFLOXaci 2019-03 2020- Yes 250mg QD Take [address] n 0-02 10-12 tablet [facility]ukes - (LEVAQUIN) 00:00: 23:59 (250 mg Med ical 250 MG 00 :00 total) by Center tablet mouth daily for 10 days. fentaNYL Yes 1{patch Place [address] [facility] (DURAGESIC) 12-17 } patch onto Janna kes - 50 mcg/hr 00:00: the skin Medi marilin patch 00 every Center third day. melatonin 2019- No 10mg Take [address] 10 mg Tab 12-15 by mouth [facility]ukes - 11:04: 00:00 every Medical 38 :00 night as Center needed. NICOTINE 2020- No Place onto [facility] (NICODERM 12-15 the skin. Luke s - CQ TD) 11:03: 00:00 Medical 48 :00 Center aspirin 81 2019- No 81mg QD Take [address] MG EC 12-15 by mouth [facility]ukes - tablet 11:03: 00:00 daily. Medical 18 :00 Center isosorbide 2019- No 30mg QD Take [address] mononitrate 12-15 by mouth Lay es - (IMDUR) 30 10:59: 00:00 daily. Medi marilin MG 24 hr 29 :00 Center tablet acetaminoph Yes 1{tbl} Take 1 CH I [...] Q.5D Take [address] sulfate 325 -12-15 tablet [facility]ukes - (65 FE) MG 00:00: [...] [address] pratropium 06-01 puffs by Miguel A s - (COMBIVENT 00:00: 00:00 mouth via M edical RESPIMAT) 00 :00 inhaler Center 20-100 every 6 mcg/actuati (six) on Mist hours. inhaler insulin 2019- No 5U QD Inject [facility] detemir 06-01 0.05 mLs Shannon - (LEVEMIR 00:00: 00:00 (5 Units Medi [...] - MOUTH Memoria EVERYDAY l AT BEDTIME [facility] ent Clinics Isosorbide Isosorbide Yes Franki TAKE [address] [facility] Mononitrate Mononitrate Jas TABLET BY Lukes - ER ER MOUTH Memoria EVERY DAY l [facility] ent Clinics NIFEdipine NIFEdipine Yes Franki TAKE [address] [facility] ER ER Jas TABLET BY Lukes - MOUTH Memoria EVERY DAY l [facility] ent Clinics BuPROPion BuPROPion Yes Franki TAKE [address] HCl HCl Jas TABLET BY Lukes - MOUTH Memoria EVERY DAY l [facility] ent Clinics Acetaminoph Acetaminoph Yes Franki (Schedule [facility] en-Codeine en-Codeine Jas III Drug) Shannon - #3 #3 TAKE 1 Memoria TABLET BY l MOUTH [facility] EVERY 6 ent HOURS Clinics NEEDED FOR PAIN Carvedilol Carvedilol Yes Franki TAKE [address] [facility] [facility] Jas TABLET BY Lukes - MOUTH Memoria TWICE A l DAY [facility] ent Clinics Advair Advair Yes Franki INHALE 1 [facility] Diskus Diskus Jas DOSE BY Lukes - MOUTH Memoria TWICE l DAILY. [facility] RINSE ent MOUTH Clinics AFTER USE Atorvastati Atorvastati Yes Franki TAKE [address] [facility] [facility] n Calcium n Calcium Jas TABLET BY Lukes - MOUTH Memoria EVERY DAY l [facility] ent Clinics Allopurinol Allopurinol Yes Franki TAKE [address] [facility] Jas TABLET BY Lukes - MOUTH Memoria TWICE A l DAY [facility] ent Clinics Gabapentin Gabapentin Yes Franki TAKE [address] [facility] Jas CAPSULE BY Lukes - MOUTH Memoria THREE l TIMES A Outpati DAY ent Clinics Clopidogrel Clopidogrel Yes Franki TAKE [address] [facility] Bisulfate Bisulfate Jas TABLET BY Lukes - MOUTH Memoria EVERY DAY l [facility] ent Clinics Vitamin D Vitamin D Yes Franki TAKE ONE [facility] (Ergocalcif (Ergocalcif Jas CAPSULE BY Lukes - berta) berta) MOUTH ONE Memoria TIME PER l WEEK [facility] ent Clinics Furosemide Furosemide Yes Franki TAKE BY [facility] Jas MOUTH 1 [facility]ukes - TABLET Memoria NEEDED FOR l SHORTNESS Outpati OF BREATH ent MAY TAKE Clinics NEEDED IF WITH INCREASE EDEMA ProAir HFA ProAir HFA Yes Franki INHALE [address] [facility] Jas PUFFS 3 Lukes - TIMES A DAY l NEEDED FOR Outpati SHORTNESS ent OF BREATH Clinics Levemir Levemir Yes Franki INJECT [address] FlexTouch FlexTouch Jas UNITS [facility] es - [facility] IN l THE Outpati MORNING ent Clinics HydrALAZINE HydrALAZINE Yes Franki TAKE [address] [facility] HCl HCl Jas TABLET BY Lukes - MOUTH Memoria THREE l TIMES A Outpati DAY ent Clinics Vital Signs Vital Name Observation Time Observation Value Comments Source Heart rate 2020-01-01 08:41:00 60 /min [facility] Respiratory rate 2020-01-01 08:41:00 18 /min [facility] Oxygen saturation in 2020-01-01 08:41:00 100 /min [facility] - Arterial blood by Medical Ce nter Pulse oximetry Systolic blood 2020-01-01 08:32:00 162 mm[Hg] [facility] Diastolic blood 2020-01-01 08:32:00 73 mm[Hg] [facility] S [facility] Body temperature 2020-01-01 07:41:00 36.56 Deanne [facility] Body weight 2019-12-30 04:28:00 78.2 kg [facility] BMI 2019-12-30 04:28:00 27.00 kg/m2 [facility] Body height 2019-12-25 21:05:00 170.2 cm [facility] Procedures Procedure Date / Time Performed Performing Clinician [facility] e REPORT OF PROCEDURE - 2020-01-05 08:40:02 Provider, Default [facility] ENDOSCOPY SCAN Scanning [facility] RHYTHM STRIP - SCAN 2020-01-05 08:31:43 Provider, Default [facility] Scanning [facility] RHYTHM STRIP - SCAN 2020-01-05 08:31:42 Provider, Default [facility] Scanning [facility] RHYTHM STRIP - SCAN 2020-01-05 08:31:40 Provider, Default [facility] Scanning [facility] CARDIAC CATH REPORT - 2020-01-05 08:31:15 Provider, Default [facility] - SCAN Scanning [facility] CARDIAC CATH REPORT - 2020-01-05 08:31:13 Provider, Default [facility] POCT-GLUCOSE METER 2020-01-01 06:33:00 Cade [facility] COMPREHENSIVE METABOLIC 2020-01-01 05:37:00 Labolt [facility] CBC W/PLT COUNT & AUTO 2020-01-01 05:37:00 Labolt [facility] POCT-GLUCOSE METER 2019-12-31 20:50:00 Cade, [facility] POCT-GLUCOSE METER 2019-12-31 18:00:00 Cade, [facility] POCT-GLUCOSE METER 2019-12-31 11:42:00 Cade, [facility] POCT-GLUCOSE METER 2019-12-31 06:29:00 Cade [facility] METABOLIC 2019-12-31 06:05:00 Labolt [facility] MAGNESIUM 2019-12-31 06:05:00 Cade [facility] CBC W/PLT COUNT & AUTO 2019-12-31 06:05:00 [facility] POCT-GLUCOSE METER 2019-12-30 20:13:00 Cade [facility] POCT-GLUCOSE METER 2019-12-30 16:26:00 Cade [facility] SURGICALLY OBTAINED 2019-12-30 13:59:[address] [facility] - CULTURE + GRAM STAIN Medical Matthew ter ANAEROBIC CULTURE 2019-12-30 13:59:46 Tala Santacruz [facility] SURGICALLY OBTAINED 2019-12-30 13:54:[address] [facility] - CULTURE + GRAM STAIN Medical Matthew ter ANAEROBIC CULTURE 2019-12-30 13:54:56 Tala Santacruz [facility] TISSUE EXAM 2019-12-30 13:38:00 [facility] 2019-12-30 13:11:00 SantacruzTala pichardo Maggy [facility] POCT-GLUCOSE METER 2019-12-30 11:39:00 Pat Mohamud [facility] POCT-GLUCOSE METER 2019-12-30 05:39:00 Pat Mohamud [facility] SARS-COV2/RT-PCR ([facility] & 2019-12-30 05:11:00 Pat Mohamud [facility] - REF LABS) [facility] 2019-12-30 05:09:00 [facility] W/PLT COUNT & AUTO 2019-12-30 05:09:00 [facility] POCT-GLUCOSE METER 2019-12-29 21:09:00 [facility] POCT-GLUCOSE METER 2019-12-29 11:10:00 Pat [facility]ud[facility] HEMODIALYSIS INPATIENT 2019-12-29 08:12:17 Brandie Khan [facility] POCT-GLUCOSE METER 2019-12-29 06:10:00 [facility] 2019-12-29 05:50:[address] [facility] CBC W/PLT COUNT & AUTO 2019-12-29 05:50:00 LaboltLily [facility] POCT-GLUCOSE METER 2019-12-28 20:37:00 Pat [facility]ud[facility] POCT-GLUCOSE METER 2019-12-28 17:38:00 Pat MohamduUC [facility] POCT-GLUCOSE METER 2019-12-28 13:12:00 [facility] POCT-GLUCOSE METER 2019-12-28 05:43:00 Pat [facility]ud[facility] COMPREHENSIVE METABOLIC 2019-12-28 04:41:00 [facility] CBC W/PLT COUNT & AUTO 2019-12-28 04:41:00 JerichoChloeblanca PERALTA S t [facility] DIFFERENTIAL [facility] ABD AO & LOWER EXT 2019-12-28 02:30:00 Sakina Tamayo [facility] - ANGIOS/ POSS PPI [facility] POCT-GLUCOSE METER 2019-12-27 20:32:00 Pat Mohamud [facility] MR LOWER EXTREMITY 2019-12-27 16:30:00 Lily Echavarria [facility] - WITHOUT IV CONTRAST LEFT [facility] POCT-GLUCOSE METER 2019-12-27 14:06:00 Pat [facility]ud[facility] WOUND CULTURE + GRAM 2019-12-27 12:02:00 Annia Delgado CH I [facility] POCT-GLUCOSE METER 2019-12-27 06:44:00 Pat Mohamud [facility] POCT-GLUCOSE METER 2019-12-27 05:49:00 Pat Mohamud [facility] COMPREHENSIVE METABOLIC 2019-12-27 05:05:[address] [facility] CBC W/PLT COUNT & AUTO 2019-12-27 05:05:[address] [facility] S [facility] HEMODIALYSIS INPATIENT 2019-12-27 00:31:18 Brandie Khan [facility] POCT-GLUCOSE METER 2019-12-26 20:51:00 Pat Mohamud [facility] TRANSFUSION SERVICE 2019-12-26 18:02:44 Rocco Sepulveda [facility] REPORT - SCAN Scanning [facility] POCT-GLUCOSE METER 2019-12-26 16:42:00 [facility]/CTA AAA AND RUNOFF 2019-12-26 15:27:00 Sakina Tamayo [facility] POCT-GLUCOSE METER 2019-12-26 11:59:00 Pat Mohamud [facility] POCT-GLUCOSE METER 2019-12-26 06:09:00 Cade, Salman [facility] 2019-12-26 04:36:[address] [facility] CBC W/PLT COUNT & AUTO 2019-12-26 04:36:00 Labolt [facility] PREPARE LEUKO-REDUCED RBC 2019-12-25 23:54:00 Brandie Khan [facility] POCT-GLUCOSE METER 2019-12-25 20:51:00 Pat Mohamud [facility] TRANSFUSION SERVICE 2019-12-25 18:04:44 Rocco Sepulveda [facility] REPORT - SCAN Scanning [facility] POCT-GLUCOSE METER 2019-12-25 17:01:00 Pat Mohamud [facility] POCT-GLUCOSE METER 2019-12-25 11:25:00 Pat Mohamud [facility] 2019-12-25 05:59:[address] [facility] CBC W/PLT COUNT & AUTO 2019-12-25 05:59:00 Labolt [facility] POCT-GLUCOSE METER 2019-12-25 05:58:00 [facility] TRANSFUSE LEUKO-REDUCED 2019-12-24 19:06:17 [facility] RED BLOOD CELLS [facility] POCT-GLUCOSE METER 2019-12-24 16:15:00 Pat Mohamud [facility] ABORH, MANUAL 2019-12-24 08:25:00 Jovita Griffith [facility] POCT-GLUCOSE METER 2019-12-24 06:11:00 Pat Mohamud [facility] TYPE AND SCREEN, 2019-12-24 06:08:00 Brandie Khan [facility] es - AUTOMATED [facility] 2019-12-24 05:51:00 Labolt [facility] CBC W/PLT COUNT & AUTO 2019-12-24 05:51:00 [facility] POCT-GLUCOSE METER 2019-12-23 21:23:00 Pat Mohamud [facility] POCT-GLUCOSE METER 2019-12-23 16:42:00 Pat Mohamud [facility] MR LOWER EXTREMITY JOINT 2019-12-23 15:34:00 Tala Santacruz [facility] ONLY WITHOUT IV CONTRAST [facility] LEFT MR BRAIN WITHOUT IV 2019-12-23 15:34:[address] [facility] St L ukes - CONTRAST [facility] POCT-GLUCOSE METER 2019-12-23 11:16:00 Pat Mohamud [facility] ARTERIAL DOPPLER LEGS 2019-12-23 09:38:00 Tala Santacruz Thy [facility] BILATERAL [facility] AMMONIA 2019-12-23 04:05:00 Mariela Carrasco [facility] COMPREHENSIVE METABOLIC 2019-12-23 04:00:[address] [facility] CBC W/PLT COUNT & AUTO 2019-12-23 04:00:[address] [facility] S [facility] DIFFERENTIAL [facility] SARS-COV2/RT-PCR ([facility] & 2019-12-23 03:59:00 Pat Mohamud [facility] - REF LABS) [facility] POCT-GLUCOSE METER 2019-12-22 20:34:00 Pat Mohamud [facility] POCT-GLUCOSE METER 2019-12-22 16:43:00 Pat Mohamud [facility] POCT-GLUCOSE METER 2019-12-22 11:31:00 Pat Mohamud [facility] POCT-GLUCOSE METER 2019-12-22 06:30:00 Pat Mohamud [facility] COMPREHENSIVE METABOLIC 2019-12-22 05:14:[address] [facility] CBC W/PLT COUNT & AUTO 2019-12-22 05:14:[address] [facility] S t [facility] DIFFERENTIAL [facility] POCT-GLUCOSE METER 2019-12-21 20:26:00 Cade, [facility] POCT-GLUCOSE METER 2019-12-21 17:22:00 Pat Mohamud [facility] POCT-GLUCOSE METER 2019-12-21 12:35:00 [facility] POCT-GLUCOSE METER 2019-12-21 07:20:00 Pat Mohamud [facility] POCT-GLUCOSE METER 2019-12-21 05:52:00 [facility] C-REACTIVE PROTEIN 2019-12-21 04:39:00 Annia Delgado [facility] COMPREHENSIVE METABOLIC 2019-12-21 04:39:00 [facility] CBC W/PLT COUNT & AUTO 2019-12-21 04:39:00 [facility] US ABDOMEN COMPLETE 2019-12-20 21:17:00 Sakina Chen [facility] POCT-GLUCOSE METER 2019-12-20 20:23:00 Cade [facility] POCT-GLUCOSE METER 2019-12-20 17:31:00 [facility] CT BRAIN WITHOUT IV 2019-12-20 16:04:00 LaboltLily [facility] AMMONIA 2019-12-20 14:41:00 [facility] BLOOD GAS, ARTERIAL 2019-12-20 14:28:00 [facility] XR FOOT 2 VIEWS RIGHT 2019-12-20 11:55:[address] [facility] POCT-GLUCOSE METER 2019-12-20 11:28:00 Cade [facility] POCT-GLUCOSE METER 2019-12-20 06:20:00 Cade [facility] OCCULT BLOOD, STOOL 2019-12-20 06:19:00 Sakina Chen [facility] PT/APTT 2019-12-20 05:06:00 April Sakinara Carrillo [facility] FIBRINOGEN 2019-12-20 05:06:00 April [facility] D-DIMER 2019-12-20 05:06:00 [facility] IRON, TIBC, % SAT. 2019-12-20 05:06:00 AprilSakina [facility] (WITHOUT FERRITIN) [facility] VITAMIN B12 AND FOLATE 2019-12-20 05:06:00 [facility] Sakinara Carrillo [facility] RETICULOCYTE COUNT 2019-12-20 05:06:00 [facility] HAPTOGLOBIN 2019-12-20 05:06:00 [facility] TSH/FREE T4 IF INDICATED 2019-12-20 05:06:00 April Sakinara Chavis [facility] FERRITIN 2019-12-20 05:06:00 April Sakinara Carrillo [facility] ANTI-NUCLEAR ANTIBODY 2019-12-20 05:06:00 Sakina Chen [facility] (ROGER) [facility] KAPPA / LAMBDA LIGHT 2019-12-20 05:06:00 Sakina Chen [facility] SERUM [facility] PROTEIN ELECTROPHORESIS, 2019-12-20 05:06:[address] [facility] PERIPHERAL BLOOD SMEAR - 2019-12-20 05:06:00 Sakina Chenba [facility] - PATHOLOGIST REVIEW [facility] r COMPREHENSIVE METABOLIC 2019-12-20 05:06:[address] [facility] T4, FREE 2019-12-20 05:06:00 April [facility] ROGER TITER AND PATTERN 2019-12-20 05:06:00 Sakina Chen [facility] CBC W/PLT COUNT & AUTO 2019-12-20 05:06:00 Marcial Chapa [facility] POCT-GLUCOSE METER 2019-12-19 20:35:00 [facility] POCT-[facility]UCOSE METER 2019-12-19 16:06:00 Pat Mhoamud [facility] HEMODIALYSIS INPATIENT 2019-12-19 16:02:09 Sharri Fernanod [facility] BASIC METABOLIC PANEL (7) 2019-12-19 05:35:00 Marcial Chapa [facility] LACTATE DEHYDROGENASE 2019-12-19 05:35:00 Sakina Chen [facility] (LDH) [facility] CBC W/PLT COUNT & AUTO 2019-12-19 05:35:00 Marcial Chapa [facility] POCT-GLUCOSE METER 2019-12-19 05:24:00 Evens Mohamudruel [facility] POCT-GLUCOSE METER 2019-12-18 21:35:00 Evens Mohamudruel [facility] POCT-GLUCOSE METER 2019-12-18 16:05:00 [facility] POCT-GLUCOSE METER 2019-12-18 07:45:00 [facility] POCT-GLUCOSE METER 2019-12-18 06:14:00 Cade [facility] POCT-GLUCOSE METER 2019-12-17 21:44:00 Pat Mohamud [facility] POCT-GLUCOSE METER 2019-12-17 17:52:00 Cade [facility] POCT-GLUCOSE METER 2019-12-17 12:22:00 Cade [facility] HEMODIALYSIS INPATIENT 2019-12-17 10:33:08 Brandie Khan [facility] POCT-GLUCOSE METER 2019-12-17 06:18:00 Cade [facility] CBC W/PLT COUNT & AUTO 2019-12-17 04:14:00 Marcial Chapa [facility] COMPREHENSIVE METABOLIC 2019-12-17 04:13:[address] [facility] POCT-GLUCOSE METER 2019-12-16 20:55:00 Pat Mohamud [facility] POCT-GLUCOSE METER 2019-12-16 18:24:00 Pat Mohamud [facility] HEPATITIS B SURFACE 2019-12-16 16:02:00 Aldulacey [facility] ANTIBODY [facility] HEPATITIS B SURFACE 2019-12-16 16:02:00 Aldulacey [facility] ANTIGEN [facility] HEPATITIS C ANTIBODY 2019-12-16 16:02:00 [facility] HEPATITIS B CORE 2019-12-16 16:02:00 Bill [facility] es - ANTIBODY, TOTAL [facility] POCT-GLUCOSE METER 2019-12-16 14:47:00 Pat Mohamud [facility] IR TUNNELED DIALYSIS 2019-12-16 14:26:00 Sharri Fernando [facility] CATHETER [facility] HEMODIALYSIS INPATIENT 2019-12-16 12:37:39 Bill [facility] POCT-GLUCOSE METER 2019-12-16 11:01:00 Pat Mohamud [facility] XR CHEST 1 VIEW 2019-12-16 05:55:00 Marcial Chapa [facility] PORTABLE/BEDSIDE [facility] POCT-GLUCOSE METER 2019-12-16 05:51:00 Pat Mohamud [facility] BASIC METABOLIC PANEL (7) 2019-12-16 04:08:00 Marcial Chapa [facility] PROTHROMBIN TIME/INR 2019-12-16 04:08:00 Marcial Chapa [facility] CBC W/PLT COUNT & AUTO 2019-12-16 04:08:00 Marcial Chapa [facility] SARS-COV2/RT-PCR ([facility] & 2019-12-16 01:45:[address] [facility] Plan of Care Planned Activity Planned Date Details Comments Source Future Scheduled 2020-12-[address] [facility]00 examination Medical Center (regime/therapy) [code = 792475431] Future Scheduled 2020-12-[address] [facility] Test 00:00:00 malignant neoplasm of [facility] colon (procedure) [code = 568033305] Future Scheduled 2019-11-[address] [facility] - Test 00:00:00 (#1) [code = Medical Center INFLUENZA VACCINE (#1)] Future Scheduled 2017-08-[address] [facility] - Test 00:00:00 measurement [facility] (procedure) [code = 29119070] Future Scheduled [address] [facility] - Test 00:00:00 (procedure) [code = Medical Center 25447720] Future Scheduled [address] [facility] - Test 00:00:00 malignant neoplasm of [facility] cervix (procedure) [code = 925656904] Future Scheduled 1965 DIABETIC EYE EXAM [facility] - Test 00:00:00 [code = DIABETIC EYE Medical Center EXAM] Future Scheduled 1965 Urine screening for [facility] - Test 00:00:00 protein (procedure) [facility] [code = 191485552] Future Scheduled [address] [facility] - Test 00:00:00 malignant neoplasm of [facility] breast (procedure) [code = 114198662] Encounters Start End Encounter Admission Attending Care Care Encounter Source Date/Time Date/Time Type Type Clinicians Facility Department ID 2018-11-17 2018-11-17 Outpatient Alison Wilson [id number] 11:30:00 11:30:00 [facility] Medicine Medicine Outpati ent Clinics 2018-10-06 2018-10-06 Outpatient Alison Wilson [id number] 16:14:00 16:14:00 [facility] Medicine Medicine Outpati ent Clinics 2018-09-28 2018-09-28 Outpatient Alison Wilson [id number] 10:30:00 10:30:00 [facility] Medicine Outpati ent Clinics Results Test Description Test Time Test Comments Results Result Comments Source ANAEROBIC CULTURE 2020-01-04 10:26:00 Test Item Value Reference Range Interpretation Comme nts CULTURE (BEAKER) (test code = 1095) No anaerobes isolated Tissue [id number] 10:21:00 Test Item Value Reference Range Interpretation Comments Case Report (test code Surgical Pathology = 104) Report Case: [id number] Authorizing Provider: Tala Santacruz DPM Collected: 12/30/2019 01:38 PM Ordering Location: [address] Med/Surg Received: 12/31/2019 06:52 AM Pathologist: Jovita Griffith MD Specimens: A) - Soft Tissue, Other, left 5th proximal phalanx B) - Metatarsal, Left, left 5th metatarsal DIAGNOSIS (test code = [id number] 3220) FuZzEwMzNcZnRuYmpcdWMx VJympcCdHJgzc2AkG5KwPm AwMFxhbnNpXGRlZmxhbmcx UDAlPCR2biSyHEGdQOufAW TaEFfpTy5muKZerIpmCvEt MMXie3iyqbZGjwvrqLh1z5 ubPFUsCzE4nPEdUZrfE9rd vjZeuZHbPEBxRUf5oL12HT SltA9rgEEkUYyeqeYsBoS7 ZOpoPNSqAnY2JBZlaHVlBA BjI5trHTXgUZgyWZLyNNoc cWBmGES9rItdb6F9oMEznH GrxBonRtGvIcFxKCHYo7Vu OXw5aYtmV0KaXWJoLtS6rZ QgUGFyYWdyYXBoIEZvbnQ7 lW53DSookhS3pIPcf0Uwe5 2ak335lP0jjGKoDPD9FJDs YWPovDZkKSPkQWU6MKFtaK YuP1a1UfSliEFhT5R7JdWf iTHaR4G5MkUvqOZoR8U5He DbzSMzQOQxhZWlIg2lnJJz bJTzdn7wiy57TJH3i1FaeO lfAIQ7PKR3GhKeMs9ryOWk CWAgQH1zSvXevWOgYQQcok 20kMioOMhamjLdmP1vWvBl MLOksZQsGQDnIN0upEHeHD QtvM5rahpaDNLoGcSnnxea EGJxdWtfhhBsDq7keFvyWY N2AZopJ3svcM2jFqW0HNre N1ptwR4qPQu4LZjnlHP8SH YogP6mTQ3lhyfxx8fbUsMk QA9kfxrny6mdLgAdDW3svc t9f1ciWmGwXP4rcxbqx2ty NzIwXGhlYWRlcnkwXGZvb3 TsynshOFFat7RaA1AboOyf G29ckBwtG01rJWGcdXyboB 4hnNbgxP9sXnEvCmOrWQgk bFxwbGFpblxmMVxmczIwXG ujtnqoPXRmDCfzW0jhOaNj KZEbxQjfUXhat5IfLEAtQL JqDqJiQW3kAj0EHDewMJFX LTYLLEKKWGEFJw6KPF3IOP ENOWPSPQ6QBAPDDV0YE6i5 WSDddwOvZILtRTLOMD6sW7 bDOUUEKaUJGfdQSJ9GUEAG UlRJTEFHRSBXSVRIIFNVUl CDQY6UTN8EVVQGTZGWJCPL RCBDSFJPTklDIElORkxBTU 1BVElPTlxwYXJccGFyIEIu IEJPTkUsIExFRlQgRklGVE ggTUVUQVRBUlNBTCwgQklP UFNZOlxwYXIgICAgLSBBQ1 EDFDTLO4UAL91ZWXiPCUeK IFxwYXIgICAgLSBTRVBBUk PNMEHAAgQJPYNNLMQaU8Ml EloLAe3PO60DSPUVKCSZYX HXS7TBMQTVNJRKNQPUP2NS Q9KlMT7WU5ZEJ3lCCXFGXA BHUkFOVUxBVElPTiBUSVNT YOBuBw9XFDXKAA9KNBIdxt 86QBE3DhJjw9I5ZXV4MZJa HAIqu4acZWXjvDAjOzQiVv NcZnRuYmpcdWMxXGRlZmYw l5tty900cWSoz7pbYGNoRq B8gVZvCNMzpSPmZ076QPUd QPumh0jrk1AcBCPlyPHhh9 Z1LJOArlgdcYx9iPcwA80a n2G6YrhwZ3cvFVLdTHApF7 IuOF4iTQZpGek4CCN2BYD8 SGZlGDNaP8TbOG0eZOUbeY NaJLd9d1iokOhoAADlONC0 n0geJSfdpiIfED4igp2hsG c5v3hfjuMgRNYaRONpwEJH MUWhW5OfuGjiPo9vyOg9xJ wwWljvHZN4Pkl4BP3nlt23 myf2oNxpSNBzhgodUeL6FR plBIAspblsEIj1FKybCLCl kFM5RAEnwLQsZ5RiADPeTM 9ihwz4RXX9GGzwIRWbAjS8 NDBcaGVhZGVyeTcyMFxmb2 45KDC0CvUlCZ9qA7Byx2H3 qI1ciBAzAQSzlLMjTcMoYK Hdzg7kuQWrHLzou6PaKMD8 kdO4lIGfaFBkPWLrEvN7FH vuPJ9jrw17ACMnGXO0dm4o bGNccGdicmRyaGVhZFxwZ2 XtJMDga388GSQwB4ZiPFXl n2T5qmEwGjKtNKUmeHL1nx E8JQSyJK9vgmmpo6hgMXci FHsnTCUmxnB1cgX4ECNxxU JsL7SfkR3hNZIdHJ3juguv o9qbOLW6YWazQTXlTLL1Ku PbAJUhl9Lmbpc4PzWft3Ae rBCuYNznB98fv859YHHlnn VvH1vbeGVehehmgOVtveou AUokcnE7VDYpVJqmmlrjUV QcCYxaW0dkYrLyPJEgfEik ATsws8SpWGZjLCAmKvRazP IlNSBuMnr8BUAiqHAvSGIq GiOyP8ajubqiViROTRZpf1 ksK8jgtRPQzCTrB9YuSXtb coUcOLdoNEjvLEH0HEQ5Tm 72IvW7CFRneo37 CPT Code(s) (test code v5srvPKgXQYcrLFhPnEfRP = 1261) AeVTSdg6ejKZAxwLSjPpWw MzNcZnRuYmpcdWMxXGRlZm Dve2hni138gQQam1duAPCk RxR2lYYsXKHgfIFsK903f1 sak5nfekAmuIN6SXQoNRR4 XKieynQnzuC4EFdzjVVtZb C8CNpfztDaLUotynKhclYq Ebh8JZFiA223TVC6bNcum2 ynUWQ6QOOcHRHwUnIfVo0l wDChQ462JXRqUAUAEVFrqS r2MKLvtkRgrcGtjZHMx722 Z340v9xhDXLnivPanZuMmv xad8cbQ367MUMjeLLiznAx IiZdZABneQQmmPG9ISHsQC 1upzsbWiXgSN0zyeezWpCa XP1fgql7TdImHY9amoqtMi AeGMocAGLdyjkhOWZcn3Py rlqzNG4sC8Dik0S7qH3hkM VzAYSovURdBeSjMGQoyy4g bHXtUIyjo5EhWTX8edL5uF VllOYkCIVcJQ00Xhevr7Iq QbnjERA0JJQhflYqp5Vyu3 krYiTverJvJ1egQ6DwCWPe CILiTHSeZyHcgzFsb7Dgy5 AceNUgiVb8x1wdNUAsWQGy wYjsy3oiDYK4USIfR5O0cQ Lqe3eoBXmcSQSjuAU3vkvv BQheTYCzyiW5zkqaLTdrRQ TibAF6dvljYZihYRGpXgS6 shigQWepJJXuPZW1QIzgc5 07PTV0FBtlKoaeXYyuYMKz bmNvbnRccGduZGVjXHBsYW luXHBsYWluXGYwXGZzMjRc gYmisOiorI5vZeUgBrNmQP doBW4xSXMyG7ijeYStBUBf REGoP0wvOiMrhP0yuUpwCB mdzhDyJT6LP2N0NLKbjsC4 SQCtUaB7LlybRMPfCKavYD EgeDJccGFyfQ== CLINICAL HISTORY (test k9syvVBjIZEydMNgQbWzDO code = 3352) YhCEUvz5hxXYXbzQWfIbQb MzNcZnRuYmpcdWMxXGRlZm Apb3lcz956pZMnf4goGGQe TeB7oCToJJAwuMMiL345s1 tjz0syioWqeSN5STEpFGM7 BLpjkvNjfmY1QQwefNIwMz R8XWuhvgLkJXfacrDkjeJy Ohz7UDArU388JUS1yNppr5 srNAZ5EDTyMLNfQoJqCp6h gFByY904YULlMQBXBFGinI j1BROdxjDytpDfwWTSu094 F759h8ocEVAhusBrpJxLtj uez4doJ433CPJrcVLbhaBj TlKqSVJixETntAZ9DUWbZB 1azqiaUxEvGD3kaqmoSxCn MY4ojks8DoEcQK9bptpsJt NaZPuqPYBdtbmtHFPty6Ap qsxtYO8vW0Lus1V9vM7slW XuZTMrdCCpRhMuPCXktu4i mKLvZJhci1ZvSNH5scF0kK SwxKKhQXFnRY82Posrq9Wq AmdbOBW7DSSmzqBef1Lzt1 rdLtNtraSiT0zgJ6BiPSSn DGYaPIYxIdDugdLqn2Ydc1 OvuYSftEl5k6vtJMKxSLKk xOebe1vnRCP5NEDbC9I2mB Kht0ejUTykRCJcvEO1eygt HKgjCRAkpsS5vjrbXPfzDT PyjXS8tgdiOIuoVXZaOuW3 mbzpYGzhKTUhVID1PPdmg2 52THS2LDfqDmzwXElkRQPx bmNvbnRccGduZGVjXHBsYW luXHBsYWluXGYwXGZzMjRc gFtcnXxewI1xKvAoTaCeWB cwVK7dNAUlV6fwkNBfVISx ITNdP1ooIdQpyL5nqFikNP yfjvGhHJ2srXIotVsexXm9 vVZha5CzgBSkrQF5vTfduP F1MQXgeoZuzUnthDzwAMFd n1YdKkfuRAAjzhXtPOKkRH RccGFyfQ== SPECIMEN SOURCE (test z9zwfXQfABVzaRPwSdOxFQ code = 3377) VtHBAky7kpNDOukRKzVwEb MzNcZnRuYmpcdWMxXGRlZm Znn5uqq239pLGps2abFFFh EgU5nPPaDZYqoHHqM316g8 fvy9xfqiTuuEN1YBPrUCO7 HBcgdcDhypU3CAgoyJScKq E0XSephmTpLChofkFtwrEd Yzz0IRKsD737DVD8lOxgm5 uwIFR4LIJxPCOqYxOsUw2w cKTrS353ZQKkJEDJGJRgkT p7FCJgzeWuvvTimGEQj287 S637p9ziPMHyptQzhExOvz quv4aeP582UAWvfNCfemUe DbDoEZArgQVxnJS4OIUkRV 4wxvtjOhFlIV2ikmklVdCi GE8lpey9XyPjQZ4kfcdtWk GiPWcjRACfaroqWCFzr4Ay ullrKV8sG1Qyo6O4qC8pjX LkLKAhgHAqBlEbIHTunh1j pQYeWIxun0VpWGD9jmW4fD SboRAlVMMyOU52Ecxqm9Ie MmsgVSG7PRWtuiWey4Fwp1 uaJeZvgfEmM4xeJ7PkPYQt YESmCAUlAdVdehEgy8Ali7 PrsVDthGg3y3qjEWBdBBBu jRnsy5jfCGW1RGNmP4A0kQ Jvc4ktMSqrHEXfzSD3knby XUboCRXskoD9jbaaMZixMQ FyaTX1sxdaGQjgRYAzZeU0 uccmFJuhUABsAVJ0VBydk8 09EGQ1PYzpQqmbRRhiIYMc bmNvbnRccGduZGVjXHBsYW luXHBsYWluXGYwXGZzMjRc bAyswKuwbH7bQnCnWqPlJC tmBU8uGTRhV2pgtEEvUYMe IXTlG1tzPzVeyS9ijMdtNW xmczIwIEEuIExlZnQgNXRo UIUfg9hnoAWgOVBxYPyoio sdDMBlFQdeEdRoRWQvAK4e pHB2OMOuTKoeORAqvy5= GROSS DESCRIPTION (test b8emrMPbQVDkhRVjXcSyBV code = 3366) WsOYYbp5zoVAYscNPjPeIp MzNcZnRuYmpcdWMxXGRlZm Rmc3gym795kIAdm9urDYNa LkG9zZVnCQSwtCHkE165XA DhXXplm9hpc8UvIRAcjHNq l0T6UCECtffkhJh5jJokE4 9yy9H2GhxgU8peDKKiOYEn U5HvVS2cUDUvXmf0TCO1TU E5CRNtLYLdL9GmWX5mGMNt oJQnKEv8q4xzpDjjBCUwQK P8e9stJHlssnWgBG9mcu1k bDm7y3ouayOpDXQqTNVueL GJFSOaL9WqjRwtMu0hhTh1 wZrgQcnhXGP3Qxt8PI8vks 86mce2rTasSZHoctwhTzX1 HYsiBMEyqkbxETl9OUbuPM JnbDcyMFxtYXJncjcyMFxt YXJndDcyMFxtYXJnYjcyMF hsPXCeXFM0BJkun085IEO2 NQsyi3rgs4wywVLbSsb5JZ OmNdFbOkgmTKeyy6Bqg1go FMDjsq8tGVQ2qQXomUlzl9 E4kDKtDNLgzDWrafCtZXIh AkL7BLzqWG5ify71BKUsRB K6pi9bcEUqvQojkvGfcFRq KTudZ3NaOWNps764INQpQ5 UuTTPux8Z2grKuBtZzQXZb aHW9wzU9OJKqSRc3jHOqld H5esPyaKMjN7ictK97GqEi rJRpX4PvcY24JeBjtWIdZ4 GuaV62VbHywAYpS6YrfC10 JcPdtQGbAWVsaIAvRo5rdY OtbHZhm9OxjFNdMMbhW78y f102WGKzqdBlR5mjgUZocw rtvQOcybfyBPcahsQ0DUXt XHBsYWluXGYwXGZzMjBcbG FuZzEwMzNcaGljaFxmMFxk IyVjMVTfRFxbW7xhNpPvFq NyQLFFlKIwzL1sokJDFZwp YDEjT3UuvkEjMAfcMDYbgG Z0pLTmUDwlFkUcRNWri6g1 kPE4uCYltDZ8vSHijEzeYI 4gfEWyNG2uPT3sKQpaTSls uwXtc9KoMP36dOOpmkXfig QgZGVzaWduYXRlZCBhcyAi v91vzDG4vHYdvSLzFP94wL FrYewhP75oa7rcaPVke3Mh j4qjoYZgaHDgmY96UTRyme ApCaHgS29xmaWzQE7gODU1 cmluZyAwLjcgeCAwLjMgeC FzAnTjE70bPLXuOEPhiLOc dC9aioHxxgQndKXbsBC4NT BuAM69pJPpmLtysS50rmVD RYHvmdUjwZ32rfIhHOZbcE Rum5p5vMjadp3duAHoCCZm osASpOTydP4suuDGGJfsCB QlJ7RzqlCsOXoqIGKyqVG7 vNUfXUodAyLxGCPxl7c4gM S3eJXylGR6qDRgrYdjFU5y hUBgHO4oGP3cKQdkTVhpey Nbk2EaDX94tRTthrJsacUk ZGVzaWduYXRlZCBhcyAibW S6VSVxzuGazQHdZRH9Kfuc R76yl0zatUJgt8CtCe81tq QlVGKbNrCgy49vxZvyh7Kv PJUeNDXje28uBDXrIJpjQF 64ynRyAEYfuVGappmpAq0v SDphGR54TDklFY65EABlAV hyQXOvZ6DmY2Y2WU3diTad IHNwZWNpbWVuIGlzIGVudG pdOYz7RRwlcRSmblnlLMao czIwXGxhbmcxMDMzXGhpY2 biGfJySZNyrDgsANarg7Hb WBLcEZQuCyTfKkJjSC7dAY hsoB5gDQUiNPuaa56nePFu z69sWHDjEWnzRGZnFHMkXb BcbGFuZzEwMzNcaGljaFxm MIwvXyYuNLAnSIheQ1mpWu BcZnMyMCAgTUcvZXdccGFy fQ== MICROSCOPIC DESCRIPTION r5couBHcNAUnrTVuMrIuTI (test code = 3371) LnBAJwb1kyFGLlbYYpBaWr MzNcZnRuYmpcdWMxXGRlZm Ynk1pnx684xSCsm6vsMTJd GhD2gPYyMFTepEEgP951i7 xoh6eszaAaxSA6OBBhCPJ5 ARxouxVlxbK9ALmnyPDnMd L4JGbulrOtBOjdkdOblkAx Yoe1JENqU143JAQ4bRjeb6 xtVQS9PNXtHIJiUsMfQp3y sDNhJ467VAXzDEMVZRElaW p1MOBiydUiujFuiSHSb566 Z352r9vwLMNkxnDrkCzFde jab8dhX667GLGfyANxvwXq MyOtCTHscGCjsSQ4GIAaJE 6lfvfwGlGvUQ2fqhzgRfJw AB6eeoq5FlOqFV7fxsjiUr IlDCrzUKUyjhctGYBaf5Tc pgqjKH3oH1Jnj5U2xG7hdC KoIFKwxUEtZyIeJQQrbz7e xAFjSOnnj3RjVHZ8qdE5hV FrxEVxPBZvSH92Eigiw4Zz UyaqETZ1JHHkzmHhx5Vuj7 wkAnNwqxHlL8bmH7WyVYJy FHDlGMNdOcVbpjJth2Gex1 ZqeYOnhTu2l4akTIPaOAKf kDzgj6pnZQS1BKTiS6T0jD Onc0qlZJsnYAZahTO3ybvl WMlyHNKjswR5liehDSugNQ DmeIJ9ssgeIIpmPXHgZlV5 zzzvLAcgHXTeTAM1KAozu7 29SDF8YKgyAhgyWHddVHNk bmNvbnRccGduZGVjXHBsYW luXHBsYWluXGYwXGZzMjRc iSygvReaqG0eDzKvDdOfBW dnRV1uDOVaD3rjwIAfLCWk TOLaH0dgVwOmgN7eqDppSK jslbAsEGIsLg6pQRPbEa2u bWVkLlxwYXJ9 Gross assessment was [facility] performed at ([facility], Department = 2777) of Pathology, [address] [place] [address], Technical component was [facility] performed at ([facility], = 2778) Department of Pathology, [address] [place] [address], [address] [facility] was performed at ([facility], Department code = 2779) of Pathology, [address] [place] [address], [id number] 10:21:00Surgical Pathology Report Case: [id number] Authorizing Provider: Tala Santacruz DPM Collected: 12/30/2019 01:38 PM Ordering Location: [address] Med/Surg Received: 12/31/2019 06:52 AM Pathologist: [...] TISSUE FORMATION Signing Pathologist Direct Phone Line: [phone] signed by Jovita Griffith MD on 01/04/2020 at 10:21 [id number] of left 5th metatarsal, ulcer of bilateral [...] entirely B1 and into decal solution. MG/Veronica-B. Performed.[facility] [place] [place], Department of Pathology, [address] [place] [address], [facility], Department of Pathology, [address] [place] [address], [facility] [address] [place] [place] Department of Pathology, [address] [place] [address], GTTOSKSZO [id number] 10:47:00 Test Item Value Reference Interpretation Comments [...] Vancomycin (test code S = 13) CULTURE ([employer]) (test A <1+ C oagulase code = 1095) negative Staphylococcus SURGICALLY OBTAINED CULTURE + GRAM [id number] 08:31:00 Test Item Value Reference Range Interpretation Comments CULTURE (BEAKER) (test code No growth = 1095) GRAM STAIN RESULT (BEAKER) <1+ WBCs (test code = 1123) GRAM STAIN RESULT (BEAKER) No organisms seen (test code = 05274) SURGICALLY OBTAINED CULTURE + GRAM [id number] 08:19:00 Test Item Value Reference Interpretation Comments Range CULTURE (BEAKER) STENOTROPHOMONAS A 2+ Sten otrophomonas (test code = 1095) MALTOPHILIA maltophil ia Levofloxacin (test S code = 22) Trimethoprim + S Sulfamethoxazole (test code = 47) GRAM STAIN RESULT <1+ WBCs (BEAKER) (test code = 1123) GRAM STAIN RESULT No organisms seen (BEAKER) (test code = 397915) POC-Glucose [id number] 06:47:00 Test Item Value Reference Range Interpretation Comments POC-Glucose Meter (test 102 mg/dL 70-110 : TE STED AT [facility] code = 1538) [address] [place] [facility] [address]: Pencil Sorter/Techni artemio ID = [id number] for Anne Salgado Lab Interpretation (test Normal code = 98266-7) [facility] [id number] 06:47:00 Test Item Value Reference Range Interpretation Comments POC-GLUCOSE METER 102 mg/dL 70-110 : TESTED A T [facility] 1317 (BEAKER) (test code [facility], = 1538) [facility] [address]: Pencil Sorter/Techni artemio ID = [id number] for Anne Busby Comprehensive metabolic [id number] 06:34:00 Test Item Value Reference Range Interpretation Comments Protein, Total (test 6.1 6.0- 8.5 gm/dL code = 2885-2) Albumin (test code = 2.3 g/dL 3.5-5 L 95417-7) Alkaline Phosphatase 81 U/L 30-115 (test code = 6768-6) Total Bilirubin (test 0.4 mg/dL 0.1-1.2 code = 1975-2) Sodium (test code = 137 meq/L 519-726 2715-2) Potassium (test code = 3.7 meq/L 3.6-5.5 2823-3) Chloride (test code = 100 meq/L 98-106 5-0) CO2 (test code = 28 meq/L -2027-9) BUN (test code = 14 mg/dL - 3094-0) Creatinine (test code 2.31 mg/dL 0.5-1.2 H = 2160-0) Glucose (test code = 100 mg/dL 70-110 2345-7) Calcium (test code = 7.5 mg/dL 8.5-10.5 L 29453-6) AST (test code = 15 U/L 5-40 1920-8) ALT (test code = 6 U/L 5-50 1742-6) EGFR (test code = 21 mL/min/1.73 [place] [address]-4) NOT ACCURATE CREATININE CLEARANCE IN PREDICTING GLOMERULAR FILTRATION RATE . ESTIMATED GFR I S NOT APPLICABLE FOR DIALYSIS PATIENTS. ZIA (test code = ZIA) Pencil Sorter ID - ADMIN Lab Interpretation Abnormal (test code = 34668-3) [facility] [id number] 06:34:00 Test Item Value Reference Range Interpretation [...] = 382) CO2 (BEAKER) (test 28 meq/L code = 355) BLOOD UREA NITROGEN 14 mg/dL 01-23 (BEAKER) (test code = 354) CREATININE (BEAKER) [...] S NOT APPLICABLE FOR DIALYSIS PATIEN TS. Pencil Sorter ID - ADMINCBC with platelet count + automated [id number] 06:06:00 Test Item Value Reference Range Interpretation [...] K/CU MM L MPV (test code = 69370-9) 10.5 fL 6-11.5 nRBC (test code = [...] 2801) Lab Interpretation (test code = Abnormal 92141-4) [facility] W/PLT COUNT & AUTO [id number] 06:06:00 Test Item Value Reference Range Interpretation [...] PERCENT (BEAKER) (test code = 2801) POCT-GLUCOSE [id number] 21:02:00 Test Item Value Reference Range Interpretation Comments POC-GLUCOSE METER 167 mg/dL 70-110 H : TESTED A T [facility] 1317 (BEAKER) (test code [facility] [address], = 1538) [place] [address]: Pencil Sorter/Techni artemio ID = [id number] for Anne Busby POCT-GLUCOSE [id number] 18:12:00 Test Item Value Reference Range Interpretation Comments POC-GLUCOSE METER 121 mg/dL 70-110 H : TESTED A T [facility] [address]17 (BEAKER) (test code [facility] [address], = 1538) [place] [id number]: Pencil Sorter/Techni artemio ID = [id number] for Cortney Cohen POCT-GLUCOSE [id number] 11:54:00 Test Item Value Reference Range Interpretation Comments POC-GLUCOSE METER 117 mg/dL 70-110 H : TESTED A T [facility] [address] (BEAKER) ([facility] [address], = [address]) [place] [address]: Pencil Sorter/Techni artemio ID = [id number] for Cortney Cohen COMPREHENSIVE METABOLIC [id number] 06:47:00 Test Item Value Reference Range Interpretation [...] S NOT APPLICABLE FOR DIALYSIS PATIEN TS. Pencil Sorter ID - [id number] 06:42:00 Test Item Value Reference Range Interpretation Comments Magnesium (test code = 1.6 mg/dL 1.5-3 59813-9) ZIA (test code = ZIA) Pencil Sorter ID - ADMIN Lab Interpretation (test Normal code = 69447-6) [facility] [id number] 06:42:00 Test Item Value Reference Range Interpretation Comments POC-GLUCOSE METER 101 mg/dL 70-110 : TESTED A T [facility] [address] (BEAKER) (test code [address], = 1538) [facility] [address]: Pencil Sorter/Techni artemio ID = [id number] for Anne Busby [id number] 06:42:00 Test Item Value Reference Range Interpretation Comments MAGNESIUM (BEAKER) (test code = 1.6 mg/dL 1.5-3.0 627) Pencil Sorter ID - ADMINCBC W/PLT COUNT & AUTO [id number] 06:37:00 Test Item Value Reference Range Interpretation [...] PERCENT (BEAKER) (test code = 2801) POCT-GLUCOSE [id number] 20:24:00 Test Item Value Reference Range Interpretation Comments POC-GLUCOSE METER 155 mg/dL 70-110 H : TESTED A T [facility] [address] (ROBERT) (test code [address], = 1538) [facility] 77 [address]: Pencil Sorter/Techni artemio ID = [id number] for Anne Busby POCT-GLUCOSE [id number] 16:39:00 Test Item Value Reference Range Interpretation Comments POC-GLUCOSE METER 164 mg/dL 70-110 H : Notified RN/MD: TESTED (ROBERT) (test code AT [address] [address], [facility] [place] [address]: Pencil Sorter/Techni artemio ID = [id number] for Alondra Kelley SARS-CoV2/RT-PCR (Asymptomatic ONLY)2019-12-30 15:57:00 Test Item Value Reference Range Interpretation Comments SARS-COV2/RT-PCR Negative Not Detected, (test code = Negative, See 60318-7) external report for linked test SARS-COV-2 [facility] (test code = 48907-3) ZIA (test code = Negative result for [...] of the Act. Fact Sheet for Healthcare Providers:https://www.[employer]/sites/default/f loco/product/documents/F act_Sheet_HC_Providers_L vgh_GHVY-MeL-5.pdf Fact Sheet for Healthcare Patients:https://www.protected-networks.com/sites/default/fi les/product/documents/Fa ct_Sheet_Patients_Lyra_S ARS-CoV-2.pdf Performing Laboratory:[facility], [place] [address] [place], [place] [address]ARS-COV2/RT-PCR ([facility])2019-12-30 15:57:00 Test Item Value Reference Range Interpretation Comments SARS-COV2/RT-PCR (test Negative Not Detected, Negative, code = 2945641) See external report for linked test SARS-COV-[address] [facility] (test code = 8900689) Negative result for this test determines that [...] 564(g) of the Act.Fact Sheet for Healthcare Providers:https://www.[employer]/sites/default/files/product/documents/Fact_Shee e_IW_Zfdjsvmqe_Ngoz_XRIJ-UyK-0.pdfFact Sheet for Healthcare Patients:https://www.[employer]/sites/default/files/product/ documents/Ecbi_Czjjp_Gqcpcndg_Vrtr_MZPA-GgI-1.pdfPerforming Laboratory:[place] [address], [place] [address]TKQB-[id number] METER 2019-12-30 11:50:00 Test Item Value Reference Range Interpretation Comments POC-GLUCOSE METER 82 mg/dL 70-110 : Notified RN/MD: TESTED (SERVANDOAKER) (test code = AT [facility] [address] [place] [address] 153) [facility] [address]: Pencil Sorter/Techni artemio ID = [id number] for Alondra Kelley WOUND CULTURE + GRAM [id number] 10:45:00 Test Item Value Reference Interpretation Comments [...] gram negative (BEAKER) (test code rods = 927969) POCT-GLUCOSE [id number] 05:50:00 Test Item Value Reference Range Interpretation Comments POC-GLUCOSE METER 103 mg/dL 70-110 : Notified RN/MD: TESTED (BEAKER) (test code AT [facility] [address] = 1538) [facility] [place] [address]: Pencil Sorter/Techni artemio ID = [id number] for Zonia Healy COMPREHENSIVE METABOLIC [id number] 05:44:00 Test Item Value Reference Range Interpretation [...] S NOT APPLICABLE FOR DIALYSIS PATIEN TS. Pencil Sorter ID - ADMINCBC W/PLT COUNT & AUTO [id number] 05:29:00 Test Item Value Reference Range Interpretation [...] PERCENT (BEAKER) (test code = 2801) POCT-GLUCOSE [id number] 21:21:00 Test Item Value Reference Range Interpretation Comments POC-GLUCOSE METER 185 mg/dL 70-110 H : Notified RN/MD: TESTED (BEAKER) (test code AT [facility] [address] = 1538) [facility] [address]: Pencil Sorter/Techni artemio ID = [id number] for Zonia Healy POCT-GLUCOSE [id number] 11:21:00 Test Item Value Reference Range Interpretation Comments POC-GLUCOSE METER 143 mg/dL 70-110 H : Notified RN/MD: TESTED (BEAKER) (test code AT [facility] [address] = 1538) [facility] [address]: Pencil Sorter/Techni artemio ID = [id number] for Alondra Kelley COMPREHENSIVE METABOLIC [id number] 06:27:00 Test Item Value Reference Range Interpretation [...] S NOT APPLICABLE FOR DIALYSIS PATIEN TS. Pencil Sorter ID - ADMINPOCT-GLUCOSE [id number] 06:21:00 Test Item Value Reference Range Interpretation Comments POC-GLUCOSE METER 73 mg/dL 70-110 : Notified RN/MD: TESTED (BEAKER) (test code = AT [address] [address] 15[address]) [facility] [address]: Pencil Sorter/Techni artemio ID = [id number] for Zonia Healy CBC W/PLT COUNT & AUTO [id number] 06:00:00 Test Item Value Reference Range Interpretation [...] PERCENT (BEAKER) (test code = 2801) POCT-GLUCOSE [id number] 20:48:00 Test Item Value Reference Range Interpretation Comments POC-GLUCOSE METER 84 mg/dL 70-110 : Notified RN[facility]MD: [facility] (test code = AT [address]) [place] [address]: Pencil Sorter/Techni artemio ID = [id number] for Zonia Healy POCT-GLUCOSE [id number] 17:51:00 Test Item Value Reference Range Interpretation Comments POC-GLUCOSE METER 59 mg/dL 70-110 L : TESTED A T [facility] [address] (BEAKER) (test code = [address] [facility], 153) [place] [address]: Pencil Sorter/Techni artemio ID = [id number] for Christina r, Berta POCT-GLUCOSE [id number] 13:28:00 Test Item Value Reference Range Interpretation Comments POC-GLUCOSE METER 67 mg/dL 70-110 L : TESTED A T [facility] [address] (BEAKER) (test code = [address] [facility] [facility], 153) [place] [address]: Pencil Sorter/Techni artemio ID = [id number] for Christina r, Berta POCT-GLUCOSE [id number] 06:04:00 Test Item Value Reference Range Interpretation Comments POC-GLUCOSE METER 94 mg/dL 70-110 : TESTED A T [facility] [address] (BEAKER) (test code = [address] [facility], 153) [place] [address]: Pencil Sorter/Techni artemio ID = [id number] for Anahi Sherman COMPREHENSIVE METABOLIC [id number] 05:35:00 Test Item Value Reference Range Interpretation [...] S NOT APPLICABLE FOR DIALYSIS PATIEN TS. Pencil Sorter ID - ADMINCBC W/PLT COUNT & AUTO [id number] 04:56:00 Test Item Value Reference Range Interpretation [...] PERCENT (BEAKER) (test code = 2801) POCT-GLUCOSE [id number] 20:43:00 Test Item Value Reference Range Interpretation Comments POC-GLUCOSE METER 137 mg/dL 70-110 H : TESTED A T [facility] [address] (BEAKER) (test code [address] [facility] [address], = 1538) [facility] [address]: Pencil Sorter/Techni artemio ID = [id number] for Anahi Sherman MR, EXTREMITY, LOWER, WITHOUT CONTRAST, [id number] 16:55:00MRI LEFT FOOT.Unlisted Reason for Exam - [...] MDReport Verified Date/Time: 12/27/2019 16:55:07 Reading Location: [facility] Radiology Reading Room MR lower extremity without IV contrast left [id number] 16:55:00Interface, External Ris In - 12/27/2019 4:57 [...] the first metatarsal remnant. Signed: Lynda Ring Verified Date/Time: 12/27/2019 16:55:07 Reading Location: [facility] Radiology Reading Room Electronically signed by: Adrienne CHU 12/27/2019 04:55 [facility] [id number] 14:19:00 Test Item Value Reference Range Interpretation Comments POC-GLUCOSE METER 232 mg/dL 70-110 H : TESTED A T [facility] 13[facility] (ROBERT) (test code [address], = 1538) [facility] [address]: Pencil Sorter/Techni artemio ID = [id number] for Christina osborne Berta CT, CTA AAA, W/ GÓMEZ.EXT.HNZMYJ0277-02-43 11:38:00Bilateral lower extremities Addendum BeginsREPORT STATUS:A I agree with the nonvascular findings with exceptions and emphasis as below:*Moderate right and small left pleural effusions are partially visualized.*Large volume ascites.*Diffuse anasarca*The reflux of contrast into the hepatic veins is concerning for volume overload. Signed: Molly Linares MDReport Verified Date/Time: 12/27/2019 11:38:28 Reading Location: [facility] Diagnostic Imaging Reading Room - [place] [address] [address] angiography of the abdominal aorta and runoff, 26-Dec-19 INDICATION: This is a 64 year old female with with lower leg penetrating trauma presents for assessment. TECHNIQUE: Spiral acquisition before and during intravenous contrast administration using a HTP multidetector CT scanner. Images were obtained before [...] identified. However, significant calcification identified of the [place] left SFA, for example at image 516, [...] the right popliteal artery is patent, with dktz-xz-eycyhaox diffuse calcification identified with no obstructive lesion [...] However, in the distal left SFA, the [place] artery substantial calcification identified and the stent [...] atherosclerosis identified. 4. In the right, the [place] right SFA is not filled by contrast [...] dictated regarding the non-vascular findings by the Cna Pct Radiologist. Signed: Shlomo Dockery MDReport Verified Date/Time: 12/27/2019 07:59:51 Reading Location: [place] [address] CT Reading Room Protein electrophoresis, serum 2019-12-27 [...] = 2660) ZIA (test code = ZIA) Pencil Sorter ID - LEONIE Jay Lab Interpretation (test Abnormal code = 21021-5) [facility] Center[facility]OTE[facility] ELECTROPHORESIS, [id number] 09:29:00 Test Item Value Reference Range Interpretation [...] chronic inflammatory response. No monoclonal bands detected. [id number] Rocio Galindo MD (BEAKER) (test code = (electronic signature) 2616) PROTEIN TOTAL SERUM, 6.3 gm/dL 6.0-8.3 SPEP (BEAKER) (test code = 2660) Pencil Sorter ID - LEONIE FCTA AAA and [id number] 07:59:00Interface, External Ris In - 12/27/2019 11:40 AM CDTAddendum BeginsREPORT STATUS:A I agree with the nonvascular findings with exceptions and emphasis as below:*Moderate right andsmall left pleural effusions are partially visualized.*Large volume ascites.*Diffuse anasarca*The reflux of contrast into the hepatic veins is concerning for volume overload. Signed: Molly Linares MDReport Verified Date/Time: 12/27/2019 11:38:28 Reading Location: [facility] Diagnostic Imaging Reading Room - [place] [address] [address] angiography of the [...] dose to as low as reasonably achievable. FIN DINGS: VASCULAR: A central venous catheter is partially [...] identified. However, significant calcification identified of the [place] left SFA, for example at image 516, [...] the right popliteal artery is patent, with omia-of-bqfykfhg diffuse calcification identified with no obstructive lesion [...] However, in the distal left SFA, the [place] artery substantial calcification identified and the stent [...] atherosclerosis identified. 4. In the right, the [place] right SFA is not filled by contrast [...] dictated regarding the non-vascular findings by the Cna Pct Radiologist. Signed: Shlomo Dockery Verified Date/Time: 12/27/2019 07:59:51 Reading Location: [place] [id number] CT Reading [facility] [id number] 06:56:00 Test Item Value Reference Range Interpretation Comments POC-GLUCOSE METER 39 mg/dL 70-110 LL : Notified RN/MD: TESTED (BEAKER) (test code = AT [facility] L [address] 15[address]) JAYNAJoe [facility] [address]: Pencil Sorter/Techni artemio ID = [id number] for Anahi Sherman COMPREHENSIVE METABOLIC [id number] 06:15:00 Test Item Value Reference Range Interpretation [...] S NOT APPLICABLE FOR DIALYSIS PATIEN TS. Pencil Sorter ID - ADMINPOCT-GLUCOSE [id number] 06:01:00 Test Item Value Reference Range Interpretation Comments POC-GLUCOSE METER 55 mg/dL 70-110 L : Notified RN/MD: TESTED (BEAKER) (test code = AT [address]LS L [address]) [address] [facility] [place] [address]: Pencil Sorter/Techni artemio ID = [id number] for Anahi Sherman CBC W/PLT COUNT & AUTO [id number] 05:44:00 Test Item Value Reference Range Interpretation [...] PERCENT (BEAKER) (test code = 2801) POCT-GLUCOSE [id number] 21:03:00 Test Item Value Reference Range Interpretation Comments POC-GLUCOSE METER 278 mg/dL 70-110 H : Notified RN/MD: TESTED (BEAKER) (test code AT [facility] [address] = 1538) [place] [address]: Pencil Sorter/Techni artemio ID = [id number] for Anahi Sherman POCT-GLUCOSE [id number] 16:53:00 Test Item Value Reference Range Interpretation Comments POC-GLUCOSE METER 70 mg/dL 70-110 : TESTED A T [facility] (test code = [address] [facility], 153) [place] [address]: Pencil Sorter/Techni artemio ID = [id number] for Akhil hurtado, Nalini POCT-GLUCOSE [id number] 12:11:00 Test Item Value Reference Range Interpretation Comments POC-GLUCOSE METER 97 mg/dL 70-110 : [facility] (BEAKER[facility] (test code = [address] [facility], 153) [place] [address]: Pencil Sorter/Techni artemio ID = [id number] for Akhil rs, Rachelleea POCT-GLUCOSE [id number] 06:21:00 Test Item Value Reference Range Interpretation Comments POC-GLUCOSE METER 71 mg/dL 70-110 : [facility] (BEAKER) (test code = [address], [address]) [facility] [address]: Pencil Sorter/Techni artemio ID = [id number] for Holly Alamo COMPREHENSIVE METABOLIC [id number] 05:50:00 Test Item Value Reference Range Interpretation Comments TOTAL PROTEIN 6.1 gm/dL 6.0-8.5 (BEAKER) (test code = 770) ALBUMIN (BEAKER) 2.3 g/dL 3.5-5.0 L (test code = 1145) ALKALINE PHOSPHATASE 64 U/L 30-115 (BEAKER) (test code = 346) [...] S NOT APPLICABLE FOR DIALYSIS PATIEN TS. Pencil Sorter ID - ADMINCBC W/PLT COUNT & AUTO [id number] 05:17:00 Test Item Value Reference Range Interpretation [...] (BEAKER) (test code = 2801) Prepare Leuko-Red [id number] 23:54:00 Test Item Value Reference Range Interpretation Comments CROSSMATCH (test code = 2264) COMPATIBLE Unit ABO (test code = O Pos 1340040) UNIT NUMBER (test code = [id number] 934-0) Status (test code = 5332171) [facility] Blood Bank Product (test code RED BLOOD CELLS = 2263) PRODUCT CODE (test code = E5070T80 933-2) [facility] CenterPO[facility] [id number] 21:03:00 Test Item Value Reference Range Interpretation Comments POC-GLUCOSE METER 87 mg/dL 70-110 : TESTED A T [facility] [address] (BEAKER) (test code = [address], [address]) [place] [address]: Pencil Sorter/Techni artemio ID = [id number] for Harish guallpa, Holly POCT-GLUCOSE [id number] 17:12:00 Test Item Value Reference Range Interpretation Comments POC-GLUCOSE METER 79 mg/dL 70-110 : TESTED A T [facility] [address] (BEAKER) (test code = [address], [address]) [place] [address]: Pencil Sorter/Techni artemio ID = [id number] for Nalini Jean Baptiste POCT-GLUCOSE [id number] 11:37:00 Test Item Value Reference Range Interpretation Comments POC-GLUCOSE METER 262 mg/dL 70-110 H : TESTED A T [facility] [address] (BEAKER) (test code [address], = 1538) [place] [address]: Pencil Sorter/Techni artemio ID = [id number] for Akhil rsNalini COMPREHENSIVE METABOLIC [id number] 06:29:00 Test Item Value Reference Range Interpretation [...] S NOT APPLICABLE FOR DIALYSIS PATIEN TS. Pencil Sorter ID - ADMINCBC W/PLT COUNT & AUTO [id number] 06:12:00 Test Item Value Reference Range Interpretation [...] PERCENT (BEAKER) (test code = 2801) POCT-GLUCOSE [id number] 06:09:00 Test Item Value Reference Range Interpretation Comments POC-GLUCOSE METER 83 mg/dL 70-110 : Notified RN/MD: TESTED (BEAKER) (test code = AT [facility] L [address]) [place] [address]: Pencil Sorter/Techni artemio ID = [id number] for Anahi Sherman POCT-GLUCOSE [id number] 16:26:00 Test Item Value Reference Range Interpretation Comments POC-GLUCOSE METER 182 mg/dL 70-110 H : Notified RN/MD: TESTED (BEAKER) (test code AT [facility] [address] = 1538) [place] [address]: Pencil Sorter/Techni artemio ID = [id number] for Alondra Kelley, [id number] 09:17:00 Test Item Value Reference Range Interpretation Comments Rh Factor (test code = POS 2589) ABO Grouping (test code O PINK TOP 12/24/19 @ 0824 = 2588) [facility] CenterType and screen, [id number] 07:31:00 Test Item Value Reference Range Interpretation Comments ABO/RH AUTOMATED (BEAKER) (test O POSITIVE ECHO code = 2260) Ab Scrn (test code = 890-4) NEGATIVE ECHO [facility] CenterCOMPREHENSIVE METABOLIC [id number] 06:42:00 Test Item Value Reference Range Interpretation [...] S NOT APPLICABLE FOR DIALYSIS PATIEN TS. Pencil Sorter ID - ADMINPOCT-GLUCOSE [id number] 06:23:00 Test Item Value Reference Range Interpretation Comments POC-GLUCOSE METER 88 mg/dL 70-110 : TESTED A T [facility] [address] (BEAKER) (test code = [address], 1538) [facility] [address]: Pencil Sorter/Techni artemio ID = [id number] for Anne Busby CBC W/PLT COUNT & AUTO [id number] 06:23:00 Test Item Value Reference Range Interpretation [...] PERCENT (BEAKER) (test code = 2801) POCT-GLUCOSE [id number] 21:38:00 Test Item Value Reference Range Interpretation Comments POC-GLUCOSE METER 126 mg/dL 70-110 H : TESTED A T [facility] 1317 (BEAKER) (test code [address] [facility] NT [facility], = 1538) [facility] [address]: Pencil Sorter/Techni artemio ID = [id number] for Anne Busby POCT-GLUCOSE [id number] 16:54:00 Test Item Value Reference Range Interpretation Comments POC-GLUCOSE METER 89 mg/dL 70-110 : Notified RN/MD: TESTED (BEAKER) (test code = AT [address] [address]) [facility], [facility] [address]: Pencil Sorter/Techni artemio ID = [id number] for Alondra Kelley MR, EXTREMITY, LOWER, JOINT, WITHOUT CONTRAST, [id number] 16:10:00Unlisted Reason for Exam - Click Yes [...] drainable collection is identified. Signed: Margot Jordan Verified Date/Time: 12/23/2019 16:10:32 Reading Location: [address] Ortho Consult Reading Room MR lower extremity joint only without IV contrast left [id number] 16:10:00Interface, External Ris In - 12/23/2019 4:12 [...] drainable collection is identified. Signed: Margot Jordan Verified Date/Time: 12/23/2019 16:10:32 Reading Location: [facility] C013X Ortho Consult Reading Room [facility], [facility]RA[facility], WITHOUT [id number] 15:43:00Unlisted Reason for Exam - Click Yes [...] IMPRESSION:No acute intracranial abnormality. Signed: Berta Muniz Verified Date/Time: 12/23/2019 15:43:24 MR brain without IV [id number] 15:43:00Interface, External Ris In - 12/23/2019 3:45 [...] IMPRESSION:No acute intracranial abnormality. Signed: Berta Muniz Verified Date/Time: 12/23/2019 15:43:24 [facility] MedicineARS-COV2/RT-PCR ([facility])2019-12-23 14:16:00 Test Item Value Reference Range Interpretation Comments SARS-COV2/RT-PCR (test Negative Not Detected, Negative, code = 7922307) See external report for linked test SARS-COV-[address] [facility] (test code = 9493909) Negative result for this test determines that [...] 564(g) of the Act.Fact Sheet for Healthcare Providers:https://www.GetPromotdidel.com/sites/default/files/product/documents/Fact_Shee x_MU_Qwsrgajuc_Jnxo_XXFW-KpK-1.pdfFact Sheet for Healthcare Patients:https://www.GetPromotdidel.com/sites/default/files/product/ documents/Niup_Mflqy_Hipsnafj_Ucgu_OBDB-BiB-2.pdfPerforming Laboratory:[facility], [place] [address]Suwrw / lambda light chains, [id number] 12:25:00 Test Item Value Reference Interpretation Comments Range [place] Lt Chain,Free 474.4 mg/L 3.3-19.4 H (test code = 78057-9) Lambda Lt 225.6 mg/L 5.7-26.3 H Chain,Free (test code = 03787-0) [place]/Lambda,Free 2.1 0.26-1.65 H Free annabelle a/lambda (test code = ratio in serum of 20190629) normal individu als is 0.26-1.65. Excessproductio n [...] (test code = Performing Lab ZIA) [facility] [employer] [facility] [address] [place] [address] Jaguar Stein MD, PhD, CORI Lab Interpretation Abnormal (test code = 85020-0) [facility] CenterPOCT-GLUCOSE [id number] 11:27:00 Test Item Value Reference Range Interpretation Comments POC-GLUCOSE METER 189 mg/dL 70-110 H : Notified RN/MD: TESTED (SERVANDOAKER) (test code AT [facility] [address] [place] [address] = [address]) [facility] [address]: Pencil Sorter/Techni artemio ID = [id number] for a julio, Alondra ARTERIAL DOPPLER LEGS, [id number] 11:22:00Reason for exam:->non healing ulcer , non [...] Monahaneport Verified Date/Time: 12/23/2019 11:22:31 Reading Location: [facility] Radiology Reading Room Arterial Doppler Legs [id number] 11:22:00 Interface, External Ris In - 12/23/2019 [...] peripheral arterial disease. Signed: Luis Alberto Monahan MDRtieraort Verified Date/Time: 12/23/2019 11:22:31 Reading Location: [facility] Radiology Reading Room [facility] CenterCOMPREHENSIVE METABOLIC [id number] 04:44:00 Test Item Value Reference Range Interpretation [...] S NOT APPLICABLE FOR DIALYSIS PATIEN TS. Pencil Sorter ID - ADMINCBC W/PLT COUNT & AUTO [id number] 04:35:00 Test Item Value Reference Range Interpretation [...] H PERCENT (BEAKER) (test code = 2801) [id number] 04:29:00 Test Item Value Reference Range Interpretation Comments Ammonia (test code = 36 17- 80 mol/L 83006-8) ZIA (test code = ZIA) Pencil Sorter ID - ADMIN Lab Interpretation (test Normal code = 79495-2) [facility] CenterAMMONIA2020-09-24 04:29:00 Test Item Value Reference Range Interpretation Comments AMMONIA (BEAKER) (test code = 348) 36 mol/L 17-80 Pencil Sorter ID - ADMINPOCT-GLUCOSE [id number] 20:45:00 Test Item Value Reference Range Interpretation Comments POC-GLUCOSE METER 95 mg/dL 70-110 : TESTED A T [facility] [address] (BEAKER) (test code = [address], 1538) [place] [address]: Pencil Sorter/Techni artemio ID = [id number] for Anne Busby POCT-GLUCOSE [id number] 17:08:00 Test Item Value Reference Range Interpretation Comments POC-GLUCOSE METER 107 mg/dL 70-110 : TESTED A T [facility] [address]17 (BEAKER) (test code [address], = 1538) [place] [address]: Pencil Sorter/Techni artemio ID = [id number] for Jordyn Fonseca POCT-GLUCOSE [id number] 11:55:00 Test Item Value Reference Range Interpretation Comments POC-GLUCOSE METER 135 mg/dL 70-110 H : TESTED A T [facility] [address]17 (BEAKER) (test code [address], = 1538) [place] [address]: Pencil Sorter/Techni artemio ID = [id number] for Jordyn Fonseca Anti-Nuclear Antibody (ROGER)2019-12-22 11:40:00 Test Item Value Reference Range Interpretation Comments ROGER (test code = 29523-7) Positive Negative A ZIA (test code = ZIA) Test performed by IFA method. Lab Interpretation (test Abnormal code = 98026-6) [facility] CenterANA Titer & [id number] 11:40:00 Test Item Value Reference Range Interpretation Comments ROGER Titer (test code = 33820-4) 1:40 ROGER Pattern (test code = 1781) Speckled [facility] CenterANTI-NUCLEAR ANTIBODY (ROGER)2019-12-22 11:40:00 Test Item Value Reference Range Interpretation Comments ANTI-NUCLEAR ANTIBODY (ROGER) (BEAKER) Positive Negative A (test code = 418) Test performed by IFA method.ROGER TITER AND [id number] 11:40:00 Test Item Value Reference Range Interpretation Comments ROGER TITER (BEAKER) (test code = :40 1541) ROGER PATTERN (BEAKER) (test code = Speckled 1781) POCT-GLUCOSE [id number] 06:44:00 Test Item Value Reference Range Interpretation Comments POC-GLUCOSE METER 92 mg/dL 70-110 : TESTED A T [facility] [address] (BEAKER) (test code = [address], 1538) [facility] [place] [address]: Pencil Sorter/Techni artemio ID = [id number] for Anne Busby COMPREHENSIVE METABOLIC [id number] 06:35:00 Test Item Value Reference Range Interpretation [...] S NOT APPLICABLE FOR DIALYSIS PATIEN TS. Pencil Sorter ID - ADMINCBC W/PLT COUNT & AUTO [id number] 06:16:00 Test Item Value Reference Range Interpretation [...] PERCENT (BEAKER) (test code = 2801) POCT-GLUCOSE [id number] 20:38:00 Test Item Value Reference Range Interpretation Comments POC-GLUCOSE METER 85 mg/dL 70-110 : TESTED A T [facility] [address]17 (BEAKER) (test code = [address], 1538) [place] [address]: Pencil Sorter/Techni artemio ID = [id number] for Anne Busby POCT-GLUCOSE [id number] 18:14:00 Test Item Value Reference Range Interpretation Comments POC-GLUCOSE METER 112 mg/dL 70-110 H : TESTED A T [facility] [address] (BEAKER) (test code [address], = 1538) [place] [address]: Pencil Sorter/Techni artemio ID = [id number] for Christina r, Berta POCT-GLUCOSE [id number] 13:00:00 Test Item Value Reference Range Interpretation Comments POC-GLUCOSE METER 77 mg/dL 70-110 : TESTED A T [facility] [address]17 (BEAKER) (test code = [address], 1538) [place] [address]: Pencil Sorter/Techni artemio ID = [id number] for Christina r, Berta POCT-GLUCOSE [id number] 07:32:00 Test Item Value Reference Range Interpretation Comments POC-GLUCOSE METER 60 mg/dL 70-110 L : TESTED A T [facility] [address] (BEAKER) (test code = [address], 1538) [place] [address]: Pencil Sorter/Techni artemio ID = [id number] for Marissa Page COMPREHENSIVE METABOLIC [id number] 06:11:00 Test Item Value Reference Range Interpretation [...] S NOT APPLICABLE FOR DIALYSIS PATIEN TS. Pencil Sorter ID - ADMINC-Reactive [id number] 06:06:00 Test Item Value Reference Range Interpretation Comments CRP (test code = 676) 1.63 mg/dL 0-0.5 H ZIA (test code = ZIA) Pencil Sorter ID - ADMIN Lab Interpretation (test Abnormal code = 73401-1) [facility] CenterC-REACTIVE [id number] 06:06:00 Test Item Value Reference Range Interpretation Comments C-REACTIVE PROTEIN (BEAKER) (test 1.63 mg/dL 0.00-0.50 H code = 676) Pencil Sorter ID - ADMINPOCT-GLUCOSE [id number] 06:04:00 Test Item Value Reference Range Interpretation Comments POC-GLUCOSE METER 56 mg/dL 70-110 L : Notified RN/MD: TESTED (BEAKER) (test code = AT [address], [place] [address]: Pencil Sorter/Techni artemio ID = [id number] for Nelda Abdi CBC W/PLT COUNT & AUTO [id number] 05:53:00 Test Item Value Reference Range Interpretation [...] (BEAKER) (test code = 2801) U/S, ABDOMINAL, [id number] 22:02:00Reason for exam:->thrombocytopenia / eval for hepatosplenomegalyFINAL [...] MDReport Verified Date/Time: 12/20/2019 22:02:21 US abdomen [id number] 22:02:00Interface, External Ris In - 12/20/2019 10:04 [...] Hever Marin MDReport Verified Date/Time: 12/20/2019 22:02:21 [facility] [id number] 20:36:00 Test Item Value Reference Range Interpretation Comments POC-GLUCOSE METER 74 mg/dL 70-110 : Notified RN/MD: TESTED ([employer]) (test code = AT SLS [address]) [facility] [address]: Pencil Sorter/Techni artemio ID = [id number] for Nelda Abdi POCT-GLUCOSE [id number] 17:50:00 Test Item Value Reference Range Interpretation Comments POC-GLUCOSE METER 72 mg/dL 70-110 : TESTED A T [facility] 1317 (BEAKER) (test code = [address] [facility], 1538) [facility] [address]: Pencil Sorter/Techni artemio ID = [id number] for Berta Servin CT, BRAIN, WITHOUT [id number] 16:08:00Unlisted Reason for Exam - Click Yes [...] recommended for further characterization. Signed: Berta Muniz MDReport Verified Date/Time: 12/20/2019 16:08:40 CT brain without IV [id number] 16:08:00Interface, External Ris In - 12/20/2019 4:10 [...] for further characteriz ation. Signed: Berta Muniz MDRtieraort Verified Date/Time: 12/20/2019 16:08:40 [facility]RAD, [facility], 2 VIEWS, [id number] 15:15:00Reason for exam:->Rule out osteomyelitisShould this be [...] the forefoot. Vascular calcifications. Signed: Luis Alberto Monahanort Verified Date/Time: 12/20/2019 15:15:25 Reading Location: [facility] Radiology Reading Room , FOOT, 2 VIEWS, [id number] 15:15:00Reason for exam:->Rule out osteomyelitisShould this be [...] MDReport Verified Date/Time: 12/20/2019 15:15:25 Reading Location: [facility] Radiology Reading Room XR foot 2 views [id number] 15:15:00Interface, External Ris In - 12/20/2019 3:17 [...] MDReport Verified Date/Time: 12/20/2019 15:15:25 Reading Location: [facility] Radiology Reading Room [facility] HospitalXR foot 2 views [id number] 15:15:00Interface, External Ris In - 12/20/2019 3:17 [...] the forefoot. Vascular calcifications. Signed: Luis Alberto Monahaneport Verified Date/Time: 12/20/2019 15:15:25 Reading Location: [facility] Radiology Reading Room [facility] HospitalAMMONIA2020-09-21 14:56:00 Test Item Value Reference Range Interpretation Comments AMMONIA (BEAKER) (test code = 348) 33 mol/L 17-80 Pencil Sorter ID - ADMINBlood gas, [id number] 14:41:00 Test Item Value Reference Range Interpretation Comments pH, Arterial (test code = 2744-1) 7.33 7.35-7.45 L pCO2, Arterial (test code = 58 35- 45 mmHg H 2018-8) pO2, Arterial (test code = 2703-7) 109 80- 90 mmHg H O2 Sat, Arterial (test code = 97.5 % 96-97 H 8-6) HCO3, Arterial (test code = 30 mmol/L 21-29 H 1959-) Base Excess, Arterial (test code = 2.6 mmol/L -2-3 1925-7) Patient Temperature (test code = 37.0 C 8310-5) FIO2 (test code = 1819) 32 % Lab Interpretation (test code = Abnormal 85128-2) [facility] Center[facility], [id number] 14:41:00 Test Item Value Reference Range Interpretation [...] code = 1819) 32.0 % Occult blood, [id number] 11:56:00 Test Item Value Reference Range Interpretation Comments Occult blood (test code = 2335-8) Negative Negative Lab Interpretation (test code = Normal 28829-5) [facility] CenterOCCULT BLOOD, [id number] 11:56:00 Test Item Value Reference Range Interpretation Comments FECAL OCCULT BLOOD (BEAKER) (test Negative Negative code = 618) POCT-GLUCOSE [id number] 11:39:00 Test Item Value Reference Range Interpretation Comments POC-GLUCOSE METER 88 mg/dL 70-110 : TESTED A T [facility] [address]17 (BEAKER) (test code = [address], 15[address]) [facility] [address]: Pencil Sorter/Techni artemio ID = [id number] for Gifty Phelps [id number] 11:22:00 Test Item Value Reference Range Interpretation Comments Haptoglobin (test code = <8 14-258 L 4542-7) ZIA (test code = ZIA) Pencil Sorter ID - LEONIE F Lab Interpretation (test Abnormal code = 29692-3) [facility] CenterHAPTOGLOBIN2020-09-21 11:22:00 Test Item Value Reference Range Interpretation Comments HAPTOGLOBIN (BEAKER) (test code = < mg/dL 14-258 L 366) Pencil Sorter ID - LEONIE FT4, [id number] 11:01:00 Test Item Value Reference Range Interpretation Comments Free T4 (test code = 0.52 ng/dL 0.9-1.8 L 3024-7) ZIA (test code = ZIA) Pencil Sorter ID - ADMIN Lab Interpretation (test Abnormal code = 96939-1) [facility] CenterT4, [id number] 11:01:00 Test Item Value Reference Range Interpretation Comments FREE T4 (BEAKER) (test code = 655) 0.52 ng/dL 0.90-1.80 L Pencil Sorter ID - ADMINPeripheral Blood Smear - Path [id number] 08:19:00 Test Item Value Reference Range Interpretation [...] Griffith M.D. code = 2849) (electronic signature) [facility] CenterPERIPHERAL BLOOD SMEAR - PATHOLOGIST REVIEW 2019-12-20 08:19:00 Test Item Value Reference Range Interpretation Comments RBC MORPHOLOGY Target Cells (BEAKER) (test code = 2846) RBC MORPHOLOGY Basophilic Stippling (BEAKER) (test code = 92976) RBC MORPHOLOGY Nucleated Red Blood Cells (BEAKER) (test code = 29151) PERIPHERAL SMR Normochromic normocytic REVIEW (BEAKER) anemia with a few target (test code = 2640) cells, nucleated RBCs and basophilic stippling. No increase in schistocytes. WBCs normal in number and morphology. Thrombocytopenia with normal platelet morphology. JTBC-[id number]-054 Jovita Griffith M.D. 2 (BEAKER) (test (electronic signature) code = 2849) Vitamin B12 and Knaahe4910-13-52 06:37:00 Test Item Value Reference Range Interpretation Comments Vitamin B12 (test code = 1431 pg/mL 211-911 H 2132-9) Folate (test code = 17.00 ng/mL >=5.4 2284-8) ZIA (test code = ZIA) Pencil Sorter ID - ADMIN Lab Interpretation (test Abnormal code = 58493-6) [facility] CenterVITAMIN B12 AND [id number] 06:37:00 Test Item Value Reference Range Interpretation Comments VITAMIN B12 (BEAKER) (test code = 1431 pg/mL 211-911 H 774) FOLATE (BEAKER) (test code = 362) 17.00 ng/mL >=5.4 Pencil Sorter ID - ADMINPOCT-GLUCOSE [id number] 06:32:00 Test Item Value Reference Range Interpretation Comments POC-GLUCOSE METER 79 mg/dL 70-110 : TESTED A T [facility] [address] (BEAKER) (test code = [address], 15[address]) [facility] [place] [address]: Pencil Sorter/Techni artemio ID = [id number] for Anahi Sherman Omvenpdm0782-00-80 06:25:00 Test Item Value Reference Range Interpretation Comments Ferritin (test code = 595.00 ng/mL 10-291 H 2276-4) ZIA (test code = ZIA) Pencil Sorter ID - ADMIN Lab Interpretation (test Abnormal code = 76587-8) [facility] CenterTSH/Free T4 If Oifwckkcf1096-14-55 06:25:00 Test Item Value Reference Range Interpretation Comments TSH (test code = 21.210 0.350- 5.500 uIU/mL H 87224-2) ZIA (test code = ZIA) Pencil Sorter ID - ADMIN Lab Interpretation (test Abnormal code = 58956-2) [facility] CenterFERRITIN2020-09-21 06:25:00 Test Item Value Reference Range Interpretation Comments FERRITIN (BEAKER) (test code = 595.00 ng/mL 10.00-291.00 H 361) Pencil Sorter ID - ADMINTSH/FREE T4 IF [id number] 06:25:00 Test Item Value Reference Range Interpretation Comments THYROID STIMULATING HORMONE 21.210 uIU/mL 0.350-5.500 H (BEAKER) (test code = 772) Pencil Sorter ID - KXSDGGovumcayul4808-52-77 06:06:00 Test Item Value Reference Range Interpretation Comments Fibrinogen (test code = 340 mg/dL 338-798 0371-7) ZIA (test code = ZIA) Final Information (Auto Output) Lab Interpretation (test Normal code = 98714-5) [facility] CenterPT/eSCP9982-03-78 06:06:00 Test Item Value Reference Range Interpretation Comments Protime (test code = 13.5 9.3- 12.0 sec H 5902-2) INR (test code = 1.25 <=5.90 6301-6) PTT (test code = 38.2 23.0- 35.0 sec H 82759-9) ZIA (test code = ZIA) RECOMMENDED COUMADIN/WARFARIN INR THERAPY RANGESSTANDARD DOSE: 2.0 - 3.0 Includes: PROPHYLAXIS for venous thrombosis, systemic embolization; TREATMENT for venous thrombosis and/or pulmonary embolus.HIGH RISK: Target INR is 2.5-3.5 for patients with mechanical heart valves.Final Information (Auto Output)Final Information (Auto Output)Final Information (Auto Output) Lab Interpretation Abnormal (test code = 70777-3) [facility] CenterFIBRINOGEN2020-09-21 06:06:00 Test Item Value Reference Range Interpretation Comments FIBRINOGEN LEVEL (BEAKER) (test 340 mg/dL 200-400 code = 658) Final Information (Auto Output)PT/[id number] 06:06:00 Test Item Value Reference Range Interpretation [...] = 2502-3) ZIA (test code = ZIA) Pencil Sorter ID - ADMIN Lab Interpretation (test Abnormal code = 05321-9) [facility] CenterIRON, TIBC, % SAT. (WITHOUT FERRITIN)2019-12-20 05:59:00 Test Item Value Reference Range Interpretation Comments IRON (BEAKER) (test code = 547) 92.0 ug/dL 45.0-170.0 TOTAL IRON BINDING CAPACITY 151 ug/dL 250-550 L (BEAKER) (test code = 769) IRON % SATURATION (2) (BEAKER) 61 % 20-55 H (test code = 2590) Pencil Sorter ID - ADMINCOMPREHENSIVE METABOLIC [id number] 05:55:00 Test Item Value Reference Range Interpretation [...] S NOT APPLICABLE FOR DIALYSIS PATIEN TS. Pencil Sorter ID - ZATUYF-plgwo7621-55-21 05:46:00 Test Item Value Reference Range Interpretation Comments D-Dimer, Quant (test 1.09 mg/L <0.50 H code = 14960-5) ZIA (test code = ZIA) REGARDING D-DIMER RESULTS: The 98% NPV (Negative Predictive Value) for DVT/PE exclusion is 0.50 mg/L FEU as suggested by the locum tenens psychiatrist and as approved by the FDA.Final Information (Auto Output) Lab Interpretation (test Abnormal code = 19295-0) [facility] CenterD-ZPCPJ4000-23-74 05:46:00 Test Item Value Reference Range Interpretation Comments D-DIMER QUANTITATIVE (BEAKER) (test 1.09 mg/L <0.50 H code = 671) REGARDING D-DIMER RESULTS: The 98% NPV (Negative Predictive Value) for DVT/PE exclusion is 0.50 mg/LFEU as suggested by the locum [facility] psychiatrist and as approved by the FDA.Final Information (Auto Output)Reticulocyte [id number] 05:42:00 Test Item Value Reference Range Interpretation Comments % Retic (test code = 84434-2) 5.9 % 0.4-2.9 H Lab Interpretation (test code = Abnormal 37078-7) [facility] CenterRETICULOCYTE [id number] 05:42:00 Test Item Value Reference Range Interpretation Comments RETICULOCYTE COUNT PCT (BEAKER) (test 5.9 % 0.4-2.9 H code = 575) CBC W/PLT COUNT & AUTO [id number] 05:33:00 Test Item Value Reference Range Interpretation [...] U/L 107-206 ZIA (test code = ZIA) Pencil Sorter ID - ADMIN Lab Interpretation (test Normal code = 99790-2) [facility] CenterLACTATE DEHYDROGENASE (LDH)2019-12-19 21:19:00 Test Item Value Reference Range Interpretation Comments LACTATE DEHYDROGENASE (BEAKER) (test 178 U/L 107-206 code = 635) Pencil Sorter ID - ADMINPOCT-GLUCOSE [id number] 20:47:00 Test Item Value Reference Range Interpretation Comments POC-GLUCOSE METER 102 mg/dL 70-110 : TESTED A T SLSL 1317 (BEAKER) (test code [facility] [address], = 1538) [facility] [address]: Pencil Sorter/Techni artemio ID = [id number] for Anahi Sherman POCT-GLUCOSE [id number] 16:18:00 Test Item Value Reference Range Interpretation Comments POC-GLUCOSE METER 96 mg/dL 70-110 : TESTED A T SLSL 1317 (BEAKER) (test code = [address], 1538) [facility] [place] [address]: Pencil Sorter/Techni artemio ID = [id number] for Nalini Jean Baptiste Basic Metabolic Vnoak5555-03-24 06:26:00 Test Item Value Reference Range Interpretation Comments Sodium (test code = 138 meq/L 562-636 2212-2) Potassium (test code = 3.9 meq/L 3.6-5.5 2823-3) Chloride (test code = 99 meq/L 98-106 2075-0) CO2 (test code = 30 meq/L 20-29 H 2028-9) BUN (test code = 47 mg/dL 10-26 H 3094-0) Creatinine (test code 3.04 mg/dL 0.5-1.2 H = 2160-0) Glucose (test code = 82 mg/dL 70-110 2345-7) Calcium (test code = 7.9 mg/dL 8.5-10.5 L 21054-1) EGFR (test code = 15 mL/min/1.73 [place] [address]-5) NOT ACCURATE CREATININE CLEARANCE IN PREDICTING GLOMERULAR FILTRATION RATE . ESTIMATED GFR I S NOT APPLICABLE FOR DIALYSIS PATIENTS. ZIA (test code = ZIA) Pencil Sorter ID - ADMIN Lab Interpretation Abnormal (test code = 95978-8) [facility] METABOLIC [id number] 06:26:00 Test Item Value Reference Range Interpretation [...] S NOT APPLICABLE FOR DIALYSIS PATIEN TS. Pencil Sorter ID - ADMINCBC W/PLT COUNT & AUTO [id number] 06:04:00 Test Item Value Reference Range Interpretation [...] PERCENT (BEAKER) (test code = 2801) POCT-GLUCOSE [id number] 05:35:00 Test Item Value Reference Range Interpretation Comments POC-GLUCOSE METER 85 mg/dL 70-110 : Notified RN/MD: [facility] (test code = AT [facility] L [address]) [place] [address]: Pencil Sorter/Techni artemio ID = [id number] for Keen , Zonia POCT-GLUCOSE [id number] 21:46:00 Test Item Value Reference Range Interpretation Comments POC-GLUCOSE METER 125 mg/dL 70-110 H : Notified RN/MD: TESTED ([facility]) [facility] [address] = 1538) [place] [address]: Pencil Sorter/Techni artemio ID = [id number] for Keen , Zonia POCT-GLUCOSE [id number] 16:17:00 Test Item Value Reference Range Interpretation Comments POC-GLUCOSE METER 103 mg/dL 70-110 : [facility] (BE[facility]ER) (test code [address] [facility], = 1538) [place] [address]: Pencil Sorter/Techni artemio ID = [id number] for Akhil rs, Shelea POCT-GLUCOSE [id number] 07:56:00 Test Item Value Reference Range Interpretation Comments POC-GLUCOSE METER 111 mg/dL 70-110 H : TESTED A T [facility]SL 1317 (BEAKER) (test code [facility], = 1538) [place] [address]: Pencil Sorter/Techni artemio ID = [id number] for Akhil rs, Shelea POCT-GLUCOSE [id number] 06:25:00 Test Item Value Reference Range Interpretation Comments POC-GLUCOSE METER 57 mg/dL 70-110 L : TESTED A T [facility] [address]17 (BEAKER) (test code = [address], [address]) [place] [address]: Pencil Sorter/Techni artemio ID = [id number] for Damian Busbyen POCT-GLUCOSE [id number] 21:55:00 Test Item Value Reference Range Interpretation Comments POC-GLUCOSE METER 76 mg/dL 70-110 : TESTED A T [facility] [address]17 (BEAKER) (test code = [address], 15[address]) [place] [address]: Pencil Sorter/Techni artemio ID = [id number] for Ashley n, Anne POCT-GLUCOSE [id number] 18:03:00 Test Item Value Reference Range Interpretation Comments POC-GLUCOSE METER 81 mg/dL 70-110 : TESTED A T [address] [address]17 (BEAKER) (test code = [address], 1538) [place] [address]: Pencil Sorter/Techni artemio ID = [id number] for Ericka Daniel POCT-GLUCOSE [id number] 12:33:00 Test Item Value Reference Range Interpretation Comments POC-GLUCOSE METER 73 mg/dL 70-110 : TESTED A T [address] (BEAKER) (test code = [address], 1538) [place] [address]: Pencil Sorter/Techni artemio ID = [id number] for Marisela Bolton Hepatitis B surface qyzdxwpi1539-03-01 10:49:00 Test Item Value Reference Range Interpretation Comments Hep B S Ab (test code = <8.0 <8.0 mIU/mL 52411-2) ZIA (test code = ZIA) Pencil Sorter ID - LEONIE F Lab Interpretation (test Normal code = 56615-4) [facility] CenterHEPATITIS B SURFACE [id number] 10:49:00 Test Item Value Reference Range Interpretation Comments HEPATITIS B SURFACE ANTIBODY < mIU/mL <8.0 (BEAKER) (test code = 647) Pencil Sorter ID - LEONIE FHepatitis B core antibody, [id number] 10:43:00 Test Item Value Reference Range Interpretation Comments Hep B Core Total Ab Nonreactive Nonreactive (test code = 44145-1) ZIA (test code = ZIA) Pencil Sorter ID - LEONIE Jay Lab Interpretation (test Normal code = 01348-8) [facility] C [id number] 10:43:00 Test Item Value Reference Range Interpretation Comments Hepatitis C Ab (test Nonreactive Nonreactive code = 18646-1) ZIA (test code = ZIA) Pencil Sorter ID Bijal Jay Lab Interpretation (test Normal code = 24375-1) [facility] C [id number] 10:43:00 Test Item Value Reference Range Interpretation Comments HEPATITIS C ANTIBODY (BEAKER) Nonreactive Nonreactive (test code = 367) Pencil Sorter ID - LEONIE FHEPATITIS B CORE ANTIBODY, [id number] 10:43:00 Test Item Value Reference Range Interpretation Comments HEPATITIS B CORE TOTAL ANTIBODY Nonreactive Nonreactive (BEAKER) (test code = 497) Pencil Sorter ID Bijal HADLEY FPOCT-GLUCOSE [id number] 06:31:00 Test Item Value Reference Range Interpretation Comments POC-GLUCOSE METER 67 mg/dL 70-110 L : TESTED A T [facility] 1317 (BEAKER) (test code = [address], 1538) [facility] [address]: Pencil Sorter/Techni artemio ID = [id number] for Anne Busby COMPREHENSIVE METABOLIC [id number] 05:10:00 Test Item Value Reference Range Interpretation [...] S NOT APPLICABLE FOR DIALYSIS PATIEN TS. Pencil Sorter ID - ADMINCBC W/PLT COUNT & AUTO [id number] 04:36:00 Test Item Value Reference Range Interpretation [...] PERCENT (BEAKER) (test code = 2801) POCT-GLUCOSE [id number] 21:14:00 Test Item Value Reference Range Interpretation Comments POC-GLUCOSE METER 79 mg/dL 70-110 : TESTED A T [facility]SL [address]17 (BEAKER) (test code = [address] [facility], 1538) [facility] [address]: Pencil Sorter/Techni artemio ID = [id number] for Anne Busby POCT-GLUCOSE [id number] 18:35:00 Test Item Value Reference Range Interpretation Comments POC-GLUCOSE METER 68 mg/dL 70-110 L : Notified RN/MD: TESTED (BEAKER) (test code = AT SLS L [address]17 [facility] 1538) [facility] [address]: Pencil Sorter/Techni artemio ID = [id number] for romero Ingrid kimberly SARS-COV2/RT-PCR ([facility])2019-12-16 17:53:00 Test Item Value Reference Range Interpretation Comments SARS-COV2/RT-PCR (test Negative Not Detected, Negative, code = 5135161) See external report for linked test SARS-COV-[address] [facility] JANTE (test code = 2435552) Negative result for this test determines that [...] 564(g) of the Act.Fact Sheet for Healthcare Providers:https://www.GetPromotdidel.com/sites/default/files/product/documents/Fact_Shee w_NG_Ialevzhbt_Dvrc_TQKR-NcB-1.pdfFact Sheet for Healthcare Patients:https://www.[employer].com/sites/default/files/product/ documents/Djls_Nahsq_Toacufnx_Snqs_EETK-FeV-2.pdfPerforming Laboratory:[facility], [place] [address]Kemylujkm B surface dudompo9298-75-61 16:57:00 Test Item Value Reference Range Interpretation Comments HBsAg Screen (test code = Nonreactive Nonreactive 5195-3) ZIA (test code = ZIA) Pencil Sorter ID - ADMIN Lab Interpretation (test Normal code = 42340-1) [facility] CenterHEPATITIS B SURFACE [id number] 16:57:00 Test Item Value Reference Range Interpretation Comments HEPATITIS B SURFACE ANTIGEN (2) Nonreactive Nonreactive (ROBERT) (test code = 2585) Pencil Sorter ID - KALA, TUNNELED CATHETER [id number] 15:06:00Reason for Central Line/PICC?->Need for hemodialysis accessReason [...] the patient's medical record by the nurse. [employer]: Soto Arias M.D. Mfg Assoc: none. Approach: Right internal jugular vein Estimated [...] needle into the right atrium. A 4 Azeri micropuncture sheath was placed and a 0.035 wire was advanced into the IVC. A subcutaneous tunnel was created in the left anterior chest wall by blunt dissection. A 23 cm tip to cuff 15.5 Azeri Duraflow 2 catheter was brought through the [...] Arias MDReport Verified Date/Time: 12/16/2019 15:06:45Reading Location: [facility] Radiology Reading Room IR Tunneled Catheter Ftjkxjtcz8764-74-01 15:06:00 Interface, External Ris In - 12/16/2019 [...] the patient's medical record by the nurse. [employer]isher: Soto Arias M.D. Ass istant: none. Approach: [...] A 23 cm tip to cuff 15.5 Azeri Duraflow 2 catheter was brought through the [...] tolerated the procedure well and [facility] the same condition. Results: Spot radiograph of the chest demonstrates the new dialysis catheter to lie in theexpected position with its tip overlying the superior right atrium. Impression: 1. Successful, uncomplicated placement of a left internal jugular tunneled dialysiscatheter using sonographic and fluoroscopic guidance and conscious sedation. Signed: Soto Arias MDReport Verified Date/Time: 12/16/2019 15:06:45 Reading Location: [facility] Radiology Reading Room [facility] [id number] 14:59:00 Test Item Value Reference Range Interpretation Comments POC-GLUCOSE METER 70 mg/dL 70-110 : Notified RN/: TESTED (SERVANDOAKER) (test code = AT [facility] L [address] [place] [address]) JAYNAJoe [facility] [address]: Pencil Sorter/Techni artemio ID = [id number] for Moshe kim Alondra POCT-GLUCOSE [id number] 11:13:00 Test Item Value Reference Range Interpretation Comments POC-GLUCOSE METER 72 mg/dL 70-110 : Notified RN/MD: TESTED (ROBERT) (test code = AT [facility] L [address]) [place] [address]: Pencil Sorter/Techni artemio ID = [id number] for Alondra Kelley RAD, CHEST, 1 VIEW, NON [id number] 09:20:00Reason for exam:->fallShould this be performed at [...] MDReport Verified Date/Time: 12/16/2019 09:20:06 Reading Location: [facility] Radiology Reading Room XR chest 1 view portable / [id number] 09:20:00Interface, External Ris In - 12/16/2019 9:22 [...] accommodation effusion/consolidation. Negative for pneumothorax. Signed: Soto Ariaseport Verified Date/Time: 12/16/2019 09:20:06 Reading Location: [facility] Radiology Reading Room Electronically yeimi d by: SOTO ARIAS MD on 12/16/2019 09:20 [facility] POCT-GLUCOSE [id number] 06:03:00 Test Item Value Reference Range Interpretation Comments POC-GLUCOSE METER 74 mg/dL 70-110 : Notified RN/MD: TESTED (BEAKER) (test code = AT [facility] [address]) [facility] [address]: Pencil Sorter/Techni artemio ID = [id number] for Zonia Healy BASIC METABOLIC [id number] 05:08:00 Test Item Value Reference Range Interpretation [...] S NOT APPLICABLE FOR DIALYSIS PATIEN TS. Pencil Sorter ID - ADMINProthrombin time/[id number] 05:01:00 Test Item Value Reference Range Interpretation [...] Output) Lab Interpretation Abnormal (test code = 75835-1) [facility] CenterPROTHROMBIN TIME/[id number] 05:01:00 Test Item Value Reference Range Interpretation [...] Information (Auto Output)CBC W/PLT COUNT & AUTO [id number] 04:46:00 Test Item Value Reference Range Interpretation [...] PERCENT (BEAKER) (test code = 2801) POCT-GLUCOSE [id number] 17:13:00 Test Item Value Reference Range Interpretation Comments POC-GLUCOSE METER 220 mg/dL 70-[address] [facility] 6720 (BEAKER) (test code = [facility] 1538) [address] BASIC METABOLIC [id number] 15:47:00 Test Item Value Reference Range Interpretation [...] NOT APPLICABLE FOR DIALYSIS PATIEN TS. POCT-GLUCOSE [id number] 11:30:00 Test Item Value Reference Range Interpretation Comments POC-GLUCOSE METER 268 mg/dL 70-[address] [facility] 6720 (BEAKER) (test code = [facility] 1538) [address] POCT-GLUCOSE [id number] 07:08:00 Test Item Value Reference Range Interpretation Comments POC-GLUCOSE METER 208 mg/dL 70-110 H TESTED AT [place] [address] ([facility]) (test code = [facility] 1538) [address] CALCIUM, [id number] 06:47:00 Test Item Value Reference Range Interpretation Comments CALCIUM IONIZED (BEAKER) (test 1.11 mmol/L 1.12-1.27 L code = 698) PH, BLOOD (BEAKER) (test code = 7.40 1810) BASIC METABOLIC [id number] 06:40:00 Test Item Value Reference Range Interpretation [...] S NOT APPLICABLE FOR DIALYSIS PATIEN TS. [id number] 06:33:00 Test Item Value Reference Range Interpretation Comments PHOSPHORUS (BEAKER) (test code = 5.1 mg/dL 2.3-4.7 H 604) [id number] 06:33:00 Test Item Value Reference Range Interpretation Comments MAGNESIUM (BEAKER) (test code = 2.0 mg/dL 1.6-2.6 627) LACTIC ACID, VENOUS, WHOLE [id number] 06:02:00 Test Item Value Reference Range Interpretation Comments LACTATE BLOOD VENOUS (2) (BEAKER) 0.8 mmol/L 0.5-2.2 (test code = 2872) Effective 08/02/2015: Units/Reference Range ChangeNew: 0.5-2.2 mmol/L Previous: 5-20 mg/dLCBC W/PLT COUNT & AUTO [id number] 05:54:00 Test Item Value Reference Range Interpretation [...] PERCENT (BEAKER) (test code = 2801) POCT-GLUCOSE [id number] 21:30:00 Test Item Value Reference Range Interpretation Comments POC-GLUCOSE METER 248 mg/dL 70-[address] [facility] 6720 (BEAKER) (test code = JULIANO Osborne [facility] 1538) [address] RAD, [id number] 21:22:00Reason for exam:->fall, tailbone painFINAL REPORT RAD, [...] acute fracture persists. Signed: Juan Francisco Connor [facility] Verified Date/Time: 09/04/2017 21:22:03 Reading Location: [address] Transitional Reading Room POCT-GLUCOSE [id number] 17:37:00 Test Item Value Reference Range Interpretation Comments POC-GLUCOSE METER 222 mg/dL 70-[address] [facility] 6720 (BEAKER) (test code = JULIANO Osborne [place] 1538) [address] POCT-GLUCOSE [id number] 13:55:00 Test Item Value Reference Range Interpretation Comments POC-GLUCOSE METER 194 mg/dL 70-110 H TESTED AT [place] [address] (BEAKER) (test code = MATTHIASAMANDA Dylon [place] 1538) [address] POCT-GLUCOSE [id number] 12:34:00 Test Item Value Reference Range Interpretation Comments POC-GLUCOSE METER 229 mg/dL 70-110 H TESTED AT [place] [address] (BEAKER) (test code = MATTHIASAMANDA Dylon [place] 1538) [address] POCT-GLUCOSE [id number] 08:00:00 Test Item Value Reference Range Interpretation Comments POC-GLUCOSE METER 159 mg/dL 70-110 H TESTED AT [place] [address] (BEAKER) (test code = JULIANO Osobrne [place] 1538) [address] CALCIUM, [id number] 06:00:00 Test Item Value Reference Range Interpretation Comments CALCIUM IONIZED (BEAKER) (test 1.05 mmol/L 1.12-1.27 L code = 698) PH, BLOOD (BEAKER) (test code = 7.45 1810) [id number] 05:59:00 Test Item Value Reference Range Interpretation Comments PHOSPHORUS (BEAKER) (test code = 4.8 mg/dL 2.3-4.7 H 604) [id number] 05:59:00 Test Item Value Reference Range Interpretation Comments MAGNESIUM (BEAKER) (test code = 2.0 mg/dL 1.6-2.6 627) BASIC METABOLIC [id number] 05:59:00 Test Item Value Reference Range Interpretation [...] = 380) CBC W/PLT COUNT & AUTO [id number] 05:32:00 Test Item Value Reference Range Interpretation [...] PERCENT (BEAKER) (test code = 2801) POCT-GLUCOSE [id number] 20:36:00 Test Item Value Reference Range Interpretation Comments POC-GLUCOSE METER 211 mg/dL 70-[address] [facility] 67 (BEAKER) (test code = [facility] 1538) [address] CREATININE, RANDOM [id number] 19:55:00 Test Item Value Reference Range Interpretation Comments CREATININE URINE (BEAKER) (test 16.1 mg/dL code = 375) Reference Range: No NormalsPROTEIN, RANDOM [id number] 19:55:00 Test Item Value Reference Range Interpretation Comments PROTEIN, URINE (BEAKER) (test code 102 mg/dL 0-14 H = 1569) POCT-GLUCOSE [id number] 18:04:00 Test Item Value Reference Range Interpretation Comments POC-GLUCOSE METER 177 mg/dL 70-[address] [facility] 6720 (BEAKER) (test code = [facility] 1538) [address] POCT-GLUCOSE [id number] 11:59:00 Test Item Value Reference Range Interpretation Comments POC-GLUCOSE METER 244 mg/dL 70-[address] [facility] 6720 (BEAKER) (test code = JULIANO Osborne [place] 1538) [address] POCT-GLUCOSE [id number] 07:53:00 Test Item Value Reference Range Interpretation Comments POC-GLUCOSE METER 160 mg/dL 70-[address] [facility] 67[address] (BEAKER) (test code = JULIANO Osborne [place] 1538) [address] BASIC METABOLIC [id number] 05:29:00 Test Item Value Reference Range Interpretation [...] S NOT APPLICABLE FOR DIALYSIS PATIEN TS. [id number] 05:21:00 Test Item Value Reference Range Interpretation Comments MAGNESIUM (BEAKER) (test code = 2.1 mg/dL 1.6-2.6 627) HEPATIC FUNCTION [id number] 05:21:00 Test Item Value Reference Range Interpretation [...] code = 23 U/L 6-55 347) TROPONIN [id number] 05:18:00 Test Item Value Reference Range Interpretation [...] PERCENT (BEAKER) (test code = 2801) TROPONIN [id number] 23:40:00 Test Item Value Reference Range Interpretation [...] acidosis, acute neurological disease, and persistent tachyarrhythmia.POCT-GLUCOSE [id number] 22:51:00 Test Item Value Reference Range Interpretation Comments POC-GLUCOSE METER 214 mg/dL 70-[address] [facility] 67[address] ([facility]) (test code = JULIANO Osborne [place] 1538) [address] RAD, CHEST, 1 VIEW, NON [id number] 21:42:00Reason for exam:->CHEST PAINShould this be performed at the bedside?->YesFINAL REPORT RAD, CHEST, 1 VIEW, NON DEPT INDICATION: CHEST PAIN COMPARISON: Chest x-ray 4 weeks ago TECHNIQUE: Single frontal view of the chest. IMPRESSION:Cardiomegaly.Mild pulmonary interstitial edema with a small right- sided effusion.No acute osseous abnormality. Signed: Dario Abraham [facility] Verified Date/Time: 09/02/2017 21:42:11 Reading Location: [address] Reading Room CREATININE, RANDOM [id number] 21:10:00 Test Item Value Reference Range Interpretation Comments CREATININE URINE (BEAKER) (test 35.5 mg/dL code = 375) Reference Range: No NormalsSODIUM, RANDOM [id number] 21:10:00 Test Item Value Reference Range Interpretation Comments SODIUM URINE (BEAKER) (test code = 80 meq/L 243) Reference Range: No NormalsURINALYSIS W/ [id number] 20:59:00 Test Item Value Reference Range Interpretation [...] code = 514) SOURCE(BEAKER) (test code = 1865) BASIC METABOLIC [id number] 16:49:00 Test Item Value Reference Range Interpretation [...] S NOT APPLICABLE FOR DIALYSIS PATIEN TS. [id number] 16:38:00 Test Item Value Reference Range Interpretation [...] (BEAKER) (test code = 700) BASIC METABOLIC [id number] 13:43:00 Test Item Value Reference Range Interpretation [...] NOT APPLICABLE FOR DIALYSIS PATIEN TS. POCT-GLUCOSE [id number] 12:44:00 Test Item Value Reference Range Interpretation Comments POC-GLUCOSE METER 283 mg/dL 70-[address] [facility] 67[address] [facility] (test code = [place]IANO [place] 1538) [address] CALCIUM, [id number] 07:03:00 Test Item Value Reference Range Interpretation Comments CALCIUM IONIZED (BEAKER) (test 1.02 mmol/L 1.12-1.27 L code = 698) PH, BLOOD (BEAKER) (test code = 7.43 1810) [id number] 05:28:00 Test Item Value Reference Range Interpretation Comments PHOSPHORUS (BEAKER) (test code = 3.3 mg/dL 2.3-4.7 604) [id number] 05:28:00 Test Item Value Reference Range Interpretation Comments MAGNESIUM (BEAKER) (test code = 1.5 mg/dL 1.6-2.6 L 627) BASIC METABOLIC [id number] 05:28:00 Test Item Value Reference Range Interpretation [...] PATIEN TS. CBC W/PLT COUNT & AUTO [id number] 05:06:00 Test Item Value Reference Range Interpretation [...] PERCENT (BEAKER) (test code = 2801) POCT-GLUCOSE [id number] 21:08:00 Test Item Value Reference Range Interpretation Comments POC-GLUCOSE METER 202 mg/dL 70-110 H TESTED AT [place] [address] ([facility] (test code = JULIANO Osborne [facility] 1538) [address] POCT-GLUCOSE [id number] 16:50:00 Test Item Value Reference Range Interpretation Comments POC-GLUCOSE METER 287 mg/dL 70-110 H TESTED AT [place] [address] ([facility]) (test code = JULIANO Osborne [facility] 1538) [address] POCT-GLUCOSE [id number] 12:21:00 Test Item Value Reference Range Interpretation Comments POC-GLUCOSE METER 213 mg/dL 70-110 H TESTED AT [place] [address] (BEAKER) (test code = JULIANO Osborne [facility] 1538) [address] POCT-GLUCOSE [id number] 08:28:00 Test Item Value Reference Range Interpretation Comments POC-GLUCOSE METER 178 mg/dL 70-110 H TESTED AT [facility] 6720 (BEAKER) (test code = JULIANO [place] 1538) [address] CALCIUM, [id number] 07:06:00 Test Item Value Reference Range Interpretation Comments CALCIUM IONIZED (BEAKER) (test 0.99 mmol/L 1.12-1.27 L code = 698) PH, BLOOD (BEAKER) (test code = 7.42 1810) [id number] 05:37:00 Test Item Value Reference Range Interpretation Comments PHOSPHORUS (BEAKER) (test code = 3.5 mg/dL 2.3-4.7 604) [id number] 05:37:00 Test Item Value Reference Range Interpretation Comments MAGNESIUM (BEAKER) (test code = 1.6 mg/dL 1.6-2.6 627) BASIC METABOLIC [id number] 05:37:00 Test Item Value Reference Range Interpretation [...] PATIEN TS. CBC W/PLT COUNT & AUTO [id number] 05:07:00 Test Item Value Reference Range Interpretation [...] PERCENT (BEAKER) (test code = 2801) POCT-GLUCOSE [id number] 21:24:00 Test Item Value Reference Range Interpretation Comments POC-GLUCOSE METER 255 mg/dL 70-110 H TESTED AT [place] [address] ([facility]) (test code = JULIANO Osboren [place] 1538) [address] POCT-GLUCOSE [id number] 17:11:00 Test Item Value Reference Range Interpretation Comments POC-GLUCOSE METER 244 mg/dL 70-110 H TESTED AT [place] [address] ([facility]) (test code = JULIANO Osborne [facility] 1538) [address] POCT-GLUCOSE [id number] 11:54:00 Test Item Value Reference Range Interpretation Comments POC-GLUCOSE METER 209 mg/dL 70-110 H TESTED AT [place] [address] ([facility]) (test code = JULIANO Osborne [facility] 1538) [address] POCT-GLUCOSE [id number] 08:15:00 Test Item Value Reference Range Interpretation Comments POC-GLUCOSE METER 132 mg/dL 70-110 H TESTED AT [place] [address] ([facility]) (test code = JULIANO Osborne [facility] 1538) [address] RAD, CHEST, 1 VIEW, NON [id number] 07:44:00Reason for exam:->edemaShould this be performed at the bedside?->YesFINAL REPORT Chest one view AP 08/07/2017 7:44 AM CLINICAL INDICATION: edema COMPARISON: 05/31/2017 IMPRESSION: Cardiomediastinal contours are stable. There is mild pulmonary edema,asymmetric to the right. There are trace bilateral pleural effusions, with bibasilar linear atelectasis. Sternotomy wires remain midline. Signed: Regan Cespedes Verified Date/Time: 08/07/2017 07:44:22 Reading Location: [facility] Radiology Reading Room [id number] 05:30:00 Test Item Value Reference Range Interpretation Comments FERRITIN ([facility]) (test code = 361) 87 ng/mL 5-275 CBC W/PLT COUNT & AUTO [id number] 05:21:00 Test Item Value Reference Range Interpretation Comments WHITE BLOOD CELL COUNT ([facility]) 12.4 K/ L 3.5-10.5 H (test code = 775) RED BLOOD CELL COUNT ([facility]) 3.78 M/ L 3.93-5.22 L (test code [...] % 20-55 L (test code = 2590) [id number] 05:11:00 Test Item Value Reference Range Interpretation Comments PHOSPHORUS (BEAKER) (test code = 3.6 mg/dL 2.3-4.7 604) [id number] 05:11:00 Test Item Value Reference Range Interpretation Comments MAGNESIUM (BEAKER) (test code = 2.0 mg/dL 1.6-2.6 627) BASIC METABOLIC [id number] 05:11:00 Test Item Value Reference Range Interpretation [...] H (BEAKER) (test code = 700) CALCIUM, [id number] 04:58:00 Test Item Value Reference Range Interpretation Comments CALCIUM IONIZED (BEAKER) (test 1.04 mmol/L 1.12-1.27 L code = 698) PH, BLOOD (BEAKER) (test code = 7.41 1810) RETICULOCYTE [id number] 04:51:00 Test Item Value Reference Range Interpretation Comments RETICULOCYTE COUNT PCT (BEAKER) (test 1.2 % 0.5-1.7 code = 575) POCT-GLUCOSE [id number] 20:49:00 Test Item Value Reference Range Interpretation Comments POC-GLUCOSE METER 202 mg/dL 70-[address] [facility] 67[address] (BEAKER) (test code = [place]IANO [place] 1538) [address] CREATININE, RANDOM [id number] 18:38:00 Test Item Value Reference Range Interpretation Comments CREATININE URINE (BEAKER) (test 56.3 mg/dL code = 375) Reference Range: No NormalsPROTEIN, RANDOM [id number] 18:38:00 Test Item Value Reference Range Interpretation Comments PROTEIN, URINE (BEAKER) (test code 189 mg/dL 0-14 H = 1569) URINALYSIS W/ [id number] 18:34:00 Test Item Value Reference Range Interpretation [...] 516) SOURCE(BEAKER) (test code = Urine, Voided 6259) POCT-GLUCOSE [id number] 17:38:00 Test Item Value Reference Range Interpretation Comments POC-GLUCOSE METER 143 mg/dL 70-[address] [facility] 67 (BEAKER) (test code = [facility] Dylon [place] 1538) [address] POCT-GLUCOSE [id number] 12:30:00 Test Item Value Reference Range Interpretation Comments POC-GLUCOSE METER 218 mg/dL 70-110 H TESTED AT [place] [address] (BEAKER) (test code = [facility] [place] 1538) [address] POCT-GLUCOSE [id number] 08:00:00 Test Item Value Reference Range Interpretation Comments POC-GLUCOSE METER 134 mg/dL 70-110 H TESTED AT [place] [address] (BEAKER) (test code = [facility] 1538) [address] CBC W/PLT COUNT & AUTO [id number] 04:23:00 Test Item Value Reference Range Interpretation [...] (BEAKER) (test code = 2801) BASIC METABOLIC [id number] 04:13:00 Test Item Value Reference Range Interpretation [...] S NOT APPLICABLE FOR DIALYSIS PATIEN TS. [id number] 04:10:00 Test Item Value Reference Range Interpretation Comments PHOSPHORUS (BEAKER) (test code = 4.9 mg/dL 2.3-4.7 H 604) [id number] 04:10:00 Test Item Value Reference Range Interpretation Comments MAGNESIUM (BEAKER) (test code = 1.4 mg/dL 1.6-2.6 L 627) [id number] 04:08:00 Test Item Value Reference Range Interpretation Comments FIBRINOGEN LEVEL (BEAKER) (test 548 mg/dl 225-434 H code = 658) [id number] 04:08:00 Test Item Value Reference Range Interpretation Comments PARTIAL THROMBOPLASTIN TIME 37.7 seconds 22.5-36.0 H (BEAKER) (test code = 760) PROTHROMBIN [id number] 04:07:00 Test Item Value Reference Range Interpretation Comments PROTIME (BEAKER) (test code = 16.2 seconds 11.7-14.7 H 759) INR (BEAKER) (test code = 370) 1.3 <=5.9 RECOMMENDED COUMADIN/WARFARIN INR THERAPY RANGESSTANDARD DOSE: 2.0 - 3.0 Includes: PROPHYLAXIS forvenous thrombosis, systemic embolization; TREATMENT for venous thrombosis and/or pulmonary embolus.HIGH RISK: Target INR is 2.5-3.5 for patients with mechanical heart valves.[id number] 16:59:00 Test Item Value Reference Range Interpretation Comments ACTIVATED CLOTTING TIME 219 sec [address] ED [address] [facility] 6720 (BEAKER) (test code = [place]ULIANO [place] 441) [address] BASIC METABOLIC [id number] 14:25:00 Test Item Value Reference Range Interpretation [...] NOT APPLICABLE FOR DIALYSIS PATIEN TS. POCT-GLUCOSE [id number] 13:21:00 Test Item Value Reference Range Interpretation Comments POC-GLUCOSE METER 170 mg/dL 70-[address] [facility] 67[address] (BEAKER) (test code = JULIANO [place] 1538) [address] POTASSIUM-STAT [id number] 13:20:00 Test Item Value Reference Range Interpretation Comments POTASSIUM (BEAKER) (test code = 4.2 meq/L 3.6-5.5 379) SODIUM NA-STAT [id number] 13:20:00 Test Item Value Reference Range Interpretation Comments SODIUM (BEAKER) (test code = 381) 133 meq/L 135-148 L HGB/HCT (H&H) - STAT [id number] 12:34:00 Test Item Value Reference Range Interpretation Comments HEMOGLOBIN (BEAKER) (test code = 10.8 g/dL 12.0-15.0 L 410) HEMATOCRIT (BEAKER) (test code = 32.0 % 36.0-45.0 L 411) POTASSIUM-STAT [id number] 08:15:00 Test Item Value Reference Range Interpretation Comments POTASSIUM (BEAKER) (test code = 4.1 meq/L 3.6-5.5 379) BLOOD GAS, [id number] 08:15:00 Test Item Value Reference Range Interpretation [...] code = 1819) 70.0 % SODIUM NA-STAT [id number] 08:15:00 Test Item Value Reference Range Interpretation Comments SODIUM (BEAKER) (test code = 381) 130 meq/L 135-148 L GLUCOSE-STAT [id number] 08:15:00 Test Item Value Reference Range Interpretation Comments GLUCOSE RANDOM (BEAKER) (test code 172 mg/dL 70-110 H = 652) HGB/HCT (H&H) - STAT [id number] 08:15:00 Test Item Value Reference Range Interpretation Comments HEMOGLOBIN (BEAKER) (test code = 8.8 g/dL 12.0-15.0 L 410) HEMATOCRIT (BEAKER) (test code = 26.0 % 36.0-45.0 L 411) BASIC METABOLIC [id number] 07:37:00 Test Item Value Reference Range Interpretation [...] PATIEN TS. CBC W/PLT COUNT & AUTO [id number] 07:20:00 Test Item Value Reference Range Interpretation [...] PERCENT (BEAKER) (test code = 2801) POCT-GLUCOSE [id number] 07:03:00 Test Item Value Reference Range Interpretation Comments POC-GLUCOSE METER 186 mg/dL 70-[address] [facility] 67[address] (BEAKER) (test code = JULIANO Osborne [place] 1538) [address] B-TYPE NATRIURETIC FACTOR (BNP)2017-06-10 12:44:00 Test Item Value Reference Range Interpretation Comments B-TYPE NATRIURETIC PEPTIDE 1264 pg/mL 0-100 H (BEAKER) (test code = 700) [id number] 12:36:00 Test Item Value Reference Range Interpretation Comments MAGNESIUM (BEAKER) (test code = 1.6 mg/dL 1.6-2.6 627) BASIC METABOLIC [id number] 12:36:00 Test Item Value Reference Range Interpretation [...] NOT APPLICABLE FOR DIALYSIS PATIEN TS. POCT-GLUCOSE [id number] 12:04:00 Test Item Value Reference Range Interpretation Comments POC-GLUCOSE METER 274 mg/dL 70-[address] [facility] 67[address] ([facility] (test code = JULIANO Osborne [place] 1538) [address] POCT-GLUCOSE [id number] 07:21:00 Test Item Value Reference Range Interpretation Comments POC-GLUCOSE METER 137 mg/dL 70-[address] [facility] 6720 (BEAKER) (test code = JULIANO [place] 1538) [address] BASIC METABOLIC [id number] 05:10:00 Test Item Value Reference Range Interpretation [...] CELL DISTRIBUTION WIDTH 15.2 % 11.7-14.4 H ([facility]) (test code = 412) PLATELET COUNT ([facility]) (test 320 K/CU MM 150-450 code = 756) MEAN PLATELET VOLUME (AKER) 9.5 fL 9.4-12.3 (test code = 754) NUCLEATED RED BLOOD CELLS 0 /100 WBC 0-0 ([facility]) (test code = 413) POCT-GLUCOSE [id number] 21:23:00 Test Item Value Reference Range Interpretation Comments POC-GLUCOSE METER 240 mg/dL 70-110 H TESTED AT [place] [address] ([facility]) (test code = [facility] Dylon [facility] 1538) [address] POCT-GLUCOSE [id number] 16:42:00 Test Item Value Reference Range Interpretation Comments POC-GLUCOSE METER 234 mg/dL 70-110 H TESTED AT [place] [address] ([facility]) (test code = [facility] Dylon [facility] 1538) [address] POCT-GLUCOSE [id number] 13:22:00 Test Item Value Reference Range Interpretation Comments POC-GLUCOSE METER 166 mg/dL 70-110 H TESTED AT [place] [address] ([facility]) (test code = [facility] Dylon [facility] 1538) [address] RAD, CHEST, 1 VIEW, NON [id number] 09:43:00Reason for exam:->s/p ACBShould this be performed [...] Lynda Ring Verified Date/Time: 05/31/2017 09:43:30 ReadingLocation: [facility] B1 C013X Ortho Consult Reading Room POCT-GLUCOSE [id number] 06:57:00 Test Item Value Reference Range Interpretation Comments POC-GLUCOSE METER 136 mg/dL 70-[address] [facility] 6720 (BEAKER) (test code = JULIANO [place] 1538) [address] CALCIUM, [id number] 06:41:00 Test Item Value Reference Range Interpretation Comments CALCIUM IONIZED (BEAKER) (test 1.10 mmol/L 1.12-1.27 L code = 698) PH, BLOOD (BEAKER) (test code = 7.42 1810) [id number] 06:17:00 Test Item Value Reference Range Interpretation Comments PHOSPHORUS (BEAKER) (test code = 3.3 mg/dL 2.3-4.7 604) [id number] 06:17:00 Test Item Value Reference Range Interpretation Comments MAGNESIUM (BEAKER) (test code = 1.8 mg/dL 1.6-2.6 627) BASIC METABOLIC [id number] 06:17:00 Test Item Value Reference Range Interpretation [...] PATIEN TS. CBC W/PLT COUNT & AUTO [id number] 05:07:00 Test Item Value Reference Range Interpretation [...] PERCENT (BEAKER) (test code = 2801) POCT-GLUCOSE [id number] 20:56:00 Test Item Value Reference Range Interpretation Comments POC-GLUCOSE METER 196 mg/dL 70-[address] [facility] 6720 (BEAKER) (test code = JULIANO Osborne [place] 1538) [address] POCT-GLUCOSE [id number] 16:42:00 Test Item Value Reference Range Interpretation Comments POC-GLUCOSE METER 196 mg/dL 70-[address] [facility] 6720 (BEAKER) (test code = JULIANO Osborne [place] 1538) [address] POCT-GLUCOSE [id number] 11:45:00 Test Item Value Reference Range Interpretation Comments POC-GLUCOSE METER 215 mg/dL 70-[address] [facility] 6720 (BEAKER) (test code = JULIANO Osborne [facility] 1538) [address] RAD, CHEST, 1 VIEW, NON [id number] 11:15:00Reason for exam:->s/p ACBShould this be performed at the bedside?->YesFINAL REPORT Chest one view compared to May 28, 2017 Discussion: Airspace opacities are seen in both lower lung regions, probably atelectasis. Correlate clinically for infection. I could not exclude small effusions. No pneumothorax. Upper lungs clear. Signed: Jeannette Nava Verified Date/Time: 05/30/2017 11:15:07 Reading Location: [facility] Radiology Reading Room CALCIUM, [id number] 09:21:00 Test Item Value Reference Range Interpretation Comments CALCIUM IONIZED (BEAKER) (test 1.11 mmol/L 1.12-1.27 L code = 698) PH, BLOOD (BEAKER) (test code = 7.36 1810) BASIC METABOLIC [id number] 07:37:00 Test Item Value Reference Range Interpretation [...] S NOT APPLICABLE FOR DIALYSIS PATIEN TS. [id number] 07:28:00 Test Item Value Reference Range Interpretation Comments PHOSPHORUS (BEAKER) (test code = 3.8 mg/dL 2.3-4.7 604) [id number] 07:28:00 Test Item Value Reference Range Interpretation Comments MAGNESIUM (BEAKER) (test code = 1.9 mg/dL 1.6-2.6 627) CBC W/PLT COUNT & AUTO [id number] 07:26:00 Test Item Value Reference Range Interpretation [...] PERCENT (BEAKER) (test code = 2801) POCT-GLUCOSE [id number] 07:21:00 Test Item Value Reference Range Interpretation Comments POC-GLUCOSE METER 146 mg/dL 70-110 H TESTED AT [place] [address] ([facility]) (test code = [facility] 1538) [address] POCT-GLUCOSE [id number] 22:02:00 Test Item Value Reference Range Interpretation Comments POC-GLUCOSE METER 201 mg/dL 70-110 H TESTED AT [place] [address] ([facility]) (test code = [facility] 1538) [address] POCT-GLUCOSE [id number] 18:27:00 Test Item Value Reference Range Interpretation Comments POC-GLUCOSE METER 240 mg/dL 70-110 H TESTED AT [place] [address] ([facility]) (test code = [facility] 1538) [address] POCT-GLUCOSE [id number] 12:13:00 Test Item Value Reference Range Interpretation Comments POC-GLUCOSE METER 193 mg/dL 70-110 H TESTED AT [place] [address] ([facility]) (test code = [facility] 1538) [address] POCT-GLUCOSE [id number] 09:02:00 Test Item Value Reference Range Interpretation Comments POC-GLUCOSE METER 132 mg/dL 70-[address] [facility] [address] (BEAKER) (test code = [place] 1538) [address] CALCIUM, [id number] 05:42:00 Test Item Value Reference Range Interpretation Comments CALCIUM IONIZED (BEAKER) (test 1.12 mmol/L 1.12-1.27 code = 698) PH, BLOOD (BEAKER) (test code = 7.34 1810) COMPREHENSIVE METABOLIC [id number] 05:33:00 Test Item Value Reference Range Interpretation [...] S NOT APPLICABLE FOR DIALYSIS PATIEN TS. [id number] 05:32:00 Test Item Value Reference Range Interpretation Comments PHOSPHORUS (BEAKER) (test code = 3.6 mg/dL 2.3-4.7 604) [id number] 05:32:00 Test Item Value Reference Range Interpretation Comments MAGNESIUM (BEAKER) (test code = 2.2 mg/dL 1.6-2.6 627) CBC W/PLT COUNT & AUTO [id number] 05:01:00 Test Item Value Reference Range Interpretation [...] PERCENT (BEAKER) (test code = 2801) POCT-GLUCOSE [id number] 21:04:00 Test Item Value Reference Range Interpretation Comments POC-GLUCOSE METER 165 mg/dL 70-110 H TESTED AT [place] [address] ([facility]) (test code = JULIANO Osborne [facility] 1538) [address] POCT-GLUCOSE [id number] 17:30:00 Test Item Value Reference Range Interpretation Comments POC-GLUCOSE METER 236 mg/dL 70-110 H TESTED AT [place] [address] ([facility]) (test code = JULIANO Osborne [facility] 1538) [address] RAD, CHEST, 1 VIEW, NON [id number] 13:53:00Reason for exam:->assess for ill-defined opacityShould this [...] MDReport Verified Date/Time: 05/28/2017 13:53:03 Reading Location: [address] Radiology Reading Room POCT-GLUCOSE [id number] 11:53:00 Test Item Value Reference Range Interpretation Comments POC-GLUCOSE METER 215 mg/dL 70-110 H TESTED AT [facility] 6720 (BEAKER) (test code = JULIANO Osborne [place] 1538) [address] POCT-GLUCOSE [id number] 08:32:00 Test Item Value Reference Range Interpretation Comments POC-GLUCOSE METER 168 mg/dL 70-[address] [facility] 6720 (BEAKER) (test code = JULIANO Osborne [place] 1538) [address] CALCIUM, [id number] 05:44:00 Test Item Value Reference Range Interpretation Comments CALCIUM IONIZED (BEAKER) (test 1.09 mmol/L 1.12-1.27 L code = 698) PH, BLOOD (BEAKER) (test code = 7.38 1810) [id number] 05:44:00 Test Item Value Reference Range Interpretation Comments PHOSPHORUS (BEAKER) (test code = 3.5 mg/dL 2.3-4.7 604) [id number] 05:44:00 Test Item Value Reference Range Interpretation Comments MAGNESIUM (BEAKER) (test code = 1.9 mg/dL 1.6-2.6 627) BASIC METABOLIC [id number] 05:44:00 Test Item Value Reference Range Interpretation [...] PATIEN TS. CBC W/PLT COUNT & AUTO [id number] 05:05:00 Test Item Value Reference Range Interpretation [...] 417) IMMATURE GRANULOCYTES-RELATIVE 1 % 0-1 PERCENT ([facility]) (test code = 2801) POCT-GLUCOSE [id number] 21:03:00 Test Item Value Reference Range Interpretation Comments POC-GLUCOSE METER 173 mg/dL 70-110 H TESTED AT [place] [address] ([facility]) (test code = JULIANO Osborne [facility] 1538) [address] [id number] 18:15:00 Test Item Value Reference Range Interpretation Comments ACTIVATED CLOTTING TIME 147 sec TEST ED AT [place] [address] ([facility]) (test code = JULIANO Osborne [facility] 441) [address] [id number] 18:15:00 Test Item Value Reference Range Interpretation Comments ACTIVATED CLOTTING TIME 246 sec TEST ED AT [place] [address] ([facility]) (test code = JULIANO Osborne [facility] 441) [address] POCT-GLUCOSE [id number] 12:39:00 Test Item Value Reference Range Interpretation Comments POC-GLUCOSE METER 219 mg/dL 70-110 H TESTED AT [place] [address] ([facility]) (test code = MATTHIASMS Dylon [facility] 1538) [address] RAD, CHEST, 1 VIEW, NON [id number] 10:11:00Reason for exam:->pl effusionShould this be performed at the bedside?->YesFINAL REPORT Chest one view compared to May 26 Discussion: There is cardiac prominence. Upper lungs are clear. Ill-defined basilar densities are similar probably atelectasis. No gross effusion or pneumothorax with bilateral chest tubes in place. Signed: Jeannette Nava Verified Date/Time: 05/27/2017 10:11:44 Reading Location: [facility] Radiology Reading Room POCT-GLUCOSE METER 2017-05-27 07:05:00 Test Item Value Reference Range Interpretation Comments POC-GLUCOSE METER 167 mg/dL 70-110 H TESTED AT [place] [address] ([facility]) (test code = JULIANO Osborne [facility] 1538) [address] CALCIUM, [id number] 06:20:00 Test Item Value Reference Range Interpretation Comments CALCIUM IONIZED ([facility]) (test 0.98 mmol/L 1.12-1.27 L code = 698) PH, BLOOD (BEAKER) (test code = 7.50 1810) [id number] 04:56:00 Test Item Value Reference Range Interpretation Comments PHOSPHORUS (BEAKER) (test code = 2.6 mg/dL 2.3-4.7 604) [id number] 04:56:00 Test Item Value Reference Range Interpretation Comments MAGNESIUM (BEAKER) (test code = 2.0 mg/dL 1.6-2.6 627) BASIC METABOLIC [id number] 04:56:00 Test Item Value Reference Range Interpretation [...] PATIEN TS. CBC W/PLT COUNT & AUTO [id number] 04:36:00 Test Item Value Reference Range Interpretation [...] PERCENT (BEAKER) (test code = 2801) POCT-GLUCOSE [id number] 21:29:00 Test Item Value Reference Range Interpretation Comments POC-GLUCOSE METER 147 mg/dL 70-110 H TESTED AT [place] [address] (BEAKER) (test code = JULIANO REYEZ 1538) [address] POCT-GLUCOSE [id number] 17:51:00 Test Item Value Reference Range Interpretation Comments POC-GLUCOSE METER 224 mg/dL 70-110 H TESTED AT [place] [address] ([facility]) (test code = JULIANO Osborne [facility] 1538) [address] POCT-GLUCOSE [id number] 13:53:00 Test Item Value Reference Range Interpretation Comments POC-GLUCOSE METER 182 mg/dL 70-110 H TESTED AT [place] [address] ([facility]) (test code = JULIANO Osborne [facility] 1538) [address] RAD, CHEST, 1 VIEW, NON [id number] 08:44:00Reason for exam:->pl effusionShould this be performed [...] No other significant change. Signed: Olaf Ortega [facility] Verified Date/Time: 05/26/2017 08:44:25 Reading Location: [address] Radiology Reading Room POCT- GLUCOSE [id number] 07:43:00 Test Item Value Reference Range Interpretation Comments POC-GLUCOSE METER 113 mg/dL 70-110 H TESTED AT [place] [address] ([facility]) (test code = JULIANO Osborne [facility] 1538) [address] CALCIUM, [id number] 06:31:00 Test Item Value Reference Range Interpretation Comments CALCIUM IONIZED (BEAKER) (test 1.07 mmol/L 1.12-1.27 L code = 698) PH, BLOOD (BEAKER) (test code = 7.38 1810) [id number] 04:51:00 Test Item Value Reference Range Interpretation Comments PHOSPHORUS (BEAKER) (test code = 3.2 mg/dL 2.3-4.7 604) [id number] 04:51:00 Test Item Value Reference Range Interpretation Comments MAGNESIUM (BEAKER) (test code = 2.1 mg/dL 1.6-2.6 627) BASIC METABOLIC [id number] 04:51:00 Test Item Value Reference Range Interpretation [...] PATIEN TS. CBC W/PLT COUNT & AUTO [id number] 04:27:00 Test Item Value Reference Range Interpretation [...] PERCENT (BEAKER) (test code = 2800) POCT-GLUCOSE [id number] 23:48:00 Test Item Value Reference Range Interpretation Comments POC-GLUCOSE METER 123 mg/dL 70-[address] [facility] 6720 (BEAKER) (test code = [place]ULIANO [place] 1538) [address] POCT-GLUCOSE [id number] 16:46:00 Test Item Value Reference Range Interpretation Comments POC-GLUCOSE METER 178 mg/dL 70-[address] [facility] 6720 (BEAKER) (test code = JULIANO [place] 1538) [address] BASIC METABOLIC [id number] 05:53:00 Test Item Value Reference Range Interpretation [...] S NOT APPLICABLE FOR DIALYSIS PATIEN TS. [id number] 05:52:00 Test Item Value Reference Range Interpretation Comments PHOSPHORUS (BEAKER) (test code = 4.2 mg/dL 2.3-4.7 604) [id number] 05:52:00 Test Item Value Reference Range Interpretation Comments MAGNESIUM (BEAKER) (test code = 2.3 mg/dL 1.6-2.6 627) CALCIUM, [id number] 05:27:00 Test Item Value Reference Range Interpretation Comments CALCIUM IONIZED (BEAKER) (test 1.12 mmol/L 1.12-1.27 code = 698) PH, BLOOD (BEAKER) (test code = 7.38 1810) CBC W/PLT COUNT & AUTO [id number] 05:07:00 Test Item Value Reference Range Interpretation [...] = 2801) RAD, CHEST, 1 VIEW, NON [id number] 04:45:00Reason for exam:->pl effusionShould this be performed at the bedside?->YesFINAL REPORT RAD, CHEST, 1 VIEW, NON DEPT INDICATION: pl effusion COMPARISON:Prior day's exam FINDINGS: Portable frontal view of the chest. IMPRESSION: Support Lines: Stable.Lungs and pleura: Unchanged airspace and pleural opacities. No pneumothorax.Heart and mediastinum: Stable contours. Stable surgical changes.Additional findings: None. Signed: JR Boswell Robert MDReport Verified Date/Time: 05/25/2017 04:45:08 Reading Location: [facility] B1 C013Y CT Body Reading Room POCT-GLUCOSE [id number] 01:52:00 Test Item Value Reference Range Interpretation Comments POC-GLUCOSE METER 126 mg/dL 70-[address] [facility] 6720 ([facility]) (test code = JULIANO Osborne [place] 1538) [address] POCT-GLUCOSE [id number] 13:07:00 Test Item Value Reference Range Interpretation Comments POC-GLUCOSE METER 118 mg/dL 70-[address] [facility] 6720 (AKER) (test code = JULIANO Osborne [place] 1538) [address] BRONCHIAL CULTURE + GRAM [id number] 11:35:00 Test Item Value Reference Range Interpretation [...] <1+ gram (BEAKER) (test code = positive 306851) cocci in pairs GRAM STAIN RESULT 1+ gram (BEAKER) (test code = variable rods 831593) 1+ Normal respiratory todd presentRAD, CHEST, 1 VIEW, NON [id number] 06:50:00Reason for exam:->pl effusionShould this be performed at the bedside?->YesFINAL REPORT RAD, CHEST, 1 VIEW, NON DEPT INDICATION: pl effusion COMPARISON:Prior day's exam FINDINGS: Portable frontal view of the chest. IMPRESSION: Support Lines: Stable.Lungs and pleura: Unchanged airspace and pleural opacities. No pneumothorax.Heart and mediastinum: Stable contours. Stable surgical changes.Additional findings: None. Signed: JR Boswell Robert MDReport Verified Date/Time: 05/24/2017 06:50:08 Reading Location: [address] Body Reading Room BASIC METABOLIC [id number] 04:19:00 Test Item Value Reference Range Interpretation [...] NOT APPLICABLE FOR DIALYSIS PATIEN TS. CALCIUM, [id number] 04:16:00 Test Item Value Reference Range Interpretation Comments CALCIUM IONIZED (BEAKER) (test 1.06 mmol/L 1.12-1.27 L code = 698) PH, BLOOD (BEAKER) (test code = 7.40 1810) [id number] 04:11:00 Test Item Value Reference Range Interpretation Comments PHOSPHORUS (BEAKER) (test code = 6.0 mg/dL 2.3-4.7 H 604) [id number] 04:11:00 Test Item Value Reference Range Interpretation Comments MAGNESIUM (BEAKER) (test code = 2.4 mg/dL 1.6-2.6 627) CBC W/PLT COUNT & AUTO [id number] 03:50:00 Test Item Value Reference Range Interpretation [...] PERCENT (BEAKER) (test code = 2801) POCT-GLUCOSE [id number] 20:45:00 Test Item Value Reference Range Interpretation Comments POC-GLUCOSE METER 143 mg/dL 70-110 H TESTED AT [place] [address] ([facility]) (test code = [place]ULIANO [place] 1538) [address] POCT-GLUCOSE [id number] 20:45:00 Test Item Value Reference Range Interpretation Comments POC-GLUCOSE METER 145 mg/dL 70-[address] [facility] 67 ([facility]) (test code = [facility] Dylon [facility] 1538) [address] [id number] 13:37:00 Test Item Value Reference Range Interpretation Comments PREALBUMIN (BEAKER) 10 mg/dL 14-45 L Specimen slightly (test code = 586) hemolyzed OXYGEN SATURATION, [id number] 12:31:00 Test Item Value Reference Range Interpretation Comments O2 SATURATION (MEASURED) (BEAKER) 94.5 % (test code = 1455) [id number] 11:02:00 Test Item Value Reference Range Interpretation Comments PREALBUMIN (BEAKER) (test code = 10 mg/dL 14-45 L 586) RAD, CHEST, 1 VIEW, NON [id number] 05:14:00while patient is intubated or has chest [...] changes.Additional findings: None. Signed: JR Elbert, Kelly ALEXANDREepemily Verified Date/Time: 05/23/2017 05:14:04 Reading Location: [address] Body Reading Room BASIC METABOLIC [id number] 03:48:00 Test Item Value Reference Range Interpretation [...] S NOT APPLICABLE FOR DIALYSIS PATIEN TS. [id number] 03:46:00 Test Item Value Reference Range Interpretation Comments MAGNESIUM (BEAKER) 2.4 mg/dL 1.6-2.6 Specimen slightly (test code = 627) hemolyzed [id number] 03:46:00 Test Item Value Reference Range Interpretation Comments PHOSPHORUS (BEAKER) 6.5 mg/dL 2.3-4.7 H Specimen slightly (test code = 604) hemolyzed CBC W/PLT COUNT & AUTO [id number] 03:26:00 Test Item Value Reference Range Interpretation [...] (BEAKER) (test code = 2801) BLOOD GAS, [id number] 03:18:00 Test Item Value Reference Range Interpretation [...] (test code = 1819) 36.0 % CALCIUM, [id number] 16:32:00 Test Item Value Reference Range Interpretation Comments CALCIUM IONIZED (BEAKER) (test 1.11 mmol/L 1.12-1.27 L code = 698) PH, BLOOD (BEAKER) (test code = 7.39 1810) BASIC METABOLIC [id number] 15:43:00 Test Item Value Reference Range Interpretation [...] NOT APPLICABLE FOR DIALYSIS PATIEN TS. POCT-GLUCOSE [id number] 12:53:00 Test Item Value Reference Range Interpretation Comments POC-GLUCOSE METER 118 mg/dL 70-[address] [facility] 6720 (BEAKER) (test code = JULIANO Osborne [facility] 1538) [address] BLOOD GAS, [id number] 10:42:00 Test Item Value Reference Range Interpretation [...] (test code = 1819) 40.0 % POCT-GLUCOSE [id number] 06:46:00 Test Item Value Reference Range Interpretation Comments POC-GLUCOSE METER 106 mg/dL 70-110 TESTED AT [place] [address] ([facility]) (test code = [facility] Dylon [facility] 1538) [address] RAD, CHEST, 1 VIEW, NON [id number] 05:05:00while patient is intubated or has chest [...] exam.Additional findings: None. Signed: JR Boswell Robert [facility] Verified Date/Time: 05/22/2017 05:05:00 Reading Location: [facility] B1 C013Y CT Body ReadingRoom BASIC METABOLIC [id number] 05:00:00 Test Item Value Reference Range Interpretation [...] S NOT APPLICABLE FOR DIALYSIS PATIEN TS. [id number] 04:41:00 Test Item Value Reference Range Interpretation Comments PHOSPHORUS (BEAKER) (test code = 6.4 mg/dL 2.3-4.7 H 604) [id number] 04:41:00 Test Item Value Reference Range Interpretation Comments MAGNESIUM (BEAKER) (test code = 2.6 mg/dL 1.6-2.6 627) CALCIUM, [id number] 04:26:00 Test Item Value Reference Range Interpretation Comments CALCIUM IONIZED (BEAKER) (test 1.09 mmol/L 1.12-1.27 L code = 698) PH, BLOOD (BEAKER) (test code = 7.40 1810) OXYGEN SATURATION, [id number] 04:25:00 Test Item Value Reference Range Interpretation Comments O2 SATURATION (MEASURED) (BEAKER) 77.0 % (test code = 1455) CBC W/PLT COUNT & AUTO [id number] 04:17:00 Test Item Value Reference Range Interpretation [...] code = 2801) LACTIC ACID, ARTERIAL, WHOLE [id number] 00:07:00 Test Item Value Reference Range Interpretation Comments LACTATE BLOOD 1.0 mmol/L 0.5-2.2 Specimen sligh tly ARTERIAL (2) (BEAKER) hemoly zed (test code = 2874) Effective 08/02/2015: Units/Reference Range ChangeNew: 0.5-2.2 mmol/L Previous: 5-20 mg/dLPOCT-GLUCOSE [id number] 23:47:00 Test Item Value Reference Range Interpretation Comments POC-GLUCOSE METER 180 mg/dL 70-[address] [facility] 6720 (BEAKER) (test code = JULIANO Osborne [place] 1538) [address] BLOOD GAS, [id number] 23:46:00 Test Item Value Reference Range Interpretation [...] code = 1819) 100.0 % SODIUM NA-STAT [id number] 23:46:00 Test Item Value Reference Range Interpretation Comments SODIUM (BEAKER) (test code = 381) 134 meq/L 135-148 L GLUCOSE-STAT [id number] 23:46:00 Test Item Value Reference Range Interpretation Comments GLUCOSE RANDOM (BEAKER) (test code 119 mg/dL 70-110 H = 652) HGB/HCT (H&H) - STAT [id number] 23:46:00 Test Item Value Reference Range Interpretation Comments HEMOGLOBIN (BEAKER) (test code = 8.8 g/dL 12.0-15.0 L 410) HEMATOCRIT ([facility]) (test code = 26.0 % 36.0-45.0 L 411) OXYGEN SATURATION, [id number] 23:45:00 Test Item Value Reference Range Interpretation Comments O2 SATURATION (MEASURED) ([facility]) 68.1 % (test code = 1455) POTASSIUM-STAT [id number] 23:45:00 Test Item Value Reference Range Interpretation Comments POTASSIUM ([facility]) (test code = 5.5 meq/L 3.6-5.5 379) POCT-GLUCOSE [id number] 20:58:00 Test Item Value Reference Range Interpretation Comments POC-GLUCOSE METER 133 mg/dL 70-110 H TESTED AT [place] [address] ([facility]) (test code = JULIANO Osborne [facility] 1538) [address] POCT-GLUCOSE [id number] 17:58:00 Test Item Value Reference Range Interpretation Comments POC-GLUCOSE METER 210 mg/dL 70-110 H TESTED AT [place] [address] ([facility]) (test code = JULIANO Osborne [facility] 1538) [address] POCT-GLUCOSE [id number] 17:58:00 Test Item Value Reference Range Interpretation Comments POC-GLUCOSE METER 211 mg/dL 70-110 H TESTED AT [place] [address] ([facility]) (test code = JULIANO Osborne [place] 1538) [address] POCT-GLUCOSE [id number] 17:58:00 Test Item Value Reference Range Interpretation Comments POC-GLUCOSE METER 232 mg/dL 70-110 H TESTED AT [place] [address] ([facility]) (test code = JULIANO Osborne [place] 1538) [address] POCT-GLUCOSE [id number] 17:58:00 Test Item Value Reference Range Interpretation Comments POC-GLUCOSE METER 262 mg/dL 70-110 H TESTED AT [place] [address] ([facility]) (test code = JULIANO Osborne [place] 1538) [address] BLOOD GAS, [id number] 17:01:00 Test Item Value Reference Range Interpretation Comments PH ARTERIAL ([facility]) (test code = 7.38 7.35-7.45 383) PCO2 ARTERIAL ([facility]) (test code 39 mmHg 35-45 = 384) PO2 ARTERIAL ([facility]) (test code 75 mmHg 80-90 L = 385) O2 SATURATION ARTERIAL (BEAKER) 94.9 % 96.0-97.0 L (test code = 386) HCO3 ARTERIAL (BEAKER) (test code 23 mmol/L 21-29 = 388) BASE EXCESS ARTERIAL (BEAKER) -2.5 mmol/L -2.0-3.0 L (test code = 387) PATIENT TEMPERATURE (BEAKER) 36.8 C (test code = 1818) FIO2 (BEAKER) (test code = 1819) 60.0 % POTASSIUM-STAT [id number] 17:00:00 Test Item Value Reference Range Interpretation Comments POTASSIUM (BEAKER) (test code = 4.8 meq/L 3.6-5.5 379) POCT-GLUCOSE [id number] 15:52:00 Test Item Value Reference Range Interpretation Comments POC-GLUCOSE METER 267 mg/dL 70-110 H TESTED AT [place] [address] (BEAKER) (test code = JULIANO Osborne [place] 1538) [address] POCT-GLUCOSE [id number] 14:42:00 Test Item Value Reference Range Interpretation Comments POC-GLUCOSE METER 231 mg/dL 70-110 H TESTED AT [place] [address] (BEAKER) (test code = MATTHIASMS Dylon [place] 1538) [address] BODY FLUID CELL COUNT WITH [id number] 14:41:00 Test Item Value Reference Range Interpretation [...] FLUID (BEAKER) EDTA Tube (test code = 1163) BASIC METABOLIC [id number] 14:11:00 Test Item Value Reference Range Interpretation [...] S NOT APPLICABLE FOR DIALYSIS PATIEN TS. [id number] 14:08:00 Test Item Value Reference Range Interpretation Comments PHOSPHORUS (BEAKER) (test code = 7.2 mg/dL 2.3-4.7 H 604) [id number] 14:08:00 Test Item Value Reference Range Interpretation Comments MAGNESIUM (BEAKER) (test code = 2.6 mg/dL 1.6-2.6 627) POCT-GLUCOSE [id number] 12:49:00 Test Item Value Reference Range Interpretation Comments POC-GLUCOSE METER 224 mg/dL 70-[address] [facility] 67[facility] (test code = JULIANO Osborne [facility] 1538) [address] POCT-GLUCOSE [id number] 12:49:00 Test Item Value Reference Range Interpretation Comments POC-GLUCOSE METER 248 mg/dL 70-[address] [facility] 6720 ([facility]) (test code = JULIANO Osborne [facility] 1538) [address] RAD, CHEST, 1 VIEW, NON [id number] 12:32:00Reason for exam:->re-intubationShould this be performed at [...] MDReport Verified Date/Time: 05/21/2017 12:32:08 Reading Location: [facility] Radiology Reading Room POTASSIUM-STAT [id number] 12:28:00 Test Item Value Reference Range Interpretation Comments POTASSIUM (BEAKER) (test code = 5.5 meq/L 3.6-5.5 379) BLOOD GAS, [id number] 12:28:00 Test Item Value Reference Range Interpretation [...] code = 1819) 100.0 % BLOOD GAS, [id number] 10:53:00 Test Item Value Reference Range Interpretation [...] 36.0 % RAD, CHEST, 1 VIEW, NON [id number] 08:46:00while patient is intubated or has chest [...] MDReport Verified Date/Time: 05/21/2017 08:46:27 Reading Location: [facility] Radiology Reading Room BLOOD GAS, [id number] 05:41:00 Test Item Value Reference Range Interpretation [...] (BEAKER) (test code = 1819) 40 CALCIUM, [id number] 04:35:00 Test Item Value Reference Range Interpretation Comments CALCIUM IONIZED (BEAKER) (test 1.13 mmol/L 1.12-1.27 code = 698) PH, BLOOD (BEAKER) (test code = 7.32 1810) BLOOD GAS, [id number] 04:28:00 Test Item Value Reference Range Interpretation [...] (BEAKER) (test code = 1819) 40.0 % [id number] 04:20:00 Test Item Value Reference Range Interpretation Comments PHOSPHORUS (BEAKER) (test code = 6.2 mg/dL 2.3-4.7 H 604) [id number] 04:20:00 Test Item Value Reference Range Interpretation Comments MAGNESIUM (BEAKER) (test code = 2.4 mg/dL 1.6-2.6 627) HEPATIC FUNCTION [id number] 04:20:00 Test Item Value Reference Range Interpretation [...] = 11 U/L 6-55 347) BASIC METABOLIC [id number] 04:20:00 Test Item Value Reference Range Interpretation [...] APPLICABLE FOR DIALYSIS PATIEN TS. OXYGEN SATURATION, [id number] 04:18:00 Test Item Value Reference Range Interpretation Comments O2 SATURATION (MEASURED) (BEAKER) 68.0 % (test code = 1455) LACTIC ACID, ARTERIAL, WHOLE [id number] 04:12:00 Test Item Value Reference Range Interpretation Comments LACTATE BLOOD ARTERIAL (2) 1.0 mmol/L 0.5-2.2 (BEAKER) (test code = 2874) Effective 08/02/2015: Units/Reference Range ChangeNew: 0.5-2.2 mmol/L Previous: 5-20 mg/dLCBC W/PLT COUNT & AUTO [id number] 04:00:00 Test Item Value Reference Range Interpretation [...] (BEAKER) (test code = 2801) BLOOD GAS, [id number] 00:06:00 Test Item Value Reference Range Interpretation [...] (BEAKER) (test code = 1819) 40.0 % [id number] 18:55:00 Test Item Value Reference Range Interpretation Comments PHOSPHORUS (BEAKER) (test code = 4.8 mg/dL 2.3-4.7 H 604) [id number] 18:55:00 Test Item Value Reference Range Interpretation Comments MAGNESIUM (BEAKER) (test code = 2.3 mg/dL 1.6-2.6 627) BASIC METABOLIC [id number] 18:55:00 Test Item Value Reference Range Interpretation [...] DIALYSIS PATIEN TS. LACTIC ACID, ARTERIAL, WHOLE [id number] 18:53:00 Test Item Value Reference Range Interpretation Comments LACTATE BLOOD 0.9 mmol/L 0.5-2.2 Specimen justo armas ARTERIAL (2) (BEAKER) hemoly zed (test code = 2874) Effective 08/02/2015: Units/Reference Range ChangeNew: 0.5-2.2 mmol/L Previous: 5-20 mg/dLRAD, CHEST, 1 VIEW, NON [id number] 18:44:00Reason for exam:- >postop cardiacShould this be [...] MDReport Verified Date/Time: 05/20/2017 18:44:30 Reading Location: [facility] [id number] Consult Reading Room Electronically signed by: MIGUEL BHAKTA M.D. on05/20/2017 06:44 PMCBC W/PLT COUNT & AUTO [id number] 18:38:00 Test Item Value Reference Range Interpretation [...] (BEAKER) (test code = 2801) OXYGEN SATURATION, [id number] 18:36:00 Test Item Value Reference Range Interpretation Comments O2 SATURATION (MEASURED) (BEAKER) 72.5 % (test code = 1455) From distal port of IJ central venous catheterSODIUM NA-STAT [id number] 18:30:00 Test Item Value Reference Range Interpretation Comments SODIUM (BEAKER) (test code = 381) 132 meq/L 135-148 L HGB/HCT (H&H) - STAT [id number] 18:30:00 Test Item Value Reference Range Interpretation Comments HEMOGLOBIN (BEAKER) (test code = 9.4 g/dL 12.0-15.0 L 410) HEMATOCRIT (BEAKER) (test code = 28.0 % 36.0-45.0 L 411) GLUCOSE-STAT [id number] 18:30:00 Test Item Value Reference Range Interpretation Comments GLUCOSE RANDOM (BEAKER) (test code 159 mg/dL 70-110 H = 652) BLOOD GAS, [id number] 18:30:00 Test Item Value Reference Range Interpretation [...] (test code = 1819) 60.0 % CALCIUM, [id number] 18:30:00 Test Item Value Reference Range Interpretation Comments CALCIUM IONIZED (BEAKER) (test 0.94 mmol/L 1.12-1.27 L code = 698) PH, BLOOD (BEAKER) (test code = 7.34 1810) POTASSIUM-STAT [id number] 18:28:00 Test Item Value Reference Range Interpretation [...] TGH ACTIVATED CLOTTING TIME 6.7 minutes 4.0-7.0 ([facility]) (test code = 1411) TGH FIBRINOGEN ACTIVITY ([facility]) 69.0 degrees 61.0-73.0 (test code = 1412) TGH PLT. AGGREGATION ([facility]) 62.8 MM 55.0-65.0 (test code = 1413) TGH FIBRINOLYSIS ([facility]) (test 0.0 % 0.0-5.0 code = 1414) [id number] 17:53:00 Test Item Value Reference Range Interpretation Comments ACTIVATED CLOTTING TIME 103 sec TEST ED AT [place] [address] ([facility]) (test code = [place] [address]) [address] [id number] 17:53:00 Test Item Value Reference Range Interpretation Comments ACTIVATED CLOTTING TIME 466 sec TEST ED AT [place] [address] ([facility]) (test code = JULIANO Osborne [place] [address]) [address] [id number] 17:53:00 Test Item Value Reference Range Interpretation Comments ACTIVATED CLOTTING TIME 543 sec TEST ED AT [place] [address] ([facility]) (test code = J[place]IANO Osborne [place] [address]) [address] [id number] 17:53:00 Test Item Value Reference Range Interpretation Comments ACTIVATED CLOTTING TIME 549 sec TEST ED AT [place] [address] ([facility]) (test code = [place] [address]) [address] [id number] 17:53:00 Test Item Value Reference Range Interpretation Comments ACTIVATED CLOTTING TIME 632 sec TEST ED AT [place] [address] ([facility]) (test code = JULIANO Osborne [place] [address]) [address] [id number] 17:53:00 Test Item Value Reference Range Interpretation Comments ACTIVATED CLOTTING TIME 494 sec TEST ED AT [place] [address] ([facility]) (test code = J[place]IANO Osborne [place] [address]) [address] [id number] 17:53:00 Test Item Value Reference Range Interpretation Comments ACTIVATED CLOTTING TIME 587 sec TEST ED AT [place] [address] ([facility]) (test code = JULIANO Osborne [place] [address]) [address] [id number] 17:53:00 Test Item Value Reference Range Interpretation Comments ACTIVATED CLOTTING TIME 626 sec TEST ED AT [place] [address] ([facility]) (test code = JULIANO Osborne [place] [address]) [address] [id number] 17:52:00 Test Item Value Reference Range Interpretation Comments ACTIVATED CLOTTING TIME 808 sec TEST ED AT [place] [address] ([facility]) (test code = JULIANO Osborne [place] [address]) [address] [id number] 16:54:00 Test Item Value Reference Range Interpretation Comments PARTIAL THROMBOPLASTIN TIME 40.2 seconds 22.5-36.0 H ([facility]) (test code = 760) [id number] 16:53:00 Test Item Value Reference Range Interpretation Comments FIBRINOGEN LEVEL ([facility]) (test 306 mg/dl 225-434 code = 658) PROTHROMBIN [id number] 16:50:00 Test Item Value Reference Range Interpretation Comments PROTIME ([facility]) (test code = 19.6 seconds 11.7-14.7 H 759) INR ([facility]) (test code = 370) 1.7 <=5.9 RECOMMENDED COUMADIN/WARFARIN INR THERAPY RANGESSTANDARD DOSE: 2.0 - 3.0 Includes: PROPHYLAXIS forvenous thrombosis, systemic embolization; TREATMENT for venous thrombosis and/or pulmonary embolus.HIGH RISK: Target INR is 2.5-3.5 for patients with mechanical heart valves.PLATELET [id number] 16:45:00 Test Item Value Reference Range Interpretation Comments PLATELET COUNT (BEAKER) (test 136 K/CU MM 150-450 L code = 756) POTASSIUM-STAT [id number] 16:15:00 Test Item Value Reference Range Interpretation Comments POTASSIUM (BEAKER) (test code = 4.9 meq/L 3.6-5.5 379) BLOOD GAS, [id number] 16:15:00 Test Item Value Reference Range Interpretation [...] code = 1819) 100.0 % SODIUM NA-STAT [id number] 16:15:00 Test Item Value Reference Range Interpretation Comments SODIUM (BEAKER) (test code = 381) 131 meq/L 135-148 L GLUCOSE-STAT [id number] 16:15:00 Test Item Value Reference Range Interpretation Comments GLUCOSE RANDOM (BEAKER) (test code 198 mg/dL 70-110 H = 652) HGB/HCT (H&H) - STAT [id number] 16:15:00 Test Item Value Reference Range Interpretation Comments HEMOGLOBIN (BEAKER) (test code = 7.5 g/dL 12.0-15.0 L 410) HEMATOCRIT (BEAKER) (test code = 22.0 % 36.0-45.0 L 411) CALCIUM, [id number] 16:14:00 Test Item Value Reference Range Interpretation Comments CALCIUM IONIZED (BEAKER) (test 0.91 mmol/L 1.12-1.27 L code = 698) PH, BLOOD (BEAKER) (test code = 7.39 1810) BLOOD GAS, [id number] 15:39:00 Test Item Value Reference Range Interpretation [...] code = 1819) 70.0 % SODIUM NA-STAT [id number] 15:39:00 Test Item Value Reference Range Interpretation Comments SODIUM (BEAKER) (test code = 381) 131 meq/L 135-148 L GLUCOSE-STAT [id number] 15:39:00 Test Item Value Reference Range Interpretation Comments GLUCOSE RANDOM (BEAKER) (test code 186 mg/dL 70-110 H = 652) HGB/HCT (H&H) - STAT [id number] 15:39:00 Test Item Value Reference Range Interpretation Comments HEMOGLOBIN (BEAKER) (test code = 7.5 g/dL 12.0-15.0 L 410) HEMATOCRIT (BEAKER) (test code = 22.0 % 36.0-45.0 L 411) POTASSIUM-STAT [id number] 15:38:00 Test Item Value Reference Range Interpretation Comments POTASSIUM (BEAKER) (test code = 5.3 meq/L 3.6-5.5 379) BLOOD GAS, [id number] 15:24:00 Test Item Value Reference Range Interpretation [...] code = 1819) 70.0 % SODIUM NA-STAT [id number] 15:24:00 Test Item Value Reference Range Interpretation Comments SODIUM (BEAKER) (test code = 381) 130 meq/L 135-148 L GLUCOSE-STAT [id number] 15:24:00 Test Item Value Reference Range Interpretation Comments GLUCOSE RANDOM (BEAKER) (test code 189 mg/dL 70-110 H = 652) HGB/HCT (H&H) - STAT [id number] 15:24:00 Test Item Value Reference Range Interpretation Comments HEMOGLOBIN (BEAKER) (test code = 6.7 g/dL 12.0-15.0 L 410) HEMATOCRIT (BEAKER) (test code = 20.0 % 36.0-45.0 L 411) POTASSIUM-STAT [id number] 15:23:00 Test Item Value Reference Range Interpretation Comments POTASSIUM (BEAKER) (test code = 5.4 meq/L 3.6-5.5 379) BLOOD GAS, [id number] 15:07:00 Test Item Value Reference Range Interpretation [...] code = 1819) 70.0 % SODIUM NA-STAT [id number] 15:07:00 Test Item Value Reference Range Interpretation Comments SODIUM (BEAKER) (test code = 381) 129 meq/L 135-148 L GLUCOSE-STAT [id number] 15:07:00 Test Item Value Reference Range Interpretation Comments GLUCOSE RANDOM (BEAKER) (test code 172 mg/dL 70-110 H = 652) HGB/HCT (H&H) - STAT [id number] 15:07:00 Test Item Value Reference Range Interpretation Comments HEMOGLOBIN (BEAKER) (test code = 7.1 g/dL 12.0-15.0 L 410) HEMATOCRIT (BEAKER) (test code = 21.0 % 36.0-45.0 L 411) POTASSIUM-STAT [id number] 15:04:00 Test Item Value Reference Range Interpretation Comments POTASSIUM (BEAKER) (test code = 5.0 meq/L 3.6-5.5 379) BLOOD GAS, [id number] 14:21:00 Test Item Value Reference Range Interpretation [...] code = 1819) 70.0 % SODIUM NA-STAT [id number] 14:21:00 Test Item Value Reference Range Interpretation Comments SODIUM (BEAKER) (test code = 381) 133 meq/L 135-148 L GLUCOSE-STAT [id number] 14:21:00 Test Item Value Reference Range Interpretation Comments GLUCOSE RANDOM (BEAKER) (test code 160 mg/dL 70-110 H = 652) HGB/HCT (H&H) - STAT [id number] 14:21:00 Test Item Value Reference Range Interpretation Comments HEMOGLOBIN (BEAKER) (test code = 7.5 g/dL 12.0-15.0 L 410) HEMATOCRIT (BEAKER) (test code = 22.0 % 36.0-45.0 L 411) POTASSIUM-STAT [id number] 14:20:00 Test Item Value Reference Range Interpretation Comments POTASSIUM (BEAKER) (test code = 4.7 meq/L 3.6-5.5 379) BLOOD GAS, [id number] 13:58:00 Test Item Value Reference Range Interpretation [...] code = 1819) 80.0 % SODIUM NA-STAT [id number] 13:58:00 Test Item Value Reference Range Interpretation Comments SODIUM (BEAKER) (test code = 381) 132 meq/L 135-148 L GLUCOSE-STAT [id number] 13:58:00 Test Item Value Reference Range Interpretation Comments GLUCOSE RANDOM (BEAKER) (test code 166 mg/dL 70-110 H = 652) HGB/HCT (H&H) - STAT [id number] 13:58:00 Test Item Value Reference Range Interpretation Comments HEMOGLOBIN (BEAKER) (test code = 7.5 g/dL 12.0-15.0 L 410) HEMATOCRIT (BEAKER) (test code = 22.0 % 36.0-45.0 L 411) POTASSIUM-STAT [id number] 13:57:00 Test Item Value Reference Range Interpretation Comments POTASSIUM (BEAKER) (test code = 4.7 meq/L 3.6-5.5 379) BLOOD GAS, [id number] 13:35:00 Test Item Value Reference Range Interpretation [...] (test code = 1819) 80.0 % GLUCOSE-STAT [id number] 13:35:00 Test Item Value Reference Range Interpretation Comments GLUCOSE RANDOM (BEAKER) (test code 130 mg/dL 70-110 H = 652) HGB/HCT (H&H) - STAT [id number] 13:35:00 Test Item Value Reference Range Interpretation Comments HEMOGLOBIN (BEAKER) (test code = 6.7 g/dL 12.0-15.0 L 410) HEMATOCRIT (BEAKER) (test code = 20.0 % 36.0-45.0 L 411) SODIUM NA-STAT [id number] 13:35:00 Test Item Value Reference Range Interpretation Comments SODIUM (BEAKER) (test code = 381) 133 meq/L 135-148 L POTASSIUM-STAT [id number] 13:34:00 Test Item Value Reference Range Interpretation Comments POTASSIUM (BEAKER) (test code = 4.2 meq/L 3.6-5.5 379) BLOOD GAS, [id number] 13:16:00 Test Item Value Reference Range Interpretation [...] code = 1819) 80.0 % SODIUM NA-STAT [id number] 13:16:00 Test Item Value Reference Range Interpretation Comments SODIUM (BEAKER) (test code = 381) 133 meq/L 135-148 L HGB/HCT (H&H) - STAT [id number] 13:16:00 Test Item Value Reference Range Interpretation Comments HEMOGLOBIN (BEAKER) (test code = 6.3 g/dL 12.0-15.0 L 410) HEMATOCRIT (BEAKER) (test code = 19.0 % 36.0-45.0 L 411) CALCIUM, [id number] 13:15:00 Test Item Value Reference Range Interpretation Comments CALCIUM IONIZED (BEAKER) (test 0.98 mmol/L 1.12-1.27 L code = 698) PH, BLOOD (BEAKER) (test code = 7.34 1810) BLOOD GAS, [id number] 13:15:00 Test Item Value Reference Range Interpretation [...] (test code = 1819) 80.0 % GLUCOSE-STAT [id number] 13:14:00 Test Item Value Reference Range Interpretation Comments GLUCOSE RANDOM (BEAKER) (test code = 92 mg/dL 70-110 652) POTASSIUM-STAT [id number] 13:14:00 Test Item Value Reference Range Interpretation Comments POTASSIUM (BEAKER) (test code = 3.9 meq/L 3.6-5.5 379) BLOOD GAS, [id number] 10:54:00 Test Item Value Reference Range Interpretation [...] 1819) 100.0 % HGB/HCT (H&H) - STAT [id number] 10:54:00 Test Item Value Reference Range Interpretation Comments HEMOGLOBIN (BEAKER) (test code = 9.3 g/dL 12.0-15.0 L 410) HEMATOCRIT (BEAKER) (test code = 27.0 % 36.0-45.0 L 411) SODIUM NA-STAT [id number] 10:54:00 Test Item Value Reference Range Interpretation Comments SODIUM (BEAKER) (test code = 381) 132 meq/L 135-148 L GLUCOSE-STAT [id number] 10:52:00 Test Item Value Reference Range Interpretation Comments GLUCOSE RANDOM (AKER) (test code = 94 mg/dL 70-110 652) POTASSIUM-STAT [id number] 10:52:00 Test Item Value Reference Range Interpretation Comments POTASSIUM (BEAKER) (test code = 4.0 meq/L 3.6-5.5 379) HEMOGLOBIN [id number] 09:50:00 Test Item Value Reference Range Interpretation Comments HEMOGLOBIN A1C (BEAKER) (test code = 10.6 % 4.3-6.1 H 368) PLATELET AGGREGATION: FUNCTION [id number] 08:27:00 Test Item Value Reference Range Interpretation Comments WEAK ADP 63 % 60-91 RESULT([facility]) (test code = 2135) PLATELET FUNCTION 60-100% indicates SCREEN INTERP ([facility]) normal platelet (test code = 2173) function [id number] Toshia Post MD ([facility]) (test code = (electronic signature) 0882) PLATELET COUNT AGG 198 K/CU MM 150-450 ([facility]) (test code = 2656) for patients on clopidogrel in past two weeksPOCT-GLUCOSE [id number] 08:11:00 Test Item Value Reference Range Interpretation Comments POC-GLUCOSE METER 116 mg/dL 70-[address] [facility] [address] ([facility]) (test code = [place] 1538) [address] [id number] 07:10:00 Test Item Value Reference Range Interpretation Comments PHOSPHORUS (AKER) (test code = 4.5 mg/dL 2.3-4.7 604) [id number] 07:10:00 Test Item Value Reference Range Interpretation Comments MAGNESIUM (BEAKER) (test code = 2.1 mg/dL 1.6-2.6 627) BASIC METABOLIC [id number] 07:10:00 Test Item Value Reference Range Interpretation [...] = 700) CBC W/PLT COUNT & AUTO [id number] 06:46:00 Test Item Value Reference Range Interpretation [...] PERCENT (BEAKER) (test code = 2801) CALCIUM, [id number] 06:40:00 Test Item Value Reference Range Interpretation Comments CALCIUM IONIZED (BEAKER) (test 1.06 mmol/L 1.12-1.27 L code = 698) PH, BLOOD (BEAKER) (test code = 7.39 1810) POCT-GLUCOSE [id number] 23:22:00 Test Item Value Reference Range Interpretation Comments POC-GLUCOSE METER 165 mg/dL 70-[address] [facility] [address] (BEAKER) (test code = [place] 1538) [address] URINE PROTEIN ELECTROPHORESIS, [id number] 18:02:00 Test Item Value Reference Range Interpretation Comments PROTEIN, URINE 305 mg/dL 0-14 H (BEAKER) (test code = 1569) ALBUMIN URINE ELP 70.9 % (BEAKER) (test code = 1018) GAMMA GLOBULIN URINE 29.1 % (BEAKER) (test code = 1015) UPEP, ID-438 ([facility]) No monoclonal bands (test code = 2604) detected. [id number] Rocio Galindo MD ([facility]) (test code = (electronic signature) 2605) PROTEIN ELECTROPHORESIS, [id number] 17:57:00 Test Item Value Reference Range Interpretation [...] all globulin fractions. No monoclonal bands detected. [id number] Rocio Galindo MD ([facility]) (test code = (electronic signature) 2616) PROTEIN TOTAL SERUM, 5.5 gm/dL 6.0-8.3 L SPEP (BEAKER) (test code = 2660) POCT-GLUCOSE [id number] 17:15:00 Test Item Value Reference Range Interpretation Comments POC-GLUCOSE METER 209 mg/dL 70-[address] [facility] [address] ([facility]) (test code = [place] 1538) [address] BLOOD GAS, [id number] 15:54:00 Test Item Value Reference Range Interpretation [...] 36.0 % RAD, CHEST, 1 VIEW, NON [id number] 14:07:00Reason for exam:->SOB, hypoxemiaShould this be performed [...] Regan Cespedes Verified Date/Time: 05/19/2017 14:07:07 Reading Location:[address] Consult Reading Room POCT-GLUCOSE [id number] 11:26:00 Test Item Value Reference Range Interpretation Comments POC-GLUCOSE METER 262 mg/dL 70-110 H TESTED AT [place] [address] ([facility]) (test code = [place] 1538) [address] POCT-GLUCOSE [id number] 07:37:00 Test Item Value Reference Range Interpretation Comments POC-GLUCOSE METER 170 mg/dL 70-[address] [facility] [address] ([facility]) (test code = [place] 1538) [address] CALCIUM, [id number] 06:06:00 Test Item Value Reference Range Interpretation Comments CALCIUM IONIZED (BEAKER) (test 1.05 mmol/L 1.12-1.27 L code = 698) PH, BLOOD (BEAKER) (test code = 7.41 1810) [id number] 05:38:00 Test Item Value Reference Range Interpretation Comments PHOSPHORUS (BEAKER) (test code = 3.9 mg/dL 2.3-4.7 604) [id number] 05:38:00 Test Item Value Reference Range Interpretation Comments MAGNESIUM (BEAKER) (test code = 2.2 mg/dL 1.6-2.6 627) BASIC METABOLIC [id number] 05:38:00 Test Item Value Reference Range Interpretation [...] PATIEN TS. CBC W/PLT COUNT & AUTO [id number] 05:09:00 Test Item Value Reference Range Interpretation [...] PERCENT (BEAKER) (test code = 2801) POCT-GLUCOSE [id number] 22:08:00 Test Item Value Reference Range Interpretation Comments POC-GLUCOSE METER 263 mg/dL 70-[address] [facility] [address] [facility] (test code = [place] 1538) [address] POCT-GLUCOSE [id number] 17:20:00 Test Item Value Reference Range Interpretation Comments POC-GLUCOSE METER 233 mg/dL 70-[address] [facility] [address] (BEAKER) (test code = [place] 1538) [address] POCT-GLUCOSE [id number] 08:28:00 Test Item Value Reference Range Interpretation Comments POC-GLUCOSE METER 154 mg/dL 70-[address] [facility] [address] (BEAKER) (test code = [place] 1539) [address] BASIC METABOLIC [id number] 06:41:00 Test Item Value Reference Range Interpretation [...] S NOT APPLICABLE FOR DIALYSIS PATIEN TS. [id number] 06:35:00 Test Item Value Reference Range Interpretation Comments PHOSPHORUS (BEAKER) (test code = 4.1 mg/dL 2.3-4.7 604) [id number] 06:35:00 Test Item Value Reference Range Interpretation Comments MAGNESIUM (BEAKER) (test code = 2.1 mg/dL 1.6-2.6 627) CALCIUM, [id number] 06:22:00 Test Item Value Reference Range Interpretation Comments CALCIUM IONIZED (BEAKER) (test 1.10 mmol/L 1.12-1.27 L code = 698) PH, BLOOD (BEAKER) (test code = 7.38 1810) CBC W/PLT COUNT & AUTO [id number] 06:04:00 Test Item Value Reference Range Interpretation [...] PERCENT (BEAKER) (test code = 2801) POCT-GLUCOSE [id number] 03:44:00 Test Item Value Reference Range Interpretation Comments POC-GLUCOSE METER 220 mg/dL 70-110 H TESTED AT [place] [address] ([facility]) (test code = [facility] [place] 1538) [address] POCT-GLUCOSE [id number] 18:27:00 Test Item Value Reference Range Interpretation Comments POC-GLUCOSE METER 256 mg/dL 70-110 H TESTED AT [place] [address] ([facility]) (test code = [facility] [place] 1538) [address] POCT-GLUCOSE [id number] 15:45:00 Test Item Value Reference Range Interpretation Comments POC-GLUCOSE METER 278 mg/dL 70-110 H TESTED AT [place] [address] ([facility]) (test code = [facility] [place] 1538) [address] POCT-GLUCOSE [id number] 13:22:00 Test Item Value Reference Range Interpretation Comments POC-GLUCOSE METER 278 mg/dL 70-110 H TESTED AT [place] [address] ([facility]) (test code = [facility] 1538) [address] PLATELET AGGREGATION: FUNCTION [id number] 13:18:00 Test Item Value Reference Range Interpretation Comments WEAK ADP 66 % 60-91 RESULT([facility]) (test code = 2135) PLATELET FUNCTION 60-100% indicates SCREEN INTERP ([facility]) normal platelet (test code = 2173) function [id number] Rigoberto Duenas MD ([facility]) (test code = (electronic signature) 8115) PLATELET COUNT AGG 204 K/CU MM 150-450 ([facility]) (test code = 2656) POCT-GLUCOSE [id number] 08:27:00 Test Item Value Reference Range Interpretation Comments POC-GLUCOSE METER 189 mg/dL 70-110 H TESTED AT [place] [address] ([facility]) (test code = [facility] 1538) [address] CALCIUM, [id number] 06:12:00 Test Item Value Reference Range Interpretation Comments CALCIUM IONIZED ([facility]) (test 1.07 mmol/L 1.12-1.27 L code = 698) PH, BLOOD ([facility]) (test code = 7.36 1810) [id number] 05:43:00 Test Item Value Reference Range Interpretation Comments PHOSPHORUS ([facility]) (test code = 3.6 mg/dL 2.3-4.7 604) [id number] 05:43:00 Test Item Value Reference Range Interpretation Comments MAGNESIUM (BEAKER) (test code = 2.1 mg/dL 1.6-2.6 627) BASIC METABOLIC [id number] 05:43:00 Test Item Value Reference Range Interpretation [...] PATIEN TS. CBC W/PLT COUNT & AUTO [id number] 05:05:00 Test Item Value Reference Range Interpretation [...] PERCENT (BEAKER) (test code = 2801) POCT-GLUCOSE [id number] 21:32:00 Test Item Value Reference Range Interpretation Comments POC-GLUCOSE METER 176 mg/dL 70-110 H TESTED AT [place] [address] ([facility]) [facility] 1538) [address] POCT-GLUCOSE [id number] 20:27:00 Test Item Value Reference Range Interpretation Comments POC-GLUCOSE METER 161 mg/dL 70-110 H TESTED AT [place] [address] ([facility]) (test code = JULIANO Osborne [facility] 1538) [address] POCT-GLUCOSE [id number] 18:23:00 Test Item Value Reference Range Interpretation Comments POC-GLUCOSE METER 185 mg/dL 70-110 H TESTED AT [place] [address] ([facility]) (test code = JULIANO Osborne [facility] 1538) [address] POCT-GLUCOSE [id number] 13:26:00 Test Item Value Reference Range Interpretation Comments POC-GLUCOSE METER 282 mg/dL 70-[address] [facility] [address] (BEAKER) (test code = JULIANO Osborne [facility] 1538) [address] URINE [id number] 10:12:00 Test Item Value Reference Range Interpretation Comments CULTURE (BEAKER) (test >100,000 col/mL skin code = 1095) todd POCT-GLUCOSE [id number] 09:01:00 Test Item Value Reference Range Interpretation Comments POC-GLUCOSE METER 268 mg/dL 70-[address] [facility] [address] (BEAKER) (test code = [facility] Dylon [facility] 1538) [address] CALCIUM, [id number] 05:39:00 Test Item Value Reference Range Interpretation Comments CALCIUM IONIZED (BEAKER) (test 0.84 mmol/L 1.12-1.27 L code = 698) PH, BLOOD (BEAKER) (test code = 7.35 1700) BASIC METABOLIC [id number] 05:07:00 Test Item Value Reference Range Interpretation [...] S NOT APPLICABLE FOR DIALYSIS PATIEN TS. [id number] 05:06:00 Test Item Value Reference Range Interpretation Comments PHOSPHORUS (BEAKER) (test code = 3.2 mg/dL 2.3-4.7 604) [id number] 05:06:00 Test Item Value Reference Range Interpretation Comments MAGNESIUM (BEAKER) (test code = 2.3 mg/dL 1.6-2.6 627) CBC W/PLT COUNT & AUTO [id number] 04:42:00 Test Item Value Reference Range Interpretation [...] = 2801) RHEUMATOID FACTOR AB, REFLEX TO [id number] 01:52:00 Test Item Value Reference Range Interpretation Comments RHEUMATOID FACTOR ([facility]) (test Negative code = 573) POCT-GLUCOSE [id number] 21:57:00 Test Item Value Reference Range Interpretation Comments POC-GLUCOSE METER 105 mg/dL 70-[address] [facility] [address] (ROBERT) (test code = JULIANO Osborne [place] [id number]) [address] POCT-GLUCOSE [id number] 18:11:00 Test Item Value Reference Range Interpretation Comments POC-GLUCOSE METER 312 mg/dL 70-110 H Notified Dylon Hassan MD/TESTED (ROBERT) (test code = AT [facility] [address] [facility] 1538) [facility] 7703 0 PET, CARDIAC PERFUSION MULTIPLE STUDIES, REST AND [id number] 16:28:00 Reason for exam:->pvcs, known cadFINAL REPORT PROCEDURE: Rest/Stress MYOCARDIAL PERFUSION PET with regadenoson\\XA9\\ CPT CODE: 83300 INDICATION: Defined extent and severity of known [...] is 23%. LVEF at stress is 36%. [facility] CT images revealed a right pleural effusion [...] pericardial effusions. 7. No previous [facility] study for comparison. NONINVASIVE RISK STRATIFICATION: The above findings are considered high risk (>3% annual mortality rate) based on the following criteria: - Severe resting left ventricular dysfunction (LVEF 35%)- Stress-induced large perfusion defect (particularly if anterior)(JACC. 2012;59(9):857-81.) Signed: Natan Whaley Verified Date/Time: 05/15/2017 16:28:12 Reading Location: [address] ReadingRoom RAD, CHEST, 1 VIEW, NON [id number] 15:56:00Reason for exam:->SOBShould this be performed at the bedside?->YesFINAL REPORT Comparison: 05/14/2017 TECHNIQUE: Single view of the chest FINDINGS: There is a small right pleural effusion with nonspecific airspace disease. This is unchanged. Left lung is grossly clear. Cardiac silhouette is enlarged. IMPRESSION: 1. No acute cardiopulmonary disease. Signed: Sixto Monk MDReport Verified Date/Time: 05/15/2017 15:56:39 [facility] POCT-GLUCOSE [id number] 12:54:00 Test Item Value Reference Range Interpretation Comments POC-GLUCOSE METER 308 mg/dL 70-110 H Notified Dylon Hassan MD/NATHAN (ROBERT) (test code = AT [facility] [address] [facility] 1538) [facility] 7703 0 U/S, RENAL WITH [id number] 11:04:00Reason for exam:->tracy, htnShould this be performed [...] in the resistive indices throughout. Signed: Anahi Hobbseport Verified Date/Time: 05/15/2017 11:04:01 Reading Location: [address] Ultrasound Reading Room ANA TITER AND [id number] 10:57:00 Test Item Value Reference Range Interpretation Comments ROGER TITER (BEAKER) (test code = :160 1541) ROGER PATTERN (BEAKER) (test code = Speckled 1781) ANTI-NUCLEAR ANTIBODY (ROGER)2017-05-15 10:56:00 Test Item Value Reference Range Interpretation Comments ANTI-NUCLEAR ANTIBODY (ROGER) (BEAKER) Positive Negative A (test code = 418) CALCIUM, [id number] 06:00:00 Test Item Value Reference Range Interpretation Comments CALCIUM IONIZED (BEAKER) (test 1.07 mmol/L 1.12-1.27 L code = 698) PH, BLOOD (BEAKER) (test code = 7.28 1810) HEPATITIS PANEL, [id number] 05:01:00 Test Item Value Reference Range Interpretation Comments HEPATITIS A IGM ANTIBODY (BEAKER) Nonreactive Nonreactive (test code = 498) HEPATITIS B CORE IGM ANTIBODY Nonreactive Nonreactive (BEAKER) (test code = 645) HEPATITIS C ANTIBODY (BEAKER) Nonreactive Nonreactive (test code = 367) HEPATITIS B SURFACE ANTIGEN (2) Nonreactive Nonreactive (BEAKER) (test code = 2585) BASIC METABOLIC [id number] 04:48:00 Test Item Value Reference Range Interpretation [...] NOT APPLICABLE FOR DIALYSIS PATIEN TS. URIC [id number] 04:41:00 Test Item Value Reference Range Interpretation Comments URIC ACID (BEAKER) (test code = 10.3 mg/dL 2.6-7.2 H 773) [id number] 04:41:00 Test Item Value Reference Range Interpretation Comments MAGNESIUM (BEAKER) (test code = 2.0 mg/dL 1.6-2.6 627) [id number] 04:41:00 Test Item Value Reference Range Interpretation Comments PHOSPHORUS (BEAKER) (test code = 4.2 mg/dL 2.3-4.7 604) COMPLEMENT COMPONENT [id number] 04:38:00 Test Item Value Reference Range Interpretation Comments C4 COMPLEMENT (BEAKER) (test code = 28 mg/dL 15-57 394) COMPLEMENT COMPONENT [id number] 04:38:00 Test Item Value Reference Range Interpretation Comments C3 COMPLEMENT (BEAKER) (test code = 103 mg/dL 82-193 393) CBC W/PLT COUNT & AUTO [id number] 04:22:00 Test Item Value Reference Range Interpretation [...] PERCENT (BEAKER) (test code = 2801) POCT-GLUCOSE [id number] 21:46:00 Test Item Value Reference Range Interpretation Comments POC-GLUCOSE METER 173 mg/dL 70-[address] [facility] [address] (BEAKER) (test code = [place] 1538) [id number] POCT-GLUCOSE [id number] 21:46:00 Test Item Value Reference Range Interpretation Comments POC-GLUCOSE METER 154 mg/dL 70-110 H TESTED AT [place] [address] ([facility]) (test code = JULIANO Osborne [facility] 1538) [address] POCT-GLUCOSE [id number] 18:17:00 Test Item Value Reference Range Interpretation Comments POC-GLUCOSE METER 175 mg/dL 70-110 H TESTED AT [place] [address] ([facility]) (test code = JULIANO Osborne [facility] 1538) [address] RAD, CHEST, 1 VIEW, NON [id number] 14:56:00Reason for exam:->SOBShould this be performed at the bedside?->YesFINAL REPORT INDICATION: SOB COMPARISON: May 13, 2017 TECHNIQUE: Chest radiograph, single view, portable technique. FINDINGS / IMPRESSION: Enlarged heart shadow, small rightpleural effusion, and pulmonary venous congestion, again demonstrated. No pneumothorax or consolidation. Osseous structures unremarkable. Signed: Thania Dwyer MDReport Verified Date/Time: 05/14/2017 14:56:58 Reading Location: [facility] Mammo Reading Room POCT-GLUCOSE [id number] 12:18:00 Test Item Value Reference Range Interpretation Comments POC-GLUCOSE METER 313 mg/dL 70-110 H TESTED AT [place] [address] ([facility]) (test code = JULIANO Osborne [facility] 1538) [address] HIV-1 ANTIGEN WITH HIV-1/2 [id number] 12:07:00 Test Item Value Reference Range Interpretation Comments HIV-1 ANTIGEN WITH HIV 1\\T\\2 Nonreactive Nonreactive ANTIBODY (2) ([facility]) (test code = 2586) CALCIUM, [id number] 06:37:00 Test Item Value Reference Range Interpretation Comments CALCIUM IONIZED ([facility]) (test 1.08 mmol/L 1.12-1.27 L code = 698) PH, BLOOD ([facility]) (test code = 7.25 1810) BASIC METABOLIC [id number] 06:26:00 Test Item Value Reference Range Interpretation [...] pg/mL 0-100 H (test code = 700) [id number] 06:25:00 Test Item Value Reference Range Interpretation Comments PHOSPHORUS (BEAKER) (test code = 5.7 mg/dL 2.3-4.7 H 604) [id number] 06:25:00 Test Item Value Reference Range Interpretation Comments MAGNESIUM (BEAKER) (test code = 1.5 mg/dL 1.6-2.6 L 627) CBC W/PLT COUNT & AUTO [id number] 06:07:00 Test Item Value Reference Range Interpretation [...] PERCENT (BEAKER) (test code = 2801) POCT-GLUCOSE [id number] 22:38:00 Test Item Value Reference Range Interpretation Comments POC-GLUCOSE METER 262 mg/dL 70-[address] [facility] [address] (BEAKER) (test code = [place] 1538) [id number] PROTEIN, RANDOM [id number] 22:18:00 Test Item Value Reference Range Interpretation Comments PROTEIN, URINE (BEAKER) (test code 641 mg/dL 0-14 H = 1569) CREATININE, RANDOM [id number] 22:07:00 Test Item Value Reference Range Interpretation Comments CREATININE URINE (BEAKER) (test 124.9 mg/dL code = 375) Reference Range: No NormalsURINALYSIS W/ [id number] 22:03:00 Test Item Value Reference Range Interpretation [...] 1585) SOURCE(BEAKER) (test code = Urine, Voided 5061) [id number] 19:49:00 Test Item Value Reference Range Interpretation Comments SODIUM (BEAKER) (test 136 meq/L 136-145 code = 381) POTASSIUM (BEAKER) 5.1 meq/L 3.5-5.1 Specimen slightly (test code = 379) hemolyzed CHLORIDE (BEAKER) 104 meq/L 98-107 (test code = 382) CO2 (BEAKER) (test 25 meq/L 22- code = 355) Call if K > 5POCT-GLUCOSE [id number] 11:37:00 Test Item Value Reference Range Interpretation Comments POC-GLUCOSE METER 293 mg/dL 70-[address] [facility] [address] (BEAKER) (test code = [place] 1538) [address] RAD, CHEST, 1 VIEW, NON [id number] 10:22:00Reason for exam:->SOBShould this be performed at the bedside?->YesFINAL REPORT Chest one view Discussion: There is cardiomegaly and interstitial congestion. A small right-sided effusion is noted. No pneumothorax. IMPRESSIONS: Suspected CHF. Signed: Jeannette Nava Verified Date/Time: 05/13/2017 10:22:34 Reading Location: [facility] Radiology Reading Room POCT-GLUCOSE METER 2017-05-13 08:34:00 Test Item Value Reference Range Interpretation Comments POC-GLUCOSE METER 178 mg/dL 70-[address] [facility] ([facility] (test code = JULIANO Osborne [place] 1538) [address] POCT-GLUCOSE [id number] 06:53:00 Test Item Value Reference Range Interpretation Comments POC-GLUCOSE METER 167 mg/dL 70-[address] [facility] ([facility] (test code = JULIANO Osborne [facility] 1538) [address] [id number] 04:48:00 Test Item Value Reference Range Interpretation Comments BLOOD UREA NITROGEN (BEAKER) (test 36 mg/dL 7-21 H code = 354) [id number] 04:48:00 Test Item Value Reference Range Interpretation Comments SODIUM (BEAKER) (test code = 381) 139 meq/L 136-145 POTASSIUM (BEAKER) (test code = 5.2 meq/L 3.5-5.1 H 379) CHLORIDE (BEAKER) (test code = 382) 109 meq/L 98-107 H CO2 (BEAKER) (test code = 355) 23 meq/L 22-29 [id number] 04:48:00 Test Item Value Reference Range Interpretation [...] WBC 0-0 (BEAKER) (test code = 413) [id number] 23:29:00 Test Item Value Reference Range Interpretation Comments ACTIVATED CLOTTING TIME 136 sec TEST ED AT [place] [address] ([facility]) (test code = JULIANO RUTH [facility]) [id number] 20:13:00 Test Item Value Reference Range Interpretation Comments ACTIVATED CLOTTING TIME 175 sec TEST ED AT [place] [address] ([facility]) (test code = JULIANO RUTH [facility]) [id number] 18:36:00 Test Item Value Reference Range Interpretation Comments ACTIVATED CLOTTING TIME 202 sec TEST ED AT [place] [address] (BEAKER) (test code = JULIANO Osborne [place] 441) [address] [id number] 18:03:00 Test Item Value Reference Range Interpretation Comments ACTIVATED CLOTTING TIME 208 sec TEST ED AT [facility] [address] (BEAKER) (test code = JULIANO Osborne [place] 441) [address] BASIC METABOLIC [id number] 11:57:00 Test Item Value Reference Range Interpretation [...] NOT APPLICABLE FOR DIALYSIS PATIEN TS. PROTHROMBIN [id number] 11:15:00 Test Item Value Reference Range Interpretation [...] if on CoumadinCBC W/PLT COUNT & AUTO [id number] 11:01:00 Test Item Value Reference Range Interpretation [...] PERCENT (BEAKER) (test code = 2801) POCT-GLUCOSE [id number] 12:35:00 Test Item Value Reference Range Interpretation Comments POC-GLUCOSE METER 249 mg/dL 70-[address] [facility] [address] (BEAKER) (test code = JULIANO Osborne [facility] 1538) [address] POCT-GLUCOSE [id number] 09:10:00 Test Item Value Reference Range Interpretation Comments POC-GLUCOSE METER 155 mg/dL 70-[address] [facility] [address] (BEAKER) (test code = JULIANO Osborne [facility] 1538) [address] BASIC METABOLIC [id number] 05:39:00 Test Item Value Reference Range Interpretation [...] S NOT APPLICABLE FOR DIALYSIS PATIEN TS. [id number] 05:27:00 Test Item Value Reference Range Interpretation Comments PHOSPHORUS (BEAKER) (test code = 5.0 mg/dL 2.3-4.7 H 604) [id number] 05:27:00 Test Item Value Reference Range Interpretation Comments MAGNESIUM (BEAKER) (test code = 1.6 mg/dL 1.6-2.6 627) POCT-GLUCOSE [id number] 05:25:00 Test Item Value Reference Range Interpretation Comments POC-GLUCOSE METER 144 mg/dL 70-110 H TESTED AT [place] [address] ([facility]) (test code = JULIANO Osborne [facility] 1538) [address] PROTHROMBIN [id number] 04:58:00 Test Item Value Reference Range Interpretation Comments PROTIME ([facility]) (test code = 14.2 seconds 11.7-14.7 759) INR ([facility]) (test code = 370) 1.1 <=5.9 RECOMMENDED COUMADIN/WARFARIN INR THERAPY RANGESSTANDARD DOSE: 2.0 - 3.0 Includes: PROPHYLAXIS forvenous thrombosis, systemic embolization; TREATMENT for venous thrombosis and/or pulmonary embolus.HIGH RISK: Target INR is 2.5-3.5 for patients with mechanical heart valves.POCT-GLUCOSE [id number] 23:55:00 Test Item Value Reference Range Interpretation Comments POC-GLUCOSE METER 86 mg/dL 70-110 TESTED AT [place] [address] ([facility]) (test code = JULIANO Osborne [facility] [address] 1538) B-TYPE NATRIURETIC FACTOR (BNP)2017-04-22 18:13:00 Test Item Value Reference Range Interpretation Comments B-TYPE NATRIURETIC PEPTIDE 1203 pg/mL 0-100 H ([facility]) (test code = 700) POCT-GLUCOSE [id number] 17:36:00 Test Item Value Reference Range Interpretation Comments POC-GLUCOSE METER 259 mg/dL 70-110 H TESTED AT [place] [address] ([facility]) (test code = JULIANO Osborne [facility] 1538) [address] HEMOGLOBIN [id number] 14:24:00 Test Item Value Reference Range Interpretation Comments HEMOGLOBIN A1C ([facility]) (test code = 10.5 % 4.3-6.1 H 368) POCT-GLUCOSE [id number] 12:34:00 Test Item Value Reference Range Interpretation Comments POC-GLUCOSE METER 207 mg/dL 70-110 H TESTED AT [place] [address] ([facility]) (test code = JULIANO Osborne [facility] 1538) [address] [id number] 07:53:00 Test Item Value Reference Range Interpretation Comments PHOSPHORUS ([facility]) (test code = 3.9 mg/dL 2.3-4.7 604) [id number] 07:53:00 Test Item Value Reference Range Interpretation Comments MAGNESIUM ([facility]) (test code = 1.6 mg/dL 1.6-2.6 627) BASIC METABOLIC [id number] 07:53:00 Test Item Value Reference Range Interpretation [...] NOT APPLICABLE FOR DIALYSIS PATIEN TS. TROPONIN [id number] 07:29:00 Test Item Value Reference Range Interpretation [...] acidosis, acute neurological disease, and persistent tachyarrhythmia.PROTHROMBIN [id number] 07:01:00 Test Item Value Reference Range Interpretation Comments PROTIME (BEAKER) (test code = 13.8 seconds 11.7-14.7 759) INR (BEAKER) (test code = 370) 1.1 <=5.9 RECOMMENDED COUMADIN/WARFARIN INR THERAPY RANGESSTANDARD DOSE: 2.0 - 3.0 Includes: PROPHYLAXIS forvenous thrombosis, systemic embolization; TREATMENT for venous thrombosis and/or pulmonary embolus.HIGH RISK: Target INR is 2.5-3.5 for patients with mechanical heart valves.POCT-GLUCOSE [id number] 06:28:00 Test Item Value Reference Range Interpretation Comments POC-GLUCOSE METER 198 mg/dL 70-[address] [facility] [address] ([facility]) (test code = [facility] 1538) [address] CREATINE KINASE (CK), TOTAL AND [id number] 00:49:00 Test Item Value Reference Range Interpretation Comments CREATINE KINASE TOTAL ([facility]) 69 U/L 29-200 (test code = 380) CREATINE KINASE-MB ([facility]) (test 4.3 ng/mL 0.0-6.6 code = 750) CREATINE KINASE-MB INDEX ([facility]) 6.2 % (test code = 395) CK-MB Reference Range:<6.7 Normal6.7-10.0 Borderline>10.0 AbnormalTROPONIN [id number] 00:49:00 Test Item Value Reference Range Interpretation Comments TROPONIN I ([facility]) (test code = 0.05 ng/mL 0.00-0.03 H [...] acidosis, acute neurological disease, and persistent tachyarrhythmia.POCT-GLUCOSE [id number] 20:44:00 Test Item Value Reference Range Interpretation Comments POC-GLUCOSE METER 269 mg/dL 70-[address] [facility] [address] ([facility]) (test code = [facility] 1538) [address]
[2020-01-10 18:07] LABS: Absolute Lymphocytes (CBC) 1.8 K/uL (0.7-4.9); Basophils % 0.9 % (0-1.3); Hematocrit 24.3 % (36.0-45.0); Lymphocytes % 29.3 % (15.3-44.8); MPV 7.9 fL (7.6-11.3); RBC Red Blood Cell Count 2.59 M/uL (3.86-4.86)
[2020-01-10 18:08] LABS: Protime INR 1.2
--- NOTE | 2020-01-10 18:27 | ER ---
Nurse's Notes [facility] Name: Christy Priest Age: 64 yrs Sex: Female : 1955 Arrival Date: 01/10/2020 Time: 16:48 Bed 23 Private MD: Diagnosis: Chest pain, unspecified;Pleural effusion in conditions classified elsewhere-RIGHT LOWER;Anemia, unspecified;End stage renal disease;Essential (primary) hypertension Presentation: 01/09 16:48 Chief complaint: EMS states: "the pt was about 15 min into her dialysis when she jd3 started to have chest pain. we arrived and she was reporting pain of a 7/10. we started a 20 G IV tot he right AC and gave 324 aspirin. by the time we got here she said most all over pain was gown and she was feeling better. she did report that she recently did come to the hospital with a cardiac related problem.". Coronavirus screen: At this time, the client does not indicate any symptoms associated with coronavirus-19. Ebola Screen: Patient negative for fever greater than or equal to 101.5 degrees Fahrenheit, and additional compatible Ebola Virus Disease symptoms. Initial Sepsis Screen: Does the patient meet any 2 criteria? No. Patient's initial sepsis screen is negative. Does the patient have a suspected source of infection? No. Patient's initial sepsis screen is negative. Risk Assessment: Do you want to hurt yourself or someone else? Patient reports no desire to harm self or others. Onset of symptoms was January 10, 2020. 16:48 Method Of Arrival: EMS: [facility] jd3 16:48 Acuity: DENNY 2 jd3 Historical: - Allergies: 16:52 Augmentin; jd3 16:52 basil; jd3 16:52 Clindamycin; jd3 16:52 Morphine; jd3 16:52 Nitroglycerin; jd3 16:52 Tramadol HCl; jd3 16:52 Trazodone; jd3 16:52 Vancomycin; jd3 16:52 Vicodin; jd3 - Home Meds: 16:52 gabapentin Oral [Active]; Hydralazine Oral [Active]; insulin [Active]; Lasix Oral jd3 [Active]; Plavix Oral [Active]; - PMHx: 16:52 CHF; COPD; Diabetes - IDDM; ESRD; High Cholesterol; Hypertension; triple bypass; jd3 uterine cancer; - PSHx: 16:52 Heart stents; jd3 - Immunization history:: Adult Immunizations up to date. - Social history:: Smoking status: Patient reports the use of cigarette tobacco products, unknown amount. - Family history:: not pertinent. Screenin:53 Abuse screen: Denies threats or abuse. Nutritional screening: No deficits noted. jd3 Tuberculosis screening: No symptoms or risk factors identified. Fall Risk Ambulatory Aid- None/Bed Rest/Nurse Assist (0 pts). Gait- Normal/Bed Rest/Wheelchair (0 pts) Mental Status- Oriented to own ability (0 pts). Total Merlos Fall Scale indicates No Risk (0-24 pts). Assessment: 16:52 General: Appears in no apparent distress. uncomfortable, Behavior is calm, cooperative, jd3 appropriate for age. Pain: Complains of pain in chest Quality of pain is described as aching, pressure. Neuro: Level of Consciousness is awake, alert, obeys commands, Oriented to person, place, time, situation. Cardiovascular: Reports chest pain, Capillary refill < 3 seconds Patient's skin is warm and dry. Rhythm is irregular. Respiratory: Airway is patent Respiratory effort is even, unlabored, Respiratory pattern is regular, symmetrical, Denies cough, shortness of breath. GI: No signs and/or symptoms were reported involving the gastrointestinal system. : No signs and/or symptoms were reported regarding the genitourinary system. EENT: No signs and/or symptoms were reported regarding the EENT system. Derm: Skin is intact, Skin is dry, Skin is normal, Skin temperature is warm. Musculoskeletal: Circulation, motion, and sensation intact. Range of motion: intact in all extremities. 17:47 Reassessment: Patient appears in no apparent distress at this time. No changes from jd3 previously documented assessment. Patient and/or family updated on plan of care and expected duration. Pain level reassessed. Patient is alert, oriented x 3, equal unlabored respirations, skin warm/dry/pink. Patient states feeling better. 19:01 Reassessment: Patient appears in no apparent distress at this time. Patient and/or d3 family updated on plan of care and expected duration. Pain level reassessed. Patient is alert, oriented x 3, equal unlabored respirations, skin warm/dry/pink. awaiting admission. 19:54 Reassessment: Patient appears in no apparent distress at this time. Patient and/or jd3 family updated on plan of care and expected duration. Pain level reassessed. Patient is alert, oriented x 3, equal unlabored respirations, skin warm/dry/pink. report given to Ngoc VANEGAS nurse for room 218. Vital Signs: 16:50 BP 149 / 74; Pulse 75; Resp 15 S; Temp 97.7(O); Pulse Ox 100% on 2 lpm NC; Weight 75.75 jd3 kg (R); Height 5 ft. 7 in. (170.18 cm) (R); Pain 3/10; 17:47 BP 165 / 76; Pulse 73; Resp 14 S; Pulse Ox 100% on 2 lpm NC; jd3 19:01 BP 172 / 90; Pulse 73; Resp 13 S; Pulse Ox 100% on 2 lpm NC; jd3 19:54 BP 151 / 73; Pulse 72; Resp 16 S; Pulse Ox 98% on 2 lpm NC; jd3 16:50 Body Mass Index 26.16 (75.75 kg, 170.18 cm) j ED Course: 16:48 Patient arrived in ED. jd3 16:50 Triage completed. jd3 16:50 Arm band placed on. jd3 16:53 Kemal Marcos, RN is Primary Nurse. jd3 16:53 Patient has correct armband on for positive identification. Bed in low position. Call j light in reach. Side rails up X2. Adult w/ patient. nuclear licensing engineer on. Pulse ox on. NIBP on. 16:54 Alessio Parry MD is Attending Physician. carlos 17:04 EKG done, by ED staff, reviewed by Alessio Parry MD. Maintain EMS IV. Dressing intact. jd3 Good blood return noted. Site clean \\T\\ dry. Gauge \\T\\ site: 20 G right AC. 18:16 Notified ED physician of a critical lab result(s). Hemoglobin 7.9. aa5 18:22 XRAY Chest (1 view) In Process Unspecified. EDMS 18:24 Nimesh Barreto DO is Hospitalizing Provider. carlos 19:02 No provider procedures requiring assistance completed. Patient admitted, IV remains in jd3 place. Administered Medications: 19:24 Drug: Heavener 10 mg-325 mg 1 tabs Route: PO; jd3 19:55 Follow up: Response: No adverse reaction jd3 Outcome: 18:26 Decision to Hospitalize by Provider. carlos 19:02 Condition: stable jd3 20:01 Admitted to Med/surg accompanied by michael, via stretcher, room 218, with oxygen, with jd3 chart, Report called to Ngoc VANEGAS 20:01 Instructed on the need for admit, Demonstrated understanding of instructions. 20:16 Patient left the ED. jd3 Signatures: Dispatcher [employer] EDAlessio Encinas MD MD cha Calderon, Audri, RN RN aa5 Kemal Marcos RN RN jd3 Corrections: (The following items were deleted from the chart) 19:28 16:52 Allergies: HYDROCODONE; jd3 jd3 19:54 16:50 BP 149 / 74; Pulse 75bpm; Resp 15bpm; Spontaneous; Pulse Ox 100% RA; Temp 97.7F jd3 Oral; 75.75 kg Reported; Height 5 ft. 7 in. Reported; BMI: 26.1; Pain 3/10; jd3 19:54 17:47 BP 165 / 76; Pulse 73bpm; Resp 14bpm; Spontaneous; Pulse Ox 100% RA; jd3 jd3 19:54 19:01 BP 172 / 90; Pulse 73bpm; Resp 13bpm; Spontaneous; Pulse Ox 100% RA; jd3 jd3
--- NOTE | 2020-01-10 18:27 | EDPHYS ---
Physician Documentation [facility] Name: Christy Priest Age: 64 yrs Sex: Female : 1955 Arrival Date: 01/10/2020 Time: 16:48 Bed 23 Private MD: REILLY Physician Alessio Parry HPI: 01/09 17:54 This 64 yrs old Female presents to ER via EMS with complaints of CHEST PAIN carlos AT BEGINING OF DIALYSIS. 17:54 This 64 yrs old Female presents to ER via EMS with complaints of CHEST PAIN carlos IN DIALYSIS. 17:54 The patient or guardian reports chest pain that is located primarily in the substernal carlos area, epigastric area. Onset: just prior to arrival. The pain does not radiate. Associated signs and symptoms: The patient has no apparent associated signs or symptoms. The chest pain is described as a pressure. Duration: The patient or guardian reports a single episode, that is now resolved. Modifying factors: The symptoms are alleviated by nothing. the symptoms are aggravated by DIALYSIS. Severity of pain: At its worst the pain was moderate in the emergency department the pain has resolved. EMS care prior to arrival includes: supplemental oxygen. The patient has not experienced similar symptoms in the past. Historical: - Allergies: 16:52 Augmentin; jd3 16:52 basil; jd3 16:52 Clindamycin; jd3 16:52 Morphine; jd3 16:52 Nitroglycerin; jd3 16:52 Tramadol HCl; jd3 16:52 Trazodone; jd3 16:52 Vancomycin; jd3 16:52 Vicodin; jd3 - Home Meds: 16:52 gabapentin Oral [Active]; Hydralazine Oral [Active]; insulin [Active]; Lasix Oral jd3 [Active]; Plavix Oral [Active]; - PMHx: 16:52 CHF; COPD; Diabetes - IDDM; ESRD; High Cholesterol; Hypertension; triple bypass; jd3 uterine cancer; - PSHx: 16:52 Heart stents; jd3 - Immunization history:: Adult Immunizations up to date. - Social history:: Smoking status: Patient reports the use of cigarette tobacco products, unknown amount. - Family history:: not pertinent. ROS: 17:54 Constitutional: Negative for fever, chills, and weight loss, Eyes: Negative for injury, carlos pain, redness, and discharge, ENT: Negative for injury, pain, and discharge, Neck: Negative for injury, pain, and swelling, Respiratory: Negative for shortness of breath, cough, wheezing, and pleuritic chest pain, Abdomen/GI: Negative for abdominal pain, nausea, vomiting, diarrhea, and constipation, Back: Negative for injury and pain, : Negative for injury, bleeding, discharge, and swelling, MS/Extremity: Negative for injury and deformity, Skin: Negative for injury, rash, and discoloration, Neuro: Negative for headache, weakness, numbness, tingling, and seizure, Psych: Negative for depression, anxiety, suicide ideation, homicidal ideation, and hallucinations, Allergy/Immunology: Negative for hives, rash, and allergies, Endocrine: Negative for neck swelling, polydipsia, polyuria, polyphagia, and marked weight changes, Hematologic/Lymphatic: Negative for swollen nodes, abnormal bleeding, and unusual bruising. 17:54 Cardiovascular: Positive for chest pain. Exam: 17:54 Constitutional: This is a well developed, well nourished patient who is awake, alert, carlos and in no acute distress. Head/Face: Normocephalic, atraumatic. Eyes: Pupils equal round and reactive to light, extra-ocular motions intact. Lids and lashes normal. Conjunctiva and sclera are non-icteric and not injected. Cornea within normal limits. Periorbital areas with no swelling, redness, or edema. ENT: Nares patent. No nasal discharge, no septal abnormalities noted. Tympanic membranes are normal and external auditory canals are clear. Oropharynx with no redness, swelling, or masses, exudates, or evidence of obstruction, uvula midline. Mucous membranes moist. Neck: Trachea midline, no thyromegaly or masses palpated, and no cervical lymphadenopathy. Supple, full range of motion without nuchal rigidity, or vertebral point tenderness. No Meningismus. Chest/axilla: Normal chest wall appearance and motion. Nontender with no deformity. No lesions are appreciated. Cardiovascular: Regular rate and rhythm with a normal S1 and S2. No gallops, murmurs, or rubs. Normal PMI, no JVD. No pulse deficits. Respiratory: Lungs have equal breath sounds bilaterally, clear to auscultation and percussion. No rales, rhonchi or wheezes noted. No increased work of breathing, no retractions or nasal flaring. Abdomen/GI: Soft, non-tender, with normal bowel sounds. No distension or tympany. No guarding or rebound. No evidence of tenderness throughout. Back: No spinal tenderness. No costovertebral tenderness. Full range of motion. Female : Normal external genitalia. Skin: Warm, dry with normal turgor. Normal color with no rashes, no lesions, and no evidence of cellulitis. Neuro: Awake and alert, GCS 15, oriented to person, place, time, and situation. Cranial nerves II-XII grossly intact. Motor strength 5/5 in all extremities. Sensory grossly intact. Cerebellar exam normal. Normal gait. Psych: Awake, alert, with orientation to person, place and time. Behavior, mood, and affect are within normal limits. 17:54 Musculoskeletal/extremity: Extremities: decreased ROM, pain, swelling, tenderness, ROM: full active range of motion, full passive range of motion, Circulation is intact in all extremities. Sensation intact. Compartment Syndrome exam of affected extremity: is normal. Weight bearing: able to fully bear weight, DVT Exam: negative Homans' sign noted on exam, no appreciated bluish discoloration, no erythema, no increased warmth, pain, swelling, tenderness. 18:28 ECG was reviewed by the Attending Physician. [facility] Vital Signs: 16:50 BP 149 / 74; Pulse 75; Resp 15 S; Temp 97.7(O); Pulse Ox 100% on 2 lpm NC; Weight 75.75 jd3 kg (R); Height 5 ft. 7 in. (170.18 cm) (R); Pain 3/10; 17:47 BP 165 / 76; Pulse 73; Resp 14 S; Pulse Ox 100% on 2 lpm NC; jd3 19:01 BP 172 / 90; Pulse 73; Resp 13 S; Pulse Ox 100% on 2 lpm NC; jd3 19:54 BP 151 / 73; Pulse 72; Resp 16 S; Pulse Ox 98% on 2 lpm NC; jd3 16:50 Body Mass Index 26.16 (75.75 kg, 170.18 cm) [facility] MDM: 16:54 Patient medically screened. [facility] 18:08 Differential diagnosis: abnormal EKG, acute myocardial infarction, anxiety, chest wall carlos pain, costochondritis, esophagitis, hiatal hernia, pancreatitis, stable angina, unstable angina. HEART Score: History: Moderately Suspicious (1), ECG: Non specific repolarization disturbance / LBTB / PM (1), Age: > 45 and < 65 years (1), Risk Factors: > or = 3 Risk factors for atherosclerotic disease (2), [Hypercholesterolemia] [Hypertension] [DM] [+ Family HX] Troponin: < or = 1 x Normal Limit (0). The patient was not given aspirin in the Emergency Department. Patient reports taking aspirin within the past 24 hours. The patient's deep vein thrombosis risk score was calculated as follows: Total Score: 0. This patient was found to be at low risk for a deep vein thrombosis by using the Well's assessment criteria. The patient's pulmonary embolism risk score was calculated as follows: Total Score: 0-2 points. This patient was found to be at low risk for a pulmonary embolism by using the Well's assessment criteria. SYMONE Risk Score: 1 - Three or more CAD risk factors, 1- Known CAD, 1 - ASA use in past 7 days. Data reviewed: vital signs, nurses notes, lab test result(s), EKG, radiologic studies, plain films. 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 Test interpretation: by ED physician or midlevel provider: ECG, plain radiologic studies. Counseling: I had a detailed discussion with the patient and/or guardian regarding: the historical points, exam findings, and any diagnostic results supporting the discharge/admit diagnosis, the presence of at least one elevated blood pressure reading (>120/80) during this emergency department visit, lab results, radiology results, the need for further work-up and treatment in the hospital. 01/09 17:36 Order name: Basic Metabolic Panel; Complete Time: 19:01 jd3 01/09 17:36 Order name: CBC with Diff d3 01/09 17:36 Order name: LFT's; Complete Time: 19: jd3 01/09 17:36 Order name: Magnesium; Complete Time: 19:01 jd3 01/09 17:36 Order name: NT PRO-BNP; Complete Time: 19:01 jd3 01/09 17:36 Order name: PT-INR; Complete Time: 18:20 jd3 01/09 16:53 Order name: EKG; Complete Time: 16:54 jd3 01/09 16:53 Order name: EKG - Nurse/Tech; Complete Time: 17:04 jd3 01/09 17:36 Order name: Troponin (emerg Dept Use Only); Complete Time: 19:01 jd3 01/09 17:36 Order name: XRAY Chest (1 view); Complete Time: 19:01 jd3 01/09 17:36 Order name: Cardiac monitoring; Complete Time: 17:36 jd3 01/09 18:17 Order name: Type And Screen carlos 01/09 19:59 Order name: CBC Smear Scan [facility] 01/09 17:36 Order name: IV Saline Lock; Complete Time: 17:46 jd3 01/09 17:36 Order name: Labs collected and sent; Complete Time: 17:46 jd3 01/09 17:36 Order name: O2 Per Protocol; Complete Time: 17:36 jd3 01/09 17:36 Order name: O2 Sat Monitoring; Complete Time: 17:36 jd3 EC:28 Rate is 73 beats/min. Rhythm is regular. QRS [place] is Normal. [place] interval is normal. QRS carlos interval is normal. QT interval is normal. No Q waves. T waves are Normal. No ST changes noted. Clinical impression: NSR w/ Non-specific ST/T Changes and No evidence of ischemia. Interpreted by me. Reviewed by me. Administered Medications: 19:24 Drug: Avon 10 mg-325 mg 1 tabs Route: PO; jd3 19:55 Follow up: Response: No adverse reaction jd3 Disposition: 01/10/20 18:26 Hospitalization ordered by Nimesh Barreto for Inpatient Admission. Preliminary diagnosis are Chest pain, unspecified, Pleural effusion in conditions classified elsewhere - RIGHT LOWER, Anemia, unspecified, End stage renal disease, Essential (primary) hypertension. - Bed requested for Telemetry/MedSurg (Inpatient). - Status is Inpatient Admission. jd3 - Condition is Fair. - Problem is new. - Symptoms have improved. Signatures: Dispatcher [employer] Veronika Flannery, RN RN Alessio Chicas MD MD cha Davies, Jonathon, RN RN jd3 Corrections: (The following items were deleted from the chart) 19:23 18:26 Hospitalization Ordered by Nimesh Barreto DO for Inpatient Admission. Preliminary dw diagnosis is Chest pain, unspecified; Pleural effusion in conditions classified elsewhere - RIGHT LOWER; Anemia, unspecified; End stage renal disease; Essential (primary) hypertension. Bed requested for Telemetry/MedSurg (Inpatient). Status is Inpatient Admission. Condition is Fair. Problem is new. Symptoms have improved. carlos 19:28 16:52 Allergies: HYDROCODONE; jd3 jd3 20:16 19:23 01/10/2020 18:26 Hospitalization Ordered by Nimesh Barreto DO for Inpatient jd3 Admission. Preliminary diagnosis is Chest pain, unspecified; Pleural effusion in conditions classified elsewhere - RIGHT LOWER; Anemia, unspecified; End stage renal disease; Essential (primary) hypertension. Bed requested for Telemetry/MedSurg (Inpatient). Status is Inpatient Admission. Condition is Fair. Problem is new. Symptoms have improved. dw
--- NOTE | 2020-01-10 18:48 | RAD REPORT ---
EXAM DESCRIPTION: RAD - Chest Single View - 01/10/2020 6:21 pm CLINICAL HISTORY: CHEST PAIN Chest pain. COMPARISON: Chest Single View dated 01/04/2020; Chest Single View dated 12/15/2019; Chest Single View dated 12/07/2019; Chest Single View dated 11/30/2019 FINDINGS: Portable technique limits examination quality. Chronic right pleural effusion appears mildly diminished since comparative study. Mild pulmonary robbin a is seen. Heart is moderately enlarged with sternotomy wires present.Left-sided dialysis catheter is place. IMPRESSION: Moderate volume overload pattern.
[2020-01-10 18:53] LABS: Albumin 1.9 g/dL (3.4-5.0); Bilirubin Direct 0.2 mg/dL (0-0.2); Bilirubin Total 0.4 mg/dL (0.2-1.0); Potassium 3.5 mmol/L (3.5-5.1); Protein, Total 6.9 g/dL (6.4-8.2); Troponin (Emerg Dept Use Only) 0.06 ng/mL (0.0-0.045)
[2020-01-10] MEDS ORDERED: HYDROCODONE/APAP 10/325 TAB ONE (19:36)
[2020-01-10 19:58] LABS: Anisocytosis 2+; Blood Morphology Comment NOTED (NOT SEEN); Platelet Estimate DECR; White Blood Cell Scan OK (OK)
[2020-01-10 19:59] LABS: Poikilocytosis 1+
--- NOTE | 2020-01-10 19:59 | P.HP ---
Certification for Inpatient Patient admitted to: Observation With expected LOS: <2 Midnights Patient will require the following post-hospital care: None Practitioner: I am a practitioner with admitting privileges, knowledge of patient current condition, hospital course, and medical plan of care. Services: Services provided to patient in accordance with Admission requirements found in Title 42 Section 412.3 of the Code of Federal Regulations <Juan PabloromeroMk - Last Filed: 01/10/20 19:54> Patient admitted to: Observation Patient will require the following post-hospital care: None Practitioner: I am a practitioner with admitting privileges, knowledge of patient current condition, hospital course, and medical plan of care. Services: Services provided to patient in accordance with Admission requirements found in Title 42 Section 412.3 of the Code of Federal Regulations <Nimesh Barreto - Last Filed: 01/12/20 06:52> Patient History Date of Service: 01/10/20 Primary Care Provider: Darya hernandez Reason for admission: Chest pain History of Present Illness: 64-year-old female with history of end-stage renal disease on hemodialysis, diabetes mellitus type 2, hypertension, chronic systolic congestive heart failure hypothyroidism presents emergency department for chest pain. Patient was receiving dialysis and in approximately the 1st 15 min of dialysis patient began experiencing chest pain. Patient reports chest pain was pressure like, left-sided chest and nonradiating. Patient did experience associated shortness of breath at the time. Patient reports that she did burp a couple of times and states that this did help with her symptoms but dialysis was discontinued and patient was taken to the emergency department for evaluation. EKG without any acute findings, chest x-ray suggests moderate volume overload status. Initial troponin 0.06. BNP also significantly elevated at 79,000. Hemoglobin also noted to be low at 7.9. Patient with history of acute blood-los s anemia and anemia of chronic disease. ED provider ordered patient to receive 1 unit packed red blood cells and called nephrology who will see patient in the morning to perform dialysis. When I saw the patient in the emergency department she was awake, alert, oriented x3. Patient chest pain free at this time. Reviewed previous admission notes which showed patient had nuclear/pharmacologic stress test in October of 2019 without stress-induced ischemia. Noted left ventricular ejection fraction was 33% at that time. Patient also with chronic wounds to lower extremities which are currently wrapped, patient follows wound healing center on Wednesdays for this. No elevation in white blood cell count or fever to suggest worsening condition. - Past Medical/Surgical History Diabetic: Yes -: COPD -: Hypertension -: CAD, CABG x4 vessels (August 2017) -: Diabetes mellitus type 2, insulin-dependent -: Chronic combined systolic/diastolic CHF -: Uterine cancer status post hysterectomy -: Chronic renal disease, stage IV -: 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 Her son lives with her. She has 3 children. - Family History Brother -: Heart disease, Hypertension, Diabetes Notes: Father -: Heart disease, Cancer Notes: - Prostate surgery - Hemorrhage Mother -: GI disease Notes: Sister -: Heart disease Notes: - Respiratory failure - Social History Alcohol use: No CD- Drugs: No Caffeine use: Yes Place of Residence: Home <Mk Alonso - Last Filed: 01/10/20 19:54> Date of Service: 01/12/20 Home medications list reviewed: Yes <Nimesh Barreto - Last Filed: 01/12/20 06:52> Allergies morphine Allergy (Severe, Verified 11/19/19 05:42) Anaphylaxis vancomycin Allergy (Intermediate, Verified 11/23/19 08:17) Shortness of breath basil Allergy (Verified 11/19/19 05:42) Nausea/Vomiting tramadol Allergy (Verified 11/19/19 05:42) Nausea/Vomiting trazodone Allergy (Verified 11/19/19 05:42) Nausea/Vomiting nitroglycerin Adverse Reaction (Mild, Verified 11/19/19 05:42) Nausea/Vomiting Home Medications: Atorvastatin Calcium [Lipitor] 40 mg PO BEDTIME 11/19/19 Bupropion HCl [Wellbutrin] 2 tab PO BID 11/19/19 Clopidogrel Bisulfate [Plavix*] 75 mg PO DAILY 11/19/19 Collagenase [Santyl Ointment*] 1 raquel TOP DAILY 11/19/19 Fluticasone [Flovent Hfa 110*] 2 puff PO BID 11/19/19 Gabapentin 300 mg PO TID 11/19/19 Insulin Detemir [Levemir Flextouch] 10 units SQ BID 11/19/19 Sertraline [Zoloft*] 25 mg PO DAILY 11/19/19 carvediloL [Coreg*] 12.5 mg PO BID 11/19/19 Ensure High Protein 237 ml PO BID 30 Days #60 can 12/02/19 Patrice [Patrice*] 1 pkt PO BID 30 Days #60 powd.pack 12/02/19 Levothyroxine [Synthroid*] 0.112 mg PO DAILYAC 30 Days #30 tab 12/02/19 Allopurinol 100 mg PO BID 12/06/19 Furosemide [Lasix*] 40 mg PO BID 12/06/19 Isosorbide Mononitrate [Isosorbide Mononitrate ER] 30 mg PO DAILY 12/06/19 NIFEdipine [Nifedipine ER] 60 mg PO DAILY 12/06/19 Hydralazine [Apresoline*] 50 mg PO TID #180 tab 01/11/20 Review of Systems 10-point ROS is otherwise unremarkable Respiratory: Shortness of Breath Cardiovascular: Chest Pain, Orthopnea <Mk Alonso - Last Filed: 01/10/20 19:54> Physical Examination - Physical Exam General: Alert, In no apparent distress, Oriented x3 HEENT: Atraumatic, Normocephalic, PERRLA Neck: Supple Respiratory: Clear to auscultation bilaterally, Crackles/rales (Bibasilar) Cardiovascular: Normal pulses, Regular rate/rhythm, Normal S1 S2 Capillary refill: <2 Seconds Gastrointestinal: Normal bowel sounds, No tenderness, No masses, No rebound Musculoskeletal: No clubbing, No contractures Integumentary: Other (Wound dressings present to bilateral lower extremities with Pedro wrap in place. Wound dressings all someplace to forearms. Area surrounding dressings without any redness, swelling, drainage. Dressing is dry.) Neurological: Normal speech, Normal strength at 5/5 x4 extr, Normal tone, Sensation intact Urinary: Dialysis catheter - Studies Laboratory Data (last 24 hrs) 01/10/20 17:43: PT 14.1 H, INR 1.20 01/10/20 17:43: WBC 6.0, Hgb 7.9 L*, Hct 24.3 L D, Plt Count 148 L D 01/10/20 17:43: Sodium 139, Potassium 3.5, BUN 38 H D, Creatinine 2.93 H, Glucose 76, Magnesium 2.0, Total Bilirubin 0.4, AST 23, ALT 16, Alkaline Phosphatase 149 H <Mk Alonso - Last Filed: 01/10/20 19:54> Assessment and Plan - Plan Assessment Chest pain rule out ACS End-stage renal disease on hemodialysis Acute on Chronic systolic congestive heart failure Normocytic anemia-likely of chronic disease Diabetes mellitus type 2 Hypertension Coronary artery disease status post 4 vessel CABG Hyperlipidemia Plan Chest pain rule out ACS- will trend troponins, cardiology consult in place. Patient had a stress test in October 2019 which showed no stress-induced ischemia. Suspect elevated troponin likely related to demand ischemia and volume overload. Monitor on telemetry. DVT prophylaxis heparin 5000 subcutaneous twice daily. End-stage renal disease on hemodialysis- nephrology consult in place. Acute on Chronic systolic congestive heart failure- will continue home medications, provide patient with IV Lasix for diuresis as she is with some volume overload. Normocytic anemia-likely of chronic disease- patient receiving 1 unit packed red blood cells from the emergency department, will give patient Lasix after unit is complete. Recheck hemoglobin with morning labs. Patient's baseline hemoglobin appears to be around 7-8. Diabetes mellitus type 2- a.c. HS Accu-Cheks scale insulin therapy. Hypertension- obtain and continue home medications. Coronary artery disease status post 4 vessel CABG- obtain and continue home medications. Hyperlipidemia- obtain and continue home medications. Discharge Plan: Home Plan to discharge in: 24 Hours - Advance Directives Does patient have a Living Will: Yes Does patient have a Durable POA for Healthcare: Yes - Code Status/Comfort Care Code Status Assessed: Yes (Patient is full code) Critical Care: No Time Spent Managing Pts Care (In Minutes): 55 <Mk Alonso - Last Filed: 01/10/20 19:54> - Plan Case discussed in detail with nurse practitioner. Agree with plan of care. Nephrology consulted to initiate dialysis. Spoke with nephrology. Nephrology will give 2 units of packed red blood cells. Anticipate discharge. Please see notes for further details. <Nimesh Barreto - Last Filed: 01/12/20 06:52>
[2020-01-10] MEDS ORDERED: ACETAMINOPHEN 500 MG TAB PO PRN (20:38)
[2020-01-10] MEDS ORDERED: ONDANSETRON 4 MG/2 ML VIAL IV PRN (20:38)
[2020-01-10] MEDS ORDERED: FUROSEMIDE 40 MG/4 ML VIAL IV ONE (20:38)
[2020-01-10] MEDS ORDERED: MELATONIN 5 MG TABLET PO PRN (20:53)
[2020-01-10] MEDS: INSULIN -REGULAR HUMAN 50 UNIT/0.5 ML ML SQ SCH (21:00)
[2020-01-10] MEDS: ENSURE HIGH PROTEIN 237 ML CAN PO SCH (21:00)
[2020-01-10] MEDS: FUROSEMIDE 40 MG/4 ML VIAL IV SCH (21:00)
[2020-01-10] MEDS: HEPARIN 5000 UNIT/ML 1 ML VIAL SQ SCH (21:00)
[2020-01-10 21:31] VITALS: BMI 25.9
[2020-01-10] MEDS: GABAPENTIN 300 MG CAP PO SCH (21:41)
[2020-01-10] MEDS: HYDRALAZINE HCL 25 MG TABLET PO SCH (21:42)
[2020-01-10] MEDS: allopurinoL 100 MG TAB PO SCH (21:42)
[2020-01-10] MEDS: carvediloL 12.5 MG TAB PO SCH (21:42)
[2020-01-10] MEDS: ATORVASTATIN 40 MG TAB PO SCH (21:42)
[2020-01-10 23:31] LABS: CKMB Creatine Kinase MB 2.7 ng/mL (0.3-3.6); Troponin I 0.06 ng/mL (0.0-0.045)
[2020-01-11 05:11] LABS: Basophils % 1.4 % (0-1.3); Hematocrit 22.9 % (36.0-45.0); Lymphocytes % 41.2 % (15.3-44.8); MPV 7.9 fL (7.6-11.3); RBC Red Blood Cell Count 2.44 M/uL (3.86-4.86)
[2020-01-11 05:28] LABS: CKMB Creatine Kinase MB 2.9 ng/mL (0.3-3.6); Magnesium 1.8 mg/dL (1.8-2.4); Potassium 3.9 mmol/L (3.5-5.1); Troponin I 0.06 ng/mL (0.0-0.045)
[2020-01-11] MEDS: LEVOTHYROXINE SOD 0.112 MG TAB PO SCH (05:35)
[2020-01-11] MEDS: HYDROCODONE/APAP 7.5/325 MG TAB PO PRN ×3 (06:11→21:44)
[2020-01-11] MEDS: INSULIN -REGULAR HUMAN 50 UNIT/0.5 ML ML SQ SCH ×4 (07:30→21:00)
--- NOTE | 2020-01-11 07:57 | P.DS ---
Admission Date: 01/10/20 Discharge Date: 01/11/20 Primary Care Provider: [facility]; Nephrology-Dr. Fernando Disposition: ROUTINE DISCHARGE Discharge Condition: GOOD Reason for Admission: Chest pain Consultations: Nephrology-Dr. Fernando Cardiology-Dr. Raymond Procedures: Cardiac Stress Test 11/23/2019: FINDINGS: A moderate to large area of diminished radiotracer activity involves the inferior left ventricular myocardium extending to the apex. It is present on rest and stress images. It is unchanged from the prior exam. The remainder of the left ventricular myocardium demonstrates normal radiotracer activity on rest and stress sequences. The left ventricular ejection fraction equals 33% IMPRESSION: Moderate to large fixed perfusion defect involving the inferior left ventricular myocardium extending to apex consistent with infarction No evidence of stress-induced ischemia CXR: FINDINGS: Portable technique limits examination quality. Chronic right pleural effusion appears mildly diminished since comparative study. Mild pulmonary edema is seen. Heart is moderately enlarged with sternotomy wires present.Left-sided dialysis catheter is place. IMPRESSION: Moderate volume overload pattern. Medical Problem List: Chest pain atypical possibly related to pulmonary edema/acute on chronic systolic CHF complicated with history of CAD with prior 4 vessel CABG End-stage renal disease on hemodialysis Normocytic anemia-likely of chronic disease Diabetes mellitus type 2 Hypertension Hyperlipidemia COPD on chronic oxygen Depression with anxiety Diabetic neuropathy Hypothyroidism Chronic lower extremity wounds Brief History of Present Illness: 64-year-old female with history of end-stage renal disease on hemodialysis, diabetes mellitus type 2, hypertension, chronic systolic congestive heart failure, hypothyroidism presents emergency department for chest pain. Patient was receiving dialysis and was not able to finish. Within the 1st 15 min of dialysis, patient began experiencing chest pain. Patient reports chest pain was pressure like, left-sided chest and nonradiating. Patient did experience associated shortness of breath at the time. Patient reports that she did burp a couple of times and states that this did help with her symptoms but dialysis was discontinued and patient was taken to the emergency department for evaluation. EKG without any acute findings, chest x-ray suggests moderate volume overload status. Initial troponin 0.06. BNP also significantly elevated at 79,000. The patient was admitted for further evaluation and treatment. Patient has had prior admissions for chest pain. In October of 2019 patient had cardiac stress test showing no stress-induced ischemia. Ejection fraction was 33% at this time. Patient also has chronic wounds to the lower extremity and seen by wound care. Hospital Course: Patient presented with chest pain likely related to pulmonary edema/acute on chronic systolic CHF. Patient with complicated history of CAD and 4 vessel CABG. Patient was admitted for further evaluation and treatment. Echocardiogram obtained. Prior cardiac stress test done October 2019 showed no stress-induced ischemia. Patient required dialysis and IV diuresis. Nephrology and Cardiology were consulted. Patient has done well. Patient without significant chest pain at this time. Patient also reports increased stress at home. At discharge patient will continue with a 1500 cc per day fluid restriction and low-salt diet. Recommend to monitor her weight daily. If her weight increases by more than 5 lb she is to contact nephrology or cardiology for further recommendation. At discharge patient will continue with Lasix 40 mg 1 pill twice daily and allopurinol 100 mg 1 pill twice daily. Patient will also continue with her other medications including Plavix 75 mg daily and Imdur or 30 mg daily. Patient will continue with dialysis every Friday, Friday and Friday. Compliance with dialysis will be monitored. Patient with end-stage renal disease on hemodialysis. As mentioned above patient required dialysis and IV diuresis. Patient will continue with dialysis every Friday, Friday and Friday. Patient will continue with 1500 cc per day fluid restriction. No further use of nonsteroidal anti-inflammatories. Future medications would to be renally dose. Recommend follow up with nephrology within 1 week. Recommend to recheck lab-BMP in 1 week to monitor her progress. Patient with anemia chronic disease. Patient received 2 units of packed red blood cells during dialysis. This can be further monitored by nephrology as an outpatient. Patient with diabetes mellitus type 2 insulin dependent. This has remained stable. At discharge she will continue with Levemir 10 units subcu twice daily. Recommend to maintain blood sugar less than 140 fasting and less than 200 meals. Further adjustment in her medication can be done by her PCP. Patient with hypertension. This appears stable. At discharge she will continue with carvedilol 12.5 mg 1 pill twice daily, hydralazine 50 mg 1 pill 3 times a day, and nifedipine XL 60 mg daily. Recommend to maintain blood pressure less 150/80. Further adjustment can be done by her PCP. Patient with hyperlipidemia. At discharge she will continue with Lipitor 40 mg daily. Patient with depression with anxiety. Patient with increased stress at home. At discharge will continue with Zoloft 25 mg daily and Wellbutrin 75 mg 2 pills twice daily. Recommend follow up with her PCP to further monitor. Patient may benefit with psychiatric evaluation and counseling as an outpatient. This can be done with the help of a PCP. Patient with COPD on chronic oxygen. Patient will continue with home oxygen to maintain sats above 90%. At discharge she will continue with her COPD medication-Flovent 2 puffs twice daily and albuterol 2 puffs 3 times a day as needed for shortness of breath. Patient with diabetic neuropathy. This has remained stable. At discharge she will continue with Neurontin 300 mg 1 pill 3 times a day. Further adjustment can be done by her PCP. Patient with hypothyroidism. This is remained stable. At discharge she will continue with levothyroxine 112 mcg daily. Patient with chronic lower extremity wounds. She is seen at the [facility] Care [facility]. Patient uses wrappings daily. She was to continue with her current wound care. Vital Signs/Physical Exam: Temp Pulse Resp BP Pulse Ox 96.5 F L 56 16 163/71 H 100 01/11/20 04:00 01/11/20 04:00 01/11/20 06:11 01/11/20 04:00 01/11/20 06:11 General: Alert, In no apparent distress, Oriented x3, Cooperative HEENT: Atraumatic Neck: Supple Respiratory: Clear to auscultation bilaterally Cardiovascular: Normal pulses, Regular rate/rhythm Gastrointestinal: Normal bowel sounds, Soft and benign, Non-distended, No tenderness, No masses, No rebound, No guarding Musculoskeletal: No tenderness, No warmth Integumentary: Other (Wrappings to the lower extremity bilateral) Neurological: Normal speech, Normal strength at 5/5 x4 extr, Normal tone, Normal affect Laboratory Data at Discharge: WBC 4.8 K/uL (4.3-10.9) D 01/11/20 04:41 Hgb 7.5 g/dL (12.0-15.0) L* 01/11/20 04:41 Hct 22.9 % (36.0-45.0) L 01/11/20 04:41 Plt Count 131 K/uL (152-406) L 01/11/20 04:41 PT 14.1 SECONDS (9.5-12.5) H 01/10/20 17:43 INR 1.20 01/10/20 17:43 Sodium 142 mmol/L (136-145) 01/11/20 04:41 Potassium 3.9 mmol/L (3.5-5.1) 01/11/20 04:41 BUN 41 mg/dL (7-18) H 01/11/20 04:41 Creatinine 3.18 mg/dL (0.55-1.3) H 01/11/20 04:41 Glucose 90 mg/dL (74-106) 01/11/20 04:41 Magnesium 1.8 mg/dL (1.8-2.4) 01/11/20 04:41 Total Bilirubin 0.4 mg/dL (0.2-1.0) 01/10/20 17:43 AST 23 U/L (15-37) 01/10/20 17:43 ALT 16 U/L (12-78) 01/10/20 17:43 Alkaline Phosphatase 149 U/L (45-117) H 01/10/20 17:43 Troponin I 0.06 ng/mL (0.0-0.045) H 01/11/20 04:41 Home Medications: Atorvastatin Calcium [Lipitor] 40 mg PO BEDTIME 11/19/19 Bupropion HCl [Wellbutrin] 2 tab PO BID 11/19/19 Clopidogrel Bisulfate [Plavix*] 75 mg PO DAILY 11/19/19 Collagenase [Santyl Ointment*] 1 raquel TOP DAILY 11/19/19 Fluticasone [Flovent Hfa 110*] 2 puff PO BID 11/19/19 Gabapentin 300 mg PO TID 11/19/19 Insulin Detemir [Levemir Flextouch] 10 units SQ BID 11/19/19 Sertraline [Zoloft*] 25 mg PO DAILY 11/19/19 carvediloL [Coreg*] 12.5 mg PO BID 11/19/19 Ensure High Protein 237 ml PO BID 30 Days #60 can 12/02/19 Patrice [Patrice*] 1 pkt PO BID 30 Days #60 powd.pack 12/02/19 Levothyroxine [Synthroid*] 0.112 mg PO DAILYAC 30 Days #30 tab 12/02/19 Allopurinol 100 mg PO BID 12/06/19 Furosemide [Lasix*] 40 mg PO BID 12/06/19 Isosorbide Mononitrate [Isosorbide Mononitrate ER] 30 mg PO DAILY 12/06/19 NIFEdipine [Nifedipine ER] 60 mg PO DAILY 12/06/19 Hydralazine [Apresoline*] 50 mg PO TID #180 tab 01/11/20 New Medications: Hydralazine [Apresoline*] 50 mg PO TID #180 tab Patient Discharge Instructions: 1. Recommend follow up with her PCP in 1 week to follow up this hospitalization. 2. Patient presented with chest pain likely related to pulmonary edema/acute on chronic systolic CHF. Patient with complicated history of CAD and 4 vessel CABG. Patient was admitted for further evaluation and treatment. Echocardiogram obtained. Prior cardiac stress test done October 2019 showed no stress-induced ischemia. Patient required dialysis and IV diuresis. Nephrology and Cardiology were consulted. Patient has done well. Patient without significant chest pain at this time. Patient also reports increased stress at home. At discharge patient will continue with a 1500 cc per day fluid restriction and low-salt diet. Recommend to monitor her weight daily. If her weight increases by more than 5 lb she is to contact nephrology or cardiology for further recommendation. At discharge patient will continue with Lasix 40 mg 1 pill twice daily and allopurinol 100 mg 1 pill twice daily. Patient will also continue with her other medications including Plavix 75 mg daily and Imdur or 30 mg daily. Patient will continue with dialysis every Friday, Friday and Friday. Compliance with dialysis will be monitored. 3. Patient with end-stage renal disease on hemodialysis. As mentioned above patient required dialysis and IV diuresis. Patient will continue with dialysis every Friday, Friday and Friday. Patient will continue with 1500 cc per day fluid restriction. No further use of nonsteroidal anti-inflammatories. Future medications would to be renally dose. Recommend follow up with nephrology within 1 week. Recommend to recheck lab-BMP in 1 week to monitor her progress. 4. Patient with anemia chronic disease. Patient received 2 units of packed red blood cells during dialysis. This can be further monitored by nephrology as an outpatient. 5. Patient with diabetes mellitus type 2 insulin dependent. This has remained stable. At discharge she will continue with Levemir 10 units subcu twice daily. Recommend to maintain blood sugar less than 140 fasting and less than 200 meals. Further adjustment in her medication can be done by her PCP. 6. Patient with hypertension. This appears stable. At discharge she will continue with carvedilol 12.5 mg 1 pill twice daily, hydralazine 50 mg 1 pill 3 times a day, and nifedipine XL 60 mg daily. Recommend to maintain blood pressure less 150/80. Further adjustment can be done by her PCP. 7. Patient with hyperlipidemia. At discharge she will continue with Lipitor 40 mg daily. 8. Patient with depression with anxiety. Patient with increased stress at home. At discharge will continue with Zoloft 25 mg daily and Wellbutrin 75 mg 2 pills twice daily. Recommend follow up with her PCP to further monitor. Patient may benefit with psychiatric evaluation and counseling as an outpatient. This can be done with the help of a PCP. 9. Patient with COPD on chronic oxygen. Patient will continue with home oxygen to maintain sats above 90%. At discharge she will continue with her COPD medication-Flovent 2 puffs twice daily and albuterol 2 puffs 3 times a day as needed for shortness of breath. 10. [facility] with diabetic neuropathy. This has remained stable. At discharge she will continue with Neurontin 300 mg 1 pill 3 times a day. Further adjustment can be done by her PCP. 11. Patient with hypothyroidism. This is remained stable. At discharge she will continue with levothyroxine 112 mcg daily. 12. Patient with chronic lower extremity wounds. She is seen at the wound Care Clinic. Patient uses wrappings daily. She was to continue with her current wound care. Diet: ADA Activity: Fall precautions Time spent managing pt's care (in minutes): 55
[2020-01-11] MEDS ORDERED: COLLAGENASE 30 GM OINTMENT TOP SCH (09:00)
[2020-01-11] MEDS ORDERED: NIFEDIPINE XL 60 MG TABLET PO SCH (09:00)
[2020-01-11] MEDS ORDERED: CLOPIDOGREL 75 MG TABLET PO SCH (09:00)
[2020-01-11] MEDS ORDERED: FUROSEMIDE 40 MG/4 ML VIAL IV SCH (09:00)
[2020-01-11] MEDS ORDERED: HOME MED 1 EA UNK (Insulin Detemir [Levemir Flextouch] 10 UNITS) SQ SCH (09:00)
[2020-01-11] MEDS ORDERED: SERTRALINE HCL 50 MG TAB PO SCH (09:00)
[2020-01-11] MEDS ORDERED: ISOSORBIDE MONO SR 30 MG TAB PO SCH (09:00)
[2020-01-11] MEDS: FUROSEMIDE 40 MG/4 ML VIAL IV SCH ×2 (09:20→21:18)
[2020-01-11] MEDS: buPROPion HCL 100 MG TAB PO SCH ×2 (09:21→21:16)
[2020-01-11] MEDS: HYDRALAZINE HCL 25 MG TABLET PO SCH ×3 (09:21→21:16)
[2020-01-11] MEDS: carvediloL 12.5 MG TAB PO SCH ×2 (09:22→21:00)
[2020-01-11] MEDS: GABAPENTIN 300 MG CAP PO SCH ×3 (09:22→21:17)
[2020-01-11] MEDS: INSULIN GLARGINE 100 UNITS/ML SQ SCH ×2 (09:22→21:00)
[2020-01-11] MEDS: ENSURE HIGH PROTEIN 237 ML CAN PO SCH ×2 (09:22→21:21)
[2020-01-11] MEDS: allopurinoL 100 MG TAB PO SCH ×2 (09:22→21:17)
[2020-01-11] MEDS: BUDESONIDE 0.5 MG/2 ML NEB IH SCH ×2 (10:57→20:10)
[2020-01-11] MEDS: HEPARIN 5000 UNIT/ML 1 ML VIAL SQ SCH ×2 (11:22→21:22)
[2020-01-11] MEDS ORDERED: EPOETIN ALFA 10,000 UNIT/ML VIAL IV SCH (14:15)
[2020-01-11] MEDS ORDERED: NA CHLORIDE 0.9% 250 ML ONE (17:24)
--- NOTE | 2020-01-11 19:07 | CON ---
Date of Consultation: 01/11/2020 Additional Consulting Physician: Dr. Barreto. Reason For Consultation: Elevated BUN and creatinine, fluid management, electrolyte imbalance, end-stage renal disease. History Of Present Illness: This is a pleasant 64-year-old female, well known to me from the previous admission and from the dialysis with significant past medical history of coronary artery disease status post PTCA complicated with congestive heart failure; diastolic dysfunction; COPD; chronic kidney disease; end-stage renal disease, recently started on dialysis; nephrotic range of proteinuria; diabetes complicated with neuropathy and nephropathy; hyperlipidemia. The patient went to dialysis, has chest pain on the dialysis. For that reason, the patient was referred to the hospital. In the hospital, primary workup showed acute current syndrome has been ruled out. The patient's chest pain of 3. The patient creatinine 3.1 with GFR of 15. Past Medical History: 1. Coronary artery disease status post PTCA complicated with congestive heart failure, diastolic dysfunction. 2. COPD with pulmonary hypertension. 3. End-stage renal disease. 4. Hypertension. 5. 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 6. Diabetes complicated with neuropathy and nephropathy. 7. Obesity. Social History: Lives in long-term. Denies smoking. Denies drinking. Denies drugs abuse. Allergies: TO MORPHINE, CEFEPIME, TRAMADOL, AND ZOFRAN. Family History: Positive for diabetes and hypertension. Review of Systems: Head and Neck: No red eye. No ear pain. GI: No nausea, no vomiting. : No polyuria, no dysuria, no hematuria. LIQUOR RUNNER: No vaginal discharge. Respiratory: No shortness of breath. Cardiovascular: Has chest pain. Endocrine: No polydipsia. Skin: No rash. Neuro: Has neuropathy. Musculoskeletal: Generalized fatigue. Physical Examination: Vital Signs: When I saw the patient, blood pressure 155/68, pulse of 64, afebrile. Chest: Faint rales on the left base. Heart: S1, S2. Systolic murmur. Abdomen: Soft, nontender. Extremity: Compression wraps on both lower extremities, +1 edema. Laboratory Data: Sodium 142, potassium 3.9, bicarb 28, BUN 41, creatinine 3.1, GFR of 15, calcium 7.2, magnesium 1.8. Cardiac enzyme was negative. WBC 4.8, H and H 7.5/22.9. Current Medications: The patient on in the hospital include: 1. Plavix. 2. Heparin. 3. Atorvastatin. 4. Carvedilol 12.5 b.i.d. 5. Hydralazine 50 t.i.d. 6. Isosorbide. 7. Nifedipine 60 daily. 8. Gabapentin 300 t.i.d. 9. Zoloft. 10. Lasix 40 b.i.d. 11. Levothyroxine. 12. Allopurinol 100 b.i.d. Assessment And Plan: 1. End-stage renal disease, slightly on the wet side. We will challenge the patient. 2. Anemia of chronic kidney disease. I am going to go ahead and arrange for to resume Retacrit and we will arrange for 2 units of blood transfusion with dialysis today. 3. Hypertension. We will utilize the blood pressure for more ultrafiltration. 4. Hypomagnesemia. No need for supplement, as going to be corrected with dialysis. 5. Hypokalemia, corrected with dialysis. 6. Hypomagnesemia. No need for supplement. Time spent Corordent the care discussing the case with the patient Family member (face to face) and staff member / other outbound sales consultant and placing order 65 min GAMA Voice ID: [id number] Report ID: [id number]
[2020-01-11] MEDS: ATORVASTATIN 40 MG TAB PO SCH (21:15)
[2020-01-11] MEDS ORDERED: HYDROCODONE/APAP 7.5/325 MG TAB PO PRN (21:45)
[2020-01-11 23:25] VITALS: O2SAT 98
[2020-01-12] MEDS: LEVOTHYROXINE SOD 0.112 MG TAB PO SCH (05:46)
--- NOTE | 2020-01-12 07:17 | EKG ---
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: ABHINAV MEASUREMENT RESULTS: Intervals: Rate: 73 [place]: 206 QRSD: 108 QT: 420 QTc: 462 [place]: P: 65 [place]: 206 QRS: 131 T: 98 INTERPRETIVE STATEMENTS: Normal sinus rhythm Right axis deviation Low voltage QRS Cannot rule out Anteroseptal infarct, age undetermined Abnormal ECG Compared to ECG 01/04/2020 05:48:09 Right-axis deviation now present Low QRS voltage now present Sinus bradycardia no longer present First degree AV block no longer present ST (T wave) deviation no longer present Possible ischemia no longer present Myocardial infarct finding still present Electronically Signed On 01-12-20 07:15:07 CDT by Taj Raymond
[2020-01-12] MEDS: INSULIN -REGULAR HUMAN 50 UNIT/0.5 ML ML SQ SCH (07:30)
[2020-01-12] MEDS: FUROSEMIDE 40 MG/4 ML VIAL IV SCH (08:08)
[2020-01-12] MEDS: INSULIN GLARGINE 100 UNITS/ML SQ SCH (08:08)
[2020-01-12 09:05] VITALS: BP 144/64; TEMP 97.5
--- NOTE | 2020-01-13 12:35 | CON ---
Date of Consultation: 01/11/2020 Reason For Consultation: Chest pain. History Of Present Illness: Ms. Priest is a 64-year-old woman with a history of coronary artery diseas e status post multiple stents in the LAD and RCA in the past. Her last stent was a few years ago. H er last catheterization was about 2 years ago. Her last stress test was 6 weeks ago, which was negat moo. She basically had chest pain at the beginning of her hemodialysis. Denied PND, orthopnea, naus ea, vomiting, diaphoresis, palpitations, or syncope. She is already ruled out for a myocardial infar ction. She denied any fever or chills or cough. Her pain lasted about 5-10 minutes. Past Medical History: Includes CHF, COPD, diabetes, end-stage renal disease, CAD status post PCI, dy slipidemia, history of hypertension. Medications: At home include gabapentin, hydralazine, insulin, and Plavix. Allergies: INCLUDE AUGMENTIN, BASIL, CLINDAMYCIN, MORPHINE, NITROGLYCERIN, TRAMADOL, AND TRAZODONE. Review of Systems: Negative. Social History: Negative. Family History: Noncontributory. Physical Examination: Vital Signs: Stable. 142/66 blood pressure. Her pulse was 60 and sinus rhythm. Respiratory rate w as 18. Temperature was 99. She was pain free. Vital signs are stable, afebrile. HEENT: Negative. Neck: Supple with no bruit. Chest: Clear. Cardiac: Revealed a regular rhythm and rate. No murmurs, gallops, or rubs. Abdomen: Benign. Extremities: Revealed no clubbing, cyanosis, or edema. Diagnostic Data: Sodium was 142, her potassium was normal, creatinine at 3.1. Her hemoglobin was 8. 5. Cardiac enzymes were negative. Impression And Plan: 1.End-stage renal disease with mild congestive heart failure exacerbation with anemia. Dr. Fernando had seen the patient. There is a plan to use Retacrit for her anemia. 2.Hypertension. 3.Hypomagnesemia and hypokalemia. 4.Dyslipidemia that is stable. 5.Chest pain, probably secondary to coronary artery disease, but the patient has ruled out and I cer tainly have no plan to do any further cardiac testing. She recently had a stress test that showed no ischemia. We have plenty of room for medication as far as her angina is concerned. I would aurora lly increase her carvedilol to 25 b.i.d. We can increase her Imdur. She has to continue her Plavix and aspirin. We will catheter if her symptoms persist down the road without doing any further cardia c stress test. Her last stress test as mentioned earlier was done in October. From my standpoint, Ms Alfred Priest can go home whenever it is okay with Nephrology and Dr. Barreto. I would recommend increasing her Coreg to 25 b.i.d. We will see her in the office in the next 2 weeks. JAMIA/CELESTINE Voice ID: [id number] Report ID: [id number]
== END 2020-01-12 08:19 | disposition home health service (06) ==
LOC: ER 16:34 → ERHOLD 19:22 → 2ND 19:53
PROVIDERS: ADMIT Family Medicine; ATTEND Family Medicine
DX: R07.9 Chest pain, unspecified (principal); I13.2 Hypertensive heart and chronic kidney disease with heart failure and with stage 5 chronic kidney disease, or end stage renal disease; N18.6 End stage renal disease; I50.43 Acute on chronic combined systolic (congestive) and diastolic (congestive) heart failure; E11.22 Type 2 diabetes mellitus with diabetic chronic kidney disease; I25.10 Atherosclerotic heart disease of native coronary artery without angina pectoris; Z95.5 Presence of coronary angioplasty implant and graft; J44.9 Chronic obstructive pulmonary disease, unspecified; E78.5 Hyperlipidemia, unspecified; Z79.4 Long term (current) use of insulin; Z79.02 Long term (current) use of antithrombotics/antiplatelets; D63.1 Anemia in chronic kidney disease; E87.6 Hypokalemia; E83.42 Hypomagnesemia; E11.40 Type 2 diabetes mellitus with diabetic neuropathy, unspecified; Z95.1 Presence of aortocoronary bypass graft; Z99.81 Dependence on supplemental oxygen; F41.8 Other specified anxiety disorders; E03.9 Hypothyroidism, unspecified; E11.622 Type 2 diabetes mellitus with other skin ulcer; L97.929 Non-pressure chronic ulcer of unspecified part of left lower leg with unspecified severity; L97.919 Non-pressure chronic ulcer of unspecified part of right lower leg with unspecified severity; Z85.42 Personal history of malignant neoplasm of other parts of uterus; Z89.412 Acquired absence of left great toe; Z20.828 Contact with and (suspected) exposure to other viral communicable diseases; R94.31 Abnormal electrocardiogram [ECG] [EKG]
CPT/HCPCS: 93005; 85025 ×2; 80048 ×2; 36415 ×2; 86900; 83735 ×2; 86850; 82550 ×2; 85610; 86870; 86901; 82947 ×7; 80076; 84484 ×3; 82553 ×2; 86922 ×2; 83880; 71045; 90935; 94640 ×2; 99285; U0002; J1940 ×3; J1644 ×3; J1815; G0378 ×3; P9016 ×2; J7050; J2405; J3590

== ENCOUNTER 2020-01-23 00:34 | Observation (INO) | payer MEDICAID ==
--- OUTSIDE RECORDS SUMMARY | 2020-01-23 00:39 | XMS REPORT | Clinical Summary ---
:1955 Author Organization [facility] Address [address] [place] [address] Care Team Providers Name Role Phone Landy [...] FE) MG tablet mouth daily with breakfast. aspirin 81 MG EC tablet Take 81 [...] 24 hr tablet mg total) by mouth 10/17 daily Blood 20 pressure. hydrALAZINE (APRESOLINE) Take [...] (IMDUR) 30 MG 24 hr tablet daily. 09/29 0 20 levoFLOXacin (LEVAQUIN) Take 1 tablet (250 10 tablet 0 020 12/29 250 MG tablet mg total) by mouth 05/20 daily for 10 days. 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 05/19/2017 [...] Lisa vascular diseas e) with hadley on ([facility]) (Primary Dx) 12/16/2019 Orders Only Shiva Anderson, RN after 01/22/2019 Family History Medical History Relation Name Comments [...] YRS Completed 01/11/2014 Implants Implanted Type Area Party Plan Salesperson Device Shelf Model / Identifier Expiration Serial / Date Lot Device Clsr Angio-Seal Vip 8fr [id number] - [id number] Cardiovascular N/A: [facility] EVELYN 01/28/2018 [id number] / Implanted: Qty: 1 on 05/12/2017 by Joana Powers, Sandra Carter MD at [facility] Groin MED:CARDIAC / SURG [id number] Grft Eptfe-Heparin Rng [id number] - [id number] Graft/P atch Right: SUHAS GORE & 04/09/2021 [id number] / Implanted: Qty: 1 on 08/05/2017 by Mariela Santamaria MD at [facility] Leg ASSC:MED PRDT [id number] / N/A Description:GORE PROPATEN VASCULAR GRAFT REMOVABLE [...] SARS-COV2/RT-PCR Routine 12/30/2019 5:11 Results for this (HS & REF LABS) [...] procedure are in the results section. after 01/22/2019 Results EKG-SCANNED (01/05/2020 8:40 AM CDT) Narrative [...] POC-Glucose Meter 102Comment: : 70 - 110 [facility] mg/dL [facility] [address] [facility] [address]: Identity Management Developer/Technicia n ID = [id number] for Anne Salgado Specimen Blood Performing Organization Address City/State/Zipcode Phone Number [facility] [address] [place] [address] CENTER CBC with platelet count [...] LABORATORY e Specimen Blood Performing Organization Address City/[facility]/Zipcode Phone Number [facility] [address] [place], [place] [address] Comprehensive metabolic panel (01/01/2020 5:37 AM CDT)Only [...] DIALYSIS PATIENTS. Specimen Blood Narrative Performed At Identity Management Developer ID - ADMIN [facility] Performing Organization Address City/[facility]/Zipcode Phone Number [facility] [address] [place], [place] [address] Magnesium (12/31/2019 6:05 AM CDT) Pathologist Sig nature Magnesium 1.6 1.5 - 3.0 mg/dL [facility] Specimen Blood Narrative Performed At Identity Management Developer ID - ADMIN [facility] [employer] [facility] Performing Organization Address City/[facility]/Zipcode Phone Number [facility] [address] [place], [place] [phone] Anaerobic culture (12/30/2019 1:59 PM CDT)Only the most recent of2 results within the time period is included. Pathologist Sig nature Result No anaerobes isolated [facility] Result <1+ Coagulase negative [facility] Staphylococcus (A) LABORATORY Specimen Tissue - Structure of left foot (body st ructure) Organism Antibiotic Method Susceptibility Coagulase negative Staphylococcus Oxacillin 1: Susceptible Coagulase negative Staphylococcus Rifampin <=0.5: Susceptible Coagulase negative Staphylococcus Vancomycin <=0.5: Susceptible Performing Organization Address City/[facility]/Zipcode Phone Number [facility] [address] [place], [place] [address] Surgically obtained culture + gram stain (12/30/2019 1:59 PM CDT)Only the most recent of2 resultswithin the time period is included. Result 2+ Stenotrophomonas [facility] maltophilia (A) LABORATORY Gram Stain Result <1+ WBCs [facility] Gram Stain Result No organisms seen [facility] Specimen Tissue - Structure of left foot (body st ructure) Organism Antibiotic Method Susceptibility Stenotrophomonas maltophilia Levofloxacin 1: Susceptible Stenotrophomonas maltophilia Trimethoprim + Sulfamethoxazole <=20: Susceptible Performing Organization Address City/[facility] Phone Number [facility] [address] [place], [place] [address] Tissue Exam (12/30/2019 1:38 PM CDT) Case Report Surgical Pathology Report Case: [id number] [facility] Authorizing Provider: Tala Lemus DPM Collected: 12/30/2019 01:38 PM LABORATORY Ordering Location: [address] Med/Surg Received: 12/31/2019 06:52 AM Pathologist: Jovita Griffith MD Specimens: A) - Soft Tiss ue, Other, left 5th proximal phalanx B) - [place] tarsal, Left, left 5th metatarsal DIAGNOSIS A. BONE, LEFT FIFTH PROXIMAL PHALANX, BIOPSY: [facility] Electronically - SKIN WITH UNDERLYING CA RTILAGE WITH SURROUNDING ACUTE AND CHRONIC INFLAMMATION LABORATORY signed by Jovita Griffith MD B. BONE, LEFT FIFTH METATARSAL, BIOPSY: on 01/04/2020 at - ACUTE OSTEOMYELITIS 10: 21 AM - SEPARATE FRAGMENTS OF F IBROCONNECTIVE TISSUE WITH ABSCESS, NECROSIS AND GRANULATION TISSUE FORMATION Signing Pathologist Direct Phone Line: [phone] CPT Code(s) MG/ew [place] [address] x2 LABORATORY 78187 x2 CLINICAL HISTORY Osteomyelitis of left [place] [...] measuring 0.7 x 0.3 x 0.3 cm. [place] The specimen is submitted entirely into A1 and into decal solution. LABORATORY Specimen B is received in fi xative labeled with the patient's name and medical record number and designated as "metatarsal left", consists of four red-brown tissue and bone fragments measuring 2.0 x 0.5 x 0.5 cm in aggregate. the specimen is entirely B1 and into decal solution. MG/ew MICROSCOPIC A-B. Performed. [facility] DESCRIPTION LABORATORY Gross assessment [facility] [place] [facility]IRE[facility] GALAN was performed at Hospital, Department LABORATORY of Pathology, [address] [place] [address], Technical [facility] Zana GALAN component was [facility], LABORATORY performed at Department of Pathology, [address] [place] [address], Professional [address] Zana GALAN component was Hospital, Department LABORATORY performed at of Pathology, [address] [place] [address], Specimen Tissue - Soft tissue (navigational alda pt) Tissue specimen (specimen) - Metatarsal, Left Narrative Performed At This result has an attachment that is no t available. Performing Organization Address City/State/Zipcode Phone Number [facility] [address] [place] [phone] SARS-CoV2/RT-PCR (Asymptomatic ONLY) (12/30/2019 5:11 AM CDT)Only the most recent of3 resultswithin the time period is included. SARS-COV2/RT-PCR Negative Not Detected, KATHRYN FOOTE Negative, See [facility] external report CENTER for linked test SARS-COV-2 [facility] JANET FOOTE PERFORMING LAB [facility] Specimen Other - Nasopharyngeal wall structure (b yocasta structure) Narrative Performed At Negative result for this test determines that [facility] ST Viraj [facility] SARS-CoV-2 RNA was not present in the [...] the Act. Fact Sheet for Healthcare Providers: https://www.independenceIT.com/sites/default/files/pro duct/documents/Fact_Sheet_HC_Providers_Lyra_SA RS-CoV-2.pdf Fact Sheet for Healthcare Patients: https://www.independenceIT.Ohanae/sites/default/files/pro duct/documents/Fact_Sheet_Patients_Lyra_SARS-C oV-2.pdf Performing Laboratory: [facility] [address] [place] [address] Performing Organization Address City/State/Zipcode Phone Number KATHRYN [facility] [address] [place], [place] [phone] CENTER MR lower extremity without IV contrast left side (12/27/2019 4:30 PM CDT) Specimen Narrative Performed At FINAL REPORT [place] MRI OF THE LEFT FOOT WITHOUT CONTRAST [...] Report Verified Date/Time: 12/27/2019 16:55:07 Reading Location: [facility] Radiology Reading Room Procedure Note Interface, [...] Verified Date/Time: 12/27/2019 1 6:55:07 Reading Location: [facility] Radiology Reading Room Performing Organization Address City/State/Zipcode Phone Number [facility] Wound culture + gram stain (12/27/2019 12:02 PM CDT) Result 1+ Stenotrophomonas [place] maltophilia (A) LABORATORY Result 1+ Kary parapsilosis [facility] (A) LABORATORY Gram Stain Result <1+ WBCs [facility] Gram Stain Result <1+ gram negative rods [facility] Specimen Wound - Structure of right foot (body st ructure) Organism Antibiotic Method Susceptibility Stenotrophomonas maltophilia Levofloxacin 2: Susceptible Stenotrophomonas maltophilia Trimethoprim + Sulfamethoxazole <=20: Susceptible Performing Organization Address City/State/Zipcode Phone Number [facility] [address] [facility] [place], [place] [address] TRANSFUSION SERVICE REPORT - SCAN (12/26/2019 6:02 PM CDT)Only the most recent of2 resultswithin the time period is included. Narrative Performed At This result has an attachment that is no t available. CTA AAA and Runoff (12/26/2019 3:27 PM CDT) Specimen Narrative Performed At Addendum Begins [employer] RIS REPORT STATUS:A I agree with the nonvascular findings wi th exceptions and emphasis as below: *Moderate right and small left pleural e ffusions are partially visualized. *Large volume ascites. *Diffuse anasarca *The reflux of contrast into the hepatic veins is concerning for volume overload. Signed: Gerry Crum MD Report Verified Date/Time: 12/27/2019 11:38:28 Reading Location: [facility] Reading Room - [place] [address] Add[address]um Ends FINAL REPORT CT angiography of the abdominal aorta an d runoff, 26-Dec-19 INDICATION: This is a 64 year old female with with lower leg penetrating trauma presents for assessme nt. TECHNIQUE: Spiral acquisition before and during intravenous contrast administration using a [employer] multidetector CT scanner. Images were obtained before [...] identified. However, significant calcification identified of the [place] left SFA, for e xample at image [...] righ t popliteal artery is patent, with [id number] diffuse calcificat ion identified with no obstructive [...] rosclerosis identified. 4. In the right, the [place] right SFA is not filled by contrast [...] regard ing the non-vascular findings by the Account Development Associate Radiologist. Signed: Shlomo Dockery MD Report Verified Date/Time: 12/27/2019 07:59:51 Reading Location: [place] [address] [address] Reading Room Procedure Note Interface, External [...] Verified Date/Time: 12/27/2019 1 1:38:28 Reading Location: [facility] Imagin Reading Room - [facility] F1 [address] Add[address] En[address] FINAL REPORT CT angiography of the abdominal aorta an saige runoff, 26-Dec-19 INDICATION: This is a 64 year old female with with lower leg penetrating trauma presents for assessme nt. TECHNIQUE: Spiral acquisition before and during intravenous contrast administration using a [employer] multidetector CT scanner. Images were obtained before [...] identified. However, significant calcification identified of the [place] left SFA, for e xample at image [...] righ t popliteal artery is patent, with [id number]-[id number] diffuse calcificat ion identified with no obstructive [...] rosclerosis identified. 4. In the right, the [place] right SFA is not filled by contrast [...] clinically. 7. An addendum will be dictated regardadonis gtz the non-vascular findings by the Account Development Associate Radiologist. Signed: Shlomo Dockery MD Report Verified Date/Time: 12/27/2019 0 7:59:51 Reading Location: [place] [address] [address] Reading Room Performing Organization Address City/[facility]/Zipcode Phone Number GE RIS Prepare Leuko-Red RBC (12/25/2019 11:54 PM CDT) Pathologist Sig nature CROSSMATCH COMPATIBLE SAFETRACE TX Unit ABO O Pos SAFETRACE TX UNIT NUMBER [id number] SAFETRACE TX Status TX_TIMEINCHART SAFETRACE TX Blood Bank Product RED BLOOD CELLS SAFETRACE TX PRODUCT CODE [id number] SAFETRACE TX Specimen Other Performing Organization Address [facility] Phone Number SAFETRACE TX [employer] Leuko-Red RBC (12/24/2019 7:06 PM CDT)ABORH, manual (12/24/2019 8:25 AM CDT) Pathologist Sig nature Rh Factor POS [facility] ABO Grouping OComment: PINK TOP [facility] 12/24/19 @ 0824 HOSPITAL Specimen Blood Performing Organization Address [facility] Phone Number [facility] [address] [place] [address] [phone] [facility] Type and screen, automated (12/24/2019 6:08 AM CDT) Pathologist Sig nature ABO/RH AUTOMATED O [facility] (BEAKER) POSITIVEComment [facility] : ECHO Ab Scrn NEGATIVEComment [facility] : [facility] Specimen Blood Performing Organization Address [facility] Phone Number [facility] [address] [place] [address] [facility] MR lower extremity joint only without IV [...] Report Verified Date/Time: 12/23/2019 16:10:32 Reading Location: [address] Reading Room Procedure Note Interface, External [...] Verified Date/Time: 12/23/2019 1 6:10:32 Reading Location: [facility] [id number] Ortho Con sult Reading Room Performing Organization Address City/State/Zipcode Phone Number [employer] [facility] MR brain without IV contrast (12/23/2019 3:34 PM CDT) Specimen Narrative Performed At FINAL REPORT [employer] [facility] MR, BRAIN, WITHOUT CONTRAST INDICATION: [...] 5:43:24 Performing Organization Address City/State/Zipcode Phone Number [place] Arterial Doppler Legs Bilateral (12/23/2019 9:38 AM CDT) Specimen Narrative Performed At FINAL REPORT [facility] EXAM: Bilateral Lower Extremity Arterial Ultrasound HISTORY: [...] Report Verified Date/Time: 12/23/2019 11:22:31 Reading Location: [facility] Radiology [facility] Room Procedure Note Interface, External Ris In [...] Verified Date/Time: 12/23/2019 1 1:22:31 Reading Location: [facility] Radiology [facility] Performing Organization Address City/[facility] Phone Number Itaro Ammonia (12/23/2019 4:05 AM CDT)Only the most recent of2 resultswithin the time period is included. Pathologist Sig nature Ammonia 36 17 - 80 mol/L [facility] Specimen Blood Narrative Performed At Identity Management Developer ID - ADMIN [employer] [facility] Performing Organization Address [facility] Phone Number [employer] [facility] [address] [place], [place] [address] C-Reactive Protein (12/21/2019 4:39 AM CDT) Pathologist Sig nature CRP 1.63 (H) 0.00 - 0.50 mg/dL [facility] Specimen Blood Narrative Performed At Identity Management Developer ID - ADMIN [employer] LAB[facility] Performing Organization Address [facility] Phone Number [employer] [facility] [address] [place] [phone] US abdomen complete (12/20/2019 9:17 PM CDT) Specimen Narrative Performed At FINAL REPORT [facility] INDICATION: thrombocytopenia / eval for hepatosplenomegaly COMPARISON: [...] 2:02:21 Performing Organization Address City/State/Zipcode Phone Number [place] CT brain without IV contrast (12/20/2019 4:04 PM CDT) Specimen Narrative Performed At FINAL REPORT [place] CT, BRAIN, WITHOUT CONTRAST INDICATION: Head trauma, [...] Date/Time: 12/20/2019 1 6:08:40 Performing Organization Address City/[facility] Phone Number [place] Blood gas, arterial (12/20/2019 2:28 PM CDT) [...] [facility] FIO2 32.0 % [facility] Specimen Blood, Arterial Performing Organization Address City/[facility]/Zipcode Phone Number [facility] [address] [place] [phone] XR foot 2 views right (12/20/2019 11:55 AM CDT) Specimen Narrative Performed At FINAL REPORT [facility] TECHNIQUE: Two views of the right foot [...] Report Verified Date/Time: 12/20/2019 15:15:25 Reading Location: [facility] Radiology Readin g Room Procedure Note Interface, [...] Verified Date/Time: 12/20/2019 1 5:15:25 Reading Location: [facility] Radiology Readin g Room Performing Organization Address City/State/Zipcode Phone Number [facility] RIS XR foot 2 views left (12/20/2019 11:55 AM CDT) Specimen Narrative Performed At FINAL REPORT [facility] TECHNIQUE: Two views of the right foot [...] Report Verified Date/Time: 12/20/2019 15:15:25 Reading Location: [facility] Radiology Readin g Room Procedure Note Interface, [...] Verified Date/Time: 12/20/2019 1 5:15:25 Reading Location: [facility] Radiology Readin g Room Performing Organization Address City/[facility]/Zipcode Phone Number [facility] RIS Occult blood, stool (12/20/2019 6:19 AM CDT) Pathologist Sig nature Occult blood Negative Negative [facility] Specimen Stool - Feces (substance) Performing Organization Address [facility] Phone Number [facility] [address] [place], [place] [address] Peripheral Blood Smear - Path Review (12/20/2019 5:06 AM CDT) RBC Morphology Target Cells [place] Basophilic Stippling LABORATORY Nucleated Red Blood Cells Pathologist Review Normochromic normocytic [place] anemia with a few LABORATORY target cells, nucleated RBCs and basophilic stippling. No increase in schistocytes. WBCs normal in number and morphology. Thrombocytopenia with normal platelet morphology. Pathologist: Jovita Griffith M.D. [facility] (electronic signature) LABORATORY Specimen Blood Performing Organization Address [facility] Phone Number [facility] [address] [place], [place] [address] Vitamin B12 and Folate (12/20/2019 5:06 AM CDT) Pathologist Sig [facility] Vitamin B12 1,431 (H) 211 - 911 pg/mL [facility] Folate 17.00 >=5.4 ng/mL [facility] Specimen Blood Narrative Performed At Identity Management Developer ID - ADMIN [facility] [employer] [facility] Performing Organization Address [facility] Phone Number [facility] [place], [place] [address] TSH/Free T4 If Indicated (12/20/2019 5:06 AM CDT) Pathologist Sig [facility] TSH 21.210 (H) 0.350 - 5.500 uIU/mL [place] LABOR[facility] Y Specimen Blood Narrative Performed At Identity Management Developer ID - ADMIN [facility] [employer] [facility] Performing Organization Address [facility] Phone Number [facility] [employer] [facility] [address] [place], [place] [address] PT/aPTT (12/20/2019 5:06 AM CDT) Pathologist Sig nature Protime 13.5 (H) 9.3 - 12.0 sec [facility] INR 1.25 <=5.90 [facility] PTT 38.2 (H) 23.0 - 35.0 sec [facility] Specimen Blood Narrative Performed At RECOMMENDED COUMADIN/WARFARIN INR THERAP Y RANGES [facility] STANDARD DOSE: 2.0 - 3.0 Includes: PROPHYLAXIS for venous thrombosis, systemic embolization; TREATMENT for venou s thrombosis and/or pulmonary embolus. HIGH RISK: Target INR is 2.5-3.5 for patients with mec hanical heart valves. Final Information (Auto Output) Final Information (Auto Output) Final Information (Auto Output) Performing Organization Address City/State/Zipcode Phone Number [facility] [address] [place] [phone] Iron, TIBC, % sat. (without ferritin) (12/20/2019 5:06 AM CDT) Pathologist Sig nature Iron 92.0 45.0 - 170.0 [facility] ug/dL TIBC 151 (L) 250 - 550 ug/dL [facility] Iron % Saturation 61 (H) 20 - 55 % [facility] Specimen Blood Narrative Performed At Identity Management Developer ID - ADMIN [facility] Performing Organization Address City/[facility]/Zipcode Phone Number [facility] [address] [place] [phone] ROGER Titer & Pattern (12/20/2019 5:06 AM CDT) Pathologist Sig nature ROGER Titer 1:40 [facility] ROGER Pattern Speckled [facility] Specimen Blood Performing Organization Address City/State/Zipcode Phone Number [phone] [address] [place] [address] CENTER Semmes / lambda light chains, serum (12/20/2019 5:06 AM CDT) Semmes Lt 474.4 (H) 3.3 - 19.4 [facility] Chain,Free mg/L [facility]ATED Lambda Lt 225.6 (H) 5.7 - 26.3 [facility] Chain,Free mg/L INCORPORATED Semmes/Lambda,Fr 2.10 (H) 0.26 - 1.65 [facility] [...] Lab [facility] EZ [facility] [address] [place] [address] Adonis Stein MD, PhD, CORI Performing Organization Address City/[facility] Phone Number [facility] [place] [address] [phone] [facility] Fibrinogen (12/20/2019 5:06 AM CDT) Pathologist Sig nature Fibrinogen 340 200 - 400 mg/dL [facility] Specimen Blood Narrative Performed At Final Information (Auto Output) [facility] Performing Organization Address [facility] Phone Number [facility] [address] [place] [phone] D-dimer (12/20/2019 5:06 AM CDT) Pathologist Sig nature D-Dimer, Quant 1.09 (H) <0.50 mg/L [facility] Specimen Blood Narrative Performed At REGARDING D-DIMER RESULTS: The 98% NPV (Negative Predi ctive [facility] Value) for DVT/PE exclusion is 0.50 mg/L FEU as sugges merna by the optimization consultant and as approved by the FDA. Final Information (Auto Output) Performing Organization Address [facility] Phone Number [facility] [address] [place], [place] [address] Reticulocyte count (12/20/2019 5:06 AM CDT) Pathologist Sig nature % Retic 5.9 (H) 0.4 - 2.9 % [facility] Specimen Blood Performing Organization Address [facility] Phone Number [facility] [address] [place], [place] [address] Anti-Nuclear Antibody (ROGER) (12/20/2019 5:06 AM CDT) Pathologist Sig nature ROGER Positive (A) Negative [facility] Specimen Blood Narrative Performed At Test performed by IFA method. [facility] Performing Organization Address City/[facility]/Zipcode Phone Number [facility] [address] [place], [place] [phone] CENTER T4, free (12/20/2019 5:06 AM CDT) Pathologist Sig nature Free T4 0.52 (L) 0.90 - 1.80 ng/dL [facility] Specimen Blood Narrative Performed At Identity Management Developer ID - ADMIN [facility] Performing Organization Address [facility]/Zipcode Phone Number [facility] [address] [place], [place] [address] Protein electrophoresis, serum (12/20/2019 5:06 AM CDT) Albumin Fraction 2.4 (L) 3.5 - 5.5 [facility] g/dL [facility] Alpha 1 Fraction 0.4 0.2 - 0.4 [facility] g/dL [facility] Alpha 2 Fraction 0.4 (L) 0.5 - 0.9 [facility] g/dL [facility] Beta Fraction 0.8 0.6 - 1.1 [facility] g/dL [facility] Gamma Globulin 2.3 (H) 0.7 - 1.7 [facility] Fraction g/dL [facility] Interpretation Decreased albumin, [facility] suggestive of renal [facility] damage. Polyclonal [facility]ENTER elevation of gamma fraction, suggesting chronic inflammatory response. No monoclonal bands detected. Pathologist: KATHRYN Rothman MD (electronic [facility] signature) MEDICAL CENTER Protein, Total 6.3 6.0 - 8.3 [facility] gm/dL [facility] Specimen Blood Narrative Performed At Identity Management Developer ID - LEONIE Jay [id number] Performing Organization Address City/State/Zipcode Phone Number [facility] [address] [place], [place] [phone] CENTER Haptoglobin (12/20/2019 5:06 AM CDT) Pathologist Sig nature Haptoglobin <8 (L) 14 - 258 mg/dL [facility] Specimen Blood Narrative Performed At Identity Management Developer ID - LEONIE Jay [facility] Performing Organization Address City/State/Zipcode Phone Number [facility] [address] [place] [address] CENTER Ferritin (12/20/2019 5:06 AM CDT) Pathologist Sig nature Ferritin 595.00 (H) 10.00 - 291.00 ng/mL [facility] Specimen Blood Narrative Performed At Identity Management Developer ID - ADMIN [facility] Performing Organization Address [facility] Phone Number [facility] [place], [place] [address] Lactate dehydrogenase (LDH) (12/19/2019 5:35 AM CDT) Pathologist Sig nature LDH 178 107 - 206 U/L [facility] Specimen Blood Narrative Performed At Identity Management Developer ID - ADMIN [facility] Performing Organization Address [facility] Phone Number [facility] [address] [place] [phone] Basic Metabolic Panel (12/19/2019 5:35 [...] DIALYSIS PATIENTS. Specimen Blood Narrative Performed At Identity Management Developer ID - ADMIN [facility] Performing Organization Address City/State/Zipcode Phone Number [facility] [address] [place], [place] [address] Hepatitis C antibody (12/16/2019 4:02 PM CDT) Pathologist Sig nature Hepatitis C Ab Nonreactive Nonreactive [facility] Specimen Blood Narrative Performed At Identity Management Developer ID - [facility] [place] Performing Organization Address City/State/Zipcode Phone Number [address] [address] CENTER Hepatitis B core antibody, total (12/16/2019 4:02 PM CDT) Pathologist Sig nature Hep B Core Total Ab Nonreactive Nonreactive [facility] Specimen Blood Narrative Performed At Identity Management Developer ID - [facility] CENTER Performing Organization Address City/State/Zipcode Phone Number [address] [address] CENTER Hepatitis B surface antibody (12/16/2019 4:02 PM CDT) Pathologist Sig nature Hep B S Ab <8.0 <8.0 mIU/mL [facility] Specimen Blood Narrative Performed At Identity Management Developer ID - [facility] CENTER Performing Organization Address City/State/Zipcode Phone Number [address] [address] CENTER Hepatitis B surface antigen (12/16/2019 4:02 PM CDT) Pathologist Sig nature HBsAg Screen Nonreactive Nonreactive [facility] Specimen Blood Narrative Performed At Identity Management Developer ID - ADMIN [facility] Performing Organization Address City/State/Zipcode Phone Number [facility] [address] [facility] [place], [place] [address] IR Tunneled Catheter Insertion (12/16/2019 2:26 PM CDT) Specimen Narrative Performed At FINAL REPORT [facility] Tunneled dialysis catheter insertion. History: Renal failure. [...] the patient's medical record by the nurse. Design Chief: Arlin Flores M.D. Driver/Guide: none. Approach: Right internal jugular vein Estimated [...] needle into the right atrium. A 4 [place] micropuncture sheath was placed and a 0.035 wire was advanced into the IVC. A subcutane ous tunnel was created in the left anterior chest wall by blunt dissec tion. A 23 cm tip to cuff 15.5 [place] Duraflow 2 catheter was brou ght through [...] Report Verified Date/Time: 12/16/2019 15:06:45 Reading Location: [facility] Radiology [facility] Procedure Note Interface, External Ris In - [...] the patient's medical record by the nurse. Design Chief: Arlin Flores M.D. Driver/Guide: none. Approach: Right internal jugular vein Estimated [...] needle into the right atrium. A 4 [place] micropuncture sheath was placed and a 0.035 wire was advanced into the IVC. A subcutaneo us tunnel was created in the left anterior chest wall by blunt dissec tion. A 23 cm tip to cuff 15.5 [place] Duraflow 2 catheter was brou ght through [...] Verified Date/Time: 12/16/2019 1 5:06:45 Reading Location: [facility] Radiology [facility] Room Performing Organization Address City/State/Zipcode Phone Number [place] chest 1 view portable / bedside (12/16/2019 5:55 AM CDT) Specimen Narrative Performed At FINAL REPORT [facility] TECHNIQUE: Frontal view of the chest. INDICATION: [...] Report Verified Date/Time: 12/16/2019 09:20:06 Reading Location: [facility] Radiology Readin g Room Procedure Note Interface, [...] Verified Date/Time: 12/16/2019 0 9:20:06 Reading Location: [facility] Radiology Readin g Room Performing Organization Address City/State/Zipcode Phone Number RIS Prothrombin time/INR (12/16/2019 4:08 AM CDT) Pathologist Sig nature Protime 14.1 (H) 9.3 - 12.0 sec [facility] INR 1.31 <=5.90 [facility] Specimen Blood Narrative Performed At RECOMMENDED COUMADIN/WARFARIN INR THERAP Y RANGES [facility] STANDARD DOSE: 2.0 - 3.0 Includes: PROPHYLAXIS for venous thrombosis, systemic embolization; TREATMENT for venou s thrombosis and/or pulmonary embolus. HIGH RISK: Target INR is 2.5-3.5 for patients with mec hanical heart valves. Final Information (Auto Output) Final Information (Auto Output) Performing Organization Address City/State/Zipcode Phone Number [facility] [address] [facility] [place] [place] [address] after 01/22/2019 Insurance Payer Benefit Plan / Subscriber ID Effective Dates Phone Addre ss Type Group [place] MEDICAID [place] [id number] 2011-Present CDC REVIEW CDC REVIEW [id number] 2019-[place] [address] [place] [address] Advance Directives For more information, please contact: [phone] Code Status Date Activated Date Inactivated Comments [...]
--- OUTSIDE RECORDS SUMMARY | 2020-01-23 00:51 | XMS REPORT | Continuity of Care Document ---
:1955 Author Organization [facility] t Address [address] [place] [address] Care Team Providers Name Role Phone Landy Rendon Primary Care Physician LISA MOHAMUD Attending Clinician Unavailable Cade PIERRE, Lisa Attending Clinician Kj PIERRE, Tracy Attending Clinician Urimla PIERRE, Cesia Attending Clinician Neeta THOMPSON, Maggy Attending Clinician Belkis PIERRE, Ronaldo Attending Clinician Monica VANEGAS Attending Clinician Unavailable [...] Effective Date Expiration Date Sour ce Number CAMI [id number] [address] [facility] MEDICAIDMEDICAID 00:00:00 - Marium [id number]/[id number] Ce nter 2-Present [facility] REVIEWM[facility] [place] [id number] [facility] [id number] 00:00:00 - Medical [place] [address] Problems Condition Condition Condition Status Onset Resolution [...] IBS 5-10 [facility] - 00:[facility]: Medical 00 [place] Leukocytos Leukocytos Disease Active C [facility] [...] rosis of 2-[address] [facility] [place] 00:00: Medical artery of artery of 00 Cent er extremity extremity with with ulceration ulceration Acute CHF Acute CHF Disease Active [facility]14 [facility] - [facility] Medical 00 Center COPD COPD Disease Active [facility] (chronic (chronic 2-14 [facility] - obstructiv obstructiv 00:00: Nc dical e e 00 Center pulmonary pulmonary disease) disease) Controlled Controlled Disease Active C [facility] type 2 type 2 2-14 [facility] - diabetes diabetes 00:00: Medica l mellitus mellitus 00 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, 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, with with long-term [...] d COPD d COPD Clinics type type halfway halfway Problem Active [facility] current current [facility] - use of use [facility] History of History of Problem Active [facility] stroke stroke [facility] ent Clinics 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2 [...] St disease disease [facility] - [facility] ent Clinics Allergies, Adverse Reactions, Alerts Allergy Allergy Status Severity Reaction(s) Onset Inactive Treating Comm ents Source Name Type Date Date Clinician Trazodon Drug Active Nausea And [address] [facility] Allergy Vomiting 2-12 [facility] - 00:00: Medical 00 Center Amoxicil Propensi Active Diarrhea [facility] kenzie-Pot ty to 04-21 [facility] - Clavulan adverse 00:00: Medical ate reaction 00 [place] Basil Propensi Active Nausea Only [address] [facility] ty to 04-21 [facility] - adverse 00:00: Medical reaction 00 Center s Morphine Propensi Active Anaphylaxis [address] ty to 04-21 [facility] - adverse 00:00: Medical reaction 00 Center s Nitrogly Propensi Active Nausea And [address] [facility] cerin ty to Vomiting 04-21 ONLY [facility] - adverse 00:00: Medical reaction 00 [place] Vancomyc Propensi Active Nausea And [address] [facility] ty to Vomiting 04-21 [facility] - Analogue adverse 00:00: Medical s reaction 00 [place] Vancomyc Adverse Active vomiting [facility] in HCl Reaction [facility] Clinics Nitrogly Adverse Active vomiting [facility] cerin Reaction [facility] Clinics Morphine Adverse Active headache, [facility] Sulfate Reaction breathing [place] [facility] - [facility] Adverse Active vomiting [facility] riley HCl Reaction [facility] Family History Family Member Diagnosis Comments Start Date Stop Date Source Natural father COPD [facility] Natural father Cancer [facility] Natural father Hypertension [facility] Natural mother No Known Problem [facility] Natural sister Asthma [facility] Natural sister COPD [facility] Social History Social Habit Start Date Stop Date Quantity Comments Source Sex Assigned At [facility] Cigarettes smoked 2019-12-31 2019-12-[address] [facility] - current (pack per 00:00:00 00:00:[address] [facility] day) - Reported Cigarette 2019-12-31 2019-12-[address] [facility] [address] [facility] - pack-years 00:00:00 00:00:[address] [facility] Tobacco use and 2019-12-31 2019-12-31 Never used [facility] exposure 00:00:00 00:00:[address] [facility] Alcohol intake 2019-12-31 2019-12-31 Current [facility] St Lay - 00:00:00 00:00:00 non-drinker of Medical Ce nter alcohol (finding) History of tobacco 2017-05-12 Current smoker [facility] - use 00:00:[address] [facility] Smoking Status Start Date Stop Date Source Former smoker 2019-12-31 00:00:00 2019-12-31 00:00:00 [facility] Medications Ordered Filled Start Stop Current Ordering Indication Dosage Frequency Signature Comments Components Source Medication Medication Date Date Medication? Clinician (SIG) Name Name mupirocin 2019-03 Yes QD Apply [facility] (BACTROBAN) 0-03 topically Lay es - 2 % 10:49: daily. Medical ointment [address] [place] [address] collagenase 2019-03 Yes QD Apply [facility] (SANTYL) 0-03 topically [facility] - 250 units/g 10:49: daily. Medi marilin ointment [address] [place] [address] bumetanide 2019-03 Yes 2mg [id number] Take [address] (BUMEX) 2 0-03 [id number] by mouth 3 [facility] - MG tablet [...] daily with Center breakfast. levoFLOXaci 2019-03 2020- No 250mg QD Take [address] [...] 38 :00 night as Center needed. NICOTINE 2019- No Place onto [facility] (NICODERM [...] by mouth Center daily Blood pressure. hydrALAZINE No 50mg Take [address] (APRESOLINE [...] Memoria EVERYDAY l AT BEDTIME [facility] Isosorbide Isosorbide Yes Franki TAKE [address] [facility] Mononitrate Mononitrate Jas TABLET BY [facility] - ER ER MOUTH Memoria EVERY DAY l [facility] NIFEdipine NIFEdipine Yes Franki TAKE [address] [facility] ER ER Jas TABLET BY [facility] - MOUTH Memoria EVERY DAY l [facility] BuPROPion BuPROPion Yes Franki TAKE [address] HCl HCl Jas TABLET BY [facility] - MOUTH [facility]oria EVERY DAY l [facility] Acetaminoph Acetaminoph Yes Franki (Schedule [facility] en-Codeine en-Codeine Jas III Drug) L[facility] - #3 #3 TAKE 1 Memoria TABLET BY l MOUTH [facility] EVERY 6 ent HOURS Clinics NEEDED FOR PAIN Carvedilol Carvedilol Yes Franki TAKE [address] [facility] Jas TABLET BY [facility]ukes - MOUTH Memoria TWICE A l DAY [facility] Advair Advair Yes Franki INHALE 1 [facility] Diskus Diskus Jas DOSE BY [facility] - MOUTH Memoria TWICE l DAILY. [facility] RIN[facility] ent MOUTH Clinics AFTER USE Atorvastati Atorvastati Yes Franki TAKE [address] [facility] n Calcium n Calcium Jas TABLET BY [facility]ukes - MOUTH Memoria EVERY DAY l [facility] ent Clinics Allopurinol Allopurinol Yes Franki TAKE [address] [facility] Jas TABLET BY [facility] - MOUTH Memoria TWICE A l DAY [facility] Gabapentin Gabapentin Yes Franki TAKE [address] [facility] Jas CAPSULE BY [facility]ukes - MOUTH Memoria THREE l TIMES [facility] Clinics Clopidogrel Clopidogrel Yes Franki TAKE [address] [facility] Bisulfate Bisulfate Jas TABLET BY [facility] - MOUTH Memoria EVERY DAY l [facility] Vitamin D Vitamin D Yes Franki TAKE ONE [facility] (Ergocalcif (Ergocalcif Jas CAPSULE BY Lukes - berta) berta) MOUTH ONE Memoria TIME PER l WEEK [facility] Furosemide Furosemide Yes Franki TAKE [...] Jas UNITS Lay es - BELOW THE [facility] SKIN IN l THE Outpati MORNING ent Clinics HydrALAZINE HydrALAZINE Yes Franki TAKE [address] [facility] HCl HCl Jas TABLET BY [facility]ukes - MOUTH Memoria THREE l TIMES A Outpati DAY ent Clinics Vital Signs Vital Name Observation Time Observation Value Comments Source Heart rate 2020-01-01 08:41:00 60 /min [facility] Respiratory rate 2020-01-01 08:41:00 18 /min [facility] Oxygen saturation in 2020-01-01 08:41:00 100 /min [facility] Arterial blood by Medical Ce nter Pulse oximetry Systolic blood 2020-01-01 08:32:00 162 mm[Hg] [facility] Diastolic blood 2020-01-01 08:32:00 73 mm[Hg] [facility] S [facility] Body temperature 2020-01-01 07:41:00 36.56 Deanne [facility] Body weight 2019-12-30 04:28:00 78.2 kg [facility] BMI 2019-12-30 04:28:00 27.00 kg/m2 [facility] Body height 2019-12-25 21:05:00 170.2 cm [facility] Procedures Procedure Date / Time Performed Performing Clinician [facility] e REPORT OF PROCEDURE - 2020-01-05 08:40:02 Provider, Default [facility] ENDOSCOPY SCAN [facility] RHYTHM STRIP - SCAN 2020-01-05 08:31:43 Provider, Default [facility] RHYTHM STRIP - SCAN 2020-01-05 08:31:42 Provider, Default [facility] RHYTHM STRIP - SCAN 2020-01-05 08:31:40 Provider, Default [facility] CARDIAC CATH REPORT - 2020-01-05 08:31:15 Provider, Default [facility] SCAN Scanning [facility] CARDIAC CATH REPORT - 2020-01-05 08:31:13 Provider, Default [facility] POCT-GLUCOSE METER 2020-01-01 06:33:00 Pat Mohamud [facility] COMPREHENSIVE METABOLIC 2020-01-01 05:37:00 [facility] CBC W/PLT COUNT & AUTO 2020-01-01 05:37:00 [place] [facility] POCT-GLUCOSE METER 2019-12-31 20:50:00 [facility] POCT-GLUCOSE METER 2019-12-31 18:00:00 Cade [facility] POCT-GLUCOSE METER 2019-12-31 11:42:00 Cade [facility] POCT-GLUCOSE METER 2019-12-31 06:29:00 Cade [facility] COMPREHENSIVE METABOLIC 2019-12-31 06:05:00 [facility] MAGNESIUM 2019-12-31 06:05:00 Cade [facility] CBC W/PLT COUNT & AUTO 2019-12-31 06:05:00 [place] [facility] POCT-GLUCOSE METER 2019-12-30 20:13:00 Cade [facility] POCT-GLUCOSE METER 2019-12-30 16:26:00 Cade [facility] SURGICALLY OBTAINED 2019-12-30 13:59:46 Tala Santacruz [facility] - CULTURE + GRAM STAIN Medical Matthew ter ANAEROBIC CULTURE 2019-12-30 13:59:46 Tala Santacruz [facility] SURGICALLY OBTAINED 2019-12-30 13:54:56 Tala [facility]acruz [facility] - CULTURE + GRAM STAIN Medical Matthew ter ANAEROBIC CULTURE 2019-12-30 13:54:56 Tala Santacruz [facility] TISSUE EXAM 2019-12-30 13:38:00 [facility],BONE FOOT 2019-12-30 13:11:00 SantacruzTala garcía [facility] POCT-GLUCOSE METER 2019-12-30 11:39:00 Evens [facility]udluis [facility] POCT-GLUCOSE METER 2019-12-30 05:39:00 Pat [facility] SARS-COV2/RT-PCR ([facility] & 2019-12-30 05:11:00 Pat Mohamud [facility]IC 2019-12-30 05:09:00 [facility] CBC W/PLT COUNT & AUTO 2019-12-30 05:09:00 [facility] DIFFERENTIAL [facility] POCT-GLUCOSE METER 2019-12-29 21:09:00 Cade [facility] POCT-GLUCOSE METER 2019-12-29 11:10:00 Cade [facility] HEMODIALYSIS INPATIENT 2019-12-29 08:12:17 Brandie Khan [facility] POCT-GLUCOSE METER 2019-12-29 06:10:[address] [facility] 2019-12-29 05:50:00 [facility] CBC W/PLT COUNT & AUTO 2019-12-29 05:50:00 [facility] Lily [facility] S t [facility] DIFFERENTIAL [facility] POCT-GLUCOSE METER 2019-12-28 20:37:00 Pat [facility]ud [facility] POCT-GLUCOSE METER 2019-12-28 17:38:00 Cade [facility] POCT-GLUCOSE METER 2019-12-28 13:12:00 Cade [facility] POCT-GLUCOSE METER 2019-12-28 05:43:00 Cade [facility] 2019-12-28 04:41:00 [facility] CBC W/PLT COUNT & AUTO 2019-12-28 04:41:00 [facility] ABD AO & LOWER EXT 2019-12-28 02:30:00 Sakina Tamayo [facility] - ANGIOS/ POSS PPI [facility] POCT-GLUCOSE METER 2019-12-27 20:32:00 Pat Mohamud [facility] MR LOWER EXTREMITY 2019-12-27 16:30:00 Lily Echavarria [facility] - WITHOUT IV CONTRAST LEFT [facility] POCT-GLUCOSE METER 2019-12-27 14:06:00 [facility] WOUND CULTURE + GRAM 2019-12-27 12:02:00 Annia Delgado [facility] I [facility] POCT-GLUCOSE METER 2019-12-27 06:44:00 [facility] POCT-GLUCOSE METER 2019-12-27 05:49:00 [facility] COMPREHENSIVE METABOLIC 2019-12-27 05:05:00 Lily Echavarria [facility] CBC W/PLT COUNT & AUTO 2019-12-27 05:05:00 Lily Echavarria [facility] HEMODIALYSIS INPATIENT 2019-12-27 00:31:18 Brandie Khan [facility] POCT-GLUCOSE METER 2019-12-26 20:51:00 Pat Mohamud [facility] TRANSFUSION SERVICE 2019-12-26 18:02:44 Rocco Sepulveda [facility] REPORT - SCAN Scanning [facility] POCT-GLUCOSE METER 2019-12-26 16:42:00 Pat Mohamud [facility] CT/CTA AAA AND RUNOFF 2019-12-26 15:27:00 Sakina Tamayo [facility] POCT-GLUCOSE METER 2019-12-26 11:59:00 Pat Mohamud [facility] POCT-GLUCOSE METER 2019-12-26 06:09:00 Pat Mohamud [facility] COMPREHENSIVE METABOLIC 2019-12-26 04:36:00 Jerich[facility] CBC W/PLT COUNT & AUTO 2019-12-26 04:36:00 [facility] PREPARE LEUKO-REDUCED RBC 2019-12-25 23:54:00 Brandie Khan [facility] POCT-GLUCOSE METER 2019-12-25 20:51:00 [facility] TRANSFUSION SERVICE 2019-12-25 18:04:44 Rocco Sepulveda [facility] REPORT - SCAN Scanning [facility] POCT-GLUCOSE METER 2019-12-25 17:01:00 Pat Mohamud [facility] POCT-GLUCOSE METER 2019-12-25 11:25:00 Pat Mohamud [facility] COMPREHENSIVE METABOLIC 2019-12-25 05:59:00 [place] [facility] CBC W/PLT COUNT & AUTO 2019-12-25 05:59:00 [place] [facility] POCT-GLUCOSE METER 2019-12-25 05:58:00 [facility] TRANSFUSE LEUKO-REDUCED 2019-12-24 19:06:17 Brandie Khan [facility] RED BLOOD CELLS [facility] POCT-GLUCOSE METER 2019-12-24 16:15:00 Pat Mohamud [facility] ABORH, MANUAL 2019-12-24 08:25:00 Jovita Griffith [facility] POCT-GLUCOSE METER 2019-12-24 06:11:00 [facility] TYPE AND SCREEN, 2019-12-24 06:08:00 Brandie Khan [facility]3] es - AUTOMATED [facility] COMPREHENSIVE METABOLIC 2019-12-24 05:51:00 [facility] CBC W/PLT COUNT & AUTO 2019-12-24 05:51:00 [place] [facility] POCT-GLUCOSE METER 2019-12-23 21:23:00 Pat Mohamudj [facility] POCT-GLUCOSE METER 2019-12-23 16:42:00 Pat Mohamud [facility] MR LOWER EXTREMITY JOINT 2019-12-23 15:34:00 Neeta Tala Sharron hy [facility] - ONLY WITHOUT IV CONTRAST [facility] LEFT MR BRAIN WITHOUT IV 2019-12-23 15:34:00 Lily Echavarria [facility] L ukes - CONTRAST [facility] POCT-GLUCOSE METER 2019-12-23 11:16:00 Pat Mohamud [facility] ARTERIAL DOPPLER LEGS 2019-12-23 09:38:00 Tala Santacruz Thy [facility] BILATERAL [facility] AMMONIA 2019-12-23 04:05:00 Mariela Carrasco [facility] COMPREHENSIVE METABOLIC 2019-12-23 04:00:00 [place] [facility] CBC W/PLT COUNT & AUTO 2019-12-23 04:00:00 [place] [facility] S t [facility] DIFFERENTIAL [facility] SARS-COV2/RT-PCR ([facility] & 2019-12-23 03:59:00 Pat Mohamud [facility] - REF LABS) [facility] POCT-GLUCOSE METER 2019-12-22 20:34:00 Pat Mohamud [facility] POCT-GLUCOSE METER 2019-12-22 16:43:00 Pat Mohamud [facility] POCT-GLUCOSE METER 2019-12-22 11:31:00 Pat Mohamud [facility] POCT-GLUCOSE METER 2019-12-22 06:30:00 Pat Mohamud [facility] COMPREHENSIVE METABOLIC 2019-12-22 05:14:00 [facility] CBC W/PLT COUNT & AUTO 2019-12-22 05:14:00 [place] [facility] S t [facility] POCT-GLUCOSE METER 2019-12-21 20:26:00 Pat Mohamud [facility] POCT-GLUCOSE METER 2019-12-21 17:22:00 Cade, Salman [facility] POCT-GLUCOSE METER 2019-12-21 12:35:00 Cade [facility] POCT-GLUCOSE METER 2019-12-21 07:20:00 Cade [facility] POCT-GLUCOSE METER 2019-12-21 05:52:00 Cade [facility] C-REACTIVE PROTEIN 2019-12-21 04:39:00 Annia Delgado [facility] COMPREHENSIVE METABOLIC 2019-12-21 04:39:00 [facility] CBC W/PLT COUNT & AUTO 2019-12-21 04:39:00 [facility] US ABDOMEN COMPLETE 2019-12-20 21:17:00 April Sakina [facility] POCT-GLUCOSE METER 2019-12-20 20:23:00 Cade [facility] POCT-GLUCOSE METER 2019-12-20 17:31:[address] [facility] [address] BRAIN WITHOUT IV 2019-12-20 16:04:00 [facility] AMMONIA 2019-12-20 14:41:00 [facility] BLOOD GAS, ARTERIAL 2019-12-20 14:28:00 [facility] XR FOOT 2 VIEWS RIGHT 2019-12-20 11:55:00 Annia Delgado [facility] POCT-GLUCOSE METER 2019-12-20 11:28:00 Cade [facility] POCT-GLUCOSE METER 2019-12-20 06:20:00 Cade [facility] OCCULT BLOOD, STOOL 2019-12-20 06:19:00 April Sakina [facility] PT/APTT 2019-12-20 05:06:00 April Sakina Carrillo [facility] FIBRINOGEN 2019-12-20 05:06:00 April [facility]ER 2019-12-20 05:06:00 April [facility] IRON, TIBC, % SAT. 2019-12-20 05:06:00 Sakina Chen [facility] (WITHOUT FERRITIN) [facility] VITAMIN B12 AND FOLATE 2019-12-20 05:06:00 April Sakinara Carrillo [facility] RETICULOCYTE COUNT 2019-12-20 05:06:00 [facility] HAPTOGLOBIN 2019-12-20 05:06:00 [facility] TSH/FREE T4 IF INDICATED 2019-12-20 05:06:00 April Sakina Iqba nicolle [facility] FERRITIN 2019-12-20 05:06:00 April Sakinara Carrillo [facility] ANTI-NUCLEAR ANTIBODY 2019-12-20 05:06:[address] [facility] (ROGER) [facility] KAPPA / LAMBDA LIGHT 2019-12-20 05:06:00 Sakina Chen [facility] PROTEIN ELECTROPHORESIS, 2019-12-20 05:06:00 Sakina Chenba [facility] PERIPHERAL BLOOD SMEAR - 2019-12-20 05:06:00 Sakina Chenba l [facility] - PATHOLOGIST REVIEW Medical [facility] COMPREHENSIVE METABOLIC 2019-12-20 05:06:00 Marcial Chapa [facility] T4, FREE 2019-12-20 05:06:00 April Sakinara Carrillo [facility] ROGER TITER AND PATTERN 2019-12-20 05:06:00 Sakina Chen [facility] CBC W/PLT COUNT & AUTO 2019-12-20 05:06:00 Marcial Chapa [facility] POCT-GLUCOSE METER 2019-12-19 20:35:00 Cade, Salman [facility] POCT-GLUCOSE METER 2019-12-19 16:06:00 Cade [facility] HEMODIALYSIS INPATIENT 2019-12-19 16:02:09 Kassie Luisneha [facility] BASIC METABOLIC PANEL (7) 2019-12-19 05:35:00 Marcial Chapa [facility] LACTATE DEHYDROGENASE 2019-12-19 05:35:[address] [facility] ([facility]) [facility] CBC W/PLT COUNT & AUTO 2019-12-19 05:35:00 Marcial Chapa [facility] POCT-GLUCOSE METER 2019-12-19 05:24:00 Cade Pat [facility] POCT-GLUCOSE METER 2019-12-18 21:35:00 Evens Mohamudluis [facility] POCT-GLUCOSE METER 2019-12-18 16:05:00 Cade [facility] POCT-GLUCOSE METER 2019-12-18 07:45:00 Cade [facility] POCT-GLUCOSE METER 2019-12-18 06:14:00 Cade [facility] POCT-GLUCOSE METER 2019-12-17 21:44:00 [facility] POCT-[facility]UCOSE METER 2019-12-17 17:52:00 Cade [facility] POCT-GLUCOSE METER 2019-12-17 12:22:00 Evens Mohamudluis [facility] HEMODIALYSIS INPATIENT 2019-12-17 10:33:08 Brandie Khan [facility] POCT-GLUCOSE METER 2019-12-17 06:18:00 [facility] CBC W/PLT COUNT & AUTO 2019-12-17 04:14:00 Marcial Chapa [facility] COMPREHENSIVE METABOLIC 2019-12-17 04:13:00 Marcial Chapa [facility] POCT-GLUCOSE METER 2019-12-16 20:55:00 Pat Mohamud [facility] POCT-GLUCOSE METER 2019-12-16 18:24:00 Pat Mohamud [facility] HEPATITIS B SURFACE 2019-12-16 16:02:00 [facility] ANTIBODY [facility] HEPATITIS B SURFACE 2019-12-16 16:02:00 [facility] ANTIGEN [facility] HEPATITIS C ANTIBODY 2019-12-16 16:02:00 [facility] CORE 2019-12-16 16:02:00 Radhainova [facility] es - ANTIBODY, TOTAL [facility] POCT-GLUCOSE METER 2019-12-16 14:47:00 Pat Mohamud [facility] IR TUNNELED DIALYSIS 2019-12-16 14:26:00 Sharri Fernando [facility] CATHETER [facility] HEMODIALYSIS INPATIENT 2019-12-16 12:37:[facility] 2019-12-16 11:01:00 Pat Mohamud [facility] XR CHEST 1 VIEW 2019-12-16 05:55:00 Marcial Chapa [facility] PORTABLE/BEDSIDE [facility] POCT-GLUCOSE METER 2019-12-16 05:51:00 Pat Mohamud [facility] BASIC METABOLIC PANEL (7) 2019-12-16 04:08:00 Marcail Chapa [facility] PROTHROMBIN TIME/INR 2019-12-16 04:08:00 Marcial Chapa [facility] CBC W/PLT COUNT & AUTO 2019-12-16 04:08:00 Marcial Chapa [facility] SARS-COV2/RT-PCR ([facility] & 2019-12-16 01:45:00 Pat Mohamud [facility] - REF LABS) [facility] Plan of Care Planned Activity Planned Date Details Comments Source Future Scheduled 2020-12-[address] [facility] examination [facility] Center (regime/therapy) [code = 207374302] Future Scheduled 2020-12-[address] [facility] 00:00:00 [facility] colon (procedure) [code = 779529172] Future Scheduled 2019-11-[address] [facility] - Test 00:00:00 (#1) [code = Medical Center INFLUENZA VACCINE (#1)] Future Scheduled 2017-08-[address] [facility] Test 00:[facility]:00 measurement [facility] (procedure) [code = 60523699] Future Scheduled [address] [facility] - Test 00:00:00 (procedure) [code = [facility] 45145406] Future Scheduled [address] [facility] - Test 00:00:00 malignant [facility] of [facility] cervix (procedure) [code = 027947046] Future Scheduled 1965 DIABETIC EYE EXAM [facility] - Test 00:00:00 [code = DIABETIC EYE [facility] EXAM] Future Scheduled 1965 Urine screening for [facility] - Test 00:00:00 protein (procedure) [facility] [code = 573588875] Future Scheduled [address] [facility] - Test 00:00:00 malignant neoplasm of [facility] breast (procedure) [code = 364833500] Encounters Start End Encounter Admission Attending Care Care Encounter Source Date/Time Date/Time Type Type Clinicians Facility Department ID 2018-11-17 2018-11-17 Outpatient Alison Wilson [id number] [address] 11:30:00 11:30:00 [facility] Family Medicine Medicine Outpati ent Clinics 2018-10-06 2018-10-06 Outpatient Alison Rosast [id number] 16:14:00 16:14:00 [facility] Family Medicine l Medicine Outpati ent Clinics 2018-09-28 2018-09-28 Outpatient Alison Rosast [id number] 10:30:00 10:30:00 [facility] Medicine Medicine Outpati ent Clinics Results Test Description Test Time Test Comments Results Result Comments Source ANAEROBIC CULTURE 2020-01-04 10:26:00 Test Item Value Reference Range Interpretation Comme nts CULTURE (BEAKER) (test code = 1095) No anaerobes isolated Tissue [id number] 10:21:00 Test Item Value Reference Range Interpretation Comments Case Report (test code Surgical Pathology = 104) Report Case: [id number] Authorizing Provider: Tala Santacruz DPM Collected: 12/30/2019 01:38 PM Ordering Location: [address] Med/Surg Received: 12/31/2019 06:52 AM Pathologist: Jovita Griffith MD Specimens: A) - Soft Tissue, Other, left 5th proximal phalanx B) - Metatarsal, Left, left 5th metatarsal DIAGNOSIS (test code = t3wpkVOeGPMba5riBNMbjN 3220) FuZzEwMzNcZnRuYmpcdWMx ZVpulkEhVSrhf9JvO3WcUj AwMFxhbnNpXGRlZmxhbmcx BZHxDNB9soEjJRJaRMwjKL SvUPajBm8rnNZhlKjaTiNj FOPnq5rgcrZLsfaygJh0b0 prTMDxOsI6tWPoJBboC0bz fhFnrVIxUVZjPQw5dP03LD HafF9vwCLvTGmwabCeSlD7 GQsyBTRaDoL3HBGetIKeRE TjN7saQBYkHEjrAPHzBHzn gCYsJQZ1jJwbl3L1gZBwhD IceRflQsSaUsPqMLPCn0Dw LRh3lGagO6OhAWVdPqV0tP QgUGFyYWdyYXBoIEZvbnQ7 kS79VNcgfiM4bMUco2Rrp5 0om299eO3quNMzMYZ2RKGp NWOqaHThTUXuMVF1XFNskC BoU1p6AwAbbZCjM9U3ZiPg dCEfP5N9LxWxmSUcQ9P9Ah SbqXLjBIRpeBDoNf2zvERs lOIqjk0fzl94RRM2u8CilZ inUBY2XED7EyGiBs3jvCFi NSWnPK6zBwAteFOhRQSank 57gNkiXYbawpBvvB1aGiIn JINqvLDxYLQaZV7vmKWnGX NbkM0qxasfZYJcJeXrdoyq QIKgpTvqpxFtKf5nlEflRF N3TSglN0unkQ0xHcA6HFwk D7gqeA7uUKc4TWayhQV1PA IiwZ5eSL6zmcbsb2udJnPb WW2bidgpy7moDaDqOM2mrf r8c8hjLgNvYL0pnhmwa6hq NzIwXGhlYWRlcnkwXGZvb3 QoohlpZUQmn9MfF1HidTxn L72ivWctO55lWWGwzBvfvQ 2dbYwmuC7zIxUmRmYdUEyn bFxwbGFpblxmMVxmczIwXG cafvmxTUCfDKkjR8aeThFr LYYrqYbaWMymk4IsYELiWM NuFkPiQX4wVz9XUPoxWSZK TMOCRBJEMAAFAu9GVD6GZV INZLOHJY8HAJFDXA5LB2o8 LWHprfLbBPNnXWKZOG7zQ6 rVHIIIEqDTSkvUVC6ZMOHC UlRJTEFHRSBXSVRIIFNVUl UKMR3QLP1CMZZSRJCPENIX RCBDSFJPTklDIElORkxBTU 1BVElPTlxwYXJccGFyIEIu IEJPTkUsIExFRlQgRklGVE ggTUVUQVRBUlNBTCwgQklP UFNZOlxwYXIgICAgLSBBQ1 FZLAOSG2UQY82RTTnUPXxD IFxwYXIgICAgLSBTRVBBUk KBVLSNAgLPEBERWTDoQ7Ch EwmWPv9WU47MGZOBIDDHDU AFF2TLMQIGGICYXSYSN7SJ T5KgZI7YZ7SPF7tRNFJRWC BHUkFOVUxBVElPTiBUSVNT WAHuPs7BINUYOT2XJSYfpt 61NOL1BkGoq4O7XEA1KVVa HRNht0lyAAIruAHnFsRyLb NcZnRuYmpcdWMxXGRlZmYw l0eiw149oEWvh7loQJMcPi I6sHPcDUCccOFaL497PFNm AYocd6ivf6HyJKDhjFZii3 H7FCNBxhlozDp7kIioU64b v3Y5TbzpB3dnBQZdFHSaJ9 OeME0iYYKdFxf7RHV6UWX9 TQKpICIwZ6LnDV0oTXCfwW CoQRi6q8abtPchKOZcCID5 p8upLCfurtQkBZ4fkv7jrN p6n1uceyRbJPGyMNKsxGSY VXRyG4ZvhYvhKt2dqEu9cA vaDpspGLI5Wmb9HM0nga62 our5eYhgFJZmuzmsEkK7XU tvHINmrervGTm3MQknABNx lRW2BQVbqJErE5PrLXEqZX 5axpo0MZT2DSdkLSEpMuK4 NDBcaGVhZGVyeTcyMFxmb2 45LQH4TzIwQY0iJ0Wnw8S4 wT8ngKRpRNRvtZMtIfOnOA Spdh5grQUyTBkok0DoDIW6 hhC3jKFsoAAePZXnSmG5UD jaIK2bnm29PXTaPIJ8oz2n bGNccGdicmRyaGVhZFxwZ2 FaUBAqe830CKKcE6MnCJJn p6E1ctCtQqGhFWYqpRO3po W4CWOgRN8ahgwur7lvWYll JJogFENwtoX5ziS3VUAmkF RpG2OcqI6zAPOkWV8bvjgm l5qwGCI2XNihCVEeMMV8Sf ZvZUPzc0Ifdbn6YjKhi3Eo vTOlAUcvX63ah046VCObgf HdM7ufbHFjqplypURcytlw YFxwlkV9KQItUJbcpxweJU DpYZulW1usJnWiLCDnsQxv VFwep0ZzNNJuPXNnZrOgaL UrYXVqLoo5DZVbqVXkIAAx MzYwF8fvuldqGbTXTDBmz9 rtO4xgwAPEsVLqN9DvJPiw amHtMMgmAPtpWPD8CUW0Ex 53DkJ5UEDdcy33 CPT Code(s) (test code c6lvvKRaRHSklPEjRgCrWX = 3356) SaMPBcd9ibYJPuiTNeGqNb MzNcZnRuYmpcdWMxXGRlZm Ohk4thm759xACjl7qgILEa AoA9xHIwQWDmvZVbL380i5 qgm0lvgsUehPY6MJAjJBJ1 FAjrzpXcscD5AQornABvSu M2LKtkvsYcLTatdwPqzcNt Mhm6MGMdD052MNC8bFvtl0 liQWB0NBIgXNHlXaWwOd4t rUBgY614JEXrQYSTLONmnB w3CKAsojZinaTgoORGv456 S418k4mtEXCcrgLusBmVkr rjj4abN692FHRveEDbwuPa FsHpLFIqlARmrIN7BBGjDM 1ksqecLiLpZN7jfifgHmJw GA2hnhs1XtRnYA1xewauYm HmOBfrTTXflilsFMLit1Ua mpjwKR8sL1Gop4G2mJ3yuX EgKINvnGXqKhOyZNGgis4m fCRaKSbsr7WuVLF0euC9aR QtnAHmJHOiES81Afwsw8Vo AksrZHI7FHOjuuQyl9Jdz9 vbPwFaedPoP4zkN6KiNEYe QXOrHKHvCbRwxdFqo6Cdz9 SutRAlmJw3a4zbXKChDGXl qOhle6kiJXW1BMGhC9B0zY Jia2hkACqeIGQnfKG2whmz VPieQKAekfG2hpqcQWhjGG GjcKM9ncgvEPaqIEPiQbF4 etpsBDfmYKGwSBM1HPwpe8 21RJE5OIkgCzryXGmjXYCy bmNvbnRccGduZGVjXHBsYW luXHBsYWluXGYwXGZzMjRc xPhxpTdylJ1iEhCmUiYhGN tkPY7wDBVsR5udaHVfYNDw IXToK1mrCcEtuH4rqMfpRS xyrvAuCT5LX3B7CNWgnxY5 HMSeTzW9FwvrEXRvBQgqLM EgeDJccGFyfQ== CLINICAL HISTORY (test p9lsfTTfRLGqjVKmYrGvQK code = 3356) UiVOHba7cqUCKpiVHcZaXd MzNcZnRuYmpcdWMxXGRlZm Zbo4fut326fXOro4gdGGCk KpG6oBRmDEIenQThU857k1 lqo9nnkfLhnHC2BMOaVZK4 HNmnauVvktW7RZaxlNRvIa O7TVlzypItRTicteTvqpXz Cxl7YUJpK436NVI5iFgir7 vnSHV9GTMvCAAnWlViJn5e dLZrG765CIYyEDGBHAGzxD m8OZDsggCsfkTncHBDd041 E036t1woXALrfeVlxFaKwj bhc8ykH816VKUzoCUacvDx FpTuNPFbcAKljJS8EUVrXB 4ckfzlFfOyFO7wzucxMrQr KP1acev7HrSpAO9gghijFv WfEOqxUQDhtmnbIIXma7Cw ntrfBM1hA8Twa5K7vK5hoP GlXDRjbZXkTkOfMKRywb8g iNTtSUbey7PtUFT8xjF7dY QmbSIaUVXyZI35Ceqgd3Ib KqevYXD9EQVxmtJsu8Epg6 ikXcBoaxSgJ3jnZ0OlECOo JYRzENOsWqZwutFfk5Nio8 QgcSMkfRe0o0moIUSrSFLw fYkfa3brQFC7NTBuN4S4vC Huk4ayIHbnBYRtjSK9npba OJizHGSsdeF7ujzoYFlzQF ShrPG6nogrJRzeAQCiJnL0 jntjZCzlRHUwHTH4LInny0 42LKA4GGuaMwlzROmrSBNz bmNvbnRccGduZGVjXHBsYW luXHBsYWluXGYwXGZzMjRc rPnwjSrxpO3lVtRgNyPvXQ qrZS6fSFVmM2iaxFQvAXPy SLTcQ7bhXrPreN3vcSuyQS lmtoPgHV6upGKyxMdjnSs4 bOBrx7ZhxVWvbWH9nWpebG C9WJGyzmApeLprbOmnNMWh d5ShWbifEVJowiBkVOApIO RccGFyfQ== SPECIMEN SOURCE (test p5oxrKTqUGLfyPGdFyTvHC code = 3377) JxXLQoi3ixZEObeJDiEmYe MzNcZnRuYmpcdWMxXGRlZm Lzq6kez391hXZer8wfVLMp ZyN4mTOvGTYulJGdI983a0 hwz5qugkYfhYO4BQRdSZA4 SAkvhaJwzcS1UMvvaZEpXp Q2LShdetWfSGdvdbZuvgVv Wck4YKTuC046KFY2pJpfo3 yrTHR6FGErQAJaTgHoIi9h xIOeB393IOZtUFQKCPMytE p9ZUNxfmQbhhSgtLYZx936 Q014u4dcBGJyeuNmjXwYjl nwc4baJ087DAUieJZktlKe OuWfHVDztCFhmTP5YZUvVB 5dhpzxCsAyXK7egkjvCmFi DA7ltjp4DiYiNS1wetakPn EzVPbjIKPhogtkBODen5To oxrtSJ1hH3Cuo0C5jV7syG BaZQWfqSCeLwMzZMSebh5i uVGcBFsal9ZgFGI0rwC9hN GugANkJYPqNE22Hvhmu4Rq AumgSYV4DJHtvsHyg3Gds4 kjDeBlzaQoP8geH3DgEGCo WBEaHATjIwLcwcHay0Yoz2 AhnGDxtRd1i5waWDEbSGXq bGdbb6enHAA8TMFdH6Z8zR Tzu8xyFVicKDBnxZZ3gamj MKftLMMycmC0zcddFJajEV HkpBU0zgvzJJhuVVQjOxQ1 yhigITskDYHxRGG3XAgcz2 87STX8MWicIjcjORqiBJJz bmNvbnRccGduZGVjXHBsYW luXHBsYWluXGYwXGZzMjRc bFywoTcroE5gQhUxOjIvGZ ffBM4uKHXvB1nbqTSjCFLb ODZsV0vbGhMjkZ7pgOtbDU xmczIwIEEuIExlZnQgNXRo NQUxi3ecxTPvNEEaQFkmge afMUPbOLyxPdWoUDEcXS9g yBN1QZSdAKlfHCWtdw7= GROSS DESCRIPTION (test o3dpmIXeRABrdZKaBuOmEX code = 3366) IvGLFgz0tqHTCwgZImSxAb MzNcZnRuYmpcdWMxXGRlZm Eby3gmg837tBIgf4ulTPYs YrP7kZEiSFZntZBsW137WX OqLKzaw1qiq1SqYTSegUZn o3Q5PSNHwevstLq7gTipF4 9hb3Z4CavlN8evIKDvFUDs C4GuJA1uOFFyEnq0VCE8JG G8WZKnJXTaZ6ZbER8zSFQa hHJxWHq6l7cwlZsdBMKgVJ Y7x5zrQKnwsrOhFC7jug1s wGd9d1qoffNaEJGxGHDjcV MVXDRoI1FoxPuhBg9vbKe6 zSxlHnsmPMZ4Szo7XU1yqv 09slm0mBfdSLNrtrsuZrN3 CDdxVRBtbixoCTf9PDlpWZ JnbDcyMFxtYXJncjcyMFxt YXJndDcyMFxtYXJnYjcyMF eyYEYvCWF0CEfal139RDE8 BKjto2udj6mboNCmJbw5HO KiCuGnWojdKJlek8Nkh0je ODTatu2zVGK4vJIaaBsbc2 R9pCGiYKEwdZVyihMbKOXx BqN0QVwzRT2qgz97AORiBW B9ra7snCIzxLofaqQsmVBb YMxnN1TcORUzl236WFUmN8 KpBUQbw5X1cvLvCaHdMGKo uXE4vjX9TFAuYEi0nPHslr Y6nmUrvOZlA3xouM17PyFh fDQsE3OiwQ53VmLaiRCbY4 DvfB41CvWkqSPsT0ZrlW42 TcGeySUrBNYcnQQsQr5chE UygEXig3NsiIIkUSsvK49i a437OPAsjtChE5uuyWMqhg xlvZNwdnfeJOcogwC0XTBu XHBsYWluXGYwXGZzMjBcbG FuZzEwMzNcaGljaFxmMFxk RsJxJEJxBTngH0itTrZpZk FyLGDOjVLqfP5gjaQYDZgk BSErH5LthbYnQLogHPJxnQ N4sQZwKBhoBjOnBKPna5f4 yDL0dWShyRY3uZSxyJjhFC 5cvTReYQ5iAL1cUDzjOJci cyFfd7VvSS92jAMeldSjyg QgZGVzaWduYXRlZCBhcyAi g70xqMQ2eVXpgAXsTE29kM FhHifzC74oo3wzwXLep1Fk g5uimQTvmTIyiO57RQLwkt YaKmPrW64jxkJhSU1cJWO4 cmluZyAwLjcgeCAwLjMgeC KfNoYlZ02zLODbHHMxoSAk dY8qrqPbrbWguIIsiCC4QJ GxTA32oXBcdSnooQ43ikOQ MCKfvkLxhB42rqBuVCUohO Noq1m1cJftfr7pkFIfPOOw cdWIbHMhyQ2pgxDFWNtzXW NyA6PfhzKjIOvjAZCunZQ9 bFQyEJajVrVeSBTrn0s4qD Y1dXPjbWE3sVPwpYfnAU2l aWAoCE3gWI4pEWlhOFcruw Qtm1YxIR93jRIcogHikqYf ZGVzaWduYXRlZCBhcyAibW R2QNJiyuAcnNJnAZU2Eaju F04zr9pyoYTqb5JgTj22cd GkZXRpCfXss27aoEfts9Th YDNdTQRzn46rZXJqWXyiED 98tlJzKEIliKCtlsifSf6n EMjvYX17HVelCX80JBMmWN qaILVkD5RfB8G0ZJ0lxSqg IHNwZWNpbWVuIGlzIGVudG rcWRo3EPvehLHgxewqOMuc czIwXGxhbmcxMDMzXGhpY2 qbUxFqRXOxoIuwGHyec6Ox XGNnSWCkJtSrAjJkYI2yWA lytI5dGEMbMZrti35myFAi a00xEWAsHTchZSOiXDSkJd BcbGFuZzEwMzNcaGljaFxm AOiuCiIpREBlJHemS8qnTa BcZnMyMCAgTUcvZXdccGFy fQ== MICROSCOPIC DESCRIPTION f1guyVMeHONomWHgIsHiKN (test code = 3371) EtXCSnj7coNFFtkVSnLuCc MzNcZnRuYmpcdWMxXGRlZm Tjf3wmp152pWLlf1wiLOIo DgE1zLNjXFTxtTNxI189m1 jzk1kbsnIpzOK1IUOfIUV1 CMyuugLqkbN8ZYixnRXzUv G5BEshneUuWKafkqKrztWg Jtq3HFZeP531OHG3fXhgo8 yrWRZ5AVTbIYEhRcXcHq3r sGLnI579MBIcABBSUAAfuQ m1EZTwqcJcooCgnELFd368 J135y8abOAWbgzAzlQwUan gtu0wiR038KHOgsNIzkkOq ItBlTGNmdYTiyDX1XNAlOK 6xdeocOoRoEU4lgzqxHhLi SF1ybrr4QlKgNT6ybufdZe WqYNtqHYSgaboyLMLwc8Kp vnhgCI6sM7Ooz6U5zB4trT JfKQQngQPgHpRrKYLmas1x qZLcBOwut2IoUCJ4ihD6rJ CnaOZlDIZbBL42Bycng5Ly LmusHNT9MIDtchIot1Atv5 rbKqCgszSaA0smG9XyCCUw LUVcEZWvEyJydiFru1Bgx0 FpzKLayCf7k0wfBIJbNEDr oMynx7zkEDZ6LBNlM1C0vF Pwh4vuADwiRVSlsXV0wcgm TEtsQBSgjrY2qrnwNZuaKP GbbXL7dqukONoxPSQpWjN3 xdaqZPgtSRErAAE8LIvdv1 11ECT0WPzzDeudIIdjOGIt bmNvbnRccGduZGVjXHBsYW luXHBsYWluXGYwXGZzMjRc cGxnxJsjnV3lVhDmQfGkXL kaNK0gSUFaQ3gbaIQdAUMp KAOdG0awYgAkyU0fqIvgZS otbwIyAQRtVt5cCXXoEt1j bWVkLlxwYXJ9 Gross assessment was [facility] performed at ([facility], Department = 2777) of Pathology, [address] [place] [address], Technical component was [facility] performed at ([facility], = [facility]) Department of Pathology, [address] [place] [address], [address] [facility] was performed at ([facility], Department code = 2779) of Pathology, [address] [place] [address], [facility] [id number] 10:21:00Surgical Pathology Report Case: [id number] Authorizing Provider: Tala Santacruz DPM Collected: 12/30/2019 01:38 PM Ordering Location: [address] Med/Surg Received: 12/31/2019 06:52 AM Pathologist: [...] TISSUE FORMATION Signing Pathologist Direct Phone Line: [phone] signed by Jovita Griffith MD on 01/04/2020 at 10:21 AMMG/[id number] [id number] of left 5th metatarsal, ulcer of bilateral [...] entirely B1 and into decal solution. MG/Veronica-B. Performed.[facility], Department of Pathology, [address] [place] [address], Jwhqjv [facility], Department of Pathology, [address] [place] [address], [facility], Department of Pathology, [address] [place] [address], JQRMPECAL [id number] 10:47:00 Test Item Value Reference Interpretation Comments [...] negative Staphylococcus SURGICALLY OBTAINED CULTURE + GRAM [id number] 08:31:00 Test Item Value Reference Range Interpretation Comments CULTURE (BEAKER) (test code No growth = 1095) GRAM STAIN RESULT (BEAKER) <1+ WBCs (test code = 1123) GRAM STAIN RESULT (BEAKER) No organisms seen (test code = 73500) SURGICALLY OBTAINED CULTURE + GRAM [id number] 08:19:00 Test Item Value Reference Interpretation Comments Range CULTURE (BEAKER) STENOTROPHOMONAS A 2+ Sten otrophomonas (test code = 1095) MALTOPHILIA maltophil ia Levofloxacin (test S code = 22) Trimethoprim + S Sulfamethoxazole (test code = 47) GRAM STAIN RESULT <1+ WBCs (BEAKER) (test code = 1123) GRAM STAIN RESULT No organisms seen (BEAKER) (test code = 820088) POC-Glucose [id number] 06:47:00 Test Item Value Reference Range Interpretation Comments POC-Glucose Meter (test 102 mg/dL 70-110 : TE STED AT [facility] code = 1538) [address] [facility], [facility] [address]: [employer] Manager/Techni artemio ID = [id number] for Anne Salgado Lab Interpretation (test Normal code = 10068-0) [facility] [id number] 06:47:00 Test Item Value Reference Range Interpretation Comments POC-GLUCOSE METER 102 mg/dL 70-110 : TESTED A T [facility]17 (BEAKER) (test code [address] [facility], = 1538) [facility] 77 [address]: [employer] Manager/Techni artemio ID = [id number] for Anne Busby Comprehensive metabolic [id number] 06:34:00 Test Item Value Reference Range Interpretation Comments Protein, Total (test 6.1 6.0- 8.5 gm/dL code = 2885-2) Albumin (test code = 2.3 g/dL 3.5-5 L 35908-1) Alkaline Phosphatase 81 U/L 30-115 (test code = 6768-6) Total Bilirubin (test 0.4 mg/dL 0.1-1.2 code = 1975-2) Sodium (test code = 137 meq/L 127-882 7703-2) Potassium (test code = 3.7 meq/L 3.6-5.5 2823-3) Chloride (test code = 100 meq/L 98-106 5-0) CO2 (test code = 28 meq/L 20-29 8-9) BUN (test code = 14 mg/dL - 3094-0) Creatinine (test code 2.31 mg/dL 0.5-1.2 H = 2160-0) Glucose (test code = 100 mg/dL 70-110 2345-7) Calcium (test code = 7.5 mg/dL 8.5-10.5 L 91271-2) AST (test code = 15 U/L 5-40 1920-8) ALT (test code = 6 U/L 5-50 1742-6) EGFR (test code = 21 mL/min/1.73 [place] [address]-7) NOT ACCURATE CREATININE CLEARANCE IN PREDICTING GLOMERULAR FILTRATION RATE . ESTIMATED GFR I S NOT APPLICABLE FOR DIALYSIS PATIENTS. ZIA (test code = ZIA) [employer] Manager ID - ADMIN Lab Interpretation Abnormal (test code = 20259-6) [facility] HospitalCOMPREHENSIVE METABOLIC [id number] 06:34:00 Test Item Value Reference Range Interpretation [...] = 382) CO2 (BEAKER) (test 28 meq/L - code = 355) BLOOD UREA NITROGEN 14 [...] S NOT APPLICABLE FOR DIALYSIS PATIEN TS. [employer] Manager ID - ADMINCBC with platelet count + automated [id number] 06:06:00 Test Item Value Reference Range Interpretation [...] K/CU MM L MPV (test code = 66213-9) 10.5 fL 6-11.5 nRBC (test code = [...] 2801) Lab Interpretation (test code = Abnormal 85248-6) [facility] W/PLT COUNT & AUTO [id number] 06:06:00 Test Item Value Reference Range Interpretation [...] PERCENT (BEAKER) (test code = 2801) POCT-GLUCOSE [id number] 21:02:00 Test Item Value Reference Range Interpretation Comments POC-GLUCOSE METER 167 mg/dL 70-110 H : TESTED A T [facility] 1317 (BEAKER) (test code [facility], = 1538) [place] [id number]: [employer]pper Insights Manager/Techni artemio ID = [id number] for Anne Busby POCT-GLUCOSE [id number] 18:12:00 Test Item Value Reference Range Interpretation Comments POC-GLUCOSE METER 121 mg/dL 70-110 H : TESTED A T [facility] [address] (BEAKER) (test code [facility], = 1538) [place] [id number]: [employer]pper Insights Manager/Techni artemio ID = [id number] for Cortney Cohen POCT-GLUCOSE [id number] 11:54:00 Test Item Value Reference Range Interpretation Comments POC-GLUCOSE METER 117 mg/dL 70-110 H : TESTED A T [facility] [address]17 (BEAKER) (test code [facility] = 1538) [place] [id number]: [employer] Insights Manager/Techni artemio ID = [id number] for Aydin Coheninor COMPREHENSIVE METABOLIC [id number] 06:47:00 Test Item Value Reference Range Interpretation [...] S NOT APPLICABLE FOR DIALYSIS PATIEN TS. [employer] Ins[employer] Manager ID - [id number] 06:42:00 Test Item Value Reference Range Interpretation Comments Magnesium (test code = 1.6 mg/dL 1.5-3 26215-7) ZIA (test code = ZIA) [employer] Manager ID - ADMIN Lab Interpretation (test Normal code = 09261-4) [facility] [id number] 06:42:00 Test Item Value Reference Range Interpretation Comments POC-GLUCOSE METER 101 mg/dL 70-110 : TESTED A T [facility] [address] (BEAKER) (test code [facility] [address], = 1538) [facility] [address]: [employer] Insights Manager/Techni artemio ID = [id number] for Anne Busby [id number] 06:42:00 Test Item Value Reference Range Interpretation Comments MAGNESIUM (BEAKER) (test code = 1.6 mg/dL 1.5-3.0 627) [employer] Manager ID - ADMINCBC W/PLT COUNT & AUTO [id number] 06:37:00 Test Item Value Reference Range Interpretation [...] % 0-0 PERCENT (BEAKER) (test code = 2803) POCT-GLUCOSE [id number] 20:24:00 Test Item Value Reference Range Interpretation Comments POC-GLUCOSE METER 155 mg/dL 70-110 H : TESTED A T [facility] [address] (ROBERT) (test code [address], = 1538) [facility] [address]: [employer] Insights Manager/Techni artemio ID = [id number] for Anne Busby POCT-GLUCOSE [id number] 16:39:00 Test Item Value Reference Range Interpretation Comments POC-GLUCOSE METER 164 mg/dL 70-110 H : Notified RN/MD: TESTED (ROBERT) (test code AT [address] = [address], [place] [address]: [employer] Insights Manager/Techni artemio ID = [id number] for Alondra Kelley SARS-CoV2/RT-PCR (Asymptomatic ONLY)2019-12-30 15:57:00 Test Item Value Reference Range Interpretation Comments SARS-COV2/RT-PCR Negative Not Detected, (test code = Negative, See 31225-4) external report for linked test SARS-COV-2 [facility] PER[facility] (test code = 89445-5) ZIA (test code = Negative result for [...] of the Act. Fact Sheet for Healthcare Providers:https://www.[employer]oydgo[employer].com/sites/default/f loco/product/documents/F act_Sheet_HC_Providers_L rfg_OCVR-VrC-1.pdf Fact Sheet for Healthcare Patients:https://www.[employer]/sites/default/fi les/product/documents/Fa ct_Sheet_Patients_Lyra_S ARS-CoV-2.pdf Performing Laboratory:[facility] [place] [address] [facility])2019-12-30 15:57:00 Test Item Value Reference Range Interpretation Comments SARS-COV2/RT-PCR (test Negative Not Detected, Negative, code = 5047349) See external report for linked test SARS-COV-2 PERFORMING LAB [facility] JANET (test code = 0010628) Negative result for this test determines that [...] 564(g) of the Act.Fact Sheet for Healthcare Providers:https://www.[employer]/sites/default/files/product/documents/Fact_Shee z_MQ_Hyhxmzrjx_Cijn_TPAV-NiX-6.pdfFact Sheet for Healthcare Patients:https://www.[employer]/sites/default/files/product/ documents/Nuuu_Qadav_Qrlshfsu_Gscj_EOJE-IyI-5.pdfPerforming Laboratory:[address]alexys [place], [place] [address]SEWT-VBVAHYX METER 2019-12-30 11:50:00 Test Item Value Reference Range Interpretation Comments POC-GLUCOSE METER 82 mg/dL 70-110 : Notified RN/MD: TESTED (BEAKER) (test code = AT [facility] [address]) [facility] [address]: [employer] Insights Manager/Techni artemio ID = [id number] for Alondra Kelley WOUND CULTURE + GRAM [id number] 10:45:00 Test Item Value Reference Interpretation Comments [...] gram negative (BEAKER) (test code rods = 494524) POCT-GLUCOSE [id number] 05:50:00 Test Item Value Reference Range Interpretation Comments POC-GLUCOSE METER 103 mg/dL 70-110 : Notified RN/MD: TESTED (BEAKER) (test code AT [facility] [address] = 1538) [facility] [address]: [employer] Insights Manager/Techni artemio ID = [id number] for Zonia Healy COMPREHENSIVE METABOLIC [id number] 05:44:00 Test Item Value Reference Range Interpretation [...] S NOT APPLICABLE FOR DIALYSIS PATIEN TS. [employer] Manager ID - ADMINCBC W/PLT COUNT & AUTO [id number] 05:29:00 Test Item Value Reference Range Interpretation [...] PERCENT (BEAKER) (test code = 2801) POCT-GLUCOSE [id number] 21:21:00 Test Item Value Reference Range Interpretation Comments POC-GLUCOSE METER 185 mg/dL 70-110 H : Notified RN/MD: TESTED (BEAKER) (test code AT [facility] [address] = 1538) [facility] [address]: [employer] Insights Manager/Techni artemio ID = [id number] for Zonia Healy POCT-GLUCOSE [id number] 11:21:00 Test Item Value Reference Range Interpretation Comments POC-GLUCOSE METER 143 mg/dL 70-110 H : Notified RN/MD: TESTED (BEAKER) (test code AT [facility] [address] = 1538) [place] [address]: [employer]pper Insights Manager/Techni artemio ID = [id number] for Alondra Kelley COMPREHENSIVE METABOLIC [id number] 06:27:00 Test Item Value Reference Range Interpretation [...] S NOT APPLICABLE FOR DIALYSIS PATIEN TS. [employer] Insights Manager ID - ADMINPOCT-GLUCOSE [id number] 06:21:00 Test Item Value Reference Range Interpretation Comments POC-GLUCOSE METER 73 mg/dL 70-110 : Notified RN/MD: TESTED (BEAKER) (test code = AT [address], [facility] [address]: [employer] Insights Manager/Techni artemio ID = [id number] for Zonia Healy CBC W/PLT COUNT & AUTO [id number] 06:00:00 Test Item Value Reference Range Interpretation [...] PERCENT (BEAKER) (test code = 2801) POCT-GLUCOSE [id number] 20:48:00 Test Item Value Reference Range Interpretation Comments POC-GLUCOSE METER 84 mg/dL 70-110 : Notified RN/MD: TESTED ([facility]) (test code = AT [address]) [place] [address]: Shopper Insights Manager/Techni artemio ID = [id number] for Zonia Healy POCT-GLUCOSE [id number] 17:51:00 Test Item Value Reference Range Interpretation Comments POC-GLUCOSE METER 59 mg/dL 70-110 L : TESTED A T [facility] [address]17 (BEAKER) (test code = [address] [facility], 153) [place] [address]: [employer]pper Insights Manager/Techni artemio ID = [id number] for Christina r, Berta POCT-GLUCOSE [id number] 13:28:00 Test Item Value Reference Range Interpretation Comments POC-GLUCOSE METER 67 mg/dL 70-110 L : TESTED A T [facility] [address] (BEAKER) (test code = [address] [facility]) [place] [address]: [employer]pper Insights Manager/Techni artemio ID = [id number] for Christina r, Berta POCT-GLUCOSE [id number] 06:04:00 Test Item Value Reference Range Interpretation Comments POC-GLUCOSE METER 94 mg/dL 70-110 : TESTED A T [facility] [address] (BEAKER) (test code = [address]) [place] [address]: [employer]pper Insights Manager/Techni artemio ID = [id number] for Anahi Sherman COMPREHENSIVE METABOLIC [id number] 05:35:00 Test Item Value Reference Range Interpretation [...] S NOT APPLICABLE FOR DIALYSIS PATIEN TS. [employer] Insights Manager ID - ADMINCBC W/PLT COUNT & AUTO [id number] 04:56:00 Test Item Value Reference Range Interpretation [...] PERCENT (BEAKER) (test code = 2801) POCT-GLUCOSE [id number] 20:43:00 Test Item Value Reference Range Interpretation Comments POC-GLUCOSE METER 137 mg/dL 70-110 H : TESTED A [facility] 1317 (BEAKER) (test code [facility] [address] = 1538) [place] [address]: Shopper Insights Manager/Techni artemio ID = [id number] for Anahi Sherman MR, EXTREMITY, LOWER, WITHOUT CONTRAST, [id number] 16:55:00MRI LEFT FOOT.Unlisted Reason for Exam - [...] 16:55:07 Reading Location: [facility] Radiology Reading Room MR lower extremity without IV contrast left [id number] 16:55:00Interface, External Ris In - 12/27/2019 4:57 [...] the first metatarsal remnant. Signed: Lynda Ring MDReport Verified Date/Time: 12/27/2019 16:55:07 Reading Location: [facility] Radiology Reading Room Electronically signed by: Adrienne CHU 12/27/2019 04:55 [facility] [id number] 14:19:00 Test Item Value Reference Range Interpretation Comments POC-GLUCOSE METER 232 mg/dL 70-110 H : TESTED A T [facility] 1317 (BEAKER) (test code [address], = 1538) [facility] 77 478: Shopper Insights Manager/Techni artemio ID = [id number] for Christina dylon Berta CT, CTA AAA, W/ GÓMEZ.EXT.ZPIMMW9415-51-41 11:38:00Bilateral lower extremities Addendum BeginsREPORT STATUS:A I agree with the nonvascular findings with exceptions and emphasis as below:*Moderate right and small left pleural effusions are partially visualized.*Large volume ascites.*Diffuse anasarca*The reflux of contrast into the hepatic veins is concerning for volume overload. Signed: Molly Linares MDReport Verified Date/Time: 12/27/2019 11:38:28 Reading Location: [facility] Diagnostic Imaging Reading Room - [address] angiography of the abdominal aorta and runoff, 26-Dec-19 INDICATION: This is a 64 year old female with with lower leg penetrating trauma presents for assessment. TECHNIQUE: Spiral acquisition before and during intravenous contrast administration using a [employer] multidetector CT scanner. Images were obtained before [...] identified. However, significant calcification identified of the [place] left SFA, for example at image 516, [...] the right popliteal artery is patent, with dffh-ju-eqzanwuz diffuse calcification identified with no obstructive lesion [...] However, in the distal left SFA, the [place] artery substantial calcification identified and the stent [...] atherosclerosis identified. 4. In the right, the [place] right SFA is not filled by contrast [...] dictated regarding the non-vascular findings by the Airfield Operations Specialist Radiologist. Signed: Shlomo Dockery MDReport Verified Date/Time: 12/27/2019 07:59:51 Reading Location: [place] [address] [address] Reading Room Protein electrophoresis, serum 2019-12-27 [...] detected. Pathologist: (test code Rocio Galindo, = 2877) (electronic signature) Protein, Total (test 6.3 6.0- 8.3 gm/dL code = 2660) ZIA (test code = ZIA) Shopper Insights Manager ID - LEONIE Jay Lab Interpretation (test Abnormal code = 66628-6) [facility] HospitalPROTEIN ELECTROPHORESIS, [id number] 09:29:00 Test Item Value Reference Range Interpretation [...] chronic inflammatory response. No monoclonal bands detected. [id number] Rocio Galindo MD (BEAKER) (test code = (electronic signature) 2616) PROTEIN TOTAL SERUM, 6.3 gm/dL 6.0-8.3 SPEP (BEAKER) (test code = 2660) Shopper Insights Manager ID - LEONIE FCTA AAA and [id number] 07:59:00Interface, External Ris In - 12/27/2019 11:40 AM CDTAddendum BeginsREPORT STATUS:A I agree with the nonvascular findings with exceptions and emphasis as below:*Moderate right andsmall left pleural effusions are partially visualized.*Large volume ascites.*Diffuse anasarca*The reflux of contrast into the hepatic veins is concerning for volume overload. Signed: Molly Linares MDReport Verified Date/Time: 12/27/2019 11:38:28 Reading Location: [facility] Diagnostic Imaging Reading Room - [place] [address] [address] CT angiography of the abdominal aorta and runoff, 26-Dec-19 INDICATION: This is a 64 year old female with with lower leg penetrating trauma presents for assessment. TECHNIQUE: Spiral acquisition before and during intravenous contrast administration using a [employer] multidetector CT scanner. Images were obtained before [...] identified. However, significant calcification identified of the [place] left SFA, for example at image 516, [...] the right popliteal artery is patent, with aizp-dh-gypodbnl diffuse calcification identified with no obstructive lesion [...] However, in the distal left SFA, the [place] artery substantial calcification identified and the stent [...] atherosclerosis identified. 4. In the right, the [place] right SFA is not filled by contrast [...] dictated regarding the non-vascular findings by the Airfield Operations Specialist Radiologist. Signed: Shlomo Dockery MDReport Verified Date/Time: 12/27/2019 07:59:51 Reading Location: [place] [address] [address] Reading Room [facility] [id number] 06:56:00 Test Item Value Reference Range Interpretation Comments POC-GLUCOSE METER 39 mg/dL 70-110 LL : Notified RN/MD: TESTED (BEAKER) (test code = AT [address]) [place] [facility] [address]: Shopper Insights Manager/Techni artemio ID = [id number] for Anahi Sherman COMPREHENSIVE METABOLIC [id number] 06:15:00 Test Item Value Reference Range Interpretation [...] S NOT APPLICABLE FOR DIALYSIS PATIEN TS. Shopper Insights Manager ID - ADMINPOCT-GLUCOSE [id number] 06:01:00 Test Item Value Reference Range Interpretation Comments POC-GLUCOSE METER 55 mg/dL 70-110 L : Notified RN/MD: TESTED (BEAKER) (test code = AT [address], [facility] [address]: Shopper Insights Manager/Techni artemio ID = [id number] for Anahi Sherman CBC W/PLT COUNT & AUTO [id number] 05:44:00 Test Item Value Reference Range Interpretation [...] PERCENT (BEAKER) (test code = 2801) POCT-GLUCOSE [id number] 21:03:00 Test Item Value Reference Range Interpretation Comments POC-GLUCOSE METER 278 mg/dL 70-110 H : Notified RN/MD: TESTED ([facility]) (test code AT [facility] [address]) [place] [address]: Shopper Insights Manager/Techni artemio ID = [id number] for Anahi Sherman POCT-GLUCOSE [id number] 16:53:00 Test Item Value Reference Range Interpretation Comments POC-GLUCOSE METER 70 mg/dL 70-110 : TESTED A T [facility] 1317 [facility] (test code = [address] [facility], 153) [place] [address]: Shopper Insights Manager/Techni artemio ID = [id number] for Nalini Jean Baptiste POCT-GLUCOSE [id number] 12:11:00 Test Item Value Reference Range Interpretation Comments POC-GLUCOSE METER 97 mg/dL 70-110 : [facility] (test code = [address] [facility], 153) [place] [address]: Shopper Insights Manager/Techni artemio ID = [id number] for aNlini Jean Baptiste POCT-GLUCOSE [id number] 06:21:00 Test Item Value Reference Range Interpretation Comments POC-GLUCOSE METER 71 mg/dL 70-110 : [facility] (BE[facility]ER) (test code = [address] [facility], 153) [facility] 77 478: Shopper Insights Manager/Techni artemio ID = [id number] for Holly Alamo COMPREHENSIVE METABOLIC [id number] 05:50:00 Test Item Value Reference Range Interpretation [...] S NOT APPLICABLE FOR DIALYSIS PATIEN TS. Shopper Insights Manager ID - ADMINCBC W/PLT COUNT & AUTO [id number] 05:17:00 Test Item Value Reference Range Interpretation [...] (BEAKER) (test code = 2801) Prepare Leuko-Red [id number] 23:54:00 Test Item Value Reference Range Interpretation Comments CROSSMATCH (test code = 2264) COMPATIBLE Unit ABO (test code = O Pos 7448237) UNIT NUMBER (test code = [id number] 934-0) Status (test code = 1078969) [facility] Blood Bank Product (test code RED BLOOD CELLS = 2263) PRODUCT CODE (test code = [id number] 933-2) [facility] HospitalPOCT[facility]SE [id number] 21:03:00 Test Item Value Reference Range Interpretation Comments POC-GLUCOSE METER 87 mg/dL 70-110 : TESTED A T [facility] [address] (BEAKER) (test code = [address], [address]) [place] [address]: Shopper Insights Manager/Techni artemio ID = [id number] for Nwad iufu, Holly POCT-GLUCOSE [id number] 17:12:00 Test Item Value Reference Range Interpretation Comments POC-GLUCOSE METER 79 mg/dL 70-110 : TESTED A T [facility] [address] (BEAKER) (test code = [address], [address]) [place] [address]: Shopper Insights Manager/Techni artemio ID = [id number] for Nalini Jean Baptiste POCT-GLUCOSE [id number] 11:37:00 Test Item Value Reference Range Interpretation Comments POC-GLUCOSE METER 262 mg/dL 70-110 H : TESTED A T [facility] [address] (BEAKER) (test code [address], = 1538) [place] [address]: Shopper Insights Manager/Techni artemio ID = [id number] for Nalini Jean Baptiste COMPREHENSIVE METABOLIC [id number] 06:29:00 Test Item Value Reference Range Interpretation [...] S NOT APPLICABLE FOR DIALYSIS PATIEN TS. Shopper Insights Manager ID - ADMINCBC W/PLT COUNT & AUTO [id number] 06:12:00 Test Item Value Reference Range Interpretation [...] PERCENT (BEAKER) (test code = 2801) POCT-GLUCOSE [id number] 06:09:00 Test Item Value Reference Range Interpretation Comments POC-GLUCOSE METER 83 mg/dL 70-110 : Notified RN/MD: TESTED (BEAKER) (test code = AT [facility] L [address]) [place] [address]: Shopper Insights Manager/Techni artemio ID = [id number] for Anahi Sherman POCT-GLUCOSE [id number] 16:26:00 Test Item Value Reference Range Interpretation Comments POC-GLUCOSE METER 182 mg/dL 70-110 H : Notified RN/MD: TESTED (BEAKER) [facility] [address] [address] = [address]38) [place] [address]: Shopper Insights Manager/Techni artemio ID = [id number] for Alondra Kelley, [id number] 09:17:00 Test Item Value Reference Range Interpretation Comments Rh Factor (test code = POS 2589) ABO Grouping (test code O PINK TOP 12/24/19 @ 08 = 2588) [facility] HospitalType and screen, [id number] 07:31:00 Test Item Value Reference Range Interpretation Comments ABO/RH AUTOMATED (BEAKER) (test O POSITIVE ECHO code = 2260) Ab Scrn (test code = 890-4) NEGATIVE ECHO [facility] HospitalCOMPREHENSIVE METABOLIC [id number] 06:42:00 Test Item Value Reference Range Interpretation [...] S NOT APPLICABLE FOR DIALYSIS PATIEN TS. Shopper Insights Manager ID - ADMINPOCT-GLUCOSE [id number] 06:23:00 Test Item Value Reference Range Interpretation Comments POC-GLUCOSE METER 88 mg/dL 70-110 : TESTED A T [facility] [address] (BEAKER) (test code = [address], [address]) [facility] 77 [address]: Shopper Insights Manager/Techni artemio ID = [id number] for Anne Busby CBC W/PLT COUNT & AUTO [id number] 06:23:00 Test Item Value Reference Range Interpretation [...] PERCENT (BEAKER) (test code = 2801) POCT-GLUCOSE [id number] 21:38:00 Test Item Value Reference Range Interpretation Comments POC-GLUCOSE METER 126 mg/dL 70-110 H : TESTED A T [facility] [address] (BEAKER) (test code [address], = 1538) [facility] 77 478: Shopper Insights Manager/Techni artemio ID = [id number] for Anne Busby POCT-GLUCOSE [id number] 16:54:00 Test Item Value Reference Range Interpretation Comments POC-GLUCOSE METER 89 mg/dL 70-110 : Notified RN/MD: TESTED (BEAKER) (test code = AT [address]) [facility], [facility] [address]: Shopper Insights Manager/Techni artemio ID = [id number] for Alondra Kelley MR, EXTREMITY, LOWER, JOINT, WITHOUT CONTRAST, [id number] 16:10:00Unlisted Reason for Exam - Click Yes [...] Jordan Verified Date/Time: 12/23/2019 16:10:32 Reading Location: [facility] C013X Ortho Consult Reading Room MR lower extremity joint only without IV contrast left [id number] 16:10:00Interface, External Ris In - 12/23/2019 4:12 [...] Jordan Verified Date/Time: 12/23/2019 16:10:32 Reading Location: [facility] C013X Ortho Consult Reading Room [facility], [facility], WITHOUT [id number] 15:43:00Unlisted Reason for Exam - Click Yes [...] Date/Time: 12/23/2019 15:43:24 MR brain without IV [id number] 15:43:00Interface, External Ris In - 12/23/2019 3:45 [...] Signed: Berta Muniz Verified Date/Time: 12/23/2019 15:43:24 [facility])2019-12-23 14:16:00 Test Item Value Reference Range Interpretation Comments SARS-COV2/RT-PCR (test Negative Not Detected, Negative, code = 0917208) See external report for linked test SARS-COV-2 PERFORMING LAB [facility] JANET (test code = 0224512) Negative result for this test determines that [...] 564(g) of the Act.Fact Sheet for Healthcare Providers:https://www.Inoappsidel.com/sites/default/files/product/documents/Fact_Shee j_JQ_Nwwmdwbqp_Jlqd_YTPV-IrT-3.pdfFact Sheet for Healthcare Patients:https://www.[employer].com/sites/default/files/product/ documents/Secd_Qkxwa_Japipkvn_Gwba_PKBU-PuQ-1.pdfPerforming Laboratory:[facility], [place] [address]Wrree / lambda light chains, [id number] 12:25:00 Test Item Value Reference Interpretation Comments Range Farina Lt Chain,Free 474.4 mg/L 3.3-19.4 H (test code = 63878-5) Lambda Lt 225.6 mg/L 5.7-26.3 H Chain,Free (test code = 22282-1) Farina/Lambda,Free 2.1 0.26-1.65 H Free annabelle a/lambda (test [...] (test code = Performing Lab ZIA) [facility] [address] [place] [address] Jaguar Stein MD, PhD, CORI Lab Interpretation Abnormal (test code = 26368-5) [facility] HospitalPOCT-GLUCOSE [id number] 11:27:00 Test Item Value Reference Range Interpretation Comments POC-GLUCOSE METER 189 mg/dL 70-110 H : Notified RN/: TESTED (BEAKER) (test code AT [facility] [address] [place] [address] = 1538) [facility] [address]: Shopper Insights Manager/Techni artemio ID = [id number] for Alondra Kelley ARTERIAL DOPPLER LEGS, [id number] 11:22:00Reason for exam:->non healing ulcer , non [...] to severe peripheral arterial disease. Signed:Luis Alberto Monahan MDReport Verified Date/Time: 12/23/2019 11:22:31 Reading Location: [facility] Radiology Reading Room Arterial Doppler Legs [id number] 11:22:00 Interface, External Ris In - 12/23/2019 [...] MDReport Verified Date/Time: 12/23/2019 11:22:31 Reading Location: [facility] Radiology Reading Room [facility] CenterCOMPRE[facility]ENSIVE METABOL[facility] [id number] 04:44:00 Test Item Value Reference Range Interpretation [...] S NOT APPLICABLE FOR DIALYSIS PATIEN TS. Shopper Insights Manager ID - ADMINCBC W/PLT COUNT & AUTO [id number] 04:35:00 Test Item Value Reference Range Interpretation [...] H PERCENT (BEAKER) (test code = 2801) [id number] 04:29:00 Test Item Value Reference Range Interpretation Comments Ammonia (test code = 36 17- 80 mol/L 02946-5) ZIA (test code = ZIA) Shopper Insights Manager ID - ADMIN Lab Interpretation (test Normal code = 88106-3) [facility] HospitalAMMONIA2020-09-24 04:29:00 Test Item Value Reference Range Interpretation Comments AMMONIA (BEAKER) (test code = 348) 36 mol/L 17-80 Shopper Insights Manager ID - ADMINPOCT-GLUCOSE [id number] 20:45:00 Test Item Value Reference Range Interpretation Comments POC-GLUCOSE METER 95 mg/dL 70-110 : TESTED A T [facility] [address] (BEAKER) (test code = [address], [address]) [place] [address]: Shopper Insights Manager/Techni artemio ID = [id number] for Anne Busby POCT-GLUCOSE [id number] 17:08:00 Test Item Value Reference Range Interpretation Comments POC-GLUCOSE METER 107 mg/dL 70-110 : TESTED A T [facility] [address] (BEAKER) (test code [address], = 1538) [place] [address]: Shopper Insights Manager/Techni artemio ID = [id number] for Jordyn Fonseca POCT-GLUCOSE [id number] 11:55:00 Test Item Value Reference Range Interpretation Comments POC-GLUCOSE METER 135 mg/dL 70-110 H : TESTED A T [facility] [address] (BEAKER) (test code [address], = 1538) [place] [address]: Shopper Insights Manager/Techni artemio ID = [id number] for Jordyn Fonseca Anti-Nuclear Antibody (ROGER)2019-12-22 11:40:00 Test Item Value Reference Range Interpretation Comments ROGER (test code = 66755-2) Positive Negative A ZIA (test code = ZIA) Test performed by IFA method. Lab Interpretation (test Abnormal code = 07802-6) [facility] HospitalANA Titer & [id number] 11:40:00 Test Item Value Reference Range Interpretation Comments ROGER Titer (test code = 45338-3) 1:40 ROGER Pattern (test code = 1781) Speckled [facility] HospitalANTI-NUCLEAR ANTIBODY (ROGER)2019-12-22 11:40:00 Test Item Value Reference Range Interpretation Comments ANTI-NUCLEAR ANTIBODY (ROGER) (BEAKER) Positive Negative A (test code = 418) Test performed by IFA method.ROGER TITER AND [id number] 11:40:00 Test Item Value Reference Range Interpretation Comments ROGER TITER (BEAKER) (test code = :40 1541) ROGER PATTERN (BEAKER) (test code = Speckled 1781) POCT-GLUCOSE [id number] 06:44:00 Test Item Value Reference Range Interpretation Comments POC-GLUCOSE METER 92 mg/dL 70-110 : TESTED A T [facility] [address] (BEAKER) (test code = [address], [address]) [facility] [address]: Shopper Insights Manager/Techni artemio ID = [id number] for Anne Busby COMPREHENSIVE METABOLIC [id number] 06:35:00 Test Item Value Reference Range Interpretation [...] S NOT APPLICABLE FOR DIALYSIS PATIEN TS. Shopper Insights Manager ID - ADMINCBC W/PLT COUNT & AUTO [id number] 06:16:00 Test Item Value Reference Range Interpretation [...] PERCENT (BEAKER) (test code = 2801) POCT-GLUCOSE [id number] 20:38:00 Test Item Value Reference Range Interpretation Comments POC-GLUCOSE METER 85 mg/dL 70-110 : TESTED A T [facility] [address] (BEAKER) (test code = [address], [address]) [place] [address]: Shopper Insights Manager/Techni artemio ID = [id number] for Anne Busby POCT-GLUCOSE [id number] 18:14:00 Test Item Value Reference Range Interpretation Comments POC-GLUCOSE METER 112 mg/dL 70-110 H : TESTED A T [facility] [address] (BEAKER) (test code [address], = 1538) [place] [address]: Shopper Insights Manager/Techni artemio ID = [id number] for Christina r, Berta POCT-GLUCOSE [id number] 13:00:00 Test Item Value Reference Range Interpretation Comments POC-GLUCOSE METER 77 mg/dL 70-110 : TESTED A T [facility] [address] (BEAKER) (test code = [address], 15[address]) [place] [address]: Shopper Insights Manager/Techni aretmio ID = [id number] for Christina r, Berta POCT-GLUCOSE [id number] 07:32:00 Test Item Value Reference Range Interpretation Comments POC-GLUCOSE METER 60 mg/dL 70-110 L : TESTED A T [facility] [address] (BEAKER) (test code = [address], 15[address]) [place] [address]: Shopper Insights Manager/Techni artemio ID = [id number] for Marissa Page COMPREHENSIVE METABOLIC [id number] 06:11:00 Test Item Value Reference Range Interpretation [...] S NOT APPLICABLE FOR DIALYSIS PATIEN TS. Shopper Insights Manager ID - ADMINC-Reactive [id number] 06:06:00 Test Item Value Reference Range Interpretation Comments CRP (test code = 676) 1.63 mg/dL 0-0.5 H ZIA (test code = ZIA) Shopper Insights Manager ID - ADMIN Lab Interpretation (test Abnormal code = 63443-3) [facility] HospitalC-REACTIVE [id number] 06:06:00 Test Item Value Reference Range Interpretation Comments C-REACTIVE PROTEIN (BEAKER) (test 1.63 mg/dL 0.00-0.50 H code = 676) Shopper Insights Manager ID - ADMINPOCT-GLUCOSE [id number] 06:04:00 Test Item Value Reference Range Interpretation Comments POC-GLUCOSE METER 56 mg/dL 70-110 L : Notified RN/MD: TESTED (BEAKER) (test code = [address]) [facility] [address]: Shopper Insights Manager/Techni artemio ID = [id number] for Nelda Abdi CBC W/PLT COUNT & AUTO [id number] 05:53:00 Test Item Value Reference Range Interpretation [...] (BEAKER) (test code = 2801) U/S, ABDOMINAL, [id number] 22:02:00Reason for exam:->thrombocytopenia / eval for hepatosplenomegalyFINAL [...] MDReport Verified Date/Time: 12/20/2019 22:02:21 US abdomen [id number] 22:02:00Interface, External Ris In - 12/20/2019 10:04 [...] Hever Marin MDReport Verified Date/Time: 12/20/2019 22:02:21 [facility]POCT[facility] [id number] 20:36:00 Test Item Value Reference Range Interpretation Comments POC-GLUCOSE METER 74 mg/dL 70-110 : Notified RN/MD: [facility] (test code = AT [address]LS L [address]) [facility] [address]: Shopper Insights Manager/Techni artemio ID = [id number] for Nelda Abdi POCT-GLUCOSE [id number] 17:50:00 Test Item Value Reference Range Interpretation Comments POC-GLUCOSE METER 72 mg/dL 70-110 : TESTED A T [facility] 1317 ([facility]) (test code = [address] [facility], 1538) [facility] [address]: Shopper Insights Manager/Techni artemio ID = [id number] for Christina r, Berta CT, BRAIN, WITHOUT [id number] 16:08:00Unlisted Reason for Exam - Click Yes [...] Date/Time: 12/20/2019 16:08:40 CT brain without IV [id number] 16:08:00Interface, External Ris In - 12/20/2019 4:10 [...] for further characteriz ation. Signed: Berta Muniz MDReport Verified Date/Time: 12/20/2019 16:08:40 [facility] HospitalRAD, FOOT, 2 VIEWS, [id number] 15:15:00Reason for exam:->Rule out osteomyelitisShould this be [...] forefoot. Vascular calcifications. Signed: Luis Alberto Monahan MDRtieraort Verified Date/Time: 12/20/2019 15:15:25 Reading Location: [facility] Radiology Reading Room , FOOT, 2 VIEWS, [id number] 15:15:00Reason for exam:->Rule out osteomyelitisShould this be [...] MDReport Verified Date/Time: 12/20/2019 15:15:25 Reading Location: [facility] Radiology Reading Room XR foot 2 views [id number] 15:15:00Interface, External Ris In - 12/20/2019 3:17 [...] MDReport Verified Date/Time: 12/20/2019 15:15:25 Reading Location: [facility] Radiology Reading Room [facility] HospitalXR foot 2 views [id number] 15:15:00Interface, External Ris In - 12/20/2019 3:17 [...] MDReport Verified Date/Time: 12/20/2019 15:15:25 Reading Location: [facility] Radiology Reading Room [facility] HospitalAMMONIA2020-09-21 14:56:00 Test Item Value Reference Range Interpretation Comments AMMONIA (BEAKER) (test code = 348) 33 mol/L 17-80 Shopper Insights Manager ID - ADMINBlood gas, [id number] 14:41:00 Test Item Value Reference Range Interpretation [...] % Lab Interpretation (test code = Abnormal 11806-8) [facility] HospitalBLOOD GAS, [id number] 14:41:00 Test Item Value Reference Range Interpretation [...] code = 1819) 32.0 % Occult blood, [id number] 11:56:00 Test Item Value Reference Range Interpretation Comments Occult blood (test code = 2335-8) Negative Negative Lab Interpretation (test code = Normal 43267-7) [facility] HospitalOCCULT BLOOD, [id number] 11:56:00 Test Item Value Reference Range Interpretation Comments FECAL OCCULT BLOOD (BEAKER) (test Negative Negative code = 618) POCT-GLUCOSE [id number] 11:39:00 Test Item Value Reference Range Interpretation Comments POC-GLUCOSE METER 88 mg/dL 70-110 : TESTED A T [facility] [address]17 (BEAKER) (test code = [address], [address]) [facility] [address]: Shopper Insights Manager/Techni artemio ID = [id number] for Gifty Phelps [id number] 11:22:00 Test Item Value Reference Range Interpretation Comments Haptoglobin (test code = <8 14-258 L 4542-7) ZIA (test code = ZIA) Shopper Insights Manager ID - LEONIE F Lab Interpretation (test Abnormal code = 13253-5) [facility]2020-[facility] 11:22:00 Test Item Value Reference Range Interpretation Comments HAPTOGLOBIN (BEAKER) (test code = < mg/dL 14-258 L 366) Shopper Insights Manager ID - LEONIE FT4, [id number] 11:01:00 Test Item Value Reference Range Interpretation Comments Free T4 (test code = 0.52 ng/dL 0.9-1.8 L 3024-7) ZIA (test code = ZIA) Shopper Insights Manager ID - ANGELI Lab Interpretation (test Abnormal code = 78874-2) [facility] HospitalT4, [id number] 11:01:00 Test Item Value Reference Range Interpretation Comments FREE T4 (BEAKER) (test code = 655) 0.52 ng/dL 0.90-1.80 L Shopper Insights Manager ID - ADMINPeripheral Blood Smear - Path [id number] 08:19:00 Test Item Value Reference Range Interpretation [...] Griffith M.D. code = 2849) (electronic signature) [facility] HospitalPER[facility]HER[facility] - PATHOLOGIST REVIEW 2019-12-20 08:19:00 Test Item Value Reference Range Interpretation Comments RBC MORPHOLOGY Target Cells (BEAKER) (test code = 2846) RBC MORPHOLOGY Basophilic Stippling (BEAKER) (test code = 28930) RBC MORPHOLOGY Nucleated Red Blood Cells (BEAKER) (test code = 41137) PERIPHERAL SMR Normochromic normocytic REVIEW (BEAKER) anemia with a few target (test code = 2640) cells, nucleated RBCs and basophilic stippling. No increase in schistocytes. WBCs normal in number and morphology. Thrombocytopenia with normal platelet morphology. [id number]-[id number]-139 oJvita Griffith M.D. 2 (BEAKER) (test (electronic signature) code = 2849) Vitamin B12 and Gwases4726-94-65 06:37:00 Test Item Value Reference Range Interpretation Comments Vitamin B12 (test code = 1431 pg/mL 211-911 H 2132-9) Folate (test code = 17.00 ng/mL >=5.4 2284-8) ZIA (test code = ZIA) Shopper Insights Manager ID - ADMIN Lab Interpretation (test Abnormal code = 29198-2) [facility] HospitalVITAMIN B12 AND [id number] 06:37:00 Test Item Value Reference Range Interpretation Comments VITAMIN B12 (BEAKER) (test code = 1431 pg/mL 211-911 H 774) FOLATE (BEAKER) (test code = 362) 17.00 ng/mL >=5.4 Shopper Insights Manager ID - ADMINPOCT-GLUCOSE [id number] 06:32:00 Test Item Value Reference Range Interpretation Comments POC-GLUCOSE METER 79 mg/dL 70-110 : TESTED A T [address] [address] (BEAKER) (test code = [address], [address]) [facility] [place] [address]: Shopper Insights Manager/Techni artemio ID = [id number] for Anahi Sherman [id number] 06:25:00 Test Item Value Reference Range Interpretation Comments Ferritin (test code = 595.00 ng/mL 10-291 H 2276-4) ZIA (test code = ZIA) Shopper Insights Manager ID - ADMIN Lab Interpretation (test Abnormal code = 28001-4) [facility] HospitalTSH/Free T4 If [id number] 06:25:00 Test Item Value Reference Range Interpretation Comments TSH (test code = 21.210 0.350- 5.500 uIU/mL H 05332-5) ZIA (test code = ZIA) Shopper Insights Manager ID - ADMIN Lab Interpretation (test Abnormal code = 56154-4) [facility] HospitalFERRITIN2020-09-21 06:25:00 Test Item Value Reference Range Interpretation Comments FERRITIN (BEAKER) (test code = 595.00 ng/mL 10.00-291.00 H 361) Shopper Insights Manager ID - ADMINTSH/FREE T4 IF [id number] 06:25:00 Test Item Value Reference Range Interpretation Comments THYROID STIMULATING HORMONE 21.210 uIU/mL 0.350-5.500 H (BEAKER) (test code = 772) Shopper Insights Manager ID - FRKZMNbrpyxpyxb3093-37-95 06:06:00 Test Item Value Reference Range Interpretation Comments Fibrinogen (test code = 340 mg/dL 954-948 8366-7) ZIA (test code = ZIA) Final Information (Auto Output) Lab Interpretation (test Normal code = 38156-5) [facility] HospitalPT/[id number] 06:06:00 Test Item Value Reference Range Interpretation Comments Protime (test code = 13.5 9.3- 12.0 sec H 5902-2) INR (test code = 1.25 <=5.90 6301-6) PTT (test code = 38.2 23.0- 35.0 sec H 06382-9) ZIA (test code = ZIA) RECOMMENDED COUMADIN/WARFARIN INR THERAPY RANGESSTANDARD DOSE: 2.0 - 3.0 Includes: PROPHYLAXIS for venous thrombosis, systemic embolization; TREATMENT for venous thrombosis and/or pulmonary embolus.HIGH RISK: Target INR is 2.5-3.5 for patients with mechanical heart valves.Final Information (Auto Output)Final Information (Auto Output)Final Information (Auto Output) Lab Interpretation Abnormal (test code = 47494-0) [facility] HospitalFIBRINOGEN2020-09-21 06:06:00 Test Item Value Reference Range Interpretation Comments FIBRINOGEN LEVEL (BEAKER) (test 340 mg/dL 200-400 code = 658) Final Information (Auto Output)[id number] 06:06:00 Test Item Value Reference Range Interpretation [...] = 2502-3) ZIA (test code = ZIA) Shopper Insights Manager ID - ADMIN Lab Interpretation (test Abnormal code = 73252-8) [facility] HospitalIRON, TIBC, % SAT. (WITHOUT FERRITIN)2019-12-20 05:59:00 Test Item Value Reference Range Interpretation Comments IRON (BEAKER) (test code = 547) 92.0 ug/dL 45.0-170.0 TOTAL IRON BINDING CAPACITY 151 ug/dL 250-550 L (BEAKER) (test code = 769) IRON % SATURATION (2) (BEAKER) 61 % 20-55 H (test code = 2590) Shopper Insights Manager ID - ADMINCOMPREHENSIVE METABOLIC [id number] 05:55:00 Test Item Value Reference Range Interpretation [...] S NOT APPLICABLE FOR DIALYSIS PATIEN TS. Shopper Insights Manager ID - APJTLC-dapkb5142-97-21 05:46:00 Test Item Value Reference Range Interpretation Comments D-Dimer, Quant (test 1.09 mg/L <0.50 H code = 68002-9) ZIA (test code = ZIA) REGARDING D-DIMER RESULTS: The 98% NPV (Negative Predictive Value) for DVT/PE exclusion is 0.50 mg/L FEU as suggested by the photocomposing machine operator and as approved by the FDA.Final Information (Auto Output) Lab Interpretation (test Abnormal code = 16708-1) [facility] HospitalD-[id number] 05:46:00 Test Item Value Reference Range Interpretation Comments D-DIMER QUANTITATIVE (BEAKER) (test 1.09 mg/L <0.50 H code = 671) REGARDING D-DIMER RESULTS: The 98% NPV (Negative Predictive Value) for DVT/PE exclusion is 0.50 mg/LFEU as suggested by the photocomposing machine operator and as approved by the FDA.Final Information (Auto Output)Reticulocyte [id number] 05:42:00 Test Item Value Reference Range Interpretation Comments % Retic (test code = 76931-7) 5.9 % 0.4-2.9 H Lab Interpretation (test code = Abnormal 32551-0) [facility] HospitalRETICULOCYTE [id number] 05:42:00 Test Item Value Reference Range Interpretation Comments RETICULOCYTE COUNT PCT (BEAKER) (test 5.9 % 0.4-2.9 H code = 575) CBC W/PLT COUNT & AUTO [id number] 05:33:00 Test Item Value Reference Range Interpretation [...] U/L 107-206 ZIA (test code = ZIA) Shopper Insights Manager ID - ADMIN Lab Interpretation (test Normal code = 76369-4) [facility] HospitalLACTATE DEHYDROGENASE (LDH)2019-12-19 21:19:00 Test Item Value Reference Range Interpretation Comments LACTATE DEHYDROGENASE (BEAKER) (test 178 U/L 107-206 code = 635) Shopper Insights Manager ID - ADMINPOCT-GLUCOSE [id number] 20:47:00 Test Item Value Reference Range Interpretation Comments POC-GLUCOSE METER 102 mg/dL 70-110 : TESTED A T [facility] [address] (BEAKER) (test code [address], = 1538) [facility] 77 478: Shopper Insights Manager/Techni artemio ID = [id number] for Anahi Sherman POCT-GLUCOSE [id number] 16:18:00 Test Item Value Reference Range Interpretation Comments POC-GLUCOSE METER 96 mg/dL 70-110 : TESTED A T [address] (BEAKER) (test code = [address], 15[address]) [facility] [place] 77 [address]: Shopper Insights Manager/Techni artemio ID = [id number] for Nalini Jean Baptiste Basic Metabolic [id number] 06:26:00 Test Item Value Reference Range Interpretation Comments Sodium (test code = 138 meq/L 065-191 2419-2) Potassium (test code = 3.9 meq/L 3.6-5.5 2823-3) Chloride (test code = 99 meq/L 98-106 2075-0) CO2 (test code = 30 meq/L 20-29 H 2028-9) BUN (test code = 47 mg/dL 10-26 H 3094-0) Creatinine (test code 3.04 mg/dL 0.5-1.2 H = 2160-0) Glucose (test code = 82 mg/dL 70-110 2345-7) Calcium (test code = 7.9 mg/dL 8.5-10.5 L 91972-2) EGFR (test code = 15 mL/min/1.73 [place] [address]-6) NOT ACCURATE CREATININE CLEARANCE IN PREDICTING GLOMERULAR FILTRATION RATE . ESTIMATED GFR I S NOT APPLICABLE FOR DIALYSIS PATIENTS. ZIA (test code = ZIA) Shopper Insights Manager ID - ADMIN Lab Interpretation Abnormal (test code = 51693-7) [facility] HospitalBAMCD[facility] METABOLIC [id number] 06:26:00 Test Item Value Reference Range Interpretation [...] S NOT APPLICABLE FOR DIALYSIS PATIEN TS. Shopper Insights Manager ID - ADMINCBC W/PLT COUNT & AUTO [id number] 06:04:00 Test Item Value Reference Range Interpretation [...] PERCENT (BEAKER) (test code = 2801) POCT-GLUCOSE [id number] 05:35:00 Test Item Value Reference Range Interpretation Comments POC-GLUCOSE METER 85 mg/dL 70-110 : Notified RN/[facility]: [facility] (test code = AT [facility] L [address]) [place] [address]: Shopper Insights Manager/Techni artemio ID = [id number] for Keen Zonia POCT-GLUCOSE [id number] 21:46:00 Test Item Value Reference Range Interpretation Comments POC-GLUCOSE METER 125 mg/dL 70-110 H : Notified RN/MD: TESTED ([facility]) (test code AT [facility] [address] = 1538) [place] [address]: Shopper Insights Manager/Techni artemio ID = [id number] for Keen , Zonia POCT-GLUCOSE [id number] 16:17:00 Test Item Value Reference Range Interpretation Comments POC-GLUCOSE METER 103 mg/dL 70-110 : [facility] (BEAKER[facility] ([facility], = 1538) [place] [address]: Shopper Insights Manager/Techni artemio ID = [id number] for Akhil rs, Shelea POCT-GLUCOSE [id number] 07:56:00 Test Item Value Reference Range Interpretation Comments POC-GLUCOSE METER 111 mg/dL 70-110 H : [facility] (BEAKER) (test code [address] [facility], = 1538) [place] [address]: Shopper Insights Manager/Techni artemio ID = [id number] for Akhil rs, Shelea POCT-GLUCOSE [id number] 06:25:00 Test Item Value Reference Range Interpretation Comments POC-GLUCOSE METER 57 mg/dL 70-110 L : TESTED A T [address] (BEAKER) (test code = [address], 1538) [place] [address]: Shopper Insights Manager/Techni artemio ID = [id number] for Damian Busbyen POCT-GLUCOSE [id number] 21:55:00 Test Item Value Reference Range Interpretation Comments POC-GLUCOSE METER 76 mg/dL 70-110 : TESTED A T [address] (BEAKER) (test code = [address], 1538) [place] [address]: Shopper Insights Manager/Techni artemio ID = [id number] for Ashley n, Anne POCT-GLUCOSE [id number] 18:03:00 Test Item Value Reference Range Interpretation Comments POC-GLUCOSE METER 81 mg/dL 70-110 : TESTED A T [address] (BEAKER) (test code = [address], 1538) [place] [address]: Shopper Insights Manager/Techni artemio ID = [id number] for Ericka Daniel POCT-GLUCOSE [id number] 12:33:00 Test Item Value Reference Range Interpretation Comments POC-GLUCOSE METER 73 mg/dL 70-110 : TESTED A T [address] (BEAKER) (test code = [address], 1538) [place] [address]: Shopper Insights Manager/Techni artemio ID = [id number] for Marisela Bolton Hepatitis B surface [id number] 10:49:00 Test Item Value Reference Range Interpretation Comments Hep B S Ab (test code = <8.0 <8.0 mIU/mL 13025-0) ZIA (test code = ZIA) Shopper Insights Manager ID - LEONIE F Lab Interpretation (test Normal code = 02460-2) [facility] HospitalHEPATITIS B SURFACE [id number] 10:49:00 Test Item Value Reference Range Interpretation Comments HEPATITIS B SURFACE ANTIBODY < mIU/mL <8.0 (BEAKER) (test code = 647) Shopper Insights Manager ID - LEONIE FHepatitis B core antibody, [id number] 10:43:00 Test Item Value Reference Range Interpretation Comments Hep B Core Total Ab Nonreactive Nonreactive (test code = 91388-7) ZIA (test code = ZIA) Shopper Insights Manager ID - LEONIE F Lab Interpretation (test Normal code = 28752-1) [facility] HospitalHepatitis C [id number] 10:43:00 Test Item Value Reference Range Interpretation Comments Hepatitis C Ab (test Nonreactive Nonreactive code = 94000-7) ZIA (test code = ZIA) Shopper Insights Manager ID - LEONIE F Lab Interpretation (test Normal code = 61579-0) [facility] HospitalHEH[facility]ITALTIS C [id number] 10:43:00 Test Item Value Reference Range Interpretation Comments HEPATITIS C ANTIBODY (BEAKER) Nonreactive Nonreactive (test code = 367) Shopper Insights Manager ID - LEONIE FHEPATITIS B CORE ANTIBODY, [id number] 10:43:00 Test Item Value Reference Range Interpretation Comments HEPATITIS B CORE TOTAL ANTIBODY Nonreactive Nonreactive (BEAKER) (test code = 497) Shopper Insights Manager ID - LEONIE FPOCT-GLUCOSE [id number] 06:31:00 Test Item Value Reference Range Interpretation Comments POC-GLUCOSE METER 67 mg/dL 70-110 L : TESTED A T [address] (BEAKER) (test code = [address], 1538) [facility] [address]: Shopper Insights Manager/Techni artemio ID = [id number] for Ashley geovanna Anne COMPREHENSIVE METABOLIC [id number] 05:10:00 Test Item Value Reference Range Interpretation [...] S NOT APPLICABLE FOR DIALYSIS PATIEN TS. Shopper Insights Manager ID - ADMINCBC W/PLT COUNT & AUTO [id number] 04:36:00 Test Item Value Reference Range Interpretation [...] PERCENT (BEAKER) (test code = 2801) POCT-GLUCOSE [id number] 21:14:00 Test Item Value Reference Range Interpretation Comments POC-GLUCOSE METER 79 mg/dL 70-110 : TESTED A T [facility] [address] (BEAKER) (test code = [address] [facility], 1538) [facility] 77 [address]: Shopper Insights Manager/Techni artemio ID = [id number] for Anne Busby POCT-GLUCOSE [id number] 18:35:00 Test Item Value Reference Range Interpretation Comments POC-GLUCOSE METER 68 mg/dL 70-110 L : Notified RN/MD: TESTED (BEAKER) (test code = AT SLS L [address] [facility] 1538) [facility] [address]: Shopper Insights Manager/Techni artemio ID = [id number] for Alondra Kelley SARS-COV2/RT-PCR ([facility])2019-12-16 17:53:00 Test Item Value Reference Range Interpretation Comments SARS-COV2/RT-PCR (test Negative Not Detected, Negative, code = 3468676) See external report for linked test SARS-COV-2 PERFORMING LAB [facility] (test code = 5138260) Negative result for this test determines that [...] 564(g) of the Act.Fact Sheet for Healthcare Providers:https://www.Inoappsidel.com/sites/default/files/product/documents/Fact_Shee l_CJ_Avujkmoti_Kauq_EFEN-GhP-6.pdfFact Sheet for Healthcare Patients:https://www.Native[employer].com/sites/default/files/product/ documents/Rhxe_Knjza_Shbwjmxo_Lxsy_SASF-UfZ-3.pdfPerforming Laboratory:[facility], [place] [address]Pmueorqro B surface [id number] 16:57:00 Test Item Value Reference Range Interpretation Comments HBsAg Screen (test code = Nonreactive Nonreactive 5195-3) ZIA (test code = ZIA) Shopper Insights Manager ID - ADMIN Lab Interpretation (test Normal code = 76334-0) [facility] HospitalHEPATITIS B SURFACE [id number] 16:57:00 Test Item Value Reference Range Interpretation Comments HEPATITIS B SURFACE ANTIGEN (2) Nonreactive Nonreactive (ROBERT) (test code = 2585) Shopper Insights Manager ID - KALA, TUNNELED CATHETER [id number] 15:06:00Reason for Central Line/PICC?->Need for hemodialysis accessReason [...] the patient's medical record by the nurse. Tonal Regulator: Soto Arias M.D. Stick Puller: none. Approach: Right internal jugular vein Estimated [...] needle into the right atrium. A 4 Beninese micropuncture sheath was placed and a 0.035 wire was advanced into the IVC. A subcutaneous tunnel was created in the left anterior chest wall by blunt dissection. A 23 cm tip to cuff 15.5 Beninese Duraflow 2 catheter was brought through the [...] Arias MDReport Verified Date/Time: 12/16/2019 15:06:45Reading Location: [facility] Radiology Reading Room IR Tunneled Catheter [id number] 15:06:00 Interface, External Ris In - 12/16/2019 [...] the patient's medical record by the nurse. Tonal Regulator: Soto Arias M.D. Ass istant: none. Approach: [...] A 23 cm tip to cuff 15.5 Beninese Duraflow 2 catheter was brought through the [...] tolerated the procedure well and left the depa rtment in the same condition. Results: Spot radiograph of the chest demonstrates the new dialysis catheter to lie in theexpected position with its tip overlying the superior right atrium. Impression: 1. Successful, uncomplicated placement of a left internal jugular tunneled dialysiscatheter using sonographic and fluoroscopic guidance and conscious sedation. Signed: Soto Arias MDReport Verified Date/Time: 12/16/2019 15:06:45 Reading Location: [facility] Radiology Reading [facility] [id number] 14:59:00 Test Item Value Reference Range Interpretation Comments POC-GLUCOSE METER 70 mg/dL 70-110 : Notified RN/MD: TESTED (BEAKER) (test code = AT [facility] [address] [place] [address]) [facility] [address]: Shopper Insights Manager/Techni artemio ID = [id number] for Alondra Kelley POCT-GLUCOSE [id number] 11:13:00 Test Item Value Reference Range Interpretation Comments POC-GLUCOSE METER 72 mg/dL 70-110 : Notified RN/MD: TESTED (ROBERT) (test code = AT [facility] L [address]) [place] [address]: Shopper Insights Manager/Techni artemio ID = [id number] for Alondra Kelley RAD, CHEST, 1 VIEW, NON [id number] 09:20:00Reason for exam:->fallShould this be performed at [...] MDReport Verified Date/Time: 12/16/2019 09:20:06 Reading Location: [facility] Radiology Reading Room XR chest 1 view portable / [id number] 09:20:00Interface, External Ris In - 12/16/2019 9:22 [...] MDReport Verified Date/Time: 12/16/2019 09:20:06 Reading Location: [facility] Radiology Reading Room Electronically yeimi d by: SOTO ARIAS MD on 12/16/2019 09:20 [facility] POCT-GLUCOSE [id number] 06:03:00 Test Item Value Reference Range Interpretation Comments POC-GLUCOSE METER 74 mg/dL 70-110 : Notified RN/MD: TESTED (BEAKER) (test code = AT [facility] L [address]) PKW[place] [address]: Shopper Insights Manager/Techni artemio ID = [id number] for Zonia Healy BASIC METABOLIC [id number] 05:08:00 Test Item Value Reference Range Interpretation [...] S NOT APPLICABLE FOR DIALYSIS PATIEN TS. Shopper Insights Manager ID - ADMINProthrombin time/[id number] 05:01:00 Test Item Value Reference Range Interpretation [...] Output) Lab Interpretation Abnormal (test code = 08298-4) [facility] HospitalPROTHROMBIN TIME/[id number] 05:01:00 Test Item Value Reference Range Interpretation [...] Information (Auto Output)CBC W/PLT COUNT & AUTO [id number] 04:46:00 Test Item Value Reference Range Interpretation [...] PERCENT (BEAKER) (test code = 2801) POCT-GLUCOSE [id number] 17:13:00 Test Item Value Reference Range Interpretation Comments POC-GLUCOSE METER 220 mg/dL 70-110 H TESTED AT [facility] 6720 (BEAKER) (test code = JULIANO Osborne [facility] 1538) [address] BASIC METABOLIC [id number] 15:47:00 Test Item Value Reference Range Interpretation [...] NOT APPLICABLE FOR DIALYSIS PATIEN TS. POCT-GLUCOSE [id number] 11:30:00 Test Item Value Reference Range Interpretation Comments POC-GLUCOSE METER 268 mg/dL 70-110 H TESTED AT [facility] 6720 ([facility]) (test code = [facility] Dylon [facility] 1538) [address] POCT-GLUCOSE [id number] 07:08:00 Test Item Value Reference Range Interpretation Comments POC-GLUCOSE METER 208 mg/dL 70-110 H TESTED AT [facility] 6720 ([facility]) (test code = [facility] 1538) [address] CALCIUM, [id number] 06:47:00 Test Item Value Reference Range Interpretation Comments CALCIUM IONIZED (BEAKER) (test 1.11 mmol/L 1.12-1.27 L code = 698) PH, BLOOD (BEAKER) (test code = 7.40 1810) BASIC METABOLIC [id number] 06:40:00 Test Item Value Reference Range Interpretation [...] S NOT APPLICABLE FOR DIALYSIS PATIEN TS. [id number] 06:33:00 Test Item Value Reference Range Interpretation Comments PHOSPHORUS (BEAKER) (test code = 5.1 mg/dL 2.3-4.7 H 604) [id number] 06:33:00 Test Item Value Reference Range Interpretation Comments MAGNESIUM (BEAKER) (test code = 2.0 mg/dL 1.6-2.6 627) LACTIC ACID, VENOUS, WHOLE [id number] 06:02:00 Test Item Value Reference Range Interpretation Comments LACTATE BLOOD VENOUS (2) (BEAKER) 0.8 mmol/L 0.5-2.2 (test code = 2872) Effective 08/02/2015: Units/Reference Range ChangeNew: 0.5-2.2 mmol/L Previous: 5-20 mg/dLCBC W/PLT COUNT & AUTO [id number] 05:54:00 Test Item Value Reference Range Interpretation [...] PERCENT (BEAKER) (test code = 2801) POCT-GLUCOSE [id number] 21:30:00 Test Item Value Reference Range Interpretation Comments POC-GLUCOSE METER 248 mg/dL 70-110 H TESTED AT [facility] 6720 (BEAKER) (test code = JULIANO Osborne [facility] 1538) [address] RAD, [id number] 21:22:00Reason for exam:->fall, tailbone painFINAL REPORT RAD, [...] MDReport Verified Date/Time: 09/04/2017 21:22:03 Reading Location: [facility] C0[facility] Transitional Reading Room POCT-GLUCOSE [id number] 17:37:00 Test Item Value Reference Range Interpretation Comments POC-GLUCOSE METER 222 mg/dL 70-110 H TESTED AT [place] [address] (BEAKER) (test code = JULIANO [place]borne [place] 1538) [address] POCT-GLUCOSE [id number] 13:55:00 Test Item Value Reference Range Interpretation Comments POC-GLUCOSE METER 194 mg/dL 70-110 H TESTED AT [place] [address] [facility] (test code = JULIANO [place]borne [place] 1538) [address] POCT-GLUCOSE [id number] 12:34:00 Test Item Value Reference Range Interpretation Comments POC-GLUCOSE METER 229 mg/dL 70-110 H TESTED AT [place] [address] ([facility] (test code = JULIANO Osborne [place] 1538) [address] POCT-GLUCOSE [id number] 08:00:00 Test Item Value Reference Range Interpretation Comments POC-GLUCOSE METER 159 mg/dL 70-110 H TESTED AT [place] [address] ([facility] (test code = JULIANO [place]borne [place] 1538) [address] CALCIUM, [id number] 06:00:00 Test Item Value Reference Range Interpretation Comments CALCIUM IONIZED (BEAKER) (test 1.05 mmol/L 1.12-1.27 L code = 698) PH, BLOOD (BEAKER) (test code = 7.45 1810) [id number] 05:59:00 Test Item Value Reference Range Interpretation Comments PHOSPHORUS (BEAKER) (test code = 4.8 mg/dL 2.3-4.7 H 604) [id number] 05:59:00 Test Item Value Reference Range Interpretation Comments MAGNESIUM (BEAKER) (test code = 2.0 mg/dL 1.6-2.6 627) BASIC METABOLIC [id number] 05:59:00 Test Item Value Reference Range Interpretation [...] = 380) CBC W/PLT COUNT & AUTO [id number] 05:32:00 Test Item Value Reference Range Interpretation [...] PERCENT (BEAKER) (test code = 2801) POCT-GLUCOSE [id number] 20:36:00 Test Item Value Reference Range Interpretation Comments POC-GLUCOSE METER 211 mg/dL 70-110 H TESTED AT [place] [address] ([facility]) (test code = [facility] 1538) [address] CREATININE, RANDOM [id number] 19:55:00 Test Item Value Reference Range Interpretation Comments CREATININE URINE (BEAKER) (test 16.1 mg/dL code = 375) Reference Range: No NormalsPROTEIN, RANDOM [id number] 19:55:00 Test Item Value Reference Range Interpretation Comments PROTEIN, URINE (BEAKER) (test code 102 mg/dL 0-14 H = 1569) POCT-GLUCOSE [id number] 18:04:00 Test Item Value Reference Range Interpretation Comments POC-GLUCOSE METER 177 mg/dL 70-110 H TESTED AT [place] [address] [facility] (test code = [facility] 1538) [address] POCT-GLUCOSE [id number] 11:59:00 Test Item Value Reference Range Interpretation Comments POC-GLUCOSE METER 244 mg/dL 70-110 H TESTED AT [facility] 6720 (BEAKER) (test code = JULIANO Osborne [place] 1538) [address] POCT-GLUCOSE [id number] 07:53:00 Test Item Value Reference Range Interpretation Comments POC-GLUCOSE METER 160 mg/dL 70-110 H TESTED AT [facility] 6720 (BEAKER) (test code = JULIANO Osborne [place] 1538) [address] BASIC METABOLIC [id number] 05:29:00 Test Item Value Reference Range Interpretation [...] S NOT APPLICABLE FOR DIALYSIS PATIEN TS. [id number] 05:21:00 Test Item Value Reference Range Interpretation Comments MAGNESIUM (BEAKER) (test code = 2.1 mg/dL 1.6-2.6 627) HEPATIC FUNCTION [id number] 05:21:00 Test Item Value Reference Range Interpretation [...] code = 23 U/L 6-55 347) TROPONIN [id number] 05:18:00 Test Item Value Reference Range Interpretation [...] PERCENT (BEAKER) (test code = 2801) TROPONIN [id number] 23:40:00 Test Item Value Reference Range Interpretation [...] acidosis, acute neurological disease, and persistent tachyarrhythmia.POCT-GLUCOSE [id number] 22:51:00 Test Item Value Reference Range Interpretation Comments POC-GLUCOSE METER 214 mg/dL 70-110 H TESTED AT [facility] 6720 ([facility]) (test code = [place] 1538) [address] RAD, CHEST, 1 VIEW, NON [id number] 21:42:00Reason for exam:->CHEST PAINShould this be performed at the bedside?->YesFINAL REPORT RAD, CHEST, 1 VIEW, NON DEPT INDICATION: CHEST PAIN COMPARISON: Chest x-ray 4 weeks ago TECHNIQUE: Single frontal view of the chest. IMPRESSION:Cardiomegaly.Mild pulmonary interstitial edema with a small right- sided effusion.No acute osseous abnormality. Signed: Dario Abraham MDReport Verified Date/Time: 09/02/2017 21:42:11 Reading Location: [facility] C013[facility] Reading Room CREATININE, RANDOM [id number] 21:10:00 Test Item Value Reference Range Interpretation Comments CREATININE URINE (BEAKER) (test 35.5 mg/dL code = 375) Reference Range: No NormalsSODIUM, RANDOM [id number] 21:10:00 Test Item Value Reference Range Interpretation Comments SODIUM URINE (BEAKER) (test code = 80 meq/L 243) Reference Range: No NormalsURINALYSIS W/ [id number] 20:59:00 Test Item Value Reference Range Interpretation [...] code = 514) SOURCE(BEAKER) (test code = 2795) BASIC METABOLIC [id number] 16:49:00 Test Item Value Reference Range Interpretation [...] S NOT APPLICABLE FOR DIALYSIS PATIEN TS. [id number] 16:38:00 Test Item Value Reference Range Interpretation [...] (BEAKER) (test code = 700) BASIC METABOLIC [id number] 13:43:00 Test Item Value Reference Range Interpretation [...] NOT APPLICABLE FOR DIALYSIS PATIEN TS. POCT-GLUCOSE [id number] 12:44:00 Test Item Value Reference Range Interpretation Comments POC-GLUCOSE METER 283 mg/dL 70-110 H TESTED AT [facility] 6720 (BEAKER) (test code = JULIANO [place] 1538) [address] CALCIUM, [id number] 07:03:00 Test Item Value Reference Range Interpretation Comments CALCIUM IONIZED (BEAKER) (test 1.02 mmol/L 1.12-1.27 L code = 698) PH, BLOOD (BEAKER) (test code = 7.43 1810) [id number] 05:28:00 Test Item Value Reference Range Interpretation Comments PHOSPHORUS (BEAKER) (test code = 3.3 mg/dL 2.3-4.7 604) [id number] 05:28:00 Test Item Value Reference Range Interpretation Comments MAGNESIUM (BEAKER) (test code = 1.5 mg/dL 1.6-2.6 L 627) BASIC METABOLIC [id number] 05:28:00 Test Item Value Reference Range Interpretation [...] PATIEN TS. CBC W/PLT COUNT & AUTO [id number] 05:06:00 Test Item Value Reference Range Interpretation [...] PERCENT (BEAKER) (test code = 2801) POCT-GLUCOSE [id number] 21:08:00 Test Item Value Reference Range Interpretation Comments POC-GLUCOSE METER 202 mg/dL 70-110 H TESTED AT [place] [address] ([facility]) (test code = [facility] 1538) [address] POCT-GLUCOSE [id number] 16:50:00 Test Item Value Reference Range Interpretation Comments POC-GLUCOSE METER 287 mg/dL 70-110 H TESTED AT [place] [address] ([facility]) (test code = [facility] 1538) [address] POCT-GLUCOSE [id number] 12:21:00 Test Item Value Reference Range Interpretation Comments POC-GLUCOSE METER 213 mg/dL 70-110 H TESTED AT [place] [address] ([facility]) (test code = [facility] 1538) [address] POCT-GLUCOSE [id number] 08:28:00 Test Item Value Reference Range Interpretation Comments POC-GLUCOSE METER 178 mg/dL 70-110 H TESTED AT [place] [address] ([facility]) (test code = [facility] 5098) [address] CALCIUM, [id number] 07:06:00 Test Item Value Reference Range Interpretation Comments CALCIUM IONIZED (BEAKER) (test 0.99 mmol/L 1.12-1.27 L code = 698) PH, BLOOD (BEAKER) (test code = 7.42 1810) [id number] 05:37:00 Test Item Value Reference Range Interpretation Comments PHOSPHORUS (BEAKER) (test code = 3.5 mg/dL 2.3-4.7 604) [id number] 05:37:00 Test Item Value Reference Range Interpretation Comments MAGNESIUM (BEAKER) (test code = 1.6 mg/dL 1.6-2.6 627) BASIC METABOLIC [id number] 05:37:00 Test Item Value Reference Range Interpretation [...] PATIEN TS. CBC W/PLT COUNT & AUTO [id number] 05:07:00 Test Item Value Reference Range Interpretation [...] PERCENT (BEAKER) (test code = 2801) POCT-GLUCOSE [id number] 21:24:00 Test Item Value Reference Range Interpretation Comments POC-GLUCOSE METER 255 mg/dL 70-110 H TESTED AT [facility] 6720 (BEAKER) (test code = [place] 1538) [address] POCT-GLUCOSE [id number] 17:11:00 Test Item Value Reference Range Interpretation Comments POC-GLUCOSE METER 244 mg/dL 70-110 H TESTED AT [facility] 6720 [facility] (test code = JULIANO Osborne [facility] 1538) [address] POCT-GLUCOSE [id number] 11:54:00 Test Item Value Reference Range Interpretation Comments POC-GLUCOSE METER 209 mg/dL 70-110 H TESTED AT [place] [address] [facility] (test code = JULIANO Osborne [facility] 1538) [address] POCT-GLUCOSE [id number] 08:15:00 Test Item Value Reference Range Interpretation Comments POC-GLUCOSE METER 132 mg/dL 70-110 H TESTED AT [place] [address] ([facility]) (test code = JULIANO Osborne [facility] 1538) [address] RAD, CHEST, 1 VIEW, NON [id number] 07:44:00Reason for exam:->edemaShould this be performed at the bedside?->YesFINAL REPORT Chest one view AP 08/07/2017 7:44 AM CLINICAL INDICATION: edema COMPARISON: 05/31/2017 IMPRESSION: Cardiomediastinal contours are stable. There is mild pulmonary edema,asymmetric to the right. There are trace bilateral pleural effusions, with bibasilar linear atelectasis. Sternotomy wires remain midline. Signed: Regan Cespedes Verified Date/Time: 08/07/2017 07:44:22 Reading Location: [facility] Reading Room [id number] 05:30:00 Test Item Value Reference Range Interpretation Comments FERRITIN (BEAKER) (test code = 361) 87 ng/mL 5-275 CBC W/PLT COUNT & AUTO [id number] 05:21:00 Test Item Value Reference Range Interpretation [...] % 20-55 L (test code = 2590) [id number] 05:11:00 Test Item Value Reference Range Interpretation Comments PHOSPHORUS (BEAKER) (test code = 3.6 mg/dL 2.3-4.7 604) [id number] 05:11:00 Test Item Value Reference Range Interpretation Comments MAGNESIUM (BEAKER) (test code = 2.0 mg/dL 1.6-2.6 627) BASIC METABOLIC [id number] 05:11:00 Test Item Value Reference Range Interpretation [...] H (BEAKER) (test code = 700) CALCIUM, [id number] 04:58:00 Test Item Value Reference Range Interpretation Comments CALCIUM IONIZED (BEAKER) (test 1.04 mmol/L 1.12-1.27 L code = 698) PH, BLOOD (BEAKER) (test code = 7.41 1810) RETICULOCYTE [id number] 04:51:00 Test Item Value Reference Range Interpretation Comments RETICULOCYTE COUNT PCT (BEAKER) (test 1.2 % 0.5-1.7 code = 575) POCT-GLUCOSE [id number] 20:49:00 Test Item Value Reference Range Interpretation Comments POC-GLUCOSE METER 202 mg/dL 70-110 H TESTED AT [facility] 6720 (BEAKER) (test code = [place]O [place] 1538) [address] CREATININE, RANDOM [id number] 18:38:00 Test Item Value Reference Range Interpretation Comments CREATININE URINE (BEAKER) (test 56.3 mg/dL code = 375) Reference Range: No NormalsPROTEIN, RANDOM [id number] 18:38:00 Test Item Value Reference Range Interpretation Comments PROTEIN, URINE (BEAKER) (test code 189 mg/dL 0-14 H = 1569) URINALYSIS W/ [id number] 18:34:00 Test Item Value Reference Range Interpretation [...] 516) SOURCE(BEAKER) (test code = Urine, Voided 9537) POCT-GLUCOSE [id number] 17:38:00 Test Item Value Reference Range Interpretation Comments POC-GLUCOSE METER 143 mg/dL 70-110 H TESTED AT [place] [address] ([facility]) (test code = [facility] 1538) [address] POCT-GLUCOSE [id number] 12:30:00 Test Item Value Reference Range Interpretation Comments POC-GLUCOSE METER 218 mg/dL 70-110 H TESTED AT [place] [address] ([facility]) (test code = [facility] 1538) [address] POCT-GLUCOSE [id number] 08:00:00 Test Item Value Reference Range Interpretation Comments POC-GLUCOSE METER 134 mg/dL 70-110 H TESTED AT [place] [address] ([facility]) (test code = [facility] 1538) [address] CBC W/PLT COUNT & AUTO [id number] 04:23:00 Test Item Value Reference Range Interpretation [...] (BEAKER) (test code = 2801) BASIC METABOLIC [id number] 04:13:00 Test Item Value Reference Range Interpretation [...] S NOT APPLICABLE FOR DIALYSIS PATIEN TS. [id number] 04:10:00 Test Item Value Reference Range Interpretation Comments PHOSPHORUS (BEAKER) (test code = 4.9 mg/dL 2.3-4.7 H 604) [id number] 04:10:00 Test Item Value Reference Range Interpretation Comments MAGNESIUM (BEAKER) (test code = 1.4 mg/dL 1.6-2.6 L 627) [id number] 04:08:00 Test Item Value Reference Range Interpretation Comments FIBRINOGEN LEVEL (BEAKER) (test 548 mg/dl 225-434 H code = 658) [id number] 04:08:00 Test Item Value Reference Range Interpretation Comments PARTIAL THROMBOPLASTIN TIME 37.7 seconds 22.5-36.0 H (BEAKER) (test code = 760) PROTHROMBIN [id number] 04:07:00 Test Item Value Reference Range Interpretation Comments PROTIME (BEAKER) (test code = 16.2 seconds 11.7-14.7 H 759) INR (BEAKER) (test code = 370) 1.3 <=5.9 RECOMMENDED COUMADIN/WARFARIN INR THERAPY RANGESSTANDARD DOSE: 2.0 - 3.0 Includes: PROPHYLAXIS forvenous thrombosis, systemic embolization; TREATMENT for venous thrombosis and/or pulmonary embolus.HIGH RISK: Target INR is 2.5-3.5 for patients with mechanical heart valves.[id number] 16:59:00 Test Item Value Reference Range Interpretation Comments ACTIVATED CLOTTING TIME 219 sec TEST ED AT [facility] 6720 ([facility]) (test code = [place] 441) [address] BASIC METABOLIC [id number] 14:25:00 Test Item Value Reference Range Interpretation [...] NOT APPLICABLE FOR DIALYSIS PATIEN TS. POCT-GLUCOSE [id number] 13:21:00 Test Item Value Reference Range Interpretation Comments POC-GLUCOSE METER 170 mg/dL 70-110 H TESTED AT [facility] 6720 (BEAKER) (test code = [place]O [place] 1538) [address] POTASSIUM-STAT [id number] 13:20:00 Test Item Value Reference Range Interpretation Comments POTASSIUM (BEAKER) (test code = 4.2 meq/L 3.6-5.5 379) SODIUM NA-STAT [id number] 13:20:00 Test Item Value Reference Range Interpretation Comments SODIUM (BEAKER) (test code = 381) 133 meq/L 135-148 L HGB/HCT (H&H) - STAT [id number] 12:34:00 Test Item Value Reference Range Interpretation Comments HEMOGLOBIN (BEAKER) (test code = 10.8 g/dL 12.0-15.0 L 410) HEMATOCRIT (BEAKER) (test code = 32.0 % 36.0-45.0 L 411) POTASSIUM-STAT [id number] 08:15:00 Test Item Value Reference Range Interpretation Comments POTASSIUM (BEAKER) (test code = 4.1 meq/L 3.6-5.5 379) BLOOD GAS, [id number] 08:15:00 Test Item Value Reference Range Interpretation [...] code = 1819) 70.0 % SODIUM NA-STAT [id number] 08:15:00 Test Item Value Reference Range Interpretation Comments SODIUM (BEAKER) (test code = 381) 130 meq/L 135-148 L GLUCOSE-STAT [id number] 08:15:00 Test Item Value Reference Range Interpretation Comments GLUCOSE RANDOM (BEAKER) (test code 172 mg/dL 70-110 H = 652) HGB/HCT (H&H) - STAT [id number] 08:15:00 Test Item Value Reference Range Interpretation Comments HEMOGLOBIN (BEAKER) (test code = 8.8 g/dL 12.0-15.0 L 410) HEMATOCRIT (BEAKER) (test code = 26.0 % 36.0-45.0 L 411) BASIC METABOLIC [id number] 07:37:00 Test Item Value Reference Range Interpretation [...] PATIEN TS. CBC W/PLT COUNT & AUTO [id number] 07:20:00 Test Item Value Reference Range Interpretation [...] % 0-1 PERCENT (BEAKER) (test code = 6601) POCT-GLUCOSE [id number] 07:03:00 Test Item Value Reference Range Interpretation Comments POC-GLUCOSE METER 186 mg/dL 70-110 H TESTED AT [facility] 67 ([facility] (test code = JULIANO [place]borne [place] 1538) [address] B-TYPE NATRIURETIC FACTOR (BNP)2017-06-10 12:44:00 Test Item Value Reference Range Interpretation Comments B-TYPE NATRIURETIC PEPTIDE 1264 pg/mL 0-100 H (BEAKER) (test code = 700) [id number] 12:36:00 Test Item Value Reference Range Interpretation Comments MAGNESIUM (BEAKER) (test code = 1.6 mg/dL 1.6-2.6 627) BASIC METABOLIC [id number] 12:36:00 Test Item Value Reference Range Interpretation [...] NOT APPLICABLE FOR DIALYSIS PATIEN TS. POCT-GLUCOSE [id number] 12:04:00 Test Item Value Reference Range Interpretation Comments POC-GLUCOSE METER 274 mg/dL 70-110 H TESTED AT [facility] 6720 ([facility] (test code = JULIANO [place] 1538) [address] POCT-GLUCOSE [id number] 07:21:00 Test Item Value Reference Range Interpretation Comments POC-GLUCOSE METER 137 mg/dL 70-110 H TESTED AT [place] [address] (BEAKER) (test code = [place] 1538) [address] BASIC METABOLIC [id number] 05:10:00 Test Item Value Reference Range Interpretation [...] (BEAKER) (test code = 412) PLATELET COUNT ([facility]) (test 320 K/CU MM 150-450 code = 756) MEAN PLATELET VOLUME ([facility]) 9.5 fL 9.4-12.3 (test code = 754) NUCLEATED RED BLOOD CELLS 0 /100 WBC 0-0 ([facility]) (test code = 413) POCT-GLUCOSE [id number] 21:23:00 Test Item Value Reference Range Interpretation Comments POC-GLUCOSE METER 240 mg/dL 70-110 H TESTED AT [place] [address] ([facility]) (test code = [facility] 1538) [address] POCT-GLUCOSE [id number] 16:42:00 Test Item Value Reference Range Interpretation Comments POC-GLUCOSE METER 234 mg/dL 70-110 H TESTED AT [place] [address] ([facility]) (test code = [facility] 1538) [address] POCT-GLUCOSE [id number] 13:22:00 Test Item Value Reference Range Interpretation Comments POC-GLUCOSE METER 166 mg/dL 70-110 H TESTED AT [place] [address] ([facility]) (test code = [facility] 1538) [address] RAD, CHEST, 1 VIEW, NON [id number] 09:43:00Reason for exam:->s/p ACBShould this be performed [...] wires are present. No pneumothorax. Signed: Lynda Ringeport Verified Date/Time: 05/31/2017 09:43:30 ReadingLocation: [facility] B1 C013X Ortho Consult Reading Room POCT-GLUCOSE [id number] 06:57:00 Test Item Value Reference Range Interpretation Comments POC-GLUCOSE METER 136 mg/dL 70-110 H TESTED AT [place] [address] ([facility]) (test code = [facility] 1538) [address] CALCIUM, [id number] 06:41:00 Test Item Value Reference Range Interpretation Comments CALCIUM IONIZED (BEAKER) (test 1.10 mmol/L 1.12-1.27 L code = 698) PH, BLOOD (BEAKER) (test code = 7.42 1810) [id number] 06:17:00 Test Item Value Reference Range Interpretation Comments PHOSPHORUS (BEAKER) (test code = 3.3 mg/dL 2.3-4.7 604) [id number] 06:17:00 Test Item Value Reference Range Interpretation Comments MAGNESIUM (BEAKER) (test code = 1.8 mg/dL 1.6-2.6 627) BASIC METABOLIC [id number] 06:17:00 Test Item Value Reference Range Interpretation [...] PATIEN TS. CBC W/PLT COUNT & AUTO [id number] 05:07:00 Test Item Value Reference Range Interpretation [...] PERCENT (BEAKER) (test code = 2801) POCT-GLUCOSE [id number] 20:56:00 Test Item Value Reference Range Interpretation Comments POC-GLUCOSE METER 196 mg/dL 70-110 H TESTED AT [facility] 6720 (BEAKER) (test code = [place]O [place] 1538) [address] POCT-GLUCOSE [id number] 16:42:00 Test Item Value Reference Range Interpretation Comments POC-GLUCOSE METER 196 mg/dL 70-110 H TESTED AT [facility] 6720 (BEAKER) (test code = JULIANO Osborne [facility] 1538) [address] POCT-GLUCOSE [id number] 11:45:00 Test Item Value Reference Range Interpretation Comments POC-GLUCOSE METER 215 mg/dL 70-110 H TESTED AT [facility] 6720 (BEAKER) (test code = JULIANO Osborne [facility] 1538) [address] RAD, CHEST, 1 VIEW, NON [id number] 11:15:00Reason for exam:->s/p ACBShould this be performed at the bedside?->YesFINAL REPORT Chest one view compared to May 28, 2017 Discussion: Airspace opacities are seen in both lower lung regions, probably atelectasis. Correlate clinically for infection. I could not exclude small effusions. No pneumothorax. Upper lungs clear. Signed: Jeannette Nava Verified Date/Time: 05/30/2017 11:15:07 Reading Location: [facility] Reading Room CALCIUM, [id number] 09:21:00 Test Item Value Reference Range Interpretation Comments CALCIUM IONIZED (BEAKER) (test 1.11 mmol/L 1.12-1.27 L code = 698) PH, BLOOD (BEAKER) (test code = 7.36 1810) BASIC METABOLIC [id number] 07:37:00 Test Item Value Reference Range Interpretation [...] S NOT APPLICABLE FOR DIALYSIS PATIEN TS. [id number] 07:28:00 Test Item Value Reference Range Interpretation Comments PHOSPHORUS (BEAKER) (test code = 3.8 mg/dL 2.3-4.7 604) [id number] 07:28:00 Test Item Value Reference Range Interpretation Comments MAGNESIUM (BEAKER) (test code = 1.9 mg/dL 1.6-2.6 627) CBC W/PLT COUNT & AUTO [id number] 07:26:00 Test Item Value Reference Range Interpretation [...] PERCENT (BEAKER) (test code = 2801) POCT-GLUCOSE [id number] 07:21:00 Test Item Value Reference Range Interpretation Comments POC-GLUCOSE METER 146 mg/dL 70-110 H TESTED AT [place] [address] ([facility] ([facility] = [facility] 1538) [address] POCT-GLUCOSE [id number] 22:02:00 Test Item Value Reference Range Interpretation Comments POC-GLUCOSE METER 201 mg/dL 70-110 H TESTED AT [place] [address] (BEAKER) (test code = [facility] 1538) [address] POCT-GLUCOSE [id number] 18:27:00 Test Item Value Reference Range Interpretation Comments POC-GLUCOSE METER 240 mg/dL 70-110 H TESTED AT [place] [id number] (BEAKER) (test code = [facility] 1538) [address] POCT-GLUCOSE [id number] 12:13:00 Test Item Value Reference Range Interpretation Comments POC-GLUCOSE METER 193 mg/dL 70-110 H TESTED AT [place] [id number] (BEAKER) (test code = [facility] 1538) [address] POCT-GLUCOSE [id number] 09:02:00 Test Item Value Reference Range Interpretation Comments POC-GLUCOSE METER 132 mg/dL 70-110 H TESTED AT [facility] 6720 (BEAKER) (test code = [place] 1538) [address] CALCIUM, [id number] 05:42:00 Test Item Value Reference Range Interpretation Comments CALCIUM IONIZED (BEAKER) (test 1.12 mmol/L 1.12-1.27 code = 698) PH, BLOOD (BEAKER) (test code = 7.34 1810) COMPREHENSIVE METABOLIC [id number] 05:33:00 Test Item Value Reference Range Interpretation [...] S NOT APPLICABLE FOR DIALYSIS PATIEN TS. [id number] 05:32:00 Test Item Value Reference Range Interpretation Comments PHOSPHORUS (BEAKER) (test code = 3.6 mg/dL 2.3-4.7 604) [id number] 05:32:00 Test Item Value Reference Range Interpretation Comments MAGNESIUM (BEAKER) (test code = 2.2 mg/dL 1.6-2.6 627) CBC W/PLT COUNT & AUTO [id number] 05:01:00 Test Item Value Reference Range Interpretation [...] PERCENT (BEAKER) (test code = 2801) POCT-GLUCOSE [id number] 21:04:00 Test Item Value Reference Range Interpretation Comments POC-GLUCOSE METER 165 mg/dL 70-110 H TESTED AT [place] [address] ([facility]) (test code = JULIANO Osborne [facility] 1538) [address] POCT-GLUCOSE [id number] 17:30:00 Test Item Value Reference Range Interpretation Comments POC-GLUCOSE METER 236 mg/dL 70-110 H TESTED AT [place] [address] ([facility]) (test code = MATTHIASIA Dylon [facility] 1538) [address] RAD, CHEST, 1 VIEW, NON [id number] 13:53:00Reason for exam:->assess for ill-defined opacityShould this [...] MDReport Verified Date/Time: 05/28/2017 13:53:03 Reading Location: [address] Radiology Reading Room POCT-GLUCOSE [id number] 11:53:00 Test Item Value Reference Range Interpretation Comments POC-GLUCOSE METER 215 mg/dL 70-110 H TESTED AT [place] [address] ([facility]) (test code = JULIANO Dylon [facility] 1538) [address] POCT-GLUCOSE [id number] 08:32:00 Test Item Value Reference Range Interpretation Comments POC-GLUCOSE METER 168 mg/dL 70-110 H TESTED AT [facility] 6720 (BEAKER) (test code = JULIANO Osborne [facility] 1538) [address] CALCIUM, [id number] 05:44:00 Test Item Value Reference Range Interpretation Comments CALCIUM IONIZED (BEAKER) (test 1.09 mmol/L 1.12-1.27 L code = 698) PH, BLOOD (BEAKER) (test code = 7.38 1810) [id number] 05:44:00 Test Item Value Reference Range Interpretation Comments PHOSPHORUS (BEAKER) (test code = 3.5 mg/dL 2.3-4.7 604) [id number] 05:44:00 Test Item Value Reference Range Interpretation Comments MAGNESIUM (BEAKER) (test code = 1.9 mg/dL 1.6-2.6 627) BASIC METABOLIC [id number] 05:44:00 Test Item Value Reference Range Interpretation [...] PATIEN TS. CBC W/PLT COUNT & AUTO [id number] 05:05:00 Test Item Value Reference Range Interpretation [...] PERCENT (BEAKER) (test code = 2801) POCT-GLUCOSE [id number] 21:03:00 Test Item Value Reference Range Interpretation Comments POC-GLUCOSE METER 173 mg/dL 70-110 H TESTED AT [place] [address] ([facility]) (test code = JUILANO Osborne [facility] 1538) [id number] [id number] 18:15:00 Test Item Value Reference Range Interpretation Comments ACTIVATED CLOTTING TIME 147 sec TEST ED AT [place] [address] ([facility]) (test code = JULIANO Osborne [facility] 441) [address] [id number] 18:15:00 Test Item Value Reference Range Interpretation Comments ACTIVATED CLOTTING TIME 246 sec TEST ED AT [place] [address] ([facility]) (test code = JULIANO Osborne [facility] 441) [address] POCT-GLUCOSE [id number] 12:39:00 Test Item Value Reference Range Interpretation Comments POC-GLUCOSE METER 219 mg/dL 70-110 H TESTED AT [place] [address] ([facility]) (test code = JULIANO Osborne [facility] 1538) [address] RAD, CHEST, 1 VIEW, NON [id number] 10:11:00Reason for exam:->pl effusionShould this be performed at the bedside?->YesFINAL REPORT Chest one view compared to May 26 Discussion: There is cardiac prominence. Upper lungs are clear. Ill-defined basilar densities are similar probably atelectasis. No gross effusion or pneumothorax with bilateral chest tubes in place. Signed: Jeannette Nava Verified Date/Time: 05/27/2017 10:11:44 Reading Location: [facility] Radiology Reading Room POCT-GLUCOSE METER 2017-05-27 07:05:00 Test Item Value Reference Range Interpretation Comments POC-GLUCOSE METER 167 mg/dL 70-110 H TESTED AT [place] [address] ([facility]) (test code = JULIANO Osborne [facility] 1538) [address] CALCIUM, [id number] 06:20:00 Test Item Value Reference Range Interpretation Comments CALCIUM IONIZED ([facility]) (test 0.98 mmol/L 1.12-1.27 L code = 698) PH, BLOOD (BEAKER) (test code = 7.50 1810) [id number] 04:56:00 Test Item Value Reference Range Interpretation Comments PHOSPHORUS (BEAKER) (test code = 2.6 mg/dL 2.3-4.7 604) [id number] 04:56:00 Test Item Value Reference Range Interpretation Comments MAGNESIUM (BEAKER) (test code = 2.0 mg/dL 1.6-2.6 627) BASIC METABOLIC [id number] 04:56:00 Test Item Value Reference Range Interpretation [...] PATIEN TS. CBC W/PLT COUNT & AUTO [id number] 04:36:00 Test Item Value Reference Range Interpretation [...] PERCENT (BEAKER) (test code = 2801) POCT-GLUCOSE [id number] 21:29:00 Test Item Value Reference Range Interpretation Comments POC-GLUCOSE METER 147 mg/dL 70-110 H TESTED AT [place] [address] ([facility]) (test [facility] = [facility] 1538) [address] POCT-GLUCOSE [id number] 17:51:00 Test Item Value Reference Range Interpretation Comments POC-GLUCOSE METER 224 mg/dL 70-110 H TESTED AT [facility] 6720 ([facility]) (test code = MATTHIASIA Dylon [facility] 1538) [address] POCT-GLUCOSE [id number] 13:53:00 Test Item Value Reference Range Interpretation Comments POC-GLUCOSE METER 182 mg/dL 70-110 H TESTED AT [facility] 6720 ([facility]) (test code = JULIANO Osborne [facility] 1538) [address] RAD, CHEST, 1 VIEW, NON [id number] 08:44:00Reason for exam:->pl effusionShould this be performed [...] No other significant change. Signed: Olaf Or[facility]ga [facility] Verified Date/Time: 05/26/2017 08:44:25 Reading Location: [address] Radiology Reading Room POCT- GLUCOSE [id number] 07:43:00 Test Item Value Reference Range Interpretation Comments POC-GLUCOSE METER 113 mg/dL 70-110 H TESTED AT [place] [address] ([facility]) (test code = JULIANO Osborne [facility] 1538) [address] CALCIUM, [id number] 06:31:00 Test Item Value Reference Range Interpretation Comments CALCIUM IONIZED (BEAKER) (test 1.07 mmol/L 1.12-1.27 L code = 698) [facility]LOOD [facility] (test code = 7.38 1810) [id number] 04:51:00 Test Item Value Reference Range Interpretation Comments PHOSPHORUS (BEAKER) (test code = 3.2 mg/dL 2.3-4.7 604) [id number] 04:51:00 Test Item Value Reference Range Interpretation Comments MAGNESIUM (BEAKER) (test code = 2.1 mg/dL 1.6-2.6 627) BASIC METABOLIC [id number] 04:51:00 Test Item Value Reference Range Interpretation [...] PATIEN TS. CBC W/PLT COUNT & AUTO [id number] 04:27:00 Test Item Value Reference Range Interpretation [...] PERCENT (BEAKER) (test code = 2801) POCT-GLUCOSE [id number] 23:48:00 Test Item Value Reference Range Interpretation Comments POC-GLUCOSE METER 123 mg/dL 70-110 H TEST[facility] AT [place] [address] [facility] (test code = [facility] 1538) [address] POCT-GLUCOSE [id number] 16:46:00 Test Item Value Reference Range Interpretation Comments POC-GLUCOSE METER 178 mg/dL 70-110 H TESTED AT [place] [address] [facility] (test code = [facility] 1538) [address] BASIC METABOLIC [id number] 05:53:00 Test Item Value Reference Range Interpretation [...] S NOT APPLICABLE FOR DIALYSIS PATIEN TS. [id number] 05:52:00 Test Item Value Reference Range Interpretation Comments PHOSPHORUS (BEAKER) (test code = 4.2 mg/dL 2.3-4.7 604) [id number] 05:52:00 Test Item Value Reference Range Interpretation Comments MAGNESIUM (BEAKER) (test code = 2.3 mg/dL 1.6-2.6 627) CALCIUM, [id number] 05:27:00 Test Item Value Reference Range Interpretation Comments CALCIUM IONIZED (BEAKER) (test 1.12 mmol/L 1.12-1.27 code = 698) PH, BLOOD (BEAKER) (test code = 7.38 1810) CBC W/PLT COUNT & AUTO [id number] 05:07:00 Test Item Value Reference Range Interpretation [...] = 2801) RAD, CHEST, 1 VIEW, NON [id number] 04:45:00Reason for exam:->pl effusionShould this be performed at the bedside?->YesFINAL REPORT RAD, CHEST, 1 VIEW, NON DEPT INDICATION: pl effusion COMPARISON:Prior day's exam FINDINGS: Portable frontal view of the chest. IMPRESSION: Support Lines: Stable.Lungs and pleura: Unchanged airspace and pleural opacities. No pneumothorax.Heart and mediastinum: Stable contours. Stable surgical changes.Additional findings: None. Signed: JR Boswell Robert MDReport Verified Date/Time: 05/25/2017 04:45:08 Reading Location: [facility] C0[facility] CT Body Reading Room POCT-GLUCOSE [id number] 01:52:00 Test Item Value Reference Range Interpretation Comments POC-GLUCOSE METER 126 mg/dL 70-110 H TESTED AT [facility] 67[address] ([facility]) (test code = JULIANO Osborne [place] 1538) [address] POCT-GLUCOSE [id number] 13:07:00 Test Item Value Reference Range Interpretation Comments POC-GLUCOSE METER 118 mg/dL 70-110 H TESTED AT [facility] 6720 ([facility]) (test code = JULIANO Osborne [facility] 1538) [address] BRONCHIAL CULTURE + GRAM [id number] 11:35:00 Test Item Value Reference Range Interpretation [...] <1+ gram (BEAKER) (test code = positive 949239) cocci in pairs GRAM STAIN RESULT 1+ gram (BEAKER) (test code = variable rods 535519) 1+ Normal respiratory todd presentRAD, CHEST, 1 VIEW, NON [id number] 06:50:00Reason for exam:->pl effusionShould this be performed at the bedside?->YesFINAL REPORT RAD, CHEST, 1 VIEW, NON DEPT INDICATION: pl effusion COMPARISON:Prior day's exam FINDINGS: Portable frontal view of the chest. IMPRESSION: Support Lines: Stable.Lungs and pleura: Unchanged airspace and pleural opacities. No pneumothorax.Heart and mediastinum: Stable contours. Stable surgical changes.Additional findings: None. Signed: JR Boswell Robert MDReport Verified Date/Time: 05/24/2017 06:50:08 Reading Location: [facility] C013Y CT Body Reading Room BASIC METABOLIC [id number] 04:19:00 Test Item Value Reference Range Interpretation [...] 697) EGFR (BEAKER) (test 18 mL/min/1.73 ESTIMA IHNA GFR IS code = 1092) sq m NOT ACCURATE CREATININE CLEARANCE IN PREDICTING GLOMERULAR FILTRATION RATE . ESTIMATED GFR I S NOT APPLICABLE FOR DIALYSIS PATIEN TS. CALCIUM, [id number] 04:16:00 Test Item Value Reference Range Interpretation Comments CALCIUM IONIZED (BEAKER) (test 1.06 mmol/L 1.12-1.27 L code = 698) PH, BLOOD (BEAKER) (test code = 7.40 1810) [id number] 04:11:00 Test Item Value Reference Range Interpretation Comments PHOSPHORUS (BEAKER) (test code = 6.0 mg/dL 2.3-4.7 H 604) [id number] 04:11:00 Test Item Value Reference Range Interpretation Comments MAGNESIUM (BEAKER) (test code = 2.4 mg/dL 1.6-2.6 627) CBC W/PLT COUNT & AUTO [id number] 03:50:00 Test Item Value Reference Range Interpretation [...] 417) IMMATURE GRANULOCYTES-RELATIVE 0 % 0-1 PERCENT ([facility]) (test code = 2801) POCT-GLUCOSE [id number] 20:45:00 Test Item Value Reference Range Interpretation Comments POC-GLUCOSE METER 143 mg/dL 70-110 H TESTED AT [place] [address] ([facility]) (test code = [facility] 1538) [address] POCT-GLUCOSE [id number] 20:45:00 Test Item Value Reference Range Interpretation Comments POC-GLUCOSE METER 145 mg/dL 70-110 H TESTED AT [place] [address] ([facility]) (test code = [facility] Dylon [facility] 1538) [address] [id number] 13:37:00 Test Item Value Reference Range Interpretation Comments PREALBUMIN (BEAKER) 10 mg/dL 14-45 L Specimen slightly (test code = 586) hemolyzed OXYGEN SATURATION, [id number] 12:31:00 Test Item Value Reference Range Interpretation Comments O2 SATURATION (MEASURED) ([facility]) 94.5 % (test code = 1455) [id number] 11:02:00 Test Item Value Reference Range Interpretation Comments PREALBUMIN (BEAKER) (test code = 10 mg/dL 14-45 L 586) RAD, CHEST, 1 VIEW, NON [id number] 05:14:00while patient is intubated or has chest [...] Signed: JR Elbert, Kelly Bettencourt Verified Date/Time: 05/23/2017 05:14:04 Reading Location: [facility] C013Y CT Body Reading Room BASIC METABOLIC [id number] 03:48:00 Test Item Value Reference Range Interpretation [...] S NOT APPLICABLE FOR DIALYSIS PATIEN TS. [id number] 03:46:00 Test Item Value Reference Range Interpretation Comments MAGNESIUM (BEAKER) 2.4 mg/dL 1.6-2.6 Specimen slightly (test code = 627) hemolyzed [id number] 03:46:00 Test Item Value Reference Range Interpretation Comments PHOSPHORUS (BEAKER) 6.5 mg/dL 2.3-4.7 H Specimen slightly (test code = 604) hemolyzed CBC W/PLT COUNT & AUTO [id number] 03:26:00 Test Item Value Reference Range Interpretation [...] (BEAKER) (test code = 2801) BLOOD GAS, [id number] 03:18:00 Test Item Value Reference Range Interpretation [...] (test code = 1819) 36.0 % CALCIUM, [id number] 16:32:00 Test Item Value Reference Range Interpretation Comments CALCIUM IONIZED (BEAKER) (test 1.11 mmol/L 1.12-1.27 L code = 698) PH, BLOOD (BEAKER) (test code = 7.39 1810) BASIC METABOLIC [id number] 15:43:00 Test Item Value Reference Range Interpretation [...] NOT APPLICABLE FOR DIALYSIS PATIEN TS. POCT-GLUCOSE [id number] 12:53:00 Test Item Value Reference Range Interpretation Comments POC-GLUCOSE METER 118 mg/dL 70-110 H TESTED AT [facility] 6720 [facility] (test code = JULIANO Osborne [facility] 1538) [address] BLOOD GAS, [id number] 10:42:00 Test Item Value Reference Range Interpretation [...] (test code = 1819) 40.0 % POCT-GLUCOSE [id number] 06:46:00 Test Item Value Reference Range Interpretation Comments POC-GLUCOSE METER 106 mg/dL 70-110 TESTED AT [place] [address] ([facility]) (test code = JULIANO Osborne [facility] 1538) [address] RAD, CHEST, 1 VIEW, NON [id number] 05:05:00while patient is intubated or has chest [...] MDReport Verified Date/Time: 05/22/2017 05:05:00 Reading Location: [facility] C013Y CT Body ReadingRoom BASIC METABOLIC [id number] 05:00:00 Test Item Value Reference Range Interpretation [...] S NOT APPLICABLE FOR DIALYSIS PATIEN TS. [id number] 04:41:00 Test Item Value Reference Range Interpretation Comments PHOSPHORUS (BEAKER) (test code = 6.4 mg/dL 2.3-4.7 H 604) [id number] 04:41:00 Test Item Value Reference Range Interpretation Comments MAGNESIUM (BEAKER) (test code = 2.6 mg/dL 1.6-2.6 627) CALCIUM, [id number] 04:26:00 Test Item Value Reference Range Interpretation Comments CALCIUM IONIZED (BEAKER) (test 1.09 mmol/L 1.12-1.27 L code = 698) PH, BLOOD (BEAKER) (test code = 7.40 1810) OXYGEN SATURATION, [id number] 04:25:00 Test Item Value Reference Range Interpretation Comments O2 SATURATION (MEASURED) (BEAKER) 77.0 % (test code = 1455) CBC W/PLT COUNT & AUTO [id number] 04:17:00 Test Item Value Reference Range Interpretation [...] code = 2801) LACTIC ACID, ARTERIAL, WHOLE [id number] 00:07:00 Test Item Value Reference Range Interpretation Comments LACTATE BLOOD 1.0 mmol/L 0.5-2.2 Specimen sligh tly ARTERIAL (2) (BEAKER) hemoly ted (test code = 2874) Effective 08/02/2015: Units/Reference Range ChangeNew: 0.5-2.2 mmol/L Previous: 5-20 mg/dLPOCT-GLUCOSE [id number] 23:47:00 Test Item Value Reference Range Interpretation Comments POC-GLUCOSE METER 180 mg/dL 70-110 H TESTED AT [facility] 6720 (BEAKER) (test code = J[place]IANO [place] 1538) [address] BLOOD GAS, [id number] 23:46:00 Test Item Value Reference Range Interpretation [...] code = 1819) 100.0 % SODIUM NA-STAT [id number] 23:46:00 Test Item Value Reference Range Interpretation Comments SODIUM (BEAKER) (test code = 381) 134 meq/L 135-148 L GLUCOSE-STAT [id number] 23:46:00 Test Item Value Reference Range Interpretation Comments GLUCOSE RANDOM (BEAKER) (test code 119 mg/dL 70-110 H = 652) HGB/HCT (H&H) - STAT [id number] 23:46:00 Test Item Value Reference Range Interpretation Comments HEMOGLOBIN (BEAKER) (test code = 8.8 g/dL 12.0-15.0 L 410) HEMATOCRIT (BEAKER) (test code = 26.0 % 36.0-45.0 L 411) OXYGEN SATURATION, [id number] 23:45:00 Test Item Value Reference Range Interpretation Comments O2 SATURATION (MEASURED) ([facility]) 68.1 % (test code = 1455) POTASSIUM-STAT [id number] 23:45:00 Test Item Value Reference Range Interpretation Comments POTASSIUM ([facility]) (test code = 5.5 meq/L 3.6-5.5 379) POCT-GLUCOSE [id number] 20:58:00 Test Item Value Reference Range Interpretation Comments POC-GLUCOSE METER 133 mg/dL 70-110 H TESTED AT [place] [address] ([facility]) (test code = [place] 1538) [address] POCT-GLUCOSE [id number] 17:58:00 Test Item Value Reference Range Interpretation Comments POC-GLUCOSE METER 210 mg/dL 70-110 H TESTED AT [place] [address] ([facility]) (test code = [place] 1538) [address] POCT-GLUCOSE [id number] 17:58:00 Test Item Value Reference Range Interpretation Comments POC-GLUCOSE METER 211 mg/dL 70-110 H TESTED AT [place] [address] ([facility]) (test code = [place] 1538) [address] POCT-GLUCOSE [id number] 17:58:00 Test Item Value Reference Range Interpretation Comments POC-GLUCOSE METER 232 mg/dL 70-110 H TESTED AT [place] [address] ([facility]) (test code = [place] 1538) [address] POCT-GLUCOSE [id number] 17:58:00 Test Item Value Reference Range Interpretation Comments POC-GLUCOSE METER 262 mg/dL 70-110 H TESTED AT [place] [address] ([facility]) (test code = [place] 1538) [address] BLOOD GAS, [id number] 17:01:00 Test Item Value Reference Range Interpretation Comments PH ARTERIAL ([facility]) (test code = 7.38 7.35-7.45 383) PCO2 ARTERIAL ([facility]) (test code 39 mmHg 35-45 = 384) PO2 ARTERIAL ([facility]) (test code 75 mmHg 80-90 L = 385) O2 SATURATION ARTERIAL ([facility]) 94.9 % 96.0-97.0 L (test code = 386) HCO3 ARTERIAL (BEAKER) (test code 23 mmol/L 21-29 = 388) BASE EXCESS ARTERIAL (BEAKER) -2.5 mmol/L -2.0-3.0 L (test code = 387) PATIENT TEMPERATURE (BEAKER) 36.8 C (test code = 1818) FIO2 (BEAKER) (test code = 1819) 60.0 % POTASSIUM-STAT [id number] 17:00:00 Test Item Value Reference Range Interpretation Comments POTASSIUM (BEAKER) (test code = 4.8 meq/L 3.6-5.5 379) POCT-GLUCOSE [id number] 15:52:00 Test Item Value Reference Range Interpretation Comments POC-GLUCOSE METER 267 mg/dL 70-110 H TESTED AT [place] [address] (BEAKER) (test code = JULIANO Osborne [facility] 1538) [address] POCT-GLUCOSE [id number] 14:42:00 Test Item Value Reference Range Interpretation Comments POC-GLUCOSE METER 231 mg/dL 70-110 H TEST[facility] AT [place] [address] [facility] (test code = JULIANO Osborne [facility] 1538) [address] BODY FLUID CELL COUNT WITH [id number] 14:41:00 Test Item Value Reference Range Interpretation [...] Tube (test code = 2873) BASIC METABOLIC [id number] 14:11:00 Test Item Value Reference Range Interpretation [...] S NOT APPLICABLE FOR DIALYSIS PATIEN TS. [id number] 14:08:00 Test Item Value Reference Range Interpretation Comments PHOSPHORUS (BEAKER) (test code = 7.2 mg/dL 2.3-4.7 H 604) [id number] 14:08:00 Test Item Value Reference Range Interpretation Comments MAGNESIUM (BEAKER) (test code = 2.6 mg/dL 1.6-2.6 627) POCT-GLUCOSE [id number] 12:49:00 Test Item Value Reference Range Interpretation Comments POC-GLUCOSE METER 224 mg/dL 70-110 H TESTED AT [facility] 6720 [facility] (test code = [place]IANO [place] 1538) [address] POCT-GLUCOSE [id number] 12:49:00 Test Item Value Reference Range Interpretation Comments POC-GLUCOSE METER 248 mg/dL 70-110 H TESTED AT [facility] 6720 ([facility]) (test code = JULIANO [place] 1538) [address] RAD, CHEST, 1 VIEW, NON [id number] 12:32:00Reason for exam:->re-intubationShould this be performed at [...] MDReport Verified Date/Time: 05/21/2017 12:32:08 Reading Location: [facility] Radiology Reading Room POTASSIUM-STAT [id number] 12:28:00 Test Item Value Reference Range Interpretation Comments POTASSIUM (BEAKER) (test code = 5.5 meq/L 3.6-5.5 379) BLOOD GAS, [id number] 12:28:00 Test Item Value Reference Range Interpretation [...] code = 1819) 100.0 % BLOOD GAS, [id number] 10:53:00 Test Item Value Reference Range Interpretation [...] 36.0 % RAD, CHEST, 1 VIEW, NON [id number] 08:46:00while patient is intubated or has chest [...] MDReport Verified Date/Time: 05/21/2017 08:46:27 Reading Location: [facility] Radiology Reading Room BLOOD GAS, [id number] 05:41:00 Test Item Value Reference Range Interpretation [...] (BEAKER) (test code = 1819) 40 CALCIUM, [id number] 04:35:00 Test Item Value Reference Range Interpretation Comments CALCIUM IONIZED (BEAKER) (test 1.13 mmol/L 1.12-1.27 code = 698) PH, BLOOD (BEAKER) (test code = 7.32 1810) BLOOD GAS, [id number] 04:28:00 Test Item Value Reference Range Interpretation [...] (BEAKER) (test code = 1819) 40.0 % [id number] 04:20:00 Test Item Value Reference Range Interpretation Comments PHOSPHORUS (BEAKER) (test code = 6.2 mg/dL 2.3-4.7 H 604) [id number] 04:20:00 Test Item Value Reference Range Interpretation Comments MAGNESIUM (BEAKER) (test code = 2.4 mg/dL 1.6-2.6 627) HEPATIC FUNCTION [id number] 04:20:00 Test Item Value Reference Range Interpretation [...] = 11 U/L 6-55 347) BASIC METABOLIC [id number] 04:20:00 Test Item Value Reference Range Interpretation [...] APPLICABLE FOR DIALYSIS PATIEN TS. OXYGEN SATURATION, [id number] 04:18:00 Test Item Value Reference Range Interpretation Comments O2 SATURATION (MEASURED) (BEAKER) 68.0 % (test code = 1455) LACTIC ACID, ARTERIAL, WHOLE [id number] 04:12:00 Test Item Value Reference Range Interpretation Comments LACTATE BLOOD ARTERIAL (2) 1.0 mmol/L 0.5-2.2 (BEAKER) (test code = 2874) Effective 08/02/2015: Units/Reference Range ChangeNew: 0.5-2.2 mmol/L Previous: 5-20 mg/dLCBC W/PLT COUNT & AUTO [id number] 04:00:00 Test Item Value Reference Range Interpretation [...] (BEAKER) (test code = 2801) BLOOD GAS, [id number] 00:06:00 Test Item Value Reference Range Interpretation [...] (BEAKER) (test code = 1819) 40.0 % [id number] 18:55:00 Test Item Value Reference Range Interpretation Comments PHOSPHORUS (BEAKER) (test code = 4.8 mg/dL 2.3-4.7 H 604) [id number] 18:55:00 Test Item Value Reference Range Interpretation Comments MAGNESIUM (BEAKER) (test code = 2.3 mg/dL 1.6-2.6 627) BASIC METABOLIC [id number] 18:55:00 Test Item Value Reference Range Interpretation [...] DIALYSIS PATIEN TS. LACTIC ACID, ARTERIAL, WHOLE [id number] 18:53:00 Test Item Value Reference Range Interpretation Comments LACTATE BLOOD 0.9 mmol/L 0.5-2.2 Specimen sligh tly ARTERIAL (2) (BEAKER) hemoly zed (test code = 2874) Effective 08/02/2015: Units/Reference Range ChangeNew: 0.5-2.2 mmol/L Previous: 5-20 mg/dLRAD, CHEST, 1 VIEW, NON [id number] 18:44:00Reason for exam:- >postop cardiacShould this be [...] MDReport Verified Date/Time: 05/20/2017 18:44:30 Reading Location: [address] Consult Reading Room Electronically signed by: MIGUEL BHAKTA M.D. on05/20/2017 06:44 PMCBC W/PLT COUNT & AUTO [id number] 18:38:00 Test Item Value Reference Range Interpretation [...] (BEAKER) (test code = 2801) OXYGEN SATURATION, [id number] 18:36:00 Test Item Value Reference Range Interpretation Comments O2 SATURATION (MEASURED) (BEAKER) 72.5 % (test code = 1455) From distal port of IJ central venous catheterSODIUM NA-STAT [id number] 18:30:00 Test Item Value Reference Range Interpretation Comments SODIUM (BEAKER) (test code = 381) 132 meq/L 135-148 L HGB/HCT (H&H) - STAT [id number] 18:30:00 Test Item Value Reference Range Interpretation Comments HEMOGLOBIN (BEAKER) (test code = 9.4 g/dL 12.0-15.0 L 410) HEMATOCRIT (BEAKER) (test code = 28.0 % 36.0-45.0 L 411) GLUCOSE-STAT [id number] 18:30:00 Test Item Value Reference Range Interpretation Comments GLUCOSE RANDOM (BEAKER) (test code 159 mg/dL 70-110 H = 652) BLOOD GAS, [id number] 18:30:00 Test Item Value Reference Range Interpretation [...] (test code = 1819) 60.0 % CALCIUM, [id number] 18:30:00 Test Item Value Reference Range Interpretation Comments CALCIUM IONIZED (BEAKER) (test 0.94 mmol/L 1.12-1.27 L code = 698) PH, BLOOD (BEAKER) (test code = 7.34 1810) POTASSIUM-STAT [id number] 18:28:00 Test Item Value Reference Range Interpretation [...] (test code = 1411) [facility] FIBRINOGEN ACTIVITY ([facility]) 69.0 degrees 61.0-73.0 (test code = 1412) [facility] PLT. AGGREGATION ([facility]) 62.8 MM 55.0-65.0 (test code = 1413) [facility] FIBRINOLYSIS ([facility]) (test 0.0 % 0.0-5.0 code = 1414) [id number] 17:53:00 Test Item Value Reference Range Interpretation Comments ACTIVATED CLOTTING TIME 103 sec TEST ED AT [place] [address] ([facility]) (test code = [place] [address]) [id number] 17:53:00 Test Item Value Reference Range Interpretation Comments ACTIVATED CLOTTING TIME 466 sec TEST ED AT [place] [address] ([facility]) (test code = [place]IANO [place] [address]) [address] [id number] 17:53:00 Test Item Value Reference Range Interpretation Comments ACTIVATED CLOTTING TIME 543 sec TEST ED AT [place] [address] ([facility]) (test code = [place] [address]) [address] [id number] 17:53:00 Test Item Value Reference Range Interpretation Comments ACTIVATED CLOTTING TIME 549 sec TEST ED AT [place] [address] ([facility]) (test code = [place]O [place] [address]) [address] [id number] 17:53:00 Test Item Value Reference Range Interpretation Comments ACTIVATED CLOTTING TIME 632 sec TEST ED AT [place] [address] ([facility]) (test code = [place]O [place] [address]) [address] [id number] 17:53:00 Test Item Value Reference Range Interpretation Comments ACTIVATED CLOTTING TIME 494 sec TEST ED AT [place] [address] ([facility]) (test code = [place] [address]) [address] [id number] 17:53:00 Test Item Value Reference Range Interpretation Comments ACTIVATED CLOTTING TIME 587 sec TEST ED AT [place] [address] ([facility]) (test code = [place]O [place] [address]) [address] [id number] 17:53:00 Test Item Value Reference Range Interpretation Comments ACTIVATED CLOTTING TIME 626 sec TEST ED AT [place] [address] ([facility]) (test code = [place]O [place] [address]) [address] [id number] 17:52:00 Test Item Value Reference Range Interpretation Comments ACTIVATED CLOTTING TIME 808 sec TEST ED AT [facility] 6720 (BEAKER) (test code = [place]IANO [place] [address]) [address] [id number] 16:54:00 Test Item Value Reference Range Interpretation Comments PARTIAL THROMBOPLASTIN TIME 40.2 seconds 22.5-36.0 H (BEAKER) (test code = 760) [id number] 16:53:00 Test Item Value Reference Range Interpretation Comments FIBRINOGEN LEVEL (BEAKER) (test 306 mg/dl 225-434 code = 658) PROTHROMBIN [id number] 16:50:00 Test Item Value Reference Range Interpretation Comments PROTIME (BEAKER) (test code = 19.6 seconds 11.7-14.7 H 759) INR (BEAKER) (test code = 370) 1.7 <=5.9 RECOMMENDED COUMADIN/WARFARIN INR THERAPY RANGESSTANDARD DOSE: 2.0 - 3.0 Includes: PROPHYLAXIS forvenous thrombosis, systemic embolization; TREATMENT for venous thrombosis and/or pulmonary embolus.HIGH RISK: Target INR is 2.5-3.5 for patients with mechanical heart valves.PLATELET [id number] 16:45:00 Test Item Value Reference Range Interpretation Comments PLATELET COUNT (BEAKER) (test 136 K/CU MM 150-450 L code = 756) POTASSIUM-STAT [id number] 16:15:00 Test Item Value Reference Range Interpretation Comments POTASSIUM (BEAKER) (test code = 4.9 meq/L 3.6-5.5 379) BLOOD GAS, [id number] 16:15:00 Test Item Value Reference Range Interpretation [...] code = 1819) 100.0 % SODIUM NA-STAT [id number] 16:15:00 Test Item Value Reference Range Interpretation Comments SODIUM (BEAKER) (test code = 381) 131 meq/L 135-148 L GLUCOSE-STAT [id number] 16:15:00 Test Item Value Reference Range Interpretation Comments GLUCOSE RANDOM (BEAKER) (test code 198 mg/dL 70-110 H = 652) HGB/HCT (H&H) - STAT [id number] 16:15:00 Test Item Value Reference Range Interpretation Comments HEMOGLOBIN (BEAKER) (test code = 7.5 g/dL 12.0-15.0 L 410) HEMATOCRIT (BEAKER) (test code = 22.0 % 36.0-45.0 L 411) CALCIUM, [id number] 16:14:00 Test Item Value Reference Range Interpretation Comments CALCIUM IONIZED (BEAKER) (test 0.91 mmol/L 1.12-1.27 L code = 698) PH, BLOOD (BEAKER) (test code = 7.39 1810) BLOOD GAS, [id number] 15:39:00 Test Item Value Reference Range Interpretation [...] code = 1819) 70.0 % SODIUM NA-STAT [id number] 15:39:00 Test Item Value Reference Range Interpretation Comments SODIUM (BEAKER) (test code = 381) 131 meq/L 135-148 L GLUCOSE-STAT [id number] 15:39:00 Test Item Value Reference Range Interpretation Comments GLUCOSE RANDOM (BEAKER) (test code 186 mg/dL 70-110 H = 652) HGB/HCT (H&H) - STAT [id number] 15:39:00 Test Item Value Reference Range Interpretation Comments HEMOGLOBIN (BEAKER) (test code = 7.5 g/dL 12.0-15.0 L 410) HEMATOCRIT (BEAKER) (test code = 22.0 % 36.0-45.0 L 411) POTASSIUM-STAT [id number] 15:38:00 Test Item Value Reference Range Interpretation Comments POTASSIUM (BEAKER) (test code = 5.3 meq/L 3.6-5.5 379) BLOOD GAS, [id number] 15:24:00 Test Item Value Reference Range Interpretation [...] code = 1819) 70.0 % SODIUM NA-STAT [id number] 15:24:00 Test Item Value Reference Range Interpretation Comments SODIUM (BEAKER) (test code = 381) 130 meq/L 135-148 L GLUCOSE-STAT [id number] 15:24:00 Test Item Value Reference Range Interpretation Comments GLUCOSE RANDOM (BEAKER) (test code 189 mg/dL 70-110 H = 652) HGB/HCT (H&H) - STAT [id number] 15:24:00 Test Item Value Reference Range Interpretation Comments HEMOGLOBIN (BEAKER) (test code = 6.7 g/dL 12.0-15.0 L 410) HEMATOCRIT (BEAKER) (test code = 20.0 % 36.0-45.0 L 411) POTASSIUM-STAT [id number] 15:23:00 Test Item Value Reference Range Interpretation Comments POTASSIUM (BEAKER) (test code = 5.4 meq/L 3.6-5.5 379) BLOOD GAS, [id number] 15:07:00 Test Item Value Reference Range Interpretation [...] code = 1819) 70.0 % SODIUM NA-STAT [id number] 15:07:00 Test Item Value Reference Range Interpretation Comments SODIUM (BEAKER) (test code = 381) 129 meq/L 135-148 L GLUCOSE-STAT [id number] 15:07:00 Test Item Value Reference Range Interpretation Comments GLUCOSE RANDOM (BEAKER) (test code 172 mg/dL 70-110 H = 652) HGB/HCT (H&H) - STAT [id number] 15:07:00 Test Item Value Reference Range Interpretation Comments HEMOGLOBIN (BEAKER) (test code = 7.1 g/dL 12.0-15.0 L 410) HEMATOCRIT (BEAKER) (test code = 21.0 % 36.0-45.0 L 411) POTASSIUM-STAT [id number] 15:04:00 Test Item Value Reference Range Interpretation Comments POTASSIUM (BEAKER) (test code = 5.0 meq/L 3.6-5.5 379) BLOOD GAS, [id number] 14:21:00 Test Item Value Reference Range Interpretation [...] code = 1819) 70.0 % SODIUM NA-STAT [id number] 14:21:00 Test Item Value Reference Range Interpretation Comments SODIUM (BEAKER) (test code = 381) 133 meq/L 135-148 L GLUCOSE-STAT [id number] 14:21:00 Test Item Value Reference Range Interpretation Comments GLUCOSE RANDOM (BEAKER) (test code 160 mg/dL 70-110 H = 652) HGB/HCT (H&H) - STAT [id number] 14:21:00 Test Item Value Reference Range Interpretation Comments HEMOGLOBIN (BEAKER) (test code = 7.5 g/dL 12.0-15.0 L 410) HEMATOCRIT (BEAKER) (test code = 22.0 % 36.0-45.0 L 411) POTASSIUM-STAT [id number] 14:20:00 Test Item Value Reference Range Interpretation Comments POTASSIUM (BEAKER) (test code = 4.7 meq/L 3.6-5.5 379) BLOOD GAS, [id number] 13:58:00 Test Item Value Reference Range Interpretation [...] code = 1819) 80.0 % SODIUM NA-STAT [id number] 13:58:00 Test Item Value Reference Range Interpretation Comments SODIUM (BEAKER) (test code = 381) 132 meq/L 135-148 L GLUCOSE-STAT [id number] 13:58:00 Test Item Value Reference Range Interpretation Comments GLUCOSE RANDOM (BEAKER) (test code 166 mg/dL 70-110 H = 652) HGB/HCT (H&H) - STAT [id number] 13:58:00 Test Item Value Reference Range Interpretation Comments HEMOGLOBIN (BEAKER) (test code = 7.5 g/dL 12.0-15.0 L 410) HEMATOCRIT (BEAKER) (test code = 22.0 % 36.0-45.0 L 411) POTASSIUM-STAT [id number] 13:57:00 Test Item Value Reference Range Interpretation Comments POTASSIUM (BEAKER) (test code = 4.7 meq/L 3.6-5.5 379) BLOOD GAS, [id number] 13:35:00 Test Item Value Reference Range Interpretation [...] (test code = 1819) 80.0 % GLUCOSE-STAT [id number] 13:35:00 Test Item Value Reference Range Interpretation Comments GLUCOSE RANDOM (BEAKER) (test code 130 mg/dL 70-110 H = 652) HGB/HCT (H&H) - STAT [id number] 13:35:00 Test Item Value Reference Range Interpretation Comments HEMOGLOBIN (BEAKER) (test code = 6.7 g/dL 12.0-15.0 L 410) HEMATOCRIT (BEAKER) (test code = 20.0 % 36.0-45.0 L 411) SODIUM NA-STAT [id number] 13:35:00 Test Item Value Reference Range Interpretation Comments SODIUM (BEAKER) (test code = 381) 133 meq/L 135-148 L POTASSIUM-STAT [id number] 13:34:00 Test Item Value Reference Range Interpretation Comments POTASSIUM (BEAKER) (test code = 4.2 meq/L 3.6-5.5 379) BLOOD GAS, [id number] 13:16:00 Test Item Value Reference Range Interpretation [...] code = 1819) 80.0 % SODIUM NA-STAT [id number] 13:16:00 Test Item Value Reference Range Interpretation Comments SODIUM (BEAKER) (test code = 381) 133 meq/L 135-148 L HGB/HCT (H&H) - STAT [id number] 13:16:00 Test Item Value Reference Range Interpretation Comments HEMOGLOBIN (BEAKER) (test code = 6.3 g/dL 12.0-15.0 L 410) HEMATOCRIT (BEAKER) (test code = 19.0 % 36.0-45.0 L 411) CALCIUM, [id number] 13:15:00 Test Item Value Reference Range Interpretation Comments CALCIUM IONIZED (BEAKER) (test 0.98 mmol/L 1.12-1.27 L code = 698) PH, BLOOD (BEAKER) (test code = 7.34 1810) BLOOD GAS, [id number] 13:15:00 Test Item Value Reference Range Interpretation [...] (test code = 1819) 80.0 % GLUCOSE-STAT [id number] 13:14:00 Test Item Value Reference Range Interpretation Comments GLUCOSE RANDOM (BEAKER) (test code = 92 mg/dL 70-110 652) POTASSIUM-STAT [id number] 13:14:00 Test Item Value Reference Range Interpretation Comments POTASSIUM (BEAKER) (test code = 3.9 meq/L 3.6-5.5 379) BLOOD GAS, [id number] 10:54:00 Test Item Value Reference Range Interpretation [...] 1819) 100.0 % HGB/HCT (H&H) - STAT [id number] 10:54:00 Test Item Value Reference Range Interpretation Comments HEMOGLOBIN (BEAKER) (test code = 9.3 g/dL 12.0-15.0 L 410) HEMATOCRIT (BEAKER) (test code = 27.0 % 36.0-45.0 L 411) SODIUM NA-STAT [id number] 10:54:00 Test Item Value Reference Range Interpretation Comments SODIUM (BEAKER) (test code = 381) 132 meq/L 135-148 L GLUCOSE-STAT [id number] 10:52:00 Test Item Value Reference Range Interpretation Comments GLUCOSE RANDOM (BEAKER) (test code = 94 mg/dL 70-110 652) POTASSIUM-STAT [id number] 10:52:00 Test Item Value Reference Range Interpretation Comments POTASSIUM (BEAKER) (test code = 4.0 meq/L 3.6-5.5 379) HEMOGLOBIN [id number] 09:50:00 Test Item Value Reference Range Interpretation Comments HEMOGLOBIN A1C (BEAKER) (test code = 10.6 % 4.3-6.1 H 368) PLATELET AGGREGATION: FUNCTION [id number] 08:27:00 Test Item Value Reference Range Interpretation Comments WEAK ADP 63 % 60-91 RESULT(BEAKER) (test code = 2135) PLATELET FUNCTION 60-100% indicates SCREEN INTERP (BEAKER) normal platelet (test code = 2173) function [id number] Toshia Post MD ([facility]) (test code = (electronic signature) 1543) PLATELET COUNT AGG 198 K/CU MM 150-450 (BEAKER) (test code = 2656) for patients on clopidogrel in past two weeksPOCT-GLUCOSE [id number] 08:11:00 Test Item Value Reference Range Interpretation Comments POC-GLUCOSE METER 116 mg/dL 70-110 H TESTED AT [facility] 6720 (AKER) (test code = [place] 1538) [address] [id number] 07:10:00 Test Item Value Reference Range Interpretation Comments PHOSPHORUS (BEAKER) (test code = 4.5 mg/dL 2.3-4.7 604) [id number] 07:10:00 Test Item Value Reference Range Interpretation Comments MAGNESIUM (BEAKER) (test code = 2.1 mg/dL 1.6-2.6 627) BASIC METABOLIC [id number] 07:10:00 Test Item Value Reference Range Interpretation [...] = 700) CBC W/PLT COUNT & AUTO [id number] 06:46:00 Test Item Value Reference Range Interpretation [...] PERCENT (BEAKER) (test code = 2801) CALCIUM, [id number] 06:40:00 Test Item Value Reference Range Interpretation Comments CALCIUM IONIZED (BEAKER) (test 1.06 mmol/L 1.12-1.27 L code = 698) PH, BLOOD (BEAKER) (test code = 7.39 1810) POCT-GLUCOSE [id number] 23:22:00 Test Item Value Reference Range Interpretation Comments POC-GLUCOSE METER 165 mg/dL 70-110 H TESTED AT [facility] 6720 (BEAKER) (test code = [place]IANO [place] 1538) [address] URINE PROTEIN ELECTROPHORESIS, [id number] 18:02:00 Test Item Value Reference Range Interpretation Comments PROTEIN, URINE 305 mg/dL 0-14 H (BEAKER) (test code = 1569) ALBUMIN URINE ELP 70.9 % (BEAKER) (test code = 1018) GAMMA GLOBULIN URINE 29.1 % (BEAKER) (test code = 1015) UPEP, ID-438 ([facility]) No monoclonal bands (test code = 2604) detected. [id number] Rocio Galindo MD ([facility]) (test code = (electronic signature) 2605) PROTEIN ELECTROPHORESIS, [id number] 17:57:00 Test Item Value Reference Range Interpretation [...] all globulin fractions. No monoclonal bands detected. TENS-[id number]-043 Rocio Galindo MD ([facility]) (test code = (electronic signature) 2617) PROTEIN TOTAL SERUM, 5.5 gm/dL 6.0-8.3 L SPEP (BEAKER) (test code = 2660) POCT-GLUCOSE [id number] 17:15:00 Test Item Value Reference Range Interpretation Comments POC-GLUCOSE METER 209 mg/dL 70-110 H TESTED AT [facility] 6720 (BEAKER) (test code = [place] 1538) [address] BLOOD GAS, [id number] 15:54:00 Test Item Value Reference Range Interpretation [...] 36.0 % RAD, CHEST, 1 VIEW, NON [id number] 14:07:00Reason for exam:->SOB, hypoxemiaShould this be performed [...] Regan Cespedes Verified Date/Time: 05/19/2017 14:07:07 Reading Location:[facility] C013W Consult Reading Room POCT-GLUCOSE [id number] 11:26:00 Test Item Value Reference Range Interpretation Comments POC-GLUCOSE METER 262 mg/dL 70-110 H TESTED AT [place] [address] [facility] (test code = [facility] 1538) [address] POCT-GLUCOSE [id number] 07:37:00 Test Item Value Reference Range Interpretation Comments POC-GLUCOSE METER 170 mg/dL 70-110 H TESTED AT [facility] 6720 ([facility] (test code = [facility] 1538) [address] CALCIUM, [id number] 06:06:00 Test Item Value Reference Range Interpretation Comments CALCIUM IONIZED (BEAKER) (test 1.05 mmol/L 1.12-1.27 L code = 698) PH, BLOOD (BEAKER) (test code = 7.41 1810) [id number] 05:38:00 Test Item Value Reference Range Interpretation Comments PHOSPHORUS (BEAKER) (test code = 3.9 mg/dL 2.3-4.7 604) [id number] 05:38:00 Test Item Value Reference Range Interpretation Comments MAGNESIUM (BEAKER) (test code = 2.2 mg/dL 1.6-2.6 627) BASIC METABOLIC [id number] 05:38:00 Test Item Value Reference Range Interpretation [...] PATIEN TS. CBC W/PLT COUNT & AUTO [id number] 05:09:00 Test Item Value Reference Range Interpretation [...] PERCENT (BEAKER) (test code = 2801) POCT-GLUCOSE [id number] 22:08:00 Test Item Value Reference Range Interpretation Comments POC-GLUCOSE METER 263 mg/dL 70-110 H TESTED AT [place] [address] [facility] (test code = J[place]IANO [place]borne [place] 1538) [address] POCT-GLUCOSE [id number] 17:20:00 Test Item Value Reference Range Interpretation Comments POC-GLUCOSE METER 233 mg/dL 70-110 H TESTED AT [place] [address] ([facility] (test code = JULIANO [place]borne [place] 1538) [address] POCT-GLUCOSE [id number] 08:28:00 Test Item Value Reference Range Interpretation Comments POC-GLUCOSE METER 154 mg/dL 70-110 H TESTED AT [place] [address] (BEAKER) (test code = [place] 1538) [address] BASIC METABOLIC [id number] 06:41:00 Test Item Value Reference Range Interpretation [...] S NOT APPLICABLE FOR DIALYSIS PATIEN TS. [id number] 06:35:00 Test Item Value Reference Range Interpretation Comments PHOSPHORUS (BEAKER) (test code = 4.1 mg/dL 2.3-4.7 604) [id number] 06:35:00 Test Item Value Reference Range Interpretation Comments MAGNESIUM (BEAKER) (test code = 2.1 mg/dL 1.6-2.6 627) CALCIUM, [id number] 06:22:00 Test Item Value Reference Range Interpretation Comments CALCIUM IONIZED (BEAKER) (test 1.10 mmol/L 1.12-1.27 L code = 698) PH, BLOOD (BEAKER) (test code = 7.38 1810) CBC W/PLT COUNT & AUTO [id number] 06:04:00 Test Item Value Reference Range Interpretation [...] PERCENT (BEAKER) (test code = 2801) POCT-GLUCOSE [id number] 03:44:00 Test Item Value Reference Range Interpretation Comments POC-GLUCOSE METER 220 mg/dL 70-110 H TESTED AT [facility] 6720 (BEAKER) (test code = [facility] 1538) [address] POCT-GLUCOSE [id number] 18:27:00 Test Item Value Reference Range Interpretation Comments POC-GLUCOSE METER 256 mg/dL 70-110 H TESTED AT [place] [address] ([facility]) (test code = [facility] 1538) [address] POCT-GLUCOSE [id number] 15:45:00 Test Item Value Reference Range Interpretation Comments POC-GLUCOSE METER 278 mg/dL 70-110 H TESTED AT [place] [address] ([facility]) (test code = [facility] 1538) [address] POCT-GLUCOSE [id number] 13:22:00 Test Item Value Reference Range Interpretation Comments POC-GLUCOSE METER 278 mg/dL 70-110 H TESTED AT [place] [address] ([facility]) (test code = [facility] 1538) [address] PLATELET AGGREGATION: FUNCTION [id number] 13:18:00 Test Item Value Reference Range Interpretation Comments WEAK ADP 66 % 60-91 RESULT([facility]) (test code = 2135) PLATELET FUNCTION 60-100% indicates SCREEN INTERP ([facility]) normal platelet (test code = 2173) function [id number] Rigoberto Duenas MD ([facility]) (test code = (electronic signature) 4053) PLATELET COUNT AGG 204 K/CU MM 150-450 ([facility]) (test code = 2656) POCT-GLUCOSE [id number] 08:27:00 Test Item Value Reference Range Interpretation Comments POC-GLUCOSE METER 189 mg/dL 70-110 H TESTED AT [place] [address] ([facility]) (test code = [facility] 1538) [address] CALCIUM, [id number] 06:12:00 Test Item Value Reference Range Interpretation Comments CALCIUM IONIZED ([facility]) (test 1.07 mmol/L 1.12-1.27 L code = 698) PH, BLOOD ([facility]) (test code = 7.36 1810) [id number] 05:43:00 Test Item Value Reference Range Interpretation Comments PHOSPHORUS (BEAKER) (test code = 3.6 mg/dL 2.3-4.7 604) [id number] 05:43:00 Test Item Value Reference Range Interpretation Comments MAGNESIUM (BEAKER) (test code = 2.1 mg/dL 1.6-2.6 627) BASIC METABOLIC [id number] 05:43:00 Test Item Value Reference Range Interpretation [...] PATIEN TS. CBC W/PLT COUNT & AUTO [id number] 05:05:00 Test Item Value Reference Range Interpretation [...] PERCENT (BEAKER) (test code = 2801) POCT-GLUCOSE [id number] 21:32:00 Test Item Value Reference Range Interpretation Comments POC-GLUCOSE METER 176 mg/dL 70-110 H TESTED AT [place] [address] ([facility] (test code = [place]O [place] 1538) [address] POCT-GLUCOSE [id number] 20:27:00 Test Item Value Reference Range Interpretation Comments POC-GLUCOSE METER 161 mg/dL 70-110 H TESTED AT [place] [address] ([facility] (test code = [place]O [place] 1538) [address] POCT-GLUCOSE [id number] 18:23:00 Test Item Value Reference Range Interpretation Comments POC-GLUCOSE METER 185 mg/dL 70-110 H TESTED AT [place] [address] ([facility]) (test code = [place] 1538) [address] POCT-GLUCOSE [id number] 13:26:00 Test Item Value Reference Range Interpretation Comments POC-GLUCOSE METER 282 mg/dL 70-110 H TESTED AT [facility] 6720 (BEAKER) (test code = [place]O [place] 1538) [address] URINE [id number] 10:12:00 Test Item Value Reference Range Interpretation Comments CULTURE (BEAKER) (test >100,000 col/mL skin code = 1095) todd POCT-GLUCOSE [id number] 09:01:00 Test Item Value Reference Range Interpretation Comments POC-GLUCOSE METER 268 mg/dL 70-110 H TESTED AT [facility] 6720 (BEAKER) (test code = [place]O [place] 1538) [address] CALCIUM, [id number] 05:39:00 Test Item Value Reference Range Interpretation Comments CALCIUM IONIZED (BEAKER) (test 0.84 mmol/L 1.12-1.27 L code = 698) PH, BLOOD (BEAKER) (test code = 7.35 1810) BASIC METABOLIC [id number] 05:07:00 Test Item Value Reference Range Interpretation [...] S NOT APPLICABLE FOR DIALYSIS PATIEN TS. [id number] 05:06:00 Test Item Value Reference Range Interpretation Comments PHOSPHORUS (BEAKER) (test code = 3.2 mg/dL 2.3-4.7 604) [id number] 05:06:00 Test Item Value Reference Range Interpretation Comments MAGNESIUM (BEAKER) (test code = 2.3 mg/dL 1.6-2.6 627) CBC W/PLT COUNT & AUTO [id number] 04:42:00 Test Item Value Reference Range Interpretation [...] EOSINOPHILS ABSOLUTE COUNT 0.21 K/ L 0.04-0.36 (ROBERT) (test code = 416) BASOPHILS ABSOLUTE COUNT (ROBERT) 0.07 K/ L 0.01-0.08 (test code = 417) IMMATURE GRANULOCYTES-RELATIVE 0 % 0-1 PERCENT (ROBERT) (test code = 2801) RHEUMATOID FACTOR AB, REFLEX TO [id number] 01:52:00 Test Item Value Reference Range Interpretation Comments RHEUMATOID FACTOR (ROBERT) (test Negative code = 573) POCT-GLUCOSE [id number] 21:57:00 Test Item Value Reference Range Interpretation Comments POC-GLUCOSE METER 105 mg/dL 70-110 TESTED AT [facility] 6720 (ROBERT) (test code = JULIANO [place]borne [place] [id number]) [address] POCT-GLUCOSE [id number] 18:11:00 Test Item Value Reference Range Interpretation Comments POC-GLUCOSE METER 312 mg/dL 70-110 H Notified Dylon Hassan MD/TESTED (ROBERT) (test code = AT [facility] [address] [place] [address]) [facility] 7703 0 PET, CARDIAC PERFUSION MULTIPLE STUDIES, REST AND [id number] 16:28:00 Reason for exam:->pvcs, known cadFINAL REPORT PROCEDURE: Rest/Stress MYOCARDIAL PERFUSION PET with regadenoson\\XA9\\ CPT CODE: 15724 INDICATION: Defined extent and severity of known [...] is 23%. LVEF at stress is 36%. 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 This is unchanged. Left lung is grossly clear. Cardiac silhouette is enlarged. IMPRESSION: 1. No acute cardiopulmonary disease. Signed: Sixto Monk MDReport Verified Date/Time: 05/15/2017 15:56:39 Reading Location: [facility] iology Reading Room POCT-GLUCOSE [id number] 12:54:00 Test Item Value Reference Range Interpretation Comments POC-GLUCOSE METER 308 mg/dL 70-110 H Notified R Geovanna PIERRE/TESTED (ROBERT) (test code = AT [facility] [address] [facility] 1538) [facility] 7703 0 U/S, RENAL WITH [id number] 11:04:00Reason for exam:->tracy, htnShould this be performed [...] Hobbs Verified Date/Time: 05/15/2017 11:04:01 Reading Location: [facility] [id number] Ultrasound Reading Room ANA TITER AND [id number] 10:57:00 Test Item Value Reference Range Interpretation Comments ROGER TITER (BEAKER) (test code = :160 1541) ROGER PATTERN (BEAKER) (test code = Speckled 1781) ANTI-NUCLEAR ANTIBODY (ROGER)2017-05-15 10:56:00 Test Item Value Reference Range Interpretation Comments ANTI-NUCLEAR ANTIBODY (ROGER) (BEAKER) Positive Negative A (test code = 418) CALCIUM, [id number] 06:00:00 Test Item Value Reference Range Interpretation Comments CALCIUM IONIZED (BEAKER) (test 1.07 mmol/L 1.12-1.27 L code = 698) PH, BLOOD (BEAKER) (test code = 7.28 1810) HEPATITIS PANEL, [id number] 05:01:00 Test Item Value Reference Range Interpretation Comments HEPATITIS A IGM ANTIBODY (BEAKER) Nonreactive Nonreactive (test code = 498) HEPATITIS B CORE IGM ANTIBODY Nonreactive Nonreactive (BEAKER) (test code = 645) HEPATITIS C ANTIBODY (BEAKER) Nonreactive Nonreactive (test code = 367) HEPATITIS B SURFACE ANTIGEN (2) Nonreactive Nonreactive (BEAKER) (test code = 2585) BASIC METABOLIC [id number] 04:48:00 Test Item Value Reference Range Interpretation [...] NOT APPLICABLE FOR DIALYSIS PATIEN TS. URIC [id number] 04:41:00 Test Item Value Reference Range Interpretation Comments URIC ACID (BEAKER) (test code = 10.3 mg/dL 2.6-7.2 H 773) [id number] 04:41:00 Test Item Value Reference Range Interpretation Comments MAGNESIUM (BEAKER) (test code = 2.0 mg/dL 1.6-2.6 627) [id number] 04:41:00 Test Item Value Reference Range Interpretation Comments PHOSPHORUS (BEAKER) (test code = 4.2 mg/dL 2.3-4.7 604) COMPLEMENT COMPONENT [id number] 04:38:00 Test Item Value Reference Range Interpretation Comments C4 COMPLEMENT (BEAKER) (test code = 28 mg/dL 15-57 394) COMPLEMENT COMPONENT [id number] 04:38:00 Test Item Value Reference Range Interpretation Comments C3 COMPLEMENT (BEAKER) (test code = 103 mg/dL 82-193 393) CBC W/PLT COUNT & AUTO [id number] 04:22:00 Test Item Value Reference Range Interpretation [...] PERCENT (BEAKER) (test code = 2801) POCT-GLUCOSE [id number] 21:46:00 Test Item Value Reference Range Interpretation Comments POC-GLUCOSE METER 173 mg/dL 70-110 H TESTED AT [facility] 6720 (BEAKER) (test code = JULIANO REYEZ 1538) [address] POCT-GLUCOSE [id number] 21:46:00 Test Item Value Reference Range Interpretation Comments POC-GLUCOSE METER 154 mg/dL 70-110 H TESTED AT [facility] 67 ([facility]) (test code = JULIANO Osborne [place] 1538) [address] POCT-GLUCOSE [id number] 18:17:00 Test Item Value Reference Range Interpretation Comments POC-GLUCOSE METER 175 mg/dL 70-110 H TESTED AT [place] [address] ([facility]) (test code = JULIANO Osborne [facility] 1538) [address] RAD, CHEST, 1 VIEW, NON [id number] 14:56:00Reason for exam:->SOBShould this be performed at the bedside?->YesFINAL REPORT INDICATION: SOB COMPARISON: May 13, 2017 TECHNIQUE: Chest radiograph, single view, portable technique. FINDINGS / IMPRESSION: Enlarged heart shadow, small rightpleural effusion, and pulmonary venous congestion, again demonstrated. No pneumothorax or consolidation. Osseous structures unremarkable. Signed: Thania Dwyer MDReport Verified Date/Time: 05/14/2017 14:56:58 Reading Location: [facility] Mammo Reading Room POCT-GLUCOSE [id number] 12:18:00 Test Item Value Reference Range Interpretation Comments POC-GLUCOSE METER 313 mg/dL 70-110 H TESTED AT [facility] 67 ([facility]) (test code = JULIANO Osborne [facility] 1538) [address] HIV-1 ANTIGEN WITH HIV-1/2 [id number] 12:07:00 Test Item Value Reference Range Interpretation Comments HIV-1 ANTIGEN WITH HIV 1\\T\\2 Nonreactive Nonreactive ANTIBODY (2) ([facility]) (test code = 2586) CALCIUM, [id number] 06:37:00 Test Item Value Reference Range Interpretation Comments CALCIUM IONIZED (BEAKER) (test 1.08 mmol/L 1.12-1.27 L code = 698) PH, BLOOD ([facility]) (test code = 7.25 1810) BASIC METABOLIC [id number] 06:26:00 Test Item Value Reference Range Interpretation [...] pg/mL 0-100 H (test code = 700) [id number] 06:25:00 Test Item Value Reference Range Interpretation Comments PHOSPHORUS (BEAKER) (test code = 5.7 mg/dL 2.3-4.7 H 604) [id number] 06:25:00 Test Item Value Reference Range Interpretation Comments MAGNESIUM (BEAKER) (test code = 1.5 mg/dL 1.6-2.6 L 627) CBC W/PLT COUNT & AUTO [id number] 06:07:00 Test Item Value Reference Range Interpretation [...] PERCENT (BEAKER) (test code = 2801) POCT-GLUCOSE [id number] 22:38:00 Test Item Value Reference Range Interpretation Comments POC-GLUCOSE METER 262 mg/dL 70-110 H TESTED AT [facility] 6720 (BEAKER) (test code = JULIANO REYEZ 1538) [address] PROTEIN, RANDOM [id number] 22:18:00 Test Item Value Reference Range Interpretation Comments PROTEIN, URINE (BEAKER) (test code 641 mg/dL 0-14 H = 1569) CREATININE, RANDOM [id number] 22:07:00 Test Item Value Reference Range Interpretation Comments CREATININE URINE (BEAKER) (test 124.9 mg/dL code = 375) Reference Range: No NormalsURINALYSIS W/ [id number] 22:03:00 Test Item Value Reference Range Interpretation [...] 1585) SOURCE(BEAKER) (test code = Urine, Voided 2653) [id number] 19:49:00 Test Item Value Reference Range Interpretation Comments SODIUM (BEAKER) (test 136 meq/L 136-145 code = 381) POTASSIUM (BEAKER) 5.1 meq/L 3.5-5.1 Specimen slightly (test code = 379) hemolyzed CHLORIDE (BEAKER) 104 meq/L 98-107 (test code = 382) CO2 (BEAKER) (test 25 meq/L 22-29 code = 355) Call if K > 5POCT-GLUCOSE [id number] 11:37:00 Test Item Value Reference Range Interpretation Comments POC-GLUCOSE METER 293 mg/dL 70-110 H TESTED AT [place] [address] ([facility]) (test code = JULIANO Obsorne [facility] 1538) [address] RAD, CHEST, 1 VIEW, NON [id number] 10:22:00Reason for exam:->SOBShould this be performed at the bedside?->YesFINAL REPORT Chest one view Discussion: There is cardiomegaly and interstitial congestion. A small right-sided effusion is noted. No pneumothorax. IMPRESSIONS: Suspected CHF. Signed: Jeannette Nava Verified Date/Time: 05/13/2017 10:22:34 Reading Location: [facility] Radiology Reading Room POCT-GLUCOSE METER 2017-05-13 08:34:00 Test Item Value Reference Range Interpretation Comments POC-GLUCOSE METER 178 mg/dL 70-110 H TESTED AT [place] [address] ([facility]) (test code = JULIANO Osborne [facility] 1538) [address] POCT-GLUCOSE [id number] 06:53:00 Test Item Value Reference Range Interpretation Comments POC-GLUCOSE METER 167 mg/dL 70-110 H TESTED AT [place] [address] ([facility]) (test code = JULIANO Osborne [facility] 1538) [address] [id number] 04:48:00 Test Item Value Reference Range Interpretation Comments BLOOD UREA NITROGEN (BEAKER) (test 36 mg/dL 7-21 H code = 354) [id number] 04:48:00 Test Item Value Reference Range Interpretation Comments SODIUM (BEAKER) (test code = 381) 139 meq/L 136-145 POTASSIUM (BEAKER) (test code = 5.2 meq/L 3.5-5.1 H 379) CHLORIDE (BEAKER) (test code = 382) 109 meq/L 98-107 H CO2 (BEAKER) (test code = 355) 23 meq/L 22-29 [id number] 04:48:00 Test Item Value Reference Range Interpretation [...] WBC 0-0 (BEAKER) (test code = 413) [id number] 23:29:00 Test Item Value Reference Range Interpretation Comments ACTIVATED CLOTTING TIME 136 sec TEST ED AT [place] [address] ([facility]) (test code = [place]IANO [place] [address]) [address] [id number] 20:13:00 Test Item Value Reference Range Interpretation Comments ACTIVATED CLOTTING TIME 175 sec TEST ED AT [place] [address] ([facility]) (test code = [place]IANO [place] 441) [address] [id number] 18:36:00 Test Item Value Reference Range Interpretation Comments ACTIVATED CLOTTING TIME 202 sec TEST ED AT [place] [address] [facility] (test code = JULIANO Osborne [place] [address]) [address] [id number] 18:03:00 Test Item Value Reference Range Interpretation Comments ACTIVATED CLOTTING TIME 208 sec TEST ED AT [facility] 6720 ([facility] (test code = JULIANO Osborne [facility] 441) [address] BASIC METABOLIC [id number] 11:57:00 Test Item Value Reference Range Interpretation [...] NOT APPLICABLE FOR DIALYSIS PATIEN TS. PROTHROMBIN [id number] 11:15:00 Test Item Value Reference Range Interpretation [...] if on CoumadinCBC W/PLT COUNT & AUTO [id number] 11:01:00 Test Item Value Reference Range Interpretation [...] PERCENT (BEAKER) (test code = 2801) POCT-GLUCOSE [id number] 12:35:00 Test Item Value Reference Range Interpretation Comments POC-GLUCOSE METER 249 mg/dL 70-110 H TESTED AT [facility] 6720 (BEAKER) (test code = [facility] [place] [facility] 1538) [address] POCT-GLUCOSE [id number] 09:10:00 Test Item Value Reference Range Interpretation Comments POC-GLUCOSE METER 155 mg/dL 70-110 H TESTED AT [facility] 6720 (BEAKER) (test code = [facility] [place] [facility] 1538) [address] BASIC METABOLIC [id number] 05:39:00 Test Item Value Reference Range Interpretation [...] S NOT APPLICABLE FOR DIALYSIS PATIEN TS. [id number] 05:27:00 Test Item Value Reference Range Interpretation Comments PHOSPHORUS (BEAKER) (test code = 5.0 mg/dL 2.3-4.7 H 604) [id number] 05:27:00 Test Item Value Reference Range Interpretation Comments MAGNESIUM (BEAKER) (test code = 1.6 mg/dL 1.6-2.6 627) POCT-GLUCOSE [id number] 05:25:00 Test Item Value Reference Range Interpretation Comments POC-GLUCOSE METER 144 mg/dL 70-110 H TESTED AT [facility] 6720 (BEAKER) (test code = [facility] 1538) [address] PROTHROMBIN [id number] 04:58:00 Test Item Value Reference Range Interpretation Comments PROTIME ([facility]) (test code = 14.2 seconds 11.7-14.7 759) INR ([facility]) (test code = 370) 1.1 <=5.9 RECOMMENDED COUMADIN/WARFARIN INR THERAPY RANGESSTANDARD DOSE: 2.0 - 3.0 Includes: PROPHYLAXIS forvenous thrombosis, systemic embolization; TREATMENT for venous thrombosis and/or pulmonary embolus.HIGH RISK: Target INR is 2.5-3.5 for patients with mechanical heart valves.POCT-GLUCOSE [id number] 23:55:00 Test Item Value Reference Range Interpretation Comments POC-GLUCOSE METER 86 mg/dL 70-110 TESTED AT [place] [address] ([facility]) (test [facility] = [facility] [address] 1538) B-TYPE NATRIURETIC FACTOR (BNP)2017-04-22 18:13:00 Test Item Value Reference Range Interpretation Comments B-TYPE NATRIURETIC PEPTIDE 1203 pg/mL 0-100 H ([facility]) (test code = 700) POCT-GLUCOSE [id number] 17:36:00 Test Item Value Reference Range Interpretation Comments POC-GLUCOSE METER 259 mg/dL 70-110 H TESTED AT [place] [address] ([facility]) (test code = [facility] [place] [facility] 1538) [address] HEMOGLOBIN [id number] 14:24:00 Test Item Value Reference Range Interpretation Comments HEMOGLOBIN A1C ([facility]) (test code = 10.5 % 4.3-6.1 H 368) POCT-GLUCOSE [id number] 12:34:00 Test Item Value Reference Range Interpretation Comments POC-GLUCOSE METER 207 mg/dL 70-110 H TESTED AT [place] [address] ([facility]) (test code = [facility] [place] [facility] 1538) [address] [id number] 07:53:00 Test Item Value Reference Range Interpretation Comments PHOSPHORUS ([facility]) (test code = 3.9 mg/dL 2.3-4.7 604) [id number] 07:53:00 Test Item Value Reference Range Interpretation Comments MAGNESIUM ([facility]) (test code = 1.6 mg/dL 1.6-2.6 627) BASIC METABOLIC [id number] 07:53:00 Test Item Value Reference Range Interpretation [...] NOT APPLICABLE FOR DIALYSIS PATIEN TS. TROPONIN [id number] 07:29:00 Test Item Value Reference Range Interpretation [...] acidosis, acute neurological disease, and persistent tachyarrhythmia.PROTHROMBIN [id number] 07:01:00 Test Item Value Reference Range Interpretation Comments PROTIME (BEAKER) (test code = 13.8 seconds 11.7-14.7 759) INR (BEAKER) (test code = 370) 1.1 <=5.9 RECOMMENDED COUMADIN/WARFARIN INR THERAPY RANGESSTANDARD DOSE: 2.0 - 3.0 Includes: PROPHYLAXIS forvenous thrombosis, systemic embolization; TREATMENT for venous thrombosis and/or pulmonary embolus.HIGH RISK: Target INR is 2.5-3.5 for patients with mechanical heart valves.POCT-GLUCOSE [id number] 06:28:00 Test Item Value Reference Range Interpretation Comments POC-GLUCOSE METER 198 mg/dL 70-110 H TESTED AT [place] [address] ([facility]) (test code = JULIANO Osborne [facility] 1538) [address] CREATINE KINASE (CK), TOTAL AND [id number] 00:49:00 Test Item Value Reference Range Interpretation Comments CREATINE KINASE TOTAL ([facility]) 69 U/L 29-200 (test code = 380) CREATINE KINASE-MB ([facility]) (test 4.3 ng/mL 0.0-6.6 code = 750) CREATINE KINASE-MB INDEX ([facility]) 6.2 % (test code = 395) CK-MB Reference Range:<6.7 Normal6.7-10.0 Borderline>10.0 AbnormalTROPONIN [id number] 00:49:00 Test Item Value Reference Range Interpretation Comments TROPONIN I ([facility]) (test code = 0.05 ng/mL 0.00-0.03 H [...] acidosis, acute neurological disease, and persistent tachyarrhythmia.POCT-GLUCOSE [id number] 20:44:00 Test Item Value Reference Range Interpretation Comments POC-GLUCOSE METER 269 mg/dL 70-110 H TESTED AT [place] [address] ([facility]) (test code = [facility] [place] [facility] 1538) [address]
[2020-01-23] MEDS ORDERED: LIDOCAINE 1% W/EPI 1:100,000 MDV 20 ML VIAL ONE (01:06)
[2020-01-23] MEDS ORDERED: FENTANYL CITR 100 MCG/2 ML ONE (01:26)
[2020-01-23] MEDS ORDERED: ONDANSETRON 4 MG/2 ML VIAL ONE ×2 (01:26→01:55)
[2020-01-23 01:27] LABS: Absolute Lymphocytes (CBC) 2.1 K/uL (0.7-4.9); Hematocrit 30.2 % (36.0-45.0); Lymphocytes % 30.7 % (15.3-44.8); MPV 7.6 fL (7.6-11.3); RBC Red Blood Cell Count 3.29 M/uL (3.86-4.86)
[2020-01-23 01:30] LABS: Protime INR 1.16
[2020-01-23 01:59] LABS: Albumin 2.1 g/dL (3.4-5.0); Bilirubin Direct 0.2 mg/dL (0-0.2); Bilirubin Total 0.4 mg/dL (0.2-1.0); Magnesium 2.1 mg/dL (1.8-2.4); Potassium 4.5 mmol/L (3.5-5.1); Protein, Total 7.4 g/dL (6.4-8.2); Troponin (Emerg Dept Use Only) 0.05 ng/mL (0.0-0.045)
[2020-01-23] MEDS ORDERED: CEFAZOLIN/SWI 1gm 1 GM/10 ML SYR ONE (02:02)
--- NOTE | 2020-01-23 03:20 | EDPHYS ---
Physician Documentation [facility] Name: Christy Priest Age: 64 yrs Sex: Female : 1955 Arrival Date: 01/23/2020 Time: 00:36 Bed 17 Private MD: ED Physician Alessio Parry HPI: 01/22 01:06 This 64 yrs old Female presents to ER via Unassigned with complaints of Fall carlos Injury. 01:06 Details of fall: The patient fell from an upright position, while standing, while carlos walking. Onset: The symptoms/episode began/occurred just prior to arrival. Associated injuries: The patient sustained injury to the head, left femoral area and left hip, decreased range of motion, painful injury. Severity of symptoms: At their worst the symptoms were moderate, in the emergency department the symptoms are unchanged. The patient has experienced similar episodes in the past, several times. Historical: - Allergies: 01:00 Augmentin; 01:00 basil; 01:00 Clindamycin; 01:00 Morphine; 01:00 Nitroglycerin; 01:00 Tramadol HCl; 01:00 Trazodone; 01:00 Vancomycin; 01:00 Vicodin; wh - Home Meds: 01:00 gabapentin Oral [Active]; Hydralazine Oral [Active]; insulin [Active]; Lasix Oral wh [Active]; Plavix Oral [Active]; - PMHx: 01:00 CHF; COPD; Diabetes - IDDM; ESRD; High Cholesterol; Hypertension; triple bypass; wh uterine cancer; ADD/ADHD; - Immunization history:: Adult Immunizations unknown. - Immunization history: Last tetanus immunization: unknown. - Social history:: Smoking status: Patient/guardian denies using. - Family history:: not pertinent. ROS: 01:06 Constitutional: Negative for fever, chills, and weight loss, Eyes: Negative for injury, carlos pain, redness, and discharge, ENT: Negative for injury, pain, and discharge, Cardiovascular: Negative for chest pain, palpitations, and edema, Respiratory: Negative for shortness of breath, cough, wheezing, and pleuritic chest pain, Abdomen/GI: Negative for abdominal pain, nausea, vomiting, diarrhea, and constipation, Back: Negative for injury and pain, : Negative for injury, bleeding, discharge, and swelling, Neuro: Negative for headache, weakness, numbness, tingling, and seizure, Psych: Negative for depression, anxiety, suicide ideation, homicidal ideation, and hallucinations, Allergy/Immunology: Negative for hives, rash, and allergies, Endocrine: Negative for neck swelling, polydipsia, polyuria, polyphagia, and marked weight changes. 01:06 Neck: Positive for pain with movement, pain at rest. 01:06 MS/extremity: Positive for decreased range of motion, pain, tenderness, of the left femoral area and left hip. 01:06 Skin: Positive for laceration(s), of the left parietal area and left side of the back of head, left forearm skin tear. Exam: 01:06 Constitutional: This is a well developed, well nourished patient who is awake, alert, carlos and in no acute distress. Head/Face: Normocephalic, atraumatic. Eyes: Pupils equal round and reactive to light, extra-ocular motions intact. Lids and lashes normal. Conjunctiva and sclera are non-icteric and not injected. Cornea within normal limits. Periorbital areas with no swelling, redness, or edema. ENT: Nares patent. No nasal discharge, no septal abnormalities noted. Tympanic membranes are normal and external auditory canals are clear. Oropharynx with no redness, swelling, or masses, exudates, or evidence of obstruction, uvula midline. Mucous membranes moist. Neck: Trachea midline, no thyromegaly or masses palpated, and no cervical lymphadenopathy. Supple, full range of motion without nuchal rigidity, or vertebral point tenderness. No Meningismus. Chest/axilla: Normal chest wall appearance and motion. Nontender with no deformity. No lesions are appreciated. Cardiovascular: Regular rate and rhythm with a normal S1 and S2. No gallops, murmurs, or rubs. Normal PMI, no JVD. No pulse deficits. Respiratory: Lungs have equal breath sounds bilaterally, clear to auscultation and percussion. No rales, rhonchi or wheezes noted. No increased work of breathing, no retractions or nasal flaring. Abdomen/GI: Soft, non-tender, with normal bowel sounds. No distension or tympany. No guarding or rebound. No evidence of tenderness throughout. Back: No spinal tenderness. No costovertebral tenderness. Full range of motion. Neuro: Awake and alert, GCS 15, oriented to person, place, time, and situation. Cranial nerves II-XII grossly intact. Motor strength 5/5 in all extremities. Sensory grossly intact. Cerebellar exam normal. Normal gait. Psych: Awake, alert, with orientation to person, place and time. Behavior, mood, and affect are within normal limits. 01:06 Skin: injury, avulsion(s), A moderate sized of the dorsal aspect of left forearm, laceration(s), the wound is approximately 3 cm(s), with a depth of .5 cm(s), of the left side of the back of head and left parietal area. 02:12 ECG was reviewed by the Attending Physician. [facility] Vital Signs: 00:45 BP 187 / 95; Pulse 76; Resp 18; Temp 97.7(O); Pulse Ox 100% 2 lpm ; Weight 75 kg; Height 5 ft. 7 in. (170.18 cm); 02:39 BP 181 / 90; Pulse 74; Resp 16; Pulse Ox 100% on 2 lpm NC; 03:03 BP 158 / 94; Pulse 73; Resp 16; Pulse Ox 100% on 2 lpm NC; 04:00 BP 181 / 95; Pulse 71; Resp 16; Pulse Ox 100% on R/A; jb4 00:45 Body Mass Index 25.90 (75.00 kg, 170.18 cm) [place] Coma Score: 00:45 Eye Response: spontaneous(4). Verbal Response: oriented(5). Motor Response: obeys wh commands(6). Total: 15. 04:00 Eye Response: spontaneous(4). Verbal Response: oriented(5). Motor Response: obeys jb4 commands(6). Total: 15. Trauma Score (Adult): 00:45 Eye Response: spontaneous(1); Verbal Response: oriented(1); Motor Response: obeys wh commands(2); Systolic BP: > 89 mm Hg(4); Respiratory Rate: 10 to 29 per min(4); [place] Score: 15; Trauma Score: 12 04:00 Eye Response: spontaneous(1); Verbal Response: oriented(1); Motor Response: obeys jb4 commands(2); Systolic BP: > 89 mm Hg(4); Respiratory Rate: 10 to 29 per min(4); [place] Score: 15; Trauma Score: 12 Laceration: 01:40 Wound Repair of 3.5cm ( 1.4in ) subcutaneous laceration to left side of the back of [facility] head and left parietal area. Irregularly shaped.. Minimal bleeding noted.. Distal neuro/vascular/tendon intact. Anesthesia: Local anesthetic administered with 8 mls of 1% lidocaine w/ Epi. Wound prep: Moderate cleansing with betadine by me. Skin closed with 6 1-0 Faye using staple gun. Dressed with Neosporin. Patient tolerated well. MDM: 00:43 Patient medically screened. [facility] 01:13 Differential diagnosis: abrasion, closed head injury, laceration, multiple trauma. Data [facility] reviewed: vital signs, nurses notes, lab test result(s), EKG, radiologic studies, CT scan, plain films. Data interpreted: brazing machine tender: rate is 86 beats/min, rhythm is regular, Pulse oximetry: on room air is 96 %. Test interpretation: by ED physician or midlevel provider: ECG, plain radiologic studies. Counseling: I had a detailed discussion with the patient and/or guardian regarding: the historical points, exam findings, and any diagnostic results supporting the discharge/admit diagnosis, lab results, radiology results, the need for further work-up and treatment in the hospital. 01/22 00:54 Order name: Basic Metabolic Panel; Complete Time: 02: 01/22 00:54 Order name: CBC with Diff; Complete Time: 02: 01/22 00:54 Order name: LFT's; Complete Time: 02: 01/22 00:54 Order name: Magnesium; Complete Time: 02: 01/22 00:54 Order name: NT PRO-BNP; Complete Time: 02: 01/22 00:54 Order name: PT-INR; Complete Time: 02: 01/22 00:54 Order name: Troponin (emerg Dept Use Only); Complete Time: 02: 01/22 00:54 Order name: XRAY Chest (1 view) 01/22 00:58 Order name: CT Traumagram (Head C Spine CAP wo con) 01/22 00:58 Order name: XRAY Hip LEFT 2 view 01/22 00:58 Order name: XRAY Femur LEFT 01/22 01:12 Order name: Urine Culture [facility] 01/22 00:54 Order name: EKG; Complete Time: : 01/22 00:54 Order name: Cardiac monitoring; Complete Time: 01/22 00:54 Order name: EKG - Nurse/Tech; Complete Time: : 01/22 00:54 Order name: IV Saline Lock; Complete Time: : 01/22 00:54 Order name: Labs collected and sent; Complete Time: 01/22 00:54 Order name: O2 Per Protocol; Complete Time: : 01/22 00:54 Order name: O2 Sat Monitoring; Complete Time: : 01/22 01:06 Order name: Dressing - Wound; Complete Time: [facility] 01/22 01:06 Order name: Gloves, Sterile; Complete Time: [facility] 01/22 01:13 Order name: Pelvis XRAY [facility] 01/22 01:06 Order name: Setup Suture Tray; Complete Time: [facility] 01/22 01:12 Order name: Misc. Order: clean everything; Complete Time: [facility] EC:12 Rate is 78 beats/min. Rhythm is regular. QRS [place] is Normal. AR interval is normal. QRS carlos interval is normal. No Q waves. T waves are Normal. No ST changes noted. Clinical impression: NSR w/ Non-specific ST/T Changes and No evidence of ischemia. Interpreted by me. Reviewed by me. Administered Medications: 00:50 Drug: Lidocaine-Epinephrine -1%: (1:100,000) 8 ml {Note: Administered by ER provider..} jb4 Volume: 20 ml; Route: Infiltration; 01:13 Drug: fentaNYL (PF) 25 mcg Route: IVP; Site: right antecubital; wh 01:15 Drug: Zofran (Ondansetron) 4 mg Route: IVP; Site: right antecubital; wh 01:51 Drug: Zofran (Ondansetron) 4 mg Route: IVP; Site: right antecubital; wh 02:38 Drug: Ancef 1 grams Route: IVPB; Site: right antecubital; 03:13 Drug: fentaNYL (PF) 25 mcg {Note: RASS 0.} Route: IVP; Site: right antecubital; wh Disposition: 10/25/20 03:19 Hospitalization ordered by Prince Simi for Inpatient Admission. Preliminary diagnosis are Fall due to bumping against object, Weakness, Anemia, unspecified, End stage renal disease - on HD t,th, sat, Pleural effusion in conditions classified elsewhere - small left, moderate right, Systolic (congestive) heart failure, Laceration without foreign body of other part of head - left posterior scalp, 3 cm. - Bed requested for Telemetry/MedSurg (Inpatient). - Status is Inpatient Admission. mw2 - Condition is Fair. - Problem is new. - Symptoms have improved. Signatures: Dispatcher [employer] EDMN Susan Au RN RN mw Anderson, Corey, MD MD cha Bryson, James RN RN jbNicholas Moss Margarita Stanton mw2 Corrections: (The following items were deleted from the chart) 02:18 01:11 Chest Abdomen Pelvis Wo Con+CT.RAD.BRZ ordered. EDMN EDMN 04:15 03:19 Hospitalization Ordered by Prince Simi PIERRE for Inpatient Admission. Preliminary mw diagnosis is Fall due to bumping against object; Weakness; Anemia, unspecified; End stage renal disease - on HD t,th, sat; Pleural effusion in conditions classified elsewhere - small left, moderate right; Systolic (congestive) heart failure; Laceration without foreign body of other part of head - left posterior scalp, 3 cm. Bed requested for Telemetry/MedSurg (Inpatient). Status is Inpatient Admission. Condition is Fair. Problem is new. Symptoms have improved. [facility] 04:53 04:15 01/23/2020 03:19 Hospitalization Ordered by Prince Simi PIERRE for Inpatient mw2 Admission. Preliminary diagnosis is Fall due to bumping against object; Weakness; Anemia, unspecified; End stage renal disease - on HD t,th, sat; Pleural effusion in conditions classified elsewhere - small left, moderate right; Systolic (congestive) heart failure; Laceration without foreign body of other part of head - left posterior scalp, 3 cm. Bed requested for Telemetry/MedSurg (Inpatient). Status is Inpatient Admission. Condition is Fair. Problem is new. Symptoms have improved. mw
--- NOTE | 2020-01-23 03:20 | ER ---
Nurse's Notes [facility] Name: Christy Priest Age: 64 yrs Sex: Female : 1955 Arrival Date: 01/23/2020 Time: 00:36 Bed 17 Private MD: Diagnosis: Fall due to bumping against object;Weakness;Anemia, unspecified;End stage renal disease-on HD t,th, sat;Pleural effusion in conditions classified elsewhere-small left, moderate right;Systolic (congestive) heart failure;Laceration without foreign body of other part of head-left posterior scalp, 3 cm Presentation: 01/22 00:40 Chief complaint: EMS states: Pt fell from standing position. Pt states her feet gave wh out under her. Pt unsure if with LOC. Care prior to arrival: Oxygen administered. via nasal cannula. Mechanism of Injury: Fall from standing position. Trauma event details: Injury occurred in the county of. 00:40 Acuity: [place] 3 00:40 Method Of Arrival: EMS: [facility] 00:45 Coronavirus screen: Client denies travel out of the [place] in the last 14 days. At this wh time, the client does not indicate any symptoms associated with coronavirus-19. Ebola Screen: Patient negative for fever greater than or equal to 101.5 degrees Fahrenheit, and additional compatible Ebola Virus Disease symptoms Patient denies exposure to infectious person. Initial Sepsis Screen: Does the patient meet any 2 criteria? No. Patient's initial sepsis screen is negative. Does the patient have a suspected source of infection? Yes: Skin breakdown/wound. Risk Assessment: Do you want to hurt yourself or someone else? Patient reports no desire to harm self or others. Onset of symptoms was January 23, 2020. Trauma Activation: Stat Physician: ED Physician; Name: roge; Notified At: 00:40; Arrived At: 00:45 Physician: General Surgeon; Name: ; Notified At: 00:40; Arrived At: Physician: Radiology; Name: ; Notified At: 00:40; Arrived At: Physician: Respiratory; Name: ; Notified At: 00:40; Arrived At: Physician: Lab; Name: ; Notified At: 00:40; Arrived At: Historical: - Allergies: 01:00 Augmentin; 01:00 basil; 01:00 Clindamycin; 01:00 Morphine; 01:00 Nitroglycerin; 01:00 Tramadol HCl; 01:00 Trazodone; 01:00 Vancomycin; 01:00 Vicodin; wh - Home Meds: 01:00 gabapentin Oral [Active]; Hydralazine Oral [Active]; insulin [Active]; Lasix Oral wh [Active]; Plavix Oral [Active]; - PMHx: 01:00 CHF; COPD; Diabetes - IDDM; ESRD; High Cholesterol; Hypertension; triple bypass; wh uterine cancer; ADD/ADHD; - Immunization history:: Adult Immunizations unknown. - Immunization history: Last tetanus immunization: unknown. - Social history:: Smoking status: Patient/guardian denies using. - Family history:: not pertinent. Screenin:40 Abuse screen: Denies threats or abuse. Denies injuries from another. Nutritional wh screening: On renal diet. Tuberculosis screening: No symptoms or risk factors identified. Fall Risk Fall in past 12 months (25 points). Ambulatory Aid- Crutches/Cane/Walker (15 pts). Gait- Weak (10 pts.). Primary Survey: 00:40 NO uncontrolled hemorrhage observed. A: The patient is alert. Airway: patent. wh Breathing/Chest: Respiratory pattern: regular, Respiratory effort: spontaneous, unlabored, Breath sounds: diminished. Circulation: Cardiac rhythm: sinus rhythm with 1st degree heart block. Disability Alert. Exposure/Environment: All clothing and personal items were removed. Forensic evidence collection is not deemed to be indicated at this time. Items placed in patient belonging bag. There is no evidence of uncontrolled external bleeding. Obvious injury(ies) are noted at this time: Skin tear to left forearm, small skin tear on right knee, laceration on left parietal area A warming method has been applied: A warm blanket has been provided to the patient. 02:39 Reassessment Airway Airway Patent Oxygen Nasal cannula Breathing/Chest Respiratory wh pattern Regular Respiratory effort Spontaneous Unlabored Breath sounds Diminished Circulation Heart rhythm Sinus rhythm Disability Alert. Assessment: 00:50 General: Appears uncomfortable, unkempt, Behavior is cooperative. Pain: Complains of wh pain in left arm and dorsal aspect of left forearm and left parietal area and pelvis and left femoral area Pain currently is 8 out of 10 on a pain scale. Neuro: Level of Consciousness is awake, alert, obeys commands, Oriented to person, place, time, situation. Cardiovascular: Heart tones S1 S2 Rhythm is regular. Respiratory: Airway is patent Respiratory effort is even, unlabored, Respiratory pattern is regular, symmetrical, Breath sounds are diminished. GI: Abdomen is round distended, noted to have ascites. : No signs and/or symptoms were reported regarding the genitourinary system. EENT: No signs and/or symptoms were reported regarding the EENT system. Derm: Skin is fragile, is thin, has skin tears on left forearm, right forearm, right knee Decubitus located on sacrum is stage II. Musculoskeletal: Swelling present in right leg and left leg. 01:51 Reassessment: Pt vomiting in CT, C/O nausea, notified MD with orders made and carried wh out. 02:38 Reassessment: Patient appears in no apparent distress at this time. No changes from previously documented assessment. Patient and/or family updated on plan of care and expected duration. Pain level reassessed. Patient is alert, oriented x 3, equal unlabored respirations, skin warm/dry/pink. Pt back from CT Scan family at bedside. 03:03 Reassessment: Pt skin tear cleaned and dressed. 03:06 Reassessment: Patient appears in no apparent distress at this time. Patient and/or jb4 family updated on plan of care and expected duration. Pain level reassessed. Patient is alert, oriented x 3, equal unlabored respirations, skin warm/dry/pink. Received report from GUILHERME Peterson. 04:06 Reassessment: Patient appears in no apparent distress at this time. Patient and/or jb4 family updated on plan of care and expected duration. Pain level reassessed. Patient is alert, oriented x 3, equal unlabored respirations, skin warm/dry/pink. Hospitalist at the bedside. Head wound rewrapped. Vital Signs: 00:45 BP 187 / 95; Pulse 76; Resp 18; Temp 97.7(O); Pulse Ox 100% 2 lpm ; Weight 75 kg; Height 5 ft. 7 in. (170.18 cm); 02:39 BP 181 / 90; Pulse 74; Resp 16; Pulse Ox 100% on 2 lpm NC; wh 03:03 BP 158 / 94; Pulse 73; Resp 16; Pulse Ox 100% on 2 lpm NC; wh 04:00 BP 181 / 95; Pulse 71; Resp 16; Pulse Ox 100% on R/A; jb4 00:45 Body Mass Index 25.90 (75.00 kg, 170.18 cm) [place] Coma Score: 00:45 Eye Response: spontaneous(4). Verbal Response: oriented(5). Motor Response: obeys wh commands(6). Total: 15. 04:00 Eye Response: spontaneous(4). Verbal Response: oriented(5). Motor Response: obeys jb4 commands(6). Total: 15. Trauma Score (Adult): 00:45 Eye Response: spontaneous(1); Verbal Response: oriented(1); Motor Response: obeys wh commands(2); Systolic BP: > 89 mm Hg(4); Respiratory Rate: 10 to 29 per min(4); [place] Score: 15; Trauma Score: 12 04:00 Eye Response: spontaneous(1); Verbal Response: oriented(1); Motor Response: obeys jb4 commands(2); Systolic BP: > 89 mm Hg(4); Respiratory Rate: 10 to 29 per min(4); [place] Score: 15; Trauma Score: 12 ED Course: 00:36 Patient arrived in ED. ag3 00:39 Nicholas Bowers is Primary Nurse. wh 00:42 Alessio Parry MD is Attending Physician. carlos 00:50 Assist provider with laceration repair on left parietal area that was between 2.6 to wh 7.5 cm using sutures. Set up tray. Performed by Alessio Parry MD Dressed with Patient tolerated well. Oxygen administration via nasal cannula \T\ 3L/min. 00:50 Thermoregulation: warm blanket given to patient. 00:50 Arm band placed on right wrist. Patient placed in an exam room, on oxygen, on cardiac wh monitor, on pulse oximetry. EKG completed in triage. Results shown to MD. 00:50 Patient has correct armband on for positive identification. Placed in gown. Bed in low wh position. Call light in reach. Side rails up X 1. monitor car operator on. Pulse ox on. NIBP on. 01:26 Triage completed. 02:16 CT Traumagram (Head C Spine CAP wo con) In Process Unspecified. EDMS 02:28 XRAY Chest (1 view) In Process Unspecified. EDMS 02:28 XRAY Hip LEFT 2 view In Process Unspecified. EDMS 02:28 XRAY Femur LEFT In Process Unspecified. EDMS 02:29 Pelvis XRAY In Process Unspecified. EDMS 03:16 Prince Belcher MD is Hospitalizing Provider. [facility] 03:19 Report given to Carmelo VANEGAS. 04:50 Patient admitted, IV remains in place. jb4 Administered Medications: 00:50 Drug: Lidocaine-Epinephrine -1%: (1:100,000) 8 ml {Note: Administered by ER provider..} jb4 Volume: 20 ml; Route: Infiltration; 01:13 Drug: fentaNYL (PF) 25 mcg Route: IVP; Site: right antecubital; 01:15 Drug: Zofran (Ondansetron) 4 mg Route: IVP; Site: right antecubital; 01:51 Drug: Zofran (Ondansetron) 4 mg Route: IVP; Site: right antecubital; 02:38 Drug: Ancef 1 grams Route: IVPB; Site: right antecubital; 03:13 Drug: fentaNYL (PF) 25 mcg {Note: RASS 0.} Route: IVP; Site: right antecubital; Intake: 04:50 PO: 0ml; Total: 0ml. jb4 Output: 04:50 Urine: 0ml; Total: 0ml. jb4 Outcome: 03:19 Decision to Hospitalize by Provider. [facility] 04:50 Admitted to Med/surg accompanied by nurse, via wheelchair, room 216, with chart, Report jb4 called to GUILHERME Ferrer 04:50 Condition: stable 04:50 Discharge instructions given to patient, family, Instructed on the need for admit, Demonstrated understanding of instructions. 04:50 Patient's length of stay in the Emergency Department was greater than 2 hours. PT jb4 admitted.Patient's length of stay extended due to 04:53 Patient left the ED. mw2 Signatures: Dispatcher [employer] Alessio Milian MD MD cha Bryson, James, RN RN jb4 Nicholas Bowers Margarita Stanton mw2 Prema Patricia 3 Corrections: (The following items were deleted from the chart) 01:31 00:45 BP 187 / 95; Pulse 76bpm; Resp 18bpm; Pulse Ox 100% 2 lpm; wh wh 03:03 00:45 BP 187 / 95; Pulse 76bpm; Resp 18bpm; Pulse Ox 100% 2 lpm; 75 kg; Height 5 ft. 7 wh in.; BMI: 25.9; wh
--- NOTE | 2020-01-23 03:31 | P.HP ---
Certification for Inpatient Patient admitted to: Inpatient With expected LOS: >2 Midnights Practitioner: I am a practitioner with admitting privileges, knowledge of patient current condition, hospital course, and medical plan of care. Services: Services provided to patient in accordance with Admission requirements found in Title 42 Section 412.3 of the Code of Federal Regulations Patient History Date of Service: 01/23/20 Reason for admission: FALL and shortness of breath History of Present Illness: Patient is a 64 year old female with HTN, CAD S/P CABG, COPD on 2 L of O2 HS, ESRD on HD MWF. She was brought in to the ER via EMS after a witnessed traumatic fall. Patient is very frail with very limited mobility status. On the evening of admission, she was being moved by her son from her wheelchair to the bathroom. Patient was left to hold on to a rail as her son was adjusting her wheelchair. Her legs suddenly gave out and she fell. She suffered a scalp laceration. Denies any LOC. During our encounter, patient's mental status was at baseline. Daughter, who is also her caregiver, was at bedside. Patient reports feeling short of breath. She skipped her last 2 HD sessions. CXR was concerning for right sided pleural effusion. Allergies morphine Allergy (Severe, Verified 11/19/19 05:42) Anaphylaxis vancomycin Allergy (Intermediate, Verified 11/23/19 08:17) Shortness of breath basil Allergy (Verified 11/19/19 05:42) Nausea/Vomiting tramadol Allergy (Verified 11/19/19 05:42) Nausea/Vomiting trazodone Allergy (Verified 11/19/19 05:42) Nausea/Vomiting nitroglycerin Adverse Reaction (Mild, Verified 11/19/19 05:42) Nausea/Vomiting Home Medications: Atorvastatin Calcium [Lipitor] 40 mg PO BEDTIME 11/19/19 Bupropion HCl [Wellbutrin] 2 tab PO BID 11/19/19 Clopidogrel Bisulfate [Plavix*] 75 mg PO DAILY 11/19/19 Collagenase [Santyl Ointment*] 1 raquel TOP DAILY 11/19/19 Fluticasone [Flovent Hfa 110*] 2 puff PO BID 11/19/19 Gabapentin 300 mg PO TID 11/19/19 Insulin Detemir [Levemir Flextouch] 10 units SQ BID 11/19/19 Sertraline [Zoloft*] 25 mg PO DAILY 11/19/19 carvediloL [Coreg*] 12.5 mg PO BID 11/19/19 Ensure High Protein 237 ml PO BID 30 Days #60 can 12/02/19 Patrice [Patrice*] 1 pkt PO BID 30 Days #60 powd.pack 12/02/19 Levothyroxine [Synthroid*] 0.112 mg PO DAILYAC 30 Days #30 tab 12/02/19 Allopurinol 100 mg PO BID 12/06/19 Furosemide [Lasix*] 40 mg PO BID 12/06/19 Isosorbide Mononitrate [Isosorbide Mononitrate ER] 30 mg PO DAILY 12/06/19 NIFEdipine [Nifedipine ER] 60 mg PO DAILY 12/06/19 Hydralazine [Apresoline*] 50 mg PO TID #180 tab 01/11/20 - Past Medical/Surgical History Diabetic: Yes -: COPD -: Hypertension -: CAD, CABG x4 vessels (August 2017) -: Diabetes mellitus type 2, insulin-dependent -: Chronic combined systolic/diastolic CHF -: Uterine cancer status post hysterectomy -: Chronic renal disease, stage IV -: 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 Her son lives with her. She has 3 children. - Family History Brother -: Heart disease, Hypertension, Diabetes Notes: Father -: Heart disease, Cancer Notes: - Prostate surgery - Hemorrhage Mother -: GI disease Notes: Sister -: Heart disease Notes: - Respiratory failure - Social History Alcohol use: No CD- Drugs: No Caffeine use: Yes Physical Examination - Physical Exam General: Cooperative, Moderate distress HEENT: Other (scalp hematoma), EOMI Neck: Other ([place] J collar in place) Respiratory: Diminished, Other (Dimished breath sounds - R lung alaniz. No wheezing) Cardiovascular: Normal pulses, Regular rate/rhythm, Normal S1 S2 Gastrointestinal: No tenderness, Distended Musculoskeletal: No clubbing, No swelling, No contractures, Erythema Neurological: Normal speech, Sensation intact, Normal affect - Studies Laboratory Data (last 24 hrs) 01/23/20 01:15: PT 13.7 H, INR 1.16 01/23/20 01:15: WBC 6.7 D, Hgb 9.9 L, Hct 30.2 L D, Plt Count 216 D 01/23/20 01:15: Sodium 141, Potassium 4.5, BUN 61 H D, Creatinine 4.29 H D, Glucose 115 H, Magnesium 2.1, Total Bilirubin 0.4, AST 49 H, ALT 45, Alkaline Phosphatase 284 H Assessment and Plan - Problems (Diagnosis) (1) ESRD (end stage renal disease) on dialysis Current Visit: Yes Status: Acute (2) Anasarca Onset Date: 10/03/17 Current Visit: No Status: Acute (3) CAD (coronary artery disease) Onset Date: 10/03/17 Current Visit: No Status: Chronic Qualifiers: (4) COPD (chronic obstructive pulmonary disease) Onset Date: 02/04/17 Current Visit: No Status: Chronic Qualifiers: (5) Diabetes mellitus Onset Date: 10/03/17 Current Visit: No Status: Chronic Qualifiers: (6) GERD (gastroesophageal reflux disease) Onset Date: 10/03/17 Current Visit: No Status: Chronic Qualifiers: Esophagitis presence: without esophagitis Qualified Code(s): K21.9 - Gastro-esophageal reflux disease without esophagitis - Advance Directives Does patient have a Living Will: No Does patient have a Durable POA for Healthcare: No Physician Review Additional Text: Patient is a 64 year old female with a PMH of CAD S/P CABG, COPD, HTN and ESRD non-compliant with hemodialysis. She is admitted for pain control after presented following a witnessed traumatic fall that resulted in scalp laceration. The laceration was repaired by ER. She currently has a [place] J collar pending formal read of CT neck. Fall and head trauma Scalp laceration Acute pain GERD Pleural effusion ESRD non-compliant with HD CAD s/p CABG plan: Admit inpatient with telemetry Pain control Neuro q checks Follow up CT head/neck and spine Manage of [place] J collar will depend of CT findings PT/OT ordered. FAMILY AND PATIENT WOULD LIKE TO CONTINUE CURRENT LEVEL OF CARE. DECLINE ANY PLACEMENT OPTIONS Will give a dose of pantoprazole IV PRN duo nebs and supplemental O2 I consulted Nephrology given recently missed HD sessions I will also consult wound care for her lower extremityy wounds. She follows up with Dr. Nayak as outpatient.
[2020-01-23] MEDS ORDERED: PANTOPRAZOLE 40MG TABLET PO ONE (04:16)
[2020-01-23 05:18] VITALS: BMI 28.3
[2020-01-23] MEDS: HYDROMORPHONE HCL 1 MG/ML INJ IV PRN ×3 (06:27→21:16)
[2020-01-23] MEDS: ALBUTEROL 2.5 MG/3 ML NEB SOL NEB SCH ×3 (07:24→20:00)
[2020-01-23] MEDS: IPRATROPIUM BROM 0.5MG/2.5ML NEB SCH ×3 (07:24→20:00)
--- NOTE | 2020-01-23 09:32 | RAD REPORT ---
EXAM DESCRIPTION: RAD - Chest Single View - 01/23/2020 2:28 am CLINICAL HISTORY: TRAUMA, fall, chest pain COMPARISON: January 09 TECHNIQUE: AP portable chest image was obtained 01/23/2020 2:28 am . FINDINGS: Lung volumes are similar to slightly increased from the prior study. Interstitial markings of the left lung field have diminished and there is no left-side focal mass or consolidation. Sterno flavio wires are in place. Left-sided dialysis catheter remains in place. Interstitial opacification on the right is prominent but decreased slightly from comparison. Pleural and parenchymal opacification of the lower right lung field has not changed. Cardiomegaly remains. Central vasculature is prominent but slightly decreased from the prior study. No pneumothorax. No acute bony abnormality seen. No acute aortic findings suspected. IMPRESSION: No acute traumatic injury to the chest. Above detailed findings are similar or less prominent than seen on the January 09 imaging.
--- NOTE | 2020-01-23 09:33 | RAD REPORT ---
EXAM DESCRIPTION: RAD - Pelvis - 01/23/2020 2:28 am CLINICAL HISTORY: PAIN, trauma COMPARISON: Pelvis dated 03/16/2018 TECHNIQUE: AP imaging of the pelvis was obtained. FINDINGS: Exam is limited due to rotation and prominent soft tissues overlying the pelvis. Lower lumbar degenerative change matches comparison. No pelvic fracture identifiable. No dislocation of either femoral head. Dense arterial tree calcifications are present. Proximal left leg arterial st ent is in place. IMPRESSION: Limited pelvis examination showing no acute finding.
--- NOTE | 2020-01-23 09:34 | RAD REPORT ---
EXAM DESCRIPTION: RAD - Hip Left 2 View - 01/23/2020 2:28 am CLINICAL HISTORY: PAIN COMPARISON: Hip Left 2 View dated 02/11/2012 FINDINGS: AP and frogleg views of the left hip were obtained. There is no fracture or dislocation. No acute or destructive bony process seen. Femoral head maintai ns smooth rounded contour degenerative changes along the superior acetabular rim are similar to [place] rison. No joint effusion or periarticular acute finding. Detail is limited by the amount of overlying soft t issue. Dense arterial tree calcifications are present. There is a long length arterial stent in the proximal leg. IMPRESSION: Degenerative change at the left hip joint. No fracture, dislocation or other acute findi ng.
--- NOTE | 2020-01-23 09:35 | RAD REPORT ---
EXAM DESCRIPTION: RAD - Femur Left - 01/23/2020 2:28 am CLINICAL HISTORY: PAIN, trauma FINDINGS: No fracture is identified. There is no dislocation or periosteal reaction noted. No acute or suspicious bony finding. No air or foreign body in the soft tissues. Dense arterial tree calcific ations are present. Arterial stent is present from the femoral head level to the mid thigh. IMPRESSION: Negative left femur examination for acute finding.
--- NOTE | 2020-01-23 11:49 | P.PN ---
Date of Service: 01/23/20 Patient seen and examined. She is lying comfortably in bed. Not in distress. She is quite hypertensive. Plan: Per report patient has missed sessions of dialysis. Nephrology is consulted for dialysis. Pain management as needed. Continue Lasix. PT evaluation. Given multiple hospitalizations for falls would recommend [facility]. Continue other home medications. Resume insulin therapy for glucose control.
[2020-01-23] MEDS: CLOPIDOGREL 75 MG TABLET PO SCH (12:14)
[2020-01-23] MEDS: GABAPENTIN 100 MG CAP PO SCH ×2 (12:15→21:02)
[2020-01-23] MEDS: METOLAZONE 5 MG TABLET PO SCH ×2 (12:15→21:01)
[2020-01-23] MEDS: NIFEDIPINE XL 60 MG TABLET PO SCH (12:16)
[2020-01-23] MEDS: carvediloL 12.5 MG TAB PO SCH ×2 (12:16→21:02)
[2020-01-23] MEDS: HYDRALAZINE HCL 25 MG TABLET PO SCH ×3 (12:16→21:01)
[2020-01-23] MEDS: FUROSEMIDE 40 MG TABLET PO SCH ×2 (12:19→21:03)
--- NOTE | 2020-01-23 12:40 | P.CNS ---
Date of Consult: 01/23/20 Reason for Consult: ESRD , fluid overload Chief Complaint: FALL and shortness of breath History of Present Illness: a 64-year-old AA woman with past medical history of ESRD on HD MWF via tunneled catheter hypertension, diabetes mellitus, COPD, Ex smoker, , CAD S/P CABG, pt presented after witnessed traumatic fall pt had multiple admission for falls, refused NH placement , pt legs gave up , and she fell, No LOC she denied , nausea , vomiting , diarrhea or constipation pt last HD was 6 days ago Physical exam general: AAOX3, NAD , obese, Neck; Supple, No elevated JVD hear: RRR, normal S1,2 no murmur or rub Chest: decreased air entry to the bases Abdomen: Soft , Nt Extremities both leg dressed ESRD will cont HD MWF renal dose meds HTN elevated resume home meds Fluid overload HD tomorrow DM as per primary anemia of chronic disease will rsume epogen recurrent falls PT/OT might benifit from NH placement LE ulcer cont wound care Allergies morphine Allergy (Severe, Verified 11/19/19 05:42) Anaphylaxis vancomycin Allergy (Intermediate, Verified 11/23/19 08:17) Shortness of breath basil Allergy (Verified 11/19/19 05:42) Nausea/Vomiting tramadol Allergy (Verified 11/19/19 05:42) Nausea/Vomiting trazodone Allergy (Verified 11/19/19 05:42) Nausea/Vomiting nitroglycerin Adverse Reaction (Mild, Verified 11/19/19 05:42) Nausea/Vomiting Home Medications: Allopurinol 100 mg PO BID 01/23/20 Atorvastatin Calcium [Lipitor] 40 mg PO BEDTIME 01/23/20 Bupropion HCl [Bupropion Xl] 1 tab PO BID 01/23/20 Clopidogrel Bisulfate [Plavix*] 1 tab PO DAILY 01/23/20 Ensure High Protein 1 can PO DAILY 01/23/20 Fluticasone [Flovent Hfa 110*] 2 puff IN BID 01/23/20 Furosemide [Lasix] 40 mg PO BID 01/23/20 Gabapentin [Neurontin*] 1 tab PO TID 01/23/20 Hydralazine HCl [Apresoline] 50 mg PO TID 01/23/20 Insulin Detemir [Levemir Flextouch] 10 units SQ BID 01/23/20 Isosorbide Mononitrate [Isosorbide Mononitrate ER] 1 tab PO DAILY 01/23/20 Levothyroxine [Synthroid*] 1 tab PO DAILY 01/23/20 NIFEdipine [Nifedipine ER] 60 mg PO DAILY 01/23/20 Sertraline [Zoloft*] 25 mg PO DAILY 01/23/20 Silver Sulfadiazine [Ssd] 1 raquel TOP DAILY 01/23/20 carvediloL [Coreg] 12.5 mg PO BID 01/23/20 metOLazone [Metolazone] 5 mg PO BID 01/23/20 - Past Medical/Surgical History Diabetic: Yes -: COPD -: Hypertension -: CAD, CABG x4 vessels (August 2017) -: Diabetes mellitus type 2, insulin-dependent -: Chronic combined systolic/diastolic CHF -: Uterine cancer status post hysterectomy -: Chronic renal disease, stage IV -: TB as a child - 2017 -: Hyperlipidemia -: Iron deficiency anemia -: WEST -: Likely obstructive sleep apnea -: Rectal surgery -: Hysterectomy -: Cholecystectomy -: Gastric surgery -: Appendectomy -: CABG x4 vessel -: RLE Femoral popliteal bypass -: Left great toe amputation Psychosocial/ Personal History: The patient is a . Her son lives with her. She has 3 children. - Family History Brother Medical History: Heart disease, Hypertension Notes: Father Medical History: Heart disease, Cancer Notes: - Prostate surgery - Hemorrhage Mother Medical History: GI disease Notes: Sister Medical History: Heart disease Notes: - Respiratory failure - Social History Smoking Status: Current every day smoker Alcohol use: No CD- Drugs: No Caffeine use: Yes Place of Residence: Home Physical Examination Temp Pulse Resp BP Pulse Ox 96.9 F 68 16 177/84 H 100 01/23/20 08:00 01/23/20 12:19 01/23/20 08:00 01/23/20 12:19 01/23/20 08:00 Laboratory Data (last 24 hrs) 01/23/20 01:15: PT 13.7 H, INR 1.16 01/23/20 01:15: WBC 6.7 D, Hgb 9.9 L, Hct 30.2 L D, Plt Count 216 D 01/23/20 01:15: Sodium 141, Potassium 4.5, BUN 61 H D, Creatinine 4.29 H D, Glucose 115 H, Magnesium 2.1, Total Bilirubin 0.4, AST 49 H, ALT 45, Alkaline Phosphatase 284 H
[2020-01-23] MEDS ORDERED: EPOETIN 4,000 UNIT/ML VIAL IV SCH (12:45)
[2020-01-23] MEDS ORDERED: ONDANSETRON 4 MG/2 ML VIAL IV PRN (15:53)
[2020-01-23] MEDS ORDERED: HYDRALAZINE HCL 20 MG/ML VIAL IV PRN (16:45)
[2020-01-23] MEDS: BUDESONIDE 0.5 MG/2 ML NEB IH SCH (20:00)
[2020-01-23] MEDS ORDERED: FLUTICASONE 110 MCG/PUFF 12 GM INH IH SCH (21:00)
[2020-01-23] MEDS ORDERED: ATORVASTATIN 40 MG TAB PO SCH (21:00)
[2020-01-23] MEDS: BUPROPION HCL XL 150 MG TAB PO SCH (21:01)
[2020-01-23] MEDS: allopurinoL 100 MG TAB PO SCH (21:03)
[2020-01-23] MEDS: INSULIN GLARGINE 100 UNITS/ML SQ SCH (21:16)
[2020-01-24] MEDS: IPRATROPIUM BROM 0.5MG/2.5ML NEB SCH ×3 (01:30→14:00)
[2020-01-24] MEDS: ALBUTEROL 2.5 MG/3 ML NEB SOL NEB SCH ×3 (01:30→14:00)
[2020-01-24] MEDS: HYDROMORPHONE HCL 1 MG/ML INJ IV PRN ×4 (01:33→18:08)
[2020-01-24 02:37] VITALS: O2SAT 96
[2020-01-24 04:13] LABS: Absolute Lymphocytes (CBC) 1.3 K/uL (0.7-4.9); Basophils % 1.4 % (0-1.3); Hematocrit 25.1 % (36.0-45.0); Lymphocytes % 29.4 % (15.3-44.8); MPV 7.4 fL (7.6-11.3); RBC Red Blood Cell Count 2.74 M/uL (3.86-4.86)
[2020-01-24 04:23] LABS: Potassium 4.9 mmol/L (3.5-5.1)
[2020-01-24] MEDS: BUDESONIDE 0.5 MG/2 ML NEB IH SCH (07:36)
[2020-01-24] MEDS ORDERED: SERTRALINE HCL 50 MG TAB PO SCH (09:00)
[2020-01-24] MEDS ORDERED: SILVER SULFADIAZINE 1% 50 GM TOP SCH (09:00)
[2020-01-24] MEDS ORDERED: LEVOTHYROXINE SOD 0.112 MG TAB PO SCH (09:00)
[2020-01-24] MEDS: HYDRALAZINE HCL 25 MG TABLET PO SCH ×2 (09:00→14:00)
[2020-01-24] MEDS ORDERED: ISOSORBIDE MONO SR 30 MG TAB PO SCH (09:00)
[2020-01-24] MEDS: INSULIN GLARGINE 100 UNITS/ML SQ SCH (09:00)
[2020-01-24] MEDS: carvediloL 12.5 MG TAB PO SCH (09:00)
[2020-01-24] MEDS ORDERED: ENSURE HIGH PROTEIN 237 ML CAN PO SCH (09:00)
[2020-01-24] MEDS: NIFEDIPINE XL 60 MG TABLET PO SCH (09:00)
--- NOTE | 2020-01-24 10:25 | RAD REPORT ---
EXAM DESCRIPTION: CT - Head C Spine Cap Wo Con - 01/23/2020 6:57 am CLINICAL HISTORY: The patient is 64 years old and is Female; PAIN TECHNIQUE: Axial computed tomography images of the head/brain and cervical spine without intravenous contrast. Sagittal and coronal reformatted images were created and reviewed. This CT exam was pe rformed using one or more of the following dose reduction techniques: automated exposure control, a djustment of the mA and/or kV according to patient size, and/or use of iterative reconstruction techn ique. COMPARISON: CT December 05, 2019 FINDINGS: ARTIFACTS: The exam is suboptimal secondary to motion artifact. BRAIN: There is diffuse cerebral atrophy present, consistent with this patient's age. There is patchy hypoattenuation of the deep white matter which is non-specific, but most likely owing to chronometer adjuster stewart small vessel ischemic change in a patient of this age group. No intracranial hemorrhage, mass e ffect, or midline shift is seen. There are no extra-axial fluid collections. VENTRICLES: Unremarkable. No ventriculomegaly. SKULL: No acute fracture. SINUSES: Unremarkable as visualized. No acute sinusitis. MASTOID AIR CELLS: Unremarkable as visualized. No mastoid effusion. VERTEBRAE: The vertebral body heights and alignment are maintained. No acute fracture. DISCS/SPINAL CANAL/NEURAL FORAMINA: Minimal intervertebral disc space narrowing with osteophyte formation of the lower cervical spine is present. No significant canal stenosis or neural foraminal n arrowing is noted. SOFT TISSUES: Left parietal scalp soft tissue swelling with skin gaby in place is noted. LUNG APICES: Unremarkable as visualized. IMPRESSION: 1. No acute intracranial findings. 2. No definite fracture or malalignment of the cervical spine. However, evaluation is limited secon gamal to motion artifact. EXAM DESCRIPTION: CT Chest, Abdomen and Pelvis Without Intravenous Contrast CLINICAL HISTORY: The patient is 64 years old and is Female; PAIN TECHNIQUE: Axial computed tomography images of the chest, abdomen and pelvis without intravenous con trast. Sagittal and coronal reformatted images were created and reviewed. This CT exam was perfor med using one or more of the following dose reduction techniques: automated exposure control, adjus tment of the mA and/or kV according to patient size, and/or use of iterative reconstruction technique . COMPARISON: No relevant prior studies available. FINDINGS: CHEST: LUNGS: Tree-in-bud opacity within the left upper lobe is present and grossly similar to prior ex am. Atelectasis and scarring within the right middle and right lower lobe is noted. PLEURAL SPACE: A small left pleural effusion is present. A moderate right pleural effusion is pr esent. No pneumothorax. HEART: No cardiomegaly. No pericardial effusion. ABDOMEN: LIVER: The liver is enlarged. GALLBLADDER AND BILE DUCTS: The gallbladder is not definitively seen and may be surgically absen t versus contracted. PANCREAS: The pancreas is atrophic. No ductal dilation. SPLEEN: Unremarkable. ADRENALS: Unremarkable. No mass. KIDNEYS AND URETERS: Kidneys are grossly unremarkable. There is no hydronephrosis or hydroureter of either kidney. STOMACH AND BOWEL: Postsurgical change of the stomach is present. The small bowel is relatively normal in caliber. Stool is present throughout the colon. There is no mucosal thickening or evidence of bowel obstruction. PELVIS: APPENDIX: No findings to suggest acute appendicitis. BLADDER: Unremarkable. No stones. REPRODUCTIVE: Unremarkable as visualized. CHEST, ABDOMEN and PELVIS: INTRAPERITONEAL SPACE: Large amount of ascites is present throughout the abdomen and pelvis. N o free air. BONES/JOINTS: The bones have a mottled appearance. Degenerative change of the lumbar spine is no merna. Healing right anterior rib fractures are present. No acute fracture of the visualized axial and appendicular skeleton is noted. SOFT TISSUES: The soft tissues are normal. VASCULATURE: Extensive atherosclerosis of the vasculature is present. No aortic aneurysm. LYMPH NODES: Unremarkable. No enlarged lymph nodes. TUBES, LINES AND DEVICES: Central venous catheter on the left is present with the tip in the SVC . IMPRESSION: 1. No evidence of solid organ injury or traumatic bony findings on this noncontrasted CT of the chest, abdomen, and pelvis. 2. Chronic findings as detailed above. Electronically signed by: Chelsea Puri MD 01/23/2020 2:33 AM CDT Due to temporary technical issues with the PACS/Fluency reporting system, reports are being signed by the in house radiologist without review as a courtesy to ensure prompt reporting. The interpreting r adiologist is fully responsible for the content of the report.
[2020-01-24] MEDS: METOLAZONE 5 MG TABLET PO SCH (11:20)
[2020-01-24] MEDS: allopurinoL 100 MG TAB PO SCH (11:21)
[2020-01-24] MEDS: FUROSEMIDE 40 MG TABLET PO SCH (11:21)
[2020-01-24] MEDS: GABAPENTIN 100 MG CAP PO SCH ×2 (11:21→14:42)
[2020-01-24] MEDS: CLOPIDOGREL 75 MG TABLET PO SCH (11:22)
[2020-01-24] MEDS: BUPROPION HCL XL 150 MG TAB PO SCH (11:22)
--- NOTE | 2020-01-24 11:30 | P.DS ---
Admission Date: 01/23/20 Discharge Date: 01/24/20 Disposition: [place] HOME/HOME HEALTH CARE Reason for Admission: FALL and shortness of breath Consultations: Nephrology Brief History of Present Illness: 64-year-old woman with a history of end-stage heart disease on hemodialysis, chronic diastolic heart failure, history of anasarca on Lasix therapy, history of multiple falls was brought to the emergency department due to a fall at home. Patient stated she fell while trying to use the bathroom. She sustained a laceration to the scalp. The patient had also released 2 days dialysis. She also had been hospitalized for further management. Hospital Course: Patient placed under observation. The patient was evaluated by nephrology and she underwent hemodialysis. She had no confusion, no altered mental status. CT head done in the emergency department did not show any acute bleed. I informed her she will need to to be in a supervised environment and again recommended that she goes to skilled rehab.. The patient refused to go to any facility for rehab. She is clinically at baseline and will be discharged to home with home health. Fall precautions advised. Vital Signs/Physical Exam: Temp Pulse Resp BP Pulse Ox 96 F L 49 L 20 146/64 H 97 01/24/20 08:00 01/24/20 08:00 01/24/20 08:00 01/24/20 08:00 01/24/20 08:00 General: Alert, In no apparent distress HEENT: Other (Sutured scalp laceration-not bleeding) Neck: Supple, JVD not distended Respiratory: Clear to auscultation bilaterally, Normal air movement Cardiovascular: Normal S1 S2, Edema (Bilateral lower extremity edema significantly improved) Gastrointestinal: Normal bowel sounds, Soft and benign, No tenderness Integumentary: Other (Multiple bilateral lower extremity venostasis ulcers.) Neurological: Other (Nonfocal.) Laboratory Data at Discharge: WBC 4.6 K/uL (4.3-10.9) D 01/24/20 03:28 Hgb 8.4 g/dL (12.0-15.0) L 01/24/20 03:28 Hct 25.1 % (36.0-45.0) L D 01/24/20 03:28 Plt Count 153 K/uL (152-406) D 01/24/20 03:28 PT 13.7 SECONDS (9.5-12.5) H 10/25/20 01:15 INR 1.16 01/23/20 01:15 Sodium 141 mmol/L (136-145) 01/24/20 03:28 Potassium 4.9 mmol/L (3.5-5.1) 01/24/20 03:28 BUN 64 mg/dL (7-18) H 01/24/20 03:28 Creatinine 4.36 mg/dL (0.55-1.3) H 01/24/20 03:28 Glucose 88 mg/dL (74-106) 01/24/20 03:28 Magnesium 2.1 mg/dL (1.8-2.4) 01/23/20 01:15 Total Bilirubin 0.4 mg/dL (0.2-1.0) 01/23/20 01:15 AST 49 U/L (15-37) H 01/23/20 01:15 ALT 45 U/L (12-78) 01/23/20 01:15 Alkaline Phosphatase 284 U/L (45-117) H 01/23/20 01:15 Home Medications: Allopurinol 100 mg PO BID 01/23/20 Atorvastatin Calcium [Lipitor] 40 mg PO BEDTIME 01/23/20 Bupropion HCl [Bupropion Xl] 1 tab PO BID 01/23/20 Clopidogrel Bisulfate [Plavix*] 1 tab PO DAILY 01/23/20 Ensure High Protein 1 can PO DAILY 01/23/20 Fluticasone [Flovent Hfa 110*] 2 puff IN BID 01/23/20 Furosemide [Lasix] 40 mg PO BID 01/23/20 Gabapentin [Neurontin*] 1 tab PO TID 01/23/20 Hydralazine HCl [Apresoline] 50 mg PO TID 01/23/20 Insulin Detemir [Levemir Flextouch] 10 units SQ BID 01/23/20 Isosorbide Mononitrate [Isosorbide Mononitrate ER] 1 tab PO DAILY 01/23/20 Levothyroxine [Synthroid*] 1 tab PO DAILY 01/23/20 NIFEdipine [Nifedipine ER] 60 mg PO DAILY 01/23/20 Sertraline [Zoloft*] 25 mg PO DAILY 01/23/20 Silver Sulfadiazine [Ssd] 1 raquel TOP DAILY 01/23/20 carvediloL [Coreg*] 12.5 mg PO BID 01/23/20 metOLazone [Metolazone] 5 mg PO BID 01/23/20 Epoetin [Retacrit] 4,000 unit IV EVERY HD vial 01/24/20 Diet: ADA Activity: Fall precautions Followup: Unknown,U [Primary Care Provider] - 1 Week
[2020-01-24] MEDS ORDERED: ALBUMIN HUMAN 25% 50 ML IV ONE (12:31)
[2020-01-24 18:02] VITALS: BP 155/71; TEMP 97.3
[2020-01-24] MEDS ORDERED: PROMOD 30 ML DOSE PO SCH (21:00)
--- NOTE | 2020-01-24 22:49 | PN ---
Date of Progress Note: 01/24/2020 Chief Complaint: End-stage renal disease, hypertensive heart and kidney disease, diabetes mellitus w ith renal manifestation. Subjective: The patient is undergoing dialysis 3 times per week. The patient was brought to the [facility] after she sustained fall. The patient refused assisted placement. Apparently, she was not feeling well and she is asleep. She denies nausea or vomiting. Review of Systems: Denies PND or orthopnea. Physical Examination: Lungs: Diminished breath sounds at bases. Heart: S1, S2. Abdomen: Soft, benign. Extremities: Dressing in place. Bilateral lower extremity edema. Impression And Plan: 1.End-stage renal disease. Continue dialysis 3 times per week. Continue renal dose medication and advance ultrafiltration to treat congestive heart failure with fluid overload. 2.Hypertension. Blood pressure elevated. Resume blood pressure medication. Adjust treatment with ultrafiltration to control volemia. 3.Diabetes mellitus per primary. 4.Anemia in chronic kidney disease. Continue BRONWYN. JONNY/CELESTINE Voice ID: [id number] Report ID: [id number]
== END 2020-01-24 19:20 | disposition home health service (06) ==
LOC: ER 00:34 → INTOOBSV 04:36 → 2ND 04:36
PROVIDERS: ADMIT Internal Medicine; ATTEND Internal Medicine
PROC: 0HQ0XZZ Repair Scalp Skin, External Approach (ICD-10-PCS; principal; 2020-01-23)
PROC: 5A1D70Z Performance of Urinary Filtration, Intermittent, Less than 6 Hours Per Day (ICD-10-PCS; 2020-01-24)
DX: N18.6 End stage renal disease (principal); I25.10 Atherosclerotic heart disease of native coronary artery without angina pectoris; J44.9 Chronic obstructive pulmonary disease, unspecified; E11.22 Type 2 diabetes mellitus with diabetic chronic kidney disease; K21.9 Gastro-esophageal reflux disease without esophagitis; Z95.1 Presence of aortocoronary bypass graft; Z91.15 Patient's noncompliance with renal dialysis; Z99.81 Dependence on supplemental oxygen; E87.79 Other fluid overload; D63.8 Anemia in other chronic diseases classified elsewhere; I13.2 Hypertensive heart and chronic kidney disease with heart failure and with stage 5 chronic kidney disease, or end stage renal disease; I50.84 End stage heart failure; I50.32 Chronic diastolic (congestive) heart failure; S01.01XA Laceration without foreign body of scalp, initial encounter; W05.0XXA Fall from non-moving wheelchair, initial encounter; Y92.9 Unspecified place or not applicable
CPT/HCPCS: 93005; 85025 ×2; 80048 ×2; 36415 ×2; 83735; 85610; 82947 ×8; 80076; 84484; 83880; 70450; 71250; 72125; 71045; 72170; 73502; 73552; 90935 ×2; 97161; 97530; 94640 ×5; 96375; 96374; 99285; 12002; U0002; J0360; J3010; J1815 ×2; J1170 ×7; J1644; J0690; Q5105; P9047; J2405 ×3; G0378 ×3; G0390

== ENCOUNTER 2020-02-26 23:58 | Inpatient (IN) | payer MEDICAID ==
--- OUTSIDE RECORDS SUMMARY | 2020-02-27 00:03 | XMS REPORT | Clinical Summary ---
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 05/19/2017 [...] diseas e) with hadley on ([facility]) (Primary Dx) 12/16/2019 Orders Only Shiva Anderson, RN after 02/25/2019 Family History Medical History Relation Name Comments [...] YRS Completed 01/11/2014 Implants Implanted Type Area Insulation Estimator Device Shelf Model / Identifier Expiration Serial / Date Lot Device Clsr Angio-Seal Vip 8fr [id number] - [id number] Cardiovascular N/A: ST EVELYN 01/28/2018 [id number] / Implanted: Qty: 1 on 05/12/2017 by Joana Powers, Sandra Carter MD at [facility] Groin MED:CARDIAC / SURG [id number] Grft Eptfe-Heparin Rng [id number] - [id number] Graft/P atch Right: SUHAS GORE & 04/09/2021 [id number] / Implanted: Qty: 1 on 08/05/2017 by Mariela Santamaria MD at [facility] Leg ASSC:MED PRDT [id number] / N/A Description:GORE PROPATEN VASCULAR GRAFT REMOVABLE [...] procedure are in the results section. after 02/25/2019 Results EKG-SCANNED (01/05/2020 8:40 AM CDT) Narrative [...] POC-Glucose Meter 102Comment: : 70 - 110 [facility] mg/dL [facility] [address] [facility] [address]: [facility]/Technicia n ID = [id number] for Anne Salgado Specimen Blood Performing Organization Address City/State/Zipcode Phone Number [facility] [address] [place] [address] CENTER CBC with platelet count [...] LABORATORY e Specimen Blood Performing Organization Address City/[facility]/Zipcode Phone Number [facility] [address] [place], [place] [address] Comprehensive metabolic panel (01/01/2020 5:37 [...] DIALYSIS PATIENTS. Specimen Blood Narrative Performed At [facility] ID - ADMIN [facility] Performing Organization Address City/[facility]/Zipcode Phone Number [place] [address] [place], [place] [address] Magnesium (12/31/2019 6:05 AM CDT) Pathologist Sig nature Magnesium 1.6 1.5 - 3.0 mg/dL [facility] Specimen Blood Narrative Performed At [facility] - ADMIN [facility] [employer] [facility] Performing Organization Address City/[facility]/Zipcode Phone Number [facility] [address] [place], [place] [address] Anaerobic culture (12/30/2019 1:59 PM CDT)Only the most recent of2 results within the time period is included. Pathologist Sig nature Result No anaerobes isolated [facility] Result <1+ Coagulase negative [facility] Staphylococcus (A) LABORATORY Specimen Tissue - Structure of left foot (body st ructure) Organism Antibiotic Method Susceptibility Coagulase negative Staphylococcus Oxacillin 1: Susceptible Coagulase negative Staphylococcus Rifampin <=0.5: Susceptible Coagulase negative Staphylococcus Vancomycin <=0.5: Susceptible Performing Organization Address City/[facility]/Zipcode Phone Number [facility] [address] [place], [place] [address] Surgically obtained culture + gram stain (12/30/2019 1:59 PM CDT)Only the most recent of2 resultswithin the time period is included. Result 2+ Stenotrophomonas [facility] maltophilia (A) LABORATORY Gram Stain Result <1+ WBCs [facility] Gram Stain Result No organisms seen [facility] Specimen Tissue - Structure of left foot (body st ructure) Organism Antibiotic Method Susceptibility Stenotrophomonas maltophilia Levofloxacin 1: Susceptible Stenotrophomonas maltophilia Trimethoprim + Sulfamethoxazole <=20: Susceptible Performing Organization Address City/[facility] Phone Number [facility] [address] [place], [place] [address] Tissue Exam (12/30/2019 1:38 PM CDT) Case Report Surgical Pathology Report Case: [id number] S [facility] Authorizing Provider: Tala Lemus DPM Collected: 12/30/2019 01:38 PM LABORATORY Ordering Location: [address] Med/Surg Received: 12/31/2019 06:52 AM Pathologist: Jvoita Griffith MD Specimens: A) - Soft Tiss ue, Other, left 5th proximal phalanx B) - [place] tarsal, Left, left 5th metatarsal DIAGNOSIS A. BONE, LEFT FIFTH PROXIMAL PHALANX, BIOPSY: [facility] Electronically - SKIN WITH UNDERLYING CA RTILAGE WITH SURROUNDING ACUTE AND CHRONIC INFLAMMATION LABORATORY signed by Jovita Griffith MD B. BONE, LEFT FIFTH METATARSAL, BIOPSY: on 01/04/2020 at - ACUTE OSTEOMYELITIS 10: 21 AM - SEPARATE FRAGMENTS OF F IBROCONNECTIVE TISSUE WITH ABSCESS, NECROSIS AND GRANULATION TISSUE FORMATION Signing Pathologist Direct Phone Line: CPT Code(s) MG/ew [place] [address] x2 LABORATORY 34433 x2 CLINICAL HISTORY Osteomyelitis of left [facility] [...] performed at Hospital, Department LABORATORY of Pathology, [address] [place] [address], Technical [facility] Zana GALAN component was Medical [place], LABORATORY performed at Department of Pathology, [address] [place] [address], Professional St[address] Zana GALAN component was Hospital, Department LABORATORY performed at of Pathology, [address] [place] [address], Specimen Tissue - Soft tissue (navigational alda pt) Tissue specimen (specimen) - Metatarsal, Left Narrative Performed At This result has an attachment that is no t available. Performing Organization Address City/State/Zipcode Phone Number [facility] [address] [place] [phone] SARS-CoV2/RT-PCR (Asymptomatic ONLY) (12/30/2019 5:11 AM CDT)Only the most recent of3 resultswithin the time period is included. SARS-COV2/RT-PCR Negative Not Detected, KATHRYN FOOTE Negative, See [facility] external report CENTER for linked test SARS-COV-2 [facility] JANET FOOTE PERFORMING LAB [facility] Specimen Other - Nasopharyngeal wall structure (b yocasta structure) Narrative Performed At Negative result for this test determines that [facility] ST Viraj [facility] SARS-CoV-2 RNA was not present in the [...] the Act. Fact Sheet for Healthcare Providers: https://www.[employer].com/sites/default/files/pro duct/documents/Fact_Sheet_HC_Providers_Lyra_SA RS-CoV-2.pdf Fact Sheet for Healthcare Patients: https://www.[employer]/sites/default/files/pro duct/documents/Fact_Sheet_Patients_Lyra_SARS-C oV-2.pdf Performing Laboratory: [facility] [address] [facility] [place] [address] Performing Organization Address City/State/Zipcode Phone Number [facility]HRYN [facility] [address] [place], [place] [phone] CENTER MR lower extremity without IV contrast left side (12/27/2019 4:30 PM CDT) Specimen Narrative Performed At FINAL REPORT [facility] MRI OF THE LEFT FOOT WITHOUT CONTRAST [...] Report Verified Date/Time: 12/27/2019 16:55:07 Reading Location: [facility] Radiology Reading Room Procedure Note Interface, [...] Verified Date/Time: 12/27/2019 1 6:55:07 Reading Location: [facility] Radiology Reading Room Performing Organization Address City/State/Zipcode Phone Number [facility] Wound culture + gram stain (12/27/2019 12:02 PM CDT) Result 1+ Stenotrophomonas [place] maltophilia (A) LABORATORY Result 1+ Kary parapsilosis [facility] (A) [facility] Gram Stain Result <1+ WBCs [facility] Gram Stain Result <1+ gram negative rods [facility] Specimen Wound - Structure of right foot (body st ructure) Organism Antibiotic Method Susceptibility Stenotrophomonas maltophilia Levofloxacin 2: Susceptible Stenotrophomonas maltophilia Trimethoprim + Sulfamethoxazole <=20: Susceptible Performing Organization Address City/State/Zipcode Phone Number [facility] [address] [facility] [place], [place] [address] TRANSFUSION SERVICE REPORT - SCAN (12/26/2019 6:02 PM CDT)Only the most recent of2 resultswithin the time period is included. Narrative Performed At This result has an attachment that is no t available. CTA AAA and Runoff (12/26/2019 3:27 PM CDT) Specimen Narrative Performed At Addendum Begins Sand Sign RIS REPORT STATUS:A I agree with the nonvascular findings wi th exceptions and emphasis as below: *Moderate right and small left pleural e ffusions are partially visualized. *Large volume ascites. *Diffuse anasarca *The reflux of contrast into the hepatic veins is concerning for volume overload. Signed: Gerry Crum MD Report Verified Date/Time: 12/27/2019 11:38:28 Reading Location: [facility] Reading Room - [place] [address] Add[address]um Ends FINAL REPORT CT angiography of the abdominal aorta an d runoff, 26-Dec-19 INDICATION: This is a 64 year old female with with lower leg penetrating trauma presents for assessme nt. TECHNIQUE: Spiral acquisition before and during intravenous contrast administration using a Sand Sign multidetector CT scanner. Images were obtained before [...] identified. However, significant calcification identified of the [place] left SFA, for e xample at image [...] righ t popliteal artery is patent, with [id number] diffuse calcificat ion identified with no obstructive [...] rosclerosis identified. 4. In the right, the [place] right SFA is not filled by contrast [...] regard ing the non-vascular findings by the Medical Logistics Specialist Radiologist. Signed: Shlomo Dockery MD Report Verified Date/Time: 12/27/2019 07:59:51 Reading Location: [place] [address] [address] Reading Room Procedure Note Interface, External Ris In - 12/27/2019 11:40 AM CDT Addendum Begins REPORT STATUS:A I agree with the nonvascular findings wi th exceptions and emphasis as below: *Moderate right and small left pleural e ffusions are partially visualized. *Large volume ascites. *Diffuse anasarca *The reflux of contrast into the hepatic veins is concerning for volume overload. Signed: eGrry Crum MD Report Verified Date/Time: 12/27/2019 1 1:38:28 Reading Location: [facility] Imagin Reading Room - [facility] F1 [address] FINAL REPORT CT angiography of the abdominal aorta an saige runoff, 26-Dec-19 INDICATION: This is a 64 year old female with with lower leg penetrating trauma presents for assessme nt. TECHNIQUE: Spiral acquisition before and during intravenous contrast administration using a Sand Sign multidetector CT scanner. Images were obtained before [...] identified. However, significant calcification identified of the [place] left SFA, for e xample at image [...] righ t popliteal artery is patent, with [id number] diffuse calcificat ion identified with no obstructive [...] rosclerosis identified. 4. In the right, the [place] right SFA is not filled by contrast [...] regardadonis gtz the non-vascular findings by the Medical Logistics Specialist Radiologist. Signed: Shlomo Dockery MD Report Verified Date/Time: 12/27/2019 0 7:59:51 Reading Location: [place] [address] [address] Reading Room Performing Organization Address City/[facility]/Zipcode Phone Number GE RIS Prepare Leuko-Red RBC (12/25/2019 11:54 PM CDT) Pathologist Sig nature CROSSMATCH COMPATIBLE SAFETRACE TX Unit ABO O Pos SAFETRACE TX UNIT NUMBER [id number] SAFETRACE TX Status TX_TIMEINCHART SAFETRACE TX Blood Bank Product RED BLOOD CELLS SAFETRACE TX PRODUCT CODE [id number] SAFETRACE TX Specimen Other Performing Organization Address [facility] Phone Number SAFETRACE TX Transfuse Leuko-Red RBC (12/24/2019 7:06 PM CDT)ABORH, manual (12/24/2019 8:25 AM CDT) Pathologist Sig nature Rh Factor POS [facility] ABO Grouping OComment: [place] [facility] 12/24/19 @ 0824 HOSPITAL Specimen Blood Performing Organization Address [facility] Phone Number [facility] [address] [place] [address] [phone] [facility] Type and screen, automated (12/24/2019 6:08 AM CDT) Pathologist Sig nature ABO/RH AUTOMATED O [facility] (BEAKER) POSITIVEComment [facility] : ECHO Ab Scrn NEGATIVEComment [facility] : [facility] Specimen Blood Performing Organization Address [facility] Phone Number [facility] [address] [place] [address] [facility] MR lower extremity joint only [...] Report Verified Date/Time: 12/23/2019 16:10:32 Reading Location: [address] Reading Room Procedure Note Interface, External [...] Verified Date/Time: 12/23/2019 1 6:10:32 Reading Location: [facility] [id number] Ortho Con sult Reading Room Performing Organization Address City/State/Zipcode Phone Number Sand Sign [facility] MR brain without IV contrast (12/23/2019 3:34 PM CDT) Specimen Narrative Performed At FINAL REPORT Sand Sign [facility] MR, BRAIN, WITHOUT CONTRAST INDICATION: Headache, post [...] 5:43:24 Performing Organization Address City/State/Zipcode Phone Number [facility] Arterial Doppler Legs Bilateral (12/23/2019 9:38 AM CDT) Specimen Narrative Performed At FINAL REPORT [facility] EXAM: Bilateral Lower Extremity Arterial Ultrasound HISTORY: [...] Report Verified Date/Time: 12/23/2019 11:22:31 Reading Location: [facility] Radiology [facility] [address] Room Procedure Note Interface, External Ris In [...] Verified Date/Time: 12/23/2019 1 1:22:31 Reading Location: [facility] Radiology [facility] Performing Organization Address City/[facility] Phone Number [employer] Ammonia (12/23/2019 4:05 AM CDT)Only the most recent of2 resultswithin the time period is included. Pathologist Sig nature Ammonia 36 17 - 80 mol/L [facility] Specimen Blood Narrative Performed At [facility] - ADMIN [facility]AT[facility] Performing Organization Address [facility] Phone Number [facility] [address] [place], [place] [phone] C-Reactive Protein (12/21/2019 4:39 AM CDT) Pathologist Sig nature CRP 1.63 (H) 0.00 - 0.50 mg/dL [facility] Specimen Blood Narrative Performed At [facility] ID - ADMIN [facility] Performing Organization Address [facility] Phone Number [facility] [address] [place] [phone] US abdomen complete (12/20/2019 9:17 PM CDT) Specimen Narrative Performed At FINAL REPORT [facility] INDICATION: thrombocytopenia / eval for hepatosplenomegaly COMPARISON: [...] 2:02:21 Performing Organization Address City/State/Zipcode Phone Number Nautit CT brain without IV contrast (12/20/2019 4:04 PM CDT) Specimen Narrative Performed At FINAL REPORT Nautit CT, BRAIN, WITHOUT CONTRAST INDICATION: Head trauma, [...] Date/Time: 12/20/2019 1 6:08:40 Performing Organization Address City/[facility] Phone Number [facility] Blood gas, arterial (12/20/2019 2:28 PM CDT) [...] [facility] FIO2 32.0 % [facility] Specimen Blood, Arterial Performing Organization Address City/[facility]/Zipcode Phone Number [facility] [address] [place] [phone] XR foot 2 views right (12/20/2019 11:55 AM CDT) Specimen Narrative Performed At FINAL REPORT [facility] TECHNIQUE: Two views of the right foot [...] Report Verified Date/Time: 12/20/2019 15:15:25 Reading Location: [facility] Radiology Readin g Room Procedure Note Interface, [...] Verified Date/Time: 12/20/2019 1 5:15:25 Reading Location: [facility] Radiology Readin g Room Performing Organization Address City/State/Zipcode Phone Number GE RIS XR foot 2 views left (12/20/2019 11:55 AM CDT) Specimen Narrative Performed At FINAL REPORT [facility] TECHNIQUE: Two views of the right foot [...] Report Verified Date/Time: 12/20/2019 15:15:25 Reading Location: [facility] Radiology Readin g Room Procedure Note Interface, [...] Verified Date/Time: 12/20/2019 1 5:15:25 Reading Location: [facility] Radiology Readin g Room Performing Organization Address City/[facility]/Zipcode Phone Number GE RIS Occult blood, stool (12/20/2019 6:19 AM CDT) Pathologist Sig nature Occult blood Negative Negative [facility] Specimen Stool - Feces (substance) Performing Organization Address [facility] Phone Number [facility] [address] [place], [place] [address] Peripheral Blood Smear - Path Review (12/20/2019 5:06 AM CDT) RBC Morphology Target Cells [place] Basophilic Stippling LABORATORY Nucleated Red Blood Cells Pathologist Review Normochromic normocytic [place] anemia with a few LABORATORY target cells, nucleated RBCs and basophilic stippling. No increase in schistocytes. WBCs normal in number and morphology. Thrombocytopenia with normal platelet morphology. Pathologist: Jovita Griffith M.D. [facility] (electronic signature) [facility] Specimen Blood Performing Organization Address [facility] Phone Number [facility] [address] [place], [place] [address] Vitamin B12 and Folate (12/20/2019 5:06 AM CDT) Pathologist Sig [facility] Vitamin B12 1,431 (H) 211 - 911 pg/mL [facility] Folate 17.00 >=5.4 ng/mL [facility] Specimen Blood Narrative Performed At [facility] - ADMIN [facility] Performing Organization Address [facility] Phone Number [facility] [place], [place] [address] TSH/Free T4 If Indicated (12/20/2019 5:06 AM CDT) Pathologist Sig [facility] TSH 21.210 (H) 0.350 - 5.500 uIU/mL [facility] LABORATOR Y Specimen Blood Narrative Performed At [facility] ID - ADMIN [facility] Performing Organization Address [facility] Phone Number [facility] [address] [place], [place] [address] PT/aPTT (12/20/2019 5:06 AM CDT) Pathologist Sig nature Protime 13.5 (H) 9.3 - 12.0 sec [facility] INR 1.25 <=5.90 [facility] PTT 38.2 (H) 23.0 - 35.0 sec [facility] Specimen Blood Narrative Performed At RECOMMENDED COUMADIN/WARFARIN INR THERAP Y RANGES [facility] STANDARD DOSE: 2.0 - 3.0 Includes: PROPHYLAXIS for venous thrombosis, systemic embolization; TREATMENT for venou s thrombosis and/or pulmonary embolus. HIGH RISK: Target INR is 2.5-3.5 for patients with mec hanical heart valves. Final Information (Auto Output) Final Information (Auto Output) Final Information (Auto Output) Performing Organization Address City/State/Zipcode Phone Number [facility] [address] [place] [phone] Iron, TIBC, % sat. (without ferritin) (12/20/2019 5:06 AM CDT) Pathologist Sig nature Iron 92.0 45.0 - 170.0 [facility] ug/dL TIBC 151 (L) 250 - 550 ug/dL [facility] Iron % Saturation 61 (H) 20 - 55 % [facility] Specimen Blood Narrative Performed At [facility] - ADMIN [facility] Performing Organization Address City/[facility]/Zipcode Phone Number [facility] [address] [place] [phone] ROGER Titer & Pattern (12/20/2019 5:06 AM CDT) Pathologist Sig nature ROGER Titer 1:40 [facility] ICAL CENTER ROGER Pattern Speckled [facility] ICA CENTER Specimen Blood Performing Organization Address City/State/Zipcode Phone Number [facility] [address] [place] [address] CENTER Davis / lambda light chains, serum (12/20/2019 5:06 AM CDT) Davis Lt 474.4 (H) 3.3 - 19.4 [facility] Chain,Free mg/L [facility] Lambda Lt 225.6 (H) 5.7 - 26.3 [facility] Chain,Free mg/L [facility] Davis/Lambda,Fr 2.10 (H) 0.26 - 1.65 [facility] [...] Lab [facility] EZ [facility] [address] [place] [address] Adonis Stein MD, PhD, CORI Performing Organization Address City/[facility] Phone Number [facility] [place] [address] INCORPORATED [address] [facility] Fibrinogen (12/20/2019 5:06 AM CDT) Pathologist Sig nature Fibrinogen 340 200 - 400 mg/dL [facility] Specimen Blood Narrative Performed At Final Information (Auto Output) [facility] Performing Organization Address [facility] Phone Number [facility] [address] [place] [phone] D-dimer (12/20/2019 5:06 AM CDT) Pathologist Sig nature D-Dimer, Quant 1.09 (H) <0.50 mg/L [facility] Specimen Blood Narrative Performed At REGARDING D-DIMER RESULTS: The 98% NPV (Negative Predi ctive [facility] Value) for DVT/PE exclusion is 0.50 mg/L FEU as sugges merna by the metal bending machine operator and as approved by the FDA. Final Information (Auto Output) Performing Organization Address [facility] Phone Number [facility] [address] [place], [place] [phone] Reticulocyte count (12/20/2019 5:06 AM CDT) Pathologist Sig nature % Retic 5.9 (H) 0.4 - 2.9 % [facility] Specimen Blood Performing Organization Address [facility] Phone Number [facility] [address] [place], [place] [address] Anti-Nuclear Antibody (ROGER) (12/20/2019 5:06 AM CDT) Pathologist Sig nature ROGER Positive (A) Negative [facility] Specimen Blood Narrative Performed At Test performed by IFA method. [facility] Performing Organization Address City/[facility]/Zipcode Phone Number [facility] [address] [place], [place] [phone] CENTER T4, free (12/20/2019 5:06 AM CDT) Pathologist Sig nature Free T4 0.52 (L) 0.90 - 1.80 ng/dL [facility] Specimen Blood Narrative Performed At [facility] - ADMIN [facility] Performing Organization Address [facility]/Zipcode Phone Number [facility] [address] [place], [place] [address] Protein electrophoresis, serum (12/20/2019 5:06 AM CDT) Albumin Fraction 2.4 (L) 3.5 - 5.5 [facility] g/dL [facility] Alpha 1 Fraction 0.4 0.2 - 0.4 [facility] g/dL [facility] Alpha 2 Fraction 0.4 (L) 0.5 - 0.9 [facility] g/dL [facility] Beta Fraction 0.8 0.6 - 1.1 [facility] g/dL [facility] Gamma Globulin 2.3 (H) 0.7 - 1.7 [facility] Fraction g/dL [facility] Interpretation Decreased albumin, [facility] suggestive of renal [facility] damage. [facility] elevation of gamma fraction, suggesting chronic inflammatory response. No monoclonal bands detected. Pathologist: KATHRYN Rothman MD (electronic [facility] signature) [facility] Protein, Total 6.3 6.0 - 8.3 [facility] gm/dL [facility] Specimen Blood Narrative Performed At [facility] - LEONIE Jay [facility] Performing Organization Address City/State/Zipcode Phone Number [facility] [address] [place], [place] [id number] CENTER Haptoglobin (12/20/2019 5:06 AM CDT) Pathologist Sig nature Haptoglobin <8 (L) 14 - 258 mg/dL [facility] Specimen Blood Narrative Performed At [facility] - LEONIE Jay [facility] Performing Organization Address City/State/Zipcode Phone Number [facility] [address] [place] [address] CENTER Ferritin (12/20/2019 5:06 AM CDT) Pathologist Sig nature Ferritin 595.00 (H) 10.00 - 291.00 ng/mL [facility] Specimen Blood Narrative Performed At [facility] - ADMIN [facility] Performing Organization Address [facility] Phone Number [facility] [place], [place] [address] Lactate dehydrogenase (LDH) (12/19/2019 5:35 AM CDT) Pathologist Sig nature LDH 178 107 - 206 U/L [facility] Specimen Blood Narrative Performed At [facility] - [facility]MIN [facility] Performing Organization Address [facility] Phone Number [facility] [address] [place] [phone] Basic Metabolic Panel (12/19/2019 5:35 [...] DIALYSIS PATIENTS. Specimen Blood Narrative Performed At [facility] - [facility] Performing Organization Address City/State/Zipcode Phone Number [facility] [address] [place], [place] [address] Hepatitis C antibody (12/16/2019 4:02 PM CDT) Pathologist Sig nature Hepatitis C Ab Nonreactive Nonreactive [facility] Specimen Blood Narrative Performed At [facility] - [facility] [place] Performing Organization Address City/State/Zipcode Phone Number [address] [address] CENTER Hepatitis B core antibody, total (12/16/2019 4:02 PM CDT) Pathologist Sig nature Hep B Core Total Ab Nonreactive Nonreactive [facility] Specimen Blood Narrative Performed At [facility] - [facility] Performing Organization Address City/State/Zipcode Phone Number [address] [address] CENTER Hepatitis B surface antibody (12/16/2019 4:02 PM CDT) Pathologist Sig nature Hep B S Ab <8.0 <8.0 mIU/mL [facility] Specimen Blood Narrative Performed At [facility] - [facility] Performing Organization Address City/State/Zipcode Phone Number [address] [address] CENTER Hepatitis B surface antigen (12/16/2019 4:02 PM CDT) Pathologist Sig nature HBsAg Screen Nonreactive Nonreactive [facility] Specimen Blood Narrative Performed At [facility] - [facility] Performing Organization Address City/State/Zipcode Phone Number [facility] [address] [facility], [place] [address] IR Tunneled Catheter Insertion (12/16/2019 2:26 PM CDT) Specimen Narrative Performed At [facility] Tunneled dialysis catheter insertion. History: Renal failure. [...] the patient's medical record by the nurse. Vinyl Cutter: Arlin Flores M.D. Pr Internship: none. Approach: Right internal jugular vein Estimated [...] needle into the right atrium. A 4 Indian micropuncture sheath was placed and a 0.035 wire was advanced into the IVC. A subcutane ous tunnel was created in the left anterior chest wall by blunt dissec tion. A 23 cm tip to cuff 15.5 Indian Duraflow 2 catheter was brou ght through [...] Report Verified Date/Time: 12/16/2019 15:06:45 Reading Location: [facility] Radiology [facility] Procedure Note Interface, External Ris In - [...] the patient's medical record by the nurse. Vinyl Cutter: Arlin Flores M.D. Pr Internship: none. Approach: Right internal jugular vein Estimated [...] needle into the right atrium. A 4 Indian micropuncture sheath was placed and a 0.035 wire was advanced into the IVC. A subcutaneo us tunnel was created in the left anterior chest wall by blunt dissec tion. A 23 cm tip to cuff 15.5 Indian Duraflow 2 catheter was brou ght through [...] Verified Date/Time: 12/16/2019 1 5:06:45 Reading Location: [facility] Radiology [facility] [address] Room Performing Organization Address City/State/Zipcode Phone Number [facility] chest 1 view portable / bedside (12/16/2019 5:55 AM CDT) Specimen Narrative Performed At [facility] TECHNIQUE: Frontal view of the chest. INDICATION: [...] Report Verified Date/Time: 12/16/2019 09:20:06 Reading Location: [facility] Radiology Readin g Room Procedure Note Interface, [...] Verified Date/Time: 12/16/2019 0 9:20:06 Reading Location: [facility] Radiology Readin g Room Performing Organization Address [...] Output) Performing Organization Address City/State/Zipcode Phone Number [facility] [address] [facility] [place] [place] [address] after 02/25/2019 Insurance Payer Benefit Plan / Subscriber ID Effective Dates Phone Addre ss Type Group [place] [employer] MEDICAID [place] [id number] 2011-Present Advance Directives For more information, please contact: [phone] Code Status Date Activated Date Inactivated Comments [...]
--- OUTSIDE RECORDS SUMMARY | 2020-02-27 00:21 | XMS REPORT | Continuity of Care Document ---
:1955 Author Organization [facility] t Address [address] [place] [address] Care Team Providers Name Role Phone Landy Rendon Primary Care Physician LISA MOHAMUD Attending Clinician Unavailable Cade PIERRE, Lisa Attending Clinician Tracy Underwood MD Attending Clinician [...] Date Expiration Date Sour ce Number ALMANZA [id number] [facility] MEDICAIDMEDICAID 00:00:00 - Marium [id number] Ce nter 2-Present Problems Condition Condition Condition Status Onset Resolution Last Treating Co mments Source Name Details Category Date Date Treatment Clinician Date Kidney Kidney Disease Active [facility] disease disease [facility]17 [facility] 00 Center S/P [...] IBS 5-10 [facility] - 00:[facility]: Medical 00 [place] Leukocytos Leukocytos Disease Active C [facility] [...] rosis of 2-19 [facility] [facility] [place] 00:00: Medical artery of artery of 00 Cent er extremity extremity with with ulceration ulceration Acute CHF Acute CHF Disease Active [facility] 00 [facility] COPD COPD Disease Active [facility] (chronic (chronic -14 [facility] - obstructiv obstructiv 00:00: Hi dical e e 00 Center pulmonary pulmonary disease) disease) Controlled Controlled Disease Active [facility] type 2 type 2 2-14 [facility] - diabetes diabetes 00:00: Medica l mellitus mellitus 00 Center with 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 disorder, disorder, with with long-term long-term current current use of use of insulin insulin Smoker Smoker Disease Active [facility] 00 Center Frequent Frequent Disease Active [facility] PVCs PVCs 2-12 [facility] - [facility] Medical 00 Center Essential Essential Problem Active [facility] (primary) (primary) [facility] - hypertensi hypertensi Me moria on on l [facility] Depression Depression Problem Active [facility] , , [facility] - unspecifie unspecifie Hi moriromero d d l depression depression Ou tpati type type ent Clinics History of History of Problem Active [facility] cancer cancer [facility] Primary Primary Problem Active [facility] insomnia insomnia [facility] Chronic Chronic Problem Active [facility] acquired acquired [facility] - lymphedema lymphedema Me moria l [facility] Chronic Chronic Diagnosis Active [...] d COPD d COPD Clinics type type CHCF CHCF Problem Active [facility] current current [facility] - use of use of Memoria insulin insulin l [facility] History of History of Problem Active [facility] stroke stroke [facility] 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[address] [facility] diabetes diabetes [facility] - mellitus mellitus Memori a with with l hyperglyce hyperglyce Ou tpati cr [facility] 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[address] [facility] diabetes diabetes [facility] - mellitus mellitus Memori a with with l diabetic diabetic Outpat i chronic chronic ent kidney kidney Clinics disease disease Kidney Kidney Problem Active [facility] disease disease [facility] - [facility] Allergies, Adverse Reactions, Alerts Allergy Allergy Status Severity Reaction(s) Onset Inactive Treating Comm ents Source Name Type Date Date Clinician Trazodon Drug Active Nausea And [address] [facility] e Allergy Vomiting 2 [facility] - 00:[facility]: Medical 00 Center Amoxicil Propensi Active Diarrhea [address] [facility] kenzie-Pot ty to 04-21 [facility] - Clavulan adverse 00:00: Medical ate reaction 00 [place] Basil Propensi Active Nausea Only [address] [facility] ty to 04-21 [facility] - adverse 00:00: Medical reaction 00 Center s Morphine Propensi Active Anaphylaxis [address] ty to 04-21 [facility] - adverse 00:00: Medical reaction 00 [place] s Nitrogly Propensi Active Nausea And [address] [facility] cerin ty to Vomiting 04-21 ONLY [facility] - adverse 00:00: Medical reaction 00 [place] s Vancomyc Propensi Active Nausea And [address] in ty to Vomiting 04-21 [facility] - Analogue adverse 00:00: Medical s reaction 00 [place] s Vancomyc Adverse Active vomiting [facility] in HCl Reaction [facility] Nitrogly Adverse Active vomiting [facility] cerin Reaction [facility] - [facility] Morphine Adverse Active headache, [facility] Sulfate Reaction breathing Luke s - Memoria l [facility] Clindamy Adverse Active vomiting [facility] t riley HCl Reaction [facility] - [facility] ent Clinics Family History Family Member Diagnosis Comments Start Date Stop Date Source Natural father COPD [facility] Natural father Cancer [facility] Natural father Hypertension [facility] Natural mother No Known Problem [facility] Natural sister Asthma [facility] Natural sister COPD [facility] Social History Social Habit Start Date Stop Date Quantity Comments Source Sex Assigned At [facility] Cigarettes smoked 2019-12-31 2019-12-[address] [facility] [address] [facility] - current (pack per 00:00:00 00:00:00 [facility] Center day) - Reported Cigarette 2019-12-31 2019-12-31 [facility] bernardino - pack-years 00:00:00 00:00:00 [facility] Tobacco use and 2019-12-31 2019-12-31 Never used [facility] - exposure 00:00:00 00:00:00 [facility] Alcohol intake 2019-12-31 2019-12-31 Current [facility] - 00:00:00 00:00:00 non-drinker of Medical Ce nter alcohol (finding) History of tobacco 2017-05-[address] [facility] - use 00:00:00 [facility] Smoking Status Start Date Stop Date Source Former smoker 2019-12-31 00:00:00 2019-12-31 00:00:00 [facility] Medications Ordered Filled Start Stop Current Ordering Indication Dosage Frequency Signature Comments Components Source Medication Medication Date Date Medication? Clinician (SIG) Name Name mupirocin 2019-03 Yes QD Apply [facility] (BACTROBAN) 0-03 topically Lay es - 2 % 10:49: daily. Medical ointment 00 [place] collagenase 2019-03 Yes QD Apply [facility] t (SANTYL) 0-03 topically [facility] - 250 units/g 10:49: daily. Medi marilin ointment 00 [place] bumetanide 2019-03 Yes 2mg [id number] Take [address] [address] (BUMEX) 2 0-03 [id number] by mouth 3 [facility] - MG tablet [...] 00:00 Medical 48 :00 Center aspirin 81 2020- No 81mg QD Take 81 mg [...] [facility] en-codeine 6-08 tablet by Miguel A s - (TYLENOL 00:00: mouth Medical #3) [...] 12.5mg Q.5D Take [address] (COREG) 4- tablet [facility] - 12.5 MG 00:00: (12.5 mg Medica l tablet 00 total) by Center mouth 2 (two) times daily. atorvastati Yes 40mg QD Take [address] [facility] n (LIPITOR) - tablet (40 Janna kes - 40 MG [...] - MOUTH Memoria EVERYDAY l AT BEDTIME Outpati ent Clinics Isosorbide Isosorbide Yes Franki TAKE [address] [facility] [address] Mononitrate Mononitrate Jas TABLET BY [facility] - ER ER MOUTH Memoria EVERY DAY l Outpati ent Clinics NIFEdipine NIFEdipine Yes Franki TAKE [address] [facility] ER ER Jas TABLET BY [facility] - MOUTH Memoria EVERY DAY l Outpati ent Clinics BuPROPion BuPROPion Yes Franki TAKE [address] HCl HCl Jas TABLET BY [facility] - MOUTH Memoria EVERY DAY l Outpati ent Clinics Acetaminoph Acetaminoph Yes Franki (Schedule [facility] en-Codeine en-Codeine Jas III Drug) Lubernardino - #3 #3 TAKE 1 Memoria TABLET BY l MOUTH Outpati EVERY 6 ent HOURS Clinics NEEDED FOR PAIN Carvedilol Carvedilol Yes Franki TAKE [address] [facility] Jas TABLET BY [facility]ukes - MOUTH Memoria TWICE A l DAY [facility] Advair Advair Yes Franki INHALE 1 [facility] t Diskus Diskus Jas DOSE BY [facility]ukes - MOUTH Memoria TWICE l DAILY. [facility] RINSE ent MOUTH Clinics AFTER USE Atorvastati Atorvastati Yes Franki TAKE [address] [facility] n Calcium n Calcium Jas TABLET BY [facility]ukes - MOUTH Memoria EVERY DAY l [facility]ics Allopurinol Allopurinol Yes Franki TAKE [address] [facility] [address] Jas TABLET BY Lukes - MOUTH Memoria TWICE A l DAY [facility]ics Gabapentin Gabapentin Yes Franki [...] MOUTH ONE Memoria TIME PER l WEEK [facility]ics Furosemide Furosemide Yes Franki [...] Clinics HydrALAZINE HydrALAZINE Yes Franki TAKE 1 [facility] HCl HCl Jas TABLET BY [facility] - MOUTH Memoria THREE l TIMES A Out DAY ent Clinics Vital Signs Vital Name Observation Time Observation Value Comments Source Heart rate 2020-01-01 08:41:00 60 /min [facility] Respiratory rate 2020-01-01 08:41:00 18 /min [facility] Oxygen saturation in 2020-01-01 08:41:00 100 /min [facility] Arterial blood by Medical Ce nter Pulse oximetry Systolic blood 2020-01-01 08:32:00 162 mm[Hg] [facility] Diastolic blood 2020-01-01 08:32:00 73 mm[Hg] [facility] Body temperature 2020-01-01 07:41:00 36.56 Deanne [facility] Body weight 2019-12-30 04:28:00 78.2 kg [facility] BMI 2019-12-30 04:28:00 27.00 kg/m2 [facility] Body height 2019-12-25 21:05:00 170.2 cm [facility] Procedures Procedure Date / Time Performed Performing Clinician [facility] e REPORT OF PROCEDURE - 2020-01-05 08:40:02 Provider, [facility] ENDOSCOPY SCAN [facility] RHYTHM STRIP - SCAN 2020-01-05 08:31:43 Provider, [facility] RHYTHM STRIP - SCAN 2020-01-05 08:31:42 Provider, [facility] RHYTHM STRIP - SCAN 2020-01-05 08:31:40 Provider, [facility] CARDIAC CATH REPORT - 2020-01-05 08:31:15 Provider, [facility] CARDIAC CATH REPORT - 2020-01-05 08:31:13 Provider, [facility] POCT-GLUCOSE METER 2020-01-01 06:33:00 Pat Mohamud [facility] COMPREHENSIVE METABOLIC 2020-01-01 05:37:00 Lily Echavarria [facility] CBC W/PLT COUNT & AUTO 2020-01-01 05:37:00 Lily Echavarria [facility] POCT-GLUCOSE METER 2019-12-31 20:50:00 Cade, [facility] POCT-GLUCOSE METER 2019-12-31 18:00:00 Cade [facility] POCT-GLUCOSE METER 2019-12-31 11:42:00 Cade, [facility] POCT-GLUCOSE METER 2019-12-31 06:29:00 [facility] COMPREHENSIVE METABOLIC 2019-12-31 06:05:00 [facility] MAGNESIUM 2019-12-31 06:05:00 Cade [facility] CBC W/PLT COUNT & AUTO 2019-12-31 06:05:00 [place] [facility] POCT-GLUCOSE METER 2019-12-30 20:13:00 CadePat diaz [facility] POCT-GLUCOSE METER 2019-12-30 16:26:00 Cade [facility] SURGICALLY OBTAINED 2019-12-30 13:59:46 Neeta Tala [facility] - CULTURE + GRAM STAIN Medical [facility] ter ANAEROBIC CULTURE 2019-12-30 13:59:46 Tala Santacruz [facility] SURGICALLY OBTAINED 2019-12-30 13:54:56 Tala Santacruz [facility] - CULTURE + GRAM STAIN Medical [facility] ter ANAEROBIC CULTURE 2019-12-30 13:54:56 [facility] T[facility] 2019-12-30 13:38:00 Neeta [place] [facility],BONE FOOT 2019-12-30 13:11:00 Neeta [facility] POCT-GLUCOSE METER 2019-12-30 11:39:00 [facility] PO[facility]SE [facility]ER 2019-12-30 05:39:00 Evens Mohamudluis Gonzalez [facility] SARS-COV2/RT-PCR ([facility] & 2019-12-30 05:11:00 Evens Mohamudluis Katfarhad [facility] - REF LABS) [facility] METABOLIC 2019-12-30 05:09:00 [facility] CBC W/PLT COUNT & AUTO 2019-12-30 05:09:00 [place] [facility] POCT-GLUCOSE METER 2019-12-29 21:09:00 [facility] POCT-[facility]SE METER 2019-12-29 11:10:00 Evens [facility]udluis [facility] HEM[facility]IS INPATIENT 2019-12-29 08:12:17 Brandie Khan [facility] POCT-GLUCOSE METER 2019-12-29 06:10:00 [facility] 2019-12-29 05:50:00 [place] [facility] CBC W/PLT COUNT & AUTO 2019-12-29 05:50:00 [place] [facility] POCT-GLUCOSE METER 2019-12-28 20:37:00 Cade Pat [facility] POCT-GLUCOSE METER 2019-12-28 17:38:00 [facility]ud [facility] POCT-GLUCOSE METER 2019-12-28 13:12:00 Evens [facility]udluis [facility] POCT-GLUCOSE METER 2019-12-28 05:43:00 Evens [facility]lu[facility] 2019-12-28 04:41:00 [facility] CBC W/PLT COUNT & AUTO 2019-12-28 04:41:00 [place] [facility] ABD AO & LOWER EXT 2019-12-28 02:30:00 Sakina Tamayo [facility] - ANGIOS/ [facility] POCT-GLUCOSE METER 2019-12-27 20:32:00 [facility]Pt [facility] MR LOWER EXTREMITY 2019-12-27 16:30:00 [place] [facility] - WITHOUT IV CONTRAST [facility] POCT-GLUCOSE METER 2019-12-27 14:06:00 Pat Mohamud [facility] WOUND CULTURE + GRAM 2019-12-27 12:02:00 Annia Delgado [facility] - STAIN [facility] POCT-GLUCOSE METER 2019-12-27 06:44:00 Pat Mohamud [facility] POCT-GLUCOSE METER 2019-12-27 05:49:00 Pat Mohamud [facility] COMPREHENSIVE METABOLIC 2019-12-27 05:05:00 [facility] CBC W/PLT COUNT & AUTO 2019-12-27 05:05:00 [facility] DIFFERENTIAL [facility] HEMODIALYSIS INPATIENT 2019-12-27 00:31:18 Brandie Khan [facility] POCT-GLUCOSE METER 2019-12-26 20:51:00 Cade [facility] TRANSFUSION SERVICE 2019-12-26 18:02:[address] [facility] REPORT - SCAN Scanning [facility] POCT-GLUCOSE METER 2019-12-26 16:42:00 Cade [facility] CT/CTA AAA AND RUNOFF 2019-12-26 15:27:00 Sakina Tamayo [facility] POCT-GLUCOSE METER 2019-12-26 11:59:00 Cade [facility] POCT-GLUCOSE METER 2019-12-26 06:09:00 Cade [facility] COMPREHENSIVE METABOLIC 2019-12-26 04:36:00 [place] [facility] CBC W/PLT COUNT & AUTO 2019-12-26 04:36:00 [facility] DIFFERENTIAL [facility] PREPARE LEUKO-REDUCED RBC 2019-12-25 23:54:00 Brandie Khan [facility] POCT-GLUCOSE METER 2019-12-25 20:51:00 [facility]SF[facility] SERVICE 2019-12-25 18:04:[address] [facility] REPORT - SCAN Scanning [facility] POCT-GLUCOSE METER 2019-12-25 17:01:00 Pat Mohamud [facility] POCT-GLUCOSE METER 2019-12-25 11:25:00 [facility] COMPREHENSIVE METABOLIC 2019-12-25 05:59:[address] [facility] PANEL [facility] CBC W/PLT COUNT & AUTO 2019-12-25 05:59:00 InglewoodLily [facility] S [facility] DIFFERENTIAL [facility] POCT-GLUCOSE METER 2019-12-25 05:58:00 [facility] TRANSFUSE LEUKO-REDUCED 2019-12-24 19:06:[address] [facility] RED BLOOD CELLS [facility] POCT-GLUCOSE METER 2019-12-24 16:15:00 [facility] ABORH, MANUAL 2019-12-24 08:25:00 Jovita Griffith [facility] POCT-GLUCOSE METER 2019-12-24 06:11:00 [facility] TYPE AND SCREEN, 2019-12-24 06:08:00 Brandie Khan [facility] es - AUTOMATED [facility] METABOLIC 2019-12-24 05:51:[address] [facility] PANEL [facility] CBC W/PLT COUNT & AUTO 2019-12-24 05:51:00 JerichoLily [facility] S t [facility] DIFFERENTIAL [facility] POCT-GLUCOSE METER 2019-12-23 21:23:00 [facility] POCT-GLUCOSE METER 2019-12-23 16:42:00 [facility] MR LOWER EXTREMITY JOINT 2019-12-23 15:34:00 Tala Santacruz Sharron hy [facility] ONLY WITHOUT IV CONTRAST [facility] LEFT MR BRAIN WITHOUT IV 2019-12-23 15:34:[address] [facility] CONTRAST [facility] POCT-GLUCOSE METER 2019-12-23 11:16:00 Pat Mohamud [facility] ARTERIAL DOPPLER LEGS 2019-12-23 09:38:[address] [facility] BILATERAL [facility] AMMONIA 2019-12-23 04:05:[address] [facility] COMPREHENSIVE METABOLIC 2019-12-23 04:00:00 In[facility]woodChloeu [facility] CBC W/PLT COUNT & AUTO 2019-12-23 04:00:00 [place] Lily [facility] SARS-COV2/RT-PCR ([facility] & 2019-12-23 03:59:00 Pat Mohamud [facility] - REF [facility] POCT-GLUCOSE METER 2019-12-22 20:34:00 Pat Mohamud [facility] POCT-GLUCOSE METER 2019-12-22 16:43:00 [facility] POCT-GLUCOSE METER 2019-12-22 11:31:00 [facility] POCT-GLUCOSE METER 2019-12-22 06:30:00 Pat Mohamud [facility] COMPREHENSIVE METABOLIC 2019-12-22 05:14:00 [place] [facility] CBC W/PLT COUNT & AUTO 2019-12-22 05:14:00 In[place]woodLily [facility] S [facility] POCT-GLUCOSE METER 2019-12-21 20:26:00 [facility] POCT-GLUCOSE METER 2019-12-21 17:22:00 [facility]ud [facility] POCT-GLUCOSE METER 2019-12-21 12:35:00 [facility] POCT-GLUCOSE METER 2019-12-21 07:20:00 Pat Mohamud [facility] POCT-GLUCOSE METER 2019-12-21 05:52:00 Cade [facility] C-REACTIVE PROTEIN 2019-12-21 04:39:00 Annia Delgado [facility] COMPREHENSIVE METABOLIC 2019-12-21 04:39:00 [place] [facility] CBC W/PLT COUNT & AUTO 2019-12-21 04:39:00 [facility] US ABDOMEN COMPLETE 2019-12-20 21:17:00 [facility] POCT-GLUCOSE METER 2019-12-20 20:23:00 Cade [facility] POCT-GLUCOSE METER 2019-12-20 17:31:00 [facility] BRAIN WITHOUT IV 2019-12-20 16:04:00 JerichoLily [facility] AMMONIA 2019-12-20 14:41:00 [facility] BLOOD GAS, ARTERIAL 2019-12-20 14:28:00 [facility] XR FOOT 2 VIEWS RIGHT 2019-12-20 11:55:[address] [facility] POCT-GLUCOSE METER 2019-12-20 11:28:00 [facility]ade [facility] POCT-GLUCOSE METER 2019-12-20 06:20:00 Cade [facility] OCCULT BLOOD, STOOL 2019-12-20 06:19:00 April [facility] PT/APTT 2019-12-20 05:06:00 April [facility] FIBRINOGEN 2019-12-20 05:06:00 April [facility] D-DIMER 2019-12-20 05:06:00 April Sakina Carrillo [facility] IRON, TIBC, % SAT. 2019-12-20 05:06:[address] [facility] (WITHOUT FERRITIN) [facility] VITAMIN B12 AND FOLATE 2019-12-20 05:06:00 April, Sakina Carrillo [facility] RETICULOCYTE COUNT 2019-12-20 05:06:00 [facility] Carrillo [facility] HAPTOGLOBIN 2019-12-20 05:06:00 [facility] Carrillo [facility] TSH/FREE T4 IF INDICATED 2019-12-20 05:06:00 [facility] Sakina Iqba l [facility] FERRITIN 2019-12-20 05:06:00 April Sakina Carrillo [facility] ANTI-NUCLEAR ANTIBODY 2019-12-20 05:06:00 AprilSakinabal C [facility] (ROGER) [facility] KAPPA / LAMBDA LIGHT 2019-12-20 05:06:00 Sakina Chen [facility], SERUM [facility] PROTEIN ELECTROPHORESIS, 2019-12-20 05:06:00 April Sakina Iqba l [facility] PERIPHERAL BLOOD SMEAR - 2019-12-20 05:06:00 April Sakina Iqba l [facility] - PATHOLOGIST REVIEW [facility] COMPREHENSIVE METABOLIC 2019-12-20 05:06:00 Marcial Chapa [facility] T4, FREE 2019-12-20 05:06:00 April Sakina Carrillo [facility] ROGER TITER AND PATTERN 2019-12-20 05:06:00 Sakina Chenbal C [facility] CBC W/PLT COUNT & AUTO 2019-12-20 05:06:00 Marcial Chapa [facility] POCT-GLUCOSE METER 2019-12-19 20:35:00 Pat Mohamud [facility] POCT-GLUCOSE METER 2019-12-19 16:06:00 Pat Mohamud [facility] HEMODIALYSIS INPATIENT 2019-12-19 16:02:09 Luis Fernandoaf [facility] BASIC METABOLIC PANEL (7) 2019-12-19 05:35:00 Marcial Chapa [facility] LACTATE DEHYDROGENASE 2019-12-19 05:35:00 Sakina Chen [facility] (LDH) [facility] CBC W/PLT COUNT & AUTO 2019-12-19 05:35:00 Marcial Chapa [facility] POCT-GLUCOSE METER 2019-12-19 05:24:00 [facility] POCT-GLUCOSE METER 2019-12-18 21:35:00 [facility]ud [facility] POCT-GLUCOSE METER 2019-12-18 16:05:00 Pat Mohamud [facility] POCT-GLUCOSE METER 2019-12-18 07:45:00 Pat Mohamud [facility] POCT-GLUCOSE METER 2019-12-18 06:14:00 Pat Mohamud [facility] POCT-GLUCOSE METER 2019-12-17 21:44:00 Pat [facility]ud [facility] POCT-GLUCOSE METER 2019-12-17 17:52:00 Pat Mohamud [facility] POCT-GLUCOSE METER 2019-12-17 12:22:00 Pat Mohamud [facility] HEMODIALYSIS INPATIENT 2019-12-17 10:33:08 Brandie Khan [facility] POCT-GLUCOSE METER 2019-12-17 06:18:00 Pat [facility]ud [facility] CBC W/PLT COUNT & AUTO 2019-12-17 04:14:00 Marcial Chapa [facility] COMPREHENSIVE METABOLIC 2019-12-17 04:13:00 Marcial Chapa [facility] POCT-GLUCOSE METER 2019-12-16 20:55:00 Pat [facility]amud [facility] POCT-GLUCOSE METER 2019-12-16 18:24:00 Pat Mohamud [facility] HEPATITIS B SURFACE 2019-12-16 16:02:00 [facility] ANTIBODY [facility] HEPATITIS B SURFACE 2019-12-16 16:02:00 [facility] ANTIGEN [facility] HEPATITIS C ANTIBODY 2019-12-16 16:02:[address] [facility] HEPATITIS B CORE 2019-12-16 16:02:00 [facility] es - ANTIBODY, TOTAL [facility] POCT-GLUCOSE METER 2019-12-16 14:47:00 [facility] IR TUNNELED DIALYSIS 2019-12-16 14:26:[address] [facility] CATHETER [facility] HEMODIALYSIS INPATIENT 2019-12-16 12:37:[address] [facility] POCT-GLUCOSE METER 2019-12-16 11:01:00 [facility] 2019-12-16 05:55:[address] [facility] PORTABLE/BEDSIDE [facility] POCT-GLUCOSE METER 2019-12-16 05:51:00 Pat Mohamud [facility] BASIC METABOLIC PANEL (7) 2019-12-16 04:08:00 Marcial Chapa [facility] PROTHROMBIN TIME/INR 2019-12-16 04:08:00 Marcial Chapa [facility] CBC W/PLT COUNT & AUTO 2019-12-16 04:08:[address] [facility] DIFFERENTIAL [facility] SARS-COV2/RT-PCR ([facility] & 2019-12-16 01:45:[address] [facility] - REF LABS) Medical Center Plan of Care Planned Activity Planned Date Details Comments Source Future Scheduled 2020-12-[address] [facility] 00:[facility]:00 examination Medical Center (regime/therapy) [code = 441089881] Future Scheduled 2020-12-[address] [facility] - Test 00:00:00 malignant neoplasm of [facility] colon (procedure) [code = 553780917] Future Scheduled 2019-11-[address] [facility] - Test 00:00:00 (#1) [code = Medical Center INFLUENZA VACCINE (#1)] Future Scheduled 2017-08-[address] [facility] - Test 00:00:00 measurement Medical Center (procedure) [code = 65174357] Future Scheduled [address] [facility] - Test 00:00:00 (procedure) [code = Medical Center 04274236] Future Scheduled [address] [facility] - Test 00:00:00 malignant neoplasm of [facility] cervix (procedure) [code = 357435958] Future Scheduled 1965 DIABETIC EYE EXAM [facility] - Test 00:00:00 [code = DIABETIC EYE [facility] EXAM] Future Scheduled 1965 Urine screening for [facility] - Test 00:00:00 protein (procedure) [facility] [code = 374143090] Future Scheduled [address] [facility] - Test 00:00:00 malignant neoplasm of [facility] breast (procedure) [code = 672456619] Encounters Start End Encounter Admission Attending Care Care Encounter Source Date/Time Date/Time Type Type Clinicians Facility Department ID 2018-11-17 2018-11-17 [facility] [id number] 11:30[facility]00 11:30:00 [facility] Medicine Outpati ent Clinics 2018-10-06 2018-10-06 [facility] [id number] 16:14:00 16:14:00 [facility] Medicine Medicine Outpati ent Clinics 2018-09-28 2018-09-28 [facility] [id number] 10:30:00 10:30:00 [facility] Medicine Outpati ent Clinics Results Test Description Test Time Test Comments Results Result Comments Source ANAEROBIC CULTURE 2020-01-04 10:26:00 Test Item Value Reference Range Interpretation Comme nts CULTURE (BEAKER) (test code = 1095) No anaerobes isolated Tissue [id number] 10:21:00 Test Item Value Reference Range Interpretation Comments Case Report (test code Surgical Pathology = 104) Report Case: [id number] Authorizing Provider: Tala Santacruz DPM Collected: 12/30/2019 01:38 PM Ordering Location: [address] Med/Surg Received: 12/31/2019 06:52 AM Pathologist: Jovita Griffith MD Specimens: A) - Soft Tissue, Other, left 5th proximal phalanx B) - Metatarsal, Left, left 5th metatarsal DIAGNOSIS (test code = g2ghkVPrDCUzk3qfDIJgnW 3220) FuZzEwMzNcZnRuYmpcdWMx URgniiTqUIiif5CaY3GhTe AwMFxhbnNpXGRlZmxhbmcx JUDvZBO0nrFfRAFeEOsjTD DvOWpgAk1phZCjpStyScLk OYCvz4smvwGFmwqqlHg6v9 fdPNGcQaE2yCNrNNyfL1wn cvFyqRLjKDQxOGz1mT86TZ HacY2qvWPyBXxagvQyFdW4 NJelTYFgFlA8WJDpoMXuXW YeC9vnVXKfUKmfRVQgRSez uTDrSFE4nItgh2O8rBDfaD SkhPgsZrQnItWnSLJMk3Pg BGf8lCqjG8DyKKWqUiI9vP QgUGFyYWdyYXBoIEZvbnQ7 mL49COuvalD1vEVhh4Dtb8 4oe599hZ0bqCChYUT3VLFj YSCkjNMzVWJxSDZ8ZHYelT VhJ6b4McOvbJDlP0J4FwQv kAOjS5U5JqCtsFHvF7I8Cn BgxCLlPYCmcHVzMu4myICb tNJcjx7ktq09YMA0k1YxfN hzCXQ5IED3RpRvVx9tbAZw YAOzNU5oEjCjsFNiQMDaab 59yKpmLFqzrdUatF2lUxSw SLXahPHvUPLtUI9rdEYpMJ XsnY9ikvskJHJvXtNdulko DYFkmTjkreXcBb0lnPgwFA X6BFlzZ4sjtL1sKkR5RViw F6lfgB4nUEw2JTqeaUI2SG XziS0zLC5giprns6zgFlUw TQ6zpaykr9fnKlGrHF4ptz i8l3jxXyJkBF9vwdxuj6jx NzIwXGhlYWRlcnkwXGZvb3 MhtoglBJXjh7LwO5FauJlk A52fiIfrO94jWGGeuRwfpB 4npCoxfU5lVjLyKnCvNJuf bFxwbGFpblxmMVxmczIwXG rojzsrJDUwJGpfB3yvXfHg FILtiWooDVhrc5ArRNAcEV KrVlPdXL7vYm0EVUzsKCCK PEMNUIHLCSRBSu9NDS7KDJ ESZQYNSC5SWIZUVM0AJ7a9 ZSQcxdAmNZPcNKUNQZ7aS9 vXBEYDSiJNBioMEW4HOQUI UlRJTEFHRSBXSVRIIFNVUl UBBB5XGI9FHKMJLYPBWTZP RCBDSFJPTklDIElORkxBTU 1BVElPTlxwYXJccGFyIEIu IEJPTkUsIExFRlQgRklGVE ggTUVUQVRBUlNBTCwgQklP UFNZOlxwYXIgICAgLSBBQ1 KVKVOPZ1VGG51GTQgPHXwB IFxwYXIgICAgLSBTRVBBUk SPECORDtTQIENWUMMgR2Hx ByzMPo2WG12YRZYYSMEHYX MZB0UHNZIFHBBIHVTBD4TE N7QlPS1SW3RLD8hMWSNSKN BHUkFOVUxBVElPTiBUSVNT LBPtOm5APNSCAK0IUYWrwi 23YMR3AyHsc9D3CMO9KQUi EUVft2ztOEPurCUeOgYaRl NcZnRuYmpcdWMxXGRlZmYw u0kzl580xNXlw4avLOYoWn Q3hJXuQFScvXOkL834JRFj LUuqi0hef4KrLCJsiEYqx8 M0IFYHhsrsnQs6pSefN46u d2A3CdouG1ppQUAkCYTwE4 FlYN6wZHInShq1BVW3HES0 RFDbQRHoL6PjZX2nPLKtvX ZxPUx7p1nwnGebIAHqCNI7 h5kmYZgxivLtBN7lkv0wcX t8n2guecApKCWtXXYhzRJI MIDzG1WymLkvRs0dbMj8hJ ccEpfsRQK0Yor2LF3hxb29 etg3lOgeLIQodexhPaM6HS naCQNhnrpoAOi0HBssTJMj nVO4GELegQZoX2RsQMAySG 2fxcj7TBM7KFvhTWRvJmT9 NDBcaGVhZGVyeTcyMFxmb2 48HUJ4MoSsPJ8rV8Bff9Y3 kC2laDYiLINdfOBvQnCbYP Vqde1zyKUcNRonn7SwSRG9 uwC7zNAhuGEcSTLoRiS5GQ gfJT1ugv06HNHfZKT2dv2q bGNccGdicmRyaGVhZFxwZ2 GiRUUoy307FNWaF6VgYDLs n0O3tzApBjFcXDXwhWU7ag D7MNLuDN5uluono8hsMSas ZRmrNPEnocC4asM7JJLatO IsN6AqxG4iEOBpWS0lalmg y0bxYZQ4LCshFFPqMIM8Df GkKRIgb4Zitvn1PmAbv3Tl yLLiLKwiS12bn454NXKhne AjL6zurVSiujeshJMcxjzv SLrrdoI1QWBkSEkhsyuwFN ZvMYllK5fuMjAwKFFouJkt MWhwd3VvFRKeYPPvZsRlcY QaGVFjVkb9POHhoZDzOXPg HyRzN0hbacvwCmYLVYTah7 wvV5jnlNGGlCUmL7NvVVet yoMaSNcvSLweHLW9VDL1Ph 23NlX3NWBnzy31 CPT Code(s) (test code p3wgpBPbEYJsyHQtQyIzNO = 3357) VhXVNfx6uoBVWrjPYwBnKb MzNcZnRuYmpcdWMxXGRlZm Svs1sep304tMQuu4piULGv GwC8hSRhWYRszIJzC064n1 uss1esrzIxfTQ1GFTrMEC0 KVryvhZhtlR3EAarfEOtSv H8ICykthVvXSfmqkFjdpEk Uuc2HIPfZ664HCF2uDlwd0 hwVOC6KXMrBLFxAgGyAg1v sYUuG408BCDuZXPBWXLcaC g0JKDijzOcluVepPVGf573 P905t5toLFJoiuIziYmZlr sku4rtU180ZZQlbHBgiqEv AeYgJHXcbFPkfPN7EACjRM 8cwqmzMaWhWV5gquarMaPz MD0orkl7PeHpIR8zcmhrIw YyOZnbVEZbvfyeDKYip3Zd eidfSE5qG9Sdy5Z0tZ4pxQ CtWJVsgOOdDpPnWNSbka1o kZOdGEooh6JpFZS7smP4pR YhaMAbYZKlEY86Gxxth6Jq FuqiFJS6NDRrjxCwn0Wvk7 tuElViroLiC7rtG5UwPMHv PHJcTJThIbHmyaNbu0Zpb8 XltVXgyBk5h1onCDXjMSGh vHeuc1ekWPD0PYDxD3H1eQ Ffn0fjEXihWVYslCT6vxbj ZVqvGGZwrzW3zhflCMwmUU SkcDZ1bysdMEmqSNXdUnN6 jthqDBmlEIBeUQI7EHxkj8 34CHN6YXbtUrevDOfoOAAl bmNvbnRccGduZGVjXHBsYW luXHBsYWluXGYwXGZzMjRc hVbijXfhuK5qLlSaYbBxWW lgJV8hLWMoP1jezZTwVPVt IKKqJ7agLgLyfP9fvHbsDH knioAeAL6DQ7Z0IJBwleP0 YSQiZiZ4CuxbTLFlSJpeYW EgeDJccGFyfQ== CLINICAL HISTORY (test j4judHAaTAVygXYfMkPaQR code = 3353) ZyQULqi6hpNGAxxWPuMrAd MzNcZnRuYmpcdWMxXGRlZm Plv7ffe102zCCqn7xrCALf OoO9oBCdVIGkhUKhC639g5 xqw2xdfjUpiXA2OVPsWCK8 OWltnzVuvbO8WTmjyXKnQg H9WMrvndKnSTlpoaXfsuHf Zfk7CJGvP207OSU6kHcnj3 jqGAX5IPUxLUVmQtMlDs3n tTYsZ779YLBvGCFETTHzuR f6DVXmbtXkqoPoyZLOh118 G555t7dlFWExeuZpzNsRjp nkv9koE860NEEczKZgowRj NfYaDEQgkODvnHS2NTSsXE 5vzszqWvJlYU2tsrkoPhFh ER3jvjf5UjLjMX6gaklaHw TkZMwzXIDllcaaGJCow2Tr wpdfRT2eE4Ixk1D9oW2azQ GjYCHcdDXxQuIaGZNlfg9y xFBcNFcgh7QrCED6qpK6bS XaeFFkSITgGY70Syxnm1Rw RqjqAZY5TBLhinGrc0Rqj4 dqTwFhzrDlE1stO6YdPFPx FTUbYRNmCnObfuXlp1Tuw9 MpsXSsoCs8s6ogIODgVDAh bPmun0fnBVN2UXBmQ0K6gM Ylt9uiRUoyARDjfSM2fxvp EMmxXSErksQ5mjirDZfpHJ DpoFW3gbisQDbrEIDrRyB6 dvdvMRnsZVZkAMO3HLpii5 70ECK2DZkhXhraFDsyVUTj bmNvbnRccGduZGVjXHBsYW luXHBsYWluXGYwXGZzMjRc eHzkkZwpwA1lPeCkJzKdAM hyFH2lHJPkY1xpbRTsKQPz KMGpC5zwByEesP7jlZmeRI qxlmIsYB4qaKQezIgbfGr2 tMLps0LvrJYdyCW8kSqzeO V6BTAcvhTiiDcouXezZSXc x4PlPgugWKEtwhTfHBUkXN RccGFyfQ== SPECIMEN SOURCE (test h3ewiPGsIXBxeAAiXtLtWW code = 3377) NdQVOxx6hlIZJafHQpTtWn MzNcZnRuYmpcdWMxXGRlZm Ftf0sfs468uPXhc1cwATRa NnI9zPYgLXMjdHYpB651r6 ock6ywkmMcvLG6AUSrEUV9 LOaildHhopO5VWieoFUlNi K8ZBahvjEpETgynoWqhiAo Bez9OUOfN877OFT1aXwuy8 zcLTG1QRQfIENzTuXlRf0w hMJxN516MYJjMVNOHYSyoR q0AVUlynCkcpWoiRGUv898 Z065g6gbWFJyfjTcuTlZyh djl5smD726NCVosJTnadCv FcKgASVigJDxrEZ8UWOlJW 2jeffgHtZhNB5imjqcDcHb YN5zahc9XoKzBY1wddtfLu MoCDibBJQdzjudZDEhy9Fq jpcdBW5xT1Ntf1J3wD0tkC BvJUPlePDvWeNeRPEyuc4s qYVgIFpfk2DgLKA6dmN0mZ KgpAQoLUVjRR86Qzxos6Ni AjkcUZK0IORpteJge6Ikw5 rwRtKtzrJvB6cvB6DnAFQa MRAsPDYmPvDpaxWgq4Rmy5 ZwgFIriCc6s1maSKLiVHCq fRkjk4coTWK7OOWjZ7Y7gS Mav0hoDIlwMYJumRY2yojk OEqhIJAduyI0nqfkKZnwVP DtsEN2rjbrTFcuNKGuCxG4 ovqlGMyuJINiRQU7FVzeh5 53JDS1REihUhuwFDziMMGc bmNvbnRccGduZGVjXHBsYW luXHBsYWluXGYwXGZzMjRc hKgzcShxqC4tWqGvUeRfNM tfZN8vZCWrU4ziaOHbDGHc TAFqK9xpOvOpxA2ncJtrOC xmczIwIEEuIExlZnQgNXRo HVXrb8ldpTFuXMPiWFnbkl ryGZXaLResGjGrZFYeSI2b iMH8YWCiLVfdLYYxdw1= GROSS DESCRIPTION (test u5yzsPKiGPJwvHIoKrMeHR code = 3366) WmEDGhr1igKRQcxQJfOvQo MzNcZnRuYmpcdWMxXGRlZm Nbi7qao778oJKyo1tgUVVp QoG6jOSuPUZlhNZcE608PB OmOJkzn1qyo8EdIPMnoBZb i6W1LBAZkhijpBq7rGjoD0 7kh0Q4IyinJ3fxTQVaSUKo H4CsBO0fPUHxHie7BZH7MV I7UFPxRKDuW3BaFB5iZKPu bWQhHXj5j8eubNolFEYkOW M2r1jtRObweyHvBB1sma7p mRl3a6fqhxKcJULuTWYfnO IUUESaH0OcoZniCs5hvUg6 pApnMdnfGAM4Lbp4HD3ill 81ief5iMhqAORqjgbkXmN2 INggGDSfnhabJKl7LYdkFG JnbDcyMFxtYXJncjcyMFxt YXJndDcyMFxtYXJnYjcyMF kdYCZeGWM9LGryv656ZYE6 PXcrx2kxe3ksoKTfWxv4MM VpWhWhKxrzFEwme3Xnj9un IGZthh9oGDC1pAEixWpqb8 Y4eYYoDXUqqGAdzdPjLJXi QnX9ZDdvDH4hjb80JKCxIO M5wx0pmODruEvoodVtrXFt ZKaxJ4YgWWRkq712YYSzL3 SsAHChh9Z9mqZeZbKnNKPa oVK0fsP1DHMeXSz7uNPejl X2jzQrlGCsL7bqhS45EbHc hBZrP9FstE43MwFidTHjW4 QedV16GoEwdAWtG6FuhR53 InXdgYXxKXLteYYaIi0cuV KutPUma2IggFDvTIqaU15f g331MZSlirFhS2fuiHNtgr buuIDrdfjcTPbkypU3TPNf XHBsYWluXGYwXGZzMjBcbG FuZzEwMzNcaGljaFxmMFxk EgYwEJNjIUplD7mgTtVwJy RyZGSBoWMqlK2sgeHSLLtl LMLmI2RxrlTnSWziPPXscY D4tMUcZYbrUdKxSLMlp8n2 rFB4vVCsiMA5uJUubTcaHD 6taLEcDN1nAE9mACucIOzt wwZbm7RhOZ93uZSxouLyga QgZGVzaWduYXRlZCBhcyAi m48dtED7lQOjcTRuHH14nG RoOlnvX20ud4sljIHob7Xg b4lxpUIsuCGsiN73XONzjd NuCtMhN16szlPuEB3hABB1 cmluZyAwLjcgeCAwLjMgeC FxNiLrO17yRZCkVQTmxTFq tR8jmvBtusRhoYXbzFD8TK SpRS93xOKumSqukY58okVG TJKwowQvcF92oyGhUBVmdD Jsh6h2oRiwwx5rkXZtETKl bgWBeHTfzX5cabEQOPylCJ StO5CodsXuULerLXDyfLR7 pRWmTEjlIeFlBCUnt4y6dK H8hABwkVJ7jLJkeUapQP9c aCNtQM9bYL7jJDhjDSafpm Ong7OhZL74rDCqolDfcfEd ZGVzaWduYXRlZCBhcyAibW B0KRNkrqRhpSVnJDT1Higz Y97pn0dqdSXbz9WbHu84av MfLZYvEbApg24zcDnec7Pz UFPnQEIhq87gWOAeKHohNT 70jwOsDJYrkFNxuizzPq7a LAhgVO66ZYzhNM61ATDoWH tvVFHvB2BpM0E5EL5qeHjb IHNwZWNpbWVuIGlzIGVudG spPPv0VGscjTNqwwvkHCeq czIwXGxhbmcxMDMzXGhpY2 gvSlXuNMBspYfrMEpva5Dx LFIhLMZoPrRbGcSzQM2wWQ gpuU4aGEPrRNirg78mbQGa b88kYLBkMPubLZAmLMTuIc BcbGFuZzEwMzNcaGljaFxm YVloKgPtWATzRZjoD5ksVg BcZnMyMCAgTUcvZXdccGFy fQ== MICROSCOPIC DESCRIPTION b1drfCGvNQDsmUIgZbEpWZ (test code = 3371) TiDPIxh5fwIBLdgJUbQzIi MzNcZnRuYmpcdWMxXGRlZm Jfs0qrn985wHLoa0rnGYAq SiW8rVOmCNVpnHIbW457q2 wiz8zbcxUdePM3CGZpDQU0 OTgzvcCeqqB5KGjhbCGsWy O3UKdeufYgKUngroXopaYp Wpm7CRZpL665MUY2qLumo8 tiEKA2HNFbIXHoYnNzIm3s rAVtA754BWIwFHDWWZHicJ v5PAFluaAvzwSuiLWXo899 F515j3ihGKFitoAcvLjXlp ais2gnS408TNNzlGRozmNf GmZyRXYouHYynZU8YSKpSB 1glrvtIrEsHT8flpumMiWy XY9guta9ZuGyUZ9tklnpYx EbBTyaWFMeolxuJZLwz6Ts pyltJR4qD1Mpa6K0tP9fwI MxGBHcwUIrIsDwQGVddt7s hUGgHRyzp2QjNOT7qjU8lD RdcUPuBANvOF85Kklsj7Mk NfqdSND1ZOQuawIfz8Frv0 yoVgJsnwKgQ7obF5UcGPCq WPHdONApYzPwvxHtg8Ums9 ZfzZOieRy3j1dqDTWrVNGk qEgti4ehTWO9DSWzT4E9qF Cco6uuFNxtIXJcrMX3pyti HHzaSJGiayH6bekuRMsmQE IxyAQ4axlwVYqmFVQmEnT3 gqahFMveTZSmMOP7UMxec0 93ZOH2MGbjDssyRKnzIRXh bmNvbnRccGduZGVjXHBsYW luXHBsYWluXGYwXGZzMjRc kVilgYxwdE3wYjLiClIaDE avBV1sFDWwB6gqkCSwZWZh TSKaC0ewWzPycX6qtLcbCR egebRkPPHuQr5iFDFsTu4w bWVkLlxwYXJ9 Gross assessment was [facility] performed at ([facility], Department = 2777) of Pathology, [address] [place] [address], Technical component was [facility] performed at ([facility], = 2778) Department of Pathology, [address] [place] [address], Professional component [facility] was performed at [facility], Department code = 2779) of Pathology, [address] [place] [address], [facility] [id number] 10:21:00Surgical Pathology Report Case: [id number] Authorizing Provider: Tala Santacruz DPM Collected: 12/30/2019 01:38 PM Ordering Location: [address] Med/Surg Received: 12/31/2019 06:52 AM Pathologist: [...] TISSUE FORMATION Signing Pathologist Direct Phone Line: [phone] signed by Jovita Griffith MD on 01/04/2020 at 10:21 AMMG/[id number] m2Eenedvanznhnh of left 5th metatarsal, ulcer of bilateral [...] and into decal solution. MG/Veronica-B. Performed.[facility], Department of Pathology, [address] [place] [address], [facility], Department of Pathology, [address] [place] [address], [facility], Department of Pathology, [address] [place] [address], FGIHDZJYU [id number] 10:47:00 Test Item Value Reference Interpretation Comments [...] negative Staphylococcus SURGICALLY OBTAINED CULTURE + GRAM [id number] 08:31:00 Test Item Value Reference Range Interpretation Comments CULTURE (BEAKER) (test code No growth = 1095) GRAM STAIN RESULT (BEAKER) <1+ WBCs (test code = 1123) GRAM STAIN RESULT (BEAKER) No organisms seen (test code = 57039) SURGICALLY OBTAINED CULTURE + GRAM [id number] 08:19:00 Test Item Value Reference Interpretation Comments Range CULTURE (BEAKER) STENOTROPHOMONAS A 2+ Sten otrophomonas (test code = 1095) MALTOPHILIA maltophil ia Levofloxacin (test S code = 22) Trimethoprim + S Sulfamethoxazole (test code = 47) GRAM STAIN RESULT <1+ WBCs (BEAKER) (test code = 1123) GRAM STAIN RESULT No organisms seen (BEAKER) (test code = 968184) POC-Glucose [id number] 06:47:00 Test Item Value Reference Range Interpretation Comments POC-Glucose Meter (test 102 mg/dL 70-110 : TE STED AT [facility] code = 1538) [address] [facility] [address]: Senior Staff Specialized Employment/Techni artemio ID = [id number] for Anne Salgado Lab Interpretation (test Normal code = 01780-4) [facility] [id number] 06:47:00 Test Item Value Reference Range Interpretation Comments POC-GLUCOSE METER 102 mg/dL 70-110 : TESTED A T [facility] 1317 (BEAKER) (test code [facility], = 1538) [facility] 77 478: Senior Staff Specialized Employment/Techni artemio ID = [id number] for Ashley austin Anne Comprehensive metabolic [id number] 06:34:00 Test Item Value Reference Range Interpretation Comments Protein, Total (test 6.1 6.0- 8.5 gm/dL code = 2885-2) Albumin (test code = 2.3 g/dL 3.5-5 L 08016-0) Alkaline Phosphatase 81 U/L 30-115 (test code = 6768-6) Total Bilirubin (test 0.4 mg/dL 0.1-1.2 code = 1975-2) Sodium (test code = 137 meq/L 261-763 4526-2) Potassium (test code = 3.7 meq/L 3.6-5.5 2823-3) Chloride (test code = 100 meq/L 98-106 2075-0) CO2 (test code = 28 meq/L 20-29 8-9) BUN (test code = 14 mg/dL - 3094-0) Creatinine (test code 2.31 mg/dL 0.5-1.2 H = 2160-0) Glucose (test code = 100 mg/dL 70-110 2345-7) Calcium (test code = 7.5 mg/dL 8.5-10.5 L 63157-3) AST (test code = 15 U/L 5-40 1920-8) ALT (test code = 6 U/L 5-50 1742-6) EGFR (test code = 21 mL/min/1.73 [place] [address]-2) NOT ACCURATE CREATININE CLEARANCE IN PREDICTING GLOMERULAR FILTRATION RATE . ESTIMATED GFR I S NOT APPLICABLE FOR DIALYSIS PATIENTS. ZIA (test code = ZIA) Senior Staff Specialized Employment ID - ADMIN Lab Interpretation Abnormal (test code = 58951-9) [facility] CenterCOMPREHENSIVE METABOLIC [id number] 06:34:00 Test Item Value Reference Range Interpretation [...] S NOT APPLICABLE FOR DIALYSIS PATIEN TS. Senior Staff Specialized Employment ID - ADMINCBC with platelet count + automated [id number] 06:06:00 Test Item Value Reference Range Interpretation [...] K/CU MM L MPV (test code = 25041-3) 10.5 fL 6-11.5 nRBC (test code = [...] 2801) Lab Interpretation (test code = Abnormal 97526-6) [facility] Center[facility]/PLT COUNT & AUTO [id number] 06:06:00 Test Item Value Reference Range Interpretation [...] PERCENT (BEAKER) (test code = 2801) POCT-GLUCOSE [id number] 21:02:00 Test Item Value Reference Range Interpretation Comments POC-GLUCOSE METER 167 mg/dL 70-110 H : TESTED A T [facility] 1317 (BEAKER) (test code [address], = 1538) [place] [id number]: Senior Staff Specialized Employment/Techni artemio ID = [id number] for Anne Busby POCT-GLUCOSE [id number] 18:12:00 Test Item Value Reference Range Interpretation Comments POC-GLUCOSE METER 121 mg/dL 70-110 H : TESTED A T [facility] [address] (BEAKER) (test code [facility], = 1538) [place] [address]: Senior Staff Specialized Employment/Techni artemio ID = [id number] for Cortney Cohen POCT-GLUCOSE [id number] 11:54:00 Test Item Value Reference Range Interpretation Comments POC-GLUCOSE METER 117 mg/dL 70-110 H : TESTED A T [facility] [address] (BEAKER) ([facility] [address], = [facility]) [place] [address]: Senior Staff Specialized Employment/Techni artemio ID = [id number] for Oneidakey glynnvera Aydinrianar COMPREHENSIVE METABOLIC [id number] 06:47:00 Test Item Value Reference Range Interpretation [...] S NOT APPLICABLE FOR DIALYSIS PATIEN TS. Senior Staff Specialized Employment ID - [id number] 06:42:00 Test Item Value Reference Range Interpretation Comments Magnesium (test code = 1.6 mg/dL 1.5-3 49547-5) ZIA (test code = ZIA) Senior Staff Specialized Employment ID - ADMIN Lab Interpretation (test Normal code = 93418-9) [facility] [id number] 06:42:00 Test Item Value Reference Range Interpretation Comments POC-GLUCOSE METER 101 mg/dL 70-110 : TESTED A T [facility] [address] (BEAKER) (test code [facility] [address], = 1538) [facility] [place] [address]: Senior Staff Specialized Employment/Techni artemio ID = [id number] for Anne Busby [id number] 06:42:00 Test Item Value Reference Range Interpretation Comments MAGNESIUM (BEAKER) (test code = 1.6 mg/dL 1.5-3.0 627) Senior Staff Specialized Employment ID - ADMINCBC W/PLT COUNT & AUTO [id number] 06:37:00 Test Item Value Reference Range Interpretation [...] PERCENT (BEAKER) (test code = 2801) POCT-GLUCOSE [id number] 20:24:00 Test Item Value Reference Range Interpretation Comments POC-GLUCOSE METER 155 mg/dL 70-110 H : [facility] (test code [facility] [address], = 1538) [facility] [address]: Senior Staff Specialized Employment/Techni artemio ID = [id number] for Anne Busby POCT-GLUCOSE [id number] 16:39:00 Test Item Value Reference Range Interpretation Comments POC-GLUCOSE METER 164 mg/dL 70-110 H : Notified RN/MD: TESTED (SERVANDOAKER) (test code AT [facility] [address] = 1538) [place] [address]: Senior Staff Specialized Employment/Techni artemio ID = [id number] for Alondra Kelley SARS-CoV2/RT-PCR (Asymptomatic ONLY)2019-12-30 15:57:00 Test Item Value Reference Range Interpretation Comments SARS-COV2/RT-PCR Negative Not Detected, (test code = Negative, See 17064-2) external report for linked test SARS-COV-2 [facility] PERFORMING LAB (test code = 40692-2) ZIA (test code = Negative result for [...] of the Act. Fact Sheet for Healthcare Providers:https://www.liveBooks.Ease My Sell/sites/default/f loco/product/documents/F act_Sheet_HC_Providers_L gjo_JXNN-ZpF-3.pdf Fact Sheet for Healthcare Patients:https://www.Haowj.com/sites/default/fi les/product/documents/Fa ct_Sheet_Patients_Lyra_S ARS-CoV-2.pdf Performing Laboratory:[facility] [place] [address] [facility] ([facility])2019-12-30 15:57:00 Test Item Value Reference Range Interpretation Comments SARS-COV2/RT-PCR (test Negative Not Detected, Negative, code = 6172749) See external report for linked test SARS-COV-2 PERFORMING LAB [facility] JANET (test code = 0293070) Negative result for this test determines that [...] 564(g) of the Act.Fact Sheet for Healthcare Providers:https://www.GlySure/sites/default/files/product/documents/Fact_Shee c_XV_Arhselwfa_Ybfm_NKVR-AwY-2.pdfFact Sheet for Healthcare Patients:https://www.GlySure/sites/default/files/product/ documents/Nvpk_Vbqpd_Mpcchjfe_Glxw_TCCI-ZjU-8.pdfPerforming Laboratory:[facility], [place] [address]SCNW-RBCXGWK METER 2019-12-30 11:50:00 Test Item Value Reference Range Interpretation Comments POC-GLUCOSE METER 82 mg/dL 70-110 : Notified RN/MD: TESTED (BEAKER) (test code = AT [facility] [address]) [place] [address]: Senior Staff Specialized Employment/Techni artemio ID = [id number] for Alondra Kelley WOUND CULTURE + GRAM [id number] 10:45:00 Test Item Value Reference Interpretation Comments [...] gram negative (BEAKER) (test code rods = 677384) POCT-GLUCOSE [id number] 05:50:00 Test Item Value Reference Range Interpretation Comments POC-GLUCOSE METER 103 mg/dL 70-110 : Notified RN/MD: TESTED (BEAKER) ([facility] [address] = 1538) [place] [address]: Senior Staff Specialized Employment/Techni artemio ID = [id number] for Zonia Healy COMPREHENSIVE METABOLIC [id number] 05:44:00 Test Item Value Reference Range Interpretation [...] S NOT APPLICABLE FOR DIALYSIS PATIEN TS. Senior Staff Specialized Employment ID - ADMINCBC W/PLT COUNT & AUTO [id number] 05:29:00 Test Item Value Reference Range Interpretation [...] PERCENT (BEAKER) (test code = 2801) POCT-GLUCOSE [id number] 21:21:00 Test Item Value Reference Range Interpretation Comments POC-GLUCOSE METER 185 mg/dL 70-110 H : Notified RN/MD: TESTED (BEAKER) (test code AT [address] PO[address] = 1538) JAYNAJoe [facility] [address]: Senior Staff Specialized Employment/Techni artemio ID = [id number] for Zonia Healy POCT-GLUCOSE [id number] 11:21:00 Test Item Value Reference Range Interpretation Comments POC-GLUCOSE METER 143 mg/dL 70-110 H : Notified RN/MD: TESTED (BEAKER) (test code AT [facility] [address] = 1538) [place] [address]: Senior Staff Specialized Employment/Techni artemio ID = [id number] for Alondra Kelley COMPREHENSIVE METABOLIC [id number] 06:27:00 Test Item Value Reference Range Interpretation [...] S NOT APPLICABLE FOR DIALYSIS PATIEN TS. Senior Staff Specialized Employment ID - ADMINPOCT-GLUCOSE [id number] 06:21:00 Test Item Value Reference Range Interpretation Comments POC-GLUCOSE METER 73 mg/dL 70-110 : Notified RN/MD: TESTED (BEAKER) (test code = AT [facility] [address]) [place] [address]: Senior Staff Specialized Employment/Techni artemio ID = [id number] for Zonia Healy CBC W/PLT COUNT & AUTO [id number] 06:00:00 Test Item Value Reference Range Interpretation [...] PERCENT (BEAKER) (test code = 2801) POCT-GLUCOSE [id number] 20:48:00 Test Item Value Reference Range Interpretation Comments POC-GLUCOSE METER 84 mg/dL 70-110 : Notified RN/MD: TESTED (BEAKER) (test code = AT [facility] L [address]) [place] [address]: Senior Staff Specialized Employment/Techni artemio ID = [id number] for Zonia Healy POCT-GLUCOSE [id number] 17:51:00 Test Item Value Reference Range Interpretation Comments POC-GLUCOSE METER 59 mg/dL 70-110 L : TESTED A T [facility] [address] (BEAKER) (test code = [address] [facility], 153) [place] [address]: Senior Staff Specialized Employment/Techni artemio ID = [id number] for Christina r, Berta POCT-GLUCOSE [id number] 13:28:00 Test Item Value Reference Range Interpretation Comments POC-GLUCOSE METER 67 mg/dL 70-110 L : TESTED A T [facility] [address] (BEAKER) (test code = [address] [facility], 153) [place] [address]: Senior Staff Specialized Employment/Techni artemio ID = [id number] for Christina r, Berta POCT-GLUCOSE [id number] 06:04:00 Test Item Value Reference Range Interpretation Comments POC-GLUCOSE METER 94 mg/dL 70-110 : TESTED A T [facility]17 (BEAKER) (test code = [address] [facility], 153) [place] [address]: Senior Staff Specialized Employment/Techni artemio ID = [id number] for Anahi Sherman COMPREHENSIVE METABOLIC [id number] 05:35:00 Test Item Value Reference Range Interpretation [...] S NOT APPLICABLE FOR DIALYSIS PATIEN TS. Senior Staff Specialized Employment ID - ADMINCBC W/PLT COUNT & AUTO [id number] 04:56:00 Test Item Value Reference Range Interpretation [...] PERCENT (BEAKER) (test code = 2801) POCT-GLUCOSE [id number] 20:43:00 Test Item Value Reference Range Interpretation Comments POC-GLUCOSE METER 137 mg/dL 70-110 H : TESTED A T [facility] (BEAKER) (test code [address], = 1538) [facility] [address]: Senior Staff Specialized Employment/Techni artemio ID = [id number] for Math ew, Anahi MR, EXTREMITY, LOWER, WITHOUT CONTRAST, [id number] 16:55:00MRI LEFT FOOT.Unlisted Reason for Exam - [...] MDReport Verified Date/Time: 12/27/2019 16:55:07 Reading Location: [facility] Radiology Reading Room MR lower extremity without IV contrast left [id number] 16:55:00Interface, External Ris In - 12/27/2019 4:57 [...] in the first metatarsal remnant. Signed: [facility] Verified Date/Time: 12/27/2019 16:55:07 Reading Location: [facility] Radiology Reading Room Electronically signed by: Adrienne CHU 12/27/2019 04:55 [facility] [id number] 14:19:00 Test Item Value Reference Range Interpretation Comments POC-GLUCOSE METER 232 mg/dL 70-110 H : TESTED A T [facility] 1317 (BEAKER) (test code [address], = 1538) [facility] [address]: Senior Staff Specialized Employment/Techni artemio ID = [id number] for Berta Servin, CTA AAA, W/ GÓMEZ.EXT.[id number] 11:38:00Bilateral lower extremities Addendum BeginsREPORT STATUS:A I agree with the nonvascular findings with exceptions and emphasis as below:*Moderate right and small left pleural effusions are partially visualized.*Large volume ascites.*Diffuse anasarca*The reflux of contrast into the hepatic veins is concerning for volume overload. Signed: Molly Linares MDReport Verified Date/Time: 12/27/2019 11:38:28 Reading Location: [facility] Diagnostic Imaging Reading Room - [place] [address] [address] angiography of the abdominal aorta and runoff, 26-Dec-19 INDICATION: This is a 64 year old female with with lower leg penetrating trauma presents for assessment. TECHNIQUE: Spiral acquisition before and during intravenous contrast administration using a Mimix Broadband multidetector CT scanner. Images were obtained before [...] identified. However, significant calcification identified of the [place] left SFA, for example at [...] the right popliteal artery is patent, with ztoi-dn-waafyfae diffuse calcification identified with no obstructive lesion [...] However, in the distal left SFA, the [place] artery substantial calcification identified and [...] atherosclerosis identified. 4. In the right, the [place] right SFA is not filled [...] dictated regarding the non-vascular findings by the Quarter Supervisor Radiologist. Signed: Shlomo Dockery MDReport Verified Date/Time: 12/27/2019 07:59:51 Reading Location: [place] [address] [address] Reading Room Protein electrophoresis, serum 2019-12-27 [...] monoclonal bands detected. Pathologist: (test code Rocio aGlindo, = 4256) (electronic signature) Protein, Total (test 6.3 6.0- 8.3 gm/dL code = 2660) ZIA (test code = ZIA) Senior Staff Specialized Employment ID - LEONIE Jay Lab Interpretation (test Abnormal code = 61616-4) [facility], [id number] 09:29:00 Test Item Value Reference Range Interpretation [...] chronic inflammatory response. No monoclonal bands detected. [id number]-010 Rocio Galindo MD (BEAKER) (test code = (electronic signature) 2616) PROTEIN TOTAL SERUM, 6.3 gm/dL 6.0-8.3 SPEP (BEAKER) (test code = 2660) Senior Staff Specialized Employment ID - [place] FCTA AAA and [id number] 07:59:00Interface, External Ris In - 12/27/2019 11:40 AM CDTAddendum BeginsREPORT STATUS:A I agree with the nonvascular findings with exceptions and emphasis as below:*Moderate right andsmall left pleural effusions are partially visualized.*Large volume ascites.*Diffuse anasarca*The reflux of contrast into the hepatic veins is concerning for volume overload. Signed: Molly Linares MDReport Verified Date/Time: 12/27/2019 11:38:28 Reading Location: [facility] Diagnostic Imaging Reading Room - [place] [address] [address] REPORT CT angiography of the abdominal aorta and runoff, 26-Dec-19 INDICATION: This is a 64 year old female with with lower leg penetrating trauma presents for assessment. TECHNIQUE: Spiral acquisition before and during intravenous contrast administration using a Mimix Broadband multidetector CT scanner. Images were obtained before [...] identified. However, significant calcification identified of the [place] left SFA, for example at [...] the right popliteal artery is patent, with pgpe-dc-smzqeluq diffuse calcification identified with no obstructive lesion [...] However, in the distal left SFA, the [place] artery substantial calcification identified and [...] atherosclerosis identified. 4. In the right, the [place] right SFA is not filled [...] dictated regarding the non-vascular findings by the Quarter Supervisor Radiologist. Signed: Shlomo Dockery MDReport Verified Date/Time: 12/27/2019 07:59:51 Reading Location: [place] [address] [address] Reading Room [facility] [id number] 06:56:00 Test Item Value Reference Range Interpretation Comments POC-GLUCOSE METER 39 mg/dL 70-110 LL : Notified RN/: TESTED (BEAKER) (test code = AT [address]) [facility] [address]: Senior Staff Specialized Employment/Techni artemio ID = [id number] for Anahi Sherman COMPREHENSIVE METABOLIC [id number] 06:15:00 Test Item Value Reference Range Interpretation [...] S NOT APPLICABLE FOR DIALYSIS PATIEN TS. Senior Staff Specialized Employment ID - ADMINPOCT-GLUCOSE [id number] 06:01:00 Test Item Value Reference Range Interpretation Comments POC-GLUCOSE METER 55 mg/dL 70-110 L : Notified RN/MD: TESTED (BEAKER) (test code = AT [address]LS [address]) [facility] [address]: Senior Staff Specialized Employment/Techni artemio ID = [id number] for Anahi Sherman CBC W/PLT COUNT & AUTO [id number] 05:44:00 Test Item Value Reference Range Interpretation [...] PERCENT (BEAKER) (test code = 2801) POCT-GLUCOSE [id number] 21:03:00 Test Item Value Reference Range Interpretation Comments POC-GLUCOSE METER 278 mg/dL 70-110 H : Notified RN/MD: TESTED ([facility]) (test code AT [facility] [address] = 1538) [place] [address]: Senior Staff Specialized Employment/Techni artemio ID = [id number] for Anahi Sherman POCT-GLUCOSE [id number] 16:53:00 Test Item Value Reference Range Interpretation Comments POC-GLUCOSE METER 70 mg/dL 70-110 : TESTED A T [facility] 1317 ([facility]) (test code = [address] [facility], 153) [place] [address]: Senior Staff Specialized Employment/Techni artemio ID = [id number] for Nalini Jean Baptiste POCT-GLUCOSE [id number] 12:11:00 Test Item Value Reference Range Interpretation Comments POC-GLUCOSE METER 97 mg/dL 70-110 : TESTED A T [facility] 1317 ([facility]) (test code = [address] [facility], 153) [place] [address]: Senior Staff Specialized Employment/Techni artemio ID = [id number] for Akhil hurtado, Rachelleea POCT-GLUCOSE [id number] 06:21:00 Test Item Value Reference Range Interpretation Comments POC-GLUCOSE METER 71 mg/dL 70-110 : [facility] (test code = [address] [facility], 153) [place] [address]: Senior Staff Specialized Employment/Techni artemio ID = [id number] for Kolby Alamol COMPREHENSIVE METABOLIC [id number] 05:50:00 Test Item Value Reference Range Interpretation [...] S NOT APPLICABLE FOR DIALYSIS PATIEN TS. Senior Staff Specialized Employment ID - ADMINCBC W/PLT COUNT & AUTO [id number] 05:17:00 Test Item Value Reference Range Interpretation [...] (BEAKER) (test code = 2801) Prepare Leuko-Red [id number] 23:54:00 Test Item Value Reference Range Interpretation Comments CROSSMATCH (test code = 2264) COMPATIBLE Unit ABO (test code = O Pos 7764602) UNIT NUMBER (test code = [id number] 934-0) Status (test code = 5114704) TX_TIMEINCHART Blood Bank Product (test code RED BLOOD CELLS = 2263) PRODUCT CODE (test code = W0479K56 933-2) [facility] [id number] 21:03:00 Test Item Value Reference Range Interpretation Comments POC-GLUCOSE METER 87 mg/dL 70-110 : TESTED A T [facility] [address] (BEAKER) (test code = [address], 15[address]) [place] [address]: Senior Staff Specialized Employment/Techni artemio ID = [id number] for Nwjanis iufuKolbyl POCT-GLUCOSE [id number] 17:12:00 Test Item Value Reference Range Interpretation Comments POC-GLUCOSE METER 79 mg/dL 70-110 : TESTED A T [facility] (BEAKER) (test code = [address], 15[address]) [place] [address]: Senior Staff Specialized Employment/Techni artemio ID = [id number] for Nalini Jean Baptiste POCT-GLUCOSE [id number] 11:37:00 Test Item Value Reference Range Interpretation Comments POC-GLUCOSE METER 262 mg/dL 70-110 H : TESTED A T [facility] (BEAKER) (test code [address], = 1538) [place] [address]: Senior Staff Specialized Employment/Techni artemio ID = [id number] for Nalini Jean Baptiste COMPREHENSIVE METABOLIC [id number] 06:29:00 Test Item Value Reference Range Interpretation [...] S NOT APPLICABLE FOR DIALYSIS PATIEN TS. Senior Staff Specialized Employment ID - ADMINCBC W/PLT COUNT & AUTO [id number] 06:12:00 Test Item Value Reference Range Interpretation [...] PERCENT (BEAKER) (test code = 2801) POCT-GLUCOSE [id number] 06:09:00 Test Item Value Reference Range Interpretation Comments POC-GLUCOSE METER 83 mg/dL 70-110 : Notified RN/MD: TESTED (BEAKER) (test code = AT [facility] L [address]) [place] [address]: Senior Staff Specialized Employment/Techni artemio ID = [id number] for Anahi Sherman POCT-GLUCOSE [id number] 16:26:00 Test Item Value Reference Range Interpretation Comments POC-GLUCOSE METER 182 mg/dL 70-110 H : Notified RN/MD: TESTED (BEAKER) (test code AT [facility] [address] = 1538) [place] [address]: Senior Staff Specialized Employment/Techni artemio ID = [id number] for Alondra Kelley, [id number] 09:17:00 Test Item Value Reference Range Interpretation Comments Rh Factor (test code = POS 2589) ABO Grouping (test code O PINK TOP 12/24/19 @ 0824 = 2588) [facility] CenterType and screen, [id number] 07:31:00 Test Item Value Reference Range Interpretation Comments ABO/RH AUTOMATED (BEAKER) (test O POSITIVE ECHO code = 2260) Ab Scrn (test code = 890-4) NEGATIVE ECHO [facility] [id number] 06:42:00 Test Item Value Reference Range Interpretation [...] S NOT APPLICABLE FOR DIALYSIS PATIEN TS. Senior Staff Specialized Employment ID - ADMINPOCT-GLUCOSE [id number] 06:23:00 Test Item Value Reference Range Interpretation Comments POC-GLUCOSE METER 88 mg/dL 70-110 : TESTED A T [facility] [address] (BEAKER) (test code = [address], 1538) [facility] [address]: Senior Staff Specialized Employment/Techni artemio ID = [id number] for Anne Busby CBC W/PLT COUNT & AUTO [id number] 06:23:00 Test Item Value Reference Range Interpretation [...] PERCENT (BEAKER) (test code = 2801) POCT-GLUCOSE [id number] 21:38:00 Test Item Value Reference Range Interpretation Comments POC-GLUCOSE METER 126 mg/dL 70-110 H : TESTED A T [facility] [address] (BEAKER) (test code [address], = 1538) [facility] [address]: Senior Staff Specialized Employment/Techni artemio ID = [id number] for Anne Busby POCT-GLUCOSE [id number] 16:54:00 Test Item Value Reference Range Interpretation Comments POC-GLUCOSE METER 89 mg/dL 70-110 : Notified RN/MD: TESTED (ROBERT) (test code = AT SLS L [address]) PKY, [facility] [address]: Senior Staff Specialized Employment/Techni artemio ID = [id number] for Alondra Kelley MR, EXTREMITY, LOWER, JOINT, WITHOUT CONTRAST, [id number] 16:10:00Unlisted Reason for Exam - Click Yes [...] Jordanort Verified Date/Time: 12/23/2019 16:10:32 Reading Location: [facility] B1 C013X Ortho Consult Reading Room MR lower extremity joint only without IV contrast left [id number] 16:10:00Interface, External Ris In - 12/23/2019 4:12 [...] MDReport Verified Date/Time: 12/23/2019 16:10:32 Reading Location: [facility] C013X Ortho Consult Reading Room [facility], [facility]RAIN, WITHOUT [id number] 15:43:00Unlisted Reason for Exam - Click Yes [...] Date/Time: 12/23/2019 15:43:24 MR brain without IV [id number] 15:43:00Interface, External Ris In - 12/23/2019 3:45 [...] Signed: Berta Muniz Verified Date/Time: 12/23/2019 15:43:24 [facility])2019-12-23 14:16:00 Test Item Value Reference Range Interpretation Comments SARS-COV2/RT-PCR (test Negative Not Detected, Negative, code = 7290263) See external report for linked test SARS-COV-2 PERFORMING LAB [facility] JANET (test code = 8054748) Negative result for this test determines that [...] 564(g) of the Act.Fact Sheet for Healthcare Providers:https://www.[employer].com/sites/default/files/product/documents/Fact_Shee y_UN_Zvwzpsuve_Ayxw_OOYW-ErM-1.pdfFact Sheet for Healthcare Patients:https://www.[employer].com/sites/default/files/product/ documents/Zigb_Uacze_Rvlxeexy_Foca_FFCA-YbJ-7.pdfPerforming Laboratory:[facility], [place] [address]Vrzew / lambda light chains, [id number] 12:25:00 Test Item Value Reference Interpretation Comments Range Castor Lt Chain,Free 474.4 mg/L 3.3-19.4 H (test code = 61580-1) Lambda Lt 225.6 mg/L 5.7-26.3 H Chain,Free (test code = 48219-1) Castor/Lambda,Free 2.1 0.26-1.65 H Free annabelle a/lambda (test [...] (test code = Performing Lab ZIA) [employer] [facility] [address] [place] [address] Jaguar Stein MD, PhD, CORI Lab Interpretation Abnormal (test code = 31358-7) [facility] CenterPOCT-GLUCOSE [id number] 11:27:00 Test Item Value Reference Range Interpretation Comments POC-GLUCOSE METER 189 mg/dL 70-110 H : Notified RN/MD: TESTED (ROBERT) (test code AT [facility] [address] [place] [address] = 1538) [facility] [address]: Senior Staff Specialized Employment/Techni artemio ID = [id number] for Repa julio, Alondra ARTERIAL DOPPLER LEGS, [id number] 11:22:00Reason for exam:->non healing ulcer , non [...] MDReport Verified Date/Time: 12/23/2019 11:22:31 Reading Location: [facility] Radiology Reading Room Arterial Doppler Legs [id number] 11:22:00 Interface, External Ris In - 12/23/2019 [...] peripheral arterial disease. Signed: Luis Alberto Monahan MDRtu Verified Date/Time: 12/23/2019 11:22:31 Reading Location: [facility] Radiology Reading Room [facility] [id number] 04:44:00 Test Item Value Reference Range Interpretation [...] S NOT APPLICABLE FOR DIALYSIS PATIEN TS. Senior Staff Specialized Employment ID - ADMINCBC W/PLT COUNT & AUTO [id number] 04:35:00 Test Item Value Reference Range Interpretation [...] H PERCENT (BEAKER) (test code = 2801) [id number] 04:29:00 Test Item Value Reference Range Interpretation Comments Ammonia (test code = 36 17- 80 mol/L 73223-3) ZIA (test code = ZIA) Senior Staff Specialized Employment ID - ADMIN Lab Interpretation (test Normal code = 86279-0) [facility] CenterAMMONIA2020-09-24 04:29:00 Test Item Value Reference Range Interpretation Comments AMMONIA (BEAKER) (test code = 348) 36 mol/L 17-80 Senior Staff Specialized Employment ID - ADMINPOCT-GLUCOSE [id number] 20:45:00 Test Item Value Reference Range Interpretation Comments POC-GLUCOSE METER 95 mg/dL 70-110 : TESTED A T [facility] [address] (BEAKER) (test code = [address] 15[address]) [place] [address]: Senior Staff Specialized Employment/Techni artemio ID = [id number] for Anne Busby POCT-GLUCOSE [id number] 17:08:00 Test Item Value Reference Range Interpretation Comments POC-GLUCOSE METER 107 mg/dL 70-110 : TESTED A T [facility] [address] (BEAKER) (test code [address], = 1538) [place] [address]: Senior Staff Specialized Employment/Techni artemio ID = [id number] for Jordyn Fonseca POCT-GLUCOSE [id number] 11:55:00 Test Item Value Reference Range Interpretation Comments POC-GLUCOSE METER 135 mg/dL 70-110 H : TESTED A T [facility] [address] (BEAKER) (test code [address], = 1538) [place] [address]: Senior Staff Specialized Employment/Techni artemio ID = [id number] for Jordyn Fonseca Anti-Nuclear Antibody (ROGER)2019-12-22 11:40:00 Test Item Value Reference Range Interpretation Comments ROGER (test code = 66591-1) Positive Negative A ZIA (test code = ZIA) Test performed by IFA method. Lab Interpretation (test Abnormal code = 83104-5) [facility] CenterANA Titer & [id number] 11:40:00 Test Item Value Reference Range Interpretation Comments ROGER Titer (test code = 13388-2) 1:40 ROGER Pattern (test code = 1781) Speckled [facility] CenterANTI-NUCLEAR ANTIBODY (ROGER)2019-12-22 11:40:00 Test Item Value Reference Range Interpretation Comments ANTI-NUCLEAR ANTIBODY (ROGER) (BEAKER) Positive Negative A (test code = 418) Test performed by IFA method.ROGER TITER AND [id number] 11:40:00 Test Item Value Reference Range Interpretation Comments ROGER TITER (BEAKER) (test code = :40 1541) ROGER PATTERN (BEAKER) (test code = Speckled 1781) POCT-GLUCOSE [id number] 06:44:00 Test Item Value Reference Range Interpretation Comments POC-GLUCOSE METER 92 mg/dL 70-110 : TESTED A T [facility] [address] (BEAKER) (test code = [address], 1538) [facility] [place] [address]: Senior Staff Specialized Employment/Techni artemio ID = [id number] for Anne Busby COMPREHENSIVE METABOLIC [id number] 06:35:00 Test Item Value Reference Range Interpretation [...] S NOT APPLICABLE FOR DIALYSIS PATIEN TS. Senior Staff Specialized Employment ID - ADMINCBC W/PLT COUNT & AUTO [id number] 06:16:00 Test Item Value Reference Range Interpretation [...] PERCENT (BEAKER) (test code = 2801) POCT-GLUCOSE [id number] 20:38:00 Test Item Value Reference Range Interpretation Comments POC-GLUCOSE METER 85 mg/dL 70-110 : TESTED A T [facility] [address] (BEAKER) (test code = [address], 1538) [place] [address]: Senior Staff Specialized Employment/Techni artemio ID = [id number] for Anne Busby POCT-GLUCOSE [id number] 18:14:00 Test Item Value Reference Range Interpretation Comments POC-GLUCOSE METER 112 mg/dL 70-110 H : TESTED A T [facility] [address] (BEAKER) (test code [address], = 1538) [place] [address]: Senior Staff Specialized Employment/Techni artemio ID = [id number] for Christina r, Berta POCT-GLUCOSE [id number] 13:00:00 Test Item Value Reference Range Interpretation Comments POC-GLUCOSE METER 77 mg/dL 70-110 : TESTED A T [facility] [address] (BEAKER) (test code = [address], 1538) [place] [address]: Senior Staff Specialized Employment/Techni artemio ID = [id number] for Christina r, Berta POCT-GLUCOSE [id number] 07:32:00 Test Item Value Reference Range Interpretation Comments POC-GLUCOSE METER 60 mg/dL 70-110 L : TESTED A T [facility] [address] (BEAKER) (test code = [address], 1538) [place] [address]: Senior Staff Specialized Employment/Techni artemio ID = [id number] for Marissa Page COMPREHENSIVE METABOLIC [id number] 06:11:00 Test Item Value Reference Range Interpretation [...] S NOT APPLICABLE FOR DIALYSIS PATIEN TS. Senior Staff Specialized Employment ID - ADMINC-Reactive [id number] 06:06:00 Test Item Value Reference Range Interpretation Comments CRP (test code = 676) 1.63 mg/dL 0-0.5 H ZIA (test code = ZIA) Senior Staff Specialized Employment ID - ADMIN Lab Interpretation (test Abnormal code = 65668-7) [facility] CenterC-REACTIVE [id number] 06:06:00 Test Item Value Reference Range Interpretation Comments C-REACTIVE PROTEIN (BEAKER) (test 1.63 mg/dL 0.00-0.50 H code = 676) Senior Staff Specialized Employment ID - ADMINPOCT-GLUCOSE [id number] 06:04:00 Test Item Value Reference Range Interpretation Comments POC-GLUCOSE METER 56 mg/dL 70-110 L : Notified RN/MD: TESTED (BEAKER) (test code = AT SLS L [address]) [facility] [address]: Senior Staff Specialized Employment/Techni artemio ID = [id number] for Nelda Abdi CBC W/PLT COUNT & AUTO [id number] 05:53:00 Test Item Value Reference Range Interpretation [...] 0-0 H PERCENT (BEAKER) (test code = 7551) U/S, ABDOMINAL, [id number] 22:02:00Reason for exam:->thrombocytopenia / eval for hepatosplenomegalyFINAL [...] MDReport Verified Date/Time: 12/20/2019 22:02:21 US abdomen [id number] 22:02:00Interface, External Ris In - 12/20/2019 10:04 [...] Hever Marin MDReport Verified Date/Time: 12/20/2019 22:02:21 [facility]POCT[facility] [id number] 20:36:00 Test Item Value Reference Range Interpretation Comments POC-GLUCOSE METER 74 mg/dL 70-110 : Notified RN/MD: TESTED (BEAKER) (test code = AT [address]LS L [address]) [facility] [address]: Senior Staff Specialized Employment/Techni artemio ID = [id number] for Nelda Abdi POCT-GLUCOSE [id number] 17:50:00 Test Item Value Reference Range Interpretation Comments POC-GLUCOSE METER 72 mg/dL 70-110 : [facility]ED A T [facility]17 [facility] (test code = [address] [facility], 1538) [facility] [address]: Senior Staff Specialized Employment/Techni artemio ID = [id number] for Berta Servin CT, BRAIN, WITHOUT [id number] 16:08:00Unlisted Reason for Exam - Click Yes [...] Date/Time: 12/20/2019 16:08:40 CT brain without IV [id number] 16:08:00Interface, External Ris In - 12/20/2019 4:10 [...] Signed: Berta Muniz Verified Date/Time: 12/20/2019 16:08:40 [facility] HospitalRAD, FOOT, 2 VIEWS, [id number] 15:15:00Reason for exam:->Rule out osteomyelitisShould this be [...] MDReport Verified Date/Time: 12/20/2019 15:15:25 Reading Location: [facility] Radiology Reading Room , FOOT, 2 VIEWS, [id number] 15:15:00Reason for exam:->Rule out osteomyelitisShould this be [...] MDReport Verified Date/Time: 12/20/2019 15:15:25 Reading Location: [facility] Radiology Reading Room XR foot 2 views [id number] 15:15:00Interface, External Ris In - 12/20/2019 3:17 [...] MDReport Verified Date/Time: 12/20/2019 15:15:25 Reading Location: [facility] Radiology Reading Room [facility] HospitalXR foot 2 views [id number] 15:15:00Interface, External Ris In - 12/20/2019 3:17 [...] MDReport Verified Date/Time: 12/20/2019 15:15:25 Reading Location: [facility] Radiology Reading Room [facility] HospitalAMMONIA2020-09-21 14:56:00 Test Item Value Reference Range Interpretation Comments AMMONIA (BEAKER) (test code = 348) 33 mol/L 17-80 Senior Staff Specialized Employment ID - ADMINBlood gas, [id number] 14:41:00 Test Item Value Reference Range Interpretation [...] % Lab Interpretation (test code = Abnormal 08790-9) [facility] CenterBLOOD GAS, [id number] 14:41:00 Test Item Value Reference Range Interpretation [...] code = 1819) 32.0 % Occult blood, [id number] 11:56:00 Test Item Value Reference Range Interpretation Comments Occult blood (test code = 2335-8) Negative Negative Lab Interpretation (test code = Normal 17668-6) [facility], [id number] 11:56:00 Test Item Value Reference Range Interpretation Comments FECAL OCCULT BLOOD (BEAKER) (test Negative Negative code = 618) POCT-GLUCOSE [id number] 11:39:00 Test Item Value Reference Range Interpretation Comments POC-GLUCOSE METER 88 mg/dL 70-110 : TESTED A T [address] (BEAKER) (test code = [address], 15[address]) [facility] [address]: Senior Staff Specialized Employment/Techni artemio ID = [id number] for Gifty Phelps [id number] 11:22:00 Test Item Value Reference Range Interpretation Comments Haptoglobin (test code = <8 14-258 L 4542-7) ZIA (test code = ZIA) Senior Staff Specialized Employment ID - LEONIE F Lab Interpretation (test Abnormal code = 77226-1) [facility] CenterHAPTOGLOBIN2020-09-21 11:22:00 Test Item Value Reference Range Interpretation Comments HAPTOGLOBIN (BEAKER) (test code = < mg/dL 14-258 L 366) Senior Staff Specialized Employment ID - LEONIE FT4, [id number] 11:01:00 Test Item Value Reference Range Interpretation Comments Free T4 (test code = 0.52 ng/dL 0.9-1.8 L 3024-7) ZIA (test code = ZIA) Senior Staff Specialized Employment ID - ANGELI Lab Interpretation (test Abnormal code = 51104-8) [facility] CenterT4, [id number] 11:01:00 Test Item Value Reference Range Interpretation Comments FREE T4 (BEAKER) (test code = 655) 0.52 ng/dL 0.90-1.80 L Senior Staff Specialized Employment ID - ADMINPeripheral Blood Smear - Path [id number] 08:19:00 Test Item Value Reference Range Interpretation [...] Griffith M.D. code = 2849) (electronic signature) [facility] CenterPER[facility]HER[facility] - PATHOLOGIST REVIEW 2019-12-20 08:19:00 Test Item Value Reference Range Interpretation Comments RBC MORPHOLOGY Target Cells (BEAKER) (test code = 2846) RBC MORPHOLOGY Basophilic Stippling (BEAKER) (test code = 53977) RBC MORPHOLOGY Nucleated Red Blood Cells (BEAKER) (test code = 29941) PERIPHERAL SMR Normochromic normocytic REVIEW (BEAKER) anemia with a few target (test code = 2640) cells, nucleated RBCs and basophilic stippling. No increase in schistocytes. WBCs normal in number and morphology. Thrombocytopenia with normal platelet morphology. [id number] Jovita Griffith M.D. 2 (BEAKER) (test (electronic signature) code = 2849) Vitamin B12 and Yanwpf6102-25-59 06:37:00 Test Item Value Reference Range Interpretation Comments Vitamin B12 (test code = 1431 pg/mL 211-911 H 2132-9) Folate (test code = 17.00 ng/mL >=5.4 2284-8) ZIA (test code = ZIA) Senior Staff Specialized Employment ID - ADMIN Lab Interpretation (test Abnormal code = 57227-3) [facility] CenterVITAMIN B12 AND [id number] 06:37:00 Test Item Value Reference Range Interpretation Comments VITAMIN B12 (BEAKER) (test code = 1431 pg/mL 211-911 H 774) FOLATE (BEAKER) (test code = 362) 17.00 ng/mL >=5.4 Senior Staff Specialized Employment ID - ADMINPOCT-GLUCOSE [id number] 06:32:00 Test Item Value Reference Range Interpretation Comments POC-GLUCOSE METER 79 mg/dL 70-110 : TESTED A T [address] (BEAKER) (test code = [address], 1538) [facility] 77 478: Senior Staff Specialized Employment/Techni artemio ID = [id number] for Anahi Sherman [id number] 06:25:00 Test Item Value Reference Range Interpretation Comments Ferritin (test code = 595.00 ng/mL 10-291 H 2276-4) ZIA (test code = ZIA) Senior Staff Specialized Employment ID - ADMIN Lab Interpretation (test Abnormal code = 14495-9) [facility] CenterTSH/Free T4 If Bozqjrbfc2383-79-13 06:25:00 Test Item Value Reference Range Interpretation Comments TSH (test code = 21.210 0.350- 5.500 uIU/mL H 65735-1) ZIA (test code = ZIA) Senior Staff Specialized Employment ID - ADMIN Lab Interpretation (test Abnormal code = 70939-7) [facility] CenterFERRITIN2020-09-21 06:25:00 Test Item Value Reference Range Interpretation Comments FERRITIN (BEAKER) (test code = 595.00 ng/mL 10.00-291.00 H 361) Senior Staff Specialized Employment ID - ADMINTSH/FREE T4 IF [id number] 06:25:00 Test Item Value Reference Range Interpretation Comments THYROID STIMULATING HORMONE 21.210 uIU/mL 0.350-5.500 H (BEAKER) (test code = 772) Senior Staff Specialized Employment ID - SKKPVEkkzlbujdw2417-52-94 06:06:00 Test Item Value Reference Range Interpretation Comments Fibrinogen (test code = 340 mg/dL 531-526 6130-7) ZIA (test code = ZIA) Final Information (Auto Output) Lab Interpretation (test Normal code = 88285-8) [facility] CenterPT/[id number] 06:06:00 Test Item Value Reference Range Interpretation Comments Protime (test code = 13.5 9.3- 12.0 sec H 5902-2) INR (test code = 1.25 <=5.90 6301-6) PTT (test code = 38.2 23.0- 35.0 sec H 18126-7) ZIA (test code = ZIA) RECOMMENDED COUMADIN/WARFARIN INR THERAPY RANGESSTANDARD DOSE: 2.0 - 3.0 Includes: PROPHYLAXIS for venous thrombosis, systemic embolization; TREATMENT for venous thrombosis and/or pulmonary embolus.HIGH RISK: Target INR is 2.5-3.5 for patients with mechanical heart valves.Final Information (Auto Output)Final Information (Auto Output)Final Information (Auto Output) Lab Interpretation Abnormal (test code = 64217-3) [facility] CenterFIBRINOGEN2020-09-21 06:06:00 Test Item Value Reference Range Interpretation Comments FIBRINOGEN LEVEL (BEAKER) (test 340 mg/dL 200-400 code = 658) Final Information (Auto Output)PT/[id number] 06:06:00 Test Item Value Reference Range Interpretation [...] = 2502-3) ZIA (test code = ZIA) Senior Staff Specialized Employment ID - ADMIN Lab Interpretation (test Abnormal code = 86813-1) [facility] CenterIRON, TIBC, % SAT. (WITHOUT FERRITIN)2019-12-20 05:59:00 Test Item Value Reference Range Interpretation Comments IRON (BEAKER) (test code = 547) 92.0 ug/dL 45.0-170.0 TOTAL IRON BINDING CAPACITY 151 ug/dL 250-550 L (BEAKER) (test code = 769) IRON % SATURATION (2) (BEAKER) 61 % 20-55 H (test code = 2590) Senior Staff Specialized Employment ID - ADMINCOMPREHENSIVE METABOLIC [id number] 05:55:00 Test Item Value Reference Range Interpretation [...] S NOT APPLICABLE FOR DIALYSIS PATIEN TS. Senior Staff Specialized Employment ID - NYHKOH-vgnil1071-72-21 05:46:00 Test Item Value Reference Range Interpretation Comments D-Dimer, Quant (test 1.09 mg/L <0.50 H code = 63689-8) ZIA (test code = ZIA) REGARDING D-DIMER RESULTS: The 98% NPV (Negative Predictive Value) for DVT/PE exclusion is 0.50 mg/L FEU as suggested by the client development director and as approved by the FDA.Final Information (Auto Output) Lab Interpretation (test Abnormal code = 28942-0) [facility] CenterD-[id number] 05:46:00 Test Item Value Reference Range Interpretation Comments D-DIMER QUANTITATIVE (BEAKER) (test 1.09 mg/L <0.50 H code = 671) REGARDING D-DIMER RESULTS: The 98% NPV (Negative Predictive Value) for DVT/PE exclusion is 0.50 mg/LFEU as suggested by the client development director and as approved by the FDA.Final Information (Auto Output)Reticulocyte [id number] 05:42:00 Test Item Value Reference Range Interpretation Comments % Retic (test code = 59614-7) 5.9 % 0.4-2.9 H Lab Interpretation (test code = Abnormal 64709-1) [facility] CenterRETICULOCYTE [id number] 05:42:00 Test Item Value Reference Range Interpretation Comments RETICULOCYTE COUNT PCT (BEAKER) (test 5.9 % 0.4-2.9 H code = 575) CBC W/PLT COUNT & AUTO [id number] 05:33:00 Test Item Value Reference Range Interpretation [...] U/L 107-206 ZIA (test code = ZIA) Senior Staff Specialized Employment ID - ADMIN Lab Interpretation (test Normal code = 17659-8) [facility] CenterLACTATE DEHYDROGENASE (LDH)2019-12-19 21:19:00 Test Item Value Reference Range Interpretation Comments LACTATE DEHYDROGENASE (BEAKER) (test 178 U/L 107-206 code = 635) Senior Staff Specialized Employment ID - ADMINPOCT-GLUCOSE [id number] 20:47:00 Test Item Value Reference Range Interpretation Comments POC-GLUCOSE METER 102 mg/dL 70-110 : TESTED A T [address] (BEAKER) (test code [address], = 1538) [facility] 77 478: Senior Staff Specialized Employment/Techni artemio ID = [id number] for Anahi Sherman POCT-GLUCOSE [id number] 16:18:00 Test Item Value Reference Range Interpretation Comments POC-GLUCOSE METER 96 mg/dL 70-110 : TESTED A T [address] (BEAKER) (test code = [address], 1538) [facility] 77 478: Senior Staff Specialized Employment/Techni artemio ID = [id number] for Nalini Jean Baptiste Basic Metabolic [id number] 06:26:00 Test Item Value Reference Range Interpretation Comments Sodium (test code = 138 meq/L 624-255 9966-2) Potassium (test code = 3.9 meq/L 3.6-5.5 2823-3) Chloride (test code = 99 meq/L 98-106 2075-0) CO2 (test code = 30 meq/L 20-29 H 2028-9) BUN (test code = 47 mg/dL 10-26 H 3094-0) Creatinine (test code 3.04 mg/dL 0.5-1.2 H = 2160-0) Glucose (test code = 82 mg/dL 70-110 2345-7) Calcium (test code = 7.9 mg/dL 8.5-10.5 L 26013-2) EGFR (test code = 15 mL/min/1.73 [place] [address]-6) NOT ACCURATE CREATININE CLEARANCE IN PREDICTING GLOMERULAR FILTRATION RATE . ESTIMATED GFR I S NOT APPLICABLE FOR DIALYSIS PATIENTS. ZIA (test code = ZIA) Senior Staff Specialized Employment ID - ADMIN Lab Interpretation Abnormal (test code = 53740-3) [facility] METABOLIC [id number] 06:26:00 Test Item Value Reference Range Interpretation [...] S NOT APPLICABLE FOR DIALYSIS PATIEN TS. Senior Staff Specialized Employment ID - ADMINCBC W/PLT COUNT & AUTO [id number] 06:04:00 Test Item Value Reference Range Interpretation [...] PERCENT (BEAKER) (test code = 2801) POCT-GLUCOSE [id number] 05:35:00 Test Item Value Reference Range Interpretation Comments POC-GLUCOSE METER 85 mg/dL 70-110 : Notified RN/MD: TESTED (BEAKER) (test code = AT [address]) [place] [address]: Senior Staff Specialized Employment/Techni artemio ID = [id number] for KeSiddhartha pichardoar POCT-GLUCOSE [id number] 21:46:00 Test Item Value Reference Range Interpretation Comments POC-GLUCOSE METER 125 mg/dL 70-110 H : Notified RN/MD: TESTED ([facility]) (test code AT [address] = 1538) [place] [address]: Senior Staff Specialized Employment/Techni artemio ID = [id number] for Kekylee Zonia POCT-GLUCOSE [id number] 16:17:00 Test Item Value Reference Range Interpretation Comments POC-GLUCOSE METER 103 mg/dL 70-110 : TESTED A T [address] (BEAKER) (test code [address] [facility], = 1538) [place] [address]: Senior Staff Specialized Employment/Techni artemio ID = [id number] for Akhil rs, Rachelleea POCT-GLUCOSE [id number] 07:56:00 Test Item Value Reference Range Interpretation Comments POC-GLUCOSE METER 111 mg/dL 70-110 H : TESTED A T [address] (BEAKER) (test code [address] [facility], = 1538) [place] [address]1678: Senior Staff Specialized Employment/Techni artemio ID = [id number] for Akhil rs, Shelea POCT-GLUCOSE [id number] 06:25:00 Test Item Value Reference Range Interpretation Comments POC-GLUCOSE METER 57 mg/dL 70-110 L : TESTED A T [address] (BEAKER) (test code = [address] [facility], 1538) [place] [address]: Senior Staff Specialized Employment/Techni artemio ID = [id number] for Anne Busby POCT-GLUCOSE [id number] 21:55:00 Test Item Value Reference Range Interpretation Comments POC-GLUCOSE METER 76 mg/dL 70-110 : TESTED A T [address] (BEAKER) (test code = [address], 1538) [place] [address]: Senior Staff Specialized Employment/Techni artemio ID = [id number] for Anne Busby POCT-GLUCOSE [id number] 18:03:00 Test Item Value Reference Range Interpretation Comments POC-GLUCOSE METER 81 mg/dL 70-110 : TESTED A T [address] (BEAKER) (test code = [address], 1538) [place] [address]: Senior Staff Specialized Employment/Techni artemio ID = [id number] for Ericka Daniel POCT-GLUCOSE [id number] 12:33:00 Test Item Value Reference Range Interpretation Comments POC-GLUCOSE METER 73 mg/dL 70-110 : TESTED A T [address] (BEAKER) (test code = [address], 1538) [place] [address]: Senior Staff Specialized Employment/Techni artemio ID = [id number] for Marisela Bolton Hepatitis B surface [id number] 10:49:00 Test Item Value Reference Range Interpretation Comments Hep B S Ab (test code = <8.0 <8.0 mIU/mL 82708-1) ZIA (test code = ZIA) Senior Staff Specialized Employment ID - LEONIE Lab Interpretation (test Normal code = 34236-4) [facility] CenterHEPATITIS B SURFACE [id number] 10:49:00 Test Item Value Reference Range Interpretation Comments HEPATITIS B SURFACE ANTIBODY < mIU/mL <8.0 (BEAKER) (test code = 647) Senior Staff Specialized Employment ID - BERWICK FHepatitis B core antibody, [id number] 10:43:00 Test Item Value Reference Range Interpretation Comments Hep B Core Total Ab Nonreactive Nonreactive (test code = 55970-9) ZIA (test code = ZIA) Senior Staff Specialized Employment ID - LEONIE Lab Interpretation (test Normal code = 63528-3) [facility] CenterHepatitis C [id number] 10:43:00 Test Item Value Reference Range Interpretation Comments Hepatitis C Ab (test Nonreactive Nonreactive code = 65739-6) ZIA (test code = ZIA) Senior Staff Specialized Employment ID - LEONIE F Lab Interpretation (test Normal code = 62109-5) [facility] CenterHEPATITIS C [id number] 10:43:00 Test Item Value Reference Range Interpretation Comments HEPATITIS C ANTIBODY (BEAKER) Nonreactive Nonreactive (test code = 367) Senior Staff Specialized Employment ID - LEONIE FHEPATITIS B CORE ANTIBODY, [id number] 10:43:00 Test Item Value Reference Range Interpretation Comments HEPATITIS B CORE TOTAL ANTIBODY Nonreactive Nonreactive (BEAKER) (test code = 497) Senior Staff Specialized Employment ID - LEONIE FPOCT-GLUCOSE [id number] 06:31:00 Test Item Value Reference Range Interpretation Comments POC-GLUCOSE METER 67 mg/dL 70-110 L : TESTED A T [address] (BEAKER) (test code = [address], 1538) [facility] [place] [address]: Senior Staff Specialized Employment/Techni artemio ID = [id number] for Anne Busby COMPREHENSIVE METABOLIC [id number] 05:10:00 Test Item Value Reference Range Interpretation [...] S NOT APPLICABLE FOR DIALYSIS PATIEN TS. Senior Staff Specialized Employment ID - ADMINCBC W/PLT COUNT & AUTO [id number] 04:36:00 Test Item Value Reference Range Interpretation [...] PERCENT (BEAKER) (test code = 2801) POCT-GLUCOSE [id number] 21:14:00 Test Item Value Reference Range Interpretation Comments POC-GLUCOSE METER 79 mg/dL 70-110 : TESTED A T [address] (BEAKER) (test code = [address] [facility], 1538) [facility] 77 478: Senior Staff Specialized Employment/Techni artemio ID = [id number] for Anne Busby POCT-GLUCOSE [id number] 18:35:00 Test Item Value Reference Range Interpretation Comments POC-GLUCOSE METER 68 mg/dL 70-110 L : Notified RN/MD: TESTED (BEAKER) (test code = AT [address]) [facility] [address]: Senior Staff Specialized Employment/Techni artemio ID = [id number] for Alondra Kelley SARS-COV2/RT-PCR ([facility])2019-12-16 17:53:00 Test Item Value Reference Range Interpretation Comments SARS-COV2/RT-PCR (test Negative Not Detected, Negative, code = 2999879) See external report for linked test SARS-COV-2 PERFORMING LAB [facility] JANET (test code = 9515112) Negative result for this test determines that [...] 564(g) of the Act.Fact Sheet for Healthcare Providers:https://www.CloudBiltidel.Ease My Sell/sites/default/files/product/documents/Fact_Shee k_ZK_Iichwbaxk_Sdxe_XMRZ-FnP-9.pdfFact Sheet for Healthcare Patients:https://www.ClearEdge3D.Ease My Sell/sites/default/files/product/ documents/Jxfu_Jxjdv_Dftdecsw_Qrkb_YVTJ-LkE-2.pdfPerforming Laboratory:[facility], [place] [address]Ggrmiivkc B surface [id number] 16:57:00 Test Item Value Reference Range Interpretation Comments HBsAg Screen (test code = Nonreactive Nonreactive 5195-3) ZIA (test code = ZIA) Senior Staff Specialized Employment ID - ADMIN Lab Interpretation (test Normal code = 86071-7) [facility] CenterHEPATITIS B SURFACE [id number] 16:57:00 Test Item Value Reference Range Interpretation Comments HEPATITIS B SURFACE ANTIGEN (2) Nonreactive Nonreactive (BEAKER) (test code = 2585) Senior Staff Specialized Employment ID - ADMINANG, TUNNELED CATHETER [id number] 15:06:00Reason for Central Line/PICC?->Need for hemodialysis accessReason [...] the patient's medical record by the nurse. Grain Elevator Agent: Soto Arias M.D. Waterworks Supervisor: none. Approach: Right internal jugular vein Estimated [...] needle into the right atrium. A 4 Tuvaluan micropuncture sheath was placed and a 0.035 wire was advanced into the IVC. A subcutaneous tunnel was created in the left anterior chest wall by blunt dissection. A 23 cm tip to cuff 15.5 Tuvaluan Duraflow 2 catheter was brought through the [...] Arias MDReport Verified Date/Time: 12/16/2019 15:06:45Reading Location: [facility] Radiology Reading Room IR Tunneled Catheter [id number] 15:06:00 Interface, External Ris In - 12/16/2019 [...] the patient's medical record by the nurse. Grain Elevator Agent: Soto Arias M.D. Ass istant: none. Approach: [...] A 23 cm tip to cuff 15.5 Tuvaluan Duraflow 2 catheter was brought through the [...] tolerated the procedure well and [facility]. Results: Spot radiograph of the chest demonstrates the new dialysis catheter to lie in theexpected position with its tip overlying the superior right atrium. Impression: 1. Successful, uncomplicated placement of a left internal jugular tunneled dialysiscatheter using sonographic and fluoroscopic guidance and conscious sedation. Signed: Soto Arias MDReport Verified Date/Time: 12/16/2019 15:06:45 Reading Location: [facility] Radiology [facility] [id number] 14:59:00 Test Item Value Reference Range Interpretation Comments POC-GLUCOSE METER 70 mg/dL 70-110 : Notified RN/MD: TESTED ([facility]) (test code = AT [facility] L [address]) [facility] [address]: Senior Staff Specialized Employment/Techni artemio ID = [id number] for Alondra Kelley POCT-GLUCOSE [id number] 11:13:00 Test Item Value Reference Range Interpretation Comments POC-GLUCOSE METER 72 mg/dL 70-110 : Notified RN/MD: TESTED ([facility]) (test code = AT [facility] L [address]) [facility] [address]: Senior Staff Specialized Employment/Techni artemio ID = [id number] for Alondra Kelley RAD, CHEST, 1 VIEW, NON [id number] 09:20:00Reason for exam:->fallShould this be performed at [...] effusion/consolidation. Negative for pneumothorax. Signed: Soto Arias Verified Date/Time: 12/16/2019 09:20:06 Reading Location: [facility] Radiology Reading Room XR chest 1 view portable / [id number] 09:20:00Interface, External Ris In - 12/16/2019 9:22 [...] effusion/consolidation. Negative for pneumothorax. Signed: Soto Arias Verified Date/Time: 12/16/2019 09:20:06 Reading Location: [facility] Radiology Reading Room Electronically yeimi d by: SOTO ARIAS MD on 12/16/2019 09:20 [facility] POCT-GLUCOSE [id number] 06:03:00 Test Item Value Reference Range Interpretation Comments POC-GLUCOSE METER 74 mg/dL 70-110 : Notified RN/MD: TESTED (BEAKER) (test code = AT [address] L [address]) [facility] [address]: Senior Staff Specialized Employment/Techni artemio ID = [id number] for Zonia Healy BASIC METABOLIC [id number] 05:08:00 Test Item Value Reference Range Interpretation [...] S NOT APPLICABLE FOR DIALYSIS PATIEN TS. Senior Staff Specialized Employment ID - ADMINProthrombin time/[id number] 05:01:00 Test Item Value Reference Range Interpretation [...] Output) Lab Interpretation Abnormal (test code = 80001-7) [facility] CenterPROTHROMBIN TIME/[id number] 05:01:00 Test Item Value Reference Range Interpretation [...] Information (Auto Output)CBC W/PLT COUNT & AUTO [id number] 04:46:00 Test Item Value Reference Range Interpretation [...] PERCENT (BEAKER) (test code = 2801) POCT-GLUCOSE [id number] 17:13:00 Test Item Value Reference Range Interpretation Comments POC-GLUCOSE METER 220 mg/dL 70-110 H TESTED AT [facility] 6720 (BEAKER) (test code = [address] [place] [place] 1538) [address] BASIC METABOLIC [id number] 15:47:00 Test Item Value Reference Range Interpretation [...] NOT APPLICABLE FOR DIALYSIS PATIEN TS. POCT-GLUCOSE [id number] 11:30:00 Test Item Value Reference Range Interpretation Comments POC-GLUCOSE METER 268 mg/dL 70-110 H TESTED AT [facility] 6720 (BEAKER) (test code = JULIANO Osborne [facility] 1538) [address] POCT-GLUCOSE [id number] 07:08:00 Test Item Value Reference Range Interpretation Comments POC-GLUCOSE METER 208 mg/dL 70-110 H TESTED AT [facility] 6720 (BEAKER) (test code = BANNER Dylon [facility] 1538) [address] CALCIUM, [id number] 06:47:00 Test Item Value Reference Range Interpretation Comments CALCIUM IONIZED (BEAKER) (test 1.11 mmol/L 1.12-1.27 L code = 698) PH, BLOOD (BEAKER) (test code = 7.40 1810) BASIC METABOLIC [id number] 06:40:00 Test Item Value Reference Range Interpretation [...] S NOT APPLICABLE FOR DIALYSIS PATIEN TS. [id number] 06:33:00 Test Item Value Reference Range Interpretation Comments PHOSPHORUS (BEAKER) (test code = 5.1 mg/dL 2.3-4.7 H 604) [id number] 06:33:00 Test Item Value Reference Range Interpretation Comments MAGNESIUM (BEAKER) (test code = 2.0 mg/dL 1.6-2.6 627) LACTIC ACID, VENOUS, WHOLE [id number] 06:02:00 Test Item Value Reference Range Interpretation Comments LACTATE BLOOD VENOUS (2) (BEAKER) 0.8 mmol/L 0.5-2.2 (test code = 2872) Effective 08/02/2015: Units/Reference Range ChangeNew: 0.5-2.2 mmol/L Previous: 5-20 mg/dLCBC W/PLT COUNT & AUTO [id number] 05:54:00 Test Item Value Reference Range Interpretation [...] PERCENT (BEAKER) (test code = 2801) POCT-GLUCOSE [id number] 21:30:00 Test Item Value Reference Range Interpretation Comments POC-GLUCOSE METER 248 mg/dL 70-110 H TESTED AT [facility] 6720 [facility] (test code = [address] [place] 1538) [address] RAD, [id number] 21:22:00Reason for exam:->fall, tailbone painFINAL REPORT RAD, [...] acute fracture persists. Signed: Juan Francisco Connor Verified Date/Time: 09/04/2017 21:22:03 Reading Location: [facility] C013T [facility] Reading Room POCT-GLUCOSE [id number] 17:37:00 Test Item Value Reference Range Interpretation Comments POC-GLUCOSE METER 222 mg/dL 70-110 H TESTED AT [facility] 6720 (BEAKER) (test code = [address] [place] [place] 1538) [address] POCT-GLUCOSE [id number] 13:55:00 Test Item Value Reference Range Interpretation Comments POC-GLUCOSE METER 194 mg/dL 70-110 H TESTED AT [facility] 6720 (BEAKER) (test code = [address] [place] 1538) [address] POCT-GLUCOSE [id number] 12:34:00 Test Item Value Reference Range Interpretation Comments POC-GLUCOSE METER 229 mg/dL 70-110 H TESTED AT [facility] 6720 (BEAKER) (test code = JULIANO Osborne [facility] 1538) [address] POCT-GLUCOSE [id number] 08:00:00 Test Item Value Reference Range Interpretation Comments POC-GLUCOSE METER 159 mg/dL 70-110 H TESTED AT [facility] 6720 (BEAKER) (test code = JULIANO Osborne [facility] 1538) [address] CALCIUM, [id number] 06:00:00 Test Item Value Reference Range Interpretation Comments CALCIUM IONIZED (BEAKER) (test 1.05 mmol/L 1.12-1.27 L code = 698) PH, BLOOD (BEAKER) (test code = 7.45 1810) [id number] 05:59:00 Test Item Value Reference Range Interpretation Comments PHOSPHORUS (BEAKER) (test code = 4.8 mg/dL 2.3-4.7 H 604) [id number] 05:59:00 Test Item Value Reference Range Interpretation Comments MAGNESIUM (BEAKER) (test code = 2.0 mg/dL 1.6-2.6 627) BASIC METABOLIC [id number] 05:59:00 Test Item Value Reference Range Interpretation [...] = 380) CBC W/PLT COUNT & AUTO [id number] 05:32:00 Test Item Value Reference Range Interpretation [...] PERCENT (BEAKER) (test code = 2801) POCT-GLUCOSE [id number] 20:36:00 Test Item Value Reference Range Interpretation Comments POC-GLUCOSE METER 211 mg/dL 70-110 H TESTED AT [place] [address] ([facility] (test code = [facility] 1538) [address] CREATININE, RANDOM [id number] 19:55:00 Test Item Value Reference Range Interpretation Comments CREATININE URINE (BEAKER) (test 16.1 mg/dL code = 375) Reference Range: No NormalsPROTEIN, RANDOM [id number] 19:55:00 Test Item Value Reference Range Interpretation Comments PROTEIN, URINE (BEAKER) (test code 102 mg/dL 0-14 H = 1569) POCT-GLUCOSE [id number] 18:04:00 Test Item Value Reference Range Interpretation Comments POC-GLUCOSE METER 177 mg/dL 70-110 H TESTED AT [place] [address] ([facility] (test code = BANNER [facility] 1538) [address] POCT-GLUCOSE [id number] 11:59:00 Test Item Value Reference Range Interpretation Comments POC-GLUCOSE METER 244 mg/dL 70-110 H TESTED AT [place] [address] (BEAKER) (test code = BANNER [employer] [facility] 1538) [address] POCT-GLUCOSE [id number] 07:53:00 Test Item Value Reference Range Interpretation Comments POC-GLUCOSE METER 160 mg/dL 70-110 H TESTED AT [facility] 6720 (BEAKER) (test code = JULIANO [place] 153) [address] BASIC METABOLIC [id number] 05:29:00 Test Item Value Reference Range Interpretation [...] S NOT APPLICABLE FOR DIALYSIS PATIEN TS. [id number] 05:21:00 Test Item Value Reference Range Interpretation Comments MAGNESIUM (BEAKER) (test code = 2.1 mg/dL 1.6-2.6 627) HEPATIC FUNCTION [id number] 05:21:00 Test Item Value Reference Range Interpretation [...] code = 23 U/L 6-55 347) TROPONIN [id number] 05:18:00 Test Item Value Reference Range Interpretation [...] PERCENT (BEAKER) (test code = 2801) TROPONIN [id number] 23:40:00 Test Item Value Reference Range Interpretation [...] acidosis, acute neurological disease, and persistent tachyarrhythmia.POCT-GLUCOSE [id number] 22:51:00 Test Item Value Reference Range Interpretation Comments POC-GLUCOSE METER 214 mg/dL 70-110 H TESTED AT [facility] 6720 ([facility]) (test code = JULIANO Osborne [facility] 1538) [address] RAD, CHEST, 1 VIEW, NON [id number] 21:42:00Reason for exam:->CHEST PAINShould this be performed at the bedside?->YesFINAL REPORT RAD, CHEST, 1 VIEW, NON DEPT INDICATION: CHEST PAIN COMPARISON: Chest x-ray 4 weeks ago TECHNIQUE: Single frontal view of the chest. IMPRESSION:Cardiomegaly.Mild pulmonary interstitial edema with a small right- sided effusion.No acute osseous abnormality. Signed: Dario Abraham MDReport Verified Date/Time: 09/02/2017 21:42:11 Reading Location: [facility] C013T [facility] Reading Room CREATININE, RANDOM [id number] 21:10:00 Test Item Value Reference Range Interpretation Comments CREATININE URINE (BEAKER) (test 35.5 mg/dL code = 375) Reference Range: No NormalsSODIUM, RANDOM [id number] 21:10:00 Test Item Value Reference Range Interpretation Comments SODIUM URINE (BEAKER) (test code = 80 meq/L 243) Reference Range: No NormalsURINALYSIS W/ [id number] 20:59:00 Test Item Value Reference Range Interpretation [...] code = 514) SOURCE(BEAKER) (test code = 6793) BASIC METABOLIC [id number] 16:49:00 Test Item Value Reference Range Interpretation [...] S NOT APPLICABLE FOR DIALYSIS PATIEN TS. [id number] 16:38:00 Test Item Value Reference Range Interpretation [...] (BEAKER) (test code = 700) BASIC METABOLIC [id number] 13:43:00 Test Item Value Reference Range Interpretation [...] NOT APPLICABLE FOR DIALYSIS PATIEN TS. POCT-GLUCOSE [id number] 12:44:00 Test Item Value Reference Range Interpretation Comments POC-GLUCOSE METER 283 mg/dL 70-110 H TESTED AT [facility] 6720 (BEAKER) (test code = JULIANO [place] 1538) [address] CALCIUM, [id number] 07:03:00 Test Item Value Reference Range Interpretation Comments CALCIUM IONIZED (BEAKER) (test 1.02 mmol/L 1.12-1.27 L code = 698) PH, BLOOD (BEAKER) (test code = 7.43 1810) [id number] 05:28:00 Test Item Value Reference Range Interpretation Comments PHOSPHORUS (BEAKER) (test code = 3.3 mg/dL 2.3-4.7 604) [id number] 05:28:00 Test Item Value Reference Range Interpretation Comments MAGNESIUM (BEAKER) (test code = 1.5 mg/dL 1.6-2.6 L 627) BASIC METABOLIC [id number] 05:28:00 Test Item Value Reference Range Interpretation [...] PATIEN TS. CBC W/PLT COUNT & AUTO [id number] 05:06:00 Test Item Value Reference Range Interpretation [...] PERCENT (BEAKER) (test code = 2801) POCT-GLUCOSE [id number] 21:08:00 Test Item Value Reference Range Interpretation Comments POC-GLUCOSE METER 202 mg/dL 70-110 H TESTED AT [place] [address] ([facility]) (test code = [facility] 1538) [address] POCT-GLUCOSE [id number] 16:50:00 Test Item Value Reference Range Interpretation Comments POC-GLUCOSE METER 287 mg/dL 70-110 H TESTED AT [place] [address] ([facility]) (test code = [facility] 1538) [address] POCT-GLUCOSE [id number] 12:21:00 Test Item Value Reference Range Interpretation Comments POC-GLUCOSE METER 213 mg/dL 70-110 H TESTED AT [place] [address] ([facility] (test code = [facility] 1538) 85479 POCT-GLUCOSE [id number] 08:28:00 Test Item Value Reference Range Interpretation Comments POC-GLUCOSE METER 178 mg/dL 70-110 H TESTED AT [place] [address] ([facility]) (test code = [facility] 1538) [address] CALCIUM, [id number] 07:06:00 Test Item Value Reference Range Interpretation Comments CALCIUM IONIZED (BEAKER) (test 0.99 mmol/L 1.12-1.27 L code = 698) PH, BLOOD (BEAKER) (test code = 7.42 1810) [id number] 05:37:00 Test Item Value Reference Range Interpretation Comments PHOSPHORUS (BEAKER) (test code = 3.5 mg/dL 2.3-4.7 604) [id number] 05:37:00 Test Item Value Reference Range Interpretation Comments MAGNESIUM (BEAKER) (test code = 1.6 mg/dL 1.6-2.6 627) BASIC METABOLIC [id number] 05:37:00 Test Item Value Reference Range Interpretation [...] PATIEN TS. CBC W/PLT COUNT & AUTO [id number] 05:07:00 Test Item Value Reference Range Interpretation [...] PERCENT (BEAKER) (test code = 2800) POCT-GLUCOSE [id number] 21:24:00 Test Item Value Reference Range Interpretation Comments POC-GLUCOSE METER 255 mg/dL 70-110 H TESTED AT [facility] 6720 ([facility] (test code = JULIANO REYEZ 1538) [address] POCT-GLUCOSE [id number] 17:11:00 Test Item Value Reference Range Interpretation Comments POC-GLUCOSE METER 244 mg/dL 70-110 [place] [address] ([facility]) (test code = JULIANO Osborne [facility] 1538) [address] POCT-GLUCOSE [id number] 11:54:00 Test Item Value Reference Range Interpretation Comments POC-GLUCOSE METER 209 mg/dL 70-110 H TESTED AT [place] [address] (ROBERT) (test code = JULIANO Osborne [facility] 1538) [address]53 POCT-GLUCOSE [id number] 08:15:00 Test Item Value Reference Range Interpretation Comments POC-GLUCOSE METER 132 mg/dL 70-110 H TESTED AT [place] [address] ([facility]) (test code = JULIANO Osborne [facility] 1538) [address] RAD, CHEST, 1 VIEW, NON [id number] 07:44:00Reason for exam:->edemaShould this be performed at the bedside?->YesFINAL REPORT Chest one view AP 08/07/2017 7:44 AM CLINICAL INDICATION: edema COMPARISON: 05/31/2017 IMPRESSION: Cardiomediastinal contours are stable. There is mild pulmonary edema,asymmetric to the right. There are trace bilateral pleural effusions, with bibasilar linear atelectasis. Sternotomy wires remain midline. Signed: Regan Cespedes Verified Date/Time: 08/07/2017 07:44:22 Reading Location: [facility] Radiology Reading Room [id number] 05:30:00 Test Item Value Reference Range Interpretation Comments FERRITIN (BEAKER) (test code = 361) 87 ng/mL 5-275 CBC W/PLT COUNT & AUTO [id number] 05:21:00 Test Item Value Reference Range Interpretation [...] % 20-55 L (test code = 2590) [id number] 05:11:00 Test Item Value Reference Range Interpretation Comments PHOSPHORUS (BEAKER) (test code = 3.6 mg/dL 2.3-4.7 604) [id number] 05:11:00 Test Item Value Reference Range Interpretation Comments MAGNESIUM (BEAKER) (test code = 2.0 mg/dL 1.6-2.6 627) BASIC METABOLIC [id number] 05:11:00 Test Item Value Reference Range Interpretation [...] H (BEAKER) (test code = 700) CALCIUM, [id number] 04:58:00 Test Item Value Reference Range Interpretation Comments CALCIUM IONIZED (BEAKER) (test 1.04 mmol/L 1.12-1.27 L code = 698) PH, BLOOD (BEAKER) (test code = 7.41 1810) RETICULOCYTE [id number] 04:51:00 Test Item Value Reference Range Interpretation Comments RETICULOCYTE COUNT PCT (BEAKER) (test 1.2 % 0.5-1.7 code = 575) POCT-GLUCOSE [id number] 20:49:00 Test Item Value Reference Range Interpretation Comments POC-GLUCOSE METER 202 mg/dL 70-110 H TESTED AT [facility] 6720 (BEAKER) (test code = JULIANO REYEZ 1538) [address] CREATININE, RANDOM [id number] 18:38:00 Test Item Value Reference Range Interpretation Comments CREATININE URINE (BEAKER) (test 56.3 mg/dL code = 375) Reference Range: No NormalsPROTEIN, RANDOM [id number] 18:38:00 Test Item Value Reference Range Interpretation Comments PROTEIN, URINE (BEAKER) (test code 189 mg/dL 0-14 H = 1569) URINALYSIS W/ [id number] 18:34:00 Test Item Value Reference Range Interpretation [...] 516) SOURCE(BEAKER) (test code = Urine, Voided 7887) POCT-GLUCOSE [id number] 17:38:00 Test Item Value Reference Range Interpretation Comments POC-GLUCOSE METER 143 mg/dL 70-110 H TESTED AT [place] [address] (BEAKER) (test code = JULIANO Osborne [facility] 1538) [address] POCT-GLUCOSE [id number] 12:30:00 Test Item Value Reference Range Interpretation Comments POC-GLUCOSE METER 218 mg/dL 70-110 H TESTED AT [place] [address] (BEAKER) (test code = JULIANO Osborne [facility] 1538) [address] POCT-GLUCOSE [id number] 08:00:00 Test Item Value Reference Range Interpretation Comments POC-GLUCOSE METER 134 mg/dL 70-110 H TESTED AT [place] [address] (BEAKER) (test code = JULIANO Osborne [facility] 1538) [address] CBC W/PLT COUNT & AUTO [id number] 04:23:00 Test Item Value Reference Range Interpretation [...] (BEAKER) (test code = 2801) BASIC METABOLIC [id number] 04:13:00 Test Item Value Reference Range Interpretation [...] S NOT APPLICABLE FOR DIALYSIS PATIEN TS. [id number] 04:10:00 Test Item Value Reference Range Interpretation Comments PHOSPHORUS (BEAKER) (test code = 4.9 mg/dL 2.3-4.7 H 604) [id number] 04:10:00 Test Item Value Reference Range Interpretation Comments MAGNESIUM (BEAKER) (test code = 1.4 mg/dL 1.6-2.6 L 627) [id number] 04:08:00 Test Item Value Reference Range Interpretation Comments FIBRINOGEN LEVEL (BEAKER) (test 548 mg/dl 225-434 H code = 658) [id number] 04:08:00 Test Item Value Reference Range Interpretation Comments PARTIAL THROMBOPLASTIN TIME 37.7 seconds 22.5-36.0 H (BEAKER) (test code = 760) PROTHROMBIN [id number] 04:07:00 Test Item Value Reference Range Interpretation Comments PROTIME (BEAKER) (test code = 16.2 seconds 11.7-14.7 H 759) INR (BEAKER) (test code = 370) 1.3 <=5.9 RECOMMENDED COUMADIN/WARFARIN INR THERAPY RANGESSTANDARD DOSE: 2.0 - 3.0 Includes: PROPHYLAXIS forvenous thrombosis, systemic embolization; TREATMENT for venous thrombosis and/or pulmonary embolus.HIGH RISK: Target INR is 2.5-3.5 for patients with mechanical heart valves.[id number] 16:59:00 Test Item Value Reference Range Interpretation Comments ACTIVATED CLOTTING TIME 219 sec TEST ED AT [facility] 6720 (BEAKER) (test code = JULIANO [place] 441) [address] BASIC METABOLIC [id number] 14:25:00 Test Item Value Reference Range Interpretation [...] NOT APPLICABLE FOR DIALYSIS PATIEN TS. POCT-GLUCOSE [id number] 13:21:00 Test Item Value Reference Range Interpretation Comments POC-GLUCOSE METER 170 mg/dL 70-110 H TESTED AT [facility] 6720 (BEAKER) (test code = JULIANO [place] 1538) [address] POTASSIUM-STAT [id number] 13:20:00 Test Item Value Reference Range Interpretation Comments POTASSIUM (BEAKER) (test code = 4.2 meq/L 3.6-5.5 379) SODIUM NA-STAT [id number] 13:20:00 Test Item Value Reference Range Interpretation Comments SODIUM (BEAKER) (test code = 381) 133 meq/L 135-148 L HGB/HCT (H&H) - STAT [id number] 12:34:00 Test Item Value Reference Range Interpretation Comments HEMOGLOBIN (BEAKER) (test code = 10.8 g/dL 12.0-15.0 L 410) HEMATOCRIT (BEAKER) (test code = 32.0 % 36.0-45.0 L 411) POTASSIUM-STAT [id number] 08:15:00 Test Item Value Reference Range Interpretation Comments POTASSIUM (BEAKER) (test code = 4.1 meq/L 3.6-5.5 379) BLOOD GAS, [id number] 08:15:00 Test Item Value Reference Range Interpretation [...] code = 1819) 70.0 % SODIUM NA-STAT [id number] 08:15:00 Test Item Value Reference Range Interpretation Comments SODIUM (BEAKER) (test code = 381) 130 meq/L 135-148 L GLUCOSE-STAT [id number] 08:15:00 Test Item Value Reference Range Interpretation Comments GLUCOSE RANDOM (BEAKER) (test code 172 mg/dL 70-110 H = 652) HGB/HCT (H&H) - STAT [id number] 08:15:00 Test Item Value Reference Range Interpretation Comments HEMOGLOBIN (BEAKER) (test code = 8.8 g/dL 12.0-15.0 L 410) HEMATOCRIT (BEAKER) (test code = 26.0 % 36.0-45.0 L 411) BASIC METABOLIC [id number] 07:37:00 Test Item Value Reference Range Interpretation [...] PATIEN TS. CBC W/PLT COUNT & AUTO [id number] 07:20:00 Test Item Value Reference Range Interpretation [...] PERCENT (BEAKER) (test code = 2801) POCT-GLUCOSE [id number] 07:03:00 Test Item Value Reference Range Interpretation Comments POC-GLUCOSE METER 186 mg/dL 70-110 H TESTED AT [facility] 6720 (BEAKER) (test code = [place]ULIAN[place] 1538) [address] B-TYPE NATRIURETIC FACTOR (BNP)2017-06-10 12:44:00 Test Item Value Reference Range Interpretation Comments B-TYPE NATRIURETIC PEPTIDE 1264 pg/mL 0-100 H (BEAKER) (test code = 700) [id number] 12:36:00 Test Item Value Reference Range Interpretation Comments MAGNESIUM (BEAKER) (test code = 1.6 mg/dL 1.6-2.6 627) BASIC METABOLIC [id number] 12:36:00 Test Item Value Reference Range Interpretation [...] NOT APPLICABLE FOR DIALYSIS PATIEN TS. POCT-GLUCOSE [id number] 12:04:00 Test Item Value Reference Range Interpretation Comments POC-GLUCOSE METER 274 mg/dL 70-110 H [facility] ([facility]ER[facility] (test code = [facility] [place] 1538) [address] POCT-GLUCOSE [id number] 07:21:00 Test Item Value Reference Range Interpretation Comments POC-GLUCOSE METER 137 mg/dL 70-110 H [facility] (BEAKER) (test code = [facility] [place] 1538) [address] BASIC METABOLIC [id number] 05:10:00 Test Item Value Reference Range Interpretation [...] RED BLOOD CELLS 0 /100 WBC 0-0 ([facility]) (test code = 413) POCT-GLUCOSE [id number] 21:23:00 Test Item Value Reference Range Interpretation Comments POC-GLUCOSE METER 240 mg/dL 70-110 H TESTED AT [facility] 6720 ([facility]) (test code = BANNER Dylon [facility] 1538) [address] POCT-GLUCOSE [id number] 16:42:00 Test Item Value Reference Range Interpretation Comments POC-GLUCOSE METER 234 mg/dL 70-110 H TESTED AT [place] [address] ([facility]) (test code = [facility] 1538) [address] POCT-GLUCOSE [id number] 13:22:00 Test Item Value Reference Range Interpretation Comments POC-GLUCOSE METER 166 mg/dL 70-110 H TESTED AT [place] [address] ([facility]) (test code = [facility] 1538) [address] RAD, CHEST, 1 VIEW, NON [id number] 09:43:00Reason for exam:->s/p ACBShould this be performed [...] are present. No pneumothorax. Signed: Lynda Ring [facility] Verified Date/Time: 05/31/2017 09:43:30 ReadingLocation: [facility] B1 C013X Ortho Consult Reading Room POCT-GLUCOSE [id number] 06:57:00 Test Item Value Reference Range Interpretation Comments POC-GLUCOSE METER 136 mg/dL 70-110 H TESTED AT [facility] 6720 ([facility]) (test code = [facility] 1538) [address] CALCIUM, [id number] 06:41:00 Test Item Value Reference Range Interpretation Comments CALCIUM IONIZED ([facility]) (test 1.10 mmol/L 1.12-1.27 L code = 698) PH, BLOOD (BEAKER) (test code = 7.42 1810) [id number] 06:17:00 Test Item Value Reference Range Interpretation Comments PHOSPHORUS (BEAKER) (test code = 3.3 mg/dL 2.3-4.7 604) [id number] 06:17:00 Test Item Value Reference Range Interpretation Comments MAGNESIUM (BEAKER) (test code = 1.8 mg/dL 1.6-2.6 627) BASIC METABOLIC [id number] 06:17:00 Test Item Value Reference Range Interpretation [...] PATIEN TS. CBC W/PLT COUNT & AUTO [id number] 05:07:00 Test Item Value Reference Range Interpretation [...] PERCENT (BEAKER) (test code = 2801) POCT-GLUCOSE [id number] 20:56:00 Test Item Value Reference Range Interpretation Comments POC-GLUCOSE METER 196 mg/dL 70-110 H TESTED AT [facility] 67 ([facility] (test code = JULIANO [place] 1538) [address] POCT-GLUCOSE [id number] 16:42:00 Test Item Value Reference Range Interpretation Comments POC-GLUCOSE METER 196 mg/dL 70-110 H TESTED AT [facility] 6720 (BEAKER) (test code = JULIANO [place] 1538) [address] POCT-GLUCOSE [id number] 11:45:00 Test Item Value Reference Range Interpretation Comments POC-GLUCOSE METER 215 mg/dL 70-110 H TESTED AT [facility] 6720 (BEAKER) (test code = JULIANO [place] 1538) [address] RAD, CHEST, 1 VIEW, NON [id number] 11:15:00Reason for exam:->s/p ACBShould this be performed at the bedside?->YesFINAL REPORT Chest one view compared to May 28, 2017 Discussion: Airspace opacities are seen in both lower lung regions, probably atelectasis. Correlate clinically for infection. I could not exclude small effusions. No pneumothorax. Upper lungs clear. Signed: Jeannette Nava Verified Date/Time: 05/30/2017 11:15:07 Reading Location: [facility] Radiology Reading Room CALCIUM, [id number] 09:21:00 Test Item Value Reference Range Interpretation Comments CALCIUM IONIZED (BEAKER) (test 1.11 mmol/L 1.12-1.27 L code = 698) PH, BLOOD (BEAKER) (test code = 7.36 1810) BASIC METABOLIC [id number] 07:37:00 Test Item Value Reference Range Interpretation [...] S NOT APPLICABLE FOR DIALYSIS PATIEN TS. [id number] 07:28:00 Test Item Value Reference Range Interpretation Comments PHOSPHORUS (BEAKER) (test code = 3.8 mg/dL 2.3-4.7 604) [id number] 07:28:00 Test Item Value Reference Range Interpretation Comments MAGNESIUM (BEAKER) (test code = 1.9 mg/dL 1.6-2.6 627) CBC W/PLT COUNT & AUTO [id number] 07:26:00 Test Item Value Reference Range Interpretation [...] PERCENT (BEAKER) (test code = 2801) POCT-GLUCOSE [id number] 07:21:00 Test Item Value Reference Range Interpretation Comments POC-GLUCOSE METER 146 mg/dL 70-110 H TESTED AT [place] [address] ([facility]) (test code = JULIANO Osborne [facility] 1538) [address] POCT-GLUCOSE [id number] 22:02:00 Test Item Value Reference Range Interpretation Comments POC-GLUCOSE METER 201 mg/dL 70-110 H TESTED AT [place] [address] ([facility]) (test code = JULIANO Osborne [facility] 1538) [address] POCT-GLUCOSE [id number] 18:27:00 Test Item Value Reference Range Interpretation Comments POC-GLUCOSE METER 240 mg/dL 70-110 H TESTED AT [place] [address] ([facility]) (test code = JULIANO Osborne [facility] 1538) [address] POCT-GLUCOSE [id number] 12:13:00 Test Item Value Reference Range Interpretation Comments POC-GLUCOSE METER 193 mg/dL 70-110 H TESTED AT [place] [address] ([facility]) (test code = BANNER Dylon [facility] 1538) [address] POCT-GLUCOSE [id number] 09:02:00 Test Item Value Reference Range Interpretation Comments POC-GLUCOSE METER 132 mg/dL 70-110 H TESTED AT [place] [address] ([facility]) (test code = BANNER Dylon [facility] 1538) [address] CALCIUM, [id number] 05:42:00 Test Item Value Reference Range Interpretation Comments CALCIUM IONIZED (BEAKER) (test 1.12 mmol/L 1.12-1.27 code = 698) PH, BLOOD (BEAKER) (test code = 7.34 1810) COMPREHENSIVE METABOLIC [id number] 05:33:00 Test Item Value Reference Range Interpretation [...] S NOT APPLICABLE FOR DIALYSIS PATIEN TS. [id number] 05:32:00 Test Item Value Reference Range Interpretation Comments PHOSPHORUS (BEAKER) (test code = 3.6 mg/dL 2.3-4.7 604) [id number] 05:32:00 Test Item Value Reference Range Interpretation Comments MAGNESIUM (BEAKER) (test code = 2.2 mg/dL 1.6-2.6 627) CBC W/PLT COUNT & AUTO [id number] 05:01:00 Test Item Value Reference Range Interpretation [...] EOSINOPHILS ABSOLUTE COUNT 0.25 K/ L 0.04-0.36 ([facility]) (test code = 416) BASOPHILS ABSOLUTE COUNT ([facility]) 0.03 K/ L 0.01-0.08 (test code = 417) IMMATURE GRANULOCYTES-RELATIVE 1 % 0-1 PERCENT ([facility]) (test code = 2801) POCT-GLUCOSE [id number] 21:04:00 Test Item Value Reference Range Interpretation Comments POC-GLUCOSE METER 165 mg/dL 70-110 H TESTED AT [place] [address] ([facility]) (test code = JULIANO Osborne [facility] 1538) [address] POCT-GLUCOSE [id number] 17:30:00 Test Item Value Reference Range Interpretation Comments POC-GLUCOSE METER 236 mg/dL 70-110 H TESTED AT [place] [address] ([facility]) (test code = JULIANO Osborne [facility] 1538) [address] RAD, CHEST, 1 VIEW, NON [id number] 13:53:00Reason for exam:->assess for ill-defined opacityShould this [...] MDReport Verified Date/Time: 05/28/2017 13:53:03 Reading Location: [address] Radiology Reading Room POCT-GLUCOSE [id number] 11:53:00 Test Item Value Reference Range Interpretation Comments POC-GLUCOSE METER 215 mg/dL 70-110 H TESTED AT [place] [address] ([facility]) (test code = JULIANO Osborne [facility] 1538) [address] POCT-GLUCOSE [id number] 08:32:00 Test Item Value Reference Range Interpretation Comments POC-GLUCOSE METER 168 mg/dL 70-110 H TESTED AT [place] [address] (BEAKER) (test code = JULIANO [place]UTH [place] 1538) [address] CALCIUM, [id number] 05:44:00 Test Item Value Reference Range Interpretation Comments CALCIUM IONIZED (BEAKER) (test 1.09 mmol/L 1.12-1.27 L code = 698) PH, BLOOD (BEAKER) (test code = 7.38 1810) [id number] 05:44:00 Test Item Value Reference Range Interpretation Comments PHOSPHORUS (BEAKER) (test code = 3.5 mg/dL 2.3-4.7 604) [id number] 05:44:00 Test Item Value Reference Range Interpretation Comments MAGNESIUM (BEAKER) (test code = 1.9 mg/dL 1.6-2.6 627) BASIC METABOLIC [id number] 05:44:00 Test Item Value Reference Range Interpretation [...] PATIEN TS. CBC W/PLT COUNT & AUTO [id number] 05:05:00 Test Item Value Reference Range Interpretation [...] PERCENT (BEAKER) (test code = 2801) POCT-GLUCOSE [id number] 21:03:00 Test Item Value Reference Range Interpretation Comments POC-GLUCOSE METER 173 mg/dL 70-110 H TESTED AT [facility] 6720 (BEAKER) (test code = JULIANO Osborne [facility] 1538) [address] [id number] 18:15:00 Test Item Value Reference Range Interpretation Comments ACTIVATED CLOTTING TIME 147 sec TEST ED AT [place] [address] ([facility]) (test code = JULIANO [place] 441) [address] [id number] 18:15:00 Test Item Value Reference Range Interpretation Comments ACTIVATED CLOTTING TIME 246 sec TEST ED AT [place] [address] ([facility]) (test code = JULIANO Osborne [facility] 441) [address] POCT-GLUCOSE [id number] 12:39:00 Test Item Value Reference Range Interpretation Comments POC-GLUCOSE METER 219 mg/dL 70-110 H TESTED AT [place] [address] ([facility]) (test code = JULIANO Osborne [facility] 1538) [address] RAD, CHEST, 1 VIEW, NON [id number] 10:11:00Reason for exam:->pl effusionShould this be performed at the bedside?->YesFINAL REPORT Chest one view compared to May 26 Discussion: There is cardiac prominence. Upper lungs are clear. Ill-defined basilar densities are similar probably atelectasis. No gross effusion or pneumothorax with bilateral chest tubes in place. Signed: Jeannette Nava Verified Date/Time: 05/27/2017 10:11:44 Reading Location: [facility] Radiology Reading Room POCT-GLUCOSE METER 2017-05-27 07:05:00 Test Item Value Reference Range Interpretation Comments POC-GLUCOSE METER 167 mg/dL 70-110 H TESTED AT [place] [address] ([facility]) (test code = JULIANO Osborne [facility] 1538) [address] CALCIUM, [id number] 06:20:00 Test Item Value Reference Range Interpretation Comments CALCIUM IONIZED (AKER) (test 0.98 mmol/L 1.12-1.27 L code = 698) PH, BLOOD ([facility]) (test code = 7.50 1810) [id number] 04:56:00 Test Item Value Reference Range Interpretation Comments PHOSPHORUS (BEAKER) (test code = 2.6 mg/dL 2.3-4.7 604) [id number] 04:56:00 Test Item Value Reference Range Interpretation Comments MAGNESIUM (BEAKER) (test code = 2.0 mg/dL 1.6-2.6 627) BASIC METABOLIC [id number] 04:56:00 Test Item Value Reference Range Interpretation [...] PATIEN TS. CBC W/PLT COUNT & AUTO [id number] 04:36:00 Test Item Value Reference Range Interpretation [...] PERCENT (BEAKER) (test code = 2801) POCT-GLUCOSE [id number] 21:29:00 Test Item Value Reference Range Interpretation Comments POC-GLUCOSE METER 147 mg/dL 70-110 H TESTED AT [place] [address] ([facility]) (test code = JULIANO Osborne [place] 1538) [address] POCT-GLUCOSE [id number] 17:51:00 Test Item Value Reference Range Interpretation Comments POC-GLUCOSE METER 224 mg/dL 70-110 H TESTED AT [place] [address] ([facility]) (test code = JULIANO Osborne [place] 1538) [address] POCT-GLUCOSE [id number] 13:53:00 Test Item Value Reference Range Interpretation Comments POC-GLUCOSE METER 182 mg/dL 70-110 H TESTED AT [place] [address] ([facility]) (test code = JULIANO Osborne [facility] 1538) [address] RAD, CHEST, 1 VIEW, NON [id number] 08:44:00Reason for exam:->pl effusionShould this be performed [...] No other significant change. Signed: Olaf Ortega Verified Date/Time: 05/26/2017 08:44:25 Reading Location: [address] Radiology Reading Room POCT- GLUCOSE [id number] 07:43:00 Test Item Value Reference Range Interpretation Comments POC-GLUCOSE METER 113 mg/dL 70-110 H TESTED AT [facility] 6720 ([facility]) (test code = [facility] Osborne [facility] 1538) [address] CALCIUM, [id number] 06:31:00 Test Item Value Reference Range Interpretation Comments CALCIUM IONIZED (BEAKER) (test 1.07 mmol/L 1.12-1.27 L code = 698) PH, BLOOD (BEAKER) (test code = 7.38 1810) [id number] 04:51:00 Test Item Value Reference Range Interpretation Comments PHOSPHORUS (BEAKER) (test code = 3.2 mg/dL 2.3-4.7 604) [id number] 04:51:00 Test Item Value Reference Range Interpretation Comments MAGNESIUM (BEAKER) (test code = 2.1 mg/dL 1.6-2.6 627) BASIC METABOLIC [id number] 04:51:00 Test Item Value Reference Range Interpretation [...] PATIEN TS. CBC W/PLT COUNT & AUTO [id number] 04:27:00 Test Item Value Reference Range Interpretation [...] PERCENT (BEAKER) (test code = 2801) POCT-GLUCOSE [id number] 23:48:00 Test Item Value Reference Range Interpretation Comments POC-GLUCOSE METER 123 mg/dL 70-110 H TESTED AT [facility] 6720 (BEAKER) (test code = [facility] Osborne [facility] 1538) [address] POCT-GLUCOSE [id number] 16:46:00 Test Item Value Reference Range Interpretation Comments POC-GLUCOSE METER 178 mg/dL 70-110 H TESTED AT [facility] 6720 (BEAKER) (test code = BANNER Dylon [facility] 1538) [address] BASIC METABOLIC [id number] 05:53:00 Test Item Value Reference Range Interpretation [...] S NOT APPLICABLE FOR DIALYSIS PATIEN TS. [id number] 05:52:00 Test Item Value Reference Range Interpretation Comments PHOSPHORUS (BEAKER) (test code = 4.2 mg/dL 2.3-4.7 604) [id number] 05:52:00 Test Item Value Reference Range Interpretation Comments MAGNESIUM (BEAKER) (test code = 2.3 mg/dL 1.6-2.6 627) CALCIUM, [id number] 05:27:00 Test Item Value Reference Range Interpretation Comments CALCIUM IONIZED (BEAKER) (test 1.12 mmol/L 1.12-1.27 code = 698) PH, BLOOD (BEAKER) (test code = 7.38 1810) CBC W/PLT COUNT & AUTO [id number] 05:07:00 Test Item Value Reference Range Interpretation [...] = 2801) RAD, CHEST, 1 VIEW, NON [id number] 04:45:00Reason for exam:->pl effusionShould this be performed at the bedside?->YesFINAL REPORT RAD, CHEST, 1 VIEW, NON DEPT INDICATION: pl effusion COMPARISON:Prior day's exam FINDINGS: Portable frontal view of the chest. IMPRESSION: Support Lines: Stable.Lungs and pleura: Unchanged airspace and pleural opacities. No pneumothorax.Heart and mediastinum: Stable contours. Stable surgical changes.Additional findings: None. Signed: JR Boswell Robert MDReport Verified Date/Time: 05/25/2017 04:45:08 Reading Location: [facility] C013Y CT Body Reading Room POCT-GLUCOSE [id number] 01:52:00 Test Item Value Reference Range Interpretation Comments POC-GLUCOSE METER 126 mg/dL 70-110 H TESTED AT [facility] 6720 (BEAKER) (test code = JULIAN[place] 1538) [address] POCT-GLUCOSE [id number] 13:07:00 Test Item Value Reference Range Interpretation Comments POC-GLUCOSE METER 118 mg/dL 70-110 H TESTED AT [facility] 6720 (BEAKER) (test code = JULIANO [place] 1538) [address] BRONCHIAL CULTURE + GRAM [id number] 11:35:00 Test Item Value Reference Range Interpretation [...] <1+ gram (BEAKER) (test code = positive 123523) cocci in pairs GRAM STAIN RESULT 1+ gram (BEAKER) (test code = variable rods 138837) 1+ Normal respiratory todd presentRAD, CHEST, 1 VIEW, NON [id number] 06:50:00Reason for exam:->pl effusionShould this be performed at the bedside?->YesFINAL REPORT RAD, CHEST, 1 VIEW, NON DEPT INDICATION: pl effusion COMPARISON:Prior day's exam FINDINGS: Portable frontal view of the chest. IMPRESSION: Support Lines: Stable.Lungs and pleura: Unchanged airspace and pleural opacities. No pneumothorax.Heart and mediastinum: Stable contours. Stable surgical changes.Additional findings: None. Signed: JR Boswell Robert MDReport Verified Date/Time: 05/24/2017 06:50:08 Reading Location: [facility] B1 C013Y CT Body Reading Room BASIC METABOLIC [id number] 04:19:00 Test Item Value Reference Range Interpretation [...] NOT APPLICABLE FOR DIALYSIS PATIEN TS. CALCIUM, [id number] 04:16:00 Test Item Value Reference Range Interpretation Comments CALCIUM IONIZED (BEAKER) (test 1.06 mmol/L 1.12-1.27 L code = 698) PH, BLOOD (BEAKER) (test code = 7.40 1810) [id number] 04:11:00 Test Item Value Reference Range Interpretation Comments PHOSPHORUS (BEAKER) (test code = 6.0 mg/dL 2.3-4.7 H 604) [id number] 04:11:00 Test Item Value Reference Range Interpretation Comments MAGNESIUM (BEAKER) (test code = 2.4 mg/dL 1.6-2.6 627) CBC W/PLT COUNT & AUTO [id number] 03:50:00 Test Item Value Reference Range Interpretation [...] PERCENT (BEAKER) (test code = 2801) POCT-GLUCOSE [id number] 20:45:00 Test Item Value Reference Range Interpretation Comments POC-GLUCOSE METER 143 mg/dL 70-110 H TESTED AT [facility] 6720 [facility] (test code = [facility] 1538) [address] POCT-GLUCOSE [id number] 20:45:00 Test Item Value Reference Range Interpretation Comments POC-GLUCOSE METER 145 mg/dL 70-110 H TESTED AT [facility] 6720 ([facility]) (test code = [facility] 1538) [address] [id number] 13:37:00 Test Item Value Reference Range Interpretation Comments PREALBUMIN (BEAKER) 10 mg/dL 14-45 L Specimen slightly (test code = 586) hemolyzed OXYGEN SATURATION, [id number] 12:31:00 Test Item Value Reference Range Interpretation Comments O2 SATURATION (MEASURED) (BEAKER) 94.5 % (test code = 1455) [id number] 11:02:00 Test Item Value Reference Range Interpretation Comments PREALBUMIN (BEAKER) (test code = 10 mg/dL 14-45 L 586) RAD, CHEST, 1 VIEW, NON [id number] 05:14:00while patient is intubated or has chest [...] ALEXANDREepemily Verified Date/Time: 05/23/2017 05:14:04 Reading Location: [facility] C013Y CT Body Reading Room BASIC METABOLIC [id number] 03:48:00 Test Item Value Reference Range Interpretation [...] S NOT APPLICABLE FOR DIALYSIS PATIEN TS. [id number] 03:46:00 Test Item Value Reference Range Interpretation Comments MAGNESIUM (BEAKER) 2.4 mg/dL 1.6-2.6 Specimen slightly (test code = 627) hemolyzed [id number] 03:46:00 Test Item Value Reference Range Interpretation Comments PHOSPHORUS (BEAKER) 6.5 mg/dL 2.3-4.7 H Specimen slightly (test code = 604) hemolyzed CBC W/PLT COUNT & AUTO [id number] 03:26:00 Test Item Value Reference Range Interpretation [...] (BEAKER) (test code = 2801) BLOOD GAS, [id number] 03:18:00 Test Item Value Reference Range Interpretation [...] (test code = 1819) 36.0 % CALCIUM, [id number] 16:32:00 Test Item Value Reference Range Interpretation Comments CALCIUM IONIZED (BEAKER) (test 1.11 mmol/L 1.12-1.27 L code = 698) PH, BLOOD (BEAKER) (test code = 7.39 1810) BASIC METABOLIC [id number] 15:43:00 Test Item Value Reference Range Interpretation [...] NOT APPLICABLE FOR DIALYSIS PATIEN TS. POCT-GLUCOSE [id number] 12:53:00 Test Item Value Reference Range Interpretation Comments POC-GLUCOSE METER 118 mg/dL 70-110 H TESTED AT [facility] 6720 (BEAKER) (test code = JULIANO [place] 1538) [address] BLOOD GAS, [id number] 10:42:00 Test Item Value Reference Range Interpretation [...] (test code = 1819) 40.0 % POCT-GLUCOSE [id number] 06:46:00 Test Item Value Reference Range Interpretation Comments POC-GLUCOSE METER 106 mg/dL 70-110 TESTED AT [facility] 6720 (AKER) (test code = JULIANO Osborne [facility] 1538) [address] RAD, CHEST, 1 VIEW, NON [id number] 05:05:00while patient is intubated or has chest [...] MDReport Verified Date/Time: 05/22/2017 05:05:00 Reading Location: [facility] C013Y CT Body ReadingRoom BASIC METABOLIC [id number] 05:00:00 Test Item Value Reference Range Interpretation [...] S NOT APPLICABLE FOR DIALYSIS PATIEN TS. [id number] 04:41:00 Test Item Value Reference Range Interpretation Comments PHOSPHORUS (BEAKER) (test code = 6.4 mg/dL 2.3-4.7 H 604) [id number] 04:41:00 Test Item Value Reference Range Interpretation Comments MAGNESIUM (BEAKER) (test code = 2.6 mg/dL 1.6-2.6 627) CALCIUM, [id number] 04:26:00 Test Item Value Reference Range Interpretation Comments CALCIUM IONIZED (BEAKER) (test 1.09 mmol/L 1.12-1.27 L code = 698) PH, BLOOD (BEAKER) (test code = 7.40 1810) OXYGEN SATURATION, [id number] 04:25:00 Test Item Value Reference Range Interpretation Comments O2 SATURATION (MEASURED) (BEAKER) 77.0 % (test code = 1455) CBC W/PLT COUNT & AUTO [id number] 04:17:00 Test Item Value Reference Range Interpretation [...] code = 2801) LACTIC ACID, ARTERIAL, WHOLE [id number] 00:07:00 Test Item Value Reference Range Interpretation Comments LACTATE BLOOD 1.0 mmol/L 0.5-2.2 Specimen sligh tly ARTERIAL (2) (BEAKER) hemoly zed (test code = 2874) Effective 08/02/2015: Units/Reference Range ChangeNew: 0.5-2.2 mmol/L Previous: 5-20 mg/dLPOCT-GLUCOSE [id number] 23:47:00 Test Item Value Reference Range Interpretation Comments POC-GLUCOSE METER 180 mg/dL 70-110 H TESTED AT [facility] 6720 (BEAKER) (test code = JULIANO [place] 1538) [address] BLOOD GAS, [id number] 23:46:00 Test Item Value Reference Range Interpretation [...] code = 1819) 100.0 % SODIUM NA-STAT [id number] 23:46:00 Test Item Value Reference Range Interpretation Comments SODIUM (BEAKER) (test code = 381) 134 meq/L 135-148 L GLUCOSE-STAT [id number] 23:46:00 Test Item Value Reference Range Interpretation Comments GLUCOSE RANDOM (BEAKER) (test code 119 mg/dL 70-110 H = 652) HGB/HCT (H&H) - STAT [id number] 23:46:00 Test Item Value Reference Range Interpretation Comments HEMOGLOBIN (BEAKER) (test code = 8.8 g/dL 12.0-15.0 L 410) HEMATOCRIT (BEAKER) (test code = 26.0 % 36.0-45.0 L 411) OXYGEN SATURATION, [id number] 23:45:00 Test Item Value Reference Range Interpretation Comments O2 SATURATION (MEASURED) (BEAKER) 68.1 % (test code = 1455) POTASSIUM-STAT [id number] 23:45:00 Test Item Value Reference Range Interpretation Comments POTASSIUM ([facility]) (test code = 5.5 meq/L 3.6-5.5 379) POCT-GLUCOSE [id number] 20:58:00 Test Item Value Reference Range Interpretation Comments POC-GLUCOSE METER 133 mg/dL 70-110 H TESTED AT [place] [address] ([facility]) (test code = JULIANO Osborne [facility] 1538) [address] POCT-GLUCOSE [id number] 17:58:00 Test Item Value Reference Range Interpretation Comments POC-GLUCOSE METER 210 mg/dL 70-110 H TESTED AT [place] [address] ([facility]) (test code = JULIANO Osborne [facility] 1538) [address] POCT-GLUCOSE [id number] 17:58:00 Test Item Value Reference Range Interpretation Comments POC-GLUCOSE METER 211 mg/dL 70-110 H TESTED AT [place] [address] ([facility]) (test code = JULIANO Osborne [facility] 1538) [address] POCT-GLUCOSE [id number] 17:58:00 Test Item Value Reference Range Interpretation Comments POC-GLUCOSE METER 232 mg/dL 70-110 H TESTED AT [place] [address] ([facility]) (test code = JULIANO Osborne [facility] 1538) [address] POCT-GLUCOSE [id number] 17:58:00 Test Item Value Reference Range Interpretation Comments POC-GLUCOSE METER 262 mg/dL 70-110 H TESTED AT [place] [address] ([facility]) (test code = BANNER Dylon [facility] 1538) [address] BLOOD GAS, [id number] 17:01:00 Test Item Value Reference Range Interpretation [...] (test code = 1819) 60.0 % POTASSIUM-STAT [id number] 17:00:00 Test Item Value Reference Range Interpretation Comments POTASSIUM (BEAKER) (test code = 4.8 meq/L 3.6-5.5 379) POCT-GLUCOSE [id number] 15:52:00 Test Item Value Reference Range Interpretation Comments POC-GLUCOSE METER 267 mg/dL 70-110 H TESTED AT [facility] 6720 (BEAKER) (test code = [facility] 1538) [address] POCT-GLUCOSE [id number] 14:42:00 Test Item Value Reference Range Interpretation Comments POC-GLUCOSE METER 231 mg/dL 70-110 H TESTED AT [facility] 67 (BEAKER) (test code = [facility] 1538) 73744 BODY FLUID CELL COUNT WITH [id number] 14:41:00 Test Item Value Reference Range Interpretation [...] Tube (test code = 2873) BASIC METABOLIC [id number] 14:11:00 Test Item Value Reference Range Interpretation [...] S NOT APPLICABLE FOR DIALYSIS PATIEN TS. [id number] 14:08:00 Test Item Value Reference Range Interpretation Comments PHOSPHORUS (BEAKER) (test code = 7.2 mg/dL 2.3-4.7 H 604) [id number] 14:08:00 Test Item Value Reference Range Interpretation Comments MAGNESIUM (BEAKER) (test code = 2.6 mg/dL 1.6-2.6 627) POCT-GLUCOSE [id number] 12:49:00 Test Item Value Reference Range Interpretation Comments POC-GLUCOSE METER 224 mg/dL 70-110 H TESTED AT [place] [address] ([facility]) (test code = JULIANO Osborne [facility] 1538) [address] POCT-GLUCOSE [id number] 12:49:00 Test Item Value Reference Range Interpretation Comments POC-GLUCOSE METER 248 mg/dL 70-110 H TESTED AT [place] [address] ([facility]) (test code = JULIANO Osborne [facility] 1538) [address] RAD, CHEST, 1 VIEW, NON [id number] 12:32:00Reason for exam:->re-intubationShould this be performed at [...] MDReport Verified Date/Time: 05/21/2017 12:32:08 Reading Location: [facility] Reading Room POTASSIUM-STAT [id number] 12:28:00 Test Item Value Reference Range Interpretation Comments POTASSIUM (BEAKER) (test code = 5.5 meq/L 3.6-5.5 379) BLOOD GAS, [id number] 12:28:00 Test Item Value Reference Range Interpretation [...] code = 1819) 100.0 % BLOOD GAS, [id number] 10:53:00 Test Item Value Reference Range Interpretation [...] 36.0 % RAD, CHEST, 1 VIEW, NON [id number] 08:46:00while patient is intubated or has chest [...] MDReport Verified Date/Time: 05/21/2017 08:46:27 Reading Location: [facility] Radiology Reading Room BLOOD GAS, [id number] 05:41:00 Test Item Value Reference Range Interpretation [...] (BEAKER) (test code = 1819) 40 CALCIUM, [id number] 04:35:00 Test Item Value Reference Range Interpretation Comments CALCIUM IONIZED (BEAKER) (test 1.13 mmol/L 1.12-1.27 code = 698) PH, BLOOD (BEAKER) (test code = 7.32 1810) BLOOD GAS, [id number] 04:28:00 Test Item Value Reference Range Interpretation [...] (BEAKER) (test code = 1819) 40.0 % [id number] 04:20:00 Test Item Value Reference Range Interpretation Comments PHOSPHORUS (BEAKER) (test code = 6.2 mg/dL 2.3-4.7 H 604) [id number] 04:20:00 Test Item Value Reference Range Interpretation Comments MAGNESIUM (BEAKER) (test code = 2.4 mg/dL 1.6-2.6 627) HEPATIC FUNCTION [id number] 04:20:00 Test Item Value Reference Range Interpretation [...] = 11 U/L 6-55 347) BASIC METABOLIC [id number] 04:20:00 Test Item Value Reference Range Interpretation [...] APPLICABLE FOR DIALYSIS PATIEN TS. OXYGEN SATURATION, [id number] 04:18:00 Test Item Value Reference Range Interpretation Comments O2 SATURATION (MEASURED) (BEAKER) 68.0 % (test code = 1455) LACTIC ACID, ARTERIAL, WHOLE [id number] 04:12:00 Test Item Value Reference Range Interpretation Comments LACTATE BLOOD ARTERIAL (2) 1.0 mmol/L 0.5-2.2 (BEAKER) (test code = 2874) Effective 08/02/2015: Units/Reference Range ChangeNew: 0.5-2.2 mmol/L Previous: 5-20 mg/dLCBC W/PLT COUNT & AUTO [id number] 04:00:00 Test Item Value Reference Range Interpretation [...] (BEAKER) (test code = 2801) BLOOD GAS, [id number] 00:06:00 Test Item Value Reference Range Interpretation [...] (BEAKER) (test code = 1819) 40.0 % [id number] 18:55:00 Test Item Value Reference Range Interpretation Comments PHOSPHORUS (BEAKER) (test code = 4.8 mg/dL 2.3-4.7 H 604) [id number] 18:55:00 Test Item Value Reference Range Interpretation Comments MAGNESIUM (BEAKER) (test code = 2.3 mg/dL 1.6-2.6 627) BASIC METABOLIC [id number] 18:55:00 Test Item Value Reference Range Interpretation [...] DIALYSIS PATIEN TS. LACTIC ACID, ARTERIAL, WHOLE [id number] 18:53:00 Test Item Value Reference Range Interpretation Comments LACTATE BLOOD 0.9 mmol/L 0.5-2.2 Specimen sligh tly ARTERIAL (2) (BEAKER) hemoly zed (test code = 2874) Effective 08/02/2015: Units/Reference Range ChangeNew: 0.5-2.2 mmol/L Previous: 5-20 mg/dLRAD, CHEST, 1 VIEW, NON [id number] 18:44:00Reason for exam:- >postop cardiacShould this be [...] MDReport Verified Date/Time: 05/20/2017 18:44:30 Reading Location: [address] Consult Reading Room Electronically signed by: MIGUEL BHAKTA M.D. on05/20/2017 06:44 PMCBC W/PLT COUNT & AUTO [id number] 18:38:00 Test Item Value Reference Range Interpretation [...] (BEAKER) (test code = 2801) OXYGEN SATURATION, [id number] 18:36:00 Test Item Value Reference Range Interpretation Comments O2 SATURATION (MEASURED) (BEAKER) 72.5 % (test code = 1455) From distal port of IJ central venous catheterSODIUM NA-STAT [id number] 18:30:00 Test Item Value Reference Range Interpretation Comments SODIUM (BEAKER) (test code = 381) 132 meq/L 135-148 L HGB/HCT (H&H) - STAT [id number] 18:30:00 Test Item Value Reference Range Interpretation Comments HEMOGLOBIN (BEAKER) (test code = 9.4 g/dL 12.0-15.0 L 410) HEMATOCRIT (BEAKER) (test code = 28.0 % 36.0-45.0 L 411) GLUCOSE-STAT [id number] 18:30:00 Test Item Value Reference Range Interpretation Comments GLUCOSE RANDOM (BEAKER) (test code 159 mg/dL 70-110 H = 652) BLOOD GAS, [id number] 18:30:00 Test Item Value Reference Range Interpretation [...] (test code = 1819) 60.0 % CALCIUM, [id number] 18:30:00 Test Item Value Reference Range Interpretation Comments CALCIUM IONIZED (BEAKER) (test 0.94 mmol/L 1.12-1.27 L code = 698) PH, BLOOD (BEAKER) (test code = 7.34 1810) POTASSIUM-STAT [id number] 18:28:00 Test Item Value Reference Range Interpretation [...] 62.8 MM 55.0-65.0 (test code = 1413) [facility]) (test 0.0 % 0.0-5.0 code = 1414) [id number] 17:53:00 Test Item Value Reference Range Interpretation Comments ACTIVATED CLOTTING TIME 103 sec TEST ED AT [place] [address] ([facility]) (test code = [place] [address]) [id number] 17:53:00 Test Item Value Reference Range Interpretation Comments ACTIVATED CLOTTING TIME 466 sec TEST ED AT [place] [address] ([facility]) (test code = [place] [address]) [id number] 17:53:00 Test Item Value Reference Range Interpretation Comments ACTIVATED CLOTTING TIME 543 sec TEST ED AT [place] [address] ([facility]) (test code = [place] [address]) [id number] 17:53:00 Test Item Value Reference Range Interpretation Comments ACTIVATED CLOTTING TIME 549 sec TEST ED AT [place] [address] ([facility]) (test code = [place] [address]) [id number] 17:53:00 Test Item Value Reference Range Interpretation Comments ACTIVATED CLOTTING TIME 632 sec TEST ED AT [place] [address] ([facility]) (test code = [place] [address]) [id number] 17:53:00 Test Item Value Reference Range Interpretation Comments ACTIVATED CLOTTING TIME 494 sec TEST ED AT [place] [address] ([facility]) (test code = [place] [address]) [address] [id number] 17:53:00 Test Item Value Reference Range Interpretation Comments ACTIVATED CLOTTING TIME 587 sec TEST ED AT [place] [address] ([facility]) (test code = [place]IASVERA [place] [address]) [address] [id number] 17:53:00 Test Item Value Reference Range Interpretation Comments ACTIVATED CLOTTING TIME 626 sec TEST ED AT [place] [address] ([facility]) (test code = [place]AS[place]A [place] [address]) [address] [id number] 17:52:00 Test Item Value Reference Range Interpretation Comments ACTIVATED CLOTTING TIME 808 sec TEST ED AT [place] [address] (BEAKER) (test code = [place]O [place] [address]) [address] [id number] 16:54:00 Test Item Value Reference Range Interpretation Comments PARTIAL THROMBOPLASTIN TIME 40.2 seconds 22.5-36.0 H (BEAKER) (test code = 760) [id number] 16:53:00 Test Item Value Reference Range Interpretation Comments FIBRINOGEN LEVEL (BEAKER) (test 306 mg/dl 225-434 code = 658) PROTHROMBIN [id number] 16:50:00 Test Item Value Reference Range Interpretation Comments PROTIME (BEAKER) (test code = 19.6 seconds 11.7-14.7 H 759) INR (BEAKER) (test code = 370) 1.7 <=5.9 RECOMMENDED COUMADIN/WARFARIN INR THERAPY RANGESSTANDARD DOSE: 2.0 - 3.0 Includes: PROPHYLAXIS forvenous thrombosis, systemic embolization; TREATMENT for venous thrombosis and/or pulmonary embolus.HIGH RISK: Target INR is 2.5-3.5 for patients with mechanical heart valves.PLATELET [id number] 16:45:00 Test Item Value Reference Range Interpretation Comments PLATELET COUNT (BEAKER) (test 136 K/CU MM 150-450 L code = 756) POTASSIUM-STAT [id number] 16:15:00 Test Item Value Reference Range Interpretation Comments POTASSIUM (BEAKER) (test code = 4.9 meq/L 3.6-5.5 379) BLOOD GAS, [id number] 16:15:00 Test Item Value Reference Range Interpretation [...] code = 1819) 100.0 % SODIUM NA-STAT [id number] 16:15:00 Test Item Value Reference Range Interpretation Comments SODIUM (BEAKER) (test code = 381) 131 meq/L 135-148 L GLUCOSE-STAT [id number] 16:15:00 Test Item Value Reference Range Interpretation Comments GLUCOSE RANDOM (BEAKER) (test code 198 mg/dL 70-110 H = 652) HGB/HCT (H&H) - STAT [id number] 16:15:00 Test Item Value Reference Range Interpretation Comments HEMOGLOBIN (BEAKER) (test code = 7.5 g/dL 12.0-15.0 L 410) HEMATOCRIT (BEAKER) (test code = 22.0 % 36.0-45.0 L 411) CALCIUM, [id number] 16:14:00 Test Item Value Reference Range Interpretation Comments CALCIUM IONIZED (BEAKER) (test 0.91 mmol/L 1.12-1.27 L code = 698) PH, BLOOD (BEAKER) (test code = 7.39 1810) BLOOD GAS, [id number] 15:39:00 Test Item Value Reference Range Interpretation [...] code = 1819) 70.0 % SODIUM NA-STAT [id number] 15:39:00 Test Item Value Reference Range Interpretation Comments SODIUM (BEAKER) (test code = 381) 131 meq/L 135-148 L GLUCOSE-STAT [id number] 15:39:00 Test Item Value Reference Range Interpretation Comments GLUCOSE RANDOM (BEAKER) (test code 186 mg/dL 70-110 H = 652) HGB/HCT (H&H) - STAT [id number] 15:39:00 Test Item Value Reference Range Interpretation Comments HEMOGLOBIN (BEAKER) (test code = 7.5 g/dL 12.0-15.0 L 410) HEMATOCRIT (BEAKER) (test code = 22.0 % 36.0-45.0 L 411) POTASSIUM-STAT [id number] 15:38:00 Test Item Value Reference Range Interpretation Comments POTASSIUM (BEAKER) (test code = 5.3 meq/L 3.6-5.5 379) BLOOD GAS, [id number] 15:24:00 Test Item Value Reference Range Interpretation [...] code = 1819) 70.0 % SODIUM NA-STAT [id number] 15:24:00 Test Item Value Reference Range Interpretation Comments SODIUM (BEAKER) (test code = 381) 130 meq/L 135-148 L GLUCOSE-STAT [id number] 15:24:00 Test Item Value Reference Range Interpretation Comments GLUCOSE RANDOM (BEAKER) (test code 189 mg/dL 70-110 H = 652) HGB/HCT (H&H) - STAT [id number] 15:24:00 Test Item Value Reference Range Interpretation Comments HEMOGLOBIN (BEAKER) (test code = 6.7 g/dL 12.0-15.0 L 410) HEMATOCRIT (BEAKER) (test code = 20.0 % 36.0-45.0 L 411) POTASSIUM-STAT [id number] 15:23:00 Test Item Value Reference Range Interpretation Comments POTASSIUM (BEAKER) (test code = 5.4 meq/L 3.6-5.5 379) BLOOD GAS, [id number] 15:07:00 Test Item Value Reference Range Interpretation [...] code = 1819) 70.0 % SODIUM NA-STAT [id number] 15:07:00 Test Item Value Reference Range Interpretation Comments SODIUM (BEAKER) (test code = 381) 129 meq/L 135-148 L GLUCOSE-STAT [id number] 15:07:00 Test Item Value Reference Range Interpretation Comments GLUCOSE RANDOM (BEAKER) (test code 172 mg/dL 70-110 H = 652) HGB/HCT (H&H) - STAT [id number] 15:07:00 Test Item Value Reference Range Interpretation Comments HEMOGLOBIN (BEAKER) (test code = 7.1 g/dL 12.0-15.0 L 410) HEMATOCRIT (BEAKER) (test code = 21.0 % 36.0-45.0 L 411) POTASSIUM-STAT [id number] 15:04:00 Test Item Value Reference Range Interpretation Comments POTASSIUM (BEAKER) (test code = 5.0 meq/L 3.6-5.5 379) BLOOD GAS, [id number] 14:21:00 Test Item Value Reference Range Interpretation [...] code = 1819) 70.0 % SODIUM NA-STAT [id number] 14:21:00 Test Item Value Reference Range Interpretation Comments SODIUM (BEAKER) (test code = 381) 133 meq/L 135-148 L GLUCOSE-STAT [id number] 14:21:00 Test Item Value Reference Range Interpretation Comments GLUCOSE RANDOM (BEAKER) (test code 160 mg/dL 70-110 H = 652) HGB/HCT (H&H) - STAT [id number] 14:21:00 Test Item Value Reference Range Interpretation Comments HEMOGLOBIN (BEAKER) (test code = 7.5 g/dL 12.0-15.0 L 410) HEMATOCRIT (BEAKER) (test code = 22.0 % 36.0-45.0 L 411) POTASSIUM-STAT [id number] 14:20:00 Test Item Value Reference Range Interpretation Comments POTASSIUM (BEAKER) (test code = 4.7 meq/L 3.6-5.5 379) BLOOD GAS, [id number] 13:58:00 Test Item Value Reference Range Interpretation [...] code = 1819) 80.0 % SODIUM NA-STAT [id number] 13:58:00 Test Item Value Reference Range Interpretation Comments SODIUM (BEAKER) (test code = 381) 132 meq/L 135-148 L GLUCOSE-STAT [id number] 13:58:00 Test Item Value Reference Range Interpretation Comments GLUCOSE RANDOM (BEAKER) (test code 166 mg/dL 70-110 H = 652) HGB/HCT (H&H) - STAT [id number] 13:58:00 Test Item Value Reference Range Interpretation Comments HEMOGLOBIN (BEAKER) (test code = 7.5 g/dL 12.0-15.0 L 410) HEMATOCRIT (BEAKER) (test code = 22.0 % 36.0-45.0 L 411) POTASSIUM-STAT [id number] 13:57:00 Test Item Value Reference Range Interpretation Comments POTASSIUM (BEAKER) (test code = 4.7 meq/L 3.6-5.5 379) BLOOD GAS, [id number] 13:35:00 Test Item Value Reference Range Interpretation [...] (test code = 1819) 80.0 % GLUCOSE-STAT [id number] 13:35:00 Test Item Value Reference Range Interpretation Comments GLUCOSE RANDOM (BEAKER) (test code 130 mg/dL 70-110 H = 652) HGB/HCT (H&H) - STAT [id number] 13:35:00 Test Item Value Reference Range Interpretation Comments HEMOGLOBIN (BEAKER) (test code = 6.7 g/dL 12.0-15.0 L 410) HEMATOCRIT (BEAKER) (test code = 20.0 % 36.0-45.0 L 411) SODIUM NA-STAT [id number] 13:35:00 Test Item Value Reference Range Interpretation Comments SODIUM (BEAKER) (test code = 381) 133 meq/L 135-148 L POTASSIUM-STAT [id number] 13:34:00 Test Item Value Reference Range Interpretation Comments POTASSIUM (BEAKER) (test code = 4.2 meq/L 3.6-5.5 379) BLOOD GAS, [id number] 13:16:00 Test Item Value Reference Range Interpretation [...] code = 1819) 80.0 % SODIUM NA-STAT [id number] 13:16:00 Test Item Value Reference Range Interpretation Comments SODIUM (BEAKER) (test code = 381) 133 meq/L 135-148 L HGB/HCT (H&H) - STAT [id number] 13:16:00 Test Item Value Reference Range Interpretation Comments HEMOGLOBIN (BEAKER) (test code = 6.3 g/dL 12.0-15.0 L 410) HEMATOCRIT (BEAKER) (test code = 19.0 % 36.0-45.0 L 411) CALCIUM, [id number] 13:15:00 Test Item Value Reference Range Interpretation Comments CALCIUM IONIZED (BEAKER) (test 0.98 mmol/L 1.12-1.27 L code = 698) PH, BLOOD (BEAKER) (test code = 7.34 1810) BLOOD GAS, [id number] 13:15:00 Test Item Value Reference Range Interpretation [...] (test code = 1819) 80.0 % GLUCOSE-STAT [id number] 13:14:00 Test Item Value Reference Range Interpretation Comments GLUCOSE RANDOM (BEAKER) (test code = 92 mg/dL 70-110 652) POTASSIUM-STAT [id number] 13:14:00 Test Item Value Reference Range Interpretation Comments POTASSIUM (BEAKER) (test code = 3.9 meq/L 3.6-5.5 379) BLOOD GAS, [id number] 10:54:00 Test Item Value Reference Range Interpretation [...] 1819) 100.0 % HGB/HCT (H&H) - STAT [id number] 10:54:00 Test Item Value Reference Range Interpretation Comments HEMOGLOBIN (BEAKER) (test code = 9.3 g/dL 12.0-15.0 L 410) HEMATOCRIT (BEAKER) (test code = 27.0 % 36.0-45.0 L 411) SODIUM NA-STAT [id number] 10:54:00 Test Item Value Reference Range Interpretation Comments SODIUM (BEAKER) (test code = 381) 132 meq/L 135-148 L GLUCOSE-STAT [id number] 10:52:00 Test Item Value Reference Range Interpretation Comments GLUCOSE RANDOM (BEAKER) (test code = 94 mg/dL 70-110 652) POTASSIUM-STAT [id number] 10:52:00 Test Item Value Reference Range Interpretation Comments POTASSIUM (BEAKER) (test code = 4.0 meq/L 3.6-5.5 379) HEMOGLOBIN [id number] 09:50:00 Test Item Value Reference Range Interpretation Comments HEMOGLOBIN A1C (BEAKER) (test code = 10.6 % 4.3-6.1 H 368) PLATELET AGGREGATION: FUNCTION [id number] 08:27:00 Test Item Value Reference Range Interpretation Comments WEAK ADP 63 % 60-91 RESULT(BEAKER) (test code = 2135) PLATELET FUNCTION 60-100% indicates SCREEN INTERP (BEAKER) normal platelet (test code = 2173) function [id number] Toshia Post MD [facility] (test code = (electronic signature) 3047) PLATELET COUNT AGG 198 K/CU MM 150-450 (BEAKER) (test code = 2656) for patients on clopidogrel in past two weeksPOCT-GLUCOSE [id number] 08:11:00 Test Item Value Reference Range Interpretation Comments POC-GLUCOSE METER 116 mg/dL 70-110 H TESTED AT [facility] 6720 (BEAKER) (test code = [place] 1538) [address] [id number] 07:10:00 Test Item Value Reference Range Interpretation Comments PHOSPHORUS (BEAKER) (test code = 4.5 mg/dL 2.3-4.7 604) [id number] 07:10:00 Test Item Value Reference Range Interpretation Comments MAGNESIUM (BEAKER) (test code = 2.1 mg/dL 1.6-2.6 627) BASIC METABOLIC [id number] 07:10:00 Test Item Value Reference Range Interpretation [...] = 700) CBC W/PLT COUNT & AUTO [id number] 06:46:00 Test Item Value Reference Range Interpretation [...] PERCENT (BEAKER) (test code = 2801) CALCIUM, [id number] 06:40:00 Test Item Value Reference Range Interpretation Comments CALCIUM IONIZED (BEAKER) (test 1.06 mmol/L 1.12-1.27 L code = 698) PH, BLOOD (BEAKER) (test code = 7.39 1810) POCT-GLUCOSE [id number] 23:22:00 Test Item Value Reference Range Interpretation Comments POC-GLUCOSE METER 165 mg/dL 70-110 H TESTED AT [facility] 6720 (BEAKER) (test code = [place] 1538) [address] URINE PROTEIN ELECTROPHORESIS, [id number] 18:02:00 Test Item Value Reference Range Interpretation Comments PROTEIN, URINE 305 mg/dL 0-14 H (BEAKER) (test code = 1569) ALBUMIN URINE ELP 70.9 % (BEAKER) (test code = 1018) GAMMA GLOBULIN URINE 29.1 % (BEAKER) (test code = 1015) UPEP, ID-438 (BEAKER) No monoclonal bands (test code = 4958) detected. [id number] Rocio Galindo MD ([facility]) (test code = (electronic signature) 5850) PROTEIN ELECTROPHORESIS, [id number] 17:57:00 Test Item Value Reference Range Interpretation [...] all globulin fractions. No monoclonal bands detected. [id number] Rocio Galindo MD ([facility]) (test code = (electronic signature) 0063) PROTEIN TOTAL SERUM, 5.5 gm/dL 6.0-8.3 L SPEP (BEAKER) (test code = 6270) POCT-GLUCOSE [id number] 17:15:00 Test Item Value Reference Range Interpretation Comments POC-GLUCOSE METER 209 mg/dL 70-110 H TESTED AT [facility] 6720 (BEAKER) (test code = [place] 1538) [address] BLOOD GAS, [id number] 15:54:00 Test Item Value Reference Range Interpretation [...] 36.0 % RAD, CHEST, 1 VIEW, NON [id number] 14:07:00Reason for exam:->SOB, hypoxemiaShould this be performed [...] Regan Cespedes Verified Date/Time: 05/19/2017 14:07:07 Reading Location:[address] Consult Reading Room POCT-GLUCOSE [id number] 11:26:00 Test Item Value Reference Range Interpretation Comments POC-GLUCOSE METER 262 mg/dL 70-110 H TESTED AT [place] [address] ([facility]) (test code = JULIANO Osborne [facility] 1538) [address] POCT-GLUCOSE [id number] 07:37:00 Test Item Value Reference Range Interpretation Comments POC-GLUCOSE METER 170 mg/dL 70-110 H TESTED AT [place] [address] ([facility]) (test code = JULIANO Osborne [facility] 1538) [address] CALCIUM, [id number] 06:06:00 Test Item Value Reference Range Interpretation Comments CALCIUM IONIZED (BEAKER) (test 1.05 mmol/L 1.12-1.27 L code = 698) PH, BLOOD ([facility]) (test code = 7.41 1810) [id number] 05:38:00 Test Item Value Reference Range Interpretation Comments PHOSPHORUS (BEAKER) (test code = 3.9 mg/dL 2.3-4.7 604) [id number] 05:38:00 Test Item Value Reference Range Interpretation Comments MAGNESIUM (BEAKER) (test code = 2.2 mg/dL 1.6-2.6 627) BASIC METABOLIC [id number] 05:38:00 Test Item Value Reference Range Interpretation [...] PATIEN TS. CBC W/PLT COUNT & AUTO [id number] 05:09:00 Test Item Value Reference Range Interpretation [...] PERCENT (BEAKER) (test code = 2801) POCT-GLUCOSE [id number] 22:08:00 Test Item Value Reference Range Interpretation Comments POC-GLUCOSE METER 263 mg/dL 70-110 H TESTED AT [place] [address] ([facility] (test code = JULIANO Osborne [facility] 1538) [address] POCT-GLUCOSE [id number] 17:20:00 Test Item Value Reference Range Interpretation Comments POC-GLUCOSE METER 233 mg/dL 70-110 H TESTED AT [place] [address] (BEAKER) (test code = JULIANO Osborne [facility] 1538) [address] POCT-GLUCOSE [id number] 08:28:00 Test Item Value Reference Range Interpretation Comments POC-GLUCOSE METER 154 mg/dL 70-110 H TESTED AT [place] [address] (BEAKER) (test code = JULIANO Osborne [facility] 1538) [address] BASIC METABOLIC [id number] 06:41:00 Test Item Value Reference Range Interpretation [...] S NOT APPLICABLE FOR DIALYSIS PATIEN TS. [id number] 06:35:00 Test Item Value Reference Range Interpretation Comments PHOSPHORUS (BEAKER) (test code = 4.1 mg/dL 2.3-4.7 604) [id number] 06:35:00 Test Item Value Reference Range Interpretation Comments MAGNESIUM (BEAKER) (test code = 2.1 mg/dL 1.6-2.6 627) CALCIUM, [id number] 06:22:00 Test Item Value Reference Range Interpretation Comments CALCIUM IONIZED (BEAKER) (test 1.10 mmol/L 1.12-1.27 L code = 698) PH, BLOOD (BEAKER) (test code = 7.38 1810) CBC W/PLT COUNT & AUTO [id number] 06:04:00 Test Item Value Reference Range Interpretation [...] PERCENT (BEAKER) (test code = 2801) POCT-GLUCOSE [id number] 03:44:00 Test Item Value Reference Range Interpretation Comments POC-GLUCOSE METER 220 mg/dL 70-110 H TESTED AT [facility] 6720 (BEAKER) (test code = [place] 1538) [address] POCT-GLUCOSE [id number] 18:27:00 Test Item Value Reference Range Interpretation Comments POC-GLUCOSE METER 256 mg/dL 70-110 H TESTED AT [place] [address] ([facility]) (test code = [place] 1538) [address] POCT-GLUCOSE [id number] 15:45:00 Test Item Value Reference Range Interpretation Comments POC-GLUCOSE METER 278 mg/dL 70-110 H TESTED AT [place] [address] ([facility]) (test code = [place] 1538) [address] POCT-GLUCOSE [id number] 13:22:00 Test Item Value Reference Range Interpretation Comments POC-GLUCOSE METER 278 mg/dL 70-110 H TESTED AT [place] [address] ([facility]) (test code = [place] 1538) [address] PLATELET AGGREGATION: FUNCTION [id number] 13:18:00 Test Item Value Reference Range Interpretation Comments WEAK ADP 66 % 60-91 RESULT([facility]) (test code = 2135) PLATELET FUNCTION 60-100% indicates SCREEN INTERP ([facility]) normal platelet (test code = 2173) function [id number] Rigoberto Duenas MD ([facility]) (test code = (electronic signature) 2622) PLATELET COUNT AGG 204 K/CU MM 150-450 ([facility]) (test code = 2656) POCT-GLUCOSE [id number] 08:27:00 Test Item Value Reference Range Interpretation Comments POC-GLUCOSE METER 189 mg/dL 70-110 H TESTED AT [place] [address] ([facility]) (test code = BANNER Dylon [facility] 1538) [address] CALCIUM, [id number] 06:12:00 Test Item Value Reference Range Interpretation Comments CALCIUM IONIZED (AKER) (test 1.07 mmol/L 1.12-1.27 L code = 698) PH, BLOOD ([facility]) (test code = 7.36 1810) [id number] 05:43:00 Test Item Value Reference Range Interpretation Comments PHOSPHORUS (BEAKER) (test code = 3.6 mg/dL 2.3-4.7 604) [id number] 05:43:00 Test Item Value Reference Range Interpretation Comments MAGNESIUM (BEAKER) (test code = 2.1 mg/dL 1.6-2.6 627) BASIC METABOLIC [id number] 05:43:00 Test Item Value Reference Range Interpretation [...] PATIEN TS. CBC W/PLT COUNT & AUTO [id number] 05:05:00 Test Item Value Reference Range Interpretation [...] PERCENT (BEAKER) (test code = 2801) POCT-GLUCOSE [id number] 21:32:00 Test Item Value Reference Range Interpretation Comments POC-GLUCOSE METER 176 mg/dL 70-110 H TESTED AT [place] [address] ([facility]) (test code = [facility] 1538) [address] POCT-GLUCOSE [id number] 20:27:00 Test Item Value Reference Range Interpretation Comments POC-GLUCOSE METER 161 mg/dL 70-110 H TESTED AT [place] [address] ([facility]) (test code = [facility] 1538) [address] POCT-GLUCOSE [id number] 18:23:00 Test Item Value Reference Range Interpretation Comments POC-GLUCOSE METER 185 mg/dL 70-110 H TESTED AT [place] [address] ([facility]) (test code = [facility] 1538) [address] POCT-GLUCOSE [id number] 13:26:00 Test Item Value Reference Range Interpretation Comments POC-GLUCOSE METER 282 mg/dL 70-110 H TESTED AT [place] [address] ([facility]) (test code = [facility] 1538) [address] URINE [id number] 10:12:00 Test Item Value Reference Range Interpretation Comments CULTURE (BEAKER) (test >100,000 col/mL skin code = 1095) todd POCT-GLUCOSE [id number] 09:01:00 Test Item Value Reference Range Interpretation Comments POC-GLUCOSE METER 268 mg/dL 70-110 H TESTED AT [facility] 6720 (BEAKER) (test code = [place]IAN[place] 1538) [address] CALCIUM, [id number] 05:39:00 Test Item Value Reference Range Interpretation Comments CALCIUM IONIZED (BEAKER) (test 0.84 mmol/L 1.12-1.27 L code = 698) PH, BLOOD (BEAKER) (test code = 7.35 1810) BASIC METABOLIC [id number] 05:07:00 Test Item Value Reference Range Interpretation [...] S NOT APPLICABLE FOR DIALYSIS PATIEN TS. [id number] 05:06:00 Test Item Value Reference Range Interpretation Comments PHOSPHORUS (BEAKER) (test code = 3.2 mg/dL 2.3-4.7 604) [id number] 05:06:00 Test Item Value Reference Range Interpretation Comments MAGNESIUM (BEAKER) (test code = 2.3 mg/dL 1.6-2.6 627) CBC W/PLT COUNT & AUTO [id number] 04:42:00 Test Item Value Reference Range Interpretation [...] = 2801) RHEUMATOID FACTOR AB, REFLEX TO [id number] 01:52:00 Test Item Value Reference Range Interpretation Comments RHEUMATOID FACTOR (ROBERT) (test Negative code = 573) POCT-GLUCOSE [id number] 21:57:00 Test Item Value Reference Range Interpretation Comments POC-GLUCOSE METER 105 mg/dL 70-110 TESTED AT [facility] 6720 (ROBERT) (test code = JULIANO Osborne [facility] 1538) [address] POCT-GLUCOSE [id number] 18:11:00 Test Item Value Reference Range Interpretation Comments POC-GLUCOSE METER 312 mg/dL 70-110 H Notified Dylon Austin MD/TESTED (ROBERT) (test code = AT [facility] 67[address] [facility] 1538) [facility] 7703 0 PET, CARDIAC PERFUSION MULTIPLE STUDIES, REST AND [id number] 16:28:00 Reason for exam:->pvcs, known cadFINAL REPORT PROCEDURE: Rest/Stress MYOCARDIAL PERFUSION PET with regadenoson\\XA9\\ CPT CODE: 87734 INDICATION: Defined extent and severity of known [...] is 23%. LVEF at stress is 36%. Activities Therapist CT images revealed a right pleural effusion [...] pleural and pericardial effusions. 7. No previous [facility] study for comparison. NONINVASIVE RISK STRATIFICATION: The above findings are considered high risk (>3% annual mortality rate) based on the following criteria: - Severe resting left ventricular dysfunction (LVEF 35%)- Stress-induced large perfusion defect (particularly if anterior)(JACC. 2012;59(9):857-81.) Signed: Natan Whaley Verified Date/Time: 05/15/2017 16:28:12 Reading Location: [address] ReadingRoom RAD, CHEST, 1 VIEW, NON [id number] 15:56:00Reason for exam:->SOBShould this be performed at the bedside?->YesFINAL REPORT Comparison: 05/14/2017 TECHNIQUE: Single view of the chest FINDINGS: There is a small right pleural effusion with nonspecific airspace disease. This is unchanged. Left lung is grossly clear. Cardiac silhouette is enlarged. IMPRESSION: 1. No acute cardiopulmonary disease. Signed: Sixto Monk MDReport Verified Date/Time: 05/15/2017 15:56:39 Reading Location: [facility] Rad iology Reading Room POCT-GLUCOSE [id number] 12:54:00 Test Item Value Reference Range Interpretation Comments POC-GLUCOSE METER 308 mg/dL 70-110 H Notified R Sonya PIERRE/TESTED (ROBERT) (test code = AT [facility] 67[address] [facility] 1538) [facility] 7[address] 0 U/S, RENAL WITH [id number] 11:04:00Reason for exam:->tracy, htnShould this be performed [...] [place] Verified Date/Time: 05/15/2017 11:04:01 Reading Location: [place] [id number] Ultrasound Reading Room ANA TITER AND [id number] 10:57:00 Test Item Value Reference Range Interpretation Comments ROGER TITER (BEAKER) (test code = :160 1541) ROGER PATTERN (BEAKER) (test code = Speckled 1781) ANTI-NUCLEAR ANTIBODY (ROGER)2017-05-15 10:56:00 Test Item Value Reference Range Interpretation Comments ANTI-NUCLEAR ANTIBODY (ROGER) (BEAKER) Positive Negative A (test code = 418) CALCIUM, [id number] 06:00:00 Test Item Value Reference Range Interpretation Comments CALCIUM IONIZED (BEAKER) (test 1.07 mmol/L 1.12-1.27 L code = 698) PH, BLOOD (BEAKER) (test code = 7.28 1810) HEPATITIS PANEL, [id number] 05:01:00 Test Item Value Reference Range Interpretation Comments HEPATITIS A IGM ANTIBODY (BEAKER) Nonreactive Nonreactive (test code = 498) HEPATITIS B CORE IGM ANTIBODY Nonreactive Nonreactive (BEAKER) (test code = 645) HEPATITIS C ANTIBODY (BEAKER) Nonreactive Nonreactive (test code = 367) HEPATITIS B SURFACE ANTIGEN (2) Nonreactive Nonreactive (BEAKER) (test code = 2585) BASIC METABOLIC [id number] 04:48:00 Test Item Value Reference Range Interpretation [...] NOT APPLICABLE FOR DIALYSIS PATIEN TS. URIC [id number] 04:41:00 Test Item Value Reference Range Interpretation Comments URIC ACID (BEAKER) (test code = 10.3 mg/dL 2.6-7.2 H 773) [id number] 04:41:00 Test Item Value Reference Range Interpretation Comments MAGNESIUM (BEAKER) (test code = 2.0 mg/dL 1.6-2.6 627) [id number] 04:41:00 Test Item Value Reference Range Interpretation Comments PHOSPHORUS (BEAKER) (test code = 4.2 mg/dL 2.3-4.7 604) COMPLEMENT COMPONENT [id number] 04:38:00 Test Item Value Reference Range Interpretation Comments C4 COMPLEMENT (BEAKER) (test code = 28 mg/dL 15-57 394) COMPLEMENT COMPONENT [id number] 04:38:00 Test Item Value Reference Range Interpretation Comments C3 COMPLEMENT (BEAKER) (test code = 103 mg/dL 82-193 393) CBC W/PLT COUNT & AUTO [id number] 04:22:00 Test Item Value Reference Range Interpretation [...] PERCENT (BEAKER) (test code = 2801) POCT-GLUCOSE [id number] 21:46:00 Test Item Value Reference Range Interpretation Comments POC-GLUCOSE METER 173 mg/dL 70-110 H TESTED AT [facility] 6720 [facility] (test code = [place] 1538) [address] POCT-GLUCOSE [id number] 21:46:00 Test Item Value Reference Range Interpretation Comments POC-GLUCOSE METER 154 mg/dL 70-110 H TESTED AT [facility] 6720 ([facility] (test code = [place] 1538) [address] POCT-GLUCOSE [id number] 18:17:00 Test Item Value Reference Range Interpretation Comments POC-GLUCOSE METER 175 mg/dL 70-110 H TESTED AT [facility] 6720 ([facility]) (test code = JULIANO Osborne [facility] 1538) [address] RAD, CHEST, 1 VIEW, NON [id number] 14:56:00Reason for exam:->SOBShould this be performed at the bedside?->YesFINAL REPORT INDICATION: SOB COMPARISON: May 13, 2017 TECHNIQUE: Chest radiograph, single view, portable technique. FINDINGS / IMPRESSION: Enlarged heart shadow, small rightpleural effusion, and pulmonary venous congestion, again demonstrated. No pneumothorax or consolidation. Osseous structures unremarkable. Signed: Thania Dwyer Verified Date/Time: 05/14/2017 14:56:58 Reading Location: [facility] Mammo Reading Room POCT-GLUCOSE [id number] 12:18:00 Test Item Value Reference Range Interpretation Comments POC-GLUCOSE METER 313 mg/dL 70-110 H TESTED AT [facility] 67 ([facility]) (test code = JULIANO Osborne [facility] 1538) [address] HIV-1 ANTIGEN WITH HIV-1/2 [id number] 12:07:00 Test Item Value Reference Range Interpretation Comments HIV-1 ANTIGEN WITH HIV 1\\T\\2 Nonreactive Nonreactive ANTIBODY (2) ([facility]) (test code = 2586) CALCIUM, [id number] 06:37:00 Test Item Value Reference Range Interpretation Comments CALCIUM IONIZED (BEAKER) (test 1.08 mmol/L 1.12-1.27 L code = 698) PH, BLOOD (BEAKER) (test code = 7.25 1810) BASIC METABOLIC [id number] 06:26:00 Test Item Value Reference Range Interpretation [...] pg/mL 0-100 H (test code = 700) [id number] 06:25:00 Test Item Value Reference Range Interpretation Comments PHOSPHORUS (BEAKER) (test code = 5.7 mg/dL 2.3-4.7 H 604) [id number] 06:25:00 Test Item Value Reference Range Interpretation Comments MAGNESIUM (BEAKER) (test code = 1.5 mg/dL 1.6-2.6 L 627) CBC W/PLT COUNT & AUTO [id number] 06:07:00 Test Item Value Reference Range Interpretation [...] PERCENT (BEAKER) (test code = 2801) POCT-GLUCOSE [id number] 22:38:00 Test Item Value Reference Range Interpretation Comments POC-GLUCOSE METER 262 mg/dL 70-110 H TESTED AT [facility] 6720 (BEAKER) (test code = JULIANO Osborne [place] 1538) [address] PROTEIN, RANDOM [id number] 22:18:00 Test Item Value Reference Range Interpretation Comments PROTEIN, URINE (BEAKER) (test code 641 mg/dL 0-14 H = 1569) CREATININE, RANDOM [id number] 22:07:00 Test Item Value Reference Range Interpretation Comments CREATININE URINE (BEAKER) (test 124.9 mg/dL code = 375) Reference Range: No NormalsURINALYSIS W/ [id number] 22:03:00 Test Item Value Reference Range Interpretation [...] 1585) SOURCE(BEAKER) (test code = Urine, Voided 8659) [id number] 19:49:00 Test Item Value Reference Range Interpretation Comments SODIUM (BEAKER) (test 136 meq/L 136-145 code = 381) POTASSIUM (BEAKER) 5.1 meq/L 3.5-5.1 Specimen slightly (test code = 379) hemolyzed CHLORIDE (BEAKER) 104 meq/L 98-107 (test code = 382) CO2 (BEAKER) (test 25 meq/L 22-29 code = 355) Call if K > 5POCT-GLUCOSE [id number] 11:37:00 Test Item Value Reference Range Interpretation Comments POC-GLUCOSE METER 293 mg/dL 70-110 H TESTED AT [facility] 67 (BEAKER) (test code = [place]O [place] 1538) [address] RAD, CHEST, 1 VIEW, NON [id number] 10:22:00Reason for exam:->SOBShould this be performed at the bedside?->YesFINAL REPORT Chest one view Discussion: There is cardiomegaly and interstitial congestion. A small right-sided effusion is noted. No pneumothorax. IMPRESSIONS: Suspected CHF. Signed: Jeannette Navaeport Verified Date/Time: 05/13/2017 10:22:34 Reading Location: [facility] Radiology Reading Room POCT-GLUCOSE METER 2017-05-13 08:34:00 Test Item Value Reference Range Interpretation Comments POC-GLUCOSE METER 178 mg/dL 70-110 H TESTED AT [facility] 6720 (BEAKER) (test code = JULIANO Osborne [facility] 1538) [address] POCT-GLUCOSE [id number] 06:53:00 Test Item Value Reference Range Interpretation Comments POC-GLUCOSE METER 167 mg/dL 70-110 H TESTED AT [facility] 6720 (BEAKER) (test code = BANNER Dylon [facility] 1538) [address] [id number] 04:48:00 Test Item Value Reference Range Interpretation Comments BLOOD UREA NITROGEN (BEAKER) (test 36 mg/dL 7-21 H code = 354) [id number] 04:48:00 Test Item Value Reference Range Interpretation Comments SODIUM (BEAKER) (test code = 381) 139 meq/L 136-145 POTASSIUM (BEAKER) (test code = 5.2 meq/L 3.5-5.1 H 379) CHLORIDE (BEAKER) (test code = 382) 109 meq/L 98-107 H CO2 (BEAKER) (test code = 355) 23 meq/L 22-29 [id number] 04:48:00 Test Item Value Reference Range Interpretation [...] WBC 0-0 (BEAKER) (test code = 413) [id number] 23:29:00 Test Item Value Reference Range Interpretation Comments ACTIVATED CLOTTING TIME 136 sec TEST ED AT [place] [address] ([facility]) (test code = JULIANO [place] [facility]) [address] [id number] 20:13:00 Test Item Value Reference Range Interpretation Comments ACTIVATED CLOTTING TIME 175 sec TEST ED AT [place] [address] ([facility]) (test code = JULIANO [place] [facility]) [address] [id number] 18:36:00 Test Item Value Reference Range Interpretation Comments ACTIVATED CLOTTING TIME 202 sec TEST ED AT [place] [address] ([facility]) (test code = [place] 441) [address] [id number] 18:03:00 Test Item Value Reference Range Interpretation Comments ACTIVATED CLOTTING TIME 208 sec TEST ED AT [facility] 6720 (BEAKER) (test code = [place]O [place] 441) [address] BASIC METABOLIC [id number] 11:57:00 Test Item Value Reference Range Interpretation [...] NOT APPLICABLE FOR DIALYSIS PATIEN TS. PROTHROMBIN [id number] 11:15:00 Test Item Value Reference Range Interpretation [...] if on CoumadinCBC W/PLT COUNT & AUTO [id number] 11:01:00 Test Item Value Reference Range Interpretation [...] PERCENT (BEAKER) (test code = 2801) POCT-GLUCOSE [id number] 12:35:00 Test Item Value Reference Range Interpretation Comments POC-GLUCOSE METER 249 mg/dL 70-110 H TESTED AT [facility] 6720 (BEAKER) (test code = [place] 1538) [address] POCT-GLUCOSE [id number] 09:10:00 Test Item Value Reference Range Interpretation Comments POC-GLUCOSE METER 155 mg/dL 70-110 H TESTED AT [facility] 6720 (BEAKER) (test code = JULIANO Osborne [facility] 1538) [address] BASIC METABOLIC [id number] 05:39:00 Test Item Value Reference Range Interpretation [...] S NOT APPLICABLE FOR DIALYSIS PATIEN TS. [id number] 05:27:00 Test Item Value Reference Range Interpretation Comments PHOSPHORUS (BEAKER) (test code = 5.0 mg/dL 2.3-4.7 H 604) [id number] 05:27:00 Test Item Value Reference Range Interpretation Comments MAGNESIUM (BEAKER) (test code = 1.6 mg/dL 1.6-2.6 627) POCT-GLUCOSE [id number] 05:25:00 Test Item Value Reference Range Interpretation Comments POC-GLUCOSE METER 144 mg/dL 70-110 H TESTED AT [facility] 6720 (BEAKER) (test code = JULIANO Osborne [facility] 1538) [address] PROTHROMBIN [id number] 04:58:00 Test Item Value Reference Range Interpretation Comments PROTIME (BEAKER) (test code = 14.2 seconds 11.7-14.7 759) INR (BEAKER) (test code = 370) 1.1 <=5.9 RECOMMENDED COUMADIN/WARFARIN INR THERAPY RANGESSTANDARD DOSE: 2.0 - 3.0 Includes: PROPHYLAXIS forvenous thrombosis, systemic embolization; TREATMENT for venous thrombosis and/or pulmonary embolus.HIGH RISK: Target INR is 2.5-3.5 for patients with mechanical heart valves.POCT-GLUCOSE [id number] 23:55:00 Test Item Value Reference Range Interpretation Comments POC-GLUCOSE METER 86 mg/dL 70-110 TESTED AT [place] [address] ([facility]) (test code = [facility] [address] 1538) B-TYPE NATRIURETIC FACTOR (BNP)2017-04-22 18:13:00 Test Item Value Reference Range Interpretation Comments B-TYPE NATRIURETIC PEPTIDE 1203 pg/mL 0-100 H ([facility]) (test code = 700) POCT-GLUCOSE [id number] 17:36:00 Test Item Value Reference Range Interpretation Comments POC-GLUCOSE METER 259 mg/dL 70-110 H TESTED AT [place] [address] ([facility]) (test code = [facility] 1538) [address] HEMOGLOBIN [id number] 14:24:00 Test Item Value Reference Range Interpretation Comments HEMOGLOBIN A1C ([facility]) (test code = 10.5 % 4.3-6.1 H 368) POCT-GLUCOSE [id number] 12:34:00 Test Item Value Reference Range Interpretation Comments POC-GLUCOSE METER 207 mg/dL 70-110 H TESTED AT [place] [address] ([facility]) (test code = [facility] 1538) [address] [id number] 07:53:00 Test Item Value Reference Range Interpretation Comments PHOSPHORUS ([facility]) (test code = 3.9 mg/dL 2.3-4.7 604) [id number] 07:53:00 Test Item Value Reference Range Interpretation Comments MAGNESIUM (BEAKER) (test code = 1.6 mg/dL 1.6-2.6 627) BASIC METABOLIC [id number] 07:53:00 Test Item Value Reference Range Interpretation Comments SODIUM ([facility]) 139 meq/L 136-145 (test code = 381) POTASSIUM ([facility]) 4.5 meq/L 3.5-5.1 (test code = 379) [...] NOT APPLICABLE FOR DIALYSIS PATIEN TS. TROPONIN [id number] 07:29:00 Test Item Value Reference Range Interpretation [...] acidosis, acute neurological disease, and persistent tachyarrhythmia.PROTHROMBIN [id number] 07:01:00 Test Item Value Reference Range Interpretation Comments PROTIME (BEAKER) (test code = 13.8 seconds 11.7-14.7 759) INR (BEAKER) (test code = 370) 1.1 <=5.9 RECOMMENDED COUMADIN/WARFARIN INR THERAPY RANGESSTANDARD DOSE: 2.0 - 3.0 Includes: PROPHYLAXIS forvenous thrombosis, systemic embolization; TREATMENT for venous thrombosis and/or pulmonary embolus.HIGH RISK: Target INR is 2.5-3.5 for patients with mechanical heart valves.POCT-GLUCOSE [id number] 06:28:00 Test Item Value Reference Range Interpretation Comments POC-GLUCOSE METER 198 mg/dL 70-110 H TESTED AT [facility] 6720 (BEAKER) (test code = JULIANO [place] 1538) [address] CREATINE KINASE (CK), TOTAL AND [id number] 00:49:00 Test Item Value Reference Range Interpretation Comments CREATINE KINASE TOTAL (ROBERT) 69 U/L 29-200 (test code = 380) [facility]IN[facility]-MB [facility] (test 4.3 ng/mL 0.0-6.6 code = 750) CREATINE KINASE-MB INDEX ([facility]) 6.2 % (test code = 395) CK-MB Reference Range:<6.7 Normal6.7-10.0 Borderline>10.0 AbnormalTROPONIN [id number] 00:49:00 Test Item Value Reference Range Interpretation [...] acidosis, acute neurological disease, and persistent tachyarrhythmia.POCT-GLUCOSE [id number] 20:44:00 Test Item Value Reference Range Interpretation Comments POC-GLUCOSE METER 269 mg/dL 70-110 H TESTED AT [facility] 6720 (ROBERT) (test code = JULIANO Osborne [facility] 1538) [address]
[2020-02-27 00:59] LABS: Absolute Lymphocytes (CBC) 1.5 K/uL (0.7-4.9); Basophils % 0.5 % (0-1.3); Hematocrit 25.3 % (36.0-45.0); Lymphocytes % 11.1 % (15.3-44.8); MPV 6.9 fL (7.6-11.3); RBC Red Blood Cell Count 2.82 M/uL (3.86-4.86)
[2020-02-27 01:01] LABS: Protime INR 1.43
[2020-02-27 01:08] LABS: Urine Blood 2+ (NEG); Urine Glucose NEGATIVE (NEG); Urine Protein 3+ (NEG); Urine Specific Gravity 1.025 (1.005-1.030)
[2020-02-27 01:15] LABS: Albumin 1.9 g/dL (3.4-5.0); Bilirubin Direct 0.3 mg/dL (0-0.2); Bilirubin Total 0.6 mg/dL (0.2-1.0); C-Reactive Protein 30.2 mg/L (<3.00); CKMB Creatine Kinase MB 4.1 ng/mL (0.3-3.6); Potassium 4.5 mmol/L (3.5-5.1); Protein, Total 7.2 g/dL (6.4-8.2)
[2020-02-27 01:17] LABS: Troponin (Emerg Dept Use Only) 0.65 ng/mL (0.0-0.045)
[2020-02-27 02:10] LABS: Urine Bacteria LOADED /HPF (<20)
[2020-02-27 02:11] LABS: Urine Mucus 2+ /HPF (NONE SEEN)
--- NOTE | 2020-02-27 02:18 | ER ---
Nurse's Notes [facility] Name: Christy Priest Age: 64 yrs Sex: Female : 1955 Arrival Date: 02/26/2020 Time: 23:59 Bed 20 Private MD: Diagnosis: Dyspnea;Right Pleural Effusion;CHF Exacerbation;UTI;Sepsis Presentation: 02/26 00:00 Chief complaint: EMS states: pt complaining of shortness of breath with abdominal sg distention as well has having swelling to BLE, pt has had dialysis treatment but unsure of how much was removed at this time. Coronavirus screen: Client denies travel out of the [place] in the last 14 days. At this time, the client does not indicate any symptoms associated with coronavirus-19. Ebola Screen: Patient negative for fever greater than or equal to 101.5 degrees Fahrenheit, and additional compatible Ebola Virus Disease symptoms Patient denies exposure to infectious person. Patient denies travel to an Ebola-affected area in the 21 days before illness onset. No symptoms or risks identified at this time. Initial Sepsis Screen: Does the patient meet any 2 criteria? RR > 20 per min. Systolic BP < 90 mmHg. Yes Does the patient have a suspected source of infection? Yes: Skin breakdown/wound. Risk Assessment: Do you want to hurt yourself or someone else? Patient reports no desire to harm self or others. Onset of symptoms was February 27, 2020. Care prior to arrival: None. Transition of care: patient was not received from another setting of care. 00:00 Acuity: DENNY 2 sg 00:00 Method Of Arrival: EMS: [facility] sg Historical: - Allergies: 00:57 Augmentin; sg 00:57 basil; sg 00:57 Clindamycin; sg 00:57 Morphine; sg 00:57 Nitroglycerin; sg 00:57 Tramadol HCl; sg 00:57 Trazodone; sg 00:57 Vancomycin; sg 00:57 Vicodin; sg - Home Meds: 03:24 gabapentin Oral [Active]; Hydralazine Oral [Active]; insulin [Active]; Lasix Oral lp1 [Active]; Plavix Oral [Active]; - PMHx: 00:57 ADD/ADHD; CHF; COPD; Diabetes - IDDM; ESRD; High Cholesterol; Hypertension; uterine sg cancer; triple bypass; - Immunization history:: Adult Immunizations up to date. - Social history:: Smoking status: Patient/guardian denies using tobacco, the patient reports quitting approximately 5 years ago. Screenin:30 Abuse screen: Denies threats or abuse. Denies injuries from another. Nutritional lp1 screening: No deficits noted. Tuberculosis screening: No symptoms or risk factors identified. Fall Risk Total Merlos Fall Scale indicates High Risk Score (45 or more points). Fall prevention measures have been instituted. Side Rails Up X 2 Frequent Obs/Assessments Occuring As available patient and family educated on Fall Prevention Program and Strategies. Assessment: 00:00 General: Appears in no apparent distress. Behavior is calm. Pain: Complains of pain in lp1 generalized body Quality of pain is described as aching. Neuro: Level of Consciousness is obeys commands, Oriented to person, place, aroused by verbal stimuli . Cardiovascular: Reports shortness of breath, Patient's skin is warm and dry. Edema pitting to left midcalf, left ankle, left foot, right midcalf, right ankle and right foot Rhythm is sinus rhythm Dialysis shunt: in the anterior aspect of left upper chest. Respiratory: Reports shortness of breath Respiratory effort is even, Respiratory pattern is regular, Breath sounds are diminished bilaterally. GI: Abdomen is distended, noted to have ascites, Bowel sounds present X 4 quads. : No signs and/or symptoms were reported regarding the genitourinary system. EENT: No signs and/or symptoms were reported regarding the EENT system. Derm: Skin is fragile, is thin, with poor turgor Skin is dry, Skin is jaundiced, Skin temperature is warm Superficial abrasions to R lower ankle, small abrasions to L lower ankle. Musculoskeletal: No deficits noted. 01:00 Reassessment: Patient appears in no apparent distress at this time. Patient resting, lp1 eyes closed, respirations even, unlabored; repositioning self in bed independently. 02:30 Reassessment: Hospitalist at bedside to discuss plan of care. lp1 03:23 Reassessment: primary nurse notified for repeat lactate reflex order per lab, a sg specimen label will be printed for the collection. 03:25 Reassessment: Patient resting, eyes closed, respirations even, unlabored; aware of lp1 pending admission. Vital Signs: 00:00 BP 85 / 42; Pulse 92; Resp 26; Temp 97.9; Pulse Ox 100% on R/A; sg 00:00 BP 87 / 52; Pulse 90; Resp 18; Pulse Ox 97% on R/A; lp1 00:30 BP 92 / 52; Pulse 60; Resp 16; Pulse Ox 97% on R/A; lp1 01:30 BP 90 / 56; Pulse 59; ea 02:00 BP 102 / 57; Pulse 56; Resp 24; Pulse Ox 98% ; ea 02:14 Weight 75.75 kg (R); lp1 03:00 BP 96 / 55; Pulse 59; Resp 14; Pulse Ox 98% on R/A; lp1 03:29 BP 100 / 55; Pulse 59; Resp 14; Pulse Ox 97% on R/A; lp1 03:54 BP 97 / 57; Pulse 60; Resp 14; Pulse Ox 97% on R/A; lp1 ED Course: 02/25 23:59 Patient arrived in ED. am2 02/26 00:00 Miguel Nicholas MD is Attending Physician. mh7 00:00 Arm band placed on. sg 00:13 Rayna Priest, GUILHERME is Primary Nurse. lp1 00:30 Patient has correct armband on for positive identification. Placed in gown. Bed in low lp1 position. Side rails up X2. teletypesetter monitor on. Pulse ox on. NIBP on. 00:30 Inserted saline lock: 20 gauge in right forearm, using aseptic technique. Blood lp1 collected. 00:30 Initial lab(s) drawn, by ED staff, sent to lab. First set of blood cultures drawn by ED sg staff. Second set of blood cultures drawn by ED staff. 00:55 Kami Pompa FNP-C is PHCP. snw 00:56 Triage completed. sg 00:58 Straight cath inserted, using sterile technique, 16 Fr. Specimen obtained. ea 01:02 X-ray completed. Portable x-ray completed in exam room. Patient tolerated procedure mh1 well. 01:03 Chest Single View XRAY In Process Unspecified. EDMS 01:04 Urine Microscopic Only Sent. ds4 01:07 Notified ED physician of a critical lab result(s). D-Dimer 2644. lp1 01:19 Notified ED physician of a critical lab result(s). Troponin 0.65, Lactate 4.0. lp1 02:16 Fer Muñiz is Hospitalizing Provider. mh7 02:30 Inserted saline lock: 20 gauge in left forearm, using aseptic technique. lp1 03:23 No provider procedures requiring assistance completed. Patient admitted, IV remains in lp1 place. Administered Medications: 02:25 Drug: Albumin 25 grams Volume: 100 ml; Route: IVPB; Site: right forearm; lp1 03:25 Follow up: IV Status: Completed infusion; IV Intake: 100ml lp1 02:30 Drug: LevaQUIN 500 mg Volume: 100 ml; Route: IVPB; Infused Over: 60 mins; Site: left lp1 forearm; 03:37 Follow up: IV Status: Completed infusion; IV Intake: 100ml lp1 03:37 Drug: Lasix 20 mg Route: IVP; Site: left forearm; lp1 03:55 Follow up: Response: No adverse reaction lp1 Intake: 03:25 IV: 100ml; Total: 100ml. lp1 03:37 IV: 100ml; Total: 200ml. lp1 Outcome: 02:17 Decision to Hospitalize by Provider. 7 03:23 Condition: stable lp1 03:23 Instructed on the need for admit. 03:32 Admitted to Med/surg via stretcher, room 224, with chart, Report called to GUILHERME Rueda 1 03:55 Patient left the ED. lp1 Signatures: Dispatcher [employer] EDMS Aba Mendez RN RN sg Waters, Shelly, PLASTIC SURGERY ASSISTANT-C PLASTIC SURGERY ASSISTANT-Csnw Susan Pearson 1 Rayna Priest RN RN 1 Kailash Franco4 Maria A Muse Elena, RN RN ea Holmes, Maurice, MD MD 7 Corrections: (The following items were deleted from the chart) 02:06 02:00 BP 102 / 57; Pulse 56bpm; Resp 19bpm; Pulse Ox 98%; ea sharan
--- NOTE | 2020-02-27 02:18 | EDPHYS ---
Physician Documentation [facility] Name: Christy Priest Age: 64 yrs Sex: Female : 1955 Arrival Date: 02/26/2020 Time: 23:59 Bed 20 Private MD: ED Physician Miguel Nicholas HPI: 02/26 00:07 This 64 yrs old Female presents to ER via Unassigned with complaints of AMS, snw SOB. 00:07 The patient has shortness of breath at rest. Onset: The symptoms/episode began/occurred snw gradually. Duration: The symptoms are continuous. The patient's shortness of breath is aggravated by supine position, abd pressure. Associated signs and symptoms: Pertinent positives: edema, decrease LOC. Severity of symptoms: At their worst the symptoms were severe. The patient has experienced similar episodes in the past, chronically. It is unknown whether or not the patient has recently seen a physician. Rec'd dialysis today. Historical: - Allergies: 00:57 Augmentin; sg 00:57 basil; sg 00:57 Clindamycin; sg 00:57 Morphine; sg 00:57 Nitroglycerin; sg 00:57 Tramadol HCl; sg 00:57 Trazodone; sg 00:57 Vancomycin; sg 00:57 Vicodin; sg - Home Meds: 03:24 gabapentin Oral [Active]; Hydralazine Oral [Active]; insulin [Active]; Lasix Oral lp1 [Active]; Plavix Oral [Active]; - PMHx: 00:57 ADD/ADHD; CHF; COPD; Diabetes - IDDM; ESRD; High Cholesterol; Hypertension; uterine sg cancer; triple bypass; - Immunization history:: Adult Immunizations up to date. - Social history:: Smoking status: Patient/guardian denies using tobacco, the patient reports quitting approximately 5 years ago. ROS: 00:07 Constitutional: Negative for fever, chills, and weight loss, Eyes: Negative for injury, snw pain, redness, and discharge, ENT: Negative for injury, pain, and discharge, Neck: Negative for injury, pain, and swelling, Cardiovascular: Negative for chest pain, palpitations, and edema, Abdomen/GI: Negative for abdominal pain, nausea, vomiting, diarrhea, and constipation, Back: Negative for injury and pain, : Negative for injury, bleeding, discharge, and swelling, MS/Extremity: Negative for injury and deformity, Skin: Negative for injury, rash, and discoloration, Neuro: Negative for headache, weakness, numbness, tingling, and seizure, Psych: Negative for depression, anxiety, suicide ideation, homicidal ideation, and hallucinations. 00:07 Respiratory: Positive for shortness of breath, at rest. Exam: 00:00 Head/Face: Normocephalic, atraumatic. Eyes: Pupils equal round and reactive to light, snw extra-ocular motions intact. Lids and lashes normal. Conjunctiva and sclera are non-icteric and not injected. Cornea within normal limits. Periorbital areas with no swelling, redness, or edema. ENT: Nares patent. No nasal discharge, no septal abnormalities noted. Tympanic membranes are normal and external auditory canals are clear. Oropharynx with no redness, swelling, or masses, exudates, or evidence of obstruction, uvula midline. Mucous membranes moist. Neck: Trachea midline, no thyromegaly or masses palpated, and no cervical lymphadenopathy. Supple, full range of motion without nuchal rigidity, or vertebral point tenderness. No Meningismus. Chest/axilla: Normal chest wall appearance and motion. Nontender with no deformity. No lesions are appreciated. 00:00 Back: No spinal tenderness. No costovertebral tenderness. Full range of motion. 00:00 Constitutional: The patient appears awake, listless, uncomfortable, jaundiced 00:00 Cardiovascular: Rate: normal, Heart sounds: gallop, Edema: anasarca, Dialysis shunt: left chest wall . 00:00 ECG was reviewed by the Attending Physician. 00:00 Respiratory: the patient does not display signs of respiratory distress, Respirations: normal, Breath sounds: decreased breath sounds, that are mild, rhonchi, are located in both bases. 00:00 Abdomen/GI: Inspection: distension, that is moderate, gravid appearance, vessels palpable, edema, anasarca. 00:00 Skin: Appearance: Color: jaundiced, Temperature: cool, Moisture: dry, petechiae, not noted, skin tear to right lower ext, wound dressed per EMS. 00:00 Neuro: Orientation: somnolent. Vital Signs: 00:00 BP 85 / 42; Pulse 92; Resp 26; Temp 97.9; Pulse Ox 100% on R/A; sg 00:00 BP 87 / 52; Pulse 90; Resp 18; Pulse Ox 97% on R/A; lp1 00:30 BP 92 / 52; Pulse 60; Resp 16; Pulse Ox 97% on R/A; lp1 01:30 BP 90 / 56; Pulse 59; ea 02:00 BP 102 / 57; Pulse 56; Resp 24; Pulse Ox 98% ; ea 02:14 Weight 75.75 kg (R); lp1 03:00 BP 96 / 55; Pulse 59; Resp 14; Pulse Ox 98% on R/A; lp1 03:29 BP 100 / 55; Pulse 59; Resp 14; Pulse Ox 97% on R/A; lp1 03:54 BP 97 / 57; Pulse 60; Resp 14; Pulse Ox 97% on R/A; lp1 MDM: 00:22 Patient medically screened. snw 00:56 Data reviewed: vital signs, nurses notes, lab test result(s), EKG, radiologic studies. snw 02:15 Differential diagnosis: Anemia Anxiety Reaction asthma, Bronchitis CHF exacerbation, mh7 Chronic Obstructive Pulmonary Disease Myocardial Infarction pneumonia, pulmonary edema, reactive airway disease. Data interpreted: Pulse oximetry: on room air is 98 %. Interpretation: normal. Counseling: I had a detailed discussion with the patient and/or guardian regarding: the historical points, exam findings, and any diagnostic results supporting the discharge/admit diagnosis, lab results, radiology results, the need for further work-up and treatment in the hospital. Response to treatment: the patient's symptoms have mildly improved after treatment. 02/26 00:06 Order name: D-Dimer; Complete Time: snw 02/26 00:06 Order name: T\T\S; Complete Time: snw 02/26 00:06 Order name: Urine Culture snw 02/26 00:06 Order name: C-Reactive Protein; Complete Time: w 02/26 00:06 Order name: Amylase, Serum; Complete Time: w 02/26 00:06 Order name: Basic Metabolic Panel; Complete Time: : snw 02/26 00:06 Order name: Blood Culture Adult (2) snw 02/26 00:06 Order name: CBC with Diff; Complete Time: : snw 02/26 00:06 Order name: Ckmb; Complete Time: :w 02/26 00:06 Order name: CPK; Complete Time: :w 02/26 00:06 Order name: Lactate; Complete Time: :w 02/26 00:06 Order name: LFT's; Complete Time: :23 w 02/26 00:06 Order name: Lipase; Complete Time: : snw 02/26 00:06 Order name: Cath; Complete Time: 00:58 w 02/26 00:06 Order name: Procalcitonin; Complete Time: 01:36 snw 02/26 00:06 Order name: Protime (+inr); Complete Time: :w 02/26 00:06 Order name: Ptt, Activated; Complete Time: :w 02/26 00:06 Order name: Troponin (emerg Dept Use Only); Complete Time: : snw 02/26 00:06 Order name: Urine Microscopic Only; Complete Time: 02:14 snw 02/26 00:06 Order name: Chest Single View XRAY 02/26 00:06 Order name: Accucheck; Complete Time: 01:08 w 02/26 00:06 Order name: Cardiac monitoring; Complete Time: 00:15 w 02/26 00:06 Order name: EKG - Nurse/Tech; Complete Time: 00:15 w 02/26 00:06 Order name: IV Saline Lock - Large Bore; Complete Time: 01:08 snw 02/26 00:06 Order name: AMMONIA; Complete Time: : snw 02/26 01:04 Order name: Urine Dipstick--Ancillary (enter results); Complete Time: :23 ds4 02/26 00:06 Order name: Labs collected and sent; Complete Time: 01:08 snw 02/26 00:06 Order name: O2 Per Protocol; Complete Time: 00:15 snw 02/26 00:06 Order name: O2 Sat Monitoring; Complete Time: 00:15 snw 02/26 00:06 Order name: Urine Dipstick-Ancillary (obtain specimen); Complete Time: 01:02 snw EC:10 Rate is 60 beats/min. Rhythm is regular. ID interval is normal. QRS interval is snw prolonged. QT interval is prolonged. No Q waves. T waves are Inverted in leads I, aVL, V2, V3, V4, V5. Clinical impression: NSR w/ Non-specific ST/T Changes. Administered Medications: 02:25 Drug: Albumin 25 grams Volume: 100 ml; Route: IVPB; Site: right forearm; lp1 03:25 Follow up: IV Status: Completed infusion; IV Intake: 100ml 1 02:30 Drug: LevaQUIN 500 mg Volume: 100 ml; Route: IVPB; Infused Over: 60 mins; Site: left lp1 forearm; 03:37 Follow up: IV Status: Completed infusion; IV Intake: 100ml lp1 03:37 Drug: Lasix 20 mg Route: IVP; Site: left forearm; lp1 03:55 Follow up: Response: No adverse reaction 1 Disposition: 07:21 Co-signature as Attending Physician, Miguel Nicholas MD. 7 Disposition: 02/27/20 02:17 Hospitalization ordered by Fer Muñiz for Inpatient Admission. Preliminary diagnosis are Dyspnea, Right Pleural Effusion, CHF Exacerbation, UTI, Sepsis. - Bed requested for Telemetry/MedSurg (Inpatient). - Status is Inpatient Admission. lp1 - Condition is Stable. - Problem is an acute exacerbation. - Symptoms have improved. Signatures: Dispatcher [employer] [facility] Aba Mednez RN RN Kami Pompa, DATA MINER-C DATA MINER-[employer] Rayna Priest RN RN [facility] Kaci Glass RN RN Miguel Nicholas MD MD 7 Corrections: (The following items were deleted from the chart) 00:12 00:08 BILIRUBIN, DIRECT+C.LAB.BRZ ordered. [facility] 03:10 02:17 Hospitalization Ordered by Fer Muñiz for Inpatient Admission. Preliminary cg diagnosis is Dyspnea; Right Pleural Effusion; CHF Exacerbation; UTI; Sepsis. Bed requested for Telemetry/MedSurg (Inpatient). Status is Inpatient Admission. Condition is Stable. Problem is an acute exacerbation. Symptoms have improved. [facility] 03:17 03:10 02/27/2020 02:17 Hospitalization Ordered by Fer Muñiz for Inpatient cg Admission. Preliminary diagnosis is Dyspnea; Right Pleural Effusion; CHF Exacerbation; UTI; Sepsis. Bed requested for Telemetry/MedSurg (Inpatient). Status is Inpatient Admission. Condition is Stable. Problem is an acute exacerbation. Symptoms have improved. cg 03:55 03:17 02/27/2020 02:17 Hospitalization Ordered by Fer Muñiz for Inpatient lp1 Admission. Preliminary diagnosis is Dyspnea; Right Pleural Effusion; CHF Exacerbation; UTI; Sepsis. Bed requested for Telemetry/MedSurg (Inpatient). Status is Inpatient Admission. Condition is Stable. Problem is an acute exacerbation. Symptoms have improved. cg
[2020-02-27] MEDS ORDERED: Levofloxacin500mg IV 500 MG/100 ML BAG IV ONE (02:34)
[2020-02-27] MEDS ORDERED: FUROSEMIDE 20 MG/ 2ML VIAL ONE (02:34)
[2020-02-27] MEDS ORDERED: ALBUMIN HUMAN 25% 100 ML IV ONE (02:35)
--- NOTE | 2020-02-27 03:00 | P.HP ---
Certification for Inpatient Patient admitted to: Inpatient With expected LOS: >2 Midnights Practitioner: I am a practitioner with admitting privileges, knowledge of patient current condition, hospital course, and medical plan of care. Services: Services provided to patient in accordance with Admission requirements found in Title 42 Section 412.3 of the Code of Federal Regulations Patient History Date of Service: 02/27/20 Reason for admission: Shortness of breath History of Present Illness: 64-year-old woman with a history of end-stage renal disease on hemodialysis, diabetes mellitus, chronic systolic and diastolic heart failure, multiple hospitalizations presented to the emergency department with a complaint of shortness of breath of onset this morning. Patient is on hemodialysis on Friday and Friday and completed the usual 3 hrs of dialysis. She presented to the ED with a complaint of shortness of breath. Chest x-ray done in the ED demonstrated increased right-sided pleural effusion. Patient has facial edema, and increased lower extremity edema. She denied any fever. I suspect dietary indiscretion causing CHF exacerbation. Her initial troponin is elevated to 0.65. Pro calcitonin and lactate are also elevated. UA suggest the presence of UTI. Patient is hospitalized for further management. Allergies morphine Allergy (Severe, Verified 02/27/20 04:42) Anaphylaxis vancomycin Allergy (Intermediate, Verified 02/27/20 04:42) Shortness of breath basil Allergy (Verified 02/27/20 04:42) Nausea/Vomiting tramadol Allergy (Verified 02/27/20 04:42) Nausea/Vomiting trazodone Allergy (Verified 02/27/20 04:42) Nausea/Vomiting nitroglycerin Adverse Reaction (Mild, Verified 02/27/20 04:42) Nausea/Vomiting - Past Medical/Surgical History Diabetic: Yes -: COPD -: Hypertension -: CAD, CABG x4 vessels (August 2017) -: Diabetes mellitus type 2, insulin-dependent -: Chronic combined systolic/diastolic CHF -: Uterine cancer status post hysterectomy -: Chronic renal disease, stage IV -: TB as a child - Negative 2017 -: Hyperlipidemia -: Iron deficiency anemia -: WEST -: Likely obstructive sleep apnea -: Rectal surgery -: Hysterectomy -: Cholecystectomy -: Gastric surgery -: Appendectomy -: CABG x4 vessel -: RLE Femoral popliteal bypass -: Left great toe amputation Psychosocial/ Personal History: The patient is a . Her son lives with her. She has 3 children. - Family History Brother -: Heart disease, Hypertension Notes: Father -: Heart disease, Cancer Notes: - Prostate surgery - Hemorrhage Mother -: GI disease Notes: Sister -: Heart disease Notes: - Respiratory failure - Social History Alcohol use: No CD- Drugs: No Caffeine use: Yes Review of Systems Other: Patient denies any fever, denies any chest pain or abdominal pain. Except as documented, all other systems reviewed and negative. Physical Examination - Physical Exam General: Alert, In no apparent distress HEENT: PERRLA, Mucous membr. moist/pink, Other (Facial edema) Neck: Supple, JVD distended Respiratory: Diminished (On the right.), Other (Mild bibasilar rales.) Cardiovascular: Regular rate/rhythm, Normal S1 S2, Edema (2+ bilateral lower extremities) Capillary refill: <2 Seconds Gastrointestinal: Normal bowel sounds, Soft and benign, No tenderness Musculoskeletal: No tenderness Integumentary: Other (Multiple skin tears on bilateral lower extremities) Neurological: Normal speech, Normal strength at 5/5 x4 extr - Studies Laboratory Data (last 24 hrs) 02/27/20 00:30: WBC 13.1 H, Hgb 8.0 L, Hct 25.3 L, Plt Count 239 02/27/20 00:30: Sodium 136, Potassium 4.5, BUN 37 H, Creatinine 3.25 H, Glucose 81, Total Bilirubin 0.6, AST 34, ALT 13, Alkaline Phosphatase 213 H, Amylase 92, Lipase 228 02/27/20 00:30: PT 16.8 H, INR 1.43, APTT 29.6 Assessment and Plan - Problems (Diagnosis) (1) ESRD (end stage renal disease) on dialysis Current Visit: No Status: Acute (2) Acute on chronic diastolic CHF (congestive heart failure) Onset Date: 03/17/18 Current Visit: No Status: Chronic (3) UTI (urinary tract infection) Current Visit: No Status: Resolved Qualifiers: Urinary tract infection type: acute cystitis Hematuria presence: without hematuria Qualified Code(s): N30.00 - Acute cystitis without hematuria (4) Anasarca Onset Date: 10/03/17 Current Visit: No Status: Acute (5) Hypotension Current Visit: Yes Status: Acute (6) Sepsis Current Visit: Yes Status: Acute (7) Sepsis Onset Date: 07/29/17 Current Visit: No Status: Resolved Qualifiers: Sepsis type: sepsis due to unspecified organism Qualified Code(s): A41.9 - Sepsis, unspecified organism - Plan Place patient under observation. Hypertension likely secondary to hypovolemia. The patient given IV albumin infusion and IV Lasix in the ED. Difficult decision here regarding fluid resuscitation. Resuscitation with IV crystalloid is limited given the presence of increased pleural effusion and anasarca. Will consult nephrology for hemodialysis. Vasopressors p.r.n. Start IV Levaquin for UTI. Follow cultures Repeat lactate. Repeat pro calcitonin in am. Fluid and salt restriction. Daily weight. PT evaluation. - Advance Directives Does patient have a Living Will: Yes Does patient have a Durable POA for Healthcare: Yes
[2020-02-27] MEDS ORDERED: ACETAMINOPHEN 500 MG TAB PO PRN (04:38)
--- NOTE | 2020-02-27 06:31 | P.INFCA ---
Sepsis Focused Assessment - Focused Assessment Complete? Sepsis Focused Assessment Completed?: Yes - Sepsis Screen Result Severe Sepsis: Positive Septic Shock: Negative - Evaluation Current stage of sepsis: Severe sepsis - Vital Signs Reviewed: Yes Temperature: 97.8 F Heart rate: 58 Blood Pressure: 95/51 Respiratory Rate: 16 O2 Sat by Pulse Oximetry: 93 - Examination Date exam was performed: 02/27/20 Time exam was performed: 04:45 Heart: Regular rate/rhythm, S1, S2 Lungs: Diminished air movement (Right lower lobe) Peripheral pulses: 3+ Normal Peripheral pulse location: Radial Capillary refill: <2 Seconds Skin examination: Normal turgor
[2020-02-27] MEDS: INSULIN -REGULAR HUMAN 50 UNIT/0.5 ML ML SQ SCH ×4 (07:30→22:19)
[2020-02-27] MEDS ORDERED: FUROSEMIDE 40 MG/4 ML VIAL IV SCH (09:00)
--- NOTE | 2020-02-27 09:15 | RAD REPORT ---
EXAM DESCRIPTION: RAD - Chest Single View - 02/27/2020 1:03 am CLINICAL HISTORY: COPD COMPARISON: Portable January 22, portable January 09 TECHNIQUE: AP portable chest image was obtained 02/27/2020 1:03 am . FINDINGS: No mass or consolidation of the left lung field. Interstitial pattern is mildly prominent. Moderate-sized right pleural effusion is similar to the prior imaging. Heart size is prominent but s table. Upper lobe vasculature is mildly prominent. Dialysis catheter in place. No pneumothorax. No ac jesenia bony abnormality seen. No acute aortic findings suspected. IMPRESSION: No acute cardiopulmonary process. Small a moderate size right pleural effusion has not change from prior imaging. Heart size and interstitial markings are prominent. In a dialysis patient this can indicate volume ov erload.
[2020-02-27] MEDS ORDERED: MIDODRINE HCL 5 MG TABLET PO ONE (10:50)
[2020-02-27] MEDS: GABAPENTIN 100 MG CAP PO SCH ×2 (11:21→22:18)
[2020-02-27] MEDS: CODEINE 30MG/APAP 300MG TAB PO PRN ×2 (11:22→18:29)
[2020-02-27] MEDS: ENOXAPARIN 30 MG/0.3 ML SQ SCH (11:23)
--- NOTE | 2020-02-27 12:56 | P.PN ---
Date of Service: 02/27/20 Patient seen this morning. Reports feeling better but overall still feeling Bad. Reports aches all over. She is able set up, which she states she was unable to do up until now. Lactate down trended, BP improved, breathing on RA Continue Levaquin for UTI. Cardiology and nephrology consulted. Troponin continues to rise, discuss with cardiology. Plan for echocardiogram and left heart catheterization tomorrow Working on obtaining patient's home medications and restart as appropriate
[2020-02-27] MEDS ORDERED: ALBUMIN HUMAN 25% 50 ML IV ONE (13:00)
[2020-02-27] MEDS: MIDODRINE HCL 5 MG TABLET PO SCH ×2 (13:13→22:18)
--- NOTE | 2020-02-27 13:57 | CON ---
Date of Consultation: 02/27/2020 Reason For Consultation: Elevated troponin and shortness of breath. History Of Present Illness: 64-year-old female with end-stage renal disease, on hemodialysis; chroni c heart failure; diabetes; and hypertension, presented with shortness of breath. She apparently does dialysis Friday, Friday, and Friday and has been compliant. Shortness of breath has been worseni ng along with orthopnea. Denies having any chest pain. Troponin has been elevated, peaked at 1.1. The patient is known to have history of coronary artery disease, status post 4-vessel bypass within t he recent past. Past Medical History: COPD, hypertension, coronary artery disease, diabetes, end-stage renal disease , uterine cancer, congestive heart failure. Medications: Refer to reconciliation sheet for detailed list. Allergies: LONG LIST OF ALLERGY THAT WAS REVIEWED INCLUDING MORPHINE, VANCOMYCIN, TRAMADOL, TRAZODON E, AND NITROGLYCERIN. Family History: No premature coronary artery disease. There is history of prostate cancer on father 's side. Social History: Does not smoke or drink. Does not use any drugs. Review of Systems: All systems reviewed were negative except for mentioned in the HPI. Physical Examination: Vital Signs: Temperature is 97.6, pulse 67, breathing at 17, blood pressure is 127/67, saturating 96 %. General: This is a middle-aged female, in no apparent distress. Head and Neck: Pupils are equal, reactive to light. Intact eye movements. Mild JVD elevation. Lungs: No rhonchi, wheezing or crackles. Heart: Regular rate and rhythm. No extra sounds. Abdomen: Soft, nontender. Bowel sounds positive. No organomegaly. No masses or hernia. No rigidi ty or rebound. Extremities: No clubbing, cyanosis. Neurologic: Alert, awake, oriented x3. No acute focal deficits appreciated. Lymph Nodes: No cervical or axillary lymphadenopathy. Investigations: Troponin peaked at 1.13, so far. Her creatinine is 3.25. The patient has end-stage renal. White blood cell count 15.1, hemoglobin is 8. Chest x-ray, there is a moderate size right p leural effusion and findings suggestive of pulmonary edema. Assessment And Plan: 1.Acute on chronic congestive heart failure exacerbation. Last echo was done on January 2019 with normal ejection fraction. Recommendations, update echo on this admission and plan for coronary angio gram due to elevated troponin. 2.Coronary artery disease with elevated troponin suggestive of non-ST elevation myocardial infarctio n. The patient is chest pain-free at this moment. Plan for coronary angiogram tomorrow. 3.End-stage renal disease with fluid retention. The patient is for dialysis today. SR/MODL Voice ID: [id number] Report ID: [id number]
[2020-02-27] MEDS: EPOETIN ALFA 10,000 UNIT/ML VIAL IV SCH (16:45)
--- NOTE | 2020-02-27 22:12 | CON ---
Date of Consultation: 02/27/2020 Chief Complaint: End-stage renal disease, shortness of breath, acute coronary syndrome, fluid overload, congestive heart failure. History Of Present Illness: The patient is a 64-year-old woman with history of end-stage renal disease on hemodialysis, chronic heart failure, diabetes mellitus, diabetic kidney disease, hypertension. She presented to the hospital because of shortness of breath and generalized weakness. She has been dialyzed on Friday, Friday, Friday, and last dialysis was done on Friday. Shortness of breath was progressively worse. The patient developed orthopnea. Denies wheezing, fever, or chill. She decided to come to the hospital. She has history of chronic legs edema, lymphedema, nonhealing diabetic infection of lower extremities. The patient has history of coronary artery disease, status post 4 vessel bypass. Review of Systems: Constitutional: The patient complains of generalized weakness. Eyes: Denies vision changes. Ears, Nose, Mouth, and Throat: Denies sore throat or earache. Respiratory: She has shortness of breath and orthopnea. Denies hemoptysis. Cardiovascular: Denies chest pain, palpitation, or syncope. GI: Denies nausea or vomiting. : Denies dysuria or hematuria. All other systems reviewed and all are negative. Past Medical History: Hypertension, hypertensive heart and kidney disease, diabetes mellitus, diabetic kidney disease, cardiorenal syndrome, congestive heart failure chronic systolic and diastolic, uterine cancer, anemia on CKD, renal osteodystrophy. Family History: No kidney disease in the family. Social History: Denies tobacco, alcohol, or illicit drugs. Past Surgical History: Status post dialysis catheter placement, bypass, CABG, appendectomy, cholecystectomy, gastric surgery, hysterectomy, cholecystectomy, rectal surgery. Physical Examination: General: The patient is awake, alert, follows commands. Eyes: Anicteric sclerae. EOMI. Ears, Nose, Mouth, and Throat: Oral mucosa moist. No pallor. Neck: Supple. No bruits. Lungs: Crackles bilaterally. No wheezing. No rhonchi. Heart: S1, S2. No pericardial friction rub. Abdomen: Obese, soft, nontender. No rebound. No guarding. Extremities: Edema present in both legs. Dressing in place. Neurologic: No tremor. Cranial nerves intact. Laboratory Work: Troponin 1.22. Lactic acid 1.7. Sodium 136, potassium 4.5, chloride 104, CO2 22, BUN 37, creatinine 3.25, glucose 81, calcium 8.3, bilirubin 0.6. Rapid troponin 0.65. Hemoglobin 8.0, WBC 13.1, platelet count 239,000. Chest x-ray showed increased vascular congestion, pleural effusion, no mass or consolidation on the left lung, interstitial pattern mildly prominent, moderate-sized right pleural effusion is similar to prior ranging, heart size is prominent and stable, upper lobe vasculature is mildly prominent, dialysis catheter is in place. Small moderate sized right pleural effusion has not changed from prior x-ray. Impression And Plan: 1. End-stage renal disease, on dialysis. The patient presented to the hospital because of shortness of breath. She is undergoing workup for acute coronary syndrome. She has fluid overload, decompensated congestive heart failure. I ordered dialysis with ultrafiltration and blood flow rate. Dialysis was adjusted due to the fact that patient has acute coronary syndrome. 2. Hypoalbuminemia. Albumin is 1.9. Plan is to increase p.o. protein intake. 3. The patient has nonhealing diabetic wound. The patient may need to be screened for sepsis. Procalcitonin was elevated. Recommend antibiotics of broad spectrum and wound care. 4. Blood culture obtained and pending. Follow up on blood culture. 5. Anemia. Resume BRONWYN. Consider blood transfusion. 6. Renal osteodystrophy. Continue renal diet and binders. JONNY/CELESTINE Voice ID: [id number] Report ID: [id number]
[2020-02-27] MEDS: allopurinoL 100 MG TAB PO SCH (22:19)
[2020-02-27] MEDS: BUPROPRION HCL S.R. 150MG TAB PO SCH (22:27)
[2020-02-28] MEDS: CODEINE 30MG/APAP 300MG TAB PO PRN ×2 (00:55→19:31)
[2020-02-28 06:03] LABS: Protime INR 1.49
[2020-02-28 06:04] LABS: Absolute Lymphocytes (CBC) 2.6 K/uL (0.7-4.9); Basophils % 0.5 % (0-1.3); Hematocrit 25.1 % (36.0-45.0); Lymphocytes % 25.6 % (15.3-44.8); MPV 7.1 fL (7.6-11.3); RBC Red Blood Cell Count 2.82 M/uL (3.86-4.86)
[2020-02-28 06:16] LABS: Potassium 4.2 mmol/L (3.5-5.1)
[2020-02-28 06:17] LABS: Magnesium 2.2 mg/dL (1.8-2.4)
[2020-02-28] MEDS: CLOPIDOGREL 75 MG TABLET PO SCH (06:38)
[2020-02-28] MEDS ORDERED: Levofloxacin500mg IV 500 MG/100 ML BAG IV SCH (07:00)
[2020-02-28] MEDS: INSULIN -REGULAR HUMAN 50 UNIT/0.5 ML ML SQ SCH ×4 (07:30→20:31)
[2020-02-28] MEDS ORDERED: DIPHENHYDRAMINE 50 MG/ML VIAL ONE (08:12)
[2020-02-28] MEDS ORDERED: HEPA 1000U/500MLS 2,000 UNIT/1,000 ML BAG IV ONE (08:12)
[2020-02-28] MEDS ORDERED: HEPARIN 5000 UNIT/ML 1 ML VIAL ONE (08:12)
[2020-02-28] MEDS ORDERED: METHYLPREDNISOLONE 125 MG INJ ONE (08:12)
[2020-02-28] MEDS ORDERED: LIDOCAINE 1% 20 ML MDV ONE (08:12)
[2020-02-28] MEDS ORDERED: MIDAZOLAM HCL 2 MG/2 ML INJ ONE (08:12)
[2020-02-28] MEDS ORDERED: VERAPAMIL HCL 10 MG/4 ML VIAL IV ONE (08:13)
[2020-02-28] MEDS ORDERED: ATROPINE SULF 1 MG/10 ML SYR IV ONE (08:13)
[2020-02-28] MEDS ORDERED: FENTANYL CITR 100 MCG/2 ML ONE (08:13)
[2020-02-28] MEDS ORDERED: NITROGLYCERIN/D5W 25 MG/250 ML BTL IV ONE (08:13)
[2020-02-28] MEDS ORDERED: NITROGLYCERIN 100 MCG/ML SYR (for cath lab use only) IV ONE (08:13)
[2020-02-28] MEDS: ENOXAPARIN 30 MG/0.3 ML SQ SCH (08:24)
[2020-02-28] MEDS: MIDODRINE HCL 5 MG TABLET PO SCH ×3 (08:25→20:30)
[2020-02-28] MEDS: BUPROPRION HCL S.R. 150MG TAB PO SCH ×2 (08:25→20:30)
[2020-02-28] MEDS: GABAPENTIN 100 MG CAP PO SCH ×3 (08:25→20:30)
[2020-02-28] MEDS: allopurinoL 100 MG TAB PO SCH ×2 (08:25→20:30)
[2020-02-28] MEDS ORDERED: NA CHLORIDE 0.9% 500 ML ONE (08:25)
[2020-02-28] MEDS ORDERED: FLUTICASONE 110 MCG/PUFF 12 GM INH IH SCH (09:00)
[2020-02-28] MEDS ORDERED: COLLAGENASE 30 GM OINTMENT TOP SCH (09:00)
--- NOTE | 2020-02-28 09:40 | P.PN ---
Subjective Date of Service: 02/28/20 Chief Complaint: Shortness of breath Subjective: Improving (breathing significantly better, feeling overall better this morning, still with some tiredness. reports chronic b/l leg pain. no nausea/vomiting/diarrhea.) Review of Systems 10-point ROS is otherwise unremarkable Physical Examination - Vital Signs Temperature: 98.1 F Blood Pressure: 143/69 Pulse: 61 Respirations: 20 Pulse Ox (%): 98 - Physical Exam General: Alert, In no apparent distress, Oriented x3 HEENT: Sclerae nonicteric Respiratory: Crackles/rales (mild at bases bilaterally) Cardiovascular: Regular rate/rhythm, Edema (1+ b/l to knees) Gastrointestinal: No tenderness Musculoskeletal: Tenderness (mild, bilateral legs) Integumentary: Other (slight erythema/warmth of b/l legs; lower extremities with new clean dressings in place) Neurological: Normal speech, Normal affect - Studies Laboratory Data (last 24 hrs) 02/27/20 09:14: Troponin I 1.13 H* Microbiology Data (last 24 hrs): 02/27/20 05:00 Wound - Left Foot Gram Stain - Final 02/27/20 05:00 Wound - Right Lower Leg Gram Stain - Final Assessment & Plan Physician Review Additional Text: Sepsis secondary to UTI Chronic diastolic congestive heart failure ESRD on HD Elevated troponin Diabetes mellitus type 2-insulin dependent Hypertension Osteomyelitis, Lower extremity wounds COPD Sepsis secondary to UTI -much improved, received Albumin and IV levaquin -clinically improved / stable now, remains afebrile, WBC improved -procalcitonin increased today, confounded due to pt w/ ESRD on dialysis; briefly discussed with ID this morning and will see patient today -continue levaquin for now as pt has clinically improved / feeling better, remained afebrile, WBC improved, and BP stable -cultures pending Chronic diastolic congestive heart failure/venostasis dermatitis. -chronic pleural effusion. -off Lasix drip and albumin infusion, on Bumex 2mg TID -patient prefers Bumex over Lasix. She stated she experiences belly discomfort with the oral Lasix. -nephrology is assisting with diuretic dose adjustments. Patient has been oliguric past several days ESRD on HD: -nephrology consulted, s/p HD yesterday, possibly today as well Chest pain, Elevated troponin -cardiology consulted, for cardiac cath today Diabetes mellitus type 2-insulin dependent: -glc ok, continue insulin sliding scale Hypertension: -BP meds have been held due to low blood pressure Lower extremity wounds, h/o Osteomyelitis -wound care consult -multiple infections in past -will evaluate further after cardiac cath today and change dressings -ID consulted Dispo: anticipate dc in 48-72 hrs Critical Care: Yes Time Spent Managing Pts Care (In Minutes): 35
[2020-02-28] MEDS ORDERED: HEPA 1000U/500MLS 1,000 UNIT/500 ML BAG IV ONE (09:45)
[2020-02-28] MEDS ORDERED: CLOPIDOGREL 75 MG TABLET ONE (10:27)
--- NOTE | 2020-02-28 11:13 | OP ---
Date of Procedure: 02/28/2020 Surgeon: TAVO CALLEJAS Procedures Performed: 1.Selective coronary angiogram with bypass graft study. 2.Percutaneous coronary intervention of severe ostial to proximal left circumflex disease using 3.0 x 20 mm Synergy drug-eluting stent. 3.Balloon angioplasty of severe stenosis of the distal RCA, distal to the stent using a 3.0 x 12 mm NC balloon. Indication: Non-ST elevation myocardial infarction. Access: Left radial artery 6-Yemeni closed with TR band. Complications: None. Bleeding: Less than 50 mL. Anesthesia: Total sedation time was 75 minutes. Description Of Procedure: After risks, benefits, and alternatives were explained, the patient agreed to proceed and signed informed consent. The patient was brought into the cardiac catheterization la boratory, prepped and draped in usual sterile fashion and we accessed the left radial artery using a pediatric micropuncture kit and placed a 6-Yemeni slender sheath. We used fentanyl and Versed in inc remental doses to achieve adequate sedation. Then, we took a 6-Yemeni JL-4 catheter into the aortic root, engaged the left main, took standard views, and then took a 6-Yemeni JR4 catheter into the aort ic root, engaged the RCA and the SVG to the RCA, and then engaged the PRITCHETT to the LAD, and took stand isabella views, and could not find any further grafts and did an aortic root injection, could not find any further grafts. Intervention Details: The patient was given heparin to assure ACT level above 250 throughout the pro cedure and then we took a 6-Yemeni EBU 3.5 into the aortic root over a J-wire, engaged the left main and took a short Run-Through wire into the left circumflex and another Run-Through wire into the LAD to protect it, and then we prepped the proximal lesion using a 3.0 x 50 mm NC balloon and then placed 3.0 x 20 mm Synergy drug-eluting stent and then we took a 3.0 x 12 mm NC balloon into the distal lef t circumflex and did balloon angioplasty with good SYMONE-3 flow and good results. No dissection. The n, we took the guide out, and the catheter and the sheath were removed and placed TR band with good h emostasis. The patient was given 300 mg of Plavix on the table. Findings: 1.Left main is large, normal. 2.LAD has a proximal to mid 80% stenosis at the bifurcation of the diagonal and then CHARGING [employer]PERATOR with patent PRITCHETT to LAD. 3.Left circumflex, 90% ostial proximal stenosis, then 56% ISR proximally, status post PCI to the pro ximal lesion and balloon angioplasty to the stent ISR and also had an 80% stenosis distal to the sten t, status post balloon angioplasty as above with SYMONE-3 flow results. There were no grafts or compet itive flow that were seen to the left circumflex artery. 4.RCA has a stent from the proximal to the distal portion with 70% ISR mid and then totally occluded . The SVG graft has a slow flow and it supplying very very small branch. It was left alone. Conclusions: Severe pamunkey coronary artery disease as above with culprit being the left circumflex a rtery, status post successful PCI and balloon angioplasty as above. Recommendations: 1. Plavix, and high dose . 2.Follow up in the office in 4 weeks postdischarge. /CELESTINE Voice ID: [id number] Report ID: [id number]
[2020-02-28] MEDS: MEDIHONEY 44 ML TOPICAL TUBE TOP SCH (14:45)
--- NOTE | 2020-02-28 15:34 | CON ---
History Of Present Illness: The patient is a 64-year-old female, coming in with hypertension and con gestive heart failure because of missing her dialysis day. The patient denies any other problems. I was consulted for the wounds to the lower extremity involving ulceration to the right leg and left f oot. On admission, the patient's white blood cell count was elevated and her urine also showed that she has bacteriuria, mostly gram-negative rods. The patient was started on Levaquin and she is feeli ng better. Today, she has been getting dialyzed. Denies any other problems. Past Medical History: Includes end-stage renal disease, multiple wounds to the lower extremity and a mputation of left big toe. The patient also had pleural effusion and shortness of breath with elevat ed procalcitonin. Past Medical History: COPD, hypertension, CABG x4, diabetes mellitus, congestive heart failure, end- stage renal disease, chronic hyperlipidemia, TB as a child, iron deficiency anemia, osteoarthritis, r ectal surgery, hysterectomy, cholecystectomy, gastric surgery, appendectomy, CABG x4 vessel, right lo wer extremity femoral-popliteal bypass, left great toe amputation. Social History: Nonsmoker, nondrinker. Family History: Noncontributory. Medications: Levaquin. See MAR for other medications. Allergies: MORPHINE, VANCOMYCIN, TRAMADOL, TRAZODONE, AND NITROGLYCERIN. Review of Systems: A 10-point review was performed. Physical Examination: General: This is a 64-year-old female, lying in bed, not in any acute cardiopulmonary distress. Vital Signs: Temperature 98, pulse 60, respirations 16, blood pressure 150/61. HEENT: Unremarkable. Neck: Supple. Lungs: Basal crackles. Heart: S1, S2. Regular. Abdomen: Soft, nontender. Bowel sounds present. Extremities: 2+ edema. Left leg lateral aspect wound noted on the left foot with no slough, good gr anulation tissue, pale. No discharge noted on the dressing. Right foot and calf region had 2 more w ounds with no slough in it. Laboratory Data: Shows WBC 10,000 down from 13,000, hemoglobin 8.2, platelets are 269. Chemistry sh ows sodium 136, potassium 4.2, chloride 100, bicarb 27, BUN 31, creatinine 2.9, glucose 111. Urine c ultures growing gram-negative rods. Assessment And Plan: A 64-year-old female with multiple medical problems, diabetes mellitus and end- stage renal disease, coming in with sepsis, bacteriuria and lower extremity diabetic foot ulcers. We will recommend Medihoney to be applied to the wounds and to the second toe apply Betadine. We will change dressing Friday, Friday, and Friday. We will follow the patient closely. Thank you Dr. Nettles for consult. NF/AUSTYNL Voice ID: [id number] Report ID: [id number]
[2020-02-28] MEDS: BUDESONIDE 0.5 MG/2 ML NEB IH SCH (19:35)
[2020-02-28] MEDS: JUVEN PACKET PO SCH (20:30)
--- NOTE | 2020-02-29 01:44 | PN ---
Date of Progress Note: 02/28/2020 Chief Complaint: End-stage renal disease, severe fluid overload, shortness of breath, congestive heart failure. History: Patient underwent cardiac catheterization today for coronary artery disease. She required balloon angioplasty and stent placement. Subsequently, she received dialysis to prevent contrast-induced hyperkalemia. Patient tolerated dialysis and ultrafiltration was done to control fluid overload. Balloon angioplasty was done for severe stenosis of distal RCA. Review of Systems: Patient denies PND or orthopnea. Physical Examination: Lungs: Crackles in bases. Heart: S1, S2. Abdomen: Soft, benign. Extremities: Edema present. Impression And Plan: End-stage renal disease. Dialysis will be done today with ultrafiltration to control volume overload. Patient has shortness of breath . She has history of coronary artery disease. She developed [id number] myocardial infarction and needs to have a cardiac catheterization. Patient has diabetes mellitus, diabetic kidney disease, diabetic foot infection. She will continue antibiotics. She has multiple allergies and broad-spectrum antibiotics will be used for treatment of nonhealing wound. Patient came to the hospital with shortness of breath. She denied chest pain. She was found to have elevated leukocytosis. She will require wound care and antibiotic therapy. JONNY/CELESTINE Voice ID: [id number] Report ID: [id number] AZUCENA
[2020-02-29] MEDS: CODEINE 30MG/APAP 300MG TAB PO PRN ×4 (03:58→21:26)
[2020-02-29 04:04] LABS: Absolute Lymphocytes (CBC) 2.2 K/uL (0.7-4.9); Basophils % 1.1 % (0-1.3); Lymphocytes % 27.9 % (15.3-44.8); MPV 7.2 fL (7.6-11.3); RBC Red Blood Cell Count 2.91 M/uL (3.86-4.86)
[2020-02-29 04:25] LABS: C-Reactive Protein 57.9 mg/L (<3.00); Phosphorus 4.6 mg/dL (2.5-4.9); Potassium 4.6 mmol/L (3.5-5.1)
[2020-02-29] MEDS ORDERED: Levofloxacin500mg IV 500 MG/100 ML BAG IV SCH ×2 (07:00→09:00)
[2020-02-29] MEDS: INSULIN -REGULAR HUMAN 50 UNIT/0.5 ML ML SQ SCH ×4 (07:30→21:00)
[2020-02-29] MEDS: BUDESONIDE 0.5 MG/2 ML NEB IH SCH ×2 (07:42→20:15)
--- NOTE | 2020-02-29 08:43 | ECHO ---
HEIGHT: 5 ft 7 in WEIGHT: 165 lb 0 oz DATE OF STUDY: 02/28/[address]: Oleksandr Nettles MD 2-DIMENSIONAL: YES M.MODE: YES DOPPLER: YES COLOR FLOW: YES TDS: NO PORTABLE: NO DEFINITY: NO BUBBLE STUDY: NO DIAGNOSIS: ELEVATED TROPONIN CARDIAC HISTORY: CATHERIZATION: SURGERY: PROSTHETIC VALVE: PACEMAKER: MEASUREMENTS (cm) DIASTOLIC (NORMALS) SYSTOLIC (NORMALS) IVSd 1.3 (0.6-1.2) LA Diam 4.4 (1.9-4.0) LVEF 50% LVIDd 5.2 (3.5-5.7) LVIDs 3.9 (2.0-3.5) %FS 25% LVPWd 1.2 (0.6-1.2) Ao Diam 2.6 (2.0-3.7) 2 DIMENSIONAL ASSESSMENT: RIGHT ATRIUM: NORMAL LEFT ATRIUM: ENLARGED RIGHT VENTRICLE: NORMAL LEFT VENTRICLE: NORMAL TRICUSPID VALVE: MITRAL VALVE: PULMONIC VALVE: AORTIC VALVE: NORMAL PERICARDIAL EFFUSION: NONE AORTIC ROOT: NORMAL LEFT VENTRICULAR WALL MOTION: NORMAL DOPPLER/COLOR FLOW: SEE BELOW COMMENTS: NORMAL LEFT VENTRICULAR EJECTION FRACTION 55-60%. MODERATE PULMONARY INSUFFICICENY. MODERATE MITRAL AND TRICUSPID REGURGITATION. PULMONARY HYPERTENSION WITH RIGHT VENTRICULAR SYSTOLIC PRESSURE OF 40-45 mmHg. TECHNOLOGIST: Haritha DSOUZA
[2020-02-29] MEDS: JUVEN PACKET PO SCH ×2 (09:00→21:27)
[2020-02-29] MEDS: MEDIHONEY 44 ML TOPICAL TUBE TOP SCH (10:19)
[2020-02-29] MEDS: CLOPIDOGREL 75 MG TABLET PO SCH (10:20)
[2020-02-29] MEDS: allopurinoL 100 MG TAB PO SCH ×2 (10:20→21:26)
[2020-02-29] MEDS: BUPROPRION HCL S.R. 150MG TAB PO SCH ×2 (10:20→21:26)
[2020-02-29] MEDS: GABAPENTIN 100 MG CAP PO SCH ×3 (10:21→21:26)
[2020-02-29] MEDS: ENOXAPARIN 30 MG/0.3 ML SQ SCH (10:23)
--- NOTE | 2020-02-29 11:28 | CON ---
Date of Consultation: 02/29/2020 History Of Present Illness: The patient was admitted with over volume, cellulitis, shortness of breath. Found to have a pleural effusion with CHF exacerbation and UTI. The patient was seen by ID for the foot ulcer and wound care. Undergone cardiac cath with angioplasty because of elevation AR. Had stent placed in the proximal left circumflex and distal RCA. Physical Examination: Vital Signs: Blood pressure 151/70, pulse of 59. The patient had dialysis yesterday, managed to remove 3 L. Chest: Decreased entry bilateral base. Heart: S1, S2. Systolic murmur. Abdomen: Soft, nontender. Extremities: Dressing on the foot, +1 edema. Neurological: Alert and oriented x3. No focal. Laboratory Data: H and H 8.3/. Sodium 136, potassium 4.6, bicarb 31, BUN 28, creatinine 2.7, calcium 8, phosphorus 4.6, magnesium of 2, procalcitonin 1.8. Chest x-ray; right pleural effusion, right IJ PermCath. Current Medications: The patient on include Levaquin 500 every other day, Plavix, Lovenox, Epogen, Tylenol, gabapentin, allopurinol. Assessment And Plan: 1. End-stage renal disease, over volume secondary to congestive heart failure exacerbation, status post dialysis yesterday, status post cardiac cath yesterday. I am going to continue the patient on dialysis Friday, Friday, and Friday. We will arrange for dialysis tomorrow. 2. Secondary hyperparathyroidism, stable. Continue to monitor. 3. Anemia of chronic kidney disease. Resume BRONWYN. 4. Over volume. The patient is status post dialysis, currently normal volume. Resume dialysis 3 times a week. 5. Coronary artery disease, non-ST elevation myocardial infarction, congestive heart failure exacerbation. We will optimize the fluid status. The patient is status post cardiac cath with stenting PTCA. We will follow up with Cardiology. 6. Foot infection, diabetic foot as by ID and wound care. 7. Diabetes as by primary. time spent coordinating care discussing with the patient [id number] with the patient, placing order , discussing the case with the other team number + hospitalists and consultants 35 min NATI/CELESTINE Voice ID: [id number] Report ID: [id number] MTDD
[2020-02-29] MEDS: Levofloxacin 250mg IV 250 MG/50 ML BAG IV SCH (12:00)
--- NOTE | 2020-02-29 12:09 | P.PN ---
Subjective Date of Service: 02/29/20 Chief Complaint: Shortness of breath Subjective: No new changes No major changes from yesterday. Status post cardiac catheterization and stent placement yesterday. She is currently hypertensive. She has good oral intake. She denies pain. Urine culture: Enterobacter. Wound culture: Pseudomonas and MRSA. Enterobacter and Pseudomonas sensitive to Cipro. MRSA is sensitive to doxycycline. Allergy to vancomycin noted. Physical Examination - Vital Signs Temperature: 96.9 F Blood Pressure: 151/70 Pulse: 59 Respirations: 14 Pulse Ox (%): 95 - Physical Exam General: Alert, In no apparent distress HEENT: Mucous membr. moist/pink Neck: Supple, JVD not distended Respiratory: Diminished (On the right), Other (No crackles) Cardiovascular: Regular rate/rhythm, Normal S1 S2, Edema (Bilateral lower extremities) Gastrointestinal: Normal bowel sounds, No tenderness, Distended (Mildly distended) Musculoskeletal: Erythema (Bilateral lower extremities) Integumentary: Skin breakdown (Multiple skin tears/wounds on bilateral lower extremities.) Neurological: Other (Nonfocal) - Studies Microbiology Data (last 24 hrs): 02/27/20 05:00 Wound - Right Lower Leg Gram Stain - Final 02/27/20 05:00 Wound - Right Lower Leg Culture & Sensitivity - Final Meth Resistant Staph Aureus 02/27/20 05:00 Wound - Left Foot Gram Stain - Final 02/27/20 00:55 Catheterized Urine [place] Count - Final >100,000 CFU/ML. 02/27/20 00:55 Catheterized Urine - Final Enterobacter Aerogenes 02/27/20 05:15 Nasopharnyx Coronavirus COVID-19 PCR - Final Assessment And Plan - Current Problems (Diagnosis) (1) ESRD (end stage renal disease) on dialysis Current Visit: No Status: Acute (2) Acute on chronic diastolic CHF (congestive heart failure) Onset Date: 03/17/18 Current Visit: No Status: Chronic (3) UTI (urinary tract infection) Current Visit: No Status: Resolved Qualifiers: Urinary tract infection type: acute cystitis Hematuria presence: without hematuria Qualified Code(s): N30.00 - Acute cystitis without hematuria (4) Anasarca Onset Date: 10/03/17 Current Visit: No Status: Acute (5) Hypotension Current Visit: Yes Status: Acute (6) Sepsis Current Visit: Yes Status: Acute (7) Infected wound Current Visit: Yes Status: Acute (8) NSTEMI (non-ST elevated myocardial infarction) Current Visit: Yes Status: Acute (9) CAD (coronary artery disease) Onset Date: 10/03/17 Current Visit: No Status: Chronic Qualifiers: (10) Anemia Onset Date: 10/03/17 Current Visit: No Status: Chronic Qualifiers: Anemia type: due to chronic kidney disease Chronic kidney disease stage: stage 3 (moderate) - Plan Sepsis has improved. Continue Levaquin-renal dose. And oral doxycycline given MRSA wound growth. Patient is currently hypertensive. Discontinue Midodrine. She is on Plavix status post cardiac catheterization and coronary artery stenting. She has anemia of chronic kidney disease. Hemoglobin of 8. Monitor and transf use p.r.n. for hemoglobin less than 7. Nephrology is following for hemodialysis. Fluid and salt restriction. Daily weight. PT evaluation. Disposition: Home with home health once clinically stable. Physician Review Additional Text: Sepsis secondary to UTI Chronic diastolic congestive heart failure ESRD on HD Elevated troponin Diabetes mellitus type 2-insulin dependent Hypertension Osteomyelitis, Lower extremity wounds COPD Sepsis secondary to UTI -much improved, received Albumin and IV levaquin -clinically improved / stable now, remains afebrile, WBC improved -procalcitonin increased today, confounded due to pt w/ ESRD on dialysis; briefly discussed with ID this morning and will see patient today -continue levaquin for now as pt has clinically improved / feeling better, remained afebrile, WBC improved, and BP stable -cultures pending Chronic diastolic congestive heart failure/venostasis dermatitis. -chronic pleural effusion. -off Lasix drip and albumin infusion, on Bumex 2mg TID -patient prefers Bumex over Lasix. She stated she experiences belly discomfort with the oral Lasix. -nephrology is assisting with diuretic dose adjustments. Patient has been oliguric past several days ESRD on HD: -nephrology consulted, s/p HD yesterday, possibly today as well Chest pain, Elevated troponin -cardiology consulted, for cardiac cath today Diabetes mellitus type 2-insulin dependent: -glc ok, continue insulin sliding scale Hypertension: -BP meds have been held due to low blood pressure Lower extremity wounds, h/o Osteomyelitis -wound care consult -multiple infections in past -will evaluate further after cardiac cath today and change dressings -ID consulted Dispo: anticipate dc in 48-72 hrs
[2020-02-29] MEDS: DOXYCYCLINE 100 MG CAP PO SCH (21:26)
[2020-03-01] MEDS: ONDANSETRON 4 MG/2 ML VIAL IV PRN ×2 (00:32→12:00)
[2020-03-01 04:17] LABS: Absolute Lymphocytes (CBC) 2.1 K/uL (0.7-4.9); Basophils % 1.4 % (0-1.3); Hematocrit 26.5 % (36.0-45.0); Lymphocytes % 27.5 % (15.3-44.8); RBC Red Blood Cell Count 2.96 M/uL (3.86-4.86)
[2020-03-01] MEDS: INSULIN -REGULAR HUMAN 50 UNIT/0.5 ML ML SQ SCH ×4 (07:30→21:08)
[2020-03-01] MEDS: BUDESONIDE 0.5 MG/2 ML NEB IH SCH ×2 (08:00→20:00)
[2020-03-01] MEDS: JUVEN PACKET PO SCH ×2 (08:34→21:09)
[2020-03-01] MEDS: ENOXAPARIN 30 MG/0.3 ML SQ SCH (08:34)
[2020-03-01] MEDS: DOXYCYCLINE 100 MG CAP PO SCH ×2 (08:35→21:08)
[2020-03-01] MEDS: GABAPENTIN 100 MG CAP PO SCH ×3 (08:35→21:07)
[2020-03-01] MEDS: CLOPIDOGREL 75 MG TABLET PO SCH (08:35)
[2020-03-01] MEDS: MEDIHONEY 44 ML TOPICAL TUBE TOP SCH (08:35)
[2020-03-01] MEDS: BUPROPRION HCL S.R. 150MG TAB PO SCH ×2 (08:35→21:07)
[2020-03-01] MEDS: allopurinoL 100 MG TAB PO SCH ×2 (08:36→21:08)
[2020-03-01] MEDS: CODEINE 30MG/APAP 300MG TAB PO PRN ×3 (08:40→21:08)
--- NOTE | 2020-03-01 11:47 | PN ---
Date of Progress Note: 03/01/2020 Subjective: The patient was admitted to the hospital with over volume and UTI with CHF exacerbation. The patient has non-ST elevation AK, undergo PTCA with stenting. Objective: Vital Signs: When I saw the patient, blood pressure 158/78, pulse of 61, afebrile. Chest: Decreased entry bilateral base. Heart: S1 and S2. Systolic murmur. Abdomen: Soft and nontender. Extremities: Dressing on the leg. Neurologic: Alert and oriented x3. No focal. Laboratory Data: WBC 7.7, H and H 8.4/26.5, platelets 260. Sodium 132, potassium 5, bicarb 27, BUN 37, creatinine 3.6, calcium 8.1. Current Medications: The patient on include: 1.Doxycycline. 2.Levaquin 250 every 48 hours after dialysis. 3.Plavix. 4.Lovenox. 5.Epogen. 6.Gabapentin. 7.Allopurinol. Assessment/plan: 1.End-stage renal disease, over volume. We will continue the patient on dialysis. We will dialyze the patient today. We will challenge the patient. 2.Hyperkalemia. The patient is going to be dialyzed on low-potassium bath. 3.Over volume. The patient is going to be challenge today. 4.Anemia of chronic kidney disease. Continue BRONWYN. 5.Hyponatremia. It going to be corrected with dialysis. 6.Urinary tract infection and wound infection. Follow up with ID recommendation. Continue Levaquin and doxycycline for the time being and we will follow up. NATI/CELESTINE Voice ID: [id number] Report ID: [id number]
--- NOTE | 2020-03-01 11:53 | PN ---
Subjective: The patient lying in bed. No new complaints. Objective: Vital Signs: Temperature 97, pulse 61, respirations 18, blood pressure 158/78. No new c hanges in examination. Extremities: Wounds are improving. Laboratory Data: Shows WBC 7.7, hemoglobin 8.4, platelets are 260. Chemistry shows sodium 132, pota ssium 5, chloride 98, bicarb 27, BUN 37, creatinine 3.65, glucose 139. Assessment And Plan: Lower extremity cellulitis and diabetic foot ulcer and stasis ulcers also noted . Continue Medihoney to the lower extremity wounds and continue Betadine to the toes. We will follo w the patient as needed. NF/MODL Voice ID: [id number] Report ID: [id number]
--- NOTE | 2020-03-01 12:39 | P.PN ---
Subjective Date of Service: 03/01/20 Chief Complaint: Shortness of breath No major changes. Patient has no new complaint Status post cardiac catheterization and stent placement. She has good oral intake. She denies pain. Urine culture: Enterobacter. Wound culture: Pseudomonas and MRSA. Enterobacter and Pseudomonas sensitive to Cipro. MRSA is sensitive to doxycycline. Allergy to vancomycin noted. Continue current antibiotics. Infectious disease following. Physical Examination - Vital Signs Temperature: 97.1 F Blood Pressure: 158/78 Pulse: 61 Respirations: 18 Pulse Ox (%): 98 - Studies Microbiology Data (last 24 hrs): 02/27/20 05:00 Wound - Left Foot Gram Stain - Final 02/27/20 05:00 Wound - Left Foot Culture & Sensitivity - Final Pseudomonas Aeruginosa Meth Resistant Staph Aureus 02/27/20 05:00 Wound - Right Lower Leg Gram Stain - Final 02/27/20 05:00 Wound - Right Lower Leg Culture & Sensitivity - Final Meth Resistant Staph Aureus 02/27/20 00:55 Catheterized Urine [place] Count - Final >100,000 CFU/ML. 02/27/20 00:55 Catheterized Urine - Final Enterobacter Aerogenes Assessment And Plan - Current Problems (Diagnosis) (1) ESRD (end stage renal disease) on dialysis Current Visit: No Status: Acute (2) Acute on chronic diastolic CHF (congestive heart failure) Onset Date: 03/17/18 Current Visit: No Status: Chronic (3) UTI (urinary tract infection) Current Visit: No Status: Resolved Qualifiers: Urinary tract infection type: acute cystitis Hematuria presence: without hematuria Qualified Code(s): N30.00 - Acute cystitis without hematuria (4) Anasarca Onset Date: 10/03/17 Current Visit: No Status: Acute (5) Hypotension Current Visit: Yes Status: Acute (6) Sepsis Current Visit: Yes Status: Acute (7) Infected wound Current Visit: Yes Status: Acute (8) NSTEMI (non-ST elevated myocardial infarction) Current Visit: Yes Status: Acute (9) CAD (coronary artery disease) Onset Date: 10/03/17 Current Visit: No Status: Chronic Qualifiers: (10) Anemia Onset Date: 10/03/17 Current Visit: No Status: Chronic Qualifiers: Anemia type: due to chronic kidney disease Chronic kidney disease stage: stage 3 (moderate) - Plan Sepsis has improved. Continue Levaquin-renal dose. And oral doxycycline given MRSA wound growth. Patient is currently hypertensive. Discontinue Midodrine. She is on Plavix status post cardiac catheterization and coronary artery stenting. She has anemia of chronic kidney disease. Hemoglobin of 8. Monitor and transfuse p.r.n. for hemoglobin less than 7. Nephrology is following for hemodialysis. Fluid and salt restriction. Daily weight. PT evaluation. Disposition: Home with home health once clinically stable. Physician Review Additional Text: Sepsis secondary to UTI Chronic diastolic congestive heart failure ESRD on HD Elevated troponin Diabetes mellitus type 2-insulin dependent Hypertension Osteomyelitis, Lower extremity wounds COPD Sepsis secondary to UTI -much improved, received Albumin and IV levaquin -clinically improved / stable now, remains afebrile, WBC improved -procalcitonin increased today, confounded due to pt w/ ESRD on dialysis; briefly discussed with ID this morning and will see patient today -continue levaquin for now as pt has clinically improved / feeling better, remained afebrile, WBC improved, and BP stable -cultures pending Chronic diastolic congestive heart failure/venostasis dermatitis. -chronic pleural effusion. -off Lasix drip and albumin infusion, on Bumex 2mg TID -patient prefers Bumex over Lasix. She stated she experiences belly discomfort with the oral Lasix. -nephrology is assisting with diuretic dose adjustments. Patient has been oliguric past several days ESRD on HD: -nephrology consulted, s/p HD yesterday, possibly today as well Chest pain, Elevated troponin -cardiology consulted, for cardiac cath today Diabetes mellitus type 2-insulin dependent: -glc ok, continue insulin sliding scale Hypertension: -BP meds have been held due to low blood pressure Lower extremity wounds, h/o Osteomyelitis -wound care consult -multiple infections in past -will evaluate further after cardiac cath today and change dressings -ID consulted Dispo: anticipate dc in 48-72 hrs
[2020-03-01] MEDS: EPOETIN ALFA 10,000 UNIT/ML VIAL IV SCH (15:45)
[2020-03-02] MEDS: CODEINE 30MG/APAP 300MG TAB PO PRN ×2 (05:29→12:41)
[2020-03-02 06:45] VITALS: BMI 26.2
--- NOTE | 2020-03-02 07:28 | PN ---
Date of Progress Note: 03/01/2020 Ms. Priest is status post angioplasty and stent of the ostium of the circumflex, angioplasty of the dis nano RCA. This was done on 02/28/2020. From a cardiac standpoint, she remains stable. Her vital sig ns are stable. She was afebrile. She is in a sinus rhythm. Has not had any chest pain. She is ghada rt and oriented x3. Has had good p.o. intake. Denied any shortness of breath. She continues to be treated for wound culture with Pseudomonas and MRSA. Urine culture with Enterobacter. Nephrology is following as well as Infectious Disease. I agree with her present regimen certainly from a cardiova scular standpoint. The patient is on dialysis. She should go home eventually on Brilinta, aspirin, statin and beta blockers. We will see her as an outpatient. CHIDI Voice ID: [id number] Report ID: [id number]
[2020-03-02] MEDS: INSULIN -REGULAR HUMAN 50 UNIT/0.5 ML ML SQ SCH ×2 (07:30→12:32)
--- NOTE | 2020-03-02 07:34 | PN ---
Date of Progress Note: 02/29/2020 Ms. Priest underwent a heart catheterization with bypass graft study. She had a PCI and stent of the o stium of the circumflex. She had an angioplasty of severe stenosis of the distal RCA. She did very well after the procedure. Her catheterization insertion site is excellent without any hematoma. She has good distal pulses. Overnight, she does not have any chest pain. She continues to be treated f or sepsis and renal insufficiency. Dr. Gaytan and Dr. Fernando are following. She remains in sinus rhythm. No further cardiac interventions or workup at this point. I will continue her present regim en. She can go home whenever it is okay with Dr. Muñiz, Dr. Gaytan, and Dr. Fernando. We will cont inue to follow her. JAMIA/CELESTINE Voice ID: [id number] Report ID: [id number]
[2020-03-02] MEDS: JUVEN PACKET PO SCH (09:00)
[2020-03-02] MEDS: ENOXAPARIN 30 MG/0.3 ML SQ SCH (09:58)
[2020-03-02] MEDS: BUPROPRION HCL S.R. 150MG TAB PO SCH (09:59)
[2020-03-02] MEDS: allopurinoL 100 MG TAB PO SCH (09:59)
[2020-03-02] MEDS: CLOPIDOGREL 75 MG TABLET PO SCH (09:59)
[2020-03-02] MEDS: MEDIHONEY 44 ML TOPICAL TUBE TOP SCH (09:59)
[2020-03-02] MEDS: DOXYCYCLINE 100 MG CAP PO SCH (09:59)
[2020-03-02] MEDS: GABAPENTIN 100 MG CAP PO SCH ×2 (09:59→14:00)
--- NOTE | 2020-03-02 09:59 | P.DS ---
Admission Date: 02/27/20 Discharge Date: 03/02/20 Disposition: DC HOME/HOME HEALTH CARE Discharge Condition: FAIR Reason for Admission: Shortness of breath - Problems (1) ESRD (end stage renal disease) on dialysis Current Visit: No Status: Acute (2) Acute on chronic diastolic CHF (congestive heart failure) Onset Date: 03/17/18 Current Visit: No Status: Chronic (3) UTI (urinary tract infection) Current Visit: No Status: Resolved Qualifiers: Urinary tract infection type: acute cystitis Hematuria presence: without hematuria Qualified Code(s): N30.00 - Acute cystitis without hematuria (4) Anasarca Onset Date: 10/03/17 Current Visit: No Status: Acute (5) Hypotension Current Visit: Yes Status: Acute (6) Sepsis Current Visit: Yes Status: Acute (7) Infected wound Current Visit: Yes Status: Acute (8) NSTEMI (non-ST elevated myocardial infarction) Current Visit: Yes Status: Acute (9) CAD (coronary artery disease) Onset Date: 10/03/17 Current Visit: No Status: Chronic Qualifiers: (10) Anemia Onset Date: 10/03/17 Current Visit: No Status: Chronic Qualifiers: Anemia type: due to chronic kidney disease Chronic kidney disease stage: stage 3 (moderate) Brief History of Present Illness: 64-year-old woman with a history of end-stage renal disease on hemodialysis, diabetes mellitus, chronic systolic and diastolic heart failure, multiple hospitalizations presented to the emergency department with a complaint of shortness of breath of onset this morning. Patient is on hemodialysis on Friday and Friday and completed the usual 3 hrs of dialysis. She presented to the ED with a complaint of shortness of breath. Chest x-ray done in the ED demonstrated increased right-sided pleural effusion. Patient has facial edema, and increased lower extremity edema. She denied any fever. I suspect dietary indiscretion causing CHF exacerbation. Her initial troponin is elevated to 0.65. Pro calcitonin and lactate are also elevated. UA suggest the presence of UTI. Patient is hospitalized for further management. Hospital Course: Patient admitted to the medical floor and treated for sepsis with IV levaquin. Noted patient has multiple antibiotic allergies including vancomycin. Blood cultures yielded no growth. Her urine culture grew Enterobacter which is sensitive to fluoroquinolones. She has multiple wounds on her lower extremities. Wound culture grew MRSA and Pseudomonas. Oral doxycycline was added to Levaquin based on MRSA sensitivity. Her troponin was elevated. Patient was diagnosis with NSTEMI. Cardiac catheterization was done and patient had balloon angioplasty of the RCA and stenting of the left circumflex artery done. Patient underwent routine hemodialysis. He initially had hypotension which resolved with sepsis treatment. She is currently hypertensive and her usual home antihypertensives have been resumed. Patient has overall improved clinically and deemed stable for discharge. Vital Signs/Physical Exam: Temp Pulse Resp BP Pulse Ox 97 F 58 18 161/77 H 97 03/02/20 08:00 03/02/20 08:00 03/02/20 08:00 03/02/20 08:00 03/02/20 08:00 General: Alert, In no apparent distress Neck: Supple, JVD not distended Respiratory: Clear to auscultation bilaterally, Normal air movement Cardiovascular: Normal S1 S2, Edema (Bilateral lower extremities), Irregular heart rate/rhythm Gastrointestinal: Normal bowel sounds, Soft and benign, No tenderness Musculoskeletal: No tenderness Integumentary: Other (Multiple wounds on bilateral lower extremities.) Neurological: Other (Nonfocal) Laboratory Data at Discharge: WBC 7.7 K/uL (4.3-10.9) 03/01/20 03:55 Hgb 8.4 g/dL (12.0-15.0) L 03/01/20 03:55 Hct 26.5 % (36.0-45.0) L 03/01/20 03:55 Plt Count 260 K/uL (152-406) 03/01/20 03:55 PT 17.5 SECONDS (9.5-12.5) H 02/28/20 05:25 INR 1.49 02/28/20 05:25 APTT 29.6 SECONDS (24.3-36.9) 02/27/20 00:30 Sodium 132 mmol/L (136-145) L 03/01/20 03:55 Potassium 5.0 mmol/L (3.5-5.1) 03/01/20 03:55 BUN 37 mg/dL (7-18) H 03/01/20 03:55 Creatinine 3.65 mg/dL (0.55-1.3) H 03/01/20 03:55 Glucose 139 mg/dL (74-106) H 03/01/20 03:55 Phosphorus 4.6 mg/dL (2.5-4.9) 02/29/20 03:33 Magnesium 2.0 mg/dL (1.8-2.4) 02/29/20 03:33 Total Bilirubin 0.6 mg/dL (0.2-1.0) 02/27/20 00:30 AST 34 U/L (15-37) 02/27/20 00:30 ALT 13 U/L (12-78) 02/27/20 00:30 Alkaline Phosphatase 213 U/L (45-117) H 02/27/20 00:30 Troponin I 1.07 ng/mL (0.0-0.045) H* 02/28/20 02:11 Amylase 92 U/L (25-115) 02/27/20 00:30 Lipase 228 U/L (73-393) 02/27/20 00:30 Home Medications: Buproprion S.r. [Wellbutrin Sr*] 1 tab PO BID 02/27/20 Clopidogrel Bisulfate [Plavix*] 75 mg PO DAILY 02/27/20 Collagenase [Santyl Ointment*] 1 appl TOP DAILY 02/27/20 Fluticasone [Flovent Hfa 110*] 2 puff IH DAILY 02/27/20 Hydralazine [Apresoline*] 2 tab PO TID 02/27/20 Nifedipine [Nifedipine ER] 1 tab PO DAILY 02/27/20 allopurinoL [Allopurinol] 1 tab PO BID 02/27/20 Doxycycline Hyclate 100 mg PO BID #14 tablet 03/02/20 Epoetin [Retacrit] 10,000 unit IV EVERY HD vial 03/02/20 Gabapentin [Neurontin*] 100 mg PO TID #90 cap 03/02/20 Patrice [Patrice*] 1 pkt PO BID #60 powd.pack 03/02/20 Medihoney [Medihoney Woundcare Gel*] 1 appl TOP DAILY #1 tube 03/02/20 levoFLOXacin [Levaquin] 250 mg PO Q48H #3 tab 03/02/20 New Medications: Doxycycline Hyclate 100 mg PO BID #14 tablet Patrice [Patrice*] 1 pkt PO BID #60 powd.pack levoFLOXacin [Levaquin] 250 mg PO Q48H #3 tab Medihoney [Medihoney Woundcare Gel*] 1 appl TOP DAILY #1 tube Gabapentin [Neurontin*] 100 mg PO TID #90 cap Diet: ADA Activity: Ad shira Followup: Sharri Fernando MD [ACTIVE - CAN ADMIT] - 1-2 Weeks (Follow up in office in 1- 2 weeks. Call to schedule an appointment. ) Time spent managing pt's care (in minutes): 40
[2020-03-02] MEDS: BUDESONIDE 0.5 MG/2 ML NEB IH SCH (10:10)
[2020-03-02 10:34] VITALS: O2SAT 97
--- NOTE | 2020-03-02 12:10 | PN ---
Date of Progress Note: 03/02/2020 Subjective: The patient was admitted with non-ST elevation NC. Had wound infection. Had lymphedema . Physical Examination: Vital Signs: Blood pressure 161/77, pulse of 58, afebrile. The patient had dialysis yesterday. We managed to remove 3 L. The patient negative of 2 L. As weight [place], there is no significant drop in her weight. Chest: Clear to auscultation. Heart: S1, S2. Regular. Systolic murmur. Abdomen: Soft, nontender. Extremities: +2 edema. Dressing on the left leg. Neuro: Alert and oriented x3. No focal. Laboratory Data: WBC 7.7, H and H 8.4/26.5, platelets 260. Sodium 132, potassium 5, bicarb 27, BUN 37, creatinine 3.6, GFR of 13, calcium 8.1. Current Medications: The patient on include; 1.Doxycycline. 2.Levaquin 250 every 48 hours. 3.Plavix. 4.Lovenox. 5.Epogen. 6.Gabapentin 100 t.i.d. 7.Zofran. 8.Insulin. 9.Allopurinol. Assessment And Plan: 1.End-stage renal disease, peripheral edema without any respiratory symptoms. The patient is on susan m air. I am going to continue the patient on dialysis 3 times a week. I will arrange for dialysis t omorrow and we will follow up the patient. 2.Hypertension, not controlled. We will utilize blood pressure for more ultrafiltration. 3.Anemia of chronic kidney disease. Continue BRONWYN. 4.Secondary hyperparathyroidism. Continue binder. 5.Hyperkalemia, resolved. 6.Peripheral edema secondary to lymphedema. We will keep challenging the patient try to establish b smooth volume control. 7.Wound infection, multi-organism methicillin-resistant Staphylococcus aureus, Pseudomonas, Enteroco cci in the urine also. Continue current antibiotic. Follow up with ID recommendation. 8.Urinary tract infection as Enterococci aeruginosa. Continue Levaquin. Follow up with ID. NATI/CELESTINE Voice ID: [id number] Report ID: [id number]
[2020-03-02] MEDS: Levofloxacin 250mg IV 250 MG/50 ML BAG IV SCH (12:32)
--- NOTE | 2020-03-02 16:49 | PN ---
Subjective: The patient is sitting up in bed. Being discharged. No new event. Objective: Vital Signs: Stable. No new changes in examination. Extremities: Continued to have swelling in her legs. Assessment And Plan: Cellulitis of lower extremity, sepsis improved. Continue supportive care. Mon itor for signs of infection. Continue current treatment for the wound to the lower extremity. No ne w recommendations. NF/MODL Voice ID: [id number] Report ID: [id number]
[2020-03-02 17:36] VITALS: BP 95/51; TEMP 97.8
== END 2020-03-02 14:49 | disposition home health service (06) | DRG 853 ==
LOC: ER 23:58 → ERHOLD 02-27 02:40 → 2ND 02-27 03:31 → OBSVTOIN 02-27 13:20
PROVIDERS: ADMIT Internal Medicine; ATTEND Internal Medicine
PROC: 027034Z Dilation of Coronary Artery, One Artery with Drug-eluting Intraluminal Device, Percutaneous Approach (ICD-10-PCS; principal; 2020-02-28)
PROC: 4A023N7 Measurement of Cardiac Sampling and Pressure, Left Heart, Percutaneous Approach (ICD-10-PCS; 2020-02-28)
PROC: B2111ZZ Fluoroscopy of Multiple Coronary Arteries using Low Osmolar Contrast (ICD-10-PCS; 2020-02-28)
PROC: 5A1D70Z Performance of Urinary Filtration, Intermittent, Less than 6 Hours Per Day (ICD-10-PCS; 2020-02-28)
DX: A41.81 Sepsis due to Enterococcus (principal); I50.33 Acute on chronic diastolic (congestive) heart failure; N18.6 End stage renal disease; I21.4 Non-ST elevation (NSTEMI) myocardial infarction; I13.2 Hypertensive heart and chronic kidney disease with heart failure and with stage 5 chronic kidney disease, or end stage renal disease; N25.81 Secondary hyperparathyroidism of renal origin; N30.00 Acute cystitis without hematuria; E87.1 Hypo-osmolality and hyponatremia; L03.116 Cellulitis of left lower limb; L97.829 Non-pressure chronic ulcer of other part of left lower leg with unspecified severity; E11.22 Type 2 diabetes mellitus with diabetic chronic kidney disease; J44.9 Chronic obstructive pulmonary disease, unspecified; E88.09 Other disorders of plasma-protein metabolism, not elsewhere classified; I87.8 Other specified disorders of veins; E86.1 Hypovolemia; D63.1 Anemia in chronic kidney disease; I25.10 Atherosclerotic heart disease of native coronary artery without angina pectoris; E11.621 Type 2 diabetes mellitus with foot ulcer; I83.028 Varicose veins of left lower extremity with ulcer other part of lower leg; L97.529 Non-pressure chronic ulcer of other part of left foot with unspecified severity; N25.0 Renal osteodystrophy; E78.5 Hyperlipidemia, unspecified; B96.89 Other specified bacterial agents as the cause of diseases classified elsewhere; B96.5 Pseudomonas (aeruginosa) (mallei) (pseudomallei) as the cause of diseases classified elsewhere; B95.62 Methicillin resistant Staphylococcus aureus infection as the cause of diseases classified elsewhere; R65.20 Severe sepsis without septic shock; Z99.2 Dependence on renal dialysis; Z88.1 Allergy status to other antibiotic agents; Z88.5 Allergy status to narcotic agent; Z88.8 Allergy status to other drugs, medicaments and biological substances; Z91.09 Other allergy status, other than to drugs and biological substances; Z79.4 Long term (current) use of insulin; Z79.02 Long term (current) use of antithrombotics/antiplatelets; Z79.899 Other long term (current) drug therapy; Z85.42 Personal history of malignant neoplasm of other parts of uterus; Z89.412 Acquired absence of left great toe; Z87.891 Personal history of nicotine dependence; Z95.1 Presence of aortocoronary bypass graft; Z90.710 Acquired absence of both cervix and uterus; Z90.49 Acquired absence of other specified parts of digestive tract; Z20.828 Contact with and (suspected) exposure to other viral communicable diseases
CPT/HCPCS: 36415; 51702; 71045; 80048; 80076; 81003; 81015; 82140; 82150; 82550; 82553; 82947; 83605; 83690; 83735; 84100; 84145; 84484; 85025; 85347; 85379; 85610; 85730; 86140; 86850; 86900; 86901; 87040; 87070; 87077; 87086; 87088; 87186; 87205; 90935; 93005; 93306; 93455; 93567; 94640; 97110; 97530; 99285; C1725; C1893; C9600; G0378; J1200; J1644; J1650; J1940; J2250; J2405; J2930; J3010; J3590; J7040; P9047; Q5105; U0002

== ENCOUNTER 2020-03-09 22:04 | Observation (INO) | payer OTHER, MEDICAID ==
--- OUTSIDE RECORDS SUMMARY | 2020-03-09 22:09 | XMS REPORT | Clinical Summary ---
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 05/19/2017 [...] Lisa vascular diseas e) with hadley on ([facility]) (Primary Dx) 12/16/2019 Orders Only Shiva Anderson, RN after 03/09/2019 Family History Medical History Relation Name Comments [...] YRS Completed 01/11/2014 Implants Implanted Type Area Shoe Sprayer Device Shelf Model / Identifier Expiration Serial / Date Lot Device Clsr Angio-Seal Vip 8fr [id number] - [id number] Cardiovascular N/A: ST EVELYN 01/28/2018 [id number] / Implanted: Qty: 1 on 05/12/2017 by Joana Powers, Sandra Carter MD at [facility] Groin MED:CARDIAC / SURG [id number] Grft Eptfe-Heparin Rng [id number] - [id number] Graft/P atch Right: SUHAS GORE & 04/09/2021 [id number] / Implanted: Qty: 1 on 08/05/2017 by Mariela Santamaria MD at [facility] Leg ASSC:MED PRDT [id number] / N/A Description:GORE PROPATEN VASCULAR GRAFT REMOVABLE [...] procedure are in the results section. after 03/09/2019 Results EKG-SCANNED (01/05/2020 8:40 AM CDT) Narrative [...] POC-Glucose Meter 102Comment: : 70 - 110 [facility] mg/dL [facility] [address] [facility] [id number]: Manager Of Case Management/Technicia n ID = [id number] for Anne Salgado Specimen Blood Performing Organization Address City/State/Zipcode Phone Number [facility] [address] [place] [address] CENTER CBC with platelet count [...] LABORATORY e Specimen Blood Performing Organization Address City/[facility]/Zipcode Phone Number [place] [address], [place] [address] Comprehensive metabolic panel (01/01/2020 5:37 [...] DIALYSIS PATIENTS. Specimen Blood Narrative Performed At Manager Of Case Management ID - ADMIN [facility] Performing Organization Address City/[facility]/Zipcode Phone Number [facility] [address], [place] [address] Magnesium (12/31/2019 6:05 AM CDT) Pathologist Sig nature Magnesium 1.6 1.5 - 3.0 mg/dL [facility] Specimen Blood Narrative Performed At Manager Of Case Management ID - ADMIN [facility] Performing Organization Address City/[facility]/Zipcode Phone Number [facility] [address], [place] [address] Anaerobic culture (12/30/2019 1:59 PM CDT)Only the most recent of2 results within the time period is included. Pathologist Sig nature Result No anaerobes isolated [facility] Result <1+ Coagulase negative [place] Staphylococcus (A) LABORATORY Specimen Tissue - Structure of left foot (body st ructure) Organism Antibiotic Method Susceptibility Coagulase negative Staphylococcus Oxacillin 1: Susceptible Coagulase negative Staphylococcus Rifampin <=0.5: Susceptible Coagulase negative Staphylococcus Vancomycin <=0.5: Susceptible Performing Organization Address City/[facility]/Zipcode Phone Number [facility] [address], [place] [address] Surgically obtained culture + gram stain (12/30/2019 1:59 PM CDT)Only the most recent of2 resultswithin the time period is included. Result 2+ Stenotrophomonas [place] maltophilia (A) LAB[facility]ATORY Gram Stain Result <1+ WBCs [facility] Gram Stain Result No organisms seen [facility] Specimen Tissue - Structure of left foot (body st ructure) Organism Antibiotic Method Susceptibility Stenotrophomonas maltophilia Levofloxacin 1: Susceptible Stenotrophomonas maltophilia Trimethoprim + Sulfamethoxazole <=20: Susceptible Performing Organization Address City/[facility] Phone Number [facility] [address], [place] [address] Tissue Exam (12/30/2019 1:38 PM CDT) Case Report Surgical Pathology Report Case: [id number] [facility] Authorizing Provider: Tala Lemus DPM Collected: 12/30/2019 01:38 PM LABORATORY Ordering Location: [address] Med/Surg Received: 12/31/2019 06:52 AM Pathologist: Jovita Griffith MD Specimens: A) - Soft Tiss ue, Other, left 5th proximal phalanx B) - [place] tarsal, Left, left 5th metatarsal DIAGNOSIS A. BONE, LEFT FIFTH PROXIMAL PHALANX, BIOPSY: [place] Electronically - SKIN WITH UNDERLYING CA RTILAGE WITH SURROUNDING ACUTE AND CHRONIC INFLAMMATION LABORATORY signed by Jovita Griffith MD B. BONE, LEFT FIFTH METATARSAL, BIOPSY: on 01/04/2020 at - ACUTE OSTEOMYELITIS 10: 21 AM - SEPARATE FRAGMENTS OF F IBROCONNECTIVE TISSUE WITH ABSCESS, NECROSIS AND GRANULATION TISSUE FORMATION Signing Pathologist Direct Phone Line: [phone] CPT Code(s) MG/ew [place] [address] x2 LABORATORY 55793 x2 CLINICAL HISTORY Osteomyelitis of left [facility] [...] performed at Hospital, Department LABORATORY of Pathology, [address] [place] [address], Technical [facility] [address] Zana GALAN component was Medical [place], LABORATORY performed at Department of Pathology, [address] [place] [address], Professional [address] Zana GALAN component was Hospital, Department LABORATORY performed at of Pathology, [address] [place] [address], Specimen Tissue - Soft tissue (navigational alda pt) Tissue specimen (specimen) - Metatarsal, Left Narrative Performed At This result has an attachment that is no t available. Performing Organization Address City/State/Zipcode Phone Number [facility] [address] [place] [phone] SARS-CoV2/RT-PCR (Asymptomatic ONLY) (12/30/2019 5:11 AM CDT)Only the most recent of3 resultswithin the time period is included. SARS-COV2/RT-PCR Negative Not Detected, KATHRYN FOOTE Negative, See [facility] external report CENTER for linked test SARS-COV-2 [facility] JANET FOOTE PERFORMING LAB [facility] Specimen Other - Nasopharyngeal wall structure (b yocasta structure) Narrative Performed At Negative result for this test determines that [facility] ST Viraj [facility] SARS-CoV-2 RNA was not present in the [...] the Act. Fact Sheet for Healthcare Providers: https://www.[employer].com/sites/default/files/pro duct/documents/Fact_Sheet_HC_Providers_Lyra_SA RS-CoV-2.pdf Fact Sheet for Healthcare Patients: https://www.[employer].HighlightCam/sites/default/files/pro duct/documents/Fact_Sheet_Patients_Lyra_SARS-C oV-2.pdf Performing Laboratory: [facility] [address] [facility] [place] [address] Performing Organization Address City/State/Zipcode Phone Number [facility] [address], [place] [phone] CENTER MR lower extremity without IV contrast left side (12/27/2019 4:30 PM CDT) Specimen Narrative Performed At FINAL REPORT [facility] MRI OF THE LEFT FOOT WITHOUT CONTRAST [...] Report Verified Date/Time: 12/27/2019 16:55:07 Reading Location: [facility] Radiology Reading Room Procedure Note Interface, External [...] Verified Date/Time: 12/27/2019 1 6:55:07 Reading Location: [facility] Radiology Reading Room Performing Organization Address City/State/Zipcode Phone Number [facility] Wound culture + gram stain (12/27/2019 12:02 PM CDT) Result 1+ Stenotrophomonas [place] maltophilia (A) LABORATORY Result 1+ Kary parapsilosis [place] (A) [facility] Gram Stain Result <1+ WBCs [facility] Gram Stain Result <1+ gram negative rods [facility] Specimen Wound - Structure of right foot (body st ructure) Organism Antibiotic Method Susceptibility Stenotrophomonas maltophilia Levofloxacin 2: Susceptible Stenotrophomonas maltophilia Trimethoprim + Sulfamethoxazole <=20: Susceptible Performing Organization Address City/State/Zipcode Phone Number [facility] [address] [facility] [place], [place] [address] TRANSFUSION SERVICE REPORT - SCAN (12/26/2019 6:02 PM CDT)Only the most recent of2 resultswithin the time period is included. Narrative Performed At This result has an attachment that is no t available. CTA AAA and Runoff (12/26/2019 3:27 PM CDT) Specimen Narrative Performed At Addendum Begins [facility] RIS REPORT STATUS:A I agree with the nonvascular findings wi th exceptions and emphasis as below: *Moderate right and small left pleural e ffusions are partially visualized. *Large volume ascites. *Diffuse anasarca *The reflux of contrast into the hepatic veins is concerning for volume overload. Signed: Gerry Crum MD Report Verified Date/Time: 12/27/2019 11:38:28 Reading Location: [facility] Reading Room - [place] [address] Addendum Ends FINAL REPORT CT angiography of the abdominal aorta an d runoff, 26-Dec-19 INDICATION: This is a 64 year old female with with lower leg penetrating trauma presents for assessme nt. TECHNIQUE: Spiral acquisition before and during intravenous contrast administration using a TrenStar multidetector CT scanner. Images were obtained before [...] identified. However, significant calcification identified of the absentee-shawnee left SFA, for e xample at image [...] righ t popliteal artery is patent, with ngoc-uk-[id number] diffuse calcificat ion identified with no obstructive [...] rosclerosis identified. 4. In the right, the absentee-shawnee right SFA is not filled by contrast [...] regard ing the non-vascular findings by the Clinical Quality Manager Radiologist. Signed: Shlomo Dockery MD Report Verified Date/Time: 12/27/2019 07:59:51 Reading Location: [place] [address] CT Reading Room Procedure Note Interface, External [...] Verified Date/Time: 12/27/2019 1 1:38:28 Reading Location: [facility] Imagin Reading Room - [facility] F1 112[address] Addendum Ends FINAL REPORT CT angiography of the abdominal aorta an saige runoff, 26-Dec-19 INDICATION: This is a 64 year old female with with lower leg penetrating trauma presents for assessme nt. TECHNIQUE: Spiral acquisition before and during intravenous contrast administration using a TrenStar multidetector CT scanner. Images were obtained before [...] identified. However, significant calcification identified of the absentee-shawnee left SFA, for e xample at image [...] righ t popliteal artery is patent, with vmwq-vd-[id number] diffuse calcificat ion identified with no obstructive [...] rosclerosis identified. 4. In the right, the absentee-shawnee right SFA is not filled by contrast [...] regardadonis gtz the non-vascular findings by the Clinical Quality Manager Radiologist. Signed: Shlomo Dockery MD Report Verified Date/Time: 12/27/2019 0 7:59:51 Reading Location: [place] [address] [address] Reading Room Performing Organization Address City/[facility]/Zipcode Phone Number GE RIS Prepare Leuko-Red RBC (12/25/2019 11:54 PM CDT) Pathologist Sig nature CROSSMATCH COMPATIBLE SAFETRACE TX Unit ABO O Pos SAFETRACE TX UNIT NUMBER [phone] SAFETRACE TX Status TX_TIMEINCHART SAFETRACE TX Blood Bank Product RED BLOOD CELLS SAFETRACE TX PRODUCT CODE [id number] SAFETRACE TX Specimen Other Performing Organization Address [facility] Phone Number SAFETRACE TX Transfuse Leuko-Red RBC (12/24/2019 7:06 PM CDT)ABORH, manual (12/24/2019 8:25 AM CDT) Pathologist Sig nature Rh Factor POS [facility] ABO Grouping OComment: [facility] 12/24/19 @ 0824 HOSPITAL Specimen Blood Performing Organization Address [facility] Phone Number [facility] [address] [place] [address] [facility] Type and screen, automated (12/24/2019 6:08 AM CDT) Pathologist Sig nature ABO/RH AUTOMATED O [facility] (BEAKER) POSITIVEComment [facility] : ECHO Ab Scrn NEGATIVEComment [facility] : [facility] Specimen Blood Performing Organization Address [facility] Phone Number [facility] [address] [place] [address] [facility] MR lower extremity joint only without [...] Report Verified Date/Time: 12/23/2019 16:10:32 Reading Location: [address] Reading Room Procedure Note Interface, External [...] Verified Date/Time: 12/23/2019 1 6:10:32 Reading Location: [facility] [id number] Ortho Con sult Reading Room Performing Organization Address City/State/Zipcode Phone Number [facility] RUST MR brain without IV contrast (12/23/2019 3:34 PM CDT) Specimen Narrative Performed At FINAL REPORT [facility] RUST MR, BRAIN, WITHOUT CONTRAST INDICATION: Headache, post [...] 5:43:24 Performing Organization Address City/State/Zipcode Phone Number [facility] Arterial Doppler Legs Bilateral (12/23/2019 9:38 AM CDT) Specimen Narrative Performed At FINAL REPORT [facility] EXAM: Bilateral Lower Extremity Arterial Ultrasound HISTORY: [...] Report Verified Date/Time: 12/23/2019 11:22:31 Reading Location: [facility] Radiology [facility] Room Procedure Note Interface, External Ris [...] Verified Date/Time: 12/23/2019 1 1:22:31 Reading Location: [facility] Radiology [facility] Performing Organization Address City/[facility] Phone Number [employer] Ammonia (12/23/2019 4:05 AM CDT)Only the most recent of2 resultswithin the time period is included. Pathologist Sig nature Ammonia 36 17 - 80 mol/L [facility] Specimen Blood Narrative Performed At Manager Of Case Management ID - ADMIN [facility] Performing Organization Address [facility] Phone Number [facility] [address], [place] [address] C-Reactive Protein (12/21/2019 4:39 AM CDT) Pathologist Sig nature CRP 1.63 (H) 0.00 - 0.50 mg/dL [place] Specimen Blood Narrative Performed At Manager Of Case Management ID - ADMIN [facility] Performing Organization Address [facility] Phone Number [facility] [address] [place] [phone] US abdomen complete (12/20/2019 9:17 PM CDT) Specimen Narrative Performed At FINAL REPORT [facility] INDICATION: thrombocytopenia / eval for hepatosplenomegaly COMPARISON: [...] 2:02:21 Performing Organization Address City/State/Zipcode Phone Number [facility] CT brain without IV contrast (12/20/2019 4:04 PM CDT) Specimen Narrative Performed At FINAL REPORT [facility] CT, BRAIN, WITHOUT CONTRAST INDICATION: Head trauma, [...] Date/Time: 12/20/2019 1 6:08:40 Performing Organization Address City/[facility] Phone Number [facility] Blood gas, arterial (12/20/2019 2:28 PM CDT) [...] [facility] FIO2 32.0 % [facility] Specimen Blood, Arterial Performing Organization Address City/[facility]/Zipcode Phone Number [facility] [address] [place] [phone] XR foot 2 views right (12/20/2019 11:55 AM CDT) Specimen Narrative Performed At FINAL REPORT [facility] TECHNIQUE: Two views of the right foot [...] Report Verified Date/Time: 12/20/2019 15:15:25 Reading Location: [facility] Radiology Readin g Room Procedure Note [...] Verified Date/Time: 12/20/2019 1 5:15:25 Reading Location: [facility] Radiology Readin g Room Performing Organization Address City/State/Zipcode Phone Number GE RIS XR foot 2 views left (12/20/2019 11:55 AM CDT) Specimen Narrative Performed At FINAL REPORT [facility] TECHNIQUE: Two views of the right foot [...] Report Verified Date/Time: 12/20/2019 15:15:25 Reading Location: [facility] Radiology Readin g Room Procedure Note [...] Verified Date/Time: 12/20/2019 1 5:15:25 Reading Location: [facility] Radiology Readin g Room Performing Organization Address City/[facility]/Zipcode Phone Number GE RIS Occult blood, stool (12/20/2019 6:19 AM CDT) Pathologist Sig nature Occult blood Negative Negative [facility] Specimen Stool - Feces (substance) Performing Organization Address [facility] Phone Number [facility] [address], [place] [address] Peripheral Blood Smear - Path Review (12/20/2019 5:06 AM CDT) RBC Morphology Target Cells [place] Basophilic Stippling LABORATORY Nucleated Red Blood Cells Pathologist Review Normochromic normocytic [place] anemia with a few LABORATORY target cells, nucleated RBCs and basophilic stippling. No increase in schistocytes. WBCs normal in number and morphology. Thrombocytopenia with normal platelet morphology. Pathologist: Jovita Griffith M.D. [facility] (electronic signature) [facility] Specimen Blood Performing Organization Address [facility] Phone Number [facility] [address], [place] [address] Vitamin B12 and Folate (12/20/2019 5:06 AM CDT) Pathologist Sig [facility] Vitamin B12 1,431 (H) 211 - 911 pg/mL [facility] Folate 17.00 >=5.4 ng/mL [facility] Specimen Blood Narrative Performed At Manager Of Case Management ID - ADMIN [facility] Performing Organization Address [facility] Phone Number [facility], [place] [address] TSH/Free T4 If Indicated (12/20/2019 5:06 AM CDT) Pathologist Sig [facility] TSH 21.210 (H) 0.350 - 5.500 uIU/mL [place] Y Specimen Blood Narrative Performed At Manager Of Case Management ID - ADMIN [facility] Performing Organization Address [facility] Phone Number [facility] [address], [place] [address] PT/aPTT (12/20/2019 5:06 AM CDT) Pathologist Sig nature Protime 13.5 (H) 9.3 - 12.0 sec [facility] INR 1.25 <=5.90 [facility] PTT 38.2 (H) 23.0 - 35.0 sec [facility] Specimen Blood Narrative Performed At RECOMMENDED COUMADIN/WARFARIN INR THERAP Y RANGES [facility] STANDARD DOSE: 2.0 - 3.0 Includes: PROPHYLAXIS for venous thrombosis, systemic embolization; TREATMENT for venou s thrombosis and/or pulmonary embolus. HIGH RISK: Target INR is 2.5-3.5 for patients with mec hanical heart valves. Final Information (Auto Output) Final Information (Auto Output) Final Information (Auto Output) Performing Organization Address City/State/Zipcode Phone Number [facility] [address] [place] [phone] Iron, TIBC, % sat. (without ferritin) (12/20/2019 5:06 AM CDT) Pathologist Sig nature Iron 92.0 45.0 - 170.0 [facility] ug/dL TIBC 151 (L) 250 - 550 ug/dL [facility] Iron % Saturation 61 (H) 20 - 55 % [facility] Specimen Blood Narrative Performed At Manager Of Case Management ID - ADMIN [facility] Performing Organization Address City/[facility]/Zipcode Phone Number [facility] [address] [place] [phone] ROGER Titer & Pattern (12/20/2019 5:06 AM CDT) Pathologist Sig nature ROGER Titer 1:40 [facility] ROGER Pattern Speckled [facility] Specimen Blood Performing Organization Address City/State/Zipcode Phone Number [facility] [address] [place] [address] CENTER [place] / lambda light chains, serum (12/20/2019 5:06 AM CDT) [place] Lt 474.4 (H) 3.3 - 19.4 [facility] Chain,Free mg/L INCORPORATED Lambda Lt 225.6 (H) 5.7 - 26.3 [facility] Chain,Free mg/L INC[facility]PORATED [place]/Lambda,Fr 2.10 (H) 0.26 - 1.65 [facility] [...] Lab [facility] EZ [facility] [address] [place] [address] Adonis Stein MD, PhD, CORI Performing Organization Address City/[facility] Phone Number [place] [address] INCORPORATED [address] [facility] Fibrinogen (12/20/2019 5:06 AM CDT) Pathologist Sig nature Fibrinogen 340 200 - 400 mg/dL [facility] Specimen Blood Narrative Performed At Final Information (Auto Output) [facility] Performing Organization Address [facility] Phone Number [facility] [address] [place] [phone] D-dimer (12/20/2019 5:06 AM CDT) Pathologist Sig nature D-Dimer, Quant 1.09 (H) <0.50 mg/L [facility] Specimen Blood Narrative Performed At REGARDING D-DIMER RESULTS: The 98% NPV (Negative Predi ctive [facility] Value) for DVT/PE exclusion is 0.50 mg/L FEU as sugges merna by the supervisor concrete stone fabricating and as approved by the FDA. Final Information (Auto Output) Performing Organization Address [facility] Phone Number [facility] [address], [place] [phone] Reticulocyte count (12/20/2019 5:06 AM CDT) Pathologist Sig nature % Retic 5.9 (H) 0.4 - 2.9 % [facility] Specimen Blood Performing Organization Address [facility] Phone Number [facility] [address], [place] [phone] Anti-Nuclear Antibody (ROGER) (12/20/2019 5:06 AM CDT) Pathologist Sig nature ROGER Positive (A) Negative [facility] Specimen Blood Narrative Performed At Test performed by IFA method. [facility] Performing Organization Address City/[facility]/Zipcode Phone Number [facility] [address], [place] [phone] CENTER T4, free (12/20/2019 5:06 AM CDT) Pathologist Sig nature Free T4 0.52 (L) 0.90 - 1.80 ng/dL [facility] Specimen Blood Narrative Performed At Manager Of Case Management ID - ADMIN [facility] Performing Organization Address [facility]/Zipcode Phone Number [facility] [address], [place] [phone] Protein electrophoresis, serum (12/20/2019 5:06 AM CDT) Albumin Fraction 2.4 (L) 3.5 - 5.5 [facility] g/dL [facility] Alpha 1 Fraction 0.4 0.2 - 0.4 [facility] g/dL [facility] Alpha 2 Fraction 0.4 (L) 0.5 - 0.9 [facility] g/dL [facility] Beta Fraction 0.8 0.6 - 1.1 [facility] g/dL [facility] Gamma Globulin 2.3 (H) 0.7 - 1.7 [facility] Fraction g/dL [facility] Interpretation Decreased albumin, [facility] suggestive of renal [facility] damage. Polyclonal [facility]ENTER elevation of gamma fraction, suggesting chronic inflammatory response. No monoclonal bands detected. Pathologist: KATHRYN Rothman MD (electronic [facility] signature) [facility]ENTER Protein, Total 6.3 6.0 - 8.3 [facility] gm/dL [facility] Specimen Blood Narrative Performed At Manager Of Case Management ID - LEONIE Jay [facility] Performing Organization Address City/State/Zipcode Phone Number [facility] [address], [place] [id number] CENTER Haptoglobin (12/20/2019 5:06 AM CDT) Pathologist Sig nature Haptoglobin <8 (L) 14 - 258 mg/dL [facility] Specimen Blood Narrative Performed At Manager Of Case Management ID - LEONIE Jay [facility] Performing Organization Address City/State/Zipcode Phone Number [facility] [address] [place] [address] CENTER Ferritin (12/20/2019 5:06 AM CDT) Pathologist Sig nature Ferritin 595.00 (H) 10.00 - 291.00 ng/mL [facility] Specimen Blood Narrative Performed At Manager Of Case Management ID - ADMIN [facility] Performing Organization Address [facility] Phone Number [facility], [place] [address] Lactate dehydrogenase (LDH) (12/19/2019 5:35 AM CDT) Pathologist Sig nature LDH 178 107 - 206 U/L [facility] Specimen Blood Narrative Performed At Manager Of Case Management ID - ADMIN [facility] Performing Organization Address [facility] Phone Number [facility] [address] [place] [phone] Basic Metabolic Panel (12/19/2019 5:35 [...] DIALYSIS PATIENTS. Specimen Blood Narrative Performed At Manager Of Case Management ID - [facility]MIN [facility] Performing Organization Address City/State/Zipcode Phone Number [facility] [address], [place] [address] Hepatitis C antibody (12/16/2019 4:02 PM CDT) Pathologist Sig nature Hepatitis C Ab Nonreactive Nonreactive [facility] Specimen Blood Narrative Performed At Manager Of Case Management ID - [facility] Performing Organization Address City/State/Zipcode Phone Number [address] [address] CENTER Hepatitis B core antibody, total (12/16/2019 4:02 PM CDT) Pathologist Sig nature Hep B Core Total Ab Nonreactive Nonreactive [facility] Specimen Blood Narrative Performed At Manager Of Case Management ID - [facility]ENTER Performing Organization Address City/State/Zipcode Phone Number [address] [address] CENTER Hepatitis B surface antibody (12/16/2019 4:02 PM CDT) Pathologist Sig nature Hep B S Ab <8.0 <8.0 mIU/mL [facility] Specimen Blood Narrative Performed At Manager Of Case Management ID - [facility] Performing Organization Address City/State/Zipcode Phone Number [address] [address] CENTER Hepatitis B surface antigen (12/16/2019 4:02 PM CDT) Pathologist Sig nature HBsAg Screen Nonreactive Nonreactive [facility] Specimen Blood Narrative Performed At Manager Of Case Management ID - [facility] Performing Organization Address City/State/Zipcode Phone Number [facility] [address] [facility] [place] [address] IR Tunneled Catheter Insertion (12/16/2019 2:26 PM CDT) Specimen Narrative Performed At FINAL REPORT [facility] Tunneled dialysis catheter insertion. History: Renal [...] the patient's medical record by the nurse. Baseball Sewer Hand: Arlin Flores M.D. Spar Finisher: none. Approach: Right internal jugular vein Estimated [...] needle into the right atrium. A 4 [place]ian micropuncture sheath was placed and a 0.035 wire was advanced into the IVC. A subcutane ous tunnel was created in the left anterior chest wall by blunt dissec tion. A 23 cm tip to cuff 15.5 [place] Duraflow 2 catheter was brou ght through [...] Report Verified Date/Time: 12/16/2019 15:06:45 Reading Location: [facility] Radiology [facility] Procedure Note Interface, External Ris In - [...] the patient's medical record by the nurse. Baseball Sewer Hand: Arlin Flores M.D. Spar Finisher: none. Approach: Right internal jugular vein Estimated [...] needle into the right atrium. A 4 [place]undian micropuncture sheath was placed and a 0.035 wire was advanced into the IVC. A subcutaneo us tunnel was created in the left anterior chest wall by blunt dissec tion. A 23 cm tip to cuff 15.5 [place] Duraflow 2 catheter was brou ght through [...] Verified Date/Time: 12/16/2019 1 5:06:45 Reading Location: [facility] Radiology [facility] Room Performing Organization Address City/State/Zipcode Phone Number [facility] XR chest 1 view portable / bedside (12/16/2019 5:55 AM CDT) Specimen Narrative Performed At FINAL REPORT [facility] TECHNIQUE: Frontal view of the chest. INDICATION: [...] Report Verified Date/Time: 12/16/2019 09:20:06 Reading Location: [facility] Radiology Readin g Room Procedure Note [...] Verified Date/Time: 12/16/2019 0 9:20:06 Reading Location: [facility] Radiology Readin g Room Performing Organization [...] Output) Performing Organization Address City/State/Zipcode Phone Number [facility] [address] [facility] [place] [address] after 03/09/2019 Insurance Payer Benefit Plan / Subscriber ID Effective Dates Phone Addre ss Type Group [place]ID [place] [id number] 2011-Present Advance Directives For more information, please contact: [phone] Code Status Date Activated Date Inactivated Comments [...]
--- OUTSIDE RECORDS SUMMARY | 2020-03-09 22:19 | XMS REPORT | Continuity of Care Document ---
:1955 Author Organization [facility] t Address [address] [place] [address] Care Team Providers Name Role Phone Landy Rendon Primary Care Physician LISA MOHAMUD Attending Clinician Unavailable Cade PIERRE, Lisa Attending Clinician Kj PIERRE, Merfanta Attending Clinician Urmila PIERRE, Cesia Attending Clinician Neeta THOMPSON, Thy Attending Clinician Belkis PIERRE, Taj Attending Clinician Monica VANEGAS Attending Clinician Unavailable [...] Date Expiration Date Sour ce Number CAMI [id number] [facility] MEDICAIDMEDICAID 00:00:00 - Medica nicolle [id number]/1/[id number] Ce nter 2-Present Problems Condition Condition Condition Status Onset Resolution Last Treating Co mments Source Name Details Category Date Date Treatment Clinician Date Kidney Kidney Disease Active [facility] disease disease 9- [facility] - [facility] 00 Center S/P S/P Disease Active Overview: [facility] femoral-po femoral-po 6-05 Right on [facility] - pliteal pliteal 00:00: 08/05/17 Medical bypass bypass 00 Center surgery surgery Hyperlipid Hyperlipid Disease Active [facility] emia emia 5-10 [facility] - 00:00: Medical 00 [place] History of History of Disease Active [facility] IBS IBS 5-10 [facility] - 00:00: Medical [place] Leukocytos Leukocytos Disease Active [facility] is is 5-10 [facility] - 00:00: Medical 00 [place] PVD PVD Disease Active [facility] (periphera [...] anemia 2-26 [facility] - 00:00: Medical 00 [place] 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 2-23 Janna kes - alicia alicia 00:00: Medical malnutriti malnutriti 00 Ce nter on on TRACY (acute TRACY (acute Disease Active [facility] kidney kidney 2-21 [facility] - injury) injury) 00:00: Medical 00 [place] Chronic Chronic Disease Active [facility] kidney kidney 2-21 [facility] - disease, disease, 00:00: Medica l stage 3 stage 3 00 Center CAD CAD Disease Active Overview: [facility] (coronary (coronary 2-20 S/p CABG- L ukes - artery artery 00:00: PRITCHETT-LAD, Medical disease) disease) 00 SVG-PDA,r Matthew hein,OM3 on 05/20/17 Atheroscle Atheroscle Disease Active Overview : [facility] rosis of rosis of 2-19 RLE PVD [facility] - oneida oneida 00:00: Medical artery of artery of 00 Cent er extremity extremity with with ulceration ulceration Acute CHF Acute CHF Disease Active [facility] 2-14 [facility] - 00:[facility]: Medical 00 Center COPD COPD Disease Active [facility] (chronic (chronic -14 [facility] - obstructiv obstructiv 00:00: Fl dical e e 00 Center pulmonary pulmonary disease) disease) Controlled Controlled Disease Active [facility] type 2 type 2 2-14 [facility] - diabetes diabetes 00:00: Medica l mellitus mellitus 00 Center with with 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 y disorder, disorder, with with long-term long-term current current use of use of insulin insulin Smoker Smoker Disease Active [facility] 2-14 [facility] - 00:[facility]: Medical 00 Center Frequent Frequent Disease Active [facility] PVCs PVCs 2-12 [facility] - 00:[facility]: Medical 00 Center Essential Essential Problem Active [facility] (primary) (primary) Luke s - hypertensi hypertensi [facility] Depression Depression Problem Active [facility] , , [facility] - unspecifie unspecifie Me [facility] depression depression Ou tpati type type ent Clinics History of History of Problem Active [facility] cancer cancer [facility] - Memoria l [facility] Primary Primary Problem Active [facility] insomnia insomnia [facility] - Memoria l [facility] Chronic Chronic Problem Active [facility] acquired acquired [facility] - lymphedema lymphedema Me moria l [facility] Chronic Chronic Diagnosis Active CHI [...] diastolic diastolic Luke s - congestive congestive [facility] heart heart l failure, failure, Outpat i NYHA class NYHA class en t 2 2 Clinics Chronic Chronic Problem Active [facility] obstructiv obstructiv Janna kes - e e Memoria pulmonary pulmonary l disease, disease, Outpat i unspecifie unspecifie en t d COPD d COPD Clinics type 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 Problem Active [facility] current current [facility] - use of use of Memoria insulin insulin l [facility] ent Clinics History of History of Problem Active [facility] stroke stroke [facility] - Memoria l [facility] ent [facility] 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[address] [address] diabetes diabetes [facility] - mellitus mellitus Memori a with with l hyperglyce hyperglyce Ou tpati [facility] 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[address] diabetes diabetes [facility] - mellitus mellitus Memori a with with l diabetic diabetic Outpat i chronic chronic ent kidney kidney Clinics disease disease Kidney Kidney Problem Active [facility] disease disease [facility] - Memoria l [facility] ent [facility] Allergies, Adverse Reactions, Alerts Allergy Allergy Status Severity Reaction(s) Onset Inactive Treating Comm ents Source Name Type Date Date Clinician Trazodon Drug Active Nausea And [address] [facility] e Allergy Vomiting 212 [facility] - 00:00: Medical 00 Center Amoxicil Propensi Active Diarrhea [address] kenzie-Pot ty to 04-21 [facility] - Clavulan adverse 00:00: Medical ate reaction 00 Center s Basil Propensi Active Nausea Only [address] [facility] ty to 04-21 [facility] - adverse 00:00: Medical reaction 00 [place] s Morphine Propensi Active Anaphylaxis [address] ty to 04-21 [facility] - adverse 00:00: Medical reaction 00 Center s Nitrogly Propensi Active Nausea And [address] [facility] cerin ty to Vomiting 04-21 ONLY [facility] - adverse 00:00: Medical reaction 00 [place] s Vancomyc Propensi Active Nausea And [address] in ty to Vomiting 04-21 [facility] - Analogue adverse 00:00: Medical s reaction 00 [place] s Vancomyc Adverse Active vomiting [facility] t in HCl Reaction [facility] - Memoria l [facility] ent [facility] Nitrogly Adverse Active vomiting [facility] cerin Reaction [facility] - Memoria l [facility] ent [facility] Morphine Adverse Active headache, [facility] Sulfate Reaction breathing Luke s - Memoria l [facility] ent [facility] Clindamy Adverse Active vomiting [facility] t riley HCl Reaction [facility] - Memoria l Outpati ent Clinics Family History Family Member Diagnosis Comments Start Date Stop Date Source Natural father COPD [facility] Natural father Cancer [facility] Natural father Hypertension [facility] Natural mother No Known Problem [facility] Natural sister Asthma [facility] Natural sister COPD [facility] Social History Social Habit Start Date Stop Date Quantity Comments Source Sex Assigned At [facility] Cigarettes smoked 2019-12-31 2019-12-31 KATHRYN Pedro - current (pack per 00:00:00 00:00:00 [facility] day) - Reported Cigarette 2019-12-31 2019-12-31 [facility] [address] Ortega - pack-years 00:00:00 00:00:00 [facility] Tobacco use and 2019-12-31 2019-12-31 Never used [facility] St Janna lebron - exposure 00:00:00 00:00:00 [facility] Alcohol intake 2019-12-31 2019-12-31 [facility]:00:00 non-drinker of Medical Ce nter alcohol (finding) History of tobacco 2017-05-12 Current smoker Jaguar Pedro - use 00:00:00 [facility] Smoking Status Start Date Stop Date Source Former smoker 2019-12-31 00:00:00 2019-12-31 00:00:00 [facility] Medications Ordered Filled Start Stop Current Ordering Indication Dosage Frequency Signature Comments Components Source Medication Medication Date Date Medication? Clinician (SIG) Name Name mupirocin 2019-03 Yes QD Apply [facility] (BACTROBAN) 0-03 topically Lay es - 2 % 10:49: daily. Medical ointment 00 [place] collagenase 2019-03 Yes QD Apply [facility] t (SANTYL) 0-03 topically [facility] - 250 units/g 10:49: daily. Medi marilin ointment [address] [place] [address] bumetanide 2019-03 Yes 2mg [id number] Take [address] (BUMEX) 2 0-03 [id number] by mouth 3 [facility] - MG tablet 10:49: 3D (three) Medic al 00 times [place] daily. insulin 2019-[address] [facility] [...] QD Take [address] (ADALAT CC) 4-09 09-17 tablet (60 L ukes - 60 MG [...] [address] pratropium 06-01 puffs by Lu s - (COMBIVENT 00:00: 00:00 mouth via M edical RESPIMAT) 00 :00 inhaler Center 20-100 every 6 mcg/actuati (six) on Mist hours. inhaler insulin 2019- No 5U QD Inject [facility] detemir 06-01 0.05 [facility]s [facility] - (LEVEMIR 00:00: 00:00 (5 Units Medi [...] Memoria EVERY DAY l [facility] Clin[facility] Acetaminoph Acetaminoph Yes Franki (Schedule [facility] en-Codeine en-Codeine Jas III Drug) [facility] - #3 #3 TAKE 1 Memoria TABLET BY l MOUTH [facility] EVERY 6 ent HOURS Clinics NEEDED FOR PAIN Carvedilol Carvedilol Yes Franki TAKE [address] [facility] Jas TABLET BY Lukes - MOUTH Memoria TWICE A l DAY [facility] Advair Advair Yes Franki INHALE 1 [facility] t Diskus Diskus Jas DOSE BY Lukes - MOUTH Memoria TWICE l DAILY. [facility] RINSE ent MOUTH Clinics AFTER USE Atorvastati Atorvastati Yes Franki TAKE [address] [facility] n Calcium n Calcium Jas TABLET BY Lukes - MOUTH Memoria EVERY DAY l Outpati ent Clinics Allopurinol Allopurinol Yes Franki TAKE [address] [facility] Jas TABLET BY Lukes - MOUTH Memoria TWICE A l DAY [facility] Gabapentin Gabapentin Yes Franki TAKE [...] Jas UNITS [place] es - BELOW THE [facility] SKIN IN l THE Out MORNING ent Clinics HydrALAZINE HydrALAZINE Yes Franki TAKE [address] [facility] [address] HCl HCl Jas TABLET BY Lukes - MOUTH Memoria THREE l TIMES A Out DAY ent Clinics Vital Signs Vital Name Observation Time Observation Value Comments Source Heart rate 2020-01-01 08:41:00 60 /min [facility] Respiratory rate 2020-01-01 08:41:00 18 /min [facility] Oxygen saturation in 2020-01-01 08:41:00 100 /min [facility] Arterial blood by Medical Ce nter Pulse oximetry Systolic blood 2020-01-01 08:32:00 162 mm[Hg] [facility] Diastolic blood 2020-01-01 08:32:00 73 mm[Hg] [facility] Body temperature 2020-01-01 07:41:00 36.56 Deanne [facility] Body weight 2019-12-30 04:28:00 78.2 kg [facility] BMI 2019-12-30 04:28:00 27.00 kg/m2 [facility] Body height 2019-12-25 21:05:00 170.2 cm [facility] Procedures Procedure Date / Time Performed Performing Clinician [facility] e REPORT OF PROCEDURE - 2020-01-05 08:40:02 Provider, Default [facility] ENDOSCOPY SCAN [facility] RHYTHM STRIP - SCAN 2020-01-05 08:31:43 Provider, Default [facility] RHYTHM STRIP - SCAN 2020-01-05 08:31:42 Provider, Default [facility] RHYTHM STRIP - SCAN 2020-01-05 08:31:40 Provider, Default [facility] CARDIAC CATH REPORT - 2020-01-05 08:31:15 Provider, [facility] CARDIAC CATH REPORT - 2020-01-05 08:31:13 Provider, [facility] POCT-GLUCOSE METER 2020-01-01 06:33:00 Pat Mohamud [facility] COMPREHENSIVE METABOLIC 2020-01-01 05:37:00 Lily Echavarria [facility] CBC W/PLT COUNT & AUTO 2020-01-01 05:37:00 Lily Echavarria [facility] POCT-GLUCOSE METER 2019-12-31 20:50:00 Cade [facility] POCT-GLUCOSE METER 2019-12-31 18:00:00 Cade Pat [facility] POCT-GLUCOSE METER 2019-12-31 11:42:[address] [facility] POCT-GLUCOSE METER 2019-12-31 06:29:00 Cade [facility] COMPREHENSIVE METABOLIC 2019-12-31 06:05:00 [facility] 2019-12-31 06:05:00 Cade Pat [facility] CBC W/PLT COUNT & AUTO 2019-12-31 06:05:00 Lily Echavarria [facility] POCT-GLUCOSE METER 2019-12-30 20:13:00 Cade Pat [facility] POCT-GLUCOSE METER 2019-12-30 16:26:00 Cade Pat [facility] SURGICALLY OBTAINED 2019-12-30 13:59:46 [facility] - CULTURE + GRAM STAIN Medical [facility] ter ANAEROBIC CULTURE 2019-12-30 13:59:46 Tala Santacruz [facility] SURGICALLY OBTAINED 2019-12-30 13:54:56 Tala [facility] - CULTURE + GRAM STAIN Medical Matthew ter ANAEROBIC CULTURE 2019-12-30 13:54:56 [facility] T[facility] 2019-12-30 13:38:00 [facility],BONE FOOT 2019-12-30 13:11:00 Neeta [facility] POCT-GLUCOSE METER 2019-12-30 11:39:00 Cade Pat [facility] POCT-GLUCOSE METER 2019-12-30 05:39:00 [facility] SARS-COV2/RT-PCR ([facility] & 2019-12-30 05:11:00 Evens Mohamudruel Gonzalez [facility] - REF LABS) Medical [facility] METABOLIC 2019-12-30 05:09:00 [facility] CBC W/PLT COUNT & AUTO 2019-12-30 05:09:00 [facility] POCT-GLUCOSE METER 2019-12-29 21:09:00 Cade [facility] POCT-GLUCOSE METER 2019-12-29 11:10:00 Evens Mohamudruel [facility] HEMODIALYSIS INPATIENT 2019-12-29 08:12:17 Brandie Khan [facility] POCT-GLUCOSE METER 2019-12-29 06:10:00 [facility]ens [facility]ru[facility] 2019-12-29 05:50:00 [facility] CBC W/PLT COUNT & AUTO 2019-12-29 05:50:00 [facility] POCT-GLUCOSE METER 2019-12-28 20:37:[address] [facility] POCT-GLUCOSE METER 2019-12-28 17:38:00 Evens Moh[facility]udruel [facility] POCT-GLUCOSE METER 2019-12-28 13:12:00 [facility]ens [facility]ruel [facility] POCT-GLUCOSE METER 2019-12-28 05:43:[address] [facility] METABOLIC 2019-12-28 04:41:00 [facility] CBC W/PLT COUNT & AUTO 2019-12-28 04:41:00 [facility] ABD AO & LOWER EXT 2019-12-28 02:30:00 Sakina Tamayo [facility] - ANGIOS/ POSS [facility] POCT-GLUCOSE METER 2019-12-27 20:32:00 Pat Mohamud [facility] MR LOWER EXTREMITY 2019-12-27 16:30:00 Lily Echavarria [facility] - WITHOUT IV CONTRAST LEFT Medical Center POCT-GLUCOSE METER 2019-12-27 14:06:00 [facility] WOUND CULTURE + GRAM 2019-12-27 12:02:00 Annia Delgado [facility] I [facility] - STAIN [facility] POCT-GLUCOSE METER 2019-12-27 06:44:00 [facility] POCT-GLUCOSE METER 2019-12-27 05:49:00 [facility] COMPREHENSIVE METABOLIC 2019-12-27 05:05:00 Lily Echavarria [facility] CBC W/PLT COUNT & AUTO 2019-12-27 05:05:00 Lily Echavarria [facility] HEMODIALYSIS INPATIENT 2019-12-27 00:31:18 Brandie Khan [facility] POCT-GLUCOSE METER 2019-12-26 20:51:00 Pat Mohamud [facility] TRANSFUSION SERVICE 2019-12-26 18:02:44 Rocco Sepulveda [facility] REPORT - SCAN Scanning [facility] POCT-GLUCOSE METER 2019-12-26 16:42:00 [facility] CT/CTA AAA AND RUNOFF 2019-12-26 15:27:00 Sakina Tamayo [facility] POCT-GLUCOSE METER 2019-12-26 11:59:00 [facility]ud [facility] POCT-GLUCOSE METER 2019-12-26 06:09:00 [facility]ud [facility] COMPREHENSIVE METABOLIC 2019-12-26 04:36:00 JerichoLily [facility] CBC W/PLT COUNT & AUTO 2019-12-26 04:36:00 JerichoLily [facility] PREPARE LEUKO-REDUCED RBC 2019-12-25 23:54:00 Brandie Khan [facility] POCT-GLUCOSE METER 2019-12-25 20:51:00 Pat Mohamud [facility] TRANSFUSION SERVICE 2019-12-25 18:04:44 Rocco Sepulveda [facility] REPORT - SCAN Scanning [facility] POCT-GLUCOSE METER 2019-12-25 17:01:00 Pat Mohamud [facility] POCT-GLUCOSE METER 2019-12-25 11:25:00 Pat Mohamud [facility] COMPREHENSIVE METABOLIC 2019-12-25 05:59:00 Lily Echavarria [facility] CBC W/PLT COUNT & AUTO 2019-12-25 05:59:00 JerichoLily [facility] POCT-GLUCOSE METER 2019-12-25 05:58:00 [facility] TRANSFUSE LEUKO-REDUCED 2019-12-24 19:06:17 Brandie Khan [facility] RED BLOOD CELLS [facility] POCT-GLUCOSE METER 2019-12-24 16:15:00 Pat Mohamud [facility] ABORH, MANUAL 2019-12-24 08:25:00 Jovita Griffith [facility] POCT-GLUCOSE METER 2019-12-24 06:11:00 Pat Mohamud [facility] TYPE AND SCREEN, 2019-12-24 06:08:00 Brandie Khan [facility] es - AUTOMATED [facility] COMPREHENSIVE METABOLIC 2019-12-24 05:51:00 JerichoLily [facility] CBC W/PLT COUNT & AUTO 2019-12-24 05:51:00 JerichoLily [facility] POCT-GLUCOSE METER 2019-12-23 21:23:00 Pat [facility]ud [facility] POCT-GLUCOSE METER 2019-12-23 16:42:00 [facility] MR LOWER EXTREMITY JOINT 2019-12-23 15:34:00 NeetaTala hy [facility] - ONLY WITHOUT IV CONTRAST Medical [place] LEFT MR BRAIN WITHOUT IV 2019-12-23 15:34:00 Lily Echavarria [facility] CONTRAST [facility] POCT-GLUCOSE METER 2019-12-23 11:16:00 Pat Mohamud [facility] ARTERIAL DOPPLER LEGS 2019-12-23 09:38:00 Isma Santacruzine Thy [facility] BILATERAL [facility] AMMONIA 2019-12-23 04:05:00 CarrascoMariela taylorisal [facility] COMPREHENSIVE METABOLIC 2019-12-23 04:00:00 StanfordLily [facility] CBC W/PLT COUNT & AUTO 2019-12-23 04:00:00 StanfordLily [facility] SARS-COV2/RT-PCR ([facility] & 2019-12-23 03:59:00 Pat Mohamud [facility] - REF LABS) [facility] POCT-GLUCOSE METER 2019-12-22 20:34:00 Pat Mohamud [facility] POCT-GLUCOSE METER 2019-12-22 16:43:00 Pat Mohamud [facility] POCT-GLUCOSE METER 2019-12-22 11:31:00 Pat Mohamud [facility] POCT-GLUCOSE METER 2019-12-22 06:30:00 Pat Mohamud [facility] COMPREHENSIVE METABOLIC 2019-12-22 05:14:00 StanfordLily [facility] CBC W/PLT COUNT & AUTO 2019-12-22 05:14:[address] [facility] POCT-GLUCOSE METER 2019-12-21 20:26:00 Pat Mohamud [facility] POCT-GLUCOSE METER 2019-12-21 17:22:00 [facility] POCT-GLUCOSE METER 2019-12-21 12:35:00 [facility] 2019-12-21 07:20:00 Cade [facility] POCT-GLUCOSE METER 2019-12-21 05:52:00 Cade [facility] C-REACTIVE PROTEIN 2019-12-21 04:39:00 Annia Delgado [facility] COMPREHENSIVE METABOLIC 2019-12-21 04:39:00 [facility] CBC W/PLT COUNT & AUTO 2019-12-21 04:39:00 [facility] US ABDOMEN COMPLETE 2019-12-20 21:17:00 April [facility] POCT-GLUCOSE METER 2019-12-20 20:23:00 Cade [facility] POCT-GLUCOSE METER 2019-12-20 17:31:00 Cade [facility] CT BRAIN WITHOUT IV 2019-12-20 16:04:00 [facility] AMMONIA 2019-12-20 14:41:00 [facility] BLOOD GAS, ARTERIAL 2019-12-20 14:28:00 [facility] XR FOOT 2 VIEWS RIGHT 2019-12-20 11:55:00 Annia Delgado [facility] POCT-GLUCOSE METER 2019-12-20 11:28:00 Pat Mohamud [facility] POCT-GLUCOSE METER 2019-12-20 06:20:00 Cade [facility] OCCULT BLOOD, STOOL 2019-12-20 06:19:00 April [facility] PT/APTT 2019-12-20 05:06:00 April [facility] FIBRINOGEN 2019-12-20 05:06:00 April [facility] D-DIMER 2019-12-20 05:06:00 April [place] Carrillo [facility] IRON, TIBC, % SAT. 2019-12-20 05:06:00 Sakina Chen [facility] (WITHOUT FERRITIN) [facility] VITAMIN B12 AND FOLATE 2019-12-20 05:06:00 April [place] Carrillo [facility] RETICULOCYTE COUNT 2019-12-20 05:06:00 April [facility] HAPTOGLOBIN 2019-12-20 05:06:00 April [place] Carrillo [facility] TSH/FREE T4 IF INDICATED 2019-12-20 05:06:00 April Sakina Iqba l [facility] FERRITIN 2019-12-20 05:06:00 April [facility] Carrillo [facility] ANTI-NUCLEAR ANTIBODY 2019-12-20 05:06:00 Sakina Chen [facility] (ROGER) [facility] KAPPA / LAMBDA LIGHT 2019-12-20 05:06:[address] [facility] PROTEIN ELECTROPHORESIS, 2019-12-20 05:06:00 April Sakina Iqba [facility] PERIPHERAL BLOOD SMEAR - 2019-12-20 05:06:00 Sakina Chenba [facility] - PATHOLOGIST REVIEW [facility] COMPREHENSIVE METABOLIC 2019-12-20 05:06:00 Marcial Chapa [facility] T4, FREE 2019-12-20 05:06:00 April [place] Carrillo [facility] ROGER TITER AND PATTERN 2019-12-20 05:06:00 Sakina Chen [facility] CBC W/PLT COUNT & AUTO 2019-12-20 05:06:00 Marcial Chapa [facility] POCT-GLUCOSE METER 2019-12-19 20:35:00 Pat Mohamud [facility] POCT-GLUCOSE METER 2019-12-19 16:06:00 Pat Mohamud [facility] HEMODIALYSIS INPATIENT 2019-12-19 16:02:09 Sharri Fernando [facility] BASIC METABOLIC PANEL (7) 2019-12-19 05:35:00 Marcial Chapa [facility] LACTATE DEHYDROGENASE 2019-12-19 05:35:00 Sakina Chen [facility] (LDH) [facility] CBC W/PLT COUNT & AUTO 2019-12-19 05:35:00 Marcial Chapa [facility] POCT-GLUCOSE METER 2019-12-19 05:24:00 [facility] POCT-GLUCOSE METER 2019-12-18 21:35:00 Pat Mohamud [facility] POCT-GLUCOSE METER 2019-12-18 16:05:00 Pat Mohamud [facility] POCT-GLUCOSE METER 2019-12-18 07:45:00 Pat Mohamud [facility] POCT-GLUCOSE METER 2019-12-18 06:14:00 Cade [facility] POCT-GLUCOSE METER 2019-12-17 21:44:00 Pat Mohamud [facility] POCT-GLUCOSE METER 2019-12-17 17:52:00 Cade [facility] POCT-GLUCOSE METER 2019-12-17 12:22:00 [facility] 2019-12-17 10:33:08 Brandie Khan [facility] POCT-GLUCOSE METER 2019-12-17 06:18:00 [facility] CBC W/PLT COUNT & AUTO 2019-12-17 04:14:00 Marcial Chapa [facility] COMPREHENSIVE METABOLIC 2019-12-17 04:13:00 Marcial Chapa [facility] POCT-GLUCOSE METER 2019-12-16 20:55:00 [facility]SE METER 2019-12-16 18:24:00 Pat Mohamud [facility] HEPATITIS B SURFACE 2019-12-16 16:02:00 [facility] ANTIBODY [facility] HEPATITIS B SURFACE 2019-12-16 16:02:00 [facility] ANTIGEN [facility] HEPATITIS C ANTIBODY 2019-12-16 16:02:00 [facility] HEPATITIS B CORE 2019-12-16 16:02:00 Bill [facility] es - ANTIBODY, TOTAL [facility] POCT-GLUCOSE METER 2019-12-16 14:47:00 [facility] 2019-12-16 14:26:00 Sharri Fernando [facility] CATHETER [facility] HEMODIALYSIS INPATIENT 2019-12-16 12:37:39 Bill [facility] POCT-GLUCOSE METER 2019-12-16 11:01:00 [facility] CHEST 1 VIEW 2019-12-16 05:55:00 Marcial Chapa [facility] PORTABLE/BEDSIDE Medical Center POCT-GLUCOSE METER 2019-12-16 05:51:00 Pat Mohamud [facility] BASIC METABOLIC PANEL (7) 2019-12-16 04:08:00 Marcial Chapa [facility] PROTHROMBIN TIME/INR 2019-12-16 04:08:00 Marcial Chapa [facility] CBC W/PLT COUNT & AUTO 2019-12-16 04:08:00 Marcail Chapa [facility] SARS-COV2/RT-PCR ([facility] & 2019-12-16 01:45:[address] [facility] - REF LABS) Medical Center Plan of Care Planned Activity Planned Date Details Comments Source Future Scheduled 2020-12-21 [facility] examination Medical Center (regime/therapy) [code = 478314075] Future Scheduled 2020-12-[address] [facility] - Test 00:00:00 malignant [facility] colon (procedure) [code = 427671813] Future Scheduled 2019-11-[address] [facility] - Test 00:00:00 (#1) [code = Medical Center INFLUENZA VACCINE (#1)] Future Scheduled 2017-08-[address] [facility] [address] [facility] - Test 00:00:00 measurement Medical Center (procedure) [code = 01335935] Future Scheduled [address] [facility] - Test 00:00:00 (procedure) [code = Medical Center 20191248] Future Scheduled [address] [facility] - Test 00:00:00 malignant neoplasm of [facility] cervix (procedure) [code = 657253531] Future Scheduled 1965 DIABETIC EYE EXAM [facility] - Test 00:00:00 [code = DIABETIC EYE Medical Center EXAM] Future Scheduled 1965 Urine screening for [facility] - Test 00:00:00 protein (procedure) [facility] [code = 770886185] Future Scheduled [address] [facility] - Test 00:00:00 malignant neoplasm of [facility] breast (procedure) [code = 850454527] Encounters Start End Encounter Admission Attending Care Care Encounter Source Date/Time Date/Time Type Type Clinicians Facility Department ID 2018-11-17 2018-11-17 [facility] [id number] 11:30:00 11:30:00 [facility] Medicine Outpati ent Clinics 2018-10-06 2018-10-06 [facility] [id number] 16:14:00 16:14:00 [facility] Medicine Outpati ent Clinics 2018-09-28 2018-09-28 [facility] [id number] 10:30:00 10:30:00 [facility] Results Test Description Test Time Test Comments Results Result Comments Source ANAEROBIC CULTURE 2020-01-04 10:26:00 Test Item Value Reference Range Interpretation Comme nts CULTURE (BEAKER) (test code = 1095) No anaerobes isolated Tissue [id number] 10:21:00 Test Item Value Reference Range Interpretation Comments Case Report (test code Surgical Pathology = 104) Report Case: [id number] Authorizing Provider: Tala Santacruz DPM Collected: 12/30/2019 01:38 PM Ordering Location: [address] Med/Surg Received: 12/31/2019 06:52 AM Pathologist: Jovita Griffith MD Specimens: A) - Soft Tissue, Other, left 5th proximal phalanx B) - Metatarsal, Left, left 5th metatarsal DIAGNOSIS (test code = [id number] 3220) FuZzEwMzNcZnRuYmpcdWMx SPrtckZaQYkpu7OtK4VlAq AwMFxhbnNpXGRlZmxhbmcx LILdYID8owLnOIHhXLpeDH ThKYkvLu0jkUFqnIxnJsLm GLVvu1mypbMZxnbriDq7i5 itPFFkGeR5aAEdGBosF5ai oxAtkCUjEPAfDOd5xN78BZ LbsA7bxCJcTPwmbmDnCeB4 WFftDLGrVvD9XOBpnLBdYN SfM7jwORNkFWopECQyVWrd iDFtOHE0aIyum0K2uMNyrC WriAfeAaQaDuIxQASZn2Df KWj0vOgiZ5OfLMUzZdI1zV QgUGFyYWdyYXBoIEZvbnQ7 jH30CJlpauR1xCXaf9Ojf4 3eh240iI7mtJRhSCW3WZWt ONLifAMzPHQhOQB1DVDnnI VcC5h5YgFkjBKuH0E0NiLf nQLhM9D4QnOtzINnM1B6Tj CbfWNeFDFazJDbFu4oeGFe iBSmwm6vux80AWY4q8TsbF hmKRI2VBM9HpUdCq3cqRUg MXNdKK4zKcOkmRAbHZVpwo 07jJigPAwlgoRogK4rFrGx SLPefZHgOVEmHU6rrJQdMM RldV2bdtyyNHRqBpKpnovo TIDeiNbabaDoMb0nlEiiEP J0HBzwJ0paiX9gQaG3SNot W8rlvU8cXNk3EQqezLA0PE KrvM5wMA0alzfqx5ddBmEm IM1imfvdk4suYsOvNB3ydb q7n4kfAnImSE8ubpjmh6dq NzIwXGhlYWRlcnkwXGZvb3 DzktdaBFVro7JtP8FwyYam C91eqMmyJ80zRVAcuAdwpZ 1viOvpcK0cLhJjOzEcDEus bFxwbGFpblxmMVxmczIwXG hpykndQKRtXEccA9uoSpPn AMKssRjlXLdxs1JoOOPeYF TkPlTjHA3mJd4YQBywPMYE XTSRETWIJTUZRa0UCK6TDD WMIXEEVF8UYMJAHP7IE3d6 CMQyxxWmLJCzHHLJPW9fQ5 iJZFJRWxULZhtFLH6YJWUH UlRJTEFHRSBXSVRIIFNVUl DQFS1PTE2LZYWLDHEVTHPW RCBDSFJPTklDIElORkxBTU 1BVElPTlxwYXJccGFyIEIu IEJPTkUsIExFRlQgRklGVE ggTUVUQVRBUlNBTCwgQklP UFNZOlxwYXIgICAgLSBBQ1 FZZLSNU2EUK59RCDjSTXuF IFxwYXIgICAgLSBTRVBBUk OANULLGiGISYGTZMXeY6Py TgjEUn5UN14OFGRQJYKIHC FGD8DSTVGDTDIOUXZIV3UH K6SvWY8BG0YXD0nMJHELMG BHUkFOVUxBVElPTiBUSVNT THKcQj7QVEMHQG3DPMBycu 32KBV6WcHmx3C1ZCF6HMXx WJWiq8oiDNFqbXBaMfUbXo NcZnRuYmpcdWMxXGRlZmYw o7qcz994yBHte3bgQPVbPr E2vEZrIKTeqZOsE379PZRr KEuxt0isp3XqLRTxyRCwc1 V2BMKNjjuujHd0sJwxN24j v3D5ZsklG5qlJSLqVMFtM6 FbHV9dYSYyKqy4FMF8AWO8 EUAfNNDfO1JzJJ2kAVHbpI BxSGt9q9xmqVniQAYkWRP2 y9arOVadgcZfMP7xws8wmV j8w5mjrxYaDJIxXESrcEFK EVCtR8DbyMpjQk8xwFn8kW yhIeefFUQ5Dpc1DQ8fed03 ylo5yKkeUPOzfdheQjW7YT ckAAUcjgugDEy2BWehCGXn yEL7PKSxiGJyY6HbOGTrAE 6kqmi8IFW5MHfgNORmFlM6 NDBcaGVhZGVyeTcyMFxmb2 90KGG9HcBqUK7dA3Guc1Q9 bU4raLYeINDixEUtJcSkYJ Xbwi2lmHFbDEwmg3CgZHV6 mrK4uINneMQoBHQwPsP5LR dcKC1woo72WRMwVZB6pl4z bGNccGdicmRyaGVhZFxwZ2 YlZZOue008GWIhH7GrXKVc n4G9yoRsSgDqQGEfjON9zg S4SZNnPY5wjzurk0miEKbq WUsyPHFmhuK1loG8FPYehV ZbA3WtdI1jKSYfZP6corsz h9ugXUC5PDweJRZfCNE4Rn JnEXLft4Inice0LsEqs4Tw qHMkFXurK78yw622WPHugt TuF2fouWXcwwhplRCgnkml TTsxfoF8CROdNJxuybyyVL FuXXycS9jsFvLyHTTvhSas ACuno5IrZYAlVWIgTgHpjI XjDWLrAca6NNUqzKBcVFDo IwUcU5ywddalVcRHZFSnt3 buS2amdICQmJPvC6RtSGlj qmVnZXmuMBjeJKH7MBM6Cg 59MtU0ONGvxn60 CPT Code(s) (test code s2qkgGIySUJwnVRuNjYgJE = 4130) BaTSSqi3khHRKqsKBmCmEf MzNcZnRuYmpcdWMxXGRlZm Enk9xeg189qNSqj2bgVTId AeM5yRFtTGGrkSTxK785c5 xvf1wktfZyaQU8FCBnVPX4 XQcntjTvyzA5JPmvpGRfMo Y8QBjgznQyWIzqsrOsxtGo Smv8HLDyE884UKT0vYaxd1 qfGOJ3HPGiPOOoLvEvYn2c yOWlL245YZIuFBRVTVSsvT z6MBRsdlMgxvRpeRKQq865 V345j3roLIEhfxIdbSfIvv wqe7hpD264PTUovEAylfRr ZfSqBSTncHWnsCZ5MGMkFA 2khxcwKxSmVH4hhyzcIeSv BT8bhvr8AyNaTK4amczmGr WaDXyjYBPabcuiRLIqd6Kv bdifSY9wU5Jsc9L7lY1vfV YdCOBggDJaJgJoZQEgcz0g uWIaBWunl5KsEEU6tsD0vE AhjAXxNGTlTA71Lrphn6Nr JebgRLW3BCZoxsTal0Xdv8 dhApHoczRkS4cqX2CsCLFl AZKuLOTbMjKebbJna8Wlh1 EufLIflBw2o1haKJJjSCDs nUkkh1cfOVG8WNVjI8H9dF Frg4goQWtePASpoJW5eukq YOpcWCHkopH3ftcqTVxbTI FhqFD5nedfWHdvIYQyZuN5 idchNKwgXIUoRCS2IOinx6 73IPM8TUwqXmejYDxlKNNb bmNvbnRccGduZGVjXHBsYW luXHBsYWluXGYwXGZzMjRc lAgacQfoaT3fBlUxSiWpKM wvQQ3hAGVlC6xoeCYdDJKm ZFUuG9lfMqHcnQ6duKlqJP yfamGhQP3RT1M9AVAjdpE5 KNYpRkH6ZlutSMGxCAxpBR EgeDJccGFyfQ== CLINICAL HISTORY (test c5nobPXsPYKtuPIySaGnEQ code = 335) IkOGUhz0qhTLZosBJpPsTq MzNcZnRuYmpcdWMxXGRlZm Xrl1pwl193rQCns9awQCMh JoI1gYEvKETvrHSrF823t7 yms9tozwBheUL7MXGaGWN7 POzqqoUskjA8VGzwoLLlNm U1SZlngwCjUPkztaDvkpEa Qip2QYSvV541LDQ2hApnh5 dvDVR5COPbWQCwXoNuNc2z lPDaA526UJYiTJPTZOXsjD h5FBCielQmoiWnsZLCr549 C843d4mgBWAzgyJokIeAug kdg8nzA913EUBhwPHyktAq DyWjFGMoxCJhpMG4ECDdOX 6ilwtpAqKrNL0hvnyvLtCt QF0cpxp4NqXmZI6robmcMw RpJOccDUBpizfiVDRtx3Fl groqEO7bT6Ixt0O3vR0koU ReNJTlgMDsNsBqVXLdwv5j nHOtWAfki1ExAME4ioC9bV GtzVCtASQbGX34Xkczp4Fs DwxlGNP3WYNgukFzt4Unl6 btZcHhopKyE8koD6NeGHPa HJHbWRFrNdKeqoRay4Nvf6 JqhJSomIj3y0zjOHWwWGIw iKlew7zoRTR1UPXbF9F5uL Uja5ttDQrcEEIfwXP3rtes DQpuQAEfytD0zjqeQLbxOW LloJW3nmgyVXwhSTQfPkD7 xtmhETxrGRVsDAR2AZuqo6 51PHN2UZtfXoriRFquDJAw bmNvbnRccGduZGVjXHBsYW luXHBsYWluXGYwXGZzMjRc hRevxVqpjI1nNoMyApEpBF hdUM3lBRPdX5fuvAVsNWMy HWTnA5vrIhVzoD9ljKcjBV zucmGhPD5qdUJsbNztgEt7 oDZhh6JgtSXdbLX9cZuqbW M9OQNvtuQuxImybRoeOIUj k7GnWxwkWDMbjsXsOXUuRR RccGFyfQ== SPECIMEN SOURCE (test l9zimCOsQSHiwQTnPeNpMA code = 3377) PvZVLzo3ldLRWqqLMpZyVj MzNcZnRuYmpcdWMxXGRlZm Okt8xqd896kKJue6xfJVRd DzI7iFMmSSQwzMCnM484a2 ezx5hyvjVmdFA7HVLdLQX2 KAtnyrLsyuR0ZLlmfJOjNm E5WIpdqwRtREcqjaIiriHn Tlr1HSEvE795GLU6fIypd6 bkVIA8SCMuKZHeQsRnTb2j oXMmI290AQKfATDVYIHxuX t4UQXzfsDbreAfaRRPz149 T179b2mnOXQijzOqtExLlo llk3dkV045LBOhxAVekqTc CeIkDOAflTItkJH1KUMpQO 5qmiyaCrRuPJ2dtdviIbSn CN5vdlt9EzLrSB5tbrhsLu UuQLxpBJMdsjfqNEZlg4Qh iyjqPA6bM1Jnr0B2gJ2fpC FeJCYifZFqQkItABPvva3l pPNvFTkdk8NtCAN8xeT1lD LerGOoVWGrMC99Bawlh7Bp ZcejIQL2NUInffPlg8Upn3 zgSbMtrzUcB4qoI2ZkRPZy TTGfZVWfQyAqcuDow5Lmo7 LrqRIokHo5l8ndPFZeXDXh kHbqt0azMKD2TLWeK7V1yP Pik9qnXNtkEYMnyVJ2eneh UZiwCENbfkR6zswnKJqkTF GssPW2kgviHWwjGRBrOzU6 fxdaJVxaQXVsOLG7KSwem4 37FEC7LSitAugsKWwkXOPt bmNvbnRccGduZGVjXHBsYW luXHBsYWluXGYwXGZzMjRc qHyzySbbzX2gJuQbKjBqSC cxEF8lMYXiK7isvVDuGOTe JTQfC8nsSeIllN8tcWipZI xmczIwIEEuIExlZnQgNXRo RTBoz9spiWBiLAQeGXortr hjDPBqXGpsCyLbGYNjJE7a sXL7NMSgJIgbDXNkgf9= GROSS DESCRIPTION (test o6algADtGNVvqJCbJfYvRG code = 3366) OxQHLuf3bkMTVoaKDdAbEg MzNcZnRuYmpcdWMxXGRlZm Qcs6ddp620oDYmb1soRQIh OpK3jWQgLCDsjVGcF028NB ZpYWful9pva9WtXSEmiQTo h7O1LDKHlbccuKy4yXfkO6 4ru0E6IvaiM9woPZTzPLJa G9YrCZ6uGPBpEqj8HDX0DF W8YKVgECOjF0OmBR9vNRMm jBJjCOk4u4khvMdvAQArPS Z7m7yaBYpixfJvZM6vft0n uJm3u3gruqSbYUKsQFZvcL MHBCMnD3CatKpaZk3uaHd7 jOofUudkKFV7Xkv7XW3wke 67eaq8lRdtYTRtszebVrF0 FQowKTIynrgeVXh4EUlzOO JnbDcyMFxtYXJncjcyMFxt YXJndDcyMFxtYXJnYjcyMF hmWSNoOQK6HZqka436TVX1 JEqph7mrv1pjpXXjKbt7EA JbIaBlYmpbYStdu2Wvc7ai VCVkyq1cWEN7iPIyhHspa7 T7nBIrSQEuqPEnvtTwBOIq MrU5FEfpRX7scd62TAZlOW L6bw3kxBFjrWohriDweRVo KDsbU8RoAOFmk526LLGwC2 QmKUFbg1G5feEsDsSqHHLd iLT5jqU2QCCeSHh0cSLxqe W3vqYzxEGoA6toyT23MyFv vBAoE3CkpA48LzHmaVDqH3 FzcC44FjLraDIhY3MkzV30 EsXihRZgUXYfmAJvGq7vfX HozRFqa2JiyJIqAIkeC97v f562UQWtulTiS1anjJRwls xcrIIcikhiMUpsdtJ9GSNd XHBsYWluXGYwXGZzMjBcbG FuZzEwMzNcaGljaFxmMFxk StOtMTMuUSfpB7loSwStXt XeLISBeJGpuP5hxtPLXTtm EWUqN1UwzyQkNIcdMYOqlO O2mTAiNQadFlGzEFZxk9d5 gAH0zCKonQR5dMMkzHfuAD 5qaQJkHJ1vEI5mWTrmSIzw xrXpp4EcHO10rAXwlvAnso QgZGVzaWduYXRlZCBhcyAi d19hiGI6gWVvhNWeCI00oQ RtBvutR68vh0pteLTrd4Qk c2lwsJFjeZHlzX27UGUqvl WqByVjL13ageUoGW7gXPU6 cmluZyAwLjcgeCAwLjMgeC SyXeZpB52fDPMiFTXdmBRq hG9zahIpyxZeqWObiWM6IH QrQK56wORlzWxmqN25qqHY URTsjvQjpD67dvWhOJQayJ Uhy6r8tYjaoj5auIFcPDOy aqNKoCApvY3ipqSNOYuuCO ChE9BaxoTbCGdfAFZojIS3 uCPjPMyoPgFeVHDkq8o2pI H2fVMkaDZ3bAQjuHgiEJ6f zQQcSQ9fCV5cCSrmLKwnny Jyg1IwBN90nEWeilAbnxUo ZGVzaWduYXRlZCBhcyAibW J3CXSknaKwbTAdIFS9Timy B16ts1xnbBTct9RaKy94rb ErDQOjQqOsf58kfXezl2Qa UCHeAGMmc45oJBXoGBrsWK 75mpPaIWDifYCwhtlsZr4o WNumBN75NZylHS53YUIhAP uuMSTfS9CmG1Z7AN1wrFzm IHNwZWNpbWVuIGlzIGVudG haRSg0RGlfsQLmuayxCJda czIwXGxhbmcxMDMzXGhpY2 ikRjTfYGCzjElnRFxss9Rv DHVlZZLiSxZeInAmEG2cHK cxhS3dDIXlMKffw90cqOZq n09bIZJgIDqiPPJaCYLbNf BcbGFuZzEwMzNcaGljaFxm WPyjTjPrMJKiNXtpV7vxMq BcZnMyMCAgTUcvZXdccGFy fQ== MICROSCOPIC DESCRIPTION j9lflAAcCUNrpDNbAjOkRT (test code = 3371) GsCRFnb4wiWSNdiJHvRnSo MzNcZnRuYmpcdWMxXGRlZm Ztt5cef627zDSkx5wrTLEz KsQ6tGVaEQVnmARqX470j3 zzl5mkamHvvVC9ZDVvEFJ5 GPmyqmZiidG8ZYangAObXx F3OClqwvFcVKddirBoqmUu Bvu9DNNiK892VUB6qZpee4 slTUX5RJYjSVGfHjJsOs5u qIEsE856MUVgQHNGZUOjaR b5IBMhcxMcqqCmfYZAr615 E537o5pgHVQdbpVobRkYms dzu1rhZ265DCEqkYOwyhQn RmMxYIHdwFNmfEP8OVPyUQ 6hrhdjPuWgUF5nkiolEwCt FP6dqju9ZiVyLX5egqbkIf YwCCjaJKHilhuiSNWbo2Bd wuvqOM7sH6Rhb6G1qO9hrD XcHMUvzKLbEqGdRKMvsg1q vAAxZRklk0BwDKL8vbA5oM VviCPxXKRnXT48Vinvb5Ut FciaCEF6UDYsuvOkc3Hxu7 ynGpTjarSwW4zsV9JoHWIh ZKEdSQTrDwMhbqOcv2Gvc8 EccWLbtJr7a7mxKVQyEFOi sIwpi1izGTV3MTVoK7H2hK Scv3kmOUulSRZunHL9cjtu VGrpIFKnjeD5awwoKSkeNJ RlrXB7soflLXexBDQlSmT3 rtboFObkPGZeYIM5KBkaq3 39WSI9BBemEjrtZCewEGPg bmNvbnRccGduZGVjXHBsYW luXHBsYWluXGYwXGZzMjRc eBttwPawdD6sJdKfTiUzUL wkNI1eVYOqD4jsgJVkQKDa CCBfV5qlWpMguD7nnZbaQU eebqVnPDEoGx8yJJYlWj0p bWVkLlxwYXJ9 Gross assessment was [facility] at ([facility], Department = 2777) of Pathology, [address] [place] [address], Technical component was [facility] performed at ([facility], = 2778) Department of Pathology, [address] [place] [address], Professional component [facility] was performed at [facility], Department code = 2779) of Pathology, [address] [place] [address], [facility] [id number] 10:21:00Surgical Pathology Report Case: [id number] Authorizing Provider: Tala Santacruz DPM Collected: 12/30/2019 01:38 PM Ordering Location: [address] Med/Surg Received: 12/31/2019 06:52 AM Pathologist: [...] TISSUE FORMATION Signing Pathologist Direct Phone Line: [phone] signed by Jovita Griffith MD on 01/04/2020 at 10:21 AMMG/[id number] of left 5th metatarsal, ulcer of bilateral [...] entirely B1 and into decal solution. MG/Veronica-B. Performed.[facility], Department of Pathology, [address] [place] [address], [facility], Department of Pathology, [address] [place] [address], [facility], Department of Pathology, [address] [place], [place] [address], FVCNEIMWT [id number] 10:47:00 Test Item Value Reference Interpretation Comments [...] negative Staphylococcus SURGICALLY OBTAINED CULTURE + GRAM [id number] 08:31:00 Test Item Value Reference Range Interpretation Comments CULTURE (BEAKER) (test code No growth = 1095) GRAM STAIN RESULT (BEAKER) <1+ WBCs (test code = 1123) GRAM STAIN RESULT (BEAKER) No organisms seen (test code = 53715) SURGICALLY OBTAINED CULTURE + GRAM [id number] 08:19:00 Test Item Value Reference Interpretation Comments Range CULTURE (BEAKER) STENOTROPHOMONAS A 2+ Sten otrophomonas (test code = 1095) MALTOPHILIA maltophil ia Levofloxacin (test S code = 22) Trimethoprim + S Sulfamethoxazole (test code = 47) GRAM STAIN RESULT <1+ WBCs (BEAKER) (test code = 1123) GRAM STAIN RESULT No organisms seen (BEAKER) (test code = 060820) POC-Glucose [id number] 06:47:00 Test Item Value Reference Range Interpretation Comments POC-Glucose Meter (test 102 mg/dL 70-110 : TE STED AT [facility] code = 1538) [address] [facility] [id number]: Registered Radiologic Technologist/Techni artemio ID = [id number] for Damian [facility] Lab Interpretation (test Normal code = 41567-8) [facility] [id number] 06:47:00 Test Item Value Reference Range Interpretation Comments POC-GLUCOSE METER 102 mg/dL 70-110 : TESTED A T [facility] 1317 (BEAKER) (test code [facility] [address], = 1538) [facility] 77 478: Registered Radiologic Technologist/Techni artemio ID = [id number] for Ashley austinAnne Comprehensive metabolic [id number] 06:34:00 Test Item Value Reference Range Interpretation Comments Protein, Total (test 6.1 6.0- 8.5 gm/dL code = 2885-2) Albumin (test code = 2.3 g/dL 3.5-5 L 04141-4) Alkaline Phosphatase 81 U/L 30-115 (test code = 6768-6) Total Bilirubin (test 0.4 mg/dL 0.1-1.2 code = 1975-2) Sodium (test code = 137 meq/L 586-143 6382-2) Potassium (test code = 3.7 meq/L 3.6-5.5 2823-3) Chloride (test code = 100 meq/L 98-106 2074-0) CO2 (test code = 28 meq/L 20-29 2027-9) BUN (test code = 14 mg/dL 10- 3094-0) Creatinine (test code 2.31 mg/dL 0.5-1.2 H = 2160-0) Glucose (test code = 100 mg/dL 70-110 2345-7) Calcium (test code = 7.5 mg/dL 8.5-10.5 L 94492-0) AST (test code = 15 U/L 5-40 1920-8) ALT (test code = 6 U/L 5-50 1742-6) EGFR (test code = 21 mL/min/1.73 sq [place] [address]-6) NOT ACCURATE CREATININE CLEARANCE IN PREDICTING GLOMERULAR FILTRATION RATE . ESTIMATED GFR I S NOT APPLICABLE FOR DIALYSIS PATIENTS. ZIA (test code = ZIA) Registered Radiologic Technologist ID - ADMIN Lab Interpretation Abnormal (test code = 80654-8) [facility] [id number] 06:34:00 Test Item Value Reference Range Interpretation [...] = 355) BLOOD UREA NITROGEN 14 mg/dL - (BEAKER) (test code = 354) CREATININE (BEAKER) [...] S NOT APPLICABLE FOR DIALYSIS PATIEN TS. Registered Radiologic Technologist ID - ADMINCBC with platelet count + automated [id number] 06:06:00 Test Item Value Reference Range Interpretation [...] K/CU MM L MPV (test code = 56836-9) 10.5 fL 6-11.5 nRBC (test code = [...] 2801) Lab Interpretation (test code = Abnormal 78526-2) [facility]T [facility] & AUTO [id number] 06:06:00 Test Item Value Reference Range Interpretation [...] PERCENT (BEAKER) (test code = 2801) POCT-GLUCOSE [id number] 21:02:00 Test Item Value Reference Range Interpretation Comments POC-GLUCOSE METER 167 mg/dL 70-110 H : TESTED A T [address] (BEAKER) (test code [address], = 1538) [place] [address]: Registered Radiologic Technologist/Techni artemio ID = [id number] for Anne Busby POCT-GLUCOSE [id number] 18:12:00 Test Item Value Reference Range Interpretation Comments POC-GLUCOSE METER 121 mg/dL 70-110 H : TESTED A T [address] (BEAKER) [facility] [address] [facility] = [address] [place] [address]: Registered Radiologic Technologist/Techni artemio ID = [id number] for Cortney Cohen POCT-GLUCOSE [id number] 11:54:00 Test Item Value Reference Range Interpretation Comments POC-GLUCOSE METER 117 mg/dL 70-110 H : TESTED A T [address] (BEAKER) (test code [address], = [address]) [place] [address]: Registered Radiologic Technologist/Techni artemio ID = [id number] for [place] Cortney ayala COMPREHENSIVE METABOLIC [id number] 06:47:00 Test Item Value Reference Range Interpretation [...] S NOT APPLICABLE FOR DIALYSIS PATIEN TS. Registered Radiologic Technologist ID - [id number] 06:42:00 Test Item Value Reference Range Interpretation Comments Magnesium (test code = 1.6 mg/dL 1.5-3 37104-1) ZIA (test code = ZIA) Registered Radiologic Technologist ID - ADMIN Lab Interpretation (test Normal code = 14177-8) [facility] CenterPO[facility] [id number] 06:42:00 Test Item Value Reference Range Interpretation Comments POC-GLUCOSE METER 101 mg/dL 70-110 : TESTED A T [address] (BEAKER) (test code [address], = 1538) [facility] [place] [address]: Registered Radiologic Technologist/Techni artemio ID = [id number] for Anne Busby [id number] 06:42:00 Test Item Value Reference Range Interpretation Comments MAGNESIUM (BEAKER) (test code = 1.6 mg/dL 1.5-3.0 627) Registered Radiologic Technologist ID - ADMINCBC W/PLT COUNT & AUTO [id number] 06:37:00 Test Item Value Reference Range Interpretation [...] PERCENT (BEAKER) (test code = 2801) POCT-GLUCOSE [id number] 20:24:00 Test Item Value Reference Range Interpretation Comments POC-GLUCOSE METER 155 mg/dL 70-110 H : TESTED A T [address] (BEAKER) (test code [facility] [address], = 1538) [facility] [address]: Registered Radiologic Technologist/Techni artemio ID = [id number] for Anne Busby POCT-GLUCOSE [id number] 16:39:00 Test Item Value Reference Range Interpretation Comments POC-GLUCOSE METER 164 mg/dL 70-110 H : Notified RN/MD: TESTED (ROBERT) (test code AT [facility] [address] [facility] = 1538) [place] [facility] [address]: Registered Radiologic Technologist/Techni artemio ID = [id number] for Alondra Kelley SARS-CoV2/RT-PCR (Asymptomatic ONLY)2019-12-30 15:57:00 Test Item Value Reference Range Interpretation Comments SARS-COV2/RT-PCR Negative Not Detected, (test code = Negative, See [address]-5) external report for linked test SARS-COV-2 [facility] PERFORMING LAB (test code = 17181-5) ZIA (test code = Negative result for [...] of the Act. Fact Sheet for Healthcare Providers:https://www.[employer]/sites/default/f loco/product/documents/F act_Sheet_HC_Providers_L yom_VILY-CnS-5.pdf Fact Sheet for Healthcare Patients:https://www.AG[employer]P/sites/default/fi les/product/documents/Fa ct_Sheet_Patients_Lyra_S ARS-CoV-2.pdf Performing Laboratory:[facility] [place] [address] [facility] ([facility])2019-12-30 15:57:00 Test Item Value Reference Range Interpretation Comments SARS-COV2/RT-PCR (test Negative Not Detected, Negative, code = 6405506) See external report for linked test SARS-COV-2 PERFORMING LAB [facility] JANET (test code = 0096185) Negative result for this test determines that [...] 564(g) of the Act.Fact Sheet for Healthcare Providers:https://www.[employer]/sites/default/files/product/documents/Fact_Shee u_DP_Izmkngnyf_Ayfc_AAMS-JjY-6.pdfFact Sheet for Healthcare Patients:https://www.[employer]/sites/default/files/product/ documents/Wilv_Gqzcw_Pcqorhop_Ccvq_NPFQ-HlU-8.pdfPerforming Laboratory:[place] [address], [place] [address]ZXNL-VQRCLQT METER 2019-12-30 11:50:00 Test Item Value Reference Range Interpretation Comments POC-GLUCOSE METER 82 mg/dL 70-110 : Notified RN/MD: TESTED (BEAKER) (test code = AT [facility] [address]) [place] [address]: Registered Radiologic Technologist/Techni artemio ID = [id number] for Alondra Kelley WOUND CULTURE + GRAM [id number] 10:45:00 Test Item Value Reference Interpretation Comments [...] gram negative (BEAKER) (test code rods = 446146) POCT-GLUCOSE [id number] 05:50:00 Test Item Value Reference Range Interpretation Comments POC-GLUCOSE METER 103 mg/dL 70-110 : Notified RN/MD: TESTED (BEAKER) ([facility] [address] = [address]38) [place] [address]: Registered Radiologic Technologist/Techni artemio ID = [id number] for Zonia Healy COMPREHENSIVE METABOLIC [id number] 05:44:00 Test Item Value Reference Range Interpretation [...] S NOT APPLICABLE FOR DIALYSIS PATIEN TS. Registered Radiologic Technologist ID - ADMINCBC W/PLT COUNT & AUTO [id number] 05:29:00 Test Item Value Reference Range Interpretation [...] PERCENT (BEAKER) (test code = 2801) POCT-GLUCOSE [id number] 21:21:00 Test Item Value Reference Range Interpretation Comments POC-GLUCOSE METER 185 mg/dL 70-110 H : Notified RN/MD: TESTED (BEAKER) (test code AT [address] = 1538) [facility] [address]: Registered Radiologic Technologist/Techni artemio ID = [id number] for Zonia Healy POCT-GLUCOSE [id number] 11:21:00 Test Item Value Reference Range Interpretation Comments POC-GLUCOSE METER 143 mg/dL 70-110 H : Notified RN/MD: TESTED (BEAKER) (test code AT [facility] [address] = 1538) [place] [address]: Registered Radiologic Technologist/Techni artemio ID = [id number] for Alondra Kelley COMPREHENSIVE METABOLIC [id number] 06:27:00 Test Item Value Reference Range Interpretation [...] S NOT APPLICABLE FOR DIALYSIS PATIEN TS. Registered Radiologic Technologist ID - ADMINPOCT-GLUCOSE [id number] 06:21:00 Test Item Value Reference Range Interpretation Comments POC-GLUCOSE METER 73 mg/dL 70-110 : Notified RN/MD: TESTED (BEAKER) (test code = AT [address]LS [address]) [place] [address]: Registered Radiologic Technologist/Techni artemio ID = [id number] for Zonia Healy CBC W/PLT COUNT & AUTO [id number] 06:00:00 Test Item Value Reference Range Interpretation [...] PERCENT (BEAKER) (test code = 2801) POCT-GLUCOSE [id number] 20:48:00 Test Item Value Reference Range Interpretation Comments POC-GLUCOSE METER 84 mg/dL 70-110 : Notified RN/MD: TESTED ([facility]) (test code = AT SLS L [address]) [place] [address]: Registered Radiologic Technologist/Techni artemio ID = [id number] for Zonia Healy POCT-GLUCOSE [id number] 17:51:00 Test Item Value Reference Range Interpretation Comments POC-GLUCOSE METER 59 mg/dL 70-110 L : TESTED A T SLSL 1317 ([facility]) (test code = [address] [facility], 153) [place] [address]: Registered Radiologic Technologist/Techni artemio ID = [id number] for Christina r, Berta POCT-GLUCOSE [id number] 13:28:00 Test Item Value Reference Range Interpretation Comments POC-GLUCOSE METER 67 mg/dL 70-110 L : TESTED A T SLSL 1317 ([facility]) (test code = [address] [facility], 153) [place] [address]: Registered Radiologic Technologist/Techni artemio ID = [id number] for Christina r, Berta POCT-GLUCOSE [id number] 06:04:00 Test Item Value Reference Range Interpretation Comments POC-GLUCOSE METER 94 mg/dL 70-110 : TESTED A T SLSL 1317 ([facility]) (test code = [facility] [facility] [facility] [place] [address]: Registered Radiologic Technologist/Techni artemio ID = [id number] for Anahi Sherman COMPREHENSIVE METABOLIC [id number] 05:35:00 Test Item Value Reference Range Interpretation [...] S NOT APPLICABLE FOR DIALYSIS PATIEN TS. Registered Radiologic Technologist ID - ADMINCBC W/PLT COUNT & AUTO [id number] 04:56:00 Test Item Value Reference Range Interpretation [...] PERCENT (BEAKER) (test code = 2801) POCT-GLUCOSE [id number] 20:43:00 Test Item Value Reference Range Interpretation Comments POC-GLUCOSE METER 137 mg/dL 70-110 H : TESTED A T [address] (BEAKER) (test code [address], = 15[address]) [facility] [address]: Registered Radiologic Technologist/Techni artemio ID = [id number] for Math sheyla, Anahi MR, EXTREMITY, LOWER, WITHOUT CONTRAST, [id number] 16:55:00MRI LEFT FOOT.Unlisted Reason for Exam - [...] MDReport Verified Date/Time: 12/27/2019 16:55:07 Reading Location: [facility] Radiology Reading Room MR lower extremity without IV contrast left [id number] 16:55:00Interface, External Ris In - 12/27/2019 4:57 [...] in the first metatarsal remnant. Signed: Lynda [facility] Verified Date/Time: 12/27/2019 16:55:07 Reading Location: [facility] Radiology Reading Room Electronically signed by: Adrienne CHU 12/27/2019 04:55 [facility] [id number] 14:19:00 Test Item Value Reference Range Interpretation Comments POC-GLUCOSE METER 232 mg/dL 70-110 H : TESTED A T [facility] 1317 (BEAKER) (test code [address], = 1538) [facility] [address]: Registered Radiologic Technologist/Techni artemio ID = [id number] for Berta Servin CT, CTA AAA, W/ GÓMEZ.EXT.[id number] 11:38:00Bilateral lower extremities Addendum BeginsREPORT STATUS:A I agree with the nonvascular findings with exceptions and emphasis as below:*Moderate right and small left pleural effusions are partially visualized.*Large volume ascites.*Diffuse anasarca*The reflux of contrast into the hepatic veins is concerning for volume overload. Signed: Molly Linares MDReport Verified Date/Time: 12/27/2019 11:38:28 Reading Location: [facility] Diagnostic Imaging Reading Room - [place] [address] [address] angiography of the abdominal aorta and runoff, 26-Dec-19 INDICATION: This is a 64 year old female with with lower leg penetrating trauma presents for assessment. TECHNIQUE: Spiral acquisition before and during intravenous contrast administration using a Yast multidetector CT scanner. Images were obtained before [...] identified. However, significant calcification identified of the oneida left SFA, for example at image 516, [...] the right popliteal artery is patent, with gykf-pq-sgejtmwx diffuse calcification identified with no obstructive lesion [...] However, in the distal left SFA, the oneida artery substantial calcification identified and the stent [...] atherosclerosis identified. 4. In the right, the oneida right SFA is not filled by contrast [...] dictated regarding the non-vascular findings by the Director Of Group Sales Radiologist. Signed: Shlomo Dockery MDR[facility]outheast [facility] Verified Date/Time: 12/27/2019 07:59:51 Reading Location: [place] [address] [address] Reading Room Protein electrophoresis, serum 2019-12-27 [...] = 2660) ZIA (test code = ZIA) Registered Radiologic Technologist ID - LEONIE Jay Lab Interpretation (test Abnormal code = 04921-5) [facility] CenterPROTEIN ELECTROPHORESIS, [id number] 09:29:00 Test Item Value Reference Range Interpretation [...] chronic inflammatory response. No monoclonal bands detected. [id number] Rocio Galindo MD (BEAKER) (test code = (electronic signature) 2616) PROTEIN TOTAL SERUM, 6.3 gm/dL 6.0-8.3 SPEP (BEAKER) (test code = 2660) Registered Radiologic Technologist ID - LEONIE FCTA AAA and [id number] 07:59:00Interface, External Ris In - 12/27/2019 11:40 AM CDTAddendum BeginsREPORT STATUS:A I agree with the nonvascular findings with exceptions and emphasis as below:*Moderate right andsmall left pleural effusions are partially visualized.*Large volume ascites.*Diffuse anasarca*The reflux of contrast into the hepatic veins is concerning for volume overload. Signed: Molly Linares MDReport Verified Date/Time: 12/27/2019 11:38:28 Reading Location: [facility] Diagnostic Imaging Reading Room - [place] [address] [address] REPORT CT angiography of the [...] to as low as reasonably achievable. IRWIN DINGS: VASCULAR: A central venous catheter is [...] identified. However, significant calcification identified of the oneida left SFA, for example at image 516, [...] the right popliteal artery is patent, with bqki-st-yikznefa diffuse calcification identified with no obstructive lesion [...] However, in the distal left SFA, the oneida artery substantial calcification identified and the stent [...] atherosclerosis identified. 4. In the right, the oneida right SFA is not filled by contrast [...] dictated regarding the non-vascular findings by the Director Of Group Sales Radiologist. Signed: Shlomo Dockery MDReport Verified Date/Time: 12/27/2019 07:59:51 Reading Location: [place] [id number] CT Reading [facility] [id number] 06:56:00 Test Item Value Reference Range Interpretation Comments POC-GLUCOSE METER 39 mg/dL 70-110 LL : Notified RN/MD: TESTED (BEAKER) (test code = AT SLS [address]) [place] [facility] [address]: Registered Radiologic Technologist/Techni artemio ID = [id number] for Anahi Sherman COMPREHENSIVE METABOLIC [id number] 06:15:00 Test Item Value Reference Range Interpretation [...] S NOT APPLICABLE FOR DIALYSIS PATIEN TS. Registered Radiologic Technologist ID - ADMINPOCT-GLUCOSE [id number] 06:01:00 Test Item Value Reference Range Interpretation Comments POC-GLUCOSE METER 55 mg/dL 70-110 L : Notified RN/MD: TESTED (BEAKER) (test code = AT SLS L [address]) [place] [address]: Registered Radiologic Technologist/Techni artemio ID = [id number] for Anahi Sherman CBC W/PLT COUNT & AUTO [id number] 05:44:00 Test Item Value Reference Range Interpretation [...] PERCENT (BEAKER) (test code = 2801) POCT-GLUCOSE [id number] 21:03:00 Test Item Value Reference Range Interpretation Comments POC-GLUCOSE METER 278 mg/dL 70-110 H : Notified RN/MD: TESTED ([facility]) (test code AT [facility] [address] = [address]) [place] [address]: Registered Radiologic Technologist/Techni artemio ID = [id number] for Anahi Sherman POCT-GLUCOSE [id number] 16:53:00 Test Item Value Reference Range Interpretation Comments POC-GLUCOSE METER 70 mg/dL 70-110 : TESTED A T [facility] 1317 ([facility]) (test code = [address] [facility], 153) [place] [address]: Registered Radiologic Technologist/Techni artemio ID = [id number] for Nalini Jean Baptiste POCT-GLUCOSE [id number] 12:11:00 Test Item Value Reference Range Interpretation Comments POC-GLUCOSE METER 97 mg/dL 70-110 : [facility] (test code = [address] [facility], 153) [place] [address]: Registered Radiologic Technologist/Techni artemio ID = [id number] for Akhil hurtado, Rachelleea POCT-GLUCOSE [id number] 06:21:00 Test Item Value Reference Range Interpretation Comments POC-GLUCOSE METER 71 mg/dL 70-110 : [facility] (BEAKER) (test code = [address] [facility], 153) [place] [address]: Registered Radiologic Technologist/Techni artemio ID = [id number] for Holly Alamo COMPREHENSIVE METABOLIC [id number] 05:50:00 Test Item Value Reference Range Interpretation [...] S NOT APPLICABLE FOR DIALYSIS PATIEN TS. Registered Radiologic Technologist ID - ADMINCBC W/PLT COUNT & AUTO [id number] 05:17:00 Test Item Value Reference Range Interpretation [...] (BEAKER) (test code = 2801) Prepare Leuko-Red [id number] 23:54:00 Test Item Value Reference Range Interpretation Comments CROSSMATCH (test code = 2264) COMPATIBLE Unit ABO (test code = O Pos 6066183) UNIT NUMBER (test code = [id number] 934-0) Status (test code = 9151444) TX_TIMEINCHART Blood Bank Product (test code RED BLOOD CELLS = 2263) PRODUCT CODE (test code = H2352H17 933-2) [facility] CenterPOCT-GLUCOSE [id number] 21:03:00 Test Item Value Reference Range Interpretation Comments POC-GLUCOSE METER 87 mg/dL 70-110 : TESTED A T [address] (BEAKER) (test code = [address]) [place] [address]: Registered Radiologic Technologist/Techni artemio ID = [id number] for Nwjanis iuKolby grahaml POCT-GLUCOSE [id number] 17:12:00 Test Item Value Reference Range Interpretation Comments POC-GLUCOSE METER 79 mg/dL 70-110 : TESTED A T [address] [address] (BEAKER) (test code = [address]) [place] [address]: Registered Radiologic Technologist/Techni artemio ID = [id number] for Nalini Jean Baptiste POCT-GLUCOSE [id number] 11:37:00 Test Item Value Reference Range Interpretation Comments POC-GLUCOSE METER 262 mg/dL 70-110 H : TESTED A T [facility] [address]17 (BEAKER) (test code [address], = 15[address]) [place] [address]: Registered Radiologic Technologist/Techni artemio ID = [id number] for Nalini Jean Baptiste COMPREHENSIVE METABOLIC [id number] 06:29:00 Test Item Value Reference Range Interpretation [...] S NOT APPLICABLE FOR DIALYSIS PATIEN TS. Registered Radiologic Technologist ID - ADMINCBC W/PLT COUNT & AUTO [id number] 06:12:00 Test Item Value Reference Range Interpretation [...] PERCENT (BEAKER) (test code = 2801) POCT-GLUCOSE [id number] 06:09:00 Test Item Value Reference Range Interpretation Comments POC-GLUCOSE METER 83 mg/dL 70-110 : Notified RN/MD: TESTED (BEAKER) (test code = AT [facility] [address]) [place] [address]: Registered Radiologic Technologist/Techni artemio ID = [id number] for Anahi Sherman POCT-GLUCOSE [id number] 16:26:00 Test Item Value Reference Range Interpretation Comments POC-GLUCOSE METER 182 mg/dL 70-110 H : Notified RN/MD: TESTED (BEAKER) (test code AT [facility] [address] = [address]) [place] [address]: Registered Radiologic Technologist/Techni artemio ID = [id number] for Alondra Kelley, [id number] 09:17:00 Test Item Value Reference Range Interpretation Comments Rh Factor (test code = POS 2589) ABO Grouping (test code O PINK TOP 12/24/19 @ 0824 = 2588) [facility] CenterType and screen, [id number] 07:31:00 Test Item Value Reference Range Interpretation Comments ABO/RH AUTOMATED (BEAKER) (test O POSITIVE ECHO code = 2260) Ab Scrn (test code = 890-4) NEGATIVE ECHO [facility] [id number] 06:42:00 Test Item Value Reference Range Interpretation [...] S NOT APPLICABLE FOR DIALYSIS PATIEN TS. Registered Radiologic Technologist ID - ADMINPOCT-GLUCOSE [id number] 06:23:00 Test Item Value Reference Range Interpretation Comments POC-GLUCOSE METER 88 mg/dL 70-110 : TESTED A T [address]SL [address] (BEAKER) (test code = [address]) [facility] [address]: Registered Radiologic Technologist/Techni artemio ID = [id number] for Anne Busby CBC W/PLT COUNT & AUTO [id number] 06:23:00 Test Item Value Reference Range Interpretation [...] PERCENT (BEAKER) (test code = 2801) POCT-GLUCOSE [id number] 21:38:00 Test Item Value Reference Range Interpretation Comments POC-GLUCOSE METER 126 mg/dL 70-110 H : TESTED A T [facility]SL [address]17 (BEAKER) (test code [address] [facility], = 1538) [facility] [address]: Registered Radiologic Technologist/Techni artemio ID = [id number] for Anne Busby POCT-GLUCOSE [id number] 16:54:00 Test Item Value Reference Range Interpretation Comments POC-GLUCOSE METER 89 mg/dL 70-110 : Notified RN/MD: TESTED (BEAKER) (test code = AT [address]LS L [address]) [facility] [address]: Registered Radiologic Technologist/Techni artemio ID = [id number] for Alondra Kelley MR, EXTREMITY, LOWER, JOINT, WITHOUT CONTRAST, [id number] 16:10:00Unlisted Reason for Exam - Click Yes [...] MDReport Verified Date/Time: 12/23/2019 16:10:32 Reading Location: [facility] C013X Ortho Consult Reading Room MR lower extremity joint only without IV contrast left [id number] 16:10:00Interface, External Ris In - 12/23/2019 4:12 [...] MDReport Verified Date/Time: 12/23/2019 16:10:32 Reading Location: [facility] C013X Ortho Consult Reading Room [facility], [facility]RAIN, WITHOUT [id number] 15:43:00Unlisted Reason for Exam - Click Yes [...] Date/Time: 12/23/2019 15:43:24 MR brain without IV [id number] 15:43:00Interface, External Ris In - 12/23/2019 3:45 [...] Signed: Berta Muniz Verified Date/Time: 12/23/2019 15:43:24 [facility] Center[facility]OV2/[facility]-PCR ([facility])2019-12-23 14:16:00 Test Item Value Reference Range Interpretation Comments SARS-COV2/RT-PCR (test Negative Not Detected, Negative, code = 6942746) See external report for linked test SARS-COV-2 PERFORMING LAB [facility] JANET (test code = 2397710) Negative result for this test determines that [...] 564(g) of the Act.Fact Sheet for Healthcare Providers:https://www.Bridg.treadalong/sites/default/files/product/documents/Fact_Shee b_OI_Rxjupjklr_Aswi_HXES-FgX-0.pdfFact Sheet for Healthcare Patients:https://www.Bridg.com/sites/default/files/product/ documents/Jgtf_Cbttn_Srdixadt_Lmct_CCXD-GcC-7.pdfPerforming Laboratory:[facility], [place] [address]Rsheb / lambda light chains, [id number] 12:25:00 Test Item Value Reference Interpretation Comments Range [facility] [place] Lt Chain,Free 474.4 mg/L 3.3-19.4 H (test code = 88744-3) Lambda Lt 225.6 mg/L 5.7-26.3 H Chain,Free (test code = 52681-1) [facility]/Lambda,Free 2.1 0.26-1.65 H Free annabelle a/lambda (test [...] (test code = Performing Lab ZIA) EZ FashionQlub [facility] [address] [place] [address] Jaguar Stein MD, PhD, CORI Lab Interpretation Abnormal (test code = 30243-3) [facility] CenterPOCT-GLUCOSE [id number] 11:27:00 Test Item Value Reference Range Interpretation Comments POC-GLUCOSE METER 189 mg/dL 70-110 H : Notified RN/MD: TESTED (ROBERT) (test code AT [facility] [address] [place] [address] = 1538) [facility] [address]: Registered Radiologic Technologist/Techni artemio ID = [id number] for Repa julio, Alondra ARTERIAL DOPPLER LEGS, [id number] 11:22:00Reason for exam:->non healing ulcer , non [...] MDReport Verified Date/Time: 12/23/2019 11:22:31 Reading Location: [facility] Radiology Reading Room Arterial Doppler Legs [id number] 11:22:00 Interface, External Ris In - 12/23/2019 [...] MDReport Verified Date/Time: 12/23/2019 11:22:31 Reading Location: [facility] Radiology Reading Room [facility] HospitalCOMPRE[facility]ENSIVE MET[facility] [id number] 04:44:00 Test Item Value Reference Range Interpretation [...] S NOT APPLICABLE FOR DIALYSIS PATIEN TS. Registered Radiologic Technologist ID - ADMINCBC W/PLT COUNT & AUTO [id number] 04:35:00 Test Item Value Reference Range Interpretation [...] H PERCENT (BEAKER) (test code = 2801) [id number] 04:29:00 Test Item Value Reference Range Interpretation Comments Ammonia (test code = 36 17- 80 mol/L 39939-2) ZIA (test code = ZIA) Registered Radiologic Technologist ID - ADMIN Lab Interpretation (test Normal code = 44582-1) [facility] CenterAMMONIA2020-09-24 04:29:00 Test Item Value Reference Range Interpretation Comments AMMONIA (BEAKER) (test code = 348) 36 mol/L 17-80 Registered Radiologic Technologist ID - ADMINPOCT-GLUCOSE [id number] 20:45:00 Test Item Value Reference Range Interpretation Comments POC-GLUCOSE METER 95 mg/dL 70-110 : TESTED A T [facility] [address]17 (BEAKER) (test code = [address]) [place] [address]: Registered Radiologic Technologist/Techni artemio ID = [id number] for Anne Busby POCT-GLUCOSE [id number] 17:08:00 Test Item Value Reference Range Interpretation Comments POC-GLUCOSE METER 107 mg/dL 70-110 : TESTED A T [facility] [address] (BEAKER) (test code [address], = 1538) [place] [address]: Registered Radiologic Technologist/Techni artemio ID = [id number] for Jordyn Fonseca POCT-GLUCOSE [id number] 11:55:00 Test Item Value Reference Range Interpretation Comments POC-GLUCOSE METER 135 mg/dL 70-110 H : TESTED A T [facility] [address] (BEAKER) (test code [address], = 1538) [place] [address]: Registered Radiologic Technologist/Techni artemio ID = [id number] for Jordyn Fonseca Anti-Nuclear Antibody (ROGER)2019-12-22 11:40:00 Test Item Value Reference Range Interpretation Comments ROGER (test code = 61475-9) Positive Negative A ZIA (test code = ZIA) Test performed by IFA method. Lab Interpretation (test Abnormal code = 01987-6) [facility] CenterANA Titer & [id number] 11:40:00 Test Item Value Reference Range Interpretation Comments ROGER Titer (test code = 13121-7) 1:40 ROGER Pattern (test code = 1781) Speckled [facility] CenterANTI-NUCLEAR ANTIBODY (ROGER)2019-12-22 11:40:00 Test Item Value Reference Range Interpretation Comments ANTI-NUCLEAR ANTIBODY (ROGER) (BEAKER) Positive Negative A (test code = 418) Test performed by IFA method.ROGER TITER AND [id number] 11:40:00 Test Item Value Reference Range Interpretation Comments ROGER TITER (BEAKER) (test code = :40 1541) ROGER PATTERN (BEAKER) (test code = Speckled 1781) POCT-GLUCOSE [id number] 06:44:00 Test Item Value Reference Range Interpretation Comments POC-GLUCOSE METER 92 mg/dL 70-110 : TESTED A T [facility] [address]17 (BEAKER) (test code = [address]) [facility] [place] [address]: Registered Radiologic Technologist/Techni artemio ID = [id number] for Anne Busby COMPREHENSIVE METABOLIC [id number] 06:35:00 Test Item Value Reference Range Interpretation [...] S NOT APPLICABLE FOR DIALYSIS PATIEN TS. Registered Radiologic Technologist ID - ADMINCBC W/PLT COUNT & AUTO [id number] 06:16:00 Test Item Value Reference Range Interpretation [...] PERCENT (BEAKER) (test code = 2801) POCT-GLUCOSE [id number] 20:38:00 Test Item Value Reference Range Interpretation Comments POC-GLUCOSE METER 85 mg/dL 70-110 : TESTED A T [facility] [address] (BEAKER) (test code = [address], 15[address]) [place] [address]: Registered Radiologic Technologist/Techni artemio ID = [id number] for Anne Busby POCT-GLUCOSE [id number] 18:14:00 Test Item Value Reference Range Interpretation Comments POC-GLUCOSE METER 112 mg/dL 70-110 H : TESTED A T [facility] [address] (BEAKER) (test code [address], = 1538) [place] [address]: Registered Radiologic Technologist/Techni artemio ID = [id number] for Christina r, Berta POCT-GLUCOSE [id number] 13:00:00 Test Item Value Reference Range Interpretation Comments POC-GLUCOSE METER 77 mg/dL 70-110 : TESTED A T [facility] [address] (BEAKER) (test code = [address], 1538) [place] [address]: Registered Radiologic Technologist/Techni artemio ID = [id number] for Christina r, Berta POCT-GLUCOSE [id number] 07:32:00 Test Item Value Reference Range Interpretation Comments POC-GLUCOSE METER 60 mg/dL 70-110 L : TESTED A T [facility] [address] (BEAKER) (test code = [address], 1538) [place] [address]: Registered Radiologic Technologist/Techni artemio ID = [id number] for Marissa Page COMPREHENSIVE METABOLIC [id number] 06:11:00 Test Item Value Reference Range Interpretation [...] S NOT APPLICABLE FOR DIALYSIS PATIEN TS. Registered Radiologic Technologist ID - ADMINC-Reactive [id number] 06:06:00 Test Item Value Reference Range Interpretation Comments CRP (test code = 676) 1.63 mg/dL 0-0.5 H ZIA (test code = ZIA) Registered Radiologic Technologist ID - ADMIN Lab Interpretation (test Abnormal code = 90627-0) [facility] CenterC-REACTIVE [id number] 06:06:00 Test Item Value Reference Range Interpretation Comments C-REACTIVE PROTEIN (BEAKER) (test 1.63 mg/dL 0.00-0.50 H code = 676) Registered Radiologic Technologist ID - ADMINPOCT-GLUCOSE [id number] 06:04:00 Test Item Value Reference Range Interpretation Comments POC-GLUCOSE METER 56 mg/dL 70-110 L : Notified RN/MD: TESTED (BEAKER) (test code = AT [address]LS [address]) [facility] [address]: Registered Radiologic Technologist/Techni artemio ID = [id number] for Nelda Abdi CBC W/PLT COUNT & AUTO [id number] 05:53:00 Test Item Value Reference Range Interpretation [...] (BEAKER) (test code = 2801) U/S, ABDOMINAL, [id number] 22:02:00Reason for exam:->thrombocytopenia / eval for hepatosplenomegalyFINAL [...] MDReport Verified Date/Time: 12/20/2019 22:02:21 US abdomen [id number] 22:02:00Interface, External Ris In - 12/20/2019 10:04 [...] Hever Marin MDReport Verified Date/Time: 12/20/2019 22:02:21 [facility] CenterPOCT[facility] [id number] 20:36:00 Test Item Value Reference Range Interpretation Comments POC-GLUCOSE METER 74 mg/dL 70-110 : Notified RN/MD: TESTED ([facility]) (test code = AT SLS L [address]) [facility] [address]: Registered Radiologic Technologist/Techni artemio ID = [id number] for Nelda Abdi POCT-GLUCOSE [id number] 17:50:00 Test Item Value Reference Range Interpretation Comments POC-GLUCOSE METER 72 mg/dL 70-110 : TESTED A T [facility] 1317 ([facility]) (test code = [address] [facility], 153) [facility] [address]: Registered Radiologic Technologist/Techni artemio ID = [id number] for Christina osborne Berta CT, BRAIN, WITHOUT [id number] 16:08:00Unlisted Reason for Exam - Click Yes [...] Date/Time: 12/20/2019 16:08:40 CT brain without IV [id number] 16:08:00Interface, External Ris In - 12/20/2019 4:10 [...] Signed: Berta Muniz Verified Date/Time: 12/20/2019 16:08:40 [facility], 2 [facility]WS, [id number] 15:15:00Reason for exam:->Rule out osteomyelitisShould this be [...] MDRtieraort Verified Date/Time: 12/20/2019 15:15:25 Reading Location: [facility] Radiology Reading Room , FOOT, 2 VIEWS, [id number] 15:15:00Reason for exam:->Rule out osteomyelitisShould this be [...] MDReport Verified Date/Time: 12/20/2019 15:15:25 Reading Location: [facility] Radiology Reading Room XR foot 2 views [id number] 15:15:00Interface, External Ris In - 12/20/2019 3:17 [...] MDReport Verified Date/Time: 12/20/2019 15:15:25 Reading Location: [facility] Radiology Reading Room [facility] CenterXR foot 2 views [id number] 15:15:00Interface, External Ris In - 12/20/2019 3:17 [...] Monahan Verified Date/Time: 12/20/2019 15:15:25 Reading Location: [facility] Radiology Reading Room [facility] CenterAMMONIA2020-09-21 14:56:00 Test Item Value Reference Range Interpretation Comments AMMONIA (BEAKER) (test code = 348) 33 mol/L 17-80 Registered Radiologic Technologist ID - ADMINBlood gas, [id number] 14:41:00 Test Item Value Reference Range Interpretation Comments pH, Arterial (test code = 2744-1) 7.33 7.35-7.45 L pCO2, Arterial (test code = 58 35- 45 mmHg H 2019-8) pO2, Arterial (test code = 2703-7) 109 80- 90 mmHg H O2 Sat, Arterial (test code = 97.5 % 96-97 H 2708-6) HCO3, Arterial (test code = 30 mmol/L 21-29 H 1960-4) Base Excess, Arterial (test code = 2.6 mmol/L -2-3 1925-7) Patient Temperature (test code = 37.0 C 8310-5) FIO2 (test code = 1819) 32 % Lab Interpretation (test code = Abnormal 88274-5) [facility] CenterBLOOD GAS, [id number] 14:41:00 Test Item Value Reference Range Interpretation [...] code = 1819) 32.0 % Occult blood, [id number] 11:56:00 Test Item Value Reference Range Interpretation Comments Occult blood (test code = 2335-8) Negative Negative Lab Interpretation (test code = Normal 47537-2) [facility] CenterOCCULT BLOOD, [id number] 11:56:00 Test Item Value Reference Range Interpretation Comments FECAL OCCULT BLOOD (BEAKER) (test Negative Negative code = 618) POCT-GLUCOSE [id number] 11:39:00 Test Item Value Reference Range Interpretation Comments POC-GLUCOSE METER 88 mg/dL 70-110 : TESTED A T [address] (BEAKER) (test code = [address]) [facility] [place] [address]: Registered Radiologic Technologist/Techni artemio ID = [id number] for Gifty Phelps [id number] 11:22:00 Test Item Value Reference Range Interpretation Comments Haptoglobin (test code = <8 14-258 L 4542-7) ZIA (test code = ZIA) Registered Radiologic Technologist ID - LEONIE F Lab Interpretation (test Abnormal code = 48581-3) [facility] CenterHAPTOGLOBIN2020-09-21 11:22:00 Test Item Value Reference Range Interpretation Comments HAPTOGLOBIN (BEAKER) (test code = < mg/dL 14-258 L 366) Registered Radiologic Technologist ID - LEONIE FT4, [id number] 11:01:00 Test Item Value Reference Range Interpretation Comments Free T4 (test code = 0.52 ng/dL 0.9-1.8 L 3024-7) ZIA (test code = ZIA) Registered Radiologic Technologist ID - ADMIN Lab Interpretation (test Abnormal code = 31854-7) [facility] CenterT4, [id number] 11:01:00 Test Item Value Reference Range Interpretation Comments FREE T4 (BEAKER) (test code = 655) 0.52 ng/dL 0.90-1.80 L Registered Radiologic Technologist ID - ADMINPeripheral Blood Smear - Path [id number] 08:19:00 Test Item Value Reference Range Interpretation [...] Griffith M.D. code = 2849) (electronic signature) [facility] CenterPERIPHERAL BLOOD SMEAR - PATHOLOGIST REVIEW 2019-12-20 08:19:00 Test Item Value Reference Range Interpretation Comments RBC MORPHOLOGY Target Cells (BEAKER) (test code = 2846) RBC MORPHOLOGY Basophilic Stippling (BEAKER) (test code = 94774) RBC MORPHOLOGY Nucleated Red Blood Cells (BEAKER) (test code = 34594) PERIPHERAL SMR Normochromic normocytic REVIEW (BEAKER) anemia with a few target (test code = 2640) cells, nucleated RBCs and basophilic stippling. No increase in schistocytes. WBCs normal in number and morphology. Thrombocytopenia with normal platelet morphology. [id number] Jovita Griffith M.D. 2 (BEAKER) (test (electronic signature) code = 2849) Vitamin B12 and [id number] 06:37:00 Test Item Value Reference Range Interpretation Comments Vitamin B12 (test code = 1431 pg/mL 211-911 H 2132-9) Folate (test code = 17.00 ng/mL >=5.4 2284-8) ZIA (test code = ZIA) Registered Radiologic Technologist ID - ADMIN Lab Interpretation (test Abnormal code = 78813-9) [facility] CenterVITAMIN B12 AND [id number] 06:37:00 Test Item Value Reference Range Interpretation Comments VITAMIN B12 (BEAKER) (test code = 1431 pg/mL 211-911 H 774) FOLATE (BEAKER) (test code = 362) 17.00 ng/mL >=5.4 Registered Radiologic Technologist ID - ADMINPOCT-GLUCOSE [id number] 06:32:00 Test Item Value Reference Range Interpretation Comments POC-GLUCOSE METER 79 mg/dL 70-110 : TESTED A T [address] (BEAKER) (test code = [address], [address]) [facility] [address]: Registered Radiologic Technologist/Techni artemio ID = [id number] for Anahi Sherman [id number] 06:25:00 Test Item Value Reference Range Interpretation Comments Ferritin (test code = 595.00 ng/mL 10-291 H 2276-4) ZIA (test code = ZIA) Registered Radiologic Technologist ID - ADMIN Lab Interpretation (test Abnormal code = 84527-3) [facility] CenterTSH/Free T4 If [id number] 06:25:00 Test Item Value Reference Range Interpretation Comments TSH (test code = 21.210 0.350- 5.500 uIU/mL H 71403-8) ZIA (test code = ZIA) Registered Radiologic Technologist ID - ADMIN Lab Interpretation (test Abnormal code = 20443-1) [facility] CenterFERRITIN2020-09-21 06:25:00 Test Item Value Reference Range Interpretation Comments FERRITIN (BEAKER) (test code = 595.00 ng/mL 10.00-291.00 H 361) Registered Radiologic Technologist ID - ADMINTSH/FREE T4 IF [id number] 06:25:00 Test Item Value Reference Range Interpretation Comments THYROID STIMULATING HORMONE 21.210 uIU/mL 0.350-5.500 H (BEAKER) (test code = 772) Registered Radiologic Technologist ID - YNPIEOvughbpglo0086-26-02 06:06:00 Test Item Value Reference Range Interpretation Comments Fibrinogen (test code = 340 mg/dL 050-303 1438-7) ZIA (test code = ZIA) Final Information (Auto Output) Lab Interpretation (test Normal code = 30805-7) [facility] CenterPT/[id number] 06:06:00 Test Item Value Reference Range Interpretation Comments Protime (test code = 13.5 9.3- 12.0 sec H 5902-2) INR (test code = 1.25 <=5.90 6301-6) PTT (test code = 38.2 23.0- 35.0 sec H 19475-7) ZIA (test code = ZIA) RECOMMENDED COUMADIN/WARFARIN INR THERAPY RANGESSTANDARD DOSE: 2.0 - 3.0 Includes: PROPHYLAXIS for venous thrombosis, systemic embolization; TREATMENT for venous thrombosis and/or pulmonary embolus.HIGH RISK: Target INR is 2.5-3.5 for patients with mechanical heart valves.Final Information (Auto Output)Final Information (Auto Output)Final Information (Auto Output) Lab Interpretation Abnormal (test code = 21807-8) [facility] CenterFIBRINOGEN2020-09-21 06:06:00 Test Item Value Reference Range Interpretation Comments FIBRINOGEN LEVEL (BEAKER) (test 340 mg/dL 200-400 code = 658) Final Information (Auto Output)PT/[id number] 06:06:00 Test Item Value Reference Range Interpretation [...] = 2502-3) ZIA (test code = ZIA) Registered Radiologic Technologist ID - ADMIN Lab Interpretation (test Abnormal code = 09920-2) [facility] CenterIRON, TIBC, % SAT. (WITHOUT FERRITIN)2019-12-20 05:59:00 Test Item Value Reference Range Interpretation Comments IRON (BEAKER) (test code = 547) 92.0 ug/dL 45.0-170.0 TOTAL IRON BINDING CAPACITY 151 ug/dL 250-550 L (BEAKER) (test code = 769) IRON % SATURATION (2) (BEAKER) 61 % 20-55 H (test code = 2590) Registered Radiologic Technologist ID - ADMINCOMPREHENSIVE METABOLIC [id number] 05:55:00 Test Item Value Reference Range Interpretation [...] S NOT APPLICABLE FOR DIALYSIS PATIEN TS. Registered Radiologic Technologist ID - NODWGT-cehyz0927-95-21 05:46:00 Test Item Value Reference Range Interpretation Comments D-Dimer, Quant (test 1.09 mg/L <0.50 H code = 22928-0) ZIA (test code = ZIA) REGARDING D-DIMER RESULTS: The 98% NPV (Negative Predictive Value) for DVT/PE exclusion is 0.50 mg/L FEU as suggested by the core winder and as approved by the FDA.Final Information (Auto Output) Lab Interpretation (test Abnormal code = 23776-8) [facility] CenterD-[id number] 05:46:00 Test Item Value Reference Range Interpretation Comments D-DIMER QUANTITATIVE (BEAKER) (test 1.09 mg/L <0.50 H code = 671) REGARDING D-DIMER RESULTS: The 98% NPV (Negative Predictive Value) for DVT/PE exclusion is 0.50 mg/LFEU as suggested by the core winder and as approved by the FDA.Final Information (Auto Output)Reticulocyte [id number] 05:42:00 Test Item Value Reference Range Interpretation Comments % Retic (test code = 26788-8) 5.9 % 0.4-2.9 H Lab Interpretation (test code = Abnormal 79808-3) [facility] CenterRETICULOCYTE [id number] 05:42:00 Test Item Value Reference Range Interpretation Comments RETICULOCYTE COUNT PCT (BEAKER) (test 5.9 % 0.4-2.9 H code = 575) CBC W/PLT COUNT & AUTO [id number] 05:33:00 Test Item Value Reference Range Interpretation [...] U/L 107-206 ZIA (test code = ZIA) Registered Radiologic Technologist ID - ADMIN Lab Interpretation (test Normal code = 70496-3) [facility] CenterLACTATE DEHYDROGENASE (LDH)2019-12-19 21:19:00 Test Item Value Reference Range Interpretation Comments LACTATE DEHYDROGENASE (BEAKER) (test 178 U/L 107-206 code = 635) Registered Radiologic Technologist ID - ADMINPOCT-GLUCOSE [id number] 20:47:00 Test Item Value Reference Range Interpretation Comments POC-GLUCOSE METER 102 mg/dL 70-110 : TESTED A T [address] (BEAKER) (test code [address], = 1538) [facility] [address]: Registered Radiologic Technologist/Techni artemio ID = [id number] for Anahi Sherman POCT-GLUCOSE [id number] 16:18:00 Test Item Value Reference Range Interpretation Comments POC-GLUCOSE METER 96 mg/dL 70-110 : TESTED A T [address] (BEAKER) (test code = [address], 15[address]) [facility] [address]: Registered Radiologic Technologist/Techni artemio ID = [id number] for Nalini Jean Baptiste Basic Metabolic [id number] 06:26:00 Test Item Value Reference Range Interpretation Comments Sodium (test code = 138 meq/L 645-343 5700-2) Potassium (test code = 3.9 meq/L 3.6-5.5 2823-3) Chloride (test code = 99 meq/L 98-106 2075-0) CO2 (test code = 30 meq/L 20-29 H 2028-9) BUN (test code = 47 mg/dL 10-26 H 3094-0) Creatinine (test code 3.04 mg/dL 0.5-1.2 H = 2160-0) Glucose (test code = 82 mg/dL 70-110 2345-7) Calcium (test code = 7.9 mg/dL 8.5-10.5 L 50058-9) EGFR (test code = 15 mL/min/1.73 [place] [address]-3) NOT ACCURATE CREATININE CLEARANCE IN PREDICTING GLOMERULAR FILTRATION RATE . ESTIMATED GFR I S NOT APPLICABLE FOR DIALYSIS PATIENTS. ZIA (test code = ZIA) Registered Radiologic Technologist ID - ADMIN Lab Interpretation Abnormal (test code = 72449-8) [facility] METABOLIC [id number] 06:26:00 Test Item Value Reference Range Interpretation [...] S NOT APPLICABLE FOR DIALYSIS PATIEN TS. Registered Radiologic Technologist ID - ADMINCBC W/PLT COUNT & AUTO [id number] 06:04:00 Test Item Value Reference Range Interpretation [...] PERCENT (BEAKER) (test code = 2801) POCT-GLUCOSE [id number] 05:35:00 Test Item Value Reference Range Interpretation Comments POC-GLUCOSE METER 85 mg/dL 70-110 : Notified RN/MD: TESTED (BEAKER) (test code = AT [address]) [place] [address]: Registered Radiologic Technologist/Techni artemio ID = [id number] for Siddhartha Healyar POCT-GLUCOSE [id number] 21:46:00 Test Item Value Reference Range Interpretation Comments POC-GLUCOSE METER 125 mg/dL 70-110 H : Notified RN[facility]: [facility] [address]) [place] [address]: Registered Radiologic Technologist/Techni artemio ID = [id number] for Zonia eHaly POCT-GLUCOSE [id number] 16:17:00 Test Item Value Reference Range Interpretation Comments POC-GLUCOSE METER 103 mg/dL 70-110 : TESTED A T [address] (BEAKER) (test code [address] [facility], = 1538) [place] [address]: Registered Radiologic Technologist/Techni artemio ID = [id number] for Rachelle Jean Baptisteea POCT-GLUCOSE [id number] 07:56:00 Test Item Value Reference Range Interpretation Comments POC-GLUCOSE METER 111 mg/dL 70-110 H : TESTED A T [address] (BEAKER) (test code [address] [facility], = 1538) [place] [address]: Registered Radiologic Technologist/Techni artemio ID = [id number] for Akhil rs, Rachelleea POCT-GLUCOSE [id number] 06:25:00 Test Item Value Reference Range Interpretation Comments POC-GLUCOSE METER 57 mg/dL 70-110 L : TESTED A T [address] (BEAKER) (test code = [address] [facility], 1538) [place] [address]: Registered Radiologic Technologist/Techni artemio ID = [id number] for Damian Busbyen POCT-GLUCOSE [id number] 21:55:00 Test Item Value Reference Range Interpretation Comments POC-GLUCOSE METER 76 mg/dL 70-110 : TESTED A T [address] (BEAKER) (test code = [address], [address]) [place] [address]: Registered Radiologic Technologist/Techni artemio ID = [id number] for Ashley austin, Anne POCT-GLUCOSE [id number] 18:03:00 Test Item Value Reference Range Interpretation Comments POC-GLUCOSE METER 81 mg/dL 70-110 : TESTED A T [address] (BEAKER) (test code = [address], [address]) [place] [address]: Registered Radiologic Technologist/Techni artemio ID = [id number] for Ericka Daniel POCT-GLUCOSE [id number] 12:33:00 Test Item Value Reference Range Interpretation Comments POC-GLUCOSE METER 73 mg/dL 70-110 : TESTED A T [address] (BEAKER) (test code = [address], 1538) [place] [address]: Registered Radiologic Technologist/Techni artemio ID = [id number] for Marisela Bolton Hepatitis B surface [id number] 10:49:00 Test Item Value Reference Range Interpretation Comments Hep B S Ab (test code = <8.0 <8.0 mIU/mL 64834-7) ZIA (test code = ZIA) Registered Radiologic Technologist ID - LEONIE Jay Lab Interpretation (test Normal code = 90044-6) [facility] CenterHEPATITIS B SURFACE [id number] 10:49:00 Test Item Value Reference Range Interpretation Comments HEPATITIS B SURFACE ANTIBODY < mIU/mL <8.0 (BEAKER) (test code = 647) Registered Radiologic Technologist ID - LEONIE FHepatitis B core antibody, [id number] 10:43:00 Test Item Value Reference Range Interpretation Comments Hep B Core Total Ab Nonreactive Nonreactive (test code = 58349-7) ZIA (test code = ZIA) Registered Radiologic Technologist ID - LEONIE Jay Lab Interpretation (test Normal code = 57871-6) [facility] CenterHepatitis C [id number] 10:43:00 Test Item Value Reference Range Interpretation Comments Hepatitis C Ab (test Nonreactive Nonreactive code = 77744-7) ZIA (test code = ZIA) Registered Radiologic Technologist ID - LEONIE F Lab Interpretation (test Normal code = 80422-7) [facility] CenterHEPATITIS C [id number] 10:43:00 Test Item Value Reference Range Interpretation Comments HEPATITIS C ANTIBODY (BEAKER) Nonreactive Nonreactive (test code = 367) Registered Radiologic Technologist ID - LEONIE FHEPATITIS B CORE ANTIBODY, [id number] 10:43:00 Test Item Value Reference Range Interpretation Comments HEPATITIS B CORE TOTAL ANTIBODY Nonreactive Nonreactive (BEAKER) (test code = 497) Registered Radiologic Technologist ID - LEONIE FPOCT-GLUCOSE [id number] 06:31:00 Test Item Value Reference Range Interpretation Comments POC-GLUCOSE METER 67 mg/dL 70-110 L : TESTED A T [address] (BEAKER) (test code = [address], 1538) [facility] [address]: Registered Radiologic Technologist/Techni artemio ID = [id number] for Anne Busby COMPREHENSIVE METABOLIC [id number] 05:10:00 Test Item Value Reference Range Interpretation [...] S NOT APPLICABLE FOR DIALYSIS PATIEN TS. Registered Radiologic Technologist ID - ADMINCBC W/PLT COUNT & AUTO [id number] 04:36:00 Test Item Value Reference Range Interpretation [...] PERCENT (BEAKER) (test code = 2801) POCT-GLUCOSE [id number] 21:14:00 Test Item Value Reference Range Interpretation Comments POC-GLUCOSE METER 79 mg/dL 70-110 : TESTED A T [address] (BEAKER) (test code = [address] [facility], 1538) [facility] [address]: Registered Radiologic Technologist/Techni artemio ID = [id number] for Anne Busby POCT-GLUCOSE [id number] 18:35:00 Test Item Value Reference Range Interpretation Comments POC-GLUCOSE METER 68 mg/dL 70-110 L : Notified RN/MD: TESTED (BEAKER) (test code = AT [address] [facility] 1538) [facility] [address]: Registered Radiologic Technologist/Techni artemio ID = [id number] for Alondra Kelley SARS-COV2/RT-PCR ([facility])2019-12-16 17:53:00 Test Item Value Reference Range Interpretation Comments SARS-COV2/RT-PCR (test Negative Not Detected, Negative, code = 3453956) See external report for linked test SARS-COV-2 PERFORMING LAB [facility] JANET (test code = 2766940) Negative result for this test determines that [...] 564(g) of the Act.Fact Sheet for Healthcare Providers:https://www.ContentRealtimeidel.com/sites/default/files/product/documents/Fact_Shee t_JG_Psxzbdkri_Xoli_FUFF-TgV-4.pdfFact Sheet for Healthcare Patients:https://www.Bridg.com/sites/default/files/product/ documents/Xtis_Gtqer_Alwvuwcn_Vqxj_QIJO-SxO-4.pdfPerforming Laboratory:[facility], [place] [address]Izfggzstk B surface [id number] 16:57:00 Test Item Value Reference Range Interpretation Comments HBsAg Screen (test code = Nonreactive Nonreactive 5195-3) ZIA (test code = ZIA) Registered Radiologic Technologist ID - ADMIN Lab Interpretation (test Normal code = 15415-0) [facility] CenterHEPATITIS B SURFACE [id number] 16:57:00 Test Item Value Reference Range Interpretation Comments HEPATITIS B SURFACE ANTIGEN (2) Nonreactive Nonreactive (BEAKER) (test code = 2585) Registered Radiologic Technologist ID - ADMINANG, TUNNELED CATHETER [id number] 15:06:00Reason for Central Line/PICC?->Need for hemodialysis accessReason [...] the patient's medical record by the nurse. Manufacturing Helper: Soto Arias M.D. Frame Straightener: none. Approach: Right internal jugular vein Estimated [...] needle into the right atrium. A 4 Albanian micropuncture sheath was placed and a 0.035 wire was advanced into the IVC. A subcutaneous tunnel was created in the left anterior chest wall by blunt dissection. A 23 cm tip to cuff 15.5 Albanian Duraflow 2 catheter was brought through the [...] Arias MDReport Verified Date/Time: 12/16/2019 15:06:45Reading Location: [facility] Radiology Reading Room IR Tunneled Catheter [id number] 15:06:00 Interface, External Ris In - 12/16/2019 [...] the patient's medical record by the nurse. Manufacturing Helper: Soto Arias M.D. Ass istant: none. [...] A 23 cm tip to cuff 15.5 Albanian Duraflow 2 catheter was brought through the [...] tolerated the procedure well and [facility] the same condition. Results: Spot radiograph of the chest demonstrates the new dialysis catheter to lie in theexpected position with its tip overlying the superior right atrium. Impression: 1. Successful, uncomplicated placement of a left internal jugular tunneled dialysiscatheter using sonographic and fluoroscopic guidance and conscious sedation. Signed: Soto Arias MDReport Verified Date/Time: 12/16/2019 15:06:45 Reading Location: [facility] Radiology Reading Room [facility] CenterPOCT[facility]GLUCOSE [id number] 14:59:00 Test Item Value Reference Range Interpretation Comments POC-GLUCOSE METER 70 mg/dL 70-110 : Notified RN/MD: TESTED (BEAKER) (test code = AT [facility] [address]) [facility] [address]: Registered Radiologic Technologist/Techni artemio ID = [id number] for Alondra Kelley POCT-GLUCOSE [id number] 11:13:00 Test Item Value Reference Range Interpretation Comments POC-GLUCOSE METER 72 mg/dL 70-110 : Notified RN/MD: TESTED (BEAKER) (test code = AT [facility] [address]) [facility] [address]: Registered Radiologic Technologist/Techni artemio ID = [id number] for Alondra Kelley RAD, CHEST, 1 VIEW, NON [id number] 09:20:00Reason for exam:->fallShould this be performed at [...] Arias Verified Date/Time: 12/16/2019 09:20:06 Reading Location: [facility] Radiology Reading Room XR chest 1 view portable / [id number] 09:20:00Interface, External Ris In - 12/16/2019 9:22 [...] Arias Verified Date/Time: 12/16/2019 09:20:06 Reading Location: [facility] Radiology Reading Room Electronically yeimi d by: SOTO ARIAS MD on 12/16/2019 09:20 [facility] POCT-GLUCOSE [id number] 06:03:00 Test Item Value Reference Range Interpretation Comments POC-GLUCOSE METER 74 mg/dL 70-110 : Notified RN/MD: TESTED (BEAKER) (test code = AT [facility] [address]) [place] [facility] [address]: Registered Radiologic Technologist/Techni artemio ID = [id number] for Zonia Healy BASIC METABOLIC [id number] 05:08:00 Test Item Value Reference Range Interpretation [...] S NOT APPLICABLE FOR DIALYSIS PATIEN TS. Registered Radiologic Technologist ID - ADMINProthrombin time/[id number] 05:01:00 Test Item Value Reference Range Interpretation [...] Output) Lab Interpretation Abnormal (test code = 95604-2) [facility] CenterPROTHROMBIN TIME/[id number] 05:01:00 Test Item Value Reference Range Interpretation [...] Information (Auto Output)CBC W/PLT COUNT & AUTO [id number] 04:46:00 Test Item Value Reference Range Interpretation [...] PERCENT (BEAKER) (test code = 2801) POCT-GLUCOSE [id number] 17:13:00 Test Item Value Reference Range Interpretation Comments POC-GLUCOSE METER 220 mg/dL 70-110 H TESTED AT [facility] 6720 (BEAKER) (test [facility] = [facility] 1538) [address] BASIC METABOLIC [id number] 15:47:00 Test Item Value Reference Range Interpretation [...] NOT APPLICABLE FOR DIALYSIS PATIEN TS. POCT-GLUCOSE [id number] 11:30:00 Test Item Value Reference Range Interpretation Comments POC-GLUCOSE METER 268 mg/dL 70-110 H TESTED AT [facility] 6720 (BEAKER) (test code = [address]IAN[address]borne [place] 1538) [address] POCT-GLUCOSE [id number] 07:08:00 Test Item Value Reference Range Interpretation Comments POC-GLUCOSE METER 208 mg/dL 70-110 H TESTED AT [facility] 6720 (BEAKER) (test code = [address] [place] 1538) [address] CALCIUM, [id number] 06:47:00 Test Item Value Reference Range Interpretation Comments CALCIUM IONIZED (BEAKER) (test 1.11 mmol/L 1.12-1.27 L code = 698) PH, BLOOD (BEAKER) (test code = 7.40 1810) BASIC METABOLIC [id number] 06:40:00 Test Item Value Reference Range Interpretation [...] S NOT APPLICABLE FOR DIALYSIS PATIEN TS. [id number] 06:33:00 Test Item Value Reference Range Interpretation Comments PHOSPHORUS (BEAKER) (test code = 5.1 mg/dL 2.3-4.7 H 604) [id number] 06:33:00 Test Item Value Reference Range Interpretation Comments MAGNESIUM (BEAKER) (test code = 2.0 mg/dL 1.6-2.6 627) LACTIC ACID, VENOUS, WHOLE [id number] 06:02:00 Test Item Value Reference Range Interpretation Comments LACTATE BLOOD VENOUS (2) (BEAKER) 0.8 mmol/L 0.5-2.2 (test code = 2872) Effective 08/02/2015: Units/Reference Range ChangeNew: 0.5-2.2 mmol/L Previous: 5-20 mg/dLCBC W/PLT COUNT & AUTO [id number] 05:54:00 Test Item Value Reference Range Interpretation [...] PERCENT (BEAKER) (test code = 2801) POCT-GLUCOSE [id number] 21:30:00 Test Item Value Reference Range Interpretation Comments POC-GLUCOSE METER 248 mg/dL 70-110 H TESTED AT [facility] 6720 ([facility]) (test code = JULIANO Osborne [facility] 1538) [address] RAD, [id number] 21:22:00Reason for exam:->fall, tailbone painFINAL REPORT RAD, [...] Connor Verified Date/Time: 09/04/2017 21:22:03 Reading Location: [address] Reading Room POCT-GLUCOSE [id number] 17:37:00 Test Item Value Reference Range Interpretation Comments POC-GLUCOSE METER 222 mg/dL 70-110 H TESTED AT [facility] 6720 (BEAKER) (test code = JULIANO Osborne [facility] 1538) [address] POCT-GLUCOSE [id number] 13:55:00 Test Item Value Reference Range Interpretation Comments POC-GLUCOSE METER 194 mg/dL 70-110 H TESTED AT [facility] 67 (BEAKER) (test code = JULIANO Osborne [facility] 1538) [address] POCT-GLUCOSE [id number] 12:34:00 Test Item Value Reference Range Interpretation Comments POC-GLUCOSE METER 229 mg/dL 70-110 H TESTED AT [facility] 67 (BEAKER) (test code = JULIANO Osborne [facility] 1538) [address] POCT-GLUCOSE [id number] 08:00:00 Test Item Value Reference Range Interpretation Comments POC-GLUCOSE METER 159 mg/dL 70-110 H TESTED AT [place] [address] (BEAKER) (test code = JULIANO Osborne [facility] 1538) [address] CALCIUM, [id number] 06:00:00 Test Item Value Reference Range Interpretation Comments CALCIUM IONIZED (BEAKER) (test 1.05 mmol/L 1.12-1.27 L code = 698) PH, BLOOD (BEAKER) (test code = 7.45 1810) [id number] 05:59:00 Test Item Value Reference Range Interpretation Comments PHOSPHORUS (BEAKER) (test code = 4.8 mg/dL 2.3-4.7 H 604) [id number] 05:59:00 Test Item Value Reference Range Interpretation Comments MAGNESIUM (BEAKER) (test code = 2.0 mg/dL 1.6-2.6 627) BASIC METABOLIC [id number] 05:59:00 Test Item Value Reference Range Interpretation [...] = 380) CBC W/PLT COUNT & AUTO [id number] 05:32:00 Test Item Value Reference Range Interpretation [...] PERCENT (BEAKER) (test code = 2801) POCT-GLUCOSE [id number] 20:36:00 Test Item Value Reference Range Interpretation Comments POC-GLUCOSE METER 211 mg/dL 70-110 H TESTED AT [place] [address] (BEAKER) (test code = [facility] Dylon [facility] 1538) [address] CREATININE, RANDOM [id number] 19:55:00 Test Item Value Reference Range Interpretation Comments CREATININE URINE (BEAKER) (test 16.1 mg/dL code = 375) Reference Range: No NormalsPROTEIN, RANDOM [id number] 19:55:00 Test Item Value Reference Range Interpretation Comments PROTEIN, URINE (BEAKER) (test code 102 mg/dL 0-14 H = 1569) POCT-GLUCOSE [id number] 18:04:00 Test Item Value Reference Range Interpretation Comments POC-GLUCOSE METER 177 mg/dL 70-110 H TESTED AT [place] [address] (BEAKER) (test code = [facility] 1538) [address] POCT-GLUCOSE [id number] 11:59:00 Test Item Value Reference Range Interpretation Comments POC-GLUCOSE METER 244 mg/dL 70-110 H TESTED AT [place] [address] (BEAKER) (test code = [facility] Dylon [place] 1538) [address] POCT-GLUCOSE [id number] 07:53:00 Test Item Value Reference Range Interpretation Comments POC-GLUCOSE METER 160 mg/dL 70-110 H TESTED AT [facility] 6720 (BEAKER) (test code = JULIANO [place] 1530) [address] BASIC METABOLIC [id number] 05:29:00 Test Item Value Reference Range Interpretation [...] S NOT APPLICABLE FOR DIALYSIS PATIEN TS. [id number] 05:21:00 Test Item Value Reference Range Interpretation Comments MAGNESIUM (BEAKER) (test code = 2.1 mg/dL 1.6-2.6 627) HEPATIC FUNCTION [id number] 05:21:00 Test Item Value Reference Range Interpretation [...] code = 23 U/L 6-55 347) TROPONIN [id number] 05:18:00 Test Item Value Reference Range Interpretation [...] PERCENT (BEAKER) (test code = 2801) TROPONIN [id number] 23:40:00 Test Item Value Reference Range Interpretation [...] acidosis, acute neurological disease, and persistent tachyarrhythmia.POCT-GLUCOSE [id number] 22:51:00 Test Item Value Reference Range Interpretation Comments POC-GLUCOSE METER 214 mg/dL 70-110 H TESTED AT [facility] 6720 ([facility]) (test code = JULIANO Osborne [facility] 1538) [address] RAD, CHEST, 1 VIEW, NON [id number] 21:42:00Reason for exam:->CHEST PAINShould this be performed at the bedside?->YesFINAL REPORT RAD, CHEST, 1 VIEW, NON DEPT INDICATION: CHEST PAIN COMPARISON: Chest x-ray 4 weeks ago TECHNIQUE: Single frontal view of the chest. IMPRESSION:Cardiomegaly.Mild pulmonary interstitial edema with a small right- sided effusion.No acute osseous abnormality. Signed: Dario Abraham MDReport Verified Date/Time: 09/02/2017 21:42:11 Reading Location: [address] onmo Reading Room CREATININE, RANDOM [id number] 21:10:00 Test Item Value Reference Range Interpretation Comments CREATININE URINE (BEAKER) (test 35.5 mg/dL code = 375) Reference Range: No NormalsSODIUM, RANDOM [id number] 21:10:00 Test Item Value Reference Range Interpretation Comments SODIUM URINE (BEAKER) (test code = 80 meq/L 243) Reference Range: No NormalsURINALYSIS W/ [id number] 20:59:00 Test Item Value Reference Range Interpretation [...] code = 514) SOURCE(BEAKER) (test code = 7166) BASIC METABOLIC [id number] 16:49:00 Test Item Value Reference Range Interpretation [...] S NOT APPLICABLE FOR DIALYSIS PATIEN TS. [id number] 16:38:00 Test Item Value Reference Range Interpretation [...] (BEAKER) (test code = 700) BASIC METABOLIC [id number] 13:43:00 Test Item Value Reference Range Interpretation [...] NOT APPLICABLE FOR DIALYSIS PATIEN TS. POCT-GLUCOSE [id number] 12:44:00 Test Item Value Reference Range Interpretation Comments POC-GLUCOSE METER 283 mg/dL 70-110 H TESTED AT [facility] 6720 (BEAKER) (test code = JULIANO Osborne [place] 1538) [address] CALCIUM, [id number] 07:03:00 Test Item Value Reference Range Interpretation Comments CALCIUM IONIZED (BEAKER) (test 1.02 mmol/L 1.12-1.27 L code = 698) PH, BLOOD (BEAKER) (test code = 7.43 1810) [id number] 05:28:00 Test Item Value Reference Range Interpretation Comments PHOSPHORUS (BEAKER) (test code = 3.3 mg/dL 2.3-4.7 604) [id number] 05:28:00 Test Item Value Reference Range Interpretation Comments MAGNESIUM (BEAKER) (test code = 1.5 mg/dL 1.6-2.6 L 627) BASIC METABOLIC [id number] 05:28:00 Test Item Value Reference Range Interpretation [...] PATIEN TS. CBC W/PLT COUNT & AUTO [id number] 05:06:00 Test Item Value Reference Range Interpretation [...] PERCENT (BEAKER) (test code = 2801) POCT-GLUCOSE [id number] 21:08:00 Test Item Value Reference Range Interpretation Comments POC-GLUCOSE METER 202 mg/dL 70-110 H TESTED AT [place] [address] [facility] 1538) [address] POCT-GLUCOSE [id number] 16:50:00 Test Item Value Reference Range Interpretation Comments POC-GLUCOSE METER 287 mg/dL 70-110 H TESTED AT [place] [address] (BEAKER) (test code = [facility] Dylon [facility] 1538) [address] POCT-GLUCOSE [id number] 12:21:00 Test Item Value Reference Range Interpretation Comments POC-GLUCOSE METER 213 mg/dL 70-110 H TESTED AT [place] [address] (BEAKER) (test code = [facility] Dylon [facility] 1538) [address] POCT-GLUCOSE [id number] 08:28:00 Test Item Value Reference Range Interpretation Comments POC-GLUCOSE METER 178 mg/dL 70-110 H TESTED AT [place] [id number] (BEAKER) (test code = [facility] Dylon [facility] 1538) [address] CALCIUM, [id number] 07:06:00 Test Item Value Reference Range Interpretation Comments CALCIUM IONIZED (BEAKER) (test 0.99 mmol/L 1.12-1.27 L code = 698) PH, BLOOD (BEAKER) (test code = 7.42 1810) [id number] 05:37:00 Test Item Value Reference Range Interpretation Comments PHOSPHORUS (BEAKER) (test code = 3.5 mg/dL 2.3-4.7 604) [id number] 05:37:00 Test Item Value Reference Range Interpretation Comments MAGNESIUM (BEAKER) (test code = 1.6 mg/dL 1.6-2.6 627) BASIC METABOLIC [id number] 05:37:00 Test Item Value Reference Range Interpretation [...] PATIEN TS. CBC W/PLT COUNT & AUTO [id number] 05:07:00 Test Item Value Reference Range Interpretation [...] PERCENT (BEAKER) (test code = 2800) POCT-GLUCOSE [id number] 21:24:00 Test Item Value Reference Range Interpretation Comments POC-GLUCOSE METER 255 mg/dL 70-110 H TESTED AT [facility] 6720 (BEAKER) (test code = JULIANO [place] 1538) [address] POCT-GLUCOSE [id number] 17:11:00 Test Item Value Reference Range Interpretation Comments POC-GLUCOSE METER 244 mg/dL 70-110 H TESTED AT [facility] 6720 ([facility]) (test code = JULIANO Osborne [facility] 1538) [address] POCT-GLUCOSE [id number] 11:54:00 Test Item Value Reference Range Interpretation Comments POC-GLUCOSE METER 209 mg/dL 70-110 H TESTED AT [facility] 6720 ([place]OBERT) (test code = JULIANO Osborne [facility] 1538) [address] POCT-GLUCOSE [id number] 08:15:00 Test Item Value Reference Range Interpretation Comments POC-GLUCOSE METER 132 mg/dL 70-110 H TESTED AT [place] [address] ([facility]) (test code = JULIANO Osborne [facility] 1538) [address] RAD, CHEST, 1 VIEW, NON [id number] 07:44:00Reason for exam:->edemaShould this be performed at the bedside?->YesFINAL REPORT Chest one view AP 08/07/2017 7:44 AM CLINICAL INDICATION: edema COMPARISON: 05/31/2017 IMPRESSION: Cardiomediastinal contours are stable. There is mild pulmonary edema,asymmetric to the right. There are trace bilateral pleural effusions, with bibasilar linear atelectasis. Sternotomy wires remain midline. Signed: Regan Cespedes Verified Date/Time: 08/07/2017 07:44:22 Reading Location: [facility] Radiology Reading Room [id number] 05:30:00 Test Item Value Reference Range Interpretation Comments FERRITIN (BEAKER) (test code = 361) 87 ng/mL 5-275 CBC W/PLT COUNT & AUTO [id number] 05:21:00 Test Item Value Reference Range Interpretation [...] % 20-55 L (test code = 2590) [id number] 05:11:00 Test Item Value Reference Range Interpretation Comments PHOSPHORUS (BEAKER) (test code = 3.6 mg/dL 2.3-4.7 604) [id number] 05:11:00 Test Item Value Reference Range Interpretation Comments MAGNESIUM (BEAKER) (test code = 2.0 mg/dL 1.6-2.6 627) BASIC METABOLIC [id number] 05:11:00 Test Item Value Reference Range Interpretation [...] H (BEAKER) (test code = 700) CALCIUM, [id number] 04:58:00 Test Item Value Reference Range Interpretation Comments CALCIUM IONIZED (BEAKER) (test 1.04 mmol/L 1.12-1.27 L code = 698) PH, BLOOD (BEAKER) (test code = 7.41 1810) RETICULOCYTE [id number] 04:51:00 Test Item Value Reference Range Interpretation Comments RETICULOCYTE COUNT PCT (BEAKER) (test 1.2 % 0.5-1.7 code = 575) POCT-GLUCOSE [id number] 20:49:00 Test Item Value Reference Range Interpretation Comments POC-GLUCOSE METER 202 mg/dL 70-110 H TESTED AT [facility] 6720 (BEAKER) (test code = JULIANO [place] 1538) [address] CREATININE, RANDOM [id number] 18:38:00 Test Item Value Reference Range Interpretation Comments CREATININE URINE (BEAKER) (test 56.3 mg/dL code = 375) Reference Range: No NormalsPROTEIN, RANDOM [id number] 18:38:00 Test Item Value Reference Range Interpretation Comments PROTEIN, URINE (BEAKER) (test code 189 mg/dL 0-14 H = 1569) URINALYSIS W/ [id number] 18:34:00 Test Item Value Reference Range Interpretation [...] 516) SOURCE(BEAKER) (test code = Urine, Voided 5670) POCT-GLUCOSE [id number] 17:38:00 Test Item Value Reference Range Interpretation Comments POC-GLUCOSE METER 143 mg/dL 70-110 H TESTED AT [facility] 6720 (BEAKER) (test code = JULIANO [place] 1538) [address] POCT-GLUCOSE [id number] 12:30:00 Test Item Value Reference Range Interpretation Comments POC-GLUCOSE METER 218 mg/dL 70-110 H TESTED AT [facility] 6720 (BEAKER) (test code = JULIANO Osborne [place] 1538) [address] POCT-GLUCOSE [id number] 08:00:00 Test Item Value Reference Range Interpretation Comments POC-GLUCOSE METER 134 mg/dL 70-110 H TESTED AT [facility] 6720 (BEAKER) (test code = JULIANO Osborne [place] 1538) [address] CBC W/PLT COUNT & AUTO [id number] 04:23:00 Test Item Value Reference Range Interpretation [...] (BEAKER) (test code = 2801) BASIC METABOLIC [id number] 04:13:00 Test Item Value Reference Range Interpretation [...] S NOT APPLICABLE FOR DIALYSIS PATIEN TS. [id number] 04:10:00 Test Item Value Reference Range Interpretation Comments PHOSPHORUS (BEAKER) (test code = 4.9 mg/dL 2.3-4.7 H 604) [id number] 04:10:00 Test Item Value Reference Range Interpretation Comments MAGNESIUM (BEAKER) (test code = 1.4 mg/dL 1.6-2.6 L 627) [id number] 04:08:00 Test Item Value Reference Range Interpretation Comments FIBRINOGEN LEVEL (BEAKER) (test 548 mg/dl 225-434 H code = 658) [id number] 04:08:00 Test Item Value Reference Range Interpretation Comments PARTIAL THROMBOPLASTIN TIME 37.7 seconds 22.5-36.0 H (BEAKER) (test code = 760) PROTHROMBIN [id number] 04:07:00 Test Item Value Reference Range Interpretation Comments PROTIME (BEAKER) (test code = 16.2 seconds 11.7-14.7 H 759) INR (BEAKER) (test code = 370) 1.3 <=5.9 RECOMMENDED COUMADIN/WARFARIN INR THERAPY RANGESSTANDARD DOSE: 2.0 - 3.0 Includes: PROPHYLAXIS forvenous thrombosis, systemic embolization; TREATMENT for venous thrombosis and/or pulmonary embolus.HIGH RISK: Target INR is 2.5-3.5 for patients with mechanical heart valves.[id number] 16:59:00 Test Item Value Reference Range Interpretation Comments ACTIVATED CLOTTING TIME 219 sec TEST ED AT [facility] 6720 ([facility]) (test code = JULIANO Osborne [place] 441) [address] BASIC METABOLIC [id number] 14:25:00 Test Item Value Reference Range Interpretation [...] NOT APPLICABLE FOR DIALYSIS PATIEN TS. POCT-GLUCOSE [id number] 13:21:00 Test Item Value Reference Range Interpretation Comments POC-GLUCOSE METER 170 mg/dL 70-110 H TESTED AT [facility] 6720 (BEAKER) (test code = JULIANO [place] 1538) [address] POTASSIUM-STAT [id number] 13:20:00 Test Item Value Reference Range Interpretation Comments POTASSIUM (BEAKER) (test code = 4.2 meq/L 3.6-5.5 379) SODIUM NA-STAT [id number] 13:20:00 Test Item Value Reference Range Interpretation Comments SODIUM (BEAKER) (test code = 381) 133 meq/L 135-148 L HGB/HCT (H&H) - STAT [id number] 12:34:00 Test Item Value Reference Range Interpretation Comments HEMOGLOBIN (BEAKER) (test code = 10.8 g/dL 12.0-15.0 L 410) HEMATOCRIT (BEAKER) (test code = 32.0 % 36.0-45.0 L 411) POTASSIUM-STAT [id number] 08:15:00 Test Item Value Reference Range Interpretation Comments POTASSIUM (BEAKER) (test code = 4.1 meq/L 3.6-5.5 379) BLOOD GAS, [id number] 08:15:00 Test Item Value Reference Range Interpretation [...] code = 1819) 70.0 % SODIUM NA-STAT [id number] 08:15:00 Test Item Value Reference Range Interpretation Comments SODIUM (BEAKER) (test code = 381) 130 meq/L 135-148 L GLUCOSE-STAT [id number] 08:15:00 Test Item Value Reference Range Interpretation Comments GLUCOSE RANDOM (BEAKER) (test code 172 mg/dL 70-110 H = 652) HGB/HCT (H&H) - STAT [id number] 08:15:00 Test Item Value Reference Range Interpretation Comments HEMOGLOBIN (BEAKER) (test code = 8.8 g/dL 12.0-15.0 L 410) HEMATOCRIT (BEAKER) (test code = 26.0 % 36.0-45.0 L 411) BASIC METABOLIC [id number] 07:37:00 Test Item Value Reference Range Interpretation [...] PATIEN TS. CBC W/PLT COUNT & AUTO [id number] 07:20:00 Test Item Value Reference Range Interpretation [...] PERCENT (BEAKER) (test code = 2801) POCT-GLUCOSE [id number] 07:03:00 Test Item Value Reference Range Interpretation Comments POC-GLUCOSE METER 186 mg/dL 70-110 H TESTED AT [facility] 6720 (BEAKER) (test code = JULIANO Osborne [place] 1538) [address] B-TYPE NATRIURETIC FACTOR (BNP)2017-06-10 12:44:00 Test Item Value Reference Range Interpretation Comments B-TYPE NATRIURETIC PEPTIDE 1264 pg/mL 0-100 H (BEAKER) (test code = 700) [id number] 12:36:00 Test Item Value Reference Range Interpretation Comments MAGNESIUM (BEAKER) (test code = 1.6 mg/dL 1.6-2.6 627) BASIC METABOLIC [id number] 12:36:00 Test Item Value Reference Range Interpretation [...] NOT APPLICABLE FOR DIALYSIS PATIEN TS. POCT-GLUCOSE [id number] 12:04:00 Test Item Value Reference Range Interpretation Comments POC-GLUCOSE METER 274 mg/dL 70-110 H TESTED AT [facility] 6720 (BEAKER) (test code = JULIANO Osborne [place] 1538) [address] POCT-GLUCOSE [id number] 07:21:00 Test Item Value Reference Range Interpretation Comments POC-GLUCOSE METER 137 mg/dL 70-110 H TESTED AT [facility] 6720 (BEAKER) (test code = JULIANO Osborne [place] 1538) [address] BASIC METABOLIC [id number] 05:10:00 Test Item Value Reference Range Interpretation [...] RED BLOOD CELLS 0 /100 WBC 0-0 ([facility]) (test code = 413) POCT-GLUCOSE [id number] 21:23:00 Test Item Value Reference Range Interpretation Comments POC-GLUCOSE METER 240 mg/dL 70-110 H TESTED AT [place] [address] ([facility]) (test code = [facility] 1538) [address] POCT-GLUCOSE [id number] 16:42:00 Test Item Value Reference Range Interpretation Comments POC-GLUCOSE METER 234 mg/dL 70-110 H TESTED AT [place] [address] ([facility]) (test code = [facility] 1538) [address] POCT-GLUCOSE [id number] 13:22:00 Test Item Value Reference Range Interpretation Comments POC-GLUCOSE METER 166 mg/dL 70-110 H TESTED AT [place] [address] ([facility]) (test code = [facility] 1538) [address] RAD, CHEST, 1 VIEW, NON [id number] 09:43:00Reason for exam:->s/p ACBShould this be performed [...] are present. No pneumothorax. Signed: Lynda Ring MDRepsoutheast [facility] Verified Date/Time: 05/31/2017 09:43:30 ReadingLocation: [facility] B1 C013X Ortho Consult Reading Room POCT-GLUCOSE [id number] 06:57:00 Test Item Value Reference Range Interpretation Comments POC-GLUCOSE METER 136 mg/dL 70-110 H TESTED AT [place] [address] ([facility]) (test code = [facility] 1538) [address] CALCIUM, [id number] 06:41:00 Test Item Value Reference Range Interpretation Comments CALCIUM IONIZED (BEAKER) (test 1.10 mmol/L 1.12-1.27 L code = 698) PH, BLOOD (BEAKER) (test code = 7.42 1810) [id number] 06:17:00 Test Item Value Reference Range Interpretation Comments PHOSPHORUS (BEAKER) (test code = 3.3 mg/dL 2.3-4.7 604) [id number] 06:17:00 Test Item Value Reference Range Interpretation Comments MAGNESIUM (BEAKER) (test code = 1.8 mg/dL 1.6-2.6 627) BASIC METABOLIC [id number] 06:17:00 Test Item Value Reference Range Interpretation [...] PATIEN TS. CBC W/PLT COUNT & AUTO [id number] 05:07:00 Test Item Value Reference Range Interpretation [...] PERCENT (BEAKER) (test code = 2801) POCT-GLUCOSE [id number] 20:56:00 Test Item Value Reference Range Interpretation Comments POC-GLUCOSE METER 196 mg/dL 70-110 H TESTED AT [facility] 6720 (BEAKER) (test code = [place] 1538) [address] POCT-GLUCOSE [id number] 16:42:00 Test Item Value Reference Range Interpretation Comments POC-GLUCOSE METER 196 mg/dL 70-110 H TESTED AT [facility] 6720 (BEAKER) (test code = JULIANO Osborne [place] 1538) [address] POCT-GLUCOSE [id number] 11:45:00 Test Item Value Reference Range Interpretation Comments POC-GLUCOSE METER 215 mg/dL 70-110 H TESTED AT [facility] 6720 (BEAKER) (test code = JULIANO Osborne [place] 1538) [address] RAD, CHEST, 1 VIEW, NON [id number] 11:15:00Reason for exam:->s/p ACBShould this be performed at the bedside?->YesFINAL REPORT Chest one view compared to May 28, 2017 Discussion: Airspace opacities are seen in both lower lung regions, probably atelectasis. Correlate clinically for infection. I could not exclude small effusions. No pneumothorax. Upper lungs clear. Signed: Jeannette Nava Verified Date/Time: 05/30/2017 11:15:07 Reading Location: [facility] Radiology Reading Room CALCIUM, [id number] 09:21:00 Test Item Value Reference Range Interpretation Comments CALCIUM IONIZED (BEAKER) (test 1.11 mmol/L 1.12-1.27 L code = 698) PH, BLOOD (BEAKER) (test code = 7.36 1810) BASIC METABOLIC [id number] 07:37:00 Test Item Value Reference Range Interpretation [...] S NOT APPLICABLE FOR DIALYSIS PATIEN TS. [id number] 07:28:00 Test Item Value Reference Range Interpretation Comments PHOSPHORUS (BEAKER) (test code = 3.8 mg/dL 2.3-4.7 604) [id number] 07:28:00 Test Item Value Reference Range Interpretation Comments MAGNESIUM (BEAKER) (test code = 1.9 mg/dL 1.6-2.6 627) CBC W/PLT COUNT & AUTO [id number] 07:26:00 Test Item Value Reference Range Interpretation [...] PERCENT (BEAKER) (test code = 2801) POCT-GLUCOSE [id number] 07:21:00 Test Item Value Reference Range Interpretation Comments POC-GLUCOSE METER 146 mg/dL 70-110 H TESTED AT [place] [address] ([facility]) (test code = [facility] 1538) [address] POCT-GLUCOSE [id number] 22:02:00 Test Item Value Reference Range Interpretation Comments POC-GLUCOSE METER 201 mg/dL 70-110 H TESTED AT [place] [address] ([facility]) (test code = [facility] 1538) [address] POCT-GLUCOSE [id number] 18:27:00 Test Item Value Reference Range Interpretation Comments POC-GLUCOSE METER 240 mg/dL 70-110 H TESTED AT [place] [address] ([facility]) (test code = [facility] 1538) [id number] POCT-GLUCOSE [id number] 12:13:00 Test Item Value Reference Range Interpretation Comments POC-GLUCOSE METER 193 mg/dL 70-110 H TESTED AT [place] [address] ([facility]) (test code = [facility] 1538) [address] POCT-GLUCOSE [id number] 09:02:00 Test Item Value Reference Range Interpretation Comments POC-GLUCOSE METER 132 mg/dL 70-110 H TESTED AT [place] [address] ([facility]) (test code = [facility] 1538) [id number] CALCIUM, [id number] 05:42:00 Test Item Value Reference Range Interpretation Comments CALCIUM IONIZED (BEAKER) (test 1.12 mmol/L 1.12-1.27 code = 698) PH, BLOOD (BEAKER) (test code = 7.34 1810) COMPREHENSIVE METABOLIC [id number] 05:33:00 Test Item Value Reference Range Interpretation [...] S NOT APPLICABLE FOR DIALYSIS PATIEN TS. [id number] 05:32:00 Test Item Value Reference Range Interpretation Comments PHOSPHORUS (BEAKER) (test code = 3.6 mg/dL 2.3-4.7 604) [id number] 05:32:00 Test Item Value Reference Range Interpretation Comments MAGNESIUM (BEAKER) (test code = 2.2 mg/dL 1.6-2.6 627) CBC W/PLT COUNT & AUTO [id number] 05:01:00 Test Item Value Reference Range Interpretation [...] EOSINOPHILS ABSOLUTE COUNT 0.25 K/ L 0.04-0.36 ([facility]) (test code = 416) BASOPHILS ABSOLUTE COUNT ([facility]) 0.03 K/ L 0.01-0.08 (test code = 417) IMMATURE GRANULOCYTES-RELATIVE 1 % 0-1 PERCENT ([facility]) (test code = 2801) POCT-GLUCOSE [id number] 21:04:00 Test Item Value Reference Range Interpretation Comments POC-GLUCOSE METER 165 mg/dL 70-110 H TESTED AT [place] [address] ([facility]) (test code = JULIANO Osborne [facility] 1538) [address] POCT-GLUCOSE [id number] 17:30:00 Test Item Value Reference Range Interpretation Comments POC-GLUCOSE METER 236 mg/dL 70-110 H TESTED AT [place] [address] ([facility]) (test code = [facility] Dylon [facility] 1538) [address] RAD, CHEST, 1 VIEW, NON [id number] 13:53:00Reason for exam:->assess for ill-defined opacityShould this [...] Verified Date/Time: 05/28/2017 13:53:03 Reading Location: [address] Radiology Reading Room POCT-GLUCOSE [id number] 11:53:00 Test Item Value Reference Range Interpretation Comments POC-GLUCOSE METER 215 mg/dL 70-110 H TESTED AT [place] [address] ([facility]) (test code = JULIANO Osborne [facility] 1538) [address] POCT-GLUCOSE [id number] 08:32:00 Test Item Value Reference Range Interpretation Comments POC-GLUCOSE METER 168 mg/dL 70-110 H TESTED AT [facility] 6720 (BEAKER) (test code = [place]IANO [place] 1538) [address] CALCIUM, [id number] 05:44:00 Test Item Value Reference Range Interpretation Comments CALCIUM IONIZED (BEAKER) (test 1.09 mmol/L 1.12-1.27 L code = 698) PH, BLOOD (BEAKER) (test code = 7.38 1810) [id number] 05:44:00 Test Item Value Reference Range Interpretation Comments PHOSPHORUS (BEAKER) (test code = 3.5 mg/dL 2.3-4.7 604) [id number] 05:44:00 Test Item Value Reference Range Interpretation Comments MAGNESIUM (BEAKER) (test code = 1.9 mg/dL 1.6-2.6 627) BASIC METABOLIC [id number] 05:44:00 Test Item Value Reference Range Interpretation [...] PATIEN TS. CBC W/PLT COUNT & AUTO [id number] 05:05:00 Test Item Value Reference Range Interpretation [...] PERCENT (BEAKER) (test code = 2801) POCT-GLUCOSE [id number] 21:03:00 Test Item Value Reference Range Interpretation Comments POC-GLUCOSE METER 173 mg/dL 70-110 H TESTED AT [place] [address] ([facility]) (test code = JLUIANO Osborne [facility] 1538) [address] [id number] 18:15:00 Test Item Value Reference Range Interpretation Comments ACTIVATED CLOTTING TIME 147 sec TEST ED AT [place] [address] ([facility]) (test code = JULIANO Osborne [facility] 441) [address] [id number] 18:15:00 Test Item Value Reference Range Interpretation Comments ACTIVATED CLOTTING TIME 246 sec TEST ED AT [place] [address] ([facility]) (test code = JULIANO Osborne [facility] 441) [address] POCT-GLUCOSE [id number] 12:39:00 Test Item Value Reference Range Interpretation Comments POC-GLUCOSE METER 219 mg/dL 70-110 H TESTED AT [place] [address] ([facility]) (test code = JULIANO Osborne [facility] 1538) [address] RAD, CHEST, 1 VIEW, NON [id number] 10:11:00Reason for exam:->pl effusionShould this be performed at the bedside?->YesFINAL REPORT Chest one view compared to May 26 Discussion: There is cardiac prominence. Upper lungs are clear. Ill-defined basilar densities are similar probably atelectasis. No gross effusion or pneumothorax with bilateral chest tubes in place. Signed: Jeannette Nava Verified Date/Time: 05/27/2017 10:11:44 Reading Location: [facility] Radiology Reading Room POCT-GLUCOSE METER 2017-05-27 07:05:00 Test Item Value Reference Range Interpretation Comments POC-GLUCOSE METER 167 mg/dL 70-110 H TESTED AT [place] [address] ([facility]) (test code = JULIANO Osborne [facility] 1538) [address] CALCIUM, [id number] 06:20:00 Test Item Value Reference Range Interpretation Comments CALCIUM IONIZED ([facility]) (test 0.98 mmol/L 1.12-1.27 L code = 698) PH, BLOOD ([facility]) (test code = 7.50 1810) [id number] 04:56:00 Test Item Value Reference Range Interpretation Comments PHOSPHORUS (AKER) (test code = 2.6 mg/dL 2.3-4.7 604) [id number] 04:56:00 Test Item Value Reference Range Interpretation Comments MAGNESIUM (BEAKER) (test code = 2.0 mg/dL 1.6-2.6 627) BASIC METABOLIC [id number] 04:56:00 Test Item Value Reference Range Interpretation [...] PATIEN TS. CBC W/PLT COUNT & AUTO [id number] 04:36:00 Test Item Value Reference Range Interpretation [...] PERCENT (BEAKER) (test code = 2801) POCT-GLUCOSE [id number] 21:29:00 Test Item Value Reference Range Interpretation Comments POC-GLUCOSE METER 147 mg/dL 70-110 H TESTED AT [facility] 67 [facility] [place] 1538) [address] POCT-GLUCOSE [id number] 17:51:00 Test Item Value Reference Range Interpretation Comments POC-GLUCOSE METER 224 mg/dL 70-110 H TESTED AT [facility] 6720 (BEAKER) (test code = [facility] Dylon [place] 1538) [address] POCT-GLUCOSE [id number] 13:53:00 Test Item Value Reference Range Interpretation Comments POC-GLUCOSE METER 182 mg/dL 70-110 H TESTED AT [facility] 6720 ([facility]) (test code = JULIANO Osborne [facility] 1538) [address] RAD, CHEST, 1 VIEW, NON [id number] 08:44:00Reason for exam:->pl effusionShould this be performed [...] MDReport Verified Date/Time: 05/26/2017 08:44:25 Reading Location: [address] Radiology Reading Room POCT- GLUCOSE [id number] 07:43:00 Test Item Value Reference Range Interpretation Comments POC-GLUCOSE METER 113 mg/dL 70-110 H TESTED AT [place] [address] ([facility]) (test code = JULIANO Osborne [facility] 1538) [address] CALCIUM, [id number] 06:31:00 Test Item Value Reference Range Interpretation Comments CALCIUM IONIZED (BEAKER) (test 1.07 mmol/L 1.12-1.27 L code = 698) PH, BLOOD (BEAKER) (test code = 7.38 1810) [id number] 04:51:00 Test Item Value Reference Range Interpretation Comments PHOSPHORUS (BEAKER) (test code = 3.2 mg/dL 2.3-4.7 604) [id number] 04:51:00 Test Item Value Reference Range Interpretation Comments MAGNESIUM (BEAKER) (test code = 2.1 mg/dL 1.6-2.6 627) BASIC METABOLIC [id number] 04:51:00 Test Item Value Reference Range Interpretation [...] PATIEN TS. CBC W/PLT COUNT & AUTO [id number] 04:27:00 Test Item Value Reference Range Interpretation [...] PERCENT (BEAKER) (test code = 2801) POCT-GLUCOSE [id number] 23:48:00 Test Item Value Reference Range Interpretation Comments POC-GLUCOSE METER 123 mg/dL 70-110 H TESTED AT [place] [address] (BEAKER) ([facility] = [facility] 1538) [address] POCT-GLUCOSE [id number] 16:46:00 Test Item Value Reference Range Interpretation Comments POC-GLUCOSE METER 178 mg/dL 70-110 H TESTED AT [place] [address] (BEAKER) (test code = [facility] Dylon [facility] 1538) [address] BASIC METABOLIC [id number] 05:53:00 Test Item Value Reference Range Interpretation [...] S NOT APPLICABLE FOR DIALYSIS PATIEN TS. [id number] 05:52:00 Test Item Value Reference Range Interpretation Comments PHOSPHORUS (BEAKER) (test code = 4.2 mg/dL 2.3-4.7 604) [id number] 05:52:00 Test Item Value Reference Range Interpretation Comments MAGNESIUM (BEAKER) (test code = 2.3 mg/dL 1.6-2.6 627) CALCIUM, [id number] 05:27:00 Test Item Value Reference Range Interpretation Comments CALCIUM IONIZED (BEAKER) (test 1.12 mmol/L 1.12-1.27 code = 698) PH, BLOOD (BEAKER) (test code = 7.38 1810) CBC W/PLT COUNT & AUTO [id number] 05:07:00 Test Item Value Reference Range Interpretation [...] = 2801) RAD, CHEST, 1 VIEW, NON [id number] 04:45:00Reason for exam:->pl effusionShould this be performed at the bedside?->YesFINAL REPORT RAD, CHEST, 1 VIEW, NON DEPT INDICATION: pl effusion COMPARISON:Prior day's exam FINDINGS: Portable frontal view of the chest. IMPRESSION: Support Lines: Stable.Lungs and pleura: Unchanged airspace and pleural opacities. No pneumothorax.Heart and mediastinum: Stable contours. Stable surgical changes.Additional findings: None. Signed: JR Boswell Robert MDReport Verified Date/Time: 05/25/2017 04:45:08 Reading Location: [facility] C013Y CT Body Reading Room POCT-GLUCOSE [id number] 01:52:00 Test Item Value Reference Range Interpretation Comments POC-GLUCOSE METER 126 mg/dL 70-110 H TESTED AT [facility] 6720 (BEAKER) (test code = [place]IANO [place] 1538) [address] POCT-GLUCOSE [id number] 13:07:00 Test Item Value Reference Range Interpretation Comments POC-GLUCOSE METER 118 mg/dL 70-110 H TESTED AT [facility] 6720 (BEAKER) (test code = [place]ULIANO [place] 1538) [address] BRONCHIAL CULTURE + GRAM [id number] 11:35:00 Test Item Value Reference Range Interpretation [...] <1+ gram (BEAKER) (test code = positive 312875) cocci in pairs GRAM STAIN RESULT 1+ gram (BEAKER) (test code = variable rods 045444) 1+ Normal respiratory todd presentRAD, CHEST, 1 VIEW, NON [id number] 06:50:00Reason for exam:->pl effusionShould this be performed at the bedside?->YesFINAL REPORT RAD, CHEST, 1 VIEW, NON DEPT INDICATION: pl effusion COMPARISON:Prior day's exam FINDINGS: Portable frontal view of the chest. IMPRESSION: Support Lines: Stable.Lungs and pleura: Unchanged airspace and pleural opacities. No pneumothorax.Heart and mediastinum: Stable contours. Stable surgical changes.Additional findings: None. Signed: JR Elbert, eKlly Bettencourt Verified Date/Time: 05/24/2017 06:50:08 Reading Location: [place] [address]Y CT Body Reading Room BASIC METABOLIC [id number] 04:19:00 Test Item Value Reference Range Interpretation [...] NOT APPLICABLE FOR DIALYSIS PATIEN TS. CALCIUM, [id number] 04:16:00 Test Item Value Reference Range Interpretation Comments CALCIUM IONIZED (BEAKER) (test 1.06 mmol/L 1.12-1.27 L code = 698) PH, BLOOD (BEAKER) (test code = 7.40 1810) [id number] 04:11:00 Test Item Value Reference Range Interpretation Comments PHOSPHORUS (BEAKER) (test code = 6.0 mg/dL 2.3-4.7 H 604) [id number] 04:11:00 Test Item Value Reference Range Interpretation Comments MAGNESIUM (BEAKER) (test code = 2.4 mg/dL 1.6-2.6 627) CBC W/PLT COUNT & AUTO [id number] 03:50:00 Test Item Value Reference Range Interpretation [...] PERCENT (BEAKER) (test code = 2801) POCT-GLUCOSE [id number] 20:45:00 Test Item Value Reference Range Interpretation Comments POC-GLUCOSE METER 143 mg/dL 70-110 H TESTED AT [facility] 6720 ([facility]) ([facility] = [facility] 1538) [address] POCT-GLUCOSE [id number] 20:45:00 Test Item Value Reference Range Interpretation Comments POC-GLUCOSE METER 145 mg/dL 70-110 H TESTED AT [facility] 67 ([facility]) (test code = [facility] 1538) [address] [id number] 13:37:00 Test Item Value Reference Range Interpretation Comments PREALBUMIN (BEAKER) 10 mg/dL 14-45 L Specimen slightly (test code = 586) hemolyzed OXYGEN SATURATION, [id number] 12:31:00 Test Item Value Reference Range Interpretation Comments O2 SATURATION (MEASURED) (BEAKER) 94.5 % (test code = 1455) [id number] 11:02:00 Test Item Value Reference Range Interpretation Comments PREALBUMIN (BEAKER) (test code = 10 mg/dL 14-45 L 586) RAD, CHEST, 1 VIEW, NON [id number] 05:14:00while patient is intubated or has chest [...] Signed: JR Elbert, Kelly ALEXANDREeport Verified Date/Time: 05/23/2017 05:14:04 Reading Location: [facility] C013Y CT Body Reading Room BASIC METABOLIC [id number] 03:48:00 Test Item Value Reference Range Interpretation [...] S NOT APPLICABLE FOR DIALYSIS PATIEN TS. [id number] 03:46:00 Test Item Value Reference Range Interpretation Comments MAGNESIUM (BEAKER) 2.4 mg/dL 1.6-2.6 Specimen slightly (test code = 627) hemolyzed [id number] 03:46:00 Test Item Value Reference Range Interpretation Comments PHOSPHORUS (BEAKER) 6.5 mg/dL 2.3-4.7 H Specimen slightly (test code = 604) hemolyzed CBC W/PLT COUNT & AUTO [id number] 03:26:00 Test Item Value Reference Range Interpretation [...] (BEAKER) (test code = 2801) BLOOD GAS, [id number] 03:18:00 Test Item Value Reference Range Interpretation [...] (test code = 1819) 36.0 % CALCIUM, [id number] 16:32:00 Test Item Value Reference Range Interpretation Comments CALCIUM IONIZED (BEAKER) (test 1.11 mmol/L 1.12-1.27 L code = 698) PH, BLOOD (BEAKER) (test code = 7.39 1810) BASIC METABOLIC [id number] 15:43:00 Test Item Value Reference Range Interpretation [...] NOT APPLICABLE FOR DIALYSIS PATIEN TS. POCT-GLUCOSE [id number] 12:53:00 Test Item Value Reference Range Interpretation Comments POC-GLUCOSE METER 118 mg/dL 70-110 H TESTED AT [facility] 6720 ([facility]) (test code = JULIANO Osborne [facility] 1538) [address] BLOOD GAS, [id number] 10:42:00 Test Item Value Reference Range Interpretation [...] (test code = 1819) 40.0 % POCT-GLUCOSE [id number] 06:46:00 Test Item Value Reference Range Interpretation Comments POC-GLUCOSE METER 106 mg/dL 70-110 TESTED AT [place] [address] ([facility]) (test code = JULIANO Osborne [facility] 1538) [address] RAD, CHEST, 1 VIEW, NON [id number] 05:05:00while patient is intubated or has chest [...] MDReport Verified Date/Time: 05/22/2017 05:05:00 Reading Location: [address] Body ReadingRoom BASIC METABOLIC [id number] 05:00:00 Test Item Value Reference Range Interpretation [...] S NOT APPLICABLE FOR DIALYSIS PATIEN TS. [id number] 04:41:00 Test Item Value Reference Range Interpretation Comments PHOSPHORUS (BEAKER) (test code = 6.4 mg/dL 2.3-4.7 H 604) [id number] 04:41:00 Test Item Value Reference Range Interpretation Comments MAGNESIUM (BEAKER) (test code = 2.6 mg/dL 1.6-2.6 627) CALCIUM, [id number] 04:26:00 Test Item Value Reference Range Interpretation Comments CALCIUM IONIZED (BEAKER) (test 1.09 mmol/L 1.12-1.27 L code = 698) PH, BLOOD (BEAKER) (test code = 7.40 1810) OXYGEN SATURATION, [id number] 04:25:00 Test Item Value Reference Range Interpretation Comments O2 SATURATION (MEASURED) (BEAKER) 77.0 % (test code = 1455) CBC W/PLT COUNT & AUTO [id number] 04:17:00 Test Item Value Reference Range Interpretation [...] code = 2801) LACTIC ACID, ARTERIAL, WHOLE [id number] 00:07:00 Test Item Value Reference Range Interpretation Comments LACTATE BLOOD 1.0 mmol/L 0.5-2.2 Specimen sligh tly ARTERIAL (2) (BEAKER) hemoly zed (test code = 2874) Effective 08/02/2015: Units/Reference Range ChangeNew: 0.5-2.2 mmol/L Previous: 5-20 mg/dLPOCT-GLUCOSE [id number] 23:47:00 Test Item Value Reference Range Interpretation Comments POC-GLUCOSE METER 180 mg/dL 70-110 H TESTED AT [facility] 6720 (BEAKER) (test code = [place] 1538) [address] BLOOD GAS, [id number] 23:46:00 Test Item Value Reference Range Interpretation [...] code = 1819) 100.0 % SODIUM NA-STAT [id number] 23:46:00 Test Item Value Reference Range Interpretation Comments SODIUM (BEAKER) (test code = 381) 134 meq/L 135-148 L GLUCOSE-STAT [id number] 23:46:00 Test Item Value Reference Range Interpretation Comments GLUCOSE RANDOM (BEAKER) (test code 119 mg/dL 70-110 H = 652) HGB/HCT (H&H) - STAT [id number] 23:46:00 Test Item Value Reference Range Interpretation Comments HEMOGLOBIN (BEAKER) (test code = 8.8 g/dL 12.0-15.0 L 410) HEMATOCRIT (BEAKER) (test code = 26.0 % 36.0-45.0 L 411) OXYGEN SATURATION, [id number] 23:45:00 Test Item Value Reference Range Interpretation Comments O2 SATURATION (MEASURED) (BEAKER) 68.1 % (test code = 1455) POTASSIUM-STAT [id number] 23:45:00 Test Item Value Reference Range Interpretation Comments POTASSIUM ([facility]) (test code = 5.5 meq/L 3.6-5.5 379) POCT-GLUCOSE [id number] 20:58:00 Test Item Value Reference Range Interpretation Comments POC-GLUCOSE METER 133 mg/dL 70-110 H TESTED AT [place] [address] ([facility]) (test code = JULIANO Osborne [facility] 1538) [address] POCT-GLUCOSE [id number] 17:58:00 Test Item Value Reference Range Interpretation Comments POC-GLUCOSE METER 210 mg/dL 70-110 H TESTED AT [place] [address] ([facility]) (test code = [facility] Dylon [facility] 1538) [address] POCT-GLUCOSE [id number] 17:58:00 Test Item Value Reference Range Interpretation Comments POC-GLUCOSE METER 211 mg/dL 70-110 H TESTED AT [place] [address] ([facility]) (test code = [facility] Dylon [facility] 1538) [address] POCT-GLUCOSE [id number] 17:58:00 Test Item Value Reference Range Interpretation Comments POC-GLUCOSE METER 232 mg/dL 70-110 H TESTED AT [place] [address] ([facility]) (test code = [facility] Dylon [facility] 1538) [address] POCT-GLUCOSE [id number] 17:58:00 Test Item Value Reference Range Interpretation Comments POC-GLUCOSE METER 262 mg/dL 70-110 H TESTED AT [place] [address] ([facility]) (test code = [facility] Dylon [facility] 1538) [address] BLOOD GAS, [id number] 17:01:00 Test Item Value Reference Range Interpretation Comments PH ARTERIAL ([facility]) (test code = 7.38 7.35-7.45 383) PCO2 ARTERIAL ([facility]) (test code 39 mmHg 35-45 = 384) PO2 ARTERIAL ([facility]) (test code 75 mmHg 80-90 L = 385) O2 SATURATION ARTERIAL ([facility]) 94.9 % 96.0-97.0 L (test code = 386) HCO3 ARTERIAL ([facility]) (test code 23 mmol/L 21-29 = 388) BASE EXCESS ARTERIAL ([facility]) -2.5 mmol/L -2.0-3.0 L (test code = 387) PATIENT TEMPERATURE (BEAKER) 36.8 C (test code = 1818) FIO2 (BEAKER) (test code = 1819) 60.0 % POTASSIUM-STAT [id number] 17:00:00 Test Item Value Reference Range Interpretation Comments POTASSIUM (BEAKER) (test code = 4.8 meq/L 3.6-5.5 379) POCT-GLUCOSE [id number] 15:52:00 Test Item Value Reference Range Interpretation Comments POC-GLUCOSE METER 267 mg/dL 70-110 H TESTED AT [facility] 6720 (BEAKER) (test code = JULIANO Osborne [place] 1538) [address] POCT-GLUCOSE [id number] 14:42:00 Test Item Value Reference Range Interpretation Comments POC-GLUCOSE METER 231 mg/dL 70-110 H TESTED AT [facility] 6720 (BEAKER) (test code = JULIANO Osborne [facility] 1538) [address] BODY FLUID CELL COUNT WITH [id number] 14:41:00 Test Item Value Reference Range Interpretation [...] Tube (test code = 2873) BASIC METABOLIC [id number] 14:11:00 Test Item Value Reference Range Interpretation [...] S NOT APPLICABLE FOR DIALYSIS PATIEN TS. [id number] 14:08:00 Test Item Value Reference Range Interpretation Comments PHOSPHORUS (BEAKER) (test code = 7.2 mg/dL 2.3-4.7 H 604) [id number] 14:08:00 Test Item Value Reference Range Interpretation Comments MAGNESIUM (BEAKER) (test code = 2.6 mg/dL 1.6-2.6 627) POCT-GLUCOSE [id number] 12:49:00 Test Item Value Reference Range Interpretation Comments POC-GLUCOSE METER 224 mg/dL 70-110 H TESTED AT [place] [address] ([facility]) (test code = [facility] 1538) [address] POCT-GLUCOSE [id number] 12:49:00 Test Item Value Reference Range Interpretation Comments POC-GLUCOSE METER 248 mg/dL 70-110 H TESTED AT [place] [address] ([facility]) (test code = [facility] 1538) [address] RAD, CHEST, 1 VIEW, NON [id number] 12:32:00Reason for exam:->re-intubationShould this be performed at [...] MDReport Verified Date/Time: 05/21/2017 12:32:08 [facility] POTASSIUM-STAT [id number] 12:28:00 Test Item Value Reference Range Interpretation Comments POTASSIUM (BEAKER) (test code = 5.5 meq/L 3.6-5.5 379) BLOOD GAS, [id number] 12:28:00 Test Item Value Reference Range Interpretation [...] code = 1819) 100.0 % BLOOD GAS, [id number] 10:53:00 Test Item Value Reference Range Interpretation [...] 36.0 % RAD, CHEST, 1 VIEW, NON [id number] 08:46:00while patient is intubated or has chest [...] apical pneumothorax is suspected. Signed: Mona White MDRepsoutheast [facility] Verified Date/Time: 05/21/2017 08:46:27 Reading Location: [facility] Radiology Reading Room BLOOD GAS, [id number] 05:41:00 Test Item Value Reference Range Interpretation [...] (BEAKER) (test code = 1819) 40 CALCIUM, [id number] 04:35:00 Test Item Value Reference Range Interpretation Comments CALCIUM IONIZED (BEAKER) (test 1.13 mmol/L 1.12-1.27 code = 698) PH, BLOOD (BEAKER) (test code = 7.32 1810) BLOOD GAS, [id number] 04:28:00 Test Item Value Reference Range Interpretation [...] (BEAKER) (test code = 1819) 40.0 % [id number] 04:20:00 Test Item Value Reference Range Interpretation Comments PHOSPHORUS (BEAKER) (test code = 6.2 mg/dL 2.3-4.7 H 604) [id number] 04:20:00 Test Item Value Reference Range Interpretation Comments MAGNESIUM (BEAKER) (test code = 2.4 mg/dL 1.6-2.6 627) HEPATIC FUNCTION [id number] 04:20:00 Test Item Value Reference Range Interpretation [...] = 11 U/L 6-55 347) BASIC METABOLIC [id number] 04:20:00 Test Item Value Reference Range Interpretation [...] APPLICABLE FOR DIALYSIS PATIEN TS. OXYGEN SATURATION, [id number] 04:18:00 Test Item Value Reference Range Interpretation Comments O2 SATURATION (MEASURED) (BEAKER) 68.0 % (test code = 1455) LACTIC ACID, ARTERIAL, WHOLE [id number] 04:12:00 Test Item Value Reference Range Interpretation Comments LACTATE BLOOD ARTERIAL (2) 1.0 mmol/L 0.5-2.2 (BEAKER) (test code = 2874) Effective 08/02/2015: Units/Reference Range ChangeNew: 0.5-2.2 mmol/L Previous: 5-20 mg/dLCBC W/PLT COUNT & AUTO [id number] 04:00:00 Test Item Value Reference Range Interpretation [...] (BEAKER) (test code = 2801) BLOOD GAS, [id number] 00:06:00 Test Item Value Reference Range Interpretation [...] (BEAKER) (test code = 1819) 40.0 % [id number] 18:55:00 Test Item Value Reference Range Interpretation Comments PHOSPHORUS (BEAKER) (test code = 4.8 mg/dL 2.3-4.7 H 604) [id number] 18:55:00 Test Item Value Reference Range Interpretation Comments MAGNESIUM (BEAKER) (test code = 2.3 mg/dL 1.6-2.6 627) BASIC METABOLIC [id number] 18:55:00 Test Item Value Reference Range Interpretation [...] DIALYSIS PATIEN TS. LACTIC ACID, ARTERIAL, WHOLE [id number] 18:53:00 Test Item Value Reference Range Interpretation Comments LACTATE BLOOD 0.9 mmol/L 0.5-2.2 Specimen sligh tly ARTERIAL (2) (BEAKER) hemoly zed (test code = 2874) Effective 08/02/2015: Units/Reference Range ChangeNew: 0.5-2.2 mmol/L Previous: 5-20 mg/dLRAD, CHEST, 1 VIEW, NON [id number] 18:44:00Reason for exam:- >postop cardiacShould this be [...] MDReport Verified Date/Time: 05/20/2017 18:44:30 Reading Location: [facility] [id number] Consult Reading Room Electronically signed by: MIGUEL BHAKTA M.D. on05/20/2017 06:44 PMCBC W/PLT COUNT & AUTO [id number] 18:38:00 Test Item Value Reference Range Interpretation [...] (BEAKER) (test code = 2801) OXYGEN SATURATION, [id number] 18:36:00 Test Item Value Reference Range Interpretation Comments O2 SATURATION (MEASURED) (BEAKER) 72.5 % (test code = 1455) From distal port of IJ central venous catheterSODIUM NA-STAT [id number] 18:30:00 Test Item Value Reference Range Interpretation Comments SODIUM (BEAKER) (test code = 381) 132 meq/L 135-148 L HGB/HCT (H&H) - STAT [id number] 18:30:00 Test Item Value Reference Range Interpretation Comments HEMOGLOBIN (BEAKER) (test code = 9.4 g/dL 12.0-15.0 L 410) HEMATOCRIT (BEAKER) (test code = 28.0 % 36.0-45.0 L 411) GLUCOSE-STAT [id number] 18:30:00 Test Item Value Reference Range Interpretation Comments GLUCOSE RANDOM (BEAKER) (test code 159 mg/dL 70-110 H = 652) BLOOD GAS, [id number] 18:30:00 Test Item Value Reference Range Interpretation [...] (test code = 1819) 60.0 % CALCIUM, [id number] 18:30:00 Test Item Value Reference Range Interpretation Comments CALCIUM IONIZED (BEAKER) (test 0.94 mmol/L 1.12-1.27 L code = 698) PH, BLOOD (BEAKER) (test code = 7.34 1810) POTASSIUM-STAT [id number] 18:28:00 Test Item Value Reference Range Interpretation [...] 55.0-65.0 (test code = 1413) [facility] FIBRINOLYSIS ([facility]) (test 0.0 % 0.0-5.0 code = 1414) [id number] 17:53:00 Test Item Value Reference Range Interpretation Comments ACTIVATED CLOTTING TIME 103 sec TEST ED AT [place] [address] ([facility]) (test code = [place] [address]) [address] [id number] 17:53:00 Test Item Value Reference Range Interpretation Comments ACTIVATED CLOTTING TIME 466 sec TEST ED AT [place] [address] ([facility]) (test code = [place] [address]) [address] [id number] 17:53:00 Test Item Value Reference Range Interpretation Comments ACTIVATED CLOTTING TIME 543 sec TEST ED AT [place] [address] ([facility]) (test code = [place]ANO [place] [address]) [address] [id number] 17:53:00 Test Item Value Reference Range Interpretation Comments ACTIVATED CLOTTING TIME 549 sec TEST ED AT [place] [address] ([facility]) (test code = [place] [address]) [address] [id number] 17:53:00 Test Item Value Reference Range Interpretation Comments ACTIVATED CLOTTING TIME 632 sec TEST ED AT [place] [address] ([facility]) (test code = [place] [address]) [address] [id number] 17:53:00 Test Item Value Reference Range Interpretation Comments ACTIVATED CLOTTING TIME 494 sec TEST ED AT [place] [address] ([facility]) (test code = [place] [address]) [address] [id number] 17:53:00 Test Item Value Reference Range Interpretation Comments ACTIVATED CLOTTING TIME 587 sec TEST ED AT [place] [address] ([facility]) (test code = [place] [address]) [address] [id number] 17:53:00 Test Item Value Reference Range Interpretation Comments ACTIVATED CLOTTING TIME 626 sec TEST ED AT [place] [address] ([facility]) (test code = [place] [address]) [address] [id number] 17:52:00 Test Item Value Reference Range Interpretation Comments ACTIVATED CLOTTING TIME 808 sec TEST ED AT [facility] 6720 (BEAKER) (test code = [place] [address]) [address] [id number] 16:54:00 Test Item Value Reference Range Interpretation Comments PARTIAL THROMBOPLASTIN TIME 40.2 seconds 22.5-36.0 H (BEAKER) (test code = 760) [id number] 16:53:00 Test Item Value Reference Range Interpretation Comments FIBRINOGEN LEVEL (BEAKER) (test 306 mg/dl 225-434 code = 658) PROTHROMBIN [id number] 16:50:00 Test Item Value Reference Range Interpretation Comments PROTIME (BEAKER) (test code = 19.6 seconds 11.7-14.7 H 759) INR (BEAKER) (test code = 370) 1.7 <=5.9 RECOMMENDED COUMADIN/WARFARIN INR THERAPY RANGESSTANDARD DOSE: 2.0 - 3.0 Includes: PROPHYLAXIS forvenous thrombosis, systemic embolization; TREATMENT for venous thrombosis and/or pulmonary embolus.HIGH RISK: Target INR is 2.5-3.5 for patients with mechanical heart valves.PLATELET [id number] 16:45:00 Test Item Value Reference Range Interpretation Comments PLATELET COUNT (BEAKER) (test 136 K/CU MM 150-450 L code = 756) POTASSIUM-STAT [id number] 16:15:00 Test Item Value Reference Range Interpretation Comments POTASSIUM (BEAKER) (test code = 4.9 meq/L 3.6-5.5 379) BLOOD GAS, [id number] 16:15:00 Test Item Value Reference Range Interpretation [...] code = 1819) 100.0 % SODIUM NA-STAT [id number] 16:15:00 Test Item Value Reference Range Interpretation Comments SODIUM (BEAKER) (test code = 381) 131 meq/L 135-148 L GLUCOSE-STAT [id number] 16:15:00 Test Item Value Reference Range Interpretation Comments GLUCOSE RANDOM (BEAKER) (test code 198 mg/dL 70-110 H = 652) HGB/HCT (H&H) - STAT [id number] 16:15:00 Test Item Value Reference Range Interpretation Comments HEMOGLOBIN (BEAKER) (test code = 7.5 g/dL 12.0-15.0 L 410) HEMATOCRIT (BEAKER) (test code = 22.0 % 36.0-45.0 L 411) CALCIUM, [id number] 16:14:00 Test Item Value Reference Range Interpretation Comments CALCIUM IONIZED (BEAKER) (test 0.91 mmol/L 1.12-1.27 L code = 698) PH, BLOOD (BEAKER) (test code = 7.39 1810) BLOOD GAS, [id number] 15:39:00 Test Item Value Reference Range Interpretation [...] code = 1819) 70.0 % SODIUM NA-STAT [id number] 15:39:00 Test Item Value Reference Range Interpretation Comments SODIUM (BEAKER) (test code = 381) 131 meq/L 135-148 L GLUCOSE-STAT [id number] 15:39:00 Test Item Value Reference Range Interpretation Comments GLUCOSE RANDOM (BEAKER) (test code 186 mg/dL 70-110 H = 652) HGB/HCT (H&H) - STAT [id number] 15:39:00 Test Item Value Reference Range Interpretation Comments HEMOGLOBIN (BEAKER) (test code = 7.5 g/dL 12.0-15.0 L 410) HEMATOCRIT (BEAKER) (test code = 22.0 % 36.0-45.0 L 411) POTASSIUM-STAT [id number] 15:38:00 Test Item Value Reference Range Interpretation Comments POTASSIUM (BEAKER) (test code = 5.3 meq/L 3.6-5.5 379) BLOOD GAS, [id number] 15:24:00 Test Item Value Reference Range Interpretation [...] code = 1819) 70.0 % SODIUM NA-STAT [id number] 15:24:00 Test Item Value Reference Range Interpretation Comments SODIUM (BEAKER) (test code = 381) 130 meq/L 135-148 L GLUCOSE-STAT [id number] 15:24:00 Test Item Value Reference Range Interpretation Comments GLUCOSE RANDOM (BEAKER) (test code 189 mg/dL 70-110 H = 652) HGB/HCT (H&H) - STAT [id number] 15:24:00 Test Item Value Reference Range Interpretation Comments HEMOGLOBIN (BEAKER) (test code = 6.7 g/dL 12.0-15.0 L 410) HEMATOCRIT (BEAKER) (test code = 20.0 % 36.0-45.0 L 411) POTASSIUM-STAT [id number] 15:23:00 Test Item Value Reference Range Interpretation Comments POTASSIUM (BEAKER) (test code = 5.4 meq/L 3.6-5.5 379) BLOOD GAS, [id number] 15:07:00 Test Item Value Reference Range Interpretation [...] code = 1819) 70.0 % SODIUM NA-STAT [id number] 15:07:00 Test Item Value Reference Range Interpretation Comments SODIUM (BEAKER) (test code = 381) 129 meq/L 135-148 L GLUCOSE-STAT [id number] 15:07:00 Test Item Value Reference Range Interpretation Comments GLUCOSE RANDOM (BEAKER) (test code 172 mg/dL 70-110 H = 652) HGB/HCT (H&H) - STAT [id number] 15:07:00 Test Item Value Reference Range Interpretation Comments HEMOGLOBIN (BEAKER) (test code = 7.1 g/dL 12.0-15.0 L 410) HEMATOCRIT (BEAKER) (test code = 21.0 % 36.0-45.0 L 411) POTASSIUM-STAT [id number] 15:04:00 Test Item Value Reference Range Interpretation Comments POTASSIUM (BEAKER) (test code = 5.0 meq/L 3.6-5.5 379) BLOOD GAS, [id number] 14:21:00 Test Item Value Reference Range Interpretation [...] code = 1819) 70.0 % SODIUM NA-STAT [id number] 14:21:00 Test Item Value Reference Range Interpretation Comments SODIUM (BEAKER) (test code = 381) 133 meq/L 135-148 L GLUCOSE-STAT [id number] 14:21:00 Test Item Value Reference Range Interpretation Comments GLUCOSE RANDOM (BEAKER) (test code 160 mg/dL 70-110 H = 652) HGB/HCT (H&H) - STAT [id number] 14:21:00 Test Item Value Reference Range Interpretation Comments HEMOGLOBIN (BEAKER) (test code = 7.5 g/dL 12.0-15.0 L 410) HEMATOCRIT (BEAKER) (test code = 22.0 % 36.0-45.0 L 411) POTASSIUM-STAT [id number] 14:20:00 Test Item Value Reference Range Interpretation Comments POTASSIUM (BEAKER) (test code = 4.7 meq/L 3.6-5.5 379) BLOOD GAS, [id number] 13:58:00 Test Item Value Reference Range Interpretation [...] code = 1819) 80.0 % SODIUM NA-STAT [id number] 13:58:00 Test Item Value Reference Range Interpretation Comments SODIUM (BEAKER) (test code = 381) 132 meq/L 135-148 L GLUCOSE-STAT [id number] 13:58:00 Test Item Value Reference Range Interpretation Comments GLUCOSE RANDOM (BEAKER) (test code 166 mg/dL 70-110 H = 652) HGB/HCT (H&H) - STAT [id number] 13:58:00 Test Item Value Reference Range Interpretation Comments HEMOGLOBIN (BEAKER) (test code = 7.5 g/dL 12.0-15.0 L 410) HEMATOCRIT (BEAKER) (test code = 22.0 % 36.0-45.0 L 411) POTASSIUM-STAT [id number] 13:57:00 Test Item Value Reference Range Interpretation Comments POTASSIUM (BEAKER) (test code = 4.7 meq/L 3.6-5.5 379) BLOOD GAS, [id number] 13:35:00 Test Item Value Reference Range Interpretation [...] (test code = 1819) 80.0 % GLUCOSE-STAT [id number] 13:35:00 Test Item Value Reference Range Interpretation Comments GLUCOSE RANDOM (BEAKER) (test code 130 mg/dL 70-110 H = 652) HGB/HCT (H&H) - STAT [id number] 13:35:00 Test Item Value Reference Range Interpretation Comments HEMOGLOBIN (BEAKER) (test code = 6.7 g/dL 12.0-15.0 L 410) HEMATOCRIT (BEAKER) (test code = 20.0 % 36.0-45.0 L 411) SODIUM NA-STAT [id number] 13:35:00 Test Item Value Reference Range Interpretation Comments SODIUM (BEAKER) (test code = 381) 133 meq/L 135-148 L POTASSIUM-STAT [id number] 13:34:00 Test Item Value Reference Range Interpretation Comments POTASSIUM (BEAKER) (test code = 4.2 meq/L 3.6-5.5 379) BLOOD GAS, [id number] 13:16:00 Test Item Value Reference Range Interpretation [...] code = 1819) 80.0 % SODIUM NA-STAT [id number] 13:16:00 Test Item Value Reference Range Interpretation Comments SODIUM (BEAKER) (test code = 381) 133 meq/L 135-148 L HGB/HCT (H&H) - STAT [id number] 13:16:00 Test Item Value Reference Range Interpretation Comments HEMOGLOBIN (BEAKER) (test code = 6.3 g/dL 12.0-15.0 L 410) HEMATOCRIT (BEAKER) (test code = 19.0 % 36.0-45.0 L 411) CALCIUM, [id number] 13:15:00 Test Item Value Reference Range Interpretation Comments CALCIUM IONIZED (BEAKER) (test 0.98 mmol/L 1.12-1.27 L code = 698) PH, BLOOD (BEAKER) (test code = 7.34 1810) BLOOD GAS, [id number] 13:15:00 Test Item Value Reference Range Interpretation [...] (test code = 1819) 80.0 % GLUCOSE-STAT [id number] 13:14:00 Test Item Value Reference Range Interpretation Comments GLUCOSE RANDOM (BEAKER) (test code = 92 mg/dL 70-110 652) POTASSIUM-STAT [id number] 13:14:00 Test Item Value Reference Range Interpretation Comments POTASSIUM (BEAKER) (test code = 3.9 meq/L 3.6-5.5 379) BLOOD GAS, [id number] 10:54:00 Test Item Value Reference Range Interpretation [...] 1819) 100.0 % HGB/HCT (H&H) - STAT [id number] 10:54:00 Test Item Value Reference Range Interpretation Comments HEMOGLOBIN (BEAKER) (test code = 9.3 g/dL 12.0-15.0 L 410) HEMATOCRIT (BEAKER) (test code = 27.0 % 36.0-45.0 L 411) SODIUM NA-STAT [id number] 10:54:00 Test Item Value Reference Range Interpretation Comments SODIUM (BEAKER) (test code = 381) 132 meq/L 135-148 L GLUCOSE-STAT [id number] 10:52:00 Test Item Value Reference Range Interpretation Comments GLUCOSE RANDOM (BEAKER) (test code = 94 mg/dL 70-110 652) POTASSIUM-STAT [id number] 10:52:00 Test Item Value Reference Range Interpretation Comments POTASSIUM (BEAKER) (test code = 4.0 meq/L 3.6-5.5 379) HEMOGLOBIN [id number] 09:50:00 Test Item Value Reference Range Interpretation Comments HEMOGLOBIN A1C (BEAKER) (test code = 10.6 % 4.3-6.1 H 368) PLATELET AGGREGATION: FUNCTION [id number] 08:27:00 Test Item Value Reference Range Interpretation Comments WEAK ADP 63 % 60-91 RESULT(BEAKER) (test code = 2135) PLATELET FUNCTION 60-100% indicates SCREEN INTERP (BEAKER) normal platelet (test code = 2173) function [id number] Toshia Post MD ([facility]) (test code = (electronic signature) 9973) PLATELET COUNT AGG 198 K/CU MM 150-450 (BEAKER) (test code = 2656) for patients on clopidogrel in past two weeksPOCT-GLUCOSE [id number] 08:11:00 Test Item Value Reference Range Interpretation Comments POC-GLUCOSE METER 116 mg/dL 70-110 H TESTED AT [facility] 6720 (BEAKER) (test code = [place] 1538) [address] [id number] 07:10:00 Test Item Value Reference Range Interpretation Comments PHOSPHORUS (BEAKER) (test code = 4.5 mg/dL 2.3-4.7 604) [id number] 07:10:00 Test Item Value Reference Range Interpretation Comments MAGNESIUM (BEAKER) (test code = 2.1 mg/dL 1.6-2.6 627) BASIC METABOLIC [id number] 07:10:00 Test Item Value Reference Range Interpretation [...] = 700) CBC W/PLT COUNT & AUTO [id number] 06:46:00 Test Item Value Reference Range Interpretation [...] PERCENT (BEAKER) (test code = 2801) CALCIUM, [id number] 06:40:00 Test Item Value Reference Range Interpretation Comments CALCIUM IONIZED (BEAKER) (test 1.06 mmol/L 1.12-1.27 L code = 698) PH, BLOOD (BEAKER) (test code = 7.39 1810) POCT-GLUCOSE [id number] 23:22:00 Test Item Value Reference Range Interpretation Comments POC-GLUCOSE METER 165 mg/dL 70-110 H TESTED AT [facility] 6720 (BEAKER) (test code = [place] 1538) [address] URINE PROTEIN ELECTROPHORESIS, [id number] 18:02:00 Test Item Value Reference Range Interpretation Comments PROTEIN, URINE 305 mg/dL 0-14 H (BEAKER) (test code = 1569) ALBUMIN URINE ELP 70.9 % (BEAKER) (test code = 1018) GAMMA GLOBULIN URINE 29.1 % (BEAKER) (test code = 1015) UPEP, ID-[id number] ([facility]) No monoclonal bands (test code = 1490) detected. [id number] Rocio Galindo MD ([facility]) (test code = (electronic signature) 7675) PROTEIN ELECTROPHORESIS, [id number] 17:57:00 Test Item Value Reference Range Interpretation [...] all globulin fractions. No monoclonal bands detected. [id number] Rocio Galindo MD ([facility]) (test code = (electronic signature) 6862) PROTEIN TOTAL SERUM, 5.5 gm/dL 6.0-8.3 L SPEP (BEAKER) (test code = 2060) POCT-GLUCOSE [id number] 17:15:00 Test Item Value Reference Range Interpretation Comments POC-GLUCOSE METER 209 mg/dL 70-110 H TESTED AT [facility] 6720 ([facility]) (test code = [facility] 1538) [address] BLOOD GAS, [id number] 15:54:00 Test Item Value Reference Range Interpretation [...] 36.0 % RAD, CHEST, 1 VIEW, NON [id number] 14:07:00Reason for exam:->SOB, hypoxemiaShould this be performed [...] Regan Cespedes Verified Date/Time: 05/19/2017 14:07:07 Reading Location:[address] Consult Reading Room POCT-GLUCOSE [id number] 11:26:00 Test Item Value Reference Range Interpretation Comments POC-GLUCOSE METER 262 mg/dL 70-110 H TESTED AT [place] [address] ([facility]) ([facility] 1538) [address] POCT-GLUCOSE [id number] 07:37:00 Test Item Value Reference Range Interpretation Comments POC-GLUCOSE METER 170 mg/dL 70-110 H TESTED AT [place] [address] ([facility]) (test code = [facility] 1538) [address] CALCIUM, [id number] 06:06:00 Test Item Value Reference Range Interpretation Comments CALCIUM IONIZED (BEAKER) (test 1.05 mmol/L 1.12-1.27 L code = 698) PH, BLOOD (BEAKER) (test code = 7.41 1810) [id number] 05:38:00 Test Item Value Reference Range Interpretation Comments PHOSPHORUS (BEAKER) (test code = 3.9 mg/dL 2.3-4.7 604) [id number] 05:38:00 Test Item Value Reference Range Interpretation Comments MAGNESIUM (BEAKER) (test code = 2.2 mg/dL 1.6-2.6 627) BASIC METABOLIC [id number] 05:38:00 Test Item Value Reference Range Interpretation [...] PATIEN TS. CBC W/PLT COUNT & AUTO [id number] 05:09:00 Test Item Value Reference Range Interpretation [...] PERCENT (BEAKER) (test code = 2801) POCT-GLUCOSE [id number] 22:08:00 Test Item Value Reference Range Interpretation Comments POC-GLUCOSE METER 263 mg/dL 70-110 H TESTED AT [facility] 67 (BEAKER) (test code = [place] 1538) [address] POCT-GLUCOSE [id number] 17:20:00 Test Item Value Reference Range Interpretation Comments POC-GLUCOSE METER 233 mg/dL 70-110 H TESTED AT [facility] 6720 (BEAKER) (test code = [place] 1538) [address] POCT-GLUCOSE [id number] 08:28:00 Test Item Value Reference Range Interpretation Comments POC-GLUCOSE METER 154 mg/dL 70-110 H TESTED AT [facility] 6720 (BEAKER) (test code = [place] 1538) [address] BASIC METABOLIC [id number] 06:41:00 Test Item Value Reference Range Interpretation [...] S NOT APPLICABLE FOR DIALYSIS PATIEN TS. [id number] 06:35:00 Test Item Value Reference Range Interpretation Comments PHOSPHORUS (BEAKER) (test code = 4.1 mg/dL 2.3-4.7 604) [id number] 06:35:00 Test Item Value Reference Range Interpretation Comments MAGNESIUM (BEAKER) (test code = 2.1 mg/dL 1.6-2.6 627) CALCIUM, [id number] 06:22:00 Test Item Value Reference Range Interpretation Comments CALCIUM IONIZED (BEAKER) (test 1.10 mmol/L 1.12-1.27 L code = 698) PH, BLOOD (BEAKER) (test code = 7.38 1810) CBC W/PLT COUNT & AUTO [id number] 06:04:00 Test Item Value Reference Range Interpretation [...] PERCENT (BEAKER) (test code = 2801) POCT-GLUCOSE [id number] 03:44:00 Test Item Value Reference Range Interpretation Comments POC-GLUCOSE METER 220 mg/dL 70-110 H TESTED AT [facility] 6720 (BEAKER) (test code = [place] 1538) [address] POCT-GLUCOSE [id number] 18:27:00 Test Item Value Reference Range Interpretation Comments POC-GLUCOSE METER 256 mg/dL 70-110 H TESTED AT [place] [address] ([facility]) (test code = [place]IAN[place] Osborne [place] 1538) [address] POCT-GLUCOSE [id number] 15:45:00 Test Item Value Reference Range Interpretation Comments POC-GLUCOSE METER 278 mg/dL 70-110 H TESTED AT [place] [address] ([facility]) (test code = [facility] [place] 1538) [address] POCT-GLUCOSE [id number] 13:22:00 Test Item Value Reference Range Interpretation Comments POC-GLUCOSE METER 278 mg/dL 70-110 H TESTED AT [place] [address] ([facility]) (test code = [facility] [place] 1538) [address] PLATELET AGGREGATION: FUNCTION [id number] 13:18:00 Test Item Value Reference Range Interpretation Comments WEAK ADP 66 % 60-91 RESULT([facility]) (test code = 2135) PLATELET FUNCTION 60-100% indicates SCREEN INTERP ([facility]) normal platelet (test code = 2173) function [id number] Rigoberto Duenas MD ([facility]) (test code = (electronic signature) 2969) PLATELET COUNT AGG 204 K/CU MM 150-450 ([facility]) (test code = 2656) POCT-GLUCOSE [id number] 08:27:00 Test Item Value Reference Range Interpretation Comments POC-GLUCOSE METER 189 mg/dL 70-110 H TESTED AT [place] [address] ([facility]) (test code = [facility] [place] 1538) [address] CALCIUM, [id number] 06:12:00 Test Item Value Reference Range Interpretation Comments CALCIUM IONIZED (AKER) (test 1.07 mmol/L 1.12-1.27 L code = 698) PH, BLOOD ([facility]) (test code = 7.36 1810) [id number] 05:43:00 Test Item Value Reference Range Interpretation Comments PHOSPHORUS (BEAKER) (test code = 3.6 mg/dL 2.3-4.7 604) [id number] 05:43:00 Test Item Value Reference Range Interpretation Comments MAGNESIUM (BEAKER) (test code = 2.1 mg/dL 1.6-2.6 627) BASIC METABOLIC [id number] 05:43:00 Test Item Value Reference Range Interpretation [...] PATIEN TS. CBC W/PLT COUNT & AUTO [id number] 05:05:00 Test Item Value Reference Range Interpretation [...] PERCENT (BEAKER) (test code = 2801) POCT-GLUCOSE [id number] 21:32:00 Test Item Value Reference Range Interpretation Comments POC-GLUCOSE METER 176 mg/dL 70-110 H TESTED AT [place] [address] ([facility]) (test code = [facility] 1538) [address] POCT-GLUCOSE [id number] 20:27:00 Test Item Value Reference Range Interpretation Comments POC-GLUCOSE METER 161 mg/dL 70-110 H TESTED AT [place] [address] ([facility]) (test code = [facility] 1538) [address] POCT-GLUCOSE [id number] 18:23:00 Test Item Value Reference Range Interpretation Comments POC-GLUCOSE METER 185 mg/dL 70-110 H TESTED AT [place] [address] ([facility]) (test code = [facility] 1538) [address] POCT-GLUCOSE [id number] 13:26:00 Test Item Value Reference Range Interpretation Comments POC-GLUCOSE METER 282 mg/dL 70-110 H TESTED AT [place] [address] ([facility]) (test code = [facility] 1538) [address] URINE [id number] 10:12:00 Test Item Value Reference Range Interpretation Comments CULTURE (BEAKER) (test >100,000 col/mL skin code = 1095) todd POCT-GLUCOSE [id number] 09:01:00 Test Item Value Reference Range Interpretation Comments POC-GLUCOSE METER 268 mg/dL 70-110 H TESTED AT [facility] 6720 (BEAKER) (test code = [place] 1538) [address] CALCIUM, [id number] 05:39:00 Test Item Value Reference Range Interpretation Comments CALCIUM IONIZED (BEAKER) (test 0.84 mmol/L 1.12-1.27 L code = 698) PH, BLOOD (BEAKER) (test code = 7.35 1810) BASIC METABOLIC [id number] 05:07:00 Test Item Value Reference Range Interpretation [...] S NOT APPLICABLE FOR DIALYSIS PATIEN TS. [id number] 05:06:00 Test Item Value Reference Range Interpretation Comments PHOSPHORUS (BEAKER) (test code = 3.2 mg/dL 2.3-4.7 604) [id number] 05:06:00 Test Item Value Reference Range Interpretation Comments MAGNESIUM (BEAKER) (test code = 2.3 mg/dL 1.6-2.6 627) CBC W/PLT COUNT & AUTO [id number] 04:42:00 Test Item Value Reference Range Interpretation [...] = 2801) RHEUMATOID FACTOR AB, REFLEX TO [id number] 01:52:00 Test Item Value Reference Range Interpretation Comments RHEUMATOID FACTOR (ROBERT) (test Negative code = 573) POCT-GLUCOSE [id number] 21:57:00 Test Item Value Reference Range Interpretation Comments POC-GLUCOSE METER 105 mg/dL 70-110 TESTED AT [facility] 6720 (ROBERT) (test code = JULIANO Osborne [facility] 1538) [address] POCT-GLUCOSE [id number] 18:11:00 Test Item Value Reference Range Interpretation Comments POC-GLUCOSE METER 312 mg/dL 70-110 H Notified Dylon Austin MD/TESTED (ROBERT) (test code = AT [facility] 67[address] [facility] 1538) [facility] 7703 0 PET, CARDIAC PERFUSION MULTIPLE STUDIES, REST AND [id number] 16:28:00 Reason for exam:->pvcs, known cadFINAL REPORT PROCEDURE: Rest/Stress MYOCARDIAL PERFUSION PET with regadenoson\\XA9\\ CPT CODE: 80518 INDICATION: Defined extent and severity of known [...] is 23%. LVEF at stress is 36%. [employer] CT images revealed a right pleural effusion [...] Whaley Verified Date/Time: 05/15/2017 16:28:12 Reading Location: [address] ReadingRoom RAD, CHEST, 1 VIEW, NON [id number] 15:56:00Reason for exam:->SOBShould this be performed at the bedside?->YesFINAL REPORT Comparison: 05/14/2017 TECHNIQUE: Single view of the chest FINDINGS: There is a small right pleural effusion with nonspecific airspace disease. This is unchanged. Left lung is grossly clear. Cardiac silhouette is enlarged. IMPRESSION: 1. No acute cardiopulmonary disease. Signed: Sixto Monk MDReport Verified Date/Time: 05/15/2017 15:56:39 [facility] POCT-GLUCOSE [id number] 12:54:00 Test Item Value Reference Range Interpretation Comments POC-GLUCOSE METER 308 mg/dL 70-110 H Notified Dylon Austin MD/TESTED (ROBERT) (test code = AT [facility] 6720 [facility] 1538) [facility] 7[address] 0 U/S, RENAL WITH [id number] 11:04:00Reason for exam:->tracy, htnShould this be performed [...] Hobbs Verified Date/Time: 05/15/2017 11:04:01 Reading Location: [address] Ultrasound Reading Room ANA TITER AND [id number] 10:57:00 Test Item Value Reference Range Interpretation Comments ROGER TITER (BEAKER) (test code = :160 1541) ROGER PATTERN (BEAKER) (test code = Speckled 1781) ANTI-NUCLEAR ANTIBODY (ROGER)2017-05-15 10:56:00 Test Item Value Reference Range Interpretation Comments ANTI-NUCLEAR ANTIBODY (ROGER) (BEAKER) Positive Negative A (test code = 418) CALCIUM, [id number] 06:00:00 Test Item Value Reference Range Interpretation Comments CALCIUM IONIZED (BEAKER) (test 1.07 mmol/L 1.12-1.27 L code = 698) PH, BLOOD (BEAKER) (test code = 7.28 1810) HEPATITIS PANEL, [id number] 05:01:00 Test Item Value Reference Range Interpretation Comments HEPATITIS A IGM ANTIBODY (BEAKER) Nonreactive Nonreactive (test code = 498) HEPATITIS B CORE IGM ANTIBODY Nonreactive Nonreactive (BEAKER) (test code = 645) HEPATITIS C ANTIBODY (BEAKER) Nonreactive Nonreactive (test code = 367) HEPATITIS B SURFACE ANTIGEN (2) Nonreactive Nonreactive (BEAKER) (test code = 2585) BASIC METABOLIC [id number] 04:48:00 Test Item Value Reference Range Interpretation [...] NOT APPLICABLE FOR DIALYSIS PATIEN TS. URIC [id number] 04:41:00 Test Item Value Reference Range Interpretation Comments URIC ACID (BEAKER) (test code = 10.3 mg/dL 2.6-7.2 H 773) [id number] 04:41:00 Test Item Value Reference Range Interpretation Comments MAGNESIUM (BEAKER) (test code = 2.0 mg/dL 1.6-2.6 627) [id number] 04:41:00 Test Item Value Reference Range Interpretation Comments PHOSPHORUS (BEAKER) (test code = 4.2 mg/dL 2.3-4.7 604) COMPLEMENT COMPONENT [id number] 04:38:00 Test Item Value Reference Range Interpretation Comments C4 COMPLEMENT (BEAKER) (test code = 28 mg/dL 15-57 394) COMPLEMENT COMPONENT [id number] 04:38:00 Test Item Value Reference Range Interpretation Comments C3 COMPLEMENT (BEAKER) (test code = 103 mg/dL 82-193 393) CBC W/PLT COUNT & AUTO [id number] 04:22:00 Test Item Value Reference Range Interpretation [...] PERCENT (BEAKER) (test code = 280) POCT-GLUCOSE [id number] 21:46:00 Test Item Value Reference Range Interpretation Comments POC-GLUCOSE METER 173 mg/dL 70-110 H TESTED AT [facility] 6720 (BEAKER) (test code = JULIANO REYEZ 1538) [address] POCT-GLUCOSE [id number] 21:46:00 Test Item Value Reference Range Interpretation Comments POC-GLUCOSE METER 154 mg/dL 70-110 H TESTED AT [facility] 6720 (BEAKER) (test code = JULIANO Osborne [facility] 1538) [address] POCT-GLUCOSE [id number] 18:17:00 Test Item Value Reference Range Interpretation Comments POC-GLUCOSE METER 175 mg/dL 70-110 H TESTED AT [place] [address] ([facility]) (test code = JULIANO Osborne [facility] 1538) [address] RAD, CHEST, 1 VIEW, NON [id number] 14:56:00Reason for exam:->SOBShould this be performed at the bedside?->YesFINAL REPORT INDICATION: SOB COMPARISON: May 13, 2017 TECHNIQUE: Chest radiograph, single view, portable technique. FINDINGS / IMPRESSION: Enlarged heart shadow, small rightpleural effusion, and pulmonary venous congestion, again demonstrated. No pneumothorax or consolidation. Osseous structures unremarkable. Signed: Thania Dwyer Verified Date/Time: 05/14/2017 14:56:58 Reading Location: [facility] Mammo Reading Room POCT-GLUCOSE [id number] 12:18:00 Test Item Value Reference Range Interpretation Comments POC-GLUCOSE METER 313 mg/dL 70-110 H TESTED AT [place] [address] ([facility]) (test code = JULIANO Osborne [facility] 1538) [address] HIV-1 ANTIGEN WITH HIV-1/2 [id number] 12:07:00 Test Item Value Reference Range Interpretation Comments HIV-1 ANTIGEN WITH HIV 1\\T\\2 Nonreactive Nonreactive ANTIBODY (2) ([facility]) (test code = 2586) CALCIUM, [id number] 06:37:00 Test Item Value Reference Range Interpretation Comments CALCIUM IONIZED (BEAKER) (test 1.08 mmol/L 1.12-1.27 L code = 698) PH, BLOOD (BEAKER) (test code = 7.25 1810) BASIC METABOLIC [id number] 06:26:00 Test Item Value Reference Range Interpretation [...] pg/mL 0-100 H (test code = 700) [id number] 06:25:00 Test Item Value Reference Range Interpretation Comments PHOSPHORUS (BEAKER) (test code = 5.7 mg/dL 2.3-4.7 H 604) [id number] 06:25:00 Test Item Value Reference Range Interpretation Comments MAGNESIUM (BEAKER) (test code = 1.5 mg/dL 1.6-2.6 L 627) CBC W/PLT COUNT & AUTO [id number] 06:07:00 Test Item Value Reference Range Interpretation [...] PERCENT (BEAKER) (test code = 2801) POCT-GLUCOSE [id number] 22:38:00 Test Item Value Reference Range Interpretation Comments POC-GLUCOSE METER 262 mg/dL 70-110 H TESTED AT [facility] 6720 (BEAKER) (test code = JULIANO [place] 1538) [address] PROTEIN, RANDOM [id number] 22:18:00 Test Item Value Reference Range Interpretation Comments PROTEIN, URINE (BEAKER) (test code 641 mg/dL 0-14 H = 1569) CREATININE, RANDOM [id number] 22:07:00 Test Item Value Reference Range Interpretation Comments CREATININE URINE (BEAKER) (test 124.9 mg/dL code = 375) Reference Range: No NormalsURINALYSIS W/ [id number] 22:03:00 Test Item Value Reference Range Interpretation [...] 1585) SOURCE(BEAKER) (test code = Urine, Voided 2226) [id number] 19:49:00 Test Item Value Reference Range Interpretation Comments SODIUM (BEAKER) (test 136 meq/L 136-145 code = 381) POTASSIUM (BEAKER) 5.1 meq/L 3.5-5.1 Specimen slightly (test code = 379) hemolyzed CHLORIDE (BEAKER) 104 meq/L 98-107 (test code = 382) CO2 (BEAKER) (test 25 meq/L 22-29 code = 355) Call if K > 5POCT-GLUCOSE [id number] 11:37:00 Test Item Value Reference Range Interpretation Comments POC-GLUCOSE METER 293 mg/dL 70-110 H TESTED AT [place] [address] ([facility]) (test code = JULIANO Osborne [facility] 1538) [address] RAD, CHEST, 1 VIEW, NON [id number] 10:22:00Reason for exam:->SOBShould this be performed at the bedside?->YesFINAL REPORT Chest one view Discussion: There is cardiomegaly and interstitial congestion. A small right-sided effusion is noted. No pneumothorax. IMPRESSIONS: Suspected CHF. Signed: Jeannette Navaepemily Verified Date/Time: 05/13/2017 10:22:34 Reading Location: [facility] Radiology Reading Room POCT-GLUCOSE METER 2017-05-13 08:34:00 Test Item Value Reference Range Interpretation Comments POC-GLUCOSE METER 178 mg/dL 70-110 H TESTED AT [place] [address] ([facility]) (test code = JULIANO Osborne [facility] 1538) [id number] POCT-GLUCOSE [id number] 06:53:00 Test Item Value Reference Range Interpretation Comments POC-GLUCOSE METER 167 mg/dL 70-110 H TESTED AT [place] [address] ([facility]) (test code = JULIANO Osborne [facility] 1538) [address] [id number] 04:48:00 Test Item Value Reference Range Interpretation Comments BLOOD UREA NITROGEN (BEAKER) (test 36 mg/dL 7-21 H code = 354) [id number] 04:48:00 Test Item Value Reference Range Interpretation Comments SODIUM (BEAKER) (test code = 381) 139 meq/L 136-145 POTASSIUM (BEAKER) (test code = 5.2 meq/L 3.5-5.1 H 379) CHLORIDE (BEAKER) (test code = 382) 109 meq/L 98-107 H CO2 (BEAKER) (test code = 355) 23 meq/L 22-29 [id number] 04:48:00 Test Item Value Reference Range Interpretation [...] WBC 0-0 (BEAKER) (test code = 413) [id number] 23:29:00 Test Item Value Reference Range Interpretation Comments ACTIVATED CLOTTING TIME 136 sec TEST ED AT [place] [address] ([facility]) (test code = JULIANO Osborne [place] [address]) [address] [id number] 20:13:00 Test Item Value Reference Range Interpretation Comments ACTIVATED CLOTTING TIME 175 sec TEST ED AT [place] [address] ([facility]) (test code = JULIANO Osborne [place] [address]) [address] [id number] 18:36:00 Test Item Value Reference Range Interpretation Comments ACTIVATED CLOTTING TIME 202 sec TEST ED AT [place] [address] ([facility]) (test code = JULIANO Osborne [place] [address]) [address] [id number] 18:03:00 Test Item Value Reference Range Interpretation Comments ACTIVATED CLOTTING TIME 208 sec TEST ED AT [facility] 6720 (BEAKER) (test code = [place]IANO [place] 441) [address] BASIC METABOLIC [id number] 11:57:00 Test Item Value Reference Range Interpretation [...] NOT APPLICABLE FOR DIALYSIS PATIEN TS. PROTHROMBIN [id number] 11:15:00 Test Item Value Reference Range Interpretation [...] if on CoumadinCBC W/PLT COUNT & AUTO [id number] 11:01:00 Test Item Value Reference Range Interpretation [...] PERCENT (BEAKER) (test code = 2801) POCT-GLUCOSE [id number] 12:35:00 Test Item Value Reference Range Interpretation Comments POC-GLUCOSE METER 249 mg/dL 70-110 H TESTED AT [facility] 6720 (BEAKER) (test code = [facility] 1538) [address] POCT-GLUCOSE [id number] 09:10:00 Test Item Value Reference Range Interpretation Comments POC-GLUCOSE METER 155 mg/dL 70-110 H TESTED AT [facility] 6720 (BEAKER) (test code = MATTHIASNY Dylon [facility] 1538) [address] BASIC METABOLIC [id number] 05:39:00 Test Item Value Reference Range Interpretation [...] S NOT APPLICABLE FOR DIALYSIS PATIEN TS. [id number] 05:27:00 Test Item Value Reference Range Interpretation Comments PHOSPHORUS (BEAKER) (test code = 5.0 mg/dL 2.3-4.7 H 604) [id number] 05:27:00 Test Item Value Reference Range Interpretation Comments MAGNESIUM (BEAKER) (test code = 1.6 mg/dL 1.6-2.6 627) POCT-GLUCOSE [id number] 05:25:00 Test Item Value Reference Range Interpretation Comments POC-GLUCOSE METER 144 mg/dL 70-110 H TESTED AT [facility] 6720 (BEAKER) (test code = [facility] 1538) [address] PROTHROMBIN [id number] 04:58:00 Test Item Value Reference Range Interpretation Comments PROTIME (BEAKER) (test code = 14.2 seconds 11.7-14.7 759) INR ([facility]) (test code = 370) 1.1 <=5.9 RECOMMENDED COUMADIN/WARFARIN INR THERAPY RANGESSTANDARD DOSE: 2.0 - 3.0 Includes: PROPHYLAXIS forvenous thrombosis, systemic embolization; TREATMENT for venous thrombosis and/or pulmonary embolus.HIGH RISK: Target INR is 2.5-3.5 for patients with mechanical heart valves.POCT-GLUCOSE [id number] 23:55:00 Test Item Value Reference Range Interpretation Comments POC-GLUCOSE METER 86 mg/dL 70-110 TESTED AT [place] [address] ([facility]) (test code = [facility] [address] 1538) B-TYPE NATRIURETIC FACTOR (BNP)2017-04-22 18:13:00 Test Item Value Reference Range Interpretation Comments B-TYPE NATRIURETIC PEPTIDE 1203 pg/mL 0-100 H ([facility]) (test code = 700) POCT-GLUCOSE [id number] 17:36:00 Test Item Value Reference Range Interpretation Comments POC-GLUCOSE METER 259 mg/dL 70-110 H TESTED AT [place] [address] ([facility]) (test code = [facility] 1538) [address] HEMOGLOBIN [id number] 14:24:00 Test Item Value Reference Range Interpretation Comments HEMOGLOBIN A1C ([facility]) (test code = 10.5 % 4.3-6.1 H 368) POCT-GLUCOSE [id number] 12:34:00 Test Item Value Reference Range Interpretation Comments POC-GLUCOSE METER 207 mg/dL 70-110 H TESTED AT [place] [address] ([facility]) (test code = [facility] 1538) [address] [id number] 07:53:00 Test Item Value Reference Range Interpretation Comments PHOSPHORUS ([facility]) (test code = 3.9 mg/dL 2.3-4.7 604) [id number] 07:53:00 Test Item Value Reference Range Interpretation Comments MAGNESIUM (BEAKER) (test code = 1.6 mg/dL 1.6-2.6 627) BASIC METABOLIC [id number] 07:53:00 Test Item Value Reference Range Interpretation Comments SODIUM ([facility]) 139 meq/L 136-145 (test code = 381) [...] NOT APPLICABLE FOR DIALYSIS PATIEN TS. TROPONIN [id number] 07:29:00 Test Item Value Reference Range Interpretation [...] acidosis, acute neurological disease, and persistent tachyarrhythmia.PROTHROMBIN [id number] 07:01:00 Test Item Value Reference Range Interpretation Comments PROTIME (BEAKER) (test code = 13.8 seconds 11.7-14.7 759) INR (BEAKER) (test code = 370) 1.1 <=5.9 RECOMMENDED COUMADIN/WARFARIN INR THERAPY RANGESSTANDARD DOSE: 2.0 - 3.0 Includes: PROPHYLAXIS forvenous thrombosis, systemic embolization; TREATMENT for venous thrombosis and/or pulmonary embolus.HIGH RISK: Target INR is 2.5-3.5 for patients with mechanical heart valves.POCT-GLUCOSE [id number] 06:28:00 Test Item Value Reference Range Interpretation Comments POC-GLUCOSE METER 198 mg/dL 70-110 H TESTED AT [facility] 6720 (BEAKER) (test code = JULIANO Osborne [place] 1538) [address] CREATINE KINASE (CK), TOTAL AND [id number] 00:49:00 Test Item Value Reference Range Interpretation Comments CREATINE KINASE TOTAL ([facility]) 69 U/L 29-200 (test code = 380) CREATINE KINASE-MB ([facility]) (test 4.3 ng/mL 0.0-6.6 code = 750) CREATINE KINASE-MB INDEX ([facility]) 6.2 % (test code = 395) CK-MB Reference Range:<6.7 Normal6.7-10.0 Borderline>10.0 AbnormalTROPONIN [id number] 00:49:00 Test Item Value Reference Range Interpretation Comments TROPONIN I ([facility]) (test code = 0.05 ng/mL [...] acidosis, acute neurological disease, and persistent tachyarrhythmia.POCT-GLUCOSE [id number] 20:44:00 Test Item Value Reference Range Interpretation Comments POC-GLUCOSE METER 269 mg/dL 70-110 H TESTED AT [facility] 67 ([facility]) (test code = JULIANO Osborne [facility] 1538) [address]
[2020-03-09] MEDS ORDERED: NA CHLORIDE 0.9% 250 ML ONE (22:37)
[2020-03-09 22:41] LABS: Absolute Lymphocytes (CBC) 2.2 K/uL (0.7-4.9); Basophils % 1.4 % (0-1.3); Hematocrit 26.3 % (36.0-45.0); Lymphocytes % 30.9 % (15.3-44.8); MPV 7.2 fL (7.6-11.3); RBC Red Blood Cell Count 2.98 M/uL (3.86-4.86)
[2020-03-09 22:44] LABS: Protime INR 1.22
[2020-03-09 23:16] LABS: Potassium 3.6 mmol/L (3.5-5.1); Troponin (Emerg Dept Use Only) 0.09 ng/mL (0.0-0.045)
--- NOTE | 2020-03-09 23:46 | ER ---
Nurse's Notes [facility] Name: Christy Priest Age: 64 yrs Sex: Female : 1955 Arrival Date: 03/09/2020 Time: 22:10 Bed 6 Private MD: Diagnosis: Chest pain, unspecified;Hypotension, unspecified;End stage renal disease;Pleural effusion, not elsewhere classified Presentation: 03/09 22:10 Chief complaint: EMS states: Pt C/O pain in left lung that started 40 minutes ago. Pt wh describes pain as burning. Per EMS Pt BP hypotensive at 86/40, Pt stated she just had HD today and unsure how much fluid was taken off. Coronavirus screen: Client denies travel out of the [place] in the last 14 days. At this time, the client does not indicate any symptoms associated with coronavirus-19. Ebola Screen: Patient negative for fever greater than or equal to 101.5 degrees Fahrenheit, and additional compatible Ebola Virus Disease symptoms Patient denies exposure to infectious person. Initial Sepsis Screen: Does the patient meet any 2 criteria? No. Patient's initial sepsis screen is negative. Does the patient have a suspected source of infection? Yes: Skin breakdown/wound. Risk Assessment: Do you want to hurt yourself or someone else? Patient reports no desire to harm self or others. Onset of symptoms was March 09, 2020. 22:10 Method Of Arrival: EMS: [facility] 22:10 Acuity: DENNY 3 Triage Assessment: 23:00 General: Behavior is calm, cooperative. Historical: - Allergies: 22:16 Augmentin; 22:16 basil; 22:16 Clindamycin; 22:16 Morphine; 22:16 Nitroglycerin; 22:16 Tramadol HCl; 22:16 Trazodone; 22:16 Vancomycin; 22:16 Vicodin; wh - Home Meds: 22:16 gabapentin Oral [Active]; Hydralazine Oral [Active]; insulin [Active]; Lasix Oral wh [Active]; Plavix Oral [Active]; - PMHx: 22:16 ADD/ADHD; CHF; COPD; Diabetes - IDDM; ESRD; High Cholesterol; Hypertension; triple wh bypass; uterine cancer; - Immunization history:: Adult Immunizations unknown. - Social history:: Smoking status: Patient/guardian denies using. - Family history:: not pertinent. - Hospitalizations: : No recent hospitalization is reported. Screenin:17 Abuse screen: Denies threats or abuse. Denies injuries from another. Nutritional wh screening: On renal diet. Tuberculosis screening: No symptoms or risk factors identified. Fall Risk Fall in past 12 months (25 points). Assessment: 22:18 General: Appears ill, unkempt. Pain: Complains of pain in left chest Pain does not wh radiate. Pain currently is 7 out of 10 on a pain scale. Quality of pain is described as burning, Pain began 1 hour ago. Is continuous. Neuro: Level of Consciousness is awake, alert, obeys commands, Oriented to person, place, time, situation. Cardiovascular: Heart tones S1 S2 Edema is 4+ to left ankle and right ankle pitting to left ankle and right ankle. Respiratory: Reports shortness of breath Airway is patent Respiratory effort is even, unlabored, Respiratory pattern is regular, symmetrical, Breath sounds are diminished. GI: Abdomen is round noted to have ascites. : No signs and/or symptoms were reported regarding the genitourinary system. EENT: No signs and/or symptoms were reported regarding the EENT system. Derm: Skin is fragile, is thin, with BLE wound. Musculoskeletal: Swelling present in right leg and left leg. 23:40 Reassessment: Patient appears in no apparent distress at this time. No changes from previously documented assessment. Patient and/or family updated on plan of care and expected duration. Pain level reassessed. Patient is alert, oriented x 3, equal unlabored respirations, skin warm/dry/pink. 03/10 00:25 Reassessment: Patient appears in no apparent distress at this time. Patient and/or family updated on plan of care and expected duration. Pain level reassessed. Patient is alert, oriented x 3, equal unlabored respirations, skin warm/dry/pink. Provider at bedside explaining POC need for admit. 02:00 Reassessment: Patient appears in no apparent distress at this time. Patient and/or family updated on plan of care and expected duration. Pain level reassessed. Patient is alert, oriented x 3, equal unlabored respirations, skin warm/dry/pink. Vital Signs: 03/09 22:17 BP 83 / 51; Pulse 58; Resp 20; Temp 97.5; Pulse Ox 98% ; 22:39 BP 92 / 53; wh 23:40 BP 93 / 54; Pulse 58; Resp 20; Pulse Ox 98% on R/A; 03/10 00:26 BP 106 / 57; Pulse 60; Resp 20; Pulse Ox 99% on R/A; wh 02:00 BP 115 / 60; Pulse 60; Resp 16; Pulse Ox 99% on R/A; ED Course: 03/09 22:10 Patient arrived in ED. mw2 22:10 Jurgen Nettles MD is Attending Physician. rn 22:12 Triage completed. wh 22:18 Patient has correct armband on for positive identification. Placed in gown. Bed in low wh position. Call light in reach. Side rails up X 1. court recording monitor on. Pulse ox on. NIBP on. 22:21 Arm band placed on right wrist. wh 22:23 Nicholas Bowers is Primary Nurse. 22:24 Inserted saline lock: 20 gauge in right forearm, using aseptic technique. Blood rr5 collected. 22:44 X-ray completed. Portable x-ray completed in exam room. Patient tolerated procedure nj well. 22:45 XRAY Chest (1 view) In Process Unspecified. EDMS 23:44 Nimesh Barreto DO is Hospitalizing Provider. rn 03/10 00:03 Oleksandr Nettles MD is Hospitalizing Provider. la1 02:14 No provider procedures requiring assistance completed. Patient admitted, IV remains in place. 02:16 Straight cath inserted, using sterile technique. oe Administered Medications: 03/09 22:26 Drug: NS 0.9% 250 ml Route: IV; Rate: bolus; Site: right forearm; 23:40 Follow up: Response: No adverse reaction; IV Status: Completed infusion 03/10 00:25 Drug: LevaQUIN 500 mg Volume: 100 ml; Route: IVPB; Infused Over: 60 mins; Site: right forearm; 01:24 Follow up: Response: No adverse reaction; IV Status: Completed infusion 00:25 Not Given (Other Intervention Used): NS 0.9% 250 ml IV at bolus once la1 Outcome: 03/09 23:45 Decision to Hospitalize by Provider. rn 03/10 02:14 Admitted to Med/surg accompanied by tech, via stretcher, room 224, with chart, Report wh called to Ana Schultz RN Condition: stable Instructed on the need for admit. 03:06 Patient left the ED. Signatures: Dispatcher [employer] EDJurgen No MD MD rn Mk Alonso, MIXING PLACE SUPERVISOR-C MIXING PLACE SUPERVISOR-Cla1 Angel Bill Orlando oe [place], Winsy Margarita Stanton mw2 Oleksandr Monae, RN RN rr5
--- NOTE | 2020-03-09 23:46 | EDPHYS ---
Physician Documentation [facility] Name: Christy Priest Age: 64 yrs Sex: Female : 1955 Arrival Date: 03/09/2020 Time: 22:10 Bed 6 Private MD: ED Physician Jurgen Nettles HPI: 03/09 22:56 This 64 yrs old Female presents to ER via EMS with complaints of chest pain. rn 22:56 The patient or guardian reports chest pain that is located primarily in the left chest. rn Onset: just prior to arrival. The pain radiates to Associated signs and symptoms: Pertinent positives: shortness of breath, Pertinent negatives: abdominal pain, cough, diaphoresis, headache, near syncope, syncope. The chest pain is described as burning, dull. Duration: The patient or guardian reports a single episode, that is still ongoing. Modifying factors: The symptoms are alleviated by nothing. the symptoms are aggravated by deep breath. Severity of pain: At its worst the pain was moderate in the emergency department the pain is unchanged. The patient has not experienced similar symptoms in the past. The patient has not recently seen a physician. Denies trauma, feels pain left chest, "left lung", no fever or cough, had dialysis today, noted to be hypotensive. Denies vomiting/diarrhea/fever. Feels better when laying on left side, denies having pain like this before. . Historical: - Allergies: 22:16 Augmentin; wh 22:16 basil; wh 22:16 Clindamycin; wh 22:16 Morphine; wh 22:16 Nitroglycerin; wh 22:16 Tramadol HCl; wh 22:16 Trazodone; wh 22:16 Vancomycin; wh 22:16 Vicodin; wh - Home Meds: 22:16 gabapentin Oral [Active]; Hydralazine Oral [Active]; insulin [Active]; Lasix Oral wh [Active]; Plavix Oral [Active]; - PMHx: 22:16 ADD/ADHD; CHF; COPD; Diabetes - IDDM; ESRD; High Cholesterol; Hypertension; triple wh bypass; uterine cancer; - Immunization history:: Adult Immunizations unknown. - Social history:: Smoking status: Patient/guardian denies using. - Family history:: not pertinent. - Hospitalizations: : No recent hospitalization is reported. ROS: 22:56 Constitutional: Negative for fever, chills, and weight loss, Eyes: Negative for injury, rn pain, redness, and discharge, Neck: Negative for injury, pain, and swelling, Cardiovascular: Negative for palpitations Respiratory: Negative for cough, wheezing Abdomen/GI: Negative for abdominal pain, nausea, vomiting, diarrhea, and constipation, Back: Negative for injury MS/Extremity: Negative for injury and deformity, Skin: Negative for injury, rash, and discoloration, Neuro: Negative for headache, numbness, tingling, and seizure. Exam: 22:56 Constitutional: Frail appearing woman, laying on left side, position Head/Face: rn Normocephalic, atraumatic. ENT: dry MM Chest/axilla: Normal chest wall appearance and motion. Nontender with no deformity. No lesions are appreciated. Cardiovascular: Regular rhythm, bradycardic. No pulse deficits. Respiratory: Mild tachypnea with diminished breath sounds at bases Abdomen/GI: soft, non-tender Back: No spinal tenderness. No costovertebral tenderness. Full range of motion. Skin: Warm, dry, chronic lower ext wounds MS/ Extremity: Pulses equal, no cyanosis. Neurovascular intact. Full, normal range of motion. Equal circumference. Neuro: Awake and alert, GCS 15 23:42 ECG was reviewed by the Attending Physician. rn Vital Signs: 22:17 BP 83 / 51; Pulse 58; Resp 20; Temp 97.5; Pulse Ox 98% ; wh 22:39 BP 92 / 53; wh 23:40 BP 93 / 54; Pulse 58; Resp 20; Pulse Ox 98% on R/A; wh 12/11 00:26 BP 106 / 57; Pulse 60; Resp 20; Pulse Ox 99% on R/A; wh 02:00 BP 115 / 60; Pulse 60; Resp 16; Pulse Ox 99% on R/A; wh MDM: 1210 22:10 Patient medically screened. rn 23:42 Differential diagnosis: acute myocardial infarction, acute pericarditis, anxiety, rn coronary artery disease chest wall pain, congestive heart failure esophagitis, gastritis, gastroesophageal reflux disease (GERD), pericarditis, pleurisy, pneumonia, pneumothorax, pulmonary embolus, stable angina. Data reviewed: vital signs, nurses notes, lab test result(s), EKG, radiologic studies. 23:43 Counseling: I had a detailed discussion with the patient and/or guardian regarding: the rn historical points, exam findings, and any diagnostic results supporting the discharge/admit diagnosis, lab results, radiology results, the need for further work-up and treatment in the hospital. Admission orders: after a detailed discussion of the patient's condition and case, the admit orders are written by me. ED course: Pt with recent stent, elevated trop could be cardiac related vs CHF/ESRD. + pleural effusion alone could explain chest/back pain but also infiltrate. + hypotension. Will admit for further care and evaluation. . 03/09 22:16 Order name: CBC with Diff; Complete Time: 22:56 03/09 22:16 Order name: Basic Metabolic Panel; Complete Time: 23:32 03/09 22:16 Order name: Protime (+inr); Complete Time: 22:56 03/09 22:16 Order name: Ptt, Activated; Complete Time: 22:56 03/09 22:16 Order name: Procalcitonin; Complete Time: 00:02 03/09 22:16 Order name: BNP; Complete Time: 23:32 10 23:03 Order name: Troponin (Emerg Dept Use Only); Complete Time: 23:32 [facility] 03/09 23:46 Order name: Blood Culture Adult (2) 03/09 23:46 Order name: Lactate; Complete Time: 01:17 03/10 00:37 Order name: COVID-19 rr5 03/10 01:49 Order name: Urine Dipstick--Ancillary (enter results) [facility] 03/10 01:52 Order name: Urine Dipstick-Ancillary [facility] 03/10 02:52 Order name: SARS-COV-2 RT PCR [facility] 03/09 22:16 Order name: IV Start; Complete Time: 22:26 10 22:16 Order name: EKG; Complete Time: 22:17 10 22:16 Order name: EKG - Nurse/Tech; Complete Time: 22:26 03/09 22:16 Order name: XRAY Chest (1 view) 03/10 00:25 Order name: Urine Dipstick-Ancillary (obtain specimen); Complete Time: 01:42 la1 EC:42 Rate is 59 beats/min. Rhythm is regular. QRS [place] is Normal. [place] interval is normal. QRS rn interval is normal. QT interval is normal. No Q waves. T waves are Normal. No ST changes noted. Clinical impression: Sinus bradycardia. Interpreted by me. Reviewed by me. Administered Medications: 22:26 Drug: NS 0.9% 250 ml Route: IV; Rate: bolus; Site: right forearm; 23:40 Follow up: Response: No adverse reaction; IV Status: Completed infusion 03/10 00:25 Drug: LevaQUIN 500 mg Volume: 100 ml; Route: IVPB; Infused Over: 60 mins; Site: right forearm; 01:24 Follow up: Response: No adverse reaction; IV Status: Completed infusion 00:25 Not Given (Other Intervention Used): NS 0.9% 250 ml IV at bolus once la1 Disposition: 03/09/20 23:45 Hospitalization ordered by Oleksandr Nettles for Inpatient Admission. Preliminary diagnosis are Chest pain, unspecified, Hypotension, unspecified, End stage renal disease, Pleural effusion, not elsewhere classified. - Bed requested for Telemetry/MedSurg (Inpatient). - Status is Inpatient Admission. - Condition is Stable. - Problem is new. - Symptoms have improved. Signatures: Dispatcher [employer] [facility] Alondra Montalvo RN RN kl Nieto, Roman, MD MD rn Attema, Lee, MAINFRAME APPLICATIONS DEVELOPER-C MAINFRAME APPLICATIONS DEVELOPER-Cla1 Nicholas Bowers Corrections: (The following items were deleted from the chart) 03/09 23:02 22:57 TROPONIN (EMERG DEPT USE ONLY)+C.LAB.BRZ ordered. [facility] EDTX 03/10 00:03 03/09 23:45 Hospitalization Ordered by Nimesh Barreto DO for Inpatient Admission. la1 Preliminary diagnosis is Chest pain, unspecified; Hypotension, unspecified; End stage renal disease; Pleural effusion, not elsewhere classified. Bed requested for Telemetry/MedSurg (Inpatient). Status is Inpatient Admission. Condition is Stable. Problem is new. Symptoms have improved. rn 03/10 01:52 00:03 03/09/2020 23:45 Hospitalization Ordered by Oleksandr Nettles MD for Inpatient kl Admission. Preliminary diagnosis is Chest pain, unspecified; Hypotension, unspecified; End stage renal disease; Pleural effusion, not elsewhere classified. Bed requested for Telemetry/MedSurg (Inpatient). Status is Inpatient Admission. Condition is Stable. Problem is new. Symptoms have improved. la1 03:06 01:52 03/09/2020 23:45 Hospitalization Ordered by Oleksandr Nettles MD for Inpatient Admission. Preliminary diagnosis is Chest pain, unspecified; Hypotension, unspecified; End stage renal disease; Pleural effusion, not elsewhere classified. Bed requested for Telemetry/MedSurg (Inpatient). Status is Inpatient Admission. Condition is Stable. Problem is new. Symptoms have improved. kl
[2020-03-10] MEDS ORDERED: Levofloxacin500mg IV 500 MG/100 ML BAG IV ONE (00:03)
[2020-03-10] MEDS ORDERED: NA CHLORIDE 0.9% 250 ML ONE (00:03)
--- NOTE | 2020-03-10 01:51 | P.HP ---
Certification for Inpatient Patient admitted to: Observation With expected LOS: <2 Midnights Patient will require the following post-hospital care: None Practitioner: I am a practitioner with admitting privileges, knowledge of patient current condition, hospital course, and medical plan of care. Services: Services provided to patient in accordance with Admission requirements found in Title 42 Section 412.3 of the Code of Federal Regulations <Mk Alonso - Last Filed: 03/10/20 01:43> Patient History Date of Service: 03/10/20 Primary Care Provider: Dr. Fernando Reason for admission: Chest pain History of Present Illness: 64-year-old female with history of end-stage renal disease on hemodi alysis Friday, chronic congestive heart failure with preserved ejection fraction, diabetes mellitus type 2, multiple recent hospitalization presents emergency department for chest pain and hypotension. Patient had dialysis today and shortly after began having chest pain. Pain began at approximately 7:00 p.m. this evening, described as pressure like as if somebody is sitting on her chest, pain radiates to left scapular area is associated with mild shortness of breath. Patient with recent cardiac catheterization for NSTEMI on 02/28/2020. Patient had balloon angioplasty of the right coronary artery in stenting of the left circumflex. At that time patient had urine culture growing Enterobacter which was sensitive to fluoroquinolones and multiple wounds on the lower extremities with wound cultures growing RSA and Pseudomonas. Patient condition improved and she is discharged with oral Levaquin and doxycycline. Patient did not fill these prescriptions or take them as she states she could not afford them due to insurance status. Patient was given 250 cc normal saline bolus in the emergency department, blood pressure improved to 106 systolic, pain still persisting at this time, no acute changes on EKG, chest x-ray demonstrates right-sided pleural effusion similar to previous, initial troponin 0.09. Patient sees wound healing Center for wounds to lower extremities, was seen yesterday in wound healing center who stated that her wounds are progressing well. - Past Medical/Surgical History Diabetic: Yes -: COPD -: Hypertension -: CAD, CABG x4 vessels (August 2017) -: Diabetes mellitus type 2, insulin-dependent -: Chronic combined systolic/diastolic CHF -: Uterine cancer status post hysterectomy -: Chronic renal disease, stage IV -: TB as a child - Negative 2017 -: Hyperlipidemia -: Iron deficiency anemia -: WEST -: Likely obstructive sleep apnea -: Rectal surgery -: Hysterectomy -: Cholecystectomy -: Gastric surgery -: Appendectomy -: CABG x4 vessel -: RLE Femoral popliteal bypass -: Left great toe amputation Psychosocial/ Personal History: The patient is a . Her son lives with her. She has 3 children. - Family History Brother -: Heart disease, Hypertension Notes: Father -: Heart disease, Cancer Notes: - Prostate surgery - Hemorrhage Mother -: GI disease Notes: Sister -: Heart disease Notes: - Respiratory failure - Social History Alcohol use: No CD- Drugs: No Caffeine use: Yes Place of Residence: Home <Mk Alonso - Last Filed: 03/10/20 01:43> Date of Service: 03/10/20 <Oleksandr Nettles - Last Filed: 03/10/20 20:13> Allergies morphine Allergy (Severe, Verified 02/27/20 04:42) Anaphylaxis vancomycin Allergy (Intermediate, Verified 02/27/20 04:42) Shortness of breath basil Allergy (Verified 02/27/20 04:42) Nausea/Vomiting tramadol Allergy (Verified 02/27/20 04:42) Nausea/Vomiting trazodone Allergy (Verified 02/27/20 04:42) Nausea/Vomiting nitroglycerin Adverse Reaction (Mild, Verified 02/27/20 04:42) Nausea/Vomiting Home Medications: Buproprion S.r. [Wellbutrin Sr*] 1 tab PO BID 02/27/20 Clopidogrel Bisulfate [Plavix*] 75 mg PO DAILY 02/27/20 Collagenase [Santyl Ointment*] 1 appl TOP DAILY 02/27/20 Fluticasone [Flovent Hfa 110*] 2 puff IH DAILY 02/27/20 Hydralazine [Apresoline*] 2 tab PO TID 02/27/20 Nifedipine [Nifedipine ER] 1 tab PO DAILY 02/27/20 allopurinoL [Allopurinol] 1 tab PO BID 02/27/20 Doxycycline Hyclate 100 mg PO BID #14 tablet 03/02/20 Epoetin [Retacrit] 10,000 unit IV EVERY HD vial 03/02/20 Gabapentin [Neurontin*] 100 mg PO TID #90 cap 03/02/20 Patrice [Patrice*] 1 pkt PO BID #60 powd.pack 03/02/20 Medihoney [Medihoney Woundcare Gel*] 1 appl TOP DAILY #1 tube 03/02/20 Review of Systems 10-point ROS is otherwise unremarkable Respiratory: Shortness of Breath Cardiovascular: Chest Pain, As per HPI <Mk Alonso - Last Filed: 03/10/20 01:43> Physical Examination - Physical Exam General: Alert, In no apparent distress, Oriented x3 HEENT: Atraumatic, Normocephalic, Other (Mucous membranes dry) Neck: Supple Respiratory: Clear to auscultation bilaterally, Normal air movement Cardiovascular: Regular rate/rhythm, Normal S1 S2, Edema (Mild edema bilateral lower extremities) Capillary refill: <2 Seconds Gastrointestinal: Normal bowel sounds, Soft and benign, No tenderness, No masses, No rebound, No guarding Musculoskeletal: No contractures, No tenderness Integumentary: Pressure ulcer (Patient with wound 2 left lateral foot, left posterior calf and right spangler that appeared to be healing well with granulation tissue intact without surrounding cellulitis) Neurological: Normal speech, Normal strength at 5/5 x4 extr, Normal tone, Sensation intact - Studies Laboratory Data (last 24 hrs) 03/09/20 22:25: PT 14.3 H, INR 1.22, APTT 33.2 03/09/20 22:25: Sodium 138, Potassium 3.6, BUN 20 H, Creatinine 2.58 H D, Glucose 144 H 03/09/20 22:25: WBC 7.1, Hgb 8.4 L, Hct 26.3 L, Plt Count 216 <Mk Alonso - Last Filed: 03/10/20 01:43> - Studies Laboratory Data (last 24 hrs) 03/09/20 22:25: PT 14.3 H, INR 1.22, APTT 33.2 03/09/20 22:25: Sodium 138, Potassium 3.6, BUN 20 H, Creatinine 2.58 H D, Glucose 144 H 03/09/20 22:25: WBC 7.1, Hgb 8.4 L, Hct 26.3 L, Plt Count 216 <Oleksandr Nettles - Last Filed: 03/10/20 20:13> Assessment and Plan - Plan Assessment Chest pain with history of CAD S/P CABG and recent heart catheterization Chronic heart failure preserved ejection fraction End-stage renal disease on hemodialysis TTS Diabetes mellitus type 2-insulin dependent Hypertension Recent urinary tract infection and wound infections Plan Chest pain with history of CAD S/P CABG and recent heart catheterization: Monitor on telemetry, cardiology consult in place. Continue with Plavix. Trend troponins, DVT prophylaxis heparin 5000 units subcutaneous twice daily. Chronic heart failure preserved ejection fraction: Obtain and continue home medications, appears stable at this time. End-stage renal disease on hemodialysis TTS: Nephrology consult in place, patient did complete dialysis today. Continue to monitor blood pressure closely. Diabetes mellitus type 2-insulin dependent: A.c. HS Accu-Cheks, sliding scale insulin therapy. Continue home dose of insulin when verified. Hypertension: Hold blood pressure medications at this time as patient was initially hypotensive. Recent urinary tract infection and wound infections: Wound and urine cultures sensitive to fluoroquinolones and doxycycline. Patient did not take medications at discharge on 03/02/2020. Continue doxycycline 100 mg p.o. b.i.d. for the time being, patient did receive Levaquin IV in the emergency department and as she is on dialysis she will likely need to have another dose after dialysis on Friday. Urine culture obtained, will follow. Discharge Plan: Home Plan to discharge in: 24 Hours - Advance Directives Does patient have a Living Will: Yes Does patient have a Durable POA for Healthcare: Yes - Code Status/Comfort Care Code Status Assessed: Yes (Full code) Critical Care: No Time Spent Managing Pts Care (In Minutes): 55 <Mk Alonso - Last Filed: 03/10/20 01:43> - Plan Agree with plan as noted above by Mk Alonso. Patient with chest pain after dialysis, as well as pain "all over". Recent coronary stenting ~2 weeks ago Rule out ACS, possible discharge later today <Oleksandr Nettles - Last Filed: 03/10/20 20:13>
[2020-03-10 01:52] LABS: Urine Blood NEGATIVE (NEG); Urine Glucose NEGATIVE (NEG); Urine Protein 3+ (NEG); Urine Specific Gravity 1.025 (1.005-1.030); Urine pH 5.5 (5.0-7.0)
[2020-03-10] MEDS: HYDROCODONE/APAP 5/325 MG TAB PO PRN ×2 (02:13→13:30)
[2020-03-10] MEDS ORDERED: HYDROCODONE/APAP 5/325 MG TAB ONE (02:32)
[2020-03-10 03:42] VITALS: BMI 25.4
[2020-03-10] MEDS ORDERED: ONDANSETRON 4 MG/2 ML VIAL IV PRN (03:52)
[2020-03-10] MEDS: ACETAMINOPHEN 500 MG TAB PO PRN ×2 (04:30→09:40)
[2020-03-10 05:00] VITALS: O2SAT 98
[2020-03-10] MEDS ORDERED: EPOETIN ALFA 10,000 UNIT/ML VIAL IV SCH (05:00)
[2020-03-10 05:28] LABS: Basophils % 1.1 % (0-1.3); Hematocrit 25.2 % (36.0-45.0); Lymphocytes % 30.9 % (15.3-44.8); MPV 7.4 fL (7.6-11.3); RBC Red Blood Cell Count 2.85 M/uL (3.86-4.86)
[2020-03-10 05:51] LABS: Potassium 3.7 mmol/L (3.5-5.1); Troponin I 0.06 ng/mL (0.0-0.045)
[2020-03-10] MEDS: INSULIN -REGULAR HUMAN 50 UNIT/0.5 ML ML SQ SCH ×2 (07:30→11:30)
[2020-03-10 08:18] LABS: Hematocrit 25.4 % (36.0-45.0)
[2020-03-10] MEDS ORDERED: DOXYCYCLINE 100 MG CAP PO SCH (09:00)
[2020-03-10] MEDS ORDERED: MEDIHONEY 44 ML TOPICAL TUBE TOP SCH (09:00)
[2020-03-10] MEDS ORDERED: JUVEN PACKET PO SCH (09:00)
[2020-03-10] MEDS ORDERED: CLOPIDOGREL 75 MG TABLET PO SCH (09:00)
[2020-03-10] MEDS ORDERED: BUPROPRION HCL S.R. 150MG TAB PO SCH (09:00)
[2020-03-10] MEDS ORDERED: COLLAGENASE 30 GM OINTMENT TOP SCH (09:00)
[2020-03-10] MEDS ORDERED: NIFEDIPINE XL 60 MG TABLET PO SCH (09:00)
[2020-03-10] MEDS ORDERED: HEPARIN 5000 UNIT/ML 1 ML VIAL SQ SCH (09:00)
[2020-03-10] MEDS ORDERED: FLUTICASONE 110 MCG/PUFF 12 GM INH IH SCH (09:00)
[2020-03-10] MEDS ORDERED: allopurinoL 100 MG TAB PO SCH (09:00)
[2020-03-10] MEDS: HYDRALAZINE HCL 25 MG TABLET PO SCH ×2 (09:41→13:25)
[2020-03-10] MEDS: GABAPENTIN 100 MG CAP PO SCH ×2 (09:42→13:25)
--- NOTE | 2020-03-10 10:22 | RAD REPORT ---
EXAM DESCRIPTION: RAD - Chest Single View - 03/09/2020 10:45 pm CLINICAL HISTORY: CHEST PAIN COMPARISON: 02/27/2020 FINDINGS: Single frontal radiograph view of the chest. Cardiomediastinal silhouette: Cardiomegaly. Left IJ tunneled hemodialysis catheter with tip in the SV C. Prior median sternotomy. Atherosclerotic calcification thoracic aorta. Lungs: Pulmonary vessel congestion with bilateral interstitial opacities. No pneumothorax. Small righ t pleural effusion with right basilar opacity. Bones: Degenerative change of the spine and shoulders. Upper abdomen: No abnormality identified. IMPRESSION: 1. Cardiomegaly with likely pulmonary edema pattern. 2. Right pleural effusion with likely underlying atelectasis or consolidation. Electronically signed by: Davis Mosquera 03/09/2020 11:14 PM DRUM BUILDER Due to temporary technical issues with the PACS/Fluency reporting system, reports are being signed by the in house radiologist without review as a courtesy to ensure prompt reporting. The interpreting r adiologist is fully responsible for the content of the report.
--- NOTE | 2020-03-10 10:27 | P.CNS ---
Date of Consult: 03/10/20 Reason for Consult: ESRD , fluid and electrolytes management Primary Care Provider: Dr. Fernando Chief Complaint: Chest pain History of Present Illness: a 65-year-old AA woman with past medical history of ESRD on HD TTsat via tunnel ed catheter hypertension, diabetes mellitus, COPD, Ex smoker, , CAD S/P CABG, pt presented for chest pain Pain started yesterday , retrosternal, non radiating , she was admitted recently with similar symptoms , underwent for cardiac cath and required stent placement Pt have Hx of CABG, her pain resolved now , troponin 0.06 now pain resolved Review of Systems: Head and Neck: No red eye. No ear pain. GI: No nausea, no vomiting. : No polyuria, no dysuria, no hematuria. Respiratory: No shortness of breath. Cardiovascular: chest pain resolved today Endocrine: No polydipsia. Skin: leg erythema Neuro: Has neuropathy. Musculoskeletal: No back pain . Physical exam general: AAOX3, NAD , Neck; Supple, No elevated JVD hear: RRR, normal S1,2 no murmur or rub Chest: CTAB, no rales or wheezes Abdomen: Soft , Nt Extremities both leg dressed , erythema A/P ESRD on HD TTsat will cont HD TTsat renal dose meds HD tomorrow chest pain F/U repeated cardiac enzymes pt had PCI recently HTN resume home meds DM as per primary anemia of chronic disease will resume epogen UTI cont ABx LE ulcer cont wound care Total time spent 40 minutes Allergies morphine Allergy (Severe, Verified 02/27/20 04:42) Anaphylaxis vancomycin Allergy (Intermediate, Verified 02/27/20 04:42) Shortness of breath basil Allergy (Verified 02/27/20 04:42) Nausea/Vomiting tramadol Allergy (Verified 02/27/20 04:42) Nausea/Vomiting trazodone Allergy (Verified 02/27/20 04:42) Nausea/Vomiting nitroglycerin Adverse Reaction (Mild, Verified 02/27/20 04:42) Nausea/Vomiting Home Medications: Buproprion S.r. [Wellbutrin Sr*] 1 tab PO BID 02/27/20 Clopidogrel Bisulfate [Plavix*] 75 mg PO DAILY 02/27/20 Collagenase [Santyl Ointment*] 1 appl TOP DAILY 02/27/20 Fluticasone [Flovent Hfa 110*] 2 puff IH DAILY 02/27/20 Hydralazine [Apresoline*] 2 tab PO TID 02/27/20 Nifedipine [Nifedipine ER] 1 tab PO DAILY 02/27/20 allopurinoL [Allopurinol] 1 tab PO BID 02/27/20 Doxycycline Hyclate 100 mg PO BID #14 tablet 03/02/20 Epoetin [Retacrit] 10,000 unit IV EVERY HD vial 03/02/20 Gabapentin [Neurontin*] 100 mg PO TID #90 cap 03/02/20 Patrice [Patrice*] 1 pkt PO BID #60 powd.pack 03/02/20 Medihoney [Medihoney Woundcare Gel*] 1 appl TOP DAILY #1 tube 03/02/20 - Past Medical/Surgical History Diabetic: Yes -: COPD -: Hypertension -: CAD, CABG x4 vessels (August 2017) -: Diabetes mellitus type 2, insulin-dependent -: Chronic combined systolic/diastolic CHF -: Uterine cancer status post hysterectomy -: Chronic renal disease, stage IV -: TB as a child - Negative 2017 -: Hyperlipidemia -: Iron deficiency anemia -: WEST -: Likely obstructive sleep apnea -: Rectal surgery -: Hysterectomy -: Cholecystectomy -: Gastric surgery -: Appendectomy -: CABG x4 vessel -: RLE Femoral popliteal bypass -: Left great toe amputation Psychosocial/ Personal History: The patient is a . Her son lives with her. She has 3 children. - Family History Brother Medical History: Heart disease, Hypertension, Cancer Notes: Father Medical History: Heart disease, Lung disease, Cancer Notes: - Prostate surgery - Hemorrhage Mother Medical History: GI disease Notes: Sister Medical History: Heart disease Notes: - Respiratory failure - Social History Smoking Status: Current every day smoker Alcohol use: No CD- Drugs: No Caffeine use: Yes Place of Residence: Home Physical Examination Temp Pulse Resp BP Pulse Ox 97.3 F 57 18 125/63 98 03/10/20 08:00 03/10/20 09:41 03/10/20 08:00 03/10/20 09:41 03/10/20 08:00 Laboratory Data (last 24 hrs) 03/09/20 22:25: PT 14.3 H, INR 1.22, APTT 33.2 03/09/20 22:25: Sodium 138, Potassium 3.6, BUN 20 H, Creatinine 2.58 H D, Glucose 144 H 03/09/20 22:25: WBC 7.1, Hgb 8.4 L, Hct 26.3 L, Plt Count 216
[2020-03-10] MEDS ORDERED: EPOETIN ALFA-EPBX 10,000 UNIT/ML VIAL IV SCH (10:30)
[2020-03-10 18:29] VITALS: BP 117/60; TEMP 97.4
[2020-03-10] MEDS ORDERED: BUDESONIDE 0.5 MG/2 ML NEB IH SCH (20:00)
--- NOTE | 2020-03-10 20:22 | P.DS ---
Admission Date: 03/10/20 Discharge Date: 03/10/20 Primary Care Provider: Dr. Fernando Disposition: ROUTINE DISCHARGE Discharge Condition: GOOD Reason for Admission: Chest pain Consultations: Cardiology -Dr. García Procedures: Problem List: Chest pain with history of CAD S/P CABG and recent heart catheterization Chronic heart failure preserved ejection fraction End-stage renal disease on hemodialysis TTS Normocytic anemia Diabetes mellitus type 2-insulin dependent Hypertension Recent urinary tract infection and wound infections Brief History of Present Illness: 64yo female, with h/o multiple recent hospitalizations presents to ED for chest pain and hypotension. Patient had dialysis today and shortly after began having chest pain. Described as pressure like as if somebody is sitting on her chest, pain radiates to left scapular area and is associated with mild shortness of breath. Patient with recent cardiac catheterization for NSTEMI on 02/28/2020. Patient had balloon angioplasty of the right coronary artery and stenting of the left circumflex. At that time patient had urine culture growing Enterobacter which was sensitive to fluoroquinolones and multiple wounds on the lower extremities with wound cultures growing MRSA and Pseudomonas. Patient condition improved and she was discharged with oral Levaquin and doxycycline at that time. Patient did not fill these prescriptions or take them as she states she could not afford them due to insurance status. Patient was given 250 cc normal saline bolus in the emergency department, blood pressure improved to 106 systolic, pain still persisting at this time, no acute changes on EKG, chest x-ray demonstrates right-sided pleural effusion similar to previous, initial troponin 0.09. Patient sees wound healing Center for wounds to lower extremities, was seen yesterday in wound healing center who stated that her wounds are progressing well. Hospital Course: Patient's troponins were trended and improved, she reported resolution of her pain and feeling better after receiving Gabapentin. Cardiology was consulted and recommended no further evaluation / procedures needed at this time. Nephrology was consulted for possible hemodialysis but felt patient was at ~baseline and can continue as normally scheduled (). Her urine was still positive for leuk esterase, and she was restarted on IV Levaquin and doxycycline. A long discussion was had with the patient on importance of medication compliance. She reported inability to afford her recent prescriptions from prior hospitalization. She reached out to her druze who was able to help the patient bring her cost to something more affordable. She was discharged home to resume home medications as prescribed, and to resume prior antibiotic prescription as prescribed as well. She reports no longer having a PCP and it was recommended she establish with a new PCP and see them in the next 1-2 weeks. Vital Signs/Physical Exam: Temp Pulse Resp BP Pulse Ox 97.4 F 66 18 117/60 98 03/10/20 16:00 03/10/20 16:00 03/10/20 16:00 03/10/20 16:00 03/10/20 16:00 General: Alert, In no apparent distress, Oriented x3 HEENT: Sclerae nonicteric Neck: Supple Respiratory: Diminished ( at bases) Cardiovascular: Regular rate/rhythm, Edema (1-2+ bilateral to knees) Gastrointestinal: Soft and benign, No tenderness Integumentary: No significant lesion Neurological: Normal speech, Normal affect Laboratory Data at Discharge: WBC 6.6 K/uL (4.3-10.9) 03/10/20 05:12 Hgb 8.2 g/dL (12.0-15.0) L 03/10/20 08:09 Hct 25.4 % (36.0-45.0) L 03/10/20 08:09 Plt Count 205 K/uL (152-406) 03/10/20 05:12 PT 14.3 SECONDS (9.5-12.5) H 03/09/20 22:25 INR 1.22 03/09/20 22:25 APTT 33.2 SECONDS (24.3-36.9) 03/09/20 22:25 Sodium 137 mmol/L (136-145) 03/10/20 05:12 Potassium 3.7 mmol/L (3.5-5.1) 03/10/20 05:12 BUN 21 mg/dL (7-18) H 03/10/20 05:12 Creatinine 2.75 mg/dL (0.55-1.3) H 03/10/20 05:12 Glucose 68 mg/dL (74-106) L 03/10/20 05:12 Magnesium 2.0 mg/dL (1.8-2.4) 03/10/20 05:12 Troponin I 0.05 ng/mL (0.0-0.045) H 03/10/20 13:17 Home Medications: Buproprion S.r. [Wellbutrin Sr*] 1 tab PO BID 02/27/20 Clopidogrel Bisulfate [Plavix*] 75 mg PO DAILY 02/27/20 Collagenase [Santyl Ointment*] 1 appl TOP DAILY 02/27/20 Fluticasone [Flovent Hfa 110*] 2 puff IH DAILY 02/27/20 Hydralazine [Apresoline*] 2 tab PO TID 02/27/20 Nifedipine [Nifedipine ER] 1 tab PO DAILY 02/27/20 allopurinoL [Allopurinol] 1 tab PO BID 02/27/20 Doxycycline Hyclate 100 mg PO BID #14 tablet 03/02/20 Epoetin [Retacrit] 10,000 unit IV EVERY HD vial 03/02/20 Gabapentin [Neurontin*] 100 mg PO TID #90 cap 03/02/20 Patrice [Patrice*] 1 pkt PO BID #60 powd.pack 03/02/20 Medihoney [Medihoney Woundcare Gel*] 1 appl TOP DAILY #1 tube 03/02/20 Patient Discharge Instructions: follow up with PCP within 1 week. follow up with Cardiology as previously scheduled. continue dialysis as scheduled. continue home medications as previously prescribed. Continue antibiotics as previously prescribed. no changes to your medications on discharge. Diet: Renal (& heart healthy) Activity: Fall precautions Followup: Unknown,U [Primary Care Provider] - Time spent managing pt's care (in minutes): 40
[2020-03-14 04:20] LABS: HBsAG Nonreactive (Nonreactive)
== END 2020-03-10 16:29 | disposition home or self-care (01) ==
LOC: ER 22:04 → ERHOLD 03-10 01:20 → 2ND 03-10 02:16
PROVIDERS: ADMIT Hospitalist; ATTEND Hospitalist
DX: R07.9 Chest pain, unspecified (principal); I25.10 Atherosclerotic heart disease of native coronary artery without angina pectoris; I13.2 Hypertensive heart and chronic kidney disease with heart failure and with stage 5 chronic kidney disease, or end stage renal disease; E11.22 Type 2 diabetes mellitus with diabetic chronic kidney disease; N18.6 End stage renal disease; Z20.828 Contact with and (suspected) exposure to other viral communicable diseases; Z95.1 Presence of aortocoronary bypass graft; Z99.2 Dependence on renal dialysis; R94.31 Abnormal electrocardiogram [ECG] [EKG]; I50.42 Chronic combined systolic (congestive) and diastolic (congestive) heart failure; D63.1 Anemia in chronic kidney disease; I21.4 Non-ST elevation (NSTEMI) myocardial infarction; Z95.5 Presence of coronary angioplasty implant and graft; Z79.02 Long term (current) use of antithrombotics/antiplatelets; Z79.4 Long term (current) use of insulin; J44.9 Chronic obstructive pulmonary disease, unspecified; Z87.891 Personal history of nicotine dependence; N39.0 Urinary tract infection, site not specified; Z85.42 Personal history of malignant neoplasm of other parts of uterus; E78.5 Hyperlipidemia, unspecified; D50.9 Iron deficiency anemia, unspecified; G47.33 Obstructive sleep apnea (adult) (pediatric); Z89.412 Acquired absence of left great toe; E11.622 Type 2 diabetes mellitus with other skin ulcer; E11.621 Type 2 diabetes mellitus with foot ulcer; L89.899 Pressure ulcer of other site, unspecified stage
CPT/HCPCS: 96365; 96367; 93005; 87040 ×2; 85025 ×2; 80048 ×2; 36415; 83735; 85610; 82947 ×3; 83605; 85730; 85018; 85014; 81003; 84484 ×3; 86705; 86317; 84145; 83880; 87340; 71045; 51702; 99285; U0003; J1644; J7050; J3590

== ENCOUNTER 2020-04-26 14:42 | Inpatient (IN) | payer OTHER ==
--- OUTSIDE RECORDS SUMMARY | 2020-04-26 15:36 | XMS REPORT | Clinical Summary ---
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 [...] Medicine MD Lisa vascular diseas e) with claudmaxine on ([facility]) (Primary Dx) 12/16/2019 Orders Only Shiva Anderson, GUILHERME after 04/26/2019 Family History Medical History Relation Name Comments [...] 2019 05/26/2018, 02/04/2017, 01/11/2014, Additional history exists PNEUMOCOCCAL 65+ YRS (1 of 1 - 2020 01/11/2014 [id number]) DEPRESSION SCREENING (12+) 03/31/2020 COLON CANCER SCREENING ANNUAL FOBT 12/19/2020 12/20/2019 DIABETIC FOOT EXAM 12/21/2020 12/22/2019 Implants Implanted Type Area Engine Tester Device Shelf Model / Identifier Expiration Serial / Date Lot Device Clsr Angio-Seal Vip 8fr [id number] - [id number] Cardiovascular N/A: ST EVELYN 01/28/2018 [id number] / Implanted: Qty: 1 on 05/12/2017 by Joana Powers, Sandra Carter MD at [facility] Groin MED:CARDIAC / SURG [id number] Grft Eptfe-Heparin Rng [id number] - [id number] Graft/P atch Right: WL GORE & 04/09/2021 [id number] / Implanted: Qty: 1 on 08/05/2017 by Mariela Santamaria MD at [facility] Leg ASSC:MED PRDT [id number] / N/A Description:GORE PROPATEN VASCULAR GRAFT REMOVABLE [...] SARS-COV2/RT-PCR Routine 12/23/2019 3:59 Results for this ([facility]) AM CDT procedure are [...] procedure are in the results section. after 04/26/2019 Results EKG-SCANNED (01/05/2020 8:40 AM CDT) Narrative [...] POC-Glucose Meter 102Comment: : 70 - 110 KATHRYN FOOTE TESTED AT [facility] mg/dL [facility] [address] [facility] [id number]: Night Worker/Technicia n ID = [id number] for Anne Salgado Specimen Blood Performing Organization Address City/State/Zipcode Phone Number [facility] [address] [place] [address] CENTER CBC with platelet count [...] LABORATORY e Specimen Blood Performing Organization Address [facility] Phone Number [facility] [address] [place], [place] [address] Comprehensive metabolic panel (01/01/2020 [...] DIALYSIS PATIENTS. Specimen Blood Narrative Performed At Night Worker ID - ADMIN [facility] [employer] [facility] Performing Organization Address [facility]/Zipcode Phone Number [facility] [address] [place], [place] [address] Magnesium (12/31/2019 6:05 AM CDT) Pathologist Sig nature Magnesium 1.6 1.5 - 3.0 mg/dL [facility] Specimen Blood Narrative Performed At Night Worker ID - ADMIN [facility] [employer] [facility] Performing Organization Address [facility]/Zipcode Phone Number [facility] [address] [place], [place] [address] Anaerobic culture (12/30/2019 1:59 PM CDT)Only the most recent of2 results within the time period is included. Pathologist Sig nature Result No anaerobes isolated [facility] Result <1+ Coagulase negative [facility] Staphylococcus (A) LABORATORY Specimen Tissue - Structure of left foot (body st ructure) Organism Antibiotic Method Susceptibility Coagulase negative Staphylococcus Oxacillin 1: Susceptible Coagulase negative Staphylococcus Rifampin <=0.5: Susceptible Coagulase negative Staphylococcus Vancomycin <=0.5: Susceptible Performing Organization Address [facility] Cent[facility]ode Phone Number [facility] [address] [place] [phone] Surgically obtained culture + gram stain (12/30/2019 1:59 PM CDT)Only the most recent of2 resultswithin the time period is included. Result 2+ Stenotrophomonas [facility] maltophilia (A) LAB[facility]ATORY Gram Stain Result <1+ WBCs [facility] Gram Stain Result No organisms seen [facility] Specimen Tissue - Structure of left foot (body st ructure) Organism Antibiotic Method Susceptibility Stenotrophomonas maltophilia Levofloxacin 1: Susceptible Stenotrophomonas maltophilia Trimethoprim + Sulfamethoxazole <=20: Susceptible Performing Organization Address City/[facility] Cent[facility]ode Phone Number [facility] [address] [place], [place] [address] Tissue Exam (12/30/2019 1:38 PM CDT) Case Report Surgical Pathology Report Case: [id number] [facility] Authorizing Provider: Tala Lemus DPM Collected: 12/30/2019 01:38 PM LABORATORY Ordering Location: [address] Med/Surg Received: 12/31/2019 06:52 AM Pathologist: Jovita Griffith MD Specimens: A) - Soft Tiss ue, Other, left 5th proximal phalanx B) - [place] tarsal, Left, left 5th metatarsal DIAGNOSIS A. BONE, LEFT FIFTH PROXIMAL PHALANX, BIOPSY: [facility] Electronically - SKIN WITH UNDERLYING CA RTILAGE WITH SURROUNDING ACUTE AND CHRONIC INFLAMMATION LABORATORY signed by Jovita Griffith MD B. BONE, LEFT FIFTH METATARSAL, BIOPSY: on 01/04/2020 at - ACUTE OSTEOMYELITIS 10: 21 AM - SEPARATE FRAGMENTS OF F IBROCONNECTIVE TISSUE WITH ABSCESS, NECROSIS AND GRANULATION TISSUE FORMATION Signing Pathologist Direct Phone Line: CPT Code(s) MG/ew [facility] [address]247 x2 LABORATORY 87973 x2 CLINICAL HISTORY Osteomyelitis of left [facility] [...] 0.7 x 0.3 x 0.3 cm. [facility] The specimen is submitted entirely into A1 and into decal solution. LABORATORY Specimen B is received in fi xative labeled with the patient's name and medical record number and designated as "metatarsal left", consists of four red-brown tissue and bone fragments measuring 2.0 x 0.5 x 0.5 cm in aggregate. the specimen is entirely B1 and into decal solution. MG/ew MICROSCOPIC A-B. Performed. [facility] Gross assessment [facility] was performed at Hospital, Department LABORATORY of Pathology, [address] [place] [address], Technical [facility] component was Medical Center, LABORATORY performed at Department of Pathology, [address] [place] [address], Professional [facility] component was Hospital, Department LABORATORY performed at of Pathology, [address] [place], [place] [address], Specimen Tissue - Soft tissue (navigational alda pt) Tissue specimen (specimen) - Metatarsal, Left Narrative Performed At This result has an attachment that is no t available. Performing Organization Address City/State/Zipcode Phone Number [facility] [address] [place] [address] SARS-CoV2/RT-PCR (Asymptomatic ONLY) (12/30/2019 5:11 AM CDT)Only the most recent of3 resultswithin the time period is included. SARS-COV2/RT-PCR Negative Not Detected, KATHRYN FOOTE Negative, See [facility] external report CENTER for linked test SARS-COV-2 [facility] JANET FOOTE PERFORMING LAB [facility] Specimen Other - Nasopharyngeal wall structure (b yocasta structure) Narrative Performed At Negative result for this test determines that KATHRYN PANDYASam [facility] SARS-CoV-2 RNA was not present in the [...] the Act. Fact Sheet for Healthcare Providers: https://www.[employer]gent [employer].FRS/sites/default/files/pro duct/documents/Fact_Sheet_HC_Providers_Janet_SA RS-CoV-2.pdf Fact Sheet for Healthcare Patients: https://www.[employer].FRS/sites/default/files/pro duct/documents/Fact_Sheet_Patients_Lyra_SARS-C oV-2.pdf Performing Laboratory: [facility] [address] [place] [address]. [place] [address] Performing Organization Address City/State/Zipcode Phone Number [facility] [address] [place] [address] CENTER MR lower extremity without IV contrast left side (12/27/2019 4:30 PM CDT) Specimen Narrative Performed At FINAL REPORT [employer] [facility] MRI OF THE LEFT FOOT WITHOUT CONTRAST [...] Report Verified Date/Time: 12/27/2019 16:55:07 Reading Location: [facility] Radiology Reading Room Procedure Note [...] Verified Date/Time: 12/27/2019 1 6:55:07 Reading Location: [facility] Radiology Reading Room Performing Organization Address City/State/Zipcode Phone Number [employer] [facility] Wound culture + gram stain (12/27/2019 12:02 PM CDT) Result 1+ Stenotrophomonas [facility] maltophilia (A) LABORATORY Result 1+ Kary parapsilosis [facility] (A) [facility] Gram Stain Result <1+ WBCs [facility] Gram Stain Result <1+ gram negative rods [facility] Specimen Wound - Structure of right foot (body st ructure) Organism Antibiotic Method Susceptibility Stenotrophomonas maltophilia Levofloxacin 2: Susceptible Stenotrophomonas maltophilia Trimethoprim + Sulfamethoxazole <=20: Susceptible Performing Organization Address City/State/Zipcode Phone Number [facility] [address] [facility], [facility] 878 TRANSFUSION SERVICE REPORT - SCAN (12/26/2019 6:02 PM CDT)Only the most recent of2 resultswithin the time period is included. Narrative Performed At This result has an attachment that is no t available. CTA AAA and Runoff (12/26/2019 3:27 PM CDT) Specimen Narrative Performed At Addendum Begins [employer] [facility] REPORT STATUS:A I agree with the nonvascular findings wi th exceptions and emphasis as below: *Moderate right and small left pleural e ffusions are partially visualized. *Large volume ascites. *Diffuse anasarca *The reflux of contrast into the hepatic veins is concerning for volume overload. Signed: Gerry Crum MD Report Verified Date/Time: 12/27/2019 11:38:28 Reading Location: [facility] Reading Room - [place] [address] Add[address]um Ends FINAL REPORT CT angiography of the abdominal aorta an d runoff, 26-Dec-19 INDICATION: This is a 64 year old female with with lower leg penetrating trauma presents for assessme nt. TECHNIQUE: Spiral acquisition before and during intravenous contrast administration using a NexPlanar multidetector CT scanner. Images were obtained before [...] identified. However, significant calcification identified of the [place] left SFA, for e xample at image [...] righ t popliteal artery is patent, with [id number] diffuse calcificat ion identified with no obstructive [...] rosclerosis identified. 4. In the right, the [place] right SFA is not filled by contrast [...] regard ing the non-vascular findings by the Social Psychologist Radiologist. Signed: Shlomo Dockery MD Report Verified Date/Time: 12/27/2019 07:59:51 Reading Location: [facility] P027 CT Reading Room Procedure Note Interface, External [...] Date/Time: 12/27/2019 1 1:38:28 Reading Location: [facility] Reading Room - [place] [address] Addendum Ends FINAL REPORT CT angiography [...] identified. However, significant calcification identified of the [place] left SFA, for e xample at image [...] righ t popliteal artery is patent, with [id number] diffuse calcificat ion identified with no obstructive [...] rosclerosis identified. 4. In the right, the [place] right SFA is not filled by contrast [...] regardi ng the non-vascular findings by the Social Psychologist Radiologist. Signed: Shlomo Dockery MD Report Verified Date/Time: 12/27/2019 0 7:59:51 Reading Location: [place] [address] CT Reading Room Performing Organization Address City/[facility] Cent[facility]ode Phone Number GE RIS Prepare Leuko-Red RBC (12/25/2019 11:54 PM CDT) Pathologist Sig nature CROSSMATCH COMPATIBLE SAFETRACE TX Unit ABO O Pos SAFETRACE TX UNIT NUMBER [id number] SAFETRACE TX Status TX_TIMEINCHART SAFETRACE TX Blood Bank Product RED BLOOD CELLS SAFETRACE TX PRODUCT CODE [id number] SAFETRACE TX Specimen Other Performing Organization Address [facility] Phone Number SAFETRACE TX Transfuse Leuko-Red RBC (12/24/2019 7:06 PM CDT)ABORH, manual (12/24/2019 8:25 AM CDT) Pathologist Sig nature Rh Factor POS [facility] ABO Grouping OComment: PINK TOP [facility] 12/24/19 @ 0824 HOSPITAL Specimen Blood Performing Organization Address [facility] Phone Number [facility] [address] [place] [address] [phone] [facility] Type and screen, automated (12/24/2019 6:08 AM CDT) Pathologist Sig nature ABO/RH AUTOMATED O [facility] (BEAKER) POSITIVEComment [facility] : ECHO Ab Scrn NEGATIVEFreeman Neosho Hospitalment [facility] : [facility] Specimen Blood Performing Organization Address [facility] Centercoct Phone Number [facility] [address] [place] [address] [phone] [facility] MR lower extremity joint only without IV [...] Report Verified Date/Time: 12/23/2019 16:10:32 Reading Location: [facility] C013X [facility] Reading Room Procedure Note Interface, External [...] Verified Date/Time: 12/23/2019 1 6:10:32 Reading Location: [facility] B1 C013X [facility] Reading Room Performing Organization Address City/State/Zipcode Phone Number [employer] [facility] MR brain without IV contrast (12/23/2019 3:34 PM CDT) Specimen Narrative Performed At FINAL REPORT [facility] MR, BRAIN, WITHOUT CONTRAST INDICATION: Headache, post [...] 5:43:24 Performing Organization Address City/State/Zipcode Phone Number [employer] [facility] Arterial Doppler Legs Bilateral (12/23/2019 9:38 AM CDT) Specimen Narrative Performed At FINAL REPORT [employer] [facility] EXAM: Bilateral Lower Extremity Arterial Ultrasound HISTORY: [...] Report Verified Date/Time: 12/23/2019 11:22:31 Reading Location: [facility] Procedure Note Interface, External Ris In [...] Verified Date/Time: 12/23/2019 1 1:22:31 Reading Location: [facility] Performing Organization Address City/[facility]/Zipcode Phone Number [employer] Ammonia (12/23/2019 4:05 AM CDT)Only the most recent of2 resultswithin the time period is included. Pathologist Sig nature Ammonia 36 17 - 80 mol/L [facility] Specimen Blood Narrative Performed At Night Worker ID - ADMIN [employer] LABORATORY Performing Organization Address [facility] Centercoct Phone Number [employer] [facility] [address] [place], [place] [address] C-Reactive Protein (12/21/2019 4:39 AM CDT) Pathologist Sig nature CRP 1.63 (H) 0.00 - 0.50 mg/dL [facility] Specimen Blood Narrative Performed At Night Worker ID - ADMIN [employer] LAB[facility] Performing Organization Address [facility]/Zipcode Phone Number [facility] [address] [place], [place] [address] US abdomen complete (12/20/2019 9:17 PM CDT) Specimen Narrative Performed At FINAL REPORT [employer] [facility] INDICATION: thrombocytopenia / eval for hepatosplenomegaly COMPARISON: [...] 2:02:21 Performing Organization Address City/State/Zipcode Phone Number [employer] CT brain without IV contrast (12/20/2019 4:04 PM CDT) Specimen Narrative Performed At FINAL REPORT [employer] CT, BRAIN, WITHOUT CONTRAST INDICATION: Head trauma, [...] LABORATORY Specimen Blood, Arterial Performing Organization Address City/[facility]/Zipcode Phone Number [facility] [address] [place], [place] [address] XR foot 2 views right (12/20/2019 11:55 AM CDT) Specimen Narrative Performed At FINAL REPORT [employer] TECHNIQUE: Two views of the right foot [...] Report Verified Date/Time: 12/20/2019 15:15:25 Reading Location: [facility] Radiology Readin g Room Procedure Note Interface, [...] Verified Date/Time: 12/20/2019 1 5:15:25 Reading Location: [facility] Radiology Readin g Room Performing Organization Address City/State/Zipcode Phone Number [facility] XR foot 2 views left (12/20/2019 11:55 AM CDT) Specimen Narrative Performed At FINAL REPORT [facility] TECHNIQUE: Two views of the right [...] Report Verified Date/Time: 12/20/2019 15:15:25 Reading Location: [facility] Procedure Note Interface, External Ris In [...] Verified Date/Time: 12/20/2019 1 5:15:25 Reading Location: [facility] Radiology [facility] Room Performing Organization Address City/[facility]/Zipcode Phone Number GE RIS Occult blood, stool (12/20/2019 6:19 AM CDT) Pathologist Sig nature Occult blood Negative Negative [facility] Specimen Stool - Feces (substance) Performing Organization Address City/[facility] Centercode Phone Number [facility] [address] [place], [place] [address] Peripheral Blood Smear - Path Review (12/20/2019 5:06 AM CDT) RBC Morphology Target Cells [facility]ORY Nucleated Red Blood Cells Pathologist Review Normochromic normocytic [facility] anemia with a few LABORATORY target cells, nucleated RBCs and basophilic stippling. No increase in schistocytes. WBCs normal in number and morphology. Thrombocytopenia with normal platelet morphology. Pathologist: Jovita Griffith M.D. [facility] [employer] (electronic signature) LABORATORY Specimen Blood Performing Organization Address [facility] Phone Number [facility] [place], [place] [address] Vitamin B12 and Folate (12/20/2019 5:06 AM CDT) Pathologist Sig pending sale to [facility] Vitamin B12 1,431 (H) 211 - 911 pg/mL [facility] Folate 17.00 >=5.4 ng/mL [facility] Specimen Blood Narrative Performed At Night Worker ID - ADMIN [facility] [employer] [facility] Performing Organization Address [facility] Centercode Phone Number [facility] [address] [place], [place] [address] TSH/Free T4 If Indicated (12/20/2019 5:06 AM CDT) Pathologist Sig pending sale to [facility] TSH 21.210 (H) 0.350 - 5.500 uIU/mL [facility] Y Specimen Blood Narrative Performed At Night Worker ID - ADMIN [employer] LABORATORY Performing Organization Address [facility] Centercode Phone Number [facility] [employer] [facility] [address] [place] [address] [place] [address] PT/aPTT (12/20/2019 5:06 AM CDT) Pathologist Sig nature Protime 13.5 (H) 9.3 - 12.0 sec [facility] INR 1.25 <=5.90 [facility] PTT 38.2 (H) 23.0 - 35.0 sec [facility] Specimen Blood Narrative Performed At RECOMMENDED COUMADIN/WARFARIN INR THERAP Y RANGES [facility] STANDARD DOSE: 2.0 - 3.0 Includes: PROPHYLAXIS for venous thrombosis, systemic embolization; TREATMENT for venou s thrombosis and/or pulmonary embolus. HIGH RISK: Target INR is 2.5-3.5 for patients with mec hanical heart valves. Final Information (Auto Output) Final Information (Auto Output) Final Information (Auto Output) Performing Organization Address City/[facility]/Zipcode Phone Number [facility] [address] [place] [phone] Iron, TIBC, % sat. (without ferritin) (12/20/2019 5:06 AM CDT) Pathologist Sig pending sale to [facility] Iron 92.0 45.0 - 170.0 [facility] ug/dL TIBC 151 (L) 250 - 550 ug/dL [facility] Iron % Saturation 61 (H) 20 - 55 % [facility] Specimen Blood Narrative Performed At Night Worker ID - ADMIN [facility] Performing Organization Address [facility]/Zipcode Phone Number [facility] [address] [place] [phone] ROGER Titer & Pattern (12/20/2019 5:06 AM CDT) Pathologist Sig nature ROGER Titer 1:40 [facility] ROGER Pattern Speckled [facility] Specimen Blood Performing Organization Address City/State/Zipcode Phone Number [facility] [address] [place] [address] CENTER [place] / lambda light chains, serum (12/20/2019 5:06 AM CDT) [place] Lt 474.4 (H) 3.3 - 19.4 [facility] Chain,Free mg/L [facility] Lambda Lt 225.6 (H) 5.7 - 26.3 [facility] Chain,Free mg/L INC[facility] [place]/Lambda,Fr 2.10 (H) 0.26 - 1.65 [facility] [...] Lab [facility] EZ [facility] [address] [place] [address] Jaguar Stein MD, PhD, CORI Performing Organization Address City/[facility]co[facility] Phone Number [place] [address] INCORPORATED [address] [facility] Fibrinogen (12/20/2019 5:06 AM CDT) Pathologist [facility] Fibrinogen 340 200 - 400 mg/dL [facility] Specimen Blood Narrative Performed At Final Information (Auto Output) [facility] Performing Organization Address [facility] Phone Number [facility] [address] [place], [place] [address] D-dimer (12/20/2019 5:06 AM CDT) Pathologist [facility] nature D-Dimer, Quant 1.09 (H) <0.50 mg/L [facility] Specimen Blood Narrative Performed At REGARDING D-DIMER RESULTS: The 98% NPV (Negative Predi ctive [facility] Value) for DVT/PE exclusion is 0.50 mg/L FEU as sugges merna by the piece work inspector and as approved by the FDA. Final Information (Auto Output) Performing Organization Address [facility] Phone Number [facility] [address] [place], [place] [address] Reticulocyte count (12/20/2019 5:06 AM CDT) Pathologist Sig nature % Retic 5.9 (H) 0.4 - 2.9 % [facility] Specimen Blood Performing Organization Address City/[facility]/Zipcode Phone Number [facility] [address] [place], [place] [address] Anti-Nuclear Antibody (ROGER) (12/20/2019 5:06 AM CDT) Pathologist Sig nature ROGER Positive (A) Negative [facility] Specimen Blood Narrative Performed At Test performed by IFA method. [facility] Performing Organization Address City/[facility]/Zipcode Phone Number [facility] [address] [place] [address] CENTER T4, free (12/20/2019 5:06 AM CDT) Pathologist Sig nature Free T4 0.52 (L) 0.90 - 1.80 ng/dL [facility] Specimen Blood Narrative Performed At Night Worker ID - ADMIN [facility] Performing Organization Address [facility] Centercode Phone Number [facility] [address] [place], [place] [address] Protein electrophoresis, serum (12/20/2019 5:06 AM CDT) Albumin Fraction 2.4 (L) 3.5 - 5.5 [facility] g/dL [facility] Alpha 1 Fraction 0.4 0.2 - 0.4 [facility] g[facility]dL [facility] Alpha 2 Fraction 0.4 (L) 0.5 - 0.9 [facility] g/dL [facility] Beta Fraction 0.8 0.6 - 1.1 [facility] g/dL [facility] Gamma Globulin 2.3 (H) 0.7 - 1.7 [facility] Fraction g/dL [facility] Interpretation Decreased albumin, [facility] suggestive of renal [facility] damage. Polyclonal [facility] elevation of gamma fraction, suggesting chronic inflammatory response. No monoclonal bands detected. Pathologist: KATHRYN Rothman MD (electronic [facility] signature) [facility] Protein, Total 6.3 6.0 - 8.3 [facility]'Sam gm/Formerly [facility] Specimen Blood Narrative Performed At Night Worker ID - AURORA Pierre [facility] [place] Performing Organization Address City/[facility]/Zipcode Phone Number [facility] [address] [place] [phone] CENTER Haptoglobin (12/20/2019 5:06 AM CDT) Pathologist Sig nature Haptoglobin <8 (L) 14 - 258 mg/dL [facility] Specimen Blood Narrative Performed At Night Worker ID - AURORA Pierre [facility] Performing Organization Address City/[facility]/Zipcode Phone Number [address] [address] CENTER Ferritin (12/20/2019 5:06 AM CDT) Pathologist Sig nature Ferritin 595.00 (H) 10.00 - 291.00 ng/mL [facility] Specimen Blood Narrative Performed At Night Worker ID - ADMIN [facility] Performing Organization Address [facility] Phone Number [facility] [address] [place], [place] [address] Lactate dehydrogenase (LDH) (12/19/2019 5:35 AM CDT) Pathologist Sig nature LDH 178 107 - 206 U/L [facility] Specimen Blood Narrative Performed At Night Worker ID - ADMIN [facility] Performing Organization Address [facility] Phone Number [facility] [address] [place], [place] [address] Basic Metabolic Panel (12/19/2019 [...] DIALYSIS PATIENTS. Specimen Blood Narrative Performed At Night Worker ID - ADMIN [facility] Performing Organization Address City/State/Zipcode Phone Number [facility] [address] [place] [phone] Hepatitis C antibody (12/16/2019 4:02 PM CDT) Pathologist Sig nature Hepatitis C Ab Nonreactive Nonreactive [facility] Specimen Blood Narrative Performed At Night Worker ID - [facility] Performing Organization Address City/State/Zipcode Phone Number [address] [address] CENTER Hepatitis B core antibody, total (12/16/2019 4:02 PM CDT) Pathologist Sig nature Hep B Core Total Ab Nonreactive Nonreactive [facility] Specimen Blood Narrative Performed At Night Worker ID - [facility] Performing Organization Address City/[facility]/Zipcode Phone Number [address] [address] CENTER Hepatitis B surface antibody (12/16/2019 4:02 PM CDT) Pathologist Sig nature Hep B S Ab <8.0 <8.0 mIU/mL [facility] Specimen Blood Narrative Performed At Night Worker ID - [facility] Performing Organization Address City/State/Zipcode Phone Number [address] [address] CENTER Hepatitis B surface antigen (12/16/2019 4:02 PM CDT) Pathologist Sig nature HBsAg Screen Nonreactive Nonreactive [facility] Specimen Blood Narrative Performed At Night Worker ID - [facility]MIN [facility] Performing Organization Address City/State/Zipcode Phone Number [facility] [address] [place], [place] [phone] IR Tunneled Catheter Insertion [...] the patient's medical record by the nurse. Social Worker Clinical: Arlin Flores M.D. Administrative Accountant: none. Approach: Right internal jugular vein Estimated [...] needle into the right atrium. A 4 Dominican micropuncture sheath was placed and a 0.035 wire was advanced into the IVC. A subcutane ous tunnel was created in the left anterior chest wall by blunt dissec tion. A 23 cm tip to cuff 15.5 Dominican Duraflow 2 catheter was brou ght through [...] Report Verified Date/Time: 12/16/2019 15:06:45 Reading Location: [facility] Radiology [facility] Room Procedure Note Interface, External Ris [...] the patient's medical record by the nurse. Social Worker Clinical: Arlin Flores M.D. Administrative Accountant: none. Approach: Right internal jugular vein Estimated [...] needle into the right atrium. A 4 Dominican micropuncture sheath was placed and a 0.035 wire was advanced into the IVC. A subcutaneo us tunnel was created in the left anterior chest wall by blunt dissec tion. A 23 cm tip to cuff 15.5 Dominican Duraflow 2 catheter was brou ght through [...] Verified Date/Time: 12/16/2019 1 5:06:45 Reading Location: [facility] Radiology Readin Room Performing Organization Address City/State/Zipcode Phone Number [employer] XR chest 1 view portable / bedside (12/16/2019 5:55 AM CDT) Specimen Narrative Performed At FINAL REPORT [employer] TECHNIQUE: Frontal view of the chest. INDICATION: [...] Report Verified Date/Time: 12/16/2019 09:20:06 Reading Location: [facility] Radiology Readin g Room Procedure Note Interface, [...] Verified Date/Time: 12/16/2019 0 9:20:06 Reading Location: [facility] Radiology Readin g Room Performing Organization Address City/State/Zipcode Phone Number [facility] Prothrombin time/INR (12/16/2019 4:08 AM CDT) Pathologist Sig nature Protime 14.1 (H) 9.3 - 12.0 sec [facility] INR 1.31 <=5.90 [facility] Specimen Blood Narrative Performed At RECOMMENDED COUMADIN/WARFARIN INR THERAP Y RANGES [facility] STANDARD DOSE: 2.0 - 3.0 Includes: PROPHYLAXIS for venous thrombosis, systemic embolization; TREATMENT for venou s thrombosis and/or pulmonary embolus. HIGH RISK: Target INR is 2.5-3.5 for patients with mec hanical heart valves. Final Information (Auto Output) Final Information (Auto Output) Performing Organization Address City/State/Zipcode Phone Number [facility] [facility] [address], [place] [address] after 04/26/2019 Insurance Payer Benefit Plan / Subscriber ID Effective Dates Phone Addre ss Type Group [place] MEDICAID [place] [id number] 2011-Present Advance Directives For more information, please contact: [phone] Code Status Date Activated Date Inactivated Comments [...]
--- OUTSIDE RECORDS SUMMARY | 2020-04-26 15:45 | XMS REPORT | Continuity of Care Document ---
:[address] [facility] t Address [address] [place] [address] Care Team Providers Name Role Phone Landy Rendon Primary Care Physician Babatunde PIERRE Attending Clinician Mk PIERRE Attending Clinician LISA MOHAMUD Attending Clinician Unavailable Lisa Mohamud MD Attending Clinician Kj PIERRE, Tracy Attending Clinician Cesia Kearns MD Attending Clinician Neeta THOMPSON, Maggy Attending Clinician Belkis PIERRE, Taj Attending Clinician Monica VANEGAS Attending Clinician Unavailable PRABHJOT DREW Attending Clinician Unavailable OLAYINKA Attending Clinician Unavailable LISA VERDUZCO Attending Clinician Unavailable MAGGIE MCCONNELL Attending Clinician Unavailable Mary FIERRO Attending Clinician Unavailable Mk PIERRE Admitting Clinician LISA MOHAMUD Admitting Clinician Unavailable BERTA BANERJEE Admitting Clinician Unavailable LISA VERDUZCO Admitting Clinician Unavailable MAGGIE MCCONNELL Admitting Clinician Unavailable Mayr FIERRO Admitting Clinician Unavailable Payers Payer Name Policy Type Policy Effective Date Expiration Date Sour ce Number CAMI [id number] [facility] MEDICAIDMEDICAID 00:00:00 - Ghulamromero nicolle [id number]/[id number] Ce nter 2-Present Problems Condition Condition Condition [...] IBS 5-10 [facility] Center Leukocytos Leukocytos Disease Active C [facility] is is 5-10 [facility] PVD PVD Disease Active [facility] (periphera (periphera 5-08 Janna kes - l vascular l vascular 00:00: Me dical disease) disease) 00 Center with with claudmaxine claudicati on on Acute on Acute on [...] rosis of 2-19 [facility]LE [facility] [place] [facility] Medical artery of artery of 00 [...] l mellitus mellitus 00 Center 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 y disorder, disorder, with with long-term long-term current current use of use of insulin insulin Smoker Smoker Disease Active [facility] 2[facility]14 [facility] Frequent Frequent Disease Active [facility] PVCs PVCs 2-12 [facility] Essential Essential Problem Active [facility] (primary[facility] (primary[facility] Luke s - hypertensi hypertensi Me moria on on l [facility] medical center ent Clinics Depression Depression Problem Active C [...] d COPD d COPD Clinics type type [facility] Problem Active [facility] current current [facility] - use of use of Memoria insulin insulin l Outpati ent Clinics History of History of Problem Active C [facility] stroke stroke [facility] Outpati ent Clinics 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2 Problem [...] St disease disease [facility] - [facility] l [facility] Allergies, Adverse Reactions, Alerts Allergy Allergy Status Severity Reaction(s) Onset Inactive Treating Comm ents Source Name Type Date Date Clinician Trazodon Drug Active Nausea And [address] [facility] e Allergy Vomiting 2-12 [facility] - 00:00: Medical 00 [facility] Amoxicil Propensi Active Diarrhea [facility] kenzie-Pot ty to 04-21 [facility] - Clavulan adverse 00:00: Medical ate reaction 00 Center s Basil Propensi Active Nausea Only [address] [facility] ty to 04-21 [facility] - adverse 00:00: Medical reaction 00 Center s Morphine Propensi Active Anaphylaxis C HI [facility] ty to 04-21 [facility] - adverse 00:00: Medical reaction 00 [facility] s Nitrogly Propensi Active Nausea And [address] [address] cerin ty to Vomiting 04-21 ONLY [facility] - adverse 00:00: Medical reaction 00 [facility] s Vancomyc Propensi Active Nausea And [facility] I [facility] in ty to Vomiting 04-21 [facility] - Analogue adverse 00:00: Medical s reaction 00 Center s Vancomyc Adverse Active vomiting [facility] t in HCl Reaction [facility] - [facility] Nitrogly Adverse Active vomiting [facility] cerin Reaction [facility] Morphine Adverse Active headache, [facility] Sulfate Reaction breathing [facility] Adverse Active vomiting [facility] t riley HCl Reaction [facility] Family History Family Member Diagnosis Comments Start Date Stop Date Source Natural father COPD [facility] Natural father Cancer [facility] Natural father [facility]pertension [facility] Natural mother No Known Problem [facility] Natural sister Asthma [facility] Natural sister COPD [facility] Social History Social Habit Start Date Stop Date Quantity Comments Source Sex Assigned At [facility] Cigarettes smoked 2019-12-31 2019-12-31 [facility]pack per 00:00:00 00:00:00 [facility] day) - Reported Cigarette 2019-12-31 2019-12-31 [facility] - pack-years 00:00:00 00:00:00 [facility] Tobacco use and 2019-12-31 2019-12-31 Never used [facility] - exposure 00:00:00 00:00:00 [facility] Alcohol intake 2019-12-31 2019-12-31 Current [facility] - 00:00:00 00:00:00 non-drinker of Medical Ce nter alcohol (finding) History of tobacco 2017-05-12 Current smoker [facility] - use 00:00:00 [facility] Smoking Status Start Date Stop Date Source Former smoker 2019-12-31 00:00:00 2019-12-31 00:00:00 [facility] Medications Ordered Filled Start Stop Current Ordering Indication Dosage Frequency Signature Comments Components Source Medication Medication Date Date Medication? Clinician (SIG) Name Name mupirocin 2019-03 Yes QD Apply [facility] (BACTROBAN) 0-03 topically Lay es - 2 % 10:49: daily. Medical ointment 00 [facility] collagenase 2019-03 Yes QD Apply [facility] t (SANTYL) 0-03 topically [facility] - 250 units/g 10:49: daily. Medi marilin ointment 00 [facility] bumetanide 2019-03 Yes 2mg [id number] Take [address] (BUMEX) 2 0-03 [id number] by mouth 3 [facility] - MG tablet [...] Center and 300 mg at night. ferrous 2020- No 325mg Q.5D Take [address] [...] - MOUTH Memoria TWICE A l DAY [facility] Clinics Advair Advair Yes Franki INHALE 1 [facility] Diskus Diskus Jas DOSE BY [facility] - MOUTH Memoria TWICE l DAILY. Outthe medical center RINSE ent MOUTH Clinics AFTER USE Atorvastati Atorvastati Yes Franki TAKE [address] [facility] n Calcium n Calcium Jas TABLET BY [facility]ukes - MOUTH Memoria EVERY DAY l [facility] Allopurinol Allopurinol Yes Franki TAKE [address] [facility] Jas TABLET BY Lukes - MOUTH Memoria TWICE A l DAY [facility] ent Clinics Gabapentin Gabapentin Yes Franki TAKE [address] [facility] Jas CAPSULE BY Lukes - MOUTH Memoria THREE l TIMES A Outpati DAY ent Clinics Clopidogrel Clopidogrel Yes Franki TAKE [address] [facility] [address] Bisulfate Bisulfate Jas TABLET BY [facility]ukes - MOUTH Memoria EVERY DAY l [facility] ent Clinics Vitamin D Vitamin D Yes Franki TAKE ONE [facility] (Ergocalcif (Ergocalcif Jas CAPSULE BY Lukes - berta) berta) MOUTH ONE Memoria TIME PER l WEEK [facility] ent Clinics Furosemide Furosemide Yes Franki TAKE [...] Jas UNITS [facility] - BELOW THE [facility] SKIN IN l THE Outpati MORNING ent Clinics HydrALAZINE HydrALAZINE Yes Franki TAKE [address] [facility] HCl HCl Jas TABLET BY Lukes - MOUTH Memoria THREE l TIMES A Outpati DAY ent Clinics Vital Signs Vital Name Observation Time Observation Value Comments Source Heart rate 2020-01-01 08:41:00 60 /min [facility] Respiratory rate 2020-01-01 08:41:00 18 /min [facility] Oxygen saturation in 2020-01-01 08:41:00 100 /min [facility] Arterial blood by Medical Ce nter Pulse oximetry Systolic blood 2020-01-01 08:32:00 162 mm[Hg] [facility] Diastolic blood 2020-01-01 08:32:00 73 mm[Hg] [facility] Body temperature 2020-01-01 07:41:00 36.56 Deanne [facility] Body weight 2019-12-30 04:28:00 78.2 kg [facility] BMI 2019-12-30 04:28:00 27.00 kg/m2 [facility] Body height 2019-12-25 21:05:00 170.2 cm [facility] Procedures Procedure Date / Time Performed Performing Clinician [facility] e REPORT OF PROCEDURE - 2020-01-05 08:40:02 Provider, Default [facility] ENDOSCOPY SCAN Scanning [facility] RHYTHM STRIP - SCAN 2020-01-05 08:31:43 Provider, Default [facility] Scanning [facility] RHYTHM STRIP - SCAN 2020-01-05 08:31:42 Provider, Default [facility] RHYTHM STRIP - SCAN 2020-01-05 08:31:40 Provider, Default [facility] CARDIAC CATH REPORT - 2020-01-05 08:31:15 Provider, Default [facility] CARDIAC CATH REPORT - 2020-01-05 08:31:13 Rocco Sepulveda [facility] POCT-GLUCOSE METER 2020-01-01 06:33:00 C[facility] COMPREHENSIVE METABOLIC 2020-01-01 05:37:00 Jericho [facility] CBC W/PLT COUNT & AUTO 2020-01-01 05:37:00 [place] [facility] POCT-GLUCOSE METER 2019-12-31 20:50:00 Cade, [facility] POCT-GLUCOSE METER 2019-12-31 18:00:00 C[facility] POCT-GLUCOSE METER 2019-12-31 11:42:00 C[facility] POCT-GLUCOSE METER 2019-12-31 06:29:00 C[facility] COMPREHENSIVE METABOLIC 2019-12-31 06:05:00 [facility] 2019-12-31 06:05:00 Cade [facility] CBC W/PLT COUNT & AUTO 2019-12-31 06:05:00 [facility] PO[facility]-GLUCOSE METER 2019-12-30 20:13:00 Cade [facility] POCT-GLUCOSE METER 2019-12-30 16:26:00 [facility] SURGICALLY OBTAINED 2019-12-30 13:59:46 Tala Santacruz I [facility] - CULTURE + GRAM STAIN Medical Matthew ter ANAEROBIC CULTURE 2019-12-30 13:59:46 Tala Santacruz [facility] SURGICALLY OBTAINED 2019-12-30 13:54:56 Tala Santacruz [facility] I [facility] - CULTURE + GRAM STAIN Medical [facility] ter ANAEROBIC CULTURE 2019-12-30 13:54:56 Tala Santacruz [facility] TISSUE EXAM 2019-12-30 13:38:00 Tala Santacruz [facility] I&D,BONE FOOT 2019-12-30 13:11:00 Tala Santacruz [facility] POCT-GLUCOSE METER 2019-12-30 11:39:00 [facility] POCT-GLUCOSE METER 2019-12-30 05:39:00 Pta [facility]ud [facility] SARS-COV2/RT-PCR ([facility] & 2019-12-30 05:11:00 Pat Mohamud [facility] - REF LABS) [facility] METABOLIC 2019-12-30 05:09:00 [place] [facility] CBC W/PLT COUNT & AUTO 2019-12-30 05:09:00 [place] [facility] S [facility] POCT-GLUCOSE METER 2019-12-29 21:09:00 [facility] POCT-GLUCOSE METER 2019-12-29 11:10:[address] [facility] HEMODIALYSIS INPATIENT 2019-12-29 08:12:17 Brandie Khan [facility] POCT-GLUCOSE METER 2019-12-29 06:10:00 [facility] 2019-12-29 05:50:00 [place] [facility] CBC W/PLT COUNT & AUTO 2019-12-29 05:50:00 [place] [facility] S [facility] POCT-GLUCOSE METER 2019-12-28 20:37:[address] [facility] POCT-GLUCOSE METER 2019-12-28 17:38:00 [facility] POCT-GLUCOSE METER 2019-12-28 13:12:[address] [facility] [facility] POCT-GLUCOSE METER 2019-12-28 05:43:[address] [facility] COMPREHENSIVE METABOLIC 2019-12-28 04:41:00 Lily Echavarria [facility] CBC W/PLT COUNT & AUTO 2019-12-28 04:41:00 [place] [facility] S [facility] ABD AO & LOWER EXT 2019-12-28 02:30:00 Sakina Tamayo [facility] - ANGIOS/ POSS PPI [facility] POCT-GLUCOSE METER 2019-12-27 20:32:00 Pat oMhamud [facility] MR LOWER EXTREMITY 2019-12-27 16:30:00 JerichoLily [facility] - WITHOUT IV CONTRAST [facility] POCT-GLUCOSE METER 2019-12-27 14:06:00 [facility] WOUND CULTURE + GRAM 2019-12-27 12:02:00 Annia Delgado [facility] STAIN [facility] POCT-GLUCOSE METER 2019-12-27 06:44:00 Pat Mohamud [facility] POCT-GLUCOSE METER 2019-12-27 05:49:00 Pat Mohamud [facility] COMPREHENSIVE METABOLIC 2019-12-27 05:05:00 Jericho Lily [facility] CBC W/PLT COUNT & AUTO 2019-12-27 05:05:00 JerichoLily [facility] HEMODIALYSIS INPATIENT 2019-12-27 00:31:18 Brandie Khan [facility] POCT-GLUCOSE METER 2019-12-26 20:51:00 Pat Mohamud [facility] TRANSFUSION SERVICE 2019-12-26 18:02:44 Rocco Sepulveda [facility] REPORT - SCAN Scanning [facility] POCT-GLUCOSE METER 2019-12-26 16:42:00 [facility]/CTA AAA AND RUNOFF 2019-12-26 15:27:00 Sakina Tamayo [facility] POCT-GLUCOSE METER 2019-12-26 11:59:00 Pat Mohamud [facility] POCT-GLUCOSE METER 2019-12-26 06:09:00 [facility] 2019-12-26 04:36:00 [place] [facility] CBC W/PLT COUNT & AUTO 2019-12-26 04:36:00 [place] [facility] PREPARE LEUKO-REDUCED RBC 2019-12-25 23:54:00 Brandie Khan [facility] POCT-GLUCOSE METER 2019-12-25 20:51:[address] [facility] TRANSFUSION SERVICE 2019-12-25 18:04:44 Rocco Sepulveda [facility] REPORT - SCAN Scanning [facility] POCT-GLUCOSE METER 2019-12-25 17:01:[address] [facility] POCT-GLUCOSE METER 2019-12-25 11:25:00 [facility]ud [facility] 2019-12-25 05:59:00 JerichoLily [facility] CBC W/PLT COUNT & AUTO 2019-12-25 05:59:00 [place] [facility] POCT-GLUCOSE METER 2019-12-25 05:58:[address] [facility] TRANSFUSE LEUKO-REDUCED 2019-12-24 19:06:17 Brandie Khan [facility] RED BLOOD CELLS [facility] POCT-GLUCOSE METER 2019-12-24 16:15:00 [facility] ABORH, MANUAL 2019-12-24 08:25:[address] [facility] POCT-GLUCOSE METER 2019-12-24 06:11:[address] [facility] TYPE AND SCREEN, 2019-12-24 06:08:00 Brandie Khan [facility] es - AUTOMATED [facility] METABOLIC 2019-12-24 05:51:00 [place] [facility] CBC W/PLT COUNT & AUTO 2019-12-24 05:51:00 Lily Echavarria [facility] POCT-GLUCOSE METER 2019-12-23 21:23:00 Pat Mohamud [facility] POCT-GLUCOSE METER 2019-12-23 16:42:00 Pat Mohamud [facility] MR LOWER EXTREMITY JOINT 2019-12-23 15:34:00 Tala Santacruz hy [facility] - ONLY WITHOUT IV CONTRAST Medical [facility] LEFT MR BRAIN WITHOUT IV 2019-12-23 15:34:00 Lily Echavarria [facility] St L uk - CONTRAST [facility] POCT-GLUCOSE METER 2019-12-23 11:16:00 Pat Mohamud [facility] ARTERIAL DOPPLER LEGS 2019-12-23 09:38:00 Tala Santacruz Thy [facility] BILATERAL [facility] Center AMMONIA 2019-12-23 04:05:00 Mariela Carrasco [facility] COMPREHENSIVE METABOLIC 2019-12-23 04:00:00 [place] [facility] CBC W/PLT COUNT & AUTO 2019-12-23 04:00:00 [place] [facility] SARS-COV2/RT-PCR ([facility] & 2019-12-23 03:59:00 Pat Mohamud [facility] - REF LABS) [facility] POCT-GLUCOSE METER 2019-12-22 20:34:00 Pat Mohamud [facility] POCT-GLUCOSE METER 2019-12-22 16:43:00 Pat Mohamud [facility] POCT-GLUCOSE METER 2019-12-22 11:31:00 Pat Mohamud [facility] POCT-GLUCOSE METER 2019-12-22 06:30:00 Pat Mohamud [facility] COMPREHENSIVE METABOLIC 2019-12-22 05:14:00 [place] [facility] CBC W/PLT COUNT & AUTO 2019-12-22 05:14:00 [place] [facility] S [facility] POCT-GLUCOSE METER 2019-12-21 20:26:00 Cade [facility] POCT-GLUCOSE METER 2019-12-21 17:22:00 Cade [facility] POCT-GLUCOSE METER 2019-12-21 12:35:00 Cade [facility] POCT-GLUCOSE METER 2019-12-21 07:20:00 Cade [facility] POCT-GLUCOSE METER 2019-12-21 05:52:00 Cade [facility] C-REACTIVE PROTEIN 2019-12-21 04:39:00 Annia Delgado [facility] COMPREHENSIVE METABOLIC 2019-12-21 04:39:00 [place] [facility] CBC W/PLT COUNT & AUTO 2019-12-21 04:39:00 [facility] US ABDOMEN COMPLETE 2019-12-20 21:17:00 Sakina Chen [facility] POCT-GLUCOSE METER 2019-12-20 20:23:00 Cade [facility] POCT-GLUCOSE METER 2019-12-20 17:31:[address] [facility] [address] BRAIN WITHOUT IV 2019-12-20 16:04:00 [facility] 2019-12-20 14:41:00 [place] [facility] BLOOD GAS, ARTERIAL 2019-12-20 14:28:00 [place] [facility] XR FOOT 2 VIEWS RIGHT 2019-12-20 11:55:00 Annia Delgado [facility] POCT-GLUCOSE METER 2019-12-20 11:28:00 Cade [facility] POCT-GLUCOSE METER 2019-12-20 06:20:00 Cade [facility] OCCULT BLOOD, STOOL 2019-12-20 06:19:00 April[facility] 2019-12-20 05:06:00 [facility] Sakina Carrillo [facility] FIBRINOGEN 2019-12-20 05:06:00 [facility] D-DIMER 2019-12-20 05:06:00 [facility] IRON, TIBC, % SAT. 2019-12-20 05:06:00 [facility] Sakinara Carrillo [facility] (WITHOUT FERRITIN) [facility] VITAMIN B12 AND FOLATE 2019-12-20 05:06:00 [facility] RETICULOCYTE COUNT 2019-12-20 05:06:00 [facility] HAPTOGLOBIN 2019-12-20 05:06:00 [facility] TSH/FREE T4 IF INDICATED 2019-12-20 05:06:00 [facility] Sakina Iqba [facility] FERRITIN 2019-12-20 05:06:00 [facility] ANTI-NUCLEAR ANTIBODY 2019-12-20 05:06:00 AprilSakina [facility] (ROGER) [facility] KAPPA / LAMBDA LIGHT 2019-12-20 05:06:00 Sakina Chen [facility] PROTEIN ELECTROPHORESIS, 2019-12-20 05:06:00 AprilSakinaba l [facility] PERIPHERAL BLOOD SMEAR - 2019-12-20 05:06:00 April Sakina Iqba l [facility] PATHOLOGIST REVIEW [facility] r COMPREHENSIVE METABOLIC 2019-12-20 05:06:00 Marcial Chapa [facility] T4, FREE 2019-12-20 05:06:00 [facility] ROGER TITER AND PATTERN 2019-12-20 05:06:00 AprilSakina [facility] CBC W/PLT COUNT & AUTO 2019-12-20 05:06:00 Marcial Chapa [facility] POCT-GLUCOSE METER 2019-12-19 20:35:00 [facility] POCT-GLUCOSE METER 2019-12-19 16:06:00 Evens [facility]udruel [facility] HEMODIALYSIS INPATIENT 2019-12-19 16:02:09 Sharri Fernando [facility] BASIC METABOLIC PANEL (7) 2019-12-19 05:35:00 Marcial Chapa [facility] LACTATE DEHYDROGENASE 2019-12-19 05:35:00 Sakina Chen [facility] ([facility]) [facility] CBC W/PLT COUNT & AUTO 2019-12-19 05:35:00 Marcial Chapara [facility] POCT-GLUCOSE METER 2019-12-19 05:24:[address] [facility] POCT-GLUCOSE METER 2019-12-18 21:35:[address] [facility] POCT-GLUCOSE METER 2019-12-18 16:05:[address] [facility] POCT-GLUCOSE METER 2019-12-18 07:45:00 [facility] POCT-GLUCOSE METER 2019-12-18 06:14:[address] [facility] POCT-GLUCOSE METER 2019-12-17 21:44:[address] POCT-GLUCOSE METER 2019-12-17 17:52:00 [facility]ade [facility] POCT-GLUCOSE METER 2019-12-17 12:22:[address] [facility] HEMODIALYSIS INPATIENT 2019-12-17 10:33:08 Brandie Khan [facility] POCT-GLUCOSE METER 2019-12-17 06:18:00 [facility] W/PLT COUNT & AUTO 2019-12-17 04:14:00 Marcial Chapa [facility] COMPREHENSIVE METABOLIC 2019-12-17 04:13:00 Marcial Chapa [facility] PANEL [facility] POCT-GLUCOSE METER 2019-12-16 20:55:00 Pat Mohamud [facility] POCT-GLUCOSE METER 2019-12-16 18:24:00 [facility] HEPATITIS B SURFACE 2019-12-16 16:02:00 [facility] ANTIBODY [facility] HEPATITIS B SURFACE 2019-12-16 16:02:00 [facility] ANTIGEN [facility] HEPATITIS C ANTIBODY 2019-12-16 16:02:00 [facility] HE[facility]IS B CORE 2019-12-16 16:02:00 [facility] es - ANTIBODY, TOTAL [facility] POCT-GLUCOSE METER 2019-12-16 14:47:00 [facility] IR TUNNELED DIALYSIS 2019-12-16 14:26:00 Sharri Fernando [facility] CATHETER [facility] HEMODIALYSIS INPATIENT 2019-12-16 12:37:39 Bill [facility] POCT-GLUCOSE METER 2019-12-16 11:01:00 Pat [facility]ud [facility] XR CHEST 1 VIEW 2019-12-16 05:55:00 Marcial Chapa [facility] PORTABLE/BEDSIDE [facility] POCT-GLUCOSE METER 2019-12-16 05:51:00 [facility] BASIC METABOLIC PANEL (7) 2019-12-16 04:08:00 Marcial Chapa [facility] PROTHROMBIN TIME/INR 2019-12-16 04:08:00 Marcial Chapa [facility] CBC W/PLT COUNT & AUTO 2019-12-16 04:08:00 Marcial Chapa [facility] SARS-COV2/RT-PCR ([facility] & 2019-12-16 01:45:00 Pat Mohamud [facility] Plan of Care Planned Activity Planned Date Details Comments Source Future Scheduled 2020-12-[address] [facility] - Test 00:00:00 examination Medical Center (regime/therapy) [code = 882666723] Future Scheduled 2020-12-[address] [facility] - Test 00:00:00 [facility] colon (procedure) [code = 460213875] Future Scheduled 2020-03-[address] [facility] - Test 00:00:00 (12+) [code = Medical Center DEPRESSION SCREENING (12+)] Future Scheduled 2020 PNEUMOCOCCAL 65+ YRS [facility] - Test 00:00:00 (1 of 1 - Medical Center [id number] PCV13) [code = PNEUMOCOCCAL 65+ YRS (1 of 1 - [id number] [id number])] Future Scheduled 2019-11-30 INFLUENZA VACCINE (#1) [facility] - Test 00:00:00 [code = INFLUENZA Medical nter VACCINE (#1)] Future Scheduled 2017-08-[address] Janna kes - Test 00:00:00 measurement [facility] Center (procedure) [code = 54524272] Future Scheduled [address] [facility] (procedure) [code = [facility] 17145017] Future Scheduled [address] [facility] 00:[facility]:00 malignant neoplasm of [facility] cervix (procedure) [code = 429469099] Future Scheduled [address] DIABETIC EYE EXAM [facility] - Test 00:00:00 [code = [facility] EXAM] Future Scheduled 1965 Urine screening for [facility] Test 00:00:00 protein (procedure) [facility] [code = 282144195] Future Scheduled [address] [facility] Test 00:00:00 malignant neoplasm of [facility] breast (procedure) [code = 827536712] Encounters Start End Encounter Admission Attending Care Care Encounter Source Date/Time Date/Time Type Type Clinicians Facility Department ID 2020-03-28 2020-03-29 Emergency Chato Fine [facility] [id number] 15:50:00 20:31:00 Maureen Terrazas [id number] [place] [id number] [place] [id number] 2018-11-17 2018-11-17 [facility] [id number] [address] 11:30[facility] 11:30:[facility] 2018-10-06 2018-10-06 [facility] [id number] 16:14[facility]00 16:14:00 [facility] 2018-09-28 2018-09-28 [facility] [id number] 10:30:00 10:30:00 [facility] Results Test Description Test Time Test Comments Results Result Comments Source ANAEROBIC CULTURE 2020-01-04 10:26:00 Test Item Value Reference Range Interpretation Comme nts CULTURE (SERVANDOAKER) (test code = 1095) No anaerobes isolated Tissue [id number] 10:21:00 Test Item Value Reference Range Interpretation Comments Case Report (test code Surgical Pathology = 104) Report Case: [id number] Authorizing Provider: Tala Santacruz DPM Collected: 12/30/2019 01:38 PM Ordering Location: [address] Med/Surg Received: 12/31/2019 06:52 AM Pathologist: Jovita Griffith MD Specimens: A) - Soft Tissue, Other, left 5th proximal phalanx B) - Metatarsal, Left, left 5th metatarsal DIAGNOSIS (test code = f9cyfUGjPAZfc3zpMRGclE 3220) FuZzEwMzNcZnRuYmpcdWMx GWktivYrRQhvr1RvA2EqYf AwMFxhbnNpXGRlZmxhbmcx TZUxRPF7ogQbWFIfAAmfJO ZqJIlsWo0fuQHulUviArBd GEYpq9yommVAvbvviNf3k3 ahLLHjSlX4kLSdZAdwC6uu xrTbvOZjTISdMUb1sD36GE WrhG0nfUQjDCknmlIaFwV6 VGpsOIDaZmQ0OJLfqBKiNV VnP0xiBFJiASxyDVHqUIkm uRLoDYM4eAnjc0B3fGDfpE WszBpdZpBiIgCoTWJXm6Lf TIc8kHezK6TpMXMaDdZ1iB QgUGFyYWdyYXBoIEZvbnQ7 yO02CBixwlV3eFCjr1Zih0 6ln933tR3pgJFyOVF7ZTBa EREtvCHzQRYkMWC0TNSjyD AyR2x3BxEddHUiI9N3FgQr tTDyM0E1VzOgxUVgK3V0Sa WjsISrJAJqxACoIl4cwSAr nWSeyr7yiy09YCI7e7KplC trSJE7LTP8QiXhHt6duWLn OHDgIE7iObRlaZPhJBGmvq 24xVozZXfpsfHjmB0qMyKg MFTedYAsIWJoTF2zlSNaJV YaoJ2xaoiwMCKeHeBolixy MWWurLzxgdPhEr1zwUkzVE Z3KPmvE6wkxL5iWeB7QBee X7nfkQ1rEDx9KIrakZE8SN KphJ8tAT0iekkwk2omDhRu FA4mzfhxe4uvRiFcNH8sva b4z9gtYxNuBU0cxfbcu0xs NzIwXGhlYWRlcnkwXGZvb3 MysmyrZDPlv1MmW7JciPrw M19nbSoeG02lOOUsvUlttF 3hzJqlgJ6eApTqQuWyISat bFxwbGFpblxmMVxmczIwXG mtojdsDXLoIOdjJ9hyDiGe MBBiuXsgKEpqs5GoWJGwFX XcYsKyNT0xFc7GKHbfDUUC AEYWKOTJEZFBBs5ZYX2EZI SVZAGKNH6PMMLTGD7QF1i2 RLKdphYaNBZtAKKSVU9yW5 cBLEVFRgZWRgzYTS2DMGJG UlRJTEFHRSBXSVRIIFNVUl ISTY1KBH2IYXFQZGEFEWJL RCBDSFJPTklDIElORkxBTU 1BVElPTlxwYXJccGFyIEIu IEJPTkUsIExFRlQgRklGVE ggTUVUQVRBUlNBTCwgQklP UFNZOlxwYXIgICAgLSBBQ1 MRKUUUG7ZNY96VEQwRPJuH IFxwYXIgICAgLSBTRVBBUk PTLERAEjUOAAAXBJTrK3Xo YjsIIv1IF18AOIDAXDPBOZ ECY6BHCMDVDNNPVQRFV0AC P4OiJJ1SL4ZGH1vTUKWBHV BHUkFOVUxBVElPTiBUSVNT KBEuEc1BCIVIJS9BQZEfqk 66WNP0ThHgo6A7CHG0AKZr YNGqa5ajOVTruXXwUsTnRe NcZnRuYmpcdWMxXGRlZmYw w8yic916iCNse3usPYAjJc G1uGMhNXZnpBHpD276GYHl YYkdb0mlo0WtPQNsoTVfd8 G6JSVXghclzPx9kMwwD47i i2O0TblxT5fnDYCdYEQiH7 UzSP3sPHAkMjw7JAW9EOY4 JQToHUKhI3ZwTX0sNVXwrC AeGHj7g8nwwMsoFIAxAYQ3 y5ceKQdzvlSxFC0vss4wtB o6j5bzqlRaQBWuYKTgmTTN VFZtW6GbyNjgMu5jvVn2kL slLhnlYAB8Rbc6MW9isd83 fqj2mOknXLSwplgtZlC6PM xaNNBremjlUXh3BDfrOPJz xSF6PVBtvZJvO4KlCZJwTF 5pbmo4YUJ6JKtaXFDmCcN7 NDBcaGVhZGVyeTcyMFxmb2 86KLR1TrRuMD2iG5Zqv3N3 vA0vpUBeYAHdlPRzBtEfSW Jjar6chXWcSNnvm3NrVQG9 jyV8bTVkiFRaTVHkOjZ8SO zyBK7daf69WJEyJPL1om4g bGNccGdicmRyaGVhZFxwZ2 GrGIKjb094HYBzN2EfKVVu b1S9iaBeYzRaYGWnlAM8vc K8CZEfIW2pkkxmu0diHWwx ZIznYNGvbzY3rbI6OKTryQ SvR5WejI7bOYXlDO3yrfjk r9cmBFV6IVlcACKkELT3Rs PaXQWfv9Yphwd5MwPgg3Gz mLFvEQfqO24pr813WXHsbu KhG1yusLBckrufzCCqfrzw DVzkooY1CJGvQXruowzqEJ WtRMpbX2qcDzZsQHBpeEvk OHyjv1QmZPUoHQQaKpAlaY LzEDRxWje3VATajPEiKCCp IlPgW6wfckheUlKIYMRzi2 zrM2nxoMYKpNZbU9CjHZvr jlXfEDtoKSlwNZG6ASV3Bd 96LaT7UHYuut99 CPT Code(s) (test code f5bloSZaRTFfrNRmEhUoKE = 3357) IfHIJbq6tnFDIxuFVcCjYe MzNcZnRuYmpcdWMxXGRlZm Nbe6eov012cCQea2qxUOGj KdS3kZMxTAHsnVLbX571y5 kmj2deviGrkCW7VTZcEGB3 THizpvAjtfW4RIsemGHjTs V6CNwdyeEbJFhbqyBkanBi Ddt7TPTnW229XWT6tJkrj3 tpDIC8QNUgZQWkPxIpHz6e vRHwL320YNRhNXRAVFAmnC h5HRMgziVghmJbxWBCk484 W990y9hvQWQgfcOdqZwHfs ftd6lzK249QWFzpPOxesIj SeWrTIIklTDnnQE5MQViUA 1vauiiInRkAJ8oopkoYaAy XF8hfjl7MtRnZP7hizyuKa RiBMguKQYpxixcOMBof0Xm uuvqSH0gK4Qqm2P8yZ7ehD BrUEYddIXvQnSfATPlgv7g gRFuEDyls4AiSTE4qtT3qF KhjCWsXEWyKK79Avgbi7Py OdggVHX8BPXwkrKii2Yex9 usRgNrbaMuI5meU7KnAQQc RZOwYCJwYsWwhwThc8Rdx3 SqrMUtgKr2i0njFAThSHQv aBkfr6jpMBW2JPGjU3Y2kJ Uff4drXFjyDFYjbWH5ibfb GYdeNGZjjoC4kyjuHTyaLA BahHG7einaUGwgMTHmNgS0 nshrZPcdIQGeRJZ0SXnnz8 48RGI8NMlbWdwjANztXRSb bmNvbnRccGduZGVjXHBsYW luXHBsYWluXGYwXGZzMjRc zQlfhJiceQ4qMqQaTvFqKO eaMI8lRAVvS9fdpUTcZLXx SAVaW7hkFzZglL9taVnpTW cejyLcVY3DZ8R6EFHqblP4 CWZqUzC7BadyRSArPUiuLB EgeDJccGFyfQ== CLINICAL HISTORY (test j1jxgPFsRJXwpSKhKqGuFF code = 9531) EfDKDfg9ygBJObsSLpYqIu MzNcZnRuYmpcdWMxXGRlZm Mls4dmo854iYDme4mvCZOt MkS3rPKeXGAmpVIbY931y1 jwj0ropmPdaVX8EWSuWTV6 YEsmtgIwkcF3POtczQXgPf P3YWbdcrAnURtjzyFywpUx Gpp4HSFoW826GTY3tIynl8 mdTIO8PLMjJSEmRcVnTx6w cGJnO140WCQqJKORDMZksL g7YJNubyRnjfLnzPPXn942 B985h8tnUPLrxaOduZxUxn hqz9tcZ351UVCncSOnyoMi KiLiTIEksPNygGI6JOJkPZ 1jlfpmFjBgSG6sumddQaLo WF5yroz5InHoJJ2gngtgZq GhWVirDEGgyfliNMCbu0Ds fttoDW2dW5Ben2D4iK1ihY KdKTDheOZhLwYbBBBlca7j kAQpTVejm4ZpUOR1jbY2dY YgtTHbKYEsCV00Jwovh0Nt MdihANH6JAXcphUsz7Ygy2 xvUvMgxtXpV4nxT2HeDOFe ZIYlBIPpYaUlmtZbj2Mhn9 AblHZawKm9k9jbEFCgTASn oAkrs8goHDI6DPIkN4K0yS Dew0crNWprGAZdwES0vkac TLwhMDBjfeY4boixGYjkQZ CisTB0xpwlRGhsUDHxRtG4 qbpiWHuhNDIaQJE0AAift8 69EVS6LLvmSygiKSmdMUEb bmNvbnRccGduZGVjXHBsYW luXHBsYWluXGYwXGZzMjRc nZspsVqnxK7rKdUwRjZfFQ ylEB3vQBLjF2nzfURdDHAb OHLiZ3pcXxAgeY5qvAhePG jgbgBgSS0kuHZfqRyzsWj4 nZOeo8IaaPEiwLE1vDrryF C5FWUglqOzqJkjhOoqZAUg y0BoApaeNOLenaHcCWJrUA RccGFyfQ== SPECIMEN SOURCE (test m1zyqRQhUFHypNMkTxAwTP code = 3377) DpIDFqv4roCKTfkFHbWxEq MzNcZnRuYmpcdWMxXGRlZm Cwr5xiw323dKIft0vlGBZq YlI0kWHjBHLrbFShZ126p9 iok3zsckBujLC8KSSkVWH6 XMrugaPdqaD9WBtgbNYiOj X5PHurndByPVvhupBxrgDx Fju0ZDIqH364YTQ9zWlep7 usTDW4ERFfFIIrFhEgFv8n rFLmH857PVMyVLWCXIOtsA r7CZZnrjItssLtkVCCq789 S971r4pkZRDmiqXyjUqOam lji0guY250XTMylSYtrlOt UqJgFSYoaUOlaSY1WTYbRQ 5bsdxeExYdXX9sfakySoMm HU1ufbo5XyUgTS6cqfdcFh PzYSudIUWgxjbxTXVxq2Ct nfakRQ4bR0Xog7E9gG1edE VoVQFbqXQmKhDhAQWojw3w dISxTKnwj8XoDLT5tzY5sI LohNDrHSTrSH58Xyzib1Rf PllrSOV5WYKtjbVux0Kpe4 phYmWiloYvS8qyM3JlNZNx HXTuETKbMsEcbkNur6Ocs6 ZrkJDfaUv1n7gjEKNfVVRk nNjxq8rqBQF7FRMfL4G3tZ Ixv0knJJdrSINpiXA9rkbz JEkjCBKiiaM4pwwpJXpyGG RniIU4jnkuBQdmUPQuQqF4 ldqyPGmaGVHeUUY5GJpvj7 63HGQ8YJijBbckLQejNZNi bmNvbnRccGduZGVjXHBsYW luXHBsYWluXGYwXGZzMjRc lPdquMkvcQ5gAhNnBcElVA rpQB0uLVHbI0uhuQFhJKHo MRZuC4zaTnZixT7jnJczVL xmczIwIEEuIExlZnQgNXRo IJLaq9vypPWhVXOdUOmrdo faLPHqSTrbLlYqNRJaCS2w yQZ9KYJkJThgXASkzq4= GROSS DESCRIPTION (test l7iyjBWnVBSypIIdYcRvSY code = 3366) CrDDBjp7qiLFGmyGWqVoJg MzNcZnRuYmpcdWMxXGRlZm Axd3zgh086tILkn9lnNZDy SsG4uZJyCXLdaAKjJ966SU FjCEybz6dqp1UmXCQxmWXm p0I3PMGQcllhsAy3uTnsM9 8on4P1GgyfN7ytZCYuZYKm U6DdNM6zFYVcXit5VPI0AB X8AQUrHLSyG1KrIM6kUBGo wGSmBRx1p1gqvGonAUAkGU S2y3wkEUawzxGaRQ3dnr2j zCb4a0sjftPxURWzMAGpxI VTIGRyF6YfgMdkBp4reSr5 lFdjAbulXTL9Lvb5QU7rne 70kjr0aJigSHJyhiiiJzZ7 ICggIOQxefwxLLn6GZmnUH JnbDcyMFxtYXJncjcyMFxt YXJndDcyMFxtYXJnYjcyMF noOJIyPXA2OGmsu964TEO8 ZLamy7bue9ienKZcKay6BC SzVkHyBnbqTHcvl7Oys6mm LFDkdj3rCAH5tUDxpAyhh4 C2yRDsNAWstLXhziNwFJKm SrT3WVduFD9ccg96RUIlVH J3uf1xvLPdeKnohmCeeEYu YBmgR1UcJVEzj297LSSxL5 DkVZJib0Z0wvFyMvIyYUEu hNE1wsL5BDVnITf1kMWydk S4byVfxRVeG0ximN74UxBb gJGxC0DisU72QrJmfQUwV8 GpiX00OmGazBGmE2FtrO71 ErHmoNHsKCFgdGWfEi7gjV VmrXZzv2JqtSKxTAhiL52o w698WNVqpbDpQ1chcGKqqg ojpNLcmdmxRTabkaH8ROGx XHBsYWluXGYwXGZzMjBcbG FuZzEwMzNcaGljaFxmMFxk TxRiBXPqBXahX3bfEaLmUo IzJOMZpIKboW7gmmQKTXwi XRChR6JgxyHzROubBKEeeG U3nYXcTJtiNrGeTQYzv6a4 nFJ8oVLbvKD9uTAqmRaiQM 2iqGSsWN4pQO0hRUidKMhq ymHmb5OjKA98aBCtzvXaww QgZGVzaWduYXRlZCBhcyAi m66ajZO2mSYozCAtBH45rT WhFpuqD56ij3hxdESep2Ro p9qatWYgjSHwdI11PKTmoo PqDaPqJ30hwyOtTS2jTJJ7 cmluZyAwLjcgeCAwLjMgeC WxPfBfC73dOIZlRHFdgVUy yD1hblJojxQuyKEcpOW9EY MgYI63vZZyrFcxuN13jaCP LCNacnKzcH40tkHsMPPcmG Ndg2h8rVgymw5eiUOqUNEa ijHBmWAgkJ2mdeWDDLolIS FpM5WgaoXbGQkaWFDwbTN8 vJMtRRzsQcIzGVXwt8u6mB M8wTKojCJ3rKWkaCbnQJ2z qRUzDA6iMV5lBFqoACtzpx Eif2PgFW35yVYvsyZxtyOd ZGVzaWduYXRlZCBhcyAibW C7JFSbljBytYQjWND7Cixp M82pq4gknTBco0GfEm69zd KdPDWhXbVyd99ahBqgy3Pw VHOxRLTxz52sMCAiTZzfWL 27qhQpXOYtsSZkincmKl4f VVpmGY19JEkvUW52FTAwWU dyLRBrV1YgC5Z5JT5hjFre IHNwZWNpbWVuIGlzIGVudG sgDXz2WAeqeBTmpkpnRUim czIwXGxhbmcxMDMzXGhpY2 jmUgSnUQOtnSrnKSjdm0Nw WXSiKBGjMsDsIeOeMJ4lGU axhE6iGMVwJEcpd00qvXFx b56fERTbSPmkWZAnZSQlDf BcbGFuZzEwMzNcaGljaFxm UFijGiEsROJbQJloE9pdQu BcZnMyMCAgTUcvZXdccGFy fQ== MICROSCOPIC DESCRIPTION h1ipbGFiVBYvnDKpXhMvMK (test code = 3371) RuJIPsd8mmBXXcpCKkZeMv MzNcZnRuYmpcdWMxXGRlZm Cft9eff465eBGmd5zzFJKo IuZ3dRKbAAZagKMiJ628c6 djk1lxxhRomMB8MMMuZAU2 ANycueAecyQ7UAfrmQDqAd P8EXdszsRwETwhmsMgwfXk Ckp3OBAxT408KWH4rUxgy7 ifZIH2ZJVeTNEsLmNiTa3o jSHlU962HUAcJVBMKUHgzU i3GBGgnvIgwdIxpEXYi093 Y825r0joFUPuqaVutZgSem qqs8wdH913MKFtbUMafgQz BaPoKKRfsEPlsCV1YPUzRE 1ebswkTmNbRQ1yfgnaCoVl QB0chfj9PjIxFO0ikyacNc KoAKyrNWVtrborLGRzk4Sc rtdjXA8zZ2Mos7P6wU9vbX GgUHXncSTqQuGdITNeko5c pDMePHtxy8PlRAJ3icD8fA JroIMdUZEqHQ15Uuaqq4Jj WknnKCM3EEOyxtRew1Dkd9 anBcBkmwTeI0pfX3DxPKRy MITsEXTvOaOgsaDwf6Gta7 UcgBHkaHj6g5quFWQtYKZe eVmbd5ilJDB5QCCsX8O8oS Rnf5mrIMfjVQXqnBX2czoc IAejJUNyutT2qdscVTstIO AqnJB8rjlpZPwkSTCrXuJ0 yevuZXdhBCCeGBV7CMkps3 97NEQ5CWhzCjdtSJftHNTb bmNvbnRccGduZGVjXHBsYW luXHBsYWluXGYwXGZzMjRc iElosQigjW9eWdUrFkNiOI kfGZ8mIEXdN1qiiWRhVAGp GHAcO8adPdKthI0wuAtaPC kksuIyFGNhTn5qFZYrKl2h bWVkLlxwYXJ9 Gross assessment was [facility] performed at ([facility], Department = 2777) of Pathology, [address] [place] [address], Technical component was [facility] performed at ([facility], = 2778) Department of Pathology, [address] [place] [address], Professional component [facility] was performed at ([facility], Department code = 2779) of Pathology, [address] [place] [address], [facility] [id number] 10:21:00Surgical Pathology Report Case: [id number] Authorizing Provider: Tala Santacruz DPM Collected: 12/30/2019 01:38 PM Ordering Location: [address] Med/Surg Received: 12/31/2019 06:52 AM Pathologist: [...] TISSUE FORMATION Signing Pathologist Direct Phone Line: [phone] signed by Jovita Griffith MD on 01/04/2020 at 10:21 AMMG/[id number] i4Nhcxeyfcklgwk of left 5th metatarsal, ulcer of bilateral [...] entirely B1 and into decal solution. MG/Veronica-B. Performed.[facility], Department of Pathology, [address] [place] [address], [facility], Department of Pathology, [address] [place] [address], [facility], Department of Pathology, [address] [place] [address], CCLONCRDT [id number] 10:47:00 Test Item Value Reference Interpretation Comments [...] negative Staphylococcus SURGICALLY OBTAINED CULTURE + GRAM [id number] 08:31:00 Test Item Value Reference Range Interpretation Comments CULTURE (BEAKER) (test code No growth = 1095) GRAM STAIN RESULT (BEAKER) <1+ WBCs (test code = 1123) GRAM STAIN RESULT (BEAKER) No organisms seen (test code = 74462) SURGICALLY OBTAINED CULTURE + GRAM [id number] 08:19:00 Test Item Value Reference Interpretation Comments Range CULTURE (BEAKER) STENOTROPHOMONAS A 2+ Sten otrophomonas (test code = 1095) MALTOPHILIA maltophil ia Levofloxacin (test S code = 22) Trimethoprim + S Sulfamethoxazole (test code = 47) GRAM STAIN RESULT <1+ WBCs (BEAKER) (test code = 1123) GRAM STAIN RESULT No organisms seen (BEAKER) (test code = 982365) POC-Glucose [id number] 06:47:00 Test Item Value Reference Range Interpretation Comments POC-Glucose Meter (test 102 mg/dL 70-110 : TE STED AT [facility] code = 1538) [address] [place] [address]: Bucket Chucker/Techni artemio ID = [id number] for Anne Salgado Lab Interpretation (test Normal code = 74759-4) [facility] [id number] 06:47:00 Test Item Value Reference Range Interpretation Comments POC-GLUCOSE METER 102 mg/dL 70-110 : TESTED A T SLSL 1317 (BEAKER) (test code [address], = 1538) [facility] 77 478: Bucket Chucker/Techni artemio ID = [id number] for Anne Busby Comprehensive metabolic [id number] 06:34:00 Test Item Value Reference Range Interpretation Comments Protein, Total (test 6.1 6.0- 8.5 gm/dL code = 2885-2) Albumin (test code = 2.3 g/dL 3.5-5 L 37915-9) Alkaline Phosphatase 81 U/L 30-115 (test code = 6768-6) Total Bilirubin (test 0.4 mg/dL 0.1-1.2 code = 1975-2) Sodium (test code = 137 meq/L 847-672 4205-2) Potassium (test code = 3.7 meq/L 3.6-5.5 2823-3) Chloride (test code = 100 meq/L 98-106 2075-0) CO2 (test code = 28 meq/L 20-29 2028-9) BUN (test code = 14 mg/dL 10-26 3094-0) Creatinine (test code 2.31 mg/dL 0.5-1.2 H = 2160-0) Glucose (test code = 100 mg/dL 70-110 2345-7) Calcium (test code = 7.5 mg/dL 8.5-10.5 L 68630-3) AST (test code = 15 U/L 5-40 1920-8) ALT (test code = 6 U/L 5-50 1742-6) EGFR (test code = 21 mL/min/1.73 [place] [address]-4) NOT ACCURATE CREATININE CLEARANCE IN PREDICTING GLOMERULAR FILTRATION RATE . ESTIMATED GFR I S NOT APPLICABLE FOR DIALYSIS PATIENTS. ZIA (test code = ZIA) Bucket Chucker ID - ADMIN Lab Interpretation Abnormal (test code = 86544-9) [facility] METABOLIC [id number] 06:34:00 Test Item Value Reference Range Interpretation [...] S NOT APPLICABLE FOR DIALYSIS PATIEN TS. Bucket Chucker ID - ADMINCBC with platelet count + automated [id number] 06:06:00 Test Item Value Reference Range Interpretation [...] K/CU MM L MPV (test code = 17297-3) 10.5 fL 6-11.5 nRBC (test code = [...] 2801) Lab Interpretation (test code = Abnormal 66609-4) [facility] W/PLT COUNT & AUTO [id number] 06:06:00 Test Item Value Reference Range Interpretation [...] PERCENT (BEAKER) (test code = 2801) POCT-GLUCOSE [id number] 21:02:00 Test Item Value Reference Range Interpretation Comments POC-GLUCOSE METER 167 mg/dL 70-110 H : TESTED A T SLSL 1317 (BEAKER) (test code [facility] [address], = 1538) [place] 089248: Bucket Chucker/Techni artemio ID = [id number] for Ashley austin Anne POCT-GLUCOSE [id number] 18:12:00 Test Item Value Reference Range Interpretation Comments POC-GLUCOSE METER 121 mg/dL 70-110 H : TESTED A T [facility] 1317 (BEAKER) (test code [facility] [address], = 1538) [place] 089248: Bucket Chucker/Techni artemio ID = [id number] for Cortney Cohen POCT-GLUCOSE [id number] 11:54:00 Test Item Value Reference Range Interpretation Comments POC-GLUCOSE METER 117 mg/dL 70-110 H : TESTED A T [facility] 1317 (BEAKER) (test code [facility] [address], = 1538) [facility] 77 478: Bucket Chucker/Techni artemio ID = [id number] for Cortney Cohen COMPREHENSIVE METABOLIC [id number] 06:47:00 Test Item Value Reference Range Interpretation [...] S NOT APPLICABLE FOR DIALYSIS PATIEN TS. Bucket Chucker ID - [id number] 06:42:00 Test Item Value Reference Range Interpretation Comments Magnesium (test code = 1.6 mg/dL 1.5-3 25960-8) ZIA (test code = ZIA) Bucket Chucker ID - ADMIN Lab Interpretation (test Normal code = 02299-3) [facility]-GLUCOSE [id number] 06:42:00 Test Item Value Reference Range Interpretation Comments POC-GLUCOSE METER 101 mg/dL 70-110 : TESTED A T [facility] (BEAKER) (test code [address], = 1538) [facility] [place] [address]: Bucket Chucker/Techni artemio ID = [id number] for Anne Busby [id number] 06:42:00 Test Item Value Reference Range Interpretation Comments MAGNESIUM (BEAKER) (test code = 1.6 mg/dL 1.5-3.0 627) Bucket Chucker ID - ADMINCBC W/PLT COUNT & AUTO [id number] 06:37:00 Test Item Value Reference Range Interpretation [...] PERCENT (BEAKER) (test code = 2801) POCT-GLUCOSE [id number] 20:24:00 Test Item Value Reference Range Interpretation Comments POC-GLUCOSE METER 155 mg/dL 70-110 H : TESTED A T [facility] 1317 (BEAKER) (test code [facility] NT [facility], = 1538) [facility] 77 [address]: Bucket Chucker/Techni artemio ID = [id number] for Anne Busby POCT-GLUCOSE [id number] 16:39:00 Test Item Value Reference Range Interpretation Comments POC-GLUCOSE METER 164 mg/dL 70-110 H : Notified RN/MD: TESTED (BEAKER) (test code AT [facility] [address] = 1538) [facility] [address]: Bucket Chucker/Techni artemio ID = [id number] for Alondra Kelley SARS-CoV2/RT-PCR (Asymptomatic ONLY)2019-12-30 15:57:00 Test Item Value Reference Range Interpretation Comments SARS-COV2/RT-PCR Negative Not Detected, (test code = Negative, See 63594-1) external report for linked test SARS-COV-2 [facility] JANET PERFORMING LAB (test code = 50350-3) ZIA (test code = Negative result for [...] of the Act. Fact Sheet for Healthcare Providers:https://www.[employer]/sites/default/f loco/product/documents/F act_Sheet_HC_Providers_L ink_VADZ-XhL-7.pdf Fact Sheet for Healthcare Patients:https://www.[employer]/sites/default/fi les/product/documents/Fa ct_Sheet_Patients_Lyra_S ARS-CoV-2.pdf Performing Laboratory:[facility] [place] [address] [facility])2019-12-30 15:57:00 Test Item Value Reference Range Interpretation Comments SARS-COV2/RT-PCR (test Negative Not Detected, Negative, code = 8338771) See external report for linked test SARS-COV-[address] [facility] JANET (test code = 5350033) Negative result for this test determines that [...] 564(g) of the Act.Fact Sheet for Healthcare Providers:https://www.[employer].Mi[employer]ú/sites/default/files/product/documents/Fact_Shee a_JL_Icvrcgrbk_Plde_ZIFO-KwQ-4.pdfFact Sheet for Healthcare Patients:https://www.[employer].com/sites/default/files/product/ documents/Ccgy_Jbpee_Lflvgiig_Xgyf_KDFO-SyE-8.pdfPerforming Laboratory:[facility], [place] [id number] METER 2019-12-30 11:50:00 Test Item Value Reference Range Interpretation Comments POC-GLUCOSE METER 82 mg/dL 70-110 : Notified RN/MD: TESTED (ROBERT) (test code = AT [facility] [address] [place] [address]) [facility] [address]: Bucket Chucker/Techni artemio ID = [id number] for Alondra Kelley WOUND CULTURE + GRAM [id number] 10:45:00 Test Item Value Reference Interpretation Comments [...] gram negative (BEAKER) (test code rods = 298493) POCT-GLUCOSE [id number] 05:50:00 Test Item Value Reference Range Interpretation Comments POC-GLUCOSE METER 103 mg/dL 70-110 : Notified RN/MD: TESTED (BEAKER) (test code AT [address] = 1538) [facility] [address]: Bucket Chucker/Techni artemio ID = [id number] for Zonia Healy COMPREHENSIVE METABOLIC [id number] 05:44:00 Test Item Value Reference Range Interpretation [...] S NOT APPLICABLE FOR DIALYSIS PATIEN TS. Bucket Chucker ID - ADMINCBC W/PLT COUNT & AUTO [id number] 05:29:00 Test Item Value Reference Range Interpretation [...] PERCENT (BEAKER) (test code = 2801) POCT-GLUCOSE [id number] 21:21:00 Test Item Value Reference Range Interpretation Comments POC-GLUCOSE METER 185 mg/dL 70-110 H : Notified RN/MD: TESTED (BEAKER) (test code AT [address] = 1538) [place] [address]: Bucket Chucker/Techni artemio ID = [id number] for Zonia Healy POCT-GLUCOSE [id number] 11:21:00 Test Item Value Reference Range Interpretation Comments POC-GLUCOSE METER 143 mg/dL 70-110 H : Notified RN/MD: TESTED (BEAKER) (test code AT [address] = 1538) [place] [address]: Bucket Chucker/Techni artemio ID = [id number] for Alondra Kelley COMPREHENSIVE METABOLIC [id number] 06:27:00 Test Item Value Reference Range Interpretation [...] S NOT APPLICABLE FOR DIALYSIS PATIEN TS. Bucket Chucker ID - ADMINPOCT-GLUCOSE [id number] 06:21:00 Test Item Value Reference Range Interpretation Comments POC-GLUCOSE METER 73 mg/dL 70-110 : Notified RN/MD: TESTED (BEAKER) (test code = AT [facility] [address]) [facility] [address]: Bucket Chucker/Techni artemio ID = [id number] for Zonia Healy CBC W/PLT COUNT & AUTO [id number] 06:00:00 Test Item Value Reference Range Interpretation [...] PERCENT (BEAKER) (test code = 2801) POCT-GLUCOSE [id number] 20:48:00 Test Item Value Reference Range Interpretation Comments POC-GLUCOSE METER 84 mg/dL 70-110 : Notified RN/MD: TESTED (BEAKER) (test code = AT [facility] [address]) [facility] [address]: Bucket Chucker/Techni artemio ID = [id number] for Zonia Healy POCT-GLUCOSE [id number] 17:51:00 Test Item Value Reference Range Interpretation Comments POC-GLUCOSE METER 59 mg/dL 70-110 L : [facility]ED A T [facility] (test code = [address] [facility], 1538) [place] [address]: Bucket Chucker/Techni artemio ID = [id number] for Christina r, Berta POCT-GLUCOSE [id number] 13:28:00 Test Item Value Reference Range Interpretation Comments POC-GLUCOSE METER 67 mg/dL 70-110 L : TESTED A T [facility] [address] (BEAKER) (test code = [address], 15[address]) [place] [address]: Bucket Chucker/Techni artemio ID = [id number] for Christina r, Berta POCT-GLUCOSE [id number] 06:04:00 Test Item Value Reference Range Interpretation Comments POC-GLUCOSE METER 94 mg/dL 70-110 : TESTED A T [facility] [address] (BEAKER) (test code = [address], 15[address]) [place] [address]: Bucket Chucker/Techni artemio ID = [id number] for Anahi Sherman COMPREHENSIVE METABOLIC [id number] 05:35:00 Test Item Value Reference Range Interpretation [...] S NOT APPLICABLE FOR DIALYSIS PATIEN TS. Bucket Chucker ID - ADMINCBC W/PLT COUNT & AUTO [id number] 04:56:00 Test Item Value Reference Range Interpretation [...] PERCENT (BEAKER) (test code = 2801) POCT-GLUCOSE [id number] 20:43:00 Test Item Value Reference Range Interpretation Comments POC-GLUCOSE METER 137 mg/dL 70-110 H : TESTED A T [facility] [address] (BEAKER) (test code [address], = 1538) [facility] 77 [address]: Bucket Chucker/Techni artemio ID = [id number] for Anahi Sherman MR, EXTREMITY, LOWER, WITHOUT CONTRAST, [id number] 16:55:00MRI LEFT FOOT.Unlisted Reason for Exam - [...] MDReport Verified Date/Time: 12/27/2019 16:55:07 Reading Location: [facility] Radiology Reading Room MR lower extremity without IV contrast left [id number] 16:55:00Interface, External Ris In - 12/27/2019 4:57 [...] Ring Verified Date/Time: 12/27/2019 16:55:07 Reading Location: [facility] Radiology Reading Room Electronically signed by: Adrienne CHU 12/27/2019 04:55 [facility] [id number] 14:19:00 Test Item Value Reference Range Interpretation Comments POC-GLUCOSE METER 232 mg/dL 70-110 H : TESTED A T [facility] 1317 (BEAKER) (test code [address], = 1538) [facility] 77 [address]: Bucket Chucker/Techni artemio ID = [id number] for Berta Servin CT, CTA AAA, W/ GÓMEZ.EXT.[id number] 11:38:00Bilateral lower extremities Addendum BeginsREPORT STATUS:A I agree with the nonvascular findings with exceptions and emphasis as below:*Moderate right and small left pleural effusions are partially visualized.*Large volume ascites.*Diffuse anasarca*The reflux of contrast into the hepatic veins is concerning for volume overload. Signed: Molly Linares Verified Date/Time: 12/27/2019 11:38:28 Reading Location: [facility] Diagnostic Imaging Reading Room - [place] [address] [address] angiography of the abdominal aorta and runoff, 26-Dec-19 INDICATION: This is a 64 year old female with with lower leg penetrating trauma presents for assessment. TECHNIQUE: Spiral acquisition before and during intravenous contrast administration using a Virgance multidetector CT scanner. Images were obtained before [...] identified. However, significant calcification identified of the [place] left SFA, for example at image 516, [...] the right popliteal artery is patent, with jgbd-nl-epztfinq diffuse calcification identified with no obstructive lesion [...] However, in the distal left SFA, the [place] artery substantial calcification identified and the stent [...] atherosclerosis identified. 4. In the right, the [place] right SFA is not filled by contrast [...] dictated regarding the non-vascular findings by the [employer] Sales Representative Radiologist. Signed: Shlomo Dockery MDReport Verified Date/Time: 12/27/2019 07:59:51 Reading Location: [place] [address] [address] Reading Room Protein electrophoresis, serum 2019-12-27 [...] = 2660) ZIA (test code = ZIA) Bucket Chucker ID Bijal HADLEY F Lab Interpretation (test Abnormal code = 72811-4) [facility] Hospital[facility]OTE[facility] ELECTROPHORESIS, [id number] 09:29:00 Test Item Value Reference Range Interpretation [...] chronic inflammatory response. No monoclonal bands detected. [id number] Rocio Galindo MD (BEAKER) (test code = (electronic signature) 2616) PROTEIN TOTAL SERUM, 6.3 gm/dL 6.0-8.3 SPEP (BEAKER) (test code = 2660) Bucket Chucker ID - LEONIE OLIVEIRA AAA and [id number] 07:59:00Interface, External Ris In - 12/27/2019 11:40 AM CDTAddendum BeginsREPORT STATUS:A I agree with the nonvascular findings with exceptions and emphasis as below:*Moderate right andsmall left pleural effusions are partially visualized.*Large volume ascites.*Diffuse anasarca*The reflux of contrast into the hepatic veins is concerning for volume overload. Signed: Molly Linares MDReport Verified Date/Time: 12/27/2019 11:38:28 Reading Location: [facility] Diagnostic Imaging Reading Room - [place] [address] [address] REPORT CT angiography of the abdominal aorta and runoff, 26-Dec-19 INDICATION: This is a 64 year old female with with lower leg penetrating trauma presents for assessment. TECHNIQUE: Spiral acquisition before and during intravenous contrast administration using a Virgance multidetector CT scanner. Images were obtained before [...] identified. However, significant calcification identified of the [place] left SFA, for example at image 516, [...] the right popliteal artery is patent, with fyoz-mr-nfabbncl diffuse calcification identified with no obstructive lesion [...] However, in the distal left SFA, the [place] artery substantial calcification identified and the stent [...] atherosclerosis identified. 4. In the right, the [place] right SFA is not filled by contrast [...] dictated regarding the non-vascular findings by the [employer] Sales Representative Radiologist. Signed: Shlomo Dockeryeport Verified Date/Time: 12/27/2019 07:59:51 Reading Location: [place] [address] CT Reading Room [facility] [id number] 06:56:00 Test Item Value Reference Range Interpretation Comments POC-GLUCOSE METER 39 mg/dL 70-110 LL : Notified RN/: TESTED (BEAKER) (test code = AT [facility] [address]) [facility] [address]: Bucket Chucker/Techni artemio ID = [id number] for Anahi Sherman COMPREHENSIVE METABOLIC [id number] 06:15:00 Test Item Value Reference Range Interpretation [...] S NOT APPLICABLE FOR DIALYSIS PATIEN TS. Bucket Chucker ID - ADMINPOCT-GLUCOSE [id number] 06:01:00 Test Item Value Reference Range Interpretation Comments POC-GLUCOSE METER 55 mg/dL 70-110 L : Notified RN/MD: TESTED (BEAKER) (test code = AT [address]LS [address]) [facility] [address]: Bucket Chucker/Techni artemio ID = [id number] for Anahi Sherman CBC W/PLT COUNT & AUTO [id number] 05:44:00 Test Item Value Reference Range Interpretation [...] PERCENT (BEAKER) (test code = 2801) POCT-GLUCOSE [id number] 21:03:00 Test Item Value Reference Range Interpretation Comments POC-GLUCOSE METER 278 mg/dL 70-110 H : Notified RN/MD: TESTED (BEAKER) (test code AT [facility] [address] [address] = [address]38) [facility] [address]: Bucket Chucker/Techni artemio ID = [id number] for Anahi Sherman POCT-GLUCOSE [id number] 16:53:00 Test Item Value Reference Range Interpretation Comments POC-GLUCOSE METER 70 mg/dL 70-110 : TESTED A T [address] (BEAKER) (test code = [address], [address]) [place] [address]: Bucket Chucker/Techni artemio ID = [id number] for Nlaini Jean Baptiste POCT-GLUCOSE [id number] 12:11:00 Test Item Value Reference Range Interpretation Comments POC-GLUCOSE METER 97 mg/dL 70-110 : TESTED A T [address] (BEAKER) (test code = [address], [address]) [place] [address]: Bucket Chucker/Techni artemio ID = [id number] for Nalini Jean Baptiste POCT-GLUCOSE [id number] 06:21:00 Test Item Value Reference Range Interpretation Comments POC-GLUCOSE METER 71 mg/dL 70-110 : TESTED A T [address] (BEAKER) (test code = [address], [address]) [place] [address]: Bucket Chucker/Techni artemio ID = [id number] for Nwad iufu, Holly COMPREHENSIVE METABOLIC [id number] 05:50:00 Test Item Value Reference Range Interpretation [...] S NOT APPLICABLE FOR DIALYSIS PATIEN TS. Bucket Chucker ID - ADMINCBC W/PLT COUNT & AUTO [id number] 05:17:00 Test Item Value Reference Range Interpretation [...] (BEAKER) (test code = 2801) Prepare Leuko-Red [id number] 23:54:00 Test Item Value Reference Range Interpretation Comments CROSSMATCH (test code = 2264) COMPATIBLE Unit ABO (test code = O Pos 0080254) UNIT NUMBER (test code = [id number] 934-0) Status (test code = 3295551) [facility] Blood Bank Product (test code RED BLOOD CELLS = 2263) PRODUCT CODE (test code = [id number] 933-2) [facility] [id number] 21:03:00 Test Item Value Reference Range Interpretation Comments POC-GLUCOSE METER 87 mg/dL 70-110 : TESTED A T [address] (BEAKER) (test code = [address], [address]) [place] [address]: Bucket Chucker/Techni artemio ID = [id number] for Nwad iufu, Holly POCT-GLUCOSE [id number] 17:12:00 Test Item Value Reference Range Interpretation Comments POC-GLUCOSE METER 79 mg/dL 70-110 : TESTED A T [address] (BEAKER) (test code = [address], [address]) [place] [address]: Bucket Chucker/Techni artemio ID = [id number] for Akhil rs, Shelea POCT-GLUCOSE [id number] 11:37:00 Test Item Value Reference Range Interpretation Comments POC-GLUCOSE METER 262 mg/dL 70-110 H : TESTED A T [address] (BEAKER) (test code [address], = 1538) [facility] [address]: Bucket Chucker/Techni artemio ID = [id number] for Nalini Jean Baptiste COMPREHENSIVE METABOLIC [id number] 06:29:00 Test Item Value Reference Range Interpretation [...] S NOT APPLICABLE FOR DIALYSIS PATIEN TS. Bucket Chucker ID - ADMINCBC W/PLT COUNT & AUTO [id number] 06:12:00 Test Item Value Reference Range Interpretation [...] PERCENT (BEAKER) (test code = 2801) POCT-GLUCOSE [id number] 06:09:00 Test Item Value Reference Range Interpretation Comments POC-GLUCOSE METER 83 mg/dL 70-110 : Notified RN/MD: TESTED (BEAKER) (test code = AT [address]) [facility] [address]: Bucket Chucker/Techni artemio ID = [id number] for Anahi Sherman POCT-GLUCOSE [id number] 16:26:00 Test Item Value Reference Range Interpretation Comments POC-GLUCOSE METER 182 mg/dL 70-110 H : Notified RN/MD: TESTED (BEAKER) [facility] [address] [facility] [address] [address]: Bucket Chucker/Techni artemio ID = [id number] for Alondra Kelley, [id number] 09:17:00 Test Item Value Reference Range Interpretation Comments Rh Factor (test code = POS 2589) ABO Grouping (test code O PINK TOP 12/24/19 @ 0824 = 2588) [facility] HospitalType and screen, [id number] 07:31:00 Test Item Value Reference Range Interpretation Comments ABO/RH AUTOMATED (BEAKER) (test O POSITIVE ECHO code = 2260) Ab Scrn (test code = 890-4) NEGATIVE ECHO [facility] HospitalCOMPREHENSIVE METABOLIC [id number] 06:42:00 Test Item Value Reference Range Interpretation [...] S NOT APPLICABLE FOR DIALYSIS PATIEN TS. Bucket Chucker ID - ADMINPOCT-GLUCOSE [id number] 06:23:00 Test Item Value Reference Range Interpretation Comments POC-GLUCOSE METER 88 mg/dL 70-110 : TESTED A T [address] (BEAKER) (test code = [address], 1538) [facility] [address]: Bucket Chucker/Techni artemio ID = [id number] for Anne Busby CBC W/PLT COUNT & AUTO [id number] 06:23:00 Test Item Value Reference Range Interpretation [...] PERCENT (BEAKER) (test code = 2801) POCT-GLUCOSE [id number] 21:38:00 Test Item Value Reference Range Interpretation Comments POC-GLUCOSE METER 126 mg/dL 70-110 H : TESTED A T [address] ([facility]) (test code [facility], = 1538) [facility] [address]: Bucket Chucker/Techni artemio ID = [id number] for Brow n, Anne POCT-GLUCOSE [id number] 16:54:00 Test Item Value Reference Range Interpretation Comments POC-GLUCOSE METER 89 mg/dL 70-110 : Notified RN/MD: TESTED ([facility]) (test code = AT [address]) [facility] [address]: Bucket Chucker/Techni artemio ID = [id number] for Repa julio, Alondra MR, EXTREMITY, LOWER, JOINT, WITHOUT CONTRAST, [id number] 16:10:00Unlisted Reason for Exam - Click Yes [...] no drainable collection is identified. Signed: Margot Jordaneport Verified Date/Time: 12/23/2019 16:10:32 Reading Location: [address] Ortho Consult Reading Room MR lower extremity joint only without IV contrast left [id number] 16:10:00Interface, External Ris In - 12/23/2019 4:12 [...] Jordan Verified Date/Time: 12/23/2019 16:10:32 Reading Location: [facility] C013X Ortho Consult Reading Room [facility] CenterMR, BRAIN, WITHOUT [id number] 15:43:00Unlisted Reason for Exam - Click Yes [...] Date/Time: 12/23/2019 15:43:24 MR brain without IV [id number] 15:43:00Interface, External Ris In - 12/23/2019 3:45 [...] IMPRESSION:No acute intracranial abnormality. Signed: Berta Muniz MDRepemily Verified Date/Time: 12/23/2019 15:43:24 [facility] Center[facility]OV2/[facility] ([facility])2019-12-23 14:16:00 Test Item Value Reference Range Interpretation Comments SARS-COV2/RT-PCR (test Negative Not Detected, Negative, code = 1778945) See external report for linked test SARS-COV-[address] [facility] JANET (test code = 8654624) Negative result for this test determines that [...] 564(g) of the Act.Fact Sheet for Healthcare Providers:https://www.[employer]/sites/default/files/product/documents/Fact_Shee d_JO_Eowbjcqkx_Aalo_HKOM-MuJ-3.pdfFact Sheet for Healthcare Patients:https://www.[employer]/sites/default/files/product/ documents/Pcjb_Lliop_Tddgxwvr_Ynlf_GOMM-GlQ-9.pdfPerforming Laboratory:[facility], [place] [address]Gwyxq / lambda light chains, [id number] 12:25:00 Test Item Value Reference Interpretation Comments Range [place] Lt Chain,Free 474.4 mg/L 3.3-19.4 H (test code = 58677-4) Lambda Lt 225.6 mg/L 5.7-26.3 H Chain,Free (test code = 24491-4) [place]/Lambda,Free 2.1 0.26-1.65 H Free annabelle a/lambda (test [...] (test code = Performing Lab ZIA) [facility] [address] [place] [address] Jaguar Stein MD, PhD, CORI Lab Interpretation Abnormal (test code = 78355-7) [facility] HospitalPOCT-GLUCOSE [id number] 11:27:00 Test Item Value Reference Range Interpretation Comments POC-GLUCOSE METER 189 mg/dL 70-110 H : Notified RN/MD: TESTED (ROBERT) (test code AT [facility] [address] = 1538) [facility] [address]: Bucket Chucker/Techni artemio ID = [id number] for Alondra Kelley ARTERIAL DOPPLER LEGS, [id number] 11:22:00Reason for exam:->non healing ulcer , non [...] [place] Radiology Reading Room Arterial Doppler Legs [id number] 11:22:00 Interface, External Ris In - 12/23/2019 [...] peripheral arterial disease. Signed: Luis Alberto Monahan Verified Date/Time: 12/23/2019 11:22:31 Reading Location: [facility] [place] Radiology Reading Room [facility] CenterCOMPREHENSIVE METABOLIC [id number] 04:44:00 Test Item Value Reference Range Interpretation [...] S NOT APPLICABLE FOR DIALYSIS PATIEN TS. Bucket Chucker ID - ADMINCBC W/PLT COUNT & AUTO [id number] 04:35:00 Test Item Value Reference Range Interpretation [...] H PERCENT (BEAKER) (test code = 2801) [id number] 04:29:00 Test Item Value Reference Range Interpretation Comments Ammonia (test code = 36 17- 80 mol/L 34619-2) ZIA (test code = ZIA) Bucket Chucker ID - ADMIN Lab Interpretation (test Normal code = 89819-3) [facility] HospitalAMMONIA2020-09-24 04:29:00 Test Item Value Reference Range Interpretation Comments AMMONIA (BEAKER) (test code = 348) 36 mol/L 17-80 Bucket Chucker ID - ADMINPOCT-GLUCOSE [id number] 20:45:00 Test Item Value Reference Range Interpretation Comments POC-GLUCOSE METER 95 mg/dL 70-110 : TESTED A T [address] (BEAKER) (test code = [address], 15[address]) [place] [address]: Bucket Chucker/Techni artemio ID = [id number] for Anne Busby POCT-GLUCOSE [id number] 17:08:00 Test Item Value Reference Range Interpretation Comments POC-GLUCOSE METER 107 mg/dL 70-110 : TESTED A T [address] (BEAKER) (test code [address], = 1538) [place] [address]: Bucket Chucker/Techni artemio ID = [id number] for Jordyn Fonseca POCT-GLUCOSE [id number] 11:55:00 Test Item Value Reference Range Interpretation Comments POC-GLUCOSE METER 135 mg/dL 70-110 H : TESTED A T [address] (BEAKER) (test code [address], = 1538) [place] [address]: Bucket Chucker/Techni artemio ID = [id number] for Jordyn Fonseca Anti-Nuclear Antibody (ROGER)2019-12-22 11:40:00 Test Item Value Reference Range Interpretation Comments ROGER (test code = 32797-8) Positive Negative A ZIA (test code = ZIA) Test performed by IFA method. Lab Interpretation (test Abnormal code = 47036-8) [facility] HospitalANA Titer & [id number] 11:40:00 Test Item Value Reference Range Interpretation Comments ROGER Titer (test code = 81296-2) 1:40 ROGER Pattern (test code = 1781) Speckled [facility] HospitalANTI-NUCLEAR ANTIBODY (ROGER)2019-12-22 11:40:00 Test Item Value Reference Range Interpretation Comments ANTI-NUCLEAR ANTIBODY (ROGER) (BEAKER) Positive Negative A (test code = 418) Test performed by IFA method.ROGER TITER AND [id number] 11:40:00 Test Item Value Reference Range Interpretation Comments ROGER TITER (BEAKER) (test code = :40 1541) ROGER PATTERN (BEAKER) (test code = Speckled 1781) POCT-GLUCOSE [id number] 06:44:00 Test Item Value Reference Range Interpretation Comments POC-GLUCOSE METER 92 mg/dL 70-110 : TESTED A T [address] (BEAKER) (test code = [address], [address]) [place] [address]: Bucket Chucker/Techni artemio ID = [id number] for Ashley austin Anne COMPREHENSIVE METABOLIC [id number] 06:35:00 Test Item Value Reference Range Interpretation [...] S NOT APPLICABLE FOR DIALYSIS PATIEN TS. Bucket Chucker ID - ADMINCBC W/PLT COUNT & AUTO [id number] 06:16:00 Test Item Value Reference Range Interpretation [...] PERCENT (BEAKER) (test code = 2801) POCT-GLUCOSE [id number] 20:38:00 Test Item Value Reference Range Interpretation Comments POC-GLUCOSE METER 85 mg/dL 70-110 : TESTED A T [address] (BEAKER) (test code = [address], 1538) [place] [address]: Bucket Chucker/Techni artemio ID = [id number] for Anne Busby POCT-GLUCOSE [id number] 18:14:00 Test Item Value Reference Range Interpretation Comments POC-GLUCOSE METER 112 mg/dL 70-110 H : TESTED A T [address] (BEAKER) (test code [address], = 1538) [place] [address]: Bucket Chucker/Techni artemio ID = [id number] for Berta Servin POCT-GLUCOSE [id number] 13:00:00 Test Item Value Reference Range Interpretation Comments POC-GLUCOSE METER 77 mg/dL 70-110 : TESTED A T [address] (BEAKER) (test code = [address], 1538) [place] [address]: Bucket Chucker/Techni artemio ID = [id number] for Berta Servin POCT-GLUCOSE [id number] 07:32:00 Test Item Value Reference Range Interpretation Comments POC-GLUCOSE METER 60 mg/dL 70-110 L : TESTED A T [address] (BEAKER) (test code = [address], 15[address]) [place] [address]: Bucket Chucker/Techni artemio ID = [id number] for Jackson rousseau Marissa COMPREHENSIVE METABOLIC [id number] 06:11:00 Test Item Value Reference Range Interpretation [...] S NOT APPLICABLE FOR DIALYSIS PATIEN TS. Bucket Chucker ID - ADMINC-Reactive [id number] 06:06:00 Test Item Value Reference Range Interpretation Comments CRP (test code = 676) 1.63 mg/dL 0-0.5 H ZIA (test code = ZIA) Bucket Chucker ID - ADMIN Lab Interpretation (test Abnormal code = 68399-6) [facility] HospitalC-REACTIVE [id number] 06:06:00 Test Item Value Reference Range Interpretation Comments C-REACTIVE PROTEIN (BEAKER) (test 1.63 mg/dL 0.00-0.50 H code = 676) Bucket Chucker ID - ADMINPOCT-GLUCOSE [id number] 06:04:00 Test Item Value Reference Range Interpretation Comments POC-GLUCOSE METER 56 mg/dL 70-110 L : Notified RN/MD: TESTED (BEAKER) (test code = AT [address]) [facility] [address]: Bucket Chucker/Techni artemio ID = [id number] for Nelda Abdi CBC W/PLT COUNT & AUTO [id number] 05:53:00 Test Item Value Reference Range Interpretation [...] (BEAKER) (test code = 2801) U/S, ABDOMINAL, [id number] 22:02:00Reason for exam:->thrombocytopenia / eval for hepatosplenomegalyFINAL [...] MDReport Verified Date/Time: 12/20/2019 22:02:21 US abdomen [id number] 22:02:00Interface, External Ris In - 12/20/2019 10:04 [...] Hever Marin MDReport Verified Date/Time: 12/20/2019 22:02:21 [facility] CenterPOCT-GLUCOSE [id number] 20:36:00 Test Item Value Reference Range Interpretation Comments POC-GLUCOSE METER 74 mg/dL 70-110 : Notified RN/MD: TESTED (BEAKER) (test code = AT [address]) [address], [place] [address]: Bucket Chucker/Techni artemio ID = [id number] for Nelda Abdi POCT-GLUCOSE [id number] 17:50:00 Test Item Value Reference Range Interpretation Comments POC-GLUCOSE METER 72 mg/dL 70-110 : TESTED A T [address] (BEAKER) (test code = [address], 1538) [facility] [place] [address]: Bucket Chucker/Techni artemio ID = [id number] for Christina osborne Berta CT, BRAIN, WITHOUT [id number] 16:08:00Unlisted Reason for Exam - Click Yes [...] Date/Time: 12/20/2019 16:08:40 CT brain without IV [id number] 16:08:00Interface, External Ris In - 12/20/2019 4:10 [...] for further characteriz ation. Signed: Berta Muniz MDRepparkland health center Verified Date/Time: 12/20/2019 16:08:40 [facility] CenterRAD, FOOT, 2 VIEWS, [id number] 15:15:00Reason for exam:->Rule out osteomyelitisShould this be [...] Radiology Reading Room , FOOT, 2 VIEWS, [id number] 15:15:00Reason for exam:->Rule out osteomyelitisShould this be [...] Radiology Reading Room XR foot 2 views [id number] 15:15:00Interface, External Ris In - 12/20/2019 3:17 [...] Monahaneport Verified Date/Time: 12/20/2019 15:15:25 Reading Location: [facility] Radiology Reading Room [facility] CenterXR foot 2 views [id number] 15:15:00Interface, External Ris In - 12/20/2019 3:17 [...] forefoot. Vascular calcifications. Signed: Luis Alberto Monahan MDRepemily Verified Date/Time: 12/20/2019 15:15:25 Reading Location: [facility] Radiology Reading Room [facility] CenterAMMONIA2020-09-21 14:56:00 Test Item Value Reference Range Interpretation Comments AMMONIA (BEAKER) (test code = 348) 33 mol/L 17-80 Bucket Chucker ID - ADMINBlood gas, [id number] 14:41:00 Test Item Value Reference Range Interpretation [...] % Lab Interpretation (test code = Abnormal 96570-1) [facility] HospitalBLOOD GAS, [id number] 14:41:00 Test Item Value Reference Range Interpretation [...] code = 1819) 32.0 % Occult blood, [id number] 11:56:00 Test Item Value Reference Range Interpretation Comments Occult blood (test code = 2335-8) Negative Negative Lab Interpretation (test code = Normal 94981-7) [facility] HospitalOCCULT BLOOD, [id number] 11:56:00 Test Item Value Reference Range Interpretation Comments FECAL OCCULT BLOOD (BEAKER) (test Negative Negative code = 618) POCT-GLUCOSE [id number] 11:39:00 Test Item Value Reference Range Interpretation Comments POC-GLUCOSE METER 88 mg/dL 70-110 : TESTED A T [address] (BEAKER) (test code = [address], 1538) [facility] [address]: Bucket Chucker/Techni artemio ID = [id number] for Gifty Phelps [id number] 11:22:00 Test Item Value Reference Range Interpretation Comments Haptoglobin (test code = <8 14-258 L 4542-7) ZIA (test code = ZIA) Bucket Chucker ID - LEONIE F Lab Interpretation (test Abnormal code = 11269-0) [facility] HospitalHAPTOGLOBIN2020-09-21 11:22:00 Test Item Value Reference Range Interpretation Comments HAPTOGLOBIN (BEAKER) (test code = < mg/dL 14-258 L 366) Bucket Chucker ID - LEONIE FT4, [id number] 11:01:00 Test Item Value Reference Range Interpretation Comments Free T4 (test code = 0.52 ng/dL 0.9-1.8 L 3024-7) ZIA (test code = ZIA) Bucket Chucker ID - ADMIN Lab Interpretation (test Abnormal code = 82480-5) [facility] HospitalT4, [id number] 11:01:00 Test Item Value Reference Range Interpretation Comments FREE T4 (BEAKER) (test code = 655) 0.52 ng/dL 0.90-1.80 L Bucket Chucker ID - ADMINPeripheral Blood Smear - Path [id number] 08:19:00 Test Item Value Reference Range Interpretation [...] Griffith M.D. code = 2849) (electronic signature) [facility] HospitalPERIPHERAL BLOOD SMEAR - PATHOLOGIST REVIEW 2019-12-20 08:19:00 Test Item Value Reference Range Interpretation Comments RBC MORPHOLOGY Target Cells (BEAKER) (test code = 2846) RBC MORPHOLOGY Basophilic Stippling (BEAKER) (test code = 28779) RBC MORPHOLOGY Nucleated Red Blood Cells (BEAKER) (test code = 90699) PERIPHERAL SMR Normochromic normocytic REVIEW (BEAKER) anemia with a few target (test code = 2640) cells, nucleated RBCs and basophilic stippling. No increase in schistocytes. WBCs normal in number and morphology. Thrombocytopenia with normal platelet morphology. [id number]-[id number] Jovita Griffith M.D. 2 (BEAKER) (test (electronic signature) code = 2849) Vitamin B12 and [id number] 06:37:00 Test Item Value Reference Range Interpretation Comments Vitamin B12 (test code = 1431 pg/mL 211-911 H 2132-9) Folate (test code = 17.00 ng/mL >=5.4 2284-8) ZIA (test code = ZIA) Bucket Chucker ID - ADMIN Lab Interpretation (test Abnormal code = 74656-1) [facility] HospitalVITAMIN B12 AND [id number] 06:37:00 Test Item Value Reference Range Interpretation Comments VITAMIN B12 (BEAKER) (test code = 1431 pg/mL 211-911 H 774) FOLATE (BEAKER) (test code = 362) 17.00 ng/mL >=5.4 Bucket Chucker ID - ADMINPOCT-GLUCOSE [id number] 06:32:00 Test Item Value Reference Range Interpretation Comments POC-GLUCOSE METER 79 mg/dL 70-110 : TESTED A T [facility] 13[address] (BEAKER) (test code = [address], 1538) [facility] 77 [address]: Bucket Chucker/Techni artemio ID = [id number] for Anahi Sherman [id number] 06:25:00 Test Item Value Reference Range Interpretation Comments Ferritin (test code = 595.00 ng/mL 10-291 H 2276-4) ZIA (test code = ZIA) Bucket Chucker ID - ADMIN Lab Interpretation (test Abnormal code = 07822-8) [facility] T4 If [id number] 06:25:00 Test Item Value Reference Range Interpretation Comments TSH (test code = 21.210 0.350- 5.500 uIU/mL H 40319-5) ZIA (test code = ZIA) Bucket Chucker ID - ADMIN Lab Interpretation (test Abnormal code = 65335-1) [facility] 06:25:00 Test Item Value Reference Range Interpretation Comments FERRITIN (BEAKER) (test code = 595.00 ng/mL 10.00-291.00 H 361) Bucket Chucker ID - ADMINTSH/FREE T4 IF [id number] 06:25:00 Test Item Value Reference Range Interpretation Comments THYROID STIMULATING HORMONE 21.210 uIU/mL 0.350-5.500 H (BEAKER) (test code = 772) Bucket Chucker ID - IJZQRWuhuphkrwv9938-46-14 06:06:00 Test Item Value Reference Range Interpretation Comments Fibrinogen (test code = 340 mg/dL 598-597 9530-7) ZIA (test code = ZIA) Final Information (Auto Output) Lab Interpretation (test Normal code = 96405-6) [facility]PT/[id number] 06:06:00 Test Item Value Reference Range Interpretation Comments Protime (test code = 13.5 9.3- 12.0 sec H 5902-2) INR (test code = 1.25 <=5.90 6301-6) PTT (test code = 38.2 23.0- 35.0 sec H 16320-0) ZIA (test code = ZIA) RECOMMENDED COUMADIN/WARFARIN INR THERAPY RANGESSTANDARD DOSE: 2.0 - 3.0 Includes: PROPHYLAXIS for venous thrombosis, systemic embolization; TREATMENT for venous thrombosis and/or pulmonary embolus.HIGH RISK: Target INR is 2.5-3.5 for patients with mechanical heart valves.Final Information (Auto Output)Final Information (Auto Output)Final Information (Auto Output) Lab Interpretation Abnormal (test code = 68263-3) [facility]EN[facility] 06:06:00 Test Item Value Reference Range Interpretation Comments FIBRINOGEN LEVEL (BEAKER) (test 340 mg/dL 200-400 code = 658) Final Information (Auto Output)[id number] 06:06:00 Test Item Value Reference Range Interpretation [...] = 2502-3) ZIA (test code = ZIA) Bucket Chucker ID - ADMIN Lab Interpretation (test Abnormal code = 54505-9) [facility] HospitalIRON, TIBC, % SAT. (WITHOUT FERRITIN)2019-12-20 05:59:00 Test Item Value Reference Range Interpretation Comments IRON (BEAKER) (test code = 547) 92.0 ug/dL 45.0-170.0 TOTAL IRON BINDING CAPACITY 151 ug/dL 250-550 L (BEAKER) (test code = 769) IRON % SATURATION (2) (BEAKER) 61 % 20-55 H (test code = 2590) Bucket Chucker ID - ADMINCOMPREHENSIVE METABOLIC [id number] 05:55:00 Test Item Value Reference Range Interpretation [...] S NOT APPLICABLE FOR DIALYSIS PATIEN TS. Bucket Chucker ID - ULUZZR-lzsty4364-02-21 05:46:00 Test Item Value Reference Range Interpretation Comments D-Dimer, Quant (test 1.09 mg/L <0.50 H code = 61021-3) ZIA (test code = ZIA) REGARDING D-DIMER RESULTS: The 98% NPV (Negative Predictive Value) for DVT/PE exclusion is 0.50 mg/L FEU as suggested by the staff educator and as approved by the FDA.Final Information (Auto Output) Lab Interpretation (test Abnormal code = 22453-1) [facility] HospitalD-[id number] 05:46:00 Test Item Value Reference Range Interpretation Comments D-DIMER QUANTITATIVE (BEAKER) (test 1.09 mg/L <0.50 H code = 671) REGARDING D-DIMER RESULTS: The 98% NPV (Negative Predictive Value) for DVT/PE exclusion is 0.50 mg/LFEU as suggested by the staff educator and as approved by the FDA.Final Information (Auto Output)Reticulocyte [id number] 05:42:00 Test Item Value Reference Range Interpretation Comments % Retic (test code = 44902-9) 5.9 % 0.4-2.9 H Lab Interpretation (test code = Abnormal 84924-7) [facility] HospitalRETICULOCYTE [id number] 05:42:00 Test Item Value Reference Range Interpretation Comments RETICULOCYTE COUNT PCT (BEAKER) (test 5.9 % 0.4-2.9 H code = 575) CBC W/PLT COUNT & AUTO [id number] 05:33:00 Test Item Value Reference Range Interpretation [...] 0-0 H PERCENT (BEAKER) (test code = 6291) Lactate dehydrogenase (LDH)2019-12-19 21:19:00 Test Item Value Reference Range Interpretation Comments LDH (test code = 2532-0) 178 U/L 107-206 ZIA (test code = ZIA) Bucket Chucker ID - ADMIN Lab Interpretation (test Normal code = 26622-9) [facility] HospitalLACTATE DEHYDROGENASE (LDH)2019-12-19 21:19:00 Test Item Value Reference Range Interpretation Comments LACTATE DEHYDROGENASE (BEAKER) (test 178 U/L 107-206 code = 635) Bucket Chucker ID - ADMINPOCT-GLUCOSE [id number] 20:47:00 Test Item Value Reference Range Interpretation Comments POC-GLUCOSE METER 102 mg/dL 70-110 : TESTED A T [address] (BEAKER) (test code [address], = 1538) [place] [address]: Bucket Chucker/Techni artemio ID = [id number] for Anahi Sherman POCT-GLUCOSE [id number] 16:18:00 Test Item Value Reference Range Interpretation Comments POC-GLUCOSE METER 96 mg/dL 70-110 : TESTED A T [address] (BEAKER) (test code = [address], 1538) [place] [address] 478: Bucket Chucker/Techni artemio ID = [id number] for Nalini Jean Baptiste Basic Metabolic Hkdhy1904-07-19 06:26:00 Test Item Value Reference Range Interpretation Comments Sodium (test code = 138 meq/L 363-916 9350-2) Potassium (test code = 3.9 meq/L 3.6-5.5 2823-3) Chloride (test code = 99 meq/L 98-106 2075-0) CO2 (test code = 30 meq/L 20-29 H 8-9) BUN (test code = 47 mg/dL 10-26 H 3094-0) Creatinine (test code 3.04 mg/dL 0.5-1.2 H = 2160-0) Glucose (test code = 82 mg/dL 70-110 2345-7) Calcium (test code = 7.9 mg/dL 8.5-10.5 L 31679-8) EGFR (test code = 15 mL/min/1.73 [place] [address]-7) NOT ACCURATE CREATININE CLEARANCE IN PREDICTING GLOMERULAR FILTRATION RATE . ESTIMATED GFR I S NOT APPLICABLE FOR DIALYSIS PATIENTS. ZIA (test code = ZIA) Bucket Chucker ID - ADMIN Lab Interpretation Abnormal (test code = 01716-6) [facility] METABOLIC [id number] 06:26:00 Test Item Value Reference Range Interpretation [...] S NOT APPLICABLE FOR DIALYSIS PATIEN TS. Bucket Chucker ID - ADMINCBC W/PLT COUNT & AUTO [id number] 06:04:00 Test Item Value Reference Range Interpretation [...] PERCENT (BEAKER) (test code = 2801) POCT-GLUCOSE [id number] 05:35:00 Test Item Value Reference Range Interpretation Comments POC-GLUCOSE METER 85 mg/dL 70-110 : Notified RN/MD: TESTED (BEAKER) (test code = AT [facility] L [address]) [place] [address]: Bucket Chucker/Techni artemio ID = [id number] for Niraj Zonia POCT-GLUCOSE [id number] 21:46:00 Test Item Value Reference Range Interpretation Comments POC-GLUCOSE METER 125 mg/dL 70-110 H : Notified RN/MD: [facility] (test code AT [facility] [address] 1538) [place] [address]: Bucket Chucker/Techni artemio ID = [id number] for Zonia Healy POCT-GLUCOSE [id number] 16:17:00 Test Item Value Reference Range Interpretation Comments POC-GLUCOSE METER 103 mg/dL 70-110 : TESTED A T [address] (BEAKER) (test code [address], = 1538) [place] [address]: Bucket Chucker/Techni artemio ID = [id number] for Akhil hurtado, Rachelleea POCT-GLUCOSE [id number] 07:56:00 Test Item Value Reference Range Interpretation Comments POC-GLUCOSE METER 111 mg/dL 70-110 H : TESTED A T [address] (BEAKER) (test code [address], = 1538) [place] [address]: Bucket Chucker/Techni artemio ID = [id number] for Akhil rs, Shelea POCT-GLUCOSE [id number] 06:25:00 Test Item Value Reference Range Interpretation Comments POC-GLUCOSE METER 57 mg/dL 70-110 L : TESTED A T [address] (BEAKER) (test code = [address], 1538) [place] [address]: Bucket Chucker/Techni artemio ID = [id number] for Brow n, Anne POCT-GLUCOSE [id number] 21:55:00 Test Item Value Reference Range Interpretation Comments POC-GLUCOSE METER 76 mg/dL 70-110 : TESTED A T [address] (BEAKER) (test code = [address], 153) [place] [address] 478: Bucket Chucker/Techni artemio ID = [id number] for Brow n, Anne POCT-GLUCOSE [id number] 18:03:00 Test Item Value Reference Range Interpretation Comments POC-GLUCOSE METER 81 mg/dL 70-110 : TESTED A T [address] (BEAKER) (test code = [address], 153) [place] [address] 478: Bucket Chucker/Techni artemio ID = [id number] for Ericka Daniel POCT-GLUCOSE [id number] 12:33:00 Test Item Value Reference Range Interpretation Comments POC-GLUCOSE METER 73 mg/dL 70-110 : TESTED A T [address] (BEAKER) (test code = [address], 1538) [facility] 77 478: Bucket Chucker/Techni artemio ID = [id number] for Marisela Bolton Hepatitis B surface [id number] 10:49:00 Test Item Value Reference Range Interpretation Comments Hep B S Ab (test code = <8.0 <8.0 mIU/mL 14996-0) ZIA (test code = ZIA) Bucket Chucker ID - LEONIE Jay Lab Interpretation (test Normal code = 54700-2) [facility] SURFACE [id number] 10:49:00 Test Item Value Reference Range Interpretation Comments HEPATITIS B SURFACE ANTIBODY < mIU/mL <8.0 (BEAKER) (test code = 647) Bucket Chucker ID - LEONIE FHepatitis B core antibody, [id number] 10:43:00 Test Item Value Reference Range Interpretation Comments Hep B Core Total Ab Nonreactive Nonreactive (test code = 78974-0) ZIA (test code = ZIA) Bucket Chucker ID Bijal Jay Lab Interpretation (test Normal code = 26013-2) [facility] C [id number] 10:43:00 Test Item Value Reference Range Interpretation Comments Hepatitis C Ab (test Nonreactive Nonreactive code = 42445-5) ZIA (test code = ZIA) Bucket Chucker ID Bijal Jay Lab Interpretation (test Normal code = 93992-9) [facility] [id number] 10:43:00 Test Item Value Reference Range Interpretation Comments HEPATITIS C ANTIBODY (BEAKER) Nonreactive Nonreactive (test code = 367) Bucket Chucker ID - LEONIE FHEPATITIS B CORE ANTIBODY, [id number] 10:43:00 Test Item Value Reference Range Interpretation Comments HEPATITIS B CORE TOTAL ANTIBODY Nonreactive Nonreactive (BEAKER) (test code = 497) Bucket Chucker ID - LEONIE FPOCT-GLUCOSE [id number] 06:31:00 Test Item Value Reference Range Interpretation Comments POC-GLUCOSE METER 67 mg/dL 70-110 L : TESTED A T [address] (BEAKER) (test code = [address], 1538) [facility] 77 [address]: Bucket Chucker/Techni artemio ID = [id number] for Anne Busby COMPREHENSIVE METABOLIC [id number] 05:10:00 Test Item Value Reference Range Interpretation [...] S NOT APPLICABLE FOR DIALYSIS PATIEN TS. Bucket Chucker ID - ADMINCBC W/PLT COUNT & AUTO [id number] 04:36:00 Test Item Value Reference Range Interpretation [...] PERCENT (BEAKER) (test code = 2801) POCT-GLUCOSE [id number] 21:14:00 Test Item Value Reference Range Interpretation Comments POC-GLUCOSE METER 79 mg/dL 70-110 : TESTED A T [address] (BEAKER) (test code = [address], 1538) [facility] 77 478: Bucket Chucker/Techni artemio ID = [id number] for Anne Busby POCT-GLUCOSE [id number] 18:35:00 Test Item Value Reference Range Interpretation Comments POC-GLUCOSE METER 68 mg/dL 70-110 L : Notified RN/MD: TESTED (ROBERT) (test code = AT [facility] L [address]) [place] [address]: Bucket Chucker/Techni artemio ID = [id number] for Alondra Kelley SARS-COV2/RT-PCR ([facility])2019-12-16 17:53:00 Test Item Value Reference Range Interpretation Comments SARS-COV2/RT-PCR (test Negative Not Detected, Negative, code = 1130437) See external report for linked test SARS-COV-2 PERFORMING LAB [facility] (test code = 9151352) Negative result for this test determines that [...] 564(g) of the Act.Fact Sheet for Healthcare Providers:https://www.[employer]/sites/default/files/product/documents/Fact_Troy ortizo_YY_Crnsypuki_Tkqq_BMKR-RxE-7.pdfFact Sheet for Healthcare Patients:https://www.[employer]/sites/default/files/product/ documents/Mosp_Dpyiz_Bgunqssc_Ocle_SBOE-ThU-6.pdfPerforming Laboratory:[facility], [place] [address]Tkboecudb B surface [id number] 16:57:00 Test Item Value Reference Range Interpretation Comments HBsAg Screen (test code = Nonreactive Nonreactive 5195-3) ZIA (test code = ZIA) Bucket Chucker ID - ADMIN Lab Interpretation (test Normal code = 84650-1) [facility] SURFACE [id number] 16:57:00 Test Item Value Reference Range Interpretation Comments HEPATITIS B SURFACE ANTIGEN (2) Nonreactive Nonreactive (BEAKER) (test code = 2585) Bucket Chucker ID - ADMINANG, TUNNELED CATHETER [id number] 15:06:00Reason for Central Line/PICC?->Need for hemodialysis accessReason [...] the patient's medical record by the nurse. Verification Lead: Soto Arias M.D. Workforce Management Analyst: none. Approach: Right internal jugular vein Estimated [...] needle into the right atrium. A 4 Mosotho micropuncture sheath was placed and a 0.035 wire was advanced into the IVC. A subcutaneous tunnel was created in the left anterior chest wall by blunt dissection. A 23 cm tip to cuff 15.5 Mosotho Duraflow 2 catheter was brought through the [...] [facility] [facility] Reading Room IR Tunneled Catheter [id number] 15:06:00 Interface, External Ris In - 12/16/2019 [...] the patient's medical record by the nurse. Verification Lead: Roberto Carlos Carroll istant: none. Approach: Right internal jugular vein [...] A 23 cm tip to cuff 15.5 Mosotho Duraflow 2 catheter was brought through the [...] the procedure well and left the depa rtmclaren caro region in the same condition. Results: Spot radiograph [...] [facility] Reading [facility]PO[facility] [id number] 14:59:00 Test Item Value Reference Range Interpretation Comments POC-GLUCOSE METER 70 mg/dL 70-110 : Notified RN/MD: TESTED ([facility]) (test code = AT [facility] L [address]) [facility] [address]: Bucket Chucker/Techni artemio ID = [id number] for Alondra Kelley POCT-GLUCOSE [id number] 11:13:00 Test Item Value Reference Range Interpretation Comments POC-GLUCOSE METER 72 mg/dL 70-110 : Notified RN/MD: TESTED ([facility]) (test code = AT [facility] L [address]) [facility] [address]: Bucket Chucker/Techni artemio ID = [id number] for Alondra Kelley RAD, CHEST, 1 VIEW, NON [id number] 09:20:00Reason for exam:->fallShould this be performed at [...] MDReport Verified Date/Time: 12/16/2019 09:20:06 Reading Location: [facility] Radiology Reading Room XR chest 1 view portable / [id number] 09:20:00Interface, External Ris In - 12/16/2019 9:22 [...] MDReport Verified Date/Time: 12/16/2019 09:20:06 Reading Location: [facility] Radiology Reading Room Electronically yeimi d by: SOTO ARIAS MD on 12/16/2019 09:20 [facility] POCT-GLUCOSE [id number] 06:03:00 Test Item Value Reference Range Interpretation Comments POC-GLUCOSE METER 74 mg/dL 70-110 : Notified RN/MD: TESTED (BEAKER) (test code = AT [facility] [address]) [facility] [address]: Bucket Chucker/Techni artemio ID = [id number] for Zonia Healy BASIC METABOLIC [id number] 05:08:00 Test Item Value Reference Range Interpretation [...] S NOT APPLICABLE FOR DIALYSIS PATIEN TS. Bucket Chucker ID - ADMINProthrombin time/[id number] 05:01:00 Test Item Value Reference Range Interpretation [...] Output) Lab Interpretation Abnormal (test code = 46540-1) [facility] HospitalPROTHROMBIN TIME/[id number] 05:01:00 Test Item Value Reference Range Interpretation [...] Information (Auto Output)CBC W/PLT COUNT & AUTO [id number] 04:46:00 Test Item Value Reference Range Interpretation [...] PERCENT (BEAKER) (test code = 2801) POCT-GLUCOSE [id number] 17:13:00 Test Item Value Reference Range Interpretation Comments POC-GLUCOSE METER 220 mg/dL 70-110 H TESTED AT [place] [address] ([facility]) (test code = [facility] 1538) [address] BASIC METABOLIC [id number] 15:47:00 Test Item Value Reference Range Interpretation [...] NOT APPLICABLE FOR DIALYSIS PATIEN TS. POCT-GLUCOSE [id number] 11:30:00 Test Item Value Reference Range Interpretation Comments POC-GLUCOSE METER 268 mg/dL 70-110 H TESTED AT [place] [address] ([facility]) (test code = [facility] 1538) [address] POCT-GLUCOSE [id number] 07:08:00 Test Item Value Reference Range Interpretation Comments POC-GLUCOSE METER 208 mg/dL 70-110 H TESTED AT [place] [address] ([facility]) (test code = [facility] 1538) [address] CALCIUM, [id number] 06:47:00 Test Item Value Reference Range Interpretation Comments CALCIUM IONIZED (BEAKER) (test 1.11 mmol/L 1.12-1.27 L code = 698) PH, BLOOD (BEAKER) (test code = 7.40 1810) BASIC METABOLIC [id number] 06:40:00 Test Item Value Reference Range Interpretation [...] S NOT APPLICABLE FOR DIALYSIS PATIEN TS. [id number] 06:33:00 Test Item Value Reference Range Interpretation Comments PHOSPHORUS (BEAKER) (test code = 5.1 mg/dL 2.3-4.7 H 604) [id number] 06:33:00 Test Item Value Reference Range Interpretation Comments MAGNESIUM (BEAKER) (test code = 2.0 mg/dL 1.6-2.6 627) LACTIC ACID, VENOUS, WHOLE [id number] 06:02:00 Test Item Value Reference Range Interpretation Comments LACTATE BLOOD VENOUS (2) (BEAKER) 0.8 mmol/L 0.5-2.2 (test code = 2872) Effective 08/02/2015: Units/Reference Range ChangeNew: 0.5-2.2 mmol/L Previous: 5-20 mg/dLCBC W/PLT COUNT & AUTO [id number] 05:54:00 Test Item Value Reference Range Interpretation [...] PERCENT (BEAKER) (test code = 2801) POCT-GLUCOSE [id number] 21:30:00 Test Item Value Reference Range Interpretation Comments POC-GLUCOSE METER 248 mg/dL 70-[address] [facility] 6720 (BEAKER) (test code = [place] 1538) [address] RAD, [id number] 21:22:00Reason for exam:->fall, tailbone painFINAL REPORT RAD, [...] Connor Verified Date/Time: 09/04/2017 21:22:03 Reading Location: [address] Reading Room POCT-GLUCOSE [id number] 17:37:00 Test Item Value Reference Range Interpretation Comments POC-GLUCOSE METER 222 mg/dL 70-110 H TESTED AT [place] [address] ([facility]) (test code = JULIANO [facility]borne [facility] 1538) [address] POCT-GLUCOSE [id number] 13:55:00 Test Item Value Reference Range Interpretation Comments POC-GLUCOSE METER 194 mg/dL 70-110 H TESTED AT [place] [address] ([facility]) (test code = JULIANO [facility]borne [facility] 1538) [address] POCT-GLUCOSE [id number] 12:34:00 Test Item Value Reference Range Interpretation Comments POC-GLUCOSE METER 229 mg/dL 70-110 H TESTED AT [place] [address] ([facility]) (test code = JULIANO Osborne [facility] 1538) [address] POCT-GLUCOSE [id number] 08:00:00 Test Item Value Reference Range Interpretation Comments POC-GLUCOSE METER 159 mg/dL 70-110 H TESTED AT [place] [address] ([facility]) (test code = JULINAO Osborne [facility] 1538) [address] CALCIUM, [id number] 06:00:00 Test Item Value Reference Range Interpretation Comments CALCIUM IONIZED (BEAKER) (test 1.05 mmol/L 1.12-1.27 L code = 698) PH, BLOOD (BEAKER) (test code = 7.45 1810) [id number] 05:59:00 Test Item Value Reference Range Interpretation Comments PHOSPHORUS (BEAKER) (test code = 4.8 mg/dL 2.3-4.7 H 604) [id number] 05:59:00 Test Item Value Reference Range Interpretation Comments MAGNESIUM (BEAKER) (test code = 2.0 mg/dL 1.6-2.6 627) BASIC METABOLIC [id number] 05:59:00 Test Item Value Reference Range Interpretation [...] = 380) CBC W/PLT COUNT & AUTO [id number] 05:32:00 Test Item Value Reference Range Interpretation [...] PERCENT (BEAKER) (test code = 2801) POCT-GLUCOSE [id number] 20:36:00 Test Item Value Reference Range Interpretation Comments POC-GLUCOSE METER 211 mg/dL 70-[address] [facility] 6720 (BEAKER) (test code = JULIANO Osborne [facility] 1538) [address] CREATININE, RANDOM [id number] 19:55:00 Test Item Value Reference Range Interpretation Comments CREATININE URINE (BEAKER) (test 16.1 mg/dL code = 375) Reference Range: No NormalsPROTEIN, RANDOM [id number] 19:55:00 Test Item Value Reference Range Interpretation Comments PROTEIN, URINE (BEAKER) (test code 102 mg/dL 0-14 H = 1569) POCT-GLUCOSE [id number] 18:04:00 Test Item Value Reference Range Interpretation Comments POC-GLUCOSE METER 177 mg/dL 70-[address] [facility] 6720 ([facility] (test code = [facility] 1538) [address] POCT-GLUCOSE [id number] 11:59:00 Test Item Value Reference Range Interpretation Comments POC-GLUCOSE METER 244 mg/dL 70-[address] [facility] 67 ([facility]) (test code = [facility] 1538) [address] POCT-GLUCOSE [id number] 07:53:00 Test Item Value Reference Range Interpretation Comments POC-GLUCOSE METER 160 mg/dL 70-[address] [facility] 67 ([facility]) (test code = [facility] 1538) [address] BASIC METABOLIC [id number] 05:29:00 Test Item Value Reference Range Interpretation [...] S NOT APPLICABLE FOR DIALYSIS PATIEN TS. [id number] 05:21:00 Test Item Value Reference Range Interpretation Comments MAGNESIUM (BEAKER) (test code = 2.1 mg/dL 1.6-2.6 627) HEPATIC FUNCTION [id number] 05:21:00 Test Item Value Reference Range Interpretation [...] code = 23 U/L 6-55 347) TROPONIN [id number] 05:18:00 Test Item Value Reference Range Interpretation [...] PERCENT (BEAKER) (test code = 2801) TROPONIN [id number] 23:40:00 Test Item Value Reference Range Interpretation [...] acidosis, acute neurological disease, and persistent tachyarrhythmia.POCT-GLUCOSE [id number] 22:51:00 Test Item Value Reference Range Interpretation Comments POC-GLUCOSE METER 214 mg/dL 70-[address] [facility] 6720 (BEAKER) (test code = [place] 1538) [address] RAD, CHEST, 1 VIEW, NON [id number] 21:42:00Reason for exam:->CHEST PAINShould this be performed at the bedside?->YesFINAL REPORT RAD, CHEST, 1 VIEW, NON DEPT INDICATION: CHEST PAIN COMPARISON: Chest x-ray 4 weeks ago TECHNIQUE: Single frontal view of the chest. IMPRESSION:Cardiomegaly.Mild pulmonary interstitial edema with a small right- sided effusion.No acute osseous abnormality. Signed: Dario Abraham MDReport Verified Date/Time: 09/02/2017 21:42:11 Reading Location: [address] Reading Room CREATININE, RANDOM [id number] 21:10:00 Test Item Value Reference Range Interpretation Comments CREATININE URINE (BEAKER) (test 35.5 mg/dL code = 375) Reference Range: No NormalsSODIUM, RANDOM [id number] 21:10:00 Test Item Value Reference Range Interpretation Comments SODIUM URINE (BEAKER) (test code = 80 meq/L 243) Reference Range: No NormalsURINALYSIS W/ [id number] 20:59:00 Test Item Value Reference Range Interpretation [...] code = 514) SOURCE(BEAKER) (test code = 4585) BASIC METABOLIC [id number] 16:49:00 Test Item Value Reference Range Interpretation [...] S NOT APPLICABLE FOR DIALYSIS PATIEN TS. [id number] 16:38:00 Test Item Value Reference Range Interpretation [...] (BEAKER) (test code = 700) BASIC METABOLIC [id number] 13:43:00 Test Item Value Reference Range Interpretation [...] NOT APPLICABLE FOR DIALYSIS PATIEN TS. POCT-GLUCOSE [id number] 12:44:00 Test Item Value Reference Range Interpretation Comments POC-GLUCOSE METER 283 mg/dL 70-[address] [facility] 6720 (BEAKER) (test code = JULIANO RUTH [place] 1538) [address] CALCIUM, [id number] 07:03:00 Test Item Value Reference Range Interpretation Comments CALCIUM IONIZED (BEAKER) (test 1.02 mmol/L 1.12-1.27 L code = 698) PH, BLOOD (BEAKER) (test code = 7.43 1810) [id number] 05:28:00 Test Item Value Reference Range Interpretation Comments PHOSPHORUS (BEAKER) (test code = 3.3 mg/dL 2.3-4.7 604) [id number] 05:28:00 Test Item Value Reference Range Interpretation Comments MAGNESIUM (BEAKER) (test code = 1.5 mg/dL 1.6-2.6 L 627) BASIC METABOLIC [id number] 05:28:00 Test Item Value Reference Range Interpretation [...] PATIEN TS. CBC W/PLT COUNT & AUTO [id number] 05:06:00 Test Item Value Reference Range Interpretation [...] PERCENT (BEAKER) (test code = 2801) POCT-GLUCOSE [id number] 21:08:00 Test Item Value Reference Range Interpretation Comments POC-GLUCOSE METER 202 mg/dL 70-110 H TESTED AT [place] [address] (BEAKER) (test code = JULIANO Osborne [facility] 1538) [address] POCT-GLUCOSE [id number] 16:50:00 Test Item Value Reference Range Interpretation Comments POC-GLUCOSE METER 287 mg/dL 70-110 H TESTED AT [place] [address] (BEAKER) (test code = JULIANO Osborne [facility] 1538) [address] POCT-GLUCOSE [id number] 12:21:00 Test Item Value Reference Range Interpretation Comments POC-GLUCOSE METER 213 mg/dL 70-110 H TESTED AT [place] [address] (BEAKER) (test code = JULIANO Osborne [facility] 1538) [address] POCT-GLUCOSE [id number] 08:28:00 Test Item Value Reference Range Interpretation Comments POC-GLUCOSE METER 178 mg/dL 70-110 H TESTED AT [place] [address] (BEAKER) (test code = JULIANO Osborne [facility] 1538) [address] CALCIUM, [id number] 07:06:00 Test Item Value Reference Range Interpretation Comments CALCIUM IONIZED (BEAKER) (test 0.99 mmol/L 1.12-1.27 L code = 698) PH, BLOOD (BEAKER) (test code = 7.42 1810) [id number] 05:37:00 Test Item Value Reference Range Interpretation Comments PHOSPHORUS (BEAKER) (test code = 3.5 mg/dL 2.3-4.7 604) [id number] 05:37:00 Test Item Value Reference Range Interpretation Comments MAGNESIUM (BEAKER) (test code = 1.6 mg/dL 1.6-2.6 627) BASIC METABOLIC [id number] 05:37:00 Test Item Value Reference Range Interpretation [...] PATIEN TS. CBC W/PLT COUNT & AUTO [id number] 05:07:00 Test Item Value Reference Range Interpretation [...] NEUTROPHILS ABSOLUTE COUNT 5.67 K/ L 1.56-6.13 ([facility]) (test code = 670) LYMPHOCYTES ABSOLUTE COUNT 2.72 K/ L 1.18-3.74 (AKER) (test code = 414) MONOCYTES ABSOLUTE COUNT (AKER) 0.48 K/ L 0.24-0.36 H (test code = 415) EOSINOPHILS ABSOLUTE COUNT 0.26 K/ L 0.04-0.36 (AKER) (test code = 416) BASOPHILS ABSOLUTE COUNT (AKER) 0.04 K/ L 0.01-0.08 (test code = 417) IMMATURE GRANULOCYTES-RELATIVE 1 % 0-1 PERCENT ([facility]) (test code = 2801) POCT-GLUCOSE [id number] 21:24:00 Test Item Value Reference Range Interpretation Comments POC-GLUCOSE METER 255 mg/dL 70-110 H TESTED AT [place] [address] ([facility]) (test code = JULIANO Osborne [facility] 1538) [address] POCT-GLUCOSE [id number] 17:11:00 Test Item Value Reference Range Interpretation Comments POC-GLUCOSE METER 244 mg/dL 70-110 H TESTED AT [place] [address] ([facility]) (test code = JULIANO Osborne [facility] 1538) [address] POCT-GLUCOSE [id number] 11:54:00 Test Item Value Reference Range Interpretation Comments POC-GLUCOSE METER 209 mg/dL 70-110 H TESTED AT [place] [address] ([facility]) (test code = JULIANO Osborne [facility] 1538) [address] POCT-GLUCOSE [id number] 08:15:00 Test Item Value Reference Range Interpretation Comments POC-GLUCOSE METER 132 mg/dL 70-110 H TESTED AT [place] [address] ([facility]) (test code = JULIANO Osborne [facility] 1538) [address] RAD, CHEST, 1 VIEW, NON [id number] 07:44:00Reason for exam:->edemaShould this be performed at [...] Location: [facility] Radiology Reading Room [id number] 05:30:00 Test Item Value Reference Range Interpretation Comments FERRITIN (BEAKER) (test code = 361) 87 ng/mL 5-275 CBC W/PLT COUNT & AUTO [id number] 05:21:00 Test Item Value Reference Range Interpretation [...] % 20-55 L (test code = 2590) [id number] 05:11:00 Test Item Value Reference Range Interpretation Comments PHOSPHORUS (BEAKER) (test code = 3.6 mg/dL 2.3-4.7 604) [id number] 05:11:00 Test Item Value Reference Range Interpretation Comments MAGNESIUM (BEAKER) (test code = 2.0 mg/dL 1.6-2.6 627) BASIC METABOLIC [id number] 05:11:00 Test Item Value Reference Range Interpretation [...] H (BEAKER) (test code = 700) CALCIUM, [id number] 04:58:00 Test Item Value Reference Range Interpretation Comments CALCIUM IONIZED (BEAKER) (test 1.04 mmol/L 1.12-1.27 L code = 698) PH, BLOOD (BEAKER) (test code = 7.41 1810) RETICULOCYTE [id number] 04:51:00 Test Item Value Reference Range Interpretation Comments RETICULOCYTE COUNT PCT (BEAKER) (test 1.2 % 0.5-1.7 code = 575) POCT-GLUCOSE [id number] 20:49:00 Test Item Value Reference Range Interpretation Comments POC-GLUCOSE METER 202 mg/dL 70-[address] [facility] 6720 (BEAKER) (test code = JULIANO RUTH [place] 1538) [address] CREATININE, RANDOM [id number] 18:38:00 Test Item Value Reference Range Interpretation Comments CREATININE URINE (BEAKER) (test 56.3 mg/dL code = 375) Reference Range: No NormalsPROTEIN, RANDOM [id number] 18:38:00 Test Item Value Reference Range Interpretation Comments PROTEIN, URINE (BEAKER) (test code 189 mg/dL 0-14 H = 1569) URINALYSIS W/ [id number] 18:34:00 Test Item Value Reference Range Interpretation [...] 516) SOURCE(BEAKER) (test code = Urine, Voided 0430) POCT-GLUCOSE [id number] 17:38:00 Test Item Value Reference Range Interpretation Comments POC-GLUCOSE METER 143 mg/dL 70-110 H TESTED AT [place] [address] (BEAKER) (test code = [facility] 1538) [address] POCT-GLUCOSE [id number] 12:30:00 Test Item Value Reference Range Interpretation Comments POC-GLUCOSE METER 218 mg/dL 70-110 H TESTED AT [place] [address] (BEAKER) (test code = [facility] 1538) [address] POCT-GLUCOSE [id number] 08:00:00 Test Item Value Reference Range Interpretation Comments POC-GLUCOSE METER 134 mg/dL 70-110 H TESTED AT [place] [address] (BEAKER) (test code = [facility] 1538) [address] CBC W/PLT COUNT & AUTO [id number] 04:23:00 Test Item Value Reference Range Interpretation [...] (BEAKER) (test code = 2801) BASIC METABOLIC [id number] 04:13:00 Test Item Value Reference Range Interpretation [...] S NOT APPLICABLE FOR DIALYSIS PATIEN TS. [id number] 04:10:00 Test Item Value Reference Range Interpretation Comments PHOSPHORUS (BEAKER) (test code = 4.9 mg/dL 2.3-4.7 H 604) [id number] 04:10:00 Test Item Value Reference Range Interpretation Comments MAGNESIUM (BEAKER) (test code = 1.4 mg/dL 1.6-2.6 L 627) [id number] 04:08:00 Test Item Value Reference Range Interpretation Comments FIBRINOGEN LEVEL (BEAKER) (test 548 mg/dl 225-434 H code = 658) [id number] 04:08:00 Test Item Value Reference Range Interpretation Comments PARTIAL THROMBOPLASTIN TIME 37.7 seconds 22.5-36.0 H (BEAKER) (test code = 760) PROTHROMBIN [id number] 04:07:00 Test Item Value Reference Range Interpretation Comments PROTIME (BEAKER) (test code = 16.2 seconds 11.7-14.7 H 759) INR (BEAKER) (test code = 370) 1.3 <=5.9 RECOMMENDED COUMADIN/WARFARIN INR THERAPY RANGESSTANDARD DOSE: 2.0 - 3.0 Includes: PROPHYLAXIS forvenous thrombosis, systemic embolization; TREATMENT for venous thrombosis and/or pulmonary embolus.HIGH RISK: Target INR is 2.5-3.5 for patients with mechanical heart valves.[id number] 16:59:00 Test Item Value Reference Range Interpretation Comments ACTIVATED CLOTTING TIME 219 sec TEST ED AT [place] [address] (BEAKER) (test code = JULIANO RUTH [place] 441) [address] BASIC METABOLIC [id number] 14:25:00 Test Item Value Reference Range Interpretation [...] NOT APPLICABLE FOR DIALYSIS PATIEN TS. POCT-GLUCOSE [id number] 13:21:00 Test Item Value Reference Range Interpretation Comments POC-GLUCOSE METER 170 mg/dL 70-110 H TESTED AT [place] [address] [facility] (test code = JULIANO RUTH [place] 1538) [address] POTASSIUM-STAT [id number] 13:20:00 Test Item Value Reference Range Interpretation Comments POTASSIUM (BEAKER) (test code = 4.2 meq/L 3.6-5.5 379) SODIUM NA-STAT [id number] 13:20:00 Test Item Value Reference Range Interpretation Comments SODIUM (BEAKER) (test code = 381) 133 meq/L 135-148 L HGB/HCT (H&H) - STAT [id number] 12:34:00 Test Item Value Reference Range Interpretation Comments HEMOGLOBIN (BEAKER) (test code = 10.8 g/dL 12.0-15.0 L 410) HEMATOCRIT (BEAKER) (test code = 32.0 % 36.0-45.0 L 411) POTASSIUM-STAT [id number] 08:15:00 Test Item Value Reference Range Interpretation Comments POTASSIUM (BEAKER) (test code = 4.1 meq/L 3.6-5.5 379) BLOOD GAS, [id number] 08:15:00 Test Item Value Reference Range Interpretation [...] code = 1819) 70.0 % SODIUM NA-STAT [id number] 08:15:00 Test Item Value Reference Range Interpretation Comments SODIUM (BEAKER) (test code = 381) 130 meq/L 135-148 L GLUCOSE-STAT [id number] 08:15:00 Test Item Value Reference Range Interpretation Comments GLUCOSE RANDOM (BEAKER) (test code 172 mg/dL 70-110 H = 652) HGB/HCT (H&H) - STAT [id number] 08:15:00 Test Item Value Reference Range Interpretation Comments HEMOGLOBIN (BEAKER) (test code = 8.8 g/dL 12.0-15.0 L 410) HEMATOCRIT (BEAKER) (test code = 26.0 % 36.0-45.0 L 411) BASIC METABOLIC [id number] 07:37:00 Test Item Value Reference Range Interpretation [...] PATIEN TS. CBC W/PLT COUNT & AUTO [id number] 07:20:00 Test Item Value Reference Range Interpretation [...] PERCENT (BEAKER) (test code = 2801) POCT-GLUCOSE [id number] 07:03:00 Test Item Value Reference Range Interpretation Comments POC-GLUCOSE METER 186 mg/dL 70-[address] [facility] 6720 (BEAKER) (test code = JULIANO Osborne [facility] 1538) [address] B-TYPE NATRIURETIC FACTOR (BNP)2017-06-10 12:44:00 Test Item Value Reference Range Interpretation Comments B-TYPE NATRIURETIC PEPTIDE 1264 pg/mL 0-100 H (BEAKER) (test code = 700) [id number] 12:36:00 Test Item Value Reference Range Interpretation Comments MAGNESIUM (BEAKER) (test code = 1.6 mg/dL 1.6-2.6 627) BASIC METABOLIC [id number] 12:36:00 Test Item Value Reference Range Interpretation [...] NOT APPLICABLE FOR DIALYSIS PATIEN TS. POCT-GLUCOSE [id number] 12:04:00 Test Item Value Reference Range Interpretation Comments POC-GLUCOSE METER 274 mg/dL 70-[address] [facility] 6720 (BEAKER) ([facility] = [facility] 1538) [address] POCT-GLUCOSE [id number] 07:21:00 Test Item Value Reference Range Interpretation Comments POC-GLUCOSE METER 137 mg/dL 70-[address] [facility] 6720 (BEAKER) (test code = [facility] [facility] 1538) [address] BASIC METABOLIC [id number] 05:10:00 Test Item Value Reference Range Interpretation [...] 0-0 (BEAKER) (test code = 413) POCT-GLUCOSE [id number] 21:23:00 Test Item Value Reference Range Interpretation Comments POC-GLUCOSE METER 240 mg/dL 70-110 H TESTED AT [place] [address] ([facility]) (test code = JULIANO Osborne [facility] 1538) [address] POCT-GLUCOSE [id number] 16:42:00 Test Item Value Reference Range Interpretation Comments POC-GLUCOSE METER 234 mg/dL 70-110 H TESTED AT [place] [address] ([facility]) (test code = JULIANO Osborne [facility] 1538) [address] POCT-GLUCOSE [id number] 13:22:00 Test Item Value Reference Range Interpretation Comments POC-GLUCOSE METER 166 mg/dL 70-110 H TESTED AT [place] [address] ([facility]) (test code = JULIANO Osborne [facility] 1538) [address] RAD, CHEST, 1 VIEW, NON [id number] 09:43:00Reason for exam:->s/p ACBShould this be performed [...] Ring MDReport Verified Date/Time: 05/31/2017 09:43:30 ReadingLocation: [facility] B1 [id number] Ortho Consult Reading Room POCT-GLUCOSE [id number] 06:57:00 Test Item Value Reference Range Interpretation Comments POC-GLUCOSE METER 136 mg/dL 70-[address] [facility] 6720 (BEAKER) (test code = JULIANO Osborne [facility] 1538) [address] CALCIUM, [id number] 06:41:00 Test Item Value Reference Range Interpretation Comments CALCIUM IONIZED (BEAKER) (test 1.10 mmol/L 1.12-1.27 L code = 698) PH, BLOOD (BEAKER) (test code = 7.42 1810) [id number] 06:17:00 Test Item Value Reference Range Interpretation Comments PHOSPHORUS (BEAKER) (test code = 3.3 mg/dL 2.3-4.7 604) [id number] 06:17:00 Test Item Value Reference Range Interpretation Comments MAGNESIUM (BEAKER) (test code = 1.8 mg/dL 1.6-2.6 627) BASIC METABOLIC [id number] 06:17:00 Test Item Value Reference Range Interpretation [...] PATIEN TS. CBC W/PLT COUNT & AUTO [id number] 05:07:00 Test Item Value Reference Range Interpretation [...] NEUTROPHILS ABSOLUTE COUNT 3.84 K/ L 1.56-6.13 ([facility]) (test code = 670) LYMPHOCYTES ABSOLUTE COUNT 1.41 K/ L 1.18-3.74 (AKER) (test code = 414) MONOCYTES ABSOLUTE COUNT (BEAKER) 0.47 K/ L 0.24-0.36 H (test code = 415) EOSINOPHILS ABSOLUTE COUNT 0.11 K/ L 0.04-0.36 ([facility]) (test code = 416) BASOPHILS ABSOLUTE COUNT (AKER) 0.05 K/ L 0.01-0.08 (test code = 417) IMMATURE GRANULOCYTES-RELATIVE 1 % 0-1 PERCENT ([facility]) (test code = 2801) POCT-GLUCOSE [id number] 20:56:00 Test Item Value Reference Range Interpretation Comments POC-GLUCOSE METER 196 mg/dL 70-110 H TESTED AT [place] [address] ([facility]) (test [facility] = [facility] 1538) [address] POCT-GLUCOSE [id number] 16:42:00 Test Item Value Reference Range Interpretation Comments POC-GLUCOSE METER 196 mg/dL 70-110 H TESTED AT [place] [address] ([facility]) (test code = [facility] [facility] 1538) [address] POCT-GLUCOSE [id number] 11:45:00 Test Item Value Reference Range Interpretation Comments POC-GLUCOSE METER 215 mg/dL 70-110 H TESTED AT [place] [address] ([facility]) (test code = [facility] [place] [facility] 1538) [address] RAD, CHEST, 1 VIEW, NON [id number] 11:15:00Reason for exam:->s/p ACBShould this be performed at the bedside?->YesFINAL REPORT Chest one view compared to May 28, 2017 Discussion: Airspace opacities are seen in both lower lung regions, probably atelectasis. Correlate clinically for infection. I could not exclude small effusions. No pneumothorax. Upper lungs clear. Signed: Jeannette Nava Verified Date/Time: 05/30/2017 11:15:07 Reading Location: [facility] Radiology Reading Room CALCIUM, [id number] 09:21:00 Test Item Value Reference Range Interpretation Comments CALCIUM IONIZED (BEAKER) (test 1.11 mmol/L 1.12-1.27 L code = 698) PH, BLOOD (BEAKER) (test code = 7.36 1810) BASIC METABOLIC [id number] 07:37:00 Test Item Value Reference Range Interpretation [...] S NOT APPLICABLE FOR DIALYSIS PATIEN TS. [id number] 07:28:00 Test Item Value Reference Range Interpretation Comments PHOSPHORUS (BEAKER) (test code = 3.8 mg/dL 2.3-4.7 604) [id number] 07:28:00 Test Item Value Reference Range Interpretation Comments MAGNESIUM (BEAKER) (test code = 1.9 mg/dL 1.6-2.6 627) CBC W/PLT COUNT & AUTO [id number] 07:26:00 Test Item Value Reference Range Interpretation [...] PERCENT (BEAKER) (test code = 2801) POCT-GLUCOSE [id number] 07:21:00 Test Item Value Reference Range Interpretation Comments POC-GLUCOSE METER 146 mg/dL 70-[address] [facility] 6720 (BEAKER) (test code = JULIANO RUTH [place] 1538) [address] POCT-GLUCOSE [id number] 22:02:00 Test Item Value Reference Range Interpretation Comments POC-GLUCOSE METER 201 mg/dL 70-110 H TESTED AT [place] [address] ([facility]) (test code = [facility] 1538) [address] POCT-GLUCOSE [id number] 18:27:00 Test Item Value Reference Range Interpretation Comments POC-GLUCOSE METER 240 mg/dL 70-110 H TESTED AT [place] [address] ([facility]) (test code = [facility] 1538) [address] POCT-GLUCOSE [id number] 12:13:00 Test Item Value Reference Range Interpretation Comments POC-GLUCOSE METER 193 mg/dL 70-110 H TESTED AT [place] [address] ([facility]) (test code = [facility] 1538) [address] POCT-GLUCOSE [id number] 09:02:00 Test Item Value Reference Range Interpretation Comments POC-GLUCOSE METER 132 mg/dL 70-110 H TESTED AT [place] [address] ([facility]) (test code = [facility] 1538) [address] CALCIUM, [id number] 05:42:00 Test Item Value Reference Range Interpretation Comments CALCIUM IONIZED (BEAKER) (test 1.12 mmol/L 1.12-1.27 code = 698) PH, BLOOD (BEAKER) (test code = 7.34 1810) COMPREHENSIVE METABOLIC [id number] 05:33:00 Test Item Value Reference Range Interpretation [...] S NOT APPLICABLE FOR DIALYSIS PATIEN TS. [id number] 05:32:00 Test Item Value Reference Range Interpretation Comments PHOSPHORUS (BEAKER) (test code = 3.6 mg/dL 2.3-4.7 604) [id number] 05:32:00 Test Item Value Reference Range Interpretation Comments MAGNESIUM (BEAKER) (test code = 2.2 mg/dL 1.6-2.6 627) CBC W/PLT COUNT & AUTO [id number] 05:01:00 Test Item Value Reference Range Interpretation [...] PERCENT (BEAKER) (test code = 2807) POCT-GLUCOSE [id number] 21:04:00 Test Item Value Reference Range Interpretation Comments POC-GLUCOSE METER 165 mg/dL 70-[address] [facility] 6720 ([facility]) (test code = JULIANO Osborne [facility] 1538) [address] POCT-GLUCOSE [id number] 17:30:00 Test Item Value Reference Range Interpretation Comments POC-GLUCOSE METER 236 mg/dL 70-[address] [facility] 6720 ([facility]) (test code = [facility] 1538) [address] RAD, CHEST, 1 VIEW, NON [id number] 13:53:00Reason for exam:->assess for ill-defined opacityShould this [...] Verified Date/Time: 05/28/2017 13:53:03 Reading Location: [address] Radiology Reading Room POCT-GLUCOSE [id number] 11:53:00 Test Item Value Reference Range Interpretation Comments POC-GLUCOSE METER 215 mg/dL 70-110 H TESTED AT [place] [address] (BEAKER) (test code = JULIANO Osborne [facility] 1538) [address] POCT-GLUCOSE [id number] 08:32:00 Test Item Value Reference Range Interpretation Comments POC-GLUCOSE METER 168 mg/dL 70-110 H TESTED AT [place] [address] (BEAKER) (test code = [facility] [place] [facility] 1538) [address] CALCIUM, [id number] 05:44:00 Test Item Value Reference Range Interpretation Comments CALCIUM IONIZED (BEAKER) (test 1.09 mmol/L 1.12-1.27 L code = 698) PH, BLOOD (BEAKER) (test code = 7.38 1810) [id number] 05:44:00 Test Item Value Reference Range Interpretation Comments PHOSPHORUS (BEAKER) (test code = 3.5 mg/dL 2.3-4.7 604) [id number] 05:44:00 Test Item Value Reference Range Interpretation Comments MAGNESIUM (BEAKER) (test code = 1.9 mg/dL 1.6-2.6 627) BASIC METABOLIC [id number] 05:44:00 Test Item Value Reference Range Interpretation [...] PATIEN TS. CBC W/PLT COUNT & AUTO [id number] 05:05:00 Test Item Value Reference Range Interpretation [...] PERCENT (BEAKER) (test code = 2801) POCT-GLUCOSE [id number] 21:03:00 Test Item Value Reference Range Interpretation Comments POC-GLUCOSE METER 173 mg/dL 70-110 H TESTED AT [place] [address] ([facility]) (test code = [facility] [place] [facility] 1538) [address] [id number] 18:15:00 Test Item Value Reference Range Interpretation Comments ACTIVATED CLOTTING TIME 147 sec TEST ED AT [place] [address] ([facility]) (test code = [facility] [place] [facility] 441) [address] [id number] 18:15:00 Test Item Value Reference Range Interpretation Comments ACTIVATED CLOTTING TIME 246 sec TEST ED AT [place] [address] ([facility]) (test code = [facility] 441) [address] POCT-GLUCOSE [id number] 12:39:00 Test Item Value Reference Range Interpretation Comments POC-GLUCOSE METER 219 mg/dL 70-110 H TESTED AT [place] [address] ([facility]) (test code = [facility] 1538) [address] RAD, CHEST, 1 VIEW, NON [id number] 10:11:00Reason for exam:->pl effusionShould this be performed at the bedside?->YesFINAL REPORT Chest one view compared to May 26 Discussion: There is cardiac prominence. Upper lungs are clear. Ill-defined basilar densities are similar probably atelectasis. No gross effusion or pneumothorax with bilateral chest tubes in place. Signed: Jeannette Navaeport Verified Date/Time: 05/27/2017 10:11:44 Reading Location: [facility] POCT-GLUCOSE METER 2017-05-27 07:05:00 Test Item Value Reference Range Interpretation Comments POC-GLUCOSE METER 167 mg/dL 70-[address] [facility] 6720 (BEAKER) (test code = JULIANO RUTH [place] 1538) [id number] CALCIUM, [id number] 06:20:00 Test Item Value Reference Range Interpretation Comments CALCIUM IONIZED (BEAKER) (test 0.98 mmol/L 1.12-1.27 L code = 698) PH, BLOOD (BEAKER) (test code = 7.50 1810) [id number] 04:56:00 Test Item Value Reference Range Interpretation Comments PHOSPHORUS (BEAKER) (test code = 2.6 mg/dL 2.3-4.7 604) [id number] 04:56:00 Test Item Value Reference Range Interpretation Comments MAGNESIUM (BEAKER) (test code = 2.0 mg/dL 1.6-2.6 627) BASIC METABOLIC [id number] 04:56:00 Test Item Value Reference Range Interpretation [...] PATIEN TS. CBC W/PLT COUNT & AUTO [id number] 04:36:00 Test Item Value Reference Range Interpretation [...] EOSINOPHILS ABSOLUTE COUNT 0.22 K/ L 0.04-0.36 (AKER) (test code = 416) BASOPHILS ABSOLUTE COUNT ([facility]) 0.05 K/ L 0.01-0.08 (test code = 417) IMMATURE GRANULOCYTES-RELATIVE 1 % 0-1 PERCENT ([facility]) (test code = 2801) POCT-GLUCOSE [id number] 21:29:00 Test Item Value Reference Range Interpretation Comments POC-GLUCOSE METER 147 mg/dL 70-110 H TESTED AT [place] [address] ([facility]) (test code = [facility] 1538) [id number] POCT-GLUCOSE [id number] 17:51:00 Test Item Value Reference Range Interpretation Comments POC-GLUCOSE METER 224 mg/dL 70-110 H TESTED AT [place] [address] ([facility]) (test code = [facility] 1538) [address] POCT-GLUCOSE [id number] 13:53:00 Test Item Value Reference Range Interpretation Comments POC-GLUCOSE METER 182 mg/dL 70-110 H TESTED AT [place] [address] ([facility] CENTER) (test code = [facility] [place] [facility] 1538) [address] RAD, CHEST, 1 VIEW, NON [id number] 08:44:00Reason for exam:->pl effusionShould this be performed [...] Ortega Verified Date/Time: 05/26/2017 08:44:25 Reading Location: [address] Radiology Reading Room POCT- GLUCOSE [id number] 07:43:00 Test Item Value Reference Range Interpretation Comments POC-GLUCOSE METER 113 mg/dL 70-[address] [facility] 6720 (BEAKER) (test code = J[place]IANO [place] 1533) [address] CALCIUM, [id number] 06:31:00 Test Item Value Reference Range Interpretation Comments CALCIUM IONIZED (BEAKER) (test 1.07 mmol/L 1.12-1.27 L code = 698) PH, BLOOD (BEAKER) (test code = 7.38 1810) [id number] 04:51:00 Test Item Value Reference Range Interpretation Comments PHOSPHORUS (BEAKER) (test code = 3.2 mg/dL 2.3-4.7 604) [id number] 04:51:00 Test Item Value Reference Range Interpretation Comments MAGNESIUM (BEAKER) (test code = 2.1 mg/dL 1.6-2.6 627) BASIC METABOLIC [id number] 04:51:00 Test Item Value Reference Range Interpretation [...] PATIEN TS. CBC W/PLT COUNT & AUTO [id number] 04:27:00 Test Item Value Reference Range Interpretation [...] PERCENT (BEAKER) (test code = 2801) POCT-GLUCOSE [id number] 23:48:00 Test Item Value Reference Range Interpretation Comments POC-GLUCOSE METER 123 mg/dL 70-[address] [facility] 6720 (BEAKER) (test code = JULIANO Osborne [place] 1538) [address] POCT-GLUCOSE [id number] 16:46:00 Test Item Value Reference Range Interpretation Comments POC-GLUCOSE METER 178 mg/dL 70-[address] [facility] 6720 (BEAKER) (test code = JULIANO Osborne [place] 1538) [address] BASIC METABOLIC [id number] 05:53:00 Test Item Value Reference Range Interpretation [...] S NOT APPLICABLE FOR DIALYSIS PATIEN TS. [id number] 05:52:00 Test Item Value Reference Range Interpretation Comments PHOSPHORUS (BEAKER) (test code = 4.2 mg/dL 2.3-4.7 604) [id number] 05:52:00 Test Item Value Reference Range Interpretation Comments MAGNESIUM (BEAKER) (test code = 2.3 mg/dL 1.6-2.6 627) CALCIUM, [id number] 05:27:00 Test Item Value Reference Range Interpretation Comments CALCIUM IONIZED (BEAKER) (test 1.12 mmol/L 1.12-1.27 code = 698) PH, BLOOD (BEAKER) (test code = 7.38 1810) CBC W/PLT COUNT & AUTO [id number] 05:07:00 Test Item Value Reference Range Interpretation [...] 417) IMMATURE GRANULOCYTES-RELATIVE 1 % 0-1 PERCENT ([facility]) (test code = 2801) RAD, CHEST, 1 VIEW, NON [id number] 04:45:00Reason for exam:->pl effusionShould this be performed at the bedside?->YesFINAL REPORT RAD, CHEST, 1 VIEW, NON DEPT INDICATION: pl effusion COMPARISON:Prior day's exam FINDINGS: Portable frontal view of the chest. IMPRESSION: Support Lines: Stable.Lungs and pleura: Unchanged airspace and pleural opacities. No pneumothorax.Heart and mediastinum: Stable contours. Stable surgical changes.Additional findings: None. Signed: JR Boswell Robert MDReport Verified Date/Time: 05/25/2017 04:45:08 Reading Location: [facility] C013Y CT Body Reading Room POCT-GLUCOSE [id number] 01:52:00 Test Item Value Reference Range Interpretation Comments POC-GLUCOSE METER 126 mg/dL 70-110 H TESTED AT [place] [address] ([facility]) (test code = JULIANO Osborne [facility] 1538) [address] POCT-GLUCOSE [id number] 13:07:00 Test Item Value Reference Range Interpretation Comments POC-GLUCOSE METER 118 mg/dL 70-110 H TESTED AT [place] [address] ([facility]) (test code = JULIANO Osborne [facility] 1538) [address] BRONCHIAL CULTURE + GRAM [id number] 11:35:00 Test Item Value Reference Range Interpretation Comments CULTURE ([facility]) (test code = 1095) [...] <1+ gram (BEAKER) (test code = positive 050781) cocci in pairs GRAM STAIN RESULT 1+ gram (BEAKER) (test code = variable rods 745694) 1+ Normal respiratory todd presentRAD, CHEST, 1 VIEW, NON [id number] 06:50:00Reason for exam:->pl effusionShould this be performed at the bedside?->YesFINAL REPORT RAD, CHEST, 1 VIEW, NON DEPT INDICATION: pl effusion COMPARISON:Prior day's exam FINDINGS: Portable frontal view of the chest. IMPRESSION: Support Lines: Stable.Lungs and pleura: Unchanged airspace and pleural opacities. No pneumothorax.Heart and mediastinum: Stable contours. Stable surgical changes.Additional findings: None. Signed: JR Boswell Robert MDReport Verified Date/Time: 05/24/2017 06:50:08 Reading Location: [facility] B1 C013Y CT Body Reading Room BASIC METABOLIC [id number] 04:19:00 Test Item Value Reference Range Interpretation [...] NOT APPLICABLE FOR DIALYSIS PATIEN TS. CALCIUM, [id number] 04:16:00 Test Item Value Reference Range Interpretation Comments CALCIUM IONIZED (BEAKER) (test 1.06 mmol/L 1.12-1.27 L code = 698) PH, BLOOD (BEAKER) (test code = 7.40 1810) [id number] 04:11:00 Test Item Value Reference Range Interpretation Comments PHOSPHORUS (BEAKER) (test code = 6.0 mg/dL 2.3-4.7 H 604) [id number] 04:11:00 Test Item Value Reference Range Interpretation Comments MAGNESIUM (BEAKER) (test code = 2.4 mg/dL 1.6-2.6 627) CBC W/PLT COUNT & AUTO [id number] 03:50:00 Test Item Value Reference Range Interpretation [...] PERCENT (BEAKER) (test code = 2801) POCT-GLUCOSE [id number] 20:45:00 Test Item Value Reference Range Interpretation Comments POC-GLUCOSE METER 143 mg/dL 70-[address] [facility] 6720 ([facility]) (test code = [place]IANO [place] 1538) [address] POCT-GLUCOSE [id number] 20:45:00 Test Item Value Reference Range Interpretation Comments POC-GLUCOSE METER 145 mg/dL 70-[address] [facility] 6720 ([facility]) (test code = [place]ULIANO [place] 1538) [address] [id number] 13:37:00 Test Item Value Reference Range Interpretation Comments PREALBUMIN (BEAKER) 10 mg/dL 14-45 L Specimen slightly (test code = 586) hemolyzed OXYGEN SATURATION, [id number] 12:31:00 Test Item Value Reference Range Interpretation Comments O2 SATURATION (MEASURED) (BEAKER) 94.5 % (test code = 1455) [id number] 11:02:00 Test Item Value Reference Range Interpretation Comments PREALBUMIN (BEAKER) (test code = 10 mg/dL 14-45 L 586) RAD, CHEST, 1 VIEW, NON [id number] 05:14:00while patient is intubated or has chest [...] changes.Additional findings: None. Signed: JR Elbert, Kelly [facility]REthe [facility] Verified Date/Time: 05/23/2017 05:14:04 Reading Location: [address] Body Reading Room BASIC METABOLIC [id number] 03:48:00 Test Item Value Reference Range Interpretation [...] S NOT APPLICABLE FOR DIALYSIS PATIEN TS. [id number] 03:46:00 Test Item Value Reference Range Interpretation Comments MAGNESIUM (BEAKER) 2.4 mg/dL 1.6-2.6 Specimen slightly (test code = 627) hemolyzed [id number] 03:46:00 Test Item Value Reference Range Interpretation Comments PHOSPHORUS (BEAKER) 6.5 mg/dL 2.3-4.7 H Specimen slightly (test code = 604) hemolyzed CBC W/PLT COUNT & AUTO [id number] 03:26:00 Test Item Value Reference Range Interpretation [...] (BEAKER) (test code = 2801) BLOOD GAS, [id number] 03:18:00 Test Item Value Reference Range Interpretation [...] (test code = 1819) 36.0 % CALCIUM, [id number] 16:32:00 Test Item Value Reference Range Interpretation Comments CALCIUM IONIZED (BEAKER) (test 1.11 mmol/L 1.12-1.27 L code = 698) PH, BLOOD (BEAKER) (test code = 7.39 1810) BASIC METABOLIC [id number] 15:43:00 Test Item Value Reference Range Interpretation [...] NOT APPLICABLE FOR DIALYSIS PATIEN TS. POCT-GLUCOSE [id number] 12:53:00 Test Item Value Reference Range Interpretation Comments POC-GLUCOSE METER 118 mg/dL 70-110 H TESTED AT [place] [address] ([facility]) ([facility] = [facility] [address] BLOOD GAS, [id number] 10:42:00 Test Item Value Reference Range Interpretation [...] (test code = 1819) 40.0 % POCT-GLUCOSE [id number] 06:46:00 Test Item Value Reference Range Interpretation Comments POC-GLUCOSE METER 106 mg/dL 70-[address] [facility] [place] ([facility]) (test [facility] = [facility] 1538) [address] RAD, CHEST, 1 VIEW, NON [id number] 05:05:00while patient is intubated or has chest [...] MDRepemily Verified Date/Time: 05/22/2017 05:05:00 Reading Location: [address] Body ReadingRoom BASIC METABOLIC [id number] 05:00:00 Test Item Value Reference Range Interpretation [...] S NOT APPLICABLE FOR DIALYSIS PATIEN TS. [id number] 04:41:00 Test Item Value Reference Range Interpretation Comments PHOSPHORUS (BEAKER) (test code = 6.4 mg/dL 2.3-4.7 H 604) [id number] 04:41:00 Test Item Value Reference Range Interpretation Comments MAGNESIUM (BEAKER) (test code = 2.6 mg/dL 1.6-2.6 627) CALCIUM, [id number] 04:26:00 Test Item Value Reference Range Interpretation Comments CALCIUM IONIZED (BEAKER) (test 1.09 mmol/L 1.12-1.27 L code = 698) PH, BLOOD (BEAKER) (test code = 7.40 1810) OXYGEN SATURATION, [id number] 04:25:00 Test Item Value Reference Range Interpretation Comments O2 SATURATION (MEASURED) (BEAKER) 77.0 % (test code = 1455) CBC W/PLT COUNT & AUTO [id number] 04:17:00 Test Item Value Reference Range Interpretation [...] code = 2801) LACTIC ACID, ARTERIAL, WHOLE [id number] 00:07:00 Test Item Value Reference Range Interpretation Comments LACTATE BLOOD 1.0 mmol/L 0.5-2.2 Specimen sligh tly ARTERIAL (2) (BEAKER) hemoly zed (test code = 2874) Effective 08/02/2015: Units/Reference Range ChangeNew: 0.5-2.2 mmol/L Previous: 5-20 mg/dLPOCT-GLUCOSE [id number] 23:47:00 Test Item Value Reference Range Interpretation Comments POC-GLUCOSE METER 180 mg/dL 70-[address] [facility] 6720 (BEAKER) (test code = JULIANO [place] [facility]8) [address] BLOOD GAS, [id number] 23:46:00 Test Item Value Reference Range Interpretation [...] code = 1819) 100.0 % SODIUM NA-STAT [id number] 23:46:00 Test Item Value Reference Range Interpretation Comments SODIUM (BEAKER) (test code = 381) 134 meq/L 135-148 L GLUCOSE-STAT [id number] 23:46:00 Test Item Value Reference Range Interpretation Comments GLUCOSE RANDOM (BEAKER) (test code 119 mg/dL 70-110 H = 652) HGB/HCT (H&H) - STAT [id number] 23:46:00 Test Item Value Reference Range Interpretation Comments HEMOGLOBIN (BEAKER) (test code = 8.8 g/dL 12.0-15.0 L 410) HEMATOCRIT (BEAKER) (test code = 26.0 % 36.0-45.0 L 411) OXYGEN SATURATION, [id number] 23:45:00 Test Item Value Reference Range Interpretation Comments O2 SATURATION (MEASURED) (BEAKER) 68.1 % (test code = 1455) POTASSIUM-STAT [id number] 23:45:00 Test Item Value Reference Range Interpretation Comments POTASSIUM (BEAKER) (test code = 5.5 meq/L 3.6-5.5 379) POCT-GLUCOSE [id number] 20:58:00 Test Item Value Reference Range Interpretation Comments POC-GLUCOSE METER 133 mg/dL 70-110 H TESTED AT [place] [address] ([facility]) (test code = [place]IANO [place] 1538) [address] POCT-GLUCOSE [id number] 17:58:00 Test Item Value Reference Range Interpretation Comments POC-GLUCOSE METER 210 mg/dL 70-110 H TESTED AT [place] [address] ([facility]) (test code = [place]ULIANO [place] 1538) [address] POCT-GLUCOSE [id number] 17:58:00 Test Item Value Reference Range Interpretation Comments POC-GLUCOSE METER 211 mg/dL 70-[address] [facility] 6720 (BEAKER) (test code = JULIANO [place] 1538) [address] POCT-GLUCOSE [id number] 17:58:00 Test Item Value Reference Range Interpretation Comments POC-GLUCOSE METER 232 mg/dL 70-110 H TESTED AT [place] [address] (BEAKER) (test code = JULIANO Osborne [place] 1538) [address] POCT-GLUCOSE [id number] 17:58:00 Test Item Value Reference Range Interpretation Comments POC-GLUCOSE METER 262 mg/dL 70-110 H TESTED AT [place] [address] (BEAKER) (test code = JULIANO Osborne [place] 1538) [address] BLOOD GAS, [id number] 17:01:00 Test Item Value Reference Range Interpretation [...] (test code = 1819) 60.0 % POTASSIUM-STAT [id number] 17:00:00 Test Item Value Reference Range Interpretation Comments POTASSIUM (BEAKER) (test code = 4.8 meq/L 3.6-5.5 379) POCT-GLUCOSE [id number] 15:52:00 Test Item Value Reference Range Interpretation Comments POC-GLUCOSE METER 267 mg/dL 70-110 H TESTED AT [place] [address] (BEAKER) (test code = JULIANO Osborne [place] 1538) [address] POCT-GLUCOSE [id number] 14:42:00 Test Item Value Reference Range Interpretation Comments POC-GLUCOSE METER 231 mg/dL 70-110 H TESTED AT [place] [address] (BEAKER) (test code = JULIANO Osborne [place] 1538) [address] BODY FLUID CELL COUNT WITH [id number] 14:41:00 Test Item Value Reference Range Interpretation [...] FLUID (BEAKER) EDTA Tube (test code = 1653) BASIC METABOLIC [id number] 14:11:00 Test Item Value Reference Range Interpretation [...] S NOT APPLICABLE FOR DIALYSIS PATIEN TS. [id number] 14:08:00 Test Item Value Reference Range Interpretation Comments PHOSPHORUS (BEAKER) (test code = 7.2 mg/dL 2.3-4.7 H 604) [id number] 14:08:00 Test Item Value Reference Range Interpretation Comments MAGNESIUM (BEAKER) (test code = 2.6 mg/dL 1.6-2.6 627) POCT-GLUCOSE [id number] 12:49:00 Test Item Value Reference Range Interpretation Comments POC-GLUCOSE METER 224 mg/dL 70-[address] [facility] 6720 ([facility]) (test code = JULIANO Osborne [place] 1538) [address] POCT-GLUCOSE [id number] 12:49:00 Test Item Value Reference Range Interpretation Comments POC-GLUCOSE METER 248 mg/dL 70-[address] [facility] 6720 ([facility]) (test code = JULIANO Osborne [place] 1538) [address] RAD, CHEST, 1 VIEW, NON [id number] 12:32:00Reason for exam:->re-intubationShould this be performed at [...] pneumothorax is grossly unchanged. Signed: Mona White [facility] Verified Date/Time: 05/21/2017 12:32:08 Reading Location: [facility] Radiology Reading Room POTASSIUM-STAT [id number] 12:28:00 Test Item Value Reference Range Interpretation Comments POTASSIUM (BEAKER) (test code = 5.5 meq/L 3.6-5.5 379) BLOOD GAS, [id number] 12:28:00 Test Item Value Reference Range Interpretation [...] code = 1819) 100.0 % BLOOD GAS, [id number] 10:53:00 Test Item Value Reference Range Interpretation [...] 36.0 % RAD, CHEST, 1 VIEW, NON [id number] 08:46:00while patient is intubated or has chest [...] MDReport Verified Date/Time: 05/21/2017 08:46:27 Reading Location: [facility] Radiology Reading Room BLOOD GAS, [id number] 05:41:00 Test Item Value Reference Range Interpretation [...] (BEAKER) (test code = 1819) 40 CALCIUM, [id number] 04:35:00 Test Item Value Reference Range Interpretation Comments CALCIUM IONIZED (BEAKER) (test 1.13 mmol/L 1.12-1.27 code = 698) PH, BLOOD (BEAKER) (test code = 7.32 1810) BLOOD GAS, [id number] 04:28:00 Test Item Value Reference Range Interpretation [...] (BEAKER) (test code = 1819) 40.0 % [id number] 04:20:00 Test Item Value Reference Range Interpretation Comments PHOSPHORUS (BEAKER) (test code = 6.2 mg/dL 2.3-4.7 H 604) [id number] 04:20:00 Test Item Value Reference Range Interpretation Comments MAGNESIUM (BEAKER) (test code = 2.4 mg/dL 1.6-2.6 627) HEPATIC FUNCTION [id number] 04:20:00 Test Item Value Reference Range Interpretation [...] = 11 U/L 6-55 347) BASIC METABOLIC [id number] 04:20:00 Test Item Value Reference Range Interpretation [...] APPLICABLE FOR DIALYSIS PATIEN TS. OXYGEN SATURATION, [id number] 04:18:00 Test Item Value Reference Range Interpretation Comments O2 SATURATION (MEASURED) (BEAKER) 68.0 % (test code = 1455) LACTIC ACID, ARTERIAL, WHOLE [id number] 04:12:00 Test Item Value Reference Range Interpretation Comments LACTATE BLOOD ARTERIAL (2) 1.0 mmol/L 0.5-2.2 (BEAKER) (test code = 2874) Effective 08/02/2015: Units/Reference Range ChangeNew: 0.5-2.2 mmol/L Previous: 5-20 mg/dLCBC W/PLT COUNT & AUTO [id number] 04:00:00 Test Item Value Reference Range Interpretation [...] (BEAKER) (test code = 2801) BLOOD GAS, [id number] 00:06:00 Test Item Value Reference Range Interpretation [...] (BEAKER) (test code = 1819) 40.0 % [id number] 18:55:00 Test Item Value Reference Range Interpretation Comments PHOSPHORUS (BEAKER) (test code = 4.8 mg/dL 2.3-4.7 H 604) [id number] 18:55:00 Test Item Value Reference Range Interpretation Comments MAGNESIUM (BEAKER) (test code = 2.3 mg/dL 1.6-2.6 627) BASIC METABOLIC [id number] 18:55:00 Test Item Value Reference Range Interpretation [...] DIALYSIS PATIEN TS. LACTIC ACID, ARTERIAL, WHOLE [id number] 18:53:00 Test Item Value Reference Range Interpretation Comments LACTATE BLOOD 0.9 mmol/L 0.5-2.2 Specimen sligh tly ARTERIAL (2) (BEAKER) hemoly zed (test code = 2874) Effective 08/02/2015: Units/Reference Range ChangeNew: 0.5-2.2 mmol/L Previous: 5-20 mg/dLRAD, CHEST, 1 VIEW, NON [id number] 18:44:00Reason for exam:- >postop cardiacShould this be [...] MDReport Verified Date/Time: 05/20/2017 18:44:30 Reading Location: [facility] C013W Consult Reading Room Electronically signed by: MIGUEL BHAKTA M.D. on05/20/2017 06:44 PMCBC W/PLT COUNT & AUTO [id number] 18:38:00 Test Item Value Reference Range Interpretation [...] (BEAKER) (test code = 2801) OXYGEN SATURATION, [id number] 18:36:00 Test Item Value Reference Range Interpretation Comments O2 SATURATION (MEASURED) (BEAKER) 72.5 % (test code = 1455) From distal port of IJ central venous catheterSODIUM NA-STAT [id number] 18:30:00 Test Item Value Reference Range Interpretation Comments SODIUM (BEAKER) (test code = 381) 132 meq/L 135-148 L HGB/HCT (H&H) - STAT [id number] 18:30:00 Test Item Value Reference Range Interpretation Comments HEMOGLOBIN (BEAKER) (test code = 9.4 g/dL 12.0-15.0 L 410) HEMATOCRIT (BEAKER) (test code = 28.0 % 36.0-45.0 L 411) GLUCOSE-STAT [id number] 18:30:00 Test Item Value Reference Range Interpretation Comments GLUCOSE RANDOM (BEAKER) (test code 159 mg/dL 70-110 H = 652) BLOOD GAS, [id number] 18:30:00 Test Item Value Reference Range Interpretation [...] (test code = 1819) 60.0 % CALCIUM, [id number] 18:30:00 Test Item Value Reference Range Interpretation Comments CALCIUM IONIZED (BEAKER) (test 0.94 mmol/L 1.12-1.27 L code = 698) PH, BLOOD (BEAKER) (test code = 7.34 1810) POTASSIUM-STAT [id number] 18:28:00 Test Item Value Reference Range Interpretation [...] (test 0.0 % 0.0-5.0 code = 1414) [id number] 17:53:00 Test Item Value Reference Range Interpretation Comments ACTIVATED CLOTTING TIME 103 sec TEST ED AT [place] [address] ([facility]) (test code = [place] 441) [address] [id number] 17:53:00 Test Item Value Reference Range Interpretation Comments ACTIVATED CLOTTING TIME 466 sec TEST ED AT [place] [address] ([facility]) (test code = [place]O [place] 441) [address] [id number] 17:53:00 Test Item Value Reference Range Interpretation Comments ACTIVATED CLOTTING TIME 543 sec TEST ED AT [place] [address] ([facility]) (test code = [place] 441) [address] [id number] 17:53:00 Test Item Value Reference Range Interpretation Comments ACTIVATED CLOTTING TIME 549 sec TEST ED AT [place] [address] ([facility]) (test code = [place]IANO [place] 441) [address] [id number] 17:53:00 Test Item Value Reference Range Interpretation Comments ACTIVATED CLOTTING TIME 632 sec TEST ED AT [place] [address] ([facility]) (test code = [place] 441) [address] [id number] 17:53:00 Test Item Value Reference Range Interpretation Comments ACTIVATED CLOTTING TIME 494 sec TEST ED AT [place] [address] ([facility]) (test code = JULIANO [place] 441) [address] [id number] 17:53:00 Test Item Value Reference Range Interpretation Comments ACTIVATED CLOTTING TIME 587 sec TEST ED AT [place] [address] ([facility]) (test code = JULIANO Osborne [place] 441) [address] [id number] 17:53:00 Test Item Value Reference Range Interpretation Comments ACTIVATED CLOTTING TIME 626 sec TEST ED AT [place] [address] ([facility]) (test code = JULIANO [place]borne [place] 441) [address] [id number] 17:52:00 Test Item Value Reference Range Interpretation Comments ACTIVATED CLOTTING TIME 808 sec TEST ED AT [place] [address] ([facility]) (test code = JULIANO [place] 441) [address] [id number] 16:54:00 Test Item Value Reference Range Interpretation Comments PARTIAL THROMBOPLASTIN TIME 40.2 seconds 22.5-36.0 H ([facility]) (test code = 760) [id number] 16:53:00 Test Item Value Reference Range Interpretation Comments FIBRINOGEN LEVEL ([facility]) (test 306 mg/dl 225-434 code = 658) PROTHROMBIN [id number] 16:50:00 Test Item Value Reference Range Interpretation Comments PROTIME ([facility]) (test code = 19.6 seconds 11.7-14.7 H 759) INR ([facility]) (test code = 370) 1.7 <=5.9 RECOMMENDED COUMADIN/WARFARIN INR THERAPY RANGESSTANDARD DOSE: 2.0 - 3.0 Includes: PROPHYLAXIS forvenous thrombosis, systemic embolization; TREATMENT for venous thrombosis and/or pulmonary embolus.HIGH RISK: Target INR is 2.5-3.5 for patients with mechanical heart valves.PLATELET [id number] 16:45:00 Test Item Value Reference Range Interpretation Comments PLATELET COUNT (BEAKER) (test 136 K/CU MM 150-450 L code = 756) POTASSIUM-STAT [id number] 16:15:00 Test Item Value Reference Range Interpretation Comments POTASSIUM (BEAKER) (test code = 4.9 meq/L 3.6-5.5 379) BLOOD GAS, [id number] 16:15:00 Test Item Value Reference Range Interpretation [...] code = 1819) 100.0 % SODIUM NA-STAT [id number] 16:15:00 Test Item Value Reference Range Interpretation Comments SODIUM (BEAKER) (test code = 381) 131 meq/L 135-148 L GLUCOSE-STAT [id number] 16:15:00 Test Item Value Reference Range Interpretation Comments GLUCOSE RANDOM (BEAKER) (test code 198 mg/dL 70-110 H = 652) HGB/HCT (H&H) - STAT [id number] 16:15:00 Test Item Value Reference Range Interpretation Comments HEMOGLOBIN (BEAKER) (test code = 7.5 g/dL 12.0-15.0 L 410) HEMATOCRIT (BEAKER) (test code = 22.0 % 36.0-45.0 L 411) CALCIUM, [id number] 16:14:00 Test Item Value Reference Range Interpretation Comments CALCIUM IONIZED (BEAKER) (test 0.91 mmol/L 1.12-1.27 L code = 698) PH, BLOOD (BEAKER) (test code = 7.39 1810) BLOOD GAS, [id number] 15:39:00 Test Item Value Reference Range Interpretation [...] code = 1819) 70.0 % SODIUM NA-STAT [id number] 15:39:00 Test Item Value Reference Range Interpretation Comments SODIUM (BEAKER) (test code = 381) 131 meq/L 135-148 L GLUCOSE-STAT [id number] 15:39:00 Test Item Value Reference Range Interpretation Comments GLUCOSE RANDOM (BEAKER) (test code 186 mg/dL 70-110 H = 652) HGB/HCT (H&H) - STAT [id number] 15:39:00 Test Item Value Reference Range Interpretation Comments HEMOGLOBIN (BEAKER) (test code = 7.5 g/dL 12.0-15.0 L 410) HEMATOCRIT (BEAKER) (test code = 22.0 % 36.0-45.0 L 411) POTASSIUM-STAT [id number] 15:38:00 Test Item Value Reference Range Interpretation Comments POTASSIUM (BEAKER) (test code = 5.3 meq/L 3.6-5.5 379) BLOOD GAS, [id number] 15:24:00 Test Item Value Reference Range Interpretation [...] code = 1819) 70.0 % SODIUM NA-STAT [id number] 15:24:00 Test Item Value Reference Range Interpretation Comments SODIUM (BEAKER) (test code = 381) 130 meq/L 135-148 L GLUCOSE-STAT [id number] 15:24:00 Test Item Value Reference Range Interpretation Comments GLUCOSE RANDOM (BEAKER) (test code 189 mg/dL 70-110 H = 652) HGB/HCT (H&H) - STAT [id number] 15:24:00 Test Item Value Reference Range Interpretation Comments HEMOGLOBIN (BEAKER) (test code = 6.7 g/dL 12.0-15.0 L 410) HEMATOCRIT (BEAKER) (test code = 20.0 % 36.0-45.0 L 411) POTASSIUM-STAT [id number] 15:23:00 Test Item Value Reference Range Interpretation Comments POTASSIUM (BEAKER) (test code = 5.4 meq/L 3.6-5.5 379) BLOOD GAS, [id number] 15:07:00 Test Item Value Reference Range Interpretation [...] code = 1819) 70.0 % SODIUM NA-STAT [id number] 15:07:00 Test Item Value Reference Range Interpretation Comments SODIUM (BEAKER) (test code = 381) 129 meq/L 135-148 L GLUCOSE-STAT [id number] 15:07:00 Test Item Value Reference Range Interpretation Comments GLUCOSE RANDOM (BEAKER) (test code 172 mg/dL 70-110 H = 652) HGB/HCT (H&H) - STAT [id number] 15:07:00 Test Item Value Reference Range Interpretation Comments HEMOGLOBIN (BEAKER) (test code = 7.1 g/dL 12.0-15.0 L 410) HEMATOCRIT (BEAKER) (test code = 21.0 % 36.0-45.0 L 411) POTASSIUM-STAT [id number] 15:04:00 Test Item Value Reference Range Interpretation Comments POTASSIUM (BEAKER) (test code = 5.0 meq/L 3.6-5.5 379) BLOOD GAS, [id number] 14:21:00 Test Item Value Reference Range Interpretation [...] code = 1819) 70.0 % SODIUM NA-STAT [id number] 14:21:00 Test Item Value Reference Range Interpretation Comments SODIUM (BEAKER) (test code = 381) 133 meq/L 135-148 L GLUCOSE-STAT [id number] 14:21:00 Test Item Value Reference Range Interpretation Comments GLUCOSE RANDOM (BEAKER) (test code 160 mg/dL 70-110 H = 652) HGB/HCT (H&H) - STAT [id number] 14:21:00 Test Item Value Reference Range Interpretation Comments HEMOGLOBIN (BEAKER) (test code = 7.5 g/dL 12.0-15.0 L 410) HEMATOCRIT (BEAKER) (test code = 22.0 % 36.0-45.0 L 411) POTASSIUM-STAT [id number] 14:20:00 Test Item Value Reference Range Interpretation Comments POTASSIUM (BEAKER) (test code = 4.7 meq/L 3.6-5.5 379) BLOOD GAS, [id number] 13:58:00 Test Item Value Reference Range Interpretation [...] code = 1819) 80.0 % SODIUM NA-STAT [id number] 13:58:00 Test Item Value Reference Range Interpretation Comments SODIUM (BEAKER) (test code = 381) 132 meq/L 135-148 L GLUCOSE-STAT [id number] 13:58:00 Test Item Value Reference Range Interpretation Comments GLUCOSE RANDOM (BEAKER) (test code 166 mg/dL 70-110 H = 652) HGB/HCT (H&H) - STAT [id number] 13:58:00 Test Item Value Reference Range Interpretation Comments HEMOGLOBIN (BEAKER) (test code = 7.5 g/dL 12.0-15.0 L 410) HEMATOCRIT (BEAKER) (test code = 22.0 % 36.0-45.0 L 411) POTASSIUM-STAT [id number] 13:57:00 Test Item Value Reference Range Interpretation Comments POTASSIUM (BEAKER) (test code = 4.7 meq/L 3.6-5.5 379) BLOOD GAS, [id number] 13:35:00 Test Item Value Reference Range Interpretation [...] (test code = 1819) 80.0 % GLUCOSE-STAT [id number] 13:35:00 Test Item Value Reference Range Interpretation Comments GLUCOSE RANDOM (BEAKER) (test code 130 mg/dL 70-110 H = 652) HGB/HCT (H&H) - STAT [id number] 13:35:00 Test Item Value Reference Range Interpretation Comments HEMOGLOBIN (BEAKER) (test code = 6.7 g/dL 12.0-15.0 L 410) HEMATOCRIT (BEAKER) (test code = 20.0 % 36.0-45.0 L 411) SODIUM NA-STAT [id number] 13:35:00 Test Item Value Reference Range Interpretation Comments SODIUM (BEAKER) (test code = 381) 133 meq/L 135-148 L POTASSIUM-STAT [id number] 13:34:00 Test Item Value Reference Range Interpretation Comments POTASSIUM (BEAKER) (test code = 4.2 meq/L 3.6-5.5 379) BLOOD GAS, [id number] 13:16:00 Test Item Value Reference Range Interpretation [...] code = 1819) 80.0 % SODIUM NA-STAT [id number] 13:16:00 Test Item Value Reference Range Interpretation Comments SODIUM (BEAKER) (test code = 381) 133 meq/L 135-148 L HGB/HCT (H&H) - STAT [id number] 13:16:00 Test Item Value Reference Range Interpretation Comments HEMOGLOBIN (BEAKER) (test code = 6.3 g/dL 12.0-15.0 L 410) HEMATOCRIT (BEAKER) (test code = 19.0 % 36.0-45.0 L 411) CALCIUM, [id number] 13:15:00 Test Item Value Reference Range Interpretation Comments CALCIUM IONIZED (BEAKER) (test 0.98 mmol/L 1.12-1.27 L code = 698) PH, BLOOD (BEAKER) (test code = 7.34 1810) BLOOD GAS, [id number] 13:15:00 Test Item Value Reference Range Interpretation [...] (test code = 1819) 80.0 % GLUCOSE-STAT [id number] 13:14:00 Test Item Value Reference Range Interpretation Comments GLUCOSE RANDOM (BEAKER) (test code = 92 mg/dL 70-110 652) POTASSIUM-STAT [id number] 13:14:00 Test Item Value Reference Range Interpretation Comments POTASSIUM (BEAKER) (test code = 3.9 meq/L 3.6-5.5 379) BLOOD GAS, [id number] 10:54:00 Test Item Value Reference Range Interpretation [...] 1819) 100.0 % HGB/HCT (H&H) - STAT [id number] 10:54:00 Test Item Value Reference Range Interpretation Comments HEMOGLOBIN (BEAKER) (test code = 9.3 g/dL 12.0-15.0 L 410) HEMATOCRIT (BEAKER) (test code = 27.0 % 36.0-45.0 L 411) SODIUM NA-STAT [id number] 10:54:00 Test Item Value Reference Range Interpretation Comments SODIUM (BEAKER) (test code = 381) 132 meq/L 135-148 L GLUCOSE-STAT [id number] 10:52:00 Test Item Value Reference Range Interpretation Comments GLUCOSE RANDOM (BEAKER) (test code = 94 mg/dL 70-110 652) POTASSIUM-STAT [id number] 10:52:00 Test Item Value Reference Range Interpretation Comments POTASSIUM (BEAKER) (test code = 4.0 meq/L 3.6-5.5 379) HEMOGLOBIN [id number] 09:50:00 Test Item Value Reference Range Interpretation Comments HEMOGLOBIN A1C (BEAKER) (test code = 10.6 % 4.3-6.1 H 368) PLATELET AGGREGATION: FUNCTION [id number] 08:27:00 Test Item Value Reference Range Interpretation Comments WEAK ADP 63 % 60-91 RESULT(BEAKER) (test code = 2135) PLATELET FUNCTION 60-100% indicates SCREEN INTERP (BEAKER) normal platelet (test code = 2173) function [id number] Toshia Post MD (BEAKER) (test code = (electronic signature) 4665) PLATELET COUNT AGG 198 K/CU MM 150-450 (BEAKER) (test code = 8836) for patients on clopidogrel in past two weeksPOCT-GLUCOSE [id number] 08:11:00 Test Item Value Reference Range Interpretation Comments POC-GLUCOSE METER 116 mg/dL 70-[address] [facility] 6720 (BEAKER) (test code = JULIANO Osborne [place] 1538) [address] [id number] 07:10:00 Test Item Value Reference Range Interpretation Comments PHOSPHORUS (BEAKER) (test code = 4.5 mg/dL 2.3-4.7 604) [id number] 07:10:00 Test Item Value Reference Range Interpretation Comments MAGNESIUM (BEAKER) (test code = 2.1 mg/dL 1.6-2.6 627) BASIC METABOLIC [id number] 07:10:00 Test Item Value Reference Range Interpretation [...] = 700) CBC W/PLT COUNT & AUTO [id number] 06:46:00 Test Item Value Reference Range Interpretation [...] PERCENT (BEAKER) (test code = 2801) CALCIUM, [id number] 06:40:00 Test Item Value Reference Range Interpretation Comments CALCIUM IONIZED (BEAKER) (test 1.06 mmol/L 1.12-1.27 L code = 698) PH, BLOOD (BEAKER) (test code = 7.39 1810) POCT-GLUCOSE [id number] 23:22:00 Test Item Value Reference Range Interpretation Comments POC-GLUCOSE METER 165 mg/dL 70-[address] [facility] 6720 (BEAKER) (test code = JULIANO [place] 1538) [address] URINE PROTEIN ELECTROPHORESIS, [id number] 18:02:00 Test Item Value Reference Range Interpretation Comments PROTEIN, URINE 305 mg/dL 0-14 H (BEAKER) (test code = 1569) ALBUMIN URINE ELP 70.9 % (BEAKER) (test code = 1018) GAMMA GLOBULIN URINE 29.1 % (BEAKER) (test code = 1015) UPEP, ID-438 (BEAKER) No monoclonal bands (test code = 0744) detected. [id number] Rocio Galindo MD ([facility]) (test code = (electronic signature) 6111) PROTEIN ELECTROPHORESIS, [id number] 17:57:00 Test Item Value Reference Range Interpretation [...] with (BEAKER) (test code = concurrent relative 4770) increases in all globulin fractions. No monoclonal bands detected. [id number] Rocio Galindo MD (BEAKER) (test code = (electronic signature) 4678) PROTEIN TOTAL SERUM, 5.5 gm/dL 6.0-8.3 L SPEP (BEAKER) (test code = 2660) POCT-GLUCOSE [id number] 17:15:00 Test Item Value Reference Range Interpretation Comments POC-GLUCOSE METER 209 mg/dL 70-[address] [facility] 6720 (BEAKER) (test code = [place]IANO [place] 1538) [address] BLOOD GAS, [id number] 15:54:00 Test Item Value Reference Range Interpretation [...] 36.0 % RAD, CHEST, 1 VIEW, NON [id number] 14:07:00Reason for exam:->SOB, hypoxemiaShould this be performed [...] Regan Cespedes Verified Date/Time: 05/19/2017 14:07:07 Reading Location:[address] Consult Reading Room POCT-GLUCOSE [id number] 11:26:00 Test Item Value Reference Range Interpretation Comments POC-GLUCOSE METER 262 mg/dL 70-[address] [facility] 6720 (BEAKER) (test code = JULIANO Osborne [place] 1538) [address] POCT-GLUCOSE [id number] 07:37:00 Test Item Value Reference Range Interpretation Comments POC-GLUCOSE METER 170 mg/dL 70-[address] [facility] 6720 (BEAKER) (test code = JULIANO Osborne [place] 1538) [address] CALCIUM, [id number] 06:06:00 Test Item Value Reference Range Interpretation Comments CALCIUM IONIZED (BEAKER) (test 1.05 mmol/L 1.12-1.27 L code = 698) PH, BLOOD (BEAKER) (test code = 7.41 1810) [id number] 05:38:00 Test Item Value Reference Range Interpretation Comments PHOSPHORUS (BEAKER) (test code = 3.9 mg/dL 2.3-4.7 604) [id number] 05:38:00 Test Item Value Reference Range Interpretation Comments MAGNESIUM (BEAKER) (test code = 2.2 mg/dL 1.6-2.6 627) BASIC METABOLIC [id number] 05:38:00 Test Item Value Reference Range Interpretation [...] PATIEN TS. CBC W/PLT COUNT & AUTO [id number] 05:09:00 Test Item Value Reference Range Interpretation [...] PERCENT (BEAKER) (test code = 2801) POCT-GLUCOSE [id number] 22:08:00 Test Item Value Reference Range Interpretation Comments POC-GLUCOSE METER 263 mg/dL 70-[address] [facility] 6720 (BEAKER) (test code = JULIANO Osborne [place] 1538) [address] POCT-GLUCOSE [id number] 17:20:00 Test Item Value Reference Range Interpretation Comments POC-GLUCOSE METER 233 mg/dL 70-[address] [facility] 6720 (BEAKER) (test code = [facility] [employer] 1538) [address] POCT-GLUCOSE [id number] 08:28:00 Test Item Value Reference Range Interpretation Comments POC-GLUCOSE METER 154 mg/dL 70-[address] [facility] 6720 (BEAKER) (test code = [facility] [employer] 1538) [address] BASIC METABOLIC [id number] 06:41:00 Test Item Value Reference Range Interpretation [...] S NOT APPLICABLE FOR DIALYSIS PATIEN TS. [id number] 06:35:00 Test Item Value Reference Range Interpretation Comments PHOSPHORUS (BEAKER) (test code = 4.1 mg/dL 2.3-4.7 604) [id number] 06:35:00 Test Item Value Reference Range Interpretation Comments MAGNESIUM (BEAKER) (test code = 2.1 mg/dL 1.6-2.6 627) CALCIUM, [id number] 06:22:00 Test Item Value Reference Range Interpretation Comments CALCIUM IONIZED (BEAKER) (test 1.10 mmol/L 1.12-1.27 L code = 698) PH, BLOOD (BEAKER) (test code = 7.38 1810) CBC W/PLT COUNT & AUTO [id number] 06:04:00 Test Item Value Reference Range Interpretation [...] ABSOLUTE COUNT 6.15 K/ L 1.56-6.13 H ([facility]) (test code = 670) LYMPHOCYTES ABSOLUTE COUNT 2.20 K/ L 1.18-3.74 (BEAKER) (test code = 414) MONOCYTES ABSOLUTE COUNT (BEAKER) 0.62 K/ L 0.24-0.36 H (test code = 415) EOSINOPHILS ABSOLUTE COUNT 0.24 K/ L 0.04-0.36 (BEAKER) (test code = 416) BASOPHILS ABSOLUTE COUNT (BEAKER) 0.06 K/ L 0.01-0.08 (test code = 417) IMMATURE GRANULOCYTES-RELATIVE 0 % 0-1 PERCENT ([facility]) (test code = 2801) POCT-GLUCOSE [id number] 03:44:00 Test Item Value Reference Range Interpretation Comments POC-GLUCOSE METER 220 mg/dL 70-[address] [facility] 67 ([facility]) (test code = [facility] [employer] [facility] 1538) [address] POCT-GLUCOSE [id number] 18:27:00 Test Item Value Reference Range Interpretation Comments POC-GLUCOSE METER 256 mg/dL 70-110 H TESTED AT [place] [address] ([facility]) (test code = [facility] [employer] [place] 1538) [address] POCT-GLUCOSE [id number] 15:45:00 Test Item Value Reference Range Interpretation Comments POC-GLUCOSE METER 278 mg/dL 70-110 H TESTED AT [place] [address] ([facility]) (test code = [facility] [employer] [facility] 1538) [address] POCT-GLUCOSE [id number] 13:22:00 Test Item Value Reference Range Interpretation Comments POC-GLUCOSE METER 278 mg/dL 70-110 H TESTED AT [place] [address] ([facility]) (test code = [facility] [employer] [place] 1538) [address] PLATELET AGGREGATION: FUNCTION [id number] 13:18:00 Test Item Value Reference Range Interpretation Comments WEAK ADP 66 % 60-91 RESULT([facility]) (test code = 2135) PLATELET FUNCTION 60-100% indicates SCREEN INTERP ([facility]) normal platelet (test code = 2173) function [id number] Rigoberto Duenas MD ([facility]) (test code = (electronic signature) 0951) PLATELET COUNT AGG 204 K/CU MM 150-450 (AKER) (test code = 2656) POCT-GLUCOSE [id number] 08:27:00 Test Item Value Reference Range Interpretation Comments POC-GLUCOSE METER 189 mg/dL 70-[address] [facility] 6720 (BEAKER) (test code = [place] 1538) [address] CALCIUM, [id number] 06:12:00 Test Item Value Reference Range Interpretation Comments CALCIUM IONIZED (BEAKER) (test 1.07 mmol/L 1.12-1.27 L code = 698) PH, BLOOD (BEAKER) (test code = 7.36 1810) [id number] 05:43:00 Test Item Value Reference Range Interpretation Comments PHOSPHORUS (BEAKER) (test code = 3.6 mg/dL 2.3-4.7 604) [id number] 05:43:00 Test Item Value Reference Range Interpretation Comments MAGNESIUM (BEAKER) (test code = 2.1 mg/dL 1.6-2.6 627) BASIC METABOLIC [id number] 05:43:00 Test Item Value Reference Range Interpretation [...] PATIEN TS. CBC W/PLT COUNT & AUTO [id number] 05:05:00 Test Item Value Reference Range Interpretation [...] PERCENT (BEAKER) (test code = 2801) POCT-GLUCOSE [id number] 21:32:00 Test Item Value Reference Range Interpretation Comments POC-GLUCOSE METER 176 mg/dL 70-110 H TESTED AT [place] [address] ([facility]) (test code = JULIANO Osborne [facility] 1538) [address] POCT-GLUCOSE [id number] 20:27:00 Test Item Value Reference Range Interpretation Comments POC-GLUCOSE METER 161 mg/dL 70-110 H TESTED AT [place] [address] ([facility]) (test code = JULIANO Osborne [facility] 1538) [address] POCT-GLUCOSE [id number] 18:23:00 Test Item Value Reference Range Interpretation Comments POC-GLUCOSE METER 185 mg/dL 70-110 H TESTED AT [place] [address] ([facility]) [facility] = [facility] 1538) [address] POCT-GLUCOSE [id number] 13:26:00 Test Item Value Reference Range Interpretation Comments POC-GLUCOSE METER 282 mg/dL 70-110 H TESTED AT [place] [address] ([facility]) (test code = [facility] [employer] [facility] 1538) [address] URINE [id number] 10:12:00 Test Item Value Reference Range Interpretation Comments CULTURE ([facility]) (test >100,000 col/mL skin code = 1095) todd POCT-GLUCOSE [id number] 09:01:00 Test Item Value Reference Range Interpretation Comments POC-GLUCOSE METER 268 mg/dL 70-110 H TESTED AT [place] [address] ([facility]) (test code = [facility] 1538) [address] CALCIUM, [id number] 05:39:00 Test Item Value Reference Range Interpretation Comments CALCIUM IONIZED (BEAKER) (test 0.84 mmol/L 1.12-1.27 L code = 698) PH, BLOOD ([facility]) (test code = 7.35 4560) BASIC METABOLIC [id number] 05:07:00 Test Item Value Reference Range Interpretation [...] S NOT APPLICABLE FOR DIALYSIS PATIEN TS. [id number] 05:06:00 Test Item Value Reference Range Interpretation Comments PHOSPHORUS (BEAKER) (test code = 3.2 mg/dL 2.3-4.7 604) [id number] 05:06:00 Test Item Value Reference Range Interpretation Comments MAGNESIUM (BEAKER) (test code = 2.3 mg/dL 1.6-2.6 627) CBC W/PLT COUNT & AUTO [id number] 04:42:00 Test Item Value Reference Range Interpretation [...] = 2801) RHEUMATOID FACTOR AB, REFLEX TO [id number] 01:52:00 Test Item Value Reference Range Interpretation Comments RHEUMATOID FACTOR ([facility]) (test Negative code = 573) POCT-GLUCOSE [id number] 21:57:00 Test Item Value Reference Range Interpretation Comments POC-GLUCOSE METER 105 mg/dL 70-[address] [facility] 6720 ([facility]) (test code = JULIANO Osborne [facility] 1538) [address] POCT-GLUCOSE [id number] 18:11:00 Test Item Value Reference Range Interpretation Comments POC-GLUCOSE METER 312 mg/dL 70-110 H Notified Dylon Austin MD/TESTED ([facility]) (test code = AT [facility] 6720 [facility] 1538) [facility] 7[address] 0 PET, CARDIAC PERFUSION MULTIPLE STUDIES, REST AND [id number] 16:28:00 Reason for exam:->pvcs, known cadFINAL REPORT PROCEDURE: Rest/Stress MYOCARDIAL PERFUSION PET with regadenoson\\XA9\\ CPT CODE: 07743 INDICATION: Defined extent and severity of known [...] is 23%. LVEF at stress is 36%. Recreational Aide CT images revealed a right pleural effusion [...] pericardial effusions. 7. No previous [facility] study for comparison. NONINVASIVE RISK STRATIFICATION: The above findings are considered high risk (>3% annual mortality rate) based on the following criteria: - Severe resting left ventricular dysfunction (LVEF 35%)- Stress-induced large perfusion defect (particularly if anterior)(JACC. 2012;59(9):857-81.) Signed: Natan Whaley Verified Date/Time: 05/15/2017 16:28:12 Reading Location: [address] Med ReadingRoom RAD, CHEST, 1 VIEW, NON [id number] 15:56:00Reason for exam:->SOBShould this be performed at the bedside?->YesFINAL REPORT Comparison: 05/14/2017 TECHNIQUE: Single view of the chest FINDINGS: There is a small right pleural effusion with nonspecific airspace disease. This is unchanged. Left lung is grossly clear. Cardiac silhouette is enlarged. IMPRESSION: 1. No acute cardiopulmonary disease. Signed: Sixto Monk MDReport Verified Date/Time: 05/15/2017 15:56:39 Reading Location: [facility] iology Reading Room POCT-GLUCOSE [id number] 12:54:00 Test Item Value Reference Range Interpretation Comments POC-GLUCOSE METER 308 mg/dL 70-110 H Notified Dylon Austin MD/NATHAN (ROBERT) (test code = AT [facility] [address] [place] [id number]) [facility] 770 0 U/S, RENAL WITH [id number] 11:04:00Reason for exam:->tracy, htnShould this be performed [...] in the resistive indices throughout. Signed: Anahi Hobbsort Verified Date/Time: 05/15/2017 11:04:01 Reading Location: [address] Ultrasound Reading Room ANA TITER AND [id number] 10:57:00 Test Item Value Reference Range Interpretation Comments ROGER TITER (BEAKER) (test code = :160 1541) ROGER PATTERN (BEAKER) (test code = Speckled 1781) ANTI-NUCLEAR ANTIBODY (ROGER)2017-05-15 10:56:00 Test Item Value Reference Range Interpretation Comments ANTI-NUCLEAR ANTIBODY (ROGER) (BEAKER) Positive Negative A (test code = 418) CALCIUM, [id number] 06:00:00 Test Item Value Reference Range Interpretation Comments CALCIUM IONIZED (BEAKER) (test 1.07 mmol/L 1.12-1.27 L code = 698) PH, BLOOD (BEAKER) (test code = 7.28 1810) HEPATITIS PANEL, [id number] 05:01:00 Test Item Value Reference Range Interpretation Comments HEPATITIS A IGM ANTIBODY (BEAKER) Nonreactive Nonreactive (test code = 498) HEPATITIS B CORE IGM ANTIBODY Nonreactive Nonreactive (BEAKER) (test code = 645) HEPATITIS C ANTIBODY (BEAKER) Nonreactive Nonreactive (test code = 367) HEPATITIS B SURFACE ANTIGEN (2) Nonreactive Nonreactive (BEAKER) (test code = 2585) BASIC METABOLIC [id number] 04:48:00 Test Item Value Reference Range Interpretation [...] NOT APPLICABLE FOR DIALYSIS PATIEN TS. URIC [id number] 04:41:00 Test Item Value Reference Range Interpretation Comments URIC ACID (BEAKER) (test code = 10.3 mg/dL 2.6-7.2 H 773) [id number] 04:41:00 Test Item Value Reference Range Interpretation Comments MAGNESIUM (BEAKER) (test code = 2.0 mg/dL 1.6-2.6 627) [id number] 04:41:00 Test Item Value Reference Range Interpretation Comments PHOSPHORUS (BEAKER) (test code = 4.2 mg/dL 2.3-4.7 604) COMPLEMENT COMPONENT [id number] 04:38:00 Test Item Value Reference Range Interpretation Comments C4 COMPLEMENT (BEAKER) (test code = 28 mg/dL 15-57 394) COMPLEMENT COMPONENT [id number] 04:38:00 Test Item Value Reference Range Interpretation Comments C3 COMPLEMENT (BEAKER) (test code = 103 mg/dL 82-193 393) CBC W/PLT COUNT & AUTO [id number] 04:22:00 Test Item Value Reference Range Interpretation [...] LYMPHOCYTES ABSOLUTE COUNT 3.35 K/ L 1.18-3.74 ([facility]) (test code = 414) MONOCYTES ABSOLUTE COUNT (BEAKER) 0.59 K/ L 0.24-0.36 H (test code = 415) EOSINOPHILS ABSOLUTE COUNT 0.21 K/ L 0.04-0.36 (AKER) (test code = 416) BASOPHILS ABSOLUTE COUNT (AKER) 0.06 K/ L 0.01-0.08 (test code = 417) IMMATURE GRANULOCYTES-RELATIVE 0 % 0-1 PERCENT ([facility]) (test code = 2801) POCT-GLUCOSE [id number] 21:46:00 Test Item Value Reference Range Interpretation Comments POC-GLUCOSE METER 173 mg/dL 70-110 H TESTED AT [place] [address] ([facility]) (test code = [facility] 1538) [id number] POCT-GLUCOSE [id number] 21:46:00 Test Item Value Reference Range Interpretation Comments POC-GLUCOSE METER 154 mg/dL 70-110 H TESTED AT [place] [address] ([facility]) (test code = [facility] 1538) [id number] POCT-GLUCOSE [id number] 18:17:00 Test Item Value Reference Range Interpretation Comments POC-GLUCOSE METER 175 mg/dL 70-110 H TESTED AT [place] [address] ([facility]) (test code = [facility] 1538) [address] RAD, CHEST, 1 VIEW, NON [id number] 14:56:00Reason for exam:->SOBShould this be performed at the bedside?->YesFINAL REPORT INDICATION: SOB COMPARISON: May 13, 2017 TECHNIQUE: Chest radiograph, single view, portable technique. FINDINGS / IMPRESSION: Enlarged heart shadow, small rightpleural effusion, and pulmonary venous congestion, again demonstrated. No pneumothorax or consolidation. Osseous structures unremarkable. Signed: Thania Dwyer Verified Date/Time: 05/14/2017 14:56:58 Reading Location: [facility] Mammo Reading Room POCT-GLUCOSE [id number] 12:18:00 Test Item Value Reference Range Interpretation Comments POC-GLUCOSE METER 313 mg/dL 70-[address] [facility] 6720 (BEAKER) (test code = [place] 1534) [address] HIV-1 ANTIGEN WITH HIV-1/2 [id number] 12:07:00 Test Item Value Reference Range Interpretation Comments HIV-1 ANTIGEN WITH HIV 1\\T\\2 Nonreactive Nonreactive ANTIBODY (2) (BEAKER) (test code = 2586) CALCIUM, [id number] 06:37:00 Test Item Value Reference Range Interpretation Comments CALCIUM IONIZED (BEAKER) (test 1.08 mmol/L 1.12-1.27 L code = 698) PH, BLOOD (BEAKER) (test code = 7.25 1810) BASIC METABOLIC [id number] 06:26:00 Test Item Value Reference Range Interpretation [...] pg/mL 0-100 H (test code = 700) [id number] 06:25:00 Test Item Value Reference Range Interpretation Comments PHOSPHORUS (BEAKER) (test code = 5.7 mg/dL 2.3-4.7 H 604) [id number] 06:25:00 Test Item Value Reference Range Interpretation Comments MAGNESIUM (BEAKER) (test code = 1.5 mg/dL 1.6-2.6 L 627) CBC W/PLT COUNT & AUTO [id number] 06:07:00 Test Item Value Reference Range Interpretation [...] PERCENT (BEAKER) (test code = 2801) POCT-GLUCOSE [id number] 22:38:00 Test Item Value Reference Range Interpretation Comments POC-GLUCOSE METER 262 mg/dL 70-[address] [facility] 6720 (BEAKER) (test code = JULIANO RUTH [place] 1538) [id number] PROTEIN, RANDOM [id number] 22:18:00 Test Item Value Reference Range Interpretation Comments PROTEIN, URINE (BEAKER) (test code 641 mg/dL 0-14 H = 1569) CREATININE, RANDOM [id number] 22:07:00 Test Item Value Reference Range Interpretation Comments CREATININE URINE (BEAKER) (test 124.9 mg/dL code = 375) Reference Range: No NormalsURINALYSIS W/ [id number] 22:03:00 Test Item Value Reference Range Interpretation [...] 1585) SOURCE(BEAKER) (test code = Urine, Voided 3782) [id number] 19:49:00 Test Item Value Reference Range Interpretation Comments SODIUM (BEAKER) (test 136 meq/L 136-145 code = 381) POTASSIUM (BEAKER) 5.1 meq/L 3.5-5.1 Specimen slightly (test code = 379) hemolyzed CHLORIDE (BEAKER) 104 meq/L 98-107 (test code = 382) CO2 (BEAKER) (test 25 meq/L 22-29 code = 355) Call if K > 5POCT-GLUCOSE [id number] 11:37:00 Test Item Value Reference Range Interpretation Comments POC-GLUCOSE METER 293 mg/dL 70-110 H TESTED AT [place] [address] ([facility]) (test code = JULIANO Osborne [facility] 1538) [address] RAD, CHEST, 1 VIEW, NON [id number] 10:22:00Reason for exam:->SOBShould this be performed at the bedside?->YesFINAL REPORT Chest one view Discussion: There is cardiomegaly and interstitial congestion. A small right-sided effusion is noted. No pneumothorax. IMPRESSIONS: Suspected CHF. Signed: Jeannette Nava Verified Date/Time: 05/13/2017 10:22:34 Reading Location: [facility] Radiology Reading Room POCT-GLUCOSE METER 2017-05-13 08:34:00 Test Item Value Reference Range Interpretation Comments POC-GLUCOSE METER 178 mg/dL 70-[address] [facility] 67 ([facility]) (test code = JULIANO Osborne [facility] 1538) [id number] POCT-GLUCOSE [id number] 06:53:00 Test Item Value Reference Range Interpretation Comments POC-GLUCOSE METER 167 mg/dL 70-[address] [facility] 6720 (BEAKER) (test code = JULIANO RUTH [place] 1538) [address] [id number] 04:48:00 Test Item Value Reference Range Interpretation Comments BLOOD UREA NITROGEN (BEAKER) (test 36 mg/dL 7-21 H code = 354) [id number] 04:48:00 Test Item Value Reference Range Interpretation Comments SODIUM (BEAKER) (test code = 381) 139 meq/L 136-145 POTASSIUM (BEAKER) (test code = 5.2 meq/L 3.5-5.1 H 379) CHLORIDE (BEAKER) (test code = 382) 109 meq/L 98-107 H CO2 (BEAKER) (test code = 355) 23 meq/L 22-29 [id number] 04:48:00 Test Item Value Reference Range Interpretation [...] WBC 0-0 (BEAKER) (test code = 413) [id number] 23:29:00 Test Item Value Reference Range Interpretation Comments ACTIVATED CLOTTING TIME 136 sec TEST ED AT [place] [address] ([facility]) (test code = JULIANO Osborne [place] [address]) [address] [id number] 20:13:00 Test Item Value Reference Range Interpretation Comments ACTIVATED CLOTTING TIME 175 sec TEST ED AT [place] [address] ([facility]) (test code = JULIANO Osborne [place] [address]) [address] [id number] 18:36:00 Test Item Value Reference Range Interpretation Comments ACTIVATED CLOTTING TIME 202 sec TEST ED AT [place] [address] ([facility]) (test code = JULIANO Osborne [place] [address]) [address] [id number] 18:03:00 Test Item Value Reference Range Interpretation Comments ACTIVATED CLOTTING TIME 208 sec TEST ED AT [place] [address] ([facility]) (test code = JULIANO Osborne [place] [address]) [address] BASIC METABOLIC [id number] 11:57:00 Test Item Value Reference Range Interpretation [...] NOT APPLICABLE FOR DIALYSIS PATIEN TS. PROTHROMBIN [id number] 11:15:00 Test Item Value Reference Range Interpretation [...] if on CoumadinCBC W/PLT COUNT & AUTO [id number] 11:01:00 Test Item Value Reference Range Interpretation [...] PERCENT (BEAKER) (test code = 2801) POCT-GLUCOSE [id number] 12:35:00 Test Item Value Reference Range Interpretation Comments POC-GLUCOSE METER 249 mg/dL 70-110 H TESTED AT [place] [address] ([facility]) (test code = [facility] 1538) [address] POCT-GLUCOSE [id number] 09:10:00 Test Item Value Reference Range Interpretation Comments POC-GLUCOSE METER 155 mg/dL 70-110 H TESTED AT [place] [address] ([facility]) (test code = [facility] 1538) [address] BASIC METABOLIC [id number] 05:39:00 Test Item Value Reference Range Interpretation [...] S NOT APPLICABLE FOR DIALYSIS PATIEN TS. [id number] 05:27:00 Test Item Value Reference Range Interpretation Comments PHOSPHORUS (BEAKER) (test code = 5.0 mg/dL 2.3-4.7 H 604) [id number] 05:27:00 Test Item Value Reference Range Interpretation Comments MAGNESIUM (BEAKER) (test code = 1.6 mg/dL 1.6-2.6 627) POCT-GLUCOSE [id number] 05:25:00 Test Item Value Reference Range Interpretation Comments POC-GLUCOSE METER 144 mg/dL 70-110 H TESTED AT [place] [address] ([facility]) (test code = [facility] [employer] [facility] 1538) [address] PROTHROMBIN [id number] 04:58:00 Test Item Value Reference Range Interpretation Comments PROTIME ([facility]) (test code = 14.2 seconds 11.7-14.7 759) INR ([facility]) (test code = 370) 1.1 <=5.9 RECOMMENDED COUMADIN/WARFARIN INR THERAPY RANGESSTANDARD DOSE: 2.0 - 3.0 Includes: PROPHYLAXIS forvenous thrombosis, systemic embolization; TREATMENT for venous thrombosis and/or pulmonary embolus.HIGH RISK: Target INR is 2.5-3.5 for patients with mechanical heart valves.POCT-GLUCOSE [id number] 23:55:00 Test Item Value Reference Range Interpretation Comments POC-GLUCOSE METER 86 mg/dL 70-110 TESTED AT [place] [address] ([facility]) (test code = [employer] [facility] [address] 1538) B-TYPE NATRIURETIC FACTOR (BNP)2017-04-22 18:13:00 Test Item Value Reference Range Interpretation Comments B-TYPE NATRIURETIC PEPTIDE 1203 pg/mL 0-100 H ([facility]) (test code = 700) POCT-GLUCOSE [id number] 17:36:00 Test Item Value Reference Range Interpretation Comments POC-GLUCOSE METER 259 mg/dL 70-110 H TESTED AT [place] [address] ([facility]) (test code = [employer] [facility] 1538) [address] HEMOGLOBIN [id number] 14:24:00 Test Item Value Reference Range Interpretation Comments HEMOGLOBIN A1C (BEAKER) (test code = 10.5 % 4.3-6.1 H 368) POCT-GLUCOSE [id number] 12:34:00 Test Item Value Reference Range Interpretation Comments POC-GLUCOSE METER 207 mg/dL 70-[address] [facility] 6720 (BEAKER) (test code = JULIANO Osborne [place] 1538) [address] [id number] 07:53:00 Test Item Value Reference Range Interpretation Comments PHOSPHORUS (BEAKER) (test code = 3.9 mg/dL 2.3-4.7 604) [id number] 07:53:00 Test Item Value Reference Range Interpretation Comments MAGNESIUM (BEAKER) (test code = 1.6 mg/dL 1.6-2.6 627) BASIC METABOLIC [id number] 07:53:00 Test Item Value Reference Range Interpretation [...] NOT APPLICABLE FOR DIALYSIS PATIEN TS. TROPONIN [id number] 07:29:00 Test Item Value Reference Range Interpretation [...] acidosis, acute neurological disease, and persistent tachyarrhythmia.PROTHROMBIN [id number] 07:01:00 Test Item Value Reference Range Interpretation Comments PROTIME (ROBERT) (test code = 13.8 seconds 11.7-14.7 759) INR ([facility]) (test code = 370) 1.1 <=5.9 RECOMMENDED COUMADIN/WARFARIN INR THERAPY RANGESSTANDARD DOSE: 2.0 - 3.0 Includes: PROPHYLAXIS forvenous thrombosis, systemic embolization; TREATMENT for venous thrombosis and/or pulmonary embolus.HIGH RISK: Target INR is 2.5-3.5 for patients with mechanical heart valves.POCT-GLUCOSE [id number] 06:28:00 Test Item Value Reference Range Interpretation Comments POC-GLUCOSE METER 198 mg/dL 70-[address] [facility] 6720 ([facility]) (test code = JULIANO RUTH [place] 1538) [address] CREATINE KINASE (CK), TOTAL AND [id number] 00:49:00 Test Item Value Reference Range Interpretation Comments CREATINE KINASE TOTAL (ROBERT) 69 U/L 29-200 (test code = 380) CREATINE KINASE-MB (ROBERT) (test 4.3 ng/mL 0.0-6.6 code = 750) CREATINE KINASE-MB INDEX ([facility]) 6.2 % (test code = 395) CK-MB Reference Range:<6.7 Normal6.7-10.0 Borderline>10.0 AbnormalTROPONIN [id number] 00:49:00 Test Item Value Reference Range Interpretation [...] acidosis, acute neurological disease, and persistent tachyarrhythmia.POCT-GLUCOSE [id number] 20:44:00 Test Item Value Reference Range Interpretation Comments POC-GLUCOSE METER 269 mg/dL 70-[address] [facility] 67 ([facility]) (test code = MATTHIASAMANDA RUTH [place] 1538) [id number]
[2020-04-26] MEDS ORDERED: METHYLPREDNISOLONE 125 MG INJ ONE (16:31)
[2020-04-26] MEDS ORDERED: IPRATROPIUM BROM 0.5MG/2.5ML ONE (16:32)
[2020-04-26] MEDS ORDERED: FUROSEMIDE 20 MG/ 2ML VIAL ONE (16:32)
[2020-04-26] MEDS ORDERED: CEFTRIAXONE/SWI 1gm 1 GM/10 ML SYR ONE (16:41)
[2020-04-26 16:45] LABS: Absolute Lymphocytes (CBC) 1.8 K/uL (0.7-4.9); Basophils % 0.6 % (0-1.3); Hematocrit 32.5 % (36.0-45.0); MPV 7.2 fL (7.6-11.3); RBC Red Blood Cell Count 3.84 M/uL (3.86-4.86)
[2020-04-26 16:49] LABS: Protime INR 1.33
[2020-04-26] MEDS ORDERED: ONDANSETRON 4 MG/2 ML VIAL ONE (16:50)
[2020-04-26] MEDS ORDERED: MORPHINE 4 MG/ML SYR ONE (16:50)
[2020-04-26] MEDS ORDERED: AZITHROMYCIN 500 MG/250 ML BAG IV SCH (17:00)
[2020-04-26 17:15] LABS: Albumin 2.5 g/dL (3.4-5.0); Bilirubin Direct 0.2 mg/dL (0-0.2); Bilirubin Total 0.5 mg/dL (0.2-1.0); CKMB Creatine Kinase MB 4.7 ng/mL (0.3-3.6); Magnesium 1.8 mg/dL (1.8-2.4); Potassium 5.3 mmol/L (3.5-5.1); Troponin (Emerg Dept Use Only) 0.06 ng/mL (0.0-0.045)
[2020-04-26] MEDS ORDERED: NA CHLORIDE 0.9% 1,000 ML ONE (17:34)
--- NOTE | 2020-04-26 17:43 | RAD REPORT ---
EXAM DESCRIPTION: Butch Single View04/26/2020 5:12 pm CLINICAL HISTORY: Congestion COMPARISON: February 2020 FINDINGS: Right base is hazy likely combination of pleural effusion and atelectasis Mild additional bilateral pulmonary opacities likely pulmonary edema. The heart is moderately enlarged. Postsurgical changes involve the chest. A central venous catheter i n place
[2020-04-26 18:00] LABS: SARS-COV-2 RT PCR NEGATIVE (NEGATIVE)
--- NOTE | 2020-04-26 18:38 | ER ---
Nurse's Notes [facility] Name: Christy Priest Age: 65 yrs Sex: Female : 1955 Arrival Date: 04/26/2020 Time: 14:44 Bed 15 Private MD: Diagnosis: Severe sepsis without septic shock;Systolic (congestive) heart failure Presentation: 04/26 14:46 Chief complaint: Patient states: went to the wound healing center and started having aa5 SOB. Pt states "I just feel so cold". Pt reports hx of COPD and CHF, pt states "I've been off all my medicine for about a week because I am having surgery for a dialysis fistula". 14:46 Coronavirus screen: shaking with chills, shortness of breath. Ebola Screen: Patient aa5 negative for fever greater than or equal to 101.5 degrees Fahrenheit, and additional compatible Ebola Virus Disease symptoms. Initial Sepsis Screen: Does the patient meet any 2 criteria? RR > 20 per min. HR > 90 bpm. Yes Does the patient have a suspected source of infection? No. Patient's initial sepsis screen is negative. Risk Assessment: Do you want to hurt yourself or someone else? Patient reports no desire to harm self or others. Onset of symptoms was April 26, 2020. 14:46 Acuity: DENNY 2 aa5 14:46 Method Of Arrival: Wheelchair aa5 Triage Assessment: 16:30 Respiratory: Onset: The symptoms/episode began/occurred gradually, the patient has mild jd3 shortness of breath. Historical: - Allergies: 14:50 Augmentin; aa5 14:50 basil; aa5 14:50 Clindamycin; aa5 14:50 Morphine; aa5 14:50 Nitroglycerin; aa5 14:50 Tramadol HCl; aa5 14:50 Trazodone; aa5 14:50 Vancomycin; aa5 14:50 Vicodin; aa5 - PMHx: 14:50 ADD/ADHD; CHF; COPD; Diabetes - IDDM; ESRD; High Cholesterol; Hypertension; triple aa5 bypass; uterine cancer; - Immunization history:: Adult Immunizations unknown. - Social history:: Patient/guardian denies using alcohol, street drugs, The patient lives with family, Smoking status: unknown. - Family history:: not pertinent. Screenin:30 Abuse screen: Denies threats or abuse. Nutritional screening: No deficits noted. jd3 Tuberculosis screening: No symptoms or risk factors identified. Fall Risk Ambulatory Aid- None/Bed Rest/Nurse Assist (0 pts). Gait- Impaired (20 pts.). Mental Status- Overestimates/Forgets Limitations (15 pts.). Total Merlos Fall Scale indicates Low Risk Score (25-44 pts). Fall prevention measures have been instituted. Side Rails Up X 2 Placed close to Nursing Station Frequent Obs/Assesments occuring. Assessment: 16:30 General: Appears uncomfortable, Behavior is inappropriate for age, restless. jd3 16:30 Pain: Complains of pain in chest Quality of pain is described as pressure. Neuro: Level jd3 of Consciousness is awake, alert, confused, Oriented to person. Cardiovascular: Reports chest pain, Heart tones present Capillary refill < 3 seconds Patient's skin is warm and dry. Rhythm is sinus tachycardia. Respiratory: Reports shortness of breath Airway is patent Respiratory effort is labored, shallow, Respiratory pattern is symmetrical, tachypnea Breath sounds are diminished bilaterally. GI: Abdomen is round distended, Bowel sounds present X 4 quads. Abd is soft and non tender X 4 quads. Patient currently denies diarrhea, nausea, vomiting. : No signs and/or symptoms were reported regarding the genitourinary system. EENT: No signs and/or symptoms were reported regarding the EENT system. Derm: Skin is intact, Skin is dry, Skin is normal, Skin temperature is warm. Musculoskeletal: No signs and/or symptoms reported regarding the musculoskeletal system. 17:30 Reassessment: No changes from previously documented assessment. Patient and/or family jd3 updated on plan of care and expected duration. Pain level reassessed. pt appears more relaxed with respirations. pt states medication helping a little Patient states symptoms have improved. 18:30 Reassessment: Patient appears in no apparent distress at this time. No changes from jd3 previously documented assessment. Patient and/or family updated on plan of care and expected duration. Pain level reassessed. Patient states feeling better. 19:30 General: Appears in no apparent distress. comfortable, Behavior is calm, cooperative, rr5 appropriate for age. 19:30 Pain: Denies pain. Neuro: Level of Consciousness is awake, alert, Oriented to person, rr5 place. Cardiovascular: Capillary refill < 3 seconds Patient's skin is warm and dry. Edema is 2+ to left ankle and right ankle. Respiratory: Airway is patent Respiratory effort is even, unlabored. GI: Abdomen is round distended. : No signs and/or symptoms were reported regarding the genitourinary system. Derm: Skin is intact, Skin is normal, Wound noted right leg and left leg. Musculoskeletal: Capillary refill < 3 seconds, Swelling present in right leg and left leg. 20:30 Reassessment: Patient appears in no apparent distress at this time. awaiting for room. rr5 21:40 Reassessment: Patient appears in no apparent distress at this time. Patient and/or rr5 family updated on plan of care and expected duration. Pain level reassessed. no complaints made, vital signs taken and recorded. Vital Signs: 14:46 BP 154 / 84; Pulse 104; Resp 26 S; Temp 99.5(O); Pulse Ox 98% on R/A; aa5 14:48 Pulse Ox 98% on 2 lpm NC; aa5 17:15 BP 135 / 84; Pulse 102; Resp 24 S; Pulse Ox 97% on 2 lpm NC; jd3 18:11 BP 135 / 75; Pulse 97; Resp 22 S; Pulse Ox 98% on 2 lpm NC; jd3 19:20 BP 119 / 78; Pulse 80; Resp 20; Temp 97.8; Pulse Ox 98% on 4 lpm NC; rr5 20:20 BP 121 / 69; Pulse 70; Resp 17; Pulse Ox 98% on 4 lpm NC; rr5 21:10 BP 117 / 80; Pulse 75; Resp 17; Pulse Ox 98% on 4 lpm NC; rr5 22:05 BP 125 / 70; Pulse 79; Resp 18; Temp 97.5; Pulse Ox 97% on 4 lpm NC; rr5 14:48 for comfort. aa5 ED Course: 14:44 Patient arrived in ED. as 14:46 Arm band placed on. aa5 15:05 Triage completed. aa5 15:56 Annmarie Petersen MD is Attending Physician. ma2 16:02 Kemal Marcos RN is Primary Nurse. jd3 17:06 Inserted saline lock: 20 gauge in right antecubital area, using aseptic technique. dh4 Blood collected. 17:13 XRAY CXR (1 view) In Process Unspecified. EDMS 18:37 Fer Muñiz is Hospitalizing Provider. ma2 19:17 Patient has correct armband on for positive identification. Bed in low position. Call jd3 light in reach. Side rails up X2. residential monitor on. Pulse ox on. NIBP on. 20:15 ultrasound at bedside. rr5 21:46 Greene cath inserted, using sterile technique, 16 Fr., by ny, balloon inflated, urine rr5 specimen collected. 22:04 No provider procedures requiring assistance completed. Patient admitted, IV remains in rr5 place. intact, No redness/swelling at site. Administered Medications: Discontinued: NS 0.9% 1000 ml IV at 125 ml/hr continuous 16:51 Drug: Rocephin 1 grams Route: IV; Rate: calculated rate; Site: right antecubital; jd3 16:53 Drug: morphine 4 mg {Note: pt reporting not true allergy, will monitor..} Route: IVP; jd3 Site: right antecubital; 16:54 Drug: Lasix 20 mg Route: IVP; Site: right antecubital; jd3 16:54 Drug: Zofran (Ondansetron) 4 mg Route: IVP; Site: right antecubital; jd3 16:55 Drug: SOLU-Medrol 125 mg Route: IVP; Site: right antecubital; jd3 18:30 Drug: AZITHromycin 500 mg Route: IVPB; Infused Over: 1 hrs; Site: right antecubital; jd3 18:30 Drug: NS 0.9% 1000 ml Route: IV; Rate: 125 ml/hr; Site: right antecubital; jd3 19:02 Not Given (IVF discontinued): d/c ivf 1 application IVP continuous jd3 19:25 Drug: Insulin Regular Human 5 units {Co-Signature: tala (Yee Salgado RN).} Route: IVP; rr5 Site: right antecubital; 20:25 Follow up: Response: No adverse reaction rr5 19:25 Drug: D50W 50 ml Route: IVP; Site: right antecubital; rr5 20:25 Follow up: Response: No adverse reaction rr5 19:30 Dru grams of (Calcium Gluconate 1 grams, NS 0.9% 100 ml) Route: IVPB; Infused Over: rr5 60 mins; Site: right antecubital; 20:35 Follow up: Response: No adverse reaction; IV Status: Completed infusion; IV Intake: rr5 100ml 19:47 Drug: Kayexalate 30 grams Route: PO; rr5 20:40 Follow up: Response: No adverse reaction rr5 Intake: 20:35 IV: 100ml; Total: 100ml. rr5 Outcome: 18:37 Decision to Hospitalize by Provider. maLyn 22:05 Admitted to Med/surg accompanied by tech, via stretcher, room 208, with oxygen, with rr5 chart, Report called to rahel 22:05 Condition: stable 22:05 Instructed on the need for admit. 22:20 Patient left the ED. rr5 Signatures: Dispatcher [employer] Nicol Romero Audri, RN RN aa5 Kemal Marcos RN RN Annmarie Newman MD MD ut2 Oleksandr Monae RN RN rr5 Tres Dejesus 4 Yee Salgado RN zb Corrections: (The following items were deleted from the chart) 15:05 14:50 Arm band placed on aa5 aa5
--- NOTE | 2020-04-26 18:39 | EDPHYS ---
Physician Documentation [facility] Name: Christy Priest Age: 65 yrs Sex: Female : 1955 Arrival Date: 04/26/2020 Time: 14:44 Bed 15 Private MD: ED Physician Annmarie Petesren HPI: 04/26 16:36 This 65 yrs old Female presents to ER via Wheelchair with complaints of ma2 Shortness Of Breath. 16:36 The patient has shortness of breath at rest. Duration: The symptoms are continuous. ma2 Associated signs and symptoms: Pertinent negatives: diaphoresis, fever, hemoptysis, nausea, numbness in extremities. Severity of symptoms: At their worst the symptoms were moderate in the emergency department the symptoms are unchanged. The patient has experienced similar episodes in the past. has been out of her medication for a "while", she states she is been short of breath for weeks, was sent here from wound care clinic she went there for follow up . Historical: - Allergies: 14:50 Augmentin; aa5 14:50 basil; aa5 14:50 Clindamycin; aa5 14:50 Morphine; aa5 14:50 Nitroglycerin; aa5 14:50 Tramadol HCl; aa5 14:50 Trazodone; aa5 14:50 Vancomycin; aa5 14:50 Vicodin; aa5 - PMHx: 14:50 ADD/ADHD; CHF; COPD; Diabetes - IDDM; ESRD; High Cholesterol; Hypertension; triple aa5 bypass; uterine cancer; - Immunization history:: Adult Immunizations unknown. - Social history:: Patient/guardian denies using alcohol, street drugs, The patient lives with family, Smoking status: unknown. - Family history:: not pertinent. ROS: 16:38 Constitutional: Negative for fever, chills, and weight loss. ma2 16:38 All other systems are negative. Exam: 18:08 Head/Face: Normocephalic, atraumatic. Eyes: Pupils equal round and reactive to light, ma2 extra-ocular motions intact. Lids and lashes normal. Conjunctiva and sclera are non-icteric and not injected. Cornea within normal limits. Periorbital areas with no swelling, redness, or edema. ENT: Nares patent. No nasal discharge, no septal abnormalities noted. Tympanic membranes are normal and external auditory canals are clear. Oropharynx with no redness, swelling, or masses, exudates, or evidence of obstruction, uvula midline. Mucous membranes moist. Neck: Trachea midline, no thyromegaly or masses palpated, and no cervical lymphadenopathy. Supple, full range of motion without nuchal rigidity, or vertebral point tenderness. No Meningismus. Chest/axilla: Normal chest wall appearance and motion. Nontender with no deformity. No lesions are appreciated. 18:08 Abdomen/GI: Soft, non-tender, with normal bowel sounds. No distension or tympany. No guarding or rebound. No evidence of tenderness throughout. Back: No spinal tenderness. No costovertebral tenderness. Full range of motion. Skin: Warm, dry with normal turgor. Normal color with no rashes, no lesions, and no evidence of cellulitis. MS/ Extremity: has multiple ulcers, on bilateral feet and left lower leg. diameter of largest ulcer is 1 cm, and 3 mm deep, no absceses or signs of induration or crepitations, all wounds are dry and non tender. Pulses equal, no cyanosis. Neurovascular intact. Full, normal range of motion. Neuro: Awake and alert, GCS 15, oriented to person, place, time, and situation. Cranial nerves II-XII grossly intact. Motor strength 5/5 in all extremities. Sensory grossly intact. Cerebellar exam normal. Normal gait. 18:08 Constitutional: The patient appears alert, awake, in obvious distress, moderately distressed. 18:08 Chest/axilla: Inspection: normal, Palpation: is normal, Axilla: are normal. 18:08 Cardiovascular: Rate: tachycardic, Rhythm: regular, Heart sounds: normal, JVD: is noted on the right, to 3 cm, Dialysis shunt: 18:08 ECG was reviewed by the Attending Physician. 18:08 Respiratory: mild respiratory distress is noted, Respirations: labored breathing, Breath sounds: rales, that are mild, are located in both bases, Respiratory rate: 22 Vital Signs: 14:46 BP 154 / 84; Pulse 104; Resp 26 S; Temp 99.5(O); Pulse Ox 98% on R/A; aa5 14:48 Pulse Ox 98% on 2 lpm NC; aa5 17:15 BP 135 / 84; Pulse 102; Resp 24 S; Pulse Ox 97% on 2 lpm NC; jd3 18:11 BP 135 / 75; Pulse 97; Resp 22 S; Pulse Ox 98% on 2 lpm NC; jd3 19:20 BP 119 / 78; Pulse 80; Resp 20; Temp 97.8; Pulse Ox 98% on 4 lpm NC; rr5 20:20 BP 121 / 69; Pulse 70; Resp 17; Pulse Ox 98% on 4 lpm NC; rr5 21:10 BP 117 / 80; Pulse 75; Resp 17; Pulse Ox 98% on 4 lpm NC; rr5 22:05 BP 125 / 70; Pulse 79; Resp 18; Temp 97.5; Pulse Ox 97% on 4 lpm NC; rr5 14:48 for comfort. aa5 MDM: 15:56 Patient medically screened. ma2 18:08 Differential diagnosis: Anemia Anxiety Reaction asthma, Bronchitis CHF exacerbation, ma2 reactive airway disease. Antibiotic administration: The patient is discharged and will get outpatient antibiotics. 18:36 Data reviewed: vital signs, nurses notes, EMS record. Post IV fluid administration ma2 reassessment for Sepsis: Sepsis focused reassessment complete. Focused assessment performed: April 26, 2020 at 18:36 Heart: Lungs: Capillary refill examination performed. Peripheral pulse evaluation performed. Skin examination performed. Current patient vital signs reviewed: Passive leg raise examination performed. Neuro: Cardio:. Counseling: I had a detailed discussion with the patient and/or guardian regarding: the historical points, exam findings, and any diagnostic results supporting the discharge/admit diagnosis, the presence of at least one elevated blood pressure reading (>120/80) during this emergency department visit, the need for further work-up and treatment in the hospital. Response to treatment: the patient's symptoms have markedly improved after treatment. 18:37 ED course: Patient has hyperkalemia received medical treatment in er for that. Also has ma2 elevated trop and creatinine both are baseline for her. patient has clinical CHF exacerbation cxr with pulmonary edema that is new and elevated bnp.. cxr also shows pleural effusion which is been on prior xr. patient has elevated wbc and lactate, clood cultures are sent. ua is still pending. she does have chronic LE would bilateral however the are not the likely source of infection. received BS antibiotics. will admit the patient pending UA. discussed with Hospitalist Mr. Draper. . 04/26 16:00 Order name: Blood Culture Adult (2) [facility] 04/26 16:00 Order name: BMP [facility] 04/26 16:00 Order name: CBC with Diff [facility] 04/26 16:00 Order name: Ckmb [facility] 04/26 16:00 Order name: CPK [facility] 04/26 16:00 Order name: Hepatic Function [facility] 04/26 16:00 Order name: Lipase [facility] 04/26 16:00 Order name: Magnesium [facility] 04/26 16:00 Order name: NT PRO-BNP [facility] 04/26 16:00 Order name: PT-INR; Complete Time: 17:03 [facility] 04/26 16:00 Order name: Ptt, Activated; Complete Time: 17:03 [facility] 04/26 16:00 Order name: Troponin (emerg Dept Use Only); Complete Time: 18:07 [facility] 04/26 16:01 Order name: Blood Culture [facility] 04/26 16:01 Order name: Basic Metabolic Panel; Complete Time: 18:07 [facility] 04/26 16:01 Order name: CBC with Automated Diff; Complete Time: 00:10 [facility] 04/26 16:01 Order name: CKMB Creatine Kinase MB; Complete Time: 18:07 [facility] 04/26 16:01 Order name: Creatine Phosphokinase; Complete Time: 18:07 [facility] 04/26 16:01 Order name: Liver (Hepatic) Function; Complete Time: 18:07 [facility] 04/26 16:01 Order name: Lipase; Complete Time: 18:07 [facility] 04/26 16:01 Order name: Magnesium; Complete Time: 18:07 [facility] 04/26 16:01 Order name: NT PRO-BNP; Complete Time: 18:07 [facility] 04/26 16:03 Order name: Strep; Complete Time: 18:07 [facility] 04/26 16:36 Order name: Lactate; Complete Time: 18:07 [facility] 04/26 16:50 Order name: CBC Smear Scan; Complete Time: 00:10 [facility] 04/26 17:14 Order name: Throat Culture [facility] 04/26 18:00 Order name: COVID-19/FLU A+B; Complete Time: 18:07 [facility] 04/26 18:35 Order name: Procalcitonin; Complete Time: 00:10 jr8 04/26 16:00 Order name: XRAY CXR (1 view); Complete Time: 18:07 fl04/26 16:00 Order name: EKG; Complete Time: 16:01 fl04/26 16:00 Order name: Cardiac monitoring; Complete Time: 16:24 fl04/26 16:00 Order name: EKG - Nurse/Tech; Complete Time: 16:24 fl04/26 16:00 Order name: IV Saline Lock; Complete Time: 16:54 fl04/26 16:00 Order name: Labs collected and sent; Complete Time: 16:54 fl04/26 16:00 Order name: O2 Per Protocol; Complete Time: 16:02 fl04/26 16:00 Order name: O2 Sat Monitoring; Complete Time: 16: fl04/26 16:03 Order name: Droplet/Contact Precautions; Complete Time: 16:10 fl04/26 17:02 Order name: Urine Dipstick-Ancillary (obtain specimen); Complete Time: 21:42 [facility] 04/26 18:50 Order name: US Extremity Venous Unilateral Ltd 04/26 19:22 Order name: Greene; Complete Time: 21:42 04/26 20:11 Order name: Lactate Sepsis 2 HR Follow-up; Complete Time: 00:10 EDMS 04/26 20:54 Order name: US; Complete Time: 00:10 EDMS 04/26 21:43 Order name: Urine Microscopic Only 04/26 21:43 Order name: Urine Culture 04/26 21:45 Order name: Urine Dipstick--Ancillary (enter results) 3 04/26 22:13 Order name: Urine Dipstick-Ancillary; Complete Time: 00:10 EDMS Administered Medications: Discontinued: NS 0.9% 1000 ml IV at 125 ml/hr continuous 16:51 Drug: Rocephin 1 grams Route: IV; Rate: calculated rate; Site: right antecubital; jd3 16:53 Drug: morphine 4 mg {Note: pt reporting not true allergy, will monitor..} Route: IVP; jd3 Site: right antecubital; 16:54 Drug: Lasix 20 mg Route: IVP; Site: right antecubital; jd3 16:54 Drug: Zofran (Ondansetron) 4 mg Route: IVP; Site: right antecubital; jd3 16:55 Drug: SOLU-Medrol 125 mg Route: IVP; Site: right antecubital; jd3 18:30 Drug: AZITHromycin 500 mg Route: IVPB; Infused Over: 1 hrs; Site: right antecubital; jd3 18:30 Drug: NS 0.9% 1000 ml Route: IV; Rate: 125 ml/hr; Site: right antecubital; jd3 19:02 Not Given (IVF discontinued): d/c ivf 1 application IVP continuous jd3 19:25 Drug: Insulin Regular Human 5 units {Co-Signature: tala (Yee Salgado RN).} Route: IVP; rr5 Site: right antecubital; 20:25 Follow up: Response: No adverse reaction rr5 19:25 Drug: D50W 50 ml Route: IVP; Site: right antecubital; rr5 20:25 Follow up: Response: No adverse reaction rr5 19:30 Dru grams of (Calcium Gluconate 1 grams, NS 0.9% 100 ml) Route: IVPB; Infused Over: rr5 60 mins; Site: right antecubital; 20:35 Follow up: Response: No adverse reaction; IV Status: Completed infusion; IV Intake: rr5 100ml 19:47 Drug: Kayexalate 30 grams Route: PO; rr5 20:40 Follow up: Response: No adverse reaction rr5 Disposition: 04/26/20 18:37 Hospitalization ordered by Fer Muñiz for Inpatient Admission. Preliminary diagnosis are Severe sepsis without septic shock, Systolic (congestive) heart failure. - Bed requested for Telemetry/MedSurg (Inpatient). - Status is Inpatient Admission. rr5 - Condition is Stable. - Problem is new. - Symptoms are unchanged. Signatures: Dispatcher [employer] EDMS Pooja Richardson, RN RN aa5 Hung Draper PA PA jr8 Jennifer Augustin RN RN tl1 Kemal Marcos RN RN jd3 Annmarie Petersen MD MD ma2 Oleksandr Monae RN RN rr5 Yee edgar Corrections: (The following items were deleted from the chart) 17:04 16:03 Influenza Screen (A \\T\\ B)+BA.LAB.BRZ ordered. EDMS EDMS 17:04 16:04 Influenza Screen (A ordered. EDMS EDMS 18:47 18:08 Abdomen/GI: Soft, non-tender, with normal bowel sounds. No distension or tympany. ma2 No guarding or rebound. No evidence of tenderness throughout. Back: No spinal tenderness. No costovertebral tenderness. Full range of motion. Skin: Warm, dry with normal turgor. Normal color with no rashes, no lesions, and no evidence of cellulitis. MS/ Extremity: Pulses equal, no cyanosis. Neurovascular intact. Full, normal range of motion. Neuro: Awake and alert, GCS 15, oriented to person, place, time, and situation. Cranial nerves II-XII grossly intact. Motor strength 5/5 in all extremities. Sensory grossly intact. Cerebellar exam normal. Normal gait. ma2 20:43 18:37 Hospitalization Ordered by Fer Muñiz for Inpatient Admission. Preliminary tl1 diagnosis is Severe sepsis without septic shock; Systolic (congestive) heart failure. Bed requested for Telemetry/MedSurg (Inpatient). Status is Inpatient Admission. Condition is Stable. Problem is new. Symptoms are unchanged. ma2 22:20 20:43 04/26/2020 18:37 Hospitalization Ordered by Fer Muñiz for Inpatient rr5 Admission. Preliminary diagnosis is Severe sepsis without septic shock; Systolic (congestive) heart failure. Bed requested for Telemetry/MedSurg (Inpatient). Status is Inpatient Admission. Condition is Stable. Problem is new. Symptoms are unchanged. tl1
[2020-04-26 19:26] LABS: Blood Morphology Comment NOT SEEN (NOT SEEN); Platelet Estimate ADEQ; White Blood Cell Scan OK (OK)
[2020-04-26] MEDS ORDERED: INSULIN -REGULAR HUMAN 50 UNIT/0.5 ML ML ONE (19:27)
[2020-04-26] MEDS ORDERED: SOD POLYSTYREN SUL 15 GM/60 ML UCUP ONE (19:28)
[2020-04-26] MEDS ORDERED: D50W 25 GM/50 ML SYRINGE IV ONE (19:28)
[2020-04-26] MEDS ORDERED: CALCIUM GLUCONATE 1 GM IVPB 1 GM/50 ML BAG IV ONE (19:28)
--- NOTE | 2020-04-26 20:53 | RAD REPORT ---
EXAM DESCRIPTION: USExtremity Venous Uni Ltd04/26/2020 8:31 pm CLINICAL HISTORY: Right leg pain and swelling. COMPARISON: None. FINDINGS: Right common femoral, superficial femoral, popliteal and right posterior tibial veins are compressible and demonstrate augmentation. Doppler demonstrates good flow. IMPRESSION: No evidence of deep venous thrombosis involving the right lower extremity.
[2020-04-26 22:13] LABS: Urine Blood 1+ (NEG); Urine Glucose NEGATIVE (NEG); Urine Protein 3+ (NEG); Urine Specific Gravity 1.025 (1.005-1.030); Urine pH 7.5 (5.0-7.0)
[2020-04-26 22:27] LABS: Urine Bacteria 20-50 /HPF (<20); Urine Mucus 2+ /HPF (NONE SEEN)
[2020-04-26] MEDS ORDERED: IPRATROPIUM BROM 0.5MG/2.5ML NEB PRN (22:49)
[2020-04-26] MEDS ORDERED: ALBUTEROL 2.5 MG/3 ML NEB SOL NEB PRN (22:49)
[2020-04-26] MEDS ORDERED: HYDRALAZINE HCL 20 MG/ML VIAL IV PRN (22:49)
[2020-04-26] MEDS ORDERED: ONDANSETRON 4 MG/2 ML VIAL IV PRN (22:49)
[2020-04-26 23:27] LABS: Arterial Blood Carboxyhemoglob 2.1 % (0-1.5); Blood Gas Oxyhemoglobin 93.3 % (94-97); Blood O2 Saturation 96.1 % (92-98.5)
--- NOTE | 2020-04-26 23:34 | P.HP ---
Certification for Inpatient Patient admitted to: Inpatient With expected LOS: >2 Midnights Patient will require the following post-hospital care: None Practitioner: I am a practitioner with admitting privileges, knowledge of patient current condition, hospital course, and medical plan of care. Services: Services provided to patient in accordance with Admission requirements found in Title 42 Section 412.3 of the Code of Federal Regulations <Tushar Draper - Last Filed: 04/26/20 23:22> Patient History Date of Service: 04/26/20 Reason for admission: Congestive heart failure, ESRD on HD, leukocytosis History of Present Illness: Christy Priest is a 65 yo F with CHF, COPD, T2DM, ESRD on HD T//Fri, HLD, HTN, CAD s/p CABG, and h/o of uterine cancer here today for increased SOB over the past few weeks. She was sent here from wound care clinic where she went for follow-up today for healing leg wounds. She reports she has been out of her medications for "awhile" and thinks that she went to dialysis last week but cannot remember if she went yesterday (04/25/20). Per Dr. Dickey, she is still producing urine. Patient is a poor historian. Unsure as of yet how close her mental status is to baseline function. Received azithromycin and ceftriaxone, lasix, solu-medrol in the ER. Per previous admission in 01/2020, she was diagnos ed with a UTI but was unable to afford antibiotics for treatment. Urine dip today was dirty. Pending urine jo ann and culture. Na 133, K 5.3, Cl 99, HCO3 25, BUN 18, Cr 2.71, and Glu 76. Hb/Hct 10/37.5, WBC 17.5, Plt 250. Lac 9.2. BNP 72,569. Troponins 0.06 (her troponins are elevated at baseline). Home medications list reviewed: No - Past Medical/Surgical History Has patient received pneumonia vaccine in the past: No Diabetic: Yes -: COPD -: Hypertension -: CAD, CABG x4 vessels (August 2017) -: Diabetes mellitus type 2, insulin-dependent -: Chronic combined systolic/diastolic CHF -: Uterine cancer status post hysterectomy -: Chronic renal disease, stage IV -: TB as a child - Negative 2018 -: Hyperlipidemia -: Iron deficiency anemia -: WEST -: Likely obstructive sleep apnea -: Rectal surgery -: Hysterectomy -: Cholecystectomy -: Gastric surgery -: Appendectomy -: CABG x4 vessel -: RLE Femoral popliteal bypass -: Left great toe amputation Psychosocial/ Personal History: The patient is a . Her son lives with her. She has 3 children. - Family History Brother -: Heart disease, Hypertension, Cancer Notes: Father -: Heart disease, Lung disease, Cancer Notes: - Prostate surgery - Hemorrhage Mother -: GI disease Notes: Sister -: Heart disease Notes: - Respiratory failure - Social History Smoking Status: Unknown if ever smoked Counseled patient to stop smoking for: less than 10 minutes Smoking therapy provided: No Alcohol use: No CD- Drugs: No Caffeine use: Yes Place of Residence: Home <Tushar Draper - Last Filed: 04/26/20 23:22> Date of Service: 04/27/20 <samaria sifuentes - Last Filed: 04/27/20 12:56> Allergies morphine Allergy (Severe, Verified 04/26/20 23:39) Anaphylaxis vancomycin Allergy (Intermediate, Verified 04/26/20 23:39) Shortness of breath basil Allergy (Verified 04/26/20 23:39) Nausea/Vomiting tramadol Allergy (Verified 04/26/20 23:39) Nausea/Vomiting trazodone Allergy (Verified 04/26/20 23:39) Nausea/Vomiting nitroglycerin Adverse Reaction (Mild, Verified 04/26/20 23:39) Nausea/Vomiting Home Medications: Buproprion S.r. [Wellbutrin Sr*] 1 tab PO BID 02/27/20 Clopidogrel Bisulfate [Plavix*] 75 mg PO DAILY 02/27/20 Collagenase [Santyl Ointment*] 1 appl TOP DAILY 02/27/20 Fluticasone [Flovent Hfa 110*] 2 puff IH DAILY 02/27/20 Hydralazine [Apresoline*] 2 tab PO TID 02/27/20 Nifedipine [Nifedipine ER] 1 tab PO DAILY 02/27/20 allopurinoL [Allopurinol] 1 tab PO BID 02/27/20 Epoetin [Retacrit] 10,000 unit IV EVERY HD vial 03/02/20 Gabapentin [Neurontin*] 100 mg PO TID #90 cap 03/02/20 Patrice [Patrice*] 1 pkt PO BID #60 powd.pack 03/02/20 Medihoney [Medihoney Woundcare Gel*] 1 appl TOP DAILY #1 tube 03/02/20 Review of Systems General: Unremarkable Eyes: Unremarkable ENT: Unremarkable Respiratory: Shortness of Breath, As per HPI Cardiovascular: Orthopnea, Edema Gastrointestinal: Unremarkable Genitourinary: Unremarkable Musculoskeletal: Unremarkable Integumentary: As per HPI Neurological: As per HPI Lymphatics: Unremarkable <Tushar Draper - Last Filed: 04/26/20 23:22> Physical Examination - Vital Signs Temperature: 97.1 F Blood Pressure: 155/74 Pulse: 75 Respirations: 16 Pulse Ox (%): 99 - Physical Exam General: Disheveled, Moderate distress, Confused, Obese HEENT: Atraumatic, Normocephalic, PERRLA, EOMI Neck: Supple, JVD distended Respiratory: Normal air movement, Crackles/rales (in bilateral lower lobes) Cardiovascular: Regular rate/rhythm, Edema (in RL>LL, anasarca noted ) Capillary refill: <2 Seconds Gastrointestinal: Normal bowel sounds, Other (anasarca) Musculoskeletal: Swelling (RL>LL edema) Integumentary: Other (wounds on bilateral lower legs healing well ) Neurological: Abnormal speech, Abnormal affect (unsure how close mental status is to baseline functioning ) Lymphatics: No axilla or inguinal lymphadenopathy - Studies Laboratory Data (last 24 hrs) 04/26/20 16:30: PT 15.6 H, INR 1.33, APTT 31.6 04/26/20 16:30: WBC 17.50 H, Hgb 10.0 L, Hct 32.5 L, Plt Count 250 04/26/20 16:30: Sodium 133 L, Potassium 5.3 H, BUN 18, Creatinine 2.71 H, Glucose 76, Magnesium 1.8, Total Bilirubin 0.5, AST 16, ALT 8 L, Alkaline Phosphatase 161 H, Lipase 49 L Microbiology Data (last 24 hrs): 04/26/20 16:35 Throat Group A Streptococcus Rapid Screen - Final <Tushar Draper - Last Filed: 04/26/20 23:22> - Studies Laboratory Data (last 24 hrs) 04/26/20 16:30: PT 15.6 H, INR 1.33, APTT 31.6 04/26/20 16:30: WBC 17.50 H, Hgb 10.0 L, Hct 32.5 L, Plt Count 250 04/26/20 16:30: Sodium 133 L, Potassium 5.3 H, BUN 18, Creatinine 2.71 H, Glucose 76, Magnesium 1.8, Total Bilirubin 0.5, AST 16, ALT 8 L, Alkaline Phosphatase 161 H, Lipase 49 L Microbiology Data (last 24 hrs): 04/26/20 16:35 Throat Group A Streptococcus Rapid Screen - Final <samaria sifuentes - Last Filed: 04/27/20 12:56> Assessment and Plan - Problems (Diagnosis) (1) Dyspnea Onset Date: 04/28/15 Current Visit: Yes Status: Acute Plan: Patient reports worsening shortness of breath as main symptom. Possibly due to CHF exacerbation vs volume overload from missing HD vs COPD exacerbation. Will be on nasal canula. Futher workup detailed below. Qualifiers: Dyspnea type: shortness of breath Qualified Code(s): R06.02 - Shortness of breath; R06.00 - Dyspnea, unspecified; R06.01 - Orthopnea (2) ESRD (end stage renal disease) on dialysis Onset Date: ~04/26/20 Current Visit: Yes Status: Chronic Plan: Patient on Friday//Friday HD schedule but cannot report when she last went. Patient does make urine. - Urgent HD tomorrow (04/27/2020) - Nephrology consult placed (3) CHF (congestive heart failure) Onset Date: 04/28/15 Current Visit: Yes Status: Acute Plan: Fluid overload possibly due to CHF exacerbation - Lasix 80 mg BID - Cardiology consult placed - ECHO done on last admission showing HFpEF and mitral and triscuspid valve regurgitation Qualifiers: Heart failure type: diastolic Heart failure chronicity: acute on chronic Qualified Code(s): I50.33 - Acute on chronic diastolic (congestive) heart failure (4) COPD (chronic obstructive pulmonary disease) Onset Date: 02/04/17 Current Visit: No Status: Chronic Plan: acute on chronic SOB and leukocytosis could be due to infectious COPD exacerbation - started on nasal canula - given azithromycin 500mg and ceftriaxone 1g in the Er - will continue azithromycin - will obtain ABG to evaluate acid-base status Qualifiers: COPD type: chronic bronchitis (5) Volume overload Onset Date: ~04/26/20 Current Visit: Yes Status: Acute Plan: Patient presenting with anasarca and pitting edema in bilateral lower extremities. Will receive dialysis tomorrow 04/27/2020. Will receive lasix 80 mg BID IV. Futher workup listed above. Qualifiers: Hypervolemia type: other Qualified Code(s): E87.79 - Other fluid overload (6) Diabetes mellitus Onset Date: 10/03/17 Current Visit: Yes Status: Chronic Plan: BG <180 on presentation so will continue to monitor with blood glucose checks before starting sliding scale insulin. Qualifiers: Diabetes mellitus type: type 2 Diabetes mellitus complication status: with kidney complications Diabetes mellitus complication detail: with chronic kidney disease Chronic kidney disease stage: on chronic dialysis (7) Hypertension Current Visit: Yes Status: Chronic Plan: HTN well controlled 135/75 on presentation. Given hydralazine with paramaters of BP >160/110. Qualifiers: Hypertension type: essential hypertension Qualified Code(s): I10 - Essential (primary) hypertension (8) Leukocytosis Onset Date: ~04/26/20 Current Visit: Yes Status: Acute Plan: unclear of source of leukocytosis - COPD exacerbation vs UTI vs other source - blood cultures drawn - bender catheter for urine culture/micro - CXR did not reveal a consolidation Qualifiers: Leukocytosis type: unspecified Qualified Code(s): D72.829 - Elevated white blood cell count, unspecified (9) Localized swelling of both lower legs Onset Date: ~04/26/20 Current Visit: Yes Status: Acute Plan: Leg swelling in R leg worse than L leg, however doppler ultrasound showed no evidence of DVT. Swelling likely due to fluid overload. Discharge Plan: Home Plan to discharge in: Greater than 2 days - Advance Directives Does patient have a Living Will: Yes Does patient have a Durable POA for Healthcare: Yes - Code Status/Comfort Care Code Status Assessed: Yes (full code ) Code Status: Full Code Critical Care: No Time Spent Managing Pts Care (In Minutes): 70 <Tushar Draper - Last Filed: 04/26/20 23:22> Physician Review: Patient Assessed, Agree with Above Assessment and Plan Physician Review Additional Text: Patient seen and examined. She currently has no complain She has significant anasarca and ascites. Leukocytosis of unknown cause Noncompliance with medical treatment. Nephrology consulted for hemodialysis. Patient started on IV Lasix 80 mg b.i.d. IV Zosyn. <samaria sifuentes - Last Filed: 04/27/20 12:56>
[2020-04-27] MEDS: HEPARIN 5000 UNIT/ML 1 ML VIAL SQ SCH ×3 (00:50→21:56)
[2020-04-27] MEDS: HYDROCODONE/APAP 5/325 MG TAB PO PRN ×3 (00:51→22:11)
--- NOTE | 2020-04-27 01:13 | P.INFCA ---
Sepsis Focused Assessment - Sepsis Screen Result Severe Sepsis: Positive - Evaluation Current stage of sepsis: Severe sepsis - Vital Signs Reviewed: Yes Temperature: 97.1 F Heart rate: 75 Blood Pressure: 155/74 Respiratory Rate: 16 O2 Sat by Pulse Oximetry: 99 - Examination Date exam was performed: 04/26/20 Time exam was performed: 20:00 Heart: Regular rate/rhythm Lungs: Rales Peripheral pulses: 2+ Slightly diminished Peripheral pulse location: Radial Capillary refill: <2 Seconds Skin examination: Normal turgor
[2020-04-27 03:15] LABS: Absolute Lymphocytes (CBC) 1.1 K/uL (0.7-4.9); Basophils % 0.1 % (0-1.3); Hematocrit 29.8 % (36.0-45.0); Lymphocytes % 4.8 % (15.3-44.8); MPV 7.4 fL (7.6-11.3)
[2020-04-27 04:05] LABS: Albumin 2.1 g/dL (3.4-5.0); Phosphorus 5.4 mg/dL (2.5-4.9); Potassium 4.8 mmol/L (3.5-5.1)
[2020-04-27 04:10] LABS: Thyroid Stimulating Hormone 5.54 uIU/mL (0.360-3.740)
[2020-04-27 04:52] LABS: Blood Morphology Comment NOT SEEN (NOT SEEN); Platelet Estimate ADEQ
[2020-04-27] MEDS ORDERED: PIPER/TAZO/NS 2.25gm 2.25 GM/50 ML BAG ONE (05:49)
[2020-04-27] MEDS: PIPER/TAZO/NS 2.25gm 2.25 GM/50 ML BAG IVPB SCH ×2 (06:28→17:01)
[2020-04-27] MEDS ORDERED: CEFEPIME/SWI 1gm 10 ML IV SCH (09:00)
[2020-04-27] MEDS ORDERED: CEFEPIME 1 GM/VIAL IV SCH (09:00)
[2020-04-27] MEDS: FUROSEMIDE 40 MG/4 ML VIAL IV SCH ×2 (09:45→17:01)
[2020-04-27] MEDS ORDERED: DIPHENHYDRAMINE 50 MG/ML VIAL IV ONE ×2 (11:14→22:41)
--- NOTE | 2020-04-27 12:58 | P.PN ---
Date of Service: 04/27/20 Patient seen and examined. Patient to undergo hemodialysis today. Continue IV Lasix. Follow blood cultures. Continue IV Zosyn Monitor CBC to follow leukocytosis.
--- NOTE | 2020-04-27 18:20 | P.PN ---
Subjective Date of Service: 04/27/20 Chief Complaint: Congestive heart failure, ESRD on HD, leukocytosis Patient has no complain. She has significant anasarca. Physical Examination - Vital Signs Temperature: 96.8 F Blood Pressure: 133/76 Pulse: 72 Respirations: 128 Pulse Ox (%): 100 - Physical Exam General: In no apparent distress, Oriented x3, Other (Anasarca) Neck: JVD not distended Respiratory: Clear to auscultation bilaterally, Normal air movement Cardiovascular: Normal S1 S2, Edema (3+ bilateral lower extremity pitting edema, facial edema), Irregular heart rate/rhythm Gastrointestinal: No tenderness, Distended, Ascites Musculoskeletal: Swelling (Bilateral lower extremities) Integumentary: Other (Multiple bruises on bilateral upper extremities) Neurological: Normal strength at 5/5 x4 extr, Cranial nerves 3-12 intact - Studies Microbiology Data (last 24 hrs): 04/26/20 16:35 Throat Group A Streptococcus Rapid Screen - Final Assessment And Plan - Current Problems (Diagnosis) (1) Anasarca Current Visit: Yes Status: Acute (2) Diabetes mellitus Onset Date: 10/03/17 Current Visit: Yes Status: Chronic Qualifiers: Diabetes mellitus type: type 2 Diabetes mellitus complication status: with kidney complications Diabetes mellitus complication detail: with chronic kidney disease Chronic kidney disease stage: on chronic dialysis (3) ESRD (end stage renal disease) on dialysis Onset Date: ~04/26/20 Current Visit: Yes Status: Chronic (4) Hypertension Current Visit: Yes Status: Chronic Qualifiers: Hypertension type: essential hypertension Qualified Code(s): I10 - Essential (primary) hypertension (5) Diastolic CHF, acute Current Visit: No Status: Acute (6) Elevated troponin Current Visit: Yes Status: Acute (7) Elevated troponin Onset Date: 09/09/16 Current Visit: No Status: Resolved (8) UTI (urinary tract infection) Current Visit: No Status: Resolved Qualifiers: Urinary tract infection type: acute cystitis Hematuria presence: without hematuria Qualified Code(s): N30.00 - Acute cystitis without hematuria - Plan Patient plan for hemodialysis today. Nephrology to see her. Elevated troponin likely secondary to decreased clearance from ESRD. Patient denies any chest pain. Continue IV Lasix. IV Zosyn for UTI. Follow urine culture and blood cultures. Monitor CBC and blood chemistry. Physician Review: Patient Assessed, Agree with Above Assessment and Plan Physician Review Additional Text: Patient seen and examined. She currently has no complain She has significant anasarca and ascites. Leukocytosis of unknown cause Noncompliance with medical treatment. Nephrology consulted for hemodialysis. Patient started on IV Lasix 80 mg b.i.d. IV Zosyn.
[2020-04-27] MEDS: BUDESONIDE 0.5 MG/2 ML NEB IH SCH (20:00)
[2020-04-27] MEDS: JUVEN PACKET PO SCH (21:00)
[2020-04-27] MEDS: allopurinoL 100 MG TAB PO SCH (21:00)
[2020-04-27] MEDS: GABAPENTIN 100 MG CAP PO SCH (21:57)
[2020-04-27] MEDS: BUPROPRION HCL S.R. 150MG TAB PO SCH (21:57)
[2020-04-27] MEDS: HYDRALAZINE HCL 25 MG TABLET PO SCH (21:57)
--- NOTE | 2020-04-27 23:06 | CON ---
Date of Consultation: 04/27/2020 Reason For Consultation: End-stage renal disease, over volume, anasarca. History Of Present Illness: This is a pleasant 65-year-old female, well known to me from the office with dialysis, with significant past medical history of end-stage renal disease, recently started on dialysis, coronary artery disease complicated with congestive heart failure, diabetes complicated with neuropathy and nephropathy, COPD, hyperlipidemia, the patient came to the hospital complaining of generalized fatigue, shortness of breath with increased leg swelling. The patient apparently ran out of her medication for the whole week. According to the patient for the last few days, patient had frequency going to the bathroom but decrease in her urine output. The patient's primary workup in the ER found severe leukocytosis with UTI and over volume with marginal hyperkalemia. For that reason, we have been consulted. We took the patient for urgent dialysis and to be challenged. Apparently, patient also visits with vascular to establish access and on the preparation for the access. Plavix has been discontinued. Workup in the ER show elevation of troponin, non-ST elevation OR. Past Medical History: Includes, 1. COPD. 2. Hypertension. 3. Coronary artery disease status post CABG. 4. Diabetes. 5. End-stage renal disease, on hemodialysis, TTS. 6. Hyperlipidemia. 7. Iron deficiency anemia. Past Surgical History: Includes CABG, hysterectomy, cholecystectomy, rectal surgery, great toe amputation. Family History: Positive for hypertension, diabetes and cancer. Social History: Active smoker. Denied alcohol. Denied drugs abuse. Allergies: TO MORPHINE, TRAMADOL, TRAZODONE, NITROGLYCERIN. Home Medications: Include tylenol, Plavix,hydralazine, allopurinol, nifedipine, Epogen, and gabapentin. Review of Systems: Head and Neck: No red eye. No ear pain. GI: No nausea. No vomiting. : Has polyuria. Has dysuria. 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 Respiratory: Has shortness of breath. Cardiovascular: Has leg swelling. Endocrine: No polydipsia. Skin: No rash. Physical Examination: Vital Signs: When I saw the patient, patient is lying in bed. Blood pressure of 146/67, pulse of 88. Chest: Crackles bilateral. Heart: S1, S2. Systolic murmur. Abdomen: Soft, nontender. Extremities: +3 edema, erythema on the feet. Neuro: Alert, oriented, no focality. Laboratory Data: Lab data for the patient, WBC 24.1, H and H 8.9/29.8, platelet of 169. Sodium 133, potassium 4.8, bicarb 26, BUN 22, creatinine 2.9, calcium 8.1, phosphorus 5.4. Troponin 4.8. BNP 105. TSH 5.4. Assessment And Plan: 1. End-stage renal disease, over volume, nonoliguric. Continue current diuresis. We will utilize blood pressure for ultrafiltration. We will do dialysis on low blood flow to avoid any cardiac stress given the non-ST elevation OR and the patient is going to be dialyzed on low-potassium bath to correct the hyperkalemia. 2. We will do extra session of dialysis tomorrow and day after as patient is going to be undergoing cardiac cath with contrast and the patient over volume. 3. Over volume. We will dialyze the patient daily to establish better volume control. 4. Hyperkalemia. The patient is going to be dialyzed on low-potassium bath. 5. Anemia of chronic kidney disease. Continue BRONWYN. 6. Non-ST elevation myocardial infarction. Plan for cardiac cath by Cardiology tomorrow. We will follow up. 7. Congestive heart failure with exacerbation as above. 8. Diabetes as by hospitalist. 9. Leukocytosis, possible secondary to urinary tract infection/cellulitis. The patient was started on antibiotic. We will follow up culture. I am going to go ahead and follow up the urine culture and get the blood culture through the [facility] and we will follow up. 10. Non ST-elevation OR attestation and troponin unfortunately patient stopping aspirin for a whole week as body the instruction of vascular for creation of AV fistula discussed the case with cardiology present for cardiac catheterization with possible stenting Would present for dialysis also passed out cardiac catheterization as patient is to have residual kidney function had still good urine output to avoid further contrast induce ARTURO for the residual kidney function Thank you Dr. Muñzi, for allowing us to participate in the care of your patient. time spend discussing with the patient face to face , placing order , discusse with the patient and other steam table associate including hospitalist 75 min. GAMA Voice ID: [id number] Report ID: [id number] AZUCENA
[2020-04-28] MEDS: FAMOTIDINE 20 MG TAB PO SCH ×3 (00:18→19:08)
[2020-04-28] MEDS: PIPER/TAZO/NS 2.25gm 2.25 GM/50 ML BAG IVPB SCH ×2 (05:11→18:07)
[2020-04-28 05:44] LABS: Absolute Lymphocytes (CBC) 1.9 K/uL (0.7-4.9); Basophils % 0.1 % (0-1.3); Hematocrit 30.8 % (36.0-45.0); Lymphocytes % 13.7 % (15.3-44.8); MPV 7.5 fL (7.6-11.3)
[2020-04-28] MEDS: hydrOXYzine HCL 25 MG TAB PO PRN ×2 (05:54→19:08)
[2020-04-28 06:01] LABS: Albumin 2.2 g/dL (3.4-5.0); Phosphorus 5.4 mg/dL (2.5-4.9); Potassium 4.3 mmol/L (3.5-5.1)
--- NOTE | 2020-04-28 07:50 | EKG ---
Test Date: 2020-04-26 Test Time: 14:56:02 Maintenance Team Member: SHANICE MEASUREMENT RESULTS: Intervals: Rate: 105 SC: 156 QRSD: 84 QT: 384 QTc: 507 Prosper: P: 83 SC: 156 QRS: 154 T: 110 INTERPRETIVE STATEMENTS: Sinus tachycardia Low voltage QRS Septal infarct, age undetermined Lateral infarct, age undetermined Inferior injury pattern ACUTE MN / STEMI Consider right ventricular involvement in acute inferior infarct Abnormal ECG Compared to ECG 03/09/2020 22:28:09 Low QRS voltage now present Sinus bradycardia no longer present Myocardial infarct finding still present Electronically Signed On 04-28-20 07:49:22 SOX ANALYST by Taj Raymond
[2020-04-28] MEDS: BUDESONIDE 0.5 MG/2 ML NEB IH SCH ×2 (08:00→20:00)
[2020-04-28] MEDS: allopurinoL 100 MG TAB PO SCH ×2 (09:00→21:47)
[2020-04-28] MEDS: COLLAGENASE 30 GM OINTMENT TOP SCH (09:40)
[2020-04-28] MEDS: BUPROPRION HCL S.R. 150MG TAB PO SCH ×2 (09:41→21:47)
[2020-04-28] MEDS: HYDRALAZINE HCL 25 MG TABLET PO SCH ×3 (09:41→21:45)
[2020-04-28] MEDS: FUROSEMIDE 40 MG/4 ML VIAL IV SCH ×2 (09:42→18:26)
[2020-04-28] MEDS: NIFEDIPINE XL 60 MG TABLET PO SCH (09:42)
[2020-04-28] MEDS: GABAPENTIN 100 MG CAP PO SCH ×3 (09:42→21:46)
[2020-04-28] MEDS: SMZ./TMP. 800/160 MG TABLET PO SCH ×2 (09:43→21:46)
[2020-04-28] MEDS: HEPARIN 5000 UNIT/ML 1 ML VIAL SQ SCH ×2 (09:43→21:00)
[2020-04-28] MEDS: CLOPIDOGREL 75 MG TABLET PO SCH (09:43)
[2020-04-28] MEDS: JUVEN PACKET PO SCH ×2 (09:44→21:00)
[2020-04-28] MEDS: HYDROCODONE/APAP 5/325 MG TAB PO PRN ×2 (12:23→18:18)
[2020-04-28] MEDS: EPOETIN 4,000 UNIT/ML VIAL IV SCH (15:45)
--- NOTE | 2020-04-28 17:07 | P.PN ---
Subjective Date of Service: 04/28/20 Chief Complaint: Congestive heart failure, ESRD on HD, leukocytosis Patient states she feels better. Her anasarca has improved since dialysis yesterday. Physical Examination - Vital Signs Temperature: 97.6 F Blood Pressure: 139/69 Pulse: 65 Respirations: 17 Pulse Ox (%): 98 - Physical Exam General: Alert, In no apparent distress, Oriented x3 Respiratory: Clear to auscultation bilaterally, Normal air movement Cardiovascular: Normal S1 S2, Edema (2+ bilateral lower extremity), Irregular heart rate/rhythm Gastrointestinal: Normal bowel sounds, Soft and benign, Distended, Ascites Neurological: Other (No focal motor deficit) - Studies Microbiology Data (last 24 hrs): 04/26/20 16:35 Throat Culture & Sensitivity - Final NORMAL UPPER RESPIRATORY BENJAMIN GROWN. Assessment And Plan - Current Problems (Diagnosis) (1) Anasarca Current Visit: Yes Status: Acute (2) Diabetes mellitus Onset Date: 10/03/17 Current Visit: Yes Status: Chronic Qualifiers: Diabetes mellitus type: type 2 Diabetes mellitus complication status: with kidney complications Diabetes mellitus complication detail: with chronic kidney disease Chronic kidney disease stage: on chronic dialysis (3) ESRD (end stage renal disease) on dialysis Onset Date: ~04/26/20 Current Visit: Yes Status: Chronic (4) Hypertension Current Visit: Yes Status: Chronic Qualifiers: Hypertension type: essential hypertension Qualified Code(s): I10 - Essential (primary) hypertension (5) Diastolic CHF, acute Current Visit: No Status: Acute (6) Elevated troponin Current Visit: Yes Status: Acute (7) Elevated troponin Onset Date: 09/09/16 Current Visit: No Status: Resolved (8) UTI (urinary tract infection) Current Visit: No Status: Resolved Qualifiers: Urinary tract infection type: acute cystitis Hematuria presence: without hematuria Qualified Code(s): N30.00 - Acute cystitis without hematuria - Plan Continue hemodialysis per nephrology Elevated troponin likely secondary to decreased clearance from ESRD. Continue IV Lasix per nephrology. Continue IV Zosyn for UTI. All cultures: No growth to date. Monitor CBC and blood chemistry. Continue home medications. Continue home antihypertensives. Physician Review: Patient Assessed, Agree with Above Assessment and Plan Physician Review Additional Text: Patient seen and examined. She currently has no complain She has significant anasarca and ascites. Leukocytosis of unknown cause Noncompliance with medical treatment. Nephrology consulted for hemodialysis. Patient started on IV Lasix 80 mg b.i.d. IV Zosyn.
--- NOTE | 2020-04-29 00:07 | PN ---
Date of Progress Note: 04/28/2020 Ms. Priest is a 65-year-old woman, who was seen by Dr. García yesterday for non-ST elevation myocardial infarction. She has a history of coronary artery disease. She is status post circumflex stent in t he near past. She came in with volume overload. She has end-stage renal disease, on hemodialysis. She came in with hyperkalemia, anemia, congestive heart failure exacerbation, diabetes, leukocytosis as well as elevated troponin consistent with non-ST elevation myocardial infarction. Today, the irene ent is not very able to lay flat for a heart catheterization and we decided to postpone her heart cat heterization to early next week after dialysis by Nephrology. She also has a history of COPD. She r ecently had her Plavix discontinued to get vascular access to prepare her for dialysis. Her Plavix s hould have never been stopped. She was on it for her recent stent for less than 2 months before her Plavix were held for a week. Nevertheless, a catheterization is indicated to make sure her stent rem ains open. She is pain-free. We will continue treatment for her fluid overload as per Renal. Thao ryan to follow her. Continue her present medical regimen and plan for a catheterization on Friday. S he has already had a venous Doppler of both extremities, which were negative. Her EKG showed myocard ial infarction. Her chest x-ray showed postsurgical changes from an old CABG. We will continue to f moniquelow her along with Nephrology and plan for a catheterization on Friday. JAMIA/AUSTYNL Voice ID: [id number] Report ID: [id number]
[2020-04-29] MEDS: hydrOXYzine HCL 25 MG TAB PO PRN ×2 (02:39→17:06)
[2020-04-29] MEDS: HYDROCODONE/APAP 5/325 MG TAB PO PRN ×3 (03:28→17:06)
[2020-04-29 05:47] LABS: Absolute Lymphocytes (CBC) 1.8 K/uL (0.7-4.9); Basophils % 0.4 % (0-1.3); Lymphocytes % 20.1 % (15.3-44.8); MPV 7.6 fL (7.6-11.3); RBC Red Blood Cell Count 3.28 M/uL (3.86-4.86)
[2020-04-29 06:01] LABS: Phosphorus 3.7 mg/dL (2.5-4.9); Potassium 3.9 mmol/L (3.5-5.1)
[2020-04-29] MEDS: PIPER/TAZO/NS 2.25gm 2.25 GM/50 ML BAG IVPB SCH ×2 (06:07→17:06)
[2020-04-29] MEDS: BUDESONIDE 0.5 MG/2 ML NEB IH SCH ×2 (08:00→20:00)
[2020-04-29] MEDS: FAMOTIDINE 20 MG TAB PO SCH ×2 (08:42→22:07)
[2020-04-29] MEDS: FUROSEMIDE 40 MG/4 ML VIAL IV SCH ×2 (08:42→17:06)
[2020-04-29] MEDS: CLOPIDOGREL 75 MG TABLET PO SCH (08:43)
[2020-04-29] MEDS: SMZ./TMP. 800/160 MG TABLET PO SCH ×2 (08:43→22:07)
[2020-04-29] MEDS: NIFEDIPINE XL 60 MG TABLET PO SCH (08:43)
[2020-04-29] MEDS: GABAPENTIN 100 MG CAP PO SCH ×3 (08:43→22:08)
[2020-04-29] MEDS: HYDRALAZINE HCL 25 MG TABLET PO SCH ×3 (08:43→22:07)
[2020-04-29] MEDS: allopurinoL 100 MG TAB PO SCH ×2 (08:44→22:08)
[2020-04-29] MEDS: HEPARIN 5000 UNIT/ML 1 ML VIAL SQ SCH ×2 (08:44→21:00)
[2020-04-29] MEDS: COLLAGENASE 30 GM OINTMENT TOP SCH (08:44)
[2020-04-29] MEDS: JUVEN PACKET PO SCH ×2 (08:45→21:00)
[2020-04-29] MEDS: BUPROPRION HCL S.R. 150MG TAB PO SCH ×2 (08:49→22:08)
[2020-04-29] MEDS: EPOETIN 4,000 UNIT/ML VIAL IV SCH (11:00)
--- NOTE | 2020-04-29 18:16 | P.PN ---
Subjective Date of Service: 04/29/20 Chief Complaint: Congestive heart failure, ESRD on HD, leukocytosis Patient reports feeling agitated. She completed dialysis today Her anasarca is improving. Physical Examination - Vital Signs Temperature: 97.3 F Blood Pressure: 120/60 Pulse: 66 Respirations: 16 Pulse Ox (%): 93 - Physical Exam General: Alert, In no apparent distress Respiratory: Clear to auscultation bilaterally, Normal air movement Cardiovascular: Normal S1 S2, Edema (2+ bilateral lower extremity edema. Edema has improved), Irregular heart rate/rhythm Gastrointestinal: Soft and benign, No tenderness, Distended Integumentary: Other (Bilateral venous stasis dermatitis) Neurological: Normal strength at 5/5 x4 extr - Studies Microbiology Data (last 24 hrs): 04/26/20 16:45 Blood - Blood Aerobic Blood Culture - Final Streptococcus Agalactiae [facility] 04/26/20 16:45 Blood - Blood Blood Culture Gram Stain - Final 04/26/20 16:45 Blood - Blood Anaerobic Blood Culture - Final Streptococcus Agalactiae [facility] 04/26/20 16:45 Blood - Blood Gram Stain - Final 04/26/20 16:30 Blood - Blood Aerobic Blood Culture - Final Streptococcus Agalactiae [facility] 04/26/20 16:30 Blood - Blood Blood Culture Gram Stain - Final 04/26/20 16:30 Blood - Blood Anaerobic Blood Culture - Final Streptococcus Agalactiae [facility] 04/26/20 16:30 Blood - Blood Gram Stain - Final Assessment And Plan - Current Problems (Diagnosis) (1) Anasarca Current Visit: Yes Status: Acute (2) Diabetes mellitus Onset Date: 10/03/17 Current Visit: Yes Status: Chronic Qualifiers: Diabetes mellitus type: type 2 Diabetes mellitus complication status: with kidney complications Diabetes mellitus complication detail: with chronic kidney disease Chronic kidney disease stage: on chronic dialysis (3) ESRD (end stage renal disease) on dialysis Onset Date: ~04/26/20 Current Visit: Yes Status: Chronic (4) Hypertension Current Visit: Yes Status: Chronic Qualifiers: Hypertension type: essential hypertension Qualified Code(s): I10 - Essential (primary) hypertension (5) Diastolic CHF, acute Current Visit: No Status: Acute (6) Elevated troponin Current Visit: Yes Status: Acute (7) Elevated troponin Onset Date: 09/09/16 Current Visit: No Status: Resolved (8) UTI (urinary tract infection) Current Visit: No Status: Resolved Qualifiers: Urinary tract infection type: acute cystitis Hematuria presence: without hematuria Qualified Code(s): N30.00 - Acute cystitis without hematuria - Plan Further hemodialysis per nephrology Elevated troponin likely secondary to decreased clearance from ESRD. Continue IV Lasix per nephrology. 2 different set of blood cultures growing strep agalactiae sensitive to Levaquin. Will change Zosyn to Levaquin. Repeat blood culture Monitor CBC and blood chemistry. Continue home medications. Continue home antihypertensives. Ativan p.r.n. for agitation and restlessness. Physician Review: Patient Assessed, Agree with Above Assessment and Plan
[2020-04-29] MEDS: LORAZEPAM 0.5 MG TABLET PO PRN (18:41)
--- NOTE | 2020-04-29 20:29 | PN ---
Date of Progress Note: 04/29/2020 Subjective: Ms. Priest had come in with congestive heart failure with volume overload. Has had multip le hemodialysis. Her last hemodialysis was done today. She has a history of end-stage renal disease , coronary artery disease status post recent circumflex stent. Plavix was stopped prematurely. She came in with non-STEMI. Troponin was 5. She came in with CHF. She has diabetes and anemia. She is feeling much better. Her volume status is much improved after hemodialysis. Her last hemodialysis was today. Her last creatinine is 2.57. Last hemoglobin is 8.7. The case was discussed with Dr. Ra mendez. She is now on Plavix, Lasix, hydralazine, and nifedipine. I think it would be very reasonable to re-cath Ms. Priest with her elevated troponin to make sure her recent stent in the circumflex is st ill patent. She agrees to proceed. I will make plans to do that on Friday morning. JAMIA/CELESTINE Voice ID: [id number] Report ID: [id number]
--- NOTE | 2020-04-29 20:35 | PN ---
Date of Progress Note: 04/29/2020 Chief Complaint: End-stage renal disease, fluid overload, anasarca, congestive heart failure exacerb ation. History Of Present Illness: The patient is a 65-year-old woman with past medical history of end-stag e renal disease, COPD, diabetic kidney disease, hypertensive heart and kidney disease, hyperlipidemia . She came to the hospital because of generalized weakness and shortness of breath. She was found t o have fluid overload. The patient was found to have elevated leukocytosis and urinary tract infecti on, was treated with antibiotics. The patient has marginal hyperkalemia, which is improving with dialysis today. The patient needs to have dialysis for metabolic clearance and to obtain ultrafiltration. Review of Systems: Denies chest pain, palpitation, or cough. Physical Examination: Lungs: Diminished breath sounds at bases. Heart: S1, S2. Abdomen: Soft, benign. Extremities: Edema present in the lower extremity. Laboratory Data: WBC improved from 24 to 8.9, hemoglobin is 8.7, and platelet count is 190,000. Sod ium 137, potassium 3.9, chloride 104 CO2 28, BUN 17, creatinine 2.57, calcium is 7.9, phosphorus impr sarai from 5.4 to 3.7. Impression And Plan: 1.End-stage renal disease, fluid overload, anasarca. Continue p.o. fluid restriction. The patient is undergoing daily dialysis treatment for metabolic clearance and ultrafiltration. 2.Hypoalbuminemia. Increase p.o. protein intake. 3.Renal osteodystrophy. Phosphorus level is improving. Adjust binders accordingly. 4.Hypertension. Monitor blood pressure during dialysis and adjust ultrafiltration goal to prevent i ntradialytic hypotension. EB/MODL Voice ID: [id number] Report ID: [id number]
[2020-04-30] MEDS: HYDROCODONE/APAP 5/325 MG TAB PO PRN ×3 (05:37→20:55)
[2020-04-30 06:00] LABS: Absolute Lymphocytes (CBC) 1.6 K/uL (0.7-4.9); Basophils % 0.6 % (0-1.3); Hematocrit 28.9 % (36.0-45.0); Lymphocytes % 21.8 % (15.3-44.8); MPV 7.2 fL (7.6-11.3)
[2020-04-30 06:05] LABS: Albumin 2.2 g/dL (3.4-5.0); Phosphorus 2.7 mg/dL (2.5-4.9); Potassium 4.1 mmol/L (3.5-5.1)
[2020-04-30] MEDS: HEPARIN 5000 UNIT/ML 1 ML VIAL SQ SCH ×2 (07:20→20:40)
[2020-04-30] MEDS: JUVEN PACKET PO SCH ×2 (07:21→20:40)
[2020-04-30] MEDS: BUDESONIDE 0.5 MG/2 ML NEB IH SCH ×2 (08:00→20:00)
[2020-04-30] MEDS: CLOPIDOGREL 75 MG TABLET PO SCH (10:00)
[2020-04-30] MEDS: FAMOTIDINE 20 MG TAB PO SCH ×2 (10:00→20:50)
[2020-04-30] MEDS: FUROSEMIDE 40 MG/4 ML VIAL IV SCH ×2 (10:00→16:23)
[2020-04-30] MEDS: SMZ./TMP. 800/160 MG TABLET PO SCH ×2 (10:00→20:50)
[2020-04-30] MEDS: HYDRALAZINE HCL 25 MG TABLET PO SCH ×3 (10:00→20:50)
[2020-04-30] MEDS: NIFEDIPINE XL 60 MG TABLET PO SCH (10:00)
[2020-04-30] MEDS: allopurinoL 100 MG TAB PO SCH ×2 (10:01→20:49)
[2020-04-30] MEDS: GABAPENTIN 100 MG CAP PO SCH ×3 (10:01→20:49)
[2020-04-30] MEDS: BUPROPRION HCL S.R. 150MG TAB PO SCH ×2 (10:01→20:51)
[2020-04-30] MEDS: COLLAGENASE 30 GM OINTMENT TOP SCH (10:10)
[2020-04-30] MEDS: LORAZEPAM 0.5 MG TABLET PO PRN (10:10)
--- NOTE | 2020-04-30 11:12 | P.PN ---
Subjective Date of Service: 04/30/20 Chief Complaint: Congestive heart failure, ESRD on HD, leukocytosis Patient states she feels better today The anasarca has improved Physical Examination - Vital Signs Temperature: 97.6 F Blood Pressure: 134/60 Pulse: 70 Respirations: 18 Pulse Ox (%): 95 - Physical Exam General: Alert, In no apparent distress Neck: Supple Respiratory: Clear to auscultation bilaterally, Normal air movement Cardiovascular: Normal S1 S2, Edema (2+ bilateral lower extremity edema), Irregular heart rate/rhythm Gastrointestinal: Soft and benign, Distended Integumentary: Other (Bilateral lower extremity venostasis dermatitis.) - Studies Microbiology Data (last 24 hrs): 04/26/20 16:45 Blood - Blood Aerobic Blood Culture - Final Streptococcus Agalactiae [facility] 04/26/20 16:45 Blood - Blood Blood Culture Gram Stain - Final 04/26/20 16:45 Blood - Blood Anaerobic Blood Culture - Final Streptococcus Agalactiae [facility] 04/26/20 16:45 Blood - Blood Gram Stain - Final 04/26/20 16:30 Blood - Blood Aerobic Blood Culture - Final Streptococcus Agalactiae [facility] 04/26/20 16:30 Blood - Blood Blood Culture Gram Stain - Final 04/26/20 16:30 Blood - Blood Anaerobic Blood Culture - Final Streptococcus Agalactiae [facility] 04/26/20 16:30 Blood - Blood Gram Stain - Final Assessment And Plan - Current Problems (Diagnosis) (1) Anasarca Current Visit: Yes Status: Acute (2) Diabetes mellitus Onset Date: 10/03/17 Current Visit: Yes Status: Chronic Qualifiers: Diabetes mellitus type: type 2 Diabetes mellitus complication status: with kidney complications Diabetes mellitus complication detail: with chronic kidney disease Chronic kidney disease stage: on chronic dialysis (3) ESRD (end stage renal disease) on dialysis Onset Date: ~04/26/20 Current Visit: Yes Status: Chronic (4) Hypertension Current Visit: Yes Status: Chronic Qualifiers: Hypertension type: essential hypertension Qualified Code(s): I10 - Essential (primary) hypertension (5) Diastolic CHF, acute Current Visit: No Status: Acute (6) Elevated troponin Current Visit: Yes Status: Acute (7) Elevated troponin Onset Date: 09/09/16 Current Visit: No Status: Resolved (8) UTI (urinary tract infection) Current Visit: No Status: Resolved Qualifiers: Urinary tract infection type: acute cystitis Hematuria presence: without hematuria Qualified Code(s): N30.00 - Acute cystitis without hematuria (9) Bacteremia Current Visit: Yes Status: Acute - Plan Further hemodialysis per nephrology Elevated troponin likely secondary to decreased clearance from ESRD. Continue IV Lasix per nephrology. 2 different set of blood cultures growing strep agalactiae sensitive to Levaquin. Continue IV Levaquin. Repeat blood culture result is pending. Monitor CBC and blood chemistry. Continue home medications. Continue home antihypertensives. Ativan p.r.n. for agitation and restlessness.
--- NOTE | 2020-04-30 23:36 | PN ---
Date of Progress Note: 04/30/2020 Chief Complaint: End-stage renal disease, fluid overload, anasarca, congestive heart failure exacerb ation, coronary artery disease. History Of Present Illness: The patient is a 65-year-old woman with past medical history of end-stag e renal disease, COPD, diabetic kidney disease, hypertensive heart and kidney disease, hyperlipidemia , coronary artery disease. The patient came to the hospital because of generalized weakness and shor tness of breath. She was found to have fluid overload. She is undergoing dialysis with daily treatm ent to obtain negative fluid balance. The patient is to have cardiac catheterization tomorrow. The patient on admission was found to have marginal hyperkalemia, which improved with dialysis. Potassiu m level is in good control. Review of Systems: Denies PND or orthopnea. Physical Examination: Lungs: Diminished breath sounds at bases. Heart: S1, S2. Abdomen: Soft, benign. Extremities: Edema present in lower extremities. Laboratory Data: WBC improved to 8.9, hemoglobin is 8.7, platelet count 190,000. Sodium 137, potass ium 3.9, chloride 104, CO2 28, BUN 17, creatinine 2.57, phosphorus improved to 3.7. Impression And Plan: 1.End-stage renal disease, fluid overload, anasarca. Continue fluid restriction. Continue dialysis with ultrafiltration, advanced ultrafiltration to control fluid overload. 2.Hypoalbuminemia. Increase p.o. protein intake. 3.Renal osteodystrophy. Performance level is improving. Adjust binders accordingly. 4.Hypertension. Monitor blood pressure during dialysis. Adjust ultrafiltration goal to prevent int radialytic hypotension. 5.Coronary artery disease. The patient is scheduled to have cardiac catheterization. After procedu re, the patient will have dialysis to obtain metabolic clearance to prevent hyperkalemia related to t he contrast administration. EB/MODL Voice ID: [id number] Report ID: [id number]
[2020-05-01 04:56] LABS: Absolute Lymphocytes (CBC) 1.6 K/uL (0.7-4.9); Basophils % 0.7 % (0-1.3); Hematocrit 29.8 % (36.0-45.0); MPV 7.3 fL (7.6-11.3); RBC Red Blood Cell Count 3.52 M/uL (3.86-4.86)
[2020-05-01 05:07] LABS: Albumin 2.1 g/dL (3.4-5.0); Phosphorus 2.8 mg/dL (2.5-4.9); Potassium 4.3 mmol/L (3.5-5.1)
[2020-05-01] MEDS: CLOPIDOGREL 75 MG TABLET PO SCH (06:02)
[2020-05-01] MEDS: HYDROCODONE/APAP 5/325 MG TAB PO PRN ×2 (06:08→16:52)
[2020-05-01] MEDS ORDERED: ACETYLCYST 6,000 MG/30 ML VIAL PO ONE (06:52)
[2020-05-01] MEDS ORDERED: ACETYLCYST 20% 800 MG/4 ML VIAL PO ONE (07:45)
[2020-05-01] MEDS: BUDESONIDE 0.5 MG/2 ML NEB IH SCH ×2 (08:00→20:00)
[2020-05-01] MEDS: HEPARIN 5000 UNIT/ML 1 ML VIAL SQ SCH ×2 (09:00→21:00)
[2020-05-01] MEDS: JUVEN PACKET PO SCH ×2 (09:00→21:00)
[2020-05-01] MEDS: NIFEDIPINE XL 60 MG TABLET PO SCH (10:30)
[2020-05-01] MEDS: GABAPENTIN 100 MG CAP PO SCH ×3 (10:30→21:39)
[2020-05-01] MEDS: allopurinoL 100 MG TAB PO SCH ×2 (10:30→21:00)
[2020-05-01] MEDS: HYDRALAZINE HCL 25 MG TABLET PO SCH ×3 (10:30→21:38)
[2020-05-01] MEDS: BUPROPRION HCL S.R. 150MG TAB PO SCH ×2 (10:30→21:49)
[2020-05-01] MEDS: COLLAGENASE 30 GM OINTMENT TOP SCH (10:30)
[2020-05-01] MEDS: FAMOTIDINE 20 MG TAB PO SCH ×2 (10:30→21:49)
[2020-05-01] MEDS: FUROSEMIDE 40 MG/4 ML VIAL IV SCH ×2 (10:30→17:00)
[2020-05-01] MEDS: SMZ./TMP. 800/160 MG TABLET PO SCH ×2 (10:30→21:38)
[2020-05-01] MEDS ORDERED: HEPA 1000U/500MLS 2,000 UNIT/1,000 ML BAG IV ONE (13:37)
[2020-05-01] MEDS ORDERED: LIDOCAINE 1% 20 ML MDV ONE (13:37)
--- NOTE | 2020-05-01 13:56 | P.PN ---
Subjective Date of Service: 05/01/20 Chief Complaint: Congestive heart failure, ESRD on HD, leukocytosis Patient has no specific complaint today. No chest pain. The anasarca and ascites have improved. Patient scheduled for cardiac catheterization today. Physical Examination - Vital Signs Temperature: 97.3 F Blood Pressure: 145/65 Pulse: 74 Respirations: 18 Pulse Ox (%): 97 - Physical Exam General: Alert, In no apparent distress Neck: Supple Respiratory: Clear to auscultation bilaterally, Normal air movement Cardiovascular: Normal S1 S2, Edema (Bilateral lower extremity edema improved.), Irregular heart rate/rhythm Gastrointestinal: Normal bowel sounds, Soft and benign, Distended (Abdominal distension improved.) Musculoskeletal: Swelling (Bilateral legs.) Integumentary: Other (Bilateral venous stasis dermatitis of legs.) Neurological: Normal strength at 5/5 x4 extr, Cranial nerves 3-12 intact Assessment And Plan - Current Problems (Diagnosis) (1) Anasarca Current Visit: Yes Status: Acute (2) Diabetes mellitus Onset Date: 10/03/17 Current Visit: Yes Status: Chronic Qualifiers: Diabetes mellitus type: type 2 Diabetes mellitus complication status: with kidney complications Diabetes mellitus complication detail: with chronic kidney disease Chronic kidney disease stage: on chronic dialysis (3) ESRD (end stage renal disease) on dialysis Onset Date: ~04/26/20 Current Visit: Yes Status: Chronic (4) Hypertension Current Visit: Yes Status: Chronic Qualifiers: Hypertension type: essential hypertension Qualified Code(s): I10 - Essential (primary) hypertension (5) Diastolic CHF, acute Current Visit: No Status: Acute (6) Elevated troponin Current Visit: Yes Status: Acute (7) Elevated troponin Onset Date: 09/09/16 Current Visit: No Status: Resolved (8) UTI (urinary tract infection) Current Visit: No Status: Resolved Qualifiers: Urinary tract infection type: acute cystitis Hematuria presence: without hematuria Qualified Code(s): N30.00 - Acute cystitis without hematuria (9) Bacteremia Current Visit: Yes Status: Acute - Plan Further hemodialysis per nephrology Elevated troponin likely secondary to decreased clearance from ESRD. Patient has significant coronary artery disease. Cardiology planning for cardiac catheterization today Continue IV Lasix per nephrology. 2 different set of blood cultures growing strep agalactiae sensitive to Levaquin. Continue IV Levaquin. Repeat blood culture shows no growth. Monitor CBC and blood chemistry. Continue home medications. Continue home antihypertensives. Ativan p.r.n. for agitation and restlessness.
[2020-05-01] MEDS ORDERED: NA CHLORIDE 0.9% 500 ML ONE (14:26)
[2020-05-01] MEDS ORDERED: HEPARIN 5000 UNIT/ML 1 ML VIAL ONE (15:07)
[2020-05-01] MEDS ORDERED: FENTANYL CITR 100 MCG/2 ML ONE (15:07)
[2020-05-01] MEDS ORDERED: MIDAZOLAM HCL 2 MG/2 ML INJ ONE (15:07)
[2020-05-01] MEDS ORDERED: HEPARIN 10,000 UNIT/10 ML VIAL IV ONE (15:08)
[2020-05-01] MEDS ORDERED: VERAPAMIL HCL 10 MG/4 ML VIAL IV ONE (15:08)
[2020-05-01] MEDS ORDERED: NITROGLYCERIN 100 MCG/ML SYR (for cath lab use only) IV ONE (15:08)
[2020-05-01] MEDS ORDERED: ATROPINE SULF 1 MG/10 ML SYR IV ONE (15:08)
[2020-05-01] MEDS ORDERED: HEPA 1000U/500MLS 1,000 UNIT/500 ML BAG IV ONE (16:12)
[2020-05-01] MEDS ORDERED: CLOPIDOGREL 75 MG TABLET ONE (16:21)
--- NOTE | 2020-05-01 17:53 | PN ---
Date of Progress Note: 04/30/2020 Cem is here for non-ST elevation myocardial infarction; renal failure, on dialysis; worsening conges tive heart failure. She had done much better on multiple dialysis for volume overload. Her last cre atinine is . Her last hemoglobin is 9.0. Last glucose was 158. The patient is not having any chest pain. Remains with some shortness of breath, some PND. No pedal edema. She is aware that she is having a heart catheterization on 05/01/[address] García. She agrees to proceed. Understa nds the risks and benefits of the procedure. Continue present regimen for now. NB/MODL Voice ID: [id number] Report ID: [id number]
--- NOTE | 2020-05-01 17:53 | PN ---
Date of Progress Note: 05/01/2020 Subjective: Ms. Priest this morning has no complaints. Her vital signs were stable. She was afebrile . She is in sinus rhythm. Objective: Chest: Clear. Cardiac: Revealed a regular rhythm and rate with an S4 gallop. Abdomen: Benign. Extremities: Revealed no clubbing, cyanosis, or edema. Diagnostic Data: Stable. Last creatinine 2.48. Plan for a heart catheterization today by Dr. García to define her coronary anatomy. She recently bradshaw d a circumflex stent, was taken off Plavix for an AV fistula placement, came back with CHF. Renal fa ilure has been chronic. We were concerned that circumflex stent has restenosed with the troponin of 5. We will see what the catheterization shows today. JAMIA/CELESTINE Voice ID: [id number] Report ID: [id number]
--- NOTE | 2020-05-01 17:59 | OP ---
Date of Procedure: 05/01/2020 Surgeon: TAVO CALLEJAS Procedures Performed: 1.Selective coronary angiogram with bypass graft study. 2.PCI of mid to distal severe left circumflex stenosis, which is a culprit for the ME. I used a 2.2 5 x 12 mm Synergy drug-eluting stent, post dilated mid and proximal portion of the stent to 3 mm. Indication: Non-ST elevation myocardial infarction. Access: Right femoral artery 6-Indonesian closed with manual pressure. Description Of Procedure: After risks, benefits, and alternatives were explained, the patient agreed to the procedure and signed informed consent. The patient was brought into the cardiac catheterizat ion laboratory, prepped and draped in usual sterile fashion. Then, we used fentanyl and Versed in in cremental doses to achieve adequate moderate sedation. Then, we accessed right femoral artery with t he ultrasound guidance and fluoroscopy and placed a 4-Indonesian sheath and took a 4-Indonesian JL4 catheter into the aortic root, engaged left main, took standard views, then exchanged for 4-Indonesian JR4 cathete r into the aortic root, engaged the RCA, SVG to RCA and the PRITCHETT, took standard views. Then, we deci ded for intervention of the mid left circumflex, see below. Intervention Details: We exchanged the groin access to 6-Indonesian [place] sheath and took a 6-Indonesian EBU3.5 into the aortic root, engaged the left main coronary artery, and then took a short Run-Through wire into the left main and the left circumflex across the stenosis and then, the lesion was re-dila merna using a 2.5 NC balloon. Subsequently, we took a 2.25 x 12 mm stent across the stenosis, overlapp ed with old stent, and deployed at a high pressure that gives a size of 2.4 mm and then took a 3.0 x 12 mm balloon into the mid and proximal portion of the stent post dilated and was little overlapped, results were excellent 0% residual stenosis. We then removed the catheters and wires and applied man ual pressure on the access with good hemostasis. This was done after ACT dropped below 160. Findings: 1.Left main is large and normal. 2.LAD; proximal severe stenosis with patent PRITCHETT to LAD. 3.Left circumflex; patent proximal stent with mid to distal portion of left circumflex just distal t o the stent and 95% stenosis, which is a culprit for the ME, status post PCI as above. 4.RCA; mid NET WPF DEVELOPER, but there are collaterals coming from the left circumflex. Grafts: 1.Patent PRITCHETT to LAD. 2.Patent SVG to RCA; however, that connected to a very small branch. It does not feed the RCA. Lik alvino the RCA territory is being supplied by the circumflex. Conclusions: Severe left circumflex stenosis, which is a culprit, status post successful PCI as abov e. Plan: Load with 300 mg of Plavix, continue 75 mg daily for a year; aspirin for life and high-dose st atin for life. SR/MODL Voice ID: [id number] Report ID: [id number]
[2020-05-01] MEDS: LORAZEPAM 0.5 MG TABLET PO PRN (21:50)
--- NOTE | 2020-05-01 22:08 | PN ---
Date of Progress Note: 05/01/2020 Chief Complaint: End-stage renal disease, fluid overload, anasarca, congestive heart failure, samuels ry artery disease. The patient is scheduled to have cardiac catheterization done. Subsequently, the patient will have dialysis to prevent hyperkalemia related to contrast exposure. History Of Present Illness: The patient is a 65-year-old woman with past medical history of end-stag e renal disease, COPD, diabetic kidney disease, hypertensive heart and kidney disease, hyperlipidemia , coronary artery disease. The patient came to the hospital because of generalized weakness and shor tness of breath. She was found to have decompensated congestive heart failure, fluid overload. The patient has systolic and diastolic dysfunction. Review of Systems: Denies PND or orthopnea. Physical Examination: Lungs: Diminished breath sounds at bases. Heart: S1, S2. No pericardial friction rub. Abdomen: Soft, benign. Extremities: Edema in both legs. Laboratory Data: WBC 8.9, hemoglobin 8.7, platelet count 190,000. Sodium 137, potassium 3.9, chlori de 104, CO2 28, BUN 17, creatinine 2.57, phosphorus 3.7. Impression And Plan: 1.End-stage renal disease, fluid overload, anasarca, congestive heart failure, acute on chronic syst olic and diastolic dysfunction. Continue dialysis with ultrafiltration, advanced with fluid removal and control fluid overload. 2.Hypoalbuminemia. Increase p.o. protein intake. 3.Renal osteodystrophy. Phosphorus level is improving. Adjust binders according to the phosphorus level. 4.Coronary artery disease. The patient is scheduled to have cardiac catheterization. Procedure albert l be done with IV contrast and subsequently the patient will have dialysis to prevent contrast-induced hyperkalemia. EB/MODL Voice ID: [id number] Report ID: [id number]
[2020-05-02] MEDS: HYDROCODONE/APAP 5/325 MG TAB PO PRN ×2 (04:25→19:09)
[2020-05-02 04:46] VITALS: BMI 25.2
[2020-05-02 05:34] LABS: Albumin 2.1 g/dL (3.4-5.0); Phosphorus 3.7 mg/dL (2.5-4.9); Potassium 4.6 mmol/L (3.5-5.1)
[2020-05-02] MEDS: BUDESONIDE 0.5 MG/2 ML NEB IH SCH (08:00)
[2020-05-02] MEDS: BUPROPRION HCL S.R. 150MG TAB PO SCH ×2 (09:00→21:15)
[2020-05-02] MEDS: NIFEDIPINE XL 60 MG TABLET PO SCH (09:00)
[2020-05-02] MEDS: JUVEN PACKET PO SCH ×2 (09:00→21:00)
[2020-05-02] MEDS: COLLAGENASE 30 GM OINTMENT TOP SCH (09:00)
[2020-05-02] MEDS: FUROSEMIDE 40 MG/4 ML VIAL IV SCH ×2 (09:00→16:47)
[2020-05-02] MEDS: HEPARIN 5000 UNIT/ML 1 ML VIAL SQ SCH ×2 (09:00→21:00)
[2020-05-02] MEDS: HYDRALAZINE HCL 25 MG TABLET PO SCH ×3 (09:00→21:13)
[2020-05-02] MEDS: GABAPENTIN 100 MG CAP PO SCH ×3 (09:17→21:15)
[2020-05-02] MEDS: CLOPIDOGREL 75 MG TABLET PO SCH (09:17)
[2020-05-02] MEDS: SMZ./TMP. 800/160 MG TABLET PO SCH ×2 (09:17→21:14)
[2020-05-02] MEDS: FAMOTIDINE 20 MG TAB PO SCH ×2 (09:17→21:13)
[2020-05-02] MEDS: allopurinoL 100 MG TAB PO SCH ×2 (09:18→21:00)
[2020-05-02] MEDS: EPOETIN 4,000 UNIT/ML VIAL IV SCH (11:00)
--- NOTE | 2020-05-02 11:51 | PN ---
Date of Progress Note: 05/02/2020 Subjective: The patient was admitted with [id number] DC. The patient had cardiac cath with PTCA yesterday. The patient tolerated the procedure. Physical Examination: Vital Signs: Blood pressure 125/58, pulse of 72. Chest: Crackles bilateral. Heart: S1, S2. Systolic murmur. Abdomen: Soft, nontender. Extremity: +2 edema. Compression dressing on both leg. Neurologic: Alert, no focality. Laboratory Data: WBC 6.5, H and H 9.2/29.8. Sodium 136, potassium 4.6, bicarb 28, BUN 22, creatinine 3.3, calcium 8, phosphor 3.7, albumin 2.1. Current Medications: The patient on include Plavix, Epogen, heparin, hydralazine 50 t.i.d., nifedipine. Gabapentin, Lasix, Pepcid, allopurinol, budesonide. Assessment And Plan: 1. End-stage renal disease, over volume. We will continue dialysis for the patient. We will try to establish better volume control. The patient is going to be scheduled for another session of dialysis sequential tomorrow to establish better volume and we will follow up. 2. Hypertension giving the acute myocardial infarction and over volume status. I can start the patient on lisinopril. We will decrease her hydralazine to 25 mg to allow more blood pressure for ultrafiltration and for the lisinopril and we will follow up the patient. 3. I can go ahead and add carvedilol to her regimen. 4. We will decrease her nifedipine to 30. Plan to replace it with a beta gina if okay with Cardiology. 5. Anemia of chronic kidney disease. We will continue to monitor the patient. Continue BRONWYN. 6. Anasarca secondary to renal failure. As I mentioned, the patient is going to have another session of dialysis tomorrow. 7. Non-ST elevation myocardial infarction, status post PTCA. We will follow up with Cardiology. 8. Secondary hyperparathyroidism. Calcium and phosphorus on the goal. Continue to monitor. time spend discussing with the patient face to face , placing order , discusse with the patient and other food court team member including hospitalist 45 min. NATI/CELESTINE Voice ID: [id number] Report ID: [id number] MTDDannielle
--- NOTE | 2020-05-02 11:57 | PN ---
This is dialysis note. Subjective: The patient seen on dialysis. The patient still have shortness of breath, still have significant leg swelling. The patient had cardiac cath yesterday. Objective: Vital Signs: Blood pressure 164/80, pulse of 88. Chest: Crackles bilateral. Heart: S1 and S2. Systolic murmur. Abdomen: Soft, nontender. Extremities: Compression dressing both legs, +2 edema. Neuro: Alert. No focality. Laboratory Data: H and H 9.2/29.8. Sodium 136, potassium 4.6, bicarb 28, BUN 22, creatinine 3.3, calcium 8, phosphorus 3.7. Current Medications: Include Bactrim, Plavix, Epogen, hydralazine 50 t.i.d., nifedipine 60, Lorazepam, Lasix 80 b.i.d., Pepcid. Assessment/plan: 1. End-stage renal disease, over volume. I am going to increase her goal to 4500. We will do another session of dialysis tomorrow to establish better volume control and we will monitor. 2. Hypertension. We will decrease hydralazine to 25 t.i.d. and decrease nifedipine to 30. Plan to discontinue, we will replace it with carvedilol 3.25 and add lisinopril. We will try to follow more blood pressure for ultrafiltration and diuresis. 3. Anemia of chronic kidney disease. Continue BRONWYN. 4. Secondary hyperparathyroidism, stable. 5. Non-ST elevation myocardial infarction, as above. time spend discussing with the patient face to face , placing order , discusse with the patient and other team assembler including hospitalist 45 min. GAMA Voice ID: [id number] Report ID: [id number] [facility]ITAL[facility]annielle
--- NOTE | 2020-05-02 12:57 | P.PN ---
Subjective Date of Service: 05/02/20 Chief Complaint: Congestive heart failure, ESRD on HD, leukocytosis Subjective: Improving (Feeling significantly better, denies chest pain, reports swelling has improved, breathing comfortably on room air) Review of Systems 10-point ROS is otherwise unremarkable Physical Examination - Vital Signs Temperature: 97 F Blood Pressure: 125/58 Pulse: 72 Respirations: 18 Pulse Ox (%): 93 Assessment & Plan Physician Review Additional Text: Physical exam General: Alert, In no apparent distress Neck: Supple Respiratory: Clear to auscultation bilaterally, Normal air movement Cardiovascular: Normal S1 S2, Edema (Bilateral lower extremity edema improved.), Irregular heart rate/rhythm Gastrointestinal: Normal bowel sounds, Soft and benign, Distended (Abdominal distension improved.) Musculoskeletal: Swelling (Bilateral legs.) Integumentary: Other (Bilateral venous stasis dermatitis of legs.) Neurological: Normal strength at 5/5 x4 extr, Cranial nerves 3-12 intact Problem list NSTEMI Anasarca UTI, cystitis Bacteremia Acute on chronic Diastolic CHF ESRD on HD DM2 with chronic kidney disease -NSTEMI - s/p stent placement by cardiology on 05/01 -continue IV lasix and HD per nephrology -blood cultures growing strep agalactiae - being treated with PO Bactrim, repeat cultures negative -continue home medications / antihypertensives -dc bender today -will likely need 10-14 days total of Abx following negative blood cultures dispo: anticipate dc home in 24-48hrs Time Spent Managing Pts Care (In Minutes): 35
[2020-05-02] MEDS: carvediloL 6.25 MG TAB PO SCH (21:13)
[2020-05-03] MEDS: LORAZEPAM 0.5 MG TABLET PO PRN (00:46)
[2020-05-03 05:58] LABS: Hematocrit 29.4 % (36.0-45.0); MPV 7.2 fL (7.6-11.3); RBC Red Blood Cell Count 3.48 M/uL (3.86-4.86)
[2020-05-03 06:15] LABS: Albumin 2.2 g/dL (3.4-5.0); Phosphorus 3.2 mg/dL (2.5-4.9); Potassium 4.4 mmol/L (3.5-5.1)
[2020-05-03] MEDS: BUDESONIDE 0.5 MG/2 ML NEB IH SCH (08:00)
[2020-05-03] MEDS ORDERED: lisinopriL 5 MG TAB PO SCH (09:00)
[2020-05-03] MEDS: JUVEN PACKET PO SCH (09:00)
[2020-05-03] MEDS ORDERED: NIFEDIPINE XL 30 MG TABLET PO SCH (09:00)
[2020-05-03] MEDS: HEPARIN 5000 UNIT/ML 1 ML VIAL SQ SCH (09:00)
[2020-05-03] MEDS: HYDRALAZINE HCL 25 MG TABLET PO SCH ×2 (09:00→13:10)
[2020-05-03] MEDS: FUROSEMIDE 40 MG/4 ML VIAL IV SCH (09:00)
[2020-05-03] MEDS: carvediloL 6.25 MG TAB PO SCH (09:00)
[2020-05-03] MEDS: FAMOTIDINE 20 MG TAB PO SCH (09:27)
[2020-05-03] MEDS: BUPROPRION HCL S.R. 150MG TAB PO SCH (09:27)
[2020-05-03] MEDS: GABAPENTIN 100 MG CAP PO SCH ×2 (09:27→14:34)
[2020-05-03] MEDS: CLOPIDOGREL 75 MG TABLET PO SCH (09:27)
[2020-05-03] MEDS: SMZ./TMP. 800/160 MG TABLET PO SCH (09:27)
[2020-05-03] MEDS: allopurinoL 100 MG TAB PO SCH (09:28)
[2020-05-03] MEDS: COLLAGENASE 30 GM OINTMENT TOP SCH (09:29)
[2020-05-03 11:28] VITALS: O2SAT 95
--- NOTE | 2020-05-03 14:00 | P.DS ---
Admission Date: 04/26/20 Discharge Date: 05/03/20 Disposition: ROUTINE DISCHARGE Discharge Condition: GOOD Reason for Admission: Congestive heart failure, ESRD on HD, leukocytosis Consultations: Cardiology - Dr. Raymond / Raquel Renal - Dr. Fernando / Albertina Procedures: Venous U/S (04/26): no DVT in RLE CXR (04/26): Right base is hazy likely combination of pleural effusion and atelectasis. Mild additional bilateral pulmonary opacities likely pulmonary edema. The heart is moderately enlarged. Postsurgical changes involve the chest. A central venous catheter in place Cardiac Cath (05/01): Severe left circumflex stenosis, s/p stent placement by Dr. García Problem List NSTEMI requiring stent placement; h/o CAD s/p CABG Anasarca UTI, cystitis Bacteremia Acute on chronic Diastolic CHF (HFpEF) ESRD on HD DM2, with chronic kidney disease HTN Brief History of Present Illness: 65 yo F with CHF, COPD, T2DM, ESRD on HD T//Fri, HLD, HTN, CAD s/p CABG, and h/o of uterine cancer here for increased SOB over the past few weeks. She was sent here from wound care clinic where she went for follow-up for healing leg wounds. She reports she has been out of her medications for "awhile" and thinks that she went to dialysis last week but cannot remember if she went yesterday (04/25/20). Per Dr. Dickey, she is still producing urine. Patient is a poor historian. Received azithromycin and ceftriaxone, lasix, solu-medrol in the ER. Per previous admission in 01/2020, she was diagnosed with a UTI but was unable to afford antibiotics for treatment. Urine dip today was dirty. Pending urine jo ann and culture. Na 133, K 5.3, Cl 99, HCO3 25, BUN 18, Cr 2.71, and Glu 76. Hb/Hct 10/37.5, WBC 17.5, Plt 250. Lac 9.2. BNP 72,569. Troponins 0.06 (her troponins are elevated at baseline). Hospital Course: On admission, patient was found to be septic with blood cultures growing Streptococcus agalactiae group B. although UA was grossly positive for UTI, urine culture had no growth. She was initially cover with empiric antibiotics, and switched to p.o. Bactrim. Patient continued to improve and had negative repeat blood cultures (04/27). She is discharged with an additional days of Bactrim, to complete a total 14 days since negative cultures. Patient also reported having chest pain. Troponin peaked at 4.9, Cardiology was consulted, she was taken to cardiac labor gang supervisor on 05/01 were she was found to have 95% stenosis and underwent stent placement. She is to continue on aspirin and high-dose statin for life, Plavix 75 mg daily for 1 year. Nephrology was consulted, patient was aggressively diuresed and underwent hemodialysis with significant improvement in her edema and shortness of breath. Her blood pressure medications were adjusted. Nifedipine was discontinued, hydralazine was decreased, patient was started on Coreg and lisinopril. Advanced care planning was addressed with patient. Total time: 30 min. She is discharged back to home where she already has home health set up. She will follow up with Cardiology, Nephrology, and wound care clinic as previously scheduled. Vital Signs/Physical Exam: Temp Pulse Resp BP Pulse Ox 97.0 F 70 18 156/83 H 96 05/03/20 12:00 05/03/20 12:00 05/03/20 12:00 05/03/20 12:00 05/03/20 12:00 General: Alert, In no apparent distress, Oriented x3 HEENT: Sclerae nonicteric Respiratory: Clear to auscultation bilaterally, Diminished (slightly at bases bilaterally) Cardiovascular: Regular rate/rhythm Gastrointestinal: Soft and benign, No tenderness Integumentary: Other (bilateral lower extremities with dressing in place, +bilaeral edema to thighs, significantly improved.) Neurological: Normal speech, Normal affect Laboratory Data at Discharge: WBC 6.10 K/uL (4.3-10.9) 05/03/20 05:25 Hgb 9.1 g/dL (12.0-15.0) L 05/03/20 05:25 Hct 29.4 % (36.0-45.0) L 05/03/20 05:25 Plt Count 208 K/uL (152-406) 05/03/20 05:25 PT 15.6 SECONDS (9.5-12.5) H 04/26/20 16:30 INR 1.33 04/26/20 16:30 APTT 31.6 SECONDS (24.3-36.9) 04/26/20 16:30 Sodium 132 mmol/L (136-145) L 05/03/20 05:25 Potassium 4.4 mmol/L (3.5-5.1) 05/03/20 05:25 BUN 19 mg/dL (7-18) H 05/03/20 05:25 Creatinine 3.04 mg/dL (0.55-1.3) H 05/03/20 05:25 Glucose 118 mg/dL (74-106) H 05/03/20 05:25 Phosphorus 3.2 mg/dL (2.5-4.9) 05/03/20 05:25 Magnesium 1.8 mg/dL (1.8-2.4) 04/26/20 16:30 Total Bilirubin 0.5 mg/dL (0.2-1.0) 04/26/20 16:30 AST 16 U/L (15-37) 04/26/20 16:30 ALT 8 U/L (12-78) L 04/26/20 16:30 Alkaline Phosphatase 161 U/L (45-117) H 04/26/20 16:30 Troponin I 4.83 ng/mL (0.0-0.045) H* 04/27/20 02:53 Lipase 49 U/L (73-393) L 04/26/20 16:30 Home Medications: Buproprion S.r. [Wellbutrin Sr*] 1 tab PO BID 02/27/20 Clopidogrel Bisulfate [Plavix*] 75 mg PO DAILY 02/27/20 Collagenase [Santyl Ointment*] 1 appl TOP DAILY 02/27/20 Fluticasone [Flovent Hfa 110*] 2 puff IH DAILY 02/27/20 allopurinoL [Allopurinol] 1 tab PO BID 02/27/20 Epoetin [Retacrit] 10,000 unit IV EVERY HD vial 03/02/20 Gabapentin [Neurontin*] 100 mg PO TID #90 cap 03/02/20 Patrice [Patrice*] 1 pkt PO BID #60 powd.pack 03/02/20 Medihoney [Medihoney Woundcare Gel*] 1 appl TOP DAILY #1 tube 03/02/20 Aspirin [Aspirin EC 81 MG] 81 mg PO DAILY 30 Days #30 tablet. 05/03/20 Atorvastatin Calcium 40 mg PO BEDTIME 30 Days #30 tablet 05/03/20 Hydralazine [Apresoline*] 25 mg PO TID 30 Days #90 tab 05/03/20 Smz./Tmp. [Bactrim Ds 800 MG/160 MG*] 0.5 tab PO BID 8 Days #8 tab 05/03/20 carvediloL [Coreg*] 6.25 mg PO BID 30 Days #60 tab 05/03/20 lisinopriL [Prinivil*] 5 mg PO DAILY 30 Days #30 tab 05/03/20 New Medications: Hydralazine [Apresoline*] 25 mg PO TID 30 Days #90 tab Aspirin [Aspirin EC 81 MG] 81 mg PO DAILY 30 Days #30 tablet. Atorvastatin Calcium 40 mg PO BEDTIME 30 Days #30 tablet Smz./Tmp. [Bactrim Ds 800 MG/160 MG*] 0.5 tab PO BID 8 Days #8 tab carvediloL [Coreg*] 6.25 mg PO BID 30 Days #60 tab lisinopriL [Prinivil*] 5 mg PO DAILY 30 Days #30 tab Physician Discharge Instructions: You were found to have bacteria in your blood, and UTI. You were treated with Bactrim and had improvement. You are discharged to continue 8 more days of this antibiotic. Your chest pain was due to blockage of one of your coronary arteries and you underwent stent placement. You will need to follow up with Cardiology in the next few weeks. Continue to take aspirin, plavix, and cholesterol pill (atorvastatin). Continue diuresis and wound care as previously done. Your blood pressure medications were changed and you will need to continue to follow up with Dr. Fernando. Diet: ADA Activity: Ad shira Followup: Sharri Fernando MD [ACTIVE - CAN ADMIT] - NONE,NONE [Primary Care Provider] - Time spent managing pt's care (in minutes): 60
--- NOTE | 2020-05-03 16:09 | PN ---
Subjective: This is dialysis note. The patient is seen on dialysis. The patient is comfortable. The patient is status post dialysis yesterday. We managed to remove 4100 total of UF of 3700. This is extra dialysis. The patient is feeling well. Physical Examination: Vital Signs: Blood pressure 168/82, pulse of 88. Chest: Faint crackles bilateral base. Heart: S1, S2. Systolic murmur. Abdomen: Soft, nontender. Extremities: +1 edema, bilateral compression dressing. Laboratory Data: H and H 9.1/29.4. Sodium 132, potassium 4.4, bicarb 24, BUN 19, creatinine 3, calcium 8.1, phosphorus 3.2. Assessment And Plan: 1. End-stage renal disease, over volume. I am going to up the goal to 4500. We will challenge the patient. We will arrange for another session of dialysis as outpatient tomorrow. 2. Hypertension. Discontinue nifedipine. We will utilize blood pressure for more ultrafiltration. 3. Anemia of chronic kidney disease. Continue BRONWYN. 4. Secondary hyperparathyroidism. No need for binder. 5. Non-ST elevation myocardial infarction as by Cardiology. The patient is cleared from the Renal standpoint for discharge planning. time spend discussing with the patient face to face , placing order , discusse with the patient and other meat service team member including hospitalist 45 min. GAMA Voice ID: [id number] Report ID: [id number] MTDDannielle
[2020-05-03 16:34] VITALS: BP 160/71; TEMP 97.4
--- NOTE | 2020-05-03 17:09 | PN ---
Date of Progress Note: 05/03/2020 Subjective: The patient was admitted with wound infection, non-ST elevation UT. The patient is status post cardiac cath with PTCA. Physical Examination: Vital Signs: Blood pressure 156/83, pulse of 70, afebrile. Yesterday had dialysis. We managed to remove 4100. Chest: Crackles bilateral. Heart: S1, S2. Systolic murmur. Abdomen: Soft, nontender. Extremities: +2 edema. Dressing on both legs, compression dressing. Laboratory Data: H and H 9.1/29.4. Sodium 132, potassium 4.4, bicarb 24, BUN 19, creatinine 3, calcium 8.1, phosphorus 3.2, albumin 2.2. Current Medications: The patient on include carvedilol 6.25, Lasix 80 b.i.d., lisinopril 5 mg daily, hydralazine 25 t.i.d., heparin, Plavix, Epogen, nifedipine 30, Pepcid. Assessment And Plan: 1. End-stage renal disease. We will continue the patient on dialysis. We will do extra dialysis tomorrow. Today, we will challenge the patient. 2. Hypertension. Discontinue nifedipine. Continue with BLAYNE inhibitor. We will utilize blood pressure for more ultrafiltration. Next step is going to be tapering further hydralazine. 3. Anemia of chronic kidney disease. Continue BRONWYN. 4. Secondary hyperparathyroidism. No need for binder. 5. Anasarca secondary to cardiorenal. We will keep challenging the patient. Continue diuresis. 6. Non-ST elevation myocardial infarction, status post percutaneous transluminal coronary angioplasty. We will follow up with Cardiology. time spend discussing with the patient face to face , placing order , discusse with the patient and other customer care team coach including hospitalist 45 min. GAMA Voice ID: [id number] Report ID: [id number] [facility]
--- NOTE | 2020-05-06 21:55 | PN ---
Date of Progress Note: 05/02/2020 Ms. Priest is a 65-year-old woman. Dr. García took her to the labor relations supervisor yesterday secondary to a recent non-ST elevation myocardial infarction. She was found to have a normal left main. She had severe s tenosis in the LAD with a patent PRITCHETT to the LAD. Her left circumflex had a patent proximal stent wi th mid to distal portion of the left circumflex just distal to the stent and 95% stenosis, which was the culprit for the DC, stent, and angioplasty of that lesion was done. She has a complete occlusion of her RCA with collaterals from the circumflex. She had a patent PRITCHETT to the LAD, patent vein may t to the RCA. Overnight, she did very well. Her vital signs were stable. Her telemetry was normal rhythm. She had no complaint. Her chest was clear. Her right groin site was adequate without any h ematoma or ecchymosis. She had poor distal pulses, which is chronic. From our standpoint, once it i s okay with Nephrology and her primary care, she can go home. She should get back on her Plavix. Sh e should continue her Lasix, hydralazine, nifedipine, and carvedilol. I will see her in the office i n the next week or 2. JAMIA/CELESTINE Voice ID: [id number] Report ID: [id number]
== END 2020-05-03 17:15 | disposition home health service (06) | DRG 853 ==
LOC: ER 14:42 → ERHOLD 19:09 → 2ND 22:02
PROVIDERS: ADMIT Internal Medicine; ATTEND Hospitalist
PROC: 5A1D70Z Performance of Urinary Filtration, Intermittent, Less than 6 Hours Per Day (ICD-10-PCS; 2020-04-27)
PROC: 027034Z Dilation of Coronary Artery, One Artery with Drug-eluting Intraluminal Device, Percutaneous Approach (ICD-10-PCS; principal; 2020-05-01)
PROC: 4A023N7 Measurement of Cardiac Sampling and Pressure, Left Heart, Percutaneous Approach (ICD-10-PCS; 2020-05-01)
PROC: B2111ZZ Fluoroscopy of Multiple Coronary Arteries using Low Osmolar Contrast (ICD-10-PCS; 2020-05-01)
DX: A40.1 Sepsis due to streptococcus, group B (principal); N18.6 End stage renal disease; I50.33 Acute on chronic diastolic (congestive) heart failure; I21.4 Non-ST elevation (NSTEMI) myocardial infarction; I13.2 Hypertensive heart and chronic kidney disease with heart failure and with stage 5 chronic kidney disease, or end stage renal disease; J44.1 Chronic obstructive pulmonary disease with (acute) exacerbation; R18.8 Other ascites; N30.00 Acute cystitis without hematuria; E11.22 Type 2 diabetes mellitus with diabetic chronic kidney disease; E11.40 Type 2 diabetes mellitus with diabetic neuropathy, unspecified; I25.10 Atherosclerotic heart disease of native coronary artery without angina pectoris; E87.5 Hyperkalemia; D63.1 Anemia in chronic kidney disease; E87.79 Other fluid overload; E78.5 Hyperlipidemia, unspecified; R77.8 Other specified abnormalities of plasma proteins; R65.20 Severe sepsis without septic shock; Z88.1 Allergy status to other antibiotic agents; Z88.5 Allergy status to narcotic agent; Z88.8 Allergy status to other drugs, medicaments and biological substances; Z91.09 Other allergy status, other than to drugs and biological substances; Z85.42 Personal history of malignant neoplasm of other parts of uterus; Z99.2 Dependence on renal dialysis; Z95.1 Presence of aortocoronary bypass graft; Z90.710 Acquired absence of both cervix and uterus; Z90.49 Acquired absence of other specified parts of digestive tract; Z89.412 Acquired absence of left great toe; Z79.02 Long term (current) use of antithrombotics/antiplatelets; Z79.899 Other long term (current) drug therapy; Z91.14 Patient's other noncompliance with medication regimen; Z79.82 Long term (current) use of aspirin; Z20.822 Contact with and (suspected) exposure to COVID-19
CPT/HCPCS: 0240U; 36415; 51702; 71045; 80048; 80069; 80076; 81003; 81015; 82140; 82550; 82553; 82805; 82947; 83605; 83690; 83735; 83880; 84145; 84439; 84443; 84484; 85025; 85027; 85347; 85610; 85730; 87040; 87070; 87077; 87081; 87086; 87088; 87186; 87205; 90935; 93005; 93458; 93971; 96365; 96375; 99215; 99285; C1725; C1893; C9600; J0360; J0456; J0610; J0692; J0696; J1200; J1644; J1940; J2250; J2405; J2930; J3010; J3590; J7030; J7040; Q5105

== ENCOUNTER 2020-06-13 12:32 | Inpatient (IN) | payer OTHER ==
--- OUTSIDE RECORDS SUMMARY | 2020-06-13 12:45 | XMS REPORT | Continuity of Care Document ---
:1955 Author Organization [facility] t Address [address] [place] [address] Care Team Providers Name Role Phone Landy Rendon Primary Care Physician Babatunde PIERRE Attending Clinician Mk PIERRE Attending Clinician Lisa Mohamud MD Attending Clinician LISA MOHAMUD Attending Clinician Unavailable Kj PIERRE, Tracy Attending Clinician Cesia Kearns [...] Date Expiration Date Sour ce Number CAMI [id number] [address] [facility] MEDICAIDMEDICAID 00:00:00 - Ghulamromero nicolle [id number] Ce nter 2-Present Problems Condition Condition Condition [...] rosis of [address] [facility] [place] [facility] Medical artery of artery of 00 [...] l mellitus mellitus 00 Center with with 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 y y disorder, disorder, with with long-term long-term current current use of use of insulin insulin Smoker Smoker Disease Active [facility] Center Frequent Frequent Disease Active [facility] PVCs PVCs 2[facility]12 [facility] Center Essential Essential Problem Active [facility] (primary[facility] (primary[facility] s - hypertensi hypertensi Me moria on on l [facility] Depression Depression Problem Active [...] d COPD d COPD 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 [facility] current current [facility] [...] St disease disease [facility] Allergies, Adverse Reactions, Alerts Allergy Allergy Status Severity Reaction(s) Onset Inactive Treating Comm ents Source Name Type Date Date Clinician Trazodon Drug Active Nausea And [facility] Allergy Vomiting 2-12 [facility] - 00:[facility]: Medical 00 [place] Morphine Propensi Active Anaphylaxis C HI [facility] [...] 00:00: Medical s reaction 00 Center s Amoxicil Propensi Active Diarrhea [facility] kenzie-Pot ty to 04-21 [facility] - Clavulan adverse 00:00: Medical ate reaction 00 Center s Basil Propensi Active Nausea Only [facility] ty to 04-21 [facility] - adverse 00:00: Medical reaction 00 Center s Vancomyc Adverse Active vomiting [facility] in HCl Reaction [facility] Nitrogly Adverse Active vomiting [facility] cerin Reaction [facility] Morphine Adverse Active headache, [facility] Sulfate [facility] Adverse Active vomiting [facility] riley HCl Reaction [facility] Family History Family Member Diagnosis Comments Start Date Stop Date Source Natural father COPD [facility] Natural father Cancer [facility] Natural father Hypertension [facility] Natural mother No Known Problem [facility] Natural sister Asthma [facility] Natural sister COPD [facility] Social History Social Habit Start Date Stop Date Quantity Comments Source Sex Assigned At [facility] Cigarettes smoked 2019-12-31 2019[facility]12[facility]31 [facility] per 00:00:00 00:00:00 [facility] day) - Reported Cigarette 2019-12-31 2019-12-31 [facility] - pack-years 00:00:00 00:00:00 [facility] Tobacco use and 2019-12-31 2019-12-31 Never used [facility] - exposure 00:00:00 00:00:00 [facility] Alcohol intake 2019-12-31 2019-12-31 Current [facility] - 00:00:00 00:00:00 non-drinker of Medical Ce nter alcohol (finding) History of tobacco 2017-05-12 Current sm[facility] use 00:[facility]00 [facility] Smoking Status Start Date Stop Date Source Former smoker 2019-12-31 00:00:00 2019-12-31 00:00:00 [facility] Medications Ordered Filled Start Stop Current Ordering Indication Dosage Frequency Signature Comments Components Source Medication Medication Date Date Medication? Clinician (SIG) Name Name mupirocin 2019-03 Yes QD Apply [facility] (BACTROBAN) 0-03 topically Lay es - 2 % 10:49: daily. Medical ointment 00 [place] collagenase 2019-03 Yes QD Apply [facility] (SANTYL) 0-03 topically [facility] - 250 units/g 10:49: daily. Medi marilin ointment 00 [place] bumetanide 2019-03 Yes 2mg [id number] Take [address] (BUMEX) 2 0-03 [id number] by mouth 3 [facility] - MG tablet [...] EVERYDAY l AT BEDTIME [facility] Isosorbide Isosorbide Yes Franki TAKE [address] [facility] [address] Mononitrate Mononitrate Jas TABLET BY [facility] - ER ER MOUTH Memoria EVERY DAY l [facility] NIFEdipine NIFEdipine Yes Franki TAKE [address] [facility] ER ER Jas TABLET BY [facility] - MOUTH Memoria EVERY DAY l [facility] BuPROPion BuPROPion Yes Franki TAKE [address] HCl HCl Jsa TABLET BY [facility] - MOUTH Memoria EVERY DAY l [facility] Acetaminoph Acetaminoph Yes Franki (Schedule [facility] en-Codeine en-Codeine Jas III Drug) Shannon - #3 #3 TAKE 1 Memoria TABLET BY l MOUTH Outpati EVERY 6 ent HOURS Clinics NEEDED FOR PAIN Carvedilol Carvedilol Yes Franki TAKE [address] [facility] Jas TABLET BY [facility]ukes - MOUTH Memoria TWICE A l DAY [facility] Advair Advair Yes Franki INHALE 1 [facility] Diskus Diskus Jas DOSE BY [facility] - MOUTH Memoria TWICE l DAILY. [facility] RINSE ent MOUTH Clinics AFTER USE Atorvastati Atorvastati Yes Franki TAKE [address] [facility] n Calcium n Calcium Jas TABLET BY [facility] - MOUTH Memoria EVERY DAY l [facility] Allopurinol Allopurinol Yes Franki TAKE [address] [facility] [address] Jas TABLET BY [facility] - MOUTH Memoria TWICE A l DAY [facility] Gabapentin Gabapentin Yes Franki TAKE [address] [facility] Jas CAPSULE BY Lukes - MOUTH Memoria THREE l TIMES A Outpati DAY ent Clinics Clopidogrel Clopidogrel Yes Franki TAKE [address] [facility] Bisulfate Bisulfate Jas TABLET BY [facility] - MOUTH Memoria EVERY DAY l [facility] Vitamin D Vitamin D Yes Franki TAKE ONE [facility] (Ergocalcif (Ergocalcif Jas CAPSULE BY Lukes - berta) berta) MOUTH ONE Memoria TIME PER l WEEK [facility] Furosemide Furosemide Yes Franki [...] Jas UNITS [facility] es - BELOW THE [facility] SKIN IN l THE Outpati MORNING ent Clinics HydrALAZINE HydrALAZINE Yes Franki TAKE [address] [facility] [address] HCl HCl Jas TABLET BY [facility]ukes - MOUTH Memoria THREE l TIMES A Outpati DAY ent Clinics Vital Signs Vital Name Observation Time Observation Value Comments Source Heart rate 2020-01-01 08:41:00 60 /min [facility] Respiratory rate 2020-01-01 08:41:00 18 /min [facility] Oxygen saturation in 2020-01-01 08:41:00 100 /min [facility] Arterial blood by Medical Ce nter Pulse oximetry Systolic blood 2020-01-01 08:32:00 162 mm[Hg] [facility] Diastolic blood 2020-01-01 08:32:00 73 mm[Hg] [facility] Body temperature 2020-01-01 07:41:00 36.56 De[facility] Body weight 2019-12-30 04:28:00 78.2 kg [facility] BMI 2019-12-30 04:28:00 27.00 kg/m2 [facility] Body height 2019-12-25 21:05:00 170.2 cm [facility] Procedures Procedure Date / Time Performed Performing Clinician [facility] REPORT OF PROCEDURE - 2020-01-05 08:40:02 Provider, Default [facility] ENDOSCOPY SCAN Scanning [facility] RHYTHM STRIP - SCAN 2020-01-05 08:31:43 Provider, Default [facility] Scanning [facility] RHYTHM STRIP - SCAN 2020-01-05 08:31:42 Provider, Default [facility] RHYTHM STRIP - SCAN 2020-01-05 08:31:40 Provider, Default [facility] CARDIAC CATH REPORT - 2020-01-05 08:31:15 Provider, Default [facility] CARDIAC CATH REPORT - 2020-01-05 08:31:13 Rocco Sepulveda [facility] POCT-GLUCOSE METER 2020-01-01 06:33:00 Cade [facility] CBC W/PLT COUNT & AUTO 2020-01-01 05:37:00 JerichoLily [facility] COMPREHENSIVE METABOLIC 2020-01-01 05:37:00 [facility] PO[facility]SE METER 2019-12-31 20:50:00 Cade [facility] POCT-GLUCOSE METER 2019-12-31 18:00:00 Cade [facility] POCT-GLUCOSE METER 2019-12-31 11:42:00 Cade [facility] POCT-GLUCOSE METER 2019-12-31 06:29:00 Cade [facility] CBC W/PLT COUNT & AUTO 2019-12-31 06:05:00 HarvelLily [facility] COMPREHENSIVE METABOLIC 2019-12-31 06:05:[address] [facility] MAGNESIUM 2019-12-31 06:05:00 [facility] POCT-GLUCOSE METER 2019-12-30 20:13:00 Cade [facility] POCT-GLUCOSE METER 2019-12-30 16:26:00 [facility] SURGICALLY OBTAINED 2019-12-30 13:59:[address] [facility] - CULTURE + GRAM STAIN Medical [facility] ANAEROBIC CULTURE 2019-12-30 13:59:46 Tala Santacruz [facility] SURGICALLY OBTAINED 2019-12-30 13:54:56 Tala Santacruz [facility] I [facility] - CULTURE + GRAM STAIN Medical [facility] ANAEROBIC CULTURE 2019-12-30 13:54:56 Tala Santacruz [facility] TISSUE EXAM 2019-12-30 13:38:00 Santacruz, Tala [facility] I&D,BONE FOOT 2019-12-30 13:11:00 Tala Santacruz [facility] POCT-GLUCOSE METER 2019-12-30 11:39:00 [facility] POCT-GLUCOSE METER 2019-12-30 05:39:00 [facility] SARS-COV2/RT-PCR ([facility] & 2019-12-30 05:11:00 Pat Mohamud [facility] - REF LABS) [facility] CBC W/PLT COUNT & AUTO 2019-12-30 05:09:00 HarvelLily [facility] METABOLIC 2019-12-30 05:09:[address] [facility] POCT-GLUCOSE METER 2019-12-29 21:09:00 [facility] POCT-GLUCOSE METER 2019-12-29 11:10:00 Pat Mohamud [facility] HEMODIALYSIS INPATIENT 2019-12-29 08:12:17 Brandie Khan [facility] POCT-GLUCOSE METER 2019-12-29 06:10:00 [facility] CBC W/PLT COUNT & AUTO 2019-12-29 05:50:00 HarvelLily [facility] METABOLIC 2019-12-29 05:50:[address] [facility] POCT-GLUCOSE METER 2019-12-28 20:37:00 [facility] POCT-GLUCOSE METER 2019-12-28 17:38:00 [facility] POCT-GLUCOSE METER 2019-12-28 13:12:00 [facility] POCT-GLUCOSE METER 2019-12-28 05:43:00 Cade [facility] CBC W/PLT COUNT & AUTO 2019-12-28 04:41:00 Lily Echavarria KATHRYN S t [facility] COMPREHENSIVE METABOLIC 2019-12-28 04:41:[address] [facility] ABD AO & LOWER EXT 2019-12-28 02:30:00 Sakina Tamayo [facility] - ANGIOS/ POSS PPI [facility] POCT-GLUCOSE METER 2019-12-27 20:32:00 Pat Mohamud [facility] MR LOWER EXTREMITY 2019-12-27 16:30:00 Jericho Lily [facility] - WITHOUT IV CONTRAST [facility] POCT-GLUCOSE METER 2019-12-27 14:06:00 [facility] WOUND CULT[facility] + GRAM 2019-12-27 12:02:00 Annia Delgado CH I [facility] STAIN [facility] POCT-GLUCOSE METER 2019-12-27 06:44:00 Pat Mohamud [facility] POCT-GLUCOSE METER 2019-12-27 05:49:00 Pat Mohamud [facility] CBC W/PLT COUNT & AUTO 2019-12-27 05:05:00 HarvelChloeu [facility] METABOLIC 2019-12-27 05:05:[address] [facility] HEMODIALYSIS INPATIENT 2019-12-27 00:31:18 Brandie Khan [facility] POCT-GLUCOSE METER 2019-12-26 20:51:00 Pat Mohamud [facility] TRANSFUSION SERVICE 2019-12-26 18:02:[address] [facility] REPORT - SCAN Scanning [facility] POCT-GLUCOSE METER 2019-12-26 16:42:[address] [facility] [address]CTA AAA AND RUNOFF 2019-12-26 15:27:00 Sakina Tamayo [facility] POCT-GLUCOSE METER 2019-12-26 11:59:00 Pat Mohamud [facility] POCT-GLUCOSE METER 2019-12-26 06:09:00 [facility] CBC W/PLT COUNT & AUTO 2019-12-26 04:36:00 HarvelLily [facility] 2019-12-26 04:36:[address] [facility] PREPARE LEUKO-REDUCED RBC 2019-12-25 23:54:00 Brandie Khan [facility] POCT-GLUCOSE METER 2019-12-25 20:51:00 [facility] TRANSFUSION SERVICE 2019-12-25 18:04:[address] [facility] REPORT - SCAN Scanning [facility] POCT-GLUCOSE METER 2019-12-25 17:01:00 [facility] POCT-GLUCOSE METER 2019-12-25 11:25:00 [facility] CBC W/PLT COUNT & AUTO 2019-12-25 05:59:00 Lily Echavarria [facility] 2019-12-25 05:59:00 Harvel [facility] POCT-GLUCOSE METER 2019-12-25 05:58:00 [facility] TRANSFUSE LEUKO-REDUCED 2019-12-24 19:06:[address] [facility] RED BLOOD CELLS [facility] POCT-GLUCOSE METER 2019-12-24 16:15:00 Pat [facility] ABORH, MANUAL 2019-12-24 08:25:[address] [facility] POCT-GLUCOSE METER 2019-12-24 06:11:00 Cade [facility] TYPE AND SCREEN, 2019-12-24 06:08:00 Brandie Khan [facility] es - AUTOMATED [facility] CBC W/PLT COUNT & AUTO 2019-12-24 05:51:00 Lily [facility]arria [facility] 2019-12-24 05:51:[address] [facility] POCT-GLUCOSE METER 2019-12-23 21:23:00 Pat Mohamud [facility] POCT-GLUCOSE METER 2019-12-23 16:42:00 Pat Mohamud [facility] MR LOWER EXTREMITY JOINT 2019-12-23 15:34:00 Tala Santacruz hy [facility] - ONLY WITHOUT IV CONTRAST Medical [place] LEFT MR BRAIN WITHOUT IV 2019-12-23 15:34:00 Lily [facility]avarria [facility] - CONTRAST [facility] POCT-GLUCOSE METER 2019-12-23 11:16:00 Pat Mohamud [facility] ARTERIAL DOPPLER LEGS 2019-12-23 09:38:[address] [facility] BILATERAL [facility] AMMONIA 2019-12-23 04:05:00 Mariela Carrasco [facility] CBC W/PLT COUNT & AUTO 2019-12-23 04:00:[address] [facility] COMPREHENSIVE METABOLIC 2019-12-23 04:00:[address] [facility] SARS-COV2/RT-PCR ([facility] & 2019-12-23 03:59:00 Pat Mohamud [facility] - REF [facility] POCT-GLUCOSE METER 2019-12-22 20:34:00 Pat Mohamud [facility] POCT-GLUCOSE METER 2019-12-22 16:43:00 Pat Mohamud [facility] POCT-GLUCOSE METER 2019-12-22 11:31:00 Pat Mohamud [facility] POCT-GLUCOSE METER 2019-12-22 06:30:00 [facility] CBC W/PLT COUNT & AUTO 2019-12-22 05:14:[address] [facility] COMPREHENSIVE METABOLIC 2019-12-22 05:14:[address] [facility] POCT-GLUCOSE METER 2019-12-21 20:26:00 Cade [facility] POCT-GLUCOSE METER 2019-12-21 17:22:00 Cade [facility] POCT-GLUCOSE METER 2019-12-21 12:35:00 Cade [facility] POCT-GLUCOSE METER 2019-12-21 07:20:00 Cade [facility] POCT-GLUCOSE METER 2019-12-21 05:52:00 Cade [facility] C-REACTIVE PROTEIN 2019-12-21 04:39:00 Annia Delgado [facility] CBC W/PLT COUNT & AUTO 2019-12-21 04:39:00 [facility] COMPREHENSIVE METABOLIC 2019-12-21 04:39:00 [facility] US ABDOMEN COMPLETE 2019-12-20 21:17:00 Sakina Chen [facility] POCT-GLUCOSE METER 2019-12-20 20:23:00 Cade [facility] POCT-GLUCOSE METER 2019-12-20 17:31:[address] [facility] [address] BRAIN WITHOUT IV 2019-12-20 16:04:00 [facility] 2019-12-20 14:41:00 [facility] BLOOD GAS, ARTERIAL 2019-12-20 14:28:00 [facility] XR FOOT 2 VIEWS LEFT 2019-12-20 11:55:00 Annia Delgado I [facility] POCT-GLUCOSE METER 2019-12-20 11:28:00 Cade [facility] POCT-GLUCOSE METER 2019-12-20 06:20:00 Cade [facility] OCCULT BLOOD, STOOL 2019-12-20 06:19:00 [facility]APTT 2019-12-20 05:06:00 [facility] Sakina Carrillo [facility] FIBRINOGEN 2019-12-20 05:06:00 [facility] D-DIMER 2019-12-20 05:06:00 [facility] IRON, TIBC, % SAT. 2019-12-20 05:06:00 [facility] Sakinara Carrillo [facility] (WITHOUT FERRITIN) [facility] VITAMIN B12 AND FOLATE 2019-12-20 05:06:00 [facility] Sakina Carrillo [facility] RETICULOCYTE COUNT 2019-12-20 05:06:00 [facility] HAPTOGLOBIN 2019-12-20 05:06:00 [facility] TSH/FREE T4 IF INDICATED 2019-12-20 05:06:00 [facility] Sakina Iqba l [facility] FERRITIN 2019-12-20 05:06:00 [facility] Sakina Carrillo [facility] ANTI-NUCLEAR ANTIBODY 2019-12-20 05:06:[address] [facility] (ROGER) [facility] KAPPA / LAMBDA LIGHT 2019-12-20 05:06:00 Sakina Chen CH I [facility] PROTEIN ELECTROPHORESIS, 2019-12-20 05:06:00 Sakina Chenba l [facility] PERIPHERAL BLOOD SMEAR - 2019-12-20 05:06:[address] [facility] PATHOLOGIST REVIEW [facility] r CBC W/PLT COUNT & AUTO 2019-12-20 05:06:00 Marcial Chapa [facility] COMPREHENSIVE METABOLIC 2019-12-20 05:06:[address] [facility] T4, FREE 2019-12-20 05:06:00 April Sakina Carrillo [facility] ROGER TITER AND PATTERN 2019-12-20 05:06:00 AprilSakina carcamo [facility] POCT-GLUCOSE METER 2019-12-19 20:35:00 [facility] POCT-GLUCOSE METER 2019-12-19 16:06:00 Evens Mohamudruel [facility] HEMODIALYSIS INPATIENT 2019-12-19 16:02:09 Sharri Fernando [facility] CBC W/PLT COUNT & AUTO 2019-12-19 05:35:00 Marcial Chapa [facility] BASIC METABOLIC PANEL (7) 2019-12-19 05:35:00 Marcial Chapa [facility] LACTATE DEHYDROGENASE 2019-12-19 05:35:[address] [facility] (LDH) [facility] POCT-GLUCOSE METER 2019-12-19 05:24:00 Evens Mohamudruel [facility] POCT-GLUCOSE METER 2019-12-18 21:35:00 Cade Pat [facility] POCT-GLUCOSE METER 2019-12-18 16:05:00 Cade [facility] POCT-GLUCOSE METER 2019-12-18 07:45:00 Cade [facility] POCT-GLUCOSE METER 2019-12-18 06:14:00 Cade [facility] POCT-GLUCOSE METER 2019-12-17 21:44:00 Cade [facility] POCT-GLUCOSE METER 2019-12-17 17:52:00 Cade [facility] POCT-GLUCOSE METER 2019-12-17 12:22:00 Cade [facility] HEMODIALYSIS INPATIENT 2019-12-17 10:33:08 Brandie Khan [facility] POCT-GLUCOSE METER 2019-12-17 06:18:00 Cade [facility] CBC W/PLT COUNT & AUTO 2019-12-17 04:14:00 Marcial Chapa [facility] COMPREHENSIVE METABOLIC 2019-12-17 04:13:[address] [facility] PANEL [facility] POCT-GLUCOSE METER 2019-12-16 20:55:00 Pat Mohamud [facility] POCT-GLUCOSE METER 2019-12-16 18:24:00 [facility] HEPATITIS B SURFACE 2019-12-16 16:02:00 [facility] ANTIBODY [facility] HEPATITIS B SURFACE 2019-12-16 16:02:00 [facility] ANTIGEN [facility] HEPATITIS C ANTIBODY 2019-12-16 16:02:00 [facility] HEPATITIS B CORE 2019-12-16 16:02:00 [facility] - ANTIBODY, TOTAL [facility] POCT-GLUCOSE METER 2019-12-16 14:47:00 [facility] IR TUNNELED DIALYSIS 2019-12-16 14:26:[address] [facility] CATHETER [facility] HEMODIALYSIS INPATIENT 2019-12-16 12:37:39 Bill [facility] POCT-GLUCOSE METER 2019-12-16 11:01:00 [facility] XR CHEST 1 VIEW 2019-12-16 05:55:[address] [facility] PORTABLE/BEDSIDE [facility] POCT-GLUCOSE METER 2019-12-16 05:51:00 [facility] CBC W/PLT COUNT & AUTO 2019-12-16 04:08:00 Marcial Chapa [facility] BASIC METABOLIC PANEL (7) 2019-12-16 04:08:00 Marcial Chapa [facility] PROTHROMBIN TIME/INR 2019-12-16 04:08:00 Marcial Chapa [facility] SARS-COV2/RT-PCR ([facility] & 2019-12-16 01:45:00 Pat Mohamud [facility] Plan of Care Planned Activity Planned Date Details Comments Source Future Scheduled 2020-12-[address] [facility] - Test 00:00:00 examination Medical Center (regime/therapy) [code = 733133126] Future Scheduled 2020-12-[address] [facility] - Test 00:00:00 [facility] colon (procedure) [code = 805690018] Future Scheduled 2020-03-[address] [facility] - Test 00:00:00 (12+) [code = Medical Center DEPRESSION SCREENING (12+)] Future Scheduled 2020 PNEUMOCOCCAL 65+ YRS [facility] - Test 00:00:00 (1 of 1 - Medical Center [id number]) [code = PNEUMOCOCCAL 65+ YRS (1 of 1 - [id number])] Future Scheduled 2019-11-30 INFLUENZA VACCINE (#1) [facility] Test 00:00:00 [code = INFLUENZA Medical nter VACCINE (#1)] Future Scheduled 2017-08-[address] Janna kes - Test 00:00:00 measurement [facility] (procedure) [code = 01592120] Future Scheduled [address] [facility] - Test 00:00:00 (procedure) [code = Medical Center 19345930] Future Scheduled [address] [facility] - Test 00:00:00 malignant neoplasm of [facility] cervix (procedure) [code = 516016516] Future Scheduled 1965 DIABETIC EYE EXAM [facility] - Test 00:00:00 [code = DIABETIC EYE Medical Center EXAM] Future Scheduled 1965 Urine screening [facility] - Test 00:00:00 protein (procedure) Medical Center [code = 994783348] Future Scheduled [address] [facility] - Test 00:00:00 malignant neoplasm of [facility] breast (procedure) [code = 360577559] Encounters Start End Encounter Admission Attending Care Care Encounter Source Date/Time Date/Time Type Type Clinicians Facility Department ID 2020-03-28 2020-03-29 Emergency Chato Fine [facility] [id number] 15:50:00 20:31:00 Maureen Terrazas [id number] [place] [id number] [place] [id number] 2018-11-17 2018-11-17 [facility] [id number] 11:30:00 11:30:00 [facility] 2018-10-06 2018-10-06 [facility] [id number] 16:14:00 16:14:00 [facility] M [facility] 2018-09-28 2018-09-28 [facility] [id number] 10:30:00 10:30:00 [facility] ent [facility] Results Test Description Test Time Test Comments Results Result Comments Source ANAEROBIC CULTURE 2020-01-04 10:26:00 Test Item Value Reference Range Interpretation Comme nts CULTURE (SERVANDOAKER) (test code = 1095) No anaerobes isolated Tissue [id number] 10:21:00 Test Item Value Reference Range Interpretation Comments Case Report (test code Surgical Pathology = 104) Report Case: [id number] Authorizing Provider: Tala Santacruz DPM Collected: 12/30/2019 01:38 PM Ordering Location: [address] Med/Surg Received: 12/31/2019 06:52 AM Pathologist: Jovita Griffith MD Specimens: A) - Soft Tissue, Other, left 5th proximal phalanx B) - Metatarsal, Left, left 5th metatarsal DIAGNOSIS (test code = [id number] 3220) FuZzEwMzNcZnRuYmpcdWMx MOytdmCmDMors3FuT8BeHf AwMFxhbnNpXGRlZmxhbmcx HUDzYYR3jyDoXTBmHCucRP EwCKlfGc9frQQavKegUnCi FIQll3ykrpZVjkyiqYw7p7 gmRQLlEiM5zEOzXKxeB3bt iwXdrDEqRCXqZXi0cF38KI HdmJ4thYXdIXntzuBnJhH8 SNqkGPCsRdU2NHLmvJAjTG JcF8xoDHSpPCkxILRfVNtt bOYiNJA8hHlwb4B0vZReqZ MalKkiNlAmHgFpZQPSv7Th EVm8bBvmW1LiPEBmXuC2yC QgUGFyYWdyYXBoIEZvbnQ7 xU06GLwzihF6cHZpp5Nss0 9ib185zT1nuZFwXFB7PNKs BLWerSQtORWfTJF8PRIlhD MlT4o5NjAeiYQjC0I1GuKp gIDuL8N0NjXwsVPqB0P8Ws BmyPIzLAOaaLAiPs4zxUYi gNKaue2zjf50XGL2n0LjwP zaOUL9NBD3PaMnUm2uiVGh RLQaCD5iLpNvgDMtMYHebb 93gPmpZHmwahYjvN9iBiOl QFRhsIKsEHYiPQ9biVZgIE QvcN1vorhgBVAgGyKgdnbk GSEeeZalnqScTq5wwAwrDI I5KCgzX1izhC3yXyV8YJjd A4zstP7oPDe3RFhhoFG0XE UdzU7bPC8vphgci3bnDyBw UD4ntipgg4khSiJwUU9owe e0l6ekBnTyGE5wmtrhs7xc NzIwXGhlYWRlcnkwXGZvb3 AipswaTTNyl6WdC6KknCgi V17tvIxaN97qKHQjbMlpyF 6nsQviuP5kOlKvTsZdCXbw bFxwbGFpblxmMVxmczIwXG qrnbipXLMpUVwxL4hpQtXj CXRvtIhnPGfoc3JzVOUpUO HnNqCnVZ9tPe4ZIKukEAED PVDVZRJCATTPFm4ZLT7XRH INJWNZIN3VGADGGU5JR4e6 IBBrbqDvIWNlUUZSIT1xB8 vYBSFMRjYMLujDFR4RWJBV UlRJTEFHRSBXSVRIIFNVUl JOKH5VHY3MPZYZOAMCCNUF RCBDSFJPTklDIElORkxBTU 1BVElPTlxwYXJccGFyIEIu IEJPTkUsIExFRlQgRklGVE ggTUVUQVRBUlNBTCwgQklP UFNZOlxwYXIgICAgLSBBQ1 HYYYJBD6VQQ17DSDhBPQmX IFxwYXIgICAgLSBTRVBBUk JTSGTQOjYIKJDFKHIwF7Ii OsfPLq3YI04ILLMHCEBHVX ZGQ4ZRJPBIFDYONWXFH4NY I6ByMS5BT7MHV0mXOOMZTN BHUkFOVUxBVElPTiBUSVNT NCAyVs0KUVSEBY1KQNWsjx 65ZIF4BxFsd9Q1WCZ1LGQc WONfn3gnORCzkOCgReOkQx NcZnRuYmpcdWMxXGRlZmYw p5efe205gFKvo8eaQBKrDs S4bFVyCKElhYKpG516JVQi CWwta7cpw2FiLPZriLZms0 I4KIXPfdsmlKo9qAunZ59n n5Z0TbnrG2zoYKYgIOLrO4 WqKR3yORSsLjy7WNH3JFB1 RPOdRGJcW5GiIJ7wPNBetA IqOHk7m4hecKcfNAFuMSW2 w1luZPlgckByWF2gxq0kcB z9f1wtssLeQLPkROYclAJK LSXvQ3TnhZfoXa2ahCr9gN wcXzbgTPO9Kiu6GN8nhh10 cxf4bVfeJQZfixovKzM0WH ekEOMlbbvwPAw5CQefFEBh oFO4OKOrrPWpN3FcOBQkRK 3ynoh3QXR4ROdqILUwWmU9 NDBcaGVhZGVyeTcyMFxmb2 76VQE4MlXjLX7qN4Kjr0L2 mW0grPFoFDEgpDSqKtVpBP Apqf1ilJOkBAyqu2DyNAI5 udC7mCWyhXIzEEKfFnF8XZ twKZ3fif38FGBvLDD5ko0h bGNccGdicmRyaGVhZFxwZ2 MxCPUpf711SMZgE1XdIRMn t6R2coFxQkVmBTVkgEA2zi S2IHEcAN9itunnh7ioJFlj YOrbZNPtxyW8neD2DPWeeN PlP9VgdQ5dRWNgLW8swmlx i0weRLP9WCwtRUPlDFJ7Jk KjCXVbl9Sdwqw3DnRga8Ni jKEwMYucY74ny207RCPnym UyT2uhxIHtxaggwODwdnnw XVvdxvM4OGFbSJubuozmGH CdALppD2wxJeHdTJOidCnh JUauf9FqOVRkAVVzRiKgrP VhEXYsOfv8HPIssJOiMUUl RcPrY8cfqfblSlSBZBDna7 pyV7iuqEHYuPUyV9XoGTvb usItLRbgBVjqVIJ3JRF7Lv 95HsX0CEGkag46 CPT Code(s) (test code q4thmOSdMJUhgMLuMuFuCZ = 3357) RaEMDwv5jhUTXwaUSeZvEo MzNcZnRuYmpcdWMxXGRlZm Epm0awa953sXGfe9vgSGNf NlW7sUFzGVVesELqL994q6 vgs5sthaSzyMG5ZEFiRUO7 XSszfrOidtA4FAprxVGtNz I9GXzvgeVuSItbznHrrbWf Teh8KVXzD053IUC5mXruk5 htZIB2RHLoPLGkHtQsTn1q fGWnT144GBGwRFPUSOEriM n6QWMrhdGrquOeyCMUv199 Y627u1mfGOCrntRbbJrBtz byj5afJ824LLBvfHRujnHj CrUoPIGneEBjeUN3NESbBU 3mgmssVyWwRY3ifjutSfQy BW8bzju9LbXcLA9nckyiLt WoYQrzTLSnffcrLLLum6Px hpqfYA2qB5Bgh8F8eM9ynG FdRZBsxFTjKxHbREGpsd8b xMErHHhnz0QlMNP1mbX6vW SzgYLrLSOcEW74Jeqja7Xk LpugJJC9JMWeabJol1Ydk0 kzQcBqefCkP0spL8LxVZAo BASiJVGmIoNijtXod3Krc2 AoxZCqvDj3z5yhNZMpXVWs nQaqp4esSGL9QYZdD6H6eP Hut0zjJXfsRILqlXX7tmwn ESziYILnpfJ3skebEMocSN HmoZX4wvkxKOvrYVQbLtM3 qoouZMbqRNCjIBV5WXlcm6 11HBF8ZFtwAqsoHJclCMOm bmNvbnRccGduZGVjXHBsYW luXHBsYWluXGYwXGZzMjRc sZkadEicwR9rMpMfZkMfAF ozVM4pBWJtZ1prgTAgLCSt PWVqC0lrNvRoiY9ycRkwLO kdgcIoBN4RG4Y2CBMlsoT3 KDKaOoJ0ZmvkDJOfBGzkYE EgeDJccGFyfQ== CLINICAL HISTORY (test j5sozSKmEDGoqYJpIsEpTF code = 1688) BeKTGhu2rqDAQcqECoNeVr MzNcZnRuYmpcdWMxXGRlZm Axx5lae178bMWod8riPZCj KmS5bEHpPZYgqCMmD630m1 opp3ogqjMbxVW9MJMuQBF4 WDpyigFicsR6DBzuqIOrId Z3RXscnxJfIQfyfdTgltYd Khu4OCFcN740UYL2cAwzd9 gtPJE9ALKbKVDmKpYkRi2k sPCwQ040XTAeZERGCTJocY u5ARHbegMpkxBwcGDFy641 V828c3woJVArfoKpuBiZwd yys6otQ503NUYykDMestPf AhWjOVKgrFFatSR4JDBfYG 8lxcczSbVoSN0zlppkRvEc VB7tbvp3ScPdTS0muqyyEb WyNXbrDRQubmwgJKBti7Sr bwnjXP2aT4Vkk2O2kV1njT YjJTYlbLVaWxFjPGKoiu0t iHUtVYhvk7KtFOG7tnU3nW RbrGVaPWEmFD30Bqagz0Jh FgkrFXP9DYOtduQvz5Blw0 xiKsBwkdHuO1goA1BwTGAg PWHwPNJhCgBtziFtn4Ugw7 NkiFEuzMj9t2cxONSwLMFu sDuic8xbAVE3VURzH5H5cB Yun7jdLWaoJEAscLL0bwrq OXfgGRRtkpH6hpudHFzwQN OobYC8ltyrBRftOUHgTcQ4 zbinUJmfKEUeMBK9JXtwa7 29WAA8NGazAthjYVvuTMWt bmNvbnRccGduZGVjXHBsYW luXHBsYWluXGYwXGZzMjRc bEcihByzeX8gQjLlOeSbDJ xlGN0kKTArZ8lseXOsXPUf GQOtE5jjDcDfbE8cvQgkBX tqiyTcZQ8cmIYgyBachOw9 yCOar8HyyMJgrCF7rYgllM F2WROkbyEmmGlxqClbMTRs u4BxWhnsLVVuhhZuFNAqHV RccGFyfQ== SPECIMEN SOURCE (test z5dahFKaSNTrwLLpGpEgVH code = 3377) MrOHHei0sqEVAiyGDaEuCl MzNcZnRuYmpcdWMxXGRlZm Nmp1ucb738xUJzr2pjEMNm DfF5kAGrOUCgqEZqS683v3 yjm4cqsuNutUW3PDCdYGU2 TPektyXhqsQ7UTvhxQUpVx U3CRzlbmNuVGnkegScyqSa Tnz1EORlF439IGV7oUpes4 qcCIA3ZQTtBXQbKgFoDu6o wMFaJ028TYWdVKCAQYEehS s1TLUymlNojtQsgABVs109 Z175y4zvGXBaskChzDjSxs mzi3oaO985OZUhvQSurkAj DpTpOYInaETgiTG2ADTxUA 4mirvcDeUeCJ0kijxrUcYp QH1cxxw2BjIxLM5xijzpJa ZeLKenOQMwpvufJTHfi6Yx qgqkYW7zN3Bki6A7dX3zdK ZcLPTppLKvNhZzDWVgeo5t pAZiQUhgv5MkGKH5naL0iN RezMFhIXHuBW16Nhxuh4Ht GmyoJNY8GBUkplDdb1Eit8 tuGwDoguTrC9btZ0UwLMKb ZUBnOARePfAglvIdv4Jba4 NdcCHmdRh8g7niNANdQFWi lHsaw6pgQTY2HTMcX2A9iE Vqb7dhJKceJUGgpZV7vdsn HTgpBKVplgL8hgguSQsyUA GxlIL3vcvxSLlsTKKoGmP3 mqlyWTcwSWChGLF3EJkwv7 21HEL5YIikCdbsDWxbSKFf bmNvbnRccGduZGVjXHBsYW luXHBsYWluXGYwXGZzMjRc lDcmtRgwaQ8jYaAvSkUrNE eqXO8nWZFqC5vvpPFzDVZp ATEnA1uvCbXlrK1ueCzkPL xmczIwIEEuIExlZnQgNXRo UWJiv1uhaMKhYPJmJFrnmr liETIyXZszRaJbDDNyLL1d oVA5ZAMoTMvhDSZduj3= GROSS DESCRIPTION (test v5eyvVOlDDKjwKOsMvKuZM code = 3366) UaHSAdp3qhXGJfkGOzQaDv MzNcZnRuYmpcdWMxXGRlZm Mbc5tgu980hYQly0nqPTGs ReU8oNAiXHWgbNCfT080QF WoFDrdw0rhn0MuWRFxpEOf n3J8HLNJcrgmaKn2nLfdE0 8zn4E7GrnpC5obRHSjSPOm T9SmPL1yPBJfQoh7BJV9MU Z1UUOpXWIhE1VlFR0cTXIp cJPxYUw3j2aucLpdFDQdNJ I9e4whYPxylgMnNE6cbg1q bZq3l9xwsdYfKMEaNLIcjT VIHVKlJ0PhdPysHf8erJk4 uJlaIljrXHA6Uow4EV8dsq 48aol0bPluKKLqjotnJuB3 XZtgBLJunihdPTr3IXriLK JnbDcyMFxtYXJncjcyMFxt YXJndDcyMFxtYXJnYjcyMF ddGQFzGOX0WXrvc723YWA8 AZaqr1ugi1jxmRXdZjh7BG RnKaUhVnvoYKclk0Ujb0lr RUQpym4nZKA4kNTeuYsbc5 U0vYKePALseCOnuhPiIPTa SeE3XKvzKO3ryn33OGIpWO J4oq1skWOdzUcogkArjLDl HFeqW7ZcCNYyt818AJObU6 VnTFVcy7M5neBgGiGlAVCm dHC3keV2FZQbVFk7wLNufk P3tbEgcGXsA2ivaC08BfDi wVWpA7LplY33PqOahAZgI0 YqcJ38WcNoqYIxZ2OfxO38 LeKxoZSjXHSkiBBpTf2ikX IrwKPio3WyaWDnUKlqX32v t826TVUyxpUeM8yoyQHnnh pyvWTydjrrBBsmauM3HIJh XHBsYWluXGYwXGZzMjBcbG FuZzEwMzNcaGljaFxmMFxk EnMsUPObOIjqY1szTxNeOe BmTAOPqKHnpP2reeMZISkr ABOvI5IkirKdCFkxRQSdoV J0cNPmNKfdJqFnFCDpb2e2 jDL8qLIzvZM5cMPpiFlvIO 7llUGdAL8mJH5dJRcmIRqt gqWdz5KnHB66tSYhgsGbux QgZGVzaWduYXRlZCBhcyAi t44ocZE5sJNehTWeFE66kW ZmQstsW10cx0xxoZFke0Gj q3dizRPmjEKfaT45IKHbcr UbFgLyG27ybgGjDE8lLRF8 cmluZyAwLjcgeCAwLjMgeC IvLnQqY49dXDJbXIYamMAp sO0ickUphsLvzZMjlOE4JM WuEI23fZMinDozkY25hiFU TUZcpjLpyR16erQdOKGtwK Yla9f8pGzcnq4aeMWqHGHj rgHPuKOsoU5mqtISXNceCL FeR0BovfPcOJtzXVFefDK0 fQWcDHxnQjMnJVXal6h3wC S5fGSysLZ2cKWdoNkoPE6g oNBeUT7vZQ7zAUneAFbaav Ggi6VtOI99xGLutnShlrGq ZGVzaWduYXRlZCBhcyAibW I2FRJadqQlhPRkTHN5Xyur Z32oi2hfjJIjo7StIy64gy BfKRAbOkVrj95uwYnzj0Zv XYOvIJNhl11vUUVkPJyiSI 34oaGzJOGolOLwypziRl3b YZktCN14RBfmRH60VMHtJJ adBKKeC0PiH2N4DU2miTeq IHNwZWNpbWVuIGlzIGVudG grUZf6AMtqrOQchqnlRXrn czIwXGxhbmcxMDMzXGhpY2 evKvXvWZMisSxaINmmk8Jl XEGfUJKlOzJbBcMdRQ0hDT akuL4kUJXlWOprp75wcLXr m46zRNGoMXnnUFQkZRZoHf BcbGFuZzEwMzNcaGljaFxm VEniLrGdUEIbVKweC3tvQx BcZnMyMCAgTUcvZXdccGFy fQ== MICROSCOPIC DESCRIPTION i8vgmATlCXUraDGbIaLrCP (test code = 3371) DqSTWmu4gaAHIpqRMnBiKh MzNcZnRuYmpcdWMxXGRlZm Nym1afm995wGPdz2pxAVXk RaB3bSVeHAKyhCPjX205y1 jvf4ktfxSeiIH5DTRsBKJ8 PTqwraUivkX5ZLqyxXNqTv Z0HPzhvnSpITobnlBtvsBn Xib1EHWdW706GBV8aEqyj6 oqZUQ2NTDnAENyBfZdRj5b uQXpA386DGVqIBXUHIKtiD s7HTPtjiOftkVvzZUOa456 Q748j8ymQTWaycOqcIcAgc nta4aiC160UDDlfONnuiQw QnWdUFIxvKMehXA1BWBaPS 3qjrjiFgHzUV4cqaknZdBa MT5hfni1NeGiKA5kzlaiIw ZrGAxbGWWutzunDYMem6Ul vlbvOY2aA4Dft6X1uW5lhA BiPHVhmTSgRzZrLTIsqs1r hUGjEIhtn4NiWHJ8qiG3eP FqhSZrTLHbFY27Plooz7Um XfysORQ4UYOkhtEmp3Edo4 oaPeUvhuDmC9xjG6FaJVHu MXCwMCUkEaNrxkSrl0Dmx2 TyzJFfdCo2i5mvRTEtNATw vMsri2ppKBF2FOMqR4Y9xM Ilk6ezONbtUGWcbIL1gtkr BMegFZBrewD6bzltBXtxZE QwiJW9fktoLQroDOPkBjD2 xvmxEKpbLMWbXPL7TMymm0 45VDH6VLuyTksdYXaeSFJg bmNvbnRccGduZGVjXHBsYW luXHBsYWluXGYwXGZzMjRc dOloaPhigB9hFuYlDbLbPP cyCC4eCOScT4jqqORhDNJm CVXfL0vkSfPtpZ5biKzuAZ calyOrLJLoYm1zLCGpBj6s bWVkLlxwYXJ9 Gross assessment was [facility] performed at ([facility], Department = 2777) of Pathology, [address] [place] [address], Technical component was [facility] performed at ([facility], = 2778) Department of Pathology, [address] [place] [address], Professional component [facility] was performed at ([facility], Department code = 2779) of Pathology, [address] [place] [address], [facility] [id number] 10:21:00Surgical Pathology Report Case: [id number] Authorizing Provider: Tala Santarcuz DPM Collected: 12/30/2019 01:38 PM Ordering Location: [address] Med/Surg Received: 12/31/2019 06:52 AM Pathologist: [...] TISSUE FORMATION Signing Pathologist Direct Phone Line: [phone] signed by Jovita Griffith MD on 01/04/2020 at 10:21 AMMG/[id number] of left 5th metatarsal, ulcer of bilateral [...] entirely B1 and into decal solution. MG/Veronica-B. Performed.[facility], Department of Pathology, [address] [place] [address], [facility], Department of Pathology, [address] [place] [address], [facility], [facility] of [facility]ology, [address] [place] [address], XXUTVLOFS [id number] 10:47:00 Test Item Value Reference Interpretation Comments [...] negative Staphylococcus SURGICALLY OBTAINED CULTURE + GRAM [id number] 08:31:00 Test Item Value Reference Range Interpretation Comments CULTURE (BEAKER) (test code No growth = 1095) GRAM STAIN RESULT (BEAKER) <1+ WBCs (test code = 1123) GRAM STAIN RESULT (BEAKER) No organisms seen (test code = 73309) SURGICALLY OBTAINED CULTURE + GRAM [id number] 08:19:00 Test Item Value Reference Interpretation Comments Range CULTURE (BEAKER) STENOTROPHOMONAS A 2+ Sten otrophomonas (test code = 1095) MALTOPHILIA maltophil ia Levofloxacin (test S code = 22) Trimethoprim + S Sulfamethoxazole (test code = 47) GRAM STAIN RESULT <1+ WBCs (BEAKER) (test code = 1123) GRAM STAIN RESULT No organisms seen (BEAKER) (test code = 146300) POC-Glucose [id number] 06:47:00 Test Item Value Reference Range Interpretation Comments POC-Glucose Meter (test 102 mg/dL 70-110 : TE STED AT [facility] code = 1538) [address] [place] [address]: Associate Professor Of Literacy/Techni artemio ID = [id number] for Anne Salgado Lab Interpretation (test Normal code = 16914-1) [facility] [id number] 06:47:00 Test Item Value Reference Range Interpretation Comments POC-GLUCOSE METER 102 mg/dL 70-110 : TESTED A T [facility] 1317 (BEAKER) (test code [address], = 1538) [facility] [place] [address]: Associate Professor Of Literacy/Techni artemio ID = [id number] for Anne Busby Comprehensive metabolic [id number] 06:34:00 Test Item Value Reference Range Interpretation Comments Protein, Total (test 6.1 See_Comment [Autom ated code = 2885-2) message] The system which generated this result transmit merna reference range : 6.0 - 8.5 gm/dL . The reference range was not u sed to interpret th is result as normal/abnormal . Albumin (test code = 2.3 g/dL 3.5-5 L 68529-0) Alkaline Phosphatase 81 U/L 30-115 (test code = 6768-6) Total Bilirubin (test 0.4 mg/dL 0.1-1.2 code = 1975-2) Sodium (test code = 137 meq/L 148-071 2228-2) Potassium (test code 3.7 meq/L 3.6-5.5 = 2823-3) Chloride (test code = 100 meq/L 98-106 2075-0) CO2 (test code = 28 meq/L 20-29 2028-9) BUN (test code = 14 mg/dL 10-26 3094-0) Creatinine (test code 2.31 mg/dL 0.5-1.2 H = 2160-0) Glucose (test code = 100 mg/dL 70-110 2345-7) Calcium (test code = 7.5 mg/dL 8.5-10.5 L 75179-5) AST (test code = 15 U/L 5-40 1920-8) ALT (test code = 6 U/L 5-50 1742-6) EGFR (test code = 21 mL/min/1[place]73 [place] [address]-5) NOT ACCURATE CREATININE CLEARANCE IN PREDICTING GLOMERULAR FILTRATION RATE . ESTIMATED GFR I S NOT APPLICABLE FOR DIALYSIS PATIEN ZIA (test code = ZIA) Associate Professor Of Literacy ID - ADMIN Lab Interpretation Abnormal (test code = 49153-3) [facility] Center[facility]PRE[facility] MET[facility]OLIC [id number] 06:34:00 Test Item Value Reference Range Interpretation [...] 347) EGFR (BEAKER) (test 21 mL/min/1.73 ESTIMA MERNA GFR IS code = 1092) sq m NOT ACCURATE CREATININE CLEARANCE IN PREDICTING GLOMERULAR FILTRATION RATE . ESTIMATED GFR I S NOT APPLICABLE FOR DIALYSIS PATIEN TS. Associate Professor Of Literacy ID - ADMINCBC with platelet count + automated [id number] 06:06:00 Test Item Value Reference Range Interpretation Comments WBC (test code = 6690-2) 5.7 See_Comment [A utomated message] The system V2[employer] generated this result transmitted ref erence range: 4.0 - 10 .0 K/L. The refe rence range was not u sed to interpret this result as normal/abnor mal. RBC (test code = 789-8) 2.41 See_Comment L [Au tomated message] The system [employer] generated this result transmitted ref erence range: 4.00 - 5 .00 M/L. The refe rence range was not u sed to interpret this result as normal/abnor mal. MCHC (test code = 786-4) 30.8 See_Comment L [A utomated message] The system [employer] generated this result transmitted ref erence range: 32.0 - 3 6.0 GM/DL. The refe rence range was not u sed to interpret this result as normal/abnor mal. Hematocrit (test code = 23.4 % 36-46 L 4544-3) MCV (test code = 787-2) 97.1 fL 82-99 MCH (test code = 785-6) 29.9 pg 27-33 RDW (test code = 788-0) 22.0 % 12-15 H Platelets (test code = 84 See_Comment L [Aut omated message] 777-3) The system [employer] generated this result transmitted ref erence range: 150 - 43 0 K/CU MM. The referen ce range was not u sed to interpret this result as normal/abnor mal. MPV (test code = 10.5 fL 6-11.5 53591-6) nRBC (test code = 413) 0 See_Comment [Aut omated message] The system [employer] generated this result transmitted ref erence range: 0 - 0 /1 00 WBC. The refere nce range was not u sed to interpret this result as normal/abnor mal. % Neutros (test code = 62 % 429) % Lymphs (test code = 29 % 430) % Monos (test code = 5 % 431) % Eos (test code = 432) 2 % % Baso (test code = 437) 1 % # Neutros (test code = 3.54 See_Comment [Aut omated message] 670) The system [employer] generated this result transmitted ref erence range: 1.80 - 8 .00 K/L. The refe rence range was not u sed to interpret this result as normal/abnor mal. # Lymphs (test code = 1.66 See_Comment [Auto mated message] 414) The system [employer] generated this result transmitted ref erence range: 1.48 - 4 .50 K/L. The refe rence range was not u sed to interpret this result as normal/abnor mal. # Monos (test code = 0.28 See_Comment [Autom ated message] 415) The system [employer] generated this result transmitted ref erence range: 0.00 - 1 .30 K/L. The refe rence range was not u sed to interpret this result as normal/abnor mal. # Eos (test code = 416) 0.12 See_Comment [Au tomated message] The system V[employer] generated this result transmitted ref erence range: 0.00 - 0 .50 K/L. The refe rence range was not u sed to interpret this result as normal/abnor mal. # Baso (test code = 417) 0.07 See_Comment [A utomated message] The system [employer] generated this result transmitted ref erence range: 0.00 - 0 .20 K/L. The refe rence range was not u sed to interpret this result as normal/abnor mal. Immature 0 % 0-0 Granulocytes-Relative (test code = 2801) Lab Interpretation (test Abnormal code = 34500-6) [facility] W/PLT COUNT & AUTO [id number] 06:06:00 Test Item Value Reference Range Interpretation [...] PERCENT (BEAKER) (test code = 2801) POCT-GLUCOSE [id number] 21:02:00 Test Item Value Reference Range Interpretation Comments POC-GLUCOSE METER 167 mg/dL 70-110 H : TESTED A T [facility] [address] (BEAKER) (test code [facility] [address], = 1538) [place] [address]: Associate Professor Of Literacy/Techni artemio ID = [id number] for Ashley austin Anne POCT-GLUCOSE [id number] 18:12:00 Test Item Value Reference Range Interpretation Comments POC-GLUCOSE METER 121 mg/dL 70-110 H : TESTED A T [facility] [address] (BEAKER) ([facility] = [facility]) [place] [id number]: Associate Professor Of Literacy/Techni artemio ID = [id number] for Cortney Cohen POCT-GLUCOSE [id number] 11:54:00 Test Item Value Reference Range Interpretation Comments POC-GLUCOSE METER 117 mg/dL 70-110 H : TESTED A T [facility] [address] (BEAKER) (test code [address], = 1538) [facility] NAMED [facility] [address]: Associate Professor Of Literacy/Techni artemio ID = [id number] for Cortney Cohen COMPREHENSIVE METABOLIC [id number] 06:47:00 Test Item Value Reference Range Interpretation [...] 347) EGFR (BEAKER) (test 16 mL/min/1.73 ESTIMA MERNA GFR IS code = 1092) sq m NOT ACCURATE CREATININE CLEARANCE IN PREDICTING GLOMERULAR FILTRATION RATE . ESTIMATED GFR I S NOT APPLICABLE FOR DIALYSIS PATIEN TS. Associate Professor Of Literacy ID - [id number] 06:42:00 Test Item Value Reference Range Interpretation Comments Magnesium (test code = 1.6 mg/dL 1.5-3 77677-7) ZIA (test code = ZIA) Associate Professor Of Literacy ID - ADMIN Lab Interpretation (test Normal code = 83691-6) [facility]-GLUCOSE [id number] 06:42:00 Test Item Value Reference Range Interpretation Comments POC-GLUCOSE METER 101 mg/dL 70-110 : TESTED A T [facility] [address] (BEAKER) (test code [address], = 1538) [facility] [place] [address]: Associate Professor Of Literacy/Techni artemio ID = [id number] for Anne Busby [id number] 06:42:00 Test Item Value Reference Range Interpretation Comments MAGNESIUM (BEAKER) (test code = 1.6 mg/dL 1.5-3.0 627) Associate Professor Of Literacy ID - ADMINCBC W/PLT COUNT & AUTO [id number] 06:37:00 Test Item Value Reference Range Interpretation [...] PERCENT (BEAKER) (test code = 2801) POCT-GLUCOSE [id number] 20:24:00 Test Item Value Reference Range Interpretation Comments POC-GLUCOSE METER 155 mg/dL 70-110 H : TESTED A T [facility] 1317 (BEAKER) (test code [facility] [address] [facility], = 1538) [facility] NAMED [facility] [address]: Associate Professor Of Literacy/Techni artemio ID = [id number] for Anne Busby POCT-GLUCOSE [id number] 16:39:00 Test Item Value Reference Range Interpretation Comments POC-GLUCOSE METER 164 mg/dL 70-110 H : Notified RN/MD: TESTED (BEAKER) (test code AT [facility] [address] = 1538) [facility] [address]: Associate Professor Of Literacy/Techni artemio ID = [id number] for Moshe kim Alondra SARS-CoV2/RT-PCR (Asymptomatic ONLY)2019-12-30 15:57:00 Test Item Value Reference Range Interpretation Comments SARS-COV2/RT-PCR Negative Not Detected, (test code = Negative, See 80692-0) external report for linked test SARS-COV-2 [facility] PERFORMING LAB (test code = 63285-3) ZIA (test code = Negative result for [...] of the Act. Fact Sheet for Healthcare Providers:https://www.ModuleQ/sites/default/f loco/product/documents/F act_Sheet_HC_Providers_L ahi_YBZS-EsH-4.pdf Fact Sheet for Healthcare Patients:https://www.[employer]/sites/default/fi les/product/documents/Fa ct_Sheet_Patients_Lyra_S ARS-CoV-2.pdf Performing Laboratory:[facility] [place] [address] [facility] ([facility])2019-12-30 15:57:00 Test Item Value Reference Range Interpretation Comments SARS-COV2/RT-PCR (test Negative Not Detected, Negative, code = 9248011) See external report for linked test SARS-COV-2 PERFORMING LAB [facility] (test code = 1291783) Negative result for this test determines that [...] 564(g) of the Act.Fact Sheet for Healthcare Providers:https://www.Daily[employer].com.[employer]/sites/default/files/product/documents/Fact_Shee t_WW_Pjeciwfri_Uxlm_RJWI-OvZ-2.pdfFact Sheet for Healthcare Patients:https://www.[employer].com.[employer]/sites/default/files/product/ documents/Ycre_Zjidx_Sezvgubx_Btzc_XXYH-QwR-2.pdfPerforming Laboratory:[facility], [place] [address]SKGV-QGKUEAC METER 2019-12-30 11:50:00 Test Item Value Reference Range Interpretation Comments POC-GLUCOSE METER 82 mg/dL 70-110 : Notified RN/MD: TESTED (ROBERT) (test code = AT [facility] [address] [place] [address]) [facility] [address]: Associate Professor Of Literacy/Techni artemio ID = [id number] for Alondra Kelley WOUND CULTURE + GRAM [id number] 10:45:00 Test Item Value Reference Interpretation Comments [...] gram negative (BEAKER) (test code rods = 125966) POCT-GLUCOSE [id number] 05:50:00 Test Item Value Reference Range Interpretation Comments POC-GLUCOSE METER 103 mg/dL 70-110 : Notified RN/MD: TESTED (BEAKER) (test code AT [place] [address] [address] = 1538) [facility] [address]: Associate Professor Of Literacy/Techni artemio ID = [id number] for Zonia Healy COMPREHENSIVE METABOLIC [id number] 05:44:00 Test Item Value Reference Range Interpretation [...] 347) EGFR (BEAKER) (test 18 mL/min/1.73 ESTIMA MERNA GFR IS code = 1092) sq m NOT ACCURATE CREATININE CLEARANCE IN PREDICTING GLOMERULAR FILTRATION RATE . ESTIMATED GFR I S NOT APPLICABLE FOR DIALYSIS PATIEN TS. Associate Professor Of Literacy ID - ADMINCBC W/PLT COUNT & AUTO [id number] 05:29:00 Test Item Value Reference Range Interpretation [...] PERCENT (BEAKER) (test code = 2801) POCT-GLUCOSE [id number] 21:21:00 Test Item Value Reference Range Interpretation Comments POC-GLUCOSE METER 185 mg/dL 70-110 H : Notified RN/MD: TESTED (BEAKER) (test code AT [facility] [address] = 1538) [place] [address]: Associate Professor Of Literacy/Techni artemio ID = [id number] for Zonia Healy POCT-GLUCOSE [id number] 11:21:00 Test Item Value Reference Range Interpretation Comments POC-GLUCOSE METER 143 mg/dL 70-110 H : Notified RN/MD: TESTED (BEAKER) (test code AT [facility] [address] = 1538) [place] [address]: Associate Professor Of Literacy/Techni artemio ID = [id number] for Alondra Kelley COMPREHENSIVE METABOLIC [id number] 06:27:00 Test Item Value Reference Range Interpretation [...] 347) EGFR (BEAKER) (test 15 mL/min/1.73 ESTIMA MERNA GFR IS code = 1092) sq m NOT ACCURATE CREATININE CLEARANCE IN PREDICTING GLOMERULAR FILTRATION RATE . ESTIMATED GFR I S NOT APPLICABLE FOR DIALYSIS PATIISA TS. Associate Professor Of Literacy ID - ADMINPOCT-GLUCOSE [id number] 06:21:00 Test Item Value Reference Range Interpretation Comments POC-GLUCOSE METER 73 mg/dL 70-110 : Notified RN/MD: TESTED (BEAKER) (test code = AT [address] [facility] 1538) [facility] [address]: Associate Professor Of Literacy/Techni artemio ID = [id number] for Zonia Healy CBC W/PLT COUNT & AUTO [id number] 06:00:00 Test Item Value Reference Range Interpretation [...] PERCENT (BEAKER) (test code = 2801) POCT-GLUCOSE [id number] 20:48:00 Test Item Value Reference Range Interpretation Comments POC-GLUCOSE METER 84 mg/dL 70-110 : Notified RN/MD: TESTED (BEAKER) (test code = AT [address]LS [address]) [place] [facility] NAMED [facility] [address]: Associate Professor Of Literacy/Techni artemio ID = [id number] for Zonia Healy POCT-GLUCOSE [id number] 17:51:00 Test Item Value Reference Range Interpretation Comments POC-GLUCOSE METER 59 mg/dL 70-110 L : TESTED A T [facility] [address] (BEAKER) (test code = [address], 15[address]) [place] [address]: Associate Professor Of Literacy/Techni artemio ID = [id number] for Christina r Berta POCT-GLUCOSE [id number] 13:28:00 Test Item Value Reference Range Interpretation Comments POC-GLUCOSE METER 67 mg/dL 70-110 L : TESTED A T [facility] [address] (BEAKER) (test code = [address], 15[address]) [place] [address]: Associate Professor Of Literacy/Techni artemio ID = [id number] for Christina r, Berta POCT-GLUCOSE [id number] 06:04:00 Test Item Value Reference Range Interpretation Comments POC-GLUCOSE METER 94 mg/dL 70-110 : TESTED A T [address] [address] (BEAKER) (test code = [address], 1538) [place] [address]: Associate Professor Of Literacy/Techni artemio ID = [id number] for Anahi Sherman COMPREHENSIVE METABOLIC [id number] 05:35:00 Test Item Value Reference Range Interpretation [...] 347) EGFR (BEAKER) (test 18 mL/min/1.73 ESTIMA MERNA GFR IS code = 1092) sq m NOT ACCURATE CREATININE CLEARANCE IN PREDICTING GLOMERULAR FILTRATION RATE . ESTIMATED GFR I S NOT APPLICABLE FOR DIALYSIS PATIEN TS. Associate Professor Of Literacy ID - ADMINCBC W/PLT COUNT & AUTO [id number] 04:56:00 Test Item Value Reference Range Interpretation [...] PERCENT (BEAKER) (test code = 2801) POCT-GLUCOSE [id number] 20:43:00 Test Item Value Reference Range Interpretation Comments POC-GLUCOSE METER 137 mg/dL 70-110 H : TESTED A T [facility] 1317 (BEAKER) (test code [address], = 1538) [facility] NAMED [facility] [address]: Associate Professor Of Literacy/Techni artemio ID = [id number] for Anahi Sherman MR, EXTREMITY, LOWER, WITHOUT CONTRAST, [id number] 16:55:00MRI LEFT FOOT.Unlisted Reason for Exam - [...] MDReport Verified Date/Time: 12/27/2019 16:55:07 Reading Location: [facility] Radiology Reading Room MR lower extremity without IV contrast left [id number] 16:55:00Interface, External Ris In - 12/27/2019 4:57 [...] in the first metatarsal remnant. Signed: Lynda Ringort Verified Date/Time: 12/27/2019 16:55:07 Reading Location: [facility] Radiology Reading Room Electronically signed by: Adrienne CHU 12/27/2019 04:55 [facility] [id number] 14:19:00 Test Item Value Reference Range Interpretation Comments POC-GLUCOSE METER 232 mg/dL 70-110 H : [facility] (BEAKER) (test code [address], = 1538) [facility] NAMED [facility] 77 478: Associate Professor Of Literacy/Techni artemio ID = [id number] for Christina rBerta CT, CTA AAA, W/ GÓMEZ.EXT.[id number] 11:38:00Bilateral lower extremities Addendum BeginsREPORT STATUS:A I agree with the nonvascular findings with exceptions and emphasis as below:*Moderate right and small left pleural effusions are partially visualized.*Large volume ascites.*Diffuse anasarca*The reflux of contrast into the hepatic veins is concerning for volume overload. Signed: Molyl Linares MDRtieraort Verified Date/Time: 12/27/2019 11:38:28 Reading Location: [facility] Diagnostic Imaging Reading Room - [facility] F1 [address]Addendum EndsFINAL REPORT CT angiography of the abdominal aorta and runoff, 26-Dec-19 INDICATION: This is a 64 year old female with with lower leg penetrating trauma presents for assessment. TECHNIQUE: Spiral acquisition before and during intravenous contrast administration using a Parsely multidetector CT scanner. Images were obtained before [...] identified. However, significant calcification identified of the [place] left SFA, for example at image 516, [...] the right popliteal artery is patent, with uqlf-ad-nbtbvugy diffuse calcification identified with no obstructive lesion [...] However, in the distal left SFA, the [place] artery substantial calcification identified and the stent [...] atherosclerosis identified. 4. In the right, the [place] right SFA is not filled by contrast [...] dictated regarding the non-vascular findings by the Pelletizer Radiologist. Signed: Shlomo Dockery MDReport Verified Date/Time: 12/27/2019 07:59:51 Reading Location: [place] [address] CT Reading Room Protein electrophoresis, serum 2019-12-27 09:29:00 Test Item Value Reference Range Interpretation Comments Albumin Fraction 2.4 g/dL 3.5-5.5 L (test code = 405) Alpha 1 Fraction 0.4 g/dL 0.2-0.4 (test code = 389) Alpha 2 Fraction 0.4 g/dL 0.5-0.9 L (test code = 390) Beta Fraction (test 0.8 g/dL 0.6-1.1 code = 392) Gamma Globulin 2.3 g/dL 0.7-1.7 H Fraction (test code = 391) Interpretation (test Decreased albumin, code = 2615) suggestive of renal damage. Polyclonal elevation of gamma fraction, suggesting chronic inflammatory response. No monoclonal bands detected. Pathologist: (test Rocio code = 2616) MD Josie (electronic signature) Protein, Total (test 6.3 See_Comment [Autom ated code = 2660) message] The system which generated this result transmitted reference range : 6.0 - 8.3 gm/dL . The reference range was not used to interpr et this result as normal/abnormal . ZIA (test code = Associate Professor Of Literacy ID - ZIA) LEONIE Jay Lab Interpretation Abnormal (test code = 09196-5) [facility] CenterPROTEIN ELECTROPHORESIS, [id number] 09:29:00 Test Item Value Reference Range Interpretation [...] chronic inflammatory response. No monoclonal bands detected. [id number] Rocio Galindo MD (BEAKER) (test code = (electronic signature) 2616) PROTEIN TOTAL SERUM, 6.3 gm/dL 6.0-8.3 SPEP (ROBERT) (test code = 2660) Associate Professor Of Literacy ID - LEONIE OLIVEIRA AAA and [id number] 07:59:00Interface, External Ris In - 12/27/2019 11:40 AM CDTAddendum BeginsREPORT STATUS:A I agree with the nonvascular findings with exceptions and emphasis as below:*Moderate right andsmall left pleural effusions are partially visualized.*Large volume ascites.*Diffuse anasarca*The reflux of contrast into the hepatic veins is concerning for volume overload. Signed: Skyla Molly MDReport Verified Date/Time: 12/27/2019 11:38:28 Reading Location: [facility] Diagnostic Imaging Reading Room - [place] [address] [address] EndsFINAL REPORT CT angiography of the abdominal aorta and runoff, 26-Dec-19 INDICATION: This is a 64 year old female with with lower leg penetrating trauma presents for assessment. TECHNIQUE: Spiral acquisition before and during intravenous contrast administration using a Parsely multidetector CT scanner. Images were obtained before [...] identified. However, significant calcification identified of the [place] left SFA, for example at image 516, [...] the right popliteal artery is patent, with hsgc-xe-buwdwzvd diffuse calcification identified with no obstructive lesion [...] However, in the distal left SFA, the [place] artery substantial calcification identified and the stent [...] atherosclerosis identified. 4. In the right, the [place] right SFA is not filled by contrast [...] dictated regarding the non-vascular findings by the Pelletizer Radiologist. Signed: Shlomo Dockery MDReport Verified Date/Time: 12/27/2019 07:59:51 Reading Location: [place] [address] CT [facility] [id number] 06:56:00 Test Item Value Reference Range Interpretation Comments POC-GLUCOSE METER 39 mg/dL 70-110 LL : Notified RN/: [facility]ED ([facility] (test code = AT [facility] L [address]) [facility] [address]: Associate Professor Of Literacy/Techni artemio ID = [id number] for Anahi Sherman COMPREHENSIVE METABOLIC [id number] 06:15:00 Test Item Value Reference Range Interpretation Comments TOTAL PROTEIN 5.7 gm/dL 6.0-8.5 L (BEAKER) (test code = 770) ALBUMIN (BEAKER) 2.2 g/dL 3.5-5.0 L (test code = 1145) ALKALINE PHOSPHATASE 62 U/L 30-115 (AKER) (test code = 346) BILIRUBIN TOTAL 0.5 [...] 347) EGFR (BEAKER) (test 14 mL/min/1.73 ESTIMA MERNA GFR IS code = 1092) sq m NOT ACCURATE CREATININE CLEARANCE IN PREDICTING GLOMERULAR FILTRATION RATE . ESTIMATED GFR I S NOT APPLICABLE FOR DIALYSIS PATIEN TS. Associate Professor Of Literacy ID - ADMINPOCT-GLUCOSE [id number] 06:01:00 Test Item Value Reference Range Interpretation Comments POC-GLUCOSE METER 55 mg/dL 70-110 L : Notified RN/MD: TESTED (BEAKER) (test code = AT SLS L [address] [facility] 1538) [facility] [address]: Associate Professor Of Literacy/Techni artemio ID = [id number] for Anahi Sherman CBC W/PLT COUNT & AUTO [id number] 05:44:00 Test Item Value Reference Range Interpretation [...] PERCENT (BEAKER) (test code = 2801) POCT-GLUCOSE [id number] 21:03:00 Test Item Value Reference Range Interpretation Comments POC-GLUCOSE METER 278 mg/dL 70-110 H : Notified RN/MD: TESTED (BEAKER) (test code AT [address] = 1538) [facility] [address]: Associate Professor Of Literacy/Techni artemio ID = [id number] for Anahi Sherman POCT-GLUCOSE [id number] 16:53:00 Test Item Value Reference Range Interpretation Comments POC-GLUCOSE METER 70 mg/dL 70-110 : TESTED A T [facility] [address] (BEAKER) (test code = [address], [address]) [place] [address]: Associate Professor Of Literacy/Techni artemio ID = [id number] for Nalini Jean Baptiste POCT-GLUCOSE [id number] 12:11:00 Test Item Value Reference Range Interpretation Comments POC-GLUCOSE METER 97 mg/dL 70-110 : TESTED A T [facility] [address] (BEAKER) (test code = [address], [address]) [place] [address]: Associate Professor Of Literacy/Techni artemio ID = [id number] for Nalini Jean Baptiste POCT-GLUCOSE [id number] 06:21:00 Test Item Value Reference Range Interpretation Comments POC-GLUCOSE METER 71 mg/dL 70-110 : TESTED A T [facility] [address] (BEAKER) (test code = [address], [address]38) [place] [address]: Associate Professor Of Literacy/Techni artemio ID = [id number] for NwHolly hubbard COMPREHENSIVE METABOLIC [id number] 05:50:00 Test Item Value Reference Range Interpretation [...] 347) EGFR (BEAKER) (test 15 mL/min/1.73 ESTIMA MERNA GFR IS code = 1092) sq m NOT ACCURATE CREATININE CLEARANCE IN PREDICTING GLOMERULAR FILTRATION RATE . ESTIMATED GFR I S NOT APPLICABLE FOR DIALYSIS PATIEN TS. Associate Professor Of Literacy ID - ADMINCBC W/PLT COUNT & AUTO [id number] 05:17:00 Test Item Value Reference Range Interpretation [...] (BEAKER) (test code = 2801) Prepare Leuko-Red [id number] 23:54:00 Test Item Value Reference Range Interpretation Comments CROSSMATCH (test code = 2264) COMPATIBLE Unit ABO (test code = O Pos 7586385) UNIT NUMBER (test code = [id number] 934-0) Status (test code = 7009368) [facility] Blood Bank Product (test code RED BLOOD CELLS = 2263) PRODUCT CODE (test code = C0432P50 933-2) [facility] CenterPOCT-GLU[facility] [id number] 21:03:00 Test Item Value Reference Range Interpretation Comments POC-GLUCOSE METER 87 mg/dL 70-110 : TESTED A T [facility] [address] (BEAKER) (test code = [address], 1538) [place] [address]: Associate Professor Of Literacy/Techni artemio ID = [id number] for Nwad iufu, Holly POCT-GLUCOSE [id number] 17:12:00 Test Item Value Reference Range Interpretation Comments POC-GLUCOSE METER 79 mg/dL 70-110 : TESTED A T [facility] [address] (BEAKER) (test code = [address], 1538) [place] [address]: Associate Professor Of Literacy/Techni artemio ID = [id number] for Akhil rsRachelleea POCT-GLUCOSE [id number] 11:37:00 Test Item Value Reference Range Interpretation Comments POC-GLUCOSE METER 262 mg/dL 70-110 H : TESTED A T [facility] [address] (BEAKER) (test code [address], = 1538) [facility] [place] [address]: Associate Professor Of Literacy/Techni artemio ID = [id number] for Nalini Jean Baptiste COMPREHENSIVE METABOLIC [id number] 06:29:00 Test Item Value Reference Range Interpretation [...] 347) EGFR (BEAKER) (test 18 mL/min/1.73 ESTIMA MERNA GFR IS code = 1092) sq m NOT ACCURATE CREATININE CLEARANCE IN PREDICTING GLOMERULAR FILTRATION RATE . ESTIMATED GFR I S NOT APPLICABLE FOR DIALYSIS PATIEN TS. Associate Professor Of Literacy ID - ADMINCBC W/PLT COUNT & AUTO [id number] 06:12:00 Test Item Value Reference Range Interpretation [...] PERCENT (BEAKER) (test code = 2801) POCT-GLUCOSE [id number] 06:09:00 Test Item Value Reference Range Interpretation Comments POC-GLUCOSE METER 83 mg/dL 70-110 : Notified RN/MD: TESTED (BEAKER) (test code = AT SLS L [address]) [facility] [address]: Associate Professor Of Literacy/Techni artemio ID = [id number] for Anahi Sherman POCT-GLUCOSE [id number] 16:26:00 Test Item Value Reference Range Interpretation Comments POC-GLUCOSE METER 182 mg/dL 70-110 H : Notified RN/MD: TESTED (BEAKER) (test code AT [address] = 1538) [facility] [address]: Associate Professor Of Literacy/Techni artemio ID = [id number] for Alondra Kelley, [id number] 09:17:00 Test Item Value Reference Range Interpretation Comments Rh Factor (test code = POS 2589) ABO Grouping (test code O PINK TOP 12/24/19 @ 08 = 2588) [facility] CenterType and screen, [id number] 07:31:00 Test Item Value Reference Range Interpretation Comments ABO/RH AUTOMATED (BEAKER) (test O POSITIVE ECHO code = 2260) Ab Scrn (test code = 890-4) NEGATIVE ECHO [facility] CenterCOMPREHENSIVE METABOLIC [id number] 06:42:00 Test Item Value Reference Range Interpretation [...] 347) EGFR (BEAKER) (test 14 mL/min/1.73 ESTIMA MERNA GFR IS code = 1092) sq m NOT ACCURATE CREATININE CLEARANCE IN PREDICTING GLOMERULAR FILTRATION RATE . ESTIMATED GFR I S NOT APPLICABLE FOR DIALYSIS PATIEN TS. Associate Professor Of Literacy ID - ADMINPOCT-GLUCOSE [id number] 06:23:00 Test Item Value Reference Range Interpretation Comments POC-GLUCOSE METER 88 mg/dL 70-110 : TESTED A T [facility] [address] (BEAKER) (test code = [address], 1538) [facility] NAMED [facility] 77 [address]: Associate Professor Of Literacy/Techni artemio ID = [id number] for Anne Busby CBC W/PLT COUNT & AUTO [id number] 06:23:00 Test Item Value Reference Range Interpretation [...] PERCENT (BEAKER) (test code = 2801) POCT-GLUCOSE [id number] 21:38:00 Test Item Value Reference Range Interpretation Comments POC-GLUCOSE METER 126 mg/dL 70-110 H : TESTED A T [facility] [address]17 (BEAKER) (test code [address], = 1538) [facility] NAMED [facility] 77 [address]: Associate Professor Of Literacy/Techni artemio ID = [id number] for Anne Busby POCT-GLUCOSE [id number] 16:54:00 Test Item Value Reference Range Interpretation Comments POC-GLUCOSE METER 89 mg/dL 70-110 : Notified RN/MD: TESTED (BEAKER) (test code = AT SLS L [address]) [place], [facility] NAMED [facility] [address]: Associate Professor Of Literacy/Techni artemio ID = [id number] for Alondra Kelley MR, EXTREMITY, LOWER, JOINT, WITHOUT CONTRAST, [id number] 16:10:00Unlisted Reason for Exam - Click Yes [...] Jordan Verified Date/Time: 12/23/2019 16:10:32 Reading Location: [address] Ortho Consult Reading Room MR lower extremity joint only without IV contrast left [id number] 16:10:00Interface, External Ris In - 12/23/2019 4:12 [...] Jordan Verified Date/Time: 12/23/2019 16:10:32 Reading Location: [facility] C013X Ortho Consult Reading [facility], [facility]RAIN, WITHOUT [id number] 15:43:00Unlisted Reason for Exam - Click Yes [...] Date/Time: 12/23/2019 15:43:24 MR brain without IV [id number] 15:43:00Interface, External Ris In - 12/23/2019 3:45 [...] Signed: Berta Muniz Verified Date/Time: 12/23/2019 15:43:24 [facility]2019-12-23 14:16:00 Test Item Value Reference Range Interpretation Comments SARS-COV2/RT-PCR (test Negative Not Detected, Negative, code = 5043360) See external report for linked test SARS-COV-2 PERFORMING LAB [facility] (test code = 2493001) Negative result for this test determines that [...] 564(g) of the Act.Fact Sheet for Healthcare Providers:https://www.[employer]ict[employer]/sites/default/files/product/documents/Fact_Shee j_OA_Qvtszealw_Pyeh_LRDP-YqQ-2.pdfFact Sheet for Healthcare Patients:https://www.[employer]ict[employer]/sites/default/files/product/ documents/Vdmr_Cgeje_Hmhqazjs_Vtbe_KZTB-KsD-0.pdfPerforming Laboratory:[facility], [place] [address]Ohnlb / lambda light chains, [id number] 12:25:00 Test Item Value Reference Interpretation Comments Range [place] Lt Chain,Free 474.4 mg/L 3.3-19.4 H (test code = 70854-2) Lambda Lt 225.6 mg/L 5.7-26.3 H Chain,Free (test code = 92848-7) [place]/Lambda,Free 2.1 0.26-1.65 H Free annabelle a/lambda (test code = ratio in serum of 4745284) normal individu als is 0.26-1.65. Excessproductio n [...] (test code = Performing Lab ZIA) [email or web address] [facility] [address] [place] [address] Jaguar Stein MD, PhD, CORI Lab Interpretation Abnormal (test code = 54518-5) [facility] CenterPOCT-GLUCOSE [id number] 11:27:00 Test Item Value Reference Range Interpretation Comments POC-GLUCOSE METER 189 mg/dL 70-110 H : Notified RN/MD: TESTED (ROBERT) (test code AT [facility] [address] = 1538) [facility] [address]: Associate Professor Of Literacy/Techni artemio ID = [id number] for Alondra Kelley ARTERIAL DOPPLER LEGS, [id number] 11:22:00Reason for exam:->non healing ulcer , non [...] MDReport Verified Date/Time: 12/23/2019 11:22:31 Reading Location: [facility] Radiology Reading Room Arterial Doppler Legs [id number] 11:22:00 Interface, External Ris In - 12/23/2019 [...] MDReport Verified Date/Time: 12/23/2019 11:22:31 Reading Location: [facility] Radiology Reading Room [facility] HospitalCOM[facility] [id number] 04:44:00 Test Item Value Reference Range Interpretation [...] 347) EGFR (BEAKER) (test 17 mL/min/1.73 ESTIMA MERNA GFR IS code = 1092) sq m NOT ACCURATE CREATININE CLEARANCE IN PREDICTING GLOMERULAR FILTRATION RATE . ESTIMATED GFR I S NOT APPLICABLE FOR DIALYSIS PATIEN TS. Associate Professor Of Literacy ID - ADMINCBC W/PLT COUNT & AUTO [id number] 04:35:00 Test Item Value Reference Range Interpretation [...] H PERCENT (BEAKER) (test code = 2801) [id number] 04:29:00 Test Item Value Reference Range Interpretation Comments Ammonia (test code = 36 See_Comment [Autom ated 63668-1) message] The system which generated this result transmit merna reference range : 17 - 80 mol/L . The reference range was not u sed to interpret th is result as normal/abnormal . ZIA (test code = ZIA) Associate Professor Of Literacy ID - ADMIN Lab Interpretation Normal (test code = 85807-7) [facility] CenterAMMONIA2020-09-24 04:29:00 Test Item Value Reference Range Interpretation Comments AMMONIA (BEAKER) (test code = 348) 36 mol/L 17-80 Associate Professor Of Literacy ID - ADMINPOCT-GLUCOSE [id number] 20:45:00 Test Item Value Reference Range Interpretation Comments POC-GLUCOSE METER 95 mg/dL 70-110 : TESTED A T [facility] [address] (BEAKER) (test code = [address], 1538) [place] [address]: Associate Professor Of Literacy/Techni artemio ID = [id number] for Anne Busby POCT-GLUCOSE [id number] 17:08:00 Test Item Value Reference Range Interpretation Comments POC-GLUCOSE METER 107 mg/dL 70-110 : TESTED A T [facility] [address] (BEAKER) (test code [address], = 1538) [place] [address]: Associate Professor Of Literacy/Techni artemio ID = [id number] for Jordyn Fonseca POCT-GLUCOSE [id number] 11:55:00 Test Item Value Reference Range Interpretation Comments POC-GLUCOSE METER 135 mg/dL 70-110 H : TESTED A T [facility] [address] (BEAKER) (test code [address], = 1538) [place] [address]: Associate Professor Of Literacy/Techni artemio ID = [id number] for Jordyn Fonseca ROGER Titer & [id number] 11:40:00 Test Item Value Reference Range Interpretation Comments ROGER Titer (test code = 27209-7) 1:40 ROGER Pattern (test code = 1781) Speckled [facility] CenterAnti-Nuclear Antibody (ROGER)2019-12-22 11:40:00 Test Item Value Reference Range Interpretation Comments ROGER (test code = 20928-9) Positive Negative A ZIA (test code = ZIA) Test performed by IFA method. Lab Interpretation (test Abnormal code = 61707-1) [facility] CenterANTI-NUCLEAR ANTIBODY (ROGER)2019-12-22 11:40:00 Test Item Value Reference Range Interpretation Comments ANTI-NUCLEAR ANTIBODY (ROGER) (BEAKER) Positive Negative A (test code = 418) Test performed by IFA method.ROGER TITER AND [id number] 11:40:00 Test Item Value Reference Range Interpretation Comments ROGER TITER (BEAKER) (test code = :40 1541) ROGER PATTERN (BEAKER) (test code = Speckled 1781) POCT-GLUCOSE [id number] 06:44:00 Test Item Value Reference Range Interpretation Comments POC-GLUCOSE METER 92 mg/dL 70-110 : TESTED A T [address] [address] (BEAKER) (test code = [address], 1538) [facility] NAMED [facility] [address]: Associate Professor Of Literacy/Techni artemio ID = [id number] for Anne Busby COMPREHENSIVE METABOLIC [id number] 06:35:00 Test Item Value Reference Range Interpretation [...] 347) EGFR (BEAKER) (test 13 mL/min/1.73 ESTIMA MERNA GFR IS code = 1092) sq m NOT ACCURATE CREATININE CLEARANCE IN PREDICTING GLOMERULAR FILTRATION RATE . ESTIMATED GFR I S NOT APPLICABLE FOR DIALYSIS PATIEN TS. Associate Professor Of Literacy ID - ADMINCBC W/PLT COUNT & AUTO [id number] 06:16:00 Test Item Value Reference Range Interpretation [...] PERCENT (BEAKER) (test code = 2801) POCT-GLUCOSE [id number] 20:38:00 Test Item Value Reference Range Interpretation Comments POC-GLUCOSE METER 85 mg/dL 70-110 : TESTED A T [facility] [address] (BEAKER) (test code = [address], 1538) [place] [address]: Associate Professor Of Literacy/Techni artemio ID = [id number] for Anne Busby POCT-GLUCOSE [id number] 18:14:00 Test Item Value Reference Range Interpretation Comments POC-GLUCOSE METER 112 mg/dL 70-110 H : TESTED A T [facility] [address] (BEAKER) (test code [address], = 1538) [place] [address]: Associate Professor Of Literacy/Techni artemio ID = [id number] for Berta Servin POCT-GLUCOSE [id number] 13:00:00 Test Item Value Reference Range Interpretation Comments POC-GLUCOSE METER 77 mg/dL 70-110 : TESTED A T [address] [address] (BEAKER) (test code = [address], 1538) [place] [address]: Associate Professor Of Literacy/Techni artemio ID = [id number] for Berta Servin POCT-GLUCOSE [id number] 07:32:00 Test Item Value Reference Range Interpretation Comments POC-GLUCOSE METER 60 mg/dL 70-110 L : TESTED A T [address] [address] (BEAKER) (test code = [address], 1538) [place] [address]: Associate Professor Of Literacy/Techni artemio ID = [id number] for Abhijit Pageamandovanessa COMPREHENSIVE METABOLIC [id number] 06:11:00 Test Item Value Reference Range Interpretation [...] 347) EGFR (BEAKER) (test 15 mL/min/1.73 ESTIMA MERNA GFR IS code = 1092) sq m NOT ACCURATE CREATININE CLEARANCE IN PREDICTING GLOMERULAR FILTRATION RATE . ESTIMATED GFR I S NOT APPLICABLE FOR DIALYSIS PATIEN TS. Associate Professor Of Literacy ID - ADMINC-Reactive [id number] 06:06:00 Test Item Value Reference Range Interpretation Comments CRP (test code = 676) 1.63 mg/dL 0-0.5 H ZIA (test code = ZIA) Associate Professor Of Literacy ID - ADMIN Lab Interpretation (test Abnormal code = 41236-3) [facility] CenterC-REACTIVE [id number] 06:06:00 Test Item Value Reference Range Interpretation Comments C-REACTIVE PROTEIN (BEAKER) (test 1.63 mg/dL 0.00-0.50 H code = 676) Associate Professor Of Literacy ID - ADMINPOCT-GLUCOSE [id number] 06:04:00 Test Item Value Reference Range Interpretation Comments POC-GLUCOSE METER 56 mg/dL 70-110 L : Notified RN/MD: TESTED (BEAKER) (test code = AT [address]LS [address]) [facility] [address]: Associate Professor Of Literacy/Techni artemio ID = [id number] for Nelda Abdi CBC W/PLT COUNT & AUTO [id number] 05:53:00 Test Item Value Reference Range Interpretation [...] (BEAKER) (test code = 2801) U/S, ABDOMINAL, [id number] 22:02:00Reason for exam:->thrombocytopenia / eval for hepatosplenomegalyFINAL [...] MDReport Verified Date/Time: 12/20/2019 22:02:21 US abdomen [id number] 22:02:00Interface, External Ris In - 12/20/2019 10:04 [...] Marin MDReport Verified Date/Time: 12/20/2019 22:02:21 [facility] [id number] 20:36:00 Test Item Value Reference Range Interpretation Comments POC-GLUCOSE METER 74 mg/dL 70-110 : Notified RN/MD: TESTED (BEAKER) (test code = AT SLS L [address]) [facility] [address]: Associate Professor Of Literacy/Techni artemio ID = [id number] for Nelda Abdi POCT-GLUCOSE [id number] 17:50:00 Test Item Value Reference Range Interpretation Comments POC-GLUCOSE METER 72 mg/dL 70-110 : TESTED A T SLSL 1317 ([facility]) (test code = [address] [facility], 1538) FORMERLY NAMED [facility] [address]: Associate Professor Of Literacy/Techni artemio ID = [id number] for Berta Servin CT, BRAIN, WITHOUT [id number] 16:08:00Unlisted Reason for Exam - Click Yes [...] Date/Time: 12/20/2019 16:08:40 CT brain without IV [id number] 16:08:00Interface, External Ris In - 12/20/2019 4:10 [...] Berta Muniz MDReport Verified Date/Time: 12/20/2019 16:08:40 [facility], 2 VIEWS, [id number] 15:15:00Reason for exam:->Rule out osteomyelitisShould this be [...] MDReport Verified Date/Time: 12/20/2019 15:15:25 Reading Location: [facility] Radiology Reading Room , FOOT, 2 VIEWS, [id number] 15:15:00Reason for exam:->Rule out osteomyelitisShould this be [...] MDReport Verified Date/Time: 12/20/2019 15:15:25 Reading Location: [facility] Radiology Reading Room XR foot 2 views [id number] 15:15:00Interface, External Ris In - 12/20/2019 3:17 [...] Monahan Verified Date/Time: 12/20/2019 15:15:25 Reading Location: [facility] Radiology Reading Room [facility]XR foot 2 views [id number] 15:15:00Interface, External Ris In - 12/20/2019 3:17 [...] forefoot. Vascular calcifications. Signed: Luis Alberto Monahan MDRtu Verified Date/Time: 12/20/2019 15:15:25 Reading Location: [facility] Radiology Reading Room [facility] CenterAMMONIA2020-09-21 14:56:00 Test Item Value Reference Range Interpretation Comments AMMONIA (BEAKER) (test code = 348) 33 mol/L 17-80 Associate Professor Of Literacy ID - ADMINBlood gas, [id number] 14:41:00 Test Item Value Reference Range Interpretation Comments pH, Arterial (test code 7.33 7.35-7.45 L = 2744-1) pCO2, Arterial (test 58 See_Comment H [Autom ated message] code = 2019-8) The system [facility] generated this result transmit merna reference range : 35 - 45 mmHg. The reference range was not used to interpret this result as normal/abnormal . pO2, Arterial (test 109 See_Comment H [Automa merna message] code = 2703-7) The system [facility] generated this result transmit merna reference range : 80 - 90 mmHg. The reference range was not used to interpret this result as normal/abnormal . O2 Sat, Arterial (test 97.5 % 96-97 H code = 2708-6) HCO3, Arterial (test 30 mmol/L 21-29 H code = 1960-4) Base Excess, Arterial 2.6 mmol/L -2-3 (test code = 1925-7) Patient Temperature 37.0 C (test code = 8310-5) FIO2 (test code = 1819) 32 % Lab Interpretation Abnormal (test code = 28977-6) [facility] CenterBLO[facility]AS, [id number] 14:41:00 Test Item Value Reference Range Interpretation [...] code = 1819) 32.0 % Occult blood, [id number] 11:56:00 Test Item Value Reference Range Interpretation Comments Occult blood (test code = 2335-8) Negative Negative Lab Interpretation (test code = Normal 88665-1) [facility] CenterOCCULT BLOOD, [id number] 11:56:00 Test Item Value Reference Range Interpretation Comments FECAL OCCULT BLOOD (BEAKER) (test Negative Negative code = 618) POCT-GLUCOSE [id number] 11:39:00 Test Item Value Reference Range Interpretation Comments POC-GLUCOSE METER 88 mg/dL 70-110 : TESTED A T SLSL [address] (BEAKER) (test code = [address]) [facility] [place] [address]: Associate Professor Of Literacy/Techni artemio ID = [id number] for Gifty Phelps [id number] 11:22:00 Test Item Value Reference Range Interpretation Comments Haptoglobin (test code = <8 14-258 L 4542-7) ZIA (test code = ZIA) Associate Professor Of Literacy ID - LEONIE F Lab Interpretation (test Abnormal code = 06962-8) [facility] CenterHAPTOGLOBIN2020-09-21 11:22:00 Test Item Value Reference Range Interpretation Comments HAPTOGLOBIN (BEAKER) (test code = < mg/dL 14-258 L 366) Associate Professor Of Literacy ID - LEONIE FT4, [id number] 11:01:00 Test Item Value Reference Range Interpretation Comments Free T4 (test code = 0.52 ng/dL 0.9-1.8 L 3024-7) ZIA (test code = ZIA) Associate Professor Of Literacy ID - ADMIN Lab Interpretation (test Abnormal code = 28482-8) [facility] CenterT4, [id number] 11:01:00 Test Item Value Reference Range Interpretation Comments FREE T4 (BEAKER) (test code = 655) 0.52 ng/dL 0.90-1.80 L Associate Professor Of Literacy ID - ADMINPeripheral Blood Smear - Path [id number] 08:19:00 Test Item Value Reference Range Interpretation [...] Griffith M.D. code = 2849) (electronic signature) [facility] CenterPERIPHERAL BLOOD SMEAR - PATHOLOGIST REVIEW 2019-12-20 08:19:00 Test Item Value Reference Range Interpretation Comments RBC MORPHOLOGY Target Cells (BEAKER) (test code = 2846) RBC MORPHOLOGY Basophilic Stippling (BEAKER) (test code = 46015) RBC MORPHOLOGY Nucleated Red Blood Cells (BEAKER) (test code = 88533) PERIPHERAL SMR Normochromic normocytic REVIEW (BEAKER) anemia with a few target (test code = 2640) cells, nucleated RBCs and basophilic stippling. No increase in schistocytes. WBCs normal in number and morphology. Thrombocytopenia with normal platelet morphology. [id number] Jovita Griffith M.D. 2 (BEAKER) (test (electronic signature) code = 2849) Vitamin B12 and [id number] 06:37:00 Test Item Value Reference Range Interpretation Comments Vitamin B12 (test 1431 pg/mL 211-911 H code = 2132-9) Folate (test code = 17.00 ng/mL See_Comment [Automa merna 2284-8) message] The system which generated this result transmit merna reference range : >=5.4. The reference range was not used to interpret this result as normal/abnormal . ZIA (test code = ZIA) Associate Professor Of Literacy ID - ADMIN Lab Interpretation Abnormal (test code = 07661-1) [facility] CenterVITAMIN B12 AND [id number] 06:37:00 Test Item Value Reference Range Interpretation Comments VITAMIN B12 (BEAKER) (test code = 1431 pg/mL 211-911 H 774) FOLATE (BEAKER) (test code = 362) 17.00 ng/mL >=5.4 Associate Professor Of Literacy ID - ADMINPOCT-GLUCOSE [id number] 06:32:00 Test Item Value Reference Range Interpretation Comments POC-GLUCOSE METER 79 mg/dL 70-110 : TESTED A T SLSL 1317 (BEAKER) (test code = [address]) [facility] NAMED [facility] [address]: Associate Professor Of Literacy/Techni artemio ID = [id number] for Anahi Sherman TSH/Free T4 If [id number] 06:25:00 Test Item Value Reference Range Interpretation Comments TSH (test code = 21.210 See_Comment H [Automated 67268-6) message] The system which generated this result transmit merna reference range : 0.350 - 5.500 uIU/mL. The reference range was not used to interpret this result as normal/abnormal . ZIA (test code = ZIA) Associate Professor Of Literacy ID - ADMIN Lab Interpretation Abnormal (test code = 27356-6) [facility] CenterFerritin2020-09-21 06:25:00 Test Item Value Reference Range Interpretation Comments Ferritin (test code = 595.00 ng/mL 10-291 H 2276-4) ZIA (test code = ZIA) Associate Professor Of Literacy ID - ADMIN Lab Interpretation (test Abnormal code = 55299-8) [facility] CenterFERRITIN2020-09-21 06:25:00 Test Item Value Reference Range Interpretation Comments FERRITIN (BEAKER) (test code = 595.00 ng/mL 10.00-291.00 H 361) Associate Professor Of Literacy ID - ADMINTSH/FREE T4 IF [id number] 06:25:00 Test Item Value Reference Range Interpretation Comments THYROID STIMULATING HORMONE 21.210 uIU/mL 0.350-5.500 H (BEAKER) (test code = 772) Associate Professor Of Literacy ID - ADMINPT/[id number] 06:06:00 Test Item Value Reference Interpretation Comments Range Protime (test code = 13.5 See_Comment H [Autom ated 5902-2) message] The system which generated this result transmitted reference range : 9.3 - 12.0 sec. The reference range was not used to interpret this result as normal/abnormal . INR (test code = 1.25 See_Comment [Automated 0331-6) message] The system which generated this result transmitted reference range : <=5.90. The reference range was not used to interpret this result as normal/abnormal . PTT (test code = 38.2 See_Comment H [Automated 61309-9) message] The system which generated this result transmitted reference range : 23.0 - 35.0 sec . The reference range was not used to interpret this result as normal/abnormal . ZIA (test code = RECOMMENDED ZIA) COUMADIN/WARFARIN INR THERAPY RANGESSTANDARD DOSE: 2.0 - 3.0 Includes: PROPHYLAXIS for venous thrombosis, systemic embolization; TREATMENT for venous thrombosis and/or pulmonary embolus.HIGH RISK: Target INR is 2.5-3.5 for patients with mechanical heart valves.Final Information (Auto Output)Final Information (Auto Output)Final Information (Auto Output) Lab Interpretation Abnormal (test code = 00775-4) [facility]2020-09-21 06:06:00 Test Item Value Reference Range Interpretation Comments Fibrinogen (test code = 340 mg/dL 598-478 6428-7) ZIA (test code = ZIA) Final Information (Auto Output) Lab Interpretation (test Normal code = 09727-6) [facility]:06[facility]00 Test Item Value Reference Range Interpretation Comments FIBRINOGEN LEVEL (BEAKER) (test 340 mg/dL 200-400 code = 658) Final Information (Auto Output)PT/[id number] 06:06:00 Test Item Value Reference Range Interpretation [...] = 2502-3) ZIA (test code = ZIA) Associate Professor Of Literacy ID - ADMIN Lab Interpretation (test Abnormal code = 21128-6) [facility] CenterIRON, TIBC, % SAT. (WITHOUT FERRITIN)2019-12-20 05:59:00 Test Item Value Reference Range Interpretation Comments IRON (BEAKER) (test code = 547) 92.0 ug/dL 45.0-170.0 TOTAL IRON BINDING CAPACITY 151 ug/dL 250-550 L (BEAKER) (test code = 769) IRON % SATURATION (2) (BEAKER) 61 % 20-55 H (test code = 2590) Associate Professor Of Literacy ID - ADMINCOMPREHENSIVE METABOLIC [id number] 05:55:00 Test Item Value Reference Range Interpretation [...] 347) EGFR (BEAKER) (test 13 mL/min/1.73 ESTIMA MERNA GFR IS code = 1092) sq m NOT ACCURATE CREATININE CLEARANCE IN PREDICTING GLOMERULAR FILTRATION RATE . ESTIMATED GFR I S NOT APPLICABLE FOR DIALYSIS PATIEN TS. Associate Professor Of Literacy ID - RJOSHD-[id number] 05:46:00 Test Item Value Reference Range Interpretation Comments D-Dimer, Quant (test 1.09 mg/L <0.50 H code = 81051-6) ZIA (test code = ZIA) REGARDING D-DIMER RESULTS: The 98% NPV (Negative Predictive Value) for DVT/PE exclusion is 0.50 mg/L FEU as suggested by the fire protection inspector and as approved by the FDA.Final Information (Auto Output) Lab Interpretation (test Abnormal code = 12502-1) [facility] CenterD-[id number] 05:46:00 Test Item Value Reference Range Interpretation Comments D-DIMER QUANTITATIVE (BEAKER) (test 1.09 mg/L <0.50 H code = 671) REGARDING D-DIMER RESULTS: The 98% NPV (Negative Predictive Value) for DVT/PE exclusion is 0.50 mg/LFEU as suggested by the fire protection inspector and as approved by the FDA.Final Information (Auto Output)Reticulocyte [id number] 05:42:00 Test Item Value Reference Range Interpretation Comments % Retic (test code = 77459-7) 5.9 % 0.4-2.9 H Lab Interpretation (test code = Abnormal 77764-0) [facility] CenterRETICULOCYTE [id number] 05:42:00 Test Item Value Reference Range Interpretation Comments RETICULOCYTE COUNT PCT (BEAKER) (test 5.9 % 0.4-2.9 H code = 575) CBC W/PLT COUNT & AUTO [id number] 05:33:00 Test Item Value Reference Range Interpretation [...] U/L 107-206 ZIA (test code = ZIA) Associate Professor Of Literacy ID - ADMIN Lab Interpretation (test Normal code = 25326-4) [facility] CenterLACTATE DEHYDROGENASE (LDH)2019-12-19 21:19:00 Test Item Value Reference Range Interpretation Comments LACTATE DEHYDROGENASE (BEAKER) (test 178 U/L 107-206 code = 635) Associate Professor Of Literacy ID - ADMINPOCT-GLUCOSE [id number] 20:47:00 Test Item Value Reference Range Interpretation Comments POC-GLUCOSE METER 102 mg/dL 70-110 : TESTED A T SLSL 1317 (BEAKER) (test code [facility] [address], = 1538) [facility] NAMED [facility] [address]: Associate Professor Of Literacy/Techni artemio ID = [id number] for Anahi Sherman POCT-GLUCOSE [id number] 16:18:00 Test Item Value Reference Range Interpretation Comments POC-GLUCOSE METER 96 mg/dL 70-110 : TESTED A T SLSL 1317 (BEAKER) (test code = [address]) [place] [address]: Associate Professor Of Literacy/Techni artemio ID = [id number] for Nalini Jean Baptiste Basic Metabolic [id number] 06:26:00 Test Item Value Reference Range Interpretation Comments Sodium (test code = 138 meq/L 913-486 5937-2) Potassium (test code = 3.9 meq/L 3.6-5.5 2823-3) Chloride (test code = 99 meq/L 98-106 2075-0) CO2 (test code = 30 meq/L 20-29 H 2028-9) BUN (test code = 47 mg/dL 10-26 H 3094-0) Creatinine (test code 3.04 mg/dL 0.5-1.2 H = 2160-0) Glucose (test code = 82 mg/dL 70-110 2345-7) Calcium (test code = 7.9 mg/dL 8.5-10.5 L 83511-0) EGFR (test code = 15 mL/min/1.73 [place] [address]-7) NOT ACCURATE CREATININE CLEARANCE IN PREDICTING GLOMERULAR FILTRATION RATE . ESTIMATED GFR I S NOT APPLICABLE FOR DIALYSIS PATIENTS. ZIA (test code = ZIA) Associate Professor Of Literacy ID - ADMIN Lab Interpretation Abnormal (test code = 32597-1) [facility]BA[facility] METABOLIC [id number] 06:26:00 Test Item Value Reference Range Interpretation [...] 697) EGFR (BEAKER) (test 15 mL/min/1.73 ESTIMA MERNA GFR IS code = 1092) sq m NOT ACCURATE CREATININE CLEARANCE IN PREDICTING GLOMERULAR FILTRATION RATE . ESTIMATED GFR I S NOT APPLICABLE FOR DIALYSIS PATIEN TS. Associate Professor Of Literacy ID - ADMINCBC W/PLT COUNT & AUTO [id number] 06:04:00 Test Item Value Reference Range Interpretation [...] PERCENT (BEAKER) (test code = 2801) POCT-GLUCOSE [id number] 05:35:00 Test Item Value Reference Range Interpretation Comments POC-GLUCOSE METER 85 mg/dL 70-110 : Notified RN/MD: TESTED ([facility]) (test code = AT [facility] L [address]) [place] [address]: Associate Professor Of Literacy/Techni artemio ID = [id number] for Carlosen , Zonia POCT-GLUCOSE [id number] 21:46:00 Test Item Value Reference Range Interpretation Comments POC-GLUCOSE METER 125 mg/dL 70-110 H : Notified RN/MD: TESTED ([facility] [address] [facility] [address] [place] [address]: Associate Professor Of Literacy/Techni artemio ID = [id number] for Niraj , Zonia POCT-GLUCOSE [id number] 16:17:00 Test Item Value Reference Range Interpretation Comments POC-GLUCOSE METER 103 mg/dL 70-110 : [facility] (test code [address] [facility], = 1538) [place] [address]: Associate Professor Of Literacy/Techni artemio ID = [id number] for Nalini Jean Baptiste POCT-GLUCOSE [id number] 07:56:00 Test Item Value Reference Range Interpretation Comments POC-GLUCOSE METER 111 mg/dL 70-110 H : [facility], = 1538) [place] [address]: Associate Professor Of Literacy/Techni artemio ID = [id number] for Nalini Jean Baptiste POCT-GLUCOSE [id number] 06:25:00 Test Item Value Reference Range Interpretation Comments POC-GLUCOSE METER 57 mg/dL 70-110 L : TESTED A T [address]SL 13[address] (BEAKER) (test code = [address]) [place] [address]: Associate Professor Of Literacy/Techni artemio ID = [id number] for Ashley austin, Anne POCT-GLUCOSE [id number] 21:55:00 Test Item Value Reference Range Interpretation Comments POC-GLUCOSE METER 76 mg/dL 70-110 : TESTED A T [address] (BEAKER) (test code = [address]) [place] [address]: Associate Professor Of Literacy/Techni artemio ID = [id number] for Ashley n, Anne POCT-GLUCOSE [id number] 18:03:00 Test Item Value Reference Range Interpretation Comments POC-GLUCOSE METER 81 mg/dL 70-110 : TESTED A T [address] (BEAKER) (test code = [address], [address]) [place] [address]: Associate Professor Of Literacy/Techni artemio ID = [id number] for Ericka Daniel POCT-GLUCOSE [id number] 12:33:00 Test Item Value Reference Range Interpretation Comments POC-GLUCOSE METER 73 mg/dL 70-110 : TESTED A T [address]17 (BEAKER) (test code = [address], [address]) [place] [address]: Associate Professor Of Literacy/Techni artemio ID = [id number] for Marisela Bolton Hepatitis B surface [id number] 10:49:00 Test Item Value Reference Range Interpretation Comments Hep B S Ab (test code <8.0 See_Comment [Auto mated = 07497-6) message] The system which generated this result transmit merna reference range : <8.0 mIU/mL. e reference range was not used to interpret this result as normal/abnormal . ZIA (test code = ZIA) Associate Professor Of Literacy ID - LOENIE F Lab Interpretation Normal (test code = 16021-1) [facility] CenterHEPATITIS B SURFACE [id number] 10:49:00 Test Item Value Reference Range Interpretation Comments HEPATITIS B SURFACE ANTIBODY < mIU/mL <8.0 (BEAKER) (test code = 647) Associate Professor Of Literacy ID - LEONIE FHepatitis B core antibody, [id number] 10:43:00 Test Item Value Reference Range Interpretation Comments Hep B Core Total Ab Nonreactive Nonreactive (test code = 98728-8) ZIA (test code = ZIA) Associate Professor Of Literacy ID Bijal Jay Lab Interpretation (test Normal code = 32097-1) [facility] CenterHes[facility] [id number] 10:43:00 Test Item Value Reference Range Interpretation Comments Hepatitis C Ab (test Nonreactive Nonreactive code = 58199-9) ZIA (test code = ZIA) Associate Professor Of Literacy ID Bijal Jay Lab Interpretation (test Normal code = 53291-1) [facility] C [id number] 10:43:00 Test Item Value Reference Range Interpretation Comments HEPATITIS C ANTIBODY (BEAKER) Nonreactive Nonreactive (test code = 367) Associate Professor Of Literacy ID Bijal HADLEY FHEPATITIS B CORE ANTIBODY, [id number] 10:43:00 Test Item Value Reference Range Interpretation Comments HEPATITIS B CORE TOTAL ANTIBODY Nonreactive Nonreactive (BEAKER) (test code = 497) Associate Professor Of Literacy ID Bijal HADLEY FPOCT-GLUCOSE [id number] 06:31:00 Test Item Value Reference Range Interpretation Comments POC-GLUCOSE METER 67 mg/dL 70-110 L : TESTED A T [address]SL [address]17 (BEAKER) (test code = [address], 1538) [facility] NAMED [facility] [address]: Associate Professor Of Literacy/Techni artemio ID = [id number] for Anne Busby COMPREHENSIVE METABOLIC [id number] 05:10:00 Test Item Value Reference Range Interpretation [...] 347) EGFR (BEAKER) (test 14 mL/min/1.73 ESTIMA MERNA GFR IS code = 1092) sq m NOT ACCURATE CREATININE CLEARANCE IN PREDICTING GLOMERULAR FILTRATION RATE . ESTIMATED GFR I S NOT APPLICABLE FOR DIALYSIS PATIEN TS. Associate Professor Of Literacy ID - ADMINCBC W/PLT COUNT & AUTO [id number] 04:36:00 Test Item Value Reference Range Interpretation [...] PERCENT (BEAKER) (test code = 2801) POCT-GLUCOSE [id number] 21:14:00 Test Item Value Reference Range Interpretation Comments POC-GLUCOSE METER 79 mg/dL 70-110 : TESTED A T [address]SL [address]17 (BEAKER) (test code = [address] [facility], 1538) [facility] NAMED [facility] [address]: Associate Professor Of Literacy/Techni artemio ID = [id number] for Anne Busby POCT-GLUCOSE [id number] 18:35:00 Test Item Value Reference Range Interpretation Comments POC-GLUCOSE METER 68 mg/dL 70-110 L : Notified RN/MD: TESTED (BEAKER) (test code = AT SLS L [address]) [facility] [address]: Associate Professor Of Literacy/Techni artemio ID = [id number] for Alondra Kelley SARS-COV2/RT-PCR ([facility])2019-12-16 17:53:00 Test Item Value Reference Range Interpretation Comments SARS-COV2/RT-PCR (test Negative Not Detected, Negative, code = 1956232) See external report for linked test SARS-COV-2 PERFORMING LAB [facility] JANET (test code = 1941900) Negative result for this test determines that [...] 564(g) of the Act.Fact Sheet for Healthcare Providers:https://www.Invocaidel.com/sites/default/files/product/documents/Fact_Shee v_KF_Drkzfbjir_Fbqd_PMZF-UxL-8.pdfFact Sheet for Healthcare Patients:https://www.[employer]oca[employer].com/sites/default/files/product/ documents/Lats_Sdygp_Xijshfmw_Btmw_EGBL-IxC-4.pdfPerforming Laboratory:[facility], [place] [address]Jykiittwn B surface [id number] 16:57:00 Test Item Value Reference Range Interpretation Comments HBsAg Screen (test code = Nonreactive Nonreactive 5195-3) ZIA (test code = ZIA) Associate Professor Of Literacy ID - ADMIN Lab Interpretation (test Normal code = 10329-6) [facility] CenterHEPATITIS B SURFACE [id number] 16:57:00 Test Item Value Reference Range Interpretation Comments HEPATITIS B SURFACE ANTIGEN (2) Nonreactive Nonreactive (BEAKER) (test code = 2585) Associate Professor Of Literacy ID - ADMINANG, TUNNELED CATHETER [id number] 15:06:00Reason for Central Line/PICC?->Need for hemodialysis accessReason [...] the patient's medical record by the nurse. String Cutter: Soto Arias M.D. Professor Of Theology: none. Approach: Right internal jugular vein Estimated [...] needle into the right atrium. A 4 Samoan micropuncture sheath was placed and a 0.035 wire was advanced into the IVC. A subcutaneous tunnel was created in the left anterior chest wall by blunt dissection. A 23 cm tip to cuff 15.5 Samoan Duraflow 2 catheter was brought through the [...] Arias MDReport Verified Date/Time: 12/16/2019 15:06:45Reading Location: [facility] Radiology Reading Room IR Tunneled Catheter [id number] 15:06:00 Interface, External Ris In - 12/16/2019 [...] the patient's medical record by the nurse. String Cutter: Soto Arias M.D. Ass istant: none. Approach: [...] A 23 cm tip to cuff 15.5 Samoan Duraflow 2 catheter was brought through the [...] MDReport Verified Date/Time: 12/16/2019 15:06:45 Reading Location: [facility] Radiology Reading Room [facility] CenterCT[facility] [id number] 14:59:00 Test Item Value Reference Range Interpretation Comments POC-GLUCOSE METER 70 mg/dL 70-110 : Notified RN/MD: TESTED (BEAKER) (test code = AT SLS L [address]) JAYNALedy FORMERLY NAMED [facility] [address]: Associate Professor Of Literacy/Techni artemio ID = [id number] for Alondra Kelley POCT-GLUCOSE [id number] 11:13:00 Test Item Value Reference Range Interpretation Comments POC-GLUCOSE METER 72 mg/dL 70-110 : Notified RN/MD: TESTED ([facility]) ([place] = [place] [facility] [facility] [address]) [place] [address]: Associate Professor Of Literacy/Techni artemio ID = [id number] for Alondra Kelley RAD, CHEST, 1 VIEW, NON [id number] 09:20:00Reason for exam:->fallShould this be performed at [...] MDReport Verified Date/Time: 12/16/2019 09:20:06 Reading Location: [facility] Radiology Reading Room XR chest 1 view portable / [id number] 09:20:00Interface, External Ris In - 12/16/2019 9:22 [...] MDReport Verified Date/Time: 12/16/2019 09:20:06 Reading Location: [facility] Radiology Reading Room Electronically yeimi d by: SOTO ARIAS MD on 12/16/2019 09:20 [facility] POCT-GLUCOSE [id number] 06:03:00 Test Item Value Reference Range Interpretation Comments POC-GLUCOSE METER 74 mg/dL 70-110 : Notified RN/MD: TESTED (BEAKER) (test code = AT [facility] [address]) [facility] [address]: Associate Professor Of Literacy/Techni artemio ID = [id number] for Zonia Healy BASIC METABOLIC [id number] 05:08:00 Test Item Value Reference Range Interpretation [...] 697) EGFR (BEAKER) (test 12 mL/min/1.73 ESTIMA MERNA GFR IS code = 1092) sq m NOT ACCURATE CREATININE CLEARANCE IN PREDICTING GLOMERULAR FILTRATION RATE . ESTIMATED GFR I S NOT APPLICABLE FOR DIALYSIS PATIEN TS. Associate Professor Of Literacy ID - ADMINProthrombin time/[id number] 05:01:00 Test Item Value Reference Interpretation Comments Range Protime (test code = 14.1 See_Comment H [Autom ated 5902-2) message] The system which generated this result transmitted reference range : 9.3 - 12.0 sec. The reference range was not used to interpret this result as normal/abnormal . INR (test code = 1.31 See_Comment [Automated 6301-6) message] The system which generated this result transmitted reference range : <=5.90. The reference range was not used to interpret this result as normal/abnormal . ZIA (test code = RECOMMENDED ZIA) COUMADIN/WARFARIN INR THERAPY RANGESSTANDARD DOSE: 2.0 - 3.0 Includes: PROPHYLAXIS for venous thrombosis, systemic embolization; TREATMENT for venous thrombosis and/or pulmonary embolus.HIGH RISK: Target INR is 2.5-3.5 for patients with mechanical heart valves.Final Information (Auto Output)Final Information (Auto Output) Lab Interpretation Abnormal (test code = 11158-6) [facility][id number] 05:01:00 Test Item Value Reference Range Interpretation [...] Information (Auto Output)CBC W/PLT COUNT & AUTO [id number] 04:46:00 Test Item Value Reference Range Interpretation [...] PERCENT (BEAKER) (test code = 2801) POCT-GLUCOSE [id number] 17:13:00 Test Item Value Reference Range Interpretation Comments POC-GLUCOSE METER 220 mg/dL 70-110 H TESTED AT [facility] 6720 (BEAKER) (test code = JULIANO RYEEZ 1538) [address] BASIC METABOLIC [id number] 15:47:00 Test Item Value Reference Range Interpretation [...] 697) EGFR (BEAKER) (test 25 mL/min/1.73 ESTIMA MERNA GFR IS code = 1092) sq m NOT ACCURATE CREATININE CLEARANCE IN PREDICTING GLOMERULAR FILTRATION RATE . ESTIMATED GFR I S NOT APPLICABLE FOR DIALYSIS PATIEN TS. POCT-GLUCOSE [id number] 11:30:00 Test Item Value Reference Range Interpretation Comments POC-GLUCOSE METER 268 mg/dL 70-110 H TESTED AT [place] [address] ([facility]) (test code = [facility] 1538) [address] POCT-GLUCOSE [id number] 07:08:00 Test Item Value Reference Range Interpretation Comments POC-GLUCOSE METER 208 mg/dL 70-110 H TESTED AT [place] [address] ([facility]) (test code = [facility] 1538) [address] CALCIUM, [id number] 06:47:00 Test Item Value Reference Range Interpretation Comments CALCIUM IONIZED (BEAKER) (test 1.11 mmol/L 1.12-1.27 L code = 698) PH, BLOOD (BEAKER) (test code = 7.40 1810) BASIC METABOLIC [id number] 06:40:00 Test Item Value Reference Range Interpretation [...] 697) EGFR (BEAKER) (test 25 mL/min/1.73 ESTIMA MERNA GFR IS code = 1092) sq m NOT ACCURATE CREATININE CLEARANCE IN PREDICTING GLOMERULAR FILTRATION RATE . ESTIMATED GFR I S NOT APPLICABLE FOR DIALYSIS PATIEN TS. [id number] 06:33:00 Test Item Value Reference Range Interpretation Comments PHOSPHORUS (BEAKER) (test code = 5.1 mg/dL 2.3-4.7 H 604) [id number] 06:33:00 Test Item Value Reference Range Interpretation Comments MAGNESIUM (BEAKER) (test code = 2.0 mg/dL 1.6-2.6 627) LACTIC ACID, VENOUS, WHOLE [id number] 06:02:00 Test Item Value Reference Range Interpretation Comments LACTATE BLOOD VENOUS (2) (BEAKER) 0.8 mmol/L 0.5-2.2 (test code = 2872) Effective 08/02/2015: Units/Reference Range ChangeNew: 0.5-2.2 mmol/L Previous: 5-20 mg/dLCBC W/PLT COUNT & AUTO [id number] 05:54:00 Test Item Value Reference Range Interpretation [...] PERCENT (BEAKER) (test code = 2801) POCT-GLUCOSE [id number] 21:30:00 Test Item Value Reference Range Interpretation Comments POC-GLUCOSE METER 248 mg/dL 70-110 H TESTED AT [facility] 6720 (BEAKER) (test code = JULIANO Osborne [facility] 1538) [address] RAD, [id number] 21:22:00Reason for exam:->fall, tailbone painFINAL REPORT RAD, [...] MDReport Verified Date/Time: 09/04/2017 21:22:03 Reading Location: [facility] C013T Transitional Reading Room POCT-GLUCOSE [id number] 17:37:00 Test Item Value Reference Range Interpretation Comments POC-GLUCOSE METER 222 mg/dL 70-110 H TESTED AT [place] [address] ([facility]) (test code = [facility] Dylon [facility] 1538) [address] POCT-GLUCOSE [id number] 13:55:00 Test Item Value Reference Range Interpretation Comments POC-GLUCOSE METER 194 mg/dL 70-110 H TESTED AT [place] [address] ([facility]) (test code = [facility] Dylon [facility] 1538) [address] POCT-GLUCOSE [id number] 12:34:00 Test Item Value Reference Range Interpretation Comments POC-GLUCOSE METER 229 mg/dL 70-110 H TESTED AT [place] [address] ([facility]) (test code = [facility] Dylon [facility] 1538) [address] POCT-GLUCOSE [id number] 08:00:00 Test Item Value Reference Range Interpretation Comments POC-GLUCOSE METER 159 mg/dL 70-110 H TESTED AT [place] [address] ([facility]) (test code = [facility] 1538) [address] CALCIUM, [id number] 06:00:00 Test Item Value Reference Range Interpretation Comments CALCIUM IONIZED ([facility]) (test 1.05 mmol/L 1.12-1.27 L code = 698) PH, BLOOD ([facility]) (test code = 7.45 1810) [id number] 05:59:00 Test Item Value Reference Range Interpretation Comments PHOSPHORUS ([facility]) (test code = 4.8 mg/dL 2.3-4.7 H 604) [id number] 05:59:00 Test Item Value Reference Range Interpretation Comments MAGNESIUM (BEAKER) (test code = 2.0 mg/dL 1.6-2.6 627) BASIC METABOLIC [id number] 05:59:00 Test Item Value Reference Range Interpretation [...] 697) EGFR (BEAKER) (test 31 mL/min/1.73 ESTIMA MERNA GFR IS code = 1092) sq m NOT ACCURATE CREATININE CLEARANCE IN PREDICTING GLOMERULAR FILTRATION RATE . ESTIMATED GFR I S NOT APPLICABLE FOR DIALYSIS PATIEN TS. CREATINE KINASE (CK)2017-09-04 05:59:00 Test Item Value Reference Range Interpretation Comments CREATINE KINASE TOTAL (BEAKER) (test 45 U/L 29-200 code = 380) CBC W/PLT COUNT & AUTO [id number] 05:32:00 Test Item Value Reference Range Interpretation [...] PERCENT (BEAKER) (test code = 2801) POCT-GLUCOSE [id number] 20:36:00 Test Item Value Reference Range Interpretation Comments POC-GLUCOSE METER 211 mg/dL 70-110 H TESTED AT [facility] 67[address] [facility] (test code = JULINAO REYEZ 1538) [address] CREATININE, RANDOM [id number] 19:55:00 Test Item Value Reference Range Interpretation Comments CREATININE URINE (BEAKER) (test 16.1 mg/dL code = 375) Reference Range: No NormalsPROTEIN, RANDOM [id number] 19:55:00 Test Item Value Reference Range Interpretation Comments PROTEIN, URINE (BEAKER) (test code 102 mg/dL 0-14 H = 1569) POCT-GLUCOSE [id number] 18:04:00 Test Item Value Reference Range Interpretation Comments POC-GLUCOSE METER 177 mg/dL 70-110 H TESTED AT [place] [address] (BEAKER) (test code = [facility] 1538) [address] POCT-GLUCOSE [id number] 11:59:00 Test Item Value Reference Range Interpretation Comments POC-GLUCOSE METER 244 mg/dL 70-110 H TESTED AT [place] [address] (BEAKER) (test code = [facility] 1538) [address] POCT-GLUCOSE [id number] 07:53:00 Test Item Value Reference Range Interpretation Comments POC-GLUCOSE METER 160 mg/dL 70-110 H TESTED AT [place] [address] (BEAKER) (test code = [facility] 1538) [address] BASIC METABOLIC [id number] 05:29:00 Test Item Value Reference Range Interpretation [...] 697) EGFR (BEAKER) (test 29 mL/min/1.73 ESTIMA MERNA GFR IS code = 1092) sq m NOT ACCURATE CREATININE CLEARANCE IN PREDICTING GLOMERULAR FILTRATION RATE . ESTIMATED GFR I S NOT APPLICABLE FOR DIALYSIS PATIEN TS. [id number] 05:21:00 Test Item Value Reference Range Interpretation Comments MAGNESIUM (BEAKER) (test code = 2.1 mg/dL 1.6-2.6 627) HEPATIC FUNCTION [id number] 05:21:00 Test Item Value Reference Range Interpretation [...] code = 23 U/L 6-55 347) TROPONIN [id number] 05:18:00 Test Item Value Reference Range Interpretation [...] PERCENT (BEAKER) (test code = 2801) TROPONIN [id number] 23:40:00 Test Item Value Reference Range Interpretation [...] acidosis, acute neurological disease, and persistent tachyarrhythmia.POCT-GLUCOSE [id number] 22:51:00 Test Item Value Reference Range Interpretation Comments POC-GLUCOSE METER 214 mg/dL 70-110 H TESTED AT [facility] 6720 (BEAKER) (test code = [place] 1538) [address] RAD, CHEST, 1 VIEW, NON [id number] 21:42:00Reason for exam:->CHEST PAINShould this be performed at the bedside?->YesFINAL REPORT RAD, CHEST, 1 VIEW, NON DEPT INDICATION: CHEST PAIN COMPARISON: Chest x-ray 4 weeks ago TECHNIQUE: Single frontal view of the chest. IMPRESSION:Cardiomegaly.Mild pulmonary interstitial edema with a small right- sided effusion.No acute osseous abnormality. Signed: Dario Abraham MDReport Verified Date/Time: 09/02/2017 21:42:11 Reading Location: [address] Reading Room CREATININE, RANDOM [id number] 21:10:00 Test Item Value Reference Range Interpretation Comments CREATININE URINE (BEAKER) (test 35.5 mg/dL code = 375) Reference Range: No NormalsSODIUM, RANDOM [id number] 21:10:00 Test Item Value Reference Range Interpretation Comments SODIUM URINE (BEAKER) (test code = 80 meq/L 243) Reference Range: No NormalsURINALYSIS W/ [id number] 20:59:00 Test Item Value Reference Range Interpretation [...] code = 514) SOURCE(BEAKER) (test code = 3445) BASIC METABOLIC [id number] 16:49:00 Test Item Value Reference Range Interpretation [...] 697) EGFR (BEAKER) (test 25 mL/min/1.73 ESTIMA MERNA GFR IS code = 1092) sq m NOT ACCURATE CREATININE CLEARANCE IN PREDICTING GLOMERULAR FILTRATION RATE . ESTIMATED GFR I S NOT APPLICABLE FOR DIALYSIS PATIEN TS. [id number] 16:38:00 Test Item Value Reference Range Interpretation [...] (BEAKER) (test code = 700) BASIC METABOLIC [id number] 13:43:00 Test Item Value Reference Range Interpretation [...] 697) EGFR (BEAKER) (test 24 mL/min/1.73 ESTIMA MERNA GFR IS code = 1092) sq m NOT ACCURATE CREATININE CLEARANCE IN PREDICTING GLOMERULAR FILTRATION RATE . ESTIMATED GFR I S NOT APPLICABLE FOR DIALYSIS PATIEN TS. POCT-GLUCOSE [id number] 12:44:00 Test Item Value Reference Range Interpretation Comments POC-GLUCOSE METER 283 mg/dL 70-110 H TESTED AT [facility] 6720 (BEAKER) (test code = [place] 1538) [address] CALCIUM, [id number] 07:03:00 Test Item Value Reference Range Interpretation Comments CALCIUM IONIZED (BEAKER) (test 1.02 mmol/L 1.12-1.27 L code = 698) PH, BLOOD (BEAKER) (test code = 7.43 1810) [id number] 05:28:00 Test Item Value Reference Range Interpretation Comments PHOSPHORUS (BEAKER) (test code = 3.3 mg/dL 2.3-4.7 604) [id number] 05:28:00 Test Item Value Reference Range Interpretation Comments MAGNESIUM (BEAKER) (test code = 1.5 mg/dL 1.6-2.6 L 627) BASIC METABOLIC [id number] 05:28:00 Test Item Value Reference Range Interpretation [...] 697) EGFR (BEAKER) (test 39 mL/min/1.73 ESTIMA MERNA GFR IS code = 1092) sq m NOT ACCURATE CREATININE CLEARANCE IN PREDICTING GLOMERULAR FILTRATION RATE . ESTIMATED GFR I S NOT APPLICABLE FOR DIALYSIS PATIEN TS. CBC W/PLT COUNT & AUTO [id number] 05:06:00 Test Item Value Reference Range Interpretation [...] PERCENT (BEAKER) (test code = 2801) POCT-GLUCOSE [id number] 21:08:00 Test Item Value Reference Range Interpretation Comments POC-GLUCOSE METER 202 mg/dL 70-110 H TESTED AT [facility] 6720 ([facility] (test code = JULIANO REYE[place] 1538) [address] POCT-GLUCOSE [id number] 16:50:00 Test Item Value Reference Range Interpretation Comments POC-GLUCOSE METER 287 mg/dL 70-110 H TESTED AT [facility] 6720 (BEAKER) (test code = JULIANO Osborne [facility] 1538) [address] POCT-GLUCOSE [id number] 12:21:00 Test Item Value Reference Range Interpretation Comments POC-GLUCOSE METER 213 mg/dL 70-110 H TESTED AT [place] [address] (BEAKER) (test code = JULIANO Osborne [facility] 1538) [address] POCT-GLUCOSE [id number] 08:28:00 Test Item Value Reference Range Interpretation Comments POC-GLUCOSE METER 178 mg/dL 70-110 H TESTED AT [place] [address] (BEAKER) (test code = JULIANO Osborne [facility] 1538) [address] CALCIUM, [id number] 07:06:00 Test Item Value Reference Range Interpretation Comments CALCIUM IONIZED (BEAKER) (test 0.99 mmol/L 1.12-1.27 L code = 698) PH, BLOOD (BEAKER) (test code = 7.42 1810) [id number] 05:37:00 Test Item Value Reference Range Interpretation Comments PHOSPHORUS (BEAKER) (test code = 3.5 mg/dL 2.3-4.7 604) [id number] 05:37:00 Test Item Value Reference Range Interpretation Comments MAGNESIUM (BEAKER) (test code = 1.6 mg/dL 1.6-2.6 627) BASIC METABOLIC [id number] 05:37:00 Test Item Value Reference Range Interpretation [...] 697) EGFR (BEAKER) (test 37 mL/min/1.73 ESTIMA MERNA GFR IS code = 1092) sq m NOT ACCURATE CREATININE CLEARANCE IN PREDICTING GLOMERULAR FILTRATION RATE . ESTIMATED GFR I S NOT APPLICABLE FOR DIALYSIS PATIEN TS. CBC W/PLT COUNT & AUTO [id number] 05:07:00 Test Item Value Reference Range Interpretation [...] EOSINOPHILS ABSOLUTE COUNT 0.26 K/ L 0.04-0.36 ([facility]) (test code = 416) BASOPHILS ABSOLUTE COUNT ([facility]) 0.04 K/ L 0.01-0.08 (test code = 417) IMMATURE GRANULOCYTES-RELATIVE 1 % 0-1 PERCENT ([facility]) (test code = 2801) POCT-GLUCOSE [id number] 21:24:00 Test Item Value Reference Range Interpretation Comments POC-GLUCOSE METER 255 mg/dL 70-110 H TESTED AT [place] [address] ([facility]) (test code = [facility] 1538) [address] POCT-GLUCOSE [id number] 17:11:00 Test Item Value Reference Range Interpretation Comments POC-GLUCOSE METER 244 mg/dL 70-110 H TESTED AT [place] [address] ([facility]) (test code = [facility] 1538) [address] POCT-GLUCOSE [id number] 11:54:00 Test Item Value Reference Range Interpretation Comments POC-GLUCOSE METER 209 mg/dL 70-110 H TESTED AT [place] [address] ([facility]) (test code = [facility] 1538) [address] POCT-GLUCOSE [id number] 08:15:00 Test Item Value Reference Range Interpretation Comments POC-GLUCOSE METER 132 mg/dL 70-110 H TESTED AT [place] [address] ([facility]) (test code = [facility] 1538) [address] RAD, CHEST, 1 VIEW, NON [id number] 07:44:00Reason for exam:->edemaShould this be performed at the bedside?->YesFINAL REPORT Chest one view AP 08/07/2017 7:44 AM CLINICAL INDICATION: edema COMPARISON: 05/31/2017 IMPRESSION: Cardiomediastinal contours are stable. There is mild pulmonary edema,asymmetric to the right. There are trace bilateral pleural effusions, with bibasilar linear atelectasis. Sternotomy wires remain midline. Signed: Regan Cespedes Verified Date/Time: 08/07/2017 07:44:22 Reading Location: [facility] Radiology Reading Room [id number] 05:30:00 Test Item Value Reference Range Interpretation Comments FERRITIN (BEAKER) (test code = 361) 87 ng/mL 5-275 CBC W/PLT COUNT & AUTO [id number] 05:21:00 Test Item Value Reference Range Interpretation [...] % 20-55 L (test code = 2590) [id number] 05:11:00 Test Item Value Reference Range Interpretation Comments PHOSPHORUS (BEAKER) (test code = 3.6 mg/dL 2.3-4.7 604) [id number] 05:11:00 Test Item Value Reference Range Interpretation Comments MAGNESIUM (BEAKER) (test code = 2.0 mg/dL 1.6-2.6 627) BASIC METABOLIC [id number] 05:11:00 Test Item Value Reference Range Interpretation [...] 697) EGFR (BEAKER) (test 32 mL/min/1.73 ESTIMA MERNA GFR IS code = 1092) sq m NOT ACCURATE CREATININE CLEARANCE IN PREDICTING GLOMERULAR FILTRATION RATE . ESTIMATED GFR I S NOT APPLICABLE FOR DIALYSIS PATIEN TS. B-TYPE NATRIURETIC FACTOR (BNP)2017-08-07 05:05:00 Test Item Value Reference Range Interpretation Comments B-TYPE NATRIURETIC PEPTIDE 1561 pg/mL 0-100 H (BEAKER) (test code = 700) CALCIUM, [id number] 04:58:00 Test Item Value Reference Range Interpretation Comments CALCIUM IONIZED (BEAKER) (test 1.04 mmol/L 1.12-1.27 L code = 698) PH, BLOOD (BEAKER) (test code = 7.41 1810) RETICULOCYTE [id number] 04:51:00 Test Item Value Reference Range Interpretation Comments RETICULOCYTE COUNT PCT (BEAKER) (test 1.2 % 0.5-1.7 code = 575) POCT-GLUCOSE [id number] 20:49:00 Test Item Value Reference Range Interpretation Comments POC-GLUCOSE METER 202 mg/dL 70-110 H TESTED AT [facility] 6720 (BEAKER) (test code = JULIANO Osborne [facility] 1538) [address] CREATININE, RANDOM [id number] 18:38:00 Test Item Value Reference Range Interpretation Comments CREATININE URINE (BEAKER) (test 56.3 mg/dL code = 375) Reference Range: No NormalsPROTEIN, RANDOM [id number] 18:38:00 Test Item Value Reference Range Interpretation Comments PROTEIN, URINE (BEAKER) (test code 189 mg/dL 0-14 H = 1569) URINALYSIS W/ [id number] 18:34:00 Test Item Value Reference Range Interpretation [...] 516) SOURCE(BEAKER) (test code = Urine, Voided 3542) POCT-GLUCOSE [id number] 17:38:00 Test Item Value Reference Range Interpretation Comments POC-GLUCOSE METER 143 mg/dL 70-110 H TESTED AT [place] [address] (BEAKER) (test code = [facility] 1538) [address] POCT-GLUCOSE [id number] 12:30:00 Test Item Value Reference Range Interpretation Comments POC-GLUCOSE METER 218 mg/dL 70-110 H TESTED AT [place] [address] (BEAKER) (test code = [facility] 1538) [address] POCT-GLUCOSE [id number] 08:00:00 Test Item Value Reference Range Interpretation Comments POC-GLUCOSE METER 134 mg/dL 70-110 H TESTED AT [place] [address] ([facility]) (test code = [facility] 1538) [address] CBC W/PLT COUNT & AUTO [id number] 04:23:00 Test Item Value Reference Range Interpretation [...] (BEAKER) (test code = 2801) BASIC METABOLIC [id number] 04:13:00 Test Item Value Reference Range Interpretation [...] 697) EGFR (BEAKER) (test 29 mL/min/1.73 ESTIMA MERNA GFR IS code = 1092) sq m NOT ACCURATE CREATININE CLEARANCE IN PREDICTING GLOMERULAR FILTRATION RATE . ESTIMATED GFR I S NOT APPLICABLE FOR DIALYSIS PATIEN TS. [id number] 04:10:00 Test Item Value Reference Range Interpretation Comments PHOSPHORUS (BEAKER) (test code = 4.9 mg/dL 2.3-4.7 H 604) [id number] 04:10:00 Test Item Value Reference Range Interpretation Comments MAGNESIUM (BEAKER) (test code = 1.4 mg/dL 1.6-2.6 L 627) [id number] 04:08:00 Test Item Value Reference Range Interpretation Comments FIBRINOGEN LEVEL (BEAKER) (test 548 mg/dl 225-434 H code = 658) [id number] 04:08:00 Test Item Value Reference Range Interpretation Comments PARTIAL THROMBOPLASTIN TIME 37.7 seconds 22.5-36.0 H (BEAKER) (test code = 760) PROTHROMBIN [id number] 04:07:00 Test Item Value Reference Range Interpretation Comments PROTIME (BEAKER) (test code = 16.2 seconds 11.7-14.7 H 759) INR (BEAKER) (test code = 370) 1.3 <=5.9 RECOMMENDED COUMADIN/WARFARIN INR THERAPY RANGESSTANDARD DOSE: 2.0 - 3.0 Includes: PROPHYLAXIS forvenous thrombosis, systemic embolization; TREATMENT for venous thrombosis and/or pulmonary embolus.HIGH RISK: Target INR is 2.5-3.5 for patients with mechanical heart valves.[id number] 16:59:00 Test Item Value Reference Range Interpretation Comments ACTIVATED CLOTTING TIME 219 sec TEST ED AT [facility] 6720 (BEAKER) (test code = J[place]IANO Osborne [place] [address]) [address] BASIC METABOLIC [id number] 14:25:00 Test Item Value Reference Range Interpretation [...] 697) EGFR (BEAKER) (test 23 mL/min/1.73 ESTIMA MERNA GFR IS code = 1092) sq m NOT ACCURATE CREATININE CLEARANCE IN PREDICTING GLOMERULAR FILTRATION RATE . ESTIMATED GFR I S NOT APPLICABLE FOR DIALYSIS PATIEN TS. POCT-GLUCOSE [id number] 13:21:00 Test Item Value Reference Range Interpretation Comments POC-GLUCOSE METER 170 mg/dL 70-110 H TESTED AT [facility] 6720 (BEAKER) (test code = JULIANO Osborne [place] 153) [address] POTASSIUM-STAT [id number] 13:20:00 Test Item Value Reference Range Interpretation Comments POTASSIUM (BEAKER) (test code = 4.2 meq/L 3.6-5.5 379) SODIUM NA-STAT [id number] 13:20:00 Test Item Value Reference Range Interpretation Comments SODIUM (BEAKER) (test code = 381) 133 meq/L 135-148 L HGB/HCT (H&H) - STAT [id number] 12:34:00 Test Item Value Reference Range Interpretation Comments HEMOGLOBIN (BEAKER) (test code = 10.8 g/dL 12.0-15.0 L 410) HEMATOCRIT (BEAKER) (test code = 32.0 % 36.0-45.0 L 411) POTASSIUM-STAT [id number] 08:15:00 Test Item Value Reference Range Interpretation Comments POTASSIUM (BEAKER) (test code = 4.1 meq/L 3.6-5.5 379) BLOOD GAS, [id number] 08:15:00 Test Item Value Reference Range Interpretation [...] code = 1819) 70.0 % SODIUM NA-STAT [id number] 08:15:00 Test Item Value Reference Range Interpretation Comments SODIUM (BEAKER) (test code = 381) 130 meq/L 135-148 L GLUCOSE-STAT [id number] 08:15:00 Test Item Value Reference Range Interpretation Comments GLUCOSE RANDOM (BEAKER) (test code 172 mg/dL 70-110 H = 652) HGB/HCT (H&H) - STAT [id number] 08:15:00 Test Item Value Reference Range Interpretation Comments HEMOGLOBIN (BEAKER) (test code = 8.8 g/dL 12.0-15.0 L 410) HEMATOCRIT (BEAKER) (test code = 26.0 % 36.0-45.0 L 411) BASIC METABOLIC [id number] 07:37:00 Test Item Value Reference Range Interpretation [...] 697) EGFR (BEAKER) (test 26 mL/min/1.73 ESTIMA MERNA GFR IS code = 1092) sq m NOT ACCURATE CREATININE CLEARANCE IN PREDICTING GLOMERULAR FILTRATION RATE . ESTIMATED GFR I S NOT APPLICABLE FOR DIALYSIS PATIEN TS. CBC W/PLT COUNT & AUTO [id number] 07:20:00 Test Item Value Reference Range Interpretation [...] PERCENT (BEAKER) (test code = 2801) POCT-GLUCOSE [id number] 07:03:00 Test Item Value Reference Range Interpretation Comments POC-GLUCOSE METER 186 mg/dL 70-110 H TESTED AT [facility] 6720 (BEAKER) (test code = [place] 1538) [address] B-TYPE NATRIURETIC FACTOR (BNP)2017-06-10 12:44:00 Test Item Value Reference Range Interpretation Comments B-TYPE NATRIURETIC PEPTIDE 1264 pg/mL 0-100 H (BEAKER) (test code = 700) [id number] 12:36:00 Test Item Value Reference Range Interpretation Comments MAGNESIUM (BEAKER) (test code = 1.6 mg/dL 1.6-2.6 627) BASIC METABOLIC [id number] 12:36:00 Test Item Value Reference Range Interpretation [...] 697) EGFR (BEAKER) (test 35 mL/min/1.73 ESTIMA MERNA GFR IS code = 1092) sq m NOT ACCURATE CREATININE CLEARANCE IN PREDICTING GLOMERULAR FILTRATION RATE . ESTIMATED GFR I S NOT APPLICABLE FOR DIALYSIS PATIEN TS. POCT-GLUCOSE [id number] 12:04:00 Test Item Value Reference Range Interpretation Comments POC-GLUCOSE METER 274 mg/dL 70-110 H TESTED AT [facility] 6720 (BEAKER) (test code = [facility] [place] 1538) [address] POCT-GLUCOSE [id number] 07:21:00 Test Item Value Reference Range Interpretation Comments POC-GLUCOSE METER 137 mg/dL 70-110 H TESTED AT [facility] 6720 (BEAKER) (test code = [facility] 1538) [address] BASIC METABOLIC [id number] 05:10:00 Test Item Value Reference Range Interpretation [...] 697) EGFR (BEAKER) (test 32 mL/min/1.73 ESTIMA MERNA GFR IS code = 1092) sq m [...] % 34.1-44.9 L 411) MEAN CORPUSCULAR VOLUME ([facility]) 83.4 fL 79.4-94.8 (test code = 753) MEAN CORPUSCULAR HEMOGLOBIN 25.7 pg 25.6-32.2 ([facility]) (test code = 751) MEAN CORPUSCULAR HEMOGLOBIN CONC 30.9 GM/DL 32.2-35.5 L ([facility]) (test code = 752) RED CELL DISTRIBUTION WIDTH 15.2 % 11.7-14.4 H ([facility]) (test code = 412) PLATELET COUNT ([facility]) (test 320 K/CU MM 150-450 code = 756) MEAN PLATELET VOLUME ([facility]) 9.5 fL 9.4-12.3 (test code = 754) NUCLEATED RED BLOOD CELLS 0 /100 WBC 0-0 ([facility]) (test code = 413) POCT-GLUCOSE [id number] 21:23:00 Test Item Value Reference Range Interpretation Comments POC-GLUCOSE METER 240 mg/dL 70-110 H TESTED AT [place] [address] ([facility]) (test code = [facility] 1538) [address] POCT-GLUCOSE [id number] 16:42:00 Test Item Value Reference Range Interpretation Comments POC-GLUCOSE METER 234 mg/dL 70-110 H TESTED AT [place] [address] ([facility]) (test code = [facility] 1538) [address] POCT-GLUCOSE [id number] 13:22:00 Test Item Value Reference Range Interpretation Comments POC-GLUCOSE METER 166 mg/dL 70-110 H TESTED AT [place] [address] ([facility]) (test code = [facility] 1538) [address] RAD, CHEST, 1 VIEW, NON [id number] 09:43:00Reason for exam:->s/p ACBShould this be performed [...] Ring MDReport Verified Date/Time: 05/31/2017 09:43:30 ReadingLocation: [facility] B1 C013X Ortho Consult Reading Room POCT-GLUCOSE [id number] 06:57:00 Test Item Value Reference Range Interpretation Comments POC-GLUCOSE METER 136 mg/dL 70-110 H TESTED AT [facility] 6720 (BEAKER) (test code = [place] 1538) [address] CALCIUM, [id number] 06:41:00 Test Item Value Reference Range Interpretation Comments CALCIUM IONIZED (BEAKER) (test 1.10 mmol/L 1.12-1.27 L code = 698) PH, BLOOD (BEAKER) (test code = 7.42 1810) [id number] 06:17:00 Test Item Value Reference Range Interpretation Comments PHOSPHORUS (BEAKER) (test code = 3.3 mg/dL 2.3-4.7 604) [id number] 06:17:00 Test Item Value Reference Range Interpretation Comments MAGNESIUM (BEAKER) (test code = 1.8 mg/dL 1.6-2.6 627) BASIC METABOLIC [id number] 06:17:00 Test Item Value Reference Range Interpretation [...] 697) EGFR (BEAKER) (test 30 mL/min/1.73 ESTIMA MERNA GFR IS code = 1092) sq m NOT ACCURATE CREATININE CLEARANCE IN PREDICTING GLOMERULAR FILTRATION RATE . ESTIMATED GFR I S NOT APPLICABLE FOR DIALYSIS PATIEN TS. CBC W/PLT COUNT & AUTO [id number] 05:07:00 Test Item Value Reference Range Interpretation [...] EOSINOPHILS ABSOLUTE COUNT 0.11 K/ L 0.04-0.36 ([facility]) (test code = 416) BASOPHILS ABSOLUTE COUNT ([facility]) 0.05 K/ L 0.01-0.08 (test code = 417) IMMATURE GRANULOCYTES-RELATIVE 1 % 0-1 PERCENT ([facility]) (test code = 2801) POCT-GLUCOSE [id number] 20:56:00 Test Item Value Reference Range Interpretation Comments POC-GLUCOSE METER 196 mg/dL 70-110 H TESTED AT [place] [address] ([facility]) (test code = [facility] 1538) [address] POCT-GLUCOSE [id number] 16:42:00 Test Item Value Reference Range Interpretation Comments POC-GLUCOSE METER 196 mg/dL 70-110 H TESTED AT [place] [address] ([facility]) (test code = [facility] 1538) 27368 POCT-GLUCOSE [id number] 11:45:00 Test Item Value Reference Range Interpretation Comments POC-GLUCOSE METER 215 mg/dL 70-110 H TESTED AT [place] [address] ([facility]) (test code = [facility] 1538) [address]958 RAD, CHEST, 1 VIEW, NON [id number] 11:15:00Reason for exam:->s/p ACBShould this be performed at the bedside?->YesFINAL REPORT Chest one view compared to May 28, 2017 Discussion: Airspace opacities are seen in both lower lung regions, probably atelectasis. Correlate clinically for infection. I could not exclude small effusions. No pneumothorax. Upper lungs clear. Signed: Jeannette Nava Verified Date/Time: 05/30/2017 11:15:07 Reading Location: [facility] Radiology Reading Room CALCIUM, [id number] 09:21:00 Test Item Value Reference Range Interpretation Comments CALCIUM IONIZED (BEAKER) (test 1.11 mmol/L 1.12-1.27 L code = 698) PH, BLOOD ([facility]) (test code = 7.36 1810) BASIC METABOLIC [id number] 07:37:00 Test Item Value Reference Range Interpretation [...] 697) EGFR (BEAKER) (test 29 mL/min/1.73 ESTIMA MERNA GFR IS code = 1092) sq m NOT ACCURATE CREATININE CLEARANCE IN PREDICTING GLOMERULAR FILTRATION RATE . ESTIMATED GFR I S NOT APPLICABLE FOR DIALYSIS PATIEN TS. [id number] 07:28:00 Test Item Value Reference Range Interpretation Comments PHOSPHORUS (BEAKER) (test code = 3.8 mg/dL 2.3-4.7 604) [id number] 07:28:00 Test Item Value Reference Range Interpretation Comments MAGNESIUM (BEAKER) (test code = 1.9 mg/dL 1.6-2.6 627) CBC W/PLT COUNT & AUTO [id number] 07:26:00 Test Item Value Reference Range Interpretation [...] PERCENT (BEAKER) (test code = 2801) POCT-GLUCOSE [id number] 07:21:00 Test Item Value Reference Range Interpretation Comments POC-GLUCOSE METER 146 mg/dL 70-110 H TESTED AT [facility] 6720 [facility] (test code = [place] 1538) [address] POCT-GLUCOSE [id number] 22:02:00 Test Item Value Reference Range Interpretation Comments POC-GLUCOSE METER 201 mg/dL 70-110 H TESTED AT [facility] 6720 (BEAKER) (test code = [place] 1538) [address] POCT-GLUCOSE [id number] 18:27:00 Test Item Value Reference Range Interpretation Comments POC-GLUCOSE METER 240 mg/dL 70-110 H TESTED AT [facility] 6720 (BEAKER) (test code = J[facility]O [facility] 1538) [address]783 POCT-GLUCOSE [id number] 12:13:00 Test Item Value Reference Range Interpretation Comments POC-GLUCOSE METER 193 mg/dL 70-110 H TESTED AT [facility] 6720 (BEAKER) (test code = JULIANO Osborne [facility] 1538) [address] POCT-GLUCOSE [id number] 09:02:00 Test Item Value Reference Range Interpretation Comments POC-GLUCOSE METER 132 mg/dL 70-110 H TESTED AT [facility] 6720 (BEAKER) (test code = JULIANO Osborne [facility] 1538) [address] CALCIUM, [id number] 05:42:00 Test Item Value Reference Range Interpretation Comments CALCIUM IONIZED (BEAKER) (test 1.12 mmol/L 1.12-1.27 code = 698) PH, BLOOD (BEAKER) (test code = 7.34 1810) COMPREHENSIVE METABOLIC [id number] 05:33:00 Test Item Value Reference Range Interpretation [...] 347) EGFR (BEAKER) (test 29 mL/min/1.73 ESTIMA MERNA GFR IS code = 1092) sq m NOT ACCURATE CREATININE CLEARANCE IN PREDICTING GLOMERULAR FILTRATION RATE . ESTIMATED GFR I S NOT APPLICABLE FOR DIALYSIS PATIEN TS. [id number] 05:32:00 Test Item Value Reference Range Interpretation Comments PHOSPHORUS (BEAKER) (test code = 3.6 mg/dL 2.3-4.7 604) [id number] 05:32:00 Test Item Value Reference Range Interpretation Comments MAGNESIUM (BEAKER) (test code = 2.2 mg/dL 1.6-2.6 627) CBC W/PLT COUNT & AUTO [id number] 05:01:00 Test Item Value Reference Range Interpretation [...] PERCENT (BEAKER) (test code = 2801) POCT-GLUCOSE [id number] 21:04:00 Test Item Value Reference Range Interpretation Comments POC-GLUCOSE METER 165 mg/dL 70-110 H TESTED AT [place] [address] ([facility]) [facility] 1538) [address] POCT-GLUCOSE [id number] 17:30:00 Test Item Value Reference Range Interpretation Comments POC-GLUCOSE METER 236 mg/dL 70-110 H TESTED AT [place] [id number] ([facility]) (test code = [facility] 1538) [address] RAD, CHEST, 1 VIEW, NON [id number] 13:53:00Reason for exam:->assess for ill-defined opacityShould this [...] MDReport Verified Date/Time: 05/28/2017 13:53:03 Reading Location: [address] Radiology Reading Room POCT-GLUCOSE [id number] 11:53:00 Test Item Value Reference Range Interpretation Comments POC-GLUCOSE METER 215 mg/dL 70-110 H TESTED AT [place] [address] (BEAKER) (test code = [facility] 1538) [address] POCT-GLUCOSE [id number] 08:32:00 Test Item Value Reference Range Interpretation Comments POC-GLUCOSE METER 168 mg/dL 70-110 H TESTED AT [place] [address] (BEAKER) (test code = [facility] 1538) [address] CALCIUM, [id number] 05:44:00 Test Item Value Reference Range Interpretation Comments CALCIUM IONIZED (BEAKER) (test 1.09 mmol/L 1.12-1.27 L code = 698) PH, BLOOD (BEAKER) (test code = 7.38 1810) [id number] 05:44:00 Test Item Value Reference Range Interpretation Comments PHOSPHORUS (BEAKER) (test code = 3.5 mg/dL 2.3-4.7 604) [id number] 05:44:00 Test Item Value Reference Range Interpretation Comments MAGNESIUM (BEAKER) (test code = 1.9 mg/dL 1.6-2.6 627) BASIC METABOLIC [id number] 05:44:00 Test Item Value Reference Range Interpretation [...] 697) EGFR (BEAKER) (test 38 mL/min/1.73 ESTIMA MERNA GFR IS code = 1092) sq m NOT ACCURATE CREATININE CLEARANCE IN PREDICTING GLOMERULAR FILTRATION RATE . ESTIMATED GFR I S NOT APPLICABLE FOR DIALYSIS PATIEN TS. CBC W/PLT COUNT & AUTO [id number] 05:05:00 Test Item Value Reference Range Interpretation [...] LYMPHOCYTES ABSOLUTE COUNT 1.80 K/ L 1.18-3.74 ([facility]) (test code = 414) MONOCYTES ABSOLUTE COUNT (BEAKER) 0.45 K/ L 0.24-0.36 H (test code = 415) EOSINOPHILS ABSOLUTE COUNT 0.25 K/ L 0.04-0.36 (AKER) (test code = 416) BASOPHILS ABSOLUTE COUNT ([facility]) 0.05 K/ L 0.01-0.08 (test code = 417) IMMATURE GRANULOCYTES-RELATIVE 1 % 0-1 PERCENT ([facility]) (test code = 2801) POCT-GLUCOSE [id number] 21:03:00 Test Item Value Reference Range Interpretation Comments POC-GLUCOSE METER 173 mg/dL 70-110 H TESTED AT [place] [address] ([facility]) (test code = JULIANO Osborne [facility] 1538) [address] [id number] 18:15:00 Test Item Value Reference Range Interpretation Comments ACTIVATED CLOTTING TIME 147 sec TEST ED AT [place] [address] ([facility]) (test code = JULIANO Osborne [facility] 441) [address] [id number] 18:15:00 Test Item Value Reference Range Interpretation Comments ACTIVATED CLOTTING TIME 246 sec TEST ED AT [place] [address] ([facility]) (test code = [place]borne [place] [address]) [address] POCT-GLUCOSE [id number] 12:39:00 Test Item Value Reference Range Interpretation Comments POC-GLUCOSE METER 219 mg/dL 70-110 H TESTED AT [place] [address] ([facility]) (test code = JULIANO Osborne [facility] 1538) [address] RAD, CHEST, 1 VIEW, NON [id number] 10:11:00Reason for exam:->pl effusionShould this be performed at the bedside?->YesFINAL REPORT Chest one view compared to May 26 Discussion: There is cardiac prominence. Upper lungs are clear. Ill-defined basilar densities are similar probably atelectasis. No gross effusion or pneumothorax with bilateral chest tubes in place. Signed: Jeannette Nava Verified Date/Time: 05/27/2017 10:11:44 Reading Location: [facility] Radiology Reading Room POCT-GLUCOSE METER 2017-05-27 07:05:00 Test Item Value Reference Range Interpretation Comments POC-GLUCOSE METER 167 mg/dL 70-110 H TESTED AT [facility] 6720 (BEAKER) (test code = [place] 1538) [address] CALCIUM, [id number] 06:20:00 Test Item Value Reference Range Interpretation Comments CALCIUM IONIZED (BEAKER) (test 0.98 mmol/L 1.12-1.27 L code = 698) PH, BLOOD (BEAKER) (test code = 7.50 1810) [id number] 04:56:00 Test Item Value Reference Range Interpretation Comments PHOSPHORUS (BEAKER) (test code = 2.6 mg/dL 2.3-4.7 604) [id number] 04:56:00 Test Item Value Reference Range Interpretation Comments MAGNESIUM (BEAKER) (test code = 2.0 mg/dL 1.6-2.6 627) BASIC METABOLIC [id number] 04:56:00 Test Item Value Reference Range Interpretation [...] 697) EGFR (BEAKER) (test 37 mL/min/1.73 ESTIMA MERNA GFR IS code = 1092) sq m NOT ACCURATE CREATININE CLEARANCE IN PREDICTING GLOMERULAR FILTRATION RATE . ESTIMATED GFR I S NOT APPLICABLE FOR DIALYSIS PATIEN TS. CBC W/PLT COUNT & AUTO [id number] 04:36:00 Test Item Value Reference Range Interpretation [...] 417) IMMATURE GRANULOCYTES-RELATIVE 1 % 0-1 PERCENT ([facility]) (test code = 2801) POCT-GLUCOSE [id number] 21:29:00 Test Item Value Reference Range Interpretation Comments POC-GLUCOSE METER 147 mg/dL 70-110 H TESTED AT [place] [address] ([facility]) (test code = JULIANO Osborne [facility] 1538) [address] POCT-GLUCOSE [id number] 17:51:00 Test Item Value Reference Range Interpretation Comments POC-GLUCOSE METER 224 mg/dL 70-110 H TESTED AT [place] [address] ([facility]) (test code = [facility] Dylon [facility] 1538) [address]486 POCT-GLUCOSE [id number] 13:53:00 Test Item Value Reference Range Interpretation Comments POC-GLUCOSE METER 182 mg/dL 70-110 H TESTED AT [place] [address] ([facility]) (test code = [facility] Dylon [facility] 1538) [address] RAD, CHEST, 1 VIEW, NON [id number] 08:44:00Reason for exam:->pl effusionShould this be performed [...] No other significant change. Signed: Olaf Ortega [facility] Verified Date/Time: 05/26/2017 08:44:25 Reading Location: [address] Radiology Reading Room POCT- GLUCOSE [id number] 07:43:00 Test Item Value Reference Range Interpretation Comments POC-GLUCOSE METER 113 mg/dL 70-110 H TESTED AT [place] [address] ([facility]) (test code = [facility] Dylon [facility] 1538) [address]35 CALCIUM, [id number] 06:31:00 Test Item Value Reference Range Interpretation Comments CALCIUM IONIZED ([facility]) (test 1.07 mmol/L 1.12-1.27 L code = 698) PH, BLOOD (BEAKER) (test code = 7.38 1810) [id number] 04:51:00 Test Item Value Reference Range Interpretation Comments PHOSPHORUS (BEAKER) (test code = 3.2 mg/dL 2.3-4.7 604) [id number] 04:51:00 Test Item Value Reference Range Interpretation Comments MAGNESIUM (BEAKER) (test code = 2.1 mg/dL 1.6-2.6 627) BASIC METABOLIC [id number] 04:51:00 Test Item Value Reference Range Interpretation [...] 697) EGFR (BEAKER) (test 35 mL/min/1.73 ESTIMA MERNA GFR IS code = 1092) sq m NOT ACCURATE CREATININE CLEARANCE IN PREDICTING GLOMERULAR FILTRATION RATE . ESTIMATED GFR I S NOT APPLICABLE FOR DIALYSIS PATIEN TS. CBC W/PLT COUNT & AUTO [id number] 04:27:00 Test Item Value Reference Range Interpretation [...] PERCENT (BEAKER) (test code = 2801) POCT-GLUCOSE [id number] 23:48:00 Test Item Value Reference Range Interpretation Comments POC-GLUCOSE METER 123 mg/dL 70-110 H TESTED AT [facility] 6720 (BEAKER) (test code = [facility] [place] 1538) [address] POCT-GLUCOSE [id number] 16:46:00 Test Item Value Reference Range Interpretation Comments POC-GLUCOSE METER 178 mg/dL 70-110 H TESTED AT [facility] 6720 (BEAKER) (test code = [place] 1538) [address] BASIC METABOLIC [id number] 05:53:00 Test Item Value Reference Range Interpretation [...] 697) EGFR (BEAKER) (test 25 mL/min/1.73 ESTIMA MERNA GFR IS code = 1092) sq m NOT ACCURATE CREATININE CLEARANCE IN PREDICTING GLOMERULAR FILTRATION RATE . ESTIMATED GFR I S NOT APPLICABLE FOR DIALYSIS PATIEN TS. [id number] 05:52:00 Test Item Value Reference Range Interpretation Comments PHOSPHORUS (BEAKER) (test code = 4.2 mg/dL 2.3-4.7 604) [id number] 05:52:00 Test Item Value Reference Range Interpretation Comments MAGNESIUM (BEAKER) (test code = 2.3 mg/dL 1.6-2.6 627) CALCIUM, [id number] 05:27:00 Test Item Value Reference Range Interpretation Comments CALCIUM IONIZED (BEAKER) (test 1.12 mmol/L 1.12-1.27 code = 698) PH, BLOOD (BEAKER) (test code = 7.38 1810) CBC W/PLT COUNT & AUTO [id number] 05:07:00 Test Item Value Reference Range Interpretation [...] = 2801) RAD, CHEST, 1 VIEW, NON [id number] 04:45:00Reason for exam:->pl effusionShould this be performed at the bedside?->YesFINAL REPORT RAD, CHEST, 1 VIEW, NON DEPT INDICATION: pl effusion COMPARISON:Prior day's exam FINDINGS: Portable frontal view of the chest. IMPRESSION: Support Lines: Stable.Lungs and pleura: Unchanged airspace and pleural opacities. No pneumothorax.Heart and mediastinum: Stable contours. Stable surgical changes.Additional findings: None. Signed: JR Boswell Robert MDReport Verified Date/Time: 05/25/2017 04:45:08 Reading Location: [facility] C013Y CT Body Reading Room POCT-GLUCOSE [id number] 01:52:00 Test Item Value Reference Range Interpretation Comments POC-GLUCOSE METER 126 mg/dL 70-110 H TESTED AT [place] [address] ([facility]) (test code = JULIANO Osborne [facility] 1538) [address] POCT-GLUCOSE [id number] 13:07:00 Test Item Value Reference Range Interpretation Comments POC-GLUCOSE METER 118 mg/dL 70-110 H TESTED AT [place] [address] ([facility]) (test code = JULIANO Osborne [facility] 1538) [address] BRONCHIAL CULTURE + GRAM [id number] 11:35:00 Test Item Value Reference Range Interpretation Comments CULTURE ([facility]) (test code = 1095) Amikacin [...] <1+ gram (BEAKER) (test code = positive 848866) cocci in pairs GRAM STAIN RESULT 1+ gram (BEAKER) (test code = variable rods 077217) 1+ Normal respiratory todd presentRAD, CHEST, 1 VIEW, NON [id number] 06:50:00Reason for exam:->pl effusionShould this be performed at the bedside?->YesFINAL REPORT RAD, CHEST, 1 VIEW, NON DEPT INDICATION: pl effusion COMPARISON:Prior day's exam FINDINGS: Portable frontal view of the chest. IMPRESSION: Support Lines: Stable.Lungs and pleura: Unchanged airspace and pleural opacities. No pneumothorax.Heart and mediastinum: Stable contours. Stable surgical changes.Additional findings: None. Signed: JR Boswell Robert MDReport Verified Date/Time: 05/24/2017 06:50:08 Reading Location: [facility] C013Y CT Body Reading Room BASIC METABOLIC [id number] 04:19:00 Test Item Value Reference Range Interpretation [...] 697) EGFR (BEAKER) (test 18 mL/min/1.73 ESTIMA MERNA GFR IS code = 1092) sq m NOT ACCURATE CREATININE CLEARANCE IN PREDICTING GLOMERULAR FILTRATION RATE . ESTIMATED GFR I S NOT APPLICABLE FOR DIALYSIS PATIEN TS. CALCIUM, [id number] 04:16:00 Test Item Value Reference Range Interpretation Comments CALCIUM IONIZED (BEAKER) (test 1.06 mmol/L 1.12-1.27 L code = 698) PH, BLOOD (BEAKER) (test code = 7.40 1810) [id number] 04:11:00 Test Item Value Reference Range Interpretation Comments PHOSPHORUS (BEAKER) (test code = 6.0 mg/dL 2.3-4.7 H 604) [id number] 04:11:00 Test Item Value Reference Range Interpretation Comments MAGNESIUM (BEAKER) (test code = 2.4 mg/dL 1.6-2.6 627) CBC W/PLT COUNT & AUTO [id number] 03:50:00 Test Item Value Reference Range Interpretation [...] PERCENT (BEAKER) (test code = 2801) POCT-GLUCOSE [id number] 20:45:00 Test Item Value Reference Range Interpretation Comments POC-GLUCOSE METER 143 mg/dL 70-110 H TESTED AT [place] [address] ([facility]) ([facility] = [facility] 1538) 28056 POCT-GLUCOSE [id number] 20:45:00 Test Item Value Reference Range Interpretation Comments POC-GLUCOSE METER 145 mg/dL 70-110 H TESTED AT [place] [id number] ([facility]) (test code = [facility] 1538) [address] [id number] 13:37:00 Test Item Value Reference Range Interpretation Comments PREALBUMIN (AKER) 10 mg/dL 14-45 L Specimen slightly (test code = 586) hemolyzed OXYGEN SATURATION, [id number] 12:31:00 Test Item Value Reference Range Interpretation Comments O2 SATURATION (MEASURED) (AKER) 94.5 % (test code = 1455) [id number] 11:02:00 Test Item Value Reference Range Interpretation Comments PREALBUMIN (BEAKER) (test code = 10 mg/dL 14-45 L 586) RAD, CHEST, 1 VIEW, NON [id number] 05:14:00while patient is intubated or has chest [...] Verified Date/Time: 05/23/2017 05:14:04 Reading Location: [address] Body Reading Room BASIC METABOLIC [id number] 03:48:00 Test Item Value Reference Range Interpretation [...] 697) EGFR (BEAKER) (test 18 mL/min/1.73 ESTIMA MERNA GFR IS code = 1092) sq m NOT ACCURATE CREATININE CLEARANCE IN PREDICTING GLOMERULAR FILTRATION RATE . ESTIMATED GFR I S NOT APPLICABLE FOR DIALYSIS PATIEN TS. [id number] 03:46:00 Test Item Value Reference Range Interpretation Comments MAGNESIUM (BEAKER) 2.4 mg/dL 1.6-2.6 Specimen slightly (test code = 627) hemolyzed [id number] 03:46:00 Test Item Value Reference Range Interpretation Comments PHOSPHORUS (BEAKER) 6.5 mg/dL 2.3-4.7 H Specimen slightly (test code = 604) hemolyzed CBC W/PLT COUNT & AUTO [id number] 03:26:00 Test Item Value Reference Range Interpretation [...] (BEAKER) (test code = 2801) BLOOD GAS, [id number] 03:18:00 Test Item Value Reference Range Interpretation [...] (test code = 1819) 36.0 % CALCIUM, [id number] 16:32:00 Test Item Value Reference Range Interpretation Comments CALCIUM IONIZED (BEAKER) (test 1.11 mmol/L 1.12-1.27 L code = 698) PH, BLOOD (BEAKER) (test code = 7.39 1810) BASIC METABOLIC [id number] 15:43:00 Test Item Value Reference Range Interpretation [...] 697) EGFR (BEAKER) (test 15 mL/min/1.73 ESTIMA MERNA GFR IS code = 1092) sq m NOT ACCURATE CREATININE CLEARANCE IN PREDICTING GLOMERULAR FILTRATION RATE . ESTIMATED GFR I S NOT APPLICABLE FOR DIALYSIS PATIEN TS. POCT-GLUCOSE [id number] 12:53:00 Test Item Value Reference Range Interpretation Comments POC-GLUCOSE METER 118 mg/dL 70-110 H TESTED AT [place] [address] ([facility]) (test code = [facility] 1538) [id number] BLOOD GAS, [id number] 10:42:00 Test Item Value Reference Range Interpretation [...] (test code = 1819) 40.0 % POCT-GLUCOSE [id number] 06:46:00 Test Item Value Reference Range Interpretation Comments POC-GLUCOSE METER 106 mg/dL 70-110 TESTED AT [place] [address] ([facility]) (test code = [facility] 1538) [id number] RAD, CHEST, 1 VIEW, NON [id number] 05:05:00while patient is intubated or has chest [...] MDRepemily Verified Date/Time: 05/22/2017 05:05:00 Reading Location: [facility] B1 C013Y CT Body ReadingRoom BASIC METABOLIC [id number] 05:00:00 Test Item Value Reference Range Interpretation [...] 697) EGFR (BEAKER) (test 15 mL/min/1.73 ESTIMA MERNA GFR IS code = 1092) sq m NOT ACCURATE CREATININE CLEARANCE IN PREDICTING GLOMERULAR FILTRATION RATE . ESTIMATED GFR I S NOT APPLICABLE FOR DIALYSIS PATIEN TS. [id number] 04:41:00 Test Item Value Reference Range Interpretation Comments PHOSPHORUS (BEAKER) (test code = 6.4 mg/dL 2.3-4.7 H 604) [id number] 04:41:00 Test Item Value Reference Range Interpretation Comments MAGNESIUM (BEAKER) (test code = 2.6 mg/dL 1.6-2.6 627) CALCIUM, [id number] 04:26:00 Test Item Value Reference Range Interpretation Comments CALCIUM IONIZED (BEAKER) (test 1.09 mmol/L 1.12-1.27 L code = 698) PH, BLOOD (BEAKER) (test code = 7.40 1810) OXYGEN SATURATION, [id number] 04:25:00 Test Item Value Reference Range Interpretation Comments O2 SATURATION (MEASURED) (BEAKER) 77.0 % (test code = 1455) CBC W/PLT COUNT & AUTO [id number] 04:17:00 Test Item Value Reference Range Interpretation [...] code = 2801) LACTIC ACID, ARTERIAL, WHOLE [id number] 00:07:00 Test Item Value Reference Range Interpretation Comments LACTATE BLOOD 1.0 mmol/L 0.5-2.2 Specimen sligh tly ARTERIAL (2) (BEAKER) hemoly zed (test code = 2874) Effective 08/02/2015: Units/Reference Range ChangeNew: 0.5-2.2 mmol/L Previous: 5-20 mg/dLPOCT-GLUCOSE [id number] 23:47:00 Test Item Value Reference Range Interpretation Comments POC-GLUCOSE METER 180 mg/dL 70-110 H TESTED AT [facility] 6720 (BEAKER) (test code = MATTHIASAMANDA Dylon FARAZ REYEZ 1538) [address] BLOOD GAS, [id number] 23:46:00 Test Item Value Reference Range Interpretation [...] code = 1819) 100.0 % SODIUM NA-STAT [id number] 23:46:00 Test Item Value Reference Range Interpretation Comments SODIUM (BEAKER) (test code = 381) 134 meq/L 135-148 L GLUCOSE-STAT [id number] 23:46:00 Test Item Value Reference Range Interpretation Comments GLUCOSE RANDOM (BEAKER) (test code 119 mg/dL 70-110 H = 652) HGB/HCT (H&H) - STAT [id number] 23:46:00 Test Item Value Reference Range Interpretation Comments HEMOGLOBIN (BEAKER) (test code = 8.8 g/dL 12.0-15.0 L 410) HEMATOCRIT (BEAKER) (test code = 26.0 % 36.0-45.0 L 411) OXYGEN SATURATION, [id number] 23:45:00 Test Item Value Reference Range Interpretation Comments O2 SATURATION (MEASURED) (BEAKER) 68.1 % (test code = 1455) POTASSIUM-STAT [id number] 23:45:00 Test Item Value Reference Range Interpretation Comments POTASSIUM (BEAKER) (test code = 5.5 meq/L 3.6-5.5 379) POCT-GLUCOSE [id number] 20:58:00 Test Item Value Reference Range Interpretation Comments POC-GLUCOSE METER 133 mg/dL 70-110 H TESTED AT [facility] 67 ([facility]) (test code = [place] 1538) [address] POCT-GLUCOSE [id number] 17:58:00 Test Item Value Reference Range Interpretation Comments POC-GLUCOSE METER 210 mg/dL 70-110 H TESTED AT [facility] 67 ([facility]) (test code = [place] 1538) [address] POCT-GLUCOSE [id number] 17:58:00 Test Item Value Reference Range Interpretation Comments POC-GLUCOSE METER 211 mg/dL 70-110 H TESTED AT [facility] 6720 ([facility]) (test code = [place] 1538) [address] POCT-GLUCOSE [id number] 17:58:00 Test Item Value Reference Range Interpretation Comments POC-GLUCOSE METER 232 mg/dL 70-110 H TESTED AT [facility] 6720 ([facility]) (test code = [place] 1538) [address] POCT-GLUCOSE [id number] 17:58:00 Test Item Value Reference Range Interpretation Comments POC-GLUCOSE METER 262 mg/dL 70-110 H TESTED AT [place] [address] (BEAKER) (test code = [facility] 1538) [address] BLOOD GAS, [id number] 17:01:00 Test Item Value Reference Range Interpretation [...] (test code = 1819) 60.0 % POTASSIUM-STAT [id number] 17:00:00 Test Item Value Reference Range Interpretation Comments POTASSIUM (BEAKER) (test code = 4.8 meq/L 3.6-5.5 379) POCT-GLUCOSE [id number] 15:52:00 Test Item Value Reference Range Interpretation Comments POC-GLUCOSE METER 267 mg/dL 70-110 H TESTED AT [place] [address] (BEAKER) (test code = [facility] 1538) [address] POCT-GLUCOSE [id number] 14:42:00 Test Item Value Reference Range Interpretation Comments POC-GLUCOSE METER 231 mg/dL 70-110 H TESTED AT [place] [address] (BEAKER) (test code = [facility] 1538) [address] BODY FLUID CELL COUNT WITH [id number] 14:41:00 Test Item Value Reference Range Interpretation [...] Tube (test code = 2873) BASIC METABOLIC [id number] 14:11:00 Test Item Value Reference Range Interpretation [...] 697) EGFR (BEAKER) (test 20 mL/min/1.73 ESTIMA MERNA GFR IS code = 1092) sq m NOT ACCURATE CREATININE CLEARANCE IN PREDICTING GLOMERULAR FILTRATION RATE . ESTIMATED GFR I S NOT APPLICABLE FOR DIALYSIS PATIEN TS. [id number] 14:08:00 Test Item Value Reference Range Interpretation Comments PHOSPHORUS (BEAKER) (test code = 7.2 mg/dL 2.3-4.7 H 604) [id number] 14:08:00 Test Item Value Reference Range Interpretation Comments MAGNESIUM (BEAKER) (test code = 2.6 mg/dL 1.6-2.6 627) POCT-GLUCOSE [id number] 12:49:00 Test Item Value Reference Range Interpretation Comments POC-GLUCOSE METER 224 mg/dL 70-110 H TESTED AT [facility] 6720 (BEAKER) (test code = [place] 1538) [address] POCT-GLUCOSE [id number] 12:49:00 Test Item Value Reference Range Interpretation Comments POC-GLUCOSE METER 248 mg/dL 70-110 H TESTED AT [facility] 6720 (BEAKER) (test code = [place] 1538) [address] RAD, CHEST, 1 VIEW, NON [id number] 12:32:00Reason for exam:->re-intubationShould this be performed at [...] pneumothorax is grossly unchanged. Signed: Mona White [facility] Verified Date/Time: 05/21/2017 12:32:08 Reading Location: [facility] Reading Room POTASSIUM-STAT [id number] 12:28:00 Test Item Value Reference Range Interpretation Comments POTASSIUM (BEAKER) (test code = 5.5 meq/L 3.6-5.5 379) BLOOD GAS, [id number] 12:28:00 Test Item Value Reference Range Interpretation [...] code = 1819) 100.0 % BLOOD GAS, [id number] 10:53:00 Test Item Value Reference Range Interpretation [...] 36.0 % RAD, CHEST, 1 VIEW, NON [id number] 08:46:00while patient is intubated or has chest [...] MDReport Verified Date/Time: 05/21/2017 08:46:27 Reading Location: [facility] Reading Room BLOOD GAS, [id number] 05:41:00 Test Item Value Reference Range Interpretation [...] (BEAKER) (test code = 1819) 40 CALCIUM, [id number] 04:35:00 Test Item Value Reference Range Interpretation Comments CALCIUM IONIZED (BEAKER) (test 1.13 mmol/L 1.12-1.27 code = 698) PH, BLOOD (BEAKER) (test code = 7.32 1810) BLOOD GAS, [id number] 04:28:00 Test Item Value Reference Range Interpretation [...] (BEAKER) (test code = 1819) 40.0 % [id number] 04:20:00 Test Item Value Reference Range Interpretation Comments PHOSPHORUS (BEAKER) (test code = 6.2 mg/dL 2.3-4.7 H 604) [id number] 04:20:00 Test Item Value Reference Range Interpretation Comments MAGNESIUM (BEAKER) (test code = 2.4 mg/dL 1.6-2.6 627) HEPATIC FUNCTION [id number] 04:20:00 Test Item Value Reference Range Interpretation [...] = 11 U/L 6-55 347) BASIC METABOLIC [id number] 04:20:00 Test Item Value Reference Range Interpretation [...] 697) EGFR (BEAKER) (test 27 mL/min/1.73 ESTIMA MERNA GFR IS code = 1092) sq m NOT ACCURATE CREATININE CLEARANCE IN PREDICTING GLOMERULAR FILTRATION RATE . ESTIMATED GFR I S NOT APPLICABLE FOR DIALYSIS PATIEN TS. OXYGEN SATURATION, [id number] 04:18:00 Test Item Value Reference Range Interpretation Comments O2 SATURATION (MEASURED) (BEAKER) 68.0 % (test code = 1455) LACTIC ACID, ARTERIAL, WHOLE [id number] 04:12:00 Test Item Value Reference Range Interpretation Comments LACTATE BLOOD ARTERIAL (2) 1.0 mmol/L 0.5-2.2 (BEAKER) (test code = 2874) Effective 08/02/2015: Units/Reference Range ChangeNew: 0.5-2.2 mmol/L Previous: 5-20 mg/dLCBC W/PLT COUNT & AUTO [id number] 04:00:00 Test Item Value Reference Range Interpretation [...] (BEAKER) (test code = 2801) BLOOD GAS, [id number] 00:06:00 Test Item Value Reference Range Interpretation [...] (BEAKER) (test code = 1819) 40.0 % [id number] 18:55:00 Test Item Value Reference Range Interpretation Comments PHOSPHORUS (BEAKER) (test code = 4.8 mg/dL 2.3-4.7 H 604) [id number] 18:55:00 Test Item Value Reference Range Interpretation Comments MAGNESIUM (BEAKER) (test code = 2.3 mg/dL 1.6-2.6 627) BASIC METABOLIC [id number] 18:55:00 Test Item Value Reference Range Interpretation [...] 697) EGFR (BEAKER) (test 33 mL/min/1.73 ESTIMA MERNA GFR IS code = 1092) sq m NOT ACCURATE CREATININE CLEARANCE IN PREDICTING GLOMERULAR FILTRATION RATE . ESTIMATED GFR I S NOT APPLICABLE FOR DIALYSIS PATIEN TS. LACTIC ACID, ARTERIAL, WHOLE [id number] 18:53:00 Test Item Value Reference Range Interpretation Comments LACTATE BLOOD 0.9 mmol/L 0.5-2.2 Specimen sligh tly ARTERIAL (2) (BEAKER) hemoly zed (test code = 2874) Effective 08/02/2015: Units/Reference Range ChangeNew: 0.5-2.2 mmol/L Previous: 5-20 mg/dLRAD, CHEST, 1 VIEW, NON [id number] 18:44:00Reason for exam:- >postop cardiacShould this be [...] MDReport Verified Date/Time: 05/20/2017 18:44:30 Reading Location: [facility] B1 [id number] Consult Reading Room Electronically signed by: MIGUEL BHAKTA M.D. on05/20/2017 06:44 PMCBC W/PLT COUNT & AUTO [id number] 18:38:00 Test Item Value Reference Range Interpretation [...] (BEAKER) (test code = 2801) OXYGEN SATURATION, [id number] 18:36:00 Test Item Value Reference Range Interpretation Comments O2 SATURATION (MEASURED) (BEAKER) 72.5 % (test code = 1455) From distal port of IJ central venous catheterSODIUM NA-STAT [id number] 18:30:00 Test Item Value Reference Range Interpretation Comments SODIUM (BEAKER) (test code = 381) 132 meq/L 135-148 L HGB/HCT (H&H) - STAT [id number] 18:30:00 Test Item Value Reference Range Interpretation Comments HEMOGLOBIN (BEAKER) (test code = 9.4 g/dL 12.0-15.0 L 410) HEMATOCRIT (BEAKER) (test code = 28.0 % 36.0-45.0 L 411) GLUCOSE-STAT [id number] 18:30:00 Test Item Value Reference Range Interpretation Comments GLUCOSE RANDOM (BEAKER) (test code 159 mg/dL 70-110 H = 652) BLOOD GAS, [id number] 18:30:00 Test Item Value Reference Range Interpretation [...] (test code = 1819) 60.0 % CALCIUM, [id number] 18:30:00 Test Item Value Reference Range Interpretation Comments CALCIUM IONIZED (BEAKER) (test 0.94 mmol/L 1.12-1.27 L code = 698) PH, BLOOD (BEAKER) (test code = 7.34 1810) POTASSIUM-STAT [id number] 18:28:00 Test Item Value Reference Range Interpretation [...] (test 0.0 % 0.0-5.0 code = 1414) [id number] 17:53:00 Test Item Value Reference Range Interpretation Comments ACTIVATED CLOTTING TIME 103 sec TEST ED AT [place] [address] ([facility]) (test code = [place]ASAMANDA [place] [address]) [address] [id number] 17:53:00 Test Item Value Reference Range Interpretation Comments ACTIVATED CLOTTING TIME 466 sec TEST ED AT [place] [address] ([facility]) (test code = [place] [address]) [address] [id number] 17:53:00 Test Item Value Reference Range Interpretation Comments ACTIVATED CLOTTING TIME 543 sec TEST ED AT [place] [address] ([facility]) (test code = [place]DA [place] [address]) [address] [id number] 17:53:00 Test Item Value Reference Range Interpretation Comments ACTIVATED CLOTTING TIME 549 sec TEST ED AT [place] [address] ([facility]) (test code = MATTHIASAMANDA Osborne [place] [address]) [address] [id number] 17:53:00 Test Item Value Reference Range Interpretation Comments ACTIVATED CLOTTING TIME 632 sec TEST ED AT [place] [address] ([facility]) (test code = [place] [address]) [address] [id number] 17:53:00 Test Item Value Reference Range Interpretation Comments ACTIVATED CLOTTING TIME 494 sec TEST ED AT [place] [address] ([facility]) (test code = JULIANO [place]borne [place] [address]) [address] [id number] 17:53:00 Test Item Value Reference Range Interpretation Comments ACTIVATED CLOTTING TIME 587 sec TEST ED AT [place] [address] ([facility]) (test code = JULIANO Osborne [facility] 441) [address] [id number] 17:53:00 Test Item Value Reference Range Interpretation Comments ACTIVATED CLOTTING TIME 626 sec TEST ED AT [place] [address] ([facility]) (test code = [place]IANO Osborne [place] [address]) [address] [id number] 17:52:00 Test Item Value Reference Range Interpretation Comments ACTIVATED CLOTTING TIME 808 sec TEST ED AT [place] [address] ([facility]) (test code = [place]IANO [place]borne [place] [address]) [address] [id number] 16:54:00 Test Item Value Reference Range Interpretation Comments PARTIAL THROMBOPLASTIN TIME 40.2 seconds 22.5-36.0 H ([facility]) (test code = 760) [id number] 16:53:00 Test Item Value Reference Range Interpretation Comments FIBRINOGEN LEVEL ([facility]) (test 306 mg/dl 225-434 code = 658) PROTHROMBIN [id number] 16:50:00 Test Item Value Reference Range Interpretation Comments PROTIME ([facility]) (test code = 19.6 seconds 11.7-14.7 H 759) INR ([facility]) (test code = 370) 1.7 <=5.9 RECOMMENDED COUMADIN/WARFARIN INR THERAPY RANGESSTANDARD DOSE: 2.0 - 3.0 Includes: PROPHYLAXIS forvenous thrombosis, systemic embolization; TREATMENT for venous thrombosis and/or pulmonary embolus.HIGH RISK: Target INR is 2.5-3.5 for patients with mechanical heart valves.PLATELET [id number] 16:45:00 Test Item Value Reference Range Interpretation Comments PLATELET COUNT ([facility]) (test 136 K/CU MM 150-450 L code = 756) POTASSIUM-STAT [id number] 16:15:00 Test Item Value Reference Range Interpretation Comments POTASSIUM ([facility]) (test code = 4.9 meq/L 3.6-5.5 379) BLOOD GAS, [id number] 16:15:00 Test Item Value Reference Range Interpretation [...] code = 1819) 100.0 % SODIUM NA-STAT [id number] 16:15:00 Test Item Value Reference Range Interpretation Comments SODIUM (BEAKER) (test code = 381) 131 meq/L 135-148 L GLUCOSE-STAT [id number] 16:15:00 Test Item Value Reference Range Interpretation Comments GLUCOSE RANDOM (BEAKER) (test code 198 mg/dL 70-110 H = 652) HGB/HCT (H&H) - STAT [id number] 16:15:00 Test Item Value Reference Range Interpretation Comments HEMOGLOBIN (BEAKER) (test code = 7.5 g/dL 12.0-15.0 L 410) HEMATOCRIT (BEAKER) (test code = 22.0 % 36.0-45.0 L 411) CALCIUM, [id number] 16:14:00 Test Item Value Reference Range Interpretation Comments CALCIUM IONIZED (BEAKER) (test 0.91 mmol/L 1.12-1.27 L code = 698) PH, BLOOD (BEAKER) (test code = 7.39 1810) BLOOD GAS, [id number] 15:39:00 Test Item Value Reference Range Interpretation [...] code = 1819) 70.0 % SODIUM NA-STAT [id number] 15:39:00 Test Item Value Reference Range Interpretation Comments SODIUM (BEAKER) (test code = 381) 131 meq/L 135-148 L GLUCOSE-STAT [id number] 15:39:00 Test Item Value Reference Range Interpretation Comments GLUCOSE RANDOM (BEAKER) (test code 186 mg/dL 70-110 H = 652) HGB/HCT (H&H) - STAT [id number] 15:39:00 Test Item Value Reference Range Interpretation Comments HEMOGLOBIN (BEAKER) (test code = 7.5 g/dL 12.0-15.0 L 410) HEMATOCRIT (BEAKER) (test code = 22.0 % 36.0-45.0 L 411) POTASSIUM-STAT [id number] 15:38:00 Test Item Value Reference Range Interpretation Comments POTASSIUM (BEAKER) (test code = 5.3 meq/L 3.6-5.5 379) BLOOD GAS, [id number] 15:24:00 Test Item Value Reference Range Interpretation [...] code = 1819) 70.0 % SODIUM NA-STAT [id number] 15:24:00 Test Item Value Reference Range Interpretation Comments SODIUM (BEAKER) (test code = 381) 130 meq/L 135-148 L GLUCOSE-STAT [id number] 15:24:00 Test Item Value Reference Range Interpretation Comments GLUCOSE RANDOM (BEAKER) (test code 189 mg/dL 70-110 H = 652) HGB/HCT (H&H) - STAT [id number] 15:24:00 Test Item Value Reference Range Interpretation Comments HEMOGLOBIN (BEAKER) (test code = 6.7 g/dL 12.0-15.0 L 410) HEMATOCRIT (BEAKER) (test code = 20.0 % 36.0-45.0 L 411) POTASSIUM-STAT [id number] 15:23:00 Test Item Value Reference Range Interpretation Comments POTASSIUM (BEAKER) (test code = 5.4 meq/L 3.6-5.5 379) BLOOD GAS, [id number] 15:07:00 Test Item Value Reference Range Interpretation [...] code = 1819) 70.0 % SODIUM NA-STAT [id number] 15:07:00 Test Item Value Reference Range Interpretation Comments SODIUM (BEAKER) (test code = 381) 129 meq/L 135-148 L GLUCOSE-STAT [id number] 15:07:00 Test Item Value Reference Range Interpretation Comments GLUCOSE RANDOM (BEAKER) (test code 172 mg/dL 70-110 H = 652) HGB/HCT (H&H) - STAT [id number] 15:07:00 Test Item Value Reference Range Interpretation Comments HEMOGLOBIN (BEAKER) (test code = 7.1 g/dL 12.0-15.0 L 410) HEMATOCRIT (BEAKER) (test code = 21.0 % 36.0-45.0 L 411) POTASSIUM-STAT [id number] 15:04:00 Test Item Value Reference Range Interpretation Comments POTASSIUM (BEAKER) (test code = 5.0 meq/L 3.6-5.5 379) BLOOD GAS, [id number] 14:21:00 Test Item Value Reference Range Interpretation [...] code = 1819) 70.0 % SODIUM NA-STAT [id number] 14:21:00 Test Item Value Reference Range Interpretation Comments SODIUM (BEAKER) (test code = 381) 133 meq/L 135-148 L GLUCOSE-STAT [id number] 14:21:00 Test Item Value Reference Range Interpretation Comments GLUCOSE RANDOM (BEAKER) (test code 160 mg/dL 70-110 H = 652) HGB/HCT (H&H) - STAT [id number] 14:21:00 Test Item Value Reference Range Interpretation Comments HEMOGLOBIN (BEAKER) (test code = 7.5 g/dL 12.0-15.0 L 410) HEMATOCRIT (BEAKER) (test code = 22.0 % 36.0-45.0 L 411) POTASSIUM-STAT [id number] 14:20:00 Test Item Value Reference Range Interpretation Comments POTASSIUM (BEAKER) (test code = 4.7 meq/L 3.6-5.5 379) BLOOD GAS, [id number] 13:58:00 Test Item Value Reference Range Interpretation [...] code = 1819) 80.0 % SODIUM NA-STAT [id number] 13:58:00 Test Item Value Reference Range Interpretation Comments SODIUM (BEAKER) (test code = 381) 132 meq/L 135-148 L GLUCOSE-STAT [id number] 13:58:00 Test Item Value Reference Range Interpretation Comments GLUCOSE RANDOM (BEAKER) (test code 166 mg/dL 70-110 H = 652) HGB/HCT (H&H) - STAT [id number] 13:58:00 Test Item Value Reference Range Interpretation Comments HEMOGLOBIN (BEAKER) (test code = 7.5 g/dL 12.0-15.0 L 410) HEMATOCRIT (BEAKER) (test code = 22.0 % 36.0-45.0 L 411) POTASSIUM-STAT [id number] 13:57:00 Test Item Value Reference Range Interpretation Comments POTASSIUM (BEAKER) (test code = 4.7 meq/L 3.6-5.5 379) BLOOD GAS, [id number] 13:35:00 Test Item Value Reference Range Interpretation [...] (test code = 1819) 80.0 % GLUCOSE-STAT [id number] 13:35:00 Test Item Value Reference Range Interpretation Comments GLUCOSE RANDOM (BEAKER) (test code 130 mg/dL 70-110 H = 652) HGB/HCT (H&H) - STAT [id number] 13:35:00 Test Item Value Reference Range Interpretation Comments HEMOGLOBIN (BEAKER) (test code = 6.7 g/dL 12.0-15.0 L 410) HEMATOCRIT (BEAKER) (test code = 20.0 % 36.0-45.0 L 411) SODIUM NA-STAT [id number] 13:35:00 Test Item Value Reference Range Interpretation Comments SODIUM (BEAKER) (test code = 381) 133 meq/L 135-148 L POTASSIUM-STAT [id number] 13:34:00 Test Item Value Reference Range Interpretation Comments POTASSIUM (BEAKER) (test code = 4.2 meq/L 3.6-5.5 379) BLOOD GAS, [id number] 13:16:00 Test Item Value Reference Range Interpretation [...] code = 1819) 80.0 % SODIUM NA-STAT [id number] 13:16:00 Test Item Value Reference Range Interpretation Comments SODIUM (BEAKER) (test code = 381) 133 meq/L 135-148 L HGB/HCT (H&H) - STAT [id number] 13:16:00 Test Item Value Reference Range Interpretation Comments HEMOGLOBIN (BEAKER) (test code = 6.3 g/dL 12.0-15.0 L 410) HEMATOCRIT (BEAKER) (test code = 19.0 % 36.0-45.0 L 411) CALCIUM, [id number] 13:15:00 Test Item Value Reference Range Interpretation Comments CALCIUM IONIZED (BEAKER) (test 0.98 mmol/L 1.12-1.27 L code = 698) PH, BLOOD (BEAKER) (test code = 7.34 1810) BLOOD GAS, [id number] 13:15:00 Test Item Value Reference Range Interpretation [...] (test code = 1819) 80.0 % GLUCOSE-STAT [id number] 13:14:00 Test Item Value Reference Range Interpretation Comments GLUCOSE RANDOM (BEAKER) (test code = 92 mg/dL 70-110 652) POTASSIUM-STAT [id number] 13:14:00 Test Item Value Reference Range Interpretation Comments POTASSIUM (BEAKER) (test code = 3.9 meq/L 3.6-5.5 379) BLOOD GAS, [id number] 10:54:00 Test Item Value Reference Range Interpretation [...] 1819) 100.0 % HGB/HCT (H&H) - STAT [id number] 10:54:00 Test Item Value Reference Range Interpretation Comments HEMOGLOBIN (BEAKER) (test code = 9.3 g/dL 12.0-15.0 L 410) HEMATOCRIT (BEAKER) (test code = 27.0 % 36.0-45.0 L 411) SODIUM NA-STAT [id number] 10:54:00 Test Item Value Reference Range Interpretation Comments SODIUM (BEAKER) (test code = 381) 132 meq/L 135-148 L GLUCOSE-STAT [id number] 10:52:00 Test Item Value Reference Range Interpretation Comments GLUCOSE RANDOM (BEAKER) (test code = 94 mg/dL 70-110 652) POTASSIUM-STAT [id number] 10:52:00 Test Item Value Reference Range Interpretation Comments POTASSIUM (BEAKER) (test code = 4.0 meq/L 3.6-5.5 379) HEMOGLOBIN [id number] 09:50:00 Test Item Value Reference Range Interpretation Comments HEMOGLOBIN A1C (BEAKER) (test code = 10.6 % 4.3-6.1 H 368) PLATELET AGGREGATION: FUNCTION [id number] 08:27:00 Test Item Value Reference Range Interpretation Comments WEAK ADP 63 % 60-91 RESULT(BEAKER) (test code = 2135) PLATELET FUNCTION 60-100% indicates SCREEN INTERP (BEAKER) normal platelet (test code = 2173) function [id number] Toshia Post MD (BEAKER) (test code = (electronic signature) 3589) PLATELET COUNT AGG 198 K/CU MM 150-450 (BEAKER) (test code = 9319) for patients on clopidogrel in past two weeksPOCT-GLUCOSE [id number] 08:11:00 Test Item Value Reference Range Interpretation Comments POC-GLUCOSE METER 116 mg/dL 70-110 H TESTED AT [facility] 6720 (BEAKER) (test code = [place] 1538) [address] [id number] 07:10:00 Test Item Value Reference Range Interpretation Comments PHOSPHORUS (BEAKER) (test code = 4.5 mg/dL 2.3-4.7 604) [id number] 07:10:00 Test Item Value Reference Range Interpretation Comments MAGNESIUM (BEAKER) (test code = 2.1 mg/dL 1.6-2.6 627) BASIC METABOLIC [id number] 07:10:00 Test Item Value Reference Range Interpretation [...] 697) EGFR (BEAKER) (test 31 mL/min/1.73 ESTIMA MERNA GFR IS code = 1092) sq m NOT ACCURATE CREATININE CLEARANCE IN PREDICTING GLOMERULAR FILTRATION RATE . ESTIMATED GFR I S NOT APPLICABLE FOR DIALYSIS PATIEN TS. B-TYPE NATRIURETIC FACTOR (BNP)2017-05-20 06:56:00 Test Item Value Reference Range Interpretation Comments B-TYPE NATRIURETIC PEPTIDE (BEAKER) 552 pg/mL 0-100 H (test code = 700) CBC W/PLT COUNT & AUTO [id number] 06:46:00 Test Item Value Reference Range Interpretation [...] PERCENT (BEAKER) (test code = 2801) CALCIUM, [id number] 06:40:00 Test Item Value Reference Range Interpretation Comments CALCIUM IONIZED (BEAKER) (test 1.06 mmol/L 1.12-1.27 L code = 698) PH, BLOOD (BEAKER) (test code = 7.39 1810) POCT-GLUCOSE [id number] 23:22:00 Test Item Value Reference Range Interpretation Comments POC-GLUCOSE METER 165 mg/dL 70-110 H TESTED AT [facility] 6720 (BEAKER) (test code = [place] 1538) [address] URINE PROTEIN ELECTROPHORESIS, [id number] 18:02:00 Test Item Value Reference Range Interpretation Comments PROTEIN, URINE 305 mg/dL 0-14 H (BEAKER) (test code = 1569) ALBUMIN URINE ELP 70.9 % (BEAKER) (test code = 1018) GAMMA GLOBULIN URINE 29.1 % (BEAKER) (test code = 1015) UPEP, [id number] ([facility]) No monoclonal bands (test code = 2604) detected. [id number] Rocio Galindo MD ([facility]) (test code = (electronic signature) 2606) PROTEIN ELECTROPHORESIS, [id number] 17:57:00 Test Item Value Reference Range Interpretation [...] all globulin fractions. No monoclonal bands detected. [id number] Rocio Galindo MD ([facility]) (test code = (electronic signature) 8365) PROTEIN TOTAL SERUM, 5.5 gm/dL 6.0-8.3 L SPEP (BEAKER) (test code = 2020) POCT-GLUCOSE [id number] 17:15:00 Test Item Value Reference Range Interpretation Comments POC-GLUCOSE METER 209 mg/dL 70-110 H [facility] [facility] ([facility]) (test code = JULIANO Osborne [place] 1538) [address] BLOOD GAS, [id number] 15:54:00 Test Item Value Reference Range Interpretation [...] 36.0 % RAD, CHEST, 1 VIEW, NON [id number] 14:07:00Reason for exam:->SOB, hypoxemiaShould this be performed [...] Regan Cespedes Verified Date/Time: 05/19/2017 14:07:07 Reading Location:[facility] C0W Consult Reading Room POCT-GLUCOSE [id number] 11:26:00 Test Item Value Reference Range Interpretation Comments POC-GLUCOSE METER 262 mg/dL 70-110 H TESTED AT [facility] 6720 (BEAKER) (test code = JULIANO Osborne [facility] 1538) [address] POCT-GLUCOSE [id number] 07:37:00 Test Item Value Reference Range Interpretation Comments POC-GLUCOSE METER 170 mg/dL 70-110 H TESTED AT [facility] 6720 (BEAKER) (test code = JULIANO [place] 1538) [address] CALCIUM, [id number] 06:06:00 Test Item Value Reference Range Interpretation Comments CALCIUM IONIZED (BEAKER) (test 1.05 mmol/L 1.12-1.27 L code = 698) PH, BLOOD (BEAKER) (test code = 7.41 1810) [id number] 05:38:00 Test Item Value Reference Range Interpretation Comments PHOSPHORUS (BEAKER) (test code = 3.9 mg/dL 2.3-4.7 604) [id number] 05:38:00 Test Item Value Reference Range Interpretation Comments MAGNESIUM (BEAKER) (test code = 2.2 mg/dL 1.6-2.6 627) BASIC METABOLIC [id number] 05:38:00 Test Item Value Reference Range Interpretation [...] 697) EGFR (BEAKER) (test 30 mL/min/1.73 ESTIMA MERNA GFR IS code = 1092) sq m NOT ACCURATE CREATININE CLEARANCE IN PREDICTING GLOMERULAR FILTRATION RATE . ESTIMATED GFR I S NOT APPLICABLE FOR DIALYSIS PATIEN TS. CBC W/PLT COUNT & AUTO [id number] 05:09:00 Test Item Value Reference Range Interpretation [...] PERCENT (BEAKER) (test code = 2801) POCT-GLUCOSE [id number] 22:08:00 Test Item Value Reference Range Interpretation Comments POC-GLUCOSE METER 263 mg/dL 70-110 H TESTED AT [facility] 6720 (BEAKER) (test code = JULIANO Osborne [facility] 1538) [address] POCT-GLUCOSE [id number] 17:20:00 Test Item Value Reference Range Interpretation Comments POC-GLUCOSE METER 233 mg/dL 70-110 H TESTED AT [place] [address] (BEAKER) (test code = JULIANO Osborne [facility] 1538) [address] POCT-GLUCOSE [id number] 08:28:00 Test Item Value Reference Range Interpretation Comments POC-GLUCOSE METER 154 mg/dL 70-110 H TESTED AT [place] [address] (BEAKER) (test code = JULIANO Osborne [facility] 1538) [address] BASIC METABOLIC [id number] 06:41:00 Test Item Value Reference Range Interpretation [...] 697) EGFR (BEAKER) (test 29 mL/min/1.73 ESTIMA MERNA GFR IS code = 1092) sq m NOT ACCURATE CREATININE CLEARANCE IN PREDICTING GLOMERULAR FILTRATION RATE . ESTIMATED GFR I S NOT APPLICABLE FOR DIALYSIS PATIEN TS. [id number] 06:35:00 Test Item Value Reference Range Interpretation Comments PHOSPHORUS (BEAKER) (test code = 4.1 mg/dL 2.3-4.7 604) [id number] 06:35:00 Test Item Value Reference Range Interpretation Comments MAGNESIUM (BEAKER) (test code = 2.1 mg/dL 1.6-2.6 627) CALCIUM, [id number] 06:22:00 Test Item Value Reference Range Interpretation Comments CALCIUM IONIZED (BEAKER) (test 1.10 mmol/L 1.12-1.27 L code = 698) PH, BLOOD (BEAKER) (test code = 7.38 1810) CBC W/PLT COUNT & AUTO [id number] 06:04:00 Test Item Value Reference Range Interpretation [...] EOSINOPHILS ABSOLUTE COUNT 0.24 K/ L 0.04-0.36 ([facility]) (test code = 416) BASOPHILS ABSOLUTE COUNT ([facility]) 0.06 K/ L 0.01-0.08 (test code = 417) IMMATURE GRANULOCYTES-RELATIVE 0 % 0-1 PERCENT ([facility]) (test code = 2801) POCT-GLUCOSE [id number] 03:44:00 Test Item Value Reference Range Interpretation Comments POC-GLUCOSE METER 220 mg/dL 70-110 H TESTED AT [place] [address] ([facility]) (test code = [employer] [place] 1538) [address] POCT-GLUCOSE [id number] 18:27:00 Test Item Value Reference Range Interpretation Comments POC-GLUCOSE METER 256 mg/dL 70-110 H TESTED AT [place] [address] ([facility]) (test code = [employer] [place] 1538) [address] POCT-GLUCOSE [id number] 15:45:00 Test Item Value Reference Range Interpretation Comments POC-GLUCOSE METER 278 mg/dL 70-110 H TESTED AT [place] [address] ([facility]) (test code = [employer] [place] 1538) [address] POCT-GLUCOSE [id number] 13:22:00 Test Item Value Reference Range Interpretation Comments POC-GLUCOSE METER 278 mg/dL 70-110 H TESTED AT [place] [address] ([facility]) (test code = [employer] [place] 1538) [address] PLATELET AGGREGATION: FUNCTION [id number] 13:18:00 Test Item Value Reference Range Interpretation Comments WEAK ADP 66 % 60-91 RESULT([facility]) (test code = 2135) PLATELET FUNCTION 60-100% indicates SCREEN INTERP ([facility]) normal platelet (test code = 2173) function [id number] Rigoberto Duenas MD ([facility]) (test code = (electronic signature) 6378) PLATELET COUNT AGG 204 K/CU MM 150-450 ([facility]) (test code = 2656) POCT-GLUCOSE [id number] 08:27:00 Test Item Value Reference Range Interpretation Comments POC-GLUCOSE METER 189 mg/dL 70-110 H TESTED AT [place] [address] ([facility]) (test code = BERTNE Dylon [place] 1538) [address] CALCIUM, [id number] 06:12:00 Test Item Value Reference Range Interpretation Comments CALCIUM IONIZED (BEAKER) (test 1.07 mmol/L 1.12-1.27 L code = 698) PH, BLOOD (BEAKER) (test code = 7.36 1810) [id number] 05:43:00 Test Item Value Reference Range Interpretation Comments PHOSPHORUS (BEAKER) (test code = 3.6 mg/dL 2.3-4.7 604) [id number] 05:43:00 Test Item Value Reference Range Interpretation Comments MAGNESIUM (BEAKER) (test code = 2.1 mg/dL 1.6-2.6 627) BASIC METABOLIC [id number] 05:43:00 Test Item Value Reference Range Interpretation [...] 697) EGFR (BEAKER) (test 30 mL/min/1.73 ESTIMA MERNA GFR IS code = 1092) sq m NOT ACCURATE CREATININE CLEARANCE IN PREDICTING GLOMERULAR FILTRATION RATE . ESTIMATED GFR I S NOT APPLICABLE FOR DIALYSIS PATIEN TS. CBC W/PLT COUNT & AUTO [id number] 05:05:00 Test Item Value Reference Range Interpretation [...] PERCENT (BEAKER) (test code = 2801) POCT-GLUCOSE [id number] 21:32:00 Test Item Value Reference Range Interpretation Comments POC-GLUCOSE METER 176 mg/dL 70-110 H TESTED AT [facility] 6720 (BEAKER) (test code = JULIANO Osborne [facility] 1538) [address] POCT-GLUCOSE [id number] 20:27:00 Test Item Value Reference Range Interpretation Comments POC-GLUCOSE METER 161 mg/dL 70-110 H TESTED AT [place] [address] ([facility]) (test code = JULIANO Osborne [facility] 1538) [address] POCT-GLUCOSE [id number] 18:23:00 Test Item Value Reference Range Interpretation Comments POC-GLUCOSE METER 185 mg/dL 70-110 H TESTED AT [place] [address] ([facility]) (test code = [facility] Dylon [facility] 1538) [address] POCT-GLUCOSE [id number] 13:26:00 Test Item Value Reference Range Interpretation Comments POC-GLUCOSE METER 282 mg/dL 70-110 H TESTED AT [place] [address] ([facility]) (test code = [facility] Dylon [facility] 1538) [address] URINE [id number] 10:12:00 Test Item Value Reference Range Interpretation Comments CULTURE (BEAKER) (test >100,000 col/mL skin code = 1095) todd POCT-GLUCOSE [id number] 09:01:00 Test Item Value Reference Range Interpretation Comments POC-GLUCOSE METER 268 mg/dL 70-110 H TESTED AT [place] [address] ([facility]) (test code = [facility] 1538) [address] CALCIUM, [id number] 05:39:00 Test Item Value Reference Range Interpretation Comments CALCIUM IONIZED (BEAKER) (test 0.84 mmol/L 1.12-1.27 L code = 698) PH, BLOOD (BEAKER) (test code = 7.35 9900) BASIC METABOLIC [id number] 05:07:00 Test Item Value Reference Range Interpretation [...] 697) EGFR (BEAKER) (test 25 mL/min/1.73 ESTIMA MERNA GFR IS code = 1092) sq m NOT ACCURATE CREATININE CLEARANCE IN PREDICTING GLOMERULAR FILTRATION RATE . ESTIMATED GFR I S NOT APPLICABLE FOR DIALYSIS PATIEN TS. [id number] 05:06:00 Test Item Value Reference Range Interpretation Comments PHOSPHORUS (BEAKER) (test code = 3.2 mg/dL 2.3-4.7 604) [id number] 05:06:00 Test Item Value Reference Range Interpretation Comments MAGNESIUM (BEAKER) (test code = 2.3 mg/dL 1.6-2.6 627) CBC W/PLT COUNT & AUTO [id number] 04:42:00 Test Item Value Reference Range Interpretation [...] = 2801) RHEUMATOID FACTOR AB, REFLEX TO [id number] 01:52:00 Test Item Value Reference Range Interpretation Comments RHEUMATOID FACTOR (ROBERT) (test Negative code = 573) POCT-GLUCOSE [id number] 21:57:00 Test Item Value Reference Range Interpretation Comments POC-GLUCOSE METER 105 mg/dL 70-110 TESTED AT [facility] 67 (ROBERT) (test code = JULIANO Osborne [place] [address]) [address] POCT-GLUCOSE [id number] 18:11:00 Test Item Value Reference Range Interpretation Comments POC-GLUCOSE METER 312 mg/dL 70-110 H Notified Dylon Austin MD/TESTED (ROBERT) (test code = AT [facility] [address] [place] [address]) [facility] 7703 0 PET, CARDIAC PERFUSION MULTIPLE STUDIES, REST AND [id number] 16:28:00 Reason for exam:->pvcs, known cadFINAL REPORT PROCEDURE: Rest/Stress MYOCARDIAL PERFUSION PET with regadenoson\\XA9\\ CPT CODE: 55172 INDICATION: Defined extent and severity of known [...] is 23%. LVEF at stress is 36%. 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 7. No previous [facility] study for comparison. NONINVASIVE RISK STRATIFICATION: The above findings are considered high risk (>3% annual mortality rate) based on the following criteria: - Severe resting left ventricular dysfunction (LVEF 35%)- Stress-induced large perfusion defect (particularly if anterior)(JACC. 2012;59(9):857-81.) Signed: Natan Whaley Verified Date/Time: 05/15/2017 16:28:12 Reading Location: [address] [facility] ReadingRoom RAD, CHEST, 1 VIEW, NON [id number] 15:56:00Reason for exam:->SOBShould this be performed at the bedside?->YesFINAL REPORT Comparison: 05/14/2017 TECHNIQUE: Single view of the chest FINDINGS: There is a small right pleural effusion with nonspecific airspace disease. This is unchanged. Left lung is grossly clear. Cardiac silhouette is enlarged. IMPRESSION: 1. No acute cardiopulmonary disease. Signed: Sixto Monk MDReport Verified Date/Time: 05/15/2017 15:56:39 Reading Location: [facility] iology Reading Room POCT-GLUCOSE [id number] 12:54:00 Test Item Value Reference Range Interpretation Comments POC-GLUCOSE METER 308 mg/dL 70-110 H Notified Dylon Austin MD/NATHAN (ROBERT) (test code = AT [facility] 6720 [facility] 1538) [facility] 7703 0 U/S, RENAL WITH [id number] 11:04:00Reason for exam:->tracy, htnShould this be performed [...] in the resistive indices throughout. Signed: Anahi Hobbsepsaint [facility] Verified Date/Time: 05/15/2017 11:04:01 Reading Location: [address] Ultrasound Reading Room ANA TITER AND [id number] 10:57:00 Test Item Value Reference Range Interpretation Comments ROGER TITER (BEAKER) (test code = :160 1541) ROGER PATTERN (BEAKER) (test code = [place] 1781) ANTI-NUCLEAR ANTIBODY (ROGER)2017-05-15 10:56:00 Test Item Value Reference Range Interpretation Comments ANTI-NUCLEAR ANTIBODY (ROGER) (BEAKER) Positive Negative A (test code = 418) CALCIUM, [id number] 06:00:00 Test Item Value Reference Range Interpretation Comments CALCIUM IONIZED (BEAKER) (test 1.07 mmol/L 1.12-1.27 L code = 698) PH, BLOOD (BEAKER) (test code = 7.28 1810) HEPATITIS PANEL, [id number] 05:01:00 Test Item Value Reference Range Interpretation Comments HEPATITIS A IGM ANTIBODY (BEAKER) Nonreactive Nonreactive (test code = 498) HEPATITIS B CORE IGM ANTIBODY Nonreactive Nonreactive (BEAKER) (test code = 645) HEPATITIS C ANTIBODY (BEAKER) Nonreactive Nonreactive (test code = 367) HEPATITIS B SURFACE ANTIGEN (2) Nonreactive Nonreactive (BEAKER) (test code = 2585) BASIC METABOLIC [id number] 04:48:00 Test Item Value Reference Range Interpretation [...] 697) EGFR (BEAKER) (test 18 mL/min/1.73 ESTIMA MERNA GFR IS code = 1092) sq m NOT ACCURATE CREATININE CLEARANCE IN PREDICTING GLOMERULAR FILTRATION RATE . ESTIMATED GFR I S NOT APPLICABLE FOR DIALYSIS PATIEN TS. URIC [id number] 04:41:00 Test Item Value Reference Range Interpretation Comments URIC ACID (BEAKER) (test code = 10.3 mg/dL 2.6-7.2 H 773) [id number] 04:41:00 Test Item Value Reference Range Interpretation Comments MAGNESIUM (BEAKER) (test code = 2.0 mg/dL 1.6-2.6 627) [id number] 04:41:00 Test Item Value Reference Range Interpretation Comments PHOSPHORUS (BEAKER) (test code = 4.2 mg/dL 2.3-4.7 604) COMPLEMENT COMPONENT [id number] 04:38:00 Test Item Value Reference Range Interpretation Comments C4 COMPLEMENT (BEAKER) (test code = 28 mg/dL 15-57 394) COMPLEMENT COMPONENT [id number] 04:38:00 Test Item Value Reference Range Interpretation Comments C3 COMPLEMENT (BEAKER) (test code = 103 mg/dL 82-193 393) CBC W/PLT COUNT & AUTO [id number] 04:22:00 Test Item Value Reference Range Interpretation [...] EOSINOPHILS ABSOLUTE COUNT 0.21 K/ L 0.04-0.36 ([facility]) (test code = 416) BASOPHILS ABSOLUTE COUNT ([facility]) 0.06 K/ L 0.01-0.08 (test code = 417) IMMATURE GRANULOCYTES-RELATIVE 0 % 0-1 PERCENT ([facility]) (test code = 2801) POCT-GLUCOSE [id number] 21:46:00 Test Item Value Reference Range Interpretation Comments POC-GLUCOSE METER 173 mg/dL 70-110 H TESTED AT [place] [address] ([facility]) ([facility] = [facility] 1538) [address] POCT-GLUCOSE [id number] 21:46:00 Test Item Value Reference Range Interpretation Comments POC-GLUCOSE METER 154 mg/dL 70-110 H TESTED AT [place] [address] ([facility]) (test code = [facility] Dylon [facility] 1538) [address] POCT-GLUCOSE [id number] 18:17:00 Test Item Value Reference Range Interpretation Comments POC-GLUCOSE METER 175 mg/dL 70-110 H TESTED AT [place] [address] ([facility]) (test code = [facility] 1538) [address] RAD, CHEST, 1 VIEW, NON [id number] 14:56:00Reason for exam:->SOBShould this be performed at the bedside?->YesFINAL REPORT INDICATION: SOB COMPARISON: May 13, 2017 TECHNIQUE: Chest radiograph, single view, portable technique. FINDINGS / IMPRESSION: Enlarged heart shadow, small rightpleural effusion, and pulmonary venous congestion, again demonstrated. No pneumothorax or consolidation. Osseous structures unremarkable. Signed: Thania Dwyer MDReport Verified Date/Time: 05/14/2017 14:56:58 Reading Location: [facility] Mammo Reading Room POCT-GLUCOSE [id number] 12:18:00 Test Item Value Reference Range Interpretation Comments POC-GLUCOSE METER 313 mg/dL 70-110 H TESTED AT [place] [address] ([facility]) (test code = [facility] 1538) [address] HIV-1 ANTIGEN WITH HIV-1/2 [id number] 12:07:00 Test Item Value Reference Range Interpretation Comments HIV-1 ANTIGEN WITH HIV 1\\T\\2 Nonreactive Nonreactive ANTIBODY (2) (BEAKER) (test code = 2586) CALCIUM, [id number] 06:37:00 Test Item Value Reference Range Interpretation Comments CALCIUM IONIZED (BEAKER) (test 1.08 mmol/L 1.12-1.27 L code = 698) PH, BLOOD (BEAKER) (test code = 7.25 1810) BASIC METABOLIC [id number] 06:26:00 Test Item Value Reference Range Interpretation [...] 697) EGFR (BEAKER) (test 16 mL/min/1.73 ESTIMA MERNA GFR IS code = 1092) sq m NOT ACCURATE CREATININE CLEARANCE IN PREDICTING GLOMERULAR FILTRATION RATE . ESTIMATED GFR I S NOT APPLICABLE FOR DIALYSIS PATIEN TS. B-TYPE NATRIURETIC FACTOR (BNP)2017-05-14 06:26:00 Test Item Value Reference Range Interpretation Comments B-TYPE NATRIURETIC PEPTIDE (BEAKER) 474 pg/mL 0-100 H (test code = 700) [id number] 06:25:00 Test Item Value Reference Range Interpretation Comments PHOSPHORUS (BEAKER) (test code = 5.7 mg/dL 2.3-4.7 H 604) [id number] 06:25:00 Test Item Value Reference Range Interpretation Comments MAGNESIUM (BEAKER) (test code = 1.5 mg/dL 1.6-2.6 L 627) CBC W/PLT COUNT & AUTO [id number] 06:07:00 Test Item Value Reference Range Interpretation [...] PERCENT (BEAKER) (test code = 2801) POCT-GLUCOSE [id number] 22:38:00 Test Item Value Reference Range Interpretation Comments POC-GLUCOSE METER 262 mg/dL 70-110 H TESTED AT [facility] 6720 (BEAKER) (test code = JULIANO [place] 1538) [address] PROTEIN, RANDOM [id number] 22:18:00 Test Item Value Reference Range Interpretation Comments PROTEIN, URINE (BEAKER) (test code 641 mg/dL 0-14 H = 1569) CREATININE, RANDOM [id number] 22:07:00 Test Item Value Reference Range Interpretation Comments CREATININE URINE (BEAKER) (test 124.9 mg/dL code = 375) Reference Range: No NormalsURINALYSIS W/ [id number] 22:03:00 Test Item Value Reference Range Interpretation [...] 1585) SOURCE(BEAKER) (test code = Urine, Voided 2426) [id number] 19:49:00 Test Item Value Reference Range Interpretation Comments SODIUM (BEAKER) (test 136 meq/L 136-145 code = 381) POTASSIUM (BEAKER) 5.1 meq/L 3.5-5.1 Specimen slightly (test code = 379) hemolyzed CHLORIDE (BEAKER) 104 meq/L 98-107 (test code = 382) CO2 (BEAKER) (test 25 meq/L 22-29 code = 355) Call if K > 5POCT-GLUCOSE [id number] 11:37:00 Test Item Value Reference Range Interpretation Comments POC-GLUCOSE METER 293 mg/dL 70-110 H TESTED AT [place] [address] ([facility]) (test code = JULIANO Osborne [facility] 1538) [address] RAD, CHEST, 1 VIEW, NON [id number] 10:22:00Reason for exam:->SOBShould this be performed at the bedside?->YesFINAL REPORT Chest one view Discussion: There is cardiomegaly and interstitial congestion. A small right-sided effusion is noted. No pneumothorax. IMPRESSIONS: Suspected CHF. Signed: Jeannette Nava Verified Date/Time: 05/13/2017 10:22:34 Reading Location: [facility] Radiology Reading Room POCT-GLUCOSE METER 2017-05-13 08:34:00 Test Item Value Reference Range Interpretation Comments POC-GLUCOSE METER 178 mg/dL 70-110 H TESTED AT [facility] 67 ([facility]) (test code = JULIANO Osborne [facility] 1538) [address] POCT-GLUCOSE [id number] 06:53:00 Test Item Value Reference Range Interpretation Comments POC-GLUCOSE METER 167 mg/dL 70-110 H TESTED AT [facility] 6720 (BEAKER) (test code = JULIANO Osborne [facility] 1538) [address] [id number] 04:48:00 Test Item Value Reference Range Interpretation Comments BLOOD UREA NITROGEN (BEAKER) (test 36 mg/dL 7-21 H code = 354) [id number] 04:48:00 Test Item Value Reference Range Interpretation Comments SODIUM (BEAKER) (test code = 381) 139 meq/L 136-145 POTASSIUM (BEAKER) (test code = 5.2 meq/L 3.5-5.1 H 379) CHLORIDE (BEAKER) (test code = 382) 109 meq/L 98-107 H CO2 (BEAKER) (test code = 355) 23 meq/L 22-29 [id number] 04:48:00 Test Item Value Reference Range Interpretation Comments CREATININE (BEAKER) 1.73 mg/dL 0.57-1.25 H (test code = 358) EGFR (BEAKER) (test 30 mL/min/1.73 ESTIMA MERNA GFR IS code = 1092) sq m [...] WBC 0-0 (BEAKER) (test code = 413) [id number] 23:29:00 Test Item Value Reference Range Interpretation Comments ACTIVATED CLOTTING TIME 136 sec TEST ED AT [place] [address] (BEAKER) (test code = [place]IANO [place] 441) [address] [id number] 20:13:00 Test Item Value Reference Range Interpretation Comments ACTIVATED CLOTTING TIME 175 sec TEST ED AT [place] [address] (BEAKER) (test code = JULIANO Osborne [place] 441) [address] [id number] 18:36:00 Test Item Value Reference Range Interpretation Comments ACTIVATED CLOTTING TIME 202 sec TEST ED AT [place] [address] (BEAKER) (test code = JULIANO Osborne [place] 441) [address] [id number] 18:03:00 Test Item Value Reference Range Interpretation Comments ACTIVATED CLOTTING TIME 208 sec TEST ED AT [place] [address] (BEAKER) (test code = UJLIANO Osborne [place] 441) [address] BASIC METABOLIC [id number] 11:57:00 Test Item Value Reference Range Interpretation [...] 697) EGFR (BEAKER) (test 33 mL/min/1.73 ESTIMA MERNA GFR IS code = 1092) sq m NOT ACCURATE CREATININE CLEARANCE IN PREDICTING GLOMERULAR FILTRATION RATE . ESTIMATED GFR I S NOT APPLICABLE FOR DIALYSIS PATIEN TS. PROTHROMBIN [id number] 11:15:00 Test Item Value Reference Range Interpretation [...] if on CoumadinCBC W/PLT COUNT & AUTO [id number] 11:01:00 Test Item Value Reference Range Interpretation [...] PERCENT (BEAKER) (test code = 2801) POCT-GLUCOSE [id number] 12:35:00 Test Item Value Reference Range Interpretation Comments POC-GLUCOSE METER 249 mg/dL 70-110 H TESTED AT [facility] 67 ([facility]) (test [facility] = [facility] 1538) [address] POCT-GLUCOSE [id number] 09:10:00 Test Item Value Reference Range Interpretation Comments POC-GLUCOSE METER 155 mg/dL 70-110 H TESTED AT [place] [address] ([facility]) (test code = [facility] Dylon [facility] 1538) [address] BASIC METABOLIC [id number] 05:39:00 Test Item Value Reference Range Interpretation [...] 697) EGFR (BEAKER) (test 29 mL/min/1.73 ESTIMA MERNA GFR IS code = 1092) sq m NOT ACCURATE CREATININE CLEARANCE IN PREDICTING GLOMERULAR FILTRATION RATE . ESTIMATED GFR I S NOT APPLICABLE FOR DIALYSIS PATIEN TS. [id number] 05:27:00 Test Item Value Reference Range Interpretation Comments PHOSPHORUS ([facility]) (test code = 5.0 mg/dL 2.3-4.7 H 604) [id number] 05:27:00 Test Item Value Reference Range Interpretation Comments MAGNESIUM ([facility]) (test code = 1.6 mg/dL 1.6-2.6 627) POCT-GLUCOSE [id number] 05:25:00 Test Item Value Reference Range Interpretation Comments POC-GLUCOSE METER 144 mg/dL 70-110 H TESTED AT [place] [address] ([facility]) (test code = [facility] 1538) [id number] PROTHROMBIN [id number] 04:58:00 Test Item Value Reference Range Interpretation Comments PROTIME ([facility]) (test code = 14.2 seconds 11.7-14.7 759) INR ([facility]) (test code = 370) 1.1 <=5.9 RECOMMENDED COUMADIN/WARFARIN INR THERAPY RANGESSTANDARD DOSE: 2.0 - 3.0 Includes: PROPHYLAXIS forvenous thrombosis, systemic embolization; TREATMENT for venous thrombosis and/or pulmonary embolus.HIGH RISK: Target INR is 2.5-3.5 for patients with mechanical heart valves.POCT-GLUCOSE [id number] 23:55:00 Test Item Value Reference Range Interpretation Comments POC-GLUCOSE METER 86 mg/dL 70-110 TESTED AT [place] [address] ([facility]) (test code = [facility] [id number] 1538) B-TYPE NATRIURETIC FACTOR (BNP)2017-04-22 18:13:00 Test Item Value Reference Range Interpretation Comments B-TYPE NATRIURETIC PEPTIDE 1203 pg/mL 0-100 H ([facility]) (test code = 700) POCT-GLUCOSE [id number] 17:36:00 Test Item Value Reference Range Interpretation Comments POC-GLUCOSE METER 259 mg/dL 70-110 H TESTED AT [place] [address] ([facility]) (test code = [facility] 1538) [id number] HEMOGLOBIN [id number] 14:24:00 Test Item Value Reference Range Interpretation Comments HEMOGLOBIN A1C ([facility]) (test code = 10.5 % 4.3-6.1 H 368) POCT-GLUCOSE [id number] 12:34:00 Test Item Value Reference Range Interpretation Comments POC-GLUCOSE METER 207 mg/dL 70-110 H TESTED AT [facility] 6720 (BEAKER) (test code = [place] 1538) [id number] 07:53:00 Test Item Value Reference Range Interpretation Comments PHOSPHORUS (BEAKER) (test code = 3.9 mg/dL 2.3-4.7 604) [id number] 07:53:00 Test Item Value Reference Range Interpretation Comments MAGNESIUM (BEAKER) (test code = 1.6 mg/dL 1.6-2.6 627) BASIC METABOLIC [id number] 07:53:00 Test Item Value Reference Range Interpretation [...] 697) EGFR (BEAKER) (test 34 mL/min/1.73 ESTIMA MERNA GFR IS code = 1092) sq m NOT ACCURATE CREATININE CLEARANCE IN PREDICTING GLOMERULAR FILTRATION RATE . ESTIMATED GFR I S NOT APPLICABLE FOR DIALYSIS PATIEN TS. TROPONIN [id number] 07:29:00 Test Item Value Reference Range Interpretation [...] acidosis, acute neurological disease, and persistent tachyarrhythmia.PROTHROMBIN [id number] 07:01:00 Test Item Value Reference Range Interpretation Comments PROTIME ([facility]) (test code = 13.8 seconds 11.7-14.7 759) INR ([facility]) (test code = 370) 1.1 <=5.9 RECOMMENDED COUMADIN/WARFARIN INR THERAPY RANGESSTANDARD DOSE: 2.0 - 3.0 Includes: PROPHYLAXIS forvenous thrombosis, systemic embolization; TREATMENT for venous thrombosis and/or pulmonary embolus.HIGH RISK: Target INR is 2.5-3.5 for patients with mechanical heart valves.POCT-GLUCOSE [id number] 06:28:00 Test Item Value Reference Range Interpretation Comments POC-GLUCOSE METER 198 mg/dL 70-110 H TESTED AT [place] [address] ([facility]) (test code = JULIANO [place]YE[place] 1538) [id number] CREATINE KINASE (CK), TOTAL AND [id number] 00:49:00 Test Item Value Reference Range Interpretation Comments CREATINE KINASE TOTAL ([facility]) 69 U/L 29-200 (test code = 380) CREATINE KINASE-MB ([facility]) (test 4.3 ng/mL 0.0-6.6 code = 750) CREATINE KINASE-MB INDEX ([facility]) 6.2 % (test code = 395) CK-MB Reference Range:<6.7 Normal6.7-10.0 Borderline>10.0 AbnormalTROPONIN [id number] 00:49:00 Test Item Value Reference Range Interpretation Comments TROPONIN I ([facility]) (test code = 0.05 ng/mL [...] acidosis, acute neurological disease, and persistent tachyarrhythmia.POCT-GLUCOSE [id number] 20:44:00 Test Item Value Reference Range Interpretation Comments POC-GLUCOSE METER 269 mg/dL 70-110 H TESTED AT [place] [address] [place]) (test code = [place] 1537) [id number]
[2020-06-13 13:20] LABS: Absolute Lymphocytes (CBC) 1.9 K/uL (0.7-4.9); Basophils % 0.2 % (0-1.3); Hematocrit 33.3 % (36.0-45.0); Lymphocytes % 26.1 % (15.3-44.8); MPV 6.8 fL (7.6-11.3); RBC Red Blood Cell Count 3.86 M/uL (3.86-4.86)
--- NOTE | 2020-06-13 14:11 | RAD REPORT ---
EXAM DESCRIPTION: RAD - Chest Single View - 06/13/2020 2:04 pm CLINICAL HISTORY: SWELLING Chest pain. COMPARISON: Chest Single View dated 04/26/2020; Chest Single View dated 03/09/2020; Chest Single View dated 02/27/2020; Chest Single View dated 01/23/2020 FINDINGS: Portable technique limits examination quality. Prominent right basilar lung opacity is seen, relatively chronic in this patient. It is likely a comb ination chronic effusion and atelectasis. Mild interstitial pulmonary edema noted. The heart is moder ately enlarged in size with sternotomy wires present. Left-sided venous catheter tip in SVC. IMPRESSION: Mild to moderate CHF.
--- NOTE | 2020-06-13 14:11 | RAD REPORT ---
EXAM DESCRIPTION: RAD - Sacrum And Coccyx - 06/13/2020 2:04 pm CLINICAL HISTORY: PAIN Fall, pain COMPARISON: <Comparisons> FINDINGS: The bones are demineralized. No gross fracture appreciated.
[2020-06-13 14:18] LABS: Protime INR 1.18
[2020-06-13] MEDS ORDERED: FENTANYL CITR 100 MCG/2 ML ONE (14:40)
[2020-06-13] MEDS ORDERED: FUROSEMIDE 20 MG/ 2ML VIAL ONE (14:41)
[2020-06-13 14:55] LABS: Albumin 2.6 g/dL (3.4-5.0); Bilirubin Direct 0.1 mg/dL (0-0.2); Bilirubin Total 0.3 mg/dL (0.2-1.0); Magnesium 1.9 mg/dL (1.8-2.4); Potassium 4.3 mmol/L (3.5-5.1); Protein, Total 7.7 g/dL (6.4-8.2); Troponin (Emerg Dept Use Only) 0.05 ng/mL (0.0-0.045)
--- NOTE | 2020-06-13 15:14 | ER ---
Nurse's Notes [facility] Name: Christy Priest Age: 65 yrs Sex: Female : 1955 Arrival Date: 06/13/2020 Time: 12:45 Bed 5 Private MD: Diagnosis: Acute on chronic combined systolic (congestive) and diastolic (congestive) heart failure Presentation: 06/13 12:50 Chief complaint: Patient states: SOB and CP for 3 days. Unable to breathe well laying ll1 flat. States she fell yesterday onto her buttocks. States there is a abrasion on her buttocks that was bleeding after her fall. Coronavirus screen: Client denies travel out of the [place] in the last 14 days. congestion, cough unrelated to allergies, difficulty breathing, shortness of breath, Client presents with at least one sign or symptom that may indicate coronavirus-19. Standard/surgical mask placed on the client. Ebola Screen: Patient denies travel to an Ebola-affected area in the 21 days before illness onset. Initial Sepsis Screen: Does the patient meet any 2 criteria? No. Patient's initial sepsis screen is negative. Does the patient have a suspected source of infection? Yes: Productive cough/pneumonia. Risk Assessment: Do you want to hurt yourself or someone else? Patient reports no desire to harm self or others. Onset of symptoms was June 11, 2020. 12:50 Method Of Arrival: EMS: [facility] ll1 12:50 Acuity: DENNY 3 ll1 Historical: - Allergies: 12:52 Augmentin; ll1 12:52 basil; ll1 12:52 Clindamycin; ll1 12:52 Morphine; ll1 12:52 Nitroglycerin; ll1 12:52 Tramadol HCl; ll1 12:52 Trazodone; ll1 12:52 Vancomycin; ll1 12:52 Vicodin; ll1 - PMHx: 12:52 ADD/ADHD; CHF; COPD; Diabetes - IDDM; ESRD; High Cholesterol; Hypertension; triple ll1 bypass; uterine cancer; - Immunization history:: Pneumococcal vaccine is up to date, Flu vaccine is up to date. - Social history:: Smoking status: Patient reports the use of cigarette tobacco products, denies chronic smoking, but will smoke occasionally. Screenin:03 Abuse screen: Denies threats or abuse. Nutritional screening: No deficits noted. tw2 Tuberculosis screening: No symptoms or risk factors identified. Fall Risk Secondary diagnosis (15 points) impaired mobility. Assessment: 13:12 General: Appears in no apparent distress. Behavior is calm, cooperative, appropriate tw2 for age. Pain: Complains of pain in buttocks. Neuro: Level of Consciousness is obeys commands, pt sitting upright in bed, appears asleep, drowsy when name called but arousable by name. Oriented to person, place, situation. Cardiovascular: Patient's skin is warm and dry. Dialysis shunt: in the left arm. Respiratory: Reports shortness of breath at rest on exertion Airway is patent Respiratory effort is even, unlabored, Respiratory pattern is regular, symmetrical, Breath sounds are diminished. GI: Abdomen is round Reports bloating. : No signs and/or symptoms were reported regarding the genitourinary system. Derm: Skin is fragile, is thin, with poor turgor Skin is dry, Skin is jaundiced, Skin temperature is warm. Musculoskeletal: Range of motion: intact in all extremities. 15:30 Reassessment: Patient appears in no apparent distress at this time. No changes from tw2 previously documented assessment. Patient and/or family updated on plan of care and expected duration. Pain level reassessed. 16:30 Reassessment: Patient appears in no apparent distress at this time. No changes from tw2 previously documented assessment. Patient and/or family updated on plan of care and expected duration. Pain level reassessed. 17:39 Reassessment: Patient appears in no apparent distress at this time. No changes from tw2 previously documented assessment. Patient and/or family updated on plan of care and expected duration. Pain level reassessed. Vital Signs: 12:48 BP 145 / 75; Pulse 70; Resp 18; Temp 98.8(O); Pulse Ox 100% on R/A; tw2 14:17 BP 152 / 83; Pulse 72; Resp 17; Pulse Ox 100% on R/A; tw2 15:20 BP 153 / 78; Pulse 73; Resp 17; Pulse Ox 100% on R/A; tw2 16:20 BP 150 / 86; Pulse 73; Resp 17; Pulse Ox 100% on R/A; tw2 17:38 BP 157 / 86; Pulse 72; Resp 17; Pulse Ox 100% on R/A; tw2 ED Course: 12:45 Patient arrived in ED. ds1 12:45 Bed in low position. Side rails up X2. hall monitor on. Pulse ox on. NIBP on. tw2 12:50 Mallory Wilson FNP-C [facility]. kb 12:50 Mika Lopez MD is Attending Physician. kb 12:51 Triage completed. ll1 12:52 Arm band placed on Patient placed in an exam room, on a stretcher. ll1 13:02 Hannah Coker, RN is Primary Nurse. tw2 13:12 Inserted saline lock: 20 gauge in right wrist, using aseptic technique. Blood collected.tw2 14:00 CBC with Diff Sent. sv 14:00 Basic Metabolic Panel Sent. sv 14:04 XRAY Chest (1 view) In Process Unspecified. EDMS 14:04 Sacrum And Coccyx XRAY In Process Unspecified. EDMS 15:13 Oleksandr Nettles MD is Hospitalizing Provider. kb 18:04 Report given to GUILHERME Brothers. tw2 18:41 No provider procedures requiring assistance completed. Patient admitted, IV remains in jl7 place. intact, No redness/swelling at site. Administered Medications: 14:30 Drug: fentaNYL (PF) 25 mcg {Note: rass 0.} Route: IVP; Site: right wrist; tw2 15:30 Follow up: Response: No adverse reaction; Pain is decreased; RASS: Alert and Calm (0) tw2 14:31 Drug: Lasix 20 mg Route: IVP; Site: right wrist; tw2 15:30 Follow up: Response: No adverse reaction tw2 Outcome: 15:13 Decision to Hospitalize by Provider. kb 18:41 Admitted to Med/surg accompanied by tech, via stretcher, room 213, with chart. jl7 18:41 Condition: stable 18:41 Discharge instructions given to patient, Instructed on the need for admit, Demonstrated understanding of instructions. 18:43 Patient left the ED. jl7 Signatures: Dispatcher [employer] EDMS Mallory Wilson FNP-C FNP-Ckb Verde, Stephanie RN RN Glenys Davis ds1 Hannah Coker RN RN tw2 Jl Wadsworth RN RN jl7 Gustabo Montalvo RN RN ll1
--- NOTE | 2020-06-13 15:14 | EDPHYS ---
Physician Documentation [facility] Name: Christy Priest Age: 65 yrs Sex: Female : 1955 Arrival Date: 06/13/2020 Time: 12:45 Bed 5 Private MD: ED Physician Mika Lopez HPI: 06/13 15:11 This 65 yrs old Female presents to ER via EMS with complaints of Breathing kb Difficulty. 15:11 The patient has shortness of breath at rest, and the patient has a history of CHF. kb Onset: The symptoms/episode began/occurred 3 day(s) ago. Duration: The symptoms are continuous. The patient's shortness of breath is aggravated by exertion, light activity, supine position, is alleviated by nothing. Associated signs and symptoms: Pertinent positives: chest pain. Severity of symptoms: At their worst the symptoms were moderate in the emergency department the symptoms are unchanged. The patient has experienced similar episodes in the past, chronically. The patient has not recently seen a physician. Historical: - Allergies: 12:52 Augmentin; ll1 12:52 basil; ll1 12:52 Clindamycin; ll1 12:52 Morphine; ll1 12:52 Nitroglycerin; ll1 12:52 Tramadol HCl; ll1 12:52 Trazodone; ll1 12:52 Vancomycin; ll1 12:52 Vicodin; ll1 - PMHx: 12:52 ADD/ADHD; CHF; COPD; Diabetes - IDDM; ESRD; High Cholesterol; Hypertension; triple ll1 bypass; uterine cancer; - Immunization history:: Pneumococcal vaccine is up to date, Flu vaccine is up to date. - Social history:: Smoking status: Patient reports the use of cigarette tobacco products, denies chronic smoking, but will smoke occasionally. ROS: 15:09 Constitutional: Negative for fever, chills, and weight loss, Abdomen/GI: Negative for kb abdominal pain, nausea, vomiting, diarrhea, and constipation, Back: Negative for injury and pain, MS/Extremity: Negative for injury and deformity, Skin: Negative for injury, rash, and discoloration, Neuro: Negative for headache, weakness, numbness, tingling, and seizure. 15:09 Cardiovascular: Positive for edema. 15:09 Respiratory: Positive for orthopnea, shortness of breath. Exam: 15:10 Constitutional: This is a well developed, well nourished patient who is awake, alert, kb and in no acute distress. Head/Face: Normocephalic, atraumatic. Cardiovascular: Regular rate and rhythm with a normal S1 and S2. No gallops, murmurs, or rubs. No pulse deficits. Respiratory: Respirations even and unlabored. No increased work of breathing, no retractions or nasal flaring. Abdomen/GI: Soft, non-tender. No distention Neuro: Awake and alert, GCS 15, oriented to person, place, time, and situation. Moves all extremities. Normal gait. Vital Signs: 12:48 BP 145 / 75; Pulse 70; Resp 18; Temp 98.8(O); Pulse Ox 100% on R/A; tw2 14:17 BP 152 / 83; Pulse 72; Resp 17; Pulse Ox 100% on R/A; tw2 15:20 BP 153 / 78; Pulse 73; Resp 17; Pulse Ox 100% on R/A; tw2 16:20 BP 150 / 86; Pulse 73; Resp 17; Pulse Ox 100% on R/A; tw2 17:38 BP 157 / 86; Pulse 72; Resp 17; Pulse Ox 100% on R/A; tw2 MDM: 12:50 Patient medically screened. kb 15:07 Data reviewed: vital signs, nurses notes. Data interpreted: Pulse oximetry: on room air kb is 100 %. Interpretation: normal. Counseling: I had a detailed discussion with the patient and/or guardian regarding: the historical points, exam findings, and any diagnostic results supporting the discharge/admit diagnosis, lab results, radiology results, the need for further work-up and treatment in the hospital. ED course: Discussed diagnostics with pt. BNP elevated above normal for pt. Trop elevated 0.05, which is normal for pt. O2 sat 100% on room air. Pt states she has been sleeping in her wheelchair for 3 nights because she cannot lay down due to shortness of breath. States she needs IV lasix when she gets this way and needs to be admitted for that. Discussed with Dr Nettles (hospitalist) who will see her in the ED. 06/13 12:57 Order name: Basic Metabolic Panel kb 06/13 12:57 Order name: CBC with Diff kb 06/13 12:57 Order name: LFT's; Complete Time: 14:59 kb 06/13 12:57 Order name: Magnesium; Complete Time: 14:59 kb 06/13 12:57 Order name: NT PRO-BNP; Complete Time: 14:59 kb 06/13 12:57 Order name: PT-INR; Complete Time: 14:23 kb 06/13 12:57 Order name: Troponin (emerg Dept Use Only); Complete Time: 14:59 kb 06/13 12:57 Order name: XRAY Chest (1 view); Complete Time: 14:13 kb 06/13 12:57 Order name: Sacrum And Coccyx XRAY; Complete Time: 14:13 kb 06/13 12:57 Order name: Basic Metabolic Panel; Complete Time: 14:59 EDMS 06/13 12:57 Order name: CBC with Automated Diff; Complete Time: 13:31 EDMS 06/13 16:21 Order name: SARS-COV-2 RT PCR; Complete Time: 16:22 EDMS 06/13 12:57 Order name: EKG; Complete Time: 12:58 kb 06/13 12:57 Order name: Cardiac monitoring; Complete Time: 13:17 kb 06/13 12:57 Order name: EKG - Nurse/Tech; Complete Time: 14:30 kb 06/13 12:57 Order name: IV Saline Lock; Complete Time: 13:16 kb 06/13 12:57 Order name: Labs collected and sent; Complete Time: 13:16 kb 06/13 12:57 Order name: O2 Per Protocol; Complete Time: 13:17 kb 06/13 12:57 Order name: O2 Sat Monitoring; Complete Time: 13:17 kb 06/13 15:49 Order name: CONS Physician Consult EDMS Administered Medications: 14:30 Drug: fentaNYL (PF) 25 mcg {Note: rass 0.} Route: IVP; Site: right wrist; tw2 15:30 Follow up: Response: No adverse reaction; Pain is decreased; RASS: Alert and Calm (0) tw2 14:31 Drug: Lasix 20 mg Route: IVP; Site: right wrist; tw2 15:30 Follow up: Response: No adverse reaction tw2 Disposition: 06/14 08:14 Co-signature as Attending Physician, Mika Lopez MD I agree with the assessment and kdr plan of care. Disposition: 06/13/20 15:13 Hospitalization ordered by Oleksandr Nettles for Observation. Preliminary diagnosis is Acute on chronic combined systolic (congestive) and diastolic (congestive) heart failure. - Bed requested for Telemetry/MedSurg (observation). - Status is Observation. jl7 - Condition is Stable. - Problem is new. - Symptoms are unchanged. Signatures: Dispatcher [employer] EDPA Mallory Wilson, REFUELING RAMP SUPERVISOR-C REFUELING RAMP SUPERVISOR-Ckb Svetlana maldonado Mika Gonzalez MD MD kdr Hannah Coker RN RN tw2 Jl Wadsworth RN RN jl7 Gustabo Montalvo RN RN ll1 Corrections: (The following items were deleted from the chart) 06/13 15:10 15:07 ED course: Discussed diagnostics with pt. BNP elevated above normal for pt. Trop kb elevated 0.05, which is normal for pt. O2 sat 100% on room air. Pt states she has been sleeping in her wheelchair for 3 nights because she cannot lay down due to shortness of breath. States she needs IV lasix when she gets this way and needs to be admitted for that. Discussed with Dr Nettles who will see her in the ED. kb 15:41 15:21 CORONAVIRUS+MR.LAB.BRZ ordered. [facility] EDPA 16:41 15:13 Hospitalization Ordered by Oleksandr Nettles MD for Observation. Preliminary bd diagnosis is Acute on chronic combined systolic (congestive) and diastolic (congestive) heart failure. Bed requested for Telemetry/MedSurg (observation). Status is Observation. Condition is Stable. Problem is new. Symptoms are unchanged. kb 18:43 16:41 06/13/2020 15:13 Hospitalization Ordered by Oleksandr Nettles MD for Observation. jl7 Preliminary diagnosis is Acute on chronic combined systolic (congestive) and diastolic (congestive) heart failure. Bed requested for Telemetry/MedSurg (observation). Status is Observation. Condition is Stable. Problem is new. Symptoms are unchanged. bd
--- NOTE | 2020-06-13 16:00 | P.HP ---
Certification for Inpatient Patient admitted to: Inpatient With expected LOS: >2 Midnights Practitioner: I am a practitioner with admitting privileges, knowledge of patient current condition, hospital course, and medical plan of care. Services: Services provided to patient in accordance with Admission requirements found in Title 42 Section 412.3 of the Code of Federal Regulations Patient History Date of Service: 06/13/20 Reason for admission: acute CHF exacerbation History of Present Illness: 65yo F, presenting with worsening lower extremity swelling and orthopnea over the past 3-4 days. She reports she has been taking her medications as prescribed, makes very little urine, and has been more short of breath. She typically has dialysis T-R-S, but had a session yesterday and only had 1 L removed. She reports she has otherwise been doing well. Denies fevers/chills, no nausea/vomiting, no abdominal pain, no urinary symptoms, no new rashes/lesions. She has been following at wound care clinic and reports she has been doing well. She does endorse some midsternal chest pain - mostly when laying down flat. Similar to chest pain she has had intermittently for a "long time". Currently without pain. In the ED, she was found to have BNP >60k, trop: 0.05, Cr: 2.85, K: 4.3. no leukocytosis. CXR consistent with mild-moderate CHF. PMH: CHF, COPD, T2DM, ESRD on HD (T-R-S), CAD s/p CABG and recent stent, HTN, HLD, h/o uterine cancer. Allergies morphine Allergy (Severe, Verified 04/26/20 23:39) Anaphylaxis vancomycin Allergy (Intermediate, Verified 04/26/20 23:39) Shortness of breath basil Allergy (Verified 04/26/20 23:39) Nausea/Vomiting tramadol Allergy (Verified 04/26/20 23:39) Nausea/Vomiting trazodone Allergy (Verified 04/26/20 23:39) Nausea/Vomiting nitroglycerin Adverse Reaction (Mild, Verified 04/26/20 23:39) Nausea/Vomiting Home Medications: Buproprion S.r. [Wellbutrin Sr*] 1 tab PO BID 02/27/20 Clopidogrel Bisulfate [Plavix*] 75 mg PO DAILY 02/27/20 Collagenase [Santyl Ointment*] 1 appl TOP DAILY 02/27/20 Fluticasone [Flovent Hfa 110*] 2 puff IH DAILY 02/27/20 allopurinoL [Allopurinol] 1 tab PO BID 02/27/20 Epoetin [Retacrit] 10,000 unit IV EVERY HD vial 03/02/20 Gabapentin [Neurontin*] 100 mg PO TID #90 cap 03/02/20 Patrice [Patrice*] 1 pkt PO BID #60 powd.pack 03/02/20 Medihoney [Medihoney Woundcare Gel*] 1 appl TOP DAILY #1 tube 03/02/20 Aspirin [Aspirin EC 81 MG] 81 mg PO DAILY 30 Days #30 tablet.dr 05/03/20 Atorvastatin Calcium 40 mg PO BEDTIME 30 Days #30 tablet 05/03/20 Hydralazine [Apresoline*] 25 mg PO TID 30 Days #90 tab 05/03/20 Smz./Tmp. [Bactrim Ds 800 MG/160 MG*] 0.5 tab PO BID 8 Days #8 tab 05/03/20 carvediloL [Coreg*] 6.25 mg PO BID 30 Days #60 tab 05/03/20 lisinopriL [Prinivil*] 5 mg PO DAILY 30 Days #30 tab 05/03/20 - Past Medical/Surgical History Diabetic: Yes -: COPD -: Hypertension -: CAD, CABG x4 vessels (August 2017) -: Diabetes mellitus type 2, insulin-dependent -: Chronic combined systolic/diastolic CHF -: Uterine cancer status post hysterectomy -: Chronic renal disease, stage IV -: TB as a child - Negative 2017 -: Hyperlipidemia -: Iron deficiency anemia -: WEST -: Likely obstructive sleep apnea -: Rectal surgery -: Hysterectomy -: Cholecystectomy -: Gastric surgery -: Appendectomy -: CABG x4 vessel -: RLE Femoral popliteal bypass -: Left great toe amputation Psychosocial/ Personal History: The patient is a . Her son lives with her. She has 3 children. - Family History Brother -: Heart disease, Hypertension, Cancer Notes: Father -: Heart disease, Lung disease, Cancer Notes: - Prostate surgery - Hemorrhage Mother -: GI disease Notes: Sister -: Heart disease Notes: - Respiratory failure - Social History Smoking Status: Unknown if ever smoked Alcohol use: No CD- Drugs: No Caffeine use: Yes Review of Systems 10-point ROS is otherwise unremarkable Physical Examination - Physical Exam General: Alert, In no apparent distress, Oriented x3 HEENT: Sclerae nonicteric Neck: Supple, No Thyromegaly Respiratory: Diminished (at bases bilaterally) Cardiovascular: Edema (2+ up to abdomen bilaterally) Gastrointestinal: Soft and benign, No tenderness Musculoskeletal: No tenderness Integumentary: Other (bilateral superficial ulcers in lower legs, healing well, no purulent drainage) Neurological: Normal speech, Normal affect - Studies Laboratory Data (last 24 hrs) 06/13/20 13:10: PT 13.6 H, INR 1.18 06/13/20 13:10: WBC 7.30, Hgb 10.3 L, Hct 33.3 L, Plt Count 243 06/13/20 13:10: Sodium 135 L, Potassium 4.3, BUN 23 H, Creatinine 2.85 H, Glucose 89, Magnesium 1.9, Total Bilirubin 0.3, AST 15, ALT 12, Alkaline Phosphatase 159 H Assessment and Plan - Advance Directives Does patient have a Living Will: Yes Does patient have a Durable POA for Healthcare: Yes Physician Review Additional Text: Problem List: Acute on chronic diastolic congestive heart failure with volume overload (HFpEF) Chest Pain Diabetes mellitus type 2 CKD stage 4 COPD Hypertension Hyperlipidemia Plan Acute on chronic diastolic congestive heart failure with volume overload: IV Lasix 80mg BID ordered, 1.5 L per day fluid restriction, daily weights. Nephrology consulted for assistance and hemodialysis patient with significant b/l lower extremity edema and to abdomen as well Chest pain occurs with laying down, significant CAD history, recent stent placement as well will trend troponin, pt does historically have elevated trop - in setting of CKD/dialysis consult cardiology if continues to increase, EKG without acute signs of ischemia DM2, CKD4, COPD, HTN, HLD -obtain / confirm home medications, restart as appropriate. -accucheks, sliding scale, adjust as needed VTE: Heparin Code: full Dispo: anticipate dc home in a few days after diuresis Time Spent Managing Pts Care (In Minutes): 60
[2020-06-13] MEDS ORDERED: DIPHENHYDRAMINE 50 MG/ML VIAL IV ONE (19:44)
[2020-06-13] MEDS: INSULIN -REGULAR HUMAN 50 UNIT/0.5 ML ML SQ SCH ×2 (20:56→21:00)
[2020-06-13] MEDS: FUROSEMIDE 40 MG/4 ML VIAL IV SCH ×2 (20:56→23:59)
[2020-06-13] MEDS: ATORVASTATIN 40 MG TAB PO SCH ×2 (21:00→23:09)
[2020-06-13] MEDS: HEPARIN 5000 UNIT/ML 1 ML VIAL SQ SCH ×2 (21:00→23:10)
[2020-06-13 23:41] VITALS: BMI 26.6
[2020-06-14] MEDS ORDERED: FENTANYL CITR 100 MCG/2 ML IV ONE
[2020-06-14 00:36] LABS: Urine Appearance TURBID; Urine Bilirubin NEGATIVE (NEG); Urine Blood NEGATIVE (NEG); Urine Color YELLOW; Urine Glucose NEGATIVE (NEG); Urine Protein NEGATIVE (NEG); Urine Specific Gravity 1.015 (1.005-1.030); Urine Urobilinogen 0.2 mg/dL (0.2-1.0)
[2020-06-14 00:39] LABS: Urine Microscopic Reflex ORDER UMIC
[2020-06-14 00:58] LABS: Urine Amorphous Sediment 3+ /HPF (NONE SEEN); Urine Bacteria <20 /HPF (<20); Urine RBC NONE SEEN /HPF (NONE SEEN)
--- NOTE | 2020-06-14 03:26 | CON ---
Date of Consultation: 06/13/2020 Chief Complaint: Acute congestive heart failure exacerbation and fluid overload. History Of Present Illness: Patient has multiple medical problems including history of congestive heart failure. Chest x-ray on admission showed mild to moderate congestive heart failure with interstitial pulmonary edema. Patient has history of end-stage renal disease. She has been dialyzed on Friday, and Friday. The patient presented to the hospital because of worsening of the lower extremity edema, swelling of both legs, orthopnea over the past 3 to 4 day. She had history of frequent falls. Recently she denies any new fall. Denies seizure. She did not have any cough, sputum production, and denies fever, chills, nausea, vomiting, abdominal pain. Denies urinary symptoms or new skin rash. Review of Systems: Constitutional: Denies fever or chills. Eyes: Denies vision changes. Ears, Nose, Mouth and Throat: Denies sore throat, earache. Respiratory: Has shortness of breath with activities. Denies PND or orthopnea. Denies wheezing or productive cough. : Denies dysuria or hematuria. Musculoskeletal: She is complaining of generalized weakness. Denies unilateral weakness. All other systems reviewed and all are negative. Past Medical History: Congestive heart failure with systolic and diastolic dysfunction, COPD, diabetes mellitus, end-stage renal disease due to diabetic kidney disease and hypertensive kidney disease, benign nephrosclerosis, coronary artery disease, recent stent placement for severe coronary artery disease, hypertension, hyperlipidemia. CABG x4-vessel disease in August 2018, insulin dependent chronic combined systolic and diastolic congestive heart failure, ischemic cardiomyopathy, uterine cancer status post hysterectomy, end-stage renal disease, obstructive sleep apnea, iron deficiency, cholecystectomy, gastric surgery, appendectomy, right lower extremity femoral and popliteal bypass, left great toe amputation. Family History:HTN, heart disease, cancer Social History: No TOB, NO ETOH, no IVDA Physical Examination: General: Not in acute distress. Eyes: Anicteric sclerae. EOMI. Ears, Nose, Mouth, and Throat: Oral mucosa moist. No pallor. Neck: Supple. No bruits. Lungs: Diminished breath sounds at bases. Crackles present bilaterally. Heart: S1, S2. No pericardial friction rub. Abdomen: Soft, obese, nontender. No rebound. No guarding. Extremities: Edema present in both legs. Laboratory Data: WBC 7.3, hemoglobin 10.3, hematocrit 33.3, platelet count 243. Sodium 135, potassium 4.3, BUN 23, creatinine 2.85, glucose 89, magnesium 1.9. Impression And Plan: 1. End-stage renal disease, congestive heart failure exacerbation, fluid overload. The patient has coronary artery disease. Workup is pending to rule out acute coronary syndrome. Urgent dialysis will be scheduled to proceed with ultrafiltration to control volemia, prevent fluid overload, and treat congestive heart failure. 2. Hypertension. Continue blood pressure medication. 3. Diabetes mellitus. Continue insulin. 4. Anemia in chronic kidney disease. Monitor hemoglobin level. Adjust BRONWYN accordingly. 5. Renal osteodystrophy. Continue renal diet and binders. EB/MODL Voice ID: [id number] Report ID: [id number] MTDD
[2020-06-14 04:20] LABS: Absolute Lymphocytes (CBC) 1.9 K/uL (0.7-4.9); Basophils % 1.3 % (0-1.3); Hematocrit 32.1 % (36.0-45.0); Lymphocytes % 28.1 % (15.3-44.8); MPV 7.1 fL (7.6-11.3); RBC Red Blood Cell Count 3.73 M/uL (3.86-4.86)
[2020-06-14 04:31] LABS: Albumin 2.5 g/dL (3.4-5.0); Bilirubin Total 0.5 mg/dL (0.2-1.0); Potassium 4.5 mmol/L (3.5-5.1); Protein, Total 7.7 g/dL (6.4-8.2)
[2020-06-14] MEDS: INSULIN -REGULAR HUMAN 50 UNIT/0.5 ML ML SQ SCH ×4 (07:30→21:00)
[2020-06-14] MEDS: ASPIRIN EC 81 MG TAB PO SCH (08:58)
[2020-06-14] MEDS: carvediloL 6.25 MG TAB PO SCH ×2 (08:58→16:50)
[2020-06-14] MEDS: CLOPIDOGREL 75 MG TABLET PO SCH (08:58)
[2020-06-14] MEDS: FUROSEMIDE 40 MG/4 ML VIAL IV SCH ×2 (08:58→16:49)
[2020-06-14] MEDS: HEPARIN 5000 UNIT/ML 1 ML VIAL SQ SCH ×2 (08:59→21:00)
[2020-06-14 10:39] LABS: Phosphorus 4.3 mg/dL (2.5-4.9)
--- NOTE | 2020-06-14 13:29 | P.PN ---
Subjective Date of Service: 06/14/20 Chief Complaint: acute CHF exacerbation Subjective: Improving (feeling better today, swelling slightly improved, breathing slightly more comfortably. reports some lower back/buttock pain from fall at home) Review of Systems 10-point ROS is otherwise unremarkable Physical Examination - Vital Signs Temperature: 96.9 F Blood Pressure: 160/79 Pulse: 74 Respirations: 16 Pulse Ox (%): 98 - Studies Laboratory Data (last 24 hrs) 06/13/20 13:10: PT 13.6 H, INR 1.18 06/13/20 13:10: WBC 7.30, Hgb 10.3 L, Hct 33.3 L, Plt Count 243 06/13/20 13:10: Sodium 135 L, Potassium 4.3, BUN 23 H, Creatinine 2.85 H, Glucose 89, Magnesium 1.9, Total Bilirubin 0.3, AST 15, ALT 12, Alkaline Phosphatase 159 H Assessment & Plan Physician Review Additional Text: Physical Exam Gen: NAD HEENT: normal conjunctiva, sclera anicteric CV: RRR, no murmur Pulm: diminished at bases bilaterally Abd: soft, NTND Ext: 2+ pitting edema up to abdomen bilaterally, wrapped in BLAYNE bandages Problem List: Acute on chronic diastolic congestive heart failure with volume overload (HFpEF) Chest Pain Diabetes mellitus type 2 CKD stage 4 COPD Hypertension Hyperlipidemia Plan Acute on chronic diastolic congestive heart failure with volume overload: IV Lasix 80mg BID ordered, 1.5 L per day fluid restriction Nephrology consulted for assistance and hemodialysis patient with significant b/l lower extremity edema and to abdomen as well - with improvement today s/p HD yesterday Chest pain trop remained low, improved this morning, reports minimal discomfort now, do not suspect ACS at this time DM2, CKD4, COPD, HTN, HLD -restart home medications -accucheks, sliding scale, adjust as needed VTE: Heparin Code: full Dispo: anticipate dc home in 1-2 days Time Spent Managing Pts Care (In Minutes): 35
[2020-06-14] MEDS: GABAPENTIN 100 MG CAP PO SCH ×3 (14:00→23:36)
[2020-06-14] MEDS: HYDROMORPHONE HCL 0.5 MG/0.5 ML INJ IV PRN ×2 (15:00→23:34)
--- NOTE | 2020-06-14 16:49 | EKG ---
Test Date: 2020-06-13 Test Time: 13:25:04 Radio Division Captain: JULIANO MEASUREMENT RESULTS: Intervals: Rate: 71 [place]: 166 QRSD: 92 QT: 424 QTc: 460 [place]: P: 41 [place]: 166 QRS: 110 T: 140 INTERPRETIVE STATEMENTS: Normal sinus rhythm Right axis deviation Incomplete right bundle branch block Anteroseptal infarct, age undetermined ST & T wave abnormality, consider lateral ischemia Abnormal ECG Compared to ECG 04/26/2020 14:56:02 Right-axis deviation now present Incomplete right bundle-branch block now present ST (T wave) deviation now present Possible ischemia now present Sinus tachycardia no longer present Myocardial infarct finding still present Electronically Signed On 06-14-20 16:47:53 CDT by Taj Raymond
[2020-06-14] MEDS: SEVELAMER CARBONATE 800 MG TABLET PO SCH (16:50)
[2020-06-14] MEDS ORDERED: DIPHENHYDRAMINE 50 MG/ML VIAL IV ONE (20:32)
[2020-06-14] MEDS ORDERED: ATORVASTATIN 40 MG TAB PO SCH (21:00)
[2020-06-14] MEDS: allopurinoL 100 MG TAB PO SCH (21:00)
[2020-06-14] MEDS: JUVEN PACKET PO SCH (21:00)
--- NOTE | 2020-06-14 22:52 | PN ---
Date of Progress Note: 06/14/2020 Subjective: The patient was admitted with over volume, cellulitis and anasarca. The patient was dialyzed yesterday. Plan for dialysis today. Objective: Vital Signs: When I saw the patient, blood pressure 159/84, pulse of 67, afebrile. Chest: Crackles bilateral. Heart: S1, S2. Systolic murmur. Abdomen: Soft, nontender. Extremities: +3 edema bilateral with erythema. Compression dressing in both lower extremities. Neuro: Alert and oriented x3. No focal. Current Medications: The patient on include, 1. Vancomycin. 2. tyelenol 3. Renvela. 4. Epogen. Laboratory Data: WBC 6.8, H and H 10/32.1. Sodium 139, potassium 4.5, bicarb 31, BUN 15, creatinine 2.3. Assessment And Plan: 1. End-stage renal disease, over volume. We will continue daily dialysis to establish better volume control and we will monitor the patient closely. 2. Anemia of chronic kidney disease. Continue BRONWYN. 3. Secondary hyperpara. No need for binder right now. 4. Anasarca secondary to renal failure. TSH within normal limit. We will continue daily dialysis to establish better volume control. 5. Cellulitis. Continue current antibiotic. We will follow up with the primary. 6. Congestive heart failure with exacerbation anasarca we will continue on daily dialysis. time spent examined the patient face to face s discussed with the patient placed order discussing the case with other donor services team leader including nurses , discussing with other specialist include a hospitalist 45 min GAMA Voice ID: [id number] Report ID: [id number] AZUCENA
[2020-06-14] MEDS: ATORVASTATIN 40 MG TAB PO SCH (23:35)
[2020-06-14] MEDS: BUPROPRION HCL S.R. 150MG TAB PO SCH (23:36)
[2020-06-15 04:46] LABS: Absolute Lymphocytes (CBC) 2.1 K/uL (0.7-4.9); Basophils % 0.3 % (0-1.3); Hematocrit 33.4 % (36.0-45.0); Lymphocytes % 32.4 % (15.3-44.8); MPV 6.9 fL (7.6-11.3); RBC Red Blood Cell Count 3.86 M/uL (3.86-4.86)
[2020-06-15 04:59] LABS: Potassium 4.7 mmol/L (3.5-5.1)
[2020-06-15] MEDS: INSULIN -REGULAR HUMAN 50 UNIT/0.5 ML ML SQ SCH ×3 (07:30→16:30)
[2020-06-15] MEDS: FUROSEMIDE 40 MG/4 ML VIAL IV SCH ×2 (08:14→16:51)
[2020-06-15] MEDS: BUPROPRION HCL S.R. 150MG TAB PO SCH (08:15)
[2020-06-15] MEDS: HYDROMORPHONE HCL 0.5 MG/0.5 ML INJ IV PRN (08:15)
[2020-06-15] MEDS: carvediloL 6.25 MG TAB PO SCH ×2 (08:15→16:52)
[2020-06-15] MEDS: GABAPENTIN 100 MG CAP PO SCH ×2 (08:15→15:19)
[2020-06-15] MEDS: SEVELAMER CARBONATE 800 MG TABLET PO SCH ×3 (08:15→16:52)
[2020-06-15] MEDS: CLOPIDOGREL 75 MG TABLET PO SCH (08:15)
[2020-06-15] MEDS: ASPIRIN EC 81 MG TAB PO SCH (08:15)
[2020-06-15] MEDS: JUVEN PACKET PO SCH (08:16)
[2020-06-15] MEDS ORDERED: MEDIHONEY 44 ML TOPICAL TUBE TOP SCH (09:00)
[2020-06-15] MEDS ORDERED: SERTRALINE HCL 50 MG TAB PO SCH (09:00)
[2020-06-15] MEDS ORDERED: ASPIRIN 81 MG CHEWABLE TABLET PO SCH (09:00)
[2020-06-15] MEDS: allopurinoL 100 MG TAB PO SCH (09:00)
[2020-06-15] MEDS ORDERED: COLLAGENASE 30 GM OINTMENT TOP SCH (09:00)
[2020-06-15] MEDS: HEPARIN 5000 UNIT/ML 1 ML VIAL SQ SCH (09:00)
[2020-06-15 10:55] VITALS: O2SAT 97
[2020-06-15 17:13] VITALS: BP 158/76; TEMP 97
--- NOTE | 2020-06-15 20:55 | P.DS ---
Admission Date: 06/13/20 Discharge Date: 06/15/20 Disposition: DC HOME/HOME HEALTH CARE Discharge Condition: GOOD Reason for Admission: acute CHF exacerbation Consultations: Nephrology - Dr. Fernando, Dr. Eng Procedures: CXR (06/13): Prominent right basilar lung opacity is seen, relatively chronic in this patient. It is likely a combination chronic effusion and atelectasis. Mild interstitial pulmonary edema noted. The heart is moderately enlarged in size with sternotomy wires present. Left-sided venous catheter tip in SVC. Sacrum & Coccyx X-ray: The bones are demineralized. No gross fracture appreciate d. Problem List: Acute on chronic diastolic congestive heart failure with volume overload (HFpEF) Chest Pain Diabetes mellitus type 2 CKD stage 4 COPD Hypertension Hyperlipidemia Brief History of Present Illness: 65yo F, presenting with worsening lower extremity swelling and orthopnea over the past 3-4 days. She reports she has been taking her medications as prescribed, makes very little urine, and has been more short of breath. She typically has dialysis T-R-S, but had a session yesterday and only had 1 L removed. She reports she has otherwise been doing well. Denies fevers/chills, no nausea/vomiting, no abdominal pain, no urinary symptoms, no new rashes/lesions. She has been following at wound care clinic and reports she has been doing well. She does endorse some midsternal chest pain - mostly when laying down flat. Similar to chest pain she has had intermittently for a "long time". Currently without pain. In the ED, she was found to have BNP >60k, trop: 0.05, Cr: 2.85, K: 4.3. no leukocytosis. CXR consistent with mild-moderate CHF. PMH: CHF, COPD, T2DM, ESRD on HD (T-R-S), CAD s/p CABG and recent stent, HTN, HLD, h/o uterine cancer. Hospital Course: Patient's chest pain was evaluated by EKG (no acute ischemic changes) and troponins (remained low). Nephrology was consulted for dialysis. Patient received daily dialysis and had significant improvement of her edema and breathing. She reported feeling significantly better and ready for discharge home. She was discharged home, reported she was scheduled to have dialysis tomorrow and then to resume her typical [facility] schedule. Vital Signs/Physical Exam: Physical Exam Gen: NAD HEENT: normal conjunctiva, sclera anicteric CV: RRR, no murmur Pulm: diminished at bases bilaterally Abd: soft, NTND Ext: 2+ pitting edema up to abdomen bilaterally, wrapped in BLAYNE bandages Temp Pulse Resp BP Pulse Ox 97.0 F 57 16 158/76 H 100 06/15/20 16:00 06/15/20 16:00 06/15/20 16:00 06/15/20 16:00 06/15/20 16:00 Laboratory Data at Discharge: WBC 6.40 K/uL (4.3-10.9) 06/15/20 04:29 Hgb 10.7 g/dL (12.0-15.0) L 06/15/20 04:29 Hct 33.4 % (36.0-45.0) L 06/15/20 04:29 Plt Count 255 K/uL (152-406) 06/15/20 04:29 PT 13.6 SECONDS (9.5-12.5) H 06/13/20 13:10 INR 1.18 06/13/20 13:10 Sodium 135 mmol/L (136-145) L 06/15/20 04:29 Potassium 4.7 mmol/L (3.5-5.1) 06/15/20 04:29 BUN 20 mg/dL (7-18) H 06/15/20 04:29 Creatinine 2.75 mg/dL (0.55-1.3) H 06/15/20 04:29 Glucose 105 mg/dL (74-106) 06/15/20 04:29 Phosphorus 4.3 mg/dL (2.5-4.9) 06/14/20 03:53 Magnesium 2.0 mg/dL (1.8-2.4) 06/15/20 04:29 Total Bilirubin 0.5 mg/dL (0.2-1.0) 06/14/20 03:53 AST 12 U/L (15-37) L 06/14/20 03:53 ALT 12 U/L (12-78) 06/14/20 03:53 Alkaline Phosphatase 154 U/L (45-117) H 06/14/20 03:53 Troponin I 0.05 ng/mL (0.0-0.045) H 06/14/20 09:56 Home Medications: Allopurinol 100 mg PO BID 06/13/20 Aspirin 81 mg PO DAILY 06/13/20 Atorvastatin Calcium [Lipitor] 40 mg PO BEDTIME 06/13/20 Buproprion S.r. [Wellbutrin Sr*] 150 mg PO BID 06/13/20 Clopidogrel Bisulfate [Plavix*] 75 mg PO DAILY 06/13/20 Collagenase [Santyl Ointment*] 1 appl TOP DAILY 06/13/20 Epoetin [Retacrit] 10,000 units IV DIRECTED 06/13/20 Fluticasone [Flovent Hfa 110*] 2 puff IN DAILY 06/13/20 Gabapentin [Neurontin*] 100 mg PO TID 06/13/20 Hydralazine [Apresoline*] 25 mg PO TID 06/13/20 Patrice [Patrice*] 1 pkt PO BID 06/13/20 Medihoney [Medihoney Woundcare Gel*] 1 appl TOP DAILY 06/13/20 carvediloL [Carvedilol] 6.25 mg PO BID 06/13/20 lisinopriL [Prinivil*] 5 mg PO DAILY 06/13/20 Allopurinol 100 mg PO BID 06/14/20 Cholestyramine (with Sugar) [Cholestyramine Packet] 1 packet PO DAILY PRN 06/14/20 Furosemide [Lasix*] 2 tab PO BID 06/14/20 Gabapentin [Neurontin*] 100 mg PO TID 06/14/20 Sertraline HCl 25 mg PO DAILY 06/14/20 Sevelamer Carbonate [Renvela*] 2 tab PO TID* 06/14/20 Physician Discharge Instructions: PROBLEM: Acute congestive heart failure GOAL: Clear understanding of disease process INSTRUCTIONS: Diet: Renal Activity: As tolerated If you have any questions regarding your stay call [phone] If your symptoms worsen call 911 or go to the ED. you were found to be in acute heart failure with volume overload. Your fluid was removed with dialysis and you improved significantly. You are discharged home to resume medications as previously prescribed. Please continue dialysis as previously scheduled and follow up with your PCP in the next week. Please follow renal diet with salt restriction Diet: Renal Activity: Ad shira Followup: Unknown,U [Primary Care Provider] - Time spent managing pt's care (in minutes): 35
--- NOTE | 2020-06-15 22:53 | P.PN ---
Subjective Date of Service: 06/16/20 Chief Complaint: acute CHF exacerbation Subjective: No new changes Physical Examination - Vital Signs Temperature: 97.0 F Blood Pressure: 158/76 Pulse: 57 Respirations: 16 Pulse Ox (%): 100 - Physical Exam General: In no apparent distress HEENT: Atraumatic, Normocephalic Neck: Without JVD or thyroid abnormality Respiratory: Clear to auscultation bilaterally Cardiovascular: No murmurs Musculoskeletal: No warmth Neurological: Other (Non-focal) Assessment And Plan - Plan # ESRD on HD Received HD Fri/Fri/Fri this wk Next HD tomorrow Friday & Friday Renal diet # Acute decompensated HF Improved Cont current cardioprudent meds # Htn Cont current regimen # Anemia Monitor H/H # Dispo Ok to dc today Physician Review Additional Text: Physical Exam Gen: NAD HEENT: normal conjunctiva, sclera anicteric CV: RRR, no murmur Pulm: diminished at bases bilaterally Abd: soft, NTND Ext: 2+ pitting edema up to abdomen bilaterally, wrapped in BLAYNE bandages Problem List: Acute on chronic diastolic congestive heart failure with volume overload (HFpEF) Chest Pain Diabetes mellitus type 2 CKD stage 4 COPD Hypertension Hyperlipidemia Plan Acute on chronic diastolic congestive heart failure with volume overload: IV Lasix 80mg BID ordered, 1.5 L per day fluid restriction Nephrology consulted for assistance and hemodialysis patient with significant b/l lower extremity edema and to abdomen as well - with improvement today s/p HD yesterday Chest pain trop remained low, improved this morning, reports minimal discomfort now, do not suspect ACS at this time DM2, CKD4, COPD, HTN, HLD -restart home medications -accucheks, sliding scale, adjust as needed VTE: Heparin Code: full Dispo: anticipate dc home in 1-2 days
== END 2020-06-15 18:17 | disposition home health service (06) | DRG 291 ==
LOC: ER 12:32 → ERHOLD 15:48 → 2ND 18:00
PROVIDERS: ADMIT Hospitalist; ATTEND Hospitalist
PROC: 5A1D70Z Performance of Urinary Filtration, Intermittent, Less than 6 Hours Per Day (ICD-10-PCS; principal; 2020-06-13)
DX: I13.2 Hypertensive heart and chronic kidney disease with heart failure and with stage 5 chronic kidney disease, or end stage renal disease (principal); I50.33 Acute on chronic diastolic (congestive) heart failure; N18.6 End stage renal disease; N25.81 Secondary hyperparathyroidism of renal origin; L03.90 Cellulitis, unspecified; E11.22 Type 2 diabetes mellitus with diabetic chronic kidney disease; L89.891 Pressure ulcer of other site, stage 1; F17.210 Nicotine dependence, cigarettes, uncomplicated; N25.0 Renal osteodystrophy; E78.5 Hyperlipidemia, unspecified; I25.10 Atherosclerotic heart disease of native coronary artery without angina pectoris; J44.9 Chronic obstructive pulmonary disease, unspecified; Z88.1 Allergy status to other antibiotic agents; Z88.5 Allergy status to narcotic agent; Z88.8 Allergy status to other drugs, medicaments and biological substances; Z95.5 Presence of coronary angioplasty implant and graft; Z91.09 Other allergy status, other than to drugs and biological substances; Z85.42 Personal history of malignant neoplasm of other parts of uterus; Z79.02 Long term (current) use of antithrombotics/antiplatelets; Z99.2 Dependence on renal dialysis; Z79.82 Long term (current) use of aspirin; Z79.899 Other long term (current) drug therapy; Z90.49 Acquired absence of other specified parts of digestive tract; Z90.710 Acquired absence of both cervix and uterus; Z89.412 Acquired absence of left great toe; Z20.822 Contact with and (suspected) exposure to COVID-19
CPT/HCPCS: 36415; 71045; 72220; 80048; 80053; 80076; 81003; 81015; 82947; 83735; 83880; 84100; 84484; 85025; 85610; 90935; 93005; 94760; 96374; 96375; 97116; 97161; 99285; J1170; J1200; J1644; J1940; J3010; J3590; U0003

== ENCOUNTER 2020-06-27 13:29 | Emergency (ER) | payer OTHER ==
--- OUTSIDE RECORDS SUMMARY | 2020-06-27 13:41 | XMS REPORT | Continuity of Care Document ---
:1955 Author Organization [facility] t Address [address] [place] [address] Care Team Providers Name Role Phone Landy Rendon Primary Care Physician Babatunde PIERRE Attending Clinician Mk PIERRE Attending Clinician Lisa Mohamud MD Attending Clinician LISA MOHAMUD Attending Clinician Unavailable Kj PIERRE, Tracy Attending Clinician Urmila PIERRE, Cesia Attending Clinician Neeta PIERRE, Thy Attending Clinician Belkis PIERRE, Taj Attending [...] Policy Effective Date Expiration Date Sour ce Cassie ALMANZA [id number] [facility] MEDICAIDMEDICAID 00:00:00 - Marium [id number] Ce nter 2-Present Problems Condition Condition Condition [...] rosis of [address] [facility] [place] [facility]: Medical artery of artery of 00 [...] l mellitus mellitus 00 Center 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 y disorder, disorder, with with long-term long-term current current use of use of insulin insulin Smoker Smoker Disease Active [facility] Center Frequent Frequent Disease Active [facility] PVCs PVCs [facility]12 [facility] Center Essential Essential Problem Active [facility] (primary[facility] (primary[facility] Luke s - hypertensi hypertensi Me moria on [facility] Depression Depression Problem Active [...] d COPD d COPD Clinics type type custodial custodial Problem Active [facility] current current [...] St disease disease [facility] Allergies, Adverse Reactions, Alerts Allergy Allergy Status Severity Reaction(s) Onset Inactive Treating Comm ents Source Name Type Date Date Clinician Trazodon Drug Active Nausea And [facility] Allergy Vomiting 2-12 [facility] - 00:00: Medical 00 Clever Morphine Propensi Active Anaphylaxis C HI St [...] in HCl Reaction [facility] Nitrogly Adverse Active vomiting [facility] cerin Reaction [facility] Morphine Adverse Active headache, [facility] Sulfate Reaction breathing Luke s - Memoria l [facility] Clindamy Adverse Active vomiting [facility] riley HCl Reaction [facility] Family History Family Member Diagnosis Comments Start Date Stop Date Source Natural father COPD [facility] Natural father Cancer [facility] Natural father Hypertension [facility] Natural mother No Known Problem [facility] Natural sister Asthma [facility] Natural sister COPD [facility] Social History Social Habit Start Date Stop Date Quantity Comments Source Sex Assigned At [facility] Cigarettes smoked 2019-12-31 2019-12-[address] [facility] bernardino - current (pack per 00:00:00 00:00:00 [facility] day) - Reported Cigarette 2019-12-31 2019-12-31 [facility] - pack-years 00:00:00 00:00:00 [facility] Tobacco use and 2019-12-31 2019-12-31 Never used [facility] - exposure 00:00:00 00:00:00 [facility] Alcohol intake 2019-12-31 2019-12-31 Current [facility] - 00:00:00 00:00:00 non-drinker of Medical Ce nter alcohol (finding) History of tobacco 2017-05-12 Current sm[facility] use 00:[facility]00 [facility] Smoking Status Start Date Stop Date Source Former smoker 2019-12-31 00:00:00 2019-12-31 00:00:[address] [facility] Medications Ordered Filled Start Stop Current Ordering Indication Dosage Frequency Signature Comments Components Source Medication Medication Date Date Medication? Clinician (SIG) Name Name mupirocin 2019-03 Yes QD Apply [facility] (BACTROBAN) 0-03 topically Lay es - 2 % 10:49: daily. Medical ointment [address] [place] [address] collagenase 2019-03 Yes QD Apply [facility] (SANTYL) 0-03 topically [facility] - 250 units/g 10:49: daily. Medi marilin ointment [address] [place] [address] bumetanide 2019-03 Yes 2mg [id number] Take [address] (BUMEX) 2 0-03 [id number] by mouth 3 [facility] - MG tablet [...] - MOUTH Memoria EVERYDAY l AT BEDTIME [facility] Isosorbide Isosorbide Yes Franki [...] [facility] - M[facility]TH [facility] EVERY DAY l [facility] Acetaminoph Acetaminoph Yes Franki (Schedule [facility] en-Codeine en-Codeine Jas III Drug) Shannon - #3 #3 TAKE 1 Memoria TABLET BY l MOUTH Outpati EVERY 6 ent HOURS Clinics NEEDED FOR PAIN Carvedilol Carvedilol Yes Franki TAKE [address] [facility] Jas TABLET BY [facility] - [facility]TH Memoria TWICE A l DAY [facility] Advair Advair Yes Franki INHALE 1 [facility] Diskus Diskus Jas DOSE BY [facility] - M[facility]TH Memoria TWICE l DAILY. [facility] RINSE ent MOUTH Clinics AFTER USE Atorvastati Atorvastati Yes Franki TAKE [address] [facility] n Calcium n Calcium Jas TABLET BY [facility] - [facility]TH [facility] EVERY DAY l [facility] Allopurinol Allopurinol Yes Franki TAKE [address] [facility] Jas TABLET BY [facility] - MOUTH Memoria TWICE A l DAY [facility] Gabapentin Gabapentin Yes Franki TAKE [address] [facility] Jas CAPSULE BY Lukes - MOUTH Memoria THREE l TIMES A Outpati DAY ent Clinics Clopidogrel Clopidogrel Yes Franki TAKE [address] [facility] Bisulfate Bisulfate Jas TABLET BY [facility] - [facility]TH Memoria EVERY DAY l [facility] Vitamin D Vitamin D [...] Jas PUFFS 3 [facility] - TIMES A oria DAY l NEEDED FOR Outpati SHORTNESS ent OF BREATH Clinics Levemir Levemir Yes Franki INJECT [address] FlexTouch FlexTouch Jas UNITS Lay es - BELOW THE [facility] SKIN IN l THE Outpati MORNING ent Clinics HydrALAZINE HydrALAZINE Yes Franki TAKE [address] [facility] HCl HCl Jas TABLET BY [facility] - MOUTH Memoria THREE l TIMES A Outpati DAY ent Clinics Vital Signs Vital Name Observation Time Observation Value Comments Source Heart rate 2020-01-01 08:41:00 60 /min [facility] Respiratory rate 2020-01-01 08:41:00 18 /min [facility] Oxygen saturation in 2020-01-01 08:41:00 100 /min [facility] Arterial blood by Medical Ce nter Pulse oximetry Systolic blood 2020-01-01 08:32:00 162 mm[Hg] [facility] Diastolic blood 2020-01-01 08:32:00 73 mm[Hg] [facility] S [facility] Body temperature 2020-01-01 07:41:00 36.56 Deanne [facility] Body weight 2019-12-30 04:28:00 78.[address] [facility] BMI 2019-12-30 04:28:00 27.00 kg/m2 [facility] Body height 2019-12-25 21:05:00 170.[address] [facility] Procedures Procedure Date / Time Performed Performing Clinician [facility] e REPORT OF PROCEDURE - 2020-01-05 08:40:02 Provider, Default [facility] ENDOSCOPY SCAN Scanning [facility] RHYTHM STRIP - SCAN 2020-01-05 08:31:43 Provider, Default [facility] Scanning [facility] RHYTHM STRIP - SCAN 2020-01-05 08:31:42 Provider, Default [facility] RHYTHM STRIP - SCAN 2020-01-05 08:31:40 Provider, Default [facility] CARDIAC CATH REPORT - 2020-01-05 08:31:15 Provider, Default [facility] CARDIAC CATH REPORT - 2020-01-05 08:31:13 Rocco Sepulveda [facility] POCT-GLUCOSE METER 2020-01-01 06:33:00 Cade [facility] CBC W/PLT COUNT & AUTO 2020-01-01 05:37:00 Lily Echavarria [facility] COMPREHENSIVE METABOLIC 2020-01-01 05:37:00 [facility] POCT-GLUCOSE METER 2019-12-31 20:50:00 Cade, [facility] POCT-GLUCOSE METER 2019-12-31 18:00:00 Cade [facility] POCT-GLUCOSE METER 2019-12-31 11:42:00 Cade [facility] POCT-GLUCOSE METER 2019-12-31 06:29:00 Cade [facility] CBC W/PLT COUNT & AUTO 2019-12-31 06:05:00 JerichoLily [facility] COMPREHENSIVE METABOLIC 2019-12-31 06:05:[address] [facility] MAGNESIUM 2019-12-31 06:05:00 [facility] POCT-GLUCOSE METER 2019-12-30 20:13:00 [facility] POCT-GLUCOSE METER 2019-12-30 16:26:00 Cade [facility] SURGICALLY OBTAINED 2019-12-30 13:59:46 Tala Santacruz I [facility] - CULTURE + GRAM STAIN Medical [facility] ANAEROBIC CULTURE 2019-12-30 13:59:46 Tala Santacruz [facility] SURGICALLY OBTAINED 2019-12-30 13:54:56 Tala Santacruz [facility] I [facility] - CULTURE + GRAM STAIN Medical [facility] ter ANAEROBIC CULTURE 2019-12-30 13:54:56 [facility] T[facility]UE [facility]AM 2019-12-30 13:38:00 Tala Santacruz [facility] I&D,BONE FOOT 2019-12-30 13:11:00 Tala Santacruz [facility] POCT-GLUCOSE METER 2019-12-30 11:39:00 [facility] POCT-GLUCOSE METER 2019-12-30 05:39:00 [facility] SARS-COV2/RT-PCR ([facility] & 2019-12-30 05:11:00 [facility]) [facility] CBC W/PLT COUNT & AUTO 2019-12-30 05:09:00 [place] [facility] METABOLIC 2019-12-30 05:09:[address] [facility] POCT-GLUCOSE METER 2019-12-29 21:09:00 [facility] POCT-GLUCOSE METER 2019-12-29 11:10:00 Pat Mohamud [facility] HEMODIALYSIS INPATIENT 2019-12-29 08:12:17 Brandie Khan [facility] POCT-GLUCOSE METER 2019-12-29 06:10:00 [facility] CBC W/PLT COUNT & AUTO 2019-12-29 05:50:00 [place] [facility] METABOLIC 2019-12-29 05:50:[address] [facility] POCT-GLUCOSE METER 2019-12-28 20:37:00 Cade [facility] POCT-GLUCOSE METER 2019-12-28 17:38:00 Cade [facility] POCT-GLUCOSE METER 2019-12-28 13:12:00 Cade [facility] POCT-GLUCOSE METER 2019-12-28 05:43:00 Cade [facility] CBC W/PLT COUNT & AUTO 2019-12-28 04:41:00 Lily Echavarria KATHRYN S t [facility] COMPREHENSIVE METABOLIC 2019-12-28 04:41:[address] [facility] ABD AO & LOWER EXT 2019-12-28 02:30:00 Sakina Tamayo [facility] - ANGIOS/ POSS [facility] POCT-GLUCOSE METER 2019-12-27 20:32:00 Pat Mohamud [facility] MR LOWER EXTREMITY 2019-12-27 16:30:00 Jericho Lily [facility] - WITHOUT IV CONTRAST [facility] POCT-GLUCOSE METER 2019-12-27 14:06:00 [facility] WOUND [facility] + GRAM 2019-12-27 12:02:00 Annia Delgado [facility] I [facility] - STAIN [facility] POCT-GLUCOSE METER 2019-12-27 06:44:00 Pat Mohamud [facility] POCT-GLUCOSE METER 2019-12-27 05:49:00 Pat Mohamud [facility] CBC W/PLT COUNT & AUTO 2019-12-27 05:05:00 [facility] METABOLIC 2019-12-27 05:05:[address] [facility] HEMODIALYSIS INPATIENT 2019-12-27 00:31:18 Brandie Khan [facility] POCT-GLUCOSE METER 2019-12-26 20:51:00 Pat Mohamud [facility] TRANSFUSION SERVICE 2019-12-26 18:02:44 Rocco Sepulveda [facility] REPORT - SCAN Scanning [facility] POCT-GLUCOSE METER 2019-12-26 16:42:[address] [facility] [address]CTA AAA AND RUNOFF 2019-12-26 15:27:00 Sakina Tamayo [facility] POCT-GLUCOSE METER 2019-12-26 11:59:00 Pat Mohamud [facility] POCT-GLUCOSE METER 2019-12-26 06:09:00 [facility] CBC W/PLT COUNT & AUTO 2019-12-26 04:36:00 [place] [facility] COMPREHENSIVE [facility] 2019-12-26 04:36:[address] [facility] PREPARE LEUKO-REDUCED RBC 2019-12-25 23:54:00 Brandie Khan [facility] POCT-GLUCOSE METER 2019-12-25 20:51:00 Pat Mohamud [facility] TRANSFUSION SERVICE 2019-12-25 18:04:44 Rocco Sepulveda [facility] - SCAN Scanning [facility] POCT-GLUCOSE METER 2019-12-25 17:01:00 Pat Mohamud [facility] POCT-GLUCOSE METER 2019-12-25 11:25:00 Pat Mohamud [facility] CBC W/PLT COUNT & AUTO 2019-12-25 05:59:00 Lily Echavarria [facility] 2019-12-25 05:59:00 [facility] POCT-GLUCOSE METER 2019-12-25 05:58:00 Cade [facility] TRANSFUSE LEUKO-REDUCED 2019-12-24 19:06:17 Brandie Khan [facility] RED BLOOD CELLS [facility] POCT-GLUCOSE METER 2019-12-24 16:15:00 [facility] ABORH, MANUAL 2019-12-24 08:25:00 Jovita Griffith [facility] POCT-GLUCOSE METER 2019-12-24 06:11:00 Cade [facility] TYPE AND SCREEN, 2019-12-24 06:08:[address] [facility] es - AUTOMATED [facility] CBC W/PLT COUNT & AUTO 2019-12-24 05:51:00 [place] [facility] 2019-12-24 05:51:[address] [facility] POCT-GLUCOSE METER 2019-12-23 21:23:00 Pat Mohamud [facility] POCT-GLUCOSE METER 2019-12-23 16:42:00 Pat Mohamud [facility] MR LOWER EXTREMITY JOINT 2019-12-23 15:34:00 Tala Santacruz hy [facility] - ONLY WITHOUT IV CONTRAST [facility] LEFT MR BRAIN WITHOUT IV 2019-12-23 15:34:[address] [facility] St L uk - CONTRAST [facility] POCT-GLUCOSE METER 2019-12-23 11:16:00 Pat Mohamud [facility] ARTERIAL DOPPLER LEGS 2019-12-23 09:38:00 Tala Santacruz Thy [facility] BILATERAL [facility] Center AMMONIA 2019-12-23 04:05:00 Mariela Carrasco [facility] CBC W/PLT COUNT & AUTO 2019-12-23 04:00:[address] [facility] COMPREHENSIVE METABOLIC 2019-12-23 04:00:[address] [facility] SARS-COV2/RT-PCR ([facility] & 2019-12-23 03:59:00 Pat Mohamud [facility] POCT-GLUCOSE METER 2019-12-22 20:34:00 Pat Mohamud [facility] POCT-GLUCOSE METER 2019-12-22 16:43:00 Pat Mohamud [facility] POCT-GLUCOSE METER 2019-12-22 11:31:00 Pat Mohamud [facility] POCT-GLUCOSE METER 2019-12-22 06:30:00 [facility] CBC W/PLT COUNT & AUTO 2019-12-22 05:14:[address] [facility] S t [facility] COMPREHENSIVE METABOLIC 2019-12-22 05:14:[address] [facility] POCT-GLUCOSE METER 2019-12-21 20:26:00 Pat Mohamud [facility] POCT-GLUCOSE METER 2019-12-21 17:22:00 Cade [facility] POCT-GLUCOSE METER 2019-12-21 12:35:00 Cade [facility] POCT-GLUCOSE METER 2019-12-21 07:20:00 Cade [facility] POCT-GLUCOSE METER 2019-12-21 05:52:00 Cade [facility] C-REACTIVE PROTEIN 2019-12-21 04:39:00 Annia Delgado [facility] CBC W/PLT COUNT & AUTO 2019-12-21 04:39:00 [facility] COMPREHENSIVE METABOLIC 2019-12-21 04:39:00 [place] [facility] US ABDOMEN COMPLETE 2019-12-20 21:17:00 Sakina Chen [facility] POCT-GLUCOSE METER 2019-12-20 20:23:00 Cade [facility] POCT-GLUCOSE METER 2019-12-20 17:31:00 Cade [facility] CT BRAIN WITHOUT IV 2019-12-20 16:04:00 [facility] AMMONIA 2019-12-20 14:41:00 [place] [facility] BLOOD GAS, ARTERIAL 2019-12-20 14:28:00 [place] [facility] XR FOOT 2 VIEWS LEFT 2019-12-20 11:55:00 Annia Delgado [facility] POCT-GLUCOSE METER 2019-12-20 11:28:00 Cade [facility] POCT-GLUCOSE METER 2019-12-20 06:20:00 Cade [facility] OCCULT BLOOD, STOOL 2019-12-20 06:19:00 April, [facility] PT/APTT 2019-12-20 05:06:00 April Sakina Carrillo [facility] FIBRINOGEN 2019-12-20 05:06:[address] [facility] [place] [place] D-DIMER 2019-12-20 05:06:[address] [facility] [place] IRON, TIBC, % SAT. 2019-12-20 05:06:00 [facility] [place] Carrillo [facility] (WITHOUT FERRITIN) [facility] r VITAMIN B12 AND FOLATE 2019-12-20 05:06:00 [facility] Sakina Carrillo [facility] RETICULOCYTE COUNT 2019-12-20 05:06:00 [facility] HAPTOGLOBIN 2019-12-20 05:06:[address] [facility] [place] TSH/FREE T4 IF INDICATED 2019-12-20 05:06:00 April Sakina Iqba [facility] FERRITIN 2019-12-20 05:06:00 [facility] Sakina Carrillo [facility] ANTI-NUCLEAR ANTIBODY 2019-12-20 05:06:[address] [facility] (ROGER) [facility] KAPPA / LAMBDA LIGHT 2019-12-20 05:06:00 Sakina Chen [facility] I [facility] PROTEIN ELECTROPHORESIS, 2019-12-20 05:06:[address] [facility] PERIPHERAL BLOOD SMEAR - 2019-12-20 05:06:00 AprilSakinaba l [facility] PATHOLOGIST REVIEW [facility] r CBC W/PLT COUNT & AUTO 2019-12-20 05:06:00 Marcial Chapa [facility] COMPREHENSIVE METABOLIC 2019-12-20 05:06:[address] [facility] T4, FREE 2019-12-20 05:06:00 April Sakina Carrillo [facility] ROGER TITER AND PATTERN 2019-12-20 05:06:00 Sakina Chenbal C [facility] POCT-GLUCOSE METER 2019-12-19 20:35:00 [facility] POCT-GLUCOSE METER 2019-12-19 16:06:00 Cade Pat [facility] HEMODIALYSIS INPATIENT 2019-12-19 16:02:09 Sharri Fernando [facility] CBC W/PLT COUNT & AUTO 2019-12-19 05:35:00 Marcial Chapa [facility] BASIC METABOLIC PANEL (7) 2019-12-19 05:35:00 Marcial Chapa [facility] LACTATE DEHYDROGENASE 2019-12-19 05:35:[address] [facility] (LDH) [facility] POCT-GLUCOSE METER 2019-12-19 05:24:00 Cade Pat [facility] POCT-GLUCOSE METER 2019-12-18 21:35:00 Cade Pat [facility] POCT-GLUCOSE METER 2019-12-18 16:05:00 Cade [facility] POCT-GLUCOSE METER 2019-12-18 07:45:00 Cade [facility] POCT-GLUCOSE METER 2019-12-18 06:14:00 Cade [facility] POCT-GLUCOSE METER 2019-12-17 21:44:00 Evens Mohamudruel [facility] POCT-GLUCOSE METER 2019-12-17 17:52:00 Cade [facility] POCT-GLUCOSE METER 2019-12-17 12:22:00 Cade [facility] HEMODIALYSIS INPATIENT 2019-12-17 10:33:08 Brandie Khan [facility] POCT-GLUCOSE METER 2019-12-17 06:18:00 Cade [facility] CBC W/PLT COUNT & AUTO 2019-12-17 04:14:00 Marcial Chapa [facility] COMPREHENSIVE METABOLIC 2019-12-17 04:13:00 Marcial Chapa [facility] PANEL [facility] POCT-GLUCOSE METER 2019-12-16 20:55:00 Pat Mohamud [facility] POCT-GLUCOSE METER 2019-12-16 18:24:00 [facility] HEPATITIS B SURFACE 2019-12-16 16:02:00 [facility] ANTIBODY [facility] HEPATITIS B SURFACE 2019-12-16 16:02:00 [facility] ANTIGEN [facility] HEPATITIS C ANTIBODY 2019-12-16 [facility]ORE 2019-12-16 16:02:00 [facility] es - ANTIBODY, TOTAL [facility] POCT-GLUCOSE METER 2019-12-16 14:47:00 [facility] IR TUNNELED DIALYSIS 2019-12-16 14:26:00 Sharri Fernando [facility] CATHETER [facility] HEMODIALYSIS INPATIENT 2019-12-16 12:37:39 Bill [facility] POCT-GLUCOSE METER 2019-12-16 11:01:00 Pat Mohamud [facility] XR CHEST 1 VIEW 2019-12-16 05:55:00 Marcial Chapa [facility] PORTABLE/BEDSIDE [facility] Center POCT-GLUCOSE METER 2019-12-16 05:51:00 [facility] CBC W/PLT COUNT & AUTO 2019-12-16 04:08:00 Marcial Chapa [facility] BASIC METABOLIC PANEL (7) 2019-12-16 04:08:00 Marcial Chapa [facility] PROTHROMBIN TIME/INR 2019-12-16 04:08:00 Marcial Chapa [facility] SARS-COV2/RT-PCR ([facility] & 2019-12-16 01:45:00 Pat Mohamud [facility] Center Plan of Care Planned Activity Planned Date Details Comments Source Future Scheduled 2020-12-[address] [facility] - Test 00:00:00 examination Medical Center (regime/therapy) [code = 131147934] Future Scheduled 2020-12-[address] [facility] - Test 00:00:[address] [facility] colon (procedure) [code = 300717025] Future Scheduled 2020-03-[address] [facility] - Test 00:00:00 (12+) [code = Medical Center DEPRESSION SCREENING (12+)] Future Scheduled 2020 PNEUMOCOCCAL 65+ YRS [facility] - Test 00:00:00 (1 of 1 - Medical Center [id number]) [code = PNEUMOCOCCAL 65+ YRS (1 of 1 - [id number])] Future Scheduled 2019-11-30 INFLUENZA VACCINE (#1) [facility] Test 00:00:00 [code = INFLUENZA Medical nter VACCINE (#1)] Future Scheduled 2017-08-[address] Janna kes - Test 00:00:00 measurement [facility] Center (procedure) [code = 46828200] Future Scheduled [address] [facility] - Test 00:00:00 (procedure) [code = Medical Center 40004757] Future Scheduled [address] [facility] - Test 00:00:00 malignant neoplasm of [facility] cervix (procedure) [code = 168086494] Future Scheduled 1965 DIABETIC EYE EXAM [facility] - Test 00:00:00 [code = DIABETIC EYE Medical Center EXAM] Future Scheduled 1965 Urine screening for [facility] - Test 00:00:00 protein (procedure) Medical Center [code = 732788763] Future Scheduled [address] [facility] - Test 00:00:00 malignant neoplasm of [facility] breast (procedure) [code = 052254525] Encounters Start End Encounter Admission Attending Care Care Encounter Source Date/Time Date/Time Type Type Clinicians Facility Department ID 2020-03-28 2020-03-29 Emergency Chato Fine RUST [id number] 15:50:00 20:31:00 Maureen Terrazas [id number] [place] [id number] [place] [id number] 2018-11-17 2018-11-17 [facility] [id number] 11:30:00 11:30:00 [facility] 2018-10-06 2018-10-06 [facility] [id number] 16:14:00 16:14:00 [facility] 2018-09-28 2018-09-28 [facility] [id number] 10:30:00 10:30:00 [facility] Results Test Description Test Time Test Comments Results Result Comments Source ANAEROBIC CULTURE 2020-01-04 10:26:00 Test Item Value Reference Range Interpretation Comme nts CULTURE (BEAKER) (test code = 1095) No anaerobes isolated Tissue [id number] 10:21:00 Test Item Value Reference Range Interpretation Comments Case Report (test code Surgical Pathology = 104) Report Case: [id number] Authorizing Provider: Tala Santacruz DPM Collected: 12/30/2019 01:38 PM Ordering Location: [address] Med/Surg Received: 12/31/2019 06:52 AM Pathologist: Jovita Griffith MD Specimens: A) - Soft Tissue, Other, left 5th proximal phalanx B) - Metatarsal, Left, left 5th metatarsal DIAGNOSIS (test code = z2opmHNjHCDnd1sdDUAroE 3220) FuZzEwMzNcZnRuYmpcdWMx XZbhyxAnQDrue1EsL9ZnFe AwMFxhbnNpXGRlZmxhbmcx WQAhAFC9pcEwPCIdKFiaLH LiMNgnXc1dhXAkkPdhQlTc EYCwo5enuwIRckkmwUa3s1 pxKWTmSkD4eNLrQRjgE9ex cqYthQGiBGXrGBd9mC24BZ YncR2fhKOqOWnlqqScQtO4 GSaqNGYpGdJ1FAKbeMLaEJ KkN6bzOEWvISirGLFlAGkg kTUmIGF4kDmck6H2uVHouG WepMcvVpPyYcUaZWLQr5Cw MEs5kZkzY1GnFCXnZwD7iJ QgUGFyYWdyYXBoIEZvbnQ7 mW68TVmklcS5bJLnf8Cfp8 0df203kA9ieBUrFSP2FYXy SKAuwHAuCQHhBBG9NDMicI RyY5n1ZcNmfLAdK8C9SiBw jTEeE1E9EeBxgSOwM3H9Ix CyeHUwDWBhmOYwEc8ulTOg pDFrhf2crw11QWU3p2FwgD baZNW1VSS8EyAjBi7unQKf XQUjJI0qQyNqwDQwWVJhhr 89kSfoOKjvjhPxkP1oUaTt HKXvmVUsHXIxTI4fzPWvWN DsoF6dsenoGFIrCzJcqklb RIOuxRwkfsMkMk7qkRpvOR T8AMxsA8wgnH9gUsW7GOuo T3nzlB2xZXj4ZJbluSL5CJ VfpQ7tVC6nbiihw2rnUgIh EX6acgelj0gxHvNaRI9dgi l8m0bpRhVzZL5kfncye0wx NzIwXGhlYWRlcnkwXGZvb3 XuxuytWMCgb2GlC7FmmKfj O26pyKidY69tBIGyoUgaoJ 7byVjouT7lFqJkHjBbIQjv bFxwbGFpblxmMVxmczIwXG noytysHKLtAUinL4ngFtZf VNBfaHblZYikd8KoFNAvSR NuAmTyZI8lLs2WGSzvABBG VNCRAQZZNZKCJa4JLY7BIJ UCBSHEXL3WLGQCNC8TW1k0 ASQkbcGcWEZdDYLRGP8jD5 lGPFWJJyMMQbhZVZ6ZISLF UlRJTEFHRSBXSVRIIFNVUl PAQF8TJU7VDMWJZHLOLBAM RCBDSFJPTklDIElORkxBTU 1BVElPTlxwYXJccGFyIEIu IEJPTkUsIExFRlQgRklGVE ggTUVUQVRBUlNBTCwgQklP UFNZOlxwYXIgICAgLSBBQ1 HASTTBN9KSB49LJArNVQgA IFxwYXIgICAgLSBTRVBBUk ZKHHKZBjKNKJEHLDPxS5Go HodIZf4KB72AZBRWLMJLCL UFB7IFVBUJFOFJITKQO2FV S4OpYV7UG3DMN2sVLLWVEG BHUkFOVUxBVElPTiBUSVNT ZSOxDd1MDHITVT0ZLASujg 80QZB1QjCox9G2MPN6MVRh NBKit6hjOCGeaQTvHxWjDo NcZnRuYmpcdWMxXGRlZmYw z4rxw989aOWwi7vgYLOqEg F7jVPgRGDuhOLsG300VSPu AEorx8jad4GyDLYxpNYtb0 K4NDYXgvzjyZf9hPkgX35g n0T4PlcaT1qbAPCgZGFxN3 GwBB4kENVeMch8CBZ0ULN8 VEIcMBJcP2ZySH1gUUDuuC YuNDf6x5grpKakSLCeXZZ3 w6fnZYcwesTfTK1gzx9ffJ l0o3jttoKlGDDiBLAuhVJU RWNjM8TljPafLe9jiKb1kD isVdsgOAH7Wqe8BV0chb41 hlc9qOfgEYDowguiAwH1WH wnNORxwhsqZWq0JVugNOPr bTF8PLIutCMgX4ChQANnLP 8nlej8FDX9AOjfNXZxKgJ8 NDBcaGVhZGVyeTcyMFxmb2 71XOJ3MxZqRS3fF9Qqo3M3 iR8fzJIbKSAelHRdCvKmAJ Xejx9jlMNwTWseo2HwPEC7 raR7lGIziNHgDPEtWmC0EQ fcHI8eqd23AHYtMLL6ik0z bGNccGdicmRyaGVhZFxwZ2 MdGVApf841OQYnM3IqSMGo w8B6qbPfGoViEBXqmDI2ha S2RENsNM8fppqgl4wfVFmr GAdcJOEcoqQ9cjY4QGOpjN DdR0ZdrN0gSZOcLU0ukvrr t7yyWHG6XZgoYLLkOGO1La QhGJUqm2Tlabd6HvFgz0Jl iVJfTLxgJ63pa759GZCvyh KjJ0ivkUOfrvhyhYDxowva OTlqjtO4QATbXEkzqgekRN NlXFsnN7mbLdHuBGKkuPig BCiot9RyEABpAFWpEzNqqE PvMDPxDnu5ZPHbyPLnFYIq OjIfZ2smasylTxIESITvh6 dfP0swtCYQuGScM1LuYQml okUkKFpcWWivYXW3YYS6Ft 49XaI6VXWxbf10 CPT Code(s) (test code b0pigFRfUXWqkQMfOrVtNK = 3357) TxCVGdy4veXVUzuDLuFuFd MzNcZnRuYmpcdWMxXGRlZm Cdv2heh350sCTna5xzIDBv BcV6hYUkIXYuhAWkP920n0 kik2ojesRrvXF4MLVpAIN0 YNluklEjpdY2GBoskVXtIw D8QHdezhIkVOcwcqElbxNp Hwa6CWAsV585MYO6cCjnt7 caYCX5AFAjPRQhBqByHi6y rWYjH974YSUlEKREECVuvR s2YVWkdfFnjvJhuETUm927 T668x5ydEBMqdaZxoSpKbi swr4mtJ337VOVqgSXkyjIm LnTpCHKgoYBtgCN2MRCcPK 5beaizSrPzRE6uvlkuDzUr NW6wixn6MgDgHJ9ywfdlUe PgMEpjJIVhkodaBPAfu4Ha roxfYF8sW5Chw8R4mG1veB RzBIEhmVRpXyGiDCOihs0t hYHqZXpgt1JyNTP0weG9iV FamTCsJGBaHZ20Lzcin0Is TzzqTJT1COBmmsBvt7Ynx6 vvJyRorkBhR2orR3OiBDKv YZMsAYNlKtEzlhFze8Hib9 EwkOQdkZe3u7kaTHAcCSPs cCwiv4hvTYE6WOQgJ5J8oN Tta3ufIGmoRKRrwQC9hwya GWhwXUIqkjY7pufuNGpcLE DgqEM6zlmnWOovVCStFyF7 amdyXCwmJTBkIQD6ARrdv7 59DER9QWfqCgdpDGetIEVg bmNvbnRccGduZGVjXHBsYW luXHBsYWluXGYwXGZzMjRc xAnhmVifxK7cLpNiIhYpZX lyKP2qAARzQ2hmwJJfAVCc LDYwK1ezWbWqaB1vnYfiGN szsoJhEJ9NV7P3NFGcrsK4 LMFiWgJ2QtbmDPLbEFkgFA EgeDJccGFyfQ== CLINICAL HISTORY (test i4ecfUZdNOYbwTEzHkWcKF code = 3356) BiIUAgg2rqFWPjiVTkYjUj MzNcZnRuYmpcdWMxXGRlZm Mme6ypv698hYPlh1qcHYKr WmT0wZNcRTBzcUTsH433k0 cxs4bvqfSsrEM3FTVxMPB1 MUddclYacjT0WHeyjWBdCt U8LRkdgtNsJXyzxvFhppYt Xss8HQUkM774IFU3xMcfb1 evUKD1UUAlPUKhZvZfPr4w jIKyM812XLPkTNYBJJVuoJ n8UKVgqpFnmjTecDHZv146 U637v2nlBDSrtoOniPsGan nya2icN449IUOjjANiqwSc FaFsAOZgkWLvtCH9ADXoLC 5yhwikMqVxIC1aycmmQdNx EB3nlqw8MgKbZJ6cfvdfWx TmVJiiJRBqvboaAVNbf1Lc dlosGY4mY7Ngw0D0jW6wfY BpZTTwrWWvGxSuCVIpiu7w iDPoWBabt2YlQHJ5jbK0iL BrtLGeXLNzSM25Xrxhn8Lh BbuvKVW6HVKirmMag6Sgu2 edFyFsynLwM3tbV5DrGSGl RTHlXLQiLeWjszGzx0Zuf8 HsuVZbfZb6f0vlNFLwIZIt pRtag3leQZD0RQXkX6N5uN Fvc4heSCsgAMItfHG9guvo OJwbACIewmW6aociHNnhXG YdxEG5gswlUYfvYJOdIkK2 cvxhCHqkNOZaBOF3BStyq4 12OEZ9PCucOmysJQhrVGFy bmNvbnRccGduZGVjXHBsYW luXHBsYWluXGYwXGZzMjRc cFjwkXmhgL8uIvBsCsOdDO rjPZ3aZSAaE8temMYpWLWb LRBtJ2kbMnLnqP0xyBuiNI ebbxPaTE7tfANiiUbogNp1 lYJtg3DurWUpqSS4qPosjH T8UHAhhoYokIdwqClzGWMy q5TsNlubOIOsaoGyZBAwBE RccGFyfQ== SPECIMEN SOURCE (test q5uvmBTzSLPwtQJsNcOyIW code = 3377) YqQFPwj3nnPHBixCBsPhYe MzNcZnRuYmpcdWMxXGRlZm Ete5eyw383jXZdq7bbLBZp MdV8bFQxFPKxlNIqB910y7 bpc7rbooJmxSC2QZKtIHW4 PGqjvoTwmhI6TTzqaTRkMs K6EYnnoyUiJWztfcUyoaDj Bwq2XDJvW232ECM4lSwrq2 zfFEB7MFAlLYMmRxOjQu7u mRAwJ784RBFnEXXEVLViyW g0ERHjjwDfktVgnSNFk008 N277j7unDVRnlwPnpNaPxa jpb2xkQ251FYZdgOQxqhZi KzWoMMVecLRvsIN7GGZoJH 1eyfafZuBjUD9sibmyPlCe FG1rpqj3OeRwAB8zcbjoGl QkOTsrASCsubljGMTuk3It wuwoNY0bX4Wag5L5xU6paD QtLZIcfFGgFsPlTRRxzq1m fZIqABijq9WbSNN1dfF8lY HdsVOnZTKoLR45Maqav9Le VdkyZBH9KHWjvvArw2Ldu9 stOzUvvgKfD3lcQ5DnWKUp OMNoOIRbVkTcfgHzq4Tlr6 BbiDGzdQh6h8gsKTEtPNNx iDjui1knRMU3LLZdA1X9rS Ljp1sjIGlbGKPibGB3yfzo DSghMNOqkhJ2ytmaVIzrIC HtzMC6tigkZUzyQJGcCfN6 brylNQnuVMWwUTS5AGmdh7 29YXB1DBcjDgymCVtzABMf bmNvbnRccGduZGVjXHBsYW luXHBsYWluXGYwXGZzMjRc yQcjtVxgeX0yZwNvErLiZJ jnSL0oAPCdK6hcuHRvPXEp ITAuT6odJxVsgV8wpMccBE xmczIwIEEuIExlZnQgNXRo HUUdo3wkaDMqWRTbPYdtdl aoFDVfMUwpPdTbXCAcCR8p cBT1QAFeUQdoGUExjh5= GROSS DESCRIPTION (test w0yaoSCuVTPhfXFlTcCzUQ code = 3360) UlKZClt1pmOZRtqKOxElTr MzNcZnRuYmpcdWMxXGRlZm Iqh6bxq381gEWaw0cwURHc YnV2hWEcHCJknVKtW554PX WpFIncq9fxg2KnNVXdfZTb h4U3VRDXwwmsaZj0fSdiE5 9qd1O4YohmD7ydDQJqHZBk C5BcRI6oGYDnFnq8TLX6LV X7QEYcBPIkK6OzSV8jMFZl qTUdRLz0o1xqzBkhWPGmPS O2y5myHSjwkcBrXH1tvd3t iCe9m0xzjqMkRQFiCWOegJ HLQVXxN0DruGpjLc8zsHi3 wPeiWiiePBS8Eqr9CA8qgy 80asa0cUdpOTVhemcdAvF5 GEdiKBAfguhgPBi8VXmeAW JnbDcyMFxtYXJncjcyMFxt YXJndDcyMFxtYXJnYjcyMF trMYHjYUF3IFjsr833HNZ8 CNskj1mnp6smdGJwUrv0PD EjYiRiHxinPUrel9Tjs7hu GKLhhy0bRNB5mUJtrQonc3 T1eBIsLXBqlTAqsmEnIGPk VzQ0RQyyCY0pqn34BXKaPA M8dt4gcXXqqCxkomQacGBn GPlkP9OuXQMwm262UDKsJ0 PlLUXls1I5qfXuAxOjGLTn rSJ6gbM8HQHfRAd1iNFptv Z3boHwwTFeZ1yeqM81IuLn oUPnS7AevY06DeDfpSEtQ8 AufS81InYbeANiF3GcaP81 MdIpsVCcOHNqlHSfNy4srS RwiGUom3ItvUQoQEmoM21p e777MFCkllXnJ6nqnKUuwg vyxXSpoaxqZMuaamC0FJJx XHBsYWluXGYwXGZzMjBcbG FuZzEwMzNcaGljaFxmMFxk FaOqMMZmEShkA0sgNuNjGr JdUHCHqYTpxZ8zvsLEMIzz HORtV4KpmjOeMPziGVYwrJ B6iZLcAGjsTtKdXFDzw3k8 yOC4mHMhxKE1rXKauBezVM 1bsHPoZG2xFP7qFVknUVdo frMzz1SbJL79oHOglwTkcu QgZGVzaWduYXRlZCBhcyAi l77tkIQ0aZLddVFfOU31sE MpRppoX02rx7wwrXYrh4Cx p7bllEGorLIhzE96TZXehy VvQdLcB36tkbKyCX4cBLU7 cmluZyAwLjcgeCAwLjMgeC IiKtWfW30pBJRhOLVbdSGz qW3etaPxnoKikXEbkUC7XW LiGD62eAIybYndpH14xwIA SJGguuLarP43qkJdHFWaqA Gdh6e6dHvqcc1qqXAnGFBd skCApPJxnV2iegUMXNywGU SaH1GswdRbOJspVFPbyHQ4 gDYjDHleUrYyDXFja8z5bF P0pFIhfQN6iSQbeZyzOP6b mCIeIF9cBB7nJQneALqjll Fvn5NyIN86nSLqjyZrxrQl ZGVzaWduYXRlZCBhcyAibW J5MQMhtvXvaPEaDYC6Upxm P56ht0tppSRyr7YsUs74mg KbUTKjMaRru89jwHbhk9Ph ZVJdDYZdh17fZWRwSXfgDG 25dzMiGUFngBCegbaoBw3m SAnmHZ45AUfwUL33AYHcEI qdMLDvV2GnP4N9MM3zwJkk IHNwZWNpbWVuIGlzIGVudG reYZy3AKuczRWlzgaoOHdh czIwXGxhbmcxMDMzXGhpY2 ojOhIdQORugLoqRDulp3Fo TKBsGNWwEgBwIkMaKC3kGO xhrL0vXYCvMTvrf51nyOQp r34uRWDlCWalWQIaEFXpYc BcbGFuZzEwMzNcaGljaFxm KXcvMyZaTGKpQKjkF2rgPq BcZnMyMCAgTUcvZXdccGFy fQ== MICROSCOPIC DESCRIPTION s7mbfFPcCMZdyCEuImZzEA (test code = 3371) CnAVQic6oaOPHjcMJuUzXg MzNcZnRuYmpcdWMxXGRlZm Vvm6pto098fYYbp2ilPEWh EeJ8vKAkFROvbMCpH946w5 cvl6rktaNnnHQ8GVJwBLP3 NFaaknBgyoB9PKqlrHTtGl C6BCoyusUrBNsqivGtuxKf Rew9ODWuX873RLX6aXuye4 uvNNI5ATIdUESzAbBdPc9v rBKzY466CAOtUHMGAAAqbV c5HIIuowWliwPzaEAPd669 J462s1wxNZZhppJmsHsBxi pfk5ayN009RVQesQHzeoQj BnEjYJMtnRGelGC4GBArFM 1xrkbyNjUsJR7opnalKnGt TS7jeze6WbDmOC1kxcacBm IkTMzjHMRfyqduNRNps9Bl zmbsKW5kY2Bbh8T0hF7dmB PvFBYhzEVmJpHvIQMhkm9l aQEyWHpdz2SfZCE7zfC2pW RukQSrAQTvCK01Hxxob6Zi QxuqRBD9DYYuxhWlw2Ids3 kdTxQdgoGuB2cmO6DdTOAm JCDkPKHgFyGihjNxd1Szw2 GayFLaeMh4e7kdYWXoFYKe lTxbb9ooBIY4SIRtC3G1rP Ixe7ndBPvgBXJymYQ5bxgo XAccJRDzpcO7kslcAJolPW AqdVA8zfduVTdcTDMoSwM2 wkxfXIflLCIhHJU2PDxoo3 29MGX1QWhkEbtdITbwSGGh bmNvbnRccGduZGVjXHBsYW luXHBsYWluXGYwXGZzMjRc bDygvXtlyV9xJuOsEgBcKC vtSA6oLPLqA9menKMzJWLw BTNeY8chLkYamL2ukLhrJD qewwCxTRNbNr1kCOZkGu8j bWVkLlxwYXJ9 Gross assessment was [facility] performed at ([facility], Department = 2777) of Pathology, [address] [place] [address], Technical component was [facility] performed at ([facility], = 2778) Department of Pathology, [address] [place] [address], Professional component [facility] was performed at ([facility], Department code = 2779) of Pathology, [address] [place] [address], [facility] [id number] 10:21:00Surgical Pathology Report Case: [id number] Authorizing Provider: Tala Santacruz DPM Collected: 12/30/2019 01:38 PM Ordering Location: [address] Med/Surg Received: 12/31/2019 06:52 AM Pathologist: [...] TISSUE FORMATION Signing Pathologist Direct Phone Line: [phone] signed by Jovita Griffith MD on 01/04/2020 at 10:21 AMMG/[id number] of left 5th metatarsal, ulcer of bilateral [...] and into decal solution. MG/Veronica-B. Performed.[facility], Department of Pathology, [address] [place] [address], [facility], Department of Pathology, [address] [place] [address], [facility], [facility] of [facility], [address] [place] [address], VJLXAUIJT [id number] 10:47:00 Test Item Value Reference Interpretation Comments [...] negative Staphylococcus SURGICALLY OBTAINED CULTURE + GRAM [id number] 08:31:00 Test Item Value Reference Range Interpretation Comments CULTURE (BEAKER) (test code No growth = 1095) GRAM STAIN RESULT (BEAKER) <1+ WBCs (test code = 1123) GRAM STAIN RESULT (BEAKER) No organisms seen (test code = 52336) SURGICALLY OBTAINED CULTURE + GRAM [id number] 08:19:00 Test Item Value Reference Interpretation Comments Range CULTURE (BEAKER) STENOTROPHOMONAS A 2+ Sten otrophomonas (test code = 1095) MALTOPHILIA maltophil ia Levofloxacin (test S code = 22) Trimethoprim + S Sulfamethoxazole (test code = 47) GRAM STAIN RESULT <1+ WBCs (BEAKER) (test code = 1123) GRAM STAIN RESULT No organisms seen (BEAKER) (test code = 079190) POC-Glucose [id number] 06:47:00 Test Item Value Reference Range Interpretation Comments POC-Glucose Meter (test 102 mg/dL 70-110 : TE STED AT [facility] code = 1538) [address] [place] [address]: Psych Therapist/Techni artemio ID = [id number] for Anne Salgado Lab Interpretation (test Normal code = 29095-1) [facility] [id number] 06:47:00 Test Item Value Reference Range Interpretation Comments POC-GLUCOSE METER 102 mg/dL 70-110 : TESTED A T [address] (BEAKER) (test code [address], = 1538) [facility] [place] [address]: Psych Therapist/Techni artemio ID = [id number] for Anne Busby Comprehensive metabolic [id number] 06:34:00 Test Item Value Reference Range Interpretation Comments Protein, Total (test 6.1 See_Comment [Autom ated code = 2885-2) message] The system which generated this result transmit merna reference range : 6.0 - 8.5 gm/dL . The reference range was not u sed to interpret th is result as normal/abnormal . Albumin (test code = 2.3 g/dL 3.5-5 L 53316-1) Alkaline Phosphatase 81 U/L 30-115 (test code = 6768-6) Total Bilirubin (test 0.4 mg/dL 0.1-1.2 code = 1975-2) Sodium (test code = 137 meq/L 548-369 4104-2) Potassium (test code 3.7 meq/L 3.6-5.5 = 2823-3) Chloride (test code = 100 meq/L 98-106 2075-0) CO2 (test code = 28 meq/L 20-29 2028-9) BUN (test code = 14 mg/dL 10-26 3094-0) Creatinine (test code 2.31 mg/dL 0.5-1.2 H = 2160-0) Glucose (test code = 100 mg/dL 70-110 2345-7) Calcium (test code = 7.5 mg/dL 8.5-10.5 L 71409-3) AST (test code = 15 U/L 5-40 1920-8) ALT (test code = 6 U/L 5-50 1742-6) EGFR (test code = 21 mL/min/1[place]73 [place] [address]-8) NOT ACCURATE CREATININE CLEARANCE IN PREDICTING GLOMERULAR FILTRATION RATE . ESTIMATED GFR I S NOT APPLICABLE FOR DIALYSIS PATIEN ZIA (test code = ZIA) Psych Therapist ID - ADMIN Lab Interpretation Abnormal (test code = 93622-3) [facility] [id number] 06:34:00 Test Item Value Reference Range Interpretation [...] S NOT APPLICABLE FOR DIALYSIS PATIEN TS. Psych Therapist ID - ADMINCBC with platelet count + automated [id number] 06:06:00 Test Item Value Reference Range Interpretation Comments WBC (test code = 6690-2) 5.7 See_Comment [A utomated message] The system [employer] generated this result transmitted ref erence range: 4.0 - 10 .0 K/L. The refe rence range was not u sed to interpret this result as normal/abnor mal. RBC (test code = 789-8) 2.41 See_Comment L [Au tomated message] The system [employer] generated this result transmitted ref erence range: 4.00 - 5 .00 M/L. The refe rence range was not u sed to interpret this result as normal/abnor mal. MCHC (test code = 786-4) 30.8 See_Comment L [A utomated message] The system [employer] generated this result transmitted ref erence range: [...] L [Aut omated message] 777-3) The system [employer] generated this result transmitted ref erence range: 150 - 43 0 K/CU MM. The referen ce range was not u sed to interpret this result as normal/abnor mal. MPV (test code = 10.5 fL 6-11.5 76792-3) nRBC (test code = 413) 0 See_Comment [Aut omated message] The system [employer] generated this result transmitted ref erence range: [...] See_Comment [Aut omated message] 670) The system [employer] generated this result transmitted ref erence range: 1.80 - 8 .00 K/L. The refe rence range was not u sed to interpret this result as normal/abnor mal. # Lymphs (test code = 1.66 See_Comment [Auto mated message] 414) The system [employer] generated this result transmitted ref erence range: 1.48 - 4 .50 K/L. The refe rence range was not u sed to interpret this result as normal/abnor mal. # Monos (test code = 0.28 See_Comment [Autom ated message] 415) The system [employer] generated this result transmitted ref erence range: 0.00 - 1 .30 K/L. The refe rence range was not u sed to interpret this result as normal/abnor mal. # Eos (test code = 416) 0.12 See_Comment [Au tomated message] The system [employer] generated this result transmitted ref erence range: 0.00 - 0 .50 K/L. The refe rence range was not u sed to interpret this result as normal/abnor mal. # Baso (test code = 417) 0.07 See_Comment [A utomated message] The system [employer] generated this result transmitted ref erence range: 0.00 - 0 .20 K/L. The refe rence range was not u sed to interpret this result as normal/abnor mal. Immature 0 % 0-0 Granulocytes-Relative (test code = 2801) Lab Interpretation (test Abnormal code = 16826-5) [facility] W/PLT COUNT & AUTO [id number] 06:06:00 Test Item Value Reference Range Interpretation [...] PERCENT (BEAKER) (test code = 2801) POCT-GLUCOSE [id number] 21:02:00 Test Item Value Reference Range Interpretation Comments POC-GLUCOSE METER 167 mg/dL 70-110 H : TESTED A T [address] (BEAKER) (test code [facility] [address], = 1538) [place] [address]: Psych Therapist/Techni artemio ID = [id number] for Ashley austin Anne POCT-GLUCOSE [id number] 18:12:00 Test Item Value Reference Range Interpretation Comments POC-GLUCOSE METER 121 mg/dL 70-110 H : TESTED A T [address] (BEAKER) (test code [facility], = 1538) [place] [address]: Psych Therapist/Techni artemio ID = [id number] for Cortney Cohen POCT-GLUCOSE [id number] 11:54:00 Test Item Value Reference Range Interpretation Comments POC-GLUCOSE METER 117 mg/dL 70-110 H : TESTED A T [facility] (BEAKER) (test code [address], = 1538) [facility] [place] [address]: Psych Therapist/Techni artemio ID = [id number] for Cortney Cohen COMPREHENSIVE METABOLIC [id number] 06:47:00 Test Item Value Reference Range Interpretation [...] S NOT APPLICABLE FOR DIALYSIS PATIEN TS. Psych Therapist ID - [id number] 06:42:00 Test Item Value Reference Range Interpretation Comments Magnesium (test code = 1.6 mg/dL 1.5-3 13814-6) ZIA (test code = ZIA) Psych Therapist ID - ADMIN Lab Interpretation (test Normal code = 40850-1) [facility] [id number] 06:42:00 Test Item Value Reference Range Interpretation Comments POC-GLUCOSE METER 101 mg/dL 70-110 : TESTED A T [facility] (BEAKER) (test code [address], = 1538) [facility] [place] [address]: Psych Therapist/Techni artemio ID = [id number] for Anne Busby [id number] 06:42:00 Test Item Value Reference Range Interpretation Comments MAGNESIUM (BEAKER) (test code = 1.6 mg/dL 1.5-3.0 627) Psych Therapist ID - ADMINCBC W/PLT COUNT & AUTO [id number] 06:37:00 Test Item Value Reference Range Interpretation [...] PERCENT (BEAKER) (test code = 2801) POCT-GLUCOSE [id number] 20:24:00 Test Item Value Reference Range Interpretation Comments POC-GLUCOSE METER 155 mg/dL 70-110 H : TESTED A T [facility] 1317 (BEAKER) (test code [facility] NT [facility], = 1538) [facility] [address]: Psych Therapist/Techni artemio ID = [id number] for Anne Busby POCT-GLUCOSE [id number] 16:39:00 Test Item Value Reference Range Interpretation Comments POC-GLUCOSE METER 164 mg/dL 70-110 H : Notified RN/MD: TESTED (BEAKER) (test code AT [facility] [address] = 1538) [facility] [address]: Psych Therapist/Techni artemio ID = [id number] for Alondra Kelley SARS-CoV2/RT-PCR (Asymptomatic ONLY)2019-12-30 15:57:00 Test Item Value Reference Range Interpretation Comments SARS-COV2/RT-PCR Negative Not Detected, (test code = Negative, See 97414-7) external report for linked test SARS-COV-2 [facility] (test code = 32504-0) ZIA (test code = Negative result for [...] of the Act. Fact Sheet for Healthcare Providers:https://www.[employer]/sites/default/f loco/product/documents/F act_Sheet_HC_Providers_L eor_SSRN-TvI-0.pdf Fact Sheet for Healthcare Patients:https://www.[employer]/sites/default/fi les/product/documents/Fa ct_Sheet_Patients_Lyra_S ARS-CoV-2.pdf Performing Laboratory:[facility] [place] [address] [facility])2019-12-30 15:57:00 Test Item Value Reference Range Interpretation Comments SARS-COV2/RT-PCR (test Negative Not Detected, Negative, code = 8575848) See external report for linked test SARS-COV-[address] [facility] (test code = 7866504) Negative result for this test determines that [...] 564(g) of the Act.Fact Sheet for Healthcare Providers:https://www.[employer]/sites/default/files/product/documents/Fact_Shee y_NG_Kxlniydxw_Htrn_SATH-UaZ-8.pdfFact Sheet for Healthcare Patients:https://www.[employer]/sites/default/files/product/ documents/Jrhn_Cswsk_Ujgttklf_Wkzn_WKCL-PoV-8.pdfPerforming Laboratory:[facility], [place] [address]FJFF-SAWBICL METER 2019-12-30 11:50:00 Test Item Value Reference Range Interpretation Comments POC-GLUCOSE METER 82 mg/dL 70-110 : Notified RN/MD: TESTED (ROBERT) (test code = AT [facility] [address] [place] [address]) [facility] [address]: Psych Therapist/Techni artemio ID = [id number] for Alondra Kelley WOUND CULTURE + GRAM [id number] 10:45:00 Test Item Value Reference Interpretation Comments [...] gram negative (BEAKER) (test code rods = 142709) POCT-GLUCOSE [id number] 05:50:00 Test Item Value Reference Range Interpretation Comments POC-GLUCOSE METER 103 mg/dL 70-110 : Notified RN/MD: TESTED (BEAKER) (test code AT [place] [address] [address] = 1538) [facility] [address]: Psych Therapist/Techni artemio ID = [id number] for Zonia Healy COMPREHENSIVE METABOLIC [id number] 05:44:00 Test Item Value Reference Range Interpretation [...] S NOT APPLICABLE FOR DIALYSIS PATIEN TS. Psych Therapist ID - ADMINCBC W/PLT COUNT & AUTO [id number] 05:29:00 Test Item Value Reference Range Interpretation [...] PERCENT (BEAKER) (test code = 2801) POCT-GLUCOSE [id number] 21:21:00 Test Item Value Reference Range Interpretation Comments POC-GLUCOSE METER 185 mg/dL 70-110 H : Notified RN/MD: TESTED (BEAKER) (test code AT [facility] [address] [address] = 1538) [place] [address]: Psych Therapist/Techni artemio ID = [id number] for Zonia Healy POCT-GLUCOSE [id number] 11:21:00 Test Item Value Reference Range Interpretation Comments POC-GLUCOSE METER 143 mg/dL 70-110 H : Notified RN/MD: TESTED (BEAKER) (test code AT [facility] [address] [address] = 1538) [place] [address]: Psych Therapist/Techni artemio ID = [id number] for Alondra Kelley COMPREHENSIVE METABOLIC [id number] 06:27:00 Test Item Value Reference Range Interpretation [...] S NOT APPLICABLE FOR DIALYSIS PATIISA TS. Psych Therapist ID - ADMINPOCT-GLUCOSE [id number] 06:21:00 Test Item Value Reference Range Interpretation Comments POC-GLUCOSE METER 73 mg/dL 70-110 : Notified RN/MD: TESTED (BEAKER) (test code = AT [facility] [address]) [facility] [address]: Psych Therapist/Techni artemio ID = [id number] for Zonia Healy CBC W/PLT COUNT & AUTO [id number] 06:00:00 Test Item Value Reference Range Interpretation [...] PERCENT (BEAKER) (test code = 2801) POCT-GLUCOSE [id number] 20:48:00 Test Item Value Reference Range Interpretation Comments POC-GLUCOSE METER 84 mg/dL 70-110 : Notified RN/MD: TESTED (BEAKER) (test code = AT [facility] [address]) [facility] [address]: Psych Therapist/Techni artemio ID = [id number] for Zonia Healy POCT-GLUCOSE [id number] 17:51:00 Test Item Value Reference Range Interpretation Comments POC-GLUCOSE METER 59 mg/dL 70-110 L : TESTED A T [facility] ([facility]) (test code = [address], [address]) [place] [address]: Psych Therapist/Techni artemio ID = [id number] for Christina Lea osbornee POCT-GLUCOSE [id number] 13:28:00 Test Item Value Reference Range Interpretation Comments POC-GLUCOSE METER 67 mg/dL 70-110 L : TESTED A T [facility] [address] (BEAKER) (test code = [address], 1538) [place] [address]: Psych Therapist/Techni artemio ID = [id number] for Christina r, Berta POCT-GLUCOSE [id number] 06:04:00 Test Item Value Reference Range Interpretation Comments POC-GLUCOSE METER 94 mg/dL 70-110 : TESTED A T [facility] [address] (BEAKER) (test code = [address], 1538) [place] [address]: Psych Therapist/Techni artemio ID = [id number] for Anahi Sherman COMPREHENSIVE METABOLIC [id number] 05:35:00 Test Item Value Reference Range Interpretation [...] S NOT APPLICABLE FOR DIALYSIS PATIEN TS. Psych Therapist ID - ADMINCBC W/PLT COUNT & AUTO [id number] 04:56:00 Test Item Value Reference Range Interpretation [...] PERCENT (BEAKER) (test code = 2801) POCT-GLUCOSE [id number] 20:43:00 Test Item Value Reference Range Interpretation Comments POC-GLUCOSE METER 137 mg/dL 70-110 H : TESTED A T [facility] [address] (BEAKER) (test code [address], = 1538) [facility] [address]: Psych Therapist/Techni artemio ID = [id number] for Anahi Sherman MR, EXTREMITY, LOWER, WITHOUT CONTRAST, [id number] 16:55:00MRI LEFT FOOT.Unlisted Reason for Exam - [...] 16:55:07 Reading Location: [facility] Radiology Reading Room MR lower extremity without IV contrast left [id number] 16:55:00Interface, External Ris In - 12/27/2019 4:57 [...] Ring Verified Date/Time: 12/27/2019 16:55:07 Reading Location: [facility] Radiology Reading Room Electronically signed by: Adrienne CHU 12/27/2019 04:55 [facility] [id number] 14:19:00 Test Item Value Reference Range Interpretation Comments POC-GLUCOSE METER 232 mg/dL 70-110 H : TESTED A T [facility] 1317 (BEAKER) (test code [address], = 1538) [facility] 77 478: Psych Therapist/Techni artemio ID = [id number] for Christina rBerta CT, CTA AAA, W/ GÓMEZ.EXT.KTGZRZ7332-12-01 11:38:00Bilateral lower extremities Addendum BeginsREPORT STATUS:A I agree with the nonvascular findings with exceptions and emphasis as below:*Moderate right and small left pleural effusions are partially visualized.*Large volume ascites.*Diffuse anasarca*The reflux of contrast into the hepatic veins is concerning for volume overload. Signed: Molly Linares MDRtieraort Verified Date/Time: 12/27/2019 11:38:28 Reading Location: [facility] Diagnostic Imaging Reading Room - [facility] F1 [address] EndsFINAL REPORT CT angiography of the abdominal aorta and runoff, 26-Dec-19 INDICATION: This is a 64 year old female with with lower leg penetrating trauma presents for assessment. TECHNIQUE: Spiral acquisition before and during intravenous contrast administration using a [employer]here ([employer] multidetector CT scanner. Images were obtained before [...] identified. However, significant calcification identified of the [place] left SFA, for example at image 516, [...] the right popliteal artery is patent, with odls-ys-yedgflbs diffuse calcification identified with no obstructive lesion [...] However, in the distal left SFA, the [place] artery substantial calcification identified and the stent [...] atherosclerosis identified. 4. In the right, the [place] right SFA is not filled by contrast [...] dictated regarding the non-vascular findings by the Java Mobile Developer Radiologist. Signed: Shlomo Dockery MDReport Verified Date/Time: 12/27/2019 07:59:51 Reading Location: [place] [address] [address] Reading Room Protein electrophoresis, serum 2019-12-27 [...] as normal/abnormal . ZIA (test code = Psych Therapist ID - ZIA) LEONIE Jay Lab Interpretation Abnormal (test code = 74337-8) [facility]ES[facility], [id number] 09:29:00 Test Item Value Reference Range Interpretation [...] chronic inflammatory response. No monoclonal bands detected. [id number] Rocio Galindo MD (BEAKER) (test code = (electronic signature) 2616) PROTEIN TOTAL SERUM, 6.3 gm/dL 6.0-8.3 SPEP (ROBERT) (test code = 2660) Psych Therapist ID - LEONIE OLIVEIRA AAA and [id number] 07:59:00Interface, External Ris In - 12/27/2019 11:40 AM CDTAddendum BeginsREPORT STATUS:A I agree with the nonvascular findings with exceptions and emphasis as below:*Moderate right andsmall left pleural effusions are partially visualized.*Large volume ascites.*Diffuse anasarca*The reflux of contrast into the hepatic veins is concerning for volume overload. Signed: Junior Linaresy MDReport Verified Date/Time: 12/27/2019 11:38:28 Reading Location: [facility] Diagnostic Imaging Reading Room - [place] [address] [address] angiography of the abdominal aorta and runoff, 26-Dec-19 INDICATION: This is a 64 year old female with with lower leg penetrating trauma presents for assessment. TECHNIQUE: Spiral acquisition before and during intravenous contrast administration using a [employer] multidetector CT scanner. Images were obtained before [...] identified. However, significant calcification identified of the [place] left SFA, for example at image 516, [...] the right popliteal artery is patent, with ekie-gh-zbzpbzdq diffuse calcification identified with no obstructive lesion [...] However, in the distal left SFA, the [place] artery substantial calcification identified and the stent [...] atherosclerosis identified. 4. In the right, the [place] right SFA is not filled by contrast [...] dictated regarding the non-vascular findings by the Java Mobile Developer Radiologist. Signed: Shlomo Dockery MDReport Verified Date/Time: 12/27/2019 07:59:51 Reading Location: [place] [address] [address] Reading Room [facility] [id number] 06:56:00 Test Item Value Reference Range Interpretation Comments POC-GLUCOSE METER 39 mg/dL 70-110 LL : Notified RN/: [facility] (test code = AT [facility] [address] [facility] 1538) [facility] [address]: Psych Therapist/Techni artemio ID = [id number] for Anahi Sherman COMPREHENSIVE METABOLIC [id number] 06:15:00 Test Item Value Reference Range Interpretation [...] S NOT APPLICABLE FOR DIALYSIS PATIEN TS. Psych Therapist ID - ADMINPOCT-GLUCOSE [id number] 06:01:00 Test Item Value Reference Range Interpretation Comments POC-GLUCOSE METER 55 mg/dL 70-110 L : Notified RN/MD: TESTED (BEAKER) (test code = AT SLS L [address] [facility] 1538) [facility] [address]: Psych Therapist/Techni artemio ID = [id number] for Anaih Sherman CBC W/PLT COUNT & AUTO [id number] 05:44:00 Test Item Value Reference Range Interpretation [...] PERCENT (BEAKER) (test code = 2801) POCT-GLUCOSE [id number] 21:03:00 Test Item Value Reference Range Interpretation Comments POC-GLUCOSE METER 278 mg/dL 70-110 H : Notified RN/MD: TESTED (BEAKER) (test code AT [address] = 1538) [facility] [address]: Psych Therapist/Techni artemio ID = [id number] for Anahi Sherman POCT-GLUCOSE [id number] 16:53:00 Test Item Value Reference Range Interpretation Comments POC-GLUCOSE METER 70 mg/dL 70-110 : TESTED A T [facility] [address] (BEAKER) (test code = [address], 15[address]) [place] [address]: Psych Therapist/Techni artemio ID = [id number] for Nalini Jean Baptiste POCT-GLUCOSE [id number] 12:11:00 Test Item Value Reference Range Interpretation Comments POC-GLUCOSE METER 97 mg/dL 70-110 : TESTED A T [facility] [address] (BEAKER) (test code = [address], 1538) [place] [address]: Psych Therapist/Techni artemio ID = [id number] for Nalini Jean Baptiste POCT-GLUCOSE [id number] 06:21:00 Test Item Value Reference Range Interpretation Comments POC-GLUCOSE METER 71 mg/dL 70-110 : TESTED A T [facility] [address] (BEAKER) (test code = [address], 1538) [place] [address]78: Psych Therapist/Techni artemio ID = [id number] for Holly Alamo COMPREHENSIVE METABOLIC [id number] 05:50:00 Test Item Value Reference Range Interpretation [...] S NOT APPLICABLE FOR DIALYSIS PATIEN TS. Psych Therapist ID - ADMINCBC W/PLT COUNT & AUTO [id number] 05:17:00 Test Item Value Reference Range Interpretation [...] (BEAKER) (test code = 2801) Prepare Leuko-Red [id number] 23:54:00 Test Item Value Reference Range Interpretation Comments CROSSMATCH (test code = 2264) COMPATIBLE Unit ABO (test code = O Pos 8118704) UNIT NUMBER (test code = [id number] 934-0) Status (test code = 7720387) [facility] Blood Bank Product (test code RED BLOOD CELLS = 2263) PRODUCT CODE (test code = F6569N96 933-2) [facility] [id number] 21:03:00 Test Item Value Reference Range Interpretation Comments POC-GLUCOSE METER 87 mg/dL 70-110 : TESTED A T [facility] [address] (BEAKER) (test code = [address], 1538) [place] [address]: Psych Therapist/Techni artemio ID = [id number] for Nwad iufu, Holly POCT-GLUCOSE [id number] 17:12:00 Test Item Value Reference Range Interpretation Comments POC-GLUCOSE METER 79 mg/dL 70-110 : TESTED A T [facility] [address] (BEAKER) (test code = [address], 1538) [place] [address]: Psych Therapist/Techni artemio ID = [id number] for Akhil rs, Rachelleea POCT-GLUCOSE [id number] 11:37:00 Test Item Value Reference Range Interpretation Comments POC-GLUCOSE METER 262 mg/dL 70-110 H : TESTED A T [facility] [address] (BEAKER) (test code [address], = 1538) [facility] [place] 77 [address]: Psych Therapist/Techni artemio ID = [id number] for Nalini Jean Baptiste COMPREHENSIVE METABOLIC [id number] 06:29:00 Test Item Value Reference Range Interpretation [...] S NOT APPLICABLE FOR DIALYSIS PATIEN TS. Psych Therapist ID - ADMINCBC W/PLT COUNT & AUTO [id number] 06:12:00 Test Item Value Reference Range Interpretation [...] PERCENT (BEAKER) (test code = 2801) POCT-GLUCOSE [id number] 06:09:00 Test Item Value Reference Range Interpretation Comments POC-GLUCOSE METER 83 mg/dL 70-110 : Notified RN/MD: TESTED (BEAKER) (test code = AT [address]) [facility] [address]: Psych Therapist/Techni artemio ID = [id number] for Anahi Sherman POCT-GLUCOSE [id number] 16:26:00 Test Item Value Reference Range Interpretation Comments POC-GLUCOSE METER 182 mg/dL 70-110 H : Notified RN/MD: TESTED (BEAKER) (test code AT [facility] [address] = 1538) [facility] [address]: Psych Therapist/Techni artemio ID = [id number] for Alondra Kelley, [id number] 09:17:00 Test Item Value Reference Range Interpretation Comments Rh Factor (test code = POS 2589) ABO Grouping (test code O PINK TOP 12/24/19 @ 08 = 2588) [facility] Hospital[facility] and screen, [id number] 07:31:00 Test Item Value Reference Range Interpretation Comments ABO/RH AUTOMATED (BEAKER) (test O POSITIVE ECHO code = 2260) Ab Scrn (test code = 890-4) NEGATIVE ECHO [facility] HospitalCOMPRE[facility]ENSIVE MET[facility]OLIC [id number] 06:42:00 Test Item Value Reference Range Interpretation [...] S NOT APPLICABLE FOR DIALYSIS PATIEN TS. Psych Therapist ID - ADMINPOCT-GLUCOSE [id number] 06:23:00 Test Item Value Reference Range Interpretation Comments POC-GLUCOSE METER 88 mg/dL 70-110 : TESTED A T [facility] [address] (BEAKER) (test code = [address], 1538) [facility] 77 478: Psych Therapist/Techni artemio ID = [id number] for Anne Busby CBC W/PLT COUNT & AUTO [id number] 06:23:00 Test Item Value Reference Range Interpretation [...] PERCENT (BEAKER) (test code = 2801) POCT-GLUCOSE [id number] 21:38:00 Test Item Value Reference Range Interpretation Comments POC-GLUCOSE METER 126 mg/dL 70-110 H : TESTED A T [facility] 1317 (BEAKER) (test code [address] [facility] [address], = 1538) [facility] 77 478: Psych Therapist/Techni artemio ID = [id number] for Anne Busby POCT-GLUCOSE [id number] 16:54:00 Test Item Value Reference Range Interpretation Comments POC-GLUCOSE METER 89 mg/dL 70-110 : Notified RN/MD: TESTED (BEAKER) (test code = AT [address]) [facility], [facility] [address]: Psych Therapist/Techni artemio ID = [id number] for Alondra Kelley MR, EXTREMITY, LOWER, JOINT, WITHOUT CONTRAST, [id number] 16:10:00Unlisted Reason for Exam - Click Yes [...] Jordan Verified Date/Time: 12/23/2019 16:10:32 Reading Location: [address] Ortho Consult Reading Room MR lower extremity joint only without IV contrast left [id number] 16:10:00Interface, External Ris In - 12/23/2019 4:12 [...] Jordan Verified Date/Time: 12/23/2019 16:10:32 Reading Location: [facility] C013X Ortho Consult [facility], WITHOUT [id number] 15:43:00Unlisted Reason for Exam - Click Yes [...] Date/Time: 12/23/2019 15:43:24 MR brain without IV [id number] 15:43:00Interface, External Ris In - 12/23/2019 3:45 [...] Signed: Berta Muniz Verified Date/Time: 12/23/2019 15:43:24 [facility])2019-12-23 14:16:00 Test Item Value Reference Range Interpretation Comments SARS-COV2/RT-PCR (test Negative Not Detected, Negative, code = 1226121) See external report for linked test SARS-COV-2 PERFORMING LAB [facility] (test code = 3630095) Negative result for this test determines that [...] 564(g) of the Act.Fact Sheet for Healthcare Providers:https://www.[employer]/sites/default/files/product/documents/Fact_Shee b_TL_Nesngxssk_Fuuy_JSOM-TnT-0.pdfFact Sheet for Healthcare Patients:https://www.[employer]/sites/default/files/product/ documents/Ydkd_Bgqnc_Rdebctge_Dcmo_XPGA-VyE-5.pdfPerforming Laboratory:[facility], [place] [address]Kxluo / lambda light chains, [id number] 12:25:00 Test Item Value Reference Interpretation Comments Range Martin Lt Chain,Free 474.4 mg/L 3.3-19.4 H (test code = 43262-8) Lambda Lt 225.6 mg/L 5.7-26.3 H Chain,Free (test code = 25841-5) Martin/Lambda,Free 2.1 0.26-1.65 H Free annabelle a/lambda (test code = ratio in serum of 3763289) normal individu als is 0.26-1.65. Excessproductio n [...] (test code = Performing Lab ZIA) EZ [facility] [address] [place] [address] Jaguar Stein MD, PhD, CORI Lab Interpretation Abnormal (test code = 08901-7) [facility]PO[facility] [id number] 11:27:00 Test Item Value Reference Range Interpretation Comments POC-GLUCOSE METER 189 mg/dL 70-110 H : Notified RN/MD: TESTED (ROBERT) (test code AT [facility] [address] [address] = 1538) JAYNAJoe [facility] [address]: Psych Therapist/Techni artemio ID = [id number] for Alondra Kelley ARTERIAL DOPPLER LEGS, [id number] 11:22:00Reason for exam:->non healing ulcer , non [...] MDReport Verified Date/Time: 12/23/2019 11:22:31 Reading Location: [facility] Radiology Reading Room Arterial Doppler Legs [id number] 11:22:00 Interface, External Ris In - 12/23/2019 [...] MDReport Verified Date/Time: 12/23/2019 11:22:31 Reading Location: [facility] Radiology Reading Room [facility] CenterCOMPRE[facility]ENSIVE MET[facility]OL[facility] [id number] 04:44:00 Test Item Value Reference Range Interpretation [...] S NOT APPLICABLE FOR DIALYSIS PATIEN TS. Psych Therapist ID - ADMINCBC W/PLT COUNT & AUTO [id number] 04:35:00 Test Item Value Reference Range Interpretation [...] H PERCENT (BEAKER) (test code = 2801) [id number] 04:29:00 Test Item Value Reference Range Interpretation Comments Ammonia (test code = 36 See_Comment [Autom ated 04220-6) message] The system which generated this result transmit merna reference range : 17 - 80 mol/L . The reference range was not u sed to interpret th is result as normal/abnormal . ZIA (test code = ZIA) Psych Therapist ID - ADMIN Lab Interpretation Normal (test code = 77614-8) [facility] HospitalAMMONIA2020-09-24 04:29:00 Test Item Value Reference Range Interpretation Comments AMMONIA (BEAKER) (test code = 348) 36 mol/L 17-80 Psych Therapist ID - ADMINPOCT-GLUCOSE [id number] 20:45:00 Test Item Value Reference Range Interpretation Comments POC-GLUCOSE METER 95 mg/dL 70-110 : TESTED A T [facility] [address] (BEAKER) (test code = [address], 1538) [place] [address]: Psych Therapist/Techni artemio ID = [id number] for Anne Busby POCT-GLUCOSE [id number] 17:08:00 Test Item Value Reference Range Interpretation Comments POC-GLUCOSE METER 107 mg/dL 70-110 : TESTED A T [facility] [address] (BEAKER) (test code [address], = 1538) [place] [address]: Psych Therapist/Techni artemio ID = [id number] for Jordyn Fonseca POCT-GLUCOSE [id number] 11:55:00 Test Item Value Reference Range Interpretation Comments POC-GLUCOSE METER 135 mg/dL 70-110 H : TESTED A T [facility] [address] (BEAKER) (test code [address], = 1538) [place] [address]: Psych Therapist/Techni artemio ID = [id number] for Jordyn Fonseca ROGER Titer & [id number] 11:40:00 Test Item Value Reference Range Interpretation Comments ROGER Titer (test code = 71323-9) 1:40 ROGER Pattern (test code = 1781) Speckled [facility] HospitalAnti-Nuclear Antibody (ROGER)2019-12-22 11:40:00 Test Item Value Reference Range Interpretation Comments ROGER (test code = 31594-1) Positive Negative A ZIA (test code = ZIA) Test performed by IFA method. Lab Interpretation (test Abnormal code = 44799-4) [facility] HospitalANTI-NUCLEAR ANTIBODY (ROGER)2019-12-22 11:40:00 Test Item Value Reference Range Interpretation Comments ANTI-NUCLEAR ANTIBODY (ROGER) (BEAKER) Positive Negative A (test code = 418) Test performed by IFA method.ROGER TITER AND [id number] 11:40:00 Test Item Value Reference Range Interpretation Comments ROGER TITER (BEAKER) (test code = :40 1541) ROGER PATTERN (BEAKER) (test code = Speckled 1781) POCT-GLUCOSE [id number] 06:44:00 Test Item Value Reference Range Interpretation Comments POC-GLUCOSE METER 92 mg/dL 70-110 : TESTED A T [facility] [address] (BEAKER) (test code = [address], 1538) [facility] [address]: Psych Therapist/Techni artemio ID = [id number] for Anne Busby COMPREHENSIVE METABOLIC [id number] 06:35:00 Test Item Value Reference Range Interpretation [...] S NOT APPLICABLE FOR DIALYSIS PATIEN TS. Psych Therapist ID - ADMINCBC W/PLT COUNT & AUTO [id number] 06:16:00 Test Item Value Reference Range Interpretation [...] PERCENT (BEAKER) (test code = 2801) POCT-GLUCOSE [id number] 20:38:00 Test Item Value Reference Range Interpretation Comments POC-GLUCOSE METER 85 mg/dL 70-110 : TESTED A T [facility] [address] (BEAKER) (test code = [address], 1538) [place] [address]: Psych Therapist/Techni artemio ID = [id number] for Anne Busby POCT-GLUCOSE [id number] 18:14:00 Test Item Value Reference Range Interpretation Comments POC-GLUCOSE METER 112 mg/dL 70-110 H : TESTED A T [facility] [address] (BEAKER) (test code [address], = 1538) [place] [address]: Psych Therapist/Techni artemio ID = [id number] for Berta Servin POCT-GLUCOSE [id number] 13:00:00 Test Item Value Reference Range Interpretation Comments POC-GLUCOSE METER 77 mg/dL 70-110 : TESTED A T [facility] [address] (BEAKER) (test code = [address], 1538) [place] [address]: Psych Therapist/Techni artemio ID = [id number] for Berta Servin POCT-GLUCOSE [id number] 07:32:00 Test Item Value Reference Range Interpretation Comments POC-GLUCOSE METER 60 mg/dL 70-110 L : TESTED A T [facility] [address] (BEAKER) (test code = [address], 1538) [place] [address]: Psych Therapist/Techni artemio ID = [id number] for Sanjay Pageshellievanessa COMPREHENSIVE METABOLIC [id number] 06:11:00 Test Item Value Reference Range Interpretation [...] S NOT APPLICABLE FOR DIALYSIS PATIEN TS. Psych Therapist ID - ADMINC-Reactive [id number] 06:06:00 Test Item Value Reference Range Interpretation Comments CRP (test code = 676) 1.63 mg/dL 0-0.5 H ZIA (test code = ZIA) Psych Therapist ID - ADMIN Lab Interpretation (test Abnormal code = 06891-2) [facility] HospitalC-REACTIVE [id number] 06:06:00 Test Item Value Reference Range Interpretation Comments C-REACTIVE PROTEIN (BEAKER) (test 1.63 mg/dL 0.00-0.50 H code = 676) Psych Therapist ID - ADMINPOCT-GLUCOSE [id number] 06:04:00 Test Item Value Reference Range Interpretation Comments POC-GLUCOSE METER 56 mg/dL 70-110 L : Notified RN/MD: TESTED (BEAKER) (test code = AT [address]) [facility] [address]: Psych Therapist/Techni artemio ID = [id number] for Nelda Abdi CBC W/PLT COUNT & AUTO [id number] 05:53:00 Test Item Value Reference Range Interpretation [...] (BEAKER) (test code = 2801) U/S, ABDOMINAL, [id number] 22:02:00Reason for exam:->thrombocytopenia / eval for hepatosplenomegalyFINAL [...] MDReport Verified Date/Time: 12/20/2019 22:02:21 US abdomen [id number] 22:02:00Interface, External Ris In - 12/20/2019 10:04 [...] Hever Marin MDReport Verified Date/Time: 12/20/2019 22:02:21 [facility]PO[facility] [id number] 20:36:00 Test Item Value Reference Range Interpretation Comments POC-GLUCOSE METER 74 mg/dL 70-110 : Notified RN/MD: TESTED (BEAKER) (test code = AT [address]LS L [address]) [facility] [address]: Psych Therapist/Techni artemio ID = [id number] for Nelda Abdi POCT-GLUCOSE [id number] 17:50:00 Test Item Value Reference Range Interpretation Comments POC-GLUCOSE METER 72 mg/dL 70-110 : TESTED A T [facility] [address] ([facility]) (test code = [address] [facility], 1538) [facility] [address]: Psych Therapist/Techni artemio ID = [id number] for Berta Servin CT, BRAIN, WITHOUT [id number] 16:08:00Unlisted Reason for Exam - Click Yes [...] Date/Time: 12/20/2019 16:08:40 CT brain without IV [id number] 16:08:00Interface, External Ris In - 12/20/2019 4:10 [...] Berta Muniz MDReport Verified Date/Time: 12/20/2019 16:08:40 [facility] CenterRAD, FOOT, 2 VIEWS, [id number] 15:15:00Reason for exam:->Rule out osteomyelitisShould this be [...] Monahaneport Verified Date/Time: 12/20/2019 15:15:25 Reading Location: [facility] Radiology Reading Room , FOOT, 2 VIEWS, [id number] 15:15:00Reason for exam:->Rule out osteomyelitisShould this be [...] Monahanort Verified Date/Time: 12/20/2019 15:15:25 Reading Location: [facility] Radiology Reading Room XR foot 2 views [id number] 15:15:00Interface, External Ris In - 12/20/2019 3:17 [...] Monahan Verified Date/Time: 12/20/2019 15:15:25 Reading Location: [facility] Radiology Reading Room [facility] CenterXR foot 2 views [id number] 15:15:00Interface, External Ris In - 12/20/2019 3:17 [...] Monahan Verified Date/Time: 12/20/2019 15:15:25 Reading Location: [facility] Radiology Reading Room [facility] CenterAMMONIA2020-09-21 14:56:00 Test Item Value Reference Range Interpretation Comments AMMONIA (BEAKER) (test code = 348) 33 mol/L 17-80 Psych Therapist ID - ADMINBlood gas, [id number] 14:41:00 Test Item Value Reference Range Interpretation Comments pH, Arterial (test code 7.33 7.35-7.45 L = 2744-1) pCO2, Arterial (test 58 See_Comment H [Autom ated message] code = 2019-8) The system [facility] generated this result transmit merna reference range : 35 - 45 mmHg. The reference range was not used to interpret this result as normal/abnormal . pO2, Arterial (test 109 See_Comment H [Automa merna message] code = 2703-7) The system [facility] generated this result transmit merna reference range [...] % Lab Interpretation Abnormal (test code = 31895-3) [facility] HospitalBLOOD GAS, [id number] 14:41:00 Test Item Value Reference Range Interpretation [...] code = 1819) 32.0 % Occult blood, [id number] 11:56:00 Test Item Value Reference Range Interpretation Comments Occult blood (test code = 2335-8) Negative Negative Lab Interpretation (test code = Normal 03224-0) [facility] HospitalOCCULT BLOOD, [id number] 11:56:00 Test Item Value Reference Range Interpretation Comments FECAL OCCULT BLOOD (BEAKER) (test Negative Negative code = 618) POCT-GLUCOSE [id number] 11:39:00 Test Item Value Reference Range Interpretation Comments POC-GLUCOSE METER 88 mg/dL 70-110 : TESTED A T [facility] [address] (BEAKER) (test code = [address], 1538) [facility] [address]: Psych Therapist/Techni artemio ID = [id number] for Gifty Phelps [id number] 11:22:00 Test Item Value Reference Range Interpretation Comments Haptoglobin (test code = <8 14-258 L 4542-7) ZIA (test code = ZIA) Psych Therapist ID - LEONIE F Lab Interpretation (test Abnormal code = 94589-3) [facility] HospitalHAPTOGLOBIN2020-09-21 11:22:00 Test Item Value Reference Range Interpretation Comments HAPTOGLOBIN (BEAKER) (test code = < mg/dL 14-258 L 366) Psych Therapist ID - LEONIE FT4, [id number] 11:01:00 Test Item Value Reference Range Interpretation Comments Free T4 (test code = 0.52 ng/dL 0.9-1.8 L 3024-7) ZIA (test code = ZIA) Psych Therapist ID - ADMIN Lab Interpretation (test Abnormal code = 50252-4) [facility], [id number] 11:01:00 Test Item Value Reference Range Interpretation Comments FREE T4 (BEAKER) (test code = 655) 0.52 ng/dL 0.90-1.80 L Psych Therapist ID - ADMINPeripheral Blood Smear - Path [id number] 08:19:00 Test Item Value Reference Range Interpretation [...] Griffith M.D. code = 2849) (electronic signature) [facility]PER[facility] - PATHOLOGIST REVIEW 2019-12-20 08:19:00 Test Item Value Reference Range Interpretation Comments RBC MORPHOLOGY Target Cells (BEAKER) (test code = 2846) RBC MORPHOLOGY Basophilic Stippling (BEAKER) (test code = 73313) RBC MORPHOLOGY Nucleated Red Blood Cells (BEAKER) (test code = 98127) PERIPHERAL SMR Normochromic normocytic REVIEW (BEAKER) anemia with a few target (test code = 2640) cells, nucleated RBCs and basophilic stippling. No increase in schistocytes. WBCs normal in number and morphology. Thrombocytopenia with normal platelet morphology. [id number] Jovita Griffith M.D. 2 (BEAKER) (test (electronic signature) code = 2849) Vitamin B12 and [id number] 06:37:00 Test Item Value Reference Range Interpretation Comments Vitamin B12 (test 1431 pg/mL 211-911 H code = 2132-9) Folate (test code = 17.00 ng/mL See_Comment [Automa merna 2284-8) message] The system which generated this result transmit merna reference range : >=5.4. The reference range was not used to interpret this result as normal/abnormal . ZIA (test code = ZIA) Psych Therapist ID - ADMIN Lab Interpretation Abnormal (test code = 54389-0) [facility] HospitalVITAMIN B12 AND [id number] 06:37:00 Test Item Value Reference Range Interpretation Comments VITAMIN B12 (BEAKER) (test code = 1431 pg/mL 211-911 H 774) FOLATE (BEAKER) (test code = 362) 17.00 ng/mL >=5.4 Psych Therapist ID - ADMINPOCT-GLUCOSE [id number] 06:32:00 Test Item Value Reference Range Interpretation Comments POC-GLUCOSE METER 79 mg/dL 70-110 : TESTED A T [facility] [address] (BEAKER) (test code = [address], [address]) [facility] [address]: Psych Therapist/Techni artemio ID = [id number] for Anahi Sherman TSH/Free T4 If [id number] 06:25:00 Test Item Value Reference Range Interpretation Comments TSH (test code = 21.210 See_Comment H [Automated 89463-4) message] The system which generated this result transmit merna reference range : 0.350 - 5.500 uIU/mL. The reference range was not used to interpret this result as normal/abnormal . ZIA (test code = ZIA) Psych Therapist ID - ADMIN Lab Interpretation Abnormal (test code = 32663-6) [facility] HospitalFerritin2020-09-21 06:25:00 Test Item Value Reference Range Interpretation Comments Ferritin (test code = 595.00 ng/mL 10-291 H 2276-4) ZIA (test code = ZIA) Psych Therapist ID - ADMIN Lab Interpretation (test Abnormal code = 67917-1) [facility] HospitalFERRITIN2020-09-21 06:25:00 Test Item Value Reference Range Interpretation Comments FERRITIN (BEAKER) (test code = 595.00 ng/mL 10.00-291.00 H 361) Psych Therapist ID - ADMINTSH/FREE T4 IF [id number] 06:25:00 Test Item Value Reference Range Interpretation Comments THYROID STIMULATING HORMONE 21.210 uIU/mL 0.350-5.500 H (BEAKER) (test code = 772) Psych Therapist ID - ADMINPT/fNUH6367-52-98 06:06:00 Test Item Value Reference Interpretation Comments Range Protime (test code = 13.5 See_Comment H [Autom ated 5902-2) message] The system which generated this result transmitted reference range : 9.3 - 12.0 sec. The reference range was not used to interpret this result as normal/abnormal . INR (test code = 1.25 See_Comment [Automated 3131-6) message] The system which generated this result transmitted reference range : <=5.90. The reference range was not used to interpret this result as normal/abnormal . PTT (test code = 38.2 See_Comment H [Automated 61932-1) message] The system which generated this result [...] Output) Lab Interpretation Abnormal (test code = 44439-9) [facility] Test Item Value Reference Range Interpretation Comments Fibrinogen (test code = 340 mg/dL 316-153 4587-7) ZIA (test code = ZIA) Final Information (Auto Output) Lab Interpretation (test Normal code = 46108-5) [facility] Test Item Value Reference Range Interpretation Comments FIBRINOGEN LEVEL (BEAKER) (test 340 mg/dL 200-400 code = 658) Final Information (Auto Output)PT/[id number] 06:06:00 Test Item Value Reference Range Interpretation [...] = 2502-3) ZIA (test code = ZIA) Psych Therapist ID - ADMIN Lab Interpretation (test Abnormal code = 72435-7) [facility] HospitalIRON, TIBC, % SAT. (WITHOUT FERRITIN)2019-12-20 05:59:00 Test Item Value Reference Range Interpretation Comments IRON (BEAKER) (test code = 547) 92.0 ug/dL 45.0-170.0 TOTAL IRON BINDING CAPACITY 151 ug/dL 250-550 L (BEAKER) (test code = 769) IRON % SATURATION (2) (BEAKER) 61 % 20-55 H (test code = 2590) Psych Therapist ID - ADMINCOMPREHENSIVE METABOLIC [id number] 05:55:00 Test Item Value Reference Range Interpretation [...] S NOT APPLICABLE FOR DIALYSIS PATIEN TS. Psych Therapist ID - GEQXRS-cvprq3965-89-21 05:46:00 Test Item Value Reference Range Interpretation Comments D-Dimer, Quant (test 1.09 mg/L <0.50 H code = 39086-7) ZIA (test code = ZIA) REGARDING D-DIMER RESULTS: The 98% NPV (Negative Predictive Value) for DVT/PE exclusion is 0.50 mg/L FEU as suggested by the web marketing specialist and as approved by the FDA.Final Information (Auto Output) Lab Interpretation (test Abnormal code = 62464-5) [facility] HospitalD-[id number] 05:46:00 Test Item Value Reference Range Interpretation Comments D-DIMER QUANTITATIVE (BEAKER) (test 1.09 mg/L <0.50 H code = 671) REGARDING D-DIMER RESULTS: The 98% NPV (Negative Predictive Value) for DVT/PE exclusion is 0.50 mg/LFEU as suggested by the web marketing specialist and as approved by the FDA.Final Information (Auto Output)Reticulocyte [id number] 05:42:00 Test Item Value Reference Range Interpretation Comments % Retic (test code = 72301-8) 5.9 % 0.4-2.9 H Lab Interpretation (test code = Abnormal 68274-2) [facility] HospitalRETICULOCYTE [id number] 05:42:00 Test Item Value Reference Range Interpretation Comments RETICULOCYTE COUNT PCT (BEAKER) (test 5.9 % 0.4-2.9 H code = 575) CBC W/PLT COUNT & AUTO [id number] 05:33:00 Test Item Value Reference Range Interpretation [...] U/L 107-206 ZIA (test code = ZIA) Psych Therapist ID - ADMIN Lab Interpretation (test Normal code = 82160-6) [facility] HospitalLACTATE DEHYDROGENASE (LDH)2019-12-19 21:19:00 Test Item Value Reference Range Interpretation Comments LACTATE DEHYDROGENASE (BEAKER) (test 178 U/L 107-206 code = 635) Psych Therapist ID - ADMINPOCT-GLUCOSE [id number] 20:47:00 Test Item Value Reference Range Interpretation Comments POC-GLUCOSE METER 102 mg/dL 70-110 : TESTED A T [facility] [address] (BEAKER) (test code [facility] [address] [address], = 1538) [facility] [address]: Psych Therapist/Techni artemio ID = [id number] for Anahi Sherman POCT-GLUCOSE [id number] 16:18:00 Test Item Value Reference Range Interpretation Comments POC-GLUCOSE METER 96 mg/dL 70-110 : TESTED A T [facility] [address] (BEAKER) (test code = [address], [address]) [place] [address]: Psych Therapist/Techni artemio ID = [id number] for Nalini Jean Baptiste Basic Metabolic [id number] 06:26:00 Test Item Value Reference Range Interpretation Comments Sodium (test code = 138 meq/L 735-158 5166-2) Potassium (test code = 3.9 meq/L 3.6-5.5 2823-3) Chloride (test code = 99 meq/L 98-106 2075-0) CO2 (test code = 30 meq/L 20-29 H 2028-9) BUN (test code = 47 mg/dL 10-26 H 3094-0) Creatinine (test code 3.04 mg/dL 0.5-1.2 H = 2160-0) Glucose (test code = 82 mg/dL 70-110 2345-7) Calcium (test code = 7.9 mg/dL 8.5-10.5 L 54327-0) EGFR (test code = 15 mL/min/1.73 [place] [address]-3) NOT ACCURATE CREATININE CLEARANCE IN PREDICTING GLOMERULAR FILTRATION RATE . ESTIMATED GFR I S NOT APPLICABLE FOR DIALYSIS PATIENTS. ZIA (test code = ZIA) Psych Therapist ID - ADMIN Lab Interpretation Abnormal (test code = 06313-1) [facility] METABOLIC [id number] 06:26:00 Test Item Value Reference Range Interpretation [...] S NOT APPLICABLE FOR DIALYSIS PATIEN TS. Psych Therapist ID - ADMINCBC W/PLT COUNT & AUTO [id number] 06:04:00 Test Item Value Reference Range Interpretation [...] PERCENT (BEAKER) (test code = 2801) POCT-GLUCOSE [id number] 05:35:00 Test Item Value Reference Range Interpretation Comments POC-GLUCOSE METER 85 mg/dL 70-110 : Notified RN/MD: TESTED ([facility]) (test code = AT [facility] [address]) [place] [address]: Psych Therapist/Techni artemio ID = [id number] for Niraj , Zonia POCT-GLUCOSE [id number] 21:46:00 Test Item Value Reference Range Interpretation Comments POC-GLUCOSE METER 125 mg/dL 70-110 H : Notified RN/MD: [facility] ([facility] [address] [address]) [place] [address]: Psych Therapist/Techni artemio ID = [id number] for Niraj , Zonia POCT-GLUCOSE [id number] 16:17:00 Test Item Value Reference Range Interpretation Comments POC-GLUCOSE METER 103 mg/dL 70-110 : [facility] (BEAKER) (test code [address] [facility], = 1538) [place] [address]: Psych Therapist/Techni artemio ID = [id number] for Nalini Jean Baptiste POCT-GLUCOSE [id number] 07:56:00 Test Item Value Reference Range Interpretation Comments POC-GLUCOSE METER 111 mg/dL 70-110 H : [facility] (BEAKER) (test code [address] [facility], = 1538) [place] [address]: Psych Therapist/Techni artemio ID = [id number] for Nalini Jean Baptiste POCT-GLUCOSE [id number] 06:25:00 Test Item Value Reference Range Interpretation Comments POC-GLUCOSE METER 57 mg/dL 70-110 L : TESTED A T [address] (BEAKER) (test code = [address], [address]) [place] [address]: Psych Therapist/Techni artemio ID = [id number] for Ashley n, Anne POCT-GLUCOSE [id number] 21:55:00 Test Item Value Reference Range Interpretation Comments POC-GLUCOSE METER 76 mg/dL 70-110 : TESTED A T [address] (BEAKER) (test code = [address], 15[address]) [place] [address]: Psych Therapist/Techni artemio ID = [id number] for Ashley n, Anne POCT-GLUCOSE [id number] 18:03:00 Test Item Value Reference Range Interpretation Comments POC-GLUCOSE METER 81 mg/dL 70-110 : TESTED A T [address] (BEAKER) (test code = [address], 15[address]) [place] [address]: Psych Therapist/Techni artemio ID = [id number] for Ericka Daniel POCT-GLUCOSE [id number] 12:33:00 Test Item Value Reference Range Interpretation Comments POC-GLUCOSE METER 73 mg/dL 70-110 : TESTED A T [address] (BEAKER) (test code = [address], 15[address]) [place] [address]: Psych Therapist/Techni artemio ID = [id number] for Marisela Bolton Hepatitis B surface [id number] 10:49:00 Test Item Value Reference Range Interpretation Comments Hep B S Ab (test code <8.0 See_Comment [Auto mated = 62924-0) message] The system which generated this result transmit merna reference range : <8.0 mIU/mL. e reference range was not used to interpret this result as normal/abnormal . ZIA (test code = ZIA) Psych Therapist ID - LEONIE F Lab Interpretation Normal (test code = 61483-7) [facility] HospitalHEPATITIS [facility] SURFACE [id number] 10:49:00 Test Item Value Reference Range Interpretation Comments HEPATITIS B SURFACE ANTIBODY < mIU/mL <8.0 (BEAKER) (test code = 647) Psych Therapist ID - LEONIE FHepatitis B core antibody, [id number] 10:43:00 Test Item Value Reference Range Interpretation Comments Hep B Core Total Ab Nonreactive Nonreactive (test code = 05798-5) ZIA (test code = ZIA) Psych Therapist ID Bijal Jay Lab Interpretation (test Normal code = 72896-2) [facility] [id number] 10:43:00 Test Item Value Reference Range Interpretation Comments Hepatitis C Ab (test Nonreactive Nonreactive code = 68008-9) ZIA (test code = ZIA) Psych Therapist ID Bijal Jay Lab Interpretation (test Normal code = 16060-1) [facility] C [id number] 10:43:00 Test Item Value Reference Range Interpretation Comments HEPATITIS C ANTIBODY (BEAKER) Nonreactive Nonreactive (test code = 367) Psych Therapist ID Bijal HADLEY FHEPATITIS B CORE ANTIBODY, [id number] 10:43:00 Test Item Value Reference Range Interpretation Comments HEPATITIS B CORE TOTAL ANTIBODY Nonreactive Nonreactive (BEAKER) (test code = 497) Psych Therapist ID Bijal HADLEY FPOCT-GLUCOSE [id number] 06:31:00 Test Item Value Reference Range Interpretation Comments POC-GLUCOSE METER 67 mg/dL 70-110 L : TESTED A T [address] (BEAKER) (test code = [address], 1538) [facility] [address]: Psych Therapist/Techni artemio ID = [id number] for Anne Busby COMPREHENSIVE METABOLIC [id number] 05:10:00 Test Item Value Reference Range Interpretation [...] S NOT APPLICABLE FOR DIALYSIS PATIEN TS. Psych Therapist ID - ADMINCBC W/PLT COUNT & AUTO [id number] 04:36:00 Test Item Value Reference Range Interpretation [...] PERCENT (BEAKER) (test code = 2801) POCT-GLUCOSE [id number] 21:14:00 Test Item Value Reference Range Interpretation Comments POC-GLUCOSE METER 79 mg/dL 70-110 : [facility] T [address] [facility] (test code = [address] [facility], 1538) [facility] [address]: Psych Therapist/Techni artemio ID = [id number] for Anne Busby POCT-GLUCOSE [id number] 18:35:00 Test Item Value Reference Range Interpretation Comments POC-GLUCOSE METER 68 mg/dL 70-110 L : Notified RN/MD: TESTED (AKER) (test code = AT [address]) [facility] [address]: Psych Therapist/Techni artemio ID = [id number] for Alondra Kelley SARS-COV2/RT-PCR ([facility])2019-12-16 17:53:00 Test Item Value Reference Range Interpretation Comments SARS-COV2/RT-PCR (test Negative Not Detected, Negative, code = 3541822) See external report for linked test SARS-COV-[address] [facility] JANET (test code = 2700154) Negative result for this test determines that [...] 564(g) of the Act.Fact Sheet for Healthcare Providers:https://www.Lyxiaidel.com/sites/default/files/product/documents/Fact_Shee j_JU_Kkxgxqpbt_Xcmo_VXSN-PxX-6.pdfFact Sheet for Healthcare Patients:https://www.Lyxiaidel.com/sites/default/files/product/ documents/Puuq_Bzpfa_Kzqhxjbj_Zmfz_GQCD-JiS-4.pdfPerforming Laboratory:[facility], [place] [address]Ujnckicqw B surface [id number] 16:57:00 Test Item Value Reference Range Interpretation Comments HBsAg Screen (test code = Nonreactive Nonreactive 5195-3) ZIA (test code = ZIA) Psych Therapist ID - ADMIN Lab Interpretation (test Normal code = 21153-6) [facility]HEPAT[facility]IS [facility] SURFACE [id number] 16:57:00 Test Item Value Reference Range Interpretation Comments HEPATITIS B SURFACE ANTIGEN (2) Nonreactive Nonreactive (BEAKER) (test code = 2585) Psych Therapist ID - ADMINANG, TUNNELED CATHETER [id number] 15:06:00Reason for Central Line/PICC?->Need for hemodialysis accessReason [...] the patient's medical record by the nurse. Faa Certified Powerplant Mechanic: Soto Arias M.D. Supervisor Aircraft Maintenance: none. Approach: Right internal jugular vein Estimated [...] needle into the right atrium. A 4 Polish micropuncture sheath was placed and a 0.035 wire was advanced into the IVC. A subcutaneous tunnel was created in the left anterior chest wall by blunt dissection. A 23 cm tip to cuff 15.5 Polish Duraflow 2 catheter was brought through the [...] Arias MDReport Verified Date/Time: 12/16/2019 15:06:45Reading Location: [facility] Radiology Reading Room IR Tunneled Catheter [id number] 15:06:00 Interface, External Ris In - 12/16/2019 [...] the patient's medical record by the nurse. Faa Certified Powerplant Mechanic: Soto Arias M.D. Ass istant: none. Approach: [...] A 23 cm tip to cuff 15.5 Polish Duraflow 2 catheter was brought through the [...] MDReport Verified Date/Time: 12/16/2019 15:06:45 Reading Location: [facility] Radiology Reading [facility] [id number] 14:59:00 Test Item Value Reference Range Interpretation Comments POC-GLUCOSE METER 70 mg/dL 70-110 : Notified RN/MD: TESTED (BEAKER) (test code = AT [facility] [address]) JAYNAJoe [facility] [address]: Psych Therapist/Techni artemio ID = [id number] for Alondra Kelley POCT-GLUCOSE [id number] 11:13:00 Test Item Value Reference Range Interpretation Comments POC-GLUCOSE METER 72 mg/dL 70-110 : Notified RN/MD: TESTED ([facility]) (test code = AT [facility] [address]) [facility] [address] Psych Therapist/Techni artemio ID = [id number] for Alondra Kelley RAD, CHEST, 1 VIEW, NON [id number] 09:20:00Reason for exam:->fallShould this be performed at [...] MDReport Verified Date/Time: 12/16/2019 09:20:06 Reading Location: [facility] Radiology Reading Room XR chest 1 view portable / [id number] 09:20:00Interface, External Ris In - 12/16/2019 9:22 [...] MDReport Verified Date/Time: 12/16/2019 09:20:06 Reading Location: [facility] Radiology Reading Room Electronically yeimi d by: SOTO ARIAS MD on 12/16/2019 09:20 [facility] POCT-GLUCOSE [id number] 06:03:00 Test Item Value Reference Range Interpretation Comments POC-GLUCOSE METER 74 mg/dL 70-110 : Notified RN/MD: TESTED (BEAKER) (test code = AT [facility] [address]) [facility] [address]: Psych Therapist/Techni artemio ID = [id number] for Zonia Healy BASIC METABOLIC [id number] 05:08:00 Test Item Value Reference Range Interpretation [...] S NOT APPLICABLE FOR DIALYSIS PATIEN TS. Psych Therapist ID - ADMINProthrombin time/[id number] 05:01:00 Test Item Value Reference Interpretation Comments [...] Output) Lab Interpretation Abnormal (test code = 71916-5) [facility] HospitalPROTHROMBIN TIME/[id number] 05:01:00 Test Item Value Reference Range Interpretation [...] Information (Auto Output)CBC W/PLT COUNT & AUTO [id number] 04:46:00 Test Item Value Reference Range Interpretation [...] PERCENT (BEAKER) (test code = 2801) POCT-GLUCOSE [id number] 17:13:00 Test Item Value Reference Range Interpretation Comments POC-GLUCOSE METER 220 mg/dL 70-[address] [facility] [address] (BEAKER) (test code = [place] 1538) [address] BASIC METABOLIC [id number] 15:47:00 Test Item Value Reference Range Interpretation [...] NOT APPLICABLE FOR DIALYSIS PATIEN TS. POCT-GLUCOSE [id number] 11:30:00 Test Item Value Reference Range Interpretation Comments POC-GLUCOSE METER 268 mg/dL 70-110 H TESTED AT [place] [address] ([facility]) (test code = [facility] 1538) [address] POCT-GLUCOSE [id number] 07:08:00 Test Item Value Reference Range Interpretation Comments POC-GLUCOSE METER 208 mg/dL 70-110 H TESTED AT [place] [address] ([facility]) (test code = [facility] 1538) [address] CALCIUM, [id number] 06:47:00 Test Item Value Reference Range Interpretation Comments CALCIUM IONIZED (BEAKER) (test 1.11 mmol/L 1.12-1.27 L code = 698) PH, BLOOD (BEAKER) (test code = 7.40 1810) BASIC METABOLIC [id number] 06:40:00 Test Item Value Reference Range Interpretation [...] S NOT APPLICABLE FOR DIALYSIS PATIEN TS. [id number] 06:33:00 Test Item Value Reference Range Interpretation Comments PHOSPHORUS (BEAKER) (test code = 5.1 mg/dL 2.3-4.7 H 604) [id number] 06:33:00 Test Item Value Reference Range Interpretation Comments MAGNESIUM (BEAKER) (test code = 2.0 mg/dL 1.6-2.6 627) LACTIC ACID, VENOUS, WHOLE [id number] 06:02:00 Test Item Value Reference Range Interpretation Comments LACTATE BLOOD VENOUS (2) (BEAKER) 0.8 mmol/L 0.5-2.2 (test code = 2872) Effective 08/02/2015: Units/Reference Range ChangeNew: 0.5-2.2 mmol/L Previous: 5-20 mg/dLCBC W/PLT COUNT & AUTO [id number] 05:54:00 Test Item Value Reference Range Interpretation [...] PERCENT (BEAKER) (test code = 2801) POCT-GLUCOSE [id number] 21:30:00 Test Item Value Reference Range Interpretation Comments POC-GLUCOSE METER 248 mg/dL 70-[address] [facility] [address] (BEAKER) (test code = [address] [place] 15[address]) [address] RAD, [id number] 21:22:00Reason for exam:->fall, tailbone painFINAL REPORT RAD, [...] MDReport Verified Date/Time: 09/04/2017 21:22:03 Reading Location: [facility] C013T [facility] Reading Room POCT-GLUCOSE [id number] 17:37:00 Test Item Value Reference Range Interpretation Comments POC-GLUCOSE METER 222 mg/dL 70-110 H TESTED AT [place] [address] ([facility]) (test code = [facility] 1538) [address] POCT-GLUCOSE [id number] 13:55:00 Test Item Value Reference Range Interpretation Comments POC-GLUCOSE METER 194 mg/dL 70-110 H TESTED AT [place] [address] ([facility]) (test code = [facility] 1538) [address] POCT-GLUCOSE [id number] 12:34:00 Test Item Value Reference Range Interpretation Comments POC-GLUCOSE METER 229 mg/dL 70-110 H TESTED AT [place] [address] ([facility]) (test code = [facility] Dylon [facility] 1538) [address] POCT-GLUCOSE [id number] 08:00:00 Test Item Value Reference Range Interpretation Comments POC-GLUCOSE METER 159 mg/dL 70-110 H TESTED AT [place] [address] ([facility]) (test code = [facility] 1538) [address] CALCIUM, [id number] 06:00:00 Test Item Value Reference Range Interpretation Comments CALCIUM IONIZED ([facility]) (test 1.05 mmol/L 1.12-1.27 L code = 698) PH, BLOOD ([facility]) (test code = 7.45 1810) [id number] 05:59:00 Test Item Value Reference Range Interpretation Comments PHOSPHORUS ([facility]) (test code = 4.8 mg/dL 2.3-4.7 H 604) [id number] 05:59:00 Test Item Value Reference Range Interpretation Comments MAGNESIUM (BEAKER) (test code = 2.0 mg/dL 1.6-2.6 627) BASIC METABOLIC [id number] 05:59:00 Test Item Value Reference Range Interpretation [...] = 380) CBC W/PLT COUNT & AUTO [id number] 05:32:00 Test Item Value Reference Range Interpretation [...] PERCENT (BEAKER) (test code = 2801) POCT-GLUCOSE [id number] 20:36:00 Test Item Value Reference Range Interpretation Comments POC-GLUCOSE METER 211 mg/dL 70-[address] [facility] [address] (BEAKER) (test code = [address] [place] 1538) [address] CREATININE, RANDOM [id number] 19:55:00 Test Item Value Reference Range Interpretation Comments CREATININE URINE (BEAKER) (test 16.1 mg/dL code = 375) Reference Range: No NormalsPROTEIN, RANDOM [id number] 19:55:00 Test Item Value Reference Range Interpretation Comments PROTEIN, URINE (BEAKER) (test code 102 mg/dL 0-14 H = 1569) POCT-GLUCOSE [id number] 18:04:00 Test Item Value Reference Range Interpretation Comments POC-GLUCOSE METER 177 mg/dL 70-110 H TESTED AT [place] [address] (BEAKER) (test code = [facility] 1538) [address] POCT-GLUCOSE [id number] 11:59:00 Test Item Value Reference Range Interpretation Comments POC-GLUCOSE METER 244 mg/dL 70-110 H TESTED AT [place] [address] (BEAKER) (test code = [facility] 1538) [address] POCT-GLUCOSE [id number] 07:53:00 Test Item Value Reference Range Interpretation Comments POC-GLUCOSE METER 160 mg/dL 70-110 H TESTED AT [place] [address] (BEAKER) (test code = [facility] 1538) [address] BASIC METABOLIC [id number] 05:29:00 Test Item Value Reference Range Interpretation [...] 697) EGFR (BEAKER) (test 29 mL/min/1.73 ESTIMA EMRNA GFR IS code = 1092) sq m NOT ACCURATE CREATININE CLEARANCE IN PREDICTING GLOMERULAR FILTRATION RATE . ESTIMATED GFR I S NOT APPLICABLE FOR DIALYSIS PATIEN TS. [id number] 05:21:00 Test Item Value Reference Range Interpretation Comments MAGNESIUM (BEAKER) (test code = 2.1 mg/dL 1.6-2.6 627) HEPATIC FUNCTION [id number] 05:21:00 Test Item Value Reference Range Interpretation [...] code = 23 U/L 6-55 347) TROPONIN [id number] 05:18:00 Test Item Value Reference Range Interpretation [...] PERCENT (BEAKER) (test code = 2801) TROPONIN [id number] 23:40:00 Test Item Value Reference Range Interpretation [...] acidosis, acute neurological disease, and persistent tachyarrhythmia.POCT-GLUCOSE [id number] 22:51:00 Test Item Value Reference Range Interpretation Comments POC-GLUCOSE METER 214 mg/dL 70-[address] [facility] (BEAKER) (test code = [place] 1538) [address] RAD, CHEST, 1 VIEW, NON [id number] 21:42:00Reason for exam:->CHEST PAINShould this be performed at the bedside?->YesFINAL REPORT RAD, CHEST, 1 VIEW, NON DEPT INDICATION: CHEST PAIN COMPARISON: Chest x-ray 4 weeks ago TECHNIQUE: Single frontal view of the chest. IMPRESSION:Cardiomegaly.Mild pulmonary interstitial edema with a small right- sided effusion.No acute osseous abnormality. Signed: Dario Abraham MDReport Verified Date/Time: 09/02/2017 21:42:11 Reading Location: [address] Reading Room CREATININE, RANDOM [id number] 21:10:00 Test Item Value Reference Range Interpretation Comments CREATININE URINE (BEAKER) (test 35.5 mg/dL code = 375) Reference Range: No NormalsSODIUM, RANDOM [id number] 21:10:00 Test Item Value Reference Range Interpretation Comments SODIUM URINE (BEAKER) (test code = 80 meq/L 243) Reference Range: No NormalsURINALYSIS W/ [id number] 20:59:00 Test Item Value Reference Range Interpretation [...] code = 514) SOURCE(BEAKER) (test code = 6515) BASIC METABOLIC [id number] 16:49:00 Test Item Value Reference Range Interpretation [...] S NOT APPLICABLE FOR DIALYSIS PATIEN TS. [id number] 16:38:00 Test Item Value Reference Range Interpretation [...] (BEAKER) (test code = 700) BASIC METABOLIC [id number] 13:43:00 Test Item Value Reference Range Interpretation [...] NOT APPLICABLE FOR DIALYSIS PATIEN TS. POCT-GLUCOSE [id number] 12:44:00 Test Item Value Reference Range Interpretation Comments POC-GLUCOSE METER 283 mg/dL 70-[address] [facility] (BEAKER) (test code = JULIANO Osborne [place] 1538) [address] CALCIUM, [id number] 07:03:00 Test Item Value Reference Range Interpretation Comments CALCIUM IONIZED (BEAKER) (test 1.02 mmol/L 1.12-1.27 L code = 698) PH, BLOOD (BEAKER) (test code = 7.43 1810) [id number] 05:28:00 Test Item Value Reference Range Interpretation Comments PHOSPHORUS (BEAKER) (test code = 3.3 mg/dL 2.3-4.7 604) [id number] 05:28:00 Test Item Value Reference Range Interpretation Comments MAGNESIUM (BEAKER) (test code = 1.5 mg/dL 1.6-2.6 L 627) BASIC METABOLIC [id number] 05:28:00 Test Item Value Reference Range Interpretation [...] PATIEN TS. CBC W/PLT COUNT & AUTO [id number] 05:06:00 Test Item Value Reference Range Interpretation [...] PERCENT (BEAKER) (test code = 2801) POCT-GLUCOSE [id number] 21:08:00 Test Item Value Reference Range Interpretation Comments POC-GLUCOSE METER 202 mg/dL 70-[address] [facility] (test code = JULIANO [place] 1538) [address] POCT-GLUCOSE [id number] 16:50:00 Test Item Value Reference Range Interpretation Comments POC-GLUCOSE METER 287 mg/dL 70-110 H [place] [address] (BEAKER) (test code = JULIANO Osborne [facility] 1538) [address] POCT-GLUCOSE [id number] 12:21:00 Test Item Value Reference Range Interpretation Comments POC-GLUCOSE METER 213 mg/dL 70-110 H TESTED AT [place] [address] (BEAKER) (test code = JULIANO Osborne [facility] 1538) [address] POCT-GLUCOSE [id number] 08:28:00 Test Item Value Reference Range Interpretation Comments POC-GLUCOSE METER 178 mg/dL 70-110 H TESTED AT [place] [address] (BEAKER) ([facility] = [facility] 1538) [address] CALCIUM, [id number] 07:06:00 Test Item Value Reference Range Interpretation Comments CALCIUM IONIZED (BEAKER) (test 0.99 mmol/L 1.12-1.27 L code = 698) PH, BLOOD (BEAKER) (test code = 7.42 1810) [id number] 05:37:00 Test Item Value Reference Range Interpretation Comments PHOSPHORUS (BEAKER) (test code = 3.5 mg/dL 2.3-4.7 604) [id number] 05:37:00 Test Item Value Reference Range Interpretation Comments MAGNESIUM (BEAKER) (test code = 1.6 mg/dL 1.6-2.6 627) BASIC METABOLIC [id number] 05:37:00 Test Item Value Reference Range Interpretation [...] PATIEN TS. CBC W/PLT COUNT & AUTO [id number] 05:07:00 Test Item Value Reference Range Interpretation [...] EOSINOPHILS ABSOLUTE COUNT 0.26 K/ L 0.04-0.36 ([facility]) (test code = 416) BASOPHILS ABSOLUTE COUNT ([facility]) 0.04 K/ L 0.01-0.08 (test code = 417) IMMATURE GRANULOCYTES-RELATIVE 1 % 0-1 PERCENT ([facility]) (test code = 2801) POCT-GLUCOSE [id number] 21:24:00 Test Item Value Reference Range Interpretation Comments POC-GLUCOSE METER 255 mg/dL 70-110 H TESTED AT [place] [address] ([facility]) (test code = [facility] 1538) [address] POCT-GLUCOSE [id number] 17:11:00 Test Item Value Reference Range Interpretation Comments POC-GLUCOSE METER 244 mg/dL 70-110 H TESTED AT [place] [address] ([facility]) (test code = [facility] 1538) [address] POCT-GLUCOSE [id number] 11:54:00 Test Item Value Reference Range Interpretation Comments POC-GLUCOSE METER 209 mg/dL 70-110 H TESTED AT [place] [address] ([facility]) (test code = [facility] 1538) [address] POCT-GLUCOSE [id number] 08:15:00 Test Item Value Reference Range Interpretation Comments POC-GLUCOSE METER 132 mg/dL 70-110 H TESTED AT [place] [address] ([facility]) (test code = [facility] 1538) [address] RAD, CHEST, 1 VIEW, NON [id number] 07:44:00Reason for exam:->edemaShould this be performed at the bedside?->YesFINAL REPORT Chest one view AP 08/07/2017 7:44 AM CLINICAL INDICATION: edema COMPARISON: 05/31/2017 IMPRESSION: Cardiomediastinal contours are stable. There is mild pulmonary edema,asymmetric to the right. There are trace bilateral pleural effusions, with bibasilar linear atelectasis. Sternotomy wires remain midline. Signed: Regan Cespedes Verified Date/Time: 08/07/2017 07:44:22 Reading Location: [facility] Radiology Reading Room [id number] 05:30:00 Test Item Value Reference Range Interpretation Comments FERRITIN (BEAKER) (test code = 361) 87 ng/mL 5-275 CBC W/PLT COUNT & AUTO [id number] 05:21:00 Test Item Value Reference Range Interpretation [...] % 20-55 L (test code = 2590) [id number] 05:11:00 Test Item Value Reference Range Interpretation Comments PHOSPHORUS (BEAKER) (test code = 3.6 mg/dL 2.3-4.7 604) [id number] 05:11:00 Test Item Value Reference Range Interpretation Comments MAGNESIUM (BEAKER) (test code = 2.0 mg/dL 1.6-2.6 627) BASIC METABOLIC [id number] 05:11:00 Test Item Value Reference Range Interpretation [...] H (BEAKER) (test code = 700) CALCIUM, [id number] 04:58:00 Test Item Value Reference Range Interpretation Comments CALCIUM IONIZED (BEAKER) (test 1.04 mmol/L 1.12-1.27 L code = 698) PH, BLOOD (BEAKER) (test code = 7.41 1810) RETICULOCYTE [id number] 04:51:00 Test Item Value Reference Range Interpretation Comments RETICULOCYTE COUNT PCT (BEAKER) (test 1.2 % 0.5-1.7 code = 575) POCT-GLUCOSE [id number] 20:49:00 Test Item Value Reference Range Interpretation Comments POC-GLUCOSE METER 202 mg/dL 70-[address] [facility] (BEAKER) (test [facility] = [facility] 1538) [address] CREATININE, RANDOM [id number] 18:38:00 Test Item Value Reference Range Interpretation Comments CREATININE URINE (BEAKER) (test 56.3 mg/dL code = 375) Reference Range: No NormalsPROTEIN, RANDOM [id number] 18:38:00 Test Item Value Reference Range Interpretation Comments PROTEIN, URINE (BEAKER) (test code 189 mg/dL 0-14 H = 1569) URINALYSIS W/ [id number] 18:34:00 Test Item Value Reference Range Interpretation [...] 516) SOURCE(BEAKER) (test code = Urine, Voided 2746) POCT-GLUCOSE [id number] 17:38:00 Test Item Value Reference Range Interpretation Comments POC-GLUCOSE METER 143 mg/dL 70-110 H TESTED AT [place] [address] (BEAKER) (test [facility] = [facility] 1538) [address] POCT-GLUCOSE [id number] 12:30:00 Test Item Value Reference Range Interpretation Comments POC-GLUCOSE METER 218 mg/dL 70-110 H TESTED AT [place] [address] (BEAKER) (test code = [facility] Dylon [facility] 1538) [address] POCT-GLUCOSE [id number] 08:00:00 Test Item Value Reference Range Interpretation Comments POC-GLUCOSE METER 134 mg/dL 70-110 H TESTED AT [place] [address] (BEAKER) (test code = [facility] Dylon [facility] 1538) [address] CBC W/PLT COUNT & AUTO [id number] 04:23:00 Test Item Value Reference Range Interpretation [...] (BEAKER) (test code = 2801) BASIC METABOLIC [id number] 04:13:00 Test Item Value Reference Range Interpretation [...] S NOT APPLICABLE FOR DIALYSIS PATIEN TS. [id number] 04:10:00 Test Item Value Reference Range Interpretation Comments PHOSPHORUS (BEAKER) (test code = 4.9 mg/dL 2.3-4.7 H 604) [id number] 04:10:00 Test Item Value Reference Range Interpretation Comments MAGNESIUM (BEAKER) (test code = 1.4 mg/dL 1.6-2.6 L 627) [id number] 04:08:00 Test Item Value Reference Range Interpretation Comments FIBRINOGEN LEVEL (BEAKER) (test 548 mg/dl 225-434 H code = 658) [id number] 04:08:00 Test Item Value Reference Range Interpretation Comments PARTIAL THROMBOPLASTIN TIME 37.7 seconds 22.5-36.0 H (BEAKER) (test code = 760) PROTHROMBIN [id number] 04:07:00 Test Item Value Reference Range Interpretation Comments PROTIME (BEAKER) (test code = 16.2 seconds 11.7-14.7 H 759) INR (BEAKER) (test code = 370) 1.3 <=5.9 RECOMMENDED COUMADIN/WARFARIN INR THERAPY RANGESSTANDARD DOSE: 2.0 - 3.0 Includes: PROPHYLAXIS forvenous thrombosis, systemic embolization; TREATMENT for venous thrombosis and/or pulmonary embolus.HIGH RISK: Target INR is 2.5-3.5 for patients with mechanical heart valves.[id number] 16:59:00 Test Item Value Reference Range Interpretation Comments ACTIVATED CLOTTING TIME 219 sec TEST ED [address] [facility] ([facility] (test code = J[place]IANO Osborne [place] [address]) [address] BASIC METABOLIC [id number] 14:25:00 Test Item Value Reference Range Interpretation [...] NOT APPLICABLE FOR DIALYSIS PATIEN TS. POCT-GLUCOSE [id number] 13:21:00 Test Item Value Reference Range Interpretation Comments POC-GLUCOSE METER 170 mg/dL 70-[address] [facility] (BEAKER) (test code = [place]IANO [place] 1533) [address] POTASSIUM-STAT [id number] 13:20:00 Test Item Value Reference Range Interpretation Comments POTASSIUM (BEAKER) (test code = 4.2 meq/L 3.6-5.5 379) SODIUM NA-STAT [id number] 13:20:00 Test Item Value Reference Range Interpretation Comments SODIUM (BEAKER) (test code = 381) 133 meq/L 135-148 L HGB/HCT (H&H) - STAT [id number] 12:34:00 Test Item Value Reference Range Interpretation Comments HEMOGLOBIN (BEAKER) (test code = 10.8 g/dL 12.0-15.0 L 410) HEMATOCRIT (BEAKER) (test code = 32.0 % 36.0-45.0 L 411) POTASSIUM-STAT [id number] 08:15:00 Test Item Value Reference Range Interpretation Comments POTASSIUM (BEAKER) (test code = 4.1 meq/L 3.6-5.5 379) BLOOD GAS, [id number] 08:15:00 Test Item Value Reference Range Interpretation [...] code = 1819) 70.0 % SODIUM NA-STAT [id number] 08:15:00 Test Item Value Reference Range Interpretation Comments SODIUM (BEAKER) (test code = 381) 130 meq/L 135-148 L GLUCOSE-STAT [id number] 08:15:00 Test Item Value Reference Range Interpretation Comments GLUCOSE RANDOM (BEAKER) (test code 172 mg/dL 70-110 H = 652) HGB/HCT (H&H) - STAT [id number] 08:15:00 Test Item Value Reference Range Interpretation Comments HEMOGLOBIN (BEAKER) (test code = 8.8 g/dL 12.0-15.0 L 410) HEMATOCRIT (BEAKER) (test code = 26.0 % 36.0-45.0 L 411) BASIC METABOLIC [id number] 07:37:00 Test Item Value Reference Range Interpretation [...] PATIEN TS. CBC W/PLT COUNT & AUTO [id number] 07:20:00 Test Item Value Reference Range Interpretation [...] PERCENT (BEAKER) (test code = 2801) POCT-GLUCOSE [id number] 07:03:00 Test Item Value Reference Range Interpretation Comments POC-GLUCOSE METER 186 mg/dL 70-[address] [facility] (BEAKER) (test code = [place]IANO [place] 1538) [address] B-TYPE NATRIURETIC FACTOR (BNP)[id number] 12:44:00 Test Item Value Reference Range Interpretation Comments B-TYPE NATRIURETIC PEPTIDE 1264 pg/mL 0-100 H (BEAKER) (test code = 700) [id number] 12:36:00 Test Item Value Reference Range Interpretation Comments MAGNESIUM (BEAKER) (test code = 1.6 mg/dL 1.6-2.6 627) BASIC METABOLIC [id number] 12:36:00 Test Item Value Reference Range Interpretation [...] NOT APPLICABLE FOR DIALYSIS PATIEN TS. POCT-GLUCOSE [id number] 12:04:00 Test Item Value Reference Range Interpretation Comments POC-GLUCOSE METER 274 mg/dL 70-[address] [facility] (BEAKER) (test code = [facility] D[place] 1538) [address] POCT-GLUCOSE [id number] 07:21:00 Test Item Value Reference Range Interpretation Comments POC-GLUCOSE METER 137 mg/dL 70-[address] [facility] (BEAKER) (test code = [facility] [place] 1538) [address] BASIC METABOLIC [id number] 05:10:00 Test Item Value Reference Range Interpretation [...] % 34.1-44.9 L 411) MEAN CORPUSCULAR VOLUME ([facility]) 83.4 fL 79.4-94.8 (test code = 753) MEAN CORPUSCULAR HEMOGLOBIN 25.7 pg 25.6-32.2 (AKER) (test code = 751) MEAN CORPUSCULAR HEMOGLOBIN CONC 30.9 GM/DL 32.2-35.5 L ([facility]) (test code = 752) RED CELL DISTRIBUTION WIDTH 15.2 % 11.7-14.4 H ([facility]) (test code = 412) PLATELET COUNT ([facility]) (test 320 K/CU MM 150-450 code = 756) MEAN PLATELET VOLUME ([facility]) 9.5 fL 9.4-12.3 (test code = 754) NUCLEATED RED BLOOD CELLS 0 /100 WBC 0-0 ([facility]) (test code = 413) POCT-GLUCOSE [id number] 21:23:00 Test Item Value Reference Range Interpretation Comments POC-GLUCOSE METER 240 mg/dL 70-110 H TESTED AT [place] [address] ([facility]) (test code = [facility] 1538) [address] POCT-GLUCOSE [id number] 16:42:00 Test Item Value Reference Range Interpretation Comments POC-GLUCOSE METER 234 mg/dL 70-110 H TESTED AT [place] [address] ([facility]) (test code = [facility] 1538) [address] POCT-GLUCOSE [id number] 13:22:00 Test Item Value Reference Range Interpretation Comments POC-GLUCOSE METER 166 mg/dL 70-110 H TESTED AT [place] [address] ([facility]) (test code = [facility] 1538) [address] RAD, CHEST, 1 VIEW, NON [id number] 09:43:00Reason for exam:->s/p ACBShould this be performed [...] Ring MDReport Verified Date/Time: 05/31/2017 09:43:30 ReadingLocation: [facility] B1 C013X Ortho Consult Reading Room POCT-GLUCOSE [id number] 06:57:00 Test Item Value Reference Range Interpretation Comments POC-GLUCOSE METER 136 mg/dL 70-[address] [facility] (BEAKER) (test code = [place]IANO [place] 1538) [address] CALCIUM, [id number] 06:41:00 Test Item Value Reference Range Interpretation Comments CALCIUM IONIZED (BEAKER) (test 1.10 mmol/L 1.12-1.27 L code = 698) PH, BLOOD (BEAKER) (test code = 7.42 1810) [id number] 06:17:00 Test Item Value Reference Range Interpretation Comments PHOSPHORUS (BEAKER) (test code = 3.3 mg/dL 2.3-4.7 604) [id number] 06:17:00 Test Item Value Reference Range Interpretation Comments MAGNESIUM (BEAKER) (test code = 1.8 mg/dL 1.6-2.6 627) BASIC METABOLIC [id number] 06:17:00 Test Item Value Reference Range Interpretation [...] PATIEN TS. CBC W/PLT COUNT & AUTO [id number] 05:07:00 Test Item Value Reference Range Interpretation [...] EOSINOPHILS ABSOLUTE COUNT 0.11 K/ L 0.04-0.36 ([facility]) (test code = 416) BASOPHILS ABSOLUTE COUNT ([facility]) 0.05 K/ L 0.01-0.08 (test code = 417) IMMATURE GRANULOCYTES-RELATIVE 1 % 0-1 PERCENT ([facility]) (test code = 2801) POCT-GLUCOSE [id number] 20:56:00 Test Item Value Reference Range Interpretation Comments POC-GLUCOSE METER 196 mg/dL 70-110 H TESTED AT [place] [address] ([facility]) (test code = [facility] 1538) [address] POCT-GLUCOSE [id number] 16:42:00 Test Item Value Reference Range Interpretation Comments POC-GLUCOSE METER 196 mg/dL 70-110 H TESTED AT [place] [address] ([facility]) (test code = [facility] 1538) [address] POCT-GLUCOSE [id number] 11:45:00 Test Item Value Reference Range Interpretation Comments POC-GLUCOSE METER 215 mg/dL 70-110 H TESTED AT [place] [address] ([facility]) (test code = [facility] 1538) [address] RAD, CHEST, 1 VIEW, NON [id number] 11:15:00Reason for exam:->s/p ACBShould this be performed at the bedside?->YesFINAL REPORT Chest one view compared to May 28, 2017 Discussion: Airspace opacities are seen in both lower lung regions, probably atelectasis. Correlate clinically for infection. I could not exclude small effusions. No pneumothorax. Upper lungs clear. Signed: Jeannette Navaeport Verified Date/Time: 05/30/2017 11:15:07 Reading Location: [facility] Radiology Reading Room CALCIUM, [id number] 09:21:00 Test Item Value Reference Range Interpretation Comments CALCIUM IONIZED (BEAKER) (test 1.11 mmol/L 1.12-1.27 L code = 698) PH, BLOOD ([facility]) (test code = 7.36 1810) BASIC METABOLIC [id number] 07:37:00 Test Item Value Reference Range Interpretation [...] 697) EGFR (BEAKER) (test 29 mL/min/1.73 ESTIMA EMRNA GFR IS code = 1092) sq m NOT ACCURATE CREATININE CLEARANCE IN PREDICTING GLOMERULAR FILTRATION RATE . ESTIMATED GFR I S NOT APPLICABLE FOR DIALYSIS PATIEN TS. [id number] 07:28:00 Test Item Value Reference Range Interpretation Comments PHOSPHORUS (BEAKER) (test code = 3.8 mg/dL 2.3-4.7 604) [id number] 07:28:00 Test Item Value Reference Range Interpretation Comments MAGNESIUM (BEAKER) (test code = 1.9 mg/dL 1.6-2.6 627) CBC W/PLT COUNT & AUTO [id number] 07:26:00 Test Item Value Reference Range Interpretation [...] PERCENT (BEAKER) (test code = 2801) POCT-GLUCOSE [id number] 07:21:00 Test Item Value Reference Range Interpretation Comments POC-GLUCOSE METER 146 mg/dL 70-[address] [facility] (test code = [place]IANO [place] 1538) [address] POCT-GLUCOSE [id number] 22:02:00 Test Item Value Reference Range Interpretation Comments POC-GLUCOSE METER 201 mg/dL 70-[address] [facility] (BEAKER) (test code = [place]IANO [place] 1538) [address] POCT-GLUCOSE [id number] 18:27:00 Test Item Value Reference Range Interpretation Comments POC-GLUCOSE METER 240 mg/dL 70-[address] [facility] (BEAKER) (test code = JULIANO Osborne [facility] 1538) [address] POCT-GLUCOSE [id number] 12:13:00 Test Item Value Reference Range Interpretation Comments POC-GLUCOSE METER 193 mg/dL 70-[address] [facility] (BEAKER) (test code = JULIANO Osborne [place] 1538) [address] POCT-GLUCOSE [id number] 09:02:00 Test Item Value Reference Range Interpretation Comments POC-GLUCOSE METER 132 mg/dL 70-[address] [facility] (BEAKER) (test code = JULIANO Osborne [facility] 1538) [address] CALCIUM, [id number] 05:42:00 Test Item Value Reference Range Interpretation Comments CALCIUM IONIZED (BEAKER) (test 1.12 mmol/L 1.12-1.27 code = 698) PH, BLOOD (BEAKER) (test code = 7.34 1810) COMPREHENSIVE METABOLIC [id number] 05:33:00 Test Item Value Reference Range Interpretation [...] S NOT APPLICABLE FOR DIALYSIS PATIEN TS. [id number] 05:32:00 Test Item Value Reference Range Interpretation Comments PHOSPHORUS (BEAKER) (test code = 3.6 mg/dL 2.3-4.7 604) [id number] 05:32:00 Test Item Value Reference Range Interpretation Comments MAGNESIUM (BEAKER) (test code = 2.2 mg/dL 1.6-2.6 627) CBC W/PLT COUNT & AUTO [id number] 05:01:00 Test Item Value Reference Range Interpretation [...] PERCENT (BEAKER) (test code = 2801) POCT-GLUCOSE [id number] 21:04:00 Test Item Value Reference Range Interpretation Comments POC-GLUCOSE METER 165 mg/dL 70-[address] [facility] ([facility]) (test code = [facility] 1538) [address] POCT-GLUCOSE [id number] 17:30:00 Test Item Value Reference Range Interpretation Comments POC-GLUCOSE METER 236 mg/dL 70-[address] [facility] ([facility]) (test code = [facility] 1538) [address] RAD, CHEST, 1 VIEW, NON [id number] 13:53:00Reason for exam:->assess for ill-defined opacityShould this [...] MDReport Verified Date/Time: 05/28/2017 13:53:03 Reading Location: [address] Radiology Reading Room POCT-GLUCOSE [id number] 11:53:00 Test Item Value Reference Range Interpretation Comments POC-GLUCOSE METER 215 mg/dL 70-110 H TESTED AT [place] [address] (BEAKER) (test code = [facility] 1538) [address] POCT-GLUCOSE [id number] 08:32:00 Test Item Value Reference Range Interpretation Comments POC-GLUCOSE METER 168 mg/dL 70-110 H TESTED AT [place] [address] [facility] (test code = [facility] 1538) [address] CALCIUM, [id number] 05:44:00 Test Item Value Reference Range Interpretation Comments CALCIUM IONIZED (BEAKER) (test 1.09 mmol/L 1.12-1.27 L code = 698) PH, BLOOD (BEAKER) (test code = 7.38 1810) [id number] 05:44:00 Test Item Value Reference Range Interpretation Comments PHOSPHORUS (BEAKER) (test code = 3.5 mg/dL 2.3-4.7 604) [id number] 05:44:00 Test Item Value Reference Range Interpretation Comments MAGNESIUM (BEAKER) (test code = 1.9 mg/dL 1.6-2.6 627) BASIC METABOLIC [id number] 05:44:00 Test Item Value Reference Range Interpretation [...] PATIEN TS. CBC W/PLT COUNT & AUTO [id number] 05:05:00 Test Item Value Reference Range Interpretation [...] LYMPHOCYTES ABSOLUTE COUNT 1.80 K/ L 1.18-3.74 ([facility]) (test code = 414) MONOCYTES ABSOLUTE COUNT (BEAKER) 0.45 K/ L 0.24-0.36 H (test code = 415) EOSINOPHILS ABSOLUTE COUNT 0.25 K/ L 0.04-0.36 ([facility]) (test code = 416) BASOPHILS ABSOLUTE COUNT ([facility]) 0.05 K/ L 0.01-0.08 (test code = 417) IMMATURE GRANULOCYTES-RELATIVE 1 % 0-1 PERCENT ([facility]) (test code = 2801) POCT-GLUCOSE [id number] 21:03:00 Test Item Value Reference Range Interpretation Comments POC-GLUCOSE METER 173 mg/dL 70-110 H TESTED AT [place] [address] ([facility]) (test code = JULIANO Osborne [facility] 1538) [id number] 18:15:00 Test Item Value Reference Range Interpretation Comments ACTIVATED CLOTTING TIME 147 sec TEST ED AT [place] [address] ([facility]) (test code = JULIANO Osborne [facility] 441) [address] [id number] 18:15:00 Test Item Value Reference Range Interpretation Comments ACTIVATED CLOTTING TIME 246 sec TEST ED AT [place] [address] ([facility]) (test code = JULIANO Osborne [place] [address]) [address] POCT-GLUCOSE [id number] 12:39:00 Test Item Value Reference Range Interpretation Comments POC-GLUCOSE METER 219 mg/dL 70-110 H TESTED AT [place] [address] ([facility]) (test code = JULIANO Osborne [facility] 1538) [address] RAD, CHEST, 1 VIEW, NON [id number] 10:11:00Reason for exam:->pl effusionShould this be performed at the bedside?->YesFINAL REPORT Chest one view compared to May 26 Discussion: There is cardiac prominence. Upper lungs are clear. Ill-defined basilar densities are similar probably atelectasis. No gross effusion or pneumothorax with bilateral chest tubes in place. Signed: Jeannette Nava Verified Date/Time: 05/27/2017 10:11:44 Reading Location: [facility] Radiology Reading Room POCT-GLUCOSE METER 2017-05-27 07:05:00 Test Item Value Reference Range Interpretation Comments POC-GLUCOSE METER 167 mg/dL 70-[address] [facility] (BEAKER) (test code = JULIANO [place] 1538) [address] CALCIUM, [id number] 06:20:00 Test Item Value Reference Range Interpretation Comments CALCIUM IONIZED (BEAKER) (test 0.98 mmol/L 1.12-1.27 L code = 698) PH, BLOOD (BEAKER) (test code = 7.50 1810) [id number] 04:56:00 Test Item Value Reference Range Interpretation Comments PHOSPHORUS (BEAKER) (test code = 2.6 mg/dL 2.3-4.7 604) [id number] 04:56:00 Test Item Value Reference Range Interpretation Comments MAGNESIUM (BEAKER) (test code = 2.0 mg/dL 1.6-2.6 627) BASIC METABOLIC [id number] 04:56:00 Test Item Value Reference Range Interpretation [...] PATIEN TS. CBC W/PLT COUNT & AUTO [id number] 04:36:00 Test Item Value Reference Range Interpretation [...] [facility]) (test code = 2801) POCT-GLUCOSE [id number] 21:29:00 Test Item Value Reference Range Interpretation Comments POC-GLUCOSE METER 147 mg/dL 70-110 H TESTED AT [place] [address] ([facility]) (test code = JULIANO Osborne [facility] 1538) [address] POCT-GLUCOSE [id number] 17:51:00 Test Item Value Reference Range Interpretation Comments POC-GLUCOSE METER 224 mg/dL 70-110 H TESTED AT [place] [address] ([facility]) (test code = JULIANO Osborne [facility] 1538) [address] POCT-GLUCOSE [id number] 13:53:00 Test Item Value Reference Range Interpretation Comments POC-GLUCOSE METER 182 mg/dL 70-110 H TESTED AT [place] [address] ([facility]) (test code = [facility] Dylon [facility] 1538) [address] RAD, CHEST, 1 VIEW, NON [id number] 08:44:00Reason for exam:->pl effusionShould this be performed [...] No other significant change. Signed: Olaf Ortega [facility] Verified Date/Time: 05/26/2017 08:44:25 Reading Location: [address] Radiology Reading Room POCT- GLUCOSE [id number] 07:43:00 Test Item Value Reference Range Interpretation Comments POC-GLUCOSE METER 113 mg/dL 70-110 H TESTED AT [place] [address] ([facility]) (test code = [facility] D[place] [facility] 1538) [address] CALCIUM, [id number] 06:31:00 Test Item Value Reference Range Interpretation Comments CALCIUM IONIZED ([facility]) (test 1.07 mmol/L 1.12-1.27 L code = 698) PH, BLOOD (BEAKER) (test code = 7.38 1810) [id number] 04:51:00 Test Item Value Reference Range Interpretation Comments PHOSPHORUS (BEAKER) (test code = 3.2 mg/dL 2.3-4.7 604) [id number] 04:51:00 Test Item Value Reference Range Interpretation Comments MAGNESIUM (BEAKER) (test code = 2.1 mg/dL 1.6-2.6 627) BASIC METABOLIC [id number] 04:51:00 Test Item Value Reference Range Interpretation [...] PATIEN TS. CBC W/PLT COUNT & AUTO [id number] 04:27:00 Test Item Value Reference Range Interpretation [...] PERCENT (BEAKER) (test code = 2801) POCT-GLUCOSE [id number] 23:48:00 Test Item Value Reference Range Interpretation Comments POC-GLUCOSE METER 123 mg/dL 70-[address] [facility] (BEAKER) (test code = JULIANO REYEZ 1538) [address] POCT-GLUCOSE [id number] 16:46:00 Test Item Value Reference Range Interpretation Comments POC-GLUCOSE METER 178 mg/dL 70-[address] [facility] (BEAKER) (test code = JULIANO [place] 1538) [address] BASIC METABOLIC [id number] 05:53:00 Test Item Value Reference Range Interpretation [...] S NOT APPLICABLE FOR DIALYSIS PATIEN TS. [id number] 05:52:00 Test Item Value Reference Range Interpretation Comments PHOSPHORUS (BEAKER) (test code = 4.2 mg/dL 2.3-4.7 604) [id number] 05:52:00 Test Item Value Reference Range Interpretation Comments MAGNESIUM (BEAKER) (test code = 2.3 mg/dL 1.6-2.6 627) CALCIUM, [id number] 05:27:00 Test Item Value Reference Range Interpretation Comments CALCIUM IONIZED (BEAKER) (test 1.12 mmol/L 1.12-1.27 code = 698) PH, BLOOD (BEAKER) (test code = 7.38 1810) CBC W/PLT COUNT & AUTO [id number] 05:07:00 Test Item Value Reference Range Interpretation [...] = 2801) RAD, CHEST, 1 VIEW, NON [id number] 04:45:00Reason for exam:->pl effusionShould this be performed at the bedside?->YesFINAL REPORT RAD, CHEST, 1 VIEW, NON DEPT INDICATION: pl effusion COMPARISON:Prior day's exam FINDINGS: Portable frontal view of the chest. IMPRESSION: Support Lines: Stable.Lungs and pleura: Unchanged airspace and pleural opacities. No pneumothorax.Heart and mediastinum: Stable contours. Stable surgical changes.Additional findings: None. Signed: JR Boswell Robert MDReport Verified Date/Time: 05/25/2017 04:45:08 Reading Location: [facility] C013Y CT Body Reading Room POCT-GLUCOSE [id number] 01:52:00 Test Item Value Reference Range Interpretation Comments POC-GLUCOSE METER 126 mg/dL 70-110 H TESTED AT [place] [address] ([facility]) (test code = JULIANO Osborne [facility] 1538) [address] POCT-GLUCOSE [id number] 13:07:00 Test Item Value Reference Range Interpretation Comments POC-GLUCOSE METER 118 mg/dL 70-110 H TESTED AT [place] [address] ([facility]) (test code = JULIANO Osborne [facility] 1538) [address] BRONCHIAL CULTURE + GRAM [id number] 11:35:00 Test Item Value Reference Range Interpretation Comments CULTURE ([facility]) (test code = 1095) Amikacin (test code [...] <1+ gram (BEAKER) (test code = positive 129263) cocci in pairs GRAM STAIN RESULT 1+ gram (BEAKER) (test code = variable rods 715768) 1+ Normal respiratory todd presentRAD, CHEST, 1 VIEW, NON [id number] 06:50:00Reason for exam:->pl effusionShould this be performed at the bedside?->YesFINAL REPORT RAD, CHEST, 1 VIEW, NON DEPT INDICATION: pl effusion COMPARISON:Prior day's exam FINDINGS: Portable frontal view of the chest. IMPRESSION: Support Lines: Stable.Lungs and pleura: Unchanged airspace and pleural opacities. No pneumothorax.Heart and mediastinum: Stable contours. Stable surgical changes.Additional findings: None. Signed: JR Boswell Robert MDReport Verified Date/Time: 05/24/2017 06:50:08 Reading Location: [facility] C013Y CT Body Reading Room BASIC METABOLIC [id number] 04:19:00 Test Item Value Reference Range Interpretation [...] NOT APPLICABLE FOR DIALYSIS PATIEN TS. CALCIUM, [id number] 04:16:00 Test Item Value Reference Range Interpretation Comments CALCIUM IONIZED (BEAKER) (test 1.06 mmol/L 1.12-1.27 L code = 698) PH, BLOOD (BEAKER) (test code = 7.40 1810) [id number] 04:11:00 Test Item Value Reference Range Interpretation Comments PHOSPHORUS (BEAKER) (test code = 6.0 mg/dL 2.3-4.7 H 604) [id number] 04:11:00 Test Item Value Reference Range Interpretation Comments MAGNESIUM (BEAKER) (test code = 2.4 mg/dL 1.6-2.6 627) CBC W/PLT COUNT & AUTO [id number] 03:50:00 Test Item Value Reference Range Interpretation [...] PERCENT (BEAKER) (test code = 2801) POCT-GLUCOSE [id number] 20:45:00 Test Item Value Reference Range Interpretation Comments POC-GLUCOSE METER 143 mg/dL 70-110 H TESTED AT [place] [address] ([facility]) (test code = [facility] [place] [facility] 1538) [address] POCT-GLUCOSE [id number] 20:45:00 Test Item Value Reference Range Interpretation Comments POC-GLUCOSE METER 145 mg/dL 70-110 H TESTED AT [place] [id number] ([facility]) (test code = [facility] [place] [facility] 1538) [address] [id number] 13:37:00 Test Item Value Reference Range Interpretation Comments PREALBUMIN (AKER) 10 mg/dL 14-45 L Specimen slightly (test code = 586) hemolyzed OXYGEN SATURATION, [id number] 12:31:00 Test Item Value Reference Range Interpretation Comments O2 SATURATION (MEASURED) (AKER) 94.5 % (test code = 1455) [id number] 11:02:00 Test Item Value Reference Range Interpretation Comments PREALBUMIN (BEAKER) (test code = 10 mg/dL 14-45 L 586) RAD, CHEST, 1 VIEW, NON [id number] 05:14:00while patient is intubated or has chest [...] Verified Date/Time: 05/23/2017 05:14:04 Reading Location: [address] Body Reading Room BASIC METABOLIC [id number] 03:48:00 Test Item Value Reference Range Interpretation [...] S NOT APPLICABLE FOR DIALYSIS PATIEN TS. [id number] 03:46:00 Test Item Value Reference Range Interpretation Comments MAGNESIUM (BEAKER) 2.4 mg/dL 1.6-2.6 Specimen slightly (test code = 627) hemolyzed [id number] 03:46:00 Test Item Value Reference Range Interpretation Comments PHOSPHORUS (BEAKER) 6.5 mg/dL 2.3-4.7 H Specimen slightly (test code = 604) hemolyzed CBC W/PLT COUNT & AUTO [id number] 03:26:00 Test Item Value Reference Range Interpretation [...] (BEAKER) (test code = 2801) BLOOD GAS, [id number] 03:18:00 Test Item Value Reference Range Interpretation [...] (test code = 1819) 36.0 % CALCIUM, [id number] 16:32:00 Test Item Value Reference Range Interpretation Comments CALCIUM IONIZED (BEAKER) (test 1.11 mmol/L 1.12-1.27 L code = 698) PH, BLOOD (BEAKER) (test code = 7.39 1810) BASIC METABOLIC [id number] 15:43:00 Test Item Value Reference Range Interpretation [...] NOT APPLICABLE FOR DIALYSIS PATIEN TS. POCT-GLUCOSE [id number] 12:53:00 Test Item Value Reference Range Interpretation Comments POC-GLUCOSE METER 118 mg/dL 70-110 H TESTED AT [place] [address] ([facility]) (test code = [facility] [place] [facility] 1538) [address] BLOOD GAS, [id number] 10:42:00 Test Item Value Reference Range Interpretation [...] (test code = 1819) 40.0 % POCT-GLUCOSE [id number] 06:46:00 Test Item Value Reference Range Interpretation Comments POC-GLUCOSE METER 106 mg/dL 70-110 TESTED AT [place] [address] ([facility]) (test code = [facility] [place] [facility] 1538) [address] RAD, CHEST, 1 VIEW, NON [id number] 05:05:00while patient is intubated or has chest [...] MDRepemily Verified Date/Time: 05/22/2017 05:05:00 Reading Location: [facility] B1 C013Y CT Body ReadingRoom BASIC METABOLIC [id number] 05:00:00 Test Item Value Reference Range Interpretation [...] S NOT APPLICABLE FOR DIALYSIS PATIEN TS. [id number] 04:41:00 Test Item Value Reference Range Interpretation Comments PHOSPHORUS (BEAKER) (test code = 6.4 mg/dL 2.3-4.7 H 604) [id number] 04:41:00 Test Item Value Reference Range Interpretation Comments MAGNESIUM (BEAKER) (test code = 2.6 mg/dL 1.6-2.6 627) CALCIUM, [id number] 04:26:00 Test Item Value Reference Range Interpretation Comments CALCIUM IONIZED (BEAKER) (test 1.09 mmol/L 1.12-1.27 L code = 698) PH, BLOOD (BEAKER) (test code = 7.40 1810) OXYGEN SATURATION, [id number] 04:25:00 Test Item Value Reference Range Interpretation Comments O2 SATURATION (MEASURED) (BEAKER) 77.0 % (test code = 1455) CBC W/PLT COUNT & AUTO [id number] 04:17:00 Test Item Value Reference Range Interpretation [...] code = 2801) LACTIC ACID, ARTERIAL, WHOLE [id number] 00:07:00 Test Item Value Reference Range Interpretation Comments LACTATE BLOOD 1.0 mmol/L 0.5-2.2 Specimen sligh tly ARTERIAL (2) (BEAKER) hemoly zed (test code = 2874) Effective 08/02/2015: Units/Reference Range ChangeNew: 0.5-2.2 mmol/L Previous: 5-20 mg/dLPOCT-GLUCOSE [id number] 23:47:00 Test Item Value Reference Range Interpretation Comments POC-GLUCOSE METER 180 mg/dL 70-[address] [facility] (BEAKER) (test code = MATTHIASAMANDA REYE[place] 1538) [address] BLOOD GAS, [id number] 23:46:00 Test Item Value Reference Range Interpretation [...] code = 1819) 100.0 % SODIUM NA-STAT [id number] 23:46:00 Test Item Value Reference Range Interpretation Comments SODIUM (BEAKER) (test code = 381) 134 meq/L 135-148 L GLUCOSE-STAT [id number] 23:46:00 Test Item Value Reference Range Interpretation Comments GLUCOSE RANDOM (BEAKER) (test code 119 mg/dL 70-110 H = 652) HGB/HCT (H&H) - STAT [id number] 23:46:00 Test Item Value Reference Range Interpretation Comments HEMOGLOBIN (BEAKER) (test code = 8.8 g/dL 12.0-15.0 L 410) HEMATOCRIT (BEAKER) (test code = 26.0 % 36.0-45.0 L 411) OXYGEN SATURATION, [id number] 23:45:00 Test Item Value Reference Range Interpretation Comments O2 SATURATION (MEASURED) (BEAKER) 68.1 % (test code = 1455) POTASSIUM-STAT [id number] 23:45:00 Test Item Value Reference Range Interpretation Comments POTASSIUM (BEAKER) (test code = 5.5 meq/L 3.6-5.5 379) POCT-GLUCOSE [id number] 20:58:00 Test Item Value Reference Range Interpretation Comments POC-GLUCOSE METER 133 mg/dL 70-[address] [facility] (test code = JULIANO [place] 1538) [address] POCT-GLUCOSE [id number] 17:58:00 Test Item Value Reference Range Interpretation Comments POC-GLUCOSE METER 210 mg/dL 70-[address] [facility] (test code = JULIANO [place] 1538) [address] POCT-GLUCOSE [id number] 17:58:00 Test Item Value Reference Range Interpretation Comments POC-GLUCOSE METER 211 mg/dL 70-[address] [facility] ([facility] (test code = JULIANO [place] 1538) [address] POCT-GLUCOSE [id number] 17:58:00 Test Item Value Reference Range Interpretation Comments POC-GLUCOSE METER 232 mg/dL 70-[address] [facility] ([facility]) (test code = JULIANO [place] 1538) [address] POCT-GLUCOSE [id number] 17:58:00 Test Item Value Reference Range Interpretation Comments POC-GLUCOSE METER 262 mg/dL 70-110 H TESTED AT [place] [address] (BEAKER) (test code = [facility] [place] [facility] 1538) [address] BLOOD GAS, [id number] 17:01:00 Test Item Value Reference Range Interpretation [...] (test code = 1819) 60.0 % POTASSIUM-STAT [id number] 17:00:00 Test Item Value Reference Range Interpretation Comments POTASSIUM (BEAKER) (test code = 4.8 meq/L 3.6-5.5 379) POCT-GLUCOSE [id number] 15:52:00 Test Item Value Reference Range Interpretation Comments POC-GLUCOSE METER 267 mg/dL 70-110 H TESTED AT [place] [address] (BEAKER) (test code = [facility] [place] [facility] 1538) [address] POCT-GLUCOSE [id number] 14:42:00 Test Item Value Reference Range Interpretation Comments POC-GLUCOSE METER 231 mg/dL 70-110 H TESTED AT [place] [address] (BEAKER) (test code = [facility] 1538) [address] BODY FLUID CELL COUNT WITH [id number] 14:41:00 Test Item Value Reference Range Interpretation [...] Tube (test code = 2873) BASIC METABOLIC [id number] 14:11:00 Test Item Value Reference Range Interpretation [...] S NOT APPLICABLE FOR DIALYSIS PATIEN TS. [id number] 14:08:00 Test Item Value Reference Range Interpretation Comments PHOSPHORUS (BEAKER) (test code = 7.2 mg/dL 2.3-4.7 H 604) [id number] 14:08:00 Test Item Value Reference Range Interpretation Comments MAGNESIUM (BEAKER) (test code = 2.6 mg/dL 1.6-2.6 627) POCT-GLUCOSE [id number] 12:49:00 Test Item Value Reference Range Interpretation Comments POC-GLUCOSE METER 224 mg/dL 70-[address] [facility] (BEAKER) (test code = JULIANO REYEZ 1538) [address] POCT-GLUCOSE [id number] 12:49:00 Test Item Value Reference Range Interpretation Comments POC-GLUCOSE METER 248 mg/dL 70-[address] [facility] (BEAKER) (test code = JULIANO [place] 1538) [address] RAD, CHEST, 1 VIEW, NON [id number] 12:32:00Reason for exam:->re-intubationShould this be performed at [...] pneumothorax is grossly unchanged. Signed: Mona White [facility] Verified Date/Time: 05/21/2017 12:32:08 Reading Location: [facility] Radiology Reading Room POTASSIUM-STAT [id number] 12:28:00 Test Item Value Reference Range Interpretation Comments POTASSIUM (BEAKER) (test code = 5.5 meq/L 3.6-5.5 379) BLOOD GAS, [id number] 12:28:00 Test Item Value Reference Range Interpretation [...] code = 1819) 100.0 % BLOOD GAS, [id number] 10:53:00 Test Item Value Reference Range Interpretation [...] 36.0 % RAD, CHEST, 1 VIEW, NON [id number] 08:46:00while patient is intubated or has chest [...] MDReport Verified Date/Time: 05/21/2017 08:46:27 Reading Location: [facility] Radiology Reading Room BLOOD GAS, [id number] 05:41:00 Test Item Value Reference Range Interpretation [...] (BEAKER) (test code = 1819) 40 CALCIUM, [id number] 04:35:00 Test Item Value Reference Range Interpretation Comments CALCIUM IONIZED (BEAKER) (test 1.13 mmol/L 1.12-1.27 code = 698) PH, BLOOD (BEAKER) (test code = 7.32 1810) BLOOD GAS, [id number] 04:28:00 Test Item Value Reference Range Interpretation [...] (BEAKER) (test code = 1819) 40.0 % [id number] 04:20:00 Test Item Value Reference Range Interpretation Comments PHOSPHORUS (BEAKER) (test code = 6.2 mg/dL 2.3-4.7 H 604) [id number] 04:20:00 Test Item Value Reference Range Interpretation Comments MAGNESIUM (BEAKER) (test code = 2.4 mg/dL 1.6-2.6 627) HEPATIC FUNCTION [id number] 04:20:00 Test Item Value Reference Range Interpretation [...] = 11 U/L 6-55 347) BASIC METABOLIC [id number] 04:20:00 Test Item Value Reference Range Interpretation [...] APPLICABLE FOR DIALYSIS PATIEN TS. OXYGEN SATURATION, [id number] 04:18:00 Test Item Value Reference Range Interpretation Comments O2 SATURATION (MEASURED) (BEAKER) 68.0 % (test code = 1455) LACTIC ACID, ARTERIAL, WHOLE [id number] 04:12:00 Test Item Value Reference Range Interpretation Comments LACTATE BLOOD ARTERIAL (2) 1.0 mmol/L 0.5-2.2 (BEAKER) (test code = 2874) Effective 08/02/2015: Units/Reference Range ChangeNew: 0.5-2.2 mmol/L Previous: 5-20 mg/dLCBC W/PLT COUNT & AUTO [id number] 04:00:00 Test Item Value Reference Range Interpretation [...] (BEAKER) (test code = 2801) BLOOD GAS, [id number] 00:06:00 Test Item Value Reference Range Interpretation [...] (BEAKER) (test code = 1819) 40.0 % [id number] 18:55:00 Test Item Value Reference Range Interpretation Comments PHOSPHORUS (BEAKER) (test code = 4.8 mg/dL 2.3-4.7 H 604) [id number] 18:55:00 Test Item Value Reference Range Interpretation Comments MAGNESIUM (BEAKER) (test code = 2.3 mg/dL 1.6-2.6 627) BASIC METABOLIC [id number] 18:55:00 Test Item Value Reference Range Interpretation [...] DIALYSIS PATIEN TS. LACTIC ACID, ARTERIAL, WHOLE [id number] 18:53:00 Test Item Value Reference Range Interpretation Comments LACTATE BLOOD 0.9 mmol/L 0.5-2.2 Specimen sligh tly ARTERIAL (2) (BEAKER) hemoly zed (test code = 2874) Effective 08/02/2015: Units/Reference Range ChangeNew: 0.5-2.2 mmol/L Previous: 5-20 mg/dLRAD, CHEST, 1 VIEW, NON [id number] 18:44:00Reason for exam:- >postop cardiacShould this be [...] MDReport Verified Date/Time: 05/20/2017 18:44:30 Reading Location: [facility] B1 C013W Consult Reading Room Electronically signed by: MIGUEL BHAKTA M.D. on05/20/2017 06:44 PMCBC W/PLT COUNT & AUTO [id number] 18:38:00 Test Item Value Reference Range Interpretation [...] (BEAKER) (test code = 2801) OXYGEN SATURATION, [id number] 18:36:00 Test Item Value Reference Range Interpretation Comments O2 SATURATION (MEASURED) (BEAKER) 72.5 % (test code = 1455) From distal port of IJ central venous catheterSODIUM NA-STAT [id number] 18:30:00 Test Item Value Reference Range Interpretation Comments SODIUM (BEAKER) (test code = 381) 132 meq/L 135-148 L HGB/HCT (H&H) - STAT [id number] 18:30:00 Test Item Value Reference Range Interpretation Comments HEMOGLOBIN (BEAKER) (test code = 9.4 g/dL 12.0-15.0 L 410) HEMATOCRIT (BEAKER) (test code = 28.0 % 36.0-45.0 L 411) GLUCOSE-STAT [id number] 18:30:00 Test Item Value Reference Range Interpretation Comments GLUCOSE RANDOM (BEAKER) (test code 159 mg/dL 70-110 H = 652) BLOOD GAS, [id number] 18:30:00 Test Item Value Reference Range Interpretation [...] (test code = 1819) 60.0 % CALCIUM, [id number] 18:30:00 Test Item Value Reference Range Interpretation Comments CALCIUM IONIZED (BEAKER) (test 0.94 mmol/L 1.12-1.27 L code = 698) PH, BLOOD (BEAKER) (test code = 7.34 1810) POTASSIUM-STAT [id number] 18:28:00 Test Item Value Reference Range Interpretation [...] (test 0.0 % 0.0-5.0 code = 1414) [id number] 17:53:00 Test Item Value Reference Range Interpretation Comments ACTIVATED CLOTTING TIME 103 sec TEST ED AT [place] [address] ([facility]) (test code = MAT[place]ASAMANDA [place] 441) [address] [id number] 17:53:00 Test Item Value Reference Range Interpretation Comments ACTIVATED CLOTTING TIME 466 sec TEST ED AT [place] [address] ([facility]) (test code = MAT[place]ASAMANDA [place] 441) [address] [id number] 17:53:00 Test Item Value Reference Range Interpretation Comments ACTIVATED CLOTTING TIME 543 sec TEST ED AT [place] [address] ([facility]) (test code = MAT[place]ASAMANDA [place] 441) [address] [id number] 17:53:00 Test Item Value Reference Range Interpretation Comments ACTIVATED CLOTTING TIME 549 sec TEST ED AT [place] [address] ([facility]) (test code = MATTHIASAMANDA Osborne [place] 441) [address] [id number] 17:53:00 Test Item Value Reference Range Interpretation Comments ACTIVATED CLOTTING TIME 632 sec TEST ED AT [place] [address] ([facility]) (test code = [place]ASAMANDA [place] 441) [address] [id number] 17:53:00 Test Item Value Reference Range Interpretation Comments ACTIVATED CLOTTING TIME 494 sec TEST ED AT [place] [address] ([facility]) (test code = JULIANO Osborne [place] 441) [address] [id number] 17:53:00 Test Item Value Reference Range Interpretation Comments ACTIVATED CLOTTING TIME 587 sec TEST ED AT [place] [address] ([facility]) (test code = JULIANO Osborne [place] [address]) [address] [id number] 17:53:00 Test Item Value Reference Range Interpretation Comments ACTIVATED CLOTTING TIME 626 sec TEST ED AT [place] [address] ([facility]) (test code = JULIANO Osborne [place] [address]) [address] [id number] 17:52:00 Test Item Value Reference Range Interpretation Comments ACTIVATED CLOTTING TIME 808 sec TEST ED AT [place] [address] ([facility]) (test code = JULIANO Osborne [place] [address]) [address] [id number] 16:54:00 Test Item Value Reference Range Interpretation Comments PARTIAL THROMBOPLASTIN TIME 40.2 seconds 22.5-36.0 H ([facility]) (test code = 760) [id number] 16:53:00 Test Item Value Reference Range Interpretation Comments FIBRINOGEN LEVEL ([facility]) (test 306 mg/dl 225-434 code = 658) PROTHROMBIN [id number] 16:50:00 Test Item Value Reference Range Interpretation Comments PROTIME ([facility]) (test code = 19.6 seconds 11.7-14.7 H 759) INR ([facility]) (test code = 370) 1.7 <=5.9 RECOMMENDED COUMADIN/WARFARIN INR THERAPY RANGESSTANDARD DOSE: 2.0 - 3.0 Includes: PROPHYLAXIS forvenous thrombosis, systemic embolization; TREATMENT for venous thrombosis and/or pulmonary embolus.HIGH RISK: Target INR is 2.5-3.5 for patients with mechanical heart valves.PLATELET [id number] 16:45:00 Test Item Value Reference Range Interpretation Comments PLATELET COUNT ([facility]) (test 136 K/CU MM 150-450 L code = 756) POTASSIUM-STAT [id number] 16:15:00 Test Item Value Reference Range Interpretation Comments POTASSIUM ([facility]) (test code = 4.9 meq/L 3.6-5.5 379) BLOOD GAS, [id number] 16:15:00 Test Item Value Reference Range Interpretation [...] code = 1819) 100.0 % SODIUM NA-STAT [id number] 16:15:00 Test Item Value Reference Range Interpretation Comments SODIUM (BEAKER) (test code = 381) 131 meq/L 135-148 L GLUCOSE-STAT [id number] 16:15:00 Test Item Value Reference Range Interpretation Comments GLUCOSE RANDOM (BEAKER) (test code 198 mg/dL 70-110 H = 652) HGB/HCT (H&H) - STAT [id number] 16:15:00 Test Item Value Reference Range Interpretation Comments HEMOGLOBIN (BEAKER) (test code = 7.5 g/dL 12.0-15.0 L 410) HEMATOCRIT (BEAKER) (test code = 22.0 % 36.0-45.0 L 411) CALCIUM, [id number] 16:14:00 Test Item Value Reference Range Interpretation Comments CALCIUM IONIZED (BEAKER) (test 0.91 mmol/L 1.12-1.27 L code = 698) PH, BLOOD (BEAKER) (test code = 7.39 1810) BLOOD GAS, [id number] 15:39:00 Test Item Value Reference Range Interpretation [...] code = 1819) 70.0 % SODIUM NA-STAT [id number] 15:39:00 Test Item Value Reference Range Interpretation Comments SODIUM (BEAKER) (test code = 381) 131 meq/L 135-148 L GLUCOSE-STAT [id number] 15:39:00 Test Item Value Reference Range Interpretation Comments GLUCOSE RANDOM (BEAKER) (test code 186 mg/dL 70-110 H = 652) HGB/HCT (H&H) - STAT [id number] 15:39:00 Test Item Value Reference Range Interpretation Comments HEMOGLOBIN (BEAKER) (test code = 7.5 g/dL 12.0-15.0 L 410) HEMATOCRIT (BEAKER) (test code = 22.0 % 36.0-45.0 L 411) POTASSIUM-STAT [id number] 15:38:00 Test Item Value Reference Range Interpretation Comments POTASSIUM (BEAKER) (test code = 5.3 meq/L 3.6-5.5 379) BLOOD GAS, [id number] 15:24:00 Test Item Value Reference Range Interpretation [...] code = 1819) 70.0 % SODIUM NA-STAT [id number] 15:24:00 Test Item Value Reference Range Interpretation Comments SODIUM (BEAKER) (test code = 381) 130 meq/L 135-148 L GLUCOSE-STAT [id number] 15:24:00 Test Item Value Reference Range Interpretation Comments GLUCOSE RANDOM (BEAKER) (test code 189 mg/dL 70-110 H = 652) HGB/HCT (H&H) - STAT [id number] 15:24:00 Test Item Value Reference Range Interpretation Comments HEMOGLOBIN (BEAKER) (test code = 6.7 g/dL 12.0-15.0 L 410) HEMATOCRIT (BEAKER) (test code = 20.0 % 36.0-45.0 L 411) POTASSIUM-STAT [id number] 15:23:00 Test Item Value Reference Range Interpretation Comments POTASSIUM (BEAKER) (test code = 5.4 meq/L 3.6-5.5 379) BLOOD GAS, [id number] 15:07:00 Test Item Value Reference Range Interpretation [...] code = 1819) 70.0 % SODIUM NA-STAT [id number] 15:07:00 Test Item Value Reference Range Interpretation Comments SODIUM (BEAKER) (test code = 381) 129 meq/L 135-148 L GLUCOSE-STAT [id number] 15:07:00 Test Item Value Reference Range Interpretation Comments GLUCOSE RANDOM (BEAKER) (test code 172 mg/dL 70-110 H = 652) HGB/HCT (H&H) - STAT [id number] 15:07:00 Test Item Value Reference Range Interpretation Comments HEMOGLOBIN (BEAKER) (test code = 7.1 g/dL 12.0-15.0 L 410) HEMATOCRIT (BEAKER) (test code = 21.0 % 36.0-45.0 L 411) POTASSIUM-STAT [id number] 15:04:00 Test Item Value Reference Range Interpretation Comments POTASSIUM (BEAKER) (test code = 5.0 meq/L 3.6-5.5 379) BLOOD GAS, [id number] 14:21:00 Test Item Value Reference Range Interpretation [...] code = 1819) 70.0 % SODIUM NA-STAT [id number] 14:21:00 Test Item Value Reference Range Interpretation Comments SODIUM (BEAKER) (test code = 381) 133 meq/L 135-148 L GLUCOSE-STAT [id number] 14:21:00 Test Item Value Reference Range Interpretation Comments GLUCOSE RANDOM (BEAKER) (test code 160 mg/dL 70-110 H = 652) HGB/HCT (H&H) - STAT [id number] 14:21:00 Test Item Value Reference Range Interpretation Comments HEMOGLOBIN (BEAKER) (test code = 7.5 g/dL 12.0-15.0 L 410) HEMATOCRIT (BEAKER) (test code = 22.0 % 36.0-45.0 L 411) POTASSIUM-STAT [id number] 14:20:00 Test Item Value Reference Range Interpretation Comments POTASSIUM (BEAKER) (test code = 4.7 meq/L 3.6-5.5 379) BLOOD GAS, [id number] 13:58:00 Test Item Value Reference Range Interpretation [...] code = 1819) 80.0 % SODIUM NA-STAT [id number] 13:58:00 Test Item Value Reference Range Interpretation Comments SODIUM (BEAKER) (test code = 381) 132 meq/L 135-148 L GLUCOSE-STAT [id number] 13:58:00 Test Item Value Reference Range Interpretation Comments GLUCOSE RANDOM (BEAKER) (test code 166 mg/dL 70-110 H = 652) HGB/HCT (H&H) - STAT [id number] 13:58:00 Test Item Value Reference Range Interpretation Comments HEMOGLOBIN (BEAKER) (test code = 7.5 g/dL 12.0-15.0 L 410) HEMATOCRIT (BEAKER) (test code = 22.0 % 36.0-45.0 L 411) POTASSIUM-STAT [id number] 13:57:00 Test Item Value Reference Range Interpretation Comments POTASSIUM (BEAKER) (test code = 4.7 meq/L 3.6-5.5 379) BLOOD GAS, [id number] 13:35:00 Test Item Value Reference Range Interpretation [...] (test code = 1819) 80.0 % GLUCOSE-STAT [id number] 13:35:00 Test Item Value Reference Range Interpretation Comments GLUCOSE RANDOM (BEAKER) (test code 130 mg/dL 70-110 H = 652) HGB/HCT (H&H) - STAT [id number] 13:35:00 Test Item Value Reference Range Interpretation Comments HEMOGLOBIN (BEAKER) (test code = 6.7 g/dL 12.0-15.0 L 410) HEMATOCRIT (BEAKER) (test code = 20.0 % 36.0-45.0 L 411) SODIUM NA-STAT [id number] 13:35:00 Test Item Value Reference Range Interpretation Comments SODIUM (BEAKER) (test code = 381) 133 meq/L 135-148 L POTASSIUM-STAT [id number] 13:34:00 Test Item Value Reference Range Interpretation Comments POTASSIUM (BEAKER) (test code = 4.2 meq/L 3.6-5.5 379) BLOOD GAS, [id number] 13:16:00 Test Item Value Reference Range Interpretation [...] code = 1819) 80.0 % SODIUM NA-STAT [id number] 13:16:00 Test Item Value Reference Range Interpretation Comments SODIUM (BEAKER) (test code = 381) 133 meq/L 135-148 L HGB/HCT (H&H) - STAT [id number] 13:16:00 Test Item Value Reference Range Interpretation Comments HEMOGLOBIN (BEAKER) (test code = 6.3 g/dL 12.0-15.0 L 410) HEMATOCRIT (BEAKER) (test code = 19.0 % 36.0-45.0 L 411) CALCIUM, [id number] 13:15:00 Test Item Value Reference Range Interpretation Comments CALCIUM IONIZED (BEAKER) (test 0.98 mmol/L 1.12-1.27 L code = 698) PH, BLOOD (BEAKER) (test code = 7.34 1810) BLOOD GAS, [id number] 13:15:00 Test Item Value Reference Range Interpretation [...] (test code = 1819) 80.0 % GLUCOSE-STAT [id number] 13:14:00 Test Item Value Reference Range Interpretation Comments GLUCOSE RANDOM (BEAKER) (test code = 92 mg/dL 70-110 652) POTASSIUM-STAT [id number] 13:14:00 Test Item Value Reference Range Interpretation Comments POTASSIUM (BEAKER) (test code = 3.9 meq/L 3.6-5.5 379) BLOOD GAS, [id number] 10:54:00 Test Item Value Reference Range Interpretation [...] 1819) 100.0 % HGB/HCT (H&H) - STAT [id number] 10:54:00 Test Item Value Reference Range Interpretation Comments HEMOGLOBIN (BEAKER) (test code = 9.3 g/dL 12.0-15.0 L 410) HEMATOCRIT (BEAKER) (test code = 27.0 % 36.0-45.0 L 411) SODIUM NA-STAT [id number] 10:54:00 Test Item Value Reference Range Interpretation Comments SODIUM (BEAKER) (test code = 381) 132 meq/L 135-148 L GLUCOSE-STAT [id number] 10:52:00 Test Item Value Reference Range Interpretation Comments GLUCOSE RANDOM (BEAKER) (test code = 94 mg/dL 70-110 652) POTASSIUM-STAT [id number] 10:52:00 Test Item Value Reference Range Interpretation Comments POTASSIUM (BEAKER) (test code = 4.0 meq/L 3.6-5.5 379) HEMOGLOBIN [id number] 09:50:00 Test Item Value Reference Range Interpretation Comments HEMOGLOBIN A1C (BEAKER) (test code = 10.6 % 4.3-6.1 H 368) PLATELET AGGREGATION: FUNCTION [id number] 08:27:00 Test Item Value Reference Range Interpretation Comments WEAK ADP 63 % 60-91 RESULT(BEAKER) (test code = 2135) PLATELET FUNCTION 60-100% indicates SCREEN INTERP (BEAKER) normal platelet (test code = 2173) function [id number] Toshia Post MD (BEAKER) (test code = (electronic signature) 6621) PLATELET COUNT AGG 198 K/CU MM 150-450 (BEAKER) (test code = 0461) for patients on clopidogrel in past two weeksPOCT-GLUCOSE [id number] 08:11:00 Test Item Value Reference Range Interpretation Comments POC-GLUCOSE METER 116 mg/dL 70-[address] [facility] 67[address] (BEAKER) (test code = [place] 1538) [address] [id number] 07:10:00 Test Item Value Reference Range Interpretation Comments PHOSPHORUS (BEAKER) (test code = 4.5 mg/dL 2.3-4.7 604) [id number] 07:10:00 Test Item Value Reference Range Interpretation Comments MAGNESIUM (BEAKER) (test code = 2.1 mg/dL 1.6-2.6 627) BASIC METABOLIC [id number] 07:10:00 Test Item Value Reference Range Interpretation [...] = 700) CBC W/PLT COUNT & AUTO [id number] 06:46:00 Test Item Value Reference Range Interpretation [...] PERCENT (BEAKER) (test code = 2801) CALCIUM, [id number] 06:40:00 Test Item Value Reference Range Interpretation Comments CALCIUM IONIZED (BEAKER) (test 1.06 mmol/L 1.12-1.27 L code = 698) PH, BLOOD (BEAKER) (test code = 7.39 1810) POCT-GLUCOSE [id number] 23:22:00 Test Item Value Reference Range Interpretation Comments POC-GLUCOSE METER 165 mg/dL 70-[address] [facility] [address] (BEAKER) (test code = [place] 1538) [address] URINE PROTEIN ELECTROPHORESIS, [id number] 18:02:00 Test Item Value Reference Range Interpretation Comments PROTEIN, URINE 305 mg/dL 0-14 H (BEAKER) (test code = 1569) ALBUMIN URINE ELP 70.9 % (BEAKER) (test code = 1018) GAMMA GLOBULIN URINE 29.1 % (BEAKER) (test code = 1015) UPEP, ID-438 ([facility]) No monoclonal bands (test code = 2604) detected. [id number] Rocio Galindo MD ([facility]) (test code = (electronic signature) 2608) PROTEIN ELECTROPHORESIS, [id number] 17:57:00 Test Item Value Reference Range Interpretation [...] all globulin fractions. No monoclonal bands detected. [id number] Rocio Galindo MD ([facility]) (test code = (electronic signature) 5495) PROTEIN TOTAL SERUM, 5.5 gm/dL 6.0-8.3 L SPEP (BEAKER) (test code = 0420) POCT-GLUCOSE [id number] 17:15:00 Test Item Value Reference Range Interpretation Comments POC-GLUCOSE METER 209 mg/dL 70-[address] [facility] (test code = JULIANO [place]borne [place] 1538) [address] BLOOD GAS, [id number] 15:54:00 Test Item Value Reference Range Interpretation [...] 36.0 % RAD, CHEST, 1 VIEW, NON [id number] 14:07:00Reason for exam:->SOB, hypoxemiaShould this be performed [...] Regan Cespedes Verified Date/Time: 05/19/2017 14:07:07 Reading Location:[facility] [id number] Consult Reading Room POCT-GLUCOSE [id number] 11:26:00 Test Item Value Reference Range Interpretation Comments POC-GLUCOSE METER 262 mg/dL 70-[address] [facility] 67[address] ([facility] (test code = JULIANO Osborne [facility] 1538) [address] POCT-GLUCOSE [id number] 07:37:00 Test Item Value Reference Range Interpretation Comments POC-GLUCOSE METER 170 mg/dL 70-[address] [facility] 67[address] (BEAKER) (test code = [place] 1538) [address] CALCIUM, [id number] 06:06:00 Test Item Value Reference Range Interpretation Comments CALCIUM IONIZED (BEAKER) (test 1.05 mmol/L 1.12-1.27 L code = 698) PH, BLOOD (BEAKER) (test code = 7.41 1810) [id number] 05:38:00 Test Item Value Reference Range Interpretation Comments PHOSPHORUS (BEAKER) (test code = 3.9 mg/dL 2.3-4.7 604) [id number] 05:38:00 Test Item Value Reference Range Interpretation Comments MAGNESIUM (BEAKER) (test code = 2.2 mg/dL 1.6-2.6 627) BASIC METABOLIC [id number] 05:38:00 Test Item Value Reference Range Interpretation [...] PATIEN TS. CBC W/PLT COUNT & AUTO [id number] 05:09:00 Test Item Value Reference Range Interpretation [...] PERCENT (BEAKER) (test code = 2801) POCT-GLUCOSE [id number] 22:08:00 Test Item Value Reference Range Interpretation Comments POC-GLUCOSE METER 263 mg/dL 70-110 H TESTED AT [place] [address] (BEAKER) (test code = JULIANO Osborne [facility] 1538) [address] POCT-GLUCOSE [id number] 17:20:00 Test Item Value Reference Range Interpretation Comments POC-GLUCOSE METER 233 mg/dL 70-110 H TESTED AT [place] [address] (BEAKER) (test code = JULIANO Osborne [facility] 1538) [address] POCT-GLUCOSE [id number] 08:28:00 Test Item Value Reference Range Interpretation Comments POC-GLUCOSE METER 154 mg/dL 70-110 H TESTED AT [place] [address] (BEAKER) (test code = [facility] Dylon [facility] 1538) [address] BASIC METABOLIC [id number] 06:41:00 Test Item Value Reference Range Interpretation [...] S NOT APPLICABLE FOR DIALYSIS PATIEN TS. [id number] 06:35:00 Test Item Value Reference Range Interpretation Comments PHOSPHORUS (BEAKER) (test code = 4.1 mg/dL 2.3-4.7 604) [id number] 06:35:00 Test Item Value Reference Range Interpretation Comments MAGNESIUM (BEAKER) (test code = 2.1 mg/dL 1.6-2.6 627) CALCIUM, [id number] 06:22:00 Test Item Value Reference Range Interpretation Comments CALCIUM IONIZED (BEAKER) (test 1.10 mmol/L 1.12-1.27 L code = 698) PH, BLOOD (BEAKER) (test code = 7.38 1810) CBC W/PLT COUNT & AUTO [id number] 06:04:00 Test Item Value Reference Range Interpretation [...] EOSINOPHILS ABSOLUTE COUNT 0.24 K/ L 0.04-0.36 ([facility]) (test code = 416) BASOPHILS ABSOLUTE COUNT ([facility]) 0.06 K/ L 0.01-0.08 (test code = 417) IMMATURE GRANULOCYTES-RELATIVE 0 % 0-1 PERCENT ([facility]) (test code = 2801) POCT-GLUCOSE [id number] 03:44:00 Test Item Value Reference Range Interpretation Comments POC-GLUCOSE METER 220 mg/dL 70-110 H TESTED AT [place] [address] ([facility]) (test code = [email or web address] [place] 1538) [address] POCT-GLUCOSE [id number] 18:27:00 Test Item Value Reference Range Interpretation Comments POC-GLUCOSE METER 256 mg/dL 70-110 H TESTED AT [place] [address] ([facility]) (test code = [employer] [place] 15[address]) [address] POCT-GLUCOSE [id number] 15:45:00 Test Item Value Reference Range Interpretation Comments POC-GLUCOSE METER 278 mg/dL 70-110 H TESTED AT [place] [address] ([facility]) (test code = [employer] [place] 1538) [address] POCT-GLUCOSE [id number] 13:22:00 Test Item Value Reference Range Interpretation Comments POC-GLUCOSE METER 278 mg/dL 70-110 H TESTED AT [place] [address] ([facility]) (test code = [email or web address] [place] 1538) [address] PLATELET AGGREGATION: FUNCTION [id number] 13:18:00 Test Item Value Reference Range Interpretation Comments WEAK ADP 66 % 60-91 RESULT([facility]) (test code = 2135) PLATELET FUNCTION 60-100% indicates SCREEN INTERP ([facility]) normal platelet (test code = 2173) function [id number] Rigoberto Duenas MD ([facility]) (test code = (electronic signature) 7374) PLATELET COUNT AGG 204 K/CU MM 150-450 ([facility]) (test code = 2656) POCT-GLUCOSE [id number] 08:27:00 Test Item Value Reference Range Interpretation Comments POC-GLUCOSE METER 189 mg/dL 70-110 H TESTED AT [place] [address] ([facility]) (test code = [email or web address] [place] 1538) [address] CALCIUM, [id number] 06:12:00 Test Item Value Reference Range Interpretation Comments CALCIUM IONIZED (BEAKER) (test 1.07 mmol/L 1.12-1.27 L code = 698) PH, BLOOD (BEAKER) (test code = 7.36 1810) [id number] 05:43:00 Test Item Value Reference Range Interpretation Comments PHOSPHORUS (BEAKER) (test code = 3.6 mg/dL 2.3-4.7 604) [id number] 05:43:00 Test Item Value Reference Range Interpretation Comments MAGNESIUM (BEAKER) (test code = 2.1 mg/dL 1.6-2.6 627) BASIC METABOLIC [id number] 05:43:00 Test Item Value Reference Range Interpretation [...] PATIEN TS. CBC W/PLT COUNT & AUTO [id number] 05:05:00 Test Item Value Reference Range Interpretation [...] PERCENT (BEAKER) (test code = 2801) POCT-GLUCOSE [id number] 21:32:00 Test Item Value Reference Range Interpretation Comments POC-GLUCOSE METER 176 mg/dL 70-[address] [facility] [address] (BEAKER) (test code = [place] 1538) [address] POCT-GLUCOSE [id number] 20:27:00 Test Item Value Reference Range Interpretation Comments POC-GLUCOSE METER 161 mg/dL 70-[address] [facility] 67[address] ([facility] (test code = JULIANO Osborne [facility] 1538) [address] POCT-GLUCOSE [id number] 18:23:00 Test Item Value Reference Range Interpretation Comments POC-GLUCOSE METER 185 mg/dL 70-110 H TESTED AT [place] [address] ([facility]) (test code = [facility] 1538) [address] POCT-GLUCOSE [id number] 13:26:00 Test Item Value Reference Range Interpretation Comments POC-GLUCOSE METER 282 mg/dL 70-110 H TESTED AT [place] [address] ([facility]) (test code = [facility] [place] [facility] 1538) [address] URINE [id number] 10:12:00 Test Item Value Reference Range Interpretation Comments CULTURE (BEAKER) (test >100,000 col/mL skin code = 1095) todd POCT-GLUCOSE [id number] 09:01:00 Test Item Value Reference Range Interpretation Comments POC-GLUCOSE METER 268 mg/dL 70-110 H TESTED AT [place] [address] ([facility]) (test code = [facility] 1538) [address] CALCIUM, [id number] 05:39:00 Test Item Value Reference Range Interpretation Comments CALCIUM IONIZED (BEAKER) (test 0.84 mmol/L 1.12-1.27 L code = 698) PH, BLOOD (BEAKER) (test code = 7.35 8180) BASIC METABOLIC [id number] 05:07:00 Test Item Value Reference Range Interpretation [...] S NOT APPLICABLE FOR DIALYSIS PATIEN TS. [id number] 05:06:00 Test Item Value Reference Range Interpretation Comments PHOSPHORUS (BEAKER) (test code = 3.2 mg/dL 2.3-4.7 604) [id number] 05:06:00 Test Item Value Reference Range Interpretation Comments MAGNESIUM (BEAKER) (test code = 2.3 mg/dL 1.6-2.6 627) CBC W/PLT COUNT & AUTO [id number] 04:42:00 Test Item Value Reference Range Interpretation [...] = 2801) RHEUMATOID FACTOR AB, REFLEX TO [id number] 01:52:00 Test Item Value Reference Range Interpretation Comments RHEUMATOID FACTOR (ROBERT) (test Negative code = 573) POCT-GLUCOSE [id number] 21:57:00 Test Item Value Reference Range Interpretation Comments POC-GLUCOSE METER 105 mg/dL 70-[address] [facility] (test code = JULIANO Osborne [place] [address]) [address] POCT-GLUCOSE [id number] 18:11:00 Test Item Value Reference Range Interpretation Comments POC-GLUCOSE METER 312 mg/dL 70-110 H Notified Dylon Austin MD/TESTED (ROBERT) (test code = AT [facility] [address] [place] [address]) [facility] 7[address] PET, CARDIAC PERFUSION MULTIPLE STUDIES, REST AND [id number] 16:28:00 Reason for exam:->pvcs, known cadFINAL REPORT PROCEDURE: Rest/Stress MYOCARDIAL PERFUSION PET with regadenoson\\XA9\\ CPT CODE: 46649 INDICATION: Defined extent and severity of known [...] is 23%. LVEF at stress is 36%. [facility] CT images revealed a right pleural effusion [...] pericardial effusions. 7. No previous [facility] study for comparison. NONINVASIVE RISK STRATIFICATION: The above findings are considered high risk (>3% annual mortality rate) based on the following criteria: - Severe resting left ventricular dysfunction (LVEF 35%)- Stress-induced large perfusion defect (particularly if anterior)(JACC. 2012;59(9):857-81.) Signed: Natan Whaley Verified Date/Time: 05/15/2017 16:28:12 Reading Location: [address] [facility] ReadingRoom RAD, CHEST, 1 VIEW, NON [id number] 15:56:00Reason for exam:->SOBShould this be performed at the bedside?->YesFINAL REPORT Comparison: 05/14/2017 TECHNIQUE: Single view of the chest FINDINGS: There is a small right pleural effusion with nonspecific airspace disease. This is unchanged. Left lung is grossly clear. Cardiac silhouette is enlarged. IMPRESSION: 1. No acute cardiopulmonary disease. Signed: Sixto Monk MDReport Verified Date/Time: 05/15/2017 15:56:39 Reading Location: [facility] Rad iology Reading Room POCT-GLUCOSE [id number] 12:54:00 Test Item Value Reference Range Interpretation Comments POC-GLUCOSE METER 308 mg/dL 70-110 H Notified Dylon Austin MD/NATHAN (ROBERT) (test code = AT [facility] 67[address] [facility] 1538) [facility] 7[address] U/S, RENAL WITH [id number] 11:04:00Reason for exam:->tracy, htnShould this be performed [...] in the resistive indices throughout. Signed: Anahi H[facility]sep[facility] Verified Date/Time: 05/15/2017 11:04:01 Reading Location: [address] Ultrasound Reading Room ANA TITER AND [id number] 10:57:00 Test Item Value Reference Range Interpretation Comments ROGER TITER (BEAKER) (test code = :160 1541) ROGER PATTERN (BEAKER) (test code = Speckled 1781) ANTI-NUCLEAR ANTIBODY (ROGER)2017-05-15 10:56:00 Test Item Value Reference Range Interpretation Comments ANTI-NUCLEAR ANTIBODY (ROGER) (BEAKER) Positive Negative A (test code = 418) CALCIUM, [id number] 06:00:00 Test Item Value Reference Range Interpretation Comments CALCIUM IONIZED (BEAKER) (test 1.07 mmol/L 1.12-1.27 L code = 698) PH, BLOOD (BEAKER) (test code = 7.28 1810) HEPATITIS PANEL, [id number] 05:01:00 Test Item Value Reference Range Interpretation Comments HEPATITIS A IGM ANTIBODY (BEAKER) Nonreactive Nonreactive (test code = 498) HEPATITIS B CORE IGM ANTIBODY Nonreactive Nonreactive (BEAKER) (test code = 645) HEPATITIS C ANTIBODY (BEAKER) Nonreactive Nonreactive (test code = 367) HEPATITIS B SURFACE ANTIGEN (2) Nonreactive Nonreactive (BEAKER) (test code = 2585) BASIC METABOLIC [id number] 04:48:00 Test Item Value Reference Range Interpretation [...] NOT APPLICABLE FOR DIALYSIS PATIEN TS. URIC [id number] 04:41:00 Test Item Value Reference Range Interpretation Comments URIC ACID (BEAKER) (test code = 10.3 mg/dL 2.6-7.2 H 773) [id number] 04:41:00 Test Item Value Reference Range Interpretation Comments MAGNESIUM (BEAKER) (test code = 2.0 mg/dL 1.6-2.6 627) [id number] 04:41:00 Test Item Value Reference Range Interpretation Comments PHOSPHORUS (BEAKER) (test code = 4.2 mg/dL 2.3-4.7 604) COMPLEMENT COMPONENT [id number] 04:38:00 Test Item Value Reference Range Interpretation Comments C4 COMPLEMENT (BEAKER) (test code = 28 mg/dL 15-57 394) COMPLEMENT COMPONENT [id number] 04:38:00 Test Item Value Reference Range Interpretation Comments C3 COMPLEMENT (BEAKER) (test code = 103 mg/dL 82-193 393) CBC W/PLT COUNT & AUTO [id number] 04:22:00 Test Item Value Reference Range Interpretation [...] EOSINOPHILS ABSOLUTE COUNT 0.21 K/ L 0.04-0.36 ([facility]) (test code = 416) BASOPHILS ABSOLUTE COUNT ([facility]) 0.06 K/ L 0.01-0.08 (test code = 417) IMMATURE GRANULOCYTES-RELATIVE 0 % 0-1 PERCENT ([facility]) (test code = 2801) POCT-GLUCOSE [id number] 21:46:00 Test Item Value Reference Range Interpretation Comments POC-GLUCOSE METER 173 mg/dL 70-110 H TESTED AT [place] [address] ([facility]) (test code = JULIANO Osborne [facility] 1538) [address] POCT-GLUCOSE [id number] 21:46:00 Test Item Value Reference Range Interpretation Comments POC-GLUCOSE METER 154 mg/dL 70-110 H TESTED AT [place] [address] ([facility]) (test code = [facility] Dylon [facility] 1538) [address] POCT-GLUCOSE [id number] 18:17:00 Test Item Value Reference Range Interpretation Comments POC-GLUCOSE METER 175 mg/dL 70-110 H TESTED AT [place] [address] ([facility]) (test code = [facility] 1538) [address] RAD, CHEST, 1 VIEW, NON [id number] 14:56:00Reason for exam:->SOBShould this be performed at the bedside?->YesFINAL REPORT INDICATION: SOB COMPARISON: May 13, 2017 TECHNIQUE: Chest radiograph, single view, portable technique. FINDINGS / IMPRESSION: Enlarged heart shadow, small rightpleural effusion, and pulmonary venous congestion, again demonstrated. No pneumothorax or consolidation. Osseous structures unremarkable. Signed: Thania Dwyer MDReport Verified Date/Time: 05/14/2017 14:56:58 Reading Location: [facility] Mammo Reading Room POCT-GLUCOSE [id number] 12:18:00 Test Item Value Reference Range Interpretation Comments POC-GLUCOSE METER 313 mg/dL 70-110 H TESTED AT [place] [address] ([facility]) (test code = JULIANO Osborne [facility] 1538) [address] HIV-1 ANTIGEN WITH HIV-1/2 [id number] 12:07:00 Test Item Value Reference Range Interpretation Comments HIV-1 ANTIGEN WITH HIV 1\\T\\2 Nonreactive Nonreactive ANTIBODY (2) (BEAKER) (test code = 2586) CALCIUM, [id number] 06:37:00 Test Item Value Reference Range Interpretation Comments CALCIUM IONIZED (BEAKER) (test 1.08 mmol/L 1.12-1.27 L code = 698) PH, BLOOD (BEAKER) (test code = 7.25 1810) BASIC METABOLIC [id number] 06:26:00 Test Item Value Reference Range Interpretation [...] pg/mL 0-100 H (test code = 700) [id number] 06:25:00 Test Item Value Reference Range Interpretation Comments PHOSPHORUS (BEAKER) (test code = 5.7 mg/dL 2.3-4.7 H 604) [id number] 06:25:00 Test Item Value Reference Range Interpretation Comments MAGNESIUM (BEAKER) (test code = 1.5 mg/dL 1.6-2.6 L 627) CBC W/PLT COUNT & AUTO [id number] 06:07:00 Test Item Value Reference Range Interpretation [...] PERCENT (BEAKER) (test code = 2801) POCT-GLUCOSE [id number] 22:38:00 Test Item Value Reference Range Interpretation Comments POC-GLUCOSE METER 262 mg/dL 70-[address] [facility] [address] (BEAKER) (test code = JULIANO [place] 1538) [address] PROTEIN, RANDOM [id number] 22:18:00 Test Item Value Reference Range Interpretation Comments PROTEIN, URINE (BEAKER) (test code 641 mg/dL 0-14 H = 1569) CREATININE, RANDOM [id number] 22:07:00 Test Item Value Reference Range Interpretation Comments CREATININE URINE (BEAKER) (test 124.9 mg/dL code = 375) Reference Range: No NormalsURINALYSIS W/ [id number] 22:03:00 Test Item Value Reference Range Interpretation [...] 1585) SOURCE(BEAKER) (test code = Urine, Voided 7384) [id number] 19:49:00 Test Item Value Reference Range Interpretation Comments SODIUM (BEAKER) (test 136 meq/L 136-145 code = 381) POTASSIUM (BEAKER) 5.1 meq/L 3.5-5.1 Specimen slightly (test code = 379) hemolyzed CHLORIDE (BEAKER) 104 meq/L 98-107 (test code = 382) CO2 (BEAKER) (test 25 meq/L 22-29 code = 355) Call if K > 5POCT-GLUCOSE [id number] 11:37:00 Test Item Value Reference Range Interpretation Comments POC-GLUCOSE METER 293 mg/dL 70-110 H TESTED AT [place] [address] ([facility]) (test code = JULIANO Osborne [facility] 1538) [address] RAD, CHEST, 1 VIEW, NON [id number] 10:22:00Reason for exam:->SOBShould this be performed at the bedside?->YesFINAL REPORT Chest one view Discussion: There is cardiomegaly and interstitial congestion. A small right-sided effusion is noted. No pneumothorax. IMPRESSIONS: Suspected CHF. Signed: Jeannette Nava Verified Date/Time: 05/13/2017 10:22:34 Reading Location: [facility] Radiology Reading Room POCT-GLUCOSE METER 2017-05-13 08:34:00 Test Item Value Reference Range Interpretation Comments POC-GLUCOSE METER 178 mg/dL 70-[address] [facility] ([facility] (test code = JULIANO Osborne [facility] 1538) [address] POCT-GLUCOSE [id number] 06:53:00 Test Item Value Reference Range Interpretation Comments POC-GLUCOSE METER 167 mg/dL 70-[address] [facility] [address] (BEAKER) (test code = JULIANO Osborne [facility] 1538) [address] [id number] 04:48:00 Test Item Value Reference Range Interpretation Comments BLOOD UREA NITROGEN (BEAKER) (test 36 mg/dL 7-21 H code = 354) [id number] 04:48:00 Test Item Value Reference Range Interpretation Comments SODIUM (BEAKER) (test code = 381) 139 meq/L 136-145 POTASSIUM (BEAKER) (test code = 5.2 meq/L 3.5-5.1 H 379) CHLORIDE (BEAKER) (test code = 382) 109 meq/L 98-107 H CO2 (BEAKER) (test code = 355) 23 meq/L 22-29 [id number] 04:48:00 Test Item Value Reference Range Interpretation [...] WBC 0-0 (BEAKER) (test code = 413) [id number] 23:29:00 Test Item Value Reference Range Interpretation Comments ACTIVATED CLOTTING TIME 136 sec TEST ED AT [place] [address] (BEAKER) (test code = JULIANO Osborne [place] 441) [address] [id number] 20:13:00 Test Item Value Reference Range Interpretation Comments ACTIVATED CLOTTING TIME 175 sec TEST ED AT [place] [address] ([facility] (test code = JULIANO Osborne [place] 441) [address] [id number] 18:36:00 Test Item Value Reference Range Interpretation Comments ACTIVATED CLOTTING TIME 202 sec TEST ED AT [place] [address] (BEAKER) (test code = JULIANO Osborne [facility] 441) [address] [id number] 18:03:00 Test Item Value Reference Range Interpretation Comments ACTIVATED CLOTTING TIME 208 sec TEST ED AT [place] [address] ([facility]) (test code = JULIANO Osborne [facility] 441) [address] BASIC METABOLIC [id number] 11:57:00 Test Item Value Reference Range Interpretation [...] NOT APPLICABLE FOR DIALYSIS PATIEN TS. PROTHROMBIN [id number] 11:15:00 Test Item Value Reference Range Interpretation [...] if on CoumadinCBC W/PLT COUNT & AUTO [id number] 11:01:00 Test Item Value Reference Range Interpretation [...] PERCENT (BEAKER) (test code = 2801) POCT-GLUCOSE [id number] 12:35:00 Test Item Value Reference Range Interpretation Comments POC-GLUCOSE METER 249 mg/dL 70-[address] [facility] ([facility]) ([facility] 1538) [address] POCT-GLUCOSE [id number] 09:10:00 Test Item Value Reference Range Interpretation Comments POC-GLUCOSE METER 155 mg/dL 70-110 H TESTED AT [place] [address] ([facility]) (test code = [facility] Dylon [facility] 1538) [address] BASIC METABOLIC [id number] 05:39:00 Test Item Value Reference Range Interpretation [...] S NOT APPLICABLE FOR DIALYSIS PATIEN TS. [id number] 05:27:00 Test Item Value Reference Range Interpretation Comments PHOSPHORUS ([facility]) (test code = 5.0 mg/dL 2.3-4.7 H 604) [id number] 05:27:00 Test Item Value Reference Range Interpretation Comments MAGNESIUM ([facility]) (test code = 1.6 mg/dL 1.6-2.6 627) POCT-GLUCOSE [id number] 05:25:00 Test Item Value Reference Range Interpretation Comments POC-GLUCOSE METER 144 mg/dL 70-110 H TESTED AT [place] [address] ([facility]) (test code = [facility] [place] [facility] 1538) [address] PROTHROMBIN [id number] 04:58:00 Test Item Value Reference Range Interpretation Comments PROTIME ([facility]) (test code = 14.2 seconds 11.7-14.7 759) INR ([facility]) (test code = 370) 1.1 <=5.9 RECOMMENDED COUMADIN/WARFARIN INR THERAPY RANGESSTANDARD DOSE: 2.0 - 3.0 Includes: PROPHYLAXIS forvenous thrombosis, systemic embolization; TREATMENT for venous thrombosis and/or pulmonary embolus.HIGH RISK: Target INR is 2.5-3.5 for patients with mechanical heart valves.POCT-GLUCOSE [id number] 23:55:00 Test Item Value Reference Range Interpretation Comments POC-GLUCOSE METER 86 mg/dL 70-110 TESTED AT [place] [address] ([facility]) (test code = [facility] [address] 1538) B-TYPE NATRIURETIC FACTOR (BNP)2017-04-22 18:13:00 Test Item Value Reference Range Interpretation Comments B-TYPE NATRIURETIC PEPTIDE 1203 pg/mL 0-100 H ([facility]) (test code = 700) POCT-GLUCOSE [id number] 17:36:00 Test Item Value Reference Range Interpretation Comments POC-GLUCOSE METER 259 mg/dL 70-110 H TESTED AT [place] [address] ([facility]) (test code = [facility] 1538) [address] HEMOGLOBIN [id number] 14:24:00 Test Item Value Reference Range Interpretation Comments HEMOGLOBIN A1C ([facility]) (test code = 10.5 % 4.3-6.1 H 368) POCT-GLUCOSE [id number] 12:34:00 Test Item Value Reference Range Interpretation Comments POC-GLUCOSE METER 207 mg/dL 70-[address] [facility] [address] (BEAKER) (test code = JULIANO [place] 1538) [address] [id number] 07:53:00 Test Item Value Reference Range Interpretation Comments PHOSPHORUS (BEAKER) (test code = 3.9 mg/dL 2.3-4.7 604) [id number] 07:53:00 Test Item Value Reference Range Interpretation Comments MAGNESIUM (BEAKER) (test code = 1.6 mg/dL 1.6-2.6 627) BASIC METABOLIC [id number] 07:53:00 Test Item Value Reference Range Interpretation [...] NOT APPLICABLE FOR DIALYSIS PATIEN TS. TROPONIN [id number] 07:29:00 Test Item Value Reference Range Interpretation [...] acidosis, acute neurological disease, and persistent tachyarrhythmia.PROTHROMBIN [id number] 07:01:00 Test Item Value Reference Range Interpretation Comments PROTIME (ROBERT) (test code = 13.8 seconds 11.7-14.7 759) INR ([facility]) (test code = 370) 1.1 <=5.9 RECOMMENDED COUMADIN/WARFARIN INR THERAPY RANGESSTANDARD DOSE: 2.0 - 3.0 Includes: PROPHYLAXIS forvenous thrombosis, systemic embolization; TREATMENT for venous thrombosis and/or pulmonary embolus.HIGH RISK: Target INR is 2.5-3.5 for patients with mechanical heart valves.POCT-GLUCOSE [id number] 06:28:00 Test Item Value Reference Range Interpretation Comments POC-GLUCOSE METER 198 mg/dL 70-110 H TESTED AT [place] [address] ([facility]) (test code = JULIANO REYEZ 1538) [address] CREATINE KINASE (CK), TOTAL AND [id number] 00:49:00 Test Item Value Reference Range Interpretation Comments CREATINE KINASE TOTAL ([facility]) 69 U/L 29-200 (test code = 380) CREATINE KINASE-MB ([facility]) (test 4.3 ng/mL 0.0-6.6 code = 750) CREATINE KINASE-MB INDEX ([facility]) 6.2 % (test code = 395) CK-MB Reference Range:<6.7 Normal6.7-10.0 Borderline>10.0 AbnormalTROPONIN [id number] 00:49:00 Test Item Value Reference Range Interpretation [...] acidosis, acute neurological disease, and persistent tachyarrhythmia.POCT-GLUCOSE [id number] 20:44:00 Test Item Value Reference Range Interpretation Comments POC-GLUCOSE METER 269 mg/dL 70-110 H TESTED AT [place] [address] (BEAKER) (test code = JULIANO Osborne [facility] 1538) [address]
--- NOTE | 2020-06-27 14:27 | RAD REPORT ---
EXAM DESCRIPTION: Butch Single View06/27/2020 2:21 pm CLINICAL HISTORY: Shortness of breath COMPARISON: June 13, 2020 FINDINGS: Small to moderate right pleural effusion with basilar atelectasis is unchanged. The remainder of the lungs appear clear of acute infiltrate. The heart remains enlarged. Central venous line has its tip in the superior vena cava
[2020-06-27 14:46] LABS: Basophils % 2.4 % (0-1.3); Hematocrit 33.5 % (36.0-45.0); MPV 6.7 fL (7.6-11.3); RBC Red Blood Cell Count 3.99 M/uL (3.86-4.86)
[2020-06-27 14:56] LABS: Protime INR 1.25
[2020-06-27] MEDS ORDERED: HYDROCODONE/APAP 5/325 MG TAB ONE (15:36)
[2020-06-27 15:40] LABS: Albumin 2.6 g/dL (3.4-5.0); Bilirubin Direct 0.2 mg/dL (0-0.2); Bilirubin Total 0.4 mg/dL (0.2-1.0); Magnesium 1.9 mg/dL (1.8-2.4); Potassium 5.3 mmol/L (3.5-5.1); Protein, Total 7.7 g/dL (6.4-8.2); Troponin (Emerg Dept Use Only) 0.04 ng/mL (0.0-0.045)
--- NOTE | 2020-06-27 16:00 | RAD REPORT ---
EXAM DESCRIPTION: CT - Abdomen Pelvis Wo Contrast - 06/27/2020 3:50 pm CLINICAL HISTORY: Abdominal pain COMPARISON: 2019 TECHNIQUE: Computed axial tomography of the abdomen and pelvis was obtained. IV and oral contrast we re not requested. All CT scans are performed using dose optimization technique as appropriate and may include automated exposure control or mA/KV adjustment according to patient size. FINDINGS: The evaluation of solid organs, vessels and bowel is limited secondary to the lack of con trast administration. Liver has a mildly nodular contour. Caudate and left lobes are mildly prominent. Spleen, pancreas, adrenals and kidneys appear grossly normal. Coarse vascular calcifications are present. Small to moderate right pleural effusion. Moderate amount of ascites. Diffuse edema the subcutaneous tissues. Postsurgical changes involve stom ach IMPRESSION: Mildly nodular hepatic contour with mild prominence of left caudate lobes may indicate c irrhosis Small to moderate right pleural effusion Moderate ascites
--- NOTE | 2020-06-27 16:24 | EDPHYS ---
Physician Documentation [facility] Name: Christy Priest Age: 65 yrs Sex: Female : 1955 Arrival Date: 06/27/2020 Time: 13:32 Bed 18 Private MD: ED Physician Annmarie Petersen HPI: 06/27 14:20 This 65 yrs old Female presents to ER via EMS with complaints of Diarrhea. jmm 14:20 The patient presents to the emergency department with diarrhea. Onset: The jmm symptoms/episode began/occurred gradually, 5 day(s) ago. Possible causes: unknown. The symptoms are aggravated by nothing. The symptoms are alleviated by nothing. Associated signs and symptoms:. This is a 65 year old female with a history of COPD, DM, ESRD that presents to the ED with complaints of diarrhea beginning this past . patient states last dialysis 3 days ago. Complains of some sob. . Historical: - Allergies: 13:36 Augmentin; aa5 13:36 basil; aa5 13:36 Clindamycin; aa5 13:36 Morphine; aa5 13:36 Nitroglycerin; aa5 13:36 Tramadol HCl; aa5 13:36 Trazodone; aa5 13:36 Vancomycin; aa5 13:36 Vicodin; aa5 - PMHx: 13:36 ADD/ADHD; CHF; COPD; Diabetes - IDDM; ESRD; High Cholesterol; Hypertension; triple aa5 bypass; uterine cancer; Dialysis; - Immunization history:: Adult Immunizations unknown. - Social history:: Smoking status: unknown. ROS: 14:20 Constitutional: Negative for fever, chills, and weight loss, Cardiovascular: Negative jmm for chest pain, palpitations, and edema. 14:20 Respiratory: Positive for shortness of breath. 14:20 Abdomen/GI: Positive for diarrhea. 14:20 All other systems are negative. Exam: 14:20 Constitutional: This is a well developed, well nourished patient who is awake, alert, jmm and in no acute distress. Head/Face: atraumatic. Eyes: EOMI, no conjunctival erythema appreciated ENT: Moist Mucus Membranes Neck: Trachea midline, Supple Chest/axilla: Normal chest wall appearance and motion. Cardiovascular: Regular rate and rhythm. No edema appreciated Respiratory: Normal respirations, no respiratory distress appreciated Abdomen/GI: Non distended, soft Back: Normal ROM Skin: General appearance color normal 14:20 Musculoskeletal/extremity: ROM: intact in all extremities. 14:20 Skin: Appearance: Color: normal in color. 14:20 Neuro: Orientation: is normal, Mentation: is normal, Memory: is normal. 14:20 Psych: Behavior/mood is pleasant, cooperative. Vital Signs: 13:32 BP 153 / 77; Pulse 74; Resp 18 S; Temp 97.8(O); Pulse Ox 100% on R/A; aa5 13:51 BP 150 / 73; Pulse 47; Resp 18; Temp 98.5; Pulse Ox 96% on R/A; dh4 15:00 BP 155 / 78; Pulse 73; Resp 16; Pulse Ox 98% on R/A; zb 16:10 BP 157 / 90; Pulse 73; Resp 16; Pulse Ox 98% on R/A; zb 17:00 BP 160 / 85; Pulse 72; Resp 18; Pulse Ox 95% on R/A; zb MDM: 13:53 Patient medically screened. [facility] 16:22 Data reviewed: vital signs, nurses notes. Counseling: I had a detailed discussion with kristen the patient and/or guardian regarding: the historical points, exam findings, and any diagnostic results supporting the discharge/admit diagnosis, lab results, radiology results, the need for outpatient follow up, to return to the emergency department if symptoms worsen or persist or if there are any questions or concerns that arise at home. ED course: Patient is advised to follow up with nephrology for dialysis. No episodes of diarrhea in the ED. I do not suspect an acute intrabdominal process Patient is otherwise given strict return precautions. Patient understood and agrees with the plan of care. . 06/27 13:54 Order name: Basic Metabolic Panel; Complete Time: 15:41 [facility] 06/27 13:54 Order name: CBC with Diff; Complete Time: 15:16 [facility] 06/27 13:54 Order name: LFT's; Complete Time: 15:41 [facility] 06/27 13:54 Order name: Magnesium; Complete Time: 15:41 [facility] 06/27 13:54 Order name: NT PRO-BNP; Complete Time: 15:41 [facility] 06/27 13:54 Order name: PT-INR; Complete Time: 15:16 [facility] 06/27 13:54 Order name: Troponin (emerg Dept Use Only); Complete Time: 15:41 [facility] 06/27 13:54 Order name: XRAY Chest (1 view); Complete Time: 14:33 [facility] 06/27 13:54 Order name: EKG; Complete Time: 13:55 [facility] 06/27 13:54 Order name: Cardiac monitoring; Complete Time: 14:40 [facility] 06/27 13:54 Order name: EKG - Nurse/Tech; Complete Time: 14:41 [facility] 06/27 13:54 Order name: IV Saline Lock; Complete Time: 14:41 [facility] 06/27 15:16 Order name: CT Abd/Pelvis - Without Contrast; Complete Time: 16:02 [facility] 06/27 13:54 Order name: Labs collected and sent; Complete Time: 14:41 [facility] 06/27 13:54 Order name: O2 Per Protocol; Complete Time: 14:41 [facility] 06/27 13:54 Order name: O2 Sat Monitoring; Complete Time: 14:41 [facility] Administered Medications: 15:30 Drug: HYDROcodone-acetaminophen 5 mg-325 mg 1 tabs {Note: RASS 0.} Route: PO; zb 16:20 Follow up: Response: No adverse reaction; Pain is decreased; RASS: Alert and Calm (0) zb Disposition: 18:50 Co-signature as Attending Physician, Annmarie Petersen MD. ma2 Disposition: 06/27/20 16:23 Discharged to Home. Impression: Diarrhea, unspecified. - Condition is Stable. - Discharge Instructions: Food Choices to Help Relieve Diarrhea, Adult. - Prescriptions for Zofran ODT 4 mg Oral tablet,disintegrating - place 1 tablet by TRANSLINGUAL route every 4-6 hours; 20 tablet. Bentyl 20 mg Oral Tablet - take 1 tablet by ORAL route every 6 hours As needed; 40 tablet. - Medication Reconciliation Form, Thank You Letter, Antibiotic Education, Prescription Opioid Use form. - Follow up: Private Physician; When: 2 - 3 days; Reason: Recheck today's complaints, Continuance of care, Re-evaluation by your physician. Signatures: Dispatcher [employer] EDPedro Taylor PA PA jmm Calderon, Audri, RN RN aa5 Annmarie Petersen MD MD ma2 Yee Salgado RN RN zb Corrections: (The following items were deleted from the chart) 17:24 16:23 06/27/2020 16:23 Discharged to Home. Impression: Diarrhea, unspecified. Condition zb is Stable. Forms are Medication Reconciliation Form, Thank You Letter, Antibiotic Education, Prescription Opioid Use. Follow up: Private Physician; When: 2 - 3 days; Reason: Recheck today's complaints, Continuance of care, Re-evaluation by your physician. kristen
--- NOTE | 2020-06-27 16:24 | ER ---
Nurse's Notes [facility] Name: Crhisty Priest Age: 65 yrs Sex: Female : 1955 Arrival Date: 06/27/2020 Time: 13:32 Bed 18 Private MD: Diagnosis: Diarrhea, unspecified Presentation: 06/27 13:32 Chief complaint: Patient states: Pt reports diarrhea since . Pt denies aa5 nausea/vomiting. Pt reports last dialysis was Friday, pt reports she could not go to dialysis due to having diarrhea. Coronavirus screen: The client reports previous COVID testing was negative. Ebola Screen: Patient negative for fever greater than or equal to 101.5 degrees Fahrenheit, and additional compatible Ebola Virus Disease symptoms. Initial Sepsis Screen: Does the patient meet any 2 criteria? No. Patient's initial sepsis screen is negative. Does the patient have a suspected source of infection? No. Patient's initial sepsis screen is negative. Risk Assessment: Do you want to hurt yourself or someone else? Patient reports no desire to harm self or others. Onset of symptoms was May 2020. 13:32 Acuity: DENNY 3 aa5 13:32 Method Of Arrival: EMS: [facility] aa5 Historical: - Allergies: 13:36 Augmentin; aa5 13:36 basil; aa5 13:36 Clindamycin; aa5 13:36 Morphine; aa5 13:36 Nitroglycerin; aa5 13:36 Tramadol HCl; aa5 13:36 Trazodone; aa5 13:36 Vancomycin; aa5 13:36 Vicodin; aa5 - PMHx: 13:36 ADD/ADHD; CHF; COPD; Diabetes - IDDM; ESRD; High Cholesterol; Hypertension; triple aa5 bypass; uterine cancer; Dialysis; - Immunization history:: Adult Immunizations unknown. - Social history:: Smoking status: unknown. Screenin:15 Abuse screen: Denies threats or abuse. Denies injuries from another. Nutritional zb screening: No deficits noted. Tuberculosis screening: No symptoms or risk factors identified. Fall Risk None identified. Assessment: 15:13 General: Appears uncomfortable, Behavior is cooperative. Pain: Complains of pain in zb right hip and diffuse abdominal pain. Neuro: Level of Consciousness is awake, alert, obeys commands, Oriented to person, place, time, situation. Cardiovascular: Patient's skin is warm and dry. Pulses are all present. Edema pitting to waist, left midcalf, left foot, left toes, right midcalf, right ankle, right foot and right toes. Respiratory: Airway is patent Respiratory effort is even, unlabored, Respiratory pattern is regular, symmetrical. GI: Abdomen is distended, noted to have ascites. Derm: Skin is intact, Skin is moist, Skin is normal, Skin temperature is Wound noted left leg. Musculoskeletal: Range of motion: intact in all extremities. 16:00 Reassessment: Patient appears in no apparent distress at this time. Patient and/or zb family updated on plan of care and expected duration. Pain level reassessed. Patient is alert, oriented x 3, equal unlabored respirations, skin warm/dry/pink. 17:00 Reassessment: Patient appears in no apparent distress at this time. Patient and/or zb family updated on plan of care and expected duration. Pain level reassessed. Patient is alert, oriented x 3, equal unlabored respirations, skin warm/dry/pink. re-wrapped left foot wound. Vital Signs: 13:32 BP 153 / 77; Pulse 74; Resp 18 S; Temp 97.8(O); Pulse Ox 100% on R/A; aa5 13:51 BP 150 / 73; Pulse 47; Resp 18; Temp 98.5; Pulse Ox 96% on R/A; dh4 15:00 BP 155 / 78; Pulse 73; Resp 16; Pulse Ox 98% on R/A; zb 16:10 BP 157 / 90; Pulse 73; Resp 16; Pulse Ox 98% on R/A; zb 17:00 BP 160 / 85; Pulse 72; Resp 18; Pulse Ox 95% on R/A; zb ED Course: 13:32 Patient arrived in ED. aa5 13:32 Arm band placed on. aa5 13:34 Pedro Wall PA is PHCP. jmm 13:34 Annmarie Petersen MD is Attending Physician. jmm 13:34 Triage completed. aa5 14:21 XRAY Chest (1 view) In Process Unspecified. 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 Pulse ox on. NIBP on. Warm blanket given. sr5 14:42 Initial lab(s) drawn, by me, sent to lab. EKG done, by ED staff, reviewed by Pedro LEWIS. Inserted saline lock: 20 gauge in right forearm, using aseptic technique. Missed attempt(s): 20 gauge in right antecubital area. 14:56 Yee Salgado, RN is Primary Nurse. zb 15:16 Patient has correct armband on for positive identification. Bed in low position. Call zb light in reach. 15:50 CT Abd/Pelvis - Without Contrast In Process Unspecified. EDMS 17:21 No provider procedures requiring assistance completed. IV discontinued, intact, zb bleeding controlled, No redness/swelling at site. Pressure dressing applied. Administered Medications: 15:30 Drug: HYDROcodone-acetaminophen 5 mg-325 mg 1 tabs {Note: RASS 0.} Route: PO; zb 16:20 Follow up: Response: No adverse reaction; Pain is decreased; RASS: Alert and Calm (0) zb Outcome: 16:23 Discharge ordered by MD. kristen 17:21 Discharged to home via wheelchair. zb 17:21 Condition: stable 17:21 Discharge instructions given to patient, Instructed on discharge instructions, follow up and referral plans. Demonstrated understanding of instructions, follow-up care, medications. 17:24 Patient left the ED. zb Signatures: Dispatcher [employer] EDMS Pedro Wall PA PA jmm Calderon, Audri, RN RN jose de jesus5 Devin Tadeo RN RN sr5 [facility] Yee Salgado, RN RN zb Corrections: (The following items were deleted from the chart) 17:25 16:30 Response: No adverse reaction; Pain is decreased zb zb 17:25 17:25 Response: No adverse reaction; Pain is decreased; RASS: Alert and Calm (0) zb zb
[2020-06-27 17:35] VITALS: TEMP 98.5
[2020-06-27 17:39] VITALS: BP 160/85; O2SAT 95
--- NOTE | 2020-06-28 17:03 | EKG ---
Test Date: 2020-06-27 Test Time: 14:17:40 [employer]: KAITLIN MEASUREMENT RESULTS: Intervals: Rate: 71 NV: 174 QRSD: 98 QT: 430 QTc: 467 [place]: P: 85 NV: 174 QRS: 130 T: 145 INTERPRETIVE STATEMENTS: Normal sinus rhythm Incomplete right bundle branch block Left posterior fascicular block Septal infarct, age undetermined ST & T wave abnormality, consider lateral ischemia Abnormal ECG Compared to ECG 06/13/2020 13:25:04 Left posterior fascicular block now present Right-axis deviation no longer present Myocardial infarct finding still present ST (T wave) deviation still present Possible ischemia still present Electronically Signed On 06-28-20 17:00:39 CDT by Taj Raymond
== END 2020-06-27 17:24 | disposition home or self-care (01) ==
LOC: ER 13:29
DX: R19.7 Diarrhea, unspecified (principal); E11.22 Type 2 diabetes mellitus with diabetic chronic kidney disease; I13.2 Hypertensive heart and chronic kidney disease with heart failure and with stage 5 chronic kidney disease, or end stage renal disease; I50.9 Heart failure, unspecified; N18.6 End stage renal disease; Z99.2 Dependence on renal dialysis; Z85.42 Personal history of malignant neoplasm of other parts of uterus; Z88.1 Allergy status to other antibiotic agents; Z88.3 Allergy status to other anti-infective agents; Z88.5 Allergy status to narcotic agent; Z88.6 Allergy status to analgesic agent; Z88.8 Allergy status to other drugs, medicaments and biological substances; Z95.1 Presence of aortocoronary bypass graft
CPT/HCPCS: 36415; 71045; 74176; 80048; 80076; 83735; 83880; 84484; 85025; 85610; 93005; 99285

== ENCOUNTER 2020-07-08 16:56 | Emergency (ER) | payer OTHER ==
--- OUTSIDE RECORDS SUMMARY | 2020-07-08 17:07 | XMS REPORT | Continuity of Care Document ---
:1955 Author Organization [facility] t Address [address] [place] [address] Care Team Providers Name Role Phone Landy Rendon Primary Care Physician Babatunde PIERRE Attending Clinician Mk PIERRE Attending Clinician Lisa Mohamud MD Attending Clinician LISA MOHAMUD Attending Clinician Unavailable Kj PIERRE, Tracy Attending Clinician Urmila PIERRE, Cesia Attending Clinician Neeta PIERRE, Thy Attending Clinician Belkis PIERRE, Taj Attending Clinician Monica VANEGAS Attending Clinician Unavailable PRABHJOT RDEW Attending Clinician Unavailable OLAYINKA Attending Clinician Unavailable [...] Date Expiration Date Sour ce Cassie ALMANZA [id number] [address] [facility] MEDICAIDMEDICAID 00:00:00 - Marium [id number] Ce nter 2-Present Problems Condition Condition Condition [...] rosis of [address] [facility] nikolski nikolski 00:00: Medical artery of artery of 00 [...] l mellitus mellitus 00 Center 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 y disorder, disorder, with with long-term long-term current current use of use of insulin insulin Smoker Smoker Disease Active [facility] Medical 00 Center Frequent Frequent Disease Active [facility] PVCs PVCs 2[facility]12 [facility] - [facility] Medical 00 Center Essential Essential Problem Active [facility] (primary[facility] (primary[facility] s - hypertensi hypertensi [facility] Depression Depression Problem [...] d COPD d COPD Clinics type type FDC FDC Problem Active [facility] current current [facility] [...] St disease disease [facility] Allergies, Adverse Reactions, Alerts Allergy Allergy Status Severity Reaction(s) Onset Inactive Treating Comm ents Source Name Type Date Date Clinician Trazodon Drug Active Nausea And [facility] Allergy Vomiting 2-12 [facility] - 00:00: Medical 00 Caspar Morphine Propensi Active Anaphylaxis C HI St [...] in HCl Reaction [facility] l [facility] Nitrogly Adverse Active vomiting [facility] cerin Reaction [facility] Morphine Adverse Active headache, [facility] Sulfate Reaction breathing Luke s - Memoria l [facility] Clindamy Adverse Active vomiting [facility] riley HCl Reaction [facility] Family History Family Member Diagnosis Comments Start Date Stop Date Source Natural father COPD [facility] Natural father Cancer [facility] Natural father Hypertension [facility] Natural mother No Known Problem [facility] Natural sister Asthma [facility] Natural sister COPD [facility] Social History Social Habit Start Date Stop Date Quantity Comments Source Sex Assigned At [facility] Cigarettes smoked 2019-12-31 2019-12-31 [facility] bernardino - current (pack per 00:00:00 00:00:00 [facility] day) - Reported Cigarette 2019-12-31 2019-12-31 [facility] - pack-years 00:00:00 00:00:00 [facility] Tobacco use and 2019-12-31 2019-12-31 Never used [facility] - exposure 00:00:00 00:00:00 [facility] Alcohol intake 2019-12-31 2019-12-31 Current [facility] - 00:00:00 00:00:00 non-drinker of Medical Ce nter alcohol (finding) History of tobacco 2017-05-12 Current sm[facility] use 00:[facility]:00 [facility] Smoking Status Start Date Stop Date Source Former smoker 2019-12-31 00:00:00 2019-12-31 00:00:00 [facility] Medications Ordered Filled Start Stop Current Ordering Indication Dosage Frequency Signature Comments Components Source Medication Medication Date Date Medication? Clinician (SIG) Name Name mupirocin 2019-03 Yes QD Apply [facility] (BACTROBAN) 0-03 topically Lay es - 2 % 10:49: daily. Medical ointment [address] [place] [address] collagenase 2019-03 Yes QD Apply [facility] (SANTYL) 0-03 topically [facility] - 250 units/g 10:49: daily. Medi marilin ointment [address] [place] [address] bumetanide 2019-03 Yes 2mg [id number] Take [address] (BUMEX) 2 0-03 [id number] by mouth 3 [facility] - MG tablet [...] - MOUTH [facility] EVERYDAY l AT BEDTIME [facility] Isosorbide Isosorbide Yes [...] [facility] - [facility]TH [facility] EVERY DAY l [facility] Acetaminoph Acetaminoph Yes Franki (Schedule [facility] en-Codeine en-Codeine Jas III Drug) Shannon - #3 #3 TAKE 1 Memoria TABLET BY l MOUTH Outpati EVERY 6 ent HOURS Clinics NEEDED FOR PAIN Carvedilol Carvedilol Yes Franki TAKE [address] [facility] Jas TABLET BY [facility] - [facility]TH Memoria TWICE A l DAY [facility] Advair Advair Yes Franki INHALE 1 [facility] Diskus Diskus Jas DOSE BY [facility] - M[facility]TH [facility]oria TWICE l DAILY. [facility]SE [facility] MOUTH Clinics AFTER USE Atorvastati Atorvastati Yes Franki TAKE [address] [facility] [address] n Calcium n Calcium Jas TABLET BY [facility] - [facility]TH [facility] EVERY DAY l [facility] Allopurinol Allopurinol Yes Franki TAKE [address] [facility] Jas TABLET BY [facility] - M[facility]TH Memoria TWICE A l DAY [facility] Gabapentin Gabapentin Yes Franki TAKE [address] [facility] Jas CAPSULE BY Lukes - MOUTH Memoria THREE l TIMES A Outpati DAY ent Clinics Clopidogrel Clopidogrel Yes Franki TAKE [address] [facility] Bisulfate Bisulfate Jas TABLET BY [facility] - [facility]TH Mem[facility] EVERY DAY l [facility] Vitamin D Vitamin [...] Jas UNITS [facility] - [facility]OW [facility] SKIN IN l THE Out[facility]i MORNING ent Clinics HydrALAZINE HydrALAZINE Yes Franki TAKE [address] [facility] [address] HCl HCl Jas TABLET BY [facility] - MOUTH Memoria THREE l TIMES A Outpati DAY ent Clinics Vital Signs Vital Name Observation Time Observation Value Comments Source Heart rate 2020-01-01 08:41:00 60 /min [facility] Respiratory rate 2020-01-01 08:41:00 18 /min [facility] Oxygen saturation in 2020-01-01 08:41:00 100 /min [facility] Arterial blood by Medical Ce nter Pulse oximetry Systolic blood 2020-01-01 08:32:00 162 mm[Hg] [facility] Diastolic blood 2020-01-01 08:32:00 73 mm[Hg] [facility] Body temperature 2020-01-01 07:41:00 36.56 Deanne [facility] Body weight 2019-12-30 04:28:00 78.2 kg [facility] BMI 2019-12-30 04:28:00 27.00 kg/m2 [facility] Body height 2019-12-25 21:05:00 170.2 cm [facility] Procedures Procedure Date / Time Performed Performing Clinician [facility] e REPORT OF PROCEDURE - 2020-01-05 08:40:02 Provider, Default [facility] ENDOSCOPY SCAN Scanning [facility] RHYTHM STRIP - SCAN 2020-01-05 08:31:43 Provider, Default [facility] Scanning [facility] RHYTHM STRIP - SCAN 2020-01-05 08:31:42 Provider, Default [facility] RHYTHM STRIP - SCAN 2020-01-05 08:31:40 Provider, Default [facility] CARDIAC CATH REPORT - 2020-01-05 08:31:15 Provider, Default [facility] CARDIAC CATH REPORT - 2020-01-05 08:31:13 Rocco Sepulveda [facility] POCT-GLUCOSE METER 2020-01-01 06:33:00 Cade [facility] CBC W/PLT COUNT & AUTO 2020-01-01 05:37:00 Lily Echavarria [facility] COMPREHENSIVE METABOLIC 2020-01-01 05:37:00 [facility] POCT-GLUCOSE METER 2019-12-31 20:50:00 Cade, [facility] POCT-GLUCOSE METER 2019-12-31 18:00:00 Cade [facility] POCT-GLUCOSE METER 2019-12-31 11:42:00 Cade [facility] POCT-GLUCOSE METER 2019-12-31 06:29:00 Cade [facility] CBC W/PLT COUNT & AUTO 2019-12-31 06:05:00 JerichoLily [facility] COMPREHENSIVE METABOLIC 2019-12-31 06:05:00 JerichoLily [facility] MAGNESIUM 2019-12-31 06:05:00 [facility] POCT-GLUCOSE METER 2019-12-30 20:13:00 [facility] POCT-GLUCOSE METER 2019-12-30 16:26:00 Cade [facility] SURGICALLY OBTAINED 2019-12-30 13:59:[address] [facility] - CULTURE + GRAM STAIN Medical Matthew ter ANAEROBIC CULTURE 2019-12-30 13:59:46 Tala Santacruz [facility] SURGICALLY OBTAINED 2019-12-30 13:54:[address] [facility] I [facility] - CULTURE + GRAM STAIN Medical [facility] ter ANAEROBIC CULTURE 2019-12-30 13:54:56 [facility] TISSUE [facility]AM 2019-12-30 13:38:00 Tala Santacruz [facility] I&D,BONE FOOT 2019-12-30 13:11:00 Tala Santacruz [facility] POCT-GLUCOSE METER 2019-12-30 11:39:00 [facility] POCT-GLUCOSE METER 2019-12-30 05:39:00 [facility] SARS-COV2/RT-PCR ([facility] & 2019-12-30 05:11:00 [facility] CBC W/PLT COUNT & AUTO 2019-12-30 05:09:00 RaleighLily [facility] METABOLIC 2019-12-30 05:09:00 RaleighLily [facility] POCT-GLUCOSE METER 2019-12-29 21:09:00 [facility]ade [facility] POCT-GLUCOSE METER 2019-12-29 11:10:00 Pat Mohamud [facility] HEMODIALYSIS INPATIENT 2019-12-29 08:12:17 Brandie Khan [facility] POCT-GLUCOSE METER 2019-12-29 06:10:00 [facility]ade [facility] CBC W/PLT COUNT & AUTO 2019-12-29 05:50:00 RaleighLily [facility] METABOLIC 2019-12-29 05:50:00 RaleighLily [facility] POCT-GLUCOSE METER 2019-12-28 20:37:00 [facility]ade [facility] POCT-GLUCOSE METER 2019-12-28 17:38:00 Cade [facility] POCT-GLUCOSE METER 2019-12-28 13:12:00 Cade [facility] POCT-GLUCOSE METER 2019-12-28 05:43:00 Cade [facility] CBC W/PLT COUNT & AUTO 2019-12-28 04:41:00 Lily Echavarria KATHRYN S t [facility] COMPREHENSIVE METABOLIC 2019-12-28 04:41:00 Raleigh Lily [facility] ABD AO & LOWER EXT 2019-12-28 02:30:00 Sakina Tamayo [facility] - ANGIOS/ POSS [facility] POCT-GLUCOSE METER 2019-12-27 20:32:00 Pat Mohamud [facility] MR LOWER EXTREMITY 2019-12-27 16:30:00 Jericho Lily [facility] - WITHOUT IV CONTRAST [facility] POCT-GLUCOSE METER 2019-12-27 14:06:00 [facility] WOUND CULTURE + GRAM 2019-12-27 12:02:00 Annia Delgado [facility] I [facility] - STAIN [facility] POCT-GLUCOSE METER 2019-12-27 06:44:00 Pat Mohamud [facility] POCT-GLUCOSE METER 2019-12-27 05:49:00 Pat Mohamud [facility] CBC W/PLT COUNT & AUTO 2019-12-27 05:05:00 RaleighChloeu [facility] METABOLIC 2019-12-27 05:05:00 RaleighLily [facility] HEMODIALYSIS INPATIENT 2019-12-27 00:31:18 Brandie Khan [facility] POCT-GLUCOSE METER 2019-12-26 20:51:00 Pat Mohamud [facility] TRANSFUSION SERVICE 2019-12-26 18:02:44 Rocco Sepulveda [facility] REPORT - SCAN Scanning [facility] POCT-GLUCOSE METER 2019-12-26 16:42:00 [facility]/CTA AAA AND RUNOFF 2019-12-26 15:27:00 Sakina Tamayo [facility] POCT-GLUCOSE METER 2019-12-26 11:59:00 Pat Mohamud [facility] POCT-GLUCOSE METER 2019-12-26 06:09:00 [facility] CBC W/PLT COUNT & AUTO 2019-12-26 04:36:00 RaleighLily [facility] COMPREHENSIVE [facility] 2019-12-26 04:36:00 RaleighLily [facility] PREPARE LEUKO-REDUCED RBC 2019-12-25 23:54:00 Brandie Khan [facility] POCT-GLUCOSE METER 2019-12-25 20:51:00 Pat Mohamud [facility] TRANSFUSION SERVICE 2019-12-25 18:04:44 Rocco Sepulveda [facility] - SCAN Scanning [facility] POCT-GLUCOSE METER 2019-12-25 17:01:00 Pat Mohamud [facility] POCT-GLUCOSE METER 2019-12-25 11:25:00 Pat Mohamud [facility] CBC W/PLT COUNT & AUTO 2019-12-25 05:59:00 Lily Echavarria [facility] 2019-12-25 05:59:00 [facility] POCT-GLUCOSE METER 2019-12-25 05:58:00 [facility]ade [facility] TRANSFUSE LEUKO-REDUCED 2019-12-24 19:06:17 Brandie Khan [facility] RED BLOOD CELLS [facility] POCT-GLUCOSE METER 2019-12-24 16:15:00 Pat [facility]ud [facility] ABORH, MANUAL 2019-12-24 08:25:00 Jovita Griffith [facility] POCT-GLUCOSE METER 2019-12-24 06:11:00 Cade [facility] TYPE AND SCREEN, 2019-12-24 06:08:00 Brandie Khan [facility] es - AUTOMATED [facility] CBC W/PLT COUNT & AUTO 2019-12-24 05:51:00 RaleighLily [facility] 2019-12-24 05:51:00 Lily Echavarria [facility] POCT-GLUCOSE METER 2019-12-23 21:23:00 Pat Mohamud [facility] POCT-GLUCOSE METER 2019-12-23 16:42:00 Pat Mohamud [facility] MR LOWER EXTREMITY JOINT 2019-12-23 15:34:00 Tala Santacruz hy [facility] - ONLY WITHOUT IV CONTRAST [facility] LEFT MR BRAIN WITHOUT IV 2019-12-23 15:34:00 Lily Echavarria [facility] - CONTRAST [facility] POCT-GLUCOSE METER 2019-12-23 11:16:00 Pat Mohamud [facility] ARTERIAL DOPPLER LEGS 2019-12-23 09:38:00 Tala Santacruz Thy [facility] BILATERAL [facility] AMMONIA 2019-12-23 04:05:00 Mariela Carrasco [facility] CBC W/PLT COUNT & AUTO 2019-12-23 04:00:[address] RaleighLily [facility] COMPREHENSIVE METABOLIC 2019-12-23 04:00:00 RaleighLily [facility] SARS-COV2/RT-PCR ([facility] & 2019-12-23 03:59:00 Pat Mohamud [facility] POCT-GLUCOSE METER 2019-12-22 20:34:00 Pat Mohamud [facility] POCT-GLUCOSE METER 2019-12-22 16:43:00 Pat Mohamud [facility] POCT-GLUCOSE METER 2019-12-22 11:31:00 Pat Mohamud [facility] POCT-GLUCOSE METER 2019-12-22 06:30:00 [facility] CBC W/PLT COUNT & AUTO 2019-12-22 05:14:00 RaleighLily [facility] t [facility] COMPREHENSIVE METABOLIC 2019-12-22 05:14:00 RaleighLily [facility] POCT-GLUCOSE METER 2019-12-21 20:26:00 Pat Mohamud [facility] POCT-GLUCOSE METER 2019-12-21 17:22:00 Cade [facility] POCT-GLUCOSE METER 2019-12-21 12:35:00 Cade [facility] POCT-GLUCOSE METER 2019-12-21 07:20:00 [facility]ade [facility] POCT-GLUCOSE METER 2019-12-21 05:52:00 Cade [facility] C-REACTIVE PROTEIN 2019-12-21 04:39:00 Annia Delgado [facility] CBC W/PLT COUNT & AUTO 2019-12-21 04:39:00 [facility] COMPREHENSIVE METABOLIC 2019-12-21 04:39:00 Raleigh [facility] US ABDOMEN COMPLETE 2019-12-20 21:17:00 Sakina Chen [facility] POCT-GLUCOSE METER 2019-12-20 20:23:00 Cade [facility] POCT-GLUCOSE METER 2019-12-20 17:31:[address] [facility] [address] BRAIN WITHOUT IV 2019-12-20 16:04:00 [facility] AMMONIA 2019-12-20 14:41:00 Raleigh [facility] BLOOD GAS, ARTERIAL 2019-12-20 14:28:00 Raleigh [facility] XR FOOT 2 VIEWS LEFT 2019-12-20 11:55:00 Annia Delgado I [facility] POCT-GLUCOSE METER 2019-12-20 11:28:00 Cade [facility] POCT-GLUCOSE METER 2019-12-20 06:20:00 Cade [facility] OCCULT BLOOD, STOOL 2019-12-20 06:19:00 [facility] 2019-12-20 05:06:00 April Sakina Carrillo [facility] FIBRINOGEN 2019-12-20 05:06:00 [facility] D-DIMER 2019-12-20 05:06:00 [facility] IRON, TIBC, % SAT. 2019-12-20 05:06:00 [facility] Sakinara Carrillo [facility] (WITHOUT FERRITIN) [facility] r VITAMIN B12 AND FOLATE 2019-12-20 05:06:00 [facility] Sakina Carrillo [facility] RETICULOCYTE COUNT 2019-12-20 05:06:00 [facility] HAPTOGLOBIN 2019-12-20 05:06:00 [facility] TSH/FREE T4 IF INDICATED 2019-12-20 05:06:[address] [facility] FERRITIN 2019-12-20 05:06:00 [facility] Sakina Carrillo [facility] ANTI-NUCLEAR ANTIBODY 2019-12-20 05:06:00 AprilSakinabal C [facility] (ROGER) [facility] KAPPA / LAMBDA LIGHT 2019-12-20 05:06:00 Sakina Chen [facility] PROTEIN ELECTROPHORESIS, 2019-12-20 05:06:00 Sakina Chenba l [facility] PERIPHERAL BLOOD SMEAR - 2019-12-20 05:06:00 ArpilSakinaba l [facility] PATHOLOGIST REVIEW [facility] r CBC W/PLT COUNT & AUTO 2019-12-20 05:06:00 Marcial Chapa [facility] COMPREHENSIVE METABOLIC 2019-12-20 05:06:00 Marcial Chapa [facility] T4, FREE 2019-12-20 05:06:00 April Sakina Carrillo [facility] ROGER TITER AND PATTERN 2019-12-20 05:06:00 Sakina Chenbal C [facility] POCT-GLUCOSE METER 2019-12-19 20:35:00 Cade [facility] POCT-GLUCOSE METER 2019-12-19 16:06:00 Cade Pat [facility] HEMODIALYSIS INPATIENT 2019-12-19 16:02:09 Sharri Fernando [facility] CBC W/PLT COUNT & AUTO 2019-12-19 05:35:00 Marcial Chapa [facility] BASIC METABOLIC PANEL (7) 2019-12-19 05:35:00 Marcial Chapa [facility] LACTATE DEHYDROGENASE 2019-12-19 05:35:00 Sakina Chen [facility] ([facility]) [facility] POCT-GLUCOSE METER 2019-12-19 05:24:00 Cade Pat [facility] POCT-GLUCOSE METER 2019-12-18 21:35:00 Cade Pat [facility] POCT-GLUCOSE METER 2019-12-18 16:05:00 Cade [facility] POCT-GLUCOSE METER 2019-12-18 07:45:00 Cade [facility] POCT-GLUCOSE METER 2019-12-18 06:14:00 Cade [facility] POCT-GLUCOSE METER 2019-12-17 21:44:00 Evens Mohamudruel [facility] POCT-GLUCOSE METER 2019-12-17 17:52:00 Cade [facility] POCT-GLUCOSE METER 2019-12-17 12:22:00 Cade [facility] HEMODIALYSIS INPATIENT 2019-12-17 10:33:08 Brandie Khan [facility] POCT-GLUCOSE METER 2019-12-17 06:18:00 Cade [facility] CBC W/PLT COUNT & AUTO 2019-12-17 04:14:00 Marcial Chapa [facility] COMPREHENSIVE METABOLIC 2019-12-17 04:13:00 Marcial Chapa [facility] PANEL [facility] POCT-GLUCOSE METER 2019-12-16 20:55:00 Pat Mohamud [facility] POCT-GLUCOSE METER 2019-12-16 18:24:00 [facility] HEPATITIS B SURFACE 2019-12-16 16:02:00 [facility] ANTIBODY [facility] HEPATITIS B SURFACE 2019-12-16 16:02:00 [facility] ANTIGEN [facility] HEPATITIS C ANTIBODY 2019-12-16 16:02:00 [facility] CORE 2019-12-16 16:02:00 [facility] es - ANTIBODY, TOTAL [facility] POCT-GLUCOSE METER 2019-12-16 14:47:00 [facility] IR TUNNELED DIALYSIS 2019-12-16 14:26:00 Sharri Fernando [facility] CATHETER [facility] HEMODIALYSIS INPATIENT 2019-12-16 12:37:39 Bill [facility] POCT-GLUCOSE METER 2019-12-16 11:01:00 Pat Mohamud [facility] XR CHEST 1 VIEW 2019-12-16 05:55:00 Marcial Chapa [facility] PORTABLE/BEDSIDE [facility] POCT-GLUCOSE METER 2019-12-16 05:51:00 [facility] CBC W/PLT COUNT & AUTO 2019-12-16 04:08:00 Marcial Chapa [facility] BASIC METABOLIC PANEL (7) 2019-12-16 04:08:00 Marcial Chapa [facility] PROTHROMBIN TIME/INR 2019-12-16 04:08:00 Marcial Chapa [facility] SARS-COV2/RT-PCR ([facility] & 2019-12-16 01:45:00 Pat Mohamud [facility] Plan of Care Planned Activity Planned Date Details Comments Source Future Scheduled 2020-12-[address] [facility] - Test 00:00:00 examination Medical Center (regime/therapy) [code = 594169236] Future Scheduled 2020-12-[address] [facility] - Test 00:00:00 [facility] (procedure) [code = 929324631] Future Scheduled 2020-03-[address] [facility] - Test 00:00:00 (12+) [code = Medical Center DEPRESSION SCREENING (12+)] Future Scheduled 2020 PNEUMOCOCCAL 65+ YRS [facility] - Test 00:00:00 (1 of 1 - Medical Center [id number]) [code = PNEUMOCOCCAL 65+ YRS (1 of 1 - [id number] PCV13)] Future Scheduled 2019-11-30 INFLUENZA VACCINE (#1) [facility] 00:00:00 [code = INFLUENZA Medical nter VACCINE (#1)] Future Scheduled 2017-08-[address] Janna kes - Test 00:00:[address] [facility] (procedure) [code = 03263210] Future Scheduled [address] [facility] - Test 00:00:00 (procedure) [code = Medical Center 45671308] Future Scheduled [address] [facility] - Test 00:00:00 malignant neoplasm of [facility] cervix (procedure) [code = 922094685] Future Scheduled 1965 DIABETIC EYE EXAM [facility] - Test 00:00:00 [code = DIABETIC EYE Medical Center EXAM] Future Scheduled 1965 Urine screening for [facility] - Test 00:00:00 protein (procedure) Medical Center [code = 828132899] Future Scheduled [address] [facility] - Test 00:00:00 malignant neoplasm of [facility] breast (procedure) [code = 826349765] Encounters Start End Encounter Admission Attending Care Care Encounter Source Date/Time Date/Time Type Type Clinicians Facility Department ID 2020-03-28 2020-03-29 Emergency Chato Fine [facility] [id number] 15:50:00 20:31:00 Maureen Terrazas [id number] [place] [id number] [place] [id number] 2018-11-17 2018-11-17 [facility] [id number] [address] 11:30:00 11:30:00 [facility] 2018-10-06 2018-10-06 [facility] [id number] 16:14:00 16:14:00 [facility] 2018-09-28 2018-09-28 [facility] [id number] 10:30:00 10:30:00 [facility] Results Test Description Test Time Test Comments Results Result Comments Source ANAEROBIC CULTURE 2020-01-04 10:26:00 Test Item Value Reference Range Interpretation Comme nts CULTURE (BEAKER) (test code = 1095) No anaerobes isolated Tissue [id number] 10:21:00 Test Item Value Reference Range Interpretation Comments Case Report (test code Surgical Pathology = 104) Report Case: [id number] Authorizing Provider: Tala Santacruz DPM Collected: 12/30/2019 01:38 PM Ordering Location: [address] Med/Surg Received: 12/31/2019 06:52 AM Pathologist: Jovita Griffith MD Specimens: A) - Soft Tissue, Other, left 5th proximal phalanx B) - Metatarsal, Left, left 5th metatarsal DIAGNOSIS (test code = d3tzxGUaVZQet3yxFPPluB 3220) FuZzEwMzNcZnRuYmpcdWMx KUpuxyWsUWpqq3XiD9TxQj AwMFxhbnNpXGRlZmxhbmcx RWXdNIW6ltKuJUNnQZwlAR UhOUljMv8roQDhnPeyNzGj HXPea4msupNLweyhqAp1e7 sgTLNhIeM3kKDtJAprO0pt wgGzhHGkRBSrZHd3aW30HU DomI1plOQyDVgwhfMxUtV7 LGshVHPlEgO1RSMjeWLmMD LlE1vfRWLpWExeXRJcDLsl mBZsMOY0yJjac3Q7oNGxpU UpuNxzUbAxIjKhECRLq2Vt XBa8hJrnS8DaGQDaNmY3aL QgUGFyYWdyYXBoIEZvbnQ7 tG35HBjpmcY1hQFyk5Mcg2 1wg413oR4wiDPyQEQ1CHFu OYXprEEsGKXwQNK4QRChhH YeP1o2QqKszUHnP0P8XvBe zCVyP9E4DfZmmCUhA0T5Nc EtcFFySPEfsMLlSb1ipOMq ePQvfu0tbh79PZV9n1YgzG ouZSF1LFI4ChFyFj0wqRQz WECrWK6aSaMceRTpEEZhbs 60uUhoUKidmwCneE3lKoYb VXLgmWFxPEXxQR1dtOKdLW YvjE8flxseHNToIxKrrnzy YHNjrRgabtGcJd4xjYspPM E4HBpqM8rfdF4wPgP2APvf O9mqlF4qALl0AFziwOU0FZ WfjI2zVC8rukwel4uyOhXo BA8deomze8xzWjZkIW5cdf e6s2fsIqCdRF5whrmcl1st NzIwXGhlYWRlcnkwXGZvb3 UbtjkgHMLyh3MtG5EnoXrs K58jpZyuN57uCTRhrTmmpC 2riKxtvF7fJePaLpIiPDzs bFxwbGFpblxmMVxmczIwXG ziabxvERNeZNzsD3cqXwTu MMXjnGzxOVtnt0WwURXsHP KeQsAgVK0wTx2GKKnvUNMP KZNNLXGEJUZGGq3FWI3BDA LJSSHBQZ8SUSEOFP1SM3n3 EVWqzcXoSPUgKSREZG1zO0 zUTLLYJsHMAlnYKO9VHHBM UlRJTEFHRSBXSVRIIFNVUl XSTO6KME6XTUASJEKCNGSH RCBDSFJPTklDIElORkxBTU 1BVElPTlxwYXJccGFyIEIu IEJPTkUsIExFRlQgRklGVE ggTUVUQVRBUlNBTCwgQklP UFNZOlxwYXIgICAgLSBBQ1 FXCIWJK4ITR82LHRtNGIbN IFxwYXIgICAgLSBTRVBBUk SRGNDXOiRILWTNPYHdU8Ki LcxGGk0YJ11KGDXQITZJZZ CMP2DGTOXNAUPQZNXOK0JC Z1OdEH6BL7RHP5jCWCPPIV BHUkFOVUxBVElPTiBUSVNT TYHcWg4YUNSTYI9HNDPqbk 61UHM0SdSpx7U9KRM2ASXz JLYsh7ajSOCmmBHuTyWsEc NcZnRuYmpcdWMxXGRlZmYw d5vmw073dHGjw0rcHQFjFy Y7cKFkGRLsnVYmM027ACOc AEwrn4rti3KlAFWtvRIsr1 P0YMUCnnvqpYh9yOghA23a c8M0AcqoA6ixVNOdTVQoH5 MgFQ3hYQByOun5NTI4IAB3 DQJjOWRzI0ZmQK2sLVWmzW RzOLm8q1usdQlcHXQoVLG0 y9hoUKslwvWpEZ9pmu2ffF n4v6uvlyZqUXWsKJBeuRBA MGEgO6LgxYpdYh9geIl8oI iwTfamRZC6Cjb4JQ2lnd79 sma6iQorOWLupamlPtM7IT hbOTPgkandGJe3HNsfIMLn eAE5FLBfiAMuL1NuNJYkJK 6hlrf9EFM4NQhySHAvGjL5 NDBcaGVhZGVyeTcyMFxmb2 69ZXL9YeUiAP8sW5Czl7M9 gE4tpEHnKPHezCLoFmYlEL Oouj4exAOsASwpf8KnYYN2 kiF5gGDiyDHtQEBxAoC7RN hjKK6lrg33ECTuGYK1pw2t bGNccGdicmRyaGVhZFxwZ2 LsJHIqb482BBAgG7JkRMIc j4K9vrLbLvGhYJFmmLJ4bp E0QOXlQD4rfwjzu1ofPVnv UHzmWYPeusW9apN9FWTxvS ZqI2GtpM8yRSBrEC0rwfgp z7tcBNS9MRytKURdHXS4Du EePDVsb6Zxwli5ViFmp5Ei zERyHPtgK00pf286HBGfkq NfB5mhpBYyvdnfdWWnjhpj MLzernV6YANfJGtohtslAZ RxGVbxS9fuKaOqADYwpWgj OChlx7EeCGLcUVRfXwAjmS KoQDRpWog4YRGwfHQrQUMt XeBtX5ybvpgqOnKIBGNyv1 scS8vuqGSBfWKlG1WgFMyx sjDvQQpfOOikOTL4UFI6Kz 29WzZ3CZXdil34 CPT Code(s) (test code p3fraPNqPZPqjIVvNkNuTM = 3357) ZtHQWst1tsGFNtcUFaHpJn MzNcZnRuYmpcdWMxXGRlZm Ezn0gur922vYZji4ocVJDd ItL5sPMeCUXkeHAgJ889t9 koh0cyssCizSR1CMXrSTI4 MVhkgzNplqU9HMaisBGgWb E7YNmbfsFeHEvcsaGqqqQr Wot7PBOgF824SWN9mFzzm6 uyTHJ6ODKvMVHnLkFqOv9t oTMaR644YZHvYRZQLHMkbF v3UUDzyoMuglZirQNLq285 B059g6mtIWPxddQmeTtNvf mkw7ddR317TAMvaXXyclSi RzKgPZDdxMFfcGZ7NBBlPM 7eekwaCgRpXX0omaleQlZm YS3dolz7DbInQN6hcyutWl AwBBfcYTJadimxKHMtj2Kg inryQJ3iD4Bvb8J2kZ3jsA JcPPAheOGrWjEfWMFtou2w tJFrXHvaf9VuTEW6guC1yF WjmOYgKQLxJK35Wfdmz1Nk GionFBG7ULPtnfQcp8Mow8 hzRuTfprZpN4ygB5GxFWMv SKDwTQOrIlMsgnGrf8Opy1 YjhPAklWh3i6wvEBJiPWMb gFoun9mgJFV5QRCkX8Y1sV Aob4weWAneEQBxvJD8xfut JFhzFTYwceK5viwsWVyyTV FurRP9xzosNWhvXORyChW4 zvjyXEixUMMnSFD2DPpfk3 87OFE6NNfzYbehSCcwNMEe bmNvbnRccGduZGVjXHBsYW luXHBsYWluXGYwXGZzMjRc sBhjvTtcwF1hBoQfNxOwBA ybTQ7wVRXpS3towUBzGHHf IUCfV9jbChZjuJ8qiElvBY mhhcTvBB4PF9Q8OAUohjL6 UDVfOuJ1KdwzQEYySZkfUY EgeDJccGFyfQ== CLINICAL HISTORY (test q1zwzYVjVBZsjNDgYvLrUI code = 3356) GeTKEuf3xeXXTwrAWmNbGa MzNcZnRuYmpcdWMxXGRlZm Dkp3yji460wVXgq6jpCCTq EsY9lGUzQCIrcUTmT720r0 lxd3ydsrCujDJ8JXOzHYZ8 DWunuvXiunF2KOovbITvDj T2HOhtdbJpBMndlxNanvUg Geb0UFPmK446OES1hPiob4 nxXNW2DIHqKRKjSfIgZd6m bRWaW129ZNOgZRECPECjyP p2KQOdayVpazCjuINPr399 C486x7iyODJpyxCjdOgRjt iub3avA238JGTlcNTxehGi XhTpTRLotSPpjUG4HZIlDY 8prxvfShNpSF5eqfjrThNw AO5djuw3AaHmBK4pkmrdWo CqDNxoMTKtygzqZYTnb5Gq tvjvSA3lJ6Evw0B9cW7jcF DrXXEutGQeJrBlPZCyvl0b zXJmNZojg5CoLTZ7ddY6nH ZqoMTrQKZkKM79Swgmf8Eo PapzGYS9DGBcnlGme0Krr8 llLdRblpXrC0vrC0LaYQUr FQTjYBMtOuOfcwVpo2Edr2 NukUHruGa9d5wvQQNnCOYh lFzrl3jmGXI9IDObB1B9sS Odd1xqBDafBOAhyCU9jgfn CUavEVOsmhN3iibkOXseTP AsxBB2wrmaRLprOVZaOuT7 lvqjBBhiUNIqNKX8DAwyx1 00BEX5TOyuKlghDEbrVIMr bmNvbnRccGduZGVjXHBsYW luXHBsYWluXGYwXGZzMjRc kBitmOkakY9iEfKnSyMcKL oaQI5jPNKeI6eudIDgXECz NRQqQ6iuSmOqtB6shYvdTZ sqbvSoBV9uxVDjiPjgvYh1 vWDzx8FofBWazTM5kZuqjW A9ZFBgoxEpfIdadLffXNOk a6FsRcbyPPWrnaKhCSSnXM RccGFyfQ== SPECIMEN SOURCE (test d1nmaSSiRBWwzALzFtOxIO code = 3377) FqZUKbc6ebMZTauXEvSjDb MzNcZnRuYmpcdWMxXGRlZm Gkg9zca700lEHpa7gbDKNm HvO1gLEsFLQnrKFsD480g5 det2aghfIzcIN5BVPyFWF5 VGknqbKdbpU5UIhyeBPpJk R3UArhnkJfOHkldiGzbtDt Ynt7MYWkI159KBB0zSyhl2 npFQJ8TEOmQQCxBhQgUd7e wERvM447RNBsITNZVJZqfW l2XLPyswNbwkUzxOYSg572 X904a6lwSIQhtwEbvDqOoo qhy9cuC001TUKhxWTucwAg QsOpAOWbfTQvvTY8NNUeDA 1fivfiKlJkLT9yzpbbMkFs JL9moij6EbAgKM2vzituMc NuFOxzJCSfnjohGNLwg5Ad drfqTC6iQ7Mdo3A1oG6nqA OlPUBltOXoUbAiEJYuqh4s bCMmARzya8KzUWW7tzJ8nB PsdHVmKEXaSR57Okpva1Tp NbglZUK7EKUzibGui7Ufu9 rpSsPlzjHtN0zqW8HvKVSr HWPaEJHlNlPoyrJdv0Ihw9 TjzDOsaFr9g6txURShNIXh qSblc2yrVQC0OCCnT7T7uT Xgk6hyFKoaWJTtwHU0tcoh TNecVJSvulI7yjvdEYhgMZ GvvBL8storQOnjGOTgTwK5 kqbaPJxyLQGkFGJ4RWzsx3 26CLH5PRscOrgkNJpvCVWz bmNvbnRccGduZGVjXHBsYW luXHBsYWluXGYwXGZzMjRc mIkebWemfA8kPmAsSxGeQJ doXZ3kAERcV4xylNXiQXOo XZJdG1snStLibR5utEgfBT xmczIwIEEuIExlZnQgNXRo LAPft5afqRLxNJXwVNplsl hsSMXuUCkbNqAqKYHqMY6n nCA4GPGjDEejKZYuhj2= GROSS DESCRIPTION (test f0nhzOFtGUCxoQOgZyPaUR code = 3367) AlEYCrj1tnBPQxeBAvEgDv MzNcZnRuYmpcdWMxXGRlZm Cps5xbv833lYXvm0trHZCq GyU4tBXcDNTfqVUtI754IQ YrRIntx6cqu4YuCMCpaTPx u1T2EZOSrutaiUl7bVbmP4 1dc7V2IonnO1otNEVaMTVr A6FrQU6fLORxZjc4GJD1IR F6TDXgDUAmM8IcHN5gXVEb oIVnWXd6d9wsfZllCMQnTO R7c4guKEjcftTrYK6mgx1e fOs4c4butpGlOEJcVTRunV ISNQEzB2NlqKhpDz3ljZw7 iPbiSdbrIEH4Bta7DD2vql 09dar7aMtyPMEuffyjFwY0 QKyeOKYomdxaIEh0ZMxsCS JnbDcyMFxtYXJncjcyMFxt YXJndDcyMFxtYXJnYjcyMF zwWOQlXBN5LBlne115RHY5 LOimh9eeu7cyjLOaRch7DR MrSeWaKzugPLtjw1Obq1hu QCOayk7zPZH5nSXvcBwoq3 H0sITiCLOblUQdvcPcUKIe PkG3BJfyGR3nky64TXKaJK M4st9cdVAswFtudgUflGUd QSzuN5SzGDUrd522FKIbL1 HzRBQam0X9ctApYhYhSMVj fYE1eyW3ACRdFSx1qLFlac J5jpZymIFrM7eecK05NtYc eSZdF3MldU61PlIqsGPfL1 UteN69EwGgfJQgJ8NtuU90 VmCcyDUdGRXxoZByPg2gjC RscJHcj9JhjFUzBMffE00b v947ZPDhviZyN4hwzYKqhf jzmBVtnfbpLTgxexB4ZMCh XHBsYWluXGYwXGZzMjBcbG FuZzEwMzNcaGljaFxmMFxk VgDkTDYyCCstK6quHvEoAf NqRHWUzOXlmC2odzGCAEwo TGNsJ3EsyfJzGOytMUJngH N9kQWyZEhdMiTnWLRek0v6 dCI8yDTkeVU9nJTqeTcqCB 6ikYUbAZ0mPV7rBKehAVlp xdLdt8XaSS32pBAnrzPrfx QgZGVzaWduYXRlZCBhcyAi h34auIA8zIXwvEKvKJ19nN GaThwfS51ki0iddURgw3Lc v4danRFasYZrtU20BLHgcz RyKaTzP15vzlWlPJ8wNBZ0 cmluZyAwLjcgeCAwLjMgeC RgZwNiY02hBJPmGYCkrMPa yX1nyhCirdSzaNEzqNL1BT UwZQ93yJYytZhlgP66iaTQ RXYzdmKjwA18lbTjNRJtxK Zcb6q2gSuxxx0xfIOoSUOs ceTQjPTlpM3jcxPTKXgcSZ GpE1TecdYzNApqKKMxeIP8 yTFfZVfuMaScZBDuq0x0cZ U4eLEiyIX0bCGzgZypHQ0k lRWaML1bSN1qZLdbPBavfr Swa1QlCJ96kROyzmIrxgPq ZGVzaWduYXRlZCBhcyAibW D4CUSemaEvsICjLWA2Dtag X76sk6aolCDhb8VoSh07ad LrWLEtCdWal05wsLcyb5Ua OOCcGJByt57yWBYaVCmyNZ 08unHfVQFddGJvjwotVh9b SRneGG80CJvqAM92LQRgHZ glUXTgB6LxH6I7CZ0dyRjc IHNwZWNpbWVuIGlzIGVudG tyDQo5QApuzYXknonmKZik czIwXGxhbmcxMDMzXGhpY2 bdWxNqSAKiwGuzCLbsx0Rl HWJhTWMuRyPkXrDlTP6fMG vgcB3sIXBqKMlai77jcLAe i59jNYTfOTpvUGGtUKGoTv BcbGFuZzEwMzNcaGljaFxm BJbbKgTiJLSxKEfjJ9xpPb BcZnMyMCAgTUcvZXdccGFy fQ== MICROSCOPIC DESCRIPTION a5jirOOlAENcnOYuInRiRX (test code = 3371) IjFOYtj6jhYKHgiVEaBfHn MzNcZnRuYmpcdWMxXGRlZm Ooq5pqx146fQOxw2rkWEWj KsJ3mJGxDUJilNQvA751t3 paj8iyvoZwdOI1SJUoCOZ0 UNgkosUvguS4AVbbcSErRz R6AIrzqxKpEAdefkTzsjFv Gxk8WQRkV522UAL6aSihj3 ewBZD8ZGEbNLBhHhVeGb8s jHTjS390WWOfMYWLZECgnW y9XLAadvOyoyWtcKYKe430 Q627s9lmDJGorbYylOjRwf tem3inD237CHAkhIFaskQl TkDrXAWyuKGjdTG6OMAyGY 2krwfmHpRhRW5lzvjtVcOn QT1abrn5QqEdDI4luvduBz RsDRnyQAOolghuKOClv8Yn untlQE2eN0Fjq8R3pD9rtP VjVLCebSQiXxBvHTSnhf8y lNXoCNkqf2RcJBB5hoV8tJ FuyDLaDUAjFR36Lzhen9Fg AjjwJWL0LDZiftImq3Vyd8 egThWfnlTzM2lvI5ClXDWo QEGwKLEeOeKtwoQci5Ygg1 UfsAIpfFv8y7twGQRyTFHf vWoag8hcTKA6BBDxT7A8gD Bma9sjFIvwIBBayOK3kfah ZOxkOAIaypX7ooudGGwhYO XfaDC6axjpMHxbWNCsRoX1 ndlnBOswZTCoPFH7VLevf5 77ULZ1UJtfIjnrFSwlCKEs bmNvbnRccGduZGVjXHBsYW luXHBsYWluXGYwXGZzMjRc fRlbbAxrsW6oIsBgVyCsRS kgXJ9pLXFlF5znmPBaTWIi ZPOmF0nyXsVdcO1loXelYV haxpLoNQGtDx1jLXVtOs5j bWVkLlxwYXJ9 Gross assessment was [facility] performed at ([facility], Department = 2777) of Pathology, [address] [place] [address], Technical component was [facility] performed at ([facility], = 2778) Department of Pathology, [address] [place] [address], Professional component [facility] was performed at ([facility], Department code = 2779) of Pathology, [address] [place] [address], [facility] [id number] 10:21:00Surgical Pathology Report Case: [id number] Authorizing Provider: Tala Santacruz DPM Collected: 12/30/2019 01:38 PM Ordering Location: [address] Med/Surg Received: 12/31/2019 06:52 AM Pathologist: [...] TISSUE FORMATION Signing Pathologist Direct Phone Line: [phone] signed by Jovita Griffith MD on 01/04/2020 at 10:21 AMMG/[id number] of left 5th metatarsal, ulcer of bilateral [...] entirely B1 and into decal solution. MG/Veronica-B. Performed.[facility], Department of Pathology, [address] [place] [address], Sthlkm [facility], Department of Pathology, [address] [place] [address], [facility], [facility] of [facility], [address] [place] [address], HLGPJTUCJ [id number] 10:47:00 Test Item Value Reference Interpretation Comments [...] negative Staphylococcus SURGICALLY OBTAINED CULTURE + GRAM [id number] 08:31:00 Test Item Value Reference Range Interpretation Comments CULTURE (BEAKER) (test code No growth = 1095) GRAM STAIN RESULT (BEAKER) <1+ WBCs (test code = 1123) GRAM STAIN RESULT (BEAKER) No organisms seen (test code = 04671) SURGICALLY OBTAINED CULTURE + GRAM [id number] 08:19:00 Test Item Value Reference Interpretation Comments Range CULTURE (BEAKER) STENOTROPHOMONAS A 2+ Sten otrophomonas (test code = 1095) MALTOPHILIA maltophil ia Levofloxacin (test S code = 22) Trimethoprim + S Sulfamethoxazole (test code = 47) GRAM STAIN RESULT <1+ WBCs (BEAKER) (test code = 1123) GRAM STAIN RESULT No organisms seen (BEAKER) (test code = 569273) POC-Glucose [id number] 06:47:00 Test Item Value Reference Range Interpretation Comments POC-Glucose Meter (test 102 mg/dL 70-110 : TE STED AT [facility] code = 1538) [address] [place] [address]: Plastic Installer/Techni artemio ID = [id number] for Anne Salgado Lab Interpretation (test Normal code = 27666-3) [facility] [id number] 06:47:00 Test Item Value Reference Range Interpretation Comments POC-GLUCOSE METER 102 mg/dL 70-110 : TESTED A T [address] 1317 (BEAKER) (test code [address], = 1538) [facility] [place] [address]: Plastic Installer/Techni artemio ID = [id number] for Anne Busby Comprehensive metabolic [id number] 06:34:00 Test Item Value Reference Range Interpretation Comments Protein, Total (test 6.1 See_Comment [Autom ated code = 2885-2) message] The system which generated this result transmit merna reference range : 6.0 - 8.5 gm/dL . The reference range was not u sed to interpret th is result as normal/abnormal . Albumin (test code = 2.3 g/dL 3.5-5 L 61017-3) Alkaline Phosphatase 81 U/L 30-115 (test code = 6768-6) Total Bilirubin (test 0.4 mg/dL 0.1-1.2 code = 1975-2) Sodium (test code = 137 meq/L 135-674 3703-2) Potassium (test code 3.7 meq/L 3.6-5.5 = 2823-3) Chloride (test code = 100 meq/L 98-106 2075-0) CO2 (test code = 28 meq/L 20-29 2028-9) BUN (test code = 14 mg/dL 10-26 3094-0) Creatinine (test code 2.31 mg/dL 0.5-1.2 H = 2160-0) Glucose (test code = 100 mg/dL 70-110 2345-7) Calcium (test code = 7.5 mg/dL 8.5-10.5 L 85277-9) AST (test code = 15 U/L 5-40 1920-8) ALT (test code = 6 U/L 5-50 1742-6) EGFR (test code = 21 mL/min/1[place]73 [place] [address]-4) NOT ACCURATE CREATININE CLEARANCE IN PREDICTING GLOMERULAR FILTRATION RATE . ESTIMATED GFR I S NOT APPLICABLE FOR DIALYSIS PATIEN ZIA (test code = ZIA) Plastic Installer ID - ADMIN Lab Interpretation Abnormal (test code = 60072-2) [facility] Center[facility]PRE[facility] METABOLIC [id number] 06:34:00 Test Item Value Reference Range Interpretation [...] S NOT APPLICABLE FOR DIALYSIS PATIEN TS. Plastic Installer ID - ADMINCBC with platelet count + automated [id number] 06:06:00 Test Item Value Reference Range Interpretation Comments WBC (test code = 6690-2) 5.7 See_Comment [A utomated message] The system Karisma Kidz generated this result transmitted ref erence range: 4.0 - 10 .0 K/L. The refe rence range was not u sed to interpret this result as normal/abnor mal. RBC (test code = 789-8) 2.41 See_Comment L [Au tomated message] The system Karisma Kidz generated this result transmitted ref erence range: 4.00 - 5 .00 M/L. The refe rence range was not u sed to interpret this result as normal/abnor mal. MCHC (test code = 786-4) 30.8 See_Comment L [A utomated message] The system Karisma Kidz generated this result transmitted ref erence range: [...] L [Aut omated message] 777-3) The system Karisma Kidz generated this result transmitted ref erence range: 150 - 43 0 K/CU MM. The referen ce range was not u sed to interpret this result as normal/abnor mal. MPV (test code = 10.5 fL 6-11.5 22266-4) nRBC (test code = 413) 0 See_Comment [Aut omated message] The system Karisma Kidz generated this result transmitted ref erence range: [...] See_Comment [Aut omated message] 670) The system Karisma Kidz generated this result transmitted ref erence range: 1.80 - 8 .00 K/L. The refe rence range was not u sed to interpret this result as normal/abnor mal. # Lymphs (test code = 1.66 See_Comment [Auto mated message] 414) The system Karisma Kidz generated this result transmitted ref erence range: 1.48 - 4 .50 K/L. The refe rence range was not u sed to interpret this result as normal/abnor mal. # Monos (test code = 0.28 See_Comment [Autom ated message] 415) The system Karisma Kidz generated this result transmitted ref erence range: 0.00 - 1 .30 K/L. The refe rence range was not u sed to interpret this result as normal/abnor mal. # Eos (test code = 416) 0.12 See_Comment [Au tomated message] The system Karisma Kidz generated this result transmitted ref erence range: 0.00 - 0 .50 K/L. The refe rence range was not u sed to interpret this result as normal/abnor mal. # Baso (test code = 417) 0.07 See_Comment [A utomated message] The system Karisma Kidz generated this result transmitted ref erence range: 0.00 - 0 .20 K/L. The refe rence range was not u sed to interpret this result as normal/abnor mal. Immature 0 % 0-0 Granulocytes-Relative (test code = 2801) Lab Interpretation (test Abnormal code = 56886-7) [facility] W/PLT COUNT & AUTO [id number] 06:06:00 Test Item Value Reference Range Interpretation [...] PERCENT (BEAKER) (test code = 2801) POCT-GLUCOSE [id number] 21:02:00 Test Item Value Reference Range Interpretation Comments POC-GLUCOSE METER 167 mg/dL 70-110 H : TESTED A T [address] (BEAKER) (test code [facility] [address], = 1538) [place] [address]: Plastic Installer/Techni artemio ID = [id number] for Ashley austin Anne POCT-GLUCOSE [id number] 18:12:00 Test Item Value Reference Range Interpretation Comments POC-GLUCOSE METER 121 mg/dL 70-110 H : TESTED A T [address] (BEAKER) (test [facility], = 1538) [place] [address]: Plastic Installer/Techni artemio ID = [id number] for Cortney Cohen POCT-GLUCOSE [id number] 11:54:00 Test Item Value Reference Range Interpretation Comments POC-GLUCOSE METER 117 mg/dL 70-110 H : TESTED A T [address] (BEAKER) (test code [address], = 1538) [facility] [place] [address]: Plastic Installer/Techni artemio ID = [id number] for Cortney Cohen COMPREHENSIVE METABOLIC [id number] 06:47:00 Test Item Value Reference Range Interpretation [...] S NOT APPLICABLE FOR DIALYSIS PATIEN TS. Plastic Installer ID - [id number] 06:42:00 Test Item Value Reference Range Interpretation Comments Magnesium (test code = 1.6 mg/dL 1.5-3 99625-0) ZIA (test code = ZIA) Plastic Installer ID - ADMIN Lab Interpretation (test Normal code = 40342-8) [facility] [id number] 06:42:00 Test Item Value Reference Range Interpretation Comments POC-GLUCOSE METER 101 mg/dL 70-110 : TESTED A T [address] [address] (BEAKER) (test code [address], = 1538) [facility] [place] [address]: Plastic Installer/Techni artemio ID = [id number] for Anne Busby [id number] 06:42:00 Test Item Value Reference Range Interpretation Comments MAGNESIUM (BEAKER) (test code = 1.6 mg/dL 1.5-3.0 627) Plastic Installer ID - ADMINCBC W/PLT COUNT & AUTO [id number] 06:37:00 Test Item Value Reference Range Interpretation [...] PERCENT (BEAKER) (test code = 2801) POCT-GLUCOSE [id number] 20:24:00 Test Item Value Reference Range Interpretation Comments POC-GLUCOSE METER 155 mg/dL 70-110 H : TESTED A T [facility] 1317 (BEAKER) (test code [facility] NT [facility], = 1538) [facility] [address]: Plastic Installer/Techni artemio ID = [id number] for Anne Busby POCT-GLUCOSE [id number] 16:39:00 Test Item Value Reference Range Interpretation Comments POC-GLUCOSE METER 164 mg/dL 70-110 H : Notified RN/MD: TESTED (BEAKER) (test code AT [facility] [address] = 1538) [facility] [address]: Plastic Installer/Techni artemio ID = [id number] for Alondra Kelley SARS-CoV2/RT-PCR (Asymptomatic ONLY)2019-12-30 15:57:00 Test Item Value Reference Range Interpretation Comments SARS-COV2/RT-PCR Negative Not Detected, (test code = Negative, See 77611-1) external report for linked test SARS-COV-2 [facility] J[facility]ET PERFORMING LAB (test code = 04100-5) ZIA (test code = Negative result for [...] of the Act. Fact Sheet for Healthcare Providers:https://www.[employer]/sites/default/f loco/product/documents/F act_Sheet_HC_Providers_L bff_BYSQ-StR-5.pdf Fact Sheet for Healthcare Patients:https://www.[employer]Mail/sites/default/fi les/product/documents/Fa ct_Sheet_Patients_Lyra_S ARS-CoV-2.pdf Performing Laboratory:[facility] [place] [address] [facility] ([facility])2019-12-30 15:57:00 Test Item Value Reference Range Interpretation Comments SARS-COV2/RT-PCR (test Negative Not Detected, Negative, code = 7689835) See external report for linked test SARS-COV-2 PERFORMING LAB [facility] JANET (test code = 0112360) Negative result for this test determines that [...] 564(g) of the Act.Fact Sheet for Healthcare Providers:https://www.[employer]/sites/default/files/product/documents/Fact_Shee w_YV_Brxlkpsqp_Aeey_DZAQ-FcJ-2.pdfFact Sheet for Healthcare Patients:https://www.[employer]/sites/default/files/product/ documents/Zigm_Cqjob_Uyrgppou_Zdbf_DCBB-VuV-8.pdfPerforming Laboratory:[facility], [place] [address]SJJO-FNERVZH METER 2019-12-30 11:50:00 Test Item Value Reference Range Interpretation Comments POC-GLUCOSE METER 82 mg/dL 70-110 : Notified RN/MD: TESTED (ROBERT) (test code = AT [facility] [address] [place] [address]) [facility] [address]: Plastic Installer/Techni artemio ID = [id number] for Alondra Kelley WOUND CULTURE + GRAM [id number] 10:45:00 Test Item Value Reference Interpretation Comments [...] gram negative (BEAKER) (test code rods = 338867) POCT-GLUCOSE [id number] 05:50:00 Test Item Value Reference Range Interpretation Comments POC-GLUCOSE METER 103 mg/dL 70-110 : Notified RN/MD: TESTED (BEAKER) (test code AT [place] [address] [address] = 1538) [facility] [address]: Plastic Installer/Techni artemio ID = [id number] for Zonia Healy COMPREHENSIVE METABOLIC [id number] 05:44:00 Test Item Value Reference Range Interpretation [...] S NOT APPLICABLE FOR DIALYSIS PATIEN TS. Plastic Installer ID - ADMINCBC W/PLT COUNT & AUTO [id number] 05:29:00 Test Item Value Reference Range Interpretation [...] PERCENT (BEAKER) (test code = 2801) POCT-GLUCOSE [id number] 21:21:00 Test Item Value Reference Range Interpretation Comments POC-GLUCOSE METER 185 mg/dL 70-110 H : Notified RN/MD: TESTED (BEAKER) (test code AT [facility] [address] [address] = 1538) [place] [address]: Plastic Installer/Techni artemio ID = [id number] for Zonia Healy POCT-GLUCOSE [id number] 11:21:00 Test Item Value Reference Range Interpretation Comments POC-GLUCOSE METER 143 mg/dL 70-110 H : Notified RN/MD: TESTED (BEAKER) (test code AT [facility] [address] [address] = 1538) [place] [address]: Plastic Installer/Techni artemio ID = [id number] for Alondra Kelley COMPREHENSIVE METABOLIC [id number] 06:27:00 Test Item Value Reference Range Interpretation [...] S NOT APPLICABLE FOR DIALYSIS PATIISA TS. Plastic Installer ID - ADMINPOCT-GLUCOSE [id number] 06:21:00 Test Item Value Reference Range Interpretation Comments POC-GLUCOSE METER 73 mg/dL 70-110 : Notified RN/MD: TESTED (BEAKER) (test code = AT [address] [address]) [facility] [address]: Plastic Installer/Techni artemio ID = [id number] for Zonia Healy CBC W/PLT COUNT & AUTO [id number] 06:00:00 Test Item Value Reference Range Interpretation [...] PERCENT (BEAKER) (test code = 2801) POCT-GLUCOSE [id number] 20:48:00 Test Item Value Reference Range Interpretation Comments POC-GLUCOSE METER 84 mg/dL 70-110 : Notified RN/MD: TESTED (BEAKER) (test code = AT [address]) [facility] [address]: Plastic Installer/Techni artemio ID = [id number] for Zonia Healy POCT-GLUCOSE [id number] 17:51:00 Test Item Value Reference Range Interpretation Comments POC-GLUCOSE METER 59 mg/dL 70-110 L : TESTED A T [facility] [address] ([facility] (test code = [address], [address]) [place] [address]: Plastic Installer/Techni artemio ID = [id number] for Christina Lea osbornee POCT-GLUCOSE [id number] 13:28:00 Test Item Value Reference Range Interpretation Comments POC-GLUCOSE METER 67 mg/dL 70-110 L : TESTED A T [facility] [address] (BEAKER) (test code = [address], 1538) [place] [address]: Plastic Installer/Techni artemio ID = [id number] for Christina r, Berta POCT-GLUCOSE [id number] 06:04:00 Test Item Value Reference Range Interpretation Comments POC-GLUCOSE METER 94 mg/dL 70-110 : TESTED A T [facility] [address] (BEAKER) (test code = [address], 1538) [place] [address]: Plastic Installer/Techni artemio ID = [id number] for Anahi Sherman COMPREHENSIVE METABOLIC [id number] 05:35:00 Test Item Value Reference Range Interpretation [...] S NOT APPLICABLE FOR DIALYSIS PATIEN TS. Plastic Installer ID - ADMINCBC W/PLT COUNT & AUTO [id number] 04:56:00 Test Item Value Reference Range Interpretation [...] PERCENT (BEAKER) (test code = 2801) POCT-GLUCOSE [id number] 20:43:00 Test Item Value Reference Range Interpretation Comments POC-GLUCOSE METER 137 mg/dL 70-110 H : TESTED A T [facility] [address] (BEAKER) (test code [address], = 1538) [facility] [address]: Plastic Installer/Techni artemio ID = [id number] for Anahi Sherman MR, EXTREMITY, LOWER, WITHOUT CONTRAST, [id number] 16:55:00MRI LEFT FOOT.Unlisted Reason for Exam - [...] 16:55:07 Reading Location: [facility] Radiology Reading Room MR lower extremity without IV contrast left [id number] 16:55:00Interface, External Ris In - 12/27/2019 4:57 [...] 16:55:07 Reading Location: [facility] Radiology Reading Room Electronically signed by: Adrienne CHU 12/27/2019 04:55 [facility] [id number] 14:19:00 Test Item Value Reference Range Interpretation Comments POC-GLUCOSE METER 232 mg/dL 70-110 H : TESTED A T [facility] 1317 (BEAKER) (test code [address], = 1538) [facility] 77 478: Plastic Installer/Techni artemio ID = [id number] for Christina rBerta CT, CTA AAA, W/ GÓMEZ.EXT.[id number] 11:38:00Bilateral lower extremities Addendum BeginsREPORT STATUS:A I agree with the nonvascular findings with exceptions and emphasis as below:*Moderate right and small left pleural effusions are partially visualized.*Large volume ascites.*Diffuse anasarca*The reflux of contrast into the hepatic veins is concerning for volume overload. Signed: Molly Linares MDRtieraort Verified Date/Time: 12/27/2019 11:38:28 Reading Location: [facility] Diagnostic Imaging Reading Room - [facility] F1 [address]Addendum EndsFINAL REPORT CT angiography of the abdominal aorta and runoff, 26-Dec-19 INDICATION: This is a 64 year old female with with lower leg penetrating trauma presents for assessment. TECHNIQUE: Spiral acquisition before and during intravenous contrast administration using a Open[employer] multidetector CT scanner. Images were obtained before [...] identified. However, significant calcification identified of the nikolski left SFA, for example at image 516, [...] the right popliteal artery is patent, with tovq-qq-fiibzrub diffuse calcification identified with no obstructive lesion [...] However, in the distal left SFA, the nikolski artery substantial calcification identified and the stent [...] atherosclerosis identified. 4. In the right, the nikolski right SFA is not filled by contrast [...] dictated regarding the non-vascular findings by the Set Up Mechanic Radiologist. Signed: Shlomo Dockery MDReport Verified Date/Time: 12/27/2019 07:59:51 Reading Location: [place] [address] [address] Reading Room Protein electrophoresis, serum 2019-12-27 [...] as normal/abnormal . ZIA (test code = Plastic Installer ID - ZIA) LEONIE Jay Lab Interpretation Abnormal (test code = 96798-3) [facility] CenterPROTEIN ELECTROPHORESIS, [id number] 09:29:00 Test Item Value Reference Range Interpretation [...] chronic inflammatory response. No monoclonal bands detected. [id number] Rocio Galindo MD (BEAKER) (test code = (electronic signature) 2616) PROTEIN TOTAL SERUM, 6.3 gm/dL 6.0-8.3 SPEP (ROBERT) (test code = 2660) Plastic Installer ID - LEONIE OLIVEIRA AAA and [id number] 07:59:00Interface, External Ris In - 12/27/2019 11:40 AM CDTAddendum BeginsREPORT STATUS:A I agree with the nonvascular findings with exceptions and emphasis as below:*Moderate right andsmall left pleural effusions are partially visualized.*Large volume ascites.*Diffuse anasarca*The reflux of contrast into the hepatic veins is concerning for volume overload. Signed: Junior Linaresy MDReport Verified Date/Time: 12/27/2019 11:38:28 Reading Location: [facility] Diagnostic Imaging Reading Room - [place] [address] [address] REPORT CT angiography of the abdominal aorta and runoff, 26-Dec-19 INDICATION: This is a 64 year old female with with lower leg penetrating trauma presents for assessment. TECHNIQUE: Spiral acquisition before and during intravenous contrast administration using a OpenGov multidetector CT scanner. Images were obtained before [...] identified. However, significant calcification identified of the nikolski left SFA, for example at image 516, [...] the right popliteal artery is patent, with lepd-vj-ushjkceg diffuse calcification identified with no obstructive lesion [...] However, in the distal left SFA, the nikolski artery substantial calcification identified and the stent [...] atherosclerosis identified. 4. In the right, the nikolski right SFA is not filled by contrast [...] dictated regarding the non-vascular findings by the Set Up Mechanic Radiologist. Signed: Shlomo Dockery MDReport Verified Date/Time: 12/27/2019 07:59:51 Reading Location: [place] [address] [address] Reading Room [facility] [id number] 06:56:00 Test Item Value Reference Range Interpretation Comments POC-GLUCOSE METER 39 mg/dL 70-110 LL : Notified RN/: [facility] (test code = AT [facility] L 1317 [facility] 1538) [facility] [address]: Plastic Installer/Techni artemio ID = [id number] for Anahi Sherman COMPREHENSIVE METABOLIC [id number] 06:15:00 Test Item Value Reference Range Interpretation [...] S NOT APPLICABLE FOR DIALYSIS PATIEN TS. Plastic Installer ID - ADMINPOCT-GLUCOSE [id number] 06:01:00 Test Item Value Reference Range Interpretation Comments POC-GLUCOSE METER 55 mg/dL 70-110 L : Notified RN/MD: TESTED (BEAKER) (test code = AT SLS L 1317 [facility] 1538) [facility] [address]: Plastic Installer/Techni artemio ID = [id number] for Anahi Sherman CBC W/PLT COUNT & AUTO [id number] 05:44:00 Test Item Value Reference Range Interpretation [...] PERCENT (BEAKER) (test code = 2801) POCT-GLUCOSE [id number] 21:03:00 Test Item Value Reference Range Interpretation Comments POC-GLUCOSE METER 278 mg/dL 70-110 H : Notified RN/MD: TESTED (BEAKER) (test code AT [address] = 1538) [facility] [address]: Plastic Installer/Techni artemio ID = [id number] for Anahi Sherman POCT-GLUCOSE [id number] 16:53:00 Test Item Value Reference Range Interpretation Comments POC-GLUCOSE METER 70 mg/dL 70-110 : TESTED A T [facility] 1317 (BEAKER) (test code = [address], 1538) [place] [address]: Plastic Installer/Techni artemio ID = [id number] for Nalini Jean Baptiste POCT-GLUCOSE [id number] 12:11:00 Test Item Value Reference Range Interpretation Comments POC-GLUCOSE METER 97 mg/dL 70-110 : TESTED A T [facility] 1317 (BEAKER) (test code = [address], 1538) [place] [address] 478: Plastic Installer/Techni artemio ID = [id number] for Nalini Jean Baptiste POCT-GLUCOSE [id number] 06:21:00 Test Item Value Reference Range Interpretation Comments POC-GLUCOSE METER 71 mg/dL 70-110 : TESTED A T [facility] 1317 (BEAKER) (test code = [address], 1538) [place] [address]: Plastic Installer/Techni artemio ID = [id number] for Holly Alamo COMPREHENSIVE METABOLIC [id number] 05:50:00 Test Item Value Reference Range Interpretation [...] S NOT APPLICABLE FOR DIALYSIS PATIEN TS. Plastic Installer ID - ADMINCBC W/PLT COUNT & AUTO [id number] 05:17:00 Test Item Value Reference Range Interpretation [...] (BEAKER) (test code = 2801) Prepare Leuko-Red [id number] 23:54:00 Test Item Value Reference Range Interpretation Comments CROSSMATCH (test code = 2264) COMPATIBLE Unit ABO (test code = O Pos 6372763) UNIT NUMBER (test code = [id number] 934-0) Status (test code = 7812667) [facility] Blood Bank Product (test code RED BLOOD CELLS = 2263) PRODUCT CODE (test code = H3946A39 933-2) [facility] CenterPOCT-GLU[facility]SE [id number] 21:03:00 Test Item Value Reference Range Interpretation Comments POC-GLUCOSE METER 87 mg/dL 70-110 : TESTED A T [facility] 1317 (BEAKER) (test code = [address], 1538) [place] [address]: Plastic Installer/Techni artemio ID = [id number] for Nwad iufu, Holly POCT-GLUCOSE [id number] 17:12:00 Test Item Value Reference Range Interpretation Comments POC-GLUCOSE METER 79 mg/dL 70-110 : TESTED A T [facility] 1317 (BEAKER) (test code = [address], 1538) [place] [address] 478: Plastic Installer/Techni artemio ID = [id number] for Akhil rs, Rachelleea POCT-GLUCOSE [id number] 11:37:00 Test Item Value Reference Range Interpretation Comments POC-GLUCOSE METER 262 mg/dL 70-110 H : TESTED A T [facility] 1317 (BEAKER) (test code [address], = 1538) [facility] 77 478: Plastic Installer/Techni artemio ID = [id number] for Nalini Jean Baptiste COMPREHENSIVE METABOLIC [id number] 06:29:00 Test Item Value Reference Range Interpretation [...] S NOT APPLICABLE FOR DIALYSIS PATIEN TS. Plastic Installer ID - ADMINCBC W/PLT COUNT & AUTO [id number] 06:12:00 Test Item Value Reference Range Interpretation [...] PERCENT (BEAKER) (test code = 2801) POCT-GLUCOSE [id number] 06:09:00 Test Item Value Reference Range Interpretation Comments POC-GLUCOSE METER 83 mg/dL 70-110 : Notified RN/MD: TESTED (BEAKER) (test code = AT SLS L [address]) [facility] [address]: Plastic Installer/Techni artemio ID = [id number] for Anahi Sherman POCT-GLUCOSE [id number] 16:26:00 Test Item Value Reference Range Interpretation Comments POC-GLUCOSE METER 182 mg/dL 70-110 H : Notified RN/MD: TESTED (BEAKER) (test code AT [facility] [address] = 1538) [facility] [address]: Plastic Installer/Techni artemio ID = [id number] for Alondra Kelley, [id number] 09:17:00 Test Item Value Reference Range Interpretation Comments Rh Factor (test code = POS 2589) ABO Grouping (test code O PINK TOP 12/24/19 @ 08 = 2588) [facility] CenterType and screen, [id number] 07:31:00 Test Item Value Reference Range Interpretation Comments ABO/RH AUTOMATED (BEAKER) (test O POSITIVE ECHO code = 2260) Ab Scrn (test code = 890-4) NEGATIVE ECHO [facility] CenterCOMPREHENSIVE METABOLIC [id number] 06:42:00 Test Item Value Reference Range Interpretation [...] S NOT APPLICABLE FOR DIALYSIS PATIEN TS. Plastic Installer ID - ADMINPOCT-GLUCOSE [id number] 06:23:00 Test Item Value Reference Range Interpretation Comments POC-GLUCOSE METER 88 mg/dL 70-110 : TESTED A T [facility] 1317 (BEAKER) (test code = [address], 1538) [facility] 77 478: Plastic Installer/Techni artemio ID = [id number] for Anne Busby CBC W/PLT COUNT & AUTO [id number] 06:23:00 Test Item Value Reference Range Interpretation [...] PERCENT (BEAKER) (test code = 2801) POCT-GLUCOSE [id number] 21:38:00 Test Item Value Reference Range Interpretation Comments POC-GLUCOSE METER 126 mg/dL 70-110 H : TESTED A T [facility] 1317 (BEAKER) (test code [address], = 1538) [facility] 77 478: Plastic Installer/Techni artemio ID = [id number] for Anne Busby POCT-GLUCOSE [id number] 16:54:00 Test Item Value Reference Range Interpretation Comments POC-GLUCOSE METER 89 mg/dL 70-110 : Notified RN/MD: TESTED (BEAKER) (test code = AT SLS L [address]) [facility], [facility] [address]: Plastic Installer/Techni artemio ID = [id number] for Alondra Kelley MR, EXTREMITY, LOWER, JOINT, WITHOUT CONTRAST, [id number] 16:10:00Unlisted Reason for Exam - Click Yes [...] Jordan Verified Date/Time: 12/23/2019 16:10:32 Reading Location: [address] Ortho Consult Reading Room MR lower extremity joint only without IV contrast left [id number] 16:10:00Interface, External Ris In - 12/23/2019 4:12 [...] Jordan Verified Date/Time: 12/23/2019 16:10:32 Reading Location: [facility] C013X Ortho Consult Reading Room [facility], WITHOUT [id number] 15:43:00Unlisted Reason for Exam - Click Yes [...] Date/Time: 12/23/2019 15:43:24 MR brain without IV [id number] 15:43:00Interface, External Ris In - 12/23/2019 3:45 [...] Signed: Berta Muniz Verified Date/Time: 12/23/2019 15:43:24 [facility])2019-12-23 14:16:00 Test Item Value Reference Range Interpretation Comments SARS-COV2/RT-PCR (test Negative Not Detected, Negative, code = 2311280) See external report for linked test SARS-COV-2 PERFORMING LAB [facility] (test code = 4335440) Negative result for this test determines that [...] 564(g) of the Act.Fact Sheet for Healthcare Providers:https://www.[employer]/sites/default/files/product/documents/Fact_Shee d_[place]_Qdljubhxz_Zzxh_JXZE-CqD-0.pdfFact Sheet for Healthcare Patients:https://www.[employer]/sites/default/files/product/ documents/Vjck_Fkhdr_Ltcxnbmu_Pguc_XGWQ-GfQ-9.pdfPerforming Laboratory:[facility], [place] [address]Qmzjo / lambda light chains, [id number] 12:25:00 Test Item Value Reference Interpretation Comments Range Jordan Lt Chain,Free 474.4 mg/L 3.3-19.4 H (test code = 94128-5) Lambda Lt 225.6 mg/L 5.7-26.3 H Chain,Free (test code = 88518-8) Jordan/Lambda,Free 2.1 0.26-1.65 H Free annabelle a/lambda (test code = ratio in serum of 2547886) normal individu als is 0.26-1.65. Excessproductio n [...] (test code = Performing Lab ZIA) EZ [facility] [address] [place] [address] Jaguar Stein MD, PhD, CORI Lab Interpretation Abnormal (test code = 67356-0) [facility] CenterPOCT-GLUCOSE [id number] 11:27:00 Test Item Value Reference Range Interpretation Comments POC-GLUCOSE METER 189 mg/dL 70-110 H : Notified RN/MD: TESTED (ROBERT) (test code AT [facility] [address] = 1538) JAYNAJoe [facility] [address]: Plastic Installer/Techni artemio ID = [id number] for Alondra Kelley ARTERIAL DOPPLER LEGS, [id number] 11:22:00Reason for exam:->non healing ulcer , non [...] MDReport Verified Date/Time: 12/23/2019 11:22:31 Reading Location: [facility] Radiology Reading Room Arterial Doppler Legs [id number] 11:22:00 Interface, External Ris In - 12/23/2019 [...] MDReport Verified Date/Time: 12/23/2019 11:22:31 Reading Location: [facility] Radiology Reading Room [facility]estoCOMPREHENSIVE METABOLIC [id number] 04:44:00 Test Item Value Reference Range Interpretation [...] S NOT APPLICABLE FOR DIALYSIS PATIEN TS. Plastic Installer ID - ADMINCBC W/PLT COUNT & AUTO [id number] 04:35:00 Test Item Value Reference Range Interpretation [...] H PERCENT (BEAKER) (test code = 2801) [id number] 04:29:00 Test Item Value Reference Range Interpretation Comments Ammonia (test code = 36 See_Comment [Autom ated 68039-8) message] The system which generated this result transmit merna reference range : 17 - 80 mol/L . The reference range was not u sed to interpret th is result as normal/abnormal . ZIA (test code = ZIA) Plastic Installer ID - ADMIN Lab Interpretation Normal (test code = 57840-8) [facility] CenterAMMONIA2020-09-24 04:29:00 Test Item Value Reference Range Interpretation Comments AMMONIA (BEAKER) (test code = 348) 36 mol/L 17-80 Plastic Installer ID - ADMINPOCT-GLUCOSE [id number] 20:45:00 Test Item Value Reference Range Interpretation Comments POC-GLUCOSE METER 95 mg/dL 70-110 : TESTED A T [facility] [address] (BEAKER) (test code = [address], 1538) [place] [address]: Plastic Installer/Techni artemio ID = [id number] for Anne Busby POCT-GLUCOSE [id number] 17:08:00 Test Item Value Reference Range Interpretation Comments POC-GLUCOSE METER 107 mg/dL 70-110 : TESTED A T [facility] [address] (BEAKER) (test code [address], = 1538) [place] [address]: Plastic Installer/Techni artemio ID = [id number] for Jordyn Fonseca POCT-GLUCOSE [id number] 11:55:00 Test Item Value Reference Range Interpretation Comments POC-GLUCOSE METER 135 mg/dL 70-110 H : TESTED A T [facility] [address] (BEAKER) (test code [address], = 1538) [place] [address] 478: Plastic Installer/Techni artemio ID = [id number] for Jordyn Fonseca ROGER Titer & [id number] 11:40:00 Test Item Value Reference Range Interpretation Comments ROGER Titer (test code = 91397-7) 1:40 ROGER Pattern (test code = 1781) Speckled [facility] CenterAnti-Nuclear Antibody (ROGER)2019-12-22 11:40:00 Test Item Value Reference Range Interpretation Comments ROGER (test code = 93111-9) Positive Negative A ZIA (test code = ZIA) Test performed by IFA method. Lab Interpretation (test Abnormal code = 59807-2) [facility] CenterANTI-NUCLEAR ANTIBODY (ROGER)2019-12-22 11:40:00 Test Item Value Reference Range Interpretation Comments ANTI-NUCLEAR ANTIBODY (ROGER) (BEAKER) Positive Negative A (test code = 418) Test performed by IFA method.ROGER TITER AND [id number] 11:40:00 Test Item Value Reference Range Interpretation Comments ROGER TITER (BEAKER) (test code = :40 1541) ROGER PATTERN (BEAKER) (test code = Speckled 1781) POCT-GLUCOSE [id number] 06:44:00 Test Item Value Reference Range Interpretation Comments POC-GLUCOSE METER 92 mg/dL 70-110 : TESTED A T [facility] [address]17 (BEAKER) (test code = [address], 1538) [facility] 77 [address]: Plastic Installer/Techni artemio ID = [id number] for Anne Busby COMPREHENSIVE METABOLIC [id number] 06:35:00 Test Item Value Reference Range Interpretation [...] S NOT APPLICABLE FOR DIALYSIS PATIEN TS. Plastic Installer ID - ADMINCBC W/PLT COUNT & AUTO [id number] 06:16:00 Test Item Value Reference Range Interpretation [...] PERCENT (BEAKER) (test code = 2801) POCT-GLUCOSE [id number] 20:38:00 Test Item Value Reference Range Interpretation Comments POC-GLUCOSE METER 85 mg/dL 70-110 : TESTED A T [facility] [address]17 (BEAKER) (test code = [address], 1538) [place] [address]: Plastic Installer/Techni artemio ID = [id number] for Anne Busby POCT-GLUCOSE [id number] 18:14:00 Test Item Value Reference Range Interpretation Comments POC-GLUCOSE METER 112 mg/dL 70-110 H : TESTED A T [facility] [address]17 (BEAKER) (test code [address], = 1538) [place] [address]: Plastic Installer/Techni artemio ID = [id number] for Berta Servin POCT-GLUCOSE [id number] 13:00:00 Test Item Value Reference Range Interpretation Comments POC-GLUCOSE METER 77 mg/dL 70-110 : TESTED A T [facility] [address] (BEAKER) (test code = [address], 1538) [place] [address] 478: Plastic Installer/Techni artemio ID = [id number] for Berta Servin POCT-GLUCOSE [id number] 07:32:00 Test Item Value Reference Range Interpretation Comments POC-GLUCOSE METER 60 mg/dL 70-110 L : TESTED A T [facility] [address] (BEAKER) (test code = [address], 1538) [place] [address] 478: Plastic Installer/Techni artemio ID = [id number] for Sanjay Pageshellievanessa COMPREHENSIVE METABOLIC [id number] 06:11:00 Test Item Value Reference Range Interpretation [...] 347) EGFR (BEAKER) (test 15 mL/min/1.73 ESTIMA MERAN GFR IS code = 1092) sq m NOT ACCURATE CREATININE CLEARANCE IN PREDICTING GLOMERULAR FILTRATION RATE . ESTIMATED GFR I S NOT APPLICABLE FOR DIALYSIS PATIEN TS. Plastic Installer ID - ADMINC-Reactive [id number] 06:06:00 Test Item Value Reference Range Interpretation Comments CRP (test code = 676) 1.63 mg/dL 0-0.5 H ZIA (test code = ZIA) Plastic Installer ID - ADMIN Lab Interpretation (test Abnormal code = 70902-4) [facility] CenterC-REACTIVE [id number] 06:06:00 Test Item Value Reference Range Interpretation Comments C-REACTIVE PROTEIN (BEAKER) (test 1.63 mg/dL 0.00-0.50 H code = 676) Plastic Installer ID - ADMINPOCT-GLUCOSE [id number] 06:04:00 Test Item Value Reference Range Interpretation Comments POC-GLUCOSE METER 56 mg/dL 70-110 L : Notified RN/MD: TESTED (BEAKER) (test code = AT SLS L [address]) [facility] [address]: Plastic Installer/Techni artemio ID = [id number] for Nelda Abdi CBC W/PLT COUNT & AUTO [id number] 05:53:00 Test Item Value Reference Range Interpretation [...] (BEAKER) (test code = 2801) U/S, ABDOMINAL, [id number] 22:02:00Reason for exam:->thrombocytopenia / eval for hepatosplenomegalyFINAL [...] MDReport Verified Date/Time: 12/20/2019 22:02:21 US abdomen [id number] 22:02:00Interface, External Ris In - 12/20/2019 10:04 [...] Marin MDReport Verified Date/Time: 12/20/2019 22:02:21 [facility]PO[facility] [id number] 20:36:00 Test Item Value Reference Range Interpretation Comments POC-GLUCOSE METER 74 mg/dL 70-110 : Notified RN/MD: TESTED (BEAKER) (test code = AT SLS L [address]) [facility] [address]: Plastic Installer/Techni artemio ID = [id number] for Nelda Abdi POCT-GLUCOSE [id number] 17:50:00 Test Item Value Reference Range Interpretation Comments POC-GLUCOSE METER 72 mg/dL 70-110 : TESTED A T [facility] 1317 ([facility] (test code = [address] [facility], 1538) [facility] [address]: Plastic Installer/Techni artemio ID = [id number] for Berta Servin CT, BRAIN, WITHOUT [id number] 16:08:00Unlisted Reason for Exam - Click Yes [...] Date/Time: 12/20/2019 16:08:40 CT brain without IV [id number] 16:08:00Interface, External Ris In - 12/20/2019 4:10 [...] Muniz MDReport Verified Date/Time: 12/20/2019 16:08:40 [facility]RAD, [facility]OT, 2 VIEWS, [id number] 15:15:00Reason for exam:->Rule out osteomyelitisShould this be [...] Monahaneport Verified Date/Time: 12/20/2019 15:15:25 Reading Location: [facility] Radiology Reading Room , FOOT, 2 VIEWS, [id number] 15:15:00Reason for exam:->Rule out osteomyelitisShould this be [...] Monahanort Verified Date/Time: 12/20/2019 15:15:25 Reading Location: [facility] Radiology Reading Room XR foot 2 views [id number] 15:15:00Interface, External Ris In - 12/20/2019 3:17 [...] Monahan Verified Date/Time: 12/20/2019 15:15:25 Reading Location: [facility] Radiology Reading Room [facility] HospitalXR foot 2 views [id number] 15:15:00Interface, External Ris In - 12/20/2019 3:17 [...] Monahan Verified Date/Time: 12/20/2019 15:15:25 Reading Location: [facility] Radiology Reading Room [facility] HospitalAMMONIA2020-09-21 14:56:00 Test Item Value Reference Range Interpretation Comments AMMONIA (BEAKER) (test code = 348) 33 mol/L 17-80 Plastic Installer ID - ADMINBlood gas, [id number] 14:41:00 Test Item Value Reference Range Interpretation Comments pH, Arterial (test code 7.33 7.35-7.45 L = 2744-1) pCO2, Arterial (test 58 See_Comment H [Autom ated message] code = 2019-8) The system [facility] generated this result transmit merna reference range : 35 - 45 mmHg. The reference range was not used to interpret this result as normal/abnormal . pO2, Arterial (test 109 See_Comment H [Automa merna message] code = 2703-7) The system [facility] generated this result transmit merna reference [...] % Lab Interpretation Abnormal (test code = 88777-0) [facility] CenterBLOOD GAS, [id number] 14:41:00 Test Item Value Reference Range Interpretation [...] code = 1819) 32.0 % Occult blood, [id number] 11:56:00 Test Item Value Reference Range Interpretation Comments Occult blood (test code = 2335-8) Negative Negative Lab Interpretation (test code = Normal 18818-3) [facility] CenterOCCULT BLOOD, [id number] 11:56:00 Test Item Value Reference Range Interpretation Comments FECAL OCCULT BLOOD (BEAKER) (test Negative Negative code = 618) POCT-GLUCOSE [id number] 11:39:00 Test Item Value Reference Range Interpretation Comments POC-GLUCOSE METER 88 mg/dL 70-110 : TESTED A T [facility] [address]17 (BEAKER) (test code = [address], 1538) [facility] [address]: Plastic Installer/Techni artemio ID = [id number] for Gifty Phelps [id number] 11:22:00 Test Item Value Reference Range Interpretation Comments Haptoglobin (test code = <8 14-258 L 4542-7) ZIA (test code = ZIA) Plastic Installer ID - LEONIE F Lab Interpretation (test Abnormal code = 10710-2) [facility] CenterHAPTOGLOBIN2020-09-21 11:22:00 Test Item Value Reference Range Interpretation Comments HAPTOGLOBIN (BEAKER) (test code = < mg/dL 14-258 L 366) Plastic Installer ID - LEONIE FT4, [id number] 11:01:00 Test Item Value Reference Range Interpretation Comments Free T4 (test code = 0.52 ng/dL 0.9-1.8 L 3024-7) ZIA (test code = ZIA) Plastic Installer ID - ADMIN Lab Interpretation (test Abnormal code = 09919-2) [facility] CenterT4, [id number] 11:01:00 Test Item Value Reference Range Interpretation Comments FREE T4 (BEAKER) (test code = 655) 0.52 ng/dL 0.90-1.80 L Plastic Installer ID - ADMINPeripheral Blood Smear - Path [id number] 08:19:00 Test Item Value Reference Range Interpretation [...] Griffith M.D. code = 2849) (electronic signature) [facility] Center[facility] - PATHOLOGIST REVIEW 2019-12-20 08:19:00 Test Item Value Reference Range Interpretation Comments RBC MORPHOLOGY Target Cells (BEAKER) (test code = 2846) RBC MORPHOLOGY Basophilic Stippling (BEAKER) (test code = 49382) RBC MORPHOLOGY Nucleated Red Blood Cells (BEAKER) (test code = 28111) PERIPHERAL SMR Normochromic normocytic REVIEW (BEAKER) anemia with a few target (test code = 2640) cells, nucleated RBCs and basophilic stippling. No increase in schistocytes. WBCs normal in number and morphology. Thrombocytopenia with normal platelet morphology. [id number] Jovita Griffith M.D. 2 (BEAKER) (test (electronic signature) code = 2849) Vitamin B12 and [id number] 06:37:00 Test Item Value Reference Range Interpretation Comments Vitamin B12 (test 1431 pg/mL 211-911 H code = 2132-9) Folate (test code = 17.00 ng/mL See_Comment [Automa merna 2284-8) message] The system which generated this result transmit merna reference range : >=5.4. The reference range was not used to interpret this result as normal/abnormal . ZIA (test code = ZIA) Plastic Installer ID - ADMIN Lab Interpretation Abnormal (test code = 67872-4) [facility] CenterVITAMIN B12 AND [id number] 06:37:00 Test Item Value Reference Range Interpretation Comments VITAMIN B12 (BEAKER) (test code = 1431 pg/mL 211-911 H 774) FOLATE (BEAKER) (test code = 362) 17.00 ng/mL >=5.4 Plastic Installer ID - ADMINPOCT-GLUCOSE [id number] 06:32:00 Test Item Value Reference Range Interpretation Comments POC-GLUCOSE METER 79 mg/dL 70-110 : TESTED A T [address] (BEAKER) (test code = [address], [address]) [facility] [address]: Plastic Installer/Techni artemio ID = [id number] for Anahi Sherman TSH/Free T4 If [id number] 06:25:00 Test Item Value Reference Range Interpretation Comments TSH (test code = 21.210 See_Comment H [Automated 86402-5) message] The system which generated this result transmit merna reference range : 0.350 - 5.500 uIU/mL. The reference range was not used to interpret this result as normal/abnormal . ZIA (test code = ZIA) Plastic Installer ID - ADMIN Lab Interpretation Abnormal (test code = 18710-8) [facility] CenterFerritin2020-09-21 06:25:00 Test Item Value Reference Range Interpretation Comments Ferritin (test code = 595.00 ng/mL 10-291 H 2276-4) ZIA (test code = ZIA) Plastic Installer ID - ADMIN Lab Interpretation (test Abnormal code = 51625-5) [facility] CenterFERRITIN2020-09-21 06:25:00 Test Item Value Reference Range Interpretation Comments FERRITIN (BEAKER) (test code = 595.00 ng/mL 10.00-291.00 H 361) Plastic Installer ID - ADMINTSH/FREE T4 IF [id number] 06:25:00 Test Item Value Reference Range Interpretation Comments THYROID STIMULATING HORMONE 21.210 uIU/mL 0.350-5.500 H (BEAKER) (test code = 772) Plastic Installer ID - ADMINPT/[id number] 06:06:00 Test Item Value Reference Interpretation Comments Range Protime (test code = 13.5 See_Comment H [Autom ated 5902-2) message] The system which generated this result transmitted reference range : 9.3 - 12.0 sec. The reference range was not used to interpret this result as normal/abnormal . INR (test code = 1.25 See_Comment [Automated 7911-6) message] The system which generated this result transmitted reference range : <=5.90. The reference range was not used to interpret this result as normal/abnormal . PTT (test code = 38.2 See_Comment H [Automated 94690-8) message] The system which generated this result [...] Output) Lab Interpretation Abnormal (test code = 35838-8) [facility]00 Test Item Value Reference Range Interpretation Comments Fibrinogen (test code = 340 mg/dL 853-983 1092-7) ZIA (test code = ZIA) Final Information (Auto Output) Lab Interpretation (test Normal code = 22697-5) [facility]:06[facility]00 Test Item Value Reference Range Interpretation Comments FIBRINOGEN LEVEL (BEAKER) (test 340 mg/dL 200-400 code = 658) Final Information (Auto Output)PT/[id number] 06:06:00 Test Item Value Reference Range Interpretation [...] = 2502-3) ZIA (test code = ZIA) Plastic Installer ID - ADMIN Lab Interpretation (test Abnormal code = 71686-9) [facility] CenterIRON, TIBC, % SAT. (WITHOUT FERRITIN)2019-12-20 05:59:00 Test Item Value Reference Range Interpretation Comments IRON (BEAKER) (test code = 547) 92.0 ug/dL 45.0-170.0 TOTAL IRON BINDING CAPACITY 151 ug/dL 250-550 L (BEAKER) (test code = 769) IRON % SATURATION (2) (BEAKER) 61 % 20-55 H (test code = 2590) Plastic Installer ID - ADMINCOMPREHENSIVE METABOLIC [id number] 05:55:00 Test Item Value Reference Range Interpretation [...] S NOT APPLICABLE FOR DIALYSIS PATIEN TS. Plastic Installer ID - AFUZDT-uxsgl9376-94-21 05:46:00 Test Item Value Reference Range Interpretation Comments D-Dimer, Quant (test 1.09 mg/L <0.50 H code = 90341-8) ZIA (test code = ZIA) REGARDING D-DIMER RESULTS: The 98% NPV (Negative Predictive Value) for DVT/PE exclusion is 0.50 mg/L FEU as suggested by the netting weaver and as approved by the FDA.Final Information (Auto Output) Lab Interpretation (test Abnormal code = 82416-7) [facility] CenterD-[id number] 05:46:00 Test Item Value Reference Range Interpretation Comments D-DIMER QUANTITATIVE (BEAKER) (test 1.09 mg/L <0.50 H code = 671) REGARDING D-DIMER RESULTS: The 98% NPV (Negative Predictive Value) for DVT/PE exclusion is 0.50 mg/LFEU as suggested by the netting weaver and as approved by the FDA.Final Information (Auto Output)Reticulocyte [id number] 05:42:00 Test Item Value Reference Range Interpretation Comments % Retic (test code = 65628-8) 5.9 % 0.4-2.9 H Lab Interpretation (test code = Abnormal 05755-2) [facility] CenterRETICULOCYTE [id number] 05:42:00 Test Item Value Reference Range Interpretation Comments RETICULOCYTE COUNT PCT (BEAKER) (test 5.9 % 0.4-2.9 H code = 575) CBC W/PLT COUNT & AUTO [id number] 05:33:00 Test Item Value Reference Range Interpretation [...] U/L 107-206 ZIA (test code = ZIA) Plastic Installer ID - ADMIN Lab Interpretation (test Normal code = 72962-0) [facility] CenterLACTATE DEHYDROGENASE (LDH)2019-12-19 21:19:00 Test Item Value Reference Range Interpretation Comments LACTATE DEHYDROGENASE (BEAKER) (test 178 U/L 107-206 code = 635) Plastic Installer ID - ADMINPOCT-GLUCOSE [id number] 20:47:00 Test Item Value Reference Range Interpretation Comments POC-GLUCOSE METER 102 mg/dL 70-110 : TESTED A T [address] (BEAKER) (test code [facility] [address], = 1538) [facility] [address]: Plastic Installer/Techni artemio ID = [id number] for Anahi Sherman POCT-GLUCOSE [id number] 16:18:00 Test Item Value Reference Range Interpretation Comments POC-GLUCOSE METER 96 mg/dL 70-110 : TESTED A T [address] (BEAKER) (test code = [address], [address]) [place] [address]: Plastic Installer/Techni artemio ID = [id number] for Nalini Jean Baptiste Basic Metabolic [id number] 06:26:00 Test Item Value Reference Range Interpretation Comments Sodium (test code = 138 meq/L 447-449 2616-2) Potassium (test code = 3.9 meq/L 3.6-5.5 2823-3) Chloride (test code = 99 meq/L 98-106 2075-0) CO2 (test code = 30 meq/L 20-29 H 2028-9) BUN (test code = 47 mg/dL 10-26 H 3094-0) Creatinine (test code 3.04 mg/dL 0.5-1.2 H = 2160-0) Glucose (test code = 82 mg/dL 70-110 2345-7) Calcium (test code = 7.9 mg/dL 8.5-10.5 L 90731-5) EGFR (test code = 15 mL/min/1.73 [place] [address]-8) NOT ACCURATE CREATININE CLEARANCE IN PREDICTING GLOMERULAR FILTRATION RATE . ESTIMATED GFR I S NOT APPLICABLE FOR DIALYSIS PATIENTS. ZIA (test code = ZIA) Plastic Installer ID - ADMIN Lab Interpretation Abnormal (test code = 29454-8) [facility] CenterB[facility]AP[facility] METABOLIC [id number] 06:26:00 Test Item Value Reference Range Interpretation [...] S NOT APPLICABLE FOR DIALYSIS PATIEN TS. Plastic Installer ID - ADMINCBC W/PLT COUNT & AUTO [id number] 06:04:00 Test Item Value Reference Range Interpretation [...] PERCENT (BEAKER) (test code = 2801) POCT-GLUCOSE [id number] 05:35:00 Test Item Value Reference Range Interpretation Comments POC-GLUCOSE METER 85 mg/dL 70-110 : Notified RN/MD: TESTED ([facility] (test code = AT [facility] [address]) [place] [address]: Plastic Installer/Techni artemio ID = [id number] for Niraj , Zonia POCT-GLUCOSE [id number] 21:46:00 Test Item Value Reference Range Interpretation Comments POC-GLUCOSE METER 125 mg/dL 70-110 H : Notified RN[facility]MD: [facility] [address]) [place] [address]: Plastic Installer/Techni artemio ID = [id number] for Niraj , Zonia POCT-GLUCOSE [id number] 16:17:00 Test Item Value Reference Range Interpretation Comments POC-GLUCOSE METER 103 mg/dL 70-110 : [facility] (BEAKER) (test code [address] [facility], = 1538) [place] [address]: Plastic Installer/Techni artemio ID = [id number] for Nalini Jean Baptiste POCT-GLUCOSE [id number] 07:56:00 Test Item Value Reference Range Interpretation Comments POC-GLUCOSE METER 111 mg/dL 70-110 H : [facility] (BEAKER) (test code [address] [facility], = 1538) [place] [address]: Plastic Installer/Techni artemio ID = [id number] for Nalini Jean Baptiste POCT-GLUCOSE [id number] 06:25:00 Test Item Value Reference Range Interpretation Comments POC-GLUCOSE METER 57 mg/dL 70-110 L : TESTED A T [address] (BEAKER) (test code = [address], [address]) [place] [address]: Plastic Installer/Techni artemio ID = [id number] for Ashley n, Anne POCT-GLUCOSE [id number] 21:55:00 Test Item Value Reference Range Interpretation Comments POC-GLUCOSE METER 76 mg/dL 70-110 : TESTED A T [address] (BEAKER) (test code = [address], [address]) [place] [address]: Plastic Installer/Techni artemio ID = [id number] for Ashley n, Anne POCT-GLUCOSE [id number] 18:03:00 Test Item Value Reference Range Interpretation Comments POC-GLUCOSE METER 81 mg/dL 70-110 : TESTED A T [address] (BEAKER) (test code = [address], [address]) [place] [address]: Plastic Installer/Techni artemio ID = [id number] for Ericka Daniel POCT-GLUCOSE [id number] 12:33:00 Test Item Value Reference Range Interpretation Comments POC-GLUCOSE METER 73 mg/dL 70-110 : TESTED A T [address] (BEAKER) (test code = [address], [address]) [place] [address]: Plastic Installer/Techni artemio ID = [id number] for Marisela Bolton Hepatitis B surface [id number] 10:49:00 Test Item Value Reference Range Interpretation Comments Hep B S Ab (test code <8.0 See_Comment [Auto mated = 57985-2) message] The system which generated this result transmit merna reference range : <8.0 mIU/mL. e reference range was not used to interpret this result as normal/abnormal . ZIA (test code = ZIA) Plastic Installer ID - LEONIE F Lab Interpretation Normal (test code = 81210-2) [facility] CenterHEPATITIS B SURFACE [id number] 10:49:00 Test Item Value Reference Range Interpretation Comments HEPATITIS B SURFACE ANTIBODY < mIU/mL <8.0 (BEAKER) (test code = 647) Plastic Installer ID - LEONIE FHepatitis B core antibody, [id number] 10:43:00 Test Item Value Reference Range Interpretation Comments Hep B Core Total Ab Nonreactive Nonreactive (test code = 83184-0) ZIA (test code = ZIA) Plastic Installer ID Bijal Jay Lab Interpretation (test Normal code = 32560-2) [facility] [id number] 10:43:00 Test Item Value Reference Range Interpretation Comments Hepatitis C Ab (test Nonreactive Nonreactive code = 77348-2) ZIA (test code = ZIA) Plastic Installer ID Bijal Jay Lab Interpretation (test Normal code = 77466-1) [facility] C [id number] 10:43:00 Test Item Value Reference Range Interpretation Comments HEPATITIS C ANTIBODY (BEAKER) Nonreactive Nonreactive (test code = 367) Plastic Installer ID Bijal HADLEY FHEPATITIS B CORE ANTIBODY, [id number] 10:43:00 Test Item Value Reference Range Interpretation Comments HEPATITIS B CORE TOTAL ANTIBODY Nonreactive Nonreactive (BEAKER) (test code = 497) Plastic Installer ID Bijal HADLEY FPOCT-GLUCOSE [id number] 06:31:00 Test Item Value Reference Range Interpretation Comments POC-GLUCOSE METER 67 mg/dL 70-110 L : TESTED A T [address] (BEAKER) (test code = [address], 1538) [facility] [address]: Plastic Installer/Techni artemio ID = [id number] for Anne Busby COMPREHENSIVE METABOLIC [id number] 05:10:00 Test Item Value Reference Range Interpretation [...] S NOT APPLICABLE FOR DIALYSIS PATIEN TS. Plastic Installer ID - ADMINCBC W/PLT COUNT & AUTO [id number] 04:36:00 Test Item Value Reference Range Interpretation [...] PERCENT (BEAKER) (test code = 2801) POCT-GLUCOSE [id number] 21:14:00 Test Item Value Reference Range Interpretation Comments POC-GLUCOSE METER 79 mg/dL 70-110 : [facility] T [address] [facility] (test code = [address] [facility], 1538) [facility] 77 [address]: Plastic Installer/Techni artemio ID = [id number] for Anne Busby POCT-GLUCOSE [id number] 18:35:00 Test Item Value Reference Range Interpretation Comments POC-GLUCOSE METER 68 mg/dL 70-110 L : Notified RN/MD: TESTED (AKER) (test code = AT [address]LS [address]) [facility] [address]: Plastic Installer/Techni artemio ID = [id number] for Alondra Kelley SARS-COV2/RT-PCR ([facility])2019-12-16 17:53:00 Test Item Value Reference Range Interpretation Comments SARS-COV2/RT-PCR (test Negative Not Detected, Negative, code = 8421254) See external report for linked test SARS-COV-2 PERFORMING LAB [facility] JANET (test code = 1013381) Negative result for this test determines that [...] 564(g) of the Act.Fact Sheet for Healthcare Providers:https://www.[employer]idel.com/sites/default/files/product/documents/Fact_Shee l_MK_Doxdddjmj_Tlpx_DMCJ-NkP-5.pdfFact Sheet for Healthcare Patients:https://www.[employer]idel.com/sites/default/files/product/ documents/Chut_Tnhqs_Fjztkhmw_Ikny_BBJT-EqI-9.pdfPerforming Laboratory:[facility], [place] [address]Fwmkrhery B surface [id number] 16:57:00 Test Item Value Reference Range Interpretation Comments HBsAg Screen (test code = Nonreactive Nonreactive 5195-3) ZIA (test code = ZIA) Plastic Installer ID - ADMIN Lab Interpretation (test Normal code = 25383-1) [facility] CenterHEPATITIS B SURFACE [id number] 16:57:00 Test Item Value Reference Range Interpretation Comments HEPATITIS B SURFACE ANTIGEN (2) Nonreactive Nonreactive (BEAKER) (test code = 2585) Plastic Installer ID - ADMINANG, TUNNELED CATHETER [id number] 15:06:00Reason for Central Line/PICC?->Need for hemodialysis accessReason [...] the patient's medical record by the nurse. Housing Coordinator: Soto Arias M.D. Polysomnographer: none. Approach: Right internal jugular vein Estimated [...] needle into the right atrium. A 4 Indonesian micropuncture sheath was placed and a 0.035 wire was advanced into the IVC. A subcutaneous tunnel was created in the left anterior chest wall by blunt dissection. A 23 cm tip to cuff 15.5 Indonesian Duraflow 2 catheter was brought through the [...] Arias MDReport Verified Date/Time: 12/16/2019 15:06:45Reading Location: [facility] Radiology Reading Room IR Tunneled Catheter [id number] 15:06:00 Interface, External Ris In - 12/16/2019 [...] the patient's medical record by the nurse. Housing Coordinator: Soto Arias M.D. Ass istant: none. Approach: [...] A 23 cm tip to cuff 15.5 Indonesian Duraflow 2 catheter was brought through the [...] MDReport Verified Date/Time: 12/16/2019 15:06:45 Reading Location: [facility] Radiology Reading [facility] [id number] 14:59:00 Test Item Value Reference Range Interpretation Comments POC-GLUCOSE METER 70 mg/dL 70-110 : Notified RN/MD: TESTED (BEAKER) (test code = AT [facility] [address]) JAYNAJoe [facility] [address]: Plastic Installer/Techni artemio ID = [id number] for Alondra Kelley POCT-GLUCOSE [id number] 11:13:00 Test Item Value Reference Range Interpretation Comments POC-GLUCOSE METER 72 mg/dL 70-110 : Notified RN/MD: TESTED (ROBERT) (test code = AT [facility] L [address]) [facility] [address] Plastic Installer/Techni artemio ID = [id number] for Alondra Kelley RAD, CHEST, 1 VIEW, NON [id number] 09:20:00Reason for exam:->fallShould this be performed at [...] MDReport Verified Date/Time: 12/16/2019 09:20:06 Reading Location: [facility] Radiology Reading Room XR chest 1 view portable / [id number] 09:20:00Interface, External Ris In - 12/16/2019 9:22 [...] MDReport Verified Date/Time: 12/16/2019 09:20:06 Reading Location: [facility] Radiology Reading Room Electronically yeimi d by: SOTO ARIAS MD on 12/16/2019 09:20 [facility] POCT-GLUCOSE [id number] 06:03:00 Test Item Value Reference Range Interpretation Comments POC-GLUCOSE METER 74 mg/dL 70-110 : Notified RN/MD: TESTED (BEAKER) (test code = AT [facility] [address]) [facility] [address]: Plastic Installer/Techni artemio ID = [id number] for Zonia Healy BASIC METABOLIC [id number] 05:08:00 Test Item Value Reference Range Interpretation [...] S NOT APPLICABLE FOR DIALYSIS PATIEN TS. Plastic Installer ID - ADMINProthrombin time/[id number] 05:01:00 Test Item Value Reference Interpretation Comments [...] Output) Lab Interpretation Abnormal (test code = 28820-7) [facility] CenterPROTHROMBIN TIME/[id number] 05:01:00 Test Item Value Reference Range Interpretation [...] Information (Auto Output)CBC W/PLT COUNT & AUTO [id number] 04:46:00 Test Item Value Reference Range Interpretation [...] PERCENT (BEAKER) (test code = 2801) POCT-GLUCOSE [id number] 17:13:00 Test Item Value Reference Range Interpretation Comments POC-GLUCOSE METER 220 mg/dL 70-110 H TESTED AT [facility] 6720 (BEAKER) (test code = [place] 1538) [address] BASIC METABOLIC [id number] 15:47:00 Test Item Value Reference Range Interpretation [...] NOT APPLICABLE FOR DIALYSIS PATIEN TS. POCT-GLUCOSE [id number] 11:30:00 Test Item Value Reference Range Interpretation Comments POC-GLUCOSE METER 268 mg/dL 70-110 H TESTED AT [place] [address] ([facility] (test code = [facility] 1538) [address] POCT-GLUCOSE [id number] 07:08:00 Test Item Value Reference Range Interpretation Comments POC-GLUCOSE METER 208 mg/dL 70-110 H TESTED AT [place] [address] ([facility] (test code = [facility] 1538) [address] CALCIUM, [id number] 06:47:00 Test Item Value Reference Range Interpretation Comments CALCIUM IONIZED (BEAKER) (test 1.11 mmol/L 1.12-1.27 L code = 698) PH, BLOOD (BEAKER) (test code = 7.40 1810) BASIC METABOLIC [id number] 06:40:00 Test Item Value Reference Range Interpretation [...] S NOT APPLICABLE FOR DIALYSIS PATIEN TS. [id number] 06:33:00 Test Item Value Reference Range Interpretation Comments PHOSPHORUS (BEAKER) (test code = 5.1 mg/dL 2.3-4.7 H 604) [id number] 06:33:00 Test Item Value Reference Range Interpretation Comments MAGNESIUM (BEAKER) (test code = 2.0 mg/dL 1.6-2.6 627) LACTIC ACID, VENOUS, WHOLE [id number] 06:02:00 Test Item Value Reference Range Interpretation Comments LACTATE BLOOD VENOUS (2) (BEAKER) 0.8 mmol/L 0.5-2.2 (test code = 2872) Effective 08/02/2015: Units/Reference Range ChangeNew: 0.5-2.2 mmol/L Previous: 5-20 mg/dLCBC W/PLT COUNT & AUTO [id number] 05:54:00 Test Item Value Reference Range Interpretation [...] PERCENT (BEAKER) (test code = 2801) POCT-GLUCOSE [id number] 21:30:00 Test Item Value Reference Range Interpretation Comments POC-GLUCOSE METER 248 mg/dL 70-110 H TESTED AT [facility] 6720 (BEAKER) (test code = [place] 1538) [address] RAD, [id number] 21:22:00Reason for exam:->fall, tailbone painFINAL REPORT RAD, [...] MDReport Verified Date/Time: 09/04/2017 21:22:03 Reading Location: [facility] C013T [facility] Reading Room POCT-GLUCOSE [id number] 17:37:00 Test Item Value Reference Range Interpretation Comments POC-GLUCOSE METER 222 mg/dL 70-110 H TESTED AT [place] [address] ([facility] (test code = [facility] 1538) [address] POCT-GLUCOSE [id number] 13:55:00 Test Item Value Reference Range Interpretation Comments POC-GLUCOSE METER 194 mg/dL 70-110 H TESTED AT [place] [address] ([facility] (test code = [facility] 1538) [address] POCT-GLUCOSE [id number] 12:34:00 Test Item Value Reference Range Interpretation Comments POC-GLUCOSE METER 229 mg/dL 70-110 H TESTED AT [place] [address] ([facility] (test code = [facility] 1538) [address] POCT-GLUCOSE [id number] 08:00:00 Test Item Value Reference Range Interpretation Comments POC-GLUCOSE METER 159 mg/dL 70-110 H TESTED AT [place] [address] ([facility] (test code = [facility] 1538) [address] CALCIUM, [id number] 06:00:00 Test Item Value Reference Range Interpretation Comments CALCIUM IONIZED ([facility] (test 1.05 mmol/L 1.12-1.27 L code = 698) PH, BLOOD ([facility] (test code = 7.45 1810) [id number] 05:59:00 Test Item Value Reference Range Interpretation Comments PHOSPHORUS ([facility] (test code = 4.8 mg/dL 2.3-4.7 H 604) [id number] 05:59:00 Test Item Value Reference Range Interpretation Comments MAGNESIUM (BEAKER) (test code = 2.0 mg/dL 1.6-2.6 627) BASIC METABOLIC [id number] 05:59:00 Test Item Value Reference Range Interpretation [...] = 380) CBC W/PLT COUNT & AUTO [id number] 05:32:00 Test Item Value Reference Range Interpretation [...] PERCENT (BEAKER) (test code = 2801) POCT-GLUCOSE [id number] 20:36:00 Test Item Value Reference Range Interpretation Comments POC-GLUCOSE METER 211 mg/dL 70-110 H TESTED AT [facility] 6720 (BEAKER) (test code = [address] [place] 1538) [address] CREATININE, RANDOM [id number] 19:55:00 Test Item Value Reference Range Interpretation Comments CREATININE URINE (BEAKER) (test 16.1 mg/dL code = 375) Reference Range: No NormalsPROTEIN, RANDOM [id number] 19:55:00 Test Item Value Reference Range Interpretation Comments PROTEIN, URINE (BEAKER) (test code 102 mg/dL 0-14 H = 1569) POCT-GLUCOSE [id number] 18:04:00 Test Item Value Reference Range Interpretation Comments POC-GLUCOSE METER 177 mg/dL 70-110 H TESTED AT [place] [address] (BEAKER) (test code = [facility] 1538) [address] POCT-GLUCOSE [id number] 11:59:00 Test Item Value Reference Range Interpretation Comments POC-GLUCOSE METER 244 mg/dL 70-110 H TESTED AT [place] [address] (BEAKER) (test code = [facility] 1538) [address] POCT-GLUCOSE [id number] 07:53:00 Test Item Value Reference Range Interpretation Comments POC-GLUCOSE METER 160 mg/dL 70-110 H TESTED AT [place] [address] (BEAKER) (test code = [facility] 1538) [address] BASIC METABOLIC [id number] 05:29:00 Test Item Value Reference Range Interpretation [...] S NOT APPLICABLE FOR DIALYSIS PATIEN TS. [id number] 05:21:00 Test Item Value Reference Range Interpretation Comments MAGNESIUM (BEAKER) (test code = 2.1 mg/dL 1.6-2.6 627) HEPATIC FUNCTION [id number] 05:21:00 Test Item Value Reference Range Interpretation [...] code = 23 U/L 6-55 347) TROPONIN [id number] 05:18:00 Test Item Value Reference Range Interpretation [...] PERCENT (BEAKER) (test code = 2801) TROPONIN [id number] 23:40:00 Test Item Value Reference Range Interpretation [...] acidosis, acute neurological disease, and persistent tachyarrhythmia.POCT-GLUCOSE [id number] 22:51:00 Test Item Value Reference Range Interpretation Comments POC-GLUCOSE METER 214 mg/dL 70-110 H TESTED AT [facility] 6720 (BEAKER) (test code = [place] 1538) [address] RAD, CHEST, 1 VIEW, NON [id number] 21:42:00Reason for exam:->CHEST PAINShould this be performed at the bedside?->YesFINAL REPORT RAD, CHEST, 1 VIEW, NON DEPT INDICATION: CHEST PAIN COMPARISON: Chest x-ray 4 weeks ago TECHNIQUE: Single frontal view of the chest. IMPRESSION:Cardiomegaly.Mild pulmonary interstitial edema with a small right- sided effusion.No acute osseous abnormality. Signed: Dario Abraham MDReport Verified Date/Time: 09/02/2017 21:42:11 Reading Location: [address] Reading Room CREATININE, RANDOM [id number] 21:10:00 Test Item Value Reference Range Interpretation Comments CREATININE URINE (BEAKER) (test 35.5 mg/dL code = 375) Reference Range: No NormalsSODIUM, RANDOM [id number] 21:10:00 Test Item Value Reference Range Interpretation Comments SODIUM URINE (BEAKER) (test code = 80 meq/L 243) Reference Range: No NormalsURINALYSIS W/ [id number] 20:59:00 Test Item Value Reference Range Interpretation [...] code = 514) SOURCE(BEAKER) (test code = 2445) BASIC METABOLIC [id number] 16:49:00 Test Item Value Reference Range Interpretation [...] S NOT APPLICABLE FOR DIALYSIS PATIEN TS. [id number] 16:38:00 Test Item Value Reference Range Interpretation [...] (BEAKER) (test code = 700) BASIC METABOLIC [id number] 13:43:00 Test Item Value Reference Range Interpretation [...] NOT APPLICABLE FOR DIALYSIS PATIEN TS. POCT-GLUCOSE [id number] 12:44:00 Test Item Value Reference Range Interpretation Comments POC-GLUCOSE METER 283 mg/dL 70-110 H TESTED AT [facility] 6720 (BEAKER) (test code = JULIANO Osborne [place] 1538) [address] CALCIUM, [id number] 07:03:00 Test Item Value Reference Range Interpretation Comments CALCIUM IONIZED (BEAKER) (test 1.02 mmol/L 1.12-1.27 L code = 698) PH, BLOOD (BEAKER) (test code = 7.43 1810) [id number] 05:28:00 Test Item Value Reference Range Interpretation Comments PHOSPHORUS (BEAKER) (test code = 3.3 mg/dL 2.3-4.7 604) [id number] 05:28:00 Test Item Value Reference Range Interpretation Comments MAGNESIUM (BEAKER) (test code = 1.5 mg/dL 1.6-2.6 L 627) BASIC METABOLIC [id number] 05:28:00 Test Item Value Reference Range Interpretation [...] PATIEN TS. CBC W/PLT COUNT & AUTO [id number] 05:06:00 Test Item Value Reference Range Interpretation [...] PERCENT (BEAKER) (test code = 2801) POCT-GLUCOSE [id number] 21:08:00 Test Item Value Reference Range Interpretation Comments POC-GLUCOSE METER 202 mg/dL 70-110 H TESTED AT [facility] 67[facility] (test code = JULIANO [place] 1538) [address] POCT-GLUCOSE [id number] 16:50:00 Test Item Value Reference Range Interpretation Comments POC-GLUCOSE METER 287 mg/dL 70-110 [place] [address] ([place]AKER) (test code = JULIANO Osborne [facility] 1538) [address] POCT-GLUCOSE [id number] 12:21:00 Test Item Value Reference Range Interpretation Comments POC-GLUCOSE METER 213 mg/dL 70-110 H TESTED AT [place] [address] (BEAKER) (test code = JULIANO Osborne [facility] 1538) [address] POCT-GLUCOSE [id number] 08:28:00 Test Item Value Reference Range Interpretation Comments POC-GLUCOSE METER 178 mg/dL 70-110 H TESTED AT [place] [address] (BEAKER) ([facility] = [facility] 1538) [address] CALCIUM, [id number] 07:06:00 Test Item Value Reference Range Interpretation Comments CALCIUM IONIZED (BEAKER) (test 0.99 mmol/L 1.12-1.27 L code = 698) PH, BLOOD (BEAKER) (test code = 7.42 1810) [id number] 05:37:00 Test Item Value Reference Range Interpretation Comments PHOSPHORUS (BEAKER) (test code = 3.5 mg/dL 2.3-4.7 604) [id number] 05:37:00 Test Item Value Reference Range Interpretation Comments MAGNESIUM (BEAKER) (test code = 1.6 mg/dL 1.6-2.6 627) BASIC METABOLIC [id number] 05:37:00 Test Item Value Reference Range Interpretation [...] PATIEN TS. CBC W/PLT COUNT & AUTO [id number] 05:07:00 Test Item Value Reference Range Interpretation [...] EOSINOPHILS ABSOLUTE COUNT 0.26 K/ L 0.04-0.36 ([facility] (test code = 416) BASOPHILS ABSOLUTE COUNT ([facility] 0.04 K/ L 0.01-0.08 (test code = 417) IMMATURE GRANULOCYTES-RELATIVE 1 % 0-1 PERCENT ([facility] (test code = 2801) POCT-GLUCOSE [id number] 21:24:00 Test Item Value Reference Range Interpretation Comments POC-GLUCOSE METER 255 mg/dL 70-110 H TESTED AT [place] [address] ([facility] (test code = [facility] 1538) [address] POCT-GLUCOSE [id number] 17:11:00 Test Item Value Reference Range Interpretation Comments POC-GLUCOSE METER 244 mg/dL 70-110 H TESTED AT [place] [address] ([facility] (test code = [facility] 1538) [address] POCT-GLUCOSE [id number] 11:54:00 Test Item Value Reference Range Interpretation Comments POC-GLUCOSE METER 209 mg/dL 70-110 H TESTED AT [place] [address] ([facility] (test code = [facility] 1538) [address] POCT-GLUCOSE [id number] 08:15:00 Test Item Value Reference Range Interpretation Comments POC-GLUCOSE METER 132 mg/dL 70-110 H TESTED AT [place] [address] ([facility] (test code = [facility] 1538) [address] RAD, CHEST, 1 VIEW, NON [id number] 07:44:00Reason for exam:->edemaShould this be performed at the bedside?->YesFINAL REPORT Chest one view AP 08/07/2017 7:44 AM CLINICAL INDICATION: edema COMPARISON: 05/31/2017 IMPRESSION: Cardiomediastinal contours are stable. There is mild pulmonary edema,asymmetric to the right. There are trace bilateral pleural effusions, with bibasilar linear atelectasis. Sternotomy wires remain midline. Signed: Regan Cespedes Verified Date/Time: 08/07/2017 07:44:22 Reading Location: [facility] Reading Room [id number] 05:30:00 Test Item Value Reference Range Interpretation Comments FERRITIN (BEAKER) (test code = 361) 87 ng/mL 5-275 CBC W/PLT COUNT & AUTO [id number] 05:21:00 Test Item Value Reference Range Interpretation [...] % 20-55 L (test code = 2590) [id number] 05:11:00 Test Item Value Reference Range Interpretation Comments PHOSPHORUS (BEAKER) (test code = 3.6 mg/dL 2.3-4.7 604) [id number] 05:11:00 Test Item Value Reference Range Interpretation Comments MAGNESIUM (BEAKER) (test code = 2.0 mg/dL 1.6-2.6 627) BASIC METABOLIC [id number] 05:11:00 Test Item Value Reference Range Interpretation [...] H (BEAKER) (test code = 700) CALCIUM, [id number] 04:58:00 Test Item Value Reference Range Interpretation Comments CALCIUM IONIZED (BEAKER) (test 1.04 mmol/L 1.12-1.27 L code = 698) PH, BLOOD (BEAKER) (test code = 7.41 1810) RETICULOCYTE [id number] 04:51:00 Test Item Value Reference Range Interpretation Comments RETICULOCYTE COUNT PCT (BEAKER) (test 1.2 % 0.5-1.7 code = 575) POCT-GLUCOSE [id number] 20:49:00 Test Item Value Reference Range Interpretation Comments POC-GLUCOSE METER 202 mg/dL 70-110 H TESTED AT [facility] 6720 (BEAKER) (test code = [facility] 1538) [address] CREATININE, RANDOM [id number] 18:38:00 Test Item Value Reference Range Interpretation Comments CREATININE URINE (BEAKER) (test 56.3 mg/dL code = 375) Reference Range: No NormalsPROTEIN, RANDOM [id number] 18:38:00 Test Item Value Reference Range Interpretation Comments PROTEIN, URINE (BEAKER) (test code 189 mg/dL 0-14 H = 1569) URINALYSIS W/ [id number] 18:34:00 Test Item Value Reference Range Interpretation [...] 516) SOURCE(BEAKER) (test code = Urine, Voided 2580) POCT-GLUCOSE [id number] 17:38:00 Test Item Value Reference Range Interpretation Comments POC-GLUCOSE METER 143 mg/dL 70-110 H TESTED AT [place] [address] (BEAKER) (test code = [facility] 1538) [address] POCT-GLUCOSE [id number] 12:30:00 Test Item Value Reference Range Interpretation Comments POC-GLUCOSE METER 218 mg/dL 70-110 H TESTED AT [place] [address] (BEAKER) (test code = [facility] Dylon [facility] 1538) [address] POCT-GLUCOSE [id number] 08:00:00 Test Item Value Reference Range Interpretation Comments POC-GLUCOSE METER 134 mg/dL 70-110 H TESTED AT [place] [address] (BEAKER) (test code = [facility] Dylon [facility] 1538) [address] CBC W/PLT COUNT & AUTO [id number] 04:23:00 Test Item Value Reference Range Interpretation [...] (BEAKER) (test code = 2801) BASIC METABOLIC [id number] 04:13:00 Test Item Value Reference Range Interpretation [...] S NOT APPLICABLE FOR DIALYSIS PATIEN TS. [id number] 04:10:00 Test Item Value Reference Range Interpretation Comments PHOSPHORUS (BEAKER) (test code = 4.9 mg/dL 2.3-4.7 H 604) [id number] 04:10:00 Test Item Value Reference Range Interpretation Comments MAGNESIUM (BEAKER) (test code = 1.4 mg/dL 1.6-2.6 L 627) [id number] 04:08:00 Test Item Value Reference Range Interpretation Comments FIBRINOGEN LEVEL (BEAKER) (test 548 mg/dl 225-434 H code = 658) [id number] 04:08:00 Test Item Value Reference Range Interpretation Comments PARTIAL THROMBOPLASTIN TIME 37.7 seconds 22.5-36.0 H (BEAKER) (test code = 760) PROTHROMBIN [id number] 04:07:00 Test Item Value Reference Range Interpretation Comments PROTIME (BEAKER) (test code = 16.2 seconds 11.7-14.7 H 759) INR (BEAKER) (test code = 370) 1.3 <=5.9 RECOMMENDED COUMADIN/WARFARIN INR THERAPY RANGESSTANDARD DOSE: 2.0 - 3.0 Includes: PROPHYLAXIS forvenous thrombosis, systemic embolization; TREATMENT for venous thrombosis and/or pulmonary embolus.HIGH RISK: Target INR is 2.5-3.5 for patients with mechanical heart valves.[id number] 16:59:00 Test Item Value Reference Range Interpretation Comments ACTIVATED CLOTTING TIME 219 sec TEST ED AT [facility] 6720 [facility] (test code = [place]IANO [place]borne [place] [address]) [address] BASIC METABOLIC [id number] 14:25:00 Test Item Value Reference Range Interpretation [...] NOT APPLICABLE FOR DIALYSIS PATIEN TS. POCT-GLUCOSE [id number] 13:21:00 Test Item Value Reference Range Interpretation Comments POC-GLUCOSE METER 170 mg/dL 70-110 H TESTED AT [facility] 6720 (BEAKER) (test code = [place] 153) [address] POTASSIUM-STAT [id number] 13:20:00 Test Item Value Reference Range Interpretation Comments POTASSIUM (BEAKER) (test code = 4.2 meq/L 3.6-5.5 379) SODIUM NA-STAT [id number] 13:20:00 Test Item Value Reference Range Interpretation Comments SODIUM (BEAKER) (test code = 381) 133 meq/L 135-148 L HGB/HCT (H&H) - STAT [id number] 12:34:00 Test Item Value Reference Range Interpretation Comments HEMOGLOBIN (BEAKER) (test code = 10.8 g/dL 12.0-15.0 L 410) HEMATOCRIT (BEAKER) (test code = 32.0 % 36.0-45.0 L 411) POTASSIUM-STAT [id number] 08:15:00 Test Item Value Reference Range Interpretation Comments POTASSIUM (BEAKER) (test code = 4.1 meq/L 3.6-5.5 379) BLOOD GAS, [id number] 08:15:00 Test Item Value Reference Range Interpretation [...] code = 1819) 70.0 % SODIUM NA-STAT [id number] 08:15:00 Test Item Value Reference Range Interpretation Comments SODIUM (BEAKER) (test code = 381) 130 meq/L 135-148 L GLUCOSE-STAT [id number] 08:15:00 Test Item Value Reference Range Interpretation Comments GLUCOSE RANDOM (BEAKER) (test code 172 mg/dL 70-110 H = 652) HGB/HCT (H&H) - STAT [id number] 08:15:00 Test Item Value Reference Range Interpretation Comments HEMOGLOBIN (BEAKER) (test code = 8.8 g/dL 12.0-15.0 L 410) HEMATOCRIT (BEAKER) (test code = 26.0 % 36.0-45.0 L 411) BASIC METABOLIC [id number] 07:37:00 Test Item Value Reference Range Interpretation [...] PATIEN TS. CBC W/PLT COUNT & AUTO [id number] 07:20:00 Test Item Value Reference Range Interpretation [...] PERCENT (BEAKER) (test code = 2801) POCT-GLUCOSE [id number] 07:03:00 Test Item Value Reference Range Interpretation Comments POC-GLUCOSE METER 186 mg/dL 70-110 H TESTED AT [facility] 6720 (BEAKER) (test code = [place]IANO [place] 1538) [address] B-TYPE NATRIURETIC FACTOR (BNP)2017-06-10 12:44:00 Test Item Value Reference Range Interpretation Comments B-TYPE NATRIURETIC PEPTIDE 1264 pg/mL 0-100 H (BEAKER) (test code = 700) [id number] 12:36:00 Test Item Value Reference Range Interpretation Comments MAGNESIUM (BEAKER) (test code = 1.6 mg/dL 1.6-2.6 627) BASIC METABOLIC [id number] 12:36:00 Test Item Value Reference Range Interpretation [...] NOT APPLICABLE FOR DIALYSIS PATIEN TS. POCT-GLUCOSE [id number] 12:04:00 Test Item Value Reference Range Interpretation Comments POC-GLUCOSE METER 274 mg/dL 70-110 H TESTED AT [facility] 6720 (BEAKER) (test code = [facility] Dylon [place] 1538) [address] POCT-GLUCOSE [id number] 07:21:00 Test Item Value Reference Range Interpretation Comments POC-GLUCOSE METER 137 mg/dL 70-110 H TESTED AT [facility] 6720 (BEAKER) (test code = [facility] [place] 1538) [address] BASIC METABOLIC [id number] 05:10:00 Test Item Value Reference Range Interpretation [...] % 34.1-44.9 L 411) MEAN CORPUSCULAR VOLUME ([facility] 83.4 fL 79.4-94.8 (test code = 753) MEAN CORPUSCULAR HEMOGLOBIN 25.7 pg 25.6-32.2 (AKER) (test code = 751) MEAN CORPUSCULAR HEMOGLOBIN CONC 30.9 GM/DL 32.2-35.5 L ([facility] (test code = 752) RED CELL DISTRIBUTION WIDTH 15.2 % 11.7-14.4 H ([facility] (test code = 412) PLATELET COUNT ([facility] (test 320 K/CU MM 150-450 code = 756) MEAN PLATELET VOLUME ([facility] 9.5 fL 9.4-12.3 (test code = 754) NUCLEATED RED BLOOD CELLS 0 /100 WBC 0-0 ([facility] (test code = 413) POCT-GLUCOSE [id number] 21:23:00 Test Item Value Reference Range Interpretation Comments POC-GLUCOSE METER 240 mg/dL 70-110 H TESTED AT [place] [address] ([facility] (test code = [facility] 1538) [address] POCT-GLUCOSE [id number] 16:42:00 Test Item Value Reference Range Interpretation Comments POC-GLUCOSE METER 234 mg/dL 70-110 H TESTED AT [place] [address] ([facility] (test code = [facility] 1538) [address] POCT-GLUCOSE [id number] 13:22:00 Test Item Value Reference Range Interpretation Comments POC-GLUCOSE METER 166 mg/dL 70-110 H TESTED AT [place] [address] ([facility] (test code = [facility] 1538) [address] RAD, CHEST, 1 VIEW, NON [id number] 09:43:00Reason for exam:->s/p ACBShould this be performed [...] Ring MDReport Verified Date/Time: 05/31/2017 09:43:30 ReadingLocation: [facility] B1 C013X Ortho Consult Reading Room POCT-GLUCOSE [id number] 06:57:00 Test Item Value Reference Range Interpretation Comments POC-GLUCOSE METER 136 mg/dL 70-110 H TESTED AT [facility] 6720 (BEAKER) (test code = [place]IANO [place] 1538) [address] CALCIUM, [id number] 06:41:00 Test Item Value Reference Range Interpretation Comments CALCIUM IONIZED (BEAKER) (test 1.10 mmol/L 1.12-1.27 L code = 698) PH, BLOOD (BEAKER) (test code = 7.42 1810) [id number] 06:17:00 Test Item Value Reference Range Interpretation Comments PHOSPHORUS (BEAKER) (test code = 3.3 mg/dL 2.3-4.7 604) [id number] 06:17:00 Test Item Value Reference Range Interpretation Comments MAGNESIUM (BEAKER) (test code = 1.8 mg/dL 1.6-2.6 627) BASIC METABOLIC [id number] 06:17:00 Test Item Value Reference Range Interpretation [...] PATIEN TS. CBC W/PLT COUNT & AUTO [id number] 05:07:00 Test Item Value Reference Range Interpretation [...] EOSINOPHILS ABSOLUTE COUNT 0.11 K/ L 0.04-0.36 ([facility] (test code = 416) BASOPHILS ABSOLUTE COUNT ([facility] 0.05 K/ L 0.01-0.08 (test code = 417) IMMATURE GRANULOCYTES-RELATIVE 1 % 0-1 PERCENT ([facility] (test code = 2801) POCT-GLUCOSE [id number] 20:56:00 Test Item Value Reference Range Interpretation Comments POC-GLUCOSE METER 196 mg/dL 70-110 H TESTED AT [place] [address] ([facility] (test code = [facility] 1538) [address] POCT-GLUCOSE [id number] 16:42:00 Test Item Value Reference Range Interpretation Comments POC-GLUCOSE METER 196 mg/dL 70-110 H TESTED AT [place] [address] ([facility] (test code = [facility] 1538) [address] POCT-GLUCOSE [id number] 11:45:00 Test Item Value Reference Range Interpretation Comments POC-GLUCOSE METER 215 mg/dL 70-110 H TESTED AT [place] [address] ([facility] (test code = [facility] 1538) [address] RAD, CHEST, 1 VIEW, NON [id number] 11:15:00Reason for exam:->s/p ACBShould this be performed at the bedside?->YesFINAL REPORT Chest one view compared to May 28, 2017 Discussion: Airspace opacities are seen in both lower lung regions, probably atelectasis. Correlate clinically for infection. I could not exclude small effusions. No pneumothorax. Upper lungs clear. Signed: Jeannette Navaeport Verified Date/Time: 05/30/2017 11:15:07 Reading Location: [facility] Reading Room CALCIUM, [id number] 09:21:00 Test Item Value Reference Range Interpretation Comments CALCIUM IONIZED (BEAKER) (test 1.11 mmol/L 1.12-1.27 L code = 698) PH, BLOOD ([facility] (test code = 7.36 1810) BASIC METABOLIC [id number] 07:37:00 Test Item Value Reference Range Interpretation [...] S NOT APPLICABLE FOR DIALYSIS PATIEN TS. [id number] 07:28:00 Test Item Value Reference Range Interpretation Comments PHOSPHORUS (BEAKER) (test code = 3.8 mg/dL 2.3-4.7 604) [id number] 07:28:00 Test Item Value Reference Range Interpretation Comments MAGNESIUM (BEAKER) (test code = 1.9 mg/dL 1.6-2.6 627) CBC W/PLT COUNT & AUTO [id number] 07:26:00 Test Item Value Reference Range Interpretation [...] PERCENT (BEAKER) (test code = 2801) POCT-GLUCOSE [id number] 07:21:00 Test Item Value Reference Range Interpretation Comments POC-GLUCOSE METER 146 mg/dL 70-110 H TESTED AT [facility] 6720 [facility] (test code = [place]IANO [place] 1538) [address] POCT-GLUCOSE [id number] 22:02:00 Test Item Value Reference Range Interpretation Comments POC-GLUCOSE METER 201 mg/dL 70-110 H TESTED AT [facility] 6720 (BEAKER) (test code = [place]IANO [place] 1538) [address] POCT-GLUCOSE [id number] 18:27:00 Test Item Value Reference Range Interpretation Comments POC-GLUCOSE METER 240 mg/dL 70-110 H TESTED AT [facility] 6720 (BEAKER) (test code = JULIANO Osborne [facility] 1538) [address] POCT-GLUCOSE [id number] 12:13:00 Test Item Value Reference Range Interpretation Comments POC-GLUCOSE METER 193 mg/dL 70-110 H TESTED AT [facility] 6720 (BEAKER) (test code = JULIANO Osborne [place] 1538) [address] POCT-GLUCOSE [id number] 09:02:00 Test Item Value Reference Range Interpretation Comments POC-GLUCOSE METER 132 mg/dL 70-110 H TESTED AT [facility] 6720 (BEAKER) (test code = JULIANO Osborne [facility] 1538) [address] CALCIUM, [id number] 05:42:00 Test Item Value Reference Range Interpretation Comments CALCIUM IONIZED (BEAKER) (test 1.12 mmol/L 1.12-1.27 code = 698) PH, BLOOD (BEAKER) (test code = 7.34 1810) COMPREHENSIVE METABOLIC [id number] 05:33:00 Test Item Value Reference Range Interpretation [...] S NOT APPLICABLE FOR DIALYSIS PATIEN TS. [id number] 05:32:00 Test Item Value Reference Range Interpretation Comments PHOSPHORUS (BEAKER) (test code = 3.6 mg/dL 2.3-4.7 604) [id number] 05:32:00 Test Item Value Reference Range Interpretation Comments MAGNESIUM (BEAKER) (test code = 2.2 mg/dL 1.6-2.6 627) CBC W/PLT COUNT & AUTO [id number] 05:01:00 Test Item Value Reference Range Interpretation [...] PERCENT (BEAKER) (test code = 2801) POCT-GLUCOSE [id number] 21:04:00 Test Item Value Reference Range Interpretation Comments POC-GLUCOSE METER 165 mg/dL 70-110 H TESTED AT [facility] 67 ([facility] (test code = [facility] 1538) [address] POCT-GLUCOSE [id number] 17:30:00 Test Item Value Reference Range Interpretation Comments POC-GLUCOSE METER 236 mg/dL 70-110 H TESTED AT [facility] 6720 ([facility] (test code = [facility] 1538) [address] RAD, CHEST, 1 VIEW, NON [id number] 13:53:00Reason for exam:->assess for ill-defined opacityShould this [...] MDReport Verified Date/Time: 05/28/2017 13:53:03 Reading Location: [address] Radiology Reading Room POCT-GLUCOSE [id number] 11:53:00 Test Item Value Reference Range Interpretation Comments POC-GLUCOSE METER 215 mg/dL 70-110 H TESTED AT [place] [address] (BEAKER) (test code = [facility] 1538) [address] POCT-GLUCOSE [id number] 08:32:00 Test Item Value Reference Range Interpretation Comments POC-GLUCOSE METER 168 mg/dL 70-110 H TESTED AT [place] [address] [facility] (test code = [facility] 1538) [address] CALCIUM, [id number] 05:44:00 Test Item Value Reference Range Interpretation Comments CALCIUM IONIZED (BEAKER) (test 1.09 mmol/L 1.12-1.27 L code = 698) PH, BLOOD (BEAKER) (test code = 7.38 1810) [id number] 05:44:00 Test Item Value Reference Range Interpretation Comments PHOSPHORUS (BEAKER) (test code = 3.5 mg/dL 2.3-4.7 604) [id number] 05:44:00 Test Item Value Reference Range Interpretation Comments MAGNESIUM (BEAKER) (test code = 1.9 mg/dL 1.6-2.6 627) BASIC METABOLIC [id number] 05:44:00 Test Item Value Reference Range Interpretation [...] PATIEN TS. CBC W/PLT COUNT & AUTO [id number] 05:05:00 Test Item Value Reference Range Interpretation [...] LYMPHOCYTES ABSOLUTE COUNT 1.80 K/ L 1.18-3.74 ([facility] (test code = 414) MONOCYTES ABSOLUTE COUNT (BEAKER) 0.45 K/ L 0.24-0.36 H (test code = 415) EOSINOPHILS ABSOLUTE COUNT 0.25 K/ L 0.04-0.36 ([facility] (test code = 416) BASOPHILS ABSOLUTE COUNT ([facility] 0.05 K/ L 0.01-0.08 (test code = 417) IMMATURE GRANULOCYTES-RELATIVE 1 % 0-1 PERCENT ([facility] (test code = 2801) POCT-GLUCOSE [id number] 21:03:00 Test Item Value Reference Range Interpretation Comments POC-GLUCOSE METER 173 mg/dL 70-110 H TESTED AT [place] [address] ([facility] (test code = JULIANO Osborne [facility] 1538) [id number] 18:15:00 Test Item Value Reference Range Interpretation Comments ACTIVATED CLOTTING TIME 147 sec TEST ED AT [place] [address] ([facility] (test code = JULIANO Osborne [facility] 441) [id number] 18:15:00 Test Item Value Reference Range Interpretation Comments ACTIVATED CLOTTING TIME 246 sec TEST ED AT [place] [address] ([facility] (test code = JULIANO Osborne [place] [address]) [id number] POCT-GLUCOSE [id number] 12:39:00 Test Item Value Reference Range Interpretation Comments POC-GLUCOSE METER 219 mg/dL 70-110 H TESTED AT [place] [address] ([facility] (test code = JULIANO Osborne [facility] 1538) [address] RAD, CHEST, 1 VIEW, NON [id number] 10:11:00Reason for exam:->pl effusionShould this be performed at the bedside?->YesFINAL REPORT Chest one view compared to May 26 Discussion: There is cardiac prominence. Upper lungs are clear. Ill-defined basilar densities are similar probably atelectasis. No gross effusion or pneumothorax with bilateral chest tubes in place. Signed: Jeannette Nava Verified Date/Time: 05/27/2017 10:11:44 Reading Location: [facility] Radiology Reading Room POCT-GLUCOSE METER 2017-05-27 07:05:00 Test Item Value Reference Range Interpretation Comments POC-GLUCOSE METER 167 mg/dL 70-110 H TESTED AT [facility] 6720 (BEAKER) (test code = JULIANO [place] 1538) [address] CALCIUM, [id number] 06:20:00 Test Item Value Reference Range Interpretation Comments CALCIUM IONIZED (BEAKER) (test 0.98 mmol/L 1.12-1.27 L code = 698) PH, BLOOD (BEAKER) (test code = 7.50 1810) [id number] 04:56:00 Test Item Value Reference Range Interpretation Comments PHOSPHORUS (BEAKER) (test code = 2.6 mg/dL 2.3-4.7 604) [id number] 04:56:00 Test Item Value Reference Range Interpretation Comments MAGNESIUM (BEAKER) (test code = 2.0 mg/dL 1.6-2.6 627) BASIC METABOLIC [id number] 04:56:00 Test Item Value Reference Range Interpretation [...] PATIEN TS. CBC W/PLT COUNT & AUTO [id number] 04:36:00 Test Item Value Reference Range Interpretation [...] 417) IMMATURE GRANULOCYTES-RELATIVE 1 % 0-1 PERCENT ([facility] (test code = 2801) POCT-GLUCOSE [id number] 21:29:00 Test Item Value Reference Range Interpretation Comments POC-GLUCOSE METER 147 mg/dL 70-110 H TESTED AT [place] [address] ([facility] (test code = JULIANO Osborne [facility] 1538) [address] POCT-GLUCOSE [id number] 17:51:00 Test Item Value Reference Range Interpretation Comments POC-GLUCOSE METER 224 mg/dL 70-110 H TESTED AT [place] [address] ([facility] (test code = JULIANO Osborne [facility] 1538) [address] POCT-GLUCOSE [id number] 13:53:00 Test Item Value Reference Range Interpretation Comments POC-GLUCOSE METER 182 mg/dL 70-110 H TESTED AT [place] [address] ([facility] (test code = [facility] Dylon [facility] 1538) [address] RAD, CHEST, 1 VIEW, NON [id number] 08:44:00Reason for exam:->pl effusionShould this be performed [...] No other significant change. Signed: Olaf Ortega [facility] Verified Date/Time: 05/26/2017 08:44:25 Reading Location: [address] Radiology Reading Room POCT- GLUCOSE [id number] 07:43:00 Test Item Value Reference Range Interpretation Comments POC-GLUCOSE METER 113 mg/dL 70-110 H TESTED AT [place] [address] ([facility] (test code = [facility] Dylon [facility] 1538) [address] CALCIUM, [id number] 06:31:00 Test Item Value Reference Range Interpretation Comments CALCIUM IONIZED ([facility] (test 1.07 mmol/L 1.12-1.27 L code = 698) PH, BLOOD (BEAKER) (test code = 7.38 1810) [id number] 04:51:00 Test Item Value Reference Range Interpretation Comments PHOSPHORUS (BEAKER) (test code = 3.2 mg/dL 2.3-4.7 604) [id number] 04:51:00 Test Item Value Reference Range Interpretation Comments MAGNESIUM (BEAKER) (test code = 2.1 mg/dL 1.6-2.6 627) BASIC METABOLIC [id number] 04:51:00 Test Item Value Reference Range Interpretation [...] PATIEN TS. CBC W/PLT COUNT & AUTO [id number] 04:27:00 Test Item Value Reference Range Interpretation [...] PERCENT (BEAKER) (test code = 2801) POCT-GLUCOSE [id number] 23:48:00 Test Item Value Reference Range Interpretation Comments POC-GLUCOSE METER 123 mg/dL 70-110 H TESTED AT [facility] 6720 (BEAKER) (test code = JULIANO REYEZ 1538) [address] POCT-GLUCOSE [id number] 16:46:00 Test Item Value Reference Range Interpretation Comments POC-GLUCOSE METER 178 mg/dL 70-110 H TESTED AT [facility] 6720 (BEAKER) (test code = JULIANO [place] 1538) [address] BASIC METABOLIC [id number] 05:53:00 Test Item Value Reference Range Interpretation [...] S NOT APPLICABLE FOR DIALYSIS PATIEN TS. [id number] 05:52:00 Test Item Value Reference Range Interpretation Comments PHOSPHORUS (BEAKER) (test code = 4.2 mg/dL 2.3-4.7 604) [id number] 05:52:00 Test Item Value Reference Range Interpretation Comments MAGNESIUM (BEAKER) (test code = 2.3 mg/dL 1.6-2.6 627) CALCIUM, [id number] 05:27:00 Test Item Value Reference Range Interpretation Comments CALCIUM IONIZED (BEAKER) (test 1.12 mmol/L 1.12-1.27 code = 698) PH, BLOOD (BEAKER) (test code = 7.38 1810) CBC W/PLT COUNT & AUTO [id number] 05:07:00 Test Item Value Reference Range Interpretation [...] = 2801) RAD, CHEST, 1 VIEW, NON [id number] 04:45:00Reason for exam:->pl effusionShould this be performed at the bedside?->YesFINAL REPORT RAD, CHEST, 1 VIEW, NON DEPT INDICATION: pl effusion COMPARISON:Prior day's exam FINDINGS: Portable frontal view of the chest. IMPRESSION: Support Lines: Stable.Lungs and pleura: Unchanged airspace and pleural opacities. No pneumothorax.Heart and mediastinum: Stable contours. Stable surgical changes.Additional findings: None. Signed: JR Boswell Robert MDReport Verified Date/Time: 05/25/2017 04:45:08 Reading Location: [facility] C013Y CT Body Reading Room POCT-GLUCOSE [id number] 01:52:00 Test Item Value Reference Range Interpretation Comments POC-GLUCOSE METER 126 mg/dL 70-110 H TESTED AT [place] [address] ([facility] (test code = JULIANO Osborne [facility] 1538) [address] POCT-GLUCOSE [id number] 13:07:00 Test Item Value Reference Range Interpretation Comments POC-GLUCOSE METER 118 mg/dL 70-110 H TESTED AT [place] [address] ([facility] (test code = JULIANO Osborne [facility] 1538) [address] BRONCHIAL CULTURE + GRAM [id number] 11:35:00 Test Item Value Reference Range Interpretation Comments CULTURE ([facility] (test code = 1095) Amikacin (test code [...] <1+ gram (BEAKER) (test code = positive 544636) cocci in pairs GRAM STAIN RESULT 1+ gram (BEAKER) (test code = variable rods 679288) 1+ Normal respiratory todd presentRAD, CHEST, 1 VIEW, NON [id number] 06:50:00Reason for exam:->pl effusionShould this be performed at the bedside?->YesFINAL REPORT RAD, CHEST, 1 VIEW, NON DEPT INDICATION: pl effusion COMPARISON:Prior day's exam FINDINGS: Portable frontal view of the chest. IMPRESSION: Support Lines: Stable.Lungs and pleura: Unchanged airspace and pleural opacities. No pneumothorax.Heart and mediastinum: Stable contours. Stable surgical changes.Additional findings: None. Signed: JR Boswell Robert MDReport Verified Date/Time: 05/24/2017 06:50:08 Reading Location: [facility] C013Y CT Body Reading Room BASIC METABOLIC [id number] 04:19:00 Test Item Value Reference Range Interpretation [...] NOT APPLICABLE FOR DIALYSIS PATIEN TS. CALCIUM, [id number] 04:16:00 Test Item Value Reference Range Interpretation Comments CALCIUM IONIZED (BEAKER) (test 1.06 mmol/L 1.12-1.27 L code = 698) PH, BLOOD (BEAKER) (test code = 7.40 1810) [id number] 04:11:00 Test Item Value Reference Range Interpretation Comments PHOSPHORUS (BEAKER) (test code = 6.0 mg/dL 2.3-4.7 H 604) [id number] 04:11:00 Test Item Value Reference Range Interpretation Comments MAGNESIUM (BEAKER) (test code = 2.4 mg/dL 1.6-2.6 627) CBC W/PLT COUNT & AUTO [id number] 03:50:00 Test Item Value Reference Range Interpretation [...] PERCENT (BEAKER) (test code = 2801) POCT-GLUCOSE [id number] 20:45:00 Test Item Value Reference Range Interpretation Comments POC-GLUCOSE METER 143 mg/dL 70-110 H TESTED AT [place] [address] ([facility] (test code = [facility] 1538) [address] POCT-GLUCOSE [id number] 20:45:00 Test Item Value Reference Range Interpretation Comments POC-GLUCOSE METER 145 mg/dL 70-110 H TESTED AT [place] [address] ([facility] (test code = [facility] 1538) [address] [id number] 13:37:00 Test Item Value Reference Range Interpretation Comments PREALBUMIN (AKER) 10 mg/dL 14-45 L Specimen slightly (test code = 586) hemolyzed OXYGEN SATURATION, [id number] 12:31:00 Test Item Value Reference Range Interpretation Comments O2 SATURATION (MEASURED) (AKER) 94.5 % (test code = 1455) [id number] 11:02:00 Test Item Value Reference Range Interpretation Comments PREALBUMIN (BEAKER) (test code = 10 mg/dL 14-45 L 586) RAD, CHEST, 1 VIEW, NON [id number] 05:14:00while patient is intubated or has chest [...] MDReport Verified Date/Time: 05/23/2017 05:14:04 Reading Location: [address] Body Reading Room BASIC METABOLIC [id number] 03:48:00 Test Item Value Reference Range Interpretation [...] S NOT APPLICABLE FOR DIALYSIS PATIEN TS. [id number] 03:46:00 Test Item Value Reference Range Interpretation Comments MAGNESIUM (BEAKER) 2.4 mg/dL 1.6-2.6 Specimen slightly (test code = 627) hemolyzed [id number] 03:46:00 Test Item Value Reference Range Interpretation Comments PHOSPHORUS (BEAKER) 6.5 mg/dL 2.3-4.7 H Specimen slightly (test code = 604) hemolyzed CBC W/PLT COUNT & AUTO [id number] 03:26:00 Test Item Value Reference Range Interpretation [...] (BEAKER) (test code = 2801) BLOOD GAS, [id number] 03:18:00 Test Item Value Reference Range Interpretation [...] (test code = 1819) 36.0 % CALCIUM, [id number] 16:32:00 Test Item Value Reference Range Interpretation Comments CALCIUM IONIZED (BEAKER) (test 1.11 mmol/L 1.12-1.27 L code = 698) PH, BLOOD (BEAKER) (test code = 7.39 1810) BASIC METABOLIC [id number] 15:43:00 Test Item Value Reference Range Interpretation [...] NOT APPLICABLE FOR DIALYSIS PATIEN TS. POCT-GLUCOSE [id number] 12:53:00 Test Item Value Reference Range Interpretation Comments POC-GLUCOSE METER 118 mg/dL 70-110 H TESTED AT [place] [address] ([facility] (test code = [facility] 1538) [address] BLOOD GAS, [id number] 10:42:00 Test Item Value Reference Range Interpretation [...] (test code = 1819) 40.0 % POCT-GLUCOSE [id number] 06:46:00 Test Item Value Reference Range Interpretation Comments POC-GLUCOSE METER 106 mg/dL 70-110 TESTED AT [place] [address] ([facility] (test code = [facility] 1538) [address] RAD, CHEST, 1 VIEW, NON [id number] 05:05:00while patient is intubated or has chest [...] MDRepemily Verified Date/Time: 05/22/2017 05:05:00 Reading Location: [facility] B1 C013Y CT Body ReadingRoom BASIC METABOLIC [id number] 05:00:00 Test Item Value Reference Range Interpretation [...] S NOT APPLICABLE FOR DIALYSIS PATIEN TS. [id number] 04:41:00 Test Item Value Reference Range Interpretation Comments PHOSPHORUS (BEAKER) (test code = 6.4 mg/dL 2.3-4.7 H 604) [id number] 04:41:00 Test Item Value Reference Range Interpretation Comments MAGNESIUM (BEAKER) (test code = 2.6 mg/dL 1.6-2.6 627) CALCIUM, [id number] 04:26:00 Test Item Value Reference Range Interpretation Comments CALCIUM IONIZED (BEAKER) (test 1.09 mmol/L 1.12-1.27 L code = 698) PH, BLOOD (BEAKER) (test code = 7.40 1810) OXYGEN SATURATION, [id number] 04:25:00 Test Item Value Reference Range Interpretation Comments O2 SATURATION (MEASURED) (BEAKER) 77.0 % (test code = 1455) CBC W/PLT COUNT & AUTO [id number] 04:17:00 Test Item Value Reference Range Interpretation [...] code = 2801) LACTIC ACID, ARTERIAL, WHOLE [id number] 00:07:00 Test Item Value Reference Range Interpretation Comments LACTATE BLOOD 1.0 mmol/L 0.5-2.2 Specimen sligh tly ARTERIAL (2) (BEAKER) hemoly zed (test code = 2874) Effective 08/02/2015: Units/Reference Range ChangeNew: 0.5-2.2 mmol/L Previous: 5-20 mg/dLPOCT-GLUCOSE [id number] 23:47:00 Test Item Value Reference Range Interpretation Comments POC-GLUCOSE METER 180 mg/dL 70-110 H TESTED AT [facility] 6720 (BEAKER) (test code = MATTHIASAMANDA REYE[place] 1538) [address] BLOOD GAS, [id number] 23:46:00 Test Item Value Reference Range Interpretation [...] code = 1819) 100.0 % SODIUM NA-STAT [id number] 23:46:00 Test Item Value Reference Range Interpretation Comments SODIUM (BEAKER) (test code = 381) 134 meq/L 135-148 L GLUCOSE-STAT [id number] 23:46:00 Test Item Value Reference Range Interpretation Comments GLUCOSE RANDOM (BEAKER) (test code 119 mg/dL 70-110 H = 652) HGB/HCT (H&H) - STAT [id number] 23:46:00 Test Item Value Reference Range Interpretation Comments HEMOGLOBIN (BEAKER) (test code = 8.8 g/dL 12.0-15.0 L 410) HEMATOCRIT (BEAKER) (test code = 26.0 % 36.0-45.0 L 411) OXYGEN SATURATION, [id number] 23:45:00 Test Item Value Reference Range Interpretation Comments O2 SATURATION (MEASURED) (BEAKER) 68.1 % (test code = 1455) POTASSIUM-STAT [id number] 23:45:00 Test Item Value Reference Range Interpretation Comments POTASSIUM (BEAKER) (test code = 5.5 meq/L 3.6-5.5 379) POCT-GLUCOSE [id number] 20:58:00 Test Item Value Reference Range Interpretation Comments POC-GLUCOSE METER 133 mg/dL 70-110 H TESTED AT [facility] 6720 [facility] (test code = JULIANO [place] 1538) [address] POCT-GLUCOSE [id number] 17:58:00 Test Item Value Reference Range Interpretation Comments POC-GLUCOSE METER 210 mg/dL 70-110 H TESTED AT [facility] 6720 [facility] (test code = JULIANO [place] 1538) [address] POCT-GLUCOSE [id number] 17:58:00 Test Item Value Reference Range Interpretation Comments POC-GLUCOSE METER 211 mg/dL 70-110 H TESTED AT [facility] 6720 [facility] (test code = JULIANO [place] 1538) [address] POCT-GLUCOSE [id number] 17:58:00 Test Item Value Reference Range Interpretation Comments POC-GLUCOSE METER 232 mg/dL 70-110 H TESTED AT [facility] 6720 [facility] (test code = JULIANO [place] 1538) [address] POCT-GLUCOSE [id number] 17:58:00 Test Item Value Reference Range Interpretation Comments POC-GLUCOSE METER 262 mg/dL 70-110 H TESTED AT [place] [address] (BEAKER) (test code = [facility] 1538) [address] BLOOD GAS, [id number] 17:01:00 Test Item Value Reference Range Interpretation [...] (test code = 1819) 60.0 % POTASSIUM-STAT [id number] 17:00:00 Test Item Value Reference Range Interpretation Comments POTASSIUM (BEAKER) (test code = 4.8 meq/L 3.6-5.5 379) POCT-GLUCOSE [id number] 15:52:00 Test Item Value Reference Range Interpretation Comments POC-GLUCOSE METER 267 mg/dL 70-110 H TESTED AT [place] [address] (BEAKER) (test code = [facility] 1538) [address] POCT-GLUCOSE [id number] 14:42:00 Test Item Value Reference Range Interpretation Comments POC-GLUCOSE METER 231 mg/dL 70-110 H TESTED AT [place] [address] (BEAKER) (test code = [facility] 1538) [address] BODY FLUID CELL COUNT WITH [id number] 14:41:00 Test Item Value Reference Range Interpretation [...] Tube (test code = 2873) BASIC METABOLIC [id number] 14:11:00 Test Item Value Reference Range Interpretation [...] S NOT APPLICABLE FOR DIALYSIS PATIEN TS. [id number] 14:08:00 Test Item Value Reference Range Interpretation Comments PHOSPHORUS (BEAKER) (test code = 7.2 mg/dL 2.3-4.7 H 604) [id number] 14:08:00 Test Item Value Reference Range Interpretation Comments MAGNESIUM (BEAKER) (test code = 2.6 mg/dL 1.6-2.6 627) POCT-GLUCOSE [id number] 12:49:00 Test Item Value Reference Range Interpretation Comments POC-GLUCOSE METER 224 mg/dL 70-110 H TESTED AT [facility] 6720 (BEAKER) (test code = JULIANO [place]YE[place] 1538) [address] POCT-GLUCOSE [id number] 12:49:00 Test Item Value Reference Range Interpretation Comments POC-GLUCOSE METER 248 mg/dL 70-110 H TESTED AT [facility] 6720 (BEAKER) (test code = JULIANO [place] 1538) [address] RAD, CHEST, 1 VIEW, NON [id number] 12:32:00Reason for exam:->re-intubationShould this be performed at [...] pneumothorax is grossly unchanged. Signed: [facility] White [facility] Verified Date/Time: 05/21/2017 12:32:08 Reading Location: [facility] Radiology Reading Room POTASSIUM-STAT [id number] 12:28:00 Test Item Value Reference Range Interpretation Comments POTASSIUM (BEAKER) (test code = 5.5 meq/L 3.6-5.5 379) BLOOD GAS, [id number] 12:28:00 Test Item Value Reference Range Interpretation [...] code = 1819) 100.0 % BLOOD GAS, [id number] 10:53:00 Test Item Value Reference Range Interpretation [...] 36.0 % RAD, CHEST, 1 VIEW, NON [id number] 08:46:00while patient is intubated or has chest [...] MDReport Verified Date/Time: 05/21/2017 08:46:27 Reading Location: [facility] Radiology Reading Room BLOOD GAS, [id number] 05:41:00 Test Item Value Reference Range Interpretation [...] (BEAKER) (test code = 1819) 40 CALCIUM, [id number] 04:35:00 Test Item Value Reference Range Interpretation Comments CALCIUM IONIZED (BEAKER) (test 1.13 mmol/L 1.12-1.27 code = 698) PH, BLOOD (BEAKER) (test code = 7.32 1810) BLOOD GAS, [id number] 04:28:00 Test Item Value Reference Range Interpretation [...] (BEAKER) (test code = 1819) 40.0 % [id number] 04:20:00 Test Item Value Reference Range Interpretation Comments PHOSPHORUS (BEAKER) (test code = 6.2 mg/dL 2.3-4.7 H 604) [id number] 04:20:00 Test Item Value Reference Range Interpretation Comments MAGNESIUM (BEAKER) (test code = 2.4 mg/dL 1.6-2.6 627) HEPATIC FUNCTION [id number] 04:20:00 Test Item Value Reference Range Interpretation [...] = 11 U/L 6-55 347) BASIC METABOLIC [id number] 04:20:00 Test Item Value Reference Range Interpretation [...] APPLICABLE FOR DIALYSIS PATIEN TS. OXYGEN SATURATION, [id number] 04:18:00 Test Item Value Reference Range Interpretation Comments O2 SATURATION (MEASURED) (BEAKER) 68.0 % (test code = 1455) LACTIC ACID, ARTERIAL, WHOLE [id number] 04:12:00 Test Item Value Reference Range Interpretation Comments LACTATE BLOOD ARTERIAL (2) 1.0 mmol/L 0.5-2.2 (BEAKER) (test code = 2874) Effective 08/02/2015: Units/Reference Range ChangeNew: 0.5-2.2 mmol/L Previous: 5-20 mg/dLCBC W/PLT COUNT & AUTO [id number] 04:00:00 Test Item Value Reference Range Interpretation [...] (BEAKER) (test code = 2801) BLOOD GAS, [id number] 00:06:00 Test Item Value Reference Range Interpretation [...] (BEAKER) (test code = 1819) 40.0 % [id number] 18:55:00 Test Item Value Reference Range Interpretation Comments PHOSPHORUS (BEAKER) (test code = 4.8 mg/dL 2.3-4.7 H 604) [id number] 18:55:00 Test Item Value Reference Range Interpretation Comments MAGNESIUM (BEAKER) (test code = 2.3 mg/dL 1.6-2.6 627) BASIC METABOLIC [id number] 18:55:00 Test Item Value Reference Range Interpretation [...] DIALYSIS PATIEN TS. LACTIC ACID, ARTERIAL, WHOLE [id number] 18:53:00 Test Item Value Reference Range Interpretation Comments LACTATE BLOOD 0.9 mmol/L 0.5-2.2 Specimen sligh tly ARTERIAL (2) (BEAKER) hemoly zed (test code = 2874) Effective 08/02/2015: Units/Reference Range ChangeNew: 0.5-2.2 mmol/L Previous: 5-20 mg/dLRAD, CHEST, 1 VIEW, NON [id number] 18:44:00Reason for exam:- >postop cardiacShould this be [...] MDReport Verified Date/Time: 05/20/2017 18:44:30 Reading Location: [facility] B1 C013W Consult Reading Room Electronically signed by: MIGUEL BHAKTA M.D. on05/20/2017 06:44 PMCBC W/PLT COUNT & AUTO [id number] 18:38:00 Test Item Value Reference Range Interpretation [...] (BEAKER) (test code = 2801) OXYGEN SATURATION, [id number] 18:36:00 Test Item Value Reference Range Interpretation Comments O2 SATURATION (MEASURED) (BEAKER) 72.5 % (test code = 1455) From distal port of IJ central venous catheterSODIUM NA-STAT [id number] 18:30:00 Test Item Value Reference Range Interpretation Comments SODIUM (BEAKER) (test code = 381) 132 meq/L 135-148 L HGB/HCT (H&H) - STAT [id number] 18:30:00 Test Item Value Reference Range Interpretation Comments HEMOGLOBIN (BEAKER) (test code = 9.4 g/dL 12.0-15.0 L 410) HEMATOCRIT (BEAKER) (test code = 28.0 % 36.0-45.0 L 411) GLUCOSE-STAT [id number] 18:30:00 Test Item Value Reference Range Interpretation Comments GLUCOSE RANDOM (BEAKER) (test code 159 mg/dL 70-110 H = 652) BLOOD GAS, [id number] 18:30:00 Test Item Value Reference Range Interpretation [...] (test code = 1819) 60.0 % CALCIUM, [id number] 18:30:00 Test Item Value Reference Range Interpretation Comments CALCIUM IONIZED (BEAKER) (test 0.94 mmol/L 1.12-1.27 L code = 698) PH, BLOOD (BEAKER) (test code = 7.34 1810) POTASSIUM-STAT [id number] 18:28:00 Test Item Value Reference Range Interpretation [...] (test 0.0 % 0.0-5.0 code = 1414) [id number] 17:53:00 Test Item Value Reference Range Interpretation Comments ACTIVATED CLOTTING TIME 103 sec TEST ED AT [place] [address] ([facility] (test code = MAT[place]ASAMANDA [place] 441) [address] [id number] 17:53:00 Test Item Value Reference Range Interpretation Comments ACTIVATED CLOTTING TIME 466 sec TEST ED AT [place] [address] ([facility] (test code = [place]ASAMANDA [place] 441) [address] [id number] 17:53:00 Test Item Value Reference Range Interpretation Comments ACTIVATED CLOTTING TIME 543 sec TEST ED AT [place] [address] ([facility] (test code = MAT[place]ASAMANDA [place] 441) [address] [id number] 17:53:00 Test Item Value Reference Range Interpretation Comments ACTIVATED CLOTTING TIME 549 sec TEST ED AT [place] [address] ([facility] (test code = MATTHIASAMANDA Osborne [place] 441) [address] [id number] 17:53:00 Test Item Value Reference Range Interpretation Comments ACTIVATED CLOTTING TIME 632 sec TEST ED AT [place] [address] ([facility] (test code = [place]ASAMANDA [place] 441) [address] [id number] 17:53:00 Test Item Value Reference Range Interpretation Comments ACTIVATED CLOTTING TIME 494 sec TEST ED AT [place] [address] ([facility] (test code = JULIANO Osborne [place] 441) [address] [id number] 17:53:00 Test Item Value Reference Range Interpretation Comments ACTIVATED CLOTTING TIME 587 sec TEST ED AT [place] [address] ([facility] (test code = JULIANO Osborne [place] [address]) [address] [id number] 17:53:00 Test Item Value Reference Range Interpretation Comments ACTIVATED CLOTTING TIME 626 sec TEST ED AT [place] [address] ([facility] (test code = JULIANO Osborne [place] [address]) [id number] 17:52:00 Test Item Value Reference Range Interpretation Comments ACTIVATED CLOTTING TIME 808 sec TEST ED AT [place] [address] ([facility] (test code = JULIANO Osborne [place] [address]) [id number] 16:54:00 Test Item Value Reference Range Interpretation Comments PARTIAL THROMBOPLASTIN TIME 40.2 seconds 22.5-36.0 H ([facility] (test code = 760) [id number] 16:53:00 Test Item Value Reference Range Interpretation Comments FIBRINOGEN LEVEL ([facility] (test 306 mg/dl 225-434 code = 658) PROTHROMBIN [id number] 16:50:00 Test Item Value Reference Range Interpretation Comments PROTIME ([facility] (test code = 19.6 seconds 11.7-14.7 H 759) INR ([facility] (test code = 370) 1.7 <=5.9 RECOMMENDED COUMADIN/WARFARIN INR THERAPY RANGESSTANDARD DOSE: 2.0 - 3.0 Includes: PROPHYLAXIS forvenous thrombosis, systemic embolization; TREATMENT for venous thrombosis and/or pulmonary embolus.HIGH RISK: Target INR is 2.5-3.5 for patients with mechanical heart valves.PLATELET [id number] 16:45:00 Test Item Value Reference Range Interpretation Comments PLATELET COUNT ([facility] (test 136 K/CU MM 150-450 L code = 756) POTASSIUM-STAT [id number] 16:15:00 Test Item Value Reference Range Interpretation Comments POTASSIUM ([facility] (test code = 4.9 meq/L 3.6-5.5 379) BLOOD GAS, [id number] 16:15:00 Test Item Value Reference Range Interpretation [...] code = 1819) 100.0 % SODIUM NA-STAT [id number] 16:15:00 Test Item Value Reference Range Interpretation Comments SODIUM (BEAKER) (test code = 381) 131 meq/L 135-148 L GLUCOSE-STAT [id number] 16:15:00 Test Item Value Reference Range Interpretation Comments GLUCOSE RANDOM (BEAKER) (test code 198 mg/dL 70-110 H = 652) HGB/HCT (H&H) - STAT [id number] 16:15:00 Test Item Value Reference Range Interpretation Comments HEMOGLOBIN (BEAKER) (test code = 7.5 g/dL 12.0-15.0 L 410) HEMATOCRIT (BEAKER) (test code = 22.0 % 36.0-45.0 L 411) CALCIUM, [id number] 16:14:00 Test Item Value Reference Range Interpretation Comments CALCIUM IONIZED (BEAKER) (test 0.91 mmol/L 1.12-1.27 L code = 698) PH, BLOOD (BEAKER) (test code = 7.39 1810) BLOOD GAS, [id number] 15:39:00 Test Item Value Reference Range Interpretation [...] code = 1819) 70.0 % SODIUM NA-STAT [id number] 15:39:00 Test Item Value Reference Range Interpretation Comments SODIUM (BEAKER) (test code = 381) 131 meq/L 135-148 L GLUCOSE-STAT [id number] 15:39:00 Test Item Value Reference Range Interpretation Comments GLUCOSE RANDOM (BEAKER) (test code 186 mg/dL 70-110 H = 652) HGB/HCT (H&H) - STAT [id number] 15:39:00 Test Item Value Reference Range Interpretation Comments HEMOGLOBIN (BEAKER) (test code = 7.5 g/dL 12.0-15.0 L 410) HEMATOCRIT (BEAKER) (test code = 22.0 % 36.0-45.0 L 411) POTASSIUM-STAT [id number] 15:38:00 Test Item Value Reference Range Interpretation Comments POTASSIUM (BEAKER) (test code = 5.3 meq/L 3.6-5.5 379) BLOOD GAS, [id number] 15:24:00 Test Item Value Reference Range Interpretation [...] code = 1819) 70.0 % SODIUM NA-STAT [id number] 15:24:00 Test Item Value Reference Range Interpretation Comments SODIUM (BEAKER) (test code = 381) 130 meq/L 135-148 L GLUCOSE-STAT [id number] 15:24:00 Test Item Value Reference Range Interpretation Comments GLUCOSE RANDOM (BEAKER) (test code 189 mg/dL 70-110 H = 652) HGB/HCT (H&H) - STAT [id number] 15:24:00 Test Item Value Reference Range Interpretation Comments HEMOGLOBIN (BEAKER) (test code = 6.7 g/dL 12.0-15.0 L 410) HEMATOCRIT (BEAKER) (test code = 20.0 % 36.0-45.0 L 411) POTASSIUM-STAT [id number] 15:23:00 Test Item Value Reference Range Interpretation Comments POTASSIUM (BEAKER) (test code = 5.4 meq/L 3.6-5.5 379) BLOOD GAS, [id number] 15:07:00 Test Item Value Reference Range Interpretation [...] code = 1819) 70.0 % SODIUM NA-STAT [id number] 15:07:00 Test Item Value Reference Range Interpretation Comments SODIUM (BEAKER) (test code = 381) 129 meq/L 135-148 L GLUCOSE-STAT [id number] 15:07:00 Test Item Value Reference Range Interpretation Comments GLUCOSE RANDOM (BEAKER) (test code 172 mg/dL 70-110 H = 652) HGB/HCT (H&H) - STAT [id number] 15:07:00 Test Item Value Reference Range Interpretation Comments HEMOGLOBIN (BEAKER) (test code = 7.1 g/dL 12.0-15.0 L 410) HEMATOCRIT (BEAKER) (test code = 21.0 % 36.0-45.0 L 411) POTASSIUM-STAT [id number] 15:04:00 Test Item Value Reference Range Interpretation Comments POTASSIUM (BEAKER) (test code = 5.0 meq/L 3.6-5.5 379) BLOOD GAS, [id number] 14:21:00 Test Item Value Reference Range Interpretation [...] code = 1819) 70.0 % SODIUM NA-STAT [id number] 14:21:00 Test Item Value Reference Range Interpretation Comments SODIUM (BEAKER) (test code = 381) 133 meq/L 135-148 L GLUCOSE-STAT [id number] 14:21:00 Test Item Value Reference Range Interpretation Comments GLUCOSE RANDOM (BEAKER) (test code 160 mg/dL 70-110 H = 652) HGB/HCT (H&H) - STAT [id number] 14:21:00 Test Item Value Reference Range Interpretation Comments HEMOGLOBIN (BEAKER) (test code = 7.5 g/dL 12.0-15.0 L 410) HEMATOCRIT (BEAKER) (test code = 22.0 % 36.0-45.0 L 411) POTASSIUM-STAT [id number] 14:20:00 Test Item Value Reference Range Interpretation Comments POTASSIUM (BEAKER) (test code = 4.7 meq/L 3.6-5.5 379) BLOOD GAS, [id number] 13:58:00 Test Item Value Reference Range Interpretation [...] code = 1819) 80.0 % SODIUM NA-STAT [id number] 13:58:00 Test Item Value Reference Range Interpretation Comments SODIUM (BEAKER) (test code = 381) 132 meq/L 135-148 L GLUCOSE-STAT [id number] 13:58:00 Test Item Value Reference Range Interpretation Comments GLUCOSE RANDOM (BEAKER) (test code 166 mg/dL 70-110 H = 652) HGB/HCT (H&H) - STAT [id number] 13:58:00 Test Item Value Reference Range Interpretation Comments HEMOGLOBIN (BEAKER) (test code = 7.5 g/dL 12.0-15.0 L 410) HEMATOCRIT (BEAKER) (test code = 22.0 % 36.0-45.0 L 411) POTASSIUM-STAT [id number] 13:57:00 Test Item Value Reference Range Interpretation Comments POTASSIUM (BEAKER) (test code = 4.7 meq/L 3.6-5.5 379) BLOOD GAS, [id number] 13:35:00 Test Item Value Reference Range Interpretation [...] (test code = 1819) 80.0 % GLUCOSE-STAT [id number] 13:35:00 Test Item Value Reference Range Interpretation Comments GLUCOSE RANDOM (BEAKER) (test code 130 mg/dL 70-110 H = 652) HGB/HCT (H&H) - STAT [id number] 13:35:00 Test Item Value Reference Range Interpretation Comments HEMOGLOBIN (BEAKER) (test code = 6.7 g/dL 12.0-15.0 L 410) HEMATOCRIT (BEAKER) (test code = 20.0 % 36.0-45.0 L 411) SODIUM NA-STAT [id number] 13:35:00 Test Item Value Reference Range Interpretation Comments SODIUM (BEAKER) (test code = 381) 133 meq/L 135-148 L POTASSIUM-STAT [id number] 13:34:00 Test Item Value Reference Range Interpretation Comments POTASSIUM (BEAKER) (test code = 4.2 meq/L 3.6-5.5 379) BLOOD GAS, [id number] 13:16:00 Test Item Value Reference Range Interpretation [...] code = 1819) 80.0 % SODIUM NA-STAT [id number] 13:16:00 Test Item Value Reference Range Interpretation Comments SODIUM (BEAKER) (test code = 381) 133 meq/L 135-148 L HGB/HCT (H&H) - STAT [id number] 13:16:00 Test Item Value Reference Range Interpretation Comments HEMOGLOBIN (BEAKER) (test code = 6.3 g/dL 12.0-15.0 L 410) HEMATOCRIT (BEAKER) (test code = 19.0 % 36.0-45.0 L 411) CALCIUM, [id number] 13:15:00 Test Item Value Reference Range Interpretation Comments CALCIUM IONIZED (BEAKER) (test 0.98 mmol/L 1.12-1.27 L code = 698) PH, BLOOD (BEAKER) (test code = 7.34 1810) BLOOD GAS, [id number] 13:15:00 Test Item Value Reference Range Interpretation [...] (test code = 1819) 80.0 % GLUCOSE-STAT [id number] 13:14:00 Test Item Value Reference Range Interpretation Comments GLUCOSE RANDOM (BEAKER) (test code = 92 mg/dL 70-110 652) POTASSIUM-STAT [id number] 13:14:00 Test Item Value Reference Range Interpretation Comments POTASSIUM (BEAKER) (test code = 3.9 meq/L 3.6-5.5 379) BLOOD GAS, [id number] 10:54:00 Test Item Value Reference Range Interpretation [...] 1819) 100.0 % HGB/HCT (H&H) - STAT [id number] 10:54:00 Test Item Value Reference Range Interpretation Comments HEMOGLOBIN (BEAKER) (test code = 9.3 g/dL 12.0-15.0 L 410) HEMATOCRIT (BEAKER) (test code = 27.0 % 36.0-45.0 L 411) SODIUM NA-STAT [id number] 10:54:00 Test Item Value Reference Range Interpretation Comments SODIUM (BEAKER) (test code = 381) 132 meq/L 135-148 L GLUCOSE-STAT [id number] 10:52:00 Test Item Value Reference Range Interpretation Comments GLUCOSE RANDOM (BEAKER) (test code = 94 mg/dL 70-110 652) POTASSIUM-STAT [id number] 10:52:00 Test Item Value Reference Range Interpretation Comments POTASSIUM (BEAKER) (test code = 4.0 meq/L 3.6-5.5 379) HEMOGLOBIN [id number] 09:50:00 Test Item Value Reference Range Interpretation Comments HEMOGLOBIN A1C (BEAKER) (test code = 10.6 % 4.3-6.1 H 368) PLATELET AGGREGATION: FUNCTION [id number] 08:27:00 Test Item Value Reference Range Interpretation Comments WEAK ADP 63 % 60-91 RESULT(BEAKER) (test code = 2135) PLATELET FUNCTION 60-100% indicates SCREEN INTERP (BEAKER) normal platelet (test code = 2173) function [id number] Toshia Post MD (BEAKER) (test code = (electronic signature) 1990) PLATELET COUNT AGG 198 K/CU MM 150-450 (BEAKER) (test code = 3347) for patients on clopidogrel in past two weeksPOCT-GLUCOSE [id number] 08:11:00 Test Item Value Reference Range Interpretation Comments POC-GLUCOSE METER 116 mg/dL 70-110 H TESTED AT [facility] 6720 (BEAKER) (test code = [place] 1538) [address] [id number] 07:10:00 Test Item Value Reference Range Interpretation Comments PHOSPHORUS (BEAKER) (test code = 4.5 mg/dL 2.3-4.7 604) [id number] 07:10:00 Test Item Value Reference Range Interpretation Comments MAGNESIUM (BEAKER) (test code = 2.1 mg/dL 1.6-2.6 627) BASIC METABOLIC [id number] 07:10:00 Test Item Value Reference Range Interpretation [...] = 700) CBC W/PLT COUNT & AUTO [id number] 06:46:00 Test Item Value Reference Range Interpretation [...] PERCENT (BEAKER) (test code = 2801) CALCIUM, [id number] 06:40:00 Test Item Value Reference Range Interpretation Comments CALCIUM IONIZED (BEAKER) (test 1.06 mmol/L 1.12-1.27 L code = 698) PH, BLOOD (BEAKER) (test code = 7.39 1810) POCT-GLUCOSE [id number] 23:22:00 Test Item Value Reference Range Interpretation Comments POC-GLUCOSE METER 165 mg/dL 70-110 H TESTED AT [facility] 6720 (BEAKER) (test code = [place] 1538) [address] URINE PROTEIN ELECTROPHORESIS, [id number] 18:02:00 Test Item Value Reference Range Interpretation Comments PROTEIN, URINE 305 mg/dL 0-14 H (BEAKER) (test code = 1569) ALBUMIN URINE ELP 70.9 % (BEAKER) (test code = 1018) GAMMA GLOBULIN URINE 29.1 % (BEAKER) (test code = 1015) UPEP, ID-438 ([facility] No monoclonal bands (test code = 2604) detected. [id number] Rocio Galindo MD ([facility] (test code = (electronic signature) 2600) PROTEIN ELECTROPHORESIS, [id number] 17:57:00 Test Item Value Reference Range Interpretation [...] all globulin fractions. No monoclonal bands detected. [id number] Rocio Galindo MD ([facility] (test code = (electronic signature) 3773) PROTEIN TOTAL SERUM, 5.5 gm/dL 6.0-8.3 L SPEP (BEAKER) (test code = 1660) POCT-GLUCOSE [id number] 17:15:00 Test Item Value Reference Range Interpretation Comments POC-GLUCOSE METER 209 mg/dL 70-110 H TESTED AT [facility] (test code = [place]ULIAN[place] Os[place] 1538) [address] BLOOD GAS, [id number] 15:54:00 Test Item Value Reference Range Interpretation [...] 36.0 % RAD, CHEST, 1 VIEW, NON [id number] 14:07:00Reason for exam:->SOB, hypoxemiaShould this be performed [...] Regan Cespedes Verified Date/Time: 05/19/2017 14:07:07 Reading Location:[facility] C013W Consult Reading Room POCT-GLUCOSE [id number] 11:26:00 Test Item Value Reference Range Interpretation Comments POC-GLUCOSE METER 262 mg/dL 70-110 H TESTED AT [facility] 6720 [facility] (test code = JULIANO Osborne [facility] 1538) [address] POCT-GLUCOSE [id number] 07:37:00 Test Item Value Reference Range Interpretation Comments POC-GLUCOSE METER 170 mg/dL 70-110 H TESTED AT [facility] 6720 (BEAKER) (test code = [place] 1538) [address] CALCIUM, [id number] 06:06:00 Test Item Value Reference Range Interpretation Comments CALCIUM IONIZED (BEAKER) (test 1.05 mmol/L 1.12-1.27 L code = 698) PH, BLOOD (BEAKER) (test code = 7.41 1810) [id number] 05:38:00 Test Item Value Reference Range Interpretation Comments PHOSPHORUS (BEAKER) (test code = 3.9 mg/dL 2.3-4.7 604) [id number] 05:38:00 Test Item Value Reference Range Interpretation Comments MAGNESIUM (BEAKER) (test code = 2.2 mg/dL 1.6-2.6 627) BASIC METABOLIC [id number] 05:38:00 Test Item Value Reference Range Interpretation [...] PATIEN TS. CBC W/PLT COUNT & AUTO [id number] 05:09:00 Test Item Value Reference Range Interpretation [...] PERCENT (BEAKER) (test code = 2801) POCT-GLUCOSE [id number] 22:08:00 Test Item Value Reference Range Interpretation Comments POC-GLUCOSE METER 263 mg/dL 70-110 H TESTED AT [place] [address] (BEAKER) (test code = JULIANO Osborne [facility] 1538) [address] POCT-GLUCOSE [id number] 17:20:00 Test Item Value Reference Range Interpretation Comments POC-GLUCOSE METER 233 mg/dL 70-110 H TESTED AT [place] [address] (BEAKER) (test code = JULIANO Osborne [facility] 1538) [address] POCT-GLUCOSE [id number] 08:28:00 Test Item Value Reference Range Interpretation Comments POC-GLUCOSE METER 154 mg/dL 70-110 H TESTED AT [place] [address] (BEAKER) (test code = [facility] Dylon [facility] 1538) [address] BASIC METABOLIC [id number] 06:41:00 Test Item Value Reference Range Interpretation [...] S NOT APPLICABLE FOR DIALYSIS PATIEN TS. [id number] 06:35:00 Test Item Value Reference Range Interpretation Comments PHOSPHORUS (BEAKER) (test code = 4.1 mg/dL 2.3-4.7 604) [id number] 06:35:00 Test Item Value Reference Range Interpretation Comments MAGNESIUM (BEAKER) (test code = 2.1 mg/dL 1.6-2.6 627) CALCIUM, [id number] 06:22:00 Test Item Value Reference Range Interpretation Comments CALCIUM IONIZED (BEAKER) (test 1.10 mmol/L 1.12-1.27 L code = 698) PH, BLOOD (BEAKER) (test code = 7.38 1810) CBC W/PLT COUNT & AUTO [id number] 06:04:00 Test Item Value Reference Range Interpretation [...] EOSINOPHILS ABSOLUTE COUNT 0.24 K/ L 0.04-0.36 ([facility] (test code = 416) BASOPHILS ABSOLUTE COUNT ([facility] 0.06 K/ L 0.01-0.08 (test code = 417) IMMATURE GRANULOCYTES-RELATIVE 0 % 0-1 PERCENT ([facility] (test code = 2801) POCT-GLUCOSE [id number] 03:44:00 Test Item Value Reference Range Interpretation Comments POC-GLUCOSE METER 220 mg/dL 70-110 H TESTED AT [place] [address] ([facility] (test code = [employer] [place] 1538) [address] POCT-GLUCOSE [id number] 18:27:00 Test Item Value Reference Range Interpretation Comments POC-GLUCOSE METER 256 mg/dL 70-110 H TESTED AT [place] [address] ([facility] (test code = [place] [address] 15[address]) [address] POCT-GLUCOSE [id number] 15:45:00 Test Item Value Reference Range Interpretation Comments POC-GLUCOSE METER 278 mg/dL 70-110 H TESTED AT [place] [address] ([facility] (test code = [place] [address] [place] 1538) [address] POCT-GLUCOSE [id number] 13:22:00 Test Item Value Reference Range Interpretation Comments POC-GLUCOSE METER 278 mg/dL 70-110 H TESTED AT [place] [address] ([facility] (test code = [employer] [place] 1538) [address] PLATELET AGGREGATION: FUNCTION [id number] 13:18:00 Test Item Value Reference Range Interpretation Comments WEAK ADP 66 % 60-91 RESULT([facility] (test code = 2135) PLATELET FUNCTION 60-100% indicates SCREEN INTERP ([facility] normal platelet (test code = 2173) function [id number] Rigoberto Duenas MD ([facility] (test code = (electronic signature) 0333) PLATELET COUNT AGG 204 K/CU MM 150-450 ([facility] (test code = 2656) POCT-GLUCOSE [id number] 08:27:00 Test Item Value Reference Range Interpretation Comments POC-GLUCOSE METER 189 mg/dL 70-110 H TESTED AT [place] [address] ([facility] (test code = [employer] [place] 1538) [address] CALCIUM, [id number] 06:12:00 Test Item Value Reference Range Interpretation Comments CALCIUM IONIZED (BEAKER) (test 1.07 mmol/L 1.12-1.27 L code = 698) PH, BLOOD (BEAKER) (test code = 7.36 1810) [id number] 05:43:00 Test Item Value Reference Range Interpretation Comments PHOSPHORUS (BEAKER) (test code = 3.6 mg/dL 2.3-4.7 604) [id number] 05:43:00 Test Item Value Reference Range Interpretation Comments MAGNESIUM (BEAKER) (test code = 2.1 mg/dL 1.6-2.6 627) BASIC METABOLIC [id number] 05:43:00 Test Item Value Reference Range Interpretation [...] PATIEN TS. CBC W/PLT COUNT & AUTO [id number] 05:05:00 Test Item Value Reference Range Interpretation [...] PERCENT (BEAKER) (test code = 2801) POCT-GLUCOSE [id number] 21:32:00 Test Item Value Reference Range Interpretation Comments POC-GLUCOSE METER 176 mg/dL 70-110 H TESTED AT [facility] 6720 (BEAKER) (test code = [place] 1538) [address] POCT-GLUCOSE [id number] 20:27:00 Test Item Value Reference Range Interpretation Comments POC-GLUCOSE METER 161 mg/dL 70-110 H TESTED AT [facility] 67[address] [facility] (test code = JULIANO Osborne [facility] 1538) [address] POCT-GLUCOSE [id number] 18:23:00 Test Item Value Reference Range Interpretation Comments POC-GLUCOSE METER 185 mg/dL 70-110 H [facility] AT [place] [address] [facility] (test code = [facility] 1538) [address] POCT-GLUCOSE [id number] 13:26:00 Test Item Value Reference Range Interpretation Comments POC-GLUCOSE METER 282 mg/dL 70-110 H TESTED AT [place] [address] ([facility] (test code = [facility] 1538) [address] URINE [id number] 10:12:00 Test Item Value Reference Range Interpretation Comments CULTURE (BEAKER) (test >100,000 col/mL skin code = 1095) todd POCT-GLUCOSE [id number] 09:01:00 Test Item Value Reference Range Interpretation Comments POC-GLUCOSE METER 268 mg/dL 70-110 H TESTED AT [place] [address] ([facility] (test code = [facility] 1538) [address] CALCIUM, [id number] 05:39:00 Test Item Value Reference Range Interpretation Comments CALCIUM IONIZED (BEAKER) (test 0.84 mmol/L 1.12-1.27 L code = 698) PH, BLOOD (BEAKER) (test code = 7.35 3820) BASIC METABOLIC [id number] 05:07:00 Test Item Value Reference Range Interpretation [...] S NOT APPLICABLE FOR DIALYSIS PATIEN TS. [id number] 05:06:00 Test Item Value Reference Range Interpretation Comments PHOSPHORUS (BEAKER) (test code = 3.2 mg/dL 2.3-4.7 604) [id number] 05:06:00 Test Item Value Reference Range Interpretation Comments MAGNESIUM (BEAKER) (test code = 2.3 mg/dL 1.6-2.6 627) CBC W/PLT COUNT & AUTO [id number] 04:42:00 Test Item Value Reference Range Interpretation [...] = 2801) RHEUMATOID FACTOR AB, REFLEX TO [id number] 01:52:00 Test Item Value Reference Range Interpretation Comments RHEUMATOID FACTOR (ROBERT) (test Negative code = 573) POCT-GLUCOSE [id number] 21:57:00 Test Item Value Reference Range Interpretation Comments POC-GLUCOSE METER 105 mg/dL 70-110 TESTED AT [facility] 67 [facility] (test code = JULIANO Osborne [place] [address]) [address] POCT-GLUCOSE [id number] 18:11:00 Test Item Value Reference Range Interpretation Comments POC-GLUCOSE METER 312 mg/dL 70-110 H Notified Dylon Austin MD/TESTED (ROBERT) (test code = AT [facility] [address] [place] [address]) [facility] [address] PET, CARDIAC PERFUSION MULTIPLE STUDIES, REST AND [id number] 16:28:00 Reason for exam:->pvcs, known cadFINAL REPORT PROCEDURE: Rest/Stress MYOCARDIAL PERFUSION PET with regadenoson\\XA9\\ CPT CODE: 92501 INDICATION: Defined extent and severity of known [...] is 23%. LVEF at stress is 36%. [place] CT images revealed a right pleural effusion [...] Whaley Verified Date/Time: 05/15/2017 16:28:12 Reading Location: [address] [facility] ReadingRoom RAD, CHEST, 1 VIEW, NON [id number] 15:56:00Reason for exam:->SOBShould this be performed at the bedside?->YesFINAL REPORT Comparison: 05/14/2017 TECHNIQUE: Single view of the chest FINDINGS: There is a small right pleural effusion with nonspecific airspace disease. This is unchanged. Left lung is grossly clear. Cardiac silhouette is enlarged. IMPRESSION: 1. No acute cardiopulmonary disease. Signed: Sixto Monk MDReport Verified Date/Time: 05/15/2017 15:56:39 Reading Location: [facility] Rad iology Reading Room POCT-GLUCOSE [id number] 12:54:00 Test Item Value Reference Range Interpretation Comments POC-GLUCOSE METER 308 mg/dL 70-110 H Notified Dylon Austin MD/NATHAN (ROBERT) (test code = AT [facility] 6720 [facility] 1538) [facility] [address] U/S, RENAL WITH [id number] 11:04:00Reason for exam:->tracy, htnShould this be performed [...] in the resistive indices throughout. Signed: [facility] Verified Date/Time: 05/15/2017 11:04:01 Reading Location: [address] Ultrasound Reading Room ANA TITER AND [id number] 10:57:00 Test Item Value Reference Range Interpretation Comments ROGER TITER (BEAKER) (test code = :160 1541) ROGER PATTERN (BEAKER) (test code = Speck[place] 1781) ANTI-NUCLEAR ANTIBODY (ROGER)2017-05-15 10:56:00 Test Item Value Reference Range Interpretation Comments ANTI-NUCLEAR ANTIBODY (ROGER) (BEAKER) Positive Negative A (test code = 418) CALCIUM, [id number] 06:00:00 Test Item Value Reference Range Interpretation Comments CALCIUM IONIZED (BEAKER) (test 1.07 mmol/L 1.12-1.27 L code = 698) PH, BLOOD (BEAKER) (test code = 7.28 1810) HEPATITIS PANEL, [id number] 05:01:00 Test Item Value Reference Range Interpretation Comments HEPATITIS A IGM ANTIBODY (BEAKER) Nonreactive Nonreactive (test code = 498) HEPATITIS B CORE IGM ANTIBODY Nonreactive Nonreactive (BEAKER) (test code = 645) HEPATITIS C ANTIBODY (BEAKER) Nonreactive Nonreactive (test code = 367) HEPATITIS B SURFACE ANTIGEN (2) Nonreactive Nonreactive (BEAKER) (test code = 2585) BASIC METABOLIC [id number] 04:48:00 Test Item Value Reference Range Interpretation [...] NOT APPLICABLE FOR DIALYSIS PATIEN TS. URIC [id number] 04:41:00 Test Item Value Reference Range Interpretation Comments URIC ACID (BEAKER) (test code = 10.3 mg/dL 2.6-7.2 H 773) [id number] 04:41:00 Test Item Value Reference Range Interpretation Comments MAGNESIUM (BEAKER) (test code = 2.0 mg/dL 1.6-2.6 627) [id number] 04:41:00 Test Item Value Reference Range Interpretation Comments PHOSPHORUS (BEAKER) (test code = 4.2 mg/dL 2.3-4.7 604) COMPLEMENT COMPONENT [id number] 04:38:00 Test Item Value Reference Range Interpretation Comments C4 COMPLEMENT (BEAKER) (test code = 28 mg/dL 15-57 394) COMPLEMENT COMPONENT [id number] 04:38:00 Test Item Value Reference Range Interpretation Comments C3 COMPLEMENT (BEAKER) (test code = 103 mg/dL 82-193 393) CBC W/PLT COUNT & AUTO [id number] 04:22:00 Test Item Value Reference Range Interpretation [...] EOSINOPHILS ABSOLUTE COUNT 0.21 K/ L 0.04-0.36 ([facility] (test code = 416) BASOPHILS ABSOLUTE COUNT ([facility] 0.06 K/ L 0.01-0.08 (test code = 417) IMMATURE GRANULOCYTES-RELATIVE 0 % 0-1 PERCENT ([facility] (test code = 2801) POCT-GLUCOSE [id number] 21:46:00 Test Item Value Reference Range Interpretation Comments POC-GLUCOSE METER 173 mg/dL 70-110 H TESTED AT [place] [address] ([facility] (test code = JULIANO Osborne [facility] 1538) [id number] POCT-GLUCOSE [id number] 21:46:00 Test Item Value Reference Range Interpretation Comments POC-GLUCOSE METER 154 mg/dL 70-110 H TESTED AT [place] [address] ([facility] (test code = [facility] Dylon [facility] 1538) [id number] POCT-GLUCOSE [id number] 18:17:00 Test Item Value Reference Range Interpretation Comments POC-GLUCOSE METER 175 mg/dL 70-110 H TESTED AT [place] [address] ([facility] (test code = [facility] 1538) [id number] RAD, CHEST, 1 VIEW, NON [id number] 14:56:00Reason for exam:->SOBShould this be performed at the bedside?->YesFINAL REPORT INDICATION: SOB COMPARISON: May 13, 2017 TECHNIQUE: Chest radiograph, single view, portable technique. FINDINGS / IMPRESSION: Enlarged heart shadow, small rightpleural effusion, and pulmonary venous congestion, again demonstrated. No pneumothorax or consolidation. Osseous structures unremarkable. Signed: Thania Dwyer MDReport Verified Date/Time: 05/14/2017 14:56:58 Reading Location: [facility] Mammo Reading Room POCT-GLUCOSE [id number] 12:18:00 Test Item Value Reference Range Interpretation Comments POC-GLUCOSE METER 313 mg/dL 70-110 H TESTED AT [place] [address] ([facility] (test code = JULIANO Osborne [facility] 1538) [address] HIV-1 ANTIGEN WITH HIV-1/2 [id number] 12:07:00 Test Item Value Reference Range Interpretation Comments HIV-1 ANTIGEN WITH HIV 1\\T\\2 Nonreactive Nonreactive ANTIBODY (2) (BEAKER) (test code = 2586) CALCIUM, [id number] 06:37:00 Test Item Value Reference Range Interpretation Comments CALCIUM IONIZED (BEAKER) (test 1.08 mmol/L 1.12-1.27 L code = 698) PH, BLOOD (BEAKER) (test code = 7.25 1810) BASIC METABOLIC [id number] 06:26:00 Test Item Value Reference Range Interpretation [...] pg/mL 0-100 H (test code = 700) [id number] 06:25:00 Test Item Value Reference Range Interpretation Comments PHOSPHORUS (BEAKER) (test code = 5.7 mg/dL 2.3-4.7 H 604) [id number] 06:25:00 Test Item Value Reference Range Interpretation Comments MAGNESIUM (BEAKER) (test code = 1.5 mg/dL 1.6-2.6 L 627) CBC W/PLT COUNT & AUTO [id number] 06:07:00 Test Item Value Reference Range Interpretation [...] PERCENT (BEAKER) (test code = 2801) POCT-GLUCOSE [id number] 22:38:00 Test Item Value Reference Range Interpretation Comments POC-GLUCOSE METER 262 mg/dL 70-110 H TESTED AT [facility] 6720 (BEAKER) (test code = JULIANO [place] 1538) [address] PROTEIN, RANDOM [id number] 22:18:00 Test Item Value Reference Range Interpretation Comments PROTEIN, URINE (BEAKER) (test code 641 mg/dL 0-14 H = 1569) CREATININE, RANDOM [id number] 22:07:00 Test Item Value Reference Range Interpretation Comments CREATININE URINE (BEAKER) (test 124.9 mg/dL code = 375) Reference Range: No NormalsURINALYSIS W/ [id number] 22:03:00 Test Item Value Reference Range Interpretation [...] 1585) SOURCE(BEAKER) (test code = Urine, Voided 8618) [id number] 19:49:00 Test Item Value Reference Range Interpretation Comments SODIUM (BEAKER) (test 136 meq/L 136-145 code = 381) POTASSIUM (BEAKER) 5.1 meq/L 3.5-5.1 Specimen slightly (test code = 379) hemolyzed CHLORIDE (BEAKER) 104 meq/L 98-107 (test code = 382) CO2 (BEAKER) (test 25 meq/L 22-29 code = 355) Call if K > 5POCT-GLUCOSE [id number] 11:37:00 Test Item Value Reference Range Interpretation Comments POC-GLUCOSE METER 293 mg/dL 70-110 H TESTED AT [place] [address] ([facility] (test code = JULIANO Osborne [facility] 1538) [address] RAD, CHEST, 1 VIEW, NON [id number] 10:22:00Reason for exam:->SOBShould this be performed at the bedside?->YesFINAL REPORT Chest one view Discussion: There is cardiomegaly and interstitial congestion. A small right-sided effusion is noted. No pneumothorax. IMPRESSIONS: Suspected CHF. Signed: Jeannette Nava Verified Date/Time: 05/13/2017 10:22:34 Reading Location: [facility] Radiology Reading Room POCT-GLUCOSE METER 2017-05-13 08:34:00 Test Item Value Reference Range Interpretation Comments POC-GLUCOSE METER 178 mg/dL 70-110 H TESTED AT [facility] (test code = JULIANO Osborne [facility] 1538) [id number] POCT-GLUCOSE [id number] 06:53:00 Test Item Value Reference Range Interpretation Comments POC-GLUCOSE METER 167 mg/dL 70-110 H TESTED AT [facility] 6720 (BEAKER) (test code = JULIANO Osborne [facility] 1538) [address] [id number] 04:48:00 Test Item Value Reference Range Interpretation Comments BLOOD UREA NITROGEN (BEAKER) (test 36 mg/dL 7-21 H code = 354) [id number] 04:48:00 Test Item Value Reference Range Interpretation Comments SODIUM (BEAKER) (test code = 381) 139 meq/L 136-145 POTASSIUM (BEAKER) (test code = 5.2 meq/L 3.5-5.1 H 379) CHLORIDE (BEAKER) (test code = 382) 109 meq/L 98-107 H CO2 (BEAKER) (test code = 355) 23 meq/L 22-29 [id number] 04:48:00 Test Item Value Reference Range Interpretation [...] WBC 0-0 (BEAKER) (test code = 413) [id number] 23:29:00 Test Item Value Reference Range Interpretation Comments ACTIVATED CLOTTING TIME 136 sec TEST ED AT [place] [address] (BEAKER) (test code = JULIANO Osborne [place] 441) [address] [id number] 20:13:00 Test Item Value Reference Range Interpretation Comments ACTIVATED CLOTTING TIME 175 sec TEST ED [facility] [place] [address] [facility] (test code = JULIANO Osborne [place] 441) [id number] 18:36:00 Test Item Value Reference Range Interpretation Comments ACTIVATED CLOTTING TIME 202 sec TEST ED AT [place] [address] (BEAKER) (test code = JULIANO Osborne [facility] 441) [address] [id number] 18:03:00 Test Item Value Reference Range Interpretation Comments ACTIVATED CLOTTING TIME 208 sec TEST ED AT [place] [address] [facility] (test code = JULIANO Osborne [facility] 441) [address] BASIC METABOLIC [id number] 11:57:00 Test Item Value Reference Range Interpretation [...] NOT APPLICABLE FOR DIALYSIS PATIEN TS. PROTHROMBIN [id number] 11:15:00 Test Item Value Reference Range Interpretation [...] if on CoumadinCBC W/PLT COUNT & AUTO [id number] 11:01:00 Test Item Value Reference Range Interpretation [...] PERCENT (BEAKER) (test code = 2801) POCT-GLUCOSE [id number] 12:35:00 Test Item Value Reference Range Interpretation Comments POC-GLUCOSE METER 249 mg/dL 70-110 H TESTED AT [facility] 67 [facility] ([facility] 1538) [address] POCT-GLUCOSE [id number] 09:10:00 Test Item Value Reference Range Interpretation Comments POC-GLUCOSE METER 155 mg/dL 70-110 H TESTED AT [place] [address] ([facility] (test code = [facility] Dylon [facility] 1538) [address] BASIC METABOLIC [id number] 05:39:00 Test Item Value Reference Range Interpretation [...] S NOT APPLICABLE FOR DIALYSIS PATIEN TS. [id number] 05:27:00 Test Item Value Reference Range Interpretation Comments [facility]US [facility] (test code = 5.0 mg/dL 2.3-4.7 H 604) [id number] 05:27:00 Test Item Value Reference Range Interpretation Comments [facility]UM [facility] (test code = 1.6 mg/dL 1.6-2.6 627) POCT-GLUCOSE [id number] 05:25:00 Test Item Value Reference Range Interpretation Comments POC-GLUCOSE METER 144 mg/dL 70-110 H TESTED AT [place] [address] ([facility] (test code = [facility] 1538) [address] PROTHROMBIN [id number] 04:58:00 Test Item Value Reference Range Interpretation Comments PROTIME ([facility] (test code = 14.2 seconds 11.7-14.7 759) INR ([facility] (test code = 370) 1.1 <=5.9 RECOMMENDED COUMADIN/WARFARIN INR THERAPY RANGESSTANDARD DOSE: 2.0 - 3.0 Includes: PROPHYLAXIS forvenous thrombosis, systemic embolization; TREATMENT for venous thrombosis and/or pulmonary embolus.HIGH RISK: Target INR is 2.5-3.5 for patients with mechanical heart valves.POCT-GLUCOSE [id number] 23:55:00 Test Item Value Reference Range Interpretation Comments POC-GLUCOSE METER 86 mg/dL 70-110 TESTED AT [place] [address] ([facility] (test code = [facility] [address] 1538) B-TYPE NATRIURETIC FACTOR (BNP)[id number] 18:13:00 Test Item Value Reference Range Interpretation Comments B-TYPE NATRIURETIC PEPTIDE 1203 pg/mL 0-100 H ([facility] (test code = 700) POCT-GLUCOSE [id number] 17:36:00 Test Item Value Reference Range Interpretation Comments POC-GLUCOSE METER 259 mg/dL 70-110 H TESTED AT [place] [address] ([facility] (test code = [facility] 1538) [address] HEMOGLOBIN [id number] 14:24:00 Test Item Value Reference Range Interpretation Comments HEMOGLOBIN A1C ([facility] (test code = 10.5 % 4.3-6.1 H 368) POCT-GLUCOSE [id number] 12:34:00 Test Item Value Reference Range Interpretation Comments POC-GLUCOSE METER 207 mg/dL 70-110 H TESTED AT [facility] 6720 (BEAKER) (test code = JULIANO [place] 1538) [address] [id number] 07:53:00 Test Item Value Reference Range Interpretation Comments PHOSPHORUS (BEAKER) (test code = 3.9 mg/dL 2.3-4.7 604) [id number] 07:53:00 Test Item Value Reference Range Interpretation Comments MAGNESIUM (BEAKER) (test code = 1.6 mg/dL 1.6-2.6 627) BASIC METABOLIC [id number] 07:53:00 Test Item Value Reference Range Interpretation [...] NOT APPLICABLE FOR DIALYSIS PATIEN TS. TROPONIN [id number] 07:29:00 Test Item Value Reference Range Interpretation [...] acidosis, acute neurological disease, and persistent tachyarrhythmia.PROTHROMBIN [id number] 07:01:00 Test Item Value Reference Range Interpretation Comments PROTIME (ROBERT) (test code = 13.8 seconds 11.7-14.7 759) INR ([facility] (test code = 370) 1.1 <=5.9 RECOMMENDED COUMADIN/WARFARIN INR THERAPY RANGESSTANDARD DOSE: 2.0 - 3.0 Includes: PROPHYLAXIS forvenous thrombosis, systemic embolization; TREATMENT for venous thrombosis and/or pulmonary embolus.HIGH RISK: Target INR is 2.5-3.5 for patients with mechanical heart valves.POCT-GLUCOSE [id number] 06:28:00 Test Item Value Reference Range Interpretation Comments POC-GLUCOSE METER 198 mg/dL 70-110 H TESTED AT [place] [address] ([facility] (test code = JULIANO [place] 1538) [address] CREATINE KINASE (CK), TOTAL AND [id number] 00:49:00 Test Item Value Reference Range Interpretation Comments CREATINE KINASE TOTAL ([facility] 69 U/L 29-200 (test code = 380) CREATINE KINASE-MB ([facility] (test 4.3 ng/mL 0.0-6.6 code = 750) CREATINE KINASE-MB INDEX ([facility] 6.2 % (test code = 395) CK-MB Reference Range:<6.7 Normal6.7-10.0 Borderline>10.0 AbnormalTROPONIN [id number] 00:49:00 Test Item Value Reference Range Interpretation Comments TROPONIN I ([facility] (test code = 0.05 ng/mL 0.00-0.03 H [...] acidosis, acute neurological disease, and persistent tachyarrhythmia.POCT-GLUCOSE [id number] 20:44:00 Test Item Value Reference Range Interpretation Comments POC-GLUCOSE METER 269 mg/dL 70-110 H TESTED AT [place] [address] (BEAKER) (test code = JULIANO Osborne [facility] 1538) [id number]
[2020-07-08 17:41] LABS: Absolute Lymphocytes (CBC) 1.5 K/uL (0.7-4.9); Hematocrit 37.5 % (36.0-45.0); MPV 7.1 fL (7.6-11.3); RBC Red Blood Cell Count 4.37 M/uL (3.86-4.86)
[2020-07-08 17:50] LABS: Albumin 2.6 g/dL (3.4-5.0); Bilirubin Direct 0.2 mg/dL (0-0.2); Bilirubin Total 0.5 mg/dL (0.2-1.0); Potassium 4.2 mmol/L (3.5-5.1); Protein, Total 7.3 g/dL (6.4-8.2)
[2020-07-08] MEDS ORDERED: NA CHLORIDE 0.9% 1,000 ML ONE (18:09)
[2020-07-08] MEDS ORDERED: ONDANSETRON 4 MG/2 ML VIAL ONE ×2 (18:09→22:52)
[2020-07-08] MEDS ORDERED: MEPERIDINE HCL 25 MG/ML SYR ONE (19:11)
--- NOTE | 2020-07-08 21:17 | RAD REPORT ---
EXAM DESCRIPTION: CT - Abdomen Pelvis Wo Contrast - 07/08/2020 8:10 pm CLINICAL HISTORY: NAUSEA / VOMITING COMPARISON: Abdomen Pelvis Wo Contrast dated 06/27/2020 TECHNIQUE: Axial [address] imaging of the abdomen and pelvis was performed without IV contrast. No IV contrast was given because of allergy, abnormal renal function, patient refusal or physician re quest. Oral contrast was given. All CT scans are performed using dose optimization technique as appropriate and may include automated exposure control or mA/KV adjustment according to patient size. FINDINGS: Large right pleural effusion is present. Right base atelectasis present. Parenchymal nodul arity is similar to the comparison study. No pericardial effusion. Nodularity of the hepatic capsule again noted. No new or enlarging liver lesion. No splenomegaly or f ocal splenic finding. No acute pancreatic process. Gallbladder is contracted or absent. No abnormal b iliary tree dilatation. No hydronephrosis or suspicious renal mass. No significant adrenal finding. Isodense renal masses an d pyelonephritis cannot be excluded in the absence of IV contrast. Urinary bladder is mostly contract ed. No gastric dilatation or gastric wall thickening. Gastric surgical changes are noted. Oral CT contras t has reached the distal rectum. No dilated large or small bowel. No acute bowel finding confirmed. T here is no extravasation of the oral contrast. Large amount of ascites is again noted similar to June 27. No free air or pneumatosis. No mass or b ulky lymphadenopathy. Congestion or edema of the omentum is present. Patient has a large amount of fl uid in the subcutaneous fatty tissues. No suspicious bony findings. IMPRESSION: No acute GI process identifiable. There is no extravasation of oral contrast which has r eached the distal rectum. Large amount of ascites, large right pleural effusion and extensive subcutaneous fluid retention all similar to prior imaging. Above detailed findings are not significantly different from June 27 examination. Full assessment is limited is the absence of IV contrast.
[2020-07-08] MEDS ORDERED: HYDROMORPHONE HCL 1 MG/ML INJ ONE (21:59)
--- NOTE | 2020-07-08 22:22 | ER ---
Nurse's Notes [facility] [place] Name: Christy Priest Age: 65 yrs Sex: Female : 1955 Arrival Date: 07/08/2020 Time: 16:58 Bed 18 Private MD: Diagnosis: Diarrhea, unspecified;Nausea with vomiting, unspecified Presentation: 07/08 16:58 Chief complaint: EMS states: diarrhea x 1 week. Generalized weakness. Cannot keep down bw food or drink for longer than 45 min per patient. Coronavirus screen: At this time, unable to obtain information related to travel outside the [place] At this time, the client does not indicate any symptoms associated with coronavirus-19. Ebola Screen: No symptoms or risks identified at this time. Initial Sepsis Screen: Does the patient meet any 2 criteria? No. Patient's initial sepsis screen is negative. Does the patient have a suspected source of infection? No. Patient's initial sepsis screen is negative. Risk Assessment: Do you want to hurt yourself or someone else? Patient reports no desire to harm self or others. Onset of symptoms is unknown. 16:58 Method Of Arrival: EMS: [facility] bw 16:58 Acuity: DENNY 3 bw Triage Assessment: 17:02 General: Appears in no apparent distress. Behavior is calm, cooperative, appropriate bw for age. Pain: Complains of pain in abdomen. Neuro: No deficits noted. Cardiovascular: No deficits noted. Respiratory: No deficits noted. GI: Reports diarrhea, nausea. Historical: - Allergies: 17:02 Augmentin; bw 17:02 basil; bw 17:02 Clindamycin; bw 17:02 Morphine; bw 17:02 Nitroglycerin; bw 17:02 Tramadol HCl; bw 17:02 Trazodone; bw 17:02 Vancomycin; bw 17:02 Vicodin; bw - Home Meds: 17:02 gabapentin Oral [Active]; Plavix Oral [Active]; Lasix Oral [Active]; bw - PMHx: 17:02 ADD/ADHD; CHF; COPD; Diabetes - IDDM; Dialysis; ESRD; High Cholesterol; Hypertension; bw triple bypass; uterine cancer; - Immunization history:: Adult Immunizations up to date. - Social history:: Smoking status: unknown. - Family history:: not pertinent. - Hospitalizations: : No recent hospitalization is reported. Screenin:04 Abuse screen: Denies threats or abuse. Nutritional screening: No deficits noted. bw Tuberculosis screening: No symptoms or risk factors identified. Fall Risk None identified. Assessment: 17:04 Reassessment: see triage assessment. bw 17:59 Reassessment: Patient appears in no apparent distress at this time. Patient and/or bw family updated on plan of care and expected duration. Pain level reassessed. Patient is alert, oriented x 3, equal unlabored respirations, skin warm/dry/pink. 20:00 General: Appears in no apparent distress. comfortable, obese, Behavior is calm, sf cooperative. Neuro: Level of Consciousness is awake, alert, Oriented to person, place, time, situation. Cardiovascular: No deficits noted. Patient's skin is warm and dry. Respiratory: No deficits noted. Airway is patent Respiratory effort is even, unlabored, Respiratory pattern is regular, symmetrical. GI: Abdomen is non-distended, obese, Reports diarrhea. : No signs and/or symptoms were reported regarding the genitourinary system. Derm: Decubitus located on sacrum. 20:55 Reassessment: Given bag so she could get her phone. Bed low and locked, rails up x2, sf call button within reach. Clean warm blanket given. No other needs expressed or verbalized at this time. 22:39 Reassessment: pt vomiting during discharge Dr Nicholas notified new orders received pt bb medicated see MAY. Reassessment: Patient is alert, oriented x 3, equal unlabored respirations, skin warm/dry/pink. pt verbalized understanding of and agrees to plan of care discharge instructions given pt awaiting arrival of daughter for transportation home. Vital Signs: 16:58 BP 169 / 89; Pulse 72; Resp 18; Temp 97.5; Pulse Ox 98% on R/A; Pain 3/10; bw 17:59 Pulse 68; Pulse Ox 99% on R/A; bw 19:00 BP 176 / 95; Pulse 71; Resp 18; Pulse Ox 98% ; sf 20:16 BP 169 / 80; Pulse 71; Resp 18; Pulse Ox 99% ; sf 21:00 BP 159 / 90; Pulse 68; Resp 18; Pulse Ox 100% ; sf 22:41 BP 174 / 83; Pulse 73; Resp 18 S; Temp 97.5(O); Pulse Ox 100% on R/A; Pain 4/10; bb ED Course: 16:58 Patient arrived in ED. bw 17:01 Triage completed. bw 17:01 Jurgen Nettles MD is Attending Physician. rn 17:02 Arm band placed on right wrist. bw 17:04 Patient has correct armband on for positive identification. Bed in low position. Call light in reach. Side rails up X 1. Pulse ox on. NIBP on. Warm blanket given. 17:04 No provider procedures requiring assistance completed. bw 17:05 Carmina Au RN is Primary Nurse. bw 17:24 Inserted saline lock: 20 gauge in right forearm, using aseptic technique. Blood dh4 collected. 19:00 Attending Physician role handed off by Jurgen Nettles MD 7 19:00 Miguel Nicholas MD is Attending Physician. [facility] 19:16 Primary Nurse role handed off by Carmina Au RN 2 20:05 Aba Colorado RN is Primary Nurse. sf 20:05 Abdomen Sent. sf 20:10 Abdomen In Process Unspecified. EDMS 20:45 Cleaned of incontinence. Incontinent of stool. sf 20:55 Accessed PICC line. Clean \T\ dry. Dressing intact. Left upper arm PICC. sf 21:45 Cleaned of incontinence. Incontinent of stool. sf 22:21 Yandel Sam MD is Referral Physician. [facility] 22:46 IV discontinued, intact, bleeding controlled, No redness/swelling at site. Pressure sf dressing applied. Administered Medications: 18:00 Drug: NS 0.9% 500 ml Route: IV; Rate: bolus; Site: right forearm; bw 19:00 Follow up: Response: No adverse reaction; IV Status: Completed infusion; IV Intake: sf 500ml 18:01 Drug: Zofran (Ondansetron) 4 mg Route: IVP; Site: right forearm; bw 20:05 Follow up: Response: No adverse reaction sf 18:56 Drug: Demerol 25 mg Route: IVP; Site: right forearm; bw 20:05 Follow up: Response: No adverse reaction sf 21:42 Drug: Dilaudid (HYDROmorphone) 1 mg Route: IVP; Site: right antecubital; sf 22:29 Follow up: Response: No adverse reaction sf 22:35 Drug: Zofran (Ondansetron) 4 mg {Note: by GUILHERME Renner.} Route: IVP; Site: right sf antecubital; 22:46 Follow up: Response: No adverse reaction; Nausea is decreased sf Intake: 19:00 IV: 500ml; Total: 500ml. sf Outcome: 22:22 Discharge ordered by MD. ferrara 22:42 Discharged to home ambulatory, with family. 22:42 Condition: stable 22:42 Discharge instructions given to patient, Instructed on discharge instructions, follow up and referral plans. medication usage, Demonstrated understanding of instructions, follow-up care, medications, Prescriptions given X 3. 23:03 Patient left the ED. sf Signatures: Dispatcher [employer] EDMS Jud Mayes, Jurgen El RN, MD MD rn [place], [facility] T[facility] De[facility]us [facility] Miguel Nicholas MD MD Aba Ricks RN RN sf Webb, Bethany, RN RN
--- NOTE | 2020-07-08 22:22 | EDPHYS ---
Physician Documentation [facility] Name: Christy Priest Age: 65 yrs Sex: Female : 1955 Arrival Date: 07/08/2020 Time: 16:58 Bed 18 Private MD: ED Physician Miguel Nicholas HPI: 07/08 17:36 This 65 yrs old Female presents to ER via EMS with complaints of Diarrhea, rn vomiting. 17:36 The patient presents to the emergency department with nausea, vomiting, diarrhea. rn 17:38 Onset: The symptoms/episode began/occurred 1 week(s) ago. Possible causes: unknown. The rn symptoms are aggravated by food , The symptoms are alleviated by nothing. Associated signs and symptoms: Pertinent positives: diarrhea, nausea, vomiting, Pertinent negatives: fever, GI bleeding. Severity of symptoms: At their worst the symptoms were mild in the emergency department the symptoms are unchanged. The patient has experienced similar episodes in the past. The patient has been recently seen by a physician:. Reports diarrhea for 1 week, vomiting began today. Denies blood in emesis or stool. No fever. + mild abd cramping. Reports last dialysis 1 week ago, just had catheter placed. No trauma. . Historical: - Allergies: 17:02 Augmentin; bw 17:02 basil; bw 17:02 Clindamycin; bw 17:02 Morphine; bw 17:02 Nitroglycerin; bw 17:02 Tramadol HCl; bw 17:02 Trazodone; bw 17:02 Vancomycin; bw 17:02 Vicodin; bw - Home Meds: 17:02 gabapentin Oral [Active]; Plavix Oral [Active]; Lasix Oral [Active]; bw - PMHx: 17:02 ADD/ADHD; CHF; COPD; Diabetes - IDDM; Dialysis; ESRD; High Cholesterol; Hypertension; bw triple bypass; uterine cancer; - Immunization history:: Adult Immunizations up to date. - Social history:: Smoking status: unknown. - Family history:: not pertinent. - Hospitalizations: : No recent hospitalization is reported. ROS: 17:38 Constitutional: Negative for fever, chills, and weight loss, Eyes: Negative for injury, rn pain, redness, and discharge, Neck: Negative for injury, pain, and swelling, Cardiovascular: Negative for chest pain, palpitations, and edema, Respiratory: Negative for shortness of breath, cough, wheezing, and pleuritic chest pain, Abdomen/GI: + nausea/vomiting/diarrhea. Back: Negative for injury and pain, MS/Extremity: Negative for injury and deformity, Skin: Negative for injury, rash, and discoloration, Neuro: Negative for headache, numbness, tingling, and seizure. Exam: 17:38 Constitutional: This is a well developed, well nourished patient who is awake, alert, rn and in no acute distress. Head/Face: Normocephalic, atraumatic. ENT: dry MM Cardiovascular: Regular rate and rhythm. No pulse deficits. Respiratory: No increased work of breathing, no retractions or nasal flaring. Abdomen/GI: soft, non-tender Skin: Warm, dry MS/ Extremity: Pulses equal, no cyanosis. Neuro: Awake and alert, GCS 15, oriented to person, place, time, and situation. Vital Signs: 16:58 BP 169 / 89; Pulse 72; Resp 18; Temp 97.5; Pulse Ox 98% on R/A; Pain 3/10; bw 17:59 Pulse 68; Pulse Ox 99% on R/A; bw 19:00 BP 176 / 95; Pulse 71; Resp 18; Pulse Ox 98% ; sf 20:16 BP 169 / 80; Pulse 71; Resp 18; Pulse Ox 99% ; sf 21:00 BP 159 / 90; Pulse 68; Resp 18; Pulse Ox 100% ; sf 22:41 BP 174 / 83; Pulse 73; Resp 18 S; Temp 97.5(O); Pulse Ox 100% on R/A; Pain 4/10; bb MDM: 17:01 Patient medically screened. rn 18:44 ED course: pt keeping contrast down, medicated for pain, awaiting ct abdomen. . rn 22:20 Differential diagnosis: gastritis, pancreatitis, diverticulitis, viral gastroenteritis, mh7 gastroenteritis. Data reviewed: vital signs, nurses notes, old medical records, lab test result(s), CBC, electrolytes, radiologic studies, CT scan. Data interpreted: Pulse oximetry: on room air is 100 %. Interpretation: normal. 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 Response to treatment: the patient's symptoms have resolved after treatment, the patient's blood pressure is in an acceptable range, mental status has returned to baseline, the patient no longer shows bradycardia, the patient is not short of breath, the patient is not tachycardic, the patient's pain is gone, the patient's temperature has normalized. 07/08 17:03 Order name: Basic Metabolic Panel; Complete Time: 17:51 rn 07/08 17:03 Order name: CBC with Diff; Complete Time: 17:51 rn 07/08 17:03 Order name: Hepatic Function; Complete Time: 17:51 rn 07/08 17:03 Order name: Lipase; Complete Time: 17:51 rn 07/08 19:54 Order name: Abdomen ; Complete Time: 21:21 EDMS 07/08 17:03 Order name: IV Saline Lock; Complete Time: 17:24 rn 07/08 17:03 Order name: Labs collected and sent; Complete Time: 17:24 rn Administered Medications: 18:00 Drug: NS 0.9% 500 ml Route: IV; Rate: bolus; Site: right forearm; bw 19:00 Follow up: Response: No adverse reaction; IV Status: Completed infusion; IV Intake: sf 500ml 18:01 Drug: Zofran (Ondansetron) 4 mg Route: IVP; Site: right forearm; bw 20:05 Follow up: Response: No adverse reaction sf 18:56 Drug: Demerol 25 mg Route: IVP; Site: right forearm; bw 20:05 Follow up: Response: No adverse reaction sf 21:42 Drug: Dilaudid (HYDROmorphone) 1 mg Route: IVP; Site: right antecubital; sf 22:29 Follow up: Response: No adverse reaction sf 22:35 Drug: Zofran (Ondansetron) 4 mg {Note: by GUILHERME Renner.} Route: IVP; Site: right sf antecubital; 22:46 Follow up: Response: No adverse reaction; Nausea is decreased sf Disposition: 04/10/21 22:22 Discharged to Home. Impression: Diarrhea, unspecified, Nausea with vomiting, unspecified. - Condition is Stable. - Discharge Instructions: Food Choices to Help Relieve Diarrhea, Adult, Nausea and Vomiting, Adult, [id number], Diarrhea, Adult, [id number]. - Prescriptions for Zofran ODT 4 mg Oral tablet,disintegrating - place 1 tablet by TRANSLINGUAL route every 8 hours As needed; 10 tablet. Bentyl 20 mg Oral Tablet - take 1 tablet by ORAL route every 6 hours As needed; 20 tablet. Pepcid 20 mg Oral Tablet - take 1 tablet by ORAL route every 12 hours for 5 days; 10 tablet. - Medication Reconciliation Form, Thank You Letter, Antibiotic Education, Prescription Opioid Use form. - Follow up: Private Physician; When: 1 - 2 days; Reason: Worsening of condition, Recheck today's complaints, Continuance of care, Re-evaluation by your physician. Follow up: Yandel Sam MD; When: 1 - 2 days; Reason: Worsening of condition, Recheck today's complaints. - Problem is an acute exacerbation. - Symptoms have improved. Signatures: Dispatcher [employer] [facility] Jurgen Nettles MD MD rn Holmes, Maurice, MD MD [facility] Aba [place] RN RN sf Webb, Bethany, RN RN Corrections: (The following items were deleted from the chart) 19:54 17:33 Abdomen Pelvis W [id number].[id number] ordered. [facility] 23:02 22:22 07/08/2020 22:22 Discharged to Home. Impression: Diarrhea, unspecified; Nausea sf with vomiting, unspecified. Condition is Stable. Forms are Medication Reconciliation Form, Thank You Letter, Antibiotic Education, Prescription Opioid Use. Follow up: Private Physician; When: 1 - 2 days; Reason: Worsening of condition, Recheck today's complaints, Continuance of care, Re-evaluation by your physician. Follow up: Yandel Sam; When: 1 - 2 days; Reason: Worsening of condition, Recheck today's complaints. Problem is an acute exacerbation. Symptoms have improved. mh7
[2020-07-09 01:50] VITALS: TEMP 97.5
[2020-07-09 01:54] VITALS: O2SAT 100
[2020-07-09 01:56] VITALS: BP 174/83
== END 2020-07-08 23:02 | disposition home or self-care (01) ==
LOC: ER 16:56
DX: R19.7 Diarrhea, unspecified (principal); R11.2 Nausea with vomiting, unspecified; F90.9 Attention-deficit hyperactivity disorder, unspecified type; I13.2 Hypertensive heart and chronic kidney disease with heart failure and with stage 5 chronic kidney disease, or end stage renal disease; I50.9 Heart failure, unspecified; E11.22 Type 2 diabetes mellitus with diabetic chronic kidney disease; N18.6 End stage renal disease; Z99.2 Dependence on renal dialysis; J44.9 Chronic obstructive pulmonary disease, unspecified; Z79.4 Long term (current) use of insulin; E78.00 Pure hypercholesterolemia, unspecified; Z95.1 Presence of aortocoronary bypass graft; Z85.42 Personal history of malignant neoplasm of other parts of uterus; Z79.02 Long term (current) use of antithrombotics/antiplatelets
CPT/HCPCS: 85025; 80048; 36415; 80076; 83690; 74176; J2175; J1170; J7030; J2405 ×2; 99285

== ENCOUNTER 2020-07-10 14:16 | Inpatient (IN) | payer OTHER ==
--- OUTSIDE RECORDS SUMMARY | 2020-07-10 14:27 | XMS REPORT | Continuity of Care Document ---
:1955 Author Organization [facility] t Address 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 y disorder, disorder, with with long-term long-term current current use of use of insulin insulin Smoker Smoker Disease Active [facility] 00 Center Frequent Frequent Disease Active [facility] PVCs PVCs 2[facility]12 [facility] 00 Center Essential Essential Problem Active [facility] (primary[facility] (primary[facility] Luke s - hypertensi hypertensi Me moria [facility] Depression Depression Problem Active [...] d COPD d COPD Clinics type type group home group home Problem Active [facility] current current [...] St disease disease [facility] Allergies, Adverse Reactions, Alerts Allergy Allergy Status Severity Reaction(s) Onset Inactive Treating Comm ents Source Name Type Date Date Clinician Trazodon Drug Active Nausea And [facility] Allergy Vomiting 2-12 [facility] - 00:00: Medical 00 [place] Morphine Propensi Active Anaphylaxis C HI St [...] in HCl Reaction [facility] Nitrogly Adverse Active vomiting [facility] cerin Reaction [facility] Morphine Adverse Active headache, [facility] Sulfate Reaction breathing Luke s - Memoria l [facility] Clindamy Adverse Active vomiting [facility] riley HCl Reaction [facility] Family History Family Member Diagnosis Comments Start Date Stop Date Source Natural father COPD [facility] Natural father Cancer [facility] Natural father Hypertension [facility] Natural mother No Known Problem [facility] Natural sister Asthma [facility] Natural sister COPD [facility] Social History Social Habit Start Date Stop Date Quantity Comments Source Sex Assigned At [facility] Cigarettes smoked 2019-12-31 2019-12-31 bernardino - current (pack per 00:00:00 00:00:00 [facility] day) - Reported Cigarette 2019-12-31 2019-12-31 [facility] - pack-years 00:00:00 00:00:00 [facility] Tobacco use and 2019-12-31 2019-12-31 Never used [facility] - exposure 00:00:00 00:00:00 [facility] Alcohol intake 2019-12-31 2019-12-31 Current [facility] - 00:00:00 00:00:00 non-drinker of Medical Ce nter alcohol (finding) History of tobacco 2017-05-12 Current sm[facility] - use 00:[facility]:00 [facility] Smoking Status Start Date Stop [...] - 2 % 10:49: daily. Medical ointment [address] [place] [address] collagenase 2019-03 Yes QD Apply [facility] (SANTYL) 0-03 topically [facility] - 250 units/g 10:49: daily. Medi marilin ointment [address] [place] [address] bumetanide 2019-03 Yes 2mg [id number] Take [address] (BUMEX) 2 0-03 [id number] by mouth 3 [facility] - MG tablet [...] I St (ZAROXOLYN) 0-03 by mouth 2 Janan kes - 5 MG tablet 10:49: (two) [...] - MOUTH Memoria EVERYDAY l AT BEDTIME [facility] Isosorbide Isosorbide Yes Franki [...] [facility] - MOUTH Memoria EVERY DAY l [facility] Acetaminoph Acetaminoph Yes Franki (Schedule [facility] en-Codeine en-Codeine Jas III Drug) Shannon - #3 #3 TAKE 1 Memoria TABLET BY l MOUTH Outpati EVERY 6 ent HOURS Clinics NEEDED FOR PAIN Carvedilol Carvedilol Yes Franki TAKE [address] [facility] Jas TABLET BY [facility] - MOUTH Memoria TWICE A l DAY [facility] Advair Advair Yes Franki INHALE 1 [facility] Diskus Diskus Jas DOSE BY [facility] - MOUTH Memoria TWICE l DAILY. [facility] RINSE ent MOUTH Clinics AFTER USE Atorvastati Atorvastati Yes Franki TAKE [address] [facility] n Calcium n Calcium Jas TABLET BY [facility] - MOUTH Memoria EVERY DAY l [facility] Allopurinol Allopurinol Yes Franki TAKE [address] [facility] Jas TABLET BY [facility] - MOUTH Memoria TWICE A l DAY [facility] Gabapentin Gabapentin Yes Franki TAKE [address] [facility] Jas CAPSULE BY [facility]ukes - MOUTH Memoria THREE l TIMES A Outpati DAY ent Clinics Clopidogrel Clopidogrel Yes Franki TAKE [address] [facility] Bisulfate Bisulfate Jas TABLET BY [facility] - MOUTH Memoria EVERY DAY l [facility] Vitamin D Vitamin D [...] Jas UNITS Lay es - [facility] SK[facility] IN l THE Outpati MORNING ent Clinics HydrALAZINE HydrALAZINE Yes Franki TAKE [address] [facility] HCl HCl Jas TABLET BY [facility]ukes - MOUTH Memoria THREE l TIMES A Outpati DAY ent Clinics Vital Signs Vital Name Observation Time Observation Value Comments Source Heart rate 2020-01-01 08:41:00 60 /min [facility] Respiratory rate 2020-01-01 08:41:00 18 /min [facility] Oxygen saturation in 2020-01-01 08:41:00 100 /min [facility] Arterial blood by Medical Ce nter Pulse oximetry Systolic blood 2020-01-01 08:32:00 162 mm[Hg] [facility] Diastolic blood 2020-01-01 08:32:00 73 mm[Hg] [facility] Body temperature 2020-01-01 07:41:00 36.56 Deanne [facility] Body weight 2019-12-30 04:28:00 78.2 kg [facility] BMI 2019-12-30 04:28:00 27.00 kg/m2 [facility] Body height 2019-12-25 21:05:00 170.2 cm [facility] Procedures Procedure Date / Time Performed Performing Clinician [facility] e REPORT OF PROCEDURE - 2020-01-05 08:40:02 Provider, Default [facility] ENDOSCOPY SCAN Scanning [facility] RHYTHM STRIP - SCAN 2020-01-05 08:31:43 Provider, Default [facility] Scanning [facility] RHYTHM STRIP - SCAN 2020-01-05 08:31:42 Provider, Default [facility] RHYTHM STRIP - SCAN 2020-01-05 08:31:40 Provider, Default [facility] CARDIAC CATH REPORT - 2020-01-05 08:31:15 Provider, Default [facility] CARDIAC CATH REPORT - 2020-01-05 08:31:13 Rocco Sepulveda [facility] POCT-GLUCOSE METER 2020-01-01 06:33:00 Cade [facility] CBC W/PLT COUNT & AUTO 2020-01-01 05:37:00 Lily Echavarria [facility] COMPREHENSIVE METABOLIC 2020-01-01 05:37:00 [facility] POCT-GLUCOSE METER 2019-12-31 20:50:00 Cade, [facility] POCT-GLUCOSE METER 2019-12-31 18:00:00 Cade [facility] POCT-GLUCOSE METER 2019-12-31 11:42:00 Cade [facility] POCT-GLUCOSE METER 2019-12-31 06:29:00 Cade [facility] CBC W/PLT COUNT & AUTO 2019-12-31 06:05:00 JerichoLily [facility] COMPREHENSIVE METABOLIC 2019-12-31 06:05:00 JerichoLily [facility] MAGNESIUM 2019-12-31 06:05:00 [facility] POCT-GLUCOSE METER 2019-12-30 20:13:00 [facility] POCT-GLUCOSE METER 2019-12-30 16:26:00 Cade [facility] SURGICALLY OBTAINED 2019-12-30 13:59:46 Tala Santacruz I [facility] - CULTURE + GRAM STAIN Medical Matthew ter ANAEROBIC CULTURE 2019-12-30 13:59:46 Tala Santacruz [facility] SURGICALLY OBTAINED 2019-12-30 13:54:56 Tala Santacruz [facility] I [facility] - CULTURE + GRAM STAIN Medical [facility] ter ANAEROBIC CULTURE 2019-12-30 13:54:56 [facility] 2019-12-30 13:38:00 Tala Santacruz [facility] I&D,BONE FOOT 2019-12-30 13:11:00 Tala Santacruz [facility] POCT-GLUCOSE METER 2019-12-30 11:39:00 [facility] POCT-GLUCOSE METER 2019-12-30 05:39:00 Pat [facility]ud [facility] SARS-COV2/RT-PCR ([facility] & 2019-12-30 05:11:00 [facility] CBC W/PLT COUNT & AUTO 2019-12-30 05:09:00 VanderbiltLily [facility] METABOLIC 2019-12-30 05:09:00 VanderbiltLily [facility] POCT-GLUCOSE METER 2019-12-29 21:09:00 [facility] POCT-GLUCOSE METER 2019-12-29 11:10:00 Pat Mohamud [facility] HEMODIALYSIS INPATIENT 2019-12-29 08:12:17 Brandie Khan [facility] POCT-GLUCOSE METER 2019-12-29 06:10:00 [facility]ade [facility] CBC W/PLT COUNT & AUTO 2019-12-29 05:50:00 VanderbiltLily [facility] METABOLIC 2019-12-29 05:50:00 VanderbiltLily [facility] POCT-GLUCOSE METER 2019-12-28 20:37:00 Cade [facility] POCT-GLUCOSE METER 2019-12-28 17:38:00 Cade [facility] POCT-GLUCOSE METER 2019-12-28 13:12:00 Cade [facility] POCT-GLUCOSE METER 2019-12-28 05:43:00 Cade [facility] CBC W/PLT COUNT & AUTO 2019-12-28 04:41:00 Lily Echavarria KATHRYN S t [facility] COMPREHENSIVE METABOLIC 2019-12-28 04:41:00 Vanderbilt Lily [facility] ABD AO & LOWER EXT 2019-12-28 02:30:00 Sakina Tamayo [facility] - ANGIOS/ POSS [facility] POCT-GLUCOSE METER 2019-12-27 20:32:00 Pat Mohamud [facility] MR LOWER EXTREMITY 2019-12-27 16:30:00 Jericho Lily [facility] - WITHOUT IV CONTRAST [facility] POCT-GLUCOSE METER 2019-12-27 14:06:00 [facility] WOUND CULTURE + GRAM 2019-12-27 12:02:00 Annia Delgado CH I [facility] - STAIN [facility] POCT-GLUCOSE METER 2019-12-27 06:44:00 Pat Mohamud [facility] POCT-GLUCOSE METER 2019-12-27 05:49:00 Pat Mohamud [facility] CBC W/PLT COUNT & AUTO 2019-12-27 05:05:00 VanderbiltChloeu [facility] METABOLIC 2019-12-27 05:05:00 VanderbiltLily [facility] HEMODIALYSIS INPATIENT 2019-12-27 00:31:18 Brandie Khan [facility] POCT-GLUCOSE METER 2019-12-26 20:51:00 Pat Mohamud [facility] TRANSFUSION SERVICE 2019-12-26 18:02:[address] [facility] REPORT - SCAN Scanning [facility] POCT-GLUCOSE METER 2019-12-26 16:42:00 [facility]/CTA AAA AND RUNOFF 2019-12-26 15:27:00 Sakina Tamayo [facility] POCT-GLUCOSE METER 2019-12-26 11:59:00 Pat Mohamud [facility] POCT-GLUCOSE METER 2019-12-26 06:09:00 [facility] CBC W/PLT COUNT & AUTO 2019-12-26 04:36:00 VanderbiltLily [facility] COMPREHENSIVE [facility] 2019-12-26 04:36:00 VanderbiltLily [facility] PREPARE LEUKO-REDUCED RBC 2019-12-25 23:54:00 Brandie Khan [facility] POCT-GLUCOSE METER 2019-12-25 20:51:00 Pat Mohamud [facility] TRANSFUSION SERVICE 2019-12-25 18:04:44 Rocco Sepulveda [facility] - SCAN Scanning [facility] POCT-GLUCOSE METER 2019-12-25 17:01:00 Pat Mohamud [facility] POCT-GLUCOSE METER 2019-12-25 11:25:00 Pat Mohamud [facility] CBC W/PLT COUNT & AUTO 2019-12-25 05:59:00 Lily Echavarria [facility] 2019-12-25 05:59:00 [facility] POCT-GLUCOSE METER 2019-12-25 05:58:00 [facility] TRANSFUSE LEUKO-REDUCED 2019-12-24 19:06:[address] [facility] RED BLOOD CELLS [facility] POCT-GLUCOSE METER 2019-12-24 16:15:00 Pat Moh[facility]ud [facility] ABORH, MANUAL 2019-12-24 08:25:00 Jovita Griffith [facility] POCT-GLUCOSE METER 2019-12-24 06:11:00 Cade [facility] TYPE AND SCREEN, 2019-12-24 06:08:00 Brandie Khan [facility] - AUTOMATED [facility] CBC W/PLT COUNT & AUTO 2019-12-24 05:51:00 VanderbiltLily [facility] 2019-12-24 05:51:00 Lily Echavarria [facility] POCT-GLUCOSE METER 2019-12-23 21:23:00 Pat Mohamud [facility] POCT-GLUCOSE METER 2019-12-23 16:42:00 Pat Mohamud [facility] MR LOWER EXTREMITY JOINT 2019-12-23 15:34:00 Tala Santacruz hy [facility] - ONLY WITHOUT IV CONTRAST [facility] LEFT MR BRAIN WITHOUT IV 2019-12-23 15:34:[address] [facility] - CONTRAST [facility] POCT-GLUCOSE METER 2019-12-23 11:16:00 Pat Mohamud [facility] ARTERIAL DOPPLER LEGS 2019-12-23 09:38:[address] [facility] BILATERAL [facility] AMMONIA 2019-12-23 04:05:[address] [facility] CBC W/PLT COUNT & AUTO 2019-12-23 04:00:00 VanderbiltLily S [facility] COMPREHENSIVE METABOLIC 2019-12-23 04:00:00 VanderbiltLily [facility] SARS-COV2/RT-PCR ([facility] & 2019-12-23 03:59:00 Pat Mohamud [facility] POCT-GLUCOSE METER 2019-12-22 20:34:00 Pat Mohamud [facility] POCT-GLUCOSE METER 2019-12-22 16:43:00 Pat Mohamud [facility] POCT-GLUCOSE METER 2019-12-22 11:31:00 Pat Mohamud [facility] POCT-GLUCOSE METER 2019-12-22 06:30:00 [facility] CBC W/PLT COUNT & AUTO 2019-12-22 05:14:00 VanderbiltLily S t [facility] COMPREHENSIVE METABOLIC 2019-12-22 05:14:00 VanderbiltLily [facility] POCT-GLUCOSE METER 2019-12-21 20:26:00 Pat Mohamud [facility] POCT-GLUCOSE METER 2019-12-21 17:22:00 Cade [facility] POCT-GLUCOSE METER 2019-12-21 12:35:00 Cade [facility] POCT-GLUCOSE METER 2019-12-21 07:20:00 Cade [facility] POCT-GLUCOSE METER 2019-12-21 05:52:00 Cade [facility] C-REACTIVE PROTEIN 2019-12-21 04:39:00 Annia Delgado [facility] CBC W/PLT COUNT & AUTO 2019-12-21 04:39:00 [facility] COMPREHENSIVE METABOLIC 2019-12-21 04:39:00 Vanderbilt [facility] US ABDOMEN COMPLETE 2019-12-20 21:17:00 Sakina Chen [facility] POCT-GLUCOSE METER 2019-12-20 20:23:00 Cade [facility] POCT-GLUCOSE METER 2019-12-20 17:31:[address] [facility] CT BRAIN WITHOUT IV 2019-12-20 16:04:00 [facility] AMMONIA 2019-12-20 14:41:00 Vanderbilt [facility] BLOOD GAS, ARTERIAL 2019-12-20 14:28:00 Vanderbilt [facility] XR FOOT 2 VIEWS LEFT 2019-12-20 11:55:00 Annia Delgado I [facility] POCT-GLUCOSE METER 2019-12-20 11:28:00 Cade [facility] POCT-GLUCOSE METER 2019-12-20 06:20:00 Cade [facility] OCCULT BLOOD, STOOL 2019-12-20 06:19:00 April, [facility]/APTT 2019-12-20 05:06:00 April Sakina Carrillo [facility] FIBRINOGEN 2019-12-20 05:06:00 [facility] D-DIMER 2019-12-20 05:06:00 [facility] IRON, TIBC, % SAT. 2019-12-20 05:06:00 [facility] Sakinara Carrillo [facility] (WITHOUT FERRITIN) [facility] r VITAMIN B12 AND FOLATE 2019-12-20 05:06:00 [facility] Sakina Carrillo [facility] RETICULOCYTE COUNT 2019-12-20 05:06:00 [facility] HAPTOGLOBIN 2019-12-20 05:06:00 [facility] TSH/FREE T4 IF INDICATED 2019-12-20 05:06:00 April Sakina [facility] FERRITIN 2019-12-20 05:06:00 [facility] Sakina Carrillo [facility] ANTI-NUCLEAR ANTIBODY 2019-12-20 05:06:[address] [facility] (ROGER) [facility] KAPPA / LAMBDA LIGHT 2019-12-20 05:06:[address] [facility] PROTEIN ELECTROPHORESIS, 2019-12-20 05:06:00 Sakina Chenba l [facility] PERIPHERAL BLOOD SMEAR - 2019-12-20 05:06:[address] [facility] PATHOLOGIST REVIEW [facility] r CBC W/PLT COUNT & AUTO 2019-12-20 05:06:00 Marcial Chapa [facility] COMPREHENSIVE METABOLIC 2019-12-20 05:06:00 Marcial Chapa [facility] T4, FREE 2019-12-20 05:06:00 April Sakina Carrillo [facility] ROGER TITER AND PATTERN 2019-12-20 05:06:00 Sakina Chenbal C [facility] POCT-GLUCOSE METER 2019-12-19 20:35:00 [facility] POCT-GLUCOSE METER 2019-12-19 16:06:00 Cade Pat [facility] HEMODIALYSIS INPATIENT 2019-12-19 16:02:09 Sharri Fernando [facility] CBC W/PLT COUNT & AUTO 2019-12-19 05:35:00 Marcial Chapa [facility] BASIC METABOLIC PANEL (7) 2019-12-19 05:35:00 Marcial Chapa [facility] LACTATE DEHYDROGENASE 2019-12-19 05:35:[address] [facility] (LDH) [facility] POCT-GLUCOSE METER 2019-12-19 05:24:00 Cade Pat [facility] POCT-GLUCOSE METER 2019-12-18 21:35:00 Cade Pat [facility] POCT-GLUCOSE METER 2019-12-18 16:05:00 Cade [facility] POCT-GLUCOSE METER 2019-12-18 07:45:00 Cade [facility] POCT-GLUCOSE METER 2019-12-18 06:14:00 Cade [facility] POCT-GLUCOSE METER 2019-12-17 21:44:00 Evens Mohamudruel [facility] POCT-GLUCOSE METER 2019-12-17 17:52:00 Cade [facility] POCT-GLUCOSE METER 2019-12-17 12:22:00 Cade [facility] HEMODIALYSIS INPATIENT 2019-12-17 10:33:08 Brandie Khan [facility] POCT-GLUCOSE METER 2019-12-17 06:18:00 Cade [facility] CBC W/PLT COUNT & AUTO 2019-12-17 04:14:00 Marcial Chapa [facility] COMPREHENSIVE METABOLIC 2019-12-17 04:13:[address] [facility] PANEL [facility] POCT-GLUCOSE METER 2019-12-16 20:55:00 Pat Mohamud [facility] POCT-GLUCOSE METER 2019-12-16 18:24:00 [facility] HEPATITIS B SURFACE 2019-12-16 16:02:[address] [facility] ANTIBODY [facility] HEPATITIS B SURFACE 2019-12-16 16:02:00 [facility] ANTIGEN [facility] HEPATITIS C ANTIBODY 2019-12-16 16:02:00 [facility] CORE 2019-12-16 16:02:00 [facility] es - ANTIBODY, TOTAL [facility] POCT-GLUCOSE METER 2019-12-16 14:47:00 [facility] IR TUNNELED DIALYSIS 2019-12-16 14:26:[address] [facility] CATHETER [facility] HEMODIALYSIS INPATIENT 2019-12-16 12:37:39 Bill [facility] POCT-GLUCOSE METER 2019-12-16 11:01:00 Pat Mohamud [facility] XR CHEST 1 VIEW 2019-12-16 05:55:[address] [facility] PORTABLE/BEDSIDE [facility] POCT-GLUCOSE METER 2019-12-16 05:51:00 [facility] CBC W/PLT COUNT & AUTO 2019-12-16 04:08:00 Marcial Chapa [facility] BASIC METABOLIC PANEL (7) 2019-12-16 04:08:00 Marcial Chapa [facility] PROTHROMBIN TIME/INR 2019-12-16 04:08:00 Marcial Chapa [facility] SARS-COV2/RT-PCR ([facility] & 2019-12-16 01:45:00 Pat Mohamud [facility] Plan of Care Planned Activity Planned Date Details Comments Source Future Scheduled 2020-12-[address] [facility] - Test 00:00:00 examination Medical Center (regime/therapy) [code = 324194265] Future Scheduled 2020-12-[address] [facility] 00:00[facility]00 [facility] colon (procedure) [code = 737070437] Future Scheduled 2020-03-[address] [facility] - Test 00:00:00 (12+) [code = Medical Center DEPRESSION SCREENING (12+)] Future Scheduled 2020 PNEUMOCOCCAL 65+ Y[facility] - Test 00:00:00 (1 of 1 - Medical Center [id number]) [code = PNEUMOCOCCAL 65+ YRS (1 of 1 - [id number])] Future Scheduled 2019-11-30 INFLUENZA VACCINE (#1) [facility] Test 00:00:00 [code = INFLUENZA Medical nter VACCINE (#1)] Future Scheduled 2017-08-[address] Janna kes - Test 00:00:00 measurement [facility] Center (procedure) [code = 49650850] Future Scheduled [address] [facility] - Test 00:00:00 (procedure) [code = Medical Center 21506631] Future Scheduled [address] - Test 00:00:00 malignant neoplasm of [facility] cervix (procedure) [code = 480445640] Future Scheduled 1965 DIABETIC EYE EXAM [facility] - Test 00:00:00 [code = DIABETIC EYE Medical Center EXAM] Future Scheduled 1965 Urine screening for [facility] - Test 00:00:00 protein (procedure) Medical Center [code = 131052711] Future Scheduled [address] [facility] - Test 00:00:00 malignant neoplasm of [facility] breast (procedure) [code = 228199973] Encounters Start End Encounter Admission Attending Care Care Encounter Source Date/Time Date/Time Type Type Clinicians Facility Department ID 2020-03-28 2020-03-29 Emergency Chato Fine [facility] [id number] 15:50:00 20:31:00 Maureen Terrazas [id number] [place] [id number] [place] [id number] 2018-11-17 2018-11-17 [facility] [id number] 11:30:00 11:30:00 [facility] 2018-10-06 2018-10-06 [facility] [id number] 16:14:00 16:14:00 [facility] 2018-09-28 2018-09-28 [facility] [id number] 10:30:00 10:30:00 [facility] ent [facility] Results Test Description Test Time Test Comments Results Result Comments Source ANAEROBIC CULTURE 2020-01-04 10:26:00 Test Item Value Reference Range Interpretation Comme nts CULTURE (BEAKER) (test code = 1095) No anaerobes isolated Tissue [id number] 10:21:00 Test Item Value Reference Range Interpretation Comments Case Report (test code Surgical Pathology = 104) Report Case: [id number] Authorizing Provider: Tala Santacruz DPM Collected: 12/30/2019 01:38 PM Ordering Location: [address] Med/Surg Received: 12/31/2019 06:52 AM Pathologist: Jovita Griffith MD Specimens: A) - Soft Tissue, Other, left 5th proximal phalanx B) - Metatarsal, Left, left 5th metatarsal DIAGNOSIS (test code = f0gvsSWwCOSnt8waJLJfyP 3220) FuZzEwMzNcZnRuYmpcdWMx RUlobiEuRVjib2MbL1SiRu AwMFxhbnNpXGRlZmxhbmcx ZNWcLQB9rzZhTKRwHTfgZL DdYHkiDv4joHZnfEvgNoRv HQXzx1ivjqGFwyplnUn5f6 loWUNuHaE1kZTqYMojY2dc ugMdtIOkKNHgEFt1uJ72KX DuzM8efDCbECedscOzKyL0 WPokYQUvDoP1SLGglOHvQH GgG5fvFRJhKUmbPCRaLXll sYBqACH0fGqwj3X9gYVwsL LhbKkjKlYwPmIpCSSNh2Dg ILy3xJpsE0RdNEGoQtR7zK QgUGFyYWdyYXBoIEZvbnQ7 uA11DThgodZ1cDWut1Ivn9 7bs745wI5rsCDtWSG7AOFe SVAewBWqKSQgNQI4LKWbxB QcV5z5BeCtyVIwH4Q1RgVd xESbS5R6ZiCzbKUaB4B4Mi YxcKOrRPAejQKzOc0vbNDh eGQbmo5ruq16KID5v1MzbC uzHLW1IRF3CjSvUv8nxJWg AFYwVL4uMyZaxHVwODFyot 82lHxuQWaspyBqrW2eVdUj PGLmtYUcZPHePR8ipNBrXH ZguZ0mekdtAWAqWrElfoft JUUjvDasmwBaOp5sfGouYL A8RSaqI4jqhZ7kBzA1VEzj R0uysN5vHWs0EBzxnVD3BN VetA6sTD2kxyrxd0crKqTc KL1djpzcv7gqVjKeDE1vxg f1t5niVgDhJC6tkycfs9mz NzIwXGhlYWRlcnkwXGZvb3 IwlgmqIZUty2VsG0EdnSxa E25tkVkiN87mRCAxmEnpgE 0mzXjadS9dGaYbUxJdOApl bFxwbGFpblxmMVxmczIwXG hsnawmJWPqECljT7iiPbZy BCTrxGtnWIjbo9XrXAFmAH BvNlYpKB2zTd1MPZsgJBFU CXVUAGJJGTIURj2MTY5OXM JETUSCMR8XLHYYVZ7MO6h0 KLIrkqLwOIIfJSLVFG1uE0 xGAKAJXiYPBikXIJ4AGOPE UlRJTEFHRSBXSVRIIFNVUl FRMD1INC2JDZSDXNQLCVLN RCBDSFJPTklDIElORkxBTU 1BVElPTlxwYXJccGFyIEIu IEJPTkUsIExFRlQgRklGVE ggTUVUQVRBUlNBTCwgQklP UFNZOlxwYXIgICAgLSBBQ1 SWJXUYW5VOJ69BFYiDUJdG IFxwYXIgICAgLSBTRVBBUk KSAVPXBjFPOHYBBQWpJ7Zy FeeTDt3XS10EFFNUPDXNCQ MCN1PYSWCFAGVOGZHYK6IM I5SyEB0QB7EZK2eQYAQYZT BHUkFOVUxBVElPTiBUSVNT IQUyEe7SJSGIQC3FBTFtfn 24OLY9YhQph8X7TBQ4LNHs ICYsx3xnTNKxcIOsQqEaIx NcZnRuYmpcdWMxXGRlZmYw e4xlq378hGAsx3lpMUDsEl O4qWVvWSMzwPXiL596AHRf YEgfg0yzf2PcVWRvmAHha3 Q0HPGNbihvdMh2lUcpN41n f0A5TpjcE8bhKXXgHBGvL2 KcAV9aWXJxGmm5AYT4GLM7 JRCiYYAqQ3EiRY7gJAIgkC StKKo2b5denAbbPSRsQJT5 c8ebDFblhcVaHD3pni6xpX p2g5jwalMgCGQaAIGdqOEE PGVfO0CatGtoHe3gcZo3xS bqBisyNAO8Bev6PK2owg39 czt5oEblSGRweytgArP5XP sbAQDuakafCBd6REidDBTo qUN7CRMfnDUtW4HxWSLrWA 5yqqa4DSJ2WIudPXHqFaC0 NDBcaGVhZGVyeTcyMFxmb2 30OVA2QcXoCS7oK1Gyz0N3 rC6vaXEzEORuoJNgLzLmOP Kboq4afWSvKVyqm9RqUMM8 goE2cLLtsLUpHPUfCbZ0ZH tvMP3vkq85BFEqAZW1xo9l bGNccGdicmRyaGVhZFxwZ2 CcQLPwj860CVJmA2IqXWIt q6L2evNhPpMaJPRciCQ1xe D5RDWhJO3hexsjz8fdZCgr MMtoZHJvqvQ3diS8RBAxuY ChK6DnnK0tTNLnBM2fsyul s1smHRK8VWuxAEGzCES9Hm ObEXOqy8Vmtmu3YcXvi3Lt pGBpWJczS43mn462FOWwes FsT1tywTVvyolmfJEbwbhm FLcmucN3TDIpMRwfccqlUD HvWMruT2khBuPvGITvhBhe QHaoz4ZzQAUkTHPcSeKqiJ HeQYCsBnl5GQVybOKpBFMh XwCrA6tpgohwBuRFCQUgn1 clN1rdtFJQzFCkP9CuKTfc wnVmILmaJQpvFIO5EBA3Cb 81UcN5XONwct92 CPT Code(s) (test code e5pxbCBtWGIjrGQvLaOfMM = 3357) ZmJUOhb7sfWBHugMTnOzRk MzNcZnRuYmpcdWMxXGRlZm Vgw6vtx441hGUxy3bgYUPj LkL8bRDjRFEjwKVrG870b8 ljl3mdfdTmvRC5GKDcFQE3 QKugpqVramD0KImwzIKxFv Q4YVbwgeOpTWzazwXefbKy Nxc1NMVbA393IGH8gIcyf7 ivKNW6LYSrKHXxApTjOm7z kWNpS443CKLyWAIOOTQpsY r2UFRldnMyqmPaoOQGk552 C092m4pwIVKqirIsfXlBam tcg4byW369XYDakTXgziZt MlAeHDYloZIboXK9ZYIbEZ 6xcbpuUiSdZI7qmdsbVmZm XX5kmez3JrBdJG6jfaguAn UlHLclGXGojfkpGKUwe6Gi zbdoUS9sG9Wrh5R5nP6xrM OiPEGzlMQwDqLdAXWbyw5d sFHtBPhpg9VtIPK4miC7nX ToeDHoWQXoAA81Zuzdy8Oc WxhqZLP8JMGpszZcv4Fed8 gmPfBmxmDmX2daT1SgMMIf QDNiAWNhAiFcczPsn0Dkr1 FmxYLszPe2u3xxWHYaGTBy mFioh2lmODF3EDMnI6H0wC Epl3ljLCafRHWmiWM7eevb VKwdWOXjnsD3vrahMNptWF FkvLN7gwukHJzzEFXlSjK6 rvenUOwgONOfJEA4ACwod5 35RZJ6PHzbDqudYEjxBVEa bmNvbnRccGduZGVjXHBsYW luXHBsYWluXGYwXGZzMjRc iHwwnTfciV1bCoUwGeTeQB wiRG2vRAGuJ9vyhVKwVOCq JVEjX8woZsKloQ5wzVsrCR sfucWyUE4TS7Z5NJVtinC9 RJZmIoG7GghuSDNsOMzvQJ EgeDJccGFyfQ== CLINICAL HISTORY (test y8gmqXPwWXHofEZzEyCgNB code = 3356) CqWGOpp9ulODHguJAbLfCv MzNcZnRuYmpcdWMxXGRlZm Jqb1rse714aICyc9ghPAEl PdK1uTYtMNPnxEPrK213g7 btm3srmkPzfNP5TIRiCDT0 CWpqguIylcA3HWbvgKCoDy F2LGiyhoLuSYtrvmNspvLy Yfl9LNBmT999TMN8sAcqb5 pcQIK9KENqHGJrQwEhSa1x iLAvK011IKLaACTULUUrwQ u7MHVotcMdsaDwjMQRt842 I452b7zyYSJrvdTbsIrDjq vbq6nuP204LSDebWGnejMm CvBtZKUjrQXjuVG7PIYeKK 7vijoiAiLqRC7joacsZmOw UM4hxgx9NsIoAV4gxdczNa CxCYnqSTZbziqmOQUxp8Le utndMY0mG7Wah5Z1rB9nvD NuLTWyhEAiPrDyOYFyal2t eUZnSBvhd2UsCVX0ppG9jY AfeCTmOBQcFZ39Pxxff8Hf GxkdMTV4RFIvvsBtl9Gbt9 cbSyWvmzKdQ3ztC5OvBVHd PMJyUBHwNxSrphZpj0Nbg0 JtdTItkUm1d2dtHLAkTTMs eVsao9etIWM1LEBdN4V4xA Mzr7bjBDymKHNrjMR9njqb FPbpVXHsvoA7hbpxBEmcQV TjfDC8sndoIQupZWEvYoY5 bflvKZptXOSsCKH0ZZawp4 79DNI9GXrzDowoOEaxGIAd bmNvbnRccGduZGVjXHBsYW luXHBsYWluXGYwXGZzMjRc vRzrdEpjmS8iIaMfHbPzAR zjAV8hUQSsZ7ouwCRbORAh UXPtT1aaSgPfwU5kpOhwQK uknmInDA6lrDLcrSrfcVd1 kQEuc0CpmVSqgUF3qZzvsF R1KCWothIaxYtonRvpWJFe m5MdAjjqIWJwgzWeNEGpXV RccGFyfQ== SPECIMEN SOURCE (test s3chuKHbCNNncXDzIwKnIG code = 3377) RuUIGmx9fhFJUicJBlIqWv MzNcZnRuYmpcdWMxXGRlZm Qyx7zmu738tBSub5tlVUZo QiL5eSKhGHMlaZJnL116f4 jps0fnyrAnwBO3BFDfAKW1 EZvbarLqusV0WYdlpBCdEv F0ZWwiozFiDZsjiqUcucFn Fnt9JKWhN870WCV6dWuno8 vwPCX1HXLdLEXlMeClHy5x wWFcB062TTUcCIXZGFVwqE k7HLBowoMqwmSjrTTSy662 L808q1dyYIBrpoJqhHbSqu qmu1avI727ZZLmjZTvylGg WeSfISHgoMMuzSF6JLTlHQ 7csgqzDqEgKL3rtyolThBn ZR7mdzf6ViWyMG1dakqhYa HwQJhfFYCinwneRFPqw4Pi ebyrHN6fQ6Tyb4K5jT6nyJ XwILDcfECzIoJqTDBbqs8q iJQhPJooy9RkMWB7wzR6lO SmkNXtFWAvZG38Pldin7Og ZljgKQK0RBEntuCnf5Toe6 xySgVquvTfG6nrW5SqEOTi GEZkBKWkBnMiyaVst8Sos1 NeeLMfkDf9a8rvFYSlZFVt pJrcq9dqLNH9NFRrK1Q4wY Qsx9krBHbxDUXndAB0mauo ICrcPJUmjcN2wulcQAvcWP GboKE4sskmKVcoEVUoKnF1 mklqKOoqSDJlEEX8CXhfk8 46PFX2KXkiCortEOqsKIZm bmNvbnRccGduZGVjXHBsYW luXHBsYWluXGYwXGZzMjRc tOqctUdgvQ8dLfYoJrEbSI zvIC6fBMXsD7ffdXSaVIRu QYSgV7unYmZvtH3qjViiJS xmczIwIEEuIExlZnQgNXRo GZDlq5vslGBmDRBfIAbvza qbNIGsFZvgOiLmUIWpIC5d hNK1LGCdFNcyAMYzmt2= GROSS DESCRIPTION (test a2jmsSEnCPGkjAZgDiQgWN code = 3363) FuSQRta3txPXXqnJVaBwAy MzNcZnRuYmpcdWMxXGRlZm Ifw4ouu724hOKbt5rvUOBl NyA8lHUzAQBjoVXpH129BX FzETlyo7ehe5NiHWYkyPFy m4R9VKNXvgcjoSm9cUzeQ0 7ef0U2WhizV8hnBBGnTXPu T5CaEF9cKSUtKbd5TTS7OY K1WZUyBUFqW0WpES3kFITo uDIrXAu2s2xamDwjOTVfYB Z6x5akLWxdghXeSB0gth2g iAe7a3lpxiBxIIYkNTIdlX NSONIjJ9EivIiuDt9meEx0 zYiaKoalQQP8Hsr5FD8qyo 58fuo5lDbgQDPcfdngKqF3 YOecIVBjmwwnIAm0YGfwEF JnbDcyMFxtYXJncjcyMFxt YXJndDcyMFxtYXJnYjcyMF ziBJEmKFU5WFyjd359SSS2 PBqic4mba0ihyEMpOjf3XY AvTcAnIscgKPlts3Jss1di VANlxt5aYJM2jGArdWcja0 K3eYWsDBMezMTtuoRaXNBv CsP7MVerBE8rjx58EQMxMQ J6yg2xuITfuNbbwtFfmHQf IVjfS8MeRZRtf921YFCqT3 BbUSDko9V6hcMwKpArPXUl iBU7ptK3UVIxQAt9jMBgmv J7csSunSEuA2oifN73EvKv dZQgN8WalU65JzAzoMDxK4 JxmE44AvUvmHXfN7FoiS89 ZrMrgYOePOGxjESgFt0dlS BqmZXey6NguNZaFVejX73f l043UCDzynKsC4szhBAuer ajaMFucubjOIqqhpF3BFLl XHBsYWluXGYwXGZzMjBcbG FuZzEwMzNcaGljaFxmMFxk OjLuPKEnZWptC9evDpFpIz KxUFTZnDMmkF9hdjSFVFvp FSBpI2VitlZvBPddCUTehC L3oNPxVXraEyNhGSIjc2z2 fIU3vJQhhGH3oJWojOsnPQ 7vsVHoWB8pUF7fCWggFPio ncLwi2SjVB44uEAjnnJpfd QgZGVzaWduYXRlZCBhcyAi s95urZG5tXIstHSbIQ80yL PcNfsqQ57ql4hjuEIbb6Ns h8alpEIbtIArtM16VVWsoa NxSmXvH84clhVrYD3cMMP5 cmluZyAwLjcgeCAwLjMgeC RbAhZmL35fOMVfJNEonDEy vZ2takMozjEklWHslBX2QR WsYK94aNOjvMbokA54kbAJ CQEdnsYfxN52zqPrBJYdsQ Xnm4i1oWjtnt8upUTjVVTe cqJAyMIlxZ6axhFIPSrcJS HaN9UfmrDqFSnyKRDqpPX5 xNOqIJmbQpBwFIPmr7h6eG Z6xWZvgNT8pMJegSpvQG6w rBBnSR6pHW2cRIzmCKlruw Qrs7OxWF14tGZjfeAuglUx ZGVzaWduYXRlZCBhcyAibW F0XJSqtwJblUJgNQM8Ratm R08zj0rsiPBhz9IwCy78tp YwQSNxCyShg09wjSawg7Sb VIIzSKSac53oMODzWSvkMP 59znHjKYWzjXFypfylGh3i YHusSO42FJrlDF13ZWPsSW uaGNTuT9QaP5Z2XU3flSnv IHNwZWNpbWVuIGlzIGVudG qdHWk5WQtkqQVsvknrTEji czIwXGxhbmcxMDMzXGhpY2 yuHuEzJOUmrSuxSQpqc3Ac XQRmMWAnMjAoKyQdXE3rEU kjnR6aDSKuNCzfe17psLOp x20qKTCbJGcdHAOuBGFpDc BcbGFuZzEwMzNcaGljaFxm YJfgFfSdNMHzBBssR2haQa BcZnMyMCAgTUcvZXdccGFy fQ== MICROSCOPIC DESCRIPTION y9zwwXEmEETruWLaNgCeMM (test code = 3371) EiUPOto2riWLLygPMvNrNw MzNcZnRuYmpcdWMxXGRlZm Ade4qna838dHFjr7ipECDz OyD6wSBbVMHmqUMyI109b2 qft0lidrMijLQ2YKEkAWV5 QXdfvoJnilV1ZMgukEWoZn T6JNsseaRjRJlrygZbpqMw Yty4RQKoW198JCG2qAuzu4 pfPYZ1IWNwHLVxMjMiHx0s wYAtI798GTLzLZHIQVCgvX i5HNPunfNxbtYenNXLl740 Q090h2wkTFBdtbSceLcWuu fyf1ihP569XZZuyPIzzaKf HkYgXJUeeGBupJK9SEHnCV 0mgcupEtMiGD4xznavGoFk CE5tozt2OnQnTT8mjaooYc YyRSrpOPVqmyweIUJti5Xo ymcaJQ2kP8Uih8D2vX7oxH IdPPAwmWDoBxGqITHwsh5t oSCeTYejr7PjGAQ8auK8lN SctHZeQPGcLB81Edare2Zg TdotVYH7NBSafcKfr1Bxo5 gjPhVuxhSqS8klJ8UtKXBu BGVvNJWxRkBezvGxx4Yly8 UryWHxlBp9i0pcVSLqILJj nPqsv8mbNDP4LOAlI8H2wF Xzd4vxGLwxJVDvaDY2zxza TXunLPGgdaK9nhyzCDhpCJ GejMM8kbmaVNfmWLXjKtD3 bypqVJxdTGXdNTN9ZZwex3 88NWA3QYqzTqllPAejFSPp bmNvbnRccGduZGVjXHBsYW luXHBsYWluXGYwXGZzMjRc yBxmzCihoN2mVxLoNcOhMI zlZO6aZIRuJ3nxoEMrDLBz ZWRjU3rqLyLgpW5wkYvvWX qsrpWlREGhZx6kRVWhDw4e bWVkLlxwYXJ9 Gross assessment was [facility] performed at ([facility], Department = 2777) of Pathology, [address] [place] [address], Technical component was [facility] performed at ([facility], = 2778) Department of Pathology, [address] [place] [address], Professional component [facility] was performed at ([facility], Department code = 2779) of Pathology, [address] [place] [address], [facility] [id number] 10:21:00Surgical Pathology Report Case: [id number] Authorizing Provider: Tala Santacruz DPM Collected: 12/30/2019 01:38 PM Ordering Location: [address] Med/Surg Received: 12/31/2019 06:52 AM Pathologist: [...] TISSUE FORMATION Signing Pathologist Direct Phone Line: [phone] signed by Jovita Griffith MD on 01/04/2020 at 10:21 AMMG/[id number] of left 5th metatarsal, ulcer of bilateral [...] and into decal solution. MG/Veronica-B. Performed.[facility], Department of Pathology, [address] [place] [address], [facility], Department of Pathology, [address] [place] [address], [facility], Department of [facility]ology, [address] [place] [address], GAJZAPOSX [id number] 10:47:00 Test Item Value Reference Interpretation Comments [...] negative Staphylococcus SURGICALLY OBTAINED CULTURE + GRAM [id number] 08:31:00 Test Item Value Reference Range Interpretation Comments CULTURE (BEAKER) (test code No growth = 1095) GRAM STAIN RESULT (BEAKER) <1+ WBCs (test code = 1123) GRAM STAIN RESULT (BEAKER) No organisms seen (test code = 73509) SURGICALLY OBTAINED CULTURE + GRAM [id number] 08:19:00 Test Item Value Reference Interpretation Comments Range CULTURE (BEAKER) STENOTROPHOMONAS A 2+ Sten otrophomonas (test code = 1095) MALTOPHILIA maltophil ia Levofloxacin (test S code = 22) Trimethoprim + S Sulfamethoxazole (test code = 47) GRAM STAIN RESULT <1+ WBCs (BEAKER) (test code = 1123) GRAM STAIN RESULT No organisms seen (BEAKER) (test code = 110236) POC-Glucose [id number] 06:47:00 Test Item Value Reference Range Interpretation Comments POC-Glucose Meter (test 102 mg/dL 70-110 : TE STED AT [facility] code = 1538) [address] [place] [address]: Room Service Waiter/Techni artemio ID = [id number] for Anne Salgado Lab Interpretation (test Normal code = 20451-5) [facility] [id number] 06:47:00 Test Item Value Reference Range Interpretation Comments POC-GLUCOSE METER 102 mg/dL 70-110 : TESTED A T [facility] [address] (BEAKER) (test code [address], = 1538) [facility] [place] [address]: Room Service Waiter/Techni artemio ID = [id number] for Anne Busby Comprehensive metabolic [id number] 06:34:00 Test Item Value Reference Range Interpretation Comments Protein, Total (test 6.1 See_Comment [Autom ated code = 2885-2) message] The system which generated this result transmit merna reference range : 6.0 - 8.5 gm/dL . The reference range was not u sed to interpret th is result as normal/abnormal . Albumin (test code = 2.3 g/dL 3.5-5 L 46485-7) Alkaline Phosphatase 81 U/L 30-115 (test code = 6768-6) Total Bilirubin (test 0.4 mg/dL 0.1-1.2 code = 1975-2) Sodium (test code = 137 meq/L 956-358 9334-2) Potassium (test code 3.7 meq/L 3.6-5.5 = 2823-3) Chloride (test code = 100 meq/L 98-106 2075-0) CO2 (test code = 28 meq/L 20-29 2028-9) BUN (test code = 14 mg/dL 10-26 3094-0) Creatinine (test code 2.31 mg/dL 0.5-1.2 H = 2160-0) Glucose (test code = 100 mg/dL 70-110 2345-7) Calcium (test code = 7.5 mg/dL 8.5-10.5 L 41376-2) AST (test code = 15 U/L 5-40 1920-8) ALT (test code = 6 U/L 5-50 1742-6) EGFR (test code = 21 mL/min/1[place]73 [place] [address]-9) NOT ACCURATE CREATININE CLEARANCE IN PREDICTING GLOMERULAR FILTRATION RATE . ESTIMATED GFR I S NOT APPLICABLE FOR DIALYSIS PATIEN ZIA (test code = ZIA) Room Service Waiter ID - ADMIN Lab Interpretation Abnormal (test code = 65209-0) [facility] [id number] 06:34:00 Test Item Value Reference Range Interpretation [...] S NOT APPLICABLE FOR DIALYSIS PATIEN TS. Room Service Waiter ID - ADMINCBC with platelet count + automated [id number] 06:06:00 Test Item Value Reference Range Interpretation Comments WBC (test code = 6690-2) 5.7 See_Comment [A utomated message] The system [employer] generated this result transmitted ref erence range: 4.0 - 10 .0 K/L. The refe rence range was not u sed to interpret this result as normal/abnor mal. RBC (test code = 789-8) 2.41 See_Comment L [Au tomated message] The system [employer] generated this result transmitted ref erence range: 4.00 - 5 .00 M/L. The refe rence range was not u sed to interpret this result as normal/abnor mal. MCHC (test code = 786-4) 30.8 See_Comment L [A utomated message] The system [employer] generated this result transmitted ref erence range: [...] L [Aut omated message] 777-3) The system [employer] generated this result transmitted ref erence range: 150 - 43 0 K/CU MM. The referen ce range was not u sed to interpret this result as normal/abnor mal. MPV (test code = 10.5 fL 6-11.5 96657-6) nRBC (test code = 413) 0 See_Comment [Aut omated message] The system [employer] generated this result transmitted ref erence range: [...] See_Comment [Aut omated message] 670) The system [employer] generated this result transmitted ref erence range: 1.80 - 8 .00 K/L. The refe rence range was not u sed to interpret this result as normal/abnor mal. # Lymphs (test code = 1.66 See_Comment [Auto mated message] 414) The system [employer] generated this result transmitted ref erence range: 1.48 - 4 .50 K/L. The refe rence range was not u sed to interpret this result as normal/abnor mal. # Monos (test code = 0.28 See_Comment [Autom ated message] 415) The system [employer] generated this result transmitted ref erence range: 0.00 - 1 .30 K/L. The refe rence range was not u sed to interpret this result as normal/abnor mal. # Eos (test code = 416) 0.12 See_Comment [Au tomated message] The system [employer] generated this result transmitted ref erence range: 0.00 - 0 .50 K/L. The refe rence range was not u sed to interpret this result as normal/abnor mal. # Baso (test code = 417) 0.07 See_Comment [A utomated message] The system [employer] generated this result transmitted ref erence range: 0.00 - 0 .20 K/L. The refe rence range was not u sed to interpret this result as normal/abnor mal. Immature 0 % 0-0 Granulocytes-Relative (test code = 2801) Lab Interpretation (test Abnormal code = 79786-5) [facility] W/PLT COUNT & AUTO [id number] 06:06:00 Test Item Value Reference Range Interpretation [...] PERCENT (BEAKER) (test code = 2801) POCT-GLUCOSE [id number] 21:02:00 Test Item Value Reference Range Interpretation Comments POC-GLUCOSE METER 167 mg/dL 70-110 H : TESTED A T [facility] [address] (BEAKER) (test code [facility] [address], = 1538) [place] [id number]: Room Service Waiter/Techni artemio ID = [id number] for Ashley austin Anne POCT-GLUCOSE [id number] 18:12:00 Test Item Value Reference Range Interpretation Comments POC-GLUCOSE METER 121 mg/dL 70-110 H : TESTED A T [facility] [address] (BEAKER) ([facility], = 1538) [place] [address]4828: Room Service Waiter/Techni artemio ID = [id number] for Cortney Cohen POCT-GLUCOSE [id number] 11:54:00 Test Item Value Reference Range Interpretation Comments POC-GLUCOSE METER 117 mg/dL 70-110 H : TESTED A T [facility] [address] (BEAKER) (test code [address], = 1538) [facility] [place] [address]: Room Service Waiter/Techni artemio ID = [id number] for Cortney Cohen COMPREHENSIVE METABOLIC [id number] 06:47:00 Test Item Value Reference Range Interpretation [...] S NOT APPLICABLE FOR DIALYSIS PATIEN TS. Room Service Waiter ID - [id number] 06:42:00 Test Item Value Reference Range Interpretation Comments Magnesium (test code = 1.6 mg/dL 1.5-3 87813-8) ZIA (test code = ZIA) Room Service Waiter ID - ADMIN Lab Interpretation (test Normal code = 60435-7) [facility] [id number] 06:42:00 Test Item Value Reference Range Interpretation Comments POC-GLUCOSE METER 101 mg/dL 70-110 : TESTED A T [facility] [address] (BEAKER) (test code [address], = 1538) [facility] [place] [address]: Room Service Waiter/Techni artemio ID = [id number] for Anne Busby [id number] 06:42:00 Test Item Value Reference Range Interpretation Comments MAGNESIUM (BEAKER) (test code = 1.6 mg/dL 1.5-3.0 627) Room Service Waiter ID - ADMINCBC W/PLT COUNT & AUTO [id number] 06:37:00 Test Item Value Reference Range Interpretation [...] PERCENT (BEAKER) (test code = 2801) POCT-GLUCOSE [id number] 20:24:00 Test Item Value Reference Range Interpretation Comments POC-GLUCOSE METER 155 mg/dL 70-110 H : TESTED A T [facility] 1317 (BEAKER) (test code [facility] NT [facility], = 1538) [facility] [address]: Room Service Waiter/Techni artemio ID = [id number] for Anne Busby POCT-GLUCOSE [id number] 16:39:00 Test Item Value Reference Range Interpretation Comments POC-GLUCOSE METER 164 mg/dL 70-110 H : Notified RN/MD: TESTED (BEAKER) (test code AT [facility] [address] = 1538) [facility] [address]: Room Service Waiter/Techni artemio ID = [id number] for Alondra Kelley SARS-CoV2/RT-PCR (Asymptomatic ONLY)2019-12-30 15:57:00 Test Item Value Reference Range Interpretation Comments SARS-COV2/RT-PCR Negative Not Detected, (test code = Negative, See 47059-5) external report for linked test SARS-COV-2 [facility] PERFORMING [facility] (test code = 32465-0) ZIA (test code = Negative result for [...] of the Act. Fact Sheet for Healthcare Providers:https://www.[employer]/sites/default/f loco/product/documents/F act_Sheet_HC_Providers_L fhv_BAOX-FoT-3.pdf Fact Sheet for Healthcare Patients:https://www.[employer].Feedback-Machine/sites/default/fi les/product/documents/Fa ct_Sheet_Patients_Lyra_S ARS-CoV-2.pdf Performing Laboratory:[facility] [place] [address] [facility] ([facility])2019-12-30 15:57:00 Test Item Value Reference Range Interpretation Comments SARS-COV2/RT-PCR (test Negative Not Detected, Negative, code = 4900720) See external report for linked test SARS-COV-2 PERFORMING LAB [facility] (test code = 9606000) Negative result for this test determines that [...] 564(g) of the Act.Fact Sheet for Healthcare Providers:https://www.[employer].Feedback-Machine/sites/default/files/product/documents/Fact_Shee q_DI_Mtpewhkhq_Afxl_FOQH-FcL-7.pdfFact Sheet for Healthcare Patients:https://www.[employer].Feedback-Machine/sites/default/files/product/ documents/Uyfr_Wzwxf_Iytfxqip_Mqvv_WAQB-CmY-0.pdfPerforming Laboratory:[facility], [place] [address]MQHX-GUKECOS METER 2019-12-30 11:50:00 Test Item Value Reference Range Interpretation Comments POC-GLUCOSE METER 82 mg/dL 70-110 : Notified RN/MD: TESTED (ROBERT) (test code = AT [facility] [address] [place] [address]) [facility] [address]: Room Service Waiter/Techni artemio ID = [id number] for Alondra Kelley WOUND CULTURE + GRAM [id number] 10:45:00 Test Item Value Reference Interpretation Comments [...] gram negative (BEAKER) (test code rods = 883929) POCT-GLUCOSE [id number] 05:50:00 Test Item Value Reference Range Interpretation Comments POC-GLUCOSE METER 103 mg/dL 70-110 : Notified RN/MD: TESTED (BEAKER) (test code AT [place] [address] [address] = 1538) [facility] [address]: Room Service Waiter/Techni artemio ID = [id number] for Zonia Healy COMPREHENSIVE METABOLIC [id number] 05:44:00 Test Item Value Reference Range Interpretation [...] S NOT APPLICABLE FOR DIALYSIS PATIEN TS. Room Service Waiter ID - ADMINCBC W/PLT COUNT & AUTO [id number] 05:29:00 Test Item Value Reference Range Interpretation [...] PERCENT (BEAKER) (test code = 2801) POCT-GLUCOSE [id number] 21:21:00 Test Item Value Reference Range Interpretation Comments POC-GLUCOSE METER 185 mg/dL 70-110 H : Notified RN/MD: TESTED (BEAKER) (test code AT [facility] [address] [address] = 1538) [place] [address]: Room Service Waiter/Techni artemio ID = [id number] for Zonia Healy POCT-GLUCOSE [id number] 11:21:00 Test Item Value Reference Range Interpretation Comments POC-GLUCOSE METER 143 mg/dL 70-110 H : Notified RN/MD: TESTED (BEAKER) (test code AT [facility] [address] [address] = 1538) [place] [address]: Room Service Waiter/Techni artemio ID = [id number] for Alondra Kelley COMPREHENSIVE METABOLIC [id number] 06:27:00 Test Item Value Reference Range Interpretation [...] S NOT APPLICABLE FOR DIALYSIS PATIISA TS. Room Service Waiter ID - ADMINPOCT-GLUCOSE [id number] 06:21:00 Test Item Value Reference Range Interpretation Comments POC-GLUCOSE METER 73 mg/dL 70-110 : Notified RN/MD: TESTED (BEAKER) (test code = AT [facility] [address]) [facility] [address]: Room Service Waiter/Techni artemio ID = [id number] for Zonia Healy CBC W/PLT COUNT & AUTO [id number] 06:00:00 Test Item Value Reference Range Interpretation [...] PERCENT (BEAKER) (test code = 2801) POCT-GLUCOSE [id number] 20:48:00 Test Item Value Reference Range Interpretation Comments POC-GLUCOSE METER 84 mg/dL 70-110 : Notified RN/MD: TESTED (BEAKER) (test code = AT [address] [address]) [facility] [address]: Room Service Waiter/Techni artemio ID = [id number] for Zonia Healy POCT-GLUCOSE [id number] 17:51:00 Test Item Value Reference Range Interpretation Comments POC-GLUCOSE METER 59 mg/dL 70-110 L : TESTED A T [facility] [address] ([facility]) (test code = [address], [address]) [place] [address]: Room Service Waiter/Techni artemio ID = [id number] for Christina Lea osbornee POCT-GLUCOSE [id number] 13:28:00 Test Item Value Reference Range Interpretation Comments POC-GLUCOSE METER 67 mg/dL 70-110 L : TESTED A T [facility] [address] (BEAKER) (test code = [address], 1538) [place] [address]: Room Service Waiter/Techni artemio ID = [id number] for Christina r, Berta POCT-GLUCOSE [id number] 06:04:00 Test Item Value Reference Range Interpretation Comments POC-GLUCOSE METER 94 mg/dL 70-110 : TESTED A T [facility] [address] (BEAKER) (test code = [address], 1538) [place] [address]: Room Service Waiter/Techni artemio ID = [id number] for Anahi Sherman COMPREHENSIVE METABOLIC [id number] 05:35:00 Test Item Value Reference Range Interpretation [...] S NOT APPLICABLE FOR DIALYSIS PATIEN TS. Room Service Waiter ID - ADMINCBC W/PLT COUNT & AUTO [id number] 04:56:00 Test Item Value Reference Range Interpretation [...] PERCENT (BEAKER) (test code = 2801) POCT-GLUCOSE [id number] 20:43:00 Test Item Value Reference Range Interpretation Comments POC-GLUCOSE METER 137 mg/dL 70-110 H : TESTED A T [facility] [address] (BEAKER) (test code [address], = 1538) [facility] [address]: Room Service Waiter/Techni artemio ID = [id number] for Anahi Sherman MR, EXTREMITY, LOWER, WITHOUT CONTRAST, [id number] 16:55:00MRI LEFT FOOT.Unlisted Reason for Exam - [...] MDReport Verified Date/Time: 12/27/2019 16:55:07 Reading Location: [facility] Radiology Reading Room MR lower extremity without IV contrast left [id number] 16:55:00Interface, External Ris In - 12/27/2019 4:57 [...] Ring Verified Date/Time: 12/27/2019 16:55:07 Reading Location: [facility] Radiology Reading Room Electronically signed by: Adrienne CHU 12/27/2019 04:55 [facility] [id number] 14:19:00 Test Item Value Reference Range Interpretation Comments POC-GLUCOSE METER 232 mg/dL 70-110 H : TESTED A T [facility] 1317 (BEAKER) (test code [address], = 1538) [facility] 77 478: Room Service Waiter/Techni artemio ID = [id number] for Christian rBerta CT, CTA AAA, W/ GÓMEZ.EXT.VRZDIG5375-45-40 11:38:00Bilateral lower extremities Addendum BeginsREPORT STATUS:A I agree with the nonvascular findings with exceptions and emphasis as below:*Moderate right and small left pleural effusions are partially visualized.*Large volume ascites.*Diffuse anasarca*The reflux of contrast into the hepatic veins is concerning for volume overload. Signed: Molly Linares MDRtieraort Verified Date/Time: 12/27/2019 11:38:28 Reading Location: [facility] Diagnostic Imaging Reading Room - [facility] F1 [address]Addendum EndsFINAL REPORT CT angiography of the abdominal aorta and runoff, 26-Dec-19 INDICATION: This is a 64 year old female with with lower leg penetrating trauma presents for assessment. TECHNIQUE: Spiral acquisition before and during intravenous contrast administration using a Aditazz multidetector CT scanner. Images were obtained before [...] identified. However, significant calcification identified of the [place] left SFA, for example at image 516, [...] the right popliteal artery is patent, with tcdv-dm-ssrinppq diffuse calcification identified with no obstructive lesion [...] However, in the distal left SFA, the [place] artery substantial calcification identified and the stent [...] atherosclerosis identified. 4. In the right, the [place] right SFA is not filled by contrast [...] dictated regarding the non-vascular findings by the Cupola Tapper Helper Radiologist. Signed: Shlomo Dockery MDReport Verified Date/Time: 12/27/2019 07:59:51 Reading Location: [place] [address] [address] Reading Room Protein electrophoresis, serum 2019-12-27 [...] as normal/abnormal . ZIA (test code = Room Service Waiter ID - ZIA) LEONIE Jay Lab Interpretation Abnormal (test code = 02029-8) [facility] JosePROTEIN ELECTROPHORESIS, [id number] 09:29:00 Test Item Value Reference Range Interpretation [...] chronic inflammatory response. No monoclonal bands detected. [id number] Rocio Galindo MD (BEAKER) (test code = (electronic signature) 2616) PROTEIN TOTAL SERUM, 6.3 gm/dL 6.0-8.3 SPEP (ROBERT) (test code = 2660) Room Service Waiter ID - LEONIE OLIVEIRA AAA and [id number] 07:59:00Interface, External Ris In - 12/27/2019 11:40 AM CDTAddendum BeginsREPORT STATUS:A I agree with the nonvascular findings with exceptions and emphasis as below:*Moderate right andsmall left pleural effusions are partially visualized.*Large volume ascites.*Diffuse anasarca*The reflux of contrast into the hepatic veins is concerning for volume overload. Signed: Junior Linaresy MDReport Verified Date/Time: 12/27/2019 11:38:28 Reading Location: [facility] Diagnostic Imaging Reading Room - [place] [address] [address] REPORT CT angiography of the abdominal aorta and runoff, 26-Dec-19 INDICATION: This is a 64 year old female with with lower leg penetrating trauma presents for assessment. TECHNIQUE: Spiral acquisition before and during intravenous contrast administration using a Aditazz multidetector CT scanner. Images were obtained before [...] identified. However, significant calcification identified of the [place] left SFA, for example at image 516, [...] the right popliteal artery is patent, with aqen-vo-owsnwktf diffuse calcification identified with no obstructive lesion [...] However, in the distal left SFA, the [place] artery substantial calcification identified and the stent [...] atherosclerosis identified. 4. In the right, the [place] right SFA is not filled by contrast [...] dictated regarding the non-vascular findings by the Cupola Tapper Helper Radiologist. Signed: Shlomo Dockery MDReport Verified Date/Time: 12/27/2019 07:59:51 Reading Location: [place] [address] [address] Reading Room [facility] [id number] 06:56:00 Test Item Value Reference Range Interpretation Comments POC-GLUCOSE METER 39 mg/dL 70-110 LL : Notified RN/: [facility] (test code = AT [facility] L 1317 [facility] 1538) [facility] [address]: Room Service Waiter/Techni artemio ID = [id number] for Anahi Sherman COMPREHENSIVE METABOLIC [id number] 06:15:00 Test Item Value Reference Range Interpretation [...] S NOT APPLICABLE FOR DIALYSIS PATIEN TS. Room Service Waiter ID - ADMINPOCT-GLUCOSE [id number] 06:01:00 Test Item Value Reference Range Interpretation Comments POC-GLUCOSE METER 55 mg/dL 70-110 L : Notified RN/MD: TESTED (BEAKER) (test code = AT SLS L 1317 [facility] 1538) [facility] [address]: Room Service Waiter/Techni artemio ID = [id number] for Anahi Sherman CBC W/PLT COUNT & AUTO [id number] 05:44:00 Test Item Value Reference Range Interpretation [...] PERCENT (BEAKER) (test code = 2801) POCT-GLUCOSE [id number] 21:03:00 Test Item Value Reference Range Interpretation Comments POC-GLUCOSE METER 278 mg/dL 70-110 H : Notified RN/MD: TESTED (BEAKER) (test code AT [address] = 1538) [facility] [address]: Room Service Waiter/Techni artemio ID = [id number] for Anahi Sherman POCT-GLUCOSE [id number] 16:53:00 Test Item Value Reference Range Interpretation Comments POC-GLUCOSE METER 70 mg/dL 70-110 : TESTED A T [facility] [address] (BEAKER) (test code = [address], 1538) [place] [address]: Room Service Waiter/Techni artemio ID = [id number] for Nalini Jean Baptiste POCT-GLUCOSE [id number] 12:11:00 Test Item Value Reference Range Interpretation Comments POC-GLUCOSE METER 97 mg/dL 70-110 : TESTED A T [facility] [address] (BEAKER) (test code = [address], 1538) [place] [address] 478: Room Service Waiter/Techni artemio ID = [id number] for Nalini Jean Baptiste POCT-GLUCOSE [id number] 06:21:00 Test Item Value Reference Range Interpretation Comments POC-GLUCOSE METER 71 mg/dL 70-110 : TESTED A T [facility] [address] (BEAKER) (test code = [address], 1538) [place] [address]: Room Service Waiter/Techni artemio ID = [id number] for Holly Alamo COMPREHENSIVE METABOLIC [id number] 05:50:00 Test Item Value Reference Range Interpretation [...] S NOT APPLICABLE FOR DIALYSIS PATIEN TS. Room Service Waiter ID - ADMINCBC W/PLT COUNT & AUTO [id number] 05:17:00 Test Item Value Reference Range Interpretation [...] (BEAKER) (test code = 2801) Prepare Leuko-Red [id number] 23:54:00 Test Item Value Reference Range Interpretation Comments CROSSMATCH (test code = 2264) COMPATIBLE Unit ABO (test code = O Pos 5656085) UNIT NUMBER (test code = [id number] 934-0) Status (test code = 8295891) IN_[facility] Blood Bank Product (test code RED BLOOD CELLS = 2263) PRODUCT CODE (test code = T9887H44 933-2) [facility] JosePOCT-GLUCOSE [id number] 21:03:00 Test Item Value Reference Range Interpretation Comments POC-GLUCOSE METER 87 mg/dL 70-110 : TESTED A T [facility] [address] (BEAKER) (test code = [address], 1538) [place] [address]28: Room Service Waiter/Techni artemio ID = [id number] for Nwad iufu, Holly POCT-GLUCOSE [id number] 17:12:00 Test Item Value Reference Range Interpretation Comments POC-GLUCOSE METER 79 mg/dL 70-110 : TESTED A T [facility] [address] (BEAKER) (test code = [address], 1538) [place] [address] 478: Room Service Waiter/Techni artemio ID = [id number] for Akhil rs, Rachelleea POCT-GLUCOSE [id number] 11:37:00 Test Item Value Reference Range Interpretation Comments POC-GLUCOSE METER 262 mg/dL 70-110 H : TESTED A T [facility] [address] (BEAKER) (test code [address], = 1538) [facility] [place] 77 [address]: Room Service Waiter/Techni artemio ID = [id number] for Nalini Jean Baptiste COMPREHENSIVE METABOLIC [id number] 06:29:00 Test Item Value Reference Range Interpretation [...] S NOT APPLICABLE FOR DIALYSIS PATIEN TS. Room Service Waiter ID - ADMINCBC W/PLT COUNT & AUTO [id number] 06:12:00 Test Item Value Reference Range Interpretation [...] PERCENT (BEAKER) (test code = 2801) POCT-GLUCOSE [id number] 06:09:00 Test Item Value Reference Range Interpretation Comments POC-GLUCOSE METER 83 mg/dL 70-110 : Notified RN/MD: TESTED (BEAKER) (test code = AT [address] L [address]) [facility] [address]: Room Service Waiter/Techni artemio ID = [id number] for Anahi Sherman POCT-GLUCOSE [id number] 16:26:00 Test Item Value Reference Range Interpretation Comments POC-GLUCOSE METER 182 mg/dL 70-110 H : Notified RN/MD: TESTED (BEAKER) (test code AT [facility] [address] = 1538) [facility] [address]: Room Service Waiter/Techni artemio ID = [id number] for Alondra Kelley, [id number] 09:17:00 Test Item Value Reference Range Interpretation Comments Rh Factor (test code = POS 2589) ABO Grouping (test code O PINK TOP 12/24/19 @ 08 = 2588) [facility] JoseType and screen, [id number] 07:31:00 Test Item Value Reference Range Interpretation Comments ABO/RH AUTOMATED (BEAKER) (test O POSITIVE ECHO code = 2260) Ab Scrn (test code = 890-4) NEGATIVE ECHO [facility] JoseCOMPREHENSIVE METABOLIC [id number] 06:42:00 Test Item Value Reference Range Interpretation [...] S NOT APPLICABLE FOR DIALYSIS PATIEN TS. Room Service Waiter ID - ADMINPOCT-GLUCOSE [id number] 06:23:00 Test Item Value Reference Range Interpretation Comments POC-GLUCOSE METER 88 mg/dL 70-110 : TESTED A T [facility] [address] (BEAKER) (test code = [address], 1538) [facility] 77 [address]: Room Service Waiter/Techni artemio ID = [id number] for Anne Busby CBC W/PLT COUNT & AUTO [id number] 06:23:00 Test Item Value Reference Range Interpretation [...] PERCENT (BEAKER) (test code = 2801) POCT-GLUCOSE [id number] 21:38:00 Test Item Value Reference Range Interpretation Comments POC-GLUCOSE METER 126 mg/dL 70-110 H : TESTED A T [facility] [address]17 (BEAKER) (test code [address] [facility] [address], = 1538) [facility] 77 [address]: Room Service Waiter/Techni artemio ID = [id number] for Anne Busby POCT-GLUCOSE [id number] 16:54:00 Test Item Value Reference Range Interpretation Comments POC-GLUCOSE METER 89 mg/dL 70-110 : Notified RN/MD: TESTED (BEAKER) (test code = AT SLS L [address]) [facility], [facility] [address]: Room Service Waiter/Techni artemio ID = [id number] for Alondra Kelley MR, EXTREMITY, LOWER, JOINT, WITHOUT CONTRAST, [id number] 16:10:00Unlisted Reason for Exam - Click Yes [...] Jordan Verified Date/Time: 12/23/2019 16:10:32 Reading Location: [address] Ortho Consult Reading Room MR lower extremity joint only without IV contrast left [id number] 16:10:00Interface, External Ris In - 12/23/2019 4:12 [...] Jordan Verified Date/Time: 12/23/2019 16:10:32 Reading Location: [facility] C013X Ortho Consult Reading [facility], BRA[facility], WITHOUT [id number] 15:43:00Unlisted Reason for Exam - Click Yes [...] Date/Time: 12/23/2019 15:43:24 MR brain without IV [id number] 15:43:00Interface, External Ris In - 12/23/2019 3:45 [...] Berta Muniz Verified Date/Time: 12/23/2019 15:43:24 [facility])2019-12-23 14:16:00 Test Item Value Reference Range Interpretation Comments SARS-COV2/RT-PCR (test Negative Not Detected, Negative, code = 2964783) See external report for linked test SARS-COV-2 PERFORMING LAB [facility] (test code = 7041228) Negative result for this test determines that [...] 564(g) of the Act.Fact Sheet for Healthcare Providers:https://www.Sav[employer]/sites/default/files/product/documents/Fact_Shee p_YU_Edosjdonh_Nhuf_BAPL-WaO-2.pdfFact Sheet for Healthcare Patients:https://www.[employer]/sites/default/files/product/ documents/Yqbm_Apmuc_Jskbfsmi_Wivp_IKZW-WoB-1.pdfPerforming Laboratory:[facility], [place] [address]Rnuoo / lambda light chains, [id number] 12:25:00 Test Item Value Reference Interpretation Comments Range [place] Lt Chain,Free 474.4 mg/L 3.3-19.4 H (test code = 15717-6) Lambda Lt 225.6 mg/L 5.7-26.3 H Chain,Free (test code = 32937-4) [place]/Lambda,Free 2.1 0.26-1.65 H Free annabelle a/lambda (test code = ratio in serum of 5782648) normal individu als is 0.26-1.65. Excessproductio n [...] (test code = Performing Lab ZIA) [facility] [address] [place] [address] Jaguar Stein MD, PhD, CORI Lab Interpretation Abnormal (test code = 61466-3) [facility] JosePOCT-GLUCOSE [id number] 11:27:00 Test Item Value Reference Range Interpretation Comments POC-GLUCOSE METER 189 mg/dL 70-110 H : Notified RN/MD: TESTED (ROBERT) (test code AT [facility] [address] = 1538) JAYNAJoe [facility] [address]: Room Service Waiter/Techni artemio ID = [id number] for Alondra Kelley ARTERIAL DOPPLER LEGS, [id number] 11:22:00Reason for exam:->non healing ulcer , non [...] MDReport Verified Date/Time: 12/23/2019 11:22:31 Reading Location: [facility] Radiology Reading Room Arterial Doppler Legs [id number] 11:22:00 Interface, External Ris In - 12/23/2019 [...] MDReport Verified Date/Time: 12/23/2019 11:22:31 Reading Location: [facility] Radiology Reading Room [facility] CenterCOMPREHENSIVE METABOL[facility] [id number] 04:44:00 Test Item Value Reference Range Interpretation [...] S NOT APPLICABLE FOR DIALYSIS PATIEN TS. Room Service Waiter ID - ADMINCBC W/PLT COUNT & AUTO [id number] 04:35:00 Test Item Value Reference Range Interpretation [...] H PERCENT (BEAKER) (test code = 2801) [id number] 04:29:00 Test Item Value Reference Range Interpretation Comments Ammonia (test code = 36 See_Comment [Autom ated 32405-5) message] The system which generated this result transmit merna reference range : 17 - 80 mol/L . The reference range was not u sed to interpret th is result as normal/abnormal . ZIA (test code = ZIA) Room Service Waiter ID - ADMIN Lab Interpretation Normal (test code = 00276-1) [facility] JoseAMMONIA2020-09-24 04:29:00 Test Item Value Reference Range Interpretation Comments AMMONIA (BEAKER) (test code = 348) 36 mol/L 17-80 Room Service Waiter ID - ADMINPOCT-GLUCOSE [id number] 20:45:00 Test Item Value Reference Range Interpretation Comments POC-GLUCOSE METER 95 mg/dL 70-110 : TESTED A T [facility] [address] (BEAKER) (test code = [address], 1538) [place] [address]: Room Service Waiter/Techni artemio ID = [id number] for Anne Busby POCT-GLUCOSE [id number] 17:08:00 Test Item Value Reference Range Interpretation Comments POC-GLUCOSE METER 107 mg/dL 70-110 : TESTED A T [facility] [address] (BEAKER) (test code [address], = 1538) [place] [address]: Room Service Waiter/Techni artemio ID = [id number] for Jordyn Fonseca POCT-GLUCOSE [id number] 11:55:00 Test Item Value Reference Range Interpretation Comments POC-GLUCOSE METER 135 mg/dL 70-110 H : TESTED A T [facility] [address] (BEAKER) (test code [address], = 1538) [place] [address]: Room Service Waiter/Techni artemio ID = [id number] for Jordyn Fonseca ROGER Titer & [id number] 11:40:00 Test Item Value Reference Range Interpretation Comments ROGER Titer (test code = 66077-1) 1:40 ROGER Pattern (test code = 1781) Speckled [facility] JoseAnti-Nuclear Antibody (ROGER)2019-12-22 11:40:00 Test Item Value Reference Range Interpretation Comments ROGER (test code = 22472-6) Positive Negative A ZIA (test code = ZIA) Test performed by IFA method. Lab Interpretation (test Abnormal code = 52426-0) [facility] JoseANTI-NUCLEAR ANTIBODY (ROGER)2019-12-22 11:40:00 Test Item Value Reference Range Interpretation Comments ANTI-NUCLEAR ANTIBODY (ROGER) (BEAKER) Positive Negative A (test code = 418) Test performed by IFA method.ROGER TITER AND [id number] 11:40:00 Test Item Value Reference Range Interpretation Comments ROGER TITER (BEAKER) (test code = :40 1541) ROGER PATTERN (BEAKER) (test code = Spe[place]led 1781) POCT-GLUCOSE [id number] 06:44:00 Test Item Value Reference Range Interpretation Comments POC-GLUCOSE METER 92 mg/dL 70-110 : TESTED A T [facility] [address] (BEAKER) (test code = [address], 1538) [facility] [address]: Room Service Waiter/Techni artemio ID = [id number] for Anne Busby COMPREHENSIVE METABOLIC [id number] 06:35:00 Test Item Value Reference Range Interpretation [...] S NOT APPLICABLE FOR DIALYSIS PATIEN TS. Room Service Waiter ID - ADMINCBC W/PLT COUNT & AUTO [id number] 06:16:00 Test Item Value Reference Range Interpretation [...] PERCENT (BEAKER) (test code = 2801) POCT-GLUCOSE [id number] 20:38:00 Test Item Value Reference Range Interpretation Comments POC-GLUCOSE METER 85 mg/dL 70-110 : TESTED A T [facility] [address] (BEAKER) (test code = [address], 1538) [place] [address]: Room Service Waiter/Techni artemio ID = [id number] for Anne Busby POCT-GLUCOSE [id number] 18:14:00 Test Item Value Reference Range Interpretation Comments POC-GLUCOSE METER 112 mg/dL 70-110 H : TESTED A T [facility] [address] (BEAKER) (test code [address], = 1538) [place] [address]: Room Service Waiter/Techni artemio ID = [id number] for Berta Servin POCT-GLUCOSE [id number] 13:00:00 Test Item Value Reference Range Interpretation Comments POC-GLUCOSE METER 77 mg/dL 70-110 : TESTED A T [facility] [address] (BEAKER) (test code = [address], 1538) [place] [address]: Room Service Waiter/Techni artemio ID = [id number] for Berta Servin POCT-GLUCOSE [id number] 07:32:00 Test Item Value Reference Range Interpretation Comments POC-GLUCOSE METER 60 mg/dL 70-110 L : TESTED A T [facility] [address] (BEAKER) (test code = [address], 1538) [place] [address]: Room Service Waiter/Techni artemio ID = [id number] for Sanjay Pageshellievanessa COMPREHENSIVE METABOLIC [id number] 06:11:00 Test Item Value Reference Range Interpretation [...] S NOT APPLICABLE FOR DIALYSIS PATIEN TS. Room Service Waiter ID - ADMINC-Reactive [id number] 06:06:00 Test Item Value Reference Range Interpretation Comments CRP (test code = 676) 1.63 mg/dL 0-0.5 H ZIA (test code = ZIA) Room Service Waiter ID - ADMIN Lab Interpretation (test Abnormal code = 27906-7) [facility] JoseC-REACTIVE [id number] 06:06:00 Test Item Value Reference Range Interpretation Comments C-REACTIVE PROTEIN (BEAKER) (test 1.63 mg/dL 0.00-0.50 H code = 676) Room Service Waiter ID - ADMINPOCT-GLUCOSE [id number] 06:04:00 Test Item Value Reference Range Interpretation Comments POC-GLUCOSE METER 56 mg/dL 70-110 L : Notified RN/MD: TESTED (BEAKER) (test code = AT [address]LS L [address]) [facility] [address]: Room Service Waiter/Techni artemio ID = [id number] for Nelda Abdi CBC W/PLT COUNT & AUTO [id number] 05:53:00 Test Item Value Reference Range Interpretation [...] (BEAKER) (test code = 2801) U/S, ABDOMINAL, [id number] 22:02:00Reason for exam:->thrombocytopenia / eval for hepatosplenomegalyFINAL [...] MDReport Verified Date/Time: 12/20/2019 22:02:21 US abdomen [id number] 22:02:00Interface, External Ris In - 12/20/2019 10:04 [...] Hever Marin MDReport Verified Date/Time: 12/20/2019 22:02:21 [facility] USCPOCT-GLUCOSE [id number] 20:36:00 Test Item Value Reference Range Interpretation Comments POC-GLUCOSE METER 74 mg/dL 70-110 : Notified RN/MD: TESTED (BEAKER) (test code = AT SLS L [address]) [facility] [address]: Room Service Waiter/Techni artemio ID = [id number] for Nelda Abdi POCT-GLUCOSE [id number] 17:50:00 Test Item Value Reference Range Interpretation Comments POC-GLUCOSE METER 72 mg/dL 70-110 : TESTED A T [facility] [address]17 ([facility]) (test code = [address] [facility], 1538) [facility] [address]: Room Service Waiter/Techni artemio ID = [id number] for Berta Servin CT, BRAIN, WITHOUT [id number] 16:08:00Unlisted Reason for Exam - Click Yes [...] Date/Time: 12/20/2019 16:08:40 CT brain without IV [id number] 16:08:00Interface, External Ris In - 12/20/2019 4:10 [...] Berta Muniz MDReport Verified Date/Time: 12/20/2019 16:08:40 [facility] USCRAD, FOOT, 2 VIEWS, [id number] 15:15:00Reason for exam:->Rule out osteomyelitisShould this be [...] Monahaneport Verified Date/Time: 12/20/2019 15:15:25 Reading Location: [facility] Radiology Reading Room , FOOT, 2 VIEWS, [id number] 15:15:00Reason for exam:->Rule out osteomyelitisShould this be [...] Monahanort Verified Date/Time: 12/20/2019 15:15:25 Reading Location: [facility] Radiology Reading Room XR foot 2 views [id number] 15:15:00Interface, External Ris In - 12/20/2019 3:17 [...] Monahan Verified Date/Time: 12/20/2019 15:15:25 Reading Location: [facility] Radiology Reading Room [facility] USCXR foot 2 views [id number] 15:15:00Interface, External Ris In - 12/20/2019 3:17 [...] Monahan Verified Date/Time: 12/20/2019 15:15:25 Reading Location: [facility] Radiology Reading Room [facility] USCAMMONIA2020-09-21 14:56:00 Test Item Value Reference Range Interpretation Comments AMMONIA (BEAKER) (test code = 348) 33 mol/L 17-80 Room Service Waiter ID - ADMINBlood gas, [id number] 14:41:00 Test Item Value Reference Range Interpretation Comments pH, Arterial (test code 7.33 7.35-7.45 L = 2744-1) pCO2, Arterial (test 58 See_Comment H [Autom ated message] code = 2019-8) The system [facility] generated this result transmit merna reference range : 35 - 45 mmHg. The reference range was not used to interpret this result as normal/abnormal . pO2, Arterial (test 109 See_Comment H [Automa merna message] code = 2703-7) The system [facility] generated this result transmit merna reference range [...] % Lab Interpretation Abnormal (test code = 82857-7) [facility] JoseBLOOD GAS, [id number] 14:41:00 Test Item Value Reference Range Interpretation [...] code = 1819) 32.0 % Occult blood, [id number] 11:56:00 Test Item Value Reference Range Interpretation Comments Occult blood (test code = 2335-8) Negative Negative Lab Interpretation (test code = Normal 63649-2) [facility] JoseOCCULT BLOOD, [id number] 11:56:00 Test Item Value Reference Range Interpretation Comments FECAL OCCULT BLOOD (BEAKER) (test Negative Negative code = 618) POCT-GLUCOSE [id number] 11:39:00 Test Item Value Reference Range Interpretation Comments POC-GLUCOSE METER 88 mg/dL 70-110 : TESTED A T [facility] [address] (BEAKER) (test code = [address], 1538) [facility] [address]: Room Service Waiter/Techni artemio ID = [id number] for Gifty Phelps [id number] 11:22:00 Test Item Value Reference Range Interpretation Comments Haptoglobin (test code = <8 14-258 L 4542-7) ZIA (test code = ZIA) Room Service Waiter ID - LEONIE F Lab Interpretation (test Abnormal code = 33559-7) [facility] JoseHAPTOGLOBIN2020-09-21 11:22:00 Test Item Value Reference Range Interpretation Comments HAPTOGLOBIN (BEAKER) (test code = < mg/dL 14-258 L 366) Room Service Waiter ID - LEONIE FT4, [id number] 11:01:00 Test Item Value Reference Range Interpretation Comments Free T4 (test code = 0.52 ng/dL 0.9-1.8 L 3024-7) ZIA (test code = ZIA) Room Service Waiter ID - ADMIN Lab Interpretation (test Abnormal code = 52728-6) [facility] JoseT4, [id number] 11:01:00 Test Item Value Reference Range Interpretation Comments FREE T4 (BEAKER) (test code = 655) 0.52 ng/dL 0.90-1.80 L Room Service Waiter ID - ADMINPeripheral Blood Smear - Path [id number] 08:19:00 Test Item Value Reference Range Interpretation [...] Griffith M.D. code = 2849) (electronic signature) [facility]HER[facility] - PATHOLOGIST REVIEW 2019-12-20 08:19:00 Test Item Value Reference Range Interpretation Comments RBC MORPHOLOGY Target Cells (BEAKER) (test code = 2846) RBC MORPHOLOGY Basophilic Stippling (BEAKER) (test code = 23842) RBC MORPHOLOGY Nucleated Red Blood Cells (BEAKER) (test code = 96698) PERIPHERAL SMR Normochromic normocytic REVIEW (BEAKER) anemia with a few target (test code = 2640) cells, nucleated RBCs and basophilic stippling. No increase in schistocytes. WBCs normal in number and morphology. Thrombocytopenia with normal platelet morphology. [id number]-[id number]-380 Jovita Griffith M.D. 2 (BEAKER) (test (electronic signature) code = 2849) Vitamin B12 and Vwhveg1235-03-98 06:37:00 Test Item Value Reference Range Interpretation Comments Vitamin B12 (test 1431 pg/mL 211-911 H code = 2132-9) Folate (test code = 17.00 ng/mL See_Comment [Automa merna 2284-8) message] The system which generated this result transmit merna reference range : >=5.4. The reference range was not used to interpret this result as normal/abnormal . ZIA (test code = ZAI) Room Service Waiter ID - ADMIN Lab Interpretation Abnormal (test code = 17092-3) [facility]IT[facility]IN B12 AND [id number] 06:37:00 Test Item Value Reference Range Interpretation Comments VITAMIN B12 (BEAKER) (test code = 1431 pg/mL 211-911 H 774) FOLATE (BEAKER) (test code = 362) 17.00 ng/mL >=5.4 Room Service Waiter ID - ADMINPOCT-GLUCOSE [id number] 06:32:00 Test Item Value Reference Range Interpretation Comments POC-GLUCOSE METER 79 mg/dL 70-110 : TESTED A T [address] (BEAKER) (test code = [address], [address]) [facility] [address]: Room Service Waiter/Techni artemio ID = [id number] for Aanhi Sherman TSH/Free T4 If [id number] 06:25:00 Test Item Value Reference Range Interpretation Comments TSH (test code = 21.210 See_Comment H [Automated 47931-2) message] The system which generated this result transmit merna reference range : 0.350 - 5.500 uIU/mL. The reference range was not used to interpret this result as normal/abnormal . ZIA (test code = ZIA) Room Service Waiter ID - ADMIN Lab Interpretation Abnormal (test code = 97557-3) [facility] Jose[facility]ritin2020-09-21 06:25:00 Test Item Value Reference Range Interpretation Comments Ferritin (test code = 595.00 ng/mL 10-291 H 2276-4) ZIA (test code = ZIA) Room Service Waiter ID - ADMIN Lab Interpretation (test Abnormal code = 09638-0) [facility]ERRITIN2020-09-21 06:25:00 Test Item Value Reference Range Interpretation Comments FERRITIN (BEAKER) (test code = 595.00 ng/mL 10.00-291.00 H 361) Room Service Waiter ID - ADMINTSH/FREE T4 IF [id number] 06:25:00 Test Item Value Reference Range Interpretation Comments THYROID STIMULATING HORMONE 21.210 uIU/mL 0.350-5.500 H (BEAKER) (test code = 772) Room Service Waiter ID - ADMINPT/[id number] 06:06:00 Test Item Value Reference Interpretation Comments Range Protime (test code = 13.5 See_Comment H [Autom ated 5902-2) message] The system which generated this result transmitted reference range : 9.3 - 12.0 sec. The reference range was not used to interpret this result as normal/abnormal . INR (test code = 1.25 See_Comment [Automated 2561-6) message] The system which generated this result transmitted reference range : <=5.90. The reference range was not used to interpret this result as normal/abnormal . PTT (test code = 38.2 See_Comment H [Automated 71464-2) message] The system which generated this result [...] Output) Lab Interpretation Abnormal (test code = 04559-2) [facility] Test Item Value Reference Range Interpretation Comments Fibrinogen (test code = 340 mg/dL 667-069 0911-7) ZIA (test code = ZIA) Final Information (Auto Output) Lab Interpretation (test Normal code = 26501-0) [facility] 06:06[facility]00 Test Item Value Reference Range Interpretation Comments FIBRINOGEN LEVEL (BEAKER) (test 340 mg/dL 200-400 code = 658) Final Information (Auto Output)PT/[id number] 06:06:00 Test Item Value Reference Range Interpretation [...] = 2502-3) ZIA (test code = ZIA) Room Service Waiter ID - ADMIN Lab Interpretation (test Abnormal code = 03798-3) [facility], TIBC, % SAT. (WITHOUT FERRITIN)2019-12-20 05:59:00 Test Item Value Reference Range Interpretation Comments IRON (BEAKER) (test code = 547) 92.0 ug/dL 45.0-170.0 TOTAL IRON BINDING CAPACITY 151 ug/dL 250-550 L (BEAKER) (test code = 769) IRON % SATURATION (2) (BEAKER) 61 % 20-55 H (test code = 2590) Room Service Waiter ID - ADMINCOMPREHENSIVE METABOLIC [id number] 05:55:00 Test Item Value Reference Range Interpretation [...] S NOT APPLICABLE FOR DIALYSIS PATIEN TS. Room Service Waiter ID - YOUALO-rswlz5559-31-21 05:46:00 Test Item Value Reference Range Interpretation Comments D-Dimer, Quant (test 1.09 mg/L <0.50 H code = 53813-3) ZIA (test code = ZIA) REGARDING D-DIMER RESULTS: The 98% NPV (Negative Predictive Value) for DVT/PE exclusion is 0.50 mg/L FEU as suggested by the security assessor and as approved by the FDA.Final Information (Auto Output) Lab Interpretation (test Abnormal code = 32644-3) [facility] JoseD-[id number] 05:46:00 Test Item Value Reference Range Interpretation Comments D-DIMER QUANTITATIVE (BEAKER) (test 1.09 mg/L <0.50 H code = 671) REGARDING D-DIMER RESULTS: The 98% NPV (Negative Predictive Value) for DVT/PE exclusion is 0.50 mg/LFEU as suggested by the security assessor and as approved by the FDA.Final Information (Auto Output)Reticulocyte [id number] 05:42:00 Test Item Value Reference Range Interpretation Comments % Retic (test code = 17295-3) 5.9 % 0.4-2.9 H Lab Interpretation (test code = Abnormal 65087-9) [facility] JoseRETICULOCYTE [id number] 05:42:00 Test Item Value Reference Range Interpretation Comments RETICULOCYTE COUNT PCT (BEAKER) (test 5.9 % 0.4-2.9 H code = 575) CBC W/PLT COUNT & AUTO [id number] 05:33:00 Test Item Value Reference Range Interpretation [...] U/L 107-206 ZIA (test code = ZIA) Room Service Waiter ID - ADMIN Lab Interpretation (test Normal code = 03494-6) [facility] JoseLACTATE DEHYDROGENASE (LDH)2019-12-19 21:19:00 Test Item Value Reference Range Interpretation Comments LACTATE DEHYDROGENASE (BEAKER) (test 178 U/L 107-206 code = 635) Room Service Waiter ID - ADMINPOCT-GLUCOSE [id number] 20:47:00 Test Item Value Reference Range Interpretation Comments POC-GLUCOSE METER 102 mg/dL 70-110 : TESTED A T [address] (BEAKER) (test code [facility] [address], = 1538) [facility] [address]: Room Service Waiter/Techni artemio ID = [id number] for Anahi Sherman POCT-GLUCOSE [id number] 16:18:00 Test Item Value Reference Range Interpretation Comments POC-GLUCOSE METER 96 mg/dL 70-110 : TESTED A T [address] (BEAKER) (test code = [address], 15[address]) [place] [address]: Room Service Waiter/Techni artemio ID = [id number] for Nalini Jean Baptiste Basic Metabolic [id number] 06:26:00 Test Item Value Reference Range Interpretation Comments Sodium (test code = 138 meq/L 226-438 6811-2) Potassium (test code = 3.9 meq/L 3.6-5.5 2823-3) Chloride (test code = 99 meq/L 98-106 2075-0) CO2 (test code = 30 meq/L 20-29 H 2028-9) BUN (test code = 47 mg/dL 10-26 H 3094-0) Creatinine (test code 3.04 mg/dL 0.5-1.2 H = 2160-0) Glucose (test code = 82 mg/dL 70-110 2345-7) Calcium (test code = 7.9 mg/dL 8.5-10.5 L 95440-3) EGFR (test code = 15 mL/min/1.73 [place] [address]-7) NOT ACCURATE CREATININE CLEARANCE IN PREDICTING GLOMERULAR FILTRATION RATE . ESTIMATED GFR I S NOT APPLICABLE FOR DIALYSIS PATIENTS. ZIA (test code = ZIA) Room Service Waiter ID - ADMIN Lab Interpretation Abnormal (test code = 94058-1) [facility] METABOLIC [id number] 06:26:00 Test Item Value Reference Range Interpretation [...] S NOT APPLICABLE FOR DIALYSIS PATIEN TS. Room Service Waiter ID - ADMINCBC W/PLT COUNT & AUTO [id number] 06:04:00 Test Item Value Reference Range Interpretation [...] PERCENT (BEAKER) (test code = 2801) POCT-GLUCOSE [id number] 05:35:00 Test Item Value Reference Range Interpretation Comments POC-GLUCOSE METER 85 mg/dL 70-110 : Notified RN/MD: TESTED ([facility]) (test code = AT [facility] L [address]) [place] [address]: Room Service Waiter/Techni artemio ID = [id number] for Niraj , Zonia POCT-GLUCOSE [id number] 21:46:00 Test Item Value Reference Range Interpretation Comments POC-GLUCOSE METER 125 mg/dL 70-110 H : Notified RN/MD: [facility] ([facility] [address]) [place] [address]: Room Service Waiter/Techni artemio ID = [id number] for Niraj , Zonia POCT-GLUCOSE [id number] 16:17:00 Test Item Value Reference Range Interpretation Comments POC-GLUCOSE METER 103 mg/dL 70-110 : [facility] (BEAKER) (test code [address] [facility], = 1538) [place] [address]: Room Service Waiter/Techni artemio ID = [id number] for Nalini Jean Baptiste POCT-GLUCOSE [id number] 07:56:00 Test Item Value Reference Range Interpretation Comments POC-GLUCOSE METER 111 mg/dL 70-110 H : [facility] (BEAKER) (test code [address] [facility], = 1538) [place] [address]: Room Service Waiter/Techni artemio ID = [id number] for Nalini Jean Baptiste POCT-GLUCOSE [id number] 06:25:00 Test Item Value Reference Range Interpretation Comments POC-GLUCOSE METER 57 mg/dL 70-110 L : TESTED A T [address] (BEAKER) (test code = [address], [address]) [place] [address]: Room Service Waiter/Techni artemio ID = [id number] for Ashley n, Anne POCT-GLUCOSE [id number] 21:55:00 Test Item Value Reference Range Interpretation Comments POC-GLUCOSE METER 76 mg/dL 70-110 : TESTED A T [address] (BEAKER) (test code = [address], 15[address]) [place] [address]: Room Service Waiter/Techni artemio ID = [id number] for Ashley n, Anne POCT-GLUCOSE [id number] 18:03:00 Test Item Value Reference Range Interpretation Comments POC-GLUCOSE METER 81 mg/dL 70-110 : TESTED A T [address] (BEAKER) (test code = [address], 1538) [place] [address]: Room Service Waiter/Techni artemio ID = [id number] for Ericka Daniel POCT-GLUCOSE [id number] 12:33:00 Test Item Value Reference Range Interpretation Comments POC-GLUCOSE METER 73 mg/dL 70-110 : TESTED A T [address] (BEAKER) (test code = [address], 1538) [place] [address]: Room Service Waiter/Techni artemio ID = [id number] for Marisela Bolton Hepatitis B surface [id number] 10:49:00 Test Item Value Reference Range Interpretation Comments Hep B S Ab (test code <8.0 See_Comment [Auto mated = 85012-7) message] The system which generated this result transmit merna reference range : <8.0 mIU/mL. e reference range was not used to interpret this result as normal/abnormal . ZIA (test code = ZIA) Room Service Waiter ID - LEONIE F Lab Interpretation Normal (test code = 67821-0) [facility] Jose[facility]ATITIS B SURFACE [id number] 10:49:00 Test Item Value Reference Range Interpretation Comments HEPATITIS B SURFACE ANTIBODY < mIU/mL <8.0 (BEAKER) (test code = 647) Room Service Waiter ID - LEONIE FHepatitis B core antibody, [id number] 10:43:00 Test Item Value Reference Range Interpretation Comments Hep B Core Total Ab Nonreactive Nonreactive (test code = 84996-6) ZIA (test code = ZIA) Room Service Waiter ID Bijal Jay Lab Interpretation (test Normal code = 79186-6) [facility] [id number] 10:43:00 Test Item Value Reference Range Interpretation Comments Hepatitis C Ab (test Nonreactive Nonreactive code = 47417-7) ZIA (test code = ZIA) Room Service Waiter ID Bijal Jay Lab Interpretation (test Normal code = 26317-1) [facility] C [id number] 10:43:00 Test Item Value Reference Range Interpretation Comments HEPATITIS C ANTIBODY (BEAKER) Nonreactive Nonreactive (test code = 367) Room Service Waiter ID Bijal HADLEY FHEPATITIS B CORE ANTIBODY, [id number] 10:43:00 Test Item Value Reference Range Interpretation Comments HEPATITIS B CORE TOTAL ANTIBODY Nonreactive Nonreactive (BEAKER) (test code = 497) Room Service Waiter ID Bijal HADLEY FPOCT-GLUCOSE [id number] 06:31:00 Test Item Value Reference Range Interpretation Comments POC-GLUCOSE METER 67 mg/dL 70-110 L : TESTED A T [address] (BEAKER) (test code = [address], 1538) [facility] [address]: Room Service Waiter/Techni artemio ID = [id number] for Anne Busby COMPREHENSIVE METABOLIC [id number] 05:10:00 Test Item Value Reference Range Interpretation [...] S NOT APPLICABLE FOR DIALYSIS PATIEN TS. Room Service Waiter ID - ADMINCBC W/PLT COUNT & AUTO [id number] 04:36:00 Test Item Value Reference Range Interpretation [...] PERCENT (BEAKER) (test code = 2801) POCT-GLUCOSE [id number] 21:14:00 Test Item Value Reference Range Interpretation Comments POC-GLUCOSE METER 79 mg/dL 70-110 : TESTED A T [address] ([facility] (test code = [address] [facility], 1538) [facility] 77 [address]: Room Service Waiter/Techni artemio ID = [id number] for Anne Busby POCT-GLUCOSE [id number] 18:35:00 Test Item Value Reference Range Interpretation Comments POC-GLUCOSE METER 68 mg/dL 70-110 L : Notified RN/MD: TESTED (AKER) (test code = AT [address]) [facility] [address]: Room Service Waiter/Techni artemio ID = [id number] for Alondra Kelley SARS-COV2/RT-PCR ([facility])2019-12-16 17:53:00 Test Item Value Reference Range Interpretation Comments SARS-COV2/RT-PCR (test Negative Not Detected, Negative, code = 0652648) See external report for linked test SARS-COV-2 PERFORMING LAB [facility] JANET (test code = 4921978) Negative result for this test determines that [...] 564(g) of the Act.Fact Sheet for Healthcare Providers:https://www.[employer] Zhang[employer]idel.com/sites/default/files/product/documents/Fact_Shee q_TL_Xdwutcjpd_Osos_XKMP-FnS-2.pdfFact Sheet for Healthcare Patients:https://www.[employer] Zhang[employer].com/sites/default/files/product/ documents/Tuko_Mgejo_Ndwdutzw_Lmor_FCDN-JwW-3.pdfPerforming Laboratory:[facility], [place] [address]Mqdjbuixn B surface [id number] 16:57:00 Test Item Value Reference Range Interpretation Comments HBsAg Screen (test code = Nonreactive Nonreactive 5195-3) ZIA (test code = ZIA) Room Service Waiter ID - ADMIN Lab Interpretation (test Normal code = 87720-5) [facility]HEPATITIS B SURFACE [id number] 16:57:00 Test Item Value Reference Range Interpretation Comments HEPATITIS B SURFACE ANTIGEN (2) Nonreactive Nonreactive (BEAKER) (test code = 2585) Room Service Waiter ID - ADMINANG, TUNNELED CATHETER [id number] 15:06:00Reason for Central Line/PICC?->Need for hemodialysis accessReason [...] the patient's medical record by the nurse. Ship Washer: Soto Arias M.D. Professor Of Literature: none. Approach: Right internal jugular vein Estimated [...] needle into the right atrium. A 4 Croatian micropuncture sheath was placed and a 0.035 wire was advanced into the IVC. A subcutaneous tunnel was created in the left anterior chest wall by blunt dissection. A 23 cm tip to cuff 15.5 Croatian Duraflow 2 catheter was brought through the [...] Arias MDReport Verified Date/Time: 12/16/2019 15:06:45Reading Location: [facility] Radiology Reading Room IR Tunneled Catheter [id number] 15:06:00 Interface, External Ris In - 12/16/2019 [...] the patient's medical record by the nurse. Ship Washer: Soto Arias M.D. Ass istant: none. Approach: [...] A 23 cm tip to cuff 15.5 Croatian Duraflow 2 catheter was brought through the [...] MDReport Verified Date/Time: 12/16/2019 15:06:45 Reading Location: [facility] [id number] 14:59:00 Test Item Value Reference Range Interpretation Comments POC-GLUCOSE METER 70 mg/dL 70-110 : Notified RN/MD: TESTED (BEAKER) (test code = AT [facility] [address]) JAYNAJoe [facility] [address]: Room Service Waiter/Techni artemio ID = [id number] for Alondra Kelley POCT-GLUCOSE [id number] 11:13:00 Test Item Value Reference Range Interpretation Comments POC-GLUCOSE METER 72 mg/dL 70-110 : Notified RN/MD: TESTED ([facility]OBERT) (test code = AT [facility] L [address]) [facility] [address]: Room Service Waiter/Techni artemio ID = [id number] for Alondra Kelley RAD, CHEST, 1 VIEW, NON [id number] 09:20:00Reason for exam:->fallShould this be performed at [...] MDReport Verified Date/Time: 12/16/2019 09:20:06 Reading Location: [facility] Radiology Reading Room XR chest 1 view portable / [id number] 09:20:00Interface, External Ris In - 12/16/2019 9:22 [...] MDReport Verified Date/Time: 12/16/2019 09:20:06 Reading Location: [facility] Radiology Reading Room Electronically yeimi d by: SOTO ARIAS MD on 12/16/2019 09:20 [facility] POCT-GLUCOSE [id number] 06:03:00 Test Item Value Reference Range Interpretation Comments POC-GLUCOSE METER 74 mg/dL 70-110 : Notified RN/MD: TESTED (BEAKER) (test code = AT [facility] [address]) [facility] [address]: Room Service Waiter/Techni artemio ID = [id number] for Zonia Healy BASIC METABOLIC [id number] 05:08:00 Test Item Value Reference Range Interpretation [...] S NOT APPLICABLE FOR DIALYSIS PATIEN TS. Room Service Waiter ID - ADMINProthrombin time/[id number] 05:01:00 Test Item Value Reference Interpretation Comments [...] Output) Lab Interpretation Abnormal (test code = 20903-3) [facility] JosePROTHROMBIN TIME/[id number] 05:01:00 Test Item Value Reference Range Interpretation [...] Information (Auto Output)CBC W/PLT COUNT & AUTO [id number] 04:46:00 Test Item Value Reference Range Interpretation [...] PERCENT (BEAKER) (test code = 2801) POCT-GLUCOSE [id number] 17:13:00 Test Item Value Reference Range Interpretation Comments POC-GLUCOSE METER 220 mg/dL 70-110 H TESTED AT [facility] 6720 (BEAKER) (test code = [place] [address]) [address] BASIC METABOLIC [id number] 15:47:00 Test Item Value Reference Range Interpretation [...] NOT APPLICABLE FOR DIALYSIS PATIEN TS. POCT-GLUCOSE [id number] 11:30:00 Test Item Value Reference Range Interpretation Comments POC-GLUCOSE METER 268 mg/dL 70-110 H TESTED AT [place] [address] ([facility]) (test code = [facility] 1538) [address] POCT-GLUCOSE [id number] 07:08:00 Test Item Value Reference Range Interpretation Comments POC-GLUCOSE METER 208 mg/dL 70-110 H TESTED AT [place] [address] ([facility]) (test code = [facility] 1538) [address] CALCIUM, [id number] 06:47:00 Test Item Value Reference Range Interpretation Comments CALCIUM IONIZED (BEAKER) (test 1.11 mmol/L 1.12-1.27 L code = 698) PH, BLOOD (BEAKER) (test code = 7.40 1810) BASIC METABOLIC [id number] 06:40:00 Test Item Value Reference Range Interpretation [...] S NOT APPLICABLE FOR DIALYSIS PATIEN TS. [id number] 06:33:00 Test Item Value Reference Range Interpretation Comments PHOSPHORUS (BEAKER) (test code = 5.1 mg/dL 2.3-4.7 H 604) [id number] 06:33:00 Test Item Value Reference Range Interpretation Comments MAGNESIUM (BEAKER) (test code = 2.0 mg/dL 1.6-2.6 627) LACTIC ACID, VENOUS, WHOLE [id number] 06:02:00 Test Item Value Reference Range Interpretation Comments LACTATE BLOOD VENOUS (2) (BEAKER) 0.8 mmol/L 0.5-2.2 (test code = 2872) Effective 08/02/2015: Units/Reference Range ChangeNew: 0.5-2.2 mmol/L Previous: 5-20 mg/dLCBC W/PLT COUNT & AUTO [id number] 05:54:00 Test Item Value Reference Range Interpretation [...] PERCENT (BEAKER) (test code = 2801) POCT-GLUCOSE [id number] 21:30:00 Test Item Value Reference Range Interpretation Comments POC-GLUCOSE METER 248 mg/dL 70-110 H TESTED AT [facility] 6720 (BEAKER) (test code = [address] [place] [address]) [address] RAD, [id number] 21:22:00Reason for exam:->fall, tailbone painFINAL REPORT RAD, [...] MDReport Verified Date/Time: 09/04/2017 21:22:03 Reading Location: [facility] C013T [facility] Reading Room POCT-GLUCOSE [id number] 17:37:00 Test Item Value Reference Range Interpretation Comments POC-GLUCOSE METER 222 mg/dL 70-110 H TESTED AT [place] [address] ([facility]) (test code = [facility] 1538) [address] POCT-GLUCOSE [id number] 13:55:00 Test Item Value Reference Range Interpretation Comments POC-GLUCOSE METER 194 mg/dL 70-110 H TESTED AT [place] [address] ([facility]) (test code = [facility] 1538) [address] POCT-GLUCOSE [id number] 12:34:00 Test Item Value Reference Range Interpretation Comments POC-GLUCOSE METER 229 mg/dL 70-110 H TESTED AT [place] [address] ([facility]) (test code = [facility] Dylon [facility] 1538) [address] POCT-GLUCOSE [id number] 08:00:00 Test Item Value Reference Range Interpretation Comments POC-GLUCOSE METER 159 mg/dL 70-110 H TESTED AT [place] [address] ([facility]) (test code = [facility] 1538) [address] CALCIUM, [id number] 06:00:00 Test Item Value Reference Range Interpretation Comments CALCIUM IONIZED ([facility]) (test 1.05 mmol/L 1.12-1.27 L code = 698) PH, BLOOD ([facility]) (test code = 7.45 1810) [id number] 05:59:00 Test Item Value Reference Range Interpretation Comments PHOSPHORUS ([facility]) (test code = 4.8 mg/dL 2.3-4.7 H 604) [id number] 05:59:00 Test Item Value Reference Range Interpretation Comments MAGNESIUM (BEAKER) (test code = 2.0 mg/dL 1.6-2.6 627) BASIC METABOLIC [id number] 05:59:00 Test Item Value Reference Range Interpretation [...] = 380) CBC W/PLT COUNT & AUTO [id number] 05:32:00 Test Item Value Reference Range Interpretation [...] PERCENT (BEAKER) (test code = 2801) POCT-GLUCOSE [id number] 20:36:00 Test Item Value Reference Range Interpretation Comments POC-GLUCOSE METER 211 mg/dL 70-110 H TESTED AT [facility] 6720 (BEAKER) (test code = [address] [place] 1538) [address] CREATININE, RANDOM [id number] 19:55:00 Test Item Value Reference Range Interpretation Comments CREATININE URINE (BEAKER) (test 16.1 mg/dL code = 375) Reference Range: No NormalsPROTEIN, RANDOM [id number] 19:55:00 Test Item Value Reference Range Interpretation Comments PROTEIN, URINE (BEAKER) (test code 102 mg/dL 0-14 H = 1569) POCT-GLUCOSE [id number] 18:04:00 Test Item Value Reference Range Interpretation Comments POC-GLUCOSE METER 177 mg/dL 70-110 H TESTED AT [place] [address] (BEAKER) (test code = [facility] 1538) [address] POCT-GLUCOSE [id number] 11:59:00 Test Item Value Reference Range Interpretation Comments POC-GLUCOSE METER 244 mg/dL 70-110 H TESTED AT [place] [address] (BEAKER) (test code = [facility] 1538) [address] POCT-GLUCOSE [id number] 07:53:00 Test Item Value Reference Range Interpretation Comments POC-GLUCOSE METER 160 mg/dL 70-110 H TESTED AT [place] [address] (BEAKER) (test code = [facility] 1538) [address] BASIC METABOLIC [id number] 05:29:00 Test Item Value Reference Range Interpretation [...] S NOT APPLICABLE FOR DIALYSIS PATIEN TS. [id number] 05:21:00 Test Item Value Reference Range Interpretation Comments MAGNESIUM (BEAKER) (test code = 2.1 mg/dL 1.6-2.6 627) HEPATIC FUNCTION [id number] 05:21:00 Test Item Value Reference Range Interpretation [...] code = 23 U/L 6-55 347) TROPONIN [id number] 05:18:00 Test Item Value Reference Range Interpretation [...] PERCENT (BEAKER) (test code = 2801) TROPONIN [id number] 23:40:00 Test Item Value Reference Range Interpretation [...] acidosis, acute neurological disease, and persistent tachyarrhythmia.POCT-GLUCOSE [id number] 22:51:00 Test Item Value Reference Range Interpretation Comments POC-GLUCOSE METER 214 mg/dL 70-110 H TESTED AT [facility] 6720 (BEAKER) (test code = [place]IANO [place] 1538) [address] RAD, CHEST, 1 VIEW, NON [id number] 21:42:00Reason for exam:->CHEST PAINShould this be performed at the bedside?->YesFINAL REPORT RAD, CHEST, 1 VIEW, NON DEPT INDICATION: CHEST PAIN COMPARISON: Chest x-ray 4 weeks ago TECHNIQUE: Single frontal view of the chest. IMPRESSION:Cardiomegaly.Mild pulmonary interstitial edema with a small right- sided effusion.No acute osseous abnormality. Signed: Dario Abraham MDReport Verified Date/Time: 09/02/2017 21:42:11 Reading Location: [address] Reading Room CREATININE, RANDOM [id number] 21:10:00 Test Item Value Reference Range Interpretation Comments CREATININE URINE (BEAKER) (test 35.5 mg/dL code = 375) Reference Range: No NormalsSODIUM, RANDOM [id number] 21:10:00 Test Item Value Reference Range Interpretation Comments SODIUM URINE (BEAKER) (test code = 80 meq/L 243) Reference Range: No NormalsURINALYSIS W/ [id number] 20:59:00 Test Item Value Reference Range Interpretation [...] code = 514) SOURCE(BEAKER) (test code = 8635) BASIC METABOLIC [id number] 16:49:00 Test Item Value Reference Range Interpretation [...] S NOT APPLICABLE FOR DIALYSIS PATIEN TS. [id number] 16:38:00 Test Item Value Reference Range Interpretation [...] (BEAKER) (test code = 700) BASIC METABOLIC [id number] 13:43:00 Test Item Value Reference Range Interpretation [...] NOT APPLICABLE FOR DIALYSIS PATIEN TS. POCT-GLUCOSE [id number] 12:44:00 Test Item Value Reference Range Interpretation Comments POC-GLUCOSE METER 283 mg/dL 70-110 H TESTED AT [facility] 6720 (BEAKER) (test code = JULIANO Osborne [place] 1538) [address] CALCIUM, [id number] 07:03:00 Test Item Value Reference Range Interpretation Comments CALCIUM IONIZED (BEAKER) (test 1.02 mmol/L 1.12-1.27 L code = 698) PH, BLOOD (BEAKER) (test code = 7.43 1810) [id number] 05:28:00 Test Item Value Reference Range Interpretation Comments PHOSPHORUS (BEAKER) (test code = 3.3 mg/dL 2.3-4.7 604) [id number] 05:28:00 Test Item Value Reference Range Interpretation Comments MAGNESIUM (BEAKER) (test code = 1.5 mg/dL 1.6-2.6 L 627) BASIC METABOLIC [id number] 05:28:00 Test Item Value Reference Range Interpretation [...] PATIEN TS. CBC W/PLT COUNT & AUTO [id number] 05:06:00 Test Item Value Reference Range Interpretation [...] PERCENT (BEAKER) (test code = 2801) POCT-GLUCOSE [id number] 21:08:00 Test Item Value Reference Range Interpretation Comments POC-GLUCOSE METER 202 mg/dL 70-110 H TESTED AT [facility] 6720 ([facility] (test code = JULIANO REYEZ 1538) [address] POCT-GLUCOSE [id number] 16:50:00 Test Item Value Reference Range Interpretation Comments POC-GLUCOSE METER 287 mg/dL 70-110 H [place] [address] (BEAKER) (test code = JULIANO Osborne [facility] 1538) [address] POCT-GLUCOSE [id number] 12:21:00 Test Item Value Reference Range Interpretation Comments POC-GLUCOSE METER 213 mg/dL 70-110 H TESTED AT [place] [address] (BEAKER) (test code = JULIANO Osborne [facility] 1538) [address] POCT-GLUCOSE [id number] 08:28:00 Test Item Value Reference Range Interpretation Comments POC-GLUCOSE METER 178 mg/dL 70-110 H TESTED AT [place] [address] (BEAKER) ([facility] 1538) [address] CALCIUM, [id number] 07:06:00 Test Item Value Reference Range Interpretation Comments CALCIUM IONIZED (BEAKER) (test 0.99 mmol/L 1.12-1.27 L code = 698) PH, BLOOD (BEAKER) (test code = 7.42 1810) [id number] 05:37:00 Test Item Value Reference Range Interpretation Comments PHOSPHORUS (BEAKER) (test code = 3.5 mg/dL 2.3-4.7 604) [id number] 05:37:00 Test Item Value Reference Range Interpretation Comments MAGNESIUM (BEAKER) (test code = 1.6 mg/dL 1.6-2.6 627) BASIC METABOLIC [id number] 05:37:00 Test Item Value Reference Range Interpretation [...] PATIEN TS. CBC W/PLT COUNT & AUTO [id number] 05:07:00 Test Item Value Reference Range Interpretation [...] EOSINOPHILS ABSOLUTE COUNT 0.26 K/ L 0.04-0.36 ([facility]) (test code = 416) BASOPHILS ABSOLUTE COUNT ([facility]) 0.04 K/ L 0.01-0.08 (test code = 417) IMMATURE GRANULOCYTES-RELATIVE 1 % 0-1 PERCENT ([facility]) (test code = 2801) POCT-GLUCOSE [id number] 21:24:00 Test Item Value Reference Range Interpretation Comments POC-GLUCOSE METER 255 mg/dL 70-110 H TESTED AT [place] [address] ([facility]) (test code = [facility] 1538) [address] POCT-GLUCOSE [id number] 17:11:00 Test Item Value Reference Range Interpretation Comments POC-GLUCOSE METER 244 mg/dL 70-110 H TESTED AT [place] [address] ([facility]) (test code = [facility] 1538) [address] POCT-GLUCOSE [id number] 11:54:00 Test Item Value Reference Range Interpretation Comments POC-GLUCOSE METER 209 mg/dL 70-110 H TESTED AT [place] [address] ([facility]) (test code = [facility] 1538) [address] POCT-GLUCOSE [id number] 08:15:00 Test Item Value Reference Range Interpretation Comments POC-GLUCOSE METER 132 mg/dL 70-110 H TESTED AT [place] [address] ([facility]) (test code = [facility] 1538) [address] RAD, CHEST, 1 VIEW, NON [id number] 07:44:00Reason for exam:->edemaShould this be performed at the bedside?->YesFINAL REPORT Chest one view AP 08/07/2017 7:44 AM CLINICAL INDICATION: edema COMPARISON: 05/31/2017 IMPRESSION: Cardiomediastinal contours are stable. There is mild pulmonary edema,asymmetric to the right. There are trace bilateral pleural effusions, with bibasilar linear atelectasis. Sternotomy wires remain midline. Signed: Regan Cespedes Verified Date/Time: 08/07/2017 07:44:22 Reading Location: [facility] Radiology Reading Room [id number] 05:30:00 Test Item Value Reference Range Interpretation Comments FERRITIN (BEAKER) (test code = 361) 87 ng/mL 5-275 CBC W/PLT COUNT & AUTO [id number] 05:21:00 Test Item Value Reference Range Interpretation [...] % 20-55 L (test code = 2590) [id number] 05:11:00 Test Item Value Reference Range Interpretation Comments PHOSPHORUS (BEAKER) (test code = 3.6 mg/dL 2.3-4.7 604) [id number] 05:11:00 Test Item Value Reference Range Interpretation Comments MAGNESIUM (BEAKER) (test code = 2.0 mg/dL 1.6-2.6 627) BASIC METABOLIC [id number] 05:11:00 Test Item Value Reference Range Interpretation [...] H (BEAKER) (test code = 700) CALCIUM, [id number] 04:58:00 Test Item Value Reference Range Interpretation Comments CALCIUM IONIZED (BEAKER) (test 1.04 mmol/L 1.12-1.27 L code = 698) PH, BLOOD (BEAKER) (test code = 7.41 1810) RETICULOCYTE [id number] 04:51:00 Test Item Value Reference Range Interpretation Comments RETICULOCYTE COUNT PCT (BEAKER) (test 1.2 % 0.5-1.7 code = 575) POCT-GLUCOSE [id number] 20:49:00 Test Item Value Reference Range Interpretation Comments POC-GLUCOSE METER 202 mg/dL 70-110 H TESTED AT [facility] 6720 (BEAKER) (test code = [facility] 1538) [address] CREATININE, RANDOM [id number] 18:38:00 Test Item Value Reference Range Interpretation Comments CREATININE URINE (BEAKER) (test 56.3 mg/dL code = 375) Reference Range: No NormalsPROTEIN, RANDOM [id number] 18:38:00 Test Item Value Reference Range Interpretation Comments PROTEIN, URINE (BEAKER) (test code 189 mg/dL 0-14 H = 1569) URINALYSIS W/ [id number] 18:34:00 Test Item Value Reference Range Interpretation [...] 516) SOURCE(BEAKER) (test code = Urine, Voided 4850) POCT-GLUCOSE [id number] 17:38:00 Test Item Value Reference Range Interpretation Comments POC-GLUCOSE METER 143 mg/dL 70-110 H TESTED AT [place] [address] (BEAKER) (test [facility] = [facility] 1538) [address] POCT-GLUCOSE [id number] 12:30:00 Test Item Value Reference Range Interpretation Comments POC-GLUCOSE METER 218 mg/dL 70-110 H TESTED AT [place] [address] (BEAKER) (test code = [facility] Dylon [facility] 1538) [address] POCT-GLUCOSE [id number] 08:00:00 Test Item Value Reference Range Interpretation Comments POC-GLUCOSE METER 134 mg/dL 70-110 H TESTED AT [place] [address] (BEAKER) (test code = [facility] Dylon [facility] 1538) [address] CBC W/PLT COUNT & AUTO [id number] 04:23:00 Test Item Value Reference Range Interpretation [...] (BEAKER) (test code = 2801) BASIC METABOLIC [id number] 04:13:00 Test Item Value Reference Range Interpretation [...] S NOT APPLICABLE FOR DIALYSIS PATIEN TS. [id number] 04:10:00 Test Item Value Reference Range Interpretation Comments PHOSPHORUS (BEAKER) (test code = 4.9 mg/dL 2.3-4.7 H 604) [id number] 04:10:00 Test Item Value Reference Range Interpretation Comments MAGNESIUM (BEAKER) (test code = 1.4 mg/dL 1.6-2.6 L 627) [id number] 04:08:00 Test Item Value Reference Range Interpretation Comments FIBRINOGEN LEVEL (BEAKER) (test 548 mg/dl 225-434 H code = 658) [id number] 04:08:00 Test Item Value Reference Range Interpretation Comments PARTIAL THROMBOPLASTIN TIME 37.7 seconds 22.5-36.0 H (BEAKER) (test code = 760) PROTHROMBIN [id number] 04:07:00 Test Item Value Reference Range Interpretation Comments PROTIME (BEAKER) (test code = 16.2 seconds 11.7-14.7 H 759) INR (BEAKER) (test code = 370) 1.3 <=5.9 RECOMMENDED COUMADIN/WARFARIN INR THERAPY RANGESSTANDARD DOSE: 2.0 - 3.0 Includes: PROPHYLAXIS forvenous thrombosis, systemic embolization; TREATMENT for venous thrombosis and/or pulmonary embolus.HIGH RISK: Target INR is 2.5-3.5 for patients with mechanical heart valves.[id number] 16:59:00 Test Item Value Reference Range Interpretation Comments ACTIVATED CLOTTING TIME 219 sec TEST ED AT [facility] 6720 ([facility] (test code = JULIANO Osborne [place] 441) [address] BASIC METABOLIC [id number] 14:25:00 Test Item Value Reference Range Interpretation [...] NOT APPLICABLE FOR DIALYSIS PATIEN TS. POCT-GLUCOSE [id number] 13:21:00 Test Item Value Reference Range Interpretation Comments POC-GLUCOSE METER 170 mg/dL 70-110 H TESTED AT [facility] 6720 (BEAKER) (test code = [place]O [place] 1539) [address] POTASSIUM-STAT [id number] 13:20:00 Test Item Value Reference Range Interpretation Comments POTASSIUM (BEAKER) (test code = 4.2 meq/L 3.6-5.5 379) SODIUM NA-STAT [id number] 13:20:00 Test Item Value Reference Range Interpretation Comments SODIUM (BEAKER) (test code = 381) 133 meq/L 135-148 L HGB/HCT (H&H) - STAT [id number] 12:34:00 Test Item Value Reference Range Interpretation Comments HEMOGLOBIN (BEAKER) (test code = 10.8 g/dL 12.0-15.0 L 410) HEMATOCRIT (BEAKER) (test code = 32.0 % 36.0-45.0 L 411) POTASSIUM-STAT [id number] 08:15:00 Test Item Value Reference Range Interpretation Comments POTASSIUM (BEAKER) (test code = 4.1 meq/L 3.6-5.5 379) BLOOD GAS, [id number] 08:15:00 Test Item Value Reference Range Interpretation [...] code = 1819) 70.0 % SODIUM NA-STAT [id number] 08:15:00 Test Item Value Reference Range Interpretation Comments SODIUM (BEAKER) (test code = 381) 130 meq/L 135-148 L GLUCOSE-STAT [id number] 08:15:00 Test Item Value Reference Range Interpretation Comments GLUCOSE RANDOM (BEAKER) (test code 172 mg/dL 70-110 H = 652) HGB/HCT (H&H) - STAT [id number] 08:15:00 Test Item Value Reference Range Interpretation Comments HEMOGLOBIN (BEAKER) (test code = 8.8 g/dL 12.0-15.0 L 410) HEMATOCRIT (BEAKER) (test code = 26.0 % 36.0-45.0 L 411) BASIC METABOLIC [id number] 07:37:00 Test Item Value Reference Range Interpretation [...] PATIEN TS. CBC W/PLT COUNT & AUTO [id number] 07:20:00 Test Item Value Reference Range Interpretation [...] PERCENT (BEAKER) (test code = 2801) POCT-GLUCOSE [id number] 07:03:00 Test Item Value Reference Range Interpretation Comments POC-GLUCOSE METER 186 mg/dL 70-110 H TESTED AT [facility] 6720 (BEAKER) (test code = [place] 1538) [address] B-TYPE NATRIURETIC FACTOR (BNP)[id number] 12:44:00 Test Item Value Reference Range Interpretation Comments B-TYPE NATRIURETIC PEPTIDE 1264 pg/mL 0-100 H (BEAKER) (test code = 700) [id number] 12:36:00 Test Item Value Reference Range Interpretation Comments MAGNESIUM (BEAKER) (test code = 1.6 mg/dL 1.6-2.6 627) BASIC METABOLIC [id number] 12:36:00 Test Item Value Reference Range Interpretation [...] NOT APPLICABLE FOR DIALYSIS PATIEN TS. POCT-GLUCOSE [id number] 12:04:00 Test Item Value Reference Range Interpretation Comments POC-GLUCOSE METER 274 mg/dL 70-110 H TESTED AT [facility] 6720 (BEAKER) (test code = [facility] Dylon [place] 1538) [address] POCT-GLUCOSE [id number] 07:21:00 Test Item Value Reference Range Interpretation Comments POC-GLUCOSE METER 137 mg/dL 70-110 H TESTED AT [facility] 6720 (BEAKER) (test code = [facility] [place] 1538) [address] BASIC METABOLIC [id number] 05:10:00 Test Item Value Reference Range Interpretation [...] % 34.1-44.9 L 411) MEAN CORPUSCULAR VOLUME ([facility]) 83.4 fL 79.4-94.8 (test code = 753) MEAN CORPUSCULAR HEMOGLOBIN 25.7 pg 25.6-32.2 (AKER) (test code = 751) MEAN CORPUSCULAR HEMOGLOBIN CONC 30.9 GM/DL 32.2-35.5 L ([facility]) (test code = 752) RED CELL DISTRIBUTION WIDTH 15.2 % 11.7-14.4 H ([facility]) (test code = 412) PLATELET COUNT ([facility]) (test 320 K/CU MM 150-450 code = 756) MEAN PLATELET VOLUME ([facility]) 9.5 fL 9.4-12.3 (test code = 754) NUCLEATED RED BLOOD CELLS 0 /100 WBC 0-0 ([facility]) (test code = 413) POCT-GLUCOSE [id number] 21:23:00 Test Item Value Reference Range Interpretation Comments POC-GLUCOSE METER 240 mg/dL 70-110 H TESTED AT [place] [address] ([facility]) (test code = [facility] 1538) [address] POCT-GLUCOSE [id number] 16:42:00 Test Item Value Reference Range Interpretation Comments POC-GLUCOSE METER 234 mg/dL 70-110 H TESTED AT [place] [address] ([facility]) (test code = [facility] 1538) [address] POCT-GLUCOSE [id number] 13:22:00 Test Item Value Reference Range Interpretation Comments POC-GLUCOSE METER 166 mg/dL 70-110 H TESTED AT [place] [address] ([facility]) (test code = [facility] 1538) [address] RAD, CHEST, 1 VIEW, NON [id number] 09:43:00Reason for exam:->s/p ACBShould this be performed [...] Ring MDReport Verified Date/Time: 05/31/2017 09:43:30 ReadingLocation: [facility] B1 C013X Ortho Consult Reading Room POCT-GLUCOSE [id number] 06:57:00 Test Item Value Reference Range Interpretation Comments POC-GLUCOSE METER 136 mg/dL 70-110 H TESTED AT [facility] 6720 (BEAKER) (test code = [place]IAN[place] 1538) [address] CALCIUM, [id number] 06:41:00 Test Item Value Reference Range Interpretation Comments CALCIUM IONIZED (BEAKER) (test 1.10 mmol/L 1.12-1.27 L code = 698) PH, BLOOD (BEAKER) (test code = 7.42 1810) [id number] 06:17:00 Test Item Value Reference Range Interpretation Comments PHOSPHORUS (BEAKER) (test code = 3.3 mg/dL 2.3-4.7 604) [id number] 06:17:00 Test Item Value Reference Range Interpretation Comments MAGNESIUM (BEAKER) (test code = 1.8 mg/dL 1.6-2.6 627) BASIC METABOLIC [id number] 06:17:00 Test Item Value Reference Range Interpretation [...] PATIEN TS. CBC W/PLT COUNT & AUTO [id number] 05:07:00 Test Item Value Reference Range Interpretation [...] EOSINOPHILS ABSOLUTE COUNT 0.11 K/ L 0.04-0.36 ([facility]) (test code = 416) BASOPHILS ABSOLUTE COUNT ([facility]) 0.05 K/ L 0.01-0.08 (test code = 417) IMMATURE GRANULOCYTES-RELATIVE 1 % 0-1 PERCENT ([facility]) (test code = 2801) POCT-GLUCOSE [id number] 20:56:00 Test Item Value Reference Range Interpretation Comments POC-GLUCOSE METER 196 mg/dL 70-110 H TESTED AT [place] [address] ([facility]) (test code = [facility] 1538) [address] POCT-GLUCOSE [id number] 16:42:00 Test Item Value Reference Range Interpretation Comments POC-GLUCOSE METER 196 mg/dL 70-110 H TESTED AT [place] [address] ([facility]) (test code = [facility] 1538) [address] POCT-GLUCOSE [id number] 11:45:00 Test Item Value Reference Range Interpretation Comments POC-GLUCOSE METER 215 mg/dL 70-110 H TESTED AT [place] [address] ([facility]) (test code = [facility] 1538) [address] RAD, CHEST, 1 VIEW, NON [id number] 11:15:00Reason for exam:->s/p ACBShould this be performed at the bedside?->YesFINAL REPORT Chest one view compared to May 28, 2017 Discussion: Airspace opacities are seen in both lower lung regions, probably atelectasis. Correlate clinically for infection. I could not exclude small effusions. No pneumothorax. Upper lungs clear. Signed: Jeannette Navaeport Verified Date/Time: 05/30/2017 11:15:07 Reading Location: [facility] Radiology Reading Room CALCIUM, [id number] 09:21:00 Test Item Value Reference Range Interpretation Comments CALCIUM IONIZED (BEAKER) (test 1.11 mmol/L 1.12-1.27 L code = 698) PH, BLOOD ([facility]) (test code = 7.36 1810) BASIC METABOLIC [id number] 07:37:00 Test Item Value Reference Range Interpretation [...] S NOT APPLICABLE FOR DIALYSIS PATIEN TS. [id number] 07:28:00 Test Item Value Reference Range Interpretation Comments PHOSPHORUS (BEAKER) (test code = 3.8 mg/dL 2.3-4.7 604) [id number] 07:28:00 Test Item Value Reference Range Interpretation Comments MAGNESIUM (BEAKER) (test code = 1.9 mg/dL 1.6-2.6 627) CBC W/PLT COUNT & AUTO [id number] 07:26:00 Test Item Value Reference Range Interpretation [...] PERCENT (BEAKER) (test code = 2801) POCT-GLUCOSE [id number] 07:21:00 Test Item Value Reference Range Interpretation Comments POC-GLUCOSE METER 146 mg/dL 70-110 H TESTED AT [facility] 6720 ([facility] (test code = [place] 1538) [address] POCT-GLUCOSE [id number] 22:02:00 Test Item Value Reference Range Interpretation Comments POC-GLUCOSE METER 201 mg/dL 70-110 H TESTED AT [facility] 6720 (BEAKER) (test code = [place]IANO [place] 1538) [address] POCT-GLUCOSE [id number] 18:27:00 Test Item Value Reference Range Interpretation Comments POC-GLUCOSE METER 240 mg/dL 70-110 H TESTED AT [facility] 6720 (BEAKER) (test code = JULIANO Osborne [facility] 1538) [address] POCT-GLUCOSE [id number] 12:13:00 Test Item Value Reference Range Interpretation Comments POC-GLUCOSE METER 193 mg/dL 70-110 H TESTED AT [facility] 6720 (BEAKER) (test code = JULIANO Osborne [place] 1538) [address] POCT-GLUCOSE [id number] 09:02:00 Test Item Value Reference Range Interpretation Comments POC-GLUCOSE METER 132 mg/dL 70-110 H TESTED AT [facility] 6720 (BEAKER) (test code = JULIANO Osborne [facility] 1538) [address] CALCIUM, [id number] 05:42:00 Test Item Value Reference Range Interpretation Comments CALCIUM IONIZED (BEAKER) (test 1.12 mmol/L 1.12-1.27 code = 698) PH, BLOOD (BEAKER) (test code = 7.34 1810) COMPREHENSIVE METABOLIC [id number] 05:33:00 Test Item Value Reference Range Interpretation [...] S NOT APPLICABLE FOR DIALYSIS PATIEN TS. [id number] 05:32:00 Test Item Value Reference Range Interpretation Comments PHOSPHORUS (BEAKER) (test code = 3.6 mg/dL 2.3-4.7 604) [id number] 05:32:00 Test Item Value Reference Range Interpretation Comments MAGNESIUM (BEAKER) (test code = 2.2 mg/dL 1.6-2.6 627) CBC W/PLT COUNT & AUTO [id number] 05:01:00 Test Item Value Reference Range Interpretation [...] PERCENT (BEAKER) (test code = 2801) POCT-GLUCOSE [id number] 21:04:00 Test Item Value Reference Range Interpretation Comments POC-GLUCOSE METER 165 mg/dL 70-110 H TESTED AT [facility] 67 ([facility]) (test code = [facility] 1538) [address] POCT-GLUCOSE [id number] 17:30:00 Test Item Value Reference Range Interpretation Comments POC-GLUCOSE METER 236 mg/dL 70-110 H TESTED AT [facility] 6720 ([facility]) (test code = [facility] 1538) [address] RAD, CHEST, 1 VIEW, NON [id number] 13:53:00Reason for exam:->assess for ill-defined opacityShould this [...] MDReport Verified Date/Time: 05/28/2017 13:53:03 Reading Location: [address] Radiology Reading Room POCT-GLUCOSE [id number] 11:53:00 Test Item Value Reference Range Interpretation Comments POC-GLUCOSE METER 215 mg/dL 70-110 H TESTED AT [place] [address] (BEAKER) (test code = [facility] 1538) [address] POCT-GLUCOSE [id number] 08:32:00 Test Item Value Reference Range Interpretation Comments POC-GLUCOSE METER 168 mg/dL 70-110 H TESTED AT [place] [address] ([facility]) (test code = [facility] 1538) [id number] CALCIUM, [id number] 05:44:00 Test Item Value Reference Range Interpretation Comments CALCIUM IONIZED (BEAKER) (test 1.09 mmol/L 1.12-1.27 L code = 698) PH, BLOOD (BEAKER) (test code = 7.38 1810) [id number] 05:44:00 Test Item Value Reference Range Interpretation Comments PHOSPHORUS (BEAKER) (test code = 3.5 mg/dL 2.3-4.7 604) [id number] 05:44:00 Test Item Value Reference Range Interpretation Comments MAGNESIUM (BEAKER) (test code = 1.9 mg/dL 1.6-2.6 627) BASIC METABOLIC [id number] 05:44:00 Test Item Value Reference Range Interpretation [...] PATIEN TS. CBC W/PLT COUNT & AUTO [id number] 05:05:00 Test Item Value Reference Range Interpretation [...] LYMPHOCYTES ABSOLUTE COUNT 1.80 K/ L 1.18-3.74 ([facility]) (test code = 414) MONOCYTES ABSOLUTE COUNT (BEAKER) 0.45 K/ L 0.24-0.36 H (test code = 415) EOSINOPHILS ABSOLUTE COUNT 0.25 K/ L 0.04-0.36 ([facility]) (test code = 416) BASOPHILS ABSOLUTE COUNT ([facility]) 0.05 K/ L 0.01-0.08 (test code = 417) IMMATURE GRANULOCYTES-RELATIVE 1 % 0-1 PERCENT ([facility]) (test code = 2801) POCT-GLUCOSE [id number] 21:03:00 Test Item Value Reference Range Interpretation Comments POC-GLUCOSE METER 173 mg/dL 70-110 H TESTED AT [place] [address] ([facility]) (test code = JULIANO Osborne [facility] 1538) [id number] 18:15:00 Test Item Value Reference Range Interpretation Comments ACTIVATED CLOTTING TIME 147 sec TEST ED AT [place] [address] ([facility]) (test code = JULIANO Osborne [facility] 441) [address] [id number] 18:15:00 Test Item Value Reference Range Interpretation Comments ACTIVATED CLOTTING TIME 246 sec TEST ED AT [place] [address] ([facility]) (test code = JULIANO Osborne [place] [address]) [address] POCT-GLUCOSE [id number] 12:39:00 Test Item Value Reference Range Interpretation Comments POC-GLUCOSE METER 219 mg/dL 70-110 H TESTED AT [place] [address] ([facility]) (test code = JULIANO Osborne [facility] 1538) [address] RAD, CHEST, 1 VIEW, NON [id number] 10:11:00Reason for exam:->pl effusionShould this be performed at the bedside?->YesFINAL REPORT Chest one view compared to May 26 Discussion: There is cardiac prominence. Upper lungs are clear. Ill-defined basilar densities are similar probably atelectasis. No gross effusion or pneumothorax with bilateral chest tubes in place. Signed: Jeannette Nava Verified Date/Time: 05/27/2017 10:11:44 Reading Location: [facility] Radiology Reading Room POCT-GLUCOSE METER 2017-05-27 07:05:00 Test Item Value Reference Range Interpretation Comments POC-GLUCOSE METER 167 mg/dL 70-110 H TESTED AT [facility] 6720 (BEAKER) (test code = JULIANO [place] 1538) [address] CALCIUM, [id number] 06:20:00 Test Item Value Reference Range Interpretation Comments CALCIUM IONIZED (BEAKER) (test 0.98 mmol/L 1.12-1.27 L code = 698) PH, BLOOD (BEAKER) (test code = 7.50 1810) [id number] 04:56:00 Test Item Value Reference Range Interpretation Comments PHOSPHORUS (BEAKER) (test code = 2.6 mg/dL 2.3-4.7 604) [id number] 04:56:00 Test Item Value Reference Range Interpretation Comments MAGNESIUM (BEAKER) (test code = 2.0 mg/dL 1.6-2.6 627) BASIC METABOLIC [id number] 04:56:00 Test Item Value Reference Range Interpretation [...] PATIEN TS. CBC W/PLT COUNT & AUTO [id number] 04:36:00 Test Item Value Reference Range Interpretation [...] 417) IMMATURE GRANULOCYTES-RELATIVE 1 % 0-1 PERCENT ([facility]) (test code = 2801) POCT-GLUCOSE [id number] 21:29:00 Test Item Value Reference Range Interpretation Comments POC-GLUCOSE METER 147 mg/dL 70-110 H TESTED AT [place] [address] ([facility]) (test code = JULIANO Osborne [facility] 1538) [address] POCT-GLUCOSE [id number] 17:51:00 Test Item Value Reference Range Interpretation Comments POC-GLUCOSE METER 224 mg/dL 70-110 H TESTED AT [place] [address] ([facility]) (test code = JULIANO Osborne [facility] 1538) [address] POCT-GLUCOSE [id number] 13:53:00 Test Item Value Reference Range Interpretation Comments POC-GLUCOSE METER 182 mg/dL 70-110 H TESTED AT [place] [address] ([facility]) (test code = [facility] Dylon [facility] 1538) [address] RAD, CHEST, 1 VIEW, NON [id number] 08:44:00Reason for exam:->pl effusionShould this be performed [...] No other significant change. Signed: Olaf Ortega [facility] Verified Date/Time: 05/26/2017 08:44:25 Reading Location: [address] Radiology Reading Room POCT- GLUCOSE [id number] 07:43:00 Test Item Value Reference Range Interpretation Comments POC-GLUCOSE METER 113 mg/dL 70-110 H TESTED AT [place] [address] ([facility]) (test code = [facility] Dylon [facility] 1538) [address] CALCIUM, [id number] 06:31:00 Test Item Value Reference Range Interpretation Comments CALCIUM IONIZED ([facility]) (test 1.07 mmol/L 1.12-1.27 L code = 698) PH, BLOOD (BEAKER) (test code = 7.38 1810) [id number] 04:51:00 Test Item Value Reference Range Interpretation Comments PHOSPHORUS (BEAKER) (test code = 3.2 mg/dL 2.3-4.7 604) [id number] 04:51:00 Test Item Value Reference Range Interpretation Comments MAGNESIUM (BEAKER) (test code = 2.1 mg/dL 1.6-2.6 627) BASIC METABOLIC [id number] 04:51:00 Test Item Value Reference Range Interpretation [...] PATIEN TS. CBC W/PLT COUNT & AUTO [id number] 04:27:00 Test Item Value Reference Range Interpretation [...] PERCENT (BEAKER) (test code = 2801) POCT-GLUCOSE [id number] 23:48:00 Test Item Value Reference Range Interpretation Comments POC-GLUCOSE METER 123 mg/dL 70-110 H TESTED AT [facility] 6720 (BEAKER) (test code = JULIANO REYEZ 1538) [address] POCT-GLUCOSE [id number] 16:46:00 Test Item Value Reference Range Interpretation Comments POC-GLUCOSE METER 178 mg/dL 70-110 H TESTED AT [facility] 6720 (BEAKER) (test code = JULIANO [place] 1538) [address] BASIC METABOLIC [id number] 05:53:00 Test Item Value Reference Range Interpretation [...] S NOT APPLICABLE FOR DIALYSIS PATIEN TS. [id number] 05:52:00 Test Item Value Reference Range Interpretation Comments PHOSPHORUS (BEAKER) (test code = 4.2 mg/dL 2.3-4.7 604) [id number] 05:52:00 Test Item Value Reference Range Interpretation Comments MAGNESIUM (BEAKER) (test code = 2.3 mg/dL 1.6-2.6 627) CALCIUM, [id number] 05:27:00 Test Item Value Reference Range Interpretation Comments CALCIUM IONIZED (BEAKER) (test 1.12 mmol/L 1.12-1.27 code = 698) PH, BLOOD (BEAKER) (test code = 7.38 1810) CBC W/PLT COUNT & AUTO [id number] 05:07:00 Test Item Value Reference Range Interpretation [...] = 2801) RAD, CHEST, 1 VIEW, NON [id number] 04:45:00Reason for exam:->pl effusionShould this be performed at the bedside?->YesFINAL REPORT RAD, CHEST, 1 VIEW, NON DEPT INDICATION: pl effusion COMPARISON:Prior day's exam FINDINGS: Portable frontal view of the chest. IMPRESSION: Support Lines: Stable.Lungs and pleura: Unchanged airspace and pleural opacities. No pneumothorax.Heart and mediastinum: Stable contours. Stable surgical changes.Additional findings: None. Signed: JR Boswell Robert MDReport Verified Date/Time: 05/25/2017 04:45:08 Reading Location: [facility] C013Y CT Body Reading Room POCT-GLUCOSE [id number] 01:52:00 Test Item Value Reference Range Interpretation Comments POC-GLUCOSE METER 126 mg/dL 70-110 H TESTED AT [place] [address] ([facility]) (test code = JULIANO Osborne [facility] 1538) [address] POCT-GLUCOSE [id number] 13:07:00 Test Item Value Reference Range Interpretation Comments POC-GLUCOSE METER 118 mg/dL 70-110 H TESTED AT [place] [address] ([facility]) (test code = JULIANO Osborne [facility] 1538) [address] BRONCHIAL CULTURE + GRAM [id number] 11:35:00 Test Item Value Reference Range Interpretation Comments CULTURE ([facility]) (test code = 1095) Amikacin [...] <1+ gram (BEAKER) (test code = positive 486224) cocci in pairs GRAM STAIN RESULT 1+ gram (BEAKER) (test code = variable rods 926560) 1+ Normal respiratory todd presentRAD, CHEST, 1 VIEW, NON [id number] 06:50:00Reason for exam:->pl effusionShould this be performed at the bedside?->YesFINAL REPORT RAD, CHEST, 1 VIEW, NON DEPT INDICATION: pl effusion COMPARISON:Prior day's exam FINDINGS: Portable frontal view of the chest. IMPRESSION: Support Lines: Stable.Lungs and pleura: Unchanged airspace and pleural opacities. No pneumothorax.Heart and mediastinum: Stable contours. Stable surgical changes.Additional findings: None. Signed: JR Boswell Robert MDReport Verified Date/Time: 05/24/2017 06:50:08 Reading Location: [facility] C013Y CT Body Reading Room BASIC METABOLIC [id number] 04:19:00 Test Item Value Reference Range Interpretation [...] NOT APPLICABLE FOR DIALYSIS PATIEN TS. CALCIUM, [id number] 04:16:00 Test Item Value Reference Range Interpretation Comments CALCIUM IONIZED (BEAKER) (test 1.06 mmol/L 1.12-1.27 L code = 698) PH, BLOOD (BEAKER) (test code = 7.40 1810) [id number] 04:11:00 Test Item Value Reference Range Interpretation Comments PHOSPHORUS (BEAKER) (test code = 6.0 mg/dL 2.3-4.7 H 604) [id number] 04:11:00 Test Item Value Reference Range Interpretation Comments MAGNESIUM (BEAKER) (test code = 2.4 mg/dL 1.6-2.6 627) CBC W/PLT COUNT & AUTO [id number] 03:50:00 Test Item Value Reference Range Interpretation [...] PERCENT (BEAKER) (test code = 2801) POCT-GLUCOSE [id number] 20:45:00 Test Item Value Reference Range Interpretation Comments POC-GLUCOSE METER 143 mg/dL 70-110 H TESTED AT [place] [address] ([facility]) (test code = [facility] 1538) [address] POCT-GLUCOSE [id number] 20:45:00 Test Item Value Reference Range Interpretation Comments POC-GLUCOSE METER 145 mg/dL 70-110 H TESTED AT [place] [id number] ([facility]) (test code = [facility] 1538) [address] [id number] 13:37:00 Test Item Value Reference Range Interpretation Comments PREALBUMIN (AKER) 10 mg/dL 14-45 L Specimen slightly (test code = 586) hemolyzed OXYGEN SATURATION, [id number] 12:31:00 Test Item Value Reference Range Interpretation Comments O2 SATURATION (MEASURED) (AKER) 94.5 % (test code = 1455) [id number] 11:02:00 Test Item Value Reference Range Interpretation Comments PREALBUMIN (BEAKER) (test code = 10 mg/dL 14-45 L 586) RAD, CHEST, 1 VIEW, NON [id number] 05:14:00while patient is intubated or has chest [...] MDReport Verified Date/Time: 05/23/2017 05:14:04 Reading Location: [address] Body Reading Room BASIC METABOLIC [id number] 03:48:00 Test Item Value Reference Range Interpretation [...] S NOT APPLICABLE FOR DIALYSIS PATIEN TS. [id number] 03:46:00 Test Item Value Reference Range Interpretation Comments MAGNESIUM (BEAKER) 2.4 mg/dL 1.6-2.6 Specimen slightly (test code = 627) hemolyzed [id number] 03:46:00 Test Item Value Reference Range Interpretation Comments PHOSPHORUS (BEAKER) 6.5 mg/dL 2.3-4.7 H Specimen slightly (test code = 604) hemolyzed CBC W/PLT COUNT & AUTO [id number] 03:26:00 Test Item Value Reference Range Interpretation [...] (BEAKER) (test code = 2801) BLOOD GAS, [id number] 03:18:00 Test Item Value Reference Range Interpretation [...] (test code = 1819) 36.0 % CALCIUM, [id number] 16:32:00 Test Item Value Reference Range Interpretation Comments CALCIUM IONIZED (BEAKER) (test 1.11 mmol/L 1.12-1.27 L code = 698) PH, BLOOD (BEAKER) (test code = 7.39 1810) BASIC METABOLIC [id number] 15:43:00 Test Item Value Reference Range Interpretation [...] NOT APPLICABLE FOR DIALYSIS PATIEN TS. POCT-GLUCOSE [id number] 12:53:00 Test Item Value Reference Range Interpretation Comments POC-GLUCOSE METER 118 mg/dL 70-110 H TESTED AT [place] [address] ([facility]) (test code = [facility] 1538) [address] BLOOD GAS, [id number] 10:42:00 Test Item Value Reference Range Interpretation [...] (test code = 1819) 40.0 % POCT-GLUCOSE [id number] 06:46:00 Test Item Value Reference Range Interpretation Comments POC-GLUCOSE METER 106 mg/dL 70-110 TESTED AT [place] [address] ([facility]) (test code = [facility] 1538) [address] RAD, CHEST, 1 VIEW, NON [id number] 05:05:00while patient is intubated or has chest [...] MDRepemily Verified Date/Time: 05/22/2017 05:05:00 Reading Location: [facility] B1 C013Y CT Body ReadingRoom BASIC METABOLIC [id number] 05:00:00 Test Item Value Reference Range Interpretation [...] S NOT APPLICABLE FOR DIALYSIS PATIEN TS. [id number] 04:41:00 Test Item Value Reference Range Interpretation Comments PHOSPHORUS (BEAKER) (test code = 6.4 mg/dL 2.3-4.7 H 604) [id number] 04:41:00 Test Item Value Reference Range Interpretation Comments MAGNESIUM (BEAKER) (test code = 2.6 mg/dL 1.6-2.6 627) CALCIUM, [id number] 04:26:00 Test Item Value Reference Range Interpretation Comments CALCIUM IONIZED (BEAKER) (test 1.09 mmol/L 1.12-1.27 L code = 698) PH, BLOOD (BEAKER) (test code = 7.40 1810) OXYGEN SATURATION, [id number] 04:25:00 Test Item Value Reference Range Interpretation Comments O2 SATURATION (MEASURED) (BEAKER) 77.0 % (test code = 1455) CBC W/PLT COUNT & AUTO [id number] 04:17:00 Test Item Value Reference Range Interpretation [...] code = 2801) LACTIC ACID, ARTERIAL, WHOLE [id number] 00:07:00 Test Item Value Reference Range Interpretation Comments LACTATE BLOOD 1.0 mmol/L 0.5-2.2 Specimen sligh tly ARTERIAL (2) (BEAKER) hemoly zed (test code = 2874) Effective 08/02/2015: Units/Reference Range ChangeNew: 0.5-2.2 mmol/L Previous: 5-20 mg/dLPOCT-GLUCOSE [id number] 23:47:00 Test Item Value Reference Range Interpretation Comments POC-GLUCOSE METER 180 mg/dL 70-110 H TESTED AT [facility] 6720 (BEAKER) (test code = MATTHIASAMANDA REYEZ 1538) [address] BLOOD GAS, [id number] 23:46:00 Test Item Value Reference Range Interpretation [...] code = 1819) 100.0 % SODIUM NA-STAT [id number] 23:46:00 Test Item Value Reference Range Interpretation Comments SODIUM (BEAKER) (test code = 381) 134 meq/L 135-148 L GLUCOSE-STAT [id number] 23:46:00 Test Item Value Reference Range Interpretation Comments GLUCOSE RANDOM (BEAKER) (test code 119 mg/dL 70-110 H = 652) HGB/HCT (H&H) - STAT [id number] 23:46:00 Test Item Value Reference Range Interpretation Comments HEMOGLOBIN (BEAKER) (test code = 8.8 g/dL 12.0-15.0 L 410) HEMATOCRIT (BEAKER) (test code = 26.0 % 36.0-45.0 L 411) OXYGEN SATURATION, [id number] 23:45:00 Test Item Value Reference Range Interpretation Comments O2 SATURATION (MEASURED) (BEAKER) 68.1 % (test code = 1455) POTASSIUM-STAT [id number] 23:45:00 Test Item Value Reference Range Interpretation Comments POTASSIUM (BEAKER) (test code = 5.5 meq/L 3.6-5.5 379) POCT-GLUCOSE [id number] 20:58:00 Test Item Value Reference Range Interpretation Comments POC-GLUCOSE METER 133 mg/dL 70-110 H TESTED AT [facility] 6720 ([facility]) (test code = JULIANO [place] 1538) [address] POCT-GLUCOSE [id number] 17:58:00 Test Item Value Reference Range Interpretation Comments POC-GLUCOSE METER 210 mg/dL 70-110 H TESTED AT [facility] 6720 ([facility]) (test code = JULIANO [place] 1538) [address] POCT-GLUCOSE [id number] 17:58:00 Test Item Value Reference Range Interpretation Comments POC-GLUCOSE METER 211 mg/dL 70-110 H TESTED AT [facility] 6720 ([facility]) (test code = JULIANO [place] 1538) [address] POCT-GLUCOSE [id number] 17:58:00 Test Item Value Reference Range Interpretation Comments POC-GLUCOSE METER 232 mg/dL 70-110 H TESTED AT [facility] 6720 ([facility]) (test code = JULIANO [place] 1538) [address] POCT-GLUCOSE [id number] 17:58:00 Test Item Value Reference Range Interpretation Comments POC-GLUCOSE METER 262 mg/dL 70-110 H TESTED AT [place] [address] (BEAKER) (test code = [facility] 1538) [address] BLOOD GAS, [id number] 17:01:00 Test Item Value Reference Range Interpretation [...] (test code = 1819) 60.0 % POTASSIUM-STAT [id number] 17:00:00 Test Item Value Reference Range Interpretation Comments POTASSIUM (BEAKER) (test code = 4.8 meq/L 3.6-5.5 379) POCT-GLUCOSE [id number] 15:52:00 Test Item Value Reference Range Interpretation Comments POC-GLUCOSE METER 267 mg/dL 70-110 H TESTED AT [place] [address] (BEAKER) (test code = [facility] 1538) [address] POCT-GLUCOSE [id number] 14:42:00 Test Item Value Reference Range Interpretation Comments POC-GLUCOSE METER 231 mg/dL 70-110 H TESTED AT [place] [address] (BEAKER) (test code = [facility] 1538) [address] BODY FLUID CELL COUNT WITH [id number] 14:41:00 Test Item Value Reference Range Interpretation [...] Tube (test code = 2873) BASIC METABOLIC [id number] 14:11:00 Test Item Value Reference Range Interpretation [...] S NOT APPLICABLE FOR DIALYSIS PATIEN TS. [id number] 14:08:00 Test Item Value Reference Range Interpretation Comments PHOSPHORUS (BEAKER) (test code = 7.2 mg/dL 2.3-4.7 H 604) [id number] 14:08:00 Test Item Value Reference Range Interpretation Comments MAGNESIUM (BEAKER) (test code = 2.6 mg/dL 1.6-2.6 627) POCT-GLUCOSE [id number] 12:49:00 Test Item Value Reference Range Interpretation Comments POC-GLUCOSE METER 224 mg/dL 70-110 H TESTED AT [facility] 6720 (BEAKER) (test code = JULIANO REYEZ 1538) [address] POCT-GLUCOSE [id number] 12:49:00 Test Item Value Reference Range Interpretation Comments POC-GLUCOSE METER 248 mg/dL 70-110 H TESTED AT [facility] 6720 (BEAKER) (test code = JULIANO [place] 1538) [address] RAD, CHEST, 1 VIEW, NON [id number] 12:32:00Reason for exam:->re-intubationShould this be performed at [...] pneumothorax is grossly unchanged. Signed: Mona White [facility] Verified Date/Time: 05/21/2017 12:32:08 Reading Location: [facility] Radiology Reading Room POTASSIUM-STAT [id number] 12:28:00 Test Item Value Reference Range Interpretation Comments POTASSIUM (BEAKER) (test code = 5.5 meq/L 3.6-5.5 379) BLOOD GAS, [id number] 12:28:00 Test Item Value Reference Range Interpretation [...] code = 1819) 100.0 % BLOOD GAS, [id number] 10:53:00 Test Item Value Reference Range Interpretation [...] 36.0 % RAD, CHEST, 1 VIEW, NON [id number] 08:46:00while patient is intubated or has chest [...] MDReport Verified Date/Time: 05/21/2017 08:46:27 Reading Location: [facility] Radiology Reading Room BLOOD GAS, [id number] 05:41:00 Test Item Value Reference Range Interpretation [...] (BEAKER) (test code = 1819) 40 CALCIUM, [id number] 04:35:00 Test Item Value Reference Range Interpretation Comments CALCIUM IONIZED (BEAKER) (test 1.13 mmol/L 1.12-1.27 code = 698) PH, BLOOD (BEAKER) (test code = 7.32 1810) BLOOD GAS, [id number] 04:28:00 Test Item Value Reference Range Interpretation [...] (BEAKER) (test code = 1819) 40.0 % [id number] 04:20:00 Test Item Value Reference Range Interpretation Comments PHOSPHORUS (BEAKER) (test code = 6.2 mg/dL 2.3-4.7 H 604) [id number] 04:20:00 Test Item Value Reference Range Interpretation Comments MAGNESIUM (BEAKER) (test code = 2.4 mg/dL 1.6-2.6 627) HEPATIC FUNCTION [id number] 04:20:00 Test Item Value Reference Range Interpretation [...] = 11 U/L 6-55 347) BASIC METABOLIC [id number] 04:20:00 Test Item Value Reference Range Interpretation [...] APPLICABLE FOR DIALYSIS PATIEN TS. OXYGEN SATURATION, [id number] 04:18:00 Test Item Value Reference Range Interpretation Comments O2 SATURATION (MEASURED) (BEAKER) 68.0 % (test code = 1455) LACTIC ACID, ARTERIAL, WHOLE [id number] 04:12:00 Test Item Value Reference Range Interpretation Comments LACTATE BLOOD ARTERIAL (2) 1.0 mmol/L 0.5-2.2 (BEAKER) (test code = 2874) Effective 08/02/2015: Units/Reference Range ChangeNew: 0.5-2.2 mmol/L Previous: 5-20 mg/dLCBC W/PLT COUNT & AUTO [id number] 04:00:00 Test Item Value Reference Range Interpretation [...] (BEAKER) (test code = 2801) BLOOD GAS, [id number] 00:06:00 Test Item Value Reference Range Interpretation [...] (BEAKER) (test code = 1819) 40.0 % [id number] 18:55:00 Test Item Value Reference Range Interpretation Comments PHOSPHORUS (BEAKER) (test code = 4.8 mg/dL 2.3-4.7 H 604) [id number] 18:55:00 Test Item Value Reference Range Interpretation Comments MAGNESIUM (BEAKER) (test code = 2.3 mg/dL 1.6-2.6 627) BASIC METABOLIC [id number] 18:55:00 Test Item Value Reference Range Interpretation [...] DIALYSIS PATIEN TS. LACTIC ACID, ARTERIAL, WHOLE [id number] 18:53:00 Test Item Value Reference Range Interpretation Comments LACTATE BLOOD 0.9 mmol/L 0.5-2.2 Specimen sligh tly ARTERIAL (2) (BEAKER) hemoly zed (test code = 2874) Effective 08/02/2015: Units/Reference Range ChangeNew: 0.5-2.2 mmol/L Previous: 5-20 mg/dLRAD, CHEST, 1 VIEW, NON [id number] 18:44:00Reason for exam:- >postop cardiacShould this be [...] MDReport Verified Date/Time: 05/20/2017 18:44:30 Reading Location: [facility] B1 C013W Consult Reading Room Electronically signed by: MIGUEL BHAKTA M.D. on05/20/2017 06:44 PMCBC W/PLT COUNT & AUTO [id number] 18:38:00 Test Item Value Reference Range Interpretation [...] (BEAKER) (test code = 2801) OXYGEN SATURATION, [id number] 18:36:00 Test Item Value Reference Range Interpretation Comments O2 SATURATION (MEASURED) (BEAKER) 72.5 % (test code = 1455) From distal port of IJ central venous catheterSODIUM NA-STAT [id number] 18:30:00 Test Item Value Reference Range Interpretation Comments SODIUM (BEAKER) (test code = 381) 132 meq/L 135-148 L HGB/HCT (H&H) - STAT [id number] 18:30:00 Test Item Value Reference Range Interpretation Comments HEMOGLOBIN (BEAKER) (test code = 9.4 g/dL 12.0-15.0 L 410) HEMATOCRIT (BEAKER) (test code = 28.0 % 36.0-45.0 L 411) GLUCOSE-STAT [id number] 18:30:00 Test Item Value Reference Range Interpretation Comments GLUCOSE RANDOM (BEAKER) (test code 159 mg/dL 70-110 H = 652) BLOOD GAS, [id number] 18:30:00 Test Item Value Reference Range Interpretation [...] (test code = 1819) 60.0 % CALCIUM, [id number] 18:30:00 Test Item Value Reference Range Interpretation Comments CALCIUM IONIZED (BEAKER) (test 0.94 mmol/L 1.12-1.27 L code = 698) PH, BLOOD (BEAKER) (test code = 7.34 1810) POTASSIUM-STAT [id number] 18:28:00 Test Item Value Reference Range Interpretation [...] (test 0.0 % 0.0-5.0 code = 1414) [id number] 17:53:00 Test Item Value Reference Range Interpretation Comments ACTIVATED CLOTTING TIME 103 sec TEST ED AT [place] [address] ([facility]) (test code = MATTHIASAMANDA [place] 441) [address] [id number] 17:53:00 Test Item Value Reference Range Interpretation Comments ACTIVATED CLOTTING TIME 466 sec TEST ED AT [place] [address] ([facility]) (test code = MATTHIASAMANDA [place] 441) [address] [id number] 17:53:00 Test Item Value Reference Range Interpretation Comments ACTIVATED CLOTTING TIME 543 sec TEST ED AT [place] [address] ([facility]) (test code = [place]ASAMANDA [place] 441) [address] [id number] 17:53:00 Test Item Value Reference Range Interpretation Comments ACTIVATED CLOTTING TIME 549 sec TEST ED AT [place] [address] ([facility]) (test code = MATTHIASAMANDA Osborne [place] 441) [address] [id number] 17:53:00 Test Item Value Reference Range Interpretation Comments ACTIVATED CLOTTING TIME 632 sec TEST ED AT [place] [address] ([facility]) (test code = [place]AMANDA [place] [address]) [id number] 17:53:00 Test Item Value Reference Range Interpretation Comments ACTIVATED CLOTTING TIME 494 sec TEST ED AT [place] [address] ([facility]) (test code = JULIANO Osborne [place] [address]) [id number] 17:53:00 Test Item Value Reference Range Interpretation Comments ACTIVATED CLOTTING TIME 587 sec TEST ED AT [place] [address] ([facility]) (test code = JULIANO Osborne [place] [address]) [id number] 17:53:00 Test Item Value Reference Range Interpretation Comments ACTIVATED CLOTTING TIME 626 sec TEST ED AT [place] [address] ([facility]) (test code = JULIANO Osborne [place] [address]) [id number] 17:52:00 Test Item Value Reference Range Interpretation Comments ACTIVATED CLOTTING TIME 808 sec TEST ED AT [place] [address] ([facility]) (test code = JULIANO Osborne [place] [address]) [id number] 16:54:00 Test Item Value Reference Range Interpretation Comments PARTIAL THROMBOPLASTIN TIME 40.2 seconds 22.5-36.0 H ([facility]) (test code = 760) [id number] 16:53:00 Test Item Value Reference Range Interpretation Comments FIBRINOGEN LEVEL ([facility]) (test 306 mg/dl 225-434 code = 658) PROTHROMBIN [id number] 16:50:00 Test Item Value Reference Range Interpretation Comments PROTIME ([facility]) (test code = 19.6 seconds 11.7-14.7 H 759) INR ([facility]) (test code = 370) 1.7 <=5.9 RECOMMENDED COUMADIN/WARFARIN INR THERAPY RANGESSTANDARD DOSE: 2.0 - 3.0 Includes: PROPHYLAXIS forvenous thrombosis, systemic embolization; TREATMENT for venous thrombosis and/or pulmonary embolus.HIGH RISK: Target INR is 2.5-3.5 for patients with mechanical heart valves.PLATELET [id number] 16:45:00 Test Item Value Reference Range Interpretation Comments PLATELET COUNT ([facility]) (test 136 K/CU MM 150-450 L code = 756) POTASSIUM-STAT [id number] 16:15:00 Test Item Value Reference Range Interpretation Comments POTASSIUM ([facility]) (test code = 4.9 meq/L 3.6-5.5 379) BLOOD GAS, [id number] 16:15:00 Test Item Value Reference Range Interpretation [...] code = 1819) 100.0 % SODIUM NA-STAT [id number] 16:15:00 Test Item Value Reference Range Interpretation Comments SODIUM (BEAKER) (test code = 381) 131 meq/L 135-148 L GLUCOSE-STAT [id number] 16:15:00 Test Item Value Reference Range Interpretation Comments GLUCOSE RANDOM (BEAKER) (test code 198 mg/dL 70-110 H = 652) HGB/HCT (H&H) - STAT [id number] 16:15:00 Test Item Value Reference Range Interpretation Comments HEMOGLOBIN (BEAKER) (test code = 7.5 g/dL 12.0-15.0 L 410) HEMATOCRIT (BEAKER) (test code = 22.0 % 36.0-45.0 L 411) CALCIUM, [id number] 16:14:00 Test Item Value Reference Range Interpretation Comments CALCIUM IONIZED (BEAKER) (test 0.91 mmol/L 1.12-1.27 L code = 698) PH, BLOOD (BEAKER) (test code = 7.39 1810) BLOOD GAS, [id number] 15:39:00 Test Item Value Reference Range Interpretation [...] code = 1819) 70.0 % SODIUM NA-STAT [id number] 15:39:00 Test Item Value Reference Range Interpretation Comments SODIUM (BEAKER) (test code = 381) 131 meq/L 135-148 L GLUCOSE-STAT [id number] 15:39:00 Test Item Value Reference Range Interpretation Comments GLUCOSE RANDOM (BEAKER) (test code 186 mg/dL 70-110 H = 652) HGB/HCT (H&H) - STAT [id number] 15:39:00 Test Item Value Reference Range Interpretation Comments HEMOGLOBIN (BEAKER) (test code = 7.5 g/dL 12.0-15.0 L 410) HEMATOCRIT (BEAKER) (test code = 22.0 % 36.0-45.0 L 411) POTASSIUM-STAT [id number] 15:38:00 Test Item Value Reference Range Interpretation Comments POTASSIUM (BEAKER) (test code = 5.3 meq/L 3.6-5.5 379) BLOOD GAS, [id number] 15:24:00 Test Item Value Reference Range Interpretation [...] code = 1819) 70.0 % SODIUM NA-STAT [id number] 15:24:00 Test Item Value Reference Range Interpretation Comments SODIUM (BEAKER) (test code = 381) 130 meq/L 135-148 L GLUCOSE-STAT [id number] 15:24:00 Test Item Value Reference Range Interpretation Comments GLUCOSE RANDOM (BEAKER) (test code 189 mg/dL 70-110 H = 652) HGB/HCT (H&H) - STAT [id number] 15:24:00 Test Item Value Reference Range Interpretation Comments HEMOGLOBIN (BEAKER) (test code = 6.7 g/dL 12.0-15.0 L 410) HEMATOCRIT (BEAKER) (test code = 20.0 % 36.0-45.0 L 411) POTASSIUM-STAT [id number] 15:23:00 Test Item Value Reference Range Interpretation Comments POTASSIUM (BEAKER) (test code = 5.4 meq/L 3.6-5.5 379) BLOOD GAS, [id number] 15:07:00 Test Item Value Reference Range Interpretation [...] code = 1819) 70.0 % SODIUM NA-STAT [id number] 15:07:00 Test Item Value Reference Range Interpretation Comments SODIUM (BEAKER) (test code = 381) 129 meq/L 135-148 L GLUCOSE-STAT [id number] 15:07:00 Test Item Value Reference Range Interpretation Comments GLUCOSE RANDOM (BEAKER) (test code 172 mg/dL 70-110 H = 652) HGB/HCT (H&H) - STAT [id number] 15:07:00 Test Item Value Reference Range Interpretation Comments HEMOGLOBIN (BEAKER) (test code = 7.1 g/dL 12.0-15.0 L 410) HEMATOCRIT (BEAKER) (test code = 21.0 % 36.0-45.0 L 411) POTASSIUM-STAT [id number] 15:04:00 Test Item Value Reference Range Interpretation Comments POTASSIUM (BEAKER) (test code = 5.0 meq/L 3.6-5.5 379) BLOOD GAS, [id number] 14:21:00 Test Item Value Reference Range Interpretation [...] code = 1819) 70.0 % SODIUM NA-STAT [id number] 14:21:00 Test Item Value Reference Range Interpretation Comments SODIUM (BEAKER) (test code = 381) 133 meq/L 135-148 L GLUCOSE-STAT [id number] 14:21:00 Test Item Value Reference Range Interpretation Comments GLUCOSE RANDOM (BEAKER) (test code 160 mg/dL 70-110 H = 652) HGB/HCT (H&H) - STAT [id number] 14:21:00 Test Item Value Reference Range Interpretation Comments HEMOGLOBIN (BEAKER) (test code = 7.5 g/dL 12.0-15.0 L 410) HEMATOCRIT (BEAKER) (test code = 22.0 % 36.0-45.0 L 411) POTASSIUM-STAT [id number] 14:20:00 Test Item Value Reference Range Interpretation Comments POTASSIUM (BEAKER) (test code = 4.7 meq/L 3.6-5.5 379) BLOOD GAS, [id number] 13:58:00 Test Item Value Reference Range Interpretation [...] code = 1819) 80.0 % SODIUM NA-STAT [id number] 13:58:00 Test Item Value Reference Range Interpretation Comments SODIUM (BEAKER) (test code = 381) 132 meq/L 135-148 L GLUCOSE-STAT [id number] 13:58:00 Test Item Value Reference Range Interpretation Comments GLUCOSE RANDOM (BEAKER) (test code 166 mg/dL 70-110 H = 652) HGB/HCT (H&H) - STAT [id number] 13:58:00 Test Item Value Reference Range Interpretation Comments HEMOGLOBIN (BEAKER) (test code = 7.5 g/dL 12.0-15.0 L 410) HEMATOCRIT (BEAKER) (test code = 22.0 % 36.0-45.0 L 411) POTASSIUM-STAT [id number] 13:57:00 Test Item Value Reference Range Interpretation Comments POTASSIUM (BEAKER) (test code = 4.7 meq/L 3.6-5.5 379) BLOOD GAS, [id number] 13:35:00 Test Item Value Reference Range Interpretation [...] (test code = 1819) 80.0 % GLUCOSE-STAT [id number] 13:35:00 Test Item Value Reference Range Interpretation Comments GLUCOSE RANDOM (BEAKER) (test code 130 mg/dL 70-110 H = 652) HGB/HCT (H&H) - STAT [id number] 13:35:00 Test Item Value Reference Range Interpretation Comments HEMOGLOBIN (BEAKER) (test code = 6.7 g/dL 12.0-15.0 L 410) HEMATOCRIT (BEAKER) (test code = 20.0 % 36.0-45.0 L 411) SODIUM NA-STAT [id number] 13:35:00 Test Item Value Reference Range Interpretation Comments SODIUM (BEAKER) (test code = 381) 133 meq/L 135-148 L POTASSIUM-STAT [id number] 13:34:00 Test Item Value Reference Range Interpretation Comments POTASSIUM (BEAKER) (test code = 4.2 meq/L 3.6-5.5 379) BLOOD GAS, [id number] 13:16:00 Test Item Value Reference Range Interpretation [...] code = 1819) 80.0 % SODIUM NA-STAT [id number] 13:16:00 Test Item Value Reference Range Interpretation Comments SODIUM (BEAKER) (test code = 381) 133 meq/L 135-148 L HGB/HCT (H&H) - STAT [id number] 13:16:00 Test Item Value Reference Range Interpretation Comments HEMOGLOBIN (BEAKER) (test code = 6.3 g/dL 12.0-15.0 L 410) HEMATOCRIT (BEAKER) (test code = 19.0 % 36.0-45.0 L 411) CALCIUM, [id number] 13:15:00 Test Item Value Reference Range Interpretation Comments CALCIUM IONIZED (BEAKER) (test 0.98 mmol/L 1.12-1.27 L code = 698) PH, BLOOD (BEAKER) (test code = 7.34 1810) BLOOD GAS, [id number] 13:15:00 Test Item Value Reference Range Interpretation [...] (test code = 1819) 80.0 % GLUCOSE-STAT [id number] 13:14:00 Test Item Value Reference Range Interpretation Comments GLUCOSE RANDOM (BEAKER) (test code = 92 mg/dL 70-110 652) POTASSIUM-STAT [id number] 13:14:00 Test Item Value Reference Range Interpretation Comments POTASSIUM (BEAKER) (test code = 3.9 meq/L 3.6-5.5 379) BLOOD GAS, [id number] 10:54:00 Test Item Value Reference Range Interpretation [...] 1819) 100.0 % HGB/HCT (H&H) - STAT [id number] 10:54:00 Test Item Value Reference Range Interpretation Comments HEMOGLOBIN (BEAKER) (test code = 9.3 g/dL 12.0-15.0 L 410) HEMATOCRIT (BEAKER) (test code = 27.0 % 36.0-45.0 L 411) SODIUM NA-STAT [id number] 10:54:00 Test Item Value Reference Range Interpretation Comments SODIUM (BEAKER) (test code = 381) 132 meq/L 135-148 L GLUCOSE-STAT [id number] 10:52:00 Test Item Value Reference Range Interpretation Comments GLUCOSE RANDOM (BEAKER) (test code = 94 mg/dL 70-110 652) POTASSIUM-STAT [id number] 10:52:00 Test Item Value Reference Range Interpretation Comments POTASSIUM (BEAKER) (test code = 4.0 meq/L 3.6-5.5 379) HEMOGLOBIN [id number] 09:50:00 Test Item Value Reference Range Interpretation Comments HEMOGLOBIN A1C (BEAKER) (test code = 10.6 % 4.3-6.1 H 368) PLATELET AGGREGATION: FUNCTION [id number] 08:27:00 Test Item Value Reference Range Interpretation Comments WEAK ADP 63 % 60-91 RESULT(BEAKER) (test code = 2135) PLATELET FUNCTION 60-100% indicates SCREEN INTERP (BEAKER) normal platelet (test code = 2173) function [id number] Toshia Post MD (BEAKER) (test code = (electronic signature) 7410) PLATELET COUNT AGG 198 K/CU MM 150-450 (BEAKER) (test code = 0311) for patients on clopidogrel in past two weeksPOCT-GLUCOSE [id number] 08:11:00 Test Item Value Reference Range Interpretation Comments POC-GLUCOSE METER 116 mg/dL 70-110 H TESTED AT [facility] 67[facility] (BEAKER) (test code = [place] 1538) [address] [id number] 07:10:00 Test Item Value Reference Range Interpretation Comments PHOSPHORUS (BEAKER) (test code = 4.5 mg/dL 2.3-4.7 604) [id number] 07:10:00 Test Item Value Reference Range Interpretation Comments MAGNESIUM (BEAKER) (test code = 2.1 mg/dL 1.6-2.6 627) BASIC METABOLIC [id number] 07:10:00 Test Item Value Reference Range Interpretation [...] = 700) CBC W/PLT COUNT & AUTO [id number] 06:46:00 Test Item Value Reference Range Interpretation [...] PERCENT (BEAKER) (test code = 2801) CALCIUM, [id number] 06:40:00 Test Item Value Reference Range Interpretation Comments CALCIUM IONIZED (BEAKER) (test 1.06 mmol/L 1.12-1.27 L code = 698) PH, BLOOD (BEAKER) (test code = 7.39 1810) POCT-GLUCOSE [id number] 23:22:00 Test Item Value Reference Range Interpretation Comments POC-GLUCOSE METER 165 mg/dL 70-110 H TESTED AT [facility] 67[address] (BEAKER) (test code = [place] 1538) [address] URINE PROTEIN ELECTROPHORESIS, [id number] 18:02:00 Test Item Value Reference Range Interpretation Comments PROTEIN, URINE 305 mg/dL 0-14 H (BEAKER) (test code = 1569) ALBUMIN URINE ELP 70.9 % (BEAKER) (test code = 1018) GAMMA GLOBULIN URINE 29.1 % (BEAKER) (test code = 1015) UPEP, ID-438 ([facility]) No monoclonal bands (test code = 2604) detected. [id number] Rocio Galindo MD ([facility]) (test code = (electronic signature) 2603) PROTEIN ELECTROPHORESIS, [id number] 17:57:00 Test Item Value Reference Range Interpretation [...] all globulin fractions. No monoclonal bands detected. [id number] Rocio Galindo MD ([facility]) (test code = (electronic signature) 3792) PROTEIN TOTAL SERUM, 5.5 gm/dL 6.0-8.3 L SPEP (BEAKER) (test code = 6040) POCT-GLUCOSE [id number] 17:15:00 Test Item Value Reference Range Interpretation Comments POC-GLUCOSE METER 209 mg/dL 70-110 H TESTED AT [facility] 67 ([facility] (test code = JULIANO Osborne [place] 1538) [address] BLOOD GAS, [id number] 15:54:00 Test Item Value Reference Range Interpretation [...] 36.0 % RAD, CHEST, 1 VIEW, NON [id number] 14:07:00Reason for exam:->SOB, hypoxemiaShould this be performed [...] Regan Cespedes Verified Date/Time: 05/19/2017 14:07:07 Reading Location:[facility] [id number] Consult Reading Room POCT-GLUCOSE [id number] 11:26:00 Test Item Value Reference Range Interpretation Comments POC-GLUCOSE METER 262 mg/dL 70-110 H TESTED AT [facility] 6720 ([facility] (test code = JULIANO Osborne [facility] 1538) [address] POCT-GLUCOSE [id number] 07:37:00 Test Item Value Reference Range Interpretation Comments POC-GLUCOSE METER 170 mg/dL 70-110 H TESTED AT [facility] 6720 (BEAKER) (test code = [place] 1538) [address] CALCIUM, [id number] 06:06:00 Test Item Value Reference Range Interpretation Comments CALCIUM IONIZED (BEAKER) (test 1.05 mmol/L 1.12-1.27 L code = 698) PH, BLOOD (BEAKER) (test code = 7.41 1810) [id number] 05:38:00 Test Item Value Reference Range Interpretation Comments PHOSPHORUS (BEAKER) (test code = 3.9 mg/dL 2.3-4.7 604) [id number] 05:38:00 Test Item Value Reference Range Interpretation Comments MAGNESIUM (BEAKER) (test code = 2.2 mg/dL 1.6-2.6 627) BASIC METABOLIC [id number] 05:38:00 Test Item Value Reference Range Interpretation [...] PATIEN TS. CBC W/PLT COUNT & AUTO [id number] 05:09:00 Test Item Value Reference Range Interpretation [...] PERCENT (BEAKER) (test code = 2801) POCT-GLUCOSE [id number] 22:08:00 Test Item Value Reference Range Interpretation Comments POC-GLUCOSE METER 263 mg/dL 70-110 H TESTED AT [place] [address] (BEAKER) (test code = JULIANO Osborne [facility] 1538) [address] POCT-GLUCOSE [id number] 17:20:00 Test Item Value Reference Range Interpretation Comments POC-GLUCOSE METER 233 mg/dL 70-110 H TESTED AT [place] [address] (BEAKER) (test code = JULIANO Osborne [facility] 1538) [address] POCT-GLUCOSE [id number] 08:28:00 Test Item Value Reference Range Interpretation Comments POC-GLUCOSE METER 154 mg/dL 70-110 H TESTED AT [place] [address] (BEAKER) (test code = [facility] Dylon [facility] 1538) [address] BASIC METABOLIC [id number] 06:41:00 Test Item Value Reference Range Interpretation [...] S NOT APPLICABLE FOR DIALYSIS PATIEN TS. [id number] 06:35:00 Test Item Value Reference Range Interpretation Comments PHOSPHORUS (BEAKER) (test code = 4.1 mg/dL 2.3-4.7 604) [id number] 06:35:00 Test Item Value Reference Range Interpretation Comments MAGNESIUM (BEAKER) (test code = 2.1 mg/dL 1.6-2.6 627) CALCIUM, [id number] 06:22:00 Test Item Value Reference Range Interpretation Comments CALCIUM IONIZED (BEAKER) (test 1.10 mmol/L 1.12-1.27 L code = 698) PH, BLOOD (BEAKER) (test code = 7.38 1810) CBC W/PLT COUNT & AUTO [id number] 06:04:00 Test Item Value Reference Range Interpretation [...] EOSINOPHILS ABSOLUTE COUNT 0.24 K/ L 0.04-0.36 ([facility]) (test code = 416) BASOPHILS ABSOLUTE COUNT ([facility]) 0.06 K/ L 0.01-0.08 (test code = 417) IMMATURE GRANULOCYTES-RELATIVE 0 % 0-1 PERCENT ([facility]) (test code = 2801) POCT-GLUCOSE [id number] 03:44:00 Test Item Value Reference Range Interpretation Comments POC-GLUCOSE METER 220 mg/dL 70-110 H TESTED AT [place] [address] ([facility]) (test code = [employer] [place] 1538) [address] POCT-GLUCOSE [id number] 18:27:00 Test Item Value Reference Range Interpretation Comments POC-GLUCOSE METER 256 mg/dL 70-110 H TESTED AT [place] [address] ([facility]) (test code = [employer] [place] 1538) [address] POCT-GLUCOSE [id number] 15:45:00 Test Item Value Reference Range Interpretation Comments POC-GLUCOSE METER 278 mg/dL 70-110 H TESTED AT [place] [address] ([facility]) (test code = [employer] [place] 1538) [address] POCT-GLUCOSE [id number] 13:22:00 Test Item Value Reference Range Interpretation Comments POC-GLUCOSE METER 278 mg/dL 70-110 H TESTED AT [place] [address] ([facility]) (test code = [employer] [place] 1538) [address] PLATELET AGGREGATION: FUNCTION [id number] 13:18:00 Test Item Value Reference Range Interpretation Comments WEAK ADP 66 % 60-91 RESULT([facility]) (test code = 2135) PLATELET FUNCTION 60-100% indicates SCREEN INTERP ([facility]) normal platelet (test code = 2173) function [id number] Rigoberto Duenas MD ([facility]) (test code = (electronic signature) 5680) PLATELET COUNT AGG 204 K/CU MM 150-450 ([facility]) (test code = 2656) POCT-GLUCOSE [id number] 08:27:00 Test Item Value Reference Range Interpretation Comments POC-GLUCOSE METER 189 mg/dL 70-110 H TESTED AT [place] [address] ([facility]) (test code = [employer] [place] 1538) [address] CALCIUM, [id number] 06:12:00 Test Item Value Reference Range Interpretation Comments CALCIUM IONIZED (BEAKER) (test 1.07 mmol/L 1.12-1.27 L code = 698) PH, BLOOD (BEAKER) (test code = 7.36 1810) [id number] 05:43:00 Test Item Value Reference Range Interpretation Comments PHOSPHORUS (BEAKER) (test code = 3.6 mg/dL 2.3-4.7 604) [id number] 05:43:00 Test Item Value Reference Range Interpretation Comments MAGNESIUM (BEAKER) (test code = 2.1 mg/dL 1.6-2.6 627) BASIC METABOLIC [id number] 05:43:00 Test Item Value Reference Range Interpretation [...] PATIEN TS. CBC W/PLT COUNT & AUTO [id number] 05:05:00 Test Item Value Reference Range Interpretation [...] PERCENT (BEAKER) (test code = 2801) POCT-GLUCOSE [id number] 21:32:00 Test Item Value Reference Range Interpretation Comments POC-GLUCOSE METER 176 mg/dL 70-110 H TESTED AT [facility] 6720 (BEAKER) (test code = [place] 1538) [address] POCT-GLUCOSE [id number] 20:27:00 Test Item Value Reference Range Interpretation Comments POC-GLUCOSE METER 161 mg/dL 70-110 H TESTED AT [facility] 6720 ([facility]) (test code = JULIANO Osborne [facility] 1538) [address] POCT-GLUCOSE [id number] 18:23:00 Test Item Value Reference Range Interpretation Comments POC-GLUCOSE METER 185 mg/dL 70-110 H TESTED AT [place] [address] ([facility]) (test code = [facility] 1538) [address] POCT-GLUCOSE [id number] 13:26:00 Test Item Value Reference Range Interpretation Comments POC-GLUCOSE METER 282 mg/dL 70-110 H TESTED AT [place] [address] ([facility]) (test code = [facility] 1538) [address] URINE [id number] 10:12:00 Test Item Value Reference Range Interpretation Comments CULTURE (BEAKER) (test >100,000 col/mL skin code = 1095) todd POCT-GLUCOSE [id number] 09:01:00 Test Item Value Reference Range Interpretation Comments POC-GLUCOSE METER 268 mg/dL 70-110 H TESTED AT [place] [address] ([facility]) (test code = [facility] 1538) [address] CALCIUM, [id number] 05:39:00 Test Item Value Reference Range Interpretation Comments CALCIUM IONIZED (BEAKER) (test 0.84 mmol/L 1.12-1.27 L code = 698) PH, BLOOD (BEAKER) (test code = 7.35 9590) BASIC METABOLIC [id number] 05:07:00 Test Item Value Reference Range Interpretation [...] S NOT APPLICABLE FOR DIALYSIS PATIEN TS. [id number] 05:06:00 Test Item Value Reference Range Interpretation Comments PHOSPHORUS (BEAKER) (test code = 3.2 mg/dL 2.3-4.7 604) [id number] 05:06:00 Test Item Value Reference Range Interpretation Comments MAGNESIUM (BEAKER) (test code = 2.3 mg/dL 1.6-2.6 627) CBC W/PLT COUNT & AUTO [id number] 04:42:00 Test Item Value Reference Range Interpretation [...] = 2801) RHEUMATOID FACTOR AB, REFLEX TO [id number] 01:52:00 Test Item Value Reference Range Interpretation Comments RHEUMATOID FACTOR (ROBERT) (test Negative code = 573) POCT-GLUCOSE [id number] 21:57:00 Test Item Value Reference Range Interpretation Comments POC-GLUCOSE METER 105 mg/dL 70-110 TESTED AT [facility] 67 ([facility] (test code = JULIANO Osborne [place] [address]) [address] POCT-GLUCOSE [id number] 18:11:00 Test Item Value Reference Range Interpretation Comments POC-GLUCOSE METER 312 mg/dL 70-110 H Notified Dylon Austin MD/TESTED (ROBERT) (test code = AT [facility] [address] [place] [address]) [facility] 7[address] 0 PET, CARDIAC PERFUSION MULTIPLE STUDIES, REST AND [id number] 16:28:00 Reason for exam:->pvcs, known cadFINAL REPORT PROCEDURE: Rest/Stress MYOCARDIAL PERFUSION PET with regadenoson\\XA9\\ CPT CODE: 52905 INDICATION: Defined extent and severity of known [...] is 23%. LVEF at stress is 36%. [employer] CT images revealed a right pleural effusion [...] Whaley Verified Date/Time: 05/15/2017 16:28:12 Reading Location: [address] [facility] ReadingRoom RAD, CHEST, 1 VIEW, NON [id number] 15:56:00Reason for exam:->SOBShould this be performed at the bedside?->YesFINAL REPORT Comparison: 05/14/2017 TECHNIQUE: Single view of the chest FINDINGS: There is a small right pleural effusion with nonspecific airspace disease. This is unchanged. Left lung is grossly clear. Cardiac silhouette is enlarged. IMPRESSION: 1. No acute cardiopulmonary disease. Signed: Sitxo Monk MDReport Verified Date/Time: 05/15/2017 15:56:39 Reading Location: [facility] Rad iology Reading Room POCT-GLUCOSE [id number] 12:54:00 Test Item Value Reference Range Interpretation Comments POC-GLUCOSE METER 308 mg/dL 70-110 H Notified Dylon Austin MD/NATHAN (ROBERT) (test code = AT [facility] 67[address] [facility] 1538) [facility] 7[address] 0 U/S, RENAL WITH [id number] 11:04:00Reason for exam:->tracy, htnShould this be performed [...] in the resistive indices throughout. Signed: Anahi [facility] Verified Date/Time: 05/15/2017 11:04:01 Reading Location: [address] Ultrasound Reading Room ANA TITER AND [id number] 10:57:00 Test Item Value Reference Range Interpretation Comments ROGER TITER (BEAKER) (test code = :160 1541) ROGER PATTERN (BEAKER) (test code = [place] 1781) ANTI-NUCLEAR ANTIBODY (ROGER)2017-05-15 10:56:00 Test Item Value Reference Range Interpretation Comments ANTI-NUCLEAR ANTIBODY (ROGER) (BEAKER) Positive Negative A (test code = 418) CALCIUM, [id number] 06:00:00 Test Item Value Reference Range Interpretation Comments CALCIUM IONIZED (BEAKER) (test 1.07 mmol/L 1.12-1.27 L code = 698) PH, BLOOD (BEAKER) (test code = 7.28 1810) HEPATITIS PANEL, [id number] 05:01:00 Test Item Value Reference Range Interpretation Comments HEPATITIS A IGM ANTIBODY (BEAKER) Nonreactive Nonreactive (test code = 498) HEPATITIS B CORE IGM ANTIBODY Nonreactive Nonreactive (BEAKER) (test code = 645) HEPATITIS C ANTIBODY (BEAKER) Nonreactive Nonreactive (test code = 367) HEPATITIS B SURFACE ANTIGEN (2) Nonreactive Nonreactive (BEAKER) (test code = 2585) BASIC METABOLIC [id number] 04:48:00 Test Item Value Reference Range Interpretation [...] NOT APPLICABLE FOR DIALYSIS PATIEN TS. URIC [id number] 04:41:00 Test Item Value Reference Range Interpretation Comments URIC ACID (BEAKER) (test code = 10.3 mg/dL 2.6-7.2 H 773) [id number] 04:41:00 Test Item Value Reference Range Interpretation Comments MAGNESIUM (BEAKER) (test code = 2.0 mg/dL 1.6-2.6 627) [id number] 04:41:00 Test Item Value Reference Range Interpretation Comments PHOSPHORUS (BEAKER) (test code = 4.2 mg/dL 2.3-4.7 604) COMPLEMENT COMPONENT [id number] 04:38:00 Test Item Value Reference Range Interpretation Comments C4 COMPLEMENT (BEAKER) (test code = 28 mg/dL 15-57 394) COMPLEMENT COMPONENT [id number] 04:38:00 Test Item Value Reference Range Interpretation Comments C3 COMPLEMENT (BEAKER) (test code = 103 mg/dL 82-193 393) CBC W/PLT COUNT & AUTO [id number] 04:22:00 Test Item Value Reference Range Interpretation [...] EOSINOPHILS ABSOLUTE COUNT 0.21 K/ L 0.04-0.36 ([facility]) (test code = 416) BASOPHILS ABSOLUTE COUNT ([facility]) 0.06 K/ L 0.01-0.08 (test code = 417) IMMATURE GRANULOCYTES-RELATIVE 0 % 0-1 PERCENT ([facility]) (test code = 2801) POCT-GLUCOSE [id number] 21:46:00 Test Item Value Reference Range Interpretation Comments POC-GLUCOSE METER 173 mg/dL 70-110 H TESTED AT [place] [address] ([facility]) (test code = JULIANO Osborne WINTHROP [facility] [id number] POCT-GLUCOSE [id number] 21:46:00 Test Item Value Reference Range Interpretation Comments POC-GLUCOSE METER 154 mg/dL 70-110 H TESTED AT [place] [address] ([facility]) (test code = [facility] Dylon [facility] 1538) [id number] POCT-GLUCOSE [id number] 18:17:00 Test Item Value Reference Range Interpretation Comments POC-GLUCOSE METER 175 mg/dL 70-110 H TESTED AT [place] [address] ([facility]) (test code = [facility] 1538) [address] RAD, CHEST, 1 VIEW, NON [id number] 14:56:00Reason for exam:->SOBShould this be performed at the bedside?->YesFINAL REPORT INDICATION: SOB COMPARISON: May 13, 2017 TECHNIQUE: Chest radiograph, single view, portable technique. FINDINGS / IMPRESSION: Enlarged heart shadow, small rightpleural effusion, and pulmonary venous congestion, again demonstrated. No pneumothorax or consolidation. Osseous structures unremarkable. Signed: Thania Dwyer MDReport Verified Date/Time: 05/14/2017 14:56:58 Reading Location: [facility] Mammo Reading Room POCT-GLUCOSE [id number] 12:18:00 Test Item Value Reference Range Interpretation Comments POC-GLUCOSE METER 313 mg/dL 70-110 H TESTED AT [place] [address] ([facility]) (test code = JULIANO Osborne [facility] 1538) [address] HIV-1 ANTIGEN WITH HIV-1/2 [id number] 12:07:00 Test Item Value Reference Range Interpretation Comments HIV-1 ANTIGEN WITH HIV 1\\T\\2 Nonreactive Nonreactive ANTIBODY (2) (BEAKER) (test code = 2586) CALCIUM, [id number] 06:37:00 Test Item Value Reference Range Interpretation Comments CALCIUM IONIZED (BEAKER) (test 1.08 mmol/L 1.12-1.27 L code = 698) PH, BLOOD (BEAKER) (test code = 7.25 1810) BASIC METABOLIC [id number] 06:26:00 Test Item Value Reference Range Interpretation [...] pg/mL 0-100 H (test code = 700) [id number] 06:25:00 Test Item Value Reference Range Interpretation Comments PHOSPHORUS (BEAKER) (test code = 5.7 mg/dL 2.3-4.7 H 604) [id number] 06:25:00 Test Item Value Reference Range Interpretation Comments MAGNESIUM (BEAKER) (test code = 1.5 mg/dL 1.6-2.6 L 627) CBC W/PLT COUNT & AUTO [id number] 06:07:00 Test Item Value Reference Range Interpretation [...] PERCENT (BEAKER) (test code = 2801) POCT-GLUCOSE [id number] 22:38:00 Test Item Value Reference Range Interpretation Comments POC-GLUCOSE METER 262 mg/dL 70-110 H TESTED AT [facility] 6720 (BEAKER) (test code = J[place]IANO [place] 1538) [id number] PROTEIN, RANDOM [id number] 22:18:00 Test Item Value Reference Range Interpretation Comments PROTEIN, URINE (BEAKER) (test code 641 mg/dL 0-14 H = 1569) CREATININE, RANDOM [id number] 22:07:00 Test Item Value Reference Range Interpretation Comments CREATININE URINE (BEAKER) (test 124.9 mg/dL code = 375) Reference Range: No NormalsURINALYSIS W/ [id number] 22:03:00 Test Item Value Reference Range Interpretation [...] 1585) SOURCE(BEAKER) (test code = Urine, Voided 5158) [id number] 19:49:00 Test Item Value Reference Range Interpretation Comments SODIUM (BEAKER) (test 136 meq/L 136-145 code = 381) POTASSIUM (BEAKER) 5.1 meq/L 3.5-5.1 Specimen slightly (test code = 379) hemolyzed CHLORIDE (BEAKER) 104 meq/L 98-107 (test code = 382) CO2 (BEAKER) (test 25 meq/L 22-29 code = 355) Call if K > 5POCT-GLUCOSE [id number] 11:37:00 Test Item Value Reference Range Interpretation Comments POC-GLUCOSE METER 293 mg/dL 70-110 H TESTED AT [place] [address] ([facility]) (test code = JULIANO Osborne [facility] 1538) [address] RAD, CHEST, 1 VIEW, NON [id number] 10:22:00Reason for exam:->SOBShould this be performed at the bedside?->YesFINAL REPORT Chest one view Discussion: There is cardiomegaly and interstitial congestion. A small right-sided effusion is noted. No pneumothorax. IMPRESSIONS: Suspected CHF. Signed: Jeannette Nava Verified Date/Time: 05/13/2017 10:22:34 Reading Location: [facility] Radiology Reading Room POCT-GLUCOSE METER 2017-05-13 08:34:00 Test Item Value Reference Range Interpretation Comments POC-GLUCOSE METER 178 mg/dL 70-110 H TESTED AT [facility] 67 ([facility]) (test code = JULIANO Osborne [facility] 1538) [id number] POCT-GLUCOSE [id number] 06:53:00 Test Item Value Reference Range Interpretation Comments POC-GLUCOSE METER 167 mg/dL 70-110 H TESTED AT [facility] 6720 (BEAKER) (test code = JULIANO Osborne [facility] 1538) [address] [id number] 04:48:00 Test Item Value Reference Range Interpretation Comments BLOOD UREA NITROGEN (BEAKER) (test 36 mg/dL 7-21 H code = 354) [id number] 04:48:00 Test Item Value Reference Range Interpretation Comments SODIUM (BEAKER) (test code = 381) 139 meq/L 136-145 POTASSIUM (BEAKER) (test code = 5.2 meq/L 3.5-5.1 H 379) CHLORIDE (BEAKER) (test code = 382) 109 meq/L 98-107 H CO2 (BEAKER) (test code = 355) 23 meq/L 22-29 [id number] 04:48:00 Test Item Value Reference Range Interpretation [...] WBC 0-0 (BEAKER) (test code = 413) [id number] 23:29:00 Test Item Value Reference Range Interpretation Comments ACTIVATED CLOTTING TIME 136 sec TEST ED AT [place] [address] (BEAKER) (test code = JULIANO Osborne [place] 441) [id number] 20:13:00 Test Item Value Reference Range Interpretation Comments ACTIVATED CLOTTING TIME 175 sec TEST ED AT [place] [address] ([facility]) (test code = JULIANO Osborne [place] 441) [address] [id number] 18:36:00 Test Item Value Reference Range Interpretation Comments ACTIVATED CLOTTING TIME 202 sec TEST ED AT [place] [address] (BEAKER) (test code = JULIANO Osborne [facility] 441) [address] [id number] 18:03:00 Test Item Value Reference Range Interpretation Comments ACTIVATED CLOTTING TIME 208 sec TEST ED AT [place] [address] ([facility]) (test code = JULIANO Osborne [facility] 441) [address] BASIC METABOLIC [id number] 11:57:00 Test Item Value Reference Range Interpretation [...] NOT APPLICABLE FOR DIALYSIS PATIEN TS. PROTHROMBIN [id number] 11:15:00 Test Item Value Reference Range Interpretation [...] if on CoumadinCBC W/PLT COUNT & AUTO [id number] 11:01:00 Test Item Value Reference Range Interpretation [...] PERCENT (BEAKER) (test code = 2801) POCT-GLUCOSE [id number] 12:35:00 Test Item Value Reference Range Interpretation Comments POC-GLUCOSE METER 249 mg/dL 70-110 H TESTED AT [facility] 67 ([facility]) [facility] 1538) [address] POCT-GLUCOSE [id number] 09:10:00 Test Item Value Reference Range Interpretation Comments POC-GLUCOSE METER 155 mg/dL 70-110 H TESTED AT [place] [address] ([facility]) (test code = [facility] Dylon [facility] 1538) [address] BASIC METABOLIC [id number] 05:39:00 Test Item Value Reference Range Interpretation [...] S NOT APPLICABLE FOR DIALYSIS PATIEN TS. [id number] 05:27:00 Test Item Value Reference Range Interpretation Comments PHOSPHORUS ([facility]) (test code = 5.0 mg/dL 2.3-4.7 H 604) [id number] 05:27:00 Test Item Value Reference Range Interpretation Comments MAGNESIUM ([facility]) (test code = 1.6 mg/dL 1.6-2.6 627) POCT-GLUCOSE [id number] 05:25:00 Test Item Value Reference Range Interpretation Comments POC-GLUCOSE METER 144 mg/dL 70-110 H TESTED AT [place] [address] ([facility]) (test code = [facility] 1538) [address] PROTHROMBIN [id number] 04:58:00 Test Item Value Reference Range Interpretation Comments PROTIME ([facility]) (test code = 14.2 seconds 11.7-14.7 759) INR ([facility]) (test code = 370) 1.1 <=5.9 RECOMMENDED COUMADIN/WARFARIN INR THERAPY RANGESSTANDARD DOSE: 2.0 - 3.0 Includes: PROPHYLAXIS forvenous thrombosis, systemic embolization; TREATMENT for venous thrombosis and/or pulmonary embolus.HIGH RISK: Target INR is 2.5-3.5 for patients with mechanical heart valves.POCT-GLUCOSE [id number] 23:55:00 Test Item Value Reference Range Interpretation Comments POC-GLUCOSE METER 86 mg/dL 70-110 TESTED AT [place] [address] ([facility]) (test code = [facility] [address] 1538) B-TYPE NATRIURETIC FACTOR (BNP)[id number] 18:13:00 Test Item Value Reference Range Interpretation Comments B-TYPE NATRIURETIC PEPTIDE 1203 pg/mL 0-100 H ([facility]) (test code = 700) POCT-GLUCOSE [id number] 17:36:00 Test Item Value Reference Range Interpretation Comments POC-GLUCOSE METER 259 mg/dL 70-110 H TESTED AT [place] [address] ([facility]) (test code = [facility] 1538) [address] HEMOGLOBIN [id number] 14:24:00 Test Item Value Reference Range Interpretation Comments HEMOGLOBIN A1C ([facility]) (test code = 10.5 % 4.3-6.1 H 368) POCT-GLUCOSE [id number] 12:34:00 Test Item Value Reference Range Interpretation Comments POC-GLUCOSE METER 207 mg/dL 70-110 H TESTED AT [facility] 6720 (BEAKER) (test code = JULIANO [place] 1538) [address] [id number] 07:53:00 Test Item Value Reference Range Interpretation Comments PHOSPHORUS (BEAKER) (test code = 3.9 mg/dL 2.3-4.7 604) [id number] 07:53:00 Test Item Value Reference Range Interpretation Comments MAGNESIUM (BEAKER) (test code = 1.6 mg/dL 1.6-2.6 627) BASIC METABOLIC [id number] 07:53:00 Test Item Value Reference Range Interpretation [...] NOT APPLICABLE FOR DIALYSIS PATIEN TS. TROPONIN [id number] 07:29:00 Test Item Value Reference Range Interpretation [...] acidosis, acute neurological disease, and persistent tachyarrhythmia.PROTHROMBIN [id number] 07:01:00 Test Item Value Reference Range Interpretation Comments PROTIME (ROBERT) (test code = 13.8 seconds 11.7-14.7 759) INR ([facility]) (test code = 370) 1.1 <=5.9 RECOMMENDED COUMADIN/WARFARIN INR THERAPY RANGESSTANDARD DOSE: 2.0 - 3.0 Includes: PROPHYLAXIS forvenous thrombosis, systemic embolization; TREATMENT for venous thrombosis and/or pulmonary embolus.HIGH RISK: Target INR is 2.5-3.5 for patients with mechanical heart valves.POCT-GLUCOSE [id number] 06:28:00 Test Item Value Reference Range Interpretation Comments POC-GLUCOSE METER 198 mg/dL 70-110 H TESTED AT [place] [address] ([facility]) (test code = JULIANO REYEZ 1538) [address] CREATINE KINASE (CK), TOTAL AND [id number] 00:49:00 Test Item Value Reference Range Interpretation Comments CREATINE KINASE TOTAL ([facility]) 69 U/L 29-200 (test code = 380) CREATINE KINASE-MB ([facility]) (test 4.3 ng/mL 0.0-6.6 code = 750) CREATINE KINASE-MB INDEX ([facility]) 6.2 % (test code = 395) CK-MB Reference Range:<6.7 Normal6.7-10.0 Borderline>10.0 AbnormalTROPONIN [id number] 00:49:00 Test Item Value Reference Range Interpretation Comments TROPONIN I ([facility]) (test code = 0.05 ng/mL [...] acidosis, acute neurological disease, and persistent tachyarrhythmia.POCT-GLUCOSE [id number] 20:44:00 Test Item Value Reference Range Interpretation Comments POC-GLUCOSE METER 269 mg/dL 70-110 H TESTED AT [place] [address] (BEAKER) (test code = JULIANO Osborne [facility] 1538) [id number]
--- NOTE | 2020-07-10 15:53 | RAD REPORT ---
EXAM DESCRIPTION: RAD - Chest Single View - 07/10/2020 3:43 pm CLINICAL HISTORY: COUGH, loss of appetite, history of CHF, COPD and dialysis COMPARISON: Portable June 27, 2020 TECHNIQUE: AP portable chest image was obtained 07/10/2020 3:43 pm . FINDINGS: Right base pleural effusion is similar to the June 27 study. Trace amount of pleural flui d may be present on the left. No acute lung parenchymal process seen. New left-side dialysis catheter is in place since comparison. Sternotomy wires noted. Heart size is upper normal to slightly enlarge d. Size is stable. No acute vascular engorgement. Significant failure or volume overload are not susp ected. No pneumothorax. No acute bony abnormality seen. No acute aortic findings suspected. IMPRESSION: Small to moderate-sized right pleural effusion similar to comparison. No acute lung parenchymal process. No acute failure or volume overload suspected.
[2020-07-10 16:00] LABS: Absolute Lymphocytes (CBC) 1.5 K/uL (0.7-4.9); Basophils % 1.2 % (0-1.3); Hematocrit 37.1 % (36.0-45.0); RBC Red Blood Cell Count 4.33 M/uL (3.86-4.86)
[2020-07-10 16:07] LABS: Protime INR 1.32
[2020-07-10] MEDS ORDERED: ONDANSETRON 4 MG/2 ML VIAL ONE (16:09)
[2020-07-10] MEDS ORDERED: FENTANYL CITR 100 MCG/2 ML ONE (16:09)
[2020-07-10] MEDS ORDERED: FAMOTIDINE 20 MG/2 ML VIAL IV ONE (16:09)
[2020-07-10 16:20] LABS: Urine Blood 1+ (Negative); Urine Glucose Negative (Negative); Urine Protein 3+ (Negative); Urine Specific Gravity 1.025 (1.005-1.030)
[2020-07-10 16:34] LABS: Albumin 2.6 g/dL (3.4-5.0); Bilirubin Direct 0.2 mg/dL (0-0.2); Bilirubin Total 0.5 mg/dL (0.2-1.0); Magnesium 1.8 mg/dL (1.8-2.4); Potassium 4.3 mmol/L (3.5-5.1); Troponin (Emerg Dept Use Only) 0.04 ng/mL (0.0-0.045)
--- NOTE | 2020-07-10 17:12 | ER ---
Nurse's Notes [facility] Name: Christy Priest Age: 65 yrs Sex: Female : 1955 Arrival Date: 07/10/2020 Time: 14:19 Bed 6 Private MD: Diagnosis: Vomiting;Diarrhea, unspecified;Weakness;End stage renal disease-ON HD;Pleural effusion in conditions classified elsewhere-LEFT;Urinary tract infection, site not specified Presentation: 07/10 14:20 Chief complaint: EMS states: N/V/D and loss of appetite x 1 week. Coronavirus screen: jl7 Client denies travel out of the [place] in the last 14 days. Ebola Screen: No symptoms or risks identified at this time. Initial Sepsis Screen: Does the patient meet any 2 criteria? No. Patient's initial sepsis screen is negative. Does the patient have a suspected source of infection? No. Patient's initial sepsis screen is negative. Risk Assessment: Do you want to hurt yourself or someone else? Patient reports no desire to harm self or others. Onset of symptoms is unknown. Care prior to arrival: Glucose check: 116. 14:20 Method Of Arrival: EMS: [facility] jl7 14:20 Acuity: DENNY 3 jl7 Triage Assessment: 14:29 General: Appears in no apparent distress. uncomfortable, Behavior is calm, cooperative, jl7 appropriate for age. Pain: Complains of pain in neck, low back Pain currently is 8 out of 10 on a pain scale. Neuro: Level of Consciousness is awake, alert, obeys commands, Oriented to person, place, time, situation. Cardiovascular: Patient's skin is warm and dry. Respiratory: Airway is patent Respiratory effort is even, unlabored, Respiratory pattern is regular, symmetrical. GI: Reports diarrhea, nausea, vomiting. Derm: Skin is dry, Skin is pale, Skin temperature is warm. Historical: - Allergies: 14:29 Augmentin; jl7 14:29 basil; jl7 14:29 Clindamycin; jl7 14:29 Morphine; jl7 14:29 Nitroglycerin; jl7 14:29 Tramadol HCl; jl7 14:29 Trazodone; jl7 14:29 Vancomycin; jl7 14:29 Vicodin; jl7 - Home Meds: 14:29 gabapentin Oral [Active]; Lasix Oral [Active]; Plavix Oral [Active]; jl7 - PMHx: 14:29 ADD/ADHD; CHF; COPD; Diabetes - IDDM; Dialysis; ESRD; High Cholesterol; Hypertension; jl7 triple bypass; uterine cancer; - Immunization history:: Adult Immunizations up to date. - Social history:: Smoking status: Patient/guardian denies using tobacco. Screenin:30 Abuse screen: Denies threats or abuse. Denies injuries from another. Nutritional jl7 screening: No deficits noted. Tuberculosis screening: No symptoms or risk factors identified. Fall Risk No fall in past 12 months (0 pts). Secondary diagnosis (15 points) impaired mobility, IV access (20 points). Ambulatory Aid- Crutches/Cane/Walker (15 pts). Gait- Weak (10 pts.). Mental Status- Overestimates/Forgets Limitations (15 pts.). Total Merlos Fall Scale indicates High Risk Score (45 or more points). Fall prevention measures have been instituted. Side Rails Up X 2 Placed Close to Nursing Station Frequent Obs/Assessments Occuring As available patient and family educated on Fall Prevention Program and Strategies. Assessment: 14:30 General: See triage assessment. jl7 15:30 Reassessment: Patient appears in no apparent distress at this time. No changes from jl7 previously documented assessment. Patient and/or family updated on plan of care and expected duration. Pain level reassessed. Patient is alert, oriented x 3, equal unlabored respirations, skin warm/dry/pink. 16:28 Reassessment: Patient appears in no apparent distress at this time. No changes from jl7 previously documented assessment. Patient and/or family updated on plan of care and expected duration. Pain level reassessed. Patient is alert, oriented x 3, equal unlabored respirations, skin warm/dry/pink. 17:30 Reassessment: Patient appears in no apparent distress at this time. No changes from jl7 previously documented assessment. Patient and/or family updated on plan of care and expected duration. Pain level reassessed. Patient is alert, oriented x 3, equal unlabored respirations, skin warm/dry/pink. 18:30 Reassessment: Patient appears in no apparent distress at this time. No changes from jl7 previously documented assessment. Patient and/or family updated on plan of care and expected duration. Pain level reassessed. Patient is alert, oriented x 3, equal unlabored respirations, skin warm/dry/pink. Vital Signs: 14:20 BP 163 / 81; Pulse 65; Resp 15 S; Temp 97.1(TE); Pulse Ox 100% on R/A; Weight 71.21 kg jl7 (R); Height 5 ft. 7 in. (170.18 cm) (R); Pain 8/10; 15:30 BP 162 / 83; Pulse 65; Resp 14; Pulse Ox 98% ; jl7 16:28 BP 150 / 99; Pulse 66; Resp 17; Pulse Ox 100% ; jl7 17:30 BP 165 / 90; Pulse 67; Resp 14; Pulse Ox 96% ; jl7 18:36 BP 172 / 93; Pulse 71; Resp 15; Pulse Ox 99% ; jl7 14:20 Body Mass Index 24.59 (71.21 kg, 170.18 cm) jl7 ED Course: 14:19 Patient arrived in ED. iw 14:20 Jl Wadsworth RN is Primary Nurse. jl7 14:22 Alessio Parry MD is Attending Physician. [facility] 14:23 Triage completed. jl7 14:30 Patient has correct armband on for positive identification. Placed in gown. Bed in low jl7 position. Call light in reach. Side rails up X2. equipment monitor phototypesetting on. Pulse ox on. NIBP on. Warm blanket given. 14:32 Arm band placed on right wrist. jl7 15:43 XRAY Chest (1 view) In Process Unspecified. EDMS 16:00 Initial lab(s) drawn, by mi, sent to lab. Urine collected: straight cath specimen, [facility] cloudy, tea colored, COVID swab sent to lab. Straight cath inserted, using sterile technique, 20 Fr. Specimen obtained. Returned cloudy urine. Patient tolerated poorly. Inserted saline lock: 20 gauge in right forearm, using aseptic technique. Blood collected. 17:08 Fer Muñiz is Hospitalizing Provider. [facility] 19:07 No provider procedures requiring assistance completed. Patient admitted, IV remains in jl7 place. intact, No redness/swelling at site. Administered Medications: 16:00 Drug: Pepcid (famotidine) 20 mg Route: IVP; Site: right forearm; jl7 18:33 Follow up: Response: No adverse reaction jl7 16:02 Drug: Zofran (Ondansetron) 4 mg Route: IVP; Site: right forearm; jl7 16:20 Follow up: Response: No adverse reaction jl7 16:04 Drug: fentaNYL (PF) 25 mcg Route: IVP; Site: right forearm; jl7 16:30 Follow up: Response: No adverse reaction; Pain is decreased jl7 18:15 Drug: fentaNYL (PF) 25 mcg Route: IVP; Site: right forearm; jl7 18:45 Follow up: Response: No adverse reaction; Pain is decreased jl7 18:20 Drug: Meropenem 1 grams Route: IV; Rate: per protocol; Site: right forearm; jl7 18:50 Follow up: Response: No adverse reaction; IV Status: Completed infusion jl7 Outcome: 17:11 Decision to Hospitalize by Provider. carlos 19:07 Admitted to ER Hold. [facility]. jl7 19:07 Condition: stable 19:07 Discharge instructions given to patient, Instructed on the need for admit, Demonstrated understanding of instructions. 22:03 Patient left the ED. mg2 Signatures: Dispatcher [employer] Alessio Milian MD MD cha Williams, Irene, GUILHERME VANEGAS iw Jl Wadsworth RN RN jl7 Brian Carrillo RN RN mg2 Corrections: (The following items were deleted from the chart) 14:32 14:20 BP 163 / 81; Pulse 157bpm; Resp 15bpm; Spontaneous; Pulse Ox 100% RA; Temp 97.1F jl7 Temporal; 71.21 kg Reported; Height 5 ft. 7 in. Reported; BMI: 24.5; Pain 8/10; jl7
--- NOTE | 2020-07-10 17:12 | EDPHYS ---
Physician Documentation [facility] Name: Christy Priest Age: 65 yrs Sex: Female : 1955 Arrival Date: 07/10/2020 Time: 14:19 Bed 6 Private MD: REILLY Physician Alessio Parry HPI: 07/10 15:31 This 65 yrs old Female presents to ER via EMS with complaints of carlos Nausea/Vomiting/Diarrhea. 15:31 The patient presents to the emergency department with nausea, vomiting, diarrhea, that carlos is continuous. Onset: The symptoms/episode began/occurred 3 day(s) ago. Possible causes: unknown. The symptoms are aggravated by nothing. Associated signs and symptoms: Pertinent positives: diarrhea, nausea, vomiting. Severity of symptoms: At their worst the symptoms were mild moderate in the emergency department the symptoms are unchanged. The patient has not experienced similar symptoms in the past. Historical: - Allergies: 14:29 Augmentin; jl7 14:29 basil; jl7 14:29 Clindamycin; jl7 14:29 Morphine; jl7 14:29 Nitroglycerin; jl7 14:29 Tramadol HCl; jl7 14:29 Trazodone; jl7 14:29 Vancomycin; jl7 14:29 Vicodin; jl7 - Home Meds: 14:29 gabapentin Oral [Active]; Lasix Oral [Active]; Plavix Oral [Active]; jl7 - PMHx: 14:29 ADD/ADHD; CHF; COPD; Diabetes - IDDM; Dialysis; ESRD; High Cholesterol; Hypertension; jl7 triple bypass; uterine cancer; - Immunization history:: Adult Immunizations up to date. - Social history:: Smoking status: Patient/guardian denies using tobacco. ROS: 15:33 Constitutional: Negative for fever, chills, and weight loss, Eyes: Negative for injury, carlos pain, redness, and discharge, ENT: Negative for injury, pain, and discharge, Neck: Negative for injury, pain, and swelling, Cardiovascular: Negative for chest pain, palpitations, and edema, Respiratory: Negative for shortness of breath, cough, wheezing, and pleuritic chest pain, Abdomen/GI: Negative for abdominal pain, nausea, vomiting, diarrhea, and constipation, Back: Negative for injury and pain, : Negative for injury, bleeding, discharge, and swelling, Skin: Negative for injury, rash, and discoloration, Neuro: Negative for headache, weakness, numbness, tingling, and seizure, Psych: Negative for depression, anxiety, suicide ideation, homicidal ideation, and hallucinations, Allergy/Immunology: Negative for hives, rash, and allergies, Endocrine: Negative for neck swelling, polydipsia, polyuria, polyphagia, and marked weight changes, Hematologic/Lymphatic: Negative for swollen nodes, abnormal bleeding, and unusual bruising. 15:33 MS/extremity: Positive for decreased range of motion, pain, swelling, tenderness, of the lateral aspect of left calf, left lateral ankle, lateral aspect of left foot, left calf, left Achilles, left heel, medial aspect of left calf, left medial ankle, medial aspect of left foot, left spangler, anterior aspect of left ankle and dorsum of left foot. Exam: 15:40 Constitutional: This is a well developed, well nourished patient who is awake, alert, carlos and in no acute distress. Head/Face: Normocephalic, atraumatic. Eyes: Pupils equal round and reactive to light, extra-ocular motions intact. Lids and lashes normal. Conjunctiva and sclera are non-icteric and not injected. Cornea within normal limits. Periorbital areas with no swelling, redness, or edema. ENT: Nares patent. No nasal discharge, no septal abnormalities noted. Tympanic membranes are normal and external auditory canals are clear. Oropharynx with no redness, swelling, or masses, exudates, or evidence of obstruction, uvula midline. Mucous membranes moist. Neck: Trachea midline, no thyromegaly or masses palpated, and no cervical lymphadenopathy. Supple, full range of motion without nuchal rigidity, or vertebral point tenderness. No Meningismus. Chest/axilla: Normal chest wall appearance and motion. Nontender with no deformity. No lesions are appreciated. Cardiovascular: Regular rate and rhythm with a normal S1 and S2. No gallops, murmurs, or rubs. Normal PMI, no JVD. No pulse deficits. Respiratory: Lungs have equal breath sounds bilaterally, clear to auscultation and percussion. No rales, rhonchi or wheezes noted. No increased work of breathing, no retractions or nasal flaring. Back: No spinal tenderness. No costovertebral tenderness. Full range of motion. Female : Normal external genitalia. Skin: Warm, dry with normal turgor. Normal color with no rashes, no lesions, and no evidence of cellulitis. Neuro: Awake and alert, GCS 15, oriented to person, place, time, and situation. Cranial nerves II-XII grossly intact. Motor strength 5/5 in all extremities. Sensory grossly intact. Cerebellar exam normal. Normal gait. Psych: Awake, alert, with orientation to person, place and time. Behavior, mood, and affect are within normal limits. 15:40 Abdomen/GI: Inspection: abdomen appears normal, Bowel sounds: normal, Palpation: abdomen is soft and non-tender, Liver: no appreciated palpable abnormalities, Hernia: not appreciated. 15:40 Musculoskeletal/extremity: ROM: full active range of motion, full passive range of motion, Circulation is intact in all extremities. decreased sensation, Compartment Syndrome exam of affected extremity: is normal. Weight bearing: able to fully bear weight, DVT Exam: negative Homans' sign noted on exam, no appreciated bluish discoloration, no increased warmth, pain, swelling, tenderness, erythema. 16:26 ECG was reviewed by the Attending Physician. [facility] Vital Signs: 14:20 BP 163 / 81; Pulse 65; Resp 15 S; Temp 97.1(TE); Pulse Ox 100% on R/A; Weight 71.21 kg jl7 (R); Height 5 ft. 7 in. (170.18 cm) (R); Pain 8/10; 15:30 BP 162 / 83; Pulse 65; Resp 14; Pulse Ox 98% ; jl7 16:28 BP 150 / 99; Pulse 66; Resp 17; Pulse Ox 100% ; jl7 17:30 BP 165 / 90; Pulse 67; Resp 14; Pulse Ox 96% ; jl7 18:36 BP 172 / 93; Pulse 71; Resp 15; Pulse Ox 99% ; jl7 14:20 Body Mass Index 24.59 (71.21 kg, 170.18 cm) 7 MDM: 14:23 Patient medically screened. [facility] 15:41 Differential diagnosis: Nonspecific abd pain, gastritis, viral gastroenteritis, carlos gastroenteritis. Differential Diagnosis sepsis. Data reviewed: vital signs, nurses notes, EMS record, lab test result(s), EKG, radiologic studies, plain films. Data interpreted: Pulse oximetry: on room air is 100 %. Test interpretation: by ED physician or midlevel provider: ECG, plain radiologic studies. Counseling: I had a detailed discussion with the patient and/or guardian regarding: the historical points, exam findings, and any diagnostic results supporting the discharge/admit diagnosis, lab results, radiology results. 07/10 15:31 Order name: Basic Metabolic Panel [facility] 07/10 15:31 Order name: CBC with Diff [facility] 07/10 15:31 Order name: LFT's; Complete Time: 17:04 [facility] 07/10 15:31 Order name: Magnesium; Complete Time: 17:04 [facility] 07/10 15:31 Order name: NT PRO-BNP; Complete Time: 17:04 [facility] 07/10 15:31 Order name: PT-INR; Complete Time: 16:14 [facility] 07/10 15:31 Order name: Troponin (emerg Dept Use Only); Complete Time: 17:04 [facility] 07/10 15:31 Order name: Lipase; Complete Time: 17:04 [facility] 07/10 15:31 Order name: Basic Metabolic Panel; Complete Time: 17:04 [facility] 07/10 15:32 Order name: CBC with Automated Diff; Complete Time: 16:14 [facility] 07/10 16:20 Order name: Urine Dipstick-Ancillary; Complete Time: 16:24 [facility] 07/10 16:51 Order name: SARS-COV-2 RT PCR; Complete Time: 17:04 [facility] 07/10 17:10 Order name: Stool Culture 07/10 15:31 Order name: XRAY Chest (1 view); Complete Time: 16:14 [facility] 07/10 15:31 Order name: EKG; Complete Time: 15:32 [facility] 07/10 15:31 Order name: Cardiac monitoring; Complete Time: 16:16 [facility] 07/10 15:31 Order name: EKG - Nurse/Tech; Complete Time: 16:26 [facility] 07/10 15:31 Order name: IV Saline Lock; Complete Time: 16:16 [facility] 07/10 15:31 Order name: Labs collected and sent; Complete Time: 16:16 [facility] 07/10 15:31 Order name: O2 Per Protocol; Complete Time: 16:16 [facility] 07/10 15:31 Order name: O2 Sat Monitoring; Complete Time: 16:16 [facility] 07/10 15:31 Order name: Urine Dipstick-Ancillary (obtain specimen); Complete Time: 16:16 [facility] 07/10 18:31 Order name: CONS Physician Consult EDDE 07/10 21:10 Order name: Glucose, Ancillary Testing EDDE 07/10 15:31 Order name: Wound Care; Complete Time: 18:34 [facility] EC:26 Rate is 66 beats/min. Rhythm is regular. QRS [place] is Normal. [place] interval is normal. QRS carlos interval is normal. QT interval is normal. No Q waves. T waves are Inverted in leads II, III, aVF, V5, V6. No ST changes noted. Clinical impression: NSR w/ Non-specific ST/T Changes. Interpreted by me. Reviewed by me. Administered Medications: 16:00 Drug: Pepcid (famotidine) 20 mg Route: IVP; Site: right forearm; jl7 18:33 Follow up: Response: No adverse reaction jl7 16:02 Drug: Zofran (Ondansetron) 4 mg Route: IVP; Site: right forearm; jl7 16:20 Follow up: Response: No adverse reaction jl 16:04 Drug: fentaNYL (PF) 25 mcg Route: IVP; Site: right forearm; jl7 16:30 Follow up: Response: No adverse reaction; Pain is decreased jl7 18:15 Drug: fentaNYL (PF) 25 mcg Route: IVP; Site: right forearm; jl7 18:45 Follow up: Response: No adverse reaction; Pain is decreased jl7 18:20 Drug: Meropenem 1 grams Route: IV; Rate: per protocol; Site: right forearm; jl7 18:50 Follow up: Response: No adverse reaction; IV Status: Completed infusion jl7 Disposition: 07/10/20 17:11 Hospitalization ordered by Fer Muñiz for Observation. Preliminary diagnosis are Vomiting, Diarrhea, unspecified, Weakness, End stage renal disease - ON HD, Pleural effusion in conditions classified elsewhere - LEFT, Urinary tract infection, site not specified. - Bed requested for Telemetry/MedSurg (observation). - Status is Observation. mg2 - Condition is Fair. - Problem is new. - Symptoms have improved. Signatures: Dispatcher [employer] EDDE Svetlana Iniguez Martha, RN RN Alessio Parry MD MD cha Leal, Jahala, RN RN jl7 Brian Carrillo RN RN mg2 Corrections: (The following items were deleted from the chart) 15:59 15:32 CORONAVIRUS+MRROSE.EJZ ordered. EDMS EDMS 18:23 17:11 Hospitalization Ordered by Fer Muñiz for Observation. Preliminary diagnosis bd is Vomiting; Diarrhea, unspecified; Weakness; End stage renal disease - ON HD; Pleural effusion in conditions classified elsewhere - LEFT; Urinary tract infection, site not specified. Bed requested for Telemetry/MedSurg (observation). Status is Observation. Condition is Fair. Problem is new. Symptoms have improved. carlos 21:13 18:23 07/10/2020 17:11 Hospitalization Ordered by Fer Muñiz for Observation. mw Preliminary diagnosis is Vomiting; Diarrhea, unspecified; Weakness; End stage renal disease - ON HD; Pleural effusion in conditions classified elsewhere - LEFT; Urinary tract infection, site not specified. Bed requested for [facility] ER HOLD. Status is Observation. Condition is Fair. Problem is new. Symptoms have improved. bd 22:03 21:13 07/10/2020 17:11 Hospitalization Ordered by Fer Muñiz for Observation. mg2 Preliminary diagnosis is Vomiting; Diarrhea, unspecified; Weakness; End stage renal disease - ON HD; Pleural effusion in conditions classified elsewhere - LEFT; Urinary tract infection, site not specified. Bed requested for Telemetry/MedSurg (observation). Status is Observation. Condition is Fair. Problem is new. Symptoms have improved. mw
[2020-07-10] MEDS ORDERED: Meropenem 1 GM/100 ML BAG ONE (18:34)
--- NOTE | 2020-07-10 18:42 | P.HP ---
Certification for Inpatient Patient admitted to: Observation With expected LOS: <2 Midnights Practitioner: I am a practitioner with admitting privileges, knowledge of patient current condition, hospital course, and medical plan of care. Services: Services provided to patient in accordance with Admission requirements found in Title 42 Section 412.3 of the Code of Federal Regulations Patient History Date of Service: 07/10/20 Reason for admission: Nausea and vomiting and diarrhea History of Present Illness: 65-year-old woman with a history of diabetes mellitus type 2, end-stage renal disease on hemodialysis, chronic lymphedema, chronic pleural effusion, chronic diabetic foot ulcer, recurrent hospitalizations and multiple ED visits presented to the emergency department with a complaint of nausea and vomiting and diarrhea which has been present for about 1 week. Was in the emergency department 2 days ago with similar complain. Patient was given IV fluids, pain medications and antiemetics and then discharged from the ED. Her symptoms got worse, with frequent diarrhea, not able to hold any food or drink in without vomiting. Patient presented to the emergency department with again for further evaluation. Allergies morphine Allergy (Severe, Verified 04/26/20 23:39) Anaphylaxis vancomycin Allergy (Intermediate, Verified 04/26/20 23:39) Shortness of breath basil Allergy (Verified 04/26/20 23:39) Nausea/Vomiting tramadol Allergy (Verified 04/26/20 23:39) Nausea/Vomiting trazodone Allergy (Verified 04/26/20 23:39) Nausea/Vomiting nitroglycerin Adverse Reaction (Mild, Verified 04/26/20 23:39) Nausea/Vomiting Home Medications: Allopurinol 100 mg PO BID 06/13/20 Aspirin 81 mg PO DAILY 06/13/20 Atorvastatin Calcium [Lipitor] 40 mg PO BEDTIME 06/13/20 Buproprion S.r. [Wellbutrin Sr*] 150 mg PO BID 06/13/20 Clopidogrel Bisulfate [Plavix*] 75 mg PO DAILY 06/13/20 Collagenase [Santyl Ointment*] 1 appl TOP DAILY 06/13/20 Epoetin [Retacrit] 10,000 units IV DIRECTED 06/13/20 Fluticasone [Flovent Hfa 110*] 2 puff IN DAILY 06/13/20 Gabapentin [Neurontin*] 100 mg PO TID 06/13/20 Hydralazine [Apresoline*] 25 mg PO TID 06/13/20 Patrice [Patrice*] 1 pkt PO BID 06/13/20 Medihoney [Medihoney Woundcare Gel*] 1 appl TOP DAILY 06/13/20 carvediloL [Carvedilol] 6.25 mg PO BID 06/13/20 lisinopriL [Prinivil*] 5 mg PO DAILY 06/13/20 Allopurinol 100 mg PO BID 06/14/20 Cholestyramine (with Sugar) [Cholestyramine Packet] 1 packet PO DAILY PRN 06/14/20 Furosemide [Lasix*] 2 tab PO BID 06/14/20 Gabapentin [Neurontin*] 100 mg PO TID 06/14/20 Sertraline HCl 25 mg PO DAILY 06/14/20 Sevelamer Carbonate [Renvela*] 2 tab PO TID* 06/14/20 - Past Medical/Surgical History Diabetic: Yes -: COPD -: Hypertension -: CAD, CABG x4 vessels (August 2017) -: Diabetes mellitus type 2, insulin-dependent -: Chronic combined systolic/diastolic CHF -: Uterine cancer status post hysterectomy -: Chronic renal disease, stage IV -: TB as a child - Negative 2017 -: Hyperlipidemia -: Iron deficiency anemia -: WEST -: Likely obstructive sleep apnea -: Rectal surgery -: Hysterectomy -: Cholecystectomy -: Gastric surgery -: Appendectomy -: CABG x4 vessel -: RLE Femoral popliteal bypass -: Left great toe amputation Psychosocial/ Personal History: The patient is a . Her son lives with her. She has 3 children. - Family History Brother -: Heart disease, Hypertension, Cancer Notes: Father -: Heart disease, Lung disease, Cancer Notes: - Prostate surgery - Hemorrhage Mother -: GI disease Notes: Sister -: Heart disease Notes: - Respiratory failure - Social History Alcohol use: No CD- Drugs: No Caffeine use: Yes Review of Systems Other: Except as documented, all other systems reviewed and negative. Physical Examination - Physical Exam General: Alert, In no apparent distress, Oriented x3 HEENT: Atraumatic, PERRLA, Mucous membr. moist/pink, EOMI, Sclerae nonicteric Neck: Supple, JVD not distended Respiratory: Clear to auscultation bilaterally, Normal air movement Cardiovascular: Regular rate/rhythm, Normal S1 S2, Edema (2+ bilateral lower extremity pitting edema) Gastrointestinal: Normal bowel sounds, Soft and benign, Non-distended, No tenderness Musculoskeletal: Erythema (Bilateral lower extremities), Other (Bilateral venous stasis dermatitis.) Integumentary: Other (Chronic nonhealing on the lateral aspect of the left foot.) Neurological: Normal speech, Normal strength at 5/5 x4 extr, Cranial nerves 3-12 intact - Studies Laboratory Data (last 24 hrs) 07/10/20 15:45: PT 15.2 H, INR 1.32 07/10/20 15:45: WBC 5.90, Hgb 11.7 L, Hct 37.1, Plt Count 231 07/10/20 15:45: Sodium 130 L, Potassium 4.3, BUN 28 H, Creatinine 3.92 H, Glucose 90, Magnesium 1.8, Total Bilirubin 0.5, AST 12 L, ALT 8 L, Alkaline Phosphatase 116, Lipase 84 Assessment and Plan - Problems (Diagnosis) (1) Intractable nausea and vomiting Current Visit: Yes Status: Acute (2) Hypertension Current Visit: No Status: Chronic Qualifiers: Hypertension type: essential hypertension Qualified Code(s): I10 - Essential (primary) hypertension (3) Lymphedema Current Visit: No Status: Chronic (4) Pleural effusion Onset Date: 04/28/15 Current Visit: No Status: Resolved (5) Ulcer of toe of left foot Onset Date: 01/07/14 Current Visit: No Status: Resolved (6) Chronic venous hypertension with ulcer and inflammation involving right side Current Visit: No Status: Ruled-out (7) Chronic diastolic heart failure Current Visit: No Status: Acute (8) CAD (coronary artery disease) Onset Date: 10/03/17 Current Visit: No Status: Chronic Qualifiers: (9) COPD (chronic obstructive pulmonary disease) Onset Date: 02/04/17 Current Visit: No Status: Chronic Qualifiers: COPD type: chronic bronchitis - Plan Place patient under observation. Supportive measures with antiemetics. Check stool for C. diff and lactoferrin. Start IV Flagyl. Consult to nephrology-Dr. Fernando for hemodialysis. Patient stated she was told she was not needing dialysis during the last section. Dialysis was not done due to her intractable nausea and vomiting and diarrhea. Insulin sliding scale for glucose monitor. Resume patient's home regimen for diabetes, hypertension. Wound care consult for wound dressing. Bronchodilators for COPD Continue CAD medications. - Advance Directives Does patient have a Living Will: Yes Does patient have a Durable POA for Healthcare: Yes
[2020-07-10] MEDS ORDERED: ACETAMINOPHEN 500 MG TAB PO PRN (18:47)
[2020-07-10 19:03] VITALS: BMI 24.5
[2020-07-10] MEDS: ALBUTEROL 2.5 MG/3 ML NEB SOL NEB SCH (19:50)
[2020-07-10] MEDS: IPRATROPIUM BROM 0.5MG/2.5ML NEB SCH (19:50)
[2020-07-10] MEDS ORDERED: ALBUTEROL 2.5 MG/3 ML NEB SOL ONE (20:05)
[2020-07-10] MEDS ORDERED: IPRATROPIUM BROM 0.5MG/2.5ML ONE (20:05)
[2020-07-10] MEDS: INSULIN -REGULAR HUMAN 50 UNIT/0.5 ML ML SQ SCH (21:00)
[2020-07-10] MEDS: HYDROCODONE/APAP 7.5/325 MG TAB PO PRN (21:10)
[2020-07-10] MEDS ORDERED: HYDROCODONE/APAP 7.5/325 MG TAB ONE (21:19)
[2020-07-11] MEDS ORDERED: DIPHENHYDRAMINE 50 MG/ML VIAL IV ONE (00:07)
[2020-07-11] MEDS: METRONIDAZOLE 500mg IVPB 500 MG/100 ML BAG IV SCH ×3 (00:27→18:16)
[2020-07-11] MEDS: HEPARIN 5000 UNIT/ML 1 ML VIAL SQ SCH ×3 (00:27→18:15)
[2020-07-11] MEDS ORDERED: DIPHENHYDRAMINE 50 MG/ML VIAL ONE (00:35)
[2020-07-11] MEDS: IPRATROPIUM BROM 0.5MG/2.5ML NEB SCH ×4 (02:20→19:40)
[2020-07-11] MEDS: ALBUTEROL 2.5 MG/3 ML NEB SOL NEB SCH ×4 (02:20→19:40)
[2020-07-11 04:01] LABS: Urine Appearance TURBID (Clear); Urine Bilirubin NEGATIVE (Negataive); Urine Blood 2+ (Negative); Urine Color YELLOW (Yellow); Urine Glucose NEGATIVE (Negative); Urine Protein 2+ (Negative); Urine Urobilinogen 0.2 mg/dL (0.2-1.0); Urine pH 5.5 (5.0-7.0)
[2020-07-11 04:03] LABS: Absolute Lymphocytes (CBC) 1.8 K/uL (0.7-4.9); Basophils % 0.8 % (0-1.3); Hematocrit 32.7 % (36.0-45.0); Lymphocytes % 33.6 % (15.3-44.8); RBC Red Blood Cell Count 3.87 M/uL (3.86-4.86)
[2020-07-11 04:24] LABS: Urine Microscopic Reflex ORDER UMIC
[2020-07-11 04:30] LABS: Magnesium 1.7 mg/dL (1.8-2.4); Phosphorus 4.9 mg/dL (2.5-4.9); Potassium 3.8 mmol/L (3.5-5.1)
[2020-07-11] MEDS: DIPHENHYDRAMINE 25 MG TAB/CAP PO PRN ×3 (04:40→20:21)
[2020-07-11 04:53] LABS: Thyroid Stimulating Hormone 6.18 uIU/mL (0.360-3.740)
[2020-07-11 05:04] LABS: Urine Bacteria 20-50 /HPF (<20); Urine RBC <5 /HPF (NONE SEEN); Urine Urothelial Cells <5 /HPF (NONE SEEN)
[2020-07-11] MEDS: INSULIN -REGULAR HUMAN 50 UNIT/0.5 ML ML SQ SCH ×4 (07:30→20:16)
[2020-07-11] MEDS ORDERED: Levofloxacin500mg IV 500 MG/100 ML BAG IV SCH (07:30)
[2020-07-11] MEDS ORDERED: CHOLESTYRAMINE/ASP 4 GM/PKT PO PRN (08:46)
[2020-07-11] MEDS: HYDRALAZINE HCL 25 MG TABLET PO SCH ×3 (09:00→20:15)
[2020-07-11] MEDS: carvediloL 6.25 MG TAB PO SCH ×2 (09:00→20:15)
[2020-07-11] MEDS: lisinopriL 5 MG TAB PO SCH (09:00)
[2020-07-11] MEDS: SERTRALINE HCL 50 MG TAB PO SCH (09:46)
[2020-07-11] MEDS: SEVELAMER CARBONATE 800 MG TABLET PO SCH ×3 (09:46→18:15)
[2020-07-11] MEDS: ASPIRIN 81 MG CHEWABLE TABLET PO SCH (09:47)
[2020-07-11] MEDS: CLOPIDOGREL 75 MG TABLET PO SCH (09:47)
[2020-07-11] MEDS: GABAPENTIN 100 MG CAP PO SCH ×3 (09:47→20:15)
[2020-07-11] MEDS: FOLIC ACID 1 MG TABLET PO SCH (09:47)
--- NOTE | 2020-07-11 15:25 | P.PN ---
Subjective Date of Service: 07/11/20 Chief Complaint: Nausea and vomiting and diarrhea Subjective: No new changes (seen this morning, reported she was tired, with nausea, and UTI symptoms over the past few days) Review of Systems 10-point ROS is otherwise unremarkable Physical Examination - Vital Signs Temperature: 96.5 F Blood Pressure: 181/85 Pulse: 70 Respirations: 19 Pulse Ox (%): 99 - Studies Laboratory Data (last 24 hrs) 07/10/20 15:45: PT 15.2 H, INR 1.32 07/10/20 15:45: WBC 5.90, Hgb 11.7 L, Hct 37.1, Plt Count 231 07/10/20 15:45: Sodium 130 L, Potassium 4.3, BUN 28 H, Creatinine 3.92 H, Glucose 90, Magnesium 1.8, Total Bilirubin 0.5, AST 12 L, ALT 8 L, Alkaline Phosphatase 116, Lipase 84 Assessment & Plan Physician Review Additional Text: Physical Exam General: NAD, AAOx3 HEENT: Sclerae anicteric, normal conjunctiva, dry mucous membranes Respiratory: Clear to auscultation bilaterally, Normal air movement Cardiovascular: Regular rate/rhythm, Normal S1 S2 Gastrointestinal: Normal bowel sounds, Soft and benign, Non-distended, No tenderness Ext: Bilateral venous stasis dermatitis, 2+ pitting edema bilaterally Skin: Chronic nonhealing ulcer on the lateral aspect of the left foot Neuro: Normal speech, Normal strength at 5/5 x4 ext Problem list Intractable nausea and vomiting Chronic diastolic CHF CAD COPD Hypertension Chronic Lymphedema Chronic right pleural effusion Chronic venous hypertension with ulcer and inflammation involving bilateral legs -continues with nausea/vomiting, not tolerating much diet, continue supportive measures, anti-emetics -pt has received multiple rounds of antibiotics in the last several months -c/diff and lactoferrin ordered, no result yet -continue IV Flagyl for now -patient endorses some dysuria and other UTI symptoms, will add Levaquin -nephrology consulted for hemodialysis -resume patient's home medications as tolerated. -wound care consulted -f/u cultures Dispo: anticipate dc home in 24-48hrs Time Spent Managing Pts Care (In Minutes): 35
--- NOTE | 2020-07-11 16:35 | EKG ---
Test Date: 2020-07-10 Test Time: 16:22:38 Day Trader: CATRINA MEASUREMENT RESULTS: Intervals: Rate: 66 [place]: 206 QRSD: 104 QT: 466 QTc: 488 [place]: P: 111 [place]: 206 QRS: 133 T: 101 INTERPRETIVE STATEMENTS: Suspect arm lead reversal, interpretation assumes no reversal Normal sinus rhythm Right axis deviation Incomplete right bundle branch block Septal infarct, age undetermined T wave abnormality, consider lateral ischemia Abnormal ECG Compared to ECG 06/27/2020 14:17:40 Right-axis deviation now present T-wave abnormality now present Left posterior fascicular block no longer present ST (T wave) deviation no longer present Myocardial infarct finding still present Possible ischemia still present Electronically Signed On 07-11-20 16:33:07 CDT by Taj Raymond
--- NOTE | 2020-07-11 18:38 | CON ---
Date of Consultation: 07/11/2020 Reason For Consultation: Elevated BUN and creatinine, fluid management. History Of Present Illness: This is a pleasant 65-year-old female, well known to me from dialysis with significant past medical history of hypertension; hyperlipidemia; end-stage renal disease, on hemodialysis at [facility]; coronary artery disease status post CABG; diabetes complicated with neuropathy; hyperlipidemia; COPD. The patient came to the hospital complaining from diarrhea with poor intake for the last 1 week to 10 days, feeling weak, fatigued, losing energy. The patient denied any fever or chills. On arrival to the hospital, the patient had ER visit before hydrated with IV fluids and discharged, but did not feel well. Allergies: TO MORPHINE, VANCOMYCIN, TRAMADOL, TRAZODONE, NITROGLYCERIN. Home Medications: Include allopurinol, aspirin, Plavix, Epogen, gabapentin, carvedilol, lisinopril, Lasix, Zoloft, Renvela. Past Surgical History: Includes: 1. CABG. 2. PermCath placement. 3. Rectal surgery. Past Medical History: 1. COPD. 2. Hypertension. 3. Coronary artery disease status post CABG. 4. End-stage renal disease. 5. Diabetes complicated with neuropathy and nephropathy. 6. Cholecystectomy. Family History: Positive for hypertension, diabetes. Social History: Denies smoking. Denies drinking. Denies drug of abuse. Review of Systems: Head and Neck: No red eye. No ear pain. GI: Has diarrhea. Has nausea without any vomiting. : No polyuria, no dysuria, no hematuria. Special Assets Officer: No vaginal discharge. Respiratory: No shortness of breath. Cardiovascular: No chest pain. Endocrine: No polydipsia. Skin: No rash. Physical Examination: Vital Signs: When I saw the patient, blood pressure of 159/75, pulse of 64, afebrile. Chest: Clear to auscultation. Heart S1, S2. Systolic murmur. Abdomen: Soft, nontender. Extremities: Compression dressing in both lower extremity. Neurologic: Alert and oriented, nonfocal. Laboratory Data: Lab data for the patient, WBC 5.5, H and H 10.8/32.7. Sodium 131, potassium 3.8, bicarb 24, BUN 29, creatinine 3.9, GFR of 12, calcium 7.7, magnesium 1.7, albumin 2.6, corrected calcium is 8.5. Assessment And Plan: 1. End-stage renal disease. We will continue the patient on dialysis schedule. 2. Hypertension, controlled, not optimal. We will follow up blood pressure after dialysis and we will monitor. 3. Secondary hyperpara, stable. Continue current treatment. 4. Anemia of chronic kidney disease. Resume BRONWYN. 5. Hyponatremia dilutional secondary to renal failure. Will be corrected on dialysis. time spend exam the patient face to face , discussing with patient , reviewing la and radiology date, placing order , discussing the case with staff and with other team consultan and hospitalist 65 min. GAMA Voice ID: [id number] Report ID: [id number]
[2020-07-11] MEDS: BUDESONIDE 0.5 MG/2 ML NEB IH SCH (19:40)
[2020-07-11] MEDS: ATORVASTATIN 40 MG TAB PO SCH (20:14)
[2020-07-11] MEDS: HYDROCODONE/APAP 7.5/325 MG TAB PO PRN (20:15)
[2020-07-12] MEDS: HEPARIN 5000 UNIT/ML 1 ML VIAL SQ SCH ×3 (01:36→16:46)
[2020-07-12] MEDS: METRONIDAZOLE 500mg IVPB 500 MG/100 ML BAG IV SCH ×2 (01:37→08:09)
[2020-07-12] MEDS: HYDROCODONE/APAP 7.5/325 MG TAB PO PRN ×3 (01:49→21:10)
[2020-07-12] MEDS: DIPHENHYDRAMINE 25 MG TAB/CAP PO PRN ×2 (01:50→09:57)
[2020-07-12] MEDS: ALBUTEROL 2.5 MG/3 ML NEB SOL NEB SCH ×4 (02:10→20:00)
[2020-07-12] MEDS: IPRATROPIUM BROM 0.5MG/2.5ML NEB SCH ×4 (02:10→20:00)
[2020-07-12 04:07] LABS: Absolute Lymphocytes (CBC) 0.9 K/uL (0.7-4.9); Basophils % 1.1 % (0-1.3); Hematocrit 32.9 % (36.0-45.0); Lymphocytes % 24.8 % (15.3-44.8); MPV 7.1 fL (7.6-11.3); RBC Red Blood Cell Count 3.84 M/uL (3.86-4.86)
[2020-07-12 04:47] LABS: Albumin 2.2 g/dL (3.4-5.0); Magnesium 1.7 mg/dL (1.8-2.4); Phosphorus 3.4 mg/dL (2.5-4.9); Potassium 4.3 mmol/L (3.5-5.1)
[2020-07-12] MEDS: INSULIN -REGULAR HUMAN 50 UNIT/0.5 ML ML SQ SCH ×4 (07:30→21:00)
[2020-07-12] MEDS: carvediloL 6.25 MG TAB PO SCH ×2 (08:09→21:00)
[2020-07-12] MEDS: ASPIRIN 81 MG CHEWABLE TABLET PO SCH (08:09)
[2020-07-12] MEDS: SEVELAMER CARBONATE 800 MG TABLET PO SCH ×3 (08:09→16:46)
[2020-07-12] MEDS: FOLIC ACID 1 MG TABLET PO SCH (08:09)
[2020-07-12] MEDS: GABAPENTIN 100 MG CAP PO SCH ×3 (08:09→21:00)
[2020-07-12] MEDS: CLOPIDOGREL 75 MG TABLET PO SCH (08:10)
[2020-07-12] MEDS: lisinopriL 5 MG TAB PO SCH (08:10)
[2020-07-12] MEDS: HYDRALAZINE HCL 25 MG TABLET PO SCH ×2 (08:10→21:00)
[2020-07-12] MEDS: BUDESONIDE 0.5 MG/2 ML NEB IH SCH ×2 (08:12→20:00)
[2020-07-12] MEDS: SERTRALINE HCL 50 MG TAB PO SCH (08:13)
[2020-07-12] MEDS: DICYCLOMINE HCL 10 MG CAP PO PRN (08:25)
[2020-07-12] MEDS: ONDANSETRON 4 MG/2 ML VIAL IV PRN ×2 (09:56→21:10)
[2020-07-12] MEDS: LIPASE/PROTEASE/AMYLASE CAP PO SCH ×2 (12:23→16:46)
--- NOTE | 2020-07-12 12:58 | CON ---
History Of Present Illness: The patient is a 65-year-old female. I was consulted for concern regard ing possible diarrhea and infectious reason for diarrhea. The patient is having loose motion for the last few days and also having dry hives. Denies any abdominal pain, but having pain in her legs and in her back which she has because of arthritis and neuropathy. The patient denies any fevers. She is a dialysis patient for 1 year now. I know her from previous admissions when she was admitted for osteomyelitis to her feet. The patient has significant past medical history of diabetic foot ulcers, chronic pleural effusion to the right side, chronic lymphedema, on hemodialysis. Has been having di arrhea for more than 1 week. Denies any blood in her stools. No vomiting. Whenever she eats, it co mes out. Past Medical History: As per HPI. Social History: Nonsmoker, nondrinker. Family History: Noncontributory. Medications: Levaquin, Flagyl. See MAR for other medications. Allergies: MORPHINE, VANCOMYCIN, TRAZODONE, TRAMADOL, MORPHINE, NITROGLYCERIN. Review of Systems: A 10-point review was performed. Physical Examination: General: This is a 65-year-old female, lying in bed, not in any acute cardiopulmonary distress. Vital Signs: Temperature 97, pulse 61, respirations 16, blood pressure 147/70. HEENT: Unremarkable. Neck: Supple. Lungs: Basal crackles, right more than left. Heart: S1, S2. Regular. Abdomen: Soft, nontender. Bowel sounds present. Extremity: Trace edema. Multiple small wounds noted on the feet and left leg. One wound was noted around the mid spangler area. Laboratory Data: Shows WBC 3.5, hemoglobin 10.5, platelets are 179. Chemistry shows sodium 139, pot assium 4.3, chloride 101, bicarb 25, BUN 19, creatinine 2.9, glucose is 81. Albumin is 2.2. Micro d perico; stool studies are pending. Assessment And Plan: A 65-year-old female with diarrhea, stool studies are pending. We will recomme nd to get stool for WBC and also recommend possible starting the patient on digestive enzyme, probiot ic and Questran. We will recommend also to stop antibiotic at this time and monitor the patient for any signs of infection. Continue wound care as per Wound Care team. Leukopenia and also protein-marilin orie malnourishment. The patient also has ascites and right lower lobe pleural effusions. We will c ontinue to monitor for signs of infection. Thank you Dr. Nettles for consult. NF/MODL Voice ID: [id number] Report ID: [id number]
[2020-07-12] MEDS ORDERED: EPOETIN 4,000 UNIT/ML VIAL IV SCH (13:00)
--- NOTE | 2020-07-12 14:48 | P.PN ---
Subjective Date of Service: 07/12/20 Chief Complaint: Nausea and vomiting and diarrhea Subjective: Improving (slight improvement, reports 4-5 BMs yesterday (diarrhea), tolerating PO this morning, no nausea/vomiting) Review of Systems 10-point ROS is otherwise unremarkable Physical Examination - Vital Signs Temperature: 97.1 F Blood Pressure: 124/72 Pulse: 52 Respirations: 17 Pulse Ox (%): 97 Assessment & Plan Physician Review Additional Text: Physical Exam General: NAD, AAOx3 HEENT: Sclerae anicteric, normal conjunctiva, dry mucous membranes Respiratory: Clear to auscultation bilaterally, Normal air movement Cardiovascular: Regular rate/rhythm, Normal S1 S2 Gastrointestinal: Normal bowel sounds, Soft and benign, Non-distended, No tenderness Ext: Bilateral venous stasis dermatitis, 2+ pitting edema bilaterally Skin: Chronic nonhealing ulcer on the lateral aspect of the left foot Neuro: Normal speech, Normal strength at 5/5 x4 ext Problem list Intractable nausea and vomiting, improving diarrhea Chronic diastolic CHF CAD COPD Hypertension Chronic Lymphedema Chronic right pleural effusion Chronic venous hypertension with ulcer and inflammation involving bilateral legs -nausea and vomiting improving the common tolerated clear liquid diet, does not want to advance diet gets -continues with 4-5 bowel movements yesterday, which she states is better than what she had prior to admission -pt has received multiple rounds of antibiotics in the last several months -c/diff and lactoferrin ordered, no result yet -continue IV Flagyl for now -patient endorses some dysuria and other UTI symptoms, Levaquin added on 07/11, urine culture grew mixed todd, ID consulted, will discontinue antibiotics and monitor over the next 24 hr -discussed diarrhea with ID, recommended trial of creon -nephrology consulted for hemodialysis -resume patient's home medications as tolerated. -wound care consulted -f/u cultures Dispo: anticipate dc home in 24hrs if remains afebrile and diarrhea improves Time Spent Managing Pts Care (In Minutes): 35
--- NOTE | 2020-07-12 15:13 | PN ---
Date of Progress Note: 07/12/2020 Subjective: The patient admitted with gastroenteritis. The patient still has diarrhea, has abdominal pain. The patient is status post dialysis yesterday. Physical Examination: Vital Signs: Blood pressure 147/70, pulse of 61. The patient had removed 3 L yesterday. Chest: Clear to auscultation. Heart: S1, S2. Regular. Systolic murmur. Abdomen: Soft, nontender. Extremity: Dressing in both lower extremities. Neurologic: Alert and oriented x3. Laboratory Data: WBC 3.5, H and H 10.5/32.9. Sodium 139, potassium 4.3, bicarb 25, BUN 19, creatinine is 2.9, calcium 7.5, phosphorus 3.4, magnesium 1.7, albumin 2.2. Corrected calcium is 9. Current Medications: The patient on include Levaquin 500 every 48 hours, metronidazole, albuterol, heparin, Plavix, carvedilol 6.25 b.i.d., hydralazine 25 t.i.d., lisinopril 5 daily, Zoloft, gabapentin, folic acid. Assessment And Plan: 1. End-stage renal disease. We will continue the patient on dialysis. The patient has TTS. We will schedule for dialysis tomorrow. 2. Hypertension, controlled, optimal. I am going to go ahead and adjust her blood pressure medication. We will change her lisinopril to 10 mg, decrease her hydralazine to b.i.d. Plan to discontinue hydralazine. 3. Gastroenteritis. Continue current antibiotic. We will follow up with Primary. 4. Edema, currently resolved. We will follow up with dialysis. We will challenge gently. 5. Secondary hyperparathyroidism. Continue current binder. 6. Anemia of chronic kidney disease. We will resume Retacrit. time spend exam the patient face to face , discussing with patient , reviewing la and radiology date, placing order , discussing the case with staff and with other team consultan and hospitalist 45 min. GAMA Voice ID: [id number] Report ID: [id number] AZUCENA
[2020-07-12] MEDS: ATORVASTATIN 40 MG TAB PO SCH (21:00)
[2020-07-13] MEDS: HEPARIN 5000 UNIT/ML 1 ML VIAL SQ SCH ×3 (00:16→16:09)
[2020-07-13] MEDS: ALBUTEROL 2.5 MG/3 ML NEB SOL NEB SCH ×5 (02:00→19:25)
[2020-07-13] MEDS: IPRATROPIUM BROM 0.5MG/2.5ML NEB SCH ×5 (02:00→19:25)
[2020-07-13 03:58] LABS: Absolute Lymphocytes (CBC) 1.2 K/uL (0.7-4.9); Hematocrit 35.1 % (36.0-45.0); MPV 7.3 fL (7.6-11.3); RBC Red Blood Cell Count 4.05 M/uL (3.86-4.86)
[2020-07-13 04:13] LABS: AST/SGOT 10 U/L (15-37); Albumin 2.3 g/dL (3.4-5.0); Alkaline Phosphatase 96 U/L (45-117); BUN Blood Urea Nitrogen 19 mg/dL (7-18); Bicarbonate 29 mmol/L (21-32); Bilirubin Total 0.4 mg/dL (0.2-1.0); Glucose Level 85 mg/dL (74-106); Magnesium 1.8 mg/dL (1.8-2.4); Phosphorus 3.7 mg/dL (2.5-4.9); Potassium 5.3 mmol/L (3.5-5.1); Protein, Total 6.1 g/dL (6.4-8.2); Sodium Level 135 mmol/L (136-145)
[2020-07-13 04:15] LABS: ALT/SGPT < 6 U/L (12-78)
[2020-07-13] MEDS: INSULIN -REGULAR HUMAN 50 UNIT/0.5 ML ML SQ SCH ×4 (07:30→20:26)
[2020-07-13] MEDS: HYDRALAZINE HCL 25 MG TABLET PO SCH (08:12)
[2020-07-13] MEDS: FOLIC ACID 1 MG TABLET PO SCH (08:12)
[2020-07-13] MEDS: CLOPIDOGREL 75 MG TABLET PO SCH (08:13)
[2020-07-13] MEDS: SEVELAMER CARBONATE 800 MG TABLET PO SCH ×3 (08:13→16:09)
[2020-07-13] MEDS: carvediloL 6.25 MG TAB PO SCH ×2 (08:13→21:00)
[2020-07-13] MEDS: GABAPENTIN 100 MG CAP PO SCH ×3 (08:13→20:26)
[2020-07-13] MEDS: lisinopriL 10 MG TAB PO SCH (08:13)
[2020-07-13] MEDS: ASPIRIN 81 MG CHEWABLE TABLET PO SCH (08:13)
[2020-07-13] MEDS: SERTRALINE HCL 50 MG TAB PO SCH (08:13)
[2020-07-13] MEDS: HYDROCODONE/APAP 7.5/325 MG TAB PO PRN ×3 (08:30→21:28)
[2020-07-13] MEDS: LIPASE/PROTEASE/AMYLASE CAP PO SCH ×3 (08:31→16:18)
[2020-07-13] MEDS: BUDESONIDE 0.5 MG/2 ML NEB IH SCH ×2 (08:55→19:25)
[2020-07-13] MEDS ORDERED: MEDIHONEY 44 ML TOPICAL TUBE TOP SCH (09:00)
[2020-07-13] MEDS: DIPHENHYDRAMINE 25 MG TAB/CAP PO PRN (09:40)
[2020-07-13 11:40] LABS: C.diff Antigen/Toxin Ag neg : Tox neg (NEG : NEG)
[2020-07-13] MEDS: DICYCLOMINE HCL 10 MG CAP PO PRN (14:48)
--- NOTE | 2020-07-13 15:05 | PN ---
Date of Progress Note: 07/13/2020 Subjective: The patient was admitted with diarrhea, gastroenteritis. The patient continued to have diarrhea. Physical Examination: Vital Signs: Blood pressure 125/67, pulse of 66, afebrile. Chest: Clear to auscultation. Heart: S1, S2. Regular. Abdomen: Soft, nontender. Extremity: Dressing in both legs. Neuro: Alert. No focality. Laboratory Data: WBC 3.8, H and H 11.1/35.1. Sodium 135, potassium 5.3, bicarb 29, BUN 19, creatinine 3.3, calcium 7.7, phosphorus 3.7. Current Medications: The patient on include; 1. Aspirin. 2. Phenergan. 3. tylenol 4. Albuterol. 5. Plavix. 6. Epogen. 7. Atorvastatin. 8. Carvedilol 6.25 b.i.d. 9. Hydralazine 25 t.i.d. 10. Lisinopril 10. 11. Gabapentin. 12. Zoloft. 13. Renvela. 14. Folic acid. Assessment And Plan: 1. End-stage renal disease. We will continue the patient on dialysis TTS. 2. Secondary hyperparathyroidism. Continue Renvela. 3. Anemia. Continue BRONWYN. 4. Gastroenteritis. Continue current treatment. Follow up with GI. 5. Hypertension. Blood pressure has been well controlled. I am going to go ahead and discontinue hydralazine, continue lisinopril for the time being, and we will follow up the patient. time spend exam the patient face to face , discussing with patient , reviewing la and radiology date, placing order , discussing the case with staff and with other team consultan and hospitalist 45 min. GAMA Voice ID: [id number] Report ID: [id number] AZUCENA
[2020-07-13] MEDS: CHOLESTYRAMINE/ASP 4 GM/PKT PO SCH (16:09)
--- NOTE | 2020-07-13 16:34 | P.PN ---
Subjective Date of Service: 07/13/20 Chief Complaint: Nausea and vomiting and diarrhea Subjective: No new changes (Continues with nausea/vomiting, diarrhea soon after eating. Denies abdominal pain, denies acid reflux. leg swelling improved) Review of Systems 10-point ROS is otherwise unremarkable Physical Examination - Vital Signs Temperature: 97.2 F Blood Pressure: 141/68 Pulse: 63 Respirations: 16 Pulse Ox (%): 96 - Studies Microbiology Data (last 24 hrs): 07/11/20 15:00 Stool Culture & Sensitivity - Final 07/11/20 02:49 Catheterized Urine [place] Count - Final <10,000 CFU/ML. 07/11/20 02:49 Catheterized Urine - Final MIXED TODD. Assessment & Plan Physician Review Additional Text: Physical Exam General: NAD, AAOx3 HEENT: Sclerae anicteric, normal conjunctiva, dry mucous membranes Respiratory: Clear to auscultation bilaterally, Normal air movement Cardiovascular: Regular rate/rhythm, Normal S1 S2 Gastrointestinal: Soft and benign, Non-distended, No tenderness Ext: Bilateral venous stasis dermatitis, 1+ pitting edema bilaterally Skin: Chronic nonhealing ulcer on the lateral aspect of the left foot Neuro: Normal speech, Normal strength at 5/5 x4 ext Problem list Intractable nausea and vomiting diarrhea Chronic diastolic CHF CAD COPD Hypertension Chronic Lymphedema Chronic right pleural effusion Chronic venous hypertension with ulcer and inflammation involving bilateral legs -nausea and vomiting continues, continue CLD, did not want questran yesterday. Creon started 07/12 -consult GI, recommend increased questran/creon dosing -waiting stool studies -pt has received multiple rounds of antibiotics in the last several months, - c/diff and lactoferrin, stool WBCs ordered, no result yet -ID consulted - recommend trial off antibiotics, urine culture: mixed todd -nephrology consulted for hemodialysis -continue home medications as appropriate -wound care consulted -f/u cultures Dispo: anticipate dc home in 24-48hrs if remains afebrile and symptoms improve Time Spent Managing Pts Care (In Minutes): 35
[2020-07-13 17:40] LABS: HBsAG Nonreactive (Nonreactive)
[2020-07-13] MEDS: ATORVASTATIN 40 MG TAB PO SCH (20:26)
[2020-07-14] MEDS: ALBUTEROL 2.5 MG/3 ML NEB SOL NEB SCH ×4 (01:20→20:10)
[2020-07-14] MEDS: IPRATROPIUM BROM 0.5MG/2.5ML NEB SCH ×4 (01:20→20:10)
[2020-07-14] MEDS: HEPARIN 5000 UNIT/ML 1 ML VIAL SQ SCH ×3 (02:05→17:31)
[2020-07-14] MEDS: HYDROCODONE/APAP 7.5/325 MG TAB PO PRN ×3 (03:29→21:50)
[2020-07-14 04:30] LABS: Absolute Lymphocytes (CBC) 1.2 K/uL (0.7-4.9); Basophils % 0.7 % (0-1.3); Hematocrit 36.3 % (36.0-45.0); Lymphocytes % 24.6 % (15.3-44.8); MPV 7.4 fL (7.6-11.3)
[2020-07-14 04:43] LABS: Albumin 2.4 g/dL (3.4-5.0); Potassium 5.3 mmol/L (3.5-5.1)
[2020-07-14] MEDS: INSULIN -REGULAR HUMAN 50 UNIT/0.5 ML ML SQ SCH ×4 (07:30→20:52)
--- NOTE | 2020-07-14 08:17 | P.PN ---
Subjective Date of Service: 07/15/20 Chief Complaint: Nausea and vomiting and diarrhea Reports diarrhea not improved. Had loose stools today. Physical Examination - Vital Signs Temperature: 97.0 F Blood Pressure: 134/65 Pulse: 57 Respirations: 18 Pulse Ox (%): 96 - Physical Exam General: In no apparent distress HEENT: Atraumatic, Normocephalic Neck: Supple Respiratory: Clear to auscultation bilaterally Cardiovascular: No rubs, No murmurs Gastrointestinal: Non-distended Neurological: Normal speech, Normal tone - Studies Microbiology Data (last 24 hrs): 07/11/20 15:00 Stool Culture & Sensitivity - Final 07/11/20 02:49 Catheterized Urine [place] Count - Final <10,000 CFU/ML. 07/11/20 02:49 Catheterized Urine - Final MIXED BENJAMIN. Assessment And Plan - Plan # ESRD on HD TTS No acute indication for HD today Next HD tomorrow Renal vitamin daily Renal diet Monitor renal panel # Gastroenteritis Hx of gastric surgery Diarrhea not improved On creon, adding questran if pt agrees If no further improvement, may trial flagyl po tid x 2 wks for ? SIBO # Anemia Cont BRONWYN # HyperPO4 Cont renvela # Htn BP ok Cont current BP regimen
[2020-07-14] MEDS: BUDESONIDE 0.5 MG/2 ML NEB IH SCH ×2 (08:18→20:10)
[2020-07-14] MEDS: FOLIC ACID 1 MG TABLET PO SCH (08:44)
[2020-07-14] MEDS: lisinopriL 10 MG TAB PO SCH (08:44)
[2020-07-14] MEDS: CLOPIDOGREL 75 MG TABLET PO SCH (08:44)
[2020-07-14] MEDS: ASPIRIN 81 MG CHEWABLE TABLET PO SCH (08:44)
[2020-07-14] MEDS: GABAPENTIN 100 MG CAP PO SCH ×3 (08:44→20:52)
[2020-07-14] MEDS: SEVELAMER CARBONATE 800 MG TABLET PO SCH ×3 (08:44→17:31)
[2020-07-14] MEDS: carvediloL 6.25 MG TAB PO SCH ×2 (08:45→20:49)
[2020-07-14] MEDS: SERTRALINE HCL 50 MG TAB PO SCH (08:45)
[2020-07-14] MEDS: LIPASE/PROTEASE/AMYLASE CAP PO SCH ×3 (08:46→17:30)
[2020-07-14] MEDS: CHOLESTYRAMINE/ASP 4 GM/PKT PO SCH ×2 (08:46→17:29)
[2020-07-14] MEDS: DIPHENHYDRAMINE 25 MG TAB/CAP PO PRN ×2 (08:52→21:50)
[2020-07-14] MEDS: ONDANSETRON 4 MG/2 ML VIAL IV PRN (09:07)
--- NOTE | 2020-07-14 11:29 | P.PN ---
Subjective Date of Service: 07/14/20 Chief Complaint: Nausea and vomiting and diarrhea Patient seen examined at bedside. Diarrhea improving. Stool cultures negative however they did grow yeast. Patient also complaining of some vaginal pruritus plan with the discharge. Review of Systems 10-point ROS is otherwise unremarkable Physical Examination - Vital Signs Temperature: 97.0 F Blood Pressure: 122/62 Pulse: 55 Respirations: 18 Pulse Ox (%): 94 - Studies Microbiology Data (last 24 hrs): 07/11/20 15:00 Stool Culture & Sensitivity - Final 07/11/20 02:49 Catheterized Urine [place] Count - Final <10,000 CFU/ML. 07/11/20 02:49 Catheterized Urine - Final MIXED TODD. Assessment And Plan - Plan Physical exam: General: No acute distress. Patient alert oriented. HEENT: Unremarkable. Neck: Supple. Lungs: Basal crackles, right more than left. Heart: S1, S2. Regular. Abdomen: Soft, nontender. Bowel sounds present. Extremity: Trace edema. Multiple small wounds noted on the feet and left leg. One wound was noted around the mid spangler area. Assessment: 1. Diarrhea 2. Multiple small wound wounds to bilateral feet and left leg 3. Protein calorie malnourished Plan: 1. Fecal white blood cells negative, fecal culture sensitivity negative for Shigella/Salmonella/Campylobacter species. There was some yeast in the stool. Pending gallbladder parasite results. Continue digestive enzymes, probiotic, and Questran. Antibiotics have been stopped this time. Continue monitor for signs of infection. Patient is also complaining of some vaginal pruritus as well as discharge. Recommending starting patient on oral fluconazole. 2. Continue wound care per wound care treatment. 3. Recommend increase the protein -medical management per primary team -continue monitor CBC and BMP -continue monitor for signs infection Plan of care discussed with Dr. Gaytan Thank you for consultation. Physician Review Additional Text: Physical Exam General: NAD, AAOx3 HEENT: Sclerae anicteric, normal conjunctiva, dry mucous membranes Respiratory: Clear to auscultation bilaterally, Normal air movement Cardiovascular: Regular rate/rhythm, Normal S1 S2 Gastrointestinal: Soft and benign, Non-distended, No tenderness Ext: Bilateral venous stasis dermatitis, 1+ pitting edema bilaterally Skin: Chronic nonhealing ulcer on the lateral aspect of the left foot Neuro: Normal speech, Normal strength at 5/5 x4 ext Problem list Intractable nausea and vomiting diarrhea Chronic diastolic CHF CAD COPD Hypertension Chronic Lymphedema Chronic right pleural effusion Chronic venous hypertension with ulcer and inflammation involving bilateral legs -nausea and vomiting continues, continue CLD, did not want questran yesterday. Creon started 07/12 -consult GI, recommend increased questran/creon dosing -waiting stool studies -pt has received multiple rounds of antibiotics in the last several months, - c/diff and lactoferrin, stool WBCs ordered, no result yet -ID consulted - recommend trial off antibiotics, urine culture: mixed todd -nephrology consulted for hemodialysis -continue home medications as appropriate -wound care consulted -f/u cultures Dispo: anticipate dc home in 24-48hrs if remains afebrile and symptoms improve
--- NOTE | 2020-07-14 17:29 | P.PN ---
Subjective Date of Service: 07/14/20 Chief Complaint: Nausea and vomiting and diarrhea Subjective: Improving (n/v improving but having dry heaves, reports diarrhea improved as well overnight. diarrhea occurs after eating) Review of Systems 10-point ROS is otherwise unremarkable Physical Examination - Vital Signs Temperature: 97 F Blood Pressure: 144/63 Pulse: 66 Respirations: 16 Pulse Ox (%): 93 Assessment & Plan Physician Review Additional Text: Physical Exam General: NAD, AAOx3, appears fatigued HEENT: Sclerae anicteric, normal conjunctiva, dry mucous membranes Respiratory: Clear to auscultation bilaterally, Normal air movement Cardiovascular: Regular rate/rhythm, Normal S1 S2 Gastrointestinal: Soft and benign, Non-distended, No tenderness Ext: Bilateral venous stasis dermatitis, 1+ pitting edema bilaterally, wrapped in BLAYNE bandages [employer]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 Creon started 07/12 - pt states she thinks questran causes diarrhea -consult GI, recommend increased questran/creon dosing on 07/13 -stool studies negative for c diff, lactoferrin, WBCs, positive for yeast - discussed with GI, no need to treat -pt has received multiple rounds of antibiotics in the last several months -ID consulted - recommend trial off antibiotics, urine culture: mixed todd -diflucan 150mg today for vaginal pruritus/discharge -nephrology consulted for hemodialysis -continue home medications as appropriate -wound care consulted -f/u cultures Dispo: anticipate dc home in 24-48hrs if remains afebrile and symptoms improve Time Spent Managing Pts Care (In Minutes): 35
[2020-07-14] MEDS ORDERED: FLUCONAZOLE 100 MG TAB PO ONE (18:00)
[2020-07-14] MEDS: ATORVASTATIN 40 MG TAB PO SCH (20:52)
[2020-07-15] MEDS: HEPARIN 5000 UNIT/ML 1 ML VIAL SQ SCH ×3 (01:43→16:09)
[2020-07-15] MEDS: IPRATROPIUM BROM 0.5MG/2.5ML NEB SCH ×4 (02:00→20:00)
[2020-07-15] MEDS: ALBUTEROL 2.5 MG/3 ML NEB SOL NEB SCH ×4 (02:00→20:00)
[2020-07-15] MEDS: HYDROCODONE/APAP 7.5/325 MG TAB PO PRN ×2 (05:19→20:28)
[2020-07-15] MEDS: DIPHENHYDRAMINE 25 MG TAB/CAP PO PRN ×3 (05:20→20:31)
[2020-07-15 05:35] LABS: Albumin 2.3 g/dL (3.4-5.0); Bilirubin Total 0.4 mg/dL (0.2-1.0); C-Reactive Protein 3.61 mg/L (<3.00); Phosphorus 3.4 mg/dL (2.5-4.9); Protein, Total 6.2 g/dL (6.4-8.2)
[2020-07-15] MEDS: INSULIN -REGULAR HUMAN 50 UNIT/0.5 ML ML SQ SCH ×4 (07:30→20:19)
[2020-07-15] MEDS: BUDESONIDE 0.5 MG/2 ML NEB IH SCH ×2 (08:00→20:00)
[2020-07-15] MEDS: SERTRALINE HCL 50 MG TAB PO SCH (08:16)
[2020-07-15] MEDS: CHOLESTYRAMINE/ASP 4 GM/PKT PO SCH ×2 (08:16→16:09)
[2020-07-15] MEDS: CLOPIDOGREL 75 MG TABLET PO SCH (08:17)
[2020-07-15] MEDS: SEVELAMER CARBONATE 800 MG TABLET PO SCH ×3 (08:17→16:08)
[2020-07-15] MEDS: ASPIRIN 81 MG CHEWABLE TABLET PO SCH (08:17)
[2020-07-15] MEDS: lisinopriL 10 MG TAB PO SCH (08:17)
[2020-07-15] MEDS: carvediloL 6.25 MG TAB PO SCH ×2 (08:18→20:18)
[2020-07-15] MEDS: FOLIC ACID 1 MG TABLET PO SCH (08:19)
[2020-07-15] MEDS: GABAPENTIN 100 MG CAP PO SCH ×3 (08:19→20:18)
[2020-07-15] MEDS: LIPASE/PROTEASE/AMYLASE CAP PO SCH ×3 (08:19→16:12)
[2020-07-15] MEDS: MEDIHONEY 44 ML TOPICAL TUBE TOP SCH (08:20)
[2020-07-15] MEDS: METRONIDAZOLE 250mg IVPB 250 MG/50 ML BAG IV SCH ×2 (09:43→16:09)
[2020-07-15] MEDS: LACTOBACILLUS/ACIDOPHILUS TAB PO SCH ×2 (14:00→20:17)
--- NOTE | 2020-07-15 14:55 | PN ---
Date of Progress Note: 07/15/2020 Subjective: The patient was admitted with gastroenteritis. The patient still has nausea and diarrhea. Physical Examination: Vital Signs: When I saw the patient, blood pressure 139/65, pulse of 63, afebrile. Chest: Clear to auscultation. Heart: S1, S2. Systolic murmur. Abdomen: Soft, nontender. Extremities: Dressing both legs, multiple ulcer. Neurologic: Alert. No focality. Laboratory Data: Hemoglobin is 11.4, sodium 131, potassium 5.0, bicarb 27, BUN 14, creatinine 3.3, GFR of 14, calcium 7.5, phosphorus 3.4. Current Medications: Include: 1. Aspirin. 2. Fluconazole. 3. Metronidazole. 4. tylenol . 5. Plavix. 6. Epogen. 7. Carvedilol 6.25. 8. Lisinopril 10 daily. 9. Zoloft. 10. Gabapentin. 11. Renvela. Assessment And Plan: 1. End-stage renal disease. Normal volume. I am going to continue the patient on dialysis. Schedule as TTS. The patient is scheduled for dialysis today. 2. Hypertension, controlled, optimal. Continue current treatment. Keep holding hydralazine. 3. Anemia of chronic kidney disease. Continue BRONWYN. 4. Secondary hyperparathyroidism. Decrease Renvela to 1 tablet with each meal. 5. Gastroenteritis, colitis. Follow up with primary and Pulmonary and gastrointestinal. 6. Hyponatremia. Will be corrected on dialysis. time spend exam the patient face to face , discussing with patient , reviewing la and radiology date, placing order , discussing the case with staff and with other team consultan and hospitalist 45 min. GAMA Voice ID: [id number] Report ID: [id number] [facility]ITALDannielle
--- NOTE | 2020-07-15 17:44 | P.PN ---
Subjective Date of Service: 07/15/20 Chief Complaint: Nausea and vomiting and diarrhea Subjective: No new changes (continues with nausea / dry heaves, and diarrhea) Review of Systems 10-point ROS is otherwise unremarkable Physical Examination - Vital Signs Temperature: 97.7 F Blood Pressure: 137/75 Pulse: 69 Respirations: 16 Pulse Ox (%): 94 Assessment & Plan Physician Review Additional Text: Physical Exam General: NAD, AAOx3, appears fatigued HEENT: Sclerae anicteric, normal conjunctiva, dry mucous membranes Respiratory: Clear to auscultation bilaterally, Normal air movement CV: Regular rate/rhythm, Normal S1 S2 Abd: Soft and benign, Non-distended, No tenderness Ext: Bilateral venous stasis dermatitis, trace to 1+ pitting edema bilaterally Neuro: Normal speech, normal affect Problem list Intractable nausea and vomiting, and Diarrhea - likely secondary to autonomic vs diabetic neuropathy, gastroparesis vs bacterial overgrowth Chronic diastolic CHF Vaginal discharge CAD COPD Hypertension Chronic Lymphedema Chronic right pleural effusion Chronic venous hypertension with ulcer and inflammation involving bilateral legs -continue CLD, questran. Creon started 07/12 - pt states she thinks questran causes diarrhea -consulted GI, recommend increased questran/creon dosing on 07/13 -stool studies negative for c diff, Lactoferrin, WBCs, positive for yeast - discussed with GI, no need to treat -pt has received multiple rounds of antibiotics in the last several months -ID consulted - recommend trial off antibiotics, urine culture: mixed todd -Diflucan 150mg on 07/15 for vaginal pruritus/discharge -continues with diarrhea, will add flagyl and probiotics for possible bacterial overgrowth -nephrology consulted for hemodialysis -continue home medications as appropriate -wound care consulted -f/u cultures Dispo: anticipate dc home in 48hrs if remains afebrile and symptoms improve Time Spent Managing Pts Care (In Minutes): 35
[2020-07-15] MEDS: ATORVASTATIN 40 MG TAB PO SCH (20:18)
[2020-07-16] MEDS: METRONIDAZOLE 250mg IVPB 250 MG/50 ML BAG IV SCH (00:34)
[2020-07-16] MEDS: HEPARIN 5000 UNIT/ML 1 ML VIAL SQ SCH ×3 (00:36→17:07)
[2020-07-16] MEDS: IPRATROPIUM BROM 0.5MG/2.5ML NEB SCH ×4 (02:00→20:00)
[2020-07-16] MEDS: ALBUTEROL 2.5 MG/3 ML NEB SOL NEB SCH ×4 (02:00→20:00)
[2020-07-16 06:20] LABS: Absolute Lymphocytes (CBC) 1.6 K/uL (0.7-4.9); Basophils % 0.9 % (0-1.3); Hematocrit 36.5 % (36.0-45.0); Lymphocytes % 32.7 % (15.3-44.8); MPV 7.4 fL (7.6-11.3); RBC Red Blood Cell Count 4.26 M/uL (3.86-4.86)
[2020-07-16 06:35] LABS: AST/SGOT 12 U/L (15-37); Albumin 2.5 g/dL (3.4-5.0); Alkaline Phosphatase 103 U/L (45-117); BUN Blood Urea Nitrogen 11 mg/dL (7-18); Bicarbonate 29 mmol/L (21-32); Bilirubin Total 0.4 mg/dL (0.2-1.0); C-Reactive Protein 3.21 mg/L (<3.00); Glucose Level 78 mg/dL (74-106); Magnesium 1.9 mg/dL (1.8-2.4); Phosphorus 2.5 mg/dL (2.5-4.9); Potassium 5.4 mmol/L (3.5-5.1); Protein, Total 6.8 g/dL (6.4-8.2); Sodium Level 133 mmol/L (136-145)
[2020-07-16 07:09] LABS: ALT/SGPT < 6 U/L (12-78)
[2020-07-16] MEDS: INSULIN -REGULAR HUMAN 50 UNIT/0.5 ML ML SQ SCH ×4 (07:30→21:00)
[2020-07-16] MEDS: BUDESONIDE 0.5 MG/2 ML NEB IH SCH ×2 (08:00→20:00)
[2020-07-16] MEDS: GABAPENTIN 100 MG CAP PO SCH ×3 (08:20→20:54)
[2020-07-16] MEDS: CHOLESTYRAMINE/ASP 4 GM/PKT PO SCH ×2 (08:20→17:07)
[2020-07-16] MEDS: lisinopriL 10 MG TAB PO SCH (08:21)
[2020-07-16] MEDS: carvediloL 6.25 MG TAB PO SCH ×2 (08:21→20:53)
[2020-07-16] MEDS: SEVELAMER CARBONATE 800 MG TABLET PO SCH ×3 (08:21→17:07)
[2020-07-16] MEDS: ASPIRIN 81 MG CHEWABLE TABLET PO SCH (08:22)
[2020-07-16] MEDS: SERTRALINE HCL 50 MG TAB PO SCH (08:22)
[2020-07-16] MEDS: LACTOBACILLUS/ACIDOPHILUS TAB PO SCH ×3 (08:22→20:53)
[2020-07-16] MEDS: FOLIC ACID 1 MG TABLET PO SCH (08:22)
[2020-07-16] MEDS: CLOPIDOGREL 75 MG TABLET PO SCH (08:22)
[2020-07-16] MEDS: LIPASE/PROTEASE/AMYLASE CAP PO SCH ×3 (08:23→17:08)
[2020-07-16] MEDS: HYDROCODONE/APAP 7.5/325 MG TAB PO PRN ×3 (08:29→21:02)
[2020-07-16] MEDS: metroNIDAZOLE 250 MG TABLET PO SCH ×3 (09:15→20:53)
--- NOTE | 2020-07-16 10:06 | P.PN ---
Subjective Date of Service: 07/16/20 Chief Complaint: Nausea and vomiting and diarrhea Subjective: No C/O voiced Physical Examination - Vital Signs Temperature: 96.8 F Blood Pressure: 160/74 Pulse: 55 Respirations: 18 Pulse Ox (%): 97 - Physical Exam General: In no apparent distress HEENT: Normocephalic Neck: Supple Respiratory: Normal air movement Cardiovascular: Regular rate/rhythm Gastrointestinal: Soft and benign Integumentary: Other (chronic non healing ulcer to lateral aspect of left foot) Neurological: Normal speech Assessment And Plan - Plan Consult with GI. Stool culture shows yeast, further stools studies pending. Continue to monitor labs Medical management per primary care team Monitor for signs and symptoms of infection Plan discussed with Dr. Gaytan Thank you for the consultation Physician Review Additional Text: Physical Exam General: NAD, AAOx3, appears fatigued HEENT: Sclerae anicteric, normal conjunctiva, dry mucous membranes Respiratory: Clear to auscultation bilaterally, Normal air movement CV: Regular rate/rhythm, Normal S1 S2 Abd: Soft and benign, Non-distended, No tenderness Ext: Bilateral venous stasis dermatitis, trace to 1+ pitting edema bilaterally Neuro: Normal speech, normal affect Problem list Intractable nausea and vomiting, and Diarrhea - likely secondary to autonomic vs diabetic neuropathy, gastroparesis vs bacterial overgrowth Chronic diastolic CHF Vaginal discharge CAD COPD Hypertension Chronic Lymphedema Chronic right pleural effusion Chronic venous hypertension with ulcer and inflammation involving bilateral legs -continue CLD, questran. Creon started 07/12 - pt states she thinks questran causes diarrhea -consulted GI, recommend increased questran/creon dosing on 07/13 -stool studies negative for c diff, Lactoferrin, WBCs, positive for yeast - discussed with GI, no need to treat -pt has received multiple rounds of antibiotics in the last several months -ID consulted - recommend trial off antibiotics, urine culture: mixed todd -Diflucan 150mg on 07/15 for vaginal pruritus/discharge -continues with diarrhea, will add flagyl and probiotics for possible bacterial overgrowth -nephrology consulted for hemodialysis -continue home medications as appropriate -wound care consulted -f/u cultures Dispo: anticipate dc home in 48hrs if remains afebrile and symptoms improve
--- NOTE | 2020-07-16 12:38 | PN ---
Date of Progress Note: 07/16/2020 Subjective: The patient was admitted with colitis. The patient seen by GI and ID. The patient was started on Flagyl. Still has diarrhea with dry heaves. Physical Examination: Vital Signs: Blood pressure 160/74, pulse of 55. Chest: Clear to auscultation. Heart: S1, S2. Regular. Systolic murmur. Abdomen: Soft, nontender. Extremity: Dressing on both legs. Neuro: Alert and oriented x3. No focal. Laboratory Data: WBC 4.8, H and H 11.7/36.5. Sodium 133, potassium 5.4, bicarb 29, BUN 11, creatinine 2.7, calcium of 8, phosphorus 2.5, magnesium of 1.9. Albumin is 2.5. Corrected calcium is 9.2. Current Medications: The patient on include; 1. Aspirin. 2. Flagyl. 3. Albuterol. 4. Epogen. 5. Plavix. 6. Carvedilol 6.25. 7. Lisinopril 10 daily. 8. Gabapentin. 9. Zoloft. 10. Renvela. 11. Insulin. Assessment And Plan: 1. End-stage renal disease. We will maintain the patient on dialysis. We will arrange for the patient for dialysis on Friday. 2. Hypertension, controlled, optimal. Continue current medication. 3. Hyperkalemia. No need for treatment. We will correct it with dialysis. 4. Hyponatremia, going to be corrected with dialysis. 5. Colitis. Follow up with primary. 6. Deconditioning. Continue PT, OT. Time spent discussing with the patient, examining the patient, [id number] with the patient, placing orders, discussing the case with our application development team lead including nursing, discussing the case with the other subspecialty including Cardiology and hospitalist 35 minutes. GAMA Voice ID: [id number] Report ID: [id number]
--- NOTE | 2020-07-16 14:42 | P.PN ---
Subjective Date of Service: 07/16/20 Chief Complaint: Nausea and vomiting and diarrhea Subjective: Improving (reports large BM yesterday, no BM overnight. no nausea/vomiting, dry heaving improved. holding liquids down. feels weak. no vaginal itchiness anymore, no abdominal pain) Review of Systems 10-point ROS is otherwise unremarkable Physical Examination - Vital Signs Temperature: 97 F Blood Pressure: 158/75 Pulse: 57 Respirations: 18 Pulse Ox (%): 94 Assessment & Plan Physician Review Additional Text: Physical Exam General: NAD, AAOx3, appears fatigued HEENT: Sclerae anicteric, normal conjunctiva, dry mucous membranes Respiratory: Clear to auscultation bilaterally, Normal air movement CV: Regular rate/rhythm, Normal S1 S2 Abd: Soft, nontender, nondistended Ext: Bilateral venous stasis dermatitis, trace to 1+ pitting edema bilaterally, wrapped Neuro: Normal speech, normal affect Problem list Intractable nausea and vomiting, and Diarrhea - likely secondary to autonomic vs diabetic neuropathy/ gastroparesis vs bacterial overgrowth Chronic diastolic CHF Vaginal discharge CAD COPD Hypertension Chronic Lymphedema Chronic right pleural effusion Chronic venous hypertension with ulcer and inflammation involving bilateral legs -continue questran. Creon started 07/12 - GI consulted, Dr. Sam recommended increasing questran/creon on 07/13 -pt without significant improvement -restarted Flagyl on 07/15, pt reports mild improvement overnight/this morning. Continue PO flagyl and probiotic for possible small bowel bacterial overgrowth -stool studies negative for c diff, Lactoferrin, WBCs, positive for yeast - discussed with GI, no need to treat -ID consulted - recommend trial off antibiotics, urine culture: mixed todd -Diflucan 150mg given on 07/15 for vaginal pruritus/discharge -dry heaving / nausea improved, advance to GI soft diet today -nephrology consulted for hemodialysis -continue home medications as appropriate -wound care consulted -f/u cultures - no growth Dispo: anticipate dc home in 24-48hrs if remains afebrile and symptoms improve Time Spent Managing Pts Care (In Minutes): 35
[2020-07-16] MEDS: ATORVASTATIN 40 MG TAB PO SCH (20:53)
[2020-07-16] MEDS: DIPHENHYDRAMINE 25 MG TAB/CAP PO PRN (21:03)
[2020-07-17] MEDS: HEPARIN 5000 UNIT/ML 1 ML VIAL SQ SCH (00:22)
[2020-07-17] MEDS: IPRATROPIUM BROM 0.5MG/2.5ML NEB SCH ×4 (02:00→20:00)
[2020-07-17] MEDS: ALBUTEROL 2.5 MG/3 ML NEB SOL NEB SCH ×4 (02:00→20:00)
[2020-07-17 04:17] LABS: AST/SGOT 8 U/L (15-37); Albumin 2.4 g/dL (3.4-5.0); Alkaline Phosphatase 100 U/L (45-117); BUN Blood Urea Nitrogen 15 mg/dL (7-18); Bicarbonate 29 mmol/L (21-32); Bilirubin Total 0.3 mg/dL (0.2-1.0); Glucose Level 117 mg/dL (74-106); Phosphorus 2.7 mg/dL (2.5-4.9); Potassium 4.9 mmol/L (3.5-5.1); Protein, Total 6.4 g/dL (6.4-8.2); Sodium Level 133 mmol/L (136-145)
[2020-07-17 04:18] LABS: ALT/SGPT < 6 U/L (12-78)
[2020-07-17] MEDS: INSULIN -REGULAR HUMAN 50 UNIT/0.5 ML ML SQ SCH ×4 (07:30→21:12)
[2020-07-17] MEDS: BUDESONIDE 0.5 MG/2 ML NEB IH SCH ×2 (08:00→20:00)
[2020-07-17] MEDS: metroNIDAZOLE 250 MG TABLET PO SCH ×3 (08:40→21:16)
[2020-07-17] MEDS: LIPASE/PROTEASE/AMYLASE CAP PO SCH ×3 (08:40→17:20)
[2020-07-17] MEDS: SEVELAMER CARBONATE 800 MG TABLET PO SCH ×3 (08:41→17:20)
[2020-07-17] MEDS: LACTOBACILLUS/ACIDOPHILUS TAB PO SCH ×3 (08:41→21:10)
[2020-07-17] MEDS: ASPIRIN 81 MG CHEWABLE TABLET PO SCH (08:41)
[2020-07-17] MEDS: GABAPENTIN 100 MG CAP PO SCH ×3 (08:41→21:10)
[2020-07-17] MEDS: FOLIC ACID 1 MG TABLET PO SCH (08:41)
[2020-07-17] MEDS: lisinopriL 10 MG TAB PO SCH (08:41)
[2020-07-17] MEDS: CHOLESTYRAMINE/ASP 4 GM/PKT PO SCH ×2 (08:41→17:20)
[2020-07-17] MEDS: CLOPIDOGREL 75 MG TABLET PO SCH (08:41)
[2020-07-17] MEDS: SERTRALINE HCL 50 MG TAB PO SCH (08:42)
[2020-07-17] MEDS: carvediloL 6.25 MG TAB PO SCH ×2 (08:43→21:11)
[2020-07-17] MEDS: HYDROCODONE/APAP 7.5/325 MG TAB PO PRN ×2 (10:14→19:22)
--- NOTE | 2020-07-17 14:18 | P.PN ---
Subjective Date of Service: 07/17/20 Chief Complaint: Nausea and vomiting and diarrhea Patient seen examined at bedside. Patient's denies episodes of diarrhea, states had abdominal this morning and was formed. She does state that she has been confused and states she has been seeing things. Continue to monitor closely. Recommend site/neuro consult. Review of Systems 10-point ROS is otherwise unremarkable Physical Examination - Vital Signs Temperature: 96.8 F Blood Pressure: 164/75 Pulse: 54 Respirations: 16 Pulse Ox (%): 97 - Studies Temp Pulse Resp BP Pulse Ox 96.8 F 54 16 164/75 H 97 07/17/20 12:00 07/17/20 12:00 07/17/20 12:00 07/17/20 12:00 07/17/20 12:00 Laboratory Last Values WBC 5.50 K/uL (4.3-10.9) 07/11/20 03:31 RBC 3.87 M/uL (3.86-4.86) 07/11/20 03:31 Hgb 10.8 g/dL (12.0-15.0) L 07/11/20 03:31 Hct 32.7 % (36.0-45.0) L 07/11/20 03:31 MCV 84.6 fL (80-100) 07/11/20 03:31 MCH 27.9 pg (27.0-35.0) 07/11/20 03:31 MCHC 33.0 g/dL (32.0-36.0) 07/11/20 03:31 RDW 17.8 % (12.1-15.2) H 07/11/20 03:31 Plt Count 211 K/uL (152-406) 07/11/20 03:31 MPV 7.0 fL (7.6-11.3) L 07/11/20 03:31 Neutrophils % 58.9 % (41.7-73.7) 07/11/20 03:31 Lymphocytes % 33.6 % (15.3-44.8) 07/11/20 03:31 Monocytes % 5.8 % (3.3-12.3) 07/11/20 03:31 Eosinophils % 0.9 % (0-4.4) 07/11/20 03:31 Basophils % 0.8 % (0-1.3) 07/11/20 03:31 Absolute Neutrophils 3.2 K/uL (1.8-8.0) 07/11/20 03:31 Absolute Lymphocytes 1.8 K/uL (0.7-4.9) 07/11/20 03:31 Absolute Monocytes 0.3 K/uL (0.1-1.3) 07/11/20 03:31 Absolute Eosinophils 0.0 K/uL (0-0.5) 07/11/20 03:31 Absolute Basophils 0.0 K/uL (0-0.5) 07/11/20 03:31 PT 15.2 SECONDS (9.5-12.5) H 07/10/20 15:45 INR 1.32 07/10/20 15:45 Sodium 131 mmol/L (136-145) L 07/11/20 03:31 Potassium 3.8 mmol/L (3.5-5.1) 07/11/20 03:31 Chloride 98 mmol/L (98-107) 07/11/20 03:31 Carbon Dioxide 24 mmol/L (21-32) 07/11/20 03:31 BUN 29 mg/dL (7-18) H 07/11/20 03:31 Creatinine 3.91 mg/dL (0.55-1.3) H 07/11/20 03:31 Estimated GFR 12 mL/min (=/>90) L 07/11/20 03:31 Glucose 121 mg/dL (74-106) H 07/11/20 03:31 POC Glucose 88 mg/dL (65-120) 07/11/20 19:44 Calcium 7.7 mg/dL (8.5-10.1) L 07/11/20 03:31 Phosphorus 4.9 mg/dL (2.5-4.9) 07/11/20 03:31 Magnesium 1.7 mg/dL (1.8-2.4) L 07/11/20 03:31 Total Bilirubin 0.5 mg/dL (0.2-1.0) 07/10/20 15:45 Direct Bilirubin 0.2 mg/dL (0-0.2) 07/10/20 15:45 AST 12 U/L (15-37) L 07/10/20 15:45 ALT 8 U/L (12-78) L 07/10/20 15:45 Alkaline Phosphatase 116 U/L (45-117) 07/10/20 15:45 Rapid Troponin I 0.04 ng/mL (0.0-0.045) 07/10/20 15:45 NT-Pro-B Natriuret Pep 20524 pg/mL (<125) H 07/10/20 15:45 Serum Total Protein 7.0 g/dL (6.4-8.2) 07/10/20 15:45 Albumin 2.6 g/dL (3.4-5.0) L 07/10/20 15:45 Globulin 4.4 g/dL (2.3-3.5) H 07/10/20 15:45 Albumin/Globulin Ratio 0.6 (1.1-1.8) L 07/10/20 15:45 Lipase 84 U/L (73-393) 07/10/20 15:45 TSH 6.180 uIU/mL (0.360-3.740) H 07/11/20 03:31 Free T4 1.04 ng/dL (0.76-1.46) 07/11/20 03:31 Urine Color Yellow (Yellow) 07/11/20 02:49 Urine Appearance Turbid (Clear) 07/11/20 02:49 Urine pH 5.5 (5.0-7.0) 07/11/20 02:49 Ur Specific [place] 1.010 (1.005-1.030) 07/11/20 02:49 Glucose (UA)(Auto) Negative (Negative) 07/11/20 02:49 Urine Ketones Negative (Negative) 07/11/20 02:49 Urine Blood 2+ (Negative) H 07/11/20 02:49 Urine Nitrite Negative (Negative) 07/11/20 02:49 Urine Bilirubin Negative (Negataive) 07/11/20 02:49 Urine Urobilinogen 0.2 mg/dL (0.2-1.0) 07/11/20 02:49 Ur Leukocyte Esterase 3+ (Negative) H 07/11/20 02:49 Urine RBC <5 /HPF (NONE SEEN) 07/11/20 02:49 Urine WBC >50 /HPF (<5) H 07/11/20 02:49 Ur Squamous Epith Cells <5 /HPF (NONE SEEN) 07/11/20 02:49 Ur Urothelial Cells <5 /HPF (NONE SEEN) 07/11/20 02:49 Urine Bacteria 20-50 /HPF (<20) H 07/11/20 02:49 Urine Culture Reflexed Reflexed 07/11/20 02:49 Urine Total Protein 2+ (Negative) H 07/11/20 02:49 C. difficile Ag & Toxin Ag neg : tox neg (NEG : NEG) 07/11/20 15:00 Hep Bs Antigen Nonreactive (Nonreactive) 07/11/20 03:31 Hep Bs Antibody Nonreactive (Nonreactive) 07/11/20 03:31 Hep B Core Total Ab Nonreactive (Nonreactive) 07/11/20 03:31 Hepatitis C Antibody Nonreactive (Nonreactive) 07/11/20 03:31 Hep C Ab Signal/Cutoff 0.10 ratio (<1.00) 07/11/20 03:31 SARS-CoV-2 RNA (RT-PCR) Negative (NEGATIVE) 07/10/20 15:45 Assessment And Plan - Plan Physical exam: General: No acute distress. Patient alert oriented. HEENT: Unremarkable. Neck: Supple. Lungs: Basal crackles, right more than left. Heart: S1, S2. Regular. Abdomen: Soft, nontender. Bowel sounds present. Extremity: Trace edema. Multiple small wounds noted on the feet and left leg. One wound was noted around the mid spangler area. Assessment: 1. Diarrhea 2. Multiple small wound wounds to bilateral feet and left leg 3. Protein calorie malnourished Plan: 1. Fecal white blood cells negative, fecal culture sensitivity negative for Shigella/Salmonella/Campylobacter species. There was some yeast in the stool. Pending ova and parasite results. Continue digestive enzymes, probiotic, and Questran. Antibiotics have been stopped this time. Continue monitor for signs of infection. 2. Continue wound care per wound care treatment. 3. Recommend increase the protein-ensure supplemental shakes. -medical management per primary team -continue monitor CBC and BMP -continue monitor for signs infection Plan of care discussed with Dr. Gaytan Thank you for consultation.
--- NOTE | 2020-07-17 17:15 | P.PN ---
Subjective Date of Service: 07/17/20 Chief Complaint: Nausea and vomiting and diarrhea Subjective: Improving (slight improvement. pt reports somewhat more formed stool this morning, no nausea/vomiting, slight abdominal pain) Review of Systems 10-point ROS is otherwise unremarkable Physical Examination - Vital Signs Temperature: 97.3 F Blood Pressure: 166/82 Pulse: 55 Respirations: 16 Pulse Ox (%): 98 Assessment & Plan Physician Review Additional Text: Physical Exam General: NAD, AAOx3 HEENT: Sclerae anicteric, normal conjunctiva, dry mucous membranes Respiratory: Clear to auscultation bilaterally, Normal air movement CV: Regular rate/rhythm, Normal S1 S2 Abd: Soft, nontender, mild distention Ext: Bilateral venous stasis dermatitis, trace to 1+ pitting edema bilaterally, wrapped Neuro: Normal speech, normal affect Problem list Intractable nausea and vomiting, and Diarrhea - likely secondary to autonomic vs diabetic neuropathy/ gastroparesis vs bacterial overgrowth Chronic diastolic CHF Vaginal discharge CAD COPD Hypertension Chronic Lymphedema Chronic right pleural effusion Chronic venous hypertension with ulcer and inflammation involving bilateral legs -continue questran. Creon started 07/12 - GI consulted, Dr. Sam recommended increasing questran/creon on 07/13 -restarted Flagyl on 07/15, pt reports mild improvement overnight/this morning. Continue PO flagyl and probiotic for possible small bowel bacterial overgrowth -stool studies negative for c diff, Lactoferrin, WBCs, positive for yeast - discussed with GI, no need to treat -very mild improvement this morning -ID consulted - recommend trial off antibiotics, urine culture: mixed todd -Diflucan 150mg given on 07/15 for vaginal pruritus/discharge -nephrology consulted for hemodialysis -continue home medications as appropriate -wound care consulted -f/u cultures - no growth Dispo: anticipate dc home in 24hrs. Patient to eat Gi soft / low residue diet today, monitor for diarrhea and nausea/vomiting if improves, possible dc tomorrow Time Spent Managing Pts Care (In Minutes): 35
[2020-07-17] MEDS: DIPHENHYDRAMINE 25 MG TAB/CAP PO PRN (19:23)
[2020-07-17] MEDS: ATORVASTATIN 40 MG TAB PO SCH (21:00)
--- NOTE | 2020-07-17 21:44 | PN ---
Date of Progress Note: 07/17/2020 Chief Complaint: End-stage renal disease, congestive heart failure with systolic dysfunction, fluid overload. History Of Present Illness: The patient is admitted for abdominal pain. She was found to have colit is. The patient is on Flagyl and she denies diarrhea today. Denies melena or hematemesis. Review of Systems: Denies fever or chills. Physical Examination: Lungs: Diminished breath sounds at bases. Heart: S1, S2. Abdomen: Soft, benign. Extremities: Edema present in both legs. Impression And Plan: 1.End-stage renal disease. Next dialysis tomorrow. 2.Hyperkalemia. The patient received dialysis. Potassium level has improved. 3.Hyponatremia, dilutional. Continue p.o. fluid restriction and low-sodium diet. 4.Hypoalbuminemia. Continue high protein intake. 5.Renal osteodystrophy. Monitor phosphorus level. Currently, the patient does not require binders. Phosphorus level is 2.7. EB/MODL Voice ID: [id number] Report ID: [id number]
[2020-07-18] MEDS: HYDROCODONE/APAP 7.5/325 MG TAB PO PRN ×4 (01:20→21:10)
[2020-07-18] MEDS: DIPHENHYDRAMINE 25 MG TAB/CAP PO PRN ×4 (01:24→21:11)
[2020-07-18] MEDS: ALBUTEROL 2.5 MG/3 ML NEB SOL NEB SCH ×4 (02:00→20:00)
[2020-07-18] MEDS: IPRATROPIUM BROM 0.5MG/2.5ML NEB SCH ×4 (02:00→20:00)
[2020-07-18 04:00] LABS: Absolute Lymphocytes (CBC) 2.1 K/uL (0.7-4.9); Hematocrit 34.6 % (36.0-45.0); Lymphocytes % 37.5 % (15.3-44.8); RBC Red Blood Cell Count 3.96 M/uL (3.86-4.86)
[2020-07-18 04:08] LABS: Magnesium 2.1 mg/dL (1.8-2.4)
[2020-07-18 04:14] LABS: Potassium 5.6 mmol/L (3.5-5.1)
[2020-07-18] MEDS ORDERED: SOD POLYSTYREN SUL 15 GM/60 ML UCUP PO ONE (05:16)
[2020-07-18] MEDS: INSULIN -REGULAR HUMAN 50 UNIT/0.5 ML ML SQ SCH ×4 (07:30→21:15)
[2020-07-18] MEDS: BUDESONIDE 0.5 MG/2 ML NEB IH SCH ×2 (08:00→20:00)
[2020-07-18] MEDS: GABAPENTIN 100 MG CAP PO SCH ×4 (08:39→21:10)
[2020-07-18] MEDS: LACTOBACILLUS/ACIDOPHILUS TAB PO SCH ×4 (08:39→21:10)
[2020-07-18] MEDS: CLOPIDOGREL 75 MG TABLET PO SCH (08:39)
[2020-07-18] MEDS: lisinopriL 10 MG TAB PO SCH (08:41)
[2020-07-18] MEDS: ASPIRIN 81 MG CHEWABLE TABLET PO SCH (08:41)
[2020-07-18] MEDS: FOLIC ACID 1 MG TABLET PO SCH (08:41)
[2020-07-18] MEDS: CHOLESTYRAMINE/ASP 4 GM/PKT PO SCH ×2 (08:41→17:19)
[2020-07-18] MEDS: carvediloL 6.25 MG TAB PO SCH ×2 (08:41→21:09)
[2020-07-18] MEDS: metroNIDAZOLE 250 MG TABLET PO SCH ×4 (08:42→21:14)
[2020-07-18] MEDS: LIPASE/PROTEASE/AMYLASE CAP PO SCH ×3 (08:42→17:18)
[2020-07-18] MEDS: SEVELAMER CARBONATE 800 MG TABLET PO SCH ×3 (08:42→17:18)
[2020-07-18] MEDS: SERTRALINE HCL 50 MG TAB PO SCH (08:42)
[2020-07-18] MEDS: MEDIHONEY 44 ML TOPICAL TUBE TOP SCH (08:43)
--- NOTE | 2020-07-18 09:58 | P.PN ---
Subjective Date of Service: 07/18/20 Chief Complaint: Nausea and vomiting and diarrhea Reports diarrhea not improved. Had loose stools today. Physical Examination - Vital Signs Temperature: 97.8 F Blood Pressure: 166/75 Pulse: 55 Respirations: 16 Pulse Ox (%): 98 Assessment And Plan - Plan # ESRD on HD TTS Received HD today Renal vitamin daily Renal diet Monitor renal panel # Gastroenteritis Hx of gastric surgery Diarrhea improved On creon + questran Cont flagyl po tid x 2 wks trial for ? SIBO # Anemia Cont BRONWYN # HyperPO4 Cont renvela HD as above # Htn BP above goal Cont coreg same dose Inc lisinopril dose to 20 mg po daily
--- NOTE | 2020-07-18 10:09 | P.PN ---
Subjective Date of Service: 07/18/20 Chief Complaint: Nausea and vomiting and diarrhea Patient seen examined at bedside. States she is having some general malaise and overall weakness/muscle aches. States diarrhea has subsided. Patient remains afebrile. Continue Flagyl at this time. Review of Systems 10-point ROS is otherwise unremarkable Physical Examination - Vital Signs Temperature: 97.8 F Blood Pressure: 166/75 Pulse: 55 Respirations: 16 Pulse Ox (%): 98 - Studies Laboratory Last Values WBC 5.50 K/uL (4.3-10.9) 07/11/20 03:31 RBC 3.87 M/uL (3.86-4.86) 07/11/20 03:31 Hgb 10.8 g/dL (12.0-15.0) L 07/11/20 03:31 Hct 32.7 % (36.0-45.0) L 07/11/20 03:31 MCV 84.6 fL (80-100) 07/11/20 03:31 MCH 27.9 pg (27.0-35.0) 07/11/20 03:31 MCHC 33.0 g/dL (32.0-36.0) 07/11/20 03:31 RDW 17.8 % (12.1-15.2) H 07/11/20 03:31 Plt Count 211 K/uL (152-406) 07/11/20 03:31 MPV 7.0 fL (7.6-11.3) L 07/11/20 03:31 Neutrophils % 58.9 % (41.7-73.7) 07/11/20 03:31 Lymphocytes % 33.6 % (15.3-44.8) 07/11/20 03:31 Monocytes % 5.8 % (3.3-12.3) 07/11/20 03:31 Eosinophils % 0.9 % (0-4.4) 07/11/20 03:31 Basophils % 0.8 % (0-1.3) 07/11/20 03:31 Absolute Neutrophils 3.2 K/uL (1.8-8.0) 07/11/20 03:31 Absolute Lymphocytes 1.8 K/uL (0.7-4.9) 07/11/20 03:31 Absolute Monocytes 0.3 K/uL (0.1-1.3) 07/11/20 03:31 Absolute Eosinophils 0.0 K/uL (0-0.5) 07/11/20 03:31 Absolute Basophils 0.0 K/uL (0-0.5) 07/11/20 03:31 PT 15.2 SECONDS (9.5-12.5) H 07/10/20 15:45 INR 1.32 07/10/20 15:45 Sodium 131 mmol/L (136-145) L 07/11/20 03:31 Potassium 3.8 mmol/L (3.5-5.1) 07/11/20 03:31 Chloride 98 mmol/L (98-107) 07/11/20 03:31 Carbon Dioxide 24 mmol/L (21-32) 07/11/20 03:31 BUN 29 mg/dL (7-18) H 07/11/20 03:31 Creatinine 3.91 mg/dL (0.55-1.3) H 07/11/20 03:31 Estimated GFR 12 mL/min (=/>90) L 07/11/20 03:31 Glucose 121 mg/dL (74-106) H 07/11/20 03:31 POC Glucose 88 mg/dL (65-120) 07/11/20 19:44 Calcium 7.7 mg/dL (8.5-10.1) L 07/11/20 03:31 Phosphorus 4.9 mg/dL (2.5-4.9) 07/11/20 03:31 Magnesium 1.7 mg/dL (1.8-2.4) L 07/11/20 03:31 Total Bilirubin 0.5 mg/dL (0.2-1.0) 07/10/20 15:45 Direct Bilirubin 0.2 mg/dL (0-0.2) 07/10/20 15:45 AST 12 U/L (15-37) L 07/10/20 15:45 ALT 8 U/L (12-78) L 07/10/20 15:45 Alkaline Phosphatase 116 U/L (45-117) 07/10/20 15:45 Rapid Troponin I 0.04 ng/mL (0.0-0.045) 07/10/20 15:45 NT-Pro-B Natriuret Pep 29771 pg/mL (<125) H 07/10/20 15:45 Serum Total Protein 7.0 g/dL (6.4-8.2) 07/10/20 15:45 Albumin 2.6 g/dL (3.4-5.0) L 07/10/20 15:45 Globulin 4.4 g/dL (2.3-3.5) H 07/10/20 15:45 Albumin/Globulin Ratio 0.6 (1.1-1.8) L 07/10/20 15:45 Lipase 84 U/L (73-393) 07/10/20 15:45 TSH 6.180 uIU/mL (0.360-3.740) H 07/11/20 03:31 Free T4 1.04 ng/dL (0.76-1.46) 07/11/20 03:31 Urine Color Yellow (Yellow) 07/11/20 02:49 Urine Appearance Turbid (Clear) 07/11/20 02:49 Urine pH 5.5 (5.0-7.0) 07/11/20 02:49 Ur Specific [place] 1.010 (1.005-1.030) 07/11/20 02:49 Glucose (UA)(Auto) Negative (Negative) 07/11/20 02:49 Urine Ketones Negative (Negative) 07/11/20 02:49 Urine Blood 2+ (Negative) H 07/11/20 02:49 Urine Nitrite Negative (Negative) 07/11/20 02:49 Urine Bilirubin Negative (Negataive) 07/11/20 02:49 Urine Urobilinogen 0.2 mg/dL (0.2-1.0) 07/11/20 02:49 Ur Leukocyte Esterase 3+ (Negative) H 07/11/20 02:49 Urine RBC <5 /HPF (NONE SEEN) 07/11/20 02:49 Urine WBC >50 /HPF (<5) H 07/11/20 02:49 Ur Squamous Epith Cells <5 /HPF (NONE SEEN) 07/11/20 02:49 Ur Urothelial Cells <5 /HPF (NONE SEEN) 07/11/20 02:49 Urine Bacteria 20-50 /HPF (<20) H 07/11/20 02:49 Urine Culture Reflexed Reflexed 07/11/20 02:49 Urine Total Protein 2+ (Negative) H 07/11/20 02:49 C. difficile Ag & Toxin Ag neg : tox neg (NEG : NEG) 07/11/20 15:00 Hep Bs Antigen Nonreactive (Nonreactive) 07/11/20 03:31 Hep Bs Antibody Nonreactive (Nonreactive) 07/11/20 03:31 Hep B Core Total Ab Nonreactive (Nonreactive) 07/11/20 03:31 Hepatitis C Antibody Nonreactive (Nonreactive) 07/11/20 03:31 Hep C Ab Signal/Cutoff 0.10 ratio (<1.00) 07/11/20 03:31 SARS-CoV-2 RNA (RT-PCR) Negative (NEGATIVE) 07/10/20 15:45 Temp Pulse Resp BP Pulse Ox 97.8 F 55 16 166/75 H 98 07/18/20 09:58 07/18/20 09:58 07/18/20 09:58 07/18/20 09:58 07/18/20 09:58 Assessment And Plan - Plan Physical exam: General: No acute distress. Patient alert oriented. HEENT: Unremarkable. Neck: Supple. Lungs: Basal crackles, right more than left. Heart: S1, S2. Regular. Abdomen: Soft, nontender. Bowel sounds present. Extremity: Trace edema. Multiple small wounds noted on the feet and left leg. One wound was noted around the mid spangler area. Assessment: 1. Diarrhea 2. Multiple small wound wounds to bilateral feet and left leg 3. Protein calorie malnourished Plan: 1. Fecal white blood cells negative, fecal culture sensitivity negative for Shigella/Salmonella/Campylobacter species. There was some yeast in the stool. Pending ova and parasite results. Continue digestive enzymes, probiotic, Questran, and Flagyl. Antibiotics have been stopped this time. Continue monitor for signs of infection. 2. Continue wound care per wound care treatment. 3. Recommend increase the protein-ensure supplemental shakes. -medical management per primary team -continue monitor CBC and BMP -continue monitor for signs infection Plan of care discussed with Dr. Gaytan Thank you for consultation.
--- NOTE | 2020-07-18 18:41 | P.PN ---
Subjective Date of Service: 07/18/20 Chief Complaint: Nausea and vomiting and diarrhea Patient seen after dialysis today. She is tolerating soft diet. She states the diarrhea has improved significantly. Stool consistent in no more watery but soft. Physical Examination - Vital Signs Temperature: 96.9 F Blood Pressure: 160/82 Pulse: 63 Respirations: 15 Pulse Ox (%): 98 - Physical Exam General: Alert, In no apparent distress, Oriented x3 HEENT: Mucous membr. moist/pink Neck: JVD not distended Respiratory: Clear to auscultation bilaterally, Normal air movement Cardiovascular: Regular rate/rhythm, Edema (Bilateral lower extremities) Gastrointestinal: Normal bowel sounds, Soft and benign, No tenderness Musculoskeletal: Other (Bilateral lower extremity lymphedema) Integumentary: Other (Lower extremity venostasis ulcers and dermatitis) Neurological: Normal strength at 5/5 x4 extr Assessment And Plan - Current Problems (Diagnosis) (1) Intractable nausea and vomiting Current Visit: Yes Status: Acute (2) Hypertension Current Visit: No Status: Chronic Qualifiers: Hypertension type: essential hypertension Qualified Code(s): I10 - Essential (primary) hypertension (3) Lymphedema Current Visit: No Status: Chronic (4) Pleural effusion Onset Date: 04/28/15 Current Visit: No Status: Resolved (5) Ulcer of toe of left foot Onset Date: 01/07/14 Current Visit: No Status: Resolved (6) Chronic venous hypertension with ulcer and inflammation involving right side Current Visit: No Status: Ruled-out (7) Chronic diastolic heart failure Current Visit: No Status: Acute (8) CAD (coronary artery disease) Onset Date: 10/03/17 Current Visit: No Status: Chronic Qualifiers: (9) COPD (chronic obstructive pulmonary disease) Onset Date: 02/04/17 Current Visit: No Status: Chronic Qualifiers: COPD type: chronic bronchitis (10) Diarrhea Current Visit: Yes Status: Acute Physician Review Additional Text: Problem list Intractable nausea and vomiting, and Diarrhea - likely secondary to autonomic vs diabetic neuropathy/ gastroparesis vs bacterial overgrowth Chronic diastolic CHF Vaginal discharge CAD COPD Hypertension Chronic Lymphedema Chronic right pleural effusion Chronic venous hypertension with ulcer and inflammation involving bilateral legs -continue questran and Creon (started 07/12)- patient seen by GI-Dr. aSm recommended increasing questran/creon on 07/13 -Flagyl restarted on 07/15. Continue PO flagyl and probiotic for possible small bowel bacterial overgrowth. Diarrhea has significantly improved. -stool studies negative for c diff, Lactoferrin, WBCs, positive for yeast. No need to treat for yeast infection per GI -ID is following -Diflucan 150mg given on 07/15 for vaginal pruritus/discharge -nephrology following for hemodialysis -continue home medications as appropriate -wound care managing multiple lower extremities ulcers. -cultures - no growth Dispo: Advanced diet as tolerated. Possible discharge in am.
[2020-07-18] MEDS: ATORVASTATIN 40 MG TAB PO SCH (21:00)
[2020-07-18] MEDS ORDERED: lisinopriL 10 MG TAB PO ONE (23:25)
[2020-07-19] MEDS: IPRATROPIUM BROM 0.5MG/2.5ML NEB SCH ×3 (02:00→14:00)
[2020-07-19] MEDS: ALBUTEROL 2.5 MG/3 ML NEB SOL NEB SCH ×3 (02:00→14:00)
[2020-07-19] MEDS: DIPHENHYDRAMINE 25 MG TAB/CAP PO PRN (04:40)
[2020-07-19] MEDS: HYDROCODONE/APAP 7.5/325 MG TAB PO PRN ×2 (04:40→10:03)
[2020-07-19] MEDS: INSULIN -REGULAR HUMAN 50 UNIT/0.5 ML ML SQ SCH ×2 (07:30→13:06)
[2020-07-19] MEDS: BUDESONIDE 0.5 MG/2 ML NEB IH SCH (08:00)
[2020-07-19] MEDS ORDERED: lisinopriL 10 MG TAB PO SCH (09:00)
[2020-07-19 09:34] VITALS: O2SAT 97
[2020-07-19] MEDS: SEVELAMER CARBONATE 800 MG TABLET PO SCH ×2 (10:02→13:46)
[2020-07-19] MEDS: LACTOBACILLUS/ACIDOPHILUS TAB PO SCH ×2 (10:02→13:35)
[2020-07-19] MEDS: FOLIC ACID 1 MG TABLET PO SCH (10:02)
[2020-07-19] MEDS: GABAPENTIN 100 MG CAP PO SCH ×2 (10:02→13:30)
[2020-07-19] MEDS: ASPIRIN 81 MG CHEWABLE TABLET PO SCH (10:03)
[2020-07-19] MEDS: CLOPIDOGREL 75 MG TABLET PO SCH (10:04)
[2020-07-19] MEDS: SERTRALINE HCL 50 MG TAB PO SCH (10:05)
[2020-07-19] MEDS: LIPASE/PROTEASE/AMYLASE CAP PO SCH ×2 (10:05→12:00)
[2020-07-19] MEDS: carvediloL 6.25 MG TAB PO SCH (10:06)
[2020-07-19] MEDS: metroNIDAZOLE 250 MG TABLET PO SCH ×2 (10:06→13:30)
[2020-07-19] MEDS: CHOLESTYRAMINE/ASP 4 GM/PKT PO SCH (10:07)
--- NOTE | 2020-07-19 11:11 | P.DS ---
Admission Date: 07/11/20 Discharge Date: 07/19/20 Disposition: [facility]/HOME HEALTH CARE Discharge Condition: FAIR Reason for Admission: Nausea and vomiting and diarrhea - Problems (1) Intractable nausea and vomiting Current Visit: Yes Status: Acute (2) Hypertension Current Visit: No Status: Chronic Qualifiers: Hypertension type: essential hypertension Qualified Code(s): I10 - Essential (primary) hypertension (3) Lymphedema Current Visit: No Status: Chronic (4) Pleural effusion Onset Date: 04/28/15 Current Visit: No Status: Resolved (5) Ulcer of toe of left foot Onset Date: 01/07/14 Current Visit: No Status: Resolved (6) Chronic venous hypertension with ulcer and inflammation involving right side Current Visit: No Status: Ruled-out (7) Chronic diastolic heart failure Current Visit: No Status: Acute (8) CAD (coronary artery disease) Onset Date: 10/03/17 Current Visit: No Status: Chronic Qualifiers: (9) COPD (chronic obstructive pulmonary disease) Onset Date: 02/04/17 Current Visit: No Status: Chronic Qualifiers: COPD type: chronic bronchitis (10) Diarrhea Current Visit: Yes Status: Acute Brief History of Present Illness: 65-year-old woman with a history of diabetes mellitus type 2, end-stage renal disease on hemodialysis, chronic lymphedema, chronic pleural effusion, chronic diabetic foot ulcer, recurrent hospitalizations and multiple ED visits presented to the emergency department with a complaint of nausea and vomiting and diarrhea which has been present for about 1 week. Was in the emergency department 2 days ago with similar complain. Patient was given IV fluids, pain medications and antiemetics and then discharged from the ED. Her symptoms got worse, with frequent diarrhea, not able to hold any food or drink in without vomiting. Patient presented to the emergency department with again for further evaluation. Hospital Course: Patient admitted to the medical floor and started IV antibiotics-Flagyl. -stool studies negative for c diff, Lactoferrin, WBCs, positive for yeast. -GI consulted, patient seen by Dr. Sam, and treated with Questran and Creo n. No need to treat for yeast infection per GI. -patient seen by infectious disease, antibiotics discontinued briefly. -oral Flagyl restarted, along with probiotics for possible small bowel bacterial overgrowth. Diarrhea significantly improved with treatment. -Diflucan 150mg given on 4/17 for vaginal pruritus/discharge -nephrology followed and managed hemodialysis -continued her other home medications. -wound care team managed her multiple lower extremities ulcers. -blood cultures - no growth. -patient overall clinically improved and deemed stable for discharge. -she is prescribed oral Flagyl to complete at least 3 weeks of treatment. Vital Signs/Physical Exam: Temp Pulse Resp BP Pulse Ox 97.8 F 60 18 162/74 H 96 07/19/20 08:00 07/19/20 10:06 07/19/20 10:03 07/19/20 10:06 07/19/20 10:03 General: Alert, In no apparent distress, Oriented x3 HEENT: Mucous membr. moist/pink Neck: Supple Respiratory: Clear to auscultation bilaterally, Normal air movement Cardiovascular: Regular rate/rhythm, Normal S1 S2, Edema (Bilateral lower extremities) Gastrointestinal: Soft and benign, No tenderness Musculoskeletal: Other (Bilateral lower extremity lymphedema-improved.) Integumentary: Other (Bilateral lower extremity venostasis ulcers.) Neurological: Other (No focal motor deficit.) Laboratory Data at Discharge: WBC 5.50 K/uL (4.3-10.9) D 07/18/20 03:18 Hgb 10.6 g/dL (12.0-15.0) L 07/18/20 03:18 Hct 34.6 % (36.0-45.0) L 07/18/20 03:18 Plt Count 140 K/uL (152-406) L 07/18/20 03:18 PT 15.2 SECONDS (9.5-12.5) H 07/10/20 15:45 INR 1.32 07/10/20 15:45 Sodium 133 mmol/L (136-145) L 07/18/20 03:18 Potassium 5.6 mmol/L (3.5-5.1) H* 07/18/20 03:18 BUN 19 mg/dL (7-18) H 07/18/20 03:18 Creatinine 3.28 mg/dL (0.55-1.3) H 07/18/20 03:18 Glucose 78 mg/dL (74-106) 07/18/20 03:18 Phosphorus 2.7 mg/dL (2.5-4.9) 07/17/20 03:26 Magnesium 2.1 mg/dL (1.8-2.4) 07/18/20 03:18 Total Bilirubin 0.3 mg/dL (0.2-1.0) 07/17/20 03:26 AST 8 U/L (15-37) L 07/17/20 03:26 ALT < 6 U/L (12-78) L 07/17/20 03:26 Alkaline Phosphatase 100 U/L (45-117) 07/17/20 03:26 Lipase 84 U/L (73-393) 07/10/20 15:45 Home Medications: Allopurinol 100 mg PO BID 06/13/20 Aspirin 81 mg PO DAILY 06/13/20 Atorvastatin Calcium [Lipitor] 40 mg PO BEDTIME 06/13/20 Clopidogrel Bisulfate [Plavix*] 75 mg PO DAILY 06/13/20 Fluticasone [Flovent Hfa 110*] 2 puff IN DAILY 06/13/20 Hydralazine [Apresoline*] 25 mg PO TID 06/13/20 carvediloL [Carvedilol] 6.25 mg PO BID 06/13/20 lisinopriL [Prinivil*] 5 mg PO DAILY 06/13/20 Cholestyramine (with Sugar) [Cholestyramine Packet] 1 packet PO DAILY PRN 06/14/20 Furosemide [Lasix*] 2 tab PO BID 06/14/20 Gabapentin [Neurontin*] 200 mg PO TID 06/14/20 Sertraline HCl 25 mg PO DAILY 06/14/20 Dicyclomine HCl 20 mg PO Q6HP PRN 07/11/20 Ondansetron [Ondansetron Odt] 4 mg PO Q4HP PRN 07/11/20 Epoetin [Retacrit] 4,000 unit IV EVERY HD vial 07/19/20 Heparin [Heparin 1,000 units/mL *] 6,000 unit IV EVERY HD PRN vial 07/19/20 Lactobacillus Acidophilus [Acidophilus] 1 each PO TID #90 capsule 07/19/20 Lipase/Protease/Amylase [Heather Turpin 12,000 Units Capsule] 3 cap PO TIDWM #270 cap 07/19/20 Medihoney [Medihoney Woundcare Gel*] 1 appl TOP TuThSa@0900 #1 tube 07/19/20 Sevelamer Carbonate [Renvela*] 800 mg PO TIDWM #90 tablet 07/19/20 metroNIDAZOLE [Flagyl*] 250 mg PO TID #42 tablet 07/19/20 New Medications: Lactobacillus Acidophilus [Acidophilus] 1 each PO TID #90 capsule Lipase/Protease/Amylase [Heather Turpin 12,000 Units Capsule] 3 cap PO TIDWM #270 cap metroNIDAZOLE [Flagyl*] 250 mg PO TID #42 tablet Medihoney [Medihoney Woundcare Gel*] 1 appl TOP TuThSa@0900 #1 tube Sevelamer Carbonate [Renvela*] 800 mg PO TIDWM #90 tablet Diet: ADA Activity: Ad shira Followup: NONE,NONE [Primary Care Provider] - 1-2 Weeks Time spent managing pt's care (in minutes): 35
[2020-07-19 12:25] VITALS: BP 159/70; TEMP 96.9
[2020-07-19] MEDS: DICYCLOMINE HCL 10 MG CAP PO PRN (13:46)
--- NOTE | 2020-07-19 14:05 | PN ---
Date of Progress Note: 07/19/2020 Subjective: The patient was admitted with gastroenteritis, colitis. The patient was treated with Fl agyl. The patient's diarrhea has been subsided. Physical Examination: Vital Signs: Blood pressure 157/70, pulse of 57, afebrile. Chest: Clear to auscultation. Heart: S1, S2. Systolic murmur. Abdomen: Soft, nontender. Extremities: Dressing on both legs, compression dressing. Laboratory Data: H and H 10.6/34.6. Sodium 133, potassium 5.6, bicarb 31, BUN 19, creatinine 3.2, c alcium 7.2. Assessment And Plan: 1.End-stage renal disease. We will continue the patient on dialysis TTS. The patient cleared from the Renal standpoint for discharge planning. 2.Hypertension, controlled, optimal. Continue current treatment. 3.Hyperkalemia, corrected with dialysis. 4.Colitis. Follow up with primary. GAMA Voice ID: [id number] Report ID: [id number]
--- NOTE | 2020-07-19 14:52 | P.PN ---
Subjective Date of Service: 07/19/20 Chief Complaint: Nausea and vomiting and diarrhea Patient seen examined at bedside. Low platelet count-monitor. Review of Systems 10-point ROS is otherwise unremarkable Physical Examination - Vital Signs Temperature: 96.9 F Blood Pressure: 159/70 Pulse: 57 Respirations: 14 Pulse Ox (%): 97 - Studies Temp Pulse Resp BP Pulse Ox 96.9 F 57 14 159/70 H 97 07/19/20 12:00 07/19/20 12:00 07/19/20 12:00 07/19/20 12:00 07/19/20 12:00 Active Medications Acetaminophen (Acetaminophen 500 Mg Tab) 500 mg PO Q4HP PRN PRN Reason: TEMP > 100' F Hydrocodone Bitart/Acetaminophen (Hydrocodone/Apap 7.5/325 Mg Tab) 1 tab PO Q6H PRN PRN Reason: Pain scale 5-7 (Moderate) Last Admin: 07/19/20 10:03 Dose: 1 tab Documented by: Albuterol Sulfate (Albuterol 2.5 Mg/3 Ml Neb Irene) 2.5 mg NEB [id number] [facility] Last Admin: 07/19/20 14:00 Dose: Not Given Documented by: Lipase/Protease/Amylase (Lipase/Protease/Amylase Cap) 3 cap PO TIDWM [facility] Last Admin: 07/19/20 12:00 Dose: 3 cap Documented by: Aspirin (Aspirin 81 Mg Chewable Tablet) 81 mg PO DAILY [facility] Last Admin: 07/19/20 10:03 Dose: 81 mg Documented by: Atorvastatin Calcium (Atorvastatin 40 Mg Tab) 40 mg PO BEDTIME [facility] Last Admin: 07/18/20 21:00 Dose: 40 mg Documented by: Budesonide (Budesonide 0.5 Mg/2 Ml Neb) 0.5 mg IH BIDRESP [facility] Last Admin: 07/19/20 08:00 Dose: Not Given Documented by: Carvedilol (Carvedilol 6.25 Mg Tab) 6.25 mg PO BID [facility] Last Admin: 07/19/20 10:06 Dose: 6.25 mg Documented by: Cholestyramine Resin (Cholestyramine/Asp 4 Gm/Pkt) 4 gm PO BIDWM [facility] Last Admin: 07/19/20 10:07 Dose: 4 gm Documented by: Clopidogrel Bisulfate (Clopidogrel 75 Mg Tablet) 75 mg PO DAILY [facility] Last Admin: 07/19/20 10:04 Dose: 75 mg Documented by: Dicyclomine HCl (Dicyclomine Hcl 10 Mg Cap) 20 mg PO Q6HP PRN PRN Reason: DIARRHEA Last Admin: 07/19/20 13:46 Dose: 20 mg Documented by: Diphenhydramine HCl (Diphenhydramine 25 Mg Tab/Cap) 25 mg PO Q6H PRN PRN Reason: ITCHING Last Admin: 07/19/20 04:40 Dose: 25 mg Documented by: Emollient Gel (Medihoney 44 Ml Topical Tube) 1 appl TOP TuThSa@0900 [facility] Last Admin: 07/18/20 08:43 Dose: Not Given Documented by: Epoetin Delfino (Epoetin 4,000 Unit/Ml Vial) 4,000 unit IV EVERY HD [facility] Folic Acid (Folic Acid 1 Mg Tablet) 1 mg PO DAILY [facility] Last Admin: 07/19/20 10:02 Dose: 1 mg Documented by: Gabapentin (Gabapentin 100 Mg Cap) 200 mg PO TID [facility] Last Admin: 07/19/20 10:02 Dose: 200 mg Documented by: Heparin Sodium (Porcine) (Heparin 1,000 Unit/Ml Vial) 6,000 unit IV EVERY HD PRN PRN Reason: dialysis Last Admin: 07/13/20 13:32 Dose: 6,000 unit Documented by: Insulin Human Regular (Insulin -Regular Human 50 Unit/0.5 Ml Ml) 0 unit SQ ACHS [facility]; Protocol Last Admin: 07/19/20 13:06 Dose: 3 unit Documented by: Ipratropium [place] (Ipratropium Brom 0.5mg/2.5ml) 0.5 mg NEB [id number] [facility] Last Admin: 07/19/20 14:00 Dose: Not Given Documented by: Lactobacillus Acidoph/[place] (Lactobacillus/Acidophilus Tab) 1 tab PO TID [facility] Last Admin: 07/19/20 13:35 Dose: 1 tab Documented by: Lisinopril (Lisinopril 10 Mg Tab) 20 mg PO DAILY [facility] Last Admin: 07/19/20 10:04 Dose: 20 mg Documented by: Metronidazole (Metronidazole 250 Mg Tablet) 250 mg PO TID [facility]; Protocol Last Admin: 07/19/20 10:06 Dose: 250 mg Documented by: Ondansetron HCl (Ondansetron 4 Mg/2 Ml Vial) 4 mg IV Q6HP PRN PRN Reason: NAUSEA / VOMITING Last Admin: 07/14/20 09:07 Dose: 4 mg Documented by: Sertraline HCl (Sertraline Hcl 50 Mg Tab) 25 mg PO DAILY [facility] Last Admin: 07/19/20 10:05 Dose: 25 mg Documented by: Sevelamer Carbonate (Sevelamer Carbonate 800 Mg Tablet) 800 mg PO TIDWM [facility] Last Admin: 07/19/20 13:46 Dose: 800 mg Documented by: Sodium Chloride (Flush Normal Saline 10 Ml) 10 ml IV BID [facility] Last Admin: 07/19/20 09:00 Dose: 10 ml Documented by: Laboratory Last Values WBC 5.50 K/uL (4.3-10.9) 07/11/20 03:31 RBC 3.87 M/uL (3.86-4.86) 07/11/20 03:31 Hgb 10.8 g/dL (12.0-15.0) L 07/11/20 03:31 Hct 32.7 % (36.0-45.0) L 07/11/20 03:31 MCV 84.6 fL (80-100) 07/11/20 03:31 MCH 27.9 pg (27.0-35.0) 07/11/20 03:31 MCHC 33.0 g/dL (32.0-36.0) 07/11/20 03:31 RDW 17.8 % (12.1-15.2) H 07/11/20 03:31 Plt Count 211 K/uL (152-406) 07/11/20 03:31 MPV 7.0 fL (7.6-11.3) L 07/11/20 03:31 Neutrophils % 58.9 % (41.7-73.7) 07/11/20 03:31 Lymphocytes % 33.6 % (15.3-44.8) 07/11/20 03:31 Monocytes % 5.8 % (3.3-12.3) 07/11/20 03:31 Eosinophils % 0.9 % (0-4.4) 07/11/20 03:31 Basophils % 0.8 % (0-1.3) 07/11/20 03:31 Absolute Neutrophils 3.2 K/uL (1.8-8.0) 07/11/20 03:31 Absolute Lymphocytes 1.8 K/uL (0.7-4.9) 07/11/20 03:31 Absolute Monocytes 0.3 K/uL (0.1-1.3) 07/11/20 03:31 Absolute Eosinophils 0.0 K/uL (0-0.5) 07/11/20 03:31 Absolute Basophils 0.0 K/uL (0-0.5) 07/11/20 03:31 PT 15.2 SECONDS (9.5-12.5) H 07/10/20 15:45 INR 1.32 07/10/20 15:45 Sodium 131 mmol/L (136-145) L 07/11/20 03:31 Potassium 3.8 mmol/L (3.5-5.1) 07/11/20 03:31 Chloride 98 mmol/L (98-107) 07/11/20 03:31 Carbon Dioxide 24 mmol/L (21-32) 07/11/20 03:31 BUN 29 mg/dL (7-18) H 07/11/20 03:31 Creatinine 3.91 mg/dL (0.55-1.3) H 07/11/20 03:31 Estimated GFR 12 mL/min (=/>90) L 07/11/20 03:31 Glucose 121 mg/dL (74-106) H 07/11/20 03:31 POC Glucose 88 mg/dL (65-120) 07/11/20 19:44 Calcium 7.7 mg/dL (8.5-10.1) L 07/11/20 03:31 Phosphorus 4.9 mg/dL (2.5-4.9) 07/11/20 03:31 Magnesium 1.7 mg/dL (1.8-2.4) L 07/11/20 03:31 Total Bilirubin 0.5 mg/dL (0.2-1.0) 07/10/20 15:45 Direct Bilirubin 0.2 mg/dL (0-0.2) 07/10/20 15:45 AST 12 U/L (15-37) L 07/10/20 15:45 ALT 8 U/L (12-78) L 07/10/20 15:45 Alkaline Phosphatase 116 U/L (45-117) 07/10/20 15:45 Rapid Troponin I 0.04 ng/mL (0.0-0.045) 07/10/20 15:45 NT-Pro-B Natriuret Pep 64154 pg/mL (<125) H 07/10/20 15:45 Serum Total Protein 7.0 g/dL (6.4-8.2) 07/10/20 15:45 Albumin 2.6 g/dL (3.4-5.0) L 07/10/20 15:45 Globulin 4.4 g/dL (2.3-3.5) H 07/10/20 15:45 Albumin/Globulin Ratio 0.6 (1.1-1.8) L 07/10/20 15:45 Lipase 84 U/L (73-393) 07/10/20 15:45 TSH 6.180 uIU/mL (0.360-3.740) H 07/11/20 03:31 Free T4 1.04 ng/dL (0.76-1.46) 07/11/20 03:31 Urine Color Yellow (Yellow) 07/11/20 02:49 Urine Appearance Turbid (Clear) 07/11/20 02:49 Urine pH 5.5 (5.0-7.0) 07/11/20 02:49 Ur Specific [place] 1.010 (1.005-1.030) 07/11/20 02:49 Glucose (UA)(Auto) Negative (Negative) 07/11/20 02:49 Urine Ketones Negative (Negative) 07/11/20 02:49 Urine Blood 2+ (Negative) H 07/11/20 02:49 Urine Nitrite Negative (Negative) 07/11/20 02:49 Urine Bilirubin Negative (Negataive) 07/11/20 02:49 Urine Urobilinogen 0.2 mg/dL (0.2-1.0) 07/11/20 02:49 Ur Leukocyte Esterase 3+ (Negative) H 07/11/20 02:49 Urine RBC <5 /HPF (NONE SEEN) 07/11/20 02:49 Urine WBC >50 /HPF (<5) H 07/11/20 02:49 Ur Squamous Epith Cells <5 /HPF (NONE SEEN) 07/11/20 02:49 Ur Urothelial Cells <5 /HPF (NONE SEEN) 07/11/20 02:49 Urine Bacteria 20-50 /HPF (<20) H 07/11/20 02:49 Urine Culture Reflexed Reflexed 07/11/20 02:49 Urine Total Protein 2+ (Negative) H 07/11/20 02:49 C. difficile Ag & Toxin Ag neg : tox neg (NEG : NEG) 07/11/20 15:00 Hep Bs Antigen Nonreactive (Nonreactive) 07/11/20 03:31 Hep Bs Antibody Nonreactive (Nonreactive) 07/11/20 03:31 Hep B Core Total Ab Nonreactive (Nonreactive) 07/11/20 03:31 Hepatitis C Antibody Nonreactive (Nonreactive) 07/11/20 03:31 Hep C Ab Signal/Cutoff 0.10 ratio (<1.00) 07/11/20 03:31 SARS-CoV-2 RNA (RT-PCR) Negative (NEGATIVE) 07/10/20 15:45 Assessment And Plan - Plan Physical exam: General: No acute distress. Patient alert oriented. HEENT: Unremarkable. Neck: Supple. Lungs: Basal crackles, right more than left. Heart: S1, S2. Regular. Abdomen: Soft, nontender. Bowel sounds present. Extremity: Trace edema. Multiple small wounds noted on the feet and left leg. One wound was noted around the mid spangler area. Assessment: 1. Diarrhea 2. Multiple small wound wounds to bilateral feet and left leg 3. Protein calorie malnourished Plan: 1. Fecal white blood cells negative, fecal culture sensitivity negative for Shigella/Salmonella/Campylobacter species. There was some yeast in the stool. Pending ova and parasite results. Continue digestive enzymes, probiotic, Questran, and Flagyl. Antibiotics have been stopped this time. Continue monitor for signs of infection. 2. Continue wound care per wound care treatment. 3. Recommend increase the protein-ensure supplemental shakes. -medical management per primary team -continue monitor CBC and BMP -continue monitor for signs infection Plan of care discussed with Dr. Gaytan Thank you for consultation.
[2020-07-19] MEDS ORDERED: lisinopriL 10 MG TAB PO ONE (22:00)
== END 2020-07-19 15:06 | disposition home health service (06) | DRG 391 ==
LOC: ER 14:16 → ERHOLD 18:29 → 4TH 21:27 → OBSVTOIN 07-11 20:19
PROVIDERS: ADMIT Internal Medicine; ATTEND Internal Medicine
PROC: 5A1D70Z Performance of Urinary Filtration, Intermittent, Less than 6 Hours Per Day (ICD-10-PCS; principal; 2020-07-11)
DX: K52.9 Noninfective gastroenteritis and colitis, unspecified (principal); N18.6 End stage renal disease; I13.2 Hypertensive heart and chronic kidney disease with heart failure and with stage 5 chronic kidney disease, or end stage renal disease; I50.32 Chronic diastolic (congestive) heart failure; I87.333 Chronic venous hypertension (idiopathic) with ulcer and inflammation of bilateral lower extremity; N25.81 Secondary hyperparathyroidism of renal origin; E46 Unspecified protein-calorie malnutrition; R18.8 Other ascites; E87.1 Hypo-osmolality and hyponatremia; E11.22 Type 2 diabetes mellitus with diabetic chronic kidney disease; Z88.5 Allergy status to narcotic agent; Z88.1 Allergy status to other antibiotic agents; Z88.8 Allergy status to other drugs, medicaments and biological substances; Z91.09 Other allergy status, other than to drugs and biological substances; Z79.02 Long term (current) use of antithrombotics/antiplatelets; Z79.899 Other long term (current) drug therapy; Z85.42 Personal history of malignant neoplasm of other parts of uterus; Z99.2 Dependence on renal dialysis; Z68.24 Body mass index [BMI] 24.0-24.9, adult; Z89.412 Acquired absence of left great toe; Z95.1 Presence of aortocoronary bypass graft; Z79.82 Long term (current) use of aspirin; Z90.710 Acquired absence of both cervix and uterus; Z90.49 Acquired absence of other specified parts of digestive tract; Z20.822 Contact with and (suspected) exposure to COVID-19; I25.10 Atherosclerotic heart disease of native coronary artery without angina pectoris; E78.5 Hyperlipidemia, unspecified; I89.0 Lymphedema, not elsewhere classified; E11.621 Type 2 diabetes mellitus with foot ulcer; L97.529 Non-pressure chronic ulcer of other part of left foot with unspecified severity; J42 Unspecified chronic bronchitis; E11.40 Type 2 diabetes mellitus with diabetic neuropathy, unspecified; D63.1 Anemia in chronic kidney disease; M19.90 Unspecified osteoarthritis, unspecified site; N89.8 Other specified noninflammatory disorders of vagina; N25.0 Renal osteodystrophy; E88.09 Other disorders of plasma-protein metabolism, not elsewhere classified; E87.5 Hyperkalemia; L89.151 Pressure ulcer of sacral region, stage 1
CPT/HCPCS: 36415; 51702; 71045; 74176; 80048; 80053; 80069; 80076; 81003; 81015; 82947; 83690; 83735; 83880; 84100; 84145; 84439; 84443; 84484; 85025; 85610; 86140; 86704; 86706; 86803; 87045; 87046; 87086; 87088; 87177; 87209; 87324; 87340; 87449; 89055; 90935; 93005; 94640; 94760; 96365; 96375; 97110; 97161; 97530; 99251; 99285; G0378; J1170; J1200; J1644; J2175; J2185; J2405; J3010; J7030; Q5105; U0003

== ENCOUNTER 2020-09-21 17:37 | Inpatient (IN) | payer OTHER ==
--- OUTSIDE RECORDS SUMMARY | 2020-09-21 17:50 | XMS REPORT | Continuity of Care Document ---
:1955 Author Organization [facility] t Address [address] [place] [address] Care Team Providers Name Role Phone Landy [...] Date Expiration Date Sour ce Cassie ALMANZA [id number] [facility] MEDICAIDMEDICAID 00:00:00 - Marium [id number] Ce nter 2-Present Problems Condition Condition Condition [...] rosis of [address] [facility] [place] 00:00: Medical artery of artery of 00 [...] l mellitus mellitus 00 Center with with home [employer] rep home [employer] rep y y disorder, disorder, with with long-term long-term current current use of use of insulin insulin Smoker Smoker Disease Active [facility] 00 Center Frequent Frequent Disease Active [facility] PVCs PVCs 2[facility]12 [facility] - [facility] Medical 00 Center Essential Essential Problem Active [facility] (primary[facility] (primary) Luke s - hypertensi hypertensi Me moria on on l [facility] Depression Depression Problem [...] d COPD d COPD Clinics type type retirement retirement Problem Active [facility] current current [...] St disease disease [facility] - Memoria l [facility] Clinics Allergies, Adverse Reactions, Alerts Allergy Allergy Status Severity Reaction(s) Onset Inactive Treating Comm ents Source Name Type Date Date Clinician Trazodon Drug Active Nausea And [facility] Allergy Vomiting 2-12 [facility] - 00:00: Medical [place] Morphine Propensi Active Anaphylaxis C HI St [...] in HCl Reaction [facility] - Memoria l [facility] Nitrogly Adverse Active vomiting [facility] cerin Reaction [facility] Morphine Adverse Active headache, [facility] Sulfate Reaction breathing [facility] - Memoria l [facility] Clindamy Adverse Active vomiting [facility] riley HCl Reaction [facility] Family History Family Member Diagnosis Comments Start Date Stop Date Source Natural father COPD [facility] Natural father Cancer [facility] Natural father Hypertension [facility] Natural mother No Known Problem [facility] Natural sister Asthma [facility] Natural sister COPD [facility] Social History Social Habit Start Date Stop Date Quantity Comments Source Sex Assigned At [facility] Cigarettes smoked 2019-12-31 2019-12-31 [facility] bernardino - current (pack per 00:00:00 00:00:00 [facility] day) - Reported Cigarette 2019-12-31 2019-12-31 [facility] - pack-years 00:00:00 00:00:00 [facility] Tobacco use and 2019-12-31 2019-12-31 Never used [facility] - exposure 00:00:00 00:00:00 [facility] Alcohol intake 2019-12-31 2019-12-31 Current [facility] - 00:00:00 00:00:00 non-drinker of Medical Ce nter alcohol (finding) History of tobacco 2017-05-12 [facility] use 00[facility]00 [facility] Smoking Status Start Date Stop Date Source Former smoker 2019-12-31 00:00:00 2019-12-31 00:00:00 [facility] Medications Ordered Filled Start Stop Current Ordering Indication Dosage Frequency Signature Comments Components Source Medication Medication Date Date Medication? Clinician (SIG) Name Name mupirocin 2019-03 Yes QD Apply [facility] (BACTROBAN) 0-03 topically Lay es - 2 % 10:49: daily. Medical ointment [address] [place] [address] collagenase 2019-03 Yes QD Apply [facility] (SANTYL) 0-03 topically [facility] - 250 units/g 10:49: daily. Medi marilin ointment [address] [place] [address] bumetanide 2019-03 Yes 2mg [id number] Take [address] (BUMEX) 2 0-03 [id number] by mouth 3 [facility] - MG tablet [...] - MOUTH Memoria EVERYDAY l AT BEDTIME [facility] Clinics Isosorbide Isosorbide Yes [...] [facility] - MOUTH Memoria EVERY DAY l [facility] Clinics Acetaminoph Acetaminoph Yes Franki (Schedule [facility] en-Codeine en-Codeine Jas III Drug) Shannon - #3 #3 TAKE 1 Memoria TABLET BY l MOUTH Outpati EVERY 6 ent HOURS Clinics NEEDED FOR PAIN Carvedilol Carvedilol Yes Franki TAKE [address] [facility] Jas TABLET BY Lukes - MOUTH Memoria TWICE A l DAY [facility] Advair Advair Yes Franki INHALE 1 [facility] Diskus Diskus Jas DOSE BY [facility] - MOUTH Memoria TWICE l DAILY. [facility] RINSE ent MOUTH Clinics AFTER USE Atorvastati Atorvastati Yes Franki TAKE [address] [facility] n Calcium n Calcium Jas TABLET BY [facility] - MOUTH Memoria EVERY DAY l [facility] Clinics Allopurinol Allopurinol Yes Franki TAKE [address] [facility] Jas TABLET BY Lukes - MOUTH Memoria TWICE A l DAY [facility] Gabapentin Gabapentin Yes Franki TAKE [address] [facility] Jas CAPSULE BY Lukes - MOUTH Memoria THREE l TIMES A Outpati DAY ent Clinics Clopidogrel Clopidogrel Yes Franki TAKE [address] [facility] [address] Bisulfate Bisulfate Jas TABLET BY [facility] - MOUTH Memoria EVERY DAY l [facility] Clinics Vitamin D Vitamin [...] Jas UNITS [facility] es - BELOW [facility] SKIN IN l THE Outpati MORNING ent Clinics HydrALAZINE HydrALAZINE Yes Franki TAKE [address] [facility] HCl HCl Jas TABLET BY Lukes - MOUTH Memoria THREE l TIMES A Outpati DAY ent Clinics Vital Signs Vital Name Observation Time Observation Value Comments Source Heart rate 2020-01-01 08:41:00 60 /min [facility] Respiratory rate 2020-01-01 08:41:00 18 /min [facility] Oxygen saturation in 2020-01-01 08:41:00 100 /min [facility] Arterial blood by Medical Ce nter Pulse oximetry Systolic blood 2020-01-01 08:32:00 162 mm[Hg] [facility] Diastolic blood 2020-01-01 08:32:00 73 mm[Hg] [facility] S [facility] Body temperature 2020-01-01 07:41:00 36.56 Deanne [facility] Body weight 2019-12-30 04:28:00 78.2 kg [facility] BMI 2019-12-30 04:28:00 27.00 kg/m2 [facility] Body height 2019-12-25 21:05:00 170.2 cm [facility] Procedures Procedure Date / Time Performed Performing Clinician [facility] e REPORT OF PROCEDURE - 2020-01-05 08:40:02 Provider, Default [facility] ENDOSCOPY SCAN Scanning [facility] RHYTHM STRIP - SCAN 2020-01-05 08:31:43 Provider, Default [facility] Scanning [facility] RHYTHM STRIP - SCAN 2020-01-05 08:31:42 Provider, Default [facility] RHYTHM STRIP - SCAN 2020-01-05 08:31:40 Provider, Default [facility] CARDIAC CATH REPORT - 2020-01-05 08:31:15 Provider, Default [facility] CARDIAC CATH REPORT - 2020-01-05 08:31:13 Rocco Sepulveda [facility] POCT-GLUCOSE METER 2020-01-01 06:33:00 Cade Pat [facility] CBC W/PLT COUNT & AUTO 2020-01-01 05:37:00 Lily Echavarria [facility] COMPREHENSIVE METABOLIC 2020-01-01 05:37:00 GoodwellLily [facility] POCT-GLUCOSE METER 2019-12-31 20:50:00 Cade Pat [facility] POCT-GLUCOSE METER 2019-12-31 18:00:00 Cade [facility] POCT-GLUCOSE METER 2019-12-31 11:42:00 Cade Pat [facility] POCT-GLUCOSE METER 2019-12-31 06:29:00 Cade [facility] CBC W/PLT COUNT & AUTO 2019-12-31 06:05:00 GoodwellLily [facility] COMPREHENSIVE METABOLIC 2019-12-31 06:05:00 GoodwellLily [facility] MAGNESIUM 2019-12-31 06:05:00 [facility] POCT-GLUCOSE METER 2019-12-30 20:13:00 Cade Pat [facility] POCT-GLUCOSE METER 2019-12-30 16:26:00 Evens Mohamudruel [facility] SURGICALLY OBTAINED 2019-12-30 13:59:46 Cade Pat [facility] - CULTURE + GRAM STAIN Medical Matthew ter ANAEROBIC CULTURE 2019-12-30 13:59:46 Cade Pat [facility] SURGICALLY OBTAINED 2019-12-30 13:54:56 Cade Pat [facility] - CULTURE + GRAM STAIN Medical [facility] ter ANAEROBIC CULTURE 2019-12-30 13:54:56 [facility] TISSUE EXAM 2019-12-30 13:38:00 Tala Santacruz [facility] I&D,BONE FOOT 2019-12-30 13:11:00 Tala Santacruz [facility] POCT-GLUCOSE METER 2019-12-30 11:39:00 Pat Mohamudromerofarhad [facility] POCT-GLUCOSE METER 2019-12-30 05:39:00 [facility]OV2/[facility] ([facility] & 2019-12-30 05:11:00 Pat Mohamud [facility] - REF LABS) [facility] CBC W/PLT COUNT & AUTO 2019-12-30 05:09:00 GoodwellLily [facility] METABOLIC 2019-12-30 05:09:00 GoodwellLily [facility] POCT-GLUCOSE METER 2019-12-29 21:09:00 [facility] POCT-GLUCOSE METER 2019-12-29 11:10:00 [facility]EM[facility] INPATIENT 2019-12-29 08:12:17 Brandie Khan [facility] POCT-GLUCOSE METER 2019-12-29 06:10:00 [facility]ud [facility] CBC W/PLT COUNT & AUTO 2019-12-29 05:50:[address] [facility] DIFFERENTIAL [facility] METABOLIC 2019-12-29 05:50:00 GoodwellLily [facility] POCT-GLUCOSE METER 2019-12-28 20:37:00 [facility] POCT-GLUCOSE METER 2019-12-28 17:38:00 [facility]ade [facility] POCT-GLUCOSE METER 2019-12-28 13:12:00 [facility] POCT-GLUCOSE METER 2019-12-28 05:43:00 [facility] CBC W/PLT COUNT & AUTO 2019-12-28 04:41:00 Lily Echavarria KATHRYN S t [facility] DIFFERENTIAL [facility] COMPREHENSIVE METABOLIC 2019-12-28 04:41:00 GoodwellChloeu [facility] ABD AO & LOWER EXT 2019-12-28 02:30:00 Sakina Tamayo [facility] - ANGIOS/ POSS PPI [facility] POCT-GLUCOSE METER 2019-12-27 20:32:00 Pat Mohamud [facility] MR LOWER EXTREMITY 2019-12-27 16:30:00 Jericho Lily [facility] - WITHOUT IV CONTRAST [facility] POCT-GLUCOSE METER 2019-12-27 14:06:00 [facility] WOUND CULTURE + GRAM 2019-12-27 12:02:00 Annia Delgado [facility] POCT-GLUCOSE METER 2019-12-27 06:44:00 Pat Mohamud [facility] POCT-GLUCOSE METER 2019-12-27 05:49:00 [facility] CBC W/PLT COUNT & AUTO 2019-12-27 05:05:00 JerichoLily KATHRYN [facility] COMPREHENSIVE METABOLIC 2019-12-27 05:05:00 Jericho Lily [facility] HEMODIALYSIS INPATIENT 2019-12-27 00:31:18 Brandie Khan [facility] POCT-GLUCOSE METER 2019-12-26 20:51:00 Pat Mohamud [facility] TRANSFUSION SERVICE 2019-12-26 18:02:[address] [facility] REPORT - SCAN Scanning [facility] POCT-GLUCOSE METER 2019-12-26 16:42:00 [facility]CTA AAA AND RUNOFF 2019-12-26 15:27:00 Sakina Tamayo [facility] POCT-GLUCOSE METER 2019-12-26 11:59:00 Pat Mohamud [facility] POCT-GLUCOSE METER 2019-12-26 06:09:00 Pat [facility]ud [facility] CBC W/PLT COUNT & AUTO 2019-12-26 04:36:00 Lily Echavarria [facility] 2019-12-26 04:36:00 Lily Echavarria [facility] PREPARE LEUKO-REDUCED RBC 2019-12-25 23:54:00 Brandie Khan [facility] POCT-GLUCOSE METER 2019-12-25 20:51:00 Pat Mohamud [facility] TRANSFUSION SERVICE 2019-12-25 18:04:[address] [facility] REPORT - SCAN Scanning [facility] POCT-GLUCOSE METER 2019-12-25 17:01:00 Pat Mohamud [facility] POCT-GLUCOSE METER 2019-12-25 11:25:00 Pat Mohamud [facility] CBC W/PLT COUNT & AUTO 2019-12-25 05:59:00 Lily Echavarria [facility] 2019-12-25 05:59:00 GoodwellLily [facility] POCT-GLUCOSE METER 2019-12-25 05:58:00 [facility]ade [facility] TRANSFUSE LEUKO-REDUCED 2019-12-24 19:06:[address] [facility] RED BLOOD CELLS [facility] POCT-GLUCOSE METER 2019-12-24 16:15:00 [facility] ABORH, MANUAL 2019-12-24 08:25:00 Jovita Griffith [facility] POCT-GLUCOSE METER 2019-12-24 06:11:00 Pat Mohamud [facility] TYPE AND SCREEN, 2019-12-24 06:08:00 Brandie Khan [facility] es - AUTOMATED [facility] CBC W/PLT COUNT & AUTO 2019-12-24 05:51:[address] [facility] 2019-12-24 05:51:00 Lily Echavarria [facility] POCT-GLUCOSE METER 2019-12-23 21:23:00 Pat Mohamud [facility] POCT-GLUCOSE METER 2019-12-23 16:42:00 [facility] MR LOWER EXTREMITY JOINT 2019-12-23 15:34:00 Tala Santacruz [facility] - ONLY WITHOUT IV CONTRAST Medical [place] LEFT MR BRAIN WITHOUT IV 2019-12-23 15:34:00 Lily Echavarria [facility] L uk - CONTRAST [facility] POCT-GLUCOSE METER 2019-12-23 11:16:00 [facility] ARTERIAL DOPPLER LEGS 2019-12-23 09:38:[address] [facility] BILATERAL [facility] AMMONIA 2019-12-23 04:05:00 Mariela Carrasco [facility] CBC W/PLT COUNT & AUTO 2019-12-23 04:00:00 GoodwellLily [facility] COMPREHENSIVE METABOLIC 2019-12-23 04:00:00 GoodwellLily [facility] SARS-COV2/RT-PCR ([facility] & 2019-12-23 03:59:00 Pat Mohamud [facility] - REF [facility] POCT-GLUCOSE METER 2019-12-22 20:34:00 Pat Mohamud [facility] POCT-GLUCOSE METER 2019-12-22 16:43:00 Pat Mohamud [facility] POCT-GLUCOSE METER 2019-12-22 11:31:00 Pat Mohamud [facility] POCT-GLUCOSE METER 2019-12-22 06:30:00 Pat [facility]ud [facility] CBC W/PLT COUNT & AUTO 2019-12-22 05:14:00 GoodwellLily [facility] S [facility] COMPREHENSIVE METABOLIC 2019-12-22 05:14:00 GoodwellLily [facility] POCT-GLUCOSE METER 2019-12-21 20:26:00 Cade [facility] POCT-GLUCOSE METER 2019-12-21 17:22:00 Cade [facility] POCT-GLUCOSE METER 2019-12-21 12:35:00 Cade [facility] POCT-GLUCOSE METER 2019-12-21 07:20:00 Cade [facility] POCT-GLUCOSE METER 2019-12-21 05:52:00 Cade [facility] C-REACTIVE PROTEIN 2019-12-21 04:39:00 Annia Delgado [facility] CBC W/PLT COUNT & AUTO 2019-12-21 04:39:00 [facility] COMPREHENSIVE METABOLIC 2019-12-21 04:39:00 [facility] US ABDOMEN COMPLETE 2019-12-20 21:17:00 Sakina Chen [facility] POCT-GLUCOSE METER 2019-12-20 20:23:00 Cade [facility] POCT-GLUCOSE METER 2019-12-20 17:31:00 [facility] CT BRAIN WITHOUT IV 2019-12-20 16:04:00 [facility] 2019-12-20 14:41:00 [facility] BLOOD GAS, ARTERIAL 2019-12-20 14:28:00 [facility] XR FOOT 2 VIEWS LEFT 2019-12-20 11:55:00 Annia Delgado [facility] POCT-GLUCOSE METER 2019-12-20 11:28:00 Cade [facility] POCT-GLUCOSE METER 2019-12-20 06:20:00 Cade [facility] OCCULT BLOOD, STOOL 2019-12-20 06:19:00 Benny Chenra Carrillo [facility] PT/APTT 2019-12-20 05:06:00 [facility] Sakina Carrillo [facility] FIBRINOGEN 2019-12-20 05:06:00 [facility] D-DIMER 2019-12-20 05:06:00 [facility] IRON, TIBC, % SAT. 2019-12-20 05:06:[address] [facility] (WITHOUT FERRITIN) [facility] r VITAMIN B12 AND FOLATE 2019-12-20 05:06:00 [facility] Sakina Carrillo [facility] RETICULOCYTE COUNT 2019-12-20 05:06:00 [facility] HAPTOGLOBIN 2019-12-20 05:06:00 [facility] Carrillo [facility] TSH/FREE T4 IF INDICATED 2019-12-20 05:06:00 April Sakina Iqba l [facility] FERRITIN 2019-12-20 05:06:00 [facility] Sakina Carrillo [facility] ANTI-NUCLEAR ANTIBODY 2019-12-20 05:06:00 Sakina Chen C [facility] (ROGER) [facility] KAPPA / LAMBDA LIGHT 2019-12-20 05:06:00 Sakina Chen [facility] PROTEIN ELECTROPHORESIS, 2019-12-20 05:06:00 Sakina Chenba l [facility] PERIPHERAL BLOOD SMEAR - 2019-12-20 05:06:[address] [facility] PATHOLOGIST REVIEW [facility] r CBC W/PLT COUNT & AUTO 2019-12-20 05:06:00 Marcial Chapa [facility] COMPREHENSIVE METABOLIC 2019-12-20 05:06:00 Marcial Chapa [facility] T4, FREE 2019-12-20 05:06:00 April Sakinara Carrillo [facility] ROGER TITER AND PATTERN 2019-12-20 05:06:00 Sakina Chen [facility] POCT-GLUCOSE METER 2019-12-19 20:35:00 [facility] POCT-GLU[facility]SE METER 2019-12-19 16:06:00 Evens Mohamudruel [facility] HEMODIALYSIS INPATIENT 2019-12-19 16:02:09 Sharri Fernando [facility] CBC W/PLT COUNT & AUTO 2019-12-19 05:35:00 Marcial Chapa [facility] BASIC METABOLIC PANEL (7) 2019-12-19 05:35:00 Marcial Chapa [facility] LACTATE DEHYDROGENASE 2019-12-19 05:35:00 Sakina Chen [facility] (LDH) [facility] POCT-GLUCOSE METER 2019-12-19 05:24:00 Evens Mohamudruel [facility] POCT-GLUCOSE METER 2019-12-18 21:35:00 Cade Pat [facility] POCT-GLUCOSE METER 2019-12-18 16:05:00 Cade Pat [facility] POCT-GLUCOSE METER 2019-12-18 07:45:00 Cade [facility] POCT-GLUCOSE METER 2019-12-18 06:14:00 Evens Mohamudruel [facility] POCT-GLUCOSE METER 2019-12-17 21:44:00 Evens Mohamudruel [facility] POCT-GLUCOSE METER 2019-12-17 17:52:00 [facility] POCT-[facility]UCOSE METER 2019-12-17 12:22:00 Cade [facility] HEMODIALYSIS INPATIENT 2019-12-17 10:33:08 Brandie Khan [facility] POCT-GLUCOSE METER 2019-12-17 06:18:00 Cade [facility] CBC W/PLT COUNT & AUTO 2019-12-17 04:14:00 Marcial Chapa [facility] COMPREHENSIVE METABOLIC 2019-12-17 04:13:[address] [facility] PANEL [facility] POCT-GLUCOSE METER 2019-12-16 20:55:00 Pat Mohamud [facility] POCT-GLUCOSE METER 2019-12-16 18:24:00 [facility] HEPATITIS B SURFACE 2019-12-16 16:02:00 Aldulacey [facility] ANTIBODY [facility] HEPATITIS B SURFACE 2019-12-16 16:02:00 [facility]rett[facility] ANTIGEN [facility] HEPATITIS C ANTIBODY 2019-12-16 16:02:[facility] CORE 2019-12-16 16:02:00 Radhabon [facility] es - ANTIBODY, TOTAL [facility] POCT-GLUCOSE METER 2019-12-16 14:47:00 Pat Mohamud [facility] IR TUNNELED DIALYSIS 2019-12-16 14:26:[address] [facility] CATHETER [facility] HEMODIALYSIS INPATIENT 2019-12-16 12:37:39 Bill [facility] POCT-GLUCOSE METER 2019-12-16 11:01:00 [facility] X[facility] CHEST 1 VIEW 2019-12-16 05:55:[address] [facility] PORTABLE/BEDSIDE [facility] POCT-GLUCOSE METER 2019-12-16 05:51:00 Pat Mohamud [facility] CBC W/PLT COUNT & AUTO 2019-12-16 04:08:00 Marcial Chapa [facility] BASIC METABOLIC PANEL (7) 2019-12-16 04:08:00 Marcial Chapa [facility] PROTHROMBIN TIME/INR 2019-12-16 04:08:00 Marcial Chapa [facility] SARS-COV2/RT-PCR ([facility] & 2019-12-16 01:45:[address] [facility] Plan of Care Planned Activity Planned Date Details Comments Source Future Scheduled 2020-12-[address] [facility] - Test 00:00:00 examination [facility] (regime/therapy) [code = 570775442] Future Scheduled 2020-12-[address] [facility] - [facility] 00:00[facility]00 [facility] [place] [facility] ([facility] [code = 586927347] Future Scheduled 2020-11-[address] [facility] - Test 00:00:00 (Season Ended) [code = Medic mt Center INFLUENZA VACCINE (Season Ended)] Future Scheduled 2020-03-[address] [facility] - Test 00:00:00 (12+) [code = Medical Center DEPRESSION SCREENING (12+)] Future Scheduled 2020 PNEUMOCOCCAL 65+ YRS [facility] - Test 00:00:00 (1 of 1 - Medical Center [id number]) [code = PNEUMOCOCCAL 65+ YRS (1 of 1 - [id number])] Future Scheduled 2017-11-[address] Janna kes - Test 00:00:00 measurement [facility] (procedure) [code = 83925083] Future Scheduled 2005 SHINGLES VACCINES ([address] [facility] - Test 00:00:00 of 2) [code = SHINGLES [facility] VACCINES (1 of 2)] Future Scheduled [address] [facility] - Test 00:00:00 (procedure) [code = Medical Center 92618968] Future Scheduled [address] - Test 00:00:00 [facility] cervix (procedure) [code = 448746052] Future Scheduled 1974 DTAP/TDAP/TD VACCINES [facility] Test 00:00:00 (1 - Tdap) [code = Medical C enter DTAP/TDAP/TD VACCINES (1 - Tdap)] Future Scheduled 1967 COVID-19 VACCINE (1) [facility] - Test 00:00:00 [code = COVID-[address] VACCINE (1)] Future Scheduled 1965 DIABETIC EYE EXAM [facility] - Test 00:00:00 [code = DIABETIC EYE Medical Center EXAM] Future Scheduled 1965 Urine screening for [facility] - Test 00:00:00 protein (procedure) Medical Center [code = 946916892] Future Scheduled [address] [facility] - Test 00:00:00 malignant neoplasm of [facility] breast (procedure) [code = 791847953] Encounters Start End Encounter Admission Attending Care Care Encounter Source Date/Time Date/Time Type Type Clinicians Facility Department ID 2020-03-28 2020-03-29 Emergency Chato Fine [facility] [id number] 15:50:00 20:31:00 Maureen Terrazas [id number] [place] [id number] [place] [id number] 2018-11-17 2018-11-17 [facility] [id number] 11:30:00 11:30:00 [facility] 2018-10-06 2018-10-06 [facility] [id number] 16:14:00 16:14:00 [facility] 2018-09-28 2018-09-28 [facility] [id number] 10:30:00 10:30:00 [facility] Results Test Description Test Time Test Comments Results Result Comments Source ANAEROBIC CULTURE 2020-01-04 10:26:00 Test Item Value Reference Range Interpretation Comme nts CULTURE (BEAKER) (test code = 1095) No anaerobes isolated Tissue [id number] 10:21:00 Test Item Value Reference Range Interpretation Comments Case Report (test code Surgical Pathology = 104) Report Case: [id number] Authorizing Provider: Tala Santacruz DPM Collected: 12/30/2019 01:38 PM Ordering Location: [address] Med/Surg Received: 12/31/2019 06:52 AM Pathologist: Jovita Griffith MD Specimens: A) - Soft Tissue, Other, left 5th proximal phalanx B) - Metatarsal, Left, left 5th metatarsal DIAGNOSIS (test code = [id number] 3220) FuZzEwMzNcZnRuYmpcdWMx BExykwVbKFiyl0VzL4XtOx AwMFxhbnNpXGRlZmxhbmcx BABqYDB4ojQeHBIhMZmvJQ JgSFwsQh1krQGdiDehYyJb YZFyu9rtauONsamdsRn6k7 nbPTOfJgW0fCQhIVrdB6vf plGbvGUtBYUcQVq6aT13QS SxeG2hoPWcUNklheIzYfH1 GUgoHPKtSzN0CISnuZBtXE MhS2xiQUFdUMwiKZYrCUsv aXJjSVY2qWclu3E1hEUdoB XykKgwHkPnZeQgGBRBw5Kr DXa0xRfeZ1GmJGCfXvN8gM QgUGFyYWdyYXBoIEZvbnQ7 iV79HWrtlhV3wLQeb2Vfz7 9bm270yB2muJJlPUF4AGZs BCHywPIbMZLzJIQ3AFYiuC EjD2v5GxQzpRJjR6V7UtLz xEKkN4O6XyDxmTNjN9I7Ah DslVDnVAUsqQLiDd0kiUKj fKNmto4glv73XWF8z7EnrE asNMC3HUQ2GqVqUr3apTYq FSQjHR1vIoGsaAEzQPKall 10bMhbRPcpozXhrQ1cPhRt FHGurXDjBAKwKT1fjYEyFH ZopA3shthzJSDbZfGyanrj FJMikTfoybMiQn1ltHjqJY J9RQpjF1jnqA9bFgG2SKtp N8gepM2dTKq5JJbwmSN0TR ZtqH1dFU2jbdvgv9fdIpDs KP9qrulks4hhKpZpOE3yus p0a7ggFsHbSQ8waejxo5yk NzIwXGhlYWRlcnkwXGZvb3 CouadcCPCzj9AyC0SlnXwy L43dhWqcG07mOONscKwujN 9sxNfrzB0uYeBoXrKhJEjs bFxwbGFpblxmMVxmczIwXG lyltrkQRAsIYdqI3vkRyBu UCHigNpaLKehl1UaHOGgVA YyKqYdPW8iMd8STJuhWRHS GSSIMDOYPOKNLn6WKG5YRB GABFLBMX4NIIGDKV4GN8o6 EZSqcwXeUZYfGGKJBL0oW0 qCXXJFQgXSMhvSUI3JSHTM UlRJTEFHRSBXSVRIIFNVUl FBQA5WJY6NZECLLNNYNXEB RCBDSFJPTklDIElORkxBTU 1BVElPTlxwYXJccGFyIEIu IEJPTkUsIExFRlQgRklGVE ggTUVUQVRBUlNBTCwgQklP UFNZOlxwYXIgICAgLSBBQ1 XRUXTTW3PZK37TCNyGRFjS IFxwYXIgICAgLSBTRVBBUk IBPEQLBdXEJVTCCZMcR4Hl CucOPc7FT66SPSBJKPZAXN HCI3YECFWMANRQCECZN1UG C5MdPR2JQ5PGF4gWFCQNVF BHUkFOVUxBVElPTiBUSVNT SURoFy8ZTOBKHO3YJEHmit 83RMZ9TpPrn3E2NEP1JDQs AJAaw7xzJAKajBGbZrAkTu NcZnRuYmpcdWMxXGRlZmYw w2tvw685oMDde9pyIUTrOa C7jZZnOURztZPbG747EEHw UJfwo9vyo4YnUFQzsHHsg4 O3FJSFpwacvBw9jNuyB28s k3J4QftpR2bjRCCeWYEyP8 IgKK7hFNOqCcq6ERG2SIV6 BTRdOIIlE6WgUU2uRQNcoH TuBOm8d6esuAzkPKFwXTA4 f2kuCGmaroVsMM0uki0mjN i9q1rrevWiQWPkDQAqzWIV JJHwW5TsqXghYh8yoLc6iO rhWiaxAHL5Ohc0ZG7nrh86 gap4vCqqZLEgbmdwZsP0PC ulZDKffrloNKc2YBgjWUYy uVF4WEZjsDGiZ3IpABFgDD 2kajn1XVY5XMpkUVAoNgN7 NDBcaGVhZGVyeTcyMFxmb2 16FMZ9LfTvEZ6cN3Yye5A4 lU0jxNBxLINwgEMiKsPpID Izxk2txQHkWUzkl8KgNGT1 nuM6sZQkxVOnYJRkGwZ8SP bwIR1jar71KGMfBWD3rc2f bGNccGdicmRyaGVhZFxwZ2 VhJOVzn682YJLaV2VlLTJq t6Z8dsDlAvZbMLFmrMX5ra P2ZWZwNN9ndlzrp7ueTNpv PHsuWGPrjyK3phV1ZNPknL UzT7PamQ0zIKUfDI8axevk s6yjOBX3QNviQTTqKPM9Cz DuXJJdh5Akdga6QoTdb9At hOBnTHhgJ53vz090HVWlge RlV9dwnWGncwbrlHXevtoj NEtzihU0TJNqAUdfqswrDU QtEYdqJ8poFiPfCSUxrArw CXgnp4YnGPWgZVTaTnUctO IoUDMsGmv0MKMdnUErGQQz TwVfZ0lbslgzBoESCBYkn6 zvS9ktjHUXiRWnK4PcCXks abFkICclOHfmYKA2RQU8Fu 47ByF3IEPkdo10 CPT Code(s) (test code k9ncsYCnRMUudHUlTgHoSA = 3357) TeOMAqa6wqNJNbpZEdGxMz MzNcZnRuYmpcdWMxXGRlZm Hra9wcg776cWDsm5zvPPAa ZsS1hZHnMAByaUNiZ649t3 ydg3jvztPrkES5RGTbQZX1 TCwroqDmmuM1WHtmpLHjSn P2JVbfnwGcOFnfqfTnffUb Iku6HQAbC467VQI8zQjzd1 vnFPO0EWUdOPHrZuYgZm9q yMJgV968RJIyNRTTJVYclK t8METtpiTucaBojKFEs540 T032h7syYECmxtXqmDkZfs nsy8tnM228UCQmlREvbbCn VhGkZQCtlGJlsHH4TKXhUW 7qnbpiInGhKA0spqopRfYo IK7bttk7XkCsSW2akgoiTs RzTYsuQNCrfhcaNFRpg4Pm fenlGR4rG2Rlo0B9bI4rzK JpMKUanNMjEaOgOOXbzi2k kTHzIOqga5SpBET3plC4uY DraAGyMJDqVE70Sorgy3Nf XsfhCFN8FSXbkeSvj6Rng3 vyDzQlwmUrO9dsI8EsYYQq QPWbHXWnRfXiziSrv1Ali9 KlvHIfjDu9o8fvFPDmTGRz kDnqn6esCNC5KHHfS5W0iK Gfk4oyMLbdCEXnxDD1fnhm VTvkJNIlihY8vkdiNLfaOK WklBH2wulwFGdiGNWlWtE8 jgpiTWelGSXnOVR7PCmmg2 75LYY9BTrsOmzyZRgsYEZt bmNvbnRccGduZGVjXHBsYW luXHBsYWluXGYwXGZzMjRc rQwhfIyrpL4qVtRaWgNkYL dsAA1iIQAwP0wlmPIoQSWe TJWxF3caDaFpdL2gdWaaBM tuzrRfJH5EN0F4JQFwrhT7 GRWdThC4FckcABBwBRxbHM EgeDJccGFyfQ== CLINICAL HISTORY (test a6szzLAiJLNajOGjUtLxAZ code = 3356) NiPKWat0muGYFrjSJvUiCm MzNcZnRuYmpcdWMxXGRlZm Rcx7ubi130mSSrz3dlDEYc UsI0oLJvOZPreUUhG880j5 dnp4swlpYagWR0ZDOxZBK4 KAwjtlAvkoJ3NBwckJKvPe O2UFkoxlKzGTqsjqLcvbWu Ynr7UYZrP347ILB3tIwkr7 wwXKN4TXUuRGEuQeFpKe7r kLFoZ381CXFeLZMPJJFkwH e2NJKlkqZprjBfpOYEn680 E262t1nyEUIlpxNeiQyBoc lxi6dbO014TPSyaNKjcuPj EwStWFOyiZFhdQS6OGBnNI 6rpogvBaBaWU1inuovSoKe AY3srzv6AkEaCS2mjwegWy UwFQwrBKOmljtxSALra6Bn bqrtKJ6aZ2Uso3C1uU3meU MzAZIieWIuUhDmQPGbly2i pNEcJNxjl1KiLZM4hcV7sE TceRHtHAWcKP98Wqplt9Wr NyubFWE3TWRbfdYgu9Xck7 kdHcIlbhNuB2kaR0UjFRFw RUBfAWXkHvEjtyOls3Uyb5 HimMVijPt9d4vgHSZfJOXw pWlok0hjBLN9XSTuH8T2uY Xxe3scZXbpBCKidAO1gnmt RWcaXDYkamC7ofbkPTkxRU FahHQ2zztyBRsgAHFmUxX8 bixrISlvACJuPKE1MFsgl8 71KPK3IYmyCabiAArrKBEp bmNvbnRccGduZGVjXHBsYW luXHBsYWluXGYwXGZzMjRc fXbnvCoyfA1cXoCfBcDoHR mhQA2yNFUvF8wpaBPrIWAw BNBdA8aqPlAstN7fvQygAZ pawvUmNX8rqZEzmYjhyVw1 jDWkz5GqmOPjdKK2oTkseE Y1VHUrpoOcfPvcwImaXLNa s4LwQztwYTKmooNrHBQwPW RccGFyfQ== SPECIMEN SOURCE (test m1qhjZXvUOIbkMKbBsJpSS code = 3377) VbTPUeg4odYUPkcIQmXlCb MzNcZnRuYmpcdWMxXGRlZm Yxo3kvb914oMLto9tzKBJw WwJ1xHVlMTPdnONqN727a8 vns3zgmsMxbPN8EHCoCYV9 QCopddYcmjG2LZtxjBVuEb T8ITkklwHkZZczoeEqcxSw Gvi8ZZYtN534WFS3bXwol2 smLWB4TCYbOKAjJrSfXu3w zDXjH170DXKbCNFBHHUatH o6TTMmqiOzivWnqLWPs692 R488a5zfXXYbteMamZlRxm nfi0ybE674CLSbmOOjwxVg NyDwJYZhtUOahAI4LRZrYA 5fiodtZoXfWK9psorbEnUt SC2pjsc4RcHbNU3hytjeEb EbPJnaTLDvepjpRIEob8Wv gusfKT9kA0Rtf1O9fA1jgD YnKEStkYJyNoUvEPOeiu0c dAMaBNbnn4DbZXO5ewJ1lH NeuWZjGGUsLJ31Itapr3Rs SxwkAJD5DAHmvbAng0Qfv5 ttKbUsmvUyJ4jsD9ElGSMt EETnSOEmOfOpsiVra7Irs5 PmoLQskQg7u1bgECWlQOBk kIeuw1hzSZZ6IWMvE5W9jO Lsp8kwMKmvFIHzvFD0focf VAmvWIJrycL4pxgrMWwxCF JjnSE0rottLIliROZnKfN3 aahxTSpxVNVyCCS0EBmly0 82YAM1YXenIbxmKBwtBFUa bmNvbnRccGduZGVjXHBsYW luXHBsYWluXGYwXGZzMjRc vAmnkKvulX8nKyUnCwWaPS mkOO2pPKBoF9idwBTdEVAn EIErT7vsZnQhoT9kqQrgER xmczIwIEEuIExlZnQgNXRo BFSnb8ygvXZuBGScTZtdso ayQFCpDXnwCzTsVDFrXK2v dRD9GSIbICqcQUAumf0= GROSS DESCRIPTION (test d2wywOIyDSNxqDObVrDbOL code = 3366) NoIYWfx1ycEGJefBGpHdQz MzNcZnRuYmpcdWMxXGRlZm Yrg7aog174vVBco5agUMWe ZjJ5dCQmTMFtcCIdM051OZ WxKLcic1kpt1TcFMVooDKn u6R9FBMXuatkfZa9aKgkM7 4mb3S7NjkxK0wtHVUoAYGj B9BwOO0uBLYwPoh7SKB0AI Z7TAUdANOyX8LqZJ3iXMWl hRTxGPq4k4jxvHuoIHIqAJ Y8u2wbUHflhdHqYE0zoz0n gOy5e8zeuvMhMTTtIXVgpS OCWXLeR8PvkFugKm2nxQr9 jWpeKjraIYJ8Uzb1XO9zmc 25pys1bYufTZZypzgwDuK5 XNwxJCGdojkgBYy6WGyhSS JnbDcyMFxtYXJncjcyMFxt YXJndDcyMFxtYXJnYjcyMF sqKNRiXDE1IHjet453EUU7 DNbws0hdo8tfaBOdJxe2EW ZbGvNjOoagVRjqb6Fod7ch XZCrvl1qNDR9eAPaxJoep8 J0hHKrNOJizVGykyDiEMBa JaS2BSegAZ2efj20NMUcKJ A7re1bmPTbzJyjeiClkLDm AAohH5WxKEFfk113MEAkD1 DoUUGhu5F1bgIcVyVkXTSu vDL1yiX4ZMPnSXo7uDOucn F2vrKmdJMdP8fzgY92CkYu wNStZ4PnrE52HxScuQOqY8 TthC87JxLytUGzW7CajD40 OzLmmWElLIDfzTPyYz6lxU LmmJMex1ThyBYeUZznZ88t x297QNAdjcJpI4xybMCjgn vynLYnzxzeUVntwvJ4GRLq XHBsYWluXGYwXGZzMjBcbG FuZzEwMzNcaGljaFxmMFxk IjScABRzWRcoD6kkRwDjRb RjAVWMiNEjtN2wflEGSHkx SMKpU0HcxkLeNPzjMULowM F9kWSsBLveXiQhNZLda6n0 nXG2xGTjyXT8nNNlnXnmFY 2hkRCiYP3oYX0yHYshITrh sdTix0JnHQ96jZIcwkVcfa QgZGVzaWduYXRlZCBhcyAi x12pdQY2eNExtBOpCO41mW SxQiluH87dh8ljnVHhi0Fx d0eptKUzpXWifQ72CRLhmq BtMcDjR95lrcYmQX1lSTW8 cmluZyAwLjcgeCAwLjMgeC JnIzVbV36oBZAfPTQfnEFu jF8ifzLgbqAvvDTbhPZ8NF YjKY63xFSwfOayqP77uaKQ WGXufjJymI37nePzUAOtdK Mdl8o5uQqhvr9ewSRrPNQy nmWTaYCnnA2wbpVKLUqdQA SwN6OrtkRgHDxqPZIxvRM9 fRJjMXgxEoAdGKBmi9d6vD O0oACbeRH2eGBpeCxqYK3w cNKsQC0sAJ0yVUtvJHmtzd Prt4WyVT71hXWhuuHgmhOx ZGVzaWduYXRlZCBhcyAibW Q7ELSwrcMdqCFvSVM8Mrdz J18kg9abnDIgc5HoVx85nd RgUIZlSdBvi76rhMwfs0Ne VHMxVSXfo08wIMXfMPjqEZ 19bkIsEREmmTHsvnmtYb5p FBmhKU96QQzxXQ22BIEzZI utZQOnN8MeY7P2BH1gdUdf IHNwZWNpbWVuIGlzIGVudG pwJBi9ROcdlJFbvzqmTZfw czIwXGxhbmcxMDMzXGhpY2 eqQgSkDGEfrLeaRQndk5Jo HEZnKWAgAtZeDqAeGA2vLG mreU6nLMKgHKxxv14eeKYw e17nKRUbECuqIDOhFPIiWu BcbGFuZzEwMzNcaGljaFxm VJagAeSwPQBhBHsuZ3auIv BcZnMyMCAgTUcvZXdccGFy fQ== MICROSCOPIC DESCRIPTION d9rejUIvEJHjuECgJtObTZ (test code = 3371) ShDBRxd8cqNTIqgWXsWkKf MzNcZnRuYmpcdWMxXGRlZm Jyn7por424bKVbe5okXUJq IwL6sUDwYNClgYTdK864n2 yzh3cyusHngCG3AXHvRFV0 LMpbwhClyeE6KPgzzVTrAk H1CArnkeXqFJwqcdOdplOf Gxa3LVBfL088BGP0wYoyz8 tqTUF6PDKbWWBgTuVkAt2q cWJoV789QXNgRNKWNOAjlX b8HFCjorAnokOneJKUk074 P760r8qrJBHhwdFjnCqQmg azl0zfK963FTAjnDGygpDt ZwZnIQRbzJXksAD9MWNhLG 6lltqrKfEyDI2crwaeAvWx JM7zeak1XpCbCV1rukzdKh BoPBagEPGcutqcBIWck8Oo hmaaJB1rB9Efe5E1pQ2coG EoRCMhjZNoSqOvCDYmzo3r xUKvVQrwe3WdGOZ5xvI8qO HfpTKcDHOjUD04Opjam5Mn OrcdQQX5ZVJotxJkj4Sep8 wsPsIwcsYfT2heN0HaTOTc XDMkYPMgLvIzffZhl5Fjs1 XxsYJzhRj2g9ltGCAxSDUs iYict9hzEHF3IOWsU1Z6pL Wfi4mcRZfmUJOepZE2ravz PGbnWIBldsC2ebqfHNceNT KwaWR4dzfuWQenVDReTdH8 eanaTGpsLJGdQEV9FEneu7 45XAL7RHkwCfhpDUclHHYd bmNvbnRccGduZGVjXHBsYW luXHBsYWluXGYwXGZzMjRc uHrciKjixO5oGcFnFmPaNX wyAH4qRNNiW8pwzZPfIXSr JYWxT6ojZiLmxS9nsBncTD ysgpZpGVRcSf7hZOGkAq9i bWVkLlxwYXJ9 Gross assessment was [facility] performed at (test [facility], Department = 2777) of Pathology, [address] [place] [address], Technical component was [facility] performed at ([facility], = 2778) Department of Pathology, [address] [place] [address], Professional component [facility] was performed at ([facility], Department code = 2779) of Pathology, [address] [place] [address], [facility] [id number] 10:21:00Surgical Pathology Report Case: [id number] Authorizing Provider: Tala Santacruz DPM Collected: 12/30/2019 01:38 PM Ordering Location: [address] Med/Surg Received: 12/31/2019 06:52 AM Pathologist: [...] TISSUE FORMATION Signing Pathologist Direct Phone Line: [phone] signed by Jovita Griffith MD on 01/04/2020 at 10:21 AM/[id number] of left 5th metatarsal, ulcer of bilateral [...] entirely B1 and into decal solution. MG/Veronica-B. Performed.[facility], Department of Pathology, [address] [place] [address], Xjs[facility], Department of Pathology, [address] [place] [address], [facility], Department of Pathology, [address] [place] [address], BTJXUPAVD [id number] 10:47:00 Test Item Value Reference Interpretation Comments [...] negative Staphylococcus SURGICALLY OBTAINED CULTURE + GRAM [id number] 08:31:00 Test Item Value Reference Range Interpretation Comments CULTURE (BEAKER) (test code No growth = 1095) GRAM STAIN RESULT (BEAKER) <1+ WBCs (test code = 1123) GRAM STAIN RESULT (BEAKER) No organisms seen (test code = 59728) SURGICALLY OBTAINED CULTURE + GRAM [id number] 08:19:00 Test Item Value Reference Interpretation Comments Range CULTURE (BEAKER) STENOTROPHOMONAS A 2+ Sten otrophomonas (test code = 1095) MALTOPHILIA maltophil ia Levofloxacin (test S code = 22) Trimethoprim + S Sulfamethoxazole (test code = 47) GRAM STAIN RESULT <1+ WBCs (BEAKER) (test code = 1123) GRAM STAIN RESULT No organisms seen (BEAKER) (test code = 786733) POC-Glucose [id number] 06:47:00 Test Item Value Reference Range Interpretation Comments POC-Glucose Meter (test 102 mg/dL 70-110 : TE STED AT [facility] code = 1538) [address], [facility] [address]: Customer Service Sales Associate/Techni artemio ID = [id number] for Anne Salgado Lab Interpretation (test Normal code = 18743-3) [facility] [id number] 06:47:00 Test Item Value Reference Range Interpretation Comments POC-GLUCOSE METER 102 mg/dL 70-110 : TESTED A T [facility] [address] (BEAKER) (test code [address], = 1538) [facility] [address]: Customer Service Sales Associate/Techni artemio ID = [id number] for Anne Busby Comprehensive metabolic [id number] 06:34:00 Test Item Value Reference Range Interpretation Comments Protein, Total (test 6.1 See_Comment [Autom ated code = 2885-2) message] The system which generated this result transmit merna reference range : 6.0 - 8.5 gm/dL . The reference range was not u sed to interpret th is result as normal/abnormal . Albumin (test code = 2.3 g/dL 3.5-5 L 97163-3) Alkaline Phosphatase 81 U/L 30-115 (test code = 6768-6) Total Bilirubin (test 0.4 mg/dL 0.1-1.2 code = 1975-2) Sodium (test code = 137 meq/L 841-498 8863-2) Potassium (test code 3.7 meq/L 3.6-5.5 = 2823-3) Chloride (test code = 100 meq/L 98-106 2075-0) CO2 (test code = 28 meq/L 20-29 8-9) BUN (test code = 14 mg/dL 10-26 3094-0) Creatinine (test code 2.31 mg/dL 0.5-1.2 H = 2160-0) Glucose (test code = 100 mg/dL 70-110 2345-7) Calcium (test code = 7.5 mg/dL 8.5-10.5 L 20714-4) AST (test code = 15 U/L 5-40 1920-8) ALT (test code = 6 U/L 5-50 1742-6) EGFR (test code = 21 mL/min/1[place]73 [place] [address]-0) NOT ACCURATE CREATININE CLEARANCE IN PREDICTING GLOMERULAR FILTRATION RATE . ESTIMATED GFR I S NOT APPLICABLE FOR DIALYSIS PATIEN TS. ZIA (test code = ZIA) Customer Service Sales Associate ID - ADMIN Lab Interpretation Abnormal (test code = 93907-2) [facility] [id number] 06:34:00 Test Item Value Reference Range Interpretation [...] S NOT APPLICABLE FOR DIALYSIS PATIEN TS. Customer Service Sales Associate ID - ADMINCBC with platelet count + automated [id number] 06:06:00 Test Item Value Reference Range Interpretation Comments WBC (test code = 6690-2) 5.7 See_Comment [A utomated message] The system [employer] Screening generated this result transmitted ref erence range: 4.0 - 10 .0 K/L. The refe rence range was not u sed to interpret this result as normal/abnor mal. RBC (test code = 789-8) 2.41 See_Comment L [Au tomated message] The system [employer] generated this result transmitted ref erence range: 4.00 - 5 .00 M/L. The refe rence range was not u sed to interpret this result as normal/abnor mal. MCHC (test code = 786-4) 30.8 See_Comment L [A utomated message] The system [employer] generated this result transmitted ref erence range: [...] L [Aut omated message] 777-3) The system [employer] generated this result transmitted ref erence range: 150 - 43 0 K/CU MM. The referen ce range was not u sed to interpret this result as normal/abnor mal. MPV (test code = 10.5 fL 6-11.5 40753-7) nRBC (test code = 413) 0 See_Comment [Aut omated message] The system [employer] generated this result transmitted ref erence range: [...] See_Comment [Aut omated message] 670) The system [employer] generated this result transmitted ref erence range: 1.80 - 8 .00 K/L. The refe rence range was not u sed to interpret this result as normal/abnor mal. # Lymphs (test code = 1.66 See_Comment [Auto mated message] 414) The system [employer] generated this result transmitted ref erence range: 1.48 - 4 .50 K/L. The refe rence range was not u sed to interpret this result as normal/abnor mal. # Monos (test code = 0.28 See_Comment [Autom ated message] 415) The system [employer] Scre[employer] generated this result transmitted ref erence range: 0.00 - 1 .30 K/L. The refe rence range was not u sed to interpret this result as normal/abnor mal. # Eos (test code = 416) 0.12 See_Comment [Au tomated message] The system [employer] Scre[employer] generated this result transmitted ref erence range: 0.00 - 0 .50 K/L. The refe rence range was not u sed to interpret this result as normal/abnor mal. # Baso (test code = 417) 0.07 See_Comment [A utomated message] The system [employer] Scre[employer] generated this result transmitted ref erence range: 0.00 - 0 .20 K/L. The refe rence range was not u sed to interpret this result as normal/abnor mal. Immature 0 % 0-0 Granulocytes-Relative (test code = 2801) Lab Interpretation (test Abnormal code = 32688-7) [facility] W/PLT COUNT & AUTO [id number] 06:06:00 Test Item Value Reference Range Interpretation [...] PERCENT (BEAKER) (test code = 2801) POCT-GLUCOSE [id number] 21:02:00 Test Item Value Reference Range Interpretation Comments POC-GLUCOSE METER 167 mg/dL 70-110 H : TESTED A T [facility] [address] (BEAKER) (test code [facility] [address], = 1538) [facility] 77 478: Customer Service Sales Associate/Techni artemio ID = [id number] for Anne Busby POCT-GLUCOSE [id number] 18:12:00 Test Item Value Reference Range Interpretation Comments POC-GLUCOSE METER 121 mg/dL 70-110 H : TESTED A T [facility] [address] (BEAKER) (test code [address], = 1538) [place] [address] 478: Customer Service Sales Associate/Techni artemio ID = [id number] for Cortney Cohen POCT-GLUCOSE [id number] 11:54:00 Test Item Value Reference Range Interpretation Comments POC-GLUCOSE METER 117 mg/dL 70-110 H : TESTED A T [facility] [address] (BEAKER) (test code [address], = 1538) [place] [address] 478: Customer Service Sales Associate/Techni artemio ID = [id number] for Cortney Cohen COMPREHENSIVE METABOLIC [id number] 06:47:00 Test Item Value Reference Range Interpretation [...] S NOT APPLICABLE FOR DIALYSIS PATIEN TS. Customer Service Sales Associate ID - [id number] 06:42:00 Test Item Value Reference Range Interpretation Comments Magnesium (test code = 1.6 mg/dL 1.5-3 19202-7) ZIA (test code = ZIA) Customer Service Sales Associate ID - ADMIN Lab Interpretation (test Normal code = 98613-7) [facility] [id number] 06:42:00 Test Item Value Reference Range Interpretation Comments POC-GLUCOSE METER 101 mg/dL 70-110 : TESTED A T [facility] [address] (BEAKER) (test code [address], = 1538) [facility] 77 478: Customer Service Sales Associate/Techni artemio ID = [id number] for Anne Busby [id number] 06:42:00 Test Item Value Reference Range Interpretation Comments MAGNESIUM (BEAKER) (test code = 1.6 mg/dL 1.5-3.0 627) Customer Service Sales Associate ID - ADMINCBC W/PLT COUNT & AUTO [id number] 06:37:00 Test Item Value Reference Range Interpretation [...] PERCENT (BEAKER) (test code = 2801) POCT-GLUCOSE [id number] 20:24:00 Test Item Value Reference Range Interpretation Comments POC-GLUCOSE METER 155 mg/dL 70-110 H : TESTED A T [facility] 1317 (BEAKER) (test code [facility], = 1538) [facility] 77 478: Customer Service Sales Associate/Techni artemio ID = [id number] for Anne Busby POCT-GLUCOSE [id number] 16:39:00 Test Item Value Reference Range Interpretation Comments POC-GLUCOSE METER 164 mg/dL 70-110 H : Notified RN/MD: TESTED (BEAKER) (test code AT [facility] [address] = 1538) [facility] [address]: Customer Service Sales Associate/Techni artemio ID = [id number] for Alondra Kelley SARS-CoV2/RT-PCR (Asymptomatic ONLY)2019-12-30 15:57:00 Test Item Value Reference Range Interpretation Comments SARS-COV2/RT-PCR Negative Not Detected, (test code = Negative, See 67248-5) external report for linked test SARS-COV-2 [facility] JANET PERFORMING LAB (test code = 06144-9) ZIA (test code = Negative result for [...] of the Act. Fact Sheet for Healthcare Providers:https://www.[employer]/sites/default/f loco/product/documents/F act_Sheet_HC_Providers_L hwp_NYAA-XbG-8.pdf Fact Sheet for Healthcare Patients:https://www.[employer]/sites/default/fi les/product/documents/Fa ct_Sheet_Patients_Lyra_S ARS-CoV-2.pdf Performing Laboratory:[facility] [place] [address] [facility] ([facility])2019-12-30 15:57:00 Test Item Value Reference Range Interpretation Comments SARS-COV2/RT-PCR (test Negative Not Detected, Negative, code = 4072617) See external report for linked test SARS-COV-2 PERFORMING LAB [facility] JANET (test code = 6639241) Negative result for this test determines that [...] 564(g) of the Act.Fact Sheet for Healthcare Providers:https://www.[employer]/sites/default/files/product/documents/Fact_Shee d_JP_Novaosthn_Flrr_FXNS-BqR-5.pdfFact Sheet for Healthcare Patients:https://www.[employer]/sites/default/files/product/ documents/Aqvz_Cndaf_Nnqwwpsv_Dgaw_BMWG-QbG-4.pdfPerforming Laboratory:[facility], [place] [id number] METER 2019-12-30 11:50:00 Test Item Value Reference Range Interpretation Comments POC-GLUCOSE METER 82 mg/dL 70-110 : Notified RN/MD: TESTED (BEAKER) (test code = AT [address]) [place] [address]: Customer Service Sales Associate/Techni artemio ID = [id number] for Alondra Kelley WOUND CULTURE + GRAM [id number] 10:45:00 Test Item Value Reference Interpretation Comments [...] gram negative (BEAKER) (test code rods = 065414) POCT-GLUCOSE [id number] 05:50:00 Test Item Value Reference Range Interpretation Comments POC-GLUCOSE METER 103 mg/dL 70-110 : Notified RN/MD: TESTED (BEAKER) (test code AT [facility] [address] = 1538) [place] [address]: Customer Service Sales Associate/Techni artemio ID = [id number] for Zonia Healy COMPREHENSIVE METABOLIC [id number] 05:44:00 Test Item Value Reference Range Interpretation [...] S NOT APPLICABLE FOR DIALYSIS PATIEN TS. Customer Service Sales Associate ID - ADMINCBC W/PLT COUNT & AUTO [id number] 05:29:00 Test Item Value Reference Range Interpretation [...] PERCENT (BEAKER) (test code = 2801) POCT-GLUCOSE [id number] 21:21:00 Test Item Value Reference Range Interpretation Comments POC-GLUCOSE METER 185 mg/dL 70-110 H : Notified RN/MD: TESTED ([facility]) (test code AT [address] = 1538) [place] [address]: Customer Service Sales Associate/Techni artemio ID = [id number] for Zonia Healy POCT-GLUCOSE [id number] 11:21:00 Test Item Value Reference Range Interpretation Comments POC-GLUCOSE METER 143 mg/dL 70-110 H : Notified RN/MD: TESTED ([facility]) (test code AT [facility] [address] [address] = 1538) [place] [address]: Customer Service Sales Associate/Techni artemio ID = [id number] for Alondra Kelley COMPREHENSIVE METABOLIC [id number] 06:27:00 Test Item Value Reference Range Interpretation [...] S NOT APPLICABLE FOR DIALYSIS PATIEN TS. Customer Service Sales Associate ID - ADMINPOCT-GLUCOSE [id number] 06:21:00 Test Item Value Reference Range Interpretation Comments POC-GLUCOSE METER 73 mg/dL 70-110 : Notified RN/MD: TESTED (BEAKER) (test code = AT [address]) [facility] [address]: Customer Service Sales Associate/Techni artemio ID = [id number] for Zonia Healy CBC W/PLT COUNT & AUTO [id number] 06:00:00 Test Item Value Reference Range Interpretation [...] % 0-0 PERCENT (BEAKER) (test code = 6321) POCT-GLUCOSE [id number] 20:48:00 Test Item Value Reference Range Interpretation Comments POC-GLUCOSE METER 84 mg/dL 70-110 : Notified RN/MD: TESTED (BEAKER) (test code = AT [address]) [place] [address]: Customer Service Sales Associate/Techni artemio ID = [id number] for Zonia Healy POCT-GLUCOSE [id number] 17:51:00 Test Item Value Reference Range Interpretation Comments POC-GLUCOSE METER 59 mg/dL 70-110 L : TESTED A T [facility] [address] (BEAKER) (test code = [address], 1538) [place] [address]: Customer Service Sales Associate/Techni artemio ID = [id number] for Christina r, Berta POCT-GLUCOSE [id number] 13:28:00 Test Item Value Reference Range Interpretation Comments POC-GLUCOSE METER 67 mg/dL 70-110 L : TESTED A T [facility] [address] (BEAKER) (test code = [address] [facility], 1538) [place] [address]358: Customer Service Sales Associate/Techni artemio ID = [id number] for Christina r, Berta POCT-GLUCOSE [id number] 06:04:00 Test Item Value Reference Range Interpretation Comments POC-GLUCOSE METER 94 mg/dL 70-110 : TESTED A T [facility] [address] (BEAKER) (test code = [address], [address]) [place] [address]: Customer Service Sales Associate/Techni artemio ID = [id number] for Anahi Sherman COMPREHENSIVE METABOLIC [id number] 05:35:00 Test Item Value Reference Range Interpretation [...] S NOT APPLICABLE FOR DIALYSIS PATIEN TS. Customer Service Sales Associate ID - ADMINCBC W/PLT COUNT & AUTO [id number] 04:56:00 Test Item Value Reference Range Interpretation [...] PERCENT (BEAKER) (test code = 2801) POCT-GLUCOSE [id number] 20:43:00 Test Item Value Reference Range Interpretation Comments POC-GLUCOSE METER 137 mg/dL 70-110 H : TESTED A T [facility] [address] (BEAKER) (test code [address], = 1538) [facility] [address]: Customer Service Sales Associate/Techni artemio ID = [id number] for Anahi Sherman MR, EXTREMITY, LOWER, WITHOUT CONTRAST, [id number] 16:55:00MRI LEFT FOOT.Unlisted Reason for Exam - [...] MDReport Verified Date/Time: 12/27/2019 16:55:07 Reading Location: [facility] Radiology Reading Room MR lower extremity without IV contrast left [id number] 16:55:00Interface, External Ris In - 12/27/2019 4:57 [...] Ringort Verified Date/Time: 12/27/2019 16:55:07 Reading Location: [facility] Radiology Reading Room Electronically signed by: Adrienne CHU 12/27/2019 04:55 [facility] [id number] 14:19:00 Test Item Value Reference Range Interpretation Comments POC-GLUCOSE METER 232 mg/dL 70-110 H : TESTED A [facility] ([facility]) (test code [facility] [address], = 1538) [facility] [address]: Customer Service Sales Associate/Techni artemio ID = [id number] for Berta Servin CT, CTA AAA, W/ GÓMEZ.EXT.[id number] 11:38:00Bilateral lower extremities Addendum BeginsREPORT STATUS:A I agree with the nonvascular findings with exceptions and emphasis as below:*Moderate right and small left pleural effusions are partially visualized.*Large volume ascites.*Diffuse anasarca*The reflux of contrast into the hepatic veins is concerning for volume overload. Signed: Molly Linares MDReport Verified Date/Time: 12/27/2019 11:38:28 Reading Location: [facility] Diagnostic Imaging Reading Room - [facility] F1 [address]9Add[address] EndsFINAL REPORT CT angiography of [...] identified. However, significant calcification identified of the [place] left SFA, for example at image 516, [...] the right popliteal artery is patent, with bklv-nb-soyofebq diffuse calcification identified with no obstructive lesion [...] However, in the distal left SFA, the [place] artery substantial calcification identified and the stent [...] atherosclerosis identified. 4. In the right, the [place] right SFA is not filled by contrast [...] dictated regarding the non-vascular findings by the Slat Basket Maker Radiologist. Signed: Shlomo Dockeryeport Verified Date/Time: 12/27/2019 07:59:51 Reading Location: [place] [address] [address] Reading Room Protein electrophoresis, serum 2019-12-27 [...] as normal/abnormal . ZIA (test code = Customer Service Sales Associate ID - ZIA) LEONIE Jay Lab Interpretation Abnormal (test code = 89125-7) [facility] HospitalPROTEIN ELECTROPHORESIS, [id number] 09:29:00 Test Item Value Reference Range Interpretation [...] chronic inflammatory response. No monoclonal bands detected. [id number] Rocio Galindo MD (BEAKER) (test code = (electronic signature) 2616) PROTEIN TOTAL SERUM, 6.3 gm/dL 6.0-8.3 SPEP (BEAKER) (test code = 3120) Customer Service Sales Associate ID - LEONIE FCTA AAA and [id number] 07:59:00Interface, External Ris In - 12/27/2019 11:40 AM CDTAddendum BeginsREPORT STATUS:A I agree with the nonvascular findings with exceptions and emphasis as below:*Moderate right andsmall left pleural effusions are partially visualized.*Large volume ascites.*Diffuse anasarca*The reflux of contrast into the hepatic veins is concerning for volume overload. Signed: Molly Linares MDReport Verified Date/Time: 12/27/2019 11:38:28 Reading Location: [facility] Diagnostic Imaging Reading Room - [address] RE[address] CT angiography of the [...] identified. However, significant calcification identified of the [place] left SFA, for example at image 516, [...] the right popliteal artery is patent, with vnpo-pk-zcwkhbxq diffuse calcification identified with no obstructive lesion [...] However, in the distal left SFA, the [place] artery substantial calcification identified and the stent [...] atherosclerosis identified. 4. In the right, the [place] right SFA is not filled by contrast [...] dictated regarding the non-vascular findings by the Slat Basket Maker Radiologist. Signed: Shlomo Dockeryepemily Verified Date/Time: 12/27/2019 07:59:51 Reading Location: [place] [address] [address] Reading Room [facility] RosaPOCT-GLU[facility]SE [id number] 06:56:00 Test Item Value Reference Range Interpretation Comments POC-GLUCOSE METER 39 mg/dL 70-110 LL : Notified RN/: TESTED (BEAKER) (test code = AT [address]) [facility] [address]: Customer Service Sales Associate/Techni artemio ID = [id number] for Anahi Sherman COMPREHENSIVE METABOLIC [id number] 06:15:00 Test Item Value Reference Range Interpretation [...] S NOT APPLICABLE FOR DIALYSIS PATIEN TS. Customer Service Sales Associate ID - ADMINPOCT-GLUCOSE [id number] 06:01:00 Test Item Value Reference Range Interpretation Comments POC-GLUCOSE METER 55 mg/dL 70-110 L : Notified RN/MD: TESTED (BEAKER) (test code = AT [address]LS [address]) [facility] [address]: Customer Service Sales Associate/Techni artemio ID = [id number] for Anahi Sherman CBC W/PLT COUNT & AUTO [id number] 05:44:00 Test Item Value Reference Range Interpretation [...] PERCENT (BEAKER) (test code = 2801) POCT-GLUCOSE [id number] 21:03:00 Test Item Value Reference Range Interpretation Comments POC-GLUCOSE METER 278 mg/dL 70-110 H : Notified RN/MD: TESTED ([facility] (test code AT [facility] [address] = [address]) [address], [place] [address]: Customer Service Sales Associate/Techni artemio ID = [id number] for Anahi Sherman POCT-GLUCOSE [id number] 16:53:00 Test Item Value Reference Range Interpretation Comments POC-GLUCOSE METER 70 mg/dL 70-110 : [facility] (test code = [address] [facility], 1538) [place] [address]: Customer Service Sales Associate/Techni artemio ID = [id number] for Nalini Jean Baptiste POCT-GLUCOSE [id number] 12:11:00 Test Item Value Reference Range Interpretation Comments POC-GLUCOSE METER 97 mg/dL 70-110 : [facility] (test [facility] = [facility] [facility] [facility] [place] [address]: Customer Service Sales Associate/Techni artemio ID = [id number] for Nalini Jean Baptiste POCT-GLUCOSE [id number] 06:21:00 Test Item Value Reference Range Interpretation Comments POC-GLUCOSE METER 71 mg/dL 70-110 : [facility] ([facility] (test [facility] = [address] [facility] [place] [address]: Customer Service Sales Associate/Techni artemio ID = [id number] for Holly Alamo COMPREHENSIVE METABOLIC [id number] 05:50:00 Test Item Value Reference Range Interpretation [...] S NOT APPLICABLE FOR DIALYSIS PATIEN TS. Customer Service Sales Associate ID - ADMINCBC W/PLT COUNT & AUTO [id number] 05:17:00 Test Item Value Reference Range Interpretation [...] (BEAKER) (test code = 2801) Prepare Leuko-Red [id number] 23:54:00 Test Item Value Reference Range Interpretation Comments CROSSMATCH (test code = 2264) COMPATIBLE Unit ABO (test code = O Pos 9876459) UNIT NUMBER (test code = [id number] 934-0) Status (test code = 0555356) TX_TIMEINCHART Blood Bank Product (test code RED BLOOD CELLS = 2263) PRODUCT CODE (test code = I7007G32 933-2) [facility] HospitalPOCT[facility]GLUCOSE [id number] 21:03:00 Test Item Value Reference Range Interpretation Comments POC-GLUCOSE METER 87 mg/dL 70-110 : TESTED A T [facility] [address] (BEAKER) (test code = [address], 15[address]) [place] [address]: Customer Service Sales Associate/Techni artemio ID = [id number] for Holly Alamo POCT-GLUCOSE [id number] 17:12:00 Test Item Value Reference Range Interpretation Comments POC-GLUCOSE METER 79 mg/dL 70-110 : TESTED A T [facility] [address] (BEAKER) (test code = [address], 15[address]) [place] [address]: Customer Service Sales Associate/Techni artemio ID = [id number] for Nalini Jean Baptiste POCT-GLUCOSE [id number] 11:37:00 Test Item Value Reference Range Interpretation Comments POC-GLUCOSE METER 262 mg/dL 70-110 H : TESTED A T [facility] [address] (BEAKER) (test code [address], = 1538) [place] [address]: Customer Service Sales Associate/Techni artemio ID = [id number] for Nalini Jean Baptiste COMPREHENSIVE METABOLIC [id number] 06:29:00 Test Item Value Reference Range Interpretation [...] S NOT APPLICABLE FOR DIALYSIS PATIEN TS. Customer Service Sales Associate ID - ADMINCBC W/PLT COUNT & AUTO [id number] 06:12:00 Test Item Value Reference Range Interpretation [...] PERCENT (BEAKER) (test code = 2801) POCT-GLUCOSE [id number] 06:09:00 Test Item Value Reference Range Interpretation Comments POC-GLUCOSE METER 83 mg/dL 70-110 : Notified RN/MD: TESTED (BEAKER) (test code = AT [facility] L [address]) [facility] [address]: Customer Service Sales Associate/Techni artemio ID = [id number] for Anahi Sherman POCT-GLUCOSE [id number] 16:26:00 Test Item Value Reference Range Interpretation Comments POC-GLUCOSE METER 182 mg/dL 70-110 H : Notified RN/MD: TESTED (BEAKER) ([facility] [address] = 1538) [place] [address]: Customer Service Sales Associate/Techni artemio ID = [id number] for Alondra Kelley [id number] 09:17:00 Test Item Value Reference Range Interpretation Comments Rh Factor (test code = POS 2589) ABO Grouping (test code O PINK TOP 12/24/19 @ 0824 = 2588) [facility] HospitalType and screen, [id number] 07:31:00 Test Item Value Reference Range Interpretation Comments ABO/RH AUTOMATED (BEAKER) (test O POSITIVE ECHO code = 2260) Ab Scrn (test code = 890-4) NEGATIVE ECHO [facility] HospitalCOMPREHENSIVE METABOLIC [id number] 06:42:00 Test Item Value Reference Range Interpretation [...] S NOT APPLICABLE FOR DIALYSIS PATIEN TS. Customer Service Sales Associate ID - ADMINPOCT-GLUCOSE [id number] 06:23:00 Test Item Value Reference Range Interpretation Comments POC-GLUCOSE METER 88 mg/dL 70-110 : TESTED A T [facility] [address] (BEAKER) (test code = [address], 1538) [facility] [address]: Customer Service Sales Associate/Techni artemio ID = [id number] for Anne Busby CBC W/PLT COUNT & AUTO [id number] 06:23:00 Test Item Value Reference Range Interpretation [...] PERCENT (BEAKER) (test code = 2801) POCT-GLUCOSE [id number] 21:38:00 Test Item Value Reference Range Interpretation Comments POC-GLUCOSE METER 126 mg/dL 70-110 H : TESTED A T [facility] [address] (BEAKER) (test code [address], = 1538) [facility] [address]: Customer Service Sales Associate/Techni artemio ID = [id number] for Anne Busby POCT-GLUCOSE [id number] 16:54:00 Test Item Value Reference Range Interpretation Comments POC-GLUCOSE METER 89 mg/dL 70-110 : Notified RN/MD: TESTED (ROBERT) (test code = AT SLS [address]) [place], [facility] [address]: Customer Service Sales Associate/Techni artemio ID = [id number] for Alondra Kelley MR, EXTREMITY, LOWER, JOINT, WITHOUT CONTRAST, [id number] 16:10:00Unlisted Reason for Exam - Click Yes [...] Jordan Verified Date/Time: 12/23/2019 16:10:32 Reading Location: [address] Ortho Consult Reading Room MR lower extremity joint only without IV contrast left [id number] 16:10:00Interface, External Ris In - 12/23/2019 4:12 [...] Jordaneport Verified Date/Time: 12/23/2019 16:10:32 Reading Location: [address] Ortho Consult Reading Room [facility], [facility]RAIN, WITHOUT [id number] 15:43:00Unlisted Reason for Exam - Click Yes [...] Date/Time: 12/23/2019 15:43:24 MR brain without IV [id number] 15:43:00Interface, External Ris In - 12/23/2019 3:45 [...] Berta Muniz MDReport Verified Date/Time: 12/23/2019 15:43:24 [facility])2019-12-23 14:16:00 Test Item Value Reference Range Interpretation Comments SARS-COV2/RT-PCR (test Negative Not Detected, Negative, code = 8855885) See external report for linked test SARS-COV-2 PERFORMING LAB [facility] JANET (test code = 5023445) Negative result for this test determines that [...] 564(g) of the Act.Fact Sheet for Healthcare Providers:https://www.[employer]/sites/default/files/product/documents/Fact_Shee g_RJ_Iaztcnkwt_Wdmr_OMMZ-QrE-5.pdfFact Sheet for Healthcare Patients:https://www.[employer]/sites/default/files/product/ documents/Ozoy_Cvtbp_Qcpukszz_Glgm_YPAU-CzJ-3.pdfPerforming Laboratory:[facility], [place] [address]Ayftp / lambda light chains, [id number] 12:25:00 Test Item Value Reference Interpretation Comments Range [place] Lt Chain,Free 474.4 mg/L 3.3-19.4 H (test code = 63281-9) Lambda Lt 225.6 mg/L 5.7-26.3 H Chain,Free (test code = 59476-0) [place]/Lambda,Free 2.1 0.26-1.65 H Free annabelle a/lambda (test code = ratio in serum of 9669580) normal individu als is 0.26-1.65. Excessproductio n [...] (test code = Performing Lab ZIA) EZ LensVector [facility] [address] [place] [address] Adonis Stein MD, PhD, CORI Lab Interpretation Abnormal (test code = 67254-8) [facility] HospitalPOCT-GLUCOSE [id number] 11:27:00 Test Item Value Reference Range Interpretation Comments POC-GLUCOSE METER 189 mg/dL 70-110 H : Notified RN/MD: TESTED (BEAKER) (test code AT [address] = 1538) [facility] [address]: Customer Service Sales Associate/Techni artemio ID = [id number] for Alondra Kelley ARTERIAL DOPPLER LEGS, [id number] 11:22:00Reason for exam:->non healing ulcer , non [...] MDReport Verified Date/Time: 12/23/2019 11:22:31 Reading Location: [facility] Radiology Reading Room Arterial Doppler Legs [id number] 11:22:00 Interface, External Ris In - 12/23/2019 [...] MDReport Verified Date/Time: 12/23/2019 11:22:31 Reading Location: [facility] Radiology Reading Room [facility] RosaCOMPREHENSIVE METABOLIC [id number] 04:44:00 Test Item Value Reference Range Interpretation [...] S NOT APPLICABLE FOR DIALYSIS PATIEN TS. Customer Service Sales Associate ID - ADMINCBC W/PLT COUNT & AUTO [id number] 04:35:00 Test Item Value Reference Range Interpretation [...] H PERCENT (BEAKER) (test code = 2801) [id number] 04:29:00 Test Item Value Reference Range Interpretation Comments Ammonia (test code = 36 See_Comment [Autom ated 26700-9) message] The system which generated this result transmit merna reference range : 17 - 80 mol/L . The reference range was not u sed to interpret th is result as normal/abnormal . ZIA (test code = ZIA) Customer Service Sales Associate ID - ADMIN Lab Interpretation Normal (test code = 36968-8) [facility] HospitalAMMONIA2020-09-24 04:29:00 Test Item Value Reference Range Interpretation Comments AMMONIA (BEAKER) (test code = 348) 36 mol/L 17-80 Customer Service Sales Associate ID - ADMINPOCT-GLUCOSE [id number] 20:45:00 Test Item Value Reference Range Interpretation Comments POC-GLUCOSE METER 95 mg/dL 70-110 : TESTED A T [facility] [address] (BEAKER) (test code = [address] 15[address]) [place] [address]: Customer Service Sales Associate/Techni artemio ID = [id number] for Anne Busby POCT-GLUCOSE [id number] 17:08:00 Test Item Value Reference Range Interpretation Comments POC-GLUCOSE METER 107 mg/dL 70-110 : TESTED A T [facility] [address] (BEAKER) (test code [address], = 1538) [place] [address]: Customer Service Sales Associate/Techni artemio ID = [id number] for Jordyn Fonseca POCT-GLUCOSE [id number] 11:55:00 Test Item Value Reference Range Interpretation Comments POC-GLUCOSE METER 135 mg/dL 70-110 H : TESTED A T [facility] [address] (BEAKER) (test code [address], = 1538) [place] [address]: Customer Service Sales Associate/Techni artemio ID = [id number] for Jordyn Fonseca ROGRE Titer & [id number] 11:40:00 Test Item Value Reference Range Interpretation Comments ROGER Titer (test code = 28982-9) 1:40 ROGER Pattern (test code = 1781) Speckled [facility] HospitalAnti-Nuclear Antibody (ROGER)2019-12-22 11:40:00 Test Item Value Reference Range Interpretation Comments ROGER (test code = 30499-1) Positive Negative A ZIA (test code = ZIA) Test performed by IFA method. Lab Interpretation (test Abnormal code = 96461-8) [facility] HospitalANTI-NUCLEAR ANTIBODY (ROGER)2019-12-22 11:40:00 Test Item Value Reference Range Interpretation Comments ANTI-NUCLEAR ANTIBODY (ROGER) (BEAKER) Positive Negative A (test code = 418) Test performed by IFA method.ROGER TITER AND [id number] 11:40:00 Test Item Value Reference Range Interpretation Comments ROGER TITER (BEAKER) (test code = :40 1541) ROGER PATTERN (BEAKER) (test code = Speckled 1781) POCT-GLUCOSE [id number] 06:44:00 Test Item Value Reference Range Interpretation Comments POC-GLUCOSE METER 92 mg/dL 70-110 : TESTED A T [address] (BEAKER) (test code = [address], 1538) [facility] [place] [address]: Customer Service Sales Associate/Techni artemio ID = [id number] for Anne Busby COMPREHENSIVE METABOLIC [id number] 06:35:00 Test Item Value Reference Range Interpretation [...] S NOT APPLICABLE FOR DIALYSIS PATIEN TS. Customer Service Sales Associate ID - ADMINCBC W/PLT COUNT & AUTO [id number] 06:16:00 Test Item Value Reference Range Interpretation [...] PERCENT (BEAKER) (test code = 2801) POCT-GLUCOSE [id number] 20:38:00 Test Item Value Reference Range Interpretation Comments POC-GLUCOSE METER 85 mg/dL 70-110 : TESTED A T [facility] [address] (BEAKER) (test code = [address], 1538) [place] [address]: Customer Service Sales Associate/Techni artemio ID = [id number] for Anne Busby POCT-GLUCOSE [id number] 18:14:00 Test Item Value Reference Range Interpretation Comments POC-GLUCOSE METER 112 mg/dL 70-110 H : TESTED A T [facility] [address] (BEAKER) (test code [address], = 1538) [place] [address]: Customer Service Sales Associate/Techni artemio ID = [id number] for Christina r, Berta POCT-GLUCOSE [id number] 13:00:00 Test Item Value Reference Range Interpretation Comments POC-GLUCOSE METER 77 mg/dL 70-110 : TESTED A T [facility] [address] (BEAKER) (test code = [address], 1538) [place] [address]: Customer Service Sales Associate/Techni artemio ID = [id number] for Christina r, Berta POCT-GLUCOSE [id number] 07:32:00 Test Item Value Reference Range Interpretation Comments POC-GLUCOSE METER 60 mg/dL 70-110 L : TESTED A T [facility] [address] (BEAKER) (test code = [address], 1538) [place] [address]: Customer Service Sales Associate/Techni artemio ID = [id number] for Marissa Page COMPREHENSIVE METABOLIC [id number] 06:11:00 Test Item Value Reference Range Interpretation [...] S NOT APPLICABLE FOR DIALYSIS PATIEN TS. Customer Service Sales Associate ID - ADMINC-Reactive [id number] 06:06:00 Test Item Value Reference Range Interpretation Comments CRP (test code = 676) 1.63 mg/dL 0-0.5 H ZIA (test code = ZIA) Customer Service Sales Associate ID - ADMIN Lab Interpretation (test Abnormal code = 34116-3) [facility] HospitalC-REACTIVE [id number] 06:06:00 Test Item Value Reference Range Interpretation Comments C-REACTIVE PROTEIN (BEAKER) (test 1.63 mg/dL 0.00-0.50 H code = 676) Customer Service Sales Associate ID - ADMINPOCT-GLUCOSE [id number] 06:04:00 Test Item Value Reference Range Interpretation Comments POC-GLUCOSE METER 56 mg/dL 70-110 L : Notified RN/MD: TESTED (BEAKER) (test code = AT [address]LS [address]) [place] [address]: Customer Service Sales Associate/Techni artemio ID = [id number] for Nelda Abdi CBC W/PLT COUNT & AUTO [id number] 05:53:00 Test Item Value Reference Range Interpretation [...] (BEAKER) (test code = 2801) U/S, ABDOMINAL, [id number] 22:02:00Reason for exam:->thrombocytopenia / eval for hepatosplenomegalyFINAL [...] MDReport Verified Date/Time: 12/20/2019 22:02:21 US abdomen [id number] 22:02:00Interface, External Ris In - 12/20/2019 10:04 [...] Hever Marin MDReport Verified Date/Time: 12/20/2019 22:02:21 [facility] HospitalPOCT[facility] [id number] 20:36:00 Test Item Value Reference Range Interpretation Comments POC-GLUCOSE METER 74 mg/dL 70-110 : Notified RN/: TESTED (BEAKER) (test code = AT [address]LS [address]) [facility] [address]: Customer Service Sales Associate/Techni artemio ID = [id number] for Nelda Abdi POCT-GLUCOSE [id number] 17:50:00 Test Item Value Reference Range Interpretation Comments POC-GLUCOSE METER 72 mg/dL 70-110 : TESTED A T [address] [address] (BEAKER) (test code = [address] [facility], 1538) [facility] [address]: Customer Service Sales Associate/Techni artemio ID = [id number] for Berta Servin CT, BRAIN, WITHOUT [id number] 16:08:00Unlisted Reason for Exam - Click Yes [...] Date/Time: 12/20/2019 16:08:40 CT brain without IV [id number] 16:08:00Interface, External Ris In - 12/20/2019 4:10 [...] Signed: Berta Muniz Verified Date/Time: 12/20/2019 16:08:40 [facility] HospitalRAD, FOOT, 2 VIEWS, [id number] 15:15:00Reason for exam:->Rule out osteomyelitisShould this be [...] MDReport Verified Date/Time: 12/20/2019 15:15:25 Reading Location: [facility] Radiology Reading Room , FOOT, 2 VIEWS, [id number] 15:15:00Reason for exam:->Rule out osteomyelitisShould this be [...] MDReport Verified Date/Time: 12/20/2019 15:15:25 Reading Location: [facility] Radiology Reading Room XR foot 2 views [id number] 15:15:00Interface, External Ris In - 12/20/2019 3:17 [...] MDReport Verified Date/Time: 12/20/2019 15:15:25 Reading Location: [facility] Radiology Reading Room [facility] HospitalXR foot 2 views [id number] 15:15:00Interface, External Ris In - 12/20/2019 3:17 [...] MDReport Verified Date/Time: 12/20/2019 15:15:25 Reading Location: [facility] Radiology Reading Room [facility] HospitalAMMONIA2020-09-21 14:56:00 Test Item Value Reference Range Interpretation Comments AMMONIA (BEAKER) (test code = 348) 33 mol/L 17-80 Customer Service Sales Associate ID - ADMINBlood gas, [id number] 14:41:00 Test Item Value Reference Range Interpretation Comments pH, Arterial (test code 7.33 7.35-7.45 L = 2744-1) pCO2, Arterial (test 58 See_Comment H [Autom ated message] code = 2019-8) The system [employer] generated this result transmit merna reference range : 35 - 45 mmHg. The reference range was not used to interpret this result as normal/abnormal . pO2, Arterial (test 109 See_Comment H [Automa merna message] code = 2703-7) The system [employer] generated this result transmit merna reference range [...] % Lab Interpretation Abnormal (test code = 85498-5) [facility] HospitalBLOOD GAS, [id number] 14:41:00 Test Item Value Reference Range Interpretation [...] code = 1819) 32.0 % Occult blood, [id number] 11:56:00 Test Item Value Reference Range Interpretation Comments Occult blood (test code = 2335-8) Negative Negative Lab Interpretation (test code = Normal 63574-4) [facility] HospitalOCCULT BLOOD, [id number] 11:56:00 Test Item Value Reference Range Interpretation Comments FECAL OCCULT BLOOD (BEAKER) (test Negative Negative code = 618) POCT-GLUCOSE [id number] 11:39:00 Test Item Value Reference Range Interpretation Comments POC-GLUCOSE METER 88 mg/dL 70-110 : TESTED A T [facility] [address] (BEAKER) (test code = [address], [address]) [facility] 77 478: Customer Service Sales Associate/Techni artemio ID = [id number] for Gifty Phelps Oizszxnsngt2085-03-03 11:22:00 Test Item Value Reference Range Interpretation Comments Haptoglobin (test code = <8 14-258 L 4542-7) ZIA (test code = ZIA) Customer Service Sales Associate ID - LEONIE F Lab Interpretation (test Abnormal code = 80428-2) [facility] 11:22:00 Test Item Value Reference Range Interpretation Comments HAPTOGLOBIN (BEAKER) (test code = < mg/dL 14-258 L 366) Customer Service Sales Associate ID - LEONIE FT4, [id number] 11:01:00 Test Item Value Reference Range Interpretation Comments Free T4 (test code = 0.52 ng/dL 0.9-1.8 L 3024-7) ZIA (test code = ZIA) Customer Service Sales Associate ID - ADMIN Lab Interpretation (test Abnormal code = 90770-4) [facility] Hospital[facility], [id number] 11:01:00 Test Item Value Reference Range Interpretation Comments FREE T4 (BEAKER) (test code = 655) 0.52 ng/dL 0.90-1.80 L Customer Service Sales Associate ID - ADMINPeripheral Blood Smear - Path [id number] 08:19:00 Test Item Value Reference Range Interpretation [...] Griffith M.D. code = 2849) (electronic signature) [facility]PER[facility] - PATHOLOGIST REVIEW 2019-12-20 08:19:00 Test Item Value Reference Range Interpretation Comments RBC MORPHOLOGY Target Cells (BEAKER) (test code = 2846) RBC MORPHOLOGY Basophilic Stippling (BEAKER) (test code = 51806) RBC MORPHOLOGY Nucleated Red Blood Cells (BEAKER) (test code = 53572) PERIPHERAL SMR Normochromic normocytic REVIEW (BEAKER) anemia with a few target (test code = 2640) cells, nucleated RBCs and basophilic stippling. No increase in schistocytes. WBCs normal in number and morphology. Thrombocytopenia with normal platelet morphology. [id number]-[id number]-771 Jovita Griffith M.D. 2 (BEAKER) (test (electronic signature) code = 2849) Vitamin B12 and Gchwse1339-20-26 06:37:00 Test Item Value Reference Range Interpretation Comments Vitamin B12 (test 1431 pg/mL 211-911 H code = 2132-9) Folate (test code = 17.00 ng/mL See_Comment [Automa merna 2284-8) message] The system which generated this result transmit merna reference range : >=5.4. The reference range was not used to interpret this result as normal/abnormal . ZIA (test code = ZIA) Customer Service Sales Associate ID - ADMIN Lab Interpretation Abnormal (test code = 89014-3) [facility] HospitalVITAMIN B12 AND [id number] 06:37:00 Test Item Value Reference Range Interpretation Comments VITAMIN B12 (BEAKER) (test code = 1431 pg/mL 211-911 H 774) FOLATE (BEAKER) (test code = 362) 17.00 ng/mL >=5.4 Customer Service Sales Associate ID - ADMINPOCT-GLUCOSE [id number] 06:32:00 Test Item Value Reference Range Interpretation Comments POC-GLUCOSE METER 79 mg/dL 70-110 : TESTED A T [facility] [address] (BEAKER) (test code = [address], 15[address]) [facility] 77 478: Customer Service Sales Associate/Techni artemio ID = [id number] for Anahi Sherman TSH/Free T4 If Ejtwzylms7464-83-98 06:25:00 Test Item Value Reference Range Interpretation Comments TSH (test code = 21.210 See_Comment H [Automated 22413-7) message] The system which generated this result transmit merna reference range : 0.350 - 5.500 uIU/mL. The reference range was not used to interpret this result as normal/abnormal . ZIA (test code = ZIA) Customer Service Sales Associate ID - ADMIN Lab Interpretation Abnormal (test code = 04411-1) [facility] HospitalFerritin2020-09-[facility] 06:25:00 Test Item Value Reference Range Interpretation Comments Ferritin (test code = 595.00 ng/mL 10-291 H 2276-4) ZIA (test code = ZIA) Customer Service Sales Associate ID - ADMIN Lab Interpretation (test Abnormal code = 64750-7) [facility] HospitalFERRITIN2020-09-21 06:25:00 Test Item Value Reference Range Interpretation Comments FERRITIN (BEAKER) (test code = 595.00 ng/mL 10.00-291.00 H 361) Customer Service Sales Associate ID - ADMINTSH/FREE T4 IF [id number] 06:25:00 Test Item Value Reference Range Interpretation Comments THYROID STIMULATING HORMONE 21.210 uIU/mL 0.350-5.500 H (BEAKER) (test code = 772) Customer Service Sales Associate ID - ADMINPT/zCLI8498-17-25 06:06:00 Test Item Value Reference Interpretation Comments Range Protime (test code = 13.5 See_Comment H [Autom ated 2712-2) message] The system which generated this result transmitted reference range : 9.3 - 12.0 sec. The reference range was not used to interpret this result as normal/abnormal . INR (test code = 1.25 See_Comment [Automated 0931-6) message] The system which generated this result transmitted reference range : <=5.90. The reference range was not used to interpret this result as normal/abnormal . PTT (test code = 38.2 See_Comment H [Automated 92196-9) message] The system which generated this result [...] Output) Lab Interpretation Abnormal (test code = 68938-1) [facility]2020-09-21 06:06:00 Test Item Value Reference Range Interpretation Comments Fibrinogen (test code = 340 mg/dL 266-542 7080-7) ZIA (test code = ZIA) Final Information (Auto Output) Lab Interpretation (test Normal code = 71562-6) [facility]2020-09-21 06:06:00 Test Item Value Reference Range Interpretation Comments FIBRINOGEN LEVEL (BEAKER) (test 340 mg/dL 200-400 code = 658) Final Information (Auto Output)PT/[id number] 06:06:00 Test Item Value Reference Range Interpretation [...] = 2502-3) ZIA (test code = ZIA) Customer Service Sales Associate ID - ADMIN Lab Interpretation (test Abnormal code = 38005-9) [facility] HospitalIRON, TIBC, % SAT. (WITHOUT FERRITIN)2019-12-20 05:59:00 Test Item Value Reference Range Interpretation Comments IRON (BEAKER) (test code = 547) 92.0 ug/dL 45.0-170.0 TOTAL IRON BINDING CAPACITY 151 ug/dL 250-550 L (BEAKER) (test code = 769) IRON % SATURATION (2) (BEAKER) 61 % 20-55 H (test code = 2590) Customer Service Sales Associate ID - ADMINCOMPREHENSIVE METABOLIC [id number] 05:55:00 Test Item Value Reference Range Interpretation [...] S NOT APPLICABLE FOR DIALYSIS PATIEN TS. Customer Service Sales Associate ID - EHBYXO-qfjbc8532-59-21 05:46:00 Test Item Value Reference Range Interpretation Comments D-Dimer, Quant (test 1.09 mg/L <0.50 H code = 96663-7) ZIA (test code = ZIA) REGARDING D-DIMER RESULTS: The 98% NPV (Negative Predictive Value) for DVT/PE exclusion is 0.50 mg/L FEU as suggested by the nutrition intern and as approved by the FDA.Final Information (Auto Output) Lab Interpretation (test Abnormal code = 51772-9) [facility] HospitalD-[id number] 05:46:00 Test Item Value Reference Range Interpretation Comments D-DIMER QUANTITATIVE (BEAKER) (test 1.09 mg/L <0.50 H code = 671) REGARDING D-DIMER RESULTS: The 98% NPV (Negative Predictive Value) for DVT/PE exclusion is 0.50 mg/LFEU as suggested by the nutrition intern and as approved by the FDA.Final Information (Auto Output)Reticulocyte [id number] 05:42:00 Test Item Value Reference Range Interpretation Comments % Retic (test code = 61004-8) 5.9 % 0.4-2.9 H Lab Interpretation (test code = Abnormal 20597-8) [facility] HospitalRETICULOCYTE [id number] 05:42:00 Test Item Value Reference Range Interpretation Comments RETICULOCYTE COUNT PCT (BEAKER) (test 5.9 % 0.4-2.9 H code = 575) CBC W/PLT COUNT & AUTO [id number] 05:33:00 Test Item Value Reference Range Interpretation [...] U/L 107-206 ZIA (test code = ZIA) Customer Service Sales Associate ID - ADMIN Lab Interpretation (test Normal code = 99451-8) [facility] HospitalLACTATE DEHYDROGENASE (LDH)2019-12-19 21:19:00 Test Item Value Reference Range Interpretation Comments LACTATE DEHYDROGENASE (BEAKER) (test 178 U/L 107-206 code = 635) Customer Service Sales Associate ID - ADMINPOCT-GLUCOSE [id number] 20:47:00 Test Item Value Reference Range Interpretation Comments POC-GLUCOSE METER 102 mg/dL 70-110 : TESTED A T [facility] [address] (BEAKER) (test code [address], = 1538) [place] [address] 478: Customer Service Sales Associate/Techni artemio ID = [id number] for Anahi Sherman POCT-GLUCOSE [id number] 16:18:00 Test Item Value Reference Range Interpretation Comments POC-GLUCOSE METER 96 mg/dL 70-110 : TESTED A T [facility] [address] (BEAKER) (test code = [address], 15[address]) [place] [address] 478: Customer Service Sales Associate/Techni artemio ID = [id number] for Nalini Jean Baptiste Basic Metabolic [id number] 06:26:00 Test Item Value Reference Range Interpretation Comments Sodium (test code = 138 meq/L 202-540 3618-2) Potassium (test code = 3.9 meq/L 3.6-5.5 2823-3) Chloride (test code = 99 meq/L 98-106 2075-0) CO2 (test code = 30 meq/L 20-29 H 2028-9) BUN (test code = 47 mg/dL 10-26 H 3094-0) Creatinine (test code 3.04 mg/dL 0.5-1.2 H = 2160-0) Glucose (test code = 82 mg/dL 70-110 2345-7) Calcium (test code = 7.9 mg/dL 8.5-10.5 L 27833-2) EGFR (test code = 15 mL/min/1.73 [place] [address]-3) NOT ACCURATE CREATININE CLEARANCE IN PREDICTING GLOMERULAR FILTRATION RATE . ESTIMATED GFR I S NOT APPLICABLE FOR DIALYSIS PATIENTS. ZIA (test code = ZIA) Customer Service Sales Associate ID - ADMIN Lab Interpretation Abnormal (test code = 56916-3) [facility] METABOLIC [id number] 06:26:00 Test Item Value Reference Range Interpretation [...] S NOT APPLICABLE FOR DIALYSIS PATIEN TS. Customer Service Sales Associate ID - ADMINCBC W/PLT COUNT & AUTO [id number] 06:04:00 Test Item Value Reference Range Interpretation [...] PERCENT (BEAKER) (test code = 2801) POCT-GLUCOSE [id number] 05:35:00 Test Item Value Reference Range Interpretation Comments POC-GLUCOSE METER 85 mg/dL 70-110 : Notified RN/MD: TESTED ([facility]) (test code = AT [facility] [address] [address]) [place] [address]: Customer Service Sales Associate/Techni artemio ID = [id number] for Niraj Zonia POCT-GLUCOSE [id number] 21:46:00 Test Item Value Reference Range Interpretation Comments POC-GLUCOSE METER 125 mg/dL 70-110 H : Notified RN/MD: TESTED ([facility]) (test code AT [facility] [address]) [place] [address]: Customer Service Sales Associate/Techni artemio ID = [id number] for Keen , Zonia POCT-GLUCOSE [id number] 16:17:00 Test Item Value Reference Range Interpretation Comments POC-GLUCOSE METER 103 mg/dL 70-110 : TESTED A T [facility] [address] (BEAKER) (test code [address], = 1538) [place] [address] 478: Customer Service Sales Associate/Techni artemio ID = [id number] for Rachelle Jean Baptisteea POCT-GLUCOSE [id number] 07:56:00 Test Item Value Reference Range Interpretation Comments POC-GLUCOSE METER 111 mg/dL 70-110 H : TESTED A T [facility] [address] (BEAKER) (test code [address], = 1538) [place] [address] 478: Customer Service Sales Associate/Techni artemio ID = [id number] for Akhil hurtado, Rachelleea POCT-GLUCOSE [id number] 06:25:00 Test Item Value Reference Range Interpretation Comments POC-GLUCOSE METER 57 mg/dL 70-110 L : TESTED A T [facility] [address] (BEAKER) (test code = [address], 15[address]) [place] [address] 478: Customer Service Sales Associate/Techni artemio ID = [id number] for Brow n, Anne POCT-GLUCOSE [id number] 21:55:00 Test Item Value Reference Range Interpretation Comments POC-GLUCOSE METER 76 mg/dL 70-110 : TESTED A T [facility] [address] (BEAKER) (test code = [address], 15[address]) [place] [address] 478: Customer Service Sales Associate/Techni artemio ID = [id number] for Brow n, Anne POCT-GLUCOSE [id number] 18:03:00 Test Item Value Reference Range Interpretation Comments POC-GLUCOSE METER 81 mg/dL 70-110 : TESTED A T [facility] [address] (BEAKER) (test code = [address], 15[address]) [place] [address] 478: Customer Service Sales Associate/Techni artemio ID = [id number] for Abrahamadonis toro, Ericka POCT-GLUCOSE [id number] 12:33:00 Test Item Value Reference Range Interpretation Comments POC-GLUCOSE METER 73 mg/dL 70-110 : TESTED A T [facility] [address] (BEAKER) (test code = [address], 1538) [place] [address] 478: Customer Service Sales Associate/Techni artemio ID = [id number] for Kathryn Boltonsa Hepatitis B surface [id number] 10:49:00 Test Item Value Reference Range Interpretation Comments Hep B S Ab (test code <8.0 See_Comment [Auto mated = 10169-8) message] The system which generated this result transmit merna reference range : <8.0 mIU/mL. e reference range was not used to interpret this result as normal/abnormal . ZIA (test code = ZIA) Customer Service Sales Associate ID Bijal Jay Lab Interpretation Normal (test code = 69928-8) [facility] B SURFACE [id number] 10:49:00 Test Item Value Reference Range Interpretation Comments HEPATITIS B SURFACE ANTIBODY < mIU/mL <8.0 (BEAKER) (test code = 647) Customer Service Sales Associate ID - LEONIE FHepatitis B core antibody, [id number] 10:43:00 Test Item Value Reference Range Interpretation Comments Hep B Core Total Ab Nonreactive Nonreactive (test code = 11702-6) ZIA (test code = ZIA) Customer Service Sales Associate ID Bijal Jay Lab Interpretation (test Normal code = 85446-4) [facility] C [id number] 10:43:00 Test Item Value Reference Range Interpretation Comments Hepatitis C Ab (test Nonreactive Nonreactive code = 76802-0) ZIA (test code = ZIA) Customer Service Sales Associate ID Bijal Jay Lab Interpretation (test Normal code = 23379-1) [facility] C [id number] 10:43:00 Test Item Value Reference Range Interpretation Comments HEPATITIS C ANTIBODY (BEAKER) Nonreactive Nonreactive (test code = 367) Customer Service Sales Associate ID - LEONIE FHEPATITIS B CORE ANTIBODY, [id number] 10:43:00 Test Item Value Reference Range Interpretation Comments HEPATITIS B CORE TOTAL ANTIBODY Nonreactive Nonreactive (BEAKER) (test code = 497) Customer Service Sales Associate ID Bijal HADLEY FPOCT-GLUCOSE [id number] 06:31:00 Test Item Value Reference Range Interpretation Comments POC-GLUCOSE METER 67 mg/dL 70-110 L : TESTED A T [facility] [address] (BEAKER) (test code = [address], 1538) [facility] 77 478: Customer Service Sales Associate/Techni artemio ID = [id number] for Anne Busby COMPREHENSIVE METABOLIC [id number] 05:10:00 Test Item Value Reference Range Interpretation [...] S NOT APPLICABLE FOR DIALYSIS PATIEN TS. Customer Service Sales Associate ID - ADMINCBC W/PLT COUNT & AUTO [id number] 04:36:00 Test Item Value Reference Range Interpretation [...] PERCENT (BEAKER) (test code = 2801) POCT-GLUCOSE [id number] 21:14:00 Test Item Value Reference Range Interpretation Comments POC-GLUCOSE METER 79 mg/dL 70-110 : TESTED A T [facility] [address] (BEAKER) (test code = [address], 1538) [facility] 77 478: Customer Service Sales Associate/Techni artemio ID = [id number] for Anne Busby POCT-GLUCOSE [id number] 18:35:00 Test Item Value Reference Range Interpretation Comments POC-GLUCOSE METER 68 mg/dL 70-110 L : Notified RN/MD: TESTED ([facility]) (test code = AT [facility] L [address]) [place] [address]: Customer Service Sales Associate/Techni artemio ID = [id number] for Alondra Kelley SARS-COV2/RT-PCR ([facility])2019-12-16 17:53:00 Test Item Value Reference Range Interpretation Comments SARS-COV2/RT-PCR (test Negative Not Detected, Negative, code = 5470676) See external report for linked test SARS-COV-2 PERFORMING LAB [facility] (test code = 8264944) Negative result for this test determines that [...] 564(g) of the Act.Fact Sheet for Healthcare Providers:https://www.[employer]/sites/default/files/product/documents/Fact_Troy ortizn_PM_Igveeootu_Lyqa_WUJZ-XlY-3.pdfFact Sheet for Healthcare Patients:https://www.[employer]/sites/default/files/product/ documents/Vkrw_Ynikm_Xghlwlfv_Wwig_UCNX-ZxW-0.pdfPerforming Laboratory:[facility], [place] [address]Oxsvwadho B surface [id number] 16:57:00 Test Item Value Reference Range Interpretation Comments HBsAg Screen (test code = Nonreactive Nonreactive 5195-3) ZIA (test code = ZIA) Customer Service Sales Associate ID - ADMIN Lab Interpretation (test Normal code = 15693-4) [facility]HEPAT[facility]IS B SURFACE [id number] 16:57:00 Test Item Value Reference Range Interpretation Comments HEPATITIS B SURFACE ANTIGEN (2) Nonreactive Nonreactive (BEAKER) (test code = 2585) Customer Service Sales Associate ID - ADMINANG, TUNNELED CATHETER [id number] 15:06:00Reason for Central Line/PICC?->Need for hemodialysis accessReason [...] the patient's medical record by the nurse. Motorcoach Driver: Soto Arias M.D. Bulb Brander: none. Approach: Right internal jugular vein Estimated [...] needle into the right atrium. A 4 Iranian micropuncture sheath was placed and a 0.035 wire was advanced into the IVC. A subcutaneous tunnel was created in the left anterior chest wall by blunt dissection. A 23 cm tip to cuff 15.5 Iranian Duraflow 2 catheter was brought through the [...] Arias MDReport Verified Date/Time: 12/16/2019 15:06:45Reading Location: [facility] Radiology Reading Room IR Tunneled Catheter [id number] 15:06:00 Interface, External Ris In - 12/16/2019 [...] the patient's medical record by the nurse. Motorcoach Driver: Roberto Carlos Carroll istant: none. Approach: Right [...] A 23 cm tip to cuff 15.5 Iranian Duraflow 2 catheter was brought through the [...] MDReport Verified Date/Time: 12/16/2019 15:06:45 Reading Location: [facility] Radiology Reading [facility] [id number] 14:59:00 Test Item Value Reference Range Interpretation Comments POC-GLUCOSE METER 70 mg/dL 70-110 : Notified RN/MD: [facility] (test code = AT [facility] [address]) [facility] [address]: Customer Service Sales Associate/Techni artemio ID = [id number] for Alondra Kelley POCT-GLUCOSE [id number] 11:13:00 Test Item Value Reference Range Interpretation Comments POC-GLUCOSE METER 72 mg/dL 70-110 : Notified RN/MD: TESTED ([facility]) (test code = AT [facility] L [address]) [facility] [address]: Customer Service Sales Associate/Techni artemio ID = [id number] for Syeda Kelleyly RAD, CHEST, 1 VIEW, NON [id number] 09:20:00Reason for exam:->fallShould this be performed at [...] MDReport Verified Date/Time: 12/16/2019 09:20:06 Reading Location: [facility] Radiology Reading Room XR chest 1 view portable / [id number] 09:20:00Interface, External Ris In - 12/16/2019 9:22 [...] MDReport Verified Date/Time: 12/16/2019 09:20:06 Reading Location: [facility] Radiology Reading Room Electronically yeimi d by: SOTO ARIAS MD on 12/16/2019 09:20 [facility] POCT-GLUCOSE [id number] 06:03:00 Test Item Value Reference Range Interpretation Comments POC-GLUCOSE METER 74 mg/dL 70-110 : Notified RN/MD: TESTED (BEAKER) (test code = AT [facility] [address]) [facility] [address]: Customer Service Sales Associate/Techni artemio ID = [id number] for Zonia Healy BASIC METABOLIC [id number] 05:08:00 Test Item Value Reference Range Interpretation [...] S NOT APPLICABLE FOR DIALYSIS PATIEN TS. Customer Service Sales Associate ID - ADMINProthrombin time/[id number] 05:01:00 Test Item Value Reference Interpretation Comments Range Protime (test code = 14.1 See_Comment H [Autom ated 7792-2) message] The system which generated this result transmitted reference range : 9.3 - 12.0 sec. The reference range was not used to interpret this result as normal/abnormal . INR (test code = 1.31 See_Comment [Automated 0221-6) message] The system which generated this result [...] Output) Lab Interpretation Abnormal (test code = 81393-8) [facility] HospitalPROTHROMBIN TIME/[id number] 05:01:00 Test Item Value Reference Range Interpretation [...] Information (Auto Output)CBC W/PLT COUNT & AUTO [id number] 04:46:00 Test Item Value Reference Range Interpretation [...] PERCENT (BEAKER) (test code = 2801) POCT-GLUCOSE [id number] 17:13:00 Test Item Value Reference Range Interpretation Comments POC-GLUCOSE METER 220 mg/dL 70-110 H TESTED AT [place] [address] ([facility]) (test code = [facility] 1538) [address] BASIC METABOLIC [id number] 15:47:00 Test Item Value Reference Range Interpretation [...] NOT APPLICABLE FOR DIALYSIS PATIEN TS. POCT-GLUCOSE [id number] 11:30:00 Test Item Value Reference Range Interpretation Comments POC-GLUCOSE METER 268 mg/dL 70-110 H TESTED AT [place] [address] ([facility]) (test code = [facility] 1538) [address] POCT-GLUCOSE [id number] 07:08:00 Test Item Value Reference Range Interpretation Comments POC-GLUCOSE METER 208 mg/dL 70-110 H TESTED AT [place] [address] ([facility]) (test code = [facility] 1538) [address] CALCIUM, [id number] 06:47:00 Test Item Value Reference Range Interpretation Comments CALCIUM IONIZED (BEAKER) (test 1.11 mmol/L 1.12-1.27 L code = 698) PH, BLOOD (BEAKER) (test code = 7.40 1810) BASIC METABOLIC [id number] 06:40:00 Test Item Value Reference Range Interpretation [...] S NOT APPLICABLE FOR DIALYSIS PATIEN TS. [id number] 06:33:00 Test Item Value Reference Range Interpretation Comments PHOSPHORUS (BEAKER) (test code = 5.1 mg/dL 2.3-4.7 H 604) [id number] 06:33:00 Test Item Value Reference Range Interpretation Comments MAGNESIUM (BEAKER) (test code = 2.0 mg/dL 1.6-2.6 627) LACTIC ACID, VENOUS, WHOLE [id number] 06:02:00 Test Item Value Reference Range Interpretation Comments LACTATE BLOOD VENOUS (2) (BEAKER) 0.8 mmol/L 0.5-2.2 (test code = 2872) Effective 08/02/2015: Units/Reference Range ChangeNew: 0.5-2.2 mmol/L Previous: 5-20 mg/dLCBC W/PLT COUNT & AUTO [id number] 05:54:00 Test Item Value Reference Range Interpretation [...] PERCENT (BEAKER) (test code = 2801) POCT-GLUCOSE [id number] 21:30:00 Test Item Value Reference Range Interpretation Comments POC-GLUCOSE METER 248 mg/dL 70-110 H TESTED AT [place] [address] ([facility]) (test code = JULIANO Osborne [place] 1538) [address] RAD, [id number] 21:22:00Reason for exam:->fall, tailbone painFINAL REPORT RAD, [...] MDReport Verified Date/Time: 09/04/2017 21:22:03 Reading Location: [address] Reading Room POCT-GLUCOSE [id number] 17:37:00 Test Item Value Reference Range Interpretation Comments POC-GLUCOSE METER 222 mg/dL 70-110 H TESTED AT [place] [address] ([facility]) (test code = JULIANO Osborne [place] 1538) [address] POCT-GLUCOSE [id number] 13:55:00 Test Item Value Reference Range Interpretation Comments POC-GLUCOSE METER 194 mg/dL 70-110 H TESTED AT [place] [address] ([facility]) (test code = JULIANO Osborne [facility] 1538) [address] POCT-GLUCOSE [id number] 12:34:00 Test Item Value Reference Range Interpretation Comments POC-GLUCOSE METER 229 mg/dL 70-110 H TESTED AT [place] [address] ([facility]) (test code = [address] [place] 1538) [address] POCT-GLUCOSE [id number] 08:00:00 Test Item Value Reference Range Interpretation Comments POC-GLUCOSE METER 159 mg/dL 70-110 H TESTED AT [facility] 67[address] (BEAKER) (test code = [place] 1539) [address] CALCIUM, [id number] 06:00:00 Test Item Value Reference Range Interpretation Comments CALCIUM IONIZED (BEAKER) (test 1.05 mmol/L 1.12-1.27 L code = 698) PH, BLOOD (BEAKER) (test code = 7.45 1810) [id number] 05:59:00 Test Item Value Reference Range Interpretation Comments PHOSPHORUS (BEAKER) (test code = 4.8 mg/dL 2.3-4.7 H 604) [id number] 05:59:00 Test Item Value Reference Range Interpretation Comments MAGNESIUM (BEAKER) (test code = 2.0 mg/dL 1.6-2.6 627) BASIC METABOLIC [id number] 05:59:00 Test Item Value Reference Range Interpretation [...] = 380) CBC W/PLT COUNT & AUTO [id number] 05:32:00 Test Item Value Reference Range Interpretation [...] 417) IMMATURE GRANULOCYTES-RELATIVE 0 % 0-1 PERCENT ([facility]) (test code = 2801) POCT-GLUCOSE [id number] 20:36:00 Test Item Value Reference Range Interpretation Comments POC-GLUCOSE METER 211 mg/dL 70-110 H TESTED AT [place] [address] ([facility]) (test code = JULIANO Osborne [facility] 1538) [address] CREATININE, RANDOM [id number] 19:55:00 Test Item Value Reference Range Interpretation Comments CREATININE URINE (BEAKER) (test 16.1 mg/dL code = 375) Reference Range: No NormalsPROTEIN, RANDOM [id number] 19:55:00 Test Item Value Reference Range Interpretation Comments PROTEIN, URINE (BEAKER) (test code 102 mg/dL 0-14 H = 1569) POCT-GLUCOSE [id number] 18:04:00 Test Item Value Reference Range Interpretation Comments POC-GLUCOSE METER 177 mg/dL 70-110 H TESTED AT [place] [address] ([facility]) (test code = JULIANO Osborne [facility] 1538) [address] POCT-GLUCOSE [id number] 11:59:00 Test Item Value Reference Range Interpretation Comments POC-GLUCOSE METER 244 mg/dL 70-110 H TESTED AT [place] [address] ([facility]) (test code = JULIANO Osborne [facility] 1538) [address] POCT-GLUCOSE [id number] 07:53:00 Test Item Value Reference Range Interpretation Comments POC-GLUCOSE METER 160 mg/dL 70-110 H TESTED AT [place] [address] ([facility]) (test code = JULIANO Osborne [facility] 1538) [address] BASIC METABOLIC [id number] 05:29:00 Test Item Value Reference Range Interpretation [...] S NOT APPLICABLE FOR DIALYSIS PATIEN TS. [id number] 05:21:00 Test Item Value Reference Range Interpretation Comments MAGNESIUM (BEAKER) (test code = 2.1 mg/dL 1.6-2.6 627) HEPATIC FUNCTION [id number] 05:21:00 Test Item Value Reference Range Interpretation [...] code = 23 U/L 6-55 347) TROPONIN [id number] 05:18:00 Test Item Value Reference Range Interpretation [...] PERCENT (BEAKER) (test code = 2801) TROPONIN [id number] 23:40:00 Test Item Value Reference Range Interpretation [...] acidosis, acute neurological disease, and persistent tachyarrhythmia.POCT-GLUCOSE [id number] 22:51:00 Test Item Value Reference Range Interpretation Comments POC-GLUCOSE METER 214 mg/dL 70-110 H TESTED AT [facility] 6720 (ROBERT) (test code = JULIANO [place] 1538) [address] RAD, CHEST, 1 VIEW, NON [id number] 21:42:00Reason for exam:->CHEST PAINShould this be performed at the bedside?->YesFINAL REPORT RAD, CHEST, 1 VIEW, NON DEPT INDICATION: CHEST PAIN COMPARISON: Chest x-ray 4 weeks ago TECHNIQUE: Single frontal view of the chest. IMPRESSION:Cardiomegaly.Mild pulmonary interstitial edema with a small right- sided effusion.No acute osseous abnormality. Signed: Dario Abraham MDReport Verified Date/Time: 09/02/2017 21:42:11 Reading Location: [address] Reading Room CREATININE, RANDOM [id number] 21:10:00 Test Item Value Reference Range Interpretation Comments CREATININE URINE (BEAKER) (test 35.5 mg/dL code = 375) Reference Range: No NormalsSODIUM, RANDOM [id number] 21:10:00 Test Item Value Reference Range Interpretation Comments SODIUM URINE (BEAKER) (test code = 80 meq/L 243) Reference Range: No NormalsURINALYSIS W/ [id number] 20:59:00 Test Item Value Reference Range Interpretation [...] code = 514) SOURCE(BEAKER) (test code = 3435) BASIC METABOLIC [id number] 16:49:00 Test Item Value Reference Range Interpretation [...] S NOT APPLICABLE FOR DIALYSIS PATIEN TS. [id number] 16:38:00 Test Item Value Reference Range Interpretation [...] (BEAKER) (test code = 700) BASIC METABOLIC [id number] 13:43:00 Test Item Value Reference Range Interpretation [...] NOT APPLICABLE FOR DIALYSIS PATIEN TS. POCT-GLUCOSE [id number] 12:44:00 Test Item Value Reference Range Interpretation Comments POC-GLUCOSE METER 283 mg/dL 70-110 H TESTED AT [facility] 6720 (BEAKER) (test code = JULIANO [place] 1538) [address] CALCIUM, [id number] 07:03:00 Test Item Value Reference Range Interpretation Comments CALCIUM IONIZED (BEAKER) (test 1.02 mmol/L 1.12-1.27 L code = 698) PH, BLOOD (BEAKER) (test code = 7.43 1810) [id number] 05:28:00 Test Item Value Reference Range Interpretation Comments PHOSPHORUS (BEAKER) (test code = 3.3 mg/dL 2.3-4.7 604) [id number] 05:28:00 Test Item Value Reference Range Interpretation Comments MAGNESIUM (BEAKER) (test code = 1.5 mg/dL 1.6-2.6 L 627) BASIC METABOLIC [id number] 05:28:00 Test Item Value Reference Range Interpretation [...] 697) EGFR (BEAKER) (test 39 mL/min/1.73 ESTIMA EMRNA GFR IS code = 1092) sq m NOT ACCURATE CREATININE CLEARANCE IN PREDICTING GLOMERULAR FILTRATION RATE . ESTIMATED GFR I S NOT APPLICABLE FOR DIALYSIS PATIEN TS. CBC W/PLT COUNT & AUTO [id number] 05:06:00 Test Item Value Reference Range Interpretation [...] PERCENT (BEAKER) (test code = 2801) POCT-GLUCOSE [id number] 21:08:00 Test Item Value Reference Range Interpretation Comments POC-GLUCOSE METER 202 mg/dL 70-110 H TESTED AT [facility] 6720 (BEAKER) (test code = [facility] 1538) [address] POCT-GLUCOSE [id number] 16:50:00 Test Item Value Reference Range Interpretation Comments POC-GLUCOSE METER 287 mg/dL 70-110 H TESTED AT [facility] 6720 ([facility]) (test code = [facility] 1538) [address] POCT-GLUCOSE [id number] 12:21:00 Test Item Value Reference Range Interpretation Comments POC-GLUCOSE METER 213 mg/dL 70-110 H TESTED AT [facility] 6720 ([facility]) (test code = [facility] 1538) [address] POCT-GLUCOSE [id number] 08:28:00 Test Item Value Reference Range Interpretation Comments POC-GLUCOSE METER 178 mg/dL 70-110 H TESTED AT [facility] 6720 ([facility]) (test code = [facility] 1538) [address] CALCIUM, [id number] 07:06:00 Test Item Value Reference Range Interpretation Comments CALCIUM IONIZED (BEAKER) (test 0.99 mmol/L 1.12-1.27 L code = 698) PH, BLOOD (BEAKER) (test code = 7.42 1810) [id number] 05:37:00 Test Item Value Reference Range Interpretation Comments PHOSPHORUS (BEAKER) (test code = 3.5 mg/dL 2.3-4.7 604) [id number] 05:37:00 Test Item Value Reference Range Interpretation Comments MAGNESIUM (BEAKER) (test code = 1.6 mg/dL 1.6-2.6 627) BASIC METABOLIC [id number] 05:37:00 Test Item Value Reference Range Interpretation [...] PATIEN TS. CBC W/PLT COUNT & AUTO [id number] 05:07:00 Test Item Value Reference Range Interpretation [...] PERCENT (BEAKER) (test code = 2801) POCT-GLUCOSE [id number] 21:24:00 Test Item Value Reference Range Interpretation Comments POC-GLUCOSE METER 255 mg/dL 70-110 H TESTED AT [place] [address] ([facility]) (test code = [facility] Dylon [facility] 1538) [address] POCT-GLUCOSE [id number] 17:11:00 Test Item Value Reference Range Interpretation Comments POC-GLUCOSE METER 244 mg/dL 70-110 H TESTED AT [place] [address] ([facility]) (test code = [facility] D[place] [facility] 1538) [address] POCT-GLUCOSE [id number] 11:54:00 Test Item Value Reference Range Interpretation Comments POC-GLUCOSE METER 209 mg/dL 70-110 H TESTED AT [place] [address] ([facility]) (test code = [facility] Dylon [facility] 1538) [address] POCT-GLUCOSE [id number] 08:15:00 Test Item Value Reference Range Interpretation Comments POC-GLUCOSE METER 132 mg/dL 70-110 H TESTED AT [place] [address] ([facility]) (test code = [facility] Dylon [facility] 1538) [address] RAD, CHEST, 1 VIEW, NON [id number] 07:44:00Reason for exam:->edemaShould this be performed at the bedside?->YesFINAL REPORT Chest one view AP 08/07/2017 7:44 AM CLINICAL INDICATION: edema COMPARISON: 05/31/2017 IMPRESSION: Cardiomediastinal contours are stable. There is mild pulmonary edema,asymmetric to the right. There are trace bilateral pleural effusions, with bibasilar linear atelectasis. Sternotomy wires remain midline. Signed: Regan Cespedes Verified Date/Time: 08/07/2017 07:44:22 Reading Location: [facility] Reading Room [id number] 05:30:00 Test Item Value Reference Range Interpretation Comments FERRITIN (BEAKER) (test code = 361) 87 ng/mL 5-275 CBC W/PLT COUNT & AUTO [id number] 05:21:00 Test Item Value Reference Range Interpretation [...] % 20-55 L (test code = 2590) [id number] 05:11:00 Test Item Value Reference Range Interpretation Comments PHOSPHORUS (BEAKER) (test code = 3.6 mg/dL 2.3-4.7 604) [id number] 05:11:00 Test Item Value Reference Range Interpretation Comments MAGNESIUM (BEAKER) (test code = 2.0 mg/dL 1.6-2.6 627) BASIC METABOLIC [id number] 05:11:00 Test Item Value Reference Range Interpretation [...] H (BEAKER) (test code = 700) CALCIUM, [id number] 04:58:00 Test Item Value Reference Range Interpretation Comments CALCIUM IONIZED (BEAKER) (test 1.04 mmol/L 1.12-1.27 L code = 698) PH, BLOOD (BEAKER) (test code = 7.41 1810) RETICULOCYTE [id number] 04:51:00 Test Item Value Reference Range Interpretation Comments RETICULOCYTE COUNT PCT (BEAKER) (test 1.2 % 0.5-1.7 code = 575) POCT-GLUCOSE [id number] 20:49:00 Test Item Value Reference Range Interpretation Comments POC-GLUCOSE METER 202 mg/dL 70-110 H TESTED AT [facility] 6720 (BEAKER) (test code = JULIANO Obsorne [facility] 1538) [address] CREATININE, RANDOM [id number] 18:38:00 Test Item Value Reference Range Interpretation Comments CREATININE URINE (BEAKER) (test 56.3 mg/dL code = 375) Reference Range: No NormalsPROTEIN, RANDOM [id number] 18:38:00 Test Item Value Reference Range Interpretation Comments PROTEIN, URINE (BEAKER) (test code 189 mg/dL 0-14 H = 1569) URINALYSIS W/ [id number] 18:34:00 Test Item Value Reference Range Interpretation [...] 516) SOURCE(BEAKER) (test code = Urine, Voided 6119) POCT-GLUCOSE [id number] 17:38:00 Test Item Value Reference Range Interpretation Comments POC-GLUCOSE METER 143 mg/dL 70-110 H TESTED AT [place] [address] (BEAKER) (test code = JULIANO [place] 1538) [address] POCT-GLUCOSE [id number] 12:30:00 Test Item Value Reference Range Interpretation Comments POC-GLUCOSE METER 218 mg/dL 70-110 H TESTED AT [place] [address] (BEAKER) (test code = JULIANO [place] 1538) [address] POCT-GLUCOSE [id number] 08:00:00 Test Item Value Reference Range Interpretation Comments POC-GLUCOSE METER 134 mg/dL 70-110 H TESTED AT [place] [address] (BEAKER) (test code = JULIANO [place] 1538) [address] CBC W/PLT COUNT & AUTO [id number] 04:23:00 Test Item Value Reference Range Interpretation [...] (BEAKER) (test code = 2801) BASIC METABOLIC [id number] 04:13:00 Test Item Value Reference Range Interpretation [...] S NOT APPLICABLE FOR DIALYSIS PATIEN TS. [id number] 04:10:00 Test Item Value Reference Range Interpretation Comments PHOSPHORUS (BEAKER) (test code = 4.9 mg/dL 2.3-4.7 H 604) [id number] 04:10:00 Test Item Value Reference Range Interpretation Comments MAGNESIUM (BEAKER) (test code = 1.4 mg/dL 1.6-2.6 L 627) [id number] 04:08:00 Test Item Value Reference Range Interpretation Comments FIBRINOGEN LEVEL (BEAKER) (test 548 mg/dl 225-434 H code = 658) [id number] 04:08:00 Test Item Value Reference Range Interpretation Comments PARTIAL THROMBOPLASTIN TIME 37.7 seconds 22.5-36.0 H (BEAKER) (test code = 760) PROTHROMBIN [id number] 04:07:00 Test Item Value Reference Range Interpretation Comments PROTIME (BEAKER) (test code = 16.2 seconds 11.7-14.7 H 759) INR (BEAKER) (test code = 370) 1.3 <=5.9 RECOMMENDED COUMADIN/WARFARIN INR THERAPY RANGESSTANDARD DOSE: 2.0 - 3.0 Includes: PROPHYLAXIS forvenous thrombosis, systemic embolization; TREATMENT for venous thrombosis and/or pulmonary embolus.HIGH RISK: Target INR is 2.5-3.5 for patients with mechanical heart valves.[id number] 16:59:00 Test Item Value Reference Range Interpretation Comments ACTIVATED CLOTTING TIME 219 sec TEST ED AT [place] [address] ([facility]) (test code = JULIANO Osborne [place] 441) [address] BASIC METABOLIC [id number] 14:25:00 Test Item Value Reference Range Interpretation [...] NOT APPLICABLE FOR DIALYSIS PATIEN TS. POCT-GLUCOSE [id number] 13:21:00 Test Item Value Reference Range Interpretation Comments POC-GLUCOSE METER 170 mg/dL 70-110 H TESTED AT [place] [address] ([facility]) (test code = JULIANO Osborne [place] 1538) [address] POTASSIUM-STAT [id number] 13:20:00 Test Item Value Reference Range Interpretation Comments POTASSIUM (BEAKER) (test code = 4.2 meq/L 3.6-5.5 379) SODIUM NA-STAT [id number] 13:20:00 Test Item Value Reference Range Interpretation Comments SODIUM (BEAKER) (test code = 381) 133 meq/L 135-148 L HGB/HCT (H&H) - STAT [id number] 12:34:00 Test Item Value Reference Range Interpretation Comments HEMOGLOBIN (BEAKER) (test code = 10.8 g/dL 12.0-15.0 L 410) HEMATOCRIT (BEAKER) (test code = 32.0 % 36.0-45.0 L 411) POTASSIUM-STAT [id number] 08:15:00 Test Item Value Reference Range Interpretation Comments POTASSIUM (BEAKER) (test code = 4.1 meq/L 3.6-5.5 379) BLOOD GAS, [id number] 08:15:00 Test Item Value Reference Range Interpretation [...] code = 1819) 70.0 % SODIUM NA-STAT [id number] 08:15:00 Test Item Value Reference Range Interpretation Comments SODIUM (BEAKER) (test code = 381) 130 meq/L 135-148 L GLUCOSE-STAT [id number] 08:15:00 Test Item Value Reference Range Interpretation Comments GLUCOSE RANDOM (BEAKER) (test code 172 mg/dL 70-110 H = 652) HGB/HCT (H&H) - STAT [id number] 08:15:00 Test Item Value Reference Range Interpretation Comments HEMOGLOBIN (BEAKER) (test code = 8.8 g/dL 12.0-15.0 L 410) HEMATOCRIT (BEAKER) (test code = 26.0 % 36.0-45.0 L 411) BASIC METABOLIC [id number] 07:37:00 Test Item Value Reference Range Interpretation [...] PATIEN TS. CBC W/PLT COUNT & AUTO [id number] 07:20:00 Test Item Value Reference Range Interpretation [...] % 0-1 PERCENT (BEAKER) (test code = 2554) POCT-GLUCOSE [id number] 07:03:00 Test Item Value Reference Range Interpretation Comments POC-GLUCOSE METER 186 mg/dL 70-110 H TESTED AT [facility] 6720 (BEAKER) (test code = JULIANO [place] 1538) [address] B-TYPE NATRIURETIC FACTOR (BNP)[id number] 12:44:00 Test Item Value Reference Range Interpretation Comments B-TYPE NATRIURETIC PEPTIDE 1264 pg/mL 0-100 H (BEAKER) (test code = 700) [id number] 12:36:00 Test Item Value Reference Range Interpretation Comments MAGNESIUM (BEAKER) (test code = 1.6 mg/dL 1.6-2.6 627) BASIC METABOLIC [id number] 12:36:00 Test Item Value Reference Range Interpretation [...] NOT APPLICABLE FOR DIALYSIS PATIEN TS. POCT-GLUCOSE [id number] 12:04:00 Test Item Value Reference Range Interpretation Comments POC-GLUCOSE METER 274 mg/dL 70-110 H TESTED AT [facility] 6720 ([facility]) (test code = [facility] 1538) [address] POCT-GLUCOSE [id number] 07:21:00 Test Item Value Reference Range Interpretation Comments POC-GLUCOSE METER 137 mg/dL 70-110 H TESTED AT [place] [id number] ([facility]) (test code = [facility] 1538) [address] BASIC METABOLIC [id number] 05:10:00 Test Item Value Reference Range Interpretation [...] 0-0 (BEAKER) (test code = 413) POCT-GLUCOSE [id number] 21:23:00 Test Item Value Reference Range Interpretation Comments POC-GLUCOSE METER 240 mg/dL 70-110 H TESTED AT [place] [address] ([facility]) (test code = JULIANO Osborne [place] 1538) [address] POCT-GLUCOSE [id number] 16:42:00 Test Item Value Reference Range Interpretation Comments POC-GLUCOSE METER 234 mg/dL 70-110 H TESTED AT [facility] 6720 ([facility]) (test code = JULIANO Osborne [place] 1538) [address] POCT-GLUCOSE [id number] 13:22:00 Test Item Value Reference Range Interpretation Comments POC-GLUCOSE METER 166 mg/dL 70-110 H TESTED AT [facility] 6720 ([facility]) (test code = JULIANO Osborne [facility] 1538) [address] RAD, CHEST, 1 VIEW, NON [id number] 09:43:00Reason for exam:->s/p ACBShould this be performed [...] Lynda Ringeport Verified Date/Time: 05/31/2017 09:43:30 ReadingLocation: [facility] B1 [id number] Ortho Consult Reading Room POCT-GLUCOSE [id number] 06:57:00 Test Item Value Reference Range Interpretation Comments POC-GLUCOSE METER 136 mg/dL 70-110 H TESTED AT [facility] 6720 ([facility]) (test code = JULIANO Osborne [facility] 1538) [address] CALCIUM, [id number] 06:41:00 Test Item Value Reference Range Interpretation Comments CALCIUM IONIZED (BEAKER) (test 1.10 mmol/L 1.12-1.27 L code = 698) PH, BLOOD (BEAKER) (test code = 7.42 1810) [id number] 06:17:00 Test Item Value Reference Range Interpretation Comments PHOSPHORUS (BEAKER) (test code = 3.3 mg/dL 2.3-4.7 604) [id number] 06:17:00 Test Item Value Reference Range Interpretation Comments MAGNESIUM (BEAKER) (test code = 1.8 mg/dL 1.6-2.6 627) BASIC METABOLIC [id number] 06:17:00 Test Item Value Reference Range Interpretation [...] PATIEN TS. CBC W/PLT COUNT & AUTO [id number] 05:07:00 Test Item Value Reference Range Interpretation [...] PERCENT (BEAKER) (test code = 2801) POCT-GLUCOSE [id number] 20:56:00 Test Item Value Reference Range Interpretation Comments POC-GLUCOSE METER 196 mg/dL 70-110 H TESTED AT [facility] 67 ([facility]) (test code = [facility] 1538) [address] POCT-GLUCOSE [id number] 16:42:00 Test Item Value Reference Range Interpretation Comments POC-GLUCOSE METER 196 mg/dL 70-110 H TESTED AT [place] [address] ([facility]) (test code = [facility] 1538) [address] POCT-GLUCOSE [id number] 11:45:00 Test Item Value Reference Range Interpretation Comments POC-GLUCOSE METER 215 mg/dL 70-110 H TESTED AT [place] [address] ([facility]) (test code = [facility] 1538) [address] RAD, CHEST, 1 VIEW, NON [id number] 11:15:00Reason for exam:->s/p ACBShould this be performed at the bedside?->YesFINAL REPORT Chest one view compared to May 28, 2017 Discussion: Airspace opacities are seen in both lower lung regions, probably atelectasis. Correlate clinically for infection. I could not exclude small effusions. No pneumothorax. Upper lungs clear. Signed: Jeannette Nava MDReport Verified Date/Time: 05/30/2017 11:15:07 Reading Location: [facility] Reading Room CALCIUM, [id number] 09:21:00 Test Item Value Reference Range Interpretation Comments CALCIUM IONIZED (BEAKER) (test 1.11 mmol/L 1.12-1.27 L code = 698) PH, BLOOD (BEAKER) (test code = 7.36 1810) BASIC METABOLIC [id number] 07:37:00 Test Item Value Reference Range Interpretation [...] S NOT APPLICABLE FOR DIALYSIS PATIEN TS. [id number] 07:28:00 Test Item Value Reference Range Interpretation Comments PHOSPHORUS (BEAKER) (test code = 3.8 mg/dL 2.3-4.7 604) [id number] 07:28:00 Test Item Value Reference Range Interpretation Comments MAGNESIUM (BEAKER) (test code = 1.9 mg/dL 1.6-2.6 627) CBC W/PLT COUNT & AUTO [id number] 07:26:00 Test Item Value Reference Range Interpretation [...] PERCENT (BEAKER) (test code = 2801) POCT-GLUCOSE [id number] 07:21:00 Test Item Value Reference Range Interpretation Comments POC-GLUCOSE METER 146 mg/dL 70-110 H TESTED AT [place] [address] ([facility]) (test code = [facility] 1538) [address] POCT-GLUCOSE [id number] 22:02:00 Test Item Value Reference Range Interpretation Comments POC-GLUCOSE METER 201 mg/dL 70-110 H TESTED AT [place] [address] ([facility]) (test code = [facility] 1538) [address] POCT-GLUCOSE [id number] 18:27:00 Test Item Value Reference Range Interpretation Comments POC-GLUCOSE METER 240 mg/dL 70-110 H TESTED AT [place] [address] ([facility]) (test code = [facility] 1538) [address] POCT-GLUCOSE [id number] 12:13:00 Test Item Value Reference Range Interpretation Comments POC-GLUCOSE METER 193 mg/dL 70-110 H TESTED AT [place] [address] ([facility]) (test code = [facility] 1538) [address] POCT-GLUCOSE [id number] 09:02:00 Test Item Value Reference Range Interpretation Comments POC-GLUCOSE METER 132 mg/dL 70-110 H TESTED AT [place] [address] ([facility]) (test code = [facility] 1538) [address] CALCIUM, [id number] 05:42:00 Test Item Value Reference Range Interpretation Comments CALCIUM IONIZED ([facility]) (test 1.12 mmol/L 1.12-1.27 code = 698) PH, BLOOD ([facility]) (test code = 7.34 1810) COMPREHENSIVE METABOLIC [id number] 05:33:00 Test Item Value Reference Range Interpretation Comments TOTAL PROTEIN 5.9 gm/dL 6.0-8.3 L ([facility]) (test code = 770) ALBUMIN ([facility]) 2.7 g/dL 3.5-5.0 L (test code = 1145) ALKALINE PHOSPHATASE 130 U/L 40-150 ([facility]) (test code = 346) BILIRUBIN TOTAL 0.3 mg/dL 0.2-1.2 ([facility]) (test code = 377) SODIUM ([facility]) (test 135 meq/L 136-145 L code = [...] S NOT APPLICABLE FOR DIALYSIS PATIEN TS. [id number] 05:32:00 Test Item Value Reference Range Interpretation Comments PHOSPHORUS (BEAKER) (test code = 3.6 mg/dL 2.3-4.7 604) [id number] 05:32:00 Test Item Value Reference Range Interpretation Comments MAGNESIUM (BEAKER) (test code = 2.2 mg/dL 1.6-2.6 627) CBC W/PLT COUNT & AUTO [id number] 05:01:00 Test Item Value Reference Range Interpretation [...] PERCENT (BEAKER) (test code = 2801) POCT-GLUCOSE [id number] 21:04:00 Test Item Value Reference Range Interpretation Comments POC-GLUCOSE METER 165 mg/dL 70-110 H TESTED AT [facility] [address] ([facility]) (test code = JULIANO Osborne [facility] 1538) [id number] POCT-GLUCOSE [id number] 17:30:00 Test Item Value Reference Range Interpretation Comments POC-GLUCOSE METER 236 mg/dL 70-110 H TESTED AT [facility] [address] ([facility]) (test code = JULIANO Osborne [facility] 1538) [address] RAD, CHEST, 1 VIEW, NON [id number] 13:53:00Reason for exam:->assess for ill-defined opacityShould this [...] Impression: No change. Signed: Luis Alberto Roach Verified Date/Time: 05/28/2017 13:53:03 Reading Location: [address] Radiology Reading Room POCT-GLUCOSE [id number] 11:53:00 Test Item Value Reference Range Interpretation Comments POC-GLUCOSE METER 215 mg/dL 70-110 H TESTED AT [facility] [address] ([facility]) (test code = JULIANO Osborne [facility] 1538) [id number] POCT-GLUCOSE [id number] 08:32:00 Test Item Value Reference Range Interpretation Comments POC-GLUCOSE METER 168 mg/dL 70-110 H TESTED AT [facility] [address] ([facility]) (test code = JULIANO Osborne [facility] 1538) [id number] CALCIUM, [id number] 05:44:00 Test Item Value Reference Range Interpretation Comments CALCIUM IONIZED (BEAKER) (test 1.09 mmol/L 1.12-1.27 L code = 698) PH, BLOOD (BEAKER) (test code = 7.38 1810) [id number] 05:44:00 Test Item Value Reference Range Interpretation Comments PHOSPHORUS (BEAKER) (test code = 3.5 mg/dL 2.3-4.7 604) [id number] 05:44:00 Test Item Value Reference Range Interpretation Comments MAGNESIUM (BEAKER) (test code = 1.9 mg/dL 1.6-2.6 627) BASIC METABOLIC [id number] 05:44:00 Test Item Value Reference Range Interpretation [...] PATIEN TS. CBC W/PLT COUNT & AUTO [id number] 05:05:00 Test Item Value Reference Range Interpretation [...] PERCENT (BEAKER) (test code = 2801) POCT-GLUCOSE [id number] 21:03:00 Test Item Value Reference Range Interpretation Comments POC-GLUCOSE METER 173 mg/dL 70-110 H TESTED AT [place] [address] ([facility]) (test code = [facility] 1538) [address] [id number] 18:15:00 Test Item Value Reference Range Interpretation Comments ACTIVATED CLOTTING TIME 147 sec TEST ED AT [place] [address] ([facility]) (test code = [facility] 441) [address] [id number] 18:15:00 Test Item Value Reference Range Interpretation Comments ACTIVATED CLOTTING TIME 246 sec TEST ED AT [place] [address] ([facility]) (test code = [facility] 441) [address] POCT-GLUCOSE [id number] 12:39:00 Test Item Value Reference Range Interpretation Comments POC-GLUCOSE METER 219 mg/dL 70-110 H TESTED AT [place] [address] ([facility]) (test code = [facility] 1538) [address] RAD, CHEST, 1 VIEW, NON [id number] 10:11:00Reason for exam:->pl effusionShould this be performed at the bedside?->YesFINAL REPORT Chest one view compared to May 26 Discussion: There is cardiac prominence. Upper lungs are clear. Ill-defined basilar densities are similar probably atelectasis. No gross effusion or pneumothorax with bilateral chest tubes in place. Signed: Jeannette Navaeport Verified Date/Time: 05/27/2017 10:11:44 Reading Location: [facility] Radiology Reading Room POCT-GLUCOSE METER 2017-05-27 07:05:00 Test Item Value Reference Range Interpretation Comments POC-GLUCOSE METER 167 mg/dL 70-110 H TESTED AT [facility] 6720 (BEAKER) (test code = [place] 1538) [address] CALCIUM, [id number] 06:20:00 Test Item Value Reference Range Interpretation Comments CALCIUM IONIZED (BEAKER) (test 0.98 mmol/L 1.12-1.27 L code = 698) PH, BLOOD (BEAKER) (test code = 7.50 1810) [id number] 04:56:00 Test Item Value Reference Range Interpretation Comments PHOSPHORUS (BEAKER) (test code = 2.6 mg/dL 2.3-4.7 604) [id number] 04:56:00 Test Item Value Reference Range Interpretation Comments MAGNESIUM (BEAKER) (test code = 2.0 mg/dL 1.6-2.6 627) BASIC METABOLIC [id number] 04:56:00 Test Item Value Reference Range Interpretation [...] PATIEN TS. CBC W/PLT COUNT & AUTO [id number] 04:36:00 Test Item Value Reference Range Interpretation [...] 417) IMMATURE GRANULOCYTES-RELATIVE 1 % 0-1 PERCENT (AKER) (test code = 2801) POCT-GLUCOSE [id number] 21:29:00 Test Item Value Reference Range Interpretation Comments POC-GLUCOSE METER 147 mg/dL 70-110 H TESTED AT [place] [address] ([facility]) (test code = [facility] 1538) [address] POCT-GLUCOSE [id number] 17:51:00 Test Item Value Reference Range Interpretation Comments POC-GLUCOSE METER 224 mg/dL 70-110 H TESTED AT [place] [address] ([facility]) (test code = [facility] 1538) [address] POCT-GLUCOSE [id number] 13:53:00 Test Item Value Reference Range Interpretation Comments POC-GLUCOSE METER 182 mg/dL 70-110 H TESTED AT [place] [address] ([facility]) (test code = [facility] 1538) [address] RAD, CHEST, 1 VIEW, NON [id number] 08:44:00Reason for exam:->pl effusionShould this be performed [...] MDReport Verified Date/Time: 05/26/2017 08:44:25 Reading Location: [address] Radiology Reading Room POCT- GLUCOSE [id number] 07:43:00 Test Item Value Reference Range Interpretation Comments POC-GLUCOSE METER 113 mg/dL 70-110 H TESTED AT [facility] 6720 (BEAKER) (test code = [place] 1538) [address] CALCIUM, [id number] 06:31:00 Test Item Value Reference Range Interpretation Comments CALCIUM IONIZED (BEAKER) (test 1.07 mmol/L 1.12-1.27 L code = 698) PH, BLOOD (BEAKER) (test code = 7.38 1810) [id number] 04:51:00 Test Item Value Reference Range Interpretation Comments PHOSPHORUS (BEAKER) (test code = 3.2 mg/dL 2.3-4.7 604) [id number] 04:51:00 Test Item Value Reference Range Interpretation Comments MAGNESIUM (BEAKER) (test code = 2.1 mg/dL 1.6-2.6 627) BASIC METABOLIC [id number] 04:51:00 Test Item Value Reference Range Interpretation [...] PATIEN TS. CBC W/PLT COUNT & AUTO [id number] 04:27:00 Test Item Value Reference Range Interpretation [...] PERCENT (BEAKER) (test code = 2801) POCT-GLUCOSE [id number] 23:48:00 Test Item Value Reference Range Interpretation Comments POC-GLUCOSE METER 123 mg/dL 70-110 H TESTED AT [facility] 6720 (BEAKER) (test code = JULIANO Osborne [place] 1538) [address] POCT-GLUCOSE [id number] 16:46:00 Test Item Value Reference Range Interpretation Comments POC-GLUCOSE METER 178 mg/dL 70-110 H TESTED AT [facility] 6720 (BEAKER) (test code = JULIANO Osborne [place] 1538) [address] BASIC METABOLIC [id number] 05:53:00 Test Item Value Reference Range Interpretation [...] S NOT APPLICABLE FOR DIALYSIS PATIEN TS. [id number] 05:52:00 Test Item Value Reference Range Interpretation Comments PHOSPHORUS (BEAKER) (test code = 4.2 mg/dL 2.3-4.7 604) [id number] 05:52:00 Test Item Value Reference Range Interpretation Comments MAGNESIUM (BEAKER) (test code = 2.3 mg/dL 1.6-2.6 627) CALCIUM, [id number] 05:27:00 Test Item Value Reference Range Interpretation Comments CALCIUM IONIZED (BEAKER) (test 1.12 mmol/L 1.12-1.27 code = 698) PH, BLOOD (BEAKER) (test code = 7.38 1810) CBC W/PLT COUNT & AUTO [id number] 05:07:00 Test Item Value Reference Range Interpretation [...] = 2801) RAD, CHEST, 1 VIEW, NON [id number] 04:45:00Reason for exam:->pl effusionShould this be performed at the bedside?->YesFINAL REPORT RAD, CHEST, 1 VIEW, NON DEPT INDICATION: pl effusion COMPARISON:Prior day's exam FINDINGS: Portable frontal view of the chest. IMPRESSION: Support Lines: Stable.Lungs and pleura: Unchanged airspace and pleural opacities. No pneumothorax.Heart and mediastinum: Stable contours. Stable surgical changes.Additional findings: None. Signed: JR Boswell Robert MDReport Verified Date/Time: 05/25/2017 04:45:08 Reading Location: [address] Body Reading Room POCT-GLUCOSE [id number] 01:52:00 Test Item Value Reference Range Interpretation Comments POC-GLUCOSE METER 126 mg/dL 70-110 H TESTED AT [place] [address] ([facility]) (test code = JULIANO Osborne [facility] 1538) [address] POCT-GLUCOSE [id number] 13:07:00 Test Item Value Reference Range Interpretation Comments POC-GLUCOSE METER 118 mg/dL 70-110 H TESTED AT [facility] 6720 ([facility]) (test code = JULIANO Osborne [facility] 1538) [address] BRONCHIAL CULTURE + GRAM [id number] 11:35:00 Test Item Value Reference Range Interpretation Comments CULTURE ([facility]) (test code = 1095) Amikacin (test [...] <1+ gram (BEAKER) (test code = positive 461248) cocci in pairs GRAM STAIN RESULT 1+ gram (BEAKER) (test code = variable rods 912187) 1+ Normal respiratory todd presentRAD, CHEST, 1 VIEW, NON [id number] 06:50:00Reason for exam:->pl effusionShould this be performed at the bedside?->YesFINAL REPORT RAD, CHEST, 1 VIEW, NON DEPT INDICATION: pl effusion COMPARISON:Prior day's exam FINDINGS: Portable frontal view of the chest. IMPRESSION: Support Lines: Stable.Lungs and pleura: Unchanged airspace and pleural opacities. No pneumothorax.Heart and mediastinum: Stable contours. Stable surgical changes.Additional findings: None. Signed: JR Boswell Robert MDReport Verified Date/Time: 05/24/2017 06:50:08 Reading Location: [facility] C013Y CT Body Reading Room BASIC METABOLIC [id number] 04:19:00 Test Item Value Reference Range Interpretation [...] NOT APPLICABLE FOR DIALYSIS PATIEN TS. CALCIUM, [id number] 04:16:00 Test Item Value Reference Range Interpretation Comments CALCIUM IONIZED (BEAKER) (test 1.06 mmol/L 1.12-1.27 L code = 698) PH, BLOOD (BEAKER) (test code = 7.40 1810) [id number] 04:11:00 Test Item Value Reference Range Interpretation Comments PHOSPHORUS (BEAKER) (test code = 6.0 mg/dL 2.3-4.7 H 604) [id number] 04:11:00 Test Item Value Reference Range Interpretation Comments MAGNESIUM (BEAKER) (test code = 2.4 mg/dL 1.6-2.6 627) CBC W/PLT COUNT & AUTO [id number] 03:50:00 Test Item Value Reference Range Interpretation [...] PERCENT (BEAKER) (test code = 2801) POCT-GLUCOSE [id number] 20:45:00 Test Item Value Reference Range Interpretation Comments POC-GLUCOSE METER 143 mg/dL 70-110 H TESTED AT [facility] 6720 (BEAKER) (test code = JULIANO REYEZ 1538) [address] POCT-GLUCOSE [id number] 20:45:00 Test Item Value Reference Range Interpretation Comments POC-GLUCOSE METER 145 mg/dL 70-110 H TESTED AT [facility] 6720 (BEAKER) (test code = [place] 1535) [address] [id number] 13:37:00 Test Item Value Reference Range Interpretation Comments PREALBUMIN (BEAKER) 10 mg/dL 14-45 L Specimen slightly (test code = 586) hemolyzed OXYGEN SATURATION, [id number] 12:31:00 Test Item Value Reference Range Interpretation Comments O2 SATURATION (MEASURED) (BEAKER) 94.5 % (test code = 1455) [id number] 11:02:00 Test Item Value Reference Range Interpretation Comments PREALBUMIN (BEAKER) (test code = 10 mg/dL 14-45 L 586) RAD, CHEST, 1 VIEW, NON [id number] 05:14:00while patient is intubated or has chest [...] MDReport Verified Date/Time: 05/23/2017 05:14:04 Reading Location: [facility] C013Y CT Body Reading Room BASIC METABOLIC [id number] 03:48:00 Test Item Value Reference Range Interpretation [...] S NOT APPLICABLE FOR DIALYSIS PATIEN TS. [id number] 03:46:00 Test Item Value Reference Range Interpretation Comments MAGNESIUM (BEAKER) 2.4 mg/dL 1.6-2.6 Specimen slightly (test code = 627) hemolyzed [id number] 03:46:00 Test Item Value Reference Range Interpretation Comments PHOSPHORUS (BEAKER) 6.5 mg/dL 2.3-4.7 H Specimen slightly (test code = 604) hemolyzed CBC W/PLT COUNT & AUTO [id number] 03:26:00 Test Item Value Reference Range Interpretation [...] (BEAKER) (test code = 2801) BLOOD GAS, [id number] 03:18:00 Test Item Value Reference Range Interpretation [...] (test code = 1819) 36.0 % CALCIUM, [id number] 16:32:00 Test Item Value Reference Range Interpretation Comments CALCIUM IONIZED (BEAKER) (test 1.11 mmol/L 1.12-1.27 L code = 698) PH, BLOOD (BEAKER) (test code = 7.39 1810) BASIC METABOLIC [id number] 15:43:00 Test Item Value Reference Range Interpretation [...] NOT APPLICABLE FOR DIALYSIS PATIEN TS. POCT-GLUCOSE [id number] 12:53:00 Test Item Value Reference Range Interpretation Comments POC-GLUCOSE METER 118 mg/dL 70-110 H TESTED AT [facility] 6720 (BEAKER) (test code = [place] 1538) [address] BLOOD GAS, [id number] 10:42:00 Test Item Value Reference Range Interpretation [...] (test code = 1819) 40.0 % POCT-GLUCOSE [id number] 06:46:00 Test Item Value Reference Range Interpretation Comments POC-GLUCOSE METER 106 mg/dL 70-110 TESTED AT [facility] 6720 (BEAKER) (test code = [place] 1538) [address] RAD, CHEST, 1 VIEW, NON [id number] 05:05:00while patient is intubated or has chest [...] Bettencourt Verified Date/Time: 05/22/2017 05:05:00 Reading Location: [address] Body ReadingRoom BASIC METABOLIC [id number] 05:00:00 Test Item Value Reference Range Interpretation [...] S NOT APPLICABLE FOR DIALYSIS PATIEN TS. [id number] 04:41:00 Test Item Value Reference Range Interpretation Comments PHOSPHORUS (BEAKER) (test code = 6.4 mg/dL 2.3-4.7 H 604) [id number] 04:41:00 Test Item Value Reference Range Interpretation Comments MAGNESIUM (BEAKER) (test code = 2.6 mg/dL 1.6-2.6 627) CALCIUM, [id number] 04:26:00 Test Item Value Reference Range Interpretation Comments CALCIUM IONIZED (BEAKER) (test 1.09 mmol/L 1.12-1.27 L code = 698) PH, BLOOD (BEAKER) (test code = 7.40 1810) OXYGEN SATURATION, [id number] 04:25:00 Test Item Value Reference Range Interpretation Comments O2 SATURATION (MEASURED) (BEAKER) 77.0 % (test code = 1455) CBC W/PLT COUNT & AUTO [id number] 04:17:00 Test Item Value Reference Range Interpretation [...] 0-1 PERCENT (BEAKER) (test code = 2803) LACTIC ACID, ARTERIAL, WHOLE [id number] 00:07:00 Test Item Value Reference Range Interpretation Comments LACTATE BLOOD 1.0 mmol/L 0.5-2.2 Specimen sligh tly ARTERIAL (2) (BEAKER) hemoly zed (test code = 2874) Effective 08/02/2015: Units/Reference Range ChangeNew: 0.5-2.2 mmol/L Previous: 5-20 mg/dLPOCT-GLUCOSE [id number] 23:47:00 Test Item Value Reference Range Interpretation Comments POC-GLUCOSE METER 180 mg/dL 70-110 H TESTED AT [facility] 6720 (BEAKER) (test code = JULIANO REYEZ 1538) [address] BLOOD GAS, [id number] 23:46:00 Test Item Value Reference Range Interpretation [...] code = 1819) 100.0 % SODIUM NA-STAT [id number] 23:46:00 Test Item Value Reference Range Interpretation Comments SODIUM (BEAKER) (test code = 381) 134 meq/L 135-148 L GLUCOSE-STAT [id number] 23:46:00 Test Item Value Reference Range Interpretation Comments GLUCOSE RANDOM (BEAKER) (test code 119 mg/dL 70-110 H = 652) HGB/HCT (H&H) - STAT [id number] 23:46:00 Test Item Value Reference Range Interpretation Comments HEMOGLOBIN (BEAKER) (test code = 8.8 g/dL 12.0-15.0 L 410) HEMATOCRIT (BEAKER) (test code = 26.0 % 36.0-45.0 L 411) OXYGEN SATURATION, [id number] 23:45:00 Test Item Value Reference Range Interpretation Comments O2 SATURATION (MEASURED) (BEAKER) 68.1 % (test code = 1455) POTASSIUM-STAT [id number] 23:45:00 Test Item Value Reference Range Interpretation Comments POTASSIUM (BEAKER) (test code = 5.5 meq/L 3.6-5.5 379) POCT-GLUCOSE [id number] 20:58:00 Test Item Value Reference Range Interpretation Comments POC-GLUCOSE METER 133 mg/dL 70-110 H TESTED AT [facility] 6720 ([facility] (test code = [place] 1538) [address] POCT-GLUCOSE [id number] 17:58:00 Test Item Value Reference Range Interpretation Comments POC-GLUCOSE METER 210 mg/dL 70-110 H TESTED AT [facility] 6720 ([facility] (test code = JULIANO Osborne [facility] 1538) [address] POCT-GLUCOSE [id number] 17:58:00 Test Item Value Reference Range Interpretation Comments POC-GLUCOSE METER 211 mg/dL 70-110 H TESTED AT [place] [address] ([facility]) (test code = JULIANO Osborne [place] 1538) [address] POCT-GLUCOSE [id number] 17:58:00 Test Item Value Reference Range Interpretation Comments POC-GLUCOSE METER 232 mg/dL 70-110 H TESTED AT [place] [address] (BEAKER) (test code = JULIANO Osborne [place] 1538) [address] POCT-GLUCOSE [id number] 17:58:00 Test Item Value Reference Range Interpretation Comments POC-GLUCOSE METER 262 mg/dL 70-110 H TESTED AT [place] [address] (BEAKER) (test code = JULIANO Osborne [facility] 1538) [address] BLOOD GAS, [id number] 17:01:00 Test Item Value Reference Range Interpretation [...] (test code = 1819) 60.0 % POTASSIUM-STAT [id number] 17:00:00 Test Item Value Reference Range Interpretation Comments POTASSIUM (BEAKER) (test code = 4.8 meq/L 3.6-5.5 379) POCT-GLUCOSE [id number] 15:52:00 Test Item Value Reference Range Interpretation Comments POC-GLUCOSE METER 267 mg/dL 70-110 H TESTED AT [place] [address] (BEAKER) (test code = JULIANO Osborne [place] 1538) [address] POCT-GLUCOSE [id number] 14:42:00 Test Item Value Reference Range Interpretation Comments POC-GLUCOSE METER 231 mg/dL 70-110 H TESTED AT [facility] 6720 (BEAKER) (test code = [place] 1538) [address] BODY FLUID CELL COUNT WITH [id number] 14:41:00 Test Item Value Reference Range Interpretation [...] Tube (test code = 2873) BASIC METABOLIC [id number] 14:11:00 Test Item Value Reference Range Interpretation [...] S NOT APPLICABLE FOR DIALYSIS PATIEN TS. [id number] 14:08:00 Test Item Value Reference Range Interpretation Comments PHOSPHORUS (BEAKER) (test code = 7.2 mg/dL 2.3-4.7 H 604) [id number] 14:08:00 Test Item Value Reference Range Interpretation Comments MAGNESIUM (BEAKER) (test code = 2.6 mg/dL 1.6-2.6 627) POCT-GLUCOSE [id number] 12:49:00 Test Item Value Reference Range Interpretation Comments POC-GLUCOSE METER 224 mg/dL 70-110 H TESTED AT [facility] 67 (ROBERT) (test code = JULIANO Osborne [facility] 1538) [address] POCT-GLUCOSE [id number] 12:49:00 Test Item Value Reference Range Interpretation Comments POC-GLUCOSE METER 248 mg/dL 70-110 H TESTED AT [place] [address] (ORBERT) (test code = JULIANO Osborne [facility] 1538) [address] RAD, CHEST, 1 VIEW, NON [id number] 12:32:00Reason for exam:->re-intubationShould this be performed at [...] pneumothorax is grossly unchanged. Signed: Mona White MDRepsaint john's health system Verified Date/Time: 05/21/2017 12:32:08 Reading Location: [facility] Radiology Reading Room POTASSIUM-STAT [id number] 12:28:00 Test Item Value Reference Range Interpretation Comments POTASSIUM (BEAKER) (test code = 5.5 meq/L 3.6-5.5 379) BLOOD GAS, [id number] 12:28:00 Test Item Value Reference Range Interpretation [...] code = 1819) 100.0 % BLOOD GAS, [id number] 10:53:00 Test Item Value Reference Range Interpretation [...] 36.0 % RAD, CHEST, 1 VIEW, NON [id number] 08:46:00while patient is intubated or has chest [...] minimal left apical pneumothorax is suspected. Signed: Tristan, Visveshwar MDReport Verified Date/Time: 05/21/2017 08:46:27 Reading Location: [facility] Radiology Reading Room BLOOD GAS, [id number] 05:41:00 Test Item Value Reference Range Interpretation [...] (BEAKER) (test code = 1819) 40 CALCIUM, [id number] 04:35:00 Test Item Value Reference Range Interpretation Comments CALCIUM IONIZED (BEAKER) (test 1.13 mmol/L 1.12-1.27 code = 698) PH, BLOOD (BEAKER) (test code = 7.32 1810) BLOOD GAS, [id number] 04:28:00 Test Item Value Reference Range Interpretation [...] (BEAKER) (test code = 1819) 40.0 % [id number] 04:20:00 Test Item Value Reference Range Interpretation Comments PHOSPHORUS (BEAKER) (test code = 6.2 mg/dL 2.3-4.7 H 604) [id number] 04:20:00 Test Item Value Reference Range Interpretation Comments MAGNESIUM (BEAKER) (test code = 2.4 mg/dL 1.6-2.6 627) HEPATIC FUNCTION [id number] 04:20:00 Test Item Value Reference Range Interpretation [...] = 11 U/L 6-55 347) BASIC METABOLIC [id number] 04:20:00 Test Item Value Reference Range Interpretation [...] APPLICABLE FOR DIALYSIS PATIEN TS. OXYGEN SATURATION, [id number] 04:18:00 Test Item Value Reference Range Interpretation Comments O2 SATURATION (MEASURED) (BEAKER) 68.0 % (test code = 1455) LACTIC ACID, ARTERIAL, WHOLE [id number] 04:12:00 Test Item Value Reference Range Interpretation Comments LACTATE BLOOD ARTERIAL (2) 1.0 mmol/L 0.5-2.2 (BEAKER) (test code = 2874) Effective 08/02/2015: Units/Reference Range ChangeNew: 0.5-2.2 mmol/L Previous: 5-20 mg/dLCBC W/PLT COUNT & AUTO [id number] 04:00:00 Test Item Value Reference Range Interpretation [...] (BEAKER) (test code = 2801) BLOOD GAS, [id number] 00:06:00 Test Item Value Reference Range Interpretation [...] (BEAKER) (test code = 1819) 40.0 % [id number] 18:55:00 Test Item Value Reference Range Interpretation Comments PHOSPHORUS (BEAKER) (test code = 4.8 mg/dL 2.3-4.7 H 604) [id number] 18:55:00 Test Item Value Reference Range Interpretation Comments MAGNESIUM (BEAKER) (test code = 2.3 mg/dL 1.6-2.6 627) BASIC METABOLIC [id number] 18:55:00 Test Item Value Reference Range Interpretation [...] DIALYSIS PATIEN TS. LACTIC ACID, ARTERIAL, WHOLE [id number] 18:53:00 Test Item Value Reference Range Interpretation Comments LACTATE BLOOD 0.9 mmol/L 0.5-2.2 Specimen sligh tly ARTERIAL (2) (BEAKER) hemoly zed (test code = 2874) Effective 08/02/2015: Units/Reference Range ChangeNew: 0.5-2.2 mmol/L Previous: 5-20 mg/dLRAD, CHEST, 1 VIEW, NON [id number] 18:44:00Reason for exam:- >postop cardiacShould this be [...] MDReport Verified Date/Time: 05/20/2017 18:44:30 Reading Location: [facility] C013W Consult Reading Room Electronically signed by: MIGUEL BHAKTA M.D. on05/20/2017 06:44 PMCBC W/PLT COUNT & AUTO [id number] 18:38:00 Test Item Value Reference Range Interpretation [...] (BEAKER) (test code = 2801) OXYGEN SATURATION, [id number] 18:36:00 Test Item Value Reference Range Interpretation Comments O2 SATURATION (MEASURED) (BEAKER) 72.5 % (test code = 1455) From distal port of IJ central venous catheterSODIUM NA-STAT [id number] 18:30:00 Test Item Value Reference Range Interpretation Comments SODIUM (BEAKER) (test code = 381) 132 meq/L 135-148 L HGB/HCT (H&H) - STAT [id number] 18:30:00 Test Item Value Reference Range Interpretation Comments HEMOGLOBIN (BEAKER) (test code = 9.4 g/dL 12.0-15.0 L 410) HEMATOCRIT (BEAKER) (test code = 28.0 % 36.0-45.0 L 411) GLUCOSE-STAT [id number] 18:30:00 Test Item Value Reference Range Interpretation Comments GLUCOSE RANDOM (BEAKER) (test code 159 mg/dL 70-110 H = 652) BLOOD GAS, [id number] 18:30:00 Test Item Value Reference Range Interpretation [...] (test code = 1819) 60.0 % CALCIUM, [id number] 18:30:00 Test Item Value Reference Range Interpretation Comments CALCIUM IONIZED (BEAKER) (test 0.94 mmol/L 1.12-1.27 L code = 698) PH, BLOOD (BEAKER) (test code = 7.34 1810) POTASSIUM-STAT [id number] 18:28:00 Test Item Value Reference Range Interpretation [...] (test 0.0 % 0.0-5.0 code = 1414) [id number] 17:53:00 Test Item Value Reference Range Interpretation Comments ACTIVATED CLOTTING TIME 103 sec TEST ED AT [place] [address] (BEAKER) (test code = [place] 441) [address] [id number] 17:53:00 Test Item Value Reference Range Interpretation Comments ACTIVATED CLOTTING TIME 466 sec TEST ED AT [place] [address] (BEAKER) (test code = [place] 441) [address] [id number] 17:53:00 Test Item Value Reference Range Interpretation Comments ACTIVATED CLOTTING TIME 543 sec TEST ED AT [place] [address] ([facility]) (test code = [place] [address]) [id number] 17:53:00 Test Item Value Reference Range Interpretation Comments ACTIVATED CLOTTING TIME 549 sec TEST ED AT [place] [address] ([facility]) (test code = [place] [address]) [id number] 17:53:00 Test Item Value Reference Range Interpretation Comments ACTIVATED CLOTTING TIME 632 sec TEST ED AT [place] [address] ([facility]) (test code = [place] [address]) [id number] 17:53:00 Test Item Value Reference Range Interpretation Comments ACTIVATED CLOTTING TIME 494 sec TEST ED AT [place] [address] ([facility]) (test code = [place] [address]) [id number] 17:53:00 Test Item Value Reference Range Interpretation Comments ACTIVATED CLOTTING TIME 587 sec TEST ED AT [place] [address] ([facility]) (test code = [place] [address]) [id number] 17:53:00 Test Item Value Reference Range Interpretation Comments ACTIVATED CLOTTING TIME 626 sec TEST ED AT [place] [address] ([facility]) (test code = JULIANO Osborne [place] [address]) [id number] 17:52:00 Test Item Value Reference Range Interpretation Comments ACTIVATED CLOTTING TIME 808 sec TEST ED AT [place] [address] ([facility]) (test code = [place] [address]) [address] [id number] 16:54:00 Test Item Value Reference Range Interpretation Comments PARTIAL THROMBOPLASTIN TIME 40.2 seconds 22.5-36.0 H ([facility]) (test code = 760) [id number] 16:53:00 Test Item Value Reference Range Interpretation Comments FIBRINOGEN LEVEL ([facility]) (test 306 mg/dl 225-434 code = 658) PROTHROMBIN [id number] 16:50:00 Test Item Value Reference Range Interpretation Comments PROTIME ([facility]) (test code = 19.6 seconds 11.7-14.7 H 759) INR ([facility]) (test code = 370) 1.7 <=5.9 RECOMMENDED COUMADIN/WARFARIN INR THERAPY RANGESSTANDARD DOSE: 2.0 - 3.0 Includes: PROPHYLAXIS forvenous thrombosis, systemic embolization; TREATMENT for venous thrombosis and/or pulmonary embolus.HIGH RISK: Target INR is 2.5-3.5 for patients with mechanical heart valves.PLATELET [id number] 16:45:00 Test Item Value Reference Range Interpretation Comments PLATELET COUNT (BEAKER) (test 136 K/CU MM 150-450 L code = 756) POTASSIUM-STAT [id number] 16:15:00 Test Item Value Reference Range Interpretation Comments POTASSIUM (BEAKER) (test code = 4.9 meq/L 3.6-5.5 379) BLOOD GAS, [id number] 16:15:00 Test Item Value Reference Range Interpretation [...] code = 1819) 100.0 % SODIUM NA-STAT [id number] 16:15:00 Test Item Value Reference Range Interpretation Comments SODIUM (BEAKER) (test code = 381) 131 meq/L 135-148 L GLUCOSE-STAT [id number] 16:15:00 Test Item Value Reference Range Interpretation Comments GLUCOSE RANDOM (BEAKER) (test code 198 mg/dL 70-110 H = 652) HGB/HCT (H&H) - STAT [id number] 16:15:00 Test Item Value Reference Range Interpretation Comments HEMOGLOBIN (BEAKER) (test code = 7.5 g/dL 12.0-15.0 L 410) HEMATOCRIT (BEAKER) (test code = 22.0 % 36.0-45.0 L 411) CALCIUM, [id number] 16:14:00 Test Item Value Reference Range Interpretation Comments CALCIUM IONIZED (BEAKER) (test 0.91 mmol/L 1.12-1.27 L code = 698) PH, BLOOD (BEAKER) (test code = 7.39 1810) BLOOD GAS, [id number] 15:39:00 Test Item Value Reference Range Interpretation [...] code = 1819) 70.0 % SODIUM NA-STAT [id number] 15:39:00 Test Item Value Reference Range Interpretation Comments SODIUM (BEAKER) (test code = 381) 131 meq/L 135-148 L GLUCOSE-STAT [id number] 15:39:00 Test Item Value Reference Range Interpretation Comments GLUCOSE RANDOM (BEAKER) (test code 186 mg/dL 70-110 H = 652) HGB/HCT (H&H) - STAT [id number] 15:39:00 Test Item Value Reference Range Interpretation Comments HEMOGLOBIN (BEAKER) (test code = 7.5 g/dL 12.0-15.0 L 410) HEMATOCRIT (BEAKER) (test code = 22.0 % 36.0-45.0 L 411) POTASSIUM-STAT [id number] 15:38:00 Test Item Value Reference Range Interpretation Comments POTASSIUM (BEAKER) (test code = 5.3 meq/L 3.6-5.5 379) BLOOD GAS, [id number] 15:24:00 Test Item Value Reference Range Interpretation [...] code = 1819) 70.0 % SODIUM NA-STAT [id number] 15:24:00 Test Item Value Reference Range Interpretation Comments SODIUM (BEAKER) (test code = 381) 130 meq/L 135-148 L GLUCOSE-STAT [id number] 15:24:00 Test Item Value Reference Range Interpretation Comments GLUCOSE RANDOM (BEAKER) (test code 189 mg/dL 70-110 H = 652) HGB/HCT (H&H) - STAT [id number] 15:24:00 Test Item Value Reference Range Interpretation Comments HEMOGLOBIN (BEAKER) (test code = 6.7 g/dL 12.0-15.0 L 410) HEMATOCRIT (BEAKER) (test code = 20.0 % 36.0-45.0 L 411) POTASSIUM-STAT [id number] 15:23:00 Test Item Value Reference Range Interpretation Comments POTASSIUM (BEAKER) (test code = 5.4 meq/L 3.6-5.5 379) BLOOD GAS, [id number] 15:07:00 Test Item Value Reference Range Interpretation [...] code = 1819) 70.0 % SODIUM NA-STAT [id number] 15:07:00 Test Item Value Reference Range Interpretation Comments SODIUM (BEAKER) (test code = 381) 129 meq/L 135-148 L GLUCOSE-STAT [id number] 15:07:00 Test Item Value Reference Range Interpretation Comments GLUCOSE RANDOM (BEAKER) (test code 172 mg/dL 70-110 H = 652) HGB/HCT (H&H) - STAT [id number] 15:07:00 Test Item Value Reference Range Interpretation Comments HEMOGLOBIN (BEAKER) (test code = 7.1 g/dL 12.0-15.0 L 410) HEMATOCRIT (BEAKER) (test code = 21.0 % 36.0-45.0 L 411) POTASSIUM-STAT [id number] 15:04:00 Test Item Value Reference Range Interpretation Comments POTASSIUM (BEAKER) (test code = 5.0 meq/L 3.6-5.5 379) BLOOD GAS, [id number] 14:21:00 Test Item Value Reference Range Interpretation [...] code = 1819) 70.0 % SODIUM NA-STAT [id number] 14:21:00 Test Item Value Reference Range Interpretation Comments SODIUM (BEAKER) (test code = 381) 133 meq/L 135-148 L GLUCOSE-STAT [id number] 14:21:00 Test Item Value Reference Range Interpretation Comments GLUCOSE RANDOM (BEAKER) (test code 160 mg/dL 70-110 H = 652) HGB/HCT (H&H) - STAT [id number] 14:21:00 Test Item Value Reference Range Interpretation Comments HEMOGLOBIN (BEAKER) (test code = 7.5 g/dL 12.0-15.0 L 410) HEMATOCRIT (BEAKER) (test code = 22.0 % 36.0-45.0 L 411) POTASSIUM-STAT [id number] 14:20:00 Test Item Value Reference Range Interpretation Comments POTASSIUM (BEAKER) (test code = 4.7 meq/L 3.6-5.5 379) BLOOD GAS, [id number] 13:58:00 Test Item Value Reference Range Interpretation [...] code = 1819) 80.0 % SODIUM NA-STAT [id number] 13:58:00 Test Item Value Reference Range Interpretation Comments SODIUM (BEAKER) (test code = 381) 132 meq/L 135-148 L GLUCOSE-STAT [id number] 13:58:00 Test Item Value Reference Range Interpretation Comments GLUCOSE RANDOM (BEAKER) (test code 166 mg/dL 70-110 H = 652) HGB/HCT (H&H) - STAT [id number] 13:58:00 Test Item Value Reference Range Interpretation Comments HEMOGLOBIN (BEAKER) (test code = 7.5 g/dL 12.0-15.0 L 410) HEMATOCRIT (BEAKER) (test code = 22.0 % 36.0-45.0 L 411) POTASSIUM-STAT [id number] 13:57:00 Test Item Value Reference Range Interpretation Comments POTASSIUM (BEAKER) (test code = 4.7 meq/L 3.6-5.5 379) BLOOD GAS, [id number] 13:35:00 Test Item Value Reference Range Interpretation [...] (test code = 1819) 80.0 % GLUCOSE-STAT [id number] 13:35:00 Test Item Value Reference Range Interpretation Comments GLUCOSE RANDOM (BEAKER) (test code 130 mg/dL 70-110 H = 652) HGB/HCT (H&H) - STAT [id number] 13:35:00 Test Item Value Reference Range Interpretation Comments HEMOGLOBIN (BEAKER) (test code = 6.7 g/dL 12.0-15.0 L 410) HEMATOCRIT (BEAKER) (test code = 20.0 % 36.0-45.0 L 411) SODIUM NA-STAT [id number] 13:35:00 Test Item Value Reference Range Interpretation Comments SODIUM (BEAKER) (test code = 381) 133 meq/L 135-148 L POTASSIUM-STAT [id number] 13:34:00 Test Item Value Reference Range Interpretation Comments POTASSIUM (BEAKER) (test code = 4.2 meq/L 3.6-5.5 379) BLOOD GAS, [id number] 13:16:00 Test Item Value Reference Range Interpretation [...] code = 1819) 80.0 % SODIUM NA-STAT [id number] 13:16:00 Test Item Value Reference Range Interpretation Comments SODIUM (BEAKER) (test code = 381) 133 meq/L 135-148 L HGB/HCT (H&H) - STAT [id number] 13:16:00 Test Item Value Reference Range Interpretation Comments HEMOGLOBIN (BEAKER) (test code = 6.3 g/dL 12.0-15.0 L 410) HEMATOCRIT (BEAKER) (test code = 19.0 % 36.0-45.0 L 411) CALCIUM, [id number] 13:15:00 Test Item Value Reference Range Interpretation Comments CALCIUM IONIZED (BEAKER) (test 0.98 mmol/L 1.12-1.27 L code = 698) PH, BLOOD (BEAKER) (test code = 7.34 1810) BLOOD GAS, [id number] 13:15:00 Test Item Value Reference Range Interpretation [...] (test code = 1819) 80.0 % GLUCOSE-STAT [id number] 13:14:00 Test Item Value Reference Range Interpretation Comments GLUCOSE RANDOM (BEAKER) (test code = 92 mg/dL 70-110 652) POTASSIUM-STAT [id number] 13:14:00 Test Item Value Reference Range Interpretation Comments POTASSIUM (BEAKER) (test code = 3.9 meq/L 3.6-5.5 379) BLOOD GAS, [id number] 10:54:00 Test Item Value Reference Range Interpretation [...] 1819) 100.0 % HGB/HCT (H&H) - STAT [id number] 10:54:00 Test Item Value Reference Range Interpretation Comments HEMOGLOBIN (BEAKER) (test code = 9.3 g/dL 12.0-15.0 L 410) HEMATOCRIT (BEAKER) (test code = 27.0 % 36.0-45.0 L 411) SODIUM NA-STAT [id number] 10:54:00 Test Item Value Reference Range Interpretation Comments SODIUM (BEAKER) (test code = 381) 132 meq/L 135-148 L GLUCOSE-STAT [id number] 10:52:00 Test Item Value Reference Range Interpretation Comments GLUCOSE RANDOM (BEAKER) (test code = 94 mg/dL 70-110 652) POTASSIUM-STAT [id number] 10:52:00 Test Item Value Reference Range Interpretation Comments POTASSIUM (BEAKER) (test code = 4.0 meq/L 3.6-5.5 379) HEMOGLOBIN [id number] 09:50:00 Test Item Value Reference Range Interpretation Comments HEMOGLOBIN A1C (BEAKER) (test code = 10.6 % 4.3-6.1 H 368) PLATELET AGGREGATION: FUNCTION [id number] 08:27:00 Test Item Value Reference Range Interpretation Comments WEAK ADP 63 % 60-91 RESULT(BEAKER) (test code = 2135) PLATELET FUNCTION 60-100% indicates SCREEN INTERP (BEAKER) normal platelet (test code = 2173) function [id number] Toshia Post MD ([facility]) (test code = (electronic signature) 2708) PLATELET COUNT AGG 198 K/CU MM 150-450 (BEAKER) (test code = 9228) for patients on clopidogrel in past two weeksPOCT-GLUCOSE [id number] 08:11:00 Test Item Value Reference Range Interpretation Comments POC-GLUCOSE METER 116 mg/dL 70-110 H TESTED AT [facility] 6720 ([facility]) (test code = MATTHIASAMANDA Dylon [place] 1538) [address] [id number] 07:10:00 Test Item Value Reference Range Interpretation Comments PHOSPHORUS (BEAKER) (test code = 4.5 mg/dL 2.3-4.7 604) [id number] 07:10:00 Test Item Value Reference Range Interpretation Comments MAGNESIUM (BEAKER) (test code = 2.1 mg/dL 1.6-2.6 627) BASIC METABOLIC [id number] 07:10:00 Test Item Value Reference Range Interpretation [...] = 700) CBC W/PLT COUNT & AUTO [id number] 06:46:00 Test Item Value Reference Range Interpretation [...] PERCENT (BEAKER) (test code = 2801) CALCIUM, [id number] 06:40:00 Test Item Value Reference Range Interpretation Comments CALCIUM IONIZED (BEAKER) (test 1.06 mmol/L 1.12-1.27 L code = 698) PH, BLOOD (BEAKER) (test code = 7.39 1810) POCT-GLUCOSE [id number] 23:22:00 Test Item Value Reference Range Interpretation Comments POC-GLUCOSE METER 165 mg/dL 70-110 H TESTED AT [facility] 6720 ([facility]) (test code = [place] 1538) [address] URINE PROTEIN ELECTROPHORESIS, [id number] 18:02:00 Test Item Value Reference Range Interpretation Comments PROTEIN, URINE 305 mg/dL 0-14 H (BEAKER) (test code = 1569) ALBUMIN URINE ELP 70.9 % (BEAKER) (test code = 1018) GAMMA GLOBULIN URINE 29.1 % (BEAKER) (test code = 1015) UPEP, ID-[id number] ([facility]) No monoclonal bands (test code = 2604) detected. [id number] Rocio Galindo MD ([facility]) (test code = (electronic signature) 9055) PROTEIN ELECTROPHORESIS, [id number] 17:57:00 Test Item Value Reference Range Interpretation [...] all globulin fractions. No monoclonal bands detected. [id number] Rocio Galindo MD (BEAKER) (test code = (electronic signature) 2616) PROTEIN TOTAL SERUM, 5.5 gm/dL 6.0-8.3 L SPEP (BEAKER) (test code = 3980) POCT-GLUCOSE [id number] 17:15:00 Test Item Value Reference Range Interpretation Comments POC-GLUCOSE METER 209 mg/dL 70-110 H TESTED AT [facility] 6720 (BEAKER) (test code = JULIANO Osborne [place] 1538) [address] BLOOD GAS, [id number] 15:54:00 Test Item Value Reference Range Interpretation [...] 36.0 % RAD, CHEST, 1 VIEW, NON [id number] 14:07:00Reason for exam:->SOB, hypoxemiaShould this be performed [...] Cespedes MDReport Verified Date/Time: 05/19/2017 14:07:07 Reading Location:[facility] C013W Consult Reading Room POCT-GLUCOSE [id number] 11:26:00 Test Item Value Reference Range Interpretation Comments POC-GLUCOSE METER 262 mg/dL 70-110 H TESTED AT [facility] 6720 (BEAKER) (test code = [facility] 1538) [address] POCT-GLUCOSE [id number] 07:37:00 Test Item Value Reference Range Interpretation Comments POC-GLUCOSE METER 170 mg/dL 70-110 H TESTED AT [facility] 6720 (BEAKER) (test code = [facility] 1538) [address] CALCIUM, [id number] 06:06:00 Test Item Value Reference Range Interpretation Comments CALCIUM IONIZED (BEAKER) (test 1.05 mmol/L 1.12-1.27 L code = 698) PH, BLOOD (BEAKER) (test code = 7.41 1810) [id number] 05:38:00 Test Item Value Reference Range Interpretation Comments PHOSPHORUS (BEAKER) (test code = 3.9 mg/dL 2.3-4.7 604) [id number] 05:38:00 Test Item Value Reference Range Interpretation Comments MAGNESIUM (BEAKER) (test code = 2.2 mg/dL 1.6-2.6 627) BASIC METABOLIC [id number] 05:38:00 Test Item Value Reference Range Interpretation [...] PATIEN TS. CBC W/PLT COUNT & AUTO [id number] 05:09:00 Test Item Value Reference Range Interpretation [...] PERCENT (BEAKER) (test code = 2801) POCT-GLUCOSE [id number] 22:08:00 Test Item Value Reference Range Interpretation Comments POC-GLUCOSE METER 263 mg/dL 70-110 H TESTED AT [place] [address] ([facility]) (test code = [facility] 1538) [address] POCT-GLUCOSE [id number] 17:20:00 Test Item Value Reference Range Interpretation Comments POC-GLUCOSE METER 233 mg/dL 70-110 H TESTED AT [place] [address] ([facility]) (test code = [facility] 1538) [address] POCT-GLUCOSE [id number] 08:28:00 Test Item Value Reference Range Interpretation Comments POC-GLUCOSE METER 154 mg/dL 70-110 H TESTED AT [place] [address] ([facility]) (test code = [facility] 1538) [address] BASIC METABOLIC [id number] 06:41:00 Test Item Value Reference Range Interpretation [...] S NOT APPLICABLE FOR DIALYSIS PATIEN TS. [id number] 06:35:00 Test Item Value Reference Range Interpretation Comments PHOSPHORUS (BEAKER) (test code = 4.1 mg/dL 2.3-4.7 604) [id number] 06:35:00 Test Item Value Reference Range Interpretation Comments MAGNESIUM (BEAKER) (test code = 2.1 mg/dL 1.6-2.6 627) CALCIUM, [id number] 06:22:00 Test Item Value Reference Range Interpretation Comments CALCIUM IONIZED (BEAKER) (test 1.10 mmol/L 1.12-1.27 L code = 698) PH, BLOOD (BEAKER) (test code = 7.38 1810) CBC W/PLT COUNT & AUTO [id number] 06:04:00 Test Item Value Reference Range Interpretation [...] PERCENT (BEAKER) (test code = 2801) POCT-GLUCOSE [id number] 03:44:00 Test Item Value Reference Range Interpretation Comments POC-GLUCOSE METER 220 mg/dL 70-110 H TESTED AT [place] [address] ([facility]) ([facility] 1538) [address] POCT-GLUCOSE [id number] 18:27:00 Test Item Value Reference Range Interpretation Comments POC-GLUCOSE METER 256 mg/dL 70-110 H TESTED AT [place] [address] ([facility]) (test [facility] = [facility] 1538) [address] POCT-GLUCOSE [id number] 15:45:00 Test Item Value Reference Range Interpretation Comments POC-GLUCOSE METER 278 mg/dL 70-110 H TESTED AT [facility] 6720 ([facility]) (test code = [facility] Dylon [facility] 1538) [address] POCT-GLUCOSE [id number] 13:22:00 Test Item Value Reference Range Interpretation Comments POC-GLUCOSE METER 278 mg/dL 70-110 H TESTED AT [facility] 6720 ([facility]) (test code = JULIANO [place]borne [place] 1538) [address] PLATELET AGGREGATION: FUNCTION [id number] 13:18:00 Test Item Value Reference Range Interpretation Comments WEAK ADP 66 % 60-91 RESULT(BEAKER) (test code = 2135) PLATELET FUNCTION 60-100% indicates SCREEN INTERP (BEAKER) normal platelet (test code = 2173) function [id number] Rigoberto Duenas MD (BEAKER) (test code = (electronic signature) 9607) PLATELET COUNT AGG 204 K/CU MM 150-450 (BEAKER) (test code = 2656) POCT-GLUCOSE [id number] 08:27:00 Test Item Value Reference Range Interpretation Comments POC-GLUCOSE METER 189 mg/dL 70-110 H TESTED AT [facility] 6720 (BEAKER) (test code = [place] 1538) [address] CALCIUM, [id number] 06:12:00 Test Item Value Reference Range Interpretation Comments CALCIUM IONIZED (BEAKER) (test 1.07 mmol/L 1.12-1.27 L code = 698) PH, BLOOD (BEAKER) (test code = 7.36 1810) [id number] 05:43:00 Test Item Value Reference Range Interpretation Comments PHOSPHORUS (BEAKER) (test code = 3.6 mg/dL 2.3-4.7 604) [id number] 05:43:00 Test Item Value Reference Range Interpretation Comments MAGNESIUM (BEAKER) (test code = 2.1 mg/dL 1.6-2.6 627) BASIC METABOLIC [id number] 05:43:00 Test Item Value Reference Range Interpretation [...] PATIEN TS. CBC W/PLT COUNT & AUTO [id number] 05:05:00 Test Item Value Reference Range Interpretation [...] EOSINOPHILS ABSOLUTE COUNT 0.27 K/ L 0.04-0.36 ([facility]) (test code = 416) BASOPHILS ABSOLUTE COUNT ([facility]) 0.06 K/ L 0.01-0.08 (test code = 417) IMMATURE GRANULOCYTES-RELATIVE 0 % 0-1 PERCENT ([facility]) (test code = 2801) POCT-GLUCOSE [id number] 21:32:00 Test Item Value Reference Range Interpretation Comments POC-GLUCOSE METER 176 mg/dL 70-110 H TESTED AT [place] [address] ([facility]) (test code = [facility] 1538) [address] POCT-GLUCOSE [id number] 20:27:00 Test Item Value Reference Range Interpretation Comments POC-GLUCOSE METER 161 mg/dL 70-110 H TESTED AT [place] [address] ([facility]) (test code = [facility] 1538) [address] POCT-GLUCOSE [id number] 18:23:00 Test Item Value Reference Range Interpretation Comments POC-GLUCOSE METER 185 mg/dL 70-110 H TESTED AT [place] [address] ([facility]) (test code = [facility] 1538) [address] POCT-GLUCOSE [id number] 13:26:00 Test Item Value Reference Range Interpretation Comments POC-GLUCOSE METER 282 mg/dL 70-110 H TESTED AT [place] [address] ([facility]) (test code = [facility] 1538) [address] URINE [id number] 10:12:00 Test Item Value Reference Range Interpretation Comments CULTURE ([facility]) (test >100,000 col/mL skin code = 1095) todd POCT-GLUCOSE [id number] 09:01:00 Test Item Value Reference Range Interpretation Comments POC-GLUCOSE METER 268 mg/dL 70-110 H TESTED AT [place] [address] ([facility]) (test code = [facility] 1538) [address] CALCIUM, [id number] 05:39:00 Test Item Value Reference Range Interpretation Comments CALCIUM IONIZED ([facility]) (test 0.84 mmol/L 1.12-1.27 L code = 698) PH, BLOOD ([facility]) (test code = 7.35 1810) BASIC METABOLIC [id number] 05:07:00 Test Item Value Reference Range Interpretation [...] S NOT APPLICABLE FOR DIALYSIS PATIEN TS. [id number] 05:06:00 Test Item Value Reference Range Interpretation Comments PHOSPHORUS (BEAKER) (test code = 3.2 mg/dL 2.3-4.7 604) [id number] 05:06:00 Test Item Value Reference Range Interpretation Comments MAGNESIUM (BEAKER) (test code = 2.3 mg/dL 1.6-2.6 627) CBC W/PLT COUNT & AUTO [id number] 04:42:00 Test Item Value Reference Range Interpretation [...] = 2801) RHEUMATOID FACTOR AB, REFLEX TO [id number] 01:52:00 Test Item Value Reference Range Interpretation Comments RHEUMATOID FACTOR ([facility]) (test Negative code = 573) POCT-GLUCOSE [id number] 21:57:00 Test Item Value Reference Range Interpretation Comments POC-GLUCOSE METER 105 mg/dL 70-110 TESTED AT [facility] 6720 ([facility]) (test code = [place] 1538) [address] POCT-GLUCOSE [id number] 18:11:00 Test Item Value Reference Range Interpretation Comments POC-GLUCOSE METER 312 mg/dL 70-110 H Notified R Sonya PIERRE/TESTED (BEAKER) (test code = AT [facility] 6720 [place] 1538) [facility] 7[address] 0 PET, CARDIAC PERFUSION MULTIPLE STUDIES, REST AND [id number] 16:28:00 Reason for exam:->pvcs, known cadFINAL REPORT PROCEDURE: Rest/Stress MYOCARDIAL PERFUSION PET with regadenoson\\XA9\\ CPT CODE: 79155 INDICATION: Defined extent and severity of known [...] is 23%. LVEF at stress is 36%. [employer] [place] CT images revealed a right pleural effusion [...] pleural and pericardial effusions. 7. No previous [facility] study for comparison. NONINVASIVE RISK STRATIFICATION: The above findings are considered high risk (>3% annual mortality rate) based on the following criteria: - Severe resting left ventricular dysfunction (LVEF 35%)- Stress-induced large perfusion defect (particularly if anterior)(JACC. 2012;59(9):857-81.) Signed: Natan Whaley Verified Date/Time: 05/15/2017 16:28:12 Reading Location: [address] ReadingRoom RAD, CHEST, 1 VIEW, NON [id number] 15:56:00Reason for exam:->SOBShould this be performed at the bedside?->YesFINAL REPORT Comparison: 05/14/2017 TECHNIQUE: Single view of the chest FINDINGS: There is a small right pleural effusion with nonspecific airspace disease. This is unchanged. Left lung is grossly clear. Cardiac silhouette is enlarged. IMPRESSION: 1. No acute cardiopulmonary disease. Signed: Sixto Monk MDReport Verified Date/Time: 05/15/2017 15:56:39 Reading Location: [facility] iology Reading Room POCT-GLUCOSE [id number] 12:54:00 Test Item Value Reference Range Interpretation Comments POC-GLUCOSE METER 308 mg/dL 70-110 H Notified Dylon Hassan MD/NATHAN ([place]) (test code = AT [facility] 67[address] [facility] 7[address] U/S, RENAL WITH [id number] 11:04:00Reason for exam:->tracy, htnShould this be performed [...] MDReport Verified Date/Time: 05/15/2017 11:04:01 Reading Location: [address] Ultrasound Reading Room ANA TITER AND [id number] 10:57:00 Test Item Value Reference Range Interpretation Comments ROGER TITER (BEAKER) (test code = :160 1541) ROGER PATTERN (BEAKER) (test code = Speckled 1781) ANTI-NUCLEAR ANTIBODY (ROGER)2017-05-15 10:56:00 Test Item Value Reference Range Interpretation Comments ANTI-NUCLEAR ANTIBODY (ROGER) (BEAKER) Positive Negative A (test code = 418) CALCIUM, [id number] 06:00:00 Test Item Value Reference Range Interpretation Comments CALCIUM IONIZED (BEAKER) (test 1.07 mmol/L 1.12-1.27 L code = 698) PH, BLOOD (BEAKER) (test code = 7.28 1810) HEPATITIS PANEL, [id number] 05:01:00 Test Item Value Reference Range Interpretation Comments HEPATITIS A IGM ANTIBODY (BEAKER) Nonreactive Nonreactive (test code = 498) HEPATITIS B CORE IGM ANTIBODY Nonreactive Nonreactive (BEAKER) (test code = 645) HEPATITIS C ANTIBODY (BEAKER) Nonreactive Nonreactive (test code = 367) HEPATITIS B SURFACE ANTIGEN (2) Nonreactive Nonreactive (BEAKER) (test code = 2585) BASIC METABOLIC [id number] 04:48:00 Test Item Value Reference Range Interpretation [...] 697) EGFR (BEAKER) (test 18 mL/min/1.73 ESTIMA MRENA GFR IS code = 1092) sq m NOT ACCURATE CREATININE CLEARANCE IN PREDICTING GLOMERULAR FILTRATION RATE . ESTIMATED GFR I S NOT APPLICABLE FOR DIALYSIS PATIEN TS. URIC [id number] 04:41:00 Test Item Value Reference Range Interpretation Comments URIC ACID (BEAKER) (test code = 10.3 mg/dL 2.6-7.2 H 773) [id number] 04:41:00 Test Item Value Reference Range Interpretation Comments MAGNESIUM (BEAKER) (test code = 2.0 mg/dL 1.6-2.6 627) [id number] 04:41:00 Test Item Value Reference Range Interpretation Comments PHOSPHORUS (BEAKER) (test code = 4.2 mg/dL 2.3-4.7 604) COMPLEMENT COMPONENT [id number] 04:38:00 Test Item Value Reference Range Interpretation Comments C4 COMPLEMENT (BEAKER) (test code = 28 mg/dL 15-57 394) COMPLEMENT COMPONENT [id number] 04:38:00 Test Item Value Reference Range Interpretation Comments C3 COMPLEMENT (BEAKER) (test code = 103 mg/dL 82-193 393) CBC W/PLT COUNT & AUTO [id number] 04:22:00 Test Item Value Reference Range Interpretation [...] PERCENT (BEAKER) (test code = 2801) POCT-GLUCOSE [id number] 21:46:00 Test Item Value Reference Range Interpretation Comments POC-GLUCOSE METER 173 mg/dL 70-110 H TESTED AT [place] [address] ([facility]) (test code = [facility] 1538) [address] POCT-GLUCOSE [id number] 21:46:00 Test Item Value Reference Range Interpretation Comments POC-GLUCOSE METER 154 mg/dL 70-110 H TESTED AT [place] [address] ([facility]) (test code = [facility] 1538) [address] POCT-GLUCOSE [id number] 18:17:00 Test Item Value Reference Range Interpretation Comments POC-GLUCOSE METER 175 mg/dL 70-110 H TESTED AT [place] [address] ([facility]) (test code = [facility] 1538) [address] RAD, CHEST, 1 VIEW, NON [id number] 14:56:00Reason for exam:->SOBShould this be performed at the bedside?->YesFINAL REPORT INDICATION: SOB COMPARISON: May 13, 2017 TECHNIQUE: Chest radiograph, single view, portable technique. FINDINGS / IMPRESSION: Enlarged heart shadow, small rightpleural effusion, and pulmonary venous congestion, again demonstrated. No pneumothorax or consolidation. Osseous structures unremarkable. Signed: Thania Dwyer MDReport Verified Date/Time: 05/14/2017 14:56:58 Reading Location: [facility] Reading Room POCT-GLUCOSE [id number] 12:18:00 Test Item Value Reference Range Interpretation Comments POC-GLUCOSE METER 313 mg/dL 70-110 H TESTED AT [facility] 6720 (BEAKER) (test code = [place] 1538) [address] HIV-1 ANTIGEN WITH HIV-1/2 [id number] 12:07:00 Test Item Value Reference Range Interpretation Comments HIV-1 ANTIGEN WITH HIV 1\\T\\2 Nonreactive Nonreactive ANTIBODY (2) (BEAKER) (test code = 2586) CALCIUM, [id number] 06:37:00 Test Item Value Reference Range Interpretation Comments CALCIUM IONIZED (BEAKER) (test 1.08 mmol/L 1.12-1.27 L code = 698) PH, BLOOD (BEAKER) (test code = 7.25 1810) BASIC METABOLIC [id number] 06:26:00 Test Item Value Reference Range Interpretation [...] pg/mL 0-100 H (test code = 700) [id number] 06:25:00 Test Item Value Reference Range Interpretation Comments PHOSPHORUS (BEAKER) (test code = 5.7 mg/dL 2.3-4.7 H 604) [id number] 06:25:00 Test Item Value Reference Range Interpretation Comments MAGNESIUM (BEAKER) (test code = 1.5 mg/dL 1.6-2.6 L 627) CBC W/PLT COUNT & AUTO [id number] 06:07:00 Test Item Value Reference Range Interpretation [...] PERCENT (BEAKER) (test code = 2801) POCT-GLUCOSE [id number] 22:38:00 Test Item Value Reference Range Interpretation Comments POC-GLUCOSE METER 262 mg/dL 70-110 H TESTED AT [facility] 6720 (BEAKER) (test code = [place] 1538) [address] PROTEIN, RANDOM [id number] 22:18:00 Test Item Value Reference Range Interpretation Comments PROTEIN, URINE (BEAKER) (test code 641 mg/dL 0-14 H = 1569) CREATININE, RANDOM [id number] 22:07:00 Test Item Value Reference Range Interpretation Comments CREATININE URINE (BEAKER) (test 124.9 mg/dL code = 375) Reference Range: No NormalsURINALYSIS W/ [id number] 22:03:00 Test Item Value Reference Range Interpretation [...] 1585) SOURCE(BEAKER) (test code = Urine, Voided 0448) [id number] 19:49:00 Test Item Value Reference Range Interpretation Comments SODIUM (BEAKER) (test 136 meq/L 136-145 code = 381) POTASSIUM (BEAKER) 5.1 meq/L 3.5-5.1 Specimen slightly (test code = 379) hemolyzed CHLORIDE (BEAKER) 104 meq/L 98-107 (test code = 382) CO2 (BEAKER) (test 25 meq/L 22-29 code = 355) Call if K > 5POCT-GLUCOSE [id number] 11:37:00 Test Item Value Reference Range Interpretation Comments POC-GLUCOSE METER 293 mg/dL 70-110 H TESTED AT [facility] 6720 (BEAKER) (test code = [place] 1538) [address] RAD, CHEST, 1 VIEW, NON [id number] 10:22:00Reason for exam:->SOBShould this be performed at the bedside?->YesFINAL REPORT Chest one view Discussion: There is cardiomegaly and interstitial congestion. A small right-sided effusion is noted. No pneumothorax. IMPRESSIONS: Suspected CHF. Signed: Jeannette Nava Verified Date/Time: 05/13/2017 10:22:34 Reading Location: [facility] Radiology Reading Room POCT-GLUCOSE METER 2017-05-13 08:34:00 Test Item Value Reference Range Interpretation Comments POC-GLUCOSE METER 178 mg/dL 70-110 H TESTED AT [facility] 6720 (BEAKER) (test code = [place] 1538) [address] POCT-GLUCOSE [id number] 06:53:00 Test Item Value Reference Range Interpretation Comments POC-GLUCOSE METER 167 mg/dL 70-110 H TESTED AT [facility] 6720 (BEAKER) (test code = [place] 1538) [address] [id number] 04:48:00 Test Item Value Reference Range Interpretation Comments BLOOD UREA NITROGEN (BEAKER) (test 36 mg/dL 7-21 H code = 354) [id number] 04:48:00 Test Item Value Reference Range Interpretation Comments SODIUM (BEAKER) (test code = 381) 139 meq/L 136-145 POTASSIUM (BEAKER) (test code = 5.2 meq/L 3.5-5.1 H 379) CHLORIDE (BEAKER) (test code = 382) 109 meq/L 98-107 H CO2 (BEAKER) (test code = 355) 23 meq/L 22-29 [id number] 04:48:00 Test Item Value Reference Range Interpretation [...] WBC 0-0 (BEAKER) (test code = 413) [id number] 23:29:00 Test Item Value Reference Range Interpretation Comments ACTIVATED CLOTTING TIME 136 sec TEST ED AT [place] [address] ([facility]) (test code = [place]O [place] [address]) [address] [id number] 20:13:00 Test Item Value Reference Range Interpretation Comments ACTIVATED CLOTTING TIME 175 sec TEST ED AT [place] [address] ([facility]) (test code = JULIANO Osborne [place] [address]) [address] [id number] 18:36:00 Test Item Value Reference Range Interpretation Comments ACTIVATED CLOTTING TIME 202 sec TEST ED AT [place] [address] ([facility]) (test code = JULIANO Osborne [place] [address]) [address] [id number] 18:03:00 Test Item Value Reference Range Interpretation Comments ACTIVATED CLOTTING TIME 208 sec TEST ED AT [place] [address] ([facility]) (test code = MATTHIASIL Dylon [place] [address]) [address] BASIC METABOLIC [id number] 11:57:00 Test Item Value Reference Range Interpretation [...] NOT APPLICABLE FOR DIALYSIS PATIEN TS. PROTHROMBIN [id number] 11:15:00 Test Item Value Reference Range Interpretation [...] if on CoumadinCBC W/PLT COUNT & AUTO [id number] 11:01:00 Test Item Value Reference Range Interpretation [...] PERCENT (BEAKER) (test code = 2801) POCT-GLUCOSE [id number] 12:35:00 Test Item Value Reference Range Interpretation Comments POC-GLUCOSE METER 249 mg/dL 70-110 H TESTED AT [place] [address] ([facility]) (test code = [facility] 1538) [address] POCT-GLUCOSE [id number] 09:10:00 Test Item Value Reference Range Interpretation Comments POC-GLUCOSE METER 155 mg/dL 70-110 H TESTED AT [place] [address] ([facility]) (test code = [facility] 1538) [address] BASIC METABOLIC [id number] 05:39:00 Test Item Value Reference Range Interpretation [...] S NOT APPLICABLE FOR DIALYSIS PATIEN TS. [id number] 05:27:00 Test Item Value Reference Range Interpretation Comments PHOSPHORUS (BEAKER) (test code = 5.0 mg/dL 2.3-4.7 H 604) [id number] 05:27:00 Test Item Value Reference Range Interpretation Comments MAGNESIUM (BEAKER) (test code = 1.6 mg/dL 1.6-2.6 627) POCT-GLUCOSE [id number] 05:25:00 Test Item Value Reference Range Interpretation Comments POC-GLUCOSE METER 144 mg/dL 70-110 H TESTED AT [place] [address] ([facility]) (test code = [facility] [employer] [place] 1538) [address] PROTHROMBIN [id number] 04:58:00 Test Item Value Reference Range Interpretation Comments PROTIME (BEAKER) (test code = 14.2 seconds 11.7-14.7 759) INR (BEAKER) (test code = 370) 1.1 <=5.9 RECOMMENDED COUMADIN/WARFARIN INR THERAPY RANGESSTANDARD DOSE: 2.0 - 3.0 Includes: PROPHYLAXIS forvenous thrombosis, systemic embolization; TREATMENT for venous thrombosis and/or pulmonary embolus.HIGH RISK: Target INR is 2.5-3.5 for patients with mechanical heart valves.POCT-GLUCOSE [id number] 23:55:00 Test Item Value Reference Range Interpretation Comments POC-GLUCOSE METER 86 mg/dL 70-110 TESTED AT [facility] 67[address] ([facility]) (test code = [place] [address] 1538) B-TYPE NATRIURETIC FACTOR (BNP)2017-04-22 18:13:00 Test Item Value Reference Range Interpretation Comments B-TYPE NATRIURETIC PEPTIDE 1203 pg/mL 0-100 H ([facility]) (test code = 700) POCT-GLUCOSE [id number] 17:36:00 Test Item Value Reference Range Interpretation Comments POC-GLUCOSE METER 259 mg/dL 70-110 H TESTED AT [facility] 6720 ([facility]) (test code = JULIANO Osborne [facility] 1538) [address] HEMOGLOBIN [id number] 14:24:00 Test Item Value Reference Range Interpretation Comments HEMOGLOBIN A1C (BEAKER) (test code = 10.5 % 4.3-6.1 H 368) POCT-GLUCOSE [id number] 12:34:00 Test Item Value Reference Range Interpretation Comments POC-GLUCOSE METER 207 mg/dL 70-110 H TESTED AT [facility] 6720 ([facility]) (test code = [facility] 1538) [address] [id number] 07:53:00 Test Item Value Reference Range Interpretation Comments PHOSPHORUS (BEAKER) (test code = 3.9 mg/dL 2.3-4.7 604) [id number] 07:53:00 Test Item Value Reference Range Interpretation Comments MAGNESIUM (BEAKER) (test code = 1.6 mg/dL 1.6-2.6 627) BASIC METABOLIC [id number] 07:53:00 Test Item Value Reference Range Interpretation [...] NOT APPLICABLE FOR DIALYSIS PATIEN TS. TROPONIN [id number] 07:29:00 Test Item Value Reference Range Interpretation [...] acidosis, acute neurological disease, and persistent tachyarrhythmia.PROTHROMBIN [id number] 07:01:00 Test Item Value Reference Range Interpretation Comments PROTIME (ROBERT) (test code = 13.8 seconds 11.7-14.7 759) INR (ROBERT) (test code = 370) 1.1 <=5.9 RECOMMENDED COUMADIN/WARFARIN INR THERAPY RANGESSTANDARD DOSE: 2.0 - 3.0 Includes: PROPHYLAXIS forvenous thrombosis, systemic embolization; TREATMENT for venous thrombosis and/or pulmonary embolus.HIGH RISK: Target INR is 2.5-3.5 for patients with mechanical heart valves.POCT-GLUCOSE [id number] 06:28:00 Test Item Value Reference Range Interpretation Comments POC-GLUCOSE METER 198 mg/dL 70-110 H TESTED AT [facility] 6720 (ROBERT) (test code = [place] 1538) [address] CREATINE KINASE (CK), TOTAL AND [id number] 00:49:00 Test Item Value Reference Range Interpretation Comments CREATINE KINASE TOTAL (SERVANDOAKER) 69 U/L 29-200 (test code = 380) CREATINE KINASE-MB (SERVANDOAKER) (test 4.3 ng/mL 0.0-6.6 code = 750) CREATINE KINASE-MB INDEX (ROBERT) 6.2 % (test code = 395) CK-MB Reference Range:<6.7 Normal6.7-10.0 Borderline>10.0 AbnormalTROPONIN [id number] 00:49:00 Test Item Value Reference Range Interpretation Comments TROPONIN I (BEDANIELA) (test code = 0.05 ng/mL 0.00-0.03 H [...] acidosis, acute neurological disease, and persistent tachyarrhythmia.POCT-GLUCOSE [id number] 20:44:00 Test Item Value Reference Range Interpretation Comments POC-GLUCOSE METER 269 mg/dL 70-110 H TESTED AT [facility] 6720 (ROBERT) (test code = [place] 1532) [address]
[2020-09-21 18:28] LABS: Protime INR 1.25
[2020-09-21 18:29] LABS: Absolute Lymphocytes (CBC) 2.1 K/uL (0.7-4.9); Basophils % 1.3 % (0-1.3); Hematocrit 36.6 % (36.0-45.0); Lymphocytes % 26.7 % (15.3-44.8); MPV 6.9 fL (7.6-11.3); RBC Red Blood Cell Count 4.29 M/uL (3.86-4.86)
--- NOTE | 2020-09-21 18:48 | RAD REPORT ---
EXAM DESCRIPTION: RAD - Chest Single View - 09/21/2020 6:24 pm CLINICAL HISTORY: CHEST PAIN COMPARISON: July 10 TECHNIQUE: AP portable chest image was obtained 09/21/2020 6:24 pm . FINDINGS: Lungs are underinflated but similar to comparison. Left lung field is clear. Right pleural effusion with right base atelectasis present. This is similar to comparison. Dialysis catheter is in place. Sternotomy wires are in place. Upper right lung field is clear. Cardiomegaly is present simil ar to comparison. No pneumothorax. No acute bony abnormality seen. No acute aortic findings suspected . IMPRESSION: Moderate right pleural effusion with right base atelectasis similar to comparison. Cardiomegaly with no vascular engorgement or other findings of significant failure or volume overload .
[2020-09-21 18:49] LABS: Albumin 2.3 g/dL (3.4-5.0); Bilirubin Direct 0.1 mg/dL (0-0.2); Bilirubin Total 0.4 mg/dL (0.2-1.0); Magnesium 1.9 mg/dL (1.8-2.4); Potassium 4.9 mmol/L (3.5-5.1); Protein, Total 6.8 g/dL (6.4-8.2); Troponin (Emerg Dept Use Only) 0.05 ng/mL (0.0-0.045)
--- NOTE | 2020-09-21 19:00 | ER ---
Nurse's Notes [facility] Name: Christy Priest Age: 65 yrs Sex: Female : 1955 Arrival Date: 09/21/2020 Time: 17:39 Bed 7 Private MD: Diagnosis: Other chest pain Presentation: 09/21 17:31 Chief complaint: EMS states: mid abdominal pain x2 days, chest pain that started this sv morning.. EKG-normal BP 150/94 HR-73 100% RA. Coronavirus screen: Client denies travel out of the [place] in the last 14 days. At this time, the client does not indicate any symptoms associated with coronavirus-19. Ebola Screen: No symptoms or risks identified at this time. Initial Sepsis Screen: Does the patient meet any 2 criteria? No. Patient's initial sepsis screen is negative. Does the patient have a suspected source of infection? No. Patient's initial sepsis screen is negative. Risk Assessment: Do you want to hurt yourself or someone else? Patient reports no desire to harm self or others. Onset of symptoms was September 21, 2020. 17:31 Method Of Arrival: EMS: [facility] sv 17:31 Acuity: DENNY 3 sv Triage Assessment: 17:31 General: Appears in no apparent distress. uncomfortable, well developed, Behavior is sv calm, cooperative, appropriate for age. Pain: Complains of pain in chest and abdomen. EENT: swelling noted to bilateral eyes, pt reports that its her sinuses.. Neuro: Level of Consciousness is awake, alert, obeys commands, Oriented to person, place, time, situation, Moves all extremities. Full function. Cardiovascular: Patient's skin is warm and dry. Pulses are palpable in right radial artery and left radial artery Rhythm is sinus rhythm. Respiratory: Airway is patent Respiratory effort is even, unlabored, Respiratory pattern is regular, symmetrical. GI: Abdomen is round Reports lower abdominal pain, upper abdominal pain. Derm: Skin is normal, Pt has multiple bruises noted on her body. Historical: - Allergies: 17:44 Augmentin; sv 17:44 basil; sv 17:44 Clindamycin; sv 17:44 Morphine; sv 17:44 Nitroglycerin; sv 17:44 Tramadol HCl; sv 17:44 Trazodone; sv 17:44 Vancomycin; sv 17:44 Vicodin; sv - Home Meds: 17:44 gabapentin Oral [Active]; Lasix Oral [Active]; Plavix Oral [Active]; Allopurinol Oral sv [Active]; Aspirin Oral [Active]; atorvastatin oral oral [Active]; Coreg Oral [Active]; Hydralazine Oral [Active]; Levemir U-100 Insulin 100 unit/mL subcutaneous soln [Active]; Lisinopril Oral [Active]; nifedipine Oral [Active]; sertraline oral oral [Active]; - PMHx: 17:44 ADD/ADHD; CHF; COPD; Diabetes - IDDM; Dialysis; ESRD; High Cholesterol; Hypertension; sv triple bypass; uterine cancer; - PSHx: 17:44 CABG; cardiac stents; sv - Immunization history:: Adult Immunizations up to date. - Social history:: Smoking status: . - Family history:: not pertinent. Screenin:29 Abuse screen: Denies threats or abuse. Denies injuries from another. Nutritional hb screening: No deficits noted. Tuberculosis screening: No symptoms or risk factors identified. Fall Risk Total Merlos Fall Scale indicates Low Risk Score (25-44 pts). Fall prevention measures have been instituted. Side Rails Up X 2 Frequent Obs/Assesments occuring As available Patient and Family Educated on Fall Prevention Program and strategies. Assessment: 18:29 Reassessment: Patient appears in no apparent distress at this time. Patient and/or hb family updated on plan of care and expected duration. Pain level reassessed. Patient is alert, oriented x 3, equal unlabored respirations, skin warm/dry/pink. 19:28 General: Appears in no apparent distress. Behavior is calm, cooperative. Pain: ak2 Complains of pain in abdomen. 22:14 Reassessment: Patient and/or family updated on plan of care and expected duration. Pain ea level reassessed. Patient is alert, oriented x 3, equal unlabored respirations, skin warm/dry/pink. Vital Signs: 17:31 BP 126 / 75; Pulse 71; Resp 16; Temp 98.7; Pulse Ox 100% ; sv 18:33 BP 146 / 84; Pulse 73; Resp 18; Pulse Ox 97% on R/A; sv 19:28 BP 144 / 85; Pulse 75; Resp 16; Pulse Ox 98% on R/A; ak2 21:25 BP 154 / 92; Pulse 71; Resp 18; Pulse Ox 100% on R/A; ak2 22:26 BP 147 / 85; Pulse 71; Resp 18; Pulse Ox 96% ; ea ED Course: 17:39 Patient arrived in ED. sv 17:39 Edith Alanzi RN is Primary Nurse. sv 17:41 Triage completed. sv 17:45 Inserted saline lock: 20 gauge in right forearm, using aseptic technique. Blood sv collected. Flushed right forearm with 5 ml normal saline. 17:49 Annmarie Petersen MD is Attending Physician. ma2 18:23 CBC with Diff Sent. sv 18:23 Basic Metabolic Panel Sent. sv 18:24 XRAY Chest (1 view) In Process Unspecified. EDMS 18:29 Patient maintains SpO2 saturation greater than 95% on room air. hb 18:29 Arm band placed on. hb 18:29 Patient has correct armband on for positive identification. Bed in low position. Call hb light in reach. Side rails up X2. quality assurance monitor body on. Pulse ox on. NIBP on. 18:59 Oleksandr Nettles MD is Hospitalizing Provider. ma2 19:14 Primary Nurse role handed off by Edith Alaniz RN sv 19:18 James Castañeda is Primary Nurse. ak2 19:43 No provider procedures requiring assistance completed. Patient admitted, IV remains in ea place. Administered Medications: 19:19 Drug: Aspirin Chewable Tablet 324 mg Route: PO; ak2 19:43 Follow up: Response: No adverse reaction ea 19:43 Drug: HYDROcodone-acetaminophen 5 mg-325 mg 1 tabs Route: PO; ea 22:27 Follow up: Response: No adverse reaction ea 22:22 Drug: Benadryl (diphenhydrAMINE) 25 mg Route: PO; ak2 22:27 Follow up: Response: No adverse reaction ea Outcome: 19:00 Decision to Hospitalize by Provider. ma2 19:43 Instructed on the need for admit, Demonstrated understanding of instructions. ea 22:26 Condition: stable ea 22:40 Admitted to Tele ak2 22:41 Patient left the ED. ak2 Signatures: Dispatcher [employer] EDMS Edith Alaniz RN RN Karma Gooden RN RN Ana Menjivar RN RN Annmarie Hollingsworth MD MD ma2 James Castañeda wi2
--- NOTE | 2020-09-21 19:00 | EDPHYS ---
Physician Documentation [facility] Name: Christy Priest Age: 65 yrs Sex: Female : 1955 Arrival Date: 09/21/2020 Time: 17:39 Bed 7 Private MD: ED Physician Annmarie Petersen HPI: 09/21 18:13 This 65 yrs old Female presents to ER via EMS with complaints of Chest Pain, ma2 Abdominal Pain. 18:13 Onset: gradually, 1 day(s) ago. Associated signs and symptoms: Pertinent negatives: ma2 cough, headache, lower extremity swelling. Severity of pain: At its worst the pain was mild. The patient has experienced a previous episode. Historical: - Allergies: 17:44 Augmentin; sv 17:44 basil; sv 17:44 Clindamycin; sv 17:44 Morphine; sv 17:44 Nitroglycerin; sv 17:44 Tramadol HCl; sv 17:44 Trazodone; sv 17:44 Vancomycin; sv 17:44 Vicodin; sv - Home Meds: 17:44 gabapentin Oral [Active]; Lasix Oral [Active]; Plavix Oral [Active]; Allopurinol Oral sv [Active]; Aspirin Oral [Active]; atorvastatin oral oral [Active]; Coreg Oral [Active]; Hydralazine Oral [Active]; Levemir U-100 Insulin 100 unit/mL subcutaneous soln [Active]; Lisinopril Oral [Active]; nifedipine Oral [Active]; sertraline oral oral [Active]; - PMHx: 17:44 ADD/ADHD; CHF; COPD; Diabetes - IDDM; Dialysis; ESRD; High Cholesterol; Hypertension; sv triple bypass; uterine cancer; - PSHx: 17:44 CABG; cardiac stents; sv - Immunization history:: Adult Immunizations up to date. - Social history:: Smoking status: . - Family history:: not pertinent. ROS: 18:13 Constitutional: Negative for fever, chills, and weight loss. ma2 18:13 All other systems are negative. Exam: 18:13 Constitutional: This is a well developed, well nourished patient who is awake, alert, ma2 and in no acute distress. Chest/axilla: Normal chest wall appearance and motion. Nontender with no deformity. No lesions are appreciated. Cardiovascular: Regular rate and rhythm with a normal S1 and S2. No gallops, murmurs, or rubs. Normal PMI, no JVD. No pulse deficits. Respiratory: Lungs have equal breath sounds bilaterally, clear to auscultation and percussion. No rales, rhonchi or wheezes noted. No increased work of breathing, no retractions or nasal flaring. Abdomen/GI: Soft, non-tender, with normal bowel sounds. No distension or tympany. No guarding or rebound. No evidence of tenderness throughout. Skin: Warm, dry with normal turgor. Normal color with no rashes, no lesions, and no evidence of cellulitis. MS/ Extremity: Pulses equal, no cyanosis. Neurovascular intact. Full, normal range of motion. Neuro: Awake and alert, GCS 15, oriented to person, place, time, and situation. Cranial nerves II-XII grossly intact. Motor strength 5/5 in all extremities. Sensory grossly intact. Cerebellar exam normal. Normal gait. Vital Signs: 17:31 BP 126 / 75; Pulse 71; Resp 16; Temp 98.7; Pulse Ox 100% ; sv 18:33 BP 146 / 84; Pulse 73; Resp 18; Pulse Ox 97% on R/A; sv 19:28 BP 144 / 85; Pulse 75; Resp 16; Pulse Ox 98% on R/A; ak2 21:25 BP 154 / 92; Pulse 71; Resp 18; Pulse Ox 100% on R/A; ak2 22:26 BP 147 / 85; Pulse 71; Resp 18; Pulse Ox 96% ; ea MDM: 18:13 Differential diagnosis: abnormal EKG, anxiety, coronary artery disease chest wall pain, ma2 gastroesophageal reflux disease (GERD). 18:38 Patient medically screened. [facility] 18:58 Data reviewed: vital signs, nurses notes. Counseling: I had a detailed discussion with [facility] the patient and/or guardian regarding: the historical points, exam findings, and any diagnostic results supporting the discharge/admit diagnosis, the presence of at least one elevated blood pressure reading (>120/80) during this emergency department visit, the need for outpatient follow up. Response to treatment: the patient's symptoms have mildly improved after treatment. 09/21 17:50 Order name: Basic Metabolic Panel [facility] 09/21 17:50 Order name: CBC with Diff [facility] 09/21 17:50 Order name: LFT's; Complete Time: 18:56 ma2 09/21 17:50 Order name: Magnesium; Complete Time: 18:56 sd2 09/21 17:50 Order name: NT PRO-BNP; Complete Time: 18:56 sd2 09/21 17:50 Order name: PT-INR; Complete Time: 18:56 sd2 09/21 17:50 Order name: Troponin (emerg Dept Use Only); Complete Time: 18:56 ma2 09/21 17:50 Order name: XRAY Chest (1 view); Complete Time: 18:56 ma2 09/21 17:50 Order name: Lipase; Complete Time: 18:56 sd2 09/21 17:50 Order name: Basic Metabolic Panel; Complete Time: 18:56 EDMS 09/21 17:50 Order name: CBC with Automated Diff; Complete Time: 18:56 MS 09/21 19:54 Order name: COVID-19 : Document "Date of Symptom Onset" if Symptomatic. em 09/21 19:58 Order name: CORONAVIRUS EDOH 09/21 20:58 Order name: SARS-COV-2 RT PCR [facility] 09/21 17:50 Order name: EKG; Complete Time: 17:51 sd2 09/21 17:50 Order name: Cardiac monitoring; Complete Time: 18:23 ma2 09/21 17:50 Order name: EKG - Nurse/Tech; Complete Time: 18:23 ma2 09/21 17:50 Order name: IV Saline Lock; Complete Time: 18:23 sd2 09/21 17:50 Order name: Labs collected and sent; Complete Time: 18:23 sd2 09/21 17:50 Order name: O2 Per Protocol; Complete Time: 17:51 ma2 09/21 17:50 Order name: O2 Sat Monitoring; Complete Time: 17:51 ma2 Administered Medications: 19:19 Drug: Aspirin Chewable Tablet 324 mg Route: PO; ak2 19:43 Follow up: Response: No adverse reaction ea 19:43 Drug: HYDROcodone-acetaminophen 5 mg-325 mg 1 tabs Route: PO; ea 22:27 Follow up: Response: No adverse reaction ea 22:22 Drug: Benadryl (diphenhydrAMINE) 25 mg Route: PO; ak2 22:27 Follow up: Response: No adverse reaction ea Disposition: 09/21/20 19:00 Hospitalization ordered by Oleksandr Nettles for Observation. Preliminary diagnosis is Other chest pain. - Bed requested for Telemetry/MedSurg (observation). - Status is Observation. ak2 - Condition is Stable. - Problem is new. - Symptoms are unchanged. Signatures: Dispatcher [employer] EDEdith Wheat RN Jennifer Burks RN RN tl1 Ana Menjivar RN RN ea Alzahri, Mohammad, MD MD ma2 James Castañeda ak2 Corrections: (The following items were deleted from the chart) 21:54 19:00 Hospitalization Ordered by Oleksandr Nettles MD for Observation. Preliminary tl1 diagnosis is Other chest pain. Bed requested for Telemetry/MedSurg (observation). Status is Observation. Condition is Stable. Problem is new. Symptoms are unchanged. ma2 22:41 21:54 09/21/2020 19:00 Hospitalization Ordered by Oleksandr Nettles MD for Observation. ak2 Preliminary diagnosis is Other chest pain. Bed requested for Telemetry/MedSurg (observation). Status is Observation. Condition is Stable. Problem is new. Symptoms are unchanged. tl1
[2020-09-21] MEDS ORDERED: ASPIRIN 81 MG CHEWABLE TABLET ONE (19:39)
[2020-09-21] MEDS ORDERED: HYDROCODONE/APAP 5/325 MG TAB ONE (20:02)
--- NOTE | 2020-09-21 20:26 | P.HP ---
Certification for Inpatient Patient admitted to: Observation With expected LOS: <2 Midnights Patient will require the following post-hospital care: None Practitioner: I am a practitioner with admitting privileges, knowledge of patient current condition, hospital course, and medical plan of care. Services: Services provided to patient in accordance with Admission requirements found in Title 42 Section 412.3 of the Code of Federal Regulations Patient History Date of Service: 09/21/20 Primary Care Provider: none Reason for admission: Chest pain History of Present Illness: 65-year-old female with history of ESRD on HD TTS, chronic diastolic congestive heart failure, CAD status post CABG, COPD, hypertension, chronic venous hypertension with ulcerations to the lower extremities presents emergency department for chest pain. Patient reports epigastric pain that started yesterday and chest pain that started today radiating to the neck, left shoulder, left back area described as pressure-like and intermittent in nature. Patient evaluated in the emergency department, EKG unremarkable chest x-ray demonstrates moderate right pleural effusion with right base atelectasis which is similar to comparison, labs significant for sodium 135 creatinine 2.84 GFR 17 troponin 0.05 BNP 11687, patient reports that she did not go to dialysis today as she was not feeling well. Patient reports some body aches over the course of the last couple of days. Patient had heart catheterization 05/01/2020 with balloon angioplasty to the left circumflex. Allergies morphine Allergy (Severe, Verified 04/26/20 23:39) Anaphylaxis vancomycin Allergy (Intermediate, Verified 04/26/20 23:39) Shortness of breath basil Allergy (Verified 04/26/20 23:39) Nausea/Vomiting tramadol Allergy (Verified 04/26/20 23:39) Nausea/Vomiting trazodone Allergy (Verified 04/26/20 23:39) Nausea/Vomiting nitroglycerin Adverse Reaction (Mild, Verified 04/26/20 23:39) Nausea/Vomiting Home Medications: Allopurinol 100 mg PO BID 06/13/20 Aspirin 81 mg PO DAILY 06/13/20 Atorvastatin Calcium [Lipitor] 40 mg PO BEDTIME 06/13/20 Clopidogrel Bisulfate [Plavix*] 75 mg PO DAILY 06/13/20 Fluticasone [Flovent Hfa 110*] 2 puff IN DAILY 06/13/20 Hydralazine [Apresoline*] 25 mg PO TID 06/13/20 carvediloL [Carvedilol] 6.25 mg PO BID 06/13/20 lisinopriL [Prinivil*] 5 mg PO DAILY 06/13/20 Cholestyramine (with Sugar) [Cholestyramine Packet] 1 packet PO DAILY PRN 06/14/20 Furosemide [Lasix*] 2 tab PO BID 06/14/20 Gabapentin [Neurontin*] 200 mg PO TID 06/14/20 Sertraline HCl 25 mg PO DAILY 06/14/20 Ondansetron [Ondansetron Odt] 4 mg PO Q4HP PRN 07/11/20 Dicyclomine HCl 20 mg PO Q6HP PRN #30 07/19/20 Epoetin [Retacrit] 4,000 unit IV EVERY HD vial 07/19/20 Heparin [Heparin 1,000 units/mL *] 6,000 unit IV EVERY HD PRN vial 07/19/20 Hydrocodone 7.5/APAP 325 [[place] 7.5/325 mg*] 1 tab PO Q6H PRN #15 tab 07/19/20 Lactobacillus Acidophilus [Acidophilus] 1 each PO TID #90 capsule 07/19/20 Lipase/Protease/Amylase [Creon Dr 12,000 Units Capsule] 3 cap PO TIDWM #270 cap 07/19/20 Medihoney [Medihoney Woundcare Gel*] 1 appl TOP TuThSa@0900 #1 tube 07/19/20 Sevelamer Carbonate [Renvela*] 800 mg PO TIDWM #90 tablet 07/19/20 metroNIDAZOLE [Flagyl*] 250 mg PO TID #42 tablet 07/19/20 - Past Medical/Surgical History Diabetic: Yes -: COPD -: Hypertension -: CAD, CABG x4 vessels (August 2017) -: Diabetes mellitus type 2, insulin-dependent -: Chronic combined systolic/diastolic CHF -: Uterine cancer status post hysterectomy -: Chronic renal disease, stage IV -: TB as a child - Negative 2017 -: Hyperlipidemia -: Iron deficiency anemia -: WEST -: ESRD on HD -: Rectal surgery -: Hysterectomy -: Cholecystectomy -: Gastric surgery -: Appendectomy -: CABG x4 vessel -: RLE Femoral popliteal bypass -: Left great toe amputation Psychosocial/ Personal History: The patient is a . Her son lives with her. She has 3 children. - Family History Brother -: Heart disease, Hypertension, Cancer Notes: Father -: Heart disease, Lung disease, Cancer Notes: - Prostate surgery - Hemorrhage Mother -: GI disease Notes: Sister -: Heart disease Notes: - Respiratory failure - Social History Smoking Status: Current some day smoker Alcohol use: No CD- Drugs: No Caffeine use: Yes Review of Systems 10-point ROS is otherwise unremarkable General: Malaise, Other (Body aches) Cardiovascular: Chest Pain Gastrointestinal: Nausea Physical Examination - Physical Exam General: Alert, In no apparent distress HEENT: Atraumatic, PERRLA, Mucous membr. moist/pink Neck: Supple, 2+ carotid pulse no bruit, No LAD Respiratory: Clear to auscultation bilaterally, Normal air movement Cardiovascular: Regular rate/rhythm, Normal S1 S2 Gastrointestinal: Normal bowel sounds, No tenderness Musculoskeletal: No tenderness Integumentary: No rashes, Other (Compressive Pedro wrap dressings present to bilateral lower extremities) Neurological: Normal gait, Normal speech, Normal strength at 5/5 x4 extr, Normal tone, Normal affect Lymphatics: No axilla or inguinal lymphadenopathy - Studies Laboratory Data (last 24 hrs) 09/21/20 18:00: PT 14.4 H, INR 1.25 09/21/20 18:00: WBC 7.80, Hgb 12.0, Hct 36.6, Plt Count 212 09/21/20 18:00: Sodium 135 L, Potassium 4.9, BUN 14, Creatinine 2.84 H, Glucose 84, Magnesium 1.9, Total Bilirubin 0.4, AST 13 L, ALT 7 L, Alkaline Phosphatase 125 H, Lipase 133 Assessment and Plan - Plan Assessment Chest pain history of CAD status post CABG 2017 and multiple stents rule out ACS ESRD on HD TTS Diabetes mellitus type 2 Chronic venous hypertension with ulcerations to the lower extremities Chronic combined systolic/diastolic congestive heart failure Hyperlipidemia Iron-deficiency anemia WEST Plan Chest pain history of CAD status post CABG 2018 and multiple stents rule out ACS: Last cardiac catheterization 05/21/2020 with PCI of left circumflex. Initial troponin 0.05, will trend troponins, monitor on telemetry, cardiology consulted. Will continue home medications for CAD, DVT prophylaxis heparin 5000 units subcutaneous twice daily. ESRD on HD TTS: Patient missed dialysis today, potassium 4.9, nephrology consulted for assistance with hemodialysis. Diabetes mellitus type 2: A.c. HS Accu-Cheks scale insulin therapy. Chronic combined systolic/diastolic congestive heart failure: Last echocardiogram 02/28/2020 demonstrates 50% EF with pulmonary hypertension, cardiology consulted, will continue home medications. Chronic venous hypertension with ulcerations to the lower extremities: Patient currently seeing wound healing on a weekly basis, will have wound healing consult on case for additional assistance. No signs of significant action at this time. Hyperlipidemia: Continue home medications Iron-deficiency anemia: Stable, continue home medications WEST: Patient uses oxygen at night, will provide this. Discharge Plan: Home Plan to discharge in: 24 Hours - Advance Directives Does patient have a Living Will: Yes Does patient have a Durable POA for Healthcare: Yes - Code Status/Comfort Care Code Status Assessed: Yes (Full code) Critical Care: No Time Spent Managing Pts Care (In Minutes): 55
[2020-09-21] MEDS ORDERED: ONDANSETRON 4 MG/2 ML VIAL IV PRN (22:21)
[2020-09-21] MEDS ORDERED: GLUCAGON 1 MG/VIAL IM PRN (22:21)
[2020-09-21] MEDS ORDERED: HYDROCODONE/APAP 7.5/325 MG TAB PO PRN (22:21)
[2020-09-21] MEDS: INSULIN -REGULAR HUMAN 50 UNIT/0.5 ML ML SQ SCH (22:21)
[2020-09-21] MEDS ORDERED: D50W 25 GM/50 ML SYRINGE IV PRN (22:21)
[2020-09-21] MEDS ORDERED: DIPHENHYDRAMINE 25 MG TAB/CAP ONE (22:39)
[2020-09-21] MEDS: HEPARIN 5000 UNIT/ML 1 ML VIAL SQ SCH (23:42)
[2020-09-22] MEDS: DIPHENHYDRAMINE 50 MG/ML VIAL IV PRN ×3 (00:34→15:24)
[2020-09-22 03:09] LABS: Urine Appearance TURBID (Clear); Urine Bilirubin NEGATIVE (Negative); Urine Blood 2+ (Negative); Urine Color YELLOW (Yellow); Urine Glucose NEGATIVE (Negative); Urine Protein 2+ (Negative); Urine Specific Gravity 1.015 (1.005-1.030); Urine Urobilinogen 0.2 mg/dL (0.2-1.0); Urine pH 5.5 (5.0-7.0)
[2020-09-22] MEDS ORDERED: ALBUTEROL INHALER 60 PUFF/8 GM IH PRN (03:09)
[2020-09-22 03:30] LABS: Urine Microscopic Reflex ORDER UMIC
[2020-09-22 03:43] LABS: Urine Bacteria >50 /HPF (<20); Urine Mucus 2+ /HPF (NONE SEEN); Urine RBC TNTC /HPF (NONE SEEN)
[2020-09-22] MEDS ORDERED: ALBUTEROL INHALER 60 PUFF/8 GM IH ONE (03:54)
[2020-09-22] MEDS ORDERED: IPRATROPIUM BROM 0.5MG/2.5ML NEB PRN (04:19)
[2020-09-22] MEDS ORDERED: DICYCLOMINE HCL 10 MG CAP PO PRN (04:30)
[2020-09-22] MEDS ORDERED: HOME MED 1 EA UNK (Cholestyramine (With Sugar) [Cholestyramine Packet] 4 GM Powd.Pack) PO PRN (04:30)
[2020-09-22 05:55] LABS: Absolute Lymphocytes (CBC) 2.2 K/uL (0.7-4.9); Basophils % 1.1 % (0-1.3); Hematocrit 34.5 % (36.0-45.0); Lymphocytes % 31.1 % (15.3-44.8); RBC Red Blood Cell Count 4.05 M/uL (3.86-4.86)
[2020-09-22 06:05] LABS: Albumin 2.4 g/dL (3.4-5.0); Bilirubin Total 0.3 mg/dL (0.2-1.0); Potassium 4.4 mmol/L (3.5-5.1); Protein, Total 6.8 g/dL (6.4-8.2); Troponin I 0.04 ng/mL (0.0-0.045)
[2020-09-22] MEDS: INSULIN -REGULAR HUMAN 50 UNIT/0.5 ML ML SQ SCH ×4 (07:30→21:00)
[2020-09-22] MEDS ORDERED: LIPASE/PROTEASE/AMYLASE CAP PO SCH (08:00)
[2020-09-22] MEDS ORDERED: LACTOBACILLUS ACIDOPHILUS PO SCH (09:00)
[2020-09-22] MEDS ORDERED: lisinopriL 5 MG TAB PO SCH (09:00)
[2020-09-22] MEDS ORDERED: allopurinoL 100 MG TAB PO SCH (09:00)
[2020-09-22] MEDS ORDERED: SERTRALINE HCL 50 MG TAB PO SCH (09:00)
[2020-09-22] MEDS ORDERED: HYDRALAZINE HCL 25 MG TABLET PO SCH (09:00)
[2020-09-22] MEDS ORDERED: carvediloL 6.25 MG TAB PO SCH (09:00)
[2020-09-22] MEDS: FLUTICASONE 110 MCG/PUFF 12 GM INH IH SCH (09:00)
[2020-09-22] MEDS: FUROSEMIDE 40 MG TABLET PO SCH ×2 (09:40→21:00)
[2020-09-22] MEDS: SEVELAMER CARBONATE 800 MG TABLET PO SCH ×3 (09:40→16:17)
[2020-09-22] MEDS: GABAPENTIN 100 MG CAP PO SCH ×3 (09:41→21:00)
[2020-09-22] MEDS: HEPARIN 5000 UNIT/ML 1 ML VIAL SQ SCH ×2 (09:41→21:00)
[2020-09-22] MEDS: CLOPIDOGREL 75 MG TABLET PO SCH (09:41)
[2020-09-22] MEDS: ASPIRIN 81 MG CHEWABLE TABLET PO SCH (09:41)
--- NOTE | 2020-09-22 11:31 | P.CNS ---
Date of Consult: 09/22/20 Reason for Consult: ESRD Requesting Physician: Oleksandr Nettles Primary Care Provider: none Chief Complaint: Chest pain History of Present Illness: 65F w/ PMHx of ESRD on HD TTS, chronic systolic& diastolic CHF, CAD s/p CABG, COPD, Htn, HLD, WEST, & BLE chronic venous stasis ulcers, who p/w chest pain, admitted for further eval. she reported several hour history of chest pain as well as epigastric pain w/ the chest pain radiating to the neck left shoulder and left back area. She recently had a left heart catheterization 05/01/2009 1 with the left circumflex vessel. troponin was 0.05, the elevated at 72,000. She missed her HD yesterday. Allergies morphine Allergy (Severe, Verified 04/26/20 23:39) Anaphylaxis vancomycin Allergy (Intermediate, Verified 04/26/20 23:39) Shortness of breath basil Allergy (Verified 04/26/20 23:39) Nausea/Vomiting tramadol Allergy (Verified 04/26/20 23:39) Nausea/Vomiting trazodone Allergy (Verified 04/26/20 23:39) Nausea/Vomiting nitroglycerin Adverse Reaction (Mild, Verified 04/26/20 23:39) Nausea/Vomiting Home Medications: Allopurinol 100 mg PO BID 06/13/20 Aspirin 81 mg PO DAILY 06/13/20 Atorvastatin Calcium [Lipitor] 40 mg PO BEDTIME 06/13/20 Clopidogrel Bisulfate [Plavix*] 75 mg PO DAILY 06/13/20 Fluticasone [Flovent Hfa 110*] 2 puff IN DAILY 06/13/20 Hydralazine [Apresoline*] 25 mg PO TID 06/13/20 carvediloL [Carvedilol] 6.25 mg PO BID 06/13/20 lisinopriL [Prinivil*] 5 mg PO DAILY 06/13/20 Cholestyramine (with Sugar) [Cholestyramine Packet] 1 packet PO DAILY PRN 06/14/20 Furosemide [Lasix*] 2 tab PO BID 06/14/20 Gabapentin [Neurontin*] 200 mg PO TID 06/14/20 Sertraline HCl 25 mg PO DAILY 06/14/20 Ondansetron [Ondansetron Odt] 4 mg PO Q4HP PRN 07/11/20 Dicyclomine HCl 20 mg PO Q6HP PRN #30 07/19/20 Epoetin [Retacrit] 4,000 unit IV EVERY HD vial 07/19/20 Heparin [Heparin 1,000 units/mL *] 6,000 unit IV EVERY HD PRN vial 07/19/20 Hydrocodone 7.5/APAP 325 [[place] 7.5/325 mg*] 1 tab PO Q6H PRN #15 tab 07/19/20 Lactobacillus Acidophilus [Acidophilus] 1 each PO TID #90 capsule 07/19/20 Lipase/Protease/Amylase [Heather Turpin 12,000 Units Capsule] 3 cap PO TIDWM #270 cap 07/19/20 Medihoney [Medihoney Woundcare Gel*] 1 appl TOP TuThSa@0900 #1 tube 07/19/20 Sevelamer Carbonate [Renvela*] 800 mg PO TIDWM #90 tablet 07/19/20 metroNIDAZOLE [Flagyl*] 250 mg PO TID #42 tablet 07/19/20 - Past Medical/Surgical History Diabetic: Yes -: COPD -: Hypertension -: CAD, CABG x4 vessels (August 2017) -: Diabetes mellitus type 2, insulin-dependent -: Chronic combined systolic/diastolic CHF -: Uterine cancer status post hysterectomy -: Chronic renal disease, stage IV -: TB as a child - Negative 2017 -: Hyperlipidemia -: Iron deficiency anemia -: WEST -: ESRD on HD -: Rectal surgery -: Hysterectomy -: Cholecystectomy -: Gastric surgery -: Appendectomy -: CABG x4 vessel -: RLE Femoral popliteal bypass -: Left great toe amputation Psychosocial/ Personal History: The patient is a . Her son lives with her. She has 3 children. - Family History Brother Medical History: Heart disease, Hypertension, Cancer Notes: Father Medical History: Heart disease, Lung disease, Cancer Notes: - Prostate surgery - Hemorrhage Mother Medical History: GI disease Notes: Sister Medical History: Heart disease Notes: - Respiratory failure - Social History Smoking Status: Unknown if ever smoked Alcohol use: No CD- Drugs: No Caffeine use: Yes Place of Residence: Home Review of Systems General: Weakness ENT: Unremarkable Respiratory: Unremarkable Cardiovascular: Chest Pain Gastrointestinal: Abdominal Pain, Other (epigastric pain) Genitourinary: Unremarkable (denies flank pain) Musculoskeletal: Unremarkable (Generalized muscle weakness) Integumentary: Unremarkable (dry skin) Neurological: Weakness Lymphatics: Unremarkable Physical Examination Temp Pulse Resp BP Pulse Ox 97.2 F 77 16 178/94 H 99 09/22/20 08:00 09/22/20 09:40 09/22/20 08:00 09/22/20 09:40 09/22/20 08:00 General: Other (appears frail) HEENT: Atraumatic, Normocephalic Neck: Supple Respiratory: Diminished Cardiovascular: Edema Gastrointestinal: Soft and benign, Non-distended Musculoskeletal: No clubbing, No warmth Integumentary: Other (dry skin; normal temperature) Neurological: Normal speech, Normal tone Lymphatics: No axilla or inguinal lymphadenopathy Urinary: Other (no bladder distention) External genitalia: Deferred Rectal: Deferred Laboratory Data (last 24 hrs) 09/21/20 18:00: PT 14.4 H, INR 1.25 09/21/20 18:00: WBC 7.80, Hgb 12.0, Hct 36.6, Plt Count 212 09/21/20 18:00: Sodium 135 L, Potassium 4.9, BUN 14, Creatinine 2.84 H, Glucose 84, Magnesium 1.9, Total Bilirubin 0.4, AST 13 L, ALT 7 L, Alkaline Phosphatase 125 H, Lipase 133 Conclusions/Impression: # ESRD on HD TTS Received HD today HD again tomorrow per TTS sked Renal vitamin daily Renal diet Monitor renal panel # Chest Pain; CHF; CAD s/p CABG; Htn Appreciate Cardio input - cont med mngt; no further intervention at this time Continue current BP medication regimen # Epigastric pain Hx of gastric surgery; hx of recurrent diarrhea Previously on creon + questran Received flagyl 2 wk trial previously for ? SIBO Cont creon # Anemia Cont BRONWYN # Renal osteodystrophy Monitor calcium and phosphorus Cont renvela # Chronic BLE venous stasis ulcers Wound care
[2020-09-22] MEDS: ENSURE HIGH PROTEIN 237 ML CAN PO SCH ×2 (13:27→21:00)
[2020-09-22] MEDS ORDERED: D50W 25 GM/50 ML SYRINGE IV PRN (14:00)
[2020-09-22] MEDS: CODEINE 30MG/APAP 300MG TAB PO PRN (15:17)
--- NOTE | 2020-09-22 15:58 | EKG ---
Test Date: 2020-09-21 Test Time: 17:59:09 [place] Pumper: KRISTYN MEASUREMENT RESULTS: Intervals: Rate: 72 W[place]: 184 QRSD: 110 QT: 440 QTc: 481 [place]: P: 62 W[place]: 184 QRS: 97 T: 122 INTERPRETIVE STATEMENTS: Normal sinus rhythm Rightward axis Incomplete right bundle branch block Cannot rule out Anterior infarct, age undetermined Abnormal ECG Compared to ECG 07/10/2020 16:22:38 T-wave abnormality no longer present Possible ischemia no longer present Myocardial infarct finding still present Electronically Signed On 09-22-20 15:56:08 CDT by Taj Raymond
--- NOTE | 2020-09-22 17:10 | P.PN ---
Subjective Date of Service: 09/22/20 Primary Care Provider: none Chief Complaint: Chest pain Subjective: Improving (feels better, without chest pain this morning. continues with pain in legs/arms and asking for dilaudid) Review of Systems 10-point ROS is otherwise unremarkable Physical Examination - Vital Signs Temperature: 97.6 F Blood Pressure: 175/81 Pulse: 66 Respirations: 17 Pulse Ox (%): 99 - Studies Laboratory Data (last 24 hrs) 09/22/20 04:49: Sodium 135 L, Potassium 4.4, BUN 17, Creatinine 3.03 H, Glucose 116 H, Total Bilirubin 0.3, AST 11 L, ALT 7 L, Alkaline Phosphatase 128 H, Troponin I 0.04 09/22/20 04:49: WBC 6.90, Hgb 11.4 L, Hct 34.5 L, Plt Count 217 09/21/20 23:01: Troponin I 0.05 H 09/21/20 18:00: PT 14.4 H, INR 1.25 09/21/20 18:00: WBC 7.80, Hgb 12.0, Hct 36.6, Plt Count 212 09/21/20 18:00: Sodium 135 L, Potassium 4.9, BUN 14, Creatinine 2.84 H, Glucose 84, Magnesium 1.9, Total Bilirubin 0.4, AST 13 L, ALT 7 L, Alkaline Phosphatase 125 H, Lipase 133 Assessment & Plan Physician Review Additional Text: Physical Exam General: Alert, NAD HEENT: old ecchymosis and swelling of L face Respiratory: Clear to auscultation bilaterally, diminished at bases bilaterally Cardiovascular: Regular rate/rhythm, Normal S1 S2 Gastrointestinal: soft, nontender Musculoskeletal: tenderness of b/l lower extremites Integumentary: Compressive Pedro wrap dressings present to bilateral lower extremities) Neurological: normal speech / affect Problem List Chest pain history of CAD status post CABG 2018 and multiple stents rule out ACS ESRD on HD TTS Diabetes mellitus type 2 Chronic venous hypertension with ulcerations to the lower extremities Chronic combined systolic/diastolic congestive heart failure Hyperlipidemia Iron-deficiency anemia WEST -cardio consulted, no plans for further procedures /eval at this time, recommend medical management -nephrology consulted, for dialysis today, and will need dialysis tomorrow -continue home medications -tylenol #3 ordered for pain medication - tolerated in past. reports justina makes her itch -continue wound healing / wound healing consult -monitor closely Dispo: anticipate dc home in 24-48hrs Time Spent Managing Pts Care (In Minutes): 45
[2020-09-22] MEDS: EPOETIN 4,000 UNIT/ML VIAL IV SCH (17:45)
[2020-09-22] MEDS ORDERED: ATORVASTATIN 40 MG TAB PO SCH (21:00)
[2020-09-22 23:26] VITALS: BMI 26.4
[2020-09-23] MEDS: CODEINE 30MG/APAP 300MG TAB PO PRN ×2 (05:33→12:15)
[2020-09-23 06:17] LABS: Absolute Lymphocytes (CBC) 1.5 K/uL (0.7-4.9); Basophils % 1.1 % (0-1.3); Lymphocytes % 19.5 % (15.3-44.8); RBC Red Blood Cell Count 4.15 M/uL (3.86-4.86)
[2020-09-23 06:34] LABS: AST/SGOT 10 U/L (15-37); Albumin 2.4 g/dL (3.4-5.0); Alkaline Phosphatase 123 U/L (45-117); BUN Blood Urea Nitrogen 16 mg/dL (7-18); Bicarbonate 30 mmol/L (21-32); Bilirubin Total 0.4 mg/dL (0.2-1.0); Glucose Level 122 mg/dL (74-106); Magnesium 1.8 mg/dL (1.8-2.4); Phosphorus 3.1 mg/dL (2.5-4.9); Potassium 4.8 mmol/L (3.5-5.1); Protein, Total 6.8 g/dL (6.4-8.2); Sodium Level 135 mmol/L (136-145)
[2020-09-23 06:37] LABS: ALT/SGPT < 6 U/L (12-78)
[2020-09-23] MEDS: INSULIN -REGULAR HUMAN 50 UNIT/0.5 ML ML SQ SCH ×3 (07:30→16:19)
[2020-09-23] MEDS ORDERED: MEDIHONEY 44 ML TOPICAL TUBE TOP SCH (09:00)
[2020-09-23] MEDS: ENSURE HIGH PROTEIN 237 ML CAN PO SCH (09:00)
[2020-09-23] MEDS ORDERED: MULTIVITAMINS,THERAPEUT 1 TAB PO SCH (09:00)
[2020-09-23] MEDS: FLUTICASONE 110 MCG/PUFF 12 GM INH IH SCH (09:00)
[2020-09-23] MEDS: ASPIRIN 81 MG CHEWABLE TABLET PO SCH (09:53)
[2020-09-23] MEDS: CLOPIDOGREL 75 MG TABLET PO SCH (09:53)
[2020-09-23] MEDS: SEVELAMER CARBONATE 800 MG TABLET PO SCH ×3 (09:53→16:10)
[2020-09-23] MEDS: GABAPENTIN 100 MG CAP PO SCH ×2 (09:53→14:00)
[2020-09-23] MEDS: FUROSEMIDE 40 MG TABLET PO SCH (09:53)
[2020-09-23] MEDS: HEPARIN 5000 UNIT/ML 1 ML VIAL SQ SCH (09:58)
[2020-09-23 10:09] VITALS: O2SAT 96
[2020-09-23] MEDS: DIPHENHYDRAMINE 50 MG/ML VIAL IV PRN (12:15)
--- NOTE | 2020-09-23 12:47 | PN ---
Date of Progress Note: 09/23/2020 Subjective: The patient was admitted to the hospital on 09/21 with chest pain, epigastric pain, susp ect of . The patient has peripheral edema, chronic over volume and chronic venous stasis. Physical Examination: Vital Signs: Blood pressure 140/66, pulse of 67, afebrile CHEST: Faint rales at bilateral base. Heart: S1, S2. Regular. Systolic murmur. Abdomen: Soft and nontender. EXTREMITIES: Bilateral compression dressing. Neuro: Alert. No focality. Laboratory Data: WBC 7.5, H and H 11.5/36. Sodium 135, potassium 4.8, bicarb 30, BUN 16, creatinine 2.7, calcium of 8, phosphorus 3.1, magnesium 1.8. Current Medications: The patient on, it's include: 1.Aspirin. 2.Phenergan. 3.Plavix. 4.Epogen. 5.Atorvastatin. 6.Carvedilol. 7.Hydralazine 25 t.i.d. 8.Lisinopril. 9.Zoloft. 10.Lasix 40. 11.Renvela 1 with each meal. 12.Breathing treatment. 13.Codeine. 14.Allopurinol 100 b.i.d. Assessment And Plan: 1.End-stage renal disease, on dialysis. We will continue her dialysis. Her schedule, 3 times a wee k TTS. The patient is scheduled for dialysis today and we will follow up. 2.Hypertension. We will utilize blood pressure for more ultrafiltration. 3.Over volume with congestive heart failure exacerbation. We will challenge the patient. The patie nt is going to need extra treatment yesterday. We will do another session today and we will monitor. 4.Secondary hyperparathyroid. Continue binder. 5.Anemia of chronic kidney disease. Continue BRONWYN. 6.Congestive heart failure with exacerbation as above. 7.Chest pain as by Primary. NATI/CELESTINE Voice ID: [id number] Report ID: [id number]
--- NOTE | 2020-09-23 13:27 | P.DS ---
Admission Date: 09/21/20 Discharge Date: 09/23/20 Primary Care Provider: none Disposition: ROUTINE DISCHARGE Discharge Condition: FAIR Reason for Admission: Chest pain Consultations: Cardiology - Dr. Raymond Nephrology - Kassie Gordillo Procedures: CXR (09/21): Lungs are underinflated but similar to comparison. Left lung field is clear. Right pleural effusion with right base atelectasis present. This is similar to comparison. Dialysis catheter is in place. Sternotomy wires are in place. Upper right lung field is clear. Cardiomegaly is present similar to comparison. No pneumothorax. No acute bony abnormality seen. No acute aortic findings suspected. IMPRESSION: Moderate right pleural effusion with right base atelectasis similar to comparison. Cardiomegaly with no vascular engorgement or other findings of significant failure or volume overload Problem List Chest pain Volume overload secondary ESRD and acute on chronic combined CHF History of CAD status post CABG 2017 and multiple stents rule out ACS ESRD on HD TTS Diabetes mellitus type 2 Chronic venous hypertension with ulcerations to the lower extremities Chronic combined systolic/diastolic congestive heart failure Hyperlipidemia Iron-deficiency anemia WEST Brief History of Present Illness: 65-year-old female with history of ESRD on HD TTS, chronic diastolic congestive heart failure, CAD status post CABG, COPD, hypertension, chronic venous hypertension with ulcerations to the lower extremities presents emergency department for chest pain. Patient reports epigastric pain that started yesterday and chest pain that started today radiating to the neck, left shoulder, left back area described as pressure-like and intermittent in nature. Patient evaluated in the emergency department, EKG unremarkable chest x-ray demonstrates moderate right pleural effusion with right base atelectasis which is similar to comparison, labs significant for sodium 135 creatinine 2.84 GFR 17 troponin 0.05 BNP [id number], patient reports that she did not go to dialysis today as she was not feeling well. Patient reports some body aches over the course of the last couple of days. Patient had heart catheterization 05/01/2020 with balloon angioplasty to the left circumflex. Hospital Course: Troponin improved. Chest pain resolved. Cardiology recommended no further workup/procedures. Nephrology was consulted and patient underwent hemodialysis on 09/22 and 09/23. She was feeling back to baseline and discharged back home after 2nd run of dialysis. Vital Signs/Physical Exam: Physical Exam General: Alert, NAD HEENT: old ecchymosis and minimal swelling of L face Respiratory: Clear to auscultation bilaterally, diminished at bases bilaterally Cardiovascular: Regular rate/rhythm, Normal S1 S2 Gastrointestinal: soft, nontender Musculoskeletal: tenderness of b/l lower extremites Integumentary: Compressive Pedro wrap dressings present to bilateral lower extremities) Neurological: normal speech / affect Temp Pulse Resp BP Pulse Ox 97.5 F 67 20 140/66 96 09/23/20 08:00 09/23/20 09:53 09/23/20 08:00 09/23/20 09:53 09/23/20 08:00 Laboratory Data at Discharge: WBC 7.50 K/uL (4.3-10.9) 09/23/20 05:54 Hgb 11.5 g/dL (12.0-15.0) L 09/23/20 05:54 Hct 36.0 % (36.0-45.0) 09/23/20 05:54 Plt Count 226 K/uL (152-406) 09/23/20 05:54 PT 14.4 SECONDS (9.5-12.5) H 09/21/20 18:00 INR 1.25 09/21/20 18:00 Sodium 135 mmol/L (136-145) L 09/23/20 05:54 Potassium 4.8 mmol/L (3.5-5.1) 09/23/20 05:54 BUN 16 mg/dL (7-18) 09/23/20 05:54 Creatinine 2.74 mg/dL (0.55-1.3) H 09/23/20 05:54 Glucose 122 mg/dL (74-106) H 09/23/20 05:54 Phosphorus 3.1 mg/dL (2.5-4.9) 09/23/20 05:54 Magnesium 1.8 mg/dL (1.8-2.4) 09/23/20 05:54 Total Bilirubin 0.4 mg/dL (0.2-1.0) 09/23/20 05:54 AST 10 U/L (15-37) L 09/23/20 05:54 ALT < 6 U/L (12-78) L 09/23/20 05:54 Alkaline Phosphatase 123 U/L (45-117) H 09/23/20 05:54 Troponin I 0.04 ng/mL (0.0-0.045) 09/22/20 04:49 Lipase 133 U/L (73-393) 09/21/20 18:00 Home Medications: Allopurinol 100 mg PO BID 06/13/20 Aspirin 81 mg PO DAILY 06/13/20 Atorvastatin Calcium [Lipitor] 40 mg PO BEDTIME 06/13/20 Clopidogrel Bisulfate [Plavix*] 75 mg PO DAILY 06/13/20 Fluticasone [Flovent Hfa 110*] 2 puff IN DAILY 06/13/20 Hydralazine [Apresoline*] 25 mg PO TID 06/13/20 carvediloL [Carvedilol] 6.25 mg PO BID 06/13/20 lisinopriL [Prinivil*] 5 mg PO DAILY 06/13/20 Cholestyramine (with Sugar) [Cholestyramine Packet] 1 packet PO DAILY PRN 06/14/20 Furosemide [Lasix*] 2 tab PO BID 06/14/20 Gabapentin [Neurontin*] 200 mg PO TID 06/14/20 Sertraline HCl 25 mg PO DAILY 06/14/20 Dicyclomine HCl 20 mg PO Q6HP PRN #30 07/19/20 Epoetin [Retacrit] 4,000 unit IV EVERY HD vial 07/19/20 Lactobacillus Acidophilus [Acidophilus] 1 each PO TID #90 capsule 07/19/20 Lipase/Protease/Amylase [Heather Turpin 12,000 Units Capsule] 3 cap PO TIDWM #270 cap 07/19/20 Medihoney [Medihoney Woundcare Gel*] 1 appl TOP TuThSa@0900 #1 tube 07/19/20 Sevelamer Carbonate [Renvela*] 800 mg PO TIDWM #90 tablet 07/19/20 Codeine/APAP [Tylenol #3*] 1 tab PO Q6H PRN 3 Days #10 tab 09/23/20 New Medications: Codeine/APAP [Tylenol #3*] 1 tab PO Q6H PRN 3 Days #10 tab PRN Reason: Pain Scale 8-10 (Severe) Physician Discharge Instructions: You were found to be in congestive heart failure secondary to volume overload. You improved with dialysis. Your chest pain resolved. Your cardiac enzyme troponin was minimally elevated and came back down to normal. Cardiology was consulted and recommended no further workup/treatment at this time. Follow up as outpatient. Continue home medications as previously prescribed. Follow up with your PCP in 3-5 days. Continue dialsys as previously scheduled. Diet: Renal Activity: Fall precautions Followup: [email or web address] [Primary Care Provider] - Time spent managing pt's care (in minutes): 40
[2020-09-23] MEDS: EPOETIN 4,000 UNIT/ML VIAL IV SCH (13:45)
[2020-09-23 18:30] VITALS: BP 132/63; TEMP 97.6
--- NOTE | 2020-09-26 11:17 | CON ---
Date of Consultation: 09/22/[address] Nettles's service on 09/21/2020. History Of Present Illness: Chest pain and abdominal pain. History Of Present Illness: Ms. Priest is a 65-year-old woman. Has had a history of CABG, cardiac jennifer nt, congestive heart failure, COPD, diabetes. She is on dialysis, hypertension, dyslipidemia. She h as had CABG and stents, uterine cancer, ADD, and ADHD. Came in with atypical midepigastric chest henry n, some nausea. No vomiting. No diaphoresis. Denied PND, orthopnea, pedal edema, palpitations, or syncope. Denied fever or chills or cough. Past Medical History: As stated above. Medications: Include gabapentin, Plavix, aspirin, Coreg, Levemir, lisinopril, and sertraline. Allergies: INCLUDE AUGMENTIN, , CLINDAMYCIN, MORPHINE, NITROGLYCERIN, TRAMADOL, TRAZODONE, VANCOMYCIN, VICODIN. Physical Examination: Vital Signs: Stable. She was afebrile. HEENT: Negative. Neck: Supple without any bruit, lymphadenopathy, JVD, or thyromegaly. Chest: Clear to auscultation and percussion. Cardiac: Revealed a regular rhythm and rate. No murmurs, gallops, or rubs. Abdomen: Benign. Extremities: Revealed no clubbing, cyanosis, or edema. Diagnostic Data: Her chest x-ray showed moderate right pleural effusion. Her EKG showed old anterio r SD with normal sinus rhythm. Her creatinine was 2.84. Normal hemoglobin, normal white count. Her troponin was negative. Her BNP was 73,312. Procalcitonin was borderline high at 0.09. Impression And Plan: This is a patient with documented coronary artery disease, status post CABG, st atus post stent, negative troponin, elevated BNP secondary to renal failure. I think her symptoms ar e most likely gastric in origin. I would not change her medical therapy at this point and so I do no t embark on any more extensive cardiac workup. Her EKG showed old an anterior SD, which is chronic. She does have a right pleural effusion that is moderate that needs to be observed and maybe have a t horacentesis down the road if her symptoms persist. She is on the right medication. Cardiac hollingsworth, s he just need to follow up with us in the near future after she goes home. Her last stress test in [facility] of 2019 showed a fixed defect, no ischemia, with an ejection fraction of 33%. We will consider to repeat that as an outpatient both stress test and an echocardiogram if she shows up in clinic. He r other problems seem to be stable at this point. CHIDI Voice ID: [id number] Report ID: [id number]
== END 2020-09-23 17:39 | disposition home health service (06) | DRG 291 ==
LOC: ER 17:37 → ERHOLD 19:46 → 2ND 22:08 → OBSVTOIN 09-22 12:26
PROVIDERS: ADMIT Hospitalist; ATTEND Hospitalist
PROC: 5A1D70Z Performance of Urinary Filtration, Intermittent, Less than 6 Hours Per Day (ICD-10-PCS; principal; 2020-09-22)
PROC: 5A1D70Z Performance of Urinary Filtration, Intermittent, Less than 6 Hours Per Day (ICD-10-PCS; 2020-09-23)
DX: I13.2 Hypertensive heart and chronic kidney disease with heart failure and with stage 5 chronic kidney disease, or end stage renal disease (principal); I50.43 Acute on chronic combined systolic (congestive) and diastolic (congestive) heart failure; N18.6 End stage renal disease; L97.919 Non-pressure chronic ulcer of unspecified part of right lower leg with unspecified severity; L97.929 Non-pressure chronic ulcer of unspecified part of left lower leg with unspecified severity; N25.81 Secondary hyperparathyroidism of renal origin; J98.11 Atelectasis; I87.313 Chronic venous hypertension (idiopathic) with ulcer of bilateral lower extremity; R07.9 Chest pain, unspecified; E11.22 Type 2 diabetes mellitus with diabetic chronic kidney disease; I25.10 Atherosclerotic heart disease of native coronary artery without angina pectoris; D50.9 Iron deficiency anemia, unspecified; G47.33 Obstructive sleep apnea (adult) (pediatric); D63.1 Anemia in chronic kidney disease; J44.9 Chronic obstructive pulmonary disease, unspecified; Z99.2 Dependence on renal dialysis; Z85.42 Personal history of malignant neoplasm of other parts of uterus; Z89.412 Acquired absence of left great toe; Z95.5 Presence of coronary angioplasty implant and graft; Z20.822 Contact with and (suspected) exposure to COVID-19; Z95.1 Presence of aortocoronary bypass graft
CPT/HCPCS: 17250; 36415; 71045; 80048; 80053; 80076; 81003; 81015; 82947; 83690; 83735; 83880; 84100; 84145; 84484; 85025; 85610; 87077; 87086; 87088; 87186; 90935; 93005; 94640; 97116; 97162; 99215; 99285; G0378; J1200; J1644; Q5105; U0003

== ENCOUNTER 2020-10-05 18:05 | Observation (INO) | payer OTHER ==
--- OUTSIDE RECORDS SUMMARY | 2020-10-05 18:17 | XMS REPORT | Continuity of Care Document ---
:1955 Author Organization [facility] t Address [address] [place] [address] Care Team Providers Name Role Phone Landy [...] Date Expiration Date Sour ce Cassie ALMANZA [id number] [facility] MEDICAIDMEDICAID 00:00:00 - Marium [id number] Ce nter 2-Present Problems Condition Condition Condition [...] rosis of [address] [facility] Medical artery of artery of 00 [...] l mellitus mellitus 00 Center with with nurse anesthesia program director nurse anesthesia program director y y disorder, disorder, with with [...] hypertensi Me moria on on l [facility] Depression Depression Problem Active C [...] d COPD d COPD Clinics type type MCC MCC Problem Active [facility] current current [...] disease disease [facility] Allergies, Adverse Reactions, Alerts Allergy Allergy Status Severity Reaction(s) Onset Inactive Treating Comm ents Source Name Type Date Date Clinician Trazodon Drug Active Nausea And [facility] Allergy Vomiting 2-12 [facility]: [facility] [place] Morphine Propensi Active Anaphylaxis C HI St [...] in HCl Reaction [facility] Nitrogly Adverse Active vomiting [facility]in Reaction [facility] Morphine Adverse Active headache, [facility] Sulfate Reaction breathing [facility] Clindamy Adverse Active vomiting [facility] HCl Reaction [facility] Family History Family Member Diagnosis Comments Start Date Stop Date Source Natural father COPD [facility] Natural father Cancer [facility] Natural father Hypertension [facility] Natural mother No Known Problem [facility] Natural sister Asthma [facility] Natural sister COPD [facility] Social History Social Habit Start Date Stop Date Quantity Comments Source Sex Assigned At [facility] Cigarettes smoked 2019-12-31 2019-12-31 [facility] bernardino - current (pack per 00:00:00 00:00:00 [facility] day) - Reported Cigarette 2019-12-31 2019-12-31 [facility] - pack-years 00:00:00 00:00:00 [facility] Tobacco use and 2019-12-31 2019-12-31 Never used [facility] - exposure 00:00:00 00:00:00 [facility] Alcohol intake 2019-12-31 2019-12-31 Current [facility] - 00:00:00 00:00:00 non-drinker of Medical Ce nter alcohol (finding) History of tobacco 2017-05-12 [facility] sm[facility] use 00[facility]00 [facility] Smoking Status Start Date Stop Date Source Former smoker 2019-12-31 00:00:00 2019-12-31 00:00:00 [facility] Medications Ordered Filled Start Stop Current Ordering Indication Dosage Frequency Signature Comments Components Source Medication Medication Date Date Medication? Clinician (SIG) Name Name mupirocin 2019-03 Yes QD Apply [facility] (BACTROBAN) 0-03 topically Lay es - 2 % 10:49: daily. Medical ointment [address] [place] [address] collagenase 2019-03 Yes QD Apply [facility] (SANTYL) 0-03 topically [facility] - 250 units/g 10:49: daily. Medi marilin ointment [address] [place] [address] bumetanide 2019-03 Yes 2mg [id number] Take [address] (BUMEX) 2 0-03 [id number] by mouth 3 [facility] - MG tablet [...] MOUTH Memoria EVERYDAY l AT BEDTIME [facility] Isosorbide Isosorbide Yes Franki TAKE [...] - MOUTH Memoria EVERY DAY l [facility] Acetaminoph Acetaminoph Yes Franki (Schedule [facility] en-Codeine en-Codeine Jas III Drug) Shannon - #3 #3 TAKE 1 Memoria TABLET BY l MOUTH Outpati EVERY 6 ent HOURS Clinics NEEDED FOR PAIN Carvedilol Carvedilol Yes Franki TAKE [address] [facility] Jas TABLET BY [facility] TWICE A l DAY [facility] Advair Advair Yes Franki INHALE 1 [facility] Diskus Diskus Jas DOSE BY [facility] TWICE l DAILY. [facility] RINSE ent MOUTH Clinics AFTER USE Atorvastati Atorvastati Yes Franki TAKE [address] [facility] n Calcium n Calcium Jas TABLET BY [facility] EVERY DAY l [facility] Allopurinol Allopurinol Yes Franki TAKE [address] [facility] Jas TABLET BY [facility] TWICE A l DAY [facility] Gabapentin Gabapentin Yes Franki TAKE [address] [facility] Jas CAPSULE BY [facility] - [facility]TH Memoria THREE l TIMES A Outpati DAY ent Clinics Clopidogrel Clopidogrel Yes Franki TAKE [address] [facility] Bisulfate Bisulfate Jas TABLET BY [facility] EVERY DAY l [facility] Vitamin D Vitamin D Yes [...] Jas UNITS [facility] - [facility] SKIN IN l THE Outpati MORNING ent Clinics HydrALAZINE HydrALAZINE Yes Franki TAKE [address] [facility] HCl HCl Jas TABLET BY [facility] - [facility]TH Memoria THREE l TIMES A Outpati DAY ent Clinics Vital Signs Vital Name Observation Time Observation Value Comments Source Heart rate 2020-01-01 08:41:00 60 /min [facility] Respiratory rate 2020-01-01 08:41:00 18 /min [facility] Oxygen saturation in 2020-01-01 08:41:00 100 /min [facility] Arterial blood by Medical Ce nter Pulse oximetry Systolic blood 2020-01-01 08:32:00 162 mm[Hg] [facility] Diastolic blood 2020-01-01 08:32:00 73 mm[Hg] [facility] S [facility] Body temperature 2020-01-01 07:41:00 36.56 Deanne [facility] Body weight 2019-12-30 04:28:00 78.2 kg [facility] BMI 2019-12-30 04:28:00 27.00 kg/m2 [facility] Body height 2019-12-25 21:05:00 170.2 cm [facility] Procedures Procedure Date / Time Performed Performing Clinician [facility] REPORT OF PROCEDURE - 2020-01-05 08:40:02 Provider, Default [facility] ENDOSCOPY SCAN Scanning [facility] RHYTHM STRIP - SCAN 2020-01-05 08:31:43 Provider, Default [facility] Scanning [facility] RHYTHM STRIP - SCAN 2020-01-05 08:31:42 Provider, Default [facility] RHYTHM STRIP - SCAN 2020-01-05 08:31:40 Provider, Default [facility] CARDIAC CATH REPORT - 2020-01-05 08:31:15 Provider, Default [facility] CARDIAC CATH REPORT - 2020-01-05 08:31:13 Rocco Sepulveda [facility] POCT-GLUCOSE METER 2020-01-01 06:33:00 Cade Pat [facility] CBC W/PLT COUNT & AUTO 2020-01-01 05:37:00 Lily Echavarria [facility] COMPREHENSIVE METABOLIC 2020-01-01 05:37:00 DallasLily [facility] POCT-GLUCOSE METER 2019-12-31 20:50:00 Cade Pat [facility] POCT-GLUCOSE METER 2019-12-31 18:00:00 Cade [facility] POCT-GLUCOSE METER 2019-12-31 11:42:00 Cade Pat [facility] POCT-GLUCOSE METER 2019-12-31 06:29:00 Cade [facility] CBC W/PLT COUNT & AUTO 2019-12-31 06:05:00 DallasLily [facility] COMPREHENSIVE METABOLIC 2019-12-31 06:05:00 DallasLily [facility] MAGNESIUM 2019-12-31 06:05:00 [facility] POCT-GLUCOSE METER 2019-12-30 20:13:00 Cade Pat [facility] POCT-GLUCOSE METER 2019-12-30 16:26:00 Evens Mohamudruel [facility] SURGICALLY OBTAINED 2019-12-30 13:59:46 Cade Pat [facility] - CULTURE + GRAM STAIN Medical [facility] ANAEROBIC CULTURE 2019-12-30 13:59:46 Cade Pat [facility] SURGICALLY OBTAINED 2019-12-30 13:54:56 Cade Pat [facility] - CULTURE + GRAM STAIN Medical [facility] ter ANAEROBIC CULTURE 2019-12-30 13:54:56 [facility] TISSUE EXAM 2019-12-30 13:38:00 Tala Santacruz [facility] I&D,BONE FOOT 2019-12-30 13:11:00 Tala Santacruz [facility] POCT-GLUCOSE METER 2019-12-30 11:39:00 Pat Mohamudromerofarhad [facility] POCT-GLUCOSE METER 2019-12-30 05:39:00 [facility]OV[facility] ([facility] & 2019-12-30 05:11:[address] [facility] - REF LABS) [facility] CBC W/PLT COUNT & AUTO 2019-12-30 05:09:00 DallasLily [facility] METABOLIC 2019-12-30 05:09:00 DallasLily [facility] POCT-GLUCOSE METER 2019-12-29 21:09:00 [facility] POCT-GLUCOSE METER 2019-12-29 11:10:00 [facility] HEM[facility]YSIS INPATIENT 2019-12-29 08:12:17 Brandie Khan [facility] POCT-GLUCOSE METER 2019-12-29 06:10:00 Pat [facility]ud [facility] CBC W/PLT COUNT & AUTO 2019-12-29 05:50:00 DallasLily [facility] DIFFERENTIAL [facility] METABOLIC 2019-12-29 05:50:00 DallasLily [facility] POCT-GLUCOSE METER 2019-12-28 20:37:00 [facility] POCT-GLUCOSE METER 2019-12-28 17:38:00 [facility] POCT-GLUCOSE METER 2019-12-28 13:12:00 [facility] POCT-GLUCOSE METER 2019-12-28 05:43:00 [facility] CBC W/PLT COUNT & AUTO 2019-12-28 04:41:00 Lily Echavarria KATHRYN S t [facility] DIFFERENTIAL [facility] COMPREHENSIVE METABOLIC 2019-12-28 04:41:00 DallasChloeu [facility] ABD AO & LOWER EXT 2019-12-28 02:30:00 Sakina Tamayo [facility] - ANGIOS/ POSS PPI [facility] POCT-GLUCOSE METER 2019-12-27 20:32:00 Pat Mohamud [facility] MR LOWER EXTREMITY 2019-12-27 16:30:00 Jericho Lily [facility] - WITHOUT IV CONTRAST [facility] POCT-GLUCOSE METER 2019-12-27 14:06:00 [facility] WOUND CULTURE + GRAM 2019-12-27 12:02:00 Annia Delgado [facility] POCT-GLUCOSE METER 2019-12-27 06:44:00 Pat Mohamud [facility] POCT-GLUCOSE METER 2019-12-27 05:49:00 [facility] CBC W/PLT COUNT & AUTO 2019-12-27 05:05:00 JerichoLily KATHRYN [facility] COMPREHENSIVE METABOLIC 2019-12-27 05:05:00 Jericho Lily [facility] HEMODIALYSIS INPATIENT 2019-12-27 00:31:18 Brandie Khan [facility] POCT-GLUCOSE METER 2019-12-26 20:51:00 Pat Mohamud [facility] TRANSFUSION SERVICE 2019-12-26 18:02:44 Rocco Sepulveda [facility] REPORT - SCAN Scanning [facility] POCT-GLUCOSE METER 2019-12-26 16:42:00 [facility]/CTA AAA AND RUNOFF 2019-12-26 15:27:00 Sakina Tamayo [facility] POCT-GLUCOSE METER 2019-12-26 11:59:00 Pat Mohamud [facility] POCT-GLUCOSE METER 2019-12-26 06:09:00 Pat [facility]ud [facility] CBC W/PLT COUNT & AUTO 2019-12-26 04:36:00 Lliy Echavarria [facility] 2019-12-26 04:36:00 Lily Echavarria [facility] PREPARE LEUKO-REDUCED RBC 2019-12-25 23:54:00 Brandie Khan [facility] POCT-GLUCOSE METER 2019-12-25 20:51:00 Pat Mohamud [facility] TRANSFUSION SERVICE 2019-12-25 18:04:44 Rocco Sepulveda [facility] REPORT - SCAN Scanning [facility] POCT-GLUCOSE METER 2019-12-25 17:01:00 Pat Mohamud [facility] POCT-GLUCOSE METER 2019-12-25 11:25:00 Pat Mohamud [facility] CBC W/PLT COUNT & AUTO 2019-12-25 05:59:00 Lily Echavarria [facility] 2019-12-25 05:59:00 DallasLily [facility] POCT-GLUCOSE METER 2019-12-25 05:58:00 [facility] TRANSFUSE LEUKO-REDUCED 2019-12-24 19:06:17 Brandie Khan [facility] RED BLOOD CELLS [facility] POCT-GLUCOSE METER 2019-12-24 16:15:00 [facility] ABORH, MANUAL 2019-12-24 08:25:00 Jovita Griffith [facility] POCT-GLUCOSE METER 2019-12-24 06:11:00 Pat Mohamud [facility] TYPE AND SCREEN, 2019-12-24 06:08:00 Brandie [facility] - AUTOMATED [facility] CBC W/PLT COUNT & AUTO 2019-12-24 05:51:00 Lily Echavarria [facility] 2019-12-24 05:51:00 Lily Echavarria [facility] POCT-GLUCOSE METER 2019-12-23 21:23:00 Pat Mohamud [facility] POCT-GLUCOSE METER 2019-12-23 16:42:00 [facility] MR LOWER EXTREMITY JOINT 2019-12-23 15:34:[address] [facility] - ONLY WITHOUT IV CONTRAST [facility] [place] LEFT MR BRAIN WITHOUT IV 2019-12-23 15:34:00 Lily Echavarria [facility] L uk - CONTRAST [facility] POCT-GLUCOSE METER 2019-12-23 11:16:00 [facility] ARTERIAL DOPPLER LEGS 2019-12-23 09:38:00 Tala Santacurz Thy [facility] BILATERAL [facility] AMMONIA 2019-12-23 04:05:00 Mariela Carrasco [facility] CBC W/PLT COUNT & AUTO 2019-12-23 04:00:00 DallasLily [facility] COMPREHENSIVE METABOLIC 2019-12-23 04:00:00 DallasLily [facility] SARS-COV2/RT-PCR ([facility] & 2019-12-23 03:59:00 Pat Mohamud [facility] - REF [facility] POCT-GLUCOSE METER 2019-12-22 20:34:00 Pat Mohamud [facility] POCT-GLUCOSE METER 2019-12-22 16:43:00 Pat Mohamud [facility] POCT-GLUCOSE METER 2019-12-22 11:31:00 Pat Mohamud [facility] POCT-GLUCOSE METER 2019-12-22 06:30:00 [facility]ud [facility] CBC W/PLT COUNT & AUTO 2019-12-22 05:14:00 DallasLily [facility] S [facility] COMPREHENSIVE METABOLIC 2019-12-22 05:14:00 DallasLily [facility] POCT-GLUCOSE METER 2019-12-21 20:26:00 Cade [facility] POCT-GLUCOSE METER 2019-12-21 17:22:00 Cade [facility] POCT-GLUCOSE METER 2019-12-21 12:35:00 Cade [facility] POCT-GLUCOSE METER 2019-12-21 07:20:00 Cade [facility] POCT-GLUCOSE METER 2019-12-21 05:52:00 Cade [facility] C-REACTIVE PROTEIN 2019-12-21 04:39:00 Annia Delgado [facility] CBC W/PLT COUNT & AUTO 2019-12-21 04:39:00 [facility] COMPREHENSIVE METABOLIC 2019-12-21 04:39:00 [facility] US ABDOMEN COMPLETE 2019-12-20 21:17:00 Sakina Chen [facility] POCT-GLUCOSE METER 2019-12-20 20:23:00 Cade [facility] POCT-GLUCOSE METER 2019-12-20 17:31:00 [facility] CT BRAIN WITHOUT IV 2019-12-20 16:04:00 [facility] AM[facility] 2019-12-20 14:41:00 [facility] BLOOD GAS, ARTERIAL 2019-12-20 14:28:00 [facility] XR FOOT 2 VIEWS LEFT 2019-12-20 11:55:00 Annia Delgado [facility] POCT-GLUCOSE METER 2019-12-20 11:28:00 Cade [facility] POCT-GLUCOSE METER 2019-12-20 06:20:00 Cade [facility] OCCULT BLOOD, STOOL 2019-12-20 06:19:00 Benny Chenra [facility] PT/APTT 2019-12-20 05:06:00 [facility] Sakina Carrillo [facility] FIBRINOGEN 2019-12-20 05:06:00 [facility] D-DIMER 2019-12-20 05:06:00 [facility] IRON, TIBC, % SAT. 2019-12-20 05:06:00 [facility] (WITHOUT FERRITIN) [facility] r VITAMIN B12 AND FOLATE 2019-12-20 05:06:00 [facility] Sakina Carrillo [facility] RETICULOCYTE COUNT 2019-12-20 05:06:00 [facility] HAPTOGLOBIN 2019-12-20 05:06:00 [facility] TSH/FREE T4 IF INDICATED 2019-12-20 05:06:00 April Sakina Iqba l [facility] FERRITIN 2019-12-20 05:06:00 [facility] Sakina Carrillo [facility] ANTI-NUCLEAR ANTIBODY 2019-12-20 05:06:00 Sakina Chen C [facility] (ROGER) [facility] KAPPA / LAMBDA LIGHT 2019-12-20 05:06:[address] [facility] PROTEIN ELECTROPHORESIS, 2019-12-20 05:06:00 Sakina Chenba l [facility] PERIPHERAL BLOOD SMEAR - 2019-12-20 05:06:00 Sakina Chenba l [facility] PATHOLOGIST REVIEW [facility] r CBC W/PLT COUNT & AUTO 2019-12-20 05:06:00 Marcial Chapa [facility] COMPREHENSIVE METABOLIC 2019-12-20 05:06:00 Marcial Chapa [facility] T4, FREE 2019-12-20 05:06:00 April Sakinara Carrillo [facility] ROGER TITER AND PATTERN 2019-12-20 05:06:00 Sakina Chen [facility] POCT-GLUCOSE METER 2019-12-19 20:35:00 [facility]ade [facility] POCT-GLUCOSE METER 2019-12-19 16:06:00 Evens Mohamudruel [facility] HEMODIALYSIS INPATIENT 2019-12-19 16:02:09 Sharri Fernando [facility] CBC W/PLT COUNT & AUTO 2019-12-19 05:35:00 Marcial Chapa [facility] BASIC METABOLIC PANEL (7) 2019-12-19 05:35:00 Marcial Chapa [facility] LACTATE DEHYDROGENASE 2019-12-19 05:35:00 Sakina Chen [facility] (LDH) [facility] POCT-GLUCOSE METER 2019-12-19 05:24:00 Evens Mohamudruel [facility] POCT-GLUCOSE METER 2019-12-18 21:35:00 Cade Pat [facility] POCT-GLUCOSE METER 2019-12-18 16:05:00 Cade Pat [facility] POCT-GLUCOSE METER 2019-12-18 07:45:00 Cade [facility] POCT-GLUCOSE METER 2019-12-18 06:14:00 Evens Mohamudruel [facility] POCT-GLUCOSE METER 2019-12-17 21:44:00 Evens Mohamudruel [facility] POCT-GLUCOSE METER 2019-12-17 17:52:00 [facility]SE [facility] 2019-12-17 12:22:00 Cade [facility] HEMODIALYSIS INPATIENT 2019-12-17 10:33:08 Brandie Khan [facility] POCT-GLUCOSE METER 2019-12-17 06:18:00 Cade [facility] CBC W/PLT COUNT & AUTO 2019-12-17 04:14:00 Marcial Chapa [facility] COMPREHENSIVE METABOLIC 2019-12-17 04:13:00 Marcial Chapa [facility] PANEL [facility] POCT-GLUCOSE METER 2019-12-16 20:55:00 Pat Mohamud [facility] POCT-GLUCOSE METER 2019-12-16 18:24:00 [facility] HE[facility]IS B SURFACE 2019-12-16 16:02:[address] Aldulacey [facility] ANTIBODY [facility] HEPATITIS B SURFACE 2019-12-16 16:02:00 [facility] ANTIGEN [facility] HEPATITIS C ANTIBODY 2019-12-16 16:02:00 [facility] CORE 2019-12-16 16:02:00 [facility] es - ANTIBODY, TOTAL [facility] POCT-GLUCOSE METER 2019-12-16 14:47:00 Pat Mohamud [facility] IR TUNNELED DIALYSIS 2019-12-16 14:26:00 Sharri Fernando [facility] CATHETER [facility] HEMODIALYSIS INPATIENT 2019-12-16 12:37:39 Bill [facility] POCT-GLUCOSE METER 2019-12-16 11:01:00 [facility] XR CHEST 1 VIEW 2019-12-16 05:55:00 Marcial Chapa [facility] PORTABLE/BEDSIDE [facility] POCT-GLUCOSE METER 2019-12-16 05:51:00 Pat Mohamud [facility] CBC W/PLT COUNT & AUTO 2019-12-16 04:08:00 Marcial Chapa [facility] BASIC METABOLIC PANEL (7) 2019-12-16 04:08:00 Marcial Chapa [facility] PROTHROMBIN TIME/INR 2019-12-16 04:08:00 Marcial Chapa [facility] SARS-COV2/RT-PCR ([facility] & 2019-12-16 01:45:[address] [facility] Plan of Care Planned Activity Planned Date Details Comments Source Future Scheduled 2020-12-[address] [facility] - Test 00:00:00 examination [facility] (regime/therapy) [code = 332752395] Future Scheduled 2020-12-[address] [facility] - Test 00:00:00 [facility] [place] [facility] (procedure) [code = 722827216] Future Scheduled 2020-11-[address] [facility] - Test 00:00:00 (Season Ended) [code = Medic md Center INFLUENZA VACCINE (Season Ended)] Future Scheduled 2020-03-[address] [facility] - Test 00:00:00 (12+) [code = Medical Center DEPRESSION SCREENING (12+)] Future Scheduled 2020 PNEUMOCOCCAL 65+ YRS [facility] - Test 00:00:00 (1 of 1 - Medical Center [id number]) [code = PNEUMOCOCCAL 65+ YRS (1 of 1 - [id number] PCV13)] Future Scheduled 2017-11-[address] Janna kes - Test 00:00:00 measurement [facility] (procedure) [code = 62626515] Future Scheduled 2005 SHINGLES VACCINES ([address] [facility] - Test 00:00:00 of 2) [code = SHINGLES [facility] VACCINES (1 of 2)] Future Scheduled [address] [facility] - Test 00:00:00 (procedure) [code = Medical Center 38175219] Future Scheduled [address] - Test 00:00:00 [facility] cervix (procedure) [code = 644175808] Future Scheduled 1974 DTAP/TDAP/TD VACCINES CH I [...] 00:00:00 protein (procedure) Medical Center [code = 237051748] Future Scheduled [address] [facility] - Test 00:00:00 malignant neoplasm of [facility] breast (procedure) [code = 245855630] Encounters Start End Encounter Admission Attending Care Care Encounter Source Date/Time Date/Time Type Type Clinicians Facility Department ID 2020-03-28 2020-03-29 Emergency Chato Fine [facility] [id number] 15:50:00 20:31:00 Maureen Terrazas [id number] [place] [id number] [place] [id number] 2018-11-17 2018-11-17 [facility] [id number] 11:30:00 11:30:00 [facility] 2018-10-06 2018-10-06 [facility] [id number] 16:14:00 16:14:00 [facility] 2018-09-28 2018-09-28 [facility] [id number] 10:30:00 10:30:00 [facility] Results Test Description Test Time Test Comments Results Result Comments Source ANAEROBIC CULTURE 2020-01-04 10:26:00 Test Item Value Reference Range Interpretation Comme nts CULTURE (BEAKER) (test code = 1095) No anaerobes isolated Tissue [id number] 10:21:00 Test Item Value Reference Range Interpretation Comments Case Report (test code Surgical Pathology = 104) Report Case: [id number] Authorizing Provider: Tala Santacruz DPM Collected: 12/30/2019 01:38 PM Ordering Location: [address] Med/Surg Received: 12/31/2019 06:52 AM Pathologist: Jovita Griffith MD Specimens: A) - Soft Tissue, Other, left 5th proximal phalanx B) - Metatarsal, Left, left 5th metatarsal DIAGNOSIS (test code = [id number] 3220) FuZzEwMzNcZnRuYmpcdWMx UOnqpfKcGMwoh2HyF4ZmFg AwMFxhbnNpXGRlZmxhbmcx GYGuWLK6joRmSDTzVLykPD BlLSddSb1aoXRtiHfiJzXp AXGqc6obmdOKenpoeBl7k5 cbQWJjDeO5yTNvOAkqO4pm lcDrpSFxRHVtISs2jQ44HY NqvR2vyLSjDBzkfjHyNqB7 ZOmrWOLpKdR1BUTudOUrVN XcK0jfKZIeXGcdMVTzBPue zJJbZPF0eJrnp5X9xEQwxE ZywHxjLpPnNdGaIXWEh9Ja GQy3mWtiG1VnTWQiHjK6bH QgUGFyYWdyYXBoIEZvbnQ7 tB09GFqkzpB0xMTjk1Mhq4 4ed469hN8dpJIpUBA6KVIn DITelAQzEDRjELR2EOCstA EdX9f6VvKinHJbA6R0BeSq pQBiA1M1ZtJmgBBjP5I0Lf IboSKzGCWumVDxKj0bfROr iJUssn5msn54DLV8q0NlzU bcFFH6YSV1NiRyFa3jkAQp ZCWaFK9iRmOmaELjIJQbna 84qMkkKGmsikPkhY8cJrNa YXWjwWQdOTPxJW1etZRnCS JmjS5zybioQPRxTnJfpmzr XCQtzMqtniCoFb1vgAciPQ Y5XNmzL4juvL5rFgJ7DPyt G5vovL4qETx1ZMbnmVF4TV YppB5sFB3proifo0ktGzBc XC3toakvh2keXdFoVB8abv q7k4mjEgSjGZ3vuzloz5im NzIwXGhlYWRlcnkwXGZvb3 AslrryFQZhp8YuZ8RcoMyy O79kkOueL09hCXErwHtrmP 5hkNdzlX4cPlGbDyRjSBdy bFxwbGFpblxmMVxmczIwXG dpfiplOOGbBVbpE8ftImGm MDOzaYorOWawg5TjFHKtCE FzQuHiDW6cNk9DLAwnYCSK SQFKDQOZEYVMPe2YNC0LCG MAROPMMQ8IPRNYYD6UE8l7 ISAzyaZeVNViQNLUNZ6vY3 sOGRUCLxRUPawFMM7WREMC UlRJTEFHRSBXSVRIIFNVUl AARB0OEH3GDRPOCFZCHCVD RCBDSFJPTklDIElORkxBTU 1BVElPTlxwYXJccGFyIEIu IEJPTkUsIExFRlQgRklGVE ggTUVUQVRBUlNBTCwgQklP UFNZOlxwYXIgICAgLSBBQ1 UNSWJVL2PKL00UHBpZXWsM IFxwYXIgICAgLSBTRVBBUk CMUURAWxHGTWNUCANuB9Bu GcuHAi9GR59MKUQIFKHUFR PHR2FSZQKSBMLFMHHOS4OE L4QmSW3UZ2SOR3kCNGCKCQ BHUkFOVUxBVElPTiBUSVNT QGEyFh0HMRYJMS9JSLZvhv 90LAQ2BsPci6U0HMG2MYKe SONic3mmAIOgmSXuEmFoZh NcZnRuYmpcdWMxXGRlZmYw x4iqs570pAIti4hgUVPhCx I0dNMdNQTuyJQiH470BOIh GIyxs9emc6NrNLQfiLJlk8 O8NHJGiaryhYk4kYpiA36z t6F1LqycG6rzMLFzOIRvS3 EgVD3hTWWhZzg4WTX3GRA8 OEFcMGIqZ9LxJA0fTDMzrD TkXVl4o8ntpOtlARYlRGW3 c3cuDZzvjtJyLX5tij6stN v8h4xmjpJjKLCaNLAldZXB SALoH6NjrXjuWv4tkSx9vX fsJgqsLAN5Ihk7WS3tli81 jki5dIjdSRAvsybeVfC5IM wqYTEheomlFMj6DFvwSUHz eBJ1PQBqvGAnH1GeJIXzWY 5zzap6JTH8XMvwPPNoTkK4 NDBcaGVhZGVyeTcyMFxmb2 36WOZ7ChTdUI6gT2Ssu2T5 lX4sgSRyAQMpiRQgLeWgNS Novk0mtXYyWZprw9FfYPY2 uzJ4bWQlaOIrBMPoBmR0NS axYM9nmg72KSNlYOV0yc9h bGNccGdicmRyaGVhZFxwZ2 QwGXNbq411PRWyD8NvBNBe k9W5zqIgWiIzJEOnqOS0zi C2MFZfSF7nmdwdk6rwERqe HGwzKXZsozD5afO7PCGmzE ZkT5EedH6sNBQrMW8xfjyg r0jiHUP7JHxvLKIaEMJ7Jc EqPNEev3Dahsr2CqVgt4Cb hIPzBZpfC38yq138QDCbiu IyJ6vzzOHwpgltbIAhslmh BPvedjK8KIAaEXbhuodjWJ SgVEyfT9qnWoTrUOPqcQxd MQfnr5VwCPZuWRTwBeQqbN KzRALaNga6BWMqhVEvQMMq HfQbF4hnavxhZbUHLBFdg5 zfL3iyoOFDgSEeJ9FrIVdr cuMoLHhxVRnyFCA2FMH9Fb 22NeO8GRPtxv98 CPT Code(s) (test code j7ahhUXxMKBrcPAmMbGiLX = 3357) ObFDJst9qqXPJhaOBwWgQa MzNcZnRuYmpcdWMxXGRlZm Wpo3amr112vRMmp4zcRXOi DeR7qMHcWILmqGLdU505o5 ovr6rncwYsgLR6YHCpYKP7 GZxuywGdytA3QFjkyQXcCr V6WZqcaeAuBTsviqFiqkUo Ltt5KSQbS463DLS6yKzto9 ooSFD7UZTjWQShDnZaXm8a wANfQ291BNSiXUQSIFJwyA q0LUPgaaBwcyGqdKVWl803 O634i8xtJTYsvlTdzXhQkn cqs3oeT766XPOwyUWlggWk EkDzDLZmaGZvpOJ9IDDsIT 3igzveNcQpOW1aoukhYjOh HT6inkc3VsPdDC6ycgfvBv XwLUmuMLAnptqbHAEmf9Uf qkyqCD7zL7Wir8F8eM3gbO EcPUFyuQAjBcVlWZPrdr1q oSYjUUlyh1OfYOZ3yqV8qX YhiKQaGMDpRH04Wvyox8Hv FqwwNOO6VPWdaaKcz8Efv3 lgDiIpkyUyJ9sdT6YlSDQn YMVgNEFuMiPnijTip2Qcb4 MdrEUnzJr9k7bkZVXaKVEu hNico6tuERO7LXGsQ3X1vW Eyv9mbPRjoMWDerNL2qhlg XTsxZSJjtxY1gxsqTAvdKE CksOG5vmsdBNhlFVBdVrS4 itmpQNfoPCWbKBC7LVtle5 93XJG8IJnlPzqnLVkpBMFt bmNvbnRccGduZGVjXHBsYW luXHBsYWluXGYwXGZzMjRc sNbjlEmyaR5aMuCnXrAoNI kvUI3xVPZkY7gbgWFaCEIq ANUdI2pmUeNbqD9joMfqVP mhtaJnPU6LR2Y1NMXajjU6 KNNaZxM5ThquVDVtYBhtSE EgeDJccGFyfQ== CLINICAL HISTORY (test v1adqEGeEHExhARtOeBfEI code = 3356) GhXILqd6qgDRLhjAYuBhVy MzNcZnRuYmpcdWMxXGRlZm Xws6cse264vAArq8hoHLVv OgJ8gLSdWEXjlUGoL126w8 omf5hhavBkoBO4ZIOsXKL4 JZeupfMqyeD7GIuxuHCxOk J6FShgddSuMWkfbhFkxkHo Vut4YYVeG287WXZ4lFcfw9 foULY3VKSqWBRzVzQfJq7t cZDrX030CYPyNEETJBYbiB t4HYYnpgHyggAjiNYKr463 L550u0wzJKSfvnQkzKlXms shr6byG154ZJWxxJUjcbOs OjHgZILdyDUffLA7NBNvIW 1fyzkwDkCoWL8flfmqLqRj GF8cxbc1NpIhID6ylrvxBe RaEYweUQVaysuvPBPfn4Lm quvpLB2kP4Sdb6V7xQ2ncE OdODZcqHEyJuNvQQEzhj7n mSWxLOkos7PlTSM3hrO2aU HfrKFyFALzFA49Fzgqh9Ao KveiUKU5EUMvugHbj9Jop5 qgDqOpfjAyU2ezQ7IyJJId WSFbTTPiQuYralHec2Bjb0 GeyNTsrAv5g1vwGZFvWWEb qMzcw0kdNLB2RLJpX5W7iG Mmw9xhHCluXTQkmKV0nplj DYehQLQianI2lupjCJruPM UopJK9yzssPEhbBFVrGsL6 xudrUVejFSYqYZG1DBsue9 57CCB2PXuqGmtrVTobQJZp bmNvbnRccGduZGVjXHBsYW luXHBsYWluXGYwXGZzMjRc yBrarJyywU4nKsZgSxQyUP dhIN0aOVGvV8bbmERbMAUb ELWvO6liYhGcuD7ywEozEE apchXpLU6vlMHldPxplXw3 sHRtf9LspCDweXK4oQgtzF M6NICzjxFpfFrlhHysOYSz x0XcXcspLQTushXpZDOfYU RccGFyfQ== SPECIMEN SOURCE (test d7nqmPVpAWHilXWnPwCnNG code = 3377) DiGRDoh1vrANFrrECrHxOh MzNcZnRuYmpcdWMxXGRlZm Kgl6yak564sDJii0qbNGWf NfZ6mZQcBXCgqEWeQ881y5 kme8bzhsMeaFR1MLPxZAI5 WSpcmqGbelU0GCuplRShUh A0FJknxyUxKNjaivAozlIy Phe2VKDmF532DSC9xAuxh9 ukRIN6YIEkOWYoVsFsWy6l aHYaK561TOYnWFYGHXOccN c7LVCssjRfslShnVXXw686 R936o2yzLSWfpcWcyHfHno nrs4woC214VIAcyIZuxjBx IwCzUFTjhGTxkRI2YCUyOP 2cgqfwOxViRZ0imhmhMvEa JZ9lbis2JsPiBE1qiujhJy LxXIoeKOYbnlduTZUvd0Ep ijczEE5lW3Jmi0X0yW6tjS XgDVJxjAXlNnOvGVZlmj3z qWYmCSbmx5ZeEGV3frH3fN EkqPIwGZNmEX88Gpxxy7Vj BfysSJB6EWKnztLjp0Ivi6 exVmOjwpIbI3ijH7SpIAEc CBSoWGDiHaLbmrGph4Wsm8 ZavMDbsYi4s1leCWDuLHXl wEalg6zyYPW9JPQnN4W2vU Qjd3rsFFnvVGSnyPV3qsfr AVkjEZPxnyV5hfxbBYaiDH XvlRJ2yraeLRbwANVnKaI0 bsbbIAneHIUiRUF3CPuar6 95DOM1OGtuPgqfIWqvUCCc bmNvbnRccGduZGVjXHBsYW luXHBsYWluXGYwXGZzMjRc mZxszIpqrR5xKkOgCqCsIE wcMX5fMUTmF9duxHPnEXIk LZUfA2axTzCmuI1buCxbAW xmczIwIEEuIExlZnQgNXRo ARPjw4staGAtROWqMIowcc whNFQtHDgvGdAcFUThRL2g nXD5SNLlDMjcUFYjsf5= GROSS DESCRIPTION (test h4pxqPPtJHLmpTRrYoTnCA code = 3366) VhOLEpg6deDWHmjGQlSwQf MzNcZnRuYmpcdWMxXGRlZm Zwz1hly240gQUpx0psXCDb RfE0sHIcHZWyjCLkX835AH BbLKnzq6gnj9HzQCBegVAx n1U0RUSIbvfviSp0jFrqJ5 8ma4I8UfuwE3oaZQUrZHPf C0MkMH1rXPMuMys1VBW4PP U0WGDeQVScH6UxHG2hTOSk jQXpDZg1o1hohYwjITDjNH V2h8vlZXeehcWkDQ6fcy8a qWk9h4raciZxFOVeFOKurW XOHVMeF4ByiOvgKu4voAd6 eUouAqpvYPL8Afa3VA2xpw 56fbu8wZznYJAwcfirNtB8 NAceQJIwbgjmDNe0BZhvAZ JnbDcyMFxtYXJncjcyMFxt YXJndDcyMFxtYXJnYjcyMF juWPIgGKV2AYmph562LHU6 LUhap6kop5eqhONuRpz5RV TzEnTvNhkmCErsw5Ayr4xg PYAplp7lFPY3nRAxrSqnn1 Q3iVUnKTRxgXGfnjRhMEBj PdA0ZWhmFJ7mrt98XRRiZX Q2cw1rrCGsbCbsojFpcNFg NIkcE5GuDZVro578DQYfM4 DbMVKpw9L9quTgBhFiMVTt hHF8wvM7UZIvMWz2iIIzzu A2kbOcoYTcJ3otyJ95QpDj yYDoN4FecI88EaDxvQMmX3 PonT61CxPlgUIpN4ClbM13 UzAtuSIyNHCyuAEaMd9enU JbpCPxm3UatCEzCCweW79b o299GRJueoTtG4fvsNSrao vshRXhcmilEYkhjiO1JRUq XHBsYWluXGYwXGZzMjBcbG FuZzEwMzNcaGljaFxmMFxk BkOoEWZmBDdnA9veYsUqCx QvKQXNwBApiO9fudAERHxe JGPxO2DqnoMxQEanRMMdaU M9kDWuXVkzSbPuNPVbq0o7 iRQ7wCFcmXQ1gTYakKcnXS 5dlSZsCH1lOJ0rGGvcJAtt kzNed2DwME04dVIijpItcz QgZGVzaWduYXRlZCBhcyAi a62pkEJ3iAHroIWuHW65gR CcObwsC99rc0lvrZRbi6Zp a2iwwBNbqMSkgK39MOYudk LkGnFdX30sisRbEF6zEIR8 cmluZyAwLjcgeCAwLjMgeC XwMfQqR62hKYEwWGEfpEHv hO2zlyQwpzWxeAPsjIM9SM DfRS33yBXniNfwuW65hoOA YQUuhfJsjE69rjCmSXKgmM Icd1k9lOhrjx7jzMWsRWFo pbSGlBXlpY5sudSBIYoiDY CzU2AbggIuHUdbAACmhVC1 jTLuELvwOgXhRCTzx3i7fL E5uDQwjDW2gPPpyAwzED0q eNSmAO9ySA4lEWbzZUvvcv Krk6MjAW90lXTjgyWrzkAe ZGVzaWduYXRlZCBhcyAibW R2GFTueiTidHSlOFL1Eker J30qr7sqsSLju0GqRt38kx ZuBVEhGoTow09qhFgmk0Hd ZSRlJEIzl37gBQZlWZchFG 57cnWuQLOesDTicfmxAv3y GSwgUS08XNbqUX10QGAxBY aqKGJxC3XfJ3N6PU9aaToa IHNwZWNpbWVuIGlzIGVudG pnPUp4UYjbnHEkuztrHPjl czIwXGxhbmcxMDMzXGhpY2 mmPiDjOQXqdNzeZOwpt7Ec PQVqSKToTrEfYrPjIH9kPN avwE5uMSDmYRise51alKXa i16fZWAgZEsaGIHpCZLjDj BcbGFuZzEwMzNcaGljaFxm SJjvXaJrTUYqTCggL7ruAg BcZnMyMCAgTUcvZXdccGFy fQ== MICROSCOPIC DESCRIPTION n5sdrQAsJPBoxSBlVaFdRO (test code = 3371) OzUPDiu9ygLPKtbEOjFhHj MzNcZnRuYmpcdWMxXGRlZm Icy2xcg264hUJzz9ifLMGv NvB1aGJoNKKtbQMgF234c3 kpb6gdpiZqxZQ3LTJsJKJ9 YXmcbeRbdbS4FUutaLXmOg X8CWuqoxVyFMvtsoRgkwRe Dmd8PMYsR971TXH3cRqnj4 peJTW3KHHaUSLyYfOpCh7z rNQsC846JGHvYMNMPVGpeZ h0YMCbgzKdloTakLGPm066 D450v9mrWMVtwwMeeXdZyd ogj8lxT237NGOomCWklvZs ZwUjSHTcbBEbqSN4HCSnCU 9xqpyxHjWaBX9jlqdcUfQy YZ4rizq4WiRjCP4txkjsFv YlVBapEFPuqrnyXEZxt0Tn zxoaVF0fC7Vgy0R3qV9rxK FcSNKjvEGaYhZqTFWtcj1h fZVoTSjqu9XpDRQ7yaZ8oD JamBBxTIPcET65Bsbmu1Cy FjfiHPI7HUItglFvx8Iqn2 yzDzIkiqAwK2agG6KwWNMe UGSzIRFtRnMcxpHcq9Nhb5 TaeGHwmIx1u1bxNFXnWDEe mPauz0uqJFY2SHWcE1D7mP Dhi2fyQAhxYKQnfVG8ecjb EIdbAFRnusL5mgqxPDtiXN UmoNH0isjdYXraNHAuYjV3 ownxTLdbHSHlFNT3YBznu1 11IZT3UVhkOzalNOhoPHQy bmNvbnRccGduZGVjXHBsYW luXHBsYWluXGYwXGZzMjRc yNrstXgjdA5hJsViFsZyGJ ugME3jQHXmA6zizTAwRTPv OGEgX3flYqTvyI9miAuaTP koqzKmELBaOi4dPGFnNq6w bWVkLlxwYXJ9 Gross assessment was [facility] performed at (test [facility], Department = 2777) of Pathology, [address] [place] [address], Technical component was [facility] performed at ([facility], = 2778) Department of Pathology, [address] [place] [address], Professional component [facility] was performed at ([facility], Department code = 2779) of Pathology, [address] [place] [address], [facility] [id number] 10:21:00Surgical Pathology Report Case: [id number] Authorizing Provider: Tala Santacruz DPM Collected: 12/30/2019 01:38 PM Ordering Location: [address] Med/Surg Received: 12/31/2019 06:52 AM Pathologist: [...] TISSUE FORMATION Signing Pathologist Direct Phone Line: [phone] signed by Jovita Griffith MD on 01/04/2020 at 10:21 AM/[id number] [id number] of left 5th metatarsal, ulcer of bilateral [...] and into decal solution. MG/Veronica-B. Performed.[facility], Department of Pathology, [address] [place] [address], C[facility]n [facility], Department of Pathology, [address] [place] [address], [facility], Department of Pathology, [address] [place] [address], GEEITLMEJ [id number] 10:47:00 Test Item Value Reference Interpretation Comments [...] negative Staphylococcus SURGICALLY OBTAINED CULTURE + GRAM [id number] 08:31:00 Test Item Value Reference Range Interpretation Comments CULTURE (BEAKER) (test code No growth = 1095) GRAM STAIN RESULT (BEAKER) <1+ WBCs (test code = 1123) GRAM STAIN RESULT (BEAKER) No organisms seen (test code = 84217) SURGICALLY OBTAINED CULTURE + GRAM [id number] 08:19:00 Test Item Value Reference Interpretation Comments Range CULTURE (BEAKER) STENOTROPHOMONAS A 2+ Sten otrophomonas (test code = 1095) MALTOPHILIA maltophil ia Levofloxacin (test S code = 22) Trimethoprim + S Sulfamethoxazole (test code = 47) GRAM STAIN RESULT <1+ WBCs (BEAKER) (test code = 1123) GRAM STAIN RESULT No organisms seen (BEAKER) (test code = 496348) POC-Glucose [id number] 06:47:00 Test Item Value Reference Range Interpretation Comments POC-Glucose Meter (test 102 mg/dL 70-110 : TE STED AT [facility] code = 1538) [address], [facility] [address]: Patrol Officer/Techni artemio ID = [id number] for Anne Salgado Lab Interpretation (test Normal code = 77079-0) [facility] [id number] 06:47:00 Test Item Value Reference Range Interpretation Comments POC-GLUCOSE METER 102 mg/dL 70-110 : TESTED A T [facility] [address] (BEAKER) (test code [address], = 1538) [facility] [address]: Patrol Officer/Techni artemio ID = [id number] for Anne Busby Comprehensive metabolic [id number] 06:34:00 Test Item Value Reference Range Interpretation Comments Protein, Total (test 6.1 See_Comment [Autom ated code = 2885-2) message] The system which generated this result transmit merna reference range : 6.0 - 8.5 gm/dL . The reference range was not u sed to interpret th is result as normal/abnormal . Albumin (test code = 2.3 g/dL 3.5-5 L 19423-7) Alkaline Phosphatase 81 U/L 30-115 (test code = 6768-6) Total Bilirubin (test 0.4 mg/dL 0.1-1.2 code = 1975-2) Sodium (test code = 137 meq/L 709-957 4197-2) Potassium (test code 3.7 meq/L 3.6-5.5 = 2823-3) Chloride (test code = 100 meq/L 98-106 2075-0) CO2 (test code = 28 meq/L 20-29 8-9) BUN (test code = 14 mg/dL 10-26 3094-0) Creatinine (test code 2.31 mg/dL 0.5-1.2 H = 2160-0) Glucose (test code = 100 mg/dL 70-110 2345-7) Calcium (test code = 7.5 mg/dL 8.5-10.5 L 29004-5) AST (test code = 15 U/L 5-40 1920-8) ALT (test code = 6 U/L 5-50 1742-6) EGFR (test code = 21 mL/min/1[place]73 [place] [address]-9) NOT ACCURATE CREATININE CLEARANCE IN PREDICTING GLOMERULAR FILTRATION RATE . ESTIMATED GFR I S NOT APPLICABLE FOR DIALYSIS PATIEN TS. ZIA (test code = ZIA) Patrol Officer ID - ADMIN Lab Interpretation Abnormal (test code = 21669-6) [facility] [id number] 06:34:00 Test Item Value Reference Range Interpretation [...] S NOT APPLICABLE FOR DIALYSIS PATIEN TS. Patrol Officer ID - ADMINCBC with platelet count + automated [id number] 06:06:00 Test Item Value Reference Range Interpretation Comments WBC (test code = 6690-2) 5.7 See_Comment [A utomated message] The system GROU.PS generated this result transmitted ref erence range: 4.0 - 10 .0 K/L. The refe rence range was not u sed to interpret this result as normal/abnor mal. RBC (test code = 789-8) 2.41 See_Comment L [Au tomated message] The system GROU.PS generated this result transmitted ref erence range: 4.00 - 5 .00 M/L. The refe rence range was not u sed to interpret this result as normal/abnor mal. MCHC (test code = 786-4) 30.8 See_Comment L [A utomated message] The system GROU.PS generated this result transmitted ref erence range: [...] L [Aut omated message] 777-3) The system GROU.PS generated this result transmitted ref erence range: 150 - 43 0 K/CU MM. The referen ce range was not u sed to interpret this result as normal/abnor mal. MPV (test code = 10.5 fL 6-11.5 40404-5) nRBC (test code = 413) 0 See_Comment [Aut omated message] The system GROU.PS generated this result transmitted ref erence range: [...] See_Comment [Aut omated message] 670) The system GROU.PS generated this result transmitted ref erence range: 1.80 - 8 .00 K/L. The refe rence range was not u sed to interpret this result as normal/abnor mal. # Lymphs (test code = 1.66 See_Comment [Auto mated message] 414) The system GROU.PS generated this result transmitted ref erence range: 1.48 - 4 .50 K/L. The refe rence range was not u sed to interpret this result as normal/abnor mal. # Monos (test code = 0.28 See_Comment [Autom ated message] 415) The system GROU.PS generated this result transmitted ref erence range: 0.00 - 1 .30 K/L. The refe rence range was not u sed to interpret this result as normal/abnor mal. # Eos (test code = 416) 0.12 See_Comment [Au tomated message] The system GROU.PS generated this result transmitted ref erence range: 0.00 - 0 .50 K/L. The refe rence range was not u sed to interpret this result as normal/abnor mal. # Baso (test code = 417) 0.07 See_Comment [A utomated message] The system GROU.PS generated this result transmitted ref erence range: 0.00 - 0 .20 K/L. The refe rence range was not u sed to interpret this result as normal/abnor mal. Immature 0 % 0-0 Granulocytes-Relative (test code = 2801) Lab Interpretation (test Abnormal code = 64200-5) [facility] W/PLT COUNT & AUTO [id number] 06:06:00 Test Item Value Reference Range Interpretation [...] PERCENT (BEAKER) (test code = 2801) POCT-GLUCOSE [id number] 21:02:00 Test Item Value Reference Range Interpretation Comments POC-GLUCOSE METER 167 mg/dL 70-110 H : TESTED A T [facility] [address] (BEAKER) (test code [facility] [address], = 1538) [facility] [address]: Patrol Officer/Techni artemio ID = [id number] for Anne Busby POCT-GLUCOSE [id number] 18:12:00 Test Item Value Reference Range Interpretation Comments POC-GLUCOSE METER 121 mg/dL 70-110 H : TESTED A T [facility] [address] (BEAKER) (test code [address], = 1538) [place] [address]: Patrol Officer/Techni artemio ID = [id number] for Cortney Cohen POCT-GLUCOSE [id number] 11:54:00 Test Item Value Reference Range Interpretation Comments POC-GLUCOSE METER 117 mg/dL 70-110 H : TESTED A T [facility] [address] (BEAKER) (test code [address], = 1538) [place] [address]: Patrol Officer/Techni artemio ID = [id number] for Cortney Cohen COMPREHENSIVE METABOLIC [id number] 06:47:00 Test Item Value Reference Range Interpretation [...] S NOT APPLICABLE FOR DIALYSIS PATIEN TS. Patrol Officer ID - [id number] 06:42:00 Test Item Value Reference Range Interpretation Comments Magnesium (test code = 1.6 mg/dL 1.5-3 18416-8) ZIA (test code = ZIA) Patrol Officer ID - ADMIN Lab Interpretation (test Normal code = 91347-8) [facility] [id number] 06:42:00 Test Item Value Reference Range Interpretation Comments POC-GLUCOSE METER 101 mg/dL 70-110 : TESTED A T [facility] [address] (BEAKER) (test code [address], = 1538) [facility] [place] [address] 478: Patrol Officer/Techni artemio ID = [id number] for Anne Busby [id number] 06:42:00 Test Item Value Reference Range Interpretation Comments MAGNESIUM (BEAKER) (test code = 1.6 mg/dL 1.5-3.0 627) Patrol Officer ID - ADMINCBC W/PLT COUNT & AUTO [id number] 06:37:00 Test Item Value Reference Range Interpretation [...] PERCENT (BEAKER) (test code = 2801) POCT-GLUCOSE [id number] 20:24:00 Test Item Value Reference Range Interpretation Comments POC-GLUCOSE METER 155 mg/dL 70-110 H : TESTED A T [facility] 1317 (BEAKER) (test code [facility], = 1538) [facility] 77 478: Patrol Officer/Techni artemio ID = [id number] for Anne Busby POCT-GLUCOSE [id number] 16:39:00 Test Item Value Reference Range Interpretation Comments POC-GLUCOSE METER 164 mg/dL 70-110 H : Notified RN/MD: TESTED (BEAKER) (test code AT [facility] [address] = 1538) [facility] [address]: Patrol Officer/Techni artemio ID = [id number] for Alondra Kelley SARS-CoV2/RT-PCR (Asymptomatic ONLY)2019-12-30 15:57:00 Test Item Value Reference Range Interpretation Comments SARS-COV2/RT-PCR Negative Not Detected, (test code = Negative, See 62937-9) external report for linked test SARS-COV-2 [facility] JANET PERFORMING LAB (test code = 89703-7) ZIA (test code = Negative result for [...] of the Act. Fact Sheet for Healthcare Providers:https://www.[employer]/sites/default/f loco/product/documents/F act_Sheet_HC_Providers_L nin_OEQT-CkB-8.pdf Fact Sheet for Healthcare Patients:https://www.[employer]/sites/default/fi les/product/documents/Fa ct_Sheet_Patients_Lyra_S ARS-CoV-2.pdf Performing Laboratory:[facility] [place] [address] [facility] ([facility])2019-12-30 15:57:00 Test Item Value Reference Range Interpretation Comments SARS-COV2/RT-PCR (test Negative Not Detected, Negative, code = 1725674) See external report for linked test SARS-COV-[address] [facility] JANET (test code = 9810731) Negative result for this test determines that [...] 564(g) of the Act.Fact Sheet for Healthcare Providers:https://www.[employer]/sites/default/files/product/documents/Fact_Shee z_ND_Utboxedrl_Qsdp_RXNJ-JlM-6.pdfFact Sheet for Healthcare Patients:https://www.[employer]/sites/default/files/product/ documents/Jrzt_Whemx_Dlvfcxgb_Zeof_LDMV-QfF-4.pdfPerforming Laboratory:[facility], [place] [address]POAM-PYEARDX METER 2019-12-30 11:50:00 Test Item Value Reference Range Interpretation Comments POC-GLUCOSE METER 82 mg/dL 70-110 : Notified RN/MD: TESTED (BEAKER) (test code = AT [address] [address]) [place] [id number]: Patrol Officer/Techni artemio ID = [id number] for Alondra Kelley WOUND CULTURE + GRAM [id number] 10:45:00 Test Item Value Reference Interpretation Comments [...] gram negative (BEAKER) (test code rods = 451069) POCT-GLUCOSE [id number] 05:50:00 Test Item Value Reference Range Interpretation Comments POC-GLUCOSE METER 103 mg/dL 70-110 : Notified RN/MD: TESTED (BEAKER) (test code AT [facility] [address] = 1538) [place] [address]: Patrol Officer/Techni artemio ID = [id number] for Zonia Healy COMPREHENSIVE METABOLIC [id number] 05:44:00 Test Item Value Reference Range Interpretation [...] S NOT APPLICABLE FOR DIALYSIS PATIEN TS. Patrol Officer ID - ADMINCBC W/PLT COUNT & AUTO [id number] 05:29:00 Test Item Value Reference Range Interpretation [...] PERCENT (BEAKER) (test code = 2801) POCT-GLUCOSE [id number] 21:21:00 Test Item Value Reference Range Interpretation Comments POC-GLUCOSE METER 185 mg/dL 70-110 H : Notified RN/MD: TESTED ([facility]) (test code AT [address] = 1538) [place] [address]: Patrol Officer/Techni artemio ID = [id number] for Zonia Healy POCT-GLUCOSE [id number] 11:21:00 Test Item Value Reference Range Interpretation Comments POC-GLUCOSE METER 143 mg/dL 70-110 H : Notified RN/MD: TESTED ([facility]) (test code AT [facility] [address] [address] = 1538) [place] [address]: Patrol Officer/Techni artemio ID = [id number] for Alondra Kelley COMPREHENSIVE METABOLIC [id number] 06:27:00 Test Item Value Reference Range Interpretation [...] S NOT APPLICABLE FOR DIALYSIS PATIEN TS. Patrol Officer ID - ADMINPOCT-GLUCOSE [id number] 06:21:00 Test Item Value Reference Range Interpretation Comments POC-GLUCOSE METER 73 mg/dL 70-110 : Notified RN/MD: TESTED (BEAKER) (test code = AT [address]) [facility] [address]: Patrol Officer/Techni artemio ID = [id number] for Zonia Healy CBC W/PLT COUNT & AUTO [id number] 06:00:00 Test Item Value Reference Range Interpretation [...] % 0-0 PERCENT (BEAKER) (test code = 7651) POCT-GLUCOSE [id number] 20:48:00 Test Item Value Reference Range Interpretation Comments POC-GLUCOSE METER 84 mg/dL 70-110 : Notified RN/MD: TESTED (BEAKER) (test code = AT [address]) [place] [address]: Patrol Officer/Techni artemio ID = [id number] for Zonia Healy POCT-GLUCOSE [id number] 17:51:00 Test Item Value Reference Range Interpretation Comments POC-GLUCOSE METER 59 mg/dL 70-110 L : TESTED A T [facility] [address] (BEAKER) (test code = [address], 1538) [place] [address]: Patrol Officer/Techni artemio ID = [id number] for Christina r, Berta POCT-GLUCOSE [id number] 13:28:00 Test Item Value Reference Range Interpretation Comments POC-GLUCOSE METER 67 mg/dL 70-110 L : TESTED A T [facility] [address] (BEAKER) (test code = [address] [facility], 1538) [place] [address]: Patrol Officer/Techni artemio ID = [id number] for Christina r, Berta POCT-GLUCOSE [id number] 06:04:00 Test Item Value Reference Range Interpretation Comments POC-GLUCOSE METER 94 mg/dL 70-110 : TESTED A T [facility] [address] (BEAKER) (test code = [address], 1538) [place] [address]: Patrol Officer/Techni artemio ID = [id number] for Anahi Sherman COMPREHENSIVE METABOLIC [id number] 05:35:00 Test Item Value Reference Range Interpretation [...] S NOT APPLICABLE FOR DIALYSIS PATIEN TS. Patrol Officer ID - ADMINCBC W/PLT COUNT & AUTO [id number] 04:56:00 Test Item Value Reference Range Interpretation [...] PERCENT (BEAKER) (test code = 2801) POCT-GLUCOSE [id number] 20:43:00 Test Item Value Reference Range Interpretation Comments POC-GLUCOSE METER 137 mg/dL 70-110 H : TESTED A T [facility] [address] (BEAKER) (test code [address], = 1538) [facility] [place] 77 478: Patrol Officer/Techni artemio ID = [id number] for Anahi Sherman MR, EXTREMITY, LOWER, WITHOUT CONTRAST, [id number] 16:55:00MRI LEFT FOOT.Unlisted Reason for Exam - [...] MDReport Verified Date/Time: 12/27/2019 16:55:07 Reading Location: [facility] Radiology Reading Room MR lower extremity without IV contrast left [id number] 16:55:00Interface, External Ris In - 12/27/2019 4:57 [...] Ringort Verified Date/Time: 12/27/2019 16:55:07 Reading Location: [facility] Radiology Reading Room Electronically signed by: Adrienne CHU 12/27/2019 04:55 [facility] [id number] 14:19:00 Test Item Value Reference Range Interpretation Comments POC-GLUCOSE METER 232 mg/dL 70-110 H : TESTED A [facility] 131 [facility] (test code [facility] [address], = 1538) [facility] [place] [address]: Patrol Officer/Techni artemio ID = [id number] for Berta Servin CT, CTA AAA, W/ GÓMEZ.EXT.[id number] 11:38:00Bilateral lower extremities Addendum BeginsREPORT STATUS:A I agree with the nonvascular findings with exceptions and emphasis as below:*Moderate right and small left pleural effusions are partially visualized.*Large volume ascites.*Diffuse anasarca*The reflux of contrast into the hepatic veins is concerning for volume overload. Signed: Molly Linares MDReport Verified Date/Time: 12/27/2019 11:38:28 Reading Location: [facility] Diagnostic Imaging Reading Room - [facility] F1 [address]9Add[address]um EndsFINAL REPORT CT angiography [...] identified. However, significant calcification identified of the eagle left SFA, for example at image 516, [...] the right popliteal artery is patent, with kqjj-ol-nraajmpp diffuse calcification identified with no obstructive lesion [...] However, in the distal left SFA, the eagle artery substantial calcification identified and the stent [...] atherosclerosis identified. 4. In the right, the eagle right SFA is not filled by contrast [...] dictated regarding the non-vascular findings by the Spice Blender Radiologist. Signed: Shlomo Dockeryeport Verified Date/Time: 12/27/2019 07:59:51 Reading Location: [place] [address] [address] Reading Room Protein electrophoresis, serum 2019-12-27 [...] as normal/abnormal . ZIA (test code = Patrol Officer ID - ZIA) LEONIE Jay Lab Interpretation Abnormal (test code = 37271-7) [facility] ELECTROPHORESIS, [id number] 09:29:00 Test Item Value Reference Range Interpretation [...] chronic inflammatory response. No monoclonal bands detected. [id number] Rocio Galindo MD (BEAKER) (test code = (electronic signature) 2616) PROTEIN TOTAL SERUM, 6.3 gm/dL 6.0-8.3 SPEP (BEAKER) (test code = 1450) Patrol Officer ID - LEONIE FCTA AAA and [id number] 07:59:00Interface, External Ris In - 12/27/2019 11:40 AM CDTAddendum BeginsREPORT STATUS:A I agree with the nonvascular findings with exceptions and emphasis as below:*Moderate right andsmall left pleural effusions are partially visualized.*Large volume ascites.*Diffuse anasarca*The reflux of contrast into the hepatic veins is concerning for volume overload. Signed: Molly Linares MDReport Verified Date/Time: 12/27/2019 11:38:28 Reading Location: [facility] Diagnostic Imaging Reading Room - [address] RE[address] CT angiography of the [...] identified. However, significant calcification identified of the eagle left SFA, for example at image 516, [...] the right popliteal artery is patent, with zpfy-hy-ykrvwhbz diffuse calcification identified with no obstructive lesion [...] However, in the distal left SFA, the eagle artery substantial calcification identified and the stent [...] atherosclerosis identified. 4. In the right, the eagle right SFA is not filled by contrast [...] dictated regarding the non-vascular findings by the Spice Blender Radiologist. Signed: Shlomo Dockeryepemily Verified Date/Time: 12/27/2019 07:59:51 Reading Location: [place] [address] [facility] [id number] 06:56:00 Test Item Value Reference Range Interpretation Comments POC-GLUCOSE METER 39 mg/dL 70-110 LL : Notified RN/: TESTED (BEAKER) (test code = AT [address]) [facility] [address]: Patrol Officer/Techni artemio ID = [id number] for Anahi Sherman COMPREHENSIVE METABOLIC [id number] 06:15:00 Test Item Value Reference Range Interpretation [...] S NOT APPLICABLE FOR DIALYSIS PATIEN TS. Patrol Officer ID - ADMINPOCT-GLUCOSE [id number] 06:01:00 Test Item Value Reference Range Interpretation Comments POC-GLUCOSE METER 55 mg/dL 70-110 L : Notified RN/MD: TESTED (BEAKER) (test code = AT [address]LS [address]) [facility] [address]: Patrol Officer/Techni artemio ID = [id number] for Anahi Sherman CBC W/PLT COUNT & AUTO [id number] 05:44:00 Test Item Value Reference Range Interpretation [...] PERCENT (BEAKER) (test code = 2801) POCT-GLUCOSE [id number] 21:03:00 Test Item Value Reference Range Interpretation Comments POC-GLUCOSE METER 278 mg/dL 70-110 H : Notified RN/MD: [facility]ED ([facility] (test code AT [facility] [address] = [address]) [address], [place] [address]: Patrol Officer/Techni artemio ID = [id number] for Anahi Sherman POCT-GLUCOSE [id number] 16:53:00 Test Item Value Reference Range Interpretation Comments POC-GLUCOSE METER 70 mg/dL 70-110 : [facility] (test code = [address] [facility], 1538) [place] [address]: Patrol Officer/Techni artemio ID = [id number] for Nalini Jean Baptiste POCT-GLUCOSE [id number] 12:11:00 Test Item Value Reference Range Interpretation Comments POC-GLUCOSE METER 97 mg/dL 70-110 : [facility] (test code = [address] [facility] [place] [address]: Patrol Officer/Techni artemio ID = [id number] for Nalini Jean Baptiste POCT-GLUCOSE [id number] 06:21:00 Test Item Value Reference Range Interpretation Comments POC-GLUCOSE METER 71 mg/dL 70-110 : [facility] (BEAKER) (test code = [address] [facility] 1538) [place] [address]: Patrol Officer/Techni artemio ID = [id number] for Holly Alamo COMPREHENSIVE METABOLIC [id number] 05:50:00 Test Item Value Reference Range Interpretation [...] S NOT APPLICABLE FOR DIALYSIS PATIEN TS. Patrol Officer ID - ADMINCBC W/PLT COUNT & AUTO [id number] 05:17:00 Test Item Value Reference Range Interpretation [...] (BEAKER) (test code = 2801) Prepare Leuko-Red [id number] 23:54:00 Test Item Value Reference Range Interpretation Comments CROSSMATCH (test code = 2264) COMPATIBLE Unit ABO (test code = O Pos 5447318) UNIT NUMBER (test code = [id number] 934-0) Status (test code = 8771347) TX_TIMEINCHART Blood Bank Product (test code RED BLOOD CELLS = 2263) PRODUCT CODE (test code = O7258P41 933-2) [facility] [id number] 21:03:00 Test Item Value Reference Range Interpretation Comments POC-GLUCOSE METER 87 mg/dL 70-110 : TESTED A T [facility] [address] (BEAKER) (test code = [address], [address]) [place] [address]: Patrol Officer/Techni artemio ID = [id number] for Holly Alamo POCT-GLUCOSE [id number] 17:12:00 Test Item Value Reference Range Interpretation Comments POC-GLUCOSE METER 79 mg/dL 70-110 : TESTED A T [facility] [address] (BEAKER) (test code = [address], [address]) [place] [address]: Patrol Officer/Techni artemio ID = [id number] for Nalini Jean Baptiste POCT-GLUCOSE [id number] 11:37:00 Test Item Value Reference Range Interpretation Comments POC-GLUCOSE METER 262 mg/dL 70-110 H : TESTED A T [facility] [address] (BEAKER) (test code [address], = 1538) [place] [address]: Patrol Officer/Techni artemio ID = [id number] for Nalini Jean Baptiste COMPREHENSIVE METABOLIC [id number] 06:29:00 Test Item Value Reference Range Interpretation [...] S NOT APPLICABLE FOR DIALYSIS PATIEN TS. Patrol Officer ID - ADMINCBC W/PLT COUNT & AUTO [id number] 06:12:00 Test Item Value Reference Range Interpretation [...] PERCENT (BEAKER) (test code = 2801) POCT-GLUCOSE [id number] 06:09:00 Test Item Value Reference Range Interpretation Comments POC-GLUCOSE METER 83 mg/dL 70-110 : Notified RN/MD: TESTED (BEAKER) (test code = AT [facility] [address]) [facility] [address]: Patrol Officer/Techni artemio ID = [id number] for Anahi Sherman POCT-GLUCOSE [id number] 16:26:00 Test Item Value Reference Range Interpretation Comments POC-GLUCOSE METER 182 mg/dL 70-110 H : Notified RN/MD: TESTED (BEAKER) ([facility] [address] = [address]) [place] [address]: Patrol Officer/Techni artemio ID = [id number] for Alondra Kelley manual2020-09-25 09:17:00 Test Item Value Reference Range Interpretation Comments Rh Factor (test code = POS 2589) ABO Grouping (test code O PINK TOP 12/24/19 @ 0824 = 2588) [facility] GardenaType and screen, [id number] 07:31:00 Test Item Value Reference Range Interpretation Comments ABO/RH AUTOMATED (BEAKER) (test O POSITIVE ECHO code = 2260) Ab Scrn (test code = 890-4) NEGATIVE ECHO [facility]aCOMPREHENSIVE METABOLIC [id number] 06:42:00 Test Item Value Reference Range Interpretation [...] S NOT APPLICABLE FOR DIALYSIS PATIEN TS. Patrol Officer ID - ADMINPOCT-GLUCOSE [id number] 06:23:00 Test Item Value Reference Range Interpretation Comments POC-GLUCOSE METER 88 mg/dL 70-110 : TESTED A T [facility] [address] (BEAKER) (test code = [address], [address]) [facility] [address]: Patrol Officer/Techni artemio ID = [id number] for Anne Busby CBC W/PLT COUNT & AUTO [id number] 06:23:00 Test Item Value Reference Range Interpretation [...] PERCENT (BEAKER) (test code = 2801) POCT-GLUCOSE [id number] 21:38:00 Test Item Value Reference Range Interpretation Comments POC-GLUCOSE METER 126 mg/dL 70-110 H : TESTED A T [facility] [address] (BEAKER) (test code [address], = 1538) [facility] [address]: Patrol Officer/Techni artemio ID = [id number] for Anne Busby POCT-GLUCOSE [id number] 16:54:00 Test Item Value Reference Range Interpretation Comments POC-GLUCOSE METER 89 mg/dL 70-110 : Notified RN/MD: TESTED (ROBERT) (test code = AT [address]LS L [address]) [place], [facility] [address]: Patrol Officer/Techni artemio ID = [id number] for Alondra Kelley MR, EXTREMITY, LOWER, JOINT, WITHOUT CONTRAST, [id number] 16:10:00Unlisted Reason for Exam - Click Yes [...] Jordan Verified Date/Time: 12/23/2019 16:10:32 Reading Location: [address] Ortho Consult Reading Room MR lower extremity joint only without IV contrast left [id number] 16:10:00Interface, External Ris In - 12/23/2019 4:12 [...] Jordaneport Verified Date/Time: 12/23/2019 16:10:32 Reading Location: [address] Ortho Consult [facility], WITHOUT [id number] 15:43:00Unlisted Reason for Exam - Click Yes [...] Date/Time: 12/23/2019 15:43:24 MR brain without IV [id number] 15:43:00Interface, External Ris In - 12/23/2019 3:45 [...] Berta Muniz MDReport Verified Date/Time: 12/23/2019 15:43:24 [facility])2019-12-23 14:16:00 Test Item Value Reference Range Interpretation Comments SARS-COV2/RT-PCR (test Negative Not Detected, Negative, code = 1032781) See external report for linked test SARS-COV-[address] [facility] JANET (test code = 3667391) Negative result for this test determines that [...] 564(g) of the Act.Fact Sheet for Healthcare Providers:https://www.[employer]/sites/default/files/product/documents/Fact_Shee k_RZ_Vtytdqzjp_Izmx_ZXZQ-DeZ-5.pdfFact Sheet for Healthcare Patients:https://www.[employer]/sites/default/files/product/ documents/Pgio_Wtjdw_Xqoxbtjj_Broa_SFJA-HjK-6.pdfPerforming Laboratory:[facility], [place] [address]Pdpwc / lambda light chains, [id number] 12:25:00 Test Item Value Reference Interpretation Comments Range Mead Lt Chain,Free 474.4 mg/L 3.3-19.4 H (test code = 54025-2) Lambda Lt 225.6 mg/L 5.7-26.3 H Chain,Free (test code = 88188-4) Mead/Lambda,Free 2.1 0.26-1.65 H Free annabelle a/lambda (test code = ratio in serum of 1338083) normal individu als is 0.26-1.65. Excessproductio n [...] (test code = Performing Lab ZIA) EZ ActualMeds [facility] [address] [place] [address] Adonis Stein MD, PhD, CORI Lab Interpretation Abnormal (test code = 53862-1) [facility]aPOCT-GLUCOSE [id number] 11:27:00 Test Item Value Reference Range Interpretation Comments POC-GLUCOSE METER 189 mg/dL 70-110 H : Notified RN/MD: TESTED (BEAKER) (test code AT [address] = 1538) [facility] [address]: Patrol Officer/Techni artemio ID = [id number] for Alondra Kelley ARTERIAL DOPPLER LEGS, [id number] 11:22:00Reason for exam:->non healing ulcer , non [...] MDReport Verified Date/Time: 12/23/2019 11:22:31 Reading Location: [facility] Radiology Reading Room Arterial Doppler Legs [id number] 11:22:00 Interface, External Ris In - 12/23/2019 [...] MDReport Verified Date/Time: 12/23/2019 11:22:31 Reading Location: [facility] Radiology Reading Room [facility] CenterCOMPREHENSIVE METABOLIC [id number] 04:44:00 Test Item Value Reference Range Interpretation [...] S NOT APPLICABLE FOR DIALYSIS PATIEN TS. Patrol Officer ID - ADMINCBC W/PLT COUNT & AUTO [id number] 04:35:00 Test Item Value Reference Range Interpretation [...] H PERCENT (BEAKER) (test code = 2801) [id number] 04:29:00 Test Item Value Reference Range Interpretation Comments Ammonia (test code = 36 See_Comment [Autom ated 48101-1) message] The system which generated this result transmit merna reference range : 17 - 80 mol/L . The reference range was not u sed to interpret th is result as normal/abnormal . ZIA (test code = ZIA) Patrol Officer ID - ADMIN Lab Interpretation Normal (test code = 93357-9) [facility] GardenaAMMONIA2020-09-24 04:29:00 Test Item Value Reference Range Interpretation Comments AMMONIA (BEAKER) (test code = 348) 36 mol/L 17-80 Patrol Officer ID - ADMINPOCT-GLUCOSE [id number] 20:45:00 Test Item Value Reference Range Interpretation Comments POC-GLUCOSE METER 95 mg/dL 70-110 : TESTED A T [facility] [address] (BEAKER) (test code = [address], [address]) [place] [address]: Patrol Officer/Techni artemio ID = [id number] for Anne Busby POCT-GLUCOSE [id number] 17:08:00 Test Item Value Reference Range Interpretation Comments POC-GLUCOSE METER 107 mg/dL 70-110 : TESTED A T [facility] [address] (BEAKER) (test code [address], = 1538) [place] [address]: Patrol Officer/Techni artemio ID = [id number] for Jordyn Fonseca POCT-GLUCOSE [id number] 11:55:00 Test Item Value Reference Range Interpretation Comments POC-GLUCOSE METER 135 mg/dL 70-110 H : TESTED A T [facility] [address] (BEAKER) (test code [address], = 1538) [place] [address]: Patrol Officer/Techni artemio ID = [id number] for Jordyn Fonseca ROGER Titer & [id number] 11:40:00 Test Item Value Reference Range Interpretation Comments ROGER Titer (test code = 32883-2) 1:40 ROGER Pattern (test code = 1781) Speckled [facility] GardenaAnti-Nuclear Antibody (ROGER)2019-12-22 11:40:00 Test Item Value Reference Range Interpretation Comments ROGER (test code = 24911-4) Positive Negative A ZIA (test code = ZIA) Test performed by IFA method. Lab Interpretation (test Abnormal code = 44743-3) [facility]aANTI-NUCLEAR ANTIBODY (ROGER)2019-12-22 11:40:00 Test Item Value Reference Range Interpretation Comments ANTI-NUCLEAR ANTIBODY (ROGER) (BEAKER) Positive Negative A (test code = 418) Test performed by IFA method.ROGER TITER AND [id number] 11:40:00 Test Item Value Reference Range Interpretation Comments ROGER TITER (BEAKER) (test code = :40 1541) ROGER PATTERN (BEAKER) (test code = Speckled 1781) POCT-GLUCOSE [id number] 06:44:00 Test Item Value Reference Range Interpretation Comments POC-GLUCOSE METER 92 mg/dL 70-110 : TESTED A T [facility] [address] (BEAKER) (test code = [address], 1538) [facility] [place] [address]: Patrol Officer/Techni artemio ID = [id number] for Anne Busby COMPREHENSIVE METABOLIC [id number] 06:35:00 Test Item Value Reference Range Interpretation [...] S NOT APPLICABLE FOR DIALYSIS PATIEN TS. Patrol Officer ID - ADMINCBC W/PLT COUNT & AUTO [id number] 06:16:00 Test Item Value Reference Range Interpretation [...] PERCENT (BEAKER) (test code = 2801) POCT-GLUCOSE [id number] 20:38:00 Test Item Value Reference Range Interpretation Comments POC-GLUCOSE METER 85 mg/dL 70-110 : TESTED A T [facility] [address] (BEAKER) (test code = [address], 15[address]) [place] [address]: Patrol Officer/Techni artemio ID = [id number] for Anne Busby POCT-GLUCOSE [id number] 18:14:00 Test Item Value Reference Range Interpretation Comments POC-GLUCOSE METER 112 mg/dL 70-110 H : TESTED A T [facility] [address] (BEAKER) (test code [address], = 1538) [place] [address]: Patrol Officer/Techni artemio ID = [id number] for Christina r, Berta POCT-GLUCOSE [id number] 13:00:00 Test Item Value Reference Range Interpretation Comments POC-GLUCOSE METER 77 mg/dL 70-110 : TESTED A T [facility] [address] (BEAKER) (test code = [address], 1538) [place] [address]: Patrol Officer/Techni artemio ID = [id number] for Christina r, Berta POCT-GLUCOSE [id number] 07:32:00 Test Item Value Reference Range Interpretation Comments POC-GLUCOSE METER 60 mg/dL 70-110 L : TESTED A T [facility] [address] (BEAKER) (test code = [address], 15[address]) [place] [address]: Patrol Officer/Techni artemio ID = [id number] for Marissa Page COMPREHENSIVE METABOLIC [id number] 06:11:00 Test Item Value Reference Range Interpretation [...] S NOT APPLICABLE FOR DIALYSIS PATIEN TS. Patrol Officer ID - ADMINC-Reactive [id number] 06:06:00 Test Item Value Reference Range Interpretation Comments CRP (test code = 676) 1.63 mg/dL 0-0.5 H ZIA (test code = ZIA) Patrol Officer ID - ADMIN Lab Interpretation (test Abnormal code = 49873-5) [facility] GardenaC-REACTIVE [id number] 06:06:00 Test Item Value Reference Range Interpretation Comments C-REACTIVE PROTEIN (BEAKER) (test 1.63 mg/dL 0.00-0.50 H code = 676) Patrol Officer ID - ADMINPOCT-GLUCOSE [id number] 06:04:00 Test Item Value Reference Range Interpretation Comments POC-GLUCOSE METER 56 mg/dL 70-110 L : Notified RN/MD: TESTED (BEAKER) (test code = [address]) [facility] [place] [address]: Patrol Officer/Techni artemio ID = [id number] for Nelda Abdi CBC W/PLT COUNT & AUTO [id number] 05:53:00 Test Item Value Reference Range Interpretation [...] (BEAKER) (test code = 2801) U/S, ABDOMINAL, [id number] 22:02:00Reason for exam:->thrombocytopenia / eval for hepatosplenomegalyFINAL [...] MDReport Verified Date/Time: 12/20/2019 22:02:21 US abdomen [id number] 22:02:00Interface, External Ris In - 12/20/2019 10:04 [...] Hever Marin MDReport Verified Date/Time: 12/20/2019 22:02:21 [facility] [id number] 20:36:00 Test Item Value Reference Range Interpretation Comments POC-GLUCOSE METER 74 mg/dL 70-110 : Notified RN/: TESTED (BEAKER) (test code = AT [address]) [facility] [address]: Patrol Officer/Techni artemio ID = [id number] for Nelda Abdi POCT-GLUCOSE [id number] 17:50:00 Test Item Value Reference Range Interpretation Comments POC-GLUCOSE METER 72 mg/dL 70-110 : TESTED A T [facility] [address] (BEAKER) (test code = [address] [facility], 1538) [facility] [place] [address]: Patrol Officer/Techni artemio ID = [id number] for Berta Servin CT, BRAIN, WITHOUT [id number] 16:08:00Unlisted Reason for Exam - Click Yes [...] Date/Time: 12/20/2019 16:08:40 CT brain without IV [id number] 16:08:00Interface, External Ris In - 12/20/2019 4:10 [...] Signed: Berta Muniz Verified Date/Time: 12/20/2019 16:08:40 [facility]RAD, [facility]OT, 2 VIEWS, [id number] 15:15:00Reason for exam:->Rule out osteomyelitisShould this be [...] MDReport Verified Date/Time: 12/20/2019 15:15:25 Reading Location: [facility] Radiology Reading Room , FOOT, 2 VIEWS, [id number] 15:15:00Reason for exam:->Rule out osteomyelitisShould this be [...] MDReport Verified Date/Time: 12/20/2019 15:15:25 Reading Location: [facility] Radiology Reading Room XR foot 2 views [id number] 15:15:00Interface, External Ris In - 12/20/2019 3:17 [...] MDReport Verified Date/Time: 12/20/2019 15:15:25 Reading Location: [facility] Radiology Reading Room [facility] HospitalXR foot 2 views [id number] 15:15:00Interface, External Ris In - 12/20/2019 3:17 [...] MDReport Verified Date/Time: 12/20/2019 15:15:25 Reading Location: [facility] Radiology Reading Room [facility] HospitalAMMONIA2020-09-21 14:56:00 Test Item Value Reference Range Interpretation Comments AMMONIA (BEAKER) (test code = 348) 33 mol/L 17-80 Patrol Officer ID - ADMINBlood gas, [id number] 14:41:00 Test Item Value Reference Range Interpretation Comments pH, Arterial (test code 7.33 7.35-7.45 L = 2744-1) pCO2, Arterial (test 58 See_Comment H [Autom ated message] code = 2019-8) The system [employer] generated this result transmit merna reference range : 35 - 45 mmHg. The reference range was not used to interpret this result as normal/abnormal . pO2, Arterial (test 109 See_Comment H [Automa merna message] code = 2703-7) The system [employer] generated this result transmit merna reference range [...] % Lab Interpretation Abnormal (test code = 10385-6) [facility] GardenaBLOOD GAS, [id number] 14:41:00 Test Item Value Reference Range Interpretation [...] code = 1819) 32.0 % Occult blood, [id number] 11:56:00 Test Item Value Reference Range Interpretation Comments Occult blood (test code = 2335-8) Negative Negative Lab Interpretation (test code = Normal 32576-8) [facility] GardenaOCCULT BLOOD, [id number] 11:56:00 Test Item Value Reference Range Interpretation Comments FECAL OCCULT BLOOD (BEAKER) (test Negative Negative code = 618) POCT-GLUCOSE [id number] 11:39:00 Test Item Value Reference Range Interpretation Comments POC-GLUCOSE METER 88 mg/dL 70-110 : TESTED A T [facility] [address] (BEAKER) (test code = [address], 15[address]) [facility] [address]: Patrol Officer/Techni artemio ID = [id number] for Gifty Phelps [id number] 11:22:00 Test Item Value Reference Range Interpretation Comments Haptoglobin (test code = <8 14-258 L 4542-7) ZIA (test code = ZIA) Patrol Officer ID - LEONIE F Lab Interpretation (test Abnormal code = 35839-5) [facility] GardenaHAPTOGLOBIN2020-09-21 11:22:00 Test Item Value Reference Range Interpretation Comments HAPTOGLOBIN (BEAKER) (test code = < mg/dL 14-258 L 366) Patrol Officer ID - LEONIE FT4, [id number] 11:01:00 Test Item Value Reference Range Interpretation Comments Free T4 (test code = 0.52 ng/dL 0.9-1.8 L 3024-7) ZIA (test code = ZIA) Patrol Officer ID - ADMIN Lab Interpretation (test Abnormal code = 96254-0) [facility] GardenaT4, [id number] 11:01:00 Test Item Value Reference Range Interpretation Comments FREE T4 (BEAKER) (test code = 655) 0.52 ng/dL 0.90-1.80 L Patrol Officer ID - ADMINPeripheral Blood Smear - Path [id number] 08:19:00 Test Item Value Reference Range Interpretation [...] Griffith M.D. code = 2849) (electronic signature) [facility] GardenaPERIPHERAL BLOOD SMEAR - PATHOLOGIST REVIEW 2019-12-20 08:19:00 Test Item Value Reference Range Interpretation Comments RBC MORPHOLOGY Target Cells (BEAKER) (test code = 2846) RBC MORPHOLOGY Basophilic Stippling (BEAKER) (test code = 21661) RBC MORPHOLOGY Nucleated Red Blood Cells (BEAKER) (test code = 91474) PERIPHERAL SMR Normochromic normocytic REVIEW (BEAKER) anemia with a few target (test code = 2640) cells, nucleated RBCs and basophilic stippling. No increase in schistocytes. WBCs normal in number and morphology. Thrombocytopenia with normal platelet morphology. ZYAN-MECGZMIDTKE-120 Jovita Griffith M.D. 2 (BEAKER) (test (electronic signature) code = 2849) Vitamin B12 and [id number] 06:37:00 Test Item Value Reference Range Interpretation Comments Vitamin B12 (test 1431 pg/mL 211-911 H code = 2132-9) Folate (test code = 17.00 ng/mL See_Comment [Automa merna 2284-8) message] The system which generated this result transmit merna reference range : >=5.4. The reference range was not used to interpret this result as normal/abnormal . ZIA (test code = ZIA) Patrol Officer ID - ADMIN Lab Interpretation Abnormal (test code = 57909-4) [facility] [id number] 06:37:00 Test Item Value Reference Range Interpretation Comments VITAMIN B12 (BEAKER) (test code = 1431 pg/mL 211-911 H 774) FOLATE (BEAKER) (test code = 362) 17.00 ng/mL >=5.4 Patrol Officer ID - ADMINPOCT-GLUCOSE [id number] 06:32:00 Test Item Value Reference Range Interpretation Comments POC-GLUCOSE METER 79 mg/dL 70-110 : TESTED A T [address] (BEAKER) (test code = [address], [address]) [facility] [place] [address]: Patrol Officer/Techni artemio ID = [id number] for Anahi Sherman TSH/Free T4 If [id number] 06:25:00 Test Item Value Reference Range Interpretation Comments TSH (test code = 21.210 See_Comment H [Automated 63754-1) message] The system which generated this result transmit merna reference range : 0.350 - 5.500 uIU/mL. The reference range was not used to interpret this result as normal/abnormal . ZIA (test code = ZIA) Patrol Officer ID - ADMIN Lab Interpretation Abnormal (test code = 05702-6) [facility] 06[facility]25[facility]00 Test Item Value Reference Range Interpretation Comments Ferritin (test code = 595.00 ng/mL 10-291 H 2276-4) ZIA (test code = ZIA) Patrol Officer ID - ADMIN Lab Interpretation (test Abnormal code = 35075-2) [facility] 06:25:00 Test Item Value Reference Range Interpretation Comments FERRITIN (BEAKER) (test code = 595.00 ng/mL 10.00-291.00 H 361) Patrol Officer ID - ADMINTSH/FREE T4 IF [id number] 06:25:00 Test Item Value Reference Range Interpretation Comments THYROID STIMULATING HORMONE 21.210 uIU/mL 0.350-5.500 H (BEAKER) (test code = 772) Patrol Officer ID - ADMINPT/pRCF3258-45-49 06:06:00 Test Item Value Reference Interpretation Comments Range Protime (test code = 13.5 See_Comment H [Autom ated 7142-2) message] The system which generated this result transmitted reference range : 9.3 - 12.0 sec. The reference range was not used to interpret this result as normal/abnormal . INR (test code = 1.25 See_Comment [Automated 2681-6) message] The system which generated this result transmitted reference range : <=5.90. The reference range was not used to interpret this result as normal/abnormal . PTT (test code = 38.2 See_Comment H [Automated 87974-4) message] The system which generated this result transmitted reference range : 23.0 - 35.0 sec . The reference range was not used to interpret this result as normal/abnormal . ZAI (test code = RECOMMENDED ZIA) COUMADIN/WARFARIN INR THERAPY RANGESSTANDARD DOSE: 2.0 - 3.0 Includes: PROPHYLAXIS for venous thrombosis, systemic embolization; TREATMENT for venous thrombosis and/or pulmonary embolus.HIGH RISK: Target INR is 2.5-3.5 for patients with mechanical heart valves.Final Information (Auto Output)Final Information (Auto Output)Final Information (Auto Output) Lab Interpretation Abnormal (test code = 18420-6) [facility]2020-09-21 06:06:00 Test Item Value Reference Range Interpretation Comments Fibrinogen (test code = 340 mg/dL 624-024 6164-7) ZIA (test code = ZIA) Final Information (Auto Output) Lab Interpretation (test Normal code = 55740-9) [facility]2020-09-21 06:06:00 Test Item Value Reference Range Interpretation Comments FIBRINOGEN LEVEL (BEAKER) (test 340 mg/dL 200-400 code = 658) Final Information (Auto Output)PT/[id number] 06:06:00 Test Item Value Reference Range Interpretation [...] = 2502-3) ZIA (test code = ZIA) Patrol Officer ID - ADMIN Lab Interpretation (test Abnormal code = 83343-5) [facility], TIBC, % SAT. (WITHOUT FERRITIN)2019-12-20 05:59:00 Test Item Value Reference Range Interpretation Comments IRON (BEAKER) (test code = 547) 92.0 ug/dL 45.0-170.0 TOTAL IRON BINDING CAPACITY 151 ug/dL 250-550 L (BEAKER) (test code = 769) IRON % SATURATION (2) (BEAKER) 61 % 20-55 H (test code = 2590) Patrol Officer ID - ADMINCOMPREHENSIVE METABOLIC [id number] 05:55:00 Test Item Value Reference Range Interpretation [...] S NOT APPLICABLE FOR DIALYSIS PATIEN TS. Patrol Officer ID - ZVQUXH-jsnhj0577-58-21 05:46:00 Test Item Value Reference Range Interpretation Comments D-Dimer, Quant (test 1.09 mg/L <0.50 H code = 15670-5) ZIA (test code = ZIA) REGARDING D-DIMER RESULTS: The 98% NPV (Negative Predictive Value) for DVT/PE exclusion is 0.50 mg/L FEU as suggested by the cap maker and as approved by the FDA.Final Information (Auto Output) Lab Interpretation (test Abnormal code = 89978-7) [facility]-[id number] 05:46:00 Test Item Value Reference Range Interpretation Comments D-DIMER QUANTITATIVE (BEAKER) (test 1.09 mg/L <0.50 H code = 671) REGARDING D-DIMER RESULTS: The 98% NPV (Negative Predictive Value) for DVT/PE exclusion is 0.50 mg/LFEU as suggested by the cap maker and as approved by the FDA.Final Information (Auto Output)Reticulocyte [id number] 05:42:00 Test Item Value Reference Range Interpretation Comments % Retic (test code = 85351-3) 5.9 % 0.4-2.9 H Lab Interpretation (test code = Abnormal 71756-8) [facility]ICULOC[facility]TE [id number] 05:42:00 Test Item Value Reference Range Interpretation Comments RETICULOCYTE COUNT PCT (BEAKER) (test 5.9 % 0.4-2.9 H code = 575) CBC W/PLT COUNT & AUTO [id number] 05:33:00 Test Item Value Reference Range Interpretation [...] U/L 107-206 ZIA (test code = ZIA) Patrol Officer ID - ADMIN Lab Interpretation (test Normal code = 48615-8) [facility] DEHYDROGENASE (LDH)2019-12-19 21:19:00 Test Item Value Reference Range Interpretation Comments LACTATE DEHYDROGENASE (BEAKER) (test 178 U/L 107-206 code = 635) Patrol Officer ID - ADMINPOCT-GLUCOSE [id number] 20:47:00 Test Item Value Reference Range Interpretation Comments POC-GLUCOSE METER 102 mg/dL 70-110 : TESTED A T [address] [address] (BEAKER) (test code [address], = 1538) [place] [address]: Patrol Officer/Techni artemio ID = [id number] for Anahi Sherman POCT-GLUCOSE [id number] 16:18:00 Test Item Value Reference Range Interpretation Comments POC-GLUCOSE METER 96 mg/dL 70-110 : TESTED A T [address] (BEAKER) (test code = [address], [address]) [place] [address]: Patrol Officer/Techni artemio ID = [id number] for Nalini Jean Baptiste Basic Metabolic [id number] 06:26:00 Test Item Value Reference Range Interpretation Comments Sodium (test code = 138 meq/L 717-178 8796-2) Potassium (test code = 3.9 meq/L 3.6-5.5 2823-3) Chloride (test code = 99 meq/L 98-106 2075-0) CO2 (test code = 30 meq/L 20-29 H 2028-9) BUN (test code = 47 mg/dL 10-26 H 3094-0) Creatinine (test code 3.04 mg/dL 0.5-1.2 H = 2160-0) Glucose (test code = 82 mg/dL 70-110 2345-7) Calcium (test code = 7.9 mg/dL 8.5-10.5 L 90816-3) EGFR (test code = 15 mL/min/1.73 [place] [address]-6) NOT ACCURATE CREATININE CLEARANCE IN PREDICTING GLOMERULAR FILTRATION RATE . ESTIMATED GFR I S NOT APPLICABLE FOR DIALYSIS PATIENTS. ZIA (test code = ZIA) Patrol Officer ID - ADMIN Lab Interpretation Abnormal (test code = 57017-0) [facility] METABOLIC [id number] 06:26:00 Test Item Value Reference Range Interpretation [...] S NOT APPLICABLE FOR DIALYSIS PATIEN TS. Patrol Officer ID - ADMINCBC W/PLT COUNT & AUTO [id number] 06:04:00 Test Item Value Reference Range Interpretation [...] PERCENT (BEAKER) (test code = 2801) POCT-GLUCOSE [id number] 05:35:00 Test Item Value Reference Range Interpretation Comments POC-GLUCOSE METER 85 mg/dL 70-110 : Notified RN/MD: TESTED ([facility]) (test code = AT [facility] [address] [address]) [place] [address]: Patrol Officer/Techni artemio ID = [id number] for Niraj Zonia POCT-GLUCOSE [id number] 21:46:00 Test Item Value Reference Range Interpretation Comments POC-GLUCOSE METER 125 mg/dL 70-110 H : Notified RN/MD: TESTED ([facility]) (test code AT [facility] [address]) [place] [address]: Patrol Officer/Techni artemio ID = [id number] for Keen , Zonia POCT-GLUCOSE [id number] 16:17:00 Test Item Value Reference Range Interpretation Comments POC-GLUCOSE METER 103 mg/dL 70-110 : TESTED A T [address] (BEAKER) (test code [address], = 1538) [place] [address]: Patrol Officer/Techni artemio ID = [id number] for Rachelle Jean Baptisteea POCT-GLUCOSE [id number] 07:56:00 Test Item Value Reference Range Interpretation Comments POC-GLUCOSE METER 111 mg/dL 70-110 H : TESTED A T [address] (BEAKER) (test code [address], = 1538) [place] [address]: Patrol Officer/Techni artemio ID = [id number] for Akhil hurtado, Rachelleea POCT-GLUCOSE [id number] 06:25:00 Test Item Value Reference Range Interpretation Comments POC-GLUCOSE METER 57 mg/dL 70-110 L : TESTED A T [address] (BEAKER) (test code = [address], [address]) [place] [address]: Patrol Officer/Techni artemio ID = [id number] for Brow n, Anne POCT-GLUCOSE [id number] 21:55:00 Test Item Value Reference Range Interpretation Comments POC-GLUCOSE METER 76 mg/dL 70-110 : TESTED A T [address] (BEAKER) (test code = [address], [address]) [place] [address]: Patrol Officer/Techni artemio ID = [id number] for Brow n, Anne POCT-GLUCOSE [id number] 18:03:00 Test Item Value Reference Range Interpretation Comments POC-GLUCOSE METER 81 mg/dL 70-110 : TESTED A T [address] (BEAKER) (test code = [address], 15[address]) [place] [address]: Patrol Officer/Techni artemio ID = [id number] for Abrahamadonis toro, Ericka POCT-GLUCOSE [id number] 12:33:00 Test Item Value Reference Range Interpretation Comments POC-GLUCOSE METER 73 mg/dL 70-110 : TESTED A T [address] (BEAKER) (test code = [address], [address]) [place] [address]: Patrol Officer/Techni artemio ID = [id number] for Kathryn Boltonsa Hepatitis B surface [id number] 10:49:00 Test Item Value Reference Range Interpretation Comments Hep B S Ab (test code <8.0 See_Comment [Auto mated = 05201-3) message] The system which generated this result transmit merna reference range : <8.0 mIU/mL. e reference range was not used to interpret this result as normal/abnormal . ZIA (test code = ZIA) Patrol Officer ID Bijal Jay Lab Interpretation Normal (test code = 88457-9) [facility] B SURFACE [id number] 10:49:00 Test Item Value Reference Range Interpretation Comments HEPATITIS B SURFACE ANTIBODY < mIU/mL <8.0 (BEAKER) (test code = 647) Patrol Officer ID - LEONIE FHepatitis B core antibody, [id number] 10:43:00 Test Item Value Reference Range Interpretation Comments Hep B Core Total Ab Nonreactive Nonreactive (test code = 39197-0) ZIA (test code = ZIA) Patrol Officer ID Bijal Jay Lab Interpretation (test Normal code = 73162-9) [facility] C [id number] 10:43:00 Test Item Value Reference Range Interpretation Comments Hepatitis C Ab (test Nonreactive Nonreactive code = 14635-9) ZIA (test code = ZIA) Patrol Officer ID Bijal Jay Lab Interpretation (test Normal code = 85480-4) [facility] C [id number] 10:43:00 Test Item Value Reference Range Interpretation Comments HEPATITIS C ANTIBODY (BEAKER) Nonreactive Nonreactive (test code = 367) Patrol Officer ID - LEONIE FHEPATITIS B CORE ANTIBODY, [id number] 10:43:00 Test Item Value Reference Range Interpretation Comments HEPATITIS B CORE TOTAL ANTIBODY Nonreactive Nonreactive (BEAKER) (test code = 497) Patrol Officer ID Bijal HADLEY FPOCT-GLUCOSE [id number] 06:31:00 Test Item Value Reference Range Interpretation Comments POC-GLUCOSE METER 67 mg/dL 70-110 L : TESTED A T [address] (BEAKER) (test code = [address], 15[address]) [facility] [place] [address]: Patrol Officer/Techni artemio ID = [id number] for Anne Busby COMPREHENSIVE METABOLIC [id number] 05:10:00 Test Item Value Reference Range Interpretation [...] S NOT APPLICABLE FOR DIALYSIS PATIEN TS. Patrol Officer ID - ADMINCBC W/PLT COUNT & AUTO [id number] 04:36:00 Test Item Value Reference Range Interpretation [...] PERCENT (BEAKER) (test code = 2801) POCT-GLUCOSE [id number] 21:14:00 Test Item Value Reference Range Interpretation Comments POC-GLUCOSE METER 79 mg/dL 70-110 : TESTED A T [address] (BEAKER) (test code = [address], [address]) [facility] [address]: Patrol Officer/Techni artemio ID = [id number] for Anne Busby POCT-GLUCOSE [id number] 18:35:00 Test Item Value Reference Range Interpretation Comments POC-GLUCOSE METER 68 mg/dL 70-110 L : Notified RN/MD: TESTED ([facility]OBERT) (test code = AT [facility] L [address]) [place] [address]: Patrol Officer/Techni artemio ID = [id number] for Alondra Kelley SARS-COV2/RT-PCR ([facility])2019-12-16 17:53:00 Test Item Value Reference Range Interpretation Comments SARS-COV2/RT-PCR (test Negative Not Detected, Negative, code = 4760206) See external report for linked test SARS-COV-2 PERFORMING LAB [facility] (test code = 7467638) Negative result for this test determines that [...] 564(g) of the Act.Fact Sheet for Healthcare Providers:https://www.[employer]/sites/default/files/product/documents/Fact_Troy ortizb_TY_Hwxtyuybh_Hhkm_YCPG-MvI-7.pdfFact Sheet for Healthcare Patients:https://www.[employer]/sites/default/files/product/ documents/Fdto_Tazep_Exsafsdq_Kppf_OMOQ-IfA-5.pdfPerforming Laboratory:[facility], [place] [address]Xhuzzpvzz B surface [id number] 16:57:00 Test Item Value Reference Range Interpretation Comments HBsAg Screen (test code = Nonreactive Nonreactive 5195-3) ZIA (test code = ZIA) Patrol Officer ID - ADMIN Lab Interpretation (test Normal code = 46086-0) [facility] SURFACE [id number] 16:57:00 Test Item Value Reference Range Interpretation Comments HEPATITIS B SURFACE ANTIGEN (2) Nonreactive Nonreactive (BEAKER) (test code = 2585) Patrol Officer ID - ADMINANG, TUNNELED CATHETER [id number] 15:06:00Reason for Central Line/PICC?->Need for hemodialysis accessReason [...] the patient's medical record by the nurse. Relay Operator: Soto Arias M.D. Needle Straightener: none. Approach: Right internal jugular vein [...] Arias MDReport Verified Date/Time: 12/16/2019 15:06:45Reading Location: [facility] Radiology Reading Room IR Tunneled Catheter [id number] 15:06:00 Interface, External Ris In - 12/16/2019 [...] the patient's medical record by the nurse. Relay Operator: Roberto Carlos Carroll istant: none. Approach: Right [...] MDReport Verified Date/Time: 12/16/2019 15:06:45 Reading Location: [facility] Rad[facility] [id number] 14:59:00 Test Item Value Reference Range Interpretation Comments POC-GLUCOSE METER 70 mg/dL 70-110 : Notified RN/MD: [facility] (test code = AT [facility] [address]) [facility] [address]: Patrol Officer/Techni artemio ID = [id number] for Alondra Kelley POCT-GLUCOSE [id number] 11:13:00 Test Item Value Reference Range Interpretation Comments POC-GLUCOSE METER 72 mg/dL 70-110 : Notified RN/MD: TESTED ([facility]) (test code = AT [facility] [address]) [facility] [address]: Patrol Officer/Techni artemio ID = [id number] for Syeda Kelleyly RAD, CHEST, 1 VIEW, NON [id number] 09:20:00Reason for exam:->fallShould this be performed at [...] MDReport Verified Date/Time: 12/16/2019 09:20:06 Reading Location: [facility] Radiology Reading Room XR chest 1 view portable / [id number] 09:20:00Interface, External Ris In - 12/16/2019 9:22 [...] MDReport Verified Date/Time: 12/16/2019 09:20:06 Reading Location: [facility] Radiology Reading Room Electronically yeimi d by: SOTO ARIAS MD on 12/16/2019 09:20 [facility] POCT-GLUCOSE [id number] 06:03:00 Test Item Value Reference Range Interpretation Comments POC-GLUCOSE METER 74 mg/dL 70-110 : Notified RN/MD: TESTED (BEAKER) (test code = AT [facility] [address]) [facility] [address]: Patrol Officer/Techni artemio ID = [id number] for Zonia Healy BASIC METABOLIC [id number] 05:08:00 Test Item Value Reference Range Interpretation [...] S NOT APPLICABLE FOR DIALYSIS PATIEN TS. Patrol Officer ID - ADMINProthrombin time/[id number] 05:01:00 Test Item Value Reference Interpretation Comments Range Protime (test code = 14.1 See_Comment H [Autom ated 2882-2) message] The system which generated this result transmitted reference range : 9.3 - 12.0 sec. The reference range was not used to interpret this result as normal/abnormal . INR (test code = 1.31 See_Comment [Automated 9671-6) message] The system which generated this result [...] Output) Lab Interpretation Abnormal (test code = 98284-4) [facility]aPROTHROMBIN TIME/[id number] 05:01:00 Test Item Value Reference Range Interpretation [...] Information (Auto Output)CBC W/PLT COUNT & AUTO [id number] 04:46:00 Test Item Value Reference Range Interpretation [...] PERCENT (BEAKER) (test code = 2801) POCT-GLUCOSE [id number] 17:13:00 Test Item Value Reference Range Interpretation Comments POC-GLUCOSE METER 220 mg/dL 70-110 H TESTED AT [place] [address] ([facility]) (test code = [facility] 1538) [address] BASIC METABOLIC [id number] 15:47:00 Test Item Value Reference Range Interpretation [...] NOT APPLICABLE FOR DIALYSIS PATIEN TS. POCT-GLUCOSE [id number] 11:30:00 Test Item Value Reference Range Interpretation Comments POC-GLUCOSE METER 268 mg/dL 70-110 H TESTED AT [place] [address] ([facility] (test code = [facility] 1538) [address] POCT-GLUCOSE [id number] 07:08:00 Test Item Value Reference Range Interpretation Comments POC-GLUCOSE METER 208 mg/dL 70-110 H TESTED AT [place] [address] ([facility]) (test code = [facility] 1538) [address] CALCIUM, [id number] 06:47:00 Test Item Value Reference Range Interpretation Comments CALCIUM IONIZED (BEAKER) (test 1.11 mmol/L 1.12-1.27 L code = 698) PH, BLOOD (BEAKER) (test code = 7.40 1810) BASIC METABOLIC [id number] 06:40:00 Test Item Value Reference Range Interpretation [...] S NOT APPLICABLE FOR DIALYSIS PATIEN TS. [id number] 06:33:00 Test Item Value Reference Range Interpretation Comments PHOSPHORUS (BEAKER) (test code = 5.1 mg/dL 2.3-4.7 H 604) [id number] 06:33:00 Test Item Value Reference Range Interpretation Comments MAGNESIUM (BEAKER) (test code = 2.0 mg/dL 1.6-2.6 627) LACTIC ACID, VENOUS, WHOLE [id number] 06:02:00 Test Item Value Reference Range Interpretation Comments LACTATE BLOOD VENOUS (2) (BEAKER) 0.8 mmol/L 0.5-2.2 (test code = 2872) Effective 08/02/2015: Units/Reference Range ChangeNew: 0.5-2.2 mmol/L Previous: 5-20 mg/dLCBC W/PLT COUNT & AUTO [id number] 05:54:00 Test Item Value Reference Range Interpretation [...] PERCENT (BEAKER) (test code = 2801) POCT-GLUCOSE [id number] 21:30:00 Test Item Value Reference Range Interpretation Comments POC-GLUCOSE METER 248 mg/dL 70-110 H TESTED AT [place] [address] ([facility]) (test code = JULIANO Osborne [place] 1538) [address] RAD, [id number] 21:22:00Reason for exam:->fall, tailbone painFINAL REPORT RAD, [...] MDReport Verified Date/Time: 09/04/2017 21:22:03 Reading Location: [address] Reading Room POCT-GLUCOSE [id number] 17:37:00 Test Item Value Reference Range Interpretation Comments POC-GLUCOSE METER 222 mg/dL 70-110 H TESTED AT [place] [address] ([facility]) (test code = [address]ULIAN[address] Osborne [place] 1538) [address] POCT-GLUCOSE [id number] 13:55:00 Test Item Value Reference Range Interpretation Comments POC-GLUCOSE METER 194 mg/dL 70-110 H TESTED AT [place] [address] ([facility]) (test code = JULIANO Osborne [facility] 1538) [address] POCT-GLUCOSE [id number] 12:34:00 Test Item Value Reference Range Interpretation Comments POC-GLUCOSE METER 229 mg/dL 70-110 H TESTED AT [place] [address] ([facility]) (test code = JULIANO Osborne [place] 1538) [address] POCT-GLUCOSE [id number] 08:00:00 Test Item Value Reference Range Interpretation Comments POC-GLUCOSE METER 159 mg/dL 70-[address] [facility] 67[address] (BEAKER) (test code = [place] [address]) [address] CALCIUM, [id number] 06:00:00 Test Item Value Reference Range Interpretation Comments CALCIUM IONIZED (BEAKER) (test 1.05 mmol/L 1.12-1.27 L code = 698) PH, BLOOD (BEAKER) (test code = 7.45 1810) [id number] 05:59:00 Test Item Value Reference Range Interpretation Comments PHOSPHORUS (BEAKER) (test code = 4.8 mg/dL 2.3-4.7 H 604) [id number] 05:59:00 Test Item Value Reference Range Interpretation Comments MAGNESIUM (BEAKER) (test code = 2.0 mg/dL 1.6-2.6 627) BASIC METABOLIC [id number] 05:59:00 Test Item Value Reference Range Interpretation [...] = 380) CBC W/PLT COUNT & AUTO [id number] 05:32:00 Test Item Value Reference Range Interpretation [...] 417) IMMATURE GRANULOCYTES-RELATIVE 0 % 0-1 PERCENT ([facility] (test code = 2801) POCT-GLUCOSE [id number] 20:36:00 Test Item Value Reference Range Interpretation Comments POC-GLUCOSE METER 211 mg/dL 70-110 H TESTED AT [place] [address] ([facility] (test code = JULIANO Osborne [facility] 1538) [address] CREATININE, RANDOM [id number] 19:55:00 Test Item Value Reference Range Interpretation Comments CREATININE URINE (BEAKER) (test 16.1 mg/dL code = 375) Reference Range: No NormalsPROTEIN, RANDOM [id number] 19:55:00 Test Item Value Reference Range Interpretation Comments PROTEIN, URINE (BEAKER) (test code 102 mg/dL 0-14 H = 1569) POCT-GLUCOSE [id number] 18:04:00 Test Item Value Reference Range Interpretation Comments POC-GLUCOSE METER 177 mg/dL 70-110 H TESTED AT [place] [address] ([facility]) (test code = JULIANO Osborne [facility] 1538) [address] POCT-GLUCOSE [id number] 11:59:00 Test Item Value Reference Range Interpretation Comments POC-GLUCOSE METER 244 mg/dL 70-110 H TESTED AT [place] [address] ([facility]) (test code = JULIANO Osborne [facility] 1538) [address] POCT-GLUCOSE [id number] 07:53:00 Test Item Value Reference Range Interpretation Comments POC-GLUCOSE METER 160 mg/dL 70-110 H TESTED AT [place] [address] ([facility]) (test code = JULIANO Osborne [facility] 1538) [address] BASIC METABOLIC [id number] 05:29:00 Test Item Value Reference Range Interpretation [...] S NOT APPLICABLE FOR DIALYSIS PATIEN TS. [id number] 05:21:00 Test Item Value Reference Range Interpretation Comments MAGNESIUM (BEAKER) (test code = 2.1 mg/dL 1.6-2.6 627) HEPATIC FUNCTION [id number] 05:21:00 Test Item Value Reference Range Interpretation [...] code = 23 U/L 6-55 347) TROPONIN [id number] 05:18:00 Test Item Value Reference Range Interpretation [...] PERCENT (BEAKER) (test code = 2801) TROPONIN [id number] 23:40:00 Test Item Value Reference Range Interpretation [...] acidosis, acute neurological disease, and persistent tachyarrhythmia.POCT-GLUCOSE [id number] 22:51:00 Test Item Value Reference Range Interpretation Comments POC-GLUCOSE METER 214 mg/dL 70-[address] [facility] 6720 (ROBERT) (test code = J[place]IANO [place] 1538) [address] RAD, CHEST, 1 VIEW, NON [id number] 21:42:00Reason for exam:->CHEST PAINShould this be performed at the bedside?->YesFINAL REPORT RAD, CHEST, 1 VIEW, NON DEPT INDICATION: CHEST PAIN COMPARISON: Chest x-ray 4 weeks ago TECHNIQUE: Single frontal view of the chest. IMPRESSION:Cardiomegaly.Mild pulmonary interstitial edema with a small right- sided effusion.No acute osseous abnormality. Signed: Dario Abraham MDReport Verified Date/Time: 09/02/2017 21:42:11 Reading Location: [address] Reading Room CREATININE, RANDOM [id number] 21:10:00 Test Item Value Reference Range Interpretation Comments CREATININE URINE (BEAKER) (test 35.5 mg/dL code = 375) Reference Range: No NormalsSODIUM, RANDOM [id number] 21:10:00 Test Item Value Reference Range Interpretation Comments SODIUM URINE (BEAKER) (test code = 80 meq/L 243) Reference Range: No NormalsURINALYSIS W/ [id number] 20:59:00 Test Item Value Reference Range Interpretation [...] code = 514) SOURCE(BEAKER) (test code = 0261) BASIC METABOLIC [id number] 16:49:00 Test Item Value Reference Range Interpretation [...] S NOT APPLICABLE FOR DIALYSIS PATIEN TS. [id number] 16:38:00 Test Item Value Reference Range Interpretation [...] (BEAKER) (test code = 700) BASIC METABOLIC [id number] 13:43:00 Test Item Value Reference Range Interpretation [...] NOT APPLICABLE FOR DIALYSIS PATIEN TS. POCT-GLUCOSE [id number] 12:44:00 Test Item Value Reference Range Interpretation Comments POC-GLUCOSE METER 283 mg/dL 70-[address] [facility] 6720 (BEAKER) (test code = J[place]O [place] 1538) [address] CALCIUM, [id number] 07:03:00 Test Item Value Reference Range Interpretation Comments CALCIUM IONIZED (BEAKER) (test 1.02 mmol/L 1.12-1.27 L code = 698) PH, BLOOD (BEAKER) (test code = 7.43 1810) [id number] 05:28:00 Test Item Value Reference Range Interpretation Comments PHOSPHORUS (BEAKER) (test code = 3.3 mg/dL 2.3-4.7 604) [id number] 05:28:00 Test Item Value Reference Range Interpretation Comments MAGNESIUM (BEAKER) (test code = 1.5 mg/dL 1.6-2.6 L 627) BASIC METABOLIC [id number] 05:28:00 Test Item Value Reference Range Interpretation [...] PATIEN TS. CBC W/PLT COUNT & AUTO [id number] 05:06:00 Test Item Value Reference Range Interpretation [...] PERCENT (BEAKER) (test code = 2801) POCT-GLUCOSE [id number] 21:08:00 Test Item Value Reference Range Interpretation Comments POC-GLUCOSE METER 202 mg/dL 70-[address] [facility] 6720 (BEAKER) (test code = [facility] 1538) [address] POCT-GLUCOSE [id number] 16:50:00 Test Item Value Reference Range Interpretation Comments POC-GLUCOSE METER 287 mg/dL 70-[address] [facility] 6720 [facility] (test code = [facility] 1538) [address] POCT-GLUCOSE [id number] 12:21:00 Test Item Value Reference Range Interpretation Comments POC-GLUCOSE METER 213 mg/dL 70-[address] [facility] 6720 ([facility] (test code = [facility] 1538) [address] POCT-GLUCOSE [id number] 08:28:00 Test Item Value Reference Range Interpretation Comments POC-GLUCOSE METER 178 mg/dL 70-[address] [facility] 6720 ([facility] (test code = [facility] 1538) [address] CALCIUM, [id number] 07:06:00 Test Item Value Reference Range Interpretation Comments CALCIUM IONIZED (BEAKER) (test 0.99 mmol/L 1.12-1.27 L code = 698) PH, BLOOD (BEAKER) (test code = 7.42 1810) [id number] 05:37:00 Test Item Value Reference Range Interpretation Comments PHOSPHORUS (BEAKER) (test code = 3.5 mg/dL 2.3-4.7 604) [id number] 05:37:00 Test Item Value Reference Range Interpretation Comments MAGNESIUM (BEAKER) (test code = 1.6 mg/dL 1.6-2.6 627) BASIC METABOLIC [id number] 05:37:00 Test Item Value Reference Range Interpretation [...] PATIEN TS. CBC W/PLT COUNT & AUTO [id number] 05:07:00 Test Item Value Reference Range Interpretation [...] PERCENT (BEAKER) (test code = 2801) POCT-GLUCOSE [id number] 21:24:00 Test Item Value Reference Range Interpretation Comments POC-GLUCOSE METER 255 mg/dL 70-110 H TESTED AT [place] [address] ([facility]) (test code = [facility] [place] Dylon [facility] 1538) [address] POCT-GLUCOSE [id number] 17:11:00 Test Item Value Reference Range Interpretation Comments POC-GLUCOSE METER 244 mg/dL 70-110 H TESTED AT [place] [address] ([facility]) (test code = [facility] [place] D[place] [facility] 1538) [address] POCT-GLUCOSE [id number] 11:54:00 Test Item Value Reference Range Interpretation Comments POC-GLUCOSE METER 209 mg/dL 70-110 H TESTED AT [place] [address] ([facility]) (test code = [facility] [place] Dylon [facility] 1538) [address] POCT-GLUCOSE [id number] 08:15:00 Test Item Value Reference Range Interpretation Comments POC-GLUCOSE METER 132 mg/dL 70-110 H TESTED AT [place] [address] ([facility]) (test code = [facility] [place] Dylon [facility] 1538) [address] RAD, CHEST, 1 VIEW, NON [id number] 07:44:00Reason for exam:->edemaShould this be performed at the bedside?->YesFINAL REPORT Chest one view AP 08/07/2017 7:44 AM CLINICAL INDICATION: edema COMPARISON: 05/31/2017 IMPRESSION: Cardiomediastinal contours are stable. There is mild pulmonary edema,asymmetric to the right. There are trace bilateral pleural effusions, with bibasilar linear atelectasis. Sternotomy wires remain midline. Signed: Regan Cespedes Verified Date/Time: 08/07/2017 07:44:22 Reading Location: [facility] Radiology Reading Room [id number] 05:30:00 Test Item Value Reference Range Interpretation Comments FERRITIN (BEAKER) (test code = 361) 87 ng/mL 5-275 CBC W/PLT COUNT & AUTO [id number] 05:21:00 Test Item Value Reference Range Interpretation [...] % 20-55 L (test code = 2590) [id number] 05:11:00 Test Item Value Reference Range Interpretation Comments PHOSPHORUS (BEAKER) (test code = 3.6 mg/dL 2.3-4.7 604) [id number] 05:11:00 Test Item Value Reference Range Interpretation Comments MAGNESIUM (BEAKER) (test code = 2.0 mg/dL 1.6-2.6 627) BASIC METABOLIC [id number] 05:11:00 Test Item Value Reference Range Interpretation [...] H (BEAKER) (test code = 700) CALCIUM, [id number] 04:58:00 Test Item Value Reference Range Interpretation Comments CALCIUM IONIZED (BEAKER) (test 1.04 mmol/L 1.12-1.27 L code = 698) PH, BLOOD (BEAKER) (test code = 7.41 1810) RETICULOCYTE [id number] 04:51:00 Test Item Value Reference Range Interpretation Comments RETICULOCYTE COUNT PCT (BEAKER) (test 1.2 % 0.5-1.7 code = 575) POCT-GLUCOSE [id number] 20:49:00 Test Item Value Reference Range Interpretation Comments POC-GLUCOSE METER 202 mg/dL 70-[address] [facility] 6720 (BEAKER) (test code = JULIANO Osborne [facility] 1538) [address] CREATININE, RANDOM [id number] 18:38:00 Test Item Value Reference Range Interpretation Comments CREATININE URINE (BEAKER) (test 56.3 mg/dL code = 375) Reference Range: No NormalsPROTEIN, RANDOM [id number] 18:38:00 Test Item Value Reference Range Interpretation Comments PROTEIN, URINE (BEAKER) (test code 189 mg/dL 0-14 H = 1569) URINALYSIS W/ [id number] 18:34:00 Test Item Value Reference Range Interpretation [...] 516) SOURCE(BEAKER) (test code = Urine, Voided 3748) POCT-GLUCOSE [id number] 17:38:00 Test Item Value Reference Range Interpretation Comments POC-GLUCOSE METER 143 mg/dL 70-110 H TESTED AT [place] [address] (BEAKER) (test code = [place] 1538) [address] POCT-GLUCOSE [id number] 12:30:00 Test Item Value Reference Range Interpretation Comments POC-GLUCOSE METER 218 mg/dL 70-110 H TESTED AT [place] [address] (BEAKER) (test code = [place] 1538) [address] POCT-GLUCOSE [id number] 08:00:00 Test Item Value Reference Range Interpretation Comments POC-GLUCOSE METER 134 mg/dL 70-110 H TESTED AT [place] [address] (BEAKER) (test code = [place] 1538) [address] CBC W/PLT COUNT & AUTO [id number] 04:23:00 Test Item Value Reference Range Interpretation [...] (BEAKER) (test code = 2801) BASIC METABOLIC [id number] 04:13:00 Test Item Value Reference Range Interpretation [...] S NOT APPLICABLE FOR DIALYSIS PATIEN TS. [id number] 04:10:00 Test Item Value Reference Range Interpretation Comments PHOSPHORUS (BEAKER) (test code = 4.9 mg/dL 2.3-4.7 H 604) [id number] 04:10:00 Test Item Value Reference Range Interpretation Comments MAGNESIUM (BEAKER) (test code = 1.4 mg/dL 1.6-2.6 L 627) [id number] 04:08:00 Test Item Value Reference Range Interpretation Comments FIBRINOGEN LEVEL (BEAKER) (test 548 mg/dl 225-434 H code = 658) [id number] 04:08:00 Test Item Value Reference Range Interpretation Comments PARTIAL THROMBOPLASTIN TIME 37.7 seconds 22.5-36.0 H (BEAKER) (test code = 760) PROTHROMBIN [id number] 04:07:00 Test Item Value Reference Range Interpretation Comments PROTIME (BEAKER) (test code = 16.2 seconds 11.7-14.7 H 759) INR (BEAKER) (test code = 370) 1.3 <=5.9 RECOMMENDED COUMADIN/WARFARIN INR THERAPY RANGESSTANDARD DOSE: 2.0 - 3.0 Includes: PROPHYLAXIS forvenous thrombosis, systemic embolization; TREATMENT for venous thrombosis and/or pulmonary embolus.HIGH RISK: Target INR is 2.5-3.5 for patients with mechanical heart valves.[id number] 16:59:00 Test Item Value Reference Range Interpretation Comments ACTIVATED CLOTTING TIME 219 sec TEST ED AT [place] [address] ([facility]) (test code = JULIANO Osborne [place] 441) [address] BASIC METABOLIC [id number] 14:25:00 Test Item Value Reference Range Interpretation [...] NOT APPLICABLE FOR DIALYSIS PATIEN TS. POCT-GLUCOSE [id number] 13:21:00 Test Item Value Reference Range Interpretation Comments POC-GLUCOSE METER 170 mg/dL 70-110 H TESTED AT [place] [address] ([facility]) (test code = JULIANO Osborne [place] 1538) [address] POTASSIUM-STAT [id number] 13:20:00 Test Item Value Reference Range Interpretation Comments POTASSIUM (BEAKER) (test code = 4.2 meq/L 3.6-5.5 379) SODIUM NA-STAT [id number] 13:20:00 Test Item Value Reference Range Interpretation Comments SODIUM (BEAKER) (test code = 381) 133 meq/L 135-148 L HGB/HCT (H&H) - STAT [id number] 12:34:00 Test Item Value Reference Range Interpretation Comments HEMOGLOBIN (BEAKER) (test code = 10.8 g/dL 12.0-15.0 L 410) HEMATOCRIT (BEAKER) (test code = 32.0 % 36.0-45.0 L 411) POTASSIUM-STAT [id number] 08:15:00 Test Item Value Reference Range Interpretation Comments POTASSIUM (BEAKER) (test code = 4.1 meq/L 3.6-5.5 379) BLOOD GAS, [id number] 08:15:00 Test Item Value Reference Range Interpretation [...] code = 1819) 70.0 % SODIUM NA-STAT [id number] 08:15:00 Test Item Value Reference Range Interpretation Comments SODIUM (BEAKER) (test code = 381) 130 meq/L 135-148 L GLUCOSE-STAT [id number] 08:15:00 Test Item Value Reference Range Interpretation Comments GLUCOSE RANDOM (BEAKER) (test code 172 mg/dL 70-110 H = 652) HGB/HCT (H&H) - STAT [id number] 08:15:00 Test Item Value Reference Range Interpretation Comments HEMOGLOBIN (BEAKER) (test code = 8.8 g/dL 12.0-15.0 L 410) HEMATOCRIT (BEAKER) (test code = 26.0 % 36.0-45.0 L 411) BASIC METABOLIC [id number] 07:37:00 Test Item Value Reference Range Interpretation [...] PATIEN TS. CBC W/PLT COUNT & AUTO [id number] 07:20:00 Test Item Value Reference Range Interpretation [...] % 0-1 PERCENT (BEAKER) (test code = 9912) POCT-GLUCOSE [id number] 07:03:00 Test Item Value Reference Range Interpretation Comments POC-GLUCOSE METER 186 mg/dL 70-[address] [facility] 6720 (BEAKER) (test code = [place] 1538) [address] B-TYPE NATRIURETIC FACTOR (BNP)2017-06-10 12:44:00 Test Item Value Reference Range Interpretation Comments B-TYPE NATRIURETIC PEPTIDE 1264 pg/mL 0-100 H (BEAKER) (test code = 700) [id number] 12:36:00 Test Item Value Reference Range Interpretation Comments MAGNESIUM (BEAKER) (test code = 1.6 mg/dL 1.6-2.6 627) BASIC METABOLIC [id number] 12:36:00 Test Item Value Reference Range Interpretation [...] NOT APPLICABLE FOR DIALYSIS PATIEN TS. POCT-GLUCOSE [id number] 12:04:00 Test Item Value Reference Range Interpretation Comments POC-GLUCOSE METER 274 mg/dL 70-[address] [facility] 6720 ([facility] (test code = [facility] 1538) [address] POCT-GLUCOSE [id number] 07:21:00 Test Item Value Reference Range Interpretation Comments POC-GLUCOSE METER 137 mg/dL 70-110 H TESTED AT [place] [id number] ([facility]) (test code = [facility] 1538) [address] BASIC METABOLIC [id number] 05:10:00 Test Item Value Reference Range Interpretation [...] 0-0 (BEAKER) (test code = 413) POCT-GLUCOSE [id number] 21:23:00 Test Item Value Reference Range Interpretation Comments POC-GLUCOSE METER 240 mg/dL 70-110 H TESTED AT [place] [address] ([facility]) (test code = JULIANO Osborne [place] 1538) [address] POCT-GLUCOSE [id number] 16:42:00 Test Item Value Reference Range Interpretation Comments POC-GLUCOSE METER 234 mg/dL 70-[address] [facility] 6720 ([facility] (test code = JULIANO [place]borne [place] 1538) [address] POCT-GLUCOSE [id number] 13:22:00 Test Item Value Reference Range Interpretation Comments POC-GLUCOSE METER 166 mg/dL 70-[address] [facility] 6720 ([facility]) (test code = JULIANO Osborne [facility] 1538) [address] RAD, CHEST, 1 VIEW, NON [id number] 09:43:00Reason for exam:->s/p ACBShould this be performed [...] Lynda Ringeport Verified Date/Time: 05/31/2017 09:43:30 ReadingLocation: [facility] B1 C013X Ortho Consult Reading Room POCT-GLUCOSE [id number] 06:57:00 Test Item Value Reference Range Interpretation Comments POC-GLUCOSE METER 136 mg/dL 70-[address] [facility] 6720 ([facility]) (test code = JULIANO Osborne [facility] 1538) [address] CALCIUM, [id number] 06:41:00 Test Item Value Reference Range Interpretation Comments CALCIUM IONIZED (BEAKER) (test 1.10 mmol/L 1.12-1.27 L code = 698) PH, BLOOD (BEAKER) (test code = 7.42 1810) [id number] 06:17:00 Test Item Value Reference Range Interpretation Comments PHOSPHORUS (BEAKER) (test code = 3.3 mg/dL 2.3-4.7 604) [id number] 06:17:00 Test Item Value Reference Range Interpretation Comments MAGNESIUM (BEAKER) (test code = 1.8 mg/dL 1.6-2.6 627) BASIC METABOLIC [id number] 06:17:00 Test Item Value Reference Range Interpretation [...] PATIEN TS. CBC W/PLT COUNT & AUTO [id number] 05:07:00 Test Item Value Reference Range Interpretation [...] PERCENT (BEAKER) (test code = 2801) POCT-GLUCOSE [id number] 20:56:00 Test Item Value Reference Range Interpretation Comments POC-GLUCOSE METER 196 mg/dL 70-[address] [facility] 67 ([facility]) (test code = [facility] 1538) [address] POCT-GLUCOSE [id number] 16:42:00 Test Item Value Reference Range Interpretation Comments POC-GLUCOSE METER 196 mg/dL 70-110 H TESTED AT [place] [address] ([facility]) (test code = [facility] 1538) [address] POCT-GLUCOSE [id number] 11:45:00 Test Item Value Reference Range Interpretation Comments POC-GLUCOSE METER 215 mg/dL 70-110 H TESTED AT [place] [address] ([facility]) (test code = [facility] 1538) [address] RAD, CHEST, 1 VIEW, NON [id number] 11:15:00Reason for exam:->s/p ACBShould this be performed at the bedside?->YesFINAL REPORT Chest one view compared to May 28, 2017 Discussion: Airspace opacities are seen in both lower lung regions, probably atelectasis. Correlate clinically for infection. I could not exclude small effusions. No pneumothorax. Upper lungs clear. Signed: Jeannette Nava MDReport Verified Date/Time: 05/30/2017 11:15:07 Reading Location: [facility] Radiology Reading Room CALCIUM, [id number] 09:21:00 Test Item Value Reference Range Interpretation Comments CALCIUM IONIZED (BEAKER) (test 1.11 mmol/L 1.12-1.27 L code = 698) PH, BLOOD (BEAKER) (test code = 7.36 1810) BASIC METABOLIC [id number] 07:37:00 Test Item Value Reference Range Interpretation [...] S NOT APPLICABLE FOR DIALYSIS PATIEN TS. [id number] 07:28:00 Test Item Value Reference Range Interpretation Comments PHOSPHORUS (BEAKER) (test code = 3.8 mg/dL 2.3-4.7 604) [id number] 07:28:00 Test Item Value Reference Range Interpretation Comments MAGNESIUM (BEAKER) (test code = 1.9 mg/dL 1.6-2.6 627) CBC W/PLT COUNT & AUTO [id number] 07:26:00 Test Item Value Reference Range Interpretation [...] PERCENT (BEAKER) (test code = 2801) POCT-GLUCOSE [id number] 07:21:00 Test Item Value Reference Range Interpretation Comments POC-GLUCOSE METER 146 mg/dL 70-110 H TESTED AT [place] [address] ([facility]) (test code = [facility] 1538) [address] POCT-GLUCOSE [id number] 22:02:00 Test Item Value Reference Range Interpretation Comments POC-GLUCOSE METER 201 mg/dL 70-110 H TESTED AT [place] [address] ([facility]) (test code = [facility] 1538) [address] POCT-GLUCOSE [id number] 18:27:00 Test Item Value Reference Range Interpretation Comments POC-GLUCOSE METER 240 mg/dL 70-110 H TESTED AT [place] [address] ([facility]) (test code = [facility] 1538) [address] POCT-GLUCOSE [id number] 12:13:00 Test Item Value Reference Range Interpretation Comments POC-GLUCOSE METER 193 mg/dL 70-110 H TESTED AT [place] [address] ([facility]) (test code = [facility] 1538) [address] POCT-GLUCOSE [id number] 09:02:00 Test Item Value Reference Range Interpretation Comments POC-GLUCOSE METER 132 mg/dL 70-110 H TESTED AT [place] [address] ([facility]) (test code = [facility] 1538) [address] CALCIUM, [id number] 05:42:00 Test Item Value Reference Range Interpretation Comments CALCIUM IONIZED ([facility]) (test 1.12 mmol/L 1.12-1.27 code = 698) PH, BLOOD ([facility]) (test code = 7.34 1810) COMPREHENSIVE METABOLIC [id number] 05:33:00 Test Item Value Reference Range Interpretation Comments TOTAL PROTEIN 5.9 gm/dL 6.0-8.3 L ([facility]) (test code = 770) ALBUMIN ([facility]) 2.7 g/dL 3.5-5.0 L (test code = 1145) ALKALINE PHOSPHATASE 130 U/L 40-150 ([facility]) (test code = 346) BILIRUBIN TOTAL 0.3 mg/dL 0.2-1.2 ([facility]) (test code = 377) SODIUM ([facility]) (test 135 meq/L 136-145 L code = [...] S NOT APPLICABLE FOR DIALYSIS PATIEN TS. [id number] 05:32:00 Test Item Value Reference Range Interpretation Comments PHOSPHORUS (BEAKER) (test code = 3.6 mg/dL 2.3-4.7 604) [id number] 05:32:00 Test Item Value Reference Range Interpretation Comments MAGNESIUM (BEAKER) (test code = 2.2 mg/dL 1.6-2.6 627) CBC W/PLT COUNT & AUTO [id number] 05:01:00 Test Item Value Reference Range Interpretation [...] PERCENT (BEAKER) (test code = 2801) POCT-GLUCOSE [id number] 21:04:00 Test Item Value Reference Range Interpretation Comments POC-GLUCOSE METER 165 mg/dL 70-[address] [facility] 6720 [facility] (test code = JULIANO Osborne [facility] 1538) [address] POCT-GLUCOSE [id number] 17:30:00 Test Item Value Reference Range Interpretation Comments POC-GLUCOSE METER 236 mg/dL 70-[address] [facility] 6720 ([facility] (test code = JULIANO Osborne [facility] 1538) [address] RAD, CHEST, 1 VIEW, NON [id number] 13:53:00Reason for exam:->assess for ill-defined opacityShould this [...] Roach Verified Date/Time: 05/28/2017 13:53:03 Reading Location: [address] Radiology Reading Room POCT-GLUCOSE [id number] 11:53:00 Test Item Value Reference Range Interpretation Comments POC-GLUCOSE METER 215 mg/dL 70-[address] [facility] 6720 ([facility] (test code = JULIANO Osborne [facility] 1538) [address] POCT-GLUCOSE [id number] 08:32:00 Test Item Value Reference Range Interpretation Comments POC-GLUCOSE METER 168 mg/dL 70-[address] [facility] 6720 ([facility] (test code = JULIANO Osborne [facility] 1538) [address] CALCIUM, [id number] 05:44:00 Test Item Value Reference Range Interpretation Comments CALCIUM IONIZED (BEAKER) (test 1.09 mmol/L 1.12-1.27 L code = 698) PH, BLOOD (BEAKER) (test code = 7.38 1810) [id number] 05:44:00 Test Item Value Reference Range Interpretation Comments PHOSPHORUS (BEAKER) (test code = 3.5 mg/dL 2.3-4.7 604) [id number] 05:44:00 Test Item Value Reference Range Interpretation Comments MAGNESIUM (BEAKER) (test code = 1.9 mg/dL 1.6-2.6 627) BASIC METABOLIC [id number] 05:44:00 Test Item Value Reference Range Interpretation [...] PATIEN TS. CBC W/PLT COUNT & AUTO [id number] 05:05:00 Test Item Value Reference Range Interpretation [...] PERCENT (BEAKER) (test code = 2801) POCT-GLUCOSE [id number] 21:03:00 Test Item Value Reference Range Interpretation Comments POC-GLUCOSE METER 173 mg/dL 70-110 H TESTED AT [place] [address] ([facility]) (test code = [facility] 1538) [id number] 18:15:00 Test Item Value Reference Range Interpretation Comments ACTIVATED CLOTTING TIME 147 sec TEST ED AT [place] [address] ([facility]) (test code = [facility] 441) [id number] 18:15:00 Test Item Value Reference Range Interpretation Comments ACTIVATED CLOTTING TIME 246 sec TEST ED AT [place] [address] ([facility]) (test code = [facility] 441) [id number] POCT-GLUCOSE [id number] 12:39:00 Test Item Value Reference Range Interpretation Comments POC-GLUCOSE METER 219 mg/dL 70-110 H TESTED AT [place] [address] ([facility]) (test code = [facility] 1538) [address] RAD, CHEST, 1 VIEW, NON [id number] 10:11:00Reason for exam:->pl effusionShould this be performed at the bedside?->YesFINAL REPORT Chest one view compared to May 26 Discussion: There is cardiac prominence. Upper lungs are clear. Ill-defined basilar densities are similar probably atelectasis. No gross effusion or pneumothorax with bilateral chest tubes in place. Signed: Jeannette Navaeport Verified Date/Time: 05/27/2017 10:11:44 Reading Location: [facility] Radiology Reading Room POCT-GLUCOSE METER 2017-05-27 07:05:00 Test Item Value Reference Range Interpretation Comments POC-GLUCOSE METER 167 mg/dL 70-[address] [facility] 6720 (BEAKER) (test code = JULIANO RUTH [place] 1538) [address] CALCIUM, [id number] 06:20:00 Test Item Value Reference Range Interpretation Comments CALCIUM IONIZED (BEAKER) (test 0.98 mmol/L 1.12-1.27 L code = 698) PH, BLOOD (BEAKER) (test code = 7.50 1810) [id number] 04:56:00 Test Item Value Reference Range Interpretation Comments PHOSPHORUS (BEAKER) (test code = 2.6 mg/dL 2.3-4.7 604) [id number] 04:56:00 Test Item Value Reference Range Interpretation Comments MAGNESIUM (BEAKER) (test code = 2.0 mg/dL 1.6-2.6 627) BASIC METABOLIC [id number] 04:56:00 Test Item Value Reference Range Interpretation [...] PATIEN TS. CBC W/PLT COUNT & AUTO [id number] 04:36:00 Test Item Value Reference Range Interpretation [...] PERCENT (AKER) (test code = 2801) POCT-GLUCOSE [id number] 21:29:00 Test Item Value Reference Range Interpretation Comments POC-GLUCOSE METER 147 mg/dL 70-110 H TESTED AT [place] [address] ([facility]) (test code = [facility] 1538) [address] POCT-GLUCOSE [id number] 17:51:00 Test Item Value Reference Range Interpretation Comments POC-GLUCOSE METER 224 mg/dL 70-110 H TESTED AT [place] [address] ([facility]) (test code = [facility] 1538) [address] POCT-GLUCOSE [id number] 13:53:00 Test Item Value Reference Range Interpretation Comments POC-GLUCOSE METER 182 mg/dL 70-110 H TESTED AT [place] [address] ([facility]) (test code = [facility] 1538) [address] RAD, CHEST, 1 VIEW, NON [id number] 08:44:00Reason for exam:->pl effusionShould this be performed [...] MDReport Verified Date/Time: 05/26/2017 08:44:25 Reading Location: [address] Radiology Reading Room POCT- GLUCOSE [id number] 07:43:00 Test Item Value Reference Range Interpretation Comments POC-GLUCOSE METER 113 mg/dL 70-[address] [facility] 6720 (BEAKER) (test code = [place]O [place] 1538) [address] CALCIUM, [id number] 06:31:00 Test Item Value Reference Range Interpretation Comments CALCIUM IONIZED (BEAKER) (test 1.07 mmol/L 1.12-1.27 L code = 698) PH, BLOOD (BEAKER) (test code = 7.38 1810) [id number] 04:51:00 Test Item Value Reference Range Interpretation Comments PHOSPHORUS (BEAKER) (test code = 3.2 mg/dL 2.3-4.7 604) [id number] 04:51:00 Test Item Value Reference Range Interpretation Comments MAGNESIUM (BEAKER) (test code = 2.1 mg/dL 1.6-2.6 627) BASIC METABOLIC [id number] 04:51:00 Test Item Value Reference Range Interpretation [...] PATIEN TS. CBC W/PLT COUNT & AUTO [id number] 04:27:00 Test Item Value Reference Range Interpretation [...] PERCENT (BEAKER) (test code = 2801) POCT-GLUCOSE [id number] 23:48:00 Test Item Value Reference Range Interpretation Comments POC-GLUCOSE METER 123 mg/dL 70-[address] [facility] 6720 (BEAKER) (test code = JULIANO Osborne [place] 1538) [address] POCT-GLUCOSE [id number] 16:46:00 Test Item Value Reference Range Interpretation Comments POC-GLUCOSE METER 178 mg/dL 70-[address] [facility] 6720 (BEAKER) (test code = JULIANO Osborne [place] 1538) [address] BASIC METABOLIC [id number] 05:53:00 Test Item Value Reference Range Interpretation [...] S NOT APPLICABLE FOR DIALYSIS PATIEN TS. [id number] 05:52:00 Test Item Value Reference Range Interpretation Comments PHOSPHORUS (BEAKER) (test code = 4.2 mg/dL 2.3-4.7 604) [id number] 05:52:00 Test Item Value Reference Range Interpretation Comments MAGNESIUM (BEAKER) (test code = 2.3 mg/dL 1.6-2.6 627) CALCIUM, [id number] 05:27:00 Test Item Value Reference Range Interpretation Comments CALCIUM IONIZED (BEAKER) (test 1.12 mmol/L 1.12-1.27 code = 698) PH, BLOOD (BEAKER) (test code = 7.38 1810) CBC W/PLT COUNT & AUTO [id number] 05:07:00 Test Item Value Reference Range Interpretation [...] = 2801) RAD, CHEST, 1 VIEW, NON [id number] 04:45:00Reason for exam:->pl effusionShould this be performed at the bedside?->YesFINAL REPORT RAD, CHEST, 1 VIEW, NON DEPT INDICATION: pl effusion COMPARISON:Prior day's exam FINDINGS: Portable frontal view of the chest. IMPRESSION: Support Lines: Stable.Lungs and pleura: Unchanged airspace and pleural opacities. No pneumothorax.Heart and mediastinum: Stable contours. Stable surgical changes.Additional findings: None. Signed: JR Boswell Robert MDReport Verified Date/Time: 05/25/2017 04:45:08 Reading Location: [address] Body Reading Room POCT-GLUCOSE [id number] 01:52:00 Test Item Value Reference Range Interpretation Comments POC-GLUCOSE METER 126 mg/dL 70-110 H TESTED AT [place] [address] ([facility]) (test code = JULIANO Osborne [facility] 1538) [address] POCT-GLUCOSE [id number] 13:07:00 Test Item Value Reference Range Interpretation Comments POC-GLUCOSE METER 118 mg/dL 70-[address] [facility] 6720 ([facility]) (test code = JULIANO Osborne [facility] 1538) [address] BRONCHIAL CULTURE + GRAM [id number] 11:35:00 Test Item Value Reference Range Interpretation Comments CULTURE ([facility]) (test code = 1095) Amikacin (test [...] <1+ gram (BEAKER) (test code = positive 332541) cocci in pairs GRAM STAIN RESULT 1+ gram (BEAKER) (test code = variable rods 047878) 1+ Normal respiratory todd presentRAD, CHEST, 1 VIEW, NON [id number] 06:50:00Reason for exam:->pl effusionShould this be performed at the bedside?->YesFINAL REPORT RAD, CHEST, 1 VIEW, NON DEPT INDICATION: pl effusion COMPARISON:Prior day's exam FINDINGS: Portable frontal view of the chest. IMPRESSION: Support Lines: Stable.Lungs and pleura: Unchanged airspace and pleural opacities. No pneumothorax.Heart and mediastinum: Stable contours. Stable surgical changes.Additional findings: None. Signed: JR Boswell Robert MDReport Verified Date/Time: 05/24/2017 06:50:08 Reading Location: [facility] C013Y CT Body Reading Room BASIC METABOLIC [id number] 04:19:00 Test Item Value Reference Range Interpretation [...] NOT APPLICABLE FOR DIALYSIS PATIEN TS. CALCIUM, [id number] 04:16:00 Test Item Value Reference Range Interpretation Comments CALCIUM IONIZED (BEAKER) (test 1.06 mmol/L 1.12-1.27 L code = 698) PH, BLOOD (BEAKER) (test code = 7.40 1810) [id number] 04:11:00 Test Item Value Reference Range Interpretation Comments PHOSPHORUS (BEAKER) (test code = 6.0 mg/dL 2.3-4.7 H 604) [id number] 04:11:00 Test Item Value Reference Range Interpretation Comments MAGNESIUM (BEAKER) (test code = 2.4 mg/dL 1.6-2.6 627) CBC W/PLT COUNT & AUTO [id number] 03:50:00 Test Item Value Reference Range Interpretation [...] PERCENT (BEAKER) (test code = 2801) POCT-GLUCOSE [id number] 20:45:00 Test Item Value Reference Range Interpretation Comments POC-GLUCOSE METER 143 mg/dL 70-[address] [facility] 6720 (BEAKER) (test code = JULIANO REYEZ 1538) [address] POCT-GLUCOSE [id number] 20:45:00 Test Item Value Reference Range Interpretation Comments POC-GLUCOSE METER 145 mg/dL 70-[address] [facility] 6720 (BEAKER) (test code = [place]O [place] 1539) [address] [id number] 13:37:00 Test Item Value Reference Range Interpretation Comments PREALBUMIN (BEAKER) 10 mg/dL 14-45 L Specimen slightly (test code = 586) hemolyzed OXYGEN SATURATION, [id number] 12:31:00 Test Item Value Reference Range Interpretation Comments O2 SATURATION (MEASURED) (BEAKER) 94.5 % (test code = 1455) [id number] 11:02:00 Test Item Value Reference Range Interpretation Comments PREALBUMIN (BEAKER) (test code = 10 mg/dL 14-45 L 586) RAD, CHEST, 1 VIEW, NON [id number] 05:14:00while patient is intubated or has chest [...] MDReport Verified Date/Time: 05/23/2017 05:14:04 Reading Location: [facility] C013Y CT Body Reading Room BASIC METABOLIC [id number] 03:48:00 Test Item Value Reference Range Interpretation [...] S NOT APPLICABLE FOR DIALYSIS PATIEN TS. [id number] 03:46:00 Test Item Value Reference Range Interpretation Comments MAGNESIUM (BEAKER) 2.4 mg/dL 1.6-2.6 Specimen slightly (test code = 627) hemolyzed [id number] 03:46:00 Test Item Value Reference Range Interpretation Comments PHOSPHORUS (BEAKER) 6.5 mg/dL 2.3-4.7 H Specimen slightly (test code = 604) hemolyzed CBC W/PLT COUNT & AUTO [id number] 03:26:00 Test Item Value Reference Range Interpretation [...] (BEAKER) (test code = 2801) BLOOD GAS, [id number] 03:18:00 Test Item Value Reference Range Interpretation [...] (test code = 1819) 36.0 % CALCIUM, [id number] 16:32:00 Test Item Value Reference Range Interpretation Comments CALCIUM IONIZED (BEAKER) (test 1.11 mmol/L 1.12-1.27 L code = 698) PH, BLOOD (BEAKER) (test code = 7.39 1810) BASIC METABOLIC [id number] 15:43:00 Test Item Value Reference Range Interpretation [...] NOT APPLICABLE FOR DIALYSIS PATIEN TS. POCT-GLUCOSE [id number] 12:53:00 Test Item Value Reference Range Interpretation Comments POC-GLUCOSE METER 118 mg/dL 70-[address] [facility] 6720 (BEAKER) (test code = [place] 1538) [address] BLOOD GAS, [id number] 10:42:00 Test Item Value Reference Range Interpretation [...] (test code = 1819) 40.0 % POCT-GLUCOSE [id number] 06:46:00 Test Item Value Reference Range Interpretation Comments POC-GLUCOSE METER 106 mg/dL 70-[address] [facility] 6720 (BEAKER) (test code = [place]O [place] 1538) [address] RAD, CHEST, 1 VIEW, NON [id number] 05:05:00while patient is intubated or has chest [...] [place] Verified Date/Time: 05/22/2017 05:05:00 Reading Location: [address] Body ReadingRoom BASIC METABOLIC [id number] 05:00:00 Test Item Value Reference Range Interpretation [...] S NOT APPLICABLE FOR DIALYSIS PATIEN TS. [id number] 04:41:00 Test Item Value Reference Range Interpretation Comments PHOSPHORUS (BEAKER) (test code = 6.4 mg/dL 2.3-4.7 H 604) [id number] 04:41:00 Test Item Value Reference Range Interpretation Comments MAGNESIUM (BEAKER) (test code = 2.6 mg/dL 1.6-2.6 627) CALCIUM, [id number] 04:26:00 Test Item Value Reference Range Interpretation Comments CALCIUM IONIZED (BEAKER) (test 1.09 mmol/L 1.12-1.27 L code = 698) PH, BLOOD (BEAKER) (test code = 7.40 1810) OXYGEN SATURATION, [id number] 04:25:00 Test Item Value Reference Range Interpretation Comments O2 SATURATION (MEASURED) (BEAKER) 77.0 % (test code = 1455) CBC W/PLT COUNT & AUTO [id number] 04:17:00 Test Item Value Reference Range Interpretation [...] 0-1 PERCENT (BEAKER) (test code = 2807) LACTIC ACID, ARTERIAL, WHOLE [id number] 00:07:00 Test Item Value Reference Range Interpretation Comments LACTATE BLOOD 1.0 mmol/L 0.5-2.2 Specimen sligh tly ARTERIAL (2) (BEAKER) hemoly zed (test code = 2874) Effective 08/02/2015: Units/Reference Range ChangeNew: 0.5-2.2 mmol/L Previous: 5-20 mg/dLPOCT-GLUCOSE [id number] 23:47:00 Test Item Value Reference Range Interpretation Comments POC-GLUCOSE METER 180 mg/dL 70-[address] [facility] 6720 (BEAKER) (test code = JULIANO REYE[place] 1538) [address] BLOOD GAS, [id number] 23:46:00 Test Item Value Reference Range Interpretation [...] code = 1819) 100.0 % SODIUM NA-STAT [id number] 23:46:00 Test Item Value Reference Range Interpretation Comments SODIUM (BEAKER) (test code = 381) 134 meq/L 135-148 L GLUCOSE-STAT [id number] 23:46:00 Test Item Value Reference Range Interpretation Comments GLUCOSE RANDOM (BEAKER) (test code 119 mg/dL 70-110 H = 652) HGB/HCT (H&H) - STAT [id number] 23:46:00 Test Item Value Reference Range Interpretation Comments HEMOGLOBIN (BEAKER) (test code = 8.8 g/dL 12.0-15.0 L 410) HEMATOCRIT (BEAKER) (test code = 26.0 % 36.0-45.0 L 411) OXYGEN SATURATION, [id number] 23:45:00 Test Item Value Reference Range Interpretation Comments O2 SATURATION (MEASURED) (BEAKER) 68.1 % (test code = 1455) POTASSIUM-STAT [id number] 23:45:00 Test Item Value Reference Range Interpretation Comments POTASSIUM (BEAKER) (test code = 5.5 meq/L 3.6-5.5 379) POCT-GLUCOSE [id number] 20:58:00 Test Item Value Reference Range Interpretation Comments POC-GLUCOSE METER 133 mg/dL 70-[address] [facility] 6720 [facility] (test code = [place]O [place] 1538) [address] POCT-GLUCOSE [id number] 17:58:00 Test Item Value Reference Range Interpretation Comments POC-GLUCOSE METER 210 mg/dL 70-[address] [facility] 6720 ([facility] (test code = JULIANO Osborne [facility] 1538) [address] POCT-GLUCOSE [id number] 17:58:00 Test Item Value Reference Range Interpretation Comments POC-GLUCOSE METER 211 mg/dL 70-110 H TESTED AT [place] [address] ([facility] (test code = JULIANO Osborne [place] 1538) [address] POCT-GLUCOSE [id number] 17:58:00 Test Item Value Reference Range Interpretation Comments POC-GLUCOSE METER 232 mg/dL 70-110 H TESTED AT [place] [address] (BEAKER) (test code = JULIANO Osborne [place] 1538) [address] POCT-GLUCOSE [id number] 17:58:00 Test Item Value Reference Range Interpretation Comments POC-GLUCOSE METER 262 mg/dL 70-110 H TESTED AT [place] [address] (BEAKER) (test code = JULIANO Osborne [facility] 1538) [address] BLOOD GAS, [id number] 17:01:00 Test Item Value Reference Range Interpretation [...] (test code = 1819) 60.0 % POTASSIUM-STAT [id number] 17:00:00 Test Item Value Reference Range Interpretation Comments POTASSIUM (BEAKER) (test code = 4.8 meq/L 3.6-5.5 379) POCT-GLUCOSE [id number] 15:52:00 Test Item Value Reference Range Interpretation Comments POC-GLUCOSE METER 267 mg/dL 70-110 H TESTED AT [place] [address] (BEAKER) (test code = JULIANO Osborne [place] 1538) [address] POCT-GLUCOSE [id number] 14:42:00 Test Item Value Reference Range Interpretation Comments POC-GLUCOSE METER 231 mg/dL 70-110 H TESTED AT [facility] 6720 (BEAKER) (test code = [place] 1538) [address] BODY FLUID CELL COUNT WITH [id number] 14:41:00 Test Item Value Reference Range Interpretation [...] Tube (test code = 2873) BASIC METABOLIC [id number] 14:11:00 Test Item Value Reference Range Interpretation [...] S NOT APPLICABLE FOR DIALYSIS PATIEN TS. [id number] 14:08:00 Test Item Value Reference Range Interpretation Comments PHOSPHORUS (BEAKER) (test code = 7.2 mg/dL 2.3-4.7 H 604) [id number] 14:08:00 Test Item Value Reference Range Interpretation Comments MAGNESIUM (BEAKER) (test code = 2.6 mg/dL 1.6-2.6 627) POCT-GLUCOSE [id number] 12:49:00 Test Item Value Reference Range Interpretation Comments POC-GLUCOSE METER 224 mg/dL 70-[address] [facility] 67 (ROBERT) (test code = JULIANO Osborne [facility] 1538) [address] POCT-GLUCOSE [id number] 12:49:00 Test Item Value Reference Range Interpretation Comments POC-GLUCOSE METER 248 mg/dL 70-110 H TESTED AT [place] [address] (ROBERT) (test code = JULIANO Osborne [facility] 1538) [address] RAD, CHEST, 1 VIEW, NON [id number] 12:32:00Reason for exam:->re-intubationShould this be performed at [...] pneumothorax is grossly unchanged. Signed: Mona White MDRepcapital region medical center Verified Date/Time: 05/21/2017 12:32:08 Reading Location: [facility] Radiology Reading Room POTASSIUM-STAT [id number] 12:28:00 Test Item Value Reference Range Interpretation Comments POTASSIUM (BEAKER) (test code = 5.5 meq/L 3.6-5.5 379) BLOOD GAS, [id number] 12:28:00 Test Item Value Reference Range Interpretation [...] code = 1819) 100.0 % BLOOD GAS, [id number] 10:53:00 Test Item Value Reference Range Interpretation [...] 36.0 % RAD, CHEST, 1 VIEW, NON [id number] 08:46:00while patient is intubated or has chest [...] 05/21/2017 08:46:27 Reading Location: [facility] Radiology Reading Room BLOOD GAS, [id number] 05:41:00 Test Item Value Reference Range Interpretation [...] (BEAKER) (test code = 1819) 40 CALCIUM, [id number] 04:35:00 Test Item Value Reference Range Interpretation Comments CALCIUM IONIZED (BEAKER) (test 1.13 mmol/L 1.12-1.27 code = 698) PH, BLOOD (BEAKER) (test code = 7.32 1810) BLOOD GAS, [id number] 04:28:00 Test Item Value Reference Range Interpretation [...] (BEAKER) (test code = 1819) 40.0 % [id number] 04:20:00 Test Item Value Reference Range Interpretation Comments PHOSPHORUS (BEAKER) (test code = 6.2 mg/dL 2.3-4.7 H 604) [id number] 04:20:00 Test Item Value Reference Range Interpretation Comments MAGNESIUM (BEAKER) (test code = 2.4 mg/dL 1.6-2.6 627) HEPATIC FUNCTION [id number] 04:20:00 Test Item Value Reference Range Interpretation [...] = 11 U/L 6-55 347) BASIC METABOLIC [id number] 04:20:00 Test Item Value Reference Range Interpretation [...] APPLICABLE FOR DIALYSIS PATIEN TS. OXYGEN SATURATION, [id number] 04:18:00 Test Item Value Reference Range Interpretation Comments O2 SATURATION (MEASURED) (BEAKER) 68.0 % (test code = 1455) LACTIC ACID, ARTERIAL, WHOLE [id number] 04:12:00 Test Item Value Reference Range Interpretation Comments LACTATE BLOOD ARTERIAL (2) 1.0 mmol/L 0.5-2.2 (BEAKER) (test code = 2874) Effective 08/02/2015: Units/Reference Range ChangeNew: 0.5-2.2 mmol/L Previous: 5-20 mg/dLCBC W/PLT COUNT & AUTO [id number] 04:00:00 Test Item Value Reference Range Interpretation [...] (BEAKER) (test code = 2801) BLOOD GAS, [id number] 00:06:00 Test Item Value Reference Range Interpretation [...] (BEAKER) (test code = 1819) 40.0 % [id number] 18:55:00 Test Item Value Reference Range Interpretation Comments PHOSPHORUS (BEAKER) (test code = 4.8 mg/dL 2.3-4.7 H 604) [id number] 18:55:00 Test Item Value Reference Range Interpretation Comments MAGNESIUM (BEAKER) (test code = 2.3 mg/dL 1.6-2.6 627) BASIC METABOLIC [id number] 18:55:00 Test Item Value Reference Range Interpretation [...] DIALYSIS PATIEN TS. LACTIC ACID, ARTERIAL, WHOLE [id number] 18:53:00 Test Item Value Reference Range Interpretation Comments LACTATE BLOOD 0.9 mmol/L 0.5-2.2 Specimen sligh tly ARTERIAL (2) (BEAKER) hemoly zed (test code = 2874) Effective 08/02/2015: Units/Reference Range ChangeNew: 0.5-2.2 mmol/L Previous: 5-20 mg/dLRAD, CHEST, 1 VIEW, NON [id number] 18:44:00Reason for exam:- >postop cardiacShould this be [...] MDReport Verified Date/Time: 05/20/2017 18:44:30 Reading Location: [facility] C013W Consult Reading Room Electronically signed by: MIGUEL BHAKTA M.D. on05/20/2017 06:44 PMCBC W/PLT COUNT & AUTO [id number] 18:38:00 Test Item Value Reference Range Interpretation [...] (BEAKER) (test code = 2801) OXYGEN SATURATION, [id number] 18:36:00 Test Item Value Reference Range Interpretation Comments O2 SATURATION (MEASURED) (BEAKER) 72.5 % (test code = 1455) From distal port of IJ central venous catheterSODIUM NA-STAT [id number] 18:30:00 Test Item Value Reference Range Interpretation Comments SODIUM (BEAKER) (test code = 381) 132 meq/L 135-148 L HGB/HCT (H&H) - STAT [id number] 18:30:00 Test Item Value Reference Range Interpretation Comments HEMOGLOBIN (BEAKER) (test code = 9.4 g/dL 12.0-15.0 L 410) HEMATOCRIT (BEAKER) (test code = 28.0 % 36.0-45.0 L 411) GLUCOSE-STAT [id number] 18:30:00 Test Item Value Reference Range Interpretation Comments GLUCOSE RANDOM (BEAKER) (test code 159 mg/dL 70-110 H = 652) BLOOD GAS, [id number] 18:30:00 Test Item Value Reference Range Interpretation [...] (test code = 1819) 60.0 % CALCIUM, [id number] 18:30:00 Test Item Value Reference Range Interpretation Comments CALCIUM IONIZED (BEAKER) (test 0.94 mmol/L 1.12-1.27 L code = 698) PH, BLOOD (BEAKER) (test code = 7.34 1810) POTASSIUM-STAT [id number] 18:28:00 Test Item Value Reference Range Interpretation [...] (test 0.0 % 0.0-5.0 code = 1414) [id number] 17:53:00 Test Item Value Reference Range Interpretation Comments ACTIVATED CLOTTING TIME 103 sec TEST ED AT [place] [address] (BEAKER) (test code = [place] 441) [address] [id number] 17:53:00 Test Item Value Reference Range Interpretation Comments ACTIVATED CLOTTING TIME 466 sec TEST ED AT [place] [address] (BEAKER) (test code = [place] 441) [address] [id number] 17:53:00 Test Item Value Reference Range Interpretation Comments ACTIVATED CLOTTING TIME 543 sec TEST ED AT [place] [address] ([facility]) (test code = [place] 441) [address] [id number] 17:53:00 Test Item Value Reference Range Interpretation Comments ACTIVATED CLOTTING TIME 549 sec TEST ED AT [place] [address] ([facility]) (test code = [place] 441) [address] [id number] 17:53:00 Test Item Value Reference Range Interpretation Comments ACTIVATED CLOTTING TIME 632 sec TEST ED AT [place] [address] ([facility]) (test code = [place] 441) [address] [id number] 17:53:00 Test Item Value Reference Range Interpretation Comments ACTIVATED CLOTTING TIME 494 sec TEST ED AT [place] [address] ([facility]) (test code = [place] 441) [address] [id number] 17:53:00 Test Item Value Reference Range Interpretation Comments ACTIVATED CLOTTING TIME 587 sec TEST ED AT [place] [address] ([facility]) (test code = [place] 441) [address] [id number] 17:53:00 Test Item Value Reference Range Interpretation Comments ACTIVATED CLOTTING TIME 626 sec TEST ED AT [place] [address] ([facility]) (test code = JULIANO Osborne [place] 441) [address] [id number] 17:52:00 Test Item Value Reference Range Interpretation Comments ACTIVATED CLOTTING TIME 808 sec TEST ED AT [place] [address] ([facility]) (test code = [place] 441) [address] [id number] 16:54:00 Test Item Value Reference Range Interpretation Comments PARTIAL THROMBOPLASTIN TIME 40.2 seconds 22.5-36.0 H ([facility]) (test code = 760) [id number] 16:53:00 Test Item Value Reference Range Interpretation Comments FIBRINOGEN LEVEL ([facility]) (test 306 mg/dl 225-434 code = 658) PROTHROMBIN [id number] 16:50:00 Test Item Value Reference Range Interpretation Comments PROTIME ([facility]) (test code = 19.6 seconds 11.7-14.7 H 759) INR ([facility]) (test code = 370) 1.7 <=5.9 RECOMMENDED COUMADIN/WARFARIN INR THERAPY RANGESSTANDARD DOSE: 2.0 - 3.0 Includes: PROPHYLAXIS forvenous thrombosis, systemic embolization; TREATMENT for venous thrombosis and/or pulmonary embolus.HIGH RISK: Target INR is 2.5-3.5 for patients with mechanical heart valves.PLATELET [id number] 16:45:00 Test Item Value Reference Range Interpretation Comments PLATELET COUNT ([facility]) (test 136 K/CU MM 150-450 L code = 756) POTASSIUM-STAT [id number] 16:15:00 Test Item Value Reference Range Interpretation Comments POTASSIUM ([facility]) (test code = 4.9 meq/L 3.6-5.5 379) BLOOD GAS, [id number] 16:15:00 Test Item Value Reference Range Interpretation [...] code = 1819) 100.0 % SODIUM NA-STAT [id number] 16:15:00 Test Item Value Reference Range Interpretation Comments SODIUM ([facility]AK[facility]) (test code = 381) 131 meq/L 135-148 L GLUCOSE-STAT [id number] 16:15:00 Test Item Value Reference Range Interpretation Comments GLUCOSE RANDOM ([facility]) (test code 198 mg/dL 70-110 H = 652) HGB/HCT (H&H) - STAT [id number] 16:15:00 Test Item Value Reference Range Interpretation Comments HEMOGLOBIN ([facility]AKER) (test code = 7.5 g/dL 12.0-15.0 L 410) HEMATOCRIT ([facility]) (test code = 22.0 % 36.0-45.0 L 411) CALCIUM, [id number] 16:14:00 Test Item Value Reference Range Interpretation Comments CALCIUM IONIZED ([facility]) (test 0.91 mmol/L 1.12-1.27 L code = 698) PH, BLOOD (BEAKER) (test code = 7.39 1810) BLOOD GAS, [id number] 15:39:00 Test Item Value Reference Range Interpretation [...] code = 1819) 70.0 % SODIUM NA-STAT [id number] 15:39:00 Test Item Value Reference Range Interpretation Comments SODIUM (BEAKER) (test code = 381) 131 meq/L 135-148 L GLUCOSE-STAT [id number] 15:39:00 Test Item Value Reference Range Interpretation Comments GLUCOSE RANDOM (BEAKER) (test code 186 mg/dL 70-110 H = 652) HGB/HCT (H&H) - STAT [id number] 15:39:00 Test Item Value Reference Range Interpretation Comments HEMOGLOBIN (BEAKER) (test code = 7.5 g/dL 12.0-15.0 L 410) HEMATOCRIT (BEAKER) (test code = 22.0 % 36.0-45.0 L 411) POTASSIUM-STAT [id number] 15:38:00 Test Item Value Reference Range Interpretation Comments POTASSIUM (BEAKER) (test code = 5.3 meq/L 3.6-5.5 379) BLOOD GAS, [id number] 15:24:00 Test Item Value Reference Range Interpretation [...] code = 1819) 70.0 % SODIUM NA-STAT [id number] 15:24:00 Test Item Value Reference Range Interpretation Comments SODIUM (BEAKER) (test code = 381) 130 meq/L 135-148 L GLUCOSE-STAT [id number] 15:24:00 Test Item Value Reference Range Interpretation Comments GLUCOSE RANDOM (BEAKER) (test code 189 mg/dL 70-110 H = 652) HGB/HCT (H&H) - STAT [id number] 15:24:00 Test Item Value Reference Range Interpretation Comments HEMOGLOBIN (BEAKER) (test code = 6.7 g/dL 12.0-15.0 L 410) HEMATOCRIT (BEAKER) (test code = 20.0 % 36.0-45.0 L 411) POTASSIUM-STAT [id number] 15:23:00 Test Item Value Reference Range Interpretation Comments POTASSIUM (BEAKER) (test code = 5.4 meq/L 3.6-5.5 379) BLOOD GAS, [id number] 15:07:00 Test Item Value Reference Range Interpretation [...] code = 1819) 70.0 % SODIUM NA-STAT [id number] 15:07:00 Test Item Value Reference Range Interpretation Comments SODIUM (BEAKER) (test code = 381) 129 meq/L 135-148 L GLUCOSE-STAT [id number] 15:07:00 Test Item Value Reference Range Interpretation Comments GLUCOSE RANDOM (BEAKER) (test code 172 mg/dL 70-110 H = 652) HGB/HCT (H&H) - STAT [id number] 15:07:00 Test Item Value Reference Range Interpretation Comments HEMOGLOBIN (BEAKER) (test code = 7.1 g/dL 12.0-15.0 L 410) HEMATOCRIT (BEAKER) (test code = 21.0 % 36.0-45.0 L 411) POTASSIUM-STAT [id number] 15:04:00 Test Item Value Reference Range Interpretation Comments POTASSIUM (BEAKER) (test code = 5.0 meq/L 3.6-5.5 379) BLOOD GAS, [id number] 14:21:00 Test Item Value Reference Range Interpretation [...] code = 1819) 70.0 % SODIUM NA-STAT [id number] 14:21:00 Test Item Value Reference Range Interpretation Comments SODIUM (BEAKER) (test code = 381) 133 meq/L 135-148 L GLUCOSE-STAT [id number] 14:21:00 Test Item Value Reference Range Interpretation Comments GLUCOSE RANDOM (BEAKER) (test code 160 mg/dL 70-110 H = 652) HGB/HCT (H&H) - STAT [id number] 14:21:00 Test Item Value Reference Range Interpretation Comments HEMOGLOBIN (BEAKER) (test code = 7.5 g/dL 12.0-15.0 L 410) HEMATOCRIT (BEAKER) (test code = 22.0 % 36.0-45.0 L 411) POTASSIUM-STAT [id number] 14:20:00 Test Item Value Reference Range Interpretation Comments POTASSIUM (BEAKER) (test code = 4.7 meq/L 3.6-5.5 379) BLOOD GAS, [id number] 13:58:00 Test Item Value Reference Range Interpretation [...] code = 1819) 80.0 % SODIUM NA-STAT [id number] 13:58:00 Test Item Value Reference Range Interpretation Comments SODIUM (BEAKER) (test code = 381) 132 meq/L 135-148 L GLUCOSE-STAT [id number] 13:58:00 Test Item Value Reference Range Interpretation Comments GLUCOSE RANDOM (BEAKER) (test code 166 mg/dL 70-110 H = 652) HGB/HCT (H&H) - STAT [id number] 13:58:00 Test Item Value Reference Range Interpretation Comments HEMOGLOBIN (BEAKER) (test code = 7.5 g/dL 12.0-15.0 L 410) HEMATOCRIT (BEAKER) (test code = 22.0 % 36.0-45.0 L 411) POTASSIUM-STAT [id number] 13:57:00 Test Item Value Reference Range Interpretation Comments POTASSIUM (BEAKER) (test code = 4.7 meq/L 3.6-5.5 379) BLOOD GAS, [id number] 13:35:00 Test Item Value Reference Range Interpretation [...] (test code = 1819) 80.0 % GLUCOSE-STAT [id number] 13:35:00 Test Item Value Reference Range Interpretation Comments GLUCOSE RANDOM (BEAKER) (test code 130 mg/dL 70-110 H = 652) HGB/HCT (H&H) - STAT [id number] 13:35:00 Test Item Value Reference Range Interpretation Comments HEMOGLOBIN (BEAKER) (test code = 6.7 g/dL 12.0-15.0 L 410) HEMATOCRIT (BEAKER) (test code = 20.0 % 36.0-45.0 L 411) SODIUM NA-STAT [id number] 13:35:00 Test Item Value Reference Range Interpretation Comments SODIUM (BEAKER) (test code = 381) 133 meq/L 135-148 L POTASSIUM-STAT [id number] 13:34:00 Test Item Value Reference Range Interpretation Comments POTASSIUM (BEAKER) (test code = 4.2 meq/L 3.6-5.5 379) BLOOD GAS, [id number] 13:16:00 Test Item Value Reference Range Interpretation [...] code = 1819) 80.0 % SODIUM NA-STAT [id number] 13:16:00 Test Item Value Reference Range Interpretation Comments SODIUM (BEAKER) (test code = 381) 133 meq/L 135-148 L HGB/HCT (H&H) - STAT [id number] 13:16:00 Test Item Value Reference Range Interpretation Comments HEMOGLOBIN (BEAKER) (test code = 6.3 g/dL 12.0-15.0 L 410) HEMATOCRIT (BEAKER) (test code = 19.0 % 36.0-45.0 L 411) CALCIUM, [id number] 13:15:00 Test Item Value Reference Range Interpretation Comments CALCIUM IONIZED (BEAKER) (test 0.98 mmol/L 1.12-1.27 L code = 698) PH, BLOOD (BEAKER) (test code = 7.34 1810) BLOOD GAS, [id number] 13:15:00 Test Item Value Reference Range Interpretation [...] (test code = 1819) 80.0 % GLUCOSE-STAT [id number] 13:14:00 Test Item Value Reference Range Interpretation Comments GLUCOSE RANDOM (BEAKER) (test code = 92 mg/dL 70-110 652) POTASSIUM-STAT [id number] 13:14:00 Test Item Value Reference Range Interpretation Comments POTASSIUM (BEAKER) (test code = 3.9 meq/L 3.6-5.5 379) BLOOD GAS, [id number] 10:54:00 Test Item Value Reference Range Interpretation [...] 1819) 100.0 % HGB/HCT (H&H) - STAT [id number] 10:54:00 Test Item Value Reference Range Interpretation Comments HEMOGLOBIN (BEAKER) (test code = 9.3 g/dL 12.0-15.0 L 410) HEMATOCRIT (BEAKER) (test code = 27.0 % 36.0-45.0 L 411) SODIUM NA-STAT [id number] 10:54:00 Test Item Value Reference Range Interpretation Comments SODIUM (BEAKER) (test code = 381) 132 meq/L 135-148 L GLUCOSE-STAT [id number] 10:52:00 Test Item Value Reference Range Interpretation Comments GLUCOSE RANDOM (BEAKER) (test code = 94 mg/dL 70-110 652) POTASSIUM-STAT [id number] 10:52:00 Test Item Value Reference Range Interpretation Comments POTASSIUM (BEAKER) (test code = 4.0 meq/L 3.6-5.5 379) HEMOGLOBIN [id number] 09:50:00 Test Item Value Reference Range Interpretation Comments HEMOGLOBIN A1C (BEAKER) (test code = 10.6 % 4.3-6.1 H 368) PLATELET AGGREGATION: FUNCTION [id number] 08:27:00 Test Item Value Reference Range Interpretation Comments WEAK ADP 63 % 60-91 RESULT(BEAKER) (test code = 2135) PLATELET FUNCTION 60-100% indicates SCREEN INTERP (BEAKER) normal platelet (test code = 2173) function [id number] Toshia Post MD [facility] (test code = (electronic signature) 1270) PLATELET COUNT AGG 198 K/CU MM 150-450 (BEAKER) (test code = 5112) for patients on clopidogrel in past two weeksPOCT-GLUCOSE [id number] 08:11:00 Test Item Value Reference Range Interpretation Comments POC-GLUCOSE METER 116 mg/dL 70-[address] [facility] 6720 ([facility]) (test code = MATTHIASAMANDA Dylon [place] 1538) [address] [id number] 07:10:00 Test Item Value Reference Range Interpretation Comments PHOSPHORUS (BEAKER) (test code = 4.5 mg/dL 2.3-4.7 604) [id number] 07:10:00 Test Item Value Reference Range Interpretation Comments MAGNESIUM (BEAKER) (test code = 2.1 mg/dL 1.6-2.6 627) BASIC METABOLIC [id number] 07:10:00 Test Item Value Reference Range Interpretation [...] = 700) CBC W/PLT COUNT & AUTO [id number] 06:46:00 Test Item Value Reference Range Interpretation [...] PERCENT (BEAKER) (test code = 2801) CALCIUM, [id number] 06:40:00 Test Item Value Reference Range Interpretation Comments CALCIUM IONIZED (BEAKER) (test 1.06 mmol/L 1.12-1.27 L code = 698) PH, BLOOD (BEAKER) (test code = 7.39 1810) POCT-GLUCOSE [id number] 23:22:00 Test Item Value Reference Range Interpretation Comments POC-GLUCOSE METER 165 mg/dL 70-[address] [facility] 67[address] ([facility]) (test code = [place]IANO [place] 1538) [address] URINE PROTEIN ELECTROPHORESIS, [id number] 18:02:00 Test Item Value Reference Range Interpretation Comments PROTEIN, URINE 305 mg/dL 0-14 H (BEAKER) (test code = 1569) ALBUMIN URINE ELP 70.9 % (BEAKER) (test code = 1018) GAMMA GLOBULIN URINE 29.1 % (BEAKER) (test code = 1015) UPEP, [id number] ([facility]) No monoclonal bands (test code = 2604) detected. [id number] Rocio Galindo MD ([facility]) (test code = (electronic signature) 2640) PROTEIN ELECTROPHORESIS, [id number] 17:57:00 Test Item Value Reference Range Interpretation [...] all globulin fractions. No monoclonal bands detected. [id number] Rocio Galindo MD (BEAKER) (test code = (electronic signature) 2616) PROTEIN TOTAL SERUM, 5.5 gm/dL 6.0-8.3 L SPEP (BEAKER) (test code = 5460) POCT-GLUCOSE [id number] 17:15:00 Test Item Value Reference Range Interpretation Comments POC-GLUCOSE METER 209 mg/dL 70-[address] [facility] 67[address] (BEAKER) (test code = JULIANO Osborne [place] 1538) [address] BLOOD GAS, [id number] 15:54:00 Test Item Value Reference Range Interpretation [...] 36.0 % RAD, CHEST, 1 VIEW, NON [id number] 14:07:00Reason for exam:->SOB, hypoxemiaShould this be performed [...] Cespedes MDReport Verified Date/Time: 05/19/2017 14:07:07 Reading Location:[facility] C013W Consult Reading Room POCT-GLUCOSE [id number] 11:26:00 Test Item Value Reference Range Interpretation Comments POC-GLUCOSE METER 262 mg/dL 70-[address] [facility] 67[address] (BEAKER) (test code = [facility] 1538) [address] POCT-GLUCOSE [id number] 07:37:00 Test Item Value Reference Range Interpretation Comments POC-GLUCOSE METER 170 mg/dL 70-[address] [facility] 67[address] (BEAKER) (test code = [facility] 1538) [address] CALCIUM, [id number] 06:06:00 Test Item Value Reference Range Interpretation Comments CALCIUM IONIZED (BEAKER) (test 1.05 mmol/L 1.12-1.27 L code = 698) PH, BLOOD (BEAKER) (test code = 7.41 1810) [id number] 05:38:00 Test Item Value Reference Range Interpretation Comments PHOSPHORUS (BEAKER) (test code = 3.9 mg/dL 2.3-4.7 604) [id number] 05:38:00 Test Item Value Reference Range Interpretation Comments MAGNESIUM (BEAKER) (test code = 2.2 mg/dL 1.6-2.6 627) BASIC METABOLIC [id number] 05:38:00 Test Item Value Reference Range Interpretation [...] PATIEN TS. CBC W/PLT COUNT & AUTO [id number] 05:09:00 Test Item Value Reference Range Interpretation [...] PERCENT (BEAKER) (test code = 2801) POCT-GLUCOSE [id number] 22:08:00 Test Item Value Reference Range Interpretation Comments POC-GLUCOSE METER 263 mg/dL 70-110 H TESTED AT [place] [address] ([facility] (test code = [facility] 1538) [address] POCT-GLUCOSE [id number] 17:20:00 Test Item Value Reference Range Interpretation Comments POC-GLUCOSE METER 233 mg/dL 70-110 H TESTED AT [place] [address] ([facility] (test code = [facility] 1538) [address] POCT-GLUCOSE [id number] 08:28:00 Test Item Value Reference Range Interpretation Comments POC-GLUCOSE METER 154 mg/dL 70-110 H TESTED AT [place] [address] ([facility]) (test code = [facility] 1538) [address] BASIC METABOLIC [id number] 06:41:00 Test Item Value Reference Range Interpretation [...] S NOT APPLICABLE FOR DIALYSIS PATIEN TS. [id number] 06:35:00 Test Item Value Reference Range Interpretation Comments PHOSPHORUS (BEAKER) (test code = 4.1 mg/dL 2.3-4.7 604) [id number] 06:35:00 Test Item Value Reference Range Interpretation Comments MAGNESIUM (BEAKER) (test code = 2.1 mg/dL 1.6-2.6 627) CALCIUM, [id number] 06:22:00 Test Item Value Reference Range Interpretation Comments CALCIUM IONIZED (BEAKER) (test 1.10 mmol/L 1.12-1.27 L code = 698) PH, BLOOD (BEAKER) (test code = 7.38 1810) CBC W/PLT COUNT & AUTO [id number] 06:04:00 Test Item Value Reference Range Interpretation [...] PERCENT (BEAKER) (test code = 2801) POCT-GLUCOSE [id number] 03:44:00 Test Item Value Reference Range Interpretation Comments POC-GLUCOSE METER 220 mg/dL 70-110 H TESTED AT [place] [address] ([facility] (test [facility] = [facility] 1538) [address] POCT-GLUCOSE [id number] 18:27:00 Test Item Value Reference Range Interpretation Comments POC-GLUCOSE METER 256 mg/dL 70-110 H TESTED AT [place] [address] ([facility]) (test code = [facility] 1538) [address] POCT-GLUCOSE [id number] 15:45:00 Test Item Value Reference Range Interpretation Comments POC-GLUCOSE METER 278 mg/dL 70-[address] [facility] 6720 ([facility] (test code = [facility] [place] Dylon [facility] 1538) [address] POCT-GLUCOSE [id number] 13:22:00 Test Item Value Reference Range Interpretation Comments POC-GLUCOSE METER 278 mg/dL 70-[address] [facility] 67[address] ([facility]) (test code = JULIANO Osborne [place] 1538) [address] PLATELET AGGREGATION: FUNCTION [id number] 13:18:00 Test Item Value Reference Range Interpretation Comments WEAK ADP 66 % 60-91 RESULT(BEAKER) (test code = 2135) PLATELET FUNCTION 60-100% indicates SCREEN INTERP (BEAKER) normal platelet (test code = 2173) function [id number] Rigoberto Duenas MD (BEAKER) (test code = (electronic signature) 7838) PLATELET COUNT AGG 204 K/CU MM 150-450 (BEAKER) (test code = 2656) POCT-GLUCOSE [id number] 08:27:00 Test Item Value Reference Range Interpretation Comments POC-GLUCOSE METER 189 mg/dL 70-[address] [facility] 67[address] (BEAKER) (test code = [place] 1538) [address] CALCIUM, [id number] 06:12:00 Test Item Value Reference Range Interpretation Comments CALCIUM IONIZED (BEAKER) (test 1.07 mmol/L 1.12-1.27 L code = 698) PH, BLOOD (BEAKER) (test code = 7.36 1810) [id number] 05:43:00 Test Item Value Reference Range Interpretation Comments PHOSPHORUS (BEAKER) (test code = 3.6 mg/dL 2.3-4.7 604) [id number] 05:43:00 Test Item Value Reference Range Interpretation Comments MAGNESIUM (BEAKER) (test code = 2.1 mg/dL 1.6-2.6 627) BASIC METABOLIC [id number] 05:43:00 Test Item Value Reference Range Interpretation [...] PATIEN TS. CBC W/PLT COUNT & AUTO [id number] 05:05:00 Test Item Value Reference Range Interpretation [...] EOSINOPHILS ABSOLUTE COUNT 0.27 K/ L 0.04-0.36 ([facility]) (test code = 416) BASOPHILS ABSOLUTE COUNT ([facility]) 0.06 K/ L 0.01-0.08 (test code = 417) IMMATURE GRANULOCYTES-RELATIVE 0 % 0-1 PERCENT ([facility]) (test code = 2801) POCT-GLUCOSE [id number] 21:32:00 Test Item Value Reference Range Interpretation Comments POC-GLUCOSE METER 176 mg/dL 70-110 H TESTED AT [place] [address] ([facility]) (test code = [facility] 1538) [address] POCT-GLUCOSE [id number] 20:27:00 Test Item Value Reference Range Interpretation Comments POC-GLUCOSE METER 161 mg/dL 70-110 H TESTED AT [place] [address] ([facility]) (test code = [facility] 1538) [address] POCT-GLUCOSE [id number] 18:23:00 Test Item Value Reference Range Interpretation Comments POC-GLUCOSE METER 185 mg/dL 70-110 H TESTED AT [place] [address] ([facility]) (test code = [facility] 1538) [address] POCT-GLUCOSE [id number] 13:26:00 Test Item Value Reference Range Interpretation Comments POC-GLUCOSE METER 282 mg/dL 70-110 H TESTED AT [place] [address] ([facility]) (test code = [facility] 1538) [address] URINE [id number] 10:12:00 Test Item Value Reference Range Interpretation Comments CULTURE ([facility]) (test >100,000 col/mL skin code = 1095) todd POCT-GLUCOSE [id number] 09:01:00 Test Item Value Reference Range Interpretation Comments POC-GLUCOSE METER 268 mg/dL 70-110 H TESTED AT [place] [address] ([facility]) (test code = [facility] 1538) [address] CALCIUM, [id number] 05:39:00 Test Item Value Reference Range Interpretation Comments CALCIUM IONIZED ([facility]) (test 0.84 mmol/L 1.12-1.27 L code = 698) PH, BLOOD ([facility]) (test code = 7.35 1810) BASIC METABOLIC [id number] 05:07:00 Test Item Value Reference Range Interpretation [...] S NOT APPLICABLE FOR DIALYSIS PATIEN TS. [id number] 05:06:00 Test Item Value Reference Range Interpretation Comments PHOSPHORUS (BEAKER) (test code = 3.2 mg/dL 2.3-4.7 604) [id number] 05:06:00 Test Item Value Reference Range Interpretation Comments MAGNESIUM (BEAKER) (test code = 2.3 mg/dL 1.6-2.6 627) CBC W/PLT COUNT & AUTO [id number] 04:42:00 Test Item Value Reference Range Interpretation [...] = 2801) RHEUMATOID FACTOR AB, REFLEX TO [id number] 01:52:00 Test Item Value Reference Range Interpretation Comments RHEUMATOID FACTOR ([facility]) (test Negative code = 573) POCT-GLUCOSE [id number] 21:57:00 Test Item Value Reference Range Interpretation Comments POC-GLUCOSE METER 105 mg/dL 70-[address] [facility] 6720 ([facility]) (test code = [place] 1538) [address] POCT-GLUCOSE [id number] 18:11:00 Test Item Value Reference Range Interpretation Comments POC-GLUCOSE METER 312 mg/dL 70-110 H Notified R Sonya PIERRE/TESTED (BEAKER) (test code = AT [facility] [address] [place] 1538) [facility] 7703 0 PET, CARDIAC PERFUSION MULTIPLE STUDIES, REST AND [id number] 16:28:00 Reason for exam:->pvcs, known cadFINAL REPORT PROCEDURE: Rest/Stress MYOCARDIAL PERFUSION PET with regadenoson\\XA9\\ CPT CODE: 62710 INDICATION: Defined extent and severity of known [...] is 23%. LVEF at stress is 36%. 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 7. No previous [facility] study for comparison. NONINVASIVE RISK STRATIFICATION: The above findings are considered high risk (>3% annual mortality rate) based on the following criteria: - Severe resting left ventricular dysfunction (LVEF 35%)- Stress-induced large perfusion defect (particularly if anterior)(JACC. 2012;59(9):857-81.) Signed: Natan Whaley Verified Date/Time: 05/15/2017 16:28:12 Reading Location: [address] ReadingRoom RAD, CHEST, 1 VIEW, NON [id number] 15:56:00Reason for exam:->SOBShould this be performed at the bedside?->YesFINAL REPORT Comparison: 05/14/2017 TECHNIQUE: Single view of the chest FINDINGS: There is a small right pleural effusion with nonspecific airspace disease. This is unchanged. Left lung is grossly clear. Cardiac silhouette is enlarged. IMPRESSION: 1. No acute cardiopulmonary disease. Signed: Sixto Monk MDReport Verified Date/Time: 05/15/2017 15:56:39 Reading Location: [facility] iology Reading Room POCT-GLUCOSE [id number] 12:54:00 Test Item Value Reference Range Interpretation Comments POC-GLUCOSE METER 308 mg/dL 70-110 H Notified Dylon Hassan MD/NATHAN (ROBERT) (test code = AT [facility] [address] [facility] 1538) [facility] 7[address] 0 U/S, RENAL WITH [id number] 11:04:00Reason for exam:->tracy, htnShould this be performed [...] MDReport Verified Date/Time: 05/15/2017 11:04:01 Reading Location: [address] Ultrasound Reading Room ANA TITER AND [id number] 10:57:00 Test Item Value Reference Range Interpretation Comments ROGER TITER (BEAKER) (test code = :160 1541) ROGER PATTERN (BEAKER) (test code = Speckled 1781) ANTI-NUCLEAR ANTIBODY (ROGER)2017-05-15 10:56:00 Test Item Value Reference Range Interpretation Comments ANTI-NUCLEAR ANTIBODY (ROGER) (BEAKER) Positive Negative A (test code = 418) CALCIUM, [id number] 06:00:00 Test Item Value Reference Range Interpretation Comments CALCIUM IONIZED (BEAKER) (test 1.07 mmol/L 1.12-1.27 L code = 698) PH, BLOOD (BEAKER) (test code = 7.28 1810) HEPATITIS PANEL, [id number] 05:01:00 Test Item Value Reference Range Interpretation Comments HEPATITIS A IGM ANTIBODY (BEAKER) Nonreactive Nonreactive (test code = 498) HEPATITIS B CORE IGM ANTIBODY Nonreactive Nonreactive (BEAKER) (test code = 645) HEPATITIS C ANTIBODY (BEAKER) Nonreactive Nonreactive (test code = 367) HEPATITIS B SURFACE ANTIGEN (2) Nonreactive Nonreactive (BEAKER) (test code = 2585) BASIC METABOLIC [id number] 04:48:00 Test Item Value Reference Range Interpretation [...] NOT APPLICABLE FOR DIALYSIS PATIEN TS. URIC [id number] 04:41:00 Test Item Value Reference Range Interpretation Comments URIC ACID (BEAKER) (test code = 10.3 mg/dL 2.6-7.2 H 773) [id number] 04:41:00 Test Item Value Reference Range Interpretation Comments MAGNESIUM (BEAKER) (test code = 2.0 mg/dL 1.6-2.6 627) [id number] 04:41:00 Test Item Value Reference Range Interpretation Comments PHOSPHORUS (BEAKER) (test code = 4.2 mg/dL 2.3-4.7 604) COMPLEMENT COMPONENT [id number] 04:38:00 Test Item Value Reference Range Interpretation Comments C4 COMPLEMENT (BEAKER) (test code = 28 mg/dL 15-57 394) COMPLEMENT COMPONENT [id number] 04:38:00 Test Item Value Reference Range Interpretation Comments C3 COMPLEMENT (BEAKER) (test code = 103 mg/dL 82-193 393) CBC W/PLT COUNT & AUTO [id number] 04:22:00 Test Item Value Reference Range Interpretation [...] PERCENT (BEAKER) (test code = 2801) POCT-GLUCOSE [id number] 21:46:00 Test Item Value Reference Range Interpretation Comments POC-GLUCOSE METER 173 mg/dL 70-110 H TESTED AT [place] [address] ([facility]) (test code = [facility] 1538) [address] POCT-GLUCOSE [id number] 21:46:00 Test Item Value Reference Range Interpretation Comments POC-GLUCOSE METER 154 mg/dL 70-110 H TESTED AT [place] [address] ([facility]) (test code = [facility] 1538) [address] POCT-GLUCOSE [id number] 18:17:00 Test Item Value Reference Range Interpretation Comments POC-GLUCOSE METER 175 mg/dL 70-110 H TESTED AT [place] [address] ([facility]) (test code = [facility] 1538) [address] RAD, CHEST, 1 VIEW, NON [id number] 14:56:00Reason for exam:->SOBShould this be performed at the bedside?->YesFINAL REPORT INDICATION: SOB COMPARISON: May 13, 2017 TECHNIQUE: Chest radiograph, single view, portable technique. FINDINGS / IMPRESSION: Enlarged heart shadow, small rightpleural effusion, and pulmonary venous congestion, again demonstrated. No pneumothorax or consolidation. Osseous structures unremarkable. Signed: Thania Dwyer MDReport Verified Date/Time: 05/14/2017 14:56:58 Reading Location: [facility] Reading Room POCT-GLUCOSE [id number] 12:18:00 Test Item Value Reference Range Interpretation Comments POC-GLUCOSE METER 313 mg/dL 70-[address] [facility] 6720 (BEAKER) (test code = [place] 1538) [address] HIV-1 ANTIGEN WITH HIV-1/2 [id number] 12:07:00 Test Item Value Reference Range Interpretation Comments HIV-1 ANTIGEN WITH HIV 1\\T\\2 Nonreactive Nonreactive ANTIBODY (2) (BEAKER) (test code = 2586) CALCIUM, [id number] 06:37:00 Test Item Value Reference Range Interpretation Comments CALCIUM IONIZED (BEAKER) (test 1.08 mmol/L 1.12-1.27 L code = 698) PH, BLOOD (BEAKER) (test code = 7.25 1810) BASIC METABOLIC [id number] 06:26:00 Test Item Value Reference Range Interpretation [...] 697) EGFR (BEAKER) (test 16 mL/min/1.73 ESTIMA MERAN GFR IS code = 1092) sq m NOT ACCURATE CREATININE CLEARANCE IN PREDICTING GLOMERULAR FILTRATION RATE . ESTIMATED GFR I S NOT APPLICABLE FOR DIALYSIS PATIEN TS. B-TYPE NATRIURETIC FACTOR (BNP)2017-05-14 06:26:00 Test Item Value Reference Range Interpretation Comments B-TYPE NATRIURETIC PEPTIDE (BEAKER) 474 pg/mL 0-100 H (test code = 700) [id number] 06:25:00 Test Item Value Reference Range Interpretation Comments PHOSPHORUS (BEAKER) (test code = 5.7 mg/dL 2.3-4.7 H 604) [id number] 06:25:00 Test Item Value Reference Range Interpretation Comments MAGNESIUM (BEAKER) (test code = 1.5 mg/dL 1.6-2.6 L 627) CBC W/PLT COUNT & AUTO [id number] 06:07:00 Test Item Value Reference Range Interpretation [...] PERCENT (BEAKER) (test code = 2801) POCT-GLUCOSE [id number] 22:38:00 Test Item Value Reference Range Interpretation Comments POC-GLUCOSE METER 262 mg/dL 70-[address] [facility] 6720 (BEAKER) (test code = [place] 1538) [id number] PROTEIN, RANDOM [id number] 22:18:00 Test Item Value Reference Range Interpretation Comments PROTEIN, URINE (BEAKER) (test code 641 mg/dL 0-14 H = 1569) CREATININE, RANDOM [id number] 22:07:00 Test Item Value Reference Range Interpretation Comments CREATININE URINE (BEAKER) (test 124.9 mg/dL code = 375) Reference Range: No NormalsURINALYSIS W/ [id number] 22:03:00 Test Item Value Reference Range Interpretation [...] 1585) SOURCE(BEAKER) (test code = Urine, Voided 2438) [id number] 19:49:00 Test Item Value Reference Range Interpretation Comments SODIUM (BEAKER) (test 136 meq/L 136-145 code = 381) POTASSIUM (BEAKER) 5.1 meq/L 3.5-5.1 Specimen slightly (test code = 379) hemolyzed CHLORIDE (BEAKER) 104 meq/L 98-107 (test code = 382) CO2 (BEAKER) (test 25 meq/L 22-29 code = 355) Call if K > 5POCT-GLUCOSE [id number] 11:37:00 Test Item Value Reference Range Interpretation Comments POC-GLUCOSE METER 293 mg/dL 70-[address] [facility] 6720 (BEAKER) (test code = [place] 1538) [id number] RAD, CHEST, 1 VIEW, NON [id number] 10:22:00Reason for exam:->SOBShould this be performed at the bedside?->YesFINAL REPORT Chest one view Discussion: There is cardiomegaly and interstitial congestion. A small right-sided effusion is noted. No pneumothorax. IMPRESSIONS: Suspected CHF. Signed: Jeannette Nava Verified Date/Time: 05/13/2017 10:22:34 Reading Location: [facility] Radiology Reading Room POCT-GLUCOSE METER 2017-05-13 08:34:00 Test Item Value Reference Range Interpretation Comments POC-GLUCOSE METER 178 mg/dL 70-[address] [facility] 6720 (BEAKER) (test code = [place] 1538) [id number] POCT-GLUCOSE [id number] 06:53:00 Test Item Value Reference Range Interpretation Comments POC-GLUCOSE METER 167 mg/dL 70-[address] [facility] 6720 (BEAKER) (test code = [place] 1538) [id number] 04:48:00 Test Item Value Reference Range Interpretation Comments BLOOD UREA NITROGEN (BEAKER) (test 36 mg/dL 7-21 H code = 354) [id number] 04:48:00 Test Item Value Reference Range Interpretation Comments SODIUM (BEAKER) (test code = 381) 139 meq/L 136-145 POTASSIUM (BEAKER) (test code = 5.2 meq/L 3.5-5.1 H 379) CHLORIDE (BEAKER) (test code = 382) 109 meq/L 98-107 H CO2 (BEAKER) (test code = 355) 23 meq/L 22-29 [id number] 04:48:00 Test Item Value Reference Range Interpretation [...] WBC 0-0 (BEAKER) (test code = 413) [id number] 23:29:00 Test Item Value Reference Range Interpretation Comments ACTIVATED CLOTTING TIME 136 sec TEST ED AT [place] [address] ([facility]) (test code = JULIANO Osborne [place] [address]) [id number] 20:13:00 Test Item Value Reference Range Interpretation Comments ACTIVATED CLOTTING TIME 175 sec TEST ED AT [place] [address] ([facility]) (test code = JULIANO Osborne [place] [address]) [address] [id number] 18:36:00 Test Item Value Reference Range Interpretation Comments ACTIVATED CLOTTING TIME 202 sec TEST ED AT [place] [address] ([facility]) (test code = JULIANO Osborne [place] [address]) [address] [id number] 18:03:00 Test Item Value Reference Range Interpretation Comments ACTIVATED CLOTTING TIME 208 sec TEST ED AT [place] [address] ([facility]) (test code = MATTHIASMA Dylon [place] [address]) [address] BASIC METABOLIC [id number] 11:57:00 Test Item Value Reference Range Interpretation [...] NOT APPLICABLE FOR DIALYSIS PATIEN TS. PROTHROMBIN [id number] 11:15:00 Test Item Value Reference Range Interpretation [...] if on CoumadinCBC W/PLT COUNT & AUTO [id number] 11:01:00 Test Item Value Reference Range Interpretation [...] PERCENT (BEAKER) (test code = 2801) POCT-GLUCOSE [id number] 12:35:00 Test Item Value Reference Range Interpretation Comments POC-GLUCOSE METER 249 mg/dL 70-110 H TEST[facility] AT [place] [address] [facility] (test code = [facility] 1538) [address] POCT-GLUCOSE [id number] 09:10:00 Test Item Value Reference Range Interpretation Comments POC-GLUCOSE METER 155 mg/dL 70-110 H TESTED AT [place] [address] ([facility] (test code = [facility] 1538) [address] BASIC METABOLIC [id number] 05:39:00 Test Item Value Reference Range Interpretation [...] S NOT APPLICABLE FOR DIALYSIS PATIEN TS. [id number] 05:27:00 Test Item Value Reference Range Interpretation Comments PHOSPHORUS (BEAKER) (test code = 5.0 mg/dL 2.3-4.7 H 604) [id number] 05:27:00 Test Item Value Reference Range Interpretation Comments MAGNESIUM (BEAKER) (test code = 1.6 mg/dL 1.6-2.6 627) POCT-GLUCOSE [id number] 05:25:00 Test Item Value Reference Range Interpretation Comments POC-GLUCOSE METER 144 mg/dL 70-110 H TESTED AT [place] [address] ([facility]) (test code = [facility] [place] 1538) [id number] PROTHROMBIN [id number] 04:58:00 Test Item Value Reference Range Interpretation Comments PROTIME (BEAKER) (test code = 14.2 seconds 11.7-14.7 759) INR (BEAKER) (test code = 370) 1.1 <=5.9 RECOMMENDED COUMADIN/WARFARIN INR THERAPY RANGESSTANDARD DOSE: 2.0 - 3.0 Includes: PROPHYLAXIS forvenous thrombosis, systemic embolization; TREATMENT for venous thrombosis and/or pulmonary embolus.HIGH RISK: Target INR is 2.5-3.5 for patients with mechanical heart valves.POCT-GLUCOSE [id number] 23:55:00 Test Item Value Reference Range Interpretation Comments POC-GLUCOSE METER 86 mg/dL 70-[address] [facility] 67[address] ([facility]) (test code = [place] [address]38) B-TYPE NATRIURETIC FACTOR (BNP)2017-04-22 18:13:00 Test Item Value Reference Range Interpretation Comments B-TYPE NATRIURETIC PEPTIDE 1203 pg/mL 0-100 H ([facility]) (test code = 700) POCT-GLUCOSE [id number] 17:36:00 Test Item Value Reference Range Interpretation Comments POC-GLUCOSE METER 259 mg/dL 70-[address] [facility] 67[address] ([facility]) (test code = JULIANO Osborne [facility] 1538) [id number] HEMOGLOBIN [id number] 14:24:00 Test Item Value Reference Range Interpretation Comments HEMOGLOBIN A1C (BEAKER) (test code = 10.5 % 4.3-6.1 H 368) POCT-GLUCOSE [id number] 12:34:00 Test Item Value Reference Range Interpretation Comments POC-GLUCOSE METER 207 mg/dL 70-[address] [facility] 67[address] ([facility]) (test code = [facility] 1538) [id number] 07:53:00 Test Item Value Reference Range Interpretation Comments PHOSPHORUS (BEAKER) (test code = 3.9 mg/dL 2.3-4.7 604) [id number] 07:53:00 Test Item Value Reference Range Interpretation Comments MAGNESIUM (BEAKER) (test code = 1.6 mg/dL 1.6-2.6 627) BASIC METABOLIC [id number] 07:53:00 Test Item Value Reference Range Interpretation [...] NOT APPLICABLE FOR DIALYSIS PATIEN TS. TROPONIN [id number] 07:29:00 Test Item Value Reference Range Interpretation [...] acidosis, acute neurological disease, and persistent tachyarrhythmia.PROTHROMBIN [id number] 07:01:00 Test Item Value Reference Range Interpretation Comments PROTIME (ROBERT) (test code = 13.8 seconds 11.7-14.7 759) INR (ROBERT) (test code = 370) 1.1 <=5.9 RECOMMENDED COUMADIN/WARFARIN INR THERAPY RANGESSTANDARD DOSE: 2.0 - 3.0 Includes: PROPHYLAXIS forvenous thrombosis, systemic embolization; TREATMENT for venous thrombosis and/or pulmonary embolus.HIGH RISK: Target INR is 2.5-3.5 for patients with mechanical heart valves.POCT-GLUCOSE [id number] 06:28:00 Test Item Value Reference Range Interpretation Comments POC-GLUCOSE METER 198 mg/dL 70-[address] [facility] 6720 (ROBERT) (test code = [place] 1538) [id number] CREATINE KINASE (CK), TOTAL AND [id number] 00:49:00 Test Item Value Reference Range Interpretation Comments CREATINE KINASE TOTAL (SERVANDOAKER) 69 U/L 29-200 (test code = 380) CREATINE KINASE-MB (SERVANDOAKER) (test 4.3 ng/mL 0.0-6.6 code = 750) CREATINE KINASE-MB INDEX (ROBERT) 6.2 % (test code = 395) CK-MB Reference Range:<6.7 Normal6.7-10.0 Borderline>10.0 AbnormalTROPONIN [id number] 00:49:00 Test Item Value Reference Range Interpretation [...] acidosis, acute neurological disease, and persistent tachyarrhythmia.POCT-GLUCOSE [id number] 20:44:00 Test Item Value Reference Range Interpretation Comments POC-GLUCOSE METER 269 mg/dL 70-[address] [facility] 67[address] (ROBERT) (test code = [place] 1535) [id number]
--- NOTE | 2020-10-05 18:35 | RAD REPORT ---
EXAM DESCRIPTION: RAD - Chest Single View - 10/05/2020 6:29 pm CLINICAL HISTORY: COUGH Chest pain. COMPARISON: Chest Single View dated 09/21/2020; Chest Single View dated 07/10/2020; Chest Single View dated 06/27/2020; Chest Single View dated 06/13/2020; Chest Single View dated 10/16/2019 FINDINGS: Portable technique limits examination quality. Mild interstitial pulmonary edema seen. Right basilar atelectasis and pleural fluid appears chronic. The heart is moderately enlarged with unchanged position of the venous catheter. Sternotomy wires pre sent. IMPRESSION: Mild CHF versus volume overload pattern.
[2020-10-05 19:09] LABS: Absolute Lymphocytes (CBC) 1.5 K/uL (0.7-4.9); Basophils % 1.1 % (0-1.3); Hematocrit 33.7 % (36.0-45.0); MPV 6.8 fL (7.6-11.3); RBC Red Blood Cell Count 3.89 M/uL (3.86-4.86)
[2020-10-05 19:11] LABS: Protime INR 1.17
--- NOTE | 2020-10-05 19:19 | ER ---
Nurse's Notes [facility] Name: Christy Priest Age: 65 yrs Sex: Female : 1955 Arrival Date: 10/05/2020 Time: 18:14 Bed 15 Private MD: Diagnosis: Pleural condition, unspecified-right;Weakness;Dyspnea;End stage renal disease-on HD;Unspecified combined systolic (congestive) and diastolic (congestive) heart failure Presentation: 10/05 18:15 Chief complaint: EMS states: Difficulty breathing and generally not feeling well after ss dialysis this morning. Coronavirus screen: Client presents with at least one sign or symptom that may indicate coronavirus-19. Standard/surgical mask placed on the client. Provider contacted for isolation considerations. Ebola Screen: Patient denies exposure to infectious person. Patient denies travel to an Ebola-affected area in the 21 days before illness onset. Initial Sepsis Screen: Does the patient meet any 2 criteria? No. Patient's initial sepsis screen is negative. Does the patient have a suspected source of infection?. Risk Assessment: Do you want to hurt yourself or someone else? Patient reports no desire to harm self or others. Onset of symptoms was October 05, 2020. 18:15 Method Of Arrival: EMS: [facility] 18:15 Acuity: DENNY 3 ss Triage Assessment: 18:58 Respiratory: the patient has mild shortness of breath. kg Historical: - Allergies: 18:22 Augmentin; ss 18:22 basil; ss 18:22 Clindamycin; ss 18:22 Morphine; ss 18:22 Nitroglycerin; ss 18:22 Tramadol HCl; ss 18:22 Trazodone; ss 18:22 Vancomycin; ss 18:22 Vicodin; ss - PMHx: 18:22 ADD/ADHD; CHF; COPD; Diabetes - IDDM; Dialysis; ESRD; High Cholesterol; Hypertension; ss triple bypass; uterine cancer; - Social history:: Smoking status: Patient reports the use of cigarette tobacco products, denies chronic smoking, but will smoke occasionally. Screenin:56 Abuse screen: Denies threats or abuse. Denies injuries from another. Nutritional kg screening: No deficits noted. Tuberculosis screening: No symptoms or risk factors identified. Fall Risk None identified. No fall in past 12 months (0 pts). No secondary diagnosis (0 pts). IV access (20 points). Ambulatory Aid- None/Bed Rest/Nurse Assist (0 pts). Gait- Weak (10 pts.). Mental Status- Oriented to own ability (0 pts). Total Merlos Fall Scale indicates Low Risk Score (25-44 pts). Fall prevention measures have been instituted. Side Rails Up X 2 Placed close to Nursing Station Frequent Obs/Assesments occuring As available Patient and Family Educated on Fall Prevention Program and strategies. Assessment: 18:48 General: Appears in no apparent distress. Behavior is calm, cooperative, appropriate kg for age, quiet. Pain: Complains of pain in right leg, left leg, chest Pain radiates to Generalized Pain currently is 7 out of 10 on a pain scale. at worst was 7 out of 10 on a pain scale. level that patient reports is acceptable is 3 out of 10 on a pain scale. Quality of pain is described as aching, Pain began 2-3 days ago. Neuro: No deficits noted. Level of Consciousness is awake, alert, obeys commands, Oriented to person, place, time, situation, Appropriate for age. Cardiovascular: Reports chest pain, shortness of breath, Heart tones S1 S2 Edema +3 BLE. Rhythm is regular. Respiratory: Reports shortness of breath at rest on exertion since x 3 days Airway is compromised Respiratory effort is even, labored, Breath sounds are clear. 18:54 Respiratory: Breath sounds are clear bilaterally. Breath sounds are diminished kg bilaterally. GI: Abdomen is distended, noted to have ascites, ascites. : Reports She doesn't produce urine. EENT: No deficits noted. Derm: No deficits noted. 19:39 Reassessment: Patient and/or family updated on plan of care and expected duration. Pain ak2 level reassessed. Vital Signs: 18:15 BP 173 / 64; Pulse 87; Resp 18; Temp 98.0; Pulse Ox 96% on 2 lpm NC; ss 18:30 BP 156 / 77; Pulse 82; Resp 21; kg 18:45 BP 153 / 90; Pulse 83; Resp 20; Pulse Ox 100% on R/A; kg 20:42 BP 158 / 87; Pulse 77; Resp 16; Pulse Ox 99% on 2 lpm NC; jm8 23:04 BP 162 / 72; Pulse 78; Resp 16; Pulse Ox 99% on 2 lpm NC; jm8 ED Course: 18:14 Patient arrived in ED. ss 18:17 Alessio Parry MD is Attending Physician. [facility] 18:21 Triage completed. ss 18:22 Arm band placed on right wrist. ss 18:29 XRAY Chest (1 view) In Process Unspecified. EDMS 18:29 Belkis Kenny, RN is Primary Nurse. kg 18:58 Patient has correct armband on for positive identification. Placed in gown. Bed in low kg position. Call light in reach. Side rails up X2. 19:16 Nimesh Barreto DO is Hospitalizing Provider. [facility] Administered Medications: 19:23 Drug: Rocephin (cefTRIAXone) 1 grams Route: IV; Rate: per protocol; Site: right wrist; kg 19:23 Follow up: IV Status: Completed infusion kg 19:57 Drug: Cobalt (HYDROcodone-acetaminophen) 10 mg-325 mg 1 tabs Route: PO; [facility] 20:42 Follow up: Response: No adverse reaction [facility] Outcome: 19:18 Decision to Hospitalize by Provider. [facility] 10/06 12:25 Patient left the ED. ph Signatures: Dispatcher [employer] EDGA Alessio Parry MD MD cha Smirch, Shelby, RN RN Patricia Hood RN RN Fer Agarwal, RN GUILHERME [facility] Belkis Kenny, GUILHERME VANEGAS James Castañeda2 Corrections: (The following items were deleted from the chart) 10/05 19:00 18:45 BP 153 / 90; Pulse 83bpm; Resp 20bpm; kg kg
--- NOTE | 2020-10-05 19:19 | EDPHYS ---
Physician Documentation [facility] Name: Christy Priest Age: 65 yrs Sex: Female : 1955 Arrival Date: 10/05/2020 Time: 18:14 Bed 15 Private MD: ED Physician Alessio Parry HPI: 10/05 19:09 This 65 yrs old Female presents to ER via EMS with complaints of Breathing carlos Difficulty. 19:09 The patient has shortness of breath at rest, with light activity. Onset: The carlos symptoms/episode began/occurred 3 day(s) ago. Duration: The symptoms are continuous, and are steadily getting worse. The patient's shortness of breath is aggravated by supine position, talking, walking, is alleviated by rest, sitting up, application of supplemental oxygen. Associated signs and symptoms: Pertinent positives: non-productive cough. Severity of symptoms: At their worst the symptoms were moderate in the emergency department the symptoms have improved mildly. The patient has not experienced similar symptoms in the past. Historical: - Allergies: 18:22 Augmentin; ss 18:22 basil; ss 18:22 Clindamycin; ss 18:22 Morphine; ss 18:22 Nitroglycerin; ss 18:22 Tramadol HCl; ss 18:22 Trazodone; ss 18:22 Vancomycin; ss 18:22 Vicodin; ss - PMHx: 18:22 ADD/ADHD; CHF; COPD; Diabetes - IDDM; Dialysis; ESRD; High Cholesterol; Hypertension; ss triple bypass; uterine cancer; - Social history:: Smoking status: Patient reports the use of cigarette tobacco products, denies chronic smoking, but will smoke occasionally. ROS: 19:10 Constitutional: Negative for fever, chills, and weight loss, Eyes: Negative for injury, carlos pain, redness, and discharge, ENT: Negative for injury, pain, and discharge, Neck: Negative for injury, pain, and swelling, Cardiovascular: Negative for chest pain, palpitations, and edema, Abdomen/GI: Negative for abdominal pain, nausea, vomiting, diarrhea, and constipation, Back: Negative for injury and pain, : Negative for injury, bleeding, discharge, and swelling, Neuro: Negative for headache, weakness, numbness, tingling, and seizure, Psych: Negative for depression, anxiety, suicide ideation, homicidal ideation, and hallucinations, Allergy/Immunology: Negative for hives, rash, and allergies, Endocrine: Negative for neck swelling, polydipsia, polyuria, polyphagia, and marked weight changes, Hematologic/Lymphatic: Negative for swollen nodes, abnormal bleeding, and unusual bruising. 19:10 Respiratory: Positive for cough, with no reported sputum. Exam: 19:10 Constitutional: This is a well developed, well nourished patient who is awake, alert, carlos and in no acute distress. Head/Face: Normocephalic, atraumatic. Eyes: Pupils equal round and reactive to light, extra-ocular motions intact. Lids and lashes normal. Conjunctiva and sclera are non-icteric and not injected. Cornea within normal limits. Periorbital areas with no swelling, redness, or edema. ENT: Nares patent. No nasal discharge, no septal abnormalities noted. Tympanic membranes are normal and external auditory canals are clear. Oropharynx with no redness, swelling, or masses, exudates, or evidence of obstruction, uvula midline. Mucous membranes moist. Neck: Trachea midline, no thyromegaly or masses palpated, and no cervical lymphadenopathy. Supple, full range of motion without nuchal rigidity, or vertebral point tenderness. No Meningismus. Chest/axilla: Normal chest wall appearance and motion. Nontender with no deformity. No lesions are appreciated. Cardiovascular: Regular rate and rhythm with a normal S1 and S2. No gallops, murmurs, or rubs. Normal PMI, no JVD. No pulse deficits. Abdomen/GI: Soft, non-tender, with normal bowel sounds. No distension or tympany. No guarding or rebound. No evidence of tenderness throughout. Back: No spinal tenderness. No costovertebral tenderness. Full range of motion. Female : Normal external genitalia. Skin: Warm, dry with normal turgor. Normal color with no rashes, no lesions, and no evidence of cellulitis. Neuro: Awake and alert, GCS 15, oriented to person, place, time, and situation. Cranial nerves II-XII grossly intact. Motor strength 5/5 in all extremities. Sensory grossly intact. Cerebellar exam normal. Normal gait. Psych: Awake, alert, with orientation to person, place and time. Behavior, mood, and affect are within normal limits. 19:10 Respiratory: mild respiratory distress is noted, Respirations: labored breathing, that is mild, Breath sounds: decreased breath sounds, that are moderate, are heard in the right posterior middle lobe and right posterior lower lobe, Respiratory rate: 20 19:10 Musculoskeletal/extremity: ROM: intact in all extremities, full active range of motion, full passive range of motion, Circulation is intact in all extremities. Sensation intact. Compartment Syndrome exam of affected extremity: is normal. DVT Exam: no pain, no tenderness, negative Homans' sign noted on exam, no appreciated bluish discoloration, no erythema, no increased warmth, swelling. 19:36 ECG was reviewed by the Attending Physician. [facility] Vital Signs: 18:15 BP 173 / 64; Pulse 87; Resp 18; Temp 98.0; Pulse Ox 96% on 2 lpm NC; ss 18:30 BP 156 / 77; Pulse 82; Resp 21; kg 18:45 BP 153 / 90; Pulse 83; Resp 20; Pulse Ox 100% on R/A; kg 20:42 BP 158 / 87; Pulse 77; Resp 16; Pulse Ox 99% on 2 lpm NC; jm8 23:04 BP 162 / 72; Pulse 78; Resp 16; Pulse Ox 99% on 2 lpm NC; jm8 MDM: 18:17 Patient medically screened. carlos 19:13 Differential diagnosis: Anemia asthma, Bronchitis CHF exacerbation, Chronic Obstructive carlos Pulmonary Disease pneumonia, pulmonary edema, Pulmonary Embolism reactive airway disease, Sepsis Unstable Angina. Antibiotic administration: Rocephin. Differential Diagnosis sepsis, flu. The patient's Wells Deep Vein Thrombosis Score was calculated as follows: Total Score: 0-2 Pts- Low Risk. The patient's pulmonary embolism risk score was calculated as follows: Total Score: 0-2 points. This patient was found to be at low risk for a pulmonary embolism by using the Well's assessment criteria. Immunization status: Pneumococcal vaccine: Influenza vaccine: Data reviewed: vital signs, nurses notes, lab test result(s), EKG, radiologic studies, plain films. Data interpreted: associate professor of english: rate is 83 beats/min, rhythm is regular. Test interpretation: by ED physician or midlevel provider: ECG, plain radiologic studies. Counseling: I had a detailed discussion with the patient and/or guardian regarding: the historical points, exam findings, and any diagnostic results supporting the discharge/admit diagnosis, the presence of at least one elevated blood pressure reading (>120/80) during this emergency department visit, lab results, radiology results, the need for further work-up and treatment in the hospital. 10/05 18:19 Order name: Basic Metabolic Panel; Complete Time: 20:10 [facility] 10/05 18:19 Order name: CBC with Diff; Complete Time: 20:10 [facility] 10/05 18:19 Order name: LFT's; Complete Time: 20:10 [facility] 10/05 18:19 Order name: Magnesium; Complete Time: 20:10 [facility] 10/05 18:19 Order name: NT PRO-BNP; Complete Time: 20:10 [facility] 10/05 18:19 Order name: PT-INR; Complete Time: 20:10 [facility] 10/05 18:19 Order name: Troponin (emerg Dept Use Only); Complete Time: 20:10 [facility] 10/05 18:19 Order name: Blood Culture Adult (2) [facility] 10/05 18:19 Order name: Lactate; Complete Time: 20:10 [facility] 10/05 19:09 Order name: Flu; Complete Time: 20:10 [facility] 10/05 19:55 Order name: SARS-COV-2 RT PCR; Complete Time: 20:10 [facility] 10/06 01:21 Order name: Troponin I EDKY 10/06 01:25 Order name: Glucose, Ancillary Testing EDKY 10/05 18:19 Order name: XRAY Chest (1 view); Complete Time: 20:10 [facility] 10/05 18:19 Order name: EKG; Complete Time: 18:20 [facility] 10/05 18:19 Order name: Cardiac monitoring; Complete Time: 19:23 [facility] 10/05 18:19 Order name: EKG - Nurse/Tech; Complete Time: 19:23 [facility] 10/05 18:19 Order name: IV Saline Lock; Complete Time: 19:23 [facility] 10/05 18:19 Order name: Labs collected and sent; Complete Time: 19:23 [facility] 10/05 18:19 Order name: O2 Per Protocol; Complete Time: 19:23 [facility] 10/05 18:19 Order name: O2 Sat Monitoring; Complete Time: 19:23 [facility] 10/06 05:03 Order name: CBC with Automated Diff EDMS 10/06 05:12 Order name: Comprehensive Metabolic Panel EDMS 10/06 05:12 Order name: Magnesium EDMS 10/06 08:46 Order name: Glucose, Ancillary Testing EDMS 10/06 10:49 Order name: Troponin I EDKY 10/06 11:46 Order name: Glucose, Ancillary Testing EDKY EC:36 Rate is 81 beats/min. Rhythm is regular. QRS [place] is Normal. [place] interval is normal. QRS carlos interval is normal. QT interval is normal. No Q waves. T waves are Normal. No ST changes noted. Clinical impression: Abnormal EKG without significant change and No evidence of ischemia. Administered Medications: 19:23 Drug: Rocephin (cefTRIAXone) 1 grams Route: IV; Rate: per protocol; Site: right wrist; kg 19:23 Follow up: IV Status: Completed infusion kg 19:57 Drug: Symsonia (HYDROcodone-acetaminophen) 10 mg-325 mg 1 tabs Route: PO; jm8 20:42 Follow up: Response: No adverse reaction jm8 Disposition Summary: 10/05/20 19:18 Hospitalization Ordered Hospitalization Status: Observation carlos Provider: Nimesh Barreto carlos Condition: Stable carlos Problem: new carlos Symptoms: have improved carlos Bed/Room Type: Standard carlos Location: Telemetry/MedSurg (observation)(10/06/20 10:53) Room Assignment: 209(10/06/20 10:53) Diagnosis - Pleural condition, unspecified - right carlos - Weakness carlos - Dyspnea carlos - End stage renal disease - on HD carlos - Unspecified combined systolic (congestive) and diastolic (congestive) heart failure carlos Forms: - Medication Reconciliation Form carlos - SBAR form carlos Signatures: Dispatcher [employer] [facility] Veronika Ireland RN RN Alessio Parry MD MD cha Smirch, Shelby, RN RN ss Garcia, Cindy, RN RN Fer Agarwal RN RN jm8 Belkis Kenny RN RN kg Corrections: (The following items were deleted from the chart) 18:53 18:20 CORONAVIRUS+MR.LAB.BRZ ordered. [facility] EDKY 21:36 19:18 Telemetry/MedSurg (observation) carlos :36 19:18 carlos 10/06 10:53 10/05 21:36 [facility] ER HOLD cg dw 10/06 10:53 10/05 21:36 ERHOLD- [facility]
[2020-10-05 19:37] LABS: Albumin 2.4 g/dL (3.4-5.0); Bilirubin Direct 0.2 mg/dL (0-0.2); Bilirubin Total 0.5 mg/dL (0.2-1.0); Magnesium 1.9 mg/dL (1.8-2.4); Potassium 3.9 mmol/L (3.5-5.1); Protein, Total 7.2 g/dL (6.4-8.2); Troponin (Emerg Dept Use Only) 0.05 ng/mL (0.0-0.045)
[2020-10-05] MEDS ORDERED: CEFTRIAXONE/SWI 1gm 1 GM/10 ML SYR ONE (19:40)
[2020-10-05] MEDS ORDERED: HYDROCODONE/APAP 10/325 TAB ONE (20:17)
--- NOTE | 2020-10-05 20:40 | P.HP ---
Certification for Inpatient Patient admitted to: Observation With expected LOS: <2 Midnights Patient will require the following post-hospital care: None Practitioner: I am a practitioner with admitting privileges, knowledge of patient current condition, hospital course, and medical plan of care. Services: Services provided to patient in accordance with Admission requirements found in Title 42 Section 412.3 of the Code of Federal Regulations Patient History Date of Service: 10/05/20 Primary Care Provider: None, nephrology Dr. Eng Reason for admission: Dyspnea History of Present Illness: 65-year-old female with history of ESRD on HD TTS, chronic diastolic congestive heart failure, CAD status post CABG, COPD, hypertension presents emergency department for shortness of breath, chest pain. Patient reports that she had dialysis today and it was completed, even after dialysis, patient called EMS for transportation to emergency department for further evaluation. Patient evaluated in the emergency department, labs significant for creatinine 1.66 GFR 31 glucose 148 BNP [id number] troponin 0.05 white blood count 6.7 chest x-ray demonstrates mild CHF versus volume overload pattern with right basilar atelectasis and pleural fluid which appears to be chronic in nature. Patient still mildly dyspneic/tachypneic on examination, ED provider wishes to admit under observation for further evaluation and management. Allergies morphine Allergy (Severe, Verified 04/26/20 23:39) Anaphylaxis vancomycin Allergy (Intermediate, Verified 04/26/20 23:39) Shortness of breath basil Allergy (Verified 04/26/20 23:39) Nausea/Vomiting tramadol Allergy (Verified 04/26/20 23:39) Nausea/Vomiting trazodone Allergy (Verified 04/26/20 23:39) Nausea/Vomiting nitroglycerin Adverse Reaction (Mild, Verified 04/26/20 23:39) Nausea/Vomiting Home Medications: Allopurinol 100 mg PO BID 06/13/20 Aspirin 81 mg PO DAILY 06/13/20 Atorvastatin Calcium [Lipitor] 40 mg PO BEDTIME 06/13/20 Clopidogrel Bisulfate [Plavix*] 75 mg PO DAILY 06/13/20 Fluticasone [Flovent Hfa 110*] 2 puff IN DAILY 06/13/20 Hydralazine [Apresoline*] 25 mg PO TID 06/13/20 carvediloL [Carvedilol] 6.25 mg PO BID 06/13/20 lisinopriL [Prinivil*] 5 mg PO DAILY 06/13/20 Cholestyramine (with Sugar) [Cholestyramine Packet] 1 packet PO DAILY PRN 06/14/20 Furosemide [Lasix*] 2 tab PO BID 06/14/20 Gabapentin [Neurontin*] 200 mg PO TID 06/14/20 Sertraline HCl 25 mg PO DAILY 06/14/20 Dicyclomine HCl 20 mg PO Q6HP PRN #30 07/19/20 Epoetin [Retacrit] 4,000 unit IV EVERY HD vial 07/19/20 Lactobacillus Acidophilus [Acidophilus] 1 each PO TID #90 capsule 07/19/20 Lipase/Protease/Amylase [Heather Turpin 12,000 Units Capsule] 3 cap PO TIDWM #270 cap 07/19/20 Medihoney [Medihoney Woundcare Gel*] 1 appl TOP TuThSa@0900 #1 tube 07/19/20 Sevelamer Carbonate [Renvela*] 800 mg PO TIDWM #90 tablet 07/19/20 Codeine/APAP [Tylenol #3*] 1 tab PO Q6H PRN 3 Days #10 tab 09/23/20 - Past Medical/Surgical History Diabetic: Yes -: COPD -: Hypertension -: CAD, CABG x4 vessels (August 2017) -: Diabetes mellitus type 2, insulin-dependent -: Chronic combined systolic/diastolic CHF -: Uterine cancer status post hysterectomy -: Chronic renal disease, stage IV -: TB as a child - Negative 2017 -: Hyperlipidemia -: Iron deficiency anemia -: WEST -: ESRD on HD -: Rectal surgery -: Hysterectomy -: Cholecystectomy -: Gastric surgery -: Appendectomy -: CABG x4 vessel -: RLE Femoral popliteal bypass -: Left great toe amputation Psychosocial/ Personal History: The patient is a . Her son lives with her. She has 3 children. - Family History Brother -: Heart disease, Hypertension, Cancer Notes: Father -: Heart disease, Lung disease, Cancer Notes: - Prostate surgery - Hemorrhage Mother -: GI disease Notes: Sister -: Heart disease Notes: - Respiratory failure - Social History Smoking Status: Former smoker Alcohol use: No CD- Drugs: No Caffeine use: Yes Review of Systems Respiratory: Cough, Shortness of Breath Cardiovascular: Chest Pain Physical Examination - Physical Exam General: Alert, In no apparent distress, Oriented x3 HEENT: Atraumatic, PERRLA, Mucous membr. moist/pink, EOMI, Sclerae nonicteric Neck: Supple, 2+ carotid pulse no bruit, No LAD, JVD distended Respiratory: Diminished, Other (Mild tachypnea/dyspnea) Cardiovascular: Regular rate/rhythm, Normal S1 S2 Capillary refill: <2 Seconds Gastrointestinal: Normal bowel sounds, No tenderness Musculoskeletal: No tenderness Integumentary: No rashes Neurological: Normal speech, Normal strength at 5/5 x4 extr, Normal tone, Normal affect - Studies Laboratory Data (last 24 hrs) 10/05/20 18:50: PT 13.5 H, INR 1.17 10/05/20 18:50: WBC 6.70, Hgb 10.9 L, Hct 33.7 L, Plt Count 263 10/05/20 18:50: Sodium 137, Potassium 3.9, BUN 17, Creatinine 1.66 H D, Glucose 148 H, Magnesium 1.9, Total Bilirubin 0.5, AST 14 L, ALT 10 L, Alkaline Phosph atase 116 Microbiology Data (last 24 hrs): 10/05/20 19:20 Nasopharnyx Influenza Type A Antigen Screen - Final 10/05/20 19:20 Nasopharnyx Influenza Type B Antigen Screen - Final Assessment and Plan - Plan Assessment Dyspnea, chest pain, volume overload secondary to acute on chronic combined sys tolic/diastolic congestive heart failure complicated with ESRD on HD TTS CAD s/p CABG 2018, multiple stents, recent heart catheterization in May with balloon angioplasty of the left circumflex Diabetes mellitus type 2 Chronic venous hypertension with ulcerations to bilateral lower extremities COPD Hyperlipidemia Iron-deficiency anemia WEST Plan Dyspnea, chest pain, volume overload secondary to acute on chronic combined systolic/diastolic congestive heart failure complicated with ESRD on HD TTS: Nephrology consulted for additional assistance, may she may require additional dialysis tomorrow. Did complete dialysis today but still with shortness of breath, JVD, chest pain. Troponin 0.05, will trend. Monitor on telemetry. Continue home medications, DVT prophylaxis heparin 5000 subcutaneous twice daily. Anticipate clinical improvement next 24 hr. CAD s/p CABG 2018, multiple stents, recent heart catheterization in May with balloon angioplasty of the left circumflex: Will trend troponins, monitor on telemetry. Patient with recent cardiology consult without recommended intervention. Will consult cardiology as necessary. Diabetes mellitus type 2: A.c. HS Accu-Cheks, sliding scale insulin therapy. Chronic venous hypertension with ulcerations to bilateral lower extremities: Wound therapy consult in place, patient sees wound healing Clinic. Stable. COPD: Provide patient with p.r.n. inhaler. Stable this time. No expiratory wheezing noted. Hyperlipidemia: Continue home med Iron-deficiency anemia: Transfuse to maintain hemoglobin greater than 8. Stable this time. WEST : Patient wears oxygen to sleep. Will provide. Discharge Plan: Home Plan to discharge in: 24 Hours - Advance Directives Does patient have a Living Will: Yes Does patient have a Durable POA for Healthcare: Yes - Code Status/Comfort Care Code Status Assessed: Yes (Full code) Critical Care: No Time Spent Managing Pts Care (In Minutes): 55
[2020-10-05] MEDS ORDERED: ONDANSETRON 4 MG/2 ML VIAL IV PRN (23:33)
[2020-10-05] MEDS ORDERED: HYDROCODONE/APAP 10/325 TAB PO PRN (23:33)
[2020-10-05] MEDS: HEPARIN 5000 UNIT/ML 1 ML VIAL SQ SCH (23:33)
[2020-10-05] MEDS ORDERED: ACETAMINOPHEN 500 MG TAB PO PRN (23:33)
[2020-10-05] MEDS: INSULIN -REGULAR HUMAN 50 UNIT/0.5 ML ML SQ SCH (23:33)
[2020-10-06] MEDS ORDERED: MELATONIN 5 MG TABLET PO PRN (00:01)
[2020-10-06] MEDS ORDERED: HEPARIN 5000 UNIT/ML 1 ML VIAL ONE ×2 (00:43→08:28)
[2020-10-06] MEDS ORDERED: MELATONIN 5 MG TABLET PO ONE (01:04)
[2020-10-06 01:47] VITALS: BMI 26.2
[2020-10-06 05:00] LABS: Absolute Lymphocytes (CBC) 1.5 K/uL (0.7-4.9); Basophils % 1.2 % (0-1.3); Hematocrit 33.6 % (36.0-45.0); Lymphocytes % 23.7 % (15.3-44.8); MPV 6.8 fL (7.6-11.3); RBC Red Blood Cell Count 3.85 M/uL (3.86-4.86)
[2020-10-06 05:12] LABS: Albumin 2.3 g/dL (3.4-5.0); Bilirubin Total 0.3 mg/dL (0.2-1.0); Potassium 4.6 mmol/L (3.5-5.1); Protein, Total 6.9 g/dL (6.4-8.2)
--- NOTE | 2020-10-06 06:03 | P.CNS ---
Date of Consult: 10/06/20 Reason for Consult: ESRD Requesting Physician: Nimesh Barreto Primary Care Provider: None, nephrology Dr. Eng Chief Complaint: Dyspnea History of Present Illness: 65F w/ PMHx of ESRD on HD TTS, chronic systolic& diastolic CHF, CAD s/p CABG, COPD, Htn, HLD, WEST, & BLE chronic venous stasis ulcers, who p/w chest pain & SOB, admitted for further eval. She reported developing the symptoms right after dialysis. In the ER she was noted to be tachypneic, & CXR showed mild CHF. Allergies morphine Allergy (Severe, Verified 04/26/20 23:39) Anaphylaxis vancomycin Allergy (Intermediate, Verified 04/26/20 23:39) Shortness of breath basil Allergy (Verified 04/26/20 23:39) Nausea/Vomiting tramadol Allergy (Verified 04/26/20 23:39) Nausea/Vomiting trazodone Allergy (Verified 04/26/20 23:39) Nausea/Vomiting nitroglycerin Adverse Reaction (Mild, Verified 04/26/20 23:39) Nausea/Vomiting Home Medications: Allopurinol 100 mg PO BID 06/13/20 Aspirin 81 mg PO DAILY 06/13/20 Atorvastatin Calcium [Lipitor] 40 mg PO BEDTIME 06/13/20 Clopidogrel Bisulfate [Plavix*] 75 mg PO DAILY 06/13/20 Fluticasone [Flovent Hfa 110*] 2 puff IN DAILY 06/13/20 Hydralazine [Apresoline*] 25 mg PO TID 06/13/20 carvediloL [Carvedilol] 6.25 mg PO BID 06/13/20 lisinopriL [Prinivil*] 5 mg PO DAILY 06/13/20 Cholestyramine (with Sugar) [Cholestyramine Packet] 1 packet PO DAILY PRN 06/14/20 Furosemide [Lasix*] 2 tab PO BID 06/14/20 Gabapentin [Neurontin*] 200 mg PO TID 06/14/20 Sertraline HCl 25 mg PO DAILY 06/14/20 Dicyclomine HCl 20 mg PO Q6HP PRN #30 07/19/20 Lactobacillus Acidophilus [Acidophilus] 1 each PO TID #90 capsule 07/19/20 Lipase/Protease/Amylase [Heather Turpin 12,000 Units Capsule] 3 cap PO TIDWM #270 cap 07/19/20 Medihoney [Medihoney Woundcare Gel*] 1 appl TOP TuThSa@0900 #1 tube 07/19/20 Sevelamer Carbonate [Renvela*] 800 mg PO TIDWM #90 tablet 07/19/20 Codeine/APAP [Tylenol #3*] 1 tab PO Q6H PRN 3 Days #10 tab 09/23/20 - Past Medical/Surgical History Diabetic: Yes -: COPD -: Hypertension -: CAD, CABG x4 vessels (August 2017) -: Diabetes mellitus type 2, insulin-dependent -: Chronic combined systolic/diastolic CHF -: Uterine cancer status post hysterectomy -: Chronic renal disease, stage IV -: TB as a child - 2017 -: Hyperlipidemia -: Iron deficiency anemia -: WEST -: ESRD on HD -: Rectal surgery -: Hysterectomy -: Cholecystectomy -: Gastric surgery -: Appendectomy -: CABG x4 vessel -: RLE Femoral popliteal bypass -: Left great toe amputation Psychosocial/ Personal History: The patient is a . Her son lives with her. She has 3 children. - Family History Brother Medical History: Heart disease, Hypertension, Cancer Notes: Father Medical History: Heart disease, Lung disease, Cancer Notes: - Prostate surgery - Hemorrhage Mother Medical History: GI disease Notes: Sister Medical History: Heart disease Notes: - Respiratory failure - Social History Smoking Status: Unknown if ever smoked Alcohol use: No CD- Drugs: No Caffeine use: Yes Review of Systems General: Weakness Eyes: Unremarkable ENT: Unremarkable Respiratory: Shortness of Breath Cardiovascular: Chest Pain Gastrointestinal: Unremarkable Genitourinary: Unremarkable Musculoskeletal: As per HPI Integumentary: As per HPI Neurological: Weakness Lymphatics: Unremarkable Physical Examination Temp Pulse Resp BP Pulse Ox 97.8 F 73 18 154/73 H 97 10/06/20 04:00 10/06/20 04:00 10/06/20 04:00 10/06/20 04:00 10/06/20 04:00 General: Other (Frail-looking) HEENT: Atraumatic, Normocephalic Neck: Supple, JVD not distended Respiratory: Normal air movement Cardiovascular: No rubs, No murmurs Gastrointestinal: Soft and benign, Non-distended Musculoskeletal: No warmth Integumentary: No warmth Neurological: Normal speech, Normal tone Laboratory Data (last 24 hrs) 10/05/20 18:50: PT 13.5 H, INR 1.17 10/05/20 18:50: WBC 6.70, Hgb 10.9 L, Hct 33.7 L, Plt Count 263 10/05/20 18:50: Sodium 137, Potassium 3.9, BUN 17, Creatinine 1.66 H D, Glucose 148 H, Magnesium 1.9, Total Bilirubin 0.5, AST 14 L, ALT 10 L, Alkaline Phosphatase 116 Conclusions/Impression: # ESRD on HD TTS at [facility] Received HD yesterday PUF today x 2 hrs, 2-3L off HD again tomorrow per TTS sked HD access: TDC EDW: 74.5 kgs Renal vitamin daily Renal diet Monitor renal panel # SOB; Chest Pain; CHF; CAD s/p CABG; Htn Further eval/mngt per other services Continue current BP medication regimen # Anemia Cont BRONWYN Monitor H/H # Renal osteodystrophy Monitor calcium and phosphorus Cont Renvela # Chronic BLE venous stasis ulcers Wound care # Dispo Ok to dc after PUF today
--- NOTE | 2020-10-06 06:19 | P.DS ---
Admission Date: 10/05/20 Discharge Date: 10/06/20 Primary Care Provider: None, nephrology Dr. Eng Disposition: ROUTINE DISCHARGE Discharge Condition: GOOD Reason for Admission: Dyspnea Consultations: Nephrology-Dr. Ayala Procedures: CXR: COMPARISON: Chest Single View dated 09/21/2020; Chest Single View dated 07/10/2020; Chest Single View dated 06/27/2020; Chest Single View dated 06/13/2020; Chest Single View dated 10/16/2019 FINDINGS: Portable technique limits examination quality. Mild interstitial pulmonary edema seen. Right basilar atelectasis and pleural fluid appears chronic. The heart is moderately enlarged with unchanged position of the venous catheter. Sternotomy wires present. IMPRESSION: Mild CHF versus volume overload pattern. Medical problem list: Dyspnea, chest pain, volume overload secondary to acute on chronic combined systolic/diastolic congestive heart failure complicated with ESRD on HD TTS CAD s/p CABG 2017, multiple stents, recent heart catheterization in May with balloon angioplasty of the left circumflex Chronic venous hypertension with ulcerations to bilateral lower extremities COPD on chronic oxygen Hyperlipidemia Iron-deficiency anemia Chronic pain GERD WEST Brief History of Present Illness: 65-year-old female with history of ESRD on HD TTS, chronic diastolic congestive heart failure, CAD status post CABG, COPD, hypertension presents emergency department for shortness of breath, chest pain. Patient reports that she had dialysis today and it was completed, even after dialysis, patient called EMS for transportation to emergency department for further evaluation. Patient evaluated in the emergency department, labs significant for creatinine 1.66 GFR 31 glucose 148 BNP 27529 troponin 0.05 white blood count 6.7 chest x-ray demonstrates mild CHF versus volume overload pattern with right basilar atelectasis and pleural fluid which appears to be chronic in nature. Patient still mildly dyspneic/tachypneic on examination, ED provider wishes to admit under observation for further evaluation and management. Hospital Course: She presented with shortness of breath and chest pain secondary to volume overload related to end-stage renal disease and acute on chronic combined systolic/diastolic CHF. Patient was admitted for treatment. Patient received hemodialysis with improvement. At discharge the patient remained stable and back to baseline. At discharge she will continue with home oxygen to maintain sats above 93%. Patient will continue with home health and physical therapy at discharge. Patient will continue with her current medicationLasix 40 mg 1 pill twice daily. Recommend to monitor her weight daily. If her weight increases by more than 5 pounds she is to contact her PCP or nephrology for further recommendation. Education on CHF provided. Patient will continue her other medications including lisinopril, carvedilol. Recommend follow-up with her PCP in 1 week to [place] hospitalization. Patient with underlying conditions including CAD with prior CABG 2017 with recent heart catheterization in May requiring balloon angioplasty of the left circumflex, hypertension and hyperlipidemia. At discharge patient will continue with her current medicationslisinopril 5 mg daily, Lasix 40 mg 1 pill twice daily, hydralazine 25 mg 1 pill three times a day, carvedilol 6.25 mg 1 pill twice daily, Plavix 75 mg daily, aspirin 81 mg daily, and Lipitor 40 mg daily. At discharge recommend to continue 1500 cc/day fluid restriction and low-salt diet. Recommend to monitor her weight daily. If her weight increases by more than 5 pounds she is to contact her PCP or nephrology to further adjust her medication. Patient with underlying COPD. She will continue with oxygen to maintain sats above 93%. Patient currently on home oxygen at 2 L. At discharge she will continue with her current medications including Flovent 2 puffs daily and albuterol 2 puffs three times a day as needed for shortness of breath. Patient with end-stage renal disease on hemodialysis. At discharge she will continue with her current medications including Renvela 800 mg three times a day and allopurinol 100 mg 1 pill twice daily. Future medications were to be r enally dosed. Recommend to recheck labBMP in 1 week. Patient will continue with dialysis as directed. Patient with chronic pain. At discharge we will continue with Tylenol 3 three times a day as needed for pain. Patient will also continue with Neurontin 200 mg three times a day. Recommend follow-up with pain management to further monitor and adjust medication. Patient with GERD and irritable bowel. At discharge she will continue with her medications including cholestyramine daily, dicyclomine 20 mg every 6 hours as needed, and Pepcid 20 mg daily. Vital Signs/Physical Exam: Temp Pulse Resp BP Pulse Ox 97.8 F 73 18 154/73 H 97 10/06/20 04:00 10/06/20 04:00 10/06/20 04:00 10/06/20 04:00 10/06/20 04:00 General: Alert, In no apparent distress, Oriented x3, Cooperative HEENT: Atraumatic Neck: Supple Respiratory: Clear to auscultation bilaterally, Normal air movement Cardiovascular: Normal pulses, Regular rate/rhythm Gastrointestinal: Normal bowel sounds, No tenderness, No masses, No rebound, No guarding Musculoskeletal: No erythema, No tenderness, No warmth Integumentary: No tenderness/swelling Neurological: Normal speech, Normal strength at 5/5 x4 extr, Normal tone, Normal affect Laboratory Data at Discharge: WBC 6.40 K/uL (4.3-10.9) 10/06/20 04:30 Hgb 10.7 g/dL (12.0-15.0) L 10/06/20 04:30 Hct 33.6 % (36.0-45.0) L 10/06/20 04:30 Plt Count 252 K/uL (152-406) 10/06/20 04:30 PT 13.5 SECONDS (9.5-12.5) H 10/05/20 18:50 INR 1.17 10/05/20 18:50 Sodium 137 mmol/L (136-145) 10/06/20 04:30 Potassium 4.6 mmol/L (3.5-5.1) 10/06/20 04:30 BUN 21 mg/dL (7-18) H 10/06/20 04:30 Creatinine 1.99 mg/dL (0.55-1.3) H 10/06/20 04:30 Glucose 127 mg/dL (74-106) H 10/06/20 04:30 Magnesium 2.0 mg/dL (1.8-2.4) 10/06/20 04:30 Total Bilirubin 0.3 mg/dL (0.2-1.0) 10/06/20 04:30 AST 16 U/L (15-37) 10/06/20 04:30 ALT 10 U/L (12-78) L 10/06/20 04:30 Alkaline Phosphatase 115 U/L (45-117) 10/06/20 04:30 Troponin I 0.07 ng/mL (0.0-0.045) H 10/06/20 00:45 Home Medications: Allopurinol 100 mg PO BID 06/13/20 Aspirin 81 mg PO DAILY 06/13/20 Atorvastatin Calcium [Lipitor] 40 mg PO BEDTIME 06/13/20 Clopidogrel Bisulfate [Plavix*] 75 mg PO DAILY 06/13/20 Fluticasone [Flovent Hfa 110*] 2 puff IN DAILY 06/13/20 Hydralazine [Apresoline*] 25 mg PO TID 06/13/20 carvediloL [Carvedilol] 6.25 mg PO BID 06/13/20 lisinopriL [Prinivil*] 5 mg PO DAILY 06/13/20 Cholestyramine (with Sugar) [Cholestyramine Packet] 1 packet PO DAILY PRN 06/14/20 Furosemide [Lasix*] 2 tab PO BID 06/14/20 Gabapentin [Neurontin*] 200 mg PO TID 06/14/20 Sertraline HCl 25 mg PO DAILY 06/14/20 Dicyclomine HCl 20 mg PO Q6HP PRN #30 07/19/20 Lactobacillus Acidophilus [Acidophilus] 1 each PO TID #90 capsule 07/19/20 Lipase/Protease/Amylase [Heather Turpin 12,000 Units Capsule] 3 cap PO TIDWM #270 cap 07/19/20 Medihoney [Medihoney Woundcare Gel*] 1 appl TOP TuThSa@0900 #1 tube 07/19/20 Sevelamer Carbonate [Renvela*] 800 mg PO TIDWM #90 tablet 07/19/20 Codeine/APAP [Tylenol #3*] 1 tab PO Q6H PRN 3 Days #10 tab 09/23/20 Physician Discharge Instructions: She presented with shortness of breath and chest pain secondary to volume overload related to end-stage renal disease and acute on chronic combined systolic/diastolic CHF. Patient was admitted for treatment. Patient received hemodialysis with improvement. At discharge the patient remained stable and back to baseline. At discharge she will continue with home oxygen to maintain sats above 93%. Patient will continue with home health and physical therapy at discharge. Patient will continue with her current medicationLasix 40 mg 1 pill twice daily. Recommend to monitor her weight daily. If her weight increases by more than 5 pounds she is to contact her PCP or nephrology for further recommendation. Education on CHF provided. Patient will continue her other medications including lisinopril, carvedilol. Recommend follow-up with her PCP in 1 week to [place] hospitalization. Patient with underlying conditions including CAD with prior CABG 2017 with recent heart catheterization in May requiring balloon angioplasty of the left circumflex, hypertension and hyperlipidemia. At discharge patient will continue with her current medicationslisinopril 5 mg daily, Lasix 40 mg 1 pill twice daily, hydralazine 25 mg 1 pill three times a day, carvedilol 6.25 mg 1 pill twice daily, Plavix 75 mg daily, aspirin 81 mg daily, and Lipitor 40 mg daily. At discharge recommend to continue 1500 cc/day fluid restriction and low-salt diet. Recommend to monitor her weight daily. If her weight increases by more than 5 pounds she is to contact her PCP or nephrology to further adjust her medication. Patient with underlying COPD. She will continue with oxygen to maintain sats above 93%. Patient currently on home oxygen at 2 L. At discharge she will continue with her current medications including Flovent 2 puffs daily and albuterol 2 puffs three times a day as needed for shortness of breath. Patient with end-stage renal disease on hemodialysis. At discharge she will continue with her current medications including Renvela 800 mg three times a day and allopurinol 100 mg 1 pill twice daily. Future medications were to be renally dosed. Recommend to recheck labBMP in 1 week. Patient will continue with dialysis as directed. Patient with chronic pain. At discharge we will continue with Tylenol 3 three times a day as needed for pain. Patient will also continue with Neurontin 200 mg three times a day. Recommend follow-up with pain management to further monitor and adjust medication. Patient with GERD and irritable bowel. At discharge she will continue with her medications including cholestyramine daily, dicyclomine 20 mg every 6 hours as needed, and Pepcid 20 mg daily. Diet: AHA Activity: Fall precautions Followup: NONE,NONE [Primary Care Provider] - Time spent managing pt's care (in minutes): 55
[2020-10-06] MEDS: INSULIN -REGULAR HUMAN 50 UNIT/0.5 ML ML SQ SCH ×2 (07:30→11:30)
[2020-10-06] MEDS ORDERED: LIPASE/PROTEASE/AMYLASE CAP PO SCH (08:00)
[2020-10-06] MEDS ORDERED: SEVELAMER CARBONATE 800 MG TABLET PO SCH (08:00)
[2020-10-06] MEDS ORDERED: CHOLESTYRAMINE/ASP 4 GM/PKT PO PRN (08:04)
[2020-10-06] MEDS ORDERED: DICYCLOMINE HCL 10 MG CAP PO PRN (08:07)
[2020-10-06] MEDS ORDERED: HYDRALAZINE HCL 25 MG TABLET ONE (08:26)
[2020-10-06] MEDS ORDERED: carvediloL 6.25 MG TAB ONE (08:28)
[2020-10-06] MEDS ORDERED: CLOPIDOGREL 75 MG TABLET ONE (08:28)
[2020-10-06] MEDS ORDERED: ASPIRIN 81 MG CHEWABLE TABLET ONE (08:28)
[2020-10-06] MEDS ORDERED: CLOPIDOGREL 75 MG TABLET PO SCH (09:00)
[2020-10-06] MEDS ORDERED: FLUTICASONE 110 MCG/PUFF 12 GM INH IH SCH (09:00)
[2020-10-06] MEDS ORDERED: ASPIRIN 81 MG CHEWABLE TABLET PO SCH (09:00)
[2020-10-06] MEDS ORDERED: GABAPENTIN 100 MG CAP PO SCH (09:00)
[2020-10-06] MEDS ORDERED: HYDRALAZINE HCL 25 MG TABLET PO SCH (09:00)
[2020-10-06] MEDS ORDERED: PNEUMOCOCCAL VACCINE 0.5 ML IMVAC ONE (09:00)
[2020-10-06] MEDS ORDERED: SERTRALINE HCL 50 MG TAB PO SCH (09:00)
[2020-10-06] MEDS ORDERED: carvediloL 6.25 MG TAB PO SCH (09:00)
[2020-10-06] MEDS ORDERED: LACTOBACILLUS/ACIDOPHILUS TAB PO SCH (09:00)
[2020-10-06] MEDS: HEPARIN 5000 UNIT/ML 1 ML VIAL SQ SCH (09:00)
[2020-10-06] MEDS ORDERED: allopurinoL 100 MG TAB PO SCH (09:00)
[2020-10-06] MEDS ORDERED: FLOVENT 220 MCG INHALER IH SCH (09:00)
[2020-10-06 10:56] VITALS: O2SAT 97
[2020-10-06] MEDS ORDERED: HYDROCODONE/APAP 10/325 TAB ONE (11:50)
[2020-10-06] MEDS ORDERED: DIPHENHYDRAMINE 50 MG/ML VIAL IV ONE (13:02)
[2020-10-06] MEDS ORDERED: DIPHENHYDRAMINE 50 MG/ML VIAL IV PRN (13:03)
[2020-10-06 14:46] VITALS: BP 155/70; TEMP 96.8
[2020-10-06] MEDS ORDERED: ATORVASTATIN 40 MG TAB PO SCH (21:00)
--- NOTE | 2020-10-07 08:04 | EKG ---
Test Date: 2020-10-05 Test Time: 19:05:13 Adz Worker: SHIRIN MEASUREMENT RESULTS: Intervals: Rate: 81 ID: [id number] QRSD: 106 QT: 420 QTc: 487 Rover: P: ID: [id number] QRS: 213 T: 149 INTERPRETIVE STATEMENTS: Normal sinus rhythm Right superior axis deviation Low voltage QRS Incomplete right bundle branch block Cannot rule out Anterior infarct, age undetermined Abnormal ECG Compared to ECG 09/21/2020 17:59:09 Right superior axis now present Low QRS voltage now present Right-axis deviation no longer present Myocardial infarct finding still present Electronically Signed On 10-07-20 08:03:07 CDT by Taj Raymond
[2020-10-07] MEDS ORDERED: MEDIHONEY 44 ML TOPICAL TUBE TOP SCH (09:00)
== END 2020-10-06 19:29 | disposition home health service (06) ==
LOC: ER 18:05 → ERHOLD 20:00 → 2ND 10-06 11:35
PROVIDERS: ADMIT Family Medicine; ATTEND Family Medicine
DX: I13.2 Hypertensive heart and chronic kidney disease with heart failure and with stage 5 chronic kidney disease, or end stage renal disease (principal); I50.43 Acute on chronic combined systolic (congestive) and diastolic (congestive) heart failure; N18.6 End stage renal disease; Z99.2 Dependence on renal dialysis; I25.10 Atherosclerotic heart disease of native coronary artery without angina pectoris; Z95.5 Presence of coronary angioplasty implant and graft; Z20.822 Contact with and (suspected) exposure to COVID-19; Z95.1 Presence of aortocoronary bypass graft; L97.929 Non-pressure chronic ulcer of unspecified part of left lower leg with unspecified severity; L97.919 Non-pressure chronic ulcer of unspecified part of right lower leg with unspecified severity; J44.9 Chronic obstructive pulmonary disease, unspecified; Z99.81 Dependence on supplemental oxygen; E78.5 Hyperlipidemia, unspecified; D50.9 Iron deficiency anemia, unspecified; K21.9 Gastro-esophageal reflux disease without esophagitis; G47.33 Obstructive sleep apnea (adult) (pediatric); G89.29 Other chronic pain; K58.9 Irritable bowel syndrome, unspecified; I87.2 Venous insufficiency (chronic) (peripheral); E11.22 Type 2 diabetes mellitus with diabetic chronic kidney disease; Z79.4 Long term (current) use of insulin; Z85.42 Personal history of malignant neoplasm of other parts of uterus; Z89.412 Acquired absence of left great toe; D63.1 Anemia in chronic kidney disease; N25.0 Renal osteodystrophy; Z87.891 Personal history of nicotine dependence
CPT/HCPCS: 93005; 87040 ×2; 85025 ×2; 80048; 36415; 83735 ×2; 85610; 82947 ×3; 80076; 83605; 84484 ×3; 80053; 83880; 87804 ×2; 71045; 90935; 96374; 99284; U0003; J1200; J1644 ×3; J0696; G0378 ×3

== ENCOUNTER 2020-10-10 17:42 | Inpatient (IN) | payer OTHER ==
--- OUTSIDE RECORDS SUMMARY | 2020-10-10 17:54 | XMS REPORT | Continuity of Care Document ---
:1955 Author Organization [facility] t Address [address] [place] [address] Care Team Providers Name Role Phone Landy Rendon Primary Care Physician Babatunde PIERRE Attending Clinician Mk PIERRE Attending Clinician Lisa Mohamud MD Attending Clinician LISA MOHAMUD Attending Clinician Unavailable Kj PIERRE, Merfanta Attending Clinician Urmila PIERRE, Adehever Attending Clinician Neeta PIERRE, Thy Attending Clinician Belkis PIERRE, Taj Attending Clinician Monica VANEGAS Attending Clinician Unavailable PRABHJOT DREW Attending Clinician Unavailable OLAYINKA Attending Clinician Unavailable LISA VERDUZCO Attending Clinician Unavailable MAGGIE MCCONNELL Attending Clinician Unavailable Mary FIERRO Attending Clinician Unavailable Mk PIERRE Admitting Clinician LISA MOHAMUD Admitting Clinician Unavailable BERTA BANERJEE Admitting Clinician Unavailable LISA VERDUZCO Admitting Clinician Unavailable ALMANZA RAMU, MAGGIE Admitting Clinician Unavailable Mary FIERRO Admitting Clinician Unavailable Payers Payer Name Policy Type Policy Effective Date Expiration Date Sour ce Cassie ALMANZA [id number] [facility] MEDICAIDMEDICAID 00:00:00 - Medica nicolle [id number] Ce nter 2-Present Problems Condition Condition Condition [...] [facility]ukes - injury) injury) 00:00: Medical 00 [facility] Chronic Chronic Disease Active [facility] kidney kidney 2-21 [facility] - disease, disease, 00:00: Medica l stage 3 stage 3 00 [facility] CAD CAD Disease Active Overview: [facility] (coronary (coronary 2-20 S/p CABG- L ukes - artery artery 00:00: PRITCHETT-LAD, Medical disease) disease) 00 SVG-PDA,r Matthew ter amus,OM3 on 05/20/17 Atheroscle Atheroscle Disease Active Overview : [facility] rosis of rosis of 2-19 [facility] [place] 00:[place]: Medical artery of artery of 00 Cent er extremity extremity with with ulceration ulceration Acute CHF Acute CHF Disease Active [facility] 2[facility]14 [facility] - 00:00: Medical 00 [facility] COPD COPD Disease Active [facility] (chronic (chronic 2-14 [facility] - obstructiv obstructiv 00:00: Nh dical e e 00 Center pulmonary pulmonary disease) disease) Controlled Controlled Disease Active [facility] type 2 type 2 2-14 [facility] - diabetes diabetes 00:00: Medica l mellitus mellitus 00 Center with with care companion care companion y y disorder, disorder, with with long-term long-term current current use of use of insulin insulin Smoker Smoker Disease Active [facility]14 [facility] - 00:00: Medical 00 [place] Frequent Frequent Disease Active [facility] t [...] d COPD d COPD Clinics 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 [facility] current current [facility] - use of use of Memoria insulin insulin l Outpati ent Clinics History of History of Problem Active [facility] stroke stroke [facility] - [facility] 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2 [...] Vomiting 2-12 [facility] - 00:00: Medical 00 [place] Morphine Propensi Active Anaphylaxis [facility] ty to 04-21 [facility] - adverse 00:00: Medical reaction 00 [facility] s Nitrogly Propensi Active Nausea And [address] [facility] cerin ty to Vomiting 04-21 ONLY [facility] - adverse 00:00: Medical reaction 00 [facility] s Vancomyc Propensi Active Nausea And [facility] in ty to Vomiting 04-21 [facility] - Analogue adverse 00:00: Medical s reaction 00 [facility] s Amoxicil Propensi Active Diarrhea [facility] kenzie-Pot ty to 04-21 [facility] - Clavulan adverse 00:00: Medical ate reaction 00 [facility] s Basil Propensi Active Nausea Only [facility] ty to 04-21 [facility] - adverse 00:00: Medical reaction 00 [facility] s Vancomyc Adverse Active vomiting [facility] t in HCl Reaction [facility] Nitrogly Adverse Active vomiting [facility] t cerin Reaction [facility] Morphine Adverse Active headache, [facility] Sulfate Reaction breathing Luke s - Memoria l [facility] Clindamy Adverse Active vomiting [facility] t riley HCl Reaction [facility] Family History Family Member Diagnosis Comments Start Date Stop Date Source Natural father COPD [facility] Natural father Cancer [facility] Natural father Hypertension [facility] Natural mother No Known Problem [facility] Natural sister Asthma [facility] Natural sister COPD [facility] Social History Social Habit Start Date Stop Date Quantity Comments Source Sex Assigned At [facility] Cigarettes smoked 2019-12-31 2019-12-[address] [facility] - current (pack per 00:00:00 00:00:00 [facility] day) - Reported Cigarette 2019-12-31 2019-12-31 [facility] pack-years 00:00:00 00:00:00 [facility] Tobacco use and 2019-12-31 2019-12-31 Never used [facility] - exposure 00:00:00 00:00:00 [facility] Alcohol intake 2019-12-31 2019-12-31 Current [facility] - 00:00:00 00:00:00 non-drinker of Medical Ce nter alcohol (finding) History of tobacco 2017-05-12 Current sm[facility] - use 00:00:00 [facility] Smoking Status Start Date Stop Date Source Former smoker 2019-12-31 00:00:00 2019-12-31 00:00:00 [facility] Medications Ordered Filled Start Stop Current Ordering Indication Dosage Frequency Signature Comments Components Source Medication Medication Date Date Medication? Clinician (SIG) Name Name mupirocin 2019-03 Yes QD Apply [facility] (BACTROBAN) 0-03 topically Lay [facility] - 2 % 10:49: daily. Medical ointment 00 [facility] collagenase 2019-03 Yes QD Apply [facility] (SANTYL) 0-03 topically [facility] - 250 units/g 10:49: daily. Medi marilin ointment 00 [facility] bumetanide 2019-03 Yes 2mg [id number] Take [address] (BUMEX) 2 0-03 [id number] by mouth 3 [facility] - MG tablet [...] tablet 11:03: 00:00 daily. Medical 18 :00 [facility] isosorbide 2019- No 30mg QD Take 30 [...] TAKE [address] HCl HCl Ajs TABLET BY Lukes - MOUTH Memoria EVERYDAY [...] MOUTH ONE Memoria TIME PER l WEEK [facility]ics Furosemide Furosemide Yes Franki [...] Jas UNITS [facility] - [facility] SKIN IN l THE Outpati MORNING ent Clinics HydrALAZINE HydrALAZINE Yes Franki TAKE [address] HCl HCl Jas TABLET BY Lukes - MOUTH Memoria THREE l TIMES A Outpati DAY ent Clinics Vital Signs Vital Name Observation Time Observation Value Comments Source Heart rate 2020-01-01 08:41:00 60 /min [facility] Respiratory rate 2020-01-01 08:41:00 18 /min [facility] Oxygen saturation in 2020-01-01 08:41:00 100 /min [facility] Arterial blood by Medical Ce nter Pulse oximetry Systolic blood 2020-01-01 08:32:00 162 mm[Hg] [facility] Diastolic blood 2020-01-01 08:32:00 73 mm[Hg] [facility] Body temperature 2020-01-01 07:41:00 36.56 Deanne [facility] Body weight 2019-12-30 04:28:00 78.2 kg [facility] BMI 2019-12-30 04:28:00 27.00 kg/m2 [facility] Body height 2019-12-25 21:05:00 170.2 cm [facility] Procedures Procedure Date / Time Performed Performing Clinician [facility] e REPORT OF PROCEDURE - 2020-01-05 08:40:02 Provider, Default [facility] ENDOSCOPY SCAN Scanning [facility] RHYTHM STRIP - SCAN 2020-01-05 08:31:43 Provider, Default [facility] RHYTHM STRIP - SCAN 2020-01-05 08:31:42 Provider, Default [facility] RHYTHM STRIP - SCAN 2020-01-05 08:31:40 Provider, Default [facility] CARDIAC CATH REPORT - 2020-01-05 08:31:15 Provider, Default [facility] CARDIAC CATH REPORT - 2020-01-05 08:31:13 ProviderRocco [facility] POCT-GLUCOSE METER 2020-01-01 06:33:00 Evens [facility]ruel [facility] COMPREHENSIVE METABOLIC 2020-01-01 05:37:00 JerichoLily [facility] CBC W/PLT COUNT & AUTO 2020-01-01 05:37:00 JerichoChloeu [facility] POCT-GLUCOSE METER 2019-12-31 20:50:00 Cade, Pat [facility] POCT-GLUCOSE METER 2019-12-31 18:00:00 Pat Mohamud [facility] POCT-GLUCOSE METER 2019-12-31 11:42:00 Pat Mohamud [facility] POCT-GLUCOSE METER 2019-12-31 06:29:00 Pat [facility]ud [facility] COMPREHENSIVE METABOLIC 2019-12-31 06:05:00 Lily Echavarria [facility] MAGNESIUM 2019-12-31 06:05:00 [facility] W/[facility]T COUNT & AUTO 2019-12-31 06:05:00 Lily Echavarria [facility] POCT-GLUCOSE METER 2019-12-30 20:13:00 Pat [facility]ud [facility] POCT-GLUCOSE METER 2019-12-30 16:26:00 [facility] SURGIC[facility] OB[facility]ED 2019-12-30 13:59:46 Evens [facility]ru[facility] + GRAM STAIN Medical Matthew ter ANAEROBIC CULTURE 2019-12-30 13:59:46 [facility] 2019-12-30 13:54:56 [facility] STAIN Medical Matthew ter ANAEROBIC CULTURE 2019-12-30 13:54:56 Pat Mohamud [facility] TISSUE EXAM 2019-12-30 13:38:00 Tala Santacruz [facility] I&D,BONE FOOT 2019-12-30 13:11:00 Tala Santacruz [facility] POCT-GLUCOSE METER 2019-12-30 11:39:00 [facility] POCT-GLUCOSE METER 2019-12-30 05:39:00 Pat Mohamud [facility] SARS-COV2/RT-PCR ([facility] & 2019-12-30 05:11:00 Pat Mohamud [facility] REF LABS) [facility] CBC W/PLT COUNT & AUTO 2019-12-30 05:09:00 OrangeLily [facility] COMPREHENSIVE METABOLIC 2019-12-30 05:09:00 [facility] POCT-GLUCOSE METER 2019-12-29 21:09:00 [facility] POCT-GLUCOSE METER 2019-12-29 11:10:00 Pat Mohamud [facility] HEMODIALYSIS INPATIENT 2019-12-29 08:12:17 Brandie Khan [facility] POCT-GLUCOSE METER 2019-12-29 06:10:00 [facility] CBC W/PLT COUNT & AUTO 2019-12-29 05:50:00 OrangeLily [facility] COMPREHENSIVE METABOLIC 2019-12-29 05:50:00 OrangeLily [facility] POCT-GLUCOSE METER 2019-12-28 20:37:00 [facility] POCT-GLUCOSE METER 2019-12-28 17:38:00 [facility] POCT-GLUCOSE METER 2019-12-28 13:12:00 Cade [facility] POCT-GLUCOSE METER 2019-12-28 05:43:00 Cade [facility] CBC W/PLT COUNT & AUTO 2019-12-28 04:41:00 OrangeLily [facility] DIFFERENTIAL [facility] COMPREHENSIVE METABOLIC 2019-12-28 04:41:00 OrangeChloeu [facility] ABD AO & LOWER EXT 2019-12-28 02:30:00 Sakina Tamayo [facility] - ANGIOS/ POSS PPI [facility] POCT-GLUCOSE METER 2019-12-27 20:32:00 Pat Mohamud [facility] MR LOWER EXTREMITY 2019-12-27 16:30:00 Jericho Lily [facility] - WITHOUT IV CONTRAST LEFT [facility] POCT-GLUCOSE METER 2019-12-27 14:06:00 Pat [facility] WOUND CULTURE + GRAM 2019-12-27 12:02:00 Annia Delgado [facility] POCT-GLUCOSE METER 2019-12-27 06:44:00 [facility] POCT-GLUCOSE METER 2019-12-27 05:49:00 Pat Mohamud [facility] CBC W/PLT COUNT & AUTO 2019-12-27 05:05:00 OrangeLily [facility] DIFFERENTIAL [facility] COMPREHENSIVE METABOLIC 2019-12-27 05:05:00 Orange Lily [facility] HEMODIALYSIS INPATIENT 2019-12-27 00:31:18 Brandie Khan [facility] POCT-GLUCOSE METER 2019-12-26 20:51:00 Pat Mohamud [facility] TRANSFUSION SERVICE 2019-12-26 18:02:44 Rocco Sepulveda [facility] REPORT - SCAN Scanning [facility] POCT-GLUCOSE METER 2019-12-26 16:42:00 [facility] CT/CTA AAA AND RUNOFF 2019-12-26 15:27:00 Sakina Tamayo [facility] POCT-GLUCOSE METER 2019-12-26 11:59:00 Pat Mohamud [facility] POCT-GLUCOSE METER 2019-12-26 06:09:00 [facility] CBC W/PLT COUNT & AUTO 2019-12-26 04:36:00 Orange Lily [facility] 2019-12-26 04:36:00 OrangeLily [facility] PREPARE LEUKO-REDUCED RBC 2019-12-25 23:54:00 Brandie Khan [facility] POCT-GLUCOSE METER 2019-12-25 20:51:00 Cade [facility] TRANSFUSION SERVICE 2019-12-25 18:04:44 Rocco Sepulveda [facility] REPORT - SCAN Scanning [facility] POCT-GLUCOSE METER 2019-12-25 17:01:00 Pat Mohamud [facility] POCT-GLUCOSE METER 2019-12-25 11:25:00 Pat Mohamud [facility] CBC W/PLT COUNT & AUTO 2019-12-25 05:59:00 Lily Echavarria [facility] 2019-12-25 05:59:00 Orange Lily [facility] POCT-GLUCOSE METER 2019-12-25 05:58:00 [facility] TRANSFUSE LEUKO-REDUCED 2019-12-24 19:06:17 Brandie Khan [facility] RED BLOOD CELLS [facility] POCT-GLUCOSE METER 2019-12-24 16:15:00 [facility] ABORH, MANUAL 2019-12-24 08:25:[address] [facility] POCT-GLUCOSE METER 2019-12-24 06:11:00 Cade [facility] TYPE AND SCREEN, 2019-12-24 06:08:00 Brandie Khan [facility] es - AUTOMATED [facility] CBC W/PLT COUNT & AUTO 2019-12-24 05:51:00 Lily Echavarria [facility] 2019-12-24 05:51:00 Lily Echavarria [facility] POCT-GLUCOSE METER 2019-12-23 21:23:00 Pat Mohamud [facility] POCT-GLUCOSE METER 2019-12-23 16:42:00 [facility] MR LOWER EXTREMITY JOINT 2019-12-23 15:34:00 Tala Santacruz [facility] - ONLY WITHOUT IV CONTRAST Medical Thompson LEFT MR BRAIN WITHOUT IV 2019-12-23 15:34:00 Lily Echavarria [facility] uk - CONTRAST [facility] POCT-GLUCOSE METER 2019-12-23 11:16:00 Pat Mohamud [facility] ARTERIAL DOPPLER LEGS 2019-12-23 09:38:00 Tala Santacruz [facility] BILATERAL [facility] AMMONIA 2019-12-23 04:05:00 Mariela Carrasco [facility] CBC W/PLT COUNT & AUTO 2019-12-23 04:00:00 OrangeLily [facility] 2019-12-23 04:00:00 OrangeLily [facility] SARS-COV2/RT-PCR ([facility] & 2019-12-23 03:59:00 Pat Mohamud [facility] - REF LABS) [facility] POCT-GLUCOSE METER 2019-12-22 20:34:00 Pat Mohamud [facility] POCT-GLUCOSE METER 2019-12-22 16:43:00 Pat Mohamud [facility] POCT-GLUCOSE METER 2019-12-22 11:31:00 Pat Mohamud [facility] POCT-GLUCOSE METER 2019-12-22 06:30:00 Pat [facility]ud [facility] CBC W/PLT COUNT & AUTO 2019-12-22 05:14:00 OrangeLily [facility] COMPREHENSIVE METABOLIC 2019-12-22 05:14:00 OrangeLily [facility] POCT-GLUCOSE METER 2019-12-21 20:26:00 Cade [facility] POCT-GLUCOSE METER 2019-12-21 17:22:00 Cade [facility] POCT-GLUCOSE METER 2019-12-21 12:35:00 Cade [facility] POCT-GLUCOSE METER 2019-12-21 07:20:00 Cade [facility] POCT-GLUCOSE METER 2019-12-21 05:52:00 Cade [facility] C-REACTIVE PROTEIN 2019-12-21 04:39:00 Annia Delgado [facility] CBC W/PLT COUNT & AUTO 2019-12-21 04:39:00 [facility] COMPREHENSIVE METABOLIC 2019-12-21 04:39:00 [facility] US ABDOMEN COMPLETE 2019-12-20 21:17:00 Sakina Chen [facility] POCT-GLUCOSE METER 2019-12-20 20:23:00 Cade [facility] POCT-GLUCOSE METER 2019-12-20 17:31:00 [facility] CT BRAIN WITHOUT IV 2019-12-20 16:04:00 [facility] AMMONIA 2019-12-20 14:41:00 [facility] BLOOD GAS, ARTERIAL 2019-12-20 14:28:00 [facility] XR FOOT 2 VIEWS LEFT 2019-12-20 11:55:00 Annia Delgado [facility] POCT-GLUCOSE METER 2019-12-20 11:28:00 Cade [facility] POCT-GLUCOSE METER 2019-12-20 06:20:00 Cade [facility] OCCULT BLOOD, STOOL 2019-12-20 06:19:00 [facility] PT/APTT 2019-12-20 05:06:00 [facility], [facility] FIBRINOGEN 2019-12-20 05:06:00 [facility] D-DIMER 2019-12-20 05:06:00 [facility] IRON, TIBC, % SAT. 2019-12-20 05:06:00 [facility], Sakina [facility] (WITHOUT FERRITIN) [facility] VIT[facility]IN B12 AND FOLATE 2019-12-20 05:06:00 [facility] RETICULOCYTE COUNT 2019-12-20 05:06:00 [facility] HAPTOGLOBIN 2019-12-20 05:06:00 [facility] TSH/FREE T4 IF INDICATED 2019-12-20 05:06:00 [facility] FERRITIN 2019-12-20 05:06:00 [facility], [facility] ANTI-NUCLEAR ANTIBODY 2019-12-20 05:06:00 [facility] (ROGER) [facility] KAPPA / LAMBDA LIGHT 2019-12-20 05:06:00 AprilSakina [facility] SERUM [facility] PROTEIN ELECTROPHORESIS, 2019-12-20 05:06:[address] [facility] PERIPHERAL BLOOD SMEAR - 2019-12-20 05:06:00 [facility] Sakina Iqba l [facility] - PATHOLOGIST REVIEW [facility] W/PLT COUNT & AUTO 2019-12-20 05:06:00 Marcial Chapa [facility] COMPREHENSIVE METABOLIC 2019-12-20 05:06:00 Marcial Chapa [facility] T4, FREE 2019-12-20 05:06:00 [facility] ROGER TITER AND PATTERN 2019-12-20 05:06:00 Sakina Chen [facility] POCT-GLUCOSE METER 2019-12-19 20:35:00 Evens Mohamudruel [facility] POCT-GLUCOSE METER 2019-12-19 16:06:00 Pat Mohamud [facility] HEMODIALYSIS INPATIENT 2019-12-19 16:02:09 Sharri Fernando [facility] CBC W/PLT COUNT & AUTO 2019-12-19 05:35:00 Marcial Chapa [facility] BASIC METABOLIC PANEL (7) 2019-12-19 05:35:00 Marcial Chapa [facility] LACTATE DEHYDROGENASE 2019-12-19 05:35:00 Sakina Chen [facility] POCT-GLUCOSE METER 2019-12-19 05:24:00 Pat Mohamud [facility] POCT-GLUCOSE METER 2019-12-18 21:35:00 Evens Mohamudruel [facility] POCT-GLUCOSE METER 2019-12-18 16:05:00 [facility] POCT-GLUCOSE METER 2019-12-18 07:45:00 Pat Mohamud [facility] POCT-GLUCOSE METER 2019-12-18 06:14:00 [facility] POCT-GLUCOSE METER 2019-12-17 21:44:00 Pat Mohamud [facility] POCT-GLUCOSE METER 2019-12-17 17:52:00 Cade [facility] POCT-GLUCOSE METER 2019-12-17 12:22:00 Cade [facility] HEMODIALYSIS INPATIENT 2019-12-17 10:33:08 Brandie Khan [facility] POCT-GLUCOSE METER 2019-12-17 06:18:00 Pat Mohamud [facility] CBC W/PLT COUNT & AUTO 2019-12-17 04:14:00 Marcial Chapa [facility] DIFFERENTIAL [facility] COMPREHENSIVE METABOLIC 2019-12-17 04:13:00 Marcial Chapa [facility] PANEL [facility] POCT-GLUCOSE METER 2019-12-16 20:55:00 Pat Mohamud [facility] POCT-GLUCOSE METER 2019-12-16 18:24:00 [facility] HEPATITIS B SURFACE 2019-12-16 16:02:00 Aldujayue [facility] ANTIBODY [facility] HEPATITIS B SURFACE 2019-12-16 16:02:00 Aldubarrettmary [facility] ANTIGEN [facility] HEPATITIS C ANTIBODY 2019-12-16 16:02:00 Radhamary [facility] HEPATITIS B CORE 2019-12-16 16:02:00 Bill [facility] es - ANTIBODY, TOTAL [facility] POCT-GLUCOSE METER 2019-12-16 14:47:00 [facility] IR TUNNELED DIALYSIS 2019-12-16 14:26:00 Sharri Fernando [facility] CATHETER [facility] HEMODIALYSIS INPATIENT 2019-12-16 12:37:39 Bill [facility] POCT-GLUCOSE METER 2019-12-16 11:01:00 Pat Mohamud [facility] XR CHEST 1 VIEW 2019-12-16 05:55:00 Marcial Chapa [facility] PORTABLE/BEDSIDE [facility] POCT-GLUCOSE METER 2019-12-16 05:51:00 Pat Mohamud [facility] CBC W/PLT COUNT & AUTO 2019-12-16 04:08:00 Marcial Chapa [facility] BASIC METABOLIC PANEL (7) 2019-12-16 04:08:00 Marcial Chapa [facility] PROTHROMBIN TIME/INR 2019-12-16 04:08:00 Marcial Chapa [facility] SARS-COV2/RT-PCR ([facility] & 2019-12-16 01:45:[address] [facility] Plan of Care Planned Activity Planned Date Details Comments Source Future Scheduled 2020-12-[address] [facility] - Test 00:00:00 examination [facility] (regime/therapy) [code = 114208227] Future Scheduled 2020-12-[address] [facility] - Test 00:00:00 [facility]procedure) [code = 011132491] Future Scheduled 2020-11-[address] [facility] - Test 00:00:00 (Season Ended) [code = [facility] INFLUENZA VACCINE (Season Ended)] Future Scheduled 2020-03-[address] [facility] - Test 00:00:00 (12+) [code = [facility] DEPRESSION SCREENING (12+)] Future Scheduled 2020 PNEUMOCOCCAL 65+ YRS [facility] - Test 00:00:00 (1 of 1 - [facility] [id number]) [code = PNEUMOCOCCAL 65+ YRS (1 of 1 - [id number])] Future Scheduled 2017-11-[address] [facility] - Test 00:00:00 [facility] (procedure) [code = 82455469] Future Scheduled 2005 SHINGLES VACCINES ([address] [facility] - Test 00:00:00 of 2) [code = SHINGLES [facility] VACCINES (1 of 2)] Future Scheduled [address] [facility] - Test 00:00:00 (procedure) [code = Medical Center 45711262] Future Scheduled [address] [facility] - Test 00:00:00 malignant neoplasm of [facility] cervix (procedure) [code = 261230029] Future Scheduled 1974 DTAP/TDAP/TD VACCINES [facility] [...] 00:00:00 [facility] [code = 820131805] Future Scheduled [address] [facility] - Test 00:00:00 [facility] breast (procedure) [code = 736030379] Encounters Start End Encounter Admission Attending Care Care Encounter Source Date/Time Date/Time Type Type Clinicians Facility Department ID 2020-03-28 2020-03-29 Emergency Chato Fine [facility] [id number] 15:50:00 20:31:00 Maureen Terrazas [id number] [place] [id number] [place] [id number] 2018-11-17 2018-11-17 [facility] [id number] 11:30:00 11:30:00 [facility] 2018-10-06 2018-10-06 [facility] [id number] 16:14:00 16:14:00 [facility] 2018-09-28 2018-09-28 [facility] [id number] 10:30:00 10:30:00 [facility] Results Test Description Test Time Test Comments Results Result Comments Source ANAEROBIC CULTURE 2020-01-04 10:26:00 Test Item Value Reference Range Interpretation Comme nts CULTURE (BEAKER) (test code = 1095) No anaerobes isolated Tissue [id number] 10:21:00 Test Item Value Reference Range Interpretation Comments Case Report (test code Surgical Pathology = 104) Report Case: [id number] Authorizing Provider: Tala Santacruz DPM Collected: 12/30/2019 01:38 PM Ordering Location: [address] Med/Surg Received: 12/31/2019 06:52 AM Pathologist: Jovita Griffith MD Specimens: A) - Soft Tissue, Other, left 5th proximal phalanx B) - Metatarsal, Left, left 5th metatarsal DIAGNOSIS (test code = [id number] 3220) FuZzEwMzNcZnRuYmpcdWMx KNnrkaDfGRntk4RuU1FdSw AwMFxhbnNpXGRlZmxhbmcx FXXnCRN2rtSiWGYyFHizRX DtBVjtEg1uuZUwqQdaJaLr ZLUnl8tmqyRAwyepfCa7i6 qyCVLjMvC5aHGrDXfxF7ir wrCcaXTxPSElIPu8rT67NT CbgN5atLSkRGpdztZrMkQ7 EDfyLDAdCoF2BVSccBVhYA AdK2qsGKBdXMavWLPbRLsn cYEeLII0nXwzn1C8aKKwkX BelBvjMuVfGbLxRXXEy0Ze ZFv3lBtzN6ZjEQVlPmX7gW QgUGFyYWdyYXBoIEZvbnQ7 cQ95ITtlciE5wZHho4Tmg6 0jp336cC9xeFOyDST0SNAb DNHsxBUkPYCgVDO4NJSmpW GqO7o5HxWtdJCnO0T8WmHr dEVqK6I2MuWagBMgY3R1Gp XaoTFmUISlqJOtAq0wfRJl oGTqbo9lbr04UKN4r1IijB baGJP5UOV4AdTtCz2mtYVv EGRdYN8dOdEllXChHZFnlw 35iFloPJbdtxEthK3rZzZb LMWahLZtXOLqMH7uqYTjXQ RdcE0nrzzzNIKmEmJhkugr ALKeoZgbetQuJf1npAvjLE A7JIxhP4gnmR1kJnB6NAmr U0tgrR7qXVy9QBpsyWP4FV DwvI9uDN7lhkdsg8rrUpCc FM7ivtteg0ytBkXiFU8tfr w9r0xoNrNxFC6hjwnpu4cp NzIwXGhlYWRlcnkwXGZvb3 FqrgfbJTNce2AeQ9NogTnq B04mtSbvF69dNJEmxFbfoZ 0keAqdlZ1pGhCbOtDwHEws bFxwbGFpblxmMVxmczIwXG dnskdiQVWzVUbvN9ogWvZx YYNxqRtmEVtxv3XdGUXaHW BuDbIuHD3nDx0PFWahHKPL WKIPPUGBDTAFHm3RNQ5ANJ XKAQVTVK5YGBSSKV5OY5f7 XOFdnsNdLBDeBMZFZN4kV3 xPISQIWbMWAmuNUL0OKNMN UlRJTEFHRSBXSVRIIFNVUl IOAL7VDX0PTSENGUFOXSDM RCBDSFJPTklDIElORkxBTU 1BVElPTlxwYXJccGFyIEIu IEJPTkUsIExFRlQgRklGVE ggTUVUQVRBUlNBTCwgQklP UFNZOlxwYXIgICAgLSBBQ1 GYGJJQC6VCG63BOFjIQAvV IFxwYXIgICAgLSBTRVBBUk XDAOCNAlXRXSZKQTXtA8Xx JpbZMb9WK08NZZRPHZDPPS WGW5XLDDGQAKXFBZYIT8ZQ R9UgLQ7PB8GYP1dUPTMTTP BHUkFOVUxBVElPTiBUSVNT DLWfGa7OOKEGMY7RHIMhch 50DPE5JrFxb9X8AVG8MVPv YZGai5ndABBliFTrKyXvCr NcZnRuYmpcdWMxXGRlZmYw t0brd624gKGuu7jhKYCpMg X8lYSuHRWzgOYfV538PXFc DKyvo6yqe9ScKNLqoUGgj2 J2VYBOggqjrJm3kIjlL76w e5L6PnpnG8reHUEsDCPwP4 RySL9sUTAuWfo2HPL3LWT7 CQSaQGEpC8GsCD1fUYWekD BlPEy5s4lbhPfdWFKsGMA8 b8soWLgeuyAeNX0aud5gnH k0n8wexrLyNLRuSEJnqSFM YFGrI1LczIesJc3xcWo2pG fsBdqpTKH8Plh8TE1dfh38 wtk7rFnyIQNwnobyXjA8RR ndFRZrxojiBVc5HFboVHCo kJX9NQOfpBPcS0KrHHUgSK 9vxje9NGI4NBasJVPkNiT7 NDBcaGVhZGVyeTcyMFxmb2 70FCE0TmUlSA8tF4Cig6C6 eA4fjJRvPDYgoKAcKbLyEK Snen2hbBRrEYgmn1SgFYE3 nhG4aZIerNFjEAIxXdI0DD tsGY7dvs61VJSgJXT6fq3m bGNccGdicmRyaGVhZFxwZ2 RsGPXxh378GXUaM9OiGGZt k7C7suEvRgOfDHZtvCY8je V5EBLoZN0ilghqq2jrGSnh FUfgRQMmgyL3kjU7YHGavE GuD8HtwM8qFECnJM9ljczs w2guYZW0MWpeNPLgCMG6Ik WkVLKpj0Vyozv9PrYqu5Cu wKWbEZuiC67zf058BRIzgp PrG4eplDFjgjvzkKDvtfal XLtemfS6TQScEUmtakfgFC QwUJbtK6qeXcXqZVOqdZhx BMohh3FdYPPqYRAaYwLigA GgJGMfEpe6YHJvaDRyCVLi DfAvI0gndhzpZaAPJYIib5 lyY3mpvJMUxEHsY2GvDCak dsOcIZeuPEgpDVS6UXL6Ax 22VdW6ORGmxb34 CPT Code(s) (test code i5dzoPXmCTXeaPNuCpLdHQ = 3357) HbBMDjy8pdYWOjaRPmFtQq MzNcZnRuYmpcdWMxXGRlZm Umt4tuu866fXWfq6vmBMTm IlR6gJAhJNKhlQGnU508p4 tzf8towcXesVV7ANAfKTD3 WNbouaMcraS4PLtzhPLhJs C6EPmjwsUeBOmjfcSyesOn Imi4XKSmX038UFW8pSkqn2 xnUHF7NFOxWIRcNaJcWq1x dNIsO244NPBlEDOHALTfyZ t6HKKtffQwnrTczYAKp262 L858e5awFMVzcnWawGaWwh sdf6wdF867XYVaiQBmwyVz YmOoOHOvvTQsaPR2GQRkMD 5ptnwyDtBzTA4vkwqhBfKr NZ9qfhd1NxZnJP1vskaaBp YqFUbvHFFlpflnHZSvq4Aj gorkDG0xU5Gns0Z0eA3noN KiRFEreANiRlJgMEEtei7t tXKaAUqyz8EpZXH1uoL4iF YtnXCjSAWrSO71Njrpb7Oy HfaeFXI5ZFXxiaLkt8Pih5 rvAaOwhpKqK7otJ9KzUFKf YXFsELCpGmIizkJff1Dbz1 NiaFWxoFb9c8axTHNvAGEl yDods7xtOUY8NIAsN0Y7lG Caa8pcLYfbPTKkeAD0ztta UVubZJUbghW6qkfvCOdxAI OpnIF0yljeKEzrXPTlLdD9 lumfITuwRMPsPKA3FJdbh6 93YLQ5JClqDpqnVAdoLFTb bmNvbnRccGduZGVjXHBsYW luXHBsYWluXGYwXGZzMjRc fDhmsUiepS7eJbAiFaNlTO bqZQ0fQCKgB4cnoBZgANUw AETxN5jsEpVebS9lxHgdLT ficyUdFP8AP0C4XCPvoqP8 VILhDvJ5GvrkILHfWBqkRA EgeDJccGFyfQ== CLINICAL HISTORY (test v3efeTEeHLYucNWiJfAzXW code = 3356) PmOTVhj6dqJXSxoHZdGhBv MzNcZnRuYmpcdWMxXGRlZm Awx8cdb110sGDul0xaQBSo AcI9qKCcGNBudTRvK181w5 otm5jdosFtaLO3GTTvEQR1 ESlhrdKbrrW1INrpiCIhPi X2LUrtxcCzWNymsrZkrbSw Yzt5XMSkW377ZXI5tZekc6 epUOA7DVVnKLHjFdWqUy0h xUFvU654XFHwDKUQWGGxsR f0OWPjdlVqwjDnrITYp863 D928y4tpZUZcxrYucMmCvg fek7yuW413TTPihBFntzAh TvZkFCLwdEPzoTE9RBTrTP 0gfuekFfIrLA8yyhjhJgMg CB4qewj4PeSgRF0wmudnGg YkVRrbOKFbopafWOApr2Ll smjcDO3eI3Efm6N9vF0ffX WzNODcxEXfEjZgSVVotn8y gMJkKHhhl4YeJYM5ycJ9yB HiqQXfDUDeYQ25Thqjl8Zt QospGIR8EIYgeiIol4Rhi3 chQiGokkWhZ5gqW6RbCLAr TLAgBOXgIyJmviEog8Ywc4 OjoZApmNx5n4vxGYFcTXTq vWuqi2irTEL4YWFsR7Q3tE Tqz9gvEBcrWYYmsAD4uqkn SPjuMEIgmeL0tolzJNzyOO RmaZM0ebdhSRgdCJUlHrM8 vcilNWkcJCTiOGI4PGhfo2 14CTM0WQkmGzhwHMbtDVCc bmNvbnRccGduZGVjXHBsYW luXHBsYWluXGYwXGZzMjRc pXxqhMkdxX2nApFhCgYkUF ljAX5zORZzR5jpoYBwRLHi TRElR5zzYrMdgH5leFntOG qgnbBjVI2oqJIspJzjmJo0 hCBdh7VmqDUnkYV2qVgkbZ V6WXOcbpYzuMtraGzrCCEb b5RvDiqhXLNontKlTZQvAK RccGFyfQ== SPECIMEN SOURCE (test c7ofjKOkYPAvwANzIyMuMZ code = 3377) HxQQFxx4ctZSDmcLVvMhIp MzNcZnRuYmpcdWMxXGRlZm Ywb4bec336gCMdi1qfMZYt UsE3pVUqIXWofLUsT509w8 zxt3dnnnYalLH6LLQfZAN1 AFxjyaFdsdC1OQtofODlTg V7YCqnvsWgVFqpddZlhnDy Ucn0WRVxT436ZCN7lFmlg1 kiMIA3WZMbTPCwOcCiHc4q hOBiQ423VUIwVCALZNOawM l6OETnzbCevzYjgCLYl821 B278z2zvMOScwsTmpGrTxe vlm1ifY880MWPdsLWgelTb NqCdVBGwpWYjpTD3HEEsBN 7ubdinBsSsFG5ioymjAiVs NS9sgsr6QdSzET5kdmitRw LsYOwbIMMabtbwRMRxg2Ow xexlNJ2uY4Jah0N2fP2smC YqEOUvdXHaLkDwWYWcey0j rTVhHNhtr7DuILK1ymH9tD IgpUOrKHTiMM50Lndxv0Ov UsdyWGC3RHKmunAxc8Jkx1 tsXiKarmWzI8hqU2YrUQPy KVZeKXQfZhXdsvPdz9Gtw8 OegNMbmTr3k0vrUEQtMSJt aEnfn2dbWNG3JAMzX9T9yZ Lnp2gxTKhzENThqDX8xyfy NKruPMJrkkX0njrmCUrnPL VmyNU5zuvkMScsNUSdBlE2 bhgwMUcmEYPeKEH4RBssd2 98WYM2BKdbWuubBGanKBNp bmNvbnRccGduZGVjXHBsYW luXHBsYWluXGYwXGZzMjRc zLkwuMrpvP2fAiPtTmVdRI edAS7gSURqO8pooMGlLEAo SBCmK5jhHcDraC1zqTrxSC xmczIwIEEuIExlZnQgNXRo LFRkv3myjZZeRVVyKBridp ooRRTsQNqhCoHwAPNtLR9u qIA7KDRsBXdhELJfsw5= GROSS DESCRIPTION (test d8jdaXMlVANwcNOpCjGfKP code = 3366) IsMKEuy1hjZSBbjGGmSsJa MzNcZnRuYmpcdWMxXGRlZm Iao5inc151aBEzh0elUCLg TuU0sRBtNXDsuIDfT450ZW DyPQyjk1wen0LyFUNhwDRt j5U9KSLMhkgfnFt6uVaoS1 8ht4X6EyzlR8hhXWHlRBJr D3YrTP2nYZJyHsh7RLS4BT K7IWJjPOHoW5YbFJ8nKQSx dLYrTJq2g1mirWryTNIfFV H3p9jlKAoukmVpTS3ouf0o mWu1h0kuvbRdLKEcLCOsyK SFFKMaV4IusPevTy8ifSc7 aHjjHrzdKPH1Opw9HK7xlo 98slj4rJxmDJAxulkqTzR1 ZUroIKGywivsONh1HRfuRL JnbDcyMFxtYXJncjcyMFxt YXJndDcyMFxtYXJnYjcyMF ryXYQmGMR1NEemr590AJK6 CBtpf8bls3zdyBSuNit5YB ZgYeGnGpuoIMbzw7Ixc4vm HAMxxl3oXAO9pEYqqMavc5 D8iRUeZOSalAQljiPdTRRr MkE5AHzdJE9vso51YUSbMY Q2tw3ueNHviRklmyMsqGTl UWzbE0GrLVOwy620GJUaK8 UkHSLcg7W2heDtSoViTJLe tNT2loO2QLYvGHl5oAVrwu Q6qcHpxHDiG7hfjR11GyLa cNYyC3GsyV02NsMrfOKpE9 KgxL57CnGkxRYnY7OqnP06 MbUshLNoJCAltTEwQh5thE FidWLif1BdfHLqUPiuH02m m198TNWskzByH7rmnTSxnh tvxYCbbkuvSEvlnvI4AJFa XHBsYWluXGYwXGZzMjBcbG FuZzEwMzNcaGljaFxmMFxk LzJwQGQrBJivF7roVpHfAp UtKNGVgKFukE3ozyLRLOyy JIUnU0JxdwBsUJcdPAEfgF J7bROnUFhtPtQvSBPtj0o8 mTI3gSXgtWD7lPGupVzmVC 1kyOVkUD2aPA8lMDujRNwe dxZge6RoZC30lONaigLapr QgZGVzaWduYXRlZCBhcyAi j34eoCA4rBVotDZuJM04tI QcVbmiK46eg3mzeBSam3Ne v2tafQJwuUDpaT73LLGnub GpSxCqC37tveRhSD2hHQJ1 cmluZyAwLjcgeCAwLjMgeC FkClLbG08kDIOkKHYyxSKx wM3uxeZfahWmqDWavXY8LA PzEQ35lLRufKpbeM14uhKI TPRgntValD96hjSmRLVcaL Mxk5d3vDmyuf1huMYmQNWp kdWVcBLqdZ4oskOTMFswXC EsF4VgtbCpZLmpADWzmLC2 jTRiWZeoDyNkJAAcg8a3zJ U9rJHvoAC3eNXurXfbNO7p xCScWO4jJY9xJTcsLUhxza Kan5EkHA95aKJrgdDtyxVo ZGVzaWduYXRlZCBhcyAibW L4QUVwgrGeqOHiTQN6Jjyl S21kq1qjsLVol4PgDk82yy AvFQIwIhMhd87emYogf8Wg XDZoQAMst05tOWEaVAnlSY 11kvGyOQXmqEHpwpfvTq4u LPqzDC95JIrpEM52SPUaEH klIBFaY7LhS4O3QT8dgUcr IHNwZWNpbWVuIGlzIGVudG iwVVv1SKjrfSIsxmqyWWcu czIwXGxhbmcxMDMzXGhpY2 bgCqQjLLKusMzhVPved6Zb IBVnGWPwJiZdRzLvMI0oNP cwkB4dWBBaPFbse68hxCEt f48fSTWpBGupIBAdOGTgKy BcbGFuZzEwMzNcaGljaFxm CXugZlYxLDEdDVkaA4hyRz BcZnMyMCAgTUcvZXdccGFy fQ== MICROSCOPIC DESCRIPTION m5nmwIObTFOmeLKaHxQaFP (test code = 3371) EvRRCuy5hoSKWzwPDbIdIs MzNcZnRuYmpcdWMxXGRlZm Snp9oqj855rYFac5uwMJNa XuQ1oPHjFERprETxO497q3 qjd3rutuVekHY9VKLnKEB4 DLwvzdGqkgF4NMqypCEuDe N4HLgdvsEiQPqklpNepxDl Rlp5WAVlW550PWL7wRwpd4 mnAUR6BJOiDJHgDuHdSg3n vUMlC031KNFsNPOYUVXtuF s4STCjkuYaoaDioKBXv262 A588b3fnYLGeocGagAcZjs jxf4lsU403VUTtvLThyoKc AzHxVMNclUDrsOR9UMJkNX 0bmulpKgAkEK8eakjzDeTk TL0vynx6GzOaRA3veomiRi PoADikJXJxeirnRTOcx8Mf maskYL9gC9Ozt5D7iR5urM KqDCGoxIZjInLpYHWxot9r oETkTKzut1LtFAD2odS4wW SvhSZzMZBnTU38Bbqzf2Oo RthfYMH4PBEeonXmm0Ckz9 vgAoOxxkNfA8osV7UaJYHm MASoEAGbWcVityIya5Arl5 NwjVLdaAa1v4cwIITtATPt oSzig6ntFXC6EHBaL5T0jJ Gol1weKLdoNYMklSF4eypi ZUamIRQyjpD4waccHOeyTL HeiCL5xlquXYmbMKRsVwP0 snpnWDgpEURfGTP5RTwwb0 19OZV0IQwyZqkgFUjdSOPd bmNvbnRccGduZGVjXHBsYW luXHBsYWluXGYwXGZzMjRc yYtwxKlmbQ7oAhHhLkXiZD weFF8gMSBdS2aemVLpQBFp XFEyW1wbIfIglO3qgEnmFP fjhvKbSTQnMn1vQKWtLs8v bWVkLlxwYXJ9 Gross assessment was [facility] performed at (test [facility], Department = 2777) of Pathology, [address] [place] [address], Technical component was [facility] performed at ([facility], = 2778) Department of Pathology, [address] [place] [address], Professional component [facility] was performed at ([facility], Department code = 2779) of Pathology, [address] [place] [address], [facility] [id number] 10:21:00Surgical Pathology Report Case: [id number] Authorizing Provider: Tala Santacruz DPM Collected: 12/30/2019 01:38 PM Ordering Location: [address] Med/Surg Received: 12/31/2019 06:52 AM Pathologist: [...] TISSUE FORMATION Signing Pathologist Direct Phone Line: [phone] signed by Jovita Griffith MD on 01/04/2020 at 10:21 AM/[id number] [id number] of left 5th metatarsal, ulcer of bilateral [...] entirely B1 and into decal solution. MG/Veronica-B. Performed.[facility], Department of Pathology, [address] [place] [address], Lqhfay [facility], Department of Pathology, [address] [place] [address], [facility], [facility] of [facility], [address] [place] [address], XYXXNVKZI [id number] 10:47:00 Test Item Value Reference Interpretation Comments [...] negative Staphylococcus SURGICALLY OBTAINED CULTURE + GRAM [id number] 08:31:00 Test Item Value Reference Range Interpretation Comments CULTURE (BEAKER) (test code No growth = 1095) GRAM STAIN RESULT (BEAKER) <1+ WBCs (test code = 1123) GRAM STAIN RESULT (BEAKER) No organisms seen (test code = 21238) SURGICALLY OBTAINED CULTURE + GRAM [id number] 08:19:00 Test Item Value Reference Interpretation Comments Range CULTURE (BEAKER) STENOTROPHOMONAS A 2+ Sten otrophomonas (test code = 1095) MALTOPHILIA maltophil ia Levofloxacin (test S code = 22) Trimethoprim + S Sulfamethoxazole (test code = 47) GRAM STAIN RESULT <1+ WBCs (BEAKER) (test code = 1123) GRAM STAIN RESULT No organisms seen (BEAKER) (test code = 986561) POC-Glucose [id number] 06:47:00 Test Item Value Reference Range Interpretation Comments POC-Glucose Meter (test 102 mg/dL 70-110 : TE STED AT [facility] code = 1538) [address], [facility] [place] [address]: Post Production Assistant/Techni artemio ID = [id number] for DamianAnne Lab Interpretation (test Normal code = 45737-7) [facility] [id number] 06:47:00 Test Item Value Reference Range Interpretation Comments POC-GLUCOSE METER 102 mg/dL 70-110 : TESTED A T [facility] [address] (BEAKER) (test code [address], = 1538) [facility] [address]: Post Production Assistant/Techni artemio ID = [id number] for Anne Busby Comprehensive metabolic [id number] 06:34:00 Test Item Value Reference Range Interpretation Comments Protein, Total (test 6.1 See_Comment [Autom ated code = 2885-2) message] The system which generated this result transmit merna reference range : 6.0 - 8.5 gm/dL . The reference range was not u sed to interpret th is result as normal/abnormal . Albumin (test code = 2.3 g/dL 3.5-5 L 65510-6) Alkaline Phosphatase 81 U/L 30-115 (test code = 6768-6) Total Bilirubin (test 0.4 mg/dL 0.1-1.2 code = 1975-2) Sodium (test code = 137 meq/L 547-174 1505-2) Potassium (test code 3.7 meq/L 3.6-5.5 = 2823-3) Chloride (test code = 100 meq/L 98-106 2075-0) CO2 (test code = 28 meq/L 20-29 8-9) BUN (test code = 14 mg/dL 10- 3094-0) Creatinine (test code 2.31 mg/dL 0.5-1.2 H = 2160-0) Glucose (test code = 100 mg/dL 70-110 2345-7) Calcium (test code = 7.5 mg/dL 8.5-10.5 L 83585-4) AST (test code = 15 U/L 5-40 1920-8) ALT (test code = 6 U/L 5-50 1742-6) EGFR (test code = 21 mL/min/1[place] [address]-9) NOT ACCURATE CREATININE CLEARANCE IN PREDICTING GLOMERULAR FILTRATION RATE . ESTIMATED GFR I S NOT APPLICABLE FOR DIALYSIS PATIEN TS. ZIA (test code = ZIA) Post Production Assistant ID - ADMIN Lab Interpretation Abnormal (test code = 44811-8) [facility] HospitalCOMPREHENSIVE METABOLIC [id number] 06:34:00 Test Item Value Reference Range Interpretation [...] S NOT APPLICABLE FOR DIALYSIS PATIEN TS. Post Production Assistant ID - ADMINCBC with platelet count + automated [id number] 06:06:00 Test Item Value Reference Range Interpretation Comments WBC (test code = 6690-2) 5.7 See_Comment [A utomated message] The system [employer] generated this result transmitted ref erence range: 4.0 - 10 .0 K/L. The refe rence range was not u sed to interpret this result as normal/abnor mal. RBC (test code = 789-8) 2.41 See_Comment L [Au tomated message] The system [employer] generated this result transmitted ref erence range: 4.00 - 5 .00 M/L. The refe rence range was not u sed to interpret this result as normal/abnor mal. MCHC (test code = 786-4) 30.8 See_Comment L [A utomated message] The system [employer] generated this result transmitted ref erence range: [...] L [Aut omated message] 777-3) The system [employer] generated this result transmitted ref erence range: 150 - 43 0 K/CU MM. The referen ce range was not u sed to interpret this result as normal/abnor mal. MPV (test code = 10.5 fL 6-11.5 18925-4) nRBC (test code = 413) 0 See_Comment [Aut omated message] The system [employer] generated this result transmitted ref erence range: [...] See_Comment [Aut omated message] 670) The system [employer] generated this result transmitted ref erence range: 1.80 - 8 .00 K/L. The refe rence range was not u sed to interpret this result as normal/abnor mal. # Lymphs (test code = 1.66 See_Comment [Auto mated message] 414) The system [employer] generated this result transmitted ref erence range: 1.48 - 4 .50 K/L. The refe rence range was not u sed to interpret this result as normal/abnor mal. # Monos (test code = 0.28 See_Comment [Autom ated message] 415) The system [employer] generated this result transmitted ref erence range: 0.00 - 1 .30 K/L. The refe rence range was not u sed to interpret this result as normal/abnor mal. # Eos (test code = 416) 0.12 See_Comment [Au tomated message] The system [employer] generated this result transmitted ref erence range: 0.00 - 0 .50 K/L. The refe rence range was not u sed to interpret this result as normal/abnor mal. # Baso (test code = 417) 0.07 See_Comment [A utomated message] The system [employer] generated this result transmitted ref erence range: 0.00 - 0 .20 K/L. The refe rence range was not u sed to interpret this result as normal/abnor mal. Immature 0 % 0-0 Granulocytes-Relative (test code = 2801) Lab Interpretation (test Abnormal code = 15431-7) [facility] W/PLT COUNT & AUTO [id number] 06:06:00 Test Item Value Reference Range Interpretation [...] PERCENT (BEAKER) (test code = 2801) POCT-GLUCOSE [id number] 21:02:00 Test Item Value Reference Range Interpretation Comments POC-GLUCOSE METER 167 mg/dL 70-110 H : [facility]ED [facility] (BEAKER) (test code [facility] [address], = 1538) [facility] [address]: Post Production Assistant/Techni artemio ID = [id number] for Anne Busby POCT-GLUCOSE [id number] 18:12:00 Test Item Value Reference Range Interpretation Comments POC-GLUCOSE METER 121 mg/dL 70-110 H : TESTED A T [facility] [address] (BEAKER) (test code [address], = 1538) [place] [address]: Post Production Assistant/Techni artemio ID = [id number] for Cortney Cohen POCT-GLUCOSE [id number] 11:54:00 Test Item Value Reference Range Interpretation Comments POC-GLUCOSE METER 117 mg/dL 70-110 H : TESTED A T [facility] [address] (BEAKER) (test code [address], = 1538) [place] [address]: Post Production Assistant/Techni artemio ID = [id number] for Cortney Cohen COMPREHENSIVE METABOLIC [id number] 06:47:00 Test Item Value Reference Range Interpretation [...] S NOT APPLICABLE FOR DIALYSIS PATIEN TS. Post Production Assistant ID - [id number] 06:42:00 Test Item Value Reference Range Interpretation Comments Magnesium (test code = 1.6 mg/dL 1.5-3 52876-5) ZIA (test code = ZIA) Post Production Assistant ID - ADMIN Lab Interpretation (test Normal code = 20211-0) [facility] [id number] 06:42:00 Test Item Value Reference Range Interpretation Comments POC-GLUCOSE METER 101 mg/dL 70-110 : TESTED A T [facility] [address] (BEAKER) (test code [address], = 1538) [facility] 77 478: Post Production Assistant/Techni artemio ID = [id number] for Anne Busby [id number] 06:42:00 Test Item Value Reference Range Interpretation Comments MAGNESIUM (BEAKER) (test code = 1.6 mg/dL 1.5-3.0 627) Post Production Assistant ID - ADMINCBC W/PLT COUNT & AUTO [id number] 06:37:00 Test Item Value Reference Range Interpretation [...] PERCENT (BEAKER) (test code = 2801) POCT-GLUCOSE [id number] 20:24:00 Test Item Value Reference Range Interpretation Comments POC-GLUCOSE METER 155 mg/dL 70-110 H : TESTED A T [facility] (BEAKER) (test code [facility], = 1538) [facility] 77 478: Post Production Assistant/Techni artemio ID = [id number] for Anne Busby POCT-GLUCOSE [id number] 16:39:00 Test Item Value Reference Range Interpretation Comments POC-GLUCOSE METER 164 mg/dL 70-110 H : Notified RN/MD: TESTED (BEAKER) (test code AT [facility] [address] = 1538) [facility], [facility] [address]: Post Production Assistant/Techni artemio ID = [id number] for Alondra Kelley SARS-CoV2/RT-PCR (Asymptomatic ONLY)2019-12-30 15:57:00 Test Item Value Reference Range Interpretation Comments SARS-COV2/RT-PCR Negative Not Detected, (test code = Negative, See 91337-2) external report for linked test SARS-COV-2 [facility] PERFORMING LAB (test code = 71920-4) ZIA (test code = Negative result for [...] of the Act. Fact Sheet for Healthcare Providers:https://www.[employer].FND/sites/default/f loco/product/documents/F act_Sheet_HC_Providers_L dpj_UCHN-XmK-1.pdf Fact Sheet for Healthcare Patients:https://www.[employer]land del.FND/sites/default/fi les/product/documents/Fa ct_Sheet_Patients_Lyra_S ARS-CoV-2.pdf Performing Laboratory:[facility] [place] [address] [facility])2019-12-30 15:57:00 Test Item Value Reference Range Interpretation Comments SARS-COV2/RT-PCR (test Negative Not Detected, Negative, code = 9911353) See external report for linked test SARS-COV-2 PERFORMING LAB [facility] JANET (test code = 4690669) Negative result for this test determines that [...] 564(g) of the Act.Fact Sheet for Healthcare Providers:https://www.[employer].com/sites/default/files/product/documents/Fact_Shee t_BY_Sswpqpsbe_Shgl_ELDT-XsJ-1.pdfFact Sheet for Healthcare Patients:https://www.[employer].FND/sites/default/files/product/ documents/Rhas_Ongmi_Wfgtdgub_Sqho_JEAL-GqY-5.pdfPerforming Laboratory:[facility], [place] [address]VADT-OWWZYAT METER 2019-12-30 11:50:00 Test Item Value Reference Range Interpretation Comments POC-GLUCOSE METER 82 mg/dL 70-110 : Notified RN/MD: TESTED (BEAKER) (test code = AT [facility] [address]) [place] [id number]: Post Production Assistant/Techni artemio ID = [id number] for Alondra Kelley WOUND CULTURE + GRAM [id number] 10:45:00 Test Item Value Reference Interpretation Comments [...] gram negative (BEAKER) (test code rods = 891034) POCT-GLUCOSE [id number] 05:50:00 Test Item Value Reference Range Interpretation Comments POC-GLUCOSE METER 103 mg/dL 70-110 : Notified RN/MD: TESTED (BEAKER) ([facility] [address] = 1538) [place] [address]: Post Production Assistant/Techni artemio ID = [id number] for Zonia Healy COMPREHENSIVE METABOLIC [id number] 05:44:00 Test Item Value Reference Range Interpretation [...] S NOT APPLICABLE FOR DIALYSIS PATIEN TS. Post Production Assistant ID - ADMINCBC W/PLT COUNT & AUTO [id number] 05:29:00 Test Item Value Reference Range Interpretation [...] PERCENT (BEAKER) (test code = 2801) POCT-GLUCOSE [id number] 21:21:00 Test Item Value Reference Range Interpretation Comments POC-GLUCOSE METER 185 mg/dL 70-110 H : Notified RN/MD: TESTED (BEAKER) (test code AT [address] = 1538) [place] [address]: Post Production Assistant/Techni artemio ID = [id number] for Zonia Healy POCT-GLUCOSE [id number] 11:21:00 Test Item Value Reference Range Interpretation Comments POC-GLUCOSE METER 143 mg/dL 70-110 H : Notified RN/MD: TESTED ([facility]) (test code AT [facility] [address] = 1538) [place] [address]: Post Production Assistant/Techni artemio ID = [id number] for Alondra Kelley COMPREHENSIVE METABOLIC [id number] 06:27:00 Test Item Value Reference Range Interpretation [...] S NOT APPLICABLE FOR DIALYSIS PATIEN TS. Post Production Assistant ID - ADMINPOCT-GLUCOSE [id number] 06:21:00 Test Item Value Reference Range Interpretation Comments POC-GLUCOSE METER 73 mg/dL 70-110 : Notified RN/MD: TESTED (BEAKER) (test code = AT [facility] [address]) [facility] [address]: Post Production Assistant/Techni artemio ID = [id number] for Zonia Healy CBC W/PLT COUNT & AUTO [id number] 06:00:00 Test Item Value Reference Range Interpretation [...] PERCENT (BEAKER) (test code = 2801) POCT-GLUCOSE [id number] 20:48:00 Test Item Value Reference Range Interpretation Comments POC-GLUCOSE METER 84 mg/dL 70-110 : Notified RN/MD: TESTED (BEAKER) (test code = AT [facility] [address]) [place] [id number]: Post Production Assistant/Techni artemio ID = [id number] for Zonia Healy POCT-GLUCOSE [id number] 17:51:00 Test Item Value Reference Range Interpretation Comments POC-GLUCOSE METER 59 mg/dL 70-110 L : TESTED A T [facility]SL [address]17 (BEAKER) (test code = [facility] [facility] [place] [address]: Post Production Assistant/Techni artemio ID = [id number] for Christina r, Berta POCT-GLUCOSE [id number] 13:28:00 Test Item Value Reference Range Interpretation Comments POC-GLUCOSE METER 67 mg/dL 70-110 L : TESTED A T [address] (BEAKER) (test code = [address], 15[address]) [place] [address]: Post Production Assistant/Techni artemio ID = [id number] for Christina r, Berta POCT-GLUCOSE [id number] 06:04:00 Test Item Value Reference Range Interpretation Comments POC-GLUCOSE METER 94 mg/dL 70-110 : TESTED A T SLSL 1317 (BEAKER) (test code = [address], 1538) [place] [address]: Post Production Assistant/Techni artemio ID = [id number] for Anahi Sherman COMPREHENSIVE METABOLIC [id number] 05:35:00 Test Item Value Reference Range Interpretation [...] S NOT APPLICABLE FOR DIALYSIS PATIEN TS. Post Production Assistant ID - ADMINCBC W/PLT COUNT & AUTO [id number] 04:56:00 Test Item Value Reference Range Interpretation [...] PERCENT (BEAKER) (test code = 2801) POCT-GLUCOSE [id number] 20:43:00 Test Item Value Reference Range Interpretation Comments POC-GLUCOSE METER 137 mg/dL 70-110 H : TESTED A T SLSL 1317 (BEAKER) (test code [facility] [address], = 1538) [facility] [address]: Post Production Assistant/Techni artemio ID = [id number] for Anahi Sherman MR, EXTREMITY, LOWER, WITHOUT CONTRAST, [id number] 16:55:00MRI LEFT FOOT.Unlisted Reason for Exam - [...] MDReport Verified Date/Time: 12/27/2019 16:55:07 Reading Location: [facility] Radiology Reading Room MR lower extremity without IV contrast left [id number] 16:55:00Interface, External Ris In - 12/27/2019 4:57 [...] Ring Verified Date/Time: 12/27/2019 16:55:07 Reading Location: [facility] Radiology Reading Room Electronically signed by: Adrienne CHU 12/27/2019 04:55 [facility] [id number] 14:19:00 Test Item Value Reference Range Interpretation Comments POC-GLUCOSE METER 232 mg/dL 70-110 H : [facility] T [facility] ([facility] (test code [facility] [address], = 1538) [facility] [address]: Post Production Assistant/Techni artemio ID = [id number] for Christina rBerta CT, CTA AAA, W/ GÓMEZ.EXT.OTAFOE0889-78-89 11:38:00Bilateral lower extremities Addendum BeginsREPORT STATUS:A I agree with the nonvascular findings with exceptions and emphasis as below:*Moderate right and small left pleural effusions are partially visualized.*Large volume ascites.*Diffuse anasarca*The reflux of contrast into the hepatic veins is concerning for volume overload. Signed: Molly Linares MDReport Verified Date/Time: 12/27/2019 11:38:28 Reading Location: [facility] Diagnostic Imaging Reading Room - [place] [address] [id number] angiography of the [...] identified. However, significant calcification identified of the miami left SFA, for example at image 516, [...] the right popliteal artery is patent, with adre-ny-scqkwnly diffuse calcification identified with no obstructive lesion [...] However, in the distal left SFA, the miami artery substantial calcification identified and the stent [...] atherosclerosis identified. 4. In the right, the miami right SFA is not filled by contrast [...] dictated regarding the non-vascular findings by the Musical Instrument Maker Radiologist. Signed: Shlomo Dockeryeport Verified Date/Time: 12/27/2019 07:59:51 Reading Location: [place] [id number] CT Reading Room Protein electrophoresis, serum 2019-12-27 [...] as normal/abnormal . ZIA (test code = Post Production Assistant ID - ZIA) LEONIE Jay Lab Interpretation Abnormal (test code = 82710-3) [facility] HospitalPROTE[facility] ELECTROPHORESIS, [id number] 09:29:00 Test Item Value Reference Range Interpretation [...] chronic inflammatory response. No monoclonal bands detected. [id number] Rocio Galindo MD (BEAKER) (test code = (electronic signature) 2616) PROTEIN TOTAL SERUM, 6.3 gm/dL 6.0-8.3 SPEP (BEAKER) (test code = 2660) Post Production Assistant ID - CAROLINA FCTA AAA and [id number] 07:59:00Interface, External Ris In - 12/27/2019 11:40 AM CDTAddendum BeginsREPORT STATUS:A I agree with the nonvascular findings with exceptions and emphasis as below:*Moderate right andsmall left pleural effusions are partially visualized.*Large volume ascites.*Diffuse anasarca*The reflux of contrast into the hepatic veins is concerning for volume overload. Signed: Molly Linares MDReport Verified Date/Time: 12/27/2019 11:38:28 Reading Location: [facility] Diagnostic Imaging Reading Room - [address] RE[address] CT angiography of the [...] identified. However, significant calcification identified of the miami left SFA, for example at image 516, [...] the right popliteal artery is patent, with yngg-ij-uivkrxgs diffuse calcification identified with no obstructive lesion [...] However, in the distal left SFA, the miami artery substantial calcification identified and the stent [...] atherosclerosis identified. 4. In the right, the miami right SFA is not filled by contrast [...] dictated regarding the non-vascular findings by the Musical Instrument Maker Radiologist. Signed: Shlomo Dockery Verified Date/Time: 12/27/2019 07:59:51 Reading Location: [place] [id number] CT [facility] [id number] 06:56:00 Test Item Value Reference Range Interpretation Comments POC-GLUCOSE METER 39 mg/dL 70-110 LL : Notified RN/MD: TESTED (BEAKER) (test code = AT [address], [facility] [address]: Post Production Assistant/Techni artemio ID = [id number] for Anahi Sherman COMPREHENSIVE METABOLIC [id number] 06:15:00 Test Item Value Reference Range Interpretation [...] S NOT APPLICABLE FOR DIALYSIS PATIEN TS. Post Production Assistant ID - ADMINPOCT-GLUCOSE [id number] 06:01:00 Test Item Value Reference Range Interpretation Comments POC-GLUCOSE METER 55 mg/dL 70-110 L : Notified RN/MD: TESTED (BEAKER) (test code = AT SLS [address]) PKJoe [facility] [address]: Post Production Assistant/Techni artemio ID = [id number] for Anahi Sherman CBC W/PLT COUNT & AUTO [id number] 05:44:00 Test Item Value Reference Range Interpretation [...] PERCENT (BEAKER) (test code = 2801) POCT-GLUCOSE [id number] 21:03:00 Test Item Value Reference Range Interpretation Comments POC-GLUCOSE METER 278 mg/dL 70-110 H : Notified RN/MD: TESTED ([facility]) (test code AT [facility] [address] = [address]) [address], [place] [address]: Post Production Assistant/Techni artemio ID = [id number] for Anahi Sherman POCT-GLUCOSE [id number] 16:53:00 Test Item Value Reference Range Interpretation Comments POC-GLUCOSE METER 70 mg/dL 70-110 : [facility]) (test code = [address] [facility], 153) [place] [address]: Post Production Assistant/Techni artemio ID = [id number] for Nalini Jean Baptiste POCT-GLUCOSE [id number] 12:11:00 Test Item Value Reference Range Interpretation Comments POC-GLUCOSE METER 97 mg/dL 70-110 : [facility] ([facility]) (test code = [address] [facility], 1538) [place] [address]: Post Production Assistant/Techni artemio ID = [id number] for Akhil hurtado, Rachelleea POCT-GLUCOSE [id number] 06:21:00 Test Item Value Reference Range Interpretation Comments POC-GLUCOSE METER 71 mg/dL 70-110 : [facility] ([facility]) (test code = [address] [facility], 153) [place] [address]: Post Production Assistant/Techni artemio ID = [id number] for Edgardjanis Kolby guallpal COMPREHENSIVE METABOLIC [id number] 05:50:00 Test Item Value Reference Range Interpretation [...] S NOT APPLICABLE FOR DIALYSIS PATIEN TS. Post Production Assistant ID - ADMINCBC W/PLT COUNT & AUTO [id number] 05:17:00 Test Item Value Reference Range Interpretation [...] (BEAKER) (test code = 2801) Prepare Leuko-Red [id number] 23:54:00 Test Item Value Reference Range Interpretation Comments CROSSMATCH (test code = 2264) COMPATIBLE Unit ABO (test code = O Pos 9829156) UNIT NUMBER (test code = [id number] 934-0) Status (test code = 6593591) TX_TIMEINCHART Blood Bank Product (test code RED BLOOD CELLS = 2263) PRODUCT CODE (test code = N5577Y16 933-2) [facility] HospitalPOCT[facility]SE [id number] 21:03:00 Test Item Value Reference Range Interpretation Comments POC-GLUCOSE METER 87 mg/dL 70-110 : TESTED A T [address] (BEAKER) (test code = [address], 15[address]) [place] [address]: Post Production Assistant/Techni artemio ID = [id number] for Holly Alamo POCT-GLUCOSE [id number] 17:12:00 Test Item Value Reference Range Interpretation Comments POC-GLUCOSE METER 79 mg/dL 70-110 : TESTED A T [address]SL 1317 (BEAKER) (test code = [address], 15[address]) [place] [address]: Post Production Assistant/Techni artemio ID = [id number] for Nalini Jean Baptiste POCT-GLUCOSE [id number] 11:37:00 Test Item Value Reference Range Interpretation Comments POC-GLUCOSE METER 262 mg/dL 70-110 H : TESTED A T [address]SL 1317 (BEAKER) (test code [address], = 1538) [place] [address]: Post Production Assistant/Techni artemio ID = [id number] for Nalini Jean Baptiste COMPREHENSIVE METABOLIC [id number] 06:29:00 Test Item Value Reference Range Interpretation [...] S NOT APPLICABLE FOR DIALYSIS PATIEN TS. Post Production Assistant ID - ADMINCBC W/PLT COUNT & AUTO [id number] 06:12:00 Test Item Value Reference Range Interpretation [...] PERCENT (BEAKER) (test code = 2801) POCT-GLUCOSE [id number] 06:09:00 Test Item Value Reference Range Interpretation Comments POC-GLUCOSE METER 83 mg/dL 70-110 : Notified RN/MD: TESTED (BEAKER) (test code = AT [facility] [address]) [facility] [address]: Post Production Assistant/Techni artemio ID = [id number] for Anahi Sherman POCT-GLUCOSE [id number] 16:26:00 Test Item Value Reference Range Interpretation Comments POC-GLUCOSE METER 182 mg/dL 70-110 H : Notified RN/MD: TESTED (BEAKER) (test code [facility] [address] = 1538) [facility] [address]: Post Production Assistant/Techni artemio ID = [id number] for Alondra Kelley manual2020-09-25 09:17:00 Test Item Value Reference Range Interpretation Comments Rh Factor (test code = POS 2589) ABO Grouping (test code O PINK TOP 12/24/19 @ 0824 = 2588) [facility] HospitalType and screen, [id number] 07:31:00 Test Item Value Reference Range Interpretation Comments ABO/RH AUTOMATED (BEAKER) (test O POSITIVE ECHO code = 2260) Ab Scrn (test code = 890-4) NEGATIVE ECHO [facility] HospitalCOMPREHENSIVE METABOLIC [id number] 06:42:00 Test Item Value Reference Range Interpretation [...] S NOT APPLICABLE FOR DIALYSIS PATIEN TS. Post Production Assistant ID - ADMINPOCT-GLUCOSE [id number] 06:23:00 Test Item Value Reference Range Interpretation Comments POC-GLUCOSE METER 88 mg/dL 70-110 : TESTED A T SLSL 1317 (BEAKER) (test code = [address], 1538) [facility] [place] [address]: Post Production Assistant/Techni artemio ID = [id number] for Ashley austin Anne CBC W/PLT COUNT & AUTO [id number] 06:23:00 Test Item Value Reference Range Interpretation [...] PERCENT (BEAKER) (test code = 2801) POCT-GLUCOSE [id number] 21:38:00 Test Item Value Reference Range Interpretation Comments POC-GLUCOSE METER 126 mg/dL 70-110 H : TESTED A T SLSL 1317 (BEAKER) (test code [address], = 1538) [facility] [address]: Post Production Assistant/Techni artemio ID = [id number] for Anne Busby POCT-GLUCOSE [id number] 16:54:00 Test Item Value Reference Range Interpretation Comments POC-GLUCOSE METER 89 mg/dL 70-110 : Notified RN/MD: TESTED (ROBERT) (test code = AT SLS L [address]) [address], [facility] [address]: Post Production Assistant/Techni artemio ID = [id number] for Alondra Kelley MR, EXTREMITY, LOWER, JOINT, WITHOUT CONTRAST, [id number] 16:10:00Unlisted Reason for Exam - Click Yes [...] Jordan Verified Date/Time: 12/23/2019 16:10:32 Reading Location: [address] Ortho Consult Reading Room MR lower extremity joint only without IV contrast left [id number] 16:10:00Interface, External Ris In - 12/23/2019 4:12 [...] MDReport Verified Date/Time: 12/23/2019 16:10:32 Reading Location: [facility] C[address]X Ortho Consult Reading Room [facility], [facility]RA[facility], WITHOUT [id number] 15:43:00Unlisted Reason for Exam - Click Yes [...] IMPRESSION:No acute intracranial abnormality. Signed: Berta Muniz MDRtieraort Verified Date/Time: 12/23/2019 15:43:24 MR brain without IV [id number] 15:43:00Interface, External Ris In - 12/23/2019 3:45 [...] Signed: Berta Muniz Verified Date/Time: 12/23/2019 15:43:24 [facility])2019-12-23 14:16:00 Test Item Value Reference Range Interpretation Comments SARS-COV2/RT-PCR (test Negative Not Detected, Negative, code = 1407016) See external report for linked test SARS-COV-2 PERFORMING LAB [facility] JANET (test code = 0732964) Negative result for this test determines that [...] 564(g) of the Act.Fact Sheet for Healthcare Providers:https://www.TapInfluence.FND/sites/default/files/product/documents/Fact_Shee p_ST_Xprrsvjul_Wdhl_UFRG-ZrM-4.pdfFact Sheet for Healthcare Patients:https://www.TapInfluence.FND/sites/default/files/product/ documents/Wtlb_Djarm_Opuuzgrk_Fpmm_RTPW-GpP-1.pdfPerforming Laboratory:[facility], [place] [address]Pmgqi / lambda light chains, [id number] 12:25:00 Test Item Value Reference Interpretation Comments Range Eveleth Lt Chain,Free 474.4 mg/L 3.3-19.4 H (test code = 89042-7) Lambda Lt 225.6 mg/L 5.7-26.3 H Chain,Free (test code = 24541-9) Eveleth/Lambda,Free 2.1 0.26-1.65 H Free annabelle a/lambda (test code = ratio in serum of 2769353) normal individu als is 0.26-1.65. Excessproductio n [...] (test code = Performing Lab ZIA) EZ [facility] [address] [place] [address] Jaguar Stein MD, PhD, CORI Lab Interpretation Abnormal (test code = 04833-6) [facility] HospitalPOCT-GLUCOSE [id number] 11:27:00 Test Item Value Reference Range Interpretation Comments POC-GLUCOSE METER 189 mg/dL 70-110 H : Notified RN/MD: TESTED (BEAKER) (test code AT [facility] [address] [place] [address] = 1538) [facility] [address]: Post Production Assistant/Techni artemio ID = [id number] for Repa julio, Alondra ARTERIAL DOPPLER LEGS, [id number] 11:22:00Reason for exam:->non healing ulcer , non [...] MDReport Verified Date/Time: 12/23/2019 11:22:31 Reading Location: [facility] Radiology Reading Room Arterial Doppler Legs [id number] 11:22:00 Interface, External Ris In - 12/23/2019 [...] MDReport Verified Date/Time: 12/23/2019 11:22:31 Reading Location: [facility] Radiology Reading Room [facility] [id number] 04:44:00 Test Item Value Reference Range Interpretation [...] S NOT APPLICABLE FOR DIALYSIS PATIEN TS. Post Production Assistant ID - ADMINCBC W/PLT COUNT & AUTO [id number] 04:35:00 Test Item Value Reference Range Interpretation [...] H PERCENT (BEAKER) (test code = 2801) [id number] 04:29:00 Test Item Value Reference Range Interpretation Comments Ammonia (test code = 36 See_Comment [Autom ated 89763-8) message] The system which generated this result transmit merna reference range : 17 - 80 mol/L . The reference range was not u sed to interpret th is result as normal/abnormal . ZIA (test code = ZIA) Post Production Assistant ID - ADMIN Lab Interpretation Normal (test code = 37961-7) [facility]2020-09-24 04:29:00 Test Item Value Reference Range Interpretation Comments AMMONIA (BEAKER) (test code = 348) 36 mol/L 17-80 Post Production Assistant ID - ADMINPOCT-GLUCOSE [id number] 20:45:00 Test Item Value Reference Range Interpretation Comments POC-GLUCOSE METER 95 mg/dL 70-110 : TESTED A T SLSL [address]17 (BEAKER) (test code = [address], 15[address]) [place] [address]: Post Production Assistant/Techni artemio ID = [id number] for Anne Busby POCT-GLUCOSE [id number] 17:08:00 Test Item Value Reference Range Interpretation Comments POC-GLUCOSE METER 107 mg/dL 70-110 : TESTED A T [address]SL [address]17 (BEAKER) (test code [address], = 1538) [place] [address]: Post Production Assistant/Techni artemio ID = [id number] for Jordyn Fonseca POCT-GLUCOSE [id number] 11:55:00 Test Item Value Reference Range Interpretation Comments POC-GLUCOSE METER 135 mg/dL 70-110 H : TESTED A T [address]SL [address]17 (BEAKER) (test code [address], = 1538) [place] [address]: Post Production Assistant/Techni artemio ID = [id number] for Jordyn Fonseca ROGER Titer & [id number] 11:40:00 Test Item Value Reference Range Interpretation Comments ROGER Titer (test code = 29393-5) 1:40 ROGER Pattern (test code = 1781) Speckled [facility] HospitalAnti-Nuclear Antibody (ROGER)2019-12-22 11:40:00 Test Item Value Reference Range Interpretation Comments ROGER (test code = 08312-9) Positive Negative A ZIA (test code = ZIA) Test performed by IFA method. Lab Interpretation (test Abnormal code = 07720-7) [facility] HospitalANTI-NUCLEAR ANTIBODY (ROGER)2019-12-22 11:40:00 Test Item Value Reference Range Interpretation Comments ANTI-NUCLEAR ANTIBODY (ROGER) (BEAKER) Positive Negative A (test code = 418) Test performed by IFA method.ROGER TITER AND [id number] 11:40:00 Test Item Value Reference Range Interpretation Comments ROGER TITER (BEAKER) (test code = :40 1541) ROGER PATTERN (BEAKER) (test code = Speckled 1781) POCT-GLUCOSE [id number] 06:44:00 Test Item Value Reference Range Interpretation Comments POC-GLUCOSE METER 92 mg/dL 70-110 : TESTED A T [address] (BEAKER) (test code = [address], 15[address]) [facility] [place] [address]: Post Production Assistant/Techni artemio ID = [id number] for Anne Busby COMPREHENSIVE METABOLIC [id number] 06:35:00 Test Item Value Reference Range Interpretation [...] S NOT APPLICABLE FOR DIALYSIS PATIEN TS. Post Production Assistant ID - ADMINCBC W/PLT COUNT & AUTO [id number] 06:16:00 Test Item Value Reference Range Interpretation [...] PERCENT (BEAKER) (test code = 2801) POCT-GLUCOSE [id number] 20:38:00 Test Item Value Reference Range Interpretation Comments POC-GLUCOSE METER 85 mg/dL 70-110 : TESTED A T [address] (BEAKER) (test code = [address], 15[address]) [place] [address]: Post Production Assistant/Techni artemio ID = [id number] for Anne Busby POCT-GLUCOSE [id number] 18:14:00 Test Item Value Reference Range Interpretation Comments POC-GLUCOSE METER 112 mg/dL 70-110 H : TESTED A T [address] (BEAKER) (test code [address], = 1538) [place] [address]: Post Production Assistant/Techni artemio ID = [id number] for Christina r, Berta POCT-GLUCOSE [id number] 13:00:00 Test Item Value Reference Range Interpretation Comments POC-GLUCOSE METER 77 mg/dL 70-110 : TESTED A T [address] (BEAKER) (test code = [address], 15[address]) [place] [address]: Post Production Assistant/Techni artemio ID = [id number] for Christina r, Berta POCT-GLUCOSE [id number] 07:32:00 Test Item Value Reference Range Interpretation Comments POC-GLUCOSE METER 60 mg/dL 70-110 L : TESTED A T [address] (BEAKER) (test code = [address], 15[address]) [place] [address]: Post Production Assistant/Techni artemio ID = [id number] for Marissa Page COMPREHENSIVE METABOLIC [id number] 06:11:00 Test Item Value Reference Range Interpretation [...] S NOT APPLICABLE FOR DIALYSIS PATIEN TS. Post Production Assistant ID - ADMINC-Reactive [id number] 06:06:00 Test Item Value Reference Range Interpretation Comments CRP (test code = 676) 1.63 mg/dL 0-0.5 H ZIA (test code = ZIA) Post Production Assistant ID - ADMIN Lab Interpretation (test Abnormal code = 46487-0) [facility] HospitalC-REACTIVE [id number] 06:06:00 Test Item Value Reference Range Interpretation Comments C-REACTIVE PROTEIN (BEAKER) (test 1.63 mg/dL 0.00-0.50 H code = 676) Post Production Assistant ID - ADMINPOCT-GLUCOSE [id number] 06:04:00 Test Item Value Reference Range Interpretation Comments POC-GLUCOSE METER 56 mg/dL 70-110 L : Notified RN/MD: TESTED (BEAKER) (test code = AT [address]LS L [address]) [facility] [address] Post Production Assistant/Techni artemio ID = [id number] for Nelda Abdi CBC W/PLT COUNT & AUTO [id number] 05:53:00 Test Item Value Reference Range Interpretation [...] (BEAKER) (test code = 2801) U/S, ABDOMINAL, [id number] 22:02:00Reason for exam:->thrombocytopenia / eval for hepatosplenomegalyFINAL [...] MDReport Verified Date/Time: 12/20/2019 22:02:21 US abdomen [id number] 22:02:00Interface, External Ris In - 12/20/2019 10:04 [...] Hever Marin MDReport Verified Date/Time: 12/20/2019 22:02:21 [facility]POCT[facility] [id number] 20:36:00 Test Item Value Reference Range Interpretation Comments POC-GLUCOSE METER 74 mg/dL 70-110 : Notified RN/: TESTED (BEAKER) (test code = AT [address]LS L [address]) [facility] [address]: Post Production Assistant/Techni artemio ID = [id number] for Nelda Abdi POCT-GLUCOSE [id number] 17:50:00 Test Item Value Reference Range Interpretation Comments POC-GLUCOSE METER 72 mg/dL 70-110 : TESTED A T SLSL 1317 (BEAKER) (test code = [address] [facility], 1538) [facility] [address]: Post Production Assistant/Techni artemio ID = [id number] for Berta Servin CT, BRAIN, WITHOUT [id number] 16:08:00Unlisted Reason for Exam - Click Yes [...] Date/Time: 12/20/2019 16:08:40 CT brain without IV [id number] 16:08:00Interface, External Ris In - 12/20/2019 4:10 [...] Signed: Berta Muniz Verified Date/Time: 12/20/2019 16:08:40 [facility]RAD, FOOT, 2 VIEWS, [id number] 15:15:00Reason for exam:->Rule out osteomyelitisShould this be [...] MDReport Verified Date/Time: 12/20/2019 15:15:25 Reading Location: [facility] Radiology Reading Room , FOOT, 2 VIEWS, [id number] 15:15:00Reason for exam:->Rule out osteomyelitisShould this be [...] MDReport Verified Date/Time: 12/20/2019 15:15:25 Reading Location: [facility] Radiology Reading Room XR foot 2 views [id number] 15:15:00Interface, External Ris In - 12/20/2019 3:17 [...] MDReport Verified Date/Time: 12/20/2019 15:15:25 Reading Location: [facility] Radiology Reading Room [facility] HospitalXR foot 2 views [id number] 15:15:00Interface, External Ris In - 12/20/2019 3:17 [...] MDReport Verified Date/Time: 12/20/2019 15:15:25 Reading Location: [facility] Radiology Reading Room [facility] HospitalAMMONIA2020-09-21 14:56:00 Test Item Value Reference Range Interpretation Comments AMMONIA (BEAKER) (test code = 348) 33 mol/L 17-80 Post Production Assistant ID - ADMINBlood gas, [id number] 14:41:00 Test Item Value Reference Range Interpretation Comments pH, Arterial (test code 7.33 7.35-7.45 L = 2744-1) pCO2, Arterial (test 58 See_Comment H [Autom ated message] code = 2019-8) The system [employer] generated this result transmit merna reference range : 35 - 45 mmHg. The reference range was not used to interpret this result as normal/abnormal . pO2, Arterial (test 109 See_Comment H [Automa merna message] code = 2703-7) The system [employer] generated this result transmit merna reference range [...] % Lab Interpretation Abnormal (test code = 18615-4) [facility] Hospital[facility]AS, [id number] 14:41:00 Test Item Value Reference Range Interpretation [...] code = 1819) 32.0 % Occult blood, [id number] 11:56:00 Test Item Value Reference Range Interpretation Comments Occult blood (test code = 2335-8) Negative Negative Lab Interpretation (test code = Normal 09944-2) [facility] HospitalOCCULT BLOOD, [id number] 11:56:00 Test Item Value Reference Range Interpretation Comments FECAL OCCULT BLOOD (BEAKER) (test Negative Negative code = 618) POCT-GLUCOSE [id number] 11:39:00 Test Item Value Reference Range Interpretation Comments POC-GLUCOSE METER 88 mg/dL 70-110 : TESTED A T [address] (BEAKER) (test code = [address], [address]) [facility] [address]: Post Production Assistant/Techni artemio ID = [id number] for Gifty Phelps [id number] 11:22:00 Test Item Value Reference Range Interpretation Comments Haptoglobin (test code = <8 14-258 L 4542-7) ZIA (test code = ZIA) Post Production Assistant ID - LEONIE F Lab Interpretation (test Abnormal code = 63214-7) [facility] HospitalHAPTOGLOBIN2020-09-21 11:22:00 Test Item Value Reference Range Interpretation Comments HAPTOGLOBIN (BEAKER) (test code = < mg/dL 14-258 L 366) Post Production Assistant ID - LEONIE FT4, [id number] 11:01:00 Test Item Value Reference Range Interpretation Comments Free T4 (test code = 0.52 ng/dL 0.9-1.8 L 3024-7) ZIA (test code = ZIA) Post Production Assistant ID - ADMIN Lab Interpretation (test Abnormal code = 23855-1) [facility] HospitalT4, [id number] 11:01:00 Test Item Value Reference Range Interpretation Comments FREE T4 (BEAKER) (test code = 655) 0.52 ng/dL 0.90-1.80 L Post Production Assistant ID - ADMINPeripheral Blood Smear - Path [id number] 08:19:00 Test Item Value Reference Range Interpretation [...] Griffith M.D. code = 2849) (electronic signature) [facility] HospitalPERIPHERAL BLOOD SMEAR - PATHOLOGIST REVIEW 2019-12-20 08:19:00 Test Item Value Reference Range Interpretation Comments RBC MORPHOLOGY Target Cells (BEAKER) (test code = 2846) RBC MORPHOLOGY Basophilic Stippling (BEAKER) (test code = 62924) RBC MORPHOLOGY Nucleated Red Blood Cells (BEAKER) (test code = 72576) PERIPHERAL SMR Normochromic normocytic REVIEW (BEAKER) anemia with a few target (test code = 2640) cells, nucleated RBCs and basophilic stippling. No increase in schistocytes. WBCs normal in number and morphology. Thrombocytopenia with normal platelet morphology. [id number] Jovita Griffith M.D. 2 (BEAKER) (test (electronic signature) code = 2849) Vitamin B12 and Hnyxao1981-93-49 06:37:00 Test Item Value Reference Range Interpretation Comments Vitamin B12 (test 1431 pg/mL 211-911 H code = 2132-9) Folate (test code = 17.00 ng/mL See_Comment [Automa merna 2284-8) message] The system which generated this result transmit merna reference range : >=5.4. The reference range was not used to interpret this result as normal/abnormal . ZIA (test code = ZIA) Post Production Assistant ID - ADMIN Lab Interpretation Abnormal (test code = 55909-9) [facility] HospitalVITAMIN B12 AND [id number] 06:37:00 Test Item Value Reference Range Interpretation Comments VITAMIN B12 (BEAKER) (test code = 1431 pg/mL 211-911 H 774) FOLATE (BEAKER) (test code = 362) 17.00 ng/mL >=5.4 Post Production Assistant ID - ADMINPOCT-GLUCOSE [id number] 06:32:00 Test Item Value Reference Range Interpretation Comments POC-GLUCOSE METER 79 mg/dL 70-110 : TESTED A T [address] (BEAKER) (test code = [address], [address]) [facility] [place] [address]: Post Production Assistant/Techni artemio ID = [id number] for Anahi Sherman TSH/Free T4 If Rpjzsyffh2013-82-28 06:25:00 Test Item Value Reference Range Interpretation Comments TSH (test code = 21.210 See_Comment H [Automated 21526-0) message] The system which generated this result transmit mrena reference range : 0.350 - 5.500 uIU/mL. The reference range was not used to interpret this result as normal/abnormal . ZIA (test code = ZIA) Post Production Assistant ID - ADMIN Lab Interpretation Abnormal (test code = 09600-3) [facility] HospitalFerritin2020-09-21 06:25:00 Test Item Value Reference Range Interpretation Comments Ferritin (test code = 595.00 ng/mL 10-291 H 2276-4) ZIA (test code = ZIA) Post Production Assistant ID - ADMIN Lab Interpretation (test Abnormal code = 52118-6) [facility] HospitalFERRITIN2020-09-21 06:25:00 Test Item Value Reference Range Interpretation Comments FERRITIN (BEAKER) (test code = 595.00 ng/mL 10.00-291.00 H 361) Post Production Assistant ID - ADMINTSH/FREE T4 IF [id number] 06:25:00 Test Item Value Reference Range Interpretation Comments THYROID STIMULATING HORMONE 21.210 uIU/mL 0.350-5.500 H (BEAKER) (test code = 772) Post Production Assistant ID - ADMINPT/[id number] 06:06:00 Test Item Value Reference Interpretation Comments Range Protime (test code = 13.5 See_Comment H [Autom ated 1282-2) message] The system which generated this result transmitted reference range : 9.3 - 12.0 sec. The reference range was not used to interpret this result as normal/abnormal . INR (test code = 1.25 See_Comment [Automated 1449-6) message] The system which generated this result transmitted reference range : <=5.90. The reference range was not used to interpret this result as normal/abnormal . PTT (test code = 38.2 See_Comment H [Automated 24255-2) message] The system which generated this result [...] Output) Lab Interpretation Abnormal (test code = 68066-2) [facility]2020-09-21 06:06:00 Test Item Value Reference Range Interpretation Comments Fibrinogen (test code = 340 mg/dL 109-421 8073-7) ZIA (test code = ZIA) Final Information (Auto Output) Lab Interpretation (test Normal code = 83697-1) [facility]2020-09-21 06:06:00 Test Item Value Reference Range Interpretation Comments FIBRINOGEN LEVEL (BEAKER) (test 340 mg/dL 200-400 code = 658) Final Information (Auto Output)PT/[id number] 06:06:00 Test Item Value Reference Range Interpretation [...] = 2502-3) ZIA (test code = ZIA) Post Production Assistant ID - ADMIN Lab Interpretation (test Abnormal code = 49118-4) [facility], TIBC, % SAT. (WITHOUT FERRITIN)2019-12-20 05:59:00 Test Item Value Reference Range Interpretation Comments IRON (BEAKER) (test code = 547) 92.0 ug/dL 45.0-170.0 TOTAL IRON BINDING CAPACITY 151 ug/dL 250-550 L (BEAKER) (test code = 769) IRON % SATURATION (2) (BEAKER) 61 % 20-55 H (test code = 2590) Post Production Assistant ID - ADMINCOMPREHENSIVE METABOLIC [id number] 05:55:00 Test Item Value Reference Range Interpretation [...] S NOT APPLICABLE FOR DIALYSIS PATIEN TS. Post Production Assistant ID - VOBFYX-gcqig4758-61-21 05:46:00 Test Item Value Reference Range Interpretation Comments D-Dimer, Quant (test 1.09 mg/L <0.50 H code = 88530-2) ZIA (test code = ZIA) REGARDING D-DIMER RESULTS: The 98% NPV (Negative Predictive Value) for DVT/PE exclusion is 0.50 mg/L FEU as suggested by the automatic pinsetter adjuster and as approved by the FDA.Final Information (Auto Output) Lab Interpretation (test Abnormal code = 87240-5) [facility] HospitalD-[id number] 05:46:00 Test Item Value Reference Range Interpretation Comments D-DIMER QUANTITATIVE (BEAKER) (test 1.09 mg/L <0.50 H code = 671) REGARDING D-DIMER RESULTS: The 98% NPV (Negative Predictive Value) for DVT/PE exclusion is 0.50 mg/LFEU as suggested by the automatic pinsetter adjuster and as approved by the FDA.Final Information (Auto Output)Reticulocyte [id number] 05:42:00 Test Item Value Reference Range Interpretation Comments % Retic (test code = 22212-7) 5.9 % 0.4-2.9 H Lab Interpretation (test code = Abnormal 46546-3) [facility] HospitalRETICULOCYTE [id number] 05:42:00 Test Item Value Reference Range Interpretation Comments RETICULOCYTE COUNT PCT (BEAKER) (test 5.9 % 0.4-2.9 H code = 575) CBC W/PLT COUNT & AUTO [id number] 05:33:00 Test Item Value Reference Range Interpretation [...] U/L 107-206 ZIA (test code = ZIA) Post Production Assistant ID - ADMIN Lab Interpretation (test Normal code = 33276-7) [facility] (LDH)2019-12-19 21:19:00 Test Item Value Reference Range Interpretation Comments LACTATE DEHYDROGENASE (BEAKER) (test 178 U/L 107-206 code = 635) Post Production Assistant ID - ADMINPOCT-GLUCOSE [id number] 20:47:00 Test Item Value Reference Range Interpretation Comments POC-GLUCOSE METER 102 mg/dL 70-110 : TESTED A T [address] (BEAKER) (test code [address], = 1538) [place] [address]: Post Production Assistant/Techni artemio ID = [id number] for Anahi Sherman POCT-GLUCOSE [id number] 16:18:00 Test Item Value Reference Range Interpretation Comments POC-GLUCOSE METER 96 mg/dL 70-110 : TESTED A T [address] (BEAKER) (test code = [address], [address]) [place] [address]: Post Production Assistant/Techni artemio ID = [id number] for Nalini Jean Baptiste Basic Metabolic [id number] 06:26:00 Test Item Value Reference Range Interpretation Comments Sodium (test code = 138 meq/L 033-609 5128-2) Potassium (test code = 3.9 meq/L 3.6-5.5 2823-3) Chloride (test code = 99 meq/L 98-106 2075-0) CO2 (test code = 30 meq/L 20-29 H 2028-9) BUN (test code = 47 mg/dL 10-26 H 3094-0) Creatinine (test code 3.04 mg/dL 0.5-1.2 H = 2160-0) Glucose (test code = 82 mg/dL 70-110 2345-7) Calcium (test code = 7.9 mg/dL 8.5-10.5 L 20458-7) EGFR (test code = 15 mL/min/1.73 [place] [address]-3) NOT ACCURATE CREATININE CLEARANCE IN PREDICTING GLOMERULAR FILTRATION RATE . ESTIMATED GFR I S NOT APPLICABLE FOR DIALYSIS PATIENTS. ZIA (test code = ZIA) Post Production Assistant ID - ADMIN Lab Interpretation Abnormal (test code = 92374-1) [facility] HospitalBASI METABOLIC [id number] 06:26:00 Test Item Value Reference Range Interpretation [...] S NOT APPLICABLE FOR DIALYSIS PATIEN TS. Post Production Assistant ID - ADMINCBC W/PLT COUNT & AUTO [id number] 06:04:00 Test Item Value Reference Range Interpretation [...] PERCENT (BEAKER) (test code = 2801) POCT-GLUCOSE [id number] 05:35:00 Test Item Value Reference Range Interpretation Comments POC-GLUCOSE METER 85 mg/dL 70-110 : Notified RN/MD: TESTED (BEAKER) (test code = AT [facility] [address]) [place] [address]: Post Production Assistant/Techni artemio ID = [id number] for Niraj Zonia POCT-GLUCOSE [id number] 21:46:00 Test Item Value Reference Range Interpretation Comments POC-GLUCOSE METER 125 mg/dL 70-110 H : Notified RN/MD: TESTED ([facility]) (test code AT [facility] [address]) [place] [address]: Post Production Assistant/Techni artemio ID = [id number] for Keen , Zonia POCT-GLUCOSE [id number] 16:17:00 Test Item Value Reference Range Interpretation Comments POC-GLUCOSE METER 103 mg/dL 70-110 : TESTED A T [address] (BEAKER) (test code [address], = 1538) [place] [address]: Post Production Assistant/Techni artemio ID = [id number] for Nalini Jean Baptiste POCT-GLUCOSE [id number] 07:56:00 Test Item Value Reference Range Interpretation Comments POC-GLUCOSE METER 111 mg/dL 70-110 H : TESTED A T [address] (BEAKER) (test code [address], = 1538) [place] [address]: Post Production Assistant/Techni artemio ID = [id number] for Akhil rs, Rachelleea POCT-GLUCOSE [id number] 06:25:00 Test Item Value Reference Range Interpretation Comments POC-GLUCOSE METER 57 mg/dL 70-110 L : TESTED A T [address] (BEAKER) (test code = [address], [address]) [place] [address]: Post Production Assistant/Techni artemio ID = [id number] for Brow n, Anne POCT-GLUCOSE [id number] 21:55:00 Test Item Value Reference Range Interpretation Comments POC-GLUCOSE METER 76 mg/dL 70-110 : TESTED A T [address] (BEAKER) (test code = [address], 1538) [place] [address]: Post Production Assistant/Techni artemio ID = [id number] for Brow n, Anne POCT-GLUCOSE [id number] 18:03:00 Test Item Value Reference Range Interpretation Comments POC-GLUCOSE METER 81 mg/dL 70-110 : TESTED A T [address] (BEAKER) (test code = [address], 15[address]) [place] [address]: Post Production Assistant/Techni artemio ID = [id number] for AbrahamTorrie brockerine POCT-GLUCOSE [id number] 12:33:00 Test Item Value Reference Range Interpretation Comments POC-GLUCOSE METER 73 mg/dL 70-110 : TESTED A T [address] (BEAKER) (test code = [address], 1538) [place] [address]: Post Production Assistant/Techni artemio ID = [id number] for TolJeremias sheasa Hepatitis B surface [id number] 10:49:00 Test Item Value Reference Range Interpretation Comments Hep B S Ab (test code <8.0 See_Comment [Auto mated = 82872-8) message] The system which generated this result transmit merna reference range : <8.0 mIU/mL. e reference range was not used to interpret this result as normal/abnormal . ZIA (test code = ZIA) Post Production Assistant ID Bijal Jay Lab Interpretation Normal (test code = 92447-6) [facility] HospitalHEPAT[facility]IS [facility] SURFACE [id number] 10:49:00 Test Item Value Reference Range Interpretation Comments HEPATITIS B SURFACE ANTIBODY < mIU/mL <8.0 (BEAKER) (test code = 647) Post Production Assistant ID - LEONIE FHepatitis B core antibody, [id number] 10:43:00 Test Item Value Reference Range Interpretation Comments Hep B Core Total Ab Nonreactive Nonreactive (test code = 25971-0) ZIA (test code = ZIA) Post Production Assistant DIONICIO Jay Lab Interpretation (test Normal code = 13960-5) [facility] C [id number] 10:43:00 Test Item Value Reference Range Interpretation Comments Hepatitis C Ab (test Nonreactive Nonreactive code = 87702-5) ZIA (test code = ZIA) Post Production Assistant DIONICIO Jay Lab Interpretation (test Normal code = 77643-0) [facility] C [id number] 10:43:00 Test Item Value Reference Range Interpretation Comments HEPATITIS C ANTIBODY (BEAKER) Nonreactive Nonreactive (test code = 367) Post Production Assistant ID - LEONIE FHEPATITIS B CORE ANTIBODY, [id number] 10:43:00 Test Item Value Reference Range Interpretation Comments HEPATITIS B CORE TOTAL ANTIBODY Nonreactive Nonreactive (BEAKER) (test code = 497) Post Production Assistant ID Bijal HADLEY FPOCT-GLUCOSE [id number] 06:31:00 Test Item Value Reference Range Interpretation Comments POC-GLUCOSE METER 67 mg/dL 70-110 L : TESTED A T [address] (BEAKER) (test code = [address], 1538) [facility] [address]: Post Production Assistant/Techni artemio ID = [id number] for Anne Busby COMPREHENSIVE METABOLIC [id number] 05:10:00 Test Item Value Reference Range Interpretation [...] S NOT APPLICABLE FOR DIALYSIS PATIEN TS. Post Production Assistant ID - ADMINCBC W/PLT COUNT & AUTO [id number] 04:36:00 Test Item Value Reference Range Interpretation [...] PERCENT (BEAKER) (test code = 2801) POCT-GLUCOSE [id number] 21:14:00 Test Item Value Reference Range Interpretation Comments POC-GLUCOSE METER 79 mg/dL 70-110 : TESTED A T [address] (BEAKER) (test code = [address], 1538) [facility] [address]: Post Production Assistant/Techni artemio ID = [id number] for Anne Busby POCT-GLUCOSE [id number] 18:35:00 Test Item Value Reference Range Interpretation Comments POC-GLUCOSE METER 68 mg/dL 70-110 L : Notified RN/MD: TESTED (SERVANDOAKER) (test code = AT [address] [address]) [place] [address]: Post Production Assistant/Techni artemio ID = [id number] for Alondra Kelley SARS-COV2/RT-PCR ([facility])2019-12-16 17:53:00 Test Item Value Reference Range Interpretation Comments SARS-COV2/RT-PCR (test Negative Not Detected, Negative, code = 1983448) See external report for linked test SARS-COV-2 PERFORMING LAB [facility] (test code = 4138482) Negative result for this test determines that [...] 564(g) of the Act.Fact Sheet for Healthcare Providers:https://www.Elyssafregori/sites/default/files/product/documents/Fact_Troy ortizv_WX_Zwxgndqvo_Vado_JBEC-VyK-3.pdfFact Sheet for Healthcare Patients:https://www.Elyssafregori/sites/default/files/product/ documents/Joaq_Teqyp_Eidhbwhi_Lorf_XSCG-RnP-5.pdfPerforming Laboratory:[facility], [place] [address]Ffjavxpyz B surface [id number] 16:57:00 Test Item Value Reference Range Interpretation Comments HBsAg Screen (test code = Nonreactive Nonreactive 5195-3) ZIA (test code = ZIA) Post Production Assistant ID - ADMIN Lab Interpretation (test Normal code = 21467-2) [facility] HospitalHEPAT[facility]IS B SURFACE [id number] 16:57:00 Test Item Value Reference Range Interpretation Comments HEPATITIS B SURFACE ANTIGEN (2) Nonreactive Nonreactive (BEAKER) (test code = 2585) Post Production Assistant ID - ADMINANG, TUNNELED CATHETER [id number] 15:06:00Reason for Central Line/PICC?->Need for hemodialysis accessReason [...] the patient's medical record by the nurse. Timber Incisor Operator: Soto Arias M.D. Drink Waiter: none. Approach: Right internal jugular vein Estimated [...] needle into the right atrium. A 4 Pakistani micropuncture sheath was placed and a 0.035 wire was advanced into the IVC. A subcutaneous tunnel was created in the left anterior chest wall by blunt dissection. A 23 cm tip to cuff 15.5 Pakistani Duraflow 2 catheter was brought through the [...] Arias MDReport Verified Date/Time: 12/16/2019 15:06:45Reading Location: [facility] Radiology Reading Room IR Tunneled Catheter [id number] 15:06:00 Interface, External Ris In - 12/16/2019 [...] the patient's medical record by the nurse. Timber Incisor Operator: Soto Arias M.D. Ass istant: none. Approach: [...] A 23 cm tip to cuff 15.5 Pakistani Duraflow 2 catheter was brought through the [...] tolerated the procedure well and left the [facility] in the same condition. Results: Spot radiograph of the chest demonstrates the new dialysis catheter to lie in theexpected position with its tip overlying the superior right atrium. Impression: 1. Successful, uncomplicated placement of a left internal jugular tunneled dialysiscatheter using sonographic and fluoroscopic guidance and conscious sedation. Signed: Soto Arias MDReport Verified Date/Time: 12/16/2019 15:06:45 Reading Location: [facility] Radiology [facility] [id number] 14:59:00 Test Item Value Reference Range Interpretation Comments POC-GLUCOSE METER 70 mg/dL 70-110 : Notified RN/MD: [facility] (test code = AT [facility] L [address]) [facility] [address]: Post Production Assistant/Techni artemio ID = [id number] for Alondra Kelley POCT-GLUCOSE [id number] 11:13:00 Test Item Value Reference Range Interpretation Comments POC-GLUCOSE METER 72 mg/dL 70-110 : Notified RN/MD: TESTED (BEAKER) (test code = AT [facility] L [address]) [facility] [address]: Post Production Assistant/Techni artemio ID = [id number] for Alondra Kelley RAD, CHEST, 1 VIEW, NON [id number] 09:20:00Reason for exam:->fallShould this be performed at [...] MDReport Verified Date/Time: 12/16/2019 09:20:06 Reading Location: [facility] Radiology Reading Room XR chest 1 view portable / [id number] 09:20:00Interface, External Ris In - 12/16/2019 9:22 [...] MDReport Verified Date/Time: 12/16/2019 09:20:06 Reading Location: [facility] Radiology Reading Room Electronically yeimi d by: SOTO ARIAS MD on 12/16/2019 09:20 [facility] POCT-GLUCOSE [id number] 06:03:00 Test Item Value Reference Range Interpretation Comments POC-GLUCOSE METER 74 mg/dL 70-110 : Notified RN/MD: TESTED (BEAKER) (test code = AT [facility] [address]) [facility] [address]: Post Production Assistant/Techni artemio ID = [id number] for Zonia Healy BASIC METABOLIC [id number] 05:08:00 Test Item Value Reference Range Interpretation [...] S NOT APPLICABLE FOR DIALYSIS PATIEN TS. Post Production Assistant ID - ADMINProthrombin time/[id number] 05:01:00 Test Item Value Reference Interpretation Comments Range Protime (test code = 14.1 See_Comment H [Autom ated 7962-2) message] The system which generated this result transmitted reference range : 9.3 - 12.0 sec. The reference range was not used to interpret this result as normal/abnormal . INR (test code = 1.31 See_Comment [Automated 8221-6) message] The system which generated this result [...] Output) Lab Interpretation Abnormal (test code = 53177-5) [facility] HospitalPROTHROMBIN TIME/[id number] 05:01:00 Test Item Value Reference Range Interpretation [...] Information (Auto Output)CBC W/PLT COUNT & AUTO [id number] 04:46:00 Test Item Value Reference Range Interpretation [...] PERCENT (BEAKER) (test code = 2801) POCT-GLUCOSE [id number] 17:13:00 Test Item Value Reference Range Interpretation Comments POC-GLUCOSE METER 220 mg/dL 70-110 H TESTED AT [place] [address] (BEAKER) (test code = [facility] [place] 1538) [address] BASIC METABOLIC [id number] 15:47:00 Test Item Value Reference Range Interpretation [...] NOT APPLICABLE FOR DIALYSIS PATIEN TS. POCT-GLUCOSE [id number] 11:30:00 Test Item Value Reference Range Interpretation Comments POC-GLUCOSE METER 268 mg/dL 70-110 H TESTED AT [facility] [address] (BEAKER) (test code = [facility] [place] 1538) [address] POCT-GLUCOSE [id number] 07:08:00 Test Item Value Reference Range Interpretation Comments POC-GLUCOSE METER 208 mg/dL 70-110 H TESTED AT [facility] [address] (BEAKER) (test code = [facility] [place] 1538) [address] CALCIUM, [id number] 06:47:00 Test Item Value Reference Range Interpretation Comments CALCIUM IONIZED (BEAKER) (test 1.11 mmol/L 1.12-1.27 L code = 698) PH, BLOOD (BEAKER) (test code = 7.40 1810) BASIC METABOLIC [id number] 06:40:00 Test Item Value Reference Range Interpretation [...] S NOT APPLICABLE FOR DIALYSIS PATIEN TS. [id number] 06:33:00 Test Item Value Reference Range Interpretation Comments PHOSPHORUS (BEAKER) (test code = 5.1 mg/dL 2.3-4.7 H 604) [id number] 06:33:00 Test Item Value Reference Range Interpretation Comments MAGNESIUM (BEAKER) (test code = 2.0 mg/dL 1.6-2.6 627) LACTIC ACID, VENOUS, WHOLE [id number] 06:02:00 Test Item Value Reference Range Interpretation Comments LACTATE BLOOD VENOUS (2) (BEAKER) 0.8 mmol/L 0.5-2.2 (test code = 2872) Effective 08/02/2015: Units/Reference Range ChangeNew: 0.5-2.2 mmol/L Previous: 5-20 mg/dLCBC W/PLT COUNT & AUTO [id number] 05:54:00 Test Item Value Reference Range Interpretation [...] PERCENT (BEAKER) (test code = 2801) POCT-GLUCOSE [id number] 21:30:00 Test Item Value Reference Range Interpretation Comments POC-GLUCOSE METER 248 mg/dL 70-110 H TESTED AT [place] [address] ([facility]) (test code = [place] 1538) [address] RAD, [id number] 21:22:00Reason for exam:->fall, tailbone painFINAL REPORT RAD, [...] MDReport Verified Date/Time: 09/04/2017 21:22:03 Reading Location: [address] Reading Room POCT-GLUCOSE [id number] 17:37:00 Test Item Value Reference Range Interpretation Comments POC-GLUCOSE METER 222 mg/dL 70-110 H TESTED AT [place] [address] ([facility]) (test code = [place] 1538) [address] POCT-GLUCOSE [id number] 13:55:00 Test Item Value Reference Range Interpretation Comments POC-GLUCOSE METER 194 mg/dL 70-110 H TESTED AT [place] [address] ([facility]) (test code = JULIANO Osborne [facility] 1538) [address] POCT-GLUCOSE [id number] 12:34:00 Test Item Value Reference Range Interpretation Comments POC-GLUCOSE METER 229 mg/dL 70-110 H TESTED AT [place] [address] ([facility]) (test code = J[place]IANO [place] 1538) [address] POCT-GLUCOSE [id number] 08:00:00 Test Item Value Reference Range Interpretation Comments POC-GLUCOSE METER 159 mg/dL 70-110 H TESTED AT [facility] 6720 (BEAKER) (test code = JULIANO [place] 1538) [address] CALCIUM, [id number] 06:00:00 Test Item Value Reference Range Interpretation Comments CALCIUM IONIZED (BEAKER) (test 1.05 mmol/L 1.12-1.27 L code = 698) PH, BLOOD (BEAKER) (test code = 7.45 1810) [id number] 05:59:00 Test Item Value Reference Range Interpretation Comments PHOSPHORUS (BEAKER) (test code = 4.8 mg/dL 2.3-4.7 H 604) [id number] 05:59:00 Test Item Value Reference Range Interpretation Comments MAGNESIUM (BEAKER) (test code = 2.0 mg/dL 1.6-2.6 627) BASIC METABOLIC [id number] 05:59:00 Test Item Value Reference Range Interpretation [...] = 380) CBC W/PLT COUNT & AUTO [id number] 05:32:00 Test Item Value Reference Range Interpretation [...] 417) IMMATURE GRANULOCYTES-RELATIVE 0 % 0-1 PERCENT ([facility]) (test code = 2801) POCT-GLUCOSE [id number] 20:36:00 Test Item Value Reference Range Interpretation Comments POC-GLUCOSE METER 211 mg/dL 70-110 H TESTED AT [place] [address] ([facility]) (test code = JULIANO Osborne [facility] 1538) [address] CREATININE, RANDOM [id number] 19:55:00 Test Item Value Reference Range Interpretation Comments CREATININE URINE ([facility]) (test 16.1 mg/dL code = 375) Reference Range: No NormalsPROTEIN, RANDOM [id number] 19:55:00 Test Item Value Reference Range Interpretation Comments PROTEIN, URINE (BEAKER) (test code 102 mg/dL 0-14 H = 1569) POCT-GLUCOSE [id number] 18:04:00 Test Item Value Reference Range Interpretation Comments POC-GLUCOSE METER 177 mg/dL 70-110 H TESTED AT [place] [address] ([facility]) (test code = [facility] 1538) [address] POCT-GLUCOSE [id number] 11:59:00 Test Item Value Reference Range Interpretation Comments POC-GLUCOSE METER 244 mg/dL 70-110 H TESTED AT [place] [address] ([facility]) (test code = [facility] 1538) [address] POCT-GLUCOSE [id number] 07:53:00 Test Item Value Reference Range Interpretation Comments POC-GLUCOSE METER 160 mg/dL 70-110 H TESTED AT [place] [address] ([facility]) (test code = [facility] Dylon [facility] 1538) [address] BASIC METABOLIC [id number] 05:29:00 Test Item Value Reference Range Interpretation [...] S NOT APPLICABLE FOR DIALYSIS PATIEN TS. [id number] 05:21:00 Test Item Value Reference Range Interpretation Comments MAGNESIUM (BEAKER) (test code = 2.1 mg/dL 1.6-2.6 627) HEPATIC FUNCTION [id number] 05:21:00 Test Item Value Reference Range Interpretation [...] code = 23 U/L 6-55 347) TROPONIN [id number] 05:18:00 Test Item Value Reference Range Interpretation [...] PERCENT (BEAKER) (test code = 2801) TROPONIN [id number] 23:40:00 Test Item Value Reference Range Interpretation [...] acidosis, acute neurological disease, and persistent tachyarrhythmia.POCT-GLUCOSE [id number] 22:51:00 Test Item Value Reference Range Interpretation Comments POC-GLUCOSE METER 214 mg/dL 70-110 H TESTED AT [facility] 6720 (ROBERT) (test code = JULIANO [place] 1538) [address] RAD, CHEST, 1 VIEW, NON [id number] 21:42:00Reason for exam:->CHEST PAINShould this be performed at the bedside?->YesFINAL REPORT RAD, CHEST, 1 VIEW, NON DEPT INDICATION: CHEST PAIN COMPARISON: Chest x-ray 4 weeks ago TECHNIQUE: Single frontal view of the chest. IMPRESSION:Cardiomegaly.Mild pulmonary interstitial edema with a small right- sided effusion.No acute osseous abnormality. Signed: Dario Abrhaam MDReport Verified Date/Time: 09/02/2017 21:42:11 Reading Location: [address] Reading Room CREATININE, RANDOM [id number] 21:10:00 Test Item Value Reference Range Interpretation Comments CREATININE URINE (ROBERT) (test 35.5 mg/dL code = 375) Reference Range: No NormalsSODIUM, RANDOM [id number] 21:10:00 Test Item Value Reference Range Interpretation Comments SODIUM URINE (ROBERT) (test code = 80 meq/L 243) Reference Range: No NormalsURINALYSIS W/ [id number] 20:59:00 Test Item Value Reference Range Interpretation [...] code = 514) SOURCE(BEAKER) (test code = 7191) BASIC METABOLIC [id number] 16:49:00 Test Item Value Reference Range Interpretation [...] S NOT APPLICABLE FOR DIALYSIS PATIEN TS. [id number] 16:38:00 Test Item Value Reference Range Interpretation [...] (BEAKER) (test code = 700) BASIC METABOLIC [id number] 13:43:00 Test Item Value Reference Range Interpretation [...] NOT APPLICABLE FOR DIALYSIS PATIEN TS. POCT-GLUCOSE [id number] 12:44:00 Test Item Value Reference Range Interpretation Comments POC-GLUCOSE METER 283 mg/dL 70-110 H TESTED AT [facility] 6720 (BEAKER) (test code = J[place]IANO [place] 1538) [address] CALCIUM, [id number] 07:03:00 Test Item Value Reference Range Interpretation Comments CALCIUM IONIZED (BEAKER) (test 1.02 mmol/L 1.12-1.27 L code = 698) PH, BLOOD (BEAKER) (test code = 7.43 1810) [id number] 05:28:00 Test Item Value Reference Range Interpretation Comments PHOSPHORUS (BEAKER) (test code = 3.3 mg/dL 2.3-4.7 604) [id number] 05:28:00 Test Item Value Reference Range Interpretation Comments MAGNESIUM (BEAKER) (test code = 1.5 mg/dL 1.6-2.6 L 627) BASIC METABOLIC [id number] 05:28:00 Test Item Value Reference Range Interpretation [...] PATIEN TS. CBC W/PLT COUNT & AUTO [id number] 05:06:00 Test Item Value Reference Range Interpretation [...] PERCENT (BEAKER) (test code = 2801) POCT-GLUCOSE [id number] 21:08:00 Test Item Value Reference Range Interpretation Comments POC-GLUCOSE METER 202 mg/dL 70-110 H TESTED AT [facility] 6720 (BEAKER) (test code = JULIANO Osborne [place] 1538) [address] POCT-GLUCOSE [id number] 16:50:00 Test Item Value Reference Range Interpretation Comments POC-GLUCOSE METER 287 mg/dL 70-110 H TESTED AT [facility] 6720 (BEAKER) (test code = [facility] Dylon [place] 1538) [address] POCT-GLUCOSE [id number] 12:21:00 Test Item Value Reference Range Interpretation Comments POC-GLUCOSE METER 213 mg/dL 70-110 H TESTED AT [facility] 6720 ([facility]) (test code = [facility] Dylon [place] 1538) [address] POCT-GLUCOSE [id number] 08:28:00 Test Item Value Reference Range Interpretation Comments POC-GLUCOSE METER 178 mg/dL 70-110 H TESTED AT [facility] 6720 (BEAKER) (test code = [facility] [place] 1538) [address] CALCIUM, [id number] 07:06:00 Test Item Value Reference Range Interpretation Comments CALCIUM IONIZED (BEAKER) (test 0.99 mmol/L 1.12-1.27 L code = 698) PH, BLOOD (BEAKER) (test code = 7.42 1810) [id number] 05:37:00 Test Item Value Reference Range Interpretation Comments PHOSPHORUS (BEAKER) (test code = 3.5 mg/dL 2.3-4.7 604) [id number] 05:37:00 Test Item Value Reference Range Interpretation Comments MAGNESIUM (BEAKER) (test code = 1.6 mg/dL 1.6-2.6 627) BASIC METABOLIC [id number] 05:37:00 Test Item Value Reference Range Interpretation [...] PATIEN TS. CBC W/PLT COUNT & AUTO [id number] 05:07:00 Test Item Value Reference Range Interpretation [...] PERCENT (BEAKER) (test code = 2801) POCT-GLUCOSE [id number] 21:24:00 Test Item Value Reference Range Interpretation Comments POC-GLUCOSE METER 255 mg/dL 70-110 H TESTED AT [place] [address] ([facility]) (test code = JULIANO Osborne [facility] 1538) [address] POCT-GLUCOSE [id number] 17:11:00 Test Item Value Reference Range Interpretation Comments POC-GLUCOSE METER 244 mg/dL 70-110 H TESTED AT [place] [address] ([facility]) (test code = JULIANO Osborne [facility] 1538) [address] POCT-GLUCOSE [id number] 11:54:00 Test Item Value Reference Range Interpretation Comments POC-GLUCOSE METER 209 mg/dL 70-110 H TESTED AT [place] [address] ([facility]) (test code = JULIANO Osborne [place] 1538) [address] POCT-GLUCOSE [id number] 08:15:00 Test Item Value Reference Range Interpretation Comments POC-GLUCOSE METER 132 mg/dL 70-110 H TESTED AT [place] [address] ([facility]) (test code = JULIANO Osborne [place] 1538) [address] RAD, CHEST, 1 VIEW, NON [id number] 07:44:00Reason for exam:->edemaShould this be performed at the bedside?->YesFINAL REPORT Chest one view AP 08/07/2017 7:44 AM CLINICAL INDICATION: edema COMPARISON: 05/31/2017 IMPRESSION: Cardiomediastinal contours are stable. There is mild pulmonary edema,asymmetric to the right. There are trace bilateral pleural effusions, with bibasilar linear atelectasis. Sternotomy wires remain midline. Signed: Regan Cespedes Verified Date/Time: 08/07/2017 07:44:22 Reading Location: [facility] Radiology Reading Room [id number] 05:30:00 Test Item Value Reference Range Interpretation Comments FERRITIN (BEAKER) (test code = 361) 87 ng/mL 5-275 CBC W/PLT COUNT & AUTO [id number] 05:21:00 Test Item Value Reference Range Interpretation [...] % 20-55 L (test code = 2590) [id number] 05:11:00 Test Item Value Reference Range Interpretation Comments PHOSPHORUS (BEAKER) (test code = 3.6 mg/dL 2.3-4.7 604) [id number] 05:11:00 Test Item Value Reference Range Interpretation Comments MAGNESIUM (BEAKER) (test code = 2.0 mg/dL 1.6-2.6 627) BASIC METABOLIC [id number] 05:11:00 Test Item Value Reference Range Interpretation [...] H (BEAKER) (test code = 700) CALCIUM, [id number] 04:58:00 Test Item Value Reference Range Interpretation Comments CALCIUM IONIZED (BEAKER) (test 1.04 mmol/L 1.12-1.27 L code = 698) PH, BLOOD (BEAKER) (test code = 7.41 1810) RETICULOCYTE [id number] 04:51:00 Test Item Value Reference Range Interpretation Comments RETICULOCYTE COUNT PCT (BEAKER) (test 1.2 % 0.5-1.7 code = 575) POCT-GLUCOSE [id number] 20:49:00 Test Item Value Reference Range Interpretation Comments POC-GLUCOSE METER 202 mg/dL 70-110 H TESTED AT [facility] 6720 (BEAKER) (test code = [facility] 1538) [address] CREATININE, RANDOM [id number] 18:38:00 Test Item Value Reference Range Interpretation Comments CREATININE URINE (BEAKER) (test 56.3 mg/dL code = 375) Reference Range: No NormalsPROTEIN, RANDOM [id number] 18:38:00 Test Item Value Reference Range Interpretation Comments PROTEIN, URINE (BEAKER) (test code 189 mg/dL 0-14 H = 1569) URINALYSIS W/ [id number] 18:34:00 Test Item Value Reference Range Interpretation [...] 516) SOURCE(BEAKER) (test code = Urine, Voided 9872) POCT-GLUCOSE [id number] 17:38:00 Test Item Value Reference Range Interpretation Comments POC-GLUCOSE METER 143 mg/dL 70-110 H TESTED AT [place] [address] (BEAKER) (test code = [place]IANO [place] 1538) [address] POCT-GLUCOSE [id number] 12:30:00 Test Item Value Reference Range Interpretation Comments POC-GLUCOSE METER 218 mg/dL 70-110 H TESTED AT [place] [address] (BEAKER) (test code = JULIANO [place] 1538) [address] POCT-GLUCOSE [id number] 08:00:00 Test Item Value Reference Range Interpretation Comments POC-GLUCOSE METER 134 mg/dL 70-110 H TESTED AT [place] [address] (BEAKER) (test code = JULIANO Osborne [facility] 1538) [address] CBC W/PLT COUNT & AUTO [id number] 04:23:00 Test Item Value Reference Range Interpretation [...] 0-1 PERCENT (BEAKER) (test code = 2806) BASIC METABOLIC [id number] 04:13:00 Test Item Value Reference Range Interpretation [...] S NOT APPLICABLE FOR DIALYSIS PATIEN TS. [id number] 04:10:00 Test Item Value Reference Range Interpretation Comments PHOSPHORUS (BEAKER) (test code = 4.9 mg/dL 2.3-4.7 H 604) [id number] 04:10:00 Test Item Value Reference Range Interpretation Comments MAGNESIUM (BEAKER) (test code = 1.4 mg/dL 1.6-2.6 L 627) [id number] 04:08:00 Test Item Value Reference Range Interpretation Comments FIBRINOGEN LEVEL (BEAKER) (test 548 mg/dl 225-434 H code = 658) [id number] 04:08:00 Test Item Value Reference Range Interpretation Comments PARTIAL THROMBOPLASTIN TIME 37.7 seconds 22.5-36.0 H (BEAKER) (test code = 760) PROTHROMBIN [id number] 04:07:00 Test Item Value Reference Range Interpretation Comments PROTIME (BEAKER) (test code = 16.2 seconds 11.7-14.7 H 759) INR (BEAKER) (test code = 370) 1.3 <=5.9 RECOMMENDED COUMADIN/WARFARIN INR THERAPY RANGESSTANDARD DOSE: 2.0 - 3.0 Includes: PROPHYLAXIS forvenous thrombosis, systemic embolization; TREATMENT for venous thrombosis and/or pulmonary embolus.HIGH RISK: Target INR is 2.5-3.5 for patients with mechanical heart valves.[id number] 16:59:00 Test Item Value Reference Range Interpretation Comments ACTIVATED CLOTTING TIME 219 sec TEST ED AT [place] [address] ([facility]) (test code = JULIANO Osborne [place] 441) [address] BASIC METABOLIC [id number] 14:25:00 Test Item Value Reference Range Interpretation [...] NOT APPLICABLE FOR DIALYSIS PATIEN TS. POCT-GLUCOSE [id number] 13:21:00 Test Item Value Reference Range Interpretation Comments POC-GLUCOSE METER 170 mg/dL 70-110 H TESTED AT [place] [address] ([facility]) (test code = [facility] Dylon [facility] 1538) [address] POTASSIUM-STAT [id number] 13:20:00 Test Item Value Reference Range Interpretation Comments POTASSIUM (BEAKER) (test code = 4.2 meq/L 3.6-5.5 379) SODIUM NA-STAT [id number] 13:20:00 Test Item Value Reference Range Interpretation Comments SODIUM (BEAKER) (test code = 381) 133 meq/L 135-148 L HGB/HCT (H&H) - STAT [id number] 12:34:00 Test Item Value Reference Range Interpretation Comments HEMOGLOBIN (BEAKER) (test code = 10.8 g/dL 12.0-15.0 L 410) HEMATOCRIT (BEAKER) (test code = 32.0 % 36.0-45.0 L 411) POTASSIUM-STAT [id number] 08:15:00 Test Item Value Reference Range Interpretation Comments POTASSIUM (BEAKER) (test code = 4.1 meq/L 3.6-5.5 379) BLOOD GAS, [id number] 08:15:00 Test Item Value Reference Range Interpretation [...] code = 1819) 70.0 % SODIUM NA-STAT [id number] 08:15:00 Test Item Value Reference Range Interpretation Comments SODIUM (BEAKER) (test code = 381) 130 meq/L 135-148 L GLUCOSE-STAT [id number] 08:15:00 Test Item Value Reference Range Interpretation Comments GLUCOSE RANDOM (BEAKER) (test code 172 mg/dL 70-110 H = 652) HGB/HCT (H&H) - STAT [id number] 08:15:00 Test Item Value Reference Range Interpretation Comments HEMOGLOBIN (BEAKER) (test code = 8.8 g/dL 12.0-15.0 L 410) HEMATOCRIT (BEAKER) (test code = 26.0 % 36.0-45.0 L 411) BASIC METABOLIC [id number] 07:37:00 Test Item Value Reference Range Interpretation [...] PATIEN TS. CBC W/PLT COUNT & AUTO [id number] 07:20:00 Test Item Value Reference Range Interpretation [...] PERCENT (BEAKER) (test code = 2801) POCT-GLUCOSE [id number] 07:03:00 Test Item Value Reference Range Interpretation Comments POC-GLUCOSE METER 186 mg/dL 70-110 H TESTED AT [facility] 6720 (BEAKER) (test code = JULIANO Osborne [facility] 1538) [address] B-TYPE NATRIURETIC FACTOR (BNP)[id number] 12:44:00 Test Item Value Reference Range Interpretation Comments B-TYPE NATRIURETIC PEPTIDE 1264 pg/mL 0-100 H (BEAKER) (test code = 700) [id number] 12:36:00 Test Item Value Reference Range Interpretation Comments MAGNESIUM (BEAKER) (test code = 1.6 mg/dL 1.6-2.6 627) BASIC METABOLIC [id number] 12:36:00 Test Item Value Reference Range Interpretation [...] NOT APPLICABLE FOR DIALYSIS PATIEN TS. POCT-GLUCOSE [id number] 12:04:00 Test Item Value Reference Range Interpretation Comments POC-GLUCOSE METER 274 mg/dL 70-110 H TESTED AT [facility] 6720 ([facility] (test code = [facility] 1538) [address] POCT-GLUCOSE [id number] 07:21:00 Test Item Value Reference Range Interpretation Comments POC-GLUCOSE METER 137 mg/dL 70-110 H TESTED AT [place] [address] ([facility]) (test code = [facility] 1538) [address] BASIC METABOLIC [id number] 05:10:00 Test Item Value Reference Range Interpretation [...] 0-0 (BEAKER) (test code = 413) POCT-GLUCOSE [id number] 21:23:00 Test Item Value Reference Range Interpretation Comments POC-GLUCOSE METER 240 mg/dL 70-110 H TESTED AT [facility] 6720 ([facility]) (test code = JULIANO Osborne [place] 1538) [address] POCT-GLUCOSE [id number] 16:42:00 Test Item Value Reference Range Interpretation Comments POC-GLUCOSE METER 234 mg/dL 70-110 H TESTED AT [facility] 6720 ([facility]) (test code = JULIANO Osborne [place] 1538) [address] POCT-GLUCOSE [id number] 13:22:00 Test Item Value Reference Range Interpretation Comments POC-GLUCOSE METER 166 mg/dL 70-110 H TESTED AT [facility] 6720 ([facility]) (test code = JULIANO Osborne [facility] 1538) [address] RAD, CHEST, 1 VIEW, NON [id number] 09:43:00Reason for exam:->s/p ACBShould this be performed [...] Lynda Ringepemily Verified Date/Time: 05/31/2017 09:43:30 ReadingLocation: [facility] B1 C013X Ortho Consult Reading Room POCT-GLUCOSE [id number] 06:57:00 Test Item Value Reference Range Interpretation Comments POC-GLUCOSE METER 136 mg/dL 70-110 H TESTED AT [facility] 6720 ([facility]) (test code = JULIANO Osborne [facility] 1538) [address] CALCIUM, [id number] 06:41:00 Test Item Value Reference Range Interpretation Comments CALCIUM IONIZED (BEAKER) (test 1.10 mmol/L 1.12-1.27 L code = 698) PH, BLOOD (BEAKER) (test code = 7.42 1810) [id number] 06:17:00 Test Item Value Reference Range Interpretation Comments PHOSPHORUS (BEAKER) (test code = 3.3 mg/dL 2.3-4.7 604) [id number] 06:17:00 Test Item Value Reference Range Interpretation Comments MAGNESIUM (BEAKER) (test code = 1.8 mg/dL 1.6-2.6 627) BASIC METABOLIC [id number] 06:17:00 Test Item Value Reference Range Interpretation [...] PATIEN TS. CBC W/PLT COUNT & AUTO [id number] 05:07:00 Test Item Value Reference Range Interpretation [...] PERCENT (BEAKER) (test code = 2801) POCT-GLUCOSE [id number] 20:56:00 Test Item Value Reference Range Interpretation Comments POC-GLUCOSE METER 196 mg/dL 70-110 H TESTED AT [facility] 67 ([facility] ([facility] = [facility] 1538) [address] POCT-GLUCOSE [id number] 16:42:00 Test Item Value Reference Range Interpretation Comments POC-GLUCOSE METER 196 mg/dL 70-110 H TESTED AT [facility] 67 ([facility]) (test code = [facility] Dylon [facility] 1538) [address] POCT-GLUCOSE [id number] 11:45:00 Test Item Value Reference Range Interpretation Comments POC-GLUCOSE METER 215 mg/dL 70-110 H TESTED AT [place] [address] ([facility]) (test code = [facility] Dylon [facility] 1538) [address] RAD, CHEST, 1 VIEW, NON [id number] 11:15:00Reason for exam:->s/p ACBShould this be performed at the bedside?->YesFINAL REPORT Chest one view compared to May 28, 2017 Discussion: Airspace opacities are seen in both lower lung regions, probably atelectasis. Correlate clinically for infection. I could not exclude small effusions. No pneumothorax. Upper lungs clear. Signed: Jeannette Nava MDReport Verified Date/Time: 05/30/2017 11:15:07 Reading [facility] Reading Room CALCIUM, [id number] 09:21:00 Test Item Value Reference Range Interpretation Comments CALCIUM IONIZED (BEAKER) (test 1.11 mmol/L 1.12-1.27 L code = 698) PH, BLOOD (BEAKER) (test code = 7.36 1810) BASIC METABOLIC [id number] 07:37:00 Test Item Value Reference Range Interpretation [...] S NOT APPLICABLE FOR DIALYSIS PATIEN TS. [id number] 07:28:00 Test Item Value Reference Range Interpretation Comments PHOSPHORUS (BEAKER) (test code = 3.8 mg/dL 2.3-4.7 604) [id number] 07:28:00 Test Item Value Reference Range Interpretation Comments MAGNESIUM (BEAKER) (test code = 1.9 mg/dL 1.6-2.6 627) CBC W/PLT COUNT & AUTO [id number] 07:26:00 Test Item Value Reference Range Interpretation [...] 417) IMMATURE GRANULOCYTES-RELATIVE 1 % 0-1 PERCENT ([facility]) (test code = 2801) POCT-GLUCOSE [id number] 07:21:00 Test Item Value Reference Range Interpretation Comments POC-GLUCOSE METER 146 mg/dL 70-110 H TESTED AT [place] [address] ([facility]) (test code = [facility] 1538) [address] POCT-GLUCOSE [id number] 22:02:00 Test Item Value Reference Range Interpretation Comments POC-GLUCOSE METER 201 mg/dL 70-110 H TESTED AT [place] [address] ([facility]) (test code = [facility] 1538) [address] POCT-GLUCOSE [id number] 18:27:00 Test Item Value Reference Range Interpretation Comments POC-GLUCOSE METER 240 mg/dL 70-110 H TESTED AT [place] [address] ([facility]) (test code = [facility] 1538) [address] POCT-GLUCOSE [id number] 12:13:00 Test Item Value Reference Range Interpretation Comments POC-GLUCOSE METER 193 mg/dL 70-110 H TESTED AT [place] [address] ([facility]) (test code = [facility] 1538) [id number] POCT-GLUCOSE [id number] 09:02:00 Test Item Value Reference Range Interpretation Comments POC-GLUCOSE METER 132 mg/dL 70-110 H TESTED AT [place] [address] ([facility]) (test code = [facility] 1538) [address] CALCIUM, [id number] 05:42:00 Test Item Value Reference Range Interpretation Comments CALCIUM IONIZED ([facility]) (test 1.12 mmol/L 1.12-1.27 code = 698) PH, BLOOD ([facility]) (test code = 7.34 1810) COMPREHENSIVE METABOLIC [id number] 05:33:00 Test Item Value Reference Range Interpretation Comments TOTAL PROTEIN 5.9 gm/dL 6.0-8.3 L ([facility]) (test code = 770) ALBUMIN ([facility]) 2.7 g/dL 3.5-5.0 L (test code = 1145) ALKALINE PHOSPHATASE 130 U/L 40-150 ([facility]) (test code = 346) BILIRUBIN TOTAL 0.3 mg/dL 0.2-1.2 ([facility]) (test code = 377) SODIUM (BEAKER) [...] S NOT APPLICABLE FOR DIALYSIS PATIEN TS. [id number] 05:32:00 Test Item Value Reference Range Interpretation Comments PHOSPHORUS (BEAKER) (test code = 3.6 mg/dL 2.3-4.7 604) [id number] 05:32:00 Test Item Value Reference Range Interpretation Comments MAGNESIUM (BEAKER) (test code = 2.2 mg/dL 1.6-2.6 627) CBC W/PLT COUNT & AUTO [id number] 05:01:00 Test Item Value Reference Range Interpretation [...] PERCENT (BEAKER) (test code = 2801) POCT-GLUCOSE [id number] 21:04:00 Test Item Value Reference Range Interpretation Comments POC-GLUCOSE METER 165 mg/dL 70-110 H TESTED AT [facility] 6720 ([facility]) (test code = JULIANO [place] 1538) [address] POCT-GLUCOSE [id number] 17:30:00 Test Item Value Reference Range Interpretation Comments POC-GLUCOSE METER 236 mg/dL 70-110 H TESTED AT [facility] 6720 ([facility]) (test code = JULIANO Osborne [facility] 1538) [address] RAD, CHEST, 1 VIEW, NON [id number] 13:53:00Reason for exam:->assess for ill-defined opacityShould this [...] congested. Impression: No change. Signed: Luis Alberto [place] Verified Date/Time: 05/28/2017 13:53:03 Reading Location: [address] Radiology Reading Room POCT-GLUCOSE [id number] 11:53:00 Test Item Value Reference Range Interpretation Comments POC-GLUCOSE METER 215 mg/dL 70-110 H TESTED AT [facility] 6720 ([facility]) (test code = JULIANO Osborne [facility] 1538) [address] POCT-GLUCOSE [id number] 08:32:00 Test Item Value Reference Range Interpretation Comments POC-GLUCOSE METER 168 mg/dL 70-110 H TESTED AT [facility] 6720 ([facility]) (test code = JULIANO Osborne [facility] 1538) [address] CALCIUM, [id number] 05:44:00 Test Item Value Reference Range Interpretation Comments CALCIUM IONIZED (BEAKER) (test 1.09 mmol/L 1.12-1.27 L code = 698) PH, BLOOD ([facility]) (test code = 7.38 1810) [id number] 05:44:00 Test Item Value Reference Range Interpretation Comments PHOSPHORUS (BEAKER) (test code = 3.5 mg/dL 2.3-4.7 604) [id number] 05:44:00 Test Item Value Reference Range Interpretation Comments MAGNESIUM (BEAKER) (test code = 1.9 mg/dL 1.6-2.6 627) BASIC METABOLIC [id number] 05:44:00 Test Item Value Reference Range Interpretation [...] PATIEN TS. CBC W/PLT COUNT & AUTO [id number] 05:05:00 Test Item Value Reference Range Interpretation [...] PERCENT (BEAKER) (test code = 2801) POCT-GLUCOSE [id number] 21:03:00 Test Item Value Reference Range Interpretation Comments POC-GLUCOSE METER 173 mg/dL 70-110 H TESTED AT [place] [address] ([facility]) (test code = JULIANO Osborne [facility] 1538) [address] [id number] 18:15:00 Test Item Value Reference Range Interpretation Comments ACTIVATED CLOTTING TIME 147 sec TEST ED AT [place] [address] ([facility]) (test code = JULIANO Osborne [facility] 441) [address] [id number] 18:15:00 Test Item Value Reference Range Interpretation Comments ACTIVATED CLOTTING TIME 246 sec TEST ED AT [place] [address] ([facility]) (test code = JULIANO Osborne [facility] 441) [address] POCT-GLUCOSE [id number] 12:39:00 Test Item Value Reference Range Interpretation Comments POC-GLUCOSE METER 219 mg/dL 70-110 H TESTED AT [place] [address] ([facility]) (test code = JULIANO Osborne [facility] 1538) [address] RAD, CHEST, 1 VIEW, NON [id number] 10:11:00Reason for exam:->pl effusionShould this be performed at the bedside?->YesFINAL REPORT Chest one view compared to May 26 Discussion: There is cardiac prominence. Upper lungs are clear. Ill-defined basilar densities are similar probably atelectasis. No gross effusion or pneumothorax with bilateral chest tubes in place. Signed: Jeannette Nava Verified Date/Time: 05/27/2017 10:11:44 Reading Location: [facility] Radiology Reading Room POCT-GLUCOSE METER 2017-05-27 07:05:00 Test Item Value Reference Range Interpretation Comments POC-GLUCOSE METER 167 mg/dL 70-110 H TESTED AT [facility] 6720 (BEAKER) (test code = JULIANO Osborne [facility] 1538) [address] CALCIUM, [id number] 06:20:00 Test Item Value Reference Range Interpretation Comments CALCIUM IONIZED (BEAKER) (test 0.98 mmol/L 1.12-1.27 L code = 698) PH, BLOOD (BEAKER) (test code = 7.50 1810) [id number] 04:56:00 Test Item Value Reference Range Interpretation Comments PHOSPHORUS (BEAKER) (test code = 2.6 mg/dL 2.3-4.7 604) [id number] 04:56:00 Test Item Value Reference Range Interpretation Comments MAGNESIUM (BEAKER) (test code = 2.0 mg/dL 1.6-2.6 627) BASIC METABOLIC [id number] 04:56:00 Test Item Value Reference Range Interpretation [...] PATIEN TS. CBC W/PLT COUNT & AUTO [id number] 04:36:00 Test Item Value Reference Range Interpretation [...] PERCENT (BEAKER) (test code = 2801) POCT-GLUCOSE [id number] 21:29:00 Test Item Value Reference Range Interpretation Comments POC-GLUCOSE METER 147 mg/dL 70-110 H TESTED AT [place] [address] ([facility]) (test code = JULIANO Osborne [facility] 1538) [address] POCT-GLUCOSE [id number] 17:51:00 Test Item Value Reference Range Interpretation Comments POC-GLUCOSE METER 224 mg/dL 70-110 H TESTED AT [place] [address] ([facility]) (test code = JULIANO Osborne [facility] 1538) [address] POCT-GLUCOSE [id number] 13:53:00 Test Item Value Reference Range Interpretation Comments POC-GLUCOSE METER 182 mg/dL 70-110 H TESTED AT [place] [address] ([facility]) (test code = JULIANO Osborne [facility] 1538) [address] RAD, CHEST, 1 VIEW, NON [id number] 08:44:00Reason for exam:->pl effusionShould this be performed [...] MDReport Verified Date/Time: 05/26/2017 08:44:25 Reading Location: [address] Radiology Reading Room POCT- GLUCOSE [id number] 07:43:00 Test Item Value Reference Range Interpretation Comments POC-GLUCOSE METER 113 mg/dL 70-110 H TESTED AT [facility] 6720 (BEAKER) (test code = JULIANO [place] 1538) [address] CALCIUM, [id number] 06:31:00 Test Item Value Reference Range Interpretation Comments CALCIUM IONIZED (BEAKER) (test 1.07 mmol/L 1.12-1.27 L code = 698) PH, BLOOD (BEAKER) (test code = 7.38 1810) [id number] 04:51:00 Test Item Value Reference Range Interpretation Comments PHOSPHORUS (BEAKER) (test code = 3.2 mg/dL 2.3-4.7 604) [id number] 04:51:00 Test Item Value Reference Range Interpretation Comments MAGNESIUM (BEAKER) (test code = 2.1 mg/dL 1.6-2.6 627) BASIC METABOLIC [id number] 04:51:00 Test Item Value Reference Range Interpretation [...] PATIEN TS. CBC W/PLT COUNT & AUTO [id number] 04:27:00 Test Item Value Reference Range Interpretation [...] PERCENT (BEAKER) (test code = 2801) POCT-GLUCOSE [id number] 23:48:00 Test Item Value Reference Range Interpretation Comments POC-GLUCOSE METER 123 mg/dL 70-110 H TESTED AT [facility] 6720 (BEAKER) (test [facility] = [facility] 1538) [address] POCT-GLUCOSE [id number] 16:46:00 Test Item Value Reference Range Interpretation Comments POC-GLUCOSE METER 178 mg/dL 70-110 H TESTED AT [facility] 6720 (BEAKER) (test code = [facility] 1538) [address] BASIC METABOLIC [id number] 05:53:00 Test Item Value Reference Range Interpretation [...] S NOT APPLICABLE FOR DIALYSIS PATIEN TS. [id number] 05:52:00 Test Item Value Reference Range Interpretation Comments PHOSPHORUS (BEAKER) (test code = 4.2 mg/dL 2.3-4.7 604) [id number] 05:52:00 Test Item Value Reference Range Interpretation Comments MAGNESIUM (BEAKER) (test code = 2.3 mg/dL 1.6-2.6 627) CALCIUM, [id number] 05:27:00 Test Item Value Reference Range Interpretation Comments CALCIUM IONIZED (BEAKER) (test 1.12 mmol/L 1.12-1.27 code = 698) PH, BLOOD (BEAKER) (test code = 7.38 1810) CBC W/PLT COUNT & AUTO [id number] 05:07:00 Test Item Value Reference Range Interpretation [...] = 2801) RAD, CHEST, 1 VIEW, NON [id number] 04:45:00Reason for exam:->pl effusionShould this be performed [...] Verified Date/Time: 05/25/2017 04:45:08 Reading Location: [address] Body Reading Room POCT-GLUCOSE [id number] 01:52:00 Test Item Value Reference Range Interpretation Comments POC-GLUCOSE METER 126 mg/dL 70-110 H TESTED AT [place] [address] ([facility]) (test code = JULIANO [place] 1538) [address] POCT-GLUCOSE [id number] 13:07:00 Test Item Value Reference Range Interpretation Comments POC-GLUCOSE METER 118 mg/dL 70-110 H TESTED AT [facility] 6720 ([facility]) (test code = JULIANO Osborne [facility] 1538) [address] BRONCHIAL CULTURE + GRAM [id number] 11:35:00 Test Item Value Reference Range Interpretation Comments CULTURE ([facility]) (test code = 1095) Amikacin (test [...] <1+ gram (BEAKER) (test code = positive 415913) cocci in pairs GRAM STAIN RESULT 1+ gram (BEAKER) (test code = variable rods 804362) 1+ Normal respiratory todd presentRAD, CHEST, 1 VIEW, NON [id number] 06:50:00Reason for exam:->pl effusionShould this be performed [...] Verified Date/Time: 05/24/2017 06:50:08 Reading Location: [address] Body Reading Room BASIC METABOLIC [id number] 04:19:00 Test Item Value Reference Range Interpretation [...] NOT APPLICABLE FOR DIALYSIS PATIEN TS. CALCIUM, [id number] 04:16:00 Test Item Value Reference Range Interpretation Comments CALCIUM IONIZED (BEAKER) (test 1.06 mmol/L 1.12-1.27 L code = 698) PH, BLOOD (BEAKER) (test code = 7.40 1810) [id number] 04:11:00 Test Item Value Reference Range Interpretation Comments PHOSPHORUS (BEAKER) (test code = 6.0 mg/dL 2.3-4.7 H 604) [id number] 04:11:00 Test Item Value Reference Range Interpretation Comments MAGNESIUM (BEAKER) (test code = 2.4 mg/dL 1.6-2.6 627) CBC W/PLT COUNT & AUTO [id number] 03:50:00 Test Item Value Reference Range Interpretation [...] PERCENT (BEAKER) (test code = 2801) POCT-GLUCOSE [id number] 20:45:00 Test Item Value Reference Range Interpretation Comments POC-GLUCOSE METER 143 mg/dL 70-110 H TESTED AT [facility] 6720 (BEAKER) (test code = JULIANO REYEZ 1538) [address] POCT-GLUCOSE [id number] 20:45:00 Test Item Value Reference Range Interpretation Comments POC-GLUCOSE METER 145 mg/dL 70-110 H TESTED AT [facility] 6720 (BEAKER) (test code = JULIANO [place] 1538) [address] [id number] 13:37:00 Test Item Value Reference Range Interpretation Comments PREALBUMIN (BEAKER) 10 mg/dL 14-45 L Specimen slightly (test code = 586) hemolyzed OXYGEN SATURATION, [id number] 12:31:00 Test Item Value Reference Range Interpretation Comments O2 SATURATION (MEASURED) (BEAKER) 94.5 % (test code = 1455) [id number] 11:02:00 Test Item Value Reference Range Interpretation Comments PREALBUMIN (BEAKER) (test code = 10 mg/dL 14-45 L 586) RAD, CHEST, 1 VIEW, NON [id number] 05:14:00while patient is intubated or has chest [...] MDReport Verified Date/Time: 05/23/2017 05:14:04 Reading Location: [facility] C013Y CT Body Reading Room BASIC METABOLIC [id number] 03:48:00 Test Item Value Reference Range Interpretation [...] S NOT APPLICABLE FOR DIALYSIS PATIEN TS. [id number] 03:46:00 Test Item Value Reference Range Interpretation Comments MAGNESIUM (BEAKER) 2.4 mg/dL 1.6-2.6 Specimen slightly (test code = 627) hemolyzed [id number] 03:46:00 Test Item Value Reference Range Interpretation Comments PHOSPHORUS (BEAKER) 6.5 mg/dL 2.3-4.7 H Specimen slightly (test code = 604) hemolyzed CBC W/PLT COUNT & AUTO [id number] 03:26:00 Test Item Value Reference Range Interpretation [...] (BEAKER) (test code = 2801) BLOOD GAS, [id number] 03:18:00 Test Item Value Reference Range Interpretation [...] (test code = 1819) 36.0 % CALCIUM, [id number] 16:32:00 Test Item Value Reference Range Interpretation Comments CALCIUM IONIZED (BEAKER) (test 1.11 mmol/L 1.12-1.27 L code = 698) PH, BLOOD (BEAKER) (test code = 7.39 1810) BASIC METABOLIC [id number] 15:43:00 Test Item Value Reference Range Interpretation [...] NOT APPLICABLE FOR DIALYSIS PATIEN TS. POCT-GLUCOSE [id number] 12:53:00 Test Item Value Reference Range Interpretation Comments POC-GLUCOSE METER 118 mg/dL 70-110 H TESTED AT [facility] 6720 (BEAKER) (test code = JULIANO [place] 1538) [address] BLOOD GAS, [id number] 10:42:00 Test Item Value Reference Range Interpretation [...] (test code = 1819) 40.0 % POCT-GLUCOSE [id number] 06:46:00 Test Item Value Reference Range Interpretation Comments POC-GLUCOSE METER 106 mg/dL 70-110 TESTED AT [facility] 6720 (BEAKER) (test code = JULIANO [place] 1538) [address] RAD, CHEST, 1 VIEW, NON [id number] 05:05:00while patient is intubated or has chest [...] MDReport Verified Date/Time: 05/22/2017 05:05:00 Reading Location: [place] [address] CT Body ReadingRoom BASIC METABOLIC [id number] 05:00:00 Test Item Value Reference Range Interpretation [...] S NOT APPLICABLE FOR DIALYSIS PATIEN TS. [id number] 04:41:00 Test Item Value Reference Range Interpretation Comments PHOSPHORUS (BEAKER) (test code = 6.4 mg/dL 2.3-4.7 H 604) [id number] 04:41:00 Test Item Value Reference Range Interpretation Comments MAGNESIUM (BEAKER) (test code = 2.6 mg/dL 1.6-2.6 627) CALCIUM, [id number] 04:26:00 Test Item Value Reference Range Interpretation Comments CALCIUM IONIZED (BEAKER) (test 1.09 mmol/L 1.12-1.27 L code = 698) PH, BLOOD (BEAKER) (test code = 7.40 1810) OXYGEN SATURATION, [id number] 04:25:00 Test Item Value Reference Range Interpretation Comments O2 SATURATION (MEASURED) (BEAKER) 77.0 % (test code = 1455) CBC W/PLT COUNT & AUTO [id number] 04:17:00 Test Item Value Reference Range Interpretation [...] code = 2801) LACTIC ACID, ARTERIAL, WHOLE [id number] 00:07:00 Test Item Value Reference Range Interpretation Comments LACTATE BLOOD 1.0 mmol/L 0.5-2.2 Specimen sligh tly ARTERIAL (2) (BEAKER) hemoly zed (test code = 2874) Effective 08/02/2015: Units/Reference Range ChangeNew: 0.5-2.2 mmol/L Previous: 5-20 mg/dLPOCT-GLUCOSE [id number] 23:47:00 Test Item Value Reference Range Interpretation Comments POC-GLUCOSE METER 180 mg/dL 70-110 H TESTED AT [facility] 6720 (BEAKER) (test code = JULIANO REYE[place] 1538) [address] BLOOD GAS, [id number] 23:46:00 Test Item Value Reference Range Interpretation [...] code = 1819) 100.0 % SODIUM NA-STAT [id number] 23:46:00 Test Item Value Reference Range Interpretation Comments SODIUM (BEAKER) (test code = 381) 134 meq/L 135-148 L GLUCOSE-STAT [id number] 23:46:00 Test Item Value Reference Range Interpretation Comments GLUCOSE RANDOM (BEAKER) (test code 119 mg/dL 70-110 H = 652) HGB/HCT (H&H) - STAT [id number] 23:46:00 Test Item Value Reference Range Interpretation Comments HEMOGLOBIN (BEAKER) (test code = 8.8 g/dL 12.0-15.0 L 410) HEMATOCRIT (BEAKER) (test code = 26.0 % 36.0-45.0 L 411) OXYGEN SATURATION, [id number] 23:45:00 Test Item Value Reference Range Interpretation Comments O2 SATURATION (MEASURED) (BEAKER) 68.1 % (test code = 1455) POTASSIUM-STAT [id number] 23:45:00 Test Item Value Reference Range Interpretation Comments POTASSIUM (BEAKER) (test code = 5.5 meq/L 3.6-5.5 379) POCT-GLUCOSE [id number] 20:58:00 Test Item Value Reference Range Interpretation Comments POC-GLUCOSE METER 133 mg/dL 70-110 H TESTED AT [facility] 6720 ([facility]) (test code = JULIANO [place] 1538) [address] POCT-GLUCOSE [id number] 17:58:00 Test Item Value Reference Range Interpretation Comments POC-GLUCOSE METER 210 mg/dL 70-110 H TESTED AT [facility] 6720 ([facility]) (test code = JULIANO [place] 1538) [address] POCT-GLUCOSE [id number] 17:58:00 Test Item Value Reference Range Interpretation Comments POC-GLUCOSE METER 211 mg/dL 70-110 H TESTED AT [place] [address] ([facility]) (test code = JULIANO Osborne [place] 1538) [address] POCT-GLUCOSE [id number] 17:58:00 Test Item Value Reference Range Interpretation Comments POC-GLUCOSE METER 232 mg/dL 70-110 H TESTED AT [place] [address] (BEAKER) (test code = JULIANO Osborne [place] 1538) [address] POCT-GLUCOSE [id number] 17:58:00 Test Item Value Reference Range Interpretation Comments POC-GLUCOSE METER 262 mg/dL 70-110 H TESTED AT [place] [address] (BEAKER) (test code = JULIANO Osborne [facility] 1538) [address] BLOOD GAS, [id number] 17:01:00 Test Item Value Reference Range Interpretation [...] (test code = 1819) 60.0 % POTASSIUM-STAT [id number] 17:00:00 Test Item Value Reference Range Interpretation Comments POTASSIUM (BEAKER) (test code = 4.8 meq/L 3.6-5.5 379) POCT-GLUCOSE [id number] 15:52:00 Test Item Value Reference Range Interpretation Comments POC-GLUCOSE METER 267 mg/dL 70-110 H TESTED AT [place] [address] (BEAKER) (test code = JULIANO Osborne [place] 1538) [address] POCT-GLUCOSE [id number] 14:42:00 Test Item Value Reference Range Interpretation Comments POC-GLUCOSE METER 231 mg/dL 70-110 H TESTED AT [facility] 6720 (BEAKER) (test code = JULIANO [place] 1538) [address] BODY FLUID CELL COUNT WITH [id number] 14:41:00 Test Item Value Reference Range Interpretation [...] Tube (test code = 2873) BASIC METABOLIC [id number] 14:11:00 Test Item Value Reference Range Interpretation [...] S NOT APPLICABLE FOR DIALYSIS PATIEN TS. [id number] 14:08:00 Test Item Value Reference Range Interpretation Comments PHOSPHORUS (BEAKER) (test code = 7.2 mg/dL 2.3-4.7 H 604) [id number] 14:08:00 Test Item Value Reference Range Interpretation Comments MAGNESIUM (BEAKER) (test code = 2.6 mg/dL 1.6-2.6 627) POCT-GLUCOSE [id number] 12:49:00 Test Item Value Reference Range Interpretation Comments POC-GLUCOSE METER 224 mg/dL 70-110 H TESTED AT [facility] 67 (BEAKER) (test code = JULIANO Osborne [facility] 1538) [address] POCT-GLUCOSE [id number] 12:49:00 Test Item Value Reference Range Interpretation Comments POC-GLUCOSE METER 248 mg/dL 70-110 H TESTED AT [facility] 67 ([facility] (test code = [facility] [place] [facility] 1538) [address] RAD, CHEST, 1 VIEW, NON [id number] 12:32:00Reason for exam:->re-intubationShould this be performed at [...] MDReport Verified Date/Time: 05/21/2017 12:32:08 Reading Location: [facility] Radiology Reading Room POTASSIUM-STAT [id number] 12:28:00 Test Item Value Reference Range Interpretation Comments POTASSIUM (BEAKER) (test code = 5.5 meq/L 3.6-5.5 379) BLOOD GAS, [id number] 12:28:00 Test Item Value Reference Range Interpretation [...] code = 1819) 100.0 % BLOOD GAS, [id number] 10:53:00 Test Item Value Reference Range Interpretation [...] 36.0 % RAD, CHEST, 1 VIEW, NON [id number] 08:46:00while patient is intubated or has chest [...] MDReport Verified Date/Time: 05/21/2017 08:46:27 Reading Location: [facility] Rad[facility] Reading Room BLOOD GAS, [id number] 05:41:00 Test Item Value Reference Range Interpretation [...] (BEAKER) (test code = 1819) 40 CALCIUM, [id number] 04:35:00 Test Item Value Reference Range Interpretation Comments CALCIUM IONIZED (BEAKER) (test 1.13 mmol/L 1.12-1.27 code = 698) PH, BLOOD (BEAKER) (test code = 7.32 1810) BLOOD GAS, [id number] 04:28:00 Test Item Value Reference Range Interpretation [...] (BEAKER) (test code = 1819) 40.0 % [id number] 04:20:00 Test Item Value Reference Range Interpretation Comments PHOSPHORUS (BEAKER) (test code = 6.2 mg/dL 2.3-4.7 H 604) [id number] 04:20:00 Test Item Value Reference Range Interpretation Comments MAGNESIUM (BEAKER) (test code = 2.4 mg/dL 1.6-2.6 627) HEPATIC FUNCTION [id number] 04:20:00 Test Item Value Reference Range Interpretation [...] = 11 U/L 6-55 347) BASIC METABOLIC [id number] 04:20:00 Test Item Value Reference Range Interpretation [...] APPLICABLE FOR DIALYSIS PATIEN TS. OXYGEN SATURATION, [id number] 04:18:00 Test Item Value Reference Range Interpretation Comments O2 SATURATION (MEASURED) (BEAKER) 68.0 % (test code = 1455) LACTIC ACID, ARTERIAL, WHOLE [id number] 04:12:00 Test Item Value Reference Range Interpretation Comments LACTATE BLOOD ARTERIAL (2) 1.0 mmol/L 0.5-2.2 (BEAKER) (test code = 2874) Effective 08/02/2015: Units/Reference Range ChangeNew: 0.5-2.2 mmol/L Previous: 5-20 mg/dLCBC W/PLT COUNT & AUTO [id number] 04:00:00 Test Item Value Reference Range Interpretation [...] (BEAKER) (test code = 2801) BLOOD GAS, [id number] 00:06:00 Test Item Value Reference Range Interpretation [...] (BEAKER) (test code = 1819) 40.0 % [id number] 18:55:00 Test Item Value Reference Range Interpretation Comments PHOSPHORUS (BEAKER) (test code = 4.8 mg/dL 2.3-4.7 H 604) [id number] 18:55:00 Test Item Value Reference Range Interpretation Comments MAGNESIUM (BEAKER) (test code = 2.3 mg/dL 1.6-2.6 627) BASIC METABOLIC [id number] 18:55:00 Test Item Value Reference Range Interpretation [...] DIALYSIS PATIEN TS. LACTIC ACID, ARTERIAL, WHOLE [id number] 18:53:00 Test Item Value Reference Range Interpretation Comments LACTATE BLOOD 0.9 mmol/L 0.5-2.2 Specimen sligh tly ARTERIAL (2) (BEAKER) hemoly zed (test code = 2874) Effective 08/02/2015: Units/Reference Range ChangeNew: 0.5-2.2 mmol/L Previous: 5-20 mg/dLRAD, CHEST, 1 VIEW, NON [id number] 18:44:00Reason for exam:- >postop cardiacShould this be [...] MDReport Verified Date/Time: 05/20/2017 18:44:30 Reading Location: [facility] B1 [id number] Consult Reading Room Electronically signed by: MIGUEL BHAKTA M.D. on05/20/2017 06:44 PMCBC W/PLT COUNT & AUTO [id number] 18:38:00 Test Item Value Reference Range Interpretation [...] (BEAKER) (test code = 2801) OXYGEN SATURATION, [id number] 18:36:00 Test Item Value Reference Range Interpretation Comments O2 SATURATION (MEASURED) (BEAKER) 72.5 % (test code = 1455) From distal port of IJ central venous catheterSODIUM NA-STAT [id number] 18:30:00 Test Item Value Reference Range Interpretation Comments SODIUM (BEAKER) (test code = 381) 132 meq/L 135-148 L HGB/HCT (H&H) - STAT [id number] 18:30:00 Test Item Value Reference Range Interpretation Comments HEMOGLOBIN (BEAKER) (test code = 9.4 g/dL 12.0-15.0 L 410) HEMATOCRIT (BEAKER) (test code = 28.0 % 36.0-45.0 L 411) GLUCOSE-STAT [id number] 18:30:00 Test Item Value Reference Range Interpretation Comments GLUCOSE RANDOM (BEAKER) (test code 159 mg/dL 70-110 H = 652) BLOOD GAS, [id number] 18:30:00 Test Item Value Reference Range Interpretation [...] (test code = 1819) 60.0 % CALCIUM, [id number] 18:30:00 Test Item Value Reference Range Interpretation Comments CALCIUM IONIZED (BEAKER) (test 0.94 mmol/L 1.12-1.27 L code = 698) PH, BLOOD (BEAKER) (test code = 7.34 1810) POTASSIUM-STAT [id number] 18:28:00 Test Item Value Reference Range Interpretation [...] (test 0.0 % 0.0-5.0 code = 1414) [id number] 17:53:00 Test Item Value Reference Range Interpretation Comments ACTIVATED CLOTTING TIME 103 sec TEST ED AT [place] [address] (BEAKER) (test code = [place] 441) [address] [id number] 17:53:00 Test Item Value Reference Range Interpretation Comments ACTIVATED CLOTTING TIME 466 sec TEST ED AT [place] [address] (BEAKER) (test code = J[place]IANO [place] [address]) [id number] 17:53:00 Test Item Value Reference Range Interpretation Comments ACTIVATED CLOTTING TIME 543 sec TEST ED AT [place] [address] ([facility]) (test code = J[place]IANO [place] [address]) [address] [id number] 17:53:00 Test Item Value Reference Range Interpretation Comments ACTIVATED CLOTTING TIME 549 sec TEST ED AT [place] [address] ([facility]) (test code = J[place]IANO [place] [address]) [address] [id number] 17:53:00 Test Item Value Reference Range Interpretation Comments ACTIVATED CLOTTING TIME 632 sec TEST ED AT [place] [address] ([facility]) (test code = J[place]IANO [place] [address]) [address] [id number] 17:53:00 Test Item Value Reference Range Interpretation Comments ACTIVATED CLOTTING TIME 494 sec TEST ED AT [place] [address] ([facility]) (test code = [place]IANO [place] 441) [address] [id number] 17:53:00 Test Item Value Reference Range Interpretation Comments ACTIVATED CLOTTING TIME 587 sec TEST ED AT [place] [address] ([facility]) (test code = [place]IANO [place] [address]) [address] [id number] 17:53:00 Test Item Value Reference Range Interpretation Comments ACTIVATED CLOTTING TIME 626 sec TEST ED AT [place] [address] ([facility]) (test code = JULIANO Osborne [place] 441) [address] [id number] 17:52:00 Test Item Value Reference Range Interpretation Comments ACTIVATED CLOTTING TIME 808 sec TEST ED AT [place] [address] ([facility]) (test code = JULIANO Osborne [facility] 441) [address] [id number] 16:54:00 Test Item Value Reference Range Interpretation Comments PARTIAL THROMBOPLASTIN TIME 40.2 seconds 22.5-36.0 H ([facility]) (test code = 760) [id number] 16:53:00 Test Item Value Reference Range Interpretation Comments FIBRINOGEN LEVEL ([facility]) (test 306 mg/dl 225-434 code = 658) PROTHROMBIN [id number] 16:50:00 Test Item Value Reference Range Interpretation Comments PROTIME ([facility]) (test code = 19.6 seconds 11.7-14.7 H 759) INR ([facility]) (test code = 370) 1.7 <=5.9 RECOMMENDED COUMADIN/WARFARIN INR THERAPY RANGESSTANDARD DOSE: 2.0 - 3.0 Includes: PROPHYLAXIS forvenous thrombosis, systemic embolization; TREATMENT for venous thrombosis and/or pulmonary embolus.HIGH RISK: Target INR is 2.5-3.5 for patients with mechanical heart valves.PLATELET [id number] 16:45:00 Test Item Value Reference Range Interpretation Comments PLATELET COUNT (BEAKER) (test 136 K/CU MM 150-450 L code = 756) POTASSIUM-STAT [id number] 16:15:00 Test Item Value Reference Range Interpretation Comments POTASSIUM (BEAKER) (test code = 4.9 meq/L 3.6-5.5 379) BLOOD GAS, [id number] 16:15:00 Test Item Value Reference Range Interpretation [...] code = 1819) 100.0 % SODIUM NA-STAT [id number] 16:15:00 Test Item Value Reference Range Interpretation Comments SODIUM (BEAKER) (test code = 381) 131 meq/L 135-148 L GLUCOSE-STAT [id number] 16:15:00 Test Item Value Reference Range Interpretation Comments GLUCOSE RANDOM (BEAKER) (test code 198 mg/dL 70-110 H = 652) HGB/HCT (H&H) - STAT [id number] 16:15:00 Test Item Value Reference Range Interpretation Comments HEMOGLOBIN (BEAKER) (test code = 7.5 g/dL 12.0-15.0 L 410) HEMATOCRIT (BEAKER) (test code = 22.0 % 36.0-45.0 L 411) CALCIUM, [id number] 16:14:00 Test Item Value Reference Range Interpretation Comments CALCIUM IONIZED (BEAKER) (test 0.91 mmol/L 1.12-1.27 L code = 698) PH, BLOOD (BEAKER) (test code = 7.39 1810) BLOOD GAS, [id number] 15:39:00 Test Item Value Reference Range Interpretation [...] code = 1819) 70.0 % SODIUM NA-STAT [id number] 15:39:00 Test Item Value Reference Range Interpretation Comments SODIUM (BEAKER) (test code = 381) 131 meq/L 135-148 L GLUCOSE-STAT [id number] 15:39:00 Test Item Value Reference Range Interpretation Comments GLUCOSE RANDOM (BEAKER) (test code 186 mg/dL 70-110 H = 652) HGB/HCT (H&H) - STAT [id number] 15:39:00 Test Item Value Reference Range Interpretation Comments HEMOGLOBIN (BEAKER) (test code = 7.5 g/dL 12.0-15.0 L 410) HEMATOCRIT (BEAKER) (test code = 22.0 % 36.0-45.0 L 411) POTASSIUM-STAT [id number] 15:38:00 Test Item Value Reference Range Interpretation Comments POTASSIUM (BEAKER) (test code = 5.3 meq/L 3.6-5.5 379) BLOOD GAS, [id number] 15:24:00 Test Item Value Reference Range Interpretation [...] code = 1819) 70.0 % SODIUM NA-STAT [id number] 15:24:00 Test Item Value Reference Range Interpretation Comments SODIUM (BEAKER) (test code = 381) 130 meq/L 135-148 L GLUCOSE-STAT [id number] 15:24:00 Test Item Value Reference Range Interpretation Comments GLUCOSE RANDOM (BEAKER) (test code 189 mg/dL 70-110 H = 652) HGB/HCT (H&H) - STAT [id number] 15:24:00 Test Item Value Reference Range Interpretation Comments HEMOGLOBIN (BEAKER) (test code = 6.7 g/dL 12.0-15.0 L 410) HEMATOCRIT (BEAKER) (test code = 20.0 % 36.0-45.0 L 411) POTASSIUM-STAT [id number] 15:23:00 Test Item Value Reference Range Interpretation Comments POTASSIUM (BEAKER) (test code = 5.4 meq/L 3.6-5.5 379) BLOOD GAS, [id number] 15:07:00 Test Item Value Reference Range Interpretation [...] code = 1819) 70.0 % SODIUM NA-STAT [id number] 15:07:00 Test Item Value Reference Range Interpretation Comments SODIUM (BEAKER) (test code = 381) 129 meq/L 135-148 L GLUCOSE-STAT [id number] 15:07:00 Test Item Value Reference Range Interpretation Comments GLUCOSE RANDOM (BEAKER) (test code 172 mg/dL 70-110 H = 652) HGB/HCT (H&H) - STAT [id number] 15:07:00 Test Item Value Reference Range Interpretation Comments HEMOGLOBIN (BEAKER) (test code = 7.1 g/dL 12.0-15.0 L 410) HEMATOCRIT (BEAKER) (test code = 21.0 % 36.0-45.0 L 411) POTASSIUM-STAT [id number] 15:04:00 Test Item Value Reference Range Interpretation Comments POTASSIUM (BEAKER) (test code = 5.0 meq/L 3.6-5.5 379) BLOOD GAS, [id number] 14:21:00 Test Item Value Reference Range Interpretation [...] code = 1819) 70.0 % SODIUM NA-STAT [id number] 14:21:00 Test Item Value Reference Range Interpretation Comments SODIUM (BEAKER) (test code = 381) 133 meq/L 135-148 L GLUCOSE-STAT [id number] 14:21:00 Test Item Value Reference Range Interpretation Comments GLUCOSE RANDOM (BEAKER) (test code 160 mg/dL 70-110 H = 652) HGB/HCT (H&H) - STAT [id number] 14:21:00 Test Item Value Reference Range Interpretation Comments HEMOGLOBIN (BEAKER) (test code = 7.5 g/dL 12.0-15.0 L 410) HEMATOCRIT (BEAKER) (test code = 22.0 % 36.0-45.0 L 411) POTASSIUM-STAT [id number] 14:20:00 Test Item Value Reference Range Interpretation Comments POTASSIUM (BEAKER) (test code = 4.7 meq/L 3.6-5.5 379) BLOOD GAS, [id number] 13:58:00 Test Item Value Reference Range Interpretation [...] code = 1819) 80.0 % SODIUM NA-STAT [id number] 13:58:00 Test Item Value Reference Range Interpretation Comments SODIUM (BEAKER) (test code = 381) 132 meq/L 135-148 L GLUCOSE-STAT [id number] 13:58:00 Test Item Value Reference Range Interpretation Comments GLUCOSE RANDOM (BEAKER) (test code 166 mg/dL 70-110 H = 652) HGB/HCT (H&H) - STAT [id number] 13:58:00 Test Item Value Reference Range Interpretation Comments HEMOGLOBIN (BEAKER) (test code = 7.5 g/dL 12.0-15.0 L 410) HEMATOCRIT (BEAKER) (test code = 22.0 % 36.0-45.0 L 411) POTASSIUM-STAT [id number] 13:57:00 Test Item Value Reference Range Interpretation Comments POTASSIUM (BEAKER) (test code = 4.7 meq/L 3.6-5.5 379) BLOOD GAS, [id number] 13:35:00 Test Item Value Reference Range Interpretation [...] (test code = 1819) 80.0 % GLUCOSE-STAT [id number] 13:35:00 Test Item Value Reference Range Interpretation Comments GLUCOSE RANDOM (BEAKER) (test code 130 mg/dL 70-110 H = 652) HGB/HCT (H&H) - STAT [id number] 13:35:00 Test Item Value Reference Range Interpretation Comments HEMOGLOBIN (BEAKER) (test code = 6.7 g/dL 12.0-15.0 L 410) HEMATOCRIT (BEAKER) (test code = 20.0 % 36.0-45.0 L 411) SODIUM NA-STAT [id number] 13:35:00 Test Item Value Reference Range Interpretation Comments SODIUM (BEAKER) (test code = 381) 133 meq/L 135-148 L POTASSIUM-STAT [id number] 13:34:00 Test Item Value Reference Range Interpretation Comments POTASSIUM (BEAKER) (test code = 4.2 meq/L 3.6-5.5 379) BLOOD GAS, [id number] 13:16:00 Test Item Value Reference Range Interpretation [...] code = 1819) 80.0 % SODIUM NA-STAT [id number] 13:16:00 Test Item Value Reference Range Interpretation Comments SODIUM (BEAKER) (test code = 381) 133 meq/L 135-148 L HGB/HCT (H&H) - STAT [id number] 13:16:00 Test Item Value Reference Range Interpretation Comments HEMOGLOBIN (BEAKER) (test code = 6.3 g/dL 12.0-15.0 L 410) HEMATOCRIT (BEAKER) (test code = 19.0 % 36.0-45.0 L 411) CALCIUM, [id number] 13:15:00 Test Item Value Reference Range Interpretation Comments CALCIUM IONIZED (BEAKER) (test 0.98 mmol/L 1.12-1.27 L code = 698) PH, BLOOD (BEAKER) (test code = 7.34 1810) BLOOD GAS, [id number] 13:15:00 Test Item Value Reference Range Interpretation [...] (test code = 1819) 80.0 % GLUCOSE-STAT [id number] 13:14:00 Test Item Value Reference Range Interpretation Comments GLUCOSE RANDOM (BEAKER) (test code = 92 mg/dL 70-110 652) POTASSIUM-STAT [id number] 13:14:00 Test Item Value Reference Range Interpretation Comments POTASSIUM (BEAKER) (test code = 3.9 meq/L 3.6-5.5 379) BLOOD GAS, [id number] 10:54:00 Test Item Value Reference Range Interpretation [...] 1819) 100.0 % HGB/HCT (H&H) - STAT [id number] 10:54:00 Test Item Value Reference Range Interpretation Comments HEMOGLOBIN (BEAKER) (test code = 9.3 g/dL 12.0-15.0 L 410) HEMATOCRIT (BEAKER) (test code = 27.0 % 36.0-45.0 L 411) SODIUM NA-STAT [id number] 10:54:00 Test Item Value Reference Range Interpretation Comments SODIUM (BEAKER) (test code = 381) 132 meq/L 135-148 L GLUCOSE-STAT [id number] 10:52:00 Test Item Value Reference Range Interpretation Comments GLUCOSE RANDOM (BEAKER) (test code = 94 mg/dL 70-110 652) POTASSIUM-STAT [id number] 10:52:00 Test Item Value Reference Range Interpretation Comments POTASSIUM (BEAKER) (test code = 4.0 meq/L 3.6-5.5 379) HEMOGLOBIN [id number] 09:50:00 Test Item Value Reference Range Interpretation Comments HEMOGLOBIN A1C (BEAKER) (test code = 10.6 % 4.3-6.1 H 368) PLATELET AGGREGATION: FUNCTION [id number] 08:27:00 Test Item Value Reference Range Interpretation Comments WEAK ADP 63 % 60-91 RESULT(BEAKER) (test code = 2135) PLATELET FUNCTION 60-100% indicates SCREEN INTERP (BEAKER) normal platelet (test code = 2173) function [id number] Toshia Post MD ([facility]) (test code = (electronic signature) 2227) PLATELET COUNT AGG 198 K/CU MM 150-450 (BEAKER) (test code = 1936) for patients on clopidogrel in past two weeksPOCT-GLUCOSE [id number] 08:11:00 Test Item Value Reference Range Interpretation Comments POC-GLUCOSE METER 116 mg/dL 70-110 H TESTED AT [facility] 6720 ([facility]) (test code = [place] 1538) [address] [id number] 07:10:00 Test Item Value Reference Range Interpretation Comments PHOSPHORUS (BEAKER) (test code = 4.5 mg/dL 2.3-4.7 604) [id number] 07:10:00 Test Item Value Reference Range Interpretation Comments MAGNESIUM (BEAKER) (test code = 2.1 mg/dL 1.6-2.6 627) BASIC METABOLIC [id number] 07:10:00 Test Item Value Reference Range Interpretation [...] = 700) CBC W/PLT COUNT & AUTO [id number] 06:46:00 Test Item Value Reference Range Interpretation [...] PERCENT (BEAKER) (test code = 2801) CALCIUM, [id number] 06:40:00 Test Item Value Reference Range Interpretation Comments CALCIUM IONIZED (BEAKER) (test 1.06 mmol/L 1.12-1.27 L code = 698) PH, BLOOD (BEAKER) (test code = 7.39 1810) POCT-GLUCOSE [id number] 23:22:00 Test Item Value Reference Range Interpretation Comments POC-GLUCOSE METER 165 mg/dL 70-110 H TESTED AT [facility] 6720 ([facility] (test code = [place]O [place] 1538) [address] URINE PROTEIN ELECTROPHORESIS, [id number] 18:02:00 Test Item Value Reference Range Interpretation Comments PROTEIN, URINE 305 mg/dL 0-14 H (BEAKER) (test code = 1569) ALBUMIN URINE ELP 70.9 % (BEAKER) (test code = 1018) GAMMA GLOBULIN URINE 29.1 % (BEAKER) (test code = 1015) UPEP, [id number] ([facility]) No monoclonal bands (test code = 2604) detected. [id number] Rocio Galindo MD (BEAKER) (test code = (electronic signature) 3066) PROTEIN ELECTROPHORESIS, [id number] 17:57:00 Test Item Value Reference Range Interpretation [...] all globulin fractions. No monoclonal bands detected. [id number] Rocio Galindo MD (BEAKER) (test code = (electronic signature) 2616) PROTEIN TOTAL SERUM, 5.5 gm/dL 6.0-8.3 L SPEP (BEAKER) (test code = 0950) POCT-GLUCOSE [id number] 17:15:00 Test Item Value Reference Range Interpretation Comments POC-GLUCOSE METER 209 mg/dL 70-110 H TESTED AT [facility] 6720 (BEAKER) (test code = JULIANO Osborne [facility] 1538) [address] BLOOD GAS, [id number] 15:54:00 Test Item Value Reference Range Interpretation [...] 36.0 % RAD, CHEST, 1 VIEW, NON [id number] 14:07:00Reason for exam:->SOB, hypoxemiaShould this be performed [...] Cespedes MDReport Verified Date/Time: 05/19/2017 14:07:07 Reading Location:[facility] [id number] Consult Reading Room POCT-GLUCOSE [id number] 11:26:00 Test Item Value Reference Range Interpretation Comments POC-GLUCOSE METER 262 mg/dL 70-110 H TESTED AT [facility] 6720 ([facility]) (test code = [place] [facility] 1538) [address] POCT-GLUCOSE [id number] 07:37:00 Test Item Value Reference Range Interpretation Comments POC-GLUCOSE METER 170 mg/dL 70-110 H TESTED AT [facility] 6720 ([facility]) (test code = [facility] 1538) [address] CALCIUM, [id number] 06:06:00 Test Item Value Reference Range Interpretation Comments CALCIUM IONIZED (BEAKER) (test 1.05 mmol/L 1.12-1.27 L code = 698) PH, BLOOD (BEAKER) (test code = 7.41 1810) [id number] 05:38:00 Test Item Value Reference Range Interpretation Comments PHOSPHORUS (BEAKER) (test code = 3.9 mg/dL 2.3-4.7 604) [id number] 05:38:00 Test Item Value Reference Range Interpretation Comments MAGNESIUM (BEAKER) (test code = 2.2 mg/dL 1.6-2.6 627) BASIC METABOLIC [id number] 05:38:00 Test Item Value Reference Range Interpretation [...] PATIEN TS. CBC W/PLT COUNT & AUTO [id number] 05:09:00 Test Item Value Reference Range Interpretation [...] PERCENT (BEAKER) (test code = 2801) POCT-GLUCOSE [id number] 22:08:00 Test Item Value Reference Range Interpretation Comments POC-GLUCOSE METER 263 mg/dL 70-110 H TESTED AT [facility] 67 ([facility]) (test code = [facility] 1538) [address] POCT-GLUCOSE [id number] 17:20:00 Test Item Value Reference Range Interpretation Comments POC-GLUCOSE METER 233 mg/dL 70-110 H TESTED AT [place] [address] ([facility]) (test code = [facility] 1538) [address] POCT-GLUCOSE [id number] 08:28:00 Test Item Value Reference Range Interpretation Comments POC-GLUCOSE METER 154 mg/dL 70-110 H TESTED AT [place] [address] ([facility]) (test code = [facility] 1538) [address] BASIC METABOLIC [id number] 06:41:00 Test Item Value Reference Range Interpretation [...] S NOT APPLICABLE FOR DIALYSIS PATIEN TS. [id number] 06:35:00 Test Item Value Reference Range Interpretation Comments PHOSPHORUS (BEAKER) (test code = 4.1 mg/dL 2.3-4.7 604) [id number] 06:35:00 Test Item Value Reference Range Interpretation Comments MAGNESIUM (BEAKER) (test code = 2.1 mg/dL 1.6-2.6 627) CALCIUM, [id number] 06:22:00 Test Item Value Reference Range Interpretation Comments CALCIUM IONIZED (BEAKER) (test 1.10 mmol/L 1.12-1.27 L code = 698) PH, BLOOD (BEAKER) (test code = 7.38 1810) CBC W/PLT COUNT & AUTO [id number] 06:04:00 Test Item Value Reference Range Interpretation [...] PERCENT (BEAKER) (test code = 2801) POCT-GLUCOSE [id number] 03:44:00 Test Item Value Reference Range Interpretation Comments POC-GLUCOSE METER 220 mg/dL 70-110 H TESTED AT [place] [address] ([facility]) (test code = [facility] [employer] [facility] 1538) [address] POCT-GLUCOSE [id number] 18:27:00 Test Item Value Reference Range Interpretation Comments POC-GLUCOSE METER 256 mg/dL 70-110 H TESTED AT [place] [address] ([facility]) (test code = [facility] [employer] [place] 1538) [address] POCT-GLUCOSE [id number] 15:45:00 Test Item Value Reference Range Interpretation Comments POC-GLUCOSE METER 278 mg/dL 70-110 H TESTED AT [facility] 6720 ([facility]) (test code = [facility] [employer] [place] 1538) [address] POCT-GLUCOSE [id number] 13:22:00 Test Item Value Reference Range Interpretation Comments POC-GLUCOSE METER 278 mg/dL 70-110 H TESTED AT [facility] 6720 (BEAKER) (test code = [facility] [employer] [place] 1538) [address] PLATELET AGGREGATION: FUNCTION [id number] 13:18:00 Test Item Value Reference Range Interpretation Comments WEAK ADP 66 % 60-91 RESULT(BEAKER) (test code = 2135) PLATELET FUNCTION 60-100% indicates SCREEN INTERP (BEAKER) normal platelet (test code = 2173) function [id number] Rigoberto Duenas MD (BEAKER) (test code = (electronic signature) 1550) PLATELET COUNT AGG 204 K/CU MM 150-450 (BEAKER) (test code = 2656) POCT-GLUCOSE [id number] 08:27:00 Test Item Value Reference Range Interpretation Comments POC-GLUCOSE METER 189 mg/dL 70-110 H TESTED AT [facility] 6720 (BEAKER) (test code = J[place]IANO [place] 1538) [address] CALCIUM, [id number] 06:12:00 Test Item Value Reference Range Interpretation Comments CALCIUM IONIZED (BEAKER) (test 1.07 mmol/L 1.12-1.27 L code = 698) PH, BLOOD (BEAKER) (test code = 7.36 1810) [id number] 05:43:00 Test Item Value Reference Range Interpretation Comments PHOSPHORUS (BEAKER) (test code = 3.6 mg/dL 2.3-4.7 604) [id number] 05:43:00 Test Item Value Reference Range Interpretation Comments MAGNESIUM (BEAKER) (test code = 2.1 mg/dL 1.6-2.6 627) BASIC METABOLIC [id number] 05:43:00 Test Item Value Reference Range Interpretation [...] PATIEN TS. CBC W/PLT COUNT & AUTO [id number] 05:05:00 Test Item Value Reference Range Interpretation [...] EOSINOPHILS ABSOLUTE COUNT 0.27 K/ L 0.04-0.36 ([facility]) (test code = 416) BASOPHILS ABSOLUTE COUNT ([facility]) 0.06 K/ L 0.01-0.08 (test code = 417) IMMATURE GRANULOCYTES-RELATIVE 0 % 0-1 PERCENT ([facility]) (test code = 2801) POCT-GLUCOSE [id number] 21:32:00 Test Item Value Reference Range Interpretation Comments POC-GLUCOSE METER 176 mg/dL 70-110 H TESTED AT [place] [address] ([facility]) (test code = [facility] [employer] [facility] 1538) [address] POCT-GLUCOSE [id number] 20:27:00 Test Item Value Reference Range Interpretation Comments POC-GLUCOSE METER 161 mg/dL 70-110 H TESTED AT [place] [address] ([facility]) (test code = [facility] [employer] [facility] 1538) [address] POCT-GLUCOSE [id number] 18:23:00 Test Item Value Reference Range Interpretation Comments POC-GLUCOSE METER 185 mg/dL 70-110 H TESTED AT [place] [address] ([facility]) (test code = [facility] 1538) [address] POCT-GLUCOSE [id number] 13:26:00 Test Item Value Reference Range Interpretation Comments POC-GLUCOSE METER 282 mg/dL 70-110 H TESTED AT [place] [address] ([facility]) (test code = [facility] [employer] [facility] 1538) [address] URINE [id number] 10:12:00 Test Item Value Reference Range Interpretation Comments CULTURE ([facility]) (test >100,000 col/mL skin code = 1095) todd POCT-GLUCOSE [id number] 09:01:00 Test Item Value Reference Range Interpretation Comments POC-GLUCOSE METER 268 mg/dL 70-110 H TESTED AT [place] [address] ([facility]) (test code = [facility] 1538) [address] CALCIUM, [id number] 05:39:00 Test Item Value Reference Range Interpretation Comments CALCIUM IONIZED ([facility]) (test 0.84 mmol/L 1.12-1.27 L code = 698) PH, BLOOD ([facility]) (test code = 7.35 3320) BASIC METABOLIC [id number] 05:07:00 Test Item Value Reference Range Interpretation [...] S NOT APPLICABLE FOR DIALYSIS PATIEN TS. [id number] 05:06:00 Test Item Value Reference Range Interpretation Comments PHOSPHORUS (BEAKER) (test code = 3.2 mg/dL 2.3-4.7 604) [id number] 05:06:00 Test Item Value Reference Range Interpretation Comments MAGNESIUM (BEAKER) (test code = 2.3 mg/dL 1.6-2.6 627) CBC W/PLT COUNT & AUTO [id number] 04:42:00 Test Item Value Reference Range Interpretation [...] = 2801) RHEUMATOID FACTOR AB, REFLEX TO [id number] 01:52:00 Test Item Value Reference Range Interpretation Comments RHEUMATOID FACTOR (BEAKER) (test Negative code = 573) POCT-GLUCOSE [id number] 21:57:00 Test Item Value Reference Range Interpretation Comments POC-GLUCOSE METER 105 mg/dL 70-110 TESTED AT [facility] 6720 (BEAKER) (test code = [place] 1538) [address] POCT-GLUCOSE [id number] 18:11:00 Test Item Value Reference Range Interpretation Comments POC-GLUCOSE METER 312 mg/dL 70-110 H Notified R Sonya PIERRE/TESTED (ROBERT) (test code = AT [facility] [address] 7888) [facility] 7703 0 PET, CARDIAC PERFUSION MULTIPLE STUDIES, REST AND [id number] 16:28:00 Reason for exam:->pvcs, known cadFINAL REPORT PROCEDURE: Rest/Stress MYOCARDIAL PERFUSION PET with regadenoson\\XA9\\ CPT CODE: 29756 INDICATION: Defined extent and severity of known [...] is 23%. LVEF at stress is 36%. 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 This is unchanged. Left lung is grossly clear. Cardiac silhouette is enlarged. IMPRESSION: 1. No acute cardiopulmonary disease. Signed: Sixto Monk MDReport Verified Date/Time: 05/15/2017 15:56:39 Reading Location: [facility] iology Reading Room POCT-GLUCOSE [id number] 12:54:00 Test Item Value Reference Range Interpretation Comments POC-GLUCOSE METER 308 mg/dL 70-110 H Notified Dylon Austin MD/NATHAN (ROBERT) (test code = AT [facility] [address] 1538) [facility] 7703 0 U/S, RENAL WITH [id number] 11:04:00Reason for exam:->tracy, htnShould this be performed [...] MDReport Verified Date/Time: 05/15/2017 11:04:01 Reading Location: [address] Ultrasound Reading Room ANA TITER AND [id number] 10:57:00 Test Item Value Reference Range Interpretation Comments ROGER TITER (BEAKER) (test code = :160 1541) ROGER PATTERN (BEAKER) (test code = Speckled 1781) ANTI-NUCLEAR ANTIBODY (ROGER)2017-05-15 10:56:00 Test Item Value Reference Range Interpretation Comments ANTI-NUCLEAR ANTIBODY (ROGER) (BEAKER) Positive Negative A (test code = 418) CALCIUM, [id number] 06:00:00 Test Item Value Reference Range Interpretation Comments CALCIUM IONIZED (BEAKER) (test 1.07 mmol/L 1.12-1.27 L code = 698) PH, BLOOD (BEAKER) (test code = 7.28 1810) HEPATITIS PANEL, [id number] 05:01:00 Test Item Value Reference Range Interpretation Comments HEPATITIS A IGM ANTIBODY (BEAKER) Nonreactive Nonreactive (test code = 498) HEPATITIS B CORE IGM ANTIBODY Nonreactive Nonreactive (BEAKER) (test code = 645) HEPATITIS C ANTIBODY (BEAKER) Nonreactive Nonreactive (test code = 367) HEPATITIS B SURFACE ANTIGEN (2) Nonreactive Nonreactive (BEAKER) (test code = 2585) BASIC METABOLIC [id number] 04:48:00 Test Item Value Reference Range Interpretation [...] NOT APPLICABLE FOR DIALYSIS PATIEN TS. URIC [id number] 04:41:00 Test Item Value Reference Range Interpretation Comments URIC ACID (BEAKER) (test code = 10.3 mg/dL 2.6-7.2 H 773) [id number] 04:41:00 Test Item Value Reference Range Interpretation Comments MAGNESIUM (BEAKER) (test code = 2.0 mg/dL 1.6-2.6 627) [id number] 04:41:00 Test Item Value Reference Range Interpretation Comments PHOSPHORUS (BEAKER) (test code = 4.2 mg/dL 2.3-4.7 604) COMPLEMENT COMPONENT [id number] 04:38:00 Test Item Value Reference Range Interpretation Comments C4 COMPLEMENT (BEAKER) (test code = 28 mg/dL 15-57 394) COMPLEMENT COMPONENT [id number] 04:38:00 Test Item Value Reference Range Interpretation Comments C3 COMPLEMENT (BEAKER) (test code = 103 mg/dL 82-193 393) CBC W/PLT COUNT & AUTO [id number] 04:22:00 Test Item Value Reference Range Interpretation [...] PERCENT (BEAKER) (test code = 2801) POCT-GLUCOSE [id number] 21:46:00 Test Item Value Reference Range Interpretation Comments POC-GLUCOSE METER 173 mg/dL 70-110 H TESTED AT [place] [address] ([facility]) (test code = [facility] Dylon [facility] 1538) [address] POCT-GLUCOSE [id number] 21:46:00 Test Item Value Reference Range Interpretation Comments POC-GLUCOSE METER 154 mg/dL 70-110 H TESTED AT [place] [address] ([facility]) (test code = [facility] [place] [facility] 1538) [address] POCT-GLUCOSE [id number] 18:17:00 Test Item Value Reference Range Interpretation Comments POC-GLUCOSE METER 175 mg/dL 70-110 H TESTED AT [place] [address] ([facility]) (test code = [facility] [place] [facility] 1538) [address] RAD, CHEST, 1 VIEW, NON [id number] 14:56:00Reason for exam:->SOBShould this be performed at the bedside?->YesFINAL REPORT INDICATION: SOB COMPARISON: May 13, 2017 TECHNIQUE: Chest radiograph, single view, portable technique. FINDINGS / IMPRESSION: Enlarged heart shadow, small rightpleural effusion, and pulmonary venous congestion, again demonstrated. No pneumothorax or consolidation. Osseous structures unremarkable. Signed: Thania Dwyer MDReport Verified Date/Time: 05/14/2017 14:56:58 Reading Location: [facility] Reading Room POCT-GLUCOSE [id number] 12:18:00 Test Item Value Reference Range Interpretation Comments POC-GLUCOSE METER 313 mg/dL 70-110 H TESTED AT [facility] 6720 (BEAKER) (test code = JULIANO Osborne [facility] 1538) [address] HIV-1 ANTIGEN WITH HIV-1/2 [id number] 12:07:00 Test Item Value Reference Range Interpretation Comments HIV-1 ANTIGEN WITH HIV 1\\T\\2 Nonreactive Nonreactive ANTIBODY (2) (BEAKER) (test code = 2586) CALCIUM, [id number] 06:37:00 Test Item Value Reference Range Interpretation Comments CALCIUM IONIZED (BEAKER) (test 1.08 mmol/L 1.12-1.27 L code = 698) PH, BLOOD (BEAKER) (test code = 7.25 1810) BASIC METABOLIC [id number] 06:26:00 Test Item Value Reference Range Interpretation [...] pg/mL 0-100 H (test code = 700) [id number] 06:25:00 Test Item Value Reference Range Interpretation Comments PHOSPHORUS (BEAKER) (test code = 5.7 mg/dL 2.3-4.7 H 604) [id number] 06:25:00 Test Item Value Reference Range Interpretation Comments MAGNESIUM (BEAKER) (test code = 1.5 mg/dL 1.6-2.6 L 627) CBC W/PLT COUNT & AUTO [id number] 06:07:00 Test Item Value Reference Range Interpretation [...] PERCENT (BEAKER) (test code = 2801) POCT-GLUCOSE [id number] 22:38:00 Test Item Value Reference Range Interpretation Comments POC-GLUCOSE METER 262 mg/dL 70-110 H TESTED AT [facility] 6720 (BEAKER) (test code = JULIANO Osborne [place] 1538) [address] PROTEIN, RANDOM [id number] 22:18:00 Test Item Value Reference Range Interpretation Comments PROTEIN, URINE (BEAKER) (test code 641 mg/dL 0-14 H = 1569) CREATININE, RANDOM [id number] 22:07:00 Test Item Value Reference Range Interpretation Comments CREATININE URINE (BEAKER) (test 124.9 mg/dL code = 375) Reference Range: No NormalsURINALYSIS W/ [id number] 22:03:00 Test Item Value Reference Range Interpretation [...] 1585) SOURCE(BEAKER) (test code = Urine, Voided 6680) [id number] 19:49:00 Test Item Value Reference Range Interpretation Comments SODIUM (BEAKER) (test 136 meq/L 136-145 code = 381) POTASSIUM (BEAKER) 5.1 meq/L 3.5-5.1 Specimen slightly (test code = 379) hemolyzed CHLORIDE (BEAKER) 104 meq/L 98-107 (test code = 382) CO2 (BEAKER) (test 25 meq/L 22-29 code = 355) Call if K > 5POCT-GLUCOSE [id number] 11:37:00 Test Item Value Reference Range Interpretation Comments POC-GLUCOSE METER 293 mg/dL 70-110 H TESTED AT [facility] 6720 (BEAKER) (test code = JULIANO Osborne [place] 1538) [address] RAD, CHEST, 1 VIEW, NON [id number] 10:22:00Reason for exam:->SOBShould this be performed at the bedside?->YesFINAL REPORT Chest one view Discussion: There is cardiomegaly and interstitial congestion. A small right-sided effusion is noted. No pneumothorax. IMPRESSIONS: Suspected CHF. Signed: Jeannette Nava Verified Date/Time: 05/13/2017 10:22:34 Reading Location: [facility] Radiology Reading Room POCT-GLUCOSE METER 2017-05-13 08:34:00 Test Item Value Reference Range Interpretation Comments POC-GLUCOSE METER 178 mg/dL 70-110 H TESTED AT [facility] 6720 (BEAKER) (test code = JULIANO Osborne [place] 1538) [address] POCT-GLUCOSE [id number] 06:53:00 Test Item Value Reference Range Interpretation Comments POC-GLUCOSE METER 167 mg/dL 70-110 H TESTED AT [facility] 6720 (BEAKER) (test code = JULIANO Osborne [place] 1538) [address] [id number] 04:48:00 Test Item Value Reference Range Interpretation Comments BLOOD UREA NITROGEN (BEAKER) (test 36 mg/dL 7-21 H code = 354) [id number] 04:48:00 Test Item Value Reference Range Interpretation Comments SODIUM (BEAKER) (test code = 381) 139 meq/L 136-145 POTASSIUM (BEAKER) (test code = 5.2 meq/L 3.5-5.1 H 379) CHLORIDE (BEAKER) (test code = 382) 109 meq/L 98-107 H CO2 (BEAKER) (test code = 355) 23 meq/L 22-29 [id number] 04:48:00 Test Item Value Reference Range Interpretation [...] (BEAKER) (test code = 412) PLATELET COUNT ([facility]) (test 194 K/CU MM 150-450 code = 756) MEAN PLATELET VOLUME (BEAKER) 10.9 fL 9.4-12.3 (test code = 754) NUCLEATED RED BLOOD CELLS 0 /100 WBC 0-0 (AKER) (test code = 413) [id number] 23:29:00 Test Item Value Reference Range Interpretation Comments ACTIVATED CLOTTING TIME 136 sec TEST ED AT [place] [address] ([facility]) (test code = JULIANO Osborne [place] [address]) [address] [id number] 20:13:00 Test Item Value Reference Range Interpretation Comments ACTIVATED CLOTTING TIME 175 sec TEST ED AT [place] [address] ([facility]) (test code = JULIANO Osborne [place] [address]) [address] [id number] 18:36:00 Test Item Value Reference Range Interpretation Comments ACTIVATED CLOTTING TIME 202 sec TEST ED AT [place] [address] ([facility]) (test code = JULIANO Osborne [place] [address]) [address] [id number] 18:03:00 Test Item Value Reference Range Interpretation Comments ACTIVATED CLOTTING TIME 208 sec TEST ED AT [place] [address] ([facility]) (test code = JULIANO Osborne [place] [address]) [address] BASIC METABOLIC [id number] 11:57:00 Test Item Value Reference Range Interpretation [...] NOT APPLICABLE FOR DIALYSIS PATIEN TS. PROTHROMBIN [id number] 11:15:00 Test Item Value Reference Range Interpretation [...] if on CoumadinCBC W/PLT COUNT & AUTO [id number] 11:01:00 Test Item Value Reference Range Interpretation [...] PERCENT (BEAKER) (test code = 2801) POCT-GLUCOSE [id number] 12:35:00 Test Item Value Reference Range Interpretation Comments POC-GLUCOSE METER 249 mg/dL 70-110 H TESTED AT [place] [address] ([facility]) (test code = JULIANO Osborne [facility] 1538) [address] POCT-GLUCOSE [id number] 09:10:00 Test Item Value Reference Range Interpretation Comments POC-GLUCOSE METER 155 mg/dL 70-110 H TESTED AT [place] [address] ([facility]) (test code = [facility] 1538) [address] BASIC METABOLIC [id number] 05:39:00 Test Item Value Reference Range Interpretation [...] S NOT APPLICABLE FOR DIALYSIS PATIEN TS. [id number] 05:27:00 Test Item Value Reference Range Interpretation Comments PHOSPHORUS (BEAKER) (test code = 5.0 mg/dL 2.3-4.7 H 604) [id number] 05:27:00 Test Item Value Reference Range Interpretation Comments MAGNESIUM (BEAKER) (test code = 1.6 mg/dL 1.6-2.6 627) POCT-GLUCOSE [id number] 05:25:00 Test Item Value Reference Range Interpretation Comments POC-GLUCOSE METER 144 mg/dL 70-110 H TESTED AT [place] [address] ([facility]) (test code = [place]O [place] 1538) [address] PROTHROMBIN [id number] 04:58:00 Test Item Value Reference Range Interpretation Comments PROTIME (BEAKER) (test code = 14.2 seconds 11.7-14.7 759) INR (BEAKER) (test code = 370) 1.1 <=5.9 RECOMMENDED COUMADIN/WARFARIN INR THERAPY RANGESSTANDARD DOSE: 2.0 - 3.0 Includes: PROPHYLAXIS forvenous thrombosis, systemic embolization; TREATMENT for venous thrombosis and/or pulmonary embolus.HIGH RISK: Target INR is 2.5-3.5 for patients with mechanical heart valves.POCT-GLUCOSE [id number] 23:55:00 Test Item Value Reference Range Interpretation Comments POC-GLUCOSE METER 86 mg/dL 70-110 TESTED AT [facility] 6720 ([facility]) (test code = [place] [address] 1538) B-TYPE NATRIURETIC FACTOR (BNP)2017-04-22 18:13:00 Test Item Value Reference Range Interpretation Comments B-TYPE NATRIURETIC PEPTIDE 1203 pg/mL 0-100 H (BEAKER) (test code = 700) POCT-GLUCOSE [id number] 17:36:00 Test Item Value Reference Range Interpretation Comments POC-GLUCOSE METER 259 mg/dL 70-110 H TESTED AT [facility] 6720 ([facility]) (test code = JULIANO Osborne [place] 1538) [address] HEMOGLOBIN [id number] 14:24:00 Test Item Value Reference Range Interpretation Comments HEMOGLOBIN A1C (BEAKER) (test code = 10.5 % 4.3-6.1 H 368) POCT-GLUCOSE [id number] 12:34:00 Test Item Value Reference Range Interpretation Comments POC-GLUCOSE METER 207 mg/dL 70-110 H TESTED AT [facility] 6720 ([facility]) (test code = [facility] 1538) [address] [id number] 07:53:00 Test Item Value Reference Range Interpretation Comments PHOSPHORUS (BEAKER) (test code = 3.9 mg/dL 2.3-4.7 604) [id number] 07:53:00 Test Item Value Reference Range Interpretation Comments MAGNESIUM (BEAKER) (test code = 1.6 mg/dL 1.6-2.6 627) BASIC METABOLIC [id number] 07:53:00 Test Item Value Reference Range Interpretation [...] NOT APPLICABLE FOR DIALYSIS PATIEN TS. TROPONIN [id number] 07:29:00 Test Item Value Reference Range Interpretation [...] acidosis, acute neurological disease, and persistent tachyarrhythmia.PROTHROMBIN [id number] 07:01:00 Test Item Value Reference Range Interpretation Comments PROTIME (ROBERT) (test code = 13.8 seconds 11.7-14.7 759) INR ([facility]) (test code = 370) 1.1 <=5.9 RECOMMENDED COUMADIN/WARFARIN INR THERAPY RANGESSTANDARD DOSE: 2.0 - 3.0 Includes: PROPHYLAXIS forvenous thrombosis, systemic embolization; TREATMENT for venous thrombosis and/or pulmonary embolus.HIGH RISK: Target INR is 2.5-3.5 for patients with mechanical heart valves.POCT-GLUCOSE [id number] 06:28:00 Test Item Value Reference Range Interpretation Comments POC-GLUCOSE METER 198 mg/dL 70-110 H TESTED AT [facility] 6720 ([facility]) (test code = JULIANO Osborne [facility] 1538) [address] CREATINE KINASE (CK), TOTAL AND [id number] 00:49:00 Test Item Value Reference Range Interpretation Comments CREATINE KINASE TOTAL (ROBERT) 69 U/L 29-200 (test code = 380) CREATINE KINASE-MB (ROBERT) (test 4.3 ng/mL 0.0-6.6 code = 750) CREATINE KINASE-MB INDEX (ROBERT) 6.2 % (test code = 395) CK-MB Reference Range:<6.7 Normal6.7-10.0 Borderline>10.0 AbnormalTROPONIN [id number] 00:49:00 Test Item Value Reference Range Interpretation [...] acidosis, acute neurological disease, and persistent tachyarrhythmia.POCT-GLUCOSE [id number] 20:44:00 Test Item Value Reference Range Interpretation Comments POC-GLUCOSE METER 269 mg/dL 70-110 H TESTED AT [facility] 67 ([facility]) (test code = JULIANO REYEZ 1538) [address]
[2020-10-10 18:48] LABS: Absolute Lymphocytes (CBC) 1.7 K/uL (0.7-4.9); Basophils % 1.2 % (0-1.3); Hematocrit 32.8 % (36.0-45.0); Lymphocytes % 23.9 % (15.3-44.8); MPV 6.7 fL (7.6-11.3)
[2020-10-10 18:48] LABS: Protime INR 1.15
[2020-10-10] MEDS ORDERED: HYDROCODONE/APAP 10/325 TAB ONE (19:16)
[2020-10-10 19:29] LABS: Albumin 2.3 g/dL (3.4-5.0); Bilirubin Direct 0.2 mg/dL (0-0.2); Bilirubin Total 0.4 mg/dL (0.2-1.0); Potassium 4.5 mmol/L (3.5-5.1); Protein, Total 6.9 g/dL (6.4-8.2); Troponin (Emerg Dept Use Only) 0.15 ng/mL (0.0-0.045)
--- NOTE | 2020-10-10 21:28 | EDPHYS ---
Physician Documentation [facility] Name: Christy Priest Age: 65 yrs Sex: Female : 1955 Arrival Date: 10/10/2020 Time: 17:49 Bed 23 Private MD: ED Physician Jurgen Nettles HPI: 10/10 18:16 This 65 yrs old Female presents to ER via EMS with complaints of Shortness Of pm1 Breath. 18:16 The patient has shortness of breath at rest. Onset: The symptoms/episode began/occurred pm1 2 day(s) ago. Duration: The symptoms are intermittent. The patient's shortness of breath is aggravated by nothing, is alleviated by nothing. Associated signs and symptoms: Pertinent positives: chest pain, yesterday. Severity of symptoms: in the emergency department the symptoms have improved with oxygen therapy. The patient has been recently been admitted at [facility], was discharged last week, for similar complaints. Historical: - Allergies: 17:52 Morphine; vg1 17:52 Augmentin; vg1 17:52 basil; vg1 17:52 Clindamycin; vg1 17:52 Nitroglycerin; vg1 17:52 Tramadol HCl; vg1 17:52 Trazodone; vg1 17:52 Vancomycin; vg1 17:52 Vicodin; vg1 - Home Meds: 17:52 Allopurinol Oral [Active]; Aspirin Oral [Active]; atorvastatin Oral [Active]; vg1 gabapentin Oral [Active]; Hydralazine Oral [Active]; Lasix Oral [Active]; lisinopril Oral [Active]; Coreg Oral [Active]; Levemir U-100 Insulin 100 unit/mL subcutaneous soln [Active]; Nifedipine Oral [Active]; sertraline Oral [Active]; Plavix Oral [Active]; - PMHx: 17:57 ADD/ADHD; CHF; COPD; Diabetes - IDDM; Dialysis; ESRD; High Cholesterol; Hypertension; vg1 triple bypass; uterine cancer; - Immunization history:: Adult Immunizations up to date. - Social history:: Smoking status: Patient reports the use of cigarette tobacco products, denies chronic smoking, but will smoke occasionally. ROS: 18:16 Constitutional: Negative for fever, chills, and weight loss. pm1 18:16 Abdomen/GI: Negative for abdominal pain, nausea, vomiting, diarrhea, and constipation, Back: Negative for injury and pain, MS/Extremity: Negative for injury and deformity, Skin: Negative for injury, rash, and discoloration, Neuro: Negative for headache, weakness, numbness, tingling, and seizure. 18:16 Cardiovascular: Positive for chest pain, edema. 18:16 Respiratory: Positive for shortness of breath. 18:16 All other systems are negative. Exam: 18:16 Constitutional: This is a well developed, well nourished patient who is awake, alert, pm1 and in no acute distress. Head/Face: Normocephalic, atraumatic. Chest/axilla: Normal chest wall appearance and motion. Nontender with no deformity. No lesions are appreciated. 18:16 Skin: Warm, dry with normal turgor. Normal color with no rashes, no lesions, and no evidence of cellulitis. MS/ Extremity: Pulses equal, no cyanosis. Neurovascular intact. Full, normal range of motion. 18:16 Cardiovascular: Rate: normal, Rhythm: regular, Pulses: no pulse deficits are appreciated. 18:16 Respiratory: Exam negative for acute changes, respiratory distress, shortness of breath, Breath sounds: decreased breath sounds, are located in both bases. 18:16 Abdomen/GI: Inspection: abdomen appears normal, Palpation: abdomen is soft and non-tender, in all quadrants. 18:16 Neuro: Exam negative for acute changes, Orientation: is normal, Mentation: is normal, Motor: is normal, moves all fours. Vital Signs: 17:50 BP 151 / 77; Pulse 79; Resp 20; Temp 97.9; Pulse Ox 100% ; Weight 75.75 kg; Height 5 vg1 ft. 7 in. (170.18 cm); Pain 7/10; 17:50 Body Mass Index 26.16 (75.75 kg, 170.18 cm) vg1 MDM: 18:04 Patient medically screened. pm1 21:18 Data reviewed: vital signs. Data interpreted: Pulse oximetry: on 2L(s) per nasal pm1 canula, is 100 %. Interpretation: normal. Counseling: I had a detailed discussion with the patient and/or guardian regarding: the historical points, exam findings, and any diagnostic results supporting the discharge/admit diagnosis, lab results, radiology results, the need for further work-up and treatment in the hospital. 10/10 18:14 Order name: Basic Metabolic Panel pm1 10/10 18:14 Order name: CBC with Diff pm1 10/10 18:14 Order name: LFT's pm1 10/10 18:14 Order name: Magnesium pm1 10/10 18:14 Order name: NT PRO-BNP; Complete Time: 19:39 pm1 10/10 18:14 Order name: PT-INR; Complete Time: 18:53 pm1 10/10 18:14 Order name: Troponin (emerg Dept Use Only); Complete Time: 19:39 pm1 10/10 18:14 Order name: Procalcitonin; Complete Time: 19:39 pm1 10/10 18:14 Order name: Lactate; Complete Time: 19:39 pm1 10/10 18:15 Order name: Basic Metabolic Panel; Complete Time: 19:39 EDMS 10/10 18:15 Order name: CBC with Automated Diff; Complete Time: 18:53 EDMS 10/10 18:15 Order name: Liver (Hepatic) Function; Complete Time: 19:39 EDMS 10/10 18:15 Order name: Magnesium; Complete Time: 19:39 EDMS 10/11 01:24 Order name: COVID-19 : Document "Date of Symptom Onset" if Symptomatic. mw2 10/11 01:49 Order name: CORONAVIRUS EDMS 10/11 02:20 Order name: Troponin I EDMS 10/11 04:21 Order name: SARS-COV-2 RT PCR EDMS 10/11 06:49 Order name: CBC with Automated Diff EDMS 10/11 06:49 Order name: Comprehensive Metabolic Panel EDMS 10/11 06:49 Order name: Phosphorus EDMS 10/11 06:49 Order name: Lipid Profile EDMS 10/11 06:49 Order name: T4 Free EDMS 10/11 06:49 Order name: Magnesium EDMS 10/11 06:49 Order name: Thyroid Stimulating Hormone EDMS 10/11 06:49 Order name: Troponin I EDMS 10/11 08:16 Order name: Glucose, Ancillary Testing EDMS 10/11 09:54 Order name: PTT, Activated Partial Thromb EDMS 10/11 11:47 Order name: Glucose, Ancillary Testing EDMS 10/11 16:09 Order name: Glucose, Ancillary Testing EDMS 10/11 16:12 Order name: PTT, Activated Partial Thromb EDNV 10/10 18:14 Order name: XRAY Chest (1 view); Complete Time: 21:40 pm1 10/10 18:14 Order name: EKG; Complete Time: 18:15 pm1 10/10 18:14 Order name: Cardiac monitoring; Complete Time: 18:39 pm1 10/10 18:14 Order name: EKG - Nurse/Tech; Complete Time: 18:39 pm1 10/10 18:14 Order name: IV Saline Lock; Complete Time: 18:38 pm1 10/10 18:14 Order name: Labs collected and sent; Complete Time: 18:38 pm1 10/10 18:14 Order name: O2 Per Protocol; Complete Time: 18:14 pm1 10/10 18:14 Order name: O2 Sat Monitoring; Complete Time: 18:14 pm1 10/10 23:02 Order name: CONS Physician Consult EDMS Administered Medications: 19:00 Drug: [place] (HYDROcodone-acetaminophen) 10 mg-325 mg 1 tabs Route: PO; vg1 Disposition Summary: 10/10/20 21:27 Hospitalization Ordered Hospitalization Status: Observation pm1 Provider: Jaun Parker pm1 Condition: Stable pm1 Problem: new pm1 Symptoms: have improved pm1 Bed/Room Type: Standard pm1 Location: Telemetry/MedSurg (observation)(10/11/20 16:34) dw Room Assignment: [facility](10/11/20 16:34) dw Diagnosis - Shortness of breath pm1 - Chest pain, unspecified pm1 Discharge Instructions: - Discharge Summary Sheet bb Forms: - SBAR form bb - Medication Reconciliation Form pm1 Addendum: 10/14/2020 07:45 Co-signature as Attending Physician, Jurgen Nettles MD. r n Signatures: Dispatcher [employer] [facility] Veronika Ireland RN RN dw Nieto, Roman, MD MD rn Garcia, Cindy, RN RN cg Marinas, Patrick, NP INSTRUMENT TECHNICIAN pm1 Arlette Glass RN RN vg1 Corrections: (The following items were deleted from the chart) 10/10 23:13 21:27 Telemetry/MedSurg (observation) pm1 23:13 21:27 pm1 10/11 16:34 07/13 23:13 [facility] ER HOLD cg dw 10/11 16:34 10/10 23:13 ERHOLD- cg dw
--- NOTE | 2020-10-10 21:28 | ER ---
Nurse's Notes [facility] Name: Christy Priest Age: 65 yrs Sex: Female : 1955 Arrival Date: 10/10/2020 Time: 17:49 Bed 23 Private MD: Diagnosis: Shortness of breath;Chest pain, unspecified Presentation: 10/10 17:50 Chief complaint: EMS states: Pt was c/o shortness of breath after dialysis. When EMS vg1 came on scene pt O2 was 92%, stated placed pt on 2LNC and O2 increased to 98%. Pt is currently taking antibiotics and would like Dr Eng notified that is in ED. Coronavirus screen: Client denies travel out of the [place] in the last 14 days. Client presents with at least one sign or symptom that may indicate coronavirus-19. Standard/surgical mask placed on the client. Ebola Screen: Patient negative for fever greater than or equal to 101.5 degrees Fahrenheit, and additional compatible Ebola Virus Disease symptoms. Initial Sepsis Screen: Does the patient meet any 2 criteria? No. Patient's initial sepsis screen is negative. Does the patient have a suspected source of infection? No. Patient's initial sepsis screen is negative. Risk Assessment: Do you want to hurt yourself or someone else? Patient reports no desire to harm self or others. Onset of symptoms was October 10, 2020. 17:50 Method Of Arrival: EMS: [facility] in [place] vg1 17:50 Acuity: DENNY 3 vg1 Triage Assessment: 17:55 General: Appears in no apparent distress. uncomfortable, Behavior is calm, cooperative. vg1 Pain: Complains of pain in Lower back and GÓMEZ legs Pain currently is 7 out of 10 on a pain scale. Pain began 1 hour ago. Noted to be grimacing. EENT: No signs and/or symptoms were reported regarding the EENT system. Neuro: Level of Consciousness is awake, alert, obeys commands, Oriented to person, place, time, situation. Cardiovascular: Patient's skin is warm and dry. Respiratory: Reports shortness of breath cough that is. GI: No signs and/or symptoms were reported involving the gastrointestinal system. : No signs and/or symptoms were reported regarding the genitourinary system. Derm: Skin is pink, warm \\T\\ dry. Musculoskeletal: Swelling present in right leg and left leg. 17:58 Respiratory: Onset: The symptoms/episode began/occurred today, the patient has moderate vg1 shortness of breath. Historical: - Allergies: 17:52 Morphine; vg1 17:52 Augmentin; vg1 17:52 basil; vg1 17:52 Clindamycin; vg1 17:52 Nitroglycerin; vg1 17:52 Tramadol HCl; vg1 17:52 Trazodone; vg1 17:52 Vancomycin; vg1 17:52 Vicodin; vg1 - Home Meds: 17:52 Allopurinol Oral [Active]; Aspirin Oral [Active]; atorvastatin Oral [Active]; vg1 gabapentin Oral [Active]; Hydralazine Oral [Active]; Lasix Oral [Active]; lisinopril Oral [Active]; Coreg Oral [Active]; Levemir U-100 Insulin 100 unit/mL subcutaneous soln [Active]; Nifedipine Oral [Active]; sertraline Oral [Active]; Plavix Oral [Active]; - PMHx: 17:57 ADD/ADHD; CHF; COPD; Diabetes - IDDM; Dialysis; ESRD; High Cholesterol; Hypertension; vg1 triple bypass; uterine cancer; - Immunization history:: Adult Immunizations up to date. - Social history:: Smoking status: Patient reports the use of cigarette tobacco products, denies chronic smoking, but will smoke occasionally. Screenin:57 Abuse screen: Denies threats or abuse. Nutritional screening: No deficits noted. vg1 Tuberculosis screening: No symptoms or risk factors identified. Fall Risk No fall in past 12 months (0 pts). No secondary diagnosis (0 pts). IV access (20 points). Ambulatory Aid- None/Bed Rest/Nurse Assist (0 pts). Gait- Normal/Bed Rest/Wheelchair (0 pts) Mental Status- Oriented to own ability (0 pts). Total Merlos Fall Scale indicates No Risk (0-24 pts). Assessment: 17:58 Reassessment: See Triage. Respiratory: Airway is patent Respiratory effort is even, vg1 unlabored. 18:50 Reassessment: Received VO from Anup GARCIA to administer [place] 10 mg/ 325 mg PO x1. vg1 20:31 Reassessment: report given to Kristin sellers Vital Signs: 17:50 BP 151 / 77; Pulse 79; Resp 20; Temp 97.9; Pulse Ox 100% ; Weight 75.75 kg; Height 5 vg1 ft. 7 in. (170.18 cm); Pain 7/10; 17:50 Body Mass Index 26.16 (75.75 kg, 170.18 cm) vg1 ED Course: 17:49 Patient arrived in ED. vg1 17:52 Triage completed. vg1 17:55 Arlette Glass RN is Primary Nurse. vg1 17:55 Arm band placed on. vg1 17:57 Patient has correct armband on for positive identification. Bed in low position. Call vg1 light in reach. Side rails up X2. 17:59 Quan Hebert NP is PHCP. pm1 17:59 Jurgen Nettles MD is Attending Physician. pm1 18:38 Initial lab(s) drawn, by sd, sent to lab. Inserted saline lock: 22 gauge in right vg1 antecubital area, using aseptic technique. Blood collected. 18:46 XRAY Chest (1 view) In Process Unspecified. EDMS 19:16 Primary Nurse role handed off by Arlette Glass, GUILHERME mw2 20:28 No provider procedures requiring assistance completed. Patient admitted, IV remains in bb place. 21:27 Jaun Parker PA is Hospitalizing Provider. pm1 10/11 02:43 COVID-19 : Document "Date of Symptom Onset" if Symptomatic. Sent. bb3 02:44 CORONAVIRUS Sent. bb3 Administered Medications: 10/10 19:00 Drug: [place] (HYDROcodone-acetaminophen) 10 mg-325 mg 1 tabs Route: PO; vg1 Outcome: 20:28 Admitted to [facility] bb 20:28 Condition: stable 20:28 Instructed on the need for admit. 21:27 Decision to Hospitalize by Provider. pm1 10/11 18:17 Patient left the ED. iw Signatures: Dispatcher [employer] EDMS Jud Mayes RN RN bb Tsering Underwood RN RN iw Quan Hebert NP HOSPITAL PRODUCT SPECIALIST pm1 Margarita Stanton mw2 Linnette Mir bb3 Arlette Glass RN RN vg1 Corrections: (The following items were deleted from the chart) 10/10 17:55 17:50 BP 151 / 77; Pulse 79bpm; Resp 20bpm; Pulse Ox 100%; Temp 97.9F; 75.75 kg; Height vg1 5 ft. 7 in.; BMI: 26.1; Pain 0/10; vg1
--- NOTE | 2020-10-10 21:32 | RAD REPORT ---
EXAM DESCRIPTION: RAD - Chest Single View - 10/10/2020 9:00 pm CLINICAL HISTORY: SOB COMPARISON: Chest Single View dated 10/05/2020; Chest Single View dated 09/21/2020; Chest Single View d ated 07/10/2020; Chest Single View dated 06/27/2020; Abdomen Pelvis Wo Contrast dated 07/08/2020 FINDINGS: Moderate right-sided pleural effusion with underlying airspace disease. Diffuse prominence of the pulmonary interstitium. Cardiomegaly. Left IJ approach dialysis catheter. Sternotomy.No acute osseous abnormality. No pneumothorax. IMPRESSION: Moderate right pleural effusion and likely underlying atelectasis and consolidation as w as present on the CT from 07/08/2020. Vascular congestion noted without dereck pulmonary edema otherwi se identified
[2020-10-11] MEDS ORDERED: ONDANSETRON 4 MG/2 ML VIAL IV PRN (01:10)
[2020-10-11] MEDS ORDERED: HEPARIN 5000 UNIT/ML 1 ML VIAL SQ SCH (01:10)
[2020-10-11] MEDS ORDERED: HYDROMORPHONE HCL 0.5 MG/0.5 ML INJ IV PRN (01:10)
[2020-10-11] MEDS ORDERED: METHYLPREDNISOLONE 40 MG INJ IV SCH (01:10)
[2020-10-11] MEDS ORDERED: ALBUTEROL 2.5 MG/3 ML NEB SOL NEB PRN (01:10)
[2020-10-11] MEDS ORDERED: ACETAMINOPHEN 500 MG TAB PO PRN (01:10)
[2020-10-11] MEDS: HYDRALAZINE HCL 25 MG TABLET PO SCH ×4 (01:36→20:36)
[2020-10-11] MEDS: FUROSEMIDE 40 MG/4 ML VIAL IV SCH ×2 (01:38→09:58)
[2020-10-11] MEDS ORDERED: HEPARIN 5000 UNIT/ML 1 ML VIAL ONE ×2 (01:53→11:39)
[2020-10-11] MEDS ORDERED: HYDRALAZINE HCL 25 MG TABLET ONE ×2 (01:53→10:13)
[2020-10-11] MEDS ORDERED: METHYLPREDNISOLONE 40 MG INJ ONE (01:53)
[2020-10-11] MEDS ORDERED: FUROSEMIDE 40 MG/4 ML VIAL ONE ×2 (01:54→10:13)
[2020-10-11] MEDS: IPRATROPIUM BROM 0.5MG/2.5ML NEB SCH ×4 (02:30→20:25)
[2020-10-11] MEDS ORDERED: IPRATROPIUM BROM 0.5MG/2.5ML ONE ×3 (02:48→16:39)
[2020-10-11] MEDS ORDERED: HYDROMORPHONE HCL 0.5 MG/0.5 ML INJ ONE (03:08)
[2020-10-11] MEDS ORDERED: ASPIRIN 81 MG CHEWABLE TABLET PO ONE (04:20)
[2020-10-11 04:31] VITALS: BMI 26.9
--- NOTE | 2020-10-11 04:57 | P.HP ---
Certification for Inpatient Patient admitted to: Inpatient With expected LOS: <2 Midnights Patient will require the following post-hospital care: None Practitioner: I am a practitioner with admitting privileges, knowledge of patient current condition, hospital course, and medical plan of care. Services: Services provided to patient in accordance with Admission requirements found in Title 42 Section 412.3 of the Code of Federal Regulations <Jaun Parker - Last Filed: 10/11/20 05:00> Patient History Date of Service: 10/10/20 Reason for admission: chest pain History of Present Illness: Ms. Priest is a 65 yo F with CAD s/p CABG, CHF, ESRD on HD TTS, COPD and HTN who presents today with malaise, SOB and chest pain. She says she went to dialysis today and started to feel bad so she asked them to call EMS. Reports wheezing, and episode of vomiting. Denies fever, cough, sputum, pleuritic pain, edema, PND, ESPITIA, diarrhea. Initial troponin 0.15. - Past Medical/Surgical History Diabetic: Yes -: COPD -: Hypertension -: CAD, CABG x4 vessels (August 2017) -: Diabetes mellitus type 2, insulin-dependent -: Chronic combined systolic/diastolic CHF -: Uterine cancer status post hysterectomy -: Chronic renal disease, stage IV -: TB as a child - Negative 2017 -: Hyperlipidemia -: Iron deficiency anemia -: WEST -: ESRD on HD -: Rectal surgery -: Hysterectomy -: Cholecystectomy -: Gastric surgery -: Appendectomy -: CABG x4 vessel -: RLE Femoral popliteal bypass -: Left great toe amputation Psychosocial/ Personal History: The patient is a . Her son lives with her. She has 3 children. - Family History Brother -: Heart disease, Hypertension, Cancer Notes: Father -: Heart disease, Lung disease, Cancer Notes: - Prostate surgery - Hemorrhage Mother -: GI disease Notes: Sister -: Heart disease Notes: - Respiratory failure - Social History Smoking Status: Unknown if ever smoked Alcohol use: No CD- Drugs: No Caffeine use: Yes Place of Residence: Home <Jaun Parker - Last Filed: 10/11/20 05:00> Date of Service: 10/11/20 <Annmarie Carrasco - Last Filed: 10/14/20 03:37> Allergies morphine Allergy (Severe, Verified 10/11/20 04:32) Anaphylaxis vancomycin Allergy (Intermediate, Verified 10/11/20 04:32) Shortness of breath basil Allergy (Verified 10/11/20 04:32) Nausea/Vomiting tramadol Allergy (Verified 10/11/20 04:32) Nausea/Vomiting trazodone Allergy (Verified 10/11/20 04:32) Nausea/Vomiting nitroglycerin Adverse Reaction (Mild, Verified 10/11/20 04:32) Nausea/Vomiting Home Medications: Allopurinol 100 mg PO BID 06/13/20 Aspirin 81 mg PO DAILY 06/13/20 Atorvastatin Calcium [Lipitor] 40 mg PO BEDTIME 06/13/20 Clopidogrel Bisulfate [Plavix*] 75 mg PO DAILY 06/13/20 Fluticasone [Flovent Hfa 110*] 2 puff IN DAILY 06/13/20 Hydralazine [Apresoline*] 25 mg PO TID 06/13/20 carvediloL [Carvedilol] 6.25 mg PO BID 06/13/20 lisinopriL [Prinivil*] 5 mg PO DAILY 06/13/20 Cholestyramine (with Sugar) [Cholestyramine Packet] 1 packet PO DAILY PRN 06/14/20 Furosemide [Lasix*] 2 tab PO BID 06/14/20 Gabapentin [Neurontin*] 200 mg PO TID 06/14/20 Sertraline HCl 25 mg PO DAILY 06/14/20 Dicyclomine HCl 20 mg PO Q6HP PRN #30 07/19/20 Lactobacillus Acidophilus [Acidophilus] 1 each PO TID #90 capsule 07/19/20 Lipase/Protease/Amylase [Heather Turpin 12,000 Units Capsule] 3 cap PO TIDWM #270 cap 07/19/20 Medihoney [Medihoney Woundcare Gel*] 1 appl TOP TuThSa@0900 #1 tube 07/19/20 Sevelamer Carbonate [Renvela*] 800 mg PO TIDWM #90 tablet 07/19/20 Codeine/APAP [Tylenol #3*] 1 tab PO Q6H PRN 3 Days #10 tab 09/23/20 Ipratropium Neb [Atrovent*] 0.5 mg NEB [id number] #60 amp 10/12/20 Isosorbide Dinitrate 30 mg PO DAILY #30 tablet 10/12/20 predniSONE [Deltasone*] 10 mg PO BID #14 tab 10/12/20 Review of Systems 10-point ROS is otherwise unremarkable General: Weakness, Malaise Respiratory: Shortness of Breath, Wheezing Cardiovascular: Chest Pain Gastrointestinal: Nausea, Vomiting <Janu Parker - Last Filed: 10/11/20 05:00> Physical Examination - Vital Signs Temperature: 97.8 F Blood Pressure: 153/85 Pulse: 68 Respirations: 16 Pulse Ox (%): 95 - Physical Exam General: Alert, In no apparent distress HEENT: Atraumatic, PERRLA, Mucous membr. moist/pink, EOMI, Sclerae nonicteric Neck: Supple, 2+ carotid pulse no bruit, No LAD, Without JVD or thyroid abnormality Respiratory: Diminished, Crackles/rales, Expiratory wheezes Cardiovascular: Normal pulses, Regular rate/rhythm, Normal S1 S2, No gallops, No rubs, No murmurs, Edema Gastrointestinal: Normal bowel sounds, No tenderness Musculoskeletal: No tenderness Integumentary: No rashes Neurological: Normal speech, Normal strength at 5/5 x4 extr, Normal tone, Normal affect Lymphatics: No axilla or inguinal lymphadenopathy Urinary: Dialysis catheter - Studies Laboratory Data (last 24 hrs) 10/10/20 18:34: WBC 7.20, Hgb 10.8 L, Hct 32.8 L, Plt Count 221 10/10/20 18:34: Sodium 135 L, Potassium 4.5, BUN 25 H, Creatinine 2.01 H, Glucose 107 H, Magnesium 2.0, Total Bilirubin 0.4, AST 16, ALT 13, Alkaline Phosphatase 123 H 10/10/20 07:55: PT 13.2 H, INR 1.15 <Jaun Parker - Last Filed: 10/11/20 05:00> Assessment and Plan - Plan Assessment chest pain, CAD s/p CABG, CHF ESRD on HD TTS COPD HTN Plan chest pain, CAD s/p CABG, CHF - on telemetry, trend troponins and EKg, daily ASA and statin and carvedilol, DVT ppx, cardiology consulted, lipid and thyroid panel pending, ECHO pending, continue Lasix, daily weights, fluid restriction, low salt diet ESRD on HD TTS - nephrology consulted COPD - continue IV steroids, breathing treatments, O2 HTN - continue home medications, continue to monitor psychiatry and social work consulted, patient expressing she is lonely and depressed, not suicidal but tired of life Discharge Plan: Home Plan to discharge in: 24 Hours - Advance Directives Does patient have a Living Will: No Does patient have a Durable POA for Healthcare: Yes - Code Status/Comfort Care Code Status Assessed: Yes (full code ) Critical Care: No Time Spent Managing Pts Care (In Minutes): 70 <Jaun Parker - Last Filed: 10/11/20 05:00> Date of Service: 10/11/20 Agree with plan of care as mentioned above. Spoke with Cardiology and no cardiac intervention. Spoke with Nephrology and need to get dialysis access catheter functioning and will dialyze on consecutive days. Anticipate discharge over the next 48-72 hr. <Annmarie Carrasco - Last Filed: 10/14/20 03:37>
[2020-10-11] MEDS ORDERED: HEPARIN/D5W 25,000 UNIT/500 ML BAG IV ONE ×2 (04:59→11:38)
[2020-10-11] MEDS ORDERED: HEPARIN/D5W 25,000 UNIT/500 ML BAG IV SCH (05:00)
[2020-10-11] MEDS ORDERED: ASPIRIN 81 MG CHEWABLE TABLET ONE (05:24)
[2020-10-11 05:53] LABS: Absolute Lymphocytes (CBC) 1.4 K/uL (0.7-4.9); Basophils % 0.9 % (0-1.3); Hematocrit 35.1 % (36.0-45.0); Lymphocytes % 17.4 % (15.3-44.8); MPV 7.2 fL (7.6-11.3); RBC Red Blood Cell Count 4.01 M/uL (3.86-4.86)
[2020-10-11 06:20] LABS: Albumin 2.4 g/dL (3.4-5.0); Bilirubin Total 0.4 mg/dL (0.2-1.0); Phosphorus 2.8 mg/dL (2.5-4.9); Protein, Total 7.4 g/dL (6.4-8.2)
[2020-10-11 06:21] LABS: Potassium 5.4 mmol/L (3.5-5.1); Thyroid Stimulating Hormone 4.92 uIU/mL (0.360-3.740)
[2020-10-11] MEDS: INSULIN -REGULAR HUMAN 50 UNIT/0.5 ML ML SQ SCH ×4 (07:30→20:37)
[2020-10-11] MEDS: CLOPIDOGREL 75 MG TABLET PO SCH (09:00)
[2020-10-11] MEDS: SERTRALINE HCL 50 MG TAB PO SCH (09:00)
[2020-10-11] MEDS: allopurinoL 100 MG TAB PO SCH ×2 (09:00→20:36)
[2020-10-11] MEDS ORDERED: lisinopriL 5 MG TAB PO SCH (09:00)
[2020-10-11] MEDS: carvediloL 6.25 MG TAB PO SCH ×2 (09:58→16:59)
[2020-10-11] MEDS ORDERED: CLOPIDOGREL 75 MG TABLET ONE (10:13)
[2020-10-11] MEDS ORDERED: carvediloL 6.25 MG TAB ONE ×2 (10:13→17:13)
[2020-10-11] MEDS ORDERED: HEPARIN 5000 UNIT/ML 1 ML VIAL SQ ONE (11:09)
[2020-10-11] MEDS: FENTANYL CITR 100 MCG/2 ML IV PRN ×2 (11:26→20:37)
[2020-10-11] MEDS ORDERED: FENTANYL CITR 100 MCG/2 ML ONE (11:38)
[2020-10-11] MEDS: LIPASE/PROTEASE/AMYLASE CAP PO SCH ×2 (11:55→17:00)
[2020-10-11] MEDS ORDERED: INSULIN -REGULAR HUMAN 50 UNIT/0.5 ML ML ONE (11:59)
[2020-10-11] MEDS ORDERED: HEPARIN 5000 UNIT/ML 1 ML VIAL IV SCH (12:00)
--- NOTE | 2020-10-11 12:39 | EKG ---
Test Date: 2020-10-11 Test Time: 04:52:17 Direct Marketing Coordinator: RT MEASUREMENT RESULTS: Intervals: Rate: 69 NM: 198 QRSD: 106 QT: 456 QTc: 488 Whick: P: 61 NM: 198 QRS: 78 T: 135 INTERPRETIVE STATEMENTS: Normal sinus rhythm Incomplete right bundle branch block Prolonged QT Abnormal ECG Compared to ECG 10/10/2020 18:36:15 Prolonged QT interval now present Left posterior fascicular block no longer present Myocardial infarct finding no longer present Electronically Signed On 10-11-20 12:37:20 CDT by Taj Raymond
--- NOTE | 2020-10-11 12:41 | EKG ---
Test Date: 2020-10-10 Test Time: 18:36:15 Mental Health Practitioner: BERHANE MEASUREMENT RESULTS: Intervals: Rate: 77 MN: 202 QRSD: 110 QT: 434 QTc: 491 Pacific: P: 65 MN: 202 QRS: 112 T: 138 INTERPRETIVE STATEMENTS: Normal sinus rhythm Incomplete right bundle branch block Left posterior fascicular block Possible Anterior infarct, age undetermined Abnormal ECG Compared to ECG 10/05/2020 19:05:13 Left posterior fascicular block now present Right superior axis no longer present Myocardial infarct finding still present Electronically Signed On 10-11-20 12:37:35 CDT by Taj Raymond
--- NOTE | 2020-10-11 14:03 | ECHO ---
HEIGHT: 5 ft 5 in WEIGHT: 162 lb 1.6 oz DATE OF STUDY: 10/11/[address]: Jaun Parker 2-DIMENSIONAL: YES M.MODE: YES DOPPLER: YES COLOR FLOW: YES TDS: NO PORTABLE: NO DEFINITY: NO BUBBLE STUDY: NO DIAGNOSIS: CHEST PAIN CARDIAC HISTORY: CATHERIZATION: SURGERY: PROSTHETIC VALVE: PACEMAKER: MEASUREMENTS (cm) DIASTOLIC (NORMALS) SYSTOLIC (NORMALS) IVSd 1.8 (0.6-1.2) LA Diam 5.3 (1.9-4.0) LVEF 30-35% LVIDd 3.7 (3.5-5.7) LVIDs 3.0 (2.0-3.5) %FS % LVPWd 1.4 (0.6-1.2) Ao Diam 2.3 (2.0-3.7) 2 DIMENSIONAL ASSESSMENT: RIGHT ATRIUM: NORMAL LEFT ATRIUM: NORMAL RIGHT VENTRICLE: NORMAL LEFT VENTRICLE: NORMAL TRICUSPID VALVE: NORMAL MITRAL VALVE: MITRAL ANNULAR CALCIFICATION PULMONIC VALVE: NORMAL AORTIC VALVE: SCLEROSIS PERICARDIAL EFFUSION: NONE AORTIC ROOT: NORMAL LEFT VENTRICULAR WALL MOTION: SEVERE GLOBAL HYPOKINESIS. DOPPLER/COLOR FLOW: MILD TRIUCSPID REGURGITATION - NORMAL RIGHT VENTRICULAR SYSTOLIC PRESSURE. COMMENTS: SEVERE GLOBAL HYPOKINESIS - EJECTION FRACTION 30-35%. MILD TRICUSPID REGURGITATION. MITRAL ANNULAR CALCIFICATION. AORTIC SCLEROSIS. TECHNOLOGIST: JARED BRADY
--- NOTE | 2020-10-11 15:15 | P.CNS ---
Date of Consult: 10/11/20 Reason for Consult: ESRD , fluid overload , hyperkalemia Chief Complaint: chest pain History of Present Illness: a 65-year-old AA woman with past medical history of ESRD on HD TTsat via tunneled catheter hypertension, diabetes mellitus, COPD, Ex smoker, , CAD S/P CABG, pt presented for SOB chest pain Last HD on Friday , pt presented to Her dialysis unit yesterday and advised to visit ER in ER trop 0.06, then elevated to 0.5 , CXR with Rt pleural effusion Review of Systems: Head and Neck: No red eye. No ear pain. GI: No nausea, no vomiting. : No polyuria, no dysuria, no hematuria. Respiratory: shortness of breath. Cardiovascular: chest pain , no palpitation Endocrine: No polydipsia. Skin: leg erythema Neuro: Has neuropathy. Musculoskeletal: No back pain . Physical exam general: AAOX3, NAD , Neck; Supple, No elevated JVD hear: RRR, normal S1,2 no murmur or rub Chest: CTAB, no rales or wheezes Abdomen: Soft , Nt Extremities both leg dressed , edema A/P ESRD on HD TTsat HD today then will resume her schedule will cont HD TTsat renal dose meds HD tomorrow chest pain F/U repeated cardiac enzymes Cardiology consulted HTN resume home meds DM as per primary anemia of chronic disease no need for epogen at this time Fluid overload with Rt pleural effusion S/p HD Total time spent 65 minutes Allergies morphine Allergy (Severe, Verified 10/11/20 04:32) Anaphylaxis vancomycin Allergy (Intermediate, Verified 10/11/20 04:32) Shortness of breath basil Allergy (Verified 10/11/20 04:32) Nausea/Vomiting tramadol Allergy (Verified 10/11/20 04:32) Nausea/Vomiting trazodone Allergy (Verified 10/11/20 04:32) Nausea/Vomiting nitroglycerin Adverse Reaction (Mild, Verified 10/11/20 04:32) Nausea/Vomiting Home Medications: Allopurinol 100 mg PO BID 06/13/20 Aspirin 81 mg PO DAILY 06/13/20 Atorvastatin Calcium [Lipitor] 40 mg PO BEDTIME 06/13/20 Clopidogrel Bisulfate [Plavix*] 75 mg PO DAILY 06/13/20 Fluticasone [Flovent Hfa 110*] 2 puff IN DAILY 06/13/20 Hydralazine [Apresoline*] 25 mg PO TID 06/13/20 carvediloL [Carvedilol] 6.25 mg PO BID 06/13/20 lisinopriL [Prinivil*] 5 mg PO DAILY 06/13/20 Cholestyramine (with Sugar) [Cholestyramine Packet] 1 packet PO DAILY PRN 06/14/20 Furosemide [Lasix*] 2 tab PO BID 06/14/20 Gabapentin [Neurontin*] 200 mg PO TID 06/14/20 Sertraline HCl 25 mg PO DAILY 06/14/20 Dicyclomine HCl 20 mg PO Q6HP PRN #30 07/19/20 Lactobacillus Acidophilus [Acidophilus] 1 each PO TID #90 capsule 07/19/20 Lipase/Protease/Amylase [Heather Dr 12,000 Units Capsule] 3 cap PO TIDWM #270 cap 07/19/20 Medihoney [Medihoney Woundcare Gel*] 1 appl TOP TuThSa@0900 #1 tube 07/19/20 Sevelamer Carbonate [Renvela*] 800 mg PO TIDWM #90 tablet 07/19/20 Codeine/APAP [Tylenol #3*] 1 tab PO Q6H PRN 3 Days #10 tab 09/23/20 - Past Medical/Surgical History Diabetic: Yes -: COPD -: Hypertension -: CAD, CABG x4 vessels (August 2017) -: Diabetes mellitus type 2, insulin-dependent -: Chronic combined systolic/diastolic CHF -: Uterine cancer status post hysterectomy -: Chronic renal disease, stage IV -: TB as a child - Negative 2017 -: Hyperlipidemia -: Iron deficiency anemia -: WEST -: ESRD on HD -: Rectal surgery -: Hysterectomy -: Cholecystectomy -: Gastric surgery -: Appendectomy -: CABG x4 vessel -: RLE Femoral popliteal bypass -: Left great toe amputation Psychosocial/ Personal History: The patient is a . Her son lives with her. She has 3 children. - Family History Brother Medical History: Heart disease, Hypertension, Cancer Notes: Father Medical History: Heart disease, Lung disease, Cancer Notes: - Prostate surgery - Hemorrhage Mother Medical History: GI disease Notes: Sister Medical History: Heart disease Notes: - Respiratory failure - Social History Smoking Status: Unknown if ever smoked Alcohol use: No CD- Drugs: No Caffeine use: Yes Place of Residence: Home Physical Examination Temp Pulse Resp BP Pulse Ox 97.8 F 69 16 154/85 H 95 10/11/20 08:00 10/11/20 09:58 10/11/20 08:00 10/11/20 09:58 10/11/20 08:00 Laboratory Data (last 24 hrs) 10/10/20 18:34: WBC 7.20, Hgb 10.8 L, Hct 32.8 L, Plt Count 221 10/10/20 18:34: Sodium 135 L, Potassium 4.5, BUN 25 H, Creatinine 2.01 H, Glucose 107 H, Magnesium 2.0, Total Bilirubin 0.4, AST 16, ALT 13, Alkaline Phosphatase 123 H 10/10/20 07:55: PT 13.2 H, INR 1.15
[2020-10-11] MEDS: predniSONE 10 MG TAB PO SCH (20:36)
[2020-10-11] MEDS ORDERED: ATORVASTATIN 40 MG TAB PO SCH (21:00)
[2020-10-11] MEDS ORDERED: ENOXAPARIN 30 MG/0.3 ML SQ SCH (21:00)
[2020-10-11] MEDS ORDERED: ZOLPIDEM TARTRATE 10 MG TABLET PO ONE (22:35)
[2020-10-12] MEDS: IPRATROPIUM BROM 0.5MG/2.5ML NEB SCH ×2 (01:25→08:00)
[2020-10-12 02:13] VITALS: O2SAT 98
--- NOTE | 2020-10-12 04:22 | P.PN ---
Subjective Date of Service: 10/12/20 Chief Complaint: chest pain Subjective: Other (she reports having less shivani She does not complain of chest pain today.) Physical Examination - Vital Signs Temperature: 97.4 F Blood Pressure: 135/74 Pulse: 60 Respirations: 16 Pulse Ox (%): 97 - Physical Exam General: In no apparent distress HEENT: Atraumatic, Normocephalic Neck: Supple, JVD not distended Respiratory: Normal air movement Cardiovascular: No rubs, No murmurs Gastrointestinal: Soft and benign Musculoskeletal: Swelling Integumentary: No warmth Neurological: Normal speech, Normal tone External genitalia: Deferred Rectal: Deferred Assessment And Plan - Plan # ESRD on HD TTS Received PUF yesterday HD today per TTS sked EDW 74.5 kgs HD access: TDC Renal vitamin daily Renal diet Monitor renal panel # Chest Pain; CHF; CAD s/p CABG; Htn Wears LifeVest Eval/mngt per other services Continue current BP & cardioprudent medication regimen # Depression Mngt per primary team # Anemia Cont BRONWYN # Renal osteodystrophy Monitor calcium and phosphorus Cont renvela # Chronic BLE venous stasis ulcers Wound care
[2020-10-12] MEDS: INSULIN -REGULAR HUMAN 50 UNIT/0.5 ML ML SQ SCH ×2 (07:30→11:30)
[2020-10-12] MEDS: LIPASE/PROTEASE/AMYLASE CAP PO SCH ×2 (08:00→11:50)
[2020-10-12] MEDS: carvediloL 6.25 MG TAB PO SCH (08:00)
[2020-10-12] MEDS: predniSONE 10 MG TAB PO SCH (10:15)
[2020-10-12] MEDS: CLOPIDOGREL 75 MG TABLET PO SCH (10:15)
[2020-10-12] MEDS: SERTRALINE HCL 50 MG TAB PO SCH (10:15)
[2020-10-12] MEDS: FUROSEMIDE 40 MG/4 ML VIAL IV SCH (10:16)
[2020-10-12] MEDS: HYDRALAZINE HCL 25 MG TABLET PO SCH ×2 (10:16→12:58)
[2020-10-12] MEDS: allopurinoL 100 MG TAB PO SCH (10:16)
[2020-10-12] MEDS ORDERED: DIPHENHYDRAMINE 50 MG/ML VIAL IV ONE (10:55)
[2020-10-12] MEDS ORDERED: DIPHENHYDRAMINE 50 MG/ML VIAL ONE (11:19)
--- NOTE | 2020-10-12 12:33 | CON ---
Date of Consultation: 10/11/2020 Reason For Consultation: Congestive heart failure. History Of Present Illness: Ms. Priest is a 65-year-old Latin-F[place] woman, very well known to us. She has a history of ADD, CHF, pulmonary hypertension, COPD, diabetes, end-stage renal disease on hem odialysis, dyslipidemia, hypertension, coronary artery disease, status post circumflex stent in 2020, status post CABG. Came in with volume overload secondary to renal failure, congestive hear t failure. Denied chest pain. Denied nausea, vomiting, diaphoresis, PND, orthopnea, pedal edema. D enied palpitations or syncope. Denied fever or chills. Chest x-ray showed possible pneumonia. Urin alysis possible E coli. Review of Systems: Negative. Social History: Negative. Family History: Negative. Medications: Include allopurinol, aspirin, Lipitor, Plavix, Lasix, Neurontin, hydralazine, inhalers, Coreg, and Prinivil. Physical Examination: Vital Signs: Stable, afebrile. HEENT: Negative. Neck: Supple with no bruit. Chest: Reveals rales both bases. Cardiac: Revealed S4 gallops and an S3 gallop with regular rhythm and rate. Abdomen: Benign. Extremities: Revealed 1+ edema. Diagnostic Data: Showed a creatinine of 2.37. Troponin is 0.53. Her BNP was 50,159. Impression And Plan: 1.Acute on chronic systolic congestive heart failure. Another echocardiogram is pending. Ejection fraction in 2020 in May was 50%. 2.Pulmonary hypertension at 45 mmHg. 3.Chronic obstructive pulmonary disease exacerbation. 4.Pneumonia. 5.Urinary tract infection. 6.Diabetes. 7.End-stage renal disease, on hemodialysis. 8.Hypertension. 9.Dyslipidemia. 10.Coronary artery disease, status post coronary artery bypass graft and status post stent in 2020 i n May that is only 5 months ago. I do not think we are dealing with acute coronary syndrome. I think elevated troponin and BNP are secondary to congestive heart failure and renal failure. I woul d discontinue her heparin and plan to do another catheterization on her. I will treat her for conges tive heart failure. I will treat her for pneumonia, treat her for Escherichia coli, get another echo cardiogram, and we will decide what to do later. JAMIA/AUSTYNL Voice ID: [id number] Report ID: [id number]
[2020-10-12 14:40] VITALS: BP 135/74; TEMP 97.4
--- NOTE | 2020-10-14 03:41 | P.PN ---
Subjective Date of Service: 10/11/20 Subjective: No new changes, No C/O voiced Patient's chest pain is improved. Symptoms are better. Review of Systems 10-point ROS is otherwise unremarkable Physical Examination - Vital Signs Temperature: 97.4 F Blood Pressure: 135/74 Pulse: 60 Respirations: 16 Pulse Ox (%): 97 - Physical Exam General: Alert, In no apparent distress, Oriented x3 Respiratory: Clear to auscultation bilaterally, Normal air movement Cardiovascular: Regular rate/rhythm, Normal S1 S2, Systolic murmur Gastrointestinal: Normal bowel sounds, Soft and benign, Non-distended, No tenderness Musculoskeletal: No clubbing, No swelling, No tenderness Neurological: Sensation intact, Cranial nerves 3-12 intact, Normal affect - Studies Medications List Reviewed: Yes Assessment & Plan - Problems (Diagnosis) (1) Chest pain, rule out acute myocardial infarction Status: Acute (2) Unstable angina Status: Acute (3) ESRD (end stage renal disease) Status: Acute (4) Volume overload Onset Date: ~04/26/20 Status: Acute Qualifiers: Hypervolemia type: other Qualified Code(s): E87.79 - Other fluid overload (5) CAD (coronary artery disease) Onset Date: 10/03/17 Status: Chronic Qualifiers: (6) COPD (chronic obstructive pulmonary disease) Onset Date: 02/04/17 Status: Chronic Qualifiers: COPD type: chronic bronchitis (7) Hypertension Status: Chronic Qualifiers: Hypertension type: essential hypertension Qualified Code(s): I10 - Essential (primary) hypertension (8) Lymphedema Status: Chronic (9) Pain Status: Chronic (10) Peripheral vascular disease Onset Date: 10/03/17 Status: Chronic (11) Elevated troponin Onset Date: 09/09/16 Status: Resolved (12) Shortness of breath Onset Date: 10/03/17 Status: Resolved (13) UTI (urinary tract infection) Status: Resolved Qualifiers: Urinary tract infection type: acute cystitis Hematuria presence: without hematuria Qualified Code(s): N30.00 - Acute cystitis without hematuria - Plan 1. Serial troponins and EKG 2. Appreciate Cardiology consultation 3. Echocardiogram and stress test as an outpatient 4. Hold Anti-platelet therapy, and anti coagulation, will continue with beta- gina, statin, and O2 as needed 5. IV morphine for pain 6. Nitro p.r.n. Discharge Plan: Home Plan to discharge in: Greater than 2 days - Advance Directives Does patient have a Living Will: No Does patient have a Durable POA for Healthcare: Yes - Code Status/Comfort Care Code Status Assessed: Yes Code Status: Full Code Critical Care: No Time Spent Managing PTS Care (In Minutes): 35
--- NOTE | 2020-10-14 03:43 | P.DS ---
Discharge Date: 10/12/20 Disposition: DC HOME/HOME HEALTH CARE Discharge Condition: GOOD Reason for Admission: chest pain - Problems (1) Chest pain, rule out acute myocardial infarction Status: Acute (2) Unstable angina Status: Acute (3) ESRD (end stage renal disease) Status: Acute (4) Volume overload Onset Date: ~04/26/20 Status: Acute Qualifiers: Hypervolemia type: other Qualified Code(s): E87.79 - Other fluid overload (5) CAD (coronary artery disease) Onset Date: 10/03/17 Status: Chronic Qualifiers: (6) COPD (chronic obstructive pulmonary disease) Onset Date: 02/04/17 Status: Chronic Qualifiers: COPD type: chronic bronchitis (7) Hypertension Status: Chronic Qualifiers: Hypertension type: essential hypertension Qualified Code(s): I10 - Essential (primary) hypertension (8) Lymphedema Status: Chronic (9) Pain Status: Chronic (10) Peripheral vascular disease Onset Date: 10/03/17 Status: Chronic (11) Elevated troponin Onset Date: 09/09/16 Status: Resolved (12) Shortness of breath Onset Date: 10/03/17 Status: Resolved (13) UTI (urinary tract infection) Status: Resolved Qualifiers: Urinary tract infection type: acute cystitis Hematuria presence: without hematuria Qualified Code(s): N30.00 - Acute cystitis without hematuria Brief History of Present Illness: Ms. Priest is a 65 yo F with CAD s/p CABG, CHF, ESRD on HD TTS, COPD and HTN who presents today with malaise, SOB and chest pain. She says she went to dialysis today and started to feel bad so she asked them to call EMS. Reports wheezing, and episode of vomiting. Denies fever, cough, sputum, pleuritic pain, edema, PND, ESPITIA, diarrhea. Initial troponin 0.15. Hospital Course: Patient is doing much better. Patient clinically is much better. At this time, patient is stable for discharge and we will medicate patient with angina medication. Vital Signs/Physical Exam: Temp Pulse Resp BP Pulse Ox 97.4 F 60 16 135/74 97 10/14/20 03:41 10/14/20 03:41 10/14/20 03:41 10/14/20 03:41 10/14/20 03:41 General: Alert, In no apparent distress, Oriented x3 Laboratory Data at Discharge: WBC 7.80 K/uL (4.3-10.9) 10/11/20 05:27 Hgb 11.3 g/dL (12.0-15.0) L 10/11/20 05:27 Hct 35.1 % (36.0-45.0) L 10/11/20 05:27 Plt Count 236 K/uL (152-406) 10/11/20 05:27 PT 13.2 SECONDS (9.5-12.5) H 10/10/20 07:55 INR 1.15 10/10/20 07:55 APTT 30.5 SECONDS (24.3-36.9) 10/11/20 22:04 Sodium 133 mmol/L (136-145) L 10/11/20 05:27 Potassium 5.4 mmol/L (3.5-5.1) H 10/11/20 05:27 BUN 28 mg/dL (7-18) H 10/11/20 05:27 Creatinine 2.37 mg/dL (0.55-1.3) H 10/11/20 05:27 Glucose 130 mg/dL (74-106) H 10/11/20 05:27 Phosphorus 2.8 mg/dL (2.5-4.9) 10/11/20 05:27 Magnesium 2.0 mg/dL (1.8-2.4) 10/11/20 05:27 Total Bilirubin 0.4 mg/dL (0.2-1.0) 10/11/20 05:27 AST 21 U/L (15-37) 10/11/20 05:27 ALT 12 U/L (12-78) 10/11/20 05:27 Alkaline Phosphatase 133 U/L (45-117) H 10/11/20 05:27 Troponin I 0.53 ng/mL (0.0-0.045) H* 10/11/20 05:27 Triglycerides 76 mg/dL (<150) 10/11/20 05:27 Cholesterol 113 mg/dL (<200) 10/11/20 05:27 HDL Cholesterol 64 mg/dL (40-60) H 10/11/20 05:27 Cholesterol/HDL Ratio 1.77 10/11/20 05:27 Home Medications: Allopurinol 100 mg PO BID 06/13/20 Aspirin 81 mg PO DAILY 06/13/20 Atorvastatin Calcium [Lipitor] 40 mg PO BEDTIME 06/13/20 Clopidogrel Bisulfate [Plavix*] 75 mg PO DAILY 06/13/20 Fluticasone [Flovent Hfa 110*] 2 puff IN DAILY 06/13/20 Hydralazine [Apresoline*] 25 mg PO TID 06/13/20 carvediloL [Carvedilol] 6.25 mg PO BID 06/13/20 lisinopriL [Prinivil*] 5 mg PO DAILY 06/13/20 Cholestyramine (with Sugar) [Cholestyramine Packet] 1 packet PO DAILY PRN 06/14/20 Furosemide [Lasix*] 2 tab PO BID 06/14/20 Gabapentin [Neurontin*] 200 mg PO TID 06/14/20 Sertraline HCl 25 mg PO DAILY 06/14/20 Dicyclomine HCl 20 mg PO Q6HP PRN #30 07/19/20 Lactobacillus Acidophilus [Acidophilus] 1 each PO TID #90 capsule 07/19/20 Lipase/Protease/Amylase [Heather Turpin 12,000 Units Capsule] 3 cap PO TIDWM #270 cap 07/19/20 Medihoney [Medihoney Woundcare Gel*] 1 appl TOP TuThSa@0900 #1 tube 07/19/20 Sevelamer Carbonate [Renvela*] 800 mg PO TIDWM #90 tablet 07/19/20 Codeine/APAP [Tylenol #3*] 1 tab PO Q6H PRN 3 Days #10 tab 09/23/20 Ipratropium Neb [Atrovent*] 0.5 mg NEB [id number] #60 amp 10/12/20 Isosorbide Dinitrate 30 mg PO DAILY #30 tablet 10/12/20 predniSONE [Deltasone*] 10 mg PO BID #14 tab 10/12/20 New Medications: Ipratropium Neb [Atrovent*] 0.5 mg NEB [id number] #60 amp predniSONE [Deltasone*] 10 mg PO BID #14 tab Isosorbide Dinitrate 30 mg PO DAILY #30 tablet Physician Discharge Instructions: OK TO DC IV AND DC HOME FOLLOW-UP WITH PRIMARY CARE PROVIDER IN 1-2 WEEKS FOLLOW-UP WITH CARDIOLOGY IN 1-2 WEEKS Follow-up with Nephrology for hemodialysis RETURN TO THE ER IF symptoms worsen CALL or TEXT DR. COOPER AT [phone] IF ANY QUESTIONS REGARDING HOSPITAL STAY. PLEASE CALL THE FLOOR AT [phone] IF ANY MEDICATION OR NURSING QUESTIONS. Diet: Renal (heart healthy) Activity: Fall precautions Followup: NONE,NONE [Primary Care Provider] - Time spent managing pt's care (in minutes): 35
== END 2020-10-12 16:30 | disposition home health service (06) | DRG 280 ==
LOC: ER 17:42 → ERHOLD 23:02 → 2ND 10-11 17:58
PROVIDERS: ADMIT Hospitalist; ATTEND Hospitalist
PROC: 5A1D70Z Performance of Urinary Filtration, Intermittent, Less than 6 Hours Per Day (ICD-10-PCS; principal; 2020-10-11)
DX: I13.2 Hypertensive heart and chronic kidney disease with heart failure and with stage 5 chronic kidney disease, or end stage renal disease (principal); N18.6 End stage renal disease; I21.9 Acute myocardial infarction, unspecified; I50.23 Acute on chronic systolic (congestive) heart failure; J18.9 Pneumonia, unspecified organism; L97.919 Non-pressure chronic ulcer of unspecified part of right lower leg with unspecified severity; L97.929 Non-pressure chronic ulcer of unspecified part of left lower leg with unspecified severity; J44.1 Chronic obstructive pulmonary disease with (acute) exacerbation; J44.0 Chronic obstructive pulmonary disease with (acute) lower respiratory infection; N30.00 Acute cystitis without hematuria; E11.22 Type 2 diabetes mellitus with diabetic chronic kidney disease; E11.40 Type 2 diabetes mellitus with diabetic neuropathy, unspecified; E11.51 Type 2 diabetes mellitus with diabetic peripheral angiopathy without gangrene; I25.110 Atherosclerotic heart disease of native coronary artery with unstable angina pectoris; D63.8 Anemia in other chronic diseases classified elsewhere; F17.210 Nicotine dependence, cigarettes, uncomplicated; F32.9 Major depressive disorder, single episode, unspecified; N25.0 Renal osteodystrophy; I89.0 Lymphedema, not elsewhere classified; I27.20 Pulmonary hypertension, unspecified; E78.5 Hyperlipidemia, unspecified; I83.009 Varicose veins of unspecified lower extremity with ulcer of unspecified site; B96.20 Unspecified Escherichia coli [E. coli] as the cause of diseases classified elsewhere; R77.8 Other specified abnormalities of plasma proteins; Z88.5 Allergy status to narcotic agent; Z88.1 Allergy status to other antibiotic agents; Z88.8 Allergy status to other drugs, medicaments and biological substances; Z91.09 Other allergy status, other than to drugs and biological substances; Z79.82 Long term (current) use of aspirin; Z79.4 Long term (current) use of insulin; Z99.2 Dependence on renal dialysis; Z79.02 Long term (current) use of antithrombotics/antiplatelets; Z95.1 Presence of aortocoronary bypass graft; Z90.710 Acquired absence of both cervix and uterus; Z79.52 Long term (current) use of systemic steroids; Z85.42 Personal history of malignant neoplasm of other parts of uterus; Z90.49 Acquired absence of other specified parts of digestive tract; Z89.412 Acquired absence of left great toe; Z20.822 Contact with and (suspected) exposure to COVID-19
CPT/HCPCS: 36415; 71045; 80048; 80053; 80061; 80076; 82947; 83605; 83735; 83880; 84100; 84145; 84439; 84443; 84484; 85025; 85610; 85730; 90935; 93005; 93306; 94640; 94760; 99285; J1170; J1200; J1644; J1940; J2405; J2920; J3010; J7512; U0003

== ENCOUNTER 2020-10-24 11:21 | Emergency (ER) | payer OTHER ==
[2011-08-28 08:38] VITALS: BP 161/75
--- OUTSIDE RECORDS SUMMARY | 2020-10-24 11:38 | XMS REPORT | Continuity of Care Document ---
:1955 Author Organization [facility] t Address [address] [place] [address] Care Team Providers Name Role Phone Landy [...] Date Expiration Date Sour ce Cassie ALMANZA [id number] [facility] MEDICAIDMEDICAID 00:00:00 - Medica nicolle [id number] Ce nter 2-Present Problems Condition Condition Condition [...] [facility] - injury) injury) 00:00: Medical 00 [place] Chronic Chronic Disease Active [facility] kidney kidney 2-21 [facility] - disease, disease, 00:00: Medica l stage 3 stage 3 00 [place] CAD CAD Disease Active Overview: [facility] (coronary (coronary 2-20 S/p CABG- L ukes - artery artery 00:00: PRITCHETT-LAD, Medical disease) disease) 00 SVG-PDA,r Matthew ter amus,OM3 on 05/20/17 Atheroscle Atheroscle Disease Active Overview : [facility] rosis of rosis of 2-19 RLE P[facility] [place] [facility] [place] 00:00: Medical artery of artery of 00 Cent er extremity extremity with with ulceration ulceration Acute CHF Acute CHF Disease Active [facility] 2[facility]14 [facility] - 00:00: Medical 00 [place] COPD COPD Disease Active [facility] (chronic (chronic 2-14 [facility] - obstructiv obstructiv 00:00: Ut dical e e 00 Center pulmonary pulmonary disease) disease) Controlled Controlled Disease Active [facility] type 2 type 2 2-14 [facility] - diabetes diabetes 00:00: Medica l mellitus mellitus 00 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 disorder, disorder, with with long-term long-term current current use of use of insulin insulin Smoker Smoker Disease Active [facility] - 00:00: Medical 00 [place] Frequent Frequent Disease Active [facility] t [...] d COPD d COPD 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 [facility] current current [facility] - use of use of Memoria insulin insulin l Outpati ent Clinics History of History of Problem Active [facility] stroke stroke [facility] 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2 [...] St disease disease [facility] Allergies, Adverse Reactions, Alerts Allergy Allergy Status Severity Reaction(s) Onset Inactive Treating Comm ents Source Name Type Date Date Clinician Trazodon Drug Active Nausea And [facility] e Allergy Vomiting 2-12 [facility] - 00:00: Medical 00 [place] Morphine Propensi Active Anaphylaxis [facility] ty to 04-21 [facility] - adverse 00:00: Medical reaction 00 [place] s Nitrogly Propensi Active Nausea And [address] [facility] cerin ty to Vomiting 04-21 ONLY [facility] - adverse 00:00: Medical reaction 00 [place] s Vancomyc Propensi Active Nausea And [facility] in ty to Vomiting 04-21 [facility] - Analogue adverse 00:00: Medical s reaction 00 [place] s Amoxicil Propensi Active Diarrhea [facility] kenzie-Pot ty to 04-21 [facility] - Clavulan adverse 00:00: Medical ate reaction 00 [place] [facility] Basil Propensi Active Nausea Only [facility] ty to 04-21 [facility] - adverse 00:00: Medical reaction 00 [place] s Vancomyc Adverse Active vomiting [facility] t in HCl Reaction [facility] Nitrogly Adverse Active vomiting [facility] t cerin Reaction [facility] Morphine Adverse Active headache, [facility] Sulfate Reaction breathing Luke s - Memoria l [facility] Clindamy Adverse Active vomiting [facility] t riley HCl Reaction [facility] Family History Family Member Diagnosis Comments Start Date Stop Date Source Natural father COPD [facility] Natural father Cancer [facility] Natural father Hypertension [facility] Natural mother No Known Problem [facility] Natural sister Asthma [facility] Natural sister COPD [facility] Social History Social Habit Start Date Stop Date Quantity Comments Source Sex Assigned At [facility] Cigarettes smoked 2019-12-31 2019-12-[address] [facility] - current (pack per 00:00:00 00:00:00 [facility] day) - Reported Cigarette 2019-12-31 2019-12-31 [facility] 00:[facility]:00 00:00:00 [facility] Tobacco use and 2019-12-31 2019-12-31 Never used [facility] - exposure 00:00:00 00:00:00 [facility] Alcohol intake 2019-12-31 2019-12-31 [facility]00 00:00:00 non-drinker of Medical Ce nter alcohol (finding) History of tobacco 2017-05-12 Current sm[facility] - use 00:00:00 [facility] Smoking Status Start Date Stop Date Source Former smoker 2019-12-31 00:00:00 2019-12-31 00:00:00 [facility] Medications Ordered Filled Start Stop Current Ordering Indication Dosage Frequency Signature Comments Components Source Medication Medication Date Date Medication? Clinician (SIG) Name Name mupirocin 2019-03 Yes QD Apply [facility] (BACTROBAN) 0-03 topically Lay [facility] - 2 % 10:49: daily. Medical ointment 00 [place] collagenase 2019-03 Yes QD Apply [facility] (SANTYL) 0-03 topically [facility] - 250 units/g 10:49: daily. Medi marilin ointment 00 [place] bumetanide 2019-03 Yes 2mg [id number] Take [address] (BUMEX) 2 0-03 [id number] by mouth 3 [facility] - MG tablet [...] tablet 11:03: 00:00 daily. Medical 18 :00 [place] isosorbide 2019- No 30mg QD Take 30 [...] [facility]ukes - MOUTH Memoria EVERY DAY l [facility] Acetaminoph Acetaminoph Yes Franki (Schedule [facility] en-Codeine en-Codeine Jas III Drug) Shannon - #3 #3 TAKE 1 Memoria TABLET BY l MOUTH Outpati EVERY 6 ent HOURS Clinics NEEDED FOR PAIN Carvedilol Carvedilol Yes Franki TAKE [address] [facility] Jas TABLET BY Lukes - MOUTH Memoria TWICE A l DAY [facility] Advair Advair Yes Franki INHALE 1 [facility] Diskus Diskus Jas DOSE BY [facility] - MOUTH Memoria TWICE l DAILY. [facility] RINSE ent MOUTH Clinics AFTER USE Atorvastati Atorvastati Yes Franki TAKE [address] [facility] n Calcium n Calcium Jas TABLET BY [facility]ukes - MOUTH Memoria EVERY DAY l Outpati ent Clinics Allopurinol Allopurinol Yes Franki TAKE [address] [facility] [facility] Jas TABLET BY Lukes - MOUTH Memoria TWICE A l DAY [facility] Gabapentin Gabapentin Yes Franki TAKE [address] [facility] Jas CAPSULE BY Lukes - MOUTH Memoria THREE l TIMES A Outpati DAY ent Clinics Clopidogrel Clopidogrel Yes Franki TAKE [address] [facility] Bisulfate Bisulfate Jas TABLET BY [facility]ukes - MOUTH Memoria EVERY DAY l [facility] Vitamin D Vitamin D Yes Franki TAKE ONE [facility] (Ergocalcif (Ergocalcif Jas CAPSULE BY Lukes - berta) berta) MOUTH ONE Memoria TIME PER l WEEK [facility] Furosemide Furosemide Yes Franki [...] Jas UNITS [facility] - BELOW THE [facility] SKIN IN l THE Outpati MORNING ent Clinics HydrALAZINE HydrALAZINE Yes Franki TAKE [address] [facility] [address] HCl HCl Jas TABLET BY Lukes - MOUTH Memoria THREE l TIMES A Outpati DAY ent Clinics Vital Signs Vital Name Observation Time Observation Value Comments Source Heart rate 2020-01-01 08:41:00 60 /min [facility] Respiratory rate 2020-01-01 08:41:00 18 /min [facility] Oxygen saturation in 2020-01-01 08:41:00 100 /min [facility] Arterial blood by Medical Ce nter Pulse oximetry Systolic blood 2020-01-01 08:32:00 162 mm[Hg] [facility] Diastolic blood 2020-01-01 08:32:00 73 mm[Hg] [facility] Body temperature 2020-01-01 07:41:00 36.56 Deanne [facility] Body weight 2019-12-30 04:28:00 78.2 kg [facility] BMI 2019-12-30 04:28:00 27.00 kg/m2 [facility] Body height 2019-12-25 21:05:00 170.2 cm [facility] Procedures Procedure Date / Time Performed Performing Clinician [facility] e REPORT OF PROCEDURE - 2020-01-05 08:40:02 Provider, Default [facility] ENDOSCOPY SCAN Scanning [facility] RHYTHM STRIP - SCAN 2020-01-05 08:31:43 Provider, Default [facility] RHYTHM STRIP - SCAN 2020-01-05 08:31:42 Provider, Default [facility] RHYTHM STRIP - SCAN 2020-01-05 08:31:40 Provider, Default [facility] CARDIAC CATH REPORT - 2020-01-05 08:31:15 Provider, Default [facility] [place] [place] CARDIAC CATH REPORT - 2020-01-05 08:31:[address] [facility] [place] POCT-GLUCOSE METER 2020-01-01 06:33:00 [facility] W/PLT COUNT & AUTO 2020-01-01 05:37:00 BellaireLily [facility] COMPREHENSIVE METABOLIC 2020-01-01 05:37:00 JerichoChloeu [facility] POCT-GLUCOSE METER 2019-12-31 20:50:00 Evens Mohamudruel [facility] POCT-GLUCOSE METER 2019-12-31 18:00:00 Pat Mohamud [facility] POCT-GLUCOSE METER 2019-12-31 11:42:00 Pat Mohamud [facility] POCT-GLUCOSE METER 2019-12-31 06:29:00 Pat Mohamud [facility] CBC W/PLT COUNT & AUTO 2019-12-31 06:05:00 JerichoLily [facility] COMPREHENSIVE METABOLIC 2019-12-31 06:05:00 BellaireLily [facility] MAGNESIUM 2019-12-31 06:05:00 Pat Mohamud Lisa [facility] POCT-GLUCOSE METER 2019-12-30 20:13:00 [facility] POCT-GLUCOSE METER 2019-12-30 16:26:00 [facility] SURGICALLY OBTAINED 2019-12-30 13:59:46 Pat Mohamud [facility] - CULTURE + GRAM STAIN Medical Matthew ter ANAEROBIC CULTURE 2019-12-30 13:59:46 [facility] 2019-12-30 13:54:56 [facility] STAIN Medical Matthew ter ANAEROBIC CULTURE 2019-12-30 13:54:56 Pat Mohamud [facility] TISSUE EXAM 2019-12-30 13:38:00 Tala Santacruz [facility] I&D,BONE FOOT 2019-12-30 13:11:00 Tala Santacruz [facility] POCT-GLUCOSE METER 2019-12-30 11:39:00 Pat Mohamdu [facility] ECG 12-LEAD 2019-12-30 10:53:36 Unknown, Hl7 Doctor [facility] POCT-GLUCOSE METER 2019-12-30 05:39:00 Pat Mohamud [facility] SARS-COV2/RT-PCR ([facility] & 2019-12-30 05:11:00 Pat Mohamud [facility]) [facility] CBC W/PLT COUNT & AUTO 2019-12-30 05:09:00 [facility] COMPRE[facility]IVE METABOLIC 2019-12-30 05:09:00 BellaireLily [facility] POCT-GLUCOSE METER 2019-12-29 21:09:00 [facility] POCT-GLUCOSE METER 2019-12-29 11:10:00 Pat Mohamud [facility] HEMODIALYSIS INPATIENT 2019-12-29 08:12:17 Brandie Khan [facility] POCT-GLUCOSE METER 2019-12-29 06:10:00 [facility] CBC W/PLT COUNT & AUTO 2019-12-29 05:50:00 [facility] COMPREHENSIVE METABOLIC 2019-12-29 05:50:00 BellaireLily [facility] POCT-GLUCOSE METER 2019-12-28 20:37:00 [facility] POCT-GLUCOSE METER 2019-12-28 17:38:00 [facility] POCT-GLUCOSE METER 2019-12-28 13:12:00 [facility]ud [facility] POCT-GLUCOSE METER 2019-12-28 05:43:00 Pat Mohamud [facility] CBC W/PLT COUNT & AUTO 2019-12-28 04:41:00 Jericho Lily [facility] COMPREHENSIVE METABOLIC 2019-12-28 04:41:00 BellaireLily [facility] ABD AO & LOWER EXT 2019-12-28 02:30:00 Sakina Tamayo [facility] - ANGIOS/ POSS PPI [facility] POCT-GLUCOSE METER 2019-12-27 20:32:00 [facility] MR LOWER EXTREMITY 2019-12-27 16:30:00 BellaireLily [facility] - WITHOUT IV CONTRAST [facility] POCT-GLUCOSE METER 2019-12-27 14:06:00 Pat Mohamud [facility] WOUND CULTURE + GRAM 2019-12-27 12:02:00 Annia Delgado [facility] - STAIN [facility] POCT-GLUCOSE METER 2019-12-27 06:44:00 Pat Mohamud [facility] POCT-GLUCOSE METER 2019-12-27 05:49:00 Pat Mohamud [facility] CBC W/PLT COUNT & AUTO 2019-12-27 05:05:00 Lily Echavarria [facility] METABOLIC 2019-12-27 05:05:00 JerichoLily [facility] HEMODIALYSIS INPATIENT 2019-12-27 00:31:18 Brandie Khan [facility] POCT-GLUCOSE METER 2019-12-26 20:51:00 Pat Mohamud [facility] TRANSFUSION SERVICE 2019-12-26 18:02:44 Rocco Sepulveda [facility] REPORT - SCAN Scanning [facility] POCT-GLUCOSE METER 2019-12-26 16:42:00 Pat Mohamud [facility] CT/CTA AAA AND RUNOFF 2019-12-26 15:27:00 Sakina Tamayo [facility] POCT-GLUCOSE METER 2019-12-26 11:59:00 [facility]ud [facility] POCT-GLUCOSE METER 2019-12-26 06:09:00 Cade [facility] CBC W/PLT COUNT & AUTO 2019-12-26 04:36:00 Jericho Lily [facility] DIFFERENTIAL [facility] COMPREHENSIVE METABOLIC 2019-12-26 04:36:00 BellaireLily [facility] PREPARE LEUKO-REDUCED RBC 2019-12-25 23:54:00 Brandie Khan [facility] POCT-GLUCOSE METER 2019-12-25 20:51:00 Cade [facility] TRANSFUSION SERVICE 2019-12-25 18:04:44 Rocco Sepulveda [facility] REPORT - SCAN Scanning [facility] POCT-GLUCOSE METER 2019-12-25 17:01:00 Cade [facility] POCT-GLUCOSE METER 2019-12-25 11:25:00 Cade [facility] CBC W/PLT COUNT & AUTO 2019-12-25 05:59:00 JerichoLily [facility] 2019-12-25 05:59:00 Bellaire [facility] POCT-GLUCOSE METER 2019-12-25 05:58:00 Cade [facility] TRANSFUSE LEUKO-REDUCED 2019-12-24 19:06:17 Brandie Khan [facility] RED BLOOD CELLS [facility] POCT-GLUCOSE METER 2019-12-24 16:15:00 C[facility] ABORH, MANUAL 2019-12-24 08:25:[address] [facility] POCT-GLUCOSE METER 2019-12-24 06:11:00 C[facility] TYPE AND SCREEN, 2019-12-24 06:08:00 Brandie Khan [facility] es - AUTOMATED [facility] CBC W/PLT COUNT & AUTO 2019-12-24 05:51:00 BellaireChloeblanca PERALTA S t [facility] 2019-12-24 05:51:00 Jericho Lily [facility] POCT-GLUCOSE METER 2019-12-23 21:23:00 Pat Mohamud [facility] POCT-GLUCOSE METER 2019-12-23 16:42:00 [facility] MR LOWER EXTREMITY JOINT 2019-12-23 15:34:00 Tala Santacruz hy [facility] - ONLY WITHOUT IV CONTRAST [facility] LEFT MR BRAIN WITHOUT IV 2019-12-23 15:34:00 BellaireLily [facility] - CONTRAST [facility] POCT-GLUCOSE METER 2019-12-23 11:16:00 [facility] ARTERIAL DOPPLER LEGS 2019-12-23 09:38:00 Tala Santacruz Thy [facility] BILATERAL [facility] AMMONIA 2019-12-23 04:05:[address] [facility] CBC W/PLT COUNT & AUTO 2019-12-23 04:00:[address] [facility] 2019-12-23 04:00:00 BellaireLily [facility] SARS-COV2/RT-PCR ([facility] & 2019-12-23 03:59:00 Pat Mohamud [facility] - REF [facility] POCT-GLUCOSE METER 2019-12-22 20:34:00 Pat Mohamud [facility] POCT-GLUCOSE METER 2019-12-22 16:43:00 Pat Mohamud [facility] POCT-GLUCOSE METER 2019-12-22 11:31:00 Pat Mohamud [facility] POCT-GLUCOSE METER 2019-12-22 06:30:00 [facility]ud [facility] CBC W/PLT COUNT & AUTO 2019-12-22 05:14:[address] [facility] 2019-12-22 05:14:00 Chloe Echavarriau [facility] POCT-GLUCOSE METER 2019-12-21 20:26:00 Pat Mohamud [facility] POCT-GLUCOSE METER 2019-12-21 17:22:00 [facility]ud [facility] POCT-GLUCOSE METER 2019-12-21 12:35:00 [facility] POCT-GLUCOSE METER 2019-12-21 07:20:00 Pat [facility]ud [facility] POCT-GLUCOSE METER 2019-12-21 05:52:00 Pat Mohamud [facility] C-REACTIVE PROTEIN 2019-12-21 04:39:[address] [facility] CBC W/PLT COUNT & AUTO 2019-12-21 04:39:00 BellaireChloeu [facility] COMPREHENSIVE METABOLIC 2019-12-21 04:39:00 BellaireLily [facility] US ABDOMEN COMPLETE 2019-12-20 21:17:00 Sakina Chen [facility] POCT-GLUCOSE METER 2019-12-20 20:23:00 Pat Mohamud [facility] POCT-GLUCOSE METER 2019-12-20 17:31:00 Pat Mohamud [facility] CT BRAIN WITHOUT IV 2019-12-20 16:04:00 [facility] 2019-12-20 14:41[facility]LO[facility], ARTERIAL 2019-12-20 14:28:00 [facility] XR FOOT 2 VIEWS LEFT 2019-12-20 11:55:00 Annia Delgado [facility] POCT-GLUCOSE METER 2019-12-20 11:28:00 [facility] POCT-GLUCOSE METER 2019-12-20 06:20:00 Pat Mohamud [facility] OCCULT BLOOD, STOOL 2019-12-20 06:19:00 [facility] PT/APTT 2019-12-20 05:06:00 [facility] FIBRINOGEN 2019-12-20 05:06:00 [facility] D-DIMER 2019-12-20 05:06:00 [facility] IRON, TIBC, % SAT. 2019-12-20 05:06:00 [facility] (WITHOUT FERRITIN) [facility] VITAMIN B12 AND FOLATE 2019-12-20 05:06:00 [facility] RETICULOCYTE COUNT 2019-12-20 05:06:00 [facility] HAPTOGLOBIN 2019-12-20 05:06:00 [facility] TSH/FREE T4 IF INDICATED 2019-12-20 05:06:00 [facility] FERRITIN 2019-12-20 05:06:00 [facility] ANTI-NUCLEAR ANTIBODY 2019-12-20 05:06:00 [facility] KAPPA / LAMBDA LIGHT 2019-12-20 05:06:00 April Sakinara Carrillo [facility] SERUM [facility] PROTEIN ELECTROPHORESIS, 2019-12-20 05:06:00 [facility] Iqba l [facility] PERIPHERAL BLOOD SMEAR - 2019-12-20 05:06:00 April Sakina Iqba l [facility] - PATHOLOGIST REVIEW [facility] r CBC W/PLT COUNT & AUTO 2019-12-20 05:06:00 Marcial Chapa [facility] COMPREHENSIVE METABOLIC 2019-12-20 05:06:00 Marcial Chapa [facility] T4, FREE 2019-12-20 05:06:00 Sakina Chen [facility] ROGER TITER AND PATTERN 2019-12-20 05:06:00 Sakina Chen [facility] POCT-GLUCOSE METER 2019-12-19 20:35:00 [facility]ud [facility] POCT-GLUCOSE METER 2019-12-19 16:06:00 [facility] 2019-12-19 16:02:09 Sharri Fernando [facility] CBC W/PLT COUNT & AUTO 2019-12-19 05:35:00 Marcial Chapa [facility] BASIC METABOLIC PANEL (7) 2019-12-19 05:35:00 Marcial Chapa [facility] LACTATE DEHYDROGENASE 2019-12-19 05:35:00 Sakina Chen [facility] ([facility]) [facility] POCT-GLUCOSE METER 2019-12-19 05:24:00 Pat Mohamud [facility] POCT-GLUCOSE METER 2019-12-18 21:35:00 [facility] POCT-GLUCOSE METER 2019-12-18 16:05:00 Cade [facility] POCT-GLUCOSE METER 2019-12-18 07:45:00 Pat Mohamud [facility] POCT-GLUCOSE METER 2019-12-18 06:14:00 Cade [facility] POCT-GLUCOSE METER 2019-12-17 21:44:00 Cade [facility] POCT-GLUCOSE METER 2019-12-17 17:52:00 Cade [facility] POCT-GLUCOSE METER 2019-12-17 12:22:00 C[facility] HEMODIALYSIS INPATIENT 2019-12-17 10:33:08 Brandie Khan [facility] POCT-GLUCOSE METER 2019-12-17 06:18:00 Pat Mohamud [facility] CBC W/PLT COUNT & AUTO 2019-12-17 04:14:00 Marcial Chapa [facility] COMPREHENSIVE METABOLIC 2019-12-17 04:13:00 Marcial Chapa [facility] POCT-GLUCOSE METER 2019-12-16 20:55:00 [facility] POCT-GLUCOSE METER 2019-12-16 18:24:00 [facility] HEPATITIS B SURFACE 2019-12-16 16:02:00 [facility] ANTIBODY [facility] HEPATITIS B SURFACE 2019-12-16 16:02:00 [facility] ANTIGEN [facility] HEPATITIS C ANTIBODY 2019-12-16 16:02:00 [facility] HE[facility]IS B CORE 2019-12-16 16:02:00 [facility] es - ANTIBODY, TOTAL [facility] POCT-GLUCOSE METER 2019-12-16 14:47:00 [facility] IR TUNNELED DIALYSIS 2019-12-16 14:26:00 Sharri Fernando [facility] CATHETER [facility] HEMODIALYSIS INPATIENT 2019-12-16 12:37:39 Bill [facility] POCT-GLUCOSE METER 2019-12-16 11:01:00 Pat Mohamud [facility] XR CHEST 1 VIEW 2019-12-16 05:55:00 Marcial Chapa [facility] PORTABLE/BEDSIDE Medical Center POCT-GLUCOSE METER 2019-12-16 05:51:00 Pat Mohamud [facility] CBC W/PLT COUNT & AUTO 2019-12-16 04:08:00 Marcial Chapa [facility] BASIC METABOLIC PANEL (7) 2019-12-16 04:08:00 Marcial Chapa [facility] PROTHROMBIN TIME/INR 2019-12-16 04:08:[address] [facility] SARS-COV2/RT-PCR ([facility] & 2019-12-16 01:45:[address] [facility] REF LABS[facility] Plan of Care Planned Activity Planned Date Details Comments Source Future Scheduled 2020-12-[address] [facility] - Test 00:00:00 examination Medical Center (regime/therapy) [code = 190175356] Future Scheduled 2020-12-[address] [facility] - [facility] 00:00[facility]00 [facility] colon (procedure) [code = 026274505] Future Scheduled 2020-11-29 INFLUENZA VACCINE (#1) [facility] Test 00:00:00 [code = INFLUENZA Medical Ce nter VACCINE (#1)] Future Scheduled 2020-03-[address] [facility] - Test 00:00:00 (12+) [code = Medical Center DEPRESSION SCREENING (12+)] Future Scheduled 2020-03-31 FALLS RISK SCREENING [facility] - Test 00:00:00 [code = FALLS RISK Medical C enter SCREENING] Future Scheduled 2020 PNEUMOCOCCAL 65+ YRS [facility] - Test 00:00:00 (1 of 1 - Medical Center [id number]) [code = PNEUMOCOCCAL 65+ YRS (1 of 1 - [id number] PCV13)] Future Scheduled 2017-11-[address] [facility] - Test 00:00:00 measurement [facility] (procedure) [code = 01649624] Future Scheduled 2005 SHINGLES VACCINES ([address] [facility] - Test 00:00:00 of 2) [code = SHINGLES Medic al Center VACCINES (1 of 2)] Future Scheduled [address] [facility] - Test 00:00:00 (procedure) [code = Medical Center [id number]] Future Scheduled 1976 Screening for [facility] cervix (procedure) [code = 863174785] Future Scheduled 1974 DTAP/TDAP/TD VACCINES [facility] [...] 00:00:00 protein (procedure) [facility] [code = 728129879] Future Scheduled [address] [facility] Test 00:00:00 malignant neoplasm of [facility] breast (procedure) [code = 882681347] Encounters Start End Encounter Admission Attending Care Care Encounter Source Date/Time Date/Time Type Type Clinicians Facility Department ID 2020-03-28 2020-03-29 Emergency Chato Fine [facility] [id number] 15:50:00 20:31:00 Maureen Terrazas [id number] [place] [id number] [place] [id number] 2018-11-17 2018-11-17 [facility] [id number] 11:30:00 11:30:00 [facility] 2018-10-06 2018-10-06 [facility] [id number] 16:14:00 16:14:00 [facility] 2018-09-28 2018-09-28 [facility] [id number] 10:30[facility]00 10:30:00 [facility] Results Test Description Test Time Test Comments Results Result Comments Source ANAEROBIC CULTURE 2020-01-04 10:26:00 Test Item Value Reference Range Interpretation Comme nts CULTURE (BEAKER) (test code = 1095) No anaerobes isolated Tissue [id number] 10:21:00 Test Item Value Reference Range Interpretation Comments Case Report (test code Surgical Pathology = 104) Report Case: [id number] Authorizing Provider: Tala Santacruz DPM Collected: 12/30/2019 01:38 PM Ordering Location: [address] Med/Surg Received: 12/31/2019 06:52 AM Pathologist: Jovtia Griffith MD Specimens: A) - Soft Tissue, Other, left 5th proximal phalanx B) - Metatarsal, Left, left 5th metatarsal DIAGNOSIS (test code = [id number] 3220) FuZzEwMzNcZnRuYmpcdWMx TQnntiZbGOusf7CeE6ElLp AwMFxhbnNpXGRlZmxhbmcx CWErERN0rwZtKWJkJExyDB UbZGcgTo1ymRHwsHeiUyBx WFZum8ztvpMJjewrpMi0f6 ofBLDyGpK9yLIuBKbvX5hi lsHpsRYbCYMzNJu6yV25HT MpdF3ovYChVMlcexEgVuU2 FReoFHSrGuE8WRUgeDPwOH LqH7byMSMcIUsjQEKiHXse iNSdTQM4xScda3P8iINmfS AniUlvIcWpAnRsPVFHn8Uh KTd3dSveU6SeATYeQxU9fT QgUGFyYWdyYXBoIEZvbnQ7 iH41DHepliB1wFYvo3Tml6 4bp094gM9bwGAoWQQ0VWBu NTNeeRInMZMvCGK6HWOzvK WuS6j4YdZscRVnH3L8WkGb jMZjM7W4DlKwyOFeV4M1Ag XihLUvCCFsuYOqOe5scKHv lMXbzu6lzu33SWH7x8HfxC okZFO9UVG3KzSyUc1mzTOu RSMtSV7iIsEvgWXvWHDxpo 27lEypLNwyynPtuI5uQkEr OSZneFHnYODlJQ0drJTcRK DnaW3lrpghGELmWwWndjjr IUNdgPanudGnIf9wvOqcNN B2HDmrJ2haiD9jSqO8CTrh D3qfnS7kABn7UEllhYG3UD DowD0bKB6gfeatf3vzGiVs KO3wfbplc3hlUoVwJQ5mfx q2a0xuRqYrLP4ybwsya3gw NzIwXGhlYWRlcnkwXGZvb3 PhmvyfYRDfe1KxX7SpyRre F37pfWqmL53fXPEnvUgtfM 0lhQsadJ9eRjMbGyCpOCoh bFxwbGFpblxmMVxmczIwXG hglktpMMUxQRoqX8ayAhIy MAOxaGftGFxdh3ElIDWxOQ EsBtXvGI8sOt3BOWfhTNTX UUVTHFBPSNQSHj6IID4WXZ NNZZDJAV4SQNHIDS8BH9e2 QBSeoyGdUUQvCQZTKJ7zO2 hLAKURLuCPCrmVCG6VYGCD UlRJTEFHRSBXSVRIIFNVUl BPBM4YBQ2YORBKJRGDYZXW RCBDSFJPTklDIElORkxBTU 1BVElPTlxwYXJccGFyIEIu IEJPTkUsIExFRlQgRklGVE ggTUVUQVRBUlNBTCwgQklP UFNZOlxwYXIgICAgLSBBQ1 FVBPGVC6PHS67LYIgILTyC IFxwYXIgICAgLSBTRVBBUk SEIZOONxGAKSBKJYLkG0Oe RvkZPb8TJ40QAMFXVKMWNY FRT5VIPBITOKSUZEFTD0AK U5NcWY1WD9PYA5tJRYOQGH BHUkFOVUxBVElPTiBUSVNT CUImXv8LQMFTDZ0KGWZgdi 73LLW6QjJhy7V5KOQ0STAk GBYjg9lmVKJzhYEeEtVoCc NcZnRuYmpcdWMxXGRlZmYw c1jap758zRQwy9zgQSGuJe B3jEWzDEGmrNAgT468JGXq GQugs2gwx1MoJFTadJEpe8 U7FTAGvsscbSr3hQxiN37s d2F0CqztD8rmATVfLIOlD6 WzXI6rPEScEao7IZK7QZW7 NAMpTUHfT4MlGZ2pVSRyiT TjEFl7m2rtvIzzCKKvMHR7 c1geZFjsgcWsDB4chb5pwJ q2p2dbvySyUDKrMGFjnJEK GILrG7KpsWmvNn4qvTy3bA qsDqcfABD5Prc4UR6npa50 qlv8pGmkFYOxmikeBuQ4VH djHQPpoxxtGVn0ZFmoGKYk rWR5SPPvbCOaE9JyVMIbRY 4jrwb4DOK0ELeaSUKgUoB8 NDBcaGVhZGVyeTcyMFxmb2 33PLJ9IcAaXJ7hX7Lll0G3 eF2aqTOlHCPdvXGaXxMoOX Cwhx0juMUvRRwos7HkXBD4 ubR5rIPvbXMqPAZqBuA5YG xiSN2zfv86ZQIxIWD2tv3d bGNccGdicmRyaGVhZFxwZ2 YiDBIoo932HUZtE6AyBFPm j9I0ojQwPaRlZMJmtNT0bs T3ITHkCG2pqtlkj6keWMel TWsqQOYjeiQ5lgW3HXWkkF NmD1WxhS2fNHUpGY3rqxdt b0enTZM9DEpsYQWkFFN2Iv VjAQBgs3Rubkm9WsHbe3Zs lFSmWLlsR96rk025QSSato TlJ8xdpPTaliqejXLgqiga VVcdggR4ZPExJAzqavkmTA ZwVMnoL9hoWeBqBDLxqAgi YQamv9HtPKFzFIQpUmAovX ThCLQlXin1JFKtiVKzLJMw FpMiP7eztelvPzSUAQQcg7 osD9boyMTIsSMxB9YuXAqx tjWtGOjiKHkeUNZ4WIS6Ay 02TsS5DYSljd67 CPT Code(s) (test code w5kdlFQjUTZdtMQfWaNtYU = 3359) CcSNLvm3tpWFRvzGBwCcGj MzNcZnRuYmpcdWMxXGRlZm Egr9ikg916hKAze3knAGTs BwQ2uVNxWTXvnDVzV518s5 lmo7aodqOkzBD2HRPxGGC2 JSytacIaviR7GUucdWXnEm Q1CGrpanLvTBcmhhLwihHl Jgv6ZTFmY048MRT6sDbzn6 omMGU4JQVoVNQlQoZkBr4a sDDqO267IMDkPTYRKFZvjF r0FWFounLgofJdoVKOo153 O702d0xwNNBjhnEcqSxZyo gmd5ypQ531WPOqaNQekeMz UzByXHEpaHNfaIR3GMMsWO 2bpylcQlQjZQ2uuizwMoMq EI2tqcz7MuXmDS4rikmhAz OoEWteXWGqavfmXVRxj8Py akwuGO7sA3Qsr1U3jL2tsQ ScXAUagGRjSyBjYHEcvg4d aGHdEPuqh0KyHBB4neM7qS SoeVEnTXDyIR97Cayak8Az QhakRRE2RJEvnxAxv3Uoi9 kyKqXrndZyY2lhU7PsEHOc QERmIPFjIpMyvcTtm7Fkn1 CkxGKsoKs2i1iwVLJoSTXf oNuce3mqZYU3THMkE9F4sT Ldd9flCTdtWVUenFY9hgwt ZUdaPBVqcmL6cjvdSLsyWS WroJV8zztaBSzdKBOgRlH2 stmeIFnkGWUyBYR9WClmx5 36ZDH5YLzbUsjcLJyxQNUn bmNvbnRccGduZGVjXHBsYW luXHBsYWluXGYwXGZzMjRc rXuiqTixfS8aUwCjTiOpYE ytBA4cLTPcA7mteDOoNOZl FZQfB2oxJxOenS5jsMcqNJ zpjkTdPY4IF5S0ACWpmvQ1 LAWuAnI2GjfrWFHfDDwzTO EgeDJccGFyfQ== CLINICAL HISTORY (test r1qfyACqOKWcgEZzEgYxET code = 3350) SrOMEjo2dlEPEvlDNgPkOx MzNcZnRuYmpcdWMxXGRlZm Qrk2ojs700oWMdn8zwUSXj LwB4cFGaSHYksRUsK648s6 vxm7wrzwTmiSB1KHQlWTP1 MIxaqfHglmS7JMswwKDoAb P6YQyyjkSbSLqoreHohmJj Kic6XTHeB296IDI9aIswz4 toCAR3HYLgXWVuCeEiGp5m xQEaZ162GUAmFFGMRKZzfK d3VJLwybRqvoUkwTOMm262 Z153v7lpGPGqwuJtnWgFew emg3bpE854GRCopNGyzoVy UoZjDVGzjDDlzUU2DZRuFR 2opxrqGlQqGT8fuxctVbRm KW3awch7XiFmDS6iqgubRe OjYFycDKSthlgzPZYnw5Op fgjrHW2aB7Hft0D7zB6lwA HmPHDrkQSuLzXsMVPsuw7o dZDvNRahc1EgNSC6qkR8zK UonUJrYEIcGK98Xjneq8Nc FutvJIC8RENduhShd6Wdq0 buPzXscoRwI2tiI4FkACWg QADaHJOaJxFgnmYcf9Xza5 QceKWnpEc5p0wdQGTiUBJr gBbrx3ofIUE0DANiS1U4dE Sjy2tvUBjzZDTsrPW3ntli UCzlWFUmjyZ9hibpZCjkDV FrjJG8nxweFByjTBSuFtA8 rgipNAekTQYjTTA4NQuot8 98ZIG9CEvuUhokAXwwMEHk bmNvbnRccGduZGVjXHBsYW luXHBsYWluXGYwXGZzMjRc hFqkgFcfsD7oBoPnCoMqAO ebXY0hZNDyA7yvoSLsXRWb IISeQ5ksFuTsaY4fmVryYH qpdkTiGK7sbPCxmFlqyYa7 tUZaq6LtjGDivVT7aDywaO H1LYSryoYmlVieiJpvMZRr i5ZvZcofNOVusbAxMAFlMS RccGFyfQ== SPECIMEN SOURCE (test t1covSXjMEWiaLPrOuNoUH code = 3377) YaPZMzx9imXEAdmPMiZoWm MzNcZnRuYmpcdWMxXGRlZm Lzc9nqp439iFFsc1ynMUEy EgZ4lZSrXQYtcGYcL825r2 gng0okzkCmnMJ0DDSyZDQ2 UChnekYaeeY9RCkroUAqEv M3QGdwitRgPXrxgrNutjXe Vni2VTXyK146LMW8hCqch6 qjGCR0GTWiBREgPkTnUr7j iSHdI165JKGhDOWNXUSqzG e2FPKknaFcdpNbnGANj213 C209z8mkJPQvjdZarYxYmn toa7agC278ZIFyeVPfgjEo FzPySOBqcBJlvRQ0TEGsPB 0pmlceJiSeLZ5ugnsxKkAi MJ0npyj6PyOpSC5tsxffYr RvCNgvRTFuasmzULBrv3Vg mkxsDX9pX2Gsj3M9eX6wlA EfFAOegBHrZhVsGQBbcr5w sNFdFOsox5PfWTU2uuA4qV SkxHUcWNXwHW82Wzoqg2Lb KomoFIN7HDKefjWiz0Gwo8 mnWyVasiJtG6nfB7PkZPXz REMlATRpFgIirsHzn3Wcx1 KfbFVkqPx4x9qeWURwLMJe zTcoq4rcEJV4DKMfW1A3jP Kia7lmHTcwIDOjwBN6psio KIdqRRAkcsT9ptbyUEbnFJ ChhCG2nyqxIMaoNXHvDpB8 bxsuRXbgVKNhPXU9QQmfb0 17LUN4ODvoKwvrYZvhKRXf bmNvbnRccGduZGVjXHBsYW luXHBsYWluXGYwXGZzMjRc gKrqyKtayK4cPwReWaGvBG uaHW2oGUVzD5swhPSfLSJe BKDpV6qrSkKgaQ6bzJchCU xmczIwIEEuIExlZnQgNXRo WIYrp0aaqDFhVSBqFHptcz jpCVHkTNqwGdWzJBDjLP8u yRX8PRMsMKtsMLCbzw8= GROSS DESCRIPTION (test b1opoQMpRTSioDFaCcRqDS code = 3366) BxYKQzz0mjLKTgqMWhRkRl MzNcZnRuYmpcdWMxXGRlZm Jlc7fnv978zWNem1ipFTVj MtG6oOOaPDVjnBJrG743DE AvCTzrf8dvo9AjRZFwvIHq p6D1HJTRidegvUb0oCjgC4 9wf4W6AxitK7hxUQVoKFHu H0GwDU0bKBSkQsr8FTI5PD N0HCBcIBLxG4EgKC8oEGGf lQPiXRh0p3sqvYmdUKBaDQ R7l3xoJYlgtiMvKQ6poq6y eCj1h4qactPaCNEjMNXfbR UKHVQaW6QrsQntSh3cwCe3 jIwrFeyhNKW4Riq3FC1weo 66zkx8iYllAXWhxfxmUpH7 EYgsXXIawkhyLQv6DGsbSM JnbDcyMFxtYXJncjcyMFxt YXJndDcyMFxtYXJnYjcyMF wbEHIqEMG1ADjwh788LHF6 BMqhw6nex4lswUMzAsz0JI KtEdWqNvyiUSfke9Oqq5us DNEfag8vJPK0eQFlkVowx2 P2pDOuQTNzlZRlheIkKSLd AsZ3XMmxPD8lme38LTPkDS H7vd7zxLOqgSzhegDnyQRd CMatB4SrJFTbv222BBDzQ6 AjIQZme9G7nnGoIuZbJWBw cIM4ypF1KLQgBGy2tNLznw P9jjXljRQaX3izeM45EzTf pBVpG4DhvL64DnCwgIVjW2 PrxN81JyZrfDLjS6CmqZ33 OgKpyNDwRBMueBHaAp0ypI WqgYCoc4GttVWjQZvjA34n m363WXBquvVqX9dfyLVbeo bgzFEompmzKQizfmB1FMOk XHBsYWluXGYwXGZzMjBcbG FuZzEwMzNcaGljaFxmMFxk FtMrCJEeEUcfD6csHlFoSw DiAZZCjLIctZ0yzvRWZBjy IZWbW1EdhgYiJFouEQLrkA U7uETiFJwiIvInIVLaj5y9 hLR1iIIruYM0bZVjqTkaKN 3guVKmHE9wYN0iORtzGAjs bkGly9RaKE19tLCzisCvwd QgZGVzaWduYXRlZCBhcyAi h03nfVU9yVUtfUWqPC51pE YlAlzuH56za5sdmLTor6Gv j5qlnTVldPWlmL58UUHmxa HhNbBvU77vidFcYI3eSDB3 cmluZyAwLjcgeCAwLjMgeC EqZuYyX54jFTGxCZMixYGu yZ4tdbBjbkBslXCaoPF6FC YvET61iXZibOdgeR87ljLG KSPxalQlxA10neXhIPNjaW Cst3v3dWerfn4nnGGgMYPl wzAVsQBaiM2tbpGYTFqcBX NvM6BqjvVtTDrcLAJwgSR0 oLWtCLtuLmDgHTSze7h1nD S7dJSoeLK6kRAicMlqSK4v wVRjPK1rFK8qPEcoIAtnxv Fvd8XtRO55hNYguvYuddTw ZGVzaWduYXRlZCBhcyAibW Y7OTIyiaZwwKUiXBG6Yszy C97mf0tiiQPtx0TwAa66rq ZdYRGuJiJqk48noWhcd7Ya XUVzXBKep08fAEEeFRrwTX 09fqIgZTCalQHckekkPc7i XVroGQ47ZQlwBR88CSFxQE dsUMBaZ6PqL3P3YK0xhUcq IHNwZWNpbWVuIGlzIGVudG unBYj6FOkeqBOvgyfhMCsq czIwXGxhbmcxMDMzXGhpY2 hqFtKrLBEyyCodIClih5Xu YFGkIOHxQcBxKtVmYA4nNJ taiV5yRJNiSWbcr54krQYq i46uIFYwWOerEUQvEFIbAr BcbGFuZzEwMzNcaGljaFxm NRqrPnZoLDYaUAtdV4xzXv BcZnMyMCAgTUcvZXdccGFy fQ== MICROSCOPIC DESCRIPTION l0efcKUmGZLokRHqDnKcHE (test code = 3371) VnBJGiw6ojOCTqzNRbUqJv MzNcZnRuYmpcdWMxXGRlZm Hvj0loe210xQLjs6jqTYTd MbI9xLPuYRAqbUZaD387i6 gjc9mnlhYrrHH4TSJxKLW0 QAhujfKtqsR4OLuuhQVrVs V9PFtxobSpBHlawnMvapZt Svq2ZZDjO377VEP4qWxcc0 ntXXD9YCPlYUXjLeNfYi7r dSPcR926XCZxZUJCQQUzgA h9UFIyhdFzntMegTQAi955 O721m4uqWQUpirHcoHbLju zbj5veG310KZSnhKUgjkIb AhEfJJNhuIDnkTV3BOOjLS 0oboxsCwNjOO0pnkdiIpHw WD8ulbn0AsDwVJ9bscrbQq IeQAbaMAFufzlrUYEws0Qy qgxhJZ4fF8Ece8P4sO8csY EsVPGaaLGcXxYdTWMvur6o oXZsLPdtl0LjPNX0owT5dH OkfPAoYZJrYT77Virrc1Ws OiikABC9XKAxapRcp7Qtl3 bxWlDdzjPpT1tiB0HqMUQr YMBcOOYgPxEssyDpq8Lpw2 YifRRkfNz4y7ifZHYoWTDu lZwwk2esVOE2ULFvL0G6xY Uqp5dhUIwmCUVwySV3vbht LCmtDFOkypQ1jmtkHJtdDR QwcRU1molhIWezSMHlQkE9 ebdiZTrdCKHwCBN5WQwpi5 84ZHM5SHugPdgmXEadGAKj bmNvbnRccGduZGVjXHBsYW luXHBsYWluXGYwXGZzMjRc zWdbrMjbuQ0xUuTiShIcNG cxUB3dCQScX5jodLNnKIOf TZQzN6ubLxZoeE7xdWwpRU xjnwGlOTWpXc9eCTGmGw0u bWVkLlxwYXJ9 Gross assessment was [facility] performed at ([facility], Department = 2777) of Pathology, [address] [place] [address], Technical component was [facility] performed at ([facility], = 2778) Department of Pathology, [address] [place] [address], Professional component [facility] was performed at ([facility], Department code = 2779) of Pathology, [address] [place] [address], [facility] [id number] 10:21:00Surgical Pathology Report Case: [id number] Authorizing Provider: Tala Santacruz DPM Collected: 12/30/2019 01:38 PM Ordering Location: [address] Med/Surg Received: 12/31/2019 06:52 AM Pathologist: [...] TISSUE FORMATION Signing Pathologist Direct Phone Line: [phone] signed by Jovita Griffith MD on 01/04/2020 at 10:21 AM/[id number] of left 5th metatarsal, ulcer of bilateral [...] entirely B1 and into decal solution. MG/Veronica-B. Performed.[facility], Department of Pathology, [address] [place] [address], [facility], Department of Pathology, [address] [place] [address], [facility], Department of [facility], [address] [place] [address], WMLFUUNVF [id number] 10:47:00 Test Item Value Reference Interpretation Comments [...] negative Staphylococcus SURGICALLY OBTAINED CULTURE + GRAM [id number] 08:31:00 Test Item Value Reference Range Interpretation Comments CULTURE (BEAKER) (test code No growth = 1095) GRAM STAIN RESULT (BEAKER) <1+ WBCs (test code = 1123) GRAM STAIN RESULT (BEAKER) No organisms seen (test code = 25004) SURGICALLY OBTAINED CULTURE + GRAM [id number] 08:19:00 Test Item Value Reference Interpretation Comments Range CULTURE (BEAKER) STENOTROPHOMONAS A 2+ Sten otrophomonas (test code = 1095) MALTOPHILIA maltophil ia Levofloxacin (test S code = 22) Trimethoprim + S Sulfamethoxazole (test code = 47) GRAM STAIN RESULT <1+ WBCs (BEAKER) (test code = 1123) GRAM STAIN RESULT No organisms seen (BEAKER) (test code = 870279) POC-Glucose [id number] 06:47:00 Test Item Value Reference Range Interpretation Comments POC-Glucose Meter (test 102 mg/dL 70-110 : TE STED AT [facility] code = 1538) [address] [facility] [place] [address]: African History Professor/Techni artemio ID = [id number] for Anne Salgado Lab Interpretation (test Normal code = 43855-1) [facility] [id number] 06:47:00 Test Item Value Reference Range Interpretation Comments POC-GLUCOSE METER 102 mg/dL 70-110 : TESTED A T SLS 1317 (BEAKER) (test code [facility], = 1538) [facility] 77 [address]: African History Professor/Techni artemio ID = [id number] for Ashley austin [facility] metabolic [id number] 06:34:00 Test Item Value Reference Range Interpretation Comments Protein, Total (test 6.1 See_Comment [Autom ated code = 2885-2) message] The system which generated this result transmit merna reference range : 6.0 - 8.5 gm/dL . The reference range was not u sed to interpret th is result as normal/abnormal . Albumin (test code = 2.3 g/dL 3.5-5 L 39873-2) Alkaline Phosphatase 81 U/L 30-115 (test code = 6768-6) Total Bilirubin (test 0.4 mg/dL 0.1-1.2 code = 1975-2) Sodium (test code = 137 meq/L 371-619 7365-2) Potassium (test code 3.7 meq/L 3.6-5.5 = 2823-3) Chloride (test code = 100 meq/L 98-106 2075-0) CO2 (test code = 28 meq/L 20-29 2027-9) BUN (test code = 14 mg/dL - 3094-0) Creatinine (test code 2.31 mg/dL 0.5-1.2 H = 2160-0) Glucose (test code = 100 mg/dL 70-110 2345-7) Calcium (test code = 7.5 mg/dL 8.5-10.5 L 19079-5) AST (test code = 15 U/L 5-40 1920-8) ALT (test code = 6 U/L 5-50 1742-6) EGFR (test code = 21 mL/min/1[place]73 [place] [address]-2) NOT ACCURATE CREATININE CLEARANCE IN PREDICTING GLOMERULAR FILTRATION RATE . ESTIMATED GFR I S NOT APPLICABLE FOR DIALYSIS PATIEN TS. ZIA (test code = ZIA) African History Professor ID - ADMIN Lab Interpretation Abnormal (test code = 05635-7) [facility] HospitalCOMPREHENSIVE METABOLIC [id number] 06:34:00 Test Item Value Reference Range Interpretation [...] S NOT APPLICABLE FOR DIALYSIS PATIEN TS. African History Professor ID - ADMINCBC with platelet count + automated [id number] 06:06:00 Test Item Value Reference Range Interpretation Comments WBC (test code = 6690-2) 5.7 See_Comment [A utomated message] The system [employer] generated this result transmitted ref erence range: 4.0 - 10 .0 K/L. The refe rence range was not u sed to interpret this result as normal/abnor mal. RBC (test code = 789-8) 2.41 See_Comment L [Au tomated message] The system [employer] generated this result transmitted ref erence range: 4.00 - 5 .00 M/L. The refe rence range was not u sed to interpret this result as normal/abnor mal. MCHC (test code = 786-4) 30.8 See_Comment L [A utomated message] The system [employer] generated this result transmitted ref erence range: [...] L [Aut omated message] 777-3) The system [employer] generated this result transmitted ref erence range: 150 - 43 0 K/CU MM. The referen ce range was not u sed to interpret this result as normal/abnor mal. MPV (test code = 10.5 fL 6-11.5 19503-5) nRBC (test code = 413) 0 See_Comment [Aut omated message] The system [employer] generated this result transmitted ref erence range: [...] See_Comment [Aut omated message] 670) The system [employer] generated this result transmitted ref erence range: 1.80 - 8 .00 K/L. The refe rence range was not u sed to interpret this result as normal/abnor mal. # Lymphs (test code = 1.66 See_Comment [Auto mated message] 414) The system [employer] generated this result transmitted ref erence range: 1.48 - 4 .50 K/L. The refe rence range was not u sed to interpret this result as normal/abnor mal. # Monos (test code = 0.28 See_Comment [Autom ated message] 415) The system [employer] generated this result transmitted ref erence range: 0.00 - 1 .30 K/L. The refe rence range was not u sed to interpret this result as normal/abnor mal. # Eos (test code = 416) 0.12 See_Comment [Au tomated message] The system [employer] generated this result transmitted ref erence range: 0.00 - 0 .50 K/L. The refe rence range was not u sed to interpret this result as normal/abnor mal. # Baso (test code = 417) 0.07 See_Comment [A utomated message] The system [employer] generated this result transmitted ref erence range: 0.00 - 0 .20 K/L. The refe rence range was not u sed to interpret this result as normal/abnor mal. Immature 0 % 0-0 Granulocytes-Relative (test code = 2801) Lab Interpretation (test Abnormal code = 20496-1) [facility] W/PLT COUNT & AUTO [id number] 06:06:00 Test Item Value Reference Range Interpretation [...] PERCENT (BEAKER) (test code = 2801) POCT-GLUCOSE [id number] 21:02:00 Test Item Value Reference Range Interpretation Comments POC-GLUCOSE METER 167 mg/dL 70-110 H : TESTED A T [address] (BEAKER) (test code [address], = 1538) [place] [address]: African History Professor/Techni artemio ID = [id number] for Anne Busby POCT-GLUCOSE [id number] 18:12:00 Test Item Value Reference Range Interpretation Comments POC-GLUCOSE METER 121 mg/dL 70-110 H : TESTED A T [address] (BEAKER) (test code [address], = 1538) [place] [address]: African History Professor/Techni artemio ID = [id number] for Oneida lucy Aydinveroniac POCT-GLUCOSE [id number] 11:54:00 Test Item Value Reference Range Interpretation Comments POC-GLUCOSE METER 117 mg/dL 70-110 H : TESTED A T [address] (BEAKER) ([facility] [address] = [address]) [place] [id number]: African History Professor/Techni artemio ID = [id number] for Aydin Coheninor COMPREHENSIVE METABOLIC [id number] 06:47:00 Test Item Value Reference Range Interpretation [...] S NOT APPLICABLE FOR DIALYSIS PATIEN TS. African History Professor ID - [id number] 06:42:00 Test Item Value Reference Range Interpretation Comments Magnesium (test code = 1.6 mg/dL 1.5-3 82176-8) ZIA (test code = ZIA) African History Professor ID - ADMIN Lab Interpretation (test Normal code = 54830-3) [facility] [id number] 06:42:00 Test Item Value Reference Range Interpretation Comments POC-GLUCOSE METER 101 mg/dL 70-110 : TESTED A T [address] (BEAKER) (test code [address], = 1538) [facility] [address]: African History Professor/Techni artemio ID = [id number] for Anne Busby [id number] 06:42:00 Test Item Value Reference Range Interpretation Comments MAGNESIUM (BEAKER) (test code = 1.6 mg/dL 1.5-3.0 627) African History Professor ID - ADMINCBC W/PLT COUNT & AUTO [id number] 06:37:00 Test Item Value Reference Range Interpretation [...] PERCENT (BEAKER) (test code = 2801) POCT-GLUCOSE [id number] 20:24:00 Test Item Value Reference Range Interpretation Comments POC-GLUCOSE METER 155 mg/dL 70-110 H : TESTED A T [address] (BEAKER) (test code [address], = 1538) [facility] [address] 478: African History Professor/Techni artemio ID = [id number] for Ashley geovannaAnne POCT-GLUCOSE [id number] 16:39:00 Test Item Value Reference Range Interpretation Comments POC-GLUCOSE METER 164 mg/dL 70-110 H : Notified RN/MD: TESTED (ROBERT) (test code AT [facility] [address] = 1538) [place] [address]: African History Professor/Techni artemio ID = [id number] for Alondra Kelley SARS-CoV2/RT-PCR (Asymptomatic ONLY)2019-12-30 15:57:00 Test Item Value Reference Range Interpretation Comments SARS-COV2/RT-PCR Negative Not Detected, (test code = Negative, See 59243-4) external report for linked test SARS-COV-2 [facility] (test code = 86138-7) ZIA (test code = Negative result for [...] of the Act. Fact Sheet for Healthcare Providers:https://www.[employer].com/sites/default/f loco/product/documents/F act_Sheet_HC_Providers_L sgi_YZKO-BdD-3.pdf Fact Sheet for Healthcare Patients:https://www.[employer]/sites/default/fi les/product/documents/Fa ct_Sheet_Patients_Lyra_S ARS-CoV-2.pdf Performing Laboratory:[facility] [place] [address] [facility] ([facility])2019-12-30 15:57:00 Test Item Value Reference Range Interpretation Comments SARS-COV2/RT-PCR (test Negative Not Detected, Negative, code = 5778315) See external report for linked test SARS-COV-2 PERFORMING LAB [facility] (test code = 5655321) Negative result for this test determines that [...] 564(g) of the Act.Fact Sheet for Healthcare Providers:https://www.[employer]/sites/default/files/product/documents/Fact_Shekey ortizo_KD_Qcwuthapx_Ysnn_HEJO-NiL-9.pdfFact Sheet for Healthcare Patients:https://www.[employer]/sites/default/files/product/ documents/Axbp_Qupcp_Lrjcgacr_Eopj_YWIK-ZoP-4.pdfPerforming Laboratory:[facility] [facility], [place] [address]HRHR-RSZXYIV METER 2019-12-30 11:50:00 Test Item Value Reference Range Interpretation Comments POC-GLUCOSE METER 82 mg/dL 70-110 : Notified RN/MD: TESTED (BEAKER) (test code = AT [address]) [place] [address]: African History Professor/Techni artemio ID = [id number] for Alondra Kelley WOUND CULTURE + GRAM [id number] 10:45:00 Test Item Value Reference Interpretation Comments [...] gram negative (BEAKER) (test code rods = 160152) POCT-GLUCOSE [id number] 05:50:00 Test Item Value Reference Range Interpretation Comments POC-GLUCOSE METER 103 mg/dL 70-110 : Notified RN/MD: TESTED (BEAKER) (test code AT [address] = 1538) [place] [address]: African History Professor/Techni artemio ID = [id number] for Zonia Healy COMPREHENSIVE METABOLIC [id number] 05:44:00 Test Item Value Reference Range Interpretation [...] S NOT APPLICABLE FOR DIALYSIS PATIEN TS. African History Professor ID - ADMINCBC W/PLT COUNT & AUTO [id number] 05:29:00 Test Item Value Reference Range Interpretation [...] PERCENT (BEAKER) (test code = 2801) POCT-GLUCOSE [id number] 21:21:00 Test Item Value Reference Range Interpretation Comments POC-GLUCOSE METER 185 mg/dL 70-110 H : Notified RN/MD: TESTED (BEAKER) (test code AT [facility] [address] [place] [address] = 1538) JAYNALedy [facility] [place] [address]: African History Professor/Techni artemio ID = [id number] for Zonia Healy POCT-GLUCOSE [id number] 11:21:00 Test Item Value Reference Range Interpretation Comments POC-GLUCOSE METER 143 mg/dL 70-110 H : Notified RN/MD: TESTED (BEAKER) (test code AT [address] = 1538) [place] [address]: African History Professor/Techni artemio ID = [id number] for Alondra Kelley COMPREHENSIVE METABOLIC [id number] 06:27:00 Test Item Value Reference Range Interpretation [...] S NOT APPLICABLE FOR DIALYSIS PATIEN TS. African History Professor ID - ADMINPOCT-GLUCOSE [id number] 06:21:00 Test Item Value Reference Range Interpretation Comments POC-GLUCOSE METER 73 mg/dL 70-110 : Notified RN/MD: TESTED (BEAKER) (test code = AT [address]) [facility] [address]: African History Professor/Techni artemio ID = [id number] for Zonia Healy CBC W/PLT COUNT & AUTO [id number] 06:00:00 Test Item Value Reference Range Interpretation [...] PERCENT (BEAKER) (test code = 2801) POCT-GLUCOSE [id number] 20:48:00 Test Item Value Reference Range Interpretation Comments POC-GLUCOSE METER 84 mg/dL 70-110 : Notified RN/MD: [facility] (test code = AT [address]) [place] [address]38: African History Professor/Techni artemio ID = [id number] for Zonia Healy POCT-GLUCOSE [id number] 17:51:00 Test Item Value Reference Range Interpretation Comments POC-GLUCOSE METER 59 mg/dL 70-110 L : TESTED A T [facility] 1317 ([facility]) (test code = [address] [facility], 153) [place] [address]: African History Professor/Techni artemio ID = [id number] for Christina r, Berta POCT-GLUCOSE [id number] 13:28:00 Test Item Value Reference Range Interpretation Comments POC-GLUCOSE METER 67 mg/dL 70-110 L : TESTED A T [facility] 1317 ([facility]) ([facility] [place] [address]: African History Professor/Techni artemio ID = [id number] for Christina r, Berta POCT-GLUCOSE [id number] 06:04:00 Test Item Value Reference Range Interpretation Comments POC-GLUCOSE METER 94 mg/dL 70-110 : TESTED A T [facility] 1317 (BEAKER) (test [facility] = [facility] [place] [address]: African History Professor/Techni artemio ID = [id number] for Anahi Sherman COMPREHENSIVE METABOLIC [id number] 05:35:00 Test Item Value Reference Range Interpretation [...] S NOT APPLICABLE FOR DIALYSIS PATIEN TS. African History Professor ID - ADMINCBC W/PLT COUNT & AUTO [id number] 04:56:00 Test Item Value Reference Range Interpretation [...] PERCENT (BEAKER) (test code = 2801) POCT-GLUCOSE [id number] 20:43:00 Test Item Value Reference Range Interpretation Comments POC-GLUCOSE METER 137 mg/dL 70-110 H : TESTED A T SLSL 1317 (BEAKER) ([facility] [address] = [address]) [facility] [address]: African History Professor/Techni artemio ID = [id number] for Anahi Sherman, EXTREMITY, LOWER, WITHOUT CONTRAST, [id number] 16:55:00MRI LEFT FOOT.Unlisted Reason for Exam - [...] MDReport Verified Date/Time: 12/27/2019 16:55:07 Reading Location: [facility] Radiology Reading Room MR lower extremity without IV contrast left [id number] 16:55:00Interface, External Ris In - 12/27/2019 4:57 [...] Ring Verified Date/Time: 12/27/2019 16:55:07 Reading Location: [facility] Radiology Reading Room Electronically signed by: Adrienne CHU 12/27/2019 04:55 [facility] [id number] 14:19:00 Test Item Value Reference Range Interpretation Comments POC-GLUCOSE METER 232 mg/dL 70-110 H : TESTED A T [facility] 1317 (ROBERT) (test code [address], = 1538) [facility] [address]: African History Professor/Techni artemio ID = [id number] for Berta Servin, CTA AAA, W/ GÓMEZ.EXT.[id number] 11:38:00Bilateral lower extremities Addendum BeginsREPORT STATUS:A I agree with the nonvascular findings with exceptions and emphasis as below:*Moderate right and small left pleural effusions are partially visualized.*Large volume ascites.*Diffuse anasarca*The reflux of contrast into the hepatic veins is concerning for volume overload. Signed: Molly Linares MDReport Verified Date/Time: 12/27/2019 11:38:28 Reading Location: [facility] Diagnostic Imaging Reading Room - [place] [id number] EndsFINAL REPORT CT angiography of the abdominal aorta and runoff, 26-Dec-19 INDICATION: This is a 64 year old female with with lower leg penetrating trauma presents for assessment. TECHNIQUE: Spiral acquisition before and during intravenous contrast administration using a Verenium multidetector CT scanner. Images were obtained before [...] identified. However, significant calcification identified of the [place] left SFA, for example at image 516, [...] the right popliteal artery is patent, with sylv-zv-zotxplhx diffuse calcification identified with no obstructive lesion [...] However, in the distal left SFA, the [place] artery substantial calcification identified and the stent [...] atherosclerosis identified. 4. In the right, the [place] right SFA is not filled by contrast [...] dictated regarding the non-vascular findings by the Utility Division Project Manager Radiologist. Signed: Shlomo Dockery Verified Date/Time: 12/27/2019 07:59:51 Reading Location: [place] [address] [address] Reading Room Protein electrophoresis, serum 2019-12-27 [...] (test 6.3 See_Comment [Autom ated code = 1310) message] The system which generated this result transmitted reference range : 6.0 - 8.3 gm/dL . The reference range was not used to interpr et this result as normal/abnormal . ZIA (test code = African History Professor ID - ZIA) LEONIE Jay Lab Interpretation Abnormal (test code = 67088-0) [facility] HospitalPROTEIN ELECTROPHORESIS, [id number] 09:29:00 Test Item Value Reference Range Interpretation [...] chronic inflammatory response. No monoclonal bands detected. [id number] Rocio Galindo MD (BEAKER) (test code = (electronic signature) 2616) PROTEIN TOTAL SERUM, 6.3 gm/dL 6.0-8.3 SPEP (BEAKER) (test code = 2660) African History Professor ID - [place] FCTA AAA and [id number] 07:59:00Interface, External Ris In - 12/27/2019 11:40 AM CDTAddendum BeginsREPORT STATUS:A I agree with the nonvascular findings with exceptions and emphasis as below:*Moderate right andsmall left pleural effusions are partially visualized.*Large volume ascites.*Diffuse anasarca*The reflux of contrast into the hepatic veins is concerning for volume overload. Signed: Molly Linares MDReport Verified Date/Time: 12/27/2019 11:38:28 Reading Location: [facility] Diagnostic Imaging Reading Room - [place] [address] [address] angiography of the abdominal aorta and runoff, 26-Dec-19 INDICATION: This is a 64 year old female with with lower leg penetrating trauma presents for assessment. TECHNIQUE: Spiral acquisition before and during intravenous contrast administration using a Verenium multidetector CT scanner. Images were obtained before [...] identified. However, significant calcification identified of the [place] left SFA, for example at image 516, [...] the right popliteal artery is patent, with pvlq-kb-jldgbqmq diffuse calcification identified with no obstructive lesion [...] However, in the distal left SFA, the [place] artery substantial calcification identified and the stent [...] atherosclerosis identified. 4. In the right, the [place] right SFA is not filled by contrast [...] dictated regarding the non-vascular findings by the Utility Division Project Manager Radiologist. Signed: Shloom Dockery MDReport Verified Date/Time: 12/27/2019 07:59:51 Reading Location: [place] [address] [address] Reading [facility] [id number] 06:56:00 Test Item Value Reference Range Interpretation Comments POC-GLUCOSE METER 39 mg/dL 70-110 LL : Notified RN/: TESTED (BEAKER) (test code = AT [address]LS [address]) [facility] [address]: African History Professor/Techni artemio ID = [id number] for Anahi Sherman COMPREHENSIVE METABOLIC [id number] 06:15:00 Test Item Value Reference Range Interpretation [...] S NOT APPLICABLE FOR DIALYSIS PATIEN TS. African History Professor ID - ADMINPOCT-GLUCOSE [id number] 06:01:00 Test Item Value Reference Range Interpretation Comments POC-GLUCOSE METER 55 mg/dL 70-110 L : Notified RN/MD: TESTED (BEAKER) (test code = AT SLS L [address]) [facility] [address]: African History Professor/Techni artemio ID = [id number] for Anahi Sherman CBC W/PLT COUNT & AUTO [id number] 05:44:00 Test Item Value Reference Range Interpretation [...] PERCENT (BEAKER) (test code = 2801) POCT-GLUCOSE [id number] 21:03:00 Test Item Value Reference Range Interpretation Comments POC-GLUCOSE METER 278 mg/dL 70-110 H : Notified RN/MD: TESTED ([facility]) (test code AT [facility] [address] = 1538) [place] [address]: African History Professor/Techni artemio ID = [id number] for Anahi Sherman POCT-GLUCOSE [id number] 16:53:00 Test Item Value Reference Range Interpretation Comments POC-GLUCOSE METER 70 mg/dL 70-110 : TESTED A T [facility] 1317 ([facility]) (test code = [facility], 153) [place] [address]: African History Professor/Techni artemio ID = [id number] for Nalini Jean Baptiste POCT-GLUCOSE [id number] 12:11:00 Test Item Value Reference Range Interpretation Comments POC-GLUCOSE METER 97 mg/dL 70-110 : [facility] (test code = [facility], 153) [place] [address]: African History Professor/Techni artemio ID = [id number] for Akhil hurtado, Rachleleea POCT-GLUCOSE [id number] 06:21:00 Test Item Value Reference Range Interpretation Comments POC-GLUCOSE METER 71 mg/dL 70-110 : [facility] (test code = [facility], 153) [place] [address]: African History Professor/Techni artemio ID = [id number] for Holly Alamo COMPREHENSIVE METABOLIC [id number] 05:50:00 Test Item Value Reference Range Interpretation [...] S NOT APPLICABLE FOR DIALYSIS PATIEN TS. African History Professor ID - ADMINCBC W/PLT COUNT & AUTO [id number] 05:17:00 Test Item Value Reference Range Interpretation [...] (BEAKER) (test code = 2801) Prepare Leuko-Red [id number] 23:54:00 Test Item Value Reference Range Interpretation Comments CROSSMATCH (test code = 2264) COMPATIBLE Unit ABO (test code = O Pos 2092675) UNIT NUMBER (test code = [id number] 934-0) Status (test code = 8721896) TX_TIMEINCHART Blood Bank Product (test code RED BLOOD CELLS = 2263) PRODUCT CODE (test code = P3946F15 933-2) [facility]PO[facility] [id number] 21:03:00 Test Item Value Reference Range Interpretation Comments POC-GLUCOSE METER 87 mg/dL 70-110 : TESTED A T [facility] 1317 (BEAKER) (test code = [address], [address]) [place] [address]: African History Professor/Techni artemio ID = [id number] for Nwjanis iufuKolbyl POCT-GLUCOSE [id number] 17:12:00 Test Item Value Reference Range Interpretation Comments POC-GLUCOSE METER 79 mg/dL 70-110 : TESTED A T [facility] 1317 (BEAKER) (test code = [address], [address]) [place] [address]: African History Professor/Techni artemio ID = [id number] for Nalini Jean Baptiste POCT-GLUCOSE [id number] 11:37:00 Test Item Value Reference Range Interpretation Comments POC-GLUCOSE METER 262 mg/dL 70-110 H : TESTED A T [facility] [address]17 (BEAKER) (test code [address], = 1538) [place] [address]: African History Professor/Techni artemio ID = [id number] for Nalini Jean Baptiste COMPREHENSIVE METABOLIC [id number] 06:29:00 Test Item Value Reference Range Interpretation [...] S NOT APPLICABLE FOR DIALYSIS PATIEN TS. African History Professor ID - ADMINCBC W/PLT COUNT & AUTO [id number] 06:12:00 Test Item Value Reference Range Interpretation [...] PERCENT (BEAKER) (test code = 2801) POCT-GLUCOSE [id number] 06:09:00 Test Item Value Reference Range Interpretation Comments POC-GLUCOSE METER 83 mg/dL 70-110 : Notified RN/MD: TESTED (BEAKER) (test code = AT [facility] L [address]) [place] [address]: African History Professor/Techni artemio ID = [id number] for Anahi Sherman POCT-GLUCOSE [id number] 16:26:00 Test Item Value Reference Range Interpretation Comments POC-GLUCOSE METER 182 mg/dL 70-110 H : Notified RN/MD: TESTED (BEAKER) (test code AT [facility] [address] = 1538) [place] [address]: African History Professor/Techni artemio ID = [id number] for Alondra Kelley, [id number] 09:17:00 Test Item Value Reference Range Interpretation Comments Rh Factor (test code = POS 2589) ABO Grouping (test code O PINK TOP 12/24/19 @ 0824 = 2588) [facility] HospitalType and screen, [id number] 07:31:00 Test Item Value Reference Range Interpretation Comments ABO/RH AUTOMATED (BEAKER) (test O POSITIVE ECHO code = 2260) Ab Scrn (test code = 890-4) NEGATIVE ECHO [facility] [id number] 06:42:00 Test Item Value Reference Range Interpretation [...] S NOT APPLICABLE FOR DIALYSIS PATIEN TS. African History Professor ID - ADMINPOCT-GLUCOSE [id number] 06:23:00 Test Item Value Reference Range Interpretation Comments POC-GLUCOSE METER 88 mg/dL 70-110 : TESTED A T [facility] 1317 (BEAKER) (test code = [address], 1538) [facility] [address]: African History Professor/Techni artemio ID = [id number] for Anne Busby CBC W/PLT COUNT & AUTO [id number] 06:23:00 Test Item Value Reference Range Interpretation [...] PERCENT (BEAKER) (test code = 2801) POCT-GLUCOSE [id number] 21:38:00 Test Item Value Reference Range Interpretation Comments POC-GLUCOSE METER 126 mg/dL 70-110 H : TESTED A T [facility]SL 1317 (BEAKER) (test code [address], = 1538) [facility] [address]: African History Professor/Techni artemio ID = [id number] for Anne Busby POCT-GLUCOSE [id number] 16:54:00 Test Item Value Reference Range Interpretation Comments POC-GLUCOSE METER 89 mg/dL 70-110 : Notified RN/MD: TESTED (ROBERT) (test code = AT SLS L [address]) [facility] [address]: African History Professor/Techni artemio ID = [id number] for Alondra Kelley MR, EXTREMITY, LOWER, JOINT, WITHOUT CONTRAST, [id number] 16:10:00Unlisted Reason for Exam - Click Yes [...] Jordaneport Verified Date/Time: 12/23/2019 16:10:32 Reading Location: [facility] B1 C013X Ortho Consult Reading Room MR lower extremity joint only without IV contrast left [id number] 16:10:00Interface, External Ris In - 12/23/2019 4:12 [...] MDReport Verified Date/Time: 12/23/2019 16:10:32 Reading Location: [facility] B1 C013X Ortho Consult Reading [facility], WITHOUT [id number] 15:43:00Unlisted Reason for Exam - Click Yes [...] scalp: Unremarkable. IMPRESSION:No acute intracranial abnormality. Signed: Breta Muniz Verified Date/Time: 12/23/2019 15:43:24 MR brain without IV [id number] 15:43:00Interface, External Ris In - 12/23/2019 3:45 [...] Signed: Berta Muniz Verified Date/Time: 12/23/2019 15:43:24 [facility] ([facility])2019-12-23 14:16:00 Test Item Value Reference Range Interpretation Comments SARS-COV2/RT-PCR (test Negative Not Detected, Negative, code = 0439475) See external report for linked test SARS-COV-2 PERFORMING LAB [facility] JANET (test code = 9194191) Negative result for this test determines that [...] 564(g) of the Act.Fact Sheet for Healthcare Providers:https://www.Optini.com/sites/default/files/product/documents/Fact_Shee l_AQ_Pqccdiczm_Linz_BFZM-GmY-6.pdfFact Sheet for Healthcare Patients:https://www.Optini.com/sites/default/files/product/ documents/Ousv_Sttvf_Iqieihbd_Banr_VNBJ-UxW-3.pdfPerforming Laboratory:[facility] [place], [place] [address]Jmuik / lambda light chains, [id number] 12:25:00 Test Item Value Reference Interpretation Comments Range Saks Lt Chain,Free 474.4 mg/L 3.3-19.4 H (test code = 03355-5) Lambda Lt 225.6 mg/L 5.7-26.3 H Chain,Free (test code = 44251-9) Saks/Lambda,Free 2.1 0.26-1.65 H Free annabelle a/lambda (test [...] (test code = Performing Lab ZIA) EZ [employer] [facility] [address] [place] [address] Jaguar Stein MD, PhD, CORI Lab Interpretation Abnormal (test code = 90890-6) [facility] HospitalPOCT-GLUCOSE [id number] 11:27:00 Test Item Value Reference Range Interpretation Comments POC-GLUCOSE METER 189 mg/dL 70-110 H : Notified RN/MD: TESTED (ROBERT) (test code AT [facility] [address] [place] [address] = 1538) [facility] [address]: African History Professor/Techni artemio ID = [id number] for Repa julio, Alondra ARTERIAL DOPPLER LEGS, [id number] 11:22:00Reason for exam:->non healing ulcer , non [...] MDReport Verified Date/Time: 12/23/2019 11:22:31 Reading Location: [facility] Radiology Reading Room Arterial Doppler Legs [id number] 11:22:00 Interface, External Ris In - 12/23/2019 [...] Monahan Verified Date/Time: 12/23/2019 11:22:31 Reading Location: [facility] Radiology Reading Room [facility] [id number] 04:44:00 Test Item Value Reference Range Interpretation [...] S NOT APPLICABLE FOR DIALYSIS PATIEN TS. African History Professor ID - ADMINCBC W/PLT COUNT & AUTO [id number] 04:35:00 Test Item Value Reference Range Interpretation [...] H PERCENT (BEAKER) (test code = 2801) [id number] 04:29:00 Test Item Value Reference Range Interpretation Comments Ammonia (test code = 36 See_Comment [Autom ated 83046-7) message] The system which generated this result transmit merna reference range : 17 - 80 mol/L . The reference range was not u sed to interpret th is result as normal/abnormal . ZIA (test code = ZIA) African History Professor ID - ADMIN Lab Interpretation Normal (test code = 34159-1) [facility]2020-09-24 04:29:00 Test Item Value Reference Range Interpretation Comments AMMONIA (BEAKER) (test code = 348) 36 mol/L 17-80 African History Professor ID - ADMINPOCT-GLUCOSE [id number] 20:45:00 Test Item Value Reference Range Interpretation Comments POC-GLUCOSE METER 95 mg/dL 70-110 : TESTED A T [facility] [address]17 (BEAKER) (test code = [address], 15[address]) [place] [address]: African History Professor/Techni artemio ID = [id number] for Anne Busby POCT-GLUCOSE [id number] 17:08:00 Test Item Value Reference Range Interpretation Comments POC-GLUCOSE METER 107 mg/dL 70-110 : TESTED A T [facility] [address]17 (BEAKER) (test code [address], = 1538) [place] [address]: African History Professor/Techni artemio ID = [id number] for Jordyn Fonseca POCT-GLUCOSE [id number] 11:55:00 Test Item Value Reference Range Interpretation Comments POC-GLUCOSE METER 135 mg/dL 70-110 H : TESTED A T [facility] [address]17 (BEAKER) (test code [address], = 1538) [place] [address]: African History Professor/Techni artemio ID = [id number] for Jordyn Fonseca ROGER Titer & [id number] 11:40:00 Test Item Value Reference Range Interpretation Comments ROGER Titer (test code = 86775-9) 1:40 ROGER Pattern (test code = 1781) Speckled [facility] HospitalAnti-Nuclear Antibody (ROGER)2019-12-22 11:40:00 Test Item Value Reference Range Interpretation Comments ROGER (test code = 73094-8) Positive Negative A ZIA (test code = ZIA) Test performed by IFA method. Lab Interpretation (test Abnormal code = 84509-6) [facility] HospitalANTI-NUCLEAR ANTIBODY (ROGER)2019-12-22 11:40:00 Test Item Value Reference Range Interpretation Comments ANTI-NUCLEAR ANTIBODY (ROGER) (BEAKER) Positive Negative A (test code = 418) Test performed by IFA method.ROGER TITER AND [id number] 11:40:00 Test Item Value Reference Range Interpretation Comments ROGER TITER (BEAKER) (test code = :40 1541) ROGER PATTERN (BEAKER) (test code = Speckled 1781) POCT-GLUCOSE [id number] 06:44:00 Test Item Value Reference Range Interpretation Comments POC-GLUCOSE METER 92 mg/dL 70-110 : TESTED A T [facility] 1317 (BEAKER) (test code = [address], 1538) [facility] [place] [address]: African History Professor/Techni artemio ID = [id number] for Anne Busby COMPREHENSIVE METABOLIC [id number] 06:35:00 Test Item Value Reference Range Interpretation [...] S NOT APPLICABLE FOR DIALYSIS PATIEN TS. African History Professor ID - ADMINCBC W/PLT COUNT & AUTO [id number] 06:16:00 Test Item Value Reference Range Interpretation [...] PERCENT (BEAKER) (test code = 2801) POCT-GLUCOSE [id number] 20:38:00 Test Item Value Reference Range Interpretation Comments POC-GLUCOSE METER 85 mg/dL 70-110 : TESTED A T [facility] [address]17 (BEAKER) (test code = [address], 1538) [place] [address]: African History Professor/Techni artemio ID = [id number] for Anne Busby POCT-GLUCOSE [id number] 18:14:00 Test Item Value Reference Range Interpretation Comments POC-GLUCOSE METER 112 mg/dL 70-110 H : TESTED A T [facility] [address] (BEAKER) (test code [address], = 1538) [place] [address]: African History Professor/Techni artemio ID = [id number] for Christina r, Berta POCT-GLUCOSE [id number] 13:00:00 Test Item Value Reference Range Interpretation Comments POC-GLUCOSE METER 77 mg/dL 70-110 : TESTED A T [facility] [address]17 (BEAKER) (test code = [address], 1538) [place] [address]: African History Professor/Techni artemio ID = [id number] for Christina r, Berta POCT-GLUCOSE [id number] 07:32:00 Test Item Value Reference Range Interpretation Comments POC-GLUCOSE METER 60 mg/dL 70-110 L : TESTED A T [facility] [address]17 (BEAKER) (test code = [address], 1538) [place] [address]: African History Professor/Techni artemio ID = [id number] for Marissa Page COMPREHENSIVE METABOLIC [id number] 06:11:00 Test Item Value Reference Range Interpretation [...] S NOT APPLICABLE FOR DIALYSIS PATIEN TS. African History Professor ID - ADMINC-Reactive [id number] 06:06:00 Test Item Value Reference Range Interpretation Comments CRP (test code = 676) 1.63 mg/dL 0-0.5 H ZIA (test code = ZIA) African History Professor ID - ADMIN Lab Interpretation (test Abnormal code = 13673-6) [facility] HospitalC-REACTIVE [id number] 06:06:00 Test Item Value Reference Range Interpretation Comments C-REACTIVE PROTEIN (BEAKER) (test 1.63 mg/dL 0.00-0.50 H code = 676) African History Professor ID - ADMINPOCT-GLUCOSE [id number] 06:04:00 Test Item Value Reference Range Interpretation Comments POC-GLUCOSE METER 56 mg/dL 70-110 L : Notified RN/MD: TESTED (BEAKER) (test code = AT SLS L [address]) [facility] [place] [address]: African History Professor/Techni artemio ID = [id number] for Nelda Abdi CBC W/PLT COUNT & AUTO [id number] 05:53:00 Test Item Value Reference Range Interpretation [...] (BEAKER) (test code = 2801) U/S, ABDOMINAL, [id number] 22:02:00Reason for exam:->thrombocytopenia / eval for hepatosplenomegalyFINAL [...] MDReport Verified Date/Time: 12/20/2019 22:02:21 US abdomen [id number] 22:02:00Interface, External Ris In - 12/20/2019 10:04 [...] Hever Marin MDReport Verified Date/Time: 12/20/2019 22:02:21 [facility] [id number] 20:36:00 Test Item Value Reference Range Interpretation Comments POC-GLUCOSE METER 74 mg/dL 70-110 : Notified RN/: TESTED (BEAKER) (test code = AT SLS L [address]) [facility] [address]: African History Professor/Techni artemio ID = [id number] for Nelda Abdi POCT-GLUCOSE [id number] 17:50:00 Test Item Value Reference Range Interpretation Comments POC-GLUCOSE METER 72 mg/dL 70-110 : TESTED A T [facility]SL 1317 (BEAKER) (test [facility] = [facility] [facility] [facility] [address]: African History Professor/Techni artemio ID = [id number] for Berta Servin CT, BRAIN, WITHOUT [id number] 16:08:00Unlisted Reason for Exam - Click Yes [...] recommended for further characterization. Signed: Berta Muniz [facility] Verified Date/Time: 12/20/2019 16:08:40 CT brain without IV [id number] 16:08:00Interface, External Ris In - 12/20/2019 4:10 [...] Berta Muniz MDReport Verified Date/Time: 12/20/2019 16:08:40 [facility] CenterRAD, [facility]OT, 2 VIEWS, [id number] 15:15:00Reason for exam:->Rule out osteomyelitisShould this be [...] MDReport Verified Date/Time: 12/20/2019 15:15:25 Reading Location: [facility] Radiology Reading Room , FOOT, 2 VIEWS, [id number] 15:15:00Reason for exam:->Rule out osteomyelitisShould this be [...] Monahanort Verified Date/Time: 12/20/2019 15:15:25 Reading Location: [facility] Radiology Reading Room XR foot 2 views [id number] 15:15:00Interface, External Ris In - 12/20/2019 3:17 [...] Monahan Verified Date/Time: 12/20/2019 15:15:25 Reading Location: [facility] Radiology Reading Room [facility] CenterXR foot 2 views [id number] 15:15:00Interface, External Ris In - 12/20/2019 3:17 [...] MDReport Verified Date/Time: 12/20/2019 15:15:25 Reading Location: [facility] Radiology [facility] 14[facility]56:00 Test Item Value Reference Range Interpretation Comments AMMONIA (BEAKER) (test code = 348) 33 mol/L 17-80 African History Professor ID - ADMINBlood gas, [id number] 14:41:00 Test Item Value Reference Range Interpretation Comments pH, Arterial (test code 7.33 7.35-7.45 L = 2744-1) pCO2, Arterial (test 58 See_Comment H [Autom ated message] code = 2019-8) The system Appy Couple generated this result transmit merna reference range : 35 - 45 mmHg. The reference range was not used to interpret this result as normal/abnormal . pO2, Arterial (test 109 See_Comment H [Automa merna message] code = 2703-7) The system Appy Couple generated this result transmit merna reference range [...] % Lab Interpretation Abnormal (test code = 24726-0) [facility], [id number] 14:41:00 Test Item Value Reference Range Interpretation [...] code = 1819) 32.0 % Occult blood, [id number] 11:56:00 Test Item Value Reference Range Interpretation Comments Occult blood (test code = 2335-8) Negative Negative Lab Interpretation (test code = Normal 28850-9) [facility]OCC[facility]LOOD, [id number] 11:56:00 Test Item Value Reference Range Interpretation Comments FECAL OCCULT BLOOD (BEAKER) (test Negative Negative code = 618) POCT-GLUCOSE [id number] 11:39:00 Test Item Value Reference Range Interpretation Comments POC-GLUCOSE METER 88 mg/dL 70-110 : TESTED A T [facility] [address] (BEAKER) (test code = [address], 15[address]) [facility] [address]: African History Professor/Techni artemio ID = [id number] for Kai Phelpsda [id number] 11:22:00 Test Item Value Reference Range Interpretation Comments Haptoglobin (test code = <8 14-258 L 4542-7) ZIA (test code = ZIA) African History Professor ID - LEONIE Jay Lab Interpretation (test Abnormal code = 45564-1) [facility]HAP[facility]GLOBIN2020-09-21 11:22:00 Test Item Value Reference Range Interpretation Comments HAPTOGLOBIN (BEAKER) (test code = < mg/dL 14-258 L 366) African History Professor ID - LEONIE FT4, [id number] 11:01:00 Test Item Value Reference Range Interpretation Comments Free T4 (test code = 0.52 ng/dL 0.9-1.8 L 3024-7) ZIA (test code = ZIA) African History Professor ID - ADMIN Lab Interpretation (test Abnormal code = 83340-8) [facility] HospitalT4, [id number] 11:01:00 Test Item Value Reference Range Interpretation Comments FREE T4 (BEAKER) (test code = 655) 0.52 ng/dL 0.90-1.80 L African History Professor ID - ADMINPeripheral Blood Smear - Path [id number] 08:19:00 Test Item Value Reference Range Interpretation [...] Griffith M.D. code = 2849) (electronic signature) [facility]PER[facility] - PATHOLOGIST REVIEW 2019-12-20 08:19:00 Test Item Value Reference Range Interpretation Comments RBC MORPHOLOGY Target Cells (BEAKER) (test code = 2846) RBC MORPHOLOGY Basophilic Stippling (BEAKER) (test code = 22756) RBC MORPHOLOGY Nucleated Red Blood Cells (BEAKER) (test code = 44728) PERIPHERAL SMR Normochromic normocytic REVIEW (BEAKER) anemia with a few target (test code = 2640) cells, nucleated RBCs and basophilic stippling. No increase in schistocytes. WBCs normal in number and morphology. Thrombocytopenia with normal platelet morphology. [id number]-[id number]-[id number] Jovita Griffith M.D. 2 (BEAKER) (test (electronic signature) code = 2849) Vitamin B12 and [id number] 06:37:00 Test Item Value Reference Range Interpretation Comments Vitamin B12 (test 1431 pg/mL 211-911 H code = 2132-9) Folate (test code = 17.00 ng/mL See_Comment [Automa merna 2284-8) message] The system which generated this result transmit merna reference range : >=5.4. The reference range was not used to interpret this result as normal/abnormal . ZIA (test code = ZIA) African History Professor ID - ADMIN Lab Interpretation Abnormal (test code = 75472-0) [facility] HospitalVITAMIN B12 AND [id number] 06:37:00 Test Item Value Reference Range Interpretation Comments VITAMIN B12 (BEAKER) (test code = 1431 pg/mL 211-911 H 774) FOLATE (BEAKER) (test code = 362) 17.00 ng/mL >=5.4 African History Professor ID - ADMINPOCT-GLUCOSE [id number] 06:32:00 Test Item Value Reference Range Interpretation Comments POC-GLUCOSE METER 79 mg/dL 70-110 : TESTED A T [address] [address] (BEAKER) (test code = [address], 15[address]) [facility] [place] [address]: African History Professor/Techni artemio ID = [id number] for Anahi Sherman TSH/Free T4 If Sdcnkjyra2550-04-34 06:25:00 Test Item Value Reference Range Interpretation Comments TSH (test code = 21.210 See_Comment H [Automated 23796-8) message] The system which generated this result transmit merna reference range : 0.350 - 5.500 uIU/mL. The reference range was not used to interpret this result as normal/abnormal . ZIA (test code = ZIA) African History Professor ID - ADMIN Lab Interpretation Abnormal (test code = 07591-7) [facility] HospitalFerritin2020-09-[facility] 06:25:00 Test Item Value Reference Range Interpretation Comments Ferritin (test code = 595.00 ng/mL 10-291 H 2276-4) ZIA (test code = ZIA) African History Professor ID - ADMIN Lab Interpretation (test Abnormal code = 81757-3) [facility] HospitalFERRITIN2020-09-21 06:25:00 Test Item Value Reference Range Interpretation Comments FERRITIN (BEAKER) (test code = 595.00 ng/mL 10.00-291.00 H 361) African History Professor ID - ADMINTSH/FREE T4 IF [id number] 06:25:00 Test Item Value Reference Range Interpretation Comments THYROID STIMULATING HORMONE 21.210 uIU/mL 0.350-5.500 H (BEAKER) (test code = 772) African History Professor ID - ADMINPT/[id number] 06:06:00 Test Item Value Reference Interpretation Comments Range Protime (test code = 13.5 See_Comment H [Autom ated 5902-2) message] The system which generated this result transmitted reference range : 9.3 - 12.0 sec. The reference range was not used to interpret this result as normal/abnormal . INR (test code = 1.25 See_Comment [Automated 2891-6) message] The system which generated this result transmitted reference range : <=5.90. The reference range was not used to interpret this result as normal/abnormal . PTT (test code = 38.2 See_Comment H [Automated 30045-6) message] The system which generated this result [...] Output) Lab Interpretation Abnormal (test code = 50905-0) [facility] Test Item Value Reference Range Interpretation Comments Fibrinogen (test code = 340 mg/dL 785-469 9831-7) ZIA (test code = ZIA) Final Information (Auto Output) Lab Interpretation (test Normal code = 71736-3) [facility]2020-09-21 06:06:00 Test Item Value Reference Range Interpretation Comments FIBRINOGEN LEVEL (BEAKER) (test 340 mg/dL 200-400 code = 658) Final Information (Auto Output)PT/[id number] 06:06:00 Test Item Value Reference Range Interpretation [...] = 2502-3) ZIA (test code = ZIA) African History Professor ID - ADMIN Lab Interpretation (test Abnormal code = 42647-8) [facility] HospitalIRON, TIBC, % SAT. (WITHOUT FERRITIN)2019-12-20 05:59:00 Test Item Value Reference Range Interpretation Comments IRON (BEAKER) (test code = 547) 92.0 ug/dL 45.0-170.0 TOTAL IRON BINDING CAPACITY 151 ug/dL 250-550 L (BEAKER) (test code = 769) IRON % SATURATION (2) (BEAKER) 61 % 20-55 H (test code = 2590) African History Professor ID - ADMINCOMPREHENSIVE METABOLIC [id number] 05:55:00 Test Item Value Reference Range Interpretation [...] S NOT APPLICABLE FOR DIALYSIS PATIEN TS. African History Professor ID - QLWSXL-oiqiz3794-06-21 05:46:00 Test Item Value Reference Range Interpretation Comments D-Dimer, Quant (test 1.09 mg/L <0.50 H code = 44590-5) ZIA (test code = ZIA) REGARDING D-DIMER RESULTS: The 98% NPV (Negative Predictive Value) for DVT/PE exclusion is 0.50 mg/L FEU as suggested by the senior fund accountant and as approved by the FDA.Final Information (Auto Output) Lab Interpretation (test Abnormal code = 30256-5) [facility] HospitalD-[id number] 05:46:00 Test Item Value Reference Range Interpretation Comments D-DIMER QUANTITATIVE (BEAKER) (test 1.09 mg/L <0.50 H code = 671) REGARDING D-DIMER RESULTS: The 98% NPV (Negative Predictive Value) for DVT/PE exclusion is 0.50 mg/LFEU as suggested by the senior fund accountant and as approved by the FDA.Final Information (Auto Output)Reticulocyte [id number] 05:42:00 Test Item Value Reference Range Interpretation Comments % Retic (test code = 96491-1) 5.9 % 0.4-2.9 H Lab Interpretation (test code = Abnormal 08867-3) [facility] HospitalRETICULOCYTE [id number] 05:42:00 Test Item Value Reference Range Interpretation Comments RETICULOCYTE COUNT PCT (BEAKER) (test 5.9 % 0.4-2.9 H code = 575) CBC W/PLT COUNT & AUTO [id number] 05:33:00 Test Item Value Reference Range Interpretation [...] U/L 107-206 ZIA (test code = ZIA) African History Professor ID - ADMIN Lab Interpretation (test Normal code = 83840-5) [facility] HospitalLACTATE DEHYDROGENASE (LDH)2019-12-19 21:19:00 Test Item Value Reference Range Interpretation Comments LACTATE DEHYDROGENASE (BEAKER) (test 178 U/L 107-206 code = 635) African History Professor ID - ADMINPOCT-GLUCOSE [id number] 20:47:00 Test Item Value Reference Range Interpretation Comments POC-GLUCOSE METER 102 mg/dL 70-110 : TESTED A T [facility] [address] (BEAKER) (test code [address], = 1538) [place] [id number]: African History Professor/Techni artemio ID = [id number] for Anahi Sherman POCT-GLUCOSE [id number] 16:18:00 Test Item Value Reference Range Interpretation Comments POC-GLUCOSE METER 96 mg/dL 70-110 : TESTED A T [address] (BEAKER) (test code = [address], 15[address]) [place] [address]: African History Professor/Techni artemio ID = [id number] for Nalini Jean Baptiste Basic Metabolic [id number] 06:26:00 Test Item Value Reference Range Interpretation Comments Sodium (test code = 138 meq/L 333-241 7075-2) Potassium (test code = 3.9 meq/L 3.6-5.5 2823-3) Chloride (test code = 99 meq/L 98-106 2075-0) CO2 (test code = 30 meq/L 20-29 H 8-9) BUN (test code = 47 mg/dL 10-26 H 3094-0) Creatinine (test code 3.04 mg/dL 0.5-1.2 H = 2160-0) Glucose (test code = 82 mg/dL 70-110 2345-7) Calcium (test code = 7.9 mg/dL 8.5-10.5 L 06022-7) EGFR (test code = 15 mL/min/1.73 [place] [address]-6) NOT ACCURATE CREATININE CLEARANCE IN PREDICTING GLOMERULAR FILTRATION RATE . ESTIMATED GFR I S NOT APPLICABLE FOR DIALYSIS PATIENTS. ZIA (test code = ZIA) African History Professor ID - ADMIN Lab Interpretation Abnormal (test code = 35830-9) [facility] MET[facility]OL[facility] [id number] 06:26:00 Test Item Value Reference Range Interpretation [...] S NOT APPLICABLE FOR DIALYSIS PATIEN TS. African History Professor ID - ADMINCBC W/PLT COUNT & AUTO [id number] 06:04:00 Test Item Value Reference Range Interpretation [...] PERCENT (BEAKER) (test code = 2801) POCT-GLUCOSE [id number] 05:35:00 Test Item Value Reference Range Interpretation Comments POC-GLUCOSE METER 85 mg/dL 70-110 : Notified RN/MD: [facility] (test code = AT [facility] L [address] [facility] 1538) [facility] [address]: African History Professor/Techni artemio ID = [id number] for Zoina Healy POCT-GLUCOSE [id number] 21:46:00 Test Item Value Reference Range Interpretation Comments POC-GLUCOSE METER 125 mg/dL 70-110 H : Notified RN/MD: TESTED (BEAKER) ([facility] [address]) [facility] [place] [id number]: African History Professor/Techni artemio ID = [id number] for Zonia Healy POCT-GLUCOSE [id number] 16:17:00 Test Item Value Reference Range Interpretation Comments POC-GLUCOSE METER 103 mg/dL 70-110 : TESTED A T [address] (BEAKER) (test code [facility], = 1538) [place] [address]: African History Professor/Techni artemio ID = [id number] for Akhil rs, Shelea POCT-GLUCOSE [id number] 07:56:00 Test Item Value Reference Range Interpretation Comments POC-GLUCOSE METER 111 mg/dL 70-110 H : TESTED A T [address] (BEAKER) (test code [facility], = 1538) [place] [address]: African History Professor/Techni artemio ID = [id number] for Akhil rs, Shelea POCT-GLUCOSE [id number] 06:25:00 Test Item Value Reference Range Interpretation Comments POC-GLUCOSE METER 57 mg/dL 70-110 L : TESTED A T [address] (BEAKER) (test code = [address] [facility], 153) [place] [address]: African History Professor/Techni artemio ID = [id number] for Brow n, Anne POCT-GLUCOSE [id number] 21:55:00 Test Item Value Reference Range Interpretation Comments POC-GLUCOSE METER 76 mg/dL 70-110 : TESTED A T [address] (BEAKER) (test code = [address] [facility], 153) [place] [address]: African History Professor/Techni artemio ID = [id number] for Brow n, Anne POCT-GLUCOSE [id number] 18:03:00 Test Item Value Reference Range Interpretation Comments POC-GLUCOSE METER 81 mg/dL 70-110 : TESTED A T [address] (BEAKER) (test [facility] = [address] [facility] [place] [address]: African History Professor/Techni artemio ID = [id number] for Mare Daniele POCT-GLUCOSE [id number] 12:33:00 Test Item Value Reference Range Interpretation Comments POC-GLUCOSE METER 73 mg/dL 70-110 : TESTED A T [address] (BEAKER) (test code = [address], 1538) [facility] [address]: African History Professor/Techni artemio ID = [id number] for Marisela Bolton Hepatitis B surface [id number] 10:49:00 Test Item Value Reference Range Interpretation Comments Hep B S Ab (test code <8.0 See_Comment [Auto mated = 96292-3) message] The system which generated this result transmit merna reference range : <8.0 mIU/mL. e reference range was not used to interpret this result as normal/abnormal . ZIA (test code = ZIA) African History Professor ID Bijal Jay Lab Interpretation Normal (test code = 86672-6) [facility] HospitalHEPATITIS B SURFACE [id number] 10:49:00 Test Item Value Reference Range Interpretation Comments HEPATITIS B SURFACE ANTIBODY < mIU/mL <8.0 (BEAKER) (test code = 647) African History Professor ID Bijal LEONIE FHepatitis B core antibody, [id number] 10:43:00 Test Item Value Reference Range Interpretation Comments Hep B Core Total Ab Nonreactive Nonreactive (test code = 59294-3) ZIA (test code = ZIA) African History Professor ID Bijal Jay Lab Interpretation (test Normal code = 44061-2) [facility] C [id number] 10:43:00 Test Item Value Reference Range Interpretation Comments Hepatitis C Ab (test Nonreactive Nonreactive code = 63270-2) ZIA (test code = ZIA) African History Professor ID Bijal Jay Lab Interpretation (test Normal code = 32648-4) [facility]HE[facility] [id number] 10:43:00 Test Item Value Reference Range Interpretation Comments HEPATITIS C ANTIBODY (BEAKER) Nonreactive Nonreactive (test code = 367) African History Professor ID - LEONIE FHEPATITIS B CORE ANTIBODY, [id number] 10:43:00 Test Item Value Reference Range Interpretation Comments HEPATITIS B CORE TOTAL ANTIBODY Nonreactive Nonreactive (BEAKER) (test code = 497) African History Professor ID Bijal LEONIE FPOCT-GLUCOSE [id number] 06:31:00 Test Item Value Reference Range Interpretation Comments POC-GLUCOSE METER 67 mg/dL 70-110 L : TESTED A T [address] (BEAKER) (test code = [address], 1538) [facility] [place] [address]: African History Professor/Techni artemio ID = [id number] for Anne Busby COMPREHENSIVE METABOLIC [id number] 05:10:00 Test Item Value Reference Range Interpretation [...] S NOT APPLICABLE FOR DIALYSIS PATIEN TS. African History Professor ID - ADMINCBC W/PLT COUNT & AUTO [id number] 04:36:00 Test Item Value Reference Range Interpretation [...] PERCENT (BEAKER) (test code = 2801) POCT-GLUCOSE [id number] 21:14:00 Test Item Value Reference Range Interpretation Comments POC-GLUCOSE METER 79 mg/dL 70-110 : TESTED A T [address] (BEAKER) (test code = [address], 1538) [facility] [address]: African History Professor/Techni artemio ID = [id number] for Anne Busby POCT-GLUCOSE [id number] 18:35:00 Test Item Value Reference Range Interpretation Comments POC-GLUCOSE METER 68 mg/dL 70-110 L : Notified RN/MD: TESTED (ROBERT) (test code = AT [address], [facility] [address]: African History Professor/Techni artemio ID = [id number] for Alondra Kelley SARS-COV2/RT-PCR ([facility])2019-12-16 17:53:00 Test Item Value Reference Range Interpretation Comments SARS-COV2/RT-PCR (test Negative Not Detected, Negative, code = 1950230) See external report for linked test SARS-COV-2 PERFORMING LAB [facility] (test code = 9872837) Negative result for this test determines that [...] 564(g) of the Act.Fact Sheet for Healthcare Providers:https://www.[employer]ano[employer]/sites/default/files/product/documents/Fact_Shee o_LU_Pgcsjvxkh_Rszl_GRYG-YqW-6.pdfFact Sheet for Healthcare Patients:https://www.[employer]/sites/default/files/product/ documents/Ukuu_Kizer_Zjlazhwh_Rhvo_DZRO-TgO-4.pdfPerforming Laboratory:[facility], [place] [address]Cmpvfotdu B surface [id number] 16:57:00 Test Item Value Reference Range Interpretation Comments HBsAg Screen (test code = Nonreactive Nonreactive 5195-3) ZIA (test code = ZIA) African History Professor ID - ADMIN Lab Interpretation (test Normal code = 93446-5) [facility]AT[facility] SURFACE [id number] 16:57:00 Test Item Value Reference Range Interpretation Comments HEPATITIS B SURFACE ANTIGEN (2) Nonreactive Nonreactive (BEAKER) (test code = 2585) African History Professor ID - ADMINANG, TUNNELED CATHETER [id number] 15:06:00Reason for Central Line/PICC?->Need for hemodialysis accessReason [...] the patient's medical record by the nurse. Senior Maintenance Technician: Soto Arias M.D. Galvanizing Pot Runner: none. Approach: Right internal jugular vein Estimated [...] needle into the right atrium. A 4 Turkish micropuncture sheath was placed and a 0.035 wire was advanced into the IVC. A subcutaneous tunnel was created in the left anterior chest wall by blunt dissection. A 23 cm tip to cuff 15.5 Turkish Duraflow 2 catheter was brought through the [...] Arias MDReport Verified Date/Time: 12/16/2019 15:06:45Reading Location: [facility] Radiology Reading Room IR Tunneled Catheter [id number] 15:06:00 Interface, External Ris In - 12/16/2019 [...] the patient's medical record by the nurse. Senior Maintenance Technician: Soto Arias M.D. Ass istant: none. Approach: [...] A 23 cm tip to cuff 15.5 Turkish Duraflow 2 catheter was brought through the [...] MDReport Verified Date/Time: 12/16/2019 15:06:45 Reading Location: [facility] Radiology [facility] [id number] 14:59:00 Test Item Value Reference Range Interpretation Comments POC-GLUCOSE METER 70 mg/dL 70-110 : Notified RN/MD: TESTED (BEAKER) (test code = AT [facility] L [address]) [facility] [address]: African History Professor/Techni artemio ID = [id number] for Alondra Kelley POCT-GLUCOSE [id number] 11:13:00 Test Item Value Reference Range Interpretation Comments POC-GLUCOSE METER 72 mg/dL 70-110 : Notified RN/MD: TESTED (BEAKER) (test code = AT [facility] L [address]) [facility] [address]: African History Professor/Techni artemio ID = [id number] for Alondra Kelley RAD, CHEST, 1 VIEW, NON [id number] 09:20:00Reason for exam:->fallShould this be performed at [...] Ariaseport Verified Date/Time: 12/16/2019 09:20:06 Reading Location: [facility] Radiology Reading Room XR chest 1 view portable / [id number] 09:20:00Interface, External Ris In - 12/16/2019 9:22 [...] [place] Verified Date/Time: 12/16/2019 09:20:06 Reading Location: [facility] Radiology Reading Room Electronically yeimi d by: SOTO ARIAS MD on 12/16/2019 09:20 [facility] POCT-GLUCOSE [id number] 06:03:00 Test Item Value Reference Range Interpretation Comments POC-GLUCOSE METER 74 mg/dL 70-110 : Notified RN/MD: TESTED (BEAKER) (test code = AT [facility] [address]) [facility] [address]: African History Professor/Techni artemio ID = [id number] for Zonia Healy BASIC METABOLIC [id number] 05:08:00 Test Item Value Reference Range Interpretation [...] S NOT APPLICABLE FOR DIALYSIS PATIEN TS. African History Professor ID - ADMINProthrombin time/[id number] 05:01:00 Test Item Value Reference Interpretation Comments Range Protime (test code = 14.1 See_Comment H [Autom ated 6042-2) message] The system which generated this result transmitted reference range : 9.3 - 12.0 sec. The reference range was not used to interpret this result as normal/abnormal . INR (test code = 1.31 See_Comment [Automated 7770-6) message] The system which generated this result [...] Output) Lab Interpretation Abnormal (test code = 05151-9) [facility] HospitalPROTHROMBIN TIME/[id number] 05:01:00 Test Item Value Reference Range Interpretation [...] Information (Auto Output)CBC W/PLT COUNT & AUTO [id number] 04:46:00 Test Item Value Reference Range Interpretation [...] PERCENT (BEAKER) (test code = 2801) POCT-GLUCOSE [id number] 17:13:00 Test Item Value Reference Range Interpretation Comments POC-GLUCOSE METER 220 mg/dL 70-110 H TESTED AT [place] [address] ([facility]) (test code = [facility] [place] 1538) [address] BASIC METABOLIC [id number] 15:47:00 Test Item Value Reference Range Interpretation [...] NOT APPLICABLE FOR DIALYSIS PATIEN TS. POCT-GLUCOSE [id number] 11:30:00 Test Item Value Reference Range Interpretation Comments POC-GLUCOSE METER 268 mg/dL 70-110 H TESTED AT [facility] 6720 (BEAKER) (test code = [facility] [place] 1538) [address] POCT-GLUCOSE [id number] 07:08:00 Test Item Value Reference Range Interpretation Comments POC-GLUCOSE METER 208 mg/dL 70-110 H TESTED AT [facility] 6720 (BEAKER) (test code = [place] 1538) [address] CALCIUM, [id number] 06:47:00 Test Item Value Reference Range Interpretation Comments CALCIUM IONIZED (BEAKER) (test 1.11 mmol/L 1.12-1.27 L code = 698) PH, BLOOD (BEAKER) (test code = 7.40 1810) BASIC METABOLIC [id number] 06:40:00 Test Item Value Reference Range Interpretation [...] S NOT APPLICABLE FOR DIALYSIS PATIEN TS. [id number] 06:33:00 Test Item Value Reference Range Interpretation Comments PHOSPHORUS (BEAKER) (test code = 5.1 mg/dL 2.3-4.7 H 604) [id number] 06:33:00 Test Item Value Reference Range Interpretation Comments MAGNESIUM (BEAKER) (test code = 2.0 mg/dL 1.6-2.6 627) LACTIC ACID, VENOUS, WHOLE [id number] 06:02:00 Test Item Value Reference Range Interpretation Comments LACTATE BLOOD VENOUS (2) (BEAKER) 0.8 mmol/L 0.5-2.2 (test code = 2872) Effective 08/02/2015: Units/Reference Range ChangeNew: 0.5-2.2 mmol/L Previous: 5-20 mg/dLCBC W/PLT COUNT & AUTO [id number] 05:54:00 Test Item Value Reference Range Interpretation [...] 417) IMMATURE GRANULOCYTES-RELATIVE 0 % 0-1 PERCENT (SERVANDOAKER) (test code = 2801) POCT-GLUCOSE [id number] 21:30:00 Test Item Value Reference Range Interpretation Comments POC-GLUCOSE METER 248 mg/dL 70-110 H TESTED AT [place] [address] ([facility]) (test code = [facility] 1538) [address] RAD, [id number] 21:22:00Reason for exam:->fall, tailbone painFINAL REPORT RAD, [...] MDReport Verified Date/Time: 09/04/2017 21:22:03 Reading Location: [address] Reading Room POCT-GLUCOSE [id number] 17:37:00 Test Item Value Reference Range Interpretation Comments POC-GLUCOSE METER 222 mg/dL 70-110 H TESTED AT [facility] 6720 ([facility]) (test code = JULIANO [facility] 1538) [address] POCT-GLUCOSE [id number] 13:55:00 Test Item Value Reference Range Interpretation Comments POC-GLUCOSE METER 194 mg/dL 70-110 H TESTED AT [facility] 67 ([facility]) (test code = JULIANO [facility] 1538) [address] POCT-GLUCOSE [id number] 12:34:00 Test Item Value Reference Range Interpretation Comments POC-GLUCOSE METER 229 mg/dL 70-110 H TESTED AT [facility] 6720 (BEAKER) (test code = JULIANO [place] 1538) [address] POCT-GLUCOSE [id number] 08:00:00 Test Item Value Reference Range Interpretation Comments POC-GLUCOSE METER 159 mg/dL 70-110 H TESTED AT [facility] 6720 (BEAKER) (test code = JULIANO [place] 1538) [address] CALCIUM, [id number] 06:00:00 Test Item Value Reference Range Interpretation Comments CALCIUM IONIZED (BEAKER) (test 1.05 mmol/L 1.12-1.27 L code = 698) PH, BLOOD (BEAKER) (test code = 7.45 1810) [id number] 05:59:00 Test Item Value Reference Range Interpretation Comments PHOSPHORUS (BEAKER) (test code = 4.8 mg/dL 2.3-4.7 H 604) [id number] 05:59:00 Test Item Value Reference Range Interpretation Comments MAGNESIUM (BEAKER) (test code = 2.0 mg/dL 1.6-2.6 627) BASIC METABOLIC [id number] 05:59:00 Test Item Value Reference Range Interpretation [...] = 380) CBC W/PLT COUNT & AUTO [id number] 05:32:00 Test Item Value Reference Range Interpretation [...] PERCENT (BEAKER) (test code = 2801) POCT-GLUCOSE [id number] 20:36:00 Test Item Value Reference Range Interpretation Comments POC-GLUCOSE METER 211 mg/dL 70-110 H TESTED AT [place] [address] ([facility]) (test code = [facility] [place] [facility] 1538) [address] CREATININE, RANDOM [id number] 19:55:00 Test Item Value Reference Range Interpretation Comments CREATININE URINE (BEAKER) (test 16.1 mg/dL code = 375) Reference Range: No NormalsPROTEIN, RANDOM [id number] 19:55:00 Test Item Value Reference Range Interpretation Comments PROTEIN, URINE (BEAKER) (test code 102 mg/dL 0-14 H = 1569) POCT-GLUCOSE [id number] 18:04:00 Test Item Value Reference Range Interpretation Comments POC-GLUCOSE METER 177 mg/dL 70-110 H TESTED AT [place] [address] ([facility]) (test code = [facility] [place] [facility] 1538) [address] POCT-GLUCOSE [id number] 11:59:00 Test Item Value Reference Range Interpretation Comments POC-GLUCOSE METER 244 mg/dL 70-110 H TESTED AT [place] [address] ([facility]) (test code = [facility] 1538) [address] POCT-GLUCOSE [id number] 07:53:00 Test Item Value Reference Range Interpretation Comments POC-GLUCOSE METER 160 mg/dL 70-110 H TESTED AT [place] [address] ([facility]) (test code = [facility] 1538) [address] BASIC METABOLIC [id number] 05:29:00 Test Item Value Reference Range Interpretation [...] S NOT APPLICABLE FOR DIALYSIS PATIEN TS. [id number] 05:21:00 Test Item Value Reference Range Interpretation Comments MAGNESIUM (BEAKER) (test code = 2.1 mg/dL 1.6-2.6 627) HEPATIC FUNCTION [id number] 05:21:00 Test Item Value Reference Range Interpretation [...] code = 23 U/L 6-55 347) TROPONIN [id number] 05:18:00 Test Item Value Reference Range Interpretation [...] EOSINOPHILS ABSOLUTE COUNT 0.36 K/ L 0.04-0.36 (ROBRET) (test code = 416) BASOPHILS ABSOLUTE COUNT (SERVANDOAKER) 0.06 K/ L 0.01-0.08 (test code = 417) IMMATURE GRANULOCYTES-RELATIVE 0 % 0-1 PERCENT (ROBERT) (test code = 2801) TROPONIN [id number] 23:40:00 Test Item Value Reference Range Interpretation [...] acidosis, acute neurological disease, and persistent tachyarrhythmia.POCT-GLUCOSE [id number] 22:51:00 Test Item Value Reference Range Interpretation Comments POC-GLUCOSE METER 214 mg/dL 70-110 H TESTED AT [facility] 6720 (ROBERT) (test code = JULIANO [place] 1538) [address] RAD, CHEST, 1 VIEW, NON [id number] 21:42:00Reason for exam:->CHEST PAINShould this be performed at the bedside?->YesFINAL REPORT RAD, CHEST, 1 VIEW, NON DEPT INDICATION: CHEST PAIN COMPARISON: Chest x-ray 4 weeks ago TECHNIQUE: Single frontal view of the chest. IMPRESSION:Cardiomegaly.Mild pulmonary interstitial edema with a small right- sided effusion.No acute osseous abnormality. Signed: Dario Abraham MDReport Verified Date/Time: 09/02/2017 21:42:11 Reading Location: [address] onsd Reading Room CREATININE, RANDOM [id number] 21:10:00 Test Item Value Reference Range Interpretation Comments CREATININE URINE (ROBERT) (test 35.5 mg/dL code = 375) Reference Range: No NormalsSODIUM, RANDOM [id number] 21:10:00 Test Item Value Reference Range Interpretation Comments SODIUM URINE (BEAKER) (test code = 80 meq/L 243) Reference Range: No NormalsURINALYSIS W/ [id number] 20:59:00 Test Item Value Reference Range Interpretation [...] code = 514) SOURCE(BEAKER) (test code = 4201) BASIC METABOLIC [id number] 16:49:00 Test Item Value Reference Range Interpretation [...] S NOT APPLICABLE FOR DIALYSIS PATIEN TS. [id number] 16:38:00 Test Item Value Reference Range Interpretation [...] (BEAKER) (test code = 700) BASIC METABOLIC [id number] 13:43:00 Test Item Value Reference Range Interpretation [...] NOT APPLICABLE FOR DIALYSIS PATIEN TS. POCT-GLUCOSE [id number] 12:44:00 Test Item Value Reference Range Interpretation Comments POC-GLUCOSE METER 283 mg/dL 70-110 H TESTED AT [facility] 6720 (BEAKER) (test code = JULIANO [place] 1538) [address] CALCIUM, [id number] 07:03:00 Test Item Value Reference Range Interpretation Comments CALCIUM IONIZED (BEAKER) (test 1.02 mmol/L 1.12-1.27 L code = 698) PH, BLOOD (BEAKER) (test code = 7.43 1810) [id number] 05:28:00 Test Item Value Reference Range Interpretation Comments PHOSPHORUS (BEAKER) (test code = 3.3 mg/dL 2.3-4.7 604) [id number] 05:28:00 Test Item Value Reference Range Interpretation Comments MAGNESIUM (BEAKER) (test code = 1.5 mg/dL 1.6-2.6 L 627) BASIC METABOLIC [id number] 05:28:00 Test Item Value Reference Range Interpretation [...] PATIEN TS. CBC W/PLT COUNT & AUTO [id number] 05:06:00 Test Item Value Reference Range Interpretation [...] PERCENT (BEAKER) (test code = 2801) POCT-GLUCOSE [id number] 21:08:00 Test Item Value Reference Range Interpretation Comments POC-GLUCOSE METER 202 mg/dL 70-110 H TESTED AT [facility] 67 ([facility]) (test code = JULIANO [place] 1538) [address] POCT-GLUCOSE [id number] 16:50:00 Test Item Value Reference Range Interpretation Comments POC-GLUCOSE METER 287 mg/dL 70-110 H TESTED AT [place] [address] ([facility]) (test code = JULIANO [place] 1538) [address] POCT-GLUCOSE [id number] 12:21:00 Test Item Value Reference Range Interpretation Comments POC-GLUCOSE METER 213 mg/dL 70-110 H TESTED AT [place] [address] ([facility]) (test code = JULIANO [place] 1538) [address] POCT-GLUCOSE [id number] 08:28:00 Test Item Value Reference Range Interpretation Comments POC-GLUCOSE METER 178 mg/dL 70-110 H TESTED AT [place] [address] ([facility]) (test code = JULIANO [place] 1538) [address] CALCIUM, [id number] 07:06:00 Test Item Value Reference Range Interpretation Comments CALCIUM IONIZED (BEAKER) (test 0.99 mmol/L 1.12-1.27 L code = 698) PH, BLOOD (BEAKER) (test code = 7.42 1810) [id number] 05:37:00 Test Item Value Reference Range Interpretation Comments PHOSPHORUS (BEAKER) (test code = 3.5 mg/dL 2.3-4.7 604) [id number] 05:37:00 Test Item Value Reference Range Interpretation Comments MAGNESIUM (BEAKER) (test code = 1.6 mg/dL 1.6-2.6 627) BASIC METABOLIC [id number] 05:37:00 Test Item Value Reference Range Interpretation [...] PATIEN TS. CBC W/PLT COUNT & AUTO [id number] 05:07:00 Test Item Value Reference Range Interpretation [...] PERCENT (BEAKER) (test code = 2801) POCT-GLUCOSE [id number] 21:24:00 Test Item Value Reference Range Interpretation Comments POC-GLUCOSE METER 255 mg/dL 70-110 H TESTED AT [place] [address] (BEAKER) (test code = JULIANO [facility] 1538) [address] POCT-GLUCOSE [id number] 17:11:00 Test Item Value Reference Range Interpretation Comments POC-GLUCOSE METER 244 mg/dL 70-110 H TESTED AT [place] [address] (BEAKER) (test code = JULIANO Osborne [place] 1538) [address] POCT-GLUCOSE [id number] 11:54:00 Test Item Value Reference Range Interpretation Comments POC-GLUCOSE METER 209 mg/dL 70-110 H TESTED AT [place] [address] (BEAKER) (test code = JULIANO [facility] 1538) [address] POCT-GLUCOSE [id number] 08:15:00 Test Item Value Reference Range Interpretation Comments POC-GLUCOSE METER 132 mg/dL 70-110 H TESTED AT [facility] 6720 (BEAKER) (test code = JULIANO [place] 1538) [address] RAD, CHEST, 1 VIEW, NON [id number] 07:44:00Reason for exam:->edemaShould this be performed at the bedside?->YesFINAL REPORT Chest one view AP 08/07/2017 7:44 AM CLINICAL INDICATION: edema COMPARISON: 05/31/2017 IMPRESSION: Cardiomediastinal contours are stable. There is mild pulmonary edema,asymmetric to the right. There are trace bilateral pleural effusions, with bibasilar linear atelectasis. Sternotomy wires remain midline. Signed: Regan Cespedes Verified Date/Time: 08/07/2017 07:44:22 Reading Location: [facility] Radiology Reading Room [id number] 05:30:00 Test Item Value Reference Range Interpretation Comments FERRITIN (BEAKER) (test code = 361) 87 ng/mL 5-275 CBC W/PLT COUNT & AUTO [id number] 05:21:00 Test Item Value Reference Range Interpretation [...] % 20-55 L (test code = 2590) [id number] 05:11:00 Test Item Value Reference Range Interpretation Comments PHOSPHORUS (BEAKER) (test code = 3.6 mg/dL 2.3-4.7 604) [id number] 05:11:00 Test Item Value Reference Range Interpretation Comments MAGNESIUM (BEAKER) (test code = 2.0 mg/dL 1.6-2.6 627) BASIC METABOLIC [id number] 05:11:00 Test Item Value Reference Range Interpretation [...] H (BEAKER) (test code = 700) CALCIUM, [id number] 04:58:00 Test Item Value Reference Range Interpretation Comments CALCIUM IONIZED (BEAKER) (test 1.04 mmol/L 1.12-1.27 L code = 698) PH, BLOOD (BEAKER) (test code = 7.41 1810) RETICULOCYTE [id number] 04:51:00 Test Item Value Reference Range Interpretation Comments RETICULOCYTE COUNT PCT (BEAKER) (test 1.2 % 0.5-1.7 code = 575) POCT-GLUCOSE [id number] 20:49:00 Test Item Value Reference Range Interpretation Comments POC-GLUCOSE METER 202 mg/dL 70-110 H TESTED AT [facility] 6720 (BEAKER) (test code = MATTHIASAMANDA [place]YE[place] 1538) [address] CREATININE, RANDOM [id number] 18:38:00 Test Item Value Reference Range Interpretation Comments CREATININE URINE (BEAKER) (test 56.3 mg/dL code = 375) Reference Range: No NormalsPROTEIN, RANDOM [id number] 18:38:00 Test Item Value Reference Range Interpretation Comments PROTEIN, URINE (BEAKER) (test code 189 mg/dL 0-14 H = 1569) URINALYSIS W/ [id number] 18:34:00 Test Item Value Reference Range Interpretation [...] 516) SOURCE(BEAKER) (test code = Urine, Voided 4614) POCT-GLUCOSE [id number] 17:38:00 Test Item Value Reference Range Interpretation Comments POC-GLUCOSE METER 143 mg/dL 70-110 H TESTED AT [facility] 6720 (BEAKER) (test code = JULIANO [place] 1538) [address] POCT-GLUCOSE [id number] 12:30:00 Test Item Value Reference Range Interpretation Comments POC-GLUCOSE METER 218 mg/dL 70-110 H TESTED AT [facility] 6720 (BEAKER) (test code = JULIANO [place] 1538) [address] POCT-GLUCOSE [id number] 08:00:00 Test Item Value Reference Range Interpretation Comments POC-GLUCOSE METER 134 mg/dL 70-110 H TESTED AT [facility] 6720 (BEAKER) (test code = JULIANO [place] 1530) [address] CBC W/PLT COUNT & AUTO [id number] 04:23:00 Test Item Value Reference Range Interpretation [...] (BEAKER) (test code = 2801) BASIC METABOLIC [id number] 04:13:00 Test Item Value Reference Range Interpretation [...] S NOT APPLICABLE FOR DIALYSIS PATIEN TS. [id number] 04:10:00 Test Item Value Reference Range Interpretation Comments PHOSPHORUS (BEAKER) (test code = 4.9 mg/dL 2.3-4.7 H 604) [id number] 04:10:00 Test Item Value Reference Range Interpretation Comments MAGNESIUM (BEAKER) (test code = 1.4 mg/dL 1.6-2.6 L 627) [id number] 04:08:00 Test Item Value Reference Range Interpretation Comments FIBRINOGEN LEVEL (BEAKER) (test 548 mg/dl 225-434 H code = 658) [id number] 04:08:00 Test Item Value Reference Range Interpretation Comments PARTIAL THROMBOPLASTIN TIME 37.7 seconds 22.5-36.0 H (BEAKER) (test code = 760) PROTHROMBIN [id number] 04:07:00 Test Item Value Reference Range Interpretation Comments PROTIME (BEAKER) (test code = 16.2 seconds 11.7-14.7 H 759) INR (BEAKER) (test code = 370) 1.3 <=5.9 RECOMMENDED COUMADIN/WARFARIN INR THERAPY RANGESSTANDARD DOSE: 2.0 - 3.0 Includes: PROPHYLAXIS forvenous thrombosis, systemic embolization; TREATMENT for venous thrombosis and/or pulmonary embolus.HIGH RISK: Target INR is 2.5-3.5 for patients with mechanical heart valves.[id number] 16:59:00 Test Item Value Reference Range Interpretation Comments ACTIVATED CLOTTING TIME 219 sec TEST ED AT [place] [address] ([facility]) (test code = JULIANO [place] 441) [address] BASIC METABOLIC [id number] 14:25:00 Test Item Value Reference Range Interpretation [...] NOT APPLICABLE FOR DIALYSIS PATIEN TS. POCT-GLUCOSE [id number] 13:21:00 Test Item Value Reference Range Interpretation Comments POC-GLUCOSE METER 170 mg/dL 70-110 H TESTED AT [place] [address] ([facility]) (test code = JULIANO [place] 1538) [address] POTASSIUM-STAT [id number] 13:20:00 Test Item Value Reference Range Interpretation Comments POTASSIUM (BEAKER) (test code = 4.2 meq/L 3.6-5.5 379) SODIUM NA-STAT [id number] 13:20:00 Test Item Value Reference Range Interpretation Comments SODIUM (BEAKER) (test code = 381) 133 meq/L 135-148 L HGB/HCT (H&H) - STAT [id number] 12:34:00 Test Item Value Reference Range Interpretation Comments HEMOGLOBIN (BEAKER) (test code = 10.8 g/dL 12.0-15.0 L 410) HEMATOCRIT (BEAKER) (test code = 32.0 % 36.0-45.0 L 411) POTASSIUM-STAT [id number] 08:15:00 Test Item Value Reference Range Interpretation Comments POTASSIUM (BEAKER) (test code = 4.1 meq/L 3.6-5.5 379) BLOOD GAS, [id number] 08:15:00 Test Item Value Reference Range Interpretation [...] code = 1819) 70.0 % SODIUM NA-STAT [id number] 08:15:00 Test Item Value Reference Range Interpretation Comments SODIUM (BEAKER) (test code = 381) 130 meq/L 135-148 L GLUCOSE-STAT [id number] 08:15:00 Test Item Value Reference Range Interpretation Comments GLUCOSE RANDOM (BEAKER) (test code 172 mg/dL 70-110 H = 652) HGB/HCT (H&H) - STAT [id number] 08:15:00 Test Item Value Reference Range Interpretation Comments HEMOGLOBIN (BEAKER) (test code = 8.8 g/dL 12.0-15.0 L 410) HEMATOCRIT (BEAKER) (test code = 26.0 % 36.0-45.0 L 411) BASIC METABOLIC [id number] 07:37:00 Test Item Value Reference Range Interpretation [...] PATIEN TS. CBC W/PLT COUNT & AUTO [id number] 07:20:00 Test Item Value Reference Range Interpretation [...] PERCENT (BEAKER) (test code = 2801) POCT-GLUCOSE [id number] 07:03:00 Test Item Value Reference Range Interpretation Comments POC-GLUCOSE METER 186 mg/dL 70-110 H TESTED AT [facility] 6720 (BEAKER) (test code = JULIANO Osborne [place] 1538) [address] B-TYPE NATRIURETIC FACTOR (BNP)2017-06-10 12:44:00 Test Item Value Reference Range Interpretation Comments B-TYPE NATRIURETIC PEPTIDE 1264 pg/mL 0-100 H (BEAKER) (test code = 700) [id number] 12:36:00 Test Item Value Reference Range Interpretation Comments MAGNESIUM (BEAKER) (test code = 1.6 mg/dL 1.6-2.6 627) BASIC METABOLIC [id number] 12:36:00 Test Item Value Reference Range Interpretation [...] NOT APPLICABLE FOR DIALYSIS PATIEN TS. POCT-GLUCOSE [id number] 12:04:00 Test Item Value Reference Range Interpretation Comments POC-GLUCOSE METER 274 mg/dL 70-110 H TESTED AT [facility] 6720 ([facility]) (test code = [facility] 1538) [address] POCT-GLUCOSE [id number] 07:21:00 Test Item Value Reference Range Interpretation Comments POC-GLUCOSE METER 137 mg/dL 70-110 H TESTED AT [facility] 6720 ([facility]) (test code = [facility] 1538) [address] BASIC METABOLIC [id number] 05:10:00 Test Item Value Reference Range Interpretation [...] 0-0 (BEAKER) (test code = 413) POCT-GLUCOSE [id number] 21:23:00 Test Item Value Reference Range Interpretation Comments POC-GLUCOSE METER 240 mg/dL 70-110 H TESTED AT [facility] 6720 (BEAKER) (test code = JULIANO [place] 1538) [address] POCT-GLUCOSE [id number] 16:42:00 Test Item Value Reference Range Interpretation Comments POC-GLUCOSE METER 234 mg/dL 70-110 H TESTED AT [facility] 6720 ([facility]) (test code = JULIANO Osborne [place] 1538) [address] POCT-GLUCOSE [id number] 13:22:00 Test Item Value Reference Range Interpretation Comments POC-GLUCOSE METER 166 mg/dL 70-110 H TESTED AT [facility] 6720 ([facility]) (test code = JULIANO Osborne [place] 1538) [address] RAD, CHEST, 1 VIEW, NON [id number] 09:43:00Reason for exam:->s/p ACBShould this be performed [...] are present. No pneumothorax. Signed: Lynda Ring MDRepst. lou[facility] Verified Date/Time: 05/31/2017 09:43:30 ReadingLocation: [facility] B1 C013X Ortho Consult Reading Room POCT-GLUCOSE [id number] 06:57:00 Test Item Value Reference Range Interpretation Comments POC-GLUCOSE METER 136 mg/dL 70-110 H TESTED AT [place] [id number] ([facility]) (test code = JULIANO [facility] 1538) [address] CALCIUM, [id number] 06:41:00 Test Item Value Reference Range Interpretation Comments CALCIUM IONIZED (BEAKER) (test 1.10 mmol/L 1.12-1.27 L code = 698) PH, BLOOD (BEAKER) (test code = 7.42 1810) [id number] 06:17:00 Test Item Value Reference Range Interpretation Comments PHOSPHORUS (BEAKER) (test code = 3.3 mg/dL 2.3-4.7 604) [id number] 06:17:00 Test Item Value Reference Range Interpretation Comments MAGNESIUM (BEAKER) (test code = 1.8 mg/dL 1.6-2.6 627) BASIC METABOLIC [id number] 06:17:00 Test Item Value Reference Range Interpretation [...] PATIEN TS. CBC W/PLT COUNT & AUTO [id number] 05:07:00 Test Item Value Reference Range Interpretation [...] PERCENT (BEAKER) (test code = 2801) POCT-GLUCOSE [id number] 20:56:00 Test Item Value Reference Range Interpretation Comments POC-GLUCOSE METER 196 mg/dL 70-110 H TESTED AT [place] [address] ([facility]) (test code = JULIANO [facility] 1538) [address] POCT-GLUCOSE [id number] 16:42:00 Test Item Value Reference Range Interpretation Comments POC-GLUCOSE METER 196 mg/dL 70-110 H TESTED AT [place] [address] ([facility]) (test code = JULIANO [facility] 1538) [address] POCT-GLUCOSE [id number] 11:45:00 Test Item Value Reference Range Interpretation Comments POC-GLUCOSE METER 215 mg/dL 70-110 H TESTED AT [place] [address] ([facility]) (test code = JULIANO [facility] 1538) [address] RAD, CHEST, 1 VIEW, NON [id number] 11:15:00Reason for exam:->s/p ACBShould this be performed at the bedside?->YesFINAL REPORT Chest one view compared to May 28, 2017 Discussion: Airspace opacities are seen in both lower lung regions, probably atelectasis. Correlate clinically for infection. I could not exclude small effusions. No pneumothorax. Upper lungs clear. Signed: Jeannette Nava MDReport Verified Date/Time: 05/30/2017 11:15:07 Reading Location: [facility] Radiology Reading Room CALCIUM, [id number] 09:21:00 Test Item Value Reference Range Interpretation Comments CALCIUM IONIZED (BEAKER) (test 1.11 mmol/L 1.12-1.27 L code = 698) PH, BLOOD (BEAKER) (test code = 7.36 1810) BASIC METABOLIC [id number] 07:37:00 Test Item Value Reference Range Interpretation [...] S NOT APPLICABLE FOR DIALYSIS PATIEN TS. [id number] 07:28:00 Test Item Value Reference Range Interpretation Comments PHOSPHORUS (BEAKER) (test code = 3.8 mg/dL 2.3-4.7 604) [id number] 07:28:00 Test Item Value Reference Range Interpretation Comments MAGNESIUM (BEAKER) (test code = 1.9 mg/dL 1.6-2.6 627) CBC W/PLT COUNT & AUTO [id number] 07:26:00 Test Item Value Reference Range Interpretation [...] EOSINOPHILS ABSOLUTE COUNT 0.20 K/ L 0.04-0.36 ([facility]) (test code = 416) BASOPHILS ABSOLUTE COUNT ([facility]) 0.02 K/ L 0.01-0.08 (test code = 417) IMMATURE GRANULOCYTES-RELATIVE 1 % 0-1 PERCENT ([facility]) (test code = 2801) POCT-GLUCOSE [id number] 07:21:00 Test Item Value Reference Range Interpretation Comments POC-GLUCOSE METER 146 mg/dL 70-110 H TESTED AT [place] [address] ([facility]) (test code = [facility] 1538) [address] POCT-GLUCOSE [id number] 22:02:00 Test Item Value Reference Range Interpretation Comments POC-GLUCOSE METER 201 mg/dL 70-110 H TESTED AT [place] [address] ([facility]) (test code = [facility] 1538) [address] POCT-GLUCOSE [id number] 18:27:00 Test Item Value Reference Range Interpretation Comments POC-GLUCOSE METER 240 mg/dL 70-110 H TESTED AT [place] [address] ([facility]) (test code = [facility] 1538) [address] POCT-GLUCOSE [id number] 12:13:00 Test Item Value Reference Range Interpretation Comments POC-GLUCOSE METER 193 mg/dL 70-110 H TESTED AT [place] [address] ([facility]) (test code = [facility] 1538) [address] POCT-GLUCOSE [id number] 09:02:00 Test Item Value Reference Range Interpretation Comments POC-GLUCOSE METER 132 mg/dL 70-110 H TESTED AT [place] [address] ([facility]) (test code = [facility] 1538) [address] CALCIUM, [id number] 05:42:00 Test Item Value Reference Range Interpretation Comments CALCIUM IONIZED ([facility]) (test 1.12 mmol/L 1.12-1.27 code = 698) PH, BLOOD ([facility]) (test code = 7.34 1810) COMPREHENSIVE METABOLIC [id number] 05:33:00 Test Item Value Reference Range Interpretation Comments TOTAL PROTEIN 5.9 gm/dL 6.0-8.3 L ([facility]) (test code = 770) ALBUMIN ([facility]) 2.7 g/dL 3.5-5.0 L (test code [...] S NOT APPLICABLE FOR DIALYSIS PATIEN TS. [id number] 05:32:00 Test Item Value Reference Range Interpretation Comments PHOSPHORUS (BEAKER) (test code = 3.6 mg/dL 2.3-4.7 604) [id number] 05:32:00 Test Item Value Reference Range Interpretation Comments MAGNESIUM (BEAKER) (test code = 2.2 mg/dL 1.6-2.6 627) CBC W/PLT COUNT & AUTO [id number] 05:01:00 Test Item Value Reference Range Interpretation [...] PERCENT (BEAKER) (test code = 2801) POCT-GLUCOSE [id number] 21:04:00 Test Item Value Reference Range Interpretation Comments POC-GLUCOSE METER 165 mg/dL 70-110 H TESTED AT [facility] 6720 (BEAKER) (test code = [facility] 1538) [address] POCT-GLUCOSE [id number] 17:30:00 Test Item Value Reference Range Interpretation Comments POC-GLUCOSE METER 236 mg/dL 70-110 H TESTED AT [place] [address] ([facility]) (test code = [facility] 1538) [address] RAD, CHEST, 1 VIEW, NON [id number] 13:53:00Reason for exam:->assess for ill-defined opacityShould this [...] congested. Impression: No change. Signed: [facility] Verified Date/Time: 05/28/2017 13:53:03 Reading Location: [address] Radiology Reading Room POCT-GLUCOSE [id number] 11:53:00 Test Item Value Reference Range Interpretation Comments POC-GLUCOSE METER 215 mg/dL 70-110 H TESTED AT [place] [address] ([facility]) (test code = JULIANO Osborne [facility] 1538) [address] POCT-GLUCOSE [id number] 08:32:00 Test Item Value Reference Range Interpretation Comments POC-GLUCOSE METER 168 mg/dL 70-110 H TESTED AT [place] [address] ([facility]) (test code = JULIANO [facility]borne [facility] 1538) [address] CALCIUM, [id number] 05:44:00 Test Item Value Reference Range Interpretation Comments CALCIUM IONIZED ([facility]) (test 1.09 mmol/L 1.12-1.27 L code = 698) PH, BLOOD ([facility]) (test code = 7.38 1810) [id number] 05:44:00 Test Item Value Reference Range Interpretation Comments PHOSPHORUS ([facility]) (test code = 3.5 mg/dL 2.3-4.7 604) [id number] 05:44:00 Test Item Value Reference Range Interpretation Comments MAGNESIUM (BEAKER) (test code = 1.9 mg/dL 1.6-2.6 627) BASIC METABOLIC [id number] 05:44:00 Test Item Value Reference Range Interpretation [...] PATIEN TS. CBC W/PLT COUNT & AUTO [id number] 05:05:00 Test Item Value Reference Range Interpretation [...] PERCENT (BEAKER) (test code = 2801) POCT-GLUCOSE [id number] 21:03:00 Test Item Value Reference Range Interpretation Comments POC-GLUCOSE METER 173 mg/dL 70-110 H TESTED AT [place] [address] ([facility]) (test code = [facility] 1538) [address] [id number] 18:15:00 Test Item Value Reference Range Interpretation Comments ACTIVATED CLOTTING TIME 147 sec TEST ED AT [place] [address] ([facility]) (test code = [facility] 441) [address] [id number] 18:15:00 Test Item Value Reference Range Interpretation Comments ACTIVATED CLOTTING TIME 246 sec TEST ED AT [place] [address] ([facility]) (test code = [facility] 441) [address]882 POCT-GLUCOSE [id number] 12:39:00 Test Item Value Reference Range Interpretation Comments POC-GLUCOSE METER 219 mg/dL 70-110 H TESTED AT [place] [address] ([facility]) (test code = JULIANO [place] 1538) [address] RAD, CHEST, 1 VIEW, NON [id number] 10:11:00Reason for exam:->pl effusionShould this be performed at the bedside?->YesFINAL REPORT Chest one view compared to May 26 Discussion: There is cardiac prominence. Upper lungs are clear. Ill-defined basilar densities are similar probably atelectasis. No gross effusion or pneumothorax with bilateral chest tubes in place. Signed: Jeannette Nava Verified Date/Time: 05/27/2017 10:11:44 Reading Location: [facility] Radiology Reading Room POCT-GLUCOSE METER 2017-05-27 07:05:00 Test Item Value Reference Range Interpretation Comments POC-GLUCOSE METER 167 mg/dL 70-110 H TESTED AT [place] [address] ([facility]) (test code = JULIANO [facility] 1538) [address] CALCIUM, [id number] 06:20:00 Test Item Value Reference Range Interpretation Comments CALCIUM IONIZED (BEAKER) (test 0.98 mmol/L 1.12-1.27 L code = 698) PH, BLOOD (BEAKER) (test code = 7.50 1810) [id number] 04:56:00 Test Item Value Reference Range Interpretation Comments PHOSPHORUS (BEAKER) (test code = 2.6 mg/dL 2.3-4.7 604) [id number] 04:56:00 Test Item Value Reference Range Interpretation Comments MAGNESIUM (BEAKER) (test code = 2.0 mg/dL 1.6-2.6 627) BASIC METABOLIC [id number] 04:56:00 Test Item Value Reference Range Interpretation [...] PATIEN TS. CBC W/PLT COUNT & AUTO [id number] 04:36:00 Test Item Value Reference Range Interpretation [...] PERCENT (BEAKER) (test code = 2801) POCT-GLUCOSE [id number] 21:29:00 Test Item Value Reference Range Interpretation Comments POC-GLUCOSE METER 147 mg/dL 70-110 H TESTED AT [facility] 6720 ([facility]) (test code = MATTHIASAMANDA [facility] 1538) [address] POCT-GLUCOSE [id number] 17:51:00 Test Item Value Reference Range Interpretation Comments POC-GLUCOSE METER 224 mg/dL 70-110 H TESTED AT [facility] 67[address] ([facility]) (test code = JULIANO [facility]borne [facility] 1538) [address]106 POCT-GLUCOSE [id number] 13:53:00 Test Item Value Reference Range Interpretation Comments POC-GLUCOSE METER 182 mg/dL 70-110 H TESTED AT [place] [address] ([facility]) (test code = [facility] [place] [facility] 1538) [address] RAD, CHEST, 1 VIEW, NON [id number] 08:44:00Reason for exam:->pl effusionShould this be performed [...] MDReport Verified Date/Time: 05/26/2017 08:44:25 Reading Location: [address] Radiology Reading Room POCT- GLUCOSE [id number] 07:43:00 Test Item Value Reference Range Interpretation Comments POC-GLUCOSE METER 113 mg/dL 70-110 H TESTED AT [facility] 6720 (BEAKER) (test code = JULIANO Osborne [place] 1538) [address] CALCIUM, [id number] 06:31:00 Test Item Value Reference Range Interpretation Comments CALCIUM IONIZED (BEAKER) (test 1.07 mmol/L 1.12-1.27 L code = 698) PH, BLOOD (BEAKER) (test code = 7.38 1810) [id number] 04:51:00 Test Item Value Reference Range Interpretation Comments PHOSPHORUS (BEAKER) (test code = 3.2 mg/dL 2.3-4.7 604) [id number] 04:51:00 Test Item Value Reference Range Interpretation Comments MAGNESIUM (BEAKER) (test code = 2.1 mg/dL 1.6-2.6 627) BASIC METABOLIC [id number] 04:51:00 Test Item Value Reference Range Interpretation [...] PATIEN TS. CBC W/PLT COUNT & AUTO [id number] 04:27:00 Test Item Value Reference Range Interpretation [...] PERCENT (BEAKER) (test code = 2801) POCT-GLUCOSE [id number] 23:48:00 Test Item Value Reference Range Interpretation Comments POC-GLUCOSE METER 123 mg/dL 70-110 H TESTED AT [facility] 6720 (BEAKER) (test code = JULIANO [facility] 1538) 26997 POCT-GLUCOSE [id number] 16:46:00 Test Item Value Reference Range Interpretation Comments POC-GLUCOSE METER 178 mg/dL 70-110 H TESTED AT [facility] 6720 (BEAKER) (test code = [facility] [place] [facility] 1538) [address] BASIC METABOLIC [id number] 05:53:00 Test Item Value Reference Range Interpretation [...] S NOT APPLICABLE FOR DIALYSIS PATIEN TS. [id number] 05:52:00 Test Item Value Reference Range Interpretation Comments PHOSPHORUS (BEAKER) (test code = 4.2 mg/dL 2.3-4.7 604) [id number] 05:52:00 Test Item Value Reference Range Interpretation Comments MAGNESIUM (BEAKER) (test code = 2.3 mg/dL 1.6-2.6 627) CALCIUM, [id number] 05:27:00 Test Item Value Reference Range Interpretation Comments CALCIUM IONIZED (BEAKER) (test 1.12 mmol/L 1.12-1.27 code = 698) PH, BLOOD (BEAKER) (test code = 7.38 1810) CBC W/PLT COUNT & AUTO [id number] 05:07:00 Test Item Value Reference Range Interpretation [...] = 2801) RAD, CHEST, 1 VIEW, NON [id number] 04:45:00Reason for exam:->pl effusionShould this be performed at the bedside?->YesFINAL REPORT RAD, CHEST, 1 VIEW, NON DEPT INDICATION: pl effusion COMPARISON:Prior day's exam FINDINGS: Portable frontal view of the chest. IMPRESSION: Support Lines: Stable.Lungs and pleura: Unchanged airspace and pleural opacities. No pneumothorax.Heart and mediastinum: Stable contours. Stable surgical changes.Additional findings: None. Signed: JR Boswell Robert MDReport Verified Date/Time: 05/25/2017 04:45:08 Reading Location: [address] Body Reading Room POCT-GLUCOSE [id number] 01:52:00 Test Item Value Reference Range Interpretation Comments POC-GLUCOSE METER 126 mg/dL 70-110 H TESTED AT [facility] 67[address] ([facility]) (test code = JULIANO [place] 1538) [address] POCT-GLUCOSE [id number] 13:07:00 Test Item Value Reference Range Interpretation Comments POC-GLUCOSE METER 118 mg/dL 70-110 H TESTED AT [facility] 6720 ([facility]) (test code = JULIANO [place] 1538) [address] BRONCHIAL CULTURE + GRAM [id number] 11:35:00 Test Item Value Reference Range Interpretation [...] <1+ gram (BEAKER) (test code = positive 197038) cocci in pairs GRAM STAIN RESULT 1+ gram (BEAKER) (test code = variable rods 659661) 1+ Normal respiratory todd presentRAD, CHEST, 1 VIEW, NON [id number] 06:50:00Reason for exam:->pl effusionShould this be performed at the bedside?->YesFINAL REPORT RAD, CHEST, 1 VIEW, NON DEPT INDICATION: pl effusion COMPARISON:Prior day's exam FINDINGS: Portable frontal view of the chest. IMPRESSION: Support Lines: Stable.Lungs and pleura: Unchanged airspace and pleural opacities. No pneumothorax.Heart and mediastinum: Stable contours. Stable surgical changes.Additional findings: None. Signed: JR Boswell Robert [facility] Verified Date/Time: 05/24/2017 06:50:08 Reading Location: [facility] C013Y CT Body Reading Room BASIC METABOLIC [id number] 04:19:00 Test Item Value Reference Range Interpretation [...] NOT APPLICABLE FOR DIALYSIS PATIEN TS. CALCIUM, [id number] 04:16:00 Test Item Value Reference Range Interpretation Comments CALCIUM IONIZED (BEAKER) (test 1.06 mmol/L 1.12-1.27 L code = 698) PH, BLOOD (BEAKER) (test code = 7.40 1810) [id number] 04:11:00 Test Item Value Reference Range Interpretation Comments PHOSPHORUS (BEAKER) (test code = 6.0 mg/dL 2.3-4.7 H 604) [id number] 04:11:00 Test Item Value Reference Range Interpretation Comments MAGNESIUM (BEAKER) (test code = 2.4 mg/dL 1.6-2.6 627) CBC W/PLT COUNT & AUTO [id number] 03:50:00 Test Item Value Reference Range Interpretation [...] PERCENT (BEAKER) (test code = 2801) POCT-GLUCOSE [id number] 20:45:00 Test Item Value Reference Range Interpretation Comments POC-GLUCOSE METER 143 mg/dL 70-110 H TESTED AT [facility] 6720 (BEAKER) (test code = JULIANO [place] 1538) [address] POCT-GLUCOSE [id number] 20:45:00 Test Item Value Reference Range Interpretation Comments POC-GLUCOSE METER 145 mg/dL 70-110 H TESTED AT [facility] 6720 (BEAKER) (test code = JULIANO [place] 1538) [address] [id number] 13:37:00 Test Item Value Reference Range Interpretation Comments PREALBUMIN (BEAKER) 10 mg/dL 14-45 L Specimen slightly (test code = 586) hemolyzed OXYGEN SATURATION, [id number] 12:31:00 Test Item Value Reference Range Interpretation Comments O2 SATURATION (MEASURED) (BEAKER) 94.5 % (test code = 1455) [id number] 11:02:00 Test Item Value Reference Range Interpretation Comments PREALBUMIN (BEAKER) (test code = 10 mg/dL 14-45 L 586) RAD, CHEST, 1 VIEW, NON [id number] 05:14:00while patient is intubated or has chest [...] MDReport Verified Date/Time: 05/23/2017 05:14:04 Reading Location: [facility] C013Y CT Body Reading Room BASIC METABOLIC [id number] 03:48:00 Test Item Value Reference Range Interpretation [...] S NOT APPLICABLE FOR DIALYSIS PATIEN TS. [id number] 03:46:00 Test Item Value Reference Range Interpretation Comments MAGNESIUM (BEAKER) 2.4 mg/dL 1.6-2.6 Specimen slightly (test code = 627) hemolyzed [id number] 03:46:00 Test Item Value Reference Range Interpretation Comments PHOSPHORUS (BEAKER) 6.5 mg/dL 2.3-4.7 H Specimen slightly (test code = 604) hemolyzed CBC W/PLT COUNT & AUTO [id number] 03:26:00 Test Item Value Reference Range Interpretation [...] (BEAKER) (test code = 2801) BLOOD GAS, [id number] 03:18:00 Test Item Value Reference Range Interpretation [...] (test code = 1819) 36.0 % CALCIUM, [id number] 16:32:00 Test Item Value Reference Range Interpretation Comments CALCIUM IONIZED (BEAKER) (test 1.11 mmol/L 1.12-1.27 L code = 698) PH, BLOOD (BEAKER) (test code = 7.39 1810) BASIC METABOLIC [id number] 15:43:00 Test Item Value Reference Range Interpretation [...] NOT APPLICABLE FOR DIALYSIS PATIEN TS. POCT-GLUCOSE [id number] 12:53:00 Test Item Value Reference Range Interpretation Comments POC-GLUCOSE METER 118 mg/dL 70-110 H TESTED AT [facility] 6720 (BEAKER) (test code = JULIANO Osborne [place] 1538) [address] BLOOD GAS, [id number] 10:42:00 Test Item Value Reference Range Interpretation [...] (test code = 1819) 40.0 % POCT-GLUCOSE [id number] 06:46:00 Test Item Value Reference Range Interpretation Comments POC-GLUCOSE METER 106 mg/dL 70-110 TESTED AT [facility] 6720 (BEAKER) (test code = JULIANO [place] 1538) [address] RAD, CHEST, 1 VIEW, NON [id number] 05:05:00while patient is intubated or has chest [...] MDReport Verified Date/Time: 05/22/2017 05:05:00 Reading Location: [address] Body ReadingRoom BASIC METABOLIC [id number] 05:00:00 Test Item Value Reference Range Interpretation [...] S NOT APPLICABLE FOR DIALYSIS PATIEN TS. [id number] 04:41:00 Test Item Value Reference Range Interpretation Comments PHOSPHORUS (BEAKER) (test code = 6.4 mg/dL 2.3-4.7 H 604) [id number] 04:41:00 Test Item Value Reference Range Interpretation Comments MAGNESIUM (BEAKER) (test code = 2.6 mg/dL 1.6-2.6 627) CALCIUM, [id number] 04:26:00 Test Item Value Reference Range Interpretation Comments CALCIUM IONIZED (BEAKER) (test 1.09 mmol/L 1.12-1.27 L code = 698) PH, BLOOD (BEAKER) (test code = 7.40 1810) OXYGEN SATURATION, [id number] 04:25:00 Test Item Value Reference Range Interpretation Comments O2 SATURATION (MEASURED) (BEAKER) 77.0 % (test code = 1455) CBC W/PLT COUNT & AUTO [id number] 04:17:00 Test Item Value Reference Range Interpretation [...] code = 2801) LACTIC ACID, ARTERIAL, WHOLE [id number] 00:07:00 Test Item Value Reference Range Interpretation Comments LACTATE BLOOD 1.0 mmol/L 0.5-2.2 Specimen sligh tly ARTERIAL (2) (BEAKER) hemoly zed (test code = 2874) Effective 08/02/2015: Units/Reference Range ChangeNew: 0.5-2.2 mmol/L Previous: 5-20 mg/dLPOCT-GLUCOSE [id number] 23:47:00 Test Item Value Reference Range Interpretation Comments POC-GLUCOSE METER 180 mg/dL 70-110 H TESTED AT [facility] 6720 (BEAKER) (test code = BERTNE R [place] 1538) [address] BLOOD GAS, [id number] 23:46:00 Test Item Value Reference Range Interpretation [...] code = 1819) 100.0 % SODIUM NA-STAT [id number] 23:46:00 Test Item Value Reference Range Interpretation Comments SODIUM (BEAKER) (test code = 381) 134 meq/L 135-148 L GLUCOSE-STAT [id number] 23:46:00 Test Item Value Reference Range Interpretation Comments GLUCOSE RANDOM (BEAKER) (test code 119 mg/dL 70-110 H = 652) HGB/HCT (H&H) - STAT [id number] 23:46:00 Test Item Value Reference Range Interpretation Comments HEMOGLOBIN (BEAKER) (test code = 8.8 g/dL 12.0-15.0 L 410) HEMATOCRIT (BEAKER) (test code = 26.0 % 36.0-45.0 L 411) OXYGEN SATURATION, [id number] 23:45:00 Test Item Value Reference Range Interpretation Comments O2 SATURATION (MEASURED) (BEAKER) 68.1 % (test code = 1455) POTASSIUM-STAT [id number] 23:45:00 Test Item Value Reference Range Interpretation Comments POTASSIUM (BEAKER) (test code = 5.5 meq/L 3.6-5.5 379) POCT-GLUCOSE [id number] 20:58:00 Test Item Value Reference Range Interpretation Comments POC-GLUCOSE METER 133 mg/dL 70-110 H TESTED AT [facility] 6720 (BEAKER) (test code = JULIANO Osborne [place] 1538) [address] POCT-GLUCOSE [id number] 17:58:00 Test Item Value Reference Range Interpretation Comments POC-GLUCOSE METER 210 mg/dL 70-110 H TESTED AT [place] [address] ([facility]) (test code = JULIANO Osborne [facility] 1538) [address] POCT-GLUCOSE [id number] 17:58:00 Test Item Value Reference Range Interpretation Comments POC-GLUCOSE METER 211 mg/dL 70-110 H TESTED AT [place] [address] ([facility]) (test code = [facility] [place] [facility] 1538) [address] POCT-GLUCOSE [id number] 17:58:00 Test Item Value Reference Range Interpretation Comments POC-GLUCOSE METER 232 mg/dL 70-110 H TESTED AT [place] [address] ([facility]) (test code = [facility] [place] [facility] 1538) [address] POCT-GLUCOSE [id number] 17:58:00 Test Item Value Reference Range Interpretation Comments POC-GLUCOSE METER 262 mg/dL 70-110 H TESTED AT [place] [address] ([facility]) (test code = [facility] [place] [facility] 1538) [address] BLOOD GAS, [id number] 17:01:00 Test Item Value Reference Range Interpretation [...] (test code = 1819) 60.0 % POTASSIUM-STAT [id number] 17:00:00 Test Item Value Reference Range Interpretation Comments POTASSIUM (BEAKER) (test code = 4.8 meq/L 3.6-5.5 379) POCT-GLUCOSE [id number] 15:52:00 Test Item Value Reference Range Interpretation Comments POC-GLUCOSE METER 267 mg/dL 70-110 H TESTED AT [facility] 6720 (BEAKER) (test code = JULIANO Osborne [place] 1538) [address] POCT-GLUCOSE [id number] 14:42:00 Test Item Value Reference Range Interpretation Comments POC-GLUCOSE METER 231 mg/dL 70-110 H TESTED AT [facility] 6720 (BEAKER) (test code = JULIANO Osborne [facility] 1538) [address] BODY FLUID CELL COUNT WITH [id number] 14:41:00 Test Item Value Reference Range Interpretation [...] Tube (test code = 2873) BASIC METABOLIC [id number] 14:11:00 Test Item Value Reference Range Interpretation [...] S NOT APPLICABLE FOR DIALYSIS PATIEN TS. [id number] 14:08:00 Test Item Value Reference Range Interpretation Comments PHOSPHORUS (ROBERT) (test code = 7.2 mg/dL 2.3-4.7 H 604) [id number] 14:08:00 Test Item Value Reference Range Interpretation Comments MAGNESIUM (ROBERT) (test code = 2.6 mg/dL 1.6-2.6 627) POCT-GLUCOSE [id number] 12:49:00 Test Item Value Reference Range Interpretation Comments POC-GLUCOSE METER 224 mg/dL 70-110 H TESTED AT [facility] 67 ([facility]) (test code = JULIANO Osborne [facility] 1538) [address] POCT-GLUCOSE [id number] 12:49:00 Test Item Value Reference Range Interpretation Comments POC-GLUCOSE METER 248 mg/dL 70-110 H TESTED AT [place] [address] ([facility]) (test code = [employer] [facility] 1538) [address] RAD, CHEST, 1 VIEW, NON [id number] 12:32:00Reason for exam:->re-intubationShould this be performed at [...] MDReport Verified Date/Time: 05/21/2017 12:32:08 Reading Location: [facility] Radiology Reading Room POTASSIUM-STAT [id number] 12:28:00 Test Item Value Reference Range Interpretation Comments POTASSIUM (BEAKER) (test code = 5.5 meq/L 3.6-5.5 379) BLOOD GAS, [id number] 12:28:00 Test Item Value Reference Range Interpretation [...] code = 1819) 100.0 % BLOOD GAS, [id number] 10:53:00 Test Item Value Reference Range Interpretation [...] 36.0 % RAD, CHEST, 1 VIEW, NON [id number] 08:46:00while patient is intubated or has chest [...] MDReport Verified Date/Time: 05/21/2017 08:46:27 Reading Location: [facility] Radiology Reading Room BLOOD GAS, [id number] 05:41:00 Test Item Value Reference Range Interpretation [...] (BEAKER) (test code = 1819) 40 CALCIUM, [id number] 04:35:00 Test Item Value Reference Range Interpretation Comments CALCIUM IONIZED (BEAKER) (test 1.13 mmol/L 1.12-1.27 code = 698) PH, BLOOD (BEAKER) (test code = 7.32 1810) BLOOD GAS, [id number] 04:28:00 Test Item Value Reference Range Interpretation [...] (BEAKER) (test code = 1819) 40.0 % [id number] 04:20:00 Test Item Value Reference Range Interpretation Comments PHOSPHORUS (BEAKER) (test code = 6.2 mg/dL 2.3-4.7 H 604) [id number] 04:20:00 Test Item Value Reference Range Interpretation Comments MAGNESIUM (BEAKER) (test code = 2.4 mg/dL 1.6-2.6 627) HEPATIC FUNCTION [id number] 04:20:00 Test Item Value Reference Range Interpretation [...] = 11 U/L 6-55 347) BASIC METABOLIC [id number] 04:20:00 Test Item Value Reference Range Interpretation [...] APPLICABLE FOR DIALYSIS PATIEN TS. OXYGEN SATURATION, [id number] 04:18:00 Test Item Value Reference Range Interpretation Comments O2 SATURATION (MEASURED) (BEAKER) 68.0 % (test code = 1455) LACTIC ACID, ARTERIAL, WHOLE [id number] 04:12:00 Test Item Value Reference Range Interpretation Comments LACTATE BLOOD ARTERIAL (2) 1.0 mmol/L 0.5-2.2 (BEAKER) (test code = 2874) Effective 08/02/2015: Units/Reference Range ChangeNew: 0.5-2.2 mmol/L Previous: 5-20 mg/dLCBC W/PLT COUNT & AUTO [id number] 04:00:00 Test Item Value Reference Range Interpretation [...] (BEAKER) (test code = 2801) BLOOD GAS, [id number] 00:06:00 Test Item Value Reference Range Interpretation [...] (BEAKER) (test code = 1819) 40.0 % [id number] 18:55:00 Test Item Value Reference Range Interpretation Comments PHOSPHORUS (BEAKER) (test code = 4.8 mg/dL 2.3-4.7 H 604) [id number] 18:55:00 Test Item Value Reference Range Interpretation Comments MAGNESIUM (BEAKER) (test code = 2.3 mg/dL 1.6-2.6 627) BASIC METABOLIC [id number] 18:55:00 Test Item Value Reference Range Interpretation [...] DIALYSIS PATIEN TS. LACTIC ACID, ARTERIAL, WHOLE [id number] 18:53:00 Test Item Value Reference Range Interpretation Comments LACTATE BLOOD 0.9 mmol/L 0.5-2.2 Specimen sligh tly ARTERIAL (2) (BEAKER) hemoly zed (test code = 2874) Effective 08/02/2015: Units/Reference Range ChangeNew: 0.5-2.2 mmol/L Previous: 5-20 mg/dLRAD, CHEST, 1 VIEW, NON [id number] 18:44:00Reason for exam:- >postop cardiacShould this be [...] MDReport Verified Date/Time: 05/20/2017 18:44:30 Reading Location: [facility] C013W Consult Reading Room Electronically signed by: MIGUEL BHAKTA M.D. on05/20/2017 06:44 PMCBC W/PLT COUNT & AUTO [id number] 18:38:00 Test Item Value Reference Range Interpretation [...] (BEAKER) (test code = 2801) OXYGEN SATURATION, [id number] 18:36:00 Test Item Value Reference Range Interpretation Comments O2 SATURATION (MEASURED) (BEAKER) 72.5 % (test code = 1455) From distal port of IJ central venous catheterSODIUM NA-STAT [id number] 18:30:00 Test Item Value Reference Range Interpretation Comments SODIUM (BEAKER) (test code = 381) 132 meq/L 135-148 L HGB/HCT (H&H) - STAT [id number] 18:30:00 Test Item Value Reference Range Interpretation Comments HEMOGLOBIN (BEAKER) (test code = 9.4 g/dL 12.0-15.0 L 410) HEMATOCRIT (BEAKER) (test code = 28.0 % 36.0-45.0 L 411) GLUCOSE-STAT [id number] 18:30:00 Test Item Value Reference Range Interpretation Comments GLUCOSE RANDOM (BEAKER) (test code 159 mg/dL 70-110 H = 652) BLOOD GAS, [id number] 18:30:00 Test Item Value Reference Range Interpretation [...] (test code = 1819) 60.0 % CALCIUM, [id number] 18:30:00 Test Item Value Reference Range Interpretation Comments CALCIUM IONIZED (BEAKER) (test 0.94 mmol/L 1.12-1.27 L code = 698) PH, BLOOD (BEAKER) (test code = 7.34 1810) POTASSIUM-STAT [id number] 18:28:00 Test Item Value Reference Range Interpretation [...] (test 0.0 % 0.0-5.0 code = 1414) [id number] 17:53:00 Test Item Value Reference Range Interpretation Comments ACTIVATED CLOTTING TIME 103 sec TEST ED AT [facility] 6720 (BEAKER) (test code = JULIANO RUTH [facility]) [address] [id number] 17:53:00 Test Item Value Reference Range Interpretation Comments ACTIVATED CLOTTING TIME 466 sec TEST ED AT [place] [address] ([facility]) (test code = JULIANO RUTH [place] 441) [address] [id number] 17:53:00 Test Item Value Reference Range Interpretation Comments ACTIVATED CLOTTING TIME 543 sec TEST ED AT [place] [address] ([facility]) (test code = [place]O [place] [address]) [address] [id number] 17:53:00 Test Item Value Reference Range Interpretation Comments ACTIVATED CLOTTING TIME 549 sec TEST ED AT [place] [address] ([facility]) (test code = [place]O [place] [address]) [address] [id number] 17:53:00 Test Item Value Reference Range Interpretation Comments ACTIVATED CLOTTING TIME 632 sec TEST ED AT [place] [address] ([facility]) (test code = [place]O [place] [address]) [address] [id number] 17:53:00 Test Item Value Reference Range Interpretation Comments ACTIVATED CLOTTING TIME 494 sec TEST ED AT [place] [address] ([facility]) (test code = [place]O [place] 441) [address] [id number] 17:53:00 Test Item Value Reference Range Interpretation Comments ACTIVATED CLOTTING TIME 587 sec TEST ED AT [place] [address] ([facility]) (test code = [place]O [place] [address]) [address] [id number] 17:53:00 Test Item Value Reference Range Interpretation Comments ACTIVATED CLOTTING TIME 626 sec TEST ED AT [place] [address] ([facility]) (test code = [place]O [place] [address]) [address] [id number] 17:52:00 Test Item Value Reference Range Interpretation Comments ACTIVATED CLOTTING TIME 808 sec TEST ED AT [place] [address] ([facility]) (test code = [place]O [place] [address]) [address] [id number] 16:54:00 Test Item Value Reference Range Interpretation Comments PARTIAL THROMBOPLASTIN TIME 40.2 seconds 22.5-36.0 H ([facility]) (test code = 760) [id number] 16:53:00 Test Item Value Reference Range Interpretation Comments FIBRINOGEN LEVEL ([facility]) (test 306 mg/dl 225-434 code = 658) PROTHROMBIN [id number] 16:50:00 Test Item Value Reference Range Interpretation Comments PROTIME (BEAKER) (test code = 19.6 seconds 11.7-14.7 H 759) INR (BEAKER) (test code = 370) 1.7 <=5.9 RECOMMENDED COUMADIN/WARFARIN INR THERAPY RANGESSTANDARD DOSE: 2.0 - 3.0 Includes: PROPHYLAXIS forvenous thrombosis, systemic embolization; TREATMENT for venous thrombosis and/or pulmonary embolus.HIGH RISK: Target INR is 2.5-3.5 for patients with mechanical heart valves.PLATELET [id number] 16:45:00 Test Item Value Reference Range Interpretation Comments PLATELET COUNT (BEAKER) (test 136 K/CU MM 150-450 L code = 756) POTASSIUM-STAT [id number] 16:15:00 Test Item Value Reference Range Interpretation Comments POTASSIUM (BEAKER) (test code = 4.9 meq/L 3.6-5.5 379) BLOOD GAS, [id number] 16:15:00 Test Item Value Reference Range Interpretation [...] code = 1819) 100.0 % SODIUM NA-STAT [id number] 16:15:00 Test Item Value Reference Range Interpretation Comments SODIUM (BEAKER) (test code = 381) 131 meq/L 135-148 L GLUCOSE-STAT [id number] 16:15:00 Test Item Value Reference Range Interpretation Comments GLUCOSE RANDOM (BEAKER) (test code 198 mg/dL 70-110 H = 652) HGB/HCT (H&H) - STAT [id number] 16:15:00 Test Item Value Reference Range Interpretation Comments HEMOGLOBIN (BEAKER) (test code = 7.5 g/dL 12.0-15.0 L 410) HEMATOCRIT (BEAKER) (test code = 22.0 % 36.0-45.0 L 411) CALCIUM, [id number] 16:14:00 Test Item Value Reference Range Interpretation Comments CALCIUM IONIZED (BEAKER) (test 0.91 mmol/L 1.12-1.27 L code = 698) PH, BLOOD (BEAKER) (test code = 7.39 1810) BLOOD GAS, [id number] 15:39:00 Test Item Value Reference Range Interpretation [...] code = 1819) 70.0 % SODIUM NA-STAT [id number] 15:39:00 Test Item Value Reference Range Interpretation Comments SODIUM (BEAKER) (test code = 381) 131 meq/L 135-148 L GLUCOSE-STAT [id number] 15:39:00 Test Item Value Reference Range Interpretation Comments GLUCOSE RANDOM (BEAKER) (test code 186 mg/dL 70-110 H = 652) HGB/HCT (H&H) - STAT [id number] 15:39:00 Test Item Value Reference Range Interpretation Comments HEMOGLOBIN (BEAKER) (test code = 7.5 g/dL 12.0-15.0 L 410) HEMATOCRIT (BEAKER) (test code = 22.0 % 36.0-45.0 L 411) POTASSIUM-STAT [id number] 15:38:00 Test Item Value Reference Range Interpretation Comments POTASSIUM (BEAKER) (test code = 5.3 meq/L 3.6-5.5 379) BLOOD GAS, [id number] 15:24:00 Test Item Value Reference Range Interpretation [...] code = 1819) 70.0 % SODIUM NA-STAT [id number] 15:24:00 Test Item Value Reference Range Interpretation Comments SODIUM (BEAKER) (test code = 381) 130 meq/L 135-148 L GLUCOSE-STAT [id number] 15:24:00 Test Item Value Reference Range Interpretation Comments GLUCOSE RANDOM (BEAKER) (test code 189 mg/dL 70-110 H = 652) HGB/HCT (H&H) - STAT [id number] 15:24:00 Test Item Value Reference Range Interpretation Comments HEMOGLOBIN (BEAKER) (test code = 6.7 g/dL 12.0-15.0 L 410) HEMATOCRIT (BEAKER) (test code = 20.0 % 36.0-45.0 L 411) POTASSIUM-STAT [id number] 15:23:00 Test Item Value Reference Range Interpretation Comments POTASSIUM (BEAKER) (test code = 5.4 meq/L 3.6-5.5 379) BLOOD GAS, [id number] 15:07:00 Test Item Value Reference Range Interpretation [...] code = 1819) 70.0 % SODIUM NA-STAT [id number] 15:07:00 Test Item Value Reference Range Interpretation Comments SODIUM (BEAKER) (test code = 381) 129 meq/L 135-148 L GLUCOSE-STAT [id number] 15:07:00 Test Item Value Reference Range Interpretation Comments GLUCOSE RANDOM (BEAKER) (test code 172 mg/dL 70-110 H = 652) HGB/HCT (H&H) - STAT [id number] 15:07:00 Test Item Value Reference Range Interpretation Comments HEMOGLOBIN (BEAKER) (test code = 7.1 g/dL 12.0-15.0 L 410) HEMATOCRIT (BEAKER) (test code = 21.0 % 36.0-45.0 L 411) POTASSIUM-STAT [id number] 15:04:00 Test Item Value Reference Range Interpretation Comments POTASSIUM (BEAKER) (test code = 5.0 meq/L 3.6-5.5 379) BLOOD GAS, [id number] 14:21:00 Test Item Value Reference Range Interpretation [...] code = 1819) 70.0 % SODIUM NA-STAT [id number] 14:21:00 Test Item Value Reference Range Interpretation Comments SODIUM (BEAKER) (test code = 381) 133 meq/L 135-148 L GLUCOSE-STAT [id number] 14:21:00 Test Item Value Reference Range Interpretation Comments GLUCOSE RANDOM (BEAKER) (test code 160 mg/dL 70-110 H = 652) HGB/HCT (H&H) - STAT [id number] 14:21:00 Test Item Value Reference Range Interpretation Comments HEMOGLOBIN (BEAKER) (test code = 7.5 g/dL 12.0-15.0 L 410) HEMATOCRIT (BEAKER) (test code = 22.0 % 36.0-45.0 L 411) POTASSIUM-STAT [id number] 14:20:00 Test Item Value Reference Range Interpretation Comments POTASSIUM (BEAKER) (test code = 4.7 meq/L 3.6-5.5 379) BLOOD GAS, [id number] 13:58:00 Test Item Value Reference Range Interpretation [...] code = 1819) 80.0 % SODIUM NA-STAT [id number] 13:58:00 Test Item Value Reference Range Interpretation Comments SODIUM (BEAKER) (test code = 381) 132 meq/L 135-148 L GLUCOSE-STAT [id number] 13:58:00 Test Item Value Reference Range Interpretation Comments GLUCOSE RANDOM (BEAKER) (test code 166 mg/dL 70-110 H = 652) HGB/HCT (H&H) - STAT [id number] 13:58:00 Test Item Value Reference Range Interpretation Comments HEMOGLOBIN (BEAKER) (test code = 7.5 g/dL 12.0-15.0 L 410) HEMATOCRIT (BEAKER) (test code = 22.0 % 36.0-45.0 L 411) POTASSIUM-STAT [id number] 13:57:00 Test Item Value Reference Range Interpretation Comments POTASSIUM (BEAKER) (test code = 4.7 meq/L 3.6-5.5 379) BLOOD GAS, [id number] 13:35:00 Test Item Value Reference Range Interpretation [...] (test code = 1819) 80.0 % GLUCOSE-STAT [id number] 13:35:00 Test Item Value Reference Range Interpretation Comments GLUCOSE RANDOM (BEAKER) (test code 130 mg/dL 70-110 H = 652) HGB/HCT (H&H) - STAT [id number] 13:35:00 Test Item Value Reference Range Interpretation Comments HEMOGLOBIN (BEAKER) (test code = 6.7 g/dL 12.0-15.0 L 410) HEMATOCRIT (BEAKER) (test code = 20.0 % 36.0-45.0 L 411) SODIUM NA-STAT [id number] 13:35:00 Test Item Value Reference Range Interpretation Comments SODIUM (BEAKER) (test code = 381) 133 meq/L 135-148 L POTASSIUM-STAT [id number] 13:34:00 Test Item Value Reference Range Interpretation Comments POTASSIUM (BEAKER) (test code = 4.2 meq/L 3.6-5.5 379) BLOOD GAS, [id number] 13:16:00 Test Item Value Reference Range Interpretation [...] code = 1819) 80.0 % SODIUM NA-STAT [id number] 13:16:00 Test Item Value Reference Range Interpretation Comments SODIUM (BEAKER) (test code = 381) 133 meq/L 135-148 L HGB/HCT (H&H) - STAT [id number] 13:16:00 Test Item Value Reference Range Interpretation Comments HEMOGLOBIN (BEAKER) (test code = 6.3 g/dL 12.0-15.0 L 410) HEMATOCRIT (BEAKER) (test code = 19.0 % 36.0-45.0 L 411) CALCIUM, [id number] 13:15:00 Test Item Value Reference Range Interpretation Comments CALCIUM IONIZED (BEAKER) (test 0.98 mmol/L 1.12-1.27 L code = 698) PH, BLOOD (BEAKER) (test code = 7.34 1810) BLOOD GAS, [id number] 13:15:00 Test Item Value Reference Range Interpretation [...] (test code = 1819) 80.0 % GLUCOSE-STAT [id number] 13:14:00 Test Item Value Reference Range Interpretation Comments GLUCOSE RANDOM (BEAKER) (test code = 92 mg/dL 70-110 652) POTASSIUM-STAT [id number] 13:14:00 Test Item Value Reference Range Interpretation Comments POTASSIUM (BEAKER) (test code = 3.9 meq/L 3.6-5.5 379) BLOOD GAS, [id number] 10:54:00 Test Item Value Reference Range Interpretation [...] 1819) 100.0 % HGB/HCT (H&H) - STAT [id number] 10:54:00 Test Item Value Reference Range Interpretation Comments HEMOGLOBIN (BEAKER) (test code = 9.3 g/dL 12.0-15.0 L 410) HEMATOCRIT (BEAKER) (test code = 27.0 % 36.0-45.0 L 411) SODIUM NA-STAT [id number] 10:54:00 Test Item Value Reference Range Interpretation Comments SODIUM (BEAKER) (test code = 381) 132 meq/L 135-148 L GLUCOSE-STAT [id number] 10:52:00 Test Item Value Reference Range Interpretation Comments GLUCOSE RANDOM (BEAKER) (test code = 94 mg/dL 70-110 652) POTASSIUM-STAT [id number] 10:52:00 Test Item Value Reference Range Interpretation Comments POTASSIUM (BEAKER) (test code = 4.0 meq/L 3.6-5.5 379) HEMOGLOBIN [id number] 09:50:00 Test Item Value Reference Range Interpretation Comments HEMOGLOBIN A1C (BEAKER) (test code = 10.6 % 4.3-6.1 H 368) PLATELET AGGREGATION: FUNCTION [id number] 08:27:00 Test Item Value Reference Range Interpretation Comments WEAK ADP 63 % 60-91 RESULT(BEAKER) (test code = 2135) PLATELET FUNCTION 60-100% indicates SCREEN INTERP (BEAKER) normal platelet (test code = 2173) function [id number] Toshia Post MD (BEAKER) (test code = (electronic signature) 3780) PLATELET COUNT AGG 198 K/CU MM 150-450 (BEAKER) (test code = 2656) for patients on clopidogrel in past two weeksPOCT-GLUCOSE [id number] 08:11:00 Test Item Value Reference Range Interpretation Comments POC-GLUCOSE METER 116 mg/dL 70-110 H TESTED AT [facility] 6720 (BEAKER) (test code = JULIANO [place] [facility] 1538) [address] [id number] 07:10:00 Test Item Value Reference Range Interpretation Comments PHOSPHORUS (BEAKER) (test code = 4.5 mg/dL 2.3-4.7 604) [id number] 07:10:00 Test Item Value Reference Range Interpretation Comments MAGNESIUM (BEAKER) (test code = 2.1 mg/dL 1.6-2.6 627) BASIC METABOLIC [id number] 07:10:00 Test Item Value Reference Range Interpretation [...] = 700) CBC W/PLT COUNT & AUTO [id number] 06:46:00 Test Item Value Reference Range Interpretation [...] PERCENT (BEAKER) (test code = 2801) CALCIUM, [id number] 06:40:00 Test Item Value Reference Range Interpretation Comments CALCIUM IONIZED (BEAKER) (test 1.06 mmol/L 1.12-1.27 L code = 698) PH, BLOOD (BEAKER) (test code = 7.39 1810) POCT-GLUCOSE [id number] 23:22:00 Test Item Value Reference Range Interpretation Comments POC-GLUCOSE METER 165 mg/dL 70-110 H TESTED AT [facility] 6720 ([facility]) (test code = [place] 1538) [address] URINE PROTEIN ELECTROPHORESIS, [id number] 18:02:00 Test Item Value Reference Range Interpretation Comments PROTEIN, URINE 305 mg/dL 0-14 H (BEAKER) (test code = 1569) ALBUMIN URINE ELP 70.9 % (BEAKER) (test code = 1018) GAMMA GLOBULIN URINE 29.1 % (BEAKER) (test code = 1015) UPEP, ID-438 (BEAKER) No monoclonal bands (test code = 2604) detected. [id number] Rocio Galindo MD (BEAKER) (test code = (electronic signature) 8901) PROTEIN ELECTROPHORESIS, [id number] 17:57:00 Test Item Value Reference Range Interpretation [...] all globulin fractions. No monoclonal bands detected. [id number] Rocio Galindo MD (BEAKER) (test code = (electronic signature) 7889) PROTEIN TOTAL SERUM, 5.5 gm/dL 6.0-8.3 L SPEP (BEAKER) (test code = 6467) POCT-GLUCOSE [id number] 17:15:00 Test Item Value Reference Range Interpretation Comments POC-GLUCOSE METER 209 mg/dL 70-110 H TESTED AT [facility] 6720 (BEAKER) ([facility] 1538) [address] BLOOD GAS, [id number] 15:54:00 Test Item Value Reference Range Interpretation [...] 36.0 % RAD, CHEST, 1 VIEW, NON [id number] 14:07:00Reason for exam:->SOB, hypoxemiaShould this be performed [...] Regan Cespedes Verified Date/Time: 05/19/2017 14:07:07 Reading Location:[address] Consult Reading Room POCT-GLUCOSE [id number] 11:26:00 Test Item Value Reference Range Interpretation Comments POC-GLUCOSE METER 262 mg/dL 70-110 H TESTED AT [facility] 6720 ([facility]) (test code = JULIANO [place] [facility] 1538) [address] POCT-GLUCOSE [id number] 07:37:00 Test Item Value Reference Range Interpretation Comments POC-GLUCOSE METER 170 mg/dL 70-110 H TESTED AT [facility] 6720 ([facility]) (test code = [facility] [place] [facility] 1538) [address] CALCIUM, [id number] 06:06:00 Test Item Value Reference Range Interpretation Comments CALCIUM IONIZED (BEAKER) (test 1.05 mmol/L 1.12-1.27 L code = 698) PH, BLOOD (BEAKER) (test code = 7.41 1810) [id number] 05:38:00 Test Item Value Reference Range Interpretation Comments PHOSPHORUS (BEAKER) (test code = 3.9 mg/dL 2.3-4.7 604) [id number] 05:38:00 Test Item Value Reference Range Interpretation Comments MAGNESIUM (BEAKER) (test code = 2.2 mg/dL 1.6-2.6 627) BASIC METABOLIC [id number] 05:38:00 Test Item Value Reference Range Interpretation [...] PATIEN TS. CBC W/PLT COUNT & AUTO [id number] 05:09:00 Test Item Value Reference Range Interpretation [...] PERCENT (BEAKER) (test code = 2801) POCT-GLUCOSE [id number] 22:08:00 Test Item Value Reference Range Interpretation Comments POC-GLUCOSE METER 263 mg/dL 70-110 H TESTED AT [place] [address] ([facility]) (test code = [facility] 1538) [address] POCT-GLUCOSE [id number] 17:20:00 Test Item Value Reference Range Interpretation Comments POC-GLUCOSE METER 233 mg/dL 70-110 H TESTED AT [place] [address] ([facility]) (test code = [facility] 1538) [address] POCT-GLUCOSE [id number] 08:28:00 Test Item Value Reference Range Interpretation Comments POC-GLUCOSE METER 154 mg/dL 70-110 H TESTED AT [place] [address] ([facility]) (test code = [facility] 1538) [address] BASIC METABOLIC [id number] 06:41:00 Test Item Value Reference Range Interpretation [...] S NOT APPLICABLE FOR DIALYSIS PATIEN TS. [id number] 06:35:00 Test Item Value Reference Range Interpretation Comments PHOSPHORUS (BEAKER) (test code = 4.1 mg/dL 2.3-4.7 604) [id number] 06:35:00 Test Item Value Reference Range Interpretation Comments MAGNESIUM (BEAKER) (test code = 2.1 mg/dL 1.6-2.6 627) CALCIUM, [id number] 06:22:00 Test Item Value Reference Range Interpretation Comments CALCIUM IONIZED (BEAKER) (test 1.10 mmol/L 1.12-1.27 L code = 698) PH, BLOOD (BEAKER) (test code = 7.38 1810) CBC W/PLT COUNT & AUTO [id number] 06:04:00 Test Item Value Reference Range Interpretation [...] PERCENT (BEAKER) (test code = 2801) POCT-GLUCOSE [id number] 03:44:00 Test Item Value Reference Range Interpretation Comments POC-GLUCOSE METER 220 mg/dL 70-110 H TESTED AT [place] [address] ([facility]) (test code = JULIANO [place] [facility] 1538) [address] POCT-GLUCOSE [id number] 18:27:00 Test Item Value Reference Range Interpretation Comments POC-GLUCOSE METER 256 mg/dL 70-110 H TESTED AT [place] [address] ([facility]) ([facility] = [facility] 1538) [address] POCT-GLUCOSE [id number] 15:45:00 Test Item Value Reference Range Interpretation Comments POC-GLUCOSE METER 278 mg/dL 70-110 H TESTED AT [place] [address] ([facility]) (test code = JULIANO [place] [facility] 1538) [address] POCT-GLUCOSE [id number] 13:22:00 Test Item Value Reference Range Interpretation Comments POC-GLUCOSE METER 278 mg/dL 70-110 H TESTED AT [facility] 6720 (BEAKER) (test code = JULIANO Osborne [place] 1538) [address] PLATELET AGGREGATION: FUNCTION [id number] 13:18:00 Test Item Value Reference Range Interpretation Comments WEAK ADP 66 % 60-91 RESULT(BEAKER) (test code = 2135) PLATELET FUNCTION 60-100% indicates SCREEN INTERP (BEAKER) normal platelet (test code = 2173) function [id number] Rigoberto Duenas MD (BEAKER) (test code = (electronic signature) 2071) PLATELET COUNT AGG 204 K/CU MM 150-450 (BEAKER) (test code = 2656) POCT-GLUCOSE [id number] 08:27:00 Test Item Value Reference Range Interpretation Comments POC-GLUCOSE METER 189 mg/dL 70-110 H TESTED AT [facility] 6720 (BEAKER) (test code = J[place]IANO Osborne [place] 1538) [address] CALCIUM, [id number] 06:12:00 Test Item Value Reference Range Interpretation Comments CALCIUM IONIZED (BEAKER) (test 1.07 mmol/L 1.12-1.27 L code = 698) PH, BLOOD (BEAKER) (test code = 7.36 1810) [id number] 05:43:00 Test Item Value Reference Range Interpretation Comments PHOSPHORUS (BEAKER) (test code = 3.6 mg/dL 2.3-4.7 604) [id number] 05:43:00 Test Item Value Reference Range Interpretation Comments MAGNESIUM (BEAKER) (test code = 2.1 mg/dL 1.6-2.6 627) BASIC METABOLIC [id number] 05:43:00 Test Item Value Reference Range Interpretation [...] PATIEN TS. CBC W/PLT COUNT & AUTO [id number] 05:05:00 Test Item Value Reference Range Interpretation [...] NEUTROPHILS ABSOLUTE COUNT 5.41 K/ L 1.56-6.13 ([facility]) (test code = 670) LYMPHOCYTES ABSOLUTE COUNT 2.37 K/ L 1.18-3.74 (AKER) (test code = 414) MONOCYTES ABSOLUTE COUNT (BEAKER) 0.50 K/ L 0.24-0.36 H (test code = 415) EOSINOPHILS ABSOLUTE COUNT 0.27 K/ L 0.04-0.36 (AKER) (test code = 416) BASOPHILS ABSOLUTE COUNT (AKER) 0.06 K/ L 0.01-0.08 (test code = 417) IMMATURE GRANULOCYTES-RELATIVE 0 % 0-1 PERCENT ([facility]) (test code = 2801) POCT-GLUCOSE [id number] 21:32:00 Test Item Value Reference Range Interpretation Comments POC-GLUCOSE METER 176 mg/dL 70-110 H TESTED AT [place] [address] ([facility]) (test code = [facility] 1538) [address] POCT-GLUCOSE [id number] 20:27:00 Test Item Value Reference Range Interpretation Comments POC-GLUCOSE METER 161 mg/dL 70-110 H TESTED AT [place] [address] ([facility]) (test code = [facility] [place] [facility] 1538) [address] POCT-GLUCOSE [id number] 18:23:00 Test Item Value Reference Range Interpretation Comments POC-GLUCOSE METER 185 mg/dL 70-110 H TESTED AT [place] [address] ([facility]) (test code = [facility] [place] [facility] 1538) [address] POCT-GLUCOSE [id number] 13:26:00 Test Item Value Reference Range Interpretation Comments POC-GLUCOSE METER 282 mg/dL 70-110 H TESTED AT [place] [address] ([facility]) (test code = [facility] [place] [facility] 1538) [address] URINE [id number] 10:12:00 Test Item Value Reference Range Interpretation Comments CULTURE ([facility]) (test >100,000 col/mL skin code = 1095) todd POCT-GLUCOSE [id number] 09:01:00 Test Item Value Reference Range Interpretation Comments POC-GLUCOSE METER 268 mg/dL 70-110 H TESTED AT [place] [address] ([facility]) (test code = [facility] [place] [facility] 1538) [address] CALCIUM, [id number] 05:39:00 Test Item Value Reference Range Interpretation Comments CALCIUM IONIZED (BEAKER) (test 0.84 mmol/L 1.12-1.27 L code = 698) PH, BLOOD (BEAKER) (test code = 7.35 1810) BASIC METABOLIC [id number] 05:07:00 Test Item Value Reference Range Interpretation [...] S NOT APPLICABLE FOR DIALYSIS PATIEN TS. [id number] 05:06:00 Test Item Value Reference Range Interpretation Comments PHOSPHORUS (BEAKER) (test code = 3.2 mg/dL 2.3-4.7 604) [id number] 05:06:00 Test Item Value Reference Range Interpretation Comments MAGNESIUM (BEAKER) (test code = 2.3 mg/dL 1.6-2.6 627) CBC W/PLT COUNT & AUTO [id number] 04:42:00 Test Item Value Reference Range Interpretation [...] = 2801) RHEUMATOID FACTOR AB, REFLEX TO [id number] 01:52:00 Test Item Value Reference Range Interpretation Comments RHEUMATOID FACTOR (BEAKER) (test Negative code = 573) POCT-GLUCOSE [id number] 21:57:00 Test Item Value Reference Range Interpretation Comments POC-GLUCOSE METER 105 mg/dL 70-110 TESTED AT [place] [address] ([facility]) (test code = JULIANO [facility]borne [facility] 1538) [address] POCT-GLUCOSE [id number] 18:11:00 Test Item Value Reference Range Interpretation Comments POC-GLUCOSE METER 312 mg/dL 70-110 H Notified Dylon Austin MD/TESTED ([facility]) (test code = AT [facility] 67[address] [place] 1538) [facility] 7703 0 PET, CARDIAC PERFUSION MULTIPLE STUDIES, REST AND [id number] 16:28:00 Reason for exam:->pvcs, known cadFINAL REPORT PROCEDURE: Rest/Stress MYOCARDIAL PERFUSION PET with regadenoson\\XA9\\ CPT CODE: 55767 INDICATION: Defined extent and severity of known [...] is 23%. LVEF at stress is 36%. [employer] CT images revealed a right pleural effusion [...] pleural and pericardial effusions. 7. No previous [facility] study for comparison. NONINVASIVE RISK STRATIFICATION: The above findings are considered high risk (>3% annual mortality rate) based on the following criteria: - Severe resting left ventricular dysfunction (LVEF 35%)- Stress-induced large perfusion defect (particularly if anterior)(JACC. 2012;59(9):857-81.) Signed: Natan Whaley Verified Date/Time: 05/15/2017 16:28:12 Reading Location: [address] ReadingRoom RAD, CHEST, 1 VIEW, NON [id number] 15:56:00Reason for exam:->SOBShould this be performed at the bedside?->YesFINAL REPORT Comparison: 05/14/2017 TECHNIQUE: Single view of the chest FINDINGS: There is a small right pleural effusion with nonspecific airspace disease. This is unchanged. Left lung is grossly clear. Cardiac silhouette is enlarged. IMPRESSION: 1. No acute cardiopulmonary disease. Signed: Sixto Monk MDReport Verified Date/Time: 05/15/2017 15:56:39 [facility] POCT-GLUCOSE [id number] 12:54:00 Test Item Value Reference Range Interpretation Comments POC-GLUCOSE METER 308 mg/dL 70-110 H Notified Dylon Austin MD/NATHAN (ROBERT) (test code = AT [facility] [address] [place], [place] [address] 7703 0 U/S, RENAL WITH [id number] 11:04:00Reason for exam:->tracy, htnShould this be performed [...] Hobbs Verified Date/Time: 05/15/2017 11:04:01 Reading Location: [address] Ultrasound Reading Room ANA TITER AND [id number] 10:57:00 Test Item Value Reference Range Interpretation Comments ROGER TITER (BEAKER) (test code = :160 1541) ROGER PATTERN (BEAKER) (test code = Speckled 1781) ANTI-NUCLEAR ANTIBODY (ROGER)2017-05-15 10:56:00 Test Item Value Reference Range Interpretation Comments ANTI-NUCLEAR ANTIBODY (ROGER) (BEAKER) Positive Negative A (test code = 418) CALCIUM, [id number] 06:00:00 Test Item Value Reference Range Interpretation Comments CALCIUM IONIZED (BEAKER) (test 1.07 mmol/L 1.12-1.27 L code = 698) PH, BLOOD (BEAKER) (test code = 7.28 1810) HEPATITIS PANEL, [id number] 05:01:00 Test Item Value Reference Range Interpretation Comments HEPATITIS A IGM ANTIBODY (BEAKER) Nonreactive Nonreactive (test code = 498) HEPATITIS B CORE IGM ANTIBODY Nonreactive Nonreactive (BEAKER) (test code = 645) HEPATITIS C ANTIBODY (BEAKER) Nonreactive Nonreactive (test code = 367) HEPATITIS B SURFACE ANTIGEN (2) Nonreactive Nonreactive (BEAKER) (test code = 2585) BASIC METABOLIC [id number] 04:48:00 Test Item Value Reference Range Interpretation [...] NOT APPLICABLE FOR DIALYSIS PATIEN TS. URIC [id number] 04:41:00 Test Item Value Reference Range Interpretation Comments URIC ACID (BEAKER) (test code = 10.3 mg/dL 2.6-7.2 H 773) [id number] 04:41:00 Test Item Value Reference Range Interpretation Comments MAGNESIUM (BEAKER) (test code = 2.0 mg/dL 1.6-2.6 627) [id number] 04:41:00 Test Item Value Reference Range Interpretation Comments PHOSPHORUS (BEAKER) (test code = 4.2 mg/dL 2.3-4.7 604) COMPLEMENT COMPONENT [id number] 04:38:00 Test Item Value Reference Range Interpretation Comments C4 COMPLEMENT (BEAKER) (test code = 28 mg/dL 15-57 394) COMPLEMENT COMPONENT [id number] 04:38:00 Test Item Value Reference Range Interpretation Comments C3 COMPLEMENT (BEAKER) (test code = 103 mg/dL 82-193 393) CBC W/PLT COUNT & AUTO [id number] 04:22:00 Test Item Value Reference Range Interpretation [...] PERCENT (BEAKER) (test code = 2801) POCT-GLUCOSE [id number] 21:46:00 Test Item Value Reference Range Interpretation Comments POC-GLUCOSE METER 173 mg/dL 70-110 H TESTED AT [place] [address] ([facility]) ([facility] 1538[facility] [address] POCT-GLUCOSE [id number] 21:46:00 Test Item Value Reference Range Interpretation Comments POC-GLUCOSE METER 154 mg/dL 70-110 H TESTED AT [place] [address] ([facility]) (test code = [facility] 1538) [address] POCT-GLUCOSE [id number] 18:17:00 Test Item Value Reference Range Interpretation Comments POC-GLUCOSE METER 175 mg/dL 70-110 H TESTED AT [place] [address] ([facility]) (test code = [facility] 1538) [address] RAD, CHEST, 1 VIEW, NON [id number] 14:56:00Reason for exam:->SOBShould this be performed at the bedside?->YesFINAL REPORT INDICATION: SOB COMPARISON: May 13, 2017 TECHNIQUE: Chest radiograph, single view, portable technique. FINDINGS / IMPRESSION: Enlarged heart shadow, small rightpleural effusion, and pulmonary venous congestion, again demonstrated. No pneumothorax or consolidation. Osseous structures unremarkable. Signed: Thania Dwyereport Verified Date/Time: 05/14/2017 14:56:58 Reading Location: [facility] Reading Room POCT-GLUCOSE [id number] 12:18:00 Test Item Value Reference Range Interpretation Comments POC-GLUCOSE METER 313 mg/dL 70-110 H TESTED AT [facility] [address] ([facility]) (test code = [facility] [place] 1538) [address] HIV-1 ANTIGEN WITH HIV-1/2 [id number] 12:07:00 Test Item Value Reference Range Interpretation Comments HIV-1 ANTIGEN WITH HIV 1\\T\\2 Nonreactive Nonreactive ANTIBODY (2) (BEAKER) (test code = 2586) CALCIUM, [id number] 06:37:00 Test Item Value Reference Range Interpretation Comments CALCIUM IONIZED (BEAKER) (test 1.08 mmol/L 1.12-1.27 L code = 698) PH, BLOOD (BEAKER) (test code = 7.25 1810) BASIC METABOLIC [id number] 06:26:00 Test Item Value Reference Range Interpretation [...] pg/mL 0-100 H (test code = 700) [id number] 06:25:00 Test Item Value Reference Range Interpretation Comments PHOSPHORUS (BEAKER) (test code = 5.7 mg/dL 2.3-4.7 H 604) [id number] 06:25:00 Test Item Value Reference Range Interpretation Comments MAGNESIUM (BEAKER) (test code = 1.5 mg/dL 1.6-2.6 L 627) CBC W/PLT COUNT & AUTO [id number] 06:07:00 Test Item Value Reference Range Interpretation [...] PERCENT (BEAKER) (test code = 2801) POCT-GLUCOSE [id number] 22:38:00 Test Item Value Reference Range Interpretation Comments POC-GLUCOSE METER 262 mg/dL 70-110 H TESTED AT [facility] [address] (BEAKER) (test code = [facility] 1538) [address] PROTEIN, RANDOM [id number] 22:18:00 Test Item Value Reference Range Interpretation Comments PROTEIN, URINE (BEAKER) (test code 641 mg/dL 0-14 H = 1569) CREATININE, RANDOM [id number] 22:07:00 Test Item Value Reference Range Interpretation Comments CREATININE URINE (BEAKER) (test 124.9 mg/dL code = 375) Reference Range: No NormalsURINALYSIS W/ [id number] 22:03:00 Test Item Value Reference Range Interpretation [...] 1585) SOURCE(BEAKER) (test code = Urine, Voided 5894) [id number] 19:49:00 Test Item Value Reference Range Interpretation Comments SODIUM (BEAKER) (test 136 meq/L 136-145 code = 381) POTASSIUM (BEAKER) 5.1 meq/L 3.5-5.1 Specimen slightly (test code = 379) hemolyzed CHLORIDE (BEAKER) 104 meq/L 98-107 (test code = 382) CO2 (BEAKER) (test 25 meq/L 22-29 code = 355) Call if K > 5POCT-GLUCOSE [id number] 11:37:00 Test Item Value Reference Range Interpretation Comments POC-GLUCOSE METER 293 mg/dL 70-110 H TESTED AT [facility] 67[address] (BEAKER) (test code = [facility] 1538) [address] RAD, CHEST, 1 VIEW, NON [id number] 10:22:00Reason for exam:->SOBShould this be performed at the bedside?->YesFINAL REPORT Chest one view Discussion: There is cardiomegaly and interstitial congestion. A small right-sided effusion is noted. No pneumothorax. IMPRESSIONS: Suspected CHF. Signed: Nisbet, Jeannette MDReport Verified Date/Time: 05/13/2017 10:22:34 Reading Location: [facility] Reading Room POCT-GLUCOSE METER 2017-05-13 08:34:00 Test Item Value Reference Range Interpretation Comments POC-GLUCOSE METER 178 mg/dL 70-110 H TESTED AT [facility] 67[address] (BEAKER) (test code = [facility]IAN[facility] Osborne [place] 1538) [address] POCT-GLUCOSE [id number] 06:53:00 Test Item Value Reference Range Interpretation Comments POC-GLUCOSE METER 167 mg/dL 70-110 H TESTED AT [facility] 67[address] (BEAKER) (test code = JULIANO Osborne [place] 1538) [address] [id number] 04:48:00 Test Item Value Reference Range Interpretation Comments BLOOD UREA NITROGEN (BEAKER) (test 36 mg/dL 7-21 H code = 354) [id number] 04:48:00 Test Item Value Reference Range Interpretation Comments SODIUM (BEAKER) (test code = 381) 139 meq/L 136-145 POTASSIUM (BEAKER) (test code = 5.2 meq/L 3.5-5.1 H 379) CHLORIDE (BEAKER) (test code = 382) 109 meq/L 98-107 H CO2 (BEAKER) (test code = 355) 23 meq/L 22-29 [id number] 04:48:00 Test Item Value Reference Range Interpretation [...] WBC 0-0 (BEAKER) (test code = 413) [id number] 23:29:00 Test Item Value Reference Range Interpretation Comments ACTIVATED CLOTTING TIME 136 sec TEST ED AT [place] [address] ([facility]) (test code = JUL[facility]O Osborne [place] [address]) [address] [id number] 20:13:00 Test Item Value Reference Range Interpretation Comments ACTIVATED CLOTTING TIME 175 sec TEST ED AT [place] [address] ([facility]) (test code = JULIANO Osborne [place] [address]) [address] [id number] 18:36:00 Test Item Value Reference Range Interpretation Comments ACTIVATED CLOTTING TIME 202 sec TEST ED AT [place] [address] ([facility]) (test code = JULIANO Osborne [place] [address]) [address] [id number] 18:03:00 Test Item Value Reference Range Interpretation Comments ACTIVATED CLOTTING TIME 208 sec TEST ED AT [place] [address] ([facility]) (test code = JUL[facility]O Osborne [place] [address]) [address] BASIC METABOLIC [id number] 11:57:00 Test Item Value Reference Range Interpretation [...] NOT APPLICABLE FOR DIALYSIS PATIEN TS. PROTHROMBIN [id number] 11:15:00 Test Item Value Reference Range Interpretation [...] if on CoumadinCBC W/PLT COUNT & AUTO [id number] 11:01:00 Test Item Value Reference Range Interpretation [...] PERCENT (BEAKER) (test code = 2801) POCT-GLUCOSE [id number] 12:35:00 Test Item Value Reference Range Interpretation Comments POC-GLUCOSE METER 249 mg/dL 70-110 H TESTED AT [facility] 67[address] (BEAKER) (test code = [facility] 1538) [address] POCT-GLUCOSE [id number] 09:10:00 Test Item Value Reference Range Interpretation Comments POC-GLUCOSE METER 155 mg/dL 70-110 H TESTED AT [facility] 67[address] (BEAKER) (test code = [facility] 1538) [address] BASIC METABOLIC [id number] 05:39:00 Test Item Value Reference Range Interpretation [...] S NOT APPLICABLE FOR DIALYSIS PATIEN TS. [id number] 05:27:00 Test Item Value Reference Range Interpretation Comments PHOSPHORUS (BEAKER) (test code = 5.0 mg/dL 2.3-4.7 H 604) [id number] 05:27:00 Test Item Value Reference Range Interpretation Comments MAGNESIUM (BEAKER) (test code = 1.6 mg/dL 1.6-2.6 627) POCT-GLUCOSE [id number] 05:25:00 Test Item Value Reference Range Interpretation Comments POC-GLUCOSE METER 144 mg/dL 70-110 H TESTED AT [facility] 67[address] (BEAKER) (test code = [place] 1538) [address] PROTHROMBIN [id number] 04:58:00 Test Item Value Reference Range Interpretation Comments PROTIME (BEAKER) (test code = 14.2 seconds 11.7-14.7 759) INR (BEAKER) (test code = 370) 1.1 <=5.9 RECOMMENDED COUMADIN/WARFARIN INR THERAPY RANGESSTANDARD DOSE: 2.0 - 3.0 Includes: PROPHYLAXIS forvenous thrombosis, systemic embolization; TREATMENT for venous thrombosis and/or pulmonary embolus.HIGH RISK: Target INR is 2.5-3.5 for patients with mechanical heart valves.POCT-GLUCOSE [id number] 23:55:00 Test Item Value Reference Range Interpretation Comments POC-GLUCOSE METER 86 mg/dL 70-110 TESTED AT [place] [address] ([facility]) (test code = [facility] [place] [facility] [address] 1538) B-TYPE NATRIURETIC FACTOR (BNP)2017-04-22 18:13:00 Test Item Value Reference Range Interpretation Comments B-TYPE NATRIURETIC PEPTIDE 1203 pg/mL 0-100 H (BEAKER) (test code = 700) POCT-GLUCOSE [id number] 17:36:00 Test Item Value Reference Range Interpretation Comments POC-GLUCOSE METER 259 mg/dL 70-110 H TESTED AT [place] [address] ([facility]) (test code = [facility] 1538) [address] HEMOGLOBIN [id number] 14:24:00 Test Item Value Reference Range Interpretation Comments HEMOGLOBIN A1C ([facility]) (test code = 10.5 % 4.3-6.1 H 368) POCT-GLUCOSE [id number] 12:34:00 Test Item Value Reference Range Interpretation Comments POC-GLUCOSE METER 207 mg/dL 70-110 H TESTED AT [place] [address] ([facility]) (test code = [facility] 1538) [address] [id number] 07:53:00 Test Item Value Reference Range Interpretation Comments PHOSPHORUS (BEAKER) (test code = 3.9 mg/dL 2.3-4.7 604) [id number] 07:53:00 Test Item Value Reference Range Interpretation Comments MAGNESIUM (BEAKER) (test code = 1.6 mg/dL 1.6-2.6 627) BASIC METABOLIC [id number] 07:53:00 Test Item Value Reference Range Interpretation [...] NOT APPLICABLE FOR DIALYSIS PATIEN TS. TROPONIN [id number] 07:29:00 Test Item Value Reference Range Interpretation [...] acidosis, acute neurological disease, and persistent tachyarrhythmia.PROTHROMBIN [id number] 07:01:00 Test Item Value Reference Range Interpretation Comments PROTIME (ROBERT) (test code = 13.8 seconds 11.7-14.7 759) INR (ROBERT) (test code = 370) 1.1 <=5.9 RECOMMENDED COUMADIN/WARFARIN INR THERAPY RANGESSTANDARD DOSE: 2.0 - 3.0 Includes: PROPHYLAXIS forvenous thrombosis, systemic embolization; TREATMENT for venous thrombosis and/or pulmonary embolus.HIGH RISK: Target INR is 2.5-3.5 for patients with mechanical heart valves.POCT-GLUCOSE [id number] 06:28:00 Test Item Value Reference Range Interpretation Comments POC-GLUCOSE METER 198 mg/dL 70-110 H TESTED AT [facility] 67[address] (ROBERT) (test code = JULIANO Osborne [place] 1538) [address] CREATINE KINASE (CK), TOTAL AND [id number] 00:49:00 Test Item Value Reference Range Interpretation Comments CREATINE KINASE TOTAL (SERVANDOAKER) 69 U/L 29-200 (test code = 380) CREATINE KINASE-MB (SERVANDOAKER) (test 4.3 ng/mL 0.0-6.6 code = 750) CREATINE KINASE-MB INDEX (ROBERT) 6.2 % (test code = 395) CK-MB Reference Range:<6.7 Normal6.7-10.0 Borderline>10.0 AbnormalTROPONIN [id number] 00:49:00 Test Item Value Reference Range Interpretation [...] acidosis, acute neurological disease, and persistent tachyarrhythmia.POCT-GLUCOSE [id number] 20:44:00 Test Item Value Reference Range Interpretation Comments POC-GLUCOSE METER 269 mg/dL 70-110 H TESTED AT [facility] 67[address] (ROBERT) (test code = JULIANO [place] 1538) [address]
--- NOTE | 2020-10-24 12:36 | RAD REPORT ---
EXAM DESCRIPTION: CT - Head Brain Wo Cont - 10/24/2020 12:12 pm CLINICAL HISTORY: HEADACHE Headache, drowsiness COMPARISON: Maxillofacial Wo Con dated 12/05/2019; CT-STROKE BRAIN W/O CONTRAST dated 01/24/2014 TECHNIQUE: All CT scans are performed using dose optimization technique as appropriate and may inclu de automated exposure control or mA/KV adjustment according to patient size. FINDINGS: No intracranial hemorrhage, hydrocephalus or extra-axial fluid collection.Mild chronic jo ann rovascular ischemic changes the periventricular and deep white matter noted.No areas of brain edema o r evidence of midline shift. Vertebral atherosclerosis is present. The paranasal sinuses and mastoids are clear. The calvarium is intact. IMPRESSION: No acute intracranial abnormality.
[2020-10-24] MEDS ORDERED: HYDROCODONE/APAP 7.5/325 MG TAB ONE (14:02)
--- NOTE | 2020-10-24 18:08 | EDPHYS ---
Physician Documentation [facility] Name: Christy Priest Age: 65 yrs Sex: Female : 1955 Arrival Date: 10/24/2020 Time: 11:24 Bed 17 Private MD: ED Physician Jurgen Nettles HPI: 10/24 14:30 This 65 yrs old Female presents to ER via Wheelchair with complaints of jmm Headache, Fall Injury. 14:30 The patient complains of pain to the top of head and forehead. Onset: The jmm symptoms/episode began/occurred acutely, 2 week(s) ago. Associated signs and symptoms: Pertinent negatives: altered mental status, fever, malaise, nausea, neck stiffness, paresthesias, Photophobia rash, vomiting. This is a 65 year old female with a history of COPD CHF, end-stage renal disease, presents to the ED with complaints of headache after a fall which occurred approximately 2 weeks ago. Patient states she fell down multiple times. She states this is very common for her. Denies vomiting, neck pain.. Historical: - Allergies: 11:58 Augmentin; iw 11:58 basil; iw 11:58 Clindamycin; iw 11:58 Morphine; iw 11:58 Nitroglycerin; iw 11:58 Tramadol HCl; iw 11:58 Trazodone; iw 11:58 Vancomycin; iw 11:58 Vicodin; iw - Home Meds: 11:58 Allopurinol Oral [Active]; Aspirin Oral [Active]; atorvastatin Oral [Active]; Coreg iw Oral [Active]; gabapentin Oral [Active]; Hydralazine Oral [Active]; Lasix Oral [Active]; Levemir U-100 Insulin 100 unit/mL subcutaneous soln [Active]; lisinopril Oral [Active]; Nifedipine Oral [Active]; Plavix Oral [Active]; sertraline Oral [Active]; - PMHx: 11:58 ADD/ADHD; COPD; CHF; Diabetes - IDDM; Dialysis; ESRD; Hypertension; triple bypass; High iw Cholesterol; uterine cancer; - Immunization history:: Client reports having NOT received the Covid vaccine. - Social history:: Smoking status: Patient/guardian denies using tobacco, the patient reports quitting approximately 3 years ago. ROS: 14:30 Constitutional: Negative for fever, chills, and weight loss, Cardiovascular: Negative [facility] for chest pain, palpitations, and edema, Respiratory: Negative for shortness of breath, cough, wheezing, and pleuritic chest pain. 14:30 Neuro: Positive for headache. 14:30 All other systems are negative. Exam: 14:30 Constitutional: This is a well developed, well nourished patient who is awake, alert, jmm and in no acute distress. Head/Face: atraumatic. Eyes: EOMI, no conjunctival erythema appreciated ENT: Moist Mucus Membranes Neck: Trachea midline, Supple Chest/axilla: Normal chest wall appearance and motion. Cardiovascular: Regular rate and rhythm. No edema appreciated Respiratory: Normal respirations, no respiratory distress appreciated Abdomen/GI: Non distended, soft Back: Normal ROM Skin: General appearance color normal 14:30 Musculoskeletal/extremity: ROM: intact in all extremities. 14:30 Skin: Appearance: Color: normal in color. 14:30 Neuro: Orientation: is normal, Mentation: is normal, Memory: is normal. 14:30 Psych: Behavior/mood is pleasant, cooperative. Vital Signs: 11:56 BP 146 / 87; Pulse 69; Resp 16; Temp 97.9; Pulse Ox 100% on R/A; Weight 75.75 kg; iw Height 5 ft. 7 in. (170.18 cm); Pain 10/10; 14:30 BP 142 / 86; Pulse 63; Resp 16; Pulse Ox 99% ; vg1 11:56 Body Mass Index 26.16 (75.75 kg, 170.18 cm) iw MDM: 13:31 Patient medically screened. [facility] 14:33 Data reviewed: vital signs, nurses notes. Counseling: I had a detailed discussion with [facility] the patient and/or guardian regarding: the historical points, exam findings, and any diagnostic results supporting the discharge/admit diagnosis, lab results, radiology results, the need for outpatient follow up, to return to the emergency department if symptoms worsen or persist or if there are any questions or concerns that arise at home. ED course: Pain is alleviated in the ED. CT was negative. Patient has no focal neuro deficits. Patient is advised to follow-up with neurology for further evaluation due to ongoing headache. Patient did refuse CT angiography for further evaluation of headache. . 10/24 12:00 Order name: CT Head Brain wo Cont; Complete Time: 13:26 iw Administered Medications: 13:45 Drug: [place] (HYDROcodone-acetaminophen) (7.5 mg-325 mg) 1 tabs {Note: rass 0.} Route: vg1 PO; 15:00 Follow up: Response: No adverse reaction; Marked relief of symptoms vg1 Disposition: 16:51 Co-signature as Attending Physician, Jurgen Nettles MD. rn Disposition Summary: 10/24/20 14:34 Discharge Ordered Location: Home [facility] Condition: Stable [facility] Diagnosis - Unspecified injury of head, initial encounter [facility] Followup: [facility] - With: Collin Dorado MD - When: 2 - 3 days - Reason: Recheck today's complaints, Continuance of care, Re-evaluation by your physician Discharge Instructions: - Discharge Summary Sheet [facility] - Head Injury, Adult [facility] Forms: - Medication Reconciliation Form [facility] - Thank You Letter [facility] - Antibiotic Education [facility] - Prescription Opioid Use [facility] Prescriptions: - orphenadrine citrate 100 mg Oral Tablet Sustained Release - take 1 tablet by ORAL route 2 times per day As needed; 20 tablet; Refills: 0, [facility] Product Selection Permitted Signatures: Dispatcher [employer] EDPedro Taylor PA PA jmm Williams, Irene, RN Jurgen Quevedo MD MD rn Garcia, Victoria, RN RN vg1
--- NOTE | 2020-10-24 18:08 | ER ---
Nurse's Notes [facility] Name: Christy Priest Age: 65 yrs Sex: Female : 1955 Arrival Date: 10/24/2020 Time: 11:24 Bed 17 Private MD: Diagnosis: Unspecified injury of head, initial encounter Presentation: 10/24 11:56 Chief complaint: Patient states: has been falling a lot lately, and she always hits the iw front of her head, feels like someone is putting a nail into her head , has been getting confused , symptoms started a couple weeks ago. Coronavirus screen: At this time, the client does not indicate any symptoms associated with coronavirus-19. Ebola Screen: Patient negative for fever greater than or equal to 101.5 degrees Fahrenheit, and additional compatible Ebola Virus Disease symptoms Patient denies exposure to infectious person. Patient denies travel to an Ebola-affected area in the 21 days before illness onset. No symptoms or risks identified at this time. Initial Sepsis Screen: Does the patient meet any 2 criteria? Does the patient have a suspected source of infection? No. Patient's initial sepsis screen is negative. Risk Assessment: Do you want to hurt yourself or someone else? Patient reports no desire to harm self or others. Onset of symptoms was October 10, 2020. 11:56 Method Of Arrival: Wheelchair iw 11:56 Acuity: DENNY 3 iw Historical: - Allergies: 11:58 Augmentin; iw 11:58 basil; iw 11:58 Clindamycin; iw 11:58 Morphine; iw 11:58 Nitroglycerin; iw 11:58 Tramadol HCl; iw 11:58 Trazodone; iw 11:58 Vancomycin; iw 11:58 Vicodin; iw - Home Meds: 11:58 Allopurinol Oral [Active]; Aspirin Oral [Active]; atorvastatin Oral [Active]; Coreg iw Oral [Active]; gabapentin Oral [Active]; Hydralazine Oral [Active]; Lasix Oral [Active]; Levemir U-100 Insulin 100 unit/mL subcutaneous soln [Active]; lisinopril Oral [Active]; Nifedipine Oral [Active]; Plavix Oral [Active]; sertraline Oral [Active]; - PMHx: 11:58 ADD/ADHD; COPD; CHF; Diabetes - IDDM; Dialysis; ESRD; Hypertension; triple bypass; High iw Cholesterol; uterine cancer; - Immunization history:: Client reports having NOT received the Covid vaccine. - Social history:: Smoking status: Patient/guardian denies using tobacco, the patient reports quitting approximately 3 years ago. Screenin:33 Abuse screen: Denies threats or abuse. Nutritional screening: No deficits noted. vg1 Tuberculosis screening: No symptoms or risk factors identified. Fall Risk Fall in past 12 months (25 points). No secondary diagnosis (0 pts). No IV (0 pts). Ambulatory Aid- None/Bed Rest/Nurse Assist (0 pts). Gait- Normal/Bed Rest/Wheelchair (0 pts) Mental Status- Oriented to own ability (0 pts). Total Merlos Fall Scale indicates No Risk (0-24 pts). Assessment: 13:32 General: Appears in no apparent distress. comfortable, Behavior is calm, cooperative. vg1 Pain: Complains of pain in head Pain currently is 8 out of 10 on a pain scale. Pain began about a week ago. Neuro: Level of Consciousness is awake, alert, obeys commands, Oriented to person, place, time, situation, Reports headache Denies blurred vision dizziness. Cardiovascular: Patient's skin is warm and dry. Respiratory: Airway is patent Respiratory effort is even, unlabored. GI: Patient currently denies nausea, vomiting. : No signs and/or symptoms were reported regarding the genitourinary system. EENT: No signs and/or symptoms were reported regarding the EENT system. Derm: Skin is intact, Skin is pink, warm \T\ dry. Musculoskeletal: Circulation, motion, and sensation intact. 14:30 Reassessment: Patient appears in no apparent distress at this time. Patient and/or vg1 family updated on plan of care and expected duration. Pain level reassessed. Patient is alert, oriented x 3, equal unlabored respirations, skin warm/dry/pink. Patient denies pain at this time. Patient states feeling better. Vital Signs: 11:56 BP 146 / 87; Pulse 69; Resp 16; Temp 97.9; Pulse Ox 100% on R/A; Weight 75.75 kg; iw Height 5 ft. 7 in. (170.18 cm); Pain 10/10; 14:30 BP 142 / 86; Pulse 63; Resp 16; Pulse Ox 99% ; vg1 11:56 Body Mass Index 26.16 (75.75 kg, 170.18 cm) ED Course: 11:24 Patient arrived in ED. as 11:58 Triage completed. iw 12:00 Arm band placed on. iw 12:12 CT Head Brain wo Cont In Process Unspecified. EDMS 13:05 Pedro Wall PA is PHCP. [facility] 13:05 Jurgen Nettles MD is Attending Physician. [facility] 13:25 Arlette Glass, RN is Primary Nurse. vg1 13:33 Patient has correct armband on for positive identification. Pt stated wanted to stay in vg1 wheelchair. 14:34 Collin Dorado MD is Referral Physician. [facility] 15:14 No provider procedures requiring assistance completed. Patient did not have IV access vg1 during this emergency room visit. Administered Medications: 13:45 Drug: [place] (HYDROcodone-acetaminophen) (7.5 mg-325 mg) 1 tabs {Note: rass 0.} Route: vg1 PO; 15:00 Follow up: Response: No adverse reaction; Marked relief of symptoms vg1 Outcome: 14:34 Discharge ordered by . jmm 15:14 Discharged to home via wheelchair. vg1 15:14 Condition: stable 15:14 Discharge instructions given to patient, Instructed on discharge instructions, follow up and referral plans. medication usage, Demonstrated understanding of instructions, follow-up care, medications, Prescriptions given X 1. 15:15 Patient left the ED. vg1 Signatures: Dispatcher [employer] EDMS Pedro Wall PA PA jmm Martinez, Amelia as Tsering Underwood, RN RN Arlette Glass, GUILHERME RN vg1
== END 2020-10-24 15:15 | disposition home or self-care (01) ==
LOC: ER 11:21
DX: S09.90XA Unspecified injury of head, initial encounter (principal); W19.XXXA Unspecified fall, initial encounter; R29.6 Repeated falls; I13.2 Hypertensive heart and chronic kidney disease with heart failure and with stage 5 chronic kidney disease, or end stage renal disease; E11.22 Type 2 diabetes mellitus with diabetic chronic kidney disease; N18.6 End stage renal disease; Z99.2 Dependence on renal dialysis; F90.9 Attention-deficit hyperactivity disorder, unspecified type; J44.9 Chronic obstructive pulmonary disease, unspecified; I50.9 Heart failure, unspecified; Z79.4 Long term (current) use of insulin; Z95.1 Presence of aortocoronary bypass graft; E78.00 Pure hypercholesterolemia, unspecified; Z85.42 Personal history of malignant neoplasm of other parts of uterus; Z87.891 Personal history of nicotine dependence
CPT/HCPCS: 70450

== ENCOUNTER 2020-11-06 17:56 | Inpatient (IN) | payer OTHER ==
--- OUTSIDE RECORDS SUMMARY | 2020-11-06 18:10 | XMS REPORT | Continuity of Care Document ---
:1955 Author Organization [facility] t Address [address] [place] [address] Care Team Providers Name Role Phone Landy Rendon Primary Care Physician Babatunde PIERRE Attending Clinician Mk PIERRE Attending Clinician Lisa Mohamud MD Attending Clinician LISA MOHAMUD Attending Clinician Unavailable Kj PIERRE, Tracy Attending Clinician Cesia Kearns MD Attending Clinician Neeta PIERRE, Maggy Attending Clinician Belkis PIERRE, Taj Attending [...] Date Expiration Date Sour ce Cassie ALMANZA [id number] [address] [facility] MEDICAIDMEDICAID 00:00:00 - Medica nicolle [id number] Ce nter 2-Present Problems Condition Condition Condition [...] rosis of 2[address] [facility] [place] Medical artery of artery of 00 Cent er extremity extremity with with ulceration ulceration Acute CHF Acute CHF Disease Active [facility] Medical 00 [place] COPD COPD Disease Active [facility] (chronic (chronic [facility]14 [facility] - obstructiv obstructiv 00:00: Me dical e e 00 Center pulmonary pulmonary disease) disease) Controlled Controlled Disease Active [facility] type 2 type 2 2-14 [facility] - diabetes diabetes 00:00: Medica l mellitus mellitus 00 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, disorder, with with long-term long-term current current use of use of insulin insulin Smoker Smoker Disease Active [facility] - [facility]: Medical 00 [place] Frequent Frequent Disease Active [facility] [...] [facility] polyneurop polyneurop Janna bernardino goodrich Memoria associated associated l with type with [...] COPD d 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 [facility] current current [facility] - use of use of Memoria insulin insulin l Outpati ent Clinics History of History of Problem Active [facility] stroke stroke [facility] 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2 [...] St disease disease [facility] Allergies, Adverse Reactions, Alerts Allergy Allergy Status Severity Reaction(s) Onset Inactive Treating Comm ents Source Name Type Date Date Clinician Trazodon Drug Active Nausea And [facility] Allergy Vomiting 2-12 [facility] - 00:[facility]: Medical 00 [place] Morphine Propensi Active Anaphylaxis [facility] ty to 04-21 [facility] - adverse 00:00: Medical reaction 00 [place] s Nitrogly Propensi Active Nausea And [address] [facility] cerin ty to Vomiting 04-21 ONLY [facility] - adverse 00:00: Medical reaction 00 [place] s Vancomyc Propensi Active Nausea And [facility] in ty to Vomiting 04-21 [facility] - Analogue adverse 00:00: Medical s reaction 00 [place] s Amoxicil Propensi Active Diarrhea [facility] kenzie-Pot ty to 04-21 [facility] - Clavulan adverse 00:00: Medical ate reaction 00 [place] s Basil Propensi Active Nausea Only [facility] ty to 1-22 [facility] - adverse 00:00: Medical reaction 00 Center s Vancomyc Adverse Active vomiting [facility] in HCl Reaction [facility] - [facility] Nitrogly Adverse Active vomiting [facility] cerin Reaction kes - [facility] Morphine Adverse Active headache, [facility] Sulfate Reaction breathing Luke s - Memoria l [facility] Clindamy Adverse Active vomiting [facility] riley HCl Reaction [facility] Family History Family Member Diagnosis Comments Start Date Stop Date Source Natural father COPD [facility] Natural father Cancer [facility] Natural father Hypertension [facility] Natural mother No Known Problem [facility] Natural sister Asthma [facility] Natural sister COPD [facility] Social History Social Habit Start Date Stop Date Quantity Comments Source Sex Assigned At [facility] Cigarettes smoked 2019-12-31 2019-12-[address] [facility] - current (pack per 00:00:00 00:00:00 [facility] day) - Reported Cigarette 2019-12-31 2019-12-[address] [facility] - pack-years 00:00:00 00:00:00 [facility] Tobacco use and 2019-12-31 2019-12-31 Never [address] [facility] - exposure 00:00:00 00:00:00 [facility] Alcohol intake 2019-12-31 2019-12-[address] [facility] - 00:00:00 00:00:00 non-drinker of Medical nter alcohol (finding) History of tobacco 2017-05-12 Current sm[facility] - use 00:00:00 [facility] Smoking Status Start Date Stop Date Source Former smoker 2019-12-31 00:00:00 2019-12-31 00:00:00 [facility] Medications Ordered Filled Start Stop Current Ordering Indication Dosage Frequency Signature Comments Components Source Medication Medication Date Date Medication? Clinician (SIG) Name Name mupirocin 2019-03 Yes QD Apply [facility] (BACTROBAN) 0-03 topically Lay es - 2 % 10:49: daily. Medical ointment [address] [place] [address] collagenase 2019-03 Yes QD Apply [facility] (SANTYL) 0-03 topically [facility] - 250 units/g 10:49: daily. Medi marilin ointment 00 Center bumetanide 2019-03 Yes 2mg [id number] Take [address] (BUMEX) 2 0-03 [id number] by mouth 3 [facility] - MG tablet [...] tablet 00 daily with Center breakfast. levoFLOXaci 2020-1 2020- No 250mg QD Take 1 CH [...] 00:00 daily. Medical 18 :00 Center isosorbide 2020- No 30mg QD Take 30 mg [...] [address] [facility] (FLOVENT 3-04 puff by Shannon - HFA) 110 00:00: mouth via Medi [...] - MOUTH Memoria EVERYDAY l AT BEDTIME [facility] Isosorbide Isosorbide Yes Franki TAKE [address] [facility] Mononitrate Mononitrate Jas TABLET BY [facility] - ER ER MOUTH Memoria EVERY DAY l [facility] NIFEdipine NIFEdipine Yes Franki TAKE [address] [facility] ER ER Jas TABLET BY [facility] - MOUTH Memoria EVERY DAY l [facility] BuPROPion BuPROPion Yes Franki TAKE [address] HCl HCl Jas TABLET BY [facility] - MOUTH Memoria EVERY DAY l [facility] ent Clinics Acetaminoph Acetaminoph Yes Franki (Schedule [facility] en-Codeine en-Codeine Jas III Drug) Lubernardino - #3 #3 TAKE 1 Memoria TABLET BY l MOUTH Outpati EVERY 6 ent HOURS Clinics NEEDED FOR PAIN Carvedilol Carvedilol Yes Franki TAKE [address] [facility] [address] Jas TABLET BY [facility]ukes - MOUTH Memoria TWICE A l DAY [facility] Advair Advair Yes Franki INHALE 1 [facility] Diskus Diskus Jas DOSE BY [facility] - MOUTH Memoria TWICE l DAILY. [facility] RINSE ent MOUTH Clinics AFTER USE Atorvastati Atorvastati Yes Franki TAKE [address] [facility] n Calcium n Calcium Jas TABLET BY [facility] - MOUTH Memoria EVERY DAY l [facility] ent Clinics Allopurinol Allopurinol Yes Franki TAKE [address] [facility] Jas TABLET BY [facility]ukes - MOUTH Memoria TWICE A l DAY [facility] Gabapentin Gabapentin Yes Franki TAKE [address] [facility] Jas CAPSULE BY [facility]ukes - MOUTH Memoria THREE l TIMES A [facility] DAY ent Clinics Clopidogrel Clopidogrel Yes Franki TAKE [address] [facility] [address] Bisulfate Bisulfate Jas TABLET BY [facility] - MOUTH Memoria EVERY DAY l [facility] Vitamin D Vitamin D Yes Franki TAKE ONE [facility] (Ergocalcif (Ergocalcif Jas CAPSULE BY Lukes - berta) berta) MOUTH ONE Memoria TIME PER l WEEK [facility] Furosemide Furosemide Yes Franki [...] Jas UNITS Lay es - BELOW THE [facility] SKIN IN l THE Outpati MORNING ent Clinics HydrALAZINE HydrALAZINE Yes Franki TAKE [address] [facility] HCl HCl Jas TABLET BY [facility]ukes - MOUTH Memoria THREE l TIMES A Outpati DAY ent Clinics Vital Signs Vital Name Observation Time Observation Value Comments Source Heart rate 2020-01-01 08:41:00 60 /min [facility] Respiratory rate 2020-01-01 08:41:00 18 /min [facility] Oxygen saturation in 2020-01-01 08:41:00 100 /min [facility] Arterial blood by Medical Ce nter Pulse oximetry Systolic blood 2020-01-01 08:32:00 162 mm[Hg] [facility] Diastolic blood 2020-01-01 08:32:00 73 mm[Hg] [facility] Body temperature 2020-01-01 07:41:00 36.56 Deanne [facility] Body weight 2019-12-30 04:28:00 78.2 kg [facility] BMI 2019-12-30 04:28:00 27.00 kg/m2 [facility] Body height 2019-12-25 21:05:00 170.2 cm [facility] Procedures Procedure Date / Time Performed Performing Clinician [facility] e REPORT OF PROCEDURE - 2020-01-05 08:40:02 Provider, Default [facility] ENDOSCOPY SCAN Scanning [facility] RHYTHM STRIP - SCAN 2020-01-05 08:31:43 Provider, Default [facility] RHYTHM STRIP - SCAN 2020-01-05 08:31:42 Provider, Default [facility] RHYTHM STRIP - SCAN 2020-01-05 08:31:40 Provider, Default [facility] CARDIAC CATH REPORT - 2020-01-05 08:31:15 Provider, [facility] CARDIAC CATH REPORT - 2020-01-05 08:31:13 Provider, [facility] POCT-GLUCOSE METER 2020-01-01 06:33:00 Cade [facility] CBC W/PLT COUNT & AUTO 2020-01-01 05:37:00 [facility]OL[facility] 2020-01-01 05:37:00 [place] [facility] POCT-GLUCOSE METER 2019-12-31 20:50:00 Cade [facility] POCT-GLUCOSE METER 2019-12-31 18:00:00 Cade [facility] POCT-GLUCOSE METER 2019-12-31 11:42:00 Cade [facility] POCT-GLUCOSE METER 2019-12-31 06:29:00 Cade [facility] CBC W/PLT COUNT & AUTO 2019-12-31 06:05:00 [place] [facility] METABOLIC 2019-12-31 06:05[facility] 2019-12-31 06:05:00 Cade Pat [facility] POCT-GLUCOSE METER 2019-12-30 20:13:00 Cade [facility] POCT-GLUCOSE METER 2019-12-30 16:26:00 Pat Mohamud [facility] SURGICALLY OBTAINED 2019-12-30 13:59:46 Evens Mohamudruel [facility] - CULTURE + GRAM STAIN Medical Matthew ter ANAEROBIC CULTURE 2019-12-30 13:59:46 [facility] SURGICALLY OBTAINED 2019-12-30 13:54:56 Cade Pat [facility] - CULTURE + GRAM STAIN Medical Matthew ter ANAEROBIC CULTURE 2019-12-30 13:54:56 Pat Mohamud [facility] TISSUE EXAM 2019-12-30 13:38:00 Tala Santacruz [facility] I&D,BONE FOOT 2019-12-30 13:11:00 Tala Santacruz [facility] POCT-GLUCOSE METER 2019-12-30 11:39:00 Pat Mohamud [facility] ECG 12-LEAD 2019-12-30 10:53:36 Unknown, Hl7 Doctor [facility] POCT-GLUCOSE METER 2019-12-30 05:39:00 Pat Mohamud [facility] SARS-COV2/RT-PCR ([facility] & 2019-12-30 05:11:00 Pat Mohamud [facility] - REF LABS) [facility] CBC W/PLT COUNT & AUTO 2019-12-30 05:09:00 [place] [facility]otoLily [facility] DIFFERENTIAL [facility] COMPREHENSIVE METABOLIC 2019-12-30 05:09:00 [place]otoLily [facility] POCT-GLUCOSE METER 2019-12-29 21:09:00 Pat Mohamud [facility] POCT-GLUCOSE METER 2019-12-29 11:10:00 Pat [facility]ud[facility] HEMODIALYSIS INPATIENT 2019-12-29 08:12:17 Brandie Khan [facility] POCT-GLUCOSE METER 2019-12-29 06:10:00 Pat Mohamud [facility] CBC W/PLT COUNT & AUTO 2019-12-29 05:50:00 [place] [facility] DIFFERENTIAL [facility] COMPREHENSIVE METABOLIC 2019-12-29 05:50:00 [place]otoLily [facility] POCT-GLUCOSE METER 2019-12-28 20:37:00 [facility] POCT-GLUCOSE METER 2019-12-28 17:38:00 [facility] POCT-GLUCOSE METER 2019-12-28 13:12:00 Pat MohamudEl [facility] POCT-GLUCOSE METER 2019-12-28 05:43:00 Pat Mohamud [facility] CBC W/PLT COUNT & AUTO 2019-12-28 04:41:00 [place] Lily [facility] COMPREHENSIVE METABOLIC 2019-12-28 04:41:00 [place]otoLily [facility] ABD AO & LOWER EXT 2019-12-28 02:30:00 Sakina Tamayo [facility] - ANGIOS/ POSS PPI [facility] POCT-GLUCOSE METER 2019-12-27 20:32:00 Pat [facility]ud[facility] MR LOWER EXTREMITY 2019-12-27 16:30:00 [place] [facility] - WITHOUT IV CONTRAST [facility] POCT-GLUCOSE METER 2019-12-27 14:06:00 Cade [facility] WOUND CULTURE + GRAM 2019-12-27 12:02:00 Annia Delgado I [facility] POCT-GLUCOSE METER 2019-12-27 06:44:00 Cade [facility] POCT-GLUCOSE METER 2019-12-27 05:49:00 [facility] CBC W/PLT COUNT & AUTO 2019-12-27 05:05:[address] [facility] METABOLIC 2019-12-27 05:05:00 Lily Echavarria [facility] HEMODIALYSIS INPATIENT 2019-12-27 00:31:18 Brandie Khan [facility] POCT-GLUCOSE METER 2019-12-26 20:51:00 Cade [facility] TRANSFUSION SERVICE 2019-12-26 18:02:44 Rocco Sepulveda [facility] REPORT - SCAN Scanning [facility] POCT-GLUCOSE METER 2019-12-26 16:42:00 [facility] CT/CTA AAA AND RUNOFF 2019-12-26 15:27:00 Sakina Tamayo [facility] POCT-GLUCOSE METER 2019-12-26 11:59:00 Evens Mohamudruel [facility] POCT-GLUCOSE METER 2019-12-26 06:09:00 Cade [facility] CBC W/PLT COUNT & AUTO 2019-12-26 04:36:00 [place] Lily [facility] DIFFERENTIAL [facility] [place] [place] METABOLIC 2019-12-26 04:36:00 [place] [facility] PREPARE LEUKO-REDUCED RBC 2019-12-25 23:54:00 Brandie Khan [facility] POCT-GLUCOSE METER 2019-12-25 20:51:00 Cade [facility] TRANSFUSION SERVICE 2019-12-25 18:04:44 Rocco Sepulveda [facility] REPORT - SCAN Scanning [facility] POCT-GLUCOSE METER 2019-12-25 17:01:00 [facility] POCT-GLUCOSE METER 2019-12-25 11:25:00 Cade [facility] CBC W/PLT COUNT & AUTO 2019-12-25 05:59:00 Lily Echavarria [facility] 2019-12-25 05:59:00 [place] [facility] POCT-GLUCOSE METER 2019-12-25 05:58:00 Cade [facility] TRANSFUSE LEUKO-REDUCED 2019-12-24 19:06:17 Brandie Khan [facility] RED BLOOD CELLS [facility] POCT-GLUCOSE METER 2019-12-24 16:15:00 Cade [facility] ABORH, MANUAL 2019-12-24 08:25:00 Jovita Griffith [facility] POCT-GLUCOSE METER 2019-12-24 06:11:00 Cade [facility] TYPE AND SCREEN, 2019-12-24 06:08:00 Brandie Khan [facility] CBC W/PLT COUNT & AUTO 2019-12-24 05:51:00 Lily [facility]avarria [facility] DIFFERENTIAL [facility] COMPREHENSIVE METABOLIC 2019-12-24 05:51:00 Lily Echavarria [facility] POCT-GLUCOSE METER 2019-12-23 21:23:00 Pat Mohamud [facility] POCT-GLUCOSE METER 2019-12-23 16:42:00 Pat [facility]ud[facility] MR LOWER EXTREMITY JOINT 2019-12-23 15:34:00 Tala Santacruz hy [facility] ONLY WITHOUT IV CONTRAST [facility] LEFT MR BRAIN WITHOUT IV 2019-12-23 15:34:[address] [facility] [address] [facility] - CONTRAST [facility] POCT-GLUCOSE METER 2019-12-23 11:16:00 Pat [facility]ud[facility] ARTERIAL DOPPLER LEGS 2019-12-23 09:38:00 Tala Santacruz Thy [facility] BILATERAL [facility] AMMONIA 2019-12-23 04:05:[address] [facility] CBC W/PLT COUNT & AUTO 2019-12-23 04:00:00 Lily Echavarria [facility] DIFFERENTIAL [facility] COMPREHENSIVE METABOLIC 2019-12-23 04:00:00 JerichoLily [facility] SARS-COV2/RT-PCR ([facility] & 2019-12-23 03:59:00 Pat Mohamud [facility] POCT-GLUCOSE METER 2019-12-22 20:34:00 Pat Mohamud [facility] POCT-GLUCOSE METER 2019-12-22 16:43:00 Pat Mohamud [facility] POCT-GLUCOSE METER 2019-12-22 11:31:00 Pat Mohamud [facility] POCT-GLUCOSE METER 2019-12-22 06:30:00 Pat [facility]ud[facility] CBC W/PLT COUNT & AUTO 2019-12-22 05:14:00 Jericho, Lily [facility] COMPREHENSIVE METABOLIC 2019-12-22 05:14:00 Lily Echavarria [facility] POCT-GLUCOSE METER 2019-12-21 20:26:00 Pat Mohamud [facility] POCT-GLUCOSE METER 2019-12-21 17:22:00 Pat [facility]ud [facility] POCT-GLUCOSE METER 2019-12-21 12:35:00 Pat Mohamud [facility] POCT-GLUCOSE METER 2019-12-21 07:20:00 [facility] POCT-GLUCOSE METER 2019-12-21 05:52:00 [facility] C-REACTIVE PROTEIN 2019-12-21 04:39:00 Annia Delgado [facility] CBC W/PLT COUNT & AUTO 2019-12-21 04:39:00 [place]otoLily [facility] COMPREHENSIVE METABOLIC 2019-12-21 04:39:00 De SotoLily [facility] US ABDOMEN COMPLETE 2019-12-20 21:17:00 Sakina Chen [facility] POCT-GLUCOSE METER 2019-12-20 20:23:00 Pat Mohamud [facility] POCT-GLUCOSE METER 2019-12-20 17:31:00 Pat Mohamud [facility] CT BRAIN WITHOUT IV 2019-12-20 16:04:[address] [facility] AMMONIA 2019-12-20 14:41:00 [place] [facility] BLOOD GAS, ARTERIAL 2019-12-20 14:28:[address] [facility] XR FOOT 2 VIEWS LEFT 2019-12-20 11:55:[address] [facility] POCT-GLUCOSE METER 2019-12-20 11:28:00 [facility] POCT-GLUCOSE METER 2019-12-20 06:20:00 Pat Mohamud [facility] OCCULT BLOOD, STOOL 2019-12-20 06:19:00 [facility] PT/APTT 2019-12-20 05:06:00 [facility] FIBRINOGEN 2019-12-20 05:06:00 [facility] D-DIMER 2019-12-20 05:06:00 [facility] IRON, TIBC, % SAT. 2019-12-20 05:06:00 [facility] (WITHOUT FERRITIN) [facility] VITAMIN B12 AND FOLATE 2019-12-20 05:06:00 [facility] RETICULOCYTE COUNT 2019-12-20 05:06:00 [facility] HAPTOGLOBIN 2019-12-20 05:06:00 [facility] TSH/FREE T4 IF INDICATED 2019-12-20 05:06:00 [facility] FERRITIN 2019-12-20 05:06:00 [facility] ANTI-NUCLEAR ANTIBODY 2019-12-20 05:06:00 April S[address]ara Carrillo [facility] (ROGER) [facility] KAPPA / LAMBDA LIGHT 2019-12-20 05:06:00 April Sakinara Carrillo [facility], SERUM [facility] PROTEIN ELECTROPHORESIS, 2019-12-20 05:06:00 [facility] Benba l [facility] PERIPHERAL BLOOD SMEAR - 2019-12-20 05:06:00 [facility] PATHOLOGIST REVIEW Medical [facility] r CBC W/PLT COUNT & AUTO 2019-12-20 05:06:00 Marcial Chapa [facility] COMPREHENSIVE METABOLIC 2019-12-20 05:06:00 Marcial Chapa [facility] T4, FREE 2019-12-20 05:06:00 Sakina Chen [facility] ROGER TITER AND PATTERN 2019-12-20 05:06:00 Sakina Chen [facility] POCT-GLUCOSE METER 2019-12-19 20:35:00 Pat Mohamud [facility] POCT-GLUCOSE METER 2019-12-19 16:06:00 [facility] 2019-12-19 16:02:[address] [facility] CBC W/PLT COUNT & AUTO 2019-12-19 05:35:00 Marcial Chapa [facility] BASIC METABOLIC PANEL (7) 2019-12-19 05:35:00 Marcial Chapa [facility] LACTATE DEHYDROGENASE 2019-12-19 05:35:[address] [facility] (LDH) [facility] POCT-GLUCOSE METER 2019-12-19 05:24:00 Cade [facility] POCT-GLUCOSE METER 2019-12-18 21:35:00 Cade [facility] POCT-GLUCOSE METER 2019-12-18 16:05:00 Cade [facility] POCT-GLUCOSE METER 2019-12-18 07:45:00 [facility] POCT-GLUCOSE METER 2019-12-18 06:14:00 Cade [facility] POCT-GLUCOSE METER 2019-12-17 21:44:00 Cade [facility] POCT-GLUCOSE METER 2019-12-17 17:52:00 Cade [facility] POCT-GLUCOSE METER 2019-12-17 12:22:00 Cade [facility] HEMODIALYSIS INPATIENT 2019-12-17 10:33:08 Brandie Khan [facility] POCT-GLUCOSE METER 2019-12-17 06:18:00 Pat Mohamud [facility] CBC W/PLT COUNT & AUTO 2019-12-17 04:14:00 Marcial Chapa [facility] COMPREHENSIVE METABOLIC 2019-12-17 04:13:00 Marcial Chapa [facility] PANEL [facility] POCT-GLUCOSE METER 2019-12-16 20:55:00 Pat [facility]ud[facility] POCT-GLUCOSE METER 2019-12-16 18:24:00 Pat [facility]udEl [facility] HEPATITIS B SURFACE 2019-12-16 16:02:[facility] HEPATITIS B SURFACE 2019-12-16 16:02:00 [facility] ANTIGEN [facility] HEPATITIS C ANTIBODY 2019-12-16 16:02:00 [facility] HEPATITIS B CORE 2019-12-16 16:02:00 [facility] es - ANTIBODY, TOTAL [facility] POCT-GLUCOSE METER 2019-12-16 14:47:00 Pat [facility]udEl [facility] IR TUNNELED DIALYSIS 2019-12-16 14:26:00 Sharri Fernando [facility] CATHETER [facility] HEMODIALYSIS INPATIENT 2019-12-16 12:37:39 Bill [facility] POCT-GLUCOSE METER 2019-12-16 11:01:00 Pat [facility]ud[facility] XR CHEST 1 VIEW 2019-12-16 05:55:00 Marcial Chapa [facility] PORTABLE/BEDSIDE [facility] POCT-GLUCOSE METER 2019-12-16 05:51:00 Pat Mohamud [facility] CBC W/PLT COUNT & AUTO 2019-12-16 04:08:00 Marcial Chapa [facility] BASIC METABOLIC PANEL (7) 2019-12-16 04:08:00 Marcial Chapa [facility] PROTHROMBIN TIME/INR 2019-12-16 04:08:00 Marcial Chapa [facility] SARS-COV2/RT-PCR ([facility] & 2019-12-16 01:45:00 Pat Mohamud [facility] - REF LABS) [facility] Plan of Care Planned Activity Planned Date Details Comments Source Future Scheduled 2020-12-[address] [facility] - Test 00:00:00 examination [place] [facility]ime[facility]therapy[facility] [code = 370687899] Future Scheduled 2020-12-[address] [facility] 00:00:00 malignant neoplasm of [facility] colon (procedure) [code = 205320701] Future Scheduled 2020-11-29 INFLUENZA VACCINE (#1) [facility]:00 [code = INFLUENZA Medical Ce nter VACCINE (#1)] Future Scheduled 2020-03-[address] [facility] - Test 00:00:00 (12+) [code = [facility] DEPRESSION SCREENING (12+)] Future Scheduled 2020-03-31 FALLS RISK SCREENING [facility] Test 00:00:00 [code = FALLS RISK Medical C enter SCREENING] Future Scheduled 2020 PNEUMOCOCCAL 65+ YRS [facility] - Test 00:00:00 (1 of 1 - [facility] [id number] PCV13) [code = PNEUMOCOCCAL 65+ YRS (1 of 1 - [id number]_Msruksh PCV13)] Future Scheduled 2017-11-[address] [facility] Test 00:00:00 measurement [facility] (procedure) [code = 13394464] Future Scheduled 2005 SHINGLES VACCINES ([address] [facility] - Test 00:00:00 of 2) [code = SHINGLES Medic sc Center VACCINES (1 of 2)] Future Scheduled [address] [facility] 00:[facility] (procedure) [code = Medical Center 24147503] Future Scheduled [address] [facility] Test 00:00:00 malignant neoplasm of [facility] cervix (procedure) [code = 317569937] Future Scheduled 1974 DTAP/TDAP/TD VACCINES [facility] I [...] 00:00:00 protein (procedure) [facility] Center [code = 652645096] Future Scheduled [address] [facility] 00:00:[facility] breast (procedure) [code = 795360285] Encounters Start End Encounter Admission Attending Care Care Encounter Source Date/Time Date/Time Type Type Clinicians Facility Department ID 2020-03-28 2020-03-29 Emergency Babatunde Chato [facility] [id number] 15:50:00 20:31:00 Maureen Terrazas [id number] [place] [id number] [place] [id number] 2018-11-17 2018-11-17 [facility] [id number] 11:30[facility]00 11:30[facility]00 [facility] 2018-10-06 2018-10-06 [facility] [id number] 16:14:00 16:14:00 [facility] Outpat[facility] ent Clinics 2018-09-28 2018-09-28 [facility] [id number] 10:30:00 10:30:00 [facility] Results Test Description Test Time Test Comments Results Result Comments Source ANAEROBIC CULTURE 2020-01-04 10:26:00 Test Item Value Reference Range Interpretation Comme nts CULTURE (BEAKER) (test code = 1095) No anaerobes isolated Tissue [id number] 10:21:00 Test Item Value Reference Range Interpretation Comments Case Report (test code Surgical Pathology = 104) Report Case: [id number] Authorizing Provider: Tala Santacruz DPM Collected: 12/30/2019 01:38 PM Ordering Location: [address] Med/Surg Received: 12/31/2019 06:52 AM Pathologist: Jovita Griffith MD Specimens: A) - Soft Tissue, Other, left 5th proximal phalanx B) - Metatarsal, Left, left 5th metatarsal DIAGNOSIS (test code = [id number] 3220) FuZzEwMzNcZnRuYmpcdWMx IDmrnqYsMOrwd1XwM4LmWj AwMFxhbnNpXGRlZmxhbmcx MXCpVZX0kkLyNMBzDDbmDP FvOOuyEm6onYRooQxsGzTs FLPxh4kkmqRNvnznmUi6j1 tvZGPlEuX3xBTnIKnaQ2xo okXbxFAmOUMmBNt1pI70DM XzuL7lrAFnBBmmlxZyReS6 BTqrHZIdFbQ8OARisSWmKE KfP7gvJINbTRkvTFKgQMuz iKClDAM5pPldl2H8jEAcyV LwrNyqXtXxWqOyGFECd8Iq WBy4hYbjN8LpCYQuNeA3wZ QgUGFyYWdyYXBoIEZvbnQ7 cD53OHyglaG5gZDre4Sie9 4qv251jX1naVPlBSU4DNHp DEVuqFKnRNCvFSB5RJVcjY XeM5d8IqQnuCNzP2Y8WsBh hGMzO6L8EqPugFMbH8U5Jn GhoSXmWCAjoMDmMt8jlBUe wTQtuc2wmv68WEW5v9PkkT mdCQJ5NMT7BdNxLf2hcUEk RSBxPN2aXyEekNUcRAJgps 58uIzoFUckbtAivZ8pUsLy LZEznVOsGVOpTN9fuTExRT BiqL6mezfnHTPbNeAhdtgh NUUqkJxeacOqBj8avTetDY I1NPsoY9ivhS8gCoL7BZuh N0jweF3cFSs4WEkdxHR4AB SqjQ4wZH1qwzchw8jcZxBn FL6bvsedm6wcQeUqHE8qao l7i3bsOaQkUH9alxsyp1sb NzIwXGhlYWRlcnkwXGZvb3 SkparhNASgk7EiH2EpmBpx S10nbUgbQ13mFVUbwQwwbR 4kuBkkfP7eNhLcMrKuYYpf bFxwbGFpblxmMVxmczIwXG nsktslWCZcHBedA1juFbGj RDJwwKsrYQmke6XjWXUjBF EgAwJmRQ3mHm3FVNsaWBYJ IKFDHZTGERALJk3SNN9CJI HCVWRZVX1MUVFOPQ6JB2u6 ULPjwwCcKMYtYIIIIH4sN1 mIVAEUTtKMBsiCST7EUIFA UlRJTEFHRSBXSVRIIFNVUl TSMH0IBG7VLTIFFWUZWPBM RCBDSFJPTklDIElORkxBTU 1BVElPTlxwYXJccGFyIEIu IEJPTkUsIExFRlQgRklGVE ggTUVUQVRBUlNBTCwgQklP UFNZOlxwYXIgICAgLSBBQ1 OZWXXCG0YWY65TFTkGOQuX IFxwYXIgICAgLSBTRVBBUk IGJWVZScYXTMVJMROkW7Vv XqpEPq4FA64UWONLLVNVER XKE1LVUXJPOXKIHBQYC3JQ B3KyIF5UM0ACZ6lRDHHKPW BHUkFOVUxBVElPTiBUSVNT TEIxXa0XFXBZGQ1MITMoau 97EHT2GlPkm2E8VDI0RTAl GXWzi7qjDJGrsHZtWgUbPk NcZnRuYmpcdWMxXGRlZmYw w6qtd344uCGzv9pxDFMdGf B0tCWcYKLgdMVmL991HOTa UTtaz9ngr1JiERLvoKAqa2 N6HSZBbukkvMm9pKpoZ14b n2X6YhycQ5anNGQrWBRiD8 MuGC7oKQFwPsp5PJA5WKI6 VAStHCXoX5FlIL0jDJYnnQ GvHGh2x3rheRkpOLAoZJD2 i4wfVDhmxvKkAQ4afy6ujS m8p2mgamJtCSZrCGNnyFTS BWLjF6NscDsyOd5hzFk4zC mvDnjvRCZ7Gyt3XK9ycg28 yrp9iQjrAPXpmeabBqH1RR zmANEjgqdnJRe8RAfhXPRz tVY5CRYwsKFnH0PpELLuNA 1fydi4JHE1BXjvLBYkHlE8 NDBcaGVhZGVyeTcyMFxmb2 94KVA7MiYzXG8pC6Ace1U4 cQ0mlEEcWTVjyKZuWeYgEV Scoc4rfQXgMLuzm1VgKMJ7 uwB2pWAfnCIkBAZdSnX4IN xlPT6wvt16CEPnJEK6kn8r bGNccGdicmRyaGVhZFxwZ2 QwPYYdc845BYAfI6BaGWXx f6P9mmWhPjKfFPNkzPB4po U2CVLgUP8aksums2gdWRav GMhxQKHnjtT9quS1JGCfrZ YxW2IfyD2kEILtKX7oedph k3quFRT1CYyfTUXxVLN0Og HaVXIfz9Udrlr9IrJny3Hr bMYsYCbwA03rf704BFRbnc ZwL7ockQXtcbfjpLMvpecy AAyrhkD2XKPkYAprkzrcPM FwBIjgL2ujRuIiJSZeaIhc HDjoe4SsNMQmVIQoYpQitD IcOTGoVjr1XWBcmTHpJBNd ImLoU7svpphyMdUNDOFza9 uzZ5czqSFLgECyW6FmZJhv ayRnFJgdSPcaHCF6HLV8Mg 96HwP8UTSrzr11 CPT Code(s) (test code b3gaxOTpDAXslYKkJjEwSW = 3357) ZgAUOwa4uhGGLihDVeHzVh MzNcZnRuYmpcdWMxXGRlZm Zim1vbp514yJYud2kfYBLm FkG5nJKfBROghLStN463l0 kdg1lskaYpuTG3PKEzNQR3 OXuuabUupcI3WVuzuWQxUj T1FOyuvdDrAXtuobGoygNp Nql9LVUxU104BEH4sNuwu1 alOPP3ONNwNHTqSnNaRf8g iIQxR382SHZqVZELKVBsnS o8MCYnckPgaaGmkZPAi045 A933e7yqPDZmbpNzaIyHap cfa5gpO566MJJqsFVftrMh OsByXELjaNLxzJK7NZUdXD 8jghbqDrLmCJ1mjhfaGkJv NA1dkor4FpVvKV7rifiyWk WeQJtoZGSnuakwPBHni3Fc jxkoKP8jH2Nyv9Z7tH3wcV WuEYFhnEMuWeGkIJUkkv3l iYRcIUevg7DxCCR7lmY0lE SxyDVaZQGtPQ56Ivxxo8Wb WavsYSI1UYXvtxCpk8Vkk7 jtIfLhbaOfE6wiC1TiDZMm PQNyYXGkKcEjtrLzw3Kcq9 FgtBHqqQe9n0rtYAAjUCRv fYkmq2ztODZ5GWPiM0T4wN Ucp0gxYSxmCOTgjMH2imae DDjdYQAswzT2aclnKNplHH NjaGV0cymyENbwLBGmVeW6 idhaFDeuGAZzRKY4OWhwg6 66QCI1ASxvUjodSEwbSBFv bmNvbnRccGduZGVjXHBsYW luXHBsYWluXGYwXGZzMjRc cReeyHzkkA2mKhOlIsVySD toHQ3zFQJlF3rmcIQcRTXj OCRcF1yfNvXuuQ1bhVyaWJ szjpIkIR9RO5A8HOWccqA3 VREmDzS9GdzjTOEvJMebGP EgeDJccGFyfQ== CLINICAL HISTORY (test m3ycpRGyLJJunFYySqXnFY code = 3350) WwOBXag2tmHCJzhYHvPpUi MzNcZnRuYmpcdWMxXGRlZm Rmm5ngt453rMRdl0kpZEPs UtA3lSTeRGRkiPJrN275g3 rct1wtztOokBQ6SSXqVKT8 HOshhjStsdB3KVobrPTlKg V8UHqjupWvEUoozkOvufIa Hva9ALWsK331DYD7oFcro6 nbPLS1YMLoYUNzYwVuDo0b wQXiY569YCEwZDHVYCExsA u9HONbayMdulDqyBRMe708 J116s6djGNBlzwSvjMfGyq lox4qgV224AZRwsRNthoAy TaChOYDzkGZbmPM2JGUwTL 0gmiidWfGeEA5pfvcfHyLq HQ4hdnc8AlGbOS1kayzeMo NwJZbrANGhhgkhACDem5Hl ofstTG4hW7Iwu4V0eF4hfM UkCFGqwRUuDoVeRVVnjk7d dHAwBHwat7WxTSK9wnZ3aQ CecYHaCOSkKW62Zmhqa8Ea QosgFHN4ZXPqytObg3Zcj9 hvCzGuliYvG5cuC8LmYPKt QJFnBAEdZeOrfhCte4Jsc8 WhoLYhoYw1u8niKWSfCGLc nCgcj6ycDPR7NONrR7E1fO Cus2wwWUooZVYwwKJ9wgjj RQpgGTEbynI8xfzvUDhoCC IoeKM5qutbHFxgQWTkKhL2 ecepAHseYZQhLAR7SUgrs7 11DNI8MRbjLomcFDwuJAYi bmNvbnRccGduZGVjXHBsYW luXHBsYWluXGYwXGZzMjRc sYfktUfikM2qDbBnHiBaMV bwHL4hREAlF2dwyBKjOWDl BZXyM0ggGbCaeU6gpWwaED daygEnCT5saQMyiRnbnSz9 aVUso6OgzFUluEQ3dPfsrU Y4WJRfpgEplElddOpeNNJd m9ZnDkdyIFPraoVaVNWeLU RccGFyfQ== SPECIMEN SOURCE (test y7ujeAKrPAMvpSPdIjFgFD code = 3377) BlNOVkz1hlFMFxdDLkXlYu MzNcZnRuYmpcdWMxXGRlZm Cpq9bqj598kBTbm8urMWKt DgP0nSYdUGPgsTZoQ520b2 xvf0zdnaMysKS8JJZmOZB9 TZmbbuBhjuQ5JQbkrDBuJh N5MRqsxsIyXDobrsYglyKi Qkt9JXKoH453XLQ3aWmly8 ovPXG5VXKmZFFsFsFsCv8u bKXrJ435KMRzADMEOWPzkC k1XQGatiItjwYglIYIx570 L486k7ayLGCsgxHolJfQsm juy7ruW578MIHwuSMstyIc SaIeZTPeeVLazZR4XESxQB 2kfrfrPiQyPQ9dktyeHdQx ZA7epet1QoPzGQ6pxgfcGz XuNQegLQQgtfaoGBEpf8Sc uctgGH4uM0Rue1A6hT0izJ LcVXIzzJUtAyHmVSZpku8b nLJxSZtlc6YwNGZ3iiA8vD ZzySTsEVOrIS54Oebxa8Zw HizzZDU9FQCyftUyu0Wro6 zpSiHamjCfR7ztA8VoEGMf QCVmRCGwEsIthmEzp9Lqc9 UgmMCohGf7h9vtYPDbIWLj yPflr6yiJSP9AWPjL1S4iD See4trRUsiCEHgnIS3jfxj EPpoAXEqdwS3akukDBbyAF TpjXC1dkllPXmwGNSpMwN8 wmzfTSwxRZHzWVB1XAsru7 83FYE4LWylRllwIGneXADy bmNvbnRccGduZGVjXHBsYW luXHBsYWluXGYwXGZzMjRc jJjipWawqU3zZiNiJiIdTF amHS1xIXZqZ3jpxAHkLHDz DFQpK6kuRzYydN4euFkcUU xmczIwIEEuIExlZnQgNXRo LWKwk3ivzIToWDCdGHjgiu gnVNVhUAopWfEyPAGmNZ5j mGD8SFPcBUorYVIbbz8= GROSS DESCRIPTION (test p8iflULwKQCzwULxNkEwYW code = 3366) PsIBXmd9kpOXIneOYaVjCd MzNcZnRuYmpcdWMxXGRlZm Cib1ugn839pZAyp7bhDHNy QzH7sZXhZPFgxSFbK052CC OiDPcsb9dmb0YpXOAozOOv g9N7AZCXyxcpcEa6fLbuL6 1yd8M5CydqM7ztRGTbRMOf K6CmVS8eFXNsJgp2IBC3IH J2YBZzMUPvW5LlEQ3aAIKw zPUxFJa4a1troReqGUAgZA O5b3aeFJrtmdHpJF9vwu8h fSv3j3rszwNeEXWqZKDzeK JRRMNuC0DmcSxqAu0efTw0 xOcfXsojMMR5Vpz6VJ3hxo 92mht1aNhyXOCmqyewCkP7 RDilYMBqxprpBTc3ACtjXT JnbDcyMFxtYXJncjcyMFxt YXJndDcyMFxtYXJnYjcyMF wsLUAmKTR8FYcjq780DRU1 VFozk6lym1ysfCBcPwm1BD BsIjMmDblfCXngy6Kox5pt BKYmgf3jCTU6kYCqoCmxc2 Y1hONyPJUiqHKybqTeJRCn EmG2SMwdEZ7rzg68YJHnEJ T3tc7qgYXglVdbvdMlhKTz YAclC7DnIPDfx265NRPxQ1 IxHFYgj0U6hlGqJcTfPOWv cYA4pkL6GADdUSo5gKBgxc W2vsEvwSVuX0mzkO65FwJc zPQfM7FvxS74EzYubVUnC4 ZdoW90XsUhuJDyK4PfxL30 VrZvnQUrNDUibOFqOd1frU ZbqYFtk4LjiKKyLEjfB50l r451YLZhheNpY8tcyOZgie jpjIGffqbbKIalhwH3RRZs XHBsYWluXGYwXGZzMjBcbG FuZzEwMzNcaGljaFxmMFxk EgNjYGDoLMtwC5qrJfTqFl DpJYNHeNJxtN1dtnSEHPqj VPTpZ1XdriTkZDsdAFSulY U7tYVdRDafGdNzQWNzu2s2 uFB4gRQjvDS3bCGuxKzdRR 6ihIIbYS5jAT9qDArrAAag laYjl1OjCX27wJKpsfHaiq QgZGVzaWduYXRlZCBhcyAi s69jiPN0cWFjnARdZN89jH MiNtadS99lx8wppYUpf0Iq n2tedFJqdPAlmD19QFLxvs AhHfOnN53rdmKqED8zJCZ8 cmluZyAwLjcgeCAwLjMgeC CbBkWsM53lQREiOTDfwOHi cE4rtlVcxgXgvQWofWF8HO RmYB61kWClxPgpqA63bwRV QPFkxwAmjY22ghXnRFRfkI Gnk7v4wEpveq9yaAHzAZIa rcUPzYXbmG6wfoXXOWenEI XbD7VholXzLTjzBROkqVA3 oMOhWInqYsQrWLIzw2z2xR P8bWPndCN0aBDbzOwkOL2x nEGzCA0sGX8eRPzlXCtrst Itl5SzYO01zFIgkuEaoxDv ZGVzaWduYXRlZCBhcyAibW H7DUColeUzoAClETE0Pmnw F35rn4zeoNOlm1TgUz55ly NiJAAbThTrd39xhBfwp3Gh MZXbTAAxr81fDMKqIIcwSS 28trMgJRXqqQSvsmumJi1l OTtfQJ46MNdmIS76MGAxXO jmTTRrT5DbE0Z3IN3exLjw IHNwZWNpbWVuIGlzIGVudG mlIPt5PGxspOQjvwfzXPyl czIwXGxhbmcxMDMzXGhpY2 iaZmGkPMPqxGdiWTzrh3Ls ZIMbOPHnGrWvLyTiRF1mVT xxpF7oNASvBEauu95bjDOd q37fGLCrKYgnQACnVAZuEu BcbGFuZzEwMzNcaGljaFxm FPpbBsFgVBHkWVgaK4irSr BcZnMyMCAgTUcvZXdccGFy fQ== MICROSCOPIC DESCRIPTION w1tiySXxRNNodSKlCxHxNR (test code = 3371) JcEXHtk2wmEKRuoZFyNaSh MzNcZnRuYmpcdWMxXGRlZm Hph6nbd172hYZoh2adLTRn AeD2kAByGPQbfRCxJ511j8 yvm4mfaxLmiOA2DMYyRHN6 TAwppbLnvoE7RRsafHXyPg F2QVpbjcEfSKmivuRxfaUf Hbe9WZHxZ765MDB4uImwp5 pmOGU9RREaTSTzAkQbBp0a aCPsL089WRYuEEPMASFryI u0TOAmxwCsmzWbsRHJn687 P215z0uzNLXjzfOqiDxOfh jbf3qlY154IFEscFEthlHm UeDoTEKavEXjxPJ3YUClNZ 9jsypaLuGbJU8hdqnfPiKq WA8xjdc1TkJyQK7kczobYc UkOBtcKHXgibajKCZvm6Gn itbhKE2rF5Lwb7O1xX3cdD CnPMWwoIOkEjAdMMLjas6p vRMpCDjyj7JbNLA8rtY8cJ XinBVnWQSkPY06Cnnif7Pw OvgjFGD9SQDxhbBlr9Sui3 tkCiCcxpEeY6ejO0NfASIt EJDaVBSbEzAytlGdr2Hyx1 WbvZQksXc3p8gcCTLjCPXm jIulg5pjJFV7IDYeW9O0qG Igk3auNNmzTLPdwDB0oihx BLdsYAFiuvQ2uohdFWodQB XxzTL2nawnGKttZLOuZcD2 iwfvHLtiMDFhNOL5HNvxb1 96KOY5VTziByugJWafLZNb bmNvbnRccGduZGVjXHBsYW luXHBsYWluXGYwXGZzMjRc fYxvyLpzmS8eTqOrGvCiJI riFE4bLEDyO2gcrLZoJDQb FNClZ0isEcYbdH1ixMydJW zuoxCyMQOdMt3pTPAtEq0s bWVkLlxwYXJ9 Gross assessment was [facility] performed at ([facility], Department = 2777) of Pathology, [address] [place] [address], Technical component was [facility] performed at ([facility], = 2778) Department of Pathology, [address] [place] [address], Professional component [facility] was performed at ([facility], Department code = 2779) of Pathology, [address] [place] [address], [facility] [id number] 10:21:00Surgical Pathology Report Case: [id number] Authorizing Provider: Tala Santacruz DPM Collected: 12/30/2019 01:38 PM Ordering Location: [address] Med/Surg Received: 12/31/2019 06:52 AM Pathologist: [...] TISSUE FORMATION Signing Pathologist Direct Phone Line: [phone] signed by Jovita Griffith MD on 01/04/2020 at 10:21 AM/[id number] of left 5th metatarsal, ulcer of bilateral [...] entirely B1 and into decal solution. MG/Veronica-B. Performed.[facility], Department of Pathology, [address] [place] [address], [facility], Department of Pathology, [address] [place] [address], [facility], [facility], [address] [place] [address], IBCLMYQBL [id number] 10:47:00 Test Item Value Reference Interpretation Comments [...] negative Staphylococcus SURGICALLY OBTAINED CULTURE + GRAM [id number] 08:31:00 Test Item Value Reference Range Interpretation Comments CULTURE (BEAKER) (test code No growth = 1095) GRAM STAIN RESULT (BEAKER) <1+ WBCs (test code = 1123) GRAM STAIN RESULT (BEAKER) No organisms seen (test code = 77819) SURGICALLY OBTAINED CULTURE + GRAM [id number] 08:19:00 Test Item Value Reference Interpretation Comments Range CULTURE (BEAKER) STENOTROPHOMONAS A 2+ Sten otrophomonas (test code = 1095) MALTOPHILIA maltophil ia Levofloxacin (test S code = 22) Trimethoprim + S Sulfamethoxazole (test code = 47) GRAM STAIN RESULT <1+ WBCs (BEAKER) (test code = 1123) GRAM STAIN RESULT No organisms seen (BEAKER) (test code = 016040) POC-Glucose [id number] 06:47:00 Test Item Value Reference Range Interpretation Comments POC-Glucose Meter (test 102 mg/dL 70-110 : TE STED AT [facility] code = 1538) [address] [facility] [address]: Marble Worker/Techni artemio ID = [id number] for Anne Salgado Lab Interpretation (test Normal code = 69342-6) [facility] [id number] 06:47:00 Test Item Value Reference Range Interpretation Comments POC-GLUCOSE METER 102 mg/dL 70-110 : TESTED A T [facility] 1317 (BEAKER) (test code DUVALL POI NT PKMA, = 1538) [facility] 77 478: Marble Worker/Techni artemio ID = [id number] for Ashley austin [facility] metabolic [id number] 06:34:00 Test Item Value Reference Range Interpretation Comments Protein, Total (test 6.1 See_Comment [Autom ated code = 2885-2) message] The system which generated this result transmit merna reference range : 6.0 - 8.5 gm/dL . The reference range was not u sed to interpret th is result as normal/abnormal . Albumin (test code = 2.3 g/dL 3.5-5 L 47202-9) Alkaline Phosphatase 81 U/L 30-115 (test code = 6768-6) Total Bilirubin (test 0.4 mg/dL 0.1-1.2 code = 1975-2) Sodium (test code = 137 meq/L 855-915 5142-2) Potassium (test code 3.7 meq/L 3.6-5.5 = 2823-3) Chloride (test code = 100 meq/L 98-106 2075-0) CO2 (test code = 28 meq/L 20-29 2027-9) BUN (test code = 14 mg/dL 10-26 3094-0) Creatinine (test code 2.31 mg/dL 0.5-1.2 H = 2160-0) Glucose (test code = 100 mg/dL 70-110 2345-7) Calcium (test code = 7.5 mg/dL 8.5-10.5 L 03715-3) AST (test code = 15 U/L 5-40 1920-8) ALT (test code = 6 U/L 5-50 1742-6) EGFR (test code = 21 mL/min/1[place]73 [place] [address]-5) NOT ACCURATE CREATININE CLEARANCE IN PREDICTING GLOMERULAR FILTRATION RATE . ESTIMATED GFR I S NOT APPLICABLE FOR DIALYSIS PATIEN TS. ZIA (test code = ZIA) Marble Worker ID - ADMIN Lab Interpretation Abnormal (test code = 22997-6) [facility] MET[facility]OLIC [id number] 06:34:00 Test Item Value Reference Range Interpretation [...] S NOT APPLICABLE FOR DIALYSIS PATIEN TS. Marble Worker ID - ADMINCBC with platelet count + automated [id number] 06:06:00 Test Item Value Reference Range Interpretation Comments WBC (test code = 6690-2) 5.7 See_Comment [A utomated message] The system [employer] generated this result transmitted ref erence range: 4.0 - 10 .0 K/L. The refe rence range was not u sed to interpret this result as normal/abnor mal. RBC (test code = 789-8) 2.41 See_Comment L [Au tomated message] The system [employer] generated this result transmitted ref erence range: 4.00 - 5 .00 M/L. The refe rence range was not u sed to interpret this result as normal/abnor mal. MCHC (test code = 786-4) 30.8 See_Comment L [A utomated message] The system [employer] generated this result transmitted ref erence range: [...] L [Aut omated message] 777-3) The system [employer] generated this result transmitted ref erence range: 150 - 43 0 K/CU MM. The referen ce range was not u sed to interpret this result as normal/abnor mal. MPV (test code = 10.5 fL 6-11.5 47369-9) nRBC (test code = 413) 0 See_Comment [Aut omated message] The system [employer] generated this result transmitted ref erence range: [...] See_Comment [Aut omated message] 670) The system [employer] generated this result transmitted ref erence range: 1.80 - 8 .00 K/L. The refe rence range was not u sed to interpret this result as normal/abnor mal. # Lymphs (test code = 1.66 See_Comment [Auto mated message] 414) The system [employer] generated this result transmitted ref erence range: 1.48 - 4 .50 K/L. The refe rence range was not u sed to interpret this result as normal/abnor mal. # Monos (test code = 0.28 See_Comment [Autom ated message] 415) The system [employer] generated this result transmitted ref erence range: 0.00 - 1 .30 K/L. The refe rence range was not u sed to interpret this result as normal/abnor mal. # Eos (test code = 416) 0.12 See_Comment [Au tomated message] The system [employer] generated this result transmitted ref erence range: 0.00 - 0 .50 K/L. The refe rence range was not u sed to interpret this result as normal/abnor mal. # Baso (test code = 417) 0.07 See_Comment [A utomated message] The system [employer] generated this result transmitted ref erence range: 0.00 - 0 .20 K/L. The refe rence range was not u sed to interpret this result as normal/abnor mal. Immature 0 % 0-0 Granulocytes-Relative (test code = 2801) Lab Interpretation (test Abnormal code = 59717-4) [facility] W/PLT COUNT & AUTO [id number] 06:06:00 Test Item Value Reference Range Interpretation [...] PERCENT (BEAKER) (test code = 2801) POCT-GLUCOSE [id number] 21:02:00 Test Item Value Reference Range Interpretation Comments POC-GLUCOSE METER 167 mg/dL 70-110 H : TESTED A T [address] (BEAKER) (test code [address], = 1538) [place] [address]: Marble Worker/Techni artemio ID = [id number] for Anne Busby POCT-GLUCOSE [id number] 18:12:00 Test Item Value Reference Range Interpretation Comments POC-GLUCOSE METER 121 mg/dL 70-110 H : TESTED A T [address] (BEAKER) (test code [address], = 1538) [place] [address]: Marble Worker/Techni artemio ID = [id number] for Oneida glynnvera Aydinrianar POCT-GLUCOSE [id number] 11:54:00 Test Item Value Reference Range Interpretation Comments POC-GLUCOSE METER 117 mg/dL 70-110 H : TESTED A T [address] (BEAKER) (test code [address], = 1538) [place] [address]: Marble Worker/Techni artemio ID = [id number] for Aydin Coheninor COMPREHENSIVE METABOLIC [id number] 06:47:00 Test Item Value Reference Range Interpretation [...] S NOT APPLICABLE FOR DIALYSIS PATIEN TS. Marble Worker ID - [id number] 06:42:00 Test Item Value Reference Range Interpretation Comments Magnesium (test code = 1.6 mg/dL 1.5-3 33708-4) ZIA (test code = ZIA) Marble Worker ID - ADMIN Lab Interpretation (test Normal code = 30393-3) [facility] [id number] 06:42:00 Test Item Value Reference Range Interpretation Comments POC-GLUCOSE METER 101 mg/dL 70-110 : TESTED A T [address] (BEAKER) (test code [facility] [address], = [address]) [facility] [place] [address]: Marble Worker/Techni artemio ID = [id number] for Anne Busby [id number] 06:42:00 Test Item Value Reference Range Interpretation Comments MAGNESIUM (BEAKER) (test code = 1.6 mg/dL 1.5-3.0 627) Marble Worker ID - ADMINCBC W/PLT COUNT & AUTO [id number] 06:37:00 Test Item Value Reference Range Interpretation [...] PERCENT (BEAKER) (test code = 2801) POCT-GLUCOSE [id number] 20:24:00 Test Item Value Reference Range Interpretation Comments POC-GLUCOSE METER 155 mg/dL 70-110 H : TESTED A T [address] (BEAKER) (test code [facility] [address], = [address]) [facility] [address]: Marble Worker/Techni artemio ID = [id number] for Anne Busby POCT-GLUCOSE [id number] 16:39:00 Test Item Value Reference Range Interpretation Comments POC-GLUCOSE METER 164 mg/dL 70-110 H : Notified RN/MD: TESTED (ROBERT) (test code AT [facility] [address] = [address]) [place] [address]: Marble Worker/Techni artemio ID = [id number] for Alondra Kelley SARS-CoV2/RT-PCR (Asymptomatic ONLY)2019-12-30 15:57:00 Test Item Value Reference Range Interpretation Comments SARS-COV2/RT-PCR Negative Not Detected, (test code = Negative, See 11073-7) external report for linked test [facility]COV-2 [facility] (test code = 82140-8) ZIA (test code = Negative result for [...] of the Act. Fact Sheet for Healthcare Providers:https://www.[employer]/sites/default/f loco/product/documents/F act_Sheet_HC_Providers_L bgh_BHXS-QtI-2.pdf Fact Sheet for Healthcare Patients:https://www.Meta/sites/default/fi les/product/documents/Fa ct_Sheet_Patients_Lyra_S ARS-CoV-2.pdf Performing Laboratory:[facility], [place] [address] [place], [place] [address]ARS-COV2/RT-PCR ([facility])2019-12-30 15:57:00 Test Item Value Reference Range Interpretation Comments SARS-COV2/RT-PCR (test Negative Not Detected, Negative, code = 6642977) See external report for linked test SARS-COV-2 PERFORMING LAB [facility] JANET (test code = 9941075) Negative result for this test determines that [...] 564(g) of the Act.Fact Sheet for Healthcare Providers:https://www.[employer]/sites/default/files/product/documents/Fact_Troy ortizl_OE_Qitciogeq_Fmuf_GPAO-KzA-9.pdfFact Sheet for Healthcare Patients:https://www.[employer]/sites/default/files/product/ documents/Ubvv_Nkmxq_Dithoxrg_Odnx_JYGN-KzP-0.pdfPerforming Laboratory:[facility], [place] [address]AEOD-QLITTVV METER 2019-12-30 11:50:00 Test Item Value Reference Range Interpretation Comments POC-GLUCOSE METER 82 mg/dL 70-110 : Notified RN/MD: TESTED (BEAKER) (test code = AT [facility] [address]) [place] [address]: Marble Worker/Techni artemio ID = [id number] for Moshe Alondra kim WOUND CULTURE + GRAM [id number] 10:45:00 Test Item Value Reference Interpretation Comments [...] gram negative (BEAKER) (test code rods = 107966) POCT-GLUCOSE [id number] 05:50:00 Test Item Value Reference Range Interpretation Comments POC-GLUCOSE METER 103 mg/dL 70-110 : Notified RN/MD: TESTED (BEAKER) ([facility] [address] [address] = [address]) [place] [address]: Marble Worker/Techni artemio ID = [id number] for Zonia Healy COMPREHENSIVE METABOLIC [id number] 05:44:00 Test Item Value Reference Range Interpretation [...] S NOT APPLICABLE FOR DIALYSIS PATIEN TS. Marble Worker ID - ADMINCBC W/PLT COUNT & AUTO [id number] 05:29:00 Test Item Value Reference Range Interpretation [...] PERCENT (BEAKER) (test code = 2801) POCT-GLUCOSE [id number] 21:21:00 Test Item Value Reference Range Interpretation Comments POC-GLUCOSE METER 185 mg/dL 70-110 H : Notified RN/MD: TESTED (BEAKER) (test code AT [address] PO[address] = 1538) [facility] [address]: Marble Worker/Techni artemio ID = [id number] for Zonia Healy POCT-GLUCOSE [id number] 11:21:00 Test Item Value Reference Range Interpretation Comments POC-GLUCOSE METER 143 mg/dL 70-110 H : Notified RN/MD: TESTED (BEAKER) (test code AT [address] = 1538) [place] [address]: Marble Worker/Techni artemio ID = [id number] for Alondra Kelley COMPREHENSIVE METABOLIC [id number] 06:27:00 Test Item Value Reference Range Interpretation [...] S NOT APPLICABLE FOR DIALYSIS PATIEN TS. Marble Worker ID - ADMINPOCT-GLUCOSE [id number] 06:21:00 Test Item Value Reference Range Interpretation Comments POC-GLUCOSE METER 73 mg/dL 70-110 : Notified RN/MD: TESTED (BEAKER) (test code = AT SLS L [address] [place] [address]: Marble Worker/Techni artemio ID = [id number] for Zonia Healy CBC W/PLT COUNT & AUTO [id number] 06:00:00 Test Item Value Reference Range Interpretation [...] PERCENT (BEAKER) (test code = 2801) POCT-GLUCOSE [id number] 20:48:00 Test Item Value Reference Range Interpretation Comments POC-GLUCOSE METER 84 mg/dL 70-110 : Notified RN/MD: TESTED (BEAKER) (test code = AT SLS L [address]) [place] [id number]: Marble Worker/Techni artemio ID = [id number] for Zonia Healy POCT-GLUCOSE [id number] 17:51:00 Test Item Value Reference Range Interpretation Comments POC-GLUCOSE METER 59 mg/dL 70-110 L : TESTED A T [facility]SL 1317 ([facility]) (test code = [address] [facility], 153) [place] [address]: Marble Worker/Techni artemio ID = [id number] for Christina r, Berta POCT-GLUCOSE [id number] 13:28:00 Test Item Value Reference Range Interpretation Comments POC-GLUCOSE METER 67 mg/dL 70-110 L : TESTED A T SLSL 1317 (BEAKER) (test code = [address] [facility] [place] [address]: Marble Worker/Techni artemio ID = [id number] for Christina r, Berta POCT-GLUCOSE [id number] 06:04:00 Test Item Value Reference Range Interpretation Comments POC-GLUCOSE METER 94 mg/dL 70-110 : TESTED A T SLSL 1317 (BEAKER) (test code = [address] [facility] [place] [address]: Marble Worker/Techni artemio ID = [id number] for Anahi Sherman COMPREHENSIVE METABOLIC [id number] 05:35:00 Test Item Value Reference Range Interpretation [...] S NOT APPLICABLE FOR DIALYSIS PATIEN TS. Marble Worker ID - ADMINCBC W/PLT COUNT & AUTO [id number] 04:56:00 Test Item Value Reference Range Interpretation [...] PERCENT (BEAKER) (test code = 2801) POCT-GLUCOSE [id number] 20:43:00 Test Item Value Reference Range Interpretation Comments POC-GLUCOSE METER 137 mg/dL 70-110 H : TESTED A T SLSL 1317 (BEAKER) (test code [facility] [address], = [address]) [facility] [address]: Marble Worker/Techni artemio ID = [id number] for Anahi Sherman MR, EXTREMITY, LOWER, WITHOUT CONTRAST, [id number] 16:55:00MRI LEFT FOOT.Unlisted Reason for Exam - [...] MDReport Verified Date/Time: 12/27/2019 16:55:07 Reading Location: [facility] Radiology Reading Room MR lower extremity without IV contrast left [id number] 16:55:00Interface, External Ris In - 12/27/2019 4:57 [...] Ring Verified Date/Time: 12/27/2019 16:55:07 Reading Location: [facility] Radiology Reading Room Electronically signed by: Adrienne CHU 12/27/2019 04:55 [facility] [id number] 14:19:00 Test Item Value Reference Range Interpretation Comments POC-GLUCOSE METER 232 mg/dL 70-110 H : TESTED A T [facility] 1317 (BEDANIELA) (test code [address], = 1538) [facility] [address]: Marble Worker/Techni artemio ID = [id number] for Berta Servin CT, CTA AAA, W/ GÓMEZ.EXT.[id number] 11:38:00Bilateral lower extremities Addendum BeginsREPORT STATUS:A I agree with the nonvascular findings with exceptions and emphasis as below:*Moderate right and small left pleural effusions are partially visualized.*Large volume ascites.*Diffuse anasarca*The reflux of contrast into the hepatic veins is concerning for volume overload. Signed: Molly Linares MDReport Verified Date/Time: 12/27/2019 11:38:28 Reading Location: [facility] Diagnostic Imaging Reading Room - [address] angiography of the abdominal aorta and runoff, 26-Dec-19 INDICATION: This is a 64 year old female with with lower leg penetrating trauma presents for assessment. TECHNIQUE: Spiral acquisition before and during intravenous contrast administration using a [place] multidetector CT scanner. Images were obtained before [...] identified. However, significant calcification identified of the [place] left SFA, for example at image 516, [...] the right popliteal artery is patent, with fbgn-eo-sbvggxaz diffuse calcification identified with no obstructive lesion [...] However, in the distal left SFA, the [place] artery substantial calcification identified and the stent [...] atherosclerosis identified. 4. In the right, the [place] right SFA is not filled by contrast [...] dictated regarding the non-vascular findings by the Agricultural Extension Specialist Radiologist. Signed: Shlomo Dockery Verified Date/Time: 12/27/2019 07:59:51 Reading Location: [place] [address] [address] Reading Room Protein electrophoresis, serum 2019-12-27 [...] as normal/abnormal . ZIA (test code = Marble Worker ID - ZIA) LEONIE Jay Lab Interpretation Abnormal (test code = 34885-9) [facility] Park[facility]OTEIN ELECTROPHORESIS, [id number] 09:29:00 Test Item Value Reference Range Interpretation [...] chronic inflammatory response. No monoclonal bands detected. [id number] Rocio Galindo MD (BEAKER) (test code = (electronic signature) 2616) PROTEIN TOTAL SERUM, 6.3 gm/dL 6.0-8.3 SPEP (BEAKER) (test code = 2660) Marble Worker ID - LEONIE FCTA AAA and [id number] 07:59:00Interface, External Ris In - 12/27/2019 11:40 AM CDTAddendum BeginsREPORT STATUS:A I agree with the nonvascular findings with exceptions and emphasis as below:*Moderate right andsmall left pleural effusions are partially visualized.*Large volume ascites.*Diffuse anasarca*The reflux of contrast into the hepatic veins is concerning for volume overload. Signed: Molly Linares MDReport Verified Date/Time: 12/27/2019 11:38:28 Reading Location: [facility] Diagnostic Imaging Reading Room - [place] [address] [address] CT angiography of the [...] identified. However, significant calcification identified of the [place] left SFA, for example at image 516, [...] the right popliteal artery is patent, with gwci-jz-jqspxfel diffuse calcification identified with no obstructive lesion [...] However, in the distal left SFA, the [place] artery substantial calcification identified and the stent [...] atherosclerosis identified. 4. In the right, the [place] right SFA is not filled by contrast [...] dictated regarding the non-vascular findings by the Agricultural Extension Specialist Radiologist. Signed: Shlomo Dockery MDReport Verified Date/Time: 12/27/2019 07:59:51 Reading Location: [facility] P0 CT Reading Room [facility] CampusPO[facility]GLU[facility]SE [id number] 06:56:00 Test Item Value Reference Range Interpretation Comments POC-GLUCOSE METER 39 mg/dL 70-110 LL : Notified RN/MD: TESTED (BEAKER) (test code = AT SLS L [address]) [place] [facility] [address]: Marble Worker/Techni artemio ID = [id number] for Anahi Sherman COMPREHENSIVE METABOLIC [id number] 06:15:00 Test Item Value Reference Range Interpretation [...] S NOT APPLICABLE FOR DIALYSIS PATIEN TS. Marble Worker ID - ADMINPOCT-GLUCOSE [id number] 06:01:00 Test Item Value Reference Range Interpretation Comments POC-GLUCOSE METER 55 mg/dL 70-110 L : Notified RN/MD: TESTED (BEAKER) (test code = AT SLS L [address]) [place] [address]: Marble Worker/Techni artemio ID = [id number] for Anahi Sherman CBC W/PLT COUNT & AUTO [id number] 05:44:00 Test Item Value Reference Range Interpretation [...] PERCENT (BEAKER) (test code = 2801) POCT-GLUCOSE [id number] 21:03:00 Test Item Value Reference Range Interpretation Comments POC-GLUCOSE METER 278 mg/dL 70-110 H : Notified RN/MD: TESTED ([facility]) (test code AT [facility] [address] = 1538) [place] [address]: Marble Worker/Techni artemio ID = [id number] for Anahi Sherman POCT-GLUCOSE [id number] 16:53:00 Test Item Value Reference Range Interpretation Comments POC-GLUCOSE METER 70 mg/dL 70-110 : TESTED A T [facility] 1317 ([facility]) (test code = [address] [facility], 153) [place] [address]: Marble Worker/Techni artemio ID = [id number] for Nalini Jean Baptiste POCT-GLUCOSE [id number] 12:11:00 Test Item Value Reference Range Interpretation Comments POC-GLUCOSE METER 97 mg/dL 70-110 : [facility] (test code = [address] [facility], 153) [place] [address]: Marble Worker/Techni artemio ID = [id number] for Akhil hurtado, Rachelleea POCT-GLUCOSE [id number] 06:21:00 Test Item Value Reference Range Interpretation Comments POC-GLUCOSE METER 71 mg/dL 70-110 : [facility] ([facility]) (test code = [address] [facility], 153) [place] [address]: Marble Worker/Techni artemio ID = [id number] for Holly Alamo COMPREHENSIVE METABOLIC [id number] 05:50:00 Test Item Value Reference Range Interpretation [...] S NOT APPLICABLE FOR DIALYSIS PATIEN TS. Marble Worker ID - ADMINCBC W/PLT COUNT & AUTO [id number] 05:17:00 Test Item Value Reference Range Interpretation [...] (BEAKER) (test code = 2801) Prepare Leuko-Red [id number] 23:54:00 Test Item Value Reference Range Interpretation Comments CROSSMATCH (test code = 2264) COMPATIBLE Unit ABO (test code = O Pos 5812207) UNIT NUMBER (test code = [id number] 934-0) Status (test code = 1732307) TX_TIMEINCHART Blood Bank Product (test code RED BLOOD CELLS = 2263) PRODUCT CODE (test code = O1842D07 933-2) [facility] ParkPO[facility]SE [id number] 21:03:00 Test Item Value Reference Range Interpretation Comments POC-GLUCOSE METER 87 mg/dL 70-110 : TESTED A T [address]SL [address] (BEAKER) (test code = [address]) [place] [address]: Marble Worker/Techni artemio ID = [id number] for Kolby Alamol POCT-GLUCOSE [id number] 17:12:00 Test Item Value Reference Range Interpretation Comments POC-GLUCOSE METER 79 mg/dL 70-110 : TESTED A T SLSL [address] (BEAKER) (test code = [address]) [place] [address]: Marble Worker/Techni artemio ID = [id number] for Nalini Jean Baptiste POCT-GLUCOSE [id number] 11:37:00 Test Item Value Reference Range Interpretation Comments POC-GLUCOSE METER 262 mg/dL 70-110 H : TESTED A T [address]SL [address] (BEAKER) (test code [address], = [address]) [place] [address]: Marble Worker/Techni artemio ID = [id number] for Nalini Jean Baptiste COMPREHENSIVE METABOLIC [id number] 06:29:00 Test Item Value Reference Range Interpretation [...] S NOT APPLICABLE FOR DIALYSIS PATIEN TS. Marble Worker ID - ADMINCBC W/PLT COUNT & AUTO [id number] 06:12:00 Test Item Value Reference Range Interpretation [...] PERCENT (BEAKER) (test code = 2801) POCT-GLUCOSE [id number] 06:09:00 Test Item Value Reference Range Interpretation Comments POC-GLUCOSE METER 83 mg/dL 70-110 : Notified RN/MD: TESTED (BEAKER) (test code = AT [facility] L [address]) [facility] [address]: Marble Worker/Techni artemio ID = [id number] for Anahi Sherman POCT-GLUCOSE [id number] 16:26:00 Test Item Value Reference Range Interpretation Comments POC-GLUCOSE METER 182 mg/dL 70-110 H : Notified RN/MD: TESTED (BEAKER) (test code AT [facility] [address] = 1538) [place] [address]: Marble Worker/Techni artemio ID = [id number] for Alondra Kelley, [id number] 09:17:00 Test Item Value Reference Range Interpretation Comments Rh Factor (test code = POS 2589) ABO Grouping (test code O PINK TOP 12/24/19 @ 0824 = 2588) [facility] ParkType and screen, [id number] 07:31:00 Test Item Value Reference Range Interpretation Comments ABO/RH AUTOMATED (BEAKER) (test O POSITIVE ECHO code = 2260) Ab Scrn (test code = 890-4) NEGATIVE ECHO [facility] [id number] 06:42:00 Test Item Value Reference Range Interpretation [...] S NOT APPLICABLE FOR DIALYSIS PATIEN TS. Marble Worker ID - ADMINPOCT-GLUCOSE [id number] 06:23:00 Test Item Value Reference Range Interpretation Comments POC-GLUCOSE METER 88 mg/dL 70-110 : TESTED A T [address]SL [address] (BEAKER) (test code = [address]) [facility] [place] [address]: Marble Worker/Techni artemio ID = [id number] for Anne Busby CBC W/PLT COUNT & AUTO [id number] 06:23:00 Test Item Value Reference Range Interpretation [...] PERCENT (BEAKER) (test code = 2801) POCT-GLUCOSE [id number] 21:38:00 Test Item Value Reference Range Interpretation Comments POC-GLUCOSE METER 126 mg/dL 70-110 H : TESTED A T SLSL 1317 (BEAKER) (test code [address] [facility], = 1538) [facility] [address]: Marble Worker/Techni artemio ID = [id number] for Anne Busby POCT-GLUCOSE [id number] 16:54:00 Test Item Value Reference Range Interpretation Comments POC-GLUCOSE METER 89 mg/dL 70-110 : Notified RN/MD: TESTED (BEAKER) (test code = AT SLS L [address]) [facility], [facility] [address]: Marble Worker/Techni artemio ID = [id number] for Alondra Kelley MR, EXTREMITY, LOWER, JOINT, WITHOUT CONTRAST, [id number] 16:10:00Unlisted Reason for Exam - Click Yes [...] MDReport Verified Date/Time: 12/23/2019 16:10:32 Reading Location: [facility] C013X Ortho Consult Reading Room MR lower extremity joint only without IV contrast left [id number] 16:10:00Interface, External Ris In - 12/23/2019 4:12 [...] MDReport Verified Date/Time: 12/23/2019 16:10:32 Reading Location: [facility] C013X [facility] WITHOUT [id number] 15:43:00Unlisted Reason for Exam - Click Yes [...] Date/Time: 12/23/2019 15:43:24 MR brain without IV [id number] 15:43:00Interface, External Ris In - 12/23/2019 3:45 [...] Signed: Berta Muniz Verified Date/Time: 12/23/2019 15:43:24 [facility])2019-12-23 14:16:00 Test Item Value Reference Range Interpretation Comments SARS-COV2/RT-PCR (test Negative Not Detected, Negative, code = 2085058) See external report for linked test SARS-COV-2 PERFORMING LAB [facility] JANET (test code = 1643841) Negative result for this test determines that [...] 564(g) of the Act.Fact Sheet for Healthcare Providers:https://www.[employer].com/sites/default/files/product/documents/Fact_Shee m_WZ_Quzzicggp_Vjmf_CDMN-QyB-7.pdfFact Sheet for Healthcare Patients:https://www.[employer].com/sites/default/files/product/ documents/Mfll_Wdlpt_Ftvjexgi_Fehs_EXXW-EmK-8.pdfPerforming Laboratory:[facility], [place] [address]Zljip / lambda light chains, [id number] 12:25:00 Test Item Value Reference Interpretation Comments Range [place] Lt Chain,Free 474.4 mg/L 3.3-19.4 H (test code = 36020-9) Lambda Lt 225.6 mg/L 5.7-26.3 H Chain,Free (test code = 79874-8) [place]/Lambda,Free 2.1 0.26-1.65 H Free annabelle a/lambda (test [...] (test code = Performing Lab ZIA) [employer] [facility] [address] [place] [address] Jaguar Stein MD, PhD, CORI Lab Interpretation Abnormal (test code = 97907-1) [facility] ParkPOCT-GLUCOSE [id number] 11:27:00 Test Item Value Reference Range Interpretation Comments POC-GLUCOSE METER 189 mg/dL 70-110 H : Notified RN/MD: TESTED ([place]) (test code AT [facility] [address] [place] [address] = 1538) [facility] [address]: Marble Worker/Techni artemio ID = [id number] for Repa julio, Alondra ARTERIAL DOPPLER LEGS, [id number] 11:22:00Reason for exam:->non healing ulcer , non [...] MDReport Verified Date/Time: 12/23/2019 11:22:31 Reading Location: [facility] Radiology Reading Room Arterial Doppler Legs [id number] 11:22:00 Interface, External Ris In - 12/23/2019 [...] MDRtieraort Verified Date/Time: 12/23/2019 11:22:31 Reading Location: [facility] Radiology Reading Room [facility] CampusCOMPREHENSIVE METABOLIC [id number] 04:44:00 Test Item Value Reference Range Interpretation [...] S NOT APPLICABLE FOR DIALYSIS PATIEN TS. Marble Worker ID - ADMINCBC W/PLT COUNT & AUTO [id number] 04:35:00 Test Item Value Reference Range Interpretation [...] H PERCENT (BEAKER) (test code = 2801) [id number] 04:29:00 Test Item Value Reference Range Interpretation Comments Ammonia (test code = 36 See_Comment [Autom ated 05329-9) message] The system which generated this result transmit merna reference range : 17 - 80 mol/L . The reference range was not u sed to interpret th is result as normal/abnormal . ZIA (test code = ZIA) Marble Worker ID - ADMIN Lab Interpretation Normal (test code = 74626-6) [facility] ParkAMMONIA2020-09-24 04:29:00 Test Item Value Reference Range Interpretation Comments AMMONIA (BEAKER) (test code = 348) 36 mol/L 17-80 Marble Worker ID - ADMINPOCT-GLUCOSE [id number] 20:45:00 Test Item Value Reference Range Interpretation Comments POC-GLUCOSE METER 95 mg/dL 70-110 : TESTED A T [address]SL [address]17 (BEAKER) (test code = [address]) [place] [address]: Marble Worker/Techni artemio ID = [id number] for Anne Busby POCT-GLUCOSE [id number] 17:08:00 Test Item Value Reference Range Interpretation Comments POC-GLUCOSE METER 107 mg/dL 70-110 : TESTED A T [address]17 (BEAKER) (test code [address], = 1538) [place] [address]: Marble Worker/Techni artemio ID = [id number] for Jordyn Fonseca POCT-GLUCOSE [id number] 11:55:00 Test Item Value Reference Range Interpretation Comments POC-GLUCOSE METER 135 mg/dL 70-110 H : TESTED A T [address]SL [address]17 (BEAKER) (test code [address], = 1538) [place] [address]: Marble Worker/Techni artemio ID = [id number] for Jordyn Fonseca ROGER Titer & [id number] 11:40:00 Test Item Value Reference Range Interpretation Comments ROGER Titer (test code = 93355-0) 1:40 ROGER Pattern (test code = 1781) Speckled [facility] ParkAnti-Nuclear Antibody (ROGER)2019-12-22 11:40:00 Test Item Value Reference Range Interpretation Comments ROGER (test code = 19953-6) Positive Negative A ZIA (test code = ZIA) Test performed by IFA method. Lab Interpretation (test Abnormal code = 51333-0) [facility] ParkANTI-NUCLEAR ANTIBODY (ROGER)2019-12-22 11:40:00 Test Item Value Reference Range Interpretation Comments ANTI-NUCLEAR ANTIBODY (ROGER) (BEAKER) Positive Negative A (test code = 418) Test performed by IFA method.ROGER TITER AND [id number] 11:40:00 Test Item Value Reference Range Interpretation Comments ROGER TITER (BEAKER) (test code = :40 1541) ROGER PATTERN (BEAKER) (test code = Speckled 1781) POCT-GLUCOSE [id number] 06:44:00 Test Item Value Reference Range Interpretation Comments POC-GLUCOSE METER 92 mg/dL 70-110 : TESTED A T [address] (BEAKER) (test code = [address], 15[address]) [facility] [address]: Marble Worker/Techni artemio ID = [id number] for Anne Busby COMPREHENSIVE METABOLIC [id number] 06:35:00 Test Item Value Reference Range Interpretation [...] S NOT APPLICABLE FOR DIALYSIS PATIEN TS. Marble Worker ID - ADMINCBC W/PLT COUNT & AUTO [id number] 06:16:00 Test Item Value Reference Range Interpretation [...] PERCENT (BEAKER) (test code = 2801) POCT-GLUCOSE [id number] 20:38:00 Test Item Value Reference Range Interpretation Comments POC-GLUCOSE METER 85 mg/dL 70-110 : TESTED A T [address] (BEAKER) (test code = [address], 15[address]) [place] [address]: Marble Worker/Techni artemio ID = [id number] for Anne Busby POCT-GLUCOSE [id number] 18:14:00 Test Item Value Reference Range Interpretation Comments POC-GLUCOSE METER 112 mg/dL 70-110 H : TESTED A T [address] [address]17 (BEAKER) (test code [address], = 1538) [place] [address]: Marble Worker/Techni artemio ID = [id number] for Christina r, Berta POCT-GLUCOSE [id number] 13:00:00 Test Item Value Reference Range Interpretation Comments POC-GLUCOSE METER 77 mg/dL 70-110 : TESTED A T [address] [address] (BEAKER) (test code = [address], 15[address]) [place] [address]: Marble Worker/Techni artemio ID = [id number] for Christina r, Berta POCT-GLUCOSE [id number] 07:32:00 Test Item Value Reference Range Interpretation Comments POC-GLUCOSE METER 60 mg/dL 70-110 L : TESTED A T [address] (BEAKER) (test code = [address], 15[address]) [place] [address]: Marble Worker/Techni artemio ID = [id number] for Marissa Page COMPREHENSIVE METABOLIC [id number] 06:11:00 Test Item Value Reference Range Interpretation [...] S NOT APPLICABLE FOR DIALYSIS PATIEN TS. Marble Worker ID - ADMINC-Reactive [id number] 06:06:00 Test Item Value Reference Range Interpretation Comments CRP (test code = 676) 1.63 mg/dL 0-0.5 H ZIA (test code = ZIA) Marble Worker ID - ADMIN Lab Interpretation (test Abnormal code = 66658-7) [facility] ParkC-REACTIVE [id number] 06:06:00 Test Item Value Reference Range Interpretation Comments C-REACTIVE PROTEIN (BEAKER) (test 1.63 mg/dL 0.00-0.50 H code = 676) Marble Worker ID - ADMINPOCT-GLUCOSE [id number] 06:04:00 Test Item Value Reference Range Interpretation Comments POC-GLUCOSE METER 56 mg/dL 70-110 L : Notified RN/MD: TESTED (BEAKER) (test code = AT SLS L [address]) [facility] [address] Marble Worker/Techni artemio ID = [id number] for Nelda Abdi CBC W/PLT COUNT & AUTO [id number] 05:53:00 Test Item Value Reference Range Interpretation [...] (BEAKER) (test code = 2801) U/S, ABDOMINAL, [id number] 22:02:00Reason for exam:->thrombocytopenia / eval for hepatosplenomegalyFINAL [...] MDReport Verified Date/Time: 12/20/2019 22:02:21 US abdomen [id number] 22:02:00Interface, External Ris In - 12/20/2019 10:04 [...] Hever Marin MDReport Verified Date/Time: 12/20/2019 22:02:21 [facility]PO[facility] [id number] 20:36:00 Test Item Value Reference Range Interpretation Comments POC-GLUCOSE METER 74 mg/dL 70-110 : Notified RN/MD: [facility] (test code = AT SLS L [address]) [facility] [address]: Marble Worker/Techni artemio ID = [id number] for Nelda Abdi POCT-GLUCOSE [id number] 17:50:00 Test Item Value Reference Range Interpretation Comments POC-GLUCOSE METER 72 mg/dL 70-110 : TESTED A T [facility]SL 1317 ([facility]) (test code = [address] P [facility] [facility], 1538) [facility] [address]: Marble Worker/Techni artemio ID = [id number] for Berta Servin CT, BRAIN, WITHOUT [id number] 16:08:00Unlisted Reason for Exam - Click Yes [...] recommended for further characterization. Signed: Berta Muniz MDRort Verified Date/Time: 12/20/2019 16:08:40 CT brain without IV [id number] 16:08:00Interface, External Ris In - 12/20/2019 4:10 [...] Berta Muniz MDReport Verified Date/Time: 12/20/2019 16:08:40 [facility] CenterRAD, [facility], 2 VIEWS, [id number] 15:15:00Reason for exam:->Rule out osteomyelitisShould this be [...] MDReport Verified Date/Time: 12/20/2019 15:15:25 Reading Location: [facility] Radiology Reading Room , FOOT, 2 VIEWS, [id number] 15:15:00Reason for exam:->Rule out osteomyelitisShould this be [...] MDReport Verified Date/Time: 12/20/2019 15:15:25 Reading Location: [facility] Radiology Reading Room XR foot 2 views [id number] 15:15:00Interface, External Ris In - 12/20/2019 3:17 [...] MDReport Verified Date/Time: 12/20/2019 15:15:25 Reading Location: [facility] Radiology Reading Room [facility] CenterXR foot 2 views [id number] 15:15:00Interface, External Ris In - 12/20/2019 3:17 [...] MDReport Verified Date/Time: 12/20/2019 15:15:25 Reading Location: [facility] Radiology Reading Room [facility] CenterAMMONIA2020-09-21 14:56:00 Test Item Value Reference Range Interpretation Comments AMMONIA (BEAKER) (test code = 348) 33 mol/L 17-80 Marble Worker ID - ADMINBlood gas, vxkqsotl5215-67-92 14:41:00 Test Item Value Reference Range Interpretation Comments pH, Arterial (test code 7.33 7.35-7.45 L = 2744-1) pCO2, Arterial (test 58 See_Comment H [Autom ated message] code = 2019-8) The system Archevos generated this result transmit merna reference range : 35 - 45 mmHg. The reference range was not used to interpret this result as normal/abnormal . pO2, Arterial (test 109 See_Comment H [Automa merna message] code = 2703-7) The system Archevos generated this result transmit merna reference range [...] % Lab Interpretation Abnormal (test code = 44332-5) [facility], [id number] 14:41:00 Test Item Value Reference Range Interpretation [...] code = 1819) 32.0 % Occult blood, [id number] 11:56:00 Test Item Value Reference Range Interpretation Comments Occult blood (test code = 2335-8) Negative Negative Lab Interpretation (test code = Normal 70902-2) [facility] Park[facility]CCULT BLOOD, [id number] 11:56:00 Test Item Value Reference Range Interpretation Comments FECAL OCCULT BLOOD (BEAKER) (test Negative Negative code = 618) POCT-GLUCOSE [id number] 11:39:00 Test Item Value Reference Range Interpretation Comments POC-GLUCOSE METER 88 mg/dL 70-110 : TESTED A T [address] (BEAKER) (test code = [address], 15[address]) [facility] [address]: Marble Worker/Techni artemio ID = [id number] for Gifty Phelps [id number] 11:22:00 Test Item Value Reference Range Interpretation Comments Haptoglobin (test code = <8 14-258 L 4542-7) ZIA (test code = ZIA) Marble Worker ID - LEONIE Jay Lab Interpretation (test Abnormal code = 21174-6) [facility] Park[facility]APTOGLOBIN2020-09-21 11:22:00 Test Item Value Reference Range Interpretation Comments HAPTOGLOBIN (BEAKER) (test code = < mg/dL 14-258 L 366) Marble Worker ID - LEONIE FT4, [id number] 11:01:00 Test Item Value Reference Range Interpretation Comments Free T4 (test code = 0.52 ng/dL 0.9-1.8 L 3024-7) ZIA (test code = ZIA) Marble Worker ID - ADMIN Lab Interpretation (test Abnormal code = 70820-9) [facility] ParkT4, [id number] 11:01:00 Test Item Value Reference Range Interpretation Comments FREE T4 (BEAKER) (test code = 655) 0.52 ng/dL 0.90-1.80 L Marble Worker ID - ADMINPeripheral Blood Smear - Path [id number] 08:19:00 Test Item Value Reference Range Interpretation [...] Griffith M.D. code = 2849) (electronic signature) [facility] ParkPERIPHERAL BLOOD SMEAR - PATHOLOGIST REVIEW 2019-12-20 08:19:00 Test Item Value Reference Range Interpretation Comments RBC MORPHOLOGY Target Cells (BEAKER) (test code = 2846) RBC MORPHOLOGY Basophilic Stippling (BEAKER) (test code = 33047) RBC MORPHOLOGY Nucleated Red Blood Cells (BEAKER) (test code = 66670) PERIPHERAL SMR Normochromic normocytic REVIEW (BEAKER) anemia with a few target (test code = 2640) cells, nucleated RBCs and basophilic stippling. No increase in schistocytes. WBCs normal in number and morphology. Thrombocytopenia with normal platelet morphology. [id number]-320 Jovita Griffith M.D. 2 (BEAKER) (test (electronic signature) code = 2849) Vitamin B12 and Iuqpat9110-20-63 06:37:00 Test Item Value Reference Range Interpretation Comments Vitamin B12 (test 1431 pg/mL 211-911 H code = 2132-9) Folate (test code = 17.00 ng/mL See_Comment [Automa merna 2284-8) message] The system which generated this result transmit merna reference range : >=5.4. The reference range was not used to interpret this result as normal/abnormal . ZIA (test code = ZAI) Marble Worker ID - ADMIN Lab Interpretation Abnormal (test code = 24347-8) [facility] ParkVITAMIN B12 AND [id number] 06:37:00 Test Item Value Reference Range Interpretation Comments VITAMIN B12 (BEAKER) (test code = 1431 pg/mL 211-911 H 774) FOLATE (BEAKER) (test code = 362) 17.00 ng/mL >=5.4 Marble Worker ID - ADMINPOCT-GLUCOSE [id number] 06:32:00 Test Item Value Reference Range Interpretation Comments POC-GLUCOSE METER 79 mg/dL 70-110 : TESTED A T [address] (BEAKER) (test code = [address], 15[address]) [facility] 77 [address]: Marble Worker/Techni artemio ID = [id number] for Anahi Sherman TSH/Free T4 If [id number] 06:25:00 Test Item Value Reference Range Interpretation Comments TSH (test code = 21.210 See_Comment H [Automated 66675-0) message] The system which generated this result transmit merna reference range : 0.350 - 5.500 uIU/mL. The reference range was not used to interpret this result as normal/abnormal . ZIA (test code = ZIA) Marble Worker ID - ADMIN Lab Interpretation Abnormal (test code = 44844-6) [facility] ParkFerritin2020-09-21 06:25:00 Test Item Value Reference Range Interpretation Comments Ferritin (test code = 595.00 ng/mL 10-291 H 2276-4) ZIA (test code = ZIA) Marble Worker ID - ADMIN Lab Interpretation (test Abnormal code = 12527-3) [facility] ParkFERRITIN2020-09-21 06:25:00 Test Item Value Reference Range Interpretation Comments FERRITIN (BEAKER) (test code = 595.00 ng/mL 10.00-291.00 H 361) Marble Worker ID - ADMINTSH/FREE T4 IF [id number] 06:25:00 Test Item Value Reference Range Interpretation Comments THYROID STIMULATING HORMONE 21.210 uIU/mL 0.350-5.500 H (BEAKER) (test code = 772) Marble Worker ID - ADMINPT/[id number] 06:06:00 Test Item Value Reference Interpretation Comments Range Protime (test code = 13.5 See_Comment H [Autom ated 5902-2) message] The system which generated this result transmitted reference range : 9.3 - 12.0 sec. The reference range was not used to interpret this result as normal/abnormal . INR (test code = 1.25 See_Comment [Automated 2501-6) message] The system which generated this result transmitted reference range : <=5.90. The reference range was not used to interpret this result as normal/abnormal . PTT (test code = 38.2 See_Comment H [Automated 83169-4) message] The system which generated this result transmitted reference range : 23.0 - 35.0 sec . The reference range was not used to interpret this result as normal/abnormal . ZIA (test code = RECOMMENDED ZAI) COUMADIN/WARFARIN INR THERAPY RANGESSTANDARD DOSE: 2.0 - 3.0 Includes: PROPHYLAXIS for venous thrombosis, systemic embolization; TREATMENT for venous thrombosis and/or pulmonary embolus.HIGH RISK: Target INR is 2.5-3.5 for patients with mechanical heart valves.Final Information (Auto Output)Final Information (Auto Output)Final Information (Auto Output) Lab Interpretation Abnormal (test code = 83938-8) [facility] 06:06[facility]00 Test Item Value Reference Range Interpretation Comments Fibrinogen (test code = 340 mg/dL 350-854 4650-7) ZIA (test code = ZIA) Final Information (Auto Output) Lab Interpretation (test Normal code = 29866-1) [facility]:06[facility]00 Test Item Value Reference Range Interpretation Comments FIBRINOGEN LEVEL (BEAKER) (test 340 mg/dL 200-400 code = 658) Final Information (Auto Output)PT/[id number] 06:06:00 Test Item Value Reference Range Interpretation [...] = 2502-3) ZIA (test code = ZIA) Marble Worker ID - ADMIN Lab Interpretation (test Abnormal code = 15185-9) [facility] ParkIRON, TIBC, % SAT. (WITHOUT FERRITIN)2019-12-20 05:59:00 Test Item Value Reference Range Interpretation Comments IRON (BEAKER) (test code = 547) 92.0 ug/dL 45.0-170.0 TOTAL IRON BINDING CAPACITY 151 ug/dL 250-550 L (BEAKER) (test code = 769) IRON % SATURATION (2) (BEAKER) 61 % 20-55 H (test code = 2590) Marble Worker ID - ADMINCOMPREHENSIVE METABOLIC [id number] 05:55:00 Test Item Value Reference Range Interpretation [...] S NOT APPLICABLE FOR DIALYSIS PATIEN TS. Marble Worker ID - KSLMFO-vclpi1429-90-21 05:46:00 Test Item Value Reference Range Interpretation Comments D-Dimer, Quant (test 1.09 mg/L <0.50 H code = 36468-2) ZIA (test code = ZIA) REGARDING D-DIMER RESULTS: The 98% NPV (Negative Predictive Value) for DVT/PE exclusion is 0.50 mg/L FEU as suggested by the weight and balance control agent and as approved by the FDA.Final Information (Auto Output) Lab Interpretation (test Abnormal code = 50818-1) [facility] ParkD-[id number] 05:46:00 Test Item Value Reference Range Interpretation Comments D-DIMER QUANTITATIVE (BEAKER) (test 1.09 mg/L <0.50 H code = 671) REGARDING D-DIMER RESULTS: The 98% NPV (Negative Predictive Value) for DVT/PE exclusion is 0.50 mg/LFEU as suggested by the weight and balance control agent and as approved by the FDA.Final Information (Auto Output)Reticulocyte [id number] 05:42:00 Test Item Value Reference Range Interpretation Comments % Retic (test code = 13958-7) 5.9 % 0.4-2.9 H Lab Interpretation (test code = Abnormal 58357-3) [facility] ParkRETICULOCYTE [id number] 05:42:00 Test Item Value Reference Range Interpretation Comments RETICULOCYTE COUNT PCT (BEAKER) (test 5.9 % 0.4-2.9 H code = 575) CBC W/PLT COUNT & AUTO [id number] 05:33:00 Test Item Value Reference Range Interpretation [...] U/L 107-206 ZIA (test code = ZIA) Marble Worker ID - ADMIN Lab Interpretation (test Normal code = 82337-9) [facility] ParkLACTATE DEHYDROGENASE (LDH)2019-12-19 21:19:00 Test Item Value Reference Range Interpretation Comments LACTATE DEHYDROGENASE (BEAKER) (test 178 U/L 107-206 code = 635) Marble Worker ID - ADMINPOCT-GLUCOSE [id number] 20:47:00 Test Item Value Reference Range Interpretation Comments POC-GLUCOSE METER 102 mg/dL 70-110 : TESTED A T [address] (BEAKER) (test code [address], = 1538) [place] [address]: Marble Worker/Techni artemio ID = [id number] for Anahi Sherman POCT-GLUCOSE [id number] 16:18:00 Test Item Value Reference Range Interpretation Comments POC-GLUCOSE METER 96 mg/dL 70-110 : TESTED A T [address] (BEAKER) (test code = [address], 1538) [place] [address]: Marble Worker/Techni artemio ID = [id number] for Nalini Jean Baptiste Basic Metabolic [id number] 06:26:00 Test Item Value Reference Range Interpretation Comments Sodium (test code = 138 meq/L 662-618 7862-2) Potassium (test code = 3.9 meq/L 3.6-5.5 2823-3) Chloride (test code = 99 meq/L 98-106 2075-0) CO2 (test code = 30 meq/L 20-29 H 8-9) BUN (test code = 47 mg/dL 10-26 H 3094-0) Creatinine (test code 3.04 mg/dL 0.5-1.2 H = 2160-0) Glucose (test code = 82 mg/dL 70-110 2345-7) Calcium (test code = 7.9 mg/dL 8.5-10.5 L 97308-5) EGFR (test code = 15 mL/min/1.73 [place] [address]-7) NOT ACCURATE CREATININE CLEARANCE IN PREDICTING GLOMERULAR FILTRATION RATE . ESTIMATED GFR I S NOT APPLICABLE FOR DIALYSIS PATIENTS. ZIA (test code = ZIA) Marble Worker ID - ADMIN Lab Interpretation Abnormal (test code = 10898-6) [facility] ParkBA[facility] METABOLIC [id number] 06:26:00 Test Item Value Reference Range Interpretation [...] S NOT APPLICABLE FOR DIALYSIS PATIEN TS. Marble Worker ID - ADMINCBC W/PLT COUNT & AUTO [id number] 06:04:00 Test Item Value Reference Range Interpretation [...] PERCENT (BEAKER) (test code = 2801) POCT-GLUCOSE [id number] 05:35:00 Test Item Value Reference Range Interpretation Comments POC-GLUCOSE METER 85 mg/dL 70-110 : Notified RN/MD: TESTED (BEAKER) (test code = AT [address]) [facility] [address]: Marble Worker/Techni artemio ID = [id number] for Zonia Healy POCT-GLUCOSE [id number] 21:46:00 Test Item Value Reference Range Interpretation Comments POC-GLUCOSE METER 125 mg/dL 70-110 H : Notified RN/MD: TESTED (BEAKER) (test code AT [address] = 1538) [place] [id number]: Marble Worker/Techni artemio ID = [id number] for Zonia Healy POCT-GLUCOSE [id number] 16:17:00 Test Item Value Reference Range Interpretation Comments POC-GLUCOSE METER 103 mg/dL 70-110 : TESTED A T [address] (BEAKER) (test code [facility], = 1538) [place] [id number]: Marble Worker/Techni artemio ID = [id number] for Akhil rs, Shelea POCT-GLUCOSE [id number] 07:56:00 Test Item Value Reference Range Interpretation Comments POC-GLUCOSE METER 111 mg/dL 70-110 H : TESTED A T [address] (BEAKER) (test code [address] [facility], = 1538) [place] [address]: Marble Worker/Techni artemio ID = [id number] for Akhil rs, Shelea POCT-GLUCOSE [id number] 06:25:00 Test Item Value Reference Range Interpretation Comments POC-GLUCOSE METER 57 mg/dL 70-110 L : TESTED A T [address] (BEAKER) (test code = [address] [facility] [place] [address]: Marble Worker/Techni artemio ID = [id number] for Brow n, Anne POCT-GLUCOSE [id number] 21:55:00 Test Item Value Reference Range Interpretation Comments POC-GLUCOSE METER 76 mg/dL 70-110 : [facility] ([facility]ER[facility] (test code = [address] [facility] [place] [address]: Marble Worker/Techni artemio ID = [id number] for Brow n, Anne POCT-GLUCOSE [id number] 18:03:00 Test Item Value Reference Range Interpretation Comments POC-GLUCOSE METER 81 mg/dL 70-110 : TESTED A T [address] (BEAKER) (test code = [address], [address]) [place] [address]: Marble Worker/Techni artemio ID = [id number] for Torrie Danielerine POCT-GLUCOSE [id number] 12:33:00 Test Item Value Reference Range Interpretation Comments POC-GLUCOSE METER 73 mg/dL 70-110 : TESTED A T [address] (BEAKER) (test code = [address], 1538) [facility] 77 [address]: Marble Worker/Techni artemio ID = [id number] for Marisela Bolton Hepatitis B surface [id number] 10:49:00 Test Item Value Reference Range Interpretation Comments Hep B S Ab (test code <8.0 See_Comment [Auto mated = 94412-4) message] The system which generated this result transmit merna reference range : <8.0 mIU/mL. Th e reference range was not used to interpret this result as normal/abnormal . ZIA (test code = ZIA) Marble Worker ID Bijal Jay Lab Interpretation Normal (test code = 24578-2) [facility] ParkHEPATITIS B SURFACE [id number] 10:49:00 Test Item Value Reference Range Interpretation Comments HEPATITIS B SURFACE ANTIBODY < mIU/mL <8.0 (BEAKER) (test code = 647) Marble Worker ID Bijal LEONIE FHepatitis B core antibody, [id number] 10:43:00 Test Item Value Reference Range Interpretation Comments Hep B Core Total Ab Nonreactive Nonreactive (test code = 90783-4) ZIA (test code = ZIA) Marble Worker DIONICIO Jay Lab Interpretation (test Normal code = 19110-1) [facility] ParkHepaticla[facility] [id number] 10:43:00 Test Item Value Reference Range Interpretation Comments Hepatitis C Ab (test Nonreactive Nonreactive code = 19356-2) ZIA (test code = ZIA) Marble Worker DIONICIO Jay Lab Interpretation (test Normal code = 26216-7) [facility] ParkHEPATITIS C [id number] 10:43:00 Test Item Value Reference Range Interpretation Comments HEPATITIS C ANTIBODY (BEAKER) Nonreactive Nonreactive (test code = 367) Marble Worker ID Bijal LEONIE FHEPATITIS B CORE ANTIBODY, [id number] 10:43:00 Test Item Value Reference Range Interpretation Comments HEPATITIS B CORE TOTAL ANTIBODY Nonreactive Nonreactive (BEAKER) (test code = 497) Marble Worker ID Bijal LEONIE FPOCT-GLUCOSE [id number] 06:31:00 Test Item Value Reference Range Interpretation Comments POC-GLUCOSE METER 67 mg/dL 70-110 L : TESTED A T [address] (BEAKER) (test code = [address], 1538) [facility] [place] [address]: Marble Worker/Techni artemio ID = [id number] for Anne Busby COMPREHENSIVE METABOLIC [id number] 05:10:00 Test Item Value Reference Range Interpretation [...] S NOT APPLICABLE FOR DIALYSIS PATIEN TS. Marble Worker ID - ADMINCBC W/PLT COUNT & AUTO [id number] 04:36:00 Test Item Value Reference Range Interpretation [...] PERCENT (BEAKER) (test code = 2801) POCT-GLUCOSE [id number] 21:14:00 Test Item Value Reference Range Interpretation Comments POC-GLUCOSE METER 79 mg/dL 70-110 : TESTED A T [address] (ROBERT) (test code = [address], 1538) [facility] [place] [address]: Marble Worker/Techni artemio ID = [id number] for Anne Busby POCT-GLUCOSE [id number] 18:35:00 Test Item Value Reference Range Interpretation Comments POC-GLUCOSE METER 68 mg/dL 70-110 L : Notified RN/MD: TESTED (ROBERT) (test code = AT [address], [facility] [place] [address]: Marble Worker/Techni artemio ID = [id number] for Alondra Kelley SARS-COV2/RT-PCR ([facility])2019-12-16 17:53:00 Test Item Value Reference Range Interpretation Comments SARS-COV2/RT-PCR (test Negative Not Detected, Negative, code = 9094664) See external report for linked test SARS-COV-2 PERFORMING LAB [facility] (test code = 1274157) Negative result for this test determines that [...] 564(g) of the Act.Fact Sheet for Healthcare Providers:https://www.Romotive/sites/default/files/product/documents/Fact_Shee a_PE_Tomcxcgeg_Psec_DVKF-LeA-4.pdfFact Sheet for Healthcare Patients:https://www.[employer]/sites/default/files/product/ documents/Cqtu_Tjrft_Snvfraem_Yrjh_OUUQ-JlQ-1.pdfPerforming Laboratory:[facility] [facility].[place], [place] [address]Avmimfkux B surface [id number] 16:57:00 Test Item Value Reference Range Interpretation Comments HBsAg Screen (test code = Nonreactive Nonreactive 5195-3) ZIA (test code = ZIA) Marble Worker ID - ADMIN Lab Interpretation (test Normal code = 97703-6) [facility] ParkHEPATITIS B SURFACE [id number] 16:57:00 Test Item Value Reference Range Interpretation Comments HEPATITIS B SURFACE ANTIGEN (2) Nonreactive Nonreactive (BEAKER) (test code = 2585) Marble Worker ID - ADMINANG, TUNNELED CATHETER [id number] 15:06:00Reason for Central Line/PICC?->Need for hemodialysis accessReason [...] the patient's medical record by the nurse. Risk Specialist: Soto Arias M.D. Flange Machine Operator: none. Approach: Right internal jugular vein Estimated [...] needle into the right atrium. A 4 Emirati micropuncture sheath was placed and a 0.035 wire was advanced into the IVC. A subcutaneous tunnel was created in the left anterior chest wall by blunt dissection. A 23 cm tip to cuff 15.5 Emirati Duraflow 2 catheter was brought through the [...] Arias MDReport Verified Date/Time: 12/16/2019 15:06:45Reading Location: [facility] Radiology Reading Room IR Tunneled Catheter [id number] 15:06:00 Interface, External Ris In - 12/16/2019 [...] the patient's medical record by the nurse. Risk Specialist: Soto Arias M.D. Ass istant: none. Approach: [...] A 23 cm tip to cuff 15.5 Emirati Duraflow 2 catheter was brought through the [...] MDReport Verified Date/Time: 12/16/2019 15:06:45 Reading Location: [facility] Radiology [facility] [id number] 14:59:00 Test Item Value Reference Range Interpretation Comments POC-GLUCOSE METER 70 mg/dL 70-110 : Notified RN/MD: TESTED (BEAKER) (test code = AT [facility] L [address]) [facility] [address]: Marble Worker/Techni artemio ID = [id number] for Alondra Kelley POCT-GLUCOSE [id number] 11:13:00 Test Item Value Reference Range Interpretation Comments POC-GLUCOSE METER 72 mg/dL 70-110 : Notified RN/MD: TESTED (BEAKER) (test code = AT [facility] L [address]) [place] [address]: Marble Worker/Techni artemio ID = [id number] for Alondra Kelley RAD, CHEST, 1 VIEW, NON [id number] 09:20:00Reason for exam:->fallShould this be performed at [...] Ariaseport Verified Date/Time: 12/16/2019 09:20:06 Reading Location: [facility] Radiology Reading Room XR chest 1 view portable / [id number] 09:20:00Interface, External Ris In - 12/16/2019 9:22 [...] [place] Verified Date/Time: 12/16/2019 09:20:06 Reading Location: [facility] Radiology Reading Room Electronically yeimi d by: SOTO ARIAS MD on 12/16/2019 09:20 [facility] POCT-GLUCOSE [id number] 06:03:00 Test Item Value Reference Range Interpretation Comments POC-GLUCOSE METER 74 mg/dL 70-110 : Notified RN/MD: TESTED (BEAKER) (test code = AT [facility] [address]) [facility] [address]: Marble Worker/Techni artemio ID = [id number] for Zonia Healy BASIC METABOLIC [id number] 05:08:00 Test Item Value Reference Range Interpretation [...] S NOT APPLICABLE FOR DIALYSIS PATIISA TS. Marble Worker ID - ADMINProthrombin time/[id number] 05:01:00 Test Item Value Reference Interpretation Comments Range Protime (test code = 14.1 See_Comment H [Autom ated 5902-2) message] The system which generated this result transmitted reference range : 9.3 - 12.0 sec. The reference range was not used to interpret this result as normal/abnormal . INR (test code = 1.31 See_Comment [Automated 3971-6) message] The system which generated this result [...] Output) Lab Interpretation Abnormal (test code = 89300-7) [facility] ParkPROTHROMBIN TIME/[id number] 05:01:00 Test Item Value Reference Range Interpretation [...] Information (Auto Output)CBC W/PLT COUNT & AUTO [id number] 04:46:00 Test Item Value Reference Range Interpretation [...] PERCENT (BEAKER) (test code = 2801) POCT-GLUCOSE [id number] 17:13:00 Test Item Value Reference Range Interpretation Comments POC-GLUCOSE METER 220 mg/dL 70-110 H TESTED AT [facility] 67 [facility] (test code = [facility] [place] 1538) [address] BASIC METABOLIC [id number] 15:47:00 Test Item Value Reference Range Interpretation [...] NOT APPLICABLE FOR DIALYSIS PATIEN TS. POCT-GLUCOSE [id number] 11:30:00 Test Item Value Reference Range Interpretation Comments POC-GLUCOSE METER 268 mg/dL 70-110 H TESTED AT [facility] 6720 (BEAKER) (test code = [facility] [place] 1538) [address] POCT-GLUCOSE [id number] 07:08:00 Test Item Value Reference Range Interpretation Comments POC-GLUCOSE METER 208 mg/dL 70-110 H TESTED AT [facility] 6720 (BEAKER) (test code = [place] 1538) [address] CALCIUM, [id number] 06:47:00 Test Item Value Reference Range Interpretation Comments CALCIUM IONIZED (BEAKER) (test 1.11 mmol/L 1.12-1.27 L code = 698) PH, BLOOD (BEAKER) (test code = 7.40 1810) BASIC METABOLIC [id number] 06:40:00 Test Item Value Reference Range Interpretation [...] S NOT APPLICABLE FOR DIALYSIS PATIEN TS. [id number] 06:33:00 Test Item Value Reference Range Interpretation Comments PHOSPHORUS (BEAKER) (test code = 5.1 mg/dL 2.3-4.7 H 604) [id number] 06:33:00 Test Item Value Reference Range Interpretation Comments MAGNESIUM (BEAKER) (test code = 2.0 mg/dL 1.6-2.6 627) LACTIC ACID, VENOUS, WHOLE [id number] 06:02:00 Test Item Value Reference Range Interpretation Comments LACTATE BLOOD VENOUS (2) (BEAKER) 0.8 mmol/L 0.5-2.2 (test code = 2872) Effective 08/02/2015: Units/Reference Range ChangeNew: 0.5-2.2 mmol/L Previous: 5-20 mg/dLCBC W/PLT COUNT & AUTO [id number] 05:54:00 Test Item Value Reference Range Interpretation [...] 417) IMMATURE GRANULOCYTES-RELATIVE 0 % 0-1 PERCENT (AKER) (test code = 2801) POCT-GLUCOSE [id number] 21:30:00 Test Item Value Reference Range Interpretation Comments POC-GLUCOSE METER 248 mg/dL 70-110 H TESTED AT [facility] 67 ([facility]) (test code = JULIANO Osborne [facility] 1538) [address] RAD, [id number] 21:22:00Reason for exam:->fall, tailbone painFINAL REPORT RAD, [...] MDReport Verified Date/Time: 09/04/2017 21:22:03 Reading Location: [address] Reading Room POCT-GLUCOSE [id number] 17:37:00 Test Item Value Reference Range Interpretation Comments POC-GLUCOSE METER 222 mg/dL 70-110 H TESTED AT [facility] 6720 ([facility] (test code = JULIANO Osborne [facility] 1538) [address] POCT-GLUCOSE [id number] 13:55:00 Test Item Value Reference Range Interpretation Comments POC-GLUCOSE METER 194 mg/dL 70-110 H TESTED AT [facility] 67 ([facility]) (test code = JULIANO Osborne [facility] 1538) [address] POCT-GLUCOSE [id number] 12:34:00 Test Item Value Reference Range Interpretation Comments POC-GLUCOSE METER 229 mg/dL 70-110 H TESTED AT [facility] 6720 (BEAKER) (test code = JULIANO Osborne [facility] 1538) [address] POCT-GLUCOSE [id number] 08:00:00 Test Item Value Reference Range Interpretation Comments POC-GLUCOSE METER 159 mg/dL 70-110 H TESTED AT [facility] 6720 (BEAKER) (test code = JULIANO Osborne [facility] 1538) [address] CALCIUM, [id number] 06:00:00 Test Item Value Reference Range Interpretation Comments CALCIUM IONIZED (BEAKER) (test 1.05 mmol/L 1.12-1.27 L code = 698) PH, BLOOD (BEAKER) (test code = 7.45 1810) [id number] 05:59:00 Test Item Value Reference Range Interpretation Comments PHOSPHORUS (BEAKER) (test code = 4.8 mg/dL 2.3-4.7 H 604) [id number] 05:59:00 Test Item Value Reference Range Interpretation Comments MAGNESIUM (BEAKER) (test code = 2.0 mg/dL 1.6-2.6 627) BASIC METABOLIC [id number] 05:59:00 Test Item Value Reference Range Interpretation [...] = 380) CBC W/PLT COUNT & AUTO [id number] 05:32:00 Test Item Value Reference Range Interpretation [...] PERCENT (BEAKER) (test code = 2801) POCT-GLUCOSE [id number] 20:36:00 Test Item Value Reference Range Interpretation Comments POC-GLUCOSE METER 211 mg/dL 70-110 H TESTED AT [place] [address] ([facility]) (test code = [facility] [place] [facility] 1538) [address] CREATININE, RANDOM [id number] 19:55:00 Test Item Value Reference Range Interpretation Comments CREATININE URINE (BEAKER) (test 16.1 mg/dL code = 375) Reference Range: No NormalsPROTEIN, RANDOM [id number] 19:55:00 Test Item Value Reference Range Interpretation Comments PROTEIN, URINE (BEAKER) (test code 102 mg/dL 0-14 H = 1569) POCT-GLUCOSE [id number] 18:04:00 Test Item Value Reference Range Interpretation Comments POC-GLUCOSE METER 177 mg/dL 70-110 H TESTED AT [place] [address] ([facility]) (test code = [facility] [place] [facility] 1538) [address] POCT-GLUCOSE [id number] 11:59:00 Test Item Value Reference Range Interpretation Comments POC-GLUCOSE METER 244 mg/dL 70-110 H TESTED AT [place] [address] ([facility]) (test code = [facility] 1538) [address] POCT-GLUCOSE [id number] 07:53:00 Test Item Value Reference Range Interpretation Comments POC-GLUCOSE METER 160 mg/dL 70-110 H TESTED AT [place] [address] ([facility] [place]) (test code = [facility] 1538) [address] BASIC METABOLIC [id number] 05:29:00 Test Item Value Reference Range Interpretation [...] S NOT APPLICABLE FOR DIALYSIS PATIEN TS. [id number] 05:21:00 Test Item Value Reference Range Interpretation Comments MAGNESIUM (BEAKER) (test code = 2.1 mg/dL 1.6-2.6 627) HEPATIC FUNCTION [id number] 05:21:00 Test Item Value Reference Range Interpretation [...] code = 23 U/L 6-55 347) TROPONIN [id number] 05:18:00 Test Item Value Reference Range Interpretation [...] EOSINOPHILS ABSOLUTE COUNT 0.36 K/ L 0.04-0.36 (DANIELA) (test code = 416) BASOPHILS ABSOLUTE COUNT (AKER) 0.06 K/ L 0.01-0.08 (test code = 417) IMMATURE GRANULOCYTES-RELATIVE 0 % 0-1 PERCENT (DANIELA) (test code = 2801) TROPONIN [id number] 23:40:00 Test Item Value Reference Range Interpretation [...] acidosis, acute neurological disease, and persistent tachyarrhythmia.POCT-GLUCOSE [id number] 22:51:00 Test Item Value Reference Range Interpretation Comments POC-GLUCOSE METER 214 mg/dL 70-110 H TESTED AT [facility] 6720 ([facility]) (test code = JULIAON [place] 1538) [address] RAD, CHEST, 1 VIEW, NON [id number] 21:42:00Reason for exam:->CHEST PAINShould this be performed at the bedside?->YesFINAL REPORT RAD, CHEST, 1 VIEW, NON DEPT INDICATION: CHEST PAIN COMPARISON: Chest x-ray 4 weeks ago TECHNIQUE: Single frontal view of the chest. IMPRESSION:Cardiomegaly.Mild pulmonary interstitial edema with a small right- sided effusion.No acute osseous abnormality. Signed: Dario Abraham MDReport Verified Date/Time: 09/02/2017 21:42:11 Reading Location: [address] onsc Reading Room CREATININE, RANDOM [id number] 21:10:00 Test Item Value Reference Range Interpretation Comments CREATININE URINE (ROBERT) (test 35.5 mg/dL code = 375) Reference Range: No NormalsSODIUM, RANDOM [id number] 21:10:00 Test Item Value Reference Range Interpretation Comments SODIUM URINE (BEAKER) (test code = 80 meq/L 243) Reference Range: No NormalsURINALYSIS W/ [id number] 20:59:00 Test Item Value Reference Range Interpretation [...] code = 514) SOURCE(BEAKER) (test code = 2577) BASIC METABOLIC [id number] 16:49:00 Test Item Value Reference Range Interpretation [...] S NOT APPLICABLE FOR DIALYSIS PATIEN TS. [id number] 16:38:00 Test Item Value Reference Range Interpretation [...] (BEAKER) (test code = 700) BASIC METABOLIC [id number] 13:43:00 Test Item Value Reference Range Interpretation [...] NOT APPLICABLE FOR DIALYSIS PATIEN TS. POCT-GLUCOSE [id number] 12:44:00 Test Item Value Reference Range Interpretation Comments POC-GLUCOSE METER 283 mg/dL 70-110 H TESTED AT [facility] 6720 (BEAKER) (test code = JULIANO [place] 1538) [address] CALCIUM, [id number] 07:03:00 Test Item Value Reference Range Interpretation Comments CALCIUM IONIZED (BEAKER) (test 1.02 mmol/L 1.12-1.27 L code = 698) PH, BLOOD (BEAKER) (test code = 7.43 1810) [id number] 05:28:00 Test Item Value Reference Range Interpretation Comments PHOSPHORUS (BEAKER) (test code = 3.3 mg/dL 2.3-4.7 604) [id number] 05:28:00 Test Item Value Reference Range Interpretation Comments MAGNESIUM (BEAKER) (test code = 1.5 mg/dL 1.6-2.6 L 627) BASIC METABOLIC [id number] 05:28:00 Test Item Value Reference Range Interpretation [...] PATIEN TS. CBC W/PLT COUNT & AUTO [id number] 05:06:00 Test Item Value Reference Range Interpretation [...] PERCENT (AKER) (test code = 2801) POCT-GLUCOSE [id number] 21:08:00 Test Item Value Reference Range Interpretation Comments POC-GLUCOSE METER 202 mg/dL 70-110 H TESTED AT [place] [address] ([facility] [place]) (test code = BANNERVERA Osborne [facility] 1538) [address] POCT-GLUCOSE [id number] 16:50:00 Test Item Value Reference Range Interpretation Comments POC-GLUCOSE METER 287 mg/dL 70-110 H TESTED AT [place] [address] ([facility] [place]) (test code = [facility] 1538) [address] POCT-GLUCOSE [id number] 12:21:00 Test Item Value Reference Range Interpretation Comments POC-GLUCOSE METER 213 mg/dL 70-110 H TESTED AT [place] [address] ([facility] [place]) (test code = [facility] [place] [facility] 1538) [address] POCT-GLUCOSE [id number] 08:28:00 Test Item Value Reference Range Interpretation Comments POC-GLUCOSE METER 178 mg/dL 70-110 H TESTED AT [place] [address] ([facility] [place]) (test code = [facility] 1538) [address] CALCIUM, [id number] 07:06:00 Test Item Value Reference Range Interpretation Comments CALCIUM IONIZED (BEAKER) (test 0.99 mmol/L 1.12-1.27 L code = 698) PH, BLOOD (BEAKER) (test code = 7.42 1810) [id number] 05:37:00 Test Item Value Reference Range Interpretation Comments PHOSPHORUS (BEAKER) (test code = 3.5 mg/dL 2.3-4.7 604) [id number] 05:37:00 Test Item Value Reference Range Interpretation Comments MAGNESIUM (BEAKER) (test code = 1.6 mg/dL 1.6-2.6 627) BASIC METABOLIC [id number] 05:37:00 Test Item Value Reference Range Interpretation [...] PATIEN TS. CBC W/PLT COUNT & AUTO [id number] 05:07:00 Test Item Value Reference Range Interpretation [...] PERCENT (BEAKER) (test code = 2801) POCT-GLUCOSE [id number] 21:24:00 Test Item Value Reference Range Interpretation Comments POC-GLUCOSE METER 255 mg/dL 70-110 H TEST[facility] AT [place] [address] [facility] (test code = JULIANO Osborne [facility] 1538) [address] POCT-GLUCOSE [id number] 17:11:00 Test Item Value Reference Range Interpretation Comments POC-GLUCOSE METER 244 mg/dL 70-110 H TESTED AT [facility] 67 ([facility] (test code = JULIANO Osborne [place] 1538) [address] POCT-GLUCOSE [id number] 11:54:00 Test Item Value Reference Range Interpretation Comments POC-GLUCOSE METER 209 mg/dL 70-110 H TESTED AT [place] [address] ([facility]) (test code = JULIANO Osborne [place] 1538) [address] POCT-GLUCOSE [id number] 08:15:00 Test Item Value Reference Range Interpretation Comments POC-GLUCOSE METER 132 mg/dL 70-110 H TESTED AT [facility] 6720 (BEAKER) (test code = JULIANO [place] 1538) [address] RAD, CHEST, 1 VIEW, NON [id number] 07:44:00Reason for exam:->edemaShould this be performed at the bedside?->YesFINAL REPORT Chest one view AP 08/07/2017 7:44 AM CLINICAL INDICATION: edema COMPARISON: 05/31/2017 IMPRESSION: Cardiomediastinal contours are stable. There is mild pulmonary edema,asymmetric to the right. There are trace bilateral pleural effusions, with bibasilar linear atelectasis. Sternotomy wires remain midline. Signed: Regan Cespedes Verified Date/Time: 08/07/2017 07:44:22 Reading Location: [facility] Radiology Reading Room [id number] 05:30:00 Test Item Value Reference Range Interpretation Comments FERRITIN (BEAKER) (test code = 361) 87 ng/mL 5-275 CBC W/PLT COUNT & AUTO [id number] 05:21:00 Test Item Value Reference Range Interpretation [...] % 20-55 L (test code = 2590) [id number] 05:11:00 Test Item Value Reference Range Interpretation Comments PHOSPHORUS (BEAKER) (test code = 3.6 mg/dL 2.3-4.7 604) [id number] 05:11:00 Test Item Value Reference Range Interpretation Comments MAGNESIUM (BEAKER) (test code = 2.0 mg/dL 1.6-2.6 627) BASIC METABOLIC [id number] 05:11:00 Test Item Value Reference Range Interpretation [...] H (BEAKER) (test code = 700) CALCIUM, [id number] 04:58:00 Test Item Value Reference Range Interpretation Comments CALCIUM IONIZED (BEAKER) (test 1.04 mmol/L 1.12-1.27 L code = 698) PH, BLOOD (BEAKER) (test code = 7.41 1810) RETICULOCYTE [id number] 04:51:00 Test Item Value Reference Range Interpretation Comments RETICULOCYTE COUNT PCT (BEAKER) (test 1.2 % 0.5-1.7 code = 575) POCT-GLUCOSE [id number] 20:49:00 Test Item Value Reference Range Interpretation Comments POC-GLUCOSE METER 202 mg/dL 70-110 H TESTED AT [facility] 6720 (BEAKER) (test code = JULIANO Osborne [place] 1538) [address] CREATININE, RANDOM [id number] 18:38:00 Test Item Value Reference Range Interpretation Comments CREATININE URINE (BEAKER) (test 56.3 mg/dL code = 375) Reference Range: No NormalsPROTEIN, RANDOM [id number] 18:38:00 Test Item Value Reference Range Interpretation Comments PROTEIN, URINE (BEAKER) (test code 189 mg/dL 0-14 H = 1569) URINALYSIS W/ [id number] 18:34:00 Test Item Value Reference Range Interpretation [...] 516) SOURCE(BEAKER) (test code = Urine, Voided 5702) POCT-GLUCOSE [id number] 17:38:00 Test Item Value Reference Range Interpretation Comments POC-GLUCOSE METER 143 mg/dL 70-110 H TESTED AT [facility] 6720 (BEAKER) (test code = JULIANO REYEZ 1538) [address] POCT-GLUCOSE [id number] 12:30:00 Test Item Value Reference Range Interpretation Comments POC-GLUCOSE METER 218 mg/dL 70-110 H TESTED AT [facility] 6720 (BEAKER) (test code = JULIANO REYEZ 1538) [address] POCT-GLUCOSE [id number] 08:00:00 Test Item Value Reference Range Interpretation Comments POC-GLUCOSE METER 134 mg/dL 70-110 H TESTED AT [facility] 6720 (BEAKER) (test code = JULIANO REYEZ 1538) [address] CBC W/PLT COUNT & AUTO [id number] 04:23:00 Test Item Value Reference Range Interpretation [...] (BEAKER) (test code = 2801) BASIC METABOLIC [id number] 04:13:00 Test Item Value Reference Range Interpretation [...] S NOT APPLICABLE FOR DIALYSIS PATIEN TS. [id number] 04:10:00 Test Item Value Reference Range Interpretation Comments PHOSPHORUS (BEAKER) (test code = 4.9 mg/dL 2.3-4.7 H 604) [id number] 04:10:00 Test Item Value Reference Range Interpretation Comments MAGNESIUM (BEAKER) (test code = 1.4 mg/dL 1.6-2.6 L 627) [id number] 04:08:00 Test Item Value Reference Range Interpretation Comments FIBRINOGEN LEVEL (BEAKER) (test 548 mg/dl 225-434 H code = 658) [id number] 04:08:00 Test Item Value Reference Range Interpretation Comments PARTIAL THROMBOPLASTIN TIME 37.7 seconds 22.5-36.0 H (BEAKER) (test code = 760) PROTHROMBIN [id number] 04:07:00 Test Item Value Reference Range Interpretation Comments PROTIME (BEAKER) (test code = 16.2 seconds 11.7-14.7 H 759) INR (BEAKER) (test code = 370) 1.3 <=5.9 RECOMMENDED COUMADIN/WARFARIN INR THERAPY RANGESSTANDARD DOSE: 2.0 - 3.0 Includes: PROPHYLAXIS forvenous thrombosis, systemic embolization; TREATMENT for venous thrombosis and/or pulmonary embolus.HIGH RISK: Target INR is 2.5-3.5 for patients with mechanical heart valves.[id number] 16:59:00 Test Item Value Reference Range Interpretation Comments ACTIVATED CLOTTING TIME 219 sec TEST ED AT [place] [address] ([facility]) (test code = [facility] 441) [address] BASIC METABOLIC [id number] 14:25:00 Test Item Value Reference Range Interpretation [...] 358) GLUCOSE RANDOM 160 mg/dL 70-105 H ([facility]) (test code = 652) CALCIUM (BEAKER) 7.8 mg/dL 8.4-10.2 L (test code = 697) EGFR (BEAKER) (test 23 mL/min/1.73 ESTIMA MERNA GFR IS code = 1092) sq m NOT ACCURATE CREATININE CLEARANCE IN PREDICTING GLOMERULAR FILTRATION RATE . ESTIMATED GFR I S NOT APPLICABLE FOR DIALYSIS PATIEN TS. POCT-GLUCOSE [id number] 13:21:00 Test Item Value Reference Range Interpretation Comments POC-GLUCOSE METER 170 mg/dL 70-110 H TESTED AT [place] [address] ([facility] [place]) (test code = [facility] 1535) [address] POTASSIUM-STAT [id number] 13:20:00 Test Item Value Reference Range Interpretation Comments POTASSIUM (BEAKER) (test code = 4.2 meq/L 3.6-5.5 379) SODIUM NA-STAT [id number] 13:20:00 Test Item Value Reference Range Interpretation Comments SODIUM (BEAKER) (test code = 381) 133 meq/L 135-148 L HGB/HCT (H&H) - STAT [id number] 12:34:00 Test Item Value Reference Range Interpretation Comments HEMOGLOBIN (BEAKER) (test code = 10.8 g/dL 12.0-15.0 L 410) HEMATOCRIT (BEAKER) (test code = 32.0 % 36.0-45.0 L 411) POTASSIUM-STAT [id number] 08:15:00 Test Item Value Reference Range Interpretation Comments POTASSIUM (BEAKER) (test code = 4.1 meq/L 3.6-5.5 379) BLOOD GAS, [id number] 08:15:00 Test Item Value Reference Range Interpretation [...] code = 1819) 70.0 % SODIUM NA-STAT [id number] 08:15:00 Test Item Value Reference Range Interpretation Comments SODIUM (BEAKER) (test code = 381) 130 meq/L 135-148 L GLUCOSE-STAT [id number] 08:15:00 Test Item Value Reference Range Interpretation Comments GLUCOSE RANDOM (BEAKER) (test code 172 mg/dL 70-110 H = 652) HGB/HCT (H&H) - STAT [id number] 08:15:00 Test Item Value Reference Range Interpretation Comments HEMOGLOBIN (BEAKER) (test code = 8.8 g/dL 12.0-15.0 L 410) HEMATOCRIT (BEAKER) (test code = 26.0 % 36.0-45.0 L 411) BASIC METABOLIC [id number] 07:37:00 Test Item Value Reference Range Interpretation [...] PATIEN TS. CBC W/PLT COUNT & AUTO [id number] 07:20:00 Test Item Value Reference Range Interpretation [...] PERCENT (BEAKER) (test code = 2801) POCT-GLUCOSE [id number] 07:03:00 Test Item Value Reference Range Interpretation Comments POC-GLUCOSE METER 186 mg/dL 70-110 H TESTED AT [facility] 6720 ([facility] [place]) (test code = JULIANO [place] 1538) [address] B-TYPE NATRIURETIC FACTOR (BNP)2017-06-10 12:44:00 Test Item Value Reference Range Interpretation Comments B-TYPE NATRIURETIC PEPTIDE 1264 pg/mL 0-100 H (BEAKER) (test code = 700) [id number] 12:36:00 Test Item Value Reference Range Interpretation Comments MAGNESIUM (BEAKER) (test code = 1.6 mg/dL 1.6-2.6 627) BASIC METABOLIC [id number] 12:36:00 Test Item Value Reference Range Interpretation [...] NOT APPLICABLE FOR DIALYSIS PATIEN TS. POCT-GLUCOSE [id number] 12:04:00 Test Item Value Reference Range Interpretation Comments POC-GLUCOSE METER 274 mg/dL 70-110 H TESTED AT [facility] 6720 (BEAKER) (test code = JULIANO Osborne [facility] 1538) [address] POCT-GLUCOSE [id number] 07:21:00 Test Item Value Reference Range Interpretation Comments POC-GLUCOSE METER 137 mg/dL 70-110 H TESTED AT [facility] 6720 (BEAKER) (test code = JULIANO Osborne [facility] 1538) [address] BASIC METABOLIC [id number] 05:10:00 Test Item Value Reference Range Interpretation [...] 0-0 (BEAKER) (test code = 413) POCT-GLUCOSE [id number] 21:23:00 Test Item Value Reference Range Interpretation Comments POC-GLUCOSE METER 240 mg/dL 70-110 H TESTED AT [facility] 6720 (BEAKER) (test code = JULIANO REYEZ 1538) [address] POCT-GLUCOSE [id number] 16:42:00 Test Item Value Reference Range Interpretation Comments POC-GLUCOSE METER 234 mg/dL 70-110 H TESTED AT [facility] 6720 ([facility]) (test code = JULIANO Osborne [place] 1538) [address] POCT-GLUCOSE [id number] 13:22:00 Test Item Value Reference Range Interpretation Comments POC-GLUCOSE METER 166 mg/dL 70-110 H TESTED AT [facility] 6720 ([facility]) (test code = JULIANO Osborne [place] 1538) [address] RAD, CHEST, 1 VIEW, NON [id number] 09:43:00Reason for exam:->s/p ACBShould this be performed [...] 09:43:30 ReadingLocation: [facility] B1 C013X Ortho Consult Reading Room POCT-GLUCOSE [id number] 06:57:00 Test Item Value Reference Range Interpretation Comments POC-GLUCOSE METER 136 mg/dL 70-110 H TESTED AT [facility] 6720 ([facility]) (test code = JULIANO Osborne [facility] 1538) [address] CALCIUM, [id number] 06:41:00 Test Item Value Reference Range Interpretation Comments CALCIUM IONIZED (BEAKER) (test 1.10 mmol/L 1.12-1.27 L code = 698) PH, BLOOD (BEAKER) (test code = 7.42 1810) [id number] 06:17:00 Test Item Value Reference Range Interpretation Comments PHOSPHORUS (BEAKER) (test code = 3.3 mg/dL 2.3-4.7 604) [id number] 06:17:00 Test Item Value Reference Range Interpretation Comments MAGNESIUM (BEAKER) (test code = 1.8 mg/dL 1.6-2.6 627) BASIC METABOLIC [id number] 06:17:00 Test Item Value Reference Range Interpretation [...] PATIEN TS. CBC W/PLT COUNT & AUTO [id number] 05:07:00 Test Item Value Reference Range Interpretation [...] PERCENT (BEAKER) (test code = 2801) POCT-GLUCOSE [id number] 20:56:00 Test Item Value Reference Range Interpretation Comments POC-GLUCOSE METER 196 mg/dL 70-110 H TESTED AT [place] [address] ([facility]) (test code = JULIANO Osborne [facility] 1538) [address] POCT-GLUCOSE [id number] 16:42:00 Test Item Value Reference Range Interpretation Comments POC-GLUCOSE METER 196 mg/dL 70-110 H TESTED AT [place] [address] ([facility]) (test code = JULIANO Osborne [facility] 1538) [address] POCT-GLUCOSE [id number] 11:45:00 Test Item Value Reference Range Interpretation Comments POC-GLUCOSE METER 215 mg/dL 70-110 H TESTED AT [place] [address] ([facility]) (test code = JULIANO Osborne [facility] 1538) [address] RAD, CHEST, 1 VIEW, NON [id number] 11:15:00Reason for exam:->s/p ACBShould this be performed at the bedside?->YesFINAL REPORT Chest one view compared to May 28, 2017 Discussion: Airspace opacities are seen in both lower lung regions, probably atelectasis. Correlate clinically for infection. I could not exclude small effusions. No pneumothorax. Upper lungs clear. Signed: Jeannette Navaeport Verified Date/Time: 05/30/2017 11:15:07 Reading Location: [facility] Radiology Reading Room CALCIUM, [id number] 09:21:00 Test Item Value Reference Range Interpretation Comments CALCIUM IONIZED (BEAKER) (test 1.11 mmol/L 1.12-1.27 L code = 698) PH, BLOOD (BEAKER) (test code = 7.36 1810) BASIC METABOLIC [id number] 07:37:00 Test Item Value Reference Range Interpretation [...] S NOT APPLICABLE FOR DIALYSIS PATIEN TS. [id number] 07:28:00 Test Item Value Reference Range Interpretation Comments PHOSPHORUS (BEAKER) (test code = 3.8 mg/dL 2.3-4.7 604) [id number] 07:28:00 Test Item Value Reference Range Interpretation Comments MAGNESIUM (BEAKER) (test code = 1.9 mg/dL 1.6-2.6 627) CBC W/PLT COUNT & AUTO [id number] 07:26:00 Test Item Value Reference Range Interpretation [...] EOSINOPHILS ABSOLUTE COUNT 0.20 K/ L 0.04-0.36 ([facility]) (test code = 416) BASOPHILS ABSOLUTE COUNT ([facility]) 0.02 K/ L 0.01-0.08 (test code = 417) IMMATURE GRANULOCYTES-RELATIVE 1 % 0-1 PERCENT ([facility]) (test code = 2801) POCT-GLUCOSE [id number] 07:21:00 Test Item Value Reference Range Interpretation Comments POC-GLUCOSE METER 146 mg/dL 70-110 H TESTED AT [place] [address] ([facility]) (test code = [facility] 1538) [address] POCT-GLUCOSE [id number] 22:02:00 Test Item Value Reference Range Interpretation Comments POC-GLUCOSE METER 201 mg/dL 70-110 H TESTED AT [place] [address] ([facility] [place]) (test code = [facility] 1538) [address] POCT-GLUCOSE [id number] 18:27:00 Test Item Value Reference Range Interpretation Comments POC-GLUCOSE METER 240 mg/dL 70-110 H TESTED AT [place] [address] ([facility] [place]) (test code = [facility] 1538) [address] POCT-GLUCOSE [id number] 12:13:00 Test Item Value Reference Range Interpretation Comments POC-GLUCOSE METER 193 mg/dL 70-110 H TESTED AT [place] [address] ([facility] [place]) (test code = [facility] 1538) [address] POCT-GLUCOSE [id number] 09:02:00 Test Item Value Reference Range Interpretation Comments POC-GLUCOSE METER 132 mg/dL 70-110 H TESTED AT [place] [address] ([facility] [place]) (test code = [facility] 1538) [address] CALCIUM, [id number] 05:42:00 Test Item Value Reference Range Interpretation Comments CALCIUM IONIZED ([facility] [place]) (test 1.12 mmol/L 1.12-1.27 code = 698) PH, BLOOD ([facility] [place]) (test code = 7.34 1810) COMPREHENSIVE METABOLIC [id number] 05:33:00 Test Item Value Reference Range Interpretation Comments TOTAL PROTEIN 5.9 gm/dL 6.0-8.3 L ([facility] [place]) (test code = 770) ALBUMIN (BEAKER) 2.7 [...] S NOT APPLICABLE FOR DIALYSIS PATIEN TS. [id number] 05:32:00 Test Item Value Reference Range Interpretation Comments PHOSPHORUS (BEAKER) (test code = 3.6 mg/dL 2.3-4.7 604) [id number] 05:32:00 Test Item Value Reference Range Interpretation Comments MAGNESIUM (BEAKER) (test code = 2.2 mg/dL 1.6-2.6 627) CBC W/PLT COUNT & AUTO [id number] 05:01:00 Test Item Value Reference Range Interpretation [...] PERCENT (BEAKER) (test code = 2801) POCT-GLUCOSE [id number] 21:04:00 Test Item Value Reference Range Interpretation Comments POC-GLUCOSE METER 165 mg/dL 70-110 H TESTED AT [place] [address] ([facility]) (test code = JULIANO Osborne [facility] 1538) [address] POCT-GLUCOSE [id number] 17:30:00 Test Item Value Reference Range Interpretation Comments POC-GLUCOSE METER 236 mg/dL 70-110 H TESTED AT [place] [address] ([facility]) (test code = JULIANO Osborne [facility] 1538) [address] RAD, CHEST, 1 VIEW, NON [id number] 13:53:00Reason for exam:->assess for ill-defined opacityShould this [...] MDReport Verified Date/Time: 05/28/2017 13:53:03 Reading Location: [address] Radiology Reading Room POCT-GLUCOSE [id number] 11:53:00 Test Item Value Reference Range Interpretation Comments POC-GLUCOSE METER 215 mg/dL 70-110 H TESTED AT [place] [address] ([facility]) (test code = JULIANO Osborne [facility] 1538) [address] POCT-GLUCOSE [id number] 08:32:00 Test Item Value Reference Range Interpretation Comments POC-GLUCOSE METER 168 mg/dL 70-110 H TESTED AT [place] [address] ([facility]) (test code = JULIANO Osborne [facility] 1538) [address] CALCIUM, [id number] 05:44:00 Test Item Value Reference Range Interpretation Comments CALCIUM IONIZED ([facility]) (test 1.09 mmol/L 1.12-1.27 L code = 698) PH, BLOOD ([facility]) (test code = 7.38 1810) [id number] 05:44:00 Test Item Value Reference Range Interpretation Comments PHOSPHORUS ([facility]) (test code = 3.5 mg/dL 2.3-4.7 604) [id number] 05:44:00 Test Item Value Reference Range Interpretation Comments MAGNESIUM (BEAKER) (test code = 1.9 mg/dL 1.6-2.6 627) BASIC METABOLIC [id number] 05:44:00 Test Item Value Reference Range Interpretation [...] PATIEN TS. CBC W/PLT COUNT & AUTO [id number] 05:05:00 Test Item Value Reference Range Interpretation [...] PERCENT (BEAKER) (test code = 2801) POCT-GLUCOSE [id number] 21:03:00 Test Item Value Reference Range Interpretation Comments POC-GLUCOSE METER 173 mg/dL 70-110 H TESTED AT [place] [address] ([facility]) (test code = JULIANO [place] 1538) [address] [id number] 18:15:00 Test Item Value Reference Range Interpretation Comments ACTIVATED CLOTTING TIME 147 sec TEST ED AT [place] [address] ([facility]) (test code = JULIANO [place] 441) [address] [id number] 18:15:00 Test Item Value Reference Range Interpretation Comments ACTIVATED CLOTTING TIME 246 sec TEST ED AT [place] [address] ([facility]) (test code = JULIANO Osborne [place] 441) [address] POCT-GLUCOSE [id number] 12:39:00 Test Item Value Reference Range Interpretation Comments POC-GLUCOSE METER 219 mg/dL 70-110 H TESTED AT [place] [address] ([facility]) (test code = JULIANO Osborne [facility] 1538) [address] RAD, CHEST, 1 VIEW, NON [id number] 10:11:00Reason for exam:->pl effusionShould this be performed at the bedside?->YesFINAL REPORT Chest one view compared to May 26 Discussion: There is cardiac prominence. Upper lungs are clear. Ill-defined basilar densities are similar probably atelectasis. No gross effusion or pneumothorax with bilateral chest tubes in place. Signed: Jeannette Nava Verified Date/Time: 05/27/2017 10:11:44 Reading Location: [facility] Radiology Reading Room POCT-GLUCOSE METER 2017-05-27 07:05:00 Test Item Value Reference Range Interpretation Comments POC-GLUCOSE METER 167 mg/dL 70-110 H TESTED AT [place] [address] ([facility]) (test code = JULIANO Osborne [facility] 1538) [address] CALCIUM, [id number] 06:20:00 Test Item Value Reference Range Interpretation Comments CALCIUM IONIZED (BEAKER) (test 0.98 mmol/L 1.12-1.27 L code = 698) PH, BLOOD (BEAKER) (test code = 7.50 1810) [id number] 04:56:00 Test Item Value Reference Range Interpretation Comments PHOSPHORUS (BEAKER) (test code = 2.6 mg/dL 2.3-4.7 604) [id number] 04:56:00 Test Item Value Reference Range Interpretation Comments MAGNESIUM (BEAKER) (test code = 2.0 mg/dL 1.6-2.6 627) BASIC METABOLIC [id number] 04:56:00 Test Item Value Reference Range Interpretation [...] PATIEN TS. CBC W/PLT COUNT & AUTO [id number] 04:36:00 Test Item Value Reference Range Interpretation [...] PERCENT (BEAKER) (test code = 2801) POCT-GLUCOSE [id number] 21:29:00 Test Item Value Reference Range Interpretation Comments POC-GLUCOSE METER 147 mg/dL 70-110 H TESTED AT [facility] ([facility]) (test code = JULIANO Osborne [facility] 1538) [address] POCT-GLUCOSE [id number] 17:51:00 Test Item Value Reference Range Interpretation Comments POC-GLUCOSE METER 224 mg/dL 70-110 H TESTED AT [facility] 67[address] ([facility]) (test code = JULIANO Osborne [facility] 1538) [address] POCT-GLUCOSE [id number] 13:53:00 Test Item Value Reference Range Interpretation Comments POC-GLUCOSE METER 182 mg/dL 70-110 H TESTED AT [facility] 67[address] ([facility]) (test code = JULIANO Osborne [facility] 1538) [address] RAD, CHEST, 1 VIEW, NON [id number] 08:44:00Reason for exam:->pl effusionShould this be performed [...] MDReport Verified Date/Time: 05/26/2017 08:44:25 Reading Location: [address] Radiology Reading Room POCT- GLUCOSE [id number] 07:43:00 Test Item Value Reference Range Interpretation Comments POC-GLUCOSE METER 113 mg/dL 70-110 H TESTED AT [facility] 67[address] (BEAKER) (test code = JULIANO Osborne [place] 1538) [address] CALCIUM, [id number] 06:31:00 Test Item Value Reference Range Interpretation Comments CALCIUM IONIZED (BEAKER) (test 1.07 mmol/L 1.12-1.27 L code = 698) PH, BLOOD (BEAKER) (test code = 7.38 1810) [id number] 04:51:00 Test Item Value Reference Range Interpretation Comments PHOSPHORUS (BEAKER) (test code = 3.2 mg/dL 2.3-4.7 604) [id number] 04:51:00 Test Item Value Reference Range Interpretation Comments MAGNESIUM (BEAKER) (test code = 2.1 mg/dL 1.6-2.6 627) BASIC METABOLIC [id number] 04:51:00 Test Item Value Reference Range Interpretation [...] PATIEN TS. CBC W/PLT COUNT & AUTO [id number] 04:27:00 Test Item Value Reference Range Interpretation [...] PERCENT (BEAKER) (test code = 2801) POCT-GLUCOSE [id number] 23:48:00 Test Item Value Reference Range Interpretation Comments POC-GLUCOSE METER 123 mg/dL 70-110 H TESTED AT [facility] 67[address] ([facility]) (test code = [facility] 1538) [address] POCT-GLUCOSE [id number] 16:46:00 Test Item Value Reference Range Interpretation Comments POC-GLUCOSE METER 178 mg/dL 70-110 H TESTED AT [facility] 67[address] ([facility]) (test code = [facility] 1538) [address] BASIC METABOLIC [id number] 05:53:00 Test Item Value Reference Range Interpretation [...] S NOT APPLICABLE FOR DIALYSIS PATIEN TS. [id number] 05:52:00 Test Item Value Reference Range Interpretation Comments PHOSPHORUS (BEAKER) (test code = 4.2 mg/dL 2.3-4.7 604) [id number] 05:52:00 Test Item Value Reference Range Interpretation Comments MAGNESIUM (BEAKER) (test code = 2.3 mg/dL 1.6-2.6 627) CALCIUM, [id number] 05:27:00 Test Item Value Reference Range Interpretation Comments CALCIUM IONIZED (BEAKER) (test 1.12 mmol/L 1.12-1.27 code = 698) PH, BLOOD (BEAKER) (test code = 7.38 1810) CBC W/PLT COUNT & AUTO [id number] 05:07:00 Test Item Value Reference Range Interpretation [...] = 2801) RAD, CHEST, 1 VIEW, NON [id number] 04:45:00Reason for exam:->pl effusionShould this be performed [...] Verified Date/Time: 05/25/2017 04:45:08 Reading Location: [address] Body Reading Room POCT-GLUCOSE [id number] 01:52:00 Test Item Value Reference Range Interpretation Comments POC-GLUCOSE METER 126 mg/dL 70-110 H TESTED AT [facility] 67[address] ([facility]) (test code = JULIANO [place] 1538) [address] POCT-GLUCOSE [id number] 13:07:00 Test Item Value Reference Range Interpretation Comments POC-GLUCOSE METER 118 mg/dL 70-110 H TESTED AT [facility] 67[address] ([facility]) (test code = JULIANO [place] 1538) [address] BRONCHIAL CULTURE + GRAM [id number] 11:35:00 Test Item Value Reference Range Interpretation [...] <1+ gram (BEAKER) (test code = positive 895550) cocci in pairs GRAM STAIN RESULT 1+ gram (BEAKER) (test code = variable rods 032799) 1+ Normal respiratory todd presentRAD, CHEST, 1 VIEW, NON [id number] 06:50:00Reason for exam:->pl effusionShould this be performed at the bedside?->YesFINAL REPORT RAD, CHEST, 1 VIEW, NON DEPT INDICATION: pl effusion COMPARISON:Prior day's exam FINDINGS: Portable frontal view of the chest. IMPRESSION: Support Lines: Stable.Lungs and pleura: Unchanged airspace and pleural opacities. No pneumothorax.Heart and mediastinum: Stable contours. Stable surgical changes.Additional findings: None. Signed: JR Boswell Robert [facility] Verified Date/Time: 05/24/2017 06:50:08 Reading Location: [facility] B1 C013Y CT Body Reading Room BASIC METABOLIC [id number] 04:19:00 Test Item Value Reference Range Interpretation [...] NOT APPLICABLE FOR DIALYSIS PATIEN TS. CALCIUM, [id number] 04:16:00 Test Item Value Reference Range Interpretation Comments CALCIUM IONIZED (BEAKER) (test 1.06 mmol/L 1.12-1.27 L code = 698) PH, BLOOD (BEAKER) (test code = 7.40 1810) [id number] 04:11:00 Test Item Value Reference Range Interpretation Comments PHOSPHORUS (BEAKER) (test code = 6.0 mg/dL 2.3-4.7 H 604) [id number] 04:11:00 Test Item Value Reference Range Interpretation Comments MAGNESIUM (BEAKER) (test code = 2.4 mg/dL 1.6-2.6 627) CBC W/PLT COUNT & AUTO [id number] 03:50:00 Test Item Value Reference Range Interpretation [...] PERCENT (BEAKER) (test code = 2801) POCT-GLUCOSE [id number] 20:45:00 Test Item Value Reference Range Interpretation Comments POC-GLUCOSE METER 143 mg/dL 70-110 H TESTED AT [facility] 67[address] (BEAKER) (test code = JULIANO Osborne [facility] 1538) [address] POCT-GLUCOSE [id number] 20:45:00 Test Item Value Reference Range Interpretation Comments POC-GLUCOSE METER 145 mg/dL 70-110 H TESTED AT [facility] 67[address] (BEAKER) (test code = JULIANO Osborne [facility] 1538) [address] [id number] 13:37:00 Test Item Value Reference Range Interpretation Comments PREALBUMIN (BEAKER) 10 mg/dL 14-45 L Specimen slightly (test code = 586) hemolyzed OXYGEN SATURATION, [id number] 12:31:00 Test Item Value Reference Range Interpretation Comments O2 SATURATION (MEASURED) (BEAKER) 94.5 % (test code = 1455) [id number] 11:02:00 Test Item Value Reference Range Interpretation Comments PREALBUMIN (BEAKER) (test code = 10 mg/dL 14-45 L 586) RAD, CHEST, 1 VIEW, NON [id number] 05:14:00while patient is intubated or has chest [...] MDReport Verified Date/Time: 05/23/2017 05:14:04 Reading Location: [facility] B1 C013Y CT Body Reading Room BASIC METABOLIC [id number] 03:48:00 Test Item Value Reference Range Interpretation [...] S NOT APPLICABLE FOR DIALYSIS PATIEN TS. [id number] 03:46:00 Test Item Value Reference Range Interpretation Comments MAGNESIUM (BEAKER) 2.4 mg/dL 1.6-2.6 Specimen slightly (test code = 627) hemolyzed [id number] 03:46:00 Test Item Value Reference Range Interpretation Comments PHOSPHORUS (BEAKER) 6.5 mg/dL 2.3-4.7 H Specimen slightly (test code = 604) hemolyzed CBC W/PLT COUNT & AUTO [id number] 03:26:00 Test Item Value Reference Range Interpretation [...] (BEAKER) (test code = 2801) BLOOD GAS, [id number] 03:18:00 Test Item Value Reference Range Interpretation [...] (test code = 1819) 36.0 % CALCIUM, [id number] 16:32:00 Test Item Value Reference Range Interpretation Comments CALCIUM IONIZED (BEAKER) (test 1.11 mmol/L 1.12-1.27 L code = 698) PH, BLOOD (BEAKER) (test code = 7.39 1810) BASIC METABOLIC [id number] 15:43:00 Test Item Value Reference Range Interpretation [...] NOT APPLICABLE FOR DIALYSIS PATIEN TS. POCT-GLUCOSE [id number] 12:53:00 Test Item Value Reference Range Interpretation Comments POC-GLUCOSE METER 118 mg/dL 70-110 H TESTED AT [facility] 67[address] (BEAKER) (test code = KARTHIKVERA [place] 1538) [address] BLOOD GAS, [id number] 10:42:00 Test Item Value Reference Range Interpretation [...] (test code = 1819) 40.0 % POCT-GLUCOSE [id number] 06:46:00 Test Item Value Reference Range Interpretation Comments POC-GLUCOSE METER 106 mg/dL 70-110 TESTED AT [facility] 6720 (BEAKER) (test code = JULIANO [place] 1538) [address] RAD, CHEST, 1 VIEW, NON [id number] 05:05:00while patient is intubated or has chest [...] MDReport Verified Date/Time: 05/22/2017 05:05:00 Reading Location: [address] Body ReadingRoom BASIC METABOLIC [id number] 05:00:00 Test Item Value Reference Range Interpretation [...] S NOT APPLICABLE FOR DIALYSIS PATIEN TS. [id number] 04:41:00 Test Item Value Reference Range Interpretation Comments PHOSPHORUS (BEAKER) (test code = 6.4 mg/dL 2.3-4.7 H 604) [id number] 04:41:00 Test Item Value Reference Range Interpretation Comments MAGNESIUM (BEAKER) (test code = 2.6 mg/dL 1.6-2.6 627) CALCIUM, [id number] 04:26:00 Test Item Value Reference Range Interpretation Comments CALCIUM IONIZED (BEAKER) (test 1.09 mmol/L 1.12-1.27 L code = 698) PH, BLOOD (BEAKER) (test code = 7.40 1810) OXYGEN SATURATION, [id number] 04:25:00 Test Item Value Reference Range Interpretation Comments O2 SATURATION (MEASURED) (BEAKER) 77.0 % (test code = 1455) CBC W/PLT COUNT & AUTO [id number] 04:17:00 Test Item Value Reference Range Interpretation [...] code = 2801) LACTIC ACID, ARTERIAL, WHOLE [id number] 00:07:00 Test Item Value Reference Range Interpretation Comments LACTATE BLOOD 1.0 mmol/L 0.5-2.2 Specimen sligh tly ARTERIAL (2) (BEAKER) hemoly zed (test code = 2874) Effective 08/02/2015: Units/Reference Range ChangeNew: 0.5-2.2 mmol/L Previous: 5-20 mg/dLPOCT-GLUCOSE [id number] 23:47:00 Test Item Value Reference Range Interpretation Comments POC-GLUCOSE METER 180 mg/dL 70-110 H TESTED AT [facility] 6720 (BEAKER) (test code = JULIANO REYEZ 1538) [address] BLOOD GAS, [id number] 23:46:00 Test Item Value Reference Range Interpretation [...] code = 1819) 100.0 % SODIUM NA-STAT [id number] 23:46:00 Test Item Value Reference Range Interpretation Comments SODIUM (BEAKER) (test code = 381) 134 meq/L 135-148 L GLUCOSE-STAT [id number] 23:46:00 Test Item Value Reference Range Interpretation Comments GLUCOSE RANDOM (BEAKER) (test code 119 mg/dL 70-110 H = 652) HGB/HCT (H&H) - STAT [id number] 23:46:00 Test Item Value Reference Range Interpretation Comments HEMOGLOBIN (BEAKER) (test code = 8.8 g/dL 12.0-15.0 L 410) HEMATOCRIT (BEAKER) (test code = 26.0 % 36.0-45.0 L 411) OXYGEN SATURATION, [id number] 23:45:00 Test Item Value Reference Range Interpretation Comments O2 SATURATION (MEASURED) (BEAKER) 68.1 % (test code = 1455) POTASSIUM-STAT [id number] 23:45:00 Test Item Value Reference Range Interpretation Comments POTASSIUM (BEAKER) (test code = 5.5 meq/L 3.6-5.5 379) POCT-GLUCOSE [id number] 20:58:00 Test Item Value Reference Range Interpretation Comments POC-GLUCOSE METER 133 mg/dL 70-110 H TESTED AT [facility] 6720 (BEAKER) (test code = JULIANO Osborne [facility] 1538) [address] POCT-GLUCOSE [id number] 17:58:00 Test Item Value Reference Range Interpretation Comments POC-GLUCOSE METER 210 mg/dL 70-110 H TESTED AT [place] [address] ([facility]) (test code = JULIANO Osborne [facility] 1538) [address] POCT-GLUCOSE [id number] 17:58:00 Test Item Value Reference Range Interpretation Comments POC-GLUCOSE METER 211 mg/dL 70-110 H TESTED AT [place] [address] ([facility]) (test code = JULIANO Osborne [facility] 1538) [address] POCT-GLUCOSE [id number] 17:58:00 Test Item Value Reference Range Interpretation Comments POC-GLUCOSE METER 232 mg/dL 70-110 H TESTED AT [place] [address] ([facility]) (test code = JULIANO Osborne [facility] 1538) [address] POCT-GLUCOSE [id number] 17:58:00 Test Item Value Reference Range Interpretation Comments POC-GLUCOSE METER 262 mg/dL 70-110 H TESTED AT [place] [address] ([facility]) (test code = JULIANO Osborne [facility] 1538) [address] BLOOD GAS, [id number] 17:01:00 Test Item Value Reference Range Interpretation [...] (test code = 1819) 60.0 % POTASSIUM-STAT [id number] 17:00:00 Test Item Value Reference Range Interpretation Comments POTASSIUM (BEAKER) (test code = 4.8 meq/L 3.6-5.5 379) POCT-GLUCOSE [id number] 15:52:00 Test Item Value Reference Range Interpretation Comments POC-GLUCOSE METER 267 mg/dL 70-110 H TESTED AT [facility] 6720 (BEAKER) (test code = JULIANO [place] 1538) [address] POCT-GLUCOSE [id number] 14:42:00 Test Item Value Reference Range Interpretation Comments POC-GLUCOSE METER 231 mg/dL 70-110 H TESTED AT [facility] 6720 (BEAKER) (test code = JULIANO [place] 1538) [address] BODY FLUID CELL COUNT WITH [id number] 14:41:00 Test Item Value Reference Range Interpretation [...] Tube (test code = 2873) BASIC METABOLIC [id number] 14:11:00 Test Item Value Reference Range Interpretation [...] S NOT APPLICABLE FOR DIALYSIS PATIEN TS. [id number] 14:08:00 Test Item Value Reference Range Interpretation Comments PHOSPHORUS (BEDANIELA) (test code = 7.2 mg/dL 2.3-4.7 H 604) [id number] 14:08:00 Test Item Value Reference Range Interpretation Comments MAGNESIUM (BEAKER) (test code = 2.6 mg/dL 1.6-2.6 627) POCT-GLUCOSE [id number] 12:49:00 Test Item Value Reference Range Interpretation Comments POC-GLUCOSE METER 224 mg/dL 70-110 H TESTED AT [facility] 67 ([facility]) (test code = JULIANO Osborne [facility] 1538) [address] POCT-GLUCOSE [id number] 12:49:00 Test Item Value Reference Range Interpretation Comments POC-GLUCOSE METER 248 mg/dL 70-110 H TESTED AT [place] [address] ([facility]) (test code = JULIANO Osborne [facility] 1538) [address] RAD, CHEST, 1 VIEW, NON [id number] 12:32:00Reason for exam:->re-intubationShould this be performed at [...] MDReport Verified Date/Time: 05/21/2017 12:32:08 Reading Location: [facility] Radiology Reading Room POTASSIUM-STAT [id number] 12:28:00 Test Item Value Reference Range Interpretation Comments POTASSIUM (BEAKER) (test code = 5.5 meq/L 3.6-5.5 379) BLOOD GAS, [id number] 12:28:00 Test Item Value Reference Range Interpretation [...] code = 1819) 100.0 % BLOOD GAS, [id number] 10:53:00 Test Item Value Reference Range Interpretation [...] 36.0 % RAD, CHEST, 1 VIEW, NON [id number] 08:46:00while patient is intubated or has chest [...] MDReport Verified Date/Time: 05/21/2017 08:46:27 Reading Location: [facility] Radiology Reading Room BLOOD GAS, [id number] 05:41:00 Test Item Value Reference Range Interpretation [...] (BEAKER) (test code = 1819) 40 CALCIUM, [id number] 04:35:00 Test Item Value Reference Range Interpretation Comments CALCIUM IONIZED (BEAKER) (test 1.13 mmol/L 1.12-1.27 code = 698) PH, BLOOD (BEAKER) (test code = 7.32 1810) BLOOD GAS, [id number] 04:28:00 Test Item Value Reference Range Interpretation [...] (BEAKER) (test code = 1819) 40.0 % [id number] 04:20:00 Test Item Value Reference Range Interpretation Comments PHOSPHORUS (BEAKER) (test code = 6.2 mg/dL 2.3-4.7 H 604) [id number] 04:20:00 Test Item Value Reference Range Interpretation Comments MAGNESIUM (BEAKER) (test code = 2.4 mg/dL 1.6-2.6 627) HEPATIC FUNCTION [id number] 04:20:00 Test Item Value Reference Range Interpretation [...] = 11 U/L 6-55 347) BASIC METABOLIC [id number] 04:20:00 Test Item Value Reference Range Interpretation [...] APPLICABLE FOR DIALYSIS PATIEN TS. OXYGEN SATURATION, [id number] 04:18:00 Test Item Value Reference Range Interpretation Comments O2 SATURATION (MEASURED) (BEAKER) 68.0 % (test code = 1455) LACTIC ACID, ARTERIAL, WHOLE [id number] 04:12:00 Test Item Value Reference Range Interpretation Comments LACTATE BLOOD ARTERIAL (2) 1.0 mmol/L 0.5-2.2 (BEAKER) (test code = 2874) Effective 08/02/2015: Units/Reference Range ChangeNew: 0.5-2.2 mmol/L Previous: 5-20 mg/dLCBC W/PLT COUNT & AUTO [id number] 04:00:00 Test Item Value Reference Range Interpretation [...] (BEAKER) (test code = 2801) BLOOD GAS, [id number] 00:06:00 Test Item Value Reference Range Interpretation [...] (BEAKER) (test code = 1819) 40.0 % [id number] 18:55:00 Test Item Value Reference Range Interpretation Comments PHOSPHORUS (BEAKER) (test code = 4.8 mg/dL 2.3-4.7 H 604) [id number] 18:55:00 Test Item Value Reference Range Interpretation Comments MAGNESIUM (BEAKER) (test code = 2.3 mg/dL 1.6-2.6 627) BASIC METABOLIC [id number] 18:55:00 Test Item Value Reference Range Interpretation [...] DIALYSIS PATIEN TS. LACTIC ACID, ARTERIAL, WHOLE [id number] 18:53:00 Test Item Value Reference Range Interpretation Comments LACTATE BLOOD 0.9 mmol/L 0.5-2.2 Specimen sligh tly ARTERIAL (2) (BEAKER) hemoly zed (test code = 2874) Effective 08/02/2015: Units/Reference Range ChangeNew: 0.5-2.2 mmol/L Previous: 5-20 mg/dLRAD, CHEST, 1 VIEW, NON [id number] 18:44:00Reason for exam:- >postop cardiacShould this be [...] MDReport Verified Date/Time: 05/20/2017 18:44:30 Reading Location: [facility] B1 [id number] Consult Reading Room Electronically signed by: MIGUEL BHAKTA M.D. on05/20/2017 06:44 PMCBC W/PLT COUNT & AUTO [id number] 18:38:00 Test Item Value Reference Range Interpretation [...] (BEAKER) (test code = 2801) OXYGEN SATURATION, [id number] 18:36:00 Test Item Value Reference Range Interpretation Comments O2 SATURATION (MEASURED) (BEAKER) 72.5 % (test code = 1455) From distal port of IJ central venous catheterSODIUM NA-STAT [id number] 18:30:00 Test Item Value Reference Range Interpretation Comments SODIUM (BEAKER) (test code = 381) 132 meq/L 135-148 L HGB/HCT (H&H) - STAT [id number] 18:30:00 Test Item Value Reference Range Interpretation Comments HEMOGLOBIN (BEAKER) (test code = 9.4 g/dL 12.0-15.0 L 410) HEMATOCRIT (BEAKER) (test code = 28.0 % 36.0-45.0 L 411) GLUCOSE-STAT [id number] 18:30:00 Test Item Value Reference Range Interpretation Comments GLUCOSE RANDOM (BEAKER) (test code 159 mg/dL 70-110 H = 652) BLOOD GAS, [id number] 18:30:00 Test Item Value Reference Range Interpretation [...] (test code = 1819) 60.0 % CALCIUM, [id number] 18:30:00 Test Item Value Reference Range Interpretation Comments CALCIUM IONIZED (BEAKER) (test 0.94 mmol/L 1.12-1.27 L code = 698) PH, BLOOD (BEAKER) (test code = 7.34 1810) POTASSIUM-STAT [id number] 18:28:00 Test Item Value Reference Range Interpretation [...] (test 0.0 % 0.0-5.0 code = 1414) [id number] 17:53:00 Test Item Value Reference Range Interpretation Comments ACTIVATED CLOTTING TIME 103 sec TEST ED AT [facility] 6720 (BEAKER) (test code = JULIANO REYEZ [facility]) [address] [id number] 17:53:00 Test Item Value Reference Range Interpretation Comments ACTIVATED CLOTTING TIME 466 sec TEST ED AT [place] [address] ([facility]) (test code = [place]IANO [place] [address]) [address] [id number] 17:53:00 Test Item Value Reference Range Interpretation Comments ACTIVATED CLOTTING TIME 543 sec TEST ED AT [place] [address] ([facility]) (test code = [place]O [place] [address]) [address] [id number] 17:53:00 Test Item Value Reference Range Interpretation Comments ACTIVATED CLOTTING TIME 549 sec TEST ED AT [place] [address] ([facility]) (test code = [place]O [place] [address]) [address] [id number] 17:53:00 Test Item Value Reference Range Interpretation Comments ACTIVATED CLOTTING TIME 632 sec TEST ED AT [place] [address] ([facility]) (test code = [place]O [place] [address]) [address] [id number] 17:53:00 Test Item Value Reference Range Interpretation Comments ACTIVATED CLOTTING TIME 494 sec TEST ED AT [place] [address] ([facility]) (test code = [place]IANO [place] [address]) [address] [id number] 17:53:00 Test Item Value Reference Range Interpretation Comments ACTIVATED CLOTTING TIME 587 sec TEST ED AT [place] [address] ([facility]) (test code = [place]O [place] [address]) [address] [id number] 17:53:00 Test Item Value Reference Range Interpretation Comments ACTIVATED CLOTTING TIME 626 sec TEST ED AT [place] [address] ([facility]) (test code = [place]O [place] [address]) [address] [id number] 17:52:00 Test Item Value Reference Range Interpretation Comments ACTIVATED CLOTTING TIME 808 sec TEST ED AT [place] [address] ([facility]) (test code = JULIANO Osborne [place] [address]) [address] [id number] 16:54:00 Test Item Value Reference Range Interpretation Comments PARTIAL THROMBOPLASTIN TIME 40.2 seconds 22.5-36.0 H ([facility]) (test code = 760) [id number] 16:53:00 Test Item Value Reference Range Interpretation Comments FIBRINOGEN LEVEL ([facility]) (test 306 mg/dl 225-434 code = 658) PROTHROMBIN [id number] 16:50:00 Test Item Value Reference Range Interpretation Comments PROTIME (BEAKER) (test code = 19.6 seconds 11.7-14.7 H 759) INR (BEAKER) (test code = 370) 1.7 <=5.9 RECOMMENDED COUMADIN/WARFARIN INR THERAPY RANGESSTANDARD DOSE: 2.0 - 3.0 Includes: PROPHYLAXIS forvenous thrombosis, systemic embolization; TREATMENT for venous thrombosis and/or pulmonary embolus.HIGH RISK: Target INR is 2.5-3.5 for patients with mechanical heart valves.PLATELET [id number] 16:45:00 Test Item Value Reference Range Interpretation Comments PLATELET COUNT (BEAKER) (test 136 K/CU MM 150-450 L code = 756) POTASSIUM-STAT [id number] 16:15:00 Test Item Value Reference Range Interpretation Comments POTASSIUM (BEAKER) (test code = 4.9 meq/L 3.6-5.5 379) BLOOD GAS, [id number] 16:15:00 Test Item Value Reference Range Interpretation [...] code = 1819) 100.0 % SODIUM NA-STAT [id number] 16:15:00 Test Item Value Reference Range Interpretation Comments SODIUM (BEAKER) (test code = 381) 131 meq/L 135-148 L GLUCOSE-STAT [id number] 16:15:00 Test Item Value Reference Range Interpretation Comments GLUCOSE RANDOM (BEAKER) (test code 198 mg/dL 70-110 H = 652) HGB/HCT (H&H) - STAT [id number] 16:15:00 Test Item Value Reference Range Interpretation Comments HEMOGLOBIN (BEAKER) (test code = 7.5 g/dL 12.0-15.0 L 410) HEMATOCRIT (BEAKER) (test code = 22.0 % 36.0-45.0 L 411) CALCIUM, [id number] 16:14:00 Test Item Value Reference Range Interpretation Comments CALCIUM IONIZED (BEAKER) (test 0.91 mmol/L 1.12-1.27 L code = 698) PH, BLOOD (BEAKER) (test code = 7.39 1810) BLOOD GAS, [id number] 15:39:00 Test Item Value Reference Range Interpretation [...] code = 1819) 70.0 % SODIUM NA-STAT [id number] 15:39:00 Test Item Value Reference Range Interpretation Comments SODIUM (BEAKER) (test code = 381) 131 meq/L 135-148 L GLUCOSE-STAT [id number] 15:39:00 Test Item Value Reference Range Interpretation Comments GLUCOSE RANDOM (BEAKER) (test code 186 mg/dL 70-110 H = 652) HGB/HCT (H&H) - STAT [id number] 15:39:00 Test Item Value Reference Range Interpretation Comments HEMOGLOBIN (BEAKER) (test code = 7.5 g/dL 12.0-15.0 L 410) HEMATOCRIT (BEAKER) (test code = 22.0 % 36.0-45.0 L 411) POTASSIUM-STAT [id number] 15:38:00 Test Item Value Reference Range Interpretation Comments POTASSIUM (BEAKER) (test code = 5.3 meq/L 3.6-5.5 379) BLOOD GAS, [id number] 15:24:00 Test Item Value Reference Range Interpretation [...] code = 1819) 70.0 % SODIUM NA-STAT [id number] 15:24:00 Test Item Value Reference Range Interpretation Comments SODIUM (BEAKER) (test code = 381) 130 meq/L 135-148 L GLUCOSE-STAT [id number] 15:24:00 Test Item Value Reference Range Interpretation Comments GLUCOSE RANDOM (BEAKER) (test code 189 mg/dL 70-110 H = 652) HGB/HCT (H&H) - STAT [id number] 15:24:00 Test Item Value Reference Range Interpretation Comments HEMOGLOBIN (BEAKER) (test code = 6.7 g/dL 12.0-15.0 L 410) HEMATOCRIT (BEAKER) (test code = 20.0 % 36.0-45.0 L 411) POTASSIUM-STAT [id number] 15:23:00 Test Item Value Reference Range Interpretation Comments POTASSIUM (BEAKER) (test code = 5.4 meq/L 3.6-5.5 379) BLOOD GAS, [id number] 15:07:00 Test Item Value Reference Range Interpretation [...] code = 1819) 70.0 % SODIUM NA-STAT [id number] 15:07:00 Test Item Value Reference Range Interpretation Comments SODIUM (BEAKER) (test code = 381) 129 meq/L 135-148 L GLUCOSE-STAT [id number] 15:07:00 Test Item Value Reference Range Interpretation Comments GLUCOSE RANDOM (BEAKER) (test code 172 mg/dL 70-110 H = 652) HGB/HCT (H&H) - STAT [id number] 15:07:00 Test Item Value Reference Range Interpretation Comments HEMOGLOBIN (BEAKER) (test code = 7.1 g/dL 12.0-15.0 L 410) HEMATOCRIT (BEAKER) (test code = 21.0 % 36.0-45.0 L 411) POTASSIUM-STAT [id number] 15:04:00 Test Item Value Reference Range Interpretation Comments POTASSIUM (BEAKER) (test code = 5.0 meq/L 3.6-5.5 379) BLOOD GAS, [id number] 14:21:00 Test Item Value Reference Range Interpretation [...] code = 1819) 70.0 % SODIUM NA-STAT [id number] 14:21:00 Test Item Value Reference Range Interpretation Comments SODIUM (BEAKER) (test code = 381) 133 meq/L 135-148 L GLUCOSE-STAT [id number] 14:21:00 Test Item Value Reference Range Interpretation Comments GLUCOSE RANDOM (BEAKER) (test code 160 mg/dL 70-110 H = 652) HGB/HCT (H&H) - STAT [id number] 14:21:00 Test Item Value Reference Range Interpretation Comments HEMOGLOBIN (BEAKER) (test code = 7.5 g/dL 12.0-15.0 L 410) HEMATOCRIT (BEAKER) (test code = 22.0 % 36.0-45.0 L 411) POTASSIUM-STAT [id number] 14:20:00 Test Item Value Reference Range Interpretation Comments POTASSIUM (BEAKER) (test code = 4.7 meq/L 3.6-5.5 379) BLOOD GAS, [id number] 13:58:00 Test Item Value Reference Range Interpretation [...] code = 1819) 80.0 % SODIUM NA-STAT [id number] 13:58:00 Test Item Value Reference Range Interpretation Comments SODIUM (BEAKER) (test code = 381) 132 meq/L 135-148 L GLUCOSE-STAT [id number] 13:58:00 Test Item Value Reference Range Interpretation Comments GLUCOSE RANDOM (BEAKER) (test code 166 mg/dL 70-110 H = 652) HGB/HCT (H&H) - STAT [id number] 13:58:00 Test Item Value Reference Range Interpretation Comments HEMOGLOBIN (BEAKER) (test code = 7.5 g/dL 12.0-15.0 L 410) HEMATOCRIT (BEAKER) (test code = 22.0 % 36.0-45.0 L 411) POTASSIUM-STAT [id number] 13:57:00 Test Item Value Reference Range Interpretation Comments POTASSIUM (BEAKER) (test code = 4.7 meq/L 3.6-5.5 379) BLOOD GAS, [id number] 13:35:00 Test Item Value Reference Range Interpretation [...] (test code = 1819) 80.0 % GLUCOSE-STAT [id number] 13:35:00 Test Item Value Reference Range Interpretation Comments GLUCOSE RANDOM (BEAKER) (test code 130 mg/dL 70-110 H = 652) HGB/HCT (H&H) - STAT [id number] 13:35:00 Test Item Value Reference Range Interpretation Comments HEMOGLOBIN (BEAKER) (test code = 6.7 g/dL 12.0-15.0 L 410) HEMATOCRIT (BEAKER) (test code = 20.0 % 36.0-45.0 L 411) SODIUM NA-STAT [id number] 13:35:00 Test Item Value Reference Range Interpretation Comments SODIUM (BEAKER) (test code = 381) 133 meq/L 135-148 L POTASSIUM-STAT [id number] 13:34:00 Test Item Value Reference Range Interpretation Comments POTASSIUM (BEAKER) (test code = 4.2 meq/L 3.6-5.5 379) BLOOD GAS, [id number] 13:16:00 Test Item Value Reference Range Interpretation [...] code = 1819) 80.0 % SODIUM NA-STAT [id number] 13:16:00 Test Item Value Reference Range Interpretation Comments SODIUM (BEAKER) (test code = 381) 133 meq/L 135-148 L HGB/HCT (H&H) - STAT [id number] 13:16:00 Test Item Value Reference Range Interpretation Comments HEMOGLOBIN (BEAKER) (test code = 6.3 g/dL 12.0-15.0 L 410) HEMATOCRIT (BEAKER) (test code = 19.0 % 36.0-45.0 L 411) CALCIUM, [id number] 13:15:00 Test Item Value Reference Range Interpretation Comments CALCIUM IONIZED (BEAKER) (test 0.98 mmol/L 1.12-1.27 L code = 698) PH, BLOOD (BEAKER) (test code = 7.34 1810) BLOOD GAS, [id number] 13:15:00 Test Item Value Reference Range Interpretation [...] (test code = 1819) 80.0 % GLUCOSE-STAT [id number] 13:14:00 Test Item Value Reference Range Interpretation Comments GLUCOSE RANDOM (BEAKER) (test code = 92 mg/dL 70-110 652) POTASSIUM-STAT [id number] 13:14:00 Test Item Value Reference Range Interpretation Comments POTASSIUM (BEAKER) (test code = 3.9 meq/L 3.6-5.5 379) BLOOD GAS, [id number] 10:54:00 Test Item Value Reference Range Interpretation [...] 1819) 100.0 % HGB/HCT (H&H) - STAT [id number] 10:54:00 Test Item Value Reference Range Interpretation Comments HEMOGLOBIN (BEAKER) (test code = 9.3 g/dL 12.0-15.0 L 410) HEMATOCRIT (BEAKER) (test code = 27.0 % 36.0-45.0 L 411) SODIUM NA-STAT [id number] 10:54:00 Test Item Value Reference Range Interpretation Comments SODIUM (BEAKER) (test code = 381) 132 meq/L 135-148 L GLUCOSE-STAT [id number] 10:52:00 Test Item Value Reference Range Interpretation Comments GLUCOSE RANDOM (BEAKER) (test code = 94 mg/dL 70-110 652) POTASSIUM-STAT [id number] 10:52:00 Test Item Value Reference Range Interpretation Comments POTASSIUM (BEAKER) (test code = 4.0 meq/L 3.6-5.5 379) HEMOGLOBIN [id number] 09:50:00 Test Item Value Reference Range Interpretation Comments HEMOGLOBIN A1C (BEAKER) (test code = 10.6 % 4.3-6.1 H 368) PLATELET AGGREGATION: FUNCTION [id number] 08:27:00 Test Item Value Reference Range Interpretation Comments WEAK ADP 63 % 60-91 RESULT(BEAKER) (test code = 2135) PLATELET FUNCTION 60-100% indicates SCREEN INTERP (BEAKER) normal platelet (test code = 2173) function [id number] Toshia Post MD (BEAKER) (test code = (electronic signature) 8172) PLATELET COUNT AGG 198 K/CU MM 150-450 (BEAKER) (test code = 2656) for patients on clopidogrel in past two weeksPOCT-GLUCOSE [id number] 08:11:00 Test Item Value Reference Range Interpretation Comments POC-GLUCOSE METER 116 mg/dL 70-110 H TESTED AT [facility] 6720 (BEAKER) (test code = JLUIANO Osborne [place] 1538) [address] [id number] 07:10:00 Test Item Value Reference Range Interpretation Comments PHOSPHORUS (BEAKER) (test code = 4.5 mg/dL 2.3-4.7 604) [id number] 07:10:00 Test Item Value Reference Range Interpretation Comments MAGNESIUM (BEAKER) (test code = 2.1 mg/dL 1.6-2.6 627) BASIC METABOLIC [id number] 07:10:00 Test Item Value Reference Range Interpretation [...] = 700) CBC W/PLT COUNT & AUTO [id number] 06:46:00 Test Item Value Reference Range Interpretation [...] PERCENT (BEAKER) (test code = 2801) CALCIUM, [id number] 06:40:00 Test Item Value Reference Range Interpretation Comments CALCIUM IONIZED (BEAKER) (test 1.06 mmol/L 1.12-1.27 L code = 698) PH, BLOOD (BEAKER) (test code = 7.39 1810) POCT-GLUCOSE [id number] 23:22:00 Test Item Value Reference Range Interpretation Comments POC-GLUCOSE METER 165 mg/dL 70-110 H TESTED AT [facility] 6720 (AKER) (test code = JULIANO Osborne [facility] 1538) [address] URINE PROTEIN ELECTROPHORESIS, [id number] 18:02:00 Test Item Value Reference Range Interpretation Comments PROTEIN, URINE 305 mg/dL 0-14 H (BEAKER) (test code = 1569) ALBUMIN URINE ELP 70.9 % (BEAKER) (test code = 1018) GAMMA GLOBULIN URINE 29.1 % (BEAKER) (test code = 1015) UPEP, ID-438 (BEAKER) No monoclonal bands (test code = 2604) detected. [id number] Rocio Galindo MD ([facility]) (test code = (electronic signature) 1675) PROTEIN ELECTROPHORESIS, [id number] 17:57:00 Test Item Value Reference Range Interpretation [...] all globulin fractions. No monoclonal bands detected. [id number] Rocio Galindo MD (BEAKER) (test code = (electronic signature) 1941) PROTEIN TOTAL SERUM, 5.5 gm/dL 6.0-8.3 L SPEP (BEAKER) (test code = 1580) POCT-GLUCOSE [id number] 17:15:00 Test Item Value Reference Range Interpretation Comments POC-GLUCOSE METER 209 mg/dL 70-110 H TESTED AT [facility] 6720 (BEAKER) (test code = JULIANO Osborne [facility] 1538) [address] BLOOD GAS, [id number] 15:54:00 Test Item Value Reference Range Interpretation [...] 36.0 % RAD, CHEST, 1 VIEW, NON [id number] 14:07:00Reason for exam:->SOB, hypoxemiaShould this be performed [...] Regan Cespedes Verified Date/Time: 05/19/2017 14:07:07 Reading Location:[address] Consult Reading Room POCT-GLUCOSE [id number] 11:26:00 Test Item Value Reference Range Interpretation Comments POC-GLUCOSE METER 262 mg/dL 70-110 H TESTED AT [place] [address] [facility] (test code = JULIANO Osborne [facility] 1538) [address] POCT-GLUCOSE [id number] 07:37:00 Test Item Value Reference Range Interpretation Comments POC-GLUCOSE METER 170 mg/dL 70-110 H TESTED AT [place] [address] ([facility] (test code = [facility] [employer] [facility] 1538) [address] CALCIUM, [id number] 06:06:00 Test Item Value Reference Range Interpretation Comments CALCIUM IONIZED (BEAKER) (test 1.05 mmol/L 1.12-1.27 L code = 698) PH, BLOOD (BEAKER) (test code = 7.41 1810) [id number] 05:38:00 Test Item Value Reference Range Interpretation Comments PHOSPHORUS (BEAKER) (test code = 3.9 mg/dL 2.3-4.7 604) [id number] 05:38:00 Test Item Value Reference Range Interpretation Comments MAGNESIUM (BEAKER) (test code = 2.2 mg/dL 1.6-2.6 627) BASIC METABOLIC [id number] 05:38:00 Test Item Value Reference Range Interpretation [...] PATIEN TS. CBC W/PLT COUNT & AUTO [id number] 05:09:00 Test Item Value Reference Range Interpretation [...] PERCENT (BEAKER) (test code = 2801) POCT-GLUCOSE [id number] 22:08:00 Test Item Value Reference Range Interpretation Comments POC-GLUCOSE METER 263 mg/dL 70-110 H TESTED AT [place] [address] ([facility]) (test code = [facility] [employer] [facility] 1538) [address] POCT-GLUCOSE [id number] 17:20:00 Test Item Value Reference Range Interpretation Comments POC-GLUCOSE METER 233 mg/dL 70-110 H TESTED AT [place] [address] ([facility]) (test code = [facility] 1538) [address] POCT-GLUCOSE [id number] 08:28:00 Test Item Value Reference Range Interpretation Comments POC-GLUCOSE METER 154 mg/dL 70-110 H TESTED AT [place] [address] ([facility]) (test code = [facility] 1538) [address] BASIC METABOLIC [id number] 06:41:00 Test Item Value Reference Range Interpretation [...] S NOT APPLICABLE FOR DIALYSIS PATIEN TS. [id number] 06:35:00 Test Item Value Reference Range Interpretation Comments PHOSPHORUS (BEAKER) (test code = 4.1 mg/dL 2.3-4.7 604) [id number] 06:35:00 Test Item Value Reference Range Interpretation Comments MAGNESIUM (BEAKER) (test code = 2.1 mg/dL 1.6-2.6 627) CALCIUM, [id number] 06:22:00 Test Item Value Reference Range Interpretation Comments CALCIUM IONIZED (BEAKER) (test 1.10 mmol/L 1.12-1.27 L code = 698) PH, BLOOD (BEAKER) (test code = 7.38 1810) CBC W/PLT COUNT & AUTO [id number] 06:04:00 Test Item Value Reference Range Interpretation [...] PERCENT (BEAKER) (test code = 2801) POCT-GLUCOSE [id number] 03:44:00 Test Item Value Reference Range Interpretation Comments POC-GLUCOSE METER 220 mg/dL 70-110 H TESTED AT [place] [address] ([facility]) (test code = [place] 1538) [address] POCT-GLUCOSE [id number] 18:27:00 Test Item Value Reference Range Interpretation Comments POC-GLUCOSE METER 256 mg/dL 70-110 H TESTED AT [place] [address] (BEAKER) (test code = JULIANO Osborne [facility] 1538) [address] POCT-GLUCOSE [id number] 15:45:00 Test Item Value Reference Range Interpretation Comments POC-GLUCOSE METER 278 mg/dL 70-110 H TESTED AT [place] [address] (BEAKER) (test code = JULIANO Osborne [facility] 1538) [address] POCT-GLUCOSE [id number] 13:22:00 Test Item Value Reference Range Interpretation Comments POC-GLUCOSE METER 278 mg/dL 70-110 H TESTED AT [facility] 6720 (BEAKER) (test code = JULIANO Osborne [place] 1538) [address] PLATELET AGGREGATION: FUNCTION [id number] 13:18:00 Test Item Value Reference Range Interpretation Comments WEAK ADP 66 % 60-91 RESULT(BEAKER) (test code = 2135) PLATELET FUNCTION 60-100% indicates SCREEN INTERP (BEAKER) normal platelet (test code = 2173) function [id number] Rigoberto Duenas MD (BEAKER) (test code = (electronic signature) 2621) PLATELET COUNT AGG 204 K/CU MM 150-450 (BEAKER) (test code = 2656) POCT-GLUCOSE [id number] 08:27:00 Test Item Value Reference Range Interpretation Comments POC-GLUCOSE METER 189 mg/dL 70-110 H TESTED AT [facility] 6720 ([facility]) (test code = [place]IANO [place] 1538) [address] CALCIUM, [id number] 06:12:00 Test Item Value Reference Range Interpretation Comments CALCIUM IONIZED (BEAKER) (test 1.07 mmol/L 1.12-1.27 L code = 698) PH, BLOOD (BEAKER) (test code = 7.36 1810) [id number] 05:43:00 Test Item Value Reference Range Interpretation Comments PHOSPHORUS (BEAKER) (test code = 3.6 mg/dL 2.3-4.7 604) [id number] 05:43:00 Test Item Value Reference Range Interpretation Comments MAGNESIUM (BEAKER) (test code = 2.1 mg/dL 1.6-2.6 627) BASIC METABOLIC [id number] 05:43:00 Test Item Value Reference Range Interpretation [...] PATIEN TS. CBC W/PLT COUNT & AUTO [id number] 05:05:00 Test Item Value Reference Range Interpretation [...] NEUTROPHILS ABSOLUTE COUNT 5.41 K/ L 1.56-6.13 ([facility]) (test code = [...] [facility] [place] (test code = 2801) POCT-GLUCOSE [id number] 21:32:00 Test Item Value Reference Range Interpretation Comments POC-GLUCOSE METER 176 mg/dL 70-110 H TESTED AT [place] [address] ([facility]) (test code = [employer] [facility] 1538) [address] POCT-GLUCOSE [id number] 20:27:00 Test Item Value Reference Range Interpretation Comments POC-GLUCOSE METER 161 mg/dL 70-110 H TESTED AT [place] [address] ([facility]) (test code = [employer] [place] 1538) [address] POCT-GLUCOSE [id number] 18:23:00 Test Item Value Reference Range Interpretation Comments POC-GLUCOSE METER 185 mg/dL 70-110 H TESTED AT [place] [address] ([facility]) (test code = [employer] [place] 1538) [address] POCT-GLUCOSE [id number] 13:26:00 Test Item Value Reference Range Interpretation Comments POC-GLUCOSE METER 282 mg/dL 70-110 H TESTED AT [place] [address] ([facility]) (test code = [employer] [place] 1538) [address] URINE [id number] 10:12:00 Test Item Value Reference Range Interpretation Comments CULTURE ([facility]) (test >100,000 col/mL skin code = 1095) todd POCT-GLUCOSE [id number] 09:01:00 Test Item Value Reference Range Interpretation Comments POC-GLUCOSE METER 268 mg/dL 70-110 H TESTED AT [place] [address] ([facility]) (test code = [employer] [facility] 1538) [address] CALCIUM, [id number] 05:39:00 Test Item Value Reference Range Interpretation Comments CALCIUM IONIZED (BEAKER) (test 0.84 mmol/L 1.12-1.27 L code = 698) PH, BLOOD (BEAKER) (test code = 7.35 1810) BASIC METABOLIC [id number] 05:07:00 Test Item Value Reference Range Interpretation [...] S NOT APPLICABLE FOR DIALYSIS PATIEN TS. [id number] 05:06:00 Test Item Value Reference Range Interpretation Comments PHOSPHORUS (BEAKER) (test code = 3.2 mg/dL 2.3-4.7 604) [id number] 05:06:00 Test Item Value Reference Range Interpretation Comments MAGNESIUM (BEAKER) (test code = 2.3 mg/dL 1.6-2.6 627) CBC W/PLT COUNT & AUTO [id number] 04:42:00 Test Item Value Reference Range Interpretation [...] = 2801) RHEUMATOID FACTOR AB, REFLEX TO [id number] 01:52:00 Test Item Value Reference Range Interpretation Comments RHEUMATOID FACTOR (BEAKER) (test Negative code = 573) POCT-GLUCOSE [id number] 21:57:00 Test Item Value Reference Range Interpretation Comments POC-GLUCOSE METER 105 mg/dL 70-110 TESTED AT [facility] 6720 ([place]OBERT) (test code = JULIANO Osborne [facility] 1538) [address] POCT-GLUCOSE [id number] 18:11:00 Test Item Value Reference Range Interpretation Comments POC-GLUCOSE METER 312 mg/dL 70-110 H Notified Dylon Austin MD/TESTED ([place]) (test code = AT [facility] 67[address] [place] 1538) [facility] 7703 0 PET, CARDIAC PERFUSION MULTIPLE STUDIES, REST AND [id number] 16:28:00 Reason for exam:->pvcs, known cadFINAL REPORT PROCEDURE: Rest/Stress MYOCARDIAL PERFUSION PET with regadenoson\\XA9\\ CPT CODE: 46216 INDICATION: Defined extent and severity of known [...] is 23%. LVEF at stress is 36%. [employer] CT images revealed a right pleural effusion [...] pleural and pericardial effusions. 7. No previous [facility] study for comparison. NONINVASIVE RISK STRATIFICATION: The above findings are considered high risk (>3% annual mortality rate) based on the following criteria: - Severe resting left ventricular dysfunction (LVEF 35%)- Stress-induced large perfusion defect (particularly if anterior)(JACC. 2012;59(9):857-81.) Signed: Natan Whaley Verified Date/Time: 05/15/2017 16:28:12 Reading Location: [address] ReadingRoom RAD, CHEST, 1 VIEW, NON [id number] 15:56:00Reason for exam:->SOBShould this be performed at the bedside?->YesFINAL REPORT Comparison: 05/14/2017 TECHNIQUE: Single view of the chest FINDINGS: There is a small right pleural effusion with nonspecific airspace disease. This is unchanged. Left lung is grossly clear. Cardiac silhouette is enlarged. IMPRESSION: 1. No acute cardiopulmonary disease. Signed: Sixto Monk MDReport Verified Date/Time: 05/15/2017 15:56:39 Reading Location: [facility] iology Reading Room POCT-GLUCOSE [id number] 12:54:00 Test Item Value Reference Range Interpretation Comments POC-GLUCOSE METER 308 mg/dL 70-110 H Notified Dylon Austin MD/NATHAN (ROBERT) (test code = AT [facility] [address]) [facility] 7703 0 U/S, RENAL WITH [id number] 11:04:00Reason for exam:->tracy, htnShould this be performed [...] MDReport Verified Date/Time: 05/15/2017 11:04:01 Reading Location: [place] [id number] Ultrasound Reading Room ANA TITER AND [id number] 10:57:00 Test Item Value Reference Range Interpretation Comments ROGER TITER (BEAKER) (test code = :160 1541) ROGER PATTERN (BEAKER) (test code = Speckled 1781) ANTI-NUCLEAR ANTIBODY (ROGER)2017-05-15 10:56:00 Test Item Value Reference Range Interpretation Comments ANTI-NUCLEAR ANTIBODY (ROGER) (BEAKER) Positive Negative A (test code = 418) CALCIUM, [id number] 06:00:00 Test Item Value Reference Range Interpretation Comments CALCIUM IONIZED (BEAKER) (test 1.07 mmol/L 1.12-1.27 L code = 698) PH, BLOOD (BEAKER) (test code = 7.28 1810) HEPATITIS PANEL, [id number] 05:01:00 Test Item Value Reference Range Interpretation Comments HEPATITIS A IGM ANTIBODY (BEAKER) Nonreactive Nonreactive (test code = 498) HEPATITIS B CORE IGM ANTIBODY Nonreactive Nonreactive (BEAKER) (test code = 645) HEPATITIS C ANTIBODY (BEAKER) Nonreactive Nonreactive (test code = 367) HEPATITIS B SURFACE ANTIGEN (2) Nonreactive Nonreactive (BEAKER) (test code = 2585) BASIC METABOLIC [id number] 04:48:00 Test Item Value Reference Range Interpretation [...] NOT APPLICABLE FOR DIALYSIS PATIEN TS. URIC [id number] 04:41:00 Test Item Value Reference Range Interpretation Comments URIC ACID (BEAKER) (test code = 10.3 mg/dL 2.6-7.2 H 773) [id number] 04:41:00 Test Item Value Reference Range Interpretation Comments MAGNESIUM (BEAKER) (test code = 2.0 mg/dL 1.6-2.6 627) [id number] 04:41:00 Test Item Value Reference Range Interpretation Comments PHOSPHORUS (BEAKER) (test code = 4.2 mg/dL 2.3-4.7 604) COMPLEMENT COMPONENT [id number] 04:38:00 Test Item Value Reference Range Interpretation Comments C4 COMPLEMENT (BEAKER) (test code = 28 mg/dL 15-57 394) COMPLEMENT COMPONENT [id number] 04:38:00 Test Item Value Reference Range Interpretation Comments C3 COMPLEMENT (BEAKER) (test code = 103 mg/dL 82-193 393) CBC W/PLT COUNT & AUTO [id number] 04:22:00 Test Item Value Reference Range Interpretation [...] PERCENT (BEAKER) (test code = 2801) POCT-GLUCOSE [id number] 21:46:00 Test Item Value Reference Range Interpretation Comments POC-GLUCOSE METER 173 mg/dL 70-110 H TESTED AT [place] [address] ([facility]) (test code = KARTHIKVERA Dylon [facility] 1538) [address] POCT-GLUCOSE [id number] 21:46:00 Test Item Value Reference Range Interpretation Comments POC-GLUCOSE METER 154 mg/dL 70-110 H TESTED AT [place] [address] ([facility]) (test code = [facility] Dylon [facility] 1538) [id number] POCT-GLUCOSE [id number] 18:17:00 Test Item Value Reference Range Interpretation Comments POC-GLUCOSE METER 175 mg/dL 70-110 H TESTED AT [place] [address] ([facility]) (test code = [facility] Dylon [facility] 1538) [address] RAD, CHEST, 1 VIEW, NON [id number] 14:56:00Reason for exam:->SOBShould this be performed at the bedside?->YesFINAL REPORT INDICATION: SOB COMPARISON: May 13, 2017 TECHNIQUE: Chest radiograph, single view, portable technique. FINDINGS / IMPRESSION: Enlarged heart shadow, small rightpleural effusion, and pulmonary venous congestion, again demonstrated. No pneumothorax or consolidation. Osseous structures unremarkable. Signed: Thania Dwyer MDReport Verified Date/Time: 05/14/2017 14:56:58 Reading Location: [facility] Mammo Reading Room POCT-GLUCOSE [id number] 12:18:00 Test Item Value Reference Range Interpretation Comments POC-GLUCOSE METER 313 mg/dL 70-110 H TESTED AT [facility] [address] ([facility]) (test code = JULIANO RUTH [place] 1538) [address] HIV-1 ANTIGEN WITH HIV-1/2 [id number] 12:07:00 Test Item Value Reference Range Interpretation Comments HIV-1 ANTIGEN WITH HIV 1\\T\\2 Nonreactive Nonreactive ANTIBODY (2) (BEAKER) (test code = 2586) CALCIUM, [id number] 06:37:00 Test Item Value Reference Range Interpretation Comments CALCIUM IONIZED (BEAKER) (test 1.08 mmol/L 1.12-1.27 L code = 698) PH, BLOOD (BEAKER) (test code = 7.25 1810) BASIC METABOLIC [id number] 06:26:00 Test Item Value Reference Range Interpretation [...] pg/mL 0-100 H (test code = 700) [id number] 06:25:00 Test Item Value Reference Range Interpretation Comments PHOSPHORUS (BEAKER) (test code = 5.7 mg/dL 2.3-4.7 H 604) [id number] 06:25:00 Test Item Value Reference Range Interpretation Comments MAGNESIUM (BEAKER) (test code = 1.5 mg/dL 1.6-2.6 L 627) CBC W/PLT COUNT & AUTO [id number] 06:07:00 Test Item Value Reference Range Interpretation [...] PERCENT (BEAKER) (test code = 2801) POCT-GLUCOSE [id number] 22:38:00 Test Item Value Reference Range Interpretation Comments POC-GLUCOSE METER 262 mg/dL 70-110 H TESTED AT [facility] [address] (BEAKER) (test code = JULIANO Osborne [place] 1538) [address] PROTEIN, RANDOM [id number] 22:18:00 Test Item Value Reference Range Interpretation Comments PROTEIN, URINE (BEAKER) (test code 641 mg/dL 0-14 H = 1569) CREATININE, RANDOM [id number] 22:07:00 Test Item Value Reference Range Interpretation Comments CREATININE URINE (BEAKER) (test 124.9 mg/dL code = 375) Reference Range: No NormalsURINALYSIS W/ [id number] 22:03:00 Test Item Value Reference Range Interpretation [...] 1585) SOURCE(BEAKER) (test code = Urine, Voided 0298) [id number] 19:49:00 Test Item Value Reference Range Interpretation Comments SODIUM (BEAKER) (test 136 meq/L 136-145 code = 381) POTASSIUM (BEAKER) 5.1 meq/L 3.5-5.1 Specimen slightly (test code = 379) hemolyzed CHLORIDE (BEAKER) 104 meq/L 98-107 (test code = 382) CO2 (BEAKER) (test 25 meq/L 22-29 code = 355) Call if K > 5POCT-GLUCOSE [id number] 11:37:00 Test Item Value Reference Range Interpretation Comments POC-GLUCOSE METER 293 mg/dL 70-110 H TESTED AT [facility] [address] (BEAKER) (test code = JULIANO Dylon [facility] 1538) [address] RAD, CHEST, 1 VIEW, NON [id number] 10:22:00Reason for exam:->SOBShould this be performed at the bedside?->YesFINAL REPORT Chest one view Discussion: There is cardiomegaly and interstitial congestion. A small right-sided effusion is noted. No pneumothorax. IMPRESSIONS: Suspected CHF. Signed: Nisbet, Jeannette MDReport Verified Date/Time: 05/13/2017 10:22:34 [facility] POCT-GLUCOSE METER 2017-05-13 08:34:00 Test Item Value Reference Range Interpretation Comments POC-GLUCOSE METER 178 mg/dL 70-110 H TESTED AT [facility] [address] (BEAKER) (test code = JULIANO Osborne [facility] 1538) [address] POCT-GLUCOSE [id number] 06:53:00 Test Item Value Reference Range Interpretation Comments POC-GLUCOSE METER 167 mg/dL 70-110 H TESTED AT [facility] [address] (BEAKER) (test code = [facility] 1538) [address] [id number] 04:48:00 Test Item Value Reference Range Interpretation Comments BLOOD UREA NITROGEN (BEAKER) (test 36 mg/dL 7-21 H code = 354) [id number] 04:48:00 Test Item Value Reference Range Interpretation Comments SODIUM (BEAKER) (test code = 381) 139 meq/L 136-145 POTASSIUM (BEAKER) (test code = 5.2 meq/L 3.5-5.1 H 379) CHLORIDE (BEAKER) (test code = 382) 109 meq/L 98-107 H CO2 (BEAKER) (test code = 355) 23 meq/L 22-29 [id number] 04:48:00 Test Item Value Reference Range Interpretation [...] WBC 0-0 (BEAKER) (test code = 413) [id number] 23:29:00 Test Item Value Reference Range Interpretation Comments ACTIVATED CLOTTING TIME 136 sec TEST ED AT [place] [address] ([facility]) (test code = JULIANO Osborne [place] [address]) [address] [id number] 20:13:00 Test Item Value Reference Range Interpretation Comments ACTIVATED CLOTTING TIME 175 sec TEST ED AT [place] [address] ([facility]) (test code = JULIANO Osborne [place] [address]) [address] [id number] 18:36:00 Test Item Value Reference Range Interpretation Comments ACTIVATED CLOTTING TIME 202 sec TEST ED AT [place] [address] ([facility]) (test code = KARTHIKVERA Osborne [place] [address]) [address] [id number] 18:03:00 Test Item Value Reference Range Interpretation Comments ACTIVATED CLOTTING TIME 208 sec TEST ED AT [place] [address] ([facility]) (test code = KARTHIKVERA Osborne [place] [address]) [address] BASIC METABOLIC [id number] 11:57:00 Test Item Value Reference Range Interpretation [...] NOT APPLICABLE FOR DIALYSIS PATIEN TS. PROTHROMBIN [id number] 11:15:00 Test Item Value Reference Range Interpretation [...] if on CoumadinCBC W/PLT COUNT & AUTO [id number] 11:01:00 Test Item Value Reference Range Interpretation [...] PERCENT (BEAKER) (test code = 2801) POCT-GLUCOSE [id number] 12:35:00 Test Item Value Reference Range Interpretation Comments POC-GLUCOSE METER 249 mg/dL 70-110 H TESTED AT [facility] [address] (BEAKER) (test code = JULIANO [place] 1538) [address] POCT-GLUCOSE [id number] 09:10:00 Test Item Value Reference Range Interpretation Comments POC-GLUCOSE METER 155 mg/dL 70-110 H TESTED AT [facility] [address] (BEAKER) (test code = JULIANO [place] 1538) [address] BASIC METABOLIC [id number] 05:39:00 Test Item Value Reference Range Interpretation [...] S NOT APPLICABLE FOR DIALYSIS PATIEN TS. [id number] 05:27:00 Test Item Value Reference Range Interpretation Comments PHOSPHORUS (BEAKER) (test code = 5.0 mg/dL 2.3-4.7 H 604) [id number] 05:27:00 Test Item Value Reference Range Interpretation Comments MAGNESIUM (BEAKER) (test code = 1.6 mg/dL 1.6-2.6 627) POCT-GLUCOSE [id number] 05:25:00 Test Item Value Reference Range Interpretation Comments POC-GLUCOSE METER 144 mg/dL 70-110 H TESTED AT [facility] [address] (BEAKER) (test code = JULIANO Osborne [place] 1538) [address] PROTHROMBIN [id number] 04:58:00 Test Item Value Reference Range Interpretation Comments PROTIME (BEAKER) (test code = 14.2 seconds 11.7-14.7 759) INR (BEAKER) (test code = 370) 1.1 <=5.9 RECOMMENDED COUMADIN/WARFARIN INR THERAPY RANGESSTANDARD DOSE: 2.0 - 3.0 Includes: PROPHYLAXIS forvenous thrombosis, systemic embolization; TREATMENT for venous thrombosis and/or pulmonary embolus.HIGH RISK: Target INR is 2.5-3.5 for patients with mechanical heart valves.POCT-GLUCOSE [id number] 23:55:00 Test Item Value Reference Range Interpretation Comments POC-GLUCOSE METER 86 mg/dL 70-110 TEST[facility] AT [place] [address] [facility] (test code = BANNERVERA Osborne [facility] [address] 1538) B-TYPE NATRIURETIC FACTOR (BNP)2017-04-22 18:13:00 Test Item Value Reference Range Interpretation Comments B-TYPE NATRIURETIC PEPTIDE 1203 pg/mL 0-100 H (BEAKER) (test code = 700) POCT-GLUCOSE [id number] 17:36:00 Test Item Value Reference Range Interpretation Comments POC-GLUCOSE METER 259 mg/dL 70-110 H TESTED AT [place] [address] ([facility]) (test code = [facility] 1538) [address] HEMOGLOBIN [id number] 14:24:00 Test Item Value Reference Range Interpretation Comments HEMOGLOBIN A1C (BEAKER) (test code = 10.5 % 4.3-6.1 H 368) POCT-GLUCOSE [id number] 12:34:00 Test Item Value Reference Range Interpretation Comments POC-GLUCOSE METER 207 mg/dL 70-110 H TESTED AT [place] [address] ([facility]) (test code = [facility] 1538) [address] [id number] 07:53:00 Test Item Value Reference Range Interpretation Comments PHOSPHORUS (BEAKER) (test code = 3.9 mg/dL 2.3-4.7 604) [id number] 07:53:00 Test Item Value Reference Range Interpretation Comments MAGNESIUM (BEAKER) (test code = 1.6 mg/dL 1.6-2.6 627) BASIC METABOLIC [id number] 07:53:00 Test Item Value Reference Range Interpretation [...] NOT APPLICABLE FOR DIALYSIS PATIEN TS. TROPONIN [id number] 07:29:00 Test Item Value Reference Range Interpretation [...] acidosis, acute neurological disease, and persistent tachyarrhythmia.PROTHROMBIN [id number] 07:01:00 Test Item Value Reference Range Interpretation Comments PROTIME (ROBERT) (test code = 13.8 seconds 11.7-14.7 759) INR (ROBERT) (test code = 370) 1.1 <=5.9 RECOMMENDED COUMADIN/WARFARIN INR THERAPY RANGESSTANDARD DOSE: 2.0 - 3.0 Includes: PROPHYLAXIS forvenous thrombosis, systemic embolization; TREATMENT for venous thrombosis and/or pulmonary embolus.HIGH RISK: Target INR is 2.5-3.5 for patients with mechanical heart valves.POCT-GLUCOSE [id number] 06:28:00 Test Item Value Reference Range Interpretation Comments POC-GLUCOSE METER 198 mg/dL 70-110 H TESTED AT [facility] [address] (ROBERT) (test code = JULIANO Osborne [place] 1538) [address] CREATINE KINASE (CK), TOTAL AND [id number] 00:49:00 Test Item Value Reference Range Interpretation Comments CREATINE KINASE TOTAL (SERVANDOAKER) 69 U/L 29-200 (test code = 380) CREATINE KINASE-MB (SERVANDOAKER) (test 4.3 ng/mL 0.0-6.6 code = 750) CREATINE KINASE-MB INDEX (SERVANDOAKER) 6.2 % (test code = 395) CK-MB Reference Range:<6.7 Normal6.7-10.0 Borderline>10.0 AbnormalTROPONIN [id number] 00:49:00 Test Item Value Reference Range Interpretation [...] acidosis, acute neurological disease, and persistent tachyarrhythmia.POCT-GLUCOSE [id number] 20:44:00 Test Item Value Reference Range Interpretation Comments POC-GLUCOSE METER 269 mg/dL 70-110 H TESTED AT [facility] [address] (ROBERT) (test code = JULIANO REYEZ 4176) [address]
[2020-11-06] MEDS ORDERED: ONDANSETRON 4 MG/2 ML VIAL IV PRN (21:42)
[2020-11-06] MEDS ORDERED: ACETAMINOPHEN 500 MG TAB PO PRN (21:42)
[2020-11-06] MEDS ORDERED: Levofloxacin 750mg IV 750 MG/150 ML BAG IV ONE (21:42)
[2020-11-06] MEDS ORDERED: CODEINE 30MG/APAP 300MG TAB PO PRN (21:43)
[2020-11-06 22:54] VITALS: BMI 28.0
[2020-11-06 23:29] LABS: Absolute Lymphocytes (CBC) 1.5 K/uL (0.7-4.9); Hematocrit 34.6 % (36.0-45.0); MPV 6.8 fL (7.6-11.3)
[2020-11-06 23:48] LABS: Albumin 2.7 g/dL (3.4-5.0); Bilirubin Total 0.3 mg/dL (0.2-1.0); Potassium 4.7 mmol/L (3.5-5.1); Protein, Total 6.8 g/dL (6.4-8.2)
--- NOTE | 2020-11-07 00:05 | P.HP ---
Certification for Inpatient Patient admitted to: Inpatient With expected LOS: <2 Midnights Patient will require the following post-hospital care: None Practitioner: I am a practitioner with admitting privileges, knowledge of patient current condition, hospital course, and medical plan of care. Services: Services provided to patient in accordance with Admission requirements found in Title 42 Section 412.3 of the Code of Federal Regulations Patient History Date of Service: 11/06/20 Reason for admission: cellulitis History of Present Illness: Ms. Priest is a 65 yo F with multiple medical problems including ESRD on HD and T2DM who presents with cellulitis [facility] for symptoms of volume overload. She says increased pain, swelling, and soreness began two days ago in her right foot. She has erythema on dorsum of foot and lower leg, and a large blister on her right toe. She denies SOB, ESPITIA, fever, nausea and vomiting. She says she has not missed a dialysis appointment. Allergies morphine Allergy (Severe, Verified 10/11/20 04:32) Anaphylaxis vancomycin Allergy (Intermediate, Verified 10/11/20 04:32) Shortness of breath basil Allergy (Verified 10/11/20 04:32) Nausea/Vomiting tramadol Allergy (Verified 10/11/20 04:32) Nausea/Vomiting trazodone Allergy (Verified 10/11/20 04:32) Nausea/Vomiting nitroglycerin Adverse Reaction (Mild, Verified 10/11/20 04:32) Nausea/Vomiting Home Medications: Allopurinol 100 mg PO BID 06/13/20 Aspirin 81 mg PO DAILY 06/13/20 Atorvastatin Calcium [Lipitor] 40 mg PO BEDTIME 06/13/20 Clopidogrel Bisulfate [Plavix*] 75 mg PO DAILY 06/13/20 Fluticasone [Flovent Hfa 110*] 2 puff IN DAILY 06/13/20 Hydralazine [Apresoline*] 25 mg PO TID 06/13/20 carvediloL [Carvedilol] 6.25 mg PO BID 06/13/20 lisinopriL [Prinivil*] 5 mg PO DAILY 06/13/20 Cholestyramine (with Sugar) [Cholestyramine Packet] 1 packet PO DAILY PRN 06/14/20 Furosemide [Lasix*] 2 tab PO BID 06/14/20 Gabapentin [Neurontin*] 200 mg PO TID 06/14/20 Sertraline HCl 25 mg PO DAILY 06/14/20 Dicyclomine HCl 20 mg PO Q6HP PRN #30 07/19/20 Lactobacillus Acidophilus [Acidophilus] 1 each PO TID #90 capsule 07/19/20 Lipase/Protease/Amylase [Heather Turpin 12,000 Units Capsule] 3 cap PO TIDWM #270 cap 07/19/20 Medihoney [Medihoney Woundcare Gel*] 1 appl TOP TuThSa@0900 #1 tube 07/19/20 Sevelamer Carbonate [Renvela*] 800 mg PO TIDWM #90 tablet 07/19/20 Codeine/APAP [Tylenol #3*] 1 tab PO Q6H PRN 3 Days #10 tab 09/23/20 Ipratropium Neb [Atrovent*] 0.5 mg NEB [id number] #60 amp 10/12/20 Isosorbide Dinitrate 30 mg PO DAILY #30 tablet 10/12/20 predniSONE [Deltasone*] 10 mg PO BID #14 tab 10/12/20 - Past Medical/Surgical History Has patient received pneumonia vaccine in the past: Yes Diabetic: Yes -: COPD -: Hypertension -: CAD, CABG x4 vessels (August 2017) -: Diabetes mellitus type 2, insulin-dependent -: Chronic combined systolic/diastolic CHF -: Uterine cancer status post hysterectomy -: Chronic renal disease, stage IV -: TB as a child - Negative 2017 -: Hyperlipidemia -: Iron deficiency anemia -: WEST -: ESRD on HD -: Rectal surgery -: Hysterectomy -: Cholecystectomy -: Gastric surgery -: Appendectomy -: CABG x4 vessel -: RLE Femoral popliteal bypass -: Left great toe amputation Psychosocial/ Personal History: The patient is a . Her son lives with her. She has 3 children. - Family History Brother -: Heart disease, Hypertension, Cancer Notes: Father -: Heart disease, Lung disease, Cancer Notes: - Prostate surgery - Hemorrhage Mother -: GI disease Notes: Sister -: Heart disease Notes: - Respiratory failure - Social History Smoking Status: Current some day smoker Alcohol use: No CD- Drugs: No Caffeine use: Yes Place of Residence: Home Review of Systems 10-point ROS is otherwise unremarkable Musculoskeletal: Leg Pain Integumentary: Rash Physical Examination - Vital Signs Temperature: 97.3 F Blood Pressure: 176/79 Pulse: 73 Respirations: 18 Pulse Ox (%): 98 - Physical Exam General: Alert, In no apparent distress HEENT: Atraumatic, PERRLA, Mucous membr. moist/pink, EOMI, Sclerae nonicteric Neck: Supple, 2+ carotid pulse no bruit, No LAD, Without JVD or thyroid abnormal ity Respiratory: Diminished, Crackles/rales, Expiratory wheezes Cardiovascular: Regular rate/rhythm, Normal S1 S2, Edema Gastrointestinal: Normal bowel sounds, No tenderness Musculoskeletal: No tenderness Integumentary: No rashes, Skin breakdown, Tenderness/swelling, Erythema, Warmth Neurological: Normal speech, Normal strength at 5/5 x4 extr, Normal tone, Normal affect Lymphatics: No axilla or inguinal lymphadenopathy Urinary: Dialysis catheter - Studies Laboratory Data (last 24 hrs) 11/06/20 23:03: Sodium 135 L, Potassium 4.7, BUN 39 H, Creatinine 2.81 H, Glucose 122 H, Total Bilirubin 0.3, AST 21, ALT 23, Alkaline Phosphatase 127 H 11/06/20 23:03: WBC 6.90, Hgb 11.3 L, Hct 34.6 L, Plt Count 200 Assessment and Plan - Problems (Diagnosis) (1) CHF (congestive heart failure) Onset Date: 04/28/15 Current Visit: No Status: Chronic Qualifiers: Heart failure type: diastolic Heart failure chronicity: acute on chronic Qualified Code(s): I50.33 - Acute on chronic diastolic (congestive) heart failure (2) Volume overload Onset Date: ~04/26/20 Current Visit: No Status: Acute Qualifiers: Hypervolemia type: other Qualified Code(s): E87.79 - Other fluid overload (3) CAD (coronary artery disease) Onset Date: 10/03/17 Current Visit: No Status: Chronic Qualifiers: Coronary Disease-Associated Artery/Lesion type: unspecified vessel or lesion type [place] vs. transplanted heart: [place] heart Associated angina: without angina Qualified Code(s): I25.10 - Atherosclerotic heart disease of [place] coronary artery without angina pectoris (4) Diabetes mellitus Onset Date: 10/03/17 Current Visit: No Status: Chronic Qualifiers: Diabetes mellitus type: type 2 Diabetes mellitus complication status: with kidney complications Diabetes mellitus complication detail: with chronic kidney disease Chronic kidney disease stage: on chronic dialysis (5) ESRD (end stage renal disease) on dialysis Onset Date: ~04/26/20 Current Visit: No Status: Chronic (6) Hyperlipidemia Onset Date: 10/03/17 Current Visit: No Status: Chronic Qualifiers: Hyperlipidemia type: mixed hyperlipidemia Qualified Code(s): E78.2 - Mixed hyperlipidemia (7) Hypertension Current Visit: No Status: Chronic Qualifiers: Hypertension type: primary hypertension Qualified Code(s): I10 - Essential (primary) hypertension (8) Cellulitis Onset Date: 09/09/16 Current Visit: No Status: Acute Qualifiers: Site of cellulitis: extremity Site of cellulitis of extremity: lower extremity Laterality: right Qualified Code(s): L03.115 - Cellulitis of right lower limb - Plan surgery consulted, wound care consulted, nephrology consulted pain management as needed DVT ultrasound pending, DVT prophylaxis CXR pending IV Lasix BID, daily weights, fluid restrict, low sodium diet continue dialysis continue home medications sliding scale insulin and accuchecks Discharge Plan: Home Plan to discharge in: 48 Hours - Advance Directives Does patient have a Living Will: No Does patient have a Durable POA for Healthcare: Yes - Code Status/Comfort Care Code Status Assessed: Yes (full code) Critical Care: No Time Spent Managing Pts Care (In Minutes): 70
[2020-11-07] MEDS: HYDROCODONE/APAP 7.5/325 MG TAB PO PRN ×4 (00:26→15:58)
[2020-11-07] MEDS: HEPARIN 5000 UNIT/ML 1 ML VIAL SQ SCH ×3 (00:27→17:00)
[2020-11-07 06:37] LABS: Absolute Lymphocytes (CBC) 1.5 K/uL (0.7-4.9); Basophils % 1.4 % (0-1.3); Hematocrit 34.1 % (36.0-45.0); Lymphocytes % 25.8 % (15.3-44.8); MPV 6.6 fL (7.6-11.3); RBC Red Blood Cell Count 3.83 M/uL (3.86-4.86)
[2020-11-07 06:57] LABS: Albumin 2.8 g/dL (3.4-5.0); Bilirubin Total 0.5 mg/dL (0.2-1.0); Phosphorus 2.8 mg/dL (2.5-4.9); Potassium 4.6 mmol/L (3.5-5.1); Protein, Total 6.8 g/dL (6.4-8.2)
[2020-11-07 07:04] LABS: Thyroid Stimulating Hormone 4.79 uIU/mL (0.360-3.740)
[2020-11-07] MEDS: INSULIN -REGULAR HUMAN 50 UNIT/0.5 ML ML SQ SCH ×4 (07:30→21:00)
[2020-11-07] MEDS ORDERED: FUROSEMIDE 20 MG/ 2ML VIAL IV SCH (09:00)
[2020-11-07] MEDS ORDERED: HEPARIN 5000 UNIT/ML 1 ML VIAL SQ SCH (09:00)
--- NOTE | 2020-11-07 09:41 | RAD REPORT ---
EXAM DESCRIPTION: US - Extrem Venous W Compress René - 11/07/2020 9:34 am CLINICAL HISTORY: leg swelling, bilateral COMPARISON: None. TECHNIQUE: Real-time sonographic evaluation of the bilateral lower extremity common femoral, superfi cial femoral, popliteal and posterior tibial veins was performed. FINDINGS: Normal compressibility, flow augmentation, phasic flow and spontaneous flow are identified in the left and right lower extremity common femoral, superficial femoral, popliteal and posterior t ibial veins. No intraluminal filling defects seen. IMPRESSION: No DVT in either lower extremity.
--- NOTE | 2020-11-07 11:45 | RAD REPORT ---
EXAM DESCRIPTION: RAD - Chest Single View - 11/07/2020 1:03 am CLINICAL HISTORY: The patient is 65 years old and is Female; crackles TECHNIQUE: Frontal view of the chest. COMPARISON: March 09, 2020 chest radiograph. FINDINGS: LUNGS: Opacification of the right lower lobe is present. Left lung is otherwise relative ly clear of consolidation. PLEURAL SPACE: Worsening right pleural effusion is noted. Hazy opacity throughout the left lung i s present. No pneumothorax. HEART: The cardiac silhouette is enlarged. MEDIASTINUM: Unremarkable. BONES/JOINTS: Median sternotomy wires are present. TUBES, LINES AND DEVICES: Left IJ Vas-Cath is present with the tip at the SVC/RA junction. IMPRESSION: 1. Right pleural effusion with likely development of a left pleural effusion. 2. Atelectasis/infiltrate within the right lower lobe. Electronically signed by: Chelsea Puri MD 11/07/2020 1:23 AM CDT Due to temporary technical issues with the PACS/Fluency reporting system, reports are being signed by the in house radiologists without review as a courtesy to insure prompt reporting. The interpreting radiologist is fully responsible for the content of the report.
[2020-11-07] MEDS: DIPHENHYDRAMINE 25 MG TAB/CAP PO PRN (15:58)
--- NOTE | 2020-11-07 16:19 | CON ---
Date of Consultation: 11/07/2020 Reason For Consultation: Elevated BUN and creatinine, fluid management, end- stage renal disease. History Of Present Illness: This is a pleasant 65-year-old female, well known to me from the office, on dialysis with significant past medical history of end- stage renal disease, on hemodialysis TTS at [facility], coronary artery disease status post CABG, COPD, diabetes complicated with neuropathy and retinopathy and nephropathy, hypertension. The patient [facility] because of uncontrolled edema and wound infection. The patient had workup for DVT, which came negative. The patient is on room air. She has significant peripheral edema. Past Medical History: Includes; 1. Coronary artery disease status post CABG. 2. End-stage renal disease, on hemodialysis TTS. 3. Diabetes complicated with neuropathy, nephropathy. 4. Hypertension. 5. COPD. Past Surgical History: Includes; 1. CABG. 2. Cholecystectomy. 3. PermCath placement. 4. Rectal surgery. Allergies: TO MORPHINE, VANCOMYCIN, TRAMADOL, TRAZODONE, AND NITROGLYCERIN. Family History: Positive for hypertension and diabetes. Social History: Denied smoking, denied drinking, denied drugs abuse. Home Medications: Include; 1. Allopurinol. 2. Aspirin. 3. Atorvastatin. 4. Hydralazine 25 t.i.d. 5. Carvedilol 6.25. 6. Lisinopril 5. 7. Cholestyramine. 8. Lasix b.i.d. 9. Gabapentin. 10. Renvela. 11. Isosorbide. 12. Prednisone. Review of Systems: Head and Neck: No red eye. No ear pain. GI: No nausea. No vomiting. : No polyuria. No dysuria. No hematuria. The patient is oliguric. Medical Care Evaluation Specialist: No vaginal discharge. Respiratory: Has shortness of breath. Cardiovascular: Has leg swelling. Endocrine: No polydipsia. Skin: No rash. Neuro: Has neuropathy. Musculoskeletal: Generalized weakness. Physical Examination: Vital Signs: When I saw the patient; blood pressure of 168/72, pulse of 68, afebrile. Chest: Clear to auscultation. Heart: S1, S2. Systolic murmur. Abdomen: Soft, nontender. Extremities: +2 edema. Neuro: Alert, oriented x3. Has a tremor. Musculoskeletal: No focality. Laboratory Data: WBC 5.8, H and H 11.2/34. Sodium 131, potassium 4.6, bicarb 25, BUN 40, creatinine 2.9, calcium 8.1, magnesium of 2, albumin 2.8. BNP 7200. DVT study negative of both lower extremities. Chest x-ray, cardiomegaly with right-sided pleural effusion. Assessment And Plan: 1. End-stage renal disease, over volume. We will arrange for the patient for dialysis today. We will challenge the patient. We will do another session of sequential tomorrow also to try to establish better volume control for the patient and we will monitor. 2. Hypertension. We will try to utilize blood pressure for more ultrafiltration. We will taper down the hydralazine. Increase Lasix to 80 mg and we will titrate up the lisinopril. I am going to monitor the patient closely. 3. Wound infection. Follow up with Wound Care. 4. Anasarca secondary to cardiorenal. As I mentioned, we will keep challenging the patient. 5. Anemia of chronic kidney disease. No need for BRONWYN. 6- pleural effusion will send for decubtus xray time spend exam the patient face to face placing order , reviewing data , discussed the case with nursing staff, other team care including mohinder 65 min GAMA Voice ID: [id number] Report ID: [id number] MTDD
[2020-11-07] MEDS: FUROSEMIDE 40 MG/4 ML VIAL IV SCH (21:10)
[2020-11-08] MEDS: HYDRALAZINE HCL 20 MG/ML VIAL IV PRN (00:43)
[2020-11-08] MEDS: HEPARIN 5000 UNIT/ML 1 ML VIAL SQ SCH ×3 (00:43→17:35)
[2020-11-08] MEDS: HYDROCODONE/APAP 7.5/325 MG TAB PO PRN ×2 (05:15→11:36)
[2020-11-08 06:39] LABS: Albumin 2.6 g/dL (3.4-5.0); Phosphorus 2.6 mg/dL (2.5-4.9); Potassium 4.2 mmol/L (3.5-5.1)
[2020-11-08] MEDS: INSULIN -REGULAR HUMAN 50 UNIT/0.5 ML ML SQ SCH ×4 (07:30→20:54)
[2020-11-08] MEDS: FUROSEMIDE 40 MG/4 ML VIAL IV SCH ×2 (09:00→17:35)
--- NOTE | 2020-11-08 11:28 | RAD REPORT ---
EXAM DESCRIPTION: RAD - Chest Lateral Decubitus - 11/08/2020 11:09 am CLINICAL HISTORY: pleural effusion COMPARISON: Chest Single View dated 11/07/2020 FINDINGS: Right lateral decubitus radiograph demonstrated a free-flowing small to moderate right ple ural effusion. Sternotomy changes. The dialysis catheter noted. Cardiomegaly. IMPRESSION: Free-flowing small to moderate right pleural effusion.
[2020-11-08] MEDS: DIPHENHYDRAMINE 25 MG TAB/CAP PO PRN (11:36)
--- NOTE | 2020-11-08 15:12 | P.PN ---
Subjective Date of Service: 11/07/20 Patient is clinically doing well with no new complaints. Continue on antibiotic therapy after hemodialysis. Spoke with Nephrology and they will try to get this set up as an outpatient. Review of Systems 10-point ROS is otherwise unremarkable Physical Examination - Vital Signs Temperature: 97.3 F Blood Pressure: 151/66 Pulse: 70 Respirations: 16 Pulse Ox (%): 97 - Physical Exam General: Alert, In no apparent distress, Oriented x3 Respiratory: Clear to auscultation bilaterally, Normal air movement Cardiovascular: Regular rate/rhythm, Normal S1 S2, No murmurs Gastrointestinal: Normal bowel sounds, Soft and benign, Non-distended, No tenderness Musculoskeletal: Swelling, Erythema, Tenderness - Studies Laboratory Data (last 24 hrs) 11/08/20 06:11: Sodium 135 L, Potassium 4.2, BUN 29 H, Creatinine 2.45 H, Glucose 101, Phosphorus 2.6 Medications List Reviewed: Yes Assessment & Plan - Problems (Diagnosis) (1) Cellulitis Current Visit: Yes Status: Acute (2) ESRD (end stage renal disease) Current Visit: Yes Status: Acute (3) Pleural effusion Current Visit: Yes Status: Acute (4) CAD (coronary artery disease) Onset Date: 10/03/17 Current Visit: No Status: Chronic Qualifiers: Coronary Disease-Associated Artery/Lesion type: unspecified vessel or lesion type [place] vs. transplanted heart: [place] heart Associated angina: without angina Qualified Code(s): I25.10 - Atherosclerotic heart disease of [place] coronary artery without angina pectoris (5) Diabetes mellitus Onset Date: 10/03/17 Current Visit: No Status: Chronic Qualifiers: Diabetes mellitus type: type 2 Diabetes mellitus complication status: with kidney complications Diabetes mellitus complication detail: with chronic kidney disease Chronic kidney disease stage: on chronic dialysis (6) ESRD (end stage renal disease) on dialysis Onset Date: ~04/26/20 Current Visit: No Status: Chronic (7) History of coronary artery bypass graft Current Visit: No Status: Chronic (8) History of femoropopliteal bypass Current Visit: No Status: Chronic (9) Ulcer of toe of left foot Onset Date: 01/07/14 Current Visit: No Status: Resolved - Plan 1. Continue with IV antibiotic 2. Continue with local wound care 3. Wound care consultation/surgical consultation appreciated 4. ESRD so hemodialysis per Nephrology 5. Monitor CBC 6. Strict blood sugar monitoring 7. Pain control 8. May need to arrange for outpatient antibiotics with Nephrology 9. Nephrology wants to do lateral decubitus chest x-ray 10. GI and DVT prophylaxis Discharge Plan: Home Plan to discharge in: Greater than 2 days - Advance Directives Does patient have a Living Will: No Does patient have a Durable POA for Healthcare: Yes - Code Status/Comfort Care Code Status Assessed: Yes Code Status: Full Code Critical Care: No Time Spent Managing PTS Care (In Minutes): 35
--- NOTE | 2020-11-08 15:12 | PN ---
Subjective: The patient was admitted with wound infection, leg edema. The patient had dialysis yest erday, managed to remove 4 L on dialysis. The patient is feeling well. Still has some shortness of breath. Physical Examination: Vital Signs: Blood pressure 152/66, pulse of 67, afebrile. Chest: Decreased air entry on the right base. Heart: S1, S2. Systolic murmur. Abdomen: Soft, nontender. Extremities: +2 edema. Compression dressing on both legs. Neuro: Alert and oriented x3. Laboratory Data: H and H 11.2/34.1. Sodium 135, potassium 4.2, bicarb 28, BUN 29, creatinine 2.4, c alcium 8.2, phosphorus 2.6, albumin 2.6, corrected calcium is 9.2. Current Medications: The patient on include; 1.Heparin. 2.Hydralazine. 3.Lasix 80 b.i.d. 4.Hydrocodone. 5.Insulin. Assessment And Plan: 1.End-stage renal disease, over volume. We will arrange for another session of dialysis today with sequential. 2.Hypertension, controlled, optimal. Continue diuresing to utilize the blood pressure for more ultr afiltration to establish better volume control. 3.Hypokalemia, resolved. 4.Hyponatremia, resolved. Corrected with dialysis. 5.Pleural effusion. We will get right-sided decubitus chest x-ray and we will follow up if the patient is going to need paracentesis. 6.Wound infection. We will follow up with Surgery. GAMA Voice ID: [id number] Report ID: [id number]
[2020-11-09] MEDS: HYDRALAZINE HCL 20 MG/ML VIAL IV PRN (00:24)
[2020-11-09] MEDS: HEPARIN 5000 UNIT/ML 1 ML VIAL SQ SCH ×2 (00:25→08:57)
[2020-11-09] MEDS: HYDROCODONE/APAP 7.5/325 MG TAB PO PRN (00:25)
[2020-11-09] MEDS: DIPHENHYDRAMINE 25 MG TAB/CAP PO PRN (01:15)
[2020-11-09 06:46] LABS: Albumin 2.7 g/dL (3.4-5.0); Potassium 4.5 mmol/L (3.5-5.1)
[2020-11-09] MEDS: INSULIN -REGULAR HUMAN 50 UNIT/0.5 ML ML SQ SCH (07:30)
[2020-11-09 08:45] VITALS: BP 166/75; TEMP 97.3
[2020-11-09] MEDS: FUROSEMIDE 40 MG/4 ML VIAL IV SCH (08:56)
[2020-11-09 11:23] VITALS: O2SAT 100
[2020-11-12 19:00] LABS: HBsAG Nonreactive (Nonreactive)
--- NOTE | 2020-11-13 09:52 | P.PN ---
Date of Service: 11/08/20 Subjective Patient is doing well. Patient to discharge with antibiotics after dialysis Review of Systems 10-point ROS is otherwise unremarkable Physical Examination - Vital Signs Reviewed - Physical Exam General: Alert, In no apparent distress, Oriented x3 Respiratory: Clear to auscultation bilaterally, Normal air movement Cardiovascular: Regular rate/rhythm, Normal S1 S2, No murmurs Gastrointestinal: Normal bowel sounds, Soft and benign, Non-distended, No tenderness Musculoskeletal: Swelling, Erythema, Tenderness Assessment & Plan - Problems (Diagnosis) (1) Cellulitis Current Visit: Yes Status: Acute (2) ESRD (end stage renal disease) Current Visit: Yes Status: Acute (3) Pleural effusion Current Visit: Yes Status: Acute (4) CAD (coronary artery disease) Onset Date: 10/03/17 Current Visit: No Status: Chronic Qualifiers: Coronary Disease-Associated Artery/Lesion type: unspecified vessel or lesion type [place] vs. transplanted heart: [place] heart Associated angina: without angina Qualified Code(s): I25.10 - Atherosclerotic heart disease of [place] coronary artery without angina pectoris (5) Diabetes mellitus Onset Date: 10/03/17 Current Visit: No Status: Chronic Qualifiers: Diabetes mellitus type: type 2 Diabetes mellitus complication status: with kidney complications Diabetes mellitus complication detail: with chronic kidney disease Chronic kidney disease stage: on chronic dialysis (6) ESRD (end stage renal disease) on dialysis Onset Date: ~04/26/20 Current Visit: No Status: Chronic (7) History of coronary artery bypass graft Current Visit: No Status: Chronic (8) History of femoropopliteal bypass Current Visit: No Status: Chronic (9) Ulcer of toe of left foot Onset Date: 01/07/14 Current Visit: No Status: Resolved - Plan 1. Continue with IV antibiotic 2. Continue with local wound care 3. Wound care consultation/surgical consultation appreciated 4. ESRD so hemodialysis per Nephrology 5. Monitor CBC 6. Strict blood sugar monitoring 7. Pain control 8. May need to arrange for outpatient antibiotics with Nephrology 9. Nephrology wants to do lateral decubitus chest x-ray 10. GI and DVT prophylaxis
--- NOTE | 2020-11-13 09:54 | P.DS ---
Discharge Date: 11/09/20 Disposition: DC HOME/HOME HEALTH CARE Discharge Condition: GOOD Reason for Admission: cellulitis - Problems (1) Cellulitis Status: Acute (2) ESRD (end stage renal disease) Status: Acute (3) Pleural effusion Status: Acute (4) CAD (coronary artery disease) Onset Date: 10/03/17 Status: Chronic Qualifiers: Coronary Disease-Associated Artery/Lesion type: unspecified vessel or lesion type [place] vs. transplanted heart: [place] heart Associated angina: without angina Qualified Code(s): I25.10 - Atherosclerotic heart disease of [place] coronary artery without angina pectoris (5) Diabetes mellitus Onset Date: 10/03/17 Status: Chronic Qualifiers: Diabetes mellitus type: type 2 Diabetes mellitus complication status: with kidney complications Diabetes mellitus complication detail: with chronic kidney disease Chronic kidney disease stage: on chronic dialysis (6) ESRD (end stage renal disease) on dialysis Onset Date: ~04/26/20 Status: Chronic (7) History of coronary artery bypass graft Status: Chronic (8) History of femoropopliteal bypass Status: Chronic (9) Ulcer of toe of left foot Onset Date: 01/07/14 Status: Resolved Brief History of Present Illness: Ms. Priest is a 65 yo F with multiple medical problems including ESRD on HD and T2DM who presents with cellulitis as a direct admit [facility]. for symptoms of volume overload. She says increased pain, swelling, and soreness began two days ago in her right foot. She has erythema on dorsum of foot and lower leg, and a large blister on her right toe. She denies SOB, ESPITIA, fever, nausea and vomiting. She says she has not missed a dialysis appointment. Hospital Course: Patient was started on IV antibiotic therapy. Patient was clinically doing much better. Patient was settled with outpatient dialysis by nephrology. At this time, patient is stable for discharge home. Vital Signs/Physical Exam: Temp Pulse Resp BP Pulse Ox 97.3 F 71 17 166/75 H 100 11/09/20 08:00 11/09/20 08:56 11/09/20 08:00 11/09/20 08:56 11/09/20 08:00 General: Alert, In no apparent distress, Oriented x3 Laboratory Data at Discharge: WBC 5.80 K/uL (4.3-10.9) D 11/07/20 06:12 Hgb 11.2 g/dL (12.0-15.0) L 11/07/20 06:12 Hct 34.1 % (36.0-45.0) L 11/07/20 06:12 Plt Count 202 K/uL (152-406) 11/07/20 06:12 Sodium 132 mmol/L (136-145) L 11/09/20 06:16 Potassium 4.5 mmol/L (3.5-5.1) 11/09/20 06:16 BUN 34 mg/dL (7-18) H 11/09/20 06:16 Creatinine 2.79 mg/dL (0.55-1.3) H 11/09/20 06:16 Glucose 102 mg/dL (74-106) 11/09/20 06:16 Phosphorus 3.0 mg/dL (2.5-4.9) 11/09/20 06:16 Magnesium 2.0 mg/dL (1.8-2.4) 11/07/20 06:12 Total Bilirubin 0.5 mg/dL (0.2-1.0) 11/07/20 06:12 AST 18 U/L (15-37) 11/07/20 06:12 ALT 21 U/L (12-78) 11/07/20 06:12 Alkaline Phosphatase 133 U/L (45-117) H 11/07/20 06:12 Triglycerides 81 mg/dL (<150) 11/07/20 06:12 Cholesterol 133 mg/dL (<200) 11/07/20 06:12 HDL Cholesterol 77 mg/dL (40-60) H 11/07/20 06:12 Cholesterol/HDL Ratio 1.73 11/07/20 06:12 Home Medications: Allopurinol 100 mg PO BID 06/13/20 Aspirin 81 mg PO DAILY 06/13/20 Atorvastatin Calcium [Lipitor] 40 mg PO BEDTIME 06/13/20 Clopidogrel Bisulfate [Plavix*] 75 mg PO DAILY 06/13/20 Fluticasone [Flovent Hfa 110*] 2 puff IN DAILY 06/13/20 Hydralazine [Apresoline*] 25 mg PO TID 06/13/20 carvediloL [Carvedilol] 6.25 mg PO BID 06/13/20 Cholestyramine (with Sugar) [Cholestyramine Packet] 1 packet PO DAILY PRN 06/14/20 Furosemide [Lasix*] 1 tab PO BID 06/14/20 Gabapentin [Neurontin*] 200 mg PO TID 06/14/20 Sertraline HCl 25 mg PO DAILY 06/14/20 Dicyclomine HCl 20 mg PO Q6HP PRN #30 07/19/20 Lactobacillus Acidophilus [Acidophilus] 1 each PO TID #90 capsule 07/19/20 Lipase/Protease/Amylase [Heather Turpin 12,000 Units Capsule] 3 cap PO TIDWM #270 cap 07/19/20 Medihoney [Medihoney Woundcare Gel*] 1 appl TOP TuThSa@0900 #1 tube 07/19/20 Sevelamer Carbonate [Renvela*] 800 mg PO TIDWM #90 tablet 07/19/20 Codeine/APAP [Tylenol #3*] 1 tab PO Q6H PRN 3 Days #10 tab 09/23/20 Ipratropium Neb [Atrovent*] 0.5 mg NEB [id number] #60 amp 10/12/20 Isosorbide Dinitrate 30 mg PO DAILY #30 tablet 10/12/20 Physician Discharge Instructions: -OK TO DC IV AND DC HOME -FOLLOW-UP WITH PCP IN 1-2 WEEKS -FOLLOW-UP WITH NEPHROLOGY for HD -PLEASE MAKE SURE ALL DIAGNOSTIC STUDIES ARE AVAILABLE AND HAVE BEEN REVIEWED WITH PATIENT PRIOR TO DISCHARGE -RETURN TO THE ER IF Symptoms worsen -CALL DR. COOPER AT [phone] IF ANY QUESTIONS REGARDING HOSPITAL STAY -PLEASE CALL THE FLOOR AT [phone] IF ANY MEDICATION OR NURSING QUESTIONS Diet: Renal Activity: Fall precautions Followup: Sharri Fernando MD [ACTIVE - CAN ADMIT] - Time spent managing pt's care (in minutes): 55
== END 2020-11-09 10:59 | disposition home health service (06) | DRG 602 ==
LOC: 2ND 17:56
PROVIDERS: ADMIT Hospitalist; ATTEND Hospitalist
PROC: 5A1D70Z Performance of Urinary Filtration, Intermittent, Less than 6 Hours Per Day (ICD-10-PCS; principal; 2020-11-07)
PROC: 5A1D70Z Performance of Urinary Filtration, Intermittent, Less than 6 Hours Per Day (ICD-10-PCS; 2020-11-08)
DX: L03.115 Cellulitis of right lower limb (principal); N18.6 End stage renal disease; I12.0 Hypertensive chronic kidney disease with stage 5 chronic kidney disease or end stage renal disease; E87.1 Hypo-osmolality and hyponatremia; J90 Pleural effusion, not elsewhere classified; I25.10 Atherosclerotic heart disease of native coronary artery without angina pectoris; E11.22 Type 2 diabetes mellitus with diabetic chronic kidney disease; E87.6 Hypokalemia; S90.424A Blister (nonthermal), right lesser toe(s), initial encounter; E11.40 Type 2 diabetes mellitus with diabetic neuropathy, unspecified; E11.21 Type 2 diabetes mellitus with diabetic nephropathy; Z95.1 Presence of aortocoronary bypass graft; Z99.2 Dependence on renal dialysis
CPT/HCPCS: 36415; 71045; 71046; 80053; 80061; 80069; 82947; 83735; 83880; 84100; 84439; 84443; 85025; 86317; 87040; 87340; 90935; 93970; 94760; 99215; J0360; J1644; J1940; U0003

== ENCOUNTER 2020-12-05 09:52 | Inpatient (IN) | payer OTHER ==
--- OUTSIDE RECORDS SUMMARY | 2020-12-05 10:10 | XMS REPORT | Continuity of Care Document ---
:1955 Author Organization [facility] t Address [address] [place] [address] Care Team Providers Name Role Phone Landy Rendon Primary Care Physician Babatunde PIERRE Attending Clinician Mk PIERRE Attending Clinician Lisa Mohamud MD Attending Clinician Kj PIERRE, Merrem Attending Clinician Urmila PIERRE, Adedotun Attending Clinician Neeta PIERRE, Thy Attending Clinician [...] Date Expiration Date Sour ce Cassie ALMANZA [id number] [facility] MEDICAIDMEDICAID 00:00:[id number] - Ghulamromero nicolle [id number] Ce nter 2-Present Problems Condition Condition Condition [...] dical disease) disease) 00 Center with with claudshaunnati claudicati on on Acute on Acute on [...] rosis of 2-[address] [facility] ambler ambler 00:00: Medical artery of artery of 00 Cent er extremity extremity with with ulceration ulceration Acute CHF Acute CHF Disease Active [facility]14 [facility] - 00[facility]: Medical 00 Center COPD COPD Disease Active [facility] (chronic (chronic 2-14 [facility] - obstructiv obstructiv 00:00: Ar dical e e 00 Center pulmonary pulmonary disease) disease) Controlled Controlled Disease Active [facility] type 2 type 2 2-14 [facility] - diabetes diabetes 00:00: Medica l mellitus mellitus 00 Center 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, 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, with with long-term [...] COPD d COPD 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 [facility] 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 current [facility] [...] Vomiting 2-12 [facility] - 00:00: Medical 00 [place] Basil Propensi Active Nausea Only [facility] [...] Analogue adverse 00:00: Medical s reaction 00 [place] s Amoxicil Propensi Active Diarrhea [facility] kenzie-Pot ty to 04-21 [facility] - Clavulan adverse 00:00: Medical ate reaction 00 Center s Vancomyc Adverse Active vomiting [facility] Nitrogly Adverse Active vomiting [facility] cerin Reaction [facility] Morphine Adverse Active headache, [facility] Sulfate Reaction [facility] Clind[facility] Adverse Active vomiting [facility] riley HCl Reaction [facility] Family History Family Member Diagnosis Comments Start Date Stop Date Source Natural father COPD [facility] Natural father Cancer [facility] Natural father Hypertension [facility] Natural mother No Known Problem [facility] Natural sister Asthma [facility] Natural sister COPD [facility] Social History Social Habit Start Date Stop Date Quantity Comments Source Sex Assigned At [facility] Cigarettes smoked 2019-12-31 2019-12-31 [facility] Ortega - current (pack per 00:00:00 00:00:00 [facility] day) - Reported Cigarette 2019-12-31 2019-12-31 [facility] 00:[facility]:00 00:00:00 [facility] Tobacco use and 2019-12-31 2019-12-31 Never used [facility] - exposure 00:00:00 00:00:00 [facility] Alcohol intake 2019-12-31 2019-12-31 [facility] 00:00:00 non-drinker of Medical Ce nter alcohol (finding) History of tobacco 2017-05-12 Smoker [facility] kes - use 00:00:00 [facility] Smoking Status Start Date Stop Date Source Former smoker 2019-12-31 00:00:00 2019-12-31 00:00:00 [facility] Medications Ordered Filled Start Stop Current Ordering Indication Dosage Frequency Signature Comments Components Source Medication Medication Date Date Medication? Clinician (SIG) Name Name mupirocin 2019-03 Yes QD Apply [facility] (BACTROBAN) 0-03 topically Lay es - 2 % 10:49: daily. Medical ointment [address] [place] [address] collagenase 2019-03 Yes QD Apply [facility] (SANTYL) 0-03 topically [facility] - 250 units/g 10:49: daily. Medi marilin ointment [address] [place] [address] bumetanide 2019-03 Yes 2mg [id number] Take [address] [address] (BUMEX) 2 0-03 [id number] by mouth 3 [facility] - MG tablet [...] l tablet 00 daily with Center breakfast. mupirocin 2019-03 Yes QD Apply [facility] (BACTROBAN) 0-03 topically Lay es - 2 % 10:49: daily. Medical ointment 00 Center collagenase 2019-03 Yes QD Apply [facility] (SANTYL) 0-03 topically [facility] - 250 units/g 10:49: daily. Medi marilin ointment 00 [place] bumetanide 2019-03 Yes 2mg [id number] Take [address] (BUMEX) 2 0-03 [id number] by mouth 3 [facility] - MG tablet [...] QD Take [address] n 0 10-12 tablet [facility] - (LEVAQUIN) 00:00: 23:59 (250 mg Med ical 250 MG 00 :00 total) by Center tablet mouth daily for 10 days. levoFLOXaci 2019-03 2020- No 250mg QD Take [address] n 012 tablet [facility] - (LEVAQUIN) 00:00: 23:59 (250 mg Med ical 250 MG 00 :00 total) by Center tablet mouth daily for 10 days. fentaNYL 2020-0 Yes 1{patch Place [address] [facility] (DURAGESIC) 12-17 } patch onto Janna kes - 50 mcg/hr 00:00: the skin Medi marilin patch 00 every Center third day. fentaNYL 2020-0 Yes 1{patch Place [address] [facility] (DURAGESIC) 12-17 } patch onto Janna kes - 50 mcg/hr 00:00: the skin Medi marilin patch 00 every Center third day. melatonin 2020-0 2020- No 10mg Take [address] 10 mg Tab 12-15 by mouth [facility] - 11:04: 00:00 every Medical 38 :00 night as Center needed. melatonin 2020-0 2020- No 10mg Take [address] 10 mg Tab 12-15 by mouth [facility] - 11:04: 00:00 every Medical 38 :00 night as Center needed. NICOTINE 2020-0 2020- No Place onto [facility] (NICODERM 12-15 the skin. Luke s - CQ TD) 11:03: 00:00 Medical 48 :00 Center NICOTINE 2020-0 2020- No Place onto [facility] (NICODERM 12-15 the skin. Luke s - CQ TD) 11:03: 00:00 Medical 48 :00 [place] aspirin 81 2019-0 2020- No 81mg QD Take [address] MG EC 12-15 by mouth [facility]ukes - tablet 11:03: 00:00 daily. Medical 18 :00 [place] aspirin 81 2019-0 2020- No 81mg QD Take [address] MG EC 12-15 by mouth [facility]ukes - tablet 11:03: 00:00 daily. Medical 18 :00 Center isosorbide 2019- No 30mg QD Take [address] mononitrate 12-15 by mouth Lay es - (IMDUR) 30 10:59: 00:00 daily. Medi marilin MG 24 hr 29 :00 Center tablet isosorbide 2019- No 30mg QD Take 30 [...] as needed. Max Daily Amount: 4 tablets acetaminoph Yes 1{tbl} Take 1 CH I [...] afternoon Center and 300 mg at night. gabapentin Yes Take [address] (NEURONTIN) 6-05 mg in AM Luke s - 100 MG 00:00: and Medical capsule 00 afternoon Center and 300 mg at night. ferrous 2019- No 325mg Q.5D Take [address] sulfate 325 08-09 tablet [facility]ukes - (65 FE) MG 00:00: 00:00 (325 mg Med ical tablet 00 :00 total) by Center mouth 2 (two) times daily. ferrous 2019- No 325mg Q.5D Take 1 [...] Center mouth 2 (two) times daily. atorvastati 2018-0 Yes 40mg QD Take [address] [facility] n (LIPITOR) 4-09 tablet (40 Janna kes - 40 MG 00:00: mg total) Medical tablet 00 by mouth Center daily. carvedilol 2018-0 Yes 12.5mg Q.5D Take [address] (COREG) 4-09 tablet Lukes - 12.5 MG 00:00: (12.5 mg Medica l tablet 00 total) by Center mouth 2 (two) times daily. atorvastati 2018-0 Yes 40mg QD Take [address] [facility] n (LIPITOR) 4-09 tablet (40 Janna kes - 40 MG 00:00: mg total) Medical tablet 00 by mouth Center daily. NIFEdipine 2017- 2020- No 60mg QD Take [address] [facility] [facility] (ADALAT CC) 07-07 tablet (60 L ukes - 60 MG 24 hr 00:00: 00:00 mg total) Medical tablet 00 :00 by mouth Center daily Blood pressure. hydrALAZINE 2017- 2020- No 50mg Take [address] [facility] (APRESOLINE 07-07 tablet (50 L ukes - ) 50 MG 00:00: 00:00 mg total) Medi marilin tablet 00 :00 by mouth Center every 8 (eight) hours Blood pressure. clopidogrel 2020- No 75mg QD Take [address] [facility] (PLAVIX) 75 07-07 tablet (75 L ukes - mg tablet 00:00: 00:00 mg total) Me dical 00 :00 by mouth Center daily. NIFEdipine 0 2020- No 60mg QD Take [address] [facility] (ADALAT CC) 07-07 tablet (60 L ukes - 60 MG 24 hr 00:00: 00:00 mg total) Medical tablet 00 :00 by mouth Center daily Blood pressure. hydrALAZINE 2017-0 2020- No 50mg Take [address] [facility] (APRESOLINE 07-07-17 tablet (50 L ukes - ) 50 MG 00:00: 00:00 mg total) Medi marilin tablet 00 :00 by mouth Center every 8 (eight) hours Blood pressure. clopidogrel 2017-0 2020- No 75mg QD Take [address] (PLAVIX) 75 07-07 tablet (75 L ukes - mg tablet 00:00: 00:00 mg total) Me dical 00 :00 by mouth Center daily. fluticasone 2017- Yes 1{puff} Q.5D Inhale [address] (FLOVENT 3-04 puff by [facility]ukes - HFA) 110 00:00: mouth via Medi marilin mcg/actuati [address] on inhaler (two) times daily. fluticasone 2017- Yes 1{puff} Q.5D Inhale [address] (FLOVENT 3-04 puff by [facility]ukes - HFA) 110 00:00: mouth via Medi marilin mcg/actuati [address] on inhaler (two) times daily. albuterol-i 2020- No 2{puff} Inhale [address] pratropium 3-12-15 puffs by Luke s - (COMBIVENT 00:00: [...] :00 long and Center short acting insulin.. albuterol-i 2020- No 2{puff} Inhale [address] pratropium 3-12-15 puffs by Luke s - (COMBIVENT 00:00: 00:00 mouth via M edical RESPIMAT) 00 :00 inhaler Center 20-100 every 6 mcg/actuati (six) on Mist hours. inhaler insulin 2017-2019- No 5U QD Inject [facility] detemir [...] ER ER MOUTH Memoria EVERY DAY l [facility] Clinics NIFEdipine NIFEdipine Yes Franki [...] Source Heart rate 2020-01-01 08:41:00 60 /min [facility] Respiratory rate 2020-01-01 08:41:00 18 /min [facility] Oxygen saturation in 2020-01-01 08:41:00 100 /min [facility] - Arterial blood by Medical Ce nter Pulse oximetry Systolic blood 2020-01-01 08:32:00 162 mm[Hg] [facility] Diastolic blood 2020-01-01 08:32:00 73 mm[Hg] [facility] S t [facility] Body temperature 2020-01-01 07:41:00 36.56 Deanne [facility] Body weight 2019-12-30 04:28:00 78.2 kg [facility] BMI 2019-12-30 04:28:00 27.00 kg/m2 [facility] Body height 2019-12-25 21:05:00 170.2 cm [facility] Procedures Procedure Date / Time Performed Performing Clinician [facility] e REPORT OF PROCEDURE - 2020-01-05 08:40:02 Provider, Default [facility] - ENDOSCOPY SCAN Scanning [facility] RHYTHM STRIP - SCAN 2020-01-05 08:31:43 Provider, [facility] RHYTHM STRIP - SCAN 2020-01-05 08:31:42 Provider, [facility] RHYTHM STRIP - SCAN 2020-01-05 08:31:40 Provider, [facility] CARDIAC CATH REPORT - 2020-01-05 08:31:15 Provider, [facility] CARDIAC CATH REPORT - 2020-01-05 08:31:13 Provider, [facility] POCT-GLUCOSE METER 2020-01-01 06:33:00 Pat Mohamud [facility] CBC W/PLT COUNT & AUTO 2020-01-01 05:37:00 [facility] COMPREHENSIVE METABOLIC 2020-01-01 05:37:00 [facility] POCT-GLUCOSE METER 2019-12-31 20:50:00 [facility] POCT-GLUCOSE METER 2019-12-31 18:00:00 [facility] POCT-GLUCOSE METER 2019-12-31 11:42:00 [facility] POCT-GLUCOSE METER 2019-12-31 06:29:00 [facility] CBC W/PLT COUNT & AUTO 2019-12-31 06:05:00 [place] [facility] COMPREHENSIVE METABOLIC 2019-12-31 06:05:00 [facility] MAGNESIUM 2019-12-31 06:05:00 [facility] POCT-GLUCOSE METER 2019-12-30 20:13:00 [facility] POCT-GLUCOSE METER 2019-12-30 16:26:00 Pat Mohamud [facility] SURGICALLY OBTAINED 2019-12-30 13:59:46 Pat Mohamud [facility] - CULTURE + GRAM STAIN Medical [facility] ANAEROBIC CULTURE 2019-12-30 13:59:46 Pat Mohaumd [facility] SURGICALLY OBTAINED 2019-12-30 13:54:56 [facility] GRAM STAIN Medical [facility] ter ANAEROBIC CULTURE 2019-12-30 13:54:56 [facility] TISSUE [facility]AM 2019-12-30 13:38:00 Tala Santacruz [facility] I&D,BONE FOOT 2019-12-30 13:11:00 Tala Santacruz [facility] POCT-GLUCOSE METER 2019-12-30 11:39:00 [facility] 12-LEAD 2019-12-30 10:53:36 Unknown, Hl7 Doctor [facility] POCT-GLUCOSE METER 2019-12-30 05:39:00 [facility] SARS-COV2/RT-PCR ([facility] & 2019-12-30 05:11:00 Pat Mohamud [facility] - REF LABS) [facility] CBC W/PLT COUNT & AUTO 2019-12-30 05:09:00 [place] [facility] DIFFERENTIAL [facility] COMPREHENSIVE METABOLIC 2019-12-30 05:09:00 [place] [facility] POCT-GLUCOSE METER 2019-12-29 21:09:00 Pat Mohamud [facility] POCT-GLUCOSE METER 2019-12-29 11:10:00 [facility]EM[facility]PATIENT 2019-12-29 08:12:17 Brandie Khan [facility] POCT-GLUCOSE METER 2019-12-29 06:10:00 [facility] CBC W/PLT COUNT & AUTO 2019-12-29 05:50:00 [place] [facility] DIFFERENTIAL [facility] COMPREHENSIVE METABOLIC 2019-12-29 05:50:00 [place] [facility] POCT-GLUCOSE METER 2019-12-28 20:37:00 [facility] POCT-GLUCOSE METER 2019-12-28 17:38:00 Pat Mohamud [facility] POCT-GLUCOSE METER 2019-12-28 13:12:00 Pat Mohamud [facility] POCT-GLUCOSE METER 2019-12-28 05:43:00 Pat Mohamud [facility] CBC W/PLT COUNT & AUTO 2019-12-28 04:41:00 [place] [facility] S t [facility] DIFFERENTIAL [facility] COMPREHENSIVE METABOLIC 2019-12-28 04:41:00 [facility] ABD AO & LOWER EXT 2019-12-28 02:30:00 Skaina Tamayo [facility] ANGIOS/ [facility] POCT-GLUCOSE METER 2019-12-27 20:32:00 Pat Mohamud [facility] MR LOWER EXTREMITY 2019-12-27 16:30:00 JerichoLily [facility] - WITHOUT IV CONTRAST [facility] POCT-GLUCOSE METER 2019-12-27 14:06:00 Pat Mohamud [facility] WOUND CULTURE + GRAM 2019-12-27 12:02:00 Annia Delgado [facility] POCT-GLUCOSE METER 2019-12-27 06:44:00 Pat Mohamud [facility] POCT-GLUCOSE METER 2019-12-27 05:49:00 Pat Mohamud [facility] CBC W/PLT COUNT & AUTO 2019-12-27 05:05:00 [place] [facility] DIFFERENTIAL [facility] COMPREHENSIVE METABOLIC 2019-12-27 05:05:00 [place] [facility] HEMODIALYSIS INPATIENT 2019-12-27 00:31:18 Brandie Khan [facility] POCT-GLUCOSE METER 2019-12-26 20:51:00 [facility] 2019-12-26 18:02:44 Provider, Default [facility] REPORT - SCAN Scanning [facility] POCT-GLUCOSE METER 2019-12-26 16:42:00 [facility] CTA AAA AND RUNOFF 2019-12-26 15:27:00 Sakina Tamayofarhad [facility] POCT-GLUCOSE METER 2019-12-26 11:59:00 Pat Mohamud [facility] POCT-GLUCOSE METER 2019-12-26 06:09:00 [facility] CBC W/PLT COUNT & AUTO 2019-12-26 04:36:00 [facility] DIFFERENTIAL [facility] COMPREHENSIVE [facility] 2019-12-26 04:36:00 [place] [facility] PREPARE LEUKO-REDUCED RBC 2019-12-25 23:54:00 Brandie Khan [facility] POCT-GLUCOSE METER 2019-12-25 20:51:00 [facility] TRANSFUSION SERVICE 2019-12-25 18:04:44 Provider, Rocco [facility] REPORT - SCAN [facility] POCT-GLUCOSE METER 2019-12-25 17:01:00 [facility] POCT-GLUCOSE METER 2019-12-25 11:25:00 [facility] CBC W/PLT COUNT & AUTO 2019-12-25 05:59:00 Lily Echavarria [facility] S [facility] DIFFERENTIAL [facility] 2019-12-25 05:59:00 [facility] POCT-GLUCOSE METER 2019-12-25 05:58:00 [facility] TRANSFUSE LEUKO-REDUCED 2019-12-24 19:06:17 Brandie Khan [facility] RED BLOOD CELLS [facility] POCT-GLUCOSE METER 2019-12-24 16:15:00 [facility] ABORH, MANUAL 2019-12-24 08:25:00 Jovita Griffith [facility] POCT-GLUCOSE METER 2019-12-24 06:11:00 Pat Mohamud [facility] TYPE AND SCREEN, 2019-12-24 06:08:00 BillBrandie [facility] es - AUTOMATED [facility] CBC W/PLT COUNT & AUTO 2019-12-24 05:51:00 JerichoLily [facility] S [facility] DIFFERENTIAL [facility] COMPREHENSIVE METABOLIC 2019-12-24 05:51:00 Lily Echavarria [facility] POCT-GLUCOSE METER 2019-12-23 21:23:00 Pat Mohamud [facility] POCT-GLUCOSE METER 2019-12-23 16:42:00 Pat Mohamud [facility] MR LOWER EXTREMITY JOINT 2019-12-23 15:34:00 Tala Santacruz [facility] - ONLY WITHOUT IV CONTRAST [facility] LEFT MR BRAIN WITHOUT IV 2019-12-23 15:34:00 Lily Echavarria [facility] L uk - CONTRAST [facility] POCT-GLUCOSE METER 2019-12-23 11:16:00 Pat Mohamud [facility] ARTERIAL DOPPLER LEGS 2019-12-23 09:38:00 Tala Santacruz [facility] BILATERAL [facility] AMMONIA 2019-12-23 04:05:00 Mariela Carrasco [facility] CBC W/PLT COUNT & AUTO 2019-12-23 04:00:00 Lily Echavarria [facility] DIFFERENTIAL [facility] COMPREHENSIVE METABOLIC 2019-12-23 04:00:00 Lily Echavarria [facility] SARS-COV2/RT-PCR ([facility] & 2019-12-23 03:59:00 Pat Mohamud [facility] - REF LABS) [facility] POCT-GLUCOSE METER 2019-12-22 20:34:00 Pat Mohamud [facility] POCT-GLUCOSE METER 2019-12-22 16:43:00 Pat Mohamud [facility] POCT-GLUCOSE METER 2019-12-22 11:31:00 [facility] POCT-GLUCOSE METER 2019-12-22 06:30:00 [facility] CBC W/PLT COUNT & AUTO 2019-12-22 05:14:00 [place] COMPREHENSIVE METABOLIC 2019-12-22 05:14:00 [place] [facility] POCT-GLUCOSE METER 2019-12-21 20:26:00 [facility] POCT-GLUCOSE METER 2019-12-21 17:22:00 [facility] POCT-GLUCOSE METER 2019-12-21 12:35:00 [facility] POCT-GLUCOSE METER 2019-12-21 07:20:00 [facility] POCT-GLUCOSE METER 2019-12-21 05:52:00 [facility] C-REACTIVE PROTEIN 2019-12-21 04:39:00 Annia Delgado [facility] CBC W/PLT COUNT & AUTO 2019-12-21 04:39:00 [place] [facility] COMPREHENSIVE METABOLIC 2019-12-21 04:39:00 [facility] US ABDOMEN COMPLETE 2019-12-20 21:17:00 Sakina Chen [facility] POCT-GLUCOSE METER 2019-12-20 20:23:00 [facility] POCT-GLUCOSE METER 2019-12-20 17:31:[address] BRAIN WITHOUT IV 2019-12-20 16:04:00 [place] [facility] AMMONIA 2019-12-20 14:41:00 [place] [facility] BLOOD GAS, ARTERIAL 2019-12-20 14:28:00 [facility] XR FOOT 2 VIEWS LEFT 2019-12-20 11:55:00 Annia Delgado [facility] POCT-GLUCOSE METER 2019-12-20 11:28:00 [facility]ade[facility] diaz [facility] POCT-GLUCOSE METER 2019-12-20 06:20:00 [facility]ud [facility] OCCULT BLOOD, STOOL 2019-12-20 06:19:00 [facility] Sakina [facility] PT/APTT 2019-12-20 05:06:00 [facility] FIB[facility]EN 2019-12-20 05:06:00 [facility] D-DIMER 2019-12-20 05:06:00 [facility] IRON, TIBC, % SAT. 2019-12-20 05:06:00 AprilSakina [facility] (WITHOUT FERRITIN) Medical Cente r VITAMIN B12 AND FOLATE 2019-12-20 05:06:00 [facility] Sakina [facility] RETICULOCYTE COUNT 2019-12-20 05:06:00 [facility] Sakina [facility] HAPTOGLOBIN 2019-12-20 05:06:00 [facility] TSH/FREE T4 IF INDICATED 2019-12-20 05:06:00 Sakina Chen [facility] FERRITIN 2019-12-20 05:06:00 April [facility] ANTI-NUCLEAR ANTIBODY 2019-12-20 05:06:00 Sakina Chen [facility] (ROGER) [facility] KAPPA / LAMBDA LIGHT 2019-12-20 05:06:00 Sakina Chen [facility] PROTEIN ELECTROPHORESIS, 2019-12-20 05:06:00 Sakina Chen [facility] PERIPHERAL BLOOD SMEAR - 2019-12-20 05:06:00 Sakina Chen l [facility] - PATHOLOGIST [facility] W/PLT COUNT & AUTO 2019-12-20 05:06:00 Marcial Chapa [facility] COMPREHENSIVE METABOLIC 2019-12-20 05:06:00 Marcial Chapa [facility] T4, FREE 2019-12-20 05:06:00 Sakina Chen [facility] ROGER TITER AND PATTERN 2019-12-20 05:06:00 Sakina Chen [facility] POCT-GLUCOSE METER 2019-12-19 20:35:00 Pat Mohamud [facility] POCT-GLUCOSE METER 2019-12-19 16:06:00 Pat Mohamud [facility] HEMODIALYSIS INPATIENT 2019-12-19 16:02:09 Sharri Fernando [facility] LACTATE DEHYDROGENASE 2019-12-19 05:35:00 Sakina Chen [facility] ([facility]) [facility] CBC W/PLT COUNT & AUTO 2019-12-19 05:35:00 Marcial Chapa [facility] BASIC METABOLIC PANEL (7) 2019-12-19 05:35:00 Marcial Chapa [facility] POCT-GLUCOSE METER 2019-12-19 05:24:00 Pat Mohamud [facility] POCT-GLUCOSE METER 2019-12-18 21:35:00 Pat Mohamud [facility] POCT-GLUCOSE METER 2019-12-18 16:05:00 Pat Mohamud [facility] POCT-GLUCOSE METER 2019-12-18 07:45:00 Pat Mohamud [facility] POCT-GLUCOSE METER 2019-12-18 06:14:00 [facility] POCT-GLUCOSE METER 2019-12-17 21:44:00 Pat Mohamud [facility] POCT-GLUCOSE METER 2019-12-17 17:52:00 [facility] POCT-GLUCOSE METER 2019-12-17 12:22:00 [facility] HEMODIALYSIS INPATIENT 2019-12-17 10:33:08 Bill [facility] POCT-GLUCOSE METER 2019-12-17 06:18:00 Pat Mohamud [facility] CBC W/PLT COUNT & AUTO 2019-12-17 04:14:00 Marcial Chapa [facility] COMPREHENSIVE METABOLIC 2019-12-17 04:13:00 Marcial Chapa [facility] POCT-GLUCOSE METER 2019-12-16 20:55:00 Pat Mohamud [facility] POCT-GLUCOSE METER 2019-12-16 18:24:00 Pat Mohamud [facility] HEPATITIS B SURFACE 2019-12-16 16:02:00 Bill [facility] ANTIBODY [facility] HEPATITIS B SURFACE 2019-12-16 16:02:00 Bill [facility] ANTIGEN [facility] HEPATITIS C ANTIBODY 2019-12-16 16:02:00 [facility] HEPATITIS B CORE 2019-12-16 16:02:00 Bill [facility] es - ANTIBODY, TOTAL [place] [facility] POCT-GLUCOSE METER 2019-12-16 14:47:00 [facility] 2019-12-16 14:26:00 Sharri Fernando [facility] INSERTION [facility] HEMODIALYSIS INPATIENT 2019-12-16 12:37:39 Bill [facility] POCT-GLUCOSE METER 2019-12-16 11:01:00 [facility] CHEST 1 VIEW PORTABLE 2019-12-16 05:55:00 Marcial Chapa ra [facility] / BEDSIDE [facility] POCT-GLUCOSE METER 2019-12-16 05:51:00 Pat Mohamud [facility] CBC W/PLT COUNT & AUTO 2019-12-16 04:08:00 Marcial Chapa [facility] DIFFERENTIAL [facility] BASIC METABOLIC PANEL (7) 2019-12-16 04:08:00 Marcial Chapa [facility] PROTHROMBIN TIME/INR 2019-12-16 04:08:00 Marcial Chapa [facility] SARS-COV2/RT-PCR ([facility] & 2019-12-16 01:45:00 Pat Mohamud [facility] - REF LABS) [facility] Plan of Care Planned Activity Planned Date Details Comments Source Future Scheduled 2020-12-[address] [facility] 00:00:00 examination [facility] (regime/therapy) [code = 846837190] Future Scheduled 2020-12-[address] [facility] Test 00:00:00 examination [facility] (regime/therapy) [code = 513713751] Future Scheduled 2020-12-[address] [facility] 00:00:00 [facility] of [facility] colon (procedure) [code = 102054387] Future Scheduled 2020-12-[address] [facility] Test 00:00:00 malignant ne[facility] of [facility] colon (procedure) [code = 987564940] Future Scheduled 2020-11-29 INFLUENZA VACCINE (#1) [facility]:00 [code = INFLUENZA Medical Ce nter VACCINE (#1)] Future Scheduled 2020-11-29 INFLUENZA VACCINE (#1) [facility] 00:00:00 [code = INFLUENZA Medical Ce nter VACCINE (#1)] Future Scheduled 2020-03-[address] [facility] - Test 00:00:00 (12+) [code = Medical Center DEPRESSION SCREENING (12+)] Future Scheduled 2020-03-31 FALLS RISK SCREENING [facility] - Test 00:00:00 [code = FALLS RISK Medical C enter SCREENING] Future Scheduled 2020-03-[address] [facility] - Test 00:00:00 (12+) [code = Medical Center DEPRESSION SCREENING (12+)] Future Scheduled 2020-03-31 FALLS RISK SCREENING [facility] - Test 00:00:00 [code = FALLS RISK Medical C enter SCREENING] Future Scheduled 2020 PNEUMOCOCCAL 65+ YRS [facility] Test 00:00:00 (1 of 1 - Medical Center [id number] PCV13) [code = PNEUMOCOCCAL 65+ YRS (1 of 1 - [id number] PCV13)] Future Scheduled 2020 PNEUMOCOCCAL 65+ Y[facility] - Test 00:00:00 (1 of 1 - Medical Center [id number]_Pgabgin PCV13) [code = PNEUMOCOCCAL 65+ YRS (1 of 1 - [id number]_Kthlupn PCV13)] Future Scheduled 2017-11-[address] [facility] 00:00:00 measurement Medical Center (procedure) [code = 77722782] Future Scheduled 2017-11-[address] [facility] Test 00:00:00 [facility] Medical Center (procedure) [code = 17546157] Future Scheduled 2005 SHINGLES VACCINES ([address] [facility] - Test 00:00:00 of 2) [code = SHINGLES Medic al Center VACCINES (1 of 2)] Future Scheduled 2005 SHINGLES VACCINES ([address] [facility] - Test 00:00:00 of 2) [code = SHINGLES Medic al Center VACCINES (1 of 2)] Future Scheduled [address] [facility] 00:00:00 (procedure) [code = [facility] 70057960] Future Scheduled [address] [facility] Test 00:00:00 (procedure) [code = [facility] 10420741] Future Scheduled [address] [facility] Test 00:00:00 malignant neoplasm of [facility] cervix (procedure) [code = 732698252] Future Scheduled [address] [facility] Test 00:00:00 [facility] cervix (procedure) [code = 579442890] Future Scheduled 1974 DTAP/TDAP/TD [facility]ACCINES [facility] 00:00:00 (1 - Tdap) [code = Medical C enter DTAP/TDAP/TD VACCINES (1 - Tdap)] Future Scheduled 1974 DTAP/TDAP/TD VACCINES [facility] 00:00:00 (1 - Tdap) [code = Medical C enter DTAP/TDAP/TD VACCINES (1 - Tdap)] Future Scheduled 1967 COVID-19 VACCINE (1) [facility] Test 00:00:00 [code = COVID-[address] VACCINE (1)] Future Scheduled 1967 COVID-19 VACCINE (1) [facility] Test 00:00:00 [code = COVID-[address] VACCINE (1)] Future Scheduled [address] DIABETIC EYE EXAM [facility] Test 00:00:00 [code = DIABETIC EYE Medical Center EXAM] Future Scheduled 1965 Urine screening for [facility] Test 00:00:00 protein (procedure) Medical Center [code = 687507309] Future Scheduled 1965 DIABETIC EYE EXAM [facility] Test 00:00:00 [code = DIABETIC EYE Medical Center EXAM] Future Scheduled 1965 Urine screening for [facility] Test 00:00:00 protein (procedure) Medical Center [code = 740909600] Future Scheduled [address] [facility] Test 00:00:00 malignant ne[facility] of [facility] breast (procedure) [code = 362171854] Future Scheduled [address] [facility] 00:00:00 malignant ne[facility] of [facility] breast (procedure) [code = 152692192] Encounters Start End Encounter Admission Attending Care Care Encounter Source Date/Time Date/Time Type Type Clinicians Facility Department ID 2020-03-28 2020-03-29 Emergency Chato Fine [facility] [id number] 15:50:00 20:31:00 Maureen Terrazas [id number] [place] [id number] [place] [id number] 2019-12-16 2020-01-01 [facility] CadePat [facility] [id number] 00:14[facility] 10:00[facility]00 [facility]-12-16 2020-01-01 [facility] Pat Mohamud [facility] [id number] 00:14[facility]00 10:00:00 Encounter [facility] 2019-12-30 2019-12-30 Anesthesia Rhiannon Underwood [facility] [id number] [facility] 13:11[facility]00 14:14:00 [facility] 2019-12-30 2019-12-30 Anesthesia Rhiannon Underwood [facility] [id number] [facility] 13:11[facility]00 14:14:00 [facility] 2019-12-30 2019-12-30 Surgery Neeta [facility] [id number] 12:30:00 13:19:00 [facility] 2019-12-30 2019-12-30 Surgery Santacruz [facility] [id number] 12:30:00 13:19:00 [facility] 2019-12-28 2019-12-28 Surgery Belkis [facility] [id number] 12:00:00 12:54:00 [facility] 2019-12-28 2019-12-28 Surgery Belkis [facility] [id number] 12:00:00 12:54:00 [facility] 2019-12-17 2019-12-17 Travel [facility] [id number] [facility] 00:00:00 [facility] 2019-12-17 2019-12-17 Travel [facility] [id number] [facility] 00:[facility] 00:00:00 [facility] 2019-12-16 2019-12-16 Amber Anderson [facility] [id number] 00:00:00 00:00:00 Only [facility] 2019-12-16 2019-12-16 Amber Anderson [facility] [id number] 00:00:00 00:00:00 Only [facility] 2018-11-17 2018-11-17 [facility] [id number] 11:30:00 11:30:00 [facility] 2018-10-06 2018-10-06 [facility] [id number] 16:14:00 16:14:00 [facility] 2018-09-28 2018-09-28 [facility] [id number] 10:30:00 10:30:00 [facility] Results Test Description Test Time Test Comments Results Result Comments Source ANAEROBIC CULTURE 2020-01-04 10:26:00 Test Item Value Reference Range Interpretation Comme nts CULTURE (BEAKER) (test code = 1095) No anaerobes isolated Tissue [id number] 10:21:00 Test Item Value Reference Range Interpretation Comments Case Report (test code Surgical Pathology = 104) Report Case: [id number] Authorizing Provider: Tala Santacruz DPM Collected: 12/30/2019 01:38 PM Ordering Location: [address] Med/Surg Received: 12/31/2019 06:52 AM Pathologist: Jovita Griffith MD Specimens: A) - Soft Tissue, Other, left 5th proximal phalanx B) - Metatarsal, Left, left 5th metatarsal DIAGNOSIS (test code = [id number] 3220) FuZzEwMzNcZnRuYmpcdWMx FCnzitUwIEcnt8AaU6SxQe AwMFxhbnNpXGRlZmxhbmcx KJHmCNA8dhHcXOErGYcfMF QpIJybUc6yhXYmcYymKxNn ZLMms2hxzfVPzzqzrKs1p3 tqHUUaZrB0pNYtNSdfU4vg btNzoXHcXQRpBXx2yX46DL NkrR9olXVvYOqoqtOkRwG4 WQqjVEMkTcY8YPYyrWCjCS ZaS4anPPUtHIpcAWLhDFxq cRJxEYQ8qQkqu7Q2iCUfaN QekHgfIlMiYcJoFIAEk2Fd RSs7aHlgQ1VsDMViDwP7gW QgUGFyYWdyYXBoIEZvbnQ7 bG86FCfatlC2hYYif6Eqe1 7yz254cW2lmUYkIFU3TCUs OKXuyXUaYRUoDMB0LJSmxY IaL1m3HpOjbDYrX0R3ExAm jFCwG8D5EyPnpCSnZ8Q0Uj XmdMWoCTLfeIVzKh4mcYCj gYOhuz7lbo59EJY1x7EruH tyCXH0UHI1EbHmAj9elVEg BJZzLS2xZrNucMMkAHEvsf 32nDoiCUvrxzJaeZ3mOqIz MWQmiTUjJZXlMM6meOCwQC PgpN4gbopiNTHhNdJlviyn SAEveTfjajTnJe0hfTunVM V8LSmlK0uuzX1bNyN3WHod C9qilS0nSWq1MRreyGW5SG DlcR5bTW1rsiwcf1isBbHg XW9rmfeqw2cbBnLvXO0oai u7i7nsMuYhKG2soqdkj3wo NzIwXGhlYWRlcnkwXGZvb3 AhnfbiOEDng8YcE2LxxLky O71lwAtdF93qJQGqkXoujM 5poRjvaO5hPxHmPqKcNQpw bFxwbGFpblxmMVxmczIwXG zvtkjjJZVjEGpiA1rqXpEf ILIqcIpoFNsly1GeGLUuCS VaEoKkEO9hNt3WAQosYMZD OIGZHGBKFYFNYe2GXO3RYA KAYZPRRZ2MCBMIUW3JW3a1 LRNzfpSmZGNmYRAEOM2sY1 zFRFRHPqQKTlnJPH2OFRKZ UlRJTEFHRSBXSVRIIFNVUl PAXT3MJL6TGFOUSCEAIDIH RCBDSFJPTklDIElORkxBTU 1BVElPTlxwYXJccGFyIEIu IEJPTkUsIExFRlQgRklGVE ggTUVUQVRBUlNBTCwgQklP UFNZOlxwYXIgICAgLSBBQ1 QSURBXB4VGZ29QJYoFVMeK IFxwYXIgICAgLSBTRVBBUk JYWMBZBrNGKEKFFXIaE7Eh SnpTUr0GH31QVPOVAXRTAA BRX1NPAIVUPXPTDQPFU2VK S7PuIP6IW9JNU0bRFQOQTM BHUkFOVUxBVElPTiBUSVNT MCXkRf8HRRZOUN8HGQTaim 89XQB3KkDja8I4DIY2JOUs MMDtp2jgVIKhzEGfJsJkIa NcZnRuYmpcdWMxXGRlZmYw l6pbm116vQWja4eoNQExNx J3vXVfJUAuoHRtM690PHSi DNqzx6lov8TpPYEkgVUbq0 A0GQCDajowtVt3lTpcO24k y7U8YkveO8lmZRHrBUZrZ9 WcUZ3oVPQdDjz3NLX1FWD8 XDOrHNFmR5FyDZ4eYQGlsH XtVHh8s6kmoUarXFSkDUS0 v7dsZXrtzpMaXM5ryw9gyA g0w4zooeFzXZFmFHFymJYS FBZwM0YmeKvpWu4lpPu4eF gcLxblVPJ8Gwg4EH5fav41 vls0nHluADGgsbbiJrI0ND bjNUQlheooFMm7DIxyGHBb jIL0FFPovOUpP3QaYYWdTV 9jehq0JGO5WPvoYYViEaV4 NDBcaGVhZGVyeTcyMFxmb2 13ALU2BbYtZR7mN0Ghn5I5 gC1akCZwHIBieKUbWgLpGT Eyxi7jpYFxYFuqg5CdIBP4 fuM2lDAalACgZSUiZmC6OI wcAW2vqw69QJXrOUF3yr3l bGNccGdicmRyaGVhZFxwZ2 BdVYXaa568KLEiW4CiAKGm q4S7hpMzZxOyGORrrJG7av W5EDCuGU5sfgssc8zzNKfq ILupWQKurbO5fbU5TFVpxN HeM3ZmwU4lZQTkWJ2iunxa j0whETT0KRzlVGAiCCB2Yv CnBPPpf6Bnwpw7WcItz5Ex vQSvBLbgM48ou696JXVmyy WiU0stuOVigxtdzJCmrqor DLbokxP2EQYqBSwdfsdvOW DuWEhfW9paFdNtYMGcnSlf LGlvy1FmAINfBCYbTuSawZ UtKUHlOih2LPIscLGxTRGa JtXtE9jlksogIyWYCNFhl1 exV9nnmOPBdCXlO9JnHQha moQqXRttXDpzRWA1MUC8Kc 23XzD7LFFabz26 CPT Code(s) (test code w4mkcSEaILMzrHThSzLzAG = 3357) QsKBAhn4ahBRRwuPSdMuFt MzNcZnRuYmpcdWMxXGRlZm Qzn1nwy122sFEti9pbXUYw EgD8mVCiHRZypYAfC920f6 ngp3wryrQtcJM9FTQvOKN6 POvplgGtljD0DIgmwNSqEr M9ORozyoZkTLixsxFavqGo Avz6XRXjT402RRP3tXxrj5 ulHWN6RXEhQNNkZmWyCk4u vYOcW943SLIiKTRAYCPinY t0ORFmknKepzMxaFRVz096 G915o2cxLYIzlfCmtEuKmu otp9siV422WSPgbPAhegHd VfWqNCPpoPGioUO9PLAtOW 1fpqhmCaKiSZ1hrctdQuUc YQ1ibzw5AqYdNW7irfoxNn PgADqfZRVnacdrSMPpa4Xe rxfuLX9wJ9Yaf0S1bT0kmJ WmCFUkzOLoMlFsEAGsha0v xJAlFCfgq6OmZAM1mgP3jK NuoEQqXDNjUE11Zevxc2Ga DjueWJU4DSOtwiKte9Kus9 xtIfNeciCjT7qtW2QrLOPp UKUrRJSgYlFmrwWpm2Jzw4 OykPUqbCr5d2oqEXNfYKNo aWplr5roLPZ2QFQkS9G3hM Qlx8mxOMykUXUvcGW9klel ULzrXPRgzkB1sxkbAStpAF AnnHP2cyyxCNkiHVLvToG9 ffqbZTznNQVfAPG9HXemf6 78WIZ6FIjeWazyOZgtBXLj bmNvbnRccGduZGVjXHBsYW luXHBsYWluXGYwXGZzMjRc xJueeSghaW2nOnTlKjBzGK enBJ2dDJNaW4rmoYPgYNXs OXIbC9gxIgUbaR3zqAhmSG ezmsCgWB9NH5B8VDDkwvC1 QTUzRqT1DidfLIXuCTdgTA EgeDJccGFyfQ== CLINICAL HISTORY (test k9gblFAyZFCwqQScObHrWY code = 3356) SjDXJut9nuBTUaoNFrGdQo MzNcZnRuYmpcdWMxXGRlZm Rtw4jxv084fMFhu0skQGSu QaR4rLUoILVlqXEhR505u2 sbv5puodOhiYI3FYUmBBA2 FVzbobVghoQ5PQfefWRzIt Z3JKhmhlKyGPwkwtJdvvLn Wrd3JSRsX588NBY6gMenr8 aeRPZ5CSWnCILnWsDzGm8e rQKxK686EQOsWJDUAGOwqZ r1NEKqygHgbnHhoIGOg237 D467s9khZOXkdaWmkHfUpv pld3exV474YSWccTPipeSv UjFrJDKfuAZhuPX0SXUlFX 7vqmalIxQiKK2glxpvFqXx HZ7jcff5QoDuXG7tgxtoJp ToBSkhWKQipnyqNVRck5Py yddgOZ5gI0Mpe3N4mO6beU HzNHYkrDXvCyCeWYXijw4t aLNjYOgxb0OkZGA8vsE7tN PrzTUkGKUlGY25Slxxl4Sa VxuhJZD1FWHeowYgn4Ilk2 jiNuVnanMcL8mqR1JiGLQw ZICkLMVhBxUotmTcj5Ohn2 SwzHEjkEe7q5hxQSXlOPKr fFeri1zhUIU2DLIaQ7X3kP Znu9rcRWnvSKPlcWP0khcp GBfbQHEcbcQ7rekjWJnjSG KvsGK7zvebMTykHMMkZgJ5 yxwmIAgqBUQiPGX6LZcxo4 56BAS9XYfqTkjfHGvrBIPb bmNvbnRccGduZGVjXHBsYW luXHBsYWluXGYwXGZzMjRc qPuelXsaoL4rGuMaLdVnXF bzZW2vJJOeV7cukRGwAIEr GAIyH6daFbGbtO0bdLjxXY oaykJjDM9teENoiBjolWx3 xNVnc2CrvVDmfGB7yBaaeP N4HVYgkhAusJwbkMuqTJOu d2UtEoixARYwrhPyTUQrCZ RccGFyfQ== SPECIMEN SOURCE (test u1micJGxPOYulXSiLlGnQN code = 3377) YaCPJwx5ukEDZqlRQoExHd MzNcZnRuYmpcdWMxXGRlZm Yps8cth480cWIzm5qiTTGy RbP9iRBqZTHzqREcW073i1 qzh5kapjRwkNK7IWFiKBY5 GJdggsIbtqS4DRhqwTJuNf V3FSybdiWiVUpzmrIhrqPy Npc3ETLgY799MYM4wUlgd1 qyBST7RLKjLIWuDqFjHp9x wTHnU996DOSfXURLAHFacI t2LTFnjwGebcYvsRPQv960 L956y2bxFLXzeiOwgNjPsa bde0alB473GHVrvJMpgmGk McXzBGFyjFSwvNN4IMGwSO 2bclwhAfJeZW4iuuagZiFq IB3fhzq0YhUiCE5ofkhsRu YrVNznGLRvzteoHQObs8Hb eydtSY3hW5Iqo3X1hF3jyA PjGDWyeXKoYmRwBAQxkj1e qUUtQHhor9KtGAH9llY4xM QjoPGuTMDlJI58Eqlef2Nq GdruIUX5BAKgkzDeo0Dfo1 byLtRayeCdR5thK3IwPQZr KGBoMLHlRmJjxmAxz4Edl0 VcgLNdbGl4x2yyTHCcMUQa nJzfp1brDFZ2ZBSrE6P6cQ Oia2veEWruMVGbyCB8naea DTkhSLZozsJ5ogibJVvtKA CaqKO0umwpIPodHCRdYaO3 ppiaJJtqNJYcDWP5TEhig8 97NEZ4MMwfQixkCIqdKIUr bmNvbnRccGduZGVjXHBsYW luXHBsYWluXGYwXGZzMjRc uEmovLzggQ6yLmVjCpOiZQ ycRG2oMEQrW4ckvTRrMHAu KHZkP6rzKcItrI4mcPteQZ xmczIwIEEuIExlZnQgNXRo USGsm6jbpKVhXROtEZclcl rgBCUyOCovWiPuOWBzKN1z gLQ4KJEvJCtaLYVfnw3= GROSS DESCRIPTION (test o6cxrJFnHRIxdYWhVfUhQT code = 3366) RdHIBbr9rkHAXghGCzMrBy MzNcZnRuYmpcdWMxXGRlZm Uaj1rbf827xGRya0ljSHXr OhX8vKOtKNDjfLSfI170DO QeTQtiv5dyi4RkHFFmtEOp f4V1OIEYklspfUi5cRhkP0 9ij0H3NybeZ1dzKQYxTRBj T4FvBX8pZSRoNlo7XDN6CG T4NFFkGJIaH2XfIU3cZCJz nYVfBTx9a7oneOlyXTTwOD Q0a0etUCztypOrER2xer6k bLo4s2hzzxXkOGJoZSNhaS CNVTQqD4HrxAshNn5ycKk7 sNhkEjvmKQE3Cns7LC7qoy 93rhd8oQedPHQjeywxGaD6 DDuuHFHzvxsbIPv2IDxzXY JnbDcyMFxtYXJncjcyMFxt YXJndDcyMFxtYXJnYjcyMF dvPMMuHXJ7GHitl883CXO8 FYgaz1rhg2ybvEYlIhz2KS KfXyEoMrtyFHtly3Nim1vq HVMqyl4fPBQ5sDTblPmgi7 R1xTThSSMhqEIejlDgKPVh AbC3WZysIX6zry96JKAtTU T3im6iuLUixCsalgSskHWf XVzlI7QtWTKik430RXMiO0 KtVQBms3I2alXiRkMsMDAx qPU4rxX0VHJwNAl6wJZzbu J9ajBebRAdS5dovC41DdKd aBGzC5DmpL81ZoQraOBbO5 ZqyQ98ZxTtrVVkV0RsnM80 YdImpYGwCULtiAJaJn3rkM StbLVjw7RazTIrSSnfD62k a508EQBcoeLtB8rzbEKpti upkXTzwfvnRZctxdV9SOHb XHBsYWluXGYwXGZzMjBcbG FuZzEwMzNcaGljaFxmMFxk FpNsMEByOJryJ5vmKcKtOc SbCOBVbWNpyM5zsaTMUFpf ARTkS8QhkaJyPJqlXMQvpT S8nIWiZKavRpUjMGGom8g8 hAC6uXXqjGV4lKHzfBbwDS 7jrCUkWR5zLR9eHNmmMXft ylYox1CwHW53oDZqfoFtcc QgZGVzaWduYXRlZCBhcyAi o51vvRY8vQFwcNMbWV48gY PgRoqzL27bl3zndOXyl1Jv f5hmeZEpgOPciP59TUXnin YcHlUiW68oewJpUP7bLXG5 cmluZyAwLjcgeCAwLjMgeC TvMzKbE23jTLOmBPDimQDg iY2luxSmoaYvzLCzwBL0LH ElKA06aWSutDfwoX60lhSL BBEcxvJjtA83xpOpUJPfbM Agn9c7bLdrjx5scECcOLKo opWOvGOfuS1tfyGBHHhfPO CyC8RcybFfOZqpGXHlyHB1 vCQqBLycKdKdFRYgc8k9gE Y7xXWrsGO1cCZacFxvSP1p iQVdBT4yYA9oGXykFPwgtm Smp4VqOZ00xIOpztWqxvTf ZGVzaWduYXRlZCBhcyAibW G6RBEcqcOfsIZaDPN0Zqpn M69mo1yzoPCjj9DaYd52nj FzZZIrZuWup76hiOjbf7Gd LAKeXQVms13kYEEjGAcqWU 31lxMhAXJhkWFysnjeUo5h VAwvAX28VCgpKI53HXPfMQ xeNWYsJ4WzW4R4SF2qaWns IHNwZWNpbWVuIGlzIGVudG gyZAh0MDgmeIWzyepsOYtr czIwXGxhbmcxMDMzXGhpY2 qdIwCgLITnlGtlFYowk0Vq KRLzOHGuOfZmHpEsUG8lTD pybF1wRQGyPNztl45qlEGq s82gHJMtLErtWPVcEFMeZd BcbGFuZzEwMzNcaGljaFxm AWgvQdHlKAIuZCwuH8ehIq BcZnMyMCAgTUcvZXdccGFy fQ== MICROSCOPIC DESCRIPTION f4hhkWTfISTekYQtFqKuST (test code = 3371) NxMYYxs6rlQFKqyMSkXaEn MzNcZnRuYmpcdWMxXGRlZm Gnj0gjt335qIZbl1yjFVUa QiV4hHLqBFPcjOXiT451m6 odi6rmuiKamXB5UESbGNL9 TFomczYqlbP9HCrnfJBtUk X4IFjxvxAwTNadmcSkecEz Zth9GKCeH610AGA7pFfcf4 omHEO8LVIoLYNhNfQgTw2w iNIaO111WCWiHXLDTDGhbZ z9FVLcfuJsebQxiYYNv457 N223y1dfUMZhibKntUfGms rok0rrN852IVAzkCIpgeOa LmOwJFBxkWFrpYG5EVWyLJ 7fnaizAfTeLT3kltdpJfJa XH2bkex4QvIuYW3zgihtXh YhQKeuXLLorkqqLGPvl2Tl qyavPS8wW2Lxc0I9qM2gtZ XkRMHvhOFzCcCfKDPduv7g jDXpQIjcc0OrWID0isN0oP JfyLNyBVOcPE00Vpipx7Ax NwnuUXZ6EYHdqlYyp2Piv5 bzEiXaznPtT4kpV4PeCBHd IRVuJUJmOyJznpRbm4Dfr6 HkrKKidGn8u3pzOOOsDCTv qEqdr6bvESY9QGSdE5F2bG Tsd4gxZDzmBCOsfUY9ehdw TKamBWEscoS2xaywZPjcPZ UelHH8gsqbVDnbYCYoPeW0 cucvRPcsKDRcANG2VDtjk7 32FRX8GIkvGpkuELskTSEp bmNvbnRccGduZGVjXHBsYW luXHBsYWluXGYwXGZzMjRc mZvciMnvhV4bUqDbWvXwXJ khFG9fCLBjH8dpdHUjUCAv TTXmJ4iqIdFqgM7agCpbFR qfobMmRYIbEf7eXEFuQw4z bWVkLlxwYXJ9 Gross assessment was [facility] performed at ([facility], Department = 2777) of Pathology, [address] [place] [address], Technical component was [facility] [place] performed at ([facility], = 2778) Department of Pathology, [address] [place] [id number], Professional component [facility] was performed at ([facility], Department code = 2779) of Pathology, [address] [place] [address], [facility] [id number] 10:21:00 Test Item Value Reference Range Interpretation Comments Case Report (test code Surgical Pathology = 104) Report Case: [id number] Authorizing Provider: Tala Santacruz DPM Collected: 12/30/2019 01:38 PM Ordering Location: [address] Med/Surg Received: 12/31/2019 06:52 AM Pathologist: Jovita Griffith MD Specimens: A) - Soft Tissue, Other, left 5th proximal phalanx B) - Metatarsal, Left, left 5th metatarsal DIAGNOSIS (test code = [id number] 3220) FuZzEwMzNcZnRuYmpcdWMx RTmmxnGtSRxqb8EaB3SlOf AwMFxhbnNpXGRlZmxhbmcx BKHrHMK3hgIpFQXvKUupTN CsOSrpKm9yrPDngChwKlGk ODOvp2ircgOMskjtyDt6f3 xjZQTwCqQ6jGAnIIpaE1vy sdYtrVGeHDTmXJy9nY75DP OqcE4itNCpSHfaqfMkAtA3 MNozZFNrSsT7OFTqhRSbPV YbR7zeTCMsDWudVYSbWGkl iNNfXIX3rAhnv5H1oOWhmB QkhMayKcDpErPsZXCFy8Ek QMw2lUiqV2RjVRAzZmF2oL QgUGFyYWdyYXBoIEZvbnQ7 pZ57ZImeogF6kUFoy3Zhu0 0va864sZ0nbXZaAQR9JUXl NWVuhIGnFBRcWWH5RAVngB YwP8z0EdElbCYqU8L9CmHz cJRzM2E2TvBxyCHxJ3H9Bs OdyUQcRFPzhRTpAv1fuKTg cMNypu2zul57TRD8b7UvbV vcWXX2OVM6MmWqUr3crDXv HKHoQJ7zKlElfYAmZMRgjd 75lSoiWYbeblCzsV4cFvGg VGSayDWuRQKkEB1itKMaHN NhqN3edpjaZFXkZtZyvnnr IXFlbNgklfLoWz1ksHbkST V7YTzbT0sxyF1kZmZ4PKuc A5xiwO6oTTe1ZBzqmTJ0KR JdwA1iLP9yskhho5knByRp TE7sboyfh8ulEcCtFJ9zrn a3o7cgAvVpKM3cdajat4af NzIwXGhlYWRlcnkwXGZvb3 RicaggHMZtk7VfZ7ZkkVmz Y96jfVkeP00tUXQrzAwyvG 5sgVttcR5oCdCmThGsWPil bFxwbGFpblxmMVxmczIwXG hqzhecLKZuOKigJ6ulUtDd KCIroBycXTmau8LoRXDlEL IiNpXhWT5eOm1KORlnDACG SKAHSWIBBYZATi8DKI8PVE KLXHANRR9TPTBZAB9LF5r5 PCZmokOfHGRbFYUZKB2pT2 pBFLWDGqJDXhdGWL2WBYDF UlRJTEFHRSBXSVRIIFNVUl OQWN7ZAZ4WYQBOMWSYVDUI RCBDSFJPTklDIElORkxBTU 1BVElPTlxwYXJccGFyIEIu IEJPTkUsIExFRlQgRklGVE ggTUVUQVRBUlNBTCwgQklP UFNZOlxwYXIgICAgLSBBQ1 SYLOSHU2ULO05VRBrVCDsR IFxwYXIgICAgLSBTRVBBUk PGQUUJQsLXMLDUISTeX0Lj GbzELi7TD63OEFXROCSHKD GWZ7YFEJXFPKTOSFCIK9JD A3WdIO7GT1CNT1cKNLNMFQ BHUkFOVUxBVElPTiBUSVNT GRDiKw7WTPIHNB5JSYHvrr 19CZE0YcNpf0S9HGR1YJZu YHKsz4qpMDWtdIBkHyOcOz NcZnRuYmpcdWMxXGRlZmYw k5nie719fKSqv2qoKWTjKy B8yLTtWNOmxNWsL172OACu VXomn5uqf5QxOZDitWPwf2 D1AJFLifrcgCl0oIrvL62i a9A0WeadO2nzBTIzVYBhC8 QgJI3pZRYfAzl3MFQ2JPP5 HSIrXMQzP4XeMW4oEHEvlT GzKQm7v6eenFafHDUvDUP7 t9inGXywciFhIL0ayb0lkG h6u3yzuwLaLNCcIMDvzKAT HEOcN8YhnYkcDh8spIz0lD uuPobvVPF5Umm6TR9mwk11 nhh5lPooZHXrrfntYmL7EL aaOUQjlkjpRSc9KZwnCARw nLN7NHHqqVAeE4VcZADaFC 2htdm6WLQ7LVvoTJFnMcI7 NDBcaGVhZGVyeTcyMFxmb2 96EHS5YyByJN4tJ4Mzs3G7 pQ4keABaQQUheOEpVnUrQU Jgxp8wiCDlHVxpw3LbXMN5 rrI4aZOvoDWsUGExRnF9TH dxAZ2dfp59TVSwWAF4ro5d bGNccGdicmRyaGVhZFxwZ2 YaPIWel002CBRpU3KyLNNv e6C2byMvAhMaJRNnySF9ze A5CDBfOJ9jpptoe2ogLHhy AObjXZUsqbY5qoO2KKLmsC KqH9GkmH1gNDJmZJ4cqkzn l6yzLWX2DOwbUTGqPEN0St OtNSNze9Vrgla4HwGcs4Ob lRVoSGohG79to645KPOblg HuN2sewRHzzskjfHWtayel OLhcsiW8TAVdIUgmcdkkDM IbQBblX9nlQiPbMITdbHvz BZghd0AlZKOwDUNaImAxsU AxKTOmXic9ZXYhoVCzJPRi FoJfO7alcxnmZdGTWDBqk5 uoI5ilkNFUbXCjP5DjVZgy nvGyAJnnTKdeCVO8PVO4Ye 62KfL3ASNjov09 CPT Code(s) (test code f4penKQvIWDxzCPuBgVqIF = 3357) TzIECzx6ukATMxlVAdHlMl MzNcZnRuYmpcdWMxXGRlZm Eyg3sgn675wCJnf1fuVFMj PfK6jOYoVQSvgSZyC379z7 tlh4crboYxyNB1UKNeLBI3 BGblpmCdkpM2SKsesQWzEt T4LScjzgNdJXidmkNwobDo Ojs8IWXrN215DQZ1qBtjn8 ccJAP8BEQtTEFvFjIrOx0i iLVtA039OZOwBSKFPFBtrG f0VZKqfnGzdfNbvTBBc043 M035z0stIZCovgHyjSqUrn vbn5ggA264LEBdcPUqkiFg WoFhVIKpiXBwzTY1HHQtRJ 2hutquJkOvGG9dvmhqVvMh HZ9svud2SxYaRN1rlrysBo YeJNbyYOFdhgtfTAFah4Ef keivFS9pH7Cet7M7cA4viF TuEGIhzEKfZoSpSDQvzy9b hRJuUXzhz5FeCFR5llW9nW FjvIOpGIScLP21Jerxl8Dz RigxFAR6NKMcxeQxm5Bzr8 meMaYxhrWjC1ayG2ZfSPLf PFKnHOZnHcTacsEmd6Uqk7 AjbQObfYc0n2dxIYJrRSMf vOaal1lkASN5EMExD0V6aG Tqi8tsKMsiBFLxdWQ0qmnx EWubNVCxtdP6iggoAYrvRO FhoBG9qlakTJevCOVvGoU5 rxoiVYbxVBSeYMU8UQqvk5 38AVK2LChfIcvhYNeoEEIr bmNvbnRccGduZGVjXHBsYW luXHBsYWluXGYwXGZzMjRc lChomGrszK2tGuTcYjNsJL iwQP6nDFPmV4hbbGEoAMUp TBXhT7odKtSemZ8gyYgpIE zumzTbTU5BB9I4MMIupaA7 GTAyIlB2BiwvSPPxJOgxCR EgeDJccGFyfQ== CLINICAL HISTORY (test b6npxDDyESXynONnOyHiWJ code = 6014) ObBAGby4pyOAJvmDPqFlIe MzNcZnRuYmpcdWMxXGRlZm Xtv2wul973bAEeo1kvDNSz SoP7sVXqGCBruQIuM073f2 ffa2djtfKanLC4AMAdZVF8 OShnlkWwkpK6QDwgePApTy H1CXryzwZuRNcxzlOpfeIl Yko0VBAoY959EGG0lQsbo6 kmLZM0HLDaLOCiSlSkUi6e vCRwQ042UJVdTZBXNDPstC g7FKNsfnMhccAmiONVy199 D643c6xiSLLbrhUudUlCql esa3euK196YMBuhRVlmqVi CcHnNETsqTVqhFC4XWUbOX 5ieclvLrGxHQ5ymckqVoCf QA4iweg2NxAgKC6gmvytRi LeRWkrXUWzwmxgORGgj0Wq ftjqUB5eP3Sfz8W4jJ5bzF XkXNUyxFEdGcFhPZSooq9q oRLlYHhsw9VlLAL8xoO4jN AokHOzHSTsIN88Phibi3Xt LuqsWGL5YVZxkqAsc8Eto9 okRtKohtYaB5raU5QvQIYt KTLeSEIqMtUahwDjv3Gma8 NvfFGqmJh5y3rpGIWoBOGi zZxvi1cdYBJ1QUIjI0C6nW Gyk6dnNRkeWRUrbKU2aauo EHwkAGWuhwE0skvpLUqyPI ZliRD7vavpXAaxFEKiGlD0 oksgAOiaKDFxECT9GRdae3 73VFN8EXvnXjkdRGftKYFy bmNvbnRccGduZGVjXHBsYW luXHBsYWluXGYwXGZzMjRc tFyvoTgylC8rXgNhOkStGP viVD6sRFErV6ohcLJyFETo LWYmQ2udSnSedB8uySzxPE wuxuKyWH0vbESynZkeaEd8 eQBbs8NfwPGlhFM5nPdjrR G9BJBjfsEubJqotIviLATy h9RrRhzoHGBmcnSwEKZcQL RccGFyfQ== SPECIMEN SOURCE (test y2wtaJUgQBIpnCAuLkEbMD code = 3377) CxOXMoc6uxDSKvsRVtKuMo MzNcZnRuYmpcdWMxXGRlZm Ssn8izu457gRHlr4qbCTOq EpD1yHEwFABivBSiA559s3 ara9vbwgDwfWT7IGUfFDL9 JAblkvIrbsE7PCinjXCaAu C8TMqdewQmNPmbflNkxjEh Czb5NYCcL046VCA1lDbqk0 xqMHO4AHWhORIgBvJhSd3s iULyS701CWGuTCRKMPVaaB l6PRHulvZonnKnoMAFf832 E745z1jaFQRfedYjiHaDhk bdd3uxD874CMNmgMYlcqXp HpDtSHDjyXUrdXT0SJUrOO 2urwcrRtDaTK8reaxnJsBi BF2cggp3EdVzRK6wfnxzYq FiEYxvOMPnaaijGGOxl5Ae okzePM6jX6Rrj8G4pH2spO XbYFSzlCSaCdJqMEIxmz6q mFIlVIvfd5PyWGV3owQ4uQ LpdIFaOQStEM51Hmmhj0Ie LvtxZXS8OUTsqqZfq8Wjs7 cpIhUcuqSxX2gcC2GmCHIt KSPoHTFwIqDyqfNcm9Dtj5 UbmWEssAr2s1yiTZZxUDWx wZmmw7qdNCN5QRJjH9N7pT Gfd7hnQTpsSXBjbZV1axif ACyyQUDdivT1zgsmYNqgZI LnqRM4isbfQFeqBWHpUnP6 tfhfJFwbRSSjZPG3EUyua9 59MAB2QGdfHmooEZjjSDMo bmNvbnRccGduZGVjXHBsYW luXHBsYWluXGYwXGZzMjRc wUikcRbmoY3aTrXyQoUnGW btWZ9zAFIoW3jutDFbTFZs ODVeH5mhGpQgeP2tzJevVQ xmczIwIEEuIExlZnQgNXRo CWNpd2ikoGWzYXAnYOalvs buCVMmSKxjYkZjPRUyFO5o pIH3MIWsZKjoJEHnng6= GROSS DESCRIPTION (test l1utxOIhYKTtpZEuTkOvLF code = 3366) FzKGYdn9vlXFShiWIaAbKi MzNcZnRuYmpcdWMxXGRlZm Gxw8lvp621iMXqo5uxLNCb ImC2mUNaCGBqwAJhM795JQ JeYWtgd7okh1RiMTIdcOGm e0I9BJXBbegstRr9cZvfO4 5zs8Q8LmruU3tqCUCdEBFj O1XrOB8zGBDxUgi3NNB9DB P7XOSkVTBiY7BiVI8eBNBt fTRuUUf3p4ctfPoiXUTfGC H6v8zeTSqsiyFaCP4nej6y wDu3a1vunaCmOMGfGRSzmX YOQAKoK4SebVpnQy0ljMq1 bYtgHducHNN8Gmy2RY7qow 54gsy9wZafMZQjttrnGzF7 HJqaFRPqukykXFw3QMbmHP JnbDcyMFxtYXJncjcyMFxt YXJndDcyMFxtYXJnYjcyMF bqRLXtUVC2ZZgtz265ZFT4 HMaqn9fop1ovyKAhDop5WP SkMqXvFwygKBlfj5Ikw7vh BIPnta2yKBZ4rMDeaUozv9 A2bMHzKZMrcWCdwtZhQZPl WkX8OMpiDJ8mvq97AXPwHD G3no8dxDMkmDeopyLrsWLr DZjbZ1AvCOMbu530KCOrV0 YoOMIzi5R1laJvImPcWBCu mBJ5ooQ4DLMgFQe6wSKoyk J2oaYjrYMzW8kecI21BsRo iQCrZ3BsrX57LtYqaHOyT7 IwiW94JmEsqHNiG3EztL25 LhAfsIBaTOLvxROiOv8jgU SdcWXpo0YwfNIbJXotS51e w274KFGeliGlQ2qrzSAxpt fbkSKzbfqsOMvmgzX7XAVt XHBsYWluXGYwXGZzMjBcbG FuZzEwMzNcaGljaFxmMFxk IpUpCKFkDLjbO5btYwYoLm PiQPXTeETboM6kzzFFDUai IADxQ0CannKfBMphJNSlbX B0oOMqVVwgPoGlHPNhk4m2 mXC0kTUxrPA5zFLcfKadSR 3anITmOR6bUB6jKNcfFPnh vjPiv9FpZF33gIKqmxKpkl QgZGVzaWduYXRlZCBhcyAi z77roYU3uPErfGHgEX07fW XsIscfO84hw1miiNGiq8Vv n6cboYSwlBGvkZ86RWGrdq GxYlFxW66aooMfAO8qQDV0 cmluZyAwLjcgeCAwLjMgeC PlRpMpC25nTJKdYOLwfLHz eP2ygpElwlRpsNHmxZG5IV DgYO43oONjzNlzvI82sbPE CKQargHmeY67bzFtAHFcnF Eds6e6sIcgof4kqVSmYPFz yrLUhSRbxI0mjsTUMOfyKX FiC6OkqzXwHDunZXFgnSZ8 pULcAUriSnOqQFUuz0b9lX K2fKNwgXN1mJXzqEynPJ2e zZThWT3mUU9hQPvrEKozmu Mtb5JzCB74gTMnqzMzlpLm ZGVzaWduYXRlZCBhcyAibW O5VCVkloGvaTAnYUC4Ydvc B88zd1iloYMkp0BrHg98nz GlVGZcKpVky70hxArzm9Um EZDmXFHvh72gNUNcJTwxRS 45ejJfNZKwvNFkvgsxQe1j CAddZH77ULapDW07GRRpYV jyMVCkV7UeM6H1UX1fbPzt IHNwZWNpbWVuIGlzIGVudG hyGKr6QSotvVHwouxtIMoc czIwXGxhbmcxMDMzXGhpY2 xfTwJqOXZiyJxtWGkje6Up RKIuLHEbRhHvXmKcDI4zCS iayX5jYTKaBWydm62kmDDp t38nJXHgBAccQYJdPSOgDq BcbGFuZzEwMzNcaGljaFxm DTsfCmAbDXRmQShpS8dlUk BcZnMyMCAgTUcvZXdccGFy fQ== MICROSCOPIC DESCRIPTION a9tedCEsYTQqyABjXwJvVM (test code = 3371) BtUXDcc8vpJMFnlCAcAnJq MzNcZnRuYmpcdWMxXGRlZm Mmu8xom545nCKuh3krLKMf SgY1kPZpOEKveJNjA778r4 ksh5jtrjRzsLB6KAZrARE4 CYeodbSkmsJ4FEctfKHiXd F0SBzdlcUaJHyqebLavbEy Mdl4JWAwI636IMU5cJtbv9 gdWMA8HEZkWBCtNoTmPx3i jOXqC502DWGaCEYEXWByyV i1SZFufcKbsyHbqNKGh161 T711l6xrNHQqjhKhpTuNfm bta6mdB693ABWfiHCntnHz JnHpVSTqhEWzvYQ1GKBtUU 4zcpfiUkElPT2chbcnUmLm AK7xcpn1IjFvWL9wanauXf KgYEwzUZVrucyfDZTbj7Yj mbzpHX4zF1Nyj2A5gB4bzV VjWQSxyTDaZwPmFKZcvk0p hHRzBDhuo9OdMCH1caW7rU GpdEGiFYAwZJ54Iidke2Ba XgpzSLU3VKEfstUzl1Kcr5 ioXpNxqmBeV5egQ1YsPXOl FZIhWCGnTkXbohJpk0Xin5 ItfVWaeGz0k0vpDAYpBQAm bGdpv2umTMX8BONiC9Q6eR Yzj6obJStgGCIvcQB4ozil FDxwYSHgwxN1artiKYpdVZ LnyYT8hlhmVCmmOQAhXfC2 fxgaSMdcPZMuCHC4ZCycx6 79UHR3BBiqRjkkSJvyVTHv bmNvbnRccGduZGVjXHBsYW luXHBsYWluXGYwXGZzMjRc lGrsnGuqcM7uFwSfVlJlMV orHC1qMPNoF9preANbNXWc LQQbO6mdUoLltH1rwYamTZ pcfrCnHQNuLj7qHHWuOy9s bWVkLlxwYXJ9 Gross assessment was [facility] performed at ([facility], Department = 2777) of Pathology, [address] [place] [address], Technical component was [facility] performed at ([facility], = 2778) Department of Pathology, [address] [place] [address], Professional component [facility] was performed at ([facility], Department code = 2779) of Pathology, [address] [place] [address], [facility] CenterT[facility] [id number] 10:21:00Surgical Pathology Report Case: [id number] Authorizing Provider: Tala Snatacruz DPM Collected: 12/30/2019 01:38 PM Ordering Location: [address] Med/Surg Received: 12/31/2019 06:52 AM Pathologist: [...] TISSUE FORMATION Signing Pathologist Direct Phone Line: [phone] signed by Jovita Griffith MD on 01/04/2020 at 10:21 AMMG/[id number] t1Mqdxaswiogpaz of left 5th metatarsal, ulcer of bilateral [...] entirely B1 and into decal solution. MG/Veronica-B. Performed.[facility], Department of Pathology, [address] [place] [address], [facility], Department of Pathology, [address] [place] [address], [facility], [facility] of [facility]ology, [address] [place] [address], JYTRAXPNT [id number] 10:47:00 Test Item Value Reference Interpretation Comments [...] negative Staphylococcus SURGICALLY OBTAINED CULTURE + GRAM [id number] 08:31:00 Test Item Value Reference Range Interpretation Comments CULTURE (BEAKER) (test code No growth = 1095) GRAM STAIN RESULT (BEAKER) <1+ WBCs (test code = 1123) GRAM STAIN RESULT (BEAKER) No organisms seen (test code = 76306) SURGICALLY OBTAINED CULTURE + GRAM [id number] 08:19:00 Test Item Value Reference Interpretation Comments Range CULTURE (BEAKER) STENOTROPHOMONAS A 2+ Sten otrophomonas (test code = 1095) MALTOPHILIA maltophil ia Levofloxacin (test S code = 22) Trimethoprim + S Sulfamethoxazole (test code = 47) GRAM STAIN RESULT <1+ WBCs (BEAKER) (test code = 1123) GRAM STAIN RESULT No organisms seen (BEAKER) (test code = 387255) POC-Glucose [id number] 06:47:00 Test Item Value Reference Range Interpretation Comments POC-Glucose Meter (test 102 mg/dL 70-110 : TE STED AT [facility] code = 1538) [address] [place] [address]: Sales Representative [employer]/Techni artemio ID = [id number] for Damian, Anne Lab Interpretation (test Normal code = 87313-8) [facility]-Glucose [id number] 06:47:00 Test Item Value Reference Range Interpretation Comments POC-Glucose Meter (test 102 mg/dL 70-110 : TE STED AT [facility] code = 1538) [address] [place] [address]: Sales Representative [employer]/Techni artemio ID = [id number] for Brown, Anne Lab Interpretation (test Normal code = 10437-2) [facility]-GLUCOSE [id number] 06:47:00 Test Item Value Reference Range Interpretation Comments POC-GLUCOSE METER 102 mg/dL 70-110 : TESTED A T [facility] 1317 (BEAKER) (test code [facility], = 1538) [place] [address]: Sales Representative [employer]/Techni artemio ID = [id number] for Brow geovanna, Anne Comprehensive metabolic [id number] 06:34:00 Test Item Value Reference Range Interpretation Comments Protein, Total (test 6.1 See_Comment [Autom ated code = 2885-2) message] The system which generated this result transmit merna reference range : 6.0 - 8.5 gm/dL . The reference range was not u sed to interpret th is result as normal/abnormal . Albumin (test code = 2.3 g/dL 3.5-5 L 86367-5) Alkaline Phosphatase 81 U/L 30-115 (test code = 6768-6) Total Bilirubin (test 0.4 mg/dL 0.1-1.2 code = 1974-) Sodium (test code = 137 meq/L 011-163 9959-2) Potassium (test code 3.7 meq/L 3.6-5.5 = 2823-3) Chloride (test code = 100 meq/L 98-106 2075-0) CO2 (test code = 28 meq/L 20-29 2027-9) BUN (test code = 14 mg/dL 10-26 3094-0) Creatinine (test code 2.31 mg/dL 0.5-1.2 H = 2160-0) Glucose (test code = 100 mg/dL 70-110 2345-7) Calcium (test code = 7.5 mg/dL 8.5-10.5 L 25412-1) AST (test code = 15 U/L 5-40 1920-8) ALT (test code = 6 U/L 5-50 1742-6) EGFR (test code = 21 mL/min/1.73 sq m [facility] [place] [address]-2) NOT ACCURATE CREATININE CLEARANCE IN PREDICTING GLOMERULAR FILTRATION RATE . ESTIMATED GFR I S NOT APPLICABLE FOR DIALYSIS PATIEN TSAlfred ZIA (test code = ZIA) [employer] ID - ADMIN Lab Interpretation Abnormal (test code = 81994-9) [facility] CenterComprehensive metabolic [id number] 06:34:00 Test Item Value Reference Range Interpretation Comments Protein, Total (test 6.1 See_Comment [Autom ated code = 2885-2) message] The system which generated this result transmit merna reference range : 6.0 - 8.5 gm/dL . The reference range was not u sed to interpret th is result as normal/abnormal . Albumin (test code = 2.3 g/dL 3.5-5 L 02465-9) Alkaline Phosphatase 81 U/L 30-115 (test code = 6768-6) Total Bilirubin (test 0.4 mg/dL 0.1-1.2 code = 1974-05) Sodium (test code = 137 meq/L 661-697 7597-2) Potassium (test code 3.7 meq/L 3.6-5.5 = 2823-3) Chloride (test code = 100 meq/L 98-106 2075-0) CO2 (test code = 28 meq/L -29 8-9) BUN (test code = 14 mg/dL - 3094-0) Creatinine (test code 2.31 mg/dL 0.5-1.2 H = 2160-0) Glucose (test code = 100 mg/dL 70-110 2345-7) Calcium (test code = 7.5 mg/dL 8.5-10.5 L 97601-5) AST (test code = 15 U/L 5-40 1920-8) ALT (test code = 6 U/L 5-50 1742-6) EGFR (test code = 21 mL/min/1.73 [place] [address]-7) NOT ACCURATE CREATININE CLEARANCE IN PREDICTING GLOMERULAR FILTRATION RATE . ESTIMATED GFR I S NOT APPLICABLE FOR DIALYSIS PATIEN TS. LIZARRAGA (test code = ZIA) [employer] ID - ADMIN Lab Interpretation Abnormal (test code = 96313-9) [facility] CenterCOMPREHENSIVE METABOLIC [id number] 06:34:00 Test Item Value Reference Range Interpretation [...] S NOT APPLICABLE FOR DIALYSIS PATIEN TS. [employer] Representative [employer] ID - ADMINCBC with platelet count + automated [id number] 06:06:00 Test Item Value Reference Range Interpretation Comments WBC (test code = 6690-2) 5.7 See_Comment [A utomated message] The system [employer] generated this result transmitted ref erence range: 4.0 - 10 .0 K/L. The refe rence range was not u sed to interpret this result as normal/abnor mal. RBC (test code = 789-8) 2.41 See_Comment L [Au tomated message] The system [employer] generated this result transmitted ref erence range: 4.00 - 5 .00 M/L. The refe rence range was not u sed to interpret this result as normal/abnor mal. MCHC (test code = 786-4) 30.8 See_Comment L [A utomated message] The system [employer] generated this result transmitted ref erence range: [...] L [Aut omated message] 777-3) The system [employer] generated this result transmitted ref erence range: 150 - 43 0 K/CU MM. The referen ce range was not u sed to interpret this result as normal/abnor mal. MPV (test code = 10.5 fL 6-11.5 75071-3) nRBC (test code = 413) 0 See_Comment [Aut omated message] The system [employer] generated this result transmitted ref erence range: [...] See_Comment [Aut omated message] 670) The system [employer] generated this result transmitted ref erence range: 1.80 - 8 .00 K/L. The refe rence range was not u sed to interpret this result as normal/abnor mal. # Lymphs (test code = 1.66 See_Comment [Auto mated message] 414) The system [employer] generated this result transmitted ref erence range: 1.48 - 4 .50 K/L. The refe rence range was not u sed to interpret this result as normal/abnor mal. # Monos (test code = 0.28 See_Comment [Autom ated message] 415) The system [employer] generated this result transmitted ref erence range: 0.00 - 1 .30 K/L. The refe rence range was not u sed to interpret this result as normal/abnor mal. # Eos (test code = 416) 0.12 See_Comment [Au tomated message] The system [employer] generated this result transmitted ref erence range: 0.00 - 0 .50 K/L. The refe rence range was not u sed to interpret this result as normal/abnor mal. # Baso (test code = 417) 0.07 See_Comment [A utomated message] The system [employer] generated this result transmitted ref erence range: 0.00 - 0 .20 K/L. The refe rence range was not u sed to interpret this result as normal/abnor mal. Immature 0 % 0-0 Granulocytes-Relative (test code = 2801) Lab Interpretation (test Abnormal code = 31170-9) [facility] with platelet count + automated [id number] 06:06:00 Test Item Value Reference Range Interpretation Comments WBC (test code = 6690-2) 5.7 See_Comment [A utomated message] The system [employer] generated this result transmitted ref erence range: 4.0 - 10 .0 K/L. The refe rence range was not u sed to interpret this result as normal/abnor mal. RBC (test code = 789-8) 2.41 See_Comment L [Au tomated message] The system [employer] generated this result transmitted ref erence range: 4.00 - 5 .00 M/L. The refe rence range was not u sed to interpret this result as normal/abnor mal. MCHC (test code = 786-4) 30.8 See_Comment L [A utomated message] The system [employer] generated this result transmitted ref erence range: [...] L [Aut omated message] 777-3) The system [employer] generated this result transmitted ref erence range: 150 - 43 0 K/CU MM. The referen ce range was not u sed to interpret this result as normal/abnor mal. MPV (test code = 10.5 fL 6-11.5 31567-6) nRBC (test code = 413) 0 See_Comment [Aut omated message] The system [employer] generated this result transmitted ref erence range: [...] See_Comment [Aut omated message] 670) The system [employer] generated this result transmitted ref erence range: 1.80 - 8 .00 K/L. The refe rence range was not u sed to interpret this result as normal/abnor mal. # Lymphs (test code = 1.66 See_Comment [Auto mated message] 414) The system [employer] generated this result transmitted ref erence range: 1.48 - 4 .50 K/L. The refe rence range was not u sed to interpret this result as normal/abnor mal. # Monos (test code = 0.28 See_Comment [Autom ated message] 415) The system [employer] generated this result transmitted ref erence range: 0.00 - 1 .30 K/L. The refe rence range was not u sed to interpret this result as normal/abnor mal. # Eos (test code = 416) 0.12 See_Comment [Au tomated message] The system [employer] generated this result transmitted ref erence range: 0.00 - 0 .50 K/L. The refe rence range was not u sed to interpret this result as normal/abnor mal. # Baso (test code = 417) 0.07 See_Comment [A utomated message] The system [employer] generated this result transmitted ref erence range: 0.00 - 0 .20 K/L. The refe rence range was not u sed to interpret this result as normal/abnor mal. Immature 0 % 0-0 Granulocytes-Relative (test code = 2801) Lab Interpretation (test Abnormal code = 87660-2) [facility] W/PLT COUNT & AUTO [id number] 06:06:00 Test Item Value Reference Range Interpretation [...] PERCENT (BEAKER) (test code = 2801) POCT-GLUCOSE [id number] 21:02:00 Test Item Value Reference Range Interpretation Comments POC-GLUCOSE METER 167 mg/dL 70-110 H : TESTED A T [facility] [address] (BEAKER) (test code [address], = 1538) [facility] [address]: Sales Representative [employer]/Techni artemio ID = [id number] for Anne Busby POCT-GLUCOSE [id number] 18:12:00 Test Item Value Reference Range Interpretation Comments POC-GLUCOSE METER 121 mg/dL 70-110 H : TESTED A T [facility] [address] (BEAKER) (test code [address], = 1538) [facility] [address]: Sales Representative [employer]/Techni artemio ID = [id number] for Cortney Cohen POCT-GLUCOSE [id number] 11:54:00 Test Item Value Reference Range Interpretation Comments POC-GLUCOSE METER 117 mg/dL 70-110 H : TESTED A T [facility] [address] (BEAKER) (test code [address], = 1538) [facility] [address]: Sales Representative [employer]/Techni artemio ID = [id number] for Cortney Cohen COMPREHENSIVE METABOLIC [id number] 06:47:00 Test Item Value Reference Range Interpretation [...] S NOT APPLICABLE FOR DIALYSIS PATIEN TS. Sales Representative [employer] ID - [id number] 06:42:00 Test Item Value Reference Range Interpretation Comments Magnesium (test code = 1.6 mg/dL 1.5-3 48679-9) ZIA (test code = ZIA) [employer] Representative [employer] ID - ADMIN Lab Interpretation (test Normal code = 13923-2) [facility] CenterMagnesium2020-10-02 06:42:00 Test Item Value Reference Range Interpretation Comments Magnesium (test code = 1.6 mg/dL 1.5-3 57655-9) ZIA (test code = ZIA) Sales Representative [employer] ID - ADMIN Lab Interpretation (test Normal code = 61309-4) [facility] CenterPOCT[facility]GLU[facility] [id number] 06:42:00 Test Item Value Reference Range Interpretation Comments POC-GLUCOSE METER 101 mg/dL 70-110 : TESTED A T [facility] [address] (BEAKER) (test code [address] [facility] [address], = 1538) [facility] [place] [address]: Sales Representative [employer]/Techni artemio ID = [id number] for Anne Busby [id number] 06:42:00 Test Item Value Reference Range Interpretation Comments MAGNESIUM (BEAKER) (test code = 1.6 mg/dL 1.5-3.0 627) [employer] ID - ADMINCBC W/PLT COUNT & AUTO [id number] 06:37:00 Test Item Value Reference Range Interpretation [...] PERCENT (BEAKER) (test code = 2801) POCT-GLUCOSE [id number] 20:24:00 Test Item Value Reference Range Interpretation Comments POC-GLUCOSE METER 155 mg/dL 70-110 H : TESTED A T [facility] 1317 (BEAKER) (test code [address], = 1538) [facility] [address]: Sales Representative [employer]/Techni artemio ID = [id number] for Anne Busby POCT-GLUCOSE [id number] 16:39:00 Test Item Value Reference Range Interpretation Comments POC-GLUCOSE METER 164 mg/dL 70-110 H : Notified RN/MD: TESTED (ROBERT) (test code AT [facility] 13[address] [facility] = 1538) [place] [address]: Sales Representative [employer]/Techni artemio ID = [id number] for Alondra Kelley SARS-CoV2/RT-PCR (Asymptomatic ONLY)2019-12-30 15:57:00 Test Item Value Reference Range Interpretation Comments SARS-COV2/RT-PCR Negative Not Detected, (test code = Negative, See 06080-8) external report for linked test SARS-COV-2 [facility] JANET PERFORMING LAB (test code = 00965-2) ZIA (test code = Negative result for [...] of the Act. Fact Sheet for Healthcare Providers:https://www.[employer].com/sites/default/f loco/product/documents/F act_Sheet_HC_Providers_L qdq_UHOT-MvW-8.pdf Fact Sheet for Healthcare Patients:https://www.[employer].com/sites/default/fi les/product/documents/Fa ct_Sheet_Patients_Janet_S ARS-CoV-2.pdf Performing Laboratory:[facility] [place] [address] [facility]/RT-PCR (Asymptomatic ONLY)2019-12-30 15:57:00 Test Item Value Reference Range Interpretation Comments SARS-COV2/RT-PCR Negative Not Detected, (test code = Negative, See 69277-5) external report for linked test SARS-COV-2 [facility] JANET PERFORMING LAB (test code = 09361-9) ZIA (test code = Negative result for [...] of the Act. Fact Sheet for Healthcare Providers:https://www.[employer]/sites/default/f loco/product/documents/F act_Sheet_HC_Providers_L rye_UWHA-PsZ-3.pdf Fact Sheet for Healthcare Patients:https://www.[employer]/sites/default/fi les/product/documents/Fa ct_Sheet_Patients_Lyra_S ARS-CoV-2.pdf Performing Laboratory:[facility] [place] [address] [facility] campusARS-COV2/RT-PCR ([facility])2019-12-30 15:57:00 Test Item Value Reference Range Interpretation Comments SARS-COV2/RT-PCR (test Negative Not Detected, Negative, code = 6407531) See external report for linked test SARS-COV-2 PERFORMING LAB [facility] JANET (test code = 3987334) Negative result for this test determines that [...] 564(g) of the Act.Fact Sheet for Healthcare Providers:https://www.[employer]/sites/default/files/product/documents/Fact_Shee r_CY_Tdonofngx_Eijo_CXTC-SrF-1.pdfFact Sheet for Healthcare Patients:https://www.[employer]/sites/default/files/product/ documents/Hgei_Ngbhd_Jodbuccz_Xdap_ZFYY-RqB-5.pdfPerforming Laboratory:[facility], [place] [address]SKOC-UCPQTCS METER 2019-12-30 11:50:00 Test Item Value Reference Range Interpretation Comments POC-GLUCOSE METER 82 mg/dL 70-110 : Notified RN/MD: TESTED (BEAKER) (test code = AT [facility] [address]) [place] [address]: Sales Representative [employer]/Techni artemio ID = [id number] for Alondra Kelley WOUND CULTURE + GRAM [id number] 10:45:00 Test Item Value Reference Interpretation Comments [...] gram negative (BEAKER) (test code rods = 888927) POCT-GLUCOSE [id number] 05:50:00 Test Item Value Reference Range Interpretation Comments POC-GLUCOSE METER 103 mg/dL 70-110 : Notified RN/MD: TESTED (BEAKER) [facility] [address] = 1538) [place] [address]: Sales Representative [employer]/Techni artemio ID = [id number] for Zonia Healy COMPREHENSIVE METABOLIC [id number] 05:44:00 Test Item Value Reference Range Interpretation [...] S NOT APPLICABLE FOR DIALYSIS PATIEN TS. Sales Representative [employer] ID - ADMINCBC W/PLT COUNT & AUTO [id number] 05:29:00 Test Item Value Reference Range Interpretation [...] PERCENT (BEAKER) (test code = 2801) POCT-GLUCOSE [id number] 21:21:00 Test Item Value Reference Range Interpretation Comments POC-GLUCOSE METER 185 mg/dL 70-110 H : Notified RN/MD: TESTED (BEAKER) (test code AT [address] = 1538) [facility] [address]: Sales Representative [employer]/Techni artemio ID = [id number] for Niraj Zonia POCT-GLUCOSE [id number] 11:21:00 Test Item Value Reference Range Interpretation Comments POC-GLUCOSE METER 143 mg/dL 70-110 H : Notified RN/MD: TESTED (BEAKER) (test code AT [facility] [address] = 1538) [place] [address]: Sales Representative [employer]/Techni artemio ID = [id number] for Alondra Kelley COMPREHENSIVE METABOLIC [id number] 06:27:00 Test Item Value Reference Range Interpretation [...] S NOT APPLICABLE FOR DIALYSIS PATIEN TS. Sales Representative [employer] ID - ADMINPOCT-GLUCOSE [id number] 06:21:00 Test Item Value Reference Range Interpretation Comments POC-GLUCOSE METER 73 mg/dL 70-110 : Notified RN/MD: TESTED (BEAKER) (test code = AT [facility] [address]) [place] [address]: Sales Representative [employer]/Techni artemio ID = [id number] for Zonia Healy CBC W/PLT COUNT & AUTO [id number] 06:00:00 Test Item Value Reference Range Interpretation [...] PERCENT (BEAKER) (test code = 2801) POCT-GLUCOSE [id number] 20:48:00 Test Item Value Reference Range Interpretation Comments POC-GLUCOSE METER 84 mg/dL 70-110 : Notified RN/MD: [facility] (test code = AT [facility] L [address]) [place] [address]: Sales Representative [employer]/Techni artemio ID = [id number] for Zonia Healy POCT-GLUCOSE [id number] 17:51:00 Test Item Value Reference Range Interpretation Comments POC-GLUCOSE METER 59 mg/dL 70-110 L : TESTED A T [facility] (test code = [address] [facility], 153) [place] [address]: Sales Representative [employer]/Techni artemio ID = [id number] for Christina r, Berta POCT-GLUCOSE [id number] 13:28:00 Test Item Value Reference Range Interpretation Comments POC-GLUCOSE METER 67 mg/dL 70-110 L : TESTED A T [facility] (BEAKER) (test code = [facility] [facility], 153) [place] [address]: Sales Representative [employer]/Techni artemio ID = [id number] for Christina r, Berta POCT-GLUCOSE [id number] 06:04:00 Test Item Value Reference Range Interpretation Comments POC-GLUCOSE METER 94 mg/dL 70-110 : TESTED A T [facility] (BEAKER) (test code = [facility] [facility], 153) [place] [address]: Sales Representative [employer]/Techni artemio ID = [id number] for Anahi Sherman COMPREHENSIVE METABOLIC [id number] 05:35:00 Test Item Value Reference Range Interpretation [...] S NOT APPLICABLE FOR DIALYSIS PATIEN TS. Sales Representative [employer] ID - ADMINCBC W/PLT COUNT & AUTO [id number] 04:56:00 Test Item Value Reference Range Interpretation [...] PERCENT (BEAKER) (test code = 2801) POCT-GLUCOSE [id number] 20:43:00 Test Item Value Reference Range Interpretation Comments POC-GLUCOSE METER 137 mg/dL 70-110 H : TESTED A T [facility] [address] (BEAKER) (test code [address], = 1538) [facility] [address]: Sales Representative [employer]/Techni artemio ID = [id number] for Math sheyla, Anahi MR, EXTREMITY, LOWER, WITHOUT CONTRAST, [id number] 16:55:00MRI LEFT FOOT.Unlisted Reason for Exam - [...] MDReport Verified Date/Time: 12/27/2019 16:55:07 Reading Location: [facility] Radiology Reading Room MR lower extremity without IV contrast left [id number] 16:55:00Interface, External Ris In - 12/27/2019 4:57 [...] MDReport Verified Date/Time: 12/27/2019 16:55:07 Reading Location: [facility] Radiology Reading Room Electronically signed by: Adrienne CHU 12/27/2019 04:55 [facility] [id number] 16:55:00Interface, External Ris In - 12/27/2019 4:57 [...] Ring Verified Date/Time: 12/27/2019 16:55:07 Reading Location: [facility] Radiology Reading Room Electronically signed by: Adrienne CHU 12/27/2019 04:55 [facility] [id number] 14:19:00 Test Item Value Reference Range Interpretation Comments POC-GLUCOSE METER 232 mg/dL 70-110 H : TESTED A T [facility] 1317 (BEDANIELA) (test code DUVALL POI NT [address], = 1538) [facility] 77 478: Sales Representative [employer]/Techni artemio ID = [id number] for Berta Servin CT, CTA AAA, W/ GÓMEZ.EXT.[id number] 11:38:00Bilateral lower extremities Addendum BeginsREPORT STATUS:A I agree with the nonvascular findings with exceptions and emphasis as below:*Moderate right and small left pleural effusions are partially visualized.*Large volume ascites.*Diffuse anasarca*The reflux of contrast into the hepatic veins is concerning for volume overload. Signed: Molly Linares MDReport Verified Date/Time: 12/27/2019 11:38:28 Reading Location: [facility] Diagnostic Imaging Reading Room - [place] [address] angiography of the abdominal [...] identified. However, significant calcification identified of the ambler left SFA, for example at image 516, [...] the right popliteal artery is patent, with kide-nb-zjtlaxze diffuse calcification identified with no obstructive lesion [...] However, in the distal left SFA, the ambler artery substantial calcification identified and the stent [...] atherosclerosis identified. 4. In the right, the ambler right SFA is not filled by contrast [...] dictated regarding the non-vascular findings by the Table Worker Packager Radiologist. Signed: Shlomo Dockery Verified Date/Time: 12/27/2019 07:59:51 Reading Location: [place] [address] [address] Reading Room Protein electrophoresis, serum 2019-12-27 [...] (test 6.3 See_Comment [Autom ated code = 9020) message] The system which generated this result transmitted reference range : 6.0 - 8.3 gm/dL . The reference range was not used to interpr et this result as normal/abnormal . ZIA (test code = Sales Representative [employer] ID - ZIA) LEONIE Jay Lab Interpretation Abnormal (test code = 78316-7) [facility] CenterProtein electrophoresis, [id number] 09:29:00 Test Item Value Reference Range Interpretation [...] (test 6.3 See_Comment [Autom ated code = 0620) message] The system which generated this result transmitted reference range : 6.0 - 8.3 gm/dL . The reference range was not used to interpr et this result as normal/abnormal . ZIA (test code = Sales Representative [employer] ID - ZIA) LEONIE Jay Lab Interpretation Abnormal (test code = 60194-4) [facility] CenterPROTEIN ELECTROPHORESIS, [id number] 09:29:00 Test Item Value Reference Range Interpretation [...] chronic inflammatory response. No monoclonal bands detected. [id number] Rocio Galindo MD (BEAKER) (test code = (electronic signature) 2616) PROTEIN TOTAL SERUM, 6.3 gm/dL 6.0-8.3 SPEP (ROBERT) (test code = 2660) Sales Representative [employer] ID - LEONIE CATHERINETA AAA and [id number] 07:59:00Interface, External Ris In - 12/27/2019 11:40 AM CDTAddendum BeginsREPORT STATUS:A I agree with the nonvascular findings with exceptions and emphasis as below:*Moderate right andsmall left pleural effusions are partially visualized.*Large volume ascites.*Diffuse anasarca*The reflux of contrast into the hepatic veins is concerning for volume overload. Signed: Molly Linares MDReport Verified Date/Time: 12/27/2019 11:38:28 Reading Location: [facility] Diagnostic Imaging Reading Room - [address] REPORT CT angiography of the [...] identified. However, significant calcification identified of the ambler left SFA, for example at image 516, [...] the right popliteal artery is patent, with lkbg-rf-dnuvflkt diffuse calcification identified with no obstructive lesion [...] However, in the distal left SFA, the ambler artery substantial calcification identified and the stent [...] atherosclerosis identified. 4. In the right, the ambler right SFA is not filled by contrast [...] dictated regarding the non-vascular findings by the Table Worker Packager Radiologist. Signed: Shlomo Dockeryort Verified Date/Time: 12/27/2019 07:59:51 Reading Location: [place] [address] [address] Reading Room [facility] AAA and [id number] 07:59:00Interface, External Ris In - 12/27/2019 11:40 AM CDTAddendum BeginsREPORT STATUS:A I agree with the nonvascular findings with exceptions and emphasis as below:*Moderate right andsmall left pleural effusions are partially visualized.*Large volume ascites.*Diffuse anasarca*The reflux of contrast into the hepatic veins is concerning for volume overload. Signed: Molly Linares Verified Date/Time: 12/27/2019 11:38:28 Reading Location: [facility] Diagnostic Imaging Reading Room - [place] [address] [address] REPORT CT angiography of the [...] identified. However, significant calcification identified of the ambler left SFA, for example at image 516, [...] the right popliteal artery is patent, with otzl-qn-myaezwsa diffuse calcification identified with no obstructive lesion [...] However, in the distal left SFA, the ambler artery substantial calcification identified and the stent [...] atherosclerosis identified. 4. In the right, the ambler right SFA is not filled by contrast [...] dictated regarding the non-vascular findings by the Table Worker Packager Radiologist. Signed: Shlomo Dockery MDReport Verified Date/Time: 12/27/2019 07:59:51 Reading Location: [place] [address] [address] Reading Room [facility] HospitalPOCT-GLUCOSE [id number] 06:56:00 Test Item Value Reference Range Interpretation Comments POC-GLUCOSE METER 39 mg/dL 70-110 LL : Notified RN/MD: TESTED (BEAKER) (test code = AT [facility] L [address]) [place] [facility] [address]: Sales Representative [employer]/Techni artemio ID = [id number] for Anahi Sherman COMPREHENSIVE METABOLIC [id number] 06:15:00 Test Item Value Reference Range Interpretation [...] S NOT APPLICABLE FOR DIALYSIS PATIEN TS. Sales Representative [employer] ID - ADMINPOCT-GLUCOSE [id number] 06:01:00 Test Item Value Reference Range Interpretation Comments POC-GLUCOSE METER 55 mg/dL 70-110 L : Notified RN/MD: TESTED (BEAKER) (test code = AT [address]) [address], [facility] [address]: Sales Representative [employer]/Techni artemio ID = [id number] for Anahi Sherman CBC W/PLT COUNT & AUTO [id number] 05:44:00 Test Item Value Reference Range Interpretation [...] PERCENT (BEAKER) (test code = 2801) POCT-GLUCOSE [id number] 21:03:00 Test Item Value Reference Range Interpretation Comments POC-GLUCOSE METER 278 mg/dL 70-110 H : Notified RN/MD: TESTED ([facility]) (test code AT [facility] [address] = [address]38) [place] [address]: Sales Representative [employer]/Techni artemio ID = [id number] for Anahi Sherman POCT-GLUCOSE [id number] 16:53:00 Test Item Value Reference Range Interpretation Comments POC-GLUCOSE METER 70 mg/dL 70-110 : [facility] (test code = [address] [facility], 153) [place] [address]: Sales Representative [employer]/Techni artemio ID = [id number] for Nalini Jean Baptiste POCT-GLUCOSE [id number] 12:11:00 Test Item Value Reference Range Interpretation Comments POC-GLUCOSE METER 97 mg/dL 70-110 : [facility] (test code = [address] [facility], 153) [place] [address]: Sales Representative [employer]/Techni artemio ID = [id number] for Nalini Jean Baptiste POCT-GLUCOSE [id number] 06:21:00 Test Item Value Reference Range Interpretation Comments POC-GLUCOSE METER 71 mg/dL 70-110 : [facility] (test code = [address] [facility], 1538) [place] [address]: Sales Representative [employer]/Techni artemio ID = [id number] for Holly Alamo COMPREHENSIVE METABOLIC [id number] 05:50:00 Test Item Value Reference Range Interpretation [...] S NOT APPLICABLE FOR DIALYSIS PATIEN TS. Sales Representative [employer] ID - ADMINCBC W/PLT COUNT & AUTO [id number] 05:17:00 Test Item Value Reference Range Interpretation [...] (BEAKER) (test code = 2801) Prepare Leuko-Red [id number] 23:54:00 Test Item Value Reference Range Interpretation Comments CROSSMATCH (test code = 2264) COMPATIBLE Unit ABO (test code = O Pos 3385795) UNIT NUMBER (test code = [id number] 934-0) Status (test code = 0195219) [facility] Blood Bank Product (test code RED BLOOD CELLS = 2263) PRODUCT CODE (test code = G9789H84 933-2) [facility] CenterPrepare Leuko-Red [id number] 23:54:00 Test Item Value Reference Range Interpretation Comments CROSSMATCH (test code = 2264) COMPATIBLE Unit ABO (test code = O Pos 1312589) UNIT NUMBER (test code = [id number] 934-0) Status (test code = 5628704) [facility] Blood Bank Product (test code RED BLOOD CELLS = 2263) PRODUCT CODE (test code = V8332C33 933-2) [facility] CenterPOCT-GLUCOSE [id number] 21:03:00 Test Item Value Reference Range Interpretation Comments POC-GLUCOSE METER 87 mg/dL 70-110 : TESTED A T [address] (BEAKER) (test code = [address], [address]) [place] [address]: Sales Representative [employer]/Techni artemio ID = [id number] for Nwad iufu, Holly POCT-GLUCOSE [id number] 17:12:00 Test Item Value Reference Range Interpretation Comments POC-GLUCOSE METER 79 mg/dL 70-110 : TESTED A T [address] (BEAKER) (test code = [address], [address]) [place] [address]: Sales Representative [employer]/Techni artemio ID = [id number] for Nalini Jean Baptiste POCT-GLUCOSE [id number] 11:37:00 Test Item Value Reference Range Interpretation Comments POC-GLUCOSE METER 262 mg/dL 70-110 H : TESTED A T [address] (BEAKER) (test code [address], = 15[address]) [place] [address]: Sales Representative [employer]/Techni artemio ID = [id number] for Nalini Jean Baptiste COMPREHENSIVE METABOLIC [id number] 06:29:00 Test Item Value Reference Range Interpretation [...] S NOT APPLICABLE FOR DIALYSIS PATIEN TS. Sales Representative [employer] ID - ADMINCBC W/PLT COUNT & AUTO [id number] 06:12:00 Test Item Value Reference Range Interpretation [...] PERCENT (BEAKER) (test code = 2801) POCT-GLUCOSE [id number] 06:09:00 Test Item Value Reference Range Interpretation Comments POC-GLUCOSE METER 83 mg/dL 70-110 : Notified RN/MD: TESTED (BEAKER) (test code = AT [address]) [facility] [address]: Sales Representative [employer]/Techni artemio ID = [id number] for Anahi Sherman POCT-GLUCOSE [id number] 16:26:00 Test Item Value Reference Range Interpretation Comments POC-GLUCOSE METER 182 mg/dL 70-110 H : Notified RN/MD: TESTED (BEAKER) (test code AT [facility] [address] = 1538) [place] [address]: Sales Representative [employer]/Techni artemio ID = [id number] for Alondra Kelley, [id number] 09:17:00 Test Item Value Reference Range Interpretation Comments Rh Factor (test code = POS 2589) ABO Grouping (test code O PINK TOP 12/24/19 @ 0824 = 2588) [facility] CenterABORH, [id number] 09:17:00 Test Item Value Reference Range Interpretation Comments Rh Factor (test code = POS 2589) ABO Grouping (test code O PINK TOP 12/24/19 @ 0824 = 2588) [facility] CenterType and screen, [id number] 07:31:00 Test Item Value Reference Range Interpretation Comments ABO/RH AUTOMATED (BEAKER) (test O POSITIVE ECHO code = 2260) Ab Scrn (test code = 890-4) NEGATIVE ECHO [facility] CenterType and screen, [id number] 07:31:00 Test Item Value Reference Range Interpretation Comments ABO/RH AUTOMATED (BEAKER) (test O POSITIVE ECHO code = 2260) Ab Scrn (test code = 890-4) NEGATIVE ECHO [facility] CenterCOMPREHENSIVE METABOLIC [id number] 06:42:00 Test Item Value Reference Range Interpretation [...] S NOT APPLICABLE FOR DIALYSIS PATIEN TS. Sales Representative [employer] ID - ADMINPOCT-GLUCOSE [id number] 06:23:00 Test Item Value Reference Range Interpretation Comments POC-GLUCOSE METER 88 mg/dL 70-110 : TESTED A T [address] (BEAKER) (test code = [address], [address]) [facility] 77 [address]: Sales Representative [employer]/Techni artemio ID = [id number] for Anne Busby CBC W/PLT COUNT & AUTO [id number] 06:23:00 Test Item Value Reference Range Interpretation [...] PERCENT (BEAKER) (test code = 2801) POCT-GLUCOSE [id number] 21:38:00 Test Item Value Reference Range Interpretation Comments POC-GLUCOSE METER 126 mg/dL 70-110 H : TESTED A T [address] (BEAKER) (test code [address] [facility], = 1538) [facility] 77 [address]: Sales Representative [employer]/Techni artemio ID = [id number] for Ashley austin Anne POCT-GLUCOSE [id number] 16:54:00 Test Item Value Reference Range Interpretation Comments POC-GLUCOSE METER 89 mg/dL 70-110 : Notified RN/MD: TESTED (BEAKER) (test code = AT [address]) [facility] [address]: Sales Representative [employer]/Techni artemio ID = [id number] for Alondra Kelley MR, EXTREMITY, LOWER, JOINT, WITHOUT CONTRAST, [id number] 16:10:00Unlisted Reason for Exam - Click Yes [...] Jordanort Verified Date/Time: 12/23/2019 16:10:32 Reading Location: [facility] C013X Ortho Consult Reading Room MR lower extremity joint only without IV contrast left [id number] 16:10:00Interface, External Ris In - 12/23/2019 4:12 [...] Jordan Verified Date/Time: 12/23/2019 16:10:32 Reading Location: [facility] C013X Ortho Consult Reading Room [facility]MR [facility] joint only without IV contrast left side 2019-12-23 16:10:00Interface, External Ris In - 12/23/2019 4:12 [...] at the talonavicular joint. No marrow replacing p rocess or cortical erosion is identified. There is [...] Jordan Verified Date/Time: 12/23/2019 16:10:32 Reading Location: [facility] B1 C013X Ortho Consult Reading Room [facility] HospitalMR, BRAIN, WITHOUT [id number] 15:43:00Unlisted Reason for Exam - Click Yes and Enter Reason Below->NoFINAL REPORT MR, BRAIN, WITHOUT CONTRAST INDICATION: Headache, post traumaticTECHNIQUE: Multiplanar, multisequence MR imaging of the brain [...] Date/Time: 12/23/2019 15:43:24 MR brain without IV [id number] 15:43:00Interface, External Ris In - 12/23/2019 3:45 PM CDTFINAL REPORT MR, BRAIN, WITHOUT CONTRAST INDICATION: Headache, [...] Signed: Berta Muniz Verified Date/Time: 12/23/2019 15:43:24 [facility] HospitalMR brain without IV [id number] 15:43:00Interface, External Ris In - 12/23/2019 3:45 PM CDTFINAL REPORT MR, BRAIN, WITHOUT CONTRAST INDICATION: Headache, [...] Signed: Berta Muniz Verified Date/Time: 12/23/2019 15:43:24 [facility] ([facility]) 2019-12-23 14:16:00 Test Item Value Reference Range Interpretation Comments SARS-COV2/RT-PCR (test Negative Not Detected, Negative, code = 5967554) See external report for linked test SARS-COV-2 PERFORMING LAB [facility] (test code = 6623161) Negative result for this test determines that [...] 564(g) of the Act.Fact Sheet for Healthcare Providers:https://www.2U/sites/default/files/product/documents/Fact_Shee m_XI_Ndpwoedpr_Cskv_RZLY-RaB-9.pdfFact Sheet for Healthcare Patients:https://www.2U/sites/default/files/product/ documents/Bfzc_Pauib_Vljtbvtw_Veqx_JEOM-UgU-0.pdfPerforming Laboratory:[facility], [place] [address]Pssfn / lambda light chains, [id number] 12:25:00 Test Item Value Reference Interpretation Comments Range [place] Lt Chain,Free 474.4 mg/L 3.3-19.4 H (test code = 09187-6) Lambda Lt 225.6 mg/L 5.7-26.3 H Chain,Free (test code = 31623-3) [place]/Lambda,Free 2.1 0.26-1.65 H Free annabelle a/lambda (test [...] (test code = Performing Lab ZIA) EZ LOVEFiLM [facility] [address] [place] [address] Adonis Stein MD, PhD, CORI Lab Interpretation Abnormal (test code = 47402-0) [facility] CenterKappa / lambda light chains, [id number] 12:25:00 Test Item Value Reference Interpretation Comments Range [place] Lt Chain,Free 474.4 mg/L 3.3-19.4 H (test code = 78960-5) Lambda Lt 225.6 mg/L 5.7-26.3 H Chain,Free (test code = 19403-7) [place]/Lambda,Free 2.1 0.26-1.65 H Free annabelle a/lambda (test [...] (test code = Performing Lab ZIA) EZ LOVEFiLM [facility] [place] [address] [place] [address] Adonis Stein MD, PhD, CORI Lab Interpretation Abnormal (test code = 15497-0) [facility] CenterPOCT-GLUCOSE [id number] 11:27:00 Test Item Value Reference Range Interpretation Comments POC-GLUCOSE METER 189 mg/dL 70-110 H : Notified RN/: TESTED (BEAKER) (test code AT [place] [address] [address] = [address]38) [facility] [address]: Sales Representative [employer]/Techni artemio ID = [id number] for Alondra Kelley ARTERIAL DOPPLER LEGS, [id number] 11:22:00Reason for exam:->non healing ulcer , non [...] MDReport Verified Date/Time: 12/23/2019 11:22:31 Reading Location: [facility] Radiology Reading Room Arterial Doppler Legs [id number] 11:22:00 Interface, External Ris In - 12/23/2019 [...] severe peripheral arterial disease. Signed: Luis Alberto Monahanort Verified Date/Time: 12/23/2019 11:22:31 Reading Location: [facility] Radiology Reading Room [facility] HospitalArterial Doppler Legs [id number] 11:22:00Interface, External Ris In - 12/23/2019 11:24 AM [...] Monahan Verified Date/Time: 12/23/2019 11:22:31 Reading Location: [facility] Radiology Reading Room [facility] HospitalCOMPREHENSIVE METABOLIC PANEL 2019-12-23 04:44:00 Test Item Value Reference Range Interpretation [...] S NOT APPLICABLE FOR DIALYSIS PATIEN TS. Sales Representative [employer] ID - ADMINCBC W/PLT COUNT & AUTO [id number] 04:35:00 Test Item Value Reference Range Interpretation [...] H PERCENT (BEAKER) (test code = 2801) [id number] 04:29:00 Test Item Value Reference Range Interpretation Comments Ammonia (test code = 36 See_Comment [Autom ated 71894-6) message] The system which generated this result transmit merna reference range : 17 - 80 mol/L . The reference range was not u sed to interpret th is result as normal/abnormal . ZIA (test code = ZIA) Sales Representative [employer] ID - ADMIN Lab Interpretation Normal (test code = 52775-4) [facility] 04:29:00 Test Item Value Reference Range Interpretation Comments Ammonia (test code = 36 See_Comment [Autom ated 35370-2) message] The system which generated this result transmit merna reference range : 17 - 80 mol/L . The reference range was not u sed to interpret th is result as normal/abnormal . ZIA (test code = ZIA) Sales Representative [employer] ID - ADMIN Lab Interpretation Normal (test code = 90091-1) [facility] CenterAMMONIA2020-09-24 04:29:00 Test Item Value Reference Range Interpretation Comments AMMONIA (BEAKER) (test code = 348) 36 mol/L 17-80 Sales Representative [employer] ID - ADMINPOCT-GLUCOSE [id number] 20:45:00 Test Item Value Reference Range Interpretation Comments POC-GLUCOSE METER 95 mg/dL 70-110 : TESTED A T [facility] [address] (BEAKER) (test code = [address], [address]) [place] [address]: Sales Representative [employer]/Techni artemio ID = [id number] for Anne Busby POCT-GLUCOSE [id number] 17:08:00 Test Item Value Reference Range Interpretation Comments POC-GLUCOSE METER 107 mg/dL 70-110 : TESTED A T [address] [address] (BEAKER) (test code [address], = 15[address]) [place] [address]: Sales Representative [employer]/Techni artemio ID = [id number] for FarheenJordyn aguial POCT-GLUCOSE [id number] 11:55:00 Test Item Value Reference Range Interpretation Comments POC-GLUCOSE METER 135 mg/dL 70-110 H : TESTED A T [address] [address] (BEAKER) (test code [address], = 1538) [place] [address]: Sales Representative [employer]/Techni artemio ID = [id number] for Bhavana verduzcoDee jassoy Anti-Nuclear Antibody (ROGER)2019-12-22 11:40:00 Test Item Value Reference Range Interpretation Comments ROGER (test code = 73726-9) Positive Negative A ZIA (test code = ZIA) Test performed by IFA method. Lab Interpretation (test Abnormal code = 60506-2) [facility] CenterANA Titer & [id number] 11:40:00 Test Item Value Reference Range Interpretation Comments ROGER Titer (test code = 68319-8) 1:40 ROGER Pattern (test code = 1781) Speckled [facility] CenterAnti-Nuclear Antibody (ROGER)2019-12-22 11:40:00 Test Item Value Reference Range Interpretation Comments ROGER (test code = 39644-6) Positive Negative A ZIA (test code = ZIA) Test performed by IFA method. Lab Interpretation (test Abnormal code = 15623-1) [facility] CenterANA Titer & [id number] 11:40:00 Test Item Value Reference Range Interpretation Comments ROGER Titer (test code = 22954-5) 1:40 ROGER Pattern (test code = 1781) Speckled [facility] CenterANTI-NUCLEAR ANTIBODY (ROGER)2019-12-22 11:40:00 Test Item Value Reference Range Interpretation Comments ANTI-NUCLEAR ANTIBODY (ROGER) (BEAKER) Positive Negative A (test code = 418) Test performed by IFA method.ROGER TITER AND [id number] 11:40:00 Test Item Value Reference Range Interpretation Comments ROGER TITER (BEAKER) (test code = :40 1541) ROGER PATTERN (BEAKER) (test code = Speckled 1781) POCT-GLUCOSE [id number] 06:44:00 Test Item Value Reference Range Interpretation Comments POC-GLUCOSE METER 92 mg/dL 70-110 : TESTED A T [address] [address] (BEAKER) (test code = [address], [address]) [facility] [address]: Sales Representative [employer]/Techni artemio ID = [id number] for Anne Busby COMPREHENSIVE METABOLIC [id number] 06:35:00 Test Item Value Reference Range Interpretation [...] S NOT APPLICABLE FOR DIALYSIS PATIEN TS. Sales Representative [employer] ID - ADMINCBC W/PLT COUNT & AUTO [id number] 06:16:00 Test Item Value Reference Range Interpretation [...] PERCENT (BEAKER) (test code = 2801) POCT-GLUCOSE [id number] 20:38:00 Test Item Value Reference Range Interpretation Comments POC-GLUCOSE METER 85 mg/dL 70-110 : TESTED A T [facility] [address] (BEAKER) (test code = [address], [address]) [place] [address]: Sales Representative [employer]/Techni artemio ID = [id number] for Anne Busby POCT-GLUCOSE [id number] 18:14:00 Test Item Value Reference Range Interpretation Comments POC-GLUCOSE METER 112 mg/dL 70-110 H : TESTED A T [facility] [address] (BEAKER) (test code [address], = [address]) [place] [address]: Sales Representative [employer]/Techni artemio ID = [id number] for Berta Servin POCT-GLUCOSE [id number] 13:00:00 Test Item Value Reference Range Interpretation Comments POC-GLUCOSE METER 77 mg/dL 70-110 : TESTED A T [address] [address] (BEAKER) (test code = [address], 15[address]) [facility] [address]: Sales Representative [employer]/Techni artemio ID = [id number] for Berta Servin POCT-GLUCOSE [id number] 07:32:00 Test Item Value Reference Range Interpretation Comments POC-GLUCOSE METER 60 mg/dL 70-110 L : TESTED A T [address] [address] (BEAKER) (test code = [address], 1538) [facility] [address]: Sales Representative [employer]/Techni artemio ID = [id number] for Marissa Page COMPREHENSIVE METABOLIC [id number] 06:11:00 Test Item Value Reference Range Interpretation [...] S NOT APPLICABLE FOR DIALYSIS PATIEN TS. Sales Representative [employer] ID - ADMINC-Reactive [id number] 06:06:00 Test Item Value Reference Range Interpretation Comments CRP (test code = 676) 1.63 mg/dL 0-0.5 H ZIA (test code = ZIA) Sales Representative [employer] ID - ADMIN Lab Interpretation (test Abnormal code = 69817-2) [facility] CenterC-Reactive [id number] 06:06:00 Test Item Value Reference Range Interpretation Comments CRP (test code = 676) 1.63 mg/dL 0-0.5 H ZIA (test code = ZIA) [employer] Representative [employer] ID - ADMIN Lab Interpretation (test Abnormal code = 29370-2) [facility] [id number] 06:06:00 Test Item Value Reference Range Interpretation Comments C-REACTIVE PROTEIN (BEAKER) (test 1.63 mg/dL 0.00-0.50 H code = 676) [employer] Representative [employer] ID - ADMINPOCT-GLUCOSE [id number] 06:04:00 Test Item Value Reference Range Interpretation Comments POC-GLUCOSE METER 56 mg/dL 70-110 L : Notified RN/MD: TESTED (BEAKER) (test code = AT [facility] L [address] [facility] 15[address]) [facility] [address]: Sales Representative [employer]/Techni artemio ID = [id number] for Nelda Abdi CBC W/PLT COUNT & AUTO [id number] 05:53:00 Test Item Value Reference Range Interpretation [...] (BEAKER) (test code = 2801) U/S, ABDOMINAL, [id number] 22:02:00Reason for exam:->thrombocytopenia / eval for hepatosplenomegalyFINAL [...] MDReport Verified Date/Time: 12/20/2019 22:02:21 US abdomen [id number] 22:02:00Interface, External Ris In - 12/20/2019 10:04 [...] Hever Marin MDReport Verified Date/Time: 12/20/2019 22:02:21 [facility] [id number] 22:02:00Interface, External Ris In - 12/20/2019 10:04 PM CDTFINAL REPORT INDICATION: thrombocytopenia / eval for hepatosplenomegaly COMPARISON: None. TECHNIQUE: Real-time transabdominalgray scale and color Doppler ultrasound of the abdomen. FINDINGS:Liver: Size: 14.3 cm. Ech ogenicity: Heterogeneous Masses/lesions: None. Intrahepatic bile ducts: Normal. [...] renal disease. Signed: Hever Marin MDReport Verified Date/Time:12/20/2019 22:02:21 [facility]PO[facility] [id number] 20:36:00 Test Item Value Reference Range Interpretation Comments POC-GLUCOSE METER 74 mg/dL 70-110 : Notified RN/MD: TESTED (BEAKER) (test code = AT [address], [facility] [address]: Sales Representative [employer]/Techni artemio ID = [id number] for Nelda Abdi POCT-GLUCOSE [id number] 17:50:00 Test Item Value Reference Range Interpretation Comments POC-GLUCOSE METER 72 mg/dL 70-110 : TESTED A T [address] (BEAKER) (test code = [address]) [facility] [place] [address]: Sales Representative [employer]/Techni artemio ID = [id number] for Christina osborne Berta CT, BRAIN, WITHOUT [id number] 16:08:00Unlisted Reason for Exam - Click Yes [...] Date/Time: 12/20/2019 16:08:40 CT brain without IV [id number] 16:08:00Interface, External Ris In - 12/20/2019 4:10 [...] Signed: Berta Muniz Verified Date/Time: 12/20/2019 16:08:40 [facility]CT [facility] without IV [id number] 16:08:00 Interface, External Ris In - 12/20/2019 4:10 [...] Berta Muniz MDReport Verified Date/Time: 12/20/2019 16:08:40 [facility]RAD, [facility]OT, 2 VIEWS, LEFT 2019-12-20 15:15:00Reason for exam:->Rule out osteomyelitisShould this be [...] MDReport Verified Date/Time: 12/20/2019 15:15:25 Reading Location: [facility] Radiology Reading Room , FOOT, 2 VIEWS, [id number] 15:15:00Reason for exam:->Rule out osteomyelitisShould this be [...] MDReport Verified Date/Time: 12/20/2019 15:15:25 Reading Location: [facility] Radiology Reading Room XR foot 2 views [id number] 15:15:00Interface, External Ris In - 12/20/2019 3:17 [...] Monahan Verified Date/Time: 12/20/2019 15:15:25 Reading Location: [facility] Radiology Reading Room [facility] HospitalXR foot 2 views [id number] 15:15:00Interface, External Ris In - 12/20/2019 3:17 [...] Monahanort Verified Date/Time: 12/20/2019 15:15:25 Reading Location: [facility] Radiology Reading Room [facility] HospitalXR foot 2 views [id number] 15:15:00Interface, External Ris In - 12/20/2019 3:17 [...] MDRtieraort Verified Date/Time: 12/20/2019 15:15:25 Reading Location: [facility] Radiology Reading Room [facility] HospitalXR foot 2 views [id number] 15:15:00Interface, External Ris In - 12/20/2019 3:17 [...] MDReport Verified Date/Time: 12/20/2019 15:15:25 Reading Location: [facility] Radiology Reading Room [facility] [id number] 14:56:00 Test Item Value Reference Range Interpretation Comments AMMONIA (BEAKER) (test code = 348) 33 mol/L 17-80 [employer] Representative [employer] ID - ADMINBlood gas, [id number] 14:41:00 Test Item Value Reference Range Interpretation Comments pH, Arterial (test code 7.33 7.35-7.45 L = 2744-1) pCO2, Arterial (test 58 See_Comment H [Autom ated message] code = 2019-8) The system [employer] generated this result transmit merna reference range : 35 - 45 mmHg. The reference range was not used to interpret this result as normal/abnormal . pO2, Arterial (test 109 See_Comment H [Automa merna message] code = 2703-7) The system [employer] generated this result transmit merna reference range [...] % Lab Interpretation Abnormal (test code = 48259-6) [facility] CenterBlood gas, [id number] 14:41:00 Test Item Value Reference Range Interpretation Comments pH, Arterial (test code 7.33 7.35-7.45 L = 2744-1) pCO2, Arterial (test 58 See_Comment H [Autom ated message] code = 2019-8) The system [employer] generated this result transmit merna reference range : 35 - 45 mmHg. The reference range was not used to interpret this result as normal/abnormal . pO2, Arterial (test 109 See_Comment H [Automa merna message] code = 2703-7) The system [employer] generated this result transmit merna reference range [...] % Lab Interpretation Abnormal (test code = 44294-1) [facility] CenterBLOOD GAS, [id number] 14:41:00 Test Item Value Reference Range Interpretation [...] code = 1819) 32.0 % Occult blood, [id number] 11:56:00 Test Item Value Reference Range Interpretation Comments Occult blood (test code = 2335-8) Negative Negative Lab Interpretation (test code = Normal 90234-3) [facility] CenterOccult blood, [id number] 11:56:00 Test Item Value Reference Range Interpretation Comments Occult blood (test code = 2335-8) Negative Negative Lab Interpretation (test code = Normal 18845-6) [facility] CenterOCCULT BLOOD, [id number] 11:56:00 Test Item Value Reference Range Interpretation Comments FECAL OCCULT BLOOD (BEAKER) (test Negative Negative code = 618) POCT-GLUCOSE [id number] 11:39:00 Test Item Value Reference Range Interpretation Comments POC-GLUCOSE METER 88 mg/dL 70-110 : TESTED A T [address] (BEAKER) (test code = [address], [address]) [facility] [address]: Sales Representative [employer]/Techni artemio ID = [id number] for Gifty Phelps [id number] 11:22:00 Test Item Value Reference Range Interpretation Comments Haptoglobin (test code = <8 14-258 L 4542-7) ZIA (test code = ZIA) Sales Representative [employer] ID - LEONIE Jay Lab Interpretation (test Abnormal code = 62992-8) [facility] CenterHaptoglobin2020-09-21 11:22:00 Test Item Value Reference Range Interpretation Comments Haptoglobin (test code = <8 14-258 L 4542-7) ZIA (test code = ZIA) Sales Representative [employer] ID - LEONIE F Lab Interpretation (test Abnormal code = 80774-0) [facility] CenterHAPTOGLOBIN2020-09-21 11:22:00 Test Item Value Reference Range Interpretation Comments HAPTOGLOBIN (BEAKER) (test code = < mg/dL 14-258 L 366) Sales Representative [employer] ID - LEONIE FT4, [id number] 11:01:00 Test Item Value Reference Range Interpretation Comments Free T4 (test code = 0.52 ng/dL 0.9-1.8 L 3024-7) ZIA (test code = ZIA) Sales Representative [employer] ID - ADMIN Lab Interpretation (test Abnormal code = 09431-0) [facility] CenterT4, [id number] 11:01:00 Test Item Value Reference Range Interpretation Comments Free T4 (test code = 0.52 ng/dL 0.9-1.8 L 3024-7) ZIA (test code = ZIA) Sales Representative [employer] ID - ADMIN Lab Interpretation (test Abnormal code = 90328-8) [facility] CenterT4, [id number] 11:01:00 Test Item Value Reference Range Interpretation Comments FREE T4 (BEAKER) (test code = 655) 0.52 ng/dL 0.90-1.80 L [employer] Representative [employer] ID - ADMINPeripheral Blood Smear - Path [id number] 08:19:00 Test Item Value Reference Range Interpretation [...] M.D. code = 2849) (electronic signature) [facility] CenterPeripheral Blood Smear - Path [id number] 08:19:00 Test Item Value Reference Range Interpretation [...] M.D. code = 2849) (electronic signature) [facility] CenterPERIPHERAL BLOOD SMEAR - PATHOLOGIST REVIEW 2019-12-20 08:19:00 Test Item Value Reference Range Interpretation Comments RBC MORPHOLOGY Target Cells (BEAKER) (test code = 2846) RBC MORPHOLOGY Basophilic Stippling (BEAKER) (test code = 56623) RBC MORPHOLOGY Nucleated Red Blood Cells (BEAKER) (test code = 30372) PERIPHERAL SMR Normochromic normocytic REVIEW (BEAKER) anemia with a few target (test code = 2640) cells, nucleated RBCs and basophilic stippling. No increase in schistocytes. WBCs normal in number and morphology. Thrombocytopenia with normal platelet morphology. [id number]-NNWPUZFHFZI-548 Jovita Griffith M.D. 2 (BEAKER) (test (electronic signature) code = 2849) Vitamin B12 and [id number] 06:37:00 Test Item Value Reference Range Interpretation Comments Vitamin B12 (test 1431 pg/mL 211-911 H code = 2132-9) Folate (test code = 17.00 ng/mL See_Comment [Automa merna 2284-8) message] The system which generated this result transmit merna reference range : >=5.4. The reference range was not used to interpret this result as normal/abnormal . ZIA (test code = ZIA) Sales Representative [employer] ID - ADMIN Lab Interpretation Abnormal (test code = 43784-5) [facility] CenterVitamin B12 and [id number] 06:37:00 Test Item Value Reference Range Interpretation Comments Vitamin B12 (test 1431 pg/mL 211-911 H code = 2132-9) Folate (test code = 17.00 ng/mL See_Comment [Automa merna 2284-8) message] The system which generated this result transmit merna reference range : >=5.4. The reference range was not used to interpret this result as normal/abnormal . ZIA (test code = ZIA) Sales Representative [employer] ID - ADMIN Lab Interpretation Abnormal (test code = 34660-0) [facility] CenterVITAMIN B12 AND [id number] 06:37:00 Test Item Value Reference Range Interpretation Comments VITAMIN B12 (BEAKER) (test code = 1431 pg/mL 211-911 H 774) FOLATE (BEAKER) (test code = 362) 17.00 ng/mL >=5.4 [employer] Representative [employer] ID - ADMINPOCT-GLUCOSE [id number] 06:32:00 Test Item Value Reference Range Interpretation Comments POC-GLUCOSE METER 79 mg/dL 70-110 : TESTED A T [address] (BEAKER) (test code = [address], [address]) [facility] [address]: Sales Representative [employer]/Techni artemio ID = [id number] for Anahi Sherman [id number] 06:25:00 Test Item Value Reference Range Interpretation Comments Ferritin (test code = 595.00 ng/mL 10-291 H 2276-4) ZIA (test code = ZIA) Sales Representative [employer] ID - ADMIN Lab Interpretation (test Abnormal code = 71790-3) [facility] CenterTSH/Free T4 If [id number] 06:25:00 Test Item Value Reference Range Interpretation Comments TSH (test code = 21.210 See_Comment H [Automated 61337-7) message] The system which generated this result transmit merna reference range : 0.350 - 5.500 uIU/mL. The reference range was not used to interpret this result as normal/abnormal . ZIA (test code = ZIA) Sales Representative [employer] ID - ADMIN Lab Interpretation Abnormal (test code = 68777-1) [facility] CenterFerritin2020-09-21 06:25:00 Test Item Value Reference Range Interpretation Comments Ferritin (test code = 595.00 ng/mL 10-291 H 2276-4) ZIA (test code = ZIA) Sales Representative [employer] ID - ADMIN Lab Interpretation (test Abnormal code = 86257-4) [facility] CenterTS/Free T4 If [id number] 06:25:00 Test Item Value Reference Range Interpretation Comments TSH (test code = 21.210 See_Comment H [Automated 05707-4) message] The system which generated this result transmit merna reference range : 0.350 - 5.500 uIU/mL. The reference range was not used to interpret this result as normal/abnormal . ZIA (test code = ZIA) Sales Representative [employer] ID - ADMIN Lab Interpretation Abnormal (test code = 24040-6) [facility] CenterFERRITIN2020-09-21 06:25:00 Test Item Value Reference Range Interpretation Comments FERRITIN (BEAKER) (test code = 595.00 ng/mL 10.00-291.00 H 361) [employer] Representative [employer] ID - ADMINTSH/FREE T4 IF [id number] 06:25:00 Test Item Value Reference Range Interpretation Comments THYROID STIMULATING HORMONE 21.210 uIU/mL 0.350-5.500 H (BEAKER) (test code = 772) Sales Representative [employer] ID - EVCXFDpzqsendhc9113-59-00 06:06:00 Test Item Value Reference Range Interpretation Comments Fibrinogen (test code = 340 mg/dL 671-819 2474-7) ZIA (test code = ZIA) Final Information (Auto Output) Lab Interpretation (test Normal code = 02962-2) [facility] CenterPT/[id number] 06:06:00 Test Item Value Reference Interpretation Comments Range Protime (test code = 13.5 See_Comment H [Autom ated 5902-2) message] The system which generated this result transmitted reference range : 9.3 - 12.0 sec. The reference range was not used to interpret this result as normal/abnormal . INR (test code = 1.25 See_Comment [Automated 6301-6) message] The system which generated this result transmitted reference range : <=5.90. The reference range was not used to interpret this result as normal/abnormal . PTT (test code = 38.2 See_Comment H [Automated 04485-0) message] The system which generated this result [...] Output) Lab Interpretation Abnormal (test code = 72810-5) [facility] CenterFibrinogen2020-09-21 06:06:00 Test Item Value Reference Range Interpretation Comments Fibrinogen (test code = 340 mg/dL 417-775 3724-7) ZIA (test code = ZIA) Final Information (Auto Output) Lab Interpretation (test Normal code = 60332-8) [facility] CenterPT/[id number] 06:06:00 Test Item Value Reference Interpretation Comments Range Protime (test code = 13.5 See_Comment H [Autom ated 5902-2) message] The system which generated this result transmitted reference range : 9.3 - 12.0 sec. The reference range was not used to interpret this result as normal/abnormal . INR (test code = 1.25 See_Comment [Automated 6301-6) message] The system which generated this result transmitted reference range : <=5.90. The reference range was not used to interpret this result as normal/abnormal . PTT (test code = 38.2 See_Comment H [Automated 40573-9) message] The system which generated this result [...] Output) Lab Interpretation Abnormal (test code = 19306-2) [facility] CenterFIBRINOGEN2020-09-21 06:06:00 Test Item Value Reference Range Interpretation Comments FIBRINOGEN LEVEL (BEAKER) (test 340 mg/dL 200-400 code = 658) Final Information (Auto Output)[id number] 06:06:00 Test Item Value Reference Range Interpretation [...] = 2502-3) ZIA (test code = ZIA) [employer] Representative [employer] ID - ADMIN Lab Interpretation (test Abnormal code = 78502-8) [facility] CenterIron, TIBC, % sat. (without ferritin)2019-12-20 05:59:00 Test Item Value Reference Range Interpretation Comments Iron (test code = 2498-4) 92.0 ug/dL 45-170 TIBC (test code = 2500-7) 151 ug/dL 250-550 L Iron % Saturation (test 61 % 20-55 H code = 2502-3) ZIA (test code = ZIA) Sales Representative [employer] ID - ADMIN Lab Interpretation (test Abnormal code = 60583-8) [facility] CenterIRON, TIBC, % SAT. (WITHOUT FERRITIN)2019-12-20 05:59:00 Test Item Value Reference Range Interpretation Comments IRON (BEAKER) (test code = 547) 92.0 ug/dL 45.0-170.0 TOTAL IRON BINDING CAPACITY 151 ug/dL 250-550 L (BEAKER) (test code = 769) IRON % SATURATION (2) (BEAKER) 61 % 20-55 H (test code = 2590) [employer] Representative [employer] ID - ADMINCOMPREHENSIVE METABOLIC [id number] 05:55:00 Test Item Value Reference Range Interpretation [...] S NOT APPLICABLE FOR DIALYSIS PATIEN TS. [employer] Representative [employer] ID - CQHTLI-kpssj7120-67-21 05:46:00 Test Item Value Reference Range Interpretation Comments D-Dimer, Quant (test 1.09 mg/L <0.50 H code = 84799-7) ZIA (test code = ZIA) REGARDING D-DIMER RESULTS: The 98% NPV (Negative Predictive Value) for DVT/PE exclusion is 0.50 mg/L FEU as suggested by the transport tech and as approved by the FDA.Final Information (Auto Output) Lab Interpretation (test Abnormal code = 58045-0) [facility] CenterD-fpvgj7510-08-36 05:46:00 Test Item Value Reference Range Interpretation Comments D-Dimer, Quant (test 1.09 mg/L <0.50 H code = 37678-5) ZIA (test code = ZIA) REGARDING D-DIMER RESULTS: The 98% NPV (Negative Predictive Value) for DVT/PE exclusion is 0.50 mg/L FEU as suggested by the transport tech and as approved by the FDA.Final Information (Auto Output) Lab Interpretation (test Abnormal code = 89952-4) [facility] CenterD-[id number] 05:46:00 Test Item Value Reference Range Interpretation Comments D-DIMER QUANTITATIVE (BEAKER) (test 1.09 mg/L <0.50 H code = 671) REGARDING D-DIMER RESULTS: The 98% NPV (Negative Predictive Value) for DVT/PE exclusion is 0.50 mg/LFEU as suggested by the transport tech and as approved by the FDA.Final Information (Auto Output)Reticulocyte [id number] 05:42:00 Test Item Value Reference Range Interpretation Comments % Retic (test code = 72123-4) 5.9 % 0.4-2.9 H Lab Interpretation (test code = Abnormal 43270-0) [facility] CenterReticulocyte bwzra9530-10-17 05:42:00 Test Item Value Reference Range Interpretation Comments % Retic (test code = 64838-2) 5.9 % 0.4-2.9 H Lab Interpretation (test code = Abnormal 76505-3) [facility] CenterRETICULOCYTE [id number] 05:42:00 Test Item Value Reference Range Interpretation Comments RETICULOCYTE COUNT PCT (BEAKER) (test 5.9 % 0.4-2.9 H code = 575) CBC W/PLT COUNT & AUTO [id number] 05:33:00 Test Item Value Reference Range Interpretation [...] U/L 107-206 ZIA (test code = ZIA) [employer] Representative [employer] ID - ADMIN Lab Interpretation (test Normal code = 05481-7) [facility] CenterLactate dehydrogenase (LDH)2019-12-19 21:19:00 Test Item Value Reference Range Interpretation Comments LDH (test code = 2532-0) 178 U/L 107-206 ZIA (test code = ZIA) Sales Representative [employer] ID - ADMIN Lab Interpretation (test Normal code = 94764-6) [facility] CenterLACTATE DEHYDROGENASE (LDH)2019-12-19 21:19:00 Test Item Value Reference Range Interpretation Comments LACTATE DEHYDROGENASE (BEAKER) (test 178 U/L 107-206 code = 635) [employer] Representative [employer] ID - ADMINPOCT-GLUCOSE [id number] 20:47:00 Test Item Value Reference Range Interpretation Comments POC-GLUCOSE METER 102 mg/dL 70-110 : TESTED A T [facility] [address] (BEAKER) (test code [address], = [address]) [facility] [address]: Sales Representative [employer]/Techni artemio ID = [id number] for Anahi Sherman POCT-GLUCOSE [id number] 16:18:00 Test Item Value Reference Range Interpretation Comments POC-GLUCOSE METER 96 mg/dL 70-110 : TESTED A T [address] (BEAKER) (test code = [address], [address]) [facility] [address]: Sales Representative [employer]/Techni artemio ID = [id number] for Nalini Jean Baptiste Basic Metabolic [id number] 06:26:00 Test Item Value Reference Range Interpretation Comments Sodium (test code = 138 meq/L 786-068 3752-2) Potassium (test code = 3.9 meq/L 3.6-5.5 2823-3) Chloride (test code = 99 meq/L 98-106 2075-0) CO2 (test code = 30 meq/L 20-29 H 2027-9) BUN (test code = 47 mg/dL 10-26 H 3094-0) Creatinine (test code 3.04 mg/dL 0.5-1.2 H = 2160-0) Glucose (test code = 82 mg/dL 70-110 2345-7) Calcium (test code = 7.9 mg/dL 8.5-10.5 L 57590-0) EGFR (test code = 15 mL/min/1.73 [place] [address]-1) NOT ACCURATE CREATININE CLEARANCE IN PREDICTING GLOMERULAR FILTRATION RATE . ESTIMATED GFR I S NOT APPLICABLE FOR DIALYSIS PATIENTS. ZIA (test code = ZIA) Sales Representative [employer] ID - ADMIN Lab Interpretation Abnormal (test code = 17394-5) [facility] Metabolic [id number] 06:26:00 Test Item Value Reference Range Interpretation Comments Sodium (test code = 138 meq/L 880-063 7069-2) Potassium (test code = 3.9 meq/L 3.6-5.5 2823-3) Chloride (test code = 99 meq/L 98-106 2075-0) CO2 (test code = 30 meq/L 20-29 H 2027-9) BUN (test code = 47 mg/dL 10-26 H 3094-0) Creatinine (test code 3.04 mg/dL 0.5-1.2 H = 2160-0) Glucose (test code = 82 mg/dL 70-110 2345-7) Calcium (test code = 7.9 mg/dL 8.5-10.5 L 12053-8) EGFR (test code = 15 mL/min/1.73 [place] [address]-9) NOT ACCURATE CREATININE CLEARANCE IN PREDICTING GLOMERULAR FILTRATION RATE . ESTIMATED GFR I S NOT APPLICABLE FOR DIALYSIS PATIENTS. ZIA (test code = ZIA) Sales Representative [employer] ID - ADMIN Lab Interpretation Abnormal (test code = 65593-6) [facility] CenterBASI METABOLIC [id number] 06:26:00 Test Item Value Reference Range Interpretation [...] S NOT APPLICABLE FOR DIALYSIS PATIEN TS. Sales Representative [employer] ID - ADMINCBC W/PLT COUNT & AUTO [id number] 06:04:00 Test Item Value Reference Range Interpretation [...] PERCENT (BEAKER) (test code = 2801) POCT-GLUCOSE [id number] 05:35:00 Test Item Value Reference Range Interpretation Comments POC-GLUCOSE METER 85 mg/dL 70-110 : Notified RN/MD: TESTED (ROBERT) (test code = AT [facility] [address] [place] [address]: Sales Representative [employer]/Techni artemio ID = [id number] for Niraj , Zonia POCT-GLUCOSE [id number] 21:46:00 Test Item Value Reference Range Interpretation Comments POC-GLUCOSE METER 125 mg/dL 70-110 H : Notified RN/MD: TESTED (ROBERT) (test code AT [facility] [address]) [place] [address]: Sales Representative [employer]/Techni artemio ID = [id number] for Keen , Zonia POCT-GLUCOSE [id number] 16:17:00 Test Item Value Reference Range Interpretation Comments POC-GLUCOSE METER 103 mg/dL 70-110 : TESTED A T [address] (BEAKER) (test code [address], = [address]) [place] [address]: Sales Representative [employer]/Techni artemio ID = [id number] for Nalini Jean Baptiste POCT-GLUCOSE [id number] 07:56:00 Test Item Value Reference Range Interpretation Comments POC-GLUCOSE METER 111 mg/dL 70-110 H : TESTED A T [address] (BEAKER) (test code [address], = [address]) [place] [address]: Sales Representative [employer]/Techni artemio ID = [id number] for Akhil hurtado, Rachelleea POCT-GLUCOSE [id number] 06:25:00 Test Item Value Reference Range Interpretation Comments POC-GLUCOSE METER 57 mg/dL 70-110 L : TESTED A T [address] (BEAKER) (test code = [address]) [place] [address]: Sales Representative [employer]/Techni artemio ID = [id number] for Brow n, Anne POCT-GLUCOSE [id number] 21:55:00 Test Item Value Reference Range Interpretation Comments POC-GLUCOSE METER 76 mg/dL 70-110 : TESTED A T [address] (BEAKER) (test code = [address], [address]) [place] [address]: Sales Representative [employer]/Techni artemio ID = [id number] for Brow n, Anne POCT-GLUCOSE [id number] 18:03:00 Test Item Value Reference Range Interpretation Comments POC-GLUCOSE METER 81 mg/dL 70-110 : TESTED A T [address] (BEAKER) (test code = [address], [address]) [place] [address]: Sales Representative [employer]/Techni artemio ID = [id number] for Abrahamadnois toro, Ericka POCT-GLUCOSE [id number] 12:33:00 Test Item Value Reference Range Interpretation Comments POC-GLUCOSE METER 73 mg/dL 70-110 : TESTED A T [facility] [address] (BEAKER) (test code = [address], [address]) [place] [address] 478: Sales Representative [employer]/Techni artemio ID = [id number] for Jeremias Boltonsa Hepatitis B surface [id number] 10:49:00 Test Item Value Reference Range Interpretation Comments Hep B S Ab (test code <8.0 See_Comment [Auto mated = 58522-5) message] The system which generated this result transmit merna reference range : <8.0 mIU/mL. Th e reference range was not used to interpret this result as normal/abnormal . ZIA (test code = ZIA) Sales Representative [employer] ID Bijal Jay Lab Interpretation Normal (test code = 41175-3) [facility] [id number] 10:49:00 Test Item Value Reference Range Interpretation Comments Hep B S Ab (test code <8.0 See_Comment [Auto mated = 93099-4) message] The system which generated this result transmit merna reference range : <8.0 mIU/mL. Th e reference range was not used to interpret this result as normal/abnormal . ZIA (test code = ZIA) Sales Representative [employer] ID Bijal Jay Lab Interpretation Normal (test code = 02248-4) [facility] SURFACE [id number] 10:49:00 Test Item Value Reference Range Interpretation Comments HEPATITIS B SURFACE ANTIBODY < mIU/mL <8.0 (BEAKER) (test code = 647) Sales Representative [employer] ID Bijal HADLEY epatitis B core antibody, [id number] 10:43:00 Test Item Value Reference Range Interpretation Comments Hep B Core Total Ab Nonreactive Nonreactive (test code = 91646-1) ZIA (test code = ZIA) Sales Representative [employer] ID Bijal Jay Lab Interpretation (test Normal code = 12885-7) [facility] [id number] 10:43:00 Test Item Value Reference Range Interpretation Comments Hepatitis C Ab (test Nonreactive Nonreactive code = 52011-3) ZIA (test code = ZIA) Sales Representative [employer] ID - LEONIE Jay Lab Interpretation (test Normal code = 23938-0) [facility] antibody, [id number] 10:43:00 Test Item Value Reference Range Interpretation Comments Hep B Core Total Ab Nonreactive Nonreactive (test code = 45606-3) ZIA (test code = ZIA) Sales Representative [employer] ID Bijal Jay Lab Interpretation (test Normal code = 86241-3) [facility] [id number] 10:43:00 Test Item Value Reference Range Interpretation Comments Hepatitis C Ab (test Nonreactive Nonreactive code = 28040-8) ZIA (test code = ZIA) Sales Representative [employer] ID - LEONIE F Lab Interpretation (test Normal code = 52818-4) [facility] [id number] 10:43:00 Test Item Value Reference Range Interpretation Comments HEPATITIS C ANTIBODY (BEAKER) Nonreactive Nonreactive (test code = 367) Sales Representative [employer] ID - LEONIE FHEPATITIS B CORE ANTIBODY, [id number] 10:43:00 Test Item Value Reference Range Interpretation Comments HEPATITIS B CORE TOTAL ANTIBODY Nonreactive Nonreactive (BEAKER) (test code = 497) Sales Representative [employer] ID - LEONIE FPOCT-GLUCOSE [id number] 06:31:00 Test Item Value Reference Range Interpretation Comments POC-GLUCOSE METER 67 mg/dL 70-110 L : TESTED A T [facility] (BEAKER) (test code = [address], 1538) [facility] 77 478: Sales Representative [employer]/Techni artemio ID = [id number] for Anne Busby COMPREHENSIVE METABOLIC [id number] 05:10:00 Test Item Value Reference Range Interpretation [...] S NOT APPLICABLE FOR DIALYSIS PATIEN TS. Sales Representative [employer] ID - ADMINCBC W/PLT COUNT & AUTO [id number] 04:36:00 Test Item Value Reference Range Interpretation [...] PERCENT (BEAKER) (test code = 2801) POCT-GLUCOSE [id number] 21:14:00 Test Item Value Reference Range Interpretation Comments POC-GLUCOSE METER 79 mg/dL 70-110 : TESTED A T [facility] (BEAKER) (test code = [address] [facility], 1538) [facility] 77 478: Sales Representative [employer]/Techni artemio ID = [id number] for Anne Busby POCT-GLUCOSE [id number] 18:35:00 Test Item Value Reference Range Interpretation Comments POC-GLUCOSE METER 68 mg/dL 70-110 L : Notified RN/MD: TESTED (BEAKER) (test code = AT [address] [address]) [facility] [address]: Sales Representative [employer]/Techni artemio ID = [id number] for Alondra Kelley SARS-COV2/RT-PCR ([facility])2019-12-16 17:53:00 Test Item Value Reference Range Interpretation Comments SARS-COV2/RT-PCR (test Negative Not Detected, Negative, code = 7476345) See external report for linked test SARS-COV-2 PERFORMING LAB [facility] JANET (test code = 0807233) Negative result for this test determines that [...] 564(g) of the Act.Fact Sheet for Healthcare Providers:https://www.[employer].com/sites/default/files/product/documents/Fact_Shee p_UP_Koxuybonf_Agwl_CZKS-JmL-1.pdfFact Sheet for Healthcare Patients:https://www.[employer]/sites/default/files/product/ documents/Kftt_Iahev_Lyomedis_Xuom_DOPM-QnB-5.pdfPerforming Laboratory:[facility] Hospitalalexys [place], [place] [address]Rergaugqp B surface [id number] 16:57:00 Test Item Value Reference Range Interpretation Comments HBsAg Screen (test code = Nonreactive Nonreactive 5195-3) ZIA (test code = ZIA) Sales Representative [employer] ID - ADMIN Lab Interpretation (test Normal code = 50585-9) [facility] CenterHep[facility] surface [id number] 16:57:00 Test Item Value Reference Range Interpretation Comments HBsAg Screen (test code = Nonreactive Nonreactive 5195-3) ZIA (test code = ZIA) Sales Representative [employer] ID - ADMIN Lab Interpretation (test Normal code = 54483-1) [facility] CenterHEPAT[facility]IS [facility] SURFACE [id number] 16:57:00 Test Item Value Reference Range Interpretation Comments HEPATITIS B SURFACE ANTIGEN (2) Nonreactive Nonreactive (ROBERT) (test code = 2585) Sales Representative [employer] ID - ADMINGERHARD, TUNNELED CATHETER [id number] 15:06:00Reason for Central Line/PICC?->Need for hemodialysis accessReason [...] the patient's medical record by the nurse. Billet Checker: Soto Arias M.D. Drawing Machine Operator: none. Approach: Right internal jugular [...] needle into the right atrium. A 4 Syrian micropuncture sheath was placed and a 0.035 wire was advanced into the IVC. A subcutaneous tunnel was created in the left anterior chest wall by blunt dissection. A 23 cm tip to cuff 15.5 Syrian Duraflow 2 catheter was brought through the [...] Arias MDReport Verified Date/Time: 12/16/2019 15:06:45Reading Location: [facility] Radiology Reading Room IR Tunneled Catheter [id number] 15:06:00 Interface, External Ris In - 12/16/2019 [...] the patient's medical record by the nurse. Billet Checker: Soto Arias M.D. Ass istant: none. Approach: [...] A 23 cm tip to cuff 15.5 Syrian Duraflow 2 catheter was brought through the [...] MDReport Verified Date/Time: 12/16/2019 15:06:45 Reading Location: [facility] Radiology Reading [facility] 2019-12-16 15:06:00Interface, External Ris In - 12/16/2019 3:08 PM [...] the patient's medical record by the nurse. Billet Checker: Soto Arias M.D. Drawing Machine Operator: none. Approach: Right internal jugular [...] A 23 cm tip to cuff 15.5 Syrian Duraflow 2 catheter was brought through the tunnel. The vessel tract was serially dilated. A peel-away sheath was placed in the left IJ vein and the catheter was advanced through the sheath, with its distal tip terminating in the superior right atrium. The peel-away sheath was removed. The ports were flu shed and aspirated easily following placement. The catheter was sutured to the skin to secure its placement. The small jugular incision site demonstrated prolonged bleeding and pressure was held for approximately 10 minutes with satisfactory hemostasis. Sutures and Dermabond was placed. A resorbablepurse- string suture was placed at the catheter exit [...] MDReport Verified Date/Time: 12/16/2019 15:06:45 Reading Location: [facility] Radiology Reading Room [facility] HospitalPO[facility]SE [id number] 14:59:00 Test Item Value Reference Range Interpretation Comments POC-GLUCOSE METER 70 mg/dL 70-110 : Notified RN/MD: TESTED ([facility]) (test code = AT [facility] L [address]) [facility] [address]: Sales Representative [employer]/Techni artemio ID = [id number] for Alondra Kelley POCT-GLUCOSE [id number] 11:13:00 Test Item Value Reference Range Interpretation Comments POC-GLUCOSE METER 72 mg/dL 70-110 : Notified RN/MD: TESTED ([facility]) (test code = AT [facility] L [address]) [facility] [address]: Sales Representative [employer]/Techni artemio ID = [id number] for Alondra Kelley RAD, CHEST, 1 VIEW, NON [id number] 09:20:00Reason for exam:->fallShould this be performed at [...] MDReport Verified Date/Time: 12/16/2019 09:20:06 Reading Location: [facility] Radiology Reading Room XR chest 1 view portable / [id number] 09:20:00Interface, External Ris In - 12/16/2019 9:22 [...] MDReport Verified Date/Time: 12/16/2019 09:20:06 Reading Location: [facility] Radiology Reading Room Electronically yeimi d by: SOTO ARIAS MD on 12/16/2019 09:20 [facility] XR chest 1 view portable / [id number] 09:20:00Interface, External Ris In - 12/16/2019 9:22 [...] MDReport Verified Date/Time: 12/16/2019 09:20:06 Reading Location: [facility] Radiology [facility] 2019-12-16 06:03:00 Test Item Value Reference Range Interpretation Comments POC-GLUCOSE METER 74 mg/dL 70-110 : Notified RN/MD: TESTED (BEAKER) (test code = AT [facility] L [address]) [place] [address]: Sales Representative [employer]/Techni artemio ID = [id number] for Zonia Healy BASIC METABOLIC [id number] 05:08:00 Test Item Value Reference Range Interpretation [...] S NOT APPLICABLE FOR DIALYSIS PATIEN TS. Sales Representative [employer] ID - ADMINProthrombin time/[id number] 05:01:00 Test Item Value Reference Interpretation Comments Range Protime (test code = 14.1 See_Comment H [Autom ated 7882-2) message] The system which generated this result transmitted reference range : 9.3 - 12.0 sec. The reference range was not used to interpret this result as normal/abnormal . INR (test code = 1.31 See_Comment [Automated 9991-6) message] The system which generated this result [...] Output) Lab Interpretation Abnormal (test code = 87401-3) [facility] CenterProthrombin time/[id number] 05:01:00 Test Item Value Reference Interpretation Comments Range Protime (test code = 14.1 See_Comment H [Autom ated 4682-2) message] The system which generated this result transmitted reference range : 9.3 - 12.0 sec. The reference range was not used to interpret this result as normal/abnormal . INR (test code = 1.31 See_Comment [Automated 1511-6) message] The system which generated this result [...] Output) Lab Interpretation Abnormal (test code = 68489-5) [facility] CenterPROTHROMBIN TIME/[id number] 05:01:00 Test Item Value Reference Range Interpretation [...] Information (Auto Output)CBC W/PLT COUNT & AUTO [id number] 04:46:00 Test Item Value Reference Range Interpretation [...] PERCENT (BEAKER) (test code = 2801) POCT-GLUCOSE [id number] 17:13:00 Test Item Value Reference Range Interpretation Comments POC-GLUCOSE METER 220 mg/dL 70-110 H TESTED AT [place] [address] ([facility]) (test code = [facility] 1538) [address] BASIC METABOLIC [id number] 15:47:00 Test Item Value Reference Range Interpretation [...] NOT APPLICABLE FOR DIALYSIS PATIEN TS. POCT-GLUCOSE [id number] 11:30:00 Test Item Value Reference Range Interpretation Comments POC-GLUCOSE METER 268 mg/dL 70-110 H TESTED AT [place] [address] ([facility]) (test code = [facility] 1538) [address] POCT-GLUCOSE [id number] 07:08:00 Test Item Value Reference Range Interpretation Comments POC-GLUCOSE METER 208 mg/dL 70-110 H TESTED AT [place] [address] ([facility]) (test code = [facility] 1538) [address] CALCIUM, [id number] 06:47:00 Test Item Value Reference Range Interpretation Comments CALCIUM IONIZED (BEAKER) (test 1.11 mmol/L 1.12-1.27 L code = 698) PH, BLOOD (BEAKER) (test code = 7.40 1810) BASIC METABOLIC [id number] 06:40:00 Test Item Value Reference Range Interpretation [...] S NOT APPLICABLE FOR DIALYSIS PATIEN TS. [id number] 06:33:00 Test Item Value Reference Range Interpretation Comments PHOSPHORUS (BEAKER) (test code = 5.1 mg/dL 2.3-4.7 H 604) [id number] 06:33:00 Test Item Value Reference Range Interpretation Comments MAGNESIUM (BEAKER) (test code = 2.0 mg/dL 1.6-2.6 627) LACTIC ACID, VENOUS, WHOLE [id number] 06:02:00 Test Item Value Reference Range Interpretation Comments LACTATE BLOOD VENOUS (2) (BEAKER) 0.8 mmol/L 0.5-2.2 (test code = 2872) Effective 08/02/2015: Units/Reference Range ChangeNew: 0.5-2.2 mmol/L Previous: 5-20 mg/dLCBC W/PLT COUNT & AUTO [id number] 05:54:00 Test Item Value Reference Range Interpretation [...] PERCENT (BEAKER) (test code = 2801) POCT-GLUCOSE [id number] 21:30:00 Test Item Value Reference Range Interpretation Comments POC-GLUCOSE METER 248 mg/dL 70-110 H TESTED AT [place] [address] ([facility]) (test code = JULIANO Osborne [facility] 1538) [address] RAD, [id number] 21:22:00Reason for exam:->fall, tailbone painFINAL REPORT RAD, [...] Connor Verified Date/Time: 09/04/2017 21:22:03 Reading Location: [address] Reading Room POCT-GLUCOSE [id number] 17:37:00 Test Item Value Reference Range Interpretation Comments POC-GLUCOSE METER 222 mg/dL 70-110 H TESTED AT [place] [address] ([facility]) (test code = JULIANO Osborne [facility] 1538) [address] POCT-GLUCOSE [id number] 13:55:00 Test Item Value Reference Range Interpretation Comments POC-GLUCOSE METER 194 mg/dL 70-110 H TESTED AT [place] [address] ([facility]) (test code = JULIANO Osborne [facility] 1538) [address] POCT-GLUCOSE [id number] 12:34:00 Test Item Value Reference Range Interpretation Comments POC-GLUCOSE METER 229 mg/dL 70-110 H TESTED AT [place] [address] ([facility]) (test code = JULIANO Osborne [facility] 1538) [address] POCT-GLUCOSE [id number] 08:00:00 Test Item Value Reference Range Interpretation Comments POC-GLUCOSE METER 159 mg/dL 70-110 H TESTED AT [facility] 6720 (BEAKER) (test code = [place] 1538) [address] CALCIUM, [id number] 06:00:00 Test Item Value Reference Range Interpretation Comments CALCIUM IONIZED (BEAKER) (test 1.05 mmol/L 1.12-1.27 L code = 698) PH, BLOOD (BEAKER) (test code = 7.45 1810) [id number] 05:59:00 Test Item Value Reference Range Interpretation Comments PHOSPHORUS (BEAKER) (test code = 4.8 mg/dL 2.3-4.7 H 604) [id number] 05:59:00 Test Item Value Reference Range Interpretation Comments MAGNESIUM (BEAKER) (test code = 2.0 mg/dL 1.6-2.6 627) BASIC METABOLIC [id number] 05:59:00 Test Item Value Reference Range Interpretation [...] = 380) CBC W/PLT COUNT & AUTO [id number] 05:32:00 Test Item Value Reference Range Interpretation [...] PERCENT (BEAKER) (test code = 2801) POCT-GLUCOSE [id number] 20:36:00 Test Item Value Reference Range Interpretation Comments POC-GLUCOSE METER 211 mg/dL 70-110 H TESTED AT [place] [address] ([facility] (test code = JULIANO Osborne [facility] 1538) [address] CREATININE, RANDOM [id number] 19:55:00 Test Item Value Reference Range Interpretation Comments CREATININE URINE (BEAKER) (test 16.1 mg/dL code = 375) Reference Range: No NormalsPROTEIN, RANDOM [id number] 19:55:00 Test Item Value Reference Range Interpretation Comments PROTEIN, URINE (BEAKER) (test code 102 mg/dL 0-14 H = 1569) POCT-GLUCOSE [id number] 18:04:00 Test Item Value Reference Range Interpretation Comments POC-GLUCOSE METER 177 mg/dL 70-110 H TESTED AT [place] [address] ([facility]) (test code = [facility] 1538) [address] POCT-GLUCOSE [id number] 11:59:00 Test Item Value Reference Range Interpretation Comments POC-GLUCOSE METER 244 mg/dL 70-110 H TESTED AT [place] [address] ([facility] (test code = [facility] 1538) [address] POCT-GLUCOSE [id number] 07:53:00 Test Item Value Reference Range Interpretation Comments POC-GLUCOSE METER 160 mg/dL 70-110 H TESTED AT [place] [address] ([facility] (test code = [facility] 1538) [address] BASIC METABOLIC [id number] 05:29:00 Test Item Value Reference Range Interpretation [...] S NOT APPLICABLE FOR DIALYSIS PATIEN TS. [id number] 05:21:00 Test Item Value Reference Range Interpretation Comments MAGNESIUM (BEAKER) (test code = 2.1 mg/dL 1.6-2.6 627) HEPATIC FUNCTION [id number] 05:21:00 Test Item Value Reference Range Interpretation [...] code = 23 U/L 6-55 347) TROPONIN [id number] 05:18:00 Test Item Value Reference Range Interpretation [...] 0-1 PERCENT (BEAKER) (test code = 2801) [facility] [id number] 23:40:00 Test Item Value Reference Range Interpretation [...] acidosis, acute neurological disease, and persistent tachyarrhythmia.POCT-GLUCOSE [id number] 22:51:00 Test Item Value Reference Range Interpretation Comments POC-GLUCOSE METER 214 mg/dL 70-110 H TESTED AT [facility] 6720 ([facility]) (test code = [place] 1538) [address] RAD, CHEST, 1 VIEW, NON [id number] 21:42:00Reason for exam:->CHEST PAINShould this be performed at the bedside?->YesFINAL REPORT RAD, CHEST, 1 VIEW, NON DEPT INDICATION: CHEST PAIN COMPARISON: Chest x-ray 4 weeks ago TECHNIQUE: Single frontal view of the chest. IMPRESSION:Cardiomegaly.Mild pulmonary interstitial edema with a small right- sided effusion.No acute osseous abnormality. Signed: Dario Abraham MDReport Verified Date/Time: 09/02/2017 21:42:11 Reading Location: [address] Reading Room CREATININE, RANDOM [id number] 21:10:00 Test Item Value Reference Range Interpretation Comments CREATININE URINE (BEAKER) (test 35.5 mg/dL code = 375) Reference Range: No NormalsSODIUM, RANDOM [id number] 21:10:00 Test Item Value Reference Range Interpretation Comments SODIUM URINE (BEAKER) (test code = 80 meq/L 243) Reference Range: No NormalsURINALYSIS W/ [id number] 20:59:00 Test Item Value Reference Range Interpretation [...] code = 514) SOURCE(BEAKER) (test code = 9769) BASIC METABOLIC [id number] 16:49:00 Test Item Value Reference Range Interpretation [...] S NOT APPLICABLE FOR DIALYSIS PATIEN TS. [id number] 16:38:00 Test Item Value Reference Range Interpretation [...] (BEAKER) (test code = 700) BASIC METABOLIC [id number] 13:43:00 Test Item Value Reference Range Interpretation [...] NOT APPLICABLE FOR DIALYSIS PATIEN TS. POCT-GLUCOSE [id number] 12:44:00 Test Item Value Reference Range Interpretation Comments POC-GLUCOSE METER 283 mg/dL 70-110 H TESTED AT [facility] 6720 (BEAKER) (test code = [place] 1538) [address] CALCIUM, [id number] 07:03:00 Test Item Value Reference Range Interpretation Comments CALCIUM IONIZED (BEAKER) (test 1.02 mmol/L 1.12-1.27 L code = 698) PH, BLOOD (BEAKER) (test code = 7.43 1810) [id number] 05:28:00 Test Item Value Reference Range Interpretation Comments PHOSPHORUS (BEAKER) (test code = 3.3 mg/dL 2.3-4.7 604) [id number] 05:28:00 Test Item Value Reference Range Interpretation Comments MAGNESIUM (BEAKER) (test code = 1.5 mg/dL 1.6-2.6 L 627) BASIC METABOLIC [id number] 05:28:00 Test Item Value Reference Range Interpretation [...] PATIEN TS. CBC W/PLT COUNT & AUTO [id number] 05:06:00 Test Item Value Reference Range Interpretation [...] PERCENT (BEAKER) (test code = 2801) POCT-GLUCOSE [id number] 21:08:00 Test Item Value Reference Range Interpretation Comments POC-GLUCOSE METER 202 mg/dL 70-110 H TESTED AT [place] [address] ([facility] (test code = JULIANO Osborne [facility] 1538) [address] POCT-GLUCOSE [id number] 16:50:00 Test Item Value Reference Range Interpretation Comments POC-GLUCOSE METER 287 mg/dL 70-110 H TESTED AT [place] [address] ([facility]) (test code = JULIANO Osborne [facility] 1538) [address] POCT-GLUCOSE [id number] 12:21:00 Test Item Value Reference Range Interpretation Comments POC-GLUCOSE METER 213 mg/dL 70-110 H TESTED AT [place] [address] ([facility]) (test code = JULIANO Osborne [facility] 1538) [address] POCT-GLUCOSE [id number] 08:28:00 Test Item Value Reference Range Interpretation Comments POC-GLUCOSE METER 178 mg/dL 70-110 H TESTED AT [place] [address] ([facility]) (test code = JULIANO Osborne [facility] 1538) [address] CALCIUM, [id number] 07:06:00 Test Item Value Reference Range Interpretation Comments CALCIUM IONIZED (BEAKER) (test 0.99 mmol/L 1.12-1.27 L code = 698) PH, BLOOD (BEAKER) (test code = 7.42 1810) [id number] 05:37:00 Test Item Value Reference Range Interpretation Comments PHOSPHORUS (BEAKER) (test code = 3.5 mg/dL 2.3-4.7 604) [id number] 05:37:00 Test Item Value Reference Range Interpretation Comments MAGNESIUM (BEAKER) (test code = 1.6 mg/dL 1.6-2.6 627) BASIC METABOLIC [id number] 05:37:00 Test Item Value Reference Range Interpretation [...] PATIEN TS. CBC W/PLT COUNT & AUTO [id number] 05:07:00 Test Item Value Reference Range Interpretation [...] PERCENT (BEAKER) (test code = 2801) POCT-GLUCOSE [id number] 21:24:00 Test Item Value Reference Range Interpretation Comments POC-GLUCOSE METER 255 mg/dL 70-110 H TESTED AT [place] [address] ([facility]) (test code = [facility] Dylon [facility] 1538) [address] POCT-GLUCOSE [id number] 17:11:00 Test Item Value Reference Range Interpretation Comments POC-GLUCOSE METER 244 mg/dL 70-110 H TESTED AT [place] [address] ([facility]) (test code = [facility] Dylon [facility] 1538) [address] POCT-GLUCOSE [id number] 11:54:00 Test Item Value Reference Range Interpretation Comments POC-GLUCOSE METER 209 mg/dL 70-110 H TESTED AT [place] [address] ([facility]) (test code = [facility] Dylon [facility] 1538) [address] POCT-GLUCOSE [id number] 08:15:00 Test Item Value Reference Range Interpretation Comments POC-GLUCOSE METER 132 mg/dL 70-110 H TESTED AT [place] [address] ([facility]) (test code = [facility] Dylon [facility] 1538) [address] RAD, CHEST, 1 VIEW, NON [id number] 07:44:00Reason for exam:->edemaShould this be performed at the bedside?->YesFINAL REPORT Chest one view AP 08/07/2017 7:44 AM CLINICAL INDICATION: edema COMPARISON: 05/31/2017 IMPRESSION: Cardiomediastinal contours are stable. There is mild pulmonary edema,asymmetric to the right. There are trace bilateral pleural effusions, with bibasilar linear atelectasis. Sternotomy wires remain midline. Signed: Regan Cespedes Verified Date/Time: 08/07/2017 07:44:22 Reading Location: [facility] Radiology Reading Room [id number] 05:30:00 Test Item Value Reference Range Interpretation Comments FERRITIN (BEAKER) (test code = 361) 87 ng/mL 5-275 CBC W/PLT COUNT & AUTO [id number] 05:21:00 Test Item Value Reference Range Interpretation [...] % 20-55 L (test code = 2590) [id number] 05:11:00 Test Item Value Reference Range Interpretation Comments PHOSPHORUS (BEAKER) (test code = 3.6 mg/dL 2.3-4.7 604) [id number] 05:11:00 Test Item Value Reference Range Interpretation Comments MAGNESIUM (BEAKER) (test code = 2.0 mg/dL 1.6-2.6 627) BASIC METABOLIC [id number] 05:11:00 Test Item Value Reference Range Interpretation [...] H (BEAKER) (test code = 700) CALCIUM, [id number] 04:58:00 Test Item Value Reference Range Interpretation Comments CALCIUM IONIZED (BEAKER) (test 1.04 mmol/L 1.12-1.27 L code = 698) PH, BLOOD (BEAKER) (test code = 7.41 1810) RETICULOCYTE [id number] 04:51:00 Test Item Value Reference Range Interpretation Comments RETICULOCYTE COUNT PCT (BEAKER) (test 1.2 % 0.5-1.7 code = 575) POCT-GLUCOSE [id number] 20:49:00 Test Item Value Reference Range Interpretation Comments POC-GLUCOSE METER 202 mg/dL 70-110 H TESTED AT [facility] 6720 (BEAKER) (test code = JULIANO RUTH [place] 1538) [address] CREATININE, RANDOM [id number] 18:38:00 Test Item Value Reference Range Interpretation Comments CREATININE URINE (BEAKER) (test 56.3 mg/dL code = 375) Reference Range: No NormalsPROTEIN, RANDOM [id number] 18:38:00 Test Item Value Reference Range Interpretation Comments PROTEIN, URINE (BEAKER) (test code 189 mg/dL 0-14 H = 1569) URINALYSIS W/ [id number] 18:34:00 Test Item Value Reference Range Interpretation [...] 516) SOURCE(BEAKER) (test code = Urine, Voided 5599) POCT-GLUCOSE [id number] 17:38:00 Test Item Value Reference Range Interpretation Comments POC-GLUCOSE METER 143 mg/dL 70-110 H TESTED AT [place] [address] [facility] (test code = [facility] 1538) [address] POCT-GLUCOSE [id number] 12:30:00 Test Item Value Reference Range Interpretation Comments POC-GLUCOSE METER 218 mg/dL 70-110 H TESTED AT [place] [address] ([facility] (test code = [facility] 1538) [address] POCT-GLUCOSE [id number] 08:00:00 Test Item Value Reference Range Interpretation Comments POC-GLUCOSE METER 134 mg/dL 70-110 H TESTED AT [place] [address] ([facility] (test code = [facility] 1538) [address] CBC W/PLT COUNT & AUTO [id number] 04:23:00 Test Item Value Reference Range Interpretation [...] (BEAKER) (test code = 2801) BASIC METABOLIC [id number] 04:13:00 Test Item Value Reference Range Interpretation [...] S NOT APPLICABLE FOR DIALYSIS PATIEN TS. [id number] 04:10:00 Test Item Value Reference Range Interpretation Comments PHOSPHORUS (BEAKER) (test code = 4.9 mg/dL 2.3-4.7 H 604) [id number] 04:10:00 Test Item Value Reference Range Interpretation Comments MAGNESIUM (BEAKER) (test code = 1.4 mg/dL 1.6-2.6 L 627) [id number] 04:08:00 Test Item Value Reference Range Interpretation Comments FIBRINOGEN LEVEL (BEAKER) (test 548 mg/dl 225-434 H code = 658) [id number] 04:08:00 Test Item Value Reference Range Interpretation Comments PARTIAL THROMBOPLASTIN TIME 37.7 seconds 22.5-36.0 H (BEAKER) (test code = 760) PROTHROMBIN [id number] 04:07:00 Test Item Value Reference Range Interpretation Comments PROTIME (BEAKER) (test code = 16.2 seconds 11.7-14.7 H 759) INR (BEAKER) (test code = 370) 1.3 <=5.9 RECOMMENDED COUMADIN/WARFARIN INR THERAPY RANGESSTANDARD DOSE: 2.0 - 3.0 Includes: PROPHYLAXIS forvenous thrombosis, systemic embolization; TREATMENT for venous thrombosis and/or pulmonary embolus.HIGH RISK: Target INR is 2.5-3.5 for patients with mechanical heart valves.[id number] 16:59:00 Test Item Value Reference Range Interpretation Comments ACTIVATED CLOTTING TIME 219 sec TEST ED AT [place] [address] ([facility]) (test code = JULIANO Osborne [place] 441) [address] BASIC METABOLIC [id number] 14:25:00 Test Item Value Reference Range Interpretation [...] NOT APPLICABLE FOR DIALYSIS PATIEN TS. POCT-GLUCOSE [id number] 13:21:00 Test Item Value Reference Range Interpretation Comments POC-GLUCOSE METER 170 mg/dL 70-110 H TESTED AT [place] [address] ([facility]) (test code = MATTHIASIN Dylon [place] 1538) [address] POTASSIUM-STAT [id number] 13:20:00 Test Item Value Reference Range Interpretation Comments POTASSIUM (BEAKER) (test code = 4.2 meq/L 3.6-5.5 379) SODIUM NA-STAT [id number] 13:20:00 Test Item Value Reference Range Interpretation Comments SODIUM (BEAKER) (test code = 381) 133 meq/L 135-148 L HGB/HCT (H&H) - STAT [id number] 12:34:00 Test Item Value Reference Range Interpretation Comments HEMOGLOBIN (BEAKER) (test code = 10.8 g/dL 12.0-15.0 L 410) HEMATOCRIT (BEAKER) (test code = 32.0 % 36.0-45.0 L 411) POTASSIUM-STAT [id number] 08:15:00 Test Item Value Reference Range Interpretation Comments POTASSIUM (BEAKER) (test code = 4.1 meq/L 3.6-5.5 379) BLOOD GAS, [id number] 08:15:00 Test Item Value Reference Range Interpretation [...] code = 1819) 70.0 % SODIUM NA-STAT [id number] 08:15:00 Test Item Value Reference Range Interpretation Comments SODIUM (BEAKER) (test code = 381) 130 meq/L 135-148 L GLUCOSE-STAT [id number] 08:15:00 Test Item Value Reference Range Interpretation Comments GLUCOSE RANDOM (BEAKER) (test code 172 mg/dL 70-110 H = 652) HGB/HCT (H&H) - STAT [id number] 08:15:00 Test Item Value Reference Range Interpretation Comments HEMOGLOBIN (BEAKER) (test code = 8.8 g/dL 12.0-15.0 L 410) HEMATOCRIT (BEAKER) (test code = 26.0 % 36.0-45.0 L 411) BASIC METABOLIC [id number] 07:37:00 Test Item Value Reference Range Interpretation [...] PATIEN TS. CBC W/PLT COUNT & AUTO [id number] 07:20:00 Test Item Value Reference Range Interpretation [...] PERCENT (BEAKER) (test code = 2801) POCT-GLUCOSE [id number] 07:03:00 Test Item Value Reference Range Interpretation Comments POC-GLUCOSE METER 186 mg/dL 70-110 H TESTED AT [facility] 6720 (BEAKER) (test code = JULIANO RUTH [place] 1538) [address] B-TYPE NATRIURETIC FACTOR (BNP)2017-06-10 12:44:00 Test Item Value Reference Range Interpretation Comments B-TYPE NATRIURETIC PEPTIDE 1264 pg/mL 0-100 H (BEAKER) (test code = 700) [id number] 12:36:00 Test Item Value Reference Range Interpretation Comments MAGNESIUM (BEAKER) (test code = 1.6 mg/dL 1.6-2.6 627) BASIC METABOLIC [id number] 12:36:00 Test Item Value Reference Range Interpretation [...] NOT APPLICABLE FOR DIALYSIS PATIEN TS. POCT-GLUCOSE [id number] 12:04:00 Test Item Value Reference Range Interpretation Comments POC-GLUCOSE METER 274 mg/dL 70-110 H TESTED AT [facility] 6720 (BEAKER) (test code = [facility] 1538) [address] POCT-GLUCOSE [id number] 07:21:00 Test Item Value Reference Range Interpretation Comments POC-GLUCOSE METER 137 mg/dL 70-110 H TESTED AT [facility] 6720 ([facility] (test code = [facility] 1538) [address] BASIC METABOLIC [id number] 05:10:00 Test Item Value Reference Range Interpretation [...] 0-0 (BEAKER) (test code = 413) POCT-GLUCOSE [id number] 21:23:00 Test Item Value Reference Range Interpretation Comments POC-GLUCOSE METER 240 mg/dL 70-110 H TESTED AT [place] [address] ([facility]) (test code = JULIANO REYEZ 1538) [address] POCT-GLUCOSE [id number] 16:42:00 Test Item Value Reference Range Interpretation Comments POC-GLUCOSE METER 234 mg/dL 70-110 H TESTED AT [place] [address] ([facility]) (test code = JULIANO RUTH [place] 1538) [address] POCT-GLUCOSE [id number] 13:22:00 Test Item Value Reference Range Interpretation Comments POC-GLUCOSE METER 166 mg/dL 70-110 H TESTED AT [place] [address] ([facility]) (test code = JULIANO REYEZ 1538) [address] RAD, CHEST, 1 VIEW, NON [id number] 09:43:00Reason for exam:->s/p ACBShould this be performed [...] Lynda Ringepemily Verified Date/Time: 05/31/2017 09:43:30 ReadingLocation: [facility] B1 C013X Ortho Consult Reading Room POCT-GLUCOSE [id number] 06:57:00 Test Item Value Reference Range Interpretation Comments POC-GLUCOSE METER 136 mg/dL 70-110 H TESTED AT [facility] 6720 (BEAKER) (test code = JULIANO Osborne [facility] 1538) [address] CALCIUM, [id number] 06:41:00 Test Item Value Reference Range Interpretation Comments CALCIUM IONIZED (BEAKER) (test 1.10 mmol/L 1.12-1.27 L code = 698) PH, BLOOD (BEAKER) (test code = 7.42 1810) [id number] 06:17:00 Test Item Value Reference Range Interpretation Comments PHOSPHORUS (BEAKER) (test code = 3.3 mg/dL 2.3-4.7 604) [id number] 06:17:00 Test Item Value Reference Range Interpretation Comments MAGNESIUM (BEAKER) (test code = 1.8 mg/dL 1.6-2.6 627) BASIC METABOLIC [id number] 06:17:00 Test Item Value Reference Range Interpretation [...] PATIEN TS. CBC W/PLT COUNT & AUTO [id number] 05:07:00 Test Item Value Reference Range Interpretation [...] PERCENT (BEAKER) (test code = 2801) POCT-GLUCOSE [id number] 20:56:00 Test Item Value Reference Range Interpretation Comments POC-GLUCOSE METER 196 mg/dL 70-110 H TESTED AT [place] [address] ([facility]) (test code = [facility] 1538) [address] POCT-GLUCOSE [id number] 16:42:00 Test Item Value Reference Range Interpretation Comments POC-GLUCOSE METER 196 mg/dL 70-110 H TESTED AT [place] [address] ([facility]) (test code = [facility] 1538) [address] POCT-GLUCOSE [id number] 11:45:00 Test Item Value Reference Range Interpretation Comments POC-GLUCOSE METER 215 mg/dL 70-110 H TESTED AT [place] [address] ([facility]) (test code = [facility] 1538) [address] RAD, CHEST, 1 VIEW, NON [id number] 11:15:00Reason for exam:->s/p ACBShould this be performed at the bedside?->YesFINAL REPORT Chest one view compared to May 28, 2017 Discussion: Airspace opacities are seen in both lower lung regions, probably atelectasis. Correlate clinically for infection. I could not exclude small effusions. No pneumothorax. Upper lungs clear. Signed: Nisbet, Jeannette MDReport Verified Date/Time: 05/30/2017 11:15:07 Reading Location: [facility] Radiology Reading Room CALCIUM, [id number] 09:21:00 Test Item Value Reference Range Interpretation Comments CALCIUM IONIZED (BEAKER) (test 1.11 mmol/L 1.12-1.27 L code = 698) PH, BLOOD (BEAKER) (test code = 7.36 1810) BASIC METABOLIC [id number] 07:37:00 Test Item Value Reference Range Interpretation [...] S NOT APPLICABLE FOR DIALYSIS PATIEN TS. [id number] 07:28:00 Test Item Value Reference Range Interpretation Comments PHOSPHORUS (BEAKER) (test code = 3.8 mg/dL 2.3-4.7 604) [id number] 07:28:00 Test Item Value Reference Range Interpretation Comments MAGNESIUM (BEAKER) (test code = 1.9 mg/dL 1.6-2.6 627) CBC W/PLT COUNT & AUTO [id number] 07:26:00 Test Item Value Reference Range Interpretation [...] PERCENT (BEAKER) (test code = 2801) POCT-GLUCOSE [id number] 07:21:00 Test Item Value Reference Range Interpretation Comments POC-GLUCOSE METER 146 mg/dL 70-110 H TESTED AT [place] [address] ([facility]) (test code = [facility] 1538) [address] POCT-GLUCOSE [id number] 22:02:00 Test Item Value Reference Range Interpretation Comments POC-GLUCOSE METER 201 mg/dL 70-110 H TESTED AT [place] [address] ([facility]) (test code = [facility] 1538) [address] POCT-GLUCOSE [id number] 18:27:00 Test Item Value Reference Range Interpretation Comments POC-GLUCOSE METER 240 mg/dL 70-110 H TESTED AT [place] [address] ([facility]) (test code = [facility] 1538) 16455 POCT-GLUCOSE [id number] 12:13:00 Test Item Value Reference Range Interpretation Comments POC-GLUCOSE METER 193 mg/dL 70-110 H TESTED AT [place] [address] ([facility]) (test code = [facility] 1538) [address] POCT-GLUCOSE [id number] 09:02:00 Test Item Value Reference Range Interpretation Comments POC-GLUCOSE METER 132 mg/dL 70-110 H TESTED AT [place] [address] ([facility]) (test code = [facility] 1538) [address] CALCIUM, [id number] 05:42:00 Test Item Value Reference Range Interpretation Comments CALCIUM IONIZED (BEAKER) (test 1.12 mmol/L 1.12-1.27 code = 698) PH, BLOOD (AKER) (test code = 7.34 1810) COMPREHENSIVE METABOLIC [id number] 05:33:00 Test Item Value Reference Range Interpretation [...] S NOT APPLICABLE FOR DIALYSIS PATIEN TS. [id number] 05:32:00 Test Item Value Reference Range Interpretation Comments PHOSPHORUS (BEAKER) (test code = 3.6 mg/dL 2.3-4.7 604) [id number] 05:32:00 Test Item Value Reference Range Interpretation Comments MAGNESIUM (BEAKER) (test code = 2.2 mg/dL 1.6-2.6 627) CBC W/PLT COUNT & AUTO [id number] 05:01:00 Test Item Value Reference Range Interpretation [...] PERCENT (BEAKER) (test code = 2801) POCT-GLUCOSE [id number] 21:04:00 Test Item Value Reference Range Interpretation Comments POC-GLUCOSE METER 165 mg/dL 70-110 H TESTED AT [facility] 6720 ([facility] (test code = JULIANO Osborne [facility] 1538) [address] POCT-GLUCOSE [id number] 17:30:00 Test Item Value Reference Range Interpretation Comments POC-GLUCOSE METER 236 mg/dL 70-110 H TESTED AT [facility] 6720 ([facility] (test code = JULIANO Osborne [facility] 1538) [address] RAD, CHEST, 1 VIEW, NON [id number] 13:53:00Reason for exam:->assess for ill-defined opacityShould this [...] MDReport Verified Date/Time: 05/28/2017 13:53:03 Reading Location: [address] Radiology Reading Room POCT-GLUCOSE [id number] 11:53:00 Test Item Value Reference Range Interpretation Comments POC-GLUCOSE METER 215 mg/dL 70-110 H TESTED AT [place] [address] ([facility]) (test code = [facility] 1538) [address] POCT-GLUCOSE [id number] 08:32:00 Test Item Value Reference Range Interpretation Comments POC-GLUCOSE METER 168 mg/dL 70-110 H TESTED AT [place] [address] ([facility]) (test code = [facility] 1538) [address] CALCIUM, [id number] 05:44:00 Test Item Value Reference Range Interpretation Comments CALCIUM IONIZED (BEAKER) (test 1.09 mmol/L 1.12-1.27 L code = 698) PH, BLOOD ([facility]) (test code = 7.38 1810) [id number] 05:44:00 Test Item Value Reference Range Interpretation Comments PHOSPHORUS (BEAKER) (test code = 3.5 mg/dL 2.3-4.7 604) [id number] 05:44:00 Test Item Value Reference Range Interpretation Comments MAGNESIUM (BEAKER) (test code = 1.9 mg/dL 1.6-2.6 627) BASIC METABOLIC [id number] 05:44:00 Test Item Value Reference Range Interpretation [...] PATIEN TS. CBC W/PLT COUNT & AUTO [id number] 05:05:00 Test Item Value Reference Range Interpretation [...] PERCENT (BEAKER) (test code = 2801) POCT-GLUCOSE [id number] 21:03:00 Test Item Value Reference Range Interpretation Comments POC-GLUCOSE METER 173 mg/dL 70-110 H TESTED AT [place] [address] ([facility]) (test code = JULIANO Osborne [facility] 1538) [address] [id number] 18:15:00 Test Item Value Reference Range Interpretation Comments ACTIVATED CLOTTING TIME 147 sec TEST ED AT [place] [address] ([facility]) (test code = JULIANO Osborne [facility] 441) [address] [id number] 18:15:00 Test Item Value Reference Range Interpretation Comments ACTIVATED CLOTTING TIME 246 sec TEST ED AT [place] [address] ([facility]) [facility] 441) [address] POCT-GLUCOSE [id number] 12:39:00 Test Item Value Reference Range Interpretation Comments POC-GLUCOSE METER 219 mg/dL 70-110 H TESTED AT [place] [address] ([facility]) (test code = JULIANO Osborne [facility] 1538) [address] RAD, CHEST, 1 VIEW, NON [id number] 10:11:00Reason for exam:->pl effusionShould this be performed at the bedside?->YesFINAL REPORT Chest one view compared to May 26 Discussion: There is cardiac prominence. Upper lungs are clear. Ill-defined basilar densities are similar probably atelectasis. No gross effusion or pneumothorax with bilateral chest tubes in place. Signed: Jeannette Navaepemily Verified Date/Time: 05/27/2017 10:11:44 Reading Location: [facility] Radiology Reading Room POCT-GLUCOSE METER 2017-05-27 07:05:00 Test Item Value Reference Range Interpretation Comments POC-GLUCOSE METER 167 mg/dL 70-110 H TESTED AT [facility] 6720 (BEAKER) (test code = JULIANO [place] 1538) [address] CALCIUM, [id number] 06:20:00 Test Item Value Reference Range Interpretation Comments CALCIUM IONIZED (BEAKER) (test 0.98 mmol/L 1.12-1.27 L code = 698) PH, BLOOD (BEAKER) (test code = 7.50 1810) [id number] 04:56:00 Test Item Value Reference Range Interpretation Comments PHOSPHORUS (BEAKER) (test code = 2.6 mg/dL 2.3-4.7 604) [id number] 04:56:00 Test Item Value Reference Range Interpretation Comments MAGNESIUM (BEAKER) (test code = 2.0 mg/dL 1.6-2.6 627) BASIC METABOLIC [id number] 04:56:00 Test Item Value Reference Range Interpretation [...] PATIEN TS. CBC W/PLT COUNT & AUTO [id number] 04:36:00 Test Item Value Reference Range Interpretation [...] NEUTROPHILS ABSOLUTE COUNT 3.97 K/ L 1.56-6.13 ([facility]) (test code = 670) LYMPHOCYTES ABSOLUTE COUNT 1.41 K/ L 1.18-3.74 (AKER) (test code = 414) MONOCYTES ABSOLUTE COUNT (BEAKER) 0.44 K/ L 0.24-0.36 H (test code = 415) EOSINOPHILS ABSOLUTE COUNT 0.22 K/ L 0.04-0.36 (BEAKER) (test code = 416) BASOPHILS ABSOLUTE COUNT (AKER) 0.05 K/ L 0.01-0.08 (test code = 417) IMMATURE GRANULOCYTES-RELATIVE 1 % 0-1 PERCENT ([facility]) (test code = 2801) POCT-GLUCOSE [id number] 21:29:00 Test Item Value Reference Range Interpretation Comments POC-GLUCOSE METER 147 mg/dL 70-110 H TESTED AT [place] [address] ([facility]) (test code = [facility] 1538) [address] POCT-GLUCOSE [id number] 17:51:00 Test Item Value Reference Range Interpretation Comments POC-GLUCOSE METER 224 mg/dL 70-110 H TESTED AT [place] [address] ([facility]) (test code = [facility] 1538) [address] POCT-GLUCOSE [id number] 13:53:00 Test Item Value Reference Range Interpretation Comments POC-GLUCOSE METER 182 mg/dL 70-110 H TESTED AT [place] [address] ([facility]) (test code = [facility] [employer] [facility] 1538) [address] RAD, CHEST, 1 VIEW, NON [id number] 08:44:00Reason for exam:->pl effusionShould this be performed [...] MDReport Verified Date/Time: 05/26/2017 08:44:25 Reading Location: [address] Radiology Reading Room POCT- GLUCOSE [id number] 07:43:00 Test Item Value Reference Range Interpretation Comments POC-GLUCOSE METER 113 mg/dL 70-110 H TESTED AT [facility] 6720 (BEAKER) (test code = JULIANO R[place] 1538) [address] CALCIUM, [id number] 06:31:00 Test Item Value Reference Range Interpretation Comments CALCIUM IONIZED (BEAKER) (test 1.07 mmol/L 1.12-1.27 L code = 698) PH, BLOOD (BEAKER) (test code = 7.38 1810) [id number] 04:51:00 Test Item Value Reference Range Interpretation Comments PHOSPHORUS (BEAKER) (test code = 3.2 mg/dL 2.3-4.7 604) [id number] 04:51:00 Test Item Value Reference Range Interpretation Comments MAGNESIUM (BEAKER) (test code = 2.1 mg/dL 1.6-2.6 627) BASIC METABOLIC [id number] 04:51:00 Test Item Value Reference Range Interpretation [...] PATIEN TS. CBC W/PLT COUNT & AUTO [id number] 04:27:00 Test Item Value Reference Range Interpretation [...] PERCENT (BEAKER) (test code = 2801) POCT-GLUCOSE [id number] 23:48:00 Test Item Value Reference Range Interpretation Comments POC-GLUCOSE METER 123 mg/dL 70-110 H TESTED AT [facility] 6720 (BEAKER) (test code = JULIANO Osborne [place] 1538) [address] POCT-GLUCOSE [id number] 16:46:00 Test Item Value Reference Range Interpretation Comments POC-GLUCOSE METER 178 mg/dL 70-110 H TESTED AT [facility] 6720 (BEAKER) (test code = JULIANO Osborne [place] 1538) [address] BASIC METABOLIC [id number] 05:53:00 Test Item Value Reference Range Interpretation [...] S NOT APPLICABLE FOR DIALYSIS PATIEN TS. [id number] 05:52:00 Test Item Value Reference Range Interpretation Comments PHOSPHORUS (BEAKER) (test code = 4.2 mg/dL 2.3-4.7 604) [id number] 05:52:00 Test Item Value Reference Range Interpretation Comments MAGNESIUM (BEAKER) (test code = 2.3 mg/dL 1.6-2.6 627) CALCIUM, [id number] 05:27:00 Test Item Value Reference Range Interpretation Comments CALCIUM IONIZED (BEAKER) (test 1.12 mmol/L 1.12-1.27 code = 698) PH, BLOOD (BEAKER) (test code = 7.38 1810) CBC W/PLT COUNT & AUTO [id number] 05:07:00 Test Item Value Reference Range Interpretation [...] 417) IMMATURE GRANULOCYTES-RELATIVE 1 % 0-1 PERCENT ([facility]) (test code = 2801) RAD, CHEST, 1 VIEW, NON [id number] 04:45:00Reason for exam:->pl effusionShould this be performed at the bedside?->YesFINAL REPORT RAD, CHEST, 1 VIEW, NON DEPT INDICATION: pl effusion COMPARISON:Prior day's exam FINDINGS: Portable frontal view of the chest. IMPRESSION: Support Lines: Stable.Lungs and pleura: Unchanged airspace and pleural opacities. No pneumothorax.Heart and mediastinum: Stable contours. Stable surgical changes.Additional findings: None. Signed: JR Boswell Robert MDReport Verified Date/Time: 05/25/2017 04:45:08 Reading Location: [facility] C013Y CT Body Reading Room POCT-GLUCOSE [id number] 01:52:00 Test Item Value Reference Range Interpretation Comments POC-GLUCOSE METER 126 mg/dL 70-110 H TESTED AT [place] [address] ([facility]) (test code = JULIANO Osborne [facility] 1538) [id number] POCT-GLUCOSE [id number] 13:07:00 Test Item Value Reference Range Interpretation Comments POC-GLUCOSE METER 118 mg/dL 70-110 H TESTED AT [place] [address] ([facility]) (test code = JULIANO Osborne [facility] 1538) [id number] BRONCHIAL CULTURE + GRAM [id number] 11:35:00 Test Item Value Reference Range Interpretation Comments CULTURE ([facility]) (test code = 1095) Amikacin (test code [...] <1+ gram (BEAKER) (test code = positive 518090) cocci in pairs GRAM STAIN RESULT 1+ gram (BEAKER) (test code = variable rods 564466) 1+ Normal respiratory todd presentRAD, CHEST, 1 VIEW, NON [id number] 06:50:00Reason for exam:->pl effusionShould this be performed at the bedside?->YesFINAL REPORT RAD, CHEST, 1 VIEW, NON DEPT INDICATION: pl effusion COMPARISON:Prior day's exam FINDINGS: Portable frontal view of the chest. IMPRESSION: Support Lines: Stable.Lungs and pleura: Unchanged airspace and pleural opacities. No pneumothorax.Heart and mediastinum: Stable contours. Stable surgical changes.Additional findings: None. Signed: JR Boswell Robert MDReport Verified Date/Time: 05/24/2017 06:50:08 Reading Location: [facility] C013Y CT Body Reading Room BASIC METABOLIC [id number] 04:19:00 Test Item Value Reference Range Interpretation [...] NOT APPLICABLE FOR DIALYSIS PATIEN TS. CALCIUM, [id number] 04:16:00 Test Item Value Reference Range Interpretation Comments CALCIUM IONIZED (BEAKER) (test 1.06 mmol/L 1.12-1.27 L code = 698) PH, BLOOD (BEAKER) (test code = 7.40 1810) [id number] 04:11:00 Test Item Value Reference Range Interpretation Comments PHOSPHORUS (BEAKER) (test code = 6.0 mg/dL 2.3-4.7 H 604) [id number] 04:11:00 Test Item Value Reference Range Interpretation Comments MAGNESIUM (BEAKER) (test code = 2.4 mg/dL 1.6-2.6 627) CBC W/PLT COUNT & AUTO [id number] 03:50:00 Test Item Value Reference Range Interpretation [...] PERCENT (BEAKER) (test code = 2801) POCT-GLUCOSE [id number] 20:45:00 Test Item Value Reference Range Interpretation Comments POC-GLUCOSE METER 143 mg/dL 70-110 H TESTED AT [facility] 6720 (BEAKER) (test code = JULIANO REYEZ 1538) [address] POCT-GLUCOSE [id number] 20:45:00 Test Item Value Reference Range Interpretation Comments POC-GLUCOSE METER 145 mg/dL 70-110 H TESTED AT [facility] 6720 (BEAKER) (test code = [place]IANO [place] 1538) [address] [id number] 13:37:00 Test Item Value Reference Range Interpretation Comments PREALBUMIN (BEAKER) 10 mg/dL 14-45 L Specimen slightly (test code = 586) hemolyzed OXYGEN SATURATION, [id number] 12:31:00 Test Item Value Reference Range Interpretation Comments O2 SATURATION (MEASURED) (BEAKER) 94.5 % (test code = 1455) [id number] 11:02:00 Test Item Value Reference Range Interpretation Comments PREALBUMIN (BEAKER) (test code = 10 mg/dL 14-45 L 586) RAD, CHEST, 1 VIEW, NON [id number] 05:14:00while patient is intubated or has chest [...] MDReport Verified Date/Time: 05/23/2017 05:14:04 Reading Location: [address] Body Reading Room BASIC METABOLIC [id number] 03:48:00 Test Item Value Reference Range Interpretation [...] S NOT APPLICABLE FOR DIALYSIS PATIEN TS. [id number] 03:46:00 Test Item Value Reference Range Interpretation Comments MAGNESIUM (BEAKER) 2.4 mg/dL 1.6-2.6 Specimen slightly (test code = 627) hemolyzed [id number] 03:46:00 Test Item Value Reference Range Interpretation Comments PHOSPHORUS (BEAKER) 6.5 mg/dL 2.3-4.7 H Specimen slightly (test code = 604) hemolyzed CBC W/PLT COUNT & AUTO [id number] 03:26:00 Test Item Value Reference Range Interpretation [...] (BEAKER) (test code = 2801) BLOOD GAS, [id number] 03:18:00 Test Item Value Reference Range Interpretation [...] (test code = 1819) 36.0 % CALCIUM, [id number] 16:32:00 Test Item Value Reference Range Interpretation Comments CALCIUM IONIZED (BEAKER) (test 1.11 mmol/L 1.12-1.27 L code = 698) PH, BLOOD (BEAKER) (test code = 7.39 1810) BASIC METABOLIC [id number] 15:43:00 Test Item Value Reference Range Interpretation [...] NOT APPLICABLE FOR DIALYSIS PATIEN TS. POCT-GLUCOSE [id number] 12:53:00 Test Item Value Reference Range Interpretation Comments POC-GLUCOSE METER 118 mg/dL 70-110 H TESTED AT [facility] 6720 (BEAKER) (test code = [place]IANO [place] 1538) [address] BLOOD GAS, [id number] 10:42:00 Test Item Value Reference Range Interpretation [...] (test code = 1819) 40.0 % POCT-GLUCOSE [id number] 06:46:00 Test Item Value Reference Range Interpretation Comments POC-GLUCOSE METER 106 mg/dL 70-110 TESTED AT [facility] 6720 (BEAKER) (test code = JULIANO [place] 1538) [address] RAD, CHEST, 1 VIEW, NON [id number] 05:05:00while patient is intubated or has chest [...] exam.Additional findings: None. Signed: JR Boswell Robert [facility] Verified Date/Time: 05/22/2017 05:05:00 Reading Location: [facility] C013Y CT Body ReadingRoom BASIC METABOLIC [id number] 05:00:00 Test Item Value Reference Range Interpretation [...] S NOT APPLICABLE FOR DIALYSIS PATIEN TS. [id number] 04:41:00 Test Item Value Reference Range Interpretation Comments PHOSPHORUS (BEAKER) (test code = 6.4 mg/dL 2.3-4.7 H 604) [id number] 04:41:00 Test Item Value Reference Range Interpretation Comments MAGNESIUM (BEAKER) (test code = 2.6 mg/dL 1.6-2.6 627) CALCIUM, [id number] 04:26:00 Test Item Value Reference Range Interpretation Comments CALCIUM IONIZED (BEAKER) (test 1.09 mmol/L 1.12-1.27 L code = 698) PH, BLOOD (BEAKER) (test code = 7.40 1810) OXYGEN SATURATION, [id number] 04:25:00 Test Item Value Reference Range Interpretation Comments O2 SATURATION (MEASURED) (BEAKER) 77.0 % (test code = 1455) CBC W/PLT COUNT & AUTO [id number] 04:17:00 Test Item Value Reference Range Interpretation [...] code = 2801) LACTIC ACID, ARTERIAL, WHOLE [id number] 00:07:00 Test Item Value Reference Range Interpretation Comments LACTATE BLOOD 1.0 mmol/L 0.5-2.2 Specimen sligh tly ARTERIAL (2) (BEAKER) hemoly zed (test code = 2874) Effective 08/02/2015: Units/Reference Range ChangeNew: 0.5-2.2 mmol/L Previous: 5-20 mg/dLPOCT-GLUCOSE [id number] 23:47:00 Test Item Value Reference Range Interpretation Comments POC-GLUCOSE METER 180 mg/dL 70-110 H TESTED AT [facility] 6720 (BEAKER) (test code = JULIANO REYEZ 1534) [address] BLOOD GAS, [id number] 23:46:00 Test Item Value Reference Range Interpretation [...] code = 1819) 100.0 % SODIUM NA-STAT [id number] 23:46:00 Test Item Value Reference Range Interpretation Comments SODIUM (BEAKER) (test code = 381) 134 meq/L 135-148 L GLUCOSE-STAT [id number] 23:46:00 Test Item Value Reference Range Interpretation Comments GLUCOSE RANDOM (BEAKER) (test code 119 mg/dL 70-110 H = 652) HGB/HCT (H&H) - STAT [id number] 23:46:00 Test Item Value Reference Range Interpretation Comments HEMOGLOBIN (BEAKER) (test code = 8.8 g/dL 12.0-15.0 L 410) HEMATOCRIT (BEAKER) (test code = 26.0 % 36.0-45.0 L 411) OXYGEN SATURATION, [id number] 23:45:00 Test Item Value Reference Range Interpretation Comments O2 SATURATION (MEASURED) (BEAKER) 68.1 % (test code = 1455) POTASSIUM-STAT [id number] 23:45:00 Test Item Value Reference Range Interpretation Comments POTASSIUM (BEAKER) (test code = 5.5 meq/L 3.6-5.5 379) POCT-GLUCOSE [id number] 20:58:00 Test Item Value Reference Range Interpretation Comments POC-GLUCOSE METER 133 mg/dL 70-110 H TESTED AT [facility] 6720 (BEAKER) (test code = JULIANO [place] 1538) [address] POCT-GLUCOSE [id number] 17:58:00 Test Item Value Reference Range Interpretation Comments POC-GLUCOSE METER 210 mg/dL 70-110 H TESTED AT [facility] 6720 (BEAKER) (test code = JULIANO [place] 1538) [address] POCT-GLUCOSE [id number] 17:58:00 Test Item Value Reference Range Interpretation Comments POC-GLUCOSE METER 211 mg/dL 70-110 H TESTED AT [place] [address] (BEAKER) (test code = JULIANO Osborne [place] 1538) [address] POCT-GLUCOSE [id number] 17:58:00 Test Item Value Reference Range Interpretation Comments POC-GLUCOSE METER 232 mg/dL 70-110 H TESTED AT [place] [address] (BEAKER) (test code = JULIANO Osborne [place] 1538) [address] POCT-GLUCOSE [id number] 17:58:00 Test Item Value Reference Range Interpretation Comments POC-GLUCOSE METER 262 mg/dL 70-110 H TESTED AT [place] [address] (BEAKER) (test code = JULIANO Osborne [place] 1538) [address] BLOOD GAS, [id number] 17:01:00 Test Item Value Reference Range Interpretation [...] (test code = 1819) 60.0 % POTASSIUM-STAT [id number] 17:00:00 Test Item Value Reference Range Interpretation Comments POTASSIUM (BEAKER) (test code = 4.8 meq/L 3.6-5.5 379) POCT-GLUCOSE [id number] 15:52:00 Test Item Value Reference Range Interpretation Comments POC-GLUCOSE METER 267 mg/dL 70-110 H TESTED AT [place] [address] (BEAKER) (test code = JULIANO Osborne [place] 1538) [address] POCT-GLUCOSE [id number] 14:42:00 Test Item Value Reference Range Interpretation Comments POC-GLUCOSE METER 231 mg/dL 70-110 H TESTED AT [place] [address] (BEAKER) (test code = JULIANO [place] 1538) [address] BODY FLUID CELL COUNT WITH [id number] 14:41:00 Test Item Value Reference Range Interpretation [...] FLUID (BEAKER) EDTA Tube (test code = 4193) BASIC METABOLIC [id number] 14:11:00 Test Item Value Reference Range Interpretation [...] S NOT APPLICABLE FOR DIALYSIS PATIEN TS. [id number] 14:08:00 Test Item Value Reference Range Interpretation Comments PHOSPHORUS (BEAKER) (test code = 7.2 mg/dL 2.3-4.7 H 604) [id number] 14:08:00 Test Item Value Reference Range Interpretation Comments MAGNESIUM (BEAKER) (test code = 2.6 mg/dL 1.6-2.6 627) POCT-GLUCOSE [id number] 12:49:00 Test Item Value Reference Range Interpretation Comments POC-GLUCOSE METER 224 mg/dL 70-110 H TESTED AT [facility] 6720 [facility] (test code = JULIANO Osborne [facility] 1538) [address] POCT-GLUCOSE [id number] 12:49:00 Test Item Value Reference Range Interpretation Comments POC-GLUCOSE METER 248 mg/dL 70-110 H TESTED AT [facility] 67 ([facility]) (test code = JULIANO Osborne [facility] 1538) [address] RAD, CHEST, 1 VIEW, NON [id number] 12:32:00Reason for exam:->re-intubationShould this be performed at [...] pneumothorax is grossly unchanged. Signed: Mona White [facility] Verified Date/Time: 05/21/2017 12:32:08 Reading Location: [facility] Radiology Reading Room POTASSIUM-STAT [id number] 12:28:00 Test Item Value Reference Range Interpretation Comments POTASSIUM (BEAKER) (test code = 5.5 meq/L 3.6-5.5 379) BLOOD GAS, [id number] 12:28:00 Test Item Value Reference Range Interpretation [...] code = 1819) 100.0 % BLOOD GAS, [id number] 10:53:00 Test Item Value Reference Range Interpretation [...] 36.0 % RAD, CHEST, 1 VIEW, NON [id number] 08:46:00while patient is intubated or has chest [...] Verified Date/Time: 05/21/2017 08:46:27 Reading Location: [facility] Radiology Reading Room BLOOD GAS, [id number] 05:41:00 Test Item Value Reference Range Interpretation [...] (BEAKER) (test code = 1819) 40 CALCIUM, [id number] 04:35:00 Test Item Value Reference Range Interpretation Comments CALCIUM IONIZED (BEAKER) (test 1.13 mmol/L 1.12-1.27 code = 698) PH, BLOOD (BEAKER) (test code = 7.32 1810) BLOOD GAS, [id number] 04:28:00 Test Item Value Reference Range Interpretation [...] (BEAKER) (test code = 1819) 40.0 % [id number] 04:20:00 Test Item Value Reference Range Interpretation Comments PHOSPHORUS (BEAKER) (test code = 6.2 mg/dL 2.3-4.7 H 604) [id number] 04:20:00 Test Item Value Reference Range Interpretation Comments MAGNESIUM (BEAKER) (test code = 2.4 mg/dL 1.6-2.6 627) HEPATIC FUNCTION [id number] 04:20:00 Test Item Value Reference Range Interpretation [...] = 11 U/L 6-55 347) BASIC METABOLIC [id number] 04:20:00 Test Item Value Reference Range Interpretation [...] APPLICABLE FOR DIALYSIS PATIEN TS. OXYGEN SATURATION, [id number] 04:18:00 Test Item Value Reference Range Interpretation Comments O2 SATURATION (MEASURED) (BEAKER) 68.0 % (test code = 1455) LACTIC ACID, ARTERIAL, WHOLE [id number] 04:12:00 Test Item Value Reference Range Interpretation Comments LACTATE BLOOD ARTERIAL (2) 1.0 mmol/L 0.5-2.2 (BEAKER) (test code = 2874) Effective 08/02/2015: Units/Reference Range ChangeNew: 0.5-2.2 mmol/L Previous: 5-20 mg/dLCBC W/PLT COUNT & AUTO [id number] 04:00:00 Test Item Value Reference Range Interpretation [...] (BEAKER) (test code = 2801) BLOOD GAS, [id number] 00:06:00 Test Item Value Reference Range Interpretation [...] (BEAKER) (test code = 1819) 40.0 % [id number] 18:55:00 Test Item Value Reference Range Interpretation Comments PHOSPHORUS (BEAKER) (test code = 4.8 mg/dL 2.3-4.7 H 604) [id number] 18:55:00 Test Item Value Reference Range Interpretation Comments MAGNESIUM (BEAKER) (test code = 2.3 mg/dL 1.6-2.6 627) BASIC METABOLIC [id number] 18:55:00 Test Item Value Reference Range Interpretation [...] DIALYSIS PATIEN TS. LACTIC ACID, ARTERIAL, WHOLE [id number] 18:53:00 Test Item Value Reference Range Interpretation Comments LACTATE BLOOD 0.9 mmol/L 0.5-2.2 Specimen sligh tly ARTERIAL (2) (BEAKER) hemoly zed (test code = 2874) Effective 08/02/2015: Units/Reference Range ChangeNew: 0.5-2.2 mmol/L Previous: 5-20 mg/dLRAD, CHEST, 1 VIEW, NON [id number] 18:44:00Reason for exam:- >postop cardiacShould this be [...] atelectasis. Pneumonitis cannot be excluded. Signed: Miguel Bhaktaeport Verified Date/Time: 05/20/2017 18:44:30 Reading Location: [facility] C013W Consult Reading Room Electronically signed by: MIGUEL BHAKTA M.D. on05/20/2017 06:44 PMCBC W/PLT COUNT & AUTO [id number] 18:38:00 Test Item Value Reference Range Interpretation [...] (BEAKER) (test code = 2801) OXYGEN SATURATION, [id number] 18:36:00 Test Item Value Reference Range Interpretation Comments O2 SATURATION (MEASURED) (BEAKER) 72.5 % (test code = 1455) From distal port of IJ central venous catheterSODIUM NA-STAT [id number] 18:30:00 Test Item Value Reference Range Interpretation Comments SODIUM (BEAKER) (test code = 381) 132 meq/L 135-148 L HGB/HCT (H&H) - STAT [id number] 18:30:00 Test Item Value Reference Range Interpretation Comments HEMOGLOBIN (BEAKER) (test code = 9.4 g/dL 12.0-15.0 L 410) HEMATOCRIT (BEAKER) (test code = 28.0 % 36.0-45.0 L 411) GLUCOSE-STAT [id number] 18:30:00 Test Item Value Reference Range Interpretation Comments GLUCOSE RANDOM (BEAKER) (test code 159 mg/dL 70-110 H = 652) BLOOD GAS, [id number] 18:30:00 Test Item Value Reference Range Interpretation [...] (test code = 1819) 60.0 % CALCIUM, [id number] 18:30:00 Test Item Value Reference Range Interpretation Comments CALCIUM IONIZED (BEAKER) (test 0.94 mmol/L 1.12-1.27 L code = 698) PH, BLOOD (BEAKER) (test code = 7.34 1810) POTASSIUM-STAT [id number] 18:28:00 Test Item Value Reference Range Interpretation [...] (test 0.0 % 0.0-5.0 code = 1414) [id number] 17:53:00 Test Item Value Reference Range Interpretation Comments ACTIVATED CLOTTING TIME 103 sec TEST ED AT [place] [address] ([facility]) (test code = [place] 441) [address] [id number] 17:53:00 Test Item Value Reference Range Interpretation Comments ACTIVATED CLOTTING TIME 466 sec TEST ED AT [place] [address] [facility] (test code = [place] [address]) [address] [id number] 17:53:00 Test Item Value Reference Range Interpretation Comments ACTIVATED CLOTTING TIME 543 sec TEST ED AT [place] [address] ([facility]) (test code = [place] 441) [address] [id number] 17:53:00 Test Item Value Reference Range Interpretation Comments ACTIVATED CLOTTING TIME 549 sec TEST ED AT [place] [address] ([facility]) (test code = [place]O [place] 441) [address] [id number] 17:53:00 Test Item Value Reference Range Interpretation Comments ACTIVATED CLOTTING TIME 632 sec TEST ED AT [place] [address] ([facility]) (test code = [place] 441) [address] [id number] 17:53:00 Test Item Value Reference Range Interpretation Comments ACTIVATED CLOTTING TIME 494 sec TEST ED AT [place] [address] ([facility]) (test code = [place]O [place] 441) [address] [id number] 17:53:00 Test Item Value Reference Range Interpretation Comments ACTIVATED CLOTTING TIME 587 sec TEST ED AT [place] [address] ([facility]) (test code = [place]O [place] 441) [address] [id number] 17:53:00 Test Item Value Reference Range Interpretation Comments ACTIVATED CLOTTING TIME 626 sec TEST ED AT [place] [address] ([facility]) (test code = JULIANO [place] [facility]) [address] [id number] 17:52:00 Test Item Value Reference Range Interpretation Comments ACTIVATED CLOTTING TIME 808 sec TEST ED AT [place] [address] ([facility]) (test code = JULIANO [place] [facility]) [address] [id number] 16:54:00 Test Item Value Reference Range Interpretation Comments PARTIAL THROMBOPLASTIN TIME 40.2 seconds 22.5-36.0 H ([facility]) (test code = 760) [id number] 16:53:00 Test Item Value Reference Range Interpretation Comments FIBRINOGEN LEVEL ([facility]) (test 306 mg/dl 225-434 code = 658) PROTHROMBIN [id number] 16:50:00 Test Item Value Reference Range Interpretation Comments PROTIME ([facility]) (test code = 19.6 seconds 11.7-14.7 H 759) INR ([facility]) (test code = 370) 1.7 <=5.9 RECOMMENDED COUMADIN/WARFARIN INR THERAPY RANGESSTANDARD DOSE: 2.0 - 3.0 Includes: PROPHYLAXIS forvenous thrombosis, systemic embolization; TREATMENT for venous thrombosis and/or pulmonary embolus.HIGH RISK: Target INR is 2.5-3.5 for patients with mechanical heart valves.PLATELET [id number] 16:45:00 Test Item Value Reference Range Interpretation Comments PLATELET COUNT (BEAKER) (test 136 K/CU MM 150-450 L code = 756) POTASSIUM-STAT [id number] 16:15:00 Test Item Value Reference Range Interpretation Comments POTASSIUM (BEAKER) (test code = 4.9 meq/L 3.6-5.5 379) BLOOD GAS, [id number] 16:15:00 Test Item Value Reference Range Interpretation [...] code = 1819) 100.0 % SODIUM NA-STAT [id number] 16:15:00 Test Item Value Reference Range Interpretation Comments SODIUM (BEAKER) (test code = 381) 131 meq/L 135-148 L GLUCOSE-STAT [id number] 16:15:00 Test Item Value Reference Range Interpretation Comments GLUCOSE RANDOM (BEAKER) (test code 198 mg/dL 70-110 H = 652) HGB/HCT (H&H) - STAT [id number] 16:15:00 Test Item Value Reference Range Interpretation Comments HEMOGLOBIN (BEAKER) (test code = 7.5 g/dL 12.0-15.0 L 410) HEMATOCRIT (BEAKER) (test code = 22.0 % 36.0-45.0 L 411) CALCIUM, [id number] 16:14:00 Test Item Value Reference Range Interpretation Comments CALCIUM IONIZED (BEAKER) (test 0.91 mmol/L 1.12-1.27 L code = 698) PH, BLOOD (BEAKER) (test code = 7.39 1810) BLOOD GAS, [id number] 15:39:00 Test Item Value Reference Range Interpretation [...] code = 1819) 70.0 % SODIUM NA-STAT [id number] 15:39:00 Test Item Value Reference Range Interpretation Comments SODIUM (BEAKER) (test code = 381) 131 meq/L 135-148 L GLUCOSE-STAT [id number] 15:39:00 Test Item Value Reference Range Interpretation Comments GLUCOSE RANDOM (BEAKER) (test code 186 mg/dL 70-110 H = 652) HGB/HCT (H&H) - STAT [id number] 15:39:00 Test Item Value Reference Range Interpretation Comments HEMOGLOBIN (BEAKER) (test code = 7.5 g/dL 12.0-15.0 L 410) HEMATOCRIT (BEAKER) (test code = 22.0 % 36.0-45.0 L 411) POTASSIUM-STAT [id number] 15:38:00 Test Item Value Reference Range Interpretation Comments POTASSIUM (BEAKER) (test code = 5.3 meq/L 3.6-5.5 379) BLOOD GAS, [id number] 15:24:00 Test Item Value Reference Range Interpretation [...] code = 1819) 70.0 % SODIUM NA-STAT [id number] 15:24:00 Test Item Value Reference Range Interpretation Comments SODIUM (BEAKER) (test code = 381) 130 meq/L 135-148 L GLUCOSE-STAT [id number] 15:24:00 Test Item Value Reference Range Interpretation Comments GLUCOSE RANDOM (BEAKER) (test code 189 mg/dL 70-110 H = 652) HGB/HCT (H&H) - STAT [id number] 15:24:00 Test Item Value Reference Range Interpretation Comments HEMOGLOBIN (BEAKER) (test code = 6.7 g/dL 12.0-15.0 L 410) HEMATOCRIT (BEAKER) (test code = 20.0 % 36.0-45.0 L 411) POTASSIUM-STAT [id number] 15:23:00 Test Item Value Reference Range Interpretation Comments POTASSIUM (BEAKER) (test code = 5.4 meq/L 3.6-5.5 379) BLOOD GAS, [id number] 15:07:00 Test Item Value Reference Range Interpretation [...] code = 1819) 70.0 % SODIUM NA-STAT [id number] 15:07:00 Test Item Value Reference Range Interpretation Comments SODIUM (BEAKER) (test code = 381) 129 meq/L 135-148 L GLUCOSE-STAT [id number] 15:07:00 Test Item Value Reference Range Interpretation Comments GLUCOSE RANDOM (BEAKER) (test code 172 mg/dL 70-110 H = 652) HGB/HCT (H&H) - STAT [id number] 15:07:00 Test Item Value Reference Range Interpretation Comments HEMOGLOBIN (BEAKER) (test code = 7.1 g/dL 12.0-15.0 L 410) HEMATOCRIT (BEAKER) (test code = 21.0 % 36.0-45.0 L 411) POTASSIUM-STAT [id number] 15:04:00 Test Item Value Reference Range Interpretation Comments POTASSIUM (BEAKER) (test code = 5.0 meq/L 3.6-5.5 379) BLOOD GAS, [id number] 14:21:00 Test Item Value Reference Range Interpretation [...] code = 1819) 70.0 % SODIUM NA-STAT [id number] 14:21:00 Test Item Value Reference Range Interpretation Comments SODIUM (BEAKER) (test code = 381) 133 meq/L 135-148 L GLUCOSE-STAT [id number] 14:21:00 Test Item Value Reference Range Interpretation Comments GLUCOSE RANDOM (BEAKER) (test code 160 mg/dL 70-110 H = 652) HGB/HCT (H&H) - STAT [id number] 14:21:00 Test Item Value Reference Range Interpretation Comments HEMOGLOBIN (BEAKER) (test code = 7.5 g/dL 12.0-15.0 L 410) HEMATOCRIT (BEAKER) (test code = 22.0 % 36.0-45.0 L 411) POTASSIUM-STAT [id number] 14:20:00 Test Item Value Reference Range Interpretation Comments POTASSIUM (BEAKER) (test code = 4.7 meq/L 3.6-5.5 379) BLOOD GAS, [id number] 13:58:00 Test Item Value Reference Range Interpretation [...] code = 1819) 80.0 % SODIUM NA-STAT [id number] 13:58:00 Test Item Value Reference Range Interpretation Comments SODIUM (BEAKER) (test code = 381) 132 meq/L 135-148 L GLUCOSE-STAT [id number] 13:58:00 Test Item Value Reference Range Interpretation Comments GLUCOSE RANDOM (BEAKER) (test code 166 mg/dL 70-110 H = 652) HGB/HCT (H&H) - STAT [id number] 13:58:00 Test Item Value Reference Range Interpretation Comments HEMOGLOBIN (BEAKER) (test code = 7.5 g/dL 12.0-15.0 L 410) HEMATOCRIT (BEAKER) (test code = 22.0 % 36.0-45.0 L 411) POTASSIUM-STAT [id number] 13:57:00 Test Item Value Reference Range Interpretation Comments POTASSIUM (BEAKER) (test code = 4.7 meq/L 3.6-5.5 379) BLOOD GAS, [id number] 13:35:00 Test Item Value Reference Range Interpretation [...] (test code = 1819) 80.0 % GLUCOSE-STAT [id number] 13:35:00 Test Item Value Reference Range Interpretation Comments GLUCOSE RANDOM (BEAKER) (test code 130 mg/dL 70-110 H = 652) HGB/HCT (H&H) - STAT [id number] 13:35:00 Test Item Value Reference Range Interpretation Comments HEMOGLOBIN (BEAKER) (test code = 6.7 g/dL 12.0-15.0 L 410) HEMATOCRIT (BEAKER) (test code = 20.0 % 36.0-45.0 L 411) SODIUM NA-STAT [id number] 13:35:00 Test Item Value Reference Range Interpretation Comments SODIUM (BEAKER) (test code = 381) 133 meq/L 135-148 L POTASSIUM-STAT [id number] 13:34:00 Test Item Value Reference Range Interpretation Comments POTASSIUM (BEAKER) (test code = 4.2 meq/L 3.6-5.5 379) BLOOD GAS, [id number] 13:16:00 Test Item Value Reference Range Interpretation [...] code = 1819) 80.0 % SODIUM NA-STAT [id number] 13:16:00 Test Item Value Reference Range Interpretation Comments SODIUM (BEAKER) (test code = 381) 133 meq/L 135-148 L HGB/HCT (H&H) - STAT [id number] 13:16:00 Test Item Value Reference Range Interpretation Comments HEMOGLOBIN (BEAKER) (test code = 6.3 g/dL 12.0-15.0 L 410) HEMATOCRIT (BEAKER) (test code = 19.0 % 36.0-45.0 L 411) CALCIUM, [id number] 13:15:00 Test Item Value Reference Range Interpretation Comments CALCIUM IONIZED (BEAKER) (test 0.98 mmol/L 1.12-1.27 L code = 698) PH, BLOOD (BEAKER) (test code = 7.34 1810) BLOOD GAS, [id number] 13:15:00 Test Item Value Reference Range Interpretation [...] (test code = 1819) 80.0 % GLUCOSE-STAT [id number] 13:14:00 Test Item Value Reference Range Interpretation Comments GLUCOSE RANDOM (BEAKER) (test code = 92 mg/dL 70-110 652) POTASSIUM-STAT [id number] 13:14:00 Test Item Value Reference Range Interpretation Comments POTASSIUM (BEAKER) (test code = 3.9 meq/L 3.6-5.5 379) BLOOD GAS, [id number] 10:54:00 Test Item Value Reference Range Interpretation [...] 1819) 100.0 % HGB/HCT (H&H) - STAT [id number] 10:54:00 Test Item Value Reference Range Interpretation Comments HEMOGLOBIN (BEAKER) (test code = 9.3 g/dL 12.0-15.0 L 410) HEMATOCRIT (BEAKER) (test code = 27.0 % 36.0-45.0 L 411) SODIUM NA-STAT [id number] 10:54:00 Test Item Value Reference Range Interpretation Comments SODIUM (BEAKER) (test code = 381) 132 meq/L 135-148 L GLUCOSE-STAT [id number] 10:52:00 Test Item Value Reference Range Interpretation Comments GLUCOSE RANDOM (BEAKER) (test code = 94 mg/dL 70-110 652) POTASSIUM-STAT [id number] 10:52:00 Test Item Value Reference Range Interpretation Comments POTASSIUM (BEAKER) (test code = 4.0 meq/L 3.6-5.5 379) HEMOGLOBIN [id number] 09:50:00 Test Item Value Reference Range Interpretation Comments HEMOGLOBIN A1C (BEAKER) (test code = 10.6 % 4.3-6.1 H 368) PLATELET AGGREGATION: FUNCTION [id number] 08:27:00 Test Item Value Reference Range Interpretation Comments WEAK ADP 63 % 60-91 RESULT(BEAKER) (test code = 2135) PLATELET FUNCTION 60-100% indicates SCREEN INTERP (BEAKER) normal platelet (test code = 2173) function [id number] Toshia Post MD (BEAKER) (test code = (electronic signature) 8542) PLATELET COUNT AGG 198 K/CU MM 150-450 (BEAKER) (test code = 8216) for patients on clopidogrel in past two weeksPOCT-GLUCOSE [id number] 08:11:00 Test Item Value Reference Range Interpretation Comments POC-GLUCOSE METER 116 mg/dL 70-110 H TESTED AT [facility] 6720 (BEAKER) (test code = [place]IANO [place] 1538) [address] [id number] 07:10:00 Test Item Value Reference Range Interpretation Comments PHOSPHORUS (BEAKER) (test code = 4.5 mg/dL 2.3-4.7 604) [id number] 07:10:00 Test Item Value Reference Range Interpretation Comments MAGNESIUM (BEAKER) (test code = 2.1 mg/dL 1.6-2.6 627) BASIC METABOLIC [id number] 07:10:00 Test Item Value Reference Range Interpretation [...] = 700) CBC W/PLT COUNT & AUTO [id number] 06:46:00 Test Item Value Reference Range Interpretation [...] PERCENT (BEAKER) (test code = 2801) CALCIUM, [id number] 06:40:00 Test Item Value Reference Range Interpretation Comments CALCIUM IONIZED (BEAKER) (test 1.06 mmol/L 1.12-1.27 L code = 698) PH, BLOOD (BEAKER) (test code = 7.39 1810) POCT-GLUCOSE [id number] 23:22:00 Test Item Value Reference Range Interpretation Comments POC-GLUCOSE METER 165 mg/dL 70-110 H TESTED AT [facility] 6720 (BEAKER) (test code = J[place]IANO [place] 1538) [address] URINE PROTEIN ELECTROPHORESIS, [id number] 18:02:00 Test Item Value Reference Range Interpretation Comments PROTEIN, URINE 305 mg/dL 0-14 H (BEAKER) (test code = 1569) ALBUMIN URINE ELP 70.9 % (BEAKER) (test code = 1018) GAMMA GLOBULIN URINE 29.1 % (BEAKER) (test code = 1015) UPEP, ID-438 (BEAKER) No monoclonal bands (test code = 2604) detected. [id number] Rocio Galindo MD (BEAKER) (test code = (electronic signature) 7367) PROTEIN ELECTROPHORESIS, [id number] 17:57:00 Test Item Value Reference Range Interpretation [...] all globulin fractions. No monoclonal bands detected. [id number] Rocio Galindo MD (BEAKER) (test code = (electronic signature) 5088) PROTEIN TOTAL SERUM, 5.5 gm/dL 6.0-8.3 L SPEP (BEAKER) (test code = 2660) POCT-GLUCOSE [id number] 17:15:00 Test Item Value Reference Range Interpretation Comments POC-GLUCOSE METER 209 mg/dL 70-110 H TESTED AT [facility] 6720 (BEAKER) (test code = JULIANO Osborne [place] 1538) [address] BLOOD GAS, [id number] 15:54:00 Test Item Value Reference Range Interpretation [...] 36.0 % RAD, CHEST, 1 VIEW, NON [id number] 14:07:00Reason for exam:->SOB, hypoxemiaShould this be performed [...] Regan Cespedes Verified Date/Time: 05/19/2017 14:07:07 Reading Location:[facility] B1 C013W Consult Reading Room POCT-GLUCOSE [id number] 11:26:00 Test Item Value Reference Range Interpretation Comments POC-GLUCOSE METER 262 mg/dL 70-110 H TESTED AT [facility] 6720 (BEAKER) (test code = JULIANO Osborne [place] 1538) [address] POCT-GLUCOSE [id number] 07:37:00 Test Item Value Reference Range Interpretation Comments POC-GLUCOSE METER 170 mg/dL 70-110 H TESTED AT [facility] 6720 (BEAKER) (test code = [facility] [place] 1538) [address] CALCIUM, [id number] 06:06:00 Test Item Value Reference Range Interpretation Comments CALCIUM IONIZED (BEAKER) (test 1.05 mmol/L 1.12-1.27 L code = 698) PH, BLOOD (BEAKER) (test code = 7.41 1810) [id number] 05:38:00 Test Item Value Reference Range Interpretation Comments PHOSPHORUS (BEAKER) (test code = 3.9 mg/dL 2.3-4.7 604) [id number] 05:38:00 Test Item Value Reference Range Interpretation Comments MAGNESIUM (BEAKER) (test code = 2.2 mg/dL 1.6-2.6 627) BASIC METABOLIC [id number] 05:38:00 Test Item Value Reference Range Interpretation [...] PATIEN TS. CBC W/PLT COUNT & AUTO [id number] 05:09:00 Test Item Value Reference Range Interpretation [...] PERCENT (BEAKER) (test code = 2801) POCT-GLUCOSE [id number] 22:08:00 Test Item Value Reference Range Interpretation Comments POC-GLUCOSE METER 263 mg/dL 70-110 H TESTED AT [facility] 67 (BEAKER) (test code = [facility] 1538) [address] POCT-GLUCOSE [id number] 17:20:00 Test Item Value Reference Range Interpretation Comments POC-GLUCOSE METER 233 mg/dL 70-110 H TESTED AT [place] [address] [facility] (test code = [facility] 1538) [address] POCT-GLUCOSE [id number] 08:28:00 Test Item Value Reference Range Interpretation Comments POC-GLUCOSE METER 154 mg/dL 70-110 H TESTED AT [place] [address] (BEAKER) (test code = [facility] 1538) [address] BASIC METABOLIC [id number] 06:41:00 Test Item Value Reference Range Interpretation [...] S NOT APPLICABLE FOR DIALYSIS PATIEN TS. [id number] 06:35:00 Test Item Value Reference Range Interpretation Comments PHOSPHORUS (BEAKER) (test code = 4.1 mg/dL 2.3-4.7 604) [id number] 06:35:00 Test Item Value Reference Range Interpretation Comments MAGNESIUM (BEAKER) (test code = 2.1 mg/dL 1.6-2.6 627) CALCIUM, [id number] 06:22:00 Test Item Value Reference Range Interpretation Comments CALCIUM IONIZED (BEAKER) (test 1.10 mmol/L 1.12-1.27 L code = 698) PH, BLOOD (BEAKER) (test code = 7.38 1810) CBC W/PLT COUNT & AUTO [id number] 06:04:00 Test Item Value Reference Range Interpretation [...] PERCENT (BEAKER) (test code = 2801) POCT-GLUCOSE [id number] 03:44:00 Test Item Value Reference Range Interpretation Comments POC-GLUCOSE METER 220 mg/dL 70-110 H TESTED AT [place] [address] ([facility]) (test code = [facility] 1538) [address] POCT-GLUCOSE [id number] 18:27:00 Test Item Value Reference Range Interpretation Comments POC-GLUCOSE METER 256 mg/dL 70-110 H TESTED AT [place] [address] ([facility]) (test code = [facility] 1538) [address] POCT-GLUCOSE [id number] 15:45:00 Test Item Value Reference Range Interpretation Comments POC-GLUCOSE METER 278 mg/dL 70-110 H TESTED AT [place] [address] ([facility]) (test code = [facility] [employer] [facility] 1538) [address] POCT-GLUCOSE [id number] 13:22:00 Test Item Value Reference Range Interpretation Comments POC-GLUCOSE METER 278 mg/dL 70-110 H TESTED AT [place] [address] ([facility]) (test code = [facility] 1538) [address] PLATELET AGGREGATION: FUNCTION [id number] 13:18:00 Test Item Value Reference Range Interpretation Comments WEAK ADP 66 % 60-91 RESULT([facility]) (test code = 2135) PLATELET FUNCTION 60-100% indicates SCREEN INTERP (BEAKER) normal platelet (test code = 2173) function [id number] Rigoberto Duenas MD (BEAKER) (test code = (electronic signature) 4462) PLATELET COUNT AGG 204 K/CU MM 150-450 (BEAKER) (test code = 7242) POCT-GLUCOSE [id number] 08:27:00 Test Item Value Reference Range Interpretation Comments POC-GLUCOSE METER 189 mg/dL 70-110 H TESTED AT [facility] 6720 (BEAKER) (test code = [place]IASAMANDA [place] 1538) [address] CALCIUM, [id number] 06:12:00 Test Item Value Reference Range Interpretation Comments CALCIUM IONIZED (BEAKER) (test 1.07 mmol/L 1.12-1.27 L code = 698) PH, BLOOD (BEAKER) (test code = 7.36 1810) [id number] 05:43:00 Test Item Value Reference Range Interpretation Comments PHOSPHORUS (BEAKER) (test code = 3.6 mg/dL 2.3-4.7 604) [id number] 05:43:00 Test Item Value Reference Range Interpretation Comments MAGNESIUM (BEAKER) (test code = 2.1 mg/dL 1.6-2.6 627) BASIC METABOLIC [id number] 05:43:00 Test Item Value Reference Range Interpretation [...] PATIEN TS. CBC W/PLT COUNT & AUTO [id number] 05:05:00 Test Item Value Reference Range Interpretation [...] EOSINOPHILS ABSOLUTE COUNT 0.27 K/ L 0.04-0.36 ([facility]) (test code = 416) BASOPHILS ABSOLUTE COUNT ([facility]) 0.06 K/ L 0.01-0.08 (test code = 417) IMMATURE GRANULOCYTES-RELATIVE 0 % 0-1 PERCENT ([facility]) (test code = 2801) POCT-GLUCOSE [id number] 21:32:00 Test Item Value Reference Range Interpretation Comments POC-GLUCOSE METER 176 mg/dL 70-110 H TESTED AT [place] [address] ([facility]) (test code = [facility] Dylon [facility] 1538) [address] POCT-GLUCOSE [id number] 20:27:00 Test Item Value Reference Range Interpretation Comments POC-GLUCOSE METER 161 mg/dL 70-110 H TESTED AT [place] [address] ([facility]) (test code = [facility] 1538) [address] POCT-GLUCOSE [id number] 18:23:00 Test Item Value Reference Range Interpretation Comments POC-GLUCOSE METER 185 mg/dL 70-110 H TESTED AT [place] [address] ([facility]) (test code = [facility] 1538) [address] POCT-GLUCOSE [id number] 13:26:00 Test Item Value Reference Range Interpretation Comments POC-GLUCOSE METER 282 mg/dL 70-110 H TESTED AT [place] [address] ([facility]) (test code = [facility] 1538) [address] URINE [id number] 10:12:00 Test Item Value Reference Range Interpretation Comments CULTURE ([facility]) (test >100,000 col/mL skin code = 1095) todd POCT-GLUCOSE [id number] 09:01:00 Test Item Value Reference Range Interpretation Comments POC-GLUCOSE METER 268 mg/dL 70-110 H TESTED AT [place] [address] ([facility]) (test code = [facility] 1538) [address] CALCIUM, [id number] 05:39:00 Test Item Value Reference Range Interpretation Comments CALCIUM IONIZED ([facility]) (test 0.84 mmol/L 1.12-1.27 L code = 698) PH, BLOOD ([facility]) (test code = 7.35 1810) BASIC METABOLIC [id number] 05:07:00 Test Item Value Reference Range Interpretation Comments SODIUM ([facility]) 135 meq/L 136-145 L (test code = [...] S NOT APPLICABLE FOR DIALYSIS PATIEN TS. [id number] 05:06:00 Test Item Value Reference Range Interpretation Comments PHOSPHORUS (BEAKER) (test code = 3.2 mg/dL 2.3-4.7 604) [id number] 05:06:00 Test Item Value Reference Range Interpretation Comments MAGNESIUM (BEAKER) (test code = 2.3 mg/dL 1.6-2.6 627) CBC W/PLT COUNT & AUTO [id number] 04:42:00 Test Item Value Reference Range Interpretation [...] = 2801) RHEUMATOID FACTOR AB, REFLEX TO [id number] 01:52:00 Test Item Value Reference Range Interpretation Comments RHEUMATOID FACTOR (BEAKER) (test Negative code = 573) POCT-GLUCOSE [id number] 21:57:00 Test Item Value Reference Range Interpretation Comments POC-GLUCOSE METER 105 mg/dL 70-110 TESTED AT [facility] 6720 ([facility]) (test code = JULIANO Osborne [facility] 8973) [address] POCT-GLUCOSE [id number] 18:11:00 Test Item Value Reference Range Interpretation Comments POC-GLUCOSE METER 312 mg/dL 70-110 H Notified R Geovanna PIERRE/TESTED ([facility]) (test code = AT [facility] 67Jill MANCINI 5520) [facility] 5939 0 PET, CARDIAC PERFUSION MULTIPLE STUDIES, REST AND [id number] 16:28:00 Reason for exam:->pvcs, known cadFINAL REPORT PROCEDURE: Rest/Stress MYOCARDIAL PERFUSION PET with regadenoson\\XA9\\ CPT CODE: 66953 INDICATION: Defined extent and severity of known [...] is 23%. LVEF at stress is 36%. Resolution Manager CT images revealed a right pleural [...] pleural and pericardial effusions. 7. No previous [facility] study for comparison. NONINVASIVE RISK STRATIFICATION: The above findings are considered high risk (>3% annual mortality rate) based on the following criteria: - Severe resting left ventricular dysfunction (LVEF 35%)- Stress-induced large perfusion defect (particularly if anterior)(JACC. 2012;59(9):857-81.) Signed: Natan Whaley Verified Date/Time: 05/15/2017 16:28:12 Reading Location: [address] ReadingRoom RAD, CHEST, 1 VIEW, NON [id number] 15:56:00Reason for exam:->SOBShould this be performed at [...] [facility] iology Reading Room POCT-GLUCOSE [id number] 12:54:00 Test Item Value Reference Range Interpretation Comments POC-GLUCOSE METER 308 mg/dL 70-110 H Notified Dylon Austin MD/NATHAN (ROBERT) (test code = AT [facility] 67[address] [facility] 7703 0 U/S, RENAL WITH [id number] 11:04:00Reason for exam:->tracy, htnShould this be performed [...] MDReport Verified Date/Time: 05/15/2017 11:04:01 Reading Location: [address] Ultrasound Reading Room ANA TITER AND [id number] 10:57:00 Test Item Value Reference Range Interpretation Comments ROGER TITER (BEAKER) (test code = :160 1541) ROGER PATTERN (BEAKER) (test code = Speckled 1781) ANTI-NUCLEAR ANTIBODY (ROGER)2017-05-15 10:56:00 Test Item Value Reference Range Interpretation Comments ANTI-NUCLEAR ANTIBODY (ROGER) (BEAKER) Positive Negative A (test code = 418) CALCIUM, [id number] 06:00:00 Test Item Value Reference Range Interpretation Comments CALCIUM IONIZED (BEAKER) (test 1.07 mmol/L 1.12-1.27 L code = 698) PH, BLOOD (BEAKER) (test code = 7.28 1810) HEPATITIS PANEL, [id number] 05:01:00 Test Item Value Reference Range Interpretation Comments HEPATITIS A IGM ANTIBODY (BEAKER) Nonreactive Nonreactive (test code = 498) HEPATITIS B CORE IGM ANTIBODY Nonreactive Nonreactive (BEAKER) (test code = 645) HEPATITIS C ANTIBODY (BEAKER) Nonreactive Nonreactive (test code = 367) HEPATITIS B SURFACE ANTIGEN (2) Nonreactive Nonreactive (BEAKER) (test code = 2585) BASIC METABOLIC [id number] 04:48:00 Test Item Value Reference Range Interpretation [...] NOT APPLICABLE FOR DIALYSIS PATIEN TS. URIC [id number] 04:41:00 Test Item Value Reference Range Interpretation Comments URIC ACID (BEAKER) (test code = 10.3 mg/dL 2.6-7.2 H 773) [id number] 04:41:00 Test Item Value Reference Range Interpretation Comments MAGNESIUM (BEAKER) (test code = 2.0 mg/dL 1.6-2.6 627) [id number] 04:41:00 Test Item Value Reference Range Interpretation Comments PHOSPHORUS (BEAKER) (test code = 4.2 mg/dL 2.3-4.7 604) COMPLEMENT COMPONENT [id number] 04:38:00 Test Item Value Reference Range Interpretation Comments C4 COMPLEMENT (BEAKER) (test code = 28 mg/dL 15-57 394) COMPLEMENT COMPONENT [id number] 04:38:00 Test Item Value Reference Range Interpretation Comments C3 COMPLEMENT (BEAKER) (test code = 103 mg/dL 82-193 393) CBC W/PLT COUNT & AUTO [id number] 04:22:00 Test Item Value Reference Range Interpretation [...] PERCENT (BEAKER) (test code = 2801) POCT-GLUCOSE [id number] 21:46:00 Test Item Value Reference Range Interpretation Comments POC-GLUCOSE METER 173 mg/dL 70-110 H TESTED AT [place] [address] ([facility]) (test code = [facility] Dylon [facility] 1538) [address] POCT-GLUCOSE [id number] 21:46:00 Test Item Value Reference Range Interpretation Comments POC-GLUCOSE METER 154 mg/dL 70-110 H TESTED AT [place] [address] ([facility]) (test code = [facility] Dylon [facility] 1538) [address] POCT-GLUCOSE [id number] 18:17:00 Test Item Value Reference Range Interpretation Comments POC-GLUCOSE METER 175 mg/dL 70-110 H TESTED AT [place] [address] ([facility]) (test code = [facility] Dylon [facility] 1538) [address] RAD, CHEST, 1 VIEW, NON [id number] 14:56:00Reason for exam:->SOBShould this be performed at the bedside?->YesFINAL REPORT INDICATION: SOB COMPARISON: May 13, 2017 TECHNIQUE: Chest radiograph, single view, portable technique. FINDINGS / IMPRESSION: Enlarged heart shadow, small rightpleural effusion, and pulmonary venous congestion, again demonstrated. No pneumothorax or consolidation. Osseous structures unremarkable. Signed: Thania Dwyereport Verified Date/Time: 05/14/2017 14:56:58 Reading Location: [facility] Mammo Reading Room POCT-GLUCOSE [id number] 12:18:00 Test Item Value Reference Range Interpretation Comments POC-GLUCOSE METER 313 mg/dL 70-110 H TESTED AT [facility] 6720 (BEAKER) (test code = [place]IANO [place] 1538) [address] HIV-1 ANTIGEN WITH HIV-1/2 [id number] 12:07:00 Test Item Value Reference Range Interpretation Comments HIV-1 ANTIGEN WITH HIV 1\\T\\2 Nonreactive Nonreactive ANTIBODY (2) (BEAKER) (test code = 2586) CALCIUM, [id number] 06:37:00 Test Item Value Reference Range Interpretation Comments CALCIUM IONIZED (BEAKER) (test 1.08 mmol/L 1.12-1.27 L code = 698) PH, BLOOD (BEAKER) (test code = 7.25 1810) BASIC METABOLIC [id number] 06:26:00 Test Item Value Reference Range Interpretation [...] pg/mL 0-100 H (test code = 700) [id number] 06:25:00 Test Item Value Reference Range Interpretation Comments PHOSPHORUS (BEAKER) (test code = 5.7 mg/dL 2.3-4.7 H 604) [id number] 06:25:00 Test Item Value Reference Range Interpretation Comments MAGNESIUM (BEAKER) (test code = 1.5 mg/dL 1.6-2.6 L 627) CBC W/PLT COUNT & AUTO [id number] 06:07:00 Test Item Value Reference Range Interpretation [...] PERCENT (BEAKER) (test code = 2801) POCT-GLUCOSE [id number] 22:38:00 Test Item Value Reference Range Interpretation Comments POC-GLUCOSE METER 262 mg/dL 70-110 H TESTED AT [facility] 6720 (BEAKER) (test code = J[place]IANO [place] 1538) [address] PROTEIN, RANDOM [id number] 22:18:00 Test Item Value Reference Range Interpretation Comments PROTEIN, URINE (BEAKER) (test code 641 mg/dL 0-14 H = 1569) CREATININE, RANDOM [id number] 22:07:00 Test Item Value Reference Range Interpretation Comments CREATININE URINE (BEAKER) (test 124.9 mg/dL code = 375) Reference Range: No NormalsURINALYSIS W/ [id number] 22:03:00 Test Item Value Reference Range Interpretation [...] 1585) SOURCE(BEAKER) (test code = Urine, Voided 1227) [id number] 19:49:00 Test Item Value Reference Range Interpretation Comments SODIUM (BEAKER) (test 136 meq/L 136-145 code = 381) POTASSIUM (BEAKER) 5.1 meq/L 3.5-5.1 Specimen slightly (test code = 379) hemolyzed CHLORIDE (BEAKER) 104 meq/L 98-107 (test code = 382) CO2 (BEAKER) (test 25 meq/L 22-29 code = 355) Call if K > 5POCT-GLUCOSE [id number] 11:37:00 Test Item Value Reference Range Interpretation Comments POC-GLUCOSE METER 293 mg/dL 70-110 H TESTED AT [facility] 6720 (BEAKER) (test code = [place]IANO [place] 1538) [address] RAD, CHEST, 1 VIEW, NON [id number] 10:22:00Reason for exam:->SOBShould this be performed at the bedside?->YesFINAL REPORT Chest one view Discussion: There is cardiomegaly and interstitial congestion. A small right-sided effusion is noted. No pneumothorax. IMPRESSIONS: Suspected CHF. Signed: Jeannette Nava Verified Date/Time: 05/13/2017 10:22:34 Reading Location: [facility] Radiology Reading Room POCT-GLUCOSE METER 2017-05-13 08:34:00 Test Item Value Reference Range Interpretation Comments POC-GLUCOSE METER 178 mg/dL 70-110 H TESTED AT [facility] 6720 (BEAKER) (test code = JULIANO Osborne [place] 1538) [address] POCT-GLUCOSE [id number] 06:53:00 Test Item Value Reference Range Interpretation Comments POC-GLUCOSE METER 167 mg/dL 70-110 H TESTED AT [facility] 6720 (BEAKER) (test code = JULIANO Osborne [place] 1538) [address] [id number] 04:48:00 Test Item Value Reference Range Interpretation Comments BLOOD UREA NITROGEN (BEAKER) (test 36 mg/dL 7-21 H code = 354) [id number] 04:48:00 Test Item Value Reference Range Interpretation Comments SODIUM (BEAKER) (test code = 381) 139 meq/L 136-145 POTASSIUM (BEAKER) (test code = 5.2 meq/L 3.5-5.1 H 379) CHLORIDE (BEAKER) (test code = 382) 109 meq/L 98-107 H CO2 (BEAKER) (test code = 355) 23 meq/L 22-29 [id number] 04:48:00 Test Item Value Reference Range Interpretation [...] WBC 0-0 (BEAKER) (test code = 413) [id number] 23:29:00 Test Item Value Reference Range Interpretation Comments ACTIVATED CLOTTING TIME 136 sec TEST ED AT [place] [address] [facility] (test code = JULAINO Osborne [place] [address]) [address] [id number] 20:13:00 Test Item Value Reference Range Interpretation Comments ACTIVATED CLOTTING TIME 175 sec TEST ED AT [place] [address] ([facility]) (test code = JULIANO Osborne [place] [address]) [address] [id number] 18:36:00 Test Item Value Reference Range Interpretation Comments ACTIVATED CLOTTING TIME 202 sec TEST ED AT [place] [address] ([facility] (test code = JULIANO Osborne [place] [address]) [address] [id number] 18:03:00 Test Item Value Reference Range Interpretation Comments ACTIVATED CLOTTING TIME 208 sec TEST ED AT [place] [address] ([facility] (test code = JULIANO Osborne [place] [address]) [address] BASIC METABOLIC [id number] 11:57:00 Test Item Value Reference Range Interpretation [...] NOT APPLICABLE FOR DIALYSIS PATIEN TS. PROTHROMBIN [id number] 11:15:00 Test Item Value Reference Range Interpretation [...] if on CoumadinCBC W/PLT COUNT & AUTO [id number] 11:01:00 Test Item Value Reference Range Interpretation [...] PERCENT (BEAKER) (test code = 2801) POCT-GLUCOSE [id number] 12:35:00 Test Item Value Reference Range Interpretation Comments POC-GLUCOSE METER 249 mg/dL 70-110 H TESTED AT [place] [address] ([facility]) (test code = [facility] Dylon [facility] 1538) [id number] POCT-GLUCOSE [id number] 09:10:00 Test Item Value Reference Range Interpretation Comments POC-GLUCOSE METER 155 mg/dL 70-110 H TESTED AT [place] [address] ([facility]) (test code = [facility] 1538) [address] BASIC METABOLIC [id number] 05:39:00 Test Item Value Reference Range Interpretation [...] S NOT APPLICABLE FOR DIALYSIS PATIEN TS. [id number] 05:27:00 Test Item Value Reference Range Interpretation Comments PHOSPHORUS (BEAKER) (test code = 5.0 mg/dL 2.3-4.7 H 604) [id number] 05:27:00 Test Item Value Reference Range Interpretation Comments MAGNESIUM (BEAKER) (test code = 1.6 mg/dL 1.6-2.6 627) POCT-GLUCOSE [id number] 05:25:00 Test Item Value Reference Range Interpretation Comments POC-GLUCOSE METER 144 mg/dL 70-110 H TESTED AT [place] [address] ([facility]) (test code = [facility] 1538) [id number] PROTHROMBIN [id number] 04:58:00 Test Item Value Reference Range Interpretation Comments PROTIME (BEAKER) (test code = 14.2 seconds 11.7-14.7 759) INR (SERVANDOAKER) (test code = 370) 1.1 <=5.9 RECOMMENDED COUMADIN/WARFARIN INR THERAPY RANGESSTANDARD DOSE: 2.0 - 3.0 Includes: PROPHYLAXIS forvenous thrombosis, systemic embolization; TREATMENT for venous thrombosis and/or pulmonary embolus.HIGH RISK: Target INR is 2.5-3.5 for patients with mechanical heart valves.POCT-GLUCOSE [id number] 23:55:00 Test Item Value Reference Range Interpretation Comments POC-GLUCOSE METER 86 mg/dL 70-110 TESTED AT [place] [address] ([facility]) (test code = [facility] [employer] [facility] [address] 1538) B-TYPE NATRIURETIC FACTOR (BNP)2017-04-22 18:13:00 Test Item Value Reference Range Interpretation Comments B-TYPE NATRIURETIC PEPTIDE 1203 pg/mL 0-100 H ([facility]) (test code = 700) POCT-GLUCOSE [id number] 17:36:00 Test Item Value Reference Range Interpretation Comments POC-GLUCOSE METER 259 mg/dL 70-110 H TESTED AT [facility] 6720 (BEAKER) (test code = [place]IANO [place] 1538) [address] HEMOGLOBIN [id number] 14:24:00 Test Item Value Reference Range Interpretation Comments HEMOGLOBIN A1C (BEAKER) (test code = 10.5 % 4.3-6.1 H 368) POCT-GLUCOSE [id number] 12:34:00 Test Item Value Reference Range Interpretation Comments POC-GLUCOSE METER 207 mg/dL 70-110 H TESTED AT [facility] 6720 (BEAKER) (test code = [facility] 1538) [address] [id number] 07:53:00 Test Item Value Reference Range Interpretation Comments PHOSPHORUS (BEAKER) (test code = 3.9 mg/dL 2.3-4.7 604) [id number] 07:53:00 Test Item Value Reference Range Interpretation Comments MAGNESIUM (BEAKER) (test code = 1.6 mg/dL 1.6-2.6 627) BASIC METABOLIC [id number] 07:53:00 Test Item Value Reference Range Interpretation [...] NOT APPLICABLE FOR DIALYSIS PATIEN TS. TROPONIN [id number] 07:29:00 Test Item Value Reference Range Interpretation Comments TROPONIN I ([facility]) (test code = 0.05 ng/mL 0.00-0.03 H [...] acidosis, acute neurological disease, and persistent tachyarrhythmia.PROTHROMBIN [id number] 07:01:00 Test Item Value Reference Range Interpretation Comments PROTIME ([facility] (test code = 13.8 seconds 11.7-14.7 759) INR ([facility]) (test code = 370) 1.1 <=5.9 RECOMMENDED COUMADIN/WARFARIN INR THERAPY RANGESSTANDARD DOSE: 2.0 - 3.0 Includes: PROPHYLAXIS forvenous thrombosis, systemic embolization; TREATMENT for venous thrombosis and/or pulmonary embolus.HIGH RISK: Target INR is 2.5-3.5 for patients with mechanical heart valves.POCT-GLUCOSE [id number] 06:28:00 Test Item Value Reference Range Interpretation Comments POC-GLUCOSE METER 198 mg/dL 70-110 H TESTED AT [facility] 6720 ([facility]) (test code = [place] 1538) [address] CREATINE KINASE (CK), TOTAL AND [id number] 00:49:00 Test Item Value Reference Range Interpretation Comments CREATINE KINASE TOTAL ([facility]) 69 U/L 29-200 (test code = 380) CREATINE KINASE-MB ([facility]) (test 4.3 ng/mL 0.0-6.6 code = 750) CREATINE KINASE-MB INDEX ([facility]) 6.2 % (test code = 395) CK-MB Reference Range:<6.7 Normal6.7-10.0 Borderline>10.0 AbnormalTROPONIN [id number] 00:49:00 Test Item Value Reference Range Interpretation Comments TROPONIN I ([facility]) (test code = 0.05 ng/mL 0.00-0.03 H [...] acidosis, acute neurological disease, and persistent tachyarrhythmia.POCT-GLUCOSE [id number] 20:44:00 Test Item Value Reference Range Interpretation Comments POC-GLUCOSE METER 269 mg/dL 70-110 H TESTED AT [facility] 67 ([facility] (test code = [facility] [employer] [facility] 1538) [id number]
[2020-12-05 10:53] LABS: Absolute Lymphocytes (CBC) 1.6 K/uL (0.7-4.9); Hematocrit 37.8 % (36.0-45.0); Lymphocytes % 23.2 % (15.3-44.8); MPV 6.5 fL (7.6-11.3); RBC Red Blood Cell Count 4.33 M/uL (3.86-4.86)
[2020-12-05 10:54] LABS: Protime INR 1.23
--- NOTE | 2020-12-05 11:20 | RAD REPORT ---
EXAM DESCRIPTION: RAD - Chest Single View - 12/05/2020 11:12 am CLINICAL HISTORY: chest pain. Missed dialysis COMPARISON: Chest Single View dated 11/07/2020; Chest Single View dated 10/10/2020; Chest Single View dated 10/05/2020; Chest Single View dated 09/21/2020 FINDINGS: Lines: Left IJ approach dialysis catheter. Lungs: Diffuse prominence of the pulmonary interstitium. Pleural: Moderate right pleural effusion. Cardiac: The heart size is within normal limits. Bones: No acute fractures. Other: The patient is significantly rotated. IMPRESSION: Moderate right effusion as well as some prominence of the pulmonary vasculature likely r epresenting vascular congestion versus mild edema.
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
--- NOTE | 2020-12-05 11:52 | EDPHYS ---
Physician Documentation [facility] Name: Christy Priest Age: 65 yrs Sex: Female : 1955 Arrival Date: 12/05/2020 Time: 09:56 Bed 18 Private MD: ED Physician Alessio Parry HPI: 12/05 11:38 This 65 yrs old Female presents to ER via EMS with complaints of Chest Pain > carlos 30 y/o. 11:38 The patient or guardian reports chest pain that is located primarily in the substernal carlos area. Onset: this morning. The pain does not radiate. Historical: - Immunization history:: Adult Immunizations up to date, Client reports having NOT received the Covid vaccine. - Social history:: Smoking status: Patient denies any tobacco usage or history of. ROS: 11:46 Constitutional: Negative for fever, chills, and weight loss, Eyes: Negative for injury, carlos pain, redness, and discharge, ENT: Negative for injury, pain, and discharge, Neck: Negative for injury, pain, and swelling, Respiratory: Negative for shortness of breath, cough, wheezing, and pleuritic chest pain, Abdomen/GI: Negative for abdominal pain, nausea, vomiting, diarrhea, and constipation, Back: Negative for injury and pain, : Negative for injury, bleeding, discharge, and swelling, MS/Extremity: Negative for injury and deformity, Skin: Negative for injury, rash, and discoloration, Neuro: Negative for headache, weakness, numbness, tingling, and seizure, Psych: Negative for depression, anxiety, suicide ideation, homicidal ideation, and hallucinations, Allergy/Immunology: Negative for hives, rash, and allergies, Endocrine: Negative for neck swelling, polydipsia, polyuria, polyphagia, and marked weight changes, Hematologic/Lymphatic: Negative for swollen nodes, abnormal bleeding, and unusual bruising. 11:46 Cardiovascular: Positive for chest pain, of the chest. Exam: 11:46 Constitutional: This is a well developed, well nourished patient who is awake, alert, carlos and in no acute distress. Head/Face: Normocephalic, atraumatic. Eyes: Pupils equal round and reactive to light, extra-ocular motions intact. Lids and lashes normal. Conjunctiva and sclera are non-icteric and not injected. Cornea within normal limits. Periorbital areas with no swelling, redness, or edema. ENT: Nares patent. No nasal discharge, no septal abnormalities noted. Tympanic membranes are normal and external auditory canals are clear. Oropharynx with no redness, swelling, or masses, exudates, or evidence of obstruction, uvula midline. Mucous membranes moist. Neck: Trachea midline, no thyromegaly or masses palpated, and no cervical lymphadenopathy. Supple, full range of motion without nuchal rigidity, or vertebral point tenderness. No Meningismus. Chest/axilla: Normal chest wall appearance and motion. Nontender with no deformity. No lesions are appreciated. Cardiovascular: Regular rate and rhythm with a normal S1 and S2. No gallops, murmurs, or rubs. Normal PMI, no JVD. No pulse deficits. Respiratory: Lungs have equal breath sounds bilaterally, clear to auscultation and percussion. No rales, rhonchi or wheezes noted. No increased work of breathing, no retractions or nasal flaring. Abdomen/GI: Soft, non-tender, with normal bowel sounds. No distension or tympany. No guarding or rebound. No evidence of tenderness throughout. Back: No spinal tenderness. No costovertebral tenderness. Full range of motion. Skin: Warm, dry with normal turgor. Normal color with no rashes, no lesions, and no evidence of cellulitis. MS/ Extremity: Pulses equal, no cyanosis. Neurovascular intact. Full, normal range of motion. Neuro: Awake and alert, GCS 15, oriented to person, place, time, and situation. Cranial nerves II-XII grossly intact. Motor strength 5/5 in all extremities. Sensory grossly intact. Cerebellar exam normal. Normal gait. Psych: Awake, alert, with orientation to person, place and time. Behavior, mood, and affect are within normal limits. 13:06 ECG was reviewed by the Attending Physician. [facility] Vital Signs: 09:56 BP 157 / 90; Pulse 75; Resp 18; Temp 97.6; Pulse Ox 100% on R/A; Weight 75.75 kg; Pain ch5 7/10; 10:11 BP 157 / 90; Pulse 75; Resp 20; Temp 97.6; Pulse Ox 18% ; Pain 7/10; ch5 12:27 BP 163 / 83; Pulse 73; Resp 20; Pulse Ox 100% ; Pain 5/10; ch5 MDM: 10:37 Patient medically screened. carlos 13:01 Differential diagnosis: abnormal EKG, acute myocardial infarction, acute pericarditis, carlos coronary artery disease congestive heart failure pancreatitis, stable angina, unstable angina. HEART Score: History: Highly Suspicious (2), ECG: Non specific repolarization disturbance / LBTB / PM (1), Age: > 45 and < 65 years (1), Risk Factors: > or = 3 Risk factors for atherosclerotic disease (2), [Hypercholesterolemia] [Hypertension] [DM] [+ Family HX] [Obesity] Troponin: < or = 1 x Normal Limit (0), Total Score = 6. The patient was given aspirin in the Emergency Department. The patient's deep vein thrombosis risk score was calculated as follows: Total Score: 0. This patient was found to be at low risk for a deep vein thrombosis by using the Well's assessment criteria. The patient's pulmonary embolism risk score was calculated as follows: Total Score: 0-2 points. This patient was found to be at low risk for a pulmonary embolism by using the Well's assessment criteria. SYMONE Risk Score: 1 - patient's age is greater or equal to 65 years, 1 - Three or more CAD risk factors, 1- Known CAD, 1 - ASA use in past 7 days, TOTAL SCORE = 4. Data reviewed: vital signs, nurses notes, lab test result(s), EKG, radiologic studies, plain films. Data interpreted: monitor tech: rate is 75 beats/min, rhythm is regular, Pulse oximetry: on room air is 98 %. Test interpretation: by ED physician or midlevel provider: ECG, plain radiologic studies. Counseling: I had a detailed discussion with the patient and/or guardian regarding: the historical points, exam findings, and any diagnostic results supporting the discharge/admit diagnosis, lab results, radiology results, the need for further work-up and treatment in the hospital. 12/05 10:31 Order name: Basic Metabolic Panel 12/05 10:31 Order name: CBC with Diff 12/05 10:31 Order name: LFT's 12/05 10:31 Order name: Magnesium; Complete Time: 12:59 ss 12/05 10:31 Order name: NT PRO-BNP; Complete Time: 12:59 12/05 10:31 Order name: PT-INR; Complete Time: 11:38 ss 12/05 10:31 Order name: Troponin (emerg Dept Use Only); Complete Time: 12:59 ss 12/05 10:31 Order name: XRAY Chest (1 view); Complete Time: 11:38 ss 12/05 10:31 Order name: Basic Metabolic Panel; Complete Time: 12:59 EDMS 12/05 10:31 Order name: CBC with Automated Diff; Complete Time: 11:38 EDMS 12/05 10:31 Order name: Liver (Hepatic) Function; Complete Time: 12:59 EDMS 12/05 12:19 Order name: COVID-19 : Document "Date of Symptom Onset" if Symptomatic. 12/05 14:26 Order name: SARS-COV-2 RT PCR EDIA 12/05 10:31 Order name: EKG; Complete Time: 10:31 ss 12/05 10:31 Order name: Cardiac monitoring; Complete Time: 10:43 ss 12/05 10:31 Order name: EKG - Nurse/Tech; Complete Time: 10:43 12/05 10:31 Order name: IV Saline Lock; Complete Time: 10:43 ss 12/05 10:31 Order name: Labs collected and sent; Complete Time: 10:43 12/05 11:35 Order name: EKG; Complete Time: 11:52 [facility] 12/05 10:31 Order name: O2 Per Protocol; Complete Time: 10:43 ss 12/05 10:31 Order name: O2 Sat Monitoring; Complete Time: 10:43 ss 12/05 11:35 Order name: EKG - Nurse/Tech; Complete Time: 11:45 [facility] EC:06 Rate is 75 beats/min. Rhythm is regular. QRS [place] is Normal. NM interval is normal. QRS carlos interval is normal. QT interval is normal. No Q waves. T waves are Normal. No ST changes noted. Clinical impression: NSR w/ Non-specific ST/T Changes and No evidence of ischemia. Interpreted by me. Reviewed by me. Administered Medications: 11:44 Drug: Zofran (Ondansetron) 4 mg Route: IVP; Site: right antecubital; ch5 13:30 Follow up: Response: No adverse reaction 5 11:45 Drug: Aspirin Chewable Tablet 324 mg Route: PO; ch5 13:29 Follow up: Response: No adverse reaction ch5 11:45 Drug: fentaNYL (PF) 25 mcg Route: IVP; Site: right antecubital; ch5 13:30 Follow up: Response: Pain is decreased ch5 13:00 Drug: fentaNYL (PF) 25 mcg Route: IVP; Site: right antecubital; ch5 13:40 Drug: Lopressor (metoprolol TARTRATE)) 25 mg Route: PO; ch5 13:43 Drug: Heparin (HI-Bolus No thrombolytic) - HEParin 60 units/kg {Co-Signature: ss ch5 (Vero Wells RN).} Route: IVP; Site: right antecubital; 13:58 CANCELLED (Physician Discretion): Lasix (furosemide) 80 mg IVP once; give over 2 minutesss 14:08 Drug: Lasix (furosemide) 80 mg Route: IVP; Site: right antecubital; ss 15:02 Drug: Heparin (HI Drip) 12 units/kg/hr - (HEParin 75720 units, D5W 500 ml) 5 {Co-Signature: jl7 (Jl Wadsworth RN).} Route: IV; Rate: calculated rate; Site: right antecubital; 15:14 Drug: Magnesium Sulfate 1 grams Route: IVPB; Infused Over: 1 hrs; Site: right ch5 antecubital; 15:14 Drug: Benadryl (diphenhydrAMINE) 25 mg Route: IVP; Site: right antecubital; ch5 Disposition Summary: 12/05/20 11:51 Hospitalization Ordered Hospitalization Status: Observation carlos Provider: Annmarie Carrasco cha Location: Telemetry/MedSurg (observation) carlos Condition: Fair carlos Problem: new carlos Symptoms: have improved carlos Bed/Room Type: Standard carlos Room Assignment: 229(12/05/20 15:23) bd Diagnosis - Chest pain, unspecified carlos - End stage renal disease - on HD carlos - Pleural effusion in other conditions classified elsewhere carlos Forms: - Medication Reconciliation Form carlos - SBAR form carlos Signatures: Dispatcher [employer] EDMS Svetlana Iniguez Corey, MD MD cha Smirch, Shelby, RN RN Davis Villaseñor RN RN 5 Vero Wells RN Jl Wadsworth RN jl7 Corrections: (The following items were deleted from the chart) 10:10 10:10 PMHx: COPD; ch5 ch5 10:10 10:10 PMHx: High Cholesterol; ch5 ch5 10:10 10:10 PMHx: Hypertension; ch5 ch5 10:10 10:10 PMHx: CHF; ch5 ch5 10:10 10:10 PMHx: uterine cancer; ch5 ch5 10:10 10:10 PMHx: Diabetes - IDDM; ch5 ch5 10:10 10:10 PMHx: triple bypass; ch5 ch5 10:10 10:10 PMHx: ESRD; ch5 ch5 10:10 10:10 PMHx: ADD/ADHD; ch5 ch5 10:10 10:10 PMHx: Dialysis; ch5 ch5 13:58 13:58 Lasix (furosemide) 80 mg IVP once; give over 2 minutes ordered. ss ss 15:23 11:51 carlos bd
[2020-12-05] MEDS ORDERED: ONDANSETRON 4 MG/2 ML VIAL ONE (12:03)
[2020-12-05] MEDS ORDERED: ASPIRIN 81 MG CHEWABLE TABLET ONE (12:03)
[2020-12-05] MEDS ORDERED: FENTANYL CITR 100 MCG/2 ML ONE ×3 (12:05→15:16)
[2020-12-05 12:25] LABS: Albumin 3.1 g/dL (3.4-5.0); Bilirubin Direct 0.2 mg/dL (0-0.2); Bilirubin Total 0.5 mg/dL (0.2-1.0); Potassium 4.8 mmol/L (3.5-5.1); Protein, Total 7.2 g/dL (6.4-8.2)
[2020-12-05 12:26] LABS: Magnesium 1.7 mg/dL (1.8-2.4); Troponin (Emerg Dept Use Only) 0.03 ng/mL (0.0-0.045)
[2020-12-05] MEDS ORDERED: ONDANSETRON 4 MG/2 ML VIAL IV PRN (13:08)
[2020-12-05] MEDS ORDERED: ACETAMINOPHEN 500 MG TAB PO PRN (13:08)
[2020-12-05] MEDS ORDERED: HYDROCODONE/APAP 5/325 MG TAB PO PRN (13:11)
[2020-12-05] MEDS ORDERED: LABETALOL 20 MG/4ML SYRINGE IV PRN (13:13)
--- NOTE | 2020-12-05 13:19 | P.HP ---
Certification for Inpatient Patient admitted to: Inpatient With expected LOS: >2 Midnights <Christos Vieyra - Last Filed: 12/05/20 18:12> Patient History Date of Service: 12/05/20 Reason for admission: Chest pain History of Present Illness: Patient is a 65-year-old female with a past medical history significant for ESRD, HLD, HTN, CHF, DM 2 with Neuropathy, CAD, CABG, JESSICA, who presents with complaint of chest pain onset this morning. Patient reported that chest pain is located in the substernal chest area. Patient rated pain as 7/10 in severity. Patient reports associated signs and symptoms of shortness of breath and headache. Patient denies any other signs and symptoms. Symptoms are aggravated by exertion and relieved by nothing. Patient decided to present to the hospital due to worsening symptoms. - Past Medical/Surgical History Diabetic: Yes -: COPD -: Hypertension -: CAD, CABG x4 vessels (August 2017) -: Diabetes mellitus type 2, insulin-dependent -: Chronic combined systolic/diastolic CHF -: Uterine cancer status post hysterectomy -: Chronic renal disease, stage IV -: TB as a child - Negative 2017 -: Hyperlipidemia -: Iron deficiency anemia -: WEST -: ESRD on HD -: Rectal surgery -: Hysterectomy -: Cholecystectomy -: Gastric surgery -: Appendectomy -: CABG x4 vessel -: RLE Femoral popliteal bypass -: Left great toe amputation Psychosocial/ Personal History: The patient is a . Her son lives with her. She has 3 children. - Family History Brother -: Heart disease, Hypertension, Cancer Notes: Father -: Heart disease, Lung disease, Cancer Notes: - Prostate surgery - Hemorrhage Mother -: GI disease Notes: Sister -: Heart disease Notes: - Respiratory failure - Social History Smoking Status: Current every day smoker Smoking therapy provided: Yes Patient receptive to therapy: Yes Alcohol use: No CD- Drugs: No Caffeine use: Yes <Christos Vieyra - Last Filed: 12/05/20 18:12> Date of Service: 12/05/20 <Annmarie Carrasco - Last Filed: 12/11/20 03:01> Allergies morphine Allergy (Severe, Verified 10/11/20 04:32) Anaphylaxis vancomycin Allergy (Intermediate, Verified 10/11/20 04:32) Shortness of breath basil Allergy (Verified 10/11/20 04:32) Nausea/Vomiting tramadol Allergy (Verified 10/11/20 04:32) Nausea/Vomiting trazodone Allergy (Verified 10/11/20 04:32) Nausea/Vomiting nitroglycerin Adverse Reaction (Mild, Verified 10/11/20 04:32) Nausea/Vomiting Home Medications: Aspirin 81 mg PO DAILY 06/13/20 Clopidogrel Bisulfate [Plavix*] 75 mg PO DAILY 06/13/20 Fluticasone [Flovent Hfa 110*] 2 puff IN DAILY 06/13/20 Hydralazine [Apresoline*] 25 mg PO TID 06/13/20 Cholestyramine (with Sugar) [Cholestyramine Packet] 1 packet PO DAILY PRN 06/14/20 Furosemide [Lasix*] 40 mg PO BID 06/14/20 Gabapentin [Neurontin*] 100 mg PO BID 06/14/20 Dicyclomine HCl 20 mg PO Q6HP PRN #30 07/19/20 Lactobacillus Acidophilus [Acidophilus] 1 each PO TID #90 capsule 07/19/20 Lipase/Protease/Amylase [Heather Turpin 12,000 Units Capsule] 3 cap PO TIDWM #270 cap 07/19/20 Medihoney [Medihoney Woundcare Gel*] 1 appl TOP TuThSa@0900 #1 tube 07/19/20 Ipratropium Neb [Atrovent*] 0.5 mg NEB [id number] #60 amp 10/12/20 Isosorbide Dinitrate 30 mg PO DAILY #30 tablet 10/12/20 Codeine/APAP [Tylenol #3*] 1 tab PO Q6H PRN 10 Days #30 tab 12/06/20 Dicyclomine HCl 1 tab PO Q6H PRN 12/06/20 Lisinopril [Zestril] 1 tab PO DAILY 12/06/20 Vit/Fe Fumarate/FA [ 1 Plus 1 Tablet] 1 tab PO DAILY 12/06/20 Sevelamer Carbonate [Renvela*] 2 tab PO TIDWM 12/06/20 Review of Systems General: Malaise Eyes: Unremarkable ENT: Unremarkable Respiratory: Shortness of Breath, SOB with Excertion Cardiovascular: Chest Pain Gastrointestinal: Unremarkable Genitourinary: Unremarkable Musculoskeletal: Unremarkable Integumentary: Unremarkable Neurological: Other (Headache) Lymphatics: Unremarkable <Christos Vieyra - Last Filed: 12/05/20 18:12> 10-point ROS is otherwise unremarkable <CarrascoTamarpam Nye - Last Filed: 12/11/20 03:01> Physical Examination - Physical Exam General: Alert, In no apparent distress, Oriented x3 HEENT: Atraumatic, PERRLA, Mucous membr. moist/pink, EOMI, Sclerae nonicteric Neck: Supple, 2+ carotid pulse no bruit, No LAD, Without JVD or thyroid abnormality Respiratory: Diminished Cardiovascular: Regular rate/rhythm, Normal S1 S2 Capillary refill: <2 Seconds Gastrointestinal: Normal bowel sounds, No tenderness Musculoskeletal: No tenderness Integumentary: No rashes Neurological: Normal gait, Normal speech, Normal tone, Normal affect Lymphatics: No axilla or inguinal lymphadenopathy External genitalia: Deferred Rectal: Deferred - Studies Laboratory Data (last 24 hrs) 12/05/20 10:40: PT 14.2 H, INR 1.23 12/05/20 10:40: WBC 6.70, Hgb 12.3, Hct 37.8, Plt Count 184 12/05/20 10:40: Sodium 132 L, Potassium 4.8, BUN 30 H, Creatinine 2.78 H, Glucose 96, Magnesium 1.7 L, Total Bilirubin 0.5, AST 14 L, ALT 10 L, Alkaline Phosphatase 135 H <Christos Vieyra - Last Filed: 12/05/20 18:12> Assessment and Plan - Plan --Chest pain of unclear etiology. Will trend troponin. Cardiology consulted. Echocardiogram pending. Telemetry to monitor for any significant arrhythmia. Continue heparin drip. Will await further recommendation from incinerator operator. --ESRD. Nephrology consulted. Further management per lpn per diem. --Chronic combined CHF. Stable. Continue home medications. Daily weight and strict I/O. --HLD. Continue statin. --Hypertension. Stable. Continue home medications. --DM2 with neuropathy. BS monitoring with sliding scale insulin. Continue with gabapentin for her neuropathy. --History of CAD with CABG. Continue aspirin and statin. --ID. Continue home medication --DVT prophylaxis with heparin drip. I have had discussion about advanced directives with the patient during this ho spital admission. Addressed code status and goals of care. Spent more than 15 minutes. Case discussed withpatient and nurse. The following document was completed using voice recognition software. This can produce yacht rigger errors that can at times significantly distort words and phrases. Please interpret any aspect of the note that is nonsensical in light of this fact. Discharge Plan: Home Plan to discharge in: 48 Hours - Advance Directives Does patient have a Living Will: No Does patient have a Durable POA for Healthcare: Yes - Code Status/Comfort Care Code Status: Full Code Physician Review: Patient Assessed, Agree with Above Assessment and Plan Critical Care: No <Christos Vieyra - Last Filed: 12/05/20 18:12> Date of Service: 12/05/20 Subjective: Agree with plan of care as mentioned above Physical Examination: Vitals: Afebrile vital signs are stable Physical exam: Cardiovascular: Within normal limits. Lungs: Within normal limits Abdomen: Within normal limits Neuro: Awake, alert, oriented to person place and time Assessment: 1. Chest pain rule out acute coronary syndrome 2. ESRD Plan: 1. Continue with current plan of care <Annmarie Carrasco - Last Filed: 12/11/20 03:01>
[2020-12-05] MEDS ORDERED: FENTANYL CITR 100 MCG/2 ML IV PRN (13:37)
[2020-12-05] MEDS ORDERED: METOPROLOL TAR 25 MG TAB ONE (13:58)
[2020-12-05] MEDS ORDERED: HEPARIN 5000 UNIT/ML 1 ML VIAL ONE (13:58)
[2020-12-05] MEDS ORDERED: HEPARIN/D5W 25,000 UNIT/500 ML BAG IV ONE (13:59)
[2020-12-05] MEDS ORDERED: Magnesium Sulfate 2gm IVPB 2 G/50 ML BAG IV ONE (13:59)
[2020-12-05] MEDS ORDERED: HEPARIN 5000 UNIT/ML 1 ML VIAL SQ SCH (14:00)
[2020-12-05] MEDS ORDERED: FUROSEMIDE 100 MG/10 ML VIAL IV ONE (14:24)
[2020-12-05] MEDS ORDERED: DIPHENHYDRAMINE 50 MG/ML VIAL ONE (15:23)
--- NOTE | 2020-12-05 16:16 | CON ---
Date of Consultation: 12/05/2020 Reason For Consultation: Elevated BUN and creatinine, fluid management. History Of Present Illness: This is a 65-year-old female, well known to me from dialysis with significant past medical history of end-stage renal disease, on hemodialysis at [facility]; hypertension; hyperlipidemia; chronic leg edema with lymphedema and multiple wounds; CAD, status post CABG; COPD; diabetes complicated with neuropathy and nephropathy. The patient came to the hospital complaining of weakness, fatigue and chest pain. The patient denied any fever or chills. Past Medical History: Include: 1. CAD, status post CABG. 2. End-stage renal disease, on hemodialysis, TTS. 3. Secondary hyperpara. 4. Diabetes complicated with neuropathy and nephropathy. 5. COPD. Past Surgical History: Include CABG, cholecystectomy, PermCath, rectal surgery. Allergies: TO VANCOMYCIN, TRAMADOL, TRAZODONE, NITROGLYCERIN, AND MORPHINE. Family History: Positive for hypertension and diabetes. Social History: Denies smoking. Denies drinking. Denied drugs abuse. Review of Systems: Head and Neck: No red eye. No ear pain. GI: No nausea. No vomiting. : No polyuria. No dysuria. No hematuria. SOCIAL MEDIA COORDINATOR: No vaginal discharge. Respiratory: Has shortness of breath. Cardiovascular: No chest pain. Endocrine: No polydipsia. Skin: No rash. Neuro: Has leg pain. Musculoskeletal: Generalized fatigue, leg pain. Physical Examination: Vital Signs: When I saw the patient; blood pressure 110/70, pulse of 88 Chest: Crackles, bilateral. Heart: S1, S2. Systolic murmur. Abdomen: Soft, nontender. Extremities: +2 edema. Compression wrap, both lower extremities. Neurologic: Alert, oriented. No focality. Home Medications: Include carvedilol, Renvela, Zoloft, isosorbide, hydralazine, Lasix, Plavix, codeine, aspirin, allopurinol. Current Medications: Include atorvastatin, aspirin, fentanyl, metoprolol. Laboratory Data: WBC 6.7, H and H 12.3/37. Sodium of 132, potassium 4.8, bicarb 26, BUN 30, creatinine 2.7, GFR of 17, calcium 8.7, magnesium 1.7. Assessment And Plan: 1. End-stage renal disease. We will maintain the patient on dialysis. The patient due for dialysis today. We will arrange for dialysis today. 2. Over volume. We will challenge the patient. 3. Hypertension. We will utilize blood pressure to establish better volume control. We will challenge the patient. 4. Anemia of chronic kidney disease. No need for BRONWYN as H and H are stable. 5. Secondary hyperparathyroidism. We will follow up phosphorus levels. Continue binder if needed. 6. Chest pain. Will follow up with the primary. 7. Diabetes, as by primary. Time spent examining the patient [id number] placing order discussing with the patient reviewing data discussing the case with all of our subspecialty including hospitalist 65 minutes GAMA Voice ID: [id number] Report ID: [id number] AZUCENA
[2020-12-05] MEDS: METOPROLOL TAR 25 MG TAB PO SCH (17:26)
[2020-12-05] MEDS ORDERED: HEPARIN/D5W 25,000 UNIT/500 ML BAG IV SCH ×2 (19:00)
[2020-12-05 19:08] LABS: Thyroid Stimulating Hormone 4.84 uIU/mL (0.360-3.740)
[2020-12-05 19:55] VITALS: BMI 25.0
[2020-12-05 20:48] LABS: Urine Appearance CLOUDY (Clear); Urine Bilirubin NEGATIVE (Negative); Urine Blood 1+ (Negative); Urine Color YELLOW (Yellow); Urine Glucose NEGATIVE (Negative); Urine Protein 3+ (Negative); Urine Urobilinogen 0.2 mg/dL (0.2-1.0)
[2020-12-05 20:57] LABS: Urine Microscopic Reflex ORDER UMIC
[2020-12-05 21:08] LABS: Urine Bacteria <20 /HPF (<20); Urine Mucus 1+ /HPF (NONE SEEN)
[2020-12-05] MEDS: ATORVASTATIN 40 MG TAB PO SCH (21:28)
[2020-12-05] MEDS: CODEINE 30MG/APAP 300MG TAB PO PRN (21:28)
[2020-12-06] MEDS: CODEINE 30MG/APAP 300MG TAB PO PRN ×4 (02:27→18:13)
[2020-12-06] MEDS ORDERED: D50W 25 GM/50 ML SYRINGE IV PRN (05:20)
[2020-12-06] MEDS ORDERED: GLUCAGON 1 MG/VIAL IM PRN (05:20)
[2020-12-06 06:00] LABS: Absolute Lymphocytes (CBC) 1.2 K/uL (0.7-4.9); Basophils % 1.3 % (0-1.3); Hematocrit 33.9 % (36.0-45.0); Lymphocytes % 19.3 % (15.3-44.8); MPV 6.4 fL (7.6-11.3); RBC Red Blood Cell Count 3.89 M/uL (3.86-4.86)
[2020-12-06 06:17] LABS: Magnesium 1.9 mg/dL (1.8-2.4); Potassium 4.2 mmol/L (3.5-5.1)
[2020-12-06] MEDS: METOPROLOL TAR 25 MG TAB PO SCH ×2 (06:17→17:02)
[2020-12-06] MEDS: INSULIN -REGULAR HUMAN 50 UNIT/0.5 ML ML SQ SCH ×3 (07:30→16:27)
[2020-12-06] MEDS ORDERED: ENOXAPARIN 40 MG/0.4 ML SQ SCH (09:00)
[2020-12-06] MEDS ORDERED: ASPIRIN 81 MG CHEWABLE TABLET PO SCH (09:00)
--- NOTE | 2020-12-06 11:30 | EKG ---
Test Date: 2020-12-05 Test Time: 11:33:33 Digital Artist: MICHELLE MEASUREMENT RESULTS: Intervals: Rate: 75 FL: 194 QRSD: 112 QT: 428 QTc: 477 [place]: P: 84 FL: 194 QRS: 150 T: 115 INTERPRETIVE STATEMENTS: Normal sinus rhythm Right axis deviation Incomplete right bundle branch block Anterior infarct, age undetermined Abnormal ECG Compared to ECG 12/05/2020 10:41:06 Right-axis deviation now present Left posterior fascicular block no longer present Myocardial infarct finding still present Electronically Signed On 12-06-20 11:26:57 CDT by Taj Raymond
--- NOTE | 2020-12-06 11:30 | EKG ---
Test Date: 2020-12-05 Test Time: 10:41:06 [employer] [place] [employer]: BRIANNA MEASUREMENT RESULTS: Intervals: Rate: 75 [place]: 204 QRSD: 110 QT: 434 QTc: 484 [place]: P: 64 [place]: 204 QRS: 150 T: 107 INTERPRETIVE STATEMENTS: Normal sinus rhythm Possible Left atrial enlargement Incomplete right bundle branch block Left posterior fascicular block Anterior infarct, possibly acute ACUTE [place] Abnormal ECG Compared to ECG 10/11/2020 04:52:17 Left posterior fascicular block now present Myocardial infarct finding now present Prolonged QT interval no longer present Electronically Signed On 12-06-20 11:27:03 CDT by Taj Raymond
[2020-12-06] MEDS ORDERED: DIPHENHYDRAMINE 50 MG/ML VIAL IV ONE (12:58)
--- NOTE | 2020-12-06 13:14 | ECHO ---
HEIGHT: 5 ft 7 in WEIGHT: 159 lb 14.4 oz DATE OF STUDY: 12/06/[address]: Christos Vieyra 2-DIMENSIONAL: YES M.MODE: YES DOPPLER: YES COLOR FLOW: YES TDS: NO PORTABLE: NO DEFINITY: NO BUBBLE STUDY: NO DIAGNOSIS: CHEST PAIN CARDIAC HISTORY: CATHERIZATION: YES SURGERY: YES PROSTHETIC VALVE: NO PACEMAKER: NO MEASUREMENTS (cm) DIASTOLIC (NORMALS) SYSTOLIC (NORMALS) IVSd 1.3 (0.6-1.2) LA Diam 4.7 (1.9-4.0) LVEF 30-35% LVIDd 5.3 (3.5-5.7) LVIDs 3.9 (2.0-3.5) %FS % LVPWd 1.3 (0.6-1.2) Ao Diam 2.8 (2.0-3.7) 2 DIMENSIONAL ASSESSMENT: RIGHT ATRIUM: NORMAL LEFT ATRIUM: DILATED RIGHT VENTRICLE: NORMAL LEFT VENTRICLE: NORMAL SIZE TRICUSPID VALVE: NORMAL MITRAL VALVE: MITRAL ANNULAR CALCIFICATION PULMONIC VALVE: NORMAL AORTIC VALVE: SCLEROSIS PERICARDIAL EFFUSION: NONE AORTIC ROOT: NORMAL LEFT VENTRICULAR WALL MOTION: MODERATE TO SEVERE GLOBAL HYPOKINESIS. DOPPLER/COLOR FLOW: MILD TRICUSPID AND MITRAL REGURGITATION. COMMENTS: MILD TRICUSPID AND MITRAL REGURGITATION. MODERATE TO SEVERE GLOBAL HYPOKINESIS. AORTIC SCLEROSIS. MITRAL ANNULAR CALCIFICATION. TECHNOLOGIST: Donald VENTURA
--- NOTE | 2020-12-06 14:41 | PN ---
Date of Progress Note: 12/06/2020 Subjective: The patient was admitted with chest pain, over volume. The patient was taken to the clotilde lysis yesterday. We managed to remove 3 L. The patient still has significant edema. Physical Examination: Vital Signs: When I saw the patient; blood pressure of 146/67, pulse of 69, afebrile. Chest: Crackles bilateral. Heart: S1, S2. Systolic murmur. Abdomen: Soft, nontender. Extremity: +3 edema. Compression dressing. Laboratory Data: H and H 11.3/33.9. Sodium 137, potassium 4.2, bicarb 29, BUN 18, creatinine 2.3, c alcium 8.4, magnesium 1.9. TSH 4.8. Current Medications: The patient on include; 1.Aspirin. 2.Heparin. 3.Atorvastatin. 4.Labetalol. 5.Metoprolol . 6.Zofran. 7.Codeine. Assessment And Plan: 1.End-stage renal disease, over volume. We will do another sequential dialysis today. The patient okay from the Renal standpoint for discharge planning after dialysis. 2.Hypertension, controlled, optimal. We will utilize blood pressure for more ultrafiltration. Resu me Lasix 80 mg b.i.d. We will do sequential today. 3.Anemia of chronic kidney disease. No need for BRONWYN. 4.Secondary hyperparathyroidism, stable. 5.Anasarca secondary to renal failure, venous stasis. Continue wound care. We will challenge the patient and resume Lasix today. 6.Chest pain as by Cardiology. GAMA Voice ID: [id number] Report ID: [id number]
[2020-12-06 16:29] VITALS: BP 157/93
[2020-12-06 16:45] VITALS: TEMP 96.8
[2020-12-06] MEDS ORDERED: FUROSEMIDE 40 MG/4 ML VIAL IV SCH (17:00)
[2020-12-06 17:34] VITALS: O2SAT 98
[2020-12-06] MEDS: ATORVASTATIN 40 MG TAB PO SCH (19:43)
--- NOTE | 2020-12-07 10:48 | CON ---
Date of Consultation: 12/06/[address] Carrasco with chest pain on 12/05/2020. I saw the patient on 12/06/2020. History Of Present Illness: Mrs. Priest is a patient with chronic coronary artery disease, end-stage r enal disease, on hemodialysis, gout, dyslipidemia, chronic diastolic congestive heart failure, neurop athy, hypertension, and COPD. Comes in with atypical sharp chest pain, left-sided, stabbing. No cirilo sea, vomiting, diaphoresis, PND, orthopnea, pedal edema, palpitations, or syncope. Symptoms occurred during dialysis many, many, many admissions to the hospital for the same purpose. She re cently had catheterization, angioplasty and stent of her circumflex. EKG showed no acute changes. T roponin is normal. Creatinine is 2.78. Her BNP is 57,514. Pain free now. Past Medical History: As stated above. Allergies: INCLUDE MORPHINE, NITROGLYCERIN, , VANCOMYCIN, TRAMADOL, AND TRAZODONE. Medications: At home include allopurinol, aspirin, Lipitor, Lasix, Plavix, Neurontin, hydralazine, C oreg, Imdur, and inhalers. Review of Systems: Negative. Social History: Negative. Family History: Negative. Physical Examination: Vital Signs: Stable, afebrile. Pain free. HEENT: Negative. Neck: Supple with no bruit, lymphadenopathy, JVD, or thyromegaly. Chest: Clear to auscultation and percussion. Cardiac: Revealed a regular rhythm and rate. No murmurs, gallops, or rubs. Abdomen: Benign. Extremities: Revealed no clubbing, cyanosis, or edema. Diagnostic Data: As stated earlier. Impression And Plan: 1.Stable angina secondary to known coronary artery disease. No acute myocardial infarction. No EKG changes. Pain free. I would suggest increasing her Coreg and increasing her Imdur. No plan for ca theterization. 2.Hemodialysis secondary to end-stage renal disease. 3.Elevated BNP secondary to chronic diastolic congestive heart failure and renal failure. 4.Gout. 5.Dyslipidemia. 6.Hypertension. 7.Chronic obstructive pulmonary disease, all those are controlled. Again, increase Coreg, increase Imdur, continue hemodialysis. Echocardiogram is pending unless it show any new wall motion abnormali ties, I would not do a catheterization at this point. JAMIA/CELESTINE Voice ID: [id number] Report ID: [id number]
[2020-12-10 18:26] LABS: HBsAG Nonreactive (Nonreactive)
--- NOTE | 2020-12-11 03:02 | P.DS ---
Discharge Date: 12/06/20 Disposition: MA HOME/HOME HEALTH CARE Discharge Condition: GOOD Reason for Admission: Chest pain Brief History of Present Illness: Patient is a 65-year-old female with a past medical history significant for ESRD, HLD, HTN, CHF, DM 2 with Neuropathy, CAD, CABG, JESSICA, who presents with complaint of chest pain onset this morning. Patient reported that chest pain is located in the substernal chest area. Patient rated pain as 7/10 in severity. Patient reports associated signs and symptoms of shortness of breath and headache. Patient denies any other signs and symptoms. Symptoms are aggravated by exertion and relieved by nothing. Patient decided to present to the hospital due to worsening symptoms. Hospital Course: Patient is doing well clinically. Patient was dialyzed and chest pain is resolved. At this time, patient is stable for discharge home. Vital Signs/Physical Exam: Temp Pulse Resp BP Pulse Ox 96.8 F 64 18 157/93 H 99 12/06/20 16:00 12/06/20 16:28 12/06/20 19:13 12/06/20 16:28 12/06/20 19:13 General: Alert, In no apparent distress, Oriented x3 Laboratory Data at Discharge: WBC 6.20 K/uL (4.3-10.9) 12/06/20 05:20 Hgb 11.3 g/dL (12.0-15.0) L 12/06/20 05:20 Hct 33.9 % (36.0-45.0) L 12/06/20 05:20 Plt Count 175 K/uL (152-406) 12/06/20 05:20 PT 14.2 SECONDS (9.5-12.5) H 12/05/20 10:40 INR 1.23 12/05/20 10:40 APTT 170.1 SECONDS (24.3-36.9) H* 12/05/20 20:25 Sodium 137 mmol/L (136-145) 12/06/20 05:20 Potassium 4.2 mmol/L (3.5-5.1) 12/06/20 05:20 BUN 18 mg/dL (7-18) 12/06/20 05:20 Creatinine 2.32 mg/dL (0.55-1.3) H 12/06/20 05:20 Glucose 101 mg/dL (74-106) 12/06/20 05:20 Magnesium 1.9 mg/dL (1.8-2.4) 12/06/20 05:20 Total Bilirubin 0.5 mg/dL (0.2-1.0) 12/05/20 10:40 AST 14 U/L (15-37) L 12/05/20 10:40 ALT 10 U/L (12-78) L 12/05/20 10:40 Alkaline Phosphatase 135 U/L (45-117) H 12/05/20 10:40 Troponin I 0.03 ng/mL (0.0-0.045) 12/06/20 05:20 Triglycerides 103 mg/dL (<150) 12/06/20 05:20 Cholesterol 101 mg/dL (<200) 12/06/20 05:20 HDL Cholesterol 55 mg/dL (40-60) 12/06/20 05:20 Cholesterol/HDL Ratio 1.84 12/06/20 05:20 Home Medications: Aspirin 81 mg PO DAILY 06/13/20 Clopidogrel Bisulfate [Plavix*] 75 mg PO DAILY 06/13/20 Fluticasone [Flovent Hfa 110*] 2 puff IN DAILY 06/13/20 Hydralazine [Apresoline*] 25 mg PO TID 06/13/20 Cholestyramine (with Sugar) [Cholestyramine Packet] 1 packet PO DAILY PRN 06/14/20 Furosemide [Lasix*] 40 mg PO BID 06/14/20 Gabapentin [Neurontin*] 100 mg PO BID 06/14/20 Dicyclomine HCl 20 mg PO Q6HP PRN #30 07/19/20 Lactobacillus Acidophilus [Acidophilus] 1 each PO TID #90 capsule 07/19/20 Lipase/Protease/Amylase [Heather Turpin 12,000 Units Capsule] 3 cap PO TIDWM #270 cap 07/19/20 Medihoney [Medihoney Woundcare Gel*] 1 appl TOP TuThSa@0900 #1 tube 07/19/20 Ipratropium Neb [Atrovent*] 0.5 mg NEB [id number] #60 amp 10/12/20 Isosorbide Dinitrate 30 mg PO DAILY #30 tablet 10/12/20 Codeine/APAP [Tylenol #3*] 1 tab PO Q6H PRN 10 Days #30 tab 12/06/20 Dicyclomine HCl 1 tab PO Q6H PRN 12/06/20 Lisinopril [Zestril] 1 tab PO DAILY 12/06/20 Vit/Fe Fumarate/FA [ 1 Plus 1 Tablet] 1 tab PO DAILY 12/06/20 Sevelamer Carbonate [Renvela*] 2 tab PO TIDWM 12/06/20 New Medications: Codeine/APAP [Tylenol #3*] 1 tab PO Q6H PRN 10 Days #30 tab PRN Reason: Pain Scale 8-10 (Severe) Physician Discharge Instructions: OK TO DC IV AND DC HOME FOLLOW-UP WITH PRIMARY CARE PROVIDER IN 1-2 WEEKS FOLLOW-UP WITH Nephrology in for hemodialysis per regular schedule RETURN TO THE ER IF symptoms worsen CALL or TEXT DR. COOPER AT [phone] IF ANY QUESTIONS REGARDING HOSPITAL STAY. PLEASE CALL THE FLOOR AT [phone] IF ANY MEDICATION OR NURSING QUESTIONS. Diet: Renal Activity: Fall precautions Followup: Sharri Fernando MD [ACTIVE - CAN ADMIT] - NONE,NONE [Primary Care Provider] - Time spent managing pt's care (in minutes): 35
== END 2020-12-06 20:20 | disposition home health service (06) | DRG 302 ==
LOC: ER 09:52 → ERHOLD 13:08 → 2ND 18:37
PROVIDERS: ADMIT Hospitalist; ATTEND Hospitalist
PROC: 5A1D70Z Performance of Urinary Filtration, Intermittent, Less than 6 Hours Per Day (ICD-10-PCS; principal; 2020-12-05)
PROC: 5A1D70Z Performance of Urinary Filtration, Intermittent, Less than 6 Hours Per Day (ICD-10-PCS; 2020-12-06)
DX: I25.119 Atherosclerotic heart disease of native coronary artery with unspecified angina pectoris (principal); N18.6 End stage renal disease; I13.2 Hypertensive heart and chronic kidney disease with heart failure and with stage 5 chronic kidney disease, or end stage renal disease; I50.32 Chronic diastolic (congestive) heart failure; N25.81 Secondary hyperparathyroidism of renal origin; E11.22 Type 2 diabetes mellitus with diabetic chronic kidney disease; D63.1 Anemia in chronic kidney disease; E11.40 Type 2 diabetes mellitus with diabetic neuropathy, unspecified; E11.21 Type 2 diabetes mellitus with diabetic nephropathy; Z95.1 Presence of aortocoronary bypass graft; Z99.2 Dependence on renal dialysis; J44.9 Chronic obstructive pulmonary disease, unspecified; M10.9 Gout, unspecified; E78.5 Hyperlipidemia, unspecified; Z95.5 Presence of coronary angioplasty implant and graft; Z20.822 Contact with and (suspected) exposure to COVID-19; Z85.42 Personal history of malignant neoplasm of other parts of uterus
CPT/HCPCS: 36415; 71045; 80048; 80061; 80076; 81003; 81015; 82947; 83735; 83880; 84439; 84443; 84484; 85025; 85610; 85730; 86317; 87077; 87086; 87088; 87186; 87340; 90935; 93005; 93306; 96374; 96375; 99285; J1200; J1644; J1940; J2405; J3010; J3475; U0003

== ENCOUNTER 2020-12-20 19:27 | Inpatient (IN) | payer OTHER ==
[2020-12-20 20:50] LABS: Absolute Lymphocytes (CBC) 2.1 K/uL (0.7-4.9); Basophils % 0.8 % (0-1.3); Hematocrit 35.6 % (36.0-45.0); Lymphocytes % 25.4 % (15.3-44.8); MPV 6.4 fL (7.6-11.3); RBC Red Blood Cell Count 4.14 M/uL (3.86-4.86)
--- NOTE | 2020-12-20 20:51 | RAD REPORT ---
EXAM DESCRIPTION: RAD - Chest Single View - 12/20/2020 8:41 pm CLINICAL HISTORY: COUGH COMPARISON: Chest Single View dated 12/05/2020; Chest Single View dated 11/07/2020; Chest Single View d ated 10/10/2020; Chest Single View dated 10/05/2020 FINDINGS: Lines: None. Lungs: Mild increased interstitial markings in the left lung. Pleural: Moderate right pleural effusion again noted. Cardiac: Cardiomegaly. Bones: No acute fractures. Other: Left IJ approach dialysis catheter. Sternotomy. IMPRESSION: Moderate right effusion with vascular congestion versus mild edema again identified.
--- NOTE | 2020-12-20 20:53 | RAD REPORT ---
EXAM DESCRIPTION: CT - Head Brain Wo Cont - 12/20/2020 8:46 pm CLINICAL HISTORY: HEADACHE COMPARISON: Head Brain Wo Cont dated 10/24/2020; Maxillofacial Wo Con dated 12/05/2019 TECHNIQUE: All CT scans are performed using dose optimization technique as appropriate and may inclu de automated exposure control or mA/KV adjustment according to patient size. FINDINGS: No intracranial hemorrhage, hydrocephalus or extra-axial fluid collection.No areas of brai n edema or evidence of midline shift. The paranasal sinuses and mastoids are clear. The calvarium is intact. IMPRESSION: No acute intracranial abnormality.
[2020-12-20 21:12] LABS: Protime INR 1.07
[2020-12-20 22:32] LABS: Urine Blood 2+ (Negative); Urine Glucose Negative (Negative); Urine Protein 3+ (Negative)
[2020-12-20 22:46] LABS: Albumin 2.8 g/dL (3.4-5.0); Bilirubin Direct 0.1 mg/dL (0-0.2); Bilirubin Total 0.4 mg/dL (0.2-1.0); Magnesium 1.7 mg/dL (1.8-2.4); Protein, Total 6.8 g/dL (6.4-8.2); Troponin (Emerg Dept Use Only) 0.03 ng/mL (0.0-0.045)
[2020-12-20] MEDS ORDERED: CEFTRIAXONE 1000 MG/VIAL ONE (23:44)
--- NOTE | 2020-12-20 23:50 | ER ---
Nurse's Notes [facility] Name: Christy Priest Age: 65 yrs Sex: Female : 1955 Arrival Date: 12/20/2020 Time: 19:38 Bed 24 Private MD: Diagnosis: UTI/ Urinary tract infection, site not specified;Weakness;End stage renal disease-on HD TU, TH,SAT;Pleural effusion, not elsewhere classified-MODERATE RIGHT;Systolic (congestive) heart failure Presentation: 12/20 19:30 Chief complaint: Patient states: " I feel yucky since waking up from my nap about 630 dc2 pm. States before nap was starting to not feel great with generalized pain and nausea and took 1/2 tylenol with codeine. Reports waking up and feeling worse. Pt reports chest pain, headache, backpain with PRS 7/10 and nausea with no reported episodes of vomiting. Pt appears uncomfortable and needs max assist to get into bed and move self. Pt with 3+ adrian le edema and states has been like that for 2 weeks. 19:30 Initial Sepsis Screen: Does the patient meet any 2 criteria? No. Patient's initial dc2 sepsis screen is negative. Risk Assessment: Do you want to hurt yourself or someone else? Patient reports no desire to harm self or others. Onset of symptoms was December 20, 2020 at 17:30. Care prior to arrival: Medication(s) given: pt took 1/2 tylenol #3. 19:30 Acuity: DENNY 3 dc2 19:51 Chief complaint: Patient states: Elevated blood Pressure,Nausea,And Chest Pain. Patient wr have history COPD, DM, CAD,CRF, Dialysis Tues,Thr,and Sat. Dialysis Shunt in Left Chest. pain started when she woke up this PM so she call 911. Coronavirus screen: Vaccine status: Patient reports being unvaccinated. Refused COVID -19 Vaccine At this time, the client does not indicate any symptoms associated with coronavirus-19. Ebola Screen: No symptoms or risks identified at this time. 19:51 Method Of Arrival: EMS wr Triage Assessment: 19:30 General: Appears uncomfortable, weak. Pain: Complains of pain in chest , back and dc2 headache. 20:02 General: Appears obese, unkempt. Pain: Complains of pain in head and posterior chest. wr 12/21 15:49 General: Behavior is. ap3 Historical: - Allergies: 12/20 19:30 Morphine; dc2 19:30 Nitroglycerin; dc2 19:30 tramadol; dc2 19:30 Trazodone; dc2 19:30 vancomycin; dc2 19:30 Clindamycin; dc2 19:30 Vicodin; dc2 - Home Meds: 20:21 Plavix 75 mg Oral tab 1 tab once daily (Last Dose: 12/20/2020 09:00) [Active]; dc2 dicyclomine 10 mg Oral cap 1 cap 6x day PRN [Active]; Flovent 110 mcg/actuation Inhl aero 1 puff once daily [Active]; cholestyramine (with sugar) oral powd 1 packet daily [Active]; Lasix 40 mg Oral tab 1 tab 2 times per day for edema, hypertension (Last Dose: 12/20/2020 09:00) [Active]; 20:21 acetaminophen-codeine Oral every 6 hours for pain (Last Dose: 12/20/2020 17:30) dc2 [Active]; gabapentin 100 mg oral tab twice a day (Last Dose: 12/20/2020 09:00) [Active]; hydralazine 25 mg Oral tab 3xday for hypertension (Last Dose: 12/20/2020 09:30) [Active]; 19:35 Atrovent 0.5mg Inhl every 6 hours [Active]; isosorbide dinitrate 30 mg Oral tab 1 tab dc2 daily [Active]; Lactobacillus acidophilus oral cap after meals [Active]; yqeycc-lymjdgby-wpmwxay 223 mg (12,000 -39K-39K unit) oral cpDR 1 cap 3 times per day [Active]; lisinopril oral once daily for hypertension [Active]; - Immunization history:: Adult Immunizations up to date, Client reports having NOT received the Covid vaccine. - Social history:: Smoking status: Patient reports the use of cigarette tobacco products, denies chronic smoking, but will smoke occasionally. - Family history:: not pertinent. Screenin:35 Tuberculosis screening: No symptoms or risk factors identified. Has had TB. Possible dc2 symptoms: None Risk factors: None previous positive skin test, Positive TB when 8 years old . Has tested negative throughout life. Fall Risk No fall in past 12 months (0 pts). Secondary diagnosis (15 points) impaired mobility, Ambulatory Aid- Crutches/Cane/Walker (15 pts). Gait- Impaired (20 pts.). Mental Status- Oriented to own ability (0 pts). Total Merlos Fall Scale indicates High Risk Score (45 or more points). Fall prevention measures have been instituted. Side Rails Up X 2 Placed Close to Nursing Station Frequent Obs/Assessments Occuring. 20:12 Abuse screen: Denies. Nutritional screening: No deficits noted. wr 20:12 Tuberculosis screening: Patient had TB 40 years ago. No S \\T\\ S of TB at present.. Fall wr Risk Gait- Impaired (20 pts.). Assessment: 20:11 Reassessment: No changes from previously documented assessment. General: Appears. wr Vital Signs: 19:30 BP 158 / 80; Pulse 78; Resp 17; Temp 98.2; Pulse Ox 100% ; Pain 8/10; dc2 19:30 Weight 75.75 kg; Height 5 ft. 7 in. (170.18 cm); dc2 20:04 BP 166 / 81; Pulse 77; Resp 18; Temp 98.6; Pulse Ox 100% ; Weight 76.66 kg; Height 5 wr ft. 7 in. (170.18 cm); Pain 7/10; 12/21 00:27 BP 137 / 87; Pulse 55; Resp 18; Temp 98.4; Pulse Ox 100% ; wr 12/20 20:04 Body Mass Index 26.47 (76.66 kg, 170.18 cm) wr ED Course: 12/20 19:25 Arm band placed on Patient placed in an exam room. dc2 19:35 Fall risk band placed. alarm security or surveillance monitor on. Pulse ox on. NIBP on. Head of bed elevated. dc2 19:35 Patient maintains SpO2 saturation greater than 95% on room air. dc2 19:38 Patient arrived in ED. em 19:57 Alessio Parry MD is Attending Physician. carlos 20:07 Юлия Khan is Primary Nurse. wr 20:40 XRAY Chest (1 view) In Process Unspecified. EDMS 20:44 Triage completed. dc2 20:46 CT Head Brain wo Cont In Process Unspecified. EDMS 20:52 Inserted saline lock: 20 gauge in left forearm, using aseptic technique. wr 20:53 Basic Metabolic Panel Sent. wr 23:06 Urine Culture Sent. 23:47 Annmarie Carrasco MD is Hospitalizing Provider. [facility] 12/21 00:16 US Extremity Venous W Compression Adrian In Process Unspecified. EDGA 01:07 COVID-19 : Document "Date of Symptom Onset" if Symptomatic. Sent. wr 03:33 CT Stone Protocol Sent. 15:49 No provider procedures requiring assistance completed. Patient admitted, IV remains in ap3 place. Administered Medications: 12/20 23:42 Drug: Rocephin (cefTRIAXone) 1 grams Route: IV; Rate: per protocol; Site: left forearm; wr 12/21 01:06 Drug: fentaNYL (PF) 25 mcg Route: IVP; Site: left forearm; wr 01:06 Drug: Zofran (Ondansetron) 4 mg Route: IVP; Site: left forearm; wr 03:33 Drug: fentaNYL (PF) 25 mcg Route: IVP; Site: left forearm; Outcome: 12/20 23:49 Decision to Hospitalize by Provider. [facility] 12/21 15:49 Admitted to Med/surg via stretcher, with chart. ap3 Condition: good Instructed on the need for admit. 15:50 Patient left the ED. ap3 Signatures: Dispatcher [employer] EDMS Alessio Parry MD MD cha Munoz, Edgar, RN Marai A Osorio RN RN ap3 Юлия Khan MarenMeenakshi RN RN dc2 Corrections: (The following items were deleted from the chart) 12/20 20:02 19:30 Allergies: basiliximab; dc2 dc2 20:09 20:06 Arm band placed on wr dc2 20:10 19:35 EKG completed in triage. Results shown to . cat dc2 20:10 19:35 EKG completed in triage. Results shown to . eloy2 dc2 20:10 19:35 Antipyretics given from triage as ordered by an ER provider. dc2 dc2 20:10 19:35 Antipyretics given from triage as ordered by an ER provider. dc2 dc2 20:10 19:35 Antipyretics given from triage as ordered by an ER provider. dc2 dc2 20:44 20:02 Initial Sepsis Screen: Does the patient meet any 2 criteria? No. Patient's dc2 initial sepsis screen is negative. wr 20:56 19:30 Allergies: Augmentin; dc2 dc2
--- NOTE | 2020-12-20 23:50 | EDPHYS ---
Physician Documentation [facility] Name: Christy Priest Age: 65 yrs Sex: Female : 1955 Arrival Date: 12/20/2020 Time: 19:38 Bed 24 Private MD: REILLY Physician Alessio Parry HPI: 12/20 23:39 This 65 yrs old Female presents to ER via EMS with complaints of malaise, carlos back pain and weakness. 23:39 The patient presents with pain, that is acute. The complaints affect the right leg and carlos left leg. Context: The problem was sustained at an unknown site, resulted from an unknown cause, the patient can fully bear weight. Onset: The symptoms/episode began/occurred 3 day(s) ago. Modifying factors: The symptoms are alleviated by nothing. the symptoms are aggravated by nothing. The patient presents with pain that is acute, with no known mechanism of injury, and decreased range of motion. The symptoms are located in the left low back, left mid back, right mid back and right low back. Onset: The symptoms/episode began/occurred 1 day(s) ago. Associated signs and symptoms: Pertinent positives: headache, weakness. Historical: - Allergies: 19:30 Morphine; dc2 19:30 Nitroglycerin; dc2 19:30 tramadol; dc2 19:30 Trazodone; dc2 19:30 vancomycin; dc2 19:30 Clindamycin; dc2 19:30 Vicodin; dc2 - Home Meds: 20:21 Plavix 75 mg Oral tab 1 tab once daily (Last Dose: 12/20/2020 09:00) [Active]; dc2 dicyclomine 10 mg Oral cap 1 cap 6x day PRN [Active]; Flovent 110 mcg/actuation Inhl aero 1 puff once daily [Active]; cholestyramine (with sugar) oral powd 1 packet daily [Active]; Lasix 40 mg Oral tab 1 tab 2 times per day for edema, hypertension (Last Dose: 12/20/2020 09:00) [Active]; 20:21 acetaminophen-codeine Oral every 6 hours for pain (Last Dose: 12/20/2020 17:30) dc2 [Active]; gabapentin 100 mg oral tab twice a day (Last Dose: 12/20/2020 09:00) [Active]; hydralazine 25 mg Oral tab 3xday for hypertension (Last Dose: 12/20/2020 09:30) [Active]; 19:35 Atrovent 0.5mg Inhl every 6 hours [Active]; isosorbide dinitrate 30 mg Oral tab 1 tab dc2 daily [Active]; Lactobacillus acidophilus oral cap after meals [Active]; cngziy-jatleyan-pisljar 223 mg (12,000 -39K-39K unit) oral cpDR 1 cap 3 times per day [Active]; lisinopril oral once daily for hypertension [Active]; - Immunization history:: Adult Immunizations up to date, Client reports having NOT received the Covid vaccine. - Social history:: Smoking status: Patient reports the use of cigarette tobacco products, denies chronic smoking, but will smoke occasionally. - Family history:: not pertinent. ROS: 23:39 Constitutional: Negative for fever, chills, and weight loss, Eyes: Negative for injury, carlos pain, redness, and discharge, ENT: Negative for injury, pain, and discharge, Neck: Negative for injury, pain, and swelling, Cardiovascular: Negative for chest pain, palpitations, and edema, Respiratory: Negative for shortness of breath, cough, wheezing, and pleuritic chest pain, Abdomen/GI: Negative for abdominal pain, nausea, vomiting, diarrhea, and constipation, : Negative for injury, bleeding, discharge, and swelling, MS/Extremity: Negative for injury and deformity, Skin: Negative for injury, rash, and discoloration, Neuro: Negative for headache, weakness, numbness, tingling, and seizure, Psych: Negative for depression, anxiety, suicide ideation, homicidal ideation, and hallucinations, Allergy/Immunology: Negative for hives, rash, and allergies, Endocrine: Negative for neck swelling, polydipsia, polyuria, polyphagia, and marked weight changes, Hematologic/Lymphatic: Negative for swollen nodes, abnormal bleeding, and unusual bruising. 23:39 Back: Positive for decreased range of motion, flank pain, bilaterally, of the lumbar area, left low back, left mid back, right mid back and right low back. Exam: 23:39 Constitutional: This is a well developed, well nourished patient who is awake, alert, carlos and in no acute distress. Head/Face: Normocephalic, atraumatic. Eyes: Pupils equal round and reactive to light, extra-ocular motions intact. Lids and lashes normal. Conjunctiva and sclera are non-icteric and not injected. Cornea within normal limits. Periorbital areas with no swelling, redness, or edema. ENT: Nares patent. No nasal discharge, no septal abnormalities noted. Tympanic membranes are normal and external auditory canals are clear. Oropharynx with no redness, swelling, or masses, exudates, or evidence of obstruction, uvula midline. Mucous membranes moist. Neck: Trachea midline, no thyromegaly or masses palpated, and no cervical lymphadenopathy. Supple, full range of motion without nuchal rigidity, or vertebral point tenderness. No Meningismus. Chest/axilla: Normal chest wall appearance and motion. Nontender with no deformity. No lesions are appreciated. Cardiovascular: Regular rate and rhythm with a normal S1 and S2. No gallops, murmurs, or rubs. Normal PMI, no JVD. No pulse deficits. Respiratory: Lungs have equal breath sounds bilaterally, clear to auscultation and percussion. No rales, rhonchi or wheezes noted. No increased work of breathing, no retractions or nasal flaring. Abdomen/GI: Soft, non-tender, with normal bowel sounds. No distension or tympany. No guarding or rebound. No evidence of tenderness throughout. Female : Normal external genitalia. Skin: Warm, dry with normal turgor. Normal color with no rashes, no lesions, and no evidence of cellulitis. Neuro: Awake and alert, GCS 15, oriented to person, place, time, and situation. Cranial nerves II-XII grossly intact. Motor strength 5/5 in all extremities. Sensory grossly intact. Cerebellar exam normal. Normal gait. Psych: Awake, alert, with orientation to person, place and time. Behavior, mood, and affect are within normal limits. 23:39 ECG was reviewed by the Attending Physician. 23:39 Back: pain, that is mild, that is moderate, of the left low back, left mid back, right mid back and right low back, ROM is normal, normal spinal alignment noted, CVA tenderness, is absent, muscle spasm, is not present. Vital Signs: 19:30 BP 158 / 80; Pulse 78; Resp 17; Temp 98.2; Pulse Ox 100% ; Pain 8/10; dc2 19:30 Weight 75.75 kg; Height 5 ft. 7 in. (170.18 cm); dc2 20:04 BP 166 / 81; Pulse 77; Resp 18; Temp 98.6; Pulse Ox 100% ; Weight 76.66 kg; Height 5 wr ft. 7 in. (170.18 cm); Pain 7/10; 12/21 00:27 BP 137 / 87; Pulse 55; Resp 18; Temp 98.4; Pulse Ox 100% ; wr 12/20 20:04 Body Mass Index 26.47 (76.66 kg, 170.18 cm) wr MDM: 12/20 19:57 Patient medically screened. [facility] 23:39 Differential diagnosis: contusion, chronic back pain, Fatigue Hydronephrosis carlos Osteoarthritis. Data reviewed: vital signs, nurses notes, lab test result(s), EKG, radiologic studies, CT scan, plain films. Data interpreted: social services designee: rate is 77 beats/min, rhythm is regular, Pulse oximetry: on room air is 100 %. Test interpretation: by ED physician or midlevel provider: ECG, plain radiologic studies. Counseling: I had a detailed discussion with the patient and/or guardian regarding: the historical points, exam findings, and any diagnostic results supporting the discharge/admit diagnosis, lab results, radiology results, the need for outpatient follow up, for definitive care. 12/20 19:58 Order name: Basic Metabolic Panel [facility] 12/20 19:58 Order name: CBC with Diff; Complete Time: 23:30 [facility] 12/20 19:58 Order name: LFT's; Complete Time: 23:30 [facility] 12/20 19:58 Order name: Magnesium; Complete Time: 23:30 [facility] 12/20 19:58 Order name: NT PRO-BNP; Complete Time: 23:30 [facility] 12/20 19:58 Order name: PT-INR; Complete Time: 23:30 [facility] 12/20 19:58 Order name: Troponin (emerg Dept Use Only); Complete Time: 23:30 [facility] 12/20 19:58 Order name: Basic Metabolic Panel; Complete Time: 23:30 [facility] 12/20 22:31 Order name: Urine Dipstick-Ancillary; Complete Time: 23:30 [facility] 12/20 22:45 Order name: Urine Culture [facility] 12/21 00:30 Order name: COVID-19 : Document "Date of Symptom Onset" if Symptomatic. wg 12/21 02:11 Order name: SARS-COV-2 RT PCR [facility] 12/21 04:03 Order name: Urinalysis [facility] 12/21 05:49 Order name: Urine Microscopic Only [facility] 12/20 19:58 Order name: XRAY Chest (1 view); Complete Time: 23:30 [facility] 12/20 19:58 Order name: EKG; Complete Time: 19:59 [facility] 12/20 19:58 Order name: Cardiac monitoring; Complete Time: 20:53 [facility] 12/20 19:58 Order name: EKG - Nurse/Tech; Complete Time: 20:53 [facility] 12/20 19:58 Order name: IV Saline Lock; Complete Time: 20:53 [facility] 12/20 19:58 Order name: CT Head Brain wo Cont; Complete Time: 23:30 [facility] 12/20 23:29 Order name: US Extremity Venous W Compression René [facility] 12/20 23:38 Order name: CT Stone Protocol [facility] 12/21 00:46 Order name: CONS Physician Consult [facility] 12/21 08:27 Order name: Glucose, Ancillary Testing [facility] 12/21 10:45 Order name: CT [facility] 12/21 12:32 Order name: Glucose, Ancillary Testing [facility] 12/20 19:58 Order name: Labs collected and sent; Complete Time: 20:53 [facility] 12/20 19:58 Order name: O2 Per Protocol; Complete Time: 20:53 [facility] 12/20 19:58 Order name: O2 Sat Monitoring; Complete Time: 20:53 [facility] EC:39 Rate is 77 beats/min. Rhythm is regular. QRS [place] is Normal. MI interval is prolonged [facility] at 114 msec. QRS interval is normal. QT interval is normal. No Q waves. T waves are Normal. No ST changes noted. Clinical impression: NSR w/ Non-specific ST/T Changes and No evidence of ischemia. Interpreted by me. Reviewed by me. Administered Medications: 23:42 Drug: Rocephin (cefTRIAXone) 1 grams Route: IV; Rate: per protocol; Site: left forearm; wr 12/21 01:06 Drug: fentaNYL (PF) 25 mcg Route: IVP; Site: left forearm; wr 01:06 Drug: Zofran (Ondansetron) 4 mg Route: IVP; Site: left forearm; wr 03:33 Drug: fentaNYL (PF) 25 mcg Route: IVP; Site: left forearm; wr Disposition Summary: 12/20/20 23:49 Hospitalization Ordered Hospitalization Status: Observation carlos Provider: Annmarie Carrasco cha Condition: Fair carlos Problem: new carlos Symptoms: have improved carlos Bed/Room Type: Standard carlos Location: Telemetry/MedSurg (observation)(12/21/20 15:16) [email or web address] Room Assignment: 210(12/21/20 15:16) kj1 Diagnosis - UTI/ Urinary tract infection, site not specified carlos - Weakness carlos - End stage renal disease - on HD TU, TH,SAT carlos - Pleural effusion, not elsewhere classified - MODERATE RIGHT carlos - Systolic (congestive) heart failure carlos Forms: - Medication Reconciliation Form carlos - SBAR form carlos Signatures: Dispatcher [employer] EDAlessio Encinas MD MD cha Lasagna, Tonya RN RN tl1 Katie Wilson1 Юлия Khan Meenakshi Engel RN RN dc2 Corrections: (The following items were deleted from the chart) 12/20 20:02 19:30 Allergies: basiliximab; dc2 dc2 20:56 19:30 Allergies: Augmentin; dc2 dc2 12/21 00:57 12/20 23:49 Telemetry/MedSurg (observation) carlos 1 12/21 00:57 12/20 23:49 carlos 1 12/21 15:16 00:57 [facility] ER HOLD tl1 kj1 15:16 00:57 ERHOLD- tl1 kj1
[2020-12-21] MEDS ORDERED: FENTANYL CITR 100 MCG/2 ML ONE ×2 (01:14→03:41)
[2020-12-21] MEDS ORDERED: ONDANSETRON 4 MG/2 ML VIAL ONE (01:14)
[2020-12-21] MEDS: FUROSEMIDE 20 MG/ 2ML VIAL IV SCH ×3 (01:48→18:10)
[2020-12-21] MEDS ORDERED: ONDANSETRON 4 MG/2 ML VIAL IV PRN (01:48)
[2020-12-21] MEDS: HEPARIN 5000 UNIT/ML 1 ML VIAL SQ SCH ×3 (01:48→18:10)
[2020-12-21] MEDS ORDERED: CODEINE 30MG/APAP 300MG TAB PO PRN ×2 (01:48→09:52)
--- NOTE | 2020-12-21 02:47 | P.HP ---
Certification for Inpatient Patient admitted to: Observation With expected LOS: <2 Midnights Patient will require the following post-hospital care: None Practitioner: I am a practitioner with admitting privileges, knowledge of patient current condition, hospital course, and medical plan of care. Services: Services provided to patient in accordance with Admission requirements found in Title 42 Section 412.3 of the Code of Federal Regulations Patient History Date of Service: 12/21/20 Reason for admission: UTI History of Present Illness: Ms. Priest is a 65 yo F with ESRD on HD TTS and CHF who presents with one day of malaise, weakness, back pain and leg pain. She was found to have a UTI. CT scan showed bladder wall thickening and presence of chronic pleural effusion. Na 130, Cr 2.65, GFR 18, BNP 46039. Received IV ceftriaxone in the ED. Allergies morphine Allergy (Severe, Verified 10/11/20 04:32) Anaphylaxis vancomycin Allergy (Intermediate, Verified 10/11/20 04:32) Shortness of breath basil Allergy (Verified 10/11/20 04:32) Nausea/Vomiting tramadol Allergy (Verified 10/11/20 04:32) Nausea/Vomiting trazodone Allergy (Verified 10/11/20 04:32) Nausea/Vomiting nitroglycerin Adverse Reaction (Mild, Verified 10/11/20 04:32) Nausea/Vomiting Home Medications: Aspirin 81 mg PO DAILY 06/13/20 Clopidogrel Bisulfate [Plavix*] 75 mg PO DAILY 06/13/20 Fluticasone [Flovent Hfa 110*] 2 puff IN DAILY 06/13/20 Hydralazine [Apresoline*] 25 mg PO TID 06/13/20 Cholestyramine (with Sugar) [Cholestyramine Packet] 1 packet PO DAILY PRN 06/14/20 Furosemide [Lasix*] 40 mg PO BID 06/14/20 Gabapentin [Neurontin*] 100 mg PO BID 06/14/20 Dicyclomine HCl 20 mg PO Q6HP PRN #30 07/19/20 Lactobacillus Acidophilus [Acidophilus] 1 each PO TID #90 capsule 07/19/20 Lipase/Protease/Amylase [Heather Turpin 12,000 Units Capsule] 3 cap PO TIDWM #270 cap 07/19/20 Medihoney [Medihoney Woundcare Gel*] 1 appl TOP TuThSa@0900 #1 tube 07/19/20 Ipratropium Neb [Atrovent*] 0.5 mg NEB [id number] #60 amp 10/12/20 Isosorbide Dinitrate 30 mg PO DAILY #30 tablet 10/12/20 Codeine/APAP [Tylenol #3*] 1 tab PO Q6H PRN 10 Days #30 tab 12/06/20 Dicyclomine HCl 1 tab PO Q6H PRN 12/06/20 Lisinopril [Zestril] 1 tab PO DAILY 12/06/20 Vit/Fe Fumarate/FA [ 1 Plus 1 Tablet] 1 tab PO DAILY 12/06/20 Sevelamer Carbonate [Renvela*] 2 tab PO TIDWM 12/06/20 - Past Medical/Surgical History Has patient received pneumonia vaccine in the past: No Diabetic: Yes -: COPD -: Hypertension -: CAD, CABG x4 vessels (August 2017) -: Diabetes mellitus type 2, insulin-dependent -: Chronic combined systolic/diastolic CHF -: Uterine cancer status post hysterectomy -: Chronic renal disease, stage IV -: TB as a child - Negative 2017 -: Hyperlipidemia -: Iron deficiency anemia -: WEST -: ESRD on HD -: Rectal surgery -: Hysterectomy -: Cholecystectomy -: Gastric surgery -: Appendectomy -: CABG x4 vessel -: RLE Femoral popliteal bypass -: Left great toe amputation Psychosocial/ Personal History: The patient is a . Her son lives with her. She has 3 children. - Family History Brother -: Heart disease, Hypertension, Cancer Notes: Father -: Heart disease, Lung disease, Cancer Notes: - Prostate surgery - Hemorrhage Mother -: GI disease Notes: Sister -: Heart disease Notes: - Respiratory failure - Social History Smoking Status: Unknown if ever smoked Alcohol use: No CD- Drugs: No Caffeine use: Yes Place of Residence: Home Review of Systems General: Weakness, Malaise Musculoskeletal: Back Pain, Leg Pain Physical Examination - Physical Exam General: Alert, In no apparent distress, Oriented x3, Cooperative HEENT: Atraumatic, PERRLA, Mucous membr. moist/pink, EOMI, Sclerae nonicteric Neck: Supple, 2+ carotid pulse no bruit, No LAD, Without JVD or thyroid abnormality Respiratory: Normal air movement, Crackles/rales Cardiovascular: Regular rate/rhythm, Normal S1 S2, No gallops, No rubs, No murmurs, Edema Gastrointestinal: Normal bowel sounds, No tenderness Musculoskeletal: No tenderness Integumentary: Skin breakdown, Tenderness/swelling Neurological: Normal speech, Normal strength at 5/5 x4 extr, Normal tone, Normal affect Lymphatics: No axilla or inguinal lymphadenopathy Urinary: Dialysis catheter - Studies Laboratory Data (last 24 hrs) 12/20/20 20:30: PT 12.3, INR 1.07 12/20/20 20:30: WBC 8.40, Hgb 11.7 L, Hct 35.6 L, Plt Count 155 12/20/20 20:30: Sodium 130 L, Potassium 5.0, BUN 28 H, Creatinine 2.65 H, G lucose 124 H, Magnesium 1.7 L, Total Bilirubin 0.4, AST 17, ALT 14, Alkaline Phosphatase 109 Assessment and Plan - Problems (Diagnosis) (1) Coronary arteriosclerosis Onset Date: 09/09/16 Current Visit: No Status: Chronic (2) Diabetes mellitus Onset Date: 10/03/17 Current Visit: No Status: Chronic Qualifiers: Diabetes mellitus type: type 2 Diabetes mellitus fpc insulin use: 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 Diabetes mellitus complication status: with kidney complications Chronic kidney disease stage: on chronic dialysis (3) ESRD (end stage renal disease) on dialysis Onset Date: ~04/26/20 Current Visit: No Status: Chronic (4) Hyperlipidemia Onset Date: 10/03/17 Current Visit: No Status: Chronic Qualifiers: (5) Hypertension Current Visit: No Status: Chronic Qualifiers: (6) Lymphedema Current Visit: No Status: Chronic (7) Pleural effusion Onset Date: 04/28/15 Current Visit: No Status: Chronic (8) UTI (urinary tract infection) Current Visit: No Status: Acute Qualifiers: Urinary tract infection type: site unspecified Hematuria presence: without hematuria Qualified Code(s): N39.0 - Urinary tract infection, site not specified (9) Headache Current Visit: No Status: Chronic Qualifiers: Headache type: unspecified Headache chronicity pattern: acute headache Intractability: not intractable Qualified Code(s): R51.9 - Headache, unspecified - Plan continue IV antibiotics continue IV lasix, dialysis tomorrow, nephrology consulted pain management as needed reconcile and continue home medications DVT ppx Discharge Plan: Home Plan to discharge in: 24 Hours - Advance Directives Does patient have a Living Will: No Does patient have a Durable POA for Healthcare: Yes - Code Status/Comfort Care Code Status Assessed: Yes (full code ) Critical Care: No Time Spent Managing Pts Care (In Minutes): 70
[2020-12-21 03:10] VITALS: BMI 26.2
[2020-12-21] MEDS ORDERED: HEPARIN 5000 UNIT/ML 1 ML VIAL ONE ×2 (03:42→10:24)
[2020-12-21] MEDS ORDERED: FUROSEMIDE 20 MG/ 2ML VIAL ONE ×2 (03:42→10:24)
[2020-12-21 04:02] LABS: Urine Appearance TURBID (Clear); Urine Bilirubin NEGATIVE (Negative); Urine Blood 2+ (Negative); Urine Color YELLOW (Yellow); Urine Glucose NEGATIVE (Negative); Urine Microscopic Reflex ORDER UMIC; Urine Protein 2+ (Negative); Urine Urobilinogen 0.2 mg/dL (0.2-1.0)
[2020-12-21 05:49] LABS: Urine Bacteria >50 /HPF (<20); Urine RBC <5 /HPF (NONE SEEN)
[2020-12-21] MEDS: INSULIN -REGULAR HUMAN 50 UNIT/0.5 ML ML SQ SCH ×4 (07:30→20:18)
--- NOTE | 2020-12-21 07:34 | RAD REPORT ---
EXAM DESCRIPTION: USExtrem Venous W Compress Bil12/21/2020 12:16 am CLINICAL HISTORY: Leg swelling COMPARISON: October 2020 FINDINGS: The common femoral, superficial femoral, popliteal and posterior tibial veins bilaterally are compressible and demonstrate augmentation. Doppler demonstrates good flow. IMPRESSION: No evidence of deep venous thrombosis involving either lower extremity.
[2020-12-21] MEDS: ACETAMINOPHEN 500 MG TAB PO PRN ×2 (08:49→13:40)
[2020-12-21] MEDS ORDERED: CEFTRIAXONE 1 GM/NS 50 ML 1 GM/50 ML BAG IV SCH (09:00)
[2020-12-21] MEDS ORDERED: CEFTRIAXONE/SWI 1gm 1 GM/10 ML SYR IV SCH (09:00)
[2020-12-21] MEDS ORDERED: ACETAMINOPHEN 500 MG TAB ONE ×2 (09:03→14:02)
[2020-12-21] MEDS ORDERED: HOME MED 1 EA UNK (Cholestyramine (With Sugar) [Cholestyramine Packet] 4 GM Powd.Pack) PO PRN (09:52)
[2020-12-21] MEDS ORDERED: DICYCLOMINE HCL 10 MG CAP PO PRN (09:52)
[2020-12-21] MEDS ORDERED: CHOLESTYRAMINE/ASP 4 GM/PKT PO PRN (10:22)
[2020-12-21] MEDS ORDERED: CEFTRIAXONE/SWI 1gm 1 GM/10 ML SYR ONE (10:25)
[2020-12-21] MEDS ORDERED: NA CHLORIDE 0.9% 100 ML ONE (10:25)
--- NOTE | 2020-12-21 10:44 | RAD REPORT ---
EXAM DESCRIPTION: CT - Stone Protocol - 12/21/2020 6:24 am CLINICAL HISTORY: Abd pain;Flank pain COMPARISON: 07/08/2020 TECHNIQUE: CT of the abdomen and pelvis without IV contrast. Evaluation of the solid organs and vasc ulature is suboptimal due to lack of IV contrast. This exam was performed according to our department al dose-optimization program, which includes automated exposure control, adjustment of the mA and/or kV according to patient size and/or use of iterative reconstruction technique. FINDINGS: Lung Bases: Moderate right pleural effusion with right basilar opacities possibly represen ting compressive atelectasis. Bones: Osteopenia. Multilevel degenerative endplate spondylosis, facet arthropathy, and disc height n arrowing throughout the lumbar spine most severe at L5/S1. Abdomen: Liver: Hepatomegaly. Gallbladder: Not visualized. Spleen, Pancreas, and Adrenal Glands: Calcified splenic granulomas. Pancreas and adrenal glands are unremarkable. Kidneys: The kidneys have normal size without evidence of hydronephrosis. No obstructing ureteral marilin culi. Vasculature: Aortoiliac atherosclerosis. IVC is unremarkable. Stomach: Postoperative change of the stomach. Other: No free intraperitoneal air. Small amount of free fluid. Body wall anasarca. Pelvis: Bladder: Wall thickening of the urinary bladder. Air in the urinary bladder. This may be related to recent catheterization. Bowel: No dilated loops of large or small bowel. Appendix: Normal appendix. Pelvis: Prior hysterectomy. IMPRESSION: 1. Wall thickening of the urinary bladder. This could be seen with cystitis. Air in th e urinary bladder may be related to recent catheterization. Correlation for appropriate history recom mended. 2. Moderate right pleural effusion with right basilar opacities possibly representing compressive a telectasis. 3. Small amount of free fluid in the abdomen. 4. Hepatomegaly. Electronically signed by: Davis Mosquera 12/21/2020 1:17 AM CDT Due to temporary technical issues with the PACS/Fluency reporting system, reports are being signed by the in house radiologist without review as a courtesy to ensure prompt reporting. The interpreting r adiologist is fully responsible for the content of the report.
[2020-12-21] MEDS: LIPASE/PROTEASE/AMYLASE CAP PO SCH ×2 (12:00→17:00)
[2020-12-21] MEDS: SEVELAMER CARBONATE 800 MG TABLET PO SCH ×2 (12:00→18:10)
[2020-12-21] MEDS: HYDRALAZINE HCL 25 MG TABLET PO SCH ×2 (14:00→20:17)
[2020-12-21] MEDS ORDERED: HEPARIN 5000 UNIT/ML 1 ML VIAL IV SCH (14:00)
[2020-12-21] MEDS: IPRATROPIUM BROM 0.5MG/2.5ML NEB SCH ×2 (14:00→20:00)
[2020-12-21] MEDS: LACTOBACILLUS/ACIDOPHILUS TAB PO SCH ×2 (14:00→20:17)
[2020-12-21] MEDS ORDERED: IPRATROPIUM BROM 0.5MG/2.5ML ONE (14:07)
--- NOTE | 2020-12-21 14:25 | CON ---
Date of Consultation: 12/21/2020 Additional Consulting Physician: Doctor, hospitalist. Reason For Consultation: Over volume, end-stage renal disease. History Of Present Illness: This is a pleasant 65-year-old female, well known to me from dialysis, p oor compliant with fluid restriction, with significant past medical history of end-stage renal diseas e, on dialysis TTS, last dialysis according to her was Friday, CAD, secondary hyperparathyroidism, diabetes complicated with neuropathy and nephropathy, COPD. The patient came to the hospital [facility] from shortness of breath and increase in her leg swelling. For that reason, we have been consul merna. The patient missed her dialysis Friday. Past Medical History: Includes; 1.CAD status post CABG. 2.End-stage renal disease, on hemodialysis, TTS. 3.Secondary hyperparathyroidism. 4.Diabetes complicated with neuropathy and nephropathy. 5.COPD. 6.Chronic leg edema with wound. Past Surgical History: Includes CABG, cholecystectomy, PermCath, rectal surgery. Allergies: TO VANCOMYCIN, TRAMADOL, TRAZODONE, NITROGLYCERIN, AND MORPHINE. Family History: Positive for hypertension and diabetes. Social History: Denied smoking. Denied drinking. Denied drugs abuse. Review of Systems: Head and Neck: No red eye. No ear pain. GI: No nausea. No vomiting. : No polyuria. No dysuria. No hematuria. 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 Respiratory: Has shortness of breath. Cardiovascular: Has leg edema. Has orthopnea. Musculoskeletal: Has leg pain. Neuro: Has neuropathy. Endocrine: No polydipsia. Home Medications: Include; 1.Renvela. 2.Lisinopril. 3.Isosorbide. 4.Hydralazine. 5.Gabapentin. 6.Lasix. 7.Plavix. 8.Aspirin. Current Medications: Include heparin, ipratropium, isosorbide, lisinopril, multivitamin. Physical Examination: Vital Signs: Blood pressure of 136/98, pulse of 72, afebrile. Chest: Crackles bilateral, more prominent on the left side. Heart: S1, S2. Systolic murmur. Abdomen: Soft, nontender. Extremities: +2 edema, erythema bilateral lower extremities. Laboratory Data: WBC 8.4, H and H 11.7/35.6. Sodium 130, potassium 5, bicarb 28, BUN 28, creatinine 2.6, calcium 9, magnesium 1.7. BNP 39,900. Assessment And Plan: 1.End-stage renal disease, over volume. I am going to do dialysis today. We will challenge the pat ient and we are going to arrange for another session of dialysis tomorrow. 2.Hypertension. We will utilize blood pressure for more ultrafiltration. 3.Hyponatremia secondary to dilutional, secondary to renal failure, going to be corrected with dialy sis. 4.Over volume. We will challenge the patient. 5.Marginal hyperkalemia. The patient is going to be dialyzed on low-potassium bath. 6.Congestive heart failure with exacerbation. As above, we will ultrafiltrate. 7.Anemia of chronic kidney disease. No need for BRONWYN. 8.Secondary hyperparathyroidism. Resume Renvela. 9.Hypomagnesemia. No need for supplement. GAMA Voice ID: [id number] Report ID: [id number]
--- NOTE | 2020-12-21 18:00 | P.PN ---
Date of Service: 12/21/20 Patient seen and examined. She has no new complain. UA suggest UTI. Plan: Continue IV Rocephin. Continue IV Lasix Seen by nephrology. Patient to undergo hemodialysis today. Follow urine culture. Continue other home medications.
[2020-12-21] MEDS ORDERED: DIPHENHYDRAMINE 50 MG/ML VIAL IV ONE (19:49)
[2020-12-21] MEDS: HYDROCODONE/APAP 5/325 MG TAB PO PRN (20:16)
[2020-12-21] MEDS: GABAPENTIN 100 MG CAP PO SCH (20:17)
[2020-12-21 21:05] VITALS: O2SAT 99
[2020-12-21] MEDS: CEFTRIAXONE/SWI 1gm 1 GM/10 ML SYR IV SCH (23:58)
[2020-12-22] MEDS: HEPARIN 5000 UNIT/ML 1 ML VIAL SQ SCH ×2 (00:10→09:14)
[2020-12-22] MEDS ORDERED: HYDRALAZINE HCL 20 MG/ML VIAL IV PRN (00:28)
[2020-12-22] MEDS: IPRATROPIUM BROM 0.5MG/2.5ML NEB SCH ×2 (02:00→08:00)
[2020-12-22] MEDS: HYDROCODONE/APAP 5/325 MG TAB PO PRN ×2 (04:11→13:12)
--- NOTE | 2020-12-22 05:26 | P.PN ---
Subjective Date of Service: 12/22/20 Chief Complaint: UTI Subjective: No new changes Physical Examination - Vital Signs Temperature: 97.3 F Blood Pressure: 184/84 Pulse: 72 Respirations: 18 Pulse Ox (%): 99 - Physical Exam General: Other (appears as her stated age) HEENT: Atraumatic, Normocephalic Neck: Supple Respiratory: Other (symmetric chest expansion) Cardiovascular: No rubs, No murmurs Gastrointestinal: Soft and benign, No guarding Musculoskeletal: No clubbing Integumentary: No warmth Neurological: Normal tone Urinary: Other (no bladder distention) Assessment And Plan - Plan 1. End-stage renal disease, over volume. she received HDS a day. Next HD tomorrow. 2. Hypertension. BP viable. continue current regimen. 3. Volume overload. Correction via HD. 4. Congestive heart failure with exacerbation. ultrafiltration/HD as above. 5. Anemia of chronic kidney disease. H&H at goal. Monitor. 6. Hypophosphatemia. She received Neutra-Phos by mouth today.
[2020-12-22 05:41] LABS: Absolute Lymphocytes (CBC) 1.4 K/uL (0.7-4.9); Basophils % 1.1 % (0-1.3); Hematocrit 34.3 % (36.0-45.0); Lymphocytes % 25.2 % (15.3-44.8); MPV 6.8 fL (7.6-11.3); RBC Red Blood Cell Count 3.96 M/uL (3.86-4.86)
[2020-12-22 06:00] LABS: Albumin 2.6 g/dL (3.4-5.0); Bilirubin Total 0.3 mg/dL (0.2-1.0); Magnesium 1.9 mg/dL (1.8-2.4); Phosphorus 2.6 mg/dL (2.5-4.9); Potassium 4.1 mmol/L (3.5-5.1); Protein, Total 6.9 g/dL (6.4-8.2)
[2020-12-22] MEDS: HYDRALAZINE HCL 25 MG TABLET PO SCH ×2 (06:11→14:45)
[2020-12-22] MEDS: INSULIN -REGULAR HUMAN 50 UNIT/0.5 ML ML SQ SCH ×2 (07:30→11:30)
[2020-12-22] MEDS: LIPASE/PROTEASE/AMYLASE CAP PO SCH ×2 (08:00→13:12)
[2020-12-22] MEDS ORDERED: MULTIVITAMIN TAB PO SCH (09:00)
[2020-12-22] MEDS ORDERED: FLUTICASONE 110 MCG/PUFF 12 GM INH IH SCH (09:00)
[2020-12-22] MEDS ORDERED: ASPIRIN 81 MG CHEWABLE TABLET PO SCH (09:00)
[2020-12-22] MEDS ORDERED: ISOSORBIDE DINIT 20 MG TAB PO SCH (09:00)
[2020-12-22] MEDS ORDERED: CLOPIDOGREL 75 MG TABLET PO SCH (09:00)
[2020-12-22] MEDS ORDERED: lisinopriL 5 MG TAB PO SCH (09:00)
[2020-12-22] MEDS ORDERED: FLOVENT 110 MCG IH SCH (09:00)
[2020-12-22] MEDS: LACTOBACILLUS/ACIDOPHILUS TAB PO SCH ×2 (09:08→14:45)
[2020-12-22] MEDS: SEVELAMER CARBONATE 800 MG TABLET PO SCH ×2 (09:08→13:18)
[2020-12-22] MEDS: GABAPENTIN 100 MG CAP PO SCH (09:09)
[2020-12-22] MEDS: FUROSEMIDE 20 MG/ 2ML VIAL IV SCH (09:14)
[2020-12-22] MEDS: CEFTRIAXONE/SWI 1gm 1 GM/10 ML SYR IV SCH (09:16)
[2020-12-22] MEDS ORDERED: POTASS/SODIUM PHOSPHATE 1 PKT POWD.PACK PO ONE (12:00)
--- NOTE | 2020-12-22 12:46 | P.DS ---
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 Priest is a 65 yo F with ESRD on HD TTS and CHF who presents with one day of malaise, weakness, back pain and leg pain. She was found to have a UTI. CT scan showed bladder wall thickening and presence of chronic pleural effusion. Na 130, Cr 2.65, GFR 18, BNP 94339. Patient given IV ceftriaxone in the ED and admitted for further management. Hospital Course: Patient admitted to medical floor and treated with IV Rocephin for UTI. Urine culture grew Gram negative rods. Patient was asymptomatic during the hospital stay. She received hemodialysis. All her other medications were continued during the hospital stay. Patient is discharged with cefpodoxime to continue treatment for the UTI. She will complete 1 week of antibiotics. She will continue to routine hemodialysis. Vital Signs/Physical Exam: Temp Pulse Resp BP Pulse Ox 97.8 F 65 18 169/79 H 100 12/22/20 12:00 12/22/20 12:00 12/22/20 12:00 12/22/20 12:00 12/22/20 12:00 General: Alert, In no apparent distress, Oriented x3 HEENT: Mucous membr. moist/pink Neck: JVD not distended Respiratory: Clear to auscultation bilaterally, Normal air movement Cardiovascular: Normal S1 S2, Edema (Right lower extremity), Irregular heart rate/rhythm Gastrointestinal: Soft and benign, Non-distended Musculoskeletal: Swelling (Right lower extremity) Integumentary: Other (Venous stasis dermatitis) Neurological: Normal strength at 5/5 x4 extr Laboratory Data at Discharge: WBC 5.60 K/uL (4.3-10.9) D 12/22/20 05:15 Hgb 11.1 g/dL (12.0-15.0) L 12/22/20 05:15 Hct 34.3 % (36.0-45.0) L 12/22/20 05:15 Plt Count 151 K/uL (152-406) L 12/22/20 05:15 PT 12.3 SECONDS (9.5-12.5) 12/20/20 20:30 INR 1.07 12/20/20 20:30 Sodium 135 mmol/L (136-145) L 12/22/20 05:15 Potassium 4.1 mmol/L (3.5-5.1) 12/22/20 05:15 BUN 19 mg/dL (7-18) H 12/22/20 05:15 Creatinine 2.30 mg/dL (0.55-1.3) H 12/22/20 05:15 Glucose 114 mg/dL (74-106) H 12/22/20 05:15 Phosphorus 2.6 mg/dL (2.5-4.9) 12/22/20 05:15 Magnesium 1.9 mg/dL (1.8-2.4) 12/22/20 05:15 Total Bilirubin 0.3 mg/dL (0.2-1.0) 12/22/20 05:15 AST 17 U/L (15-37) 12/22/20 05:15 ALT 14 U/L (12-78) 12/22/20 05:15 Alkaline Phosphatase 112 U/L (45-117) 12/22/20 05:15 Home Medications: Aspirin 81 mg PO DAILY 06/13/20 Clopidogrel Bisulfate [Plavix*] 75 mg PO DAILY 06/13/20 Fluticasone [Flovent Hfa 110*] 2 puff IN DAILY 06/13/20 Hydralazine [Apresoline*] 25 mg PO TID 06/13/20 Cholestyramine (with Sugar) [Cholestyramine Packet] 1 packet PO DAILY PRN 06/14/20 Furosemide [Lasix*] 40 mg PO BID 06/14/20 Gabapentin [Neurontin*] 100 mg PO BID 06/14/20 Lactobacillus Acidophilus [Acidophilus] 1 each PO TID #90 capsule 07/19/20 Lipase/Protease/Amylase [Heather Turpin 12,000 Units Capsule] 3 cap PO TIDWM #270 cap 07/19/20 Medihoney [Medihoney Woundcare Gel*] 1 appl TOP TuThSa@0900 #1 tube 07/19/20 Ipratropium Neb [Atrovent*] 0.5 mg NEB [id number] #60 amp 10/12/20 Isosorbide Dinitrate 30 mg PO DAILY #30 tablet 10/12/20 Codeine/APAP [Tylenol #3*] 1 tab PO Q6H PRN 10 Days #30 tab 12/06/20 Dicyclomine HCl 1 tab PO Q6H PRN 12/06/20 Lisinopril [Zestril] 1 tab PO DAILY 12/06/20 Vit/Fe Fumarate/FA [ 1 Plus 1 Tablet] 1 tab PO DAILY 12/06/20 Sevelamer Carbonate [Renvela*] 2 tab PO TIDWM 12/06/20 Cefpodoxime Proxetil 100 mg PO Q48H #3 tablet 12/22/20 Heparin [Heparin 1,000 units/mL *] 6,000 unit IV EVERY HD PRN vial 12/22/20 New Medications: Cefpodoxime Proxetil 100 mg PO Q48H #3 tablet Physician Discharge Instructions: PROBLEM: UTI, ESRD GOAL: Clear understanding of disease process INSTRUCTIONS: Okay to discharge home Follow up with dialysis on your regularly scheduled dialysis day at your regular chair time Take all medications as prescribed Follow up with your primary care doctor Diet: ADA Activity: Fall precautions DME DME: None Date Ordered: Name of Company: [employer] Services Needed: None Name of Company: Date or Referral: IMMUNIZATION Influenza Vaccine Indicated: No Influenza Vaccine Given: Date Given: Pneumonia Vaccine Indicated: Yes Pneumonia Vaccine Given: Date Given: Diet: ADA Activity: Fall precautions Followup: NONE,NONE [Primary Care Provider] - 1-2 Weeks Time spent managing pt's care (in minutes): 33
[2020-12-22] MEDS ORDERED: PNEUMOCOCCAL VACCINE 0.5 ML IMVAC ONE (14:00)
[2020-12-22 22:45] VITALS: BP 184/84; TEMP 97.3
[2020-12-23] MEDS ORDERED: CEFTRIAXONE 1 GM/NS 50 ML 1 GM/50 ML BAG IV SCH (09:00)
== END 2020-12-22 14:53 | disposition home health service (06) | DRG 689 ==
LOC: ER 19:27 → ERHOLD 12-21 00:45 → 2ND 12-21 15:48
PROVIDERS: ADMIT Internal Medicine; ATTEND Internal Medicine
PROC: 5A1D70Z Performance of Urinary Filtration, Intermittent, Less than 6 Hours Per Day (ICD-10-PCS; principal; 2020-12-21)
DX: N39.0 Urinary tract infection, site not specified (principal); N18.6 End stage renal disease; I50.43 Acute on chronic combined systolic (congestive) and diastolic (congestive) heart failure; I13.2 Hypertensive heart and chronic kidney disease with heart failure and with stage 5 chronic kidney disease, or end stage renal disease; N25.81 Secondary hyperparathyroidism of renal origin; E87.1 Hypo-osmolality and hyponatremia; I87.333 Chronic venous hypertension (idiopathic) with ulcer and inflammation of bilateral lower extremity; L97.929 Non-pressure chronic ulcer of unspecified part of left lower leg with unspecified severity; L97.919 Non-pressure chronic ulcer of unspecified part of right lower leg with unspecified severity; E11.22 Type 2 diabetes mellitus with diabetic chronic kidney disease; E78.5 Hyperlipidemia, unspecified; I89.0 Lymphedema, not elsewhere classified; R51.9 Headache, unspecified; J44.9 Chronic obstructive pulmonary disease, unspecified; I25.10 Atherosclerotic heart disease of native coronary artery without angina pectoris; E11.40 Type 2 diabetes mellitus with diabetic neuropathy, unspecified; E11.21 Type 2 diabetes mellitus with diabetic nephropathy; E87.5 Hyperkalemia; E83.42 Hypomagnesemia; E83.39 Other disorders of phosphorus metabolism; Z85.42 Personal history of malignant neoplasm of other parts of uterus; Z95.1 Presence of aortocoronary bypass graft; Z99.2 Dependence on renal dialysis; Z89.412 Acquired absence of left great toe; Z20.822 Contact with and (suspected) exposure to COVID-19
CPT/HCPCS: 36415; 70450; 71045; 74176; 76377; 80048; 80053; 80069; 80076; 81003; 81015; 82947; 83735; 83880; 84484; 85025; 85610; 87077; 87086; 87088; 87186; 90935; 93005; 93970; 94760; 96374; 96375; 99285; J0360; J0696; J1200; J1644; J1940; J2405; J3010; U0003

== ENCOUNTER 2020-12-26 10:24 | Inpatient (IN) | payer OTHER ==
[2020-12-26 10:55] LABS: Protime INR 1.27
[2020-12-26 11:23] LABS: Absolute Lymphocytes (CBC) 1.6 K/uL (0.7-4.9); Hematocrit 35.1 % (36.0-45.0); Lymphocytes % 20.5 % (15.3-44.8); MPV 6.6 fL (7.6-11.3); RBC Red Blood Cell Count 4.02 M/uL (3.86-4.86)
[2020-12-26 11:24] LABS: Albumin 2.5 g/dL (3.4-5.0); Bilirubin Direct 0.1 mg/dL (0-0.2); Bilirubin Total 0.3 mg/dL (0.2-1.0); Magnesium 1.8 mg/dL (1.8-2.4); Potassium 4.9 mmol/L (3.5-5.1); Protein, Total 6.6 g/dL (6.4-8.2); Troponin (Emerg Dept Use Only) 0.06 ng/mL (0.0-0.045)
--- NOTE | 2020-12-26 11:42 | EDPHYS ---
Physician Documentation [facility] Name: Christy Priest Age: 65 yrs Sex: Female : 1955 Arrival Date: 12/26/2020 Time: 10:25 Bed 6 Private MD: ED Physician Alessio Parry HPI: 12/26 11:22 This 65 yrs old Female presents to ER via EMS with complaints of Chest Pain. carlos 11:22 The patient has shortness of breath at rest, with light activity. Onset: The carlos symptoms/episode began/occurred just prior to arrival. Duration: The symptoms are continuous, but are markedly better than the original presentation. The patient's shortness of breath has no apparent modifying factors. The patient or guardian reports chest pain that is located primarily in the anterior chest wall, bilaterally. Onset: just prior to arrival. at dialysis when cp occured. The pain radiates to Associated signs and symptoms: Pertinent positives: near syncope. Severity of symptoms: At their worst the symptoms were mild moderate in the emergency department the symptoms are unchanged. Historical: - Allergies: 10:30 Clindamycin; bp 10:30 Morphine; bp 10:30 Nitroglycerin; bp 10:30 tramadol; bp 10:30 Trazodone; bp 10:30 Vancomycin; bp 10:30 Vicodin; bp - PMHx: 10:30 Kidney disease; Anemia; End stage renal disease; Hypertensive disorder; Congestive bp heart failure; Irritable bowel syndrome; Diabetes mellitus; - Immunization history:: Client reports having NOT received the Covid vaccine. - Social history:: Smoking status: Patient/guardian denies using tobacco. - Family history:: not pertinent. ROS: 11:22 Constitutional: Negative for fever, chills, and weight loss, Eyes: Negative for injury, carlos pain, redness, and discharge, ENT: Negative for injury, pain, and discharge, Neck: Negative for injury, pain, and swelling, Abdomen/GI: Negative for abdominal pain, nausea, vomiting, diarrhea, and constipation, Back: Negative for injury and pain, : Negative for injury, bleeding, discharge, and swelling, MS/Extremity: Negative for injury and deformity, Skin: Negative for injury, rash, and discoloration, Neuro: Negative for headache, weakness, numbness, tingling, and seizure, Psych: Negative for depression, anxiety, suicide ideation, homicidal ideation, and hallucinations, Allergy/Immunology: Negative for hives, rash, and allergies, Endocrine: Negative for neck swelling, polydipsia, polyuria, polyphagia, and marked weight changes, Hematologic/Lymphatic: Negative for swollen nodes, abnormal bleeding, and unusual bruising. 11:22 Cardiovascular: Positive for chest pain, of the chest. 11:22 Respiratory: Positive for shortness of breath. Exam: 11:22 Constitutional: This is a well developed, well nourished patient who is awake, alert, carlos and in no acute distress. Head/Face: Normocephalic, atraumatic. Eyes: Pupils equal round and reactive to light, extra-ocular motions intact. Lids and lashes normal. Conjunctiva and sclera are non-icteric and not injected. Cornea within normal limits. Periorbital areas with no swelling, redness, or edema. ENT: Nares patent. No nasal discharge, no septal abnormalities noted. Tympanic membranes are normal and external auditory canals are clear. Oropharynx with no redness, swelling, or masses, exudates, or evidence of obstruction, uvula midline. Mucous membranes moist. Neck: Trachea midline, no thyromegaly or masses palpated, and no cervical lymphadenopathy. Supple, full range of motion without nuchal rigidity, or vertebral point tenderness. No Meningismus. Chest/axilla: Normal chest wall appearance and motion. Nontender with no deformity. No lesions are appreciated. Cardiovascular: Regular rate and rhythm with a normal S1 and S2. No gallops, murmurs, or rubs. Normal PMI, no JVD. No pulse deficits. Respiratory: Lungs have equal breath sounds bilaterally, clear to auscultation and percussion. No rales, rhonchi or wheezes noted. No increased work of breathing, no retractions or nasal flaring. Abdomen/GI: Soft, non-tender, with normal bowel sounds. No distension or tympany. No guarding or rebound. No evidence of tenderness throughout. Back: No spinal tenderness. No costovertebral tenderness. Full range of motion. Female : Normal external genitalia. Skin: Warm, dry with normal turgor. Normal color with no rashes, no lesions, and no evidence of cellulitis. MS/ Extremity: Pulses equal, no cyanosis. Neurovascular intact. Full, normal range of motion. Neuro: Awake and alert, GCS 15, oriented to person, place, time, and situation. Cranial nerves II-XII grossly intact. Motor strength 5/5 in all extremities. Sensory grossly intact. Cerebellar exam normal. Normal gait. Psych: Awake, alert, with orientation to person, place and time. Behavior, mood, and affect are within normal limits. 11:42 ECG was reviewed by the Attending Physician. [facility] Vital Signs: 10:25 BP 172 / 89; Pulse 80; Resp 18; Pulse Ox 100% on R/A; Weight 75.75 kg; Height 5 ft. 7 ap3 in. (170.18 cm); Pain 6/10; 11:00 BP 169 / 89; Pulse 78; Resp 10; Pulse Ox 100% ; bp 14:43 BP 169 / 88; Pulse 74; Resp 18; Pulse Ox 100% on R/A; Pain 7/10; ld1 10:25 Body Mass Index 26.16 (75.75 kg, 170.18 cm) ap3 MDM: 10:33 Patient medically screened. carlos 11:27 Differential diagnosis: Anemia Anxiety Reaction Bronchitis abnormal EKG, anxiety, carlos coronary artery disease chest wall pain, congestive heart failure gastritis, hiatal hernia, pleurisy, pneumonia, stable angina, unstable angina, Myocardial Infarction pulmonary edema, Unstable Angina. Antibiotic administration: Not indicated. HEART Score: History: Moderately Suspicious (1), ECG: Non specific repolarization disturbance / LBTB / PM (1), Age: > 45 and < 65 years (1), Risk Factors: > or = 3 Risk factors for atherosclerotic disease (2), [Hypercholesterolemia] [Hypertension] [DM] [+ Family HX] Troponin: < or = 1 x Normal Limit (0). The patient was given aspirin in the Emergency Department. The patient's Wells Deep Vein Thrombosis Score was calculated as follows: Total Score: 0. This patient was found to be at low risk for a deep vein thrombosis by using the Well's assessment criteria Total Score: 0-2 Pts- Low Risk. The patient's pulmonary embolism risk score was calculated as follows: Total Score: 0-2 points. This patient was found to be at low risk for a pulmonary embolism by using the Well's assessment criteria Total Score: 0-2 points. This patient was found to be at low risk for a pulmonary embolism by using the Well's assessment criteria. SYMONE Risk Score: 1 - patient's age is greater or equal to 65 years, 1 - Three or more CAD risk factors, 1- Known CAD, 1 - ASA use in past 7 days, TOTAL SCORE = 4. Immunization status: Pneumococcal vaccine: Influenza vaccine: Data reviewed: vital signs, nurses notes, lab test result(s), EKG, radiologic studies, plain films. Data interpreted: quality assurance monitor body: rate is 78 beats/min, rhythm is regular, Pulse oximetry: on room air is 100 %. Test interpretation: by ED physician or midlevel provider: ECG, plain radiologic studies. 12/26 10:35 Order name: Basic Metabolic Panel; Complete Time: 13:51 [facility] 12/26 10:35 Order name: CBC with Diff; Complete Time: 13:51 [facility] 12/26 10:35 Order name: LFT's; Complete Time: 13:51 [facility] 12/26 10:35 Order name: Magnesium; Complete Time: 13:51 [facility] 12/26 10:35 Order name: NT PRO-BNP; Complete Time: 13:51 [facility] 12/26 10:35 Order name: PT-INR; Complete Time: 11:19 [facility] 12/26 10:35 Order name: Troponin (emerg Dept Use Only); Complete Time: 13:51 [facility] 12/26 10:35 Order name: XRAY Chest (1 view); Complete Time: 13:51 [facility] 12/26 13:21 Order name: Hemoglobin A1c [facility] 12/26 13:21 Order name: Lipid Profile [facility] 12/26 13:59 Order name: Ptt, Activated [facility] 12/26 17:08 Order name: T4 Free [facility] 12/26 17:08 Order name: Thyroid Stimulating Hormone [facility] 12/26 17:22 Order name: PTT, Activated Partial Thromb [facility] 12/26 10:35 Order name: EKG; Complete Time: 10:35 [facility] 12/26 10:35 Order name: Cardiac monitoring; Complete Time: 10:37 [facility] 12/26 10:35 Order name: EKG - Nurse/Tech; Complete Time: 10:37 [facility] 12/26 10:35 Order name: IV Saline Lock; Complete Time: 10:37 [facility] 12/26 10:35 Order name: Labs collected and sent; Complete Time: 10:37 [facility] 12/26 10:35 Order name: O2 Per Protocol; Complete Time: 10:37 [facility] 12/26 10:35 Order name: O2 Sat Monitoring; Complete Time: :37 [facility] 12/26 15:55 Order name: Labs - recollect needed: recollect light blue top; Complete Time: 18:08 bd EC:42 Rate is 79 beats/min. Rhythm is regular. QRS [place] is Normal. CT interval is normal. QRS carlos interval is normal. QT interval is normal. No Q waves. T waves are Normal. No ST changes noted. Clinical impression: Abnormal EKG without significant change and No evidence of ischemia. Interpreted by me. Reviewed by me. Administered Medications: 11:25 Not Given (pt received full ASA en route. MD Sohan bravo): Aspirin 81 mg PO once tr6 13:58 CANCELLED (Duplicate Order): Lovenox (enoxaparin) 40 mg Sub-Q once carlos 14:39 Drug: Heparin (VT-Bolus No thrombolytic) - HEParin 60 units/kg {Co-Signature: tr6 ld1 (Yoon Denton RN).} Route: IVP; Site: right wrist; 14:41 Follow up: Response: No adverse reaction ld1 14:39 Drug: Heparin (VT Drip) 12 units/kg/hr - (HEParin 09940 units, D5W 500 ml) ld1 {Co-Signature: tr6 (Yoon Denton RN).} Route: IV; Rate: calculated rate; Site: right wrist; 14:42 Follow up: Response: No adverse reaction ld1 14:40 Drug: Nitro-Bid (nitroglycerin) Ointment 2 % 0.5 inches Route: Transdermal; Site: ld1 anterior chest wall; 14:41 Follow up: Response: No adverse reaction ld1 14:40 Drug: fentaNYL (PF) 25 mcg Route: IVP; Site: right wrist; ld1 14:41 Follow up: Response: No adverse reaction ld1 14:40 Drug: Zofran (Ondansetron) 4 mg Route: IVP; Site: right wrist; ld1 14:41 Follow up: Response: No adverse reaction ld1 14:40 Not Given (pt already took medication this morningg): PlaVIX (clopidogrel) 75 mg PO onceld1 14:41 Drug: Pepcid (famotidine) 20 mg Route: IVP; Site: right wrist; ld1 Disposition Summary: 12/26/20 11:42 Hospitalization Ordered Hospitalization Status: Observation carlos Provider: Oleksandr Nettles cha Location: Telemetry/MedSurg (observation) carlos Condition: Fair carlos Problem: new carlos Symptoms: have improved carlos Bed/Room Type: Standard carlos Room Assignment: 208(12/26/20 16:52) bd Diagnosis - Chest pain, unspecified carlos - Dyspnea carlos - Pleural effusion in other conditions classified elsewhere carlos - End stage renal disease - on HD , , SAT carlos - Non ST elevation VT carlos - Essential (primary) hypertension carlos Forms: - Medication Reconciliation Form carlos - SBAR form carlos Signatures: Dispatcher [employer] EDSvetlana Castro Corey, MD MD cha Peltier, Brian RN RN Maria A Nelson RN RN ap3 Radha Patel RN RN ld1 Yoon Denton RN tr6 Yoon Denton RN tr6 Corrections: (The following items were deleted from the chart) 13:58 13:54 Lovenox (enoxaparin) 40 mg Sub-Q once ordered. carlos carlos 16:52 11:42 carlos bd
--- NOTE | 2020-12-26 11:42 | ER ---
Nurse's Notes [facility] Name: Christy Priest Age: 65 yrs Sex: Female : 1955 Arrival Date: 12/26/2020 Time: 10:25 Bed 6 Private MD: Diagnosis: Chest pain, unspecified;Dyspnea;Pleural effusion in other conditions classified elsewhere;End stage renal disease-on HD , , SAT;Non ST elevation RI;Essential (primary) hypertension Presentation: 12/26 10:25 Chief complaint: EMS states: they were toned out to a call from the dialysis center. ap3 the patient was given her pre-dialysis medications. it is reported that promptly after the administration of the medications, the patient felt a numb, tingling feeling all over followed by chest pain. Patient states she has never had this happen before. Coronavirus screen: At this time, the client does not indicate any symptoms associated with coronavirus-19. Ebola Screen: No symptoms or risks identified at this time. Initial Sepsis Screen: Does the patient meet any 2 criteria? No. Patient's initial sepsis screen is negative. Does the patient have a suspected source of infection? No. Patient's initial sepsis screen is negative. Risk Assessment: Do you want to hurt yourself or someone else? Patient reports no desire to harm self or others. Onset of symptoms was December 26, 2020. 10:25 Method Of Arrival: EMS: [facility] ap3 10:25 Acuity: DENNY 3 ap3 Triage Assessment: 10:28 General: Appears in no apparent distress. Behavior is calm, cooperative, appropriate ap3 for age. Pain: Complains of pain in anterior aspect of right upper chest and right breast Pain radiates to right arm and left arm Pain currently is 6 out of 10 on a pain scale. Pain began suddenly. Neuro: Level of Consciousness is awake, alert, obeys commands, Oriented to person, place, time, situation, Appropriate for age Moves all extremities. Speech is normal. Cardiovascular: Reports chest pain, Capillary refill < 3 seconds Patient's skin is warm and dry. Respiratory: Airway is patent Respiratory effort is even, unlabored, Respiratory pattern is regular, symmetrical. Historical: - Allergies: 10:30 Clindamycin; bp 10:30 Morphine; bp 10:30 Nitroglycerin; bp 10:30 tramadol; bp 10:30 Trazodone; bp 10:30 Vancomycin; bp 10:30 Vicodin; bp - PMHx: 10:30 Kidney disease; Anemia; End stage renal disease; Hypertensive disorder; Congestive bp heart failure; Irritable bowel syndrome; Diabetes mellitus; - Immunization history:: Client reports having NOT received the Covid vaccine. - Social history:: Smoking status: Patient/guardian denies using tobacco. - Family history:: not pertinent. Screenin:29 Abuse screen: Denies threats or abuse. Nutritional screening: No deficits noted. ap3 Tuberculosis screening: No symptoms or risk factors identified. 14:43 Fall Risk None identified. ld1 Assessment: 10:30 General: SEE TRIAGE NOTE. bp 14:43 General: Appears in no apparent distress. comfortable, Behavior is calm, cooperative, ld1 appropriate for age. Pain: Complains of pain in anterior aspect of right upper chest, right breast, right arm and left arm Pain does not radiate. Pain currently is 7 out of 10 on a pain scale. Quality of pain is described as throbbing, Pain began 2 hours ago. Is continuous. Neuro: Level of Consciousness is awake, alert, obeys commands, Oriented to person, place, time, situation. Cardiovascular: Capillary refill < 3 seconds Patient's skin is warm and dry. Respiratory: Airway is patent Respiratory effort is even, unlabored, Respiratory pattern is regular, symmetrical. GI: Abdomen is flat, non-distended. : No signs and/or symptoms were reported regarding the genitourinary system. EENT: No signs and/or symptoms were reported regarding the EENT system. Derm: No signs and/or symptoms reported regarding the dermatologic system. Musculoskeletal: No signs and/or symptoms reported regarding the musculoskeletal system. Vital Signs: 10:25 BP 172 / 89; Pulse 80; Resp 18; Pulse Ox 100% on R/A; Weight 75.75 kg; Height 5 ft. 7 ap3 in. (170.18 cm); Pain 6/10; 11:00 BP 169 / 89; Pulse 78; Resp 10; Pulse Ox 100% ; bp 14:43 BP 169 / 88; Pulse 74; Resp 18; Pulse Ox 100% on R/A; Pain 7/10; ld1 10:25 Body Mass Index 26.16 (75.75 kg, 170.18 cm) ap3 ED Course: 10:25 Patient arrived in ED. ap3 10:27 Triage completed. ap3 10:29 Arm band placed on right wrist. ap3 10:29 Patient has correct armband on for positive identification. Bed in low position. Call ap3 light in reach. Side rails up X2. case monitor on. Pulse ox on. NIBP on. Door closed. Noise minimized. 10:30 Jose Cruz Meyer, GUILHERME is Primary Nurse. bp 10:33 Alessio Parry MD is Attending Physician. carlos 10:38 EKG done, by ED staff, reviewed by Alessio Parry MD. em1 10:55 XRAY Chest (1 view) In Process Unspecified. EDMS 11:36 Oleksandr Nettles MD is Hospitalizing Provider. carlos 14:43 No provider procedures requiring assistance completed. Inserted saline lock: 20 gauge ld1 in right wrist, using aseptic technique. 18:09 Patient admitted, IV remains in place. intact, bleeding controlled, No redness/swelling ld1 at site. Administered Medications: 11:25 Not Given (pt received full ASA en route. MD Parry awaree): Aspirin 81 mg PO once tr6 13:58 CANCELLED (Duplicate Order): Lovenox (enoxaparin) 40 mg Sub-Q once carlos 14:39 Drug: Heparin (RI-Bolus No thrombolytic) - HEParin 60 units/kg {Co-Signature: tr6 ld1 (Yoon Denton RN).} Route: IVP; Site: right wrist; 14:41 Follow up: Response: No adverse reaction ld1 14:39 Drug: Heparin (RI Drip) 12 units/kg/hr - (HEParin 37909 units, D5W 500 ml) ld1 {Co-Signature: tr6 (Yoon Denton RN).} Route: IV; Rate: calculated rate; Site: right wrist; 14:42 Follow up: Response: No adverse reaction ld1 14:40 Drug: Nitro-Bid (nitroglycerin) Ointment 2 % 0.5 inches Route: Transdermal; Site: ld1 anterior chest wall; 14:41 Follow up: Response: No adverse reaction ld1 14:40 Drug: fentaNYL (PF) 25 mcg Route: IVP; Site: right wrist; ld1 14:41 Follow up: Response: No adverse reaction ld1 14:40 Drug: Zofran (Ondansetron) 4 mg Route: IVP; Site: right wrist; ld1 14:41 Follow up: Response: No adverse reaction ld1 14:40 Not Given (pt already took medication this morningg): PlaVIX (clopidogrel) 75 mg PO onceld1 14:41 Drug: Pepcid (famotidine) 20 mg Route: IVP; Site: right wrist; ld1 Outcome: 11:42 Decision to Hospitalize by Provider. carlos 18:08 Admitted to Med/surg accompanied by michael, via wheelchair, room 208, with chart, Report ld1 called to GUILHERME Charles 18:08 Condition: stable 18:08 Instructed on the need for admit. 18:09 Patient left the ED. ld1 Signatures: Dispatcher [employer] EDAlessio Encinas MD MD cha Martinez, Eric em1 Jose Cruz Meyer, GUILHERME RN bp Maria A Sagastume RN RN ap3 Radha Patel RN RN ld1 Yoon Denton RN tr6 Yoon Denton RN tr6
--- NOTE | 2020-12-26 12:22 | RAD REPORT ---
EXAM DESCRIPTION: RAD - Chest Single View - 12/26/2020 10:55 am CLINICAL HISTORY: COUGH COMPARISON: December 20 chest film, December 21 CT abdomen TECHNIQUE: AP portable chest image was obtained 12/26/2020 10:55 am . FINDINGS: Lung volumes are low. Right pleural effusion is present with right base atelectasis. Right base infiltrate could be masked. Dialysis catheter is in place with the tip at the SVC atrial juncti on. Interstitial markings are prominent throughout both lung alaniz. This pattern is similar to the prior study. Cardiac silhouette is enlarged similar to comparison. Vasculature is prominent and similar to the study of December 20. No pneumothorax. No measurable left-sided pleural effusion. No acute bony abnormality seen. No acute aortic findings suspected. IMPRESSION: Right-sided pleural effusion with atelectasis similar to December 20 imaging. Right bas e infiltrate could be masked. Heart, vasculature and lung markings overall are prominent suggesting a component of mild failure/ vo lume overload.
[2020-12-26] MEDS ORDERED: ONDANSETRON 4 MG/2 ML VIAL IV PRN (14:37)
[2020-12-26] MEDS ORDERED: LABETALOL 20 MG/4ML SYRINGE IV PRN (14:37)
[2020-12-26] MEDS ORDERED: NITROGLYCERIN 1 GM PKT TD ONE ×2 (14:37→14:41)
[2020-12-26] MEDS ORDERED: HEPARIN 5000 UNIT/ML 1 ML VIAL ONE (14:37)
[2020-12-26] MEDS ORDERED: ACETAMINOPHEN 500 MG TAB PO PRN (14:37)
[2020-12-26] MEDS ORDERED: CLOPIDOGREL 75 MG TABLET ONE (14:38)
[2020-12-26] MEDS ORDERED: FENTANYL CITR 100 MCG/2 ML ONE (14:38)
[2020-12-26] MEDS ORDERED: FAMOTIDINE 20 MG/2 ML VIAL IV ONE (14:38)
[2020-12-26] MEDS ORDERED: ONDANSETRON 4 MG/2 ML VIAL ONE (14:38)
[2020-12-26] MEDS ORDERED: HEPARIN/D5W 25,000 UNIT/500 ML BAG IV ONE (14:38)
[2020-12-26] MEDS ORDERED: DICYCLOMINE HCL 20 MG PO PRN (14:41)
[2020-12-26] MEDS ORDERED: HOME MED 1 EA UNK (Cholestyramine (With Sugar) [Cholestyramine Packet] 4 GM Powd.Pack) PO PRN (14:41)
[2020-12-26] MEDS ORDERED: CHOLESTYRAMINE/ASP 4 GM/PKT PO PRN (15:02)
--- NOTE | 2020-12-26 15:04 | P.HP ---
Certification for Inpatient Patient admitted to: Inpatient With expected LOS: >2 Midnights Patient will require the following post-hospital care: Home Health Services Practitioner: I am a practitioner with admitting privileges, knowledge of patient current condition, hospital course, and medical plan of care. Services: Services provided to patient in accordance with Admission requirements found in Title 42 Section 412.3 of the Code of Federal Regulations Patient History Date of Service: 12/26/20 Reason for admission: Chest pain History of Present Illness: Patient is a 65-year-old female with a past medical history significant for ESRD, HLD, HTN, CHF, DM 2 with Neuropathy, CAD, CABG, JESSICA, who presents with complaint of chest pain onset this morning. Patient reported that after receiving Epogen injection in preparation for dialysis. Shortly after patient started having chest pain, facial numbness, tingling in the lips, upper\lower extremity numbness and weakness. Patient reported that she could barely walk. Patient reported that chest pain is located in the substernal chest area. Patient rated pain as 5/10 in severity. Patient reports associated signs and symptoms of shortness of breath and bilateral lower extremity edema worse on the right side. Patient denies any other signs and symptoms. Symptoms are aggravated by exertion and relieved by nothing. Patient decided to present to the hospital due to worsening symptoms. Allergies morphine Allergy (Severe, Verified 10/11/20 04:32) Anaphylaxis vancomycin Allergy (Intermediate, Verified 10/11/20 04:32) Shortness of breath basil Allergy (Verified 10/11/20 04:32) Nausea/Vomiting tramadol Allergy (Verified 10/11/20 04:32) Nausea/Vomiting trazodone Allergy (Verified 10/11/20 04:32) Nausea/Vomiting nitroglycerin Adverse Reaction (Mild, Verified 10/11/20 04:32) Nausea/Vomiting Home Medications: Aspirin 81 mg PO DAILY 06/13/20 Clopidogrel Bisulfate [Plavix*] 75 mg PO DAILY 06/13/20 Fluticasone [Flovent Hfa 110*] 2 puff IN DAILY 06/13/20 Hydralazine [Apresoline*] 25 mg PO TID 06/13/20 Cholestyramine (with Sugar) [Cholestyramine Packet] 1 packet PO DAILY PRN 06/14/20 Furosemide [Lasix*] 40 mg PO BID 06/14/20 Gabapentin [Neurontin*] 100 mg PO BID 06/14/20 Lactobacillus Acidophilus [Acidophilus] 1 each PO TID #90 capsule 07/19/20 Lipase/Protease/Amylase [Heather Turpin 12,000 Units Capsule] 3 cap PO TIDWM #270 cap 07/19/20 Medihoney [Medihoney Woundcare Gel*] 1 appl TOP TuThSa@0900 #1 tube 07/19/20 Ipratropium Neb [Atrovent*] 0.5 mg NEB [id number] #60 amp 10/12/20 Isosorbide Dinitrate 30 mg PO DAILY #30 tablet 10/12/20 Codeine/APAP [Tylenol #3*] 1 tab PO Q6H PRN 10 Days #30 tab 12/06/20 Dicyclomine HCl 1 tab PO Q6H PRN 12/06/20 Lisinopril [Zestril] 1 tab PO DAILY 12/06/20 Vit/Fe Fumarate/FA [ 1 Plus 1 Tablet] 1 tab PO DAILY 12/06/20 Sevelamer Carbonate [Renvela*] 2 tab PO TIDWM 12/06/20 Cefpodoxime Proxetil 100 mg PO Q48H #3 tablet 12/22/20 Heparin [Heparin 1,000 units/mL *] 6,000 unit IV EVERY HD PRN vial 12/22/20 - Past Medical/Surgical History Diabetic: Yes -: COPD -: Hypertension -: CAD, CABG x4 vessels (August 2017) -: Diabetes mellitus type 2, insulin-dependent -: Chronic combined systolic/diastolic CHF -: Uterine cancer status post hysterectomy -: Chronic renal disease, stage IV -: TB as a child - Negative 2017 -: Hyperlipidemia -: Iron deficiency anemia -: WEST -: ESRD on HD -: Rectal surgery -: Hysterectomy -: Cholecystectomy -: Gastric surgery -: Appendectomy -: CABG x4 vessel -: RLE Femoral popliteal bypass -: Left great toe amputation Psychosocial/ Personal History: The patient is a . Her son lives with her. She has 3 children. - Family History Brother -: Heart disease, Hypertension, Cancer Notes: Father -: Heart disease, Lung disease, Cancer Notes: - Prostate surgery - Hemorrhage Mother -: GI disease Notes: Sister -: Heart disease Notes: - Respiratory failure - Social History Smoking Status: Never smoker Alcohol use: No CD- Drugs: No Caffeine use: Yes Place of Residence: Home Review of Systems General: Weakness, Malaise Eyes: Unremarkable ENT: Unremarkable Respiratory: Shortness of Breath, SOB with Excertion Cardiovascular: Chest Pain Gastrointestinal: Unremarkable Genitourinary: Unremarkable Musculoskeletal: Unremarkable Integumentary: Unremarkable Neurological: Weakness, Numbness Lymphatics: Unremarkable Physical Examination - Physical Exam General: Alert, In no apparent distress, Oriented x3 HEENT: Atraumatic, PERRLA, Mucous membr. moist/pink, EOMI, Sclerae nonicteric Neck: Supple, 2+ carotid pulse no bruit, No LAD, Without JVD or thyroid abnormality Respiratory: Clear to auscultation bilaterally, Normal air movement Cardiovascular: Regular rate/rhythm, Normal S1 S2 Capillary refill: <2 Seconds Gastrointestinal: Normal bowel sounds, No tenderness Musculoskeletal: No tenderness Integumentary: No rashes Neurological: Normal gait, Normal speech, Normal strength at 5/5 x4 extr, Normal tone, Normal affect Lymphatics: No axilla or inguinal lymphadenopathy External genitalia: Deferred Rectal: Deferred - Studies Laboratory Data (last 24 hrs) 12/26/20 10:37: PT 14.6 H, INR 1.27 12/26/20 10:37: WBC 7.80 D, Hgb 11.3 L, Hct 35.1 L, Plt Count 193 D 12/26/20 10:37: Sodium 133 L, Potassium 4.9, BUN 36 H, Creatinine 3.08 H, Glucose 176 H, Magnesium 1.8, Total Bilirubin 0.3, AST 17, ALT 17, Alkaline Phosphatase 119 H Assessment and Plan - Plan --Chest pain. Likely atypical. Will trend troponin. Telemetry to monitor for any significant arrhythmia. --ESRD. Nephrology consulted. 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 --Acute on chronic combined CHF. Continue home medications. Daily weight and strict I/O. --HLD. Continue statin. --Hypertension. Stable. Continue home medications. --DM2 with neuropathy. BS monitoring with sliding scale insulin. Continue gabapentin for her neuropathy. --History of CAD with CABG. Continue aspirin and statin. --JESSICA. Continue home medication --DVT prophylaxis with heparin subQ I have had discussion about advanced directives with the patient during this hospital admission. Addressed code status and goals of care. Spent more than 30 minutes. Case discussed withpatient and nurse. The following document was completed using voice recognition software. This can produce management and budget analyst errors that can at times significantly distort words and phrases. Please interpret any aspect of the note that is nonsensical in light of this fact. Discharge Plan: Home Plan to discharge in: 48 Hours - Advance Directives Does patient have a Living Will: No Does patient have a Durable POA for Healthcare: Yes - Code Status/Comfort Care Code Status Assessed: Yes Code Status: Full Code Physician Review: Patient Assessed, Agree with Above Assessment and Plan Critical Care: No
[2020-12-26] MEDS ORDERED: DICYCLOMINE HCL 10 MG CAP PO PRN (15:07)
--- NOTE | 2020-12-26 16:13 | CON ---
Date of Consultation: 12/26/2020 Reason For Consultation: Elevated BUN and creatinine, fluid over volume. History Of Present Illness: This is a pleasant 65-year-old female with significant past medical hist ory of CAD status post CABG, complicated with congestive heart failure, end-stage renal disease, on h emodialysis, TTS, secondary hyperparathyroidism, diabetes complicated with neuropathy and nephropathy , COPD, edema, the patient was in the dialysis after she received the Venofer and the Epogen, the pat ient apparently started reacting abnormal with numbness, tingling over the lips and itching with ches t pain. For that reason, referred to the hospital. The patient found to be over volume. For that r larissa, we have been consulted. The patient did not do dialysis. Chest x-ray showed over volume with elevation in troponin. The pat ient was started on heparin drip. Past Medical History: Includes; 1.CAD status post CABG. 2.End-stage renal disease, on dialysis TTS. 3.Secondary hyperparathyroidism. 4.Diabetes. 5.COPD. 6.Chronic leg edema. Past Surgical History: Includes CABG, cholecystectomy, PermCath, rectal surgery. Allergies: TO VANCOMYCIN, TRAMADOL, TRAZODONE, NITROGLYCERINE, AND MORPHINE. Family History: Positive for hypertension. Social History: Denied smoking, denied drinking, denied drugs abuse. Review of Systems: Head and Neck: No red eye. No ear pain. GI: No nausea. No vomiting. : No polyuria. No dysuria. No hematuria. Linter Saw Sharpener: No vaginal discharge. Respiratory: Has shortness of breath. Cardiovascular: Has leg swelling. Endocrine: No polydipsia. Skin: No rash. Neuro: Has altered mental status. Musculoskeletal: No joint pain. Home Medications: Include Renvela, lisinopril, isosorbide, hydralazine, gabapentin, Lasix, Plavix, a nd aspirin. Physical Examination: Vital Signs: When I saw the patient; blood pressure of 110/70, pulse of 88. Chest: Crackles bilateral. Heart: S1, S2. Systolic murmur. Abdomen: Soft, nontender. Extremity: +2 edema. Neurologic: Alert. No focality. Laboratory Data: Chest x-ray; cardiomegaly with congestion, right-sided pleural effusion. Sodium 13 3, potassium 4.9, bicarb 27, BUN 36, creatinine 3, calcium 8.5. H and H 11.3/35. Assessment And Plan: 1.End-stage renal disease with over volume. We will arrange for the dialysis today. We will challe nge the patient. 2.Hypertension. We will utilize blood pressure for more ultrafiltration. 3.Secondary hyperparathyroidism. We will resume her Renvela. 4.Anemia of chronic kidney disease. No need for BRONWYN. 5.Possible allergic reaction to Venofer. We will monitor 24 hours. 6.Hyponatremia secondary to dilutional. Will be corrected with dialysis. We will challenge. Thank you, Dr. Nettles for allowing us to participate in the care of your patient. GAMA Voice ID: [id number] Report ID: [id number]
[2020-12-26 16:38] VITALS: BMI 28.6
[2020-12-26] MEDS: LIPASE/PROTEASE/AMYLASE CAP PO SCH (17:00)
[2020-12-26] MEDS: SEVELAMER CARBONATE 800 MG TABLET PO SCH (17:00)
[2020-12-26] MEDS: FUROSEMIDE 20 MG TABLET PO SCH (17:00)
[2020-12-26 17:08] LABS: Thyroid Stimulating Hormone 3.52 uIU/mL (0.360-3.740)
[2020-12-26] MEDS: CODEINE 30MG/APAP 300MG TAB PO PRN (17:20)
[2020-12-26] MEDS ORDERED: CODEINE 30MG/APAP 300MG TAB ONE (17:26)
[2020-12-26] MEDS ORDERED: FUROSEMIDE 40 MG TABLET ONE (17:26)
[2020-12-26] MEDS ORDERED: FUROSEMIDE 40 MG/4 ML VIAL ONE (17:26)
[2020-12-26] MEDS: IPRATROPIUM BROM 0.5MG/2.5ML NEB SCH (20:00)
[2020-12-26] MEDS ORDERED: LACTOBACILLUS/ACIDOPHILUS TAB PO SCH (21:00)
[2020-12-26] MEDS ORDERED: LACTOBACILLUS ACIDOPHILUS PO SCH (21:00)
[2020-12-26] MEDS: HEPARIN 5000 UNIT/ML 1 ML VIAL SQ SCH (21:41)
[2020-12-26] MEDS: HYDROCODONE/APAP 10/325 TAB PO PRN (21:46)
[2020-12-26] MEDS: ATORVASTATIN 40 MG TAB PO SCH (21:46)
[2020-12-26] MEDS: HYDRALAZINE HCL 25 MG TABLET PO SCH (21:46)
[2020-12-26] MEDS: GABAPENTIN 100 MG CAP PO SCH (21:46)
[2020-12-27] MEDS: IPRATROPIUM BROM 0.5MG/2.5ML NEB SCH ×4 (02:00→20:00)
[2020-12-27] MEDS: HYDROCODONE/APAP 10/325 TAB PO PRN (03:09)
[2020-12-27] MEDS ORDERED: PROMETHAZINE INJ 25 MG/ML AMP IV PRN (05:30)
[2020-12-27 07:02] LABS: Absolute Lymphocytes (CBC) 0.8 K/uL (0.7-4.9); Basophils % 0.5 % (0-1.3); Hematocrit 35.1 % (36.0-45.0); Lymphocytes % 8.8 % (15.3-44.8); MPV 6.7 fL (7.6-11.3); RBC Red Blood Cell Count 4.07 M/uL (3.86-4.86)
[2020-12-27 07:03] LABS: Protime INR 1.05
[2020-12-27 08:11] LABS: Blood Morphology Comment NOT SEEN (NOT SEEN); Platelet Estimate ADEQ
[2020-12-27] MEDS: ISOSORBIDE DINITRATE 30 MG PO SCH (09:00)
[2020-12-27] MEDS ORDERED: PRENATAL VIT PO SCH (09:00)
[2020-12-27] MEDS: FLUTICASONE IH SCH (09:00)
[2020-12-27] MEDS ORDERED: FE FUMARATE PO SCH (09:00)
[2020-12-27] MEDS ORDERED: [UNRECOGNIZED DRUG - OTHER] PO SCH (09:00)
[2020-12-27] MEDS ORDERED: PRENATAL VITAMIN PO SCH (09:00)
[2020-12-27] MEDS ORDERED: lisinopriL 5 MG TAB PO SCH (09:00)
[2020-12-27] MEDS: LIPASE/PROTEASE/AMYLASE CAP PO SCH ×3 (09:13→16:55)
[2020-12-27] MEDS: HYDRALAZINE HCL 25 MG TABLET PO SCH (09:14)
[2020-12-27] MEDS: HEPARIN 5000 UNIT/ML 1 ML VIAL SQ SCH ×2 (09:14→21:15)
[2020-12-27] MEDS: CLOPIDOGREL 75 MG TABLET PO SCH (09:14)
[2020-12-27] MEDS: GABAPENTIN 100 MG CAP PO SCH ×2 (09:14→21:15)
[2020-12-27] MEDS: FUROSEMIDE 20 MG TABLET PO SCH ×2 (09:14→16:54)
[2020-12-27] MEDS: ASPIRIN 81 MG CHEWABLE TABLET PO SCH (09:14)
[2020-12-27] MEDS: SEVELAMER CARBONATE 800 MG TABLET PO SCH ×3 (09:14→16:55)
--- NOTE | 2020-12-27 11:33 | PN ---
Date of Progress Note: 12/27/2020 Subjective: The patient was admitted with altered mental status, anaphylactic reaction to Venofer. In the dialysis, the patient yesterday was over volume, tried to dialyze, the patient refused dialysis. Today, complaining from shortness of breath, leg swelling. Physical Examination: Vital Signs: Blood pressure 149/73, pulse of 84, afebrile. Chest: Crackles bilateral. Heart: S1, S2. Regular. Systolic murmur. Abdomen: Soft, nontender. Extremity: Compression wrap both legs. Neurologic: Alert. No focality. No tremor. Laboratory Data: H and H 11.4/35.1. Sodium 133, potassium 5, bicarb 25, BUN 42, creatinine 3.3, GFR of 14, calcium 8.3. Current Medications: The patient on include aspirin, promethazine, Plavix, atorvastatin, hydralazine 25 t.i.d., lisinopril 5 daily, gabapentin, Lasix 40 b.i.d., Renvela 2 tablets with each meal, breathing treatment, codeine, hydrocodone. Assessment And Plan: 1. End-stage renal disease with over volume. I am going to go ahead and dialyze the patient today. We will challenge the patient to establish better volume control. 2. Hypertension, controlled, optimal. I am going to go ahead and discontinue hydralazine, increase lisinopril 20 mg daily given the cardiac history of the patient. 3. Hyperkalemia. The patient is going to be dialyzed on low-potassium bath. 4. Anemia of chronic kidney disease. No need for BRONWYN. 5. Secondary hyperparathyroidism. Continue Renvela. 6. Hyponatremia, dilutional, going to be corrected with dialysis. 7. Congestive heart failure with exacerbation. We will try to utilize blood pressure for more ultrafiltration. We will challenge the patient today, continue Lasix, and we will follow up the patient. Increase lisinopril to 20 mg. the patient is going to be cleared from the Renal standpoint to be discharged after dialysis. Time spent examining the patient [id number] placing order reviewing data including radiology and lab other consult discussing the case with the patient discussed the case with the teamcenter solution architect including nursing discussed with all of our subspecialty and hospitalist 35-minute MA/MODL Voice ID: [id number] Report ID: [id number]
--- NOTE | 2020-12-27 13:36 | P.DS ---
Admission Date: 12/26/20 Discharge Date: 12/28/20 Disposition: AMA-LEFT AGAINST MEDICAL ADVIC Discharge Condition: FAIR Reason for Admission: numbness / reaction during dialysis Consultations: Nephrology - Dr. Fernando Procedures: CXR (12/26): Right-sided pleural effusion with atelectasis similar to December 20 imaging. Right base infiltrate could be masked. Heart, vasculature and lung markings overall are prominent suggesting a component of mild failure/ volume overload. Problem list Acute numbness/tingling, resolved Acute on chronic combined CHF CAD s/p CABG / stent Hypertension DM2 with neuropathy, insulin-dependent HLD Brief History of Present Illness: 65-year-old female with a past medical history significant for ESRD, HLD, HTN, CHF, DM 2 with Neuropathy, CAD, CABG, JESSICA, who presents with complaint of chest pain onset this morning. Patient reported that after receiving Epogen injection in preparation for dialysis. Shortly after patient started having chest pain, facial numbness, tingling in the lips, upper\lower extremity numbness and weakness. Patient reported that she could barely walk. Patient reported that chest pain is located in the substernal chest area. Patient rated pain as 5/10 in severity. Patient reports associated signs and symptoms of shortness of breath and bilateral lower extremity edema worse on the right side. Patient denies any other signs and symptoms. Hospital Course: Patient's symptoms resolved in the ED. Admitted to hosptial to undergo dialysis and observe overnight. Patient refused dialysis on the day of admission and the following day. She initially agreed to dialysis on 12/28, however when it was time, she remembered/found out she was having a home inspection that she needed to be at otherwise would lose her home. She did not want to undergo dialysis or any other treatment other than requesting pain medication. She decided to leave against medical advice despite several attempts to reason with her. She stated she would resume her typical dialysis schedule. Vital Signs/Physical Exam: Physical exam GEN: Alert, oriented, NAD HEENT: Normal conjunctiva, sclera anicteric CV: Regular rate and rhythm, 2+ b/l lower extremity edema, mild periorbital edema Pulm: Nonlabored respiration on room air, diminished bilaterally ABD: Soft, nontender, nondistended Integumentary: No rashes Neuro: Normal speech, normal affect Temp Pulse Resp BP Pulse Ox 97.1 F 84 16 149/73 H 97 12/27/20 08:00 12/27/20 08:00 12/27/20 08:00 12/27/20 08:00 12/27/20 08:00 Laboratory Data at Discharge: WBC 9.30 K/uL (4.3-10.9) D 12/27/20 06:23 Hgb 11.4 g/dL (12.0-15.0) L 12/27/20 06:23 Hct 35.1 % (36.0-45.0) L 12/27/20 06:23 Plt Count 211 K/uL (152-406) 12/27/20 06:23 PT 12.1 SECONDS (9.5-12.5) 12/27/20 06:23 INR 1.05 12/27/20 06:23 APTT > 400.0 SECONDS (24.3-36.9) H* 12/26/20 16:54 Sodium 133 mmol/L (136-145) L 12/27/20 06:23 Potassium 5.0 mmol/L (3.5-5.1) 12/27/20 06:23 BUN 42 mg/dL (7-18) H 12/27/20 06:23 Creatinine 3.31 mg/dL (0.55-1.3) H 12/27/20 06:23 Glucose 143 mg/dL (74-106) H 12/27/20 06:23 Magnesium 1.8 mg/dL (1.8-2.4) 12/26/20 10:37 Total Bilirubin 0.3 mg/dL (0.2-1.0) 12/26/20 10:37 AST 17 U/L (15-37) 12/26/20 10:37 ALT 17 U/L (12-78) 12/26/20 10:37 Alkaline Phosphatase 119 U/L (45-117) H 12/26/20 10:37 Troponin I 0.03 ng/mL (0.0-0.045) 12/27/20 06:23 Triglycerides 76 mg/dL (<150) 12/26/20 15:00 Cholesterol 116 mg/dL (<200) 12/26/20 15:00 HDL Cholesterol 67 mg/dL (40-60) H 12/26/20 15:00 Cholesterol/HDL Ratio 1.73 12/26/20 15:00 Home Medications: Aspirin 81 mg PO DAILY 06/13/20 Clopidogrel Bisulfate [Plavix*] 75 mg PO DAILY 06/13/20 Fluticasone [Flovent Hfa 110*] 2 puff IN DAILY 06/13/20 Cholestyramine (with Sugar) [Cholestyramine Packet] 1 packet PO DAILY PRN Furosemide [Lasix*] 40 mg PO BID 06/14/20 Gabapentin [Neurontin*] 100 mg PO BID 06/14/20 Lactobacillus Acidophilus [Acidophilus] 1 each PO TID #90 capsule 07/19/20 Lipase/Protease/Amylase [Heather Turpin 12,000 Units Capsule] 3 cap PO TIDWM #270 cap 07/19/20 Medihoney [Medihoney Woundcare Gel*] 1 appl TOP TuThSa@0900 #1 tube 07/19/20 Ipratropium Neb [Atrovent*] 0.5 mg NEB [id number] #60 amp 10/12/20 Isosorbide Dinitrate 30 mg PO DAILY #30 tablet 10/12/20 Codeine/APAP [Tylenol #3*] 1 tab PO Q6H PRN 10 Days #30 tab 12/06/20 Dicyclomine HCl 1 tab PO Q6H PRN 12/06/20 Vit/Fe Fumarate/FA [ 1 Plus 1 Tablet] 1 tab PO DAILY 12/06/20 Sevelamer Carbonate [Renvela*] 2 tab PO TIDWM 12/06/20 Cefpodoxime Proxetil 100 mg PO Q48H #3 tablet 12/22/20 Heparin [Heparin 1,000 units/mL *] 6,000 unit IV EVERY HD PRN vial 12/22/20 lisinopriL [Prinivil*] 20 mg PO DAILY 30 Days #30 tab 12/27/20 New Medications: lisinopriL [Prinivil*] 20 mg PO DAILY 30 Days #30 tab Physician Discharge Instructions: Your chest pain was evaluated and you had an EKG without any new changes and troponin (Cardiac enzymes) were normal. The rest of your workup and labs were otherwise ok / at your baseline. There was no evidence of infection. Your episode at the dialysis center may have likely been a reaction to the IV iron. You did not have any further events. You refused dialysis here and left against medical advice Your blood pressure medication was changed (lisinopril increased, and hydralazine discontinued per Dr. Fernando). Please continue dialysis as previously scheduled. Please f/u with nephrology in the next few weeks. Diet: ADA Activity: Ad shira Followup: Sharri Fernando MD [ACTIVE - CAN ADMIT] - Time spent managing pt's care (in minutes): 45
--- NOTE | 2020-12-27 16:22 | P.PN ---
Date of Service: 12/27/20 Subjective Patient states she feels slightly better today, felt like she was dying yesterday. She says she still feels "sick", cannot be any more specific forming, states she has some aches throughout her body. Labs appear at patient's baseline She refused dialysis yesterday, currently agreeable to dialysis today ROS: 10 point review of system otherwise negative Physical exam GEN: Alert, oriented, NAD HEENT: Normal conjunctiva, sclera anicteric CV: Regular rate and rhythm, 2+ b/l lower extremity edema, mild periorbital edema Pulm: Nonlabored respiration on room air, diminished bilaterally ABD: Soft, nontender, nondistended Integumentary: No rashes Neuro: Normal speech, normal affect Problem list Chest pain Acute numbness/tingling, resolved Acute on chronic combined CHF CAD s/p CABG / stent Hypertension DM2 with neuropathy, insulin-dependent HLD Chest pain, with no significant changes on EKG, troponins normal/trended down Monitor on telemetry, no significant arrhythmias overnight Has not had a repeat episode of her numbness/tingling Still feels "sick" For dialysis today, discussed with nephrology, okay from their standpoint for patient be discharged after dialysis Discussed with patient, initially agreeable to dialysis, however at time of dialysis, patient states she felt too sick and refused again Patient unable to be more specific on her symptoms. Continue current medications, discontinue [place] Dispo: Anticipate discharge home tomorrow after dialysis
--- NOTE | 2020-12-27 16:59 | EKG ---
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 Heavy Service: FERNANDA MEASUREMENT RESULTS: Intervals: Rate: 79 NC: 192 QRSD: 112 QT: 412 QTc: 472 [place]ois: P: 61 NC: 192 QRS: 73 T: 160 INTERPRETIVE STATEMENTS: Sinus rhythm with premature atrial complexes with aberrant conduction Anterior infarct, age undetermined ST & T wave abnormality, consider lateral ischemia Abnormal ECG Compared to ECG 12/20/2020 20:04:00 Atrial premature complex(es) now present Aberrant conduction of supraventricular beat(s) now present Myocardial infarct finding now present First degree AV block no longer present Right-axis deviation no longer present Incomplete right bundle-branch block no longer present ST (T wave) deviation still present Possible ischemia still present Electronically Signed On 12-27-20 16:58:43 CDT by Taj Raymond
[2020-12-27] MEDS ORDERED: DIPHENHYDRAMINE 25 MG TAB/CAP PO PRN (17:37)
[2020-12-27] MEDS: CODEINE 30MG/APAP 300MG TAB PO PRN (19:08)
[2020-12-27] MEDS: ATORVASTATIN 40 MG TAB PO SCH (21:15)
[2020-12-28] MEDS: IPRATROPIUM BROM 0.5MG/2.5ML NEB SCH ×3 (02:00→13:34)
[2020-12-28 06:16] LABS: Absolute Lymphocytes (CBC) 1.9 K/uL (0.7-4.9); Basophils % 0.7 % (0-1.3); Hematocrit 33.5 % (36.0-45.0); Lymphocytes % 29.1 % (15.3-44.8); MPV 6.7 fL (7.6-11.3); RBC Red Blood Cell Count 3.87 M/uL (3.86-4.86)
[2020-12-28 06:42] LABS: Albumin 2.6 g/dL (3.4-5.0); Bilirubin Total 0.4 mg/dL (0.2-1.0); Magnesium 1.7 mg/dL (1.8-2.4); Protein, Total 6.7 g/dL (6.4-8.2)
[2020-12-28 07:03] LABS: Potassium 5.9 mmol/L (3.5-5.1)
[2020-12-28] MEDS ORDERED: lisinopriL 20 MG TAB PO SCH (09:00)
[2020-12-28] MEDS: ISOSORBIDE DINITRATE 30 MG PO SCH (09:00)
[2020-12-28] MEDS: FLUTICASONE IH SCH (09:00)
[2020-12-28] MEDS: ASPIRIN 81 MG CHEWABLE TABLET PO SCH (10:12)
[2020-12-28] MEDS: HEPARIN 5000 UNIT/ML 1 ML VIAL SQ SCH (10:12)
--- NOTE | 2020-12-28 10:12 | P.PN ---
Subjective Date of Service: 12/28/20 Chief Complaint: Chest pain , low back pain difficulty ambulating, yesterday we DC hydralazi Subjective: Other (Patient complaint complaining of from low back pain patient had fall yesterday) Review of Systems Cardiovascular: Orthopnea, Edema Musculoskeletal: Neck Pain, Shoulder Pain, Back Pain, Pedal edema Physical Examination - Vital Signs Temperature: 97.9 F Blood Pressure: 146/75 Pulse: 69 Respirations: 20 Pulse Ox (%): 98 - Physical Exam General: Alert HEENT: Atraumatic Neck: Supple, JVD not distended, Without JVD or thyroid abnormality Respiratory: Crackles/rales Cardiovascular: Normal S1 S2, Other (Bilateral leg swelling , mild bilateral compression wrap), Edema, Systolic murmur Gastrointestinal: Normal bowel sounds, No ascites, No tenderness, No masses Musculoskeletal: No clubbing, No warmth Neurological: Normal gait, Cranial nerves 3-12 intact, Normal reflexes 2+, Abnormal gait Assessment And Plan Discharge Plan: Home Physician Review Additional Text: Current Medications: The patient on include aspirin, promethazine, Plavix, atorvastatin, lisinopril 20daily, gabapentin, Lasix 40 b.i.d., Renvela 2 tablets with each meal, breathing treatment, codeine, hydrocodone. Assessment And Plan: 1. End-stage renal disease with over volume. Hyperkalemia, patient refused dialysis yesterday because of the pain : I had long discussion with the patient about the need of dialysis especially with the present of hyperkalemia and over volume the risk of from cardiac arrest patient verbalized understanding agreed to do dialysis today We will proceed with dialysis today on low potassium bath We will challenge the patient Patient will be clear from the renal standpoint for DC planning after dialysis . 2. Hypertension, controlled, not optimal. Status post status post discontinue hydralazine, and increase lisinopril 20 mg daily given the cardiac history of the patient. We will follow-up blood pressure after dialysis today 3. Hyperkalemia. The patient is going to be dialyzed on low-potassium bath. 4. Anemia of chronic kidney disease. No need for BRONWYN. 5. Secondary hyperparathyroidism. Continue Renvela. 6. Hyponatremia, dilutional, going to be corrected with dialysis. 7. Congestive heart failure with exacerbation. We will try to utilize blood pressure for more ultrafiltration. We will challenge the patient today, continue Lasix, and we will follow up the patient. Increase lisinopril to 20 mg. the patient is going to be cleared from the Renal standpoint to be discharged after dialysis. Time spent examining [id number] the patient placing order, discussing with the patient, discussing with the staff include nursing discussing with all of our subspecialty and team care including hospitalist 35-minute
[2020-12-28] MEDS: GABAPENTIN 100 MG CAP PO SCH (10:13)
[2020-12-28] MEDS: FUROSEMIDE 20 MG TABLET PO SCH (10:13)
[2020-12-28] MEDS: CLOPIDOGREL 75 MG TABLET PO SCH (10:13)
[2020-12-28] MEDS: SEVELAMER CARBONATE 800 MG TABLET PO SCH ×2 (10:13→12:50)
[2020-12-28] MEDS: LIPASE/PROTEASE/AMYLASE CAP PO SCH ×2 (10:13→12:50)
[2020-12-28] MEDS: CODEINE 30MG/APAP 300MG TAB PO PRN (12:49)
[2020-12-28 13:30] VITALS: O2SAT 99
[2020-12-28] MEDS ORDERED: INSULIN -REGULAR HUMAN 50 UNIT/0.5 ML ML IV ONE (14:08)
[2020-12-28] MEDS ORDERED: D50W 25 GM/50 ML SYRINGE IV PRN (14:08)
[2020-12-28] MEDS ORDERED: GLUCAGON 1 MG/VIAL IM PRN (14:08)
[2020-12-28] MEDS ORDERED: D50W 25 GM/50 ML SYRINGE IV ONE (14:10)
[2020-12-28] MEDS ORDERED: ALBUTEROL 2.5 MG/3 ML NEB SOL NEB ONE (14:10)
[2020-12-28 14:33] VITALS: BP 186/74; TEMP 97.6
[2020-12-28] MEDS ORDERED: ALBUTEROL 2.5 MG/3 ML NEB SOL ONE (15:14)
== END 2020-12-28 16:26 | disposition left against medical advice (07) | DRG 291 ==
LOC: ER 10:24 → ERHOLD 13:18 → 2ND 17:56
PROVIDERS: ADMIT Hospitalist; ATTEND Hospitalist
DX: I13.2 Hypertensive heart and chronic kidney disease with heart failure and with stage 5 chronic kidney disease, or end stage renal disease (principal); I50.43 Acute on chronic combined systolic (congestive) and diastolic (congestive) heart failure; N18.6 End stage renal disease; N25.81 Secondary hyperparathyroidism of renal origin; E87.1 Hypo-osmolality and hyponatremia; R07.9 Chest pain, unspecified; E11.22 Type 2 diabetes mellitus with diabetic chronic kidney disease; R20.0 Anesthesia of skin; T45.4X5A Adverse effect of iron and its compounds, initial encounter; I25.10 Atherosclerotic heart disease of native coronary artery without angina pectoris; E11.40 Type 2 diabetes mellitus with diabetic neuropathy, unspecified; E78.5 Hyperlipidemia, unspecified; E87.5 Hyperkalemia; D63.1 Anemia in chronic kidney disease; Z95.1 Presence of aortocoronary bypass graft; Z95.5 Presence of coronary angioplasty implant and graft; Z53.29 Procedure and treatment not carried out because of patient's decision for other reasons; Z85.42 Personal history of malignant neoplasm of other parts of uterus
CPT/HCPCS: 17250; 36415; 71045; 80048; 80053; 80061; 80076; 82947; 83036; 83735; 83880; 84439; 84443; 84484; 85025; 85610; 85730; 93005; 94640; 96374; 96375; 99214; 99285; J1644; J1940; J2405; J2550; J3010

== ENCOUNTER 2021-01-02 10:56 | Emergency (ER) | payer OTHER ==
[2021-01-02 11:17] LABS: Absolute Lymphocytes (CBC) 1.2 K/uL (0.7-4.9); Basophils % 2.1 % (0-1.3); Lymphocytes % 24.2 % (15.3-44.8); MPV 6.5 fL (7.6-11.3); RBC Red Blood Cell Count 3.82 M/uL (3.86-4.86)
--- NOTE | 2021-01-02 11:21 | RAD REPORT ---
EXAM DESCRIPTION: RAD - Chest Single View - 01/02/2021 11:14 am CLINICAL HISTORY: CHEST PAIN COMPARISON: 12/26/2020 FINDINGS: Lines: Left IJ approach dialysis catheter. Lungs: No evidence of edema or pneumonia. Pleural: Unchanged right pleural effusion . Cardiac: Similar cardiomegaly Bones: No acute fractures. Other: IMPRESSION: Unchanged right-sided pleural effusion and presumably underlying atelectasis.
[2021-01-02 11:25] LABS: Protime INR 1.2
[2021-01-02] MEDS ORDERED: FUROSEMIDE 40 MG/4 ML VIAL ONE (11:38)
[2021-01-02] MEDS ORDERED: FUROSEMIDE 20 MG/ 2ML VIAL ONE (11:38)
[2021-01-02 12:05] LABS: Albumin 2.6 g/dL (3.4-5.0); Bilirubin Direct 0.2 mg/dL (0-0.2); Bilirubin Total 0.5 mg/dL (0.2-1.0); Potassium 4.6 mmol/L (3.5-5.1); Protein, Total 6.8 g/dL (6.4-8.2)
[2021-01-02] MEDS ORDERED: HYDROCODONE/APAP 10/325 TAB ONE (12:40)
--- NOTE | 2021-01-02 15:52 | EDPHYS ---
Physician Documentation [facility] Name: Christy Priest Age: 65 yrs Sex: Female : 1955 Arrival Date: 01/02/2021 Time: 11:03 Bed 7 Private MD: ED Physician Jurgen Nettles HPI: 01/02 15:46 This 65 yrs old Female presents to ER via EMS with complaints of Chest Pain. rn 15:46 The patient or guardian reports chest pain that is located primarily in the chest rn diffusely. Onset: just prior to arrival. The pain does not radiate. Associated signs and symptoms: Pertinent positives: None. Pertinent negatives: abdominal pain, shortness of breath, syncope, vomiting. The chest pain is described as aching. Duration: The patient or guardian reports a single episode, that is still ongoing. Modifying factors: The symptoms are alleviated by nothing. the symptoms are aggravated by nothing. Severity of pain: At its worst the pain was moderate in the emergency department the pain has improved. The patient has experienced similar episodes in the past. The patient has been recently been admitted at [facility]. Patient states was getting dialysis, about an hour in when began to have diffuse chest pain. States this is happened in the last 3 dialysis sessions. Admitted after the last time this happened on Friday and states told everything else looked okay for the heart. Denies any recent illness. No productive cough. No fever. Feels much better now.. Historical: - Allergies: 11:05 Clindamycin; hb 11:05 Morphine; hb 11:05 Nitroglycerin; hb 11:05 tramadol; hb 11:05 Trazodone; hb 11:05 Vancomycin; hb 11:05 Vicodin; hb - PMHx: 11:05 Anemia; Congestive heart failure; diabetes mellitus; End stage renal disease; hb Hypertensive disorder; Irritable bowel syndrome; kidney disease; - Immunization history:: Adult Immunizations up to date. - Social history:: Smoking status: Patient denies any tobacco usage or history of. - Family history:: not pertinent. - Hospitalizations: : The patient was recently seen at [facility]. ROS: 15:46 Constitutional: Negative for fever, chills, and weight loss, Eyes: Negative for injury, rn pain, redness, and discharge, Neck: Negative for injury, pain, and swelling, Cardiovascular: Negative for palpitations Respiratory: Negative for shortness of breath, cough, wheezing, and pleuritic chest pain, Abdomen/GI: Negative for abdominal pain, nausea, vomiting, diarrhea, and constipation, Back: Negative for injury and pain, : Negative for injury, bleeding, discharge, and swelling, MS/Extremity: Negative for injury and deformity, Skin: Negative for injury, rash, and discoloration, Neuro: Negative for headache, weakness, numbness, tingling, and seizure. Exam: 15:41 ECG was reviewed by the Attending Physician. rn 15:46 Constitutional: This is a well developed patient who is awake, alert, and in no acute rn distress. Head/Face: Normocephalic, atraumatic. Eyes: Periorbital areas with no swelling, redness, or edema. ENT: No stridor Cardiovascular: Regular rate and rhythm. No pulse deficits. Respiratory: No increased work of breathing, no retractions or nasal flaring. Abdomen/GI: Soft, nontender Skin: Warm, dry MS/ Extremity: Pulses equal, no cyanosis. 1+ edema bilateral lower extremities Neuro: Awake and alert, GCS 15, oriented to person, place, time, and situation. Cranial nerves II-XII grossly intact. Motor strength 5/5 in all extremities. Sensory grossly intact. Vital Signs: 11:00 BP 170 / 91; Pulse 82; Resp 24; Temp 98.3; Pulse Ox 74% on R/A; Pain 7/10; hb 11:30 BP 177 / 89; Pulse 82; Resp 18; Pulse Ox 100% ; ch5 13:24 BP 151 / 70; Pulse 75; Resp 15; Pulse Ox 98% on 2 lpm NC; hb 14:24 BP 156 / 78; Pulse 77; Resp 17; Pulse Ox 100% ; hb MDM: 11:03 Patient medically screened. rn 15:46 Differential diagnosis: acute myocardial infarction, acute pericarditis, chest wall rn pain, costochondritis, pleurisy, pneumothorax, Pulmonary edema. Data reviewed: vital signs, nurses notes, lab test result(s), EKG, radiologic studies, plain films, and as a result, I will discharge patient. Data interpreted: equipment monitor phototypesetting: rate is 77 beats/min, rhythm is normal sinus rhythm, regular, with no ectopy, Interpretation: normal rate, normal rhythm, Pulse oximetry: on room air is 96 %. Interpretation: normal. Test interpretation: by ED physician or midlevel provider: ECG, plain radiologic studies, Chest x-ray negative for pneumonia or pneumothorax. Counseling: I had a detailed discussion with the patient and/or guardian regarding: the historical points, exam findings, and any diagnostic results supporting the discharge/admit diagnosis, lab results, radiology results, the need for outpatient follow up, to return to the emergency department if symptoms worsen or persist or if there are any questions or concerns that arise at home. Response to treatment: the patient's symptoms have markedly improved after treatment, and as a result, I will discharge patient. Special discussion: I discussed with the patient/guardian in detail that at this point there is no indication for admission to the hospital. It is understood, however, that if the symptoms persist or worsen the patient needs to return immediately for re-evaluation. ED course: Patient feels much better is sitting up eating and smiling. States ready to go home. No acute findings found today's work-up. No change in ECG.. 01/02 11:04 Order name: Basic Metabolic Panel; Complete Time: 12:12 rn 01/02 11:04 Order name: CBC with Diff; Complete Time: 11: rn 01/02 11:04 Order name: LFT's; Complete Time: 12: rn 01/02 11:04 Order name: NT PRO-BNP; Complete Time: 12: rn 01/02 11:04 Order name: PT-INR; Complete Time: 11:55 rn 01/02 11:04 Order name: XRAY Chest (1 view); Complete Time: 11:55 rn 01/02 11:04 Order name: EKG; Complete Time: 11: rn 01/02 11:04 Order name: Cardiac monitoring; Complete Time: 11: rn 01/02 11:04 Order name: EKG - Nurse/Tech; Complete Time: 11:35 rn 01/02 11:04 Order name: IV Saline Lock; Complete Time: 11: rn 01/02 11:04 Order name: Labs collected and sent; Complete Time: 11: rn 01/02 11:04 Order name: O2 Per Protocol; Complete Time: 11: rn 01/02 11:04 Order name: O2 Sat Monitoring; Complete Time: 11:12 rn EC:41 Rate is 80 beats/min. Rhythm is regular. Extreme Right axis deviation noted. QRS is rn negative in leads I, aVF. UT interval is normal. QRS interval is normal. QT interval is normal. No Q waves. T waves are Inverted in leads I, aVL, V6. No ST changes noted. Clinical impression: NSR w/ Non-specific ST/T Changes and No change from prior ECG. Interpreted by me. Reviewed by me. Administered Medications: 11:17 Drug: Lasix (furosemide) 60 mg Route: IVP; Site: left forearm; ch5 12:43 Follow up: Response: No adverse reaction 5 12:30 Drug: [place] (HYDROcodone-acetaminophen) 10 mg-325 mg 1 tabs Route: PO; ch5 Disposition Summary: 01/02/21 15:51 Discharge Ordered Location: Home rn Problem: new rn Symptoms: have improved rn Condition: Stable rn Diagnosis - Chest pain, unspecified rn - End stage renal disease rn Followup: rn - With: Private Physician - When: As needed - Reason: Recheck today's complaints, Re-evaluation by your physician Discharge Instructions: - Discharge Summary Sheet rn - Nonspecific Chest Pain, Adult rn - Hypertension, Adult rn - End-Stage Kidney Disease rn Forms: - Medication Reconciliation Form rn - Thank You Letter rn - Antibiotic rn pacu - Prescription Opioid Use rn - SBAR form Signatures: Dispatcher [employer] Jurgen Forrest MD MD rn Baxter, Heather, RN RN Davis Villaseñor RN RN [facility]
--- NOTE | 2021-01-02 15:52 | ER ---
Nurse's Notes [facility] Name: Christy Priest Age: 65 yrs Sex: Female : 1955 Arrival Date: 01/02/2021 Time: 11:03 Bed 7 Private MD: Diagnosis: Chest pain, unspecified;End stage renal disease Presentation: 01/02 11:00 Chief complaint: Substernal chest pressure that radiates to right side that started hb during HD, 1L removed. 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 Coronavirus screen: At this time, the client does not indicate any symptoms associated with coronavirus-19. Ebola Screen: No symptoms or risks identified at this time. 11:00 Method Of Arrival: EMS: [facility] hb 11:00 Initial Sepsis Screen: Does the patient meet any 2 criteria? No. Patient's initial hb sepsis screen is negative. Does the patient have a suspected source of infection? No. Patient's initial sepsis screen is negative. Risk Assessment: Do you want to hurt yourself or someone else? Patient reports no desire to harm self or others. Onset of symptoms was January 02, 2021. 11:00 Acuity: DENNY 2 hb Historical: - Allergies: 11:05 Clindamycin; hb 11:05 Morphine; hb 11:05 Nitroglycerin; hb 11:05 tramadol; hb 11:05 Trazodone; hb 11:05 Vancomycin; hb 11:05 Vicodin; hb - PMHx: 11:05 Anemia; Congestive heart failure; diabetes mellitus; End stage renal disease; hb Hypertensive disorder; Irritable bowel syndrome; kidney disease; - Immunization history:: Adult Immunizations up to date. - Social history:: Smoking status: Patient denies any tobacco usage or history of. - Family history:: not pertinent. - Hospitalizations: : The patient was recently seen at [facility]. Screenin:07 Abuse screen: Denies threats or abuse. Denies injuries from another. Nutritional hb screening: No deficits noted. Tuberculosis screening: No symptoms or risk factors identified. Fall Risk Total Merlos Fall Scale indicates Low Risk Score (25-44 pts). Fall prevention measures have been instituted. Side Rails Up X 2 Frequent Obs/Assesments occuring As available Patient and Family Educated on Fall Prevention Program and strategies. Assessment: 11:06 General: Appears in no apparent distress. Behavior is calm, cooperative. Pain: Pain hb currently is 7 out of 10 on a pain scale. Neuro: Level of Consciousness is awake, alert, obeys commands, Oriented to person, place, time, situation. Cardiovascular: Patient's skin is warm and dry. Rhythm is regular. Respiratory: Respiratory effort is even, unlabored, Respiratory pattern is regular, symmetrical, tachypnea. GI: No signs and/or symptoms were reported involving the gastrointestinal system. : No signs and/or symptoms were reported regarding the genitourinary system. EENT: No signs and/or symptoms were reported regarding the EENT system. Derm: Skin is pink, warm \T\ dry. Musculoskeletal: No signs and/or symptoms reported regarding the musculoskeletal system. 12:00 Reassessment: Patient appears in no apparent distress at this time. Patient and/or hb family updated on plan of care and expected duration. Pain level reassessed. Patient is alert, oriented x 3, equal unlabored respirations, skin warm/dry/pink. 13:24 Reassessment: Patient appears in no apparent distress at this time. Patient and/or hb family updated on plan of care and expected duration. Pain level reassessed. Patient is alert, oriented x 3, equal unlabored respirations, skin warm/dry/pink. 14:24 Reassessment: Patient appears in no apparent distress at this time. No changes from hb previously documented assessment. Patient and/or family updated on plan of care and expected duration. Pain level reassessed. Patient is alert, oriented x 3, equal unlabored respirations, skin warm/dry/pink. Vital Signs: 11:00 BP 170 / 91; Pulse 82; Resp 24; Temp 98.3; Pulse Ox 74% on R/A; Pain 7/10; hb 11:30 BP 177 / 89; Pulse 82; Resp 18; Pulse Ox 100% ; ch5 13:24 BP 151 / 70; Pulse 75; Resp 15; Pulse Ox 98% on 2 lpm NC; hb 14:24 BP 156 / 78; Pulse 77; Resp 17; Pulse Ox 100% ; hb ED Course: 11:03 Patient arrived in ED. ss 11:03 Jurgen Nettles MD is Attending Physician. rn 11:05 Triage completed. hb 11:06 Arm band placed on. hb 11:07 Patient has correct armband on for positive identification. Bed in low position. Call hb light in reach. Side rails up X2. nuclear monitoring technician on. Pulse ox on. NIBP on. 11:07 Maintain EMS IV. Dressing intact. Good blood return noted. Site clean \T\ dry. Gauge \T\ hb site: 22 LFA. 11:11 Davis Villaseñor, RN is Primary Nurse. ch5 11:14 XRAY Chest (1 view) In Process Unspecified. EDMS 11:25 EKG done, by ED staff, reviewed by Jurgen Nettles MD. mb4 16:23 No provider procedures requiring assistance completed. IV discontinued, intact, ss bleeding controlled, No redness/swelling at site. Pressure dressing applied. Administered Medications: 11:17 Drug: Lasix (furosemide) 60 mg Route: IVP; Site: left forearm; ch5 12:43 Follow up: Response: No adverse reaction ch5 12:30 Drug: [place] (HYDROcodone-acetaminophen) 10 mg-325 mg 1 tabs Route: PO; ch5 Outcome: 15:51 Discharge ordered by . rn 16:23 Discharged to home via ambulance. 16:23 Condition: good 16:23 Discharge instructions given to patient, Instructed on discharge instructions, follow up and referral plans. Demonstrated understanding of instructions, follow-up care. 16:24 Patient left the ED. ss Signatures: Dispatcher [employer] EDJurgen No MD MD rn Smirch, Shelby, RN RN Karma Gooden RN RN hb Baxter, Mackenzie [facility] Davis Villaseñor, RN RN 5
[2021-01-02 16:28] VITALS: TEMP 98.3
[2021-01-02 16:32] VITALS: BP 156/78; O2SAT 100
--- NOTE | 2021-01-03 16:46 | EKG ---
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: MATHIEU MEASUREMENT RESULTS: Intervals: Rate: 80 OR: 182 QRSD: 104 QT: 400 QTc: 461 [place]: P: 67 OR: 182 QRS: 238 T: 132 INTERPRETIVE STATEMENTS: Normal sinus rhythm Right superior axis deviation Anterior infarct, age undetermined ST & T wave abnormality, consider lateral ischemia Abnormal ECG Compared to ECG 12/26/2020 10:35:07 Right superior axis now present Atrial premature complex(es) no longer present Aberrant conduction of supraventricular beat(s) no longer present Myocardial infarct finding still present ST (T wave) deviation still present Possible ischemia still present Electronically Signed On 01-03-21 16:43:04 CDT by Taj Raymond
== END 2021-01-02 16:24 | disposition home or self-care (01) ==
LOC: ER 10:56
DX: R07.9 Chest pain, unspecified (principal); E11.22 Type 2 diabetes mellitus with diabetic chronic kidney disease; I13.2 Hypertensive heart and chronic kidney disease with heart failure and with stage 5 chronic kidney disease, or end stage renal disease; I50.9 Heart failure, unspecified; N18.6 End stage renal disease; Z99.2 Dependence on renal dialysis; Z88.3 Allergy status to other anti-infective agents; Z88.5 Allergy status to narcotic agent; Z88.8 Allergy status to other drugs, medicaments and biological substances
CPT/HCPCS: 93005; 85025; 80048; 36415; 85610; 80076; 83880; 71045; 96374; 99284; J1940 ×2

== ENCOUNTER 2021-01-03 08:05 | Observation (INO) | payer OTHER ==
--- NOTE | 2021-01-03 09:09 | RAD REPORT ---
EXAM DESCRIPTION: RAD - Chest Single View - 01/03/2021 8:56 am CLINICAL HISTORY: COUGH COMPARISON: January 02 TECHNIQUE: AP portable chest image was obtained 01/03/2021 8:56 am . FINDINGS: Interstitial markings are prominent. Right base pleural effusion with right base infiltrat e and/ or atelectasis has not change from comparison. Left-sided double-lumen dialysis catheter is in place. Heart size is prominent but stable. Upper lobe vasculature within normal limits for portable imaging . No pneumothorax. IMPRESSION: Stable right base small to moderate pleural effusion with atelectasis and/or infiltrate at the right base. Parenchymal changes are stable.
[2021-01-03 09:52] LABS: Protime INR 1.15
[2021-01-03 09:59] LABS: Absolute Lymphocytes (CBC) 1.4 K/uL (0.7-4.9); Basophils % 2.5 % (0-1.3); Hematocrit 31.9 % (36.0-45.0); Lymphocytes % 29.3 % (15.3-44.8); MPV 6.6 fL (7.6-11.3); RBC Red Blood Cell Count 3.72 M/uL (3.86-4.86)
[2021-01-03] MEDS ORDERED: CEFTRIAXONE 1000 MG/VIAL ONE (10:08)
[2021-01-03 10:36] LABS: Albumin 2.5 g/dL (3.4-5.0); Bilirubin Direct 0.2 mg/dL (0-0.2); Bilirubin Total 0.3 mg/dL (0.2-1.0); Magnesium 1.7 mg/dL (1.8-2.4); Potassium 5.5 mmol/L (3.5-5.1); Protein, Total 6.7 g/dL (6.4-8.2); Troponin (Emerg Dept Use Only) 0.08 ng/mL (0.0-0.045)
--- NOTE | 2021-01-03 10:54 | EDPHYS ---
Physician Documentation [facility] Name: Christy Priest Age: 65 yrs Sex: Female : 1955 Arrival Date: 01/03/2021 Time: 08:20 Bed 24 Private MD: ED Physician Alessio Parry HPI: 01/03 10:15 This 65 yrs old Female presents to ER via EMS with complaints of FEELS SICK , carlos FLU LIKE. 10:15 The patient or guardian reports cough. Onset: The symptoms/episode began/occurred 2 carlos day(s) ago. Modifying factors: The symptoms are alleviated by nothing. the symptoms are aggravated by activity. ESRD ON HD, ,, FRIDAY. Associated signs and symptoms: Pertinent positives: sore throat. Severity of symptoms: At their worst the symptoms were mild in the emergency department the symptoms are unchanged. Severity of symptoms:. The patient has experienced similar episodes in the past, multiple times. Historical: - Allergies: 08:22 Clindamycin; oh 08:22 Morphine; oh 08:22 Nitroglycerin; oh 08:22 tramadol; oh 08:22 Trazodone; oh 08:22 Vancomycin; oh 08:22 Vicodin; oh - PMHx: 08:22 Anemia; Congestive heart failure; diabetes mellitus; End stage renal disease; oh Hypertensive disorder; Irritable bowel syndrome; kidney disease; - Immunization history:: Adult Immunizations up to date, Flu vaccine is up to date. - Social history:: Smoking status: Patient denies any tobacco usage or history of. - Family history:: not pertinent. ROS: 10:15 Constitutional: Negative for fever, chills, and weight loss, Eyes: Negative for injury, carlos pain, redness, and discharge, ENT: Negative for injury, pain, and discharge, Neck: Negative for injury, pain, and swelling, Cardiovascular: Negative for chest pain, palpitations, and edema, Abdomen/GI: Negative for abdominal pain, nausea, vomiting, diarrhea, and constipation, Back: Negative for injury and pain, : Negative for injury, bleeding, discharge, and swelling, Skin: Negative for injury, rash, and discoloration, Neuro: Negative for headache, weakness, numbness, tingling, and seizure, Psych: Negative for depression, anxiety, suicide ideation, homicidal ideation, and hallucinations, Allergy/Immunology: Negative for hives, rash, and allergies, Endocrine: Negative for neck swelling, polydipsia, polyuria, polyphagia, and marked weight changes. 10:15 Cardiovascular: Positive for palpitations. 10:15 Respiratory: Positive for cough, with no reported sputum, shortness of breath, on exertion. Exam: 10:15 Constitutional: This is a well developed, well nourished patient who is awake, alert, carlos and in no acute distress. Head/Face: Normocephalic, atraumatic. Eyes: Pupils equal round and reactive to light, extra-ocular motions intact. Lids and lashes normal. Conjunctiva and sclera are non-icteric and not injected. Cornea within normal limits. Periorbital areas with no swelling, redness, or edema. ENT: Nares patent. No nasal discharge, no septal abnormalities noted. Tympanic membranes are normal and external auditory canals are clear. Oropharynx with no redness, swelling, or masses, exudates, or evidence of obstruction, uvula midline. Mucous membranes moist. Neck: Trachea midline, no thyromegaly or masses palpated, and no cervical lymphadenopathy. Supple, full range of motion without nuchal rigidity, or vertebral point tenderness. No Meningismus. Chest/axilla: Normal chest wall appearance and motion. Nontender with no deformity. No lesions are appreciated. Cardiovascular: Regular rate and rhythm with a normal S1 and S2. No gallops, murmurs, or rubs. Normal PMI, no JVD. No pulse deficits. Abdomen/GI: Soft, non-tender, with normal bowel sounds. No distension or tympany. No guarding or rebound. No evidence of tenderness throughout. Back: No spinal tenderness. No costovertebral tenderness. Full range of motion. Female : Normal external genitalia. Skin: Warm, dry with normal turgor. Normal color with no rashes, no lesions, and no evidence of cellulitis. Neuro: Awake and alert, GCS 15, oriented to person, place, time, and situation. Cranial nerves II-XII grossly intact. Motor strength 5/5 in all extremities. Sensory grossly intact. Cerebellar exam normal. Normal gait. Psych: Awake, alert, with orientation to person, place and time. Behavior, mood, and affect are within normal limits. 10:15 ECG was reviewed by the Attending Physician. 10:15 Respiratory: mild respiratory distress is noted, Respirations: Breath sounds: bronchial sounds, rhonchi, wheezing: expiratory Respiratory rate: 16 Vital Signs: 08:20 BP 133 / 60; Pulse 75; Resp 16; Temp 99.8(O); Pulse Ox 97% on R/A; oh 13:24 BP 137 / 93; Pulse 80; Resp 17; Pulse Ox 97% on R/A; oh 15:05 BP 129 / 57; Pulse 78; Resp 20; Temp 98.3(O); Pulse Ox 97% on R/A; oh 18:00 BP 144 / 59; Pulse 66; Resp 19; Pulse Ox 97% on R/A; oh MDM: 08:28 Patient medically screened. carlos 10:19 Differential diagnosis: bronchitis, flu, URI. Antibiotic administration: ROCEPHIN. carlos Differential Diagnosis altered mental status, sepsis. Data reviewed: vital signs, nurses notes, lab test result(s), EKG, radiologic studies, plain films. Data interpreted: threat monitoring analyst: rate is 75 beats/min, rhythm is regular, Pulse oximetry: on room air is 97 %. Test interpretation: by ED physician or midlevel provider: ECG, plain radiologic studies. Counseling: I had a detailed discussion with the patient and/or guardian regarding: the historical points, exam findings, and any diagnostic results supporting the discharge/admit diagnosis, lab results, radiology results. 01/03 08:32 Order name: Basic Metabolic Panel [facility] 01/03 08:32 Order name: CBC with Diff [facility] 01/03 08:32 Order name: LFT's [facility] 01/03 08:32 Order name: Magnesium; Complete Time: 10:48 [facility] 01/03 08:32 Order name: NT PRO-BNP; Complete Time: 10:48 [facility] 01/03 08:32 Order name: PT-INR; Complete Time: 10:12 [facility] 01/03 08:32 Order name: Troponin (emerg Dept Use Only); Complete Time: 10:48 [facility] 01/03 08:32 Order name: Lipase; Complete Time: 10:48 [facility] 01/03 08:32 Order name: Blood Culture Adult (2) [facility] 01/03 08:32 Order name: Lactate; Complete Time: 10:12 [facility] 01/03 08:32 Order name: Flu; Complete Time: 10:12 [facility] 01/03 08:32 Order name: Urine Culture [facility] 01/03 08:33 Order name: Basic Metabolic Panel; Complete Time: 10:48 EDMS 01/03 08:32 Order name: XRAY Chest (1 view); Complete Time: 10:12 [facility] 01/03 08:33 Order name: CBC with Automated Diff; Complete Time: 10:12 EDMS 01/03 08:33 Order name: Liver (Hepatic) Function; Complete Time: 10:48 EDMS 01/03 09:48 Order name: SARS-COV-2 RT PCR; Complete Time: 10:48 EDMS 01/03 10:51 Order name: Ferritin; Complete Time: 16:46 [facility] 01/03 10:51 Order name: CRP; Complete Time: 16:46 [facility] 01/03 15:58 Order name: HCV w/reflex PCR EDMS 01/03 15:58 Order name: Hep B Core Ab, Tot/reflex IgM EDMS 01/03 15:58 Order name: Hep B Surface AG w/ Confirm EDMS 01/03 15:58 Order name: Hepatitis B Surface Antibody EDLA 01/03 08:32 Order name: EKG; Complete Time: 08:33 [facility] 01/03 08:32 Order name: Cardiac monitoring; Complete Time: 09:39 [facility] 01/03 08:32 Order name: EKG - Nurse/Tech; Complete Time: 09:39 [facility] 01/03 08:32 Order name: IV Saline Lock; Complete Time: 09:39 [facility] 01/03 08:32 Order name: Labs collected and sent; Complete Time: 09:39 [facility] 01/03 08:32 Order name: O2 Per Protocol; Complete Time: 09:39 [facility] 01/03 08:32 Order name: O2 Sat Monitoring; Complete Time: 09:39 [facility] 01/03 08:32 Order name: Urine Dipstick-Ancillary (obtain specimen) [facility] 01/03 17:25 Order name: Labs - recollect needed: recollect 3 tiger top tubes bd EC:15 Rate is 71 beats/min. Rhythm is regular. QRS [place] is Normal. AR interval is normal. QRS carlos interval is normal. QT interval is normal. No Q waves. T waves are Normal. No ST changes noted. Clinical impression: NSR w/ Non-specific ST/T Changes and No evidence of ischemia. Interpreted by me. Reviewed by me. Administered Medications: 09:00 Drug: Rocephin (cefTRIAXone) 1 grams Route: IV; Rate: per protocol; Site: left oh antecubital; 10:50 Drug: SOLU-Medrol (methylPrednisoLONE) 125 mg Route: IVP; Site: left antecubital; oh 10:50 Drug: Xopenex (levalbuterol) 1.25 mg Route: Inhalation; oh 10:50 Drug: AtroVENT (ipratropium) Aerosol 0.5 mg Route: Inhalation; oh 10:50 Drug: fentaNYL (PF) 25 mcg Route: IVP; Site: left antecubital; oh 10:50 Drug: Zofran (Ondansetron) 4 mg Route: IVP; Site: right antecubital; oh 12:00 Drug: Pepcid (famotidine) 40 mg Route: PO; oh 12:20 Drug: Magnesium Sulfate 1 grams Route: IVPB; Infused Over: 1 hrs; Site: left oh antecubital; 12:20 Drug: Kayexalate (polystyrene) 30 grams Route: PO; oh 12:48 Drug: fentaNYL (PF) 25 mcg Route: IVP; Site: left antecubital; oh 13:50 Drug: REGEN-COV Dose Pack 120 mg/mL-120 mg/mL (EUA) 1 vials Route: IV; Rate: per oh protocol; Site: left antecubital; 20:03 Drug: fentaNYL (PF) 25 mcg Route: IVP; Site: left forearm; ms4 20:03 Drug: Zofran (Ondansetron) 4 mg Route: IVP; Site: left forearm; ms4 Disposition Summary: 01/03/21 10:53 Hospitalization Ordered Hospitalization Status: Observation carlos Provider: Fer Muñiz cha Location: Telemetry/MedSurg (observation) carlos Condition: Fair carlos Problem: new carlos Symptoms: have improved carlos Bed/Room Type: Standard carlos Room Assignment: 404(01/03/21 21:42) rd1 Diagnosis - Weakness carlos - Fever, unspecified carlos - End stage renal disease - ON HD carlos - Hyperkalemia carlos - Hypomagnesemia carlos - Type 2 diabetes mellitus with hyperglycemia carlos - Coronavirus infection, unspecified carlos Forms: - Medication Reconciliation Form carlos - SBAR form carlos Signatures: Dispatcher [employer] EDSvetlana Castro Corey, MD MD cha Dale, Rhonda, RN RN rd1 Pretty Fletcher RN RN ms4 Dayana Johnson RN RN oh Corrections: (The following items were deleted from the chart) 09:48 08:33 CORONAVIRUS+BRZ ordered. EDMS EDMS 21:42 10:53 carlos [address]1
--- NOTE | 2021-01-03 10:54 | ER ---
Nurse's Notes [facility] Name: Christy Priest Age: 65 yrs Sex: Female : 1955 Arrival Date: 01/03/2021 Time: 08:20 Bed 24 Private MD: Diagnosis: Weakness;Fever, unspecified;End stage renal disease-ON HD;Hyperkalemia;Hypomagnesemia;Type 2 diabetes mellitus with hyperglycemia;Coronavirus infection, unspecified Presentation: 01/03 08:20 Chief complaint: EMS states: generalize bodyache. Coronavirus screen: Vaccine status:. oh Ebola Screen: No symptoms or risks identified at this time. Initial Sepsis Screen: Does the patient meet any 2 criteria? No. Patient's initial sepsis screen is negative. Does the patient have a suspected source of infection? No. Patient's initial sepsis screen is negative. Risk Assessment: Do you want to hurt yourself or someone else? Patient reports no desire to harm self or others. Onset of symptoms was January 03, 2021. 08:20 Method Of Arrival: EMS: [facility] oh 08:20 Acuity: DENNY 3 oh Triage Assessment: 08:23 General: Appears uncomfortable, Behavior is calm, cooperative, appropriate for age, oh Reports fatigue for bodyache, states i just want some medicine to rest, i'm aching in my tailbone, back and neck. Pain: Complains of pain in back and neck. Historical: - Allergies: 08:22 Clindamycin; oh 08:22 Morphine; oh 08:22 Nitroglycerin; oh 08:22 tramadol; oh 08:22 Trazodone; oh 08:22 Vancomycin; oh 08:22 Vicodin; oh - PMHx: 08:22 Anemia; Congestive heart failure; diabetes mellitus; End stage renal disease; oh Hypertensive disorder; Irritable bowel syndrome; kidney disease; - Immunization history:: Adult Immunizations up to date, Flu vaccine is up to date. - Social history:: Smoking status: Patient denies any tobacco usage or history of. - Family history:: not pertinent. Screenin:26 Abuse screen: Denies threats or abuse. Nutritional screening: No deficits noted. oh Tuberculosis screening: No symptoms or risk factors identified. Fall Risk Gait-. Assessment: 08:25 General: Reports fatigue for bodyache especially my tailbone, neck and back. "please i oh just need something to rest". 18:35 Reassessment: pt off the floor to dialysis. oh 19:00 Reassessment: assumed care of patient at this time. patient currently in dialysis. ms4 22:05 Reassessment: report called to floor RN. patient to be transported to [facility] after ms4 dialysis is completed. Vital Signs: 08:20 BP 133 / 60; Pulse 75; Resp 16; Temp 99.8(O); Pulse Ox 97% on R/A; oh 13:24 BP 137 / 93; Pulse 80; Resp 17; Pulse Ox 97% on R/A; oh 15:05 BP 129 / 57; Pulse 78; Resp 20; Temp 98.3(O); Pulse Ox 97% on R/A; oh 18:00 BP 144 / 59; Pulse 66; Resp 19; Pulse Ox 97% on R/A; oh ED Course: 08:20 Patient arrived in ED. iw 08:20 Dayana Johnson, RN is Primary Nurse. oh 08:22 Triage completed. oh 08:25 Arm band placed on right wrist. oh 08:28 Alessio Parry MD is Attending Physician. carlos 08:38 Bed in low position. Call light in reach. Side rails up X2. oh 08:56 XRAY Chest (1 view) In Process Unspecified. EDMS 09:39 Basic Metabolic Panel Sent. oh 09:39 CBC with Automated Diff Sent. oh 09:39 Liver (Hepatic) Function Sent. oh 09:39 Flu Sent. oh 09:39 Lactate Sent. oh 09:39 Blood Culture Adult (2) Sent. oh 09:39 Lipase Sent. oh 09:39 Inserted saline lock: 20 gauge in left antecubital area, using aseptic technique. Blood oh collected. 09:44 EKG done, by ED staff, reviewed by Alessio Parry MD. em1 10:51 Alessio Parry MD is Hospitalizing Provider. carlos 10:52 Hospitalizing Provider role handed off by Alessio Parry MD carlos 10:52 Fer Muñiz is Hospitalizing Provider. carlos Administered Medications: 09:00 Drug: Rocephin (cefTRIAXone) 1 grams Route: IV; Rate: per protocol; Site: left oh antecubital; 10:50 Drug: SOLU-Medrol (methylPrednisoLONE) 125 mg Route: IVP; Site: left antecubital; oh 10:50 Drug: Xopenex (levalbuterol) 1.25 mg Route: Inhalation; oh 10:50 Drug: AtroVENT (ipratropium) Aerosol 0.5 mg Route: Inhalation; oh 10:50 Drug: fentaNYL (PF) 25 mcg Route: IVP; Site: left antecubital; oh 10:50 Drug: Zofran (Ondansetron) 4 mg Route: IVP; Site: right antecubital; oh 12:00 Drug: Pepcid (famotidine) 40 mg Route: PO; oh 12:20 Drug: Magnesium Sulfate 1 grams Route: IVPB; Infused Over: 1 hrs; Site: left oh antecubital; 12:20 Drug: Kayexalate (polystyrene) 30 grams Route: PO; oh 12:48 Drug: fentaNYL (PF) 25 mcg Route: IVP; Site: left antecubital; oh 13:50 Drug: REGEN-COV Dose Pack 120 mg/mL-120 mg/mL (EUA) 1 vials Route: IV; Rate: per oh protocol; Site: left antecubital; 20:03 Drug: fentaNYL (PF) 25 mcg Route: IVP; Site: left forearm; ms4 20:03 Drug: Zofran (Ondansetron) 4 mg Route: IVP; Site: left forearm; ms4 Outcome: 10:53 Decision to Hospitalize by Provider. [facility] 22:19 Patient left the ED. ms4 Signatures: Dispatcher [employer] EDMS Alessio Parry MD MD cha Williams, Irene, Will Bonilla RN em1 Pretty Fletcher RN RN ms4 Dayana Johnson RN RN nd Corrections: (The following items were deleted from the chart) 09:48 09:39 CORONAVIRUS+MR.LAB.BRZ drawn and sent. oh EDMS
[2021-01-03] MEDS ORDERED: METHYLPREDNISOLONE 125 MG INJ ONE (11:10)
[2021-01-03] MEDS ORDERED: FENTANYL CITR 100 MCG/2 ML ONE ×2 (11:11→20:16)
[2021-01-03] MEDS ORDERED: IPRATROPIUM BROM 0.5MG/2.5ML ONE (11:12)
[2021-01-03] MEDS ORDERED: LEVALBUTEROL 1.25 MG/3 ML NEB ONE (11:12)
[2021-01-03] MEDS ORDERED: ONDANSETRON 4 MG/2 ML VIAL ONE ×2 (11:12→20:17)
[2021-01-03 11:41] LABS: Ferritin 490.4 ng/mL (8-388)
[2021-01-03 11:50] LABS: C-Reactive Protein < 2.90 mg/L (<3.00)
[2021-01-03] MEDS ORDERED: FAMOTIDINE 20 MG TAB ONE (12:49)
[2021-01-03] MEDS ORDERED: SOD POLYSTYREN SUL 15 GM/60 ML UCUP ONE (12:50)
[2021-01-03] MEDS ORDERED: MAGNESIUM SULFATE 1 gm IVPB 1 GM/100 ML BAG IV ONE (12:50)
[2021-01-03] MEDS ORDERED: CASIRIVIMAB/IMDEVIMAB 10 ML VIAL ONE (12:51)
[2021-01-03] MEDS ORDERED: NA CHLORIDE 0.9% 250 ML ONE (13:33)
--- NOTE | 2021-01-03 15:48 | CON ---
Date of Consultation: 01/03/2021 Reason For Consultation: Elevated BUN and creatinine, fluid management. History Of Present Illness: This is a pleasant a 65-year-old female, well known to me from dialysis with significant past medical history of CAD status post CABG, hypertension, secondary hyperparathyro idism, diabetes complicated with neuropathy and nephropathy, COPD, edema, end-stage renal disease, on hemodialysis, chronic lymphedema, the patient came to the hospital. Yesterday on dialysis, the irene ent continued to have chest pain even on low blood flow, did not response to any nitroglycerin. The patient denied any nausea or vomiting. The patient after 1 hour of treatment sent to the hospital. The patient came to the hospital the today complaining from chest pain, shortness of breath. Primary workup showed COVID positive. The patient's evaluation show over volume. For that reason, we have been consulted. Past Medical History: Includes; 1.Coronary artery disease status post CABG, complicated with congestive heart failure, ejection frac tion as of November is 30%. 2.End-stage renal disease. 3.Secondary hyperparathyroidism. 4.Diabetes complicated with neuropathy and nephropathy. 5.COPD. 6.Chronic leg edema, wound, chronic. Past Surgical History: Includes CABG, cholecystectomy, PermCath placement, rectal surgery. Allergies: TO VANCOMYCIN, TRAMADOL, TRAZODONE, NITROGLYCERIN, AND MORPHINE. Family History: Positive for hypertension and diabetes. Social History: Denied smoking, denied drinking, denied drugs abuse. Review of Systems: Neuro: Has neuropathy. Musculoskeletal: Has leg pain. Review of system as above. Physical Examination: Vital Signs: When I saw the patient; blood pressure 185/60, pulse of 88. Chest: Crackles bilateral. Heart: S1, S2. Systolic murmur. Abdomen: Soft, nontender. Extremity: Edema with a compression wrap bilateral. Home Medications: Include Renvela, isosorbide, breathing treatment, gabapentin, Lasix, codeine, chol estyramine, and Plavix. Laboratory Data: WBC 6.6, H and H 11.1/33.5. Sodium 134, potassium 5.9, bicarb 28, BUN 47, creatini ne 3.7, calcium 8.7, magnesium 1.7. Assessment And Plan: 1.End-stage renal disease with over volume and hyperkalemia. I am going to go ahead and arrange for dialysis today. We will dialyze the patient on low-potassium bath and we will follow up the patient . 2.Hypertension, not controlled. We will follow up blood pressure after dialysis. We will utilize t he blood pressure for more ultrafiltration. 3.Hyperkalemia. The patient is going to be dialyzed on low-potassium bath. 4.Over volume. The patient is going to be challenged on the dialysis. 5.COVID pneumonia. We will follow up with primary. 6.Hyponatremia, going to be corrected with dialysis, secondary to dilutional. 7.Congestive heart failure with exacerbation. We will follow up after dialysis. 8.Respiratory failure, multifactorial, secondary to over volume/COVID pneumonia. We will challenge the patient with ultrafiltration. We will follow up. Time spent examining the patient, [id number], placing orders, discussing the case with the patient, reviewing data radiology and lab, discussing the case with our subspecialty including Cardiology and hospitalist 65 minutes. GAMA Voice ID: [id number] Report ID: [id number]
[2021-01-03] MEDS ORDERED: MELATONIN 5 MG TABLET PO PRN (21:53)
[2021-01-03] MEDS ORDERED: BENZONATATE 100 MG CAP PO PRN (21:53)
[2021-01-03] MEDS ORDERED: HYDRALAZINE HCL 20 MG/ML VIAL IV PRN (21:53)
[2021-01-03] MEDS ORDERED: ONDANSETRON 4 MG/2 ML VIAL IV PRN (21:53)
[2021-01-03] MEDS ORDERED: ACETAMINOPHEN 500 MG TAB PO PRN (21:53)
[2021-01-03] MEDS: INSULIN -REGULAR HUMAN 50 UNIT/0.5 ML ML SQ SCH (21:53)
[2021-01-03 22:56] VITALS: BMI 26.2
[2021-01-03] MEDS ORDERED: GABAPENTIN 100 MG CAP PO PRN (23:14)
[2021-01-03] MEDS ORDERED: HYDROCODONE/APAP 7.5/325 MG TAB PO PRN (23:14)
--- NOTE | 2021-01-03 23:36 | P.HP ---
Certification for Inpatient Patient admitted to: Observation With expected LOS: <2 Midnights Patient will require the following post-hospital care: None Practitioner: I am a practitioner with admitting privileges, knowledge of patient current condition, hospital course, and medical plan of care. Services: Services provided to patient in accordance with Admission requirements found in Title 42 Section 412.3 of the Code of Federal Regulations Patient History Date of Service: 01/03/21 Reason for admission: missed dialysis, covid+ History of Present Illness: Ms. Priest is a 65 yo F with ESRD on HD MWF, CAD s/p CAB, HTN, DM, COPD here today for chest pain and SOB, found to be covid+. Patient reports two days of flu like symptoms. Her sats are stable on room air. She says that she missed one session of dialysis. Nephrology was consulted for hyperkalemia and volume overload, and patient completed a session of dialysis this evening. Ferritin 490.4. Allergies morphine Allergy (Severe, Verified 10/11/20 04:32) Anaphylaxis vancomycin Allergy (Intermediate, Verified 10/11/20 04:32) Shortness of breath basil Allergy (Verified 10/11/20 04:32) Nausea/Vomiting tramadol Allergy (Verified 10/11/20 04:32) Nausea/Vomiting trazodone Allergy (Verified 10/11/20 04:32) Nausea/Vomiting nitroglycerin Adverse Reaction (Mild, Verified 10/11/20 04:32) Nausea/Vomiting Home Medications: Aspirin 81 mg PO DAILY 06/13/20 Clopidogrel Bisulfate [Plavix*] 75 mg PO DAILY 06/13/20 Fluticasone [Flovent Hfa 110*] 2 puff IN DAILY 06/13/20 Cholestyramine (with Sugar) [Cholestyramine Packet] 1 packet PO DAILY PRN 06/14/20 Furosemide [Lasix*] 40 mg PO BID 06/14/20 Gabapentin [Neurontin*] 100 mg PO BID 06/14/20 Lactobacillus Acidophilus [Acidophilus] 1 each PO TID #90 capsule 07/19/20 Lipase/Protease/Amylase [Heather Turpin 12,000 Units Capsule] 3 cap PO TIDWM #270 cap 07/19/20 Medihoney [Medihoney Woundcare Gel*] 1 appl TOP TuThSa@0900 #1 tube 07/19/20 Ipratropium Neb [Atrovent*] 0.5 mg NEB [id number] #60 amp 10/12/20 Isosorbide Dinitrate 30 mg PO DAILY #30 tablet 10/12/20 Codeine/APAP [Tylenol #3*] 1 tab PO Q6H PRN 10 Days #30 tab 12/06/20 Dicyclomine HCl 1 tab PO Q6H PRN 12/06/20 Vit/Fe Fumarate/FA [ 1 Plus 1 Tablet] 1 tab PO DAILY 12/06/20 Sevelamer Carbonate [Renvela*] 2 tab PO TIDWM 12/06/20 Cefpodoxime Proxetil 100 mg PO Q48H #3 tablet 12/22/20 Heparin [Heparin 1,000 units/mL *] 6,000 unit IV EVERY HD PRN vial 12/22/20 lisinopriL [Prinivil*] 20 mg PO DAILY 30 Days #30 tab 12/27/20 - Past Medical/Surgical History Diabetic: Yes -: COPD -: Hypertension -: CAD, CABG x4 vessels (August 2017) -: Diabetes mellitus type 2, insulin-dependent -: Chronic combined systolic/diastolic CHF -: Uterine cancer status post hysterectomy -: Chronic renal disease, stage IV -: TB as a child - Negative 2017 -: Hyperlipidemia -: Iron deficiency anemia -: WEST -: ESRD on HD -: Rectal surgery -: Hysterectomy -: Cholecystectomy -: Gastric surgery -: Appendectomy -: CABG x4 vessel -: RLE Femoral popliteal bypass -: Left great toe amputation Psychosocial/ Personal History: The patient is a . Her son lives with her. She has 3 children. - Family History Brother -: Heart disease, Hypertension, Cancer Notes: Father -: Heart disease, Lung disease, Cancer Notes: - Prostate surgery - Hemorrhage Mother -: GI disease Notes: Sister -: Heart disease Notes: - Respiratory failure - Social History Smoking Status: Current some day smoker Alcohol use: No CD- Drugs: No Caffeine use: Yes Place of Residence: Home Review of Systems 10-point ROS is otherwise unremarkable General: Fever, Chills, Sweats, Malaise Respiratory: Cough, Shortness of Breath Cardiovascular: Chest Pain Physical Examination - Vital Signs Temperature: 98.3 F Blood Pressure: 144/59 Pulse: 66 Respirations: 19 - Physical Exam General: Alert, In no apparent distress HEENT: Atraumatic, PERRLA, Mucous membr. moist/pink, EOMI, Sclerae nonicteric Neck: Supple, 2+ carotid pulse no bruit, No LAD, Without JVD or thyroid abnormality Respiratory: Diminished, Crackles/rales Cardiovascular: Regular rate/rhythm, Normal S1 S2 Gastrointestinal: Normal bowel sounds, No tenderness Musculoskeletal: No tenderness Integumentary: No rashes Neurological: Normal speech, Normal strength at 5/5 x4 extr, Normal tone, Normal affect Lymphatics: No axilla or inguinal lymphadenopathy - Studies Laboratory Data (last 24 hrs) 01/03/21 09:24: PT 13.3 H, INR 1.15 01/03/21 09:24: WBC 4.90, Hgb 10.6 L, Hct 31.9 L, Plt Count 198 01/03/21 09:24: Sodium 131 L, Potassium 5.5 H, BUN 35 H, Creatinine 3.35 H, Glucose 82, Magnesium 1.7 L, Total Bilirubin 0.3, AST 23, ALT 21, Alkaline Phosphatase 134 H, Lipase 547 H Microbiology Data (last 24 hrs): 01/03/21 08:32 Nasopharnyx Influenza Type A Antigen Screen - Final 01/03/21 08:32 Nasopharnyx Influenza Type B Antigen Screen - Final Assessment and Plan - Problems (Diagnosis) (1) COVID Current Visit: Yes Status: Acute (2) Chronic diastolic heart failure Current Visit: No Status: Chronic (3) ESRD (end stage renal disease) Current Visit: No Status: Chronic (4) CAD (coronary artery disease) Onset Date: 10/03/17 Current Visit: No Status: Chronic Qualifiers: Coronary Disease-Associated Artery/Lesion type: bypass graft [place] vs. transplanted heart: [place] heart Associated angina: unspecified whether angina present Qualified Code(s): I25.810 - Atherosclerosis of coronary artery bypass graft(s) without angina pectoris (5) COPD (chronic obstructive pulmonary disease) Onset Date: 02/04/17 Current Visit: No Status: Chronic Qualifiers: COPD type: unspecified COPD Qualified Code(s): J44.9 - Chronic obstructive pulmonary disease, unspecified (6) Diabetes mellitus Onset Date: 10/03/17 Current Visit: No Status: Chronic Qualifiers: Diabetes mellitus type: type 2 Diabetes mellitus long term care social worker insulin use: unspecified long term care social worker insulin use status Diabetes mellitus complication status: with kidney complications Diabetes mellitus complication detail: with chronic kidney disease Chronic kidney disease stage: on chronic dialysis Qualified Code(s): E11.22 - Type 2 diabetes mellitus with diabetic chronic kidney disease; N18.6 - End stage renal disease; Z99.2 - Dependence on renal dialysis (7) Hyperlipidemia Onset Date: 10/03/17 Current Visit: No Status: Chronic Qualifiers: (8) Hypertension Current Visit: No Status: Chronic Qualifiers: - Plan nephrology consulted, completed dialysis session this evening reconcile and continue home medications continue covid supplements and antitussives, monitor O2 saturations DVT ppx Discharge Plan: Home Plan to discharge in: 24 Hours - Advance Directives Does patient have a Living Will: Yes Does patient have a Durable POA for Healthcare: Yes - Code Status/Comfort Care Code Status Assessed: Yes (full code ) Critical Care: No Time Spent Managing Pts Care (In Minutes): 70
[2021-01-03] MEDS: HEPARIN 5000 UNIT/ML 1 ML VIAL SQ SCH (23:39)
[2021-01-03] MEDS: ASCORBIC ACID 500 MG TABLET PO SCH (23:40)
[2021-01-04 01:05] LABS: Urine Appearance TURBID (Clear); Urine Bilirubin NEGATIVE (Negative); Urine Blood 2+ (Negative); Urine Color YELLOW (Yellow); Urine Glucose NEGATIVE (Negative); Urine Protein 3+ (Negative); Urine Urobilinogen 0.2 mg/dL (0.2-1.0); Urine pH 5.5 (5.0-7.0)
[2021-01-04 01:20] LABS: Urine Microscopic Reflex ORDER UMIC
[2021-01-04 02:57] LABS: Urine Bacteria <20 /HPF (<20); Urine RBC <5 /HPF (NONE SEEN)
[2021-01-04 04:02] LABS: Absolute Lymphocytes (CBC) 1.2 K/uL (0.7-4.9); Basophils % 0.3 % (0-1.3); Hematocrit 31.7 % (36.0-45.0); Lymphocytes % 19.3 % (15.3-44.8); MPV 6.8 fL (7.6-11.3)
[2021-01-04 04:35] LABS: ALT/SGPT 19 U/L (12-78); AST/SGOT 22 U/L (15-37); Albumin 2.5 g/dL (3.4-5.0); Alkaline Phosphatase 127 U/L (45-117); BUN Blood Urea Nitrogen 23 mg/dL (7-18); Bicarbonate 27 mmol/L (21-32); Bilirubin Total 0.3 mg/dL (0.2-1.0); Ferritin 652.3 ng/mL (8-388); Glucose Level 144 mg/dL (74-106); HDL Cholesterol 56 mg/dL (40-60); LDL Cholesterol, Calculated 23 (<130); Magnesium 1.9 mg/dL (1.8-2.4); Potassium 4.8 mmol/L (3.5-5.1); Protein, Total 6.6 g/dL (6.4-8.2); Sodium Level 133 mmol/L (136-145)
[2021-01-04 04:36] LABS: C-Reactive Protein < 2.90 mg/L (<3.00)
[2021-01-04] MEDS: INSULIN -REGULAR HUMAN 50 UNIT/0.5 ML ML SQ SCH ×2 (07:30→11:30)
[2021-01-04] MEDS: ASCORBIC ACID 500 MG TABLET PO SCH ×2 (08:33→12:10)
[2021-01-04] MEDS: HEPARIN 5000 UNIT/ML 1 ML VIAL SQ SCH (08:33)
[2021-01-04] MEDS ORDERED: ASPIRIN EC 81 MG TAB PO SCH (09:00)
[2021-01-04] MEDS ORDERED: INFLUENZA VACCINE (for 6+ mo) 0.5 ML DOSE IMVAC ONE (09:00)
[2021-01-04] MEDS ORDERED: VITAMIN D 1000 UNIT TAB PO SCH (09:00)
[2021-01-04] MEDS ORDERED: THIAMINE HCL 100 MG TABLET PO SCH (09:00)
[2021-01-04] MEDS ORDERED: PNEUMOCOCCAL VACCINE 0.5 ML IMVAC ONE (09:00)
[2021-01-04] MEDS ORDERED: ZINC SULFATE 220 MG CAP PO SCH (09:00)
[2021-01-04 09:34] VITALS: O2SAT 98
[2021-01-04] MEDS ORDERED: FUROSEMIDE 40 MG/4 ML VIAL IV ONE (11:24)
[2021-01-04 12:05] VITALS: BP 145/81; TEMP 97
--- NOTE | 2021-01-04 12:59 | P.PN ---
Subjective Date of Service: 01/04/21 Chief Complaint: missed dialysis, covid+ Patient feeling better no shortness of breath no chest pain Review of Systems General: Unremarkable ENT: Unremarkable Respiratory: Cough Cardiovascular: Unremarkable Gastrointestinal: Unremarkable Musculoskeletal: Neck Pain, Back Pain Neurological: Weakness Physical Examination - Vital Signs Temperature: 97 F Blood Pressure: 145/81 Pulse: 67 Respirations: 18 Pulse Ox (%): 94 - Physical Exam General: Alert, Oriented x3 HEENT: Atraumatic Neck: Supple Respiratory: Crackles/rales Cardiovascular: Normal S1 S2, Edema, Systolic murmur Gastrointestinal: Normal bowel sounds, No tenderness Musculoskeletal: Other (Edema compression dressing both lower leg) Neurological: Normal gait, Cranial nerves 3-12 intact Lymphatics: Other (Lymphedema bilateral) - Studies Hemoglobin 10.7 BUN 23 creatinine 2.6 bicarb 27 sodium 133 potassium 4.9 Microbiology Data (last 24 hrs): 01/03/21 08:32 Nasopharnyx Influenza Type A Antigen Screen - Final 01/03/21 08:32 Nasopharnyx Influenza Type B Antigen Screen - Final Assessment & Plan Physician Review: Patient Assessed, Agree with Above Assessment and Plan Physician Review Additional Text: Medication list Tylenol Hydrocodone Vitamin C Cholecalciferol Aspirin Gabapentin hydralazine Zofran Thiamine Zinc sulfate Assessment And Plan: 1. End-stage renal disease with over volume and hyperkalemia. Status post dialysis to recover normal volume currently I am going to go ahead and arrange for dialysis today as outpatient spoke with Alyssa chair available at 4 PM. We will dialyze the patient on low-potassium bath and we will follow up the patient. 2. Hypertension, controlled. We will follow up blood pressure after dialysis. We will utilize the blood pressure for more ultrafiltration. 3. Hyperkalemia. Resolved status post dialysis. 4. Over volume. Resolved back to baseline status post dialysis 5. COVID pneumonia. We will follow up with primary. 6. Hyponatremia, sodium is trending up status post dialysis 7. Congestive heart failure with exacerbation. Clinically normal volume will follow up will discuss with cardiology for possible need for cardiac cath as outpatient 8. Respiratory failure, multifactorial, secondary to over volume/COVID pneumonia. We will challenge the patient with ultrafiltration. We will follow up. Time spent examining the patient, [id number], placing orders, discussing the case with the patient, reviewing data radiology and lab, discussing the case with our subspecialty including Cardiology and hospitalist 35 minutes.
--- NOTE | 2021-01-04 13:49 | P.DS ---
Admission Date: 01/03/21 Discharge Date: 01/04/21 Disposition: DC HOME/HOME HEALTH CARE Discharge Condition: FAIR Reason for Admission: missed dialysis, covid+ Consultations: Nephrology-Dr. Fernando - Problems (1) Missed dialysis Current Visit: Yes Status: Acute (2) COVID Current Visit: Yes Status: Acute (3) Anasarca Current Visit: No Status: Acute (4) ESRD (end stage renal disease) on dialysis Onset Date: ~04/26/20 Current Visit: No Status: Chronic (5) Chronic venous hypertension with ulcer and inflammation involving right side Current Visit: No Status: Ruled-out Brief History of Present Illness: 65 yo woman with ESRD on HD MWF, CAD s/p CAB, HTN, DM, COPD presented with chest pain and SOB. Patient has been loaded positive for a few months. She reported two days of flu like symptoms. Her sats were stable on room air. She stated she missed one session of dialysis. Nephrology was consulted for hyperkalemia and volume overload. Patient completed a session of hemodialysis on the evening of admission. Hospital Course: Patient placed under observation on the medical floor. She was treated for anasarca with IV Lasix. Patient also had hemodialysis. She has been stable on room air. Patient seen by nephrology. She is deemed stable for discharge. She will continue hemodialysis per nephrology. Vital Signs/Physical Exam: Temp Pulse Resp BP Pulse Ox 97 F 67 18 145/81 H 94 01/04/21 12:59 01/04/21 12:59 01/04/21 12:59 01/04/21 12:59 01/04/21 12:59 General: Alert, In no apparent distress, Oriented x3 HEENT: Mucous membr. moist/pink Respiratory: Clear to auscultation bilaterally, Diminished Cardiovascular: Regular rate/rhythm, Normal S1 S2, Edema (Bilateral legs, facial edema.) Gastrointestinal: Soft and benign, Non-distended, No tenderness Musculoskeletal: Swelling (Bilateral lower extremities) Integumentary: Other (Bilateral venous stasis dermatitis of lower extremities.) Neurological: Normal strength at 5/5 x4 extr Laboratory Data at Discharge: WBC 6.10 K/uL (4.3-10.9) D 01/04/21 03:05 Hgb 10.7 g/dL (12.0-15.0) L 01/04/21 03:05 Hct 31.7 % (36.0-45.0) L 01/04/21 03:05 Plt Count 189 K/uL (152-406) 01/04/21 03:05 PT 13.3 SECONDS (9.5-12.5) H 01/03/21 09:24 INR 1.15 01/03/21 09:24 Sodium 133 mmol/L (136-145) L 01/04/21 03:05 Potassium 4.8 mmol/L (3.5-5.1) 01/04/21 03:05 BUN 23 mg/dL (7-18) H 01/04/21 03:05 Creatinine 2.60 mg/dL (0.55-1.3) H 01/04/21 03:05 Glucose 144 mg/dL (74-106) H 01/04/21 03:05 Phosphorus 4.0 mg/dL (2.5-4.9) 01/04/21 03:05 Magnesium 1.9 mg/dL (1.8-2.4) 01/04/21 03:05 Total Bilirubin 0.3 mg/dL (0.2-1.0) 01/04/21 03:05 AST 22 U/L (15-37) 01/04/21 03:05 ALT 19 U/L (12-78) 01/04/21 03:05 Alkaline Phosphatase 127 U/L (45-117) H 01/04/21 03:05 Triglycerides 111 mg/dL (<150) 01/04/21 03:05 Cholesterol 101 mg/dL (<200) 01/04/21 03:05 HDL Cholesterol 56 mg/dL (40-60) 01/04/21 03:05 Cholesterol/HDL Ratio 1.80 01/04/21 03:05 Lipase 547 U/L (73-393) H 01/03/21 09:24 Home Medications: Aspirin 81 mg PO DAILY 06/13/20 Clopidogrel Bisulfate [Plavix*] 75 mg PO DAILY 06/13/20 Fluticasone [Flovent Hfa 110*] 2 puff IN DAILY 06/13/20 Furosemide [Lasix*] 40 mg PO BID 06/14/20 Gabapentin [Neurontin*] 100 mg PO BID 06/14/20 Ipratropium Neb [Atrovent*] 0.5 mg NEB [id number] #60 amp 10/12/20 Isosorbide Dinitrate 30 mg PO DAILY #30 tablet 10/12/20 Dicyclomine HCl 1 tab PO Q6H PRN 12/06/20 Vit/Fe Fumarate/FA [ 1 Plus 1 Tablet] 1 tab PO DAILY 12/06/20 Sevelamer Carbonate [Renvela*] 2 tab PO TIDWM 12/06/20 Cefpodoxime Proxetil 100 mg PO Q48H #3 tablet 12/22/20 Cholecalciferol (Vitamin D3) [Vitamin D3] 4,000 unit PO DAILY #60 capsule 01/04/21 New Medications: Cholecalciferol (Vitamin D3) [Vitamin D3] 4,000 unit PO DAILY #60 capsule Diet: Renal Activity: Ad shira Followup: Unknown,U [Primary Care Provider] - Sharri Fernando MD [ACTIVE - CAN ADMIT] - 1-2 Weeks
[2021-01-06 20:54] LABS: HBsAG Nonreactive (Nonreactive)
== END 2021-01-04 14:35 | disposition home health service (06) ==
LOC: ER 08:05 → ERHOLD 19:32 → 4TH 22:32
PROVIDERS: ADMIT Internal Medicine; ATTEND Internal Medicine
DX: U07.1 COVID-19 (principal); J12.82 Pneumonia due to coronavirus disease 2019; I13.2 Hypertensive heart and chronic kidney disease with heart failure and with stage 5 chronic kidney disease, or end stage renal disease; I50.32 Chronic diastolic (congestive) heart failure; E11.22 Type 2 diabetes mellitus with diabetic chronic kidney disease; N18.6 End stage renal disease; Z99.2 Dependence on renal dialysis; Z91.15 Patient's noncompliance with renal dialysis; J96.90 Respiratory failure, unspecified, unspecified whether with hypoxia or hypercapnia; E87.5 Hyperkalemia; E11.65 Type 2 diabetes mellitus with hyperglycemia; E87.1 Hypo-osmolality and hyponatremia; E83.42 Hypomagnesemia; E11.21 Type 2 diabetes mellitus with diabetic nephropathy; E11.40 Type 2 diabetes mellitus with diabetic neuropathy, unspecified; I87.331 Chronic venous hypertension (idiopathic) with ulcer and inflammation of right lower extremity; J44.9 Chronic obstructive pulmonary disease, unspecified; I25.10 Atherosclerotic heart disease of native coronary artery without angina pectoris; G47.33 Obstructive sleep apnea (adult) (pediatric); D50.9 Iron deficiency anemia, unspecified; E78.5 Hyperlipidemia, unspecified; K58.9 Irritable bowel syndrome, unspecified; F17.200 Nicotine dependence, unspecified, uncomplicated; Z95.1 Presence of aortocoronary bypass graft; Z79.82 Long term (current) use of aspirin; Z79.02 Long term (current) use of antithrombotics/antiplatelets; Z88.1 Allergy status to other antibiotic agents; Z88.6 Allergy status to analgesic agent; Z88.8 Allergy status to other drugs, medicaments and biological substances; Z91.018 Allergy to other foods; Z85.42 Personal history of malignant neoplasm of other parts of uterus; Z90.710 Acquired absence of both cervix and uterus; Z90.49 Acquired absence of other specified parts of digestive tract; Z89.412 Acquired absence of left great toe; Z79.4 Long term (current) use of insulin; Z82.49 Family history of ischemic heart disease and other diseases of the circulatory system; Z83.3 Family history of diabetes mellitus; Z80.9 Family history of malignant neoplasm, unspecified; Z83.79 Family history of other diseases of the digestive system
CPT/HCPCS: 93005; 87040 ×2; 85025 ×2; 80048; 36415; 83735 ×2; 84100; 85610; 80061; 82947 ×3; 80076; 83605; 84443; 84484; 84439; 82728 ×2; 83690; 80053; 86704; 84145; 83880; 87340; 86706; 86803; 86140 ×2; 87804 ×2; 71045; 94760 ×2; 99284; U0003; J1940; J1644 ×2; J3010 ×2; J3475; J7050; J2930; J2405 ×2; G0378 ×2; 81003; 81015

== ENCOUNTER 2021-01-07 13:37 | Emergency (ER) | payer OTHER ==
[2021-01-07 14:51] LABS: Absolute Lymphocytes (CBC) 1.9 K/uL (0.7-4.9); Basophils % 1.1 % (0-1.3); Hematocrit 33.3 % (36.0-45.0); MPV 6.4 fL (7.6-11.3); RBC Red Blood Cell Count 3.88 M/uL (3.86-4.86)
[2021-01-07] MEDS ORDERED: HYDROCODONE/APAP 10/325 TAB ONE (14:59)
[2021-01-07 15:01] LABS: Potassium 4.5 mmol/L (3.5-5.1)
--- NOTE | 2021-01-07 15:36 | RAD REPORT ---
EXAM DESCRIPTION: RAD - Chest Single View - 01/07/2021 3:12 pm CLINICAL HISTORY: COUGH COMPARISON: Portable January 03 TECHNIQUE: AP portable chest image was obtained 01/07/2021 3:12 pm . FINDINGS: No new lung parenchymal process. Dialysis catheter remains in place. Right base pleural ef fusion with atelectasis has not changed. Heart and vasculature are normal. No pneumothorax. No acute bony abnormality seen. No acute aortic findings suspected. IMPRESSION: Right base pleural effusion similar to comparison.
--- NOTE | 2021-01-07 16:12 | EDPHYS ---
Physician Documentation [facility] Name: Christy Priest Age: 65 yrs Sex: Female : 1955 Arrival Date: 01/07/2021 Time: 13:44 Bed 6 Private MD: ED Physician Jurgen Nettles HPI: 01/07 14:49 This 65 yrs old Female presents to ER via EMS with complaints of Generalized rn weakness and cough. 14:49 The patient or guardian reports cough, described as mild, with no sputum. Onset: The rn symptoms/episode began/occurred 5 day(s) ago. Severity of symptoms: At their worst the symptoms were moderate, in the emergency department the symptoms are unchanged. Modifying factors: The symptoms are alleviated by nothing, the symptoms are aggravated by nothing. Associated signs and symptoms: Pertinent negatives: chest pain, fever. The patient has not experienced similar symptoms in the past. The patient has been recently seen by a physician: The patient has been recently been admitted at [facility]. Patient reports diagnosed with Covid 5 days ago, admitted to the hospital for 1 night, given Regeneron infusion, reports does not feel better or worse. Did not know what to expect so came in for reevaluation. Is already on oxygen at home chronically at 3 L and currently 100% on 3 L O2.. Historical: - Social history:: Smoking status: Patient/guardian denies using tobacco. - Family history:: not pertinent. - Hospitalizations: : The patient was recently seen at [facility]. ROS: 14:49 Constitutional: Negative for fever, chills, and weight loss, Eyes: Negative for injury, rn pain, redness, and discharge, Neck: Negative for injury, pain, and swelling, Cardiovascular: Negative for chest pain, palpitations, and edema, Respiratory: Positive for cough Abdomen/GI: Negative for abdominal pain, nausea, vomiting, diarrhea, and constipation, Back: Negative for injury and pain, MS/Extremity: Negative for injury and deformity, Skin: Negative for injury, rash, and discoloration, Neuro: Negative for headache, weakness, numbness, tingling, and seizure. Exam: 14:49 Constitutional: This is a well developed, well nourished patient who is awake, alert, rn and in no acute distress. Head/Face: Normocephalic, atraumatic. Eyes: Periorbital areas with no swelling, redness, or edema. ENT: No stridor Cardiovascular: Regular rate and rhythm. No pulse deficits. Respiratory: No increased work of breathing, no retractions or nasal flaring. Abdomen/GI: Soft, non-tender Skin: Warm, dry MS/ Extremity: Pulses equal, no cyanosis. Neuro: Awake and alert, GCS 15 15:38 ECG was reviewed by the Attending Physician. rn Vital Signs: 13:44 BP 120 / 90; Pulse 69; Resp 24; Temp 98.0; Pulse Ox 100% on 3 lpm NC; Weight 73.94 kg; ch5 Height 5 ft. 8 in. (172.72 cm); Pain 10/10; 13:59 BP 120 / 60; Pulse 72; Resp 20; Temp 98.0; Pulse Ox 100% on 3 lpm NC; Pain 10/10; ch5 14:53 BP 147 / 72; Pulse 77; Resp 20; Pulse Ox 100% on 3 lpm NC; tw2 15:19 BP 140 / 79; Pulse 77; Resp 18; Pulse Ox 95% ; ch5 15:34 BP 140 / 79; Pulse 79; Resp 20; Pulse Ox 98% on 3 lpm NC; ch5 16:24 BP 152 / 78; Pulse 76; Resp 19; Pulse Ox 100% on 3 lpm NC; tw2 17:35 BP 152 / 83; Pulse 75; Resp 17; Pulse Ox 100% on 3 lpm NC; tw2 13:44 Body Mass Index 24.78 (73.94 kg, 172.72 cm) ch5 MDM: 13:50 Patient medically screened. rn 16:10 Differential Diagnosis: Bronchitis Upper Respiratory Infection Viral Syndrome rn Pneumonia. Data reviewed: vital signs, nurses notes, lab test result(s), EKG, radiologic studies, plain films, and as a result, I will discharge patient. Data interpreted: pyrotechnic mixer: rate is 79 beats/min, rhythm is normal sinus rhythm, regular, with no ectopy, Interpretation: normal rate, normal rhythm, Pulse oximetry: on 3L(s) per nasal canula, is 100 %. Interpretation: normal. Test interpretation: by ED physician or midlevel provider: ECG, plain radiologic studies, X-ray without acute pneumonia. No gross changes from previous hospitalization a few days ago.. Counseling: I had a detailed discussion with the patient and/or guardian regarding: the historical points, exam findings, and any diagnostic results supporting the discharge/admit diagnosis, lab results, radiology results, the need for outpatient follow up, the need to transfer to another facility. Response to treatment: the patient's symptoms have mildly improved after treatment, and as a result, I will discharge patient. Special discussion: I discussed with the patient/guardian in detail that at this point there is no indication for admission to the hospital. It is understood, however, that if the symptoms persist or worsen the patient needs to return immediately for re-evaluation. ED course: No gross changes and oxygen requirement or chest x-ray from recent Covid admission. Will DC home. Already received Regeneron during admission. Return precautions given and understood.. 01/07 14:02 Order name: CBC with Diff; Complete Time: 15:23 rn 01/07 14:02 Order name: Basic Metabolic Panel; Complete Time: 15:23 rn 01/07 14:02 Order name: EKG; Complete Time: 14:02 rn 01/07 14:02 Order name: XRAY Chest (1 view); Complete Time: 15:38 rn 01/07 14:02 Order name: IV Start; Complete Time: 14:52 rn 01/07 14:02 Order name: EKG - Nurse/Tech; Complete Time: 14:52 rn 01/07 14:32 Order name: Labs - recollect needed: recollect all the blood / clotted and hemolyzed; eb Complete Time: 15:17 EC:38 Rate is 72 beats/min. Rhythm is regular. Right axis deviation noted. QRS is negative in rn leads I, aVF. MO interval is normal. QRS interval is normal. QT interval is normal. No Q waves. T waves are Normal. No ST changes noted. Clinical impression: NSR w/ Non-specific ST/T Changes. Interpreted by me. Reviewed by me. Administered Medications: 14:24 Not Given (Pt recieved dose on ): REGEN-COV Dose Pack 120 mg/mL-120 mg/mL (EUA) ss 600 mg IV at calculated rate Per protocol 14:35 Drug: Sawyer (HYDROcodone-acetaminophen) 10 mg-325 mg 1 tabs {Note: RASS -0.} Route: PO; tw2 15:19 Follow up: BP 140 / 79; Pulse 77 bpm; Resp 18 bpm; Pulse Ox 95% ch5 Disposition Summary: 01/07/21 16:12 Discharge Ordered Location: Home rn Problem: new rn Symptoms: have improved rn Condition: Stable rn Diagnosis - SARS-associated coronavirus as the cause of diseases classified elsewhere rn - End stage renal disease rn Followup: rn - With: Private Physician - When: As needed - Reason: Recheck today's complaints, Re-evaluation by your physician Discharge Instructions: - Discharge Summary Sheet rn - COVID-19 rn - 10 Things You Can Do to Manage Your COVID-19 Symptoms at Home - CDC rn - Viral Illness, Adult rn Forms: - Medication Reconciliation Form rn - Thank You Letter rn - Antibiotic procurement intern - Prescription Opioid Use rn Signatures: Dispatcher [employer] EDJurgen No MD MD rn Wise, Tara, RN RN tw2 Rocio Nguyen Christopher, RN RN [id number] Vero Wells RN ss Corrections: (The following items were deleted from the chart) 13:52 13:51 PMHx: kidney disease; ch5 ch5 13:52 13:51 PMHx: Anemia; ch5 ch5 13:52 13:51 PMHx: End stage renal disease; ch5 ch5 13:52 13:51 PMHx: Hypertensive disorder; ch5 ch5 13:52 13:51 PMHx: Congestive heart failure; ch5 ch5 13:52 13:51 PMHx: Irritable bowel syndrome; ch5 ch5 13:52 13:51 PMHx: diabetes mellitus; ch5 ch5
--- NOTE | 2021-01-07 16:12 | ER ---
Nurse's Notes [facility] Name: Christy Priest Age: 65 yrs Sex: Female : 1955 Arrival Date: 01/07/2021 Time: 13:44 Bed 6 Private MD: Diagnosis: SARS-associated coronavirus as the cause of diseases classified elsewhere;End stage renal disease Presentation: 01/07 13:44 Chief complaint: Patient states: Brought in for dizziness and SHOB. Dx with COVID ch5 Friday01/02/21. Wears O2 at 3L NC at home. Coronavirus screen: Vaccine status: Patient reports receiving the 2nd dose of the covid vaccine. Coronavirus screen: Client presents with at least one sign or symptom that may indicate coronavirus-19. Provider contacted for isolation considerations. Client reports previous positive COVID test result. Date of collection: January 02, 2021 results are located within the EHR/EMR. Ebola Screen: No symptoms or risks identified at this time. Initial Sepsis Screen: Does the patient meet any 2 criteria? No. Patient's initial sepsis screen is negative. Does the patient have a suspected source of infection? Yes:. Risk Assessment: Do you want to hurt yourself or someone else?. Onset of symptoms was January 02, 2021. 13:44 Method Of Arrival: EMS: [facility] 13:44 Acuity: DENNY 3 ch5 Triage Assessment: 13:51 General: Appears in no apparent distress. Pain: Complains of pain in back. Respiratory: ch5 Breath sounds are coarse bilaterally. 18:26 General: Behavior is calm. tw2 Historical: - Social history:: Smoking status: Patient/guardian denies using tobacco. - Family history:: not pertinent. - Hospitalizations: : The patient was recently seen at [facility]. Screenin:54 Abuse screen: Denies threats or abuse. Denies injuries from another. Nutritional 5 screening: No deficits noted. Tuberculosis screening: No symptoms or risk factors identified. Fall Risk None identified. Assessment: 13:54 Reassessment: No changes from previously documented assessment. 5 14:53 Reassessment: No changes from previously documented assessment. Patient and/or family tw2 updated on plan of care and expected duration. Pain level reassessed. 16:39 Reassessment: Attempted to call Neisha, per patient request who is reportedly her ss transportation service. Rang once and would go straight to . Unable to leave as VM had not been set up. Also attempted to call daughter and son, however their phones were not in service at this time. PT aware and states that she is unable to think of any other numbers at this time. Will continue to attempt to get ahold of family member for transportation home. 17:28 Reassessment: Spoke with niece Kaci who states that she does not have a car and she ss will attempt to send a facebook message to patient's daughter as her phone is disconnected. Patient notified. 17:35 Reassessment: No changes from previously documented assessment. Patient and/or family tw2 updated on plan of care and expected duration. Pain level reassessed. pending transportation at this time. 17:37 Reassessment: Spoke with niece and daughter who are attempting to arrange for ss transportation back home. 18:26 Reassessment: Patient appears in no apparent distress at this time. No changes from tw2 previously documented assessment. Patient and/or family updated on plan of care and expected duration. Pain level reassessed. Vital Signs: 13:44 BP 120 / 90; Pulse 69; Resp 24; Temp 98.0; Pulse Ox 100% on 3 lpm NC; Weight 73.94 kg; ch5 Height 5 ft. 8 in. (172.72 cm); Pain 10/10; 13:59 BP 120 / 60; Pulse 72; Resp 20; Temp 98.0; Pulse Ox 100% on 3 lpm NC; Pain 10/10; ch5 14:53 BP 147 / 72; Pulse 77; Resp 20; Pulse Ox 100% on 3 lpm NC; tw2 15:19 BP 140 / 79; Pulse 77; Resp 18; Pulse Ox 95% ; ch5 15:34 BP 140 / 79; Pulse 79; Resp 20; Pulse Ox 98% on 3 lpm NC; ch5 16:24 BP 152 / 78; Pulse 76; Resp 19; Pulse Ox 100% on 3 lpm NC; tw2 17:35 BP 152 / 83; Pulse 75; Resp 17; Pulse Ox 100% on 3 lpm NC; tw2 13:44 Body Mass Index 24.78 (73.94 kg, 172.72 cm) [facility] ED Course: 13:44 Patient arrived in ED. ch5 13:50 Jurgen Nettles MD is Attending Physician. rn 13:51 Triage completed. ch5 13:51 Arm band placed on right wrist. ch5 13:54 Bed in low position. Call light in reach. Side rails up X2. ch5 13:55 Hannah Coker, RN is Primary Nurse. tw2 14:00 No provider procedures requiring assistance completed. ch5 15:12 XRAY Chest (1 view) In Process Unspecified. EDMS 16:29 Awaiting transportation, Awaiting: prior to discharge. tw2 18:26 IV discontinued, intact, bleeding controlled, No redness/swelling at site. Pressure tw2 dressing applied. Administered Medications: 14:24 Not Given (Pt recieved dose on ): REGEN-COV Dose Pack 120 mg/mL-120 mg/mL (EUA) ss 600 mg IV at calculated rate Per protocol 14:35 Drug: [place] (HYDROcodone-acetaminophen) 10 mg-325 mg 1 tabs {Note: RASS -0.} Route: PO; tw2 15:19 Follow up: BP 140 / 79; Pulse 77 bpm; Resp 18 bpm; Pulse Ox 95% ch5 Outcome: 16:12 Discharge ordered by MD. rn 18:26 Discharged to home via wheelchair, with family. tw2 18:26 Condition: stable 18:26 Discharge instructions given to patient, family, Instructed on discharge instructions, follow up and referral plans. Demonstrated understanding of instructions, follow-up care. 18:26 Patient left the ED. tw2 Signatures: Dispatcher [employer] EDMA Jurgen Nettles MD MD rn Smirch, Shelby, RN RN ss Wise, Tara, RN RN tw2 Davis Villaseñor RN RN ch5 Corrections: (The following items were deleted from the chart) 13:52 13:51 PMHx: kidney disease; ch5 ch5 13:52 13:51 PMHx: Anemia; ch5 ch5 13:52 13:51 PMHx: End stage renal disease; ch5 ch5 13:52 13:51 PMHx: Hypertensive disorder; ch5 ch5 13:52 13:51 PMHx: Congestive heart failure; ch5 ch5 13:52 13:51 PMHx: Irritable bowel syndrome; ch5 ch5 13:52 13:51 PMHx: diabetes mellitus; ch5 ch5
[2021-01-07 18:31] VITALS: TEMP 98
[2021-01-07 18:38] VITALS: O2SAT 100
[2021-01-07 18:40] VITALS: BP 152/83
--- NOTE | 2021-01-08 07:06 | EKG ---
Test Date: 2021-01-07 Test Time: 14:43:13 Embedded Software Design Engineer: [place] MEASUREMENT RESULTS: Intervals: Rate: 72 SC: 160 QRSD: 98 QT: 438 QTc: 479 [place]: P: 34 SC: 160 QRS: 122 T: 57 INTERPRETIVE STATEMENTS: Normal sinus rhythm Right axis deviation Septal infarct, age undetermined Abnormal ECG Compared to ECG 01/03/2021 09:43:42 Incomplete right bundle-branch block no longer present Myocardial infarct finding still present Electronically Signed On 01-08-21 07:04:36 CDT by Taj Raymond
== END 2021-01-07 18:26 | disposition home or self-care (01) ==
LOC: ER 13:37
DX: U07.1 COVID-19 (principal); N18.6 End stage renal disease
CPT/HCPCS: 36415; 71045; 80048; 85025; 93005; 99284

== ENCOUNTER 2021-02-23 14:29 | Emergency (ER) | payer OTHER ==
--- OUTSIDE RECORDS SUMMARY | 2021-02-23 14:48 | XMS REPORT | Continuity of Care Document ---
:1955 Author Organization [facility] t Address [address] [place] [address] Care Team Providers Name Role Phone TIEN ALMAZAN Primary Care Physician Unavailable LISA MOHAMUD Attending Clinician Unavailable Babatunde PIERRE Attending Clinician Mk PIERRE Attending Clinician BABATUNDE Attending Clinician Unavailable Lisa Mohamud MD Attending Clinician Tracy Underwood MD Attending Clinician Cesia Kearns MD Attending Clinician Neeta PIERRE, Maggy Attending Clinician Belkis PIERRE, Taj Attending Clinician Monica VANEGAS Attending Clinician Unavailable OLAYINKA Attending Clinician Unavailable PRABHJOT DREW Attending Clinician Unavailable LISA VERDUZCO Attending Clinician Unavailable MAGGIE MCCONNELL Attending Clinician Unavailable Mary FIERRO Attending Clinician Unavailable LISA MOHAMUD Admitting Clinician Unavailable Mk PIERRE Admitting Clinician BERTA BANERJEE Admitting Clinician Unavailable LISA VERDUZCO Admitting Clinician Unavailable MAGGIE MCCONNELL Admitting Clinician Unavailable Mary FIERRO Admitting Clinician Unavailable Payers Payer Name Policy Type Policy Number Effective Date Expiration Date Sam sow MEDICAID MOLINA [id number] 2011 00:00:00 [facility] [id number] MEDICAID 00:00:00 Problems Condition Condition Condition Status Onset Resolution [...] Chronic Disease Active [facility] kidney 05-21 [facility] - disease, disease, 00:00: Medica l stage 3 stage 3 00 Center CAD CAD Disease Active Overview: [facility] (coronary (coronary 05-20 S/p CABG- L ukes - artery artery 00:00: PRITCHETT-LAD, Medical disease) disease) 00 SVG-PDA,r Matthew ter amus,OM3 on 05/20/17 Atheroscle Atheroscle Disease Active Overview : [facility] rosis of rosis of 05-19 RLE PVD [facility] - wainwright wainwright 00:00: Medical artery of artery of 00 Cent er extremity extremity with with ulceration ulceration Acute CHF Acute CHF Disease Active [facility] - 00:[facility]: Medical 00 Center COPD COPD Disease Active [facility] (chronic (chronic 05-14 [facility] - obstructiv obstructiv 00:00: Me dical e e 00 Center pulmonary pulmonary disease) disease) Controlled Controlled Disease Active [facility] type 2 type 2 2 [facility] - diabetes diabetes 00:00: Medica l mellitus mellitus 00 Center with with care transition manager care transition manager y y disorder, disorder, with with long-term long-term current current use of use of insulin insulin Smoker Smoker Disease Active [facility] 2-14 [facility] - 00:00: Medical [place] Frequent Frequent Disease Active [facility] PVCs PVCs 05-12 [facility] - 00:00: Medical [place] Chronic Chronic Diagnosis Active [facility] [...] of use of Memoria insulin insulin l [facility] History of History of Problem Active [facility] stroke stroke [facility] 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2 [...] [facility] Out[facility] Clinics Essential Essential Problem Active [facility] (primary) [...] diabetes en t mellitus mellitus Clinic s Allergies, Adverse Reactions, Alerts Allergy Allergy Status Severity Reaction(s) Onset Inactive Treating Comm ents Source Name Type Date Date Clinician BASIL DRUG Active Unknown-Cmnt 2019-03 Univ ers INGREDI ity of 00:00: [place] [facility] VANCOMYC DRUG Active Med N/V 2019-03 Univers IN INGREDI ity of 00:00: [place] [facility] MORPHINE DRUG Active High Anaphylaxis 2019-03 Uni vers INGREDI ity of 00:00: [place] [facility] AMOXICIL DRUG Active Med Diarrhea 2019-03 Univer s KENZIE-POT ity of CLAVULAN 00:00: [place] ATE [facility] NITROGLY DRUG Active High Anaphylaxis 2019-03 Uni vers CERIN IN ity of 5 % 00:00: [place] DEXTROSE [facility] TRAZODON DRUG Active Med N/V 2019-03 Univers E INGREDI ity of 00:00: [place] 00 [facility] Trazodon Drug Active Nausea And [facility] e Allergy Vomiting -12 [facility] - 00:00: [address] TRAZODON Allergy Active High N\\T\\V 2018-0 SLSL E 2-12 00:00: 00 Morphine Propensi Active Anaphylaxis 2018-[address] ty to 04-21 [facility] - adverse 00:00: Medical reaction 00 Center s Nitrogly Propensi Active Nausea And 2018-[address] cerin ty to Vomiting 04-21 ONLY [facility] - adverse 00:00: Medical reaction 00 Center s Vancomyc Propensi Active Nausea And 2018-[address] in ty to Vomiting 04-21 [facility] - Analogue adverse 00:00: Medical s reaction 00 Center s Amoxicil Propensi Active Diarrhea 2018-[address] kenzie-Pot ty to 04-21 [facility] - Clavulan adverse 00:00: Medical ate reaction 00 Center s Basil Propensi Active Nausea Only 2018-[address] ty to 04-21 [facility] - adverse 00:00: Medical reaction 00 Center s AMOXICIL Allergy Active High Diarrhea 2018-0 SLSL KENZIE-POT 04-21 CLAVULAN 00:00: ATE 00 BASIL Allergy Active High Nausea 2017-0 SLSL 04-21 00:00: 00 MORPHINE Allergy Active High Anaphylaxis 2018-0 SL SL 04-21 00:00: 00 NITROGLY Allergy Active High N\\T\\V 2018-0 [facility] CERIN 04-21 00:00: 00 VANCOMYC Allergy Active High N\\T\\V 2018-0 SLSL IN 04-21 ANALOGUE 00:00: S 00 Vancomyc Adverse Active vomiting [facility] in HCl Reaction [facility] Nitrogly Adverse Active vomiting [facility] cerin Reaction [facility] Morphine Adverse Active headache, [facility] Sulfate Reaction breathing Luke [facility] - Memoria l [facility] Clindamy Adverse Active vomiting [facility] t riley HCl Reaction [facility] NO KNOWN Drug Active Univers ALLERGIE Class ity of S [facility] Family History Family Member Diagnosis Comments Start Date Stop Date Source Natural father COPD [facility] Natural father Cancer [facility] Natural father Hypertension [facility] Natural mother No Known Problem [facility] Natural sister Asthma [facility] Natural sister COPD [facility] Social History Social Habit Start Date Stop Date Quantity Comments Source Sex Assigned At [facility] Cigarettes smoked 2019-12-31 2019-12-[address] [facility] - current (pack per 00:00:00 00:00:00 [facility] day) - Reported Cigarette 2019-12-31 2019-12-[address] [facility] - pack-years 00:00:00 00:00:00 [facility] Tobacco use and 2019-12-31 2019-12-[address] Janna kes - exposure 00:00:00 00:00:00 [facility] Alcohol intake 2019-12-31 2019-12-[address] Lay es - 00:00:00 00:00:00 non-drinker of Medical Ce nter alcohol (finding) History of tobacco 2017-05-[address] [facility] - use 00:[facility] [facility] Smoking Status Start Date Stop Date Source Former smoker 2019-12-31 00:00:00 2019-12-31 00:00:[address] [facility] - [facility] Medications Ordered Filled Start Stop Current Ordering Indication Dosage Frequency Signature Comments Components Source Medication Medication Date Date Medication? Clinician (SIG) Name Name mupirocin 2019-03 Yes QD Apply [facility] (BACTROBAN) 0-03 topically Lay es - 2 % 10:49: daily. Medical ointment 00 [place] collagenase 2019-03 Yes QD Apply [facility] t (SANTYL) 0-03 topically [facility] - 250 units/g 10:49: daily. Medi marilin ointment 00 [place] bumetanide 2019-03 Yes 2mg [id number] Take [address] (BUMEX) 2 0-03 [id number] by mouth 3 [facility] - MG tablet [...] 2 % 10:49: daily. Medical ointment 00 [place] collagenase 2019-03 Yes QD Apply [facility] t (SANTYL) 0-03 topically [facility] - 250 units/g 10:49: daily. Medi marilin ointment 00 [place] bumetanide 2019-03 Yes 2mg Q.[id number] Take [address] (BUMEX) 2 0-03 [id number] by mouth 3 [facility] - MG tablet [...] tablet mouth daily for 10 days. levoFLOXaci 2019-03- No 250mg QD Take [address] n 0-02 10-12 tablet [facility] - (LEVAQUIN) 00:00: 23:59 (250 mg Med ical 250 MG 00 :00 total) by Center tablet mouth daily for 10 days. fentaNYL Yes 1{patch Place [address] [facility] (DURAGESIC) 12-17 } patch onto Janna kes - 50 mcg/hr 00:00: the skin Medi marilin patch 00 every Center third day. fentaNYL 2019-0 Yes 1{patch Place [address] [facility] (DURAGESIC) 9- } patch onto Janna kes - 50 mcg/hr 00:00: the skin Medi marilin patch 00 every Center third day. melatonin 2019-0 2020- No 10mg Take 10 mg C [...] 00:00 Medical 48 :00 Center aspirin 81 2019-0 2020- No 81mg QD Take [address] MG EC 12-15 by mouth [facility] - tablet 11:03: 00:00 daily. Medical 18 :00 Center aspirin 81 2020-0 2020- No 81mg QD Take [address] MG EC 12-15 by mouth [facility] - tablet 11:03: 00:00 daily. Medical 18 :00 Center isosorbide 2019-0 2020- No 30mg QD Take [address] mononitrate 12-15 by mouth Lay es - (IMDUR) 30 10:59: 00:00 daily. Medi marilin MG 24 hr 29 :00 Center tablet isosorbide 2020-0 2020- No 30mg QD Take [address] mononitrate 12-15 by mouth Lay es - (IMDUR) 30 10:59: 00:00 daily. Medi marilin MG 24 hr 29 :00 Center tablet acetaminoph 2017-0 Yes 1{tbl} Take [address] en-codeine 6-08 tablet by Miguel A s - (TYLENOL 00:00: mouth Medical #3) 300-30 00 every 6 Center mg per (six) tablet hours as needed. Max Daily Amount: 4 tablets acetaminoph 2018-0 Yes 1{tbl} Take [address] en-codeine 6-08 tablet by Luke s - (TYLENOL 00:00: mouth Medical #3) 300-30 00 every 6 Center mg per (six) tablet hours as needed. Max Daily Amount: 4 tablets gabapentin 2017-0 Yes Take [address] (NEURONTIN) 6-05 mg in AM Luke s - 100 MG 00:00: and Medical capsule 00 afternoon Center and 300 mg at night. gabapentin 2018-0 Yes Take [address] (NEURONTIN) 6-05 mg in AM Luke s - 100 MG 00:00: and Medical capsule 00 afternoon Center and 300 mg at night. ferrous 2017- 2020- No 325mg Q.5D Take [address] sulfate 325 -03 08-17 tablet [facility]ukes - (65 FE) MG 00:00: 00:00 (325 mg Med ical tablet 00 :00 total) by Center mouth 2 (two) times daily. ferrous 2017- 2020- No 325mg Q.5D Take [address] sulfate 325 -03 08-17 tablet [facility] - (65 FE) MG 00:00: 00:00 (325 mg Med ical tablet 00 :00 total) by Center mouth 2 (two) times daily. carvedilol 2018-0 Yes 12.5mg Q.5D Take [...] 00 :00 by mouth Center daily. NIFEdipine 2019- No [...] 00 :00 by mouth Center daily. fluticasone 2018- Yes 1{puff} Q.5D Inhale [address] (FLOVENT 3-04 puff by [facility]ukes - HFA) 110 00:00: mouth via Medi marilin mcg/actuati [address] on inhaler (two) times daily. fluticasone 2018-0 Yes 1{puff} Q.5D Inhale [address] [...] long and Center short acting insulin.. albuterol-i 2019- No 2{puff} Inhale 2 [facility]I [...] EVERYDAY l AT BEDTIME [facility] Isosorbide Isosorbide Yes Franki TAKE [address] [facility] Mononitrate Mononitrate Jas TABLET BY Lukes - ER ER MOUTH Memoria EVERY DAY l [facility] NIFEdipine NIFEdipine Yes Franki TAKE [address] [facility] [address] ER ER Jas TABLET BY Lukes - MOUTH Memoria EVERY DAY l Outpati ent Clinics BuPROPion BuPROPion Yes Franki TAKE [address] HCl HCl Jas TABLET BY [facility]ukes - MOUTH Memoria EVERY DAY l Outpati ent Clinics Acetaminoph Acetaminoph Yes Franki (Schedule [facility] en-Codeine en-Codeine Jas III Drug) Lu - #3 #3 TAKE 1 Memoria TABLET [...] Outpati MORNING ent Clinics HydrALAZINE HydrALAZINE Yes Frakni TAKE [address] [facility] HCl HCl Jas TABLET BY Lukes - MOUTH Memoria THREE l TIMES A Out DAY ent Clinics Vital Signs Vital Name Observation Time Observation Value Comments Source WEIGHT 2019-12-15 00:00:00 78.2 kg HEIGHT 2019-12-15 00:00:00 170.2 cm WEIGHT 2019-12-15 00:00:00 78.2 kg HEIGHT 2019-12-15 00:00:00 170.2 cm Heart rate 2020-01-01 08:41:00 60 /min [facility] Respiratory rate 2020-01-01 08:41:00 18 /min [facility] Oxygen saturation in 2020-01-01 08:41:00 100 /min [facility] Arterial blood by Medical Ce nter Pulse oximetry Systolic blood 2020-01-01 08:32:00 162 mm[Hg] [facility] Diastolic blood 2020-01-01 08:32:00 73 mm[Hg] [facility] Body temperature 2020-01-01 07:41:00 36.56 Deanne [facility] Body weight 2019-12-30 04:28:00 78.2 kg [facility] BMI 2019-12-30 04:28:00 27.00 kg/m2 [facility] Body height 2019-12-25 21:05:00 170.2 cm [facility] Procedures Procedure Date / Time Performed Performing Clinician [facility] e REPORT OF PROCEDURE - 2020-01-05 08:40:02 Provider, Default [facility] ENDOSCOPY SCAN Scanning [facility] RHYTHM STRIP - SCAN 2020-01-05 08:31:43 Provider, Default [facility] Scanning [facility] RHYTHM STRIP - SCAN 2020-01-05 08:31:42 Provider, Default [facility] RHYTHM STRIP - SCAN 2020-01-05 08:31:40 Provider, Default [facility] CARDIAC CATH REPORT - 2020-01-05 08:31:15 Provider, Default [facility] - SCAN Scanning [facility] CARDIAC CATH REPORT - 2020-01-05 08:31:13 Provider, Default [facility] POCT-GLUCOSE METER 2020-01-01 06:33:00 [facility] W/PLT COUNT & AUTO 2020-01-01 05:37:00 [facility]OLIC 2020-01-01 05:37:00 [place] [facility] POCT-GLUCOSE METER 2019-12-31 20:50:00 Pat Mohamud [facility] POCT-GLUCOSE METER 2019-12-31 18:00:00 Pat Mohamud [facility] POCT-GLUCOSE METER 2019-12-31 11:42:00 C[facility] POCT-GLUCOSE METER 2019-12-31 06:29:00 Pat Mohamud [facility] CBC W/PLT COUNT & AUTO 2019-12-31 06:05:00 [facility]OL[facility] 2019-12-31 06:05:00 [facility] 2019-12-31 06:05:00 Pat Mohamud [facility] POCT-GLUCOSE METER 2019-12-30 20:13:00 [facility] POCT-GLUCOSE METER 2019-12-30 16:26:00 Pat Mohamud [facility] SURGICALLY OBTAINED 2019-12-30 13:59:46 Pat Mohamud [facility] - CULTURE + GRAM STAIN Medical [facility] ter ANAEROBIC CULTURE 2019-12-30 13:59:46 [facility] 2019-12-30 13:54:56 Pat Mohamud [facility] - CULTURE + GRAM STAIN Medical Matthew ter ANAEROBIC CULTURE 2019-12-30 13:54:56 Pat Mohamud [facility] TISSUE EXAM 2019-12-30 13:38:00 Tala Santacruz [facility] I&D,BONE FOOT 2019-12-30 13:11:00 Tala Santacruz [facility] POCT-GLUCOSE METER 2019-12-30 11:39:00 Pat Mohamud [facility] ECG 12-LEAD 2019-12-30 10:53:36 Unknown, Hl7 Doctor [facility] POCT-GLUCOSE METER 2019-12-30 05:39:00 Pat Mohamud [facility] SARS-COV2/RT-PCR ([facility] & 2019-12-30 05:11:00 Pat Mohamud [facility] - REF LABS) [facility] CBC W/PLT COUNT & AUTO 2019-12-30 05:09:00 [place] [facility] COMPREHENSIVE METABOLIC 2019-12-30 05:09:00 [place] [facility] POCT-GLUCOSE METER 2019-12-29 21:09:00 Pat [facility]ud [facility] POCT-GLUCOSE METER 2019-12-29 11:10:00 [facility] HEMODIALYSIS INPATIENT 2019-12-29 08:12:17 Brandie Khan [facility] POCT-GLUCOSE METER 2019-12-29 06:10:00 Pat Mohamud [facility] CBC W/PLT COUNT & AUTO 2019-12-29 05:50:00 Lily Echavarria [facility] DIFFERENTIAL [facility] COMPREHENSIVE METABOLIC 2019-12-29 05:50:00 [place] [facility] POCT-GLUCOSE METER 2019-12-28 20:37:00 [facility] POCT-GLUCOSE METER 2019-12-28 17:38:00 [facility] POCT-GLUCOSE METER 2019-12-28 13:12:00 [facility] POCT-GLUCOSE METER 2019-12-28 05:43:00 [facility] CBC W/PLT COUNT & AUTO 2019-12-28 04:41:00 Lily Echavarria KATHRYN S t [facility] DIFFERENTIAL [facility] COMPREHENSIVE METABOLIC 2019-12-28 04:41:00 [place] [facility] ABD AO & LOWER EXT 2019-12-28 02:30:00 Sakina Tamayo [facility] - ANGIOS/ POSS PPI [facility] POCT-GLUCOSE METER 2019-12-27 20:32:00 Pat Mohamud [facility] MR LOWER EXTREMITY 2019-12-27 16:30:00 Jericho [facility] - WITHOUT IV CONTRAST LEFT [facility] POCT-GLUCOSE METER 2019-12-27 14:06:00 [facility] WOUND CULTURE + GRAM 2019-12-27 12:02:00 Annia Delgado [facility] - STAIN [facility] POCT-GLUCOSE METER 2019-12-27 06:44:00 Pat Mohamud [facility] POCT-GLUCOSE METER 2019-12-27 05:49:00 [facility] CBC W/PLT COUNT & AUTO 2019-12-27 05:05:00 [place]icho[place]loeblanca PERALTA S [facility] COMPREHENSIVE METABOLIC 2019-12-27 05:05:00 Jericho Lily [facility] HEMODIALYSIS INPATIENT 2019-12-27 00:31:18 Brandie Khan [facility] POCT-GLUCOSE METER 2019-12-26 20:51:00 Pat Mohamud [facility] TRANSFUSION SERVICE 2019-12-26 18:02:44 Rocco Sepulveda [facility] REPORT - SCAN Scanning [facility] POCT-GLUCOSE METER 2019-12-26 16:42:00 [facility] CTA AAA AND RUNOFF 2019-12-26 15:27:00 Sakina Tamayo [facility] POCT-GLUCOSE METER 2019-12-26 11:59:00 Pat Mohamud [facility] POCT-GLUCOSE METER 2019-12-26 06:09:00 Pat Mohamud [facility] CBC W/PLT COUNT & AUTO 2019-12-26 04:36:00 [facility] 2019-12-26 04:36:00 [place] [facility] PREPARE LEUKO-REDUCED RBC 2019-12-25 23:54:[address] [facility] POCT-GLUCOSE METER 2019-12-25 20:51:00 [facility] 2019-12-25 18:04:44 Coco [facility] REPORT - SCAN Scanning [facility] POCT-GLUCOSE METER 2019-12-25 17:01:00 Pat Mohamud [facility] POCT-GLUCOSE METER 2019-12-25 11:25:00 [facility] CBC W/PLT COUNT & AUTO 2019-12-25 05:59:00 Lily Echavarria [facility] 2019-12-25 05:59:00 [place] [facility] POCT-GLUCOSE METER 2019-12-25 05:58:00 [facility] TRANSFUSE LEUKO-REDUCED 2019-12-24 19:06:17 [facility] RED BLOOD CELLS [facility] POCT-GLUCOSE METER 2019-12-24 16:15:00 Pat Mohamud [facility] ABORH, MANUAL 2019-12-24 08:25:00 Jovita Griffith [facility] POCT-GLUCOSE METER 2019-12-24 06:11:00 [facility] TYPE AND SCREEN, 2019-12-24 06:08:[address] [facility] es - AUTOMATED [facility] CBC W/PLT COUNT & AUTO 2019-12-24 05:51:00 [facility] 2019-12-24 05:51:00 [facility] POCT-GLUCOSE METER 2019-12-23 21:23:00 Pat Mohamud [facility] POCT-GLUCOSE METER 2019-12-23 16:42:00 Pat Mohamud [facility] MR LOWER EXTREMITY JOINT 2019-12-23 15:34:00 Tala Santacruz hy [facility] - ONLY WITHOUT IV CONTRAST [facility] LEFT MR BRAIN WITHOUT IV 2019-12-23 15:34:00 Lily Echavarria [facility] L uk - CONTRAST [facility] POCT-GLUCOSE METER 2019-12-23 11:16:00 Pat Mohamud [facility] ARTERIAL DOPPLER LEGS 2019-12-23 09:38:00 Tala Santacruz Thy [facility] BILATERAL [facility] AMMONIA 2019-12-23 04:05:00 Mariela Carrasco [facility] CBC W/PLT COUNT & AUTO 2019-12-23 04:00:00 [place] [facility] COMPREHENSIVE METABOLIC 2019-12-23 04:00:00 [place] [facility] SARS-COV2/RT-PCR ([facility] & 2019-12-23 03:59:[address] [facility] - REF [facility] POCT-GLUCOSE METER 2019-12-22 20:34:00 Pat Mohamud [facility] POCT-GLUCOSE METER 2019-12-22 16:43:00 Pat Mohamud [facility] POCT-GLUCOSE METER 2019-12-22 11:31:00 Pat Mohamud [facility] POCT-GLUCOSE METER 2019-12-22 06:30:00 Pat Mohamud [facility] CBC W/PLT COUNT & AUTO 2019-12-22 05:14:00 [place] [facility] COMPREHENSIVE METABOLIC 2019-12-22 05:14:00 [place] [facility] POCT-GLUCOSE METER 2019-12-21 20:26:00 Cade, Salman [facility] POCT-GLUCOSE METER 2019-12-21 17:22:00 [facility] POCT-GLUCOSE METER 2019-12-21 12:35:00 [facility] POCT-GLUCOSE METER 2019-12-21 07:20:00 [facility] POCT-GLUCOSE METER 2019-12-21 05:52:00 [facility] C-REACTIVE PROTEIN 2019-12-21 04:39:00 Annia Delgado [facility] CBC W/PLT COUNT & AUTO 2019-12-21 04:39:00 [facility] COMPREHENSIVE METABOLIC 2019-12-21 04:39:00 [facility] US ABDOMEN COMPLETE 2019-12-20 21:17:00 Sakina Chen [facility] POCT-GLUCOSE METER 2019-12-20 20:23:00 [facility] POCT-GLUCOSE METER 2019-12-20 17:31:[address] [facility] [address] BRAIN WITHOUT IV 2019-12-20 16:04:00 [facility] 2019-12-20 14:41:00 [facility] BLOOD GAS, ARTERIAL 2019-12-20 14:28:00 [facility] XR FOOT 2 VIEWS RIGHT 2019-12-20 11:55:[address] [facility] POCT-GLUCOSE METER 2019-12-20 11:28:00 [facility] POCT-GLUCOSE METER 2019-12-20 06:20:00 [facility] OCCULT BLOOD, STOOL 2019-12-20 06:19:00 April, [facility]ina [facility] IRON, TIBC, % SAT. 2019-12-20 05:06:00 [facility] (WITHOUT FERRITIN) [facility] VITAMIN B12 AND FOLATE 2019-12-20 05:06:00 [facility], Sakina Carrillo [facility] RETICULOCYTE COUNT 2019-12-20 05:06:00 [facility] HAPTOGLOBIN 2019-12-20 05:06:00 [facility] TSH/FREE T4 IF INDICATED 2019-12-20 05:06:00 [facility], Sakina Iqba l [facility] FERRITIN 2019-12-20 05:06:00 [facility] ANTI-NUCLEAR ANTIBODY 2019-12-20 05:06:00 AprilSakina [facility] (ROGER) [facility] KAPPA / LAMBDA LIGHT 2019-12-20 05:06:[address] [facility] SERUM [facility] PROTEIN ELECTROPHORESIS, 2019-12-20 05:06:00 April Sakina Iqba [facility] PERIPHERAL BLOOD SMEAR - 2019-12-20 05:06:00 Sakina Chenba l [facility] - PATHOLOGIST REVIEW [facility] CBC W/PLT COUNT & AUTO 2019-12-20 05:06:00 Marcial Chapa [facility] COMPREHENSIVE METABOLIC 2019-12-20 05:06:00 Marcial Chapa [facility] [facility], FREE 2019-12-20 05:06:00 April Sakina Carrillo [facility] ROGER TITER AND PATTERN 2019-12-20 05:06:[address] [facility] PT/APTT 2019-12-20 05:06:00 April Sakina Carrillo [facility] FIBRINOGEN 2019-12-20 05:06:00 [facility] D-DIMER 2019-12-20 05:06:00 [facility] POCT-GLUCOSE METER 2019-12-19 20:35:00 Evens Mohamudruel Gonzalez [facility] POCT-GLUCOSE METER 2019-12-19 16:06:00 [facility] 2019-12-19 16:02:09 Sharri Fernando [facility] CBC W/PLT COUNT & AUTO 2019-12-19 05:35:00 Marcial Chapa [facility] BASIC METABOLIC PANEL (7) 2019-12-19 05:35:00 Marcial Chapa [facility] LACTATE DEHYDROGENASE 2019-12-19 05:35:00 Sakina Chen [facility] (LDH) [facility] POCT-GLUCOSE METER 2019-12-19 05:24:00 [facility]ens [facility] POCT-GLUCOSE METER 2019-12-18 21:35:00 Evens [facility]ru[facility] POCT-GLUCOSE METER 2019-12-18 16:05:00 [facility]ens [facility] POCT-GLUCOSE METER 2019-12-18 07:45:00 [facility] POCT-GLUCOSE METER 2019-12-18 06:14:00 Evens Mohamudruel [facility] POCT-GLUCOSE METER 2019-12-17 21:44:00 [facility] POCT-GLUCOSE METER 2019-12-17 17:52:00 [facility]ens [facility] POCT-GLUCOSE METER 2019-12-17 12:22:00 [facility] HEMOD[facility]PATIENT 2019-12-17 10:33:08 Brandie Khan [facility] POCT-GLUCOSE METER 2019-12-17 06:18:00 Pat [facility]ud [facility] CBC W/PLT COUNT & AUTO 2019-12-17 04:14:00 Marcial Chapa [facility] COMPREHENSIVE METABOLIC 2019-12-17 04:13:00 Marcial Chapa [facility] PANEL [facility] POCT-GLUCOSE METER 2019-12-16 20:55:00 [facility] POCT-GLUCOSE METER 2019-12-16 18:24[facility]00 [facility] 2019-12-16 16:02:00 [facility] ANTIBODY [facility] HEPATITIS B SURFACE 2019-12-16 16:02:00 [facility] ANTIGEN [facility] HEPATITIS C ANTIBODY 2019-12-16 16:02:00 [facility] HEPATITIS B CORE 2019-12-16 16:02:00 [facility] es - ANTIBODY, TOTAL [facility] POCT-GLUCOSE METER 2019-12-16 14:47:00 [facility] IR TUNNELED CATHETER 2019-12-16 14:26:00 Sharri Fernando [facility] INSERTION [facility] HEMODIALYSIS INPATIENT 2019-12-16 12:37:39 Bill [facility] POCT-GLUCOSE METER 2019-12-16 11:01:00 Pat Mohamud [facility] XR CHEST 1 VIEW PORTABLE 2019-12-16 05:55:00 Marcial Chapa ra [facility] - / BEDSIDE [facility] POCT-GLUCOSE METER 2019-12-16 05:51:00 [facility] CBC W/PLT COUNT & AUTO 2019-12-16 04:08:00 Marcial Chapa [facility] BASIC METABOLIC PANEL (7) 2019-12-16 04:08:00 Marcial Chapa [facility] PROTHROMBIN TIME/INR 2019-12-16 04:08:[address] [facility] SARS-COV2/RT-PCR ([facility] & 2019-12-16 01:45:[address] [facility] Plan of Care Planned Activity Planned Date Details Comments Source Future Scheduled 2020-12-[address] [facility] examination Medical Center (regime/therapy) [code = 729449499] Future Scheduled 2020-12-[address] [facility] Test 00:00:[address] [facility] (regime/therapy) [code = 141101528] Future Scheduled 2020-12-[address] [facility] 00:00:00 [facility] colon (procedure) [code = 088156999] Future Scheduled 2020-12-[address] [facility] Test 00:00:00 [facility] colon (procedure) [code = 166156154] Future Scheduled 2020-11-29 INFLUENZA VACCINE (#1) [facility] 00:[facility]:00 [code = INFLUENZA Medical Ce nter VACCINE (#1)] Future Scheduled 2020-11-29 INFLUENZA VACCINE (#1) [facility] Test 00:00:00 [code = INFLUENZA Medical Ce nter VACCINE (#1)] Future Scheduled 2020-03-[address] [facility] - Test 00:00:00 (12+) [code = [facility] DEPRESSION SCREENING (12+)] Future Scheduled 2020-03-31 [...] - Test 00:00:00 (1 of 1 - [facility] [id number] PCV13) [code = PNEUMOCOCCAL 65+ YRS (1 of 1 - [id number]_Ciafamt PCV13)] Future Scheduled 2020 PNEUMOCOCCAL 65+ YRS [facility] - Test 00:00:00 (1 of 1 - Medical Center [id number]_Paeozsm PCV13) [code = PNEUMOCOCCAL 65+ YRS (1 of 1 - QTVJ42_Timjhda PCV13)] Future Scheduled 2017-11-[address] [facility] Test 00:00:00 measurement Medical Center (procedure) [code = 50548166] Future Scheduled 2017-11-[address] [facility] [facility] Test 00:00:00 measurement Medical Center (procedure) [code = 83653668] Future Scheduled 2005 SHINGLES VACCINES ([address] [facility] - Test 00:00:00 of 2) [code = SHINGLES Medic al Center VACCINES (1 of 2)] Future Scheduled 2005 SHINGLES VACCINES ([address] [facility] - Test 00:00:00 of 2) [code = SHINGLES Medic al Center VACCINES (1 of 2)] Future Scheduled [address] [facility] Test 00:00:00 (procedure) [code = [facility] 73084902] Future Scheduled [address] [facility] Test 00:00:00 (procedure) [code = [facility] 76997718] Future Scheduled [address] [facility] Test 00:00:00 [facility] cervix (procedure) [code = 788983643] Future Scheduled [address] [facility] Test 00:00:00 [facility] cervix (procedure) [code = 709363757] Future Scheduled 1974 DTAP/TDAP/TD [facility]ACCINES [facility] protein (procedure) [facility] [code = 145882695] Future Scheduled 1965 DIABETIC EYE EXAM [facility] - Test 00:00:00 [code = DIABETIC EYE Medical Center EXAM] Future Scheduled 1965 Urine screening for [facility] Test 00:00:00 protein (procedure) [facility] [code = 295257897] Future Scheduled [address] [facility] Test 00:00:00 [facility] breast (procedure) [code = 195053624] Future Scheduled [address] [facility] Test 00:00:00 [facility] breast (procedure) [code = 133666385] Encounters Start End Encounter Admission Attending Care Care Encounter Source Date/Time Date/Time Type Type Clinicians Facility Department ID 2019-12-16 Inpatient UR PAT MHOAMUD [facility] Nephrology [id number] [facility] 00:14:00 2020-03-28 2020-03-29 Emergency Clay Fine [facility] [id number] 15:50:00 20:31:00 Maureen Terrazas [id number] [place] [id number] [place] [id number] 2020-03-28 2020-03-28 Emergency X BABATUNDE [facility] ERT [id number] [facility] 15:50:00 15:50:00 CLAY watson [facility] 2019-12-16 2020-01-01 Hospital UR Pat Mohamud [facility] [id number] 00:14:00 10:00:00 Encounter Lisa [facility] 2019-12-30 2019-12-30 Anesthesia Rhiannon Underwood [facility] [id number] [facility] 13:11:00 14:14:00 Event Jamin Kearns [facility] 2019-12-30 2019-12-30 Surgery Neeta, [facility] [id number] 12:30:00 13:19:00 [facility] 2019-12-28 2019-12-28 Surgery Belkis, [facility] [id number] 12:00:00 12:54:00 Sakina Higgins [facility] 2019-12-17 2019-12-17 Travel [facility] [id number] [facility] 00:[facility] 00:00:00 [facility] 2019-12-16 2019-12-16 Orders Monica, [facility] [id number] 00:00:00 00:00:00 Only [facility] 2018-11-17 2018-11-17 [facility] [id number] 11:30:00 11:30:00 [facility] 2018-10-06 2018-10-06 [facility] [id number] 16:14:00 16:14:00 [facility] 2018-09-28 2018-09-28 [facility] [id number] 10:30:00 10:30:00 [facility] 2017-09-22 2017-09-22 Outpatient [facility] [id number] [facility] 00:00:00 00:00:00 BIJI Results Test Description Test Time Test Comments Results Result Comments Source ANAEROBIC CULTURE 2020-01-04 10:26:00 Test Item Value Reference Range Interpretation Comme nts CULTURE (BEAKER) (test code = 1095) No anaerobes isolated Tissue [id number] 10:21:00 Test Item Value Reference Range Interpretation Comments Case Report (test code Surgical Pathology = 104) Report Case: [id number] Authorizing Provider: Tala Santacruz DPM Collected: 12/30/2019 01:38 PM Ordering Location: [address] Med/Surg Received: 12/31/2019 06:52 AM Pathologist: Jovita Griffith MD Specimens: A) - Soft Tissue, Other, left 5th proximal phalanx B) - Metatarsal, Left, left 5th metatarsal DIAGNOSIS (test code = [id number] 3220) FuZzEwMzNcZnRuYmpcdWMx KXdkgmXpJIfyi3DdJ3UhZs AwMFxhbnNpXGRlZmxhbmcx CCTkPLK3ajYvLBEuCApiQA OiJNctCg8gvHVkiZryUeUe WHUbb9iscoFOpppzbGa5h6 vsFRVhLcB9uOChPJfwC0ik quQpsEDgHBToKZt7vY76JX WeoI2phIZxVAahgiPqZbA8 ORbwHQScKoC5VVLkvASiYK UkC7rdMRCrNRbgAIGfZHcw tZBcAFE7gMkeh2H4uVEziB LuyOqvHtGgFmRnLSQHe8Ec XZg2lXldY2ZhCLNyNrI4lK QgUGFyYWdyYXBoIEZvbnQ7 dT50CKkltdG7hVHia4Vbl9 7aw087oO6ajUHrXBT8QHDz HTBfaNQcDCRjPEP2HHWrfQ TnD6h8UuQwoNEmS2D1SsKr mRVtE9O8JkNytGVsE7W1Zf OyfQBoQOPfmWAqGx4ytIJc jWMqhi8oir38AKU0s5FoiF tvMXG5JFE6FvZhFj1fvIPm VSSvJY4nGkTfgVEbKAUemf 62dAooPVmgzrPzsM9sHmHw VBDxySGhSHJmKH7ivKSePL PiuF8qexbxFWUwYmCtpala IVHdrSykzhXoYd0tcQelRZ F0VRotW9etuH4hHiQ3ICvv D1dbnJ0bZEe3REdckLI8KF KnpJ5uTE2lkybaw2kqCmEj DZ5bubfco6qqHdFsJQ8eym l2e9roIrPxWG2ootatt1ti NzIwXGhlYWRlcnkwXGZvb3 FafokwUZNfk8DjF8VveYhu N74aaNdrB36iUCOlkKcwtV 7djYsajA1eHpYoCcZjCIrv bFxwbGFpblxmMVxmczIwXG urujztFTOfXOhiB6sfSfMs NTPxtXnkGPafz2QpHZOkVK BhRbTbFX2zJf4PTWrrQSSF CZZRFMAZERKXBq1FTR5WIP RWCWYWNP7GDKTYIG7IL2m0 LHTdcdNrGZQpWJTPGY4vN8 zCCKTXTkFLUssEWF8ITEOW UlRJTEFHRSBXSVRIIFNVUl GKMJ2WOI2KOXCTUQVYQGRS RCBDSFJPTklDIElORkxBTU 1BVElPTlxwYXJccGFyIEIu IEJPTkUsIExFRlQgRklGVE ggTUVUQVRBUlNBTCwgQklP UFNZOlxwYXIgICAgLSBBQ1 FVDVJAC3VZM42JQJvGBDhN IFxwYXIgICAgLSBTRVBBUk XHZZXWReURGETDKXJpY7Qf UksELz4FD23PAPVLAGOKZO ADH9TNSZYSRLSSDVHZK2QH I6TiJR5VC8YQR1xRHRIPMZ BHUkFOVUxBVElPTiBUSVNT ZSUqDm6NDNGZWO8WVNXxeb 73OWN8WbHyq4V0XSQ0QSAs YKXfp4qxYMFyjRRwBwRpHv NcZnRuYmpcdWMxXGRlZmYw a3gqa763zFKiy3prGXTpXu N6qVJtTZLlqONbB416AFHh PNdaj4sai0XeFMAkrFFfq8 W0RKDWvfsnlJp2kPqyA04r w3G2LwwwS0ldPIBgTESdN6 KyIW5fICAxPsm7XAP1NKD6 ZVCeVMMcM9EoCO7oDGQdbT QvDPj3v8vreCuwDXVuCUX6 n0uiZVnkrdDxTW3hjl3tgQ f6r6wqtfAkEUBoSGHyrHUD XOVqI8DozSpqPf0ftOw9eO vtHzyrRIH3Ksh2TS6tlx09 dls9qQemWWKsgklfUdF4LJ zvYCJbijraEWd2XDpbXDVm bKQ0BPWvxFWnQ3HfBCXrPL 5xxuh5FMQ3WTekBWVoXpS0 NDBcaGVhZGVyeTcyMFxmb2 74MPE6SzQqUC6rT5Zwh1T5 qX2arIByIMCmxKOrJyQcWO Oqme0biCLzHLynq7ZfUMV7 qmX0iCOzaHQkFSLvNtO2LS bkEK2vyl50HAJmPHO5hs6a bGNccGdicmRyaGVhZFxwZ2 YhFIMng725GCUzK8SePVBj x2N2xjKoZxSnNGYvzWH8gq L2VAUkWG4yqkxon9sdQLyh GAwxYYLagoY8oiT3FSVwcK SoH1KuoK4uLLFbWA1cppga n2rtLZY6CQsgUGTjJTP5Cy GiSRWhf6Avkar3BbWnp7Ne hIDbUPcmT55qh406FPYtgt TqO9ldaTUdegcwzHXsragb JDotilV8ARKbQUdnvbzlIS DdFFayL8xmWiOtLFFsdIlv BFkmp9BfBQDdIWCrKnIgaT KyLBQzGug9YYZbyCKyNRZa FxOnB3jjqbmwWrQIYPZls1 txA9bisZHWkJYeB3QjRKqj bfZcWPtpJJmdCWS4OYF0Ae 06RnY1MBCwtk23 CPT Code(s) (test code o8ctnMFrJISozIErTmWrIE = 3357) ReLJSzs2qnGCAvgXGlRbGa MzNcZnRuYmpcdWMxXGRlZm Vjw8fxu040uGXag0naKRQu UvQ2fAClSVCpsUAyT472q7 puf3ogzlSeqCQ3SZIyQVI3 FNtlneYuzxT6CKwzpGUyGq W7XXnvdbRySTkyudOlnhLk San1OQCaP164LFY9oBakz2 rmRDR4KZFqBNKtFdIuNz1s rZJrY955AIMhORMVPKMjsY y2QRIvueSwtsThhHDHl351 C220q2lmRXZujzRxrAiNws kju6uzC931UPSwsNNznxFe XvSqFZFbhWWvkYA0AHVfPA 5snlntVsTuGT2ctcfpQgNr TJ9zlhf9VxWkLE6eeqqjIt JfCSylBHOxezflTQCkj8It hipqTA7gN9Val3K9oD0drM MdRMJvqKThCsKxPAGkgn4s ePDfNGeph6HpZZY6ziV0vG FpqLWgTBTxNL85Pokch5It WjltEAH5YUBjsuYmv0Zaq6 mtTxQrtvRkJ5wyW2CqRNKp HFDpIPCaGiWkjnZqv3Vjw6 DpzUAixOg7w6lbJGRlQOBp mWytu2rqAJQ0TDBjE3I0nS Ldy3wdSOevCSJsaFP5oxos AElePAHnqjL2npfdFNknHJ GfcPS9astpXQryHBErHgI6 oqrnRPyzWYWbKUK6QXzhj1 92TUT7KRpsFqxsCGwaNQTp bmNvbnRccGduZGVjXHBsYW luXHBsYWluXGYwXGZzMjRc ePhnzDlqzW3eDbVjNrJaGW mmLU4wSTJqP4wnoLGqLJYx AHXkG6ciGxEsfH6akXspOI pejzPtFE1VM8I5CAClhwZ1 KIOfZlL0EocwVXLiNZyaIP EgeDJccGFyfQ== CLINICAL HISTORY (test t5wwmOMoLMQguHOfDuJwJL code = 3356) PnUOGdh0flSMGxgJEkWuTs MzNcZnRuYmpcdWMxXGRlZm Seh1lvp530dZQjl6uyTQVz UuV0iAWsKQTnzBXxU331o5 sju3zvwiRjnWM3MRMtBAL5 KYokfsYocdQ9KAtcoRJiGg U2KEqnkiDyOVfqtyCpeyZk Qkc3SZSmA450VIG7oLehw4 dgZFH1YANcZGRwQsGzDn4v bWWnX766TNVyOZUDSCRwxS b2UGEdjbTegmLgxJKVz902 Z074a2brAMSbrgViiQnMws gue8ejU909QGMphTFgrhUl BxKcSCQpwKYktFV6VDOoZN 3frbztLxPkAV0xcipgPtBg JB6kemc2KfVoDJ4vyycrGo MxFIdlKMBghertYWPui1Pr apbvMX6hK2Nep4D8wL7evQ PjCBKreBMaFgSlPACtpo7e xINiSCxsu3DjRGT4qgF1uC BafCYeXYBzDP59Uynqy0Rm EemhEAM8JTUqoxXgs9Aqc1 fzYjFkliMrI9eeF6EuFURt NVOiOFNwFzRqkxXjw3Jjy5 ZpoIEjnWo0u8qsEMEtRUJw xJmsb2wcBHP0AFHcA1N7vI Grj3ckKLjqWVWdcQQ5qzcr IUopKLSdcmO5lhnmFQnkQF HoqAF9ioqoNHbgHTVoLcU3 xdzjESwqOAVkMQP1LKexp1 51VIZ8HVasEmnnAJkeFQHh bmNvbnRccGduZGVjXHBsYW luXHBsYWluXGYwXGZzMjRc fMoibHxawI4tYuLpHiEfAL xhPP4kXAUrZ8lhoCXmJTOa ERKhE2nwZtArdG7cnPpeZI wgldGyUN7cdLKhqItyhFf9 kRVlo0CyuZQzjIS1hQfmqW Y0GLBotwRpjChxyXnfRUSh i3LdJtyzPVEjjgIcROTtPJ RccGFyfQ== SPECIMEN SOURCE (test a5ubtNKyNFMxuQSyPtQpFL code = 3377) NyIARex3aaPYEbfXTuSmTn MzNcZnRuYmpcdWMxXGRlZm Xji8ojy985kWUds0edIYGm YzX0vFMbAFAtmQPyT466y3 tct3exejHwfLP0LARcXYW3 EUvnplObgrI9DVpccAJfTe W5QRtjxySrKDvnzoBommPi Mzb2OHMmI690TEH2hGomu6 hvLRN6HGFvPHCmEsXwTe3h mLRwR117GSVeHIDHCWVrvD n5WOMvgnCrxjGjlTTWv315 Q445b4pyLJWlptVjlIrGie qhq3jaQ377XLGbrWDopdBh RrUzKEMliCHquMP8JAAsRK 0ugzbtMmRmRG7orglhGmQs ML7hszx0NwIsBT5nzemiHj VpUNjbEPKaphhlFFXlg1Ed nemxOR4qJ4Edd4H3eI0mhN GaNXRnoYAqUmZwLHHoyi5s dLYkJHcqz2AlASQ0txN5hD AyxOBoPKCnML66Pvdqq1Xu DcroXHL4JGNcpjMnt2Bch0 thIkWvmhZjO4fpN9ReTMPh HJFaKRNtSvUqmrIkb1Tpc5 CozKNsjDe4h6tyDRBlLELs kRvbe3ueEHO0OQZoM8W0eT Xgv0tqIEuqNALoyNN1shkz PLzeYXCsdaT4ilwyBNwiOU RbrTN7xugcALkmYVBnWlY1 tswaCXdlCGBjOPF9UVjbw4 11JVJ9JNnxUvrvOCikHUEr bmNvbnRccGduZGVjXHBsYW luXHBsYWluXGYwXGZzMjRc uDrrvVtqjB1pQwEtPxRiWG zrQX2eKASgD6traJIhBBFs DHOqG8ffWeHkaB0vtCvwRG xmczIwIEEuIExlZnQgNXRo GDQcn7ghbPEjHEPpDBmvev raBPWoBTcrSwTsDWRjUS4h xFW3EQHdOPcpJVCpoi0= GROSS DESCRIPTION (test z4vpjCEbVQKoeQXbTkLsXB code = 3366) IcAQPnx1vrQBCegVSePgDx MzNcZnRuYmpcdWMxXGRlZm Zdw2iff885eUVqo2swCIAl DjN5ySNiAMUqaKXoG171LF HeNFnaa2mti5WfRKRdrPGu t5F2HEBOwazwhPd1zEbrZ1 2vx5S2UigfK5lnCHVaOCIj V2VyDG0yFKUwKic0PGM4AV D5LBJzROAzH4WkMD9xVCTv rSJfXIs6k2kymDicMBMmYN S3r4wySJgohmCuWR8chq8m eQp5l1hbqdNrRZFwBRIbpW ZLSBEhC7BiaNpfWh8jeKq4 tXjdLkeeHPF1Rnh9IO9kgv 16ifh2mGziJKPjkkxbZtE4 FSlxLEOwdomuOSl4ZCxxBK JnbDcyMFxtYXJncjcyMFxt YXJndDcyMFxtYXJnYjcyMF dbMGVrMFA2AVhap470VRY6 WOplu9yln0ooeZBtJht9SV CqWsWnWzrkOOqqu3Xjy3gi ZSFwlt3qGTV9mFCqhBfqj2 I8yZPiBZSidMFyixLuXLVe RcJ8NPduTE1pbg41AEFtKU C4ic1tcOBkwMxrwwShdAVj FNqlG4GoRBYpi470DIXnN5 ViNNJsl6P6iwZnFkDiKVXa wQT7vlJ7MNYcNMo5sFHqpi P5gqCioLJqJ5axwD76HqJd wTJwB8TlwC92GtRluIBpY8 SqiU14AlUbtYPiW7UscA08 ShHsfPRtLJAcwFHpDw7dlA NecGDsu6HkhSPiYDmcD39a c177RGXxecUiL1ehrPZoiw ixmJPcedagMXzsemW8DSKb XHBsYWluXGYwXGZzMjBcbG FuZzEwMzNcaGljaFxmMFxk AsIdNXNpCWypM6qiXcIaGu JbLTSNtBRnbT7jfmOGENag NWLmX2HpbfFnGNusJIYsbN N7oKIdGOgjKmElUFNyq4b9 cLT2bANwvDF6tYGwbTxgMO 2fgUTyVA6sQN6yFSilZSzz ffEpc9VuDU70gOPbpoRvbv QgZGVzaWduYXRlZCBhcyAi y85tmGN0vWJeiVHdEH74cR WoZtgrV24ru5onlDPzt7Ah r8apaWGhfGCvcA45RRUfxt UfYdTbT59evwVbNP4jZIK2 cmluZyAwLjcgeCAwLjMgeC CvXxBhZ14gDRIyADItbUBu cX3yvcZqqrNggKCkbCP1TZ FfFZ26xZDtuXsafO61coYN BBYtfoIobH20nvKbTAEzwX Cde1v6iSlihy8kxNPhLLYg tgHUoPSdeD2wqjLBDSliHH FcO4LfqtKoAXraMFFljSR4 jTLiNKigXaWhEZEme8t1eQ O9yBGilRU6hVPzkNcoLY5z sNAnUZ4cNU8tNRytHIdjdj Xsk1JxDV02pEJcwmSngkFq ZGVzaWduYXRlZCBhcyAibW D9IJLykkZmbSVkNKX9Taxj X81pz6axpVNbo8MxTm85wc FeELUfIfLwr95rnCmcw9Af DDEnQLPfd38eOEVuXGlpJV 92qyMmNLUisNZffujqWq2n GMbhAM54KClbBU78UBPhNZ mqGQKrX1SoG9H3EJ5moScj IHNwZWNpbWVuIGlzIGVudG tnFNh8SBibaPTkdcyvDBsg czIwXGxhbmcxMDMzXGhpY2 osMiPgDSOduFoiZRygz5Ac PGQcFHAtIgPtReNaCP0yVZ ujlA5oNHTyVDfwh40znDSg o73sFNGgUVbcVQMxSLMoEu BcbGFuZzEwMzNcaGljaFxm GWnuNxQkUPAqQKhiH7koPt BcZnMyMCAgTUcvZXdccGFy fQ== MICROSCOPIC DESCRIPTION n6fyoPKpOXYwlJKsZjWjTY (test code = 3371) UjPNThe2fhZQZbeOGsIyEf MzNcZnRuYmpcdWMxXGRlZm Mct7zza894cKUfm3deDIAd OiA7vUUmVNDluZEdI924t6 loh0tzynDxpGZ3NPLcYZG5 OYxkitMlkuU8GLyizXHsZd I4UOurpiUkSRsyxwDbjgCf Nms9NZIwK917MFC9uAvjm3 qlLUX7YXCrBIWfKtUhRw8d eANbW672OAOySXRKUKBzqC e1OBPmnhGevuLejJJRm976 S549j7vaQGXopqKuqVuIks vze8pkE470TCEobRWgntQr GjNbUIZuoOBoxLX3OTXfOJ 6mfpxzUwHjPW5lmnseCtLz ZG4amhc5AiCpBK1fhnuyUr ZuVPlfIOSympinKMAsr7Hj feofIS3kJ7Oas4N4bS9bxY LxUAIedTYfVuRpIDTzsn2k cZMsMTsfh6VkNQY6lzY2yK UlqYEjINCeXY02Yxlaa3Zx MdheNZJ7MFMkmvChe5Ugu4 ocRvFqiiCxC1hpZ5NwOJXr BGQdMVNkUvLnbxWlx8Wno8 HnwCOwkDh1c1tpOYShDKOl vZfrk5grNGX9RYImW0N1rZ Snw6yzYOxtVARyvET8znjn UJrlCLVspsC2japtNDkcRF NojPK1oiznSUddYCQpYqJ8 hzciFHafCZMlHWG7YJvse9 28ITT7VOneDsfzGRymHPUv bmNvbnRccGduZGVjXHBsYW luXHBsYWluXGYwXGZzMjRc cMghtJkfrR8aKuYcWqMiTS sqNX3zXQSdG7yxbSCxGCJh AGTpJ1vtMwYziZ5vxFuzBJ vpszIuWMBaFo6iKOWaRo9y bWVkLlxwYXJ9 Gross assessment was [facility] performed at (test code [facility], Department = 2777) of Pathology, [address] [place] [id number], Technical component was [facility] performed at (test code [facility], = 2778) Department of Pathology, [address] [place] [id number], Professional component [facility] was performed at ([facility], Department code = 2779) of Pathology, [address] [place] [id number], [facility] [id number] 10:21:00 Test Item Value Reference Range Interpretation Comments Case Report (test code Surgical Pathology = 104) Report Case: [id number] Authorizing Provider: Tala Santacruz DPM Collected: 12/30/2019 01:38 PM Ordering Location: [address] Med/Surg Received: 12/31/2019 06:52 AM Pathologist: Jovita Griffith MD Specimens: A) - Soft Tissue, Other, left 5th proximal phalanx B) - Metatarsal, Left, left 5th metatarsal DIAGNOSIS (test code = p3bopKVkINLyv7qfVQRbtW 3220) FuZzEwMzNcZnRuYmpcdWMx CKwqnrHxXPjod7CmI6NiUz AwMFxhbnNpXGRlZmxhbmcx EWWcREY5mbRpTLShHIhwGO YsFCjrZp6lsIOhmSdxAjDw XSVro0mqnrGDgylsbZv1h0 zaTWWmHsZ9nISbTDvtU1bv ccTghZJjTRQpDJr2hB34VN DbbZ0xiMLpZWcuklYcUrM6 THmyOPIaOcX5AXNkgTLtEL EhI4xoMDSwEWgcXQLkYNix cDFoPKI3uPokd3N6iRTgpS LqsDdzKoMuWlBrINRFm9Ae TGl0xEtgL4RgLDRkVjL7gK QgUGFyYWdyYXBoIEZvbnQ7 bY80PFofnrW3kOLdi1Wfh7 3ai755iB4wsEUuHNY3KWFw UILfxDEuDWNjDQB3VBLroG UsO7y8TeQdmBQlH1S1EgGb uDRmY0D0GsGlwKKnH7G7Tc XstYExDWRgrFRiBk1kaKEh nPYhdg4wjq70EWI8r1WceH veOIS6KDJ3SbCfKd2noZAs OGYsNQ8fBpXykJBbWBTeeo 89sRvsOMbykiLwyO3cAcCp UVNpvAUmUZZuUE6okEYgPX PjoM4eubxcFULqQuYthmpe GGQujSjchwLqOv5sbWayYS W4KSqlB2swlH4nUcL9JAho S5sutU3rPDa8TSgcvMA5UM ChcV3eZN8eflhlw8msCgVc NQ0revtbc1pnWmIqCN1gwv u4p9pjJeFkVA3sanweh0ui NzIwXGhlYWRlcnkwXGZvb3 PbpcmxFMFbj9RvU7VikYmg Z26yxGzkE92nGGFuyXwxeO 7hsJlckU9dVvAzPzVrPLzc bFxwbGFpblxmMVxmczIwXG qiwupcMYQrMMhdJ4odXhIw YXKfgScsXTiqs7PeFRZwPA MwNwTuMJ6aNh7YPHvuAYLI ENKOXLBGWPRIBz0CYC9LTA LRGVLWDD8GDXVJUC0LK7f0 MDWkkeWhDRUvAUKHDM7eW1 uYIEBTSzMZOwoAQF0NKALC UlRJTEFHRSBXSVRIIFNVUl GFLA5GPM6CUQJUWLXFQYNX RCBDSFJPTklDIElORkxBTU 1BVElPTlxwYXJccGFyIEIu IEJPTkUsIExFRlQgRklGVE ggTUVUQVRBUlNBTCwgQklP UFNZOlxwYXIgICAgLSBBQ1 RUGVWPF4TUV99SKTlGHBnB IFxwYXIgICAgLSBTRVBBUk SMHENGLdPUYTWJQVRkU5Nt EjgVDo7YT51OSTNKPWYIFP USQ1XXFFOROLTQEBPDK5ED T2RwDT7WQ8XBR6fVTDKPUC BHUkFOVUxBVElPTiBUSVNT NMRzJl0TNNAZAS4KKPOxse 88XIM0KfXdd8S8FOL3LNIw DTZhr5cjBGTxyVIkSmZwIv NcZnRuYmpcdWMxXGRlZmYw m6ekg000qMWvy0asBUZaDu E5yLZvUDZhxDFfV890MPWq GChoq8fai5XkUSRekPOgx6 I2LKKIznduxPe1xMokB87c n0C3VzbpC5ocPICjYUGwV8 OeTC2nJFGwGxt6SVJ9GKS0 JHNnJQPaM4MsAB4lFITtlY ElUHg7b4igyTlvDVEnSTK5 c8ldLZqjkxXvYT1tir0ptG i1l3pvqgSpVDLmLLKabYIE WVUrW8RtiCjqOu0ykGz3kI vbPcyuJTY5Stw1PD0tta54 dst6rDbcJWCwfuaiWaK9MB nnCQWicivnQOg9VFjgHHBo aED5YYTviZNrI2FePUNnNS 9oiqb6HAY0NXjfMZRaKbI8 NDBcaGVhZGVyeTcyMFxmb2 12YQB1YpEvCO8rP7Bzs7G7 tF9dpCJpWEObiZOjXoLiXO Wtwe1glULuXZmtm4LxWRS3 mjO8pSTuyVMiLOZqJjW8RA mmVA4kfz09GQRxNWL8tb8x bGNccGdicmRyaGVhZFxwZ2 ReUNQqi440UVQxD3WwBNBm u6N4riAsQkSzXVAkyOW0uq Q3RDItSQ4yakofv2rpIFdc XOikQNPliaS8jrH3DUTzvV XvW8MqrP8jAIQxFP8nqumd u4quUNE6PLjkBWBpBPW0Sc DcCTWjo9Sxcye4HaEmt6Ey jTJcGCobN06tj225PRNcoq WwW9fnzVHidbbjhLNnkisr ULkmlbS2OYLpDZsdnhyiHQ VlQRkrP9gyRvJxGVFsjEsp HCmqo2PmFHRsINNjVlPkaJ DnHOHvQxz7AGQqqQJkFHQt KxMaC0kzrhqyQwTBLMMdv1 bxR3wyvZWWtEEcU4EiHWca gyQuZAugDFdhZBO3XKZ5Bg 04LjY3FLXgxk71 CPT Code(s) (test code w5qehRHfHLXloGFxHeUtQG = 3357) OsDVRaa0igESLriYHpPsDx MzNcZnRuYmpcdWMxXGRlZm Rgx3lrv014kDUef4dpMSLe CmP2yRGjZQOlgALbJ883q3 nqm2uxuvVsjUR5BUFcHRJ3 OTlfnqWxxjU0YYmoiICoXm Q8HIkdvzArQQsygjUukaMq Paz0QOVaK096UGQ0bVqpu7 xpUQR2CBHqMMAqCjJaEd2e oXFqG824EIRlDMJTHXYcdS g1NRFjomVkvhHtuVOXj693 L902c2qgHEBaqxZueLrKxb yay0xvX599JNQnbWDqbyBb RiHzPXLycTAngHL8AATrBP 1qmozmLlGoIM1dwcwnQrYp MF0rhny2QeJwZA6ojtzrEg MlCQhePQFsunjkPWRln3Xp gkdnJP6eP3Ycn2P3wZ6pcQ IuWZEbxZTmYqBoQVDwud5q sDFtTIbpz1TsATO1oqH0gM ShcYUtCSYdHN82Zowar5Cf BrltKCN9UFKwvnQft1Rii2 fqJjAqgzOvA0ewH4YoVKQj OTIqZHNeUaEdbeYqb7Zqy8 EwhQEsqRx1c7muCCKqQJCg dMxty4ewZMP7BKXuY3Z4jT Vyx7fqWWmkIUHphDM4ugnk CZtmYPEwtcT2bopmENsnHR JofQA4kaepRMahAONjWcA2 luslJHtjNXRbVPG6QLmyg7 78AYA6OQwqBbujHEpyUCOv bmNvbnRccGduZGVjXHBsYW luXHBsYWluXGYwXGZzMjRc gUefgMliqK9xKoIuHyBqCZ ohWF9tVVSeY2iziNPxXFEe FFTsE3vnExVnuV0hqCdkKH bkjuQwOH4BM9I3CGPjjhX8 SRNhGgE3DbizCXLcGBpuCJ EgeDJccGFyfQ== CLINICAL HISTORY (test f5uzcMFbJFRbaSZsIbNwZW code = 3350) MhWCRas3qyHKWsxHFzTvLx MzNcZnRuYmpcdWMxXGRlZm Dnp2vbb178hXVno0ruZUAr XiK6iATcZJDbiKCnX767m9 ixv3grfcFufIS7OHIuSMT2 IElvcyZiopX6RTymmZDuHi S4ODokujBgQPrwbsOzyeNa Luc7XGPeP210BDS4fJsbx9 ksEOC0FBSuJWQuMpHuJm6o dBJuI612NAXbGIQPOLEjdJ l1SLHscyRxvdJekIFUp889 H141i1nrYSZiemPyzBtUzf kib1xmJ181ADKfiAXpywLp FzIyCEFhrCDuuSP8MJSbZO 1rdltbBwDbJJ9xgbiaCqJd SL5gnhv0UjUlYP0hwjbmTw IxAPnwDQRwridtOOXmd4Qf bqcaGV2hW6Ane1F8jL0tmO FdDTLtmLTwMdUsJMHkjs0c yDVzTTpwr6NaLIO7nuE0oS FcbRZfGZOnVU27Sfphr3Ih AcsaWAL0DREbjrJqr8Gyj9 geCtBtgpYqJ4weW6ZmDGOt IMYcJIKzOiEiojNst0Qvs7 OexQRbzKc9v7aeNZGbMWSh vPbym3paMUC7BKOkX2I2dF Sqy3hlOFhhJVOzlTU7jxvb NGvpGSShheU6kvkrSQegLN PjiIH0ygorTHadDKNiQkZ2 dmriAAfaFZJtEKO3JZwzo1 45CLN0NKzpDvlgSCaeCGGl bmNvbnRccGduZGVjXHBsYW luXHBsYWluXGYwXGZzMjRc mSvjuIpfaY4rKjJmYoDbOK jhBQ8hOVHiK4eorSMhGAAo TOXaS4ijBiSrpT5brRxtCW woqdRhJT8opPMuiLofcHz3 sEMvf7SdiFZtvKX0sPnhtX R0GCOdtpPzqAizvXmxEWZd e1VgVehzUVOvzgGiXVTeAU RccGFyfQ== SPECIMEN SOURCE (test f7usuUTmYIJenAEiApHjZY code = 3377) IuCDXlw2pjCBOezKJiPxIc MzNcZnRuYmpcdWMxXGRlZm Dhp2dib471hSYyv8meHOYh PhR6tEVlRDEbbVZuU219e8 kjc2xjgoFjfPI3YTWlRMF8 XBggkaJddsO1DAeeeXNkGh M0PWhgtvUtRZdhvoHmplSk Otu0EYXcF083KFR0qKjft8 tlPNA9KNBtQYRnNeLuBh2d nBZzQ225CGSbTTYSQGXawP n3HNBipmJlbmEpeUFRn380 J518p5dgINSyniAljLkCor hwb0dnC397MIBjoUPstuPt EaUfFAAmbAHreOG6JPRzQW 2zawmcMvWjTI1hxbwzVqOt WT8pjzu6EeCcEZ6fcwvfTi WpVUaoBPIoccdeERJrn8Is nywsWG6hU3Kjk5W4jV0gqV PlLGFncSCsRyExDFHtbc6o nWGlRCkwf4IuDYV6vvA3wJ BbdBMiWMUyMP53Miynz2Vy RwxgKGX3NNOpfpYxy3Vhx6 zxNkVoruFrY8meK9PjSBVa HFRdMOOtLtCbbgUnl6Bty2 ZquAPpcLe9s2viMMZkHLFe vAeox6wsOJU6UASiG3M6gB Zpo2qiFVnoSCPhsRL1quir LWjmDOMjbeW5afofNPjnZY GwlIJ7pvqoHClaTESgOkC6 sbvwDPuvIYMmPVV4OBnlj5 12ZCJ1SLcfPwpnZEjbXUYc bmNvbnRccGduZGVjXHBsYW luXHBsYWluXGYwXGZzMjRc fOjazQjyzT8bWxVlIxKyPP xyYK6bPRQzZ0qmnWVmJVUl RMYfI9ebIbUutZ9opTjqSO xmczIwIEEuIExlZnQgNXRo QLHhg6rnkSDsCTJjDVuisg sfCZEsHXcqMkBwQIXfJL2a oYJ0CRKnWXmbAYYshu4= GROSS DESCRIPTION (test z0kabHYrJQHfnDTkRrMfUC code = 3366) BhFVYom9mfOVSseAGaMgTx MzNcZnRuYmpcdWMxXGRlZm Vtn5mkm229aCBdi2ckQCZx ZuN4nHAyGXYysDYdC243ET SfSMidq6qcd7LnRIEchTKu q9J2NZZDdkgvdHe5zZlpB4 4bn1I7JkzoA1ziXINnUKJa Y5MuCI4wMHQaLla4EEC9YI I5YJUiWESzE3FvWT0kNUQf cHQbJKn9b3ygwGgbRAGaEH W9q7hsZEaivlTeED6zoo4g qOo5x4afwrUdHUTfXKWhgA AAARLdN9IozTutXo7siSv0 yPtdBzziMJV6Mnh4TE6auw 68gjh2lMboHLReixwxBvL4 HMoiALAawkomKRc9WDbyVB JnbDcyMFxtYXJncjcyMFxt YXJndDcyMFxtYXJnYjcyMF ydQEHzYTU8EZikc655MBC4 KCsle0xrd3iajAHtIkm3AQ IbRbFwLtjcAFlha4Fkv0iw RMOiev0qHQH1jUNrwGqyj3 V5tUCbWNHlpTVaiyMiNTTb IuD8EIicJR9gpu28XNBnQE I4rx9fkVIkyFglvqExaUIk MIqlR7HcZSQrj970HOXxN5 MsTCWri3F4zvFbUcJpOZFs dFY1teM2EKQiDIa4uJTrbs B6hfNacEIcC6utzW78BzDo rEUwP3FhhU48SpVauPEkN9 LfdF69DmHebIRoF6BqmY67 YqIboLCvNQJrmQEvIe4mlW EbpZQhj3CrfNEqNEbeE83m k802RSHmsmSxC3jisKCnta oucPBchxryUNucmfN2OJLv XHBsYWluXGYwXGZzMjBcbG FuZzEwMzNcaGljaFxmMFxk TdTxNPTxMVuzW8hgNbDiQc FtPFXAuVMczT8hwkMJAVxb NXBmQ1DeqoFlQJhcPPWnpO A6dRVjYGetPeYvRMLzt9c2 nBJ5gZIzbQN6vHTqgJzyEW 5bhQDfEX7hMX3pRUxmQBgq ioGov6XmNX66wBJwhiCzjf QgZGVzaWduYXRlZCBhcyAi s25zfZX1jYBkmMUcEX69fR JdGynrS42sn6wdyHHck7Zl b1rgrTBvaVDxoD76ORStah CxPdFlO59ckfWkUC2jZHQ8 cmluZyAwLjcgeCAwLjMgeC JyEbLvG20vXMQyBPTqnHRj fR3pjkGpgaMfvBTbiYJ5YZ AhUZ48rCKdbUdpiE26hqZH UJLfkrEniI82fwGxLVNcsJ Nlk7k1kWmmag2dgSLuIHZy jrLKkPRsfR7tovAICVimNE FzE9MlvoJlYGseZYOiaMK0 yDWfBDecKuMeTXPxo4s4bQ Y7rCFasGA3uZNhwCetLT9a oXWrRB6uIO5dOUjlFXkoue Hdy2QsJQ88uFMkqtGvwaGt ZGVzaWduYXRlZCBhcyAibW M7XBOtfcSeuKSfCXO2Ktkv P71mu2debIRiw5TsVy04na FuLGMwHwTyp53btBvcz1Aq UGIsJLAwk73aMNRnVJgtBM 46xcGfHYXfhCXbglizXe8k LBhhST82CXyeLU85TSKpLO sqLRTeM3DnK9P6CX7snTmr IHNwZWNpbWVuIGlzIGVudG nfINc8FAmhcPNlfsyhCDhu czIwXGxhbmcxMDMzXGhpY2 bjSiTqSPGecTgcQVtgz2Xg ATWoPKIgOyIaClAnYG4fGO lhbL4qMIDcICfsr73wtQNc i43wSMYgMIcpHUCnVQScWb BcbGFuZzEwMzNcaGljaFxm ZCveAkKuIVUnRYfmA5usWw BcZnMyMCAgTUcvZXdccGFy fQ== MICROSCOPIC DESCRIPTION n2hnwRLzQXNvmVRwQfBmHQ (test code = 3371) OiCCYac5urLJNyiOIxRtPo MzNcZnRuYmpcdWMxXGRlZm Ujs2jxg487sGFvl3apBSBn BvR4fVDqRGPxuHUnU816d2 xlz7cyyyNwxPR3OKJuFJM6 TJamldGkreT1DNskrNMmNu C4APoakuNmJFxhqyUemiUh Rom9ULDmY855ARJ1dLdbl3 dbSEA8MMUyZXKyHsLhUh9d iPJnQ027FLFdTJLTINKafL h7PESyuqJoueBmcEBCo222 J000m8jnCAIklxRdrOjZfc chx0fmZ291ZGGgvIDempUe IlCuJOZptJYniUD3ELOlGD 1nfwqrMzQcFZ4uofxtLjVi ZI8rfns1MpOpWE6ytwazRk NpNLotQOSzhamtMOBrg8Gy twukJA3pZ5Vla0B1xA6ckS LvDNYpxBHzOaWqTKZdqs9u kHFcZAkmw7EjHTT2tnK1sI MwwFZfFEYnAJ37Jwisg8Lg XqzrUPQ8WGWrgxJtp5Tkg5 zzNrRmdyLuE3krU4BbSEIi POSiVXWwOpJiwzAzg0Dxo0 BjuDNopFq2m0oqZOOhPHNx zLkof1gtXXD9IPWnW6Z9lK Jbi2wwLVmuRMGgqKS3bleq UVqpEJRcoyZ0ltngFQklRW ZnfAL0zkoxRXgtTZVeNeH0 qplyAGfiZPFsFEW6WLugj4 03NWU1RKnpQqjxYXnoTISc bmNvbnRccGduZGVjXHBsYW luXHBsYWluXGYwXGZzMjRc vQbcmTekvA8uJbQfVwMlOG mfRL9cJTHxV1fcxCQtVJVi CKCeJ2meWiGojB5ryMfwBD oyrgIsLEGbBd5iQZDwCz2v bWVkLlxwYXJ9 Gross assessment was . [place] performed at ([facility], Department = 2777) of Pathology, [address] [place] [address], Technical component was [facility]' performed at ([facility], = [facility]) Department of Pathology, [address] [place] [address], Professional component [facility] [place] [place] was performed at ([facility], Department code = 2779) of Pathology, [address] [place] [address], [facility] [id number] 10:21:00Surgical Pathology Report Case: [id number] Authorizing Provider: Tala Santacruz DPM Collected: 12/30/2019 01:38 PM Ordering Location: [address] Med/Surg Received: 12/31/2019 06:52 AM Pathologist: [...] TISSUE FORMATION Signing Pathologist Direct Phone Line: [phone] signed by Jovita Griffith MD on 01/04/2020 at 10:21 AMMG/[id number] [id number] of left 5th metatarsal, ulcer of bilateral [...] and into decal solution. MG/Veronica-B. Performed.[facility], Department of Pathology, [address] [place] [address], Mctmrd [facility], Department of Pathology, [address] [place] [address], [facility], Department of Pathology, [address] [place] [address], CPLJHYZKN [id number] 10:47:00 Test Item Value Reference Interpretation Comments [...] negative Staphylococcus SURGICALLY OBTAINED CULTURE + GRAM [id number] 08:31:00 Test Item Value Reference Range Interpretation Comments CULTURE (BEAKER) (test code No growth = 1095) GRAM STAIN RESULT (BEAKER) <1+ WBCs (test code = 1123) GRAM STAIN RESULT (BEAKER) No organisms seen (test code = 39721) SURGICALLY OBTAINED CULTURE + GRAM [id number] 08:19:00 Test Item Value Reference Interpretation Comments Range CULTURE (BEAKER) STENOTROPHOMONAS A 2+ Sten otrophomonas (test code = 1095) MALTOPHILIA maltophil ia Levofloxacin (test S code = 22) Trimethoprim + S Sulfamethoxazole (test code = 47) GRAM STAIN RESULT <1+ WBCs (BEAKER) (test code = 1123) GRAM STAIN RESULT No organisms seen (BEAKER) (test code = 542885) POC-Glucose [id number] 06:47:00 Test Item Value Reference Range Interpretation Comments POC-Glucose Meter (test 102 mg/dL 70-110 : TE STED AT [facility] code = 1538) [address] [place] [address]: Public Policy Professor/Techni artemio ID = [id number] for Brown, Anne Lab Interpretation (test Normal code = 45035-2) [facility] [id number] 06:47:00 Test Item Value Reference Range Interpretation Comments POC-Glucose Meter (test 102 mg/dL 70-110 : TE STED AT [facility] code = 1538) [address] [place], [place] [address]: Public Policy Professor/Techni artemio ID = [id number] for Brown, Anne Lab Interpretation (test Normal code = 16429-5) [facility]-GLUCOSE [id number] 06:47:00 Test Item Value Reference Range Interpretation Comments POC-GLUCOSE METER 102 mg/dL 70-110 : TESTED A T [facility] 1317 (BEAKER) (test code [address], = 1538) [facility] [address]: Public Policy Professor/Techni artemio ID = [id number] for Anne Busby Comprehensive metabolic [id number] 06:34:00 Test Item Value Reference Range Interpretation Comments Protein, Total (test 6.1 See_Comment [Autom ated code = 2885-2) message] The system which generated this result transmit merna reference range : 6.0 - 8.5 gm/dL . The reference range was not u sed to interpret th is result as normal/abnormal . Albumin (test code = 2.3 g/dL 3.5-5 L 49712-1) Alkaline Phosphatase 81 U/L 30-115 (test code = 6768-6) Total Bilirubin (test 0.4 mg/dL 0.1-1.2 code = 1975-2) Sodium (test code = 137 meq/L 202-545 5919-2) Potassium (test code 3.7 meq/L 3.6-5.5 = 2823-3) Chloride (test code = 100 meq/L 98-106 2075-0) CO2 (test code = 28 meq/L 20-29 2028-9) BUN (test code = 14 mg/dL 10-26 3094-0) Creatinine (test code 2.31 mg/dL 0.5-1.2 H = 2160-0) Glucose (test code = 100 mg/dL 70-110 2345-7) Calcium (test code = 7.5 mg/dL 8.5-10.5 L 43492-5) AST (test code = 15 U/L 5-40 1920-8) ALT (test code = 6 U/L 5-50 1742-6) EGFR (test code = 21 mL/min/1.73 sq m [facility] [place] [address]-1) NOT ACCURATE CREATININE CLEARANCE IN PREDICTING GLOMERULAR FILTRATION RATE . ESTIMATED GFR I S NOT APPLICABLE FOR DIALYSIS PATIEN ZIA (test code = ZIA) Public Policy Professor ID - ADMIN Lab Interpretation Abnormal (test code = 83961-3) [facility] Center[facility] [id number] 06:34:00 Test Item Value Reference Range Interpretation Comments Protein, Total (test 6.1 See_Comment [Autom ated code = 2885-2) message] The system which generated this result transmit merna reference range : 6.0 - 8.5 gm/dL . The reference range was not u sed to interpret th is result as normal/abnormal . Albumin (test code = 2.3 g/dL 3.5-5 L 55746-2) Alkaline Phosphatase 81 U/L 30-115 (test code = 6768-6) Total Bilirubin (test 0.4 mg/dL 0.1-1.2 code = 1974-2) Sodium (test code = 137 meq/L 763-163 6625-2) Potassium (test code 3.7 meq/L 3.6-5.5 = 2823-3) Chloride (test code = 100 meq/L 98-106 2075-0) CO2 (test code = 28 meq/L 20-29 2028-9) BUN (test code = 14 mg/dL 10-26 3094-0) Creatinine (test code 2.31 mg/dL 0.5-1.2 H = 2160-0) Glucose (test code = 100 mg/dL 70-110 2345-7) Calcium (test code = 7.5 mg/dL 8.5-10.5 L 32877-3) AST (test code = 15 U/L 5-40 1920-8) ALT (test code = 6 U/L 5-50 1742-6) EGFR (test code = 21 mL/min/1.73 [place] [address]-2) NOT ACCURATE CREATININE CLEARANCE IN PREDICTING GLOMERULAR FILTRATION RATE . ESTIMATED GFR I S NOT APPLICABLE FOR DIALYSIS PATIEN ZIA (test code = ZIA) Public Policy Professor ID - ADMIN Lab Interpretation Abnormal (test code = 79907-1) [facility] Center[facility]PRE[facility]IVE METABOLIC [id number] 06:34:00 Test Item Value Reference Range Interpretation [...] S NOT APPLICABLE FOR DIALYSIS PATIEN TS. Public Policy Professor ID - ADMINCBC with platelet count + automated [id number] 06:06:00 Test Item Value Reference Range Interpretation Comments WBC (test code = 6690-2) 5.7 See_Comment [A utomated message] The system [employer] generated this result transmitted ref erence range: 4.0 - 10 .0 K/L. The refe rence range was not u sed to interpret this result as normal/abnor mal. RBC (test code = 789-8) 2.41 See_Comment L [Au tomated message] The system [employer] generated this result transmitted ref erence range: 4.00 - 5 .00 M/L. The refe rence range was not u sed to interpret this result as normal/abnor mal. MCHC (test code = 786-4) 30.8 See_Comment L [A utomated message] The system [employer] generated this result transmitted ref erence range: [...] L [Aut omated message] 777-3) The system [employer] generated this result transmitted ref erence range: 150 - 43 0 K/CU MM. The referen ce range was not u sed to interpret this result as normal/abnor mal. MPV (test code = 10.5 fL 6-11.5 53002-1) nRBC (test code = 413) 0 See_Comment [Aut omated message] The system [employer] generated this result transmitted ref erence range: [...] See_Comment [Aut omated message] 670) The system [employer] generated this result transmitted ref erence range: 1.80 - 8 .00 K/L. The refe rence range was not u sed to interpret this result as normal/abnor mal. # Lymphs (test code = 1.66 See_Comment [Auto mated message] 414) The system [employer] generated this result transmitted ref erence range: 1.48 - 4 .50 K/L. The refe rence range was not u sed to interpret this result as normal/abnor mal. # Monos (test code = 0.28 See_Comment [Autom ated message] 415) The system [employer] generated this result transmitted ref erence range: 0.00 - 1 .30 K/L. The refe rence range was not u sed to interpret this result as normal/abnor mal. # Eos (test code = 416) 0.12 See_Comment [Au tomated message] The system [employer] generated this result transmitted ref erence range: 0.00 - 0 .50 K/L. The refe rence range was not u sed to interpret this result as normal/abnor mal. # Baso (test code = 417) 0.07 See_Comment [A utomated message] The system [employer] generated this result transmitted ref erence range: 0.00 - 0 .20 K/L. The refe rence range was not u sed to interpret this result as normal/abnor mal. Immature 0 % 0-0 Granulocytes-Relative (test code = 2801) Lab Interpretation (test Abnormal code = 33203-0) [facility] with platelet count + automated [id number] 06:06:00 Test Item Value Reference Range Interpretation Comments WBC (test code = 6690-2) 5.7 See_Comment [A utomated message] The system [employer] generated this result transmitted ref erence range: 4.0 - 10 .0 K/L. The refe rence range was not u sed to interpret this result as normal/abnor mal. RBC (test code = 789-8) 2.41 See_Comment L [Au tomated message] The system [employer] generated this result transmitted ref erence range: 4.00 - 5 .00 M/L. The refe rence range was not u sed to interpret this result as normal/abnor mal. MCHC (test code = 786-4) 30.8 See_Comment L [A utomated message] The system [employer] generated this result transmitted ref erence range: [...] = 84 See_Comment L [Aut omated message] 237-3) The system [employer] generated this result transmitted ref erence range: 150 - 43 0 K/CU MM. The referen ce range was not u sed to interpret this result as normal/abnor mal. MPV (test code = 10.5 fL 6-11.5 24616-8) nRBC (test code = 413) 0 See_Comment [Aut omated message] The system [employer] generated this result transmitted ref erence range: [...] See_Comment [Aut omated message] 670) The system [employer] generated this result transmitted ref erence range: 1.80 - 8 .00 K/L. The refe rence range was not u sed to interpret this result as normal/abnor mal. # Lymphs (test code = 1.66 See_Comment [Auto mated message] 414) The system [employer] generated this result transmitted ref erence range: 1.48 - 4 .50 K/L. The refe rence range was not u sed to interpret this result as normal/abnor mal. # Monos (test code = 0.28 See_Comment [Autom ated message] 415) The system [employer] generated this result transmitted ref erence range: 0.00 - 1 .30 K/L. The refe rence range was not u sed to interpret this result as normal/abnor mal. # Eos (test code = 416) 0.12 See_Comment [Au tomated message] The system [employer] generated this result transmitted ref erence range: 0.00 - 0 .50 K/L. The refe rence range was not u sed to interpret this result as normal/abnor mal. # Baso (test code = 417) 0.07 See_Comment [A utomated message] The system [employer] generated this result transmitted ref erence range: 0.00 - 0 .20 K/L. The refe rence range was not u sed to interpret this result as normal/abnor mal. Immature 0 % 0-0 Granulocytes-Relative (test code = 2801) Lab Interpretation (test Abnormal code = 35735-5) [facility] W/PLT COUNT & AUTO [id number] 06:06:00 Test Item Value Reference Range Interpretation [...] PERCENT (BEAKER) (test code = 2801) POCT-GLUCOSE [id number] 21:02:00 Test Item Value Reference Range Interpretation Comments POC-GLUCOSE METER 167 mg/dL 70-110 H : TESTED A T [facility] 1317 (BEAKER) (test code [facility] = [facility]) [place] [address]: Public Policy Professor/Techni artemio ID = [id number] for Anne Busby POCT-GLUCOSE [id number] 18:12:00 Test Item Value Reference Range Interpretation Comments POC-GLUCOSE METER 121 mg/dL 70-110 H : TESTED A T [facility] [address]17 (BEAKER) (test code [facility] = 1538) [place] [address]: Public Policy Professor/Techni artemio ID = [id number] for Cortney Cohen POCT-GLUCOSE [id number] 11:54:00 Test Item Value Reference Range Interpretation Comments POC-GLUCOSE METER 117 mg/dL 70-110 H : TESTED A T [facility] [address] (BEAKER) ([facility] [address], = 15[address]) [place] [address]: Public Policy Professor/Techni artemio ID = [id number] for Yasemin Cohenr COMPREHENSIVE METABOLIC [id number] 06:47:00 Test Item Value Reference Range Interpretation [...] S NOT APPLICABLE FOR DIALYSIS PATIEN TS. Public Policy Professor ID - [id number] 06:42:00 Test Item Value Reference Range Interpretation Comments Magnesium (test code = 1.6 mg/dL 1.5-3 11964-7) ZIA (test code = ZIA) Public Policy Professor ID - ADMIN Lab Interpretation (test Normal code = 01157-4) [facility] Center[facility]esium2020-10-02 06:42:00 Test Item Value Reference Range Interpretation Comments Magnesium (test code = 1.6 mg/dL 1.5-3 93357-9) ZIA (test code = ZIA) Public Policy Professor ID - ADMIN Lab Interpretation (test Normal code = 52401-7) [facility] CenterPOCT[facility]GLUCOSE [id number] 06:42:00 Test Item Value Reference Range Interpretation Comments POC-GLUCOSE METER 101 mg/dL 70-110 : TESTED A T [facility] [address] (BEAKER) (test code [address], = 1538) [facility] [place] [address]: Public Policy Professor/Techni artemio ID = [id number] for Anne Busby [id number] 06:42:00 Test Item Value Reference Range Interpretation Comments MAGNESIUM (BEAKER) (test code = 1.6 mg/dL 1.5-3.0 627) Public Policy Professor ID - ADMINCBC W/PLT COUNT & AUTO [id number] 06:37:00 Test Item Value Reference Range Interpretation [...] PERCENT (BEAKER) (test code = 2801) POCT-GLUCOSE [id number] 20:24:00 Test Item Value Reference Range Interpretation Comments POC-GLUCOSE METER 155 mg/dL 70-110 H : TESTED A T [facility] 1317 (BEAKER) (test code [address], = 1538) [facility] [address]: Public Policy Professor/Techni artemio ID = [id number] for Anne Busby POCT-GLUCOSE [id number] 16:39:00 Test Item Value Reference Range Interpretation Comments POC-GLUCOSE METER 164 mg/dL 70-110 H : Notified RN/MD: TESTED (BEAKER) (test code AT [facility] [address] = 1538) [facility], [facility] [address]: Public Policy Professor/Techni artemio ID = [id number] for Alondra Kelley SARS-CoV2/RT-PCR (Asymptomatic ONLY)2019-12-30 15:57:00 Test Item Value Reference Range Interpretation Comments SARS-COV2/RT-PCR Negative Not Detected, (test code = Negative, See 57459-9) external report for linked test SARS-COV-2 [facility] JANET PERFORMING LAB (test code = 54432-4) ZIA (test code = Negative result for [...] of the Act. Fact Sheet for Healthcare Providers:https://www.[employer]/sites/default/f loco/product/documents/F act_Sheet_HC_Providers_L wrb_AWVS-HzH-8.pdf Fact Sheet for Healthcare Patients:https://www.HAUL/sites/default/fi les/product/documents/Fa ct_Sheet_Patients_Lyra_S ARS-CoV-2.pdf Performing Laboratory:[facility] [place], [place] [address] [place], [place] [address]ARS-CoV2/RT-PCR (Asymptomatic ONLY)2019-12-30 15:57:00 Test Item Value Reference Range Interpretation Comments SARS-COV2/RT-PCR Negative Not Detected, (test code = Negative, See 73891-2) external report for linked test SARS-COV-2 [facility] JANET PERFORMING LAB (test code = 02855-4) ZIA (test code = Negative result for [...] of the Act. Fact Sheet for Healthcare Providers:https://www.[employer]/sites/default/f loco/product/documents/F act_Sheet_HC_Providers_L ruq_VWJN-LuN-9.pdf Fact Sheet for Healthcare Patients:https://www.HAUL/sites/default/fi les/product/documents/Fa ct_Sheet_Patients_Lyra_S ARS-CoV-2.pdf Performing Laboratory:[facility] [place], [place] [address]alexys Dunbar.[place], [place] [address] [place], [place] [address]ARS-COV2/RT-PCR ([facility])2019-12-30 15:57:00 Test Item Value Reference Range Interpretation Comments SARS-COV2/RT-PCR (test Negative Not Detected, Negative, code = 5254553) See external report for linked test SARS-COV-[address] [facility] JANET (test code = 6665817) Negative result for this test determines that [...] 564(g) of the Act.Fact Sheet for Healthcare Providers:https://www.[employer]bel/sites/default/files/product/documents/Fact_Shee w_AY_Catlfjgup_Vwsm_IHYO-EaJ-6.pdfFact Sheet for Healthcare Patients:https://www.[employer]/sites/default/files/product/ documents/Wyoz_Tshwz_Qjhikemx_Xjal_XOOD-QhW-8.pdfPerforming Laboratory:[facility] [place], [place] [address]alexys Tirado.[place], [place] [address]NYDA-FQIQWIK METER 2019-12-30 11:50:00 Test Item Value Reference Range Interpretation Comments POC-GLUCOSE METER 82 mg/dL 70-110 : Notified RN/MD: TESTED ([facility]) (test code = AT [facility] [address]) [facility] [address]: Public Policy Professor/Techni artemio ID = [id number] for Alondra Kelley WOUND CULTURE + GRAM [id number] 10:45:00 Test Item Value Reference Interpretation Comments Range CULTURE ([facility]) STENOTROPHOMONAS A 1+ Sten otrophomonas (test code = 1095) MALTOPHILIA maltophil ia Levofloxacin (test S code = 22) Trimethoprim + S Sulfamethoxazole (test code = 47) CULTURE (BEAKER) A 1+ Kary (test code = 1095) parapsilo sis GRAM STAIN RESULT <1+ WBCs (BEAKER) (test code = 1123) GRAM STAIN RESULT <1+ gram negative (BEAKER) (test code rods = 427894) POCT-GLUCOSE [id number] 05:50:00 Test Item Value Reference Range Interpretation Comments POC-GLUCOSE METER 103 mg/dL 70-110 : Notified RN/MD: TESTED (BEAKER) (test code AT [facility] [address] = 1538) [place] [address]: Public Policy Professor/Techni artemio ID = [id number] for Zonia Healy COMPREHENSIVE METABOLIC [id number] 05:44:00 Test Item Value Reference Range Interpretation [...] S NOT APPLICABLE FOR DIALYSIS PATIEN TS. Public Policy Professor ID - ADMINCBC W/PLT COUNT & AUTO [id number] 05:29:00 Test Item Value Reference Range Interpretation [...] PERCENT (BEAKER) (test code = 2801) POCT-GLUCOSE [id number] 21:21:00 Test Item Value Reference Range Interpretation Comments POC-GLUCOSE METER 185 mg/dL 70-110 H : Notified RN/MD: TESTED (BEAKER) (test code AT [address] = 1538) [place] [address]: Public Policy Professor/Techni artemio ID = [id number] for Zonia Healy POCT-GLUCOSE [id number] 11:21:00 Test Item Value Reference Range Interpretation Comments POC-GLUCOSE METER 143 mg/dL 70-110 H : Notified RN/MD: TESTED (BEAKER) (test code AT [address] PO[address] = 1538) [place] [id number]: Public Policy Professor/Techni artemio ID = [id number] for Alondra Kelley COMPREHENSIVE METABOLIC [id number] 06:27:00 Test Item Value Reference Range Interpretation [...] S NOT APPLICABLE FOR DIALYSIS PATIEN TS. Public Policy Professor ID - ADMINPOCT-GLUCOSE [id number] 06:21:00 Test Item Value Reference Range Interpretation Comments POC-GLUCOSE METER 73 mg/dL 70-110 : Notified RN/MD: TESTED (BEAKER) (test code = AT [facility] [address]) [facility] [address]: Public Policy Professor/Techni artemio ID = [id number] for Zonia Healy CBC W/PLT COUNT & AUTO [id number] 06:00:00 Test Item Value Reference Range Interpretation [...] PERCENT (BEAKER) (test code = 2801) POCT-GLUCOSE [id number] 20:48:00 Test Item Value Reference Range Interpretation Comments POC-GLUCOSE METER 84 mg/dL 70-110 : Notified RN/MD: TESTED ([facility]) (test code = AT [facility] [address] [facility] 153) [facility] [address]: Public Policy Professor/Techni artemio ID = [id number] for Zonia Healy POCT-GLUCOSE [id number] 17:51:00 Test Item Value Reference Range Interpretation Comments POC-GLUCOSE METER 59 mg/dL 70-110 L : TESTED A T [facility] [address] (BEAKER) (test code = [address] [facility], 153) [facility] [address]: Public Policy Professor/Techni artemio ID = [id number] for Berta Servin POCT-GLUCOSE [id number] 13:28:00 Test Item Value Reference Range Interpretation Comments POC-GLUCOSE METER 67 mg/dL 70-110 L : TESTED A T [facility] [address] (BEAKER) (test code = [address], 1538) [facility] [address]: Public Policy Professor/Techni artemio ID = [id number] for Berta Servin POCT-GLUCOSE [id number] 06:04:00 Test Item Value Reference Range Interpretation Comments POC-GLUCOSE METER 94 mg/dL 70-110 : TESTED A T [facility] [address] (BEAKER) (test code = [address], 1538) [facility] 77 478: Public Policy Professor/Techni artemio ID = [id number] for Anahi Sherman COMPREHENSIVE METABOLIC [id number] 05:35:00 Test Item Value Reference Range Interpretation [...] S NOT APPLICABLE FOR DIALYSIS PATIEN TS. Public Policy Professor ID - ADMINCBC W/PLT COUNT & AUTO [id number] 04:56:00 Test Item Value Reference Range Interpretation [...] PERCENT (BEAKER) (test code = 2801) POCT-GLUCOSE [id number] 20:43:00 Test Item Value Reference Range Interpretation Comments POC-GLUCOSE METER 137 mg/dL 70-110 H : TESTED A T [facility] [address] (BEAKER) (test code [address], = 1538) [facility] 77 478: Public Policy Professor/Techni artemio ID = [id number] for Anahi Sherman MR, EXTREMITY, LOWER, WITHOUT CONTRAST, [id number] 16:55:00MRI LEFT FOOT.Unlisted Reason for Exam - [...] MDReport Verified Date/Time: 12/27/2019 16:55:07 Reading Location: [facility] Radiology Reading Room MR lower extremity without IV contrast left [id number] 16:55:00Interface, External Ris In - 12/27/2019 4:57 [...] Ring Verified Date/Time: 12/27/2019 16:55:07 Reading Location: [facility] Radiology Reading Room Electronically signed by: Adrienne CHU 12/27/2019 04:55 [facility] IV contrast left [id number] 16:55:00Interface, External Ris In - 12/27/2019 4:57 [...] Ring Verified Date/Time: 12/27/2019 16:55:07 Reading Location: [facility] Radiology Reading Room Electronically signed by: Adrienne CHU 12/27/2019 04:55 [facility] [id number] 14:19:00 Test Item Value Reference Range Interpretation Comments POC-GLUCOSE METER 232 mg/dL 70-110 H : TESTED A T [facility] 1317 (BEDANIELA) (test code [address], = 1538) [facility] 77 478: Public Policy Professor/Techni artemio ID = [id number] for Christina r, Berta CT, CTA AAA, W/ GÓMEZ.EXT.XZAJCR7286-03-93 11:38:00Bilateral lower extremities Addendum BeginsREPORT STATUS:A I agree with the nonvascular findings with exceptions and emphasis as below:*Moderate right and small left pleural effusions are partially visualized.*Large volume ascites.*Diffuse anasarca*The reflux of contrast into the hepatic veins is concerning for volume overload. Signed: Molly Linares MDReport Verified Date/Time: 12/27/2019 11:38:28 Reading Location: [facility] Diagnostic Imaging Reading Room - [place] [address] [address] angiography of the abdominal aorta and runoff, 26-Dec-19 INDICATION: This is a 64 year old female with with lower leg penetrating trauma presents for assessment. TECHNIQUE: Spiral acquisition before and during intravenous contrast administration using a [employer] multidetector CT scanner. Images were obtained before [...] identified. However, significant calcification identified of the wainwright left SFA, for example at image 516, [...] the right popliteal artery is patent, with fhze-xq-htjarffh diffuse calcification identified with no obstructive lesion [...] However, in the distal left SFA, the wainwright artery substantial calcification identified and the stent [...] atherosclerosis identified. 4. In the right, the wainwright right SFA is not filled by contrast [...] dictated regarding the non-vascular findings by the Telephone Lines Repairer Radiologist. Signed: Shlomo Dockery MDRepchildren[facility] Verified Date/Time: 12/27/2019 07:59:51 Reading Location: [place] [address] [address] Reading Room Protein electrophoresis, serum 2019-12-27 [...] as normal/abnormal . ZIA (test code = Public Policy Professor ID - ZIA) LEONIE Jay Lab Interpretation Abnormal (test code = 88518-7) [facility], [id number] 09:29:00 Test Item Value Reference Range Interpretation [...] as normal/abnormal . ZIA (test code = Public Policy Professor ID - ZIA) LEONIE F Lab Interpretation Abnormal (test code = 08333-1) [facility] CenterPROTEIN ELECTROPHORESIS, [id number] 09:29:00 Test Item Value Reference Range Interpretation [...] chronic inflammatory response. No monoclonal bands detected. [id number] Rocio Galindo MD (BEAKER) (test code = (electronic signature) 2616) PROTEIN TOTAL SERUM, 6.3 gm/dL 6.0-8.3 SPEP (BEAKER) (test code = 2660) Public Policy Professor ID - CAROLINA FCTA AAA and [id number] 07:59:00Interface, External Ris In - 12/27/2019 11:40 AM CDTAddendum BeginsREPORT STATUS:A I agree with the nonvascular findings with exceptions and emphasis as below:*Moderate right andsmall left pleural effusions are partially visualized.*Large volume ascites.*Diffuse anasarca*The reflux of contrast into the hepatic veins is concerning for volume overload. Signed: Molly Linares MDReport Verified Date/Time: 12/27/2019 11:38:28 Reading Location: [facility] Diagnostic Imaging Reading Room - [address] RE[address] CT angiography of the [...] identified. However, significant calcification identified of the wainwright left SFA, for example at image 516, [...] the right popliteal artery is patent, with bzvg-gx-xhmiddxk diffuse calcification identified with no obstructive lesion [...] However, in the distal left SFA, the wainwright artery substantial calcification identified and the stent [...] atherosclerosis identified. 4. In the right, the wainwright right SFA is not filled by contrast [...] dictated regarding the non-vascular findings by the Telephone Lines Repairer Radiologist. Signed: Shlomo Dockery Verified Date/Time: 12/27/2019 07:59:51 Reading Location: [place] [address] [address] Reading Room [facility] CaliforniaCT[facility] AAA and [id number] 07:59:00Interface, External Ris In - 12/27/2019 11:40 AM CDTAddendum BeginsREPORT STATUS:A I agree with the nonvascular findings with exceptions and emphasis as below:*Moderate right andsmall left pleural effusions are partially visualized.*Large volume ascites.*Diffuse anasarca*The reflux of contrast into the hepatic veins is concerning for volume overload. Signed: Molly Linares MDReport Verified Date/Time: 12/27/2019 11:38:28 Reading Location: [facility] Diagnostic Imaging Reading Room - [place] [address] [address] angiography of the abdominal aorta and runoff, 26-Dec-19 INDICATION: This is a 64 year old female with with lower leg penetrating trauma presents for assessment. TECHNIQUE: Spiral acquisition before and during intravenous contrast administration using a [employer] multidetector CT scanner. Images were obtained before [...] identified. However, significant calcification identified of the wainwright left SFA, for example at image 516, [...] the right popliteal artery is patent, with wxgr-ut-mqvhqagd diffuse calcification identified with no obstructive lesion [...] However, in the distal left SFA, the wainwright artery substantial calcification identified and the stent [...] atherosclerosis identified. 4. In the right, the wainwright right SFA is not filled by contrast [...] dictated regarding the non-vascular findings by the Telephone Lines Repairer Radiologist. Signed: Shlomo Dockery MDReport Verified Date/Time: 12/27/2019 07:59:51 Reading Location: [place] [address] [address] Reading Room [facility] CaliforniaPOCT-GLUCOSE [id number] 06:56:00 Test Item Value Reference Range Interpretation Comments POC-GLUCOSE METER 39 mg/dL 70-110 LL : Notified RN/: TESTED (BEAKER) (test code = AT [facility] L [address]) [facility] [address]: Public Policy Professor/Techni artemio ID = [id number] for Anahi Sherman COMPREHENSIVE METABOLIC [id number] 06:15:00 Test Item Value Reference Range Interpretation [...] S NOT APPLICABLE FOR DIALYSIS PATIEN TS. Public Policy Professor ID - ADMINPOCT-GLUCOSE [id number] 06:01:00 Test Item Value Reference Range Interpretation Comments POC-GLUCOSE METER 55 mg/dL 70-110 L : Notified RN/MD: TESTED (BEAKER) (test code = AT [facility] [address]) [facility] [address]: Public Policy Professor/Techni artemio ID = [id number] for Anahi Sherman CBC W/PLT COUNT & AUTO [id number] 05:44:00 Test Item Value Reference Range Interpretation [...] PERCENT (BEAKER) (test code = 2801) POCT-GLUCOSE [id number] 21:03:00 Test Item Value Reference Range Interpretation Comments POC-GLUCOSE METER 278 mg/dL 70-110 H : Notified RN/MD: TESTED ([facility]) (test code AT [facility] [address] [place] [address] = 1538) [facility] [address]: Public Policy Professor/Techni artemio ID = [id number] for Anahi Sherman POCT-GLUCOSE [id number] 16:53:00 Test Item Value Reference Range Interpretation Comments POC-GLUCOSE METER 70 mg/dL 70-110 : TESTED A T [facility] [address] (BEAKER) (test code = [address], 1538) [place] [address]: Public Policy Professor/Techni artemio ID = [id number] for Nalini Jean Baptiste POCT-GLUCOSE [id number] 12:11:00 Test Item Value Reference Range Interpretation Comments POC-GLUCOSE METER 97 mg/dL 70-110 : TESTED A T [facility] [address] (BEAKER) (test code = [address], 1538) [place] [address]: Public Policy Professor/Techni artemio ID = [id number] for Nalini Jean Baptiste POCT-GLUCOSE [id number] 06:21:00 Test Item Value Reference Range Interpretation Comments POC-GLUCOSE METER 71 mg/dL 70-110 : TESTED A T [facility] [address] (BEAKER) (test code = [address], 1538) [place] [address]: Public Policy Professor/Techni artemio ID = [id number] for Nwjanis iufu, Holly COMPREHENSIVE METABOLIC [id number] 05:50:00 Test Item Value Reference Range Interpretation [...] S NOT APPLICABLE FOR DIALYSIS PATIEN TS. Public Policy Professor ID - ADMINCBC W/PLT COUNT & AUTO [id number] 05:17:00 Test Item Value Reference Range Interpretation [...] (BEAKER) (test code = 2801) Prepare Leuko-Red [id number] 23:54:00 Test Item Value Reference Range Interpretation Comments CROSSMATCH (test code = 2264) COMPATIBLE Unit ABO (test code = O Pos 4342234) UNIT NUMBER (test code = [id number] 934-0) Status (test code = 7562883) [facility] Product (test code RED BLOOD CELLS = 2263) PRODUCT CODE (test code = C1831Y00 933-2) [facility] CenterPrepare Leuko-Red [id number] 23:54:00 Test Item Value Reference Range Interpretation Comments CROSSMATCH (test code = 2264) COMPATIBLE Unit ABO (test code = O Pos 9494283) UNIT NUMBER (test code = [id number] 934-0) Status (test code = 6914487) [facility] Blood Bank Product (test code RED BLOOD CELLS = 2263) PRODUCT CODE (test code = J7968T68 933-2) [facility] CenterPOCT-GLUCOSE [id number] 21:03:00 Test Item Value Reference Range Interpretation Comments POC-GLUCOSE METER 87 mg/dL 70-110 : TESTED A T [facility] [address] (BEAKER) (test code = [address], 1538) [facility] [place] 77 478: Public Policy Professor/Techni artemio ID = [id number] for Nwad iufu, Holly POCT-GLUCOSE [id number] 17:12:00 Test Item Value Reference Range Interpretation Comments POC-GLUCOSE METER 79 mg/dL 70-110 : TESTED A T [facility] [address] (BEAKER) (test code = [address], 1538) [facility] 77 478: Public Policy Professor/Techni artemio ID = [id number] for Nalini Jean Baptiste POCT-GLUCOSE [id number] 11:37:00 Test Item Value Reference Range Interpretation Comments POC-GLUCOSE METER 262 mg/dL 70-110 H : TESTED A T [facility] [address] (BEAKER) (test code [address], = 1538) [place] [address] 478: Public Policy Professor/Techni artemio ID = [id number] for Nalini Jean Baptiste COMPREHENSIVE METABOLIC [id number] 06:29:00 Test Item Value Reference Range Interpretation [...] S NOT APPLICABLE FOR DIALYSIS PATIEN TS. Public Policy Professor ID - ADMINCBC W/PLT COUNT & AUTO [id number] 06:12:00 Test Item Value Reference Range Interpretation [...] PERCENT (BEAKER) (test code = 2801) POCT-GLUCOSE [id number] 06:09:00 Test Item Value Reference Range Interpretation Comments POC-GLUCOSE METER 83 mg/dL 70-110 : Notified RN/MD: TESTED (BEAKER) (test code = AT SLS [address]) [place] [address]368: Public Policy Professor/Techni artemio ID = [id number] for Anahi Sherman POCT-GLUCOSE [id number] 16:26:00 Test Item Value Reference Range Interpretation Comments POC-GLUCOSE METER 182 mg/dL 70-110 H : Notified RN/MD: TESTED (BEAKER) (test [facility] AT [facility] [address] = 1538) [place] [address]: Public Policy Professor/Techni artemio ID = [id number] for Alondra Kelley, [id number] 09:17:00 Test Item Value Reference Range Interpretation Comments Rh Factor (test code = POS 2589) ABO Grouping (test code O PINK TOP 12/24/19 @ 0824 = 2588) [facility] CenterABORH, [id number] 09:17:00 Test Item Value Reference Range Interpretation Comments Rh Factor (test code = POS 2589) ABO Grouping (test code O PINK TOP 12/24/19 @ 0824 = 2588) [facility] CenterType and screen, [id number] 07:31:00 Test Item Value Reference Range Interpretation Comments ABO/RH AUTOMATED (BEAKER) (test O POSITIVE ECHO code = 2260) Ab Scrn (test code = 890-4) NEGATIVE ECHO [facility] CenterType and screen, [id number] 07:31:00 Test Item Value Reference Range Interpretation Comments ABO/RH AUTOMATED (BEAKER) (test O POSITIVE ECHO code = 2260) Ab Scrn (test code = 890-4) NEGATIVE ECHO [facility] CenterCOMPREHENSIVE METABOLIC [id number] 06:42:00 Test Item Value Reference Range Interpretation [...] S NOT APPLICABLE FOR DIALYSIS PATIEN TS. Public Policy Professor ID - ADMINPOCT-GLUCOSE [id number] 06:23:00 Test Item Value Reference Range Interpretation Comments POC-GLUCOSE METER 88 mg/dL 70-110 : TESTED A T [facility] [address] (BEAKER) (test code = [address], 1538) [facility] 77 [address]: Public Policy Professor/Techni artemio ID = [id number] for Anne Busby CBC W/PLT COUNT & AUTO [id number] 06:23:00 Test Item Value Reference Range Interpretation [...] PERCENT (BEAKER) (test code = 2801) POCT-GLUCOSE [id number] 21:38:00 Test Item Value Reference Range Interpretation Comments POC-GLUCOSE METER 126 mg/dL 70-110 H : TESTED A T [facility] [address] (BEAKER) (test code [address], = 1538) [facility] 77 478: Public Policy Professor/Techni artemio ID = [id number] for Anne Busby POCT-GLUCOSE [id number] 16:54:00 Test Item Value Reference Range Interpretation Comments POC-GLUCOSE METER 89 mg/dL 70-110 : Notified RN/MD: TESTED (BEDANIELA) (test code = AT SLS [address]) PKWLedy, [facility] [address]: Public Policy Professor/Techni artemio ID = [id number] for Alondra Kelley MR, EXTREMITY, LOWER, JOINT, WITHOUT CONTRAST, [id number] 16:10:00Unlisted Reason for Exam - Click Yes [...] Jordanort Verified Date/Time: 12/23/2019 16:10:32 Reading Location: [facility] B1 C013X Ortho Consult Reading Room MR lower extremity joint only without IV contrast left [id number] 16:10:00Interface, External Ris In - 12/23/2019 4:12 [...] Jordaneport Verified Date/Time: 12/23/2019 16:10:32 Reading Location: [facility] C013X Ortho Consult Reading [facility] joint only without IV [...] Jordan Verified Date/Time: 12/23/2019 16:10:32 Reading Location: [address] Ortho Consult Reading Room [facility]MR, BRAIN, WITHOUT [id number] 15:43:00Unlisted Reason for Exam - Click Yes [...] Date/Time: 12/23/2019 15:43:24 MR brain without IV [id number] 15:43:00Interface, External Ris In - 12/23/2019 3:45 [...] Signed: Berta Muniz Verified Date/Time: 12/23/2019 15:43:24 [facility]MR [facility] without IV [id number] 15:43:00Interface, External Ris In - 12/23/2019 3:45 [...] Signed: Berta Muniz Verified Date/Time: 12/23/2019 15:43:24 [facility]) 2019-12-23 14:16:00 Test Item Value Reference Range Interpretation Comments SARS-COV2/RT-PCR (test Negative Not Detected, Negative, code = 3592920) See external report for linked test SARS-COV-[address] [facility] JANET (test code = 8610484) Negative result for this test determines that [...] 564(g) of the Act.Fact Sheet for Healthcare Providers:https://www.Lessonwriteridel.com/sites/default/files/product/documents/Fact_Shee i_UQ_Ydytiuaai_Bjaq_FMXZ-RpP-3.pdfFact Sheet for Healthcare Patients:https://www.Lessonwriteridel.com/sites/default/files/product/ documents/Wkon_Qsdqx_Xkvgcbir_Sjej_FISZ-KdC-1.pdfPerforming Laboratory:[facility], [place] [address]Nmama / lambda light chains, [id number] 12:25:00 Test Item Value Reference Interpretation Comments Range Macon Lt Chain,Free 474.4 mg/L 3.3-19.4 H (test code = 06857-7) Lambda Lt 225.6 mg/L 5.7-26.3 H Chain,Free (test code = 02985-7) [place]/Lambda,Free 2.1 0.26-1.65 H Free annaeblle a/lambda (test code = ratio in serum [...] (test code = Performing Lab ZIA) [facility] [employer] [facility] [address] [place] [id number] Jaguar Stein MD, PhD, CORI Lab Interpretation Abnormal (test code = 36090-1) [facility] CenterKappa / lambda light chains, [id number] 12:25:00 Test Item Value Reference Interpretation Comments Range Macon Lt Chain,Free 474.4 mg/L 3.3-19.4 H (test code = 07442-2) Lambda Lt 225.6 mg/L 5.7-26.3 H Chain,Free (test code = 55710-9) [place]/Lambda,Free 2.1 0.26-1.65 H Free annabelle a/lambda (test [...] (test code = Performing Lab ZIA) [facility] [address] [place] [address] Jaguar Stein MD, PhD, CORI Lab Interpretation Abnormal (test code = 59582-1) [facility] CenterPOCT-GLUCOSE [id number] 11:27:00 Test Item Value Reference Range Interpretation Comments POC-GLUCOSE METER 189 mg/dL 70-110 H : Notified RN/MD: TESTED (BEAKER) (test code AT [facility] [address] = 1538) [place] [facility] [address]: Public Policy Professor/Techni artemio ID = [id number] for Repa julio, Alondra ARTERIAL DOPPLER LEGS, [id number] 11:22:00Reason for exam:->non healing ulcer , non [...] MDReport Verified Date/Time: 12/23/2019 11:22:31 Reading Location: [facility] Radiology Reading Room Arterial Doppler Legs [id number] 11:22:00 Interface, External Ris In - 12/23/2019 [...] MDReport Verified Date/Time: 12/23/2019 11:22:31 Reading Location: [facility] Radiology Reading Room [facility] CaliforniaArterial Doppler Legs [id number] 11:22:00Interface, External Ris In - 12/23/2019 11:24 [...] MDReport Verified Date/Time: 12/23/2019 11:22:31 Reading Location: [facility] Radiology Reading Room [facility] CaliforniaCOMPREHENSIVE METABOLIC PANEL 2019-12-23 04:44:00 Test Item Value [...] S NOT APPLICABLE FOR DIALYSIS PATIEN TS. Public Policy Professor ID - ADMINCBC W/PLT COUNT & AUTO [id number] 04:35:00 Test Item Value Reference Range Interpretation [...] H PERCENT (BEAKER) (test code = 2801) [id number] 04:29:00 Test Item Value Reference Range Interpretation Comments Ammonia (test code = 36 See_Comment [Autom ated 43949-3) message] The system which generated this result transmit merna reference range : 17 - 80 mol/L . The reference range was not u sed to interpret th is result as normal/abnormal . ZIA (test code = ZIA) Public Policy Professor ID - ADMIN Lab Interpretation Normal (test code = 96940-1) [facility] CenterAmmonia2020-09-24 04:29:00 Test Item Value Reference Range Interpretation Comments Ammonia (test code = 36 See_Comment [Autom ated 39875-2) message] The system which generated this result transmit merna reference range : 17 - 80 mol/L . The reference range was not u sed to interpret th is result as normal/abnormal . ZIA (test code = ZIA) Public Policy Professor ID - ADMIN Lab Interpretation Normal (test code = 83108-6) [facility] CenterON[facility] 04:29:00 Test Item Value Reference Range Interpretation Comments AMMONIA (BEAKER) (test code = 348) 36 mol/L 17-80 Public Policy Professor ID - ADMINPOCT-GLUCOSE [id number] 20:45:00 Test Item Value Reference Range Interpretation Comments POC-GLUCOSE METER 95 mg/dL 70-110 : TESTED A T [facility] [address] (BEAKER) (test code = [address], 1538) [place] [address]: Public Policy Professor/Techni artemio ID = [id number] for Ashley austin Anne POCT-GLUCOSE [id number] 17:08:00 Test Item Value Reference Range Interpretation Comments POC-GLUCOSE METER 107 mg/dL 70-110 : TESTED A T [facility] [address] (BEAKER) (test code [address], = 1538) [place] [address]: Public Policy Professor/Techni artemio ID = [id number] for Jordyn Fonseca POCT-GLUCOSE [id number] 11:55:00 Test Item Value Reference Range Interpretation Comments POC-GLUCOSE METER 135 mg/dL 70-110 H : TESTED A T [facility] 1317 (BEAKER) (test code [address], = 1538) [place] [address]: Public Policy Professor/Techni artemio ID = [id number] for Jordyn Fonseca Anti-Nuclear Antibody (ROGER)2019-12-22 11:40:00 Test Item Value Reference Range Interpretation Comments ROGER (test code = 82409-9) Positive Negative A ZIA (test code = ZIA) Test performed by IFA method. Lab Interpretation (test Abnormal code = 37712-4) [facility] CenterANA Titer & [id number] 11:40:00 Test Item Value Reference Range Interpretation Comments ROGER Titer (test code = 97995-5) 1:40 ROGER Pattern (test code = 1781) Speckled [facility] CenterAnti-Nuclear Antibody ([facility])2019-12-22 11:40:00 Test Item Value Reference Range Interpretation Comments ROGER (test code = 37989-4) Positive Negative A ZIA (test code = ZIA) Test performed by IFA method. Lab Interpretation (test Abnormal code = 02106-9) [facility] CenterANA Titer & [id number] 11:40:00 Test Item Value Reference Range Interpretation Comments ROGER Titer (test code = 31776-4) 1:40 ROGER Pattern (test code = 1781) Speckled [facility] CenterANTI-NUCLEAR ANTIBODY (ROGER)2019-12-22 11:40:00 Test Item Value Reference Range Interpretation Comments ANTI-NUCLEAR ANTIBODY (ROGER) (BEAKER) Positive Negative A (test code = 418) Test performed by IFA method.[facility]OG[facility] TITER AND [id number] 11:40:00 Test Item Value Reference Range Interpretation Comments ROGER TITER (BEAKER) (test code = :40 1541) ROGER PATTERN (BEAKER) (test code = Speckled 1781) POCT-GLUCOSE [id number] 06:44:00 Test Item Value Reference Range Interpretation Comments POC-GLUCOSE METER 92 mg/dL 70-110 : TESTED A T [address] [address] (BEAKER) (test code = [address], 1538) [facility] [place] [address]: Public Policy Professor/Techni artemio ID = [id number] for Anne Busby COMPREHENSIVE METABOLIC [id number] 06:35:00 Test Item Value Reference Range Interpretation [...] S NOT APPLICABLE FOR DIALYSIS PATIEN TS. Public Policy Professor ID - ADMINCBC W/PLT COUNT & AUTO [id number] 06:16:00 Test Item Value Reference Range Interpretation [...] PERCENT (BEAKER) (test code = 2801) POCT-GLUCOSE [id number] 20:38:00 Test Item Value Reference Range Interpretation Comments POC-GLUCOSE METER 85 mg/dL 70-110 : TESTED A T [facility] [address] (BEAKER) (test code = [address], 1538) [place] [id number]: Public Policy Professor/Techni artmeio ID = [id number] for Anne Busby POCT-GLUCOSE [id number] 18:14:00 Test Item Value Reference Range Interpretation Comments POC-GLUCOSE METER 112 mg/dL 70-110 H : TESTED A T [facility] [address] (BEAKER) (test code [address], = 1538) [place] [id number]: Public Policy Professor/Techni artemio ID = [id number] for Christina r, Berta POCT-GLUCOSE [id number] 13:00:00 Test Item Value Reference Range Interpretation Comments POC-GLUCOSE METER 77 mg/dL 70-110 : TESTED A T [address] (BEAKER) (test code = [address], [address]) [place] [id number]: Public Policy Professor/Techni artemio ID = [id number] for Christina r, Berta POCT-GLUCOSE [id number] 07:32:00 Test Item Value Reference Range Interpretation Comments POC-GLUCOSE METER 60 mg/dL 70-110 L : TESTED A T [address] (BEAKER) (test code = [address], 1538) [place] [id number]: Public Policy Professor/Techni artemio ID = [id number] for Jackson Marissa rousseau COMPREHENSIVE METABOLIC [id number] 06:11:00 Test Item Value Reference Range Interpretation [...] S NOT APPLICABLE FOR DIALYSIS PATIEN TS. Public Policy Professor ID - ADMINC-Reactive [id number] 06:06:00 Test Item Value Reference Range Interpretation Comments CRP (test code = 676) 1.63 mg/dL 0-0.5 H ZIA (test code = ZIA) Public Policy Professor ID - ADMIN Lab Interpretation (test Abnormal code = 57704-0) [facility] [id number] 06:06:00 Test Item Value Reference Range Interpretation Comments CRP (test code = 676) 1.63 mg/dL 0-0.5 H ZIA (test code = ZIA) Public Policy Professor ID - ADMIN Lab Interpretation (test Abnormal code = 38385-3) [facility] [id number] 06:06:00 Test Item Value Reference Range Interpretation Comments C-REACTIVE PROTEIN (BEAKER) (test 1.63 mg/dL 0.00-0.50 H code = 676) Public Policy Professor ID - ADMINPOCT-GLUCOSE [id number] 06:04:00 Test Item Value Reference Range Interpretation Comments POC-GLUCOSE METER 56 mg/dL 70-110 L : Notified RN/MD: TESTED (BEAKER) (test code = AT [address]) [facility] [address]: Public Policy Professor/Techni artemio ID = [id number] for Nelda Abdi CBC W/PLT COUNT & AUTO [id number] 05:53:00 Test Item Value Reference Range Interpretation [...] (BEAKER) (test code = 2801) U/S, ABDOMINAL, [id number] 22:02:00Reason for exam:->thrombocytopenia / eval for hepatosplenomegalyFINAL [...] MDReport Verified Date/Time: 12/20/2019 22:02:21 US abdomen [id number] 22:02:00Interface, External Ris In - 12/20/2019 10:04 [...] Hever Marin MDReport Verified Date/Time: 12/20/2019 22:02:21 [facility] [id number] 22:02:00Interface, External Ris In - 12/20/2019 10:04 [...] Signed: Hever Marin MDReport Verified Date/Time:12/20/2019 22:02:21 [facility] [id number] 20:36:00 Test Item Value Reference Range Interpretation Comments POC-GLUCOSE METER 74 mg/dL 70-110 : Notified RN/MD: TESTED (BEAKER) (test code = [address]) [facility] [address]: Public Policy Professor/Techni artemio ID = [id number] for Nelda Abdi POCT-GLUCOSE [id number] 17:50:00 Test Item Value Reference Range Interpretation Comments POC-GLUCOSE METER 72 mg/dL 70-110 : TESTED A T [address] ([facility]) (test code = [address] [facility], 1538) [facility] 77 [address]: Public Policy Professor/Techni artemio ID = [id number] for Christina osborne Berta CT, BRAIN, WITHOUT [id number] 16:08:00Unlisted Reason for Exam - Click Yes [...] Date/Time: 12/20/2019 16:08:40 CT brain without IV [id number] 16:08:00Interface, External Ris In - 12/20/2019 4:10 [...] Signed: Berta Muniz Verified Date/Time: 12/20/2019 16:08:40 [facility] [id number] 16:08:00 Interface, External Ris In - 12/20/2019 [...] Signed: Berta Muniz Verified Date/Time: 12/20/2019 16:08:40 [facility], [facility], LEFT 2019-12-20 15:15:00Reason [...] Monahan Verified Date/Time: 12/20/2019 15:15:25 Reading Location: [facility] Radiology Reading Room , FOOT, 2 VIEWS, [id number] 15:15:00Reason for exam:->Rule out osteomyelitisShould this be [...] MDReport Verified Date/Time: 12/20/2019 15:15:25 Reading Location: [facility] Radiology Reading Room XR foot 2 views [id number] 15:15:00Interface, External Ris In - 12/20/2019 3:17 [...] MDReport Verified Date/Time: 12/20/2019 15:15:25 Reading Location: [facility] Radiology Reading Room [facility] views [id number] 15:15:00Interface, External Ris In - 12/20/2019 3:17 [...] MDReport Verified Date/Time: 12/20/2019 15:15:25 Reading Location: [facility] Radiology Reading [facility] [id number] 15:15:00Interface, External Ris In - 12/20/2019 3:17 [...] MDReport Verified Date/Time: 12/20/2019 15:15:25 Reading Location: [facility] Radiology Reading Room [facility] 2 views [id number] 15:15:00Interface, External Ris In - 12/20/2019 3:17 [...] MDReport Verified Date/Time: 12/20/2019 15:15:25 Reading Location: [facility] Radiology Reading Room [facility] [id number] 14:56:00 Test Item Value Reference Range Interpretation Comments AMMONIA (BEAKER) (test code = 348) 33 mol/L 17-80 Public Policy Professor ID - ADMINBlood gas, [id number] 14:41:00 Test Item Value Reference Range Interpretation Comments pH, Arterial (test code 7.33 7.35-7.45 L = 2744-1) pCO2, Arterial (test 58 See_Comment H [Autom ated message] code = 2019-8) The system [employer] generated this result transmit merna reference range : 35 - 45 mmHg. The reference range was not used to interpret this result as normal/abnormal . pO2, Arterial (test 109 See_Comment H [Automa merna message] code = 2703-7) The system [facility] generated this result transmit merna reference range [...] % Lab Interpretation Abnormal (test code = 48817-3) [facility] Center[facility], [id number] 14:41:00 Test Item Value Reference Range Interpretation Comments pH, Arterial (test code 7.33 7.35-7.45 L = 2744-1) pCO2, Arterial (test 58 See_Comment H [Autom ated message] code = 2019) The system [facility] generated this result transmit merna reference range : 35 - 45 mmHg. The reference range was not used to interpret this result as normal/abnormal . pO2, Arterial (test 109 See_Comment H [Automa merna message] code = 2703-7) The system [facility] generated this result transmit merna reference range [...] % Lab Interpretation Abnormal (test code = 40278-9) [facility] CenterBLOOD GAS, [id number] 14:41:00 Test Item Value Reference Range Interpretation [...] code = 1819) 32.0 % Occult blood, [id number] 11:56:00 Test Item Value Reference Range Interpretation Comments Occult blood (test code = 2335-8) Negative Negative Lab Interpretation (test code = Normal 94787-7) [facility] CenterOccult blood, [id number] 11:56:00 Test Item Value Reference Range Interpretation Comments Occult blood (test code = 2335-8) Negative Negative Lab Interpretation (test code = Normal 45093-6) [facility] CenterOCCULT BLOOD, [id number] 11:56:00 Test Item Value Reference Range Interpretation Comments FECAL OCCULT BLOOD (BEAKER) (test Negative Negative code = 618) POCT-GLUCOSE [id number] 11:39:00 Test Item Value Reference Range Interpretation Comments POC-GLUCOSE METER 88 mg/dL 70-110 : TESTED A T [address] (BEAKER) (test code = [address], 1538) [facility] [address]: Public Policy Professor/Techni artemio ID = [id number] for Eduarlamar riley Gifty [id number] 11:22:00 Test Item Value Reference Range Interpretation Comments Haptoglobin (test code = <8 14-258 L 4542-7) ZIA (test code = ZIA) Public Policy Professor ID - LEONIE Jay Lab Interpretation (test Abnormal code = 09953-4) [facility] CenterHaptoglobin2020-09-21 11:22:00 Test Item Value Reference Range Interpretation Comments Haptoglobin (test code = <8 14-258 L 4542-7) ZIA (test code = ZIA) Public Policy Professor ID - LEONIE F Lab Interpretation (test Abnormal code = 39938-8) [facility] CenterHAPTOGLOBIN2020-09-21 11:22:00 Test Item Value Reference Range Interpretation Comments HAPTOGLOBIN (BEAKER) (test code = < mg/dL 14-258 L 366) Public Policy Professor ID - CAROLINA FT4, [id number] 11:01:00 Test Item Value Reference Range Interpretation Comments Free T4 (test code = 0.52 ng/dL 0.9-1.8 L 3024-7) ZIA (test code = ZIA) Public Policy Professor ID - ADMIN Lab Interpretation (test Abnormal code = 48036-5) [facility] CenterT4, [id number] 11:01:00 Test Item Value Reference Range Interpretation Comments Free T4 (test code = 0.52 ng/dL 0.9-1.8 L 3024-7) ZIA (test code = ZIA) Public Policy Professor ID - ADMIN Lab Interpretation (test Abnormal code = 33597-1) [facility] CenterT4, [id number] 11:01:00 Test Item Value Reference Range Interpretation Comments FREE T4 (BEAKER) (test code = 655) 0.52 ng/dL 0.90-1.80 L Public Policy Professor ID - ADMINPeripheral Blood Smear - Path [id number] 08:19:00 Test Item Value Reference Range Interpretation [...] Griffith M.D. code = 2849) (electronic signature) [facility] CenterPeripheral Blood Smear - Path [id number] 08:19:00 Test Item Value Reference Range Interpretation [...] Griffith M.D. code = 2849) (electronic signature) [facility] CenterPERIPHERAL BLOOD SMEAR - PATHOLOGIST REVIEW 2019-12-20 08:19:00 Test Item Value Reference Range Interpretation Comments RBC MORPHOLOGY Target Cells (BEAKER) (test code = 2846) RBC MORPHOLOGY Basophilic Stippling (BEAKER) (test code = 37796) RBC MORPHOLOGY Nucleated Red Blood Cells (BEAKER) (test code = 18310) PERIPHERAL SMR Normochromic normocytic REVIEW (BEAKER) anemia with a few target (test code = 2640) cells, nucleated RBCs and basophilic stippling. No increase in schistocytes. WBCs normal in number and morphology. Thrombocytopenia with normal platelet morphology. [id number] Jovita Griffith M.D. 2 (BEAKER) (test (electronic signature) code = 2849) Vitamin B12 and [id number] 06:37:00 Test Item Value Reference Range Interpretation Comments Vitamin B12 (test 1431 pg/mL 211-911 H code = 2132-9) Folate (test code = 17.00 ng/mL See_Comment [Automa merna 2284-8) message] The system which generated this result transmit merna reference range : >=5.4. The reference range was not used to interpret this result as normal/abnormal . ZIA (test code = ZIA) Public Policy Professor ID - ADMIN Lab Interpretation Abnormal (test code = 98784-8) [facility] CenterVitamin B12 and Oxasln3519-11-37 06:37:00 Test Item Value Reference Range Interpretation Comments Vitamin B12 (test 1431 pg/mL 211-911 H code = 2132-9) Folate (test code = 17.00 ng/mL See_Comment [Automa merna 2284-8) message] The system which generated this result transmit merna reference range : >=5.4. The reference range was not used to interpret this result as normal/abnormal . ZIA (test code = ZIA) Public Policy Professor ID - ADMIN Lab Interpretation Abnormal (test code = 03286-8) [facility] CenterVITAMIN B12 AND [id number] 06:37:00 Test Item Value Reference Range Interpretation Comments VITAMIN B12 (BEAKER) (test code = 1431 pg/mL 211-911 H 774) FOLATE (BEAKER) (test code = 362) 17.00 ng/mL >=5.4 Public Policy Professor ID - ADMINPOCT-GLUCOSE [id number] 06:32:00 Test Item Value Reference Range Interpretation Comments POC-GLUCOSE METER 79 mg/dL 70-110 : TESTED A T [address] (BEAKER) (test code = [address], 1538) [facility] [address]: Public Policy Professor/Techni artemio ID = [id number] for Anahi Sherman Spzjsmwh8428-69-85 06:25:00 Test Item Value Reference Range Interpretation Comments Ferritin (test code = 595.00 ng/mL 10-291 H 2276-4) ZIA (test code = ZIA) Public Policy Professor ID - ADMIN Lab Interpretation (test Abnormal code = 74079-0) [facility] CenterTS/Free T4 If Sljkobdxm2432-84-68 06:25:00 Test Item Value Reference Range Interpretation Comments TSH (test code = 21.210 See_Comment H [Automated 30802-3) message] The system which generated this result transmit merna reference range : 0.350 - 5.500 uIU/mL. The reference range was not used to interpret this result as normal/abnormal . ZIA (test code = ZIA) Public Policy Professor ID - ADMIN Lab Interpretation Abnormal (test code = 99997-4) [facility] CenterFerritin2020-09-21 06:25:00 Test Item Value Reference Range Interpretation Comments Ferritin (test code = 595.00 ng/mL 10-291 H 2276-4) ZIA (test code = ZIA) Public Policy Professor ID - ADMIN Lab Interpretation (test Abnormal code = 74182-1) [facility] CenterTS/Free T4 If Mqvkvoazf9212-15-09 06:25:00 Test Item Value Reference Range Interpretation Comments TSH (test code = 21.210 See_Comment H [Automated 82083-7) message] The system which generated this result transmit merna reference range : 0.350 - 5.500 uIU/mL. The reference range was not used to interpret this result as normal/abnormal . ZIA (test code = ZIA) Public Policy Professor ID - ADMIN Lab Interpretation Abnormal (test code = 86887-8) [facility] CenterFERRITIN2020-09-21 06:25:00 Test Item Value Reference Range Interpretation Comments FERRITIN (BEAKER) (test code = 595.00 ng/mL 10.00-291.00 H 361) Public Policy Professor ID - ADMINTSH/FREE T4 IF [id number] 06:25:00 Test Item Value Reference Range Interpretation Comments THYROID STIMULATING HORMONE 21.210 uIU/mL 0.350-5.500 H (BEAKER) (test code = 772) Public Policy Professor ID - EFKBMOsiokunupe3351-11-10 06:06:00 Test Item Value Reference Range Interpretation Comments Fibrinogen (test code = 340 mg/dL 207-174 6508-7) ZIA (test code = ZIA) Final Information (Auto Output) Lab Interpretation (test Normal code = 02247-9) [facility] CenterPT/[id number] 06:06:00 Test Item Value Reference Interpretation Comments Range Protime (test code = 13.5 See_Comment H [Autom ated 1512-2) message] The system which generated this result transmitted reference range : 9.3 - 12.0 sec. The reference range was not used to interpret this result as normal/abnormal . INR (test code = 1.25 See_Comment [Automated 4661-6) message] The system which generated this result transmitted reference range : <=5.90. The reference range was not used to interpret this result as normal/abnormal . PTT (test code = 38.2 See_Comment H [Automated 91002-7) message] The system which generated this result [...] Output) Lab Interpretation Abnormal (test code = 60540-4) [facility] CenterFibrinogen2020-09-21 06:06:00 Test Item Value Reference Range Interpretation Comments Fibrinogen (test code = 340 mg/dL 724-411 1112-7) ZIA (test code = ZIA) Final Information (Auto Output) Lab Interpretation (test Normal code = 02192-2) [facility] CenterPT/[id number] 06:06:00 Test Item Value Reference Interpretation Comments Range Protime (test code = 13.5 See_Comment H [Autom ated 5902-2) message] The system which generated this result transmitted reference range : 9.3 - 12.0 sec. The reference range was not used to interpret this result as normal/abnormal . INR (test code = 1.25 See_Comment [Automated 2841-6) message] The system which generated this result transmitted reference range : <=5.90. The reference range was not used to interpret this result as normal/abnormal . PTT (test code = 38.2 See_Comment H [Automated 35625-1) message] The system which generated this result [...] Output) Lab Interpretation Abnormal (test code = 87274-0) [facility] CenterFIBRINOGEN2020-09-21 06:06:00 Test Item Value Reference Range Interpretation Comments FIBRINOGEN LEVEL (BEAKER) (test 340 mg/dL 200-400 code = 658) Final Information (Auto Output)PT/[id number] 06:06:00 Test Item Value Reference Range Interpretation [...] = 2502-3) ZIA (test code = ZIA) Public Policy Professor ID - ADMIN Lab Interpretation (test Abnormal code = 29588-1) [facility] CenterIron, TIBC, % sat. (without ferritin)2019-12-20 05:59:00 Test Item Value Reference Range Interpretation Comments Iron (test code = 2498-4) 92.0 ug/dL 45-170 TIBC (test code = 2500-7) 151 ug/dL 250-550 L Iron % Saturation (test 61 % 20-55 H code = 2502-3) ZIA (test code = ZIA) Public Policy Professor ID - ADMIN Lab Interpretation (test Abnormal code = 76003-7) [facility] % [facility]. (WITHOUT FERRITIN)2019-12-20 05:59:00 Test Item Value Reference Range Interpretation Comments IRON (BEAKER) (test code = 547) 92.0 ug/dL 45.0-170.0 TOTAL IRON BINDING CAPACITY 151 ug/dL 250-550 L (BEAKER) (test code = 769) IRON % SATURATION (2) (BEAKER) 61 % 20-55 H (test code = 2590) Public Policy Professor ID - ADMINCOMPREHENSIVE METABOLIC [id number] 05:55:00 Test Item Value Reference Range Interpretation [...] S NOT APPLICABLE FOR DIALYSIS PATIEN TS. Public Policy Professor ID - MSKNHC-hgxwh2135-53-21 05:46:00 Test Item Value Reference Range Interpretation Comments D-Dimer, Quant (test 1.09 mg/L <0.50 H code = 96976-5) ZIA (test code = ZIA) REGARDING D-DIMER RESULTS: The 98% NPV (Negative Predictive Value) for DVT/PE exclusion is 0.50 mg/L FEU as suggested by the gear machinist and as approved by the FDA.Final Information (Auto Output) Lab Interpretation (test Abnormal code = 04281-7) [facility] CenterD-xluqc2855-47-11 05:46:00 Test Item Value Reference Range Interpretation Comments D-Dimer, Quant (test 1.09 mg/L <0.50 H code = 86514-0) ZIA (test code = ZIA) REGARDING D-DIMER RESULTS: The 98% NPV (Negative Predictive Value) for DVT/PE exclusion is 0.50 mg/L FEU as suggested by the gear machinist and as approved by the FDA.Final Information (Auto Output) Lab Interpretation (test Abnormal code = 47601-1) [facility] CenterD-[id number] 05:46:00 Test Item Value Reference Range Interpretation Comments D-DIMER QUANTITATIVE (BEAKER) (test 1.09 mg/L <0.50 H code = 671) REGARDING D-DIMER RESULTS: The 98% NPV (Negative Predictive Value) for DVT/PE exclusion is 0.50 mg/LFEU as suggested by the gear machinist and as approved by the FDA.Final Information (Auto Output)Reticulocyte mjmvk5435-21-12 05:42:00 Test Item Value Reference Range Interpretation Comments % Retic (test code = 63817-6) 5.9 % 0.4-2.9 H Lab Interpretation (test code = Abnormal 90174-2) [facility] CenterReticulocyte [id number] 05:42:00 Test Item Value Reference Range Interpretation Comments % Retic (test code = 71281-5) 5.9 % 0.4-2.9 H Lab Interpretation (test code = Abnormal 69256-0) [facility] CenterRETICULOCYTE [id number] 05:42:00 Test Item Value Reference Range Interpretation Comments RETICULOCYTE COUNT PCT (BEAKER) (test 5.9 % 0.4-2.9 H code = 575) CBC W/PLT COUNT & AUTO [id number] 05:33:00 Test Item Value Reference Range Interpretation [...] U/L 107-206 ZIA (test code = ZIA) Public Policy Professor ID - ADMIN Lab Interpretation (test Normal code = 82914-5) [facility] CenterLactate dehydrogenase (LDH)2019-12-19 21:19:00 Test Item Value Reference Range Interpretation Comments LDH (test code = 2532-0) 178 U/L 107-206 ZIA (test code = ZIA) Public Policy Professor ID - ADMIN Lab Interpretation (test Normal code = 52095-6) [facility] CenterLACTATE DEHYDROGENASE (LDH)2019-12-19 21:19:00 Test Item Value Reference Range Interpretation Comments LACTATE DEHYDROGENASE (BEAKER) (test 178 U/L 107-206 code = 635) Public Policy Professor ID - ADMINPOCT-GLUCOSE [id number] 20:47:00 Test Item Value Reference Range Interpretation Comments POC-GLUCOSE METER 102 mg/dL 70-110 : TESTED A T [address] (BEAKER) (test code [address], = 1538) [facility] [address]: Public Policy Professor/Techni artemio ID = [id number] for Anahi Sherman POCT-GLUCOSE [id number] 16:18:00 Test Item Value Reference Range Interpretation Comments POC-GLUCOSE METER 96 mg/dL 70-110 : TESTED A T [address] (BEAKER) (test code = [address], 1538) [facility] [address]: Public Policy Professor/Techni artemio ID = [id number] for Nalini Jean Baptiste Basic Metabolic [id number] 06:26:00 Test Item Value Reference Range Interpretation Comments Sodium (test code = 138 meq/L 579-572 4652-2) Potassium (test code = 3.9 meq/L 3.6-5.5 2823-3) Chloride (test code = 99 meq/L 98-106 2075-0) CO2 (test code = 30 meq/L 20-29 H 2028-9) BUN (test code = 47 mg/dL 10-26 H 3094-0) Creatinine (test code 3.04 mg/dL 0.5-1.2 H = 2160-0) Glucose (test code = 82 mg/dL 70-110 2345-7) Calcium (test code = 7.9 mg/dL 8.5-10.5 L 09540-0) EGFR (test code = 15 mL/min/1.73 [place] [address]-4) NOT ACCURATE CREATININE CLEARANCE IN PREDICTING GLOMERULAR FILTRATION RATE . ESTIMATED GFR I S NOT APPLICABLE FOR DIALYSIS PATIENTS. ZIA (test code = ZIA) Public Policy Professor ID - ADMIN Lab Interpretation Abnormal (test code = 85031-3) [facility] CenterBasic Metabolic [id number] 06:26:00 Test Item Value Reference Range Interpretation Comments Sodium (test code = 138 meq/L 733-962 7759-2) Potassium (test code = 3.9 meq/L 3.6-5.5 2823-3) Chloride (test code = 99 meq/L 98-106 2075-0) CO2 (test code = 30 meq/L 20-29 H 2028-9) BUN (test code = 47 mg/dL 10-26 H 3094-0) Creatinine (test code 3.04 mg/dL 0.5-1.2 H = 2160-0) Glucose (test code = 82 mg/dL 70-110 2345-7) Calcium (test code = 7.9 mg/dL 8.5-10.5 L 83581-8) EGFR (test code = 15 mL/min/1.73 [place] [address]-9) NOT ACCURATE CREATININE CLEARANCE IN PREDICTING GLOMERULAR FILTRATION RATE . ESTIMATED GFR I S NOT APPLICABLE FOR DIALYSIS PATIENTS. ZIA (test code = ZIA) Public Policy Professor ID - ADMIN Lab Interpretation Abnormal (test code = 11925-5) [facility] CenterBASI METABOLIC [id number] 06:26:00 Test Item Value Reference Range Interpretation [...] S NOT APPLICABLE FOR DIALYSIS PATIEN TS. Public Policy Professor ID - ADMINCBC W/PLT COUNT & AUTO [id number] 06:04:00 Test Item Value Reference Range Interpretation [...] PERCENT (BEAKER) (test code = 2801) POCT-GLUCOSE [id number] 05:35:00 Test Item Value Reference Range Interpretation Comments POC-GLUCOSE METER 85 mg/dL 70-110 : Notified RN/MD: TESTED (BEAKER) (test code = AT [address]) [place] [address]368: Public Policy Professor/Techni artemio ID = [id number] for Siddhartha Healyar POCT-GLUCOSE [id number] 21:46:00 Test Item Value Reference Range Interpretation Comments POC-GLUCOSE METER 125 mg/dL 70-110 H : Notified RN/MD: TESTED (BEAKER) (test code AT [address] = 1538) [place] 656368: Public Policy Professor/Techni artemio ID = [id number] for Keen , Zonia POCT-GLUCOSE [id number] 16:17:00 Test Item Value Reference Range Interpretation Comments POC-GLUCOSE METER 103 mg/dL 70-110 : TESTED A T [address] (BEAKER) (test code [address] [facility], = 1538) [place] [address]: Public Policy Professor/Techni artemio ID = [id number] for Akhil rs, Shelea POCT-GLUCOSE [id number] 07:56:00 Test Item Value Reference Range Interpretation Comments POC-GLUCOSE METER 111 mg/dL 70-110 H : TESTED A T [address] (BEAKER) (test [facility] [facility] = 1538) [place] [address]7588: Public Policy Professor/Techni artemio ID = [id number] for Akhil rs, Shelea POCT-GLUCOSE [id number] 06:25:00 Test Item Value Reference Range Interpretation Comments POC-GLUCOSE METER 57 mg/dL 70-110 L : TESTED A T [address] (BEAKER) (test code = [address], 15[address]) [place] [address]: Public Policy Professor/Techni artemio ID = [id number] for Anne Busby POCT-GLUCOSE [id number] 21:55:00 Test Item Value Reference Range Interpretation Comments POC-GLUCOSE METER 76 mg/dL 70-110 : TESTED A T [address] (BEAKER) (test code = [address], 15[address]) [place] [address]: Public Policy Professor/Techni artemio ID = [id number] for Anne Busby POCT-GLUCOSE [id number] 18:03:00 Test Item Value Reference Range Interpretation Comments POC-GLUCOSE METER 81 mg/dL 70-110 : TESTED A T [address] (BEAKER) (test code = [address], 1538) [facility] 77 478: Public Policy Professor/Techni artemio ID = [id number] for Ericka Daniel POCT-GLUCOSE [id number] 12:33:00 Test Item Value Reference Range Interpretation Comments POC-GLUCOSE METER 73 mg/dL 70-110 : TESTED A T SLSL 1317 (BEAKER) (test code = [address], 1538) [facility] 77 478: Public Policy Professor/Techni artemio ID = [id number] for Marisela Bolton Hepatitis B surface [id number] 10:49:00 Test Item Value Reference Range Interpretation Comments Hep B S Ab (test code <8.0 See_Comment [Auto mated = 53595-1) message] The system which generated this result transmit merna reference range : <8.0 mIU/mL. Th e reference range was not used to interpret this result as normal/abnormal . ZIA (test code = ZIA) Public Policy Professor ID - LEONIE Jay Lab Interpretation Normal (test code = 46161-3) [facility] surface [id number] 10:49:00 Test Item Value Reference Range Interpretation Comments Hep B S Ab (test code <8.0 See_Comment [Auto mated = 32908-8) message] The system which generated this result transmit merna reference range : <8.0 mIU/mL. Th e reference range was not used to interpret this result as normal/abnormal . ZIA (test code = ZIA) Public Policy Professor ID - LEONIE Jay Lab Interpretation Normal (test code = 84376-8) [facility] [id number] 10:49:00 Test Item Value Reference Range Interpretation Comments HEPATITIS B SURFACE ANTIBODY < mIU/mL <8.0 (BEAKER) (test code = 647) Public Policy Professor ID - LEONIE FHepatitis B core antibody, [id number] 10:43:00 Test Item Value Reference Range Interpretation Comments Hep B Core Total Ab Nonreactive Nonreactive (test code = 59191-2) ZIA (test code = ZIA) Public Policy Professor ID Bijal Jay Lab Interpretation (test Normal code = 62590-2) [facility] C [id number] 10:43:00 Test Item Value Reference Range Interpretation Comments Hepatitis C Ab (test Nonreactive Nonreactive code = 91528-5) ZIA (test code = ZIA) Public Policy Professor DIONICIO Jay Lab Interpretation (test Normal code = 15833-6) [facility] B core antibody, [id number] 10:43:00 Test Item Value Reference Range Interpretation Comments Hep B Core Total Ab Nonreactive Nonreactive (test code = 40635-8) ZIA (test code = ZIA) Public Policy Professor ID Bijal Jay Lab Interpretation (test Normal code = 54227-5) [facility] C [id number] 10:43:00 Test Item Value Reference Range Interpretation Comments Hepatitis C Ab (test Nonreactive Nonreactive code = 89306-8) ZIA (test code = ZIA) Public Policy Professor DIONICIO Jay Lab Interpretation (test Normal code = 11255-5) [facility] C [id number] 10:43:00 Test Item Value Reference Range Interpretation Comments HEPATITIS C ANTIBODY (BEAKER) Nonreactive Nonreactive (test code = 367) Public Policy Professor DIONICIO HADLEY FHEPATITIS B CORE ANTIBODY, [id number] 10:43:00 Test Item Value Reference Range Interpretation Comments HEPATITIS B CORE TOTAL ANTIBODY Nonreactive Nonreactive (BEAKER) (test code = 497) Public Policy Professor ID Bijal HADLEY FPOCT-GLUCOSE [id number] 06:31:00 Test Item Value Reference Range Interpretation Comments POC-GLUCOSE METER 67 mg/dL 70-110 L : TESTED A T SLSL 1317 (BEAKER) (test code = [address], 1538) [facility] 77 478: Public Policy Professor/Techni artemio ID = [id number] for Anne Busby COMPREHENSIVE METABOLIC [id number] 05:10:00 Test Item Value Reference Range Interpretation [...] S NOT APPLICABLE FOR DIALYSIS PATIEN TS. Public Policy Professor ID - ADMINCBC W/PLT COUNT & AUTO [id number] 04:36:00 Test Item Value Reference Range Interpretation [...] PERCENT (BEAKER) (test code = 2801) POCT-GLUCOSE [id number] 21:14:00 Test Item Value Reference Range Interpretation Comments POC-GLUCOSE METER 79 mg/dL 70-110 : TESTED A T SLSL 1317 (BEAKER) (test code = [address], 1538) [facility] 77 478: Public Policy Professor/Techni artemio ID = [id number] for Anne Busby POCT-GLUCOSE [id number] 18:35:00 Test Item Value Reference Range Interpretation Comments POC-GLUCOSE METER 68 mg/dL 70-110 L : Notified RN/MD: TESTED (BEAKER) (test code = AT [facility] L [address]) [place] [address]: Public Policy Professor/Techni artemio ID = [id number] for Alondra Kelley SARS-COV2/RT-PCR ([facility])2019-12-16 17:53:00 Test Item Value Reference Range Interpretation Comments SARS-COV2/RT-PCR (test Negative Not Detected, Negative, code = 9829905) See external report for linked test SARS-COV-[address] [facility] JANET (test code = 1089330) Negative result for this test determines that [...] 564(g) of the Act.Fact Sheet for Healthcare Providers:https://www.[employer].com/sites/default/files/product/documents/Fact_Shee f_XW_Wnwuqjlob_Vohi_MJDF-YfP-8.pdfFact Sheet for Healthcare Patients:https://www.[employer].babbel/sites/default/files/product/ documents/Xsue_Ilciw_Fdkqxxzv_Ddkt_PNEZ-VzU-9.pdfPerforming Laboratory:[facility], [place] [address]Fdncjibna B surface [id number] 16:57:00 Test Item Value Reference Range Interpretation Comments HBsAg Screen (test code = Nonreactive Nonreactive 5195-3) ZIA (test code = ZIA) Public Policy Professor ID - ADMIN Lab Interpretation (test Normal code = 48160-9) [facility] CenterHepatimcnairy [facility] B surface [id number] 16:57:00 Test Item Value Reference Range Interpretation Comments HBsAg Screen (test code = Nonreactive Nonreactive 5195-3) ZIA (test code = ZIA) Public Policy Professor ID - ADMIN Lab Interpretation (test Normal code = 89569-3) [facility] SURFACE [id number] 16:57:00 Test Item Value Reference Range Interpretation Comments HEPATITIS B SURFACE ANTIGEN (2) Nonreactive Nonreactive (BEAKER) (test code = 2585) Public Policy Professor ID - ADMINANG, TUNNELED CATHETER [id number] 15:06:00Reason for Central Line/PICC?->Need for hemodialysis accessReason [...] the patient's medical record by the nurse. Lime Puller: Soto Arias M.D. Swat Team Member: none. Approach: Right internal jugular vein Estimated [...] needle into the right atrium. A 4 Guamanian micropuncture sheath was placed and a 0.035 wire was advanced into the IVC. A subcutaneous tunnel was created in the left anterior chest wall by blunt dissection. A 23 cm tip to cuff 15.5 Guamanian Duraflow 2 catheter was brought through the [...] Arias MDReport Verified Date/Time: 12/16/2019 15:06:45Reading Location: [facility] Radiology Reading Room IR Tunneled Catheter [id number] 15:06:00 Interface, External Ris In - 12/16/2019 [...] the patient's medical record by the nurse. Lime Puller: Roberto Carlos Carroll istant: none. Approach: Right [...] A 23 cm tip to cuff 15.5 Guamanian Duraflow 2 catheter was brought through the [...] the procedure well [facility]. Results: Spot radiograph of the chest demonstrates the new dialysis catheter to lie in theexpected position with its tip overlying the superior right atrium. Impression: 1. Successful, uncomplicated placement of a left internal jugular tunneled dialysiscatheter using sonographic and fluoroscopic guidance and conscious sedation. Signed: Soto Arias MDReport Verified Date/Time: 12/16/2019 15:06:45 Reading Location: [facility] Radiology Reading [facility] 2019-12-16 15:06:00Interface, External [...] the patient's medical record by the nurse. Lime Puller: Soto Arias M.D. Swat Team Member: none. Approach: Right internal jugular vein Estimated [...] A 23 cm tip to cuff 15.5 Guamanian Duraflow 2 catheter was brought through the [...] MDReport Verified Date/Time: 12/16/2019 15:06:45 Reading Location: [facility] Radiology Reading Room [facility] HospitalPO[facility] [id number] 14:59:00 Test Item Value Reference Range Interpretation Comments POC-GLUCOSE METER 70 mg/dL 70-110 : Notified RN/MD: TESTED (BEAKER) (test code = AT [facility] L [address]) [facility] [address]: Public Policy Professor/Techni artemio ID = [id number] for romero julio Alondra POCT-GLUCOSE [id number] 11:13:00 Test Item Value Reference Range Interpretation Comments POC-GLUCOSE METER 72 mg/dL 70-110 : Notified RN/MD: TESTED (BEAKER) (test code = AT [facility] L [address]) [facility] [address]: Public Policy Professor/Techni artemio ID = [id number] for Repa julio, Alondra RAD, CHEST, 1 VIEW, NON [id number] 09:20:00Reason for exam:->fallShould this be performed at [...] MDReport Verified Date/Time: 12/16/2019 09:20:06 Reading Location: [facility] Radiology Reading Room XR chest 1 view portable / [id number] 09:20:00Interface, External Ris In - 12/16/2019 9:22 [...] MDReport Verified Date/Time: 12/16/2019 09:20:06 Reading Location: [facility] Radiology Reading Room Electronically yeimi d by: SOTO ARIAS MD on 12/16/2019 09:20 [facility] XR chest 1 view portable / [id number] 09:20:00Interface, External Ris In - 12/16/2019 9:22 [...] MDReport Verified Date/Time: 12/16/2019 09:20:06 Reading Location: [facility] Radiology Reading Room [facility] 2019-12-16 06:03:00 Test Item Value Reference Range Interpretation Comments POC-GLUCOSE METER 74 mg/dL 70-110 : Notified RN/MD: TESTED (BEAKER) (test code = AT [facility] [address]) [facility] [address]: Public Policy Professor/Techni artemio ID = [id number] for Zonia Healy BASIC METABOLIC [id number] 05:08:00 Test Item Value Reference Range Interpretation [...] 8.5-10.5 L (test code = 697) EGFR (ROBERT) (test 12 mL/min/1.73 ESTIMA MERNA GFR IS code = 1092) sq m NOT ACCURATE CREATININE CLEARANCE IN PREDICTING GLOMERULAR FILTRATION RATE . ESTIMATED GFR I S NOT APPLICABLE FOR DIALYSIS PATIEN TS. Public Policy Professor ID - ADMINProthrombin time/[id number] 05:01:00 Test Item Value Reference Interpretation Comments [...] Output) Lab Interpretation Abnormal (test code = 90418-3) [facility] CenterProthrombin time/[id number] 05:01:00 Test Item Value Reference Interpretation Comments [...] Output) Lab Interpretation Abnormal (test code = 50391-5) [facility] CenterPROTHROMBIN TIME/[id number] 05:01:00 Test Item Value Reference Range Interpretation [...] Information (Auto Output)CBC W/PLT COUNT & AUTO [id number] 04:46:00 Test Item Value Reference Range Interpretation [...] PERCENT (BEAKER) (test code = 2801) POCT-GLUCOSE [id number] 17:13:00 Test Item Value Reference Range Interpretation Comments POC-GLUCOSE METER 220 mg/dL 70-[address] [facility] 6720 (BEAKER) (test code = JULIANO Osborne [place] 1538) [address] BASIC METABOLIC [id number] 15:47:00 Test Item Value Reference Range Interpretation [...] NOT APPLICABLE FOR DIALYSIS PATIEN TS. POCT-GLUCOSE [id number] 11:30:00 Test Item Value Reference Range Interpretation Comments POC-GLUCOSE METER 268 mg/dL 70-[address] [facility] 6720 (BEAKER) (test code = JULIANO Osborne [facility] 1538) [address] POCT-GLUCOSE [id number] 07:08:00 Test Item Value Reference Range Interpretation Comments POC-GLUCOSE METER 208 mg/dL 70-[address] [facility] 6720 (BEAKER) (test code = JULIANO Osborne [facility] 1538) [address] CALCIUM, [id number] 06:47:00 Test Item Value Reference Range Interpretation Comments CALCIUM IONIZED (BEAKER) (test 1.11 mmol/L 1.12-1.27 L code = 698) PH, BLOOD (BEAKER) (test code = 7.40 1810) BASIC METABOLIC [id number] 06:40:00 Test Item Value Reference Range Interpretation [...] 697) EGFR (BEAKER) (test 25 mL/min/1.73 ESTIMA MRENA GFR IS code = 1092) sq m NOT ACCURATE CREATININE CLEARANCE IN PREDICTING GLOMERULAR FILTRATION RATE . ESTIMATED GFR I S NOT APPLICABLE FOR DIALYSIS PATIEN TS. [id number] 06:33:00 Test Item Value Reference Range Interpretation Comments PHOSPHORUS (BEAKER) (test code = 5.1 mg/dL 2.3-4.7 H 604) [id number] 06:33:00 Test Item Value Reference Range Interpretation Comments MAGNESIUM (BEAKER) (test code = 2.0 mg/dL 1.6-2.6 627) LACTIC ACID, VENOUS, WHOLE [id number] 06:02:00 Test Item Value Reference Range Interpretation Comments LACTATE BLOOD VENOUS (2) (BEAKER) 0.8 mmol/L 0.5-2.2 (test code = 2872) Effective 08/02/2015: Units/Reference Range ChangeNew: 0.5-2.2 mmol/L Previous: 5-20 mg/dLCBC W/PLT COUNT & AUTO [id number] 05:54:00 Test Item Value Reference Range Interpretation [...] PERCENT (BEAKER) (test code = 2801) POCT-GLUCOSE [id number] 21:30:00 Test Item Value Reference Range Interpretation Comments POC-GLUCOSE METER 248 mg/dL 70-[address] [facility] 6720 ([facility]) (test code = [place] 1538) [address] RAD, [id number] 21:22:00Reason for exam:->fall, tailbone painFINAL REPORT RAD, [...] Connor Verified Date/Time: 09/04/2017 21:22:03 Reading Location: [facility] C013T [facility] Reading Room POCT-GLUCOSE [id number] 17:37:00 Test Item Value Reference Range Interpretation Comments POC-GLUCOSE METER 222 mg/dL 70-[address] [facility] 6720 (BEAKER) (test code = JULIANO [place] 1538) [address] POCT-GLUCOSE [id number] 13:55:00 Test Item Value Reference Range Interpretation Comments POC-GLUCOSE METER 194 mg/dL 70-[address] [facility] 6720 (BEAKER) (test [facility] [place] [place] 1538) [address] POCT-GLUCOSE [id number] 12:34:00 Test Item Value Reference Range Interpretation Comments POC-GLUCOSE METER 229 mg/dL 70-[address] [facility] 6720 (BEAKER) (test code = [facility] [place] 1538) [address] POCT-GLUCOSE [id number] 08:00:00 Test Item Value Reference Range Interpretation Comments POC-GLUCOSE METER 159 mg/dL 70-[address] [facility] 6720 (BEAKER) (test code = [facility] [place] [facility] 1538) [address] CALCIUM, [id number] 06:00:00 Test Item Value Reference Range Interpretation Comments CALCIUM IONIZED (BEAKER) (test 1.05 mmol/L 1.12-1.27 L code = 698) PH, BLOOD (BEAKER) (test code = 7.45 1810) [id number] 05:59:00 Test Item Value Reference Range Interpretation Comments PHOSPHORUS (BEAKER) (test code = 4.8 mg/dL 2.3-4.7 H 604) [id number] 05:59:00 Test Item Value Reference Range Interpretation Comments MAGNESIUM (BEAKER) (test code = 2.0 mg/dL 1.6-2.6 627) BASIC METABOLIC [id number] 05:59:00 Test Item Value Reference Range Interpretation [...] = 380) CBC W/PLT COUNT & AUTO [id number] 05:32:00 Test Item Value Reference Range Interpretation [...] PERCENT (BEAKER) (test code = 2801) POCT-GLUCOSE [id number] 20:36:00 Test Item Value Reference Range Interpretation Comments POC-GLUCOSE METER 211 mg/dL 70-110 H TEST[facility] [place] [address] [facility] (test code = [facility] 1538) [address] CREATININE, RANDOM [id number] 19:55:00 Test Item Value Reference Range Interpretation Comments CREATININE URINE (BEAKER) (test 16.1 mg/dL code = 375) Reference Range: No NormalsPROTEIN, RANDOM [id number] 19:55:00 Test Item Value Reference Range Interpretation Comments PROTEIN, URINE (BEAKER) (test code 102 mg/dL 0-14 H = 1569) POCT-GLUCOSE [id number] 18:04:00 Test Item Value Reference Range Interpretation Comments POC-GLUCOSE METER 177 mg/dL 70-110 H TESTED AT [place] [address] ([facility]) (test code = [facility] 1538) [address] POCT-GLUCOSE [id number] 11:59:00 Test Item Value Reference Range Interpretation Comments POC-GLUCOSE METER 244 mg/dL 70-110 H TESTED AT [place] [address] [facility] (test code = [facility] 1538) [address] POCT-GLUCOSE [id number] 07:53:00 Test Item Value Reference Range Interpretation Comments POC-GLUCOSE METER 160 mg/dL 70-[address] [facility] 6720 (BEAKER) (test code = [place] 1536) [address] BASIC METABOLIC [id number] 05:29:00 Test Item Value Reference Range Interpretation [...] S NOT APPLICABLE FOR DIALYSIS PATIEN TS. [id number] 05:21:00 Test Item Value Reference Range Interpretation Comments MAGNESIUM (BEAKER) (test code = 2.1 mg/dL 1.6-2.6 627) HEPATIC FUNCTION [id number] 05:21:00 Test Item Value Reference Range Interpretation [...] code = 23 U/L 6-55 347) TROPONIN [id number] 05:18:00 Test Item Value Reference Range Interpretation [...] PERCENT (BEAKER) (test code = 2801) TROPONIN [id number] 23:40:00 Test Item Value Reference Range Interpretation [...] acidosis, acute neurological disease, and persistent tachyarrhythmia.POCT-GLUCOSE [id number] 22:51:00 Test Item Value Reference Range Interpretation Comments POC-GLUCOSE METER 214 mg/dL 70-[address] [facility] 6720 ([facility]) (test code = JULIANO Osborne [facility] 1538) [address] RAD, CHEST, 1 VIEW, NON [id number] 21:42:00Reason for exam:->CHEST PAINShould this be performed at the bedside?->YesFINAL REPORT RAD, CHEST, 1 VIEW, NON DEPT INDICATION: CHEST PAIN COMPARISON: Chest x-ray 4 weeks ago TECHNIQUE: Single frontal view of the chest. IMPRESSION:Cardiomegaly.Mild pulmonary interstitial edema with a small right- sided effusion.No acute osseous abnormality. Signed: Leigh, Saidmunib MDReport Verified Date/Time: 09/02/2017 21:42:11 Reading Location: [facility] C013T [facility] on[facility] Reading Room CREATININE, RANDOM [id number] 21:10:00 Test Item Value Reference Range Interpretation Comments CREATININE URINE (BEAKER) (test 35.5 mg/dL code = 375) Reference Range: No NormalsSODIUM, RANDOM [id number] 21:10:00 Test Item Value Reference Range Interpretation Comments SODIUM URINE (BEAKER) (test code = 80 meq/L 243) Reference Range: No NormalsURINALYSIS W/ [id number] 20:59:00 Test Item Value Reference Range Interpretation [...] code = 514) SOURCE(BEAKER) (test code = 0441) BASIC METABOLIC [id number] 16:49:00 Test Item Value Reference Range Interpretation [...] S NOT APPLICABLE FOR DIALYSIS PATIEN TS. [id number] 16:38:00 Test Item Value Reference Range Interpretation [...] (BEAKER) (test code = 700) BASIC METABOLIC [id number] 13:43:00 Test Item Value Reference Range Interpretation [...] NOT APPLICABLE FOR DIALYSIS PATIEN TS. POCT-GLUCOSE [id number] 12:44:00 Test Item Value Reference Range Interpretation Comments POC-GLUCOSE METER 283 mg/dL 70-[address] [facility] 6720 (BEAKER) (test code = [place] 1538) [address] CALCIUM, [id number] 07:03:00 Test Item Value Reference Range Interpretation Comments CALCIUM IONIZED (BEAKER) (test 1.02 mmol/L 1.12-1.27 L code = 698) PH, BLOOD (BEAKER) (test code = 7.43 1810) [id number] 05:28:00 Test Item Value Reference Range Interpretation Comments PHOSPHORUS (BEAKER) (test code = 3.3 mg/dL 2.3-4.7 604) [id number] 05:28:00 Test Item Value Reference Range Interpretation Comments MAGNESIUM (BEAKER) (test code = 1.5 mg/dL 1.6-2.6 L 627) BASIC METABOLIC [id number] 05:28:00 Test Item Value Reference Range Interpretation [...] PATIEN TS. CBC W/PLT COUNT & AUTO [id number] 05:06:00 Test Item Value Reference Range Interpretation [...] PERCENT (BEAKER) (test code = 2801) POCT-GLUCOSE [id number] 21:08:00 Test Item Value Reference Range Interpretation Comments POC-GLUCOSE METER 202 mg/dL 70-110 H TESTED AT [place] [address] ([facility]) (test code = [facility] 1538) [address] POCT-GLUCOSE [id number] 16:50:00 Test Item Value Reference Range Interpretation Comments POC-GLUCOSE METER 287 mg/dL 70-110 H TESTED AT [place] [address] ([facility]) (test code = [facility] 1538) [address] POCT-GLUCOSE [id number] 12:21:00 Test Item Value Reference Range Interpretation Comments POC-GLUCOSE METER 213 mg/dL 70-110 H [facility] AT [place] [address] [facility] (test code = [facility] 1538) [address] POCT-GLUCOSE [id number] 08:28:00 Test Item Value Reference Range Interpretation Comments POC-GLUCOSE METER 178 mg/dL 70-110 H TESTED AT [place] [address] ([facility]) (test code = [facility] 1538) [address] CALCIUM, [id number] 07:06:00 Test Item Value Reference Range Interpretation Comments CALCIUM IONIZED ([facility]) (test 0.99 mmol/L 1.12-1.27 L code = 698) PH, BLOOD (BEAKER) (test code = 7.42 1810) [id number] 05:37:00 Test Item Value Reference Range Interpretation Comments PHOSPHORUS (BEAKER) (test code = 3.5 mg/dL 2.3-4.7 604) [id number] 05:37:00 Test Item Value Reference Range Interpretation Comments MAGNESIUM (BEAKER) (test code = 1.6 mg/dL 1.6-2.6 627) BASIC METABOLIC [id number] 05:37:00 Test Item Value Reference Range Interpretation [...] 697) EGFR (BEAKER) (test 37 mL/min/1.73 ESTIMA MRENA GFR IS code = 1092) sq m NOT ACCURATE CREATININE CLEARANCE IN PREDICTING GLOMERULAR FILTRATION RATE . ESTIMATED GFR I S NOT APPLICABLE FOR DIALYSIS PATIEN TS. CBC W/PLT COUNT & AUTO [id number] 05:07:00 Test Item Value Reference Range Interpretation [...] 0-1 PERCENT (BEAKER) (test code = 2809) POCT-GLUCOSE [id number] 21:24:00 Test Item Value Reference Range Interpretation Comments POC-GLUCOSE METER 255 mg/dL 70-[address] [facility] 6720 [facility] (test code = JULIANO REYEZ 1538) [address] POCT-GLUCOSE [id number] 17:11:00 Test Item Value Reference Range Interpretation Comments POC-GLUCOSE METER 244 mg/dL 70-[address] [facility] 6720 (BEAKER) (test code = JULIANO Osborne [facility] 1538) [address] POCT-GLUCOSE [id number] 11:54:00 Test Item Value Reference Range Interpretation Comments POC-GLUCOSE METER 209 mg/dL 70-[address] [facility] 6720 (ROBERT) (test code = JULIANO Osborne [facility] 1538) [address] POCT-GLUCOSE [id number] 08:15:00 Test Item Value Reference Range Interpretation Comments POC-GLUCOSE METER 132 mg/dL 70-110 H TESTED AT [place] [address] ([facility]) (test code = JULIANO Osobrne [facility] 1538) [address] RAD, CHEST, 1 VIEW, NON [id number] 07:44:00Reason for exam:->edemaShould this be performed at the bedside?->YesFINAL REPORT Chest one view AP 08/07/2017 7:44 AM CLINICAL INDICATION: edema COMPARISON: 05/31/2017 IMPRESSION: Cardiomediastinal contours are stable. There is mild pulmonary edema,asymmetric to the right. There are trace bilateral pleural effusions, with bibasilar linear atelectasis. Sternotomy wires remain midline. Signed: Regan Cespedes Verified Date/Time: 08/07/2017 07:44:22 Reading Location: [facility] Radiology Reading Room [id number] 05:30:00 Test Item Value Reference Range Interpretation Comments FERRITIN (BEAKER) (test code = 361) 87 ng/mL 5-275 CBC W/PLT COUNT & AUTO [id number] 05:21:00 Test Item Value Reference Range Interpretation [...] % 20-55 L (test code = 2590) [id number] 05:11:00 Test Item Value Reference Range Interpretation Comments PHOSPHORUS (BEAKER) (test code = 3.6 mg/dL 2.3-4.7 604) [id number] 05:11:00 Test Item Value Reference Range Interpretation Comments MAGNESIUM (BEAKER) (test code = 2.0 mg/dL 1.6-2.6 627) BASIC METABOLIC [id number] 05:11:00 Test Item Value Reference Range Interpretation [...] H (BEAKER) (test code = 700) CALCIUM, [id number] 04:58:00 Test Item Value Reference Range Interpretation Comments CALCIUM IONIZED (BEAKER) (test 1.04 mmol/L 1.12-1.27 L code = 698) PH, BLOOD (BEAKER) (test code = 7.41 1810) RETICULOCYTE [id number] 04:51:00 Test Item Value Reference Range Interpretation Comments RETICULOCYTE COUNT PCT (BEAKER) (test 1.2 % 0.5-1.7 code = 575) POCT-GLUCOSE [id number] 20:49:00 Test Item Value Reference Range Interpretation Comments POC-GLUCOSE METER 202 mg/dL 70-[address] [facility] 6720 (BEAKER) (test code = JULIANO REYEZ 1538) [address] CREATININE, RANDOM [id number] 18:38:00 Test Item Value Reference Range Interpretation Comments CREATININE URINE (BEAKER) (test 56.3 mg/dL code = 375) Reference Range: No NormalsPROTEIN, RANDOM [id number] 18:38:00 Test Item Value Reference Range Interpretation Comments PROTEIN, URINE (BEAKER) (test code 189 mg/dL 0-14 H = 1569) URINALYSIS W/ [id number] 18:34:00 Test Item Value Reference Range Interpretation [...] 516) SOURCE(BEAKER) (test code = Urine, Voided 1234) POCT-GLUCOSE [id number] 17:38:00 Test Item Value Reference Range Interpretation Comments POC-GLUCOSE METER 143 mg/dL 70-110 H TESTED AT [place] [address] (BEAKER) (test code = JULIANO Osborne [place] 1538) [address] POCT-GLUCOSE [id number] 12:30:00 Test Item Value Reference Range Interpretation Comments POC-GLUCOSE METER 218 mg/dL 70-110 H TESTED AT [place] [address] (BEAKER) (test code = JULIANO Osborne [facility] 1538) [address] POCT-GLUCOSE [id number] 08:00:00 Test Item Value Reference Range Interpretation Comments POC-GLUCOSE METER 134 mg/dL 70-110 H TESTED AT [place] [address] (BEAKER) (test code = JULIANO Osborne [facility] 1538) [address] CBC W/PLT COUNT & AUTO [id number] 04:23:00 Test Item Value Reference Range Interpretation [...] (BEAKER) (test code = 2801) BASIC METABOLIC [id number] 04:13:00 Test Item Value Reference Range Interpretation [...] S NOT APPLICABLE FOR DIALYSIS PATIEN TS. [id number] 04:10:00 Test Item Value Reference Range Interpretation Comments PHOSPHORUS (BEAKER) (test code = 4.9 mg/dL 2.3-4.7 H 604) [id number] 04:10:00 Test Item Value Reference Range Interpretation Comments MAGNESIUM (BEAKER) (test code = 1.4 mg/dL 1.6-2.6 L 627) [id number] 04:08:00 Test Item Value Reference Range Interpretation Comments FIBRINOGEN LEVEL (BEAKER) (test 548 mg/dl 225-434 H code = 658) [id number] 04:08:00 Test Item Value Reference Range Interpretation Comments PARTIAL THROMBOPLASTIN TIME 37.7 seconds 22.5-36.0 H (BEAKER) (test code = 760) PROTHROMBIN [id number] 04:07:00 Test Item Value Reference Range Interpretation Comments PROTIME (BEAKER) (test code = 16.2 seconds 11.7-14.7 H 759) INR (BEAKER) (test code = 370) 1.3 <=5.9 RECOMMENDED COUMADIN/WARFARIN INR THERAPY RANGESSTANDARD DOSE: 2.0 - 3.0 Includes: PROPHYLAXIS forvenous thrombosis, systemic embolization; TREATMENT for venous thrombosis and/or pulmonary embolus.HIGH RISK: Target INR is 2.5-3.5 for patients with mechanical heart valves.[id number] 16:59:00 Test Item Value Reference Range Interpretation Comments ACTIVATED CLOTTING TIME 219 sec TEST ED AT [facility] 6720 (BEAKER) (test code = JULIANO Osborne [place] 441) [address] BASIC METABOLIC [id number] 14:25:00 Test Item Value Reference Range Interpretation [...] NOT APPLICABLE FOR DIALYSIS PATIEN TS. POCT-GLUCOSE [id number] 13:21:00 Test Item Value Reference Range Interpretation Comments POC-GLUCOSE METER 170 mg/dL 70-[address] [facility] 6720 (BEAKER) (test code = JULIANO [place] 1538) [address] POTASSIUM-STAT [id number] 13:20:00 Test Item Value Reference Range Interpretation Comments POTASSIUM (BEAKER) (test code = 4.2 meq/L 3.6-5.5 379) SODIUM NA-STAT [id number] 13:20:00 Test Item Value Reference Range Interpretation Comments SODIUM (BEAKER) (test code = 381) 133 meq/L 135-148 L HGB/HCT (H&H) - STAT [id number] 12:34:00 Test Item Value Reference Range Interpretation Comments HEMOGLOBIN (BEAKER) (test code = 10.8 g/dL 12.0-15.0 L 410) HEMATOCRIT (BEAKER) (test code = 32.0 % 36.0-45.0 L 411) POTASSIUM-STAT [id number] 08:15:00 Test Item Value Reference Range Interpretation Comments POTASSIUM (BEAKER) (test code = 4.1 meq/L 3.6-5.5 379) BLOOD GAS, [id number] 08:15:00 Test Item Value Reference Range Interpretation [...] code = 1819) 70.0 % SODIUM NA-STAT [id number] 08:15:00 Test Item Value Reference Range Interpretation Comments SODIUM (BEAKER) (test code = 381) 130 meq/L 135-148 L GLUCOSE-STAT [id number] 08:15:00 Test Item Value Reference Range Interpretation Comments GLUCOSE RANDOM (BEAKER) (test code 172 mg/dL 70-110 H = 652) HGB/HCT (H&H) - STAT [id number] 08:15:00 Test Item Value Reference Range Interpretation Comments HEMOGLOBIN (BEAKER) (test code = 8.8 g/dL 12.0-15.0 L 410) HEMATOCRIT (BEAKER) (test code = 26.0 % 36.0-45.0 L 411) BASIC METABOLIC [id number] 07:37:00 Test Item Value Reference Range Interpretation [...] PATIEN TS. CBC W/PLT COUNT & AUTO [id number] 07:20:00 Test Item Value Reference Range Interpretation [...] PERCENT (BEAKER) (test code = 2801) POCT-GLUCOSE [id number] 07:03:00 Test Item Value Reference Range Interpretation Comments POC-GLUCOSE METER 186 mg/dL 70-[address] [facility] 6720 (BEAKER) (test code = JULIANO [place] 1538) [address] B-TYPE NATRIURETIC FACTOR (BNP)2017-06-10 12:44:00 Test Item Value Reference Range Interpretation Comments B-TYPE NATRIURETIC PEPTIDE 1264 pg/mL 0-100 H (BEAKER) (test code = 700) [id number] 12:36:00 Test Item Value Reference Range Interpretation Comments MAGNESIUM (BEAKER) (test code = 1.6 mg/dL 1.6-2.6 627) BASIC METABOLIC [id number] 12:36:00 Test Item Value Reference Range Interpretation [...] NOT APPLICABLE FOR DIALYSIS PATIEN TS. POCT-GLUCOSE [id number] 12:04:00 Test Item Value Reference Range Interpretation Comments POC-GLUCOSE METER 274 mg/dL 70-110 [facility] (BEAKER) (test code = [facility] 1538) [address] POCT-GLUCOSE [id number] 07:21:00 Test Item Value Reference Range Interpretation Comments POC-GLUCOSE METER 137 mg/dL 70-110 H TESTED AT [facility] 6720 (BEAKER) (test code = [facility] 1538) [address] BASIC METABOLIC [id number] 05:10:00 Test Item Value Reference Range Interpretation [...] RED BLOOD CELLS 0 /100 WBC 0-0 ([facility]) (test code = 413) POCT-GLUCOSE [id number] 21:23:00 Test Item Value Reference Range Interpretation Comments POC-GLUCOSE METER 240 mg/dL 70-[address] [facility] 6720 ([facility]) (test code = [facility] 1538) [address] POCT-GLUCOSE [id number] 16:42:00 Test Item Value Reference Range Interpretation Comments POC-GLUCOSE METER 234 mg/dL 70-110 H TESTED AT [place] [address] ([facility]) (test code = [facility] 1538) [address] POCT-GLUCOSE [id number] 13:22:00 Test Item Value Reference Range Interpretation Comments POC-GLUCOSE METER 166 mg/dL 70-110 H TESTED AT [place] [address] ([facility]) (test code = [facility] 1538) [address] RAD, CHEST, 1 VIEW, NON [id number] 09:43:00Reason for exam:->s/p ACBShould this be performed [...] Ring MDReport Verified Date/Time: 05/31/2017 09:43:30 ReadingLocation: [facility] B1 C013X Ortho Consult Reading Room POCT-GLUCOSE [id number] 06:57:00 Test Item Value Reference Range Interpretation Comments POC-GLUCOSE METER 136 mg/dL 70-[address] [facility] 6720 ([facility]) (test code = [facility] 1538) [address] CALCIUM, [id number] 06:41:00 Test Item Value Reference Range Interpretation Comments CALCIUM IONIZED ([facility]) (test 1.10 mmol/L 1.12-1.27 L code = 698) PH, BLOOD (BEAKER) (test code = 7.42 1810) [id number] 06:17:00 Test Item Value Reference Range Interpretation Comments PHOSPHORUS (BEAKER) (test code = 3.3 mg/dL 2.3-4.7 604) [id number] 06:17:00 Test Item Value Reference Range Interpretation Comments MAGNESIUM (BEAKER) (test code = 1.8 mg/dL 1.6-2.6 627) BASIC METABOLIC [id number] 06:17:00 Test Item Value Reference Range Interpretation [...] PATIEN TS. CBC W/PLT COUNT & AUTO [id number] 05:07:00 Test Item Value Reference Range Interpretation [...] PERCENT (BEAKER) (test code = 2801) POCT-GLUCOSE [id number] 20:56:00 Test Item Value Reference Range Interpretation Comments POC-GLUCOSE METER 196 mg/dL 70-[address] [facility] 6720 (BEAKER) (test code = JULIANO REYEZ 1538) [address] POCT-GLUCOSE [id number] 16:42:00 Test Item Value Reference Range Interpretation Comments POC-GLUCOSE METER 196 mg/dL 70-[address] [facility] 6720 (BEAKER) (test code = JULIANO [place] 1538) [address] POCT-GLUCOSE [id number] 11:45:00 Test Item Value Reference Range Interpretation Comments POC-GLUCOSE METER 215 mg/dL 70-[address] [facility] 6720 (BEAKER) (test code = JULIANO [place] 1538) [address] RAD, CHEST, 1 VIEW, NON [id number] 11:15:00Reason for exam:->s/p ACBShould this be performed at the bedside?->YesFINAL REPORT Chest one view compared to May 28, 2017 Discussion: Airspace opacities are seen in both lower lung regions, probably atelectasis. Correlate clinically for infection. I could not exclude small effusions. No pneumothorax. Upper lungs clear. Signed: Jeannette Nava Verified Date/Time: 05/30/2017 11:15:07 Reading Location: [facility] Radiology Reading Room CALCIUM, [id number] 09:21:00 Test Item Value Reference Range Interpretation Comments CALCIUM IONIZED (BEAKER) (test 1.11 mmol/L 1.12-1.27 L code = 698) PH, BLOOD (BEAKER) (test code = 7.36 1810) BASIC METABOLIC [id number] 07:37:00 Test Item Value Reference Range Interpretation [...] S NOT APPLICABLE FOR DIALYSIS PATIEN TS. [id number] 07:28:00 Test Item Value Reference Range Interpretation Comments PHOSPHORUS (BEAKER) (test code = 3.8 mg/dL 2.3-4.7 604) [id number] 07:28:00 Test Item Value Reference Range Interpretation Comments MAGNESIUM (BEAKER) (test code = 1.9 mg/dL 1.6-2.6 627) CBC W/PLT COUNT & AUTO [id number] 07:26:00 Test Item Value Reference Range Interpretation [...] PERCENT (BEAKER) (test code = 2801) POCT-GLUCOSE [id number] 07:21:00 Test Item Value Reference Range Interpretation Comments POC-GLUCOSE METER 146 mg/dL 70-110 H TESTED AT [place] [address] ([facility]) (test code = [facility] [place] [facility] 1538) [address] POCT-GLUCOSE [id number] 22:02:00 Test Item Value Reference Range Interpretation Comments POC-GLUCOSE METER 201 mg/dL 70-110 H TESTED AT [place] [address] ([facility]) (test code = [facility] [place] [facility] 1538) [address] POCT-GLUCOSE [id number] 18:27:00 Test Item Value Reference Range Interpretation Comments POC-GLUCOSE METER 240 mg/dL 70-110 H TESTED AT [place] [address] ([facility]) (test code = [facility] [place] [facility] 1538) [address] POCT-GLUCOSE [id number] 12:13:00 Test Item Value Reference Range Interpretation Comments POC-GLUCOSE METER 193 mg/dL 70-110 H TESTED AT [place] [address] ([facility]) (test code = [facility] [place] [facility] 1538) [address] POCT-GLUCOSE [id number] 09:02:00 Test Item Value Reference Range Interpretation Comments POC-GLUCOSE METER 132 mg/dL 70-110 H TESTED AT [place] [address] ([facility]) (test code = [facility] [place] [facility] 1538) [address] CALCIUM, [id number] 05:42:00 Test Item Value Reference Range Interpretation Comments CALCIUM IONIZED (BEAKER) (test 1.12 mmol/L 1.12-1.27 code = 698) PH, BLOOD (BEAKER) (test code = 7.34 1810) COMPREHENSIVE METABOLIC [id number] 05:33:00 Test Item Value Reference Range Interpretation [...] S NOT APPLICABLE FOR DIALYSIS PATIEN TS. [id number] 05:32:00 Test Item Value Reference Range Interpretation Comments PHOSPHORUS (BEAKER) (test code = 3.6 mg/dL 2.3-4.7 604) [id number] 05:32:00 Test Item Value Reference Range Interpretation Comments MAGNESIUM (BEAKER) (test code = 2.2 mg/dL 1.6-2.6 627) CBC W/PLT COUNT & AUTO [id number] 05:01:00 Test Item Value Reference Range Interpretation [...] (test code = 416) BASOPHILS ABSOLUTE COUNT ([facility]) 0.03 K/ L 0.01-0.08 (test code = 417) IMMATURE GRANULOCYTES-RELATIVE 1 % 0-1 PERCENT ([facility]) (test code = 2801) POCT-GLUCOSE [id number] 21:04:00 Test Item Value Reference Range Interpretation Comments POC-GLUCOSE METER 165 mg/dL 70-110 H TESTED AT [place] [address] ([facility]) (test code = JULIANO [place] 1538) [address] POCT-GLUCOSE [id number] 17:30:00 Test Item Value Reference Range Interpretation Comments POC-GLUCOSE METER 236 mg/dL 70-110 H TESTED AT [place] [address] ([facility]) (test code = JULIANO Osborne [facility] 1538) [address] RAD, CHEST, 1 VIEW, NON [id number] 13:53:00Reason for exam:->assess for ill-defined opacityShould this [...] MDReport Verified Date/Time: 05/28/2017 13:53:03 Reading Location: [address] Radiology Reading Room POCT-GLUCOSE [id number] 11:53:00 Test Item Value Reference Range Interpretation Comments POC-GLUCOSE METER 215 mg/dL 70-110 H TESTED AT [place] [address] ([facility]) (test code = JULIANO [place] 1538) [address] POCT-GLUCOSE [id number] 08:32:00 Test Item Value Reference Range Interpretation Comments POC-GLUCOSE METER 168 mg/dL 70-110 H TESTED AT [place] [address] (BEAKER) (test code = JULIANO [place] 1538) [address] CALCIUM, [id number] 05:44:00 Test Item Value Reference Range Interpretation Comments CALCIUM IONIZED (BEAKER) (test 1.09 mmol/L 1.12-1.27 L code = 698) PH, BLOOD (BEAKER) (test code = 7.38 1810) [id number] 05:44:00 Test Item Value Reference Range Interpretation Comments PHOSPHORUS (BEAKER) (test code = 3.5 mg/dL 2.3-4.7 604) [id number] 05:44:00 Test Item Value Reference Range Interpretation Comments MAGNESIUM (BEAKER) (test code = 1.9 mg/dL 1.6-2.6 627) BASIC METABOLIC [id number] 05:44:00 Test Item Value Reference Range Interpretation [...] PATIEN TS. CBC W/PLT COUNT & AUTO [id number] 05:05:00 Test Item Value Reference Range Interpretation [...] PERCENT (BEAKER) (test code = 2801) POCT-GLUCOSE [id number] 21:03:00 Test Item Value Reference Range Interpretation Comments POC-GLUCOSE METER 173 mg/dL 70-[address] [facility] 6720 (BEAKER) (test code = JULIANO REYEZ 1538) [address] [id number] 18:15:00 Test Item Value Reference Range Interpretation Comments ACTIVATED CLOTTING TIME 147 sec TEST ED AT [place] [address] ([facility]) (test code = JULIANO [place] 441) [address] [id number] 18:15:00 Test Item Value Reference Range Interpretation Comments ACTIVATED CLOTTING TIME 246 sec TEST ED AT [place] [address] ([facility]) (test code = JULIANO Osborne [facility] 441) [address] POCT-GLUCOSE [id number] 12:39:00 Test Item Value Reference Range Interpretation Comments POC-GLUCOSE METER 219 mg/dL 70-110 H TESTED AT [place] [address] ([facility]) (test code = JULIANO Osborne [facility] 1538) [address] RAD, CHEST, 1 VIEW, NON [id number] 10:11:00Reason for exam:->pl effusionShould this be performed at the bedside?->YesFINAL REPORT Chest one view compared to May 26 Discussion: There is cardiac prominence. Upper lungs are clear. Ill-defined basilar densities are similar probably atelectasis. No gross effusion or pneumothorax with bilateral chest tubes in place. Signed: Jeannette Nava Verified Date/Time: 05/27/2017 10:11:44 Reading Location: [facility] Radiology Reading Room POCT-GLUCOSE METER 2017-05-27 07:05:00 Test Item Value Reference Range Interpretation Comments POC-GLUCOSE METER 167 mg/dL 70-110 H TESTED AT [place] [address] ([facility]) (test code = JULIANO Osborne [facility] 1538) [address] CALCIUM, [id number] 06:20:00 Test Item Value Reference Range Interpretation Comments CALCIUM IONIZED (AKER) (test 0.98 mmol/L 1.12-1.27 L code = 698) PH, BLOOD ([facility]) (test code = 7.50 1810) [id number] 04:56:00 Test Item Value Reference Range Interpretation Comments PHOSPHORUS (BEAKER) (test code = 2.6 mg/dL 2.3-4.7 604) [id number] 04:56:00 Test Item Value Reference Range Interpretation Comments MAGNESIUM (BEAKER) (test code = 2.0 mg/dL 1.6-2.6 627) BASIC METABOLIC [id number] 04:56:00 Test Item Value Reference Range Interpretation [...] PATIEN TS. CBC W/PLT COUNT & AUTO [id number] 04:36:00 Test Item Value Reference Range Interpretation [...] PERCENT (BEAKER) (test code = 2801) POCT-GLUCOSE [id number] 21:29:00 Test Item Value Reference Range Interpretation Comments POC-GLUCOSE METER 147 mg/dL 70-110 H TEST[facility] [place] [address] [facility] (test code = JULIANO [place] 1538) [address] POCT-GLUCOSE [id number] 17:51:00 Test Item Value Reference Range Interpretation Comments POC-GLUCOSE METER 224 mg/dL 70-110 H TESTED AT [place] [address] ([facility]) (test code = JULIANO [place] 1538) [address] POCT-GLUCOSE [id number] 13:53:00 Test Item Value Reference Range Interpretation Comments POC-GLUCOSE METER 182 mg/dL 70-110 H TESTED AT [place] [address] ([facility]) (test code = JULIANO [place] 1538) [address] RAD, CHEST, 1 VIEW, NON [id number] 08:44:00Reason for exam:->pl effusionShould this be performed [...] tube. No other significant change. Signed: Olaf Ortegaeport Verified Date/Time: 05/26/2017 08:44:25 Reading Location: [address] Radiology Reading Room POCT- GLUCOSE [id number] 07:43:00 Test Item Value Reference Range Interpretation Comments POC-GLUCOSE METER 113 mg/dL 70-[address] [facility] 6720 (BEAKER) (test code = JULIANO Osborne [facility] 1538) [address] CALCIUM, [id number] 06:31:00 Test Item Value Reference Range Interpretation Comments CALCIUM IONIZED (BEAKER) (test 1.07 mmol/L 1.12-1.27 L code = 698) PH, BLOOD (BEAKER) (test code = 7.38 1810) [id number] 04:51:00 Test Item Value Reference Range Interpretation Comments PHOSPHORUS (BEAKER) (test code = 3.2 mg/dL 2.3-4.7 604) [id number] 04:51:00 Test Item Value Reference Range Interpretation Comments MAGNESIUM (BEAKER) (test code = 2.1 mg/dL 1.6-2.6 627) BASIC METABOLIC [id number] 04:51:00 Test Item Value Reference Range Interpretation [...] PATIEN TS. CBC W/PLT COUNT & AUTO [id number] 04:27:00 Test Item Value Reference Range Interpretation [...] PERCENT (BEAKER) (test code = 2801) POCT-GLUCOSE [id number] 23:48:00 Test Item Value Reference Range Interpretation Comments POC-GLUCOSE METER 123 mg/dL 70-[address] [facility] 67 (BEAKER) (test code = [facility] 1538) [address] POCT-GLUCOSE [id number] 16:46:00 Test Item Value Reference Range Interpretation Comments POC-GLUCOSE METER 178 mg/dL 70-110 H TESTED AT [place] [address] (BEAKER) (test code = [facility] 1538) [address] BASIC METABOLIC [id number] 05:53:00 Test Item Value Reference Range Interpretation [...] S NOT APPLICABLE FOR DIALYSIS PATIEN TS. [id number] 05:52:00 Test Item Value Reference Range Interpretation Comments PHOSPHORUS (BEAKER) (test code = 4.2 mg/dL 2.3-4.7 604) [id number] 05:52:00 Test Item Value Reference Range Interpretation Comments MAGNESIUM (BEAKER) (test code = 2.3 mg/dL 1.6-2.6 627) CALCIUM, [id number] 05:27:00 Test Item Value Reference Range Interpretation Comments CALCIUM IONIZED (BEAKER) (test 1.12 mmol/L 1.12-1.27 code = 698) PH, BLOOD (BEAKER) (test code = 7.38 1810) CBC W/PLT COUNT & AUTO [id number] 05:07:00 Test Item Value Reference Range Interpretation [...] = 2801) RAD, CHEST, 1 VIEW, NON [id number] 04:45:00Reason for exam:->pl effusionShould this be performed at the bedside?->YesFINAL REPORT RAD, CHEST, 1 VIEW, NON DEPT INDICATION: pl effusion COMPARISON:Prior day's exam FINDINGS: Portable frontal view of the chest. IMPRESSION: Support Lines: Stable.Lungs and pleura: Unchanged airspace and pleural opacities. No pneumothorax.Heart and mediastinum: Stable contours. Stable surgical changes.Additional findings: None. Signed: JR Boswell Robert MDReport Verified Date/Time: 05/25/2017 04:45:08 Reading Location: [facility] C013Y CT Body Reading Room POCT-GLUCOSE [id number] 01:52:00 Test Item Value Reference Range Interpretation Comments POC-GLUCOSE METER 126 mg/dL 70-[address] [facility] 67 ([facility]) (test code = JULIANO Osborne [place] 1538) [address] POCT-GLUCOSE [id number] 13:07:00 Test Item Value Reference Range Interpretation Comments POC-GLUCOSE METER 118 mg/dL 70-[address] [facility] 6720 ([facility]) (test code = JULIANO [place] 1538) [address] BRONCHIAL CULTURE + GRAM [id number] 11:35:00 Test Item Value Reference Range Interpretation Comments CULTURE (AKER) (test code = 1095) Amikacin (test code [...] <1+ gram (BEAKER) (test code = positive 091555) cocci in pairs GRAM STAIN RESULT 1+ gram (BEAKER) (test code = variable rods 611987) 1+ Normal respiratory todd presentRAD, CHEST, 1 VIEW, NON [id number] 06:50:00Reason for exam:->pl effusionShould this be performed at the bedside?->YesFINAL REPORT RAD, CHEST, 1 VIEW, NON DEPT INDICATION: pl effusion COMPARISON:Prior day's exam FINDINGS: Portable frontal view of the chest. IMPRESSION: Support Lines: Stable.Lungs and pleura: Unchanged airspace and pleural opacities. No pneumothorax.Heart and mediastinum: Stable contours. Stable surgical changes.Additional findings: None. Signed: JR Boswell Robert MDReport Verified Date/Time: 05/24/2017 06:50:08 Reading Location: [facility] C013Y CT Body Reading Room BASIC METABOLIC [id number] 04:19:00 Test Item Value Reference Range Interpretation [...] NOT APPLICABLE FOR DIALYSIS PATIEN TS. CALCIUM, [id number] 04:16:00 Test Item Value Reference Range Interpretation Comments CALCIUM IONIZED (BEAKER) (test 1.06 mmol/L 1.12-1.27 L code = 698) PH, BLOOD (BEAKER) (test code = 7.40 1810) [id number] 04:11:00 Test Item Value Reference Range Interpretation Comments PHOSPHORUS (BEAKER) (test code = 6.0 mg/dL 2.3-4.7 H 604) [id number] 04:11:00 Test Item Value Reference Range Interpretation Comments MAGNESIUM (BEAKER) (test code = 2.4 mg/dL 1.6-2.6 627) CBC W/PLT COUNT & AUTO [id number] 03:50:00 Test Item Value Reference Range Interpretation [...] PERCENT (BEAKER) (test code = 2801) POCT-GLUCOSE [id number] 20:45:00 Test Item Value Reference Range Interpretation Comments POC-GLUCOSE METER 143 mg/dL 70-[address] [facility] [address] ([facility]) (test code = [facility] [facility] 1538) [address] POCT-GLUCOSE [id number] 20:45:00 Test Item Value Reference Range Interpretation Comments POC-GLUCOSE METER 145 mg/dL 70-110 H TESTED AT [place] [address] ([facility]) (test code = [facility] 1538) [address] [id number] 13:37:00 Test Item Value Reference Range Interpretation Comments PREALBUMIN (BEAKER) 10 mg/dL 14-45 L Specimen slightly (test code = 586) hemolyzed OXYGEN SATURATION, [id number] 12:31:00 Test Item Value Reference Range Interpretation Comments O2 SATURATION (MEASURED) (BEAKER) 94.5 % (test code = 1455) [id number] 11:02:00 Test Item Value Reference Range Interpretation Comments PREALBUMIN (BEAKER) (test code = 10 mg/dL 14-45 L 586) RAD, CHEST, 1 VIEW, NON [id number] 05:14:00while patient is intubated or has chest [...] ALEXANDREeport Verified Date/Time: 05/23/2017 05:14:04 Reading Location: [facility] B1 C013Y CT Body Reading Room BASIC METABOLIC [id number] 03:48:00 Test Item Value Reference Range Interpretation [...] S NOT APPLICABLE FOR DIALYSIS PATIEN TS. [id number] 03:46:00 Test Item Value Reference Range Interpretation Comments MAGNESIUM (BEAKER) 2.4 mg/dL 1.6-2.6 Specimen slightly (test code = 627) hemolyzed [id number] 03:46:00 Test Item Value Reference Range Interpretation Comments PHOSPHORUS (BEAKER) 6.5 mg/dL 2.3-4.7 H Specimen slightly (test code = 604) hemolyzed CBC W/PLT COUNT & AUTO [id number] 03:26:00 Test Item Value Reference Range Interpretation [...] (BEAKER) (test code = 2801) BLOOD GAS, [id number] 03:18:00 Test Item Value Reference Range Interpretation [...] (test code = 1819) 36.0 % CALCIUM, [id number] 16:32:00 Test Item Value Reference Range Interpretation Comments CALCIUM IONIZED (BEAKER) (test 1.11 mmol/L 1.12-1.27 L code = 698) PH, BLOOD (BEAKER) (test code = 7.39 1810) BASIC METABOLIC [id number] 15:43:00 Test Item Value Reference Range Interpretation [...] NOT APPLICABLE FOR DIALYSIS PATIEN TS. POCT-GLUCOSE [id number] 12:53:00 Test Item Value Reference Range Interpretation Comments POC-GLUCOSE METER 118 mg/dL 70-[address] [facility] 6720 (BEAKER) (test code = [place] 1533) [address] BLOOD GAS, [id number] 10:42:00 Test Item Value Reference Range Interpretation [...] (test code = 1819) 40.0 % POCT-GLUCOSE [id number] 06:46:00 Test Item Value Reference Range Interpretation Comments POC-GLUCOSE METER 106 mg/dL 70-[address] [facility] 6720 (BEAKER) (test code = JULIANO [facility] 1538) [address] RAD, CHEST, 1 VIEW, NON [id number] 05:05:00while patient is intubated or has chest [...] MDReport Verified Date/Time: 05/22/2017 05:05:00 Reading Location: [facility] C013Y CT Body ReadingRoom BASIC METABOLIC [id number] 05:00:00 Test Item Value Reference Range Interpretation [...] S NOT APPLICABLE FOR DIALYSIS PATIEN TS. [id number] 04:41:00 Test Item Value Reference Range Interpretation Comments PHOSPHORUS (BEAKER) (test code = 6.4 mg/dL 2.3-4.7 H 604) [id number] 04:41:00 Test Item Value Reference Range Interpretation Comments MAGNESIUM (BEAKER) (test code = 2.6 mg/dL 1.6-2.6 627) CALCIUM, [id number] 04:26:00 Test Item Value Reference Range Interpretation Comments CALCIUM IONIZED (BEAKER) (test 1.09 mmol/L 1.12-1.27 L code = 698) PH, BLOOD (BEAKER) (test code = 7.40 1810) OXYGEN SATURATION, [id number] 04:25:00 Test Item Value Reference Range Interpretation Comments O2 SATURATION (MEASURED) (BEAKER) 77.0 % (test code = 1455) CBC W/PLT COUNT & AUTO [id number] 04:17:00 Test Item Value Reference Range Interpretation [...] code = 2801) LACTIC ACID, ARTERIAL, WHOLE [id number] 00:07:00 Test Item Value Reference Range Interpretation Comments LACTATE BLOOD 1.0 mmol/L 0.5-2.2 Specimen sligh tly ARTERIAL (2) (BEAKER) hemoly zed (test code = 2874) Effective 08/02/2015: Units/Reference Range ChangeNew: 0.5-2.2 mmol/L Previous: 5-20 mg/dLPOCT-GLUCOSE [id number] 23:47:00 Test Item Value Reference Range Interpretation Comments POC-GLUCOSE METER 180 mg/dL 70-[address] [facility] 6720 (BEAKER) (test code = [place] 1538) [address] BLOOD GAS, [id number] 23:46:00 Test Item Value Reference Range Interpretation [...] code = 1819) 100.0 % SODIUM NA-STAT [id number] 23:46:00 Test Item Value Reference Range Interpretation Comments SODIUM (BEAKER) (test code = 381) 134 meq/L 135-148 L GLUCOSE-STAT [id number] 23:46:00 Test Item Value Reference Range Interpretation Comments GLUCOSE RANDOM (BEAKER) (test code 119 mg/dL 70-110 H = 652) HGB/HCT (H&H) - STAT [id number] 23:46:00 Test Item Value Reference Range Interpretation Comments HEMOGLOBIN (BEAKER) (test code = 8.8 g/dL 12.0-15.0 L 410) HEMATOCRIT (BEAKER) (test code = 26.0 % 36.0-45.0 L 411) OXYGEN SATURATION, [id number] 23:45:00 Test Item Value Reference Range Interpretation Comments O2 SATURATION (MEASURED) (BEAKER) 68.1 % (test code = 1455) POTASSIUM-STAT [id number] 23:45:00 Test Item Value Reference Range Interpretation Comments POTASSIUM (BEAKER) (test code = 5.5 meq/L 3.6-5.5 379) POCT-GLUCOSE [id number] 20:58:00 Test Item Value Reference Range Interpretation Comments POC-GLUCOSE METER 133 mg/dL 70-110 H TESTED AT [place] [address] ([facility]) (test code = J[place]IANO [place]borne [place] 1538) [address] POCT-GLUCOSE [id number] 17:58:00 Test Item Value Reference Range Interpretation Comments POC-GLUCOSE METER 210 mg/dL 70-110 H TESTED AT [place] [address] ([facility]) (test code = JULIANO Osborne [place] 1538) [address] POCT-GLUCOSE [id number] 17:58:00 Test Item Value Reference Range Interpretation Comments POC-GLUCOSE METER 211 mg/dL 70-110 H TESTED AT [place] [address] ([facility]) (test code = JULIANO Osborne [place] 1538) [address] POCT-GLUCOSE [id number] 17:58:00 Test Item Value Reference Range Interpretation Comments POC-GLUCOSE METER 232 mg/dL 70-110 H TESTED AT [place] [address] ([facility]) (test code = J[place]IANO [place]borne [place] 1538) [address] POCT-GLUCOSE [id number] 17:58:00 Test Item Value Reference Range Interpretation Comments POC-GLUCOSE METER 262 mg/dL 70-110 H TESTED AT [place] [address] ([facility]) (test code = JULIANO Osborne [place] 1538) [address] BLOOD GAS, [id number] 17:01:00 Test Item Value Reference Range Interpretation [...] (test code = 1819) 60.0 % POTASSIUM-STAT [id number] 17:00:00 Test Item Value Reference Range Interpretation Comments POTASSIUM (BEAKER) (test code = 4.8 meq/L 3.6-5.5 379) POCT-GLUCOSE [id number] 15:52:00 Test Item Value Reference Range Interpretation Comments POC-GLUCOSE METER 267 mg/dL 70-[address] [facility] 67 (BEAKER) (test code = [facility] 1538) [address] POCT-GLUCOSE [id number] 14:42:00 Test Item Value Reference Range Interpretation Comments POC-GLUCOSE METER 231 mg/dL 70-110 H TESTED AT [place] [address] (BEAKER) (test code = [facility] 1538) [address] BODY FLUID CELL COUNT WITH [id number] 14:41:00 Test Item Value Reference Range Interpretation [...] Tube (test code = 2873) BASIC METABOLIC [id number] 14:11:00 Test Item Value Reference Range Interpretation [...] S NOT APPLICABLE FOR DIALYSIS PATIEN TS. [id number] 14:08:00 Test Item Value Reference Range Interpretation Comments PHOSPHORUS (BEDANIELA) (test code = 7.2 mg/dL 2.3-4.7 H 604) [id number] 14:08:00 Test Item Value Reference Range Interpretation Comments MAGNESIUM (BEDANIELA) (test code = 2.6 mg/dL 1.6-2.6 627) POCT-GLUCOSE [id number] 12:49:00 Test Item Value Reference Range Interpretation Comments POC-GLUCOSE METER 224 mg/dL 70-[address] [facility] 67 ([facility]) (test code = JULIANO Osborne [facility] 1538) [address] POCT-GLUCOSE [id number] 12:49:00 Test Item Value Reference Range Interpretation Comments POC-GLUCOSE METER 248 mg/dL 70-[address] [facility] 67 ([facility]) (test code = [facility] [place] [facility] 1538) [address] RAD, CHEST, 1 VIEW, NON [id number] 12:32:00Reason for exam:->re-intubationShould this be performed at [...] MDReport Verified Date/Time: 05/21/2017 12:32:08 Reading Location: [facility] Reading Room POTASSIUM-STAT [id number] 12:28:00 Test Item Value Reference Range Interpretation Comments POTASSIUM (BEAKER) (test code = 5.5 meq/L 3.6-5.5 379) BLOOD GAS, [id number] 12:28:00 Test Item Value Reference Range Interpretation [...] code = 1819) 100.0 % BLOOD GAS, [id number] 10:53:00 Test Item Value Reference Range Interpretation [...] 36.0 % RAD, CHEST, 1 VIEW, NON [id number] 08:46:00while patient is intubated or has chest [...] MDReport Verified Date/Time: 05/21/2017 08:46:27 Reading Location: [facility] Radiology Reading Room BLOOD GAS, [id number] 05:41:00 Test Item Value Reference Range Interpretation [...] (BEAKER) (test code = 1819) 40 CALCIUM, [id number] 04:35:00 Test Item Value Reference Range Interpretation Comments CALCIUM IONIZED (BEAKER) (test 1.13 mmol/L 1.12-1.27 code = 698) PH, BLOOD (BEAKER) (test code = 7.32 1810) BLOOD GAS, [id number] 04:28:00 Test Item Value Reference Range Interpretation [...] (BEAKER) (test code = 1819) 40.0 % [id number] 04:20:00 Test Item Value Reference Range Interpretation Comments PHOSPHORUS (BEAKER) (test code = 6.2 mg/dL 2.3-4.7 H 604) [id number] 04:20:00 Test Item Value Reference Range Interpretation Comments MAGNESIUM (BEAKER) (test code = 2.4 mg/dL 1.6-2.6 627) HEPATIC FUNCTION [id number] 04:20:00 Test Item Value Reference Range Interpretation [...] = 11 U/L 6-55 347) BASIC METABOLIC [id number] 04:20:00 Test Item Value Reference Range Interpretation [...] APPLICABLE FOR DIALYSIS PATIEN TS. OXYGEN SATURATION, [id number] 04:18:00 Test Item Value Reference Range Interpretation Comments O2 SATURATION (MEASURED) (BEAKER) 68.0 % (test code = 1455) LACTIC ACID, ARTERIAL, WHOLE [id number] 04:12:00 Test Item Value Reference Range Interpretation Comments LACTATE BLOOD ARTERIAL (2) 1.0 mmol/L 0.5-2.2 (BEAKER) (test code = 2874) Effective 08/02/2015: Units/Reference Range ChangeNew: 0.5-2.2 mmol/L Previous: 5-20 mg/dLCBC W/PLT COUNT & AUTO [id number] 04:00:00 Test Item Value Reference Range Interpretation [...] (BEAKER) (test code = 2801) BLOOD GAS, [id number] 00:06:00 Test Item Value Reference Range Interpretation [...] (BEAKER) (test code = 1819) 40.0 % [id number] 18:55:00 Test Item Value Reference Range Interpretation Comments PHOSPHORUS (BEAKER) (test code = 4.8 mg/dL 2.3-4.7 H 604) [id number] 18:55:00 Test Item Value Reference Range Interpretation Comments MAGNESIUM (BEAKER) (test code = 2.3 mg/dL 1.6-2.6 627) BASIC METABOLIC [id number] 18:55:00 Test Item Value Reference Range Interpretation [...] DIALYSIS PATIEN TS. LACTIC ACID, ARTERIAL, WHOLE [id number] 18:53:00 Test Item Value Reference Range Interpretation Comments LACTATE BLOOD 0.9 mmol/L 0.5-2.2 Specimen sligh tly ARTERIAL (2) (BEAKER) hemoly zed (test code = 2874) Effective 08/02/2015: Units/Reference Range ChangeNew: 0.5-2.2 mmol/L Previous: 5-20 mg/dLRAD, CHEST, 1 VIEW, NON [id number] 18:44:00Reason for exam:- >postop cardiacShould this be [...] MDReport Verified Date/Time: 05/20/2017 18:44:30 Reading Location: [address] Consult Reading Room Electronically signed by: MIGUEL BHAKTA M.D. on05/20/2017 06:44 PMCBC W/PLT COUNT & AUTO [id number] 18:38:00 Test Item Value Reference Range Interpretation [...] (BEAKER) (test code = 2801) OXYGEN SATURATION, [id number] 18:36:00 Test Item Value Reference Range Interpretation Comments O2 SATURATION (MEASURED) (BEAKER) 72.5 % (test code = 1455) From distal port of IJ central venous catheterSODIUM NA-STAT [id number] 18:30:00 Test Item Value Reference Range Interpretation Comments SODIUM (BEAKER) (test code = 381) 132 meq/L 135-148 L HGB/HCT (H&H) - STAT [id number] 18:30:00 Test Item Value Reference Range Interpretation Comments HEMOGLOBIN (BEAKER) (test code = 9.4 g/dL 12.0-15.0 L 410) HEMATOCRIT (BEAKER) (test code = 28.0 % 36.0-45.0 L 411) GLUCOSE-STAT [id number] 18:30:00 Test Item Value Reference Range Interpretation Comments GLUCOSE RANDOM (BEAKER) (test code 159 mg/dL 70-110 H = 652) BLOOD GAS, [id number] 18:30:00 Test Item Value Reference Range Interpretation [...] (test code = 1819) 60.0 % CALCIUM, [id number] 18:30:00 Test Item Value Reference Range Interpretation Comments CALCIUM IONIZED (BEAKER) (test 0.94 mmol/L 1.12-1.27 L code = 698) PH, BLOOD (BEAKER) (test code = 7.34 1810) POTASSIUM-STAT [id number] 18:28:00 Test Item Value Reference Range Interpretation [...] 62.8 MM 55.0-65.0 (test code = 1413) [facility] ([facility]) (test 0.0 % 0.0-5.0 code = 1414) [id number] 17:53:00 Test Item Value Reference Range Interpretation Comments ACTIVATED CLOTTING TIME 103 sec TEST ED AT [place] [address] ([facility]) (test code = [place]DA [place] 441) [address] [id number] 17:53:00 Test Item Value Reference Range Interpretation Comments ACTIVATED CLOTTING TIME 466 sec TEST ED AT [place] [address] ([facility]) (test code = [place] 441) [address] [id number] 17:53:00 Test Item Value Reference Range Interpretation Comments ACTIVATED CLOTTING TIME 543 sec TEST ED AT [place] [address] ([facility]) (test code = [place] 441) [address] [id number] 17:53:00 Test Item Value Reference Range Interpretation Comments ACTIVATED CLOTTING TIME 549 sec TEST ED AT [place] [address] ([facility]) (test code = [place] 441) [address] [id number] 17:53:00 Test Item Value Reference Range Interpretation Comments ACTIVATED CLOTTING TIME 632 sec TEST ED AT [place] [address] ([facility]) (test code = [place] 441) [address] [id number] 17:53:00 Test Item Value Reference Range Interpretation Comments ACTIVATED CLOTTING TIME 494 sec TEST ED AT [place] [address] ([facility]) (test code = [place] 441) [address] [id number] 17:53:00 Test Item Value Reference Range Interpretation Comments ACTIVATED CLOTTING TIME 587 sec TEST ED AT [place] [address] ([facility]) (test code = [place] 441) [address] [id number] 17:53:00 Test Item Value Reference Range Interpretation Comments ACTIVATED CLOTTING TIME 626 sec TEST ED AT [place] [address] ([facility]) (test code = [place]DA [place] 441) [address] [id number] 17:52:00 Test Item Value Reference Range Interpretation Comments ACTIVATED CLOTTING TIME 808 sec TEST ED AT [place] [address] ([facility]) (test code = [place] 441) [address] [id number] 16:54:00 Test Item Value Reference Range Interpretation Comments PARTIAL THROMBOPLASTIN TIME 40.2 seconds 22.5-36.0 H (BEAKER) (test code = 760) [id number] 16:53:00 Test Item Value Reference Range Interpretation Comments FIBRINOGEN LEVEL (BEAKER) (test 306 mg/dl 225-434 code = 658) PROTHROMBIN [id number] 16:50:00 Test Item Value Reference Range Interpretation Comments PROTIME (BEAKER) (test code = 19.6 seconds 11.7-14.7 H 759) INR (BEAKER) (test code = 370) 1.7 <=5.9 RECOMMENDED COUMADIN/WARFARIN INR THERAPY RANGESSTANDARD DOSE: 2.0 - 3.0 Includes: PROPHYLAXIS forvenous thrombosis, systemic embolization; TREATMENT for venous thrombosis and/or pulmonary embolus.HIGH RISK: Target INR is 2.5-3.5 for patients with mechanical heart valves.PLATELET [id number] 16:45:00 Test Item Value Reference Range Interpretation Comments PLATELET COUNT (BEAKER) (test 136 K/CU MM 150-450 L code = 756) POTASSIUM-STAT [id number] 16:15:00 Test Item Value Reference Range Interpretation Comments POTASSIUM (BEAKER) (test code = 4.9 meq/L 3.6-5.5 379) BLOOD GAS, [id number] 16:15:00 Test Item Value Reference Range Interpretation [...] code = 1819) 100.0 % SODIUM NA-STAT [id number] 16:15:00 Test Item Value Reference Range Interpretation Comments SODIUM (BEAKER) (test code = 381) 131 meq/L 135-148 L GLUCOSE-STAT [id number] 16:15:00 Test Item Value Reference Range Interpretation Comments GLUCOSE RANDOM (BEAKER) (test code 198 mg/dL 70-110 H = 652) HGB/HCT (H&H) - STAT [id number] 16:15:00 Test Item Value Reference Range Interpretation Comments HEMOGLOBIN (BEAKER) (test code = 7.5 g/dL 12.0-15.0 L 410) HEMATOCRIT (BEAKER) (test code = 22.0 % 36.0-45.0 L 411) CALCIUM, [id number] 16:14:00 Test Item Value Reference Range Interpretation Comments CALCIUM IONIZED (BEAKER) (test 0.91 mmol/L 1.12-1.27 L code = 698) PH, BLOOD (BEAKER) (test code = 7.39 1810) BLOOD GAS, [id number] 15:39:00 Test Item Value Reference Range Interpretation [...] code = 1819) 70.0 % SODIUM NA-STAT [id number] 15:39:00 Test Item Value Reference Range Interpretation Comments SODIUM (BEAKER) (test code = 381) 131 meq/L 135-148 L GLUCOSE-STAT [id number] 15:39:00 Test Item Value Reference Range Interpretation Comments GLUCOSE RANDOM (BEAKER) (test code 186 mg/dL 70-110 H = 652) HGB/HCT (H&H) - STAT [id number] 15:39:00 Test Item Value Reference Range Interpretation Comments HEMOGLOBIN (BEAKER) (test code = 7.5 g/dL 12.0-15.0 L 410) HEMATOCRIT (BEAKER) (test code = 22.0 % 36.0-45.0 L 411) POTASSIUM-STAT [id number] 15:38:00 Test Item Value Reference Range Interpretation Comments POTASSIUM (BEAKER) (test code = 5.3 meq/L 3.6-5.5 379) BLOOD GAS, [id number] 15:24:00 Test Item Value Reference Range Interpretation [...] code = 1819) 70.0 % SODIUM NA-STAT [id number] 15:24:00 Test Item Value Reference Range Interpretation Comments SODIUM (BEAKER) (test code = 381) 130 meq/L 135-148 L GLUCOSE-STAT [id number] 15:24:00 Test Item Value Reference Range Interpretation Comments GLUCOSE RANDOM (BEAKER) (test code 189 mg/dL 70-110 H = 652) HGB/HCT (H&H) - STAT [id number] 15:24:00 Test Item Value Reference Range Interpretation Comments HEMOGLOBIN (BEAKER) (test code = 6.7 g/dL 12.0-15.0 L 410) HEMATOCRIT (BEAKER) (test code = 20.0 % 36.0-45.0 L 411) POTASSIUM-STAT [id number] 15:23:00 Test Item Value Reference Range Interpretation Comments POTASSIUM (BEAKER) (test code = 5.4 meq/L 3.6-5.5 379) BLOOD GAS, [id number] 15:07:00 Test Item Value Reference Range Interpretation [...] code = 1819) 70.0 % SODIUM NA-STAT [id number] 15:07:00 Test Item Value Reference Range Interpretation Comments SODIUM (BEAKER) (test code = 381) 129 meq/L 135-148 L GLUCOSE-STAT [id number] 15:07:00 Test Item Value Reference Range Interpretation Comments GLUCOSE RANDOM (BEAKER) (test code 172 mg/dL 70-110 H = 652) HGB/HCT (H&H) - STAT [id number] 15:07:00 Test Item Value Reference Range Interpretation Comments HEMOGLOBIN (BEAKER) (test code = 7.1 g/dL 12.0-15.0 L 410) HEMATOCRIT (BEAKER) (test code = 21.0 % 36.0-45.0 L 411) POTASSIUM-STAT [id number] 15:04:00 Test Item Value Reference Range Interpretation Comments POTASSIUM (BEAKER) (test code = 5.0 meq/L 3.6-5.5 379) BLOOD GAS, [id number] 14:21:00 Test Item Value Reference Range Interpretation [...] code = 1819) 70.0 % SODIUM NA-STAT [id number] 14:21:00 Test Item Value Reference Range Interpretation Comments SODIUM (BEAKER) (test code = 381) 133 meq/L 135-148 L GLUCOSE-STAT [id number] 14:21:00 Test Item Value Reference Range Interpretation Comments GLUCOSE RANDOM (BEAKER) (test code 160 mg/dL 70-110 H = 652) HGB/HCT (H&H) - STAT [id number] 14:21:00 Test Item Value Reference Range Interpretation Comments HEMOGLOBIN (BEAKER) (test code = 7.5 g/dL 12.0-15.0 L 410) HEMATOCRIT (BEAKER) (test code = 22.0 % 36.0-45.0 L 411) POTASSIUM-STAT [id number] 14:20:00 Test Item Value Reference Range Interpretation Comments POTASSIUM (BEAKER) (test code = 4.7 meq/L 3.6-5.5 379) BLOOD GAS, [id number] 13:58:00 Test Item Value Reference Range Interpretation [...] code = 1819) 80.0 % SODIUM NA-STAT [id number] 13:58:00 Test Item Value Reference Range Interpretation Comments SODIUM (BEAKER) (test code = 381) 132 meq/L 135-148 L GLUCOSE-STAT [id number] 13:58:00 Test Item Value Reference Range Interpretation Comments GLUCOSE RANDOM (BEAKER) (test code 166 mg/dL 70-110 H = 652) HGB/HCT (H&H) - STAT [id number] 13:58:00 Test Item Value Reference Range Interpretation Comments HEMOGLOBIN (BEAKER) (test code = 7.5 g/dL 12.0-15.0 L 410) HEMATOCRIT (BEAKER) (test code = 22.0 % 36.0-45.0 L 411) POTASSIUM-STAT [id number] 13:57:00 Test Item Value Reference Range Interpretation Comments POTASSIUM (BEAKER) (test code = 4.7 meq/L 3.6-5.5 379) BLOOD GAS, [id number] 13:35:00 Test Item Value Reference Range Interpretation [...] (test code = 1819) 80.0 % GLUCOSE-STAT [id number] 13:35:00 Test Item Value Reference Range Interpretation Comments GLUCOSE RANDOM (BEAKER) (test code 130 mg/dL 70-110 H = 652) HGB/HCT (H&H) - STAT [id number] 13:35:00 Test Item Value Reference Range Interpretation Comments HEMOGLOBIN (BEAKER) (test code = 6.7 g/dL 12.0-15.0 L 410) HEMATOCRIT (BEAKER) (test code = 20.0 % 36.0-45.0 L 411) SODIUM NA-STAT [id number] 13:35:00 Test Item Value Reference Range Interpretation Comments SODIUM (BEAKER) (test code = 381) 133 meq/L 135-148 L POTASSIUM-STAT [id number] 13:34:00 Test Item Value Reference Range Interpretation Comments POTASSIUM (BEAKER) (test code = 4.2 meq/L 3.6-5.5 379) BLOOD GAS, [id number] 13:16:00 Test Item Value Reference Range Interpretation [...] code = 1819) 80.0 % SODIUM NA-STAT [id number] 13:16:00 Test Item Value Reference Range Interpretation Comments SODIUM (BEAKER) (test code = 381) 133 meq/L 135-148 L HGB/HCT (H&H) - STAT [id number] 13:16:00 Test Item Value Reference Range Interpretation Comments HEMOGLOBIN (BEAKER) (test code = 6.3 g/dL 12.0-15.0 L 410) HEMATOCRIT (BEAKER) (test code = 19.0 % 36.0-45.0 L 411) CALCIUM, [id number] 13:15:00 Test Item Value Reference Range Interpretation Comments CALCIUM IONIZED (BEAKER) (test 0.98 mmol/L 1.12-1.27 L code = 698) PH, BLOOD (BEAKER) (test code = 7.34 1810) BLOOD GAS, [id number] 13:15:00 Test Item Value Reference Range Interpretation [...] (test code = 1819) 80.0 % GLUCOSE-STAT [id number] 13:14:00 Test Item Value Reference Range Interpretation Comments GLUCOSE RANDOM (BEAKER) (test code = 92 mg/dL 70-110 652) POTASSIUM-STAT [id number] 13:14:00 Test Item Value Reference Range Interpretation Comments POTASSIUM (BEAKER) (test code = 3.9 meq/L 3.6-5.5 379) BLOOD GAS, [id number] 10:54:00 Test Item Value Reference Range Interpretation [...] 1819) 100.0 % HGB/HCT (H&H) - STAT [id number] 10:54:00 Test Item Value Reference Range Interpretation Comments HEMOGLOBIN (BEAKER) (test code = 9.3 g/dL 12.0-15.0 L 410) HEMATOCRIT (BEAKER) (test code = 27.0 % 36.0-45.0 L 411) SODIUM NA-STAT [id number] 10:54:00 Test Item Value Reference Range Interpretation Comments SODIUM (BEAKER) (test code = 381) 132 meq/L 135-148 L GLUCOSE-STAT [id number] 10:52:00 Test Item Value Reference Range Interpretation Comments GLUCOSE RANDOM (BEAKER) (test code = 94 mg/dL 70-110 652) POTASSIUM-STAT [id number] 10:52:00 Test Item Value Reference Range Interpretation Comments POTASSIUM (BEAKER) (test code = 4.0 meq/L 3.6-5.5 379) HEMOGLOBIN [id number] 09:50:00 Test Item Value Reference Range Interpretation Comments HEMOGLOBIN A1C (BEAKER) (test code = 10.6 % 4.3-6.1 H 368) PLATELET AGGREGATION: FUNCTION [id number] 08:27:00 Test Item Value Reference Range Interpretation Comments WEAK ADP 63 % 60-91 RESULT(BEAKER) (test code = 2135) PLATELET FUNCTION 60-100% indicates SCREEN INTERP (BEAKER) normal platelet (test code = 2173) function [id number] Toshia Post MD (BEAKER) (test code = (electronic signature) 5669) PLATELET COUNT AGG 198 K/CU MM 150-450 (BEAKER) (test code = 2656) for patients on clopidogrel in past two weeksPOCT-GLUCOSE [id number] 08:11:00 Test Item Value Reference Range Interpretation Comments POC-GLUCOSE METER 116 mg/dL 70-[address] [facility] 6720 (BEAKER) (test code = JULIANO [place] 1538) [address] [id number] 07:10:00 Test Item Value Reference Range Interpretation Comments PHOSPHORUS (BEAKER) (test code = 4.5 mg/dL 2.3-4.7 604) [id number] 07:10:00 Test Item Value Reference Range Interpretation Comments MAGNESIUM (BEAKER) (test code = 2.1 mg/dL 1.6-2.6 627) BASIC METABOLIC [id number] 07:10:00 Test Item Value Reference Range Interpretation [...] = 700) CBC W/PLT COUNT & AUTO [id number] 06:46:00 Test Item Value Reference Range Interpretation [...] PERCENT (BEAKER) (test code = 2801) CALCIUM, [id number] 06:40:00 Test Item Value Reference Range Interpretation Comments CALCIUM IONIZED (BEAKER) (test 1.06 mmol/L 1.12-1.27 L code = 698) PH, BLOOD (BEAKER) (test code = 7.39 1810) POCT-GLUCOSE [id number] 23:22:00 Test Item Value Reference Range Interpretation Comments POC-GLUCOSE METER 165 mg/dL 70-[address] [facility] 6720 (BEAKER) (test code = JULIANO REYEZ 1538) [address] URINE PROTEIN ELECTROPHORESIS, [id number] 18:02:00 Test Item Value Reference Range Interpretation Comments PROTEIN, URINE 305 mg/dL 0-14 H (BEAKER) (test code = 1569) ALBUMIN URINE ELP 70.9 % (BEAKER) (test code = 1018) GAMMA GLOBULIN URINE 29.1 % (BEAKER) (test code = 1015) UPEP, ID-438 (BEAKER) No monoclonal bands (test code = 2601) detected. [id number] Rocio Galindo MD ([facility]) (test code = (electronic signature) 4061) PROTEIN ELECTROPHORESIS, [id number] 17:57:00 Test Item Value Reference Range Interpretation [...] all globulin fractions. No monoclonal bands detected. [id number] Rocio Galindo MD ([facility]) (test code = (electronic signature) 0608) PROTEIN TOTAL SERUM, 5.5 gm/dL 6.0-8.3 L SPEP (BEAKER) (test code = 4670) POCT-GLUCOSE [id number] 17:15:00 Test Item Value Reference Range Interpretation Comments POC-GLUCOSE METER 209 mg/dL 70-[address] [facility] 6720 (BEAKER) (test code = JULIANO Osborne [facility] 1538) [address] BLOOD GAS, [id number] 15:54:00 Test Item Value Reference Range Interpretation [...] 36.0 % RAD, CHEST, 1 VIEW, NON [id number] 14:07:00Reason for exam:->SOB, hypoxemiaShould this be performed [...] Regan Cespedes Verified Date/Time: 05/19/2017 14:07:07 Reading Location:[address] Consult Reading Room POCT-GLUCOSE [id number] 11:26:00 Test Item Value Reference Range Interpretation Comments POC-GLUCOSE METER 262 mg/dL 70-110 H TESTED AT [place] [address] ([facility]) (test code = JULIANO Osborne [facility] 1538) [address] POCT-GLUCOSE [id number] 07:37:00 Test Item Value Reference Range Interpretation Comments POC-GLUCOSE METER 170 mg/dL 70-110 H TESTED AT [place] [address] ([facility]) ([facility] 1538) [address] CALCIUM, [id number] 06:06:00 Test Item Value Reference Range Interpretation Comments CALCIUM IONIZED (BEAKER) (test 1.05 mmol/L 1.12-1.27 L code = 698) PH, BLOOD (BEAKER) (test code = 7.41 1810) [id number] 05:38:00 Test Item Value Reference Range Interpretation Comments PHOSPHORUS (BEAKER) (test code = 3.9 mg/dL 2.3-4.7 604) [id number] 05:38:00 Test Item Value Reference Range Interpretation Comments MAGNESIUM (BEAKER) (test code = 2.2 mg/dL 1.6-2.6 627) BASIC METABOLIC [id number] 05:38:00 Test Item Value Reference Range Interpretation [...] PATIEN TS. CBC W/PLT COUNT & AUTO [id number] 05:09:00 Test Item Value Reference Range Interpretation [...] PERCENT (BEAKER) (test code = 2801) POCT-GLUCOSE [id number] 22:08:00 Test Item Value Reference Range Interpretation Comments POC-GLUCOSE METER 263 mg/dL 70-110 H TESTED AT [place] [address] (BEAKER) (test code = JULIANO Osborne [facility] 1538) [address] POCT-GLUCOSE [id number] 17:20:00 Test Item Value Reference Range Interpretation Comments POC-GLUCOSE METER 233 mg/dL 70-110 H TESTED AT [place] [address] (BEAKER) (test code = JULIANO Osborne [place] 1538) [address] POCT-GLUCOSE [id number] 08:28:00 Test Item Value Reference Range Interpretation Comments POC-GLUCOSE METER 154 mg/dL 70-110 H TESTED AT [place] [address] (BEAKER) (test code = JULIANO Osborne [place] 1538) [address] BASIC METABOLIC [id number] 06:41:00 Test Item Value Reference Range Interpretation [...] S NOT APPLICABLE FOR DIALYSIS PATIEN TS. [id number] 06:35:00 Test Item Value Reference Range Interpretation Comments PHOSPHORUS (BEAKER) (test code = 4.1 mg/dL 2.3-4.7 604) [id number] 06:35:00 Test Item Value Reference Range Interpretation Comments MAGNESIUM (BEAKER) (test code = 2.1 mg/dL 1.6-2.6 627) CALCIUM, [id number] 06:22:00 Test Item Value Reference Range Interpretation Comments CALCIUM IONIZED (BEAKER) (test 1.10 mmol/L 1.12-1.27 L code = 698) PH, BLOOD (BEAKER) (test code = 7.38 1810) CBC W/PLT COUNT & AUTO [id number] 06:04:00 Test Item Value Reference Range Interpretation [...] PERCENT (BEAKER) (test code = 2801) POCT-GLUCOSE [id number] 03:44:00 Test Item Value Reference Range Interpretation Comments POC-GLUCOSE METER 220 mg/dL 70-[address] [facility] 67 (BEAKER) (test code = JULIANO REYEZ 1538) [address] POCT-GLUCOSE [id number] 18:27:00 Test Item Value Reference Range Interpretation Comments POC-GLUCOSE METER 256 mg/dL 70-110 H TESTED AT [place] [address] ([facility]) (test code = JULIANO Osborne [facility] 1538) [address] POCT-GLUCOSE [id number] 15:45:00 Test Item Value Reference Range Interpretation Comments POC-GLUCOSE METER 278 mg/dL 70-110 H TESTED AT [place] [address] ([facility]) (test code = [facility] 1538) [address] POCT-GLUCOSE [id number] 13:22:00 Test Item Value Reference Range Interpretation Comments POC-GLUCOSE METER 278 mg/dL 70-110 H TESTED AT [place] [address] ([facility]) (test code = [facility] 1538) [address] PLATELET AGGREGATION: FUNCTION [id number] 13:18:00 Test Item Value Reference Range Interpretation Comments WEAK ADP 66 % 60-91 RESULT([facility]) (test code = 2135) PLATELET FUNCTION 60-100% indicates SCREEN INTERP ([facility]) normal platelet (test code = 2173) function [id number] Rigoberto Duenas MD ([facility]) (test code = (electronic signature) 2622) PLATELET COUNT AGG 204 K/CU MM 150-450 ([facility]) (test code = 2656) POCT-GLUCOSE [id number] 08:27:00 Test Item Value Reference Range Interpretation Comments POC-GLUCOSE METER 189 mg/dL 70-110 H TESTED AT [place] [address] ([facility]) (test code = [facility] 1538) [address] CALCIUM, [id number] 06:12:00 Test Item Value Reference Range Interpretation Comments CALCIUM IONIZED ([facility]) (test 1.07 mmol/L 1.12-1.27 L code = 698) PH, BLOOD ([facility]) (test code = 7.36 1810) [id number] 05:43:00 Test Item Value Reference Range Interpretation Comments PHOSPHORUS (BEAKER) (test code = 3.6 mg/dL 2.3-4.7 604) [id number] 05:43:00 Test Item Value Reference Range Interpretation Comments MAGNESIUM (BEAKER) (test code = 2.1 mg/dL 1.6-2.6 627) BASIC METABOLIC [id number] 05:43:00 Test Item Value Reference Range Interpretation [...] PATIEN TS. CBC W/PLT COUNT & AUTO [id number] 05:05:00 Test Item Value Reference Range Interpretation [...] PERCENT (BEAKER) (test code = 2801) POCT-GLUCOSE [id number] 21:32:00 Test Item Value Reference Range Interpretation Comments POC-GLUCOSE METER 176 mg/dL 70-110 H TESTED AT [place] [address] ([facility]) (test code = [facility] [place] 1538) [address] POCT-GLUCOSE [id number] 20:27:00 Test Item Value Reference Range Interpretation Comments POC-GLUCOSE METER 161 mg/dL 70-110 H TESTED AT [place] [address] ([facility]) (test code = [facility] 1538) [address] POCT-GLUCOSE [id number] 18:23:00 Test Item Value Reference Range Interpretation Comments POC-GLUCOSE METER 185 mg/dL 70-110 H TESTED AT [place] [address] ([facility]) (test code = [facility] 1538) [address] POCT-GLUCOSE [id number] 13:26:00 Test Item Value Reference Range Interpretation Comments POC-GLUCOSE METER 282 mg/dL 70-110 H TESTED AT [place] [address] ([facility]) (test code = [facility] 1538) [address] URINE [id number] 10:12:00 Test Item Value Reference Range Interpretation Comments CULTURE (BEAKER) (test >100,000 col/mL skin code = 1095) todd POCT-GLUCOSE [id number] 09:01:00 Test Item Value Reference Range Interpretation Comments POC-GLUCOSE METER 268 mg/dL 70-[address] [facility] 6720 (BEAKER) (test code = JULIANO [place] 1538) [address] CALCIUM, [id number] 05:39:00 Test Item Value Reference Range Interpretation Comments CALCIUM IONIZED (BEAKER) (test 0.84 mmol/L 1.12-1.27 L code = 698) PH, BLOOD (BEAKER) (test code = 7.35 1810) BASIC METABOLIC [id number] 05:07:00 Test Item Value Reference Range Interpretation [...] S NOT APPLICABLE FOR DIALYSIS PATIEN TS. [id number] 05:06:00 Test Item Value Reference Range Interpretation Comments PHOSPHORUS (BEAKER) (test code = 3.2 mg/dL 2.3-4.7 604) [id number] 05:06:00 Test Item Value Reference Range Interpretation Comments MAGNESIUM (BEAKER) (test code = 2.3 mg/dL 1.6-2.6 627) CBC W/PLT COUNT & AUTO [id number] 04:42:00 Test Item Value Reference Range Interpretation [...] = 2801) RHEUMATOID FACTOR AB, REFLEX TO [id number] 01:52:00 Test Item Value Reference Range Interpretation Comments RHEUMATOID FACTOR (ROBERT) (test Negative code = 573) POCT-GLUCOSE [id number] 21:57:00 Test Item Value Reference Range Interpretation Comments POC-GLUCOSE METER 105 mg/dL 70-[address] [facility] 6720 (ROBERT) (test code = JULIANO Osborne [facility] 1538) [address] POCT-GLUCOSE [id number] 18:11:00 Test Item Value Reference Range Interpretation Comments POC-GLUCOSE METER 312 mg/dL 70-110 H Notified Dylon Austin MD/TESTED (ROBERT) (test code = AT [facility] 6720 [facility] 1538) [facility] 7703 0 PET, CARDIAC PERFUSION MULTIPLE STUDIES, REST AND [id number] 16:28:00 Reason for exam:->pvcs, known cadFINAL REPORT PROCEDURE: Rest/Stress MYOCARDIAL PERFUSION PET with regadenoson\\XA9\\ CPT CODE: 43842 INDICATION: Defined extent and severity of known [...] is 23%. LVEF at stress is 36%. [employer] CT images revealed a right pleural effusion [...] Whaley Verified Date/Time: 05/15/2017 16:28:12 Reading Location: [address] ReadingRoom RAD, CHEST, 1 VIEW, NON [id number] 15:56:00Reason for exam:->SOBShould this be performed at the bedside?->YesFINAL REPORT Comparison: 05/14/2017 TECHNIQUE: Single view of the chest FINDINGS: There is a small right pleural effusion with nonspecific airspace disease. This is unchanged. Left lung is grossly clear. Cardiac silhouette is enlarged. IMPRESSION: 1. No acute cardiopulmonary disease. Signed: Sixto Monk MDReport Verified Date/Time: 05/15/2017 15:56:39 Reading Location: [facility] iology Reading Room POCT-GLUCOSE [id number] 12:54:00 Test Item Value Reference Range Interpretation Comments POC-GLUCOSE METER 308 mg/dL 70-110 H Notified R Sonya MD/TESTED (ROBERT) (test code = AT [facility] 6720 [facility] 1538) [facility] 7703 0 U/S, RENAL WITH [id number] 11:04:00Reason for exam:->tracy, htnShould this be performed [...] the resistive indices throughout. Signed: Anahi Hobbs Leticiaort Verified Date/Time: 05/15/2017 11:04:01 Reading Location: [address] Ultrasound Reading Room ANA TITER AND [id number] 10:57:00 Test Item Value Reference Range Interpretation Comments ROGER TITER (BEAKER) (test code = :160 1541) ROGER PATTERN (BEAKER) (test code = Speckled 1781) ANTI-NUCLEAR ANTIBODY (ROGER)2017-05-15 10:56:00 Test Item Value Reference Range Interpretation Comments ANTI-NUCLEAR ANTIBODY (ROGER) (BEAKER) Positive Negative A (test code = 418) CALCIUM, [id number] 06:00:00 Test Item Value Reference Range Interpretation Comments CALCIUM IONIZED (BEAKER) (test 1.07 mmol/L 1.12-1.27 L code = 698) PH, BLOOD (BEAKER) (test code = 7.28 1810) HEPATITIS PANEL, [id number] 05:01:00 Test Item Value Reference Range Interpretation Comments HEPATITIS A IGM ANTIBODY (BEAKER) Nonreactive Nonreactive (test code = 498) HEPATITIS B CORE IGM ANTIBODY Nonreactive Nonreactive (BEAKER) (test code = 645) HEPATITIS C ANTIBODY (BEAKER) Nonreactive Nonreactive (test code = 367) HEPATITIS B SURFACE ANTIGEN (2) Nonreactive Nonreactive (BEAKER) (test code = 2585) BASIC METABOLIC [id number] 04:48:00 Test Item Value Reference Range Interpretation [...] NOT APPLICABLE FOR DIALYSIS PATIEN TS. URIC [id number] 04:41:00 Test Item Value Reference Range Interpretation Comments URIC ACID (BEAKER) (test code = 10.3 mg/dL 2.6-7.2 H 773) [id number] 04:41:00 Test Item Value Reference Range Interpretation Comments MAGNESIUM (BEAKER) (test code = 2.0 mg/dL 1.6-2.6 627) [id number] 04:41:00 Test Item Value Reference Range Interpretation Comments PHOSPHORUS (BEAKER) (test code = 4.2 mg/dL 2.3-4.7 604) COMPLEMENT COMPONENT [id number] 04:38:00 Test Item Value Reference Range Interpretation Comments C4 COMPLEMENT (BEAKER) (test code = 28 mg/dL 15-57 394) COMPLEMENT COMPONENT [id number] 04:38:00 Test Item Value Reference Range Interpretation Comments C3 COMPLEMENT (BEAKER) (test code = 103 mg/dL 82-193 393) CBC W/PLT COUNT & AUTO [id number] 04:22:00 Test Item Value Reference Range Interpretation [...] PERCENT (BEAKER) (test code = 2801) POCT-GLUCOSE [id number] 21:46:00 Test Item Value Reference Range Interpretation Comments POC-GLUCOSE METER 173 mg/dL 70-[address] [facility] 6720 [facility] (test code = JULIANO Osborne [facility] 1538) [address] POCT-GLUCOSE [id number] 21:46:00 Test Item Value Reference Range Interpretation Comments POC-GLUCOSE METER 154 mg/dL 70-[address] [facility] 6720 (BEAKER) (test code = JULIANO Osborne [facility] 1538) [address] POCT-GLUCOSE [id number] 18:17:00 Test Item Value Reference Range Interpretation Comments POC-GLUCOSE METER 175 mg/dL 70-[address] [facility] 6720 ([facility]) (test code = JULIANO Osborne [facility] 1538) [address] RAD, CHEST, 1 VIEW, NON [id number] 14:56:00Reason for exam:->SOBShould this be performed at the bedside?->YesFINAL REPORT INDICATION: SOB COMPARISON: May 13, 2017 TECHNIQUE: Chest radiograph, single view, portable technique. FINDINGS / IMPRESSION: Enlarged heart shadow, small rightpleural effusion, and pulmonary venous congestion, again demonstrated. No pneumothorax or consolidation. Osseous structures unremarkable. Signed: Thania Dwyer Verified Date/Time: 05/14/2017 14:56:58 Reading Location: [facility] Mammo Reading Room POCT-GLUCOSE [id number] 12:18:00 Test Item Value Reference Range Interpretation Comments POC-GLUCOSE METER 313 mg/dL 70-[address] [facility] 67 ([facility]) (test code = JULIANO Osborne [facility] 1538) [address] HIV-1 ANTIGEN WITH HIV-1/2 [id number] 12:07:00 Test Item Value Reference Range Interpretation Comments HIV-1 ANTIGEN WITH HIV 1\\T\\2 Nonreactive Nonreactive ANTIBODY (2) ([facility]) (test code = 2586) CALCIUM, [id number] 06:37:00 Test Item Value Reference Range Interpretation Comments CALCIUM IONIZED (BEAKER) (test 1.08 mmol/L 1.12-1.27 L code = 698) PH, BLOOD (BEAKER) (test code = 7.25 1810) BASIC METABOLIC [id number] 06:26:00 Test Item Value Reference Range Interpretation [...] pg/mL 0-100 H (test code = 700) [id number] 06:25:00 Test Item Value Reference Range Interpretation Comments PHOSPHORUS (BEAKER) (test code = 5.7 mg/dL 2.3-4.7 H 604) [id number] 06:25:00 Test Item Value Reference Range Interpretation Comments MAGNESIUM (BEAKER) (test code = 1.5 mg/dL 1.6-2.6 L 627) CBC W/PLT COUNT & AUTO [id number] 06:07:00 Test Item Value Reference Range Interpretation [...] PERCENT (BEAKER) (test code = 2801) POCT-GLUCOSE [id number] 22:38:00 Test Item Value Reference Range Interpretation Comments POC-GLUCOSE METER 262 mg/dL 70-[address] [facility] 6720 (BEAKER) (test code = JULIANO Osborne [facility] 1538) [address] PROTEIN, RANDOM [id number] 22:18:00 Test Item Value Reference Range Interpretation Comments PROTEIN, URINE (BEAKER) (test code 641 mg/dL 0-14 H = 1569) CREATININE, RANDOM [id number] 22:07:00 Test Item Value Reference Range Interpretation Comments CREATININE URINE (BEAKER) (test 124.9 mg/dL code = 375) Reference Range: No NormalsURINALYSIS W/ [id number] 22:03:00 Test Item Value Reference Range Interpretation [...] 1585) SOURCE(BEAKER) (test code = Urine, Voided 2795) [id number] 19:49:00 Test Item Value Reference Range Interpretation Comments SODIUM (BEAKER) (test 136 meq/L 136-145 code = 381) POTASSIUM (BEAKER) 5.1 meq/L 3.5-5.1 Specimen slightly (test code = 379) hemolyzed CHLORIDE (BEAKER) 104 meq/L 98-107 (test code = 382) CO2 (BEAKER) (test 25 meq/L 22-29 code = 355) Call if K > 5POCT-GLUCOSE [id number] 11:37:00 Test Item Value Reference Range Interpretation Comments POC-GLUCOSE METER 293 mg/dL 70-[address] [facility] 6720 (BEAKER) (test code = JULIANO [place] 153) [address] RAD, CHEST, 1 VIEW, NON [id number] 10:22:00Reason for exam:->SOBShould this be performed at the bedside?->YesFINAL REPORT Chest one view Discussion: There is cardiomegaly and interstitial congestion. A small right-sided effusion is noted. No pneumothorax. IMPRESSIONS: Suspected CHF. Signed: Jeannette Navaepemily Verified Date/Time: 05/13/2017 10:22:34 Reading Location: [facility] Radiology Reading Room POCT-GLUCOSE METER 2017-05-13 08:34:00 Test Item Value Reference Range Interpretation Comments POC-GLUCOSE METER 178 mg/dL 70-[address] [facility] 6720 (BEAKER) (test code = JULIANO Osborne [facility] 1538) [address] POCT-GLUCOSE [id number] 06:53:00 Test Item Value Reference Range Interpretation Comments POC-GLUCOSE METER 167 mg/dL 70-[address] [facility] 6720 (BEAKER) (test code = JULIANO Osborne [facility] 1538) [address] [id number] 04:48:00 Test Item Value Reference Range Interpretation Comments BLOOD UREA NITROGEN (BEAKER) (test 36 mg/dL 7-21 H code = 354) [id number] 04:48:00 Test Item Value Reference Range Interpretation Comments SODIUM (BEAKER) (test code = 381) 139 meq/L 136-145 POTASSIUM (BEAKER) (test code = 5.2 meq/L 3.5-5.1 H 379) CHLORIDE (BEAKER) (test code = 382) 109 meq/L 98-107 H CO2 (BEAKER) (test code = 355) 23 meq/L 22-29 [id number] 04:48:00 Test Item Value Reference Range Interpretation [...] WBC 0-0 (BEAKER) (test code = 413) [id number] 23:29:00 Test Item Value Reference Range Interpretation Comments ACTIVATED CLOTTING TIME 136 sec TEST ED AT [place] [address] ([facility]) (test code = JULIANO [place] [facility]) [address] [id number] 20:13:00 Test Item Value Reference Range Interpretation Comments ACTIVATED CLOTTING TIME 175 sec TEST ED AT [place] [address] ([facility]) (test code = [place]IANO [place] 441) [address] [id number] 18:36:00 Test Item Value Reference Range Interpretation Comments ACTIVATED CLOTTING TIME 202 sec TEST ED AT [place] [address] ([facility]) (test code = [place]ULIANO [place] 441) [address] [id number] 18:03:00 Test Item Value Reference Range Interpretation Comments ACTIVATED CLOTTING TIME 208 sec TEST ED AT [facility] 6720 (BEAKER) (test code = [place]ULIANO [place] 441) [address] BASIC METABOLIC [id number] 11:57:00 Test Item Value Reference Range Interpretation [...] NOT APPLICABLE FOR DIALYSIS PATIEN TS. PROTHROMBIN [id number] 11:15:00 Test Item Value Reference Range Interpretation [...] if on CoumadinCBC W/PLT COUNT & AUTO [id number] 11:01:00 Test Item Value Reference Range Interpretation [...] PERCENT (BEAKER) (test code = 2801) POCT-GLUCOSE [id number] 12:35:00 Test Item Value Reference Range Interpretation Comments POC-GLUCOSE METER 249 mg/dL 70-[address] [facility] 6720 (BEAKER) (test code = JULIANO [place] 1538) [address] POCT-GLUCOSE [id number] 09:10:00 Test Item Value Reference Range Interpretation Comments POC-GLUCOSE METER 155 mg/dL 70-[address] [facility] 6720 (BEAKER) (test code = JULIANO Osborne [place] 1538) [address] BASIC METABOLIC [id number] 05:39:00 Test Item Value Reference Range Interpretation [...] S NOT APPLICABLE FOR DIALYSIS PATIEN TS. [id number] 05:27:00 Test Item Value Reference Range Interpretation Comments PHOSPHORUS (BEAKER) (test code = 5.0 mg/dL 2.3-4.7 H 604) [id number] 05:27:00 Test Item Value Reference Range Interpretation Comments MAGNESIUM (BEAKER) (test code = 1.6 mg/dL 1.6-2.6 627) POCT-GLUCOSE [id number] 05:25:00 Test Item Value Reference Range Interpretation Comments POC-GLUCOSE METER 144 mg/dL 70-[address] [facility] 6720 (BEAKER) (test code = JULIANO Osborne [place] 1538) [address] PROTHROMBIN [id number] 04:58:00 Test Item Value Reference Range Interpretation Comments PROTIME (BEAKER) (test code = 14.2 seconds 11.7-14.7 759) INR (BEAKER) (test code = 370) 1.1 <=5.9 RECOMMENDED COUMADIN/WARFARIN INR THERAPY RANGESSTANDARD DOSE: 2.0 - 3.0 Includes: PROPHYLAXIS forvenous thrombosis, systemic embolization; TREATMENT for venous thrombosis and/or pulmonary embolus.HIGH RISK: Target INR is 2.5-3.5 for patients with mechanical heart valves.POCT-GLUCOSE [id number] 23:55:00 Test Item Value Reference Range Interpretation Comments POC-GLUCOSE METER 86 mg/dL 70-110 TESTED AT [place] [address] ([facility]) (test code = [facility] [address] 1538) B-TYPE NATRIURETIC FACTOR (BNP)2017-04-22 18:13:00 Test Item Value Reference Range Interpretation Comments B-TYPE NATRIURETIC PEPTIDE 1203 pg/mL 0-100 H ([facility]) (test code = 700) POCT-GLUCOSE [id number] 17:36:00 Test Item Value Reference Range Interpretation Comments POC-GLUCOSE METER 259 mg/dL 70-110 H TESTED AT [place] [address] ([facility]) (test code = [facility] 1538) [address] HEMOGLOBIN [id number] 14:24:00 Test Item Value Reference Range Interpretation Comments HEMOGLOBIN A1C ([facility]) (test code = 10.5 % 4.3-6.1 H 368) POCT-GLUCOSE [id number] 12:34:00 Test Item Value Reference Range Interpretation Comments POC-GLUCOSE METER 207 mg/dL 70-110 H TESTED AT [place] [address] ([facility]) (test code = [facility] 1538) [id number] 07:53:00 Test Item Value Reference Range Interpretation Comments PHOSPHORUS (BEAKER) (test code = 3.9 mg/dL 2.3-4.7 604) [id number] 07:53:00 Test Item Value Reference Range Interpretation Comments MAGNESIUM (BEAKER) (test code = 1.6 mg/dL 1.6-2.6 627) BASIC METABOLIC [id number] 07:53:00 Test Item Value Reference Range Interpretation Comments SODIUM (BEAKER) 139 meq/L 136-145 (test code = 381) POTASSIUM ([facility]) 4.5 meq/L 3.5-5.1 (test code = 379) [...] NOT APPLICABLE FOR DIALYSIS PATIEN TS. TROPONIN [id number] 07:29:00 Test Item Value Reference Range Interpretation [...] acidosis, acute neurological disease, and persistent tachyarrhythmia.PROTHROMBIN [id number] 07:01:00 Test Item Value Reference Range Interpretation Comments PROTIME (BEAKER) (test code = 13.8 seconds 11.7-14.7 759) INR (BEAKER) (test code = 370) 1.1 <=5.9 RECOMMENDED COUMADIN/WARFARIN INR THERAPY RANGESSTANDARD DOSE: 2.0 - 3.0 Includes: PROPHYLAXIS forvenous thrombosis, systemic embolization; TREATMENT for venous thrombosis and/or pulmonary embolus.HIGH RISK: Target INR is 2.5-3.5 for patients with mechanical heart valves.POCT-GLUCOSE [id number] 06:28:00 Test Item Value Reference Range Interpretation Comments POC-GLUCOSE METER 198 mg/dL 70-[address] [facility] 6720 (BEAKER) (test code = JULIANO REYEZ 2780) [address] CREATINE KINASE (CK), TOTAL AND [id number] 00:49:00 Test Item Value Reference Range Interpretation Comments CREATINE KINASE TOTAL (ROBERT) 69 U/L 29-200 (test code = 380) CREATINE KINASE-MB (ROBERT) (test 4.3 ng/mL 0.0-6.6 code = 750) CREATINE KINASE-MB INDEX (ROBERT) 6.2 % (test code = 395) CK-MB Reference Range:<6.7 Normal6.7-10.0 Borderline>10.0 AbnormalTROPONIN [id number] 00:49:00 Test Item Value Reference Range Interpretation [...] acidosis, acute neurological disease, and persistent tachyarrhythmia.POCT-GLUCOSE [id number] 20:44:00 Test Item Value Reference Range Interpretation Comments POC-GLUCOSE METER 269 mg/dL 70-[address] [facility] 6720 (ROBERT) (test code = JULIANO Osborne [facility] 1533) [id number]
--- NOTE | 2021-02-23 21:13 | ER ---
Nurse's Notes [facility] Name: Christy Priest Age: 65 yrs Sex: Female : 1955 Arrival Date: 02/23/2021 Time: 14:31 Bed Waiting Private MD: Diagnosis: Presentation: 02/23 14:50 Chief complaint: Patient states: Missed dialysis x 2 weeks. Pt was told to come to ER ss for blood work. Coronavirus screen: Client denies travel out of the [place] in the last 14 days. Ebola Screen: Patient denies exposure to infectious person. Patient denies travel to an Ebola-affected area in the 21 days before illness onset. Initial Sepsis Screen: Does the patient meet any 2 criteria? No. Patient's initial sepsis screen is negative. Does the patient have a suspected source of infection? No. Patient's initial sepsis screen is negative. Risk Assessment: Do you want to hurt yourself or someone else? Patient reports no desire to harm self or others. Onset of symptoms is unknown. 14:50 Method Of Arrival: Wheelchair 14:50 Acuity: DENNY 3 Historical: - Allergies: 14:51 Nitroglycerin; ss 14:51 tramadol; ss 14:51 vancomycin; ss - PMHx: 14:51 Diabetes mellitus; Hypertensive disorder; ss - Immunization history:: Client reports having NOT received the Covid vaccine. - Social history:: Smoking status: Patient denies any tobacco usage or history of. Assessment: 19:08 Reassessment: Called no answer. Vital Signs: 14:50 Resp 18; Weight 73.94 kg; Height 5 ft. 7 in. (170.18 cm); Pain 0/10; ss 14:52 BP 130 / 61; Pulse 76; Temp 98.0(O); Pulse Ox 97% on R/A; ss 14:50 Body Mass Index 25.53 (73.94 kg, 170.18 cm) ED Course: 14:31 Patient arrived in ED. as 14:51 Triage completed. ss 14:51 Arm band placed on right wrist. ss 21:13 Patient's name was called from ER lobby. No response. Unable to locate patient. Will bb disposition as left without being seen by a provider. Administered Medications: No medications were administered Outcome: 21:13 Patient left the ED. bb Signatures: Nicol [place]ows Brenda, RN RN bb Vero Wells, GUILHERME RN ss
[2021-02-23 21:30] VITALS: BP 130/61; TEMP 98; O2SAT 97
== END 2021-02-23 21:13 | disposition left against medical advice (07) ==
LOC: ER 14:29
DX: Z53.21 Procedure and treatment not carried out due to patient leaving prior to being seen by health care provider (principal)
CPT/HCPCS: 99281

== ENCOUNTER 2021-02-24 12:24 | Inpatient (IN) | payer OTHER ==
--- OUTSIDE RECORDS SUMMARY | 2021-02-24 12:41 | XMS REPORT | Continuity of Care Document ---
:1955 Author Organization [facility] t Address [address] [place] [address] Care Team Providers Name Role Phone THA TIEN Primary Care Physician Unavailable LISA MOHAMUD Attending Clinician Unavailable Babatunde PIERRE Attending Clinician Mk PIERRE Attending Clinician BABATUNDE Attending Clinician Unavailable Lisa Mohamud MD Attending Clinician Kj PIERRE, Tracy Attending Clinician Urmila PIERRE, Adedotun Attending Clinician [...] Type Policy Number Effective Date Expiration Date S ource MEDICAID MOLINA [id number] 2011 00:00:00 [facility] [id number] 2010 MEDICAID 00:00:00 Problems Condition Condition Condition [...] IBS IBS 5-10 [facility] Leukocytos Leukocytos Disease Active C HI [...] [facility]sis [facility] -[address] [facility] [place] Medical artery of artery of 00 [...] l mellitus mellitus 00 Center with with records management coordinator records management coordinator y y disorder, disorder, with with long-term long-term current current use of use of insulin insulin Smoker Smoker Disease Active [facility] Frequent Frequent Disease Active [facility] PVCs PVCs 2[facility]12 [facility] Kidney Kidney Problem Active [facility] disease [...] d COPD d COPD 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 VANCOMYC DRUG Active Med N/V 2019-03 Univers IN INGREDI ity of 00:00[place] [facility] MORPHINE DRUG Active High Anaphylaxis 2019-03 Uni vers INGREDI ity of 00:00[place] [facility] AMOXICIL DRUG Active Med Diarrhea 2019-03 Univer s KENZIE-POT ity of CLAVULAN 00:00: [place] ATE 00 Medical Branch NITROGLY DRUG Active High Anaphylaxis 2019-03 Uni vers CERIN IN ity of 5 % 00:00: [place] DEXTROSE Medical Branch TRAZODON DRUG Active Med N/V 2019-03 Univers E INGREDI ity of 00:[place]: [place] [address] [facility] Trazodon Drug Active Nausea And [facility] Allergy Vomiting 05-12 [facility] - 00:00: [address] TRAZODON Allergy Active High N\\T\\V [facility]SL E 2-12 00:00: 00 Morphine Propensi [...] ATE 00 BASIL Allergy Active High Nausea 2018-0 [facility] 04-21 00:00: 00 MORPHINE Allergy Active High Anaphylaxis 2018-0 SL SL 04-21 00:00: 00 NITROGLY Allergy Active High N\\T\\V 2018-0 [facility] CERIN 04-21 00:00: 00 VANCOMYC Allergy Active High N\\T\\V 2018-0 [facility] IN 04-21 ANALOGUE 00:00: S Vancomyc Adverse Active vomiting [facility] HCl Reaction [facility] Nitrogly Adverse Active vomiting [facility] cerin Reaction [facility] Morphine Adverse Active headache, [facility] Sulfate Reaction breathing [facility]ics NO KNOWN Drug Active Univers ALLERGIE Class ity of [facility] Clindamy Adverse Active vomiting [facility] riley HCl Reaction [facility] Family History Family Member Diagnosis Comments Start Date Stop Date Source Natural father COPD [facility] Natural father Cancer [facility] Natural father Hypertension [facility] Natural mother No Known Problem [facility] Natural sister Asthma [facility] Natural sister COPD [facility] Social History Social Habit Start Date Stop Date Quantity Comments Source Sex Assigned At [facility] Cigarettes smoked 2019-12-31 2019-12-[address] [facility] - current (pack per 00:00:00 00:00:00 Medical Center day) - Reported Cigarette 2019-12-31 2019-12-[address] [facility] - pack-years 00:00:00 00:00:00 [facility] Tobacco use and 2019-12-31 2019-12-[address] [facility] - exposure 00:00:00 00:00:00 [facility] Alcohol intake 2019-12-31 2019-12-[address] [facility] - 00:00:00 00:00:00 non-drinker of Medical Ce nter alcohol (finding) History of tobacco 2017-05-[address] [facility] - use 00:[facility]00 [facility] Smoking Status Start Date Stop Date Source Former smoker 2019-12-31 00:00:00 2019-12-31 00:00:[address] [facility] [facility] Medications Ordered Filled Start Stop Current Ordering Indication Dosage Frequency Signature Comments Components Source Medication Medication Date Date Medication? Clinician (SIG) Name Name mupirocin 2019-03 Yes QD Apply [facility] (BACTROBAN) 0-03 topically Lay es - 2 % 10:49: daily. Medical ointment 00 [place] collagenase 2019-03 Yes QD Apply [facility] t (SANTYL) 0-03 topically [facility] - 250 units/g 10:49: daily. Medi marilin ointment 00 [place] bumetanide 2019-03 Yes 2mg [id number] Take [address] (BUMEX) 2 0-03 [id number] by mouth 3 [facility] - MG tablet [...] 2 % 10:49: daily. Medical ointment 00 [place] collagenase 2019-03 Yes QD Apply [facility] (SANTYL) 0-03 topically [facility] - 250 units/g 10:49: daily. Medi marilin ointment 00 [place] bumetanide 2019-03 Yes 2mg [id number] Take [address] (BUMEX) 2 0-03 [id number] by mouth 3 [facility] - MG tablet [...] 24 hr 29 :00 Center tablet acetaminoph 2018-0 Yes 1{tbl} Take 1 CH [...] needed. Max Daily Amount: 4 tablets gabapentin 2017- Yes Take [address] (NEURONTIN) 6-05 mg in AM Luke s - 100 MG 00:00: and Medical capsule 00 afternoon Center and 300 mg at night. gabapentin 20180 Yes Take [address] (NEURONTIN) 6-05 mg in AM Luke s - 100 MG 00:00: and Medical capsule 00 afternoon Center and 300 mg at night. ferrous 2017- 2020- No 325mg Q.5D Take [address] sulfate 325 08-09-17 tablet [facility] - (65 FE) MG 00:00: 00:00 (325 mg Med ical tablet 00 :00 total) by Center mouth 2 (two) times daily. ferrous 2017- 2020- No 325mg Q.5D Take [address] sulfate 325 08-09-17 tablet [facility] - (65 FE) MG 00:00: [...] by mouth Center daily Blood pressure. hydrALAZINE 2020- No 50mg Take [address] [facility] [facility] [...] 00 :00 by mouth Center daily. fluticasone 2018-0 Yes 1{puff} Q.5D Inhale [...] - MOUTH Memoria EVERYDAY l AT BEDTIME [facility] Isosorbide Isosorbide Yes Franki TAKE [address] [facility] Mononitrate Mononitrate Jas TABLET BY [facility] - ER ER MOUTH Memoria EVERY DAY l [facility] NIFEdipine NIFEdipine Yes Franki TAKE [address] [facility] ER ER Jas TABLET BY [facility] - MOUTH Memoria EVERY DAY l [facility] BuPROPion BuPROPion Yes Franki TAKE [address] HCl HCl Jas TABLET BY [facility] - MOUTH Memoria EVERY DAY l [facility] Acetaminoph Acetaminoph Yes [...] [facility]ukes - MOUTH Memoria TWICE l DAILY. [facility] RINSE ent MOUTH Clinics AFTER [...] MOUTH ONE Memoria TIME PER l WEEK [facility] Furosemide Furosemide Yes [...] cm Heart rate 2020-01-01 08:41:00 60 /min [facility] Respiratory rate 2020-01-01 08:41:00 18 /min [facility] Oxygen saturation in 2020-01-01 08:41:00 100 /min [facility] Arterial blood by Medical Ce nter Pulse oximetry Systolic blood 2020-01-01 08:32:00 162 mm[Hg] [facility] Diastolic blood 2020-01-01 08:32:00 73 mm[Hg] [facility] Body temperature 2020-01-01 07:41:00 36.56 Deanne [facility] Body weight 2019-12-30 04:28:00 78.2 kg [facility] BMI 2019-12-30 04:28:00 27.00 kg/m2 [facility] Body height 2019-12-25 21:05:00 170.2 cm [facility] Procedures Procedure Date / Time Performed Performing Clinician [facility] e REPORT OF PROCEDURE - 2020-01-05 08:40:02 Provider, Default [facility] ENDOSCOPY SCAN [facility] RHYTHM STRIP - SCAN 2020-01-05 08:31:43 Provider, Default [facility] RHYTHM STRIP - SCAN 2020-01-05 08:31:42 Provider, Default [facility] RHYTHM STRIP - SCAN 2020-01-05 08:31:40 Provider, Default [facility] CARDIAC CATH REPORT - 2020-01-05 08:31:15 Provider, Default [facility] SCAN Scanning [facility] CARDIAC CATH REPORT - 2020-01-05 08:31:13 Provider, Default [facility] POCT-GLUCOSE METER 2020-01-01 06:33:00 [facility] W/PLT COUNT & AUTO 2020-01-01 05:37:00 [facility] 2020-[facility]-01 05:37[facility]SE MET[facility] 2019-12-31 20:50:00 Pat Mohamud [facility] POCT-GLUCOSE METER 2019-12-31 18:00:00 Cade [facility] POCT-GLUCOSE METER 2019-12-31 11:42:00 Cade, [facility] POCT-GLUCOSE METER 2019-12-31 06:29:00 Cade [facility] CBC W/PLT COUNT & AUTO 2019-12-31 06:05:00 [facility] 2019-12-31 06:05:00 [facility] 2019-12-31 06:05:00 Cade [facility] POCT-GLUCOSE METER 2019-12-30 20:13:00 [facility] POCT-GLUCOSE METER 2019-12-30 16:26:00 Cade [facility] SURGICALLY OBTAINED 2019-12-30 13:59:46 Pat Mohamud [facility] - CULTURE + GRAM STAIN Medical [facility] ter ANAEROBIC CULTURE 2019-12-30 13:59:46 [facility] 2019-12-30 13:54:56 [facility] + GRAM STAIN Medical [facility] ANAEROBIC CULTURE 2019-12-30 13:54:56 Cade [facility] TISSUE EXAM 2019-12-30 13:38:00 [facility] I&D,BONE FOOT 2019-12-30 13:11:00 Tala Santacruz [facility] POCT-GLUCOSE METER 2019-12-30 11:39:00 Pat Mohamud [facility] ECG 12-LEAD 2019-12-30 10:53:36 Unknown, Hl7 Doctor [facility] POCT-GLUCOSE METER 2019-12-30 05:39:00 Pat Mohamud [facility] SARS-COV2/RT-PCR ([facility] & 2019-12-30 05:11:00 Pat Mohamud [facility] - REF LABS) [facility] CBC W/PLT COUNT & AUTO 2019-12-30 05:09:00 RiverdaleLily [facility] t [facility] DIFFERENTIAL [facility] METABOLIC 2019-12-30 05:09:00 RiverdaleLily [facility] POCT-GLUCOSE METER 2019-12-29 21:09:00 [facility] POCT-GLUCOSE METER 2019-12-29 11:10:00 [facility] HEM[facility]YSIS INPATIENT 2019-12-29 08:12:17 Brandie Khan [facility] POCT-GLUCOSE METER 2019-12-29 06:10:00 [facility] CBC W/PLT COUNT & AUTO 2019-12-29 05:50:00 [facility] DIFFERENTIAL [facility] 2019-12-29 05:50:00 River[place]Lily [facility] POCT-GLUCOSE METER 2019-12-28 20:37:00 [facility] POCT-GLUCOSE METER 2019-12-28 17:38:00 [facility] POCT-GLUCOSE METER 2019-12-28 13:12:00 [facility] POCT-GLUCOSE METER 2019-12-28 05:43:00 Pat [facility]ud [facility] CBC W/PLT COUNT & AUTO 2019-12-28 04:41:00 [place] DIFFERENTIAL [facility] COMPREHENSIVE METABOLIC 2019-12-28 04:41:00 Lily Echavarria [facility] ABD AO & LOWER EXT 2019-12-28 02:30:00 Sakina Tamayo [facility] ANGIOS/ POSS PPI [facility] POCT-GLUCOSE METER 2019-12-27 20:32:00 Pat Mohamud [facility] MR LOWER EXTREMITY 2019-12-27 16:30:00 Lily Echavarria [facility] - WITHOUT IV CONTRAST LEFT Medical Center POCT-GLUCOSE METER 2019-12-27 14:06:00 [facility] WOUND CULTURE + GRAM 2019-12-27 12:02:00 Annia Delgado CH I [facility] POCT-GLUCOSE METER 2019-12-27 06:44:00 Pat Mohamud [facility] POCT-GLUCOSE METER 2019-12-27 05:49:00 [facility] CBC W/PLT COUNT & AUTO 2019-12-27 05:05:00 Lily Echavarria [facility] S [facility] METABOLIC 2019-12-27 05:05:00 JerichoLily [facility] HEMODIALYSIS INPATIENT 2019-12-27 00:31:18 Brandie Khan [facility] POCT-GLUCOSE METER 2019-12-26 20:51:00 Pat Mohamud [facility] TRANSFUSION SERVICE 2019-12-26 18:02:44 Rocco Sepulveda [facility] REPORT - SCAN Scanning [facility] POCT-GLUCOSE METER 2019-12-26 16:42:00 Pat [facility]ud [facility] CTA AAA AND RUNOFF 2019-12-26 15:27:00 Sakina Tamayo [facility] POCT-GLUCOSE METER 2019-12-26 11:59:00 Pat Mohamud [facility] POCT-GLUCOSE METER 2019-12-26 06:09:00 Cade, Salman [facility] CBC W/PLT COUNT & AUTO 2019-12-26 04:36:00 JerichoLily [facility] 2019-12-26 04:36:00 [place] [facility] PREPARE LEUKO-REDUCED RBC 2019-12-25 23:54:00 Brandie Khan [facility] POCT-GLUCOSE METER 2019-12-25 20:51:00 Pat Mohamud [facility] TRANSFUSION SERVICE 2019-12-25 18:04:44 Rocco Sepulveda [facility] REPORT - SCAN Scanning [facility] POCT-GLUCOSE METER 2019-12-25 17:01:00 Pat Mohamud [facility] POCT-GLUCOSE METER 2019-12-25 11:25:00 [facility] W/PLT COUNT & AUTO 2019-12-25 05:59:00 Lily Echavarria [facility] 2019-12-25 05:59:00 [place] [facility] POCT-GLUCOSE METER 2019-12-25 05:58:00 Cade [facility] TRANSFUSE LEUKO-REDUCED 2019-12-24 19:06:17 [facility] RED BLOOD CELLS [facility] POCT-GLUCOSE METER 2019-12-24 16:15:00 Pat Mohamud [facility] ABORH, MANUAL 2019-12-24 08:25:00 Jovita Griffith [facility] POCT-GLUCOSE METER 2019-12-24 06:11:00 Cade [facility] TYPE AND SCREEN, 2019-12-24 06:08:00 Brandie Khan [facility] es - AUTOMATED [facility] CBC W/PLT COUNT & AUTO 2019-12-24 05:51:00 JerichoLily [facility] 2019-12-24 05:51:00 River[place] [facility] POCT-GLUCOSE METER 2019-12-23 21:23:00 Pat Mohamud [facility] POCT-GLUCOSE METER 2019-12-23 16:42:00 Pat Mohamud [facility] MR LOWER EXTREMITY JOINT 2019-12-23 15:34:00 Tala Santacruz [facility] ONLY WITHOUT IV CONTRAST [facility] LEFT MR BRAIN WITHOUT IV 2019-12-23 15:34:00 Lily Echavarria [facility] - CONTRAST [facility] POCT-GLUCOSE METER 2019-12-23 11:16:00 Pat Mohamud [facility] ARTERIAL DOPPLER LEGS 2019-12-23 09:38:00 Tala Santacruz [facility] BILATERAL [facility] AMMONIA 2019-12-23 04:05:00 Mariela Carrasco [facility] CBC W/PLT COUNT & AUTO 2019-12-23 04:00:00 RiverdaleLily [facility] COMPREHENSIVE METABOLIC 2019-12-23 04:00:00 RiverdaleLily [facility] SARS-COV2/RT-PCR ([facility] & 2019-12-23 03:59:00 Pat Mohamud [facility] - REF [facility] POCT-GLUCOSE METER 2019-12-22 20:34:00 [facility] POCT-GLUCOSE METER 2019-12-22 16:43:00 Pat Mohamud [facility] POCT-GLUCOSE METER 2019-12-22 11:31:00 Pat Mohamud [facility] POCT-GLUCOSE METER 2019-12-22 06:30:00 [facility] CBC W/PLT COUNT & AUTO 2019-12-22 05:14:00 River[place]Lily [facility] COMPREHENSIVE METABOLIC 2019-12-22 05:14:00 River[place]Lily [facility] POCT-GLUCOSE METER 2019-12-21 20:26:00 Cade, Salman [facility] POCT-GLUCOSE METER 2019-12-21 17:22:00 Cade [facility] POCT-GLUCOSE METER 2019-12-21 12:35:00 Cade [facility] POCT-GLUCOSE METER 2019-12-21 07:20:00 [facility]ade [facility] POCT-GLUCOSE METER 2019-12-21 05:52:00 Cade [facility] C-REACTIVE PROTEIN 2019-12-21 04:39:00 Annia Delgado [facility] CBC W/PLT COUNT & AUTO 2019-12-21 04:39:00 [facility] COMPREHENSIVE METABOLIC 2019-12-21 04:39:00 [facility] US ABDOMEN COMPLETE 2019-12-20 21:17:00 Sakina Chen [facility] POCT-GLUCOSE METER 2019-12-20 20:23:00 Cade [facility] POCT-GLUCOSE METER 2019-12-20 17:31:[address] [facility] [address] BRAIN WITHOUT IV 2019-12-20 16:04:00 [facility] AMMONIA 2019-12-20 14:41:00 [facility] BLOOD GAS, ARTERIAL 2019-12-20 14:28:00 [facility] XR FOOT 2 VIEWS RIGHT 2019-12-20 11:55:00 Annia Delgado [facility] POCT-GLUCOSE METER 2019-12-20 11:28:00 Cade [facility] POCT-GLUCOSE METER 2019-12-20 06:20:00 Cade [facility] OCCULT BLOOD, STOOL 2019-12-20 06:19:00 Sakina Chen [facility] ANTI-NUCLEAR ANTIBODY 2019-12-20 05:06:00 April Sakinara Carrillo C [facility] (ROGER) [facility] KAPPA / LAMBDA LIGHT 2019-12-20 05:06:00 Sakina Chen I [facility] - CHAINS, SERUM [facility] PROTEIN ELECTROPHORESIS, 2019-12-20 05:06:00 Sakina Chenba l [facility] PERIPHERAL BLOOD SMEAR - 2019-12-20 05:06:00 Sakina Chen l [facility] - PATHOLOGIST REVIEW [facility] CBC W/PLT COUNT & AUTO 2019-12-20 05:06:[address] [facility] COMPREHENSIVE METABOLIC 2019-12-20 05:06:00 Marcial Chapa [facility] T4, FREE 2019-12-20 05:06:00 April Sakina Carrillo [facility] ROGER TITER AND PATTERN 2019-12-20 05:06:00 Sakina Chen [facility] PT/APTT 2019-12-20 05:06:00 April Sakinara Carrillo [facility] FIBRINOGEN 2019-12-20 05:06:00 April [facility] D-DIMER 2019-12-20 05:06:00 April [facility] IRON, TIBC, % SAT. 2019-12-20 05:06:00 April Sakinara Carrillo [facility] (WITHOUT FERRITIN) [facility] VITAMIN B12 AND FOLATE 2019-12-20 05:06:00 April Sakina Carrillo [facility] RETICULOCYTE COUNT 2019-12-20 05:06:00 [facility] HAPTOGLOBIN 2019-12-20 05:06:00 [facility] TSH/FREE T4 IF INDICATED 2019-12-20 05:06:00 April Sakina Iqba [facility] FERRITIN 2019-12-20 05:06:00 April [facility] POCT-GLUCOSE METER 2019-12-19 20:35:00 CadePat diaz [facility] POCT-GLUCOSE METER 2019-12-19 16:06:00 CadeEvensruel [facility] HEMODIALYSIS INPATIENT 2019-12-19 16:02:09 Sharri Fernando [facility] CBC W/PLT COUNT & AUTO 2019-12-19 05:35:[address] [facility] BASIC METABOLIC PANEL (7) 2019-12-19 05:35:00 Marcial Chapa [facility] LACTATE DEHYDROGENASE 2019-12-19 05:35:00 Sakina Chen [facility] (LDH) [facility] POCT-GLUCOSE METER 2019-12-19 05:24:00 Cade Pat [facility] POCT-GLUCOSE METER 2019-12-18 21:35:00 Cade Pat [facility] POCT-GLUCOSE METER 2019-12-18 16:05:00 Cade [facility] POCT-GLUCOSE METER 2019-12-18 07:45:00 Cade [facility] POCT-GLUCOSE METER 2019-12-18 06:14:00 Cade [facility] POCT-GLUCOSE METER 2019-12-17 21:44:00 Cade [facility] POCT-GLUCOSE METER 2019-12-17 17:52:00 Cade [facility] POCT-GLUCOSE METER 2019-12-17 12:22:00 Cade [facility] HEMODIALYSIS INPATIENT 2019-12-17 10:33:08 Brandie Khan [facility] POCT-GLUCOSE METER 2019-12-17 06:18:00 Cade [facility] CBC W/PLT COUNT & AUTO 2019-12-17 04:14:[address] [facility] COMPREHENSIVE METABOLIC 2019-12-17 04:13:00 Marcial Chapa [facility] POCT-GLUCOSE METER 2019-12-16 20:55:00 Pat Mohamud [facility] POCT-GLUCOSE METER 2019-12-16 18:24:00 [facility] HEPATITIS B SURFACE 2019-12-16 16:02:00 Aldulacey [facility] ANTIBODY [facility] HEPATITIS B SURFACE 2019-12-16 16:02:00 Aldulacey [facility] ANTIGEN [facility] HEPATITIS C ANTIBODY 2019-12-16 16:02:00 [facility] HEPATITIS B CORE 2019-12-16 16:02:00 Bill [facility] es - ANTIBODY, TOTAL [facility] POCT-GLUCOSE METER 2019-12-16 14:47:00 Pat Mohamud [facility] IR TUNNELED CATHETER 2019-12-16 14:26:00 Sharri Fernando [facility] INSERTION [facility] HEMODIALYSIS INPATIENT 2019-12-16 12:37:39 Bill [facility] POCT-GLUCOSE METER 2019-12-16 11:01:00 Pat Mohamud [facility] XR CHEST 1 VIEW PORTABLE 2019-12-16 05:55:00 Marcial Chapa ra [facility] - / BEDSIDE [facility] POCT-GLUCOSE METER 2019-12-16 05:51:00 Pat Mohamud [facility] CBC W/PLT COUNT & AUTO 2019-12-16 04:08:[address] [facility] BASIC METABOLIC PANEL (7) 2019-12-16 04:08:00 Marcial Chapa [facility] PROTHROMBIN TIME/INR 2019-12-16 04:08:00 Marcial Chapa [facility] SARS-COV2/RT-PCR ([facility] & 2019-12-16 01:45:00 Cade, Salman [facility] Plan of Care Planned Activity Planned Date Details Comments Source Future Scheduled 2020-12-[address] [facility] - Test 00:[facility]00 examination Medical Center (regime/therapy) [code = 979889034] Future Scheduled 2020-12-[address] [facility] - Test 00:00:[address] [facility] (regime/therapy) [code = 016034409] Future Scheduled 2020-12-[address] [facility] - Test 00:00:00 [facility] colon (procedure) [code = 145940372] Future Scheduled 2020-12-[address] [facility] - Test 00:00:00 malignant ne[facility] colon (procedure) [code = 499131848] Future Scheduled 2020-11-29 INFLUENZA VACCINE (#1) [facility] Test 00:00:00 [code = INFLUENZA Medical Ce nter VACCINE (#1)] Future Scheduled 2020-11-29 INFLUENZA VACCINE (#1) [facility] - Test 00:00:00 [code = INFLUENZA Medical Ce nter VACCINE (#1)] Future Scheduled 2020-03-[address] [facility] - Test 00:00:00 (12+) [code = [facility] DEPRESSION SCREENING (12+)] Future Scheduled 2020-03-31 [...] 00:00:00 (1 of [address] [facility] [id number]) [code = PNEUMOCOCCAL 65+ YRS (1 of 1 - [id number] PCV13)] Future Scheduled 2020 PNEUMOCOCCAL 65+ Y[facility] - Test 00:00:00 (1 of [address] [facility] [id number] PCV13) [code = PNEUMOCOCCAL 65+ YRS (1 of 1 - [id number] PCV13)] Future Scheduled 2017-11-[address] [facility] - Test 00:[facility]:00 measurement [facility] Center (procedure) [code = 62030183] Future Scheduled 2017-11-[address] [facility] - Test 00:00:00 measurement Medical Center (procedure) [code = 08678985] Future Scheduled 2005 SHINGLES VACCINES ([address] [facility] - Test 00:00:00 of 2) [code = [facility] ([facility] of 2)] Future Scheduled 2005 SHINGLES VACCINES ([address] [facility] 00:00:00 of 2) [code [facility] (1 of 2)] Future Scheduled [address] [facility]00 (procedure) [code = [facility] [id number]] Future Scheduled [address] [facility] (procedure) [code = [facility] 39207794] Future Scheduled [address] [facility] cervix (procedure) [code = 127431236] Future Scheduled [address] [facility] cervix (procedure) [code = 844188653] Future Scheduled 1974 DTAP/TDAP/TD VACCINES [facility] [...] 00:00:00 protein (procedure) [facility] [code = 876753313] Future Scheduled 1965 DIABETIC EYE EXAM [facility] 00:00:00 [code = DIABETIC EYE [facility] EXAM] Future Scheduled 1965 Urine screening for [facility] 00:00:00 protein (procedure) [facility] [code = 553595094] Future Scheduled [address] [facility]00 [facility] breast (procedure) [code = 456811789] Future Scheduled [address] [facility]:00 malignant ne[facility] of [facility] breast (procedure) [code = 556314412] Encounters Start End Encounter Admission Attending Care Care Encounter Source Date/Time Date/Time Type Type Clinicians Facility Department ID 2019-12-16 Inpatient UR PAT MOHAMUD [facility] Nephrology [id number] [facility] 00:14:00 2020-03-28 2020-03-29 Emergency Clay Fine [facility] [id number] 15:50:00 20:31:00 Maureen Terrazas [id number] [place] [id number] [place] [id number] 2020-03-28 2020-03-28 Emergency X BABATUNDE NCDEREK ERT [id number] [facility] 15:50:00 15:50:00 CLAY [facility] 2019-12-16 2020-01-01 Hospital UR Pat Mohamud [facility] [id number] 00:14[facility] 10:00:00 Encounter Lisa [facility] 2019-12-30 2019-12-[address] [facility] [id number] [facility] 13:11[facility] 14:14:[address] [facility] 2019-12-30 2019-12-[address] [facility] [id number] 12:30:00 13:19:00 [facility] 2019-12-28 2019-12-28 Surgery Belkis, [facility] [id number] 12:00:00 12:54:00 Sakina Higgins [facility] 2019-12-17 2019-12-17 Travel [facility] [id number] [facility] 2019-12-16 2019-12-16 Orders Monica, [facility] [id number] 00:[facility]00 00:[facility]00 [facility] 2018-11-17 2018-11-17 [facility] [id number] 11:30:00 11:30:00 [facility] 2018-10-06 2018-10-06 [facility] [id number] 16:14:00 16:14:00 [facility] 2018-09-28 2018-09-28 [facility] [id number] 10:30:00 10:30:00 [facility] 2017-09-22 2017-09-22 Outpatient DEMETRA OLAYINKA ANTONY [facility] [id number] [facility] 00:00:00 00:00:00 BIJI Results Test Description Test Time Test Comments Results Result Comments Source ANAEROBIC CULTURE 2020-01-04 10:26:00 Test Item Value Reference Range Interpretation Comme nts CULTURE (BEAKER) (test code = 1095) No anaerobes isolated Tissue [id number] 10:21:00 Test Item Value Reference Range Interpretation Comments Case Report (test code Surgical Pathology = 104) Report Case: [id number] Authorizing Provider: Tala Santacruz DPM Collected: 12/30/2019 01:38 PM Ordering Location: [address] Med/Surg Received: 12/31/2019 06:52 AM Pathologist: Jovita Griffith MD Specimens: A) - Soft Tissue, Other, left 5th proximal phalanx B) - Metatarsal, Left, left 5th metatarsal DIAGNOSIS (test code = [id number] 3220) FuZzEwMzNcZnRuYmpcdWMx KSdsvlDnCCzdl6QdD9UbAg AwMFxhbnNpXGRlZmxhbmcx NJVjKEQ2qzEcXXQzJHkjCJ WnVYivUb2keSQzkJqdBbPp WMYjw8oejmUIljhrtJk9j0 liFGWdJhR6eIYtRIlqB5hi jhWsxDRpMRSdHEb8rV13PK HevR3auDSnVJaknuZhEtA9 VUvaSHJsHaB6TENviUNaXS OpL5vyKCHiKObcYEEqTOmq zYZjQWV4qDaax6V3sELhtJ CibSdqHjJtSaWgPCZZg7Hw SXf3sJncN0QjGEZzLlX2yW QgUGFyYWdyYXBoIEZvbnQ7 aZ39MErwzpJ7oUVgd5Nhl7 7oy487dX5xsNJxBYD5XIPk HTPhnEBxCNTrCDD9OTVxyK MtW1m1RyRlpFJrT3T0WgZj zIJyI7J8ErOpnSMjK0D0Jf UjnSOpWWWqqOOgTd6feMVz kXAfub9wdg23AHE6v7KimB uiJEW2ELH0UpQjZt9ehTIr IZTnWL8wXiEneDZuMDCxfr 01jErdSYfbegBftF7pUoHl SEZuhBOdPXFcJK7xbFWfJM MxnR6qagvvKNToXaDgnoov ZWOdsZuehnCwRa7ldGpeIW C2DKmxI9rxdY7eXlP3BRne T1gyxZ4ySNb7CZkzyDD1CE ArnI7sVP1kdwozz2ugUgXs LD0rmbkfi4awPkEuTW9qmk e4w7tgGtQdNM3vgnygt8bz NzIwXGhlYWRlcnkwXGZvb3 IfwirrGQNhw8TnK4LycRco C66xmCxwR55oASXqjQxtzP 3iaImaoD3pQtXoYkVhTLle bFxwbGFpblxmMVxmczIwXG xxnlqrORTyVSswH7mfBkAx EVHkwXdqSRawo2WsXWCpWV UdXaEySN7pCw6OAEboNKFW HMGOPBZBUJIQUc6XYS0RIM DDNSCQSS4ONUBUFN6KR3o9 CNWenrIeGMYfBODSXY4xH7 bHELUCEaLIGocCMJ8LVTMV UlRJTEFHRSBXSVRIIFNVUl VSOK1MGK2YOLMEYMCVWHYS RCBDSFJPTklDIElORkxBTU 1BVElPTlxwYXJccGFyIEIu IEJPTkUsIExFRlQgRklGVE ggTUVUQVRBUlNBTCwgQklP UFNZOlxwYXIgICAgLSBBQ1 GCNBJWK7KFP46YYYuQAIqX IFxwYXIgICAgLSBTRVBBUk LGSDJRVjTBIVKEOPPwT1Af YgmBTm0XT59JASWSZFGJPR LKT8DTTWSXWCIRLCMFV2DJ V6KlZN9LK7AHE1hVIGVYEI BHUkFOVUxBVElPTiBUSVNT VAUqEi2IHVCYGY2UQDAziw 54KFV5AcLjo4C1HJM0SPOw TREyp5rxFFSldPIjYgJpUl NcZnRuYmpcdWMxXGRlZmYw k3frl017iWAif4gkFPNlBi R0fGRwHSZaoLWgX775CUVr XGvzh0hhc2KkVOKuxIEzb6 K7LYHHsjyprOr2oIcpL42c f0P1JgpkM8dmHRUuDWQqN6 DgKV2wNQNcOvw3GCP9JKD3 OUXxBENiT4HpIP6kJTGjtH NkHCm5b7teyQueFMZnMNH2 v3zuLTdwrcCnEG7nih2icM w6s5kthwQlWBBlFTZieCVZ DODdY2LzoLjtBq9riDr5mF ltKwqeIEP9Nzd0GX3nhb87 oef0vTzbQJWjfvmcEhY0XP axGPRfooykKOp9JVotAENk aUE4EGJdiMQrM6BgZXNlAZ 2igmt8VVN4OKgpAPSgLkF7 NDBcaGVhZGVyeTcyMFxmb2 78UDO0MoMmIQ2yB3Hcc8X8 lS3fuRKlOSQshSWpWuNfML Jpzq5snSPiLLspw8YqBYN4 rhR6bTDwmSSbLVCnZjX6FY sdGR5zqj99BNAiGHJ8do5d bGNccGdicmRyaGVhZFxwZ2 TjJHYab045UHRwI5WaONVz n9J4plDkZoNqPBLlgAK0uu J0NIBtZN0icfrlh0xdMBkv WMpeBJFbhyR3sfX7WJEmeP CkQ1KhkI6zVXFqAJ2uwyxx k7zqIWV4NFfuTYLdWFE9Oo ShMSWox3Swlol9NyWli2Sh gTJmEDucH14vv392GHXddd EgN3bmvUUtinpkzVCbefje UHdpeuS3KIJdNUkxqmwxXS LiJOglG4oxXrXtDZNlbDip WDaao1LuOYGlPCMkUjAtbC ZaSJNyQvt4PMIlsLHoIMXp OmMzQ5pqhufjKiZCYZXxz4 lzX2tzfQUTnGFvT9QsNXtg pyWbSQwrLCypKYJ9HGT7Zu 36HoZ9AWOmou31 CPT Code(s) (test code j4gejMSlKGVtlZNlIuWgFY = 3357) AyTCPfj8prPKLmcGXpAqYj MzNcZnRuYmpcdWMxXGRlZm Cqf6psi264fFWag6tzZRPs GeZ1tVNqSFUiyPHjX666e7 xde7wbxaPgmOL3RPLyMGB0 WYvftcZrumR5JZkpnNShTi C4XRuwmkVfXIfzgvPmjuHy Emb9QLBeJ717QOM9jPova8 kbQXE7BONmARLwOxPoPx7u mJMqP122RYJnEXAHEBYzlN h7SQFroiUjjqPgtPDLw561 W566h5sqRYYvgnZclAaFhe fhn5nxO498ZJWgwCHdqiSw XdOhNVWdoJGqiJC9GJDmZT 6tukubKmVlNF6qumtsRvYm XB5xcpr1RhZuWN1nnfkcId DeITluBZGfuyiiOWTcu3Go cfciYO7yE8Bex1H5sY6moH DaDHGypICvPyExHLFzdz4i pNMoEEbwx4NnTLE3hjF8lG VwrTApKEFnCY41Ethvh8Sk JpjrSDF7XORbllEbe7Bwv6 ztPrFmbqCoF3qyV0FbYTDr ESJyZSCsKgLmctZeb6Vba8 SpgNOxoEe4b8iuXKEoMRKf mZjie6ezEAI9YVHdY7T7zY Gzt1sjGMwnVPLmtQV0obuj HUhwYWXdsiG8ocmsCFlxSH VppNB5jfssTRlbEHNaKyY3 hstrLWwvXAIvIHW5EAqen7 78MCT7AKeuAbflZLzoITAq bmNvbnRccGduZGVjXHBsYW luXHBsYWluXGYwXGZzMjRc yUhxvLuvdQ3zSlKwTwHtPA tvCD0rRDJuW9aouMUrBLMl HQXiW1edMsDwgW0sxNynQV kiveRhXI9ZB9O8YGDhkaX6 GIPeRhY1BpjaUMPeSDemPT EgeDJccGFyfQ== CLINICAL HISTORY (test s7qwgWJeOAVxsMRvDuXyJQ code = 3356) ZvQQJxe0heOKSxeMJtYkPn MzNcZnRuYmpcdWMxXGRlZm Adx1dry287rKJif4usUCJs AnV9zBZiXYNobFPcY530g2 ghj7oxloCkaDI2AZHwJBE3 HJtkcjSmjnS5ZHczpKJuCu P1VPomktElXSpklbVsrxWm Xvz4FVIsT766PJC7tLttc5 wmMKN1MWLbECEhXnAsGf1u kYEuF993GNJfCYWLSETljM s3CRZjbjKognEbmHQOg825 I456i2jlIKTjewYcyGjCmb skp1bhI268SACafMIfzjAj TgJrNBNwaBQqiTQ8BDVrWV 8dzvhbDvIaFB7lielsZpKr CW6laum2SpDcEC0njolvKu BrCYvaAFFuzomxYXAgv5Xq ugxuTI7dL7Pbp2K1mW1zdA GcDHPrrNLgWkEnBDMemu0m jJYdMRerx9SdLCL9xrO9rS NwtUBmYEKdIK76Syfbl3Ou QuwnEYZ3VOLfzxUaa9Ihq9 baIvQhpjKtI6bfZ8VzXTNd ZIQoLWIeInBpjaYkq2Piz8 SoaEOuhIs6d2ffNICwWUMg sGvcg3buKHE9BKTbQ9J2jV Jqg2epLBwrFFNxuJJ5twtl ACgrMQKqsgZ4yzxwEGmdYY ZqaIG1nyxxDAqjLKNoCnY2 kjvqNBntPYWvESM2NJosx6 81STG9LFsvChfeWUmsXVXo bmNvbnRccGduZGVjXHBsYW luXHBsYWluXGYwXGZzMjRc yEwbiZsxgW5iTkRpJrPkSL esLR6zUEMfU0jtsWLpSOWe YKLnO7dyKjNczO9dzYzxYD gresPwZA2ioNXpkOyevWm3 aPNge0KavNAtjKE2bEjvzV N9EJEsdmJjjUkwlIhiCKHx w9NgOkdsLLHiubZhYSSyGM RccGFyfQ== SPECIMEN SOURCE (test k9cijIWhLHKunIBsZdVxND code = 3377) QnIZPgp2cvMSMwwLEuEqLr MzNcZnRuYmpcdWMxXGRlZm Owc0fjz938dNRyr0xtQRCx ByT9pUZzAEGdzUOkI353j7 ysj0zwktUxnRI2HQBoVDL0 VRnzqqLczwQ4HVsmvUNvLn Z9GAowvhWdAPbpsbJmseXa Xok7XSXlS685NZZ0iRfpf8 xkQUA1OMInHOHlPqTfQn2r xZRiH709BQOfCBZQZQQgpP w6ZLVubcGskvPidXOHh973 X671y9qxCFZfyjHaqAkJxk mod2fpI536DGOhsJFkxqPc TbHyJABgvVZeuZU6MOHvEZ 9hfeklOqOqDP0tgrjdWvIt VA5ttlo0MyMhMF7aezahOn OtZJtkOGYvvvaeVKYoy9Wi fwjaBK3wM3Dbe1H8nO3zhE UfSSNktDYtNlOuYDHjfl8c rMJcDEdox1YbHRU9nsW2eA SqvFDsHXArAJ32Zqgzj2Du ByxeVZA4OLVwvwBbh3Ztq8 dqWyLdnfNcF7efV0KrGOUo EXPxANQfEmKzawPqn6Ezj8 NkdKAxaVq4w8bzPHAxISLb kZcbf0muRKL7YOPiN6E1xH Sja3jkXMweOROyvRV8fupo PYqsYFRzlcR0ehkjWDasOB IfeDO8ciypRJajAVJeKiO0 gqfqIOgpQRKoXBG9VVikh8 27GDA2UBcsCupbBPreFSFe bmNvbnRccGduZGVjXHBsYW luXHBsYWluXGYwXGZzMjRc sKpdqIyyqO7aBwMtBdHwLA dwND3pOEPfL1cauXZfMNWf PBKgS6euYeYnlV6lqFiyBZ xmczIwIEEuIExlZnQgNXRo JXJbr0dikOGkZKRvJJyfin tvRAMnIUhlMyLmZBDiOX3t xWN4CULaESasVMCpwc2= GROSS DESCRIPTION (test b8bfzVShOQTzuTCkChJyOT code = 3366) LyOKUfi6brKNRxaAHhPbTj MzNcZnRuYmpcdWMxXGRlZm Rxg4bdj790sFQld4dwIRHt UgR2zAIfXTIhvOMjS826DJ ZkDNthl0sim1ZqGKXwfDNp j2R8MSFWpiazyDk3qRliG9 0si0Q1EvnsN5wsMABeLPRt H8ZnPJ4uNREgEwa2CBO4CX T1BEOyUUMdX3VdXW9fMANd fNNhDUh9g3utwNsgQZWkRP G6w7gbSTfamrMaLY8gel9p jLz9b9rwoeFvAGEhQAIvhH MCAKChK9QnhIcyYb1efVf3 yIezSfsxKYC2Eav1BS9ugu 98rnu1bCoaBFLfqkzvRqE5 NWgmLVJocsnhJSk3WIhvXO JnbDcyMFxtYXJncjcyMFxt YXJndDcyMFxtYXJnYjcyMF kqFRZjFAY6UQgtc047VGG6 YNtbs0yii4dcpMZyFbf4NC BvLuKxQlrdRNduf4Pdq6yc BOPksl6wTLC2uYPznOakd0 P6oJPwINNpyVLqzvVpHQIm PcT8LIvxXO1znv78EQLmJU A3uz9wdXIhoDruadWryDDg NSonA1SzVGFin411TWFhW8 AkJRSpc7S8lgYoXuBqQJUk aRQ8psH3IGZyVDy4nAKjxs Q4yjDksDEfE5iwcB01PeVt gWLuL2BdsN13KmSvcKYjD4 AxaW28NhXxiWYeF9XmtO00 YrQpqRYoVSEeqZTfCj8hwW OftOJib7EtgQGwGZpvN04m f294NDKddvGoP2awyBKsug iznTBoqzoeIMwhwyI5PKMe XHBsYWluXGYwXGZzMjBcbG FuZzEwMzNcaGljaFxmMFxk ImJsIMTtGSysT8vdAxSxLq YdNURXtTOeqO6awxJCDDfk VULhP4ItutZgUFihPCQphS B1kXKnWHliKxWwJFJzh2k0 zIQ3mHVmrNI1zGVwhUolCM 3yhQTdJF7oNW8vDAxbTCyi ehDdq0HcDN03lNDcelPlkv QgZGVzaWduYXRlZCBhcyAi i45azZH4eETluGHiPP09rV LzBjghJ82br6hibZYbb8Ha d7vgqHOmvEKltC28MVGdtr WkVyXlS14cozSoMD3xMXM9 cmluZyAwLjcgeCAwLjMgeC CoIqTdT06sXJTpXDVetDGv kT8zmtKvttCycNPlwTC5QJ BaIR58eQHotSxfqC42rkQD ATOsgzTsqV74gmNbPQOohU Lgt9r0yMtuqz4vgAAqRIRf pkLRxINdgE4frbAUJNgxSX SoB2MwuiMlHPxrNRMkcHF8 fOGrHTkrEgMpGWTrd9k0kJ X6qGDcrVE7tRRdaMddRS0z vRQpRJ5gOC4yJNkvJEcmgm Pvj4FsHY57zCQfafRkjrMr ZGVzaWduYXRlZCBhcyAibW P8WPGoksClnHSpRZR9Uuve O87jd9qqdWHks4YqPw45cl FgGPMsDkWuf30wkZqwt7Bw RHCiJKSle40yRXPfRPwiMS 18cfRfKVPavGNxyijxVk1x APfoOI43YHqiJP95OPPlCN daIDTjF6WlO1N8PV1chCpu IHNwZWNpbWVuIGlzIGVudG qlAGo6ZIgrvZOnzwldOTby czIwXGxhbmcxMDMzXGhpY2 vfOaAbQSOtiUijHLrno6Gt VGNeGOEjCwHwVlYnLT7aZI xhhJ6iCSAfWLmpd95bfQZj p32yVLPiCGhdXLDeIAOcNf BcbGFuZzEwMzNcaGljaFxm FWwhIbUfRFQqFLbhF2zyMz BcZnMyMCAgTUcvZXdccGFy fQ== MICROSCOPIC DESCRIPTION b9otnCXjFIQcxSVtZxEoDJ (test code = 3371) QrONSzg6keWMPvmLIaWhZo MzNcZnRuYmpcdWMxXGRlZm Xpx7wkc160wKYts2upNMCq BtU4cKPmDNDtvKYyN208g1 zxn4vjubAbsOK4SJLiYLF1 QBginqVyosB1MAxoiODpXn J7RWmaxrDiOEdgjnYmxfZh Yet3RLXuR820OVX4cQiqe0 wkONR5EVFtNFWtOtUyGv3a nETxY769KYVtVSQPZHBxmJ r3KHWqxjHtcdNcrIXLi427 B291y2jvBFQdpcRqaTkPnl bsd0rrO620TLAqtXYvkaNz CqAfIZSkoENpuIG6VYBfMZ 8mjqbhYtQcCA4iwydlMpGv GV3csda7GnEkYC3tfmmcNm FzHIaeXIYhzqveQOSdj0Ks bphzHJ9gR1Ung3Y1rD1dsN SiRARhhMEeYfEgQCMrpr6i jZTeRHqxc1JmAWL8pyI6mJ CfgYZhUDVhPE74Oizkb5Sv KcwcAKC2MWUwkhCkb4Nkn1 njNoMyqgIhW6bbQ1DiCPIp HIOrBEExOtNturMlh3Yoy6 CriNPzzKl9r3wyCQMeTVPt hOccg7ejKSV2CFIaJ2L8eY Cwj5atGNqjRGTwiND8pews WSoxKUGaseB5panrQOwgFI KhyAK2suuuLBjaVIOzTtR0 fmxdIGomGENmMUR5VWzqa5 05SNZ3XQjqSlrrRRseVMSf bmNvbnRccGduZGVjXHBsYW luXHBsYWluXGYwXGZzMjRc cHrrjUwfuV8iGjPdXpYwFO ckFC3pHWSsX3rrvVIsIFUa VZKuB1qeKcKpcV2aaDubUA gxmvVoQNPkMe7lOPDlJq3j bWVkLlxwYXJ9 Gross assessment was [facility] performed at (test code [facility] Department = 2777) of Pathology, [address] [place] [address], Technical component was [facility] performed at (test code [facility], = 2778) Department of Pathology, [address] [place] [phone], Professional component [facility] was performed at ([facility], Department code = 2779) of Pathology, [address] [place] [address], [facility] [id number] 10:21:00 Test Item Value Reference Range Interpretation Comments Case Report (test code Surgical Pathology = 104) Report Case: [id number] Authorizing Provider: Tala Santacruz DPM Collected: 12/30/2019 01:38 PM Ordering Location: [address] Med/Surg Received: 12/31/2019 06:52 AM Pathologist: Jovita Griffith MD Specimens: A) - Soft Tissue, Other, left 5th proximal phalanx B) - Metatarsal, Left, left 5th metatarsal DIAGNOSIS (test code = [id number] 3220) FuZzEwMzNcZnRuYmpcdWMx IXbeayChHBybd7UcC4GkAn AwMFxhbnNpXGRlZmxhbmcx HXDbONB5cfTeJVDoDQczZE MaBOhjJr4bkJOidPphHjLa LYLgu8lamgAOvnfqaZa9u1 uvHUQbRjK7dIQjIBfoF1cs nxFzlLCeHEGiBVd9jX58CX LjeG7keFHwHInjggAzRsV2 KKlhXYEeJdE4NVSbkVJgGJ QtX7nfNIOwQWllJDVbLYey hZDoION4jJudd3M2zLPkvI QvaGpjRfUlZpVqWIZVp8Fg QLo5gRmuM9JsUQIiDcF1lB QgUGFyYWdyYXBoIEZvbnQ7 yP59EUztxgY2kYEij9Yoc3 1oj097dU7xbIHoEMB6TSVj BROouSOxGIKdCSL3GJJwbY GvQ4u9AhPyoAZjC4B5LxFo lEVyN5I2KlUjrONbT9V2Cz LwrIXoAEIxlHFjVm4bcTJz oRIfox4gsv78VYO4r7FoqL ndOLY2RUY8FjJmVa2fvCVv KIKmST4hIgNjeRPfNTPyiw 63aHajKTsmdpBheZ5rXbMh CXCcbVScAZAuRW0vwKShCY RbyH3hnfhrRAXaFhSioabz OQWhsRhbxjLuPw0etKalKY M9FWswT4vrdO2fYkT2XZzi K0loaU4rAHa0HFvymYV4RG EptR8iUQ2jeruxd6snXfGd FK3evappr4ukOhMkFD6mpl k6d2dhKhQwJC0wegfgc8zf NzIwXGhlYWRlcnkwXGZvb3 ExgdtkIVAfy9EaM8AaqNha H94wkVahB77aSUDzuSbxeU 8fsLpjpN2jQdVgZbCeCQzg bFxwbGFpblxmMVxmczIwXG gtctdfLJUpNRnfX2rsNcWj YZHwfUmsDLupc4McAPRjLK AmYtUpNZ6sZv6MXIfhZRMW IKKIOIZCZZSVIc4ZKN9POB ZTWUTWYD8TMUZQIE3WM8w0 AAUpshMbUXRuZEAPFI1kY1 lKVAPMZpNWZfzMOL2NEAYG UlRJTEFHRSBXSVRIIFNVUl IKNM6OTG8UGKPGESOOMWQQ RCBDSFJPTklDIElORkxBTU 1BVElPTlxwYXJccGFyIEIu IEJPTkUsIExFRlQgRklGVE ggTUVUQVRBUlNBTCwgQklP UFNZOlxwYXIgICAgLSBBQ1 FCSDIJO0AAC48VWKcXNYtL IFxwYXIgICAgLSBTRVBBUk URLSCUSsLIOGREXEBmB9Gt JrlGHs5RX79DODGIKBRJSP YKD1CPCQXVUEHACDFXY0EZ R7OsTF2HS8QNQ3hWJHKAAB BHUkFOVUxBVElPTiBUSVNT PTZnHc8ICSSOYE8JQMYfty 39HSL4DuYhi0P9TJO0CDAm YNRtd0rnTHMyeETzDaTtWs NcZnRuYmpcdWMxXGRlZmYw r3qlu767xJQnq6xrDKBqMc U0lWVtFMLzqTOkU459XZTj CNpbr4cuu5ObLLVlyPHzf7 V3SFMYabddbYh3sWmgS11n c1N9IpqaU7yyVSVuBUMwP6 FgOI8zSEHyOoy3WNG6WBQ7 JEQrQKJqT5KuVF5pMJChrP WiQGr7h7pinMomAZYtEXU6 l9tdYVlncbShDJ5wcz0oxH j7e8pmzkDbBHFmBQSpfFVX EVLlX1TtuAheOd8drRd6yH nfIjvzFYM0Ysw0PD6gbm50 oze7xZpxNXGdxmjmHcD8JG viCPGiozpdCRy9FCusFYYw nCL5FESdlNLzL0XaRZCxBH 4mbgq8QOX0MDpgYLInOyH4 NDBcaGVhZGVyeTcyMFxmb2 75FCJ6EeHtEF5nX4Vlr8E2 rD9lvIHyJGGuwFSyJoCaKL Khmi9ksAMmLQolk9HyVMI0 zhY1qCFunBJkHHFlKaR0ZO piTQ0pkk86RDRsGLZ1ao7g bGNccGdicmRyaGVhZFxwZ2 PyNGJxv718RHZpY7NgXWWh w3B5veWgVdEfCTFzwYD5ul Y8MJEpRA2nhwujl2zhGFmw LLczXWPzjzL4faN8ZVZkoD JjU2HoiM9cCAAkAO4ozfqd h7cqKUF3OOexXZYvCZA8Yj WqKPUna8Tqzbe2TzIko6Ea kFIhSEbiN91eu437AYVszi VpF2kcmGPvhwrsrJMthrmu SKcaguY0AXZpPPnnfecwAQ LjDSvjG7fbRwRqXODeqAlj OCgis1RlSGHuVWErStSbsT AfLLCaXyp3HLCypPGbULTa QzJsW1zxbvalCxCGTNGmq4 asM3qnqLZKiSPnM6QxDLcz gePlDOckGGihHEK0ZEI4Qh 08IbT4DJQxfv48 CPT Code(s) (test code t4mgqUMpCNAxgFAdObXdXC = 3357) CaWVSnf0zlFCJaaKKfMgZr MzNcZnRuYmpcdWMxXGRlZm Xgr4koa673kPMrx5euSCIy VrT1uKRhCMMwpWLjQ458e4 dbj7zutzCqdJP3HJWwJDC8 YEpclgBueqC8AVnxiZJfVc U2REegauWgPYlusgFtbrSr Udu6PZHlP524MRH3xSzgx5 nsVUL3WALeCLYiSbTbDq5e aWYoQ933ELZiXPQECDBzfK z9KOWxsfPuciTycPUBm266 C293w1vcUYOrinDhqPeZio wfn7zzH315LUAfrACgetGa EaQaICRpaGVnvJI5LSOcUW 8fsrxwTnUfMM3gvwxqDeNo RM0uwdq1RlKfWC5jalxsRv JoVRlcERDnyevsMWCqe8Po ryrpHO0uD7Xtk0J4kU0nzH HyMDAsfVCdHqLzXRMjis7l dGUuYQdaa0TsREQ8grY6uA NrhBGmHGHdKQ57Jgbep6Jg LzbpDNQ9KPLjnzBrh1Dim6 qqVkMtacJeQ3btP1SwWERv BEYaOZMdYoFmacRko4Apg6 GboJHzpSn9p0hlWGYfRUZv lUhbz1khGMZ4VMLkV1M8wI Qtx9ikBJeoOHBbqDQ9krah MPhrEEZhwfU7dwcjAAmjHP JncRX6tfewUBvpADAuWsD9 gmhcGTlzQVVmONL8VFslz3 62ZXA9GDdmKdfiYRkeDYXk bmNvbnRccGduZGVjXHBsYW luXHBsYWluXGYwXGZzMjRc gDwurWvvsQ0aSfOxBvYnMT mwNU3vXGMyA7xmhUShVXOm PSAkC5tmJtFfjC5biGozQS crkdVqUJ1ON5J4LMQmzsO9 HCUxWdC5YkxzQQPtJHkxCL EgeDJccGFyfQ== CLINICAL HISTORY (test l8ietAEoAIFybVVbZdHrMH code = 3356) ItNBBpn0iyBPIxcELrUfVk MzNcZnRuYmpcdWMxXGRlZm Nzs5ssn861cLHzr3jgNIEq XpP4tMMaQKFizDWwC274k2 sxr9urvfSzeKO2UNKzKDA1 TQuozqMpqhH2KVauqNXzMf Q6LDkdoqGoAWiapzEaugDc Qbw1ELPfO956SMN7pPhvi3 waKRE5LASmCQBdSzWfJt5a uAKsU607FFQwBWKTCHXguJ n2AJNlmeLwcgYhiIGEt490 X358d8hzOVEixkHslPyHgw ozv0rxN892KUJmwIPpzoGb VlQrZULhbYRnsOB0PTGjJW 9awojgLoHwRM4dibbeAmAk HZ4esuh1QhToJI4fwdvwCe YwYDfeFWQqyfqfFVEda1Nr ccbcDF0wW8Wlm3H4uN3klO NhQDEzeTByStBpYASgbk5h eEOoBGlsf1NkUSH9egV9xN IdeYNjCHJgSF50Gfheu5Ze AlgiUZB2JVZbdhSrl3Esa1 smQpRcdeAjS1qrL8MmMLJb RNXiEKUpAxSbwjHhv5Ddc9 AoxYGqhVl4t0ruBIKpRMLz dSwzi5maLSZ7HGItM6A1jN Soe2bgTMjuZGTpjLM7iymx KYocBBMthlI2jqvmXHvfVM RdjXI0ikfbZOwlWBAcFfN7 vmzkBQzePETgYWV5FLzok4 07RRH6ASkcTtokRFijAZOg bmNvbnRccGduZGVjXHBsYW luXHBsYWluXGYwXGZzMjRc rPvzeLoulO1tUsAuUlGbUU beXJ0gISGnF4zdyLMfXUDe DZCqB4tyZuIahF6giVpeYV bhigMmQJ7dqXVsaWcsvZb4 tEHjn9CqmKZyyZG6tXwxvH F5YLWajuXchBvnhQqeUAVz b7ZpKcugEFVojsZtQFFzPA RccGFyfQ== SPECIMEN SOURCE (test y7dfdMXtIRRhlPYdEjBpDR code = 3377) RaRQMus7mjONVocQEhCkAe MzNcZnRuYmpcdWMxXGRlZm Kjw0yre185nXQjn0dxRZOp FnA9hMDaDUCvdSAzU178d3 ggm0rznzDjaPS6RFWbXLJ4 CGtrldQdvyU9RUvrhLJdCj L2GNozihNrZOyodxKkpeRy Gyc1EPYpD379MBZ4vJftp8 ppWGV6ZRMxAMOwHwJzSu2o wTZxL934WEJtMSXNKLBqyC b6ESJnuxVayuLwbPCCk302 D306i2jdNAGfteIpnMiChg mpg5cbR076OLCzoREnrjDz NkTjTIPkqIIdwWY1JQUoTF 6sjhxyBjKtSN4aacitBjUz SS4ocuc9OzNyPU9cnhceKv EfMTtcBGGfftteVKUdi1Nx ovqzXB2fK9Nra7A1dU6noM TbVURlfBPkAsWvBRDsdd0n kYEgGPdje8PqTPC4ejY3kX VolQMyNCHcJL11Rwgep5Uk JqpxHBN0VYQpefYzy0Swc5 ntAgUmhyNjM5rwW6PxUISg YMKwXRPsXjWojeDma7Hua9 XlmHYhmRx1f1dpYDEnQOGl gMeib0vgSLK7YMVyP4S3uR Lui8mwWPbkAYXbjDV7ggtp NPjfEMNxlpH6wmtnDEtgEL YpvZY2ypncBHziTRHxTyD9 iuzvZMnpGZPcUAO4CEpar7 33XEY0HMufLrldVZuiRICk bmNvbnRccGduZGVjXHBsYW luXHBsYWluXGYwXGZzMjRc nKuxwFrliK2gNcTfAlZdQS obSS8sWXXeK8ofwAXuLPMf OGNkR9xaQbUtmV3lwAlhNT xmczIwIEEuIExlZnQgNXRo THJyf0qvmLFyCPXkQHyoql gpKMCgGAfgMgVbTLCfJX9h oQD4DEWpEQknBJQcok0= GROSS DESCRIPTION (test q4qnpAViRLUywFTbFyRjVK code = 3366) GzIBJkn9paGNEukHMoBeNb MzNcZnRuYmpcdWMxXGRlZm Zxw9tea625zMDdo9dsRIBn XnB3vLCsTZPnkFDsZ310AQ WnSYotx3mbj8LfQGDuaJCf s9I6LKZTvcottFl8aMroY7 6xn6L7FelxV3vfFITzLYJz R9PyHF5nHPRoDsj4VTU9NM A5FWGaPZIdC6PsBD8rBLGa uVYrHUu7w4mlqUpzHPWvFO X0a6frEWlcvqRhSA1fjr2e dNn2k1bkodKqAZHzQDBwfA JBBZNkT7LdkKhlIf1bgRw2 tAlfQatxWDM4Hel0PX2pbg 92npd0jXocJAXlhlsgXqX7 LJzkEDOfmgwaYHr5BXslKR JnbDcyMFxtYXJncjcyMFxt YXJndDcyMFxtYXJnYjcyMF tbKDDfXAR3BLvev817RHA1 QMjsj4jbx9cyrDUeEox1RE UhEcOzJwimZXjao2Cub4tn HQBjzb3mKZR1wDOuzAeig1 A7sPNyNPJbvMDuluFzWBYu HdS3YZvvMC4hll20MHYtFN O9mz2anJAudVjkxzZljJOx MXyhQ8HvDFCmq661VYRfL6 VaSYFqc7W5fcZjUvAeTCLw lLI6bqV7AQXmDNo9nPHiii M5buQdfKQuE5tabL89ExCw wXVmH6DgfV38BvHjuAJwR4 TxtY33HwDlfEAiG1RhlE14 OcJpzMNvYFCbbOAvHx2dzL YmtJSti0GvsXIzSKiwN30y u562YGJppfZgR3gwcBQusf mayWCmsczdRQoknjO1NYEf XHBsYWluXGYwXGZzMjBcbG FuZzEwMzNcaGljaFxmMFxk BwRoBVDsREysB2wpClNoMv WpHVOAwHJpcA6swmLHJOuv RBNpR7GxafAxJFapPNNjqG W7fMGpRXulEkKuQKViz0u4 eUP0kPYlvBV0eXUwbWorMU 2kwJKyOT4dEL4xXHtjMMau yoJne7DmTA61bZGznmCehm QgZGVzaWduYXRlZCBhcyAi x84wxCN1nYBsmQVlAW71pE HkZkzlN01wh3bbvIYga3Vh w3zbmTRjpHWwmC32EBFfoj FkFsTyU87rcdVqFW2jCTB9 cmluZyAwLjcgeCAwLjMgeC HjUkRfX34jJVVfDJObfDJm qC6oezYhbbTufILhkXU6JA UoBZ21dDKjbRtrrI85upDA ZFTcttZowI79miLtVHGhgL Gxw2b4qGiltk3zlQDrXCGh xqZLeZCrbI9sdjAZJFhxDO KbE0HoohQaWPjhAOOmwVB2 cISgUNyjMiQpQYTfo0n3mL A4jXDrhCY5kQImpSubNR8o xBHxFQ3lAD9kNOueCZvqmf Jdl9AtYA29cCXgmyWxemOc ZGVzaWduYXRlZCBhcyAibW C6SPDycfNskFPcNIB3Ygkn B72lg8aprMIlx5MrPr54rh MmQRUmJwFwx01fqXitr4Be OPIpVRHsx97kWKVsNSgrSL 01ewPdDEZleKLsntthIh4i OKctCW22CKssKO09IKRrGI gnZNNjS7RmU6V2DV2bpSwf IHNwZWNpbWVuIGlzIGVudG nsGCd0HEusnDFykbeeALmn czIwXGxhbmcxMDMzXGhpY2 vaQlWiWRBhsLwwGKcmw1Zk FWNvKMGpGeCbDpAdTM8eEW zdcD4mVUYaNNzcl10joVNp m56vHLPzZNtrUQJtYLUiYw BcbGFuZzEwMzNcaGljaFxm MIwuPoIoZMXsZHriB4voWg BcZnMyMCAgTUcvZXdccGFy fQ== MICROSCOPIC DESCRIPTION q9mcxMOhAQUcyYOiSoWfTR (test code = 3371) QoDAGqz3miCSRhcCQjToOb MzNcZnRuYmpcdWMxXGRlZm Rah6nip072sAYpk6maZGGu KaM6iGRlTLSjwYUaE700v0 vyy9kzyrOcyGD5JUZvSYE6 RIaplyVkfaP7JMwgvFHfPr Q2DGwljoMvTUlflsPyxyWb Rwv0SVYqB645AJC2oPssf0 wgNNT5QDEbYXFrWtDhYu8t tLGtE465VZLdYBNHPLMrjW j9UFZvpvTzfsJmnMSDt996 F291u9rtTOKafqPboJdAuk fni6lgI765KRFbfTJorfRh FvAtFNVboGBokDH2DTTmRG 3mwjhhJwZdOX5cushwXgLe FP1rube0FsZrBN8bxwunZn JjMXfqOMTijvsbOJQbp8Qz judpRP8zL7Qxi0P6zV9vbE BpFXGlkWXnAaSpQUPpud1d qONiVJmrn0KuJTK8xmE5vL NiuKNmCLKdJY25Czxyf9Os FuciETY8DXPhxgGzl0Wkj0 atVnQoueCdL4wqX5PxKSGz HWIxGYOsQuTqndKpz2Jgn4 KmkWUxiAl1k0mgPEYeLIPc uPaed5qlWWK6XANzF4X6cC Vji8jkUMbcLTJkzFJ3udfx POydWUKjdrD1mbdyOCyaBD MwcQU1slluXXkiCVCrJdD1 hwltWGqcWVSaLIZ5FHnpr8 63BLW7CRnyOgpgZQieWXHx bmNvbnRccGduZGVjXHBsYW luXHBsYWluXGYwXGZzMjRc eIymbXjxgQ4pBlKhNpGuIY paPT6pCEPpK3wutADqHVOu FLIjF2bfRtDzqX5yhEzxPU pizjAfVLXhVy5kDMGuVa1k bWVkLlxwYXJ9 Gross assessment was [facility] performed at (test [facility], Department = 2777) of Pathology, [address] [place] [address], Technical component was [facility]'s performed at ([facility], = [facility]) Department of Pathology, [address] [place] [address], [address] [facility] was performed at ([facility], Department code = 2779) of Pathology, [address] [place] [address], [facility] [id number] 10:21:00Surgical Pathology Report Case: [id number] Authorizing Provider: Tala Santacruz DPM Collected: 12/30/2019 01:38 PM Ordering Location: [address] Med/Surg Received: 12/31/2019 06:52 AM Pathologist: [...] TISSUE FORMATION Signing Pathologist Direct Phone Line: [phone] signed by Jovita Griffith MD on 01/04/2020 at 10:21 AMMG/[id number] of left 5th metatarsal, ulcer of bilateral [...] entirely B1 and into decal solution. MG/Veronica-B. Performed.[facility], Department of Pathology, [address] [place] [address], [facility], Department of Pathology, [address] [place] [address], [facility], Department of [facility]ology, [address] [place] [address], [id number] 10:47:00 Test Item Value Reference Interpretation Comments [...] negative Staphylococcus SURGICALLY OBTAINED CULTURE + GRAM [id number] 08:31:00 Test Item Value Reference Range Interpretation Comments CULTURE (BEAKER) (test code No growth = 1095) GRAM STAIN RESULT (BEAKER) <1+ WBCs (test code = 1123) GRAM STAIN RESULT (BEAKER) No organisms seen (test code = 23169) SURGICALLY OBTAINED CULTURE + GRAM [id number] 08:19:00 Test Item Value Reference Interpretation Comments Range CULTURE (BEAKER) STENOTROPHOMONAS A 2+ Sten otrophomonas (test code = 1095) MALTOPHILIA maltophil ia Levofloxacin (test S code = 22) Trimethoprim + S Sulfamethoxazole (test code = 47) GRAM STAIN RESULT <1+ WBCs (BEAKER) (test code = 1123) GRAM STAIN RESULT No organisms seen (BEAKER) (test code = 092982) POC-Glucose [id number] 06:47:00 Test Item Value Reference Range Interpretation Comments POC-Glucose Meter (test 102 mg/dL 70-110 : TE STED AT [facility]SL code = 1538) [facility] [place] [address]: Deputy Felony Clerk/Techni artemio ID = [id number] for Brown, Anne Lab Interpretation (test Normal code = 19100-3) [facility] [id number] 06:47:00 Test Item Value Reference Range Interpretation Comments POC-Glucose Meter (test 102 mg/dL 70-110 : TE STED AT SLSL code = 1538) [address] [place] [id number]: Deputy Felony Clerk/Techni artemio ID = [id number] for Brown, Anne Lab Interpretation (test Normal code = 56318-8) [facility]-GLUCOSE [id number] 06:47:00 Test Item Value Reference Range Interpretation Comments POC-GLUCOSE METER 102 mg/dL 70-110 : TESTED A T [facility]SL 1317 (BEAKER) (test code [address], = 1538) [facility] [place] [address]: Deputy Felony Clerk/Techni artemio ID = [id number] for Anne Busby Comprehensive metabolic [id number] 06:34:00 Test Item Value Reference Range Interpretation Comments Protein, Total (test 6.1 See_Comment [Autom ated code = 2885-2) message] The system which generated this result transmit merna reference range : 6.0 - 8.5 gm/dL . The reference range was not u sed to interpret th is result as normal/abnormal . Albumin (test code = 2.3 g/dL 3.5-5 L 71661-0) Alkaline Phosphatase 81 U/L 30-115 (test code = 6768-6) Total Bilirubin (test 0.4 mg/dL 0.1-1.2 code = 1975-2) Sodium (test code = 137 meq/L 499-642 4822-2) Potassium (test code 3.7 meq/L 3.6-5.5 = 2823-3) Chloride (test code = 100 meq/L 98-106 2075-0) CO2 (test code = 28 meq/L 20-29 2028-9) BUN (test code = 14 mg/dL 10-26 3094-0) Creatinine (test code 2.31 mg/dL 0.5-1.2 H = 2160-0) Glucose (test code = 100 mg/dL 70-110 2345-7) Calcium (test code = 7.5 mg/dL 8.5-10.5 L 00598-1) AST (test code = 15 U/L 5-40 1920-8) ALT (test code = 6 U/L 5-50 1742-6) EGFR (test code = 21 mL/min/1.73 [place] [address]-5) NOT ACCURATE CREATININE CLEARANCE IN PREDICTING GLOMERULAR FILTRATION RATE . ESTIMATED GFR I S NOT APPLICABLE FOR DIALYSIS PATIEN ZIA (test code = ZIA) Deputy Felony Clerk ID - ADMIN Lab Interpretation Abnormal (test code = 37279-1) [facility] [id number] 06:34:00 Test Item Value Reference Range Interpretation Comments Protein, Total (test 6.1 See_Comment [Autom ated code = 2885-2) message] The system which generated this result transmit merna reference range : 6.0 - 8.5 gm/dL . The reference range was not u sed to interpret th is result as normal/abnormal . Albumin (test code = 2.3 g/dL 3.5-5 L 70222-2) Alkaline Phosphatase 81 U/L 30-115 (test code = 6768-6) Total Bilirubin (test 0.4 mg/dL 0.1-1.2 code = 1974-2) Sodium (test code = 137 meq/L 147-147 1151-2) Potassium (test code 3.7 meq/L 3.6-5.5 = 2823-3) Chloride (test code = 100 meq/L 98-106 2075-0) CO2 (test code = 28 meq/L 20-29 2028-9) BUN (test code = 14 mg/dL 10-26 3094-0) Creatinine (test code 2.31 mg/dL 0.5-1.2 H = 2160-0) Glucose (test code = 100 mg/dL 70-110 2345-7) Calcium (test code = 7.5 mg/dL 8.5-10.5 L 07351-5) AST (test code = 15 U/L 5-40 1920-8) ALT (test code = 6 U/L 5-50 1742-6) EGFR (test code = 21 mL/min/1.73 [place] [address]-6) NOT ACCURATE CREATININE CLEARANCE IN PREDICTING GLOMERULAR FILTRATION RATE . ESTIMATED GFR I S NOT APPLICABLE FOR DIALYSIS PATIEN TSAlfred ZIA (test code = ZIA) Deputy Felony Clerk ID - ADMIN Lab Interpretation Abnormal (test code = 76024-4) [facility] [id number] 06:34:00 Test Item Value Reference Range Interpretation [...] S NOT APPLICABLE FOR DIALYSIS PATIEN TS. Deputy Felony Clerk ID - ADMINCBC with platelet count + automated [id number] 06:06:00 Test Item Value Reference Range Interpretation Comments WBC (test code = 6690-2) 5.7 See_Comment [A utomated message] The system [employer] generated this result transmitted ref erence range: 4.0 - 10 .0 K/L. The refe rence range was not u sed to interpret this result as normal/abnor mal. RBC (test code = 789-8) 2.41 See_Comment L [Au tomated message] The system [employer] generated this result transmitted ref erence range: 4.00 - 5 .00 M/L. The refe rence range was not u sed to interpret this result as normal/abnor mal. MCHC (test code = 786-4) 30.8 See_Comment L [A utomated message] The system [employer] generated this result transmitted ref erence range: [...] L [Aut omated message] 777-3) The system [employer] generated this result transmitted ref erence range: 150 - 43 0 K/CU MM. The referen ce range was not u sed to interpret this result as normal/abnor mal. MPV (test code = 10.5 fL 6-11.5 80807-3) nRBC (test code = 413) 0 See_Comment [Aut omated message] The system [employer] generated this result transmitted ref erence range: [...] See_Comment [Aut omated message] 670) The system [employer] generated this result transmitted ref erence range: 1.80 - 8 .00 K/L. The refe rence range was not u sed to interpret this result as normal/abnor mal. # Lymphs (test code = 1.66 See_Comment [Auto mated message] 414) The system [employer] generated this result transmitted ref erence range: 1.48 - 4 .50 K/L. The refe rence range was not u sed to interpret this result as normal/abnor mal. # Monos (test code = 0.28 See_Comment [Autom ated message] 415) The system [employer] generated this result transmitted ref erence range: 0.00 - 1 .30 K/L. The refe rence range was not u sed to interpret this result as normal/abnor mal. # Eos (test code = 416) 0.12 See_Comment [Au tomated message] The system [employer] generated this result transmitted ref erence range: 0.00 - 0 .50 K/L. The refe rence range was not u sed to interpret this result as normal/abnor mal. # Baso (test code = 417) 0.07 See_Comment [A utomated message] The system [employer] generated this result transmitted ref erence range: 0.00 - 0 .20 K/L. The refe rence range was not u sed to interpret this result as normal/abnor mal. Immature 0 % 0-0 Granulocytes-Relative (test code = 2801) Lab Interpretation (test Abnormal code = 62028-6) [facility] with platelet count + automated [id number] 06:06:00 Test Item Value Reference Range Interpretation Comments WBC (test code = 6690-2) 5.7 See_Comment [A utomated message] The system [employer] generated this result transmitted ref erence range: 4.0 - 10 .0 K/L. The refe rence range was not u sed to interpret this result as normal/abnor mal. RBC (test code = 789-8) 2.41 See_Comment L [Au tomated message] The system [employer] generated this result transmitted ref erence range: 4.00 - 5 .00 M/L. The refe rence range was not u sed to interpret this result as normal/abnor mal. MCHC (test code = 786-4) 30.8 See_Comment L [A utomated message] The system [employer] generated this result transmitted ref erence range: [...] = 84 See_Comment L [Aut omated message] 587-3) The system [employer] generated this result transmitted ref erence range: 150 - 43 0 K/CU MM. The referen ce range was not u sed to interpret this result as normal/abnor mal. MPV (test code = 10.5 fL 6-11.5 09841-1) nRBC (test code = 413) 0 See_Comment [Aut omated message] The system [employer] generated this result transmitted ref erence range: [...] See_Comment [Aut omated message] 670) The system [employer] generated this result transmitted ref erence range: 1.80 - 8 .00 K/L. The refe rence range was not u sed to interpret this result as normal/abnor mal. # Lymphs (test code = 1.66 See_Comment [Auto mated message] 414) The system [employer] generated this result transmitted ref erence range: 1.48 - 4 .50 K/L. The refe rence range was not u sed to interpret this result as normal/abnor mal. # Monos (test code = 0.28 See_Comment [Autom ated message] 415) The system [employer] generated this result transmitted ref erence range: 0.00 - 1 .30 K/L. The refe rence range was not u sed to interpret this result as normal/abnor mal. # Eos (test code = 416) 0.12 See_Comment [Au tomated message] The system [employer] generated this result transmitted ref erence range: 0.00 - 0 .50 K/L. The refe rence range was not u sed to interpret this result as normal/abnor mal. # Baso (test code = 417) 0.07 See_Comment [A utomated message] The system [employer] generated this result transmitted ref erence range: 0.00 - 0 .20 K/L. The refe rence range was not u sed to interpret this result as normal/abnor mal. Immature 0 % 0-0 Granulocytes-Relative (test code = 2801) Lab Interpretation (test Abnormal code = 97995-9) [facility] W/PLT COUNT & AUTO [id number] 06:06:00 Test Item Value Reference Range Interpretation [...] PERCENT (BEAKER) (test code = 2801) POCT-GLUCOSE [id number] 21:02:00 Test Item Value Reference Range Interpretation Comments POC-GLUCOSE METER 167 mg/dL 70-110 H : TESTED A T [facility] 1317 (BEAKER) (test code [address] [facility] [address], = 1538) [place] [address]: Deputy Felony Clerk/Techni artemio ID = [id number] for Anne Busby POCT-GLUCOSE [id number] 18:12:00 Test Item Value Reference Range Interpretation Comments POC-GLUCOSE METER 121 mg/dL 70-110 H : TESTED A T [facility] 1317 (BEAKER) (test code [facility] [address], = 1538) [place] [address]558: Deputy Felony Clerk/Techni artemio ID = [id number] for Cortney Cohen POCT-GLUCOSE [id number] 11:54:00 Test Item Value Reference Range Interpretation Comments POC-GLUCOSE METER 117 mg/dL 70-110 H : TESTED A T [facility] 1317 (BEAKER) (test code [facility] [address], = 1538) [place] [address]558: Deputy Felony Clerk/Techni artemio ID = [id number] for Cortney Cohen COMPREHENSIVE METABOLIC [id number] 06:47:00 Test Item Value Reference Range Interpretation [...] S NOT APPLICABLE FOR DIALYSIS PATIEN TS. Deputy Felony Clerk ID - OLOPFOexmyuhdq0713-12-22 06:42:00 Test Item Value Reference Range Interpretation Comments Magnesium (test code = 1.6 mg/dL 1.5-3 42755-1) ZIA (test code = ZIA) Deputy Felony Clerk ID - ADMIN Lab Interpretation (test Normal code = 42795-7) [facility] 06:42:00 Test Item Value Reference Range Interpretation Comments Magnesium (test code = 1.6 mg/dL 1.5-3 50453-3) ZIA (test code = ZIA) Deputy Felony Clerk ID - ADMIN Lab Interpretation (test Normal code = 80536-1) [facility] [id number] 06:42:00 Test Item Value Reference Range Interpretation Comments POC-GLUCOSE METER 101 mg/dL 70-110 : TESTED A T [facility] 1317 (BEAKER) (test code [address], = 1538) [facility] [place] [address]: Deputy Felony Clerk/Techni artemio ID = [id number] for Anne Busby [id number] 06:42:00 Test Item Value Reference Range Interpretation Comments MAGNESIUM (BEAKER) (test code = 1.6 mg/dL 1.5-3.0 627) Deputy Felony Clerk ID - ADMINCBC W/PLT COUNT & AUTO [id number] 06:37:00 Test Item Value Reference Range Interpretation [...] PERCENT (BEAKER) (test code = 2801) POCT-GLUCOSE [id number] 20:24:00 Test Item Value Reference Range Interpretation Comments POC-GLUCOSE METER 155 mg/dL 70-110 H : TESTED A T [facility] 1317 (BEAKER) (test code [address], = 1538) [facility] [address]: Deputy Felony Clerk/Techni artemio ID = [id number] for Anne Busby POCT-GLUCOSE [id number] 16:39:00 Test Item Value Reference Range Interpretation Comments POC-GLUCOSE METER 164 mg/dL 70-110 H : Notified RN/MD: TESTED (BEAKER) (test code AT [facility]SL [address] = 1538) [facility], [facility] [address]: Deputy Felony Clerk/Techni artemio ID = [id number] for Alondra Kelley SARS-CoV2/RT-PCR (Asymptomatic ONLY)2019-12-30 15:57:00 Test Item Value Reference Range Interpretation Comments SARS-COV2/RT-PCR Negative Not Detected, (test code = Negative, See 89632-6) external report for linked test SARS-COV-2 [facility] (test code = 05207-0) ZIA (test code = Negative result for [...] of the Act. Fact Sheet for Healthcare Providers:https://www.[employer] Publishing/sites/default/f loco/product/documents/F act_Sheet_HC_Providers_L tch_OBZM-QfH-9.pdf Fact Sheet for Healthcare Patients:https://www.GOOD/sites/default/fi les/product/documents/Fa ct_Sheet_Patients_Lyra_S ARS-CoV-2.pdf Performing Laboratory:[facility] [place] [address] [facility] (Asymptomatic ONLY)2019-12-30 15:57:00 Test Item Value Reference Range Interpretation Comments SARS-COV2/RT-PCR Negative Not Detected, (test code = Negative, See 16373-2) external report for linked test SARS-COV-2 [facility] PERFORMING LAB (test code = 55906-6) ZIA (test code = Negative result for [...] of the Act. Fact Sheet for Healthcare Providers:https://www.[employer]/sites/default/f loco/product/documents/F act_Sheet_HC_Providers_L wfj_HNAV-SrH-7.pdf Fact Sheet for Healthcare Patients:https://www.GOOD/sites/default/fi les/product/documents/Fa ct_Sheet_Patients_Lyra_S ARS-CoV-2.pdf Performing Laboratory:[facility], [place] [address] [place], [place] [address]ARS-COV2/RT-PCR ([facility])2019-12-30 15:57:00 Test Item Value Reference Range Interpretation Comments SARS-COV2/RT-PCR (test Negative Not Detected, Negative, code = 3537922) See external report for linked test SARS-COV-2 PERFORMING LAB [facility] (test code = 5591886) Negative result for this test determines that [...] 564(g) of the Act.Fact Sheet for Healthcare Providers:https://www.Stickybits.DevZuz/sites/default/files/product/documents/Fact_Shee t_VO_Pxkptqysv_Ddhv_AOWE-GsT-5.pdfFact Sheet for Healthcare Patients:https://www.Stickybits.DevZuz/sites/default/files/product/ documents/Wqcr_Ecmur_Boqdypdl_Ferm_JVMX-CrR-6.pdfPerforming Laboratory:[facility] [place], [place] [address]alexys keyBlodgett, [place] [address]ZKFH-YQAYMSZ METER 2019-12-30 11:50:00 Test Item Value Reference Range Interpretation Comments POC-GLUCOSE METER 82 mg/dL 70-110 : Notified RN/MD: TESTED (Incoming MediaAKER) (test code = AT [facility] L [address]) [facility] [address]: Deputy Felony Clerk/Techni artemio ID = [id number] for Alondra Kelley WOUND CULTURE + GRAM [id number] 10:45:00 Test Item Value Reference Interpretation Comments Range CULTURE (Incoming MediaAKER) STENOTROPHOMONAS A 1+ Sten otrophomonas (test code = 1095) MALTOPHILIA maltophil ia Levofloxacin (test S code = 22) Trimethoprim + S Sulfamethoxazole (test code = 47) CULTURE (BEAKER) A 1+ Kary (test code = 1095) parapsilo sis GRAM STAIN RESULT <1+ WBCs (BEAKER) (test code = 1123) GRAM STAIN RESULT <1+ gram negative (BEAKER) (test code rods = 039821) POCT-GLUCOSE [id number] 05:50:00 Test Item Value Reference Range Interpretation Comments POC-GLUCOSE METER 103 mg/dL 70-110 : Notified RN/MD: TESTED (BEAKER) (test code AT [facility] [address] = 1538) [place] [facility] [address]: Deputy Felony Clerk/Techni artemio ID = [id number] for Zonia Healy COMPREHENSIVE METABOLIC [id number] 05:44:00 Test Item Value Reference Range Interpretation [...] S NOT APPLICABLE FOR DIALYSIS PATIEN TS. Deputy Felony Clerk ID - ADMINCBC W/PLT COUNT & AUTO [id number] 05:29:00 Test Item Value Reference Range Interpretation [...] PERCENT (BEAKER) (test code = 2801) POCT-GLUCOSE [id number] 21:21:00 Test Item Value Reference Range Interpretation Comments POC-GLUCOSE METER 185 mg/dL 70-110 H : Notified RN/MD: TESTED (BEAKER) (test code AT [facility] [address] [address] = 1538) [place] [address]: Deputy Felony Clerk/Techni artemio ID = [id number] for Zonia Healy POCT-GLUCOSE [id number] 11:21:00 Test Item Value Reference Range Interpretation Comments POC-GLUCOSE METER 143 mg/dL 70-110 H : Notified RN/MD: TESTED (BEAKER) (test code AT [facility] [address] [address] = 1538) [place] [address]: Deputy Felony Clerk/Techni artemio ID = [id number] for Alondra Kelley COMPREHENSIVE METABOLIC [id number] 06:27:00 Test Item Value Reference Range Interpretation [...] S NOT APPLICABLE FOR DIALYSIS PATIEN TS. Deputy Felony Clerk ID - ADMINPOCT-GLUCOSE [id number] 06:21:00 Test Item Value Reference Range Interpretation Comments POC-GLUCOSE METER 73 mg/dL 70-110 : Notified RN/MD: TESTED (BEAKER) (test code = AT [facility] L [address]) [facility] [address]: Deputy Felony Clerk/Techni artemio ID = [id number] for Zonia Healy CBC W/PLT COUNT & AUTO [id number] 06:00:00 Test Item Value Reference Range Interpretation [...] PERCENT (BEAKER) (test code = 2801) POCT-GLUCOSE [id number] 20:48:00 Test Item Value Reference Range Interpretation Comments POC-GLUCOSE METER 84 mg/dL 70-110 : Notified RN/MD: TESTED ([facility]) (test code = AT SLS L [address] [place] [address]) [place] [address]: Deputy Felony Clerk/Techni artemio ID = [id number] for Zonia Healy POCT-GLUCOSE [id number] 17:51:00 Test Item Value Reference Range Interpretation Comments POC-GLUCOSE METER 59 mg/dL 70-110 L : TESTED A T [facility] 1317 [facility] (test code = [address] [facility], 153) [place] [address]: Deputy Felony Clerk/Techni artemio ID = [id number] for Berta Servin POCT-GLUCOSE [id number] 13:28:00 Test Item Value Reference Range Interpretation Comments POC-GLUCOSE METER 67 mg/dL 70-110 L : TESTED A T [facility] 1317 ([facility] (test code = [address] 1538) [facility] [address]: Deputy Felony Clerk/Techni artemio ID = [id number] for Berta Servin POCT-GLUCOSE [id number] 06:04:00 Test Item Value Reference Range Interpretation Comments POC-GLUCOSE METER 94 mg/dL 70-110 : TESTED A T [facility] 1317 (BEAKER) (test code = [address] 15[address]) [place] [address]: Deputy Felony Clerk/Techni artemio ID = [id number] for Anahi Sherman COMPREHENSIVE METABOLIC [id number] 05:35:00 Test Item Value Reference Range Interpretation [...] S NOT APPLICABLE FOR DIALYSIS PATIEN TS. Deputy Felony Clerk ID - ADMINCBC W/PLT COUNT & AUTO [id number] 04:56:00 Test Item Value Reference Range Interpretation [...] PERCENT (BEAKER) (test code = 2801) POCT-GLUCOSE [id number] 20:43:00 Test Item Value Reference Range Interpretation Comments POC-GLUCOSE METER 137 mg/dL 70-110 H : TESTED A T [facility] 1317 (BEAKER) (test code [address] [facility] [address], = 1538) [facility] [address]: Deputy Felony Clerk/Techni artemio ID = [id number] for Anahi Sherman MR, EXTREMITY, LOWER, WITHOUT CONTRAST, [id number] 16:55:00MRI LEFT FOOT.Unlisted Reason for Exam - [...] MDReport Verified Date/Time: 12/27/2019 16:55:07 Reading Location: [facility] Radiology Reading Room MR lower extremity without IV contrast left [id number] 16:55:00Interface, External Ris In - 12/27/2019 4:57 [...] Ring Verified Date/Time: 12/27/2019 16:55:07 Reading Location: [facility] Radiology Reading Room Electronically signed by: Adrienne CHU 12/27/2019 04:55 [facility] [id number] 16:55:00Interface, External Ris In - 12/27/2019 4:57 [...] Ring Verified Date/Time: 12/27/2019 16:55:07 Reading Location: [facility] Radiology Reading Room Electronically signed by: Adrienne CHU 12/27/2019 04:55 [facility] [id number] 14:19:00 Test Item Value Reference Range Interpretation Comments POC-GLUCOSE METER 232 mg/dL 70-110 H : TESTED A T [facility] 1317 (BEAKER) (test code [address], = 1538) [facility] [address]: Deputy Felony Clerk/Techni artemio ID = [id number] for Christina r, Berta CT, CTA AAA, W/ GÓMEZ.EXT.[id number] 11:38:00Bilateral lower extremities Addendum BeginsREPORT STATUS:A I agree with the nonvascular findings with exceptions and emphasis as below:*Moderate right and small left pleural effusions are partially visualized.*Large volume ascites.*Diffuse anasarca*The reflux of contrast into the hepatic veins is concerning for volume overload. Signed: Molly Linares MDReport Verified Date/Time: 12/27/2019 11:38:28 Reading Location: [facility] Diagnostic Imaging Reading Room - [place] [address] [address] angiography of the abdominal aorta and runoff, 26-Dec-19 INDICATION: This is a 64 year old female with with lower leg penetrating trauma presents for assessment. TECHNIQUE: Spiral acquisition before and during intravenous contrast administration using a Carsquare multidetector CT scanner. Images were obtained before [...] identified. However, significant calcification identified of the [place] left SFA, for example at image 516, [...] the right popliteal artery is patent, with uozy-ag-tfxsdpmj diffuse calcification identified with no obstructive lesion [...] However, in the distal left SFA, the [place] artery substantial calcification identified and the stent [...] atherosclerosis identified. 4. In the right, the [place] right SFA is not filled by contrast [...] dictated regarding the non-vascular findings by the Accounting Manager Cpa Radiologist. Signed: Shlomo Dockery MDReport Verified Date/Time: 12/27/2019 07:59:51 Reading Location: [place] [address] CT Reading Room Protein electrophoresis, serum 2019-12-27 [...] as normal/abnormal . ZIA (test code = Deputy Felony Clerk ID - ZIA) LEONIE F Lab Interpretation Abnormal (test code = 75062-8) [facility], [id number] 09:29:00 Test Item Value Reference Range Interpretation [...] as normal/abnormal . ZIA (test code = Deputy Felony Clerk ID - ZIA) CAROLINA F Lab Interpretation Abnormal (test code = 42519-2) [facility]OTE[facility] ELECTROPHORESIS, [id number] 09:29:00 Test Item Value Reference Range Interpretation [...] chronic inflammatory response. No monoclonal bands detected. [id number] Rocio Galindo MD (BEAKER) (test code = (electronic signature) 2616) PROTEIN TOTAL SERUM, 6.3 gm/dL 6.0-8.3 SPEP (BEAKER) (test code = 2600) Deputy Felony Clerk ID - CAROLINA FCTA AAA and [id number] 07:59:00Interface, External Ris In - 12/27/2019 11:40 AM CDTAddendum BeginsREPORT STATUS:A I agree with the nonvascular findings with exceptions and emphasis as below:*Moderate right andsmall left pleural effusions are partially visualized.*Large volume ascites.*Diffuse anasarca*The reflux of contrast into the hepatic veins is concerning for volume overload. Signed: Molly Linares MDReport Verified Date/Time: 12/27/2019 11:38:28 Reading Location: [facility] Diagnostic Imaging Reading Room - [address]end[address] EndsFINAL REPORT CT angiography of the abdominal aorta and runoff, 26-Dec-19 INDICATION: This is a 64 year old female with with lower leg penetrating trauma presents for assessment. TECHNIQUE: Spiral acquisition before and during intravenous contrast administration using a Cars[employer] multidetector CT scanner. Images were obtained before [...] identified. However, significant calcification identified of the [place] left SFA, for example at image 516, [...] the right popliteal artery is patent, with ckzl-ib-biefxdrz diffuse calcification identified with no obstructive lesion [...] However, in the distal left SFA, the [place] artery substantial calcification identified and the stent [...] atherosclerosis identified. 4. In the right, the [place] right SFA is not filled by contrast [...] dictated regarding the non-vascular findings by the Accounting Manager Cpa Radiologist. Signed: Shlomo Dockery Verified Date/Time: 12/27/2019 07:59:51 Reading Location: [place] [id number] CT Reading [facility]CT[facility] AAA and [id number] 07:59:00Interface, External Ris In - 12/27/2019 11:40 AM CDTAddendum BeginsREPORT STATUS:A I agree with the nonvascular findings with exceptions and emphasis as below:*Moderate right andsmall left pleural effusions are partially visualized.*Large volume ascites.*Diffuse anasarca*The reflux of contrast into the hepatic veins is concerning for volume overload. Signed: Molly Linares MDReport Verified Date/Time: 12/27/2019 11:38:28 Reading Location: [facility] Diagnostic Imaging Reading Room - [place] [address] [address] angiography of the abdominal aorta and runoff, 26-Dec-19 INDICATION: This is a 64 year old female with with lower leg penetrating trauma presents for assessment. TECHNIQUE: Spiral acquisition before and during intravenous contrast administration using a [employer] multidetector CT scanner. Images were obtained before [...] identified. However, significant calcification identified of the [place] left SFA, for example at image 516, [...] the right popliteal artery is patent, with xkwu-xd-mlzbwjbb diffuse calcification identified with no obstructive lesion [...] However, in the distal left SFA, the [place] artery substantial calcification identified and the stent [...] atherosclerosis identified. 4. In the right, the [place] right SFA is not filled by contrast [...] dictated regarding the non-vascular findings by the Accounting Manager Cpa Radiologist. Signed: Shlomo Dockery MDReport Verified Date/Time: 12/27/2019 07:59:51 Reading Location: [place] [address] [address] Reading [facility] [id number] 06:56:00 Test Item Value Reference Range Interpretation Comments POC-GLUCOSE METER 39 mg/dL 70-110 LL : Notified RN/: TESTED (BEAKER) (test code = AT [facility] L [address]) [facility] [address]: Deputy Felony Clerk/Techni artemio ID = [id number] for Anahi Sherman COMPREHENSIVE METABOLIC [id number] 06:15:00 Test Item Value Reference Range Interpretation [...] S NOT APPLICABLE FOR DIALYSIS PATIEN TS. Deputy Felony Clerk ID - ADMINPOCT-GLUCOSE [id number] 06:01:00 Test Item Value Reference Range Interpretation Comments POC-GLUCOSE METER 55 mg/dL 70-110 L : Notified RN/MD: TESTED (BEAKER) (test code = AT SLS L [address]) [facility] [address]: Deputy Felony Clerk/Techni artemio ID = [id number] for Anahi Sherman CBC W/PLT COUNT & AUTO [id number] 05:44:00 Test Item Value Reference Range Interpretation [...] PERCENT (BEAKER) (test code = 2801) POCT-GLUCOSE [id number] 21:03:00 Test Item Value Reference Range Interpretation Comments POC-GLUCOSE METER 278 mg/dL 70-110 H : Notified RN/MD: TESTED ([facility]) (test code AT [facility] [address] 1538) [place] [facility] [address]: Deputy Felony Clerk/Techni artemio ID = [id number] for Anahi Sherman POCT-GLUCOSE [id number] 16:53:00 Test Item Value Reference Range Interpretation Comments POC-GLUCOSE METER 70 mg/dL 70-110 : TESTED A T [facility] 13[address] ([facility]) (test code = [address]) [place] [address]: Deputy Felony Clerk/Techni artemio ID = [id number] for Nalini Jean Baptiste POCT-GLUCOSE [id number] 12:11:00 Test Item Value Reference Range Interpretation Comments POC-GLUCOSE METER 97 mg/dL 70-110 : TESTED A T [facility] [address] (BEAKER) (test code = [address], [address]) [place] [address]: Deputy Felony Clerk/Techni artemio ID = [id number] for Nalini Jean Baptiste POCT-GLUCOSE [id number] 06:21:00 Test Item Value Reference Range Interpretation Comments POC-GLUCOSE METER 71 mg/dL 70-110 : TESTED A T [facility] [address] (BEAKER) (test code = [address], [address]) [place] [address]: Deputy Felony Clerk/Techni artemio ID = [id number] for Sukhdeep Alamohael COMPREHENSIVE METABOLIC [id number] 05:50:00 Test Item Value Reference Range Interpretation [...] S NOT APPLICABLE FOR DIALYSIS PATIEN TS. Deputy Felony Clerk ID - ADMINCBC W/PLT COUNT & AUTO [id number] 05:17:00 Test Item Value Reference Range Interpretation [...] (BEAKER) (test code = 2801) Prepare Leuko-Red [id number] 23:54:00 Test Item Value Reference Range Interpretation Comments CROSSMATCH (test code = 2264) COMPATIBLE Unit ABO (test code = O Pos 4271334) UNIT NUMBER (test code = [id number] 934-0) Status (test code = 1181139) [facility] Product (test code RED BLOOD CELLS = 2263) PRODUCT CODE (test code = T7472F72 933-2) [facility]uko[facility]Red [id number] 23:54:00 Test Item Value Reference Range Interpretation Comments CROSSMATCH (test code = 2264) COMPATIBLE Unit ABO (test code = O Pos 0907248) UNIT NUMBER (test code = [id number] 934-0) Status (test code = 7085521) [facility] Blood [facility] Product (test code RED BLOOD CELLS = 2263) PRODUCT CODE (test code = T3991V57 933-2) [facility] [id number] 21:03:00 Test Item Value Reference Range Interpretation Comments POC-GLUCOSE METER 87 mg/dL 70-110 : TESTED A T [facility] [address] (BEAKER) (test code = [address], [address]) [facility] [place] [address]: Deputy Felony Clerk/Techni artemio ID = [id number] for Nwad iufu, Holly POCT-GLUCOSE [id number] 17:12:00 Test Item Value Reference Range Interpretation Comments POC-GLUCOSE METER 79 mg/dL 70-110 : TESTED A T [facility] [address] (BEAKER) (test code = [address], 15[address]) [place] [address]: Deputy Felony Clerk/Techni artemio ID = [id number] for Nalini Jean Baptiste POCT-GLUCOSE [id number] 11:37:00 Test Item Value Reference Range Interpretation Comments POC-GLUCOSE METER 262 mg/dL 70-110 H : TESTED A T [facility] [address] (BEAKER) (test code [address], = 1538) [place] [address]: Deputy Felony Clerk/Techni artemio ID = [id number] for Nalini Jean Baptiste COMPREHENSIVE METABOLIC [id number] 06:29:00 Test Item Value Reference Range Interpretation [...] 347) EGFR (BEAKER) (test 18 mL/min/1.73 ESTIMA MENRA GFR IS code = 1092) sq m NOT ACCURATE CREATININE CLEARANCE IN PREDICTING GLOMERULAR FILTRATION RATE . ESTIMATED GFR I S NOT APPLICABLE FOR DIALYSIS PATIEN TS. Deputy Felony Clerk ID - ADMINCBC W/PLT COUNT & AUTO [id number] 06:12:00 Test Item Value Reference Range Interpretation [...] code = 416) BASOPHILS ABSOLUTE COUNT (AKER) 0.03 K/ L 0.00-0.20 (test code = 417) IMMATURE GRANULOCYTES-RELATIVE 0 % 0-0 PERCENT (BEAKER) (test code = 2801) POCT-GLUCOSE [id number] 06:09:00 Test Item Value Reference Range Interpretation Comments POC-GLUCOSE METER 83 mg/dL 70-110 : Notified RN/MD: TESTED (BEAKER) (test code = AT [address]LS [address]) [place] [address]: Deputy Felony Clerk/Techni artemio ID = [id number] for Anahi Sherman POCT-GLUCOSE [id number] 16:26:00 Test Item Value Reference Range Interpretation Comments POC-GLUCOSE METER 182 mg/dL 70-110 H : Notified RN/MD: TESTED (BEAKER) (test code AT [facility] [address] = [address]) [place] [address]: Deputy Felony Clerk/Techni artemio ID = [id number] for Alondra Kelley, [id number] 09:17:00 Test Item Value Reference Range Interpretation Comments Rh Factor (test code = POS 2589) ABO Grouping (test code O PINK TOP 12/24/19 @ 0824 = 2588) [facility], [id number] 09:17:00 Test Item Value Reference Range Interpretation Comments Rh Factor (test code = POS 2589) ABO Grouping (test code O PINK TOP 12/24/19 @ 0824 = 2588) [facility] HospitalType and screen, [id number] 07:31:00 Test Item Value Reference Range Interpretation Comments ABO/RH AUTOMATED (BEAKER) (test O POSITIVE ECHO code = 2260) Ab Scrn (test code = 890-4) NEGATIVE ECHO [facility] screen, [id number] 07:31:00 Test Item Value Reference Range Interpretation Comments ABO/RH AUTOMATED (BEAKER) (test O POSITIVE ECHO code = 2260) Ab Scrn (test code = 890-4) NEGATIVE ECHO [facility]COMPRE[facility]ENS[facility] MET[facility] [id number] 06:42:00 Test Item Value Reference Range Interpretation [...] S NOT APPLICABLE FOR DIALYSIS PATIEN TS. Deputy Felony Clerk ID - ADMINPOCT-GLUCOSE [id number] 06:23:00 Test Item Value Reference Range Interpretation Comments POC-GLUCOSE METER 88 mg/dL 70-110 : TESTED A T [facility] [address] (BEAKER) (test code = [address], 1538) [facility] [place] [address]: Deputy Felony Clerk/Techni artemio ID = [id number] for Anne Busby CBC W/PLT COUNT & AUTO [id number] 06:23:00 Test Item Value Reference Range Interpretation [...] 0-0 H PERCENT (BEAKER) (test code = 2808) POCT-GLUCOSE [id number] 21:38:00 Test Item Value Reference Range Interpretation Comments POC-GLUCOSE METER 126 mg/dL 70-110 H : TESTED A T [facility] [address] (BEAKER) (test code [address], = 1538) [facility] [address]: Deputy Felony Clerk/Techni artemio ID = [id number] for Anne Busby POCT-GLUCOSE [id number] 16:54:00 Test Item Value Reference Range Interpretation Comments POC-GLUCOSE METER 89 mg/dL 70-110 : Notified RN/MD: TESTED (BEAKER) (test code = AT [address]LS [address]) [address], [facility] [address]: Deputy Felony Clerk/Techni artemio ID = [id number] for Alondra Kelley MR, EXTREMITY, LOWER, JOINT, WITHOUT CONTRAST, [id number] 16:10:00Unlisted Reason for Exam - Click Yes [...] Jordanort Verified Date/Time: 12/23/2019 16:10:32 Reading Location: [facility] B1 C013X Ortho Consult Reading Room MR lower extremity joint only without IV contrast left [id number] 16:10:00Interface, External Ris In - 12/23/2019 4:12 [...] MDReport Verified Date/Time: 12/23/2019 16:10:32 Reading Location: [facility] B1 C013X Ortho Consult Reading [facility]MR [facility] joint only without IV contrast [...] Jordan Verified Date/Time: 12/23/2019 16:10:32 Reading Location: [facility] C013X Ortho Consult Reading Room [facility]MR, BRAIN, WITHOUT [id number] 15:43:00Unlisted Reason for Exam - Click Yes [...] Date/Time: 12/23/2019 15:43:24 MR brain without IV [id number] 15:43:00Interface, External Ris In - 12/23/2019 3:45 [...] Signed: Berta Muniz Verified Date/Time: 12/23/2019 15:43:24 [facility]MR [facility] without IV [id number] 15:43:00Interface, External Ris In - 12/23/2019 3:45 [...] Unremarkable. IMPRESSION:No acute intracranial abnormality. Signed: Berta Munizort Verified Date/Time: 12/23/2019 15:43:24 [facility]) 2019-12-23 14:16:00 Test Item Value Reference Range Interpretation Comments SARS-COV2/RT-PCR (test Negative Not Detected, Negative, code = 6948342) See external report for linked test SARS-COV-2 PERFORMING LAB [facility] JANET (test code = 8795239) Negative result for this test determines that [...] 564(g) of the Act.Fact Sheet for Healthcare Providers:https://www.Fly Taxiidel.com/sites/default/files/product/documents/Fact_Shee y_BW_Ngvnlfxnd_Kfkh_YQHV-FgK-9.pdfFact Sheet for Healthcare Patients:https://www.Stickybits.com/sites/default/files/product/ documents/Htri_Unqgy_Ebtzclfa_Ytro_SSCS-XbB-3.pdfPerforming Laboratory:[facility], [place] [address]Ojhbg / lambda light chains, [id number] 12:25:00 Test Item Value Reference Interpretation Comments Range Empire Lt Chain,Free 474.4 mg/L 3.3-19.4 H (test code = 38280-0) Lambda Lt 225.6 mg/L 5.7-26.3 H Chain,Free (test code = 96089-9) Empire/Lambda,Free 2.1 0.26-1.65 H Free annabelle a/lambda (test [...] undeterminedsig nificanc e, and lymphoprolifera tive disorders. Jeúss urement of free lightch ain concentration i n serum is useful for diagnosis, prog nosis, monitoringdisea se activity and fo llowing response to the rapy of these disorders . ZIA (test code = Performing Lab IZA) EZ [facility] [address] [place] [address] Jaguar Stein MD, PhD, CORI Lab Interpretation Abnormal (test code = 46045-9) [facility] / lambda light chains, [id number] 12:25:00 Test Item Value Reference Interpretation Comments Range Empire Lt Chain,Free 474.4 mg/L 3.3-19.4 H (test code = 95925-5) Lambda Lt 225.6 mg/L 5.7-26.3 H Chain,Free (test code = 53313-2) Empire/Lambda,Free 2.1 0.26-1.65 H Free annabelle a/lambda (test [...] = Performing Lab ZIA) EZ [facility] [address] [place] [address] Jaguar Stein MD, PhD, CORI Lab Interpretation Abnormal (test code = 84038-7) [facility]PO[facility] [id number] 11:27:00 Test Item Value Reference Range Interpretation Comments POC-GLUCOSE METER 189 mg/dL 70-110 H : Notified RN/MD: TESTED (BEAKER) (test code AT [facility] [address] = 1538) [facility] [address]: Deputy Felony Clerk/Techni artemio ID = [id number] for Ingrid Kelleyberly ARTERIAL DOPPLER LEGS, [id number] 11:22:00Reason for exam:->non healing ulcer , non [...] severe peripheral arterial disease. Signed:Luis Alberto Monahan MDRtieraort Verified Date/Time: 12/23/2019 11:22:31 Reading Location: [facility] Radiology Reading Room Arterial Doppler Legs [id number] 11:22:00 Interface, External Ris In - 12/23/2019 [...] MDReport Verified Date/Time: 12/23/2019 11:22:31 Reading Location: [facility] Radiology Reading Room [facility] Center[facility]ter[facility] Doppler Legs [id number] 11:22:00Interface, External Ris In - 12/23/2019 11:24 [...] MDReport Verified Date/Time: 12/23/2019 11:22:31 Reading Location: [facility] Radiology Reading Room [facility] CenterCOMPREHENSIVE METABOLIC PANEL 2019-12-23 04:44:00 Test Item Value [...] S NOT APPLICABLE FOR DIALYSIS PATIEN TS. Deputy Felony Clerk ID - ADMINCBC W/PLT COUNT & AUTO [id number] 04:35:00 Test Item Value Reference Range Interpretation [...] H PERCENT (BEAKER) (test code = 2801) [id number] 04:29:00 Test Item Value Reference Range Interpretation Comments Ammonia (test code = 36 See_Comment [Autom ated 75477-6) message] The system which generated this result transmit merna reference range : 17 - 80 mol/L . The reference range was not u sed to interpret th is result as normal/abnormal . ZIA (test code = ZIA) Deputy Felony Clerk ID - ADMIN Lab Interpretation Normal (test code = 45598-5) [facility] HospitalAmmonia2020-09-24 04:29:00 Test Item Value Reference Range Interpretation Comments Ammonia (test code = 36 See_Comment [Autom ated 69721-5) message] The system which generated this result transmit merna reference range : 17 - 80 mol/L . The reference range was not u sed to interpret th is result as normal/abnormal . ZIA (test code = ZIA) Deputy Felony Clerk ID - ADMIN Lab Interpretation Normal (test code = 15822-5) [facility] HospitalAMMONIA2020-09-24 04:29:00 Test Item Value Reference Range Interpretation Comments AMMONIA (BEAKER) (test code = 348) 36 mol/L 17-80 Deputy Felony Clerk ID - ADMINPOCT-GLUCOSE [id number] 20:45:00 Test Item Value Reference Range Interpretation Comments POC-GLUCOSE METER 95 mg/dL 70-110 : TESTED A T [facility] [address] (BEAKER) (test code = [address], 1538) [place] [address]: Deputy Felony Clerk/Techni artemio ID = [id number] for Anne Busby POCT-GLUCOSE [id number] 17:08:00 Test Item Value Reference Range Interpretation Comments POC-GLUCOSE METER 107 mg/dL 70-110 : TESTED A T [facility] [address] (BEAKER) (test code [address], = 1538) [place] [address]: Deputy Felony Clerk/Techni artemio ID = [id number] for Jordyn Fonseca POCT-GLUCOSE [id number] 11:55:00 Test Item Value Reference Range Interpretation Comments POC-GLUCOSE METER 135 mg/dL 70-110 H : TESTED A T [facility] [address] (BEAKER) (test code [address], = 1538) [facility] [address]: Deputy Felony Clerk/Techni artemio ID = [id number] for Jordyn Fonseca Anti-Nuclear Antibody (ROGER)2019-12-22 11:40:00 Test Item Value Reference Range Interpretation Comments ROGER (test code = 22771-3) Positive Negative A ZIA (test code = ZIA) Test performed by IFA method. Lab Interpretation (test Abnormal code = 84227-6) [facility] HospitalANA Titer & [id number] 11:40:00 Test Item Value Reference Range Interpretation Comments ROGER Titer (test code = 16622-1) 1:40 ROGER Pattern (test code = 1781) Speckled [facility] HospitalAnti-Nuclear Antibody (ROGER)2019-12-22 11:40:00 Test Item Value Reference Range Interpretation Comments ROGER (test code = 92144-3) Positive Negative A ZIA (test code = ZIA) Test performed by IFA method. Lab Interpretation (test Abnormal code = 92518-7) [facility]ANA Titer & [id number] 11:40:00 Test Item Value Reference Range Interpretation Comments ROGER Titer (test code = 26106-5) 1:40 ROGER Pattern (test code = 1781) Speckled [facility] HospitalANTI-NUCLEAR ANTIBODY (ROGER)2019-12-22 11:40:00 Test Item Value Reference Range Interpretation Comments ANTI-NUCLEAR ANTIBODY (ROGER) (BEAKER) Positive Negative A (test code = 418) Test performed by IFA method.ROGER TITER AND [id number] 11:40:00 Test Item Value Reference Range Interpretation Comments ROGER TITER (BEAKER) (test code = :40 1541) ROGER PATTERN (BEAKER) (test code = Speckled 1781) POCT-GLUCOSE [id number] 06:44:00 Test Item Value Reference Range Interpretation Comments POC-GLUCOSE METER 92 mg/dL 70-110 : TESTED A T [facility] [address] (BEAKER) (test code = [address], 1538) [facility] [address]: Deputy Felony Clerk/Techni artemio ID = [id number] for Anne Busby COMPREHENSIVE METABOLIC [id number] 06:35:00 Test Item Value Reference Range Interpretation [...] S NOT APPLICABLE FOR DIALYSIS PATIEN TS. Deputy Felony Clerk ID - ADMINCBC W/PLT COUNT & AUTO [id number] 06:16:00 Test Item Value Reference Range Interpretation [...] PERCENT (BEAKER) (test code = 2801) POCT-GLUCOSE [id number] 20:38:00 Test Item Value Reference Range Interpretation Comments POC-GLUCOSE METER 85 mg/dL 70-110 : TESTED A T [facility] [address] (BEAKER) (test code = [address], 1538) [place] [address]: Deputy Felony Clerk/Techni artemio ID = [id number] for Anne Busby POCT-GLUCOSE [id number] 18:14:00 Test Item Value Reference Range Interpretation Comments POC-GLUCOSE METER 112 mg/dL 70-110 H : TESTED A T [facility] [address] (BEAKER) (test code [address], = 1538) [place] [address]: Deputy Felony Clerk/Techni artemio ID = [id number] for Christina r, Berta POCT-GLUCOSE [id number] 13:00:00 Test Item Value Reference Range Interpretation Comments POC-GLUCOSE METER 77 mg/dL 70-110 : TESTED A T [facility] [address] (BEAKER) (test code = [address], 1538) [place] [address]: Deputy Felony Clerk/Techni artemio ID = [id number] for Christina r, Berta POCT-GLUCOSE [id number] 07:32:00 Test Item Value Reference Range Interpretation Comments POC-GLUCOSE METER 60 mg/dL 70-110 L : TESTED A T [facility] [address] (BEAKER) (test code = [address], 1538) [place] [address]: Deputy Felony Clerk/Techni artemio ID = [id number] for Marissa Pgae COMPREHENSIVE METABOLIC [id number] 06:11:00 Test Item Value Reference Range Interpretation [...] S NOT APPLICABLE FOR DIALYSIS PATIEN TS. Deputy Felony Clerk ID - ADMINC-Reactive [id number] 06:06:00 Test Item Value Reference Range Interpretation Comments CRP (test code = 676) 1.63 mg/dL 0-0.5 H ZIA (test code = ZIA) Deputy Felony Clerk ID - ADMIN Lab Interpretation (test Abnormal code = 48522-9) [facility]-Reactive [id number] 06:06:00 Test Item Value Reference Range Interpretation Comments CRP (test code = 676) 1.63 mg/dL 0-0.5 H ZIA (test code = ZIA) Deputy Felony Clerk ID - ADMIN Lab Interpretation (test Abnormal code = 93081-8) [facility]-REACTIVE [id number] 06:06:00 Test Item Value Reference Range Interpretation Comments C-REACTIVE PROTEIN (BEAKER) (test 1.63 mg/dL 0.00-0.50 H code = 676) Deputy Felony Clerk ID - ADMINPOCT-GLUCOSE [id number] 06:04:00 Test Item Value Reference Range Interpretation Comments POC-GLUCOSE METER 56 mg/dL 70-110 L : Notified RN/MD: TESTED (BEAKER) (test code = AT [address]LS [address]) [facility] [address] Deputy Felony Clerk/Techni artemio ID = [id number] for Nelda Abdi CBC W/PLT COUNT & AUTO [id number] 05:53:00 Test Item Value Reference Range Interpretation [...] (BEAKER) (test code = 2801) U/S, ABDOMINAL, [id number] 22:02:00Reason for exam:->thrombocytopenia / eval for hepatosplenomegalyFINAL [...] MDReport Verified Date/Time: 12/20/2019 22:02:21 US abdomen [id number] 22:02:00Interface, External Ris In - 12/20/2019 10:04 [...] Hever Marin MDReport Verified Date/Time: 12/20/2019 22:02:21 [facility] [id number] 22:02:00Interface, External Ris In - 12/20/2019 10:04 [...] Signed: Hever Marin MDReport Verified Date/Time:12/20/2019 22:02:21 [facility] CenterPOCT[facility]GLUCOSE [id number] 20:36:00 Test Item Value Reference Range Interpretation Comments POC-GLUCOSE METER 74 mg/dL 70-110 : Notified RN/MD: TESTED (BEAKER) (test code = AT [address]LS [address]) [facility] [address]: Deputy Felony Clerk/Techni artemio ID = [id number] for Nelda Abdi POCT-GLUCOSE [id number] 17:50:00 Test Item Value Reference Range Interpretation Comments POC-GLUCOSE METER 72 mg/dL 70-110 : TESTED A T [facility] [address] (BEAKER) (test code = [address] [facility], 1538) [facility] 77 [address]: Deputy Felony Clerk/Techni artemio ID = [id number] for Berta Servin CT, BRAIN, WITHOUT [id number] 16:08:00Unlisted Reason for Exam - Click Yes [...] Date/Time: 12/20/2019 16:08:40 CT brain without IV [id number] 16:08:00Interface, External Ris In - 12/20/2019 4:10 [...] Signed: Berta Muniz Verified Date/Time: 12/20/2019 16:08:40 [facility] CenterCT [facility] without IV [id number] 16:08:00 Interface, External Ris In 12/20/2019 4:[address], BRAIN, [...] is recommended for further characterization. Signed: Berta Munizort Verified Date/Time: 12/20/2019 16:08:40 [facility] CenterRAD, FOOT, 2 VIEWS, LEFT 2019-12-20 15:15:00Reason for [...] MDRtieraort Verified Date/Time: 12/20/2019 15:15:25 Reading Location: [facility] Radiology Reading Room , FOOT, 2 VIEWS, [id number] 15:15:00Reason for exam:->Rule out osteomyelitisShould this be [...] MDReport Verified Date/Time: 12/20/2019 15:15:25 Reading Location: [facility] Radiology Reading Room XR foot 2 views [id number] 15:15:00Interface, External Ris In - 12/20/2019 3:17 [...] MDReport Verified Date/Time: 12/20/2019 15:15:25 Reading Location: [facility] Radiology Reading Room [facility] CenterXR foot 2 views [id number] 15:15:00Interface, External Ris In - 12/20/2019 3:17 [...] MDReport Verified Date/Time: 12/20/2019 15:15:25 Reading Location: [facility] Radiology Reading Room [facility] CenterXR foot 2 views [id number] 15:15:00Interface, External Ris In - 12/20/2019 3:17 [...] Monahaneport Verified Date/Time: 12/20/2019 15:15:25 Reading Location: [facility] Radiology Reading Room [facility] CenterXR foot 2 views [id number] 15:15:00Interface, External Ris In - 12/20/2019 3:17 [...] Monahan Verified Date/Time: 12/20/2019 15:15:25 Reading Location: [facility] Radiology Reading Room [facility] [id number] 14:56:00 Test Item Value Reference Range Interpretation Comments AMMONIA (BEAKER) (test code = 348) 33 mol/L 17-80 Deputy Felony Clerk ID - ADMINBlood gas, [id number] 14:41:00 Test Item Value Reference Range Interpretation Comments pH, Arterial (test code 7.33 7.35-7.45 L = 2744-1) pCO2, Arterial (test 58 See_Comment H [Autom ated message] code = 2019-8) The system [facility] generated this result transmit merna reference range : 35 - 45 mmHg. The reference range was not used to interpret this result as normal/abnormal . pO2, Arterial (test 109 See_Comment H [Automa merna message] code = 2703-7) The system [facility] generated this result transmit merna [...] % Lab Interpretation Abnormal (test code = 60435-7) [facility] [id number] 14:41:00 Test Item Value Reference Range Interpretation Comments pH, Arterial (test code 7.33 7.35-7.45 L = 2744-1) pCO2, Arterial (test 58 See_Comment H [Autom ated message] code = 2019-8) The system [facility] generated this result transmit merna reference range : 35 - 45 mmHg. The reference range was not used to interpret this result as normal/abnormal . pO2, Arterial (test 109 See_Comment H [Automa merna message] code = 2703-7) The system [facility] generated this result transmit merna [...] % Lab Interpretation Abnormal (test code = 91430-0) [facility]BL[facility]AS, [id number] 14:41:00 Test Item Value Reference Range Interpretation [...] code = 1819) 32.0 % Occult blood, [id number] 11:56:00 Test Item Value Reference Range Interpretation Comments Occult blood (test code = 2335-8) Negative Negative Lab Interpretation (test code = Normal 36952-6) [facility]Occ[facility], [id number] 11:56:00 Test Item Value Reference Range Interpretation Comments Occult blood (test code = 2335-8) Negative Negative Lab Interpretation (test code = Normal 87047-2) [facility]OCC[facility] BLOOD, [id number] 11:56:00 Test Item Value Reference Range Interpretation Comments FECAL OCCULT BLOOD (BEAKER) (test Negative Negative code = 618) POCT-GLUCOSE [id number] 11:39:00 Test Item Value Reference Range Interpretation Comments POC-GLUCOSE METER 88 mg/dL 70-110 : TESTED A T [address] (BEAKER) (test code = [address], [address]) [facility] [address]: Deputy Felony Clerk/Techni artemio ID = [id number] for Kai Phelpsda [id number] 11:22:00 Test Item Value Reference Range Interpretation Comments Haptoglobin (test code = <8 14-258 L 4542-7) ZIA (test code = ZIA) Deputy Felony Clerk ID - LEONIE Jay Lab Interpretation (test Abnormal code = 18271-0) [facility]aptoglobin[facility] 11:22:00 Test Item Value Reference Range Interpretation Comments Haptoglobin (test code = <8 14-258 L 4542-7) ZIA (test code = ZIA) Deputy Felony Clerk ID - CAROLINA F Lab Interpretation (test Abnormal code = 83223-7) [facility]HAPTOGLOBIN2020-09-21 11:22:00 Test Item Value Reference Range Interpretation Comments HAPTOGLOBIN (BEAKER) (test code = < mg/dL 14-258 L 366) Deputy Felony Clerk ID - CAROLINA FT4, [id number] 11:01:00 Test Item Value Reference Range Interpretation Comments Free T4 (test code = 0.52 ng/dL 0.9-1.8 L 3024-7) ZIA (test code = ZIA) Deputy Felony Clerk ID - ADMIN Lab Interpretation (test Abnormal code = 04357-1) [facility], [id number] 11:01:00 Test Item Value Reference Range Interpretation Comments Free T4 (test code = 0.52 ng/dL 0.9-1.8 L 3024-7) ZIA (test code = ZIA) Deputy Felony Clerk ID - ADMIN Lab Interpretation (test Abnormal code = 05858-2) [facility], [id number] 11:01:00 Test Item Value Reference Range Interpretation Comments FREE T4 (BEAKER) (test code = 655) 0.52 ng/dL 0.90-1.80 L Deputy Felony Clerk ID - ADMINPeripheral Blood Smear - Path [id number] 08:19:00 Test Item Value Reference Range Interpretation [...] Griffith M.D. code = 2849) (electronic signature) [facility]Per[facility] Sm[facility] - Path [id number] 08:19:00 Test Item Value Reference Range Interpretation [...] Griffith M.D. code = 2849) (electronic signature) [facility]PER[facility]HERAL BLO[facility] SMEAR - PATHOLOGIST REVIEW 2019-12-20 08:19:00 Test Item Value Reference Range Interpretation Comments RBC MORPHOLOGY Target Cells (BEAKER) (test code = 2846) RBC MORPHOLOGY Basophilic Stippling (BEAKER) (test code = 58244) RBC MORPHOLOGY Nucleated Red Blood Cells (BEAKER) (test code = 72293) PERIPHERAL SMR Normochromic normocytic REVIEW (BEAKER) anemia with a few target (test code = 2640) cells, nucleated RBCs and basophilic stippling. No increase in schistocytes. WBCs normal in number and morphology. Thrombocytopenia with normal platelet morphology. [id number]-174 Jovita Griffith M.D. 2 (BEAKER) (test (electronic signature) code = 2849) Vitamin B12 and [id number] 06:37:00 Test Item Value Reference Range Interpretation Comments Vitamin B12 (test 1431 pg/mL 211-911 H code = 2132-9) Folate (test code = 17.00 ng/mL See_Comment [Automa merna 2284-8) message] The system which generated this result transmit merna reference range : >=5.4. The reference range was not used to interpret this result as normal/abnormal . ZIA (test code = ZIA) Deputy Felony Clerk ID - ADMIN Lab Interpretation Abnormal (test code = 36160-8) [facility] HospitalVitamin B12 and [id number] 06:37:00 Test Item Value Reference Range Interpretation Comments Vitamin B12 (test 1431 pg/mL 211-911 H code = 2132-9) Folate (test code = 17.00 ng/mL See_Comment [Automa merna 2284-8) message] The system which generated this result transmit merna reference range : >=5.4. The reference range was not used to interpret this result as normal/abnormal . ZIA (test code = ZIA) Deputy Felony Clerk ID - ADMIN Lab Interpretation Abnormal (test code = 43543-8) [facility] HospitalVITAMIN B12 AND [id number] 06:37:00 Test Item Value Reference Range Interpretation Comments VITAMIN B12 (BEAKER) (test code = 1431 pg/mL 211-911 H 774) FOLATE (BEAKER) (test code = 362) 17.00 ng/mL >=5.4 Deputy Felony Clerk ID - ADMINPOCT-GLUCOSE [id number] 06:32:00 Test Item Value Reference Range Interpretation Comments POC-GLUCOSE METER 79 mg/dL 70-110 : TESTED A T [address] (BEAKER) (test code = [address], [address]) [facility] [place] [address]: Deputy Felony Clerk/Techni artemio ID = [id number] for Anahi Sherman [id number] 06:25:00 Test Item Value Reference Range Interpretation Comments Ferritin (test code = 595.00 ng/mL 10-291 H 2276-4) ZIA (test code = ZIA) Deputy Felony Clerk ID - ADMIN Lab Interpretation (test Abnormal code = 13674-1) [facility]/Free T4 If [id number] 06:25:00 Test Item Value Reference Range Interpretation Comments TSH (test code = 21.210 See_Comment H [Automated 19926-2) message] The system which generated this result transmit merna reference range : 0.350 - 5.500 uIU/mL. The reference range was not used to interpret this result as normal/abnormal . ZIA (test code = ZIA) Deputy Felony Clerk ID - ADMIN Lab Interpretation Abnormal (test code = 96121-2) [facility] HospitalFerritin2020-09-21 06:25:00 Test Item Value Reference Range Interpretation Comments Ferritin (test code = 595.00 ng/mL 10-291 H 2276-4) ZIA (test code = ZIA) Deputy Felony Clerk ID - ADMIN Lab Interpretation (test Abnormal code = 81773-4) [facility]/Free T4 If Wiwukocia2436-48-04 06:25:00 Test Item Value Reference Range Interpretation Comments TSH (test code = 21.210 See_Comment H [Automated 49402-9) message] The system which generated this result transmit merna reference range : 0.350 - 5.500 uIU/mL. The reference range was not used to interpret this result as normal/abnormal . ZIA (test code = ZIA) Deputy Felony Clerk ID - ADMIN Lab Interpretation Abnormal (test code = 67734-1) [facility]FERRITIN2020-09-21 06:25:00 Test Item Value Reference Range Interpretation Comments FERRITIN (BEAKER) (test code = 595.00 ng/mL 10.00-291.00 H 361) Deputy Felony Clerk ID - ADMINTSH/FREE T4 IF [id number] 06:25:00 Test Item Value Reference Range Interpretation Comments THYROID STIMULATING HORMONE 21.210 uIU/mL 0.350-5.500 H (BEAKER) (test code = 772) Deputy Felony Clerk ID - QLFTXXedzxxibyp5598-49-93 06:06:00 Test Item Value Reference Range Interpretation Comments Fibrinogen (test code = 340 mg/dL 771-076 7166-7) ZIA (test code = ZIA) Final Information (Auto Output) Lab Interpretation (test Normal code = 38061-2) [facility]PT/[id number] 06:06:00 Test Item Value Reference Interpretation Comments Range Protime (test code = 13.5 See_Comment H [Autom ated 9122-2) message] The system which generated this result transmitted reference range : 9.3 - 12.0 sec. The reference range was not used to interpret this result as normal/abnormal . INR (test code = 1.25 See_Comment [Automated 4121-6) message] The system which generated this result transmitted reference range : <=5.90. The reference range was not used to interpret this result as normal/abnormal . PTT (test code = 38.2 See_Comment H [Automated 74820-2) message] The system which generated this result [...] Output) Lab Interpretation Abnormal (test code = 28301-4) [facility]Fibrinogen2020-09-21 06:06:00 Test Item Value Reference Range Interpretation Comments Fibrinogen (test code = 340 mg/dL 612-132 5734-7) ZIA (test code = ZIA) Final Information (Auto Output) Lab Interpretation (test Normal code = 57302-0) [facility]PT/[id number] 06:06:00 Test Item Value Reference Interpretation Comments Range Protime (test code = 13.5 See_Comment H [Autom ated 5902-2) message] The system which generated this result transmitted reference range : 9.3 - 12.0 sec. The reference range was not used to interpret this result as normal/abnormal . INR (test code = 1.25 See_Comment [Automated 7171-6) message] The system which generated this result transmitted reference range : <=5.90. The reference range was not used to interpret this result as normal/abnormal . PTT (test code = 38.2 See_Comment H [Automated 51540-9) message] The system which generated this result [...] Output) Lab Interpretation Abnormal (test code = 84595-0) [facility]FIBRINOGEN2020-09-21 06:06:00 Test Item Value Reference Range Interpretation Comments FIBRINOGEN LEVEL (BEAKER) (test 340 mg/dL 200-400 code = 658) Final Information (Auto Output)[id number] 06:06:00 Test Item Value Reference Range Interpretation [...] = 2502-3) ZIA (test code = ZIA) Deputy Felony Clerk ID - ADMIN Lab Interpretation (test Abnormal code = 44349-7) [facility] HospitalIron, TIBC, % sat. (without ferritin)2019-12-20 05:59:00 Test Item Value Reference Range Interpretation Comments Iron (test code = 2498-4) 92.0 ug/dL 45-170 TIBC (test code = 2500-7) 151 ug/dL 250-550 L Iron % Saturation (test 61 % 20-55 H code = 2502-3) ZIA (test code = ZIA) Deputy Felony Clerk ID - ADMIN Lab Interpretation (test Abnormal code = 02323-7) [facility] % SAT. (WITHOUT FERRITIN)2019-12-20 05:59:00 Test Item Value Reference Range Interpretation Comments IRON (BEAKER) (test code = 547) 92.0 ug/dL 45.0-170.0 TOTAL IRON BINDING CAPACITY 151 ug/dL 250-550 L (BEAKER) (test code = 769) IRON % SATURATION (2) (BEAKER) 61 % 20-55 H (test code = 2590) Deputy Felony Clerk ID - ADMINCOMPREHENSIVE METABOLIC [id number] 05:55:00 Test Item Value Reference Range Interpretation [...] S NOT APPLICABLE FOR DIALYSIS PATIEN TS. Deputy Felony Clerk ID - DHCCBK-zmujp7000-51-21 05:46:00 Test Item Value Reference Range Interpretation Comments D-Dimer, Quant (test 1.09 mg/L <0.50 H code = 64222-0) ZIA (test code = ZIA) REGARDING D-DIMER RESULTS: The 98% NPV (Negative Predictive Value) for DVT/PE exclusion is 0.50 mg/L FEU as suggested by the telephone information supervisor and as approved by the FDA.Final Information (Auto Output) Lab Interpretation (test Abnormal code = 81122-6) [facility] HospitalD-[id number] 05:46:00 Test Item Value Reference Range Interpretation Comments D-Dimer, Quant (test 1.09 mg/L <0.50 H code = 26200-1) ZIA (test code = ZIA) REGARDING D-DIMER RESULTS: The 98% NPV (Negative Predictive Value) for DVT/PE exclusion is 0.50 mg/L FEU as suggested by the telephone information supervisor and as approved by the FDA.Final Information (Auto Output) Lab Interpretation (test Abnormal code = 61587-7) [facility] HospitalD-[id number] 05:46:00 Test Item Value Reference Range Interpretation Comments D-DIMER QUANTITATIVE (BEAKER) (test 1.09 mg/L <0.50 H code = 671) REGARDING D-DIMER RESULTS: The 98% NPV (Negative Predictive Value) for DVT/PE exclusion is 0.50 mg/LFEU as suggested by the telephone information supervisor and as approved by the FDA.Final Information (Auto Output)Reticulocyte [id number] 05:42:00 Test Item Value Reference Range Interpretation Comments % Retic (test code = 30131-5) 5.9 % 0.4-2.9 H Lab Interpretation (test code = Abnormal 93782-9) [facility] HospitalReticulocyte [id number] 05:42:00 Test Item Value Reference Range Interpretation Comments % Retic (test code = 10071-5) 5.9 % 0.4-2.9 H Lab Interpretation (test code = Abnormal 06968-0) [facility] HospitalRETICULOCYTE [id number] 05:42:00 Test Item Value Reference Range Interpretation Comments RETICULOCYTE COUNT PCT (BEAKER) (test 5.9 % 0.4-2.9 H code = 575) CBC W/PLT COUNT & AUTO [id number] 05:33:00 Test Item Value Reference Range Interpretation [...] U/L 107-206 ZIA (test code = ZIA) Deputy Felony Clerk ID - ADMIN Lab Interpretation (test Normal code = 69897-9) [facility] HospitalLactate dehydrogenase (LDH)2019-12-19 21:19:00 Test Item Value Reference Range Interpretation Comments LDH (test code = 2532-0) 178 U/L 107-206 ZIA (test code = ZIA) Deputy Felony Clerk ID - ADMIN Lab Interpretation (test Normal code = 17912-4) [facility] HospitalLACTATE DEHYDROGENASE (LDH)2019-12-19 21:19:00 Test Item Value Reference Range Interpretation Comments LACTATE DEHYDROGENASE (BEAKER) (test 178 U/L 107-206 code = 635) Deputy Felony Clerk ID - ADMINPOCT-GLUCOSE [id number] 20:47:00 Test Item Value Reference Range Interpretation Comments POC-GLUCOSE METER 102 mg/dL 70-110 : TESTED A T [address]SL [address] (BEAKER) (test code [address], = 1538) [facility] 77 [address]: Deputy Felony Clerk/Techni artemio ID = [id number] for Anahi Sherman POCT-GLUCOSE [id number] 16:18:00 Test Item Value Reference Range Interpretation Comments POC-GLUCOSE METER 96 mg/dL 70-110 : TESTED A T [address] (BEAKER) (test code = [address], 1538) [facility] 77 [address]: Deputy Felony Clerk/Techni artemio ID = [id number] for Nalini Jean Baptiste Basic Metabolic [id number] 06:26:00 Test Item Value Reference Range Interpretation Comments Sodium (test code = 138 meq/L 380-471 4901-2) Potassium (test code = 3.9 meq/L 3.6-5.5 2823-3) Chloride (test code = 99 meq/L 98-106 2075-0) CO2 (test code = 30 meq/L 20-29 H 2028-9) BUN (test code = 47 mg/dL 10-26 H 3094-0) Creatinine (test code 3.04 mg/dL 0.5-1.2 H = 2160-0) Glucose (test code = 82 mg/dL 70-110 2345-7) Calcium (test code = 7.9 mg/dL 8.5-10.5 L 13386-0) EGFR (test code = 15 mL/min/1.73 [place] [address]-1) NOT ACCURATE CREATININE CLEARANCE IN PREDICTING GLOMERULAR FILTRATION RATE . ESTIMATED GFR I S NOT APPLICABLE FOR DIALYSIS PATIENTS. ZIA (test code = ZIA) Deputy Felony Clerk ID - ADMIN Lab Interpretation Abnormal (test code = 54712-4) [facility] HospitalBasic Metabolic [id number] 06:26:00 Test Item Value Reference Range Interpretation Comments Sodium (test code = 138 meq/L 458-189 1578-2) Potassium (test code = 3.9 meq/L 3.6-5.5 2823-3) Chloride (test code = 99 meq/L 98-106 2075-0) CO2 (test code = 30 meq/L 20-29 H 2028-9) BUN (test code = 47 mg/dL 10-26 H 3094-0) Creatinine (test code 3.04 mg/dL 0.5-1.2 H = 2160-0) Glucose (test code = 82 mg/dL 70-110 2345-7) Calcium (test code = 7.9 mg/dL 8.5-10.5 L 15941-3) EGFR (test code = 15 mL/min/1.[place] [address]-3) NOT ACCURATE CREATININE CLEARANCE IN PREDICTING GLOMERULAR FILTRATION RATE . ESTIMATED GFR I S NOT APPLICABLE FOR DIALYSIS PATIENTS. ZIA (test code = ZIA) Deputy Felony Clerk ID - ADMIN Lab Interpretation Abnormal (test code = 20974-0) [facility]BA[facility] METABOLIC [id number] 06:26:00 Test Item Value Reference Range Interpretation [...] S NOT APPLICABLE FOR DIALYSIS PATIEN TS. Deputy Felony Clerk ID - ADMINCBC W/PLT COUNT & AUTO [id number] 06:04:00 Test Item Value Reference Range Interpretation [...] PERCENT (BEAKER) (test code = 2801) POCT-GLUCOSE [id number] 05:35:00 Test Item Value Reference Range Interpretation Comments POC-GLUCOSE METER 85 mg/dL 70-110 : Notified RN/MD: TESTED (BEAKER) (test code = [address]) [place] [address]: Deputy Felony Clerk/Techni artemio ID = [id number] for Siddhartha Healyar POCT-GLUCOSE [id number] 21:46:00 Test Item Value Reference Range Interpretation Comments POC-GLUCOSE METER 125 mg/dL 70-110 H : Notified RN/MD: TESTED (BEAKER) (test code AT [address] = 1538) [place] [address]: Deputy Felony Clerk/Techni artemio ID = [id number] for Niraj , Zonia POCT-GLUCOSE [id number] 16:17:00 Test Item Value Reference Range Interpretation Comments POC-GLUCOSE METER 103 mg/dL 70-110 : TESTED A T [address] (BEAKER) (test code [address] [facility], = 1538) [place] [address]: Deputy Felony Clerk/Techni artemio ID = [id number] for Akhil rs, Shelea POCT-GLUCOSE [id number] 07:56:00 Test Item Value Reference Range Interpretation Comments POC-GLUCOSE METER 111 mg/dL 70-110 H : TESTED A T [address] (BEAKER) (test code [address], = 1538) [place] [address]: Deputy Felony Clerk/Techni artemio ID = [id number] for Akhil rs, Shelea POCT-GLUCOSE [id number] 06:25:00 Test Item Value Reference Range Interpretation Comments POC-GLUCOSE METER 57 mg/dL 70-110 L : TESTED A T [address] (BEAKER) (test code = [address], 15[address]) [place] [address]: Deputy Felony Clerk/Techni artemio ID = [id number] for Brow nDamianen POCT-GLUCOSE [id number] 21:55:00 Test Item Value Reference Range Interpretation Comments POC-GLUCOSE METER 76 mg/dL 70-110 : TESTED A T [address] (BEAKER) (test code = [address], 1538) [place] [address]: Deputy Felony Clerk/Techni artemio ID = [id number] for Brow n, Anne POCT-GLUCOSE [id number] 18:03:00 Test Item Value Reference Range Interpretation Comments POC-GLUCOSE METER 81 mg/dL 70-110 : TESTED A T [address] (BEAKER) (test code = [address], 1538) [facility] [address]: Deputy Felony Clerk/Techni artemio ID = [id number] for Ericka Daniel POCT-GLUCOSE [id number] 12:33:00 Test Item Value Reference Range Interpretation Comments POC-GLUCOSE METER 73 mg/dL 70-110 : TESTED A T [address] (BEAKER) (test code = [address], 1538) [facility] 77 [address]: Deputy Felony Clerk/Techni artemio ID = [id number] for Marisela Bolton Hepatitis B surface [id number] 10:49:00 Test Item Value Reference Range Interpretation Comments Hep B S Ab (test code <8.0 See_Comment [Auto mated = 32083-5) message] The system which generated this result transmit merna reference range : <8.0 mIU/mL. Th e reference range was not used to interpret this result as normal/abnormal . ZIA (test code = ZIA) Deputy Felony Clerk ID - LEONIE Jay Lab Interpretation Normal (test code = 55946-9) [facility]Hep[facility] surface [id number] 10:49:00 Test Item Value Reference Range Interpretation Comments Hep B S Ab (test code <8.0 See_Comment [Auto mated = 11070-0) message] The system which generated this result transmit merna reference range : <8.0 mIU/mL. Th e reference range was not used to interpret this result as normal/abnormal . ZIA (test code = ZIA) Deputy Felony Clerk ID - LEONIE Jay Lab Interpretation Normal (test code = 20695-2) [facility]HEPAT[facility]IS B SURFACE [id number] 10:49:00 Test Item Value Reference Range Interpretation Comments HEPATITIS B SURFACE ANTIBODY < mIU/mL <8.0 (BEAKER) (test code = 647) Deputy Felony Clerk ID - LEONIE FHepatitis B core antibody, [id number] 10:43:00 Test Item Value Reference Range Interpretation Comments Hep B Core Total Ab Nonreactive Nonreactive (test code = 55581-1) ZIA (test code = ZIA) Deputy Felony Clerk ID Bijal Jay Lab Interpretation (test Normal code = 00957-6) [facility] C [id number] 10:43:00 Test Item Value Reference Range Interpretation Comments Hepatitis C Ab (test Nonreactive Nonreactive code = 33337-4) ZIA (test code = ZIA) Deputy Felony Clerk DIONICIO Jay Lab Interpretation (test Normal code = 39203-9) [facility] B core antibody, [id number] 10:43:00 Test Item Value Reference Range Interpretation Comments Hep B Core Total Ab Nonreactive Nonreactive (test code = 96196-4) ZIA (test code = ZIA) Deputy Felony Clerk ID Bijal Jay Lab Interpretation (test Normal code = 20522-4) [facility] C [id number] 10:43:00 Test Item Value Reference Range Interpretation Comments Hepatitis C Ab (test Nonreactive Nonreactive code = 53991-4) ZIA (test code = ZIA) Deputy Felony Clerk DIONICIO Jay Lab Interpretation (test Normal code = 02867-9) [facility] C [id number] 10:43:00 Test Item Value Reference Range Interpretation Comments HEPATITIS C ANTIBODY (BEAKER) Nonreactive Nonreactive (test code = 367) Deputy Felony Clerk DIONICIO HADLEY FHEPATITIS B CORE ANTIBODY, [id number] 10:43:00 Test Item Value Reference Range Interpretation Comments HEPATITIS B CORE TOTAL ANTIBODY Nonreactive Nonreactive (BEAKER) (test code = 497) Deputy Felony Clerk ID Bijal HADLEY FPOCT-GLUCOSE [id number] 06:31:00 Test Item Value Reference Range Interpretation Comments POC-GLUCOSE METER 67 mg/dL 70-110 L : TESTED A T [address] (BEAKER) (test code = [address], 1538) [facility] [address]: Deputy Felony Clerk/Techni artemio ID = [id number] for Anne Busby COMPREHENSIVE METABOLIC [id number] 05:10:00 Test Item Value Reference Range Interpretation [...] S NOT APPLICABLE FOR DIALYSIS PATIEN TS. Deputy Felony Clerk ID - ADMINCBC W/PLT COUNT & AUTO [id number] 04:36:00 Test Item Value Reference Range Interpretation [...] PERCENT (BEAKER) (test code = 2801) POCT-GLUCOSE [id number] 21:14:00 Test Item Value Reference Range Interpretation Comments POC-GLUCOSE METER 79 mg/dL 70-110 : TESTED A T [address] (BEAKER) (test code = [address] [facility], 1538) [facility] [address]: Deputy Felony Clerk/Techni artemio ID = [id number] for Anne Busby POCT-GLUCOSE [id number] 18:35:00 Test Item Value Reference Range Interpretation Comments POC-GLUCOSE METER 68 mg/dL 70-110 L : Notified RN/MD: TESTED (BEAKER) (test code = AT [address]) [place] [address]: Deputy Felony Clerk/Techni artemio ID = [id number] for Alondra Kelley SARS-COV2/RT-PCR ([facility])2019-12-16 17:53:00 Test Item Value Reference Range Interpretation Comments SARS-COV2/RT-PCR (test Negative Not Detected, Negative, code = 1341124) See external report for linked test SARS-COV-2 [facility] (test code = 1755308) Negative result for this test determines that [...] 564(g) of the Act.Fact Sheet for Healthcare Providers:https://www.Stickybits.DevZuz/sites/default/files/product/documents/Fact_Shee v_BT_Uiahbwnjp_Qvmh_LURI-EdU-9.pdfFact Sheet for Healthcare Patients:https://www.Stickybits.DevZuz/sites/default/files/product/ documents/Srlm_Dmppe_Spyqiwkg_Tgay_GRSI-EvG-4.pdfPerforming Laboratory:[facility], [place] [address]Ygmlbokez B surface acoedni0615-35-74 16:57:00 Test Item Value Reference Range Interpretation Comments HBsAg Screen (test code = Nonreactive Nonreactive 5195-3) ZIA (test code = ZIA) Deputy Felony Clerk ID - ADMIN Lab Interpretation (test Normal code = 64201-4) [facility] surface [id number] 16:57:00 Test Item Value Reference Range Interpretation Comments HBsAg Screen (test code = Nonreactive Nonreactive 5195-3) ZIA (test code = ZIA) Deputy Felony Clerk ID - ADMIN Lab Interpretation (test Normal code = 57045-0) [facility] B SURFACE [id number] 16:57:00 Test Item Value Reference Range Interpretation Comments HEPATITIS B SURFACE ANTIGEN (2) Nonreactive Nonreactive (BEAKER) (test code = 2585) Deputy Felony Clerk ID - ADMINANG, TUNNELED CATHETER [id number] 15:06:00Reason for Central Line/PICC?->Need for hemodialysis accessReason [...] the patient's medical record by the nurse. Film Composer: Soto Arias M.D. Nutrition Director: none. Approach: Right internal jugular vein Estimated [...] needle into the right atrium. A 4 Kosovan micropuncture sheath was placed and a 0.035 wire was advanced into the IVC. A subcutaneous tunnel was created in the left anterior chest wall by blunt dissection. A 23 cm tip to cuff 15.5 Kosovan Duraflow 2 catheter was brought through the [...] Arias MDReport Verified Date/Time: 12/16/2019 15:06:45Reading Location: [facility] Radiology Reading Room IR Tunneled Catheter [id number] 15:06:00 Interface, External Ris In - 12/16/2019 [...] the patient's medical record by the nurse. Film Composer: Soto Arias M.D. Ass istant: none. Approach: [...] A 23 cm tip to cuff 15.5 Kosovan Duraflow 2 catheter was brought through the [...] the procedure well [facility]. Results: Spot radiograph of the chest demonstrates the new dialysis catheter to lie in theexpected position with its tip overlying the superior right atrium. Impression: 1. Successful, uncomplicated placement of a left internal jugular tunneled dialysiscatheter using sonographic and fluoroscopic guidance and conscious sedation. Signed: Soto Arias MDReport Verified Date/Time: 12/16/2019 15:06:45 Reading Location: [facility] Radiology [facility] 2019-12-16 15:06:00Interface, External Ris [...] the patient's medical record by the nurse. Film Composer: Soto Arias M.D. Nutrition Director: none. Approach: Right internal jugular vein Estimated [...] A 23 cm tip to cuff 15.5 Kosovan Duraflow 2 catheter was brought through the [...] MDReport Verified Date/Time: 12/16/2019 15:06:45 Reading Location: [facility] Radiology Reading Room [facility] [id number] 14:59:00 Test Item Value Reference Range Interpretation Comments POC-GLUCOSE METER 70 mg/dL 70-110 : Notified RN/MD: [facility] (test code = AT [facility] [address]) [facility] [address]: Deputy Felony Clerk/Techni artemio ID = [id number] for romero Alondra kim POCT-GLUCOSE [id number] 11:13:00 Test Item Value Reference Range Interpretation Comments POC-GLUCOSE METER 72 mg/dL 70-110 : Notified RN/MD: TESTED ([facility]) (test code = AT [facility] [address]) [facility] [address]: Deputy Felony Clerk/Techni artemio ID = [id number] for romero julio Alondra RAD, CHEST, 1 VIEW, NON [id number] 09:20:00Reason for exam:->fallShould this be performed at [...] MDReport Verified Date/Time: 12/16/2019 09:20:06 Reading Location: [facility] Radiology Reading Room XR chest 1 view portable / [id number] 09:20:00Interface, External Ris In - 12/16/2019 9:22 [...] MDReport Verified Date/Time: 12/16/2019 09:20:06 Reading Location: [facility] Radiology Reading Room Electronically yeimi d by: SOTO ARIAS MD on 12/16/2019 09:20 [facility] XR chest 1 view portable / [id number] 09:20:00Interface, External Ris In - 12/16/2019 9:22 [...] MDReport Verified Date/Time: 12/16/2019 09:20:06 Reading Location: [facility] Radiology Reading [facility] 2019-12-16 06:03:00 Test Item Value Reference Range Interpretation Comments POC-GLUCOSE METER 74 mg/dL 70-110 : Notified RN/MD: TESTED (BEAKER) (test code = AT [facility] [address]) [facility] [address]: Deputy Felony Clerk/Techni artemio ID = [id number] for Zonia Healy BASIC METABOLIC [id number] 05:08:00 Test Item Value Reference Range Interpretation [...] I S NOT APPLICABLE FOR DIALYSIS PATIISA GUAMAN. Deputy Felony Clerk ID - ADMINProthrombin time/[id number] 05:01:00 Test Item Value Reference Interpretation Comments [...] Output) Lab Interpretation Abnormal (test code = 73502-7) [facility][id number] 05:01:00 Test Item Value Reference Interpretation Comments [...] Output) Lab Interpretation Abnormal (test code = 56609-6) [facility]/[id number] 05:01:00 Test Item Value Reference Range Interpretation [...] Information (Auto Output)CBC W/PLT COUNT & AUTO [id number] 04:46:00 Test Item Value Reference Range Interpretation [...] PERCENT (BEAKER) (test code = 2801) POCT-GLUCOSE [id number] 17:13:00 Test Item Value Reference Range Interpretation Comments POC-GLUCOSE METER 220 mg/dL 70-110 H TESTED AT [facility] 6720 (BEAKER) (test code = [facility] 1538) [address] BASIC METABOLIC [id number] 15:47:00 Test Item Value Reference Range Interpretation [...] NOT APPLICABLE FOR DIALYSIS PATIEN TS. POCT-GLUCOSE [id number] 11:30:00 Test Item Value Reference Range Interpretation Comments POC-GLUCOSE METER 268 mg/dL 70-110 H TESTED AT [facility] 6720 (BEAKER) (test code = JULIANO Osborne [place] 1538) [address] POCT-GLUCOSE [id number] 07:08:00 Test Item Value Reference Range Interpretation Comments POC-GLUCOSE METER 208 mg/dL 70-110 H TESTED AT [facility] 6720 (BEAKER) (test code = JUILANO Osborne [place] 1538) [address] CALCIUM, [id number] 06:47:00 Test Item Value Reference Range Interpretation Comments CALCIUM IONIZED (BEAKER) (test 1.11 mmol/L 1.12-1.27 L code = 698) PH, BLOOD (BEAKER) (test code = 7.40 1810) BASIC METABOLIC [id number] 06:40:00 Test Item Value Reference Range Interpretation [...] S NOT APPLICABLE FOR DIALYSIS PATIEN TS. [id number] 06:33:00 Test Item Value Reference Range Interpretation Comments PHOSPHORUS (BEAKER) (test code = 5.1 mg/dL 2.3-4.7 H 604) [id number] 06:33:00 Test Item Value Reference Range Interpretation Comments MAGNESIUM (BEAKER) (test code = 2.0 mg/dL 1.6-2.6 627) LACTIC ACID, VENOUS, WHOLE [id number] 06:02:00 Test Item Value Reference Range Interpretation Comments LACTATE BLOOD VENOUS (2) (BEAKER) 0.8 mmol/L 0.5-2.2 (test code = 2872) Effective 08/02/2015: Units/Reference Range ChangeNew: 0.5-2.2 mmol/L Previous: 5-20 mg/dLCBC W/PLT COUNT & AUTO [id number] 05:54:00 Test Item Value Reference Range Interpretation [...] PERCENT (BEAKER) (test code = 2801) POCT-GLUCOSE [id number] 21:30:00 Test Item Value Reference Range Interpretation Comments POC-GLUCOSE METER 248 mg/dL 70-110 H TESTED AT [facility] 6720 [facility] (test code = [place]IANO [place] 1538) [address] RAD, [id number] 21:22:00Reason for exam:->fall, tailbone painFINAL REPORT RAD, [...] MDReport Verified Date/Time: 09/04/2017 21:22:03 Reading Location: [address] Reading Room POCT-GLUCOSE [id number] 17:37:00 Test Item Value Reference Range Interpretation Comments POC-GLUCOSE METER 222 mg/dL 70-110 H TESTED AT [place] [address] (BEAKER) (test code = JULIANO Osborne [place] 1538) [address] POCT-GLUCOSE [id number] 13:55:00 Test Item Value Reference Range Interpretation Comments POC-GLUCOSE METER 194 mg/dL 70-110 H TESTED AT [place] [address] (BEAKER) (test code = JULIANO Osborne [place] 1538) [address] POCT-GLUCOSE [id number] 12:34:00 Test Item Value Reference Range Interpretation Comments POC-GLUCOSE METER 229 mg/dL 70-110 H TESTED AT [place] [address] (BEAKER) (test code = JULIANO Osborne [place] 1538) [address] POCT-GLUCOSE [id number] 08:00:00 Test Item Value Reference Range Interpretation Comments POC-GLUCOSE METER 159 mg/dL 70-110 H TESTED AT [place] [address] (BEAKER) (test code = JULIANO Osborne [facility] 1538) [address] CALCIUM, [id number] 06:00:00 Test Item Value Reference Range Interpretation Comments CALCIUM IONIZED (BEAKER) (test 1.05 mmol/L 1.12-1.27 L code = 698) PH, BLOOD (BEAKER) (test code = 7.45 1810) [id number] 05:59:00 Test Item Value Reference Range Interpretation Comments PHOSPHORUS (BEAKER) (test code = 4.8 mg/dL 2.3-4.7 H 604) [id number] 05:59:00 Test Item Value Reference Range Interpretation Comments MAGNESIUM (BEAKER) (test code = 2.0 mg/dL 1.6-2.6 627) BASIC METABOLIC [id number] 05:59:00 Test Item Value Reference Range Interpretation [...] = 380) CBC W/PLT COUNT & AUTO [id number] 05:32:00 Test Item Value Reference Range Interpretation [...] PERCENT (BEAKER) (test code = 2801) POCT-GLUCOSE [id number] 20:36:00 Test Item Value Reference Range Interpretation Comments POC-GLUCOSE METER 211 mg/dL 70-110 H TESTED AT [place] [address] ([facility]) (test code = [facility] 1538) [address] CREATININE, RANDOM [id number] 19:55:00 Test Item Value Reference Range Interpretation Comments CREATININE URINE (BEAKER) (test 16.1 mg/dL code = 375) Reference Range: No NormalsPROTEIN, RANDOM [id number] 19:55:00 Test Item Value Reference Range Interpretation Comments PROTEIN, URINE (BEAKER) (test code 102 mg/dL 0-14 H = 1569) POCT-GLUCOSE [id number] 18:04:00 Test Item Value Reference Range Interpretation Comments POC-GLUCOSE METER 177 mg/dL 70-110 H TESTED AT [place] [address] ([facility]) (test code = [facility] 1538) [address] POCT-GLUCOSE [id number] 11:59:00 Test Item Value Reference Range Interpretation Comments POC-GLUCOSE METER 244 mg/dL 70-110 H TESTED AT [place] [address] ([facility]) (test code = [facility] 1538) [address] POCT-GLUCOSE [id number] 07:53:00 Test Item Value Reference Range Interpretation Comments POC-GLUCOSE METER 160 mg/dL 70-110 H TESTED AT [facility] 6720 (BEAKER) (test code = [place]O [place] 1538) [address] BASIC METABOLIC [id number] 05:29:00 Test Item Value Reference Range Interpretation [...] S NOT APPLICABLE FOR DIALYSIS PATIEN TS. [id number] 05:21:00 Test Item Value Reference Range Interpretation Comments MAGNESIUM (BEAKER) (test code = 2.1 mg/dL 1.6-2.6 627) HEPATIC FUNCTION [id number] 05:21:00 Test Item Value Reference Range Interpretation [...] code = 23 U/L 6-55 347) TROPONIN [id number] 05:18:00 Test Item Value Reference Range Interpretation [...] PERCENT (BEAKER) (test code = 2801) TROPONIN [id number] 23:40:00 Test Item Value Reference Range Interpretation [...] acidosis, acute neurological disease, and persistent tachyarrhythmia.POCT-GLUCOSE [id number] 22:51:00 Test Item Value Reference Range Interpretation Comments POC-GLUCOSE METER 214 mg/dL 70-110 H TESTED AT [facility] 6720 ([facility]) (test code = JULIANO Osborne [facility] 1538) [address] RAD, CHEST, 1 VIEW, NON [id number] 21:42:00Reason for exam:->CHEST PAINShould this be performed at the bedside?->YesFINAL REPORT RAD, CHEST, 1 VIEW, NON DEPT INDICATION: CHEST PAIN COMPARISON: Chest x-ray 4 weeks ago TECHNIQUE: Single frontal view of the chest. IMPRESSION:Cardiomegaly.Mild pulmonary interstitial edema with a small right- sided effusion.No acute osseous abnormality. Signed: Dario Abrahameport Verified Date/Time: 09/02/2017 21:42:11 Reading Location: [facility] B1 C013T [facility] Reading Room CREATININE, RANDOM [id number] 21:10:00 Test Item Value Reference Range Interpretation Comments CREATININE URINE (BEAKER) (test 35.5 mg/dL code = 375) Reference Range: No NormalsSODIUM, RANDOM [id number] 21:10:00 Test Item Value Reference Range Interpretation Comments SODIUM URINE (BEAKER) (test code = 80 meq/L 243) Reference Range: No NormalsURINALYSIS W/ [id number] 20:59:00 Test Item Value Reference Range Interpretation [...] code = 514) SOURCE(BEAKER) (test code = 9147) BASIC METABOLIC [id number] 16:49:00 Test Item Value Reference Range Interpretation [...] S NOT APPLICABLE FOR DIALYSIS PATIEN TS. [id number] 16:38:00 Test Item Value Reference Range Interpretation [...] (BEAKER) (test code = 700) BASIC METABOLIC [id number] 13:43:00 Test Item Value Reference Range Interpretation [...] NOT APPLICABLE FOR DIALYSIS PATIEN TS. POCT-GLUCOSE [id number] 12:44:00 Test Item Value Reference Range Interpretation Comments POC-GLUCOSE METER 283 mg/dL 70-110 H TESTED AT [facility] 6720 (BEAKER) (test code = JULIANO [place] 1538) [address] CALCIUM, [id number] 07:03:00 Test Item Value Reference Range Interpretation Comments CALCIUM IONIZED (BEAKER) (test 1.02 mmol/L 1.12-1.27 L code = 698) PH, BLOOD (BEAKER) (test code = 7.43 1810) [id number] 05:28:00 Test Item Value Reference Range Interpretation Comments PHOSPHORUS (BEAKER) (test code = 3.3 mg/dL 2.3-4.7 604) [id number] 05:28:00 Test Item Value Reference Range Interpretation Comments MAGNESIUM (BEAKER) (test code = 1.5 mg/dL 1.6-2.6 L 627) BASIC METABOLIC [id number] 05:28:00 Test Item Value Reference Range Interpretation [...] PATIEN TS. CBC W/PLT COUNT & AUTO [id number] 05:06:00 Test Item Value Reference Range Interpretation [...] PERCENT (BEAKER) (test code = 2801) POCT-GLUCOSE [id number] 21:08:00 Test Item Value Reference Range Interpretation Comments POC-GLUCOSE METER 202 mg/dL 70-110 H TESTED AT [place] [address] ([facility]) (test code = [facility] 1538) [address] POCT-GLUCOSE [id number] 16:50:00 Test Item Value Reference Range Interpretation Comments POC-GLUCOSE METER 287 mg/dL 70-110 H TESTED AT [place] [address] ([facility]) (test code = [facility] 1538) [address] POCT-GLUCOSE [id number] 12:21:00 Test Item Value Reference Range Interpretation Comments POC-GLUCOSE METER 213 mg/dL 70-110 H TESTED AT [place] [address] ([facility]) (test code = [facility] 1538) [address] POCT-GLUCOSE [id number] 08:28:00 Test Item Value Reference Range Interpretation Comments POC-GLUCOSE METER 178 mg/dL 70-110 H TESTED AT [place] [address] ([facility]) (test code = [facility] 1538) [address] CALCIUM, [id number] 07:06:00 Test Item Value Reference Range Interpretation Comments CALCIUM IONIZED ([facility]) (test 0.99 mmol/L 1.12-1.27 L code = 698) PH, BLOOD ([facility]) (test code = 7.42 1810) [id number] 05:37:00 Test Item Value Reference Range Interpretation Comments PHOSPHORUS (BEAKER) (test code = 3.5 mg/dL 2.3-4.7 604) [id number] 05:37:00 Test Item Value Reference Range Interpretation Comments MAGNESIUM (BEAKER) (test code = 1.6 mg/dL 1.6-2.6 627) BASIC METABOLIC [id number] 05:37:00 Test Item Value Reference Range Interpretation [...] PATIEN TS. CBC W/PLT COUNT & AUTO [id number] 05:07:00 Test Item Value Reference Range Interpretation [...] PERCENT (BEAKER) (test code = 2801) POCT-GLUCOSE [id number] 21:24:00 Test Item Value Reference Range Interpretation Comments POC-GLUCOSE METER 255 mg/dL 70-110 H TESTED AT [facility] 67 [facility] (test code = JULIANO Osborne [facility] 1538) [address] POCT-GLUCOSE [id number] 17:11:00 Test Item Value Reference Range Interpretation Comments POC-GLUCOSE METER 244 mg/dL 70-110 H TESTED AT [facility] 6720 ([facility] (test code = JULIANO Osborne [facility] 1538) [address] POCT-GLUCOSE [id number] 11:54:00 Test Item Value Reference Range Interpretation Comments POC-GLUCOSE METER 209 mg/dL 70-110 H TESTED AT [facility] 6720 (ROBERT) (test code = J[place]IANO [place] 1538) [address] POCT-GLUCOSE [id number] 08:15:00 Test Item Value Reference Range Interpretation Comments POC-GLUCOSE METER 132 mg/dL 70-110 H TESTED AT [facility] 6720 ([facility] (test code = JULIANO Osborne [facility] 1538) [address] RAD, CHEST, 1 VIEW, NON [id number] 07:44:00Reason for exam:->edemaShould this be performed at the bedside?->YesFINAL REPORT Chest one view AP 08/07/2017 7:44 AM CLINICAL INDICATION: edema COMPARISON: 05/31/2017 IMPRESSION: Cardiomediastinal contours are stable. There is mild pulmonary edema,asymmetric to the right. There are trace bilateral pleural effusions, with bibasilar linear atelectasis. Sternotomy wires remain midline. Signed: Regan Cespedes Verified Date/Time: 08/07/2017 07:44:22 Reading Location: [facility] Radiology Reading Room [id number] 05:30:00 Test Item Value Reference Range Interpretation Comments FERRITIN (BEAKER) (test code = 361) 87 ng/mL 5-275 CBC W/PLT COUNT & AUTO [id number] 05:21:00 Test Item Value Reference Range Interpretation [...] % 20-55 L (test code = 2590) [id number] 05:11:00 Test Item Value Reference Range Interpretation Comments PHOSPHORUS (BEAKER) (test code = 3.6 mg/dL 2.3-4.7 604) [id number] 05:11:00 Test Item Value Reference Range Interpretation Comments MAGNESIUM (BEAKER) (test code = 2.0 mg/dL 1.6-2.6 627) BASIC METABOLIC [id number] 05:11:00 Test Item Value Reference Range Interpretation [...] H (BEAKER) (test code = 700) CALCIUM, [id number] 04:58:00 Test Item Value Reference Range Interpretation Comments CALCIUM IONIZED (BEAKER) (test 1.04 mmol/L 1.12-1.27 L code = 698) PH, BLOOD (BEAKER) (test code = 7.41 1810) RETICULOCYTE [id number] 04:51:00 Test Item Value Reference Range Interpretation Comments RETICULOCYTE COUNT PCT (BEAKER) (test 1.2 % 0.5-1.7 code = 575) POCT-GLUCOSE [id number] 20:49:00 Test Item Value Reference Range Interpretation Comments POC-GLUCOSE METER 202 mg/dL 70-110 H TESTED AT [place] [address] (BEAKER) (test code = JULIANO REYEZ 1538) [address] CREATININE, RANDOM [id number] 18:38:00 Test Item Value Reference Range Interpretation Comments CREATININE URINE (BEAKER) (test 56.3 mg/dL code = 375) Reference Range: No NormalsPROTEIN, RANDOM [id number] 18:38:00 Test Item Value Reference Range Interpretation Comments PROTEIN, URINE (BEAKER) (test code 189 mg/dL 0-14 H = 1569) URINALYSIS W/ [id number] 18:34:00 Test Item Value Reference Range Interpretation [...] 516) SOURCE(BEAKER) (test code = Urine, Voided 7651) POCT-GLUCOSE [id number] 17:38:00 Test Item Value Reference Range Interpretation Comments POC-GLUCOSE METER 143 mg/dL 70-110 H TESTED AT [place] [address] (BEAKER) (test code = JULIANO Osborne [facility] 1538) [address] POCT-GLUCOSE [id number] 12:30:00 Test Item Value Reference Range Interpretation Comments POC-GLUCOSE METER 218 mg/dL 70-110 H TESTED AT [place] [address] (BEAKER) (test code = JULIANO Osborne [facility] 1538) [address] POCT-GLUCOSE [id number] 08:00:00 Test Item Value Reference Range Interpretation Comments POC-GLUCOSE METER 134 mg/dL 70-110 H TESTED AT [place] [address] (BEAKER) (test code = JULIANO Osborne [facility] 1538) [address] CBC W/PLT COUNT & AUTO [id number] 04:23:00 Test Item Value Reference Range Interpretation [...] (BEAKER) (test code = 2801) BASIC METABOLIC [id number] 04:13:00 Test Item Value Reference Range Interpretation [...] S NOT APPLICABLE FOR DIALYSIS PATIEN TS. [id number] 04:10:00 Test Item Value Reference Range Interpretation Comments PHOSPHORUS (BEAKER) (test code = 4.9 mg/dL 2.3-4.7 H 604) [id number] 04:10:00 Test Item Value Reference Range Interpretation Comments MAGNESIUM (BEAKER) (test code = 1.4 mg/dL 1.6-2.6 L 627) [id number] 04:08:00 Test Item Value Reference Range Interpretation Comments FIBRINOGEN LEVEL (BEAKER) (test 548 mg/dl 225-434 H code = 658) [id number] 04:08:00 Test Item Value Reference Range Interpretation Comments PARTIAL THROMBOPLASTIN TIME 37.7 seconds 22.5-36.0 H (BEAKER) (test code = 760) PROTHROMBIN [id number] 04:07:00 Test Item Value Reference Range Interpretation Comments PROTIME (BEAKER) (test code = 16.2 seconds 11.7-14.7 H 759) INR (BEAKER) (test code = 370) 1.3 <=5.9 RECOMMENDED COUMADIN/WARFARIN INR THERAPY RANGESSTANDARD DOSE: 2.0 - 3.0 Includes: PROPHYLAXIS forvenous thrombosis, systemic embolization; TREATMENT for venous thrombosis and/or pulmonary embolus.HIGH RISK: Target INR is 2.5-3.5 for patients with mechanical heart valves.[id number] 16:59:00 Test Item Value Reference Range Interpretation Comments ACTIVATED CLOTTING TIME 219 sec TEST ED AT [facility] 6720 ([facility]) (test code = [place] [address]) [address] BASIC METABOLIC [id number] 14:25:00 Test Item Value Reference Range Interpretation [...] NOT APPLICABLE FOR DIALYSIS PATIEN TS. POCT-GLUCOSE [id number] 13:21:00 Test Item Value Reference Range Interpretation Comments POC-GLUCOSE METER 170 mg/dL 70-110 H TESTED AT [facility] 6720 (BEAKER) (test code = [place]O [place] 1538) [address] POTASSIUM-STAT [id number] 13:20:00 Test Item Value Reference Range Interpretation Comments POTASSIUM (BEAKER) (test code = 4.2 meq/L 3.6-5.5 379) SODIUM NA-STAT [id number] 13:20:00 Test Item Value Reference Range Interpretation Comments SODIUM (BEAKER) (test code = 381) 133 meq/L 135-148 L HGB/HCT (H&H) - STAT [id number] 12:34:00 Test Item Value Reference Range Interpretation Comments HEMOGLOBIN (BEAKER) (test code = 10.8 g/dL 12.0-15.0 L 410) HEMATOCRIT (BEAKER) (test code = 32.0 % 36.0-45.0 L 411) POTASSIUM-STAT [id number] 08:15:00 Test Item Value Reference Range Interpretation Comments POTASSIUM (BEAKER) (test code = 4.1 meq/L 3.6-5.5 379) BLOOD GAS, [id number] 08:15:00 Test Item Value Reference Range Interpretation [...] code = 1819) 70.0 % SODIUM NA-STAT [id number] 08:15:00 Test Item Value Reference Range Interpretation Comments SODIUM (BEAKER) (test code = 381) 130 meq/L 135-148 L GLUCOSE-STAT [id number] 08:15:00 Test Item Value Reference Range Interpretation Comments GLUCOSE RANDOM (BEAKER) (test code 172 mg/dL 70-110 H = 652) HGB/HCT (H&H) - STAT [id number] 08:15:00 Test Item Value Reference Range Interpretation Comments HEMOGLOBIN (BEAKER) (test code = 8.8 g/dL 12.0-15.0 L 410) HEMATOCRIT (BEAKER) (test code = 26.0 % 36.0-45.0 L 411) BASIC METABOLIC [id number] 07:37:00 Test Item Value Reference Range Interpretation [...] PATIEN TS. CBC W/PLT COUNT & AUTO [id number] 07:20:00 Test Item Value Reference Range Interpretation [...] PERCENT (BEAKER) (test code = 2801) POCT-GLUCOSE [id number] 07:03:00 Test Item Value Reference Range Interpretation Comments POC-GLUCOSE METER 186 mg/dL 70-110 H TESTED AT [facility] 6720 (BEAKER) (test code = JULIANO RUTH [place] 1538) [address] B-TYPE NATRIURETIC FACTOR (BNP)2017-06-10 12:44:00 Test Item Value Reference Range Interpretation Comments B-TYPE NATRIURETIC PEPTIDE 1264 pg/mL 0-100 H (BEAKER) (test code = 700) [id number] 12:36:00 Test Item Value Reference Range Interpretation Comments MAGNESIUM (BEAKER) (test code = 1.6 mg/dL 1.6-2.6 627) BASIC METABOLIC [id number] 12:36:00 Test Item Value Reference Range Interpretation [...] NOT APPLICABLE FOR DIALYSIS PATIEN TS. POCT-GLUCOSE [id number] 12:04:00 Test Item Value Reference Range Interpretation Comments POC-GLUCOSE METER 274 mg/dL 70-110 H TESTED AT [facility] 6720 (BEAKER) (test code = [facility] [place] 1538) [address] POCT-GLUCOSE [id number] 07:21:00 Test Item Value Reference Range Interpretation Comments POC-GLUCOSE METER 137 mg/dL 70-110 H TESTED AT [facility] 6720 (BEAKER) (test code = [facility] [place] 1538) [address] BASIC METABOLIC [id number] 05:10:00 Test Item Value Reference Range Interpretation [...] 0-0 (BEAKER) (test code = 413) POCT-GLUCOSE [id number] 21:23:00 Test Item Value Reference Range Interpretation Comments POC-GLUCOSE METER 240 mg/dL 70-110 H TESTED AT [place] [address] ([facility]) (test [facility] = [facility] 1538) [address] POCT-GLUCOSE [id number] 16:42:00 Test Item Value Reference Range Interpretation Comments POC-GLUCOSE METER 234 mg/dL 70-110 H TESTED AT [place] [address] ([facility]) (test code = [facility] [place] [facility] 1538) [address] POCT-GLUCOSE [id number] 13:22:00 Test Item Value Reference Range Interpretation Comments POC-GLUCOSE METER 166 mg/dL 70-110 H TESTED AT [place] [address] ([facility]) (test code = [facility] 1538) [address] RAD, CHEST, 1 VIEW, NON [id number] 09:43:00Reason for exam:->s/p ACBShould this be performed [...] B1 C013X Ortho Consult Reading Room POCT-GLUCOSE [id number] 06:57:00 Test Item Value Reference Range Interpretation Comments POC-GLUCOSE METER 136 mg/dL 70-110 H TESTED AT [place] [address] ([facility]) (test code = [facility] 1538) [address] CALCIUM, [id number] 06:41:00 Test Item Value Reference Range Interpretation Comments CALCIUM IONIZED ([facility]) (test 1.10 mmol/L 1.12-1.27 L code = 698) PH, BLOOD (BEAKER) (test code = 7.42 1810) [id number] 06:17:00 Test Item Value Reference Range Interpretation Comments PHOSPHORUS (BEAKER) (test code = 3.3 mg/dL 2.3-4.7 604) [id number] 06:17:00 Test Item Value Reference Range Interpretation Comments MAGNESIUM (BEAKER) (test code = 1.8 mg/dL 1.6-2.6 627) BASIC METABOLIC [id number] 06:17:00 Test Item Value Reference Range Interpretation [...] PATIEN TS. CBC W/PLT COUNT & AUTO [id number] 05:07:00 Test Item Value Reference Range Interpretation [...] PERCENT (BEAKER) (test code = 2801) POCT-GLUCOSE [id number] 20:56:00 Test Item Value Reference Range Interpretation Comments POC-GLUCOSE METER 196 mg/dL 70-110 H TESTED AT [facility] 6720 [facility] (test code = [facility] 1538) [address] POCT-GLUCOSE [id number] 16:42:00 Test Item Value Reference Range Interpretation Comments POC-GLUCOSE METER 196 mg/dL 70-110 H TESTED AT [facility] 6720 ([facility] (test code = [facility] 1538) [address] POCT-GLUCOSE [id number] 11:45:00 Test Item Value Reference Range Interpretation Comments POC-GLUCOSE METER 215 mg/dL 70-110 H TESTED AT [facility] 6720 (BEAKER) (test code = JULIANO Osborne [facility] 1538) [address] RAD, CHEST, 1 VIEW, NON [id number] 11:15:00Reason for exam:->s/p ACBShould this be performed at the bedside?->YesFINAL REPORT Chest one view compared to May 28, 2017 Discussion: Airspace opacities are seen in both lower lung regions, probably atelectasis. Correlate clinically for infection. I could not exclude small effusions. No pneumothorax. Upper lungs clear. Signed: Jeannette Nava Verified Date/Time: 05/30/2017 11:15:07 Reading Location: [facility] Radiology Reading Room CALCIUM, [id number] 09:21:00 Test Item Value Reference Range Interpretation Comments CALCIUM IONIZED (BEAKER) (test 1.11 mmol/L 1.12-1.27 L code = 698) PH, BLOOD (BEAKER) (test code = 7.36 1810) BASIC METABOLIC [id number] 07:37:00 Test Item Value Reference Range Interpretation [...] S NOT APPLICABLE FOR DIALYSIS PATIEN TS. [id number] 07:28:00 Test Item Value Reference Range Interpretation Comments PHOSPHORUS (BEAKER) (test code = 3.8 mg/dL 2.3-4.7 604) [id number] 07:28:00 Test Item Value Reference Range Interpretation Comments MAGNESIUM (BEAKER) (test code = 1.9 mg/dL 1.6-2.6 627) CBC W/PLT COUNT & AUTO [id number] 07:26:00 Test Item Value Reference Range Interpretation [...] PERCENT (BEAKER) (test code = 2801) POCT-GLUCOSE [id number] 07:21:00 Test Item Value Reference Range Interpretation Comments POC-GLUCOSE METER 146 mg/dL 70-110 H TESTED AT [place] [address] ([facility] (test code = [facility] 1538) [address] POCT-GLUCOSE [id number] 22:02:00 Test Item Value Reference Range Interpretation Comments POC-GLUCOSE METER 201 mg/dL 70-110 H TESTED AT [place] [address] ([facility] (test code = [facility] 1538) [address] POCT-GLUCOSE [id number] 18:27:00 Test Item Value Reference Range Interpretation Comments POC-GLUCOSE METER 240 mg/dL 70-110 H TESTED AT [place] [address] ([facility] (test code = [facility] 1538) [address] POCT-GLUCOSE [id number] 12:13:00 Test Item Value Reference Range Interpretation Comments POC-GLUCOSE METER 193 mg/dL 70-110 H TESTED AT [facility] 6720 ([facility] (test code = [facility] 1538) [address] POCT-GLUCOSE [id number] 09:02:00 Test Item Value Reference Range Interpretation Comments POC-GLUCOSE METER 132 mg/dL 70-110 H TESTED AT [facility] 6720 ([facility] (test code = [facility] 1538) [address] CALCIUM, [id number] 05:42:00 Test Item Value Reference Range Interpretation Comments CALCIUM IONIZED (BEAKER) (test 1.12 mmol/L 1.12-1.27 code = 698) PH, BLOOD (BEAKER) (test code = 7.34 1810) COMPREHENSIVE METABOLIC [id number] 05:33:00 Test Item Value Reference Range Interpretation [...] S NOT APPLICABLE FOR DIALYSIS PATIEN TS. [id number] 05:32:00 Test Item Value Reference Range Interpretation Comments PHOSPHORUS (BEAKER) (test code = 3.6 mg/dL 2.3-4.7 604) [id number] 05:32:00 Test Item Value Reference Range Interpretation Comments MAGNESIUM (BEAKER) (test code = 2.2 mg/dL 1.6-2.6 627) CBC W/PLT COUNT & AUTO [id number] 05:01:00 Test Item Value Reference Range Interpretation [...] code = 416) BASOPHILS ABSOLUTE COUNT (AKER) 0.03 K/ L 0.01-0.08 (test code = 417) IMMATURE GRANULOCYTES-RELATIVE 1 % 0-1 PERCENT (AKER) (test code = 2801) POCT-GLUCOSE [id number] 21:04:00 Test Item Value Reference Range Interpretation Comments POC-GLUCOSE METER 165 mg/dL 70-110 H TESTED AT [place] [address] ([facility]) (test code = JULIANO Osborne [facility] 1538) 85696 POCT-GLUCOSE [id number] 17:30:00 Test Item Value Reference Range Interpretation Comments POC-GLUCOSE METER 236 mg/dL 70-110 H TESTED AT [place] [address] ([facility]) (test code = JULIANO Osborne [facility] 1538) [address] RAD, CHEST, 1 VIEW, NON [id number] 13:53:00Reason for exam:->assess for ill-defined opacityShould this [...] MDReport Verified Date/Time: 05/28/2017 13:53:03 Reading Location: [address] Radiology Reading Room POCT-GLUCOSE [id number] 11:53:00 Test Item Value Reference Range Interpretation Comments POC-GLUCOSE METER 215 mg/dL 70-110 H TESTED AT [facility] 6720 ([facility]) (test code = JULIANO Osborne [place] 1538) [address] POCT-GLUCOSE [id number] 08:32:00 Test Item Value Reference Range Interpretation Comments POC-GLUCOSE METER 168 mg/dL 70-110 H TESTED AT [facility] 67 ([facility]) (test code = BERTNE R [facility] 5928) [address] CALCIUM, [id number] 05:44:00 Test Item Value Reference Range Interpretation Comments CALCIUM IONIZED (BEAKER) (test 1.09 mmol/L 1.12-1.27 L code = 698) PH, BLOOD (BEAKER) (test code = 7.38 1810) [id number] 05:44:00 Test Item Value Reference Range Interpretation Comments PHOSPHORUS (BEAKER) (test code = 3.5 mg/dL 2.3-4.7 604) [id number] 05:44:00 Test Item Value Reference Range Interpretation Comments MAGNESIUM (BEAKER) (test code = 1.9 mg/dL 1.6-2.6 627) BASIC METABOLIC [id number] 05:44:00 Test Item Value Reference Range Interpretation [...] PATIEN TS. CBC W/PLT COUNT & AUTO [id number] 05:05:00 Test Item Value Reference Range Interpretation [...] PERCENT (BEAKER) (test code = 2801) POCT-GLUCOSE [id number] 21:03:00 Test Item Value Reference Range Interpretation Comments POC-GLUCOSE METER 173 mg/dL 70-110 H TESTED AT [facility] 6720 (BEAKER) (test code = BERTNE R [place] 1538) [address] [id number] 18:15:00 Test Item Value Reference Range Interpretation Comments ACTIVATED CLOTTING TIME 147 sec TEST ED AT [place] [address] ([facility]) (test code = [place]IANO [place] 441) [address] [id number] 18:15:00 Test Item Value Reference Range Interpretation Comments ACTIVATED CLOTTING TIME 246 sec TEST ED AT [place] [address] ([facility]) (test code = JULIANO Osborne [place] 441) [address] POCT-GLUCOSE [id number] 12:39:00 Test Item Value Reference Range Interpretation Comments POC-GLUCOSE METER 219 mg/dL 70-110 H TESTED AT [place] [address] ([facility]) (test code = JULIANO Osborne [place] 1538) [address] RAD, CHEST, 1 VIEW, NON [id number] 10:11:00Reason for exam:->pl effusionShould this be performed at the bedside?->YesFINAL REPORT Chest one view compared to May 26 Discussion: There is cardiac prominence. Upper lungs are clear. Ill-defined basilar densities are similar probably atelectasis. No gross effusion or pneumothorax with bilateral chest tubes in place. Signed: Jeannette Nava Verified Date/Time: 05/27/2017 10:11:44 Reading Location: [facility] Radiology Reading Room POCT-GLUCOSE METER 2017-05-27 07:05:00 Test Item Value Reference Range Interpretation Comments POC-GLUCOSE METER 167 mg/dL 70-110 H TESTED AT [place] [address] ([facility]) (test code = JULIANO Osborne [facility] 1538) [address] CALCIUM, [id number] 06:20:00 Test Item Value Reference Range Interpretation Comments CALCIUM IONIZED ([facility]) (test 0.98 mmol/L 1.12-1.27 L code = 698) PH, BLOOD ([facility]) (test code = 7.50 1810) [id number] 04:56:00 Test Item Value Reference Range Interpretation Comments PHOSPHORUS (BEAKER) (test code = 2.6 mg/dL 2.3-4.7 604) [id number] 04:56:00 Test Item Value Reference Range Interpretation Comments MAGNESIUM (BEAKER) (test code = 2.0 mg/dL 1.6-2.6 627) BASIC METABOLIC [id number] 04:56:00 Test Item Value Reference Range Interpretation [...] PATIEN TS. CBC W/PLT COUNT & AUTO [id number] 04:36:00 Test Item Value Reference Range Interpretation [...] PERCENT (BEAKER) (test code = 2801) POCT-GLUCOSE [id number] 21:29:00 Test Item Value Reference Range Interpretation Comments POC-GLUCOSE METER 147 mg/dL 70-110 H TESTED AT [place] [address] ([facility] (test code = [facility] 1538) [address] POCT-GLUCOSE [id number] 17:51:00 Test Item Value Reference Range Interpretation Comments POC-GLUCOSE METER 224 mg/dL 70-110 H TESTED AT [place] [address] ([facility]) (test code = [facility] 1538) 50980 POCT-GLUCOSE [id number] 13:53:00 Test Item Value Reference Range Interpretation Comments POC-GLUCOSE METER 182 mg/dL 70-110 H TESTED AT [place] [address] ([facility]) (test code = [facility] 1538) [address] RAD, CHEST, 1 VIEW, NON [id number] 08:44:00Reason for exam:->pl effusionShould this be performed [...] MDReport Verified Date/Time: 05/26/2017 08:44:25 Reading Location: [address] Radiology Reading Room POCT- GLUCOSE [id number] 07:43:00 Test Item Value Reference Range Interpretation Comments POC-GLUCOSE METER 113 mg/dL 70-110 H TESTED AT [facility] 6720 (BEAKER) (test code = JULIANO Osborne [facility] 1538) [address] CALCIUM, [id number] 06:31:00 Test Item Value Reference Range Interpretation Comments CALCIUM IONIZED (BEAKER) (test 1.07 mmol/L 1.12-1.27 L code = 698) PH, BLOOD (BEAKER) (test code = 7.38 1810) [id number] 04:51:00 Test Item Value Reference Range Interpretation Comments PHOSPHORUS (BEAKER) (test code = 3.2 mg/dL 2.3-4.7 604) [id number] 04:51:00 Test Item Value Reference Range Interpretation Comments MAGNESIUM (BEAKER) (test code = 2.1 mg/dL 1.6-2.6 627) BASIC METABOLIC [id number] 04:51:00 Test Item Value Reference Range Interpretation [...] PATIEN TS. CBC W/PLT COUNT & AUTO [id number] 04:27:00 Test Item Value Reference Range Interpretation [...] PERCENT (BEAKER) (test code = 2801) POCT-GLUCOSE [id number] 23:48:00 Test Item Value Reference Range Interpretation Comments POC-GLUCOSE METER 123 mg/dL 70-110 H TESTED AT [place] [address] (BEAKER) (test [facility] = [facility] 1538) [address] POCT-GLUCOSE [id number] 16:46:00 Test Item Value Reference Range Interpretation Comments POC-GLUCOSE METER 178 mg/dL 70-110 H TESTED AT [place] [address] (BEAKER) (test code = [facility] Dylon [facility] 1538) [address] BASIC METABOLIC [id number] 05:53:00 Test Item Value Reference Range Interpretation [...] S NOT APPLICABLE FOR DIALYSIS PATIEN TS. [id number] 05:52:00 Test Item Value Reference Range Interpretation Comments PHOSPHORUS (BEAKER) (test code = 4.2 mg/dL 2.3-4.7 604) [id number] 05:52:00 Test Item Value Reference Range Interpretation Comments MAGNESIUM (BEAKER) (test code = 2.3 mg/dL 1.6-2.6 627) CALCIUM, [id number] 05:27:00 Test Item Value Reference Range Interpretation Comments CALCIUM IONIZED (BEAKER) (test 1.12 mmol/L 1.12-1.27 code = 698) PH, BLOOD (BEAKER) (test code = 7.38 1810) CBC W/PLT COUNT & AUTO [id number] 05:07:00 Test Item Value Reference Range Interpretation [...] = 2801) RAD, CHEST, 1 VIEW, NON [id number] 04:45:00Reason for exam:->pl effusionShould this be performed at the bedside?->YesFINAL REPORT RAD, CHEST, 1 VIEW, NON DEPT INDICATION: pl effusion COMPARISON:Prior day's exam FINDINGS: Portable frontal view of the chest. IMPRESSION: Support Lines: Stable.Lungs and pleura: Unchanged airspace and pleural opacities. No pneumothorax.Heart and mediastinum: Stable contours. Stable surgical changes.Additional findings: None. Signed: JR Boswell Robert MDReport Verified Date/Time: 05/25/2017 04:45:08 Reading Location: [facility] C013Y CT Body Reading Room POCT-GLUCOSE [id number] 01:52:00 Test Item Value Reference Range Interpretation Comments POC-GLUCOSE METER 126 mg/dL 70-110 H TESTED AT [facility] 6720 (BEAKER) (test code = JULIANO Osborne [place] 1538) [address] POCT-GLUCOSE [id number] 13:07:00 Test Item Value Reference Range Interpretation Comments POC-GLUCOSE METER 118 mg/dL 70-110 H TESTED AT [facility] 6720 ([facility]) (test code = JULIANO [place] 1538) [address] BRONCHIAL CULTURE + GRAM [id number] 11:35:00 Test Item Value Reference Range Interpretation [...] <1+ gram (BEAKER) (test code = positive 513890) cocci in pairs GRAM STAIN RESULT 1+ gram (BEAKER) (test code = variable rods 831469) 1+ Normal respiratory todd presentRAD, CHEST, 1 VIEW, NON [id number] 06:50:00Reason for exam:->pl effusionShould this be performed at the bedside?->YesFINAL REPORT RAD, CHEST, 1 VIEW, NON DEPT INDICATION: pl effusion COMPARISON:Prior day's exam FINDINGS: Portable frontal view of the chest. IMPRESSION: Support Lines: Stable.Lungs and pleura: Unchanged airspace and pleural opacities. No pneumothorax.Heart and mediastinum: Stable contours. Stable surgical changes.Additional findings: None. Signed: JR Elbert, Kelly Bettencourt Verified Date/Time: 05/24/2017 06:50:08 Reading Location: [facility] C013Y CT Body Reading Room BASIC METABOLIC [id number] 04:19:00 Test Item Value Reference Range Interpretation [...] NOT APPLICABLE FOR DIALYSIS PATIEN TS. CALCIUM, [id number] 04:16:00 Test Item Value Reference Range Interpretation Comments CALCIUM IONIZED (BEAKER) (test 1.06 mmol/L 1.12-1.27 L code = 698) PH, BLOOD (BEAKER) (test code = 7.40 1810) [id number] 04:11:00 Test Item Value Reference Range Interpretation Comments PHOSPHORUS (BEAKER) (test code = 6.0 mg/dL 2.3-4.7 H 604) [id number] 04:11:00 Test Item Value Reference Range Interpretation Comments MAGNESIUM (BEAKER) (test code = 2.4 mg/dL 1.6-2.6 627) CBC W/PLT COUNT & AUTO [id number] 03:50:00 Test Item Value Reference Range Interpretation [...] PERCENT (AKER) (test code = 2801) POCT-GLUCOSE [id number] 20:45:00 Test Item Value Reference Range Interpretation Comments POC-GLUCOSE METER 143 mg/dL 70-110 H TESTED AT [facility] 67 ([facility]) (test code = [facility] 1538) [address] POCT-GLUCOSE [id number] 20:45:00 Test Item Value Reference Range Interpretation Comments POC-GLUCOSE METER 145 mg/dL 70-110 H TESTED AT [place] [address] ([facility]) (test code = [facility] 1538) [address] [id number] 13:37:00 Test Item Value Reference Range Interpretation Comments PREALBUMIN (BEAKER) 10 mg/dL 14-45 L Specimen slightly (test code = 586) hemolyzed OXYGEN SATURATION, [id number] 12:31:00 Test Item Value Reference Range Interpretation Comments O2 SATURATION (MEASURED) ([facility]) 94.5 % (test code = 1455) [id number] 11:02:00 Test Item Value Reference Range Interpretation Comments PREALBUMIN (BEAKER) (test code = 10 mg/dL 14-45 L 586) RAD, CHEST, 1 VIEW, NON [id number] 05:14:00while patient is intubated or has chest [...] Verified Date/Time: 05/23/2017 05:14:04 Reading Location: [facility] C013Y CT Body Reading Room BASIC METABOLIC [id number] 03:48:00 Test Item Value Reference Range Interpretation [...] S NOT APPLICABLE FOR DIALYSIS PATIEN TS. [id number] 03:46:00 Test Item Value Reference Range Interpretation Comments MAGNESIUM (BEAKER) 2.4 mg/dL 1.6-2.6 Specimen slightly (test code = 627) hemolyzed [id number] 03:46:00 Test Item Value Reference Range Interpretation Comments PHOSPHORUS (BEAKER) 6.5 mg/dL 2.3-4.7 H Specimen slightly (test code = 604) hemolyzed CBC W/PLT COUNT & AUTO [id number] 03:26:00 Test Item Value Reference Range Interpretation [...] (BEAKER) (test code = 2801) BLOOD GAS, [id number] 03:18:00 Test Item Value Reference Range Interpretation [...] (test code = 1819) 36.0 % CALCIUM, [id number] 16:32:00 Test Item Value Reference Range Interpretation Comments CALCIUM IONIZED (BEAKER) (test 1.11 mmol/L 1.12-1.27 L code = 698) PH, BLOOD (BEAKER) (test code = 7.39 1810) BASIC METABOLIC [id number] 15:43:00 Test Item Value Reference Range Interpretation [...] NOT APPLICABLE FOR DIALYSIS PATIEN TS. POCT-GLUCOSE [id number] 12:53:00 Test Item Value Reference Range Interpretation Comments POC-GLUCOSE METER 118 mg/dL 70-110 H TESTED AT [facility] 6720 (BEAKER) (test code = JULIANO Osborne [facility] 1538) [address] BLOOD GAS, [id number] 10:42:00 Test Item Value Reference Range Interpretation [...] (test code = 1819) 40.0 % POCT-GLUCOSE [id number] 06:46:00 Test Item Value Reference Range Interpretation Comments POC-GLUCOSE METER 106 mg/dL 70-110 TESTED AT [facility] 6720 (BEAKER) (test code = JULIANO Osborne [place] 1538) [address] RAD, CHEST, 1 VIEW, NON [id number] 05:05:00while patient is intubated or has chest [...] MDReport Verified Date/Time: 05/22/2017 05:05:00 Reading Location: [facility] C013Y CT Body ReadingRoom BASIC METABOLIC [id number] 05:00:00 Test Item Value Reference Range Interpretation [...] S NOT APPLICABLE FOR DIALYSIS PATIEN TS. [id number] 04:41:00 Test Item Value Reference Range Interpretation Comments PHOSPHORUS (BEAKER) (test code = 6.4 mg/dL 2.3-4.7 H 604) [id number] 04:41:00 Test Item Value Reference Range Interpretation Comments MAGNESIUM (BEAKER) (test code = 2.6 mg/dL 1.6-2.6 627) CALCIUM, [id number] 04:26:00 Test Item Value Reference Range Interpretation Comments CALCIUM IONIZED (BEAKER) (test 1.09 mmol/L 1.12-1.27 L code = 698) PH, BLOOD (BEAKER) (test code = 7.40 1810) OXYGEN SATURATION, [id number] 04:25:00 Test Item Value Reference Range Interpretation Comments O2 SATURATION (MEASURED) (BEAKER) 77.0 % (test code = 1455) CBC W/PLT COUNT & AUTO [id number] 04:17:00 Test Item Value Reference Range Interpretation [...] code = 2801) LACTIC ACID, ARTERIAL, WHOLE [id number] 00:07:00 Test Item Value Reference Range Interpretation Comments LACTATE BLOOD 1.0 mmol/L 0.5-2.2 Specimen sligh tly ARTERIAL (2) (BEAKER) hemoly zed (test code = 0874) Effective 08/02/2015: Units/Reference Range ChangeNew: 0.5-2.2 mmol/L Previous: 5-20 mg/dLPOCT-GLUCOSE [id number] 23:47:00 Test Item Value Reference Range Interpretation Comments POC-GLUCOSE METER 180 mg/dL 70-110 H TESTED AT [facility] 6720 (BEAKER) (test code = [place] 1538) [address] BLOOD GAS, [id number] 23:46:00 Test Item Value Reference Range Interpretation [...] code = 1819) 100.0 % SODIUM NA-STAT [id number] 23:46:00 Test Item Value Reference Range Interpretation Comments SODIUM (BEAKER) (test code = 381) 134 meq/L 135-148 L GLUCOSE-STAT [id number] 23:46:00 Test Item Value Reference Range Interpretation Comments GLUCOSE RANDOM (BEAKER) (test code 119 mg/dL 70-110 H = 652) HGB/HCT (H&H) - STAT [id number] 23:46:00 Test Item Value Reference Range Interpretation Comments HEMOGLOBIN (BEAKER) (test code = 8.8 g/dL 12.0-15.0 L 410) HEMATOCRIT (BEAKER) (test code = 26.0 % 36.0-45.0 L 411) OXYGEN SATURATION, [id number] 23:45:00 Test Item Value Reference Range Interpretation Comments O2 SATURATION (MEASURED) (BEAKER) 68.1 % (test code = 1455) POTASSIUM-STAT [id number] 23:45:00 Test Item Value Reference Range Interpretation Comments POTASSIUM (BEAKER) (test code = 5.5 meq/L 3.6-5.5 379) POCT-GLUCOSE [id number] 20:58:00 Test Item Value Reference Range Interpretation Comments POC-GLUCOSE METER 133 mg/dL 70-110 H TESTED AT [place] [id number] ([facility] (test code = JULIANO Osborne [place] 15[address]) [id number] POCT-GLUCOSE [id number] 17:58:00 Test Item Value Reference Range Interpretation Comments POC-GLUCOSE METER 210 mg/dL 70-110 H TESTED AT [place] [address] ([facility] (test code = [facility] [place] 1538) [id number] POCT-GLUCOSE [id number] 17:58:00 Test Item Value Reference Range Interpretation Comments POC-GLUCOSE METER 211 mg/dL 70-110 H TESTED AT [place] [address] ([facility]) (test code = [facility] [place] 1538) [id number] POCT-GLUCOSE [id number] 17:58:00 Test Item Value Reference Range Interpretation Comments POC-GLUCOSE METER 232 mg/dL 70-110 H TESTED AT [place] [address] ([facility] (test code = [place] [facility] [employer] [place] 1538) [address] POCT-GLUCOSE [id number] 17:58:00 Test Item Value Reference Range Interpretation Comments POC-GLUCOSE METER 262 mg/dL 70-110 H TESTED AT [place] [address] ([facility] (test code = [facility] [employer] [facility] 1538) [address] BLOOD GAS, [id number] 17:01:00 Test Item Value Reference Range Interpretation [...] (test code = 1819) 60.0 % POTASSIUM-STAT [id number] 17:00:00 Test Item Value Reference Range Interpretation Comments POTASSIUM (BEAKER) (test code = 4.8 meq/L 3.6-5.5 379) POCT-GLUCOSE [id number] 15:52:00 Test Item Value Reference Range Interpretation Comments POC-GLUCOSE METER 267 mg/dL 70-110 H TESTED AT [facility] 67 (BEAKER) (test code = JULIANO Osborne [place] 1538) [address] POCT-GLUCOSE [id number] 14:42:00 Test Item Value Reference Range Interpretation Comments POC-GLUCOSE METER 231 mg/dL 70-110 H TESTED AT [place] [address] (BEAKER) (test code = JULIANO Osborne [facility] 1538) [address] BODY FLUID CELL COUNT WITH [id number] 14:41:00 Test Item Value Reference Range Interpretation [...] Tube (test code = 2873) BASIC METABOLIC [id number] 14:11:00 Test Item Value Reference Range Interpretation [...] S NOT APPLICABLE FOR DIALYSIS PATIEN TS. [id number] 14:08:00 Test Item Value Reference Range Interpretation Comments PHOSPHORUS (BEAKER) (test code = 7.2 mg/dL 2.3-4.7 H 604) [id number] 14:08:00 Test Item Value Reference Range Interpretation Comments MAGNESIUM (BEDANIELA) (test code = 2.6 mg/dL 1.6-2.6 627) POCT-GLUCOSE [id number] 12:49:00 Test Item Value Reference Range Interpretation Comments POC-GLUCOSE METER 224 mg/dL 70-110 H TESTED AT [facility] 67 ([facility]) (test code = [facility] [employer] [facility] 1538) [address] POCT-GLUCOSE [id number] 12:49:00 Test Item Value Reference Range Interpretation Comments POC-GLUCOSE METER 248 mg/dL 70-110 H TESTED AT [facility] 67 ([facility]) (test code = [facility] 1538) [address] RAD, CHEST, 1 VIEW, NON [id number] 12:32:00Reason for exam:->re-intubationShould this be performed at [...] Location: [facility] Reading Room POTASSIUM-STAT [id number] 12:28:00 Test Item Value Reference Range Interpretation Comments POTASSIUM (BEAKER) (test code = 5.5 meq/L 3.6-5.5 379) BLOOD GAS, [id number] 12:28:00 Test Item Value Reference Range Interpretation [...] code = 1819) 100.0 % BLOOD GAS, [id number] 10:53:00 Test Item Value Reference Range Interpretation [...] 36.0 % RAD, CHEST, 1 VIEW, NON [id number] 08:46:00while patient is intubated or has chest [...] MDReport Verified Date/Time: 05/21/2017 08:46:27 Reading Location: [facility] Radiology Reading Room BLOOD GAS, [id number] 05:41:00 Test Item Value Reference Range Interpretation [...] (BEAKER) (test code = 1819) 40 CALCIUM, [id number] 04:35:00 Test Item Value Reference Range Interpretation Comments CALCIUM IONIZED (BEAKER) (test 1.13 mmol/L 1.12-1.27 code = 698) PH, BLOOD (BEAKER) (test code = 7.32 1810) BLOOD GAS, [id number] 04:28:00 Test Item Value Reference Range Interpretation [...] (BEAKER) (test code = 1819) 40.0 % [id number] 04:20:00 Test Item Value Reference Range Interpretation Comments PHOSPHORUS (BEAKER) (test code = 6.2 mg/dL 2.3-4.7 H 604) [id number] 04:20:00 Test Item Value Reference Range Interpretation Comments MAGNESIUM (BEAKER) (test code = 2.4 mg/dL 1.6-2.6 627) HEPATIC FUNCTION [id number] 04:20:00 Test Item Value Reference Range Interpretation [...] = 11 U/L 6-55 347) BASIC METABOLIC [id number] 04:20:00 Test Item Value Reference Range Interpretation [...] APPLICABLE FOR DIALYSIS PATIEN TS. OXYGEN SATURATION, [id number] 04:18:00 Test Item Value Reference Range Interpretation Comments O2 SATURATION (MEASURED) (BEAKER) 68.0 % (test code = 1455) LACTIC ACID, ARTERIAL, WHOLE [id number] 04:12:00 Test Item Value Reference Range Interpretation Comments LACTATE BLOOD ARTERIAL (2) 1.0 mmol/L 0.5-2.2 (BEAKER) (test code = 2874) Effective 08/02/2015: Units/Reference Range ChangeNew: 0.5-2.2 mmol/L Previous: 5-20 mg/dLCBC W/PLT COUNT & AUTO [id number] 04:00:00 Test Item Value Reference Range Interpretation [...] (BEAKER) (test code = 2801) BLOOD GAS, [id number] 00:06:00 Test Item Value Reference Range Interpretation [...] (BEAKER) (test code = 1819) 40.0 % [id number] 18:55:00 Test Item Value Reference Range Interpretation Comments PHOSPHORUS (BEAKER) (test code = 4.8 mg/dL 2.3-4.7 H 604) [id number] 18:55:00 Test Item Value Reference Range Interpretation Comments MAGNESIUM (BEAKER) (test code = 2.3 mg/dL 1.6-2.6 627) BASIC METABOLIC [id number] 18:55:00 Test Item Value Reference Range Interpretation [...] DIALYSIS PATIEN TS. LACTIC ACID, ARTERIAL, WHOLE [id number] 18:53:00 Test Item Value Reference Range Interpretation Comments LACTATE BLOOD 0.9 mmol/L 0.5-2.2 Specimen sligh tly ARTERIAL (2) (BEAKER) hemoly zed (test code = 2874) Effective 08/02/2015: Units/Reference Range ChangeNew: 0.5-2.2 mmol/L Previous: 5-20 mg/dLRAD, CHEST, 1 VIEW, NON [id number] 18:44:00Reason for exam:- >postop cardiacShould this be [...] Verified Date/Time: 05/20/2017 18:44:30 Reading Location: [address] Consult Reading Room Electronically signed by: MIGUEL BHAKTA M.D. on05/20/2017 06:44 PMCBC W/PLT COUNT & AUTO [id number] 18:38:00 Test Item Value Reference Range Interpretation [...] (BEAKER) (test code = 2801) OXYGEN SATURATION, [id number] 18:36:00 Test Item Value Reference Range Interpretation Comments O2 SATURATION (MEASURED) (BEAKER) 72.5 % (test code = 1455) From distal port of IJ central venous catheterSODIUM NA-STAT [id number] 18:30:00 Test Item Value Reference Range Interpretation Comments SODIUM (BEAKER) (test code = 381) 132 meq/L 135-148 L HGB/HCT (H&H) - STAT [id number] 18:30:00 Test Item Value Reference Range Interpretation Comments HEMOGLOBIN (BEAKER) (test code = 9.4 g/dL 12.0-15.0 L 410) HEMATOCRIT (BEAKER) (test code = 28.0 % 36.0-45.0 L 411) GLUCOSE-STAT [id number] 18:30:00 Test Item Value Reference Range Interpretation Comments GLUCOSE RANDOM (BEAKER) (test code 159 mg/dL 70-110 H = 652) BLOOD GAS, [id number] 18:30:00 Test Item Value Reference Range Interpretation [...] (test code = 1819) 60.0 % CALCIUM, [id number] 18:30:00 Test Item Value Reference Range Interpretation Comments CALCIUM IONIZED (BEAKER) (test 0.94 mmol/L 1.12-1.27 L code = 698) PH, BLOOD (BEAKER) (test code = 7.34 1810) POTASSIUM-STAT [id number] 18:28:00 Test Item Value Reference Range Interpretation [...] 55.0-65.0 (test code = 1413) [facility] ([facility]) (test 0.0 % 0.0-5.0 code = 1414) [id number] 17:53:00 Test Item Value Reference Range Interpretation Comments ACTIVATED CLOTTING TIME 103 sec TEST ED AT [place] [address] ([facility]) (test code = MATTHIASAMANDA D[place] [address]) [address] [id number] 17:53:00 Test Item Value Reference Range Interpretation Comments ACTIVATED CLOTTING TIME 466 sec TEST ED AT [place] [address] ([facility]) (test code = JULIANO Osborne [place] [address]) [address] [id number] 17:53:00 Test Item Value Reference Range Interpretation Comments ACTIVATED CLOTTING TIME 543 sec TEST ED AT [place] [address] ([facility]) (test code = [place]AM[place] [address]) [address] [id number] 17:53:00 Test Item Value Reference Range Interpretation Comments ACTIVATED CLOTTING TIME 549 sec TEST ED AT [place] [address] ([facility]) (test code = [place]AM[place] [address]) [address] [id number] 17:53:00 Test Item Value Reference Range Interpretation Comments ACTIVATED CLOTTING TIME 632 sec TEST ED AT [place] [address] ([facility]) (test code = [place] [address]) [address] [id number] 17:53:00 Test Item Value Reference Range Interpretation Comments ACTIVATED CLOTTING TIME 494 sec TEST ED AT [place] [address] ([facility]) (test code = [place]AM[place] [address]) [address] [id number] 17:53:00 Test Item Value Reference Range Interpretation Comments ACTIVATED CLOTTING TIME 587 sec TEST ED AT [place] [address] ([facility]) (test code = [place]DA [place] [address]) [address] [id number] 17:53:00 Test Item Value Reference Range Interpretation Comments ACTIVATED CLOTTING TIME 626 sec TEST ED AT [place] [address] ([facility]) (test code = [place]AM[place]DA [place] [address]) [address] [id number] 17:52:00 Test Item Value Reference Range Interpretation Comments ACTIVATED CLOTTING TIME 808 sec TEST ED AT [place] [address] ([facility]) (test code = [place]AM[place]DA [place] [address]) [address] [id number] 16:54:00 Test Item Value Reference Range Interpretation Comments PARTIAL THROMBOPLASTIN TIME 40.2 seconds 22.5-36.0 H (BEAKER) (test code = 760) [id number] 16:53:00 Test Item Value Reference Range Interpretation Comments FIBRINOGEN LEVEL (BEAKER) (test 306 mg/dl 225-434 code = 658) PROTHROMBIN [id number] 16:50:00 Test Item Value Reference Range Interpretation Comments PROTIME (BEAKER) (test code = 19.6 seconds 11.7-14.7 H 759) INR (BEAKER) (test code = 370) 1.7 <=5.9 RECOMMENDED COUMADIN/WARFARIN INR THERAPY RANGESSTANDARD DOSE: 2.0 - 3.0 Includes: PROPHYLAXIS forvenous thrombosis, systemic embolization; TREATMENT for venous thrombosis and/or pulmonary embolus.HIGH RISK: Target INR is 2.5-3.5 for patients with mechanical heart valves.PLATELET [id number] 16:45:00 Test Item Value Reference Range Interpretation Comments PLATELET COUNT (BEAKER) (test 136 K/CU MM 150-450 L code = 756) POTASSIUM-STAT [id number] 16:15:00 Test Item Value Reference Range Interpretation Comments POTASSIUM (BEAKER) (test code = 4.9 meq/L 3.6-5.5 379) BLOOD GAS, [id number] 16:15:00 Test Item Value Reference Range Interpretation [...] code = 1819) 100.0 % SODIUM NA-STAT [id number] 16:15:00 Test Item Value Reference Range Interpretation Comments SODIUM (BEAKER) (test code = 381) 131 meq/L 135-148 L GLUCOSE-STAT [id number] 16:15:00 Test Item Value Reference Range Interpretation Comments GLUCOSE RANDOM (BEAKER) (test code 198 mg/dL 70-110 H = 652) HGB/HCT (H&H) - STAT [id number] 16:15:00 Test Item Value Reference Range Interpretation Comments HEMOGLOBIN (BEAKER) (test code = 7.5 g/dL 12.0-15.0 L 410) HEMATOCRIT (BEAKER) (test code = 22.0 % 36.0-45.0 L 411) CALCIUM, [id number] 16:14:00 Test Item Value Reference Range Interpretation Comments CALCIUM IONIZED (BEAKER) (test 0.91 mmol/L 1.12-1.27 L code = 698) PH, BLOOD (BEAKER) (test code = 7.39 1810) BLOOD GAS, [id number] 15:39:00 Test Item Value Reference Range Interpretation [...] code = 1819) 70.0 % SODIUM NA-STAT [id number] 15:39:00 Test Item Value Reference Range Interpretation Comments SODIUM (BEAKER) (test code = 381) 131 meq/L 135-148 L GLUCOSE-STAT [id number] 15:39:00 Test Item Value Reference Range Interpretation Comments GLUCOSE RANDOM (BEAKER) (test code 186 mg/dL 70-110 H = 652) HGB/HCT (H&H) - STAT [id number] 15:39:00 Test Item Value Reference Range Interpretation Comments HEMOGLOBIN (BEAKER) (test code = 7.5 g/dL 12.0-15.0 L 410) HEMATOCRIT (BEAKER) (test code = 22.0 % 36.0-45.0 L 411) POTASSIUM-STAT [id number] 15:38:00 Test Item Value Reference Range Interpretation Comments POTASSIUM (BEAKER) (test code = 5.3 meq/L 3.6-5.5 379) BLOOD GAS, [id number] 15:24:00 Test Item Value Reference Range Interpretation [...] code = 1819) 70.0 % SODIUM NA-STAT [id number] 15:24:00 Test Item Value Reference Range Interpretation Comments SODIUM (BEAKER) (test code = 381) 130 meq/L 135-148 L GLUCOSE-STAT [id number] 15:24:00 Test Item Value Reference Range Interpretation Comments GLUCOSE RANDOM (BEAKER) (test code 189 mg/dL 70-110 H = 652) HGB/HCT (H&H) - STAT [id number] 15:24:00 Test Item Value Reference Range Interpretation Comments HEMOGLOBIN (BEAKER) (test code = 6.7 g/dL 12.0-15.0 L 410) HEMATOCRIT (BEAKER) (test code = 20.0 % 36.0-45.0 L 411) POTASSIUM-STAT [id number] 15:23:00 Test Item Value Reference Range Interpretation Comments POTASSIUM (BEAKER) (test code = 5.4 meq/L 3.6-5.5 379) BLOOD GAS, [id number] 15:07:00 Test Item Value Reference Range Interpretation [...] code = 1819) 70.0 % SODIUM NA-STAT [id number] 15:07:00 Test Item Value Reference Range Interpretation Comments SODIUM (BEAKER) (test code = 381) 129 meq/L 135-148 L GLUCOSE-STAT [id number] 15:07:00 Test Item Value Reference Range Interpretation Comments GLUCOSE RANDOM (BEAKER) (test code 172 mg/dL 70-110 H = 652) HGB/HCT (H&H) - STAT [id number] 15:07:00 Test Item Value Reference Range Interpretation Comments HEMOGLOBIN (BEAKER) (test code = 7.1 g/dL 12.0-15.0 L 410) HEMATOCRIT (BEAKER) (test code = 21.0 % 36.0-45.0 L 411) POTASSIUM-STAT [id number] 15:04:00 Test Item Value Reference Range Interpretation Comments POTASSIUM (BEAKER) (test code = 5.0 meq/L 3.6-5.5 379) BLOOD GAS, [id number] 14:21:00 Test Item Value Reference Range Interpretation [...] code = 1819) 70.0 % SODIUM NA-STAT [id number] 14:21:00 Test Item Value Reference Range Interpretation Comments SODIUM (BEAKER) (test code = 381) 133 meq/L 135-148 L GLUCOSE-STAT [id number] 14:21:00 Test Item Value Reference Range Interpretation Comments GLUCOSE RANDOM (BEAKER) (test code 160 mg/dL 70-110 H = 652) HGB/HCT (H&H) - STAT [id number] 14:21:00 Test Item Value Reference Range Interpretation Comments HEMOGLOBIN (BEAKER) (test code = 7.5 g/dL 12.0-15.0 L 410) HEMATOCRIT (BEAKER) (test code = 22.0 % 36.0-45.0 L 411) POTASSIUM-STAT [id number] 14:20:00 Test Item Value Reference Range Interpretation Comments POTASSIUM (BEAKER) (test code = 4.7 meq/L 3.6-5.5 379) BLOOD GAS, [id number] 13:58:00 Test Item Value Reference Range Interpretation [...] code = 1819) 80.0 % SODIUM NA-STAT [id number] 13:58:00 Test Item Value Reference Range Interpretation Comments SODIUM (BEAKER) (test code = 381) 132 meq/L 135-148 L GLUCOSE-STAT [id number] 13:58:00 Test Item Value Reference Range Interpretation Comments GLUCOSE RANDOM (BEAKER) (test code 166 mg/dL 70-110 H = 652) HGB/HCT (H&H) - STAT [id number] 13:58:00 Test Item Value Reference Range Interpretation Comments HEMOGLOBIN (BEAKER) (test code = 7.5 g/dL 12.0-15.0 L 410) HEMATOCRIT (BEAKER) (test code = 22.0 % 36.0-45.0 L 411) POTASSIUM-STAT [id number] 13:57:00 Test Item Value Reference Range Interpretation Comments POTASSIUM (BEAKER) (test code = 4.7 meq/L 3.6-5.5 379) BLOOD GAS, [id number] 13:35:00 Test Item Value Reference Range Interpretation [...] (test code = 1819) 80.0 % GLUCOSE-STAT [id number] 13:35:00 Test Item Value Reference Range Interpretation Comments GLUCOSE RANDOM (BEAKER) (test code 130 mg/dL 70-110 H = 652) HGB/HCT (H&H) - STAT [id number] 13:35:00 Test Item Value Reference Range Interpretation Comments HEMOGLOBIN (BEAKER) (test code = 6.7 g/dL 12.0-15.0 L 410) HEMATOCRIT (BEAKER) (test code = 20.0 % 36.0-45.0 L 411) SODIUM NA-STAT [id number] 13:35:00 Test Item Value Reference Range Interpretation Comments SODIUM (BEAKER) (test code = 381) 133 meq/L 135-148 L POTASSIUM-STAT [id number] 13:34:00 Test Item Value Reference Range Interpretation Comments POTASSIUM (BEAKER) (test code = 4.2 meq/L 3.6-5.5 379) BLOOD GAS, [id number] 13:16:00 Test Item Value Reference Range Interpretation [...] code = 1819) 80.0 % SODIUM NA-STAT [id number] 13:16:00 Test Item Value Reference Range Interpretation Comments SODIUM (BEAKER) (test code = 381) 133 meq/L 135-148 L HGB/HCT (H&H) - STAT [id number] 13:16:00 Test Item Value Reference Range Interpretation Comments HEMOGLOBIN (BEAKER) (test code = 6.3 g/dL 12.0-15.0 L 410) HEMATOCRIT (BEAKER) (test code = 19.0 % 36.0-45.0 L 411) CALCIUM, [id number] 13:15:00 Test Item Value Reference Range Interpretation Comments CALCIUM IONIZED (BEAKER) (test 0.98 mmol/L 1.12-1.27 L code = 698) PH, BLOOD (BEAKER) (test code = 7.34 1810) BLOOD GAS, [id number] 13:15:00 Test Item Value Reference Range Interpretation [...] (test code = 1819) 80.0 % GLUCOSE-STAT [id number] 13:14:00 Test Item Value Reference Range Interpretation Comments GLUCOSE RANDOM (BEAKER) (test code = 92 mg/dL 70-110 652) POTASSIUM-STAT [id number] 13:14:00 Test Item Value Reference Range Interpretation Comments POTASSIUM (BEAKER) (test code = 3.9 meq/L 3.6-5.5 379) BLOOD GAS, [id number] 10:54:00 Test Item Value Reference Range Interpretation [...] 1819) 100.0 % HGB/HCT (H&H) - STAT [id number] 10:54:00 Test Item Value Reference Range Interpretation Comments HEMOGLOBIN (BEAKER) (test code = 9.3 g/dL 12.0-15.0 L 410) HEMATOCRIT (BEAKER) (test code = 27.0 % 36.0-45.0 L 411) SODIUM NA-STAT [id number] 10:54:00 Test Item Value Reference Range Interpretation Comments SODIUM (BEAKER) (test code = 381) 132 meq/L 135-148 L GLUCOSE-STAT [id number] 10:52:00 Test Item Value Reference Range Interpretation Comments GLUCOSE RANDOM (BEAKER) (test code = 94 mg/dL 70-110 652) POTASSIUM-STAT [id number] 10:52:00 Test Item Value Reference Range Interpretation Comments POTASSIUM (BEAKER) (test code = 4.0 meq/L 3.6-5.5 379) HEMOGLOBIN [id number] 09:50:00 Test Item Value Reference Range Interpretation Comments HEMOGLOBIN A1C (BEAKER) (test code = 10.6 % 4.3-6.1 H 368) PLATELET AGGREGATION: FUNCTION [id number] 08:27:00 Test Item Value Reference Range Interpretation Comments WEAK ADP 63 % 60-91 RESULT(BEAKER) (test code = 2135) PLATELET FUNCTION 60-100% indicates SCREEN INTERP (BEAKER) normal platelet (test code = 2173) function [id number] Toshia Post MD (BEAKER) (test code = (electronic signature) 1459) PLATELET COUNT AGG 198 K/CU MM 150-450 (BEAKER) (test code = 2656) for patients on clopidogrel in past two weeksPOCT-GLUCOSE [id number] 08:11:00 Test Item Value Reference Range Interpretation Comments POC-GLUCOSE METER 116 mg/dL 70-110 H TESTED AT [facility] 6720 (BEAKER) (test code = JULIANO [place] 1538) [address] [id number] 07:10:00 Test Item Value Reference Range Interpretation Comments PHOSPHORUS (BEAKER) (test code = 4.5 mg/dL 2.3-4.7 604) [id number] 07:10:00 Test Item Value Reference Range Interpretation Comments MAGNESIUM (BEAKER) (test code = 2.1 mg/dL 1.6-2.6 627) BASIC METABOLIC [id number] 07:10:00 Test Item Value Reference Range Interpretation [...] = 700) CBC W/PLT COUNT & AUTO [id number] 06:46:00 Test Item Value Reference Range Interpretation [...] PERCENT (BEAKER) (test code = 2801) CALCIUM, [id number] 06:40:00 Test Item Value Reference Range Interpretation Comments CALCIUM IONIZED (BEAKER) (test 1.06 mmol/L 1.12-1.27 L code = 698) PH, BLOOD (BEAKER) (test code = 7.39 1810) POCT-GLUCOSE [id number] 23:22:00 Test Item Value Reference Range Interpretation Comments POC-GLUCOSE METER 165 mg/dL 70-110 H TESTED AT [facility] 6720 (BEAKER) (test code = [place]IAN[place] 1538) [address] URINE PROTEIN ELECTROPHORESIS, [id number] 18:02:00 Test Item Value Reference Range Interpretation Comments PROTEIN, URINE 305 mg/dL 0-14 H (BEAKER) (test code = 1569) ALBUMIN URINE ELP 70.9 % (BEAKER) (test code = 1018) GAMMA GLOBULIN URINE 29.1 % (BEAKER) (test code = 1015) UPEP, ID-438 (BEAKER) No monoclonal bands (test code = 2600) detected. [id number] Rocio Galindo MD (BEAKER) (test code = (electronic signature) 2600) PROTEIN ELECTROPHORESIS, [id number] 17:57:00 Test Item Value Reference Range Interpretation [...] all globulin fractions. No monoclonal bands detected. [id number] Rocio Galindo MD ([facility] (test code = (electronic signature) 9091) PROTEIN TOTAL SERUM, 5.5 gm/dL 6.0-8.3 L SPEP (BEAKER) (test code = 0720) POCT-GLUCOSE [id number] 17:15:00 Test Item Value Reference Range Interpretation Comments POC-GLUCOSE METER 209 mg/dL 70-110 H TESTED AT [facility] 6720 (BEAKER) (test code = [facility] 1538) [address] BLOOD GAS, [id number] 15:54:00 Test Item Value Reference Range Interpretation [...] TEMPERATURE (BEAKER) (test 37.0 C code = 1815) FIO2 (BEAKER) (test code = 1819) 36.0 % RAD, CHEST, 1 VIEW, NON [id number] 14:07:00Reason for exam:->SOB, hypoxemiaShould this be performed [...] Regan Cespedes Verified Date/Time: 05/19/2017 14:07:07 Reading Location:[address] Consult Reading Room POCT-GLUCOSE [id number] 11:26:00 Test Item Value Reference Range Interpretation Comments POC-GLUCOSE METER 262 mg/dL 70-110 H TESTED AT [place] [address] ([facility]) (test code = [facility] 1538) [address] POCT-GLUCOSE [id number] 07:37:00 Test Item Value Reference Range Interpretation Comments POC-GLUCOSE METER 170 mg/dL 70-110 H TESTED AT [place] [address] ([facility]) (test code = [facility] 1538) [address] CALCIUM, [id number] 06:06:00 Test Item Value Reference Range Interpretation Comments CALCIUM IONIZED (BEAKER) (test 1.05 mmol/L 1.12-1.27 L code = 698) PH, BLOOD ([facility]) (test code = 7.41 1810) [id number] 05:38:00 Test Item Value Reference Range Interpretation Comments PHOSPHORUS (BEAKER) (test code = 3.9 mg/dL 2.3-4.7 604) [id number] 05:38:00 Test Item Value Reference Range Interpretation Comments MAGNESIUM (BEAKER) (test code = 2.2 mg/dL 1.6-2.6 627) BASIC METABOLIC [id number] 05:38:00 Test Item Value Reference Range Interpretation [...] PATIEN TS. CBC W/PLT COUNT & AUTO [id number] 05:09:00 Test Item Value Reference Range Interpretation [...] % 0-1 PERCENT (BEAKER) (test code = 2808) POCT-GLUCOSE [id number] 22:08:00 Test Item Value Reference Range Interpretation Comments POC-GLUCOSE METER 263 mg/dL 70-110 H TESTED AT [place] [address] [facility] (test code = [facility] 1538) [address] POCT-GLUCOSE [id number] 17:20:00 Test Item Value Reference Range Interpretation Comments POC-GLUCOSE METER 233 mg/dL 70-110 H TESTED AT [place] [address] (BEAKER) (test code = [facility] 1538) [address] POCT-GLUCOSE [id number] 08:28:00 Test Item Value Reference Range Interpretation Comments POC-GLUCOSE METER 154 mg/dL 70-110 H TESTED AT [place] [address] ([facility] (test code = [facility] 1538) [address] BASIC METABOLIC [id number] 06:41:00 Test Item Value Reference Range Interpretation [...] S NOT APPLICABLE FOR DIALYSIS PATIEN TS. [id number] 06:35:00 Test Item Value Reference Range Interpretation Comments PHOSPHORUS (BEAKER) (test code = 4.1 mg/dL 2.3-4.7 604) [id number] 06:35:00 Test Item Value Reference Range Interpretation Comments MAGNESIUM (BEAKER) (test code = 2.1 mg/dL 1.6-2.6 627) CALCIUM, [id number] 06:22:00 Test Item Value Reference Range Interpretation Comments CALCIUM IONIZED (BEAKER) (test 1.10 mmol/L 1.12-1.27 L code = 698) PH, BLOOD (BEAKER) (test code = 7.38 1810) CBC W/PLT COUNT & AUTO [id number] 06:04:00 Test Item Value Reference Range Interpretation [...] PERCENT (BEAKER) (test code = 2803) POCT-GLUCOSE [id number] 03:44:00 Test Item Value Reference Range Interpretation Comments POC-GLUCOSE METER 220 mg/dL 70-110 H TESTED AT [facility] 6720 (BEAKER) (test code = [facility] 1538) [address] POCT-GLUCOSE [id number] 18:27:00 Test Item Value Reference Range Interpretation Comments POC-GLUCOSE METER 256 mg/dL 70-110 H TESTED AT [facility] 6720 (BEAKER) (test code = [facility] 1538) 81600 POCT-GLUCOSE [id number] 15:45:00 Test Item Value Reference Range Interpretation Comments POC-GLUCOSE METER 278 mg/dL 70-110 H TESTED AT [place] [address] ([facility]) (test code = [facility] 1538) [address] POCT-GLUCOSE [id number] 13:22:00 Test Item Value Reference Range Interpretation Comments POC-GLUCOSE METER 278 mg/dL 70-110 H TESTED AT [place] [address] ([facility]) (test code = [facility] 1538) [address] PLATELET AGGREGATION: FUNCTION [id number] 13:18:00 Test Item Value Reference Range Interpretation Comments WEAK ADP 66 % 60-91 RESULT([facility]) (test code = 2135) PLATELET FUNCTION 60-100% indicates SCREEN INTERP ([facility]) normal platelet (test code = 2173) function [id number] Rigoberto Duenas MD ([facility]) (test code = (electronic signature) 8512) PLATELET COUNT AGG 204 K/CU MM 150-450 ([facility]) (test code = 2656) POCT-GLUCOSE [id number] 08:27:00 Test Item Value Reference Range Interpretation Comments POC-GLUCOSE METER 189 mg/dL 70-110 H TESTED AT [place] [address] ([facility]) (test code = [facility] 1538) [address] CALCIUM, [id number] 06:12:00 Test Item Value Reference Range Interpretation Comments CALCIUM IONIZED (BEAKER) (test 1.07 mmol/L 1.12-1.27 L code = 698) PH, BLOOD (BEAKER) (test code = 7.36 1810) [id number] 05:43:00 Test Item Value Reference Range Interpretation Comments PHOSPHORUS (BEAKER) (test code = 3.6 mg/dL 2.3-4.7 604) [id number] 05:43:00 Test Item Value Reference Range Interpretation Comments MAGNESIUM (BEAKER) (test code = 2.1 mg/dL 1.6-2.6 627) BASIC METABOLIC [id number] 05:43:00 Test Item Value Reference Range Interpretation [...] PATIEN TS. CBC W/PLT COUNT & AUTO [id number] 05:05:00 Test Item Value Reference Range Interpretation [...] PERCENT (BEAKER) (test code = 2801) POCT-GLUCOSE [id number] 21:32:00 Test Item Value Reference Range Interpretation Comments POC-GLUCOSE METER 176 mg/dL 70-110 H TESTED AT [place] [address] [facility] (test code = JULIANO Osborne [facility] 1538) [address] POCT-GLUCOSE [id number] 20:27:00 Test Item Value Reference Range Interpretation Comments POC-GLUCOSE METER 161 mg/dL 70-110 H TESTED AT [place] [address] ([facility] (test code = JULIANO Osborne [facility] 1538) [address] POCT-GLUCOSE [id number] 18:23:00 Test Item Value Reference Range Interpretation Comments POC-GLUCOSE METER 185 mg/dL 70-110 H TESTED AT [place] [address] ([facility] (test code = JULIANO Osborne [facility] 1538) [address]187 POCT-GLUCOSE [id number] 13:26:00 Test Item Value Reference Range Interpretation Comments POC-GLUCOSE METER 282 mg/dL 70-110 H TESTED AT [place] [address] ([facility] (test code = JULIANO Osborne [facility] 1538) 11886 URINE [id number] 10:12:00 Test Item Value Reference Range Interpretation Comments CULTURE (BEAKER) (test >100,000 col/mL skin code = 1095) todd POCT-GLUCOSE [id number] 09:01:00 Test Item Value Reference Range Interpretation Comments POC-GLUCOSE METER 268 mg/dL 70-110 H TESTED AT [facility] 6720 (BEAKER) (test code = JULIANO [place] 1538) [address] CALCIUM, [id number] 05:39:00 Test Item Value Reference Range Interpretation Comments CALCIUM IONIZED (BEAKER) (test 0.84 mmol/L 1.12-1.27 L code = 698) PH, BLOOD (BEAKER) (test code = 7.35 1810) BASIC METABOLIC [id number] 05:07:00 Test Item Value Reference Range Interpretation [...] S NOT APPLICABLE FOR DIALYSIS PATIEN TS. [id number] 05:06:00 Test Item Value Reference Range Interpretation Comments PHOSPHORUS (BEAKER) (test code = 3.2 mg/dL 2.3-4.7 604) [id number] 05:06:00 Test Item Value Reference Range Interpretation Comments MAGNESIUM (BEAKER) (test code = 2.3 mg/dL 1.6-2.6 627) CBC W/PLT COUNT & AUTO [id number] 04:42:00 Test Item Value Reference Range Interpretation [...] = 2801) RHEUMATOID FACTOR AB, REFLEX TO [id number] 01:52:00 Test Item Value Reference Range Interpretation Comments RHEUMATOID FACTOR (ROBERT) (test Negative code = 573) POCT-GLUCOSE [id number] 21:57:00 Test Item Value Reference Range Interpretation Comments POC-GLUCOSE METER 105 mg/dL 70-110 TESTED AT [facility] 6720 (ROBERT) (test code = JULIANO Osborne [facility] 1538) 15951 POCT-GLUCOSE [id number] 18:11:00 Test Item Value Reference Range Interpretation Comments POC-GLUCOSE METER 312 mg/dL 70-110 H Notified Dylon Hassan MD/TESTED (ROBERT) (test code = AT [facility] 6720 [facility] 1538) [facility] 7703 0 PET, CARDIAC PERFUSION MULTIPLE STUDIES, REST AND [id number] 16:28:00 Reason for exam:->pvcs, known cadFINAL REPORT PROCEDURE: Rest/Stress MYOCARDIAL PERFUSION PET with regadenoson\\XA9\\ CPT CODE: 37763 INDICATION: Defined extent and severity of known [...] is 23%. LVEF at stress is 36%. Zoogler CT images revealed a right pleural effusion [...] Whaley Verified Date/Time: 05/15/2017 16:28:12 Reading Location: [address] ReadingRoom RAD, CHEST, 1 VIEW, NON [id number] 15:56:00Reason for exam:->SOBShould this be performed at the bedside?->YesFINAL REPORT Comparison: 05/14/2017 TECHNIQUE: Single view of the chest FINDINGS: There is a small right pleural effusion with nonspecific airspace disease. This is unchanged. Left lung is grossly clear. Cardiac silhouette is enlarged. IMPRESSION: 1. No acute cardiopulmonary disease. Signed: Sixto Monk [facility] Verified Date/Time: 05/15/2017 15:56:39 Reading Location: [facility] Rad iology Reading Room POCT-GLUCOSE [id number] 12:54:00 Test Item Value Reference Range Interpretation Comments POC-GLUCOSE METER 308 mg/dL 70-110 H Notified Dylon Hassan MD/TESTED (ROBERT) (test code = AT [facility] 6720 [place] 1538) [facility] 7703 0 U/S, RENAL WITH [id number] 11:04:00Reason for exam:->tracy, htnShould this be performed [...] increase in the resistive indices throughout. Signed: FabyAnahi Rut Verified Date/Time: 05/15/2017 11:04:01 Reading Location: [place] [id number] Ultrasound Reading Room ANA TITER AND [id number] 10:57:00 Test Item Value Reference Range Interpretation Comments ROGER TITER (BEAKER) (test code = :160 1541) ROGER PATTERN (BEAKER) (test code = Speckled 1781) ANTI-NUCLEAR ANTIBODY (ROGER)2017-05-15 10:56:00 Test Item Value Reference Range Interpretation Comments ANTI-NUCLEAR ANTIBODY (ROGER) (BEAKER) Positive Negative A (test code = 418) CALCIUM, [id number] 06:00:00 Test Item Value Reference Range Interpretation Comments CALCIUM IONIZED (BEAKER) (test 1.07 mmol/L 1.12-1.27 L code = 698) PH, BLOOD (BEAKER) (test code = 7.28 1810) HEPATITIS PANEL, [id number] 05:01:00 Test Item Value Reference Range Interpretation Comments HEPATITIS A IGM ANTIBODY (BEAKER) Nonreactive Nonreactive (test code = 498) HEPATITIS B CORE IGM ANTIBODY Nonreactive Nonreactive (BEAKER) (test code = 645) HEPATITIS C ANTIBODY (BEAKER) Nonreactive Nonreactive (test code = 367) HEPATITIS B SURFACE ANTIGEN (2) Nonreactive Nonreactive (BEAKER) (test code = 2585) BASIC METABOLIC [id number] 04:48:00 Test Item Value Reference Range Interpretation [...] NOT APPLICABLE FOR DIALYSIS PATIEN TS. URIC [id number] 04:41:00 Test Item Value Reference Range Interpretation Comments URIC ACID (BEAKER) (test code = 10.3 mg/dL 2.6-7.2 H 773) [id number] 04:41:00 Test Item Value Reference Range Interpretation Comments MAGNESIUM (BEAKER) (test code = 2.0 mg/dL 1.6-2.6 627) [id number] 04:41:00 Test Item Value Reference Range Interpretation Comments PHOSPHORUS (BEAKER) (test code = 4.2 mg/dL 2.3-4.7 604) COMPLEMENT COMPONENT [id number] 04:38:00 Test Item Value Reference Range Interpretation Comments C4 COMPLEMENT (BEAKER) (test code = 28 mg/dL 15-57 394) COMPLEMENT COMPONENT [id number] 04:38:00 Test Item Value Reference Range Interpretation Comments C3 COMPLEMENT (BEAKER) (test code = 103 mg/dL 82-193 393) CBC W/PLT COUNT & AUTO [id number] 04:22:00 Test Item Value Reference Range Interpretation [...] PERCENT (BEAKER) (test code = 2801) POCT-GLUCOSE [id number] 21:46:00 Test Item Value Reference Range Interpretation Comments POC-GLUCOSE METER 173 mg/dL 70-110 H TESTED AT [facility] 6720 [facility] (test code = JULIANO [place] 1538) [address] POCT-GLUCOSE [id number] 21:46:00 Test Item Value Reference Range Interpretation Comments POC-GLUCOSE METER 154 mg/dL 70-110 H TESTED AT [facility] 6720 (BEAKER) (test code = JULIANO [place] 1538) [address] POCT-GLUCOSE [id number] 18:17:00 Test Item Value Reference Range Interpretation Comments POC-GLUCOSE METER 175 mg/dL 70-110 H TESTED AT [facility] 6720 ([facility]) (test code = JULIANO Osborne [facility] 1538) [address] RAD, CHEST, 1 VIEW, NON [id number] 14:56:00Reason for exam:->SOBShould this be performed at the bedside?->YesFINAL REPORT INDICATION: SOB COMPARISON: May 13, 2017 TECHNIQUE: Chest radiograph, single view, portable technique. FINDINGS / IMPRESSION: Enlarged heart shadow, small rightpleural effusion, and pulmonary venous congestion, again demonstrated. No pneumothorax or consolidation. Osseous structures unremarkable. Signed: Thania Dwyer Verified Date/Time: 05/14/2017 14:56:58 Reading Location: [facility] Mammo Reading Room POCT-GLUCOSE [id number] 12:18:00 Test Item Value Reference Range Interpretation Comments POC-GLUCOSE METER 313 mg/dL 70-110 H TESTED AT [facility] 6720 ([facility]) (test code = JULIANO Osborne [facility] 1538) [address] HIV-1 ANTIGEN WITH HIV-1/2 [id number] 12:07:00 Test Item Value Reference Range Interpretation Comments HIV-1 ANTIGEN WITH HIV 1\\T\\2 Nonreactive Nonreactive ANTIBODY (2) ([facility] (test code = 2586) CALCIUM, [id number] 06:37:00 Test Item Value Reference Range Interpretation Comments CALCIUM IONIZED (BEAKER) (test 1.08 mmol/L 1.12-1.27 L code = 698) PH, BLOOD (BEAKER) (test code = 7.25 1810) BASIC METABOLIC [id number] 06:26:00 Test Item Value Reference Range Interpretation [...] pg/mL 0-100 H (test code = 700) [id number] 06:25:00 Test Item Value Reference Range Interpretation Comments PHOSPHORUS (BEAKER) (test code = 5.7 mg/dL 2.3-4.7 H 604) [id number] 06:25:00 Test Item Value Reference Range Interpretation Comments MAGNESIUM (BEAKER) (test code = 1.5 mg/dL 1.6-2.6 L 627) CBC W/PLT COUNT & AUTO [id number] 06:07:00 Test Item Value Reference Range Interpretation [...] PERCENT (BEAKER) (test code = 2801) POCT-GLUCOSE [id number] 22:38:00 Test Item Value Reference Range Interpretation Comments POC-GLUCOSE METER 262 mg/dL 70-110 H TESTED AT [facility] 6720 (BEAKER) (test code = MATTHIASAMANDA Osborne [facility] 1538) [address] PROTEIN, RANDOM [id number] 22:18:00 Test Item Value Reference Range Interpretation Comments PROTEIN, URINE (BEAKER) (test code 641 mg/dL 0-14 H = 1569) CREATININE, RANDOM [id number] 22:07:00 Test Item Value Reference Range Interpretation Comments CREATININE URINE (BEAKER) (test 124.9 mg/dL code = 375) Reference Range: No NormalsURINALYSIS W/ [id number] 22:03:00 Test Item Value Reference Range Interpretation [...] SOURCE(BEAKER) (test code = Urine, Voided 2795) [id number] 19:49:00 Test Item Value Reference Range Interpretation Comments SODIUM (BEAKER) (test 136 meq/L 136-145 code = 381) POTASSIUM (BEAKER) 5.1 meq/L 3.5-5.1 Specimen slightly (test code = 379) hemolyzed CHLORIDE (BEAKER) 104 meq/L 98-107 (test code = 382) CO2 (BEAKER) (test 25 meq/L 22-29 code = 355) Call if K > 5POCT-GLUCOSE [id number] 11:37:00 Test Item Value Reference Range Interpretation Comments POC-GLUCOSE METER 293 mg/dL 70-110 H TESTED AT [facility] 6720 (BEAKER) (test code = J[place]IANO [place] 1538) [address] RAD, CHEST, 1 VIEW, NON [id number] 10:22:00Reason for exam:->SOBShould this be performed at the bedside?->YesFINAL REPORT Chest one view Discussion: There is cardiomegaly and interstitial congestion. A small right-sided effusion is noted. No pneumothorax. IMPRESSIONS: Suspected CHF. Signed: Jeannette Nava Verified Date/Time: 05/13/2017 10:22:34 Reading Location: [facility] Radiology Reading Room POCT-GLUCOSE METER 2017-05-13 08:34:00 Test Item Value Reference Range Interpretation Comments POC-GLUCOSE METER 178 mg/dL 70-110 H TESTED AT [place] [address] (BEAKER) (test code = JULIANO Osborne [facility] 1538) [address] POCT-GLUCOSE [id number] 06:53:00 Test Item Value Reference Range Interpretation Comments POC-GLUCOSE METER 167 mg/dL 70-110 H TESTED AT [place] [address] (BEAKER) (test code = MATTHIASNM Dylon [facility] 1538) [address] [id number] 04:48:00 Test Item Value Reference Range Interpretation Comments BLOOD UREA NITROGEN (BEAKER) (test 36 mg/dL 7-21 H code = 354) [id number] 04:48:00 Test Item Value Reference Range Interpretation Comments SODIUM (BEAKER) (test code = 381) 139 meq/L 136-145 POTASSIUM (BEAKER) (test code = 5.2 meq/L 3.5-5.1 H 379) CHLORIDE (BEAKER) (test code = 382) 109 meq/L 98-107 H CO2 (BEAKER) (test code = 355) 23 meq/L 22-29 [id number] 04:48:00 Test Item Value Reference Range Interpretation [...] WBC 0-0 (BEAKER) (test code = 413) [id number] 23:29:00 Test Item Value Reference Range Interpretation Comments ACTIVATED CLOTTING TIME 136 sec TEST ED AT [place] [address] ([facility]) (test code = JULIANO [place] [facility]) [address] [id number] 20:13:00 Test Item Value Reference Range Interpretation Comments ACTIVATED CLOTTING TIME 175 sec TEST ED AT [place] [address] ([facility]) (test code = [place]IANO [place] 441) [address] [id number] 18:36:00 Test Item Value Reference Range Interpretation Comments ACTIVATED CLOTTING TIME 202 sec TEST ED AT [place] [address] ([facility]) (test code = JULIANO [place] 441) [address] [id number] 18:03:00 Test Item Value Reference Range Interpretation Comments ACTIVATED CLOTTING TIME 208 sec TEST ED AT [facility] 6720 (BEAKER) (test code = JULIANO [place] 441) [address] BASIC METABOLIC [id number] 11:57:00 Test Item Value Reference Range Interpretation [...] NOT APPLICABLE FOR DIALYSIS PATIEN TS. PROTHROMBIN [id number] 11:15:00 Test Item Value Reference Range Interpretation [...] if on CoumadinCBC W/PLT COUNT & AUTO [id number] 11:01:00 Test Item Value Reference Range Interpretation [...] PERCENT (BEAKER) (test code = 2801) POCT-GLUCOSE [id number] 12:35:00 Test Item Value Reference Range Interpretation Comments POC-GLUCOSE METER 249 mg/dL 70-110 H TESTED AT [facility] 6720 (BEAKER) (test code = JULIANO [place] 1538) [address] POCT-GLUCOSE [id number] 09:10:00 Test Item Value Reference Range Interpretation Comments POC-GLUCOSE METER 155 mg/dL 70-110 H TESTED AT [facility] 6720 (BEAKER) (test code = JULIANO Osborne [place] 1538) [address] BASIC METABOLIC [id number] 05:39:00 Test Item Value Reference Range Interpretation [...] S NOT APPLICABLE FOR DIALYSIS PATIEN TS. [id number] 05:27:00 Test Item Value Reference Range Interpretation Comments PHOSPHORUS (BEAKER) (test code = 5.0 mg/dL 2.3-4.7 H 604) [id number] 05:27:00 Test Item Value Reference Range Interpretation Comments MAGNESIUM (BEAKER) (test code = 1.6 mg/dL 1.6-2.6 627) POCT-GLUCOSE [id number] 05:25:00 Test Item Value Reference Range Interpretation Comments POC-GLUCOSE METER 144 mg/dL 70-110 H TESTED AT [facility] 6720 (BEAKER) (test code = JULIANO Osborne [facility] 1538) [address] PROTHROMBIN [id number] 04:58:00 Test Item Value Reference Range Interpretation Comments PROTIME (BEAKER) (test code = 14.2 seconds 11.7-14.7 759) INR (BEAKER) (test code = 370) 1.1 <=5.9 RECOMMENDED COUMADIN/WARFARIN INR THERAPY RANGESSTANDARD DOSE: 2.0 - 3.0 Includes: PROPHYLAXIS forvenous thrombosis, systemic embolization; TREATMENT for venous thrombosis and/or pulmonary embolus.HIGH RISK: Target INR is 2.5-3.5 for patients with mechanical heart valves.POCT-GLUCOSE [id number] 23:55:00 Test Item Value Reference Range Interpretation Comments POC-GLUCOSE METER 86 mg/dL 70-110 TESTED AT [place] [address] ([facility]) (test code = [facility] [address] 1538) B-TYPE NATRIURETIC FACTOR (BNP)2017-04-22 18:13:00 Test Item Value Reference Range Interpretation Comments B-TYPE NATRIURETIC PEPTIDE 1203 pg/mL 0-100 H ([facility]) (test code = 700) POCT-GLUCOSE [id number] 17:36:00 Test Item Value Reference Range Interpretation Comments POC-GLUCOSE METER 259 mg/dL 70-110 H TESTED AT [place] [address] ([facility]) (test code = [facility] 1538) [address] HEMOGLOBIN [id number] 14:24:00 Test Item Value Reference Range Interpretation Comments HEMOGLOBIN A1C ([facility]) (test code = 10.5 % 4.3-6.1 H 368) POCT-GLUCOSE [id number] 12:34:00 Test Item Value Reference Range Interpretation Comments POC-GLUCOSE METER 207 mg/dL 70-110 H TESTED AT [place] [address] ([facility]) (test code = [facility] 1538) [address] [id number] 07:53:00 Test Item Value Reference Range Interpretation Comments PHOSPHORUS (BEAKER) (test code = 3.9 mg/dL 2.3-4.7 604) [id number] 07:53:00 Test Item Value Reference Range Interpretation Comments MAGNESIUM (BEAKER) (test code = 1.6 mg/dL 1.6-2.6 627) BASIC METABOLIC [id number] 07:53:00 Test Item Value Reference Range Interpretation [...] NOT APPLICABLE FOR DIALYSIS PATIEN TS. TROPONIN [id number] 07:29:00 Test Item Value Reference Range Interpretation [...] acidosis, acute neurological disease, and persistent tachyarrhythmia.PROTHROMBIN [id number] 07:01:00 Test Item Value Reference Range Interpretation Comments PROTIME (BEAKER) (test code = 13.8 seconds 11.7-14.7 759) INR (BEAKER) (test code = 370) 1.1 <=5.9 RECOMMENDED COUMADIN/WARFARIN INR THERAPY RANGESSTANDARD DOSE: 2.0 - 3.0 Includes: PROPHYLAXIS forvenous thrombosis, systemic embolization; TREATMENT for venous thrombosis and/or pulmonary embolus.HIGH RISK: Target INR is 2.5-3.5 for patients with mechanical heart valves.POCT-GLUCOSE [id number] 06:28:00 Test Item Value Reference Range Interpretation Comments POC-GLUCOSE METER 198 mg/dL 70-110 H TESTED AT [facility] 6720 ([facility]) (test code = J[place]IANO [place] 1538) [address] CREATINE KINASE (CK), TOTAL AND [id number] 00:49:00 Test Item Value Reference Range Interpretation Comments CREATINE KINASE TOTAL ([facility]) 69 U/L 29-200 (test code = 380) CREATINE KINASE-MB ([facility]) (test 4.3 ng/mL 0.0-6.6 code = 750) CREATINE KINASE-MB INDEX ([facility]) 6.2 % (test code = 395) CK-MB Reference Range:<6.7 Normal6.7-10.0 Borderline>10.0 AbnormalTROPONIN [id number] 00:49:00 Test Item Value Reference Range Interpretation Comments TROPONIN I ([facility]) (test code = 0.05 ng/mL 0.00-0.03 [...] acidosis, acute neurological disease, and persistent tachyarrhythmia.POCT-GLUCOSE [id number] 20:44:00 Test Item Value Reference Range Interpretation Comments POC-GLUCOSE METER 269 mg/dL 70-110 H TESTED AT [facility] 6720 ([facility]) (test code = JULIANO Osborne [place] 1538) [address]
[2021-02-24 15:04] LABS: Absolute Lymphocytes (CBC) 1.8 K/uL (0.7-4.9); Basophils % 1.3 % (0-1.3); Hematocrit 33.9 % (36.0-45.0); Lymphocytes % 28.2 % (15.3-44.8); RBC Red Blood Cell Count 3.86 M/uL (3.86-4.86)
[2021-02-24 15:05] LABS: Protime INR 1.19
[2021-02-24 15:19] LABS: Albumin 2.2 g/dL (3.4-5.0); Bilirubin Direct 0.2 mg/dL (0-0.2); Bilirubin Total 0.4 mg/dL (0.2-1.0); Magnesium 1.8 mg/dL (1.8-2.4); Potassium 4.6 mmol/L (3.5-5.1); Protein, Total 6.2 g/dL (6.4-8.2); Troponin (Emerg Dept Use Only) 0.08 ng/mL (0.0-0.045)
--- NOTE | 2021-02-24 15:52 | EDPHYS ---
Physician Documentation [facility] Name: Christy Priest Age: 65 yrs Sex: Female : 1955 Arrival Date: 02/24/2021 Time: 12:27 Bed 20 Private MD: ED Physician Alessio Parry HPI: 02/24 14:39 This 65 yrs old Female presents to ER via EMS with complaints of Chest Pain. pm1 14:39 The patient or guardian reports chest pain that is located primarily in the right pm1 breast. Onset: yesterday. The pain does not radiate. Associated signs and symptoms: Pertinent positives: shortness of breath, Pertinent negatives: abdominal pain, nausea, palpitations, vomiting. The chest pain is described as aching. Duration: The patient or guardian reports a single episode, that is still ongoing. Modifying factors: the symptoms are aggravated by Volume overloaded. Patient has not had dialysis treatment in over 2 weeks. The patient has not recently seen a physician. Patient with transportation issues to dialysis for 2+ weeks and has therefore missed 2 weeks of dialysis. Patient reports onset of shortness of breath, chest pain, and swelling to her face yesterday. Historical: - Allergies: 13:00 Nitroglycerin; iw 13:00 tramadol; iw 13:00 Vancomycin; iw - PMHx: 13:00 diabetes mellitus; Hypertensive disorder; dialysis; iw - Immunization history:: Adult Immunizations up to date. - Social history:: Smoking status: Patient denies any tobacco usage or history of. ROS: 14:39 Constitutional: Negative for fever, chills, and weight loss. pm1 14:39 Abdomen/GI: Negative for abdominal pain, nausea, vomiting, diarrhea, and constipation, Back: Negative for injury and pain, MS/Extremity: Negative for injury and deformity, Skin: Negative for injury, rash, and discoloration, Neuro: Negative for headache, weakness, numbness, tingling, and seizure. 14:39 Cardiovascular: Positive for chest pain, edema, Negative for palpitations. 14:39 Respiratory: Positive for shortness of breath, Negative for cough. 14:39 All other systems are negative. Exam: 14:39 Constitutional: This is a well developed, well nourished patient who is awake, alert, pm1 and in no acute distress. Head/Face: Normocephalic, atraumatic. 14:39 Skin: Warm, dry with normal turgor. Normal color with no rashes, no lesions, and no evidence of cellulitis. 14:39 Eyes: Exam is negative for acute changes, Periorbital structures: cellulitis, is not appreciated, erythema, is not appreciated, swelling, bilaterally, Greater on right, ecchymosis, is not appreciated, Extraocular movements: no acute changes. 14:39 ENT: Exam is negative for acute changes, Mouth: Lips: normal, moist, Oral mucosa: normal, pink and intact, moist. 14:39 Cardiovascular: Exam negative for acute changes, Rate: normal, Rhythm: regular, Pulses: no pulse deficits are appreciated, Heart sounds: normal, normal S1and S2, Edema: pedal edema, that is moderate. 14:39 Respiratory: the patient does not display signs of respiratory distress, Respirations: no acute changes, Breath sounds: decreased breath sounds, are located in both bases. 14:39 Abdomen/GI: Exam negative for acute changes, Inspection: abdomen appears normal, Palpation: abdomen is soft and non-tender. 14:39 Back: Exam negative for acute changes. 14:39 Musculoskeletal/extremity: Exam is negative for acute changes, ROM: intact in all extremities. 14:39 Neuro: Exam negative for acute changes, Orientation: is normal, Mentation: is normal, Motor: is normal, moves all fours. Vital Signs: 13:26 BP 135 / 93; Pulse 85; Resp 18; Temp 97.5; Pulse Ox 99% on R/A; Weight 69.4 kg; Height iw 5 ft. 7 in. (170.18 cm); 14:54 BP 192 / 102; Pulse 76; Resp 20; Temp 98.(O); Pulse Ox 100% on R/A; mh5 15:30 BP 159 / 98; Pulse 80; Resp 18; Temp 98.0; Pulse Ox 97% ; sl2 16:00 BP 158 / 84; Pulse 79; Resp 20; Pulse Ox 98% on R/A; sl2 16:30 BP 151 / 89; Pulse 81; Resp 18; Temp 98.4; Pulse Ox 99% on R/A; sl2 13:26 Body Mass Index 23.96 (69.40 kg, 170.18 cm) iw MDM: 14:20 Patient medically screened. pm1 15:44 Physician consultation: Dena Ayala MD and will see patient He called to discussed pm1 the patient and has talked to dialysis nurse to perform dialysis today. Plans to remove 4 L. For patients elevated blood pressure would like patient to receive hydralazine or labetalol. 15:45 Data reviewed: vital signs. Data interpreted: Pulse oximetry: on room air is 100 %. pm1 Interpretation: normal. Counseling: I had a detailed discussion with the patient and/or guardian regarding: the historical points, exam findings, and any diagnostic results supporting the discharge/admit diagnosis, lab results, radiology results, the need for further work-up and treatment in the hospital, Informed patient that Dr. Ayala is aware that she is here and has placed orders for dialysis this afternoon. 15:53 Physician consultation: Mariela Renee MD was called at 15:53, was contacted at pm1 15:53, regarding admission, patient's condition, and will see patient. 02/24 14:29 Order name: Basic Metabolic Panel pm1 02/24 14:29 Order name: CBC with Diff pm1 02/24 14:29 Order name: LFT's; Complete Time: 15:43 pm1 02/24 14:29 Order name: Magnesium; Complete Time: 15:43 pm1 02/24 14:29 Order name: NT PRO-BNP; Complete Time: 15:43 pm1 02/24 14:29 Order name: PT-INR; Complete Time: 15:43 pm1 02/24 14:29 Order name: Troponin (emerg Dept Use Only); Complete Time: 15:43 pm1 02/24 14:29 Order name: XRAY Chest (1 view); Complete Time: 16:11 pm1 02/24 14:29 Order name: Basic Metabolic Panel; Complete Time: 15:43 EDMS 02/24 14:29 Order name: CBC with Automated Diff; Complete Time: 15:43 EDMS 02/24 16:16 Order name: SARS-COV-2 RT PCR (Document "Date of Onset" if Symptomatic); Complete Time: em1 10:02/24 20:58 Order name: Glucose, Ancillary Testing; Complete Time: 10:29 EDMS 02/24 14:29 Order name: EKG; Complete Time: 14:29 pm1 02/24 14:29 Order name: Cardiac monitoring; Complete Time: 14:52 pm1 02/24 14:29 Order name: EKG - Nurse/Tech; Complete Time: 14:52 pm1 02/24 14:29 Order name: IV Saline Lock; Complete Time: 14:52 pm1 02/24 14:29 Order name: Labs collected and sent; Complete Time: 14:52 pm1 02/24 14:29 Order name: O2 Per Protocol; Complete Time: 14:52 pm1 02/24 14:29 Order name: O2 Sat Monitoring; Complete Time: 14:52 pm1 02/24 16:03 Order name: Renal EDMS Administered Medications: 16:28 Drug: Zofran (Ondansetron) 4 mg Route: IVP; Site: right forearm; sl2 17:30 Follow up: Response: No adverse reaction sl2 16:30 Drug: fentaNYL (PF) 25 mcg Route: IVP; Site: right forearm; sl2 17:30 Follow up: Response: No adverse reaction sl2 18:03 Follow up: Response: No adverse reaction sl2 17:07 Drug: Benadryl (diphenhydrAMINE) 25 mg Route: IVP; Site: right forearm; sl2 17:30 Follow up: Response: No adverse reaction sl2 Disposition: 02/25 09:23 Co-signature as Attending Physician, Alessio Parry MD I agree with the assessment and carlos plan of care. Disposition Summary: 02/24/21 15:51 Hospitalization Ordered Hospitalization Status: Inpatient Admission pm1 Provider: Mariela Renee pm1 Condition: Stable pm1 Problem: new pm1 Symptoms: have improved pm1 Bed/Room Type: Standard pm1 Location: [facility] ER HOLD(02/24/21 20:06) Room Assignment: ERHOLD-(02/24/21 20:06) Diagnosis - Volume overload pm1 - End stage renal disease pm1 Forms: - Medication Reconciliation Form pm1 - SBAR form pm1 Signatures: Dispatcher [employer] Alessio Milian MD MD cha Williams, Irene, RN RN iw Garcia, Cindy, RN RN cg Quan Hebert, [employer]ITY SUPPORT WORKER pm1 Sissy Saucedo RN RN sl2 Corrections: (The following items were deleted from the chart) 02/24 20:06 15:51 Telemetry/MedSurg ([facility]) pm1 cg 20:06 15:51 pm1 cg
--- NOTE | 2021-02-24 15:52 | ER ---
Nurse's Notes [facility] Name: Christy Priest Age: 65 yrs Sex: Female : 1955 Arrival Date: 02/24/2021 Time: 12:27 Bed 20 Private MD: Diagnosis: Volume overload;End stage renal disease Presentation: 02/24 12:58 Chief complaint: Patient states: has not had dialysis for almost three weeks, was told iw by Pal that she needed her labs drawn before they could dialyze her EMS states: chest pain X 3 hours today, missed dialysis and said she was supposed to have it done here yesterday but there weren't any orders. Coronavirus screen: At this time, the client does not indicate any symptoms associated with coronavirus-19. Ebola Screen: Patient negative for fever greater than or equal to 101.5 degrees Fahrenheit, and additional compatible Ebola Virus Disease symptoms Patient denies exposure to infectious person. Patient denies travel to an Ebola-affected area in the 21 days before illness onset. No symptoms or risks identified at this time. Initial Sepsis Screen: Does the patient meet any 2 criteria? No. Patient's initial sepsis screen is negative. Does the patient have a suspected source of infection? No. Patient's initial sepsis screen is negative. Risk Assessment: Do you want to hurt yourself or someone else? Patient reports no desire to harm self or others. Onset of symptoms was February 24, 2021. 12:58 Method Of Arrival: EMS: [facility] iw 12:58 Acuity: DENNY 3 iw Historical: - Allergies: 13:00 Nitroglycerin; iw 13:00 tramadol; iw 13:00 Vancomycin; iw - PMHx: 13:00 diabetes mellitus; Hypertensive disorder; dialysis; iw - Immunization history:: Adult Immunizations up to date. - Social history:: Smoking status: Patient denies any tobacco usage or history of. Screenin:40 Abuse screen: Denies threats or abuse. Denies injuries from another. Nutritional sl2 screening: No deficits noted. On. Tuberculosis screening: No symptoms or risk factors identified. Fall Risk No fall in past 12 months (0 pts). No secondary diagnosis (0 pts). IV access (20 points). Ambulatory Aid- Crutches/Cane/Walker (15 pts). Gait- Impaired (20 pts.). Mental Status- Oriented to own ability (0 pts). Total Merlos Fall Scale indicates High Risk Score (45 or more points). Fall prevention measures have been instituted. Side Rails Up X 2 Placed Close to Nursing Station Frequent Obs/Assessments Occuring As available patient and family educated on Fall Prevention Program and Strategies. Assessment: 14:40 General: Appears uncomfortable, unkempt, well developed, Behavior is calm, cooperative, sl2 appropriate for age. 14:40 Pain: Complains of pain in right hip Pain radiates to right leg Pain currently is 4 out sl2 of 10 on a pain scale. Quality of pain is described as aching, Pain began gradually, chronic. Neuro: No deficits noted. Level of Consciousness is awake, alert, obeys commands, Oriented to person, place, time, situation, Appropriate for age Supervisor Shop are equal bilaterally weak bilaterally Moves all extremities. Full function Gait is unsteady, Speech is normal, Facial symmetry appears normal. Cardiovascular: No deficits noted. Capillary refill < 3 seconds Rhythm is regular. Respiratory: No deficits noted. GI: No deficits noted. : No deficits noted. No signs and/or symptoms were reported regarding the genitourinary system. EENT: No deficits noted. No signs and/or symptoms were reported regarding the EENT system. Derm: No deficits noted. No signs and/or symptoms reported regarding the dermatologic system. Musculoskeletal: No deficits noted. No signs and/or symptoms reported regarding the musculoskeletal system. 17:50 Reassessment: Patient located in hemodialysis center - hemodialysis currently in sl2 progress. 19:09 Reassessment: Patient not in room, on dialysis. fu 19:44 Reassessment: patient back from dialysis, 4L removed. fu 21:00 Reassessment: No changes from previously documented assessment. Patient is alert, fu oriented x 3, equal unlabored respirations, skin warm/dry/pink. 22:00 Reassessment: No changes from previously documented assessment. Patient is alert, fu oriented x 3, equal unlabored respirations, skin warm/dry/pink. Vital Signs: 13:26 BP 135 / 93; Pulse 85; Resp 18; Temp 97.5; Pulse Ox 99% on R/A; Weight 69.4 kg; Height iw 5 ft. 7 in. (170.18 cm); 14:54 BP 192 / 102; Pulse 76; Resp 20; Temp 98.(O); Pulse Ox 100% on R/A; mh5 15:30 BP 159 / 98; Pulse 80; Resp 18; Temp 98.0; Pulse Ox 97% ; sl2 16:00 BP 158 / 84; Pulse 79; Resp 20; Pulse Ox 98% on R/A; sl2 16:30 BP 151 / 89; Pulse 81; Resp 18; Temp 98.4; Pulse Ox 99% on R/A; sl2 13:26 Body Mass Index 23.96 (69.40 kg, 170.18 cm) ED Course: 12:27 Patient arrived in ED. as 13:00 Triage completed. iw 13:27 Arm band placed on. iw 14:20 Quan Hebert NP is PHCP. pm1 14:20 Alessio Parry MD is Attending Physician. pm1 14:40 No provider procedures requiring assistance completed. Patient maintains SpO2 sl2 saturation greater than 95% on room air. 14:52 Basic Metabolic Panel Sent. [facility] 14:52 CBC with Automated Diff Sent. [facility] 14:52 Basic Metabolic Panel Sent. [facility] 14:52 CBC with Diff Sent. [facility] 14:53 Patient has correct armband on for positive identification. Bed in low position. Call [facility] light in reach. Side rails up X 1. Warm blanket given. residential monitor on. Pulse ox on. NIBP on. 14:53 LFT's Sent. [facility] 14:53 Magnesium Sent. [facility] 14:53 NT PRO-BNP Sent. [facility] 14:53 PT-INR Sent. [facility] 14:53 Troponin (emerg Dept Use Only) Sent. [facility] 14:53 Initial lab(s) drawn, by mt, sent to lab. EKG done, by ED staff, reviewed by Quan Hebert NP. Inserted saline lock: 20 gauge in right antecubital area, using aseptic technique. Blood collected. 15:20 XRAY Chest (1 view) In Process Unspecified. EDMS 15:50 Mariela Renee MD is Hospitalizing Provider. pm1 16:26 Sissy Saucedo, GUILHERME is Primary Nurse. sl2 22:09 Patient admitted, IV remains in place. fu Administered Medications: 16:28 Drug: Zofran (Ondansetron) 4 mg Route: IVP; Site: right forearm; sl2 17:30 Follow up: Response: No adverse reaction sl2 16:30 Drug: fentaNYL (PF) 25 mcg Route: IVP; Site: right forearm; sl2 17:30 Follow up: Response: No adverse reaction sl2 18:03 Follow up: Response: No adverse reaction sl2 17:07 Drug: Benadryl (diphenhydrAMINE) 25 mg Route: IVP; Site: right forearm; sl2 17:30 Follow up: Response: No adverse reaction sl2 Outcome: 15:51 Decision to Hospitalize by Provider. pm1 22:08 Admitted to ER Hold. Please see [facility] for further documentation. fu 22:08 Condition: stable 22:08 Instructed on the need for admit. 22:27 Patient left the ED. fu Signatures: Dispatcher [employer] Nicol Romero Irene, RN RN iw Marinas, Patrick, NP PHYSICIST ASTROPHYSICS pm1 Jovita Meadows [facility] Fortunato Cummins RN RN Sissy Saucedo RN RN sl2 Corrections: (The following items were deleted from the chart) 13:27 12:58 Chief complaint: EMS states: chest pain X 3 hours today, missed dialysis and said iw she was supposed to have it done here yesterday but there weren't any orders iw
[2021-02-24] MEDS ORDERED: ALBUTEROL 2.5 MG/3 ML NEB SOL NEB PRN (15:59)
[2021-02-24] MEDS ORDERED: ACETAMINOPHEN 500 MG TAB PO PRN (15:59)
--- NOTE | 2021-02-24 16:04 | RAD REPORT ---
EXAM DESCRIPTION: RAD - Chest Single View - 02/24/2021 3:20 pm CLINICAL HISTORY: CHEST PAIN COMPARISON: No comparisonsChest Single View dated 01/07/2021; Chest Single View dated 01/03/2021; [facility] st Single View dated 01/02/2021; Chest Single View dated 12/26/2020 FINDINGS: Lines: Left IJ approach dialysis catheter. Lungs: Opacities at the right lung base presumably atelectasis due to the effusion Pleural: Moderate right pleural effusion which is increased in size. Cardiac: Cardiomegaly. Bones: No acute fractures. Sternotomy. Other: IMPRESSION: Mild interval enlargement of the now moderate right pleural effusion. Presumably, there is underlying atelectasis.
[2021-02-24] MEDS ORDERED: GLUCAGON 1 MG/VIAL IM PRN (16:23)
[2021-02-24] MEDS ORDERED: D50W 25 GM/50 ML SYRINGE IV PRN (16:23)
[2021-02-24] MEDS ORDERED: FENTANYL CITR 100 MCG/2 ML ONE (16:28)
[2021-02-24] MEDS ORDERED: ONDANSETRON 4 MG/2 ML VIAL ONE (16:29)
[2021-02-24] MEDS: INSULIN -REGULAR HUMAN 50 UNIT/0.5 ML ML SQ SCH ×2 (16:30→21:00)
[2021-02-24] MEDS ORDERED: HEPARIN 5000 UNIT/ML 1 ML VIAL SQ SCH (17:00)
[2021-02-24] MEDS ORDERED: DIPHENHYDRAMINE 50 MG/ML VIAL ONE ×2 (17:01→17:02)
[2021-02-24] MEDS: SEVELAMER CARBONATE 800 MG TABLET PO SCH (21:44)
[2021-02-24] MEDS: IPRATROPIUM BROM 0.5MG/2.5ML NEB SCH (21:44)
[2021-02-24] MEDS: GABAPENTIN 100 MG CAP PO SCH (21:44)
[2021-02-24 22:39] VITALS: BMI 23.9
[2021-02-24] MEDS ORDERED: HYDROCODONE/APAP 5/325 MG TAB PO ONE (22:50)
[2021-02-24] MEDS ORDERED: HYDROCODONE/APAP 5/325 MG TAB ONE (23:05)
[2021-02-24] MEDS ORDERED: GABAPENTIN 100 MG CAP ONE (23:20)
[2021-02-24] MEDS ORDERED: SEVELAMER CARBONATE 800 MG TABLET PO ONE (23:20)
[2021-02-25] MEDS: IPRATROPIUM BROM 0.5MG/2.5ML NEB SCH ×4 (02:00→20:00)
[2021-02-25] MEDS: SEVELAMER CARBONATE 800 MG TABLET PO SCH ×3 (08:00→16:01)
[2021-02-25] MEDS ORDERED: CLOPIDOGREL 75 MG TABLET ONE (08:46)
[2021-02-25] MEDS ORDERED: ASPIRIN 81 MG CHEWABLE TABLET ONE (08:46)
[2021-02-25] MEDS ORDERED: VITAMIN D 1000 UNIT TAB ONE (08:47)
[2021-02-25] MEDS ORDERED: FLUTICASONE 110 MCG/PUFF 12 GM INH IH SCH (09:00)
[2021-02-25] MEDS: FLUTICASONE IH SCH (09:00)
[2021-02-25] MEDS ORDERED: ISOSORBIDE DINITRATE 30 MG PO SCH (09:00)
[2021-02-25] MEDS ORDERED: PRENATAL VITAMIN PO SCH (09:00)
[2021-02-25] MEDS ORDERED: VITAMIN D 1000 UNIT TAB PO SCH (09:00)
[2021-02-25] MEDS: GABAPENTIN 100 MG CAP PO SCH ×2 (09:00→20:10)
[2021-02-25] MEDS: ASPIRIN 81 MG CHEWABLE TABLET PO SCH (09:11)
[2021-02-25] MEDS: CLOPIDOGREL 75 MG TABLET PO SCH (09:11)
[2021-02-25 11:03] LABS: Absolute Lymphocytes (CBC) 1.7 K/uL (0.7-4.9); Basophils % 1.5 % (0-1.3); Hematocrit 35.3 % (36.0-45.0); Lymphocytes % 27.6 % (15.3-44.8); MPV 7.1 fL (7.6-11.3); RBC Red Blood Cell Count 3.98 M/uL (3.86-4.86)
[2021-02-25 11:20] LABS: Albumin 2.2 g/dL (3.4-5.0); Bilirubin Total 0.4 mg/dL (0.2-1.0); Potassium 4.3 mmol/L (3.5-5.1); Protein, Total 6.7 g/dL (6.4-8.2)
[2021-02-25] MEDS ORDERED: OXYCODONE HCL 5 MG TAB ONE ×3 (11:23→23:05)
--- NOTE | 2021-02-25 11:42 | P.CNS ---
Date of Consult: 02/25/21 Reason for Consult: ESRD Requesting Physician: Mariela Renee History of Present Illness: 65F w/ PMHx of ESRD presumed to be 2/2 Htn/DM on HD qTTS at [facility], EDW 69 kg, HD access: L permacath, dialysis non-compliance w/ no dialysis for the past 2 wks, CAD s/p CABG, Htn, DM, anemia, renal osteodystrophy, & COPD who p/w chest pain. She reports having R-sided chest pain w/ SOB & called 911. She was found to be volume overloaded w/ very high BNP. She received HD yesterday. Trop mildly elevated. She reports no chest pain today. She is covid+ w/ PNA on CXR. Allergies morphine Allergy (Severe, Verified 10/11/20 04:32) Anaphylaxis vancomycin Allergy (Intermediate, Verified 10/11/20 04:32) Shortness of breath basil Allergy (Verified 10/11/20 04:32) Nausea/Vomiting tramadol Allergy (Verified 10/11/20 04:32) Nausea/Vomiting trazodone Allergy (Verified 10/11/20 04:32) Nausea/Vomiting nitroglycerin Adverse Reaction (Mild, Verified 10/11/20 04:32) Nausea/Vomiting Home Medications: Aspirin 81 mg PO DAILY 06/13/20 Clopidogrel Bisulfate [Plavix*] 75 mg PO DAILY 06/13/20 Fluticasone [Flovent Hfa 110*] 2 puff IN DAILY 06/13/20 Furosemide [Lasix*] 40 mg PO BID 06/14/20 Gabapentin [Neurontin*] 100 mg PO BID 06/14/20 Ipratropium Neb [Atrovent*] 0.5 mg NEB [id number] #60 amp 10/12/20 Isosorbide Dinitrate 30 mg PO DAILY #30 tablet 10/12/20 Dicyclomine HCl 1 tab PO Q6H PRN 12/06/20 Vit/Fe Fumarate/FA [ 1 Plus 1 Tablet] 1 tab PO DAILY 12/06/20 Sevelamer Carbonate [Renvela*] 2 tab PO TIDWM 12/06/20 Cefpodoxime Proxetil 100 mg PO Q48H #3 tablet 12/22/20 Cholecalciferol (Vitamin D3) [Vitamin D3] 4,000 unit PO DAILY #60 capsule 01/04/21 - Past Medical/Surgical History Diabetic: Yes -: COPD -: Hypertension -: CAD, CABG x4 vessels (August 2017) -: Diabetes mellitus type 2, insulin-dependent -: Chronic combined systolic/diastolic CHF -: Uterine cancer status post hysterectomy -: Chronic renal disease, stage IV -: TB as a child - Negative 2017 -: Hyperlipidemia -: Iron deficiency anemia -: WEST -: ESRD on HD -: Rectal surgery -: Hysterectomy -: Cholecystectomy -: Gastric surgery -: Appendectomy -: CABG x4 vessel -: RLE Femoral popliteal bypass -: Left great toe amputation Psychosocial/ Personal History: The patient is a . Her son lives with her. She has 3 children. - Family History Brother Medical History: Heart disease, Hypertension, Cancer Notes: Father Medical History: Heart disease, Lung disease, Cancer Notes: - Prostate surgery - Hemorrhage Mother Medical History: GI disease Notes: Sister Medical History: Heart disease Notes: - Respiratory failure - Social History Smoking Status: Current some day smoker Alcohol use: No CD- Drugs: No Caffeine use: Yes Place of Residence: Home Review of Systems General: Weakness Eyes: Unremarkable ENT: Unremarkable Respiratory: Shortness of Breath, SOB with Excertion Cardiovascular: Chest Pain Gastrointestinal: Unremarkable Genitourinary: Unremarkable Musculoskeletal: Unremarkable Integumentary: Other (Generalized xerosis) Neurological: Weakness Lymphatics: Unremarkable Physical Examination Temp Pulse Resp BP Pulse Ox 98.0 F 77 18 141/86 H 100 02/25/21 08:00 02/25/21 08:00 02/25/21 08:00 02/25/21 08:00 02/25/21 08:00 General: Other (Appears chronically ill) HEENT: Atraumatic, Normocephalic Neck: Supple Respiratory: Other (Symmetric chest expansion) Cardiovascular: No rubs, No murmurs Gastrointestinal: Soft and benign, Non-distended Musculoskeletal: No clubbing Integumentary: No warmth Neurological: Normal speech, Normal tone Lymphatics: No axilla or inguinal lymphadenopathy Urinary: Other (No bladdder distention) External genitalia: Deferred Rectal: Deferred Laboratory Data (last 24 hrs) 02/24/21 14:50: PT 13.7 H, INR 1.19 02/24/21 14:50: WBC 6.30, Hgb 10.7 L, Hct 33.9 L, Plt Count 198 02/24/21 14:50: Sodium 139, Potassium 4.6, BUN 38 H, Creatinine 3.15 H, Glucose 99, Magnesium 1.8, Total Bilirubin 0.4, AST 16, ALT 13, Alkaline Phosphatase 106 Conclusions/Impression: # ESRD presumed to be 2/2 Htn/DM on HD qTTS at [facility] HD received yesterday for volume overload HD tomorrow, then qTTS EDW 69 kg, HD access: L permacath Nephro-karis po daily Renal + DM diet Monitor renal panel # COVID Pneumonia Per primary team # Chest pain, CAD, CHF +trop leak BNP super elevated HD received yesterday HD again tomorrow as above Cont cardioprudent meds # Htn Cont current BP med regimen # Anemia Retacrit qTTS # Renal osteodystrophy Cont Sevelamer # COPD Per primary team # DM2 Per primary team
[2021-02-25] MEDS: OXYCODONE HCL 5 MG TAB PO PRN ×3 (11:48→23:24)
--- NOTE | 2021-02-25 11:51 | P.PN ---
Subjective Date of Service: 02/25/21 She had HD yesterday, she is weak, fatigue, she found to have + covid while in ER, she is askin for pain meds, she is not SOB, no CP or no sore throart Physical Examination - Vital Signs Temperature: 98.0 F Blood Pressure: 141/86 Pulse: 77 Respirations: 18 Pulse Ox (%): 100 - Studies Laboratory Data (last 24 hrs) 02/24/21 14:50: PT 13.7 H, INR 1.19 02/24/21 14:50: WBC 6.30, Hgb 10.7 L, Hct 33.9 L, Plt Count 198 02/24/21 14:50: Sodium 139, Potassium 4.6, BUN 38 H, Creatinine 3.15 H, Glucose 99, Magnesium 1.8, Total Bilirubin 0.4, AST 16, ALT 13, Alkaline Phosphatase 106 Assessment & Plan Physician Review Additional Text: Physical Exam General: Alert, Oriented X 3 In no apparent distress but she want pain meds HEENT: Atraumatic, PERRLA, Mucous membr. moist/pink, EOMI, Sclerae nonicteric facial edema improved after HD Neck: Supple, 2+ carotid pulse no bruit, No LAD, Without JVD or thyroid abnormality Respiratory: Normal air movement,no Expiratory wheezes, Rhonchi Cardiovascular: Regular rate/rhythm, Normal S1 S2 Gastrointestinal: Normal bowel sounds, No tenderness Musculoskeletal: No tenderness Integumentary: No rashes Neurological: Normal speech, Normal strength at 5/5 x4 extr, Normal tone, Normal affect Lymphatics: No axilla or inguinal lymphadenopathy Assessment and Plan ESRD with noncompliance with HD -CXR showed pt was hemodyalized last night and she is going to have another HD tommorow labs this morning pending , nephrology following Covid pneumonia -CXR Mild interval enlargement of the now moderate right pleural effusion. Presumably, there is underlying atelectasis.pt not requiring O2 -will start on prednision 20 mg bid wtih Vit C 500 mg and Vit D2000 mg, also zinc thiamine and pepcid HTN -borderline control cont home meds Neuropathy -on neurontin DC plan need PARKING ENFORCEMENT SPECIALIST to be involved, since pt does not have transportation to HD
[2021-02-25] MEDS ORDERED: FAMOTIDINE 20 MG TAB ONE (13:01)
[2021-02-25] MEDS: FAMOTIDINE 20 MG TAB PO SCH (13:06)
[2021-02-25] MEDS ORDERED: IPRATROPIUM BROM 0.5MG/2.5ML ONE ×2 (14:15→20:20)
[2021-02-25] MEDS ORDERED: prednisoLONE 15 MG/5 ML OSYR ONE ×2 (20:07→20:11)
[2021-02-25] MEDS ORDERED: prednisoLONE 15 MG/5 ML OSYR PO SCH (21:00)
[2021-02-26] MEDS: IPRATROPIUM BROM 0.5MG/2.5ML NEB SCH ×2 (01:50→09:30)
[2021-02-26 03:42] LABS: Absolute Lymphocytes (CBC) 0.8 K/uL (0.7-4.9); Basophils % 0.5 % (0-1.3); Hematocrit 34.4 % (36.0-45.0); Lymphocytes % 17.3 % (15.3-44.8); MPV 7.1 fL (7.6-11.3); RBC Red Blood Cell Count 3.86 M/uL (3.86-4.86)
[2021-02-26 03:51] LABS: Albumin 2.2 g/dL (3.4-5.0); Magnesium 1.7 mg/dL (1.8-2.4)
[2021-02-26 03:59] LABS: Potassium 5.7 mmol/L (3.5-5.1)
[2021-02-26] MEDS ORDERED: GLUCAGON 1 MG/VIAL IM PRN ×2 (04:01→04:25)
[2021-02-26] MEDS ORDERED: ALBUTEROL 2.5 MG/3 ML NEB SOL NEB ONE (04:01)
[2021-02-26] MEDS ORDERED: D50W 25 GM/50 ML SYRINGE IV PRN ×2 (04:01→04:25)
[2021-02-26] MEDS ORDERED: D50W 25 GM/50 ML SYRINGE IV ONE ×2 (04:02→04:15)
[2021-02-26] MEDS ORDERED: INSULIN -REGULAR HUMAN 50 UNIT/0.5 ML ML IV ONE (04:02)
[2021-02-26] MEDS ORDERED: INSULIN -REGULAR HUMAN 50 UNIT/0.5 ML ML ONE ×2 (04:14→04:34)
[2021-02-26] MEDS: INSULIN -REGULAR HUMAN 50 UNIT/0.5 ML ML SQ SCH ×5 (04:38→16:30)
[2021-02-26] MEDS ORDERED: MAGNESIUM SULFATE 1 gm IVPB 1 GM/100 ML BAG IV ONE ×2 (06:45→06:50)
[2021-02-26] MEDS: FAMOTIDINE 20 MG TAB PO SCH (08:09)
[2021-02-26] MEDS: ASPIRIN 81 MG CHEWABLE TABLET PO SCH (08:09)
[2021-02-26] MEDS: GABAPENTIN 100 MG CAP PO SCH (08:10)
[2021-02-26] MEDS: SEVELAMER CARBONATE 800 MG TABLET PO SCH ×2 (08:10→11:30)
[2021-02-26] MEDS: CLOPIDOGREL 75 MG TABLET PO SCH (08:10)
[2021-02-26] MEDS: FLUTICASONE IH SCH (08:26)
[2021-02-26] MEDS ORDERED: DRISDOL (VITAMIN D=ERGOCALCIFEROL) 50000 UNIT CAP PO SCH (09:00)
[2021-02-26] MEDS ORDERED: prednisoLONE 15 MG/5 ML OSYR PO SCH (09:00)
[2021-02-26] MEDS ORDERED: VITAMIN D 1000 UNIT TAB PO SCH (09:00)
[2021-02-26] MEDS ORDERED: MULTIVITAMINS,THERAPEUT 1 TAB PO SCH (09:00)
[2021-02-26] MEDS ORDERED: ASCORBIC ACID 500 MG TABLET PO SCH (09:00)
[2021-02-26] MEDS ORDERED: SERTRALINE HCL 50 MG TAB PO SCH (09:00)
[2021-02-26] MEDS ORDERED: THIAMINE HCL 100 MG TABLET PO SCH (09:00)
[2021-02-26] MEDS: OXYCODONE HCL 5 MG TAB PO PRN (09:00)
[2021-02-26 09:31] VITALS: O2SAT 99
[2021-02-26] MEDS ORDERED: ONDANSETRON 4 MG/2 ML VIAL IV PRN (12:27)
[2021-02-26 14:08] VITALS: BP 152/80
--- NOTE | 2021-02-26 15:11 | HP ---
Date of Admission: 02/24/2021 Reason For Admission: Missing dialysis for almost three weeks. History Of Present Illness: This is a 65-year-old female with past medical history significant for [facility] problems including diabetes, hypertension, end-stage renal disease, on hemodialysis, noncompliance, who presented to the emergency room after was told by Alyssa to go to the emergency ro om since she missed dialysis for three weeks and that she will need to have labs and emergent dialysi s. The patient stated that she was compliant, but Alyssa stopped sending her transportation and she was not able to make it to dialysis on time. She denies any chest pain or shortness of breath. She reported allergy to . She has no abdominal pain. No nausea or vomiting. She feels her fa ce is swollen. Nephrology was consulted from the emergency room and , so she can start on dialysis. Labs in the ER showed mild anemia with hemoglobin of 10.7, creatinine of 3.15, BUN 38, and BNP of 54,893. Review of Systems: Otherwise as below. Past Medical History: Significant for diabetes, hypertension, noncompliance, and end-stage renal dis ease, on hemodialysis. Past Surgical History: According to the patient, none. Allergies: TO NITROGLYCERIN, TRAMADOL, AND VANCOMYCIN. Medications: List incomplete. We need to obtain that from the pharmacy. Social History: Apparently, she is . She has three kids. Does not smoke or drink or use an y drugs. She is currently retired. Family History: Both father and mother . Mother of an infection after kidney surgery and f ather of unknown etiology according to the patient. Review of Systems: Denies any fever, chills, night sweats, dizziness, headache, or blurred vision. There is no cough, s putum, or shortness of breath. No chest pain, palpitations, PND, orthopnea, or dyspnea on exertion. She does have lower extremity edema. There is no nausea, vomiting, abdominal distention . Hematuria, depression, anxiety, seizure, or stroke. Physical Examination: Vital Signs: Currently, blood pressure is 155/93, respiratory rate 18, pulse 85, temperature 97.5, a nd saturating 99% on room air. General: She is alert and oriented x3. Does not look in much of distress. HEENT: Atraumatic, normocephalic. PERRLA. Oral mucosa is moist. Face is very swollen, especially around the eyes. Neck: Supple. No JVD. No carotid bruits. Chest: Clear to auscultation with bibasilar crackles. Heart: Regular rate and rhythm. S1 and S2 normal. No gallop or murmur. Abdomen: Soft, nontender. No hepatosplenomegaly. Positive bowel sounds. Extremities: A +1 edema. No calf tenderness. Neurologic: Grossly intact. Cranial nerve exam 2 through 12 intact. Normal sensation. Normal refl exes. Normal muscle strength. Laboratory Data: Chest x-ray showed interval of moderate right lower effusion with some a telectasis. Assessment And Plan: This is a 65-year-old female with history of hypertension, diabetes, end-stage renal disease on hemodialysis, noncompliance, who presented after missing dialysis for three weeks. 1.End-stage renal disease, on hemodialysis. Missed dialysis for the last three weeks. We will need to proceed with hemodialysis at this point. Surgery consulted at request and she will be starting o n hemodialysis shortly here after she admitted to the floor. 2.Continue the patient on renal diet, reinforced the importance of compliance. 3.Hypertension. We will resume the patient's home medication after obtaining that from the pharmacy . 4.Diabetes the patient on insulin sliding scale as well as Accu-Chek. I do not see any d iabetic medication inpatient list. 5.Continue nausea for possible neuropathy. 6.Deep vein thrombosis prophylaxis with heparin 4000 units t.i.d.. JEFRY/CELESTINE Voice ID: [id number]
[2021-02-26 16:36] VITALS: TEMP 97.2
[2021-02-26] MEDS ORDERED: EPOETIN ALFA 10,000 UNIT/ML VIAL SQ ONE (20:00)
--- NOTE | 2021-02-26 23:11 | PN ---
Date of Progress Note: 02/26/2021 Chief Complaint: End-stage renal disease, on hemodialysis. History Of Present Illness: The patient is a 65-year-old woman with end-stage renal disease secondar y to diabetes mellitus and hypertension. The patient has congestive heart failure, history of cardio renal syndrome, cardiomyopathy with history of coronary artery disease, status post CABG, uncontrolle d diabetes. The patient was brought to the hospital by 911 for shortness of breath. She was found t o have volume overload and very high BNP. She received dialysis on Friday in the hospital. She wa s COVID positive and chest x-ray was done to check for pneumonia. The patient today was found to hav e hyperkalemia. She remains volume overloaded and she is undergoing dialysis with ultrafiltration an d the patient has chronic combined systolic and diastolic congestive heart failure. She is dialysis dependent and dialysis will be done today without difficulty. The patient obtained negative fluid ba daniella. Review of Systems: Denies fever or chills. Physical Examination: Lungs: Crackles bilaterally at bases. Heart: S1, S2. Abdomen: Soft, benign. Extremities: Edema. Laboratory Work: Hemoglobin 11, WBC is 4.8, platelet count 157,000. Chemistries show sodium 135, po tassium 5.7, chloride 102, CO2 of 24, BUN 30, creatinine 3.35, magnesium 1.7, albumin 2.2, calcium 8. 2, glucose 124 and 250. Chest x-ray hospital on February 24 showed mild interval enlarg ement and now moderate right pleural effusion and atelectasis. Impression And Plan: 1.End-stage renal disease. The patient will continue dialysis 3 times per week, next dialysis tomor row to obtain negative fluid balance to control fluid overload and provide management for congestive heart failure. 2.Hyperkalemia. Dialysis will be done with 2 potassium dialysates. Monitor potassium level. Thao nue low-potassium diet. 3.Anemia. Hemoglobin 11. . 4.Coronary artery disease, congestive heart failure with superimposed fluid overload. Continue p.o. fluid restriction and dialysis. 5.Diabetes mellitus. Continue insulin. EB/MODL Voice ID: [id number] Report ID: [id number]
== END 2021-02-26 16:48 | disposition home health service (06) | DRG 640 ==
LOC: SUPCPDRO 12:24 → ER 12:24 → ERHOLD 19:04 → 3RD-ICU 02-26 07:30
PROVIDERS: ADMIT Internal Medicine; ATTEND Hospitalist
PROC: 5A1D70Z Performance of Urinary Filtration, Intermittent, Less than 6 Hours Per Day (ICD-10-PCS; principal; 2021-02-24)
DX: E87.70 Fluid overload, unspecified (principal); N18.6 End stage renal disease; U07.1 COVID-19; J12.82 Pneumonia due to coronavirus disease 2019; I13.2 Hypertensive heart and chronic kidney disease with heart failure and with stage 5 chronic kidney disease, or end stage renal disease; I50.42 Chronic combined systolic (congestive) and diastolic (congestive) heart failure; E11.22 Type 2 diabetes mellitus with diabetic chronic kidney disease; E11.40 Type 2 diabetes mellitus with diabetic neuropathy, unspecified; F32.A Depression, unspecified; F17.200 Nicotine dependence, unspecified, uncomplicated; N25.0 Renal osteodystrophy; J44.9 Chronic obstructive pulmonary disease, unspecified; I25.10 Atherosclerotic heart disease of native coronary artery without angina pectoris; E87.5 Hyperkalemia; E78.5 Hyperlipidemia, unspecified; D64.9 Anemia, unspecified; Z91.15 Patient's noncompliance with renal dialysis; Z99.2 Dependence on renal dialysis; Z88.1 Allergy status to other antibiotic agents; Z88.5 Allergy status to narcotic agent; Z88.8 Allergy status to other drugs, medicaments and biological substances; Z95.0 Presence of cardiac pacemaker; Z79.82 Long term (current) use of aspirin; Z79.02 Long term (current) use of antithrombotics/antiplatelets; Z79.899 Other long term (current) drug therapy; Z90.710 Acquired absence of both cervix and uterus; Z85.42 Personal history of malignant neoplasm of other parts of uterus; Z90.49 Acquired absence of other specified parts of digestive tract; Z89.412 Acquired absence of left great toe; Z20.822 Contact with and (suspected) exposure to COVID-19
CPT/HCPCS: 36415; 71045; 80048; 80053; 80069; 80076; 82947; 83735; 83880; 84484; 85025; 85610; 90935; 93005; 94640; 96374; 96375; 99285; J1200; J2405; J3010; J3475; J7510; U0003

== ENCOUNTER 2021-03-25 07:12 | Inpatient (IN) | payer OTHER ==
--- OUTSIDE RECORDS SUMMARY | 2021-03-25 07:29 | XMS REPORT | Continuity of Care Document ---
:1955 Author Organization [facility] t Address [address] [place] [address] Care Team Providers Name Role Phone THA [...] Date Expiration Date S ource MEDICAID MOLINA [id number] 2011 00:00:00 [facility] [id number] 2010 MEDICAID 00:00:00 Problems Condition Condition Condition [...] 00 Center CAD CAD Disease Active Overview: [facility] St (coronary (coronary 20 S/p CABG- L ukes - artery artery 00:00: PRITCHETT-LAD, Medical disease) disease) 00 SVG-PDA,r Matthew ter amus,OM3 on 05/20/17 Atheroscle Atheroscle Disease Active Overview : [facility] St rosis of rosis of -[address] [facility] comanche comanche 00:00: Medical artery of artery of 00 Cent er extremity extremity with with ulceration ulceration Acute CHF Acute CHF Disease Active [facility] - [facility] Medical 00 Center COPD COPD Disease Active [facility] (chronic (chronic 05-14 [facility] - obstructiv obstructiv 00:00: Me dical e e 00 Center pulmonary pulmonary disease) disease) Controlled Controlled Disease Active C [facility] type 2 type 2 2 [facility] - diabetes diabetes 00:00: Medica l mellitus mellitus 00 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 disorder, disorder, with with long-term long-term current current use of use of insulin insulin Smoker Smoker Disease Active [facility] 2[facility]14 [facility] - 00:[facility]: Medical 00 Center Frequent Frequent Disease Active [facility] PVCs PVCs 05-12 [facility] - 00:00: Medical 00 [place] Chronic Chronic Diagnosis Active [facility] [...] d COPD d COPD Clinics type type long-term long-term Problem Active [facility] current current [facility] [...] 2019-03 Univ ers INGREDI ity of 00:00: [place] 00 [facility] VANCOMYC DRUG Active Med N/V 2019-03 Univers IN INGREDI ity of 00:00: [place] [facility] MORPHINE DRUG Active High Anaphylaxis 2019-03 Uni vers INGREDI ity of 00:00: [place] [facility] AMOXICIL DRUG Active Med Diarrhea 2019-03 Univer s KENZIE-POT ity of CLAVULAN 00:00: [place] ATE 00 [facility] NITROGLY DRUG Active High Anaphylaxis 2019-03 Uni vers CERIN IN ity of 5 % 00:00: [place] DEXTROSE [facility] TRAZODON DRUG Active Med N/V 2019-03 Univers E INGREDI ity of 00:00: [place] 00 [facility] Trazodon Drug Active Nausea And [facility] e Allergy Vomiting 05-12 [facility] - 00:00: [address] TRAZODON Allergy Active High N\\T\\V SLSL [...] in HCl Reaction [facility] Nitrogly Adverse Active vomiting [facility] cerin Reaction [facility] Morphine Adverse Active headache, [facility] Sulfate Reaction breathing [facility] Clindamy Adverse Active vomiting [facility] riley HCl Reaction [facility] Clin[facility] NO KNOWN Drug Active Univers ALLERGIE Class ity of [facility] Family History Family Member Diagnosis Comments Start Date Stop Date Source Natural father COPD [facility] Natural father Cancer [facility] Natural father Hypertension [facility] Natural mother No Known Problem [facility] Natural sister Asthma [facility] Natural sister COPD [facility] Social History Social Habit Start Date Stop Date Quantity Comments Source Sex Assigned At [facility] Cigarettes smoked 2019-12-31 2019-12-[address] [facility] - current (pack per 00:00:00 00:00:00 [facility] Center day) - Reported Cigarette 2019-12-31 2019-12-[address] [facility] - pack-years 00:00:00 00:00:00 [facility] Tobacco use and 2019-12-31 2019-12-[address] [facility] - exposure 00:00:00 00:00:00 [facility] Alcohol intake 2019-12-31 2019-12-[address] [facility] - 00:00:00 00:00:00 non-drinker of Medical Ce nter alcohol (finding) History of tobacco 2017-05-[address] [facility] - use 00:00:00 [facility] Smoking Status Start Date Stop Date Source Former smoker 2019-12-31 00:00:00 2019-12-31 00:00:[address] [facility] - [facility] Medications Ordered Filled Start Stop Current Ordering Indication Dosage Frequency Signature Comments Components Source Medication Medication Date Date Medication? Clinician (SIG) Name Name mupirocin 2019-03 Yes QD Apply [facility] (BACTROBAN) 0-03 topically Lay es - 2 % 10:49: daily. Medical ointment 00 [place] collagenase 2019-03 Yes QD Apply [facility] (SANTYL) 0-03 topically [facility] - 250 units/g 10:49: daily. Medi marilin ointment 00 [place] bumetanide 2019-03 Yes 2mg [id number] Take [address] (BUMEX) 2 0-03 [id number] by mouth 3 [facility] - MG tablet [...] 2 % 10:49: daily. Medical ointment 00 [place] collagenase 2019-03 Yes QD Apply [facility] (SANTYL) 0-03 topically [facility] - 250 units/g 10:49: daily. Medi marilin ointment 00 [place] bumetanide 2019-03 Yes 2mg [id number] Take [address] (BUMEX) 2 0-03 [id number] by mouth 3 [facility] - MG tablet [...] - MOUTH Memoria EVERYDAY l AT BEDTIME [facility] Isosorbide Isosorbide Yes Franki TAKE [address] [facility] Mononitrate Mononitrate Jas TABLET BY [facility] - ER ER MOUTH Memoria EVERY DAY l [facility] NIFEdipine NIFEdipine Yes Franki TAKE [address] [facility] ER ER Jas TABLET BY [facility] - MOUTH Memoria EVERY DAY l Outpati ent Clinics BuPROPion BuPROPion Yes Franki TAKE [address] HCl HCl Jas TABLET BY [facility] - MOUTH Memoria EVERY DAY l [facility] Acetaminoph Acetaminoph Yes Franki [...] [facility]ukes - MOUTH Memoria TWICE l DAILY. [facility] RIN[facility] ent MOUTH Clinics AFTER USE [...] (Ergocalcif Jas CAPSULE BY [facility] - berta) betra) MOUTH ONE Memoria TIME PER l WEEK [facility] Furosemide Furosemide Yes Franki [...] cm Heart rate 2020-01-01 08:41:00 60 /min [facility] Respiratory rate 2020-01-01 08:41:00 18 /min [facility] Oxygen saturation in 2020-01-01 08:41:00 100 /min [facility] Arterial blood by Medical Ce nter Pulse oximetry Systolic blood 2020-01-01 08:32:00 162 mm[Hg] [facility] Diastolic blood 2020-01-01 08:32:00 73 mm[Hg] [facility] Body temperature 2020-01-01 07:41:00 36.56 Deanne [facility] Body weight 2019-12-30 04:28:00 78.2 kg [facility] BMI 2019-12-30 04:28:00 27.00 kg/m2 [facility] Body height 2019-12-25 21:05:00 170.2 cm [facility] Procedures Procedure Date / Time Performed Performing Clinician [facility] e REPORT OF PROCEDURE - 2020-01-05 08:40:02 Provider, Default [facility] ENDOSCOPY SCAN [facility] RHYTHM STRIP - SCAN 2020-01-05 08:31:43 Provider, Default [facility] RHYTHM STRIP - SCAN 2020-01-05 08:31:42 Provider, Default [facility] RHYTHM STRIP - SCAN 2020-01-05 08:31:40 Provider, Default [facility] CARDIAC CATH REPORT - 2020-01-05 08:31:15 Provider, Default [facility] SCAN Scanning [facility] CARDIAC CATH REPORT - 2020-01-05 08:31:13 Provider, Default [facility] POCT-GLUCOSE METER 2020-01-01 06:33:00 [facility] W/PLT COUNT & AUTO 2020-01-01 05:37:00 [facility] 2020-01-01 05:37:00 [facility] PO[facility]UCOSE METER 2019-12-31 20:50:00 Pat Mohamud [facility] POCT-GLUCOSE METER 2019-12-31 18:00:00 [facility] POCT-GLUCOSE METER 2019-12-31 11:42:00 Cade, [facility] POCT-GLUCOSE METER 2019-12-31 06:29:00 [facility] CBC W/PLT COUNT & AUTO 2019-12-31 06:05:00 [facility] 2019-12-31 06:05:00 [facility] MAGNESIUM 2019-12-31 06:05:00 [facility] POCT-GLUCOSE METER 2019-12-30 20:13:00 [facility] POCT-GLUCOSE METER 2019-12-30 16:26:00 [facility] SURGICALLY OBTAINED 2019-12-30 13:59:46 Pat Mohamud [facility] - CULTURE + GRAM STAIN Medical Matthew ter ANAEROBIC CULTURE 2019-12-30 13:59:46 [facility] 2019-12-30 13:54:56 [facility] GRAM STAIN Medical Matthew ter ANAEROBIC CULTURE 2019-12-30 13:54:56 [facility] TISSUE EXAM 2019-12-30 13:38:00 [facility] I&D,BONE FOOT 2019-12-30 13:11:00 Tala Santacruz [facility] POCT-GLUCOSE METER 2019-12-30 11:39:00 Pat Mohamud [facility] ECG 12-LEAD 2019-12-30 10:53:36 Unknown, Hl7 Doctor [facility] POCT-GLUCOSE METER 2019-12-30 05:39:00 Pat Mohamud [facility] SARS-COV2/RT-PCR ([facility] & 2019-12-30 05:11:00 Pat Mohamud [facility] - REF LABS) [facility] CBC W/PLT COUNT & AUTO 2019-12-30 05:09:00 [place] [facility] S t [facility] DIFFERENTIAL [facility] METABOLIC 2019-12-30 05:09:00 [place] [facility] POCT-GLUCOSE METER 2019-12-29 21:09:00 [facility] POCT-GLUCOSE METER 2019-12-29 11:10:00 [facility] HEMODIALYSIS INPATIENT 2019-12-29 08:12:17 Brandie Khan [facility] POCT-GLUCOSE METER 2019-12-29 06:10:00 [facility] CBC W/PLT COUNT & AUTO 2019-12-29 05:50:00 [place] [facility] DIFFERENTIAL [facility] 2019-12-29 05:50:00 [place] [facility] POCT-GLUCOSE METER 2019-12-28 20:37:00 [facility] POCT-GLUCOSE METER 2019-12-28 17:38:00 [facility] POCT-GLUCOSE METER 2019-12-28 13:12:00 [facility] POCT-GLUCOSE METER 2019-12-28 05:43:00 Pat [facility]ud [facility] CBC W/PLT COUNT & AUTO 2019-12-28 04:41:00 [place] [facility] DIFFERENTIAL [facility] COMPREHENSIVE METABOLIC 2019-12-28 04:41:00 Lily Echavarria [facility] ABD AO & LOWER EXT 2019-12-28 02:30:00 Sakina Tamayo [facility] ANGIOS/ POSS PPI [facility] POCT-GLUCOSE METER 2019-12-27 20:32:00 Pat Mohamud [facility] MR LOWER EXTREMITY 2019-12-27 16:30:00 Lily Echavarria [facility] - WITHOUT IV CONTRAST LEFT Medical Center POCT-GLUCOSE METER 2019-12-27 14:06:00 [facility] WOUND CULTURE + GRAM 2019-12-27 12:02:[address] Annia Del[address] [facility] POCT-GLUCOSE METER 2019-12-27 06:44:00 Pat Mohamud [facility] POCT-GLUCOSE METER 2019-12-27 05:49:00 [facility] CBC W/PLT COUNT & AUTO 2019-12-27 05:05:00 Lily Echavarria [facility] S [facility] METABOLIC 2019-12-27 05:05:00 JerichoLily [facility] HEMODIALYSIS INPATIENT 2019-12-27 00:31:18 Brandie Khan [facility] POCT-GLUCOSE METER 2019-12-26 20:51:00 Pat Mohamud [facility] TRANSFUSION SERVICE 2019-12-26 18:02:44 Rocco Sepulveda [facility] REPORT - SCAN Scanning [facility] POCT-GLUCOSE METER 2019-12-26 16:42:00 Pat [facility]ud [facility] CTA AAA AND RUNOFF 2019-12-26 15:27:00 Sakina Tamayo [facility] POCT-GLUCOSE METER 2019-12-26 11:59:00 Pat Mohamud [facility] POCT-GLUCOSE METER 2019-12-26 06:09:00 Cade, Salman [facility] CBC W/PLT COUNT & AUTO 2019-12-26 04:36:00 JerichoLily [facility] 2019-12-26 04:36:00 [place] [facility] PREPARE LEUKO-REDUCED RBC 2019-12-25 23:54:[address] [facility] POCT-GLUCOSE METER 2019-12-25 20:51:00 Pat Mohamud [facility] TRANSFUSION SERVICE 2019-12-25 18:04:44 Rocco Sepulveda [facility] REPORT - SCAN Scanning [facility] POCT-GLUCOSE METER 2019-12-25 17:01:00 Pat Mohamud [facility] POCT-GLUCOSE METER 2019-12-25 11:25:00 [facility] W/PLT COUNT & AUTO 2019-12-25 05:59:00 Lily Echavarria [facility] 2019-12-25 05:59:00 [place] [facility] POCT-GLUCOSE METER 2019-12-25 05:58:00 [facility] TRANSFUSE LEUKO-REDUCED 2019-12-24 19:06:17 [facility] RED BLOOD CELLS [facility] POCT-GLUCOSE METER 2019-12-24 16:15:00 Pat Mohamud [facility] ABORH, MANUAL 2019-12-24 08:25:00 Jovita Griffith [facility] POCT-GLUCOSE METER 2019-12-24 06:11:00 [facility] TYPE AND SCREEN, 2019-12-24 06:08:00 Brandie Khan [facility] es - AUTOMATED [facility] CBC W/PLT COUNT & AUTO 2019-12-24 05:51:00 JerichoLily [facility] 2019-12-24 05:51:00 [place] [facility] POCT-GLUCOSE METER 2019-12-23 21:23:00 Pat Mohamud [facility] POCT-GLUCOSE METER 2019-12-23 16:42:00 Pat Mohamud [facility] MR LOWER EXTREMITY JOINT 2019-12-23 15:34:00 Tala Santacruz [facility] ONLY WITHOUT IV CONTRAST [facility] LEFT MR BRAIN WITHOUT IV 2019-12-23 15:34:[address] [facility] L uk - CONTRAST [facility] POCT-GLUCOSE METER 2019-12-23 11:16:00 Pat Mohamud [facility] ARTERIAL DOPPLER LEGS 2019-12-23 09:38:00 Tala Santacruz [facility] BILATERAL [facility] AMMONIA 2019-12-23 04:05:00 Mariela Carrasco [facility] CBC W/PLT COUNT & AUTO 2019-12-23 04:00:00 [place] [facility] S [facility] COMPREHENSIVE METABOLIC 2019-12-23 04:00:00 [place] [facility] SARS-COV2/RT-PCR ([facility] & 2019-12-23 03:59:00 Pat Mhoamud [facility] POCT-GLUCOSE METER 2019-12-22 20:34:00 [facility] POCT-GLUCOSE METER 2019-12-22 16:43:00 Pat Mohamud [facility] POCT-GLUCOSE METER 2019-12-22 11:31:00 Pat Mohamud [facility] POCT-GLUCOSE METER 2019-12-22 06:30:00 [facility] CBC W/PLT COUNT & AUTO 2019-12-22 05:14:00 [place] [facility] S [facility] COMPREHENSIVE METABOLIC 2019-12-22 05:14:00 [place] [facility] POCT-GLUCOSE METER 2019-12-21 20:26:00 Cade, Salman [facility] POCT-GLUCOSE METER 2019-12-21 17:22:00 [facility]ade [facility] POCT-GLUCOSE METER 2019-12-21 12:35:00 Cade [facility] POCT-GLUCOSE METER 2019-12-21 07:20:00 Cade [facility] POCT-GLUCOSE METER 2019-12-21 05:52:00 [facility] C-REACTIVE PROTEIN 2019-12-21 04:39:00 Annia Delgado [facility] CBC W/PLT COUNT & AUTO 2019-12-21 04:39:00 [facility] COMPREHENSIVE METABOLIC 2019-12-21 04:39:00 [facility] US ABDOMEN COMPLETE 2019-12-20 21:17:00 Sakina Chen [facility] POCT-GLUCOSE METER 2019-12-20 20:23:00 [facility]ade [facility] POCT-GLUCOSE METER 2019-12-20 17:31:[address] [facility] [address] BRAIN WITHOUT IV 2019-12-20 16:04:00 [facility] AMMONIA 2019-12-20 14:41:00 [facility] BLOOD GAS, ARTERIAL 2019-12-20 14:28:00 [facility] X[facility] FOOT 2 VIEWS RIGHT 2019-12-20 11:55:00 Annia Delgado [facility] POCT-GLUCOSE METER 2019-12-20 11:28:00 [facility]ade [facility] POCT-GLUCOSE METER 2019-12-20 06:20:00 [facility] OCCULT BLOOD, STOOL 2019-12-20 06:19:00 Sakina Chen [facility] IRON, TIBC, % SAT. 2019-12-20 05:06:00 AprilSakina [facility] (WITHOUT FERRITIN) [facility] VITAMIN B12 AND FOLATE 2019-12-20 05:06:00 April Sakina Carrillo [facility] RETICULOCYTE COUNT 2019-12-20 05:06:00 [facility] Carrillo [facility] HAPTOGLOBIN 2019-12-20 05:06:00 [facility] Carrillo [facility] TSH/FREE T4 IF INDICATED 2019-12-20 05:06:00 AprilSakinaba l [facility] FERRITIN 2019-12-20 05:06:00 April [place] Carrillo [facility] ANTI-NUCLEAR ANTIBODY 2019-12-20 05:06:[address] [facility] (ROGER) [facility] KAPPA / LAMBDA LIGHT 2019-12-20 05:06:00 Sakina Chen [facility] PROTEIN ELECTROPHORESIS, 2019-12-20 05:06:00 Sakina Chenba [facility] PERIPHERAL BLOOD SMEAR - 2019-12-20 05:06:00 Sakina Chenba l [facility] - PATHOLOGIST REVIEW [facility] CBC W/PLT COUNT & AUTO 2019-12-20 05:06:00 Marcial Chapa [facility] COMPREHENSIVE METABOLIC 2019-12-20 05:06:00 Marcial Chapa [facility] T4, FREE 2019-12-20 05:06:00 April [place] Carrillo [facility] ROGER TITER AND PATTERN 2019-12-20 05:06:[address] [facility] PT/APTT 2019-12-20 05:06:00 April [place] Carrillo [facility] FIBRINOGEN 2019-12-20 05:06:00 [facility] D-DIMER 2019-12-20 05:06:00 April [place] Carrillo [facility] POCT-GLUCOSE METER 2019-12-19 20:35:00 CadePat diaz [facility] POCT-GLUCOSE METER 2019-12-19 16:06:00 CadeEvensruel [facility] HEMODIALYSIS INPATIENT 2019-12-19 16:02:09 Sharri Fernando [facility] CBC W/PLT COUNT & AUTO 2019-12-19 05:35:00 Marcial Chapa [facility] BASIC METABOLIC PANEL (7) 2019-12-19 05:35:00 Marcial Chapa [facility] LACTATE DEHYDROGENASE 2019-12-19 05:35:[address] [facility] (LDH) [facility] POCT-GLUCOSE METER 2019-12-19 05:24:00 Cade Pat [facility] POCT-GLUCOSE METER 2019-12-18 21:35:00 Cade Pat [facility] POCT-GLUCOSE METER 2019-12-18 16:05:00 Cade [facility] POCT-GLUCOSE METER 2019-12-18 07:45:00 Cade [facility] POCT-GLUCOSE METER 2019-12-18 06:14:00 Cade [facility] POCT-GLUCOSE METER 2019-12-17 21:44:00 Cade [facility] POCT-GLUCOSE METER 2019-12-17 17:52:00 Cade [facility] POCT-GLUCOSE METER 2019-12-17 12:22:00 [facility] HEMODIALYSIS INPATIENT 2019-12-17 10:33:08 Brandie Khan [facility] POCT-GLUCOSE METER 2019-12-17 06:18:00 [facility] CBC W/PLT COUNT & AUTO 2019-12-17 04:14:00 Marcial Chapa [facility] COMPREHENSIVE METABOLIC 2019-12-17 04:13:00 Marcial Chapa [facility] POCT-GLUCOSE METER 2019-12-16 20:55:00 Pat Mohamud [facility] POCT-GLUCOSE METER 2019-12-16 18:24:00 [facility] HEPATITIS B SURFACE 2019-12-16 16:02:00 Aldulacey [facility] ANTIBODY [facility] HEPATITIS B SURFACE 2019-12-16 16:02:00 Aldulacey [facility] ANTIGEN [facility] HEPATITIS C ANTIBODY 2019-12-16 16:02:00 [facility] HEPATITIS B CORE 2019-12-16 16:02:00 Bill [facility] es - ANTIBODY, TOTAL [facility] POCT-GLUCOSE METER 2019-12-16 14:47:00 Pat Mohamud [facility] IR TUNNELED CATHETER 2019-12-16 14:26:00 Sharri Fernando [facility] INSERTION [facility] HEMODIALYSIS INPATIENT 2019-12-16 12:37:39 Bill [facility] POCT-GLUCOSE METER 2019-12-16 11:01:00 Pat Mohamud [facility] XR CHEST 1 VIEW PORTABLE 2019-12-16 05:55:00 Marcial Chapa ra [facility] - / BEDSIDE [facility] POCT-GLUCOSE METER 2019-12-16 05:51:00 Pat Mohamud [facility] CBC W/PLT COUNT & AUTO 2019-12-16 04:08:00 Marcial Chapa [facility] BASIC METABOLIC PANEL (7) 2019-12-16 04:08:00 Marcial Chapa [facility] PROTHROMBIN TIME/INR 2019-12-16 04:08:[address] [facility] SARS-COV2/RT-PCR ([facility] & 2019-12-16 01:45:00 Cade, Salman Siraj [facility] Plan of Care Planned Activity Planned Date Details Comments Source Future Scheduled 2020-12-[address] [facility] Test 00:00[facility]00 examination Medical Center (regime/therapy) [code = 361106669] Future Scheduled 2020-12-[address] [facility] - Test 00:00:00 examination [facility] (regime/therapy) [code = 117227734] Future Scheduled 2020-12-[address] [facility] - Test 00:00:00 [facility] colon (procedure) [code = 826851251] Future Scheduled 2020-12-[address] [facility] - Test 00:00:00 malignant [facility] colon (procedure) [code = 439502384] Future Scheduled 2020-11-29 INFLUENZA VACCINE (#1) [facility] - Test 00:00:00 [code = INFLUENZA Medical Ce nter VACCINE (#1)] Future Scheduled 2020-11-29 INFLUENZA VACCINE (#1) [facility] - Test 00:00:00 [code = INFLUENZA Medical Ce nter VACCINE (#1)] Future Scheduled 2020-03-[address] [facility] - Test 00:00:00 (12+) [code = [facility] DEPRESSION SCREENING (12+)] Future Scheduled [...] - Test 00:00:00 (1 of 1 - [facility] [id number] [id number]) [code = PNEUMOCOCCAL 65+ YRS (1 of 1 - [id number] PCV13)] Future Scheduled 2020 PNEUMOCOCCAL 65+ YRS [facility] - Test 00:00:00 (1 of 1 - [facility] [id number] [id number]) [code = PNEUMOCOCCAL 65+ YRS (1 of 1 - [id number] PCV13)] Future Scheduled 2017-11-[address] [facility] - Test 00:00:00 measurement Medical Center (procedure) [code = 65502608] Future Scheduled 2017-11-[address] [facility] - Test 00:00:00 measurement Medical Center (procedure) [code = [id number]] Future Scheduled 2005 SHINGLES VACCINES ([address] [facility] - Test 00:00:00 of 2) [code = SHINGLES Medic al Center VACCINES (1 of 2)] Future Scheduled 2005 SHINGLES VACCINES ([address] [facility] 00:00:00 of 2) [code = [facility]INGLES [facility] al Center VACCINES (1 of 2)] Future Scheduled [address] [facility]00 (procedure) [code = [facility] [id number]] Future Scheduled [address] [facility]:00 (procedure) [code = [facility] Center 58692383] Future Scheduled [address] [facility] malignant [facility] cervix (procedure) [code = 066207855] Future Scheduled [address] [facility] cervix (procedure) [code = 094786832] Future Scheduled 1974 DTAP/TDAP/TD VACCINES [facility] [...] 00:00:00 protein (procedure) [facility] Center [code = 302540219] Future Scheduled [address]IC EYE EXAM [facility] 00:00:00 [code = DIABETIC EYE [facility] EXAM] Future Scheduled 1965 Urine screening for [facility] 00:00:00 protein (procedure) [facility] Center [code = 397134322] Future Scheduled [address] [facility]00 [facility] breast (procedure) [code = 576491873] Future Scheduled [address] [facility] 00:[facility]00 [facility] breast (procedure) [code = 781004466] Encounters Start End Encounter Admission Attending Care Care Encounter Source Date/Time Date/Time Type Type Clinicians Facility Department ID 2019-12-16 Inpatient UR PAT MOHAMUD [facility] Nephrology [id number] [facility] 00:14:00 2020-03-28 2020-03-29 Emergency Clay Fine [facility] [id number] 15:50:00 20:31:00 Maureen Terrazas [id number] [place] [id number] [place] [id number] 2020-03-28 2020-03-28 Emergency X BABATUNDE MNDEREK ERT [id number] [facility] 15:50:00 15:50:00 CLAY [facility] 2019-12-16 2020-01-01 Hospital UR Pat Mohamud [facility] [id number] 00:14[facility] 10:00:00 Encounter Lisa [facility] 2019-12-30 2019-12-[address] [facility] [id number] [facility] 13:11:00 14:14:00 Event Jamin Kearns [facility] 2019-12-30 2019-12-[address] [facility] [id number] 12:30:00 13:19:00 [facility] 2019-12-28 2019-12-28 Surgery Belkis, [facility] [id number] 12:00:00 12:54:00 Sakina Higgins [facility] 2019-12-17 2019-12-17 Travel [facility] [id number] [facility] 00:[facility]:00 [facility] 2019-12-16 2019-12-16 Orders Monica, [facility] [id number] 00:00:00 00:00:00 Only [facility] 2018-11-17 2018-11-17 [facility] [id number] 11:30:00 11:30:00 [facility] 2018-10-06 2018-10-06 [facility] [id number] 16:14:00 16:14:00 [facility] 2018-09-28 2018-09-28 [facility] [id number] 10:30:00 10:30:00 [facility] 2017-09-22 2017-09-22 Outpatient DEMETRA OLAYINKA [facility] [id number] [facility] 00:00:00 00:00:00 BIJI Results Test Description Test Time Test Comments Results Result Comments Source ANAEROBIC CULTURE 2020-01-04 10:26:00 Test Item Value Reference Range Interpretation Comme nts CULTURE (BEAKER) (test code = 1095) No anaerobes isolated Tissue [id number] 10:21:00 Test Item Value Reference Range Interpretation Comments Case Report (test code Surgical Pathology = 104) Report Case: [id number] Authorizing Provider: Tala Santacruz DPM Collected: 12/30/2019 01:38 PM Ordering Location: [address] Med/Surg Received: 12/31/2019 06:52 AM Pathologist: Jovita Griffith MD Specimens: A) - Soft Tissue, Other, left 5th proximal phalanx B) - Metatarsal, Left, left 5th metatarsal DIAGNOSIS (test code = [id number] 3220) FuZzEwMzNcZnRuYmpcdWMx CAyhjxHwOHrvn9EwR2QaHw AwMFxhbnNpXGRlZmxhbmcx IXHeWIG5evSzVBUkNQnaRL JfRWaaDk5khLXtpPvhQfFf EJPpk9qmsyBRclpsxJw0y1 usRDGwLaX7wYYqQTxzN6ek jnCjwBWcJQRlRXr2fL46RZ JfnR1klAXkGDizntQtWbX0 KQnxEJPtOxZ0CRCcoROfIH FqF0odUVCpMBfyUXQqFKfi xLImCBN6iBgkz0Y1gIIonQ MlnAscIjGfSbXvSIENo4Fm YTm2pEojF4HkYWIaDcF2gJ QgUGFyYWdyYXBoIEZvbnQ7 gP65LLxsbhW1eEEfc3Qmc0 3vw711yK8hjIBvYCH9EKAa YFLicOFlQPSjOJX6RQZymT NeY5a2HwSskDQiA9H3SjOh xPKzP6I9XyFxuHRnO4N6Wk BlrVHyJMSovXDiCg3mpWHf jKUtwt1dpt59SLY4y8VcnC jwLDT9TAX5RfGmWm4ezNQz XGVwGO3aCqLwpSUrBCHoic 11vMnvLGchkyMpfM7gVsKj TLUybQYlMDDhKP9giSKgTI RiwQ7bujciKSTxPsEjsmnr EWGvlCgccyZqPd4qvSgfSM T2MCeaN2yrrB3vSoS9YDwj Z3smzD2hNDt7BSorpFV5YO TysF1yPY1owfluz8pzMlAi SV0vrdjro8piHsAlTC3muo z1h2uiJuQtAT5atobxh7je NzIwXGhlYWRlcnkwXGZvb3 SqcrdtVKVre1EeS2MllOte L35wiFrhH11rXIBddXluaH 7vsIonzZ3dJqHpAaDbVZlr bFxwbGFpblxmMVxmczIwXG mqjnhgMZJyENtqO6pbEeYf UIXadSjcYGlwb4PuWGDiGA UlLhKgBT5fRs2NIRqeJMVP RAALHAGVMFLEEy4WXJ5QOR LOBDKAIV8GDNHJHK8TB9x8 VCTsefLjYYZeUVPGGZ2pU3 jAOVUSHjGHPzyKCM2YTQEX UlRJTEFHRSBXSVRIIFNVUl KGUG4ABB9PHUFZXNBEYXZQ RCBDSFJPTklDIElORkxBTU 1BVElPTlxwYXJccGFyIEIu IEJPTkUsIExFRlQgRklGVE ggTUVUQVRBUlNBTCwgQklP UFNZOlxwYXIgICAgLSBBQ1 PHACOWP4POP26RJLdXUAlT IFxwYXIgICAgLSBTRVBBUk HWSNCEYmSYACVYEGKmE6Qx QgbRNz1IH18AXFRVWENULH TZW0AGFPCAYWOLNTVZL9FG E7WcXT0VN0KDQ7vRRQLNQS BHUkFOVUxBVElPTiBUSVNT CLZnNb0KQFLQMM6FUSRvpb 58CHT9HdXmg6E1MET0JLUz WQZmz2ffQDRczTTtAxPqDn NcZnRuYmpcdWMxXGRlZmYw s6qsu632iEOcp8vkQXJaTb B1zMCcPHHngCSwR824AMQw NXdtn3qdq8BrWDXuhYVcw6 Z1HVVMkupqjKv2vXztN24o p6E5KyfyN3zwZGYcGFWxR2 QlEJ7zNWVuOvd8OEZ0WBB6 SPBjBHVoQ1WgMH6dGRQvwJ FkRQr2g9ranIejEHVkAWS0 x7qvZHxfouTdSK3vzy8faO t0p6fmauKwHCCpQMZfnETT PDNfQ4CmhVteQg1vgPc0vS ojSwqwZMY9Pio0YV1xxq57 skj4xEtnVCXidkqlWtK2WR bvKATadzzvUPn6KJoyOYBe sGJ5HSGlpVMgX9HjPTHdLW 1yknm8XGV3IWapXIInLvL0 NDBcaGVhZGVyeTcyMFxmb2 24KJC9BwSsTG7uB1Eqv3D7 nX5doKGiFVJsyHHqAoYgLM Mbpa4phYQdBEaeq5ZcUFA3 rdO5hVOlwFVmIIRhJpI2NK jgWZ0pmz19DZKaFWI1nt3h bGNccGdicmRyaGVhZFxwZ2 ZyQWRet385TFQoV0BnRFEj i3T0csAkCrNuDGMiuUB1um X4QVQpWY5yhiysc3cnOIfs LIosDVTywnA3dvQ7OJQpiL MkK0BvqQ4vLPJfTV5hbieg f3pxHOC0MIszZSUuLPJ1Ji KyYXJod0Ohbjy7CpIan7Ww aPZaMLxdV67zg508GURjco ThN6bonJGcqpjydOBevcam SWikreC7DUFeSApmonisPN FeBDevA6ggEqRiFDZqkKok GYgob5FuLLBkJAMfYxTgzM BtPOXsJdl3GMHfrVMlLEQu WkLtD9miqodgYoTAOCYnk6 pbG4tqvOGBlNDuQ0ZnFRvv dcNsCZsbITkeCDG5BWT4Wn 03TtE0HZLpfk45 CPT Code(s) (test code v8yvqYIxFCYiqOEvXlMoKJ = 3357) YeKMPgq4maZTZbvXSuUmLz MzNcZnRuYmpcdWMxXGRlZm Dwx8xgk855vHYyl8rrKQZl PmW7qOXaNHXgyNImN195x6 qvc0jwrsMztYG0HVLpIIE8 AYlncjWjggJ6ULifjBGgKo L3PWdqaxMeUDnjetQzoqNn Dhf9RVKtB724HAT5nAczk2 jzFEI0ATYdZVWpWmSrQm3e jMVuC721NKNoJLAVIJNnyY w6CIFjdkVjnnQesHTUh842 E523g8jdFDYrzjFiwHaMid dkc0wdQ852QJIufEOoizGj OkJhVILnqYCexBM3UTDvXN 5owzjpQgDlEP8higwkUiZj UR3pwqq9WiZaQD1riygtEt CePMziFCCoesnhCFVaq9Lg tyozGY8zP4Etd9T9sE6fzU BfRDGlnGEoDxSfPRXxuy4x qNRnMKiin5HtKSK1ohY4lS FpvHMxOYErNR59Ngszp1Gs OvctHQH5BECgjnKqb3Zds4 sdRhAwwlHiO7lrJ0RmHJUg CGHvJJOdWoKmwdDrk8Jey7 QdnVWtyLx2p2gtFZYjZSLc lWoel5zbUKT4AZKfK8I5mU Jqx1esMGqsCPPatWR1lseb FKycMGYjmrH1bcluUYvlSH WgpGP8okceNQudYQOkMsJ3 txldMQxmSWTqEPO1ZVzsq6 40EEK0YQlqQbtwXYvcCDWm bmNvbnRccGduZGVjXHBsYW luXHBsYWluXGYwXGZzMjRc mLwojNsfcS4iFnBaCwMuKX phUQ7hBXUpR7ancRYvSAXc ULToR1yoWjGifM1tbLhqNX fskgEeAD0RI0N0WMNmnwN6 BOYoQqG2ViwxFNFoYBjtTW EgeDJccGFyfQ== CLINICAL HISTORY (test t1uesVJaBMOvoTTsOhBiHN code = 3356) LzWHGdh9epXDWvkNUkQyVe MzNcZnRuYmpcdWMxXGRlZm Udv9tdn695fTRtf7pyZZSc DeJ1tAKcJPWxgOKqA805e0 szb9zydcKkaQK4XMUjKYN7 ESbgbfCmmhA9QHdnjKQqQb L3NKwcbwSeXHlvhgBpunFf Eaj5KVEcG761PXA0oXhcu9 qcSZI3WGMbKINoYnMqRw6v fIHrD994OKRcUZAVTYUjhV b8CUEfanSybfBxvYBQe565 O269q8okPIXadmPewGcPlk kud9ufO127CYIqvAJcpfEy NrCwIXVzaJQzjHC1VADhXR 8pcmucVhOdJD0jjyalKuEl VC7nowu5GgDhPA2qbcrvVl McNQolPTGjvjwwCSBfg8Me bnixES5aO7Mrv3R1hY0iuM DhKFBhyQExSjIxGOAaus2g hQSdOPocm6QuREB2jzZ6rZ YjvAYwOMXbAZ40Sniwp7Vw HckdFBA2ZUJsgrBys2Cqx3 urFdGedvOlU1eyC2ZkCUDq GOKuUFPeRzNhhtYhe6Itl2 DikZLgaWk0f5ssNZEsNDDs cQwmi7wkQLW6MCKaP7F1gT Gxx8rxRPkfLCRebVM9pxyk MKfdUTEvhwY5aeqkOAyzSV GgeAA9suomZFlgQJAdCyL6 xxocAStgPWFmCXY0IMtob0 60JWX7YKuiCppfMMufXQKo bmNvbnRccGduZGVjXHBsYW luXHBsYWluXGYwXGZzMjRc qZathAvinW3uOpQjPqIdYI zqIU4dZNCcR3qswFYaBXBv CWPpL7trLdHyzO5kjZyaVW jyekAnUU4nlSRqeFsuvPi0 nUTfh7DpoCBheIA2kYmkfH B9QXGbdoSufUcwkPcsASIj r7HsOnggBLWyoqGmRQJqIW RccGFyfQ== SPECIMEN SOURCE (test t7ipoQLcGCFlzOFlHnCrZD code = 3377) HqEXBdg2xyHEAbvQGhPvGp MzNcZnRuYmpcdWMxXGRlZm Kwd8sli014eTUvo7oeEGEq YdT3jCOyJURzxHLcF787l7 are6bybyZceCN3MHJwVUE0 JVqsysQzuzL3IKvtyPGeDz D3CCpsooEoNJxxvsEjqdRg Ikn2FQZrW133LOR1hKmnn5 qjQBG8YUMzQDEdIhOkOu1c vDWuZ023ZABcCMTEOJSyxB l9NMPttoKdkmFnyPKXm938 Y309g7lqCCZoqzPvaUhErm ogy3nbQ495HYUeiSMaseIk VcDeZJBbvEMmaEB9LKXrFP 6nybnxErOpBT8xdjgsLdKw EN9mejj7AdYpRX3edhxbQq VhJEatOUAvhpxoXBGmy6Ii rbeiRX2rK2Blm0P3iV8wqN SaNXRwbBCvHtSbUGMrpm4e iJXaSZuke8JqNMJ7bhB2oS ZmzXFgSALpLM50Hncxa1Tp PqspOJB9AUZkvyVgy8Dii6 tkOyTspvXaO3ehZ0UgSWMq AGPgLOVtYtRcbuCxr1Imn9 GzeXKdzCr6w6aqMODmAQIv mHnsa5cjLAD0DKQbJ5B7cC Bmv0zxPZglORRraSE2iiom CGmxXOGjgrM2ggypJJgiON ReuIA6slwfDBfzXVEpJmS4 mlxmEQohWICfHCZ9AVgaa8 30JDE6KBjzEvztOHvnGXVm bmNvbnRccGduZGVjXHBsYW luXHBsYWluXGYwXGZzMjRc xHwyqWuhmL9rUlAzVrBrKF vfDA6zDJXxA7aefODaNINn MXSjE2dnIvZfxV3xmEryKP xmczIwIEEuIExlZnQgNXRo FSOlr6dnhXMaAAFfKUqgvm ipGNMkFYjjOwJrJQUaHZ5t fTE3XIKjMOfuWVKdml0= GROSS DESCRIPTION (test l4ftmJGuLSXpgVBtTfEnLW code = 3366) JyHVVfh8hvQNOquGLlJoTb MzNcZnRuYmpcdWMxXGRlZm Ldi5smz403mQSxr9fqZXBy FrI3jVBnGXAkdRZeO965TN PhJBaiz9kig3RcKYDpcTRz s6Y1BIIJgsdrtJe9wPssO4 2mw3O1UtovG5yvYKZnYQMi Y3HaYX0tGIIcAxw4AWO7DX V3NESlYQSeG0PhZM4qBTHl kBRkDTy6r0isbPlzNLQmBR E0y1rrUTteihDfIG1qfv8x cZm2x8jxluJvOXWvPTBmmY EEOZTxF4IdtPurTw1dfWu0 kLksNjehVRV9Kdg2QB5box 89ets6xGgbUDZszbirYfQ2 RTvaWVQntftgIEc7OTxpQF JnbDcyMFxtYXJncjcyMFxt YXJndDcyMFxtYXJnYjcyMF uqUKUvYFO2QVjac774PZH6 HGflh7vdh2jatNZnOqt6ZC YmLfOtEnsxYDzvx3Xop6sq GHLcwv1wEML1ySMlwJtcb9 V9nSNqLDUgpOMkvzTrMNKo YeQ6TInjRS4lus98ZKZdHZ M4fs7acLElcNtrrtHgzQVh ZFxpW0CwPSVar390TWVmD4 EaQVUzt2N7ogNfEwThUMBr wOX8wfF1CYKgPMz1eTCcda T7zxUvaVEjW0obfN97PzWm uRQpL3CdeP16VeYcoPGcO0 BuaA45KjKxsLDbW3RkhK26 MeTjjNPyHEIvjHHcOj1taB CtjCPtj6VglQJoJQehA47f c305UWSdsqCkS2aviQVnsr yrfPVslojwMSdybpW7YEDs XHBsYWluXGYwXGZzMjBcbG FuZzEwMzNcaGljaFxmMFxk YqFbKLOeZRsjU5fnLoHgCr OaPBREmGNtzL2mjmNQCZsz IGAlV5KbsuPlIIifERIazA P7uAKoMHhtAdTiJNGun1p1 pEC7rGIkiNR7lNTlePjpNU 8yzXHeFR9xHJ6sNJdiJEsw ikMgs9QtVF86pFWzhqPvpk QgZGVzaWduYXRlZCBhcyAi t66tmNV7rSXdgVPjLY41hD KlJqghV20vi6vzjDZog3Fd o0xrjHHagLFztW81TAXcwl PdVxVcS39sfnYlPC3dMRO1 cmluZyAwLjcgeCAwLjMgeC PlKyPfC21zJYWwBSYsoARt fO5fihXzzrIsuFDwnHJ5DG RtQV86eQVedFzggL95okEM YDEtwdCpgN52pfFeDRHjtP Apz0l5aWpeoe2gbENgQVBs icPVyHDwtL5ztuYHUUtsYX LaH8UqskKoUZscLHEnjTW2 iFCgICojFeMsAXZcm4p4kK T2eHRaxSN0dGNezIzxNU6e jIKjOB2vRD0wSIvkRJngjg Roq7NtEI19iHHmntEkbwHr ZGVzaWduYXRlZCBhcyAibW D7XMYpbuSjfLLmGNL5Mnqh X54os2wzpMUpd8JpBt94yx DfKWYpGzBbv68wrDnxe0Bl TKDpZRHko59wRWIcYFxaCM 11mfWcVXFdyAEmbduoSq7g ROyqAR60JIdcBU12FZVgUI wqMIYgQ6JfD4T9XE1ccZum IHNwZWNpbWVuIGlzIGVudG zfPEy0KKbklDNtjnueVNdf czIwXGxhbmcxMDMzXGhpY2 eiXvDfOVLspXkwESuqv6Wh LMRbDIVfNaDmUvCvWT5fMF oszG8kQQUiPQjzq96khJFc e12vGMNbGFwkBSNgHPHqGi BcbGFuZzEwMzNcaGljaFxm SIhnUnOrNKDwWBgsE0nrGr BcZnMyMCAgTUcvZXdccGFy fQ== MICROSCOPIC DESCRIPTION p1ejzMNjIPOgqMKkFsEkCN (test code = 3371) LbFKPag8plLNLtwPBwQyQa MzNcZnRuYmpcdWMxXGRlZm Dmb2tom288gZOvd1boINVr HlP0wQUqOPMguXAnA211g4 hff8aitfQejRC8CGYzYGB2 SPjjrsPcsbH0XDlzmALtDh C7RQzxaeFeKZhqgeXtelAz Dcr1OGItU998BFY5yStul5 fuEGE7LIEfNNCbXyBiAx5n mVYfS775HYQiVPVDWEXziC p7BTXtzjQfqfPzuFJWc544 C589i2ygQIJnxpMrvKeFrf yef8dtD857DDTklHJnmuNg LvGgJWMqiZBxvDX7ESNyFT 1qrzsxXkVnQT7ktvzzWxWa QN0mghw4JcIvTK6qtmrmDx HpZJhqPSHvnutbMTHwt7Pm dduaBG2oY8Apx8U8iD2gkU RhIHDzuCLoQgKpOZRrit5r mJLfUElyt5EaAKC2brR6dZ VnnMKzDJViMP29Zccmo8Ie IcgfNID2SQDhrmVax3Xpw2 kuPoKmdaQtQ8haD0IzUJNm KMYkGAIrYuPdlqHlq1Xba7 PsnYBrmDs4b6yeHUTzRLNd aGevd9tpHNA6SKJbA1Y6pO Vjs2syFVszTAYffPV8ztil GTywKRDzjzR4vlpyYDjhJO OblLO7fllzNRwqOZLpWqS7 ibxeBIvaRZBuLOD2UPsbl0 35LXW8VXpqLuyuWJapZZXj bmNvbnRccGduZGVjXHBsYW luXHBsYWluXGYwXGZzMjRc wVgxjAyvkM2aWgGlMjGlVP fiCZ6kRZTlF3hbsFDlYAIf MPGoR3gzKsAtqF6sqShaZX myawVrIYIsSz9uLOVnJs3m bWVkLlxwYXJ9 Gross assessment was [facility] performed at (test code [facility], Department = 2777) of Pathology, [address] [place] [id number], Technical component was [facility] performed at (test code [facility], = 2778) Department of Pathology, [address] [place] [id number], Professional component [facility] was performed at ([facility], Department code = 2779) of Pathology, [address] [place] [id number], [facility] [id number] 10:21:00 Test Item Value Reference Range Interpretation Comments Case Report (test code Surgical Pathology = 104) Report Case: [id number] Authorizing Provider: Tala Santacruz DPM Collected: 12/30/2019 01:38 PM Ordering Location: [address] Med/Surg Received: 12/31/2019 06:52 AM Pathologist: Jovita Griffith MD Specimens: A) - Soft Tissue, Other, left 5th proximal phalanx B) - Metatarsal, Left, left 5th metatarsal DIAGNOSIS (test code = [id number] 3220) FuZzEwMzNcZnRuYmpcdWMx ALszurIbVEmfk3UkW4MmGs AwMFxhbnNpXGRlZmxhbmcx KOUwHQB8nyYmPBTsGSdeBZ VeKCfnYf1oeUWztMcjNdRv CHThd4irdaIVgyjtoEw9o3 jtTRPjNrD6dQSlCIzuB5eb ysMujFJmRGDrBBt6lK40CX ZvxM3qtONtTNiulzZwQzT4 FOpsXKZzJoI6IHWoyGCzCP TbL9ruQNFpUNkcIFTiPGhg pHAdTIP9vDiqg8V5uXDutQ UpaRulJzUmUiFkRROSx9Fs NXp7eEpfD7PzXUNmMnQ4fA QgUGFyYWdyYXBoIEZvbnQ7 jD80BUpsmtN9mGTrk8Krr5 0se284iH4xkPPhPTU0RCSw KJIheJPiXLVlLCF1KFMxfQ ZdS7l2MvKocZQfS4M1IxWx lUDaY4I2PwEkzJVvH4Q4Bz TpuMAeZVEjcRQqUn7zvCIt fHPwbk6qlz66NRQ8p6FpwW dkDDE4SXJ5IgIdOe1tmTSy DHNqSY5iLjEplWNrMPQpzq 46jDxrXMhlstQqrR1oVoJf JKIvmVSbAVYxSS3rwQLjDX KohQ4jiktcFFCxBuQioboa SMYvyQecosHdGj3opRagZC C9HZebM3omsH1nNbZ1MYtc T7ehpE5yLLh7QMakbAZ0DH FwxL1hUA3mkdmlj5ktOhFo KV2rqlpui1puTgElMC4rhh t4r6crXpWvHA1zqvfhq2ub NzIwXGhlYWRlcnkwXGZvb3 PivolvRMTzy1OtB2InoEkx T72vfAqeA78uNWLdbWngnI 5hbDaxcQ4bVcMnVjBbKXxr bFxwbGFpblxmMVxmczIwXG dokvrhIVXiYLoiX3idQlRy GIIkdKjzRYtdw3BsTSYpHD DeHmHbWG2gOs8QKXyqZNYO XPHEBLXUJUNSHb0VQL5OEL SWIAVOQP4BTRICMS2KQ3a7 UGWlvySqLTXsXWMDCJ5nI0 fRAWGRCsSFYrxYKS7VBPVT UlRJTEFHRSBXSVRIIFNVUl UUCC2ALF6RQTJDWUMLCSLI RCBDSFJPTklDIElORkxBTU 1BVElPTlxwYXJccGFyIEIu IEJPTkUsIExFRlQgRklGVE ggTUVUQVRBUlNBTCwgQklP UFNZOlxwYXIgICAgLSBBQ1 SUPAJLA5GZA98GIGpDWFhP IFxwYXIgICAgLSBTRVBBUk QTRSESWhBCEOWQKAArH2Vq HqzQAr4IM45GMIVRANELOH WYW9HBRANREJDNSAWZR8PA M0AnJJ4ZH7YLT1gLLYILNU BHUkFOVUxBVElPTiBUSVNT ALBnHm7JKAEESR0HNGYixt 18BNC2DfNpj1P5WAH8NFHg PLQku7znQLPsmOLeGnNoXf NcZnRuYmpcdWMxXGRlZmYw f5dvi846lAMhy2ldSGCaUs D8eFOoWLMsfGRyA814JFKl PAabi9pix1KnQAMrwRUzu8 G7PDUAhsxegZg5rGiiN77z m7O0BrzuQ0mlGDNkETFyX1 VqTP0jBQQyCws9LWK6UVF4 VZBoLOCpD4QjRE3rXBAywE MbBXa3u4icmZhxXBDqYGR9 y2xkMCkhufCtNN2tca8jyX w0s7qmumFsBVEnWDIhiIJW UDBtH9HuaEgqPx8myDt7bZ wwDaonUVI0Uos4OP2gvm55 iqy0zBlfKFLtfechTgY5HJ haRKIcdeuqHZw2LPclGSCf hJX9JQRbnKYbG9KmSPLnHC 7zvbb6ESN6XDgiKWSxVmB0 NDBcaGVhZGVyeTcyMFxmb2 04QIN4SzJnHR6sA4Ujc8N7 aK2zvMNuZQWqfTMwVuWzOJ Ejpu2xoWAoXAdrs7ZqYUY6 yvQ1cLFpdJIkFJUlWyT6TK sjUU2nll68JROnODN8my2l bGNccGdicmRyaGVhZFxwZ2 PzBYRfs468IEDeR5HbRILl d0R7xdSyLrGpJAHddKY3gn M3KTAgBK6kyszci1aoJBqw HOwnPPWroiY9vkI1LJVljW VcK1VdbX9yDPWaBK6akvyp q9cgGOA3RLmnNJGzVAF3Cd VeNJTwu6Bzrar5LtToc9Kq cHEcBGmyX67os103MLUely TjW3uomNYqixxzjMGtzoga LTrcjbS4YPNhGUtrttzhKB VnWMvwR0vrLbNpIPNasNqf OUqhk3EzPWGuDCZoJkCvtG YaHZWwCzj4JEDopEZzVPBj DlZvP2yekncqGgFVDOPlp9 jyO0lzoURWqIInX3WnZVyy vvAyIWekOIpgMLU2GUI7Dc 07SaT3CVPtbs87 CPT Code(s) (test code [id number] = 3357) IcEBZfp2cjQDQbqALwYzSt MzNcZnRuYmpcdWMxXGRlZm Yel7vga814kNPsl0ciWGSu CwT9oLUqDVZneJCiT326l3 tuk1duuzCvoMO1FNAyFAN7 MHwfivMoyqU2QLnpsMBqDx R2PRhlmjCvBZrwlnHifjPi Wif3BVLzK057PYI4sQupz1 gkORF6YFCcBLPwCrYiBm9w pAOtH648POVdDAVQSPTvqF c3DIDcqvCwpqJsvPSKq136 Y462d0lbFTEhxtFgmMwTwn rru5ztL452PFJylMArdbIy RlOmSFHmkFZaiWQ7OEJwMH 0qmbhuJsPlPK3ownfyWbTx NC1wfbq0SaKoKI8mrvowGy LzTSirIZCysawgZRQjj9Ss auaiBB5lS9Jfz9C5lM5tpD FtQDOvrYWiRcSiNYNodg9n dDRoZLahz7UvETI7jsI7zZ MhqYKlTCPbSN43Bkazd0En VvjnKDW1QIYstkJjv1Txz1 tuHjFuymTvX5xvS0VaVKWq BRVlDFPjUjLllxZav6Bhr2 PvlABniNk2o4btITOdUBYs kGvow9ruOXJ0TMOyY3S5rH Eaw9zbGYsfTDJwrXC2etbd SDciEXFvvoP6fsqyJTzxLB VeuQG1pngpNRflISWlGcW3 fexmJHmpZROrEOC9CEhzk7 54WIR1DFyiJkhzBGdsNZEg bmNvbnRccGduZGVjXHBsYW luXHBsYWluXGYwXGZzMjRc jAewaMisiW9yQhPyDtAgHQ dxOA8oVMJoY6bbbFLrKRKu DCArB8msFvJuzJ3gjCmvKS omfsNgKP0OP8X0GUZvigU1 JOEtDrA3RpeuSHRlORklEJ EgeDJccGFyfQ== CLINICAL HISTORY (test q6qqrSKsJKRjbHYdOjCiEP code = 3356) QsDNUbh6blCWXkrHGyEcZz MzNcZnRuYmpcdWMxXGRlZm Otd0wwn146wTOxz4htBUJy IpH4rFSiZHTfdGUxJ855d1 arr1bcnpUjgPG0SVQqDFL2 QQswfnHqxjC7TGzcjULpLv G6FLpfhtIcPQhxqzGmveHf Swv7PRQsC312JQV6zIrar7 fhQPV2YFUiBEWcGpSyEg9g oRNyK674WVEkQEKDGMZudJ d9GHGpoeMxxtPckHAQg002 B786t0tzNTLskbQscYxYcu vfy2taN218DZHrmSItppJd IrHpKJDuuSAncWT4IVNjFD 2cmfbiIrGgAO6xwfevDoTp HG1ctkm2NrXnYB9psynpZm PcMAuiGSOmyfbyQTUqt9Je ffljSF4oB6Jxu0P8rO4oiH RgMVOjpKCwRqSlMVYbcy5n oPErVSpww9DdEOW6oxY9bI QnkKHvGPEgXR96Ykvpv8Xd YdzzTLC6VCApaqGef1Ppb2 jhUwMvprUkM2rmP9FzCPGb FSMbMOXcWiGvesNwq3Znv6 WgvMRylFt7m6lsSPYeSXQf rQccl5nyOYX7PZYjZ3E6dP Thg7paJRxaNBGitTI0tsoz VQckZHGcnyI5sbikXFyqGD LriMH4wucrIIcuEURdUnZ5 rnrgVKcbRSRyBIT8QCrys7 59BUG6PStwTfdlNZgoACHl bmNvbnRccGduZGVjXHBsYW luXHBsYWluXGYwXGZzMjRc wIuqdWfbdW5lYsUvRkCsLN xfMV1lQUMyL7nouYLcIJIs KYOcQ7uxTdRyeI7hjSnzQP uriuVqIZ8dtHMzqScdhVy5 kPJrn0MpqBDssWK4lFjutO P0MXVyhcDdwKlknJnpUJVd t8TmOzxdAXTvkvGzGVGqXR RccGFyfQ== SPECIMEN SOURCE (test o4zykMFhDQXwpFJkVsWhXM code = 3377) LyHCFau9vrGEThvJSmUpYr MzNcZnRuYmpcdWMxXGRlZm Mhu7jlb093vUAvh0fjHQWy PoF8dIRaNHFqlTGoR215p1 fnz9ermeYipPV2GAMrWQX1 JXjqwhLejkH4VIptdDJzVe P2SQeyulIhQQyzhxAhlxNf Jkv3CQUsA753IFH5uLjuv2 zzGLH8JIXnIRIpRhRnWi2d hZLcF932SOUdXYQCVUTmjZ y6UVUvywAkizBzfFSVc669 W201n0uwQKEcidRupGgRdl jek0fcH452RCOffIVvouMg IvBeHAZuhXMsfAZ3DNZgBZ 4wbsspXjJnCZ8gzwqnRwLw PV7lcve8KpQdUM4lryksQl GpRTrqKMMgvdhyHKHtm7Ph kzzwQG8jA3Zqi7B6sA9nbE ShQRMzzDUgTuHwZVXdxk7h zQDaAXkkw0FoLDQ2euW8kQ TlaZEvTRKgJQ31Muwwi0Xu ZbyiILC2LEZmxoXey8Jhj7 uoVyQoqsAfX7htZ3JpISVi HAKlBBXaHqDtorQnp7Xvc7 GlpWGdmEk7j1ukAKShFXHr sJezm8hoWHX4LAYaE4M0tB Oeb2zoMZliAAIvvKB6aceg YUtiFWGmjmT1jtdyLWadTP ZhiYM5foyxRKqnPVVvQcU9 bcsgDUfrZTXmWKD6WAsxe2 72BNV9IHofSbmaFZejVBXj bmNvbnRccGduZGVjXHBsYW luXHBsYWluXGYwXGZzMjRc bMlnzRpsxT3aFqDqViSzXG rtFY1hJJTzG1djmIZgOBVp JIBfL8unMjCtcQ5uiQdaNJ xmczIwIEEuIExlZnQgNXRo XSFin8mryUOdNNEzRTduds hgTDArVMlhXiBnSCRsYQ2a mWI4OKTuKZovCUAmjb3= GROSS DESCRIPTION (test i6celXOiGBQfvUChJgVfUY code = 3366) HxYEEwz6skYTLagVQiJdWz MzNcZnRuYmpcdWMxXGRlZm Itr6nzb365lTGvs1lcZKJz KbS8dFMpKFLihTOqP462JN BaGKwyo4sbt4RvAYVxoSEl b8J8TWBEimruvYy2bCsqO3 1zc3S7GlclQ0arTLAxCZLj K7SdFF7kYYSvUdb0NOK4JT L0ICIwXNZjK6CmQR6aLPWh mECpILt1z8tiwRuhHMIeFO T4b7zmRWuvsmHsQK4bah2q qTx4a0ertzUlXVWdOEYioT CPIPFrZ9VwqCpoTl0tkLd8 uFcxEagdTXE4Xlr1FM7qar 20glg2gAmfFEJuhxokCgI4 XMoyBZSgeechFHp0HYdjDS JnbDcyMFxtYXJncjcyMFxt YXJndDcyMFxtYXJnYjcyMF zySGHuBBF7UUkpd850BMQ7 JJnmj3jqd6rysLOzFhu2JP OzPlIoOyyqJVbbq2Qyp1er ALZzoa3fPMI2xZHtsQasw3 F6cMLcDAEvdJOfqeTnOVNj UpN4YTelMG6pez00XQHzAB I7uj0syWVkgXcwkdUmcFOe UMvwM7NcKAFwd781MDGnC5 UkAICyj5O5kdFmZtZgWFUa kON5eaJ4HRXbYXs2cIEgxw A7lbBhaCOkZ5nkyH61EoXi nMOiM1JtrX52KcUbtZYaT1 CkqZ66RbXpiOBnK2LqgO71 VbBhkGYfGGRxpPZgJi7emT EhbCUjh9VekOShNPzeF99c n540MIWecmUjH8nrvIMili gofSUqfvkhIDijylZ6EYSb XHBsYWluXGYwXGZzMjBcbG FuZzEwMzNcaGljaFxmMFxk FpJtKIGnKLudG1oqSoOyIm WpJSQIaTFptE5jasTIOBlw ULSfM9GhssDpPRhqTIKfkH W5rGAmOObuXkDxRTPzs2m8 vQX9sMKvbTY7dTTpmMrxTR 6cpHAtVU6fVJ9bAZknYSfy wnDsq8ZnHG76oFPhjoOdhz QgZGVzaWduYXRlZCBhcyAi l96dgIH2pXCrqEVqUM49fG LyGyryG27nj6sllXOky9Gs r3vhvMSfjAEojP27BBKpws VwOjMqL55uwmXaYJ5uEOX8 cmluZyAwLjcgeCAwLjMgeC PlHzFyQ69oATSjHYHidQTf jI2xrsPquvEpeQSqiII1XC OsYF73wKBxjDwzjO34mxWP GKMfuiJizZ81bmYhYBUufL Yic3v8gYbdvg5ldCPrZTKn olLQhHYffP1lbmNQCIktDM BmF3WdavYpJKbqSKNyzYN6 kPRmEKniRuHqFZSka0b1dT P7tECgeHT1dMDuxGceKO7z oLMoAB4fQZ4aKUqqOMxjkn Knz8ZoGC99aYQxxsXhkgAb ZGVzaWduYXRlZCBhcyAibW O4BPJcupRfaSJqAFD7Wsko T44ch1itfSPja5AbFd68ay YnCJFtJjQsb68wyGojr0Ji AINwDMYmd93tBKVxBGfiCW 01jrIoLKBezWKsrtrpMr7k UKzaWQ74PQxvRU91PEHpTO gpLXRlS8JyE3E0TO0aaIab IHNwZWNpbWVuIGlzIGVudG ebBYp8FWlhrYVvkfwnDCtl czIwXGxhbmcxMDMzXGhpY2 atDnNuBLZjuHtbTXtyo3Cd EXGhXQYaWiPwJwQqQF7sSB keyX4sOMGrZGnsf83kyFTf t85aNFZsYQycBHJpOSZjBu BcbGFuZzEwMzNcaGljaFxm CKinYhRoWDZlMHrtT6lrVb BcZnMyMCAgTUcvZXdccGFy fQ== MICROSCOPIC DESCRIPTION g6dhlYUlFVWrgDSiOzNjMO (test code = 3371) EkRTVox3qdZIHljYAqGhJi MzNcZnRuYmpcdWMxXGRlZm Qpe5mlp891aFTmr4jyDWBc JcR7cGUeTPKyhCFuC942v9 imv7dliuTvsDQ3UWAgLOE8 VEbzmpZtwzF7XAwxvLJxNd L8PXkgypHnWDflibXfhjKc Coj4OQOlL095JZB1aYaou6 jjRNW3APXsKJNeYqHkVm5h fJBrW320KPItLTFCEUGqrU r1PYBqbjOonrKzkBIZe890 K554e7ghYJYiglJwlNtIqx znw8kuO544IOVjwRFnxdBt TsFlQRSdfTSdxXP4PMFlIH 9fjtliKgAfQT6raaefZpHo WF5jdnk2FjPkSQ9jgdgxIe HvWVltVERuhpokZHOcn7Yn wqzjYK5jD3Wqn4G6fB1fvS GvLYZuaWUvTwVgFDOirk1n zJHsZGbvl5PiWPC3pyP4vN VmnURhLPNxZY62Omrko8Vk XujvZHX0TALmooNph4Txw8 vrArDszhOzB3diK1JmBCAm OSIwFCDdJySryiTdf6Uhv1 XsfTVqlSz0r0xeMOIxJPPy fDkvw7qlWCY5SDYgV7B0qD Lmh6nhXEiwCGBufSB7ishb SJifZYCgdlZ7etiuEUxkLR VqxAF3cbbqHUomKBZtYpT8 asqqCJdnPGGiIEF9ZKwlg6 45XYF0VSjuRfchUKprTYBo bmNvbnRccGduZGVjXHBsYW luXHBsYWluXGYwXGZzMjRc yQxhdFllzC7dEeOgUgFaGV ikIO8vGSXxB0rnzWXdLTIl PXLmZ5dbMmOppY8nySizWM agtpCzMNBcLf4tUYNhUw4p bWVkLlxwYXJ9 Gross assessment was [facility] performed at (test [facility], Department = 2777) of Pathology, [address] [place] [address], Technical component was [facility]'s performed at ([facility], = [facility]) Department of Pathology, [address] [place] [address], [address] [facility] was performed at ([facility], Department code = 2779) of Pathology, [address] [place] [address], [facility] [id number] 10:21:00Surgical Pathology Report Case: [id number] Authorizing Provider: Tala Santacruz DPM Collected: 12/30/2019 01:38 PM Ordering Location: [address] Med/Surg Received: 12/31/2019 06:52 AM Pathologist: [...] TISSUE FORMATION Signing Pathologist Direct Phone Line: [phone] signed by Jovita Griffith MD on 01/04/2020 at 10:21 AMMG/[id number] of left 5th metatarsal, ulcer of bilateral [...] Performed.[facility], Department of Pathology, [address] [place] [address], [facility], Department of Pathology, [address] [place] [address], [facility], [facility] of [facility], [address] [place] [address], [id number] 10:47:00 Test Item Value Reference Interpretation Comments [...] negative Staphylococcus SURGICALLY OBTAINED CULTURE + GRAM [id number] 08:31:00 Test Item Value Reference Range Interpretation Comments CULTURE (BEAKER) (test code No growth = 1095) GRAM STAIN RESULT (BEAKER) <1+ WBCs (test code = 1123) GRAM STAIN RESULT (BEAKER) No organisms seen (test code = 57632) SURGICALLY OBTAINED CULTURE + GRAM [id number] 08:19:00 Test Item Value Reference Interpretation Comments Range CULTURE (BEAKER) STENOTROPHOMONAS A 2+ Sten otrophomonas (test code = 1095) MALTOPHILIA maltophil ia Levofloxacin (test S code = 22) Trimethoprim + S Sulfamethoxazole (test code = 47) GRAM STAIN RESULT <1+ WBCs (BEAKER) (test code = 1123) GRAM STAIN RESULT No organisms seen (BEAKER) (test code = 126187) POC-Glucose [id number] 06:47:00 Test Item Value Reference Range Interpretation Comments POC-Glucose Meter (test 102 mg/dL 70-110 : TE STED AT [facility] code = 1538) [facility] [place] [address]: Senior Engineering Team Leader/Techni artemio ID = [id number] for [facility], [facility] Interpretation (test Normal code = 57499-6) [facility] [id number] 06:47:00 Test Item Value Reference Range Interpretation Comments POC-Glucose Meter (test 102 mg/dL 70-110 : TE STED AT SLSL code = 1538) [address] [place] [address]: Senior Engineering Team Leader/Techni artemio ID = [id number] for Brown, Anne Lab Interpretation (test Normal code = 05165-3) [facility]-GLUCOSE [id number] 06:47:00 Test Item Value Reference Range Interpretation Comments POC-GLUCOSE METER 102 mg/dL 70-110 : TESTED A T SLSL 1317 (BEAKER) (test code [address], = 1538) [facility] [place] [address]: Senior Engineering Team Leader/Techni artemio ID = [id number] for Anne Busby Comprehensive metabolic [id number] 06:34:00 Test Item Value Reference Range Interpretation Comments Protein, Total (test 6.1 See_Comment [Autom ated code = 2885-2) message] The system which generated this result transmit merna reference range : 6.0 - 8.5 gm/dL . The reference range was not u sed to interpret th is result as normal/abnormal . Albumin (test code = 2.3 g/dL 3.5-5 L 47016-9) Alkaline Phosphatase 81 U/L 30-115 (test code = 6768-6) Total Bilirubin (test 0.4 mg/dL 0.1-1.2 code = 1975-2) Sodium (test code = 137 meq/L 293-610 9825-2) Potassium (test code 3.7 meq/L 3.6-5.5 = 2823-3) Chloride (test code = 100 meq/L 98-106 2075-0) CO2 (test code = 28 meq/L 20-29 2028-9) BUN (test code = 14 mg/dL 10-26 3094-0) Creatinine (test code 2.31 mg/dL 0.5-1.2 H = 2160-0) Glucose (test code = 100 mg/dL 70-110 2345-7) Calcium (test code = 7.5 mg/dL 8.5-10.5 L 41126-8) AST (test code = 15 U/L 5-40 1920-8) ALT (test code = 6 U/L 5-50 1742-6) EGFR (test code = 21 mL/min/1.73 [place] [address]-7) NOT ACCURATE CREATININE CLEARANCE IN PREDICTING GLOMERULAR FILTRATION RATE . ESTIMATED GFR I S NOT APPLICABLE FOR DIALYSIS PATIEN ZIA (test code = ZIA) Senior Engineering Team Leader ID - ADMIN Lab Interpretation Abnormal (test code = 66516-0) [facility] [id number] 06:34:00 Test Item Value Reference Range Interpretation Comments Protein, Total (test 6.1 See_Comment [Autom ated code = 2885-2) message] The system which generated this result transmit merna reference range : 6.0 - 8.5 gm/dL . The reference range was not u sed to interpret th is result as normal/abnormal . Albumin (test code = 2.3 g/dL 3.5-5 L 98576-2) Alkaline Phosphatase 81 U/L 30-115 (test code = 6768-6) Total Bilirubin (test 0.4 mg/dL 0.1-1.2 code = 1974-2) Sodium (test code = 137 meq/L 606-254 4903-2) Potassium (test code 3.7 meq/L 3.6-5.5 = 2823-3) Chloride (test code = 100 meq/L 98-106 2075-0) CO2 (test code = 28 meq/L 20-29 2028-9) BUN (test code = 14 mg/dL 10-26 3094-0) Creatinine (test code 2.31 mg/dL 0.5-1.2 H = 2160-0) Glucose (test code = 100 mg/dL 70-110 2345-7) Calcium (test code = 7.5 mg/dL 8.5-10.5 L 96427-1) AST (test code = 15 U/L 5-40 1920-8) ALT (test code = 6 U/L 5-50 1742-6) EGFR (test code = 21 mL/min/1.[place] [address]-5) NOT ACCURATE CREATININE CLEARANCE IN PREDICTING GLOMERULAR FILTRATION RATE . ESTIMATED GFR I S NOT APPLICABLE FOR DIALYSIS PATIEN TSAlfred ZIA (test code = ZIA) Senior Engineering Team Leader ID - ADMIN Lab Interpretation Abnormal (test code = 54295-2) [facility] [id number] 06:34:00 Test Item Value Reference Range Interpretation [...] NOT APPLICABLE FOR DIALYSIS PATIEN TS. Senior Engineering Team Leader ID - ADMINCBC with platelet count + automated [id number] 06:06:00 Test Item Value Reference Range Interpretation Comments WBC (test code = 6690-2) 5.7 See_Comment [A utomated message] The system [employer] generated this result transmitted ref erence range: 4.0 - 10 .0 K/L. The refe rence range was not u sed to interpret this result as normal/abnor mal. RBC (test code = 789-8) 2.41 See_Comment L [Au tomated message] The system [employer] generated this result transmitted ref erence range: 4.00 - 5 .00 M/L. The refe rence range was not u sed to interpret this result as normal/abnor mal. MCHC (test code = 786-4) 30.8 See_Comment L [A utomated message] The system [employer] generated this result transmitted ref erence range: [...] L [Aut omated message] 777-3) The system [employer] generated this result transmitted ref erence range: 150 - 43 0 K/CU MM. The referen ce range was not u sed to interpret this result as normal/abnor mal. MPV (test code = 10.5 fL 6-11.5 95482-4) nRBC (test code = 413) 0 See_Comment [Aut omated message] The system [employer] generated this result transmitted ref erence range: [...] See_Comment [Aut omated message] 670) The system [employer] generated this result transmitted ref erence range: 1.80 - 8 .00 K/L. The refe rence range was not u sed to interpret this result as normal/abnor mal. # Lymphs (test code = 1.66 See_Comment [Auto mated message] 414) The system [employer] generated this result transmitted ref erence range: 1.48 - 4 .50 K/L. The refe rence range was not u sed to interpret this result as normal/abnor mal. # Monos (test code = 0.28 See_Comment [Autom ated message] 415) The system [employer] generated this result transmitted ref erence range: 0.00 - 1 .30 K/L. The refe rence range was not u sed to interpret this result as normal/abnor mal. # Eos (test code = 416) 0.12 See_Comment [Au tomated message] The system [employer] generated this result transmitted ref erence range: 0.00 - 0 .50 K/L. The refe rence range was not u sed to interpret this result as normal/abnor mal. # Baso (test code = 417) 0.07 See_Comment [A utomated message] The system [employer] generated this result transmitted ref erence range: 0.00 - 0 .20 K/L. The refe rence range was not u sed to interpret this result as normal/abnor mal. Immature 0 % 0-0 Granulocytes-Relative (test code = 2801) Lab Interpretation (test Abnormal code = 93593-0) [facility] with platelet count + automated [id number] 06:06:00 Test Item Value Reference Range Interpretation Comments WBC (test code = 6690-2) 5.7 See_Comment [A utomated message] The system [employer] generated this result transmitted ref erence range: 4.0 - 10 .0 K/L. The refe rence range was not u sed to interpret this result as normal/abnor mal. RBC (test code = 789-8) 2.41 See_Comment L [Au tomated message] The system [employer] generated this result transmitted ref erence range: 4.00 - 5 .00 M/L. The refe rence range was not u sed to interpret this result as normal/abnor mal. MCHC (test code = 786-4) 30.8 See_Comment L [A utomated message] The system [employer] generated this result transmitted ref erence range: [...] = 84 See_Comment L [Aut omated message] 997-3) The system [employer] generated this result transmitted ref erence range: 150 - 43 0 K/CU MM. The referen ce range was not u sed to interpret this result as normal/abnor mal. MPV (test code = 10.5 fL 6-11.5 93906-1) nRBC (test code = 413) 0 See_Comment [Aut omated message] The system [employer] generated this result transmitted ref erence range: [...] See_Comment [Aut omated message] 670) The system [employer] generated this result transmitted ref erence range: 1.80 - 8 .00 K/L. The refe rence range was not u sed to interpret this result as normal/abnor mal. # Lymphs (test code = 1.66 See_Comment [Auto mated message] 414) The system [employer] generated this result transmitted ref erence range: 1.48 - 4 .50 K/L. The refe rence range was not u sed to interpret this result as normal/abnor mal. # Monos (test code = 0.28 See_Comment [Autom ated message] 415) The system [employer] generated this result transmitted ref erence range: 0.00 - 1 .30 K/L. The refe rence range was not u sed to interpret this result as normal/abnor mal. # Eos (test code = 416) 0.12 See_Comment [Au tomated message] The system [employer] generated this result transmitted ref erence range: 0.00 - 0 .50 K/L. The refe rence range was not u sed to interpret this result as normal/abnor mal. # Baso (test code = 417) 0.07 See_Comment [A utomated message] The system [employer] generated this result transmitted ref erence range: 0.00 - 0 .20 K/L. The refe rence range was not u sed to interpret this result as normal/abnor mal. Immature 0 % 0-0 Granulocytes-Relative (test code = 2801) Lab Interpretation (test Abnormal code = 36656-1) [facility] W/PLT COUNT & AUTO [id number] 06:06:00 Test Item Value Reference Range Interpretation [...] PERCENT (BEAKER) (test code = 2801) POCT-GLUCOSE [id number] 21:02:00 Test Item Value Reference Range Interpretation Comments POC-GLUCOSE METER 167 mg/dL 70-110 H : TESTED A T [facility] 1317 (BEAKER) (test code [address] [facility] [address], = 15[address]) [place] [address]: Senior Engineering Team Leader/Techni artemio ID = [id number] for Anne Busby POCT-GLUCOSE [id number] 18:12:00 Test Item Value Reference Range Interpretation Comments POC-GLUCOSE METER 121 mg/dL 70-110 H : TESTED A T [facility] 1317 (BEAKER) (test code [facility] [address], = 1538) [place] [address]: Senior Engineering Team Leader/Techni artemio ID = [id number] for Cortney Cohen POCT-GLUCOSE [id number] 11:54:00 Test Item Value Reference Range Interpretation Comments POC-GLUCOSE METER 117 mg/dL 70-110 H : TESTED A T [facility] 1317 (BEAKER) ([facility] [address] = [address]) [place] [address]: Senior Engineering Team Leader/Techni artemio ID = [id number] for Cortney Cohen COMPREHENSIVE METABOLIC [id number] 06:47:00 Test Item Value Reference Range Interpretation [...] NOT APPLICABLE FOR DIALYSIS PATIEN TS. Senior Engineering Team Leader ID - QDDVFSzdvvskqq6999-38-96 06:42:00 Test Item Value Reference Range Interpretation Comments Magnesium (test code = 1.6 mg/dL 1.5-3 13109-4) ZIA (test code = ZIA) Senior Engineering Team Leader ID - ADMIN Lab Interpretation (test Normal code = 49997-8) [facility]2020[facility] 06:42:00 Test Item Value Reference Range Interpretation Comments Magnesium (test code = 1.6 mg/dL 1.5-3 86871-2) ZIA (test code = ZIA) Senior Engineering Team Leader ID - ADMIN Lab Interpretation (test Normal code = 42912-4) [facility] [id number] 06:42:00 Test Item Value Reference Range Interpretation Comments POC-GLUCOSE METER 101 mg/dL 70-110 : TESTED A T [facility] 1317 (BEAKER) (test code [address], = 1538) [facility] [place] [address]: Senior Engineering Team Leader/Techni artemio ID = [id number] for Anne Busby [id number] 06:42:00 Test Item Value Reference Range Interpretation Comments MAGNESIUM (BEAKER) (test code = 1.6 mg/dL 1.5-3.0 627) Senior Engineering Team Leader ID - ADMINCBC W/PLT COUNT & AUTO [id number] 06:37:00 Test Item Value Reference Range Interpretation [...] PERCENT (BEAKER) (test code = 2801) POCT-GLUCOSE [id number] 20:24:00 Test Item Value Reference Range Interpretation Comments POC-GLUCOSE METER 155 mg/dL 70-110 H : TESTED A T [facility] 1317 (BEAKER) (test code [address], = 1538) [facility] [address]: Senior Engineering Team Leader/Techni artemio ID = [id number] for Anne Busby POCT-GLUCOSE [id number] 16:39:00 Test Item Value Reference Range Interpretation Comments POC-GLUCOSE METER 164 mg/dL 70-110 H : Notified RN/MD: TESTED (BEAKER) (test code AT [facility]SL [address] = 1538) [facility], [facility] [address]: Senior Engineering Team Leader/Techni artemio ID = [id number] for Alondra Kelley SARS-CoV2/RT-PCR (Asymptomatic ONLY)2019-12-30 15:57:00 Test Item Value Reference Range Interpretation Comments SARS-COV2/RT-PCR Negative Not Detected, (test code = Negative, See 62598-2) external report for linked test SARS-COV-2 [facility] (test code = 55436-6) ZIA (test code = Negative result for [...] of the Act. Fact Sheet for Healthcare Providers:https://www.[employer]/sites/default/f loco/product/documents/F act_Sheet_HC_Providers_L bwf_EVVB-AdH-6.pdf Fact Sheet for Healthcare Patients:https://www.[employer]/sites/default/fi les/product/documents/Fa ct_Sheet_Patients_Lyra_S ARS-CoV-2.pdf Performing Laboratory:[facility] [place] [address] [facility] (Asymptomatic ONLY)2019-12-30 15:57:00 Test Item Value Reference Range Interpretation Comments SARS-COV2/RT-PCR Negative Not Detected, (test code = Negative, See 77414-0) external report for linked test SARS-COV-2 [facility] PERFORMING LAB (test code = 02664-9) ZIA (test code = Negative result for [...] of the Act. Fact Sheet for Healthcare Providers:https://www.[employer]/sites/default/f loco/product/documents/F act_Sheet_HC_Providers_L lix_XAXN-LyY-8.pdf Fact Sheet for Healthcare Patients:https://www.[employer]/sites/default/fi les/product/documents/Fa ct_Sheet_Patients_Lyra_S ARS-CoV-2.pdf Performing Laboratory:[facility], [place] [address] [place], [place] [address]ARS-COV2/RT-PCR ([facility])2019-12-30 15:57:00 Test Item Value Reference Range Interpretation Comments SARS-COV2/RT-PCR (test Negative Not Detected, Negative, code = 5626757) See external report for linked test SARS-COV-2 PERFORMING LAB [facility] (test code = 0547336) Negative result for this test determines that [...] 564(g) of the Act.Fact Sheet for Healthcare Providers:https://www.[employer]/sites/default/files/product/documents/Fact_Shee g_CY_Bammrftvw_Zzhf_MPBH-UpC-5.pdfFact Sheet for Healthcare Patients:https://www.[employer]/sites/default/files/product/ documents/Iuwp_Loiyd_Tqinqpev_Fabn_KFVT-BjG-0.pdfPerforming Laboratory:[facility] [place], [place] [address]alexys keyTrumann, [place] [address]FQHT-LVJVRSB METER 2019-12-30 11:50:00 Test Item Value Reference Range Interpretation Comments POC-GLUCOSE METER 82 mg/dL 70-110 : Notified RN/MD: TESTED (CiraNovaAKER) (test code = AT [facility] [address]) [facility] [address]: Senior Engineering Team Leader/Techni artemio ID = [id number] for Alondra Kelley WOUND CULTURE + GRAM [id number] 10:45:00 Test Item Value Reference Interpretation Comments Range CULTURE (CiraNovaAKER) STENOTROPHOMONAS A 1+ Sten otrophomonas (test code = 1095) MALTOPHILIA maltophil ia Levofloxacin (test S code = 22) Trimethoprim + S Sulfamethoxazole (test code = 47) CULTURE (BEAKER) A 1+ Kary (test code = 1095) parapsilo sis GRAM STAIN RESULT <1+ WBCs (BEAKER) (test code = 1123) GRAM STAIN RESULT <1+ gram negative (BEAKER) (test code rods = 320919) POCT-GLUCOSE [id number] 05:50:00 Test Item Value Reference Range Interpretation Comments POC-GLUCOSE METER 103 mg/dL 70-110 : Notified RN/MD: TESTED (BEAKER) (test code AT [facility] [address] = 1538) [facility] [address]: Senior Engineering Team Leader/Techni artemio ID = [id number] for Zonia Healy COMPREHENSIVE METABOLIC [id number] 05:44:00 Test Item Value Reference Range Interpretation [...] NOT APPLICABLE FOR DIALYSIS PATIEN TS. Senior Engineering Team Leader ID - ADMINCBC W/PLT COUNT & AUTO [id number] 05:29:00 Test Item Value Reference Range Interpretation [...] PERCENT (BEAKER) (test code = 2801) POCT-GLUCOSE [id number] 21:21:00 Test Item Value Reference Range Interpretation Comments POC-GLUCOSE METER 185 mg/dL 70-110 H : Notified RN/MD: TESTED (BEAKER) (test code AT [facility] [address] [address] = 1538) [place] [address]: Senior Engineering Team Leader/Techni artemio ID = [id number] for Zonia Healy POCT-GLUCOSE [id number] 11:21:00 Test Item Value Reference Range Interpretation Comments POC-GLUCOSE METER 143 mg/dL 70-110 H : Notified RN/MD: TESTED (BEAKER) (test code AT [facility] [address] [address] = 1538) [place] [address]: Senior Engineering Team Leader/Techni artemio ID = [id number] for Alondra Kelley COMPREHENSIVE METABOLIC [id number] 06:27:00 Test Item Value Reference Range Interpretation [...] 347) EGFR (BEAKER) (test 15 mL/min/1.73 ESTIMA MRENA GFR IS code = 1092) sq m NOT ACCURATE CREATININE CLEARANCE IN PREDICTING GLOMERULAR FILTRATION RATE . ESTIMATED GFR I S NOT APPLICABLE FOR DIALYSIS PATIEN TS. Senior Engineering Team Leader ID - ADMINPOCT-GLUCOSE [id number] 06:21:00 Test Item Value Reference Range Interpretation Comments POC-GLUCOSE METER 73 mg/dL 70-110 : Notified RN/MD: TESTED (BEAKER) (test code = AT [facility]LS L [address]) [facility] [address]: Senior Engineering Team Leader/Techni artemio ID = [id number] for Zonia Healy CBC W/PLT COUNT & AUTO [id number] 06:00:00 Test Item Value Reference Range Interpretation [...] PERCENT (BEAKER) (test code = 2801) POCT-GLUCOSE [id number] 20:48:00 Test Item Value Reference Range Interpretation Comments POC-GLUCOSE METER 84 mg/dL 70-110 : Notified RN/MD: TESTED ([facility]) (test code = AT SLS L [address] [place] [address]) [place] [address]: Senior Engineering Team Leader/Techni artemio ID = [id number] for Zonia Healy POCT-GLUCOSE [id number] 17:51:00 Test Item Value Reference Range Interpretation Comments POC-GLUCOSE METER 59 mg/dL 70-110 L : [facility] T [facility]17 [facility] (test code = [address] [facility] [facility], 153) [place] [address]: Senior Engineering Team Leader/Techni artemio ID = [id number] for Berta Servin POCT-GLUCOSE [id number] 13:28:00 Test Item Value Reference Range Interpretation Comments POC-GLUCOSE METER 67 mg/dL 70-110 L : [facility]ED A T [facility] 1317 [facility] (test code = [address]) [facility] [address]: Senior Engineering Team Leader/Techni artemio ID = [id number] for Berta Servin POCT-GLUCOSE [id number] 06:04:00 Test Item Value Reference Range Interpretation Comments POC-GLUCOSE METER 94 mg/dL 70-110 : TESTED A T [facility] [address]17 (BEAKER) (test code = [address]) [place] [address]: Senior Engineering Team Leader/Techni artemio ID = [id number] for Anahi Sherman COMPREHENSIVE METABOLIC [id number] 05:35:00 Test Item Value Reference Range Interpretation [...] NOT APPLICABLE FOR DIALYSIS PATIEN TS. Senior Engineering Team Leader ID - ADMINCBC W/PLT COUNT & AUTO [id number] 04:56:00 Test Item Value Reference Range Interpretation [...] PERCENT (BEAKER) (test code = 2801) POCT-GLUCOSE [id number] 20:43:00 Test Item Value Reference Range Interpretation Comments POC-GLUCOSE METER 137 mg/dL 70-110 H : TESTED A T [facility] [address]17 (BEAKER) (test code [address] [facility] [address], = 1538) [facility] [address]: Senior Engineering Team Leader/Techni artemio ID = [id number] for Anahi Sherman MR, EXTREMITY, LOWER, WITHOUT CONTRAST, [id number] 16:55:00MRI LEFT FOOT.Unlisted Reason for Exam - [...] MDReport Verified Date/Time: 12/27/2019 16:55:07 Reading Location: [facility] Radiology Reading Room MR lower extremity without IV contrast left [id number] 16:55:00Interface, External Ris In - 12/27/2019 4:57 [...] Ring Verified Date/Time: 12/27/2019 16:55:07 Reading Location: [facility] Radiology Reading Room Electronically signed by: Adrienne CHU 12/27/2019 04[facility]55 [facility] [id number] 16:55:00Interface, External Ris In - 12/27/2019 4:57 [...] Ring Verified Date/Time: 12/27/2019 16:55:07 Reading Location: [facility] Radiology Reading Room Electronically signed by: Adrienne CHU 12/27/2019 04:55 [facility] [id number] 14:19:00 Test Item Value Reference Range Interpretation Comments POC-GLUCOSE METER 232 mg/dL 70-110 H : TESTED A T [facility] 1317 (BEAKER) (test code [address], = 1538) [facility] [address]: Senior Engineering Team Leader/Techni artemio ID = [id number] for Christina r, Berta CT, CTA AAA, W/ GÓMEZ.EXT.[id number] 11:38:00Bilateral lower extremities Addendum BeginsREPORT STATUS:A I agree with the nonvascular findings with exceptions and emphasis as below:*Moderate right and small left pleural effusions are partially visualized.*Large volume ascites.*Diffuse anasarca*The reflux of contrast into the hepatic veins is concerning for volume overload. Signed: Molly Linares MDReport Verified Date/Time: 12/27/2019 11:38:28 Reading Location: [facility] Diagnostic Imaging Reading Room - [place] [address] [address] angiography of the abdominal aorta and runoff, 26-Dec-19 INDICATION: This is a 64 year old female with with lower leg penetrating trauma presents for assessment. TECHNIQUE: Spiral acquisition before and during intravenous contrast administration using a [employer] multidetector CT scanner. Images were obtained before [...] identified. However, significant calcification identified of the comanche left SFA, for example at image 516, [...] the right popliteal artery is patent, with kubc-wd-xvqsmwgn diffuse calcification identified with no obstructive lesion [...] However, in the distal left SFA, the comanche artery substantial calcification identified and the stent [...] atherosclerosis identified. 4. In the right, the comanche right SFA is not filled by contrast [...] dictated regarding the non-vascular findings by the Irrigator Overhead Radiologist. Signed: Shlomo Dockery MDReport Verified Date/Time: 12/27/2019 07:59:51 Reading Location: [place] [address] CT Reading Room Protein electrophoresis, serum 2019-12-27 [...] as normal/abnormal . ZIA (test code = Senior Engineering Team Leader ID - ZIA) LEONIE F Lab Interpretation Abnormal (test code = 72409-6) [facility], [id number] 09:29:00 Test Item Value Reference Range Interpretation [...] as normal/abnormal . ZIA (test code = Senior Engineering Team Leader ID - ZIA) CAROLINA F Lab Interpretation Abnormal (test code = 45984-4) [facility] HospitalPROTEIN ELECTROPHORESIS, [id number] 09:29:00 Test Item Value Reference Range Interpretation [...] chronic inflammatory response. No monoclonal bands detected. [id number] Rocio Galindo MD (BEAKER) (test code = (electronic signature) 2616) PROTEIN TOTAL SERUM, 6.3 gm/dL 6.0-8.3 SPEP (BEAKER) (test code = 3400) Senior Engineering Team Leader ID - CAROLINA FCTA AAA and [id number] 07:59:00Interface, External Ris In - 12/27/2019 11:40 AM CDTAddendum BeginsREPORT STATUS:A I agree with the nonvascular findings with exceptions and emphasis as below:*Moderate right andsmall left pleural effusions are partially visualized.*Large volume ascites.*Diffuse anasarca*The reflux of contrast into the hepatic veins is concerning for volume overload. Signed: Molly Linares MDReport Verified Date/Time: 12/27/2019 11:38:28 Reading Location: [facility] Diagnostic Imaging Reading Room - [address] EndsFINAL REPORT CT angiography of the abdominal aorta and runoff, 26-Dec-19 INDICATION: This is a 64 year old female with with lower leg penetrating trauma presents for assessment. TECHNIQUE: Spiral acquisition before and during intravenous contrast administration using a [employer] multidetector CT scanner. Images were obtained before [...] identified. However, significant calcification identified of the comanche left SFA, for example at image 516, [...] the right popliteal artery is patent, with bpoz-uv-huqtbbvm diffuse calcification identified with no obstructive lesion [...] However, in the distal left SFA, the comanche artery substantial calcification identified and the stent [...] atherosclerosis identified. 4. In the right, the comanche right SFA is not filled by contrast [...] dictated regarding the non-vascular findings by the Irrigator Overhead Radiologist. Signed: Shlomo Dockery Verified Date/Time: 12/27/2019 07:59:51 Reading Location: [place] [id number] Reading [facility] and [id number] 07:59:00Interface, External Ris In - 12/27/2019 11:40 AM CDTAddendum BeginsREPORT STATUS:A I agree with the nonvascular findings with exceptions and emphasis as below:*Moderate right andsmall left pleural effusions are partially visualized.*Large volume ascites.*Diffuse anasarca*The reflux of contrast into the hepatic veins is concerning for volume overload. Signed: Molly Linares MDReport Verified Date/Time: 12/27/2019 11:38:28 Reading Location: [facility] Diagnostic Imaging Reading Room - [place] [address] [id number] angiography of the abdominal aorta and runoff, 26-Dec-19 INDICATION: This is a 64 year old female with with lower leg penetrating trauma presents for assessment. TECHNIQUE: Spiral acquisition before and during intravenous contrast administration using a [employer] multidetector CT scanner. Images were obtained before [...] identified. However, significant calcification identified of the comanche left SFA, for example at image 516, [...] the right popliteal artery is patent, with tbtg-up-whathfyv diffuse calcification identified with no obstructive lesion [...] However, in the distal left SFA, the comanche artery substantial calcification identified and the stent [...] atherosclerosis identified. 4. In the right, the comanche right SFA is not filled by contrast [...] dictated regarding the non-vascular findings by the Irrigator Overhead Radiologist. Signed: Shlomo Dockery MDReport Verified Date/Time: 12/27/2019 07:59:51 Reading Location: [place] [address] [address] Reading Room [facility] [id number] 06:56:00 Test Item Value Reference Range Interpretation Comments POC-GLUCOSE METER 39 mg/dL 70-110 LL : Notified RN/: TESTED (BEAKER) (test code = AT [facility] L [address]) [facility] [address]: Senior Engineering Team Leader/Techni artemio ID = [id number] for Anahi Sherman COMPREHENSIVE METABOLIC [id number] 06:15:00 Test Item Value Reference Range Interpretation [...] NOT APPLICABLE FOR DIALYSIS PATIEN TS. Senior Engineering Team Leader ID - ADMINPOCT-GLUCOSE [id number] 06:01:00 Test Item Value Reference Range Interpretation Comments POC-GLUCOSE METER 55 mg/dL 70-110 L : Notified RN/MD: TESTED (BEAKER) (test code = AT [facility]LS [address]) [facility] [address]: Senior Engineering Team Leader/Techni artemio ID = [id number] for Anahi Sherman CBC W/PLT COUNT & AUTO [id number] 05:44:00 Test Item Value Reference Range Interpretation [...] PERCENT (BEAKER) (test code = 2801) POCT-GLUCOSE [id number] 21:03:00 Test Item Value Reference Range Interpretation Comments POC-GLUCOSE METER 278 mg/dL 70-110 H : Notified RN/MD: TESTED ([facility]) (test code AT [facility] [address] = [address]38) [place] [facility] [address]: Senior Engineering Team Leader/Techni artemio ID = [id number] for Anahi Sherman POCT-GLUCOSE [id number] 16:53:00 Test Item Value Reference Range Interpretation Comments POC-GLUCOSE METER 70 mg/dL 70-110 : TESTED A T [facility] 1317 ([facility]) (test code = [address]) [place] [address]: Senior Engineering Team Leader/Techni artemio ID = [id number] for Nalini Jean Baptiste POCT-GLUCOSE [id number] 12:11:00 Test Item Value Reference Range Interpretation Comments POC-GLUCOSE METER 97 mg/dL 70-110 : TESTED A T [facility] [address] (BEAKER) (test code = [address], [address]) [place] [address]: Senior Engineering Team Leader/Techni artemio ID = [id number] for Nalini Jean Baptiste POCT-GLUCOSE [id number] 06:21:00 Test Item Value Reference Range Interpretation Comments POC-GLUCOSE METER 71 mg/dL 70-110 : TESTED A T [facility] [address] (BEAKER) (test code = [address], 15[address]) [place] [address]: Senior Engineering Team Leader/Techni artemio ID = [id number] for Sukhdeep Alamohael COMPREHENSIVE METABOLIC [id number] 05:50:00 Test Item Value Reference Range Interpretation [...] NOT APPLICABLE FOR DIALYSIS PATIEN TS. Senior Engineering Team Leader ID - ADMINCBC W/PLT COUNT & AUTO [id number] 05:17:00 Test Item Value Reference Range Interpretation [...] (BEAKER) (test code = 2801) Prepare Leuko-Red [id number] 23:54:00 Test Item Value Reference Range Interpretation Comments CROSSMATCH (test code = 2264) COMPATIBLE Unit ABO (test code = O Pos 7437241) UNIT NUMBER (test code = [id number] 934-0) Status (test code = 2652934) [facility] Blood [facility] Product (test code RED BLOOD CELLS = 2263) PRODUCT CODE (test code = L9624B67 933-2) [facility] Hospital[facility]uk[facility]Red [id number] 23:54:00 Test Item Value Reference Range Interpretation Comments CROSSMATCH (test code = 2264) COMPATIBLE Unit ABO (test code = O Pos 5732931) UNIT NUMBER (test code = [id number] 934-0) Status (test code = 9557327) [facility] Blood Bank Product (test code RED BLOOD CELLS = 2263) PRODUCT CODE (test code = R0341T67 933-2) [facility] HospitalPO[facility] [id number] 21:03:00 Test Item Value Reference Range Interpretation Comments POC-GLUCOSE METER 87 mg/dL 70-110 : TESTED A T [facility] [address] (BEAKER) (test code = [address], 15[address]) [facility] [place] [address]: Senior Engineering Team Leader/Techni artemio ID = [id number] for Nwad iufu, Holly POCT-GLUCOSE [id number] 17:12:00 Test Item Value Reference Range Interpretation Comments POC-GLUCOSE METER 79 mg/dL 70-110 : TESTED A T [facility] [address] (BEAKER) (test code = [address], 1538) [place] [address]: Senior Engineering Team Leader/Techni artemio ID = [id number] for Nalini Jean Baptiste POCT-GLUCOSE [id number] 11:37:00 Test Item Value Reference Range Interpretation Comments POC-GLUCOSE METER 262 mg/dL 70-110 H : TESTED A T [facility] [address] (BEAKER) (test code [address], = 1538) [place] [address]: Senior Engineering Team Leader/Techni artemio ID = [id number] for Nalini Jean Baptiste COMPREHENSIVE METABOLIC [id number] 06:29:00 Test Item Value Reference Range Interpretation [...] NOT APPLICABLE FOR DIALYSIS PATIEN TS. Senior Engineering Team Leader ID - ADMINCBC W/PLT COUNT & AUTO [id number] 06:12:00 Test Item Value Reference Range Interpretation [...] PERCENT (BEAKER) (test code = 2801) POCT-GLUCOSE [id number] 06:09:00 Test Item Value Reference Range Interpretation Comments POC-GLUCOSE METER 83 mg/dL 70-110 : Notified RN/MD: TESTED (BEAKER) (test code = AT SLS L [address]) [place] [address]: Senior Engineering Team Leader/Techni artemio ID = [id number] for Anahi Sherman POCT-GLUCOSE [id number] 16:26:00 Test Item Value Reference Range Interpretation Comments POC-GLUCOSE METER 182 mg/dL 70-110 H : Notified RN/MD: TESTED (BEAKER) [facility] [address] = [address]38) [place] [address]: Senior Engineering Team Leader/Techni artemio ID = [id number] for Alondra Kelley, [id number] 09:17:00 Test Item Value Reference Range Interpretation Comments Rh Factor (test code = POS 2589) ABO Grouping (test code O PINK TOP 12/24/19 @ 0824 = 2588) [facility] HospitalABORH, [id number] 09:17:00 Test Item Value Reference Range Interpretation Comments Rh Factor (test code = POS 2589) ABO Grouping (test code O PINK TOP 12/24/19 @ 0824 = 2588) [facility] HospitalType and screen, [id number] 07:31:00 Test Item Value Reference Range Interpretation Comments ABO/RH AUTOMATED (BEAKER) (test O POSITIVE ECHO code = 2260) Ab Scrn (test code = 890-4) NEGATIVE ECHO [facility] HospitalType and screen, [id number] 07:31:00 Test Item Value Reference Range Interpretation Comments ABO/RH AUTOMATED (BEAKER) (test O POSITIVE ECHO code = 2260) Ab Scrn (test code = 890-4) NEGATIVE ECHO [facility] HospitalCOMPREHENSIVE METABOLIC [id number] 06:42:00 Test Item Value Reference Range Interpretation [...] NOT APPLICABLE FOR DIALYSIS PATIEN TS. Senior Engineering Team Leader ID - ADMINPOCT-GLUCOSE [id number] 06:23:00 Test Item Value Reference Range Interpretation Comments POC-GLUCOSE METER 88 mg/dL 70-110 : TESTED A T [facility] [address] (BEAKER) (test code = [address], 1538) [facility] [place] [address]: Senior Engineering Team Leader/Techni artemio ID = [id number] for Anne Busby CBC W/PLT COUNT & AUTO [id number] 06:23:00 Test Item Value Reference Range Interpretation [...] 0-0 H PERCENT (BEAKER) (test code = 2802) POCT-GLUCOSE [id number] 21:38:00 Test Item Value Reference Range Interpretation Comments POC-GLUCOSE METER 126 mg/dL 70-110 H : TESTED A T [facility] [address] (BEAKER) (test code [address], = 1538) [facility] [address]: Senior Engineering Team Leader/Techni artemio ID = [id number] for Anne Busby POCT-GLUCOSE [id number] 16:54:00 Test Item Value Reference Range Interpretation Comments POC-GLUCOSE METER 89 mg/dL 70-110 : Notified RN/MD: TESTED (BEAKER) (test code = AT [address]LS [address]) [address], [facility] [address]: Senior Engineering Team Leader/Techni artemio ID = [id number] for Alondra Kelley MR, EXTREMITY, LOWER, JOINT, WITHOUT CONTRAST, [id number] 16:10:00Unlisted Reason for Exam - Click Yes [...] Verified Date/Time: 12/23/2019 16:10:32 Reading Location: [facility] B1 C013X Ortho Consult Reading Room MR lower extremity joint only without IV contrast left [id number] 16:10:00Interface, External Ris In - 12/23/2019 4:12 [...] MDReport Verified Date/Time: 12/23/2019 16:10:32 Reading Location: [facility] B1 C013X Ortho [facility] only without IV [...] Jordan Verified Date/Time: 12/23/2019 16:10:32 Reading Location: [facility] C013X Ortho Consult Reading Room [facility]MR, BRAIN, WITHOUT [id number] 15:43:00Unlisted Reason for Exam - Click Yes [...] Date/Time: 12/23/2019 15:43:24 MR brain without IV [id number] 15:43:00Interface, External Ris In - 12/23/2019 3:45 [...] Signed: Berta Muniz Verified Date/Time: 12/23/2019 15:43:24 [facility] without IV [id number] 15:43:00Interface, External Ris In - 12/23/2019 3:45 [...] Signed: Berta Munizort Verified Date/Time: 12/23/2019 15:43:24 [facility]) 2019-12-23 14:16:00 Test Item Value Reference Range Interpretation Comments SARS-COV2/RT-PCR (test Negative Not Detected, Negative, code = 4323251) See external report for linked test SARS-COV-2 PERFORMING LAB [facility] JANET (test code = 0596688) Negative result for this test determines that [...] 564(g) of the Act.Fact Sheet for Healthcare Providers:https://www.Config Consultantsidel.com/sites/default/files/product/documents/Fact_Shee w_UQ_Dinevncfq_Gzus_YBEG-QwV-4.pdfFact Sheet for Healthcare Patients:https://www.Trefis.com/sites/default/files/product/ documents/Vlov_Wazzq_Riowrwgs_Imem_WDVK-NrM-7.pdfPerforming Laboratory:[facility], [place] [address]Oytlu / lambda light chains, [id number] 12:25:00 Test Item Value Reference Interpretation Comments Range [place] Lt Chain,Free 474.4 mg/L 3.3-19.4 H (test code = 29747-7) Lambda Lt 225.6 mg/L 5.7-26.3 H Chain,Free (test code = 18891-1) [place]/Lambda,Free 2.1 0.26-1.65 H Free annabelle a/lambda (test [...] (test code = Performing Lab ZIA) E[facility] [address] [place] [address] Jaguar Stein MD, PhD, CORI Lab Interpretation Abnormal (test code = 14310-9) [facility] HospitalKappa / lambda light chains, [id number] 12:25:00 Test Item Value Reference Interpretation Comments Range [place] Lt Chain,Free 474.4 mg/L 3.3-19.4 H (test code = 03618-2) Lambda Lt 225.6 mg/L 5.7-26.3 H Chain,Free (test code = 09800-4) [place]/Lambda,Free 2.1 0.26-1.65 H Free annabelle a/lambda (test [...] = Performing Lab ZIA) E[facility] [address] [address] Jaguar Stein MD, PhD, CORI Lab Interpretation Abnormal (test code = 22859-9) [facility] HospitalPOCT-GLUCOSE [id number] 11:27:00 Test Item Value Reference Range Interpretation Comments POC-GLUCOSE METER 189 mg/dL 70-110 H : Notified RN/MD: TESTED (BEAKER) (test code AT [facility] [address] = 1538) [facility] [address]: Senior Engineering Team Leader/Techni artemio ID = [id number] for Ingrid Kelleyberly ARTERIAL DOPPLER LEGS, [id number] 11:22:00Reason for exam:->non healing ulcer , non [...] MDRtieraort Verified Date/Time: 12/23/2019 11:22:31 Reading Location: [facility] Radiology Reading Room Arterial Doppler Legs [id number] 11:22:00 Interface, External Ris In - 12/23/2019 [...] 11:22:31 Reading Location: [facility] Radiology Reading Room [facility] HospitalAr[facility] Doppler Legs [id number] 11:22:00Interface, External Ris In - 12/23/2019 11:24 [...] 11:22:31 Reading Location: [facility] Radiology Reading Room [facility] HospitalCOMPREHENSIVE METABOLIC PANEL 2019-12-23 04:44:00 Test Item [...] NOT APPLICABLE FOR DIALYSIS PATIEN TS. Senior Engineering Team Leader ID - ADMINCBC W/PLT COUNT & AUTO [id number] 04:35:00 Test Item Value Reference Range Interpretation [...] H PERCENT (BEAKER) (test code = 2801) [id number] 04:29:00 Test Item Value Reference Range Interpretation Comments Ammonia (test code = 36 See_Comment [Autom ated 41201-6) message] The system which generated this result transmit merna reference range : 17 - 80 mol/L . The reference range was not u sed to interpret th is result as normal/abnormal . ZIA (test code = ZIA) Senior Engineering Team Leader ID - ADMIN Lab Interpretation Normal (test code = 99390-2) [facility] HospitalAmmonia2020-09-24 04:29:00 Test Item Value Reference Range Interpretation Comments Ammonia (test code = 36 See_Comment [Autom ated 83562-7) message] The system which generated this result transmit merna reference range : 17 - 80 mol/L . The reference range was not u sed to interpret th is result as normal/abnormal . ZIA (test code = ZIA) Senior Engineering Team Leader ID - ADMIN Lab Interpretation Normal (test code = 31914-2) [facility] HospitalAMMONIA2020-09-24 04:29:00 Test Item Value Reference Range Interpretation Comments AMMONIA (BEAKER) (test code = 348) 36 mol/L 17-80 Senior Engineering Team Leader ID - ADMINPOCT-GLUCOSE [id number] 20:45:00 Test Item Value Reference Range Interpretation Comments POC-GLUCOSE METER 95 mg/dL 70-110 : TESTED A T [facility] [address] (BEAKER) (test code = [address], 1538) [place] [address]: Senior Engineering Team Leader/Techni artemio ID = [id number] for Anne Bsuby POCT-GLUCOSE [id number] 17:08:00 Test Item Value Reference Range Interpretation Comments POC-GLUCOSE METER 107 mg/dL 70-110 : TESTED A T [facility] [address] (BEAKER) (test code [address], = 1538) [place] [address]: Senior Engineering Team Leader/Techni artemio ID = [id number] for Jordyn Fonseca POCT-GLUCOSE [id number] 11:55:00 Test Item Value Reference Range Interpretation Comments POC-GLUCOSE METER 135 mg/dL 70-110 H : TESTED A T [facility] [address] (BEAKER) (test code [address], = 1538) [facility] [address]: Senior Engineering Team Leader/Techni artemio ID = [id number] for Jordyn Fonseca Anti-Nuclear Antibody (ROGER)2019-12-22 11:40:00 Test Item Value Reference Range Interpretation Comments ROGER (test code = 03658-9) Positive Negative A ZIA (test code = ZIA) Test performed by IFA method. Lab Interpretation (test Abnormal code = 03219-6) [facility] HospitalANA Titer & [id number] 11:40:00 Test Item Value Reference Range Interpretation Comments ROGER Titer (test code = 44398-5) 1:40 ROGER Pattern (test code = 1781) Speckled [facility] HospitalAnti-Nuclear Antibody (ROGER)2019-12-22 11:40:00 Test Item Value Reference Range Interpretation Comments ROGER (test code = 41185-1) Positive Negative A ZIA (test code = ZIA) Test performed by IFA method. Lab Interpretation (test Abnormal code = 03468-8) [facility] HospitalANA Titer & [id number] 11:40:00 Test Item Value Reference Range Interpretation Comments ROGER Titer (test code = 64044-1) 1:40 ROGER Pattern (test code = 1781) Speckled [facility] HospitalANTI-NUCLEAR ANTIBODY (ROGER)2019-12-22 11:40:00 Test Item Value Reference Range Interpretation Comments ANTI-NUCLEAR ANTIBODY (ROGER) (BEAKER) Positive Negative A (test code = 418) Test performed by IFA method.ROGER TITER AND [id number] 11:40:00 Test Item Value Reference Range Interpretation Comments ROGER TITER (BEAKER) (test code = :40 1541) ROGER PATTERN (BEAKER) (test code = Speckled 1781) POCT-GLUCOSE [id number] 06:44:00 Test Item Value Reference Range Interpretation Comments POC-GLUCOSE METER 92 mg/dL 70-110 : TESTED A T [facility] [address] (BEAKER) (test code = [address], 1538) [facility] [address]: Senior Engineering Team Leader/Techni artemio ID = [id number] for Anne Busby COMPREHENSIVE METABOLIC [id number] 06:35:00 Test Item Value Reference Range Interpretation [...] NOT APPLICABLE FOR DIALYSIS PATIEN TS. Senior Engineering Team Leader ID - ADMINCBC W/PLT COUNT & AUTO [id number] 06:16:00 Test Item Value Reference Range Interpretation [...] PERCENT (BEAKER) (test code = 2801) POCT-GLUCOSE [id number] 20:38:00 Test Item Value Reference Range Interpretation Comments POC-GLUCOSE METER 85 mg/dL 70-110 : TESTED A T [facility] [address] (BEAKER) (test code = [address], 1538) [place] [address]: Senior Engineering Team Leader/Techni artemio ID = [id number] for Anne Busby POCT-GLUCOSE [id number] 18:14:00 Test Item Value Reference Range Interpretation Comments POC-GLUCOSE METER 112 mg/dL 70-110 H : TESTED A T [facility] [address] (BEAKER) (test code [address], = 1538) [place] [address]: Senior Engineering Team Leader/Techni artemio ID = [id number] for Christina r, Berta POCT-GLUCOSE [id number] 13:00:00 Test Item Value Reference Range Interpretation Comments POC-GLUCOSE METER 77 mg/dL 70-110 : TESTED A T [facility] [address] (BEAKER) (test code = [address], 1538) [place] [address]: Senior Engineering Team Leader/Techni artemio ID = [id number] for Christina r, Berta POCT-GLUCOSE [id number] 07:32:00 Test Item Value Reference Range Interpretation Comments POC-GLUCOSE METER 60 mg/dL 70-110 L : TESTED A T [facility] [address] (BEAKER) (test code = [address], 1538) [place] [address]: Senior Engineering Team Leader/Techni artemio ID = [id number] for Marissa Page COMPREHENSIVE METABOLIC [id number] 06:11:00 Test Item Value Reference Range Interpretation [...] NOT APPLICABLE FOR DIALYSIS PATIEN TS. Senior Engineering Team Leader ID - ADMINC-Reactive [id number] 06:06:00 Test Item Value Reference Range Interpretation Comments CRP (test code = 676) 1.63 mg/dL 0-0.5 H ZIA (test code = ZIA) Senior Engineering Team Leader ID - ADMIN Lab Interpretation (test Abnormal code = 62387-6) [facility] HospitalC-Reactive [id number] 06:06:00 Test Item Value Reference Range Interpretation Comments CRP (test code = 676) 1.63 mg/dL 0-0.5 H ZIA (test code = ZIA) Senior Engineering Team Leader ID - ADMIN Lab Interpretation (test Abnormal code = 51766-5) [facility] HospitalC-REACTIVE [id number] 06:06:00 Test Item Value Reference Range Interpretation Comments C-REACTIVE PROTEIN (BEAKER) (test 1.63 mg/dL 0.00-0.50 H code = 676) Senior Engineering Team Leader ID - ADMINPOCT-GLUCOSE [id number] 06:04:00 Test Item Value Reference Range Interpretation Comments POC-GLUCOSE METER 56 mg/dL 70-110 L : Notified RN/MD: TESTED (BEAKER) (test code = AT [facility]LS L [address]) [facility] [address] Senior Engineering Team Leader/Techni artemio ID = [id number] for Nelda Abdi CBC W/PLT COUNT & AUTO [id number] 05:53:00 Test Item Value Reference Range Interpretation [...] (BEAKER) (test code = 2801) U/S, ABDOMINAL, [id number] 22:02:00Reason for exam:->thrombocytopenia / eval for hepatosplenomegalyFINAL [...] MDReport Verified Date/Time: 12/20/2019 22:02:21 US abdomen [id number] 22:02:00Interface, External Ris In - 12/20/2019 10:04 [...] MDReport Verified Date/Time: 12/20/2019 22:02:21 [facility] [id number] 22:02:00Interface, External Ris In - 12/20/2019 10:04 [...] Signed: Hever Marin MDReport Verified Date/Time:12/20/2019 22:02:21 [facility]PO[facility] [id number] 20:36:00 Test Item Value Reference Range Interpretation Comments POC-GLUCOSE METER 74 mg/dL 70-110 : Notified RN/MD: TESTED (BEAKER) (test code = AT SLS L [address]) [facility] [address]: Senior Engineering Team Leader/Techni artemio ID = [id number] for Nelda Abdi POCT-GLUCOSE [id number] 17:50:00 Test Item Value Reference Range Interpretation Comments POC-GLUCOSE METER 72 mg/dL 70-110 : TESTED A T [facility] [address]17 (BEAKER) (test code = [address] [facility] [facility], 1538) [facility] [address]: Senior Engineering Team Leader/Techni artemio ID = [id number] for Berta Servin CT, BRAIN, WITHOUT [id number] 16:08:00Unlisted Reason for Exam - Click Yes [...] Date/Time: 12/20/2019 16:08:40 CT brain without IV [id number] 16:08:00Interface, External Ris In - 12/20/2019 4:10 [...] Signed: Berta Muniz Verified Date/Time: 12/20/2019 16:08:40 [facility] [id number] 16:08:00 Interface, External Ris In 12/20/2019 4:10 [...] Signed: Berta Munizort Verified Date/Time: 12/20/2019 16:08:40 [facility]RAD, [facility]OT, 2 VIEWS, LEFT 2019-12-20 15:15:00Reason [...] 15:15:25 Reading Location: [facility] Radiology Reading Room , FOOT, 2 VIEWS, [id number] 15:15:00Reason for exam:->Rule out osteomyelitisShould this be [...] 15:15:25 Reading Location: [facility] Radiology Reading Room XR foot 2 views [id number] 15:15:00Interface, External Ris In - 12/20/2019 3:17 [...] 15:15:25 Reading Location: [facility] Radiology [facility] views [id number] 15:15:00Interface, External Ris In - 12/20/2019 3:17 [...] 15:15:25 Reading Location: [facility] Radiology Reading [facility] 2 views [id number] 15:15:00Interface, External Ris In - 12/20/2019 3:17 [...] 15:15:25 Reading Location: [facility] Radiology Reading Room [facility]XR foot 2 views [id number] 15:15:00Interface, External Ris In - 12/20/2019 3:17 [...] 15:15:25 Reading Location: [facility] Radiology Reading Room [facility] [id number] 14:56:00 Test Item Value Reference Range Interpretation Comments AMMONIA (BEAKER) (test code = 348) 33 mol/L 17-80 Senior Engineering Team Leader ID - ADMINBlood gas, [id number] 14:41:00 Test Item Value Reference Range Interpretation Comments pH, Arterial (test code 7.33 7.35-7.45 L = 2744-1) pCO2, Arterial (test 58 See_Comment H [Autom ated message] code = 2019-8) The system [facility] generated this result transmit merna reference range : 35 - 45 mmHg. The reference range was not used to interpret this result as normal/abnormal . pO2, Arterial (test 109 See_Comment H [Automa merna message] code = 2703-7) The system [facility] generated this result transmit merna reference [...] % Lab Interpretation Abnormal (test code = 28469-7) [facility] [facility], pudmryqg5284-12-51 14:41:00 Test Item Value Reference Range Interpretation Comments pH, Arterial (test code 7.33 7.35-7.45 L = 2744-1) pCO2, Arterial (test 58 See_Comment H [Autom ated message] code = 2019-8) The system [facility] generated this result transmit merna reference range : 35 - 45 mmHg. The reference range was not used to interpret this result as normal/abnormal . pO2, Arterial (test 109 See_Comment H [Automa merna message] code = 2703-7) The system [facility] generated this result transmit merna reference [...] % Lab Interpretation Abnormal (test code = 66337-1) [facility], [id number] 14:41:00 Test Item Value Reference Range Interpretation [...] code = 1819) 32.0 % Occult blood, [id number] 11:56:00 Test Item Value Reference Range Interpretation Comments Occult blood (test code = 2335-8) Negative Negative Lab Interpretation (test code = Normal 73575-2) [facility] HospitalOcc[facility], [id number] 11:56:00 Test Item Value Reference Range Interpretation Comments Occult blood (test code = 2335-8) Negative Negative Lab Interpretation (test code = Normal 19611-3) [facility] HospitalOCCULT BLOOD, [id number] 11:56:00 Test Item Value Reference Range Interpretation Comments FECAL OCCULT BLOOD (BEAKER) (test Negative Negative code = 618) POCT-GLUCOSE [id number] 11:39:00 Test Item Value Reference Range Interpretation Comments POC-GLUCOSE METER 88 mg/dL 70-110 : TESTED A T [address] (BEAKER) (test code = [address], [address]) [facility] [address]: Senior Engineering Team Leader/Techni artemio ID = [id number] for Kai Phelpsda Yqhjzxswqeq9090-44-81 11:22:00 Test Item Value Reference Range Interpretation Comments Haptoglobin (test code = <8 14-258 L 4542-7) ZIA (test code = ZIA) Senior Engineering Team Leader ID - LEONIE Jay Lab Interpretation (test Abnormal code = 85843-4) [facility] HospitalHaptoglobin2020-[facility] 11:22:00 Test Item Value Reference Range Interpretation Comments Haptoglobin (test code = <8 14-258 L 4542-7) ZIA (test code = ZIA) Senior Engineering Team Leader ID - CAROLINA F Lab Interpretation (test Abnormal code = 83287-0) [facility] HospitalHAPTOGLOBIN2020-09-21 11:22:00 Test Item Value Reference Range Interpretation Comments HAPTOGLOBIN (BEAKER) (test code = < mg/dL 14-258 L 366) Senior Engineering Team Leader ID - CAROLINA FT4, [id number] 11:01:00 Test Item Value Reference Range Interpretation Comments Free T4 (test code = 0.52 ng/dL 0.9-1.8 L 3024-7) ZIA (test code = ZIA) Senior Engineering Team Leader ID - ADMIN Lab Interpretation (test Abnormal code = 19416-0) [facility] HospitalT4, [id number] 11:01:00 Test Item Value Reference Range Interpretation Comments Free T4 (test code = 0.52 ng/dL 0.9-1.8 L 3024-7) ZIA (test code = ZIA) Senior Engineering Team Leader ID - ADMIN Lab Interpretation (test Abnormal code = 24698-6) [facility] HospitalT[facility], [id number] 11:01:00 Test Item Value Reference Range Interpretation Comments FREE T4 (BEAKER) (test code = 655) 0.52 ng/dL 0.90-1.80 L Senior Engineering Team Leader ID - ADMINPeripheral Blood Smear - Path [id number] 08:19:00 Test Item Value Reference Range Interpretation [...] Griffith M.D. code = 2849) (electronic signature) [facility] HospitalPeripheral Blood Smear - Path [id number] 08:19:00 Test Item Value Reference Range Interpretation [...] Griffith M.D. code = 2849) (electronic signature) [facility] HospitalPERIPHERAL BLOOD SMEAR - PATHOLOGIST REVIEW 2019-12-20 08:19:00 Test Item Value Reference Range Interpretation Comments RBC MORPHOLOGY Target Cells (BEAKER) (test code = 2846) RBC MORPHOLOGY Basophilic Stippling (BEAKER) (test code = 04530) RBC MORPHOLOGY Nucleated Red Blood Cells (BEAKER) (test code = 63083) PERIPHERAL SMR Normochromic normocytic REVIEW (BEAKER) anemia with a few target (test code = 2640) cells, nucleated RBCs and basophilic stippling. No increase in schistocytes. WBCs normal in number and morphology. Thrombocytopenia with normal platelet morphology. [id number]-[id number] Jovita Griffith M.D. 2 (BEAKER) (test (electronic signature) code = 2849) Vitamin B12 and [id number] 06:37:00 Test Item Value Reference Range Interpretation Comments Vitamin B12 (test 1431 pg/mL 211-911 H code = 2132-9) Folate (test code = 17.00 ng/mL See_Comment [Automa merna 2284-8) message] The system which generated this result transmit merna reference range : >=5.4. The reference range was not used to interpret this result as normal/abnormal . ZIA (test code = ZIA) Senior Engineering Team Leader ID - ADMIN Lab Interpretation Abnormal (test code = 33566-9) [facility] HospitalVitamin B12 and Akbtvi2336-37-18 06:37:00 Test Item Value Reference Range Interpretation Comments Vitamin B12 (test 1431 pg/mL 211-911 H code = 2132-9) Folate (test code = 17.00 ng/mL See_Comment [Automa merna 2284-8) message] The system which generated this result transmit merna reference range : >=5.4. The reference range was not used to interpret this result as normal/abnormal . ZIA (test code = ZIA) Senior Engineering Team Leader ID - ADMIN Lab Interpretation Abnormal (test code = 73080-5) [facility] HospitalVITAMIN B12 AND [id number] 06:37:00 Test Item Value Reference Range Interpretation Comments VITAMIN B12 (BEAKER) (test code = 1431 pg/mL 211-911 H 774) FOLATE (BEAKER) (test code = 362) 17.00 ng/mL >=5.4 Senior Engineering Team Leader ID - ADMINPOCT-GLUCOSE COCGY1146-04-93 06:32:00 Test Item Value Reference Range Interpretation Comments POC-GLUCOSE METER 79 mg/dL 70-110 : TESTED A T [address] (BEAKER) (test code = [address], 15[address]) [facility] [place] [address]: Senior Engineering Team Leader/Techni artemio ID = [id number] for Anahi Shermna Rnxlwztg5708-99-95 06:25:00 Test Item Value Reference Range Interpretation Comments Ferritin (test code = 595.00 ng/mL 10-291 H 2276-4) ZIA (test code = ZIA) Senior Engineering Team Leader ID - ADMIN Lab Interpretation (test Abnormal code = 08882-3) [facility]/Free T4 If Zvyjgjhvs1443-56-33 06:25:00 Test Item Value Reference Range Interpretation Comments TSH (test code = 21.210 See_Comment H [Automated 38828-3) message] The system which generated this result transmit merna reference range : 0.350 - 5.500 uIU/mL. The reference range was not used to interpret this result as normal/abnormal . ZIA (test code = ZIA) Senior Engineering Team Leader ID - ADMIN Lab Interpretation Abnormal (test code = 71331-3) [facility] HospitalFerritin2020-09-21 06:25:00 Test Item Value Reference Range Interpretation Comments Ferritin (test code = 595.00 ng/mL 10-291 H 2276-4) ZIA (test code = ZIA) Senior Engineering Team Leader ID - ADMIN Lab Interpretation (test Abnormal code = 58261-9) [facility]/Free T4 If Ripioojnz3140-68-20 06:25:00 Test Item Value Reference Range Interpretation Comments TSH (test code = 21.210 See_Comment H [Automated 14103-4) message] The system which generated this result transmit merna reference range : 0.350 - 5.500 uIU/mL. The reference range was not used to interpret this result as normal/abnormal . ZIA (test code = ZIA) Senior Engineering Team Leader ID - ADMIN Lab Interpretation Abnormal (test code = 01992-6) [facility] HospitalFERRITIN2020-09-21 06:25:00 Test Item Value Reference Range Interpretation Comments FERRITIN (BEAKER) (test code = 595.00 ng/mL 10.00-291.00 H 361) Senior Engineering Team Leader ID - ADMINTSH/FREE T4 IF [id number] 06:25:00 Test Item Value Reference Range Interpretation Comments THYROID STIMULATING HORMONE 21.210 uIU/mL 0.350-5.500 H (BEAKER) (test code = 772) Senior Engineering Team Leader ID - UCJQVKemqdqojop4463-41-89 06:06:00 Test Item Value Reference Range Interpretation Comments Fibrinogen (test code = 340 mg/dL 731-386 3055-7) ZIA (test code = ZIA) Final Information (Auto Output) Lab Interpretation (test Normal code = 37872-4) [facility] HospitalPT/[id number] 06:06:00 Test Item Value Reference Interpretation Comments Range Protime (test code = 13.5 See_Comment H [Autom ated 3812-2) message] The system which generated this result transmitted reference range : 9.3 - 12.0 sec. The reference range was not used to interpret this result as normal/abnormal . INR (test code = 1.25 See_Comment [Automated 9971-6) message] The system which generated this result transmitted reference range : <=5.90. The reference range was not used to interpret this result as normal/abnormal . PTT (test code = 38.2 See_Comment H [Automated 52516-4) message] The system which generated this result [...] Output) Lab Interpretation Abnormal (test code = 90274-7) [facility] HospitalFibrinogen2020-09-21 06:06:00 Test Item Value Reference Range Interpretation Comments Fibrinogen (test code = 340 mg/dL 583-075 4010-7) ZIA (test code = ZIA) Final Information (Auto Output) Lab Interpretation (test Normal code = 93984-0) [facility] HospitalPT/[id number] 06:06:00 Test Item Value Reference Interpretation Comments Range Protime (test code = 13.5 See_Comment H [Autom ated 5902-2) message] The system which generated this result transmitted reference range : 9.3 - 12.0 sec. The reference range was not used to interpret this result as normal/abnormal . INR (test code = 1.25 See_Comment [Automated 5001-6) message] The system which generated this result transmitted reference range : <=5.90. The reference range was not used to interpret this result as normal/abnormal . PTT (test code = 38.2 See_Comment H [Automated 48473-2) message] The system which generated this result [...] Output) Lab Interpretation Abnormal (test code = 36414-5) [facility] HospitalFIBRINOGEN2020-09-21 06:06:00 Test Item Value Reference Range Interpretation Comments FIBRINOGEN LEVEL (BEAKER) (test 340 mg/dL 200-400 code = 658) Final Information (Auto Output)PT/[id number] 06:06:00 Test Item Value Reference Range Interpretation [...] 2502-3) ZIA (test code = ZIA) Senior Engineering Team Leader ID - ADMIN Lab Interpretation (test Abnormal code = 19989-5) [facility] HospitalIron, TIBC, % sat. (without ferritin)2019-12-20 05:59:00 Test Item Value Reference Range Interpretation Comments Iron (test code = 2498-4) 92.0 ug/dL 45-170 TIBC (test code = 2500-7) 151 ug/dL 250-550 L Iron % Saturation (test 61 % 20-55 H code = 2502-3) ZIA (test code = ZIA) Senior Engineering Team Leader ID - ADMIN Lab Interpretation (test Abnormal code = 03097-7) [facility], % SAT. (WITHOUT FERRITIN)2019-12-20 05:59:00 Test Item Value Reference Range Interpretation Comments IRON (BEAKER) (test code = 547) 92.0 ug/dL 45.0-170.0 TOTAL IRON BINDING CAPACITY 151 ug/dL 250-550 L (BEAKER) (test code = 769) IRON % SATURATION (2) (BEAKER) 61 % 20-55 H (test code = 2590) Senior Engineering Team Leader ID - ADMINCOMPREHENSIVE METABOLIC [id number] 05:55:00 Test Item Value Reference Range Interpretation [...] NOT APPLICABLE FOR DIALYSIS PATIEN TS. Senior Engineering Team Leader ID - JDNYQV-avfon3306-31-21 05:46:00 Test Item Value Reference Range Interpretation Comments D-Dimer, Quant (test 1.09 mg/L <0.50 H code = 53400-9) ZIA (test code = ZIA) REGARDING D-DIMER RESULTS: The 98% NPV (Negative Predictive Value) for DVT/PE exclusion is 0.50 mg/L FEU as suggested by the spray gun repairer helper and as approved by the FDA.Final Information (Auto Output) Lab Interpretation (test Abnormal code = 65581-2) [facility] HospitalD-jeyfr4482-46-92 05:46:00 Test Item Value Reference Range Interpretation Comments D-Dimer, Quant (test 1.09 mg/L <0.50 H code = 36160-2) ZIA (test code = ZIA) REGARDING D-DIMER RESULTS: The 98% NPV (Negative Predictive Value) for DVT/PE exclusion is 0.50 mg/L FEU as suggested by the spray gun repairer helper and as approved by the FDA.Final Information (Auto Output) Lab Interpretation (test Abnormal code = 83213-3) [facility] HospitalD-ZXSOD4152-70-36 05:46:00 Test Item Value Reference Range Interpretation Comments D-DIMER QUANTITATIVE (BEAKER) (test 1.09 mg/L <0.50 H code = 671) REGARDING D-DIMER RESULTS: The 98% NPV (Negative Predictive Value) for DVT/PE exclusion is 0.50 mg/LFEU as suggested by the spray gun repairer helper and as approved by the FDA.Final Information (Auto Output)Reticulocyte ejhxy5444-02-17 05:42:00 Test Item Value Reference Range Interpretation Comments % Retic (test code = 91699-4) 5.9 % 0.4-2.9 H Lab Interpretation (test code = Abnormal 32734-8) [facility] HospitalReticulocyte nlisn4348-88-27 05:42:00 Test Item Value Reference Range Interpretation Comments % Retic (test code = 07158-5) 5.9 % 0.4-2.9 H Lab Interpretation (test code = Abnormal 90034-2) [facility] HospitalRETICULOCYTE [id number] 05:42:00 Test Item Value Reference Range Interpretation Comments RETICULOCYTE COUNT PCT (BEAKER) (test 5.9 % 0.4-2.9 H code = 575) CBC W/PLT COUNT & AUTO [id number] 05:33:00 Test Item Value Reference Range Interpretation [...] 107-206 ZIA (test code = ZIA) Senior Engineering Team Leader ID - ADMIN Lab Interpretation (test Normal code = 41263-8) [facility] HospitalLactate dehydrogenase (LDH)2019-12-19 21:19:00 Test Item Value Reference Range Interpretation Comments LDH (test code = 2532-0) 178 U/L 107-206 ZIA (test code = ZIA) Senior Engineering Team Leader ID - ADMIN Lab Interpretation (test Normal code = 32640-6) [facility] HospitalLACTATE DEHYDROGENASE (LDH)2019-12-19 21:19:00 Test Item Value Reference Range Interpretation Comments LACTATE DEHYDROGENASE (BEAKER) (test 178 U/L 107-206 code = 635) Senior Engineering Team Leader ID - ADMINPOCT-GLUCOSE [id number] 20:47:00 Test Item Value Reference Range Interpretation Comments POC-GLUCOSE METER 102 mg/dL 70-110 : TESTED A T [address] (BEAKER) (test code [address], = 1538) [facility] 77 [address]: Senior Engineering Team Leader/Techni artemio ID = [id number] for Anahi Sherman POCT-GLUCOSE [id number] 16:18:00 Test Item Value Reference Range Interpretation Comments POC-GLUCOSE METER 96 mg/dL 70-110 : TESTED A T [address] (BEAKER) (test code = [address], 1538) [facility] 77 [address]: Senior Engineering Team Leader/Techni artemio ID = [id number] for Nalini Jean Baptiste Basic Metabolic Zeydp9216-08-05 06:26:00 Test Item Value Reference Range Interpretation Comments Sodium (test code = 138 meq/L 249-314 1560-2) Potassium (test code = 3.9 meq/L 3.6-5.5 2823-3) Chloride (test code = 99 meq/L 98-106 2075-0) CO2 (test code = 30 meq/L 20-29 H 2028-9) BUN (test code = 47 mg/dL 10-26 H 3094-0) Creatinine (test code 3.04 mg/dL 0.5-1.2 H = 2160-0) Glucose (test code = 82 mg/dL 70-110 2345-7) Calcium (test code = 7.9 mg/dL 8.5-10.5 L 51018-9) EGFR (test code = 15 mL/min/1.73 [place] [address]-3) NOT ACCURATE CREATININE CLEARANCE IN PREDICTING GLOMERULAR FILTRATION RATE . ESTIMATED GFR I S NOT APPLICABLE FOR DIALYSIS PATIENTS. ZIA (test code = ZIA) Senior Engineering Team Leader ID - ADMIN Lab Interpretation Abnormal (test code = 68534-8) [facility] HospitalBasic Metabolic [id number] 06:26:00 Test Item Value Reference Range Interpretation Comments Sodium (test code = 138 meq/L 690-375 5909-2) Potassium (test code = 3.9 meq/L 3.6-5.5 2823-3) Chloride (test code = 99 meq/L 98-106 2075-0) CO2 (test code = 30 meq/L 20-29 H 2028-9) BUN (test code = 47 mg/dL 10-26 H 3094-0) Creatinine (test code 3.04 mg/dL 0.5-1.2 H = 2160-0) Glucose (test code = 82 mg/dL 70-110 2345-7) Calcium (test code = 7.9 mg/dL 8.5-10.5 L 86756-2) EGFR (test code = 15 mL/min/1.73 [place] [address]-9) NOT ACCURATE CREATININE CLEARANCE IN PREDICTING GLOMERULAR FILTRATION RATE . ESTIMATED GFR I S NOT APPLICABLE FOR DIALYSIS PATIENTS. ZIA (test code = ZIA) Senior Engineering Team Leader ID - ADMIN Lab Interpretation Abnormal (test code = 15725-6) [facility] METABOLIC [id number] 06:26:00 Test Item Value Reference Range Interpretation [...] NOT APPLICABLE FOR DIALYSIS PATIEN TS. Senior Engineering Team Leader ID - ADMINCBC W/PLT COUNT & AUTO [id number] 06:04:00 Test Item Value Reference Range Interpretation [...] PERCENT (BEAKER) (test code = 2801) POCT-GLUCOSE [id number] 05:35:00 Test Item Value Reference Range Interpretation Comments POC-GLUCOSE METER 85 mg/dL 70-110 : Notified RN/MD: TESTED (BEAKER) (test code = [address]) [place] [id number]: Senior Engineering Team Leader/Techni artemio ID = [id number] for Siddhartha Healyar POCT-GLUCOSE [id number] 21:46:00 Test Item Value Reference Range Interpretation Comments POC-GLUCOSE METER 125 mg/dL 70-110 H : Notified RN/MD: TESTED (BEAKER) (test code AT [address] = 1538) [place] [id number]: Senior Engineering Team Leader/Techni artemio ID = [id number] for Niraj , Zonia POCT-GLUCOSE [id number] 16:17:00 Test Item Value Reference Range Interpretation Comments POC-GLUCOSE METER 103 mg/dL 70-110 : TESTED A T [address] (BEAKER) (test code [address] [facility], = 1538) [place] [address]: Senior Engineering Team Leader/Techni artemio ID = [id number] for Akhil rs, Shelea POCT-GLUCOSE [id number] 07:56:00 Test Item Value Reference Range Interpretation Comments POC-GLUCOSE METER 111 mg/dL 70-110 H : TESTED A T [address] (BEAKER) (test code [address], = 1538) [place] [address]198: Senior Engineering Team Leader/Techni artemio ID = [id number] for Akhil rs, Shelea POCT-GLUCOSE [id number] 06:25:00 Test Item Value Reference Range Interpretation Comments POC-GLUCOSE METER 57 mg/dL 70-110 L : TESTED A T [address] (BEAKER) (test code = [address], 1538) [place] [address]: Senior Engineering Team Leader/Techni artemio ID = [id number] for Brow nDamianen POCT-GLUCOSE [id number] 21:55:00 Test Item Value Reference Range Interpretation Comments POC-GLUCOSE METER 76 mg/dL 70-110 : TESTED A T [address] (BEAKER) (test code = [address], 1538) [place] [address]198: Senior Engineering Team Leader/Techni artemio ID = [id number] for Brow n, Anne POCT-GLUCOSE [id number] 18:03:00 Test Item Value Reference Range Interpretation Comments POC-GLUCOSE METER 81 mg/dL 70-110 : TESTED A T [address] (BEAKER) (test code = [address], 1538) [facility] 77 [address]: Senior Engineering Team Leader/Techni artemio ID = [id number] for Ericka Daniel POCT-GLUCOSE [id number] 12:33:00 Test Item Value Reference Range Interpretation Comments POC-GLUCOSE METER 73 mg/dL 70-110 : TESTED A T [address] (BEAKER) (test code = [address], 1538) [facility] 77 [address]: Senior Engineering Team Leader/Techni artemio ID = [id number] for Marisela Bolton Hepatitis B surface [id number] 10:49:00 Test Item Value Reference Range Interpretation Comments Hep B S Ab (test code <8.0 See_Comment [Auto mated = 40992-7) message] The system which generated this result transmit merna reference range : <8.0 mIU/mL. Th e reference range was not used to interpret this result as normal/abnormal . ZIA (test code = ZIA) Senior Engineering Team Leader ID - LEONIE Jay Lab Interpretation Normal (test code = 99587-0) [facility] HospitalHepatitis B surface [id number] 10:49:00 Test Item Value Reference Range Interpretation Comments Hep B S Ab (test code <8.0 See_Comment [Auto mated = 40941-9) message] The system which generated this result transmit merna reference range : <8.0 mIU/mL. Th e reference range was not used to interpret this result as normal/abnormal . ZIA (test code = ZIA) Senior Engineering Team Leader ID - LEONIE Jay Lab Interpretation Normal (test code = 67837-2) [facility] HospitalHEPATITIS B SURFACE [id number] 10:49:00 Test Item Value Reference Range Interpretation Comments HEPATITIS B SURFACE ANTIBODY < mIU/mL <8.0 (BEAKER) (test code = 647) Senior Engineering Team Leader ID - LEONIE FHepatitis B core antibody, [id number] 10:43:00 Test Item Value Reference Range Interpretation Comments Hep B Core Total Ab Nonreactive Nonreactive (test code = 58183-2) ZIA (test code = ZIA) Senior Engineering Team Leader ID Bijal Jay Lab Interpretation (test Normal code = 48079-9) [facility] C [id number] 10:43:00 Test Item Value Reference Range Interpretation Comments Hepatitis C Ab (test Nonreactive Nonreactive code = 17423-5) ZIA (test code = ZIA) Senior Engineering Team Leader DIONICIO Jay Lab Interpretation (test Normal code = 22442-4) [facility] B core antibody, [id number] 10:43:00 Test Item Value Reference Range Interpretation Comments Hep B Core Total Ab Nonreactive Nonreactive (test code = 69386-2) ZIA (test code = ZIA) Senior Engineering Team Leader ID Bijal Jay Lab Interpretation (test Normal code = 98988-2) [facility] C [id number] 10:43:00 Test Item Value Reference Range Interpretation Comments Hepatitis C Ab (test Nonreactive Nonreactive code = 03074-4) ZIA (test code = ZIA) Senior Engineering Team Leader DIONICIO Jay Lab Interpretation (test Normal code = 75670-9) [facility] C [id number] 10:43:00 Test Item Value Reference Range Interpretation Comments HEPATITIS C ANTIBODY (BEAKER) Nonreactive Nonreactive (test code = 367) Senior Engineering Team Leader DIONICIO HADLEY FHEPATITIS B CORE ANTIBODY, [id number] 10:43:00 Test Item Value Reference Range Interpretation Comments HEPATITIS B CORE TOTAL ANTIBODY Nonreactive Nonreactive (BEAKER) (test code = 497) Senior Engineering Team Leader ID Bijal HADLEY FPOCT-GLUCOSE [id number] 06:31:00 Test Item Value Reference Range Interpretation Comments POC-GLUCOSE METER 67 mg/dL 70-110 L : TESTED A T [address] (BEAKER) (test code = [address], 1538) [facility] [address]: Senior Engineering Team Leader/Techni artemio ID = [id number] for Anne Busby COMPREHENSIVE METABOLIC [id number] 05:10:00 Test Item Value Reference Range Interpretation [...] NOT APPLICABLE FOR DIALYSIS PATIEN TS. Senior Engineering Team Leader ID - ADMINCBC W/PLT COUNT & AUTO [id number] 04:36:00 Test Item Value Reference Range Interpretation [...] PERCENT (BEAKER) (test code = 2801) POCT-GLUCOSE [id number] 21:14:00 Test Item Value Reference Range Interpretation Comments POC-GLUCOSE METER 79 mg/dL 70-110 : TESTED A T [address] (BEAKER) (test code = [address] [facility], 1538) [facility] 77 [address]: Senior Engineering Team Leader/Techni artemio ID = [id number] for Anne Busby POCT-GLUCOSE [id number] 18:35:00 Test Item Value Reference Range Interpretation Comments POC-GLUCOSE METER 68 mg/dL 70-110 L : Notified RN/MD: TESTED (BEAKER) (test code = [address]) [place] [address]: Senior Engineering Team Leader/Techni artemio ID = [id number] for Alondra Kelley SARS-COV2/RT-PCR ([facility])2019-12-16 17:53:00 Test Item Value Reference Range Interpretation Comments SARS-COV2/RT-PCR (test Negative Not Detected, Negative, code = 1754292) See external report for linked test SARS-COV-2 [facility] (test code = 5045520) Negative result for this test determines that [...] 564(g) of the Act.Fact Sheet for Healthcare Providers:https://www.[employer]/sites/default/files/product/documents/Fact_Shee p_DV_Ytfvrvtdl_Slpf_CVOU-HsJ-1.pdfFact Sheet for Healthcare Patients:https://www.[employer]/sites/default/files/product/ documents/Fvdl_Hctak_Ddlpgfxd_Aohn_PEMZ-VvE-9.pdfPerforming Laboratory:[facility], [place] [address]Joojpkrkl B surface wcnizov6881-09-77 16:57:00 Test Item Value Reference Range Interpretation Comments HBsAg Screen (test code = Nonreactive Nonreactive 5195-3) ZIA (test code = ZIA) Senior Engineering Team Leader ID - ADMIN Lab Interpretation (test Normal code = 42020-7) [facility]Hep[facility] surface [id number] 16:57:00 Test Item Value Reference Range Interpretation Comments HBsAg Screen (test code = Nonreactive Nonreactive 5195-3) ZIA (test code = ZIA) Senior Engineering Team Leader ID - ADMIN Lab Interpretation (test Normal code = 46225-6) [facility] B SURFACE [id number] 16:57:00 Test Item Value Reference Range Interpretation Comments HEPATITIS B SURFACE ANTIGEN (2) Nonreactive Nonreactive (BEAKER) (test code = 2585) Senior Engineering Team Leader ID - ADMINANG, TUNNELED CATHETER [id number] 15:06:00Reason for Central Line/PICC?->Need for hemodialysis accessReason [...] the patient's medical record by the nurse. Aerial Erector: Soto Arias M.D. Slip Laster: none. Approach: Right internal jugular vein Estimated [...] needle into the right atrium. A 4 Cambodian micropuncture sheath was placed and a 0.035 wire was advanced into the IVC. A subcutaneous tunnel was created in the left anterior chest wall by blunt dissection. A 23 cm tip to cuff 15.5 Cambodian Duraflow 2 catheter was brought through the [...] 12/16/2019 15:06:45Reading Location: [facility] Radiology Reading Room IR Tunneled Catheter [id number] 15:06:00 Interface, External Ris In - 12/16/2019 [...] the patient's medical record by the nurse. Aerial Erector: Soto Arias M.D. Ass istant: none. Approach: [...] A 23 cm tip to cuff 15.5 Cambodian Duraflow 2 catheter was brought through the [...] the procedure well [facility]. Results: Spot radiograph of the chest demonstrates the new dialysis catheter to lie in theexpected position with its tip overlying the superior right atrium. Impression: 1. Successful, uncomplicated placement of a left internal jugular tunneled dialysiscatheter using sonographic and fluoroscopic guidance and conscious sedation. Signed: Soto Arias MDReport Verified Date/Time: 12/16/2019 15:06:45 Reading Location: [facility] 2019-12-16 15:06:00Interface, External [...] the patient's medical record by the nurse. Aerial Erector: Soto Arias M.D. Slip Laster: none. Approach: Right internal jugular vein Estimated [...] A 23 cm tip to cuff 15.5 Cambodian Duraflow 2 catheter was brought through the [...] 15:06:45 Reading Location: [facility] Radiology [facility] [id number] 14:59:00 Test Item Value Reference Range Interpretation Comments POC-GLUCOSE METER 70 mg/dL 70-110 : Notified RN/MD: [facility]ED [facility] (test code = AT [facility] L [address] [address]) [facility] [address]: Senior Engineering Team Leader/Techni artemio ID = [id number] for romero Alondra kim POCT-GLUCOSE [id number] 11:13:00 Test Item Value Reference Range Interpretation Comments POC-GLUCOSE METER 72 mg/dL 70-110 : Notified RN/MD: TESTED ([facility]) (test code = AT [facility] L [address] [address]) [facility] [address]: Senior Engineering Team Leader/Techni artemio ID = [id number] for romero julio Alondra RAD, CHEST, 1 VIEW, NON [id number] 09:20:00Reason for exam:->fallShould this be performed at [...] 09:20:06 Reading Location: [facility] Radiology Reading Room XR chest 1 view portable / [id number] 09:20:00Interface, External Ris In - 12/16/2019 9:22 [...] 09:20:06 Reading Location: [facility] Radiology Reading Room Electronically yeimi d by: SOTO ARIAS MD on 12/16/2019 09:20 [facility] XR chest 1 view portable / [id number] 09:20:00Interface, External Ris In - 12/16/2019 9:22 [...] 09:20:06 Reading Location: [facility] Radiology [facility] 2019-12-16 06:03:00 Test Item Value Reference Range Interpretation Comments POC-GLUCOSE METER 74 mg/dL 70-110 : Notified RN/MD: TESTED (BEAKER) (test code = AT [facility] [address] [address]) [facility] [address]: Senior Engineering Team Leader/Techni artemio ID = [id number] for Zonia Healy BASIC METABOLIC [id number] 05:08:00 Test Item Value Reference Range Interpretation [...] S NOT APPLICABLE FOR DIALYSIS PATIISA GUAMAN. Senior Engineering Team Leader ID - ADMINProthrombin time/[id number] 05:01:00 Test Item Value Reference Interpretation Comments [...] Output) Lab Interpretation Abnormal (test code = 96455-9) [facility][id number] 05:01:00 Test Item Value Reference Interpretation Comments [...] Output) Lab Interpretation Abnormal (test code = 62353-8) [facility]/[id number] 05:01:00 Test Item Value Reference Range Interpretation [...] Information (Auto Output)CBC W/PLT COUNT & AUTO [id number] 04:46:00 Test Item Value Reference Range Interpretation [...] PERCENT (BEAKER) (test code = 2801) POCT-GLUCOSE [id number] 17:13:00 Test Item Value Reference Range Interpretation Comments POC-GLUCOSE METER 220 mg/dL 70-110 H TESTED AT [facility] 6720 (BEAKER) (test code = [facility] 1538) [address] BASIC METABOLIC [id number] 15:47:00 Test Item Value Reference Range Interpretation [...] NOT APPLICABLE FOR DIALYSIS PATIEN TS. POCT-GLUCOSE [id number] 11:30:00 Test Item Value Reference Range Interpretation Comments POC-GLUCOSE METER 268 mg/dL 70-110 H TESTED AT [facility] 6720 (BEAKER) (test code = JULIANO Osborne [place] 1538) [address] POCT-GLUCOSE [id number] 07:08:00 Test Item Value Reference Range Interpretation Comments POC-GLUCOSE METER 208 mg/dL 70-110 H TESTED AT [facility] 6720 (BEAKER) (test code = JULIANO Osborne [place] 1538) [address] CALCIUM, [id number] 06:47:00 Test Item Value Reference Range Interpretation Comments CALCIUM IONIZED (BEAKER) (test 1.11 mmol/L 1.12-1.27 L code = 698) PH, BLOOD (BEAKER) (test code = 7.40 1810) BASIC METABOLIC [id number] 06:40:00 Test Item Value Reference Range Interpretation [...] S NOT APPLICABLE FOR DIALYSIS PATIEN TS. [id number] 06:33:00 Test Item Value Reference Range Interpretation Comments PHOSPHORUS (BEAKER) (test code = 5.1 mg/dL 2.3-4.7 H 604) [id number] 06:33:00 Test Item Value Reference Range Interpretation Comments MAGNESIUM (BEAKER) (test code = 2.0 mg/dL 1.6-2.6 627) LACTIC ACID, VENOUS, WHOLE [id number] 06:02:00 Test Item Value Reference Range Interpretation Comments LACTATE BLOOD VENOUS (2) (BEAKER) 0.8 mmol/L 0.5-2.2 (test code = 2872) Effective 08/02/2015: Units/Reference Range ChangeNew: 0.5-2.2 mmol/L Previous: 5-20 mg/dLCBC W/PLT COUNT & AUTO [id number] 05:54:00 Test Item Value Reference Range Interpretation [...] PERCENT (BEAKER) (test code = 2801) POCT-GLUCOSE [id number] 21:30:00 Test Item Value Reference Range Interpretation Comments POC-GLUCOSE METER 248 mg/dL 70-110 H TESTED AT [facility] 6720 [facility] (test code = [place] 1538) [address] RAD, [id number] 21:22:00Reason for exam:->fall, tailbone painFINAL REPORT RAD, [...] MDReport Verified Date/Time: 09/04/2017 21:22:03 Reading Location: [address] Reading Room POCT-GLUCOSE [id number] 17:37:00 Test Item Value Reference Range Interpretation Comments POC-GLUCOSE METER 222 mg/dL 70-110 H TESTED AT [place] [address] (BEAKER) (test code = JULIANO Osborne [place] 1538) [address] POCT-GLUCOSE [id number] 13:55:00 Test Item Value Reference Range Interpretation Comments POC-GLUCOSE METER 194 mg/dL 70-110 H TESTED AT [place] [address] (BEAKER) (test code = JULIANO Osborne [place] 1538) [address] POCT-GLUCOSE [id number] 12:34:00 Test Item Value Reference Range Interpretation Comments POC-GLUCOSE METER 229 mg/dL 70-110 H TESTED AT [place] [address] (BEAKER) (test code = JULIANO Osborne [place] 1538) [address] POCT-GLUCOSE [id number] 08:00:00 Test Item Value Reference Range Interpretation Comments POC-GLUCOSE METER 159 mg/dL 70-110 H TESTED AT [place] [address] (BEAKER) (test code = JULIANO Osborne [facility] 1538) [address] CALCIUM, [id number] 06:00:00 Test Item Value Reference Range Interpretation Comments CALCIUM IONIZED (BEAKER) (test 1.05 mmol/L 1.12-1.27 L code = 698) PH, BLOOD (BEAKER) (test code = 7.45 1810) [id number] 05:59:00 Test Item Value Reference Range Interpretation Comments PHOSPHORUS (BEAKER) (test code = 4.8 mg/dL 2.3-4.7 H 604) [id number] 05:59:00 Test Item Value Reference Range Interpretation Comments MAGNESIUM (BEAKER) (test code = 2.0 mg/dL 1.6-2.6 627) BASIC METABOLIC [id number] 05:59:00 Test Item Value Reference Range Interpretation [...] = 380) CBC W/PLT COUNT & AUTO [id number] 05:32:00 Test Item Value Reference Range Interpretation [...] PERCENT (BEAKER) (test code = 2801) POCT-GLUCOSE [id number] 20:36:00 Test Item Value Reference Range Interpretation Comments POC-GLUCOSE METER 211 mg/dL 70-110 H TESTED AT [place] [address] ([facility]) (test code = [facility] 1538) [address] CREATININE, RANDOM [id number] 19:55:00 Test Item Value Reference Range Interpretation Comments CREATININE URINE (BEAKER) (test 16.1 mg/dL code = 375) Reference Range: No NormalsPROTEIN, RANDOM [id number] 19:55:00 Test Item Value Reference Range Interpretation Comments PROTEIN, URINE (BEAKER) (test code 102 mg/dL 0-14 H = 1569) POCT-GLUCOSE [id number] 18:04:00 Test Item Value Reference Range Interpretation Comments POC-GLUCOSE METER 177 mg/dL 70-110 H TESTED AT [place] [address] ([facility]) (test code = [facility] 1538) [address] POCT-GLUCOSE [id number] 11:59:00 Test Item Value Reference Range Interpretation Comments POC-GLUCOSE METER 244 mg/dL 70-110 H TESTED AT [place] [address] ([facility]) (test code = [facility] 1538) [address] POCT-GLUCOSE [id number] 07:53:00 Test Item Value Reference Range Interpretation Comments POC-GLUCOSE METER 160 mg/dL 70-110 H TESTED AT [facility] 6720 (BEAKER) (test code = [place] 1538) [address] BASIC METABOLIC [id number] 05:29:00 Test Item Value Reference Range Interpretation [...] S NOT APPLICABLE FOR DIALYSIS PATIEN TS. [id number] 05:21:00 Test Item Value Reference Range Interpretation Comments MAGNESIUM (BEAKER) (test code = 2.1 mg/dL 1.6-2.6 627) HEPATIC FUNCTION [id number] 05:21:00 Test Item Value Reference Range Interpretation [...] code = 23 U/L 6-55 347) TROPONIN [id number] 05:18:00 Test Item Value Reference Range Interpretation [...] PERCENT (BEAKER) (test code = 2801) TROPONIN [id number] 23:40:00 Test Item Value Reference Range Interpretation [...] acidosis, acute neurological disease, and persistent tachyarrhythmia.POCT-GLUCOSE [id number] 22:51:00 Test Item Value Reference Range Interpretation Comments POC-GLUCOSE METER 214 mg/dL 70-110 H TESTED AT [facility] 6720 ([facility]) (test code = JULIANO Osborne [facility] 1538) [address] RAD, CHEST, 1 VIEW, NON [id number] 21:42:00Reason for exam:->CHEST PAINShould this be performed at the bedside?->YesFINAL REPORT RAD, CHEST, 1 VIEW, NON DEPT INDICATION: CHEST PAIN COMPARISON: Chest x-ray 4 weeks ago TECHNIQUE: Single frontal view of the chest. IMPRESSION:Cardiomegaly.Mild pulmonary interstitial edema with a small right- sided effusion.No acute osseous abnormality. Signed: Dario Abrahameport Verified Date/Time: 09/02/2017 21:42:11 Reading Location: [facility] B[address] [facility] Reading Room CREATININE, RANDOM [id number] 21:10:00 Test Item Value Reference Range Interpretation Comments CREATININE URINE (BEAKER) (test 35.5 mg/dL code = 375) Reference Range: No NormalsSODIUM, RANDOM [id number] 21:10:00 Test Item Value Reference Range Interpretation Comments SODIUM URINE (BEAKER) (test code = 80 meq/L 243) Reference Range: No NormalsURINALYSIS W/ [id number] 20:59:00 Test Item Value Reference Range Interpretation [...] code = 514) SOURCE(BEAKER) (test code = 1477) BASIC METABOLIC [id number] 16:49:00 Test Item Value Reference Range Interpretation [...] S NOT APPLICABLE FOR DIALYSIS PATIEN TS. [id number] 16:38:00 Test Item Value Reference Range Interpretation [...] (BEAKER) (test code = 700) BASIC METABOLIC [id number] 13:43:00 Test Item Value Reference Range Interpretation [...] NOT APPLICABLE FOR DIALYSIS PATIEN TS. POCT-GLUCOSE [id number] 12:44:00 Test Item Value Reference Range Interpretation Comments POC-GLUCOSE METER 283 mg/dL 70-110 H TESTED AT [facility] 6720 (BEAKER) (test code = [place] 1538) [address] CALCIUM, [id number] 07:03:00 Test Item Value Reference Range Interpretation Comments CALCIUM IONIZED (BEAKER) (test 1.02 mmol/L 1.12-1.27 L code = 698) PH, BLOOD (BEAKER) (test code = 7.43 1810) [id number] 05:28:00 Test Item Value Reference Range Interpretation Comments PHOSPHORUS (BEAKER) (test code = 3.3 mg/dL 2.3-4.7 604) [id number] 05:28:00 Test Item Value Reference Range Interpretation Comments MAGNESIUM (BEAKER) (test code = 1.5 mg/dL 1.6-2.6 L 627) BASIC METABOLIC [id number] 05:28:00 Test Item Value Reference Range Interpretation [...] PATIEN TS. CBC W/PLT COUNT & AUTO [id number] 05:06:00 Test Item Value Reference Range Interpretation [...] PERCENT (BEAKER) (test code = 2801) POCT-GLUCOSE [id number] 21:08:00 Test Item Value Reference Range Interpretation Comments POC-GLUCOSE METER 202 mg/dL 70-110 H TESTED AT [place] [address] ([facility]) (test code = [facility] 1538) [address] POCT-GLUCOSE [id number] 16:50:00 Test Item Value Reference Range Interpretation Comments POC-GLUCOSE METER 287 mg/dL 70-110 H TESTED AT [place] [address] ([facility]) (test code = [facility] 1538) [address] POCT-GLUCOSE [id number] 12:21:00 Test Item Value Reference Range Interpretation Comments POC-GLUCOSE METER 213 mg/dL 70-110 H TESTED AT [place] [address] ([facility]) (test code = [facility] 1538) [address] POCT-GLUCOSE [id number] 08:28:00 Test Item Value Reference Range Interpretation Comments POC-GLUCOSE METER 178 mg/dL 70-110 H TESTED AT [place] [address] ([facility]) (test code = [facility] 1538) [address] CALCIUM, [id number] 07:06:00 Test Item Value Reference Range Interpretation Comments CALCIUM IONIZED ([facility]) (test 0.99 mmol/L 1.12-1.27 L code = 698) PH, BLOOD ([facility]) (test code = 7.42 1810) [id number] 05:37:00 Test Item Value Reference Range Interpretation Comments PHOSPHORUS (BEAKER) (test code = 3.5 mg/dL 2.3-4.7 604) [id number] 05:37:00 Test Item Value Reference Range Interpretation Comments MAGNESIUM (BEAKER) (test code = 1.6 mg/dL 1.6-2.6 627) BASIC METABOLIC [id number] 05:37:00 Test Item Value Reference Range Interpretation [...] PATIEN TS. CBC W/PLT COUNT & AUTO [id number] 05:07:00 Test Item Value Reference Range Interpretation [...] PERCENT (BEAKER) (test code = 2801) POCT-GLUCOSE [id number] 21:24:00 Test Item Value Reference Range Interpretation Comments POC-GLUCOSE METER 255 mg/dL 70-110 H TESTED AT [facility] 67 [facility] (test code = JULIANO Osborne [facility] 1538) [address] POCT-GLUCOSE [id number] 17:11:00 Test Item Value Reference Range Interpretation Comments POC-GLUCOSE METER 244 mg/dL 70-110 H TESTED AT [facility] 6720 ([facility]) (test code = JULIANO Osborne [facility] 1538) [address] POCT-GLUCOSE [id number] 11:54:00 Test Item Value Reference Range Interpretation Comments POC-GLUCOSE METER 209 mg/dL 70-110 H TESTED AT [facility] 6720 ([place]OBERT) (test code = [place] 1538) [address] POCT-GLUCOSE [id number] 08:15:00 Test Item Value Reference Range Interpretation Comments POC-GLUCOSE METER 132 mg/dL 70-110 H TESTED AT [facility] 6720 [facility] (test code = JULIANO Osborne [facility] 1538) [address] RAD, CHEST, 1 VIEW, NON [id number] 07:44:00Reason for exam:->edemaShould this be performed at the bedside?->YesFINAL REPORT Chest one view AP 08/07/2017 7:44 AM CLINICAL INDICATION: edema COMPARISON: 05/31/2017 IMPRESSION: Cardiomediastinal contours are stable. There is mild pulmonary edema,asymmetric to the right. There are trace bilateral pleural effusions, with bibasilar linear atelectasis. Sternotomy wires remain midline. Signed: Regan Cespedes Verified Date/Time: 08/07/2017 07:44:22 Reading Location: [facility] Radiology Reading Room [id number] 05:30:00 Test Item Value Reference Range Interpretation Comments FERRITIN (BEAKER) (test code = 361) 87 ng/mL 5-275 CBC W/PLT COUNT & AUTO [id number] 05:21:00 Test Item Value Reference Range Interpretation [...] % 20-55 L (test code = 2590) [id number] 05:11:00 Test Item Value Reference Range Interpretation Comments PHOSPHORUS (BEAKER) (test code = 3.6 mg/dL 2.3-4.7 604) [id number] 05:11:00 Test Item Value Reference Range Interpretation Comments MAGNESIUM (BEAKER) (test code = 2.0 mg/dL 1.6-2.6 627) BASIC METABOLIC [id number] 05:11:00 Test Item Value Reference Range Interpretation [...] H (BEAKER) (test code = 700) CALCIUM, [id number] 04:58:00 Test Item Value Reference Range Interpretation Comments CALCIUM IONIZED (BEAKER) (test 1.04 mmol/L 1.12-1.27 L code = 698) PH, BLOOD (BEAKER) (test code = 7.41 1810) RETICULOCYTE [id number] 04:51:00 Test Item Value Reference Range Interpretation Comments RETICULOCYTE COUNT PCT (BEAKER) (test 1.2 % 0.5-1.7 code = 575) POCT-GLUCOSE [id number] 20:49:00 Test Item Value Reference Range Interpretation Comments POC-GLUCOSE METER 202 mg/dL 70-110 H TESTED AT [place] [address] (BEAKER) (test code = JULIANO REYEZ 1538) [address] CREATININE, RANDOM [id number] 18:38:00 Test Item Value Reference Range Interpretation Comments CREATININE URINE (BEAKER) (test 56.3 mg/dL code = 375) Reference Range: No NormalsPROTEIN, RANDOM [id number] 18:38:00 Test Item Value Reference Range Interpretation Comments PROTEIN, URINE (BEAKER) (test code 189 mg/dL 0-14 H = 1569) URINALYSIS W/ [id number] 18:34:00 Test Item Value Reference Range Interpretation [...] 516) SOURCE(BEAKER) (test code = Urine, Voided 0393) POCT-GLUCOSE [id number] 17:38:00 Test Item Value Reference Range Interpretation Comments POC-GLUCOSE METER 143 mg/dL 70-110 H TESTED AT [place] [address] (BEAKER) (test code = JULIANO Osborne [facility] 1538) [address] POCT-GLUCOSE [id number] 12:30:00 Test Item Value Reference Range Interpretation Comments POC-GLUCOSE METER 218 mg/dL 70-110 H TESTED AT [place] [address] (BEAKER) (test code = JULIANO Osborne [facility] 1538) [address] POCT-GLUCOSE [id number] 08:00:00 Test Item Value Reference Range Interpretation Comments POC-GLUCOSE METER 134 mg/dL 70-110 H TESTED AT [place] [address] (BEAKER) (test code = JULIANO Osborne [facility] 1538) [address] CBC W/PLT COUNT & AUTO [id number] 04:23:00 Test Item Value Reference Range Interpretation [...] (BEAKER) (test code = 2801) BASIC METABOLIC [id number] 04:13:00 Test Item Value Reference Range Interpretation [...] S NOT APPLICABLE FOR DIALYSIS PATIEN TS. [id number] 04:10:00 Test Item Value Reference Range Interpretation Comments PHOSPHORUS (BEAKER) (test code = 4.9 mg/dL 2.3-4.7 H 604) [id number] 04:10:00 Test Item Value Reference Range Interpretation Comments MAGNESIUM (BEAKER) (test code = 1.4 mg/dL 1.6-2.6 L 627) [id number] 04:08:00 Test Item Value Reference Range Interpretation Comments FIBRINOGEN LEVEL (BEAKER) (test 548 mg/dl 225-434 H code = 658) [id number] 04:08:00 Test Item Value Reference Range Interpretation Comments PARTIAL THROMBOPLASTIN TIME 37.7 seconds 22.5-36.0 H (BEAKER) (test code = 760) PROTHROMBIN [id number] 04:07:00 Test Item Value Reference Range Interpretation Comments PROTIME (BEAKER) (test code = 16.2 seconds 11.7-14.7 H 759) INR (BEAKER) (test code = 370) 1.3 <=5.9 RECOMMENDED COUMADIN/WARFARIN INR THERAPY RANGESSTANDARD DOSE: 2.0 - 3.0 Includes: PROPHYLAXIS forvenous thrombosis, systemic embolization; TREATMENT for venous thrombosis and/or pulmonary embolus.HIGH RISK: Target INR is 2.5-3.5 for patients with mechanical heart valves.[id number] 16:59:00 Test Item Value Reference Range Interpretation Comments ACTIVATED CLOTTING TIME 219 sec TEST ED AT [facility] 6720 ([facility]) (test code = [place] [address]) [address] BASIC METABOLIC [id number] 14:25:00 Test Item Value Reference Range Interpretation [...] NOT APPLICABLE FOR DIALYSIS PATIEN TS. POCT-GLUCOSE [id number] 13:21:00 Test Item Value Reference Range Interpretation Comments POC-GLUCOSE METER 170 mg/dL 70-110 H TESTED AT [facility] 6720 (BEAKER) (test code = [place] 1538) [address] POTASSIUM-STAT [id number] 13:20:00 Test Item Value Reference Range Interpretation Comments POTASSIUM (BEAKER) (test code = 4.2 meq/L 3.6-5.5 379) SODIUM NA-STAT [id number] 13:20:00 Test Item Value Reference Range Interpretation Comments SODIUM (BEAKER) (test code = 381) 133 meq/L 135-148 L HGB/HCT (H&H) - STAT [id number] 12:34:00 Test Item Value Reference Range Interpretation Comments HEMOGLOBIN (BEAKER) (test code = 10.8 g/dL 12.0-15.0 L 410) HEMATOCRIT (BEAKER) (test code = 32.0 % 36.0-45.0 L 411) POTASSIUM-STAT [id number] 08:15:00 Test Item Value Reference Range Interpretation Comments POTASSIUM (BEAKER) (test code = 4.1 meq/L 3.6-5.5 379) BLOOD GAS, [id number] 08:15:00 Test Item Value Reference Range Interpretation [...] code = 1819) 70.0 % SODIUM NA-STAT [id number] 08:15:00 Test Item Value Reference Range Interpretation Comments SODIUM (BEAKER) (test code = 381) 130 meq/L 135-148 L GLUCOSE-STAT [id number] 08:15:00 Test Item Value Reference Range Interpretation Comments GLUCOSE RANDOM (BEAKER) (test code 172 mg/dL 70-110 H = 652) HGB/HCT (H&H) - STAT [id number] 08:15:00 Test Item Value Reference Range Interpretation Comments HEMOGLOBIN (BEAKER) (test code = 8.8 g/dL 12.0-15.0 L 410) HEMATOCRIT (BEAKER) (test code = 26.0 % 36.0-45.0 L 411) BASIC METABOLIC [id number] 07:37:00 Test Item Value Reference Range Interpretation [...] PATIEN TS. CBC W/PLT COUNT & AUTO [id number] 07:20:00 Test Item Value Reference Range Interpretation [...] PERCENT (BEAKER) (test code = 2801) POCT-GLUCOSE [id number] 07:03:00 Test Item Value Reference Range Interpretation Comments POC-GLUCOSE METER 186 mg/dL 70-110 H TESTED AT [facility] 6720 (BEAKER) (test code = [place] 1538) [address] B-TYPE NATRIURETIC FACTOR (BNP)2017-06-10 12:44:00 Test Item Value Reference Range Interpretation Comments B-TYPE NATRIURETIC PEPTIDE 1264 pg/mL 0-100 H (BEAKER) (test code = 700) [id number] 12:36:00 Test Item Value Reference Range Interpretation Comments MAGNESIUM (BEAKER) (test code = 1.6 mg/dL 1.6-2.6 627) BASIC METABOLIC [id number] 12:36:00 Test Item Value Reference Range Interpretation [...] NOT APPLICABLE FOR DIALYSIS PATIEN TS. POCT-GLUCOSE [id number] 12:04:00 Test Item Value Reference Range Interpretation Comments POC-GLUCOSE METER 274 mg/dL 70-110 H TESTED AT [facility] 6720 (BEAKER) (test code = [facility] [place] 1538) [address] POCT-GLUCOSE [id number] 07:21:00 Test Item Value Reference Range Interpretation Comments POC-GLUCOSE METER 137 mg/dL 70-110 H TESTED AT [facility] 6720 (BEAKER) (test code = [facility] [place] 1538) [address] BASIC METABOLIC [id number] 05:10:00 Test Item Value Reference Range Interpretation [...] 0-0 (BEAKER) (test code = 413) POCT-GLUCOSE [id number] 21:23:00 Test Item Value Reference Range Interpretation Comments POC-GLUCOSE METER 240 mg/dL 70-110 H TESTED AT [place] [address] ([facility]) (test code = [facility]AMANDA Osborne [facility] 1538) [address] POCT-GLUCOSE [id number] 16:42:00 Test Item Value Reference Range Interpretation Comments POC-GLUCOSE METER 234 mg/dL 70-110 H TESTED AT [place] [address] ([facility]) (test code = [facility] Dylon [facility] 1538) [address] POCT-GLUCOSE [id number] 13:22:00 Test Item Value Reference Range Interpretation Comments POC-GLUCOSE METER 166 mg/dL 70-110 H TESTED AT [place] [address] ([facility]) (test code = [facility] 1538) [address] RAD, CHEST, 1 VIEW, NON [id number] 09:43:00Reason for exam:->s/p ACBShould this be performed [...] Ring MDReport Verified Date/Time: 05/31/2017 09:43:30 ReadingLocation: [facility] B1 C013X Ortho Consult Reading Room POCT-GLUCOSE [id number] 06:57:00 Test Item Value Reference Range Interpretation Comments POC-GLUCOSE METER 136 mg/dL 70-110 H TESTED AT [place] [address] ([facility]) (test code = [facility] 1538) [address] CALCIUM, [id number] 06:41:00 Test Item Value Reference Range Interpretation Comments CALCIUM IONIZED ([facility]) (test 1.10 mmol/L 1.12-1.27 L code = 698) PH, BLOOD (BEAKER) (test code = 7.42 1810) [id number] 06:17:00 Test Item Value Reference Range Interpretation Comments PHOSPHORUS (BEAKER) (test code = 3.3 mg/dL 2.3-4.7 604) [id number] 06:17:00 Test Item Value Reference Range Interpretation Comments MAGNESIUM (BEAKER) (test code = 1.8 mg/dL 1.6-2.6 627) BASIC METABOLIC [id number] 06:17:00 Test Item Value Reference Range Interpretation [...] PATIEN TS. CBC W/PLT COUNT & AUTO [id number] 05:07:00 Test Item Value Reference Range Interpretation [...] PERCENT (BEAKER) (test code = 2801) POCT-GLUCOSE [id number] 20:56:00 Test Item Value Reference Range Interpretation Comments POC-GLUCOSE METER 196 mg/dL 70-110 H TESTED AT [facility] 6720 ([facility]) (test code = [facility] 1538) [address] POCT-GLUCOSE [id number] 16:42:00 Test Item Value Reference Range Interpretation Comments POC-GLUCOSE METER 196 mg/dL 70-110 H TESTED AT [facility] 6720 ([facility]) (test code = [facility] 1538) [address] POCT-GLUCOSE [id number] 11:45:00 Test Item Value Reference Range Interpretation Comments POC-GLUCOSE METER 215 mg/dL 70-110 H TESTED AT [facility] 6720 (BEAKER) (test code = JULIANO Osborne [facility] 1538) [address] RAD, CHEST, 1 VIEW, NON [id number] 11:15:00Reason for exam:->s/p ACBShould this be performed at the bedside?->YesFINAL REPORT Chest one view compared to May 28, 2017 Discussion: Airspace opacities are seen in both lower lung regions, probably atelectasis. Correlate clinically for infection. I could not exclude small effusions. No pneumothorax. Upper lungs clear. Signed: Jeannette Nava Verified Date/Time: 05/30/2017 11:15:07 Reading Location: [facility] Radiology Reading Room CALCIUM, [id number] 09:21:00 Test Item Value Reference Range Interpretation Comments CALCIUM IONIZED (BEAKER) (test 1.11 mmol/L 1.12-1.27 L code = 698) PH, BLOOD (BEAKER) (test code = 7.36 1810) BASIC METABOLIC [id number] 07:37:00 Test Item Value Reference Range Interpretation [...] S NOT APPLICABLE FOR DIALYSIS PATIEN TS. [id number] 07:28:00 Test Item Value Reference Range Interpretation Comments PHOSPHORUS (BEAKER) (test code = 3.8 mg/dL 2.3-4.7 604) [id number] 07:28:00 Test Item Value Reference Range Interpretation Comments MAGNESIUM (BEAKER) (test code = 1.9 mg/dL 1.6-2.6 627) CBC W/PLT COUNT & AUTO [id number] 07:26:00 Test Item Value Reference Range Interpretation [...] PERCENT (BEAKER) (test code = 2801) POCT-GLUCOSE [id number] 07:21:00 Test Item Value Reference Range Interpretation Comments POC-GLUCOSE METER 146 mg/dL 70-110 H TESTED AT [place] [address] ([facility]) (test code = [facility] 1538) [address] POCT-GLUCOSE [id number] 22:02:00 Test Item Value Reference Range Interpretation Comments POC-GLUCOSE METER 201 mg/dL 70-110 H TESTED AT [place] [address] ([facility]) (test code = [facility] 1538) [address] POCT-GLUCOSE [id number] 18:27:00 Test Item Value Reference Range Interpretation Comments POC-GLUCOSE METER 240 mg/dL 70-110 H TESTED AT [place] [address] ([facility]) (test code = [facility] 1538) [address] POCT-GLUCOSE [id number] 12:13:00 Test Item Value Reference Range Interpretation Comments POC-GLUCOSE METER 193 mg/dL 70-110 H TESTED AT [facility] 6720 ([facility]) (test code = [facility] 1538) [address] POCT-GLUCOSE [id number] 09:02:00 Test Item Value Reference Range Interpretation Comments POC-GLUCOSE METER 132 mg/dL 70-110 H TESTED AT [facility] 6720 ([facility]) (test code = [facility] 1538) [address] CALCIUM, [id number] 05:42:00 Test Item Value Reference Range Interpretation Comments CALCIUM IONIZED (BEAKER) (test 1.12 mmol/L 1.12-1.27 code = 698) PH, BLOOD (BEAKER) (test code = 7.34 1810) COMPREHENSIVE METABOLIC [id number] 05:33:00 Test Item Value Reference Range Interpretation [...] S NOT APPLICABLE FOR DIALYSIS PATIEN TS. [id number] 05:32:00 Test Item Value Reference Range Interpretation Comments PHOSPHORUS (BEAKER) (test code = 3.6 mg/dL 2.3-4.7 604) [id number] 05:32:00 Test Item Value Reference Range Interpretation Comments MAGNESIUM (BEAKER) (test code = 2.2 mg/dL 1.6-2.6 627) CBC W/PLT COUNT & AUTO [id number] 05:01:00 Test Item Value Reference Range Interpretation [...] PERCENT (AKER) (test code = 2801) POCT-GLUCOSE [id number] 21:04:00 Test Item Value Reference Range Interpretation Comments POC-GLUCOSE METER 165 mg/dL 70-110 H TESTED AT [place] [address] ([facility]) (test code = JULIANO Osborne [facility] 1538) [address] POCT-GLUCOSE [id number] 17:30:00 Test Item Value Reference Range Interpretation Comments POC-GLUCOSE METER 236 mg/dL 70-110 H TESTED AT [place] [address] ([facility]) (test code = JULIANO Osborne [facility] 1538) [address] RAD, CHEST, 1 VIEW, NON [id number] 13:53:00Reason for exam:->assess for ill-defined opacityShould this [...] Verified Date/Time: 05/28/2017 13:53:03 Reading Location: [address] Radiology Reading Room POCT-GLUCOSE [id number] 11:53:00 Test Item Value Reference Range Interpretation Comments POC-GLUCOSE METER 215 mg/dL 70-110 H TESTED AT [facility] 6720 ([facility]) (test code = JULIANO Osborne [place] 1538) [address] POCT-GLUCOSE [id number] 08:32:00 Test Item Value Reference Range Interpretation Comments POC-GLUCOSE METER 168 mg/dL 70-110 H TESTED AT [facility] 67 ([facility]) (test code = BERTNE R [facility] 2148) [address] CALCIUM, [id number] 05:44:00 Test Item Value Reference Range Interpretation Comments CALCIUM IONIZED (BEAKER) (test 1.09 mmol/L 1.12-1.27 L code = 698) PH, BLOOD (BEAKER) (test code = 7.38 1810) [id number] 05:44:00 Test Item Value Reference Range Interpretation Comments PHOSPHORUS (BEAKER) (test code = 3.5 mg/dL 2.3-4.7 604) [id number] 05:44:00 Test Item Value Reference Range Interpretation Comments MAGNESIUM (BEAKER) (test code = 1.9 mg/dL 1.6-2.6 627) BASIC METABOLIC [id number] 05:44:00 Test Item Value Reference Range Interpretation [...] PATIEN TS. CBC W/PLT COUNT & AUTO [id number] 05:05:00 Test Item Value Reference Range Interpretation [...] PERCENT (BEAKER) (test code = 2801) POCT-GLUCOSE [id number] 21:03:00 Test Item Value Reference Range Interpretation Comments POC-GLUCOSE METER 173 mg/dL 70-110 H TESTED AT [facility] 6720 (BEAKER) (test code = BERTNE R [place] 1538) [address] [id number] 18:15:00 Test Item Value Reference Range Interpretation Comments ACTIVATED CLOTTING TIME 147 sec TEST ED AT [place] [address] ([facility]) (test code = [place]IANO [place] 441) [address] [id number] 18:15:00 Test Item Value Reference Range Interpretation Comments ACTIVATED CLOTTING TIME 246 sec TEST ED AT [place] [address] ([facility]) (test code = JULIANO Osborne [place] 441) [address] POCT-GLUCOSE [id number] 12:39:00 Test Item Value Reference Range Interpretation Comments POC-GLUCOSE METER 219 mg/dL 70-110 H TESTED AT [place] [address] ([facility]) (test code = JULIANO Osborne [place] 1538) [address] RAD, CHEST, 1 VIEW, NON [id number] 10:11:00Reason for exam:->pl effusionShould this be performed at the bedside?->YesFINAL REPORT Chest one view compared to May 26 Discussion: There is cardiac prominence. Upper lungs are clear. Ill-defined basilar densities are similar probably atelectasis. No gross effusion or pneumothorax with bilateral chest tubes in place. Signed: Jeannette Nava Verified Date/Time: 05/27/2017 10:11:44 Reading Location: [facility] Radiology Reading Room POCT-GLUCOSE METER 2017-05-27 07:05:00 Test Item Value Reference Range Interpretation Comments POC-GLUCOSE METER 167 mg/dL 70-110 H TESTED AT [place] [address] ([facility]) (test code = JULIANO Osborne [facility] 1538) [address] CALCIUM, [id number] 06:20:00 Test Item Value Reference Range Interpretation Comments CALCIUM IONIZED ([facility]) (test 0.98 mmol/L 1.12-1.27 L code = 698) PH, BLOOD ([facility]) (test code = 7.50 1810) [id number] 04:56:00 Test Item Value Reference Range Interpretation Comments PHOSPHORUS (BEAKER) (test code = 2.6 mg/dL 2.3-4.7 604) [id number] 04:56:00 Test Item Value Reference Range Interpretation Comments MAGNESIUM (BEAKER) (test code = 2.0 mg/dL 1.6-2.6 627) BASIC METABOLIC [id number] 04:56:00 Test Item Value Reference Range Interpretation [...] PATIEN TS. CBC W/PLT COUNT & AUTO [id number] 04:36:00 Test Item Value Reference Range Interpretation [...] PERCENT (BEAKER) (test code = 2801) POCT-GLUCOSE [id number] 21:29:00 Test Item Value Reference Range Interpretation Comments POC-GLUCOSE METER 147 mg/dL 70-110 H TESTED AT [place] [address] ([facility]) (test code = [facility] 1538) [address] POCT-GLUCOSE [id number] 17:51:00 Test Item Value Reference Range Interpretation Comments POC-GLUCOSE METER 224 mg/dL 70-110 H TESTED AT [place] [address] ([facility]) (test code = [facility] 1538) [address] POCT-GLUCOSE [id number] 13:53:00 Test Item Value Reference Range Interpretation Comments POC-GLUCOSE METER 182 mg/dL 70-110 H TESTED AT [place] [address] ([facility]) (test code = [facility] 1538) [address] RAD, CHEST, 1 VIEW, NON [id number] 08:44:00Reason for exam:->pl effusionShould this be performed [...] Verified Date/Time: 05/26/2017 08:44:25 Reading Location: [address] Radiology Reading Room POCT- GLUCOSE [id number] 07:43:00 Test Item Value Reference Range Interpretation Comments POC-GLUCOSE METER 113 mg/dL 70-110 H TESTED AT [facility] 6720 (BEAKER) (test code = JULIANO Osborne [facility] 1538) [address] CALCIUM, [id number] 06:31:00 Test Item Value Reference Range Interpretation Comments CALCIUM IONIZED (BEAKER) (test 1.07 mmol/L 1.12-1.27 L code = 698) PH, BLOOD (BEAKER) (test code = 7.38 1810) [id number] 04:51:00 Test Item Value Reference Range Interpretation Comments PHOSPHORUS (BEAKER) (test code = 3.2 mg/dL 2.3-4.7 604) [id number] 04:51:00 Test Item Value Reference Range Interpretation Comments MAGNESIUM (BEAKER) (test code = 2.1 mg/dL 1.6-2.6 627) BASIC METABOLIC [id number] 04:51:00 Test Item Value Reference Range Interpretation [...] PATIEN TS. CBC W/PLT COUNT & AUTO [id number] 04:27:00 Test Item Value Reference Range Interpretation [...] PERCENT (BEAKER) (test code = 2801) POCT-GLUCOSE [id number] 23:48:00 Test Item Value Reference Range Interpretation Comments POC-GLUCOSE METER 123 mg/dL 70-110 H TESTED AT [place] [address] (BEAKER) (test code = [facility]AMANDA Osborne [facility] 1538) [address] POCT-GLUCOSE [id number] 16:46:00 Test Item Value Reference Range Interpretation Comments POC-GLUCOSE METER 178 mg/dL 70-110 H TESTED AT [place] [address] (BEAKER) (test code = [facility] Dylon [facility] 1538) [address] BASIC METABOLIC [id number] 05:53:00 Test Item Value Reference Range Interpretation [...] S NOT APPLICABLE FOR DIALYSIS PATIEN TS. [id number] 05:52:00 Test Item Value Reference Range Interpretation Comments PHOSPHORUS (BEAKER) (test code = 4.2 mg/dL 2.3-4.7 604) [id number] 05:52:00 Test Item Value Reference Range Interpretation Comments MAGNESIUM (BEAKER) (test code = 2.3 mg/dL 1.6-2.6 627) CALCIUM, [id number] 05:27:00 Test Item Value Reference Range Interpretation Comments CALCIUM IONIZED (BEAKER) (test 1.12 mmol/L 1.12-1.27 code = 698) PH, BLOOD (BEAKER) (test code = 7.38 1810) CBC W/PLT COUNT & AUTO [id number] 05:07:00 Test Item Value Reference Range Interpretation [...] = 2801) RAD, CHEST, 1 VIEW, NON [id number] 04:45:00Reason for exam:->pl effusionShould this be performed [...] HOSPITAL C013Y CT Body Reading Room POCT-GLUCOSE [id number] 01:52:00 Test Item Value Reference Range Interpretation Comments POC-GLUCOSE METER 126 mg/dL 70-110 H TESTED AT [facility] 6720 (BEAKER) (test code = JULIANO Osborne [place] 1538) [address] POCT-GLUCOSE [id number] 13:07:00 Test Item Value Reference Range Interpretation Comments POC-GLUCOSE METER 118 mg/dL 70-110 H TESTED AT [facility] 6720 ([facility]) (test code = JULIANO [place] 1538) [address] BRONCHIAL CULTURE + GRAM [id number] 11:35:00 Test Item Value Reference Range Interpretation Comments CULTURE ([facility]) (test code = 1095) Amikacin [...] <1+ gram (BEAKER) (test code = positive 781229) cocci in pairs GRAM STAIN RESULT 1+ gram (BEAKER) (test code = variable rods 917493) 1+ Normal respiratory todd presentRAD, CHEST, 1 VIEW, NON [id number] 06:50:00Reason for exam:->pl effusionShould this be performed at the bedside?->YesFINAL REPORT RAD, CHEST, 1 VIEW, NON DEPT INDICATION: pl effusion COMPARISON:Prior day's exam FINDINGS: Portable frontal view of the chest. IMPRESSION: Support Lines: Stable.Lungs and pleura: Unchanged airspace and pleural opacities. No pneumothorax.Heart and mediastinum: Stable contours. Stable surgical changes.Additional findings: None. Signed: JR Elbert, Kelly Bettencourt Verified Date/Time: 05/24/2017 06:50:08 Reading Location: [facility] C013Y CT Body Reading Room BASIC METABOLIC [id number] 04:19:00 Test Item Value Reference Range Interpretation [...] NOT APPLICABLE FOR DIALYSIS PATIEN TS. CALCIUM, [id number] 04:16:00 Test Item Value Reference Range Interpretation Comments CALCIUM IONIZED (BEAKER) (test 1.06 mmol/L 1.12-1.27 L code = 698) PH, BLOOD (BEAKER) (test code = 7.40 1810) [id number] 04:11:00 Test Item Value Reference Range Interpretation Comments PHOSPHORUS (BEAKER) (test code = 6.0 mg/dL 2.3-4.7 H 604) [id number] 04:11:00 Test Item Value Reference Range Interpretation Comments MAGNESIUM (BEAKER) (test code = 2.4 mg/dL 1.6-2.6 627) CBC W/PLT COUNT & AUTO [id number] 03:50:00 Test Item Value Reference Range Interpretation [...] PERCENT (AKER) (test code = 2801) POCT-GLUCOSE [id number] 20:45:00 Test Item Value Reference Range Interpretation Comments POC-GLUCOSE METER 143 mg/dL 70-110 H TESTED AT [facility] 67 ([facility]) (test code = [facility] 1538) [address] POCT-GLUCOSE [id number] 20:45:00 Test Item Value Reference Range Interpretation Comments POC-GLUCOSE METER 145 mg/dL 70-110 H TESTED AT [place] [address] ([facility]) (test code = [facility] 1538) [address] [id number] 13:37:00 Test Item Value Reference Range Interpretation Comments PREALBUMIN (BEAKER) 10 mg/dL 14-45 L Specimen slightly (test code = 586) hemolyzed OXYGEN SATURATION, [id number] 12:31:00 Test Item Value Reference Range Interpretation Comments O2 SATURATION (MEASURED) ([facility]) 94.5 % (test code = 1455) [id number] 11:02:00 Test Item Value Reference Range Interpretation Comments PREALBUMIN (BEAKER) (test code = 10 mg/dL 14-45 L 586) RAD, CHEST, 1 VIEW, NON [id number] 05:14:00while patient is intubated or has chest [...] MDReport Verified Date/Time: 05/23/2017 05:14:04 Reading Location: [facility] C013Y CT Body Reading Room BASIC METABOLIC [id number] 03:48:00 Test Item Value Reference Range Interpretation [...] S NOT APPLICABLE FOR DIALYSIS PATIEN TS. [id number] 03:46:00 Test Item Value Reference Range Interpretation Comments MAGNESIUM (BEAKER) 2.4 mg/dL 1.6-2.6 Specimen slightly (test code = 627) hemolyzed [id number] 03:46:00 Test Item Value Reference Range Interpretation Comments PHOSPHORUS (BEAKER) 6.5 mg/dL 2.3-4.7 H Specimen slightly (test code = 604) hemolyzed CBC W/PLT COUNT & AUTO [id number] 03:26:00 Test Item Value Reference Range Interpretation [...] (BEAKER) (test code = 2801) BLOOD GAS, [id number] 03:18:00 Test Item Value Reference Range Interpretation [...] (test code = 1819) 36.0 % CALCIUM, [id number] 16:32:00 Test Item Value Reference Range Interpretation Comments CALCIUM IONIZED (BEAKER) (test 1.11 mmol/L 1.12-1.27 L code = 698) PH, BLOOD (BEAKER) (test code = 7.39 1810) BASIC METABOLIC [id number] 15:43:00 Test Item Value Reference Range Interpretation [...] NOT APPLICABLE FOR DIALYSIS PATIEN TS. POCT-GLUCOSE [id number] 12:53:00 Test Item Value Reference Range Interpretation Comments POC-GLUCOSE METER 118 mg/dL 70-110 H TESTED AT [facility] 6720 (BEAKER) (test code = JULIANO Osborne [facility] 1538) [address] BLOOD GAS, [id number] 10:42:00 Test Item Value Reference Range Interpretation [...] (test code = 1819) 40.0 % POCT-GLUCOSE [id number] 06:46:00 Test Item Value Reference Range Interpretation Comments POC-GLUCOSE METER 106 mg/dL 70-110 TESTED AT [facility] 6720 (BEAKER) (test code = JULIANO Osborne [place] 1538) [address] RAD, CHEST, 1 VIEW, NON [id number] 05:05:00while patient is intubated or has chest [...] HOSPITAL C013Y CT Body ReadingRoom BASIC METABOLIC [id number] 05:00:00 Test Item Value Reference Range Interpretation [...] S NOT APPLICABLE FOR DIALYSIS PATIEN TS. [id number] 04:41:00 Test Item Value Reference Range Interpretation Comments PHOSPHORUS (BEAKER) (test code = 6.4 mg/dL 2.3-4.7 H 604) [id number] 04:41:00 Test Item Value Reference Range Interpretation Comments MAGNESIUM (BEAKER) (test code = 2.6 mg/dL 1.6-2.6 627) CALCIUM, [id number] 04:26:00 Test Item Value Reference Range Interpretation Comments CALCIUM IONIZED (BEAKER) (test 1.09 mmol/L 1.12-1.27 L code = 698) PH, BLOOD (BEAKER) (test code = 7.40 1810) OXYGEN SATURATION, [id number] 04:25:00 Test Item Value Reference Range Interpretation Comments O2 SATURATION (MEASURED) (BEAKER) 77.0 % (test code = 1455) CBC W/PLT COUNT & AUTO [id number] 04:17:00 Test Item Value Reference Range Interpretation [...] code = 2801) LACTIC ACID, ARTERIAL, WHOLE [id number] 00:07:00 Test Item Value Reference Range Interpretation Comments LACTATE BLOOD 1.0 mmol/L 0.5-2.2 Specimen sligh tly ARTERIAL (2) (BEAKER) hemoly zed (test code = 2364) Effective 08/02/2015: Units/Reference Range ChangeNew: 0.5-2.2 mmol/L Previous: 5-20 mg/dLPOCT-GLUCOSE [id number] 23:47:00 Test Item Value Reference Range Interpretation Comments POC-GLUCOSE METER 180 mg/dL 70-110 H TESTED AT [facility] 6720 (BEAKER) (test code = [place]IANO [place] 1538) [address] BLOOD GAS, [id number] 23:46:00 Test Item Value Reference Range Interpretation [...] code = 1819) 100.0 % SODIUM NA-STAT [id number] 23:46:00 Test Item Value Reference Range Interpretation Comments SODIUM (BEAKER) (test code = 381) 134 meq/L 135-148 L GLUCOSE-STAT [id number] 23:46:00 Test Item Value Reference Range Interpretation Comments GLUCOSE RANDOM (BEAKER) (test code 119 mg/dL 70-110 H = 652) HGB/HCT (H&H) - STAT [id number] 23:46:00 Test Item Value Reference Range Interpretation Comments HEMOGLOBIN (BEAKER) (test code = 8.8 g/dL 12.0-15.0 L 410) HEMATOCRIT (BEAKER) (test code = 26.0 % 36.0-45.0 L 411) OXYGEN SATURATION, [id number] 23:45:00 Test Item Value Reference Range Interpretation Comments O2 SATURATION (MEASURED) (BEAKER) 68.1 % (test code = 1455) POTASSIUM-STAT [id number] 23:45:00 Test Item Value Reference Range Interpretation Comments POTASSIUM (BEAKER) (test code = 5.5 meq/L 3.6-5.5 379) POCT-GLUCOSE [id number] 20:58:00 Test Item Value Reference Range Interpretation Comments POC-GLUCOSE METER 133 mg/dL 70-110 H TESTED AT [place] [id number] ([facility]) (test code = JULIANO Osborne [place] 1538) [address] POCT-GLUCOSE [id number] 17:58:00 Test Item Value Reference Range Interpretation Comments POC-GLUCOSE METER 210 mg/dL 70-110 H TESTED AT [place] [id number] ([facility]) (test code = [facility] [place] 1538) [id number] POCT-GLUCOSE [id number] 17:58:00 Test Item Value Reference Range Interpretation Comments POC-GLUCOSE METER 211 mg/dL 70-110 H TESTED AT [place] [address] ([facility]) (test code = [facility] [place] 1538) [address] POCT-GLUCOSE [id number] 17:58:00 Test Item Value Reference Range Interpretation Comments POC-GLUCOSE METER 232 mg/dL 70-110 H TESTED AT [place] [id number] ([facility]) (test code = [facility] 15[address]) [id number] POCT-GLUCOSE [id number] 17:58:00 Test Item Value Reference Range Interpretation Comments POC-GLUCOSE METER 262 mg/dL 70-110 H TESTED AT [place] [address] ([facility]) (test code = [facility] MONOQI [facility] 1538) [address] BLOOD GAS, [id number] 17:01:00 Test Item Value Reference Range Interpretation [...] (test code = 1819) 60.0 % POTASSIUM-STAT [id number] 17:00:00 Test Item Value Reference Range Interpretation Comments POTASSIUM (BEAKER) (test code = 4.8 meq/L 3.6-5.5 379) POCT-GLUCOSE [id number] 15:52:00 Test Item Value Reference Range Interpretation Comments POC-GLUCOSE METER 267 mg/dL 70-110 H TESTED AT [facility] 67 (BEAKER) (test code = JULIANO Osborne [place] 1538) [address] POCT-GLUCOSE [id number] 14:42:00 Test Item Value Reference Range Interpretation Comments POC-GLUCOSE METER 231 mg/dL 70-110 H TESTED AT [place] [address] (BEAKER) (test code = JULIANO Osborne [facility] 1538) [address] BODY FLUID CELL COUNT WITH [id number] 14:41:00 Test Item Value Reference Range Interpretation [...] Tube (test code = 2873) BASIC METABOLIC [id number] 14:11:00 Test Item Value Reference Range Interpretation [...] S NOT APPLICABLE FOR DIALYSIS PATIEN TS. [id number] 14:08:00 Test Item Value Reference Range Interpretation Comments PHOSPHORUS (BEAKER) (test code = 7.2 mg/dL 2.3-4.7 H 604) [id number] 14:08:00 Test Item Value Reference Range Interpretation Comments MAGNESIUM (BEDANIELA) (test code = 2.6 mg/dL 1.6-2.6 627) POCT-GLUCOSE [id number] 12:49:00 Test Item Value Reference Range Interpretation Comments POC-GLUCOSE METER 224 mg/dL 70-110 H TESTED AT [facility] 67 ([facility]) (test code = [facility] Dylon [facility] 1538) [address] POCT-GLUCOSE [id number] 12:49:00 Test Item Value Reference Range Interpretation Comments POC-GLUCOSE METER 248 mg/dL 70-110 H TESTED AT [facility] 67 ([facility]) (test code = [facility] 1538) [address] RAD, CHEST, 1 VIEW, NON [id number] 12:32:00Reason for exam:->re-intubationShould this be performed at [...] Location: [facility] Reading Room POTASSIUM-STAT [id number] 12:28:00 Test Item Value Reference Range Interpretation Comments POTASSIUM (BEAKER) (test code = 5.5 meq/L 3.6-5.5 379) BLOOD GAS, [id number] 12:28:00 Test Item Value Reference Range Interpretation [...] code = 1819) 100.0 % BLOOD GAS, [id number] 10:53:00 Test Item Value Reference Range Interpretation [...] 36.0 % RAD, CHEST, 1 VIEW, NON [id number] 08:46:00while patient is intubated or has chest [...] Date/Time: 05/21/2017 08:46:27 Reading Location: [facility] Radiology Reading Room BLOOD GAS, [id number] 05:41:00 Test Item Value Reference Range Interpretation [...] (BEAKER) (test code = 1819) 40 CALCIUM, [id number] 04:35:00 Test Item Value Reference Range Interpretation Comments CALCIUM IONIZED (BEAKER) (test 1.13 mmol/L 1.12-1.27 code = 698) PH, BLOOD (BEAKER) (test code = 7.32 1810) BLOOD GAS, [id number] 04:28:00 Test Item Value Reference Range Interpretation [...] (BEAKER) (test code = 1819) 40.0 % [id number] 04:20:00 Test Item Value Reference Range Interpretation Comments PHOSPHORUS (BEAKER) (test code = 6.2 mg/dL 2.3-4.7 H 604) [id number] 04:20:00 Test Item Value Reference Range Interpretation Comments MAGNESIUM (BEAKER) (test code = 2.4 mg/dL 1.6-2.6 627) HEPATIC FUNCTION [id number] 04:20:00 Test Item Value Reference Range Interpretation [...] = 11 U/L 6-55 347) BASIC METABOLIC [id number] 04:20:00 Test Item Value Reference Range Interpretation [...] APPLICABLE FOR DIALYSIS PATIEN TS. OXYGEN SATURATION, [id number] 04:18:00 Test Item Value Reference Range Interpretation Comments O2 SATURATION (MEASURED) (BEAKER) 68.0 % (test code = 1455) LACTIC ACID, ARTERIAL, WHOLE [id number] 04:12:00 Test Item Value Reference Range Interpretation Comments LACTATE BLOOD ARTERIAL (2) 1.0 mmol/L 0.5-2.2 (BEAKER) (test code = 2874) Effective 08/02/2015: Units/Reference Range ChangeNew: 0.5-2.2 mmol/L Previous: 5-20 mg/dLCBC W/PLT COUNT & AUTO [id number] 04:00:00 Test Item Value Reference Range Interpretation [...] (BEAKER) (test code = 2801) BLOOD GAS, [id number] 00:06:00 Test Item Value Reference Range Interpretation [...] (BEAKER) (test code = 1819) 40.0 % [id number] 18:55:00 Test Item Value Reference Range Interpretation Comments PHOSPHORUS (BEAKER) (test code = 4.8 mg/dL 2.3-4.7 H 604) [id number] 18:55:00 Test Item Value Reference Range Interpretation Comments MAGNESIUM (BEAKER) (test code = 2.3 mg/dL 1.6-2.6 627) BASIC METABOLIC [id number] 18:55:00 Test Item Value Reference Range Interpretation [...] DIALYSIS PATIEN TS. LACTIC ACID, ARTERIAL, WHOLE [id number] 18:53:00 Test Item Value Reference Range Interpretation Comments LACTATE BLOOD 0.9 mmol/L 0.5-2.2 Specimen sligh tly ARTERIAL (2) (BEAKER) hemoly zed (test code = 2874) Effective 08/02/2015: Units/Reference Range ChangeNew: 0.5-2.2 mmol/L Previous: 5-20 mg/dLRAD, CHEST, 1 VIEW, NON [id number] 18:44:00Reason for exam:- >postop cardiacShould this be [...] MDReport Verified Date/Time: 05/20/2017 18:44:30 Reading Location: [address] Consult Reading Room Electronically signed by: MIGUEL BHAKTA M.D. on05/20/2017 06:44 PMCBC W/PLT COUNT & AUTO [id number] 18:38:00 Test Item Value Reference Range Interpretation [...] (BEAKER) (test code = 2801) OXYGEN SATURATION, [id number] 18:36:00 Test Item Value Reference Range Interpretation Comments O2 SATURATION (MEASURED) (BEAKER) 72.5 % (test code = 1455) From distal port of IJ central venous catheterSODIUM NA-STAT [id number] 18:30:00 Test Item Value Reference Range Interpretation Comments SODIUM (BEAKER) (test code = 381) 132 meq/L 135-148 L HGB/HCT (H&H) - STAT [id number] 18:30:00 Test Item Value Reference Range Interpretation Comments HEMOGLOBIN (BEAKER) (test code = 9.4 g/dL 12.0-15.0 L 410) HEMATOCRIT (BEAKER) (test code = 28.0 % 36.0-45.0 L 411) GLUCOSE-STAT [id number] 18:30:00 Test Item Value Reference Range Interpretation Comments GLUCOSE RANDOM (BEAKER) (test code 159 mg/dL 70-110 H = 652) BLOOD GAS, [id number] 18:30:00 Test Item Value Reference Range Interpretation [...] (test code = 1819) 60.0 % CALCIUM, [id number] 18:30:00 Test Item Value Reference Range Interpretation Comments CALCIUM IONIZED (BEAKER) (test 0.94 mmol/L 1.12-1.27 L code = 698) PH, BLOOD (BEAKER) (test code = 7.34 1810) POTASSIUM-STAT [id number] 18:28:00 Test Item Value Reference Range Interpretation [...] 55.0-65.0 (test code = 1413) [facility] ([facility]) (test 0.0 % 0.0-5.0 code = 1414) [id number] 17:53:00 Test Item Value Reference Range Interpretation Comments ACTIVATED CLOTTING TIME 103 sec TEST ED AT [place] [address] ([facility]) (test code = MATTHIASAMANDA Dylon [place] 441) [address] [id number] 17:53:00 Test Item Value Reference Range Interpretation Comments ACTIVATED CLOTTING TIME 466 sec TEST ED AT [place] [address] ([facility]) (test code = JULIANO Osborne [place] [address]) [address] [id number] 17:53:00 Test Item Value Reference Range Interpretation Comments ACTIVATED CLOTTING TIME 543 sec TEST ED AT [place] [address] ([facility]) (test code = MAT[place]ASAMANDA [place] [address]) [address] [id number] 17:53:00 Test Item Value Reference Range Interpretation Comments ACTIVATED CLOTTING TIME 549 sec TEST ED AT [place] [address] ([facility]) (test code = MAT[place]ASAMANDA [place] 441) [address] [id number] 17:53:00 Test Item Value Reference Range Interpretation Comments ACTIVATED CLOTTING TIME 632 sec TEST ED AT [place] [address] ([facility]) (test code = [place]ASAMANDA [place] 441) [address] [id number] 17:53:00 Test Item Value Reference Range Interpretation Comments ACTIVATED CLOTTING TIME 494 sec TEST ED AT [place] [address] ([facility]) (test code = MAT[place]ASAMANDA [place] [address]) [address] [id number] 17:53:00 Test Item Value Reference Range Interpretation Comments ACTIVATED CLOTTING TIME 587 sec TEST ED AT [place] [address] ([facility]) (test code = MAT[place]ASAMANDA [place] [address]) [address] [id number] 17:53:00 Test Item Value Reference Range Interpretation Comments ACTIVATED CLOTTING TIME 626 sec TEST ED AT [place] [address] ([facility]) (test code = [place]AMANDA [place] 441) [address] [id number] 17:52:00 Test Item Value Reference Range Interpretation Comments ACTIVATED CLOTTING TIME 808 sec TEST ED AT [place] [address] ([facility]) (test code = [place]ASAMANDA [place] [address]) [address] [id number] 16:54:00 Test Item Value Reference Range Interpretation Comments PARTIAL THROMBOPLASTIN TIME 40.2 seconds 22.5-36.0 H (BEAKER) (test code = 760) [id number] 16:53:00 Test Item Value Reference Range Interpretation Comments FIBRINOGEN LEVEL (BEAKER) (test 306 mg/dl 225-434 code = 658) PROTHROMBIN [id number] 16:50:00 Test Item Value Reference Range Interpretation Comments PROTIME (BEAKER) (test code = 19.6 seconds 11.7-14.7 H 759) INR (BEAKER) (test code = 370) 1.7 <=5.9 RECOMMENDED COUMADIN/WARFARIN INR THERAPY RANGESSTANDARD DOSE: 2.0 - 3.0 Includes: PROPHYLAXIS forvenous thrombosis, systemic embolization; TREATMENT for venous thrombosis and/or pulmonary embolus.HIGH RISK: Target INR is 2.5-3.5 for patients with mechanical heart valves.PLATELET [id number] 16:45:00 Test Item Value Reference Range Interpretation Comments PLATELET COUNT (BEAKER) (test 136 K/CU MM 150-450 L code = 756) POTASSIUM-STAT [id number] 16:15:00 Test Item Value Reference Range Interpretation Comments POTASSIUM (BEAKER) (test code = 4.9 meq/L 3.6-5.5 379) BLOOD GAS, [id number] 16:15:00 Test Item Value Reference Range Interpretation [...] code = 1819) 100.0 % SODIUM NA-STAT [id number] 16:15:00 Test Item Value Reference Range Interpretation Comments SODIUM (BEAKER) (test code = 381) 131 meq/L 135-148 L GLUCOSE-STAT [id number] 16:15:00 Test Item Value Reference Range Interpretation Comments GLUCOSE RANDOM (BEAKER) (test code 198 mg/dL 70-110 H = 652) HGB/HCT (H&H) - STAT [id number] 16:15:00 Test Item Value Reference Range Interpretation Comments HEMOGLOBIN (BEAKER) (test code = 7.5 g/dL 12.0-15.0 L 410) HEMATOCRIT (BEAKER) (test code = 22.0 % 36.0-45.0 L 411) CALCIUM, [id number] 16:14:00 Test Item Value Reference Range Interpretation Comments CALCIUM IONIZED (BEAKER) (test 0.91 mmol/L 1.12-1.27 L code = 698) PH, BLOOD (BEAKER) (test code = 7.39 1810) BLOOD GAS, [id number] 15:39:00 Test Item Value Reference Range Interpretation [...] code = 1819) 70.0 % SODIUM NA-STAT [id number] 15:39:00 Test Item Value Reference Range Interpretation Comments SODIUM (BEAKER) (test code = 381) 131 meq/L 135-148 L GLUCOSE-STAT [id number] 15:39:00 Test Item Value Reference Range Interpretation Comments GLUCOSE RANDOM (BEAKER) (test code 186 mg/dL 70-110 H = 652) HGB/HCT (H&H) - STAT [id number] 15:39:00 Test Item Value Reference Range Interpretation Comments HEMOGLOBIN (BEAKER) (test code = 7.5 g/dL 12.0-15.0 L 410) HEMATOCRIT (BEAKER) (test code = 22.0 % 36.0-45.0 L 411) POTASSIUM-STAT [id number] 15:38:00 Test Item Value Reference Range Interpretation Comments POTASSIUM (BEAKER) (test code = 5.3 meq/L 3.6-5.5 379) BLOOD GAS, [id number] 15:24:00 Test Item Value Reference Range Interpretation [...] code = 1819) 70.0 % SODIUM NA-STAT [id number] 15:24:00 Test Item Value Reference Range Interpretation Comments SODIUM (BEAKER) (test code = 381) 130 meq/L 135-148 L GLUCOSE-STAT [id number] 15:24:00 Test Item Value Reference Range Interpretation Comments GLUCOSE RANDOM (BEAKER) (test code 189 mg/dL 70-110 H = 652) HGB/HCT (H&H) - STAT [id number] 15:24:00 Test Item Value Reference Range Interpretation Comments HEMOGLOBIN (BEAKER) (test code = 6.7 g/dL 12.0-15.0 L 410) HEMATOCRIT (BEAKER) (test code = 20.0 % 36.0-45.0 L 411) POTASSIUM-STAT [id number] 15:23:00 Test Item Value Reference Range Interpretation Comments POTASSIUM (BEAKER) (test code = 5.4 meq/L 3.6-5.5 379) BLOOD GAS, [id number] 15:07:00 Test Item Value Reference Range Interpretation [...] code = 1819) 70.0 % SODIUM NA-STAT [id number] 15:07:00 Test Item Value Reference Range Interpretation Comments SODIUM (BEAKER) (test code = 381) 129 meq/L 135-148 L GLUCOSE-STAT [id number] 15:07:00 Test Item Value Reference Range Interpretation Comments GLUCOSE RANDOM (BEAKER) (test code 172 mg/dL 70-110 H = 652) HGB/HCT (H&H) - STAT [id number] 15:07:00 Test Item Value Reference Range Interpretation Comments HEMOGLOBIN (BEAKER) (test code = 7.1 g/dL 12.0-15.0 L 410) HEMATOCRIT (BEAKER) (test code = 21.0 % 36.0-45.0 L 411) POTASSIUM-STAT [id number] 15:04:00 Test Item Value Reference Range Interpretation Comments POTASSIUM (BEAKER) (test code = 5.0 meq/L 3.6-5.5 379) BLOOD GAS, [id number] 14:21:00 Test Item Value Reference Range Interpretation [...] code = 1819) 70.0 % SODIUM NA-STAT [id number] 14:21:00 Test Item Value Reference Range Interpretation Comments SODIUM (BEAKER) (test code = 381) 133 meq/L 135-148 L GLUCOSE-STAT [id number] 14:21:00 Test Item Value Reference Range Interpretation Comments GLUCOSE RANDOM (BEAKER) (test code 160 mg/dL 70-110 H = 652) HGB/HCT (H&H) - STAT [id number] 14:21:00 Test Item Value Reference Range Interpretation Comments HEMOGLOBIN (BEAKER) (test code = 7.5 g/dL 12.0-15.0 L 410) HEMATOCRIT (BEAKER) (test code = 22.0 % 36.0-45.0 L 411) POTASSIUM-STAT [id number] 14:20:00 Test Item Value Reference Range Interpretation Comments POTASSIUM (BEAKER) (test code = 4.7 meq/L 3.6-5.5 379) BLOOD GAS, [id number] 13:58:00 Test Item Value Reference Range Interpretation [...] code = 1819) 80.0 % SODIUM NA-STAT [id number] 13:58:00 Test Item Value Reference Range Interpretation Comments SODIUM (BEAKER) (test code = 381) 132 meq/L 135-148 L GLUCOSE-STAT [id number] 13:58:00 Test Item Value Reference Range Interpretation Comments GLUCOSE RANDOM (BEAKER) (test code 166 mg/dL 70-110 H = 652) HGB/HCT (H&H) - STAT [id number] 13:58:00 Test Item Value Reference Range Interpretation Comments HEMOGLOBIN (BEAKER) (test code = 7.5 g/dL 12.0-15.0 L 410) HEMATOCRIT (BEAKER) (test code = 22.0 % 36.0-45.0 L 411) POTASSIUM-STAT [id number] 13:57:00 Test Item Value Reference Range Interpretation Comments POTASSIUM (BEAKER) (test code = 4.7 meq/L 3.6-5.5 379) BLOOD GAS, [id number] 13:35:00 Test Item Value Reference Range Interpretation [...] (test code = 1819) 80.0 % GLUCOSE-STAT [id number] 13:35:00 Test Item Value Reference Range Interpretation Comments GLUCOSE RANDOM (BEAKER) (test code 130 mg/dL 70-110 H = 652) HGB/HCT (H&H) - STAT [id number] 13:35:00 Test Item Value Reference Range Interpretation Comments HEMOGLOBIN (BEAKER) (test code = 6.7 g/dL 12.0-15.0 L 410) HEMATOCRIT (BEAKER) (test code = 20.0 % 36.0-45.0 L 411) SODIUM NA-STAT [id number] 13:35:00 Test Item Value Reference Range Interpretation Comments SODIUM (BEAKER) (test code = 381) 133 meq/L 135-148 L POTASSIUM-STAT [id number] 13:34:00 Test Item Value Reference Range Interpretation Comments POTASSIUM (BEAKER) (test code = 4.2 meq/L 3.6-5.5 379) BLOOD GAS, [id number] 13:16:00 Test Item Value Reference Range Interpretation [...] code = 1819) 80.0 % SODIUM NA-STAT [id number] 13:16:00 Test Item Value Reference Range Interpretation Comments SODIUM (BEAKER) (test code = 381) 133 meq/L 135-148 L HGB/HCT (H&H) - STAT [id number] 13:16:00 Test Item Value Reference Range Interpretation Comments HEMOGLOBIN (BEAKER) (test code = 6.3 g/dL 12.0-15.0 L 410) HEMATOCRIT (BEAKER) (test code = 19.0 % 36.0-45.0 L 411) CALCIUM, [id number] 13:15:00 Test Item Value Reference Range Interpretation Comments CALCIUM IONIZED (BEAKER) (test 0.98 mmol/L 1.12-1.27 L code = 698) PH, BLOOD (BEAKER) (test code = 7.34 1810) BLOOD GAS, [id number] 13:15:00 Test Item Value Reference Range Interpretation [...] (test code = 1819) 80.0 % GLUCOSE-STAT [id number] 13:14:00 Test Item Value Reference Range Interpretation Comments GLUCOSE RANDOM (BEAKER) (test code = 92 mg/dL 70-110 652) POTASSIUM-STAT [id number] 13:14:00 Test Item Value Reference Range Interpretation Comments POTASSIUM (BEAKER) (test code = 3.9 meq/L 3.6-5.5 379) BLOOD GAS, [id number] 10:54:00 Test Item Value Reference Range Interpretation [...] 1819) 100.0 % HGB/HCT (H&H) - STAT [id number] 10:54:00 Test Item Value Reference Range Interpretation Comments HEMOGLOBIN (BEAKER) (test code = 9.3 g/dL 12.0-15.0 L 410) HEMATOCRIT (BEAKER) (test code = 27.0 % 36.0-45.0 L 411) SODIUM NA-STAT [id number] 10:54:00 Test Item Value Reference Range Interpretation Comments SODIUM (BEAKER) (test code = 381) 132 meq/L 135-148 L GLUCOSE-STAT [id number] 10:52:00 Test Item Value Reference Range Interpretation Comments GLUCOSE RANDOM (BEAKER) (test code = 94 mg/dL 70-110 652) POTASSIUM-STAT [id number] 10:52:00 Test Item Value Reference Range Interpretation Comments POTASSIUM (BEAKER) (test code = 4.0 meq/L 3.6-5.5 379) HEMOGLOBIN [id number] 09:50:00 Test Item Value Reference Range Interpretation Comments HEMOGLOBIN A1C (BEAKER) (test code = 10.6 % 4.3-6.1 H 368) PLATELET AGGREGATION: FUNCTION [id number] 08:27:00 Test Item Value Reference Range Interpretation Comments WEAK ADP 63 % 60-91 RESULT(BEAKER) (test code = 2135) PLATELET FUNCTION 60-100% indicates SCREEN INTERP (BEAKER) normal platelet (test code = 2173) function [id number] Toshia Post MD (BEAKER) (test code = (electronic signature) 8956) PLATELET COUNT AGG 198 K/CU MM 150-450 (BEAKER) (test code = 2656) for patients on clopidogrel in past two weeksPOCT-GLUCOSE [id number] 08:11:00 Test Item Value Reference Range Interpretation Comments POC-GLUCOSE METER 116 mg/dL 70-110 H TESTED AT [facility] 6720 (BEAKER) (test code = JULIANO [place] 1538) [address] [id number] 07:10:00 Test Item Value Reference Range Interpretation Comments PHOSPHORUS (BEAKER) (test code = 4.5 mg/dL 2.3-4.7 604) [id number] 07:10:00 Test Item Value Reference Range Interpretation Comments MAGNESIUM (BEAKER) (test code = 2.1 mg/dL 1.6-2.6 627) BASIC METABOLIC [id number] 07:10:00 Test Item Value Reference Range Interpretation [...] = 700) CBC W/PLT COUNT & AUTO [id number] 06:46:00 Test Item Value Reference Range Interpretation [...] PERCENT (BEAKER) (test code = 2801) CALCIUM, [id number] 06:40:00 Test Item Value Reference Range Interpretation Comments CALCIUM IONIZED (BEAKER) (test 1.06 mmol/L 1.12-1.27 L code = 698) PH, BLOOD (BEAKER) (test code = 7.39 1810) POCT-GLUCOSE [id number] 23:22:00 Test Item Value Reference Range Interpretation Comments POC-GLUCOSE METER 165 mg/dL 70-110 H TESTED AT [facility] 6720 (BEAKER) (test code = [place]IANO [place] 1538) [address] URINE PROTEIN ELECTROPHORESIS, [id number] 18:02:00 Test Item Value Reference Range Interpretation Comments PROTEIN, URINE 305 mg/dL 0-14 H (BEAKER) (test code = 1569) ALBUMIN URINE ELP 70.9 % (BEAKER) (test code = 1018) GAMMA GLOBULIN URINE 29.1 % (BEAKER) (test code = 1015) UPEP, ID-438 (BEAKER) No monoclonal bands (test code = 2609) detected. [id number] Rocio Galindo MD (BEAKER) (test code = (electronic signature) 2609) PROTEIN ELECTROPHORESIS, [id number] 17:57:00 Test Item Value Reference Range Interpretation [...] all globulin fractions. No monoclonal bands detected. [id number] [facility] ([facility] (test code = (electronic signature) 8527) PROTEIN TOTAL SERUM, 5.5 gm/dL 6.0-8.3 L SPEP (BEAKER) (test code = 9080) POCT-GLUCOSE [id number] 17:15:00 Test Item Value Reference Range Interpretation Comments POC-GLUCOSE METER 209 mg/dL 70-110 H TESTED AT [facility] 6720 (BEAKER) (test code = [facility] 1538) [address] BLOOD GAS, [id number] 15:54:00 Test Item Value Reference Range Interpretation [...] TEMPERATURE (BEAKER) (test 37.0 C code = 1811) FIO2 (BEAKER) (test code = 1819) 36.0 % RAD, CHEST, 1 VIEW, NON [id number] 14:07:00Reason for exam:->SOB, hypoxemiaShould this be performed [...] Regan Cespedes Verified Date/Time: 05/19/2017 14:07:07 Reading Location:[address] Consult Reading Room POCT-GLUCOSE [id number] 11:26:00 Test Item Value Reference Range Interpretation Comments POC-GLUCOSE METER 262 mg/dL 70-110 H TESTED AT [place] [address] ([facility]) (test code = [facility] 1538) [address] POCT-GLUCOSE [id number] 07:37:00 Test Item Value Reference Range Interpretation Comments POC-GLUCOSE METER 170 mg/dL 70-110 H TESTED AT [place] [address] ([facility]) (test code = [facility] 1538) [address] CALCIUM, [id number] 06:06:00 Test Item Value Reference Range Interpretation Comments CALCIUM IONIZED (BEAKER) (test 1.05 mmol/L 1.12-1.27 L code = 698) PH, BLOOD ([facility]) (test code = 7.41 1810) [id number] 05:38:00 Test Item Value Reference Range Interpretation Comments PHOSPHORUS (BEAKER) (test code = 3.9 mg/dL 2.3-4.7 604) [id number] 05:38:00 Test Item Value Reference Range Interpretation Comments MAGNESIUM (BEAKER) (test code = 2.2 mg/dL 1.6-2.6 627) BASIC METABOLIC [id number] 05:38:00 Test Item Value Reference Range Interpretation [...] PATIEN TS. CBC W/PLT COUNT & AUTO [id number] 05:09:00 Test Item Value Reference Range Interpretation [...] PERCENT (BEAKER) (test code = 2806) POCT-GLUCOSE [id number] 22:08:00 Test Item Value Reference Range Interpretation Comments POC-GLUCOSE METER 263 mg/dL 70-110 H TESTED AT [place] [address] ([facility]) (test code = [facility] 1538) [address] POCT-GLUCOSE [id number] 17:20:00 Test Item Value Reference Range Interpretation Comments POC-GLUCOSE METER 233 mg/dL 70-110 H TESTED AT [place] [address] (BEAKER) (test code = [facility] 1538) [address] POCT-GLUCOSE [id number] 08:28:00 Test Item Value Reference Range Interpretation Comments POC-GLUCOSE METER 154 mg/dL 70-110 H TESTED AT [place] [address] ([facility]) (test code = [facility] 1538) [address] BASIC METABOLIC [id number] 06:41:00 Test Item Value Reference Range Interpretation [...] S NOT APPLICABLE FOR DIALYSIS PATIEN TS. [id number] 06:35:00 Test Item Value Reference Range Interpretation Comments PHOSPHORUS (BEAKER) (test code = 4.1 mg/dL 2.3-4.7 604) [id number] 06:35:00 Test Item Value Reference Range Interpretation Comments MAGNESIUM (BEAKER) (test code = 2.1 mg/dL 1.6-2.6 627) CALCIUM, [id number] 06:22:00 Test Item Value Reference Range Interpretation Comments CALCIUM IONIZED (BEAKER) (test 1.10 mmol/L 1.12-1.27 L code = 698) PH, BLOOD (BEAKER) (test code = 7.38 1810) CBC W/PLT COUNT & AUTO [id number] 06:04:00 Test Item Value Reference Range Interpretation [...] PERCENT (BEAKER) (test code = 2800) POCT-GLUCOSE [id number] 03:44:00 Test Item Value Reference Range Interpretation Comments POC-GLUCOSE METER 220 mg/dL 70-110 H TESTED AT [facility] 6720 (BEAKER) (test code = JULIANO REYEZ 1538) [id number] POCT-GLUCOSE [id number] 18:27:00 Test Item Value Reference Range Interpretation Comments POC-GLUCOSE METER 256 mg/dL 70-110 H TESTED AT [facility] 6720 (BEAKER) (test code = [facility] 1538) [address] POCT-GLUCOSE [id number] 15:45:00 Test Item Value Reference Range Interpretation Comments POC-GLUCOSE METER 278 mg/dL 70-110 H TESTED AT [place] [address] ([facility]) (test code = [facility] 1538) [address] POCT-GLUCOSE [id number] 13:22:00 Test Item Value Reference Range Interpretation Comments POC-GLUCOSE METER 278 mg/dL 70-110 H TESTED AT [place] [address] ([facility]) (test code = [facility] 1538) [address] PLATELET AGGREGATION: FUNCTION [id number] 13:18:00 Test Item Value Reference Range Interpretation Comments WEAK ADP 66 % 60-91 RESULT([facility]) (test code = 2135) PLATELET FUNCTION 60-100% indicates SCREEN INTERP ([facility]) normal platelet (test code = 2173) function [id number] Rigoberto Duenas MD ([facility]) (test code = (electronic signature) 5992) PLATELET COUNT AGG 204 K/CU MM 150-450 ([facility]) (test code = 2656) POCT-GLUCOSE [id number] 08:27:00 Test Item Value Reference Range Interpretation Comments POC-GLUCOSE METER 189 mg/dL 70-110 H TESTED AT [place] [address] ([facility]) (test code = [facility] 1538) [address] CALCIUM, [id number] 06:12:00 Test Item Value Reference Range Interpretation Comments CALCIUM IONIZED (BEAKER) (test 1.07 mmol/L 1.12-1.27 L code = 698) PH, BLOOD (BEAKER) (test code = 7.36 1810) [id number] 05:43:00 Test Item Value Reference Range Interpretation Comments PHOSPHORUS (BEAKER) (test code = 3.6 mg/dL 2.3-4.7 604) [id number] 05:43:00 Test Item Value Reference Range Interpretation Comments MAGNESIUM (BEAKER) (test code = 2.1 mg/dL 1.6-2.6 627) BASIC METABOLIC [id number] 05:43:00 Test Item Value Reference Range Interpretation [...] PATIEN TS. CBC W/PLT COUNT & AUTO [id number] 05:05:00 Test Item Value Reference Range Interpretation [...] PERCENT (BEAKER) (test code = 2801) POCT-GLUCOSE [id number] 21:32:00 Test Item Value Reference Range Interpretation Comments POC-GLUCOSE METER 176 mg/dL 70-110 H TESTED AT [place] [address] ([facility]) (test code = JULIANO Osborne [facility] 1538) [address] POCT-GLUCOSE [id number] 20:27:00 Test Item Value Reference Range Interpretation Comments POC-GLUCOSE METER 161 mg/dL 70-110 H TESTED AT [place] [address] ([facility]) (test code = JULIANO Osborne [facility] 1538) [address]007 POCT-GLUCOSE [id number] 18:23:00 Test Item Value Reference Range Interpretation Comments POC-GLUCOSE METER 185 mg/dL 70-110 H TESTED AT [place] [address] ([facility]) (test code = JULIANO Osborne [facility] 1538) 18158 POCT-GLUCOSE [id number] 13:26:00 Test Item Value Reference Range Interpretation Comments POC-GLUCOSE METER 282 mg/dL 70-110 H TESTED AT [place] [address] ([facility]) (test code = JULIANO Osborne [facility] 1538) [address] URINE [id number] 10:12:00 Test Item Value Reference Range Interpretation Comments CULTURE (BEAKER) (test >100,000 col/mL skin code = 1095) todd POCT-GLUCOSE [id number] 09:01:00 Test Item Value Reference Range Interpretation Comments POC-GLUCOSE METER 268 mg/dL 70-110 H TESTED AT [facility] 6720 (BEAKER) (test code = [place]O [place] 1538) [address] CALCIUM, [id number] 05:39:00 Test Item Value Reference Range Interpretation Comments CALCIUM IONIZED (BEAKER) (test 0.84 mmol/L 1.12-1.27 L code = 698) PH, BLOOD (BEAKER) (test code = 7.35 1810) BASIC METABOLIC [id number] 05:07:00 Test Item Value Reference Range Interpretation [...] S NOT APPLICABLE FOR DIALYSIS PATIEN TS. [id number] 05:06:00 Test Item Value Reference Range Interpretation Comments PHOSPHORUS (BEAKER) (test code = 3.2 mg/dL 2.3-4.7 604) [id number] 05:06:00 Test Item Value Reference Range Interpretation Comments MAGNESIUM (BEAKER) (test code = 2.3 mg/dL 1.6-2.6 627) CBC W/PLT COUNT & AUTO [id number] 04:42:00 Test Item Value Reference Range Interpretation [...] = 2801) RHEUMATOID FACTOR AB, REFLEX TO [id number] 01:52:00 Test Item Value Reference Range Interpretation Comments RHEUMATOID FACTOR (ROBERT) (test Negative code = 573) POCT-GLUCOSE [id number] 21:57:00 Test Item Value Reference Range Interpretation Comments POC-GLUCOSE METER 105 mg/dL 70-110 TESTED AT [facility] 6720 (ROBERT) (test code = JULIANO Osborne [facility] 1538) [address] POCT-GLUCOSE [id number] 18:11:00 Test Item Value Reference Range Interpretation Comments POC-GLUCOSE METER 312 mg/dL 70-110 H Notified Dylon Hassan MD/TESTED (ROBERT) (test code = AT [facility] 6720 [facility] 1538) [facility] 7703 0 PET, CARDIAC PERFUSION MULTIPLE STUDIES, REST AND [id number] 16:28:00 Reason for exam:->pvcs, known cadFINAL REPORT PROCEDURE: Rest/Stress MYOCARDIAL PERFUSION PET with regadenoson\\XA9\\ CPT CODE: 40315 INDICATION: Defined extent and severity of known [...] is 23%. LVEF at stress is 36%. 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 This is unchanged. Left lung is grossly clear. Cardiac silhouette is enlarged. IMPRESSION: 1. No acute cardiopulmonary disease. Signed: Sixto Monk [facility] Verified Date/Time: 05/15/2017 15:56:39 Reading Location: [facility] Rad iology Reading Room POCT-GLUCOSE [id number] 12:54:00 Test Item Value Reference Range Interpretation Comments POC-GLUCOSE METER 308 mg/dL 70-110 H Notified Dylon Hassan MD/TESTED (ROBERT) (test code = AT [facility] 6720 [facility] 1538) [facility] 7703 0 U/S, RENAL WITH [id number] 11:04:00Reason for exam:->tracy, htnShould this be performed [...] Date/Time: 05/15/2017 11:04:01 Reading Location: [place] [id number] Ultrasound Reading Room ANA TITER AND [id number] 10:57:00 Test Item Value Reference Range Interpretation Comments ROGER TITER (BEAKER) (test code = :160 1541) ROGER PATTERN (BEAKER) (test code = Speckled 1781) ANTI-NUCLEAR ANTIBODY (ROGER)2017-05-15 10:56:00 Test Item Value Reference Range Interpretation Comments ANTI-NUCLEAR ANTIBODY (ROGER) (BEAKER) Positive Negative A (test code = 418) CALCIUM, [id number] 06:00:00 Test Item Value Reference Range Interpretation Comments CALCIUM IONIZED (BEAKER) (test 1.07 mmol/L 1.12-1.27 L code = 698) PH, BLOOD (BEAKER) (test code = 7.28 1810) HEPATITIS PANEL, [id number] 05:01:00 Test Item Value Reference Range Interpretation Comments HEPATITIS A IGM ANTIBODY (BEAKER) Nonreactive Nonreactive (test code = 498) HEPATITIS B CORE IGM ANTIBODY Nonreactive Nonreactive (BEAKER) (test code = 645) HEPATITIS C ANTIBODY (BEAKER) Nonreactive Nonreactive (test code = 367) HEPATITIS B SURFACE ANTIGEN (2) Nonreactive Nonreactive (BEAKER) (test code = 2585) BASIC METABOLIC [id number] 04:48:00 Test Item Value Reference Range Interpretation [...] NOT APPLICABLE FOR DIALYSIS PATIEN TS. URIC [id number] 04:41:00 Test Item Value Reference Range Interpretation Comments URIC ACID (BEAKER) (test code = 10.3 mg/dL 2.6-7.2 H 773) [id number] 04:41:00 Test Item Value Reference Range Interpretation Comments MAGNESIUM (BEAKER) (test code = 2.0 mg/dL 1.6-2.6 627) [id number] 04:41:00 Test Item Value Reference Range Interpretation Comments PHOSPHORUS (BEAKER) (test code = 4.2 mg/dL 2.3-4.7 604) COMPLEMENT COMPONENT [id number] 04:38:00 Test Item Value Reference Range Interpretation Comments C4 COMPLEMENT (BEAKER) (test code = 28 mg/dL 15-57 394) COMPLEMENT COMPONENT [id number] 04:38:00 Test Item Value Reference Range Interpretation Comments C3 COMPLEMENT (BEAKER) (test code = 103 mg/dL 82-193 393) CBC W/PLT COUNT & AUTO [id number] 04:22:00 Test Item Value Reference Range Interpretation [...] PERCENT (BEAKER) (test code = 2801) POCT-GLUCOSE [id number] 21:46:00 Test Item Value Reference Range Interpretation Comments POC-GLUCOSE METER 173 mg/dL 70-110 H TESTED AT [facility] 6720 ([facility]) (test code = JULIANO [place] 1538) [address] POCT-GLUCOSE [id number] 21:46:00 Test Item Value Reference Range Interpretation Comments POC-GLUCOSE METER 154 mg/dL 70-110 H TESTED AT [facility] 6720 (BEAKER) (test code = JULIANO [place] 1538) [address] POCT-GLUCOSE [id number] 18:17:00 Test Item Value Reference Range Interpretation Comments POC-GLUCOSE METER 175 mg/dL 70-110 H TESTED AT [facility] 6720 ([facility]) (test code = JULIANO Osborne [facility] 1538) [address] RAD, CHEST, 1 VIEW, NON [id number] 14:56:00Reason for exam:->SOBShould this be performed at the bedside?->YesFINAL REPORT INDICATION: SOB COMPARISON: May 13, 2017 TECHNIQUE: Chest radiograph, single view, portable technique. FINDINGS / IMPRESSION: Enlarged heart shadow, small rightpleural effusion, and pulmonary venous congestion, again demonstrated. No pneumothorax or consolidation. Osseous structures unremarkable. Signed: Thania Dwyer Verified Date/Time: 05/14/2017 14:56:58 Reading Location: [facility] Mammo Reading Room POCT-GLUCOSE [id number] 12:18:00 Test Item Value Reference Range Interpretation Comments POC-GLUCOSE METER 313 mg/dL 70-110 H TESTED AT [facility] 6720 ([facility]) (test code = JULIANO Osborne [facility] 1538) [address] HIV-1 ANTIGEN WITH HIV-1/2 [id number] 12:07:00 Test Item Value Reference Range Interpretation Comments HIV-1 ANTIGEN WITH HIV 1\\T\\2 Nonreactive Nonreactive ANTIBODY (2) ([facility]) (test code = 2586) CALCIUM, [id number] 06:37:00 Test Item Value Reference Range Interpretation Comments CALCIUM IONIZED (BEAKER) (test 1.08 mmol/L 1.12-1.27 L code = 698) PH, BLOOD (BEAKER) (test code = 7.25 1810) BASIC METABOLIC [id number] 06:26:00 Test Item Value Reference Range Interpretation [...] pg/mL 0-100 H (test code = 700) [id number] 06:25:00 Test Item Value Reference Range Interpretation Comments PHOSPHORUS (BEAKER) (test code = 5.7 mg/dL 2.3-4.7 H 604) [id number] 06:25:00 Test Item Value Reference Range Interpretation Comments MAGNESIUM (BEAKER) (test code = 1.5 mg/dL 1.6-2.6 L 627) CBC W/PLT COUNT & AUTO [id number] 06:07:00 Test Item Value Reference Range Interpretation [...] PERCENT (BEAKER) (test code = 2801) POCT-GLUCOSE [id number] 22:38:00 Test Item Value Reference Range Interpretation Comments POC-GLUCOSE METER 262 mg/dL 70-110 H TESTED AT [facility] 6720 (BEAKER) (test code = MATTHIASAMANDA Osborne [facility] 1538) [address] PROTEIN, RANDOM [id number] 22:18:00 Test Item Value Reference Range Interpretation Comments PROTEIN, URINE (BEAKER) (test code 641 mg/dL 0-14 H = 1569) CREATININE, RANDOM [id number] 22:07:00 Test Item Value Reference Range Interpretation Comments CREATININE URINE (BEAKER) (test 124.9 mg/dL code = 375) Reference Range: No NormalsURINALYSIS W/ [id number] 22:03:00 Test Item Value Reference Range Interpretation [...] SOURCE(BEAKER) (test code = Urine, Voided 2795) [id number] 19:49:00 Test Item Value Reference Range Interpretation Comments SODIUM (BEAKER) (test 136 meq/L 136-145 code = 381) POTASSIUM (BEAKER) 5.1 meq/L 3.5-5.1 Specimen slightly (test code = 379) hemolyzed CHLORIDE (BEAKER) 104 meq/L 98-107 (test code = 382) CO2 (BEAKER) (test 25 meq/L 22-29 code = 355) Call if K > 5POCT-GLUCOSE [id number] 11:37:00 Test Item Value Reference Range Interpretation Comments POC-GLUCOSE METER 293 mg/dL 70-110 H TESTED AT [facility] 6720 (BEAKER) (test code = JULIANO [place] 1538) [address] RAD, CHEST, 1 VIEW, NON [id number] 10:22:00Reason for exam:->SOBShould this be performed at the bedside?->YesFINAL REPORT Chest one view Discussion: There is cardiomegaly and interstitial congestion. A small right-sided effusion is noted. No pneumothorax. IMPRESSIONS: Suspected CHF. Signed: Jeannette Nava Verified Date/Time: 05/13/2017 10:22:34 Reading Location: [facility] Radiology Reading Room POCT-GLUCOSE METER 2017-05-13 08:34:00 Test Item Value Reference Range Interpretation Comments POC-GLUCOSE METER 178 mg/dL 70-110 H TESTED AT [place] [address] (BEAKER) (test code = JULIANO Osborne [facility] 1538) [address] POCT-GLUCOSE [id number] 06:53:00 Test Item Value Reference Range Interpretation Comments POC-GLUCOSE METER 167 mg/dL 70-110 H TESTED AT [place] [address] (BEAKER) (test code = MATTHIASMO Dylon [facility] 1538) [address] [id number] 04:48:00 Test Item Value Reference Range Interpretation Comments BLOOD UREA NITROGEN (BEAKER) (test 36 mg/dL 7-21 H code = 354) [id number] 04:48:00 Test Item Value Reference Range Interpretation Comments SODIUM (BEAKER) (test code = 381) 139 meq/L 136-145 POTASSIUM (BEAKER) (test code = 5.2 meq/L 3.5-5.1 H 379) CHLORIDE (BEAKER) (test code = 382) 109 meq/L 98-107 H CO2 (BEAKER) (test code = 355) 23 meq/L 22-29 [id number] 04:48:00 Test Item Value Reference Range Interpretation [...] WBC 0-0 (BEAKER) (test code = 413) [id number] 23:29:00 Test Item Value Reference Range Interpretation Comments ACTIVATED CLOTTING TIME 136 sec TEST ED AT [place] [address] ([facility]) (test code = [facility]) [address] [id number] 20:13:00 Test Item Value Reference Range Interpretation Comments ACTIVATED CLOTTING TIME 175 sec TEST ED AT [place] [address] ([facility]) (test code = [place]ULIANO [place] 441) [address] [id number] 18:36:00 Test Item Value Reference Range Interpretation Comments ACTIVATED CLOTTING TIME 202 sec TEST ED AT [place] [address] ([facility]) (test code = [place]ULIANO [place] 441) [address] [id number] 18:03:00 Test Item Value Reference Range Interpretation Comments ACTIVATED CLOTTING TIME 208 sec TEST ED AT [facility] 6720 (BEAKER) (test code = [place]IANO [place] 441) [address] BASIC METABOLIC [id number] 11:57:00 Test Item Value Reference Range Interpretation [...] NOT APPLICABLE FOR DIALYSIS PATIEN TS. PROTHROMBIN [id number] 11:15:00 Test Item Value Reference Range Interpretation [...] if on CoumadinCBC W/PLT COUNT & AUTO [id number] 11:01:00 Test Item Value Reference Range Interpretation [...] PERCENT (BEAKER) (test code = 2801) POCT-GLUCOSE [id number] 12:35:00 Test Item Value Reference Range Interpretation Comments POC-GLUCOSE METER 249 mg/dL 70-110 H TESTED AT [facility] 6720 (BEAKER) (test code = JULIANO [place] 1538) [address] POCT-GLUCOSE [id number] 09:10:00 Test Item Value Reference Range Interpretation Comments POC-GLUCOSE METER 155 mg/dL 70-110 H TESTED AT [facility] 6720 (BEAKER) (test code = JULIANO Osborne [place] 1538) [address] BASIC METABOLIC [id number] 05:39:00 Test Item Value Reference Range Interpretation [...] S NOT APPLICABLE FOR DIALYSIS PATIEN TS. [id number] 05:27:00 Test Item Value Reference Range Interpretation Comments PHOSPHORUS (BEAKER) (test code = 5.0 mg/dL 2.3-4.7 H 604) [id number] 05:27:00 Test Item Value Reference Range Interpretation Comments MAGNESIUM (BEAKER) (test code = 1.6 mg/dL 1.6-2.6 627) POCT-GLUCOSE [id number] 05:25:00 Test Item Value Reference Range Interpretation Comments POC-GLUCOSE METER 144 mg/dL 70-110 H TESTED AT [facility] 6720 (BEAKER) (test code = JULIANO Osborne [facility] 1538) [address] PROTHROMBIN [id number] 04:58:00 Test Item Value Reference Range Interpretation Comments PROTIME (BEAKER) (test code = 14.2 seconds 11.7-14.7 759) INR (BEAKER) (test code = 370) 1.1 <=5.9 RECOMMENDED COUMADIN/WARFARIN INR THERAPY RANGESSTANDARD DOSE: 2.0 - 3.0 Includes: PROPHYLAXIS forvenous thrombosis, systemic embolization; TREATMENT for venous thrombosis and/or pulmonary embolus.HIGH RISK: Target INR is 2.5-3.5 for patients with mechanical heart valves.POCT-GLUCOSE [id number] 23:55:00 Test Item Value Reference Range Interpretation Comments POC-GLUCOSE METER 86 mg/dL 70-110 TESTED AT [place] [address] ([facility]) (test code = [facility] [address] 1538) B-TYPE NATRIURETIC FACTOR (BNP)2017-04-22 18:13:00 Test Item Value Reference Range Interpretation Comments B-TYPE NATRIURETIC PEPTIDE 1203 pg/mL 0-100 H ([facility]) (test code = 700) POCT-GLUCOSE [id number] 17:36:00 Test Item Value Reference Range Interpretation Comments POC-GLUCOSE METER 259 mg/dL 70-110 H TESTED AT [place] [address] ([facility]) (test code = [facility] 1538) [address] HEMOGLOBIN [id number] 14:24:00 Test Item Value Reference Range Interpretation Comments HEMOGLOBIN A1C ([facility]) (test code = 10.5 % 4.3-6.1 H 368) POCT-GLUCOSE [id number] 12:34:00 Test Item Value Reference Range Interpretation Comments POC-GLUCOSE METER 207 mg/dL 70-110 H TESTED AT [place] [address] ([facility]) (test code = [facility] 1538) [address] [id number] 07:53:00 Test Item Value Reference Range Interpretation Comments PHOSPHORUS (BEAKER) (test code = 3.9 mg/dL 2.3-4.7 604) [id number] 07:53:00 Test Item Value Reference Range Interpretation Comments MAGNESIUM (BEAKER) (test code = 1.6 mg/dL 1.6-2.6 627) BASIC METABOLIC [id number] 07:53:00 Test Item Value Reference Range Interpretation [...] NOT APPLICABLE FOR DIALYSIS PATIEN TS. TROPONIN [id number] 07:29:00 Test Item Value Reference Range Interpretation [...] acidosis, acute neurological disease, and persistent tachyarrhythmia.PROTHROMBIN [id number] 07:01:00 Test Item Value Reference Range Interpretation Comments PROTIME (BEAKER) (test code = 13.8 seconds 11.7-14.7 759) INR (BEAKER) (test code = 370) 1.1 <=5.9 RECOMMENDED COUMADIN/WARFARIN INR THERAPY RANGESSTANDARD DOSE: 2.0 - 3.0 Includes: PROPHYLAXIS forvenous thrombosis, systemic embolization; TREATMENT for venous thrombosis and/or pulmonary embolus.HIGH RISK: Target INR is 2.5-3.5 for patients with mechanical heart valves.POCT-GLUCOSE [id number] 06:28:00 Test Item Value Reference Range Interpretation Comments POC-GLUCOSE METER 198 mg/dL 70-110 H TESTED AT [facility] 6720 ([facility]) (test code = [place]ULIANO [place] 1538) [address] CREATINE KINASE (CK), TOTAL AND [id number] 00:49:00 Test Item Value Reference Range Interpretation Comments CREATINE KINASE TOTAL ([facility]) 69 U/L 29-200 (test code = 380) CREATINE KINASE-MB ([facility]) (test 4.3 ng/mL 0.0-6.6 code = 750) CREATINE KINASE-MB INDEX ([facility]) 6.2 % (test code = 395) CK-MB Reference Range:<6.7 Normal6.7-10.0 Borderline>10.0 AbnormalTROPONIN [id number] 00:49:00 Test Item Value Reference Range Interpretation Comments TROPONIN I ([facility]) (test code = 0.05 ng/mL [...] acidosis, acute neurological disease, and persistent tachyarrhythmia.POCT-GLUCOSE [id number] 20:44:00 Test Item Value Reference Range Interpretation Comments POC-GLUCOSE METER 269 mg/dL 70-110 H TESTED AT [facility] 6720 ([facility]) (test code = JULIANO Osborne [place] 1538) [address]
[2021-03-25] MEDS ORDERED: ONDANSETRON 4 MG/2 ML VIAL ONE (07:51)
[2021-03-25 08:06] LABS: Absolute Lymphocytes (CBC) 0.5 K/uL (0.7-4.9); Hematocrit 39.2 % (36.0-45.0); Lymphocytes % 6.5 % (15.3-44.8); MPV 7.1 fL (7.6-11.3); Protime INR 1.18; RBC Red Blood Cell Count 4.44 M/uL (3.86-4.86)
[2021-03-25 08:38] LABS: Blood Morphology Comment NOT SEEN (NOT SEEN); Platelet Estimate ADEQ
[2021-03-25 08:57] LABS: Albumin 2.2 g/dL (3.4-5.0); Bilirubin Direct 0.2 mg/dL (0-0.2); Bilirubin Total 0.4 mg/dL (0.2-1.0); Magnesium 1.8 mg/dL (1.8-2.4); Potassium 4.2 mmol/L (3.5-5.1); Protein, Total 6.6 g/dL (6.4-8.2); Troponin (Emerg Dept Use Only) 0.04 ng/mL (0.0-0.045)
--- NOTE | 2021-03-25 09:54 | ER ---
Nurse's Notes [facility] Name: Christy Priest Age: 65 yrs Sex: Female : 1955 Arrival Date: 03/25/2021 Time: 07:16 Bed 13 Private MD: Diagnosis: Chest pain, unspecified Presentation: 03/25 07:19 Chief complaint: Patient states: N/V started last night. No fever. R sided CP for 1 ll1 day. Coronavirus screen: Vaccine status: Patient reports being unvaccinated. Client denies travel out of the [place] in the last 14 days. nausea, Client presents with at least one sign or symptom that may indicate coronavirus-19. Standard/surgical mask placed on the client. Ebola Screen: Patient denies travel to an Ebola-affected area in the 21 days before illness onset. Initial Sepsis Screen: Does the patient meet any 2 criteria? No. Patient's initial sepsis screen is negative. Does the patient have a suspected source of infection? No. Patient's initial sepsis screen is negative. Risk Assessment: Do you want to hurt yourself or someone else? Patient reports no desire to harm self or others. Onset of symptoms was March 24, 2021. 07:19 Method Of Arrival: EMS ll1 07:19 Acuity: DENNY 3 ll1 Historical: - Allergies: 07:19 Nitroglycerin; ll1 07:19 tramadol; ll1 07:19 Vancomycin; ll1 - PMHx: 07:19 diabetes mellitus; Dialysis; Hypertensive disorder; ll1 - Immunization history:: Client reports having NOT received the Covid vaccine. - Social history:: Smoking status: Patient reports the use of cigarette tobacco products, denies chronic smoking, but will smoke occasionally, Patient/guardian denies using alcohol, street drugs, The patient lives with family. - Family history:: not pertinent. Screenin:02 Abuse screen: Denies threats or abuse. Denies injuries from another. Has been eo2 threatened or abused. Nutritional screening: No deficits noted. Tuberculosis screening: No symptoms or risk factors identified. Fall Risk Fall in past 12 months (25 points). Ambulatory Aid- Crutches/Cane/Walker (15 pts). Assessment: 07:58 General: Appears uncomfortable, Behavior is calm, cooperative. Pain: Complains of pain eo2 in Chest. Neuro: Level of Consciousness is awake, alert, Oriented to person, place, time, situation, Denies dizziness, headache. Cardiovascular: Reports chest pain, shortness of breath, since this morning. Respiratory: Reports shortness of breath Airway is patent Respiratory effort is even, unlabored, Respiratory pattern is regular, symmetrical, Breath sounds are diminished bilaterally. GI: Reports nausea, "dry heaving" Patient currently denies abdominal pain. EENT: pt noted with swelling around b/l eyes, greater on the right. Derm:. Musculoskeletal: Swelling b/l LE. Vital Signs: 07:19 BP 147 / 82; Pulse 88; Resp 17; Temp 98.2; Pulse Ox 100% ; Weight 66.22 kg; Height 5 ll1 ft. 7 in. (170.18 cm); Pain 7/10; 08:02 BP 151 / 83; Pulse 82; Resp 18; Pulse Ox 100% ; eo2 09:00 BP 156 / 86; Pulse 83; Resp 14; Pulse Ox 100% ; eo2 10:00 BP 144 / 81; Pulse 83; Resp 17; Pulse Ox 100% ; eo2 11:00 BP 151 / 83; Pulse 74; Resp 16; Pulse Ox 98% ; Pain 9/10; eo2 12:00 BP 130 / 66; Pulse 74; Resp 16; Pulse Ox 98% ; eo2 12:24 Pain 6/10; eo2 12:42 Pain 6/10; eo2 13:00 BP 149 / 81; Pulse 78; Resp 17; Pulse Ox 99% ; Pain 6/10; eo2 14:00 BP 143 / 71; Pulse 75; Resp 17; Pulse Ox 97% on R/A; Pain 6/10; eo2 19:16 BP 142 / 85; Pulse 75; Resp 17; Pulse Ox 98% ; tt3 07:19 Body Mass Index 22.87 (66.22 kg, 170.18 cm) ll1 ED Course: 07:16 Patient arrived in ED. eb 07:16 Annmarie Petersen MD is Attending Physician. ma2 07:19 Arm band placed on Patient placed in an exam room, on a stretcher. ll1 07:21 Triage completed. ll1 07:25 Serenity George, GUILHERME is Primary Nurse. eo2 07:41 XRAY Chest (1 view) In Process Unspecified. EDMS 07:46 Initial lab(s) drawn, by me, sent to lab. Inserted saline lock: 22 gauge in right ll3 antecubital area, using aseptic technique. Blood collected. 07:48 EKG done, by ED staff, reviewed by Annmarie Petersen MD. ll3 08:02 Patient has correct armband on for positive identification. Bed in low position. Call eo2 light in reach. Side rails up X2. site monitor on. Pulse ox on. NIBP on. Door closed. Noise minimized. Warm blanket given. 08:02 No provider procedures requiring assistance completed. eo2 08:06 CBC with Automated Diff Sent. mh5 08:06 Liver (Hepatic) Function Sent. mh5 08:06 Magnesium Sent. mh5 08:06 Basic Metabolic Panel Sent. mh5 08:06 Basic Metabolic Panel Sent. mh5 08:06 CBC with Diff Sent. mh5 08:06 LFT's Sent. mh5 08:06 Magnesium Sent. mh5 08:06 NT PRO-BNP Sent. mh5 08:06 PT-INR Sent. mh5 08:06 Troponin (emerg Dept Use Only) Sent. mh5 09:29 SARS-COV-2 RT PCR (Document "Date of Onset" if Symptomatic) Sent. mh5 09:29 SARS-COV-2 RT PCR Sent. mh5 09:29 COVID swab sent to lab. 5 09:54 Eric Kuhn MD is Hospitalizing Provider. pa2 13:47 CBC with Automated Diff Sent. 5 13:47 Basic Metabolic Panel Sent. mh5 13:47 Troponin I Sent. 5 19:18 Primary Nurse role handed off by Serenity George, GUILHERME mw2 19:21 Report given to Gaye VANEGAS. eo2 Administered Medications: 07:53 Drug: Zofran (Ondansetron) 4 mg Route: IVP; Site: left antecubital; vg1 08:53 Follow up: Response: No adverse reaction; Nausea is decreased eo2 10:35 Drug: Aspirin Chewable Tablet 324 mg Route: PO; eo2 11:35 Follow up: Response: No adverse reaction eo2 11:24 Drug: [place] (HYDROcodone-acetaminophen) 10 mg-325 mg 1 tabs Route: PO; eo2 12:42 Follow up: Pain 6/10 Adult; Response: No adverse reaction; Pain is decreased eo2 Outcome: 09:53 Discharge ordered by . ma2 09:54 Decision to Hospitalize by Provider. ma2 03/26 12:38 Patient left the ED. ll1 Signatures: Dispatcher [employer] Jovita Romero [facility] Annmarie Petersen MD MD ma2 Margarita Stanton 2 Rocio Nguyen Victoria, RN RN 1 Gustabo Montalvo RN RN ll1 Carmelo Segal 3 Mary Cormier RN RN ll3 Serenity George RN RN eo2 Corrections: (The following items were deleted from the chart) 03/25 12:42 12:24 Response: No adverse reaction; Pain is decreased eo2 eo2
--- NOTE | 2021-03-25 09:55 | EDPHYS ---
Physician Documentation [facility] [place] [place] Name: Christy Priest Age: 65 yrs Sex: Female : 1955 Arrival Date: 03/25/2021 Time: 07:16 Bed 13 Private MD: ED Physician Annmarie Petersen HPI: 03/25 08:45 This 65 yrs old Female presents to ER via EMS with complaints of Chest pain. ma2 08:45 The patient or guardian reports chest pain that is located primarily in the anterior ma2 chest wall. Onset: gradually, 1 day(s) ago. Associated signs and symptoms: Pertinent negatives: dizziness, lower extremity swelling. Severity of pain: At its worst the pain was mild in the emergency department the pain is unchanged. The patient has experienced similar episodes in the past. . Historical: - Allergies: 07:19 Nitroglycerin; ll1 07:19 tramadol; ll1 07:19 Vancomycin; ll1 - PMHx: 07:19 diabetes mellitus; Dialysis; Hypertensive disorder; ll1 - Immunization history:: Client reports having NOT received the Covid vaccine. - Social history:: Smoking status: Patient reports the use of cigarette tobacco products, denies chronic smoking, but will smoke occasionally, Patient/guardian denies using alcohol, street drugs, The patient lives with family. - Family history:: not pertinent. ROS: 08:45 Constitutional: Negative for fever, chills, and weight loss. ma2 08:45 All other systems are negative. Exam: 08:45 Constitutional: This is a well developed, well nourished patient who is awake, alert, ma2 and in no acute distress. Head/Face: Normocephalic, atraumatic. Eyes: Pupils equal round and reactive to light, extra-ocular motions intact. Lids and lashes normal. Conjunctiva and sclera are non-icteric and not injected. Cornea within normal limits. Periorbital areas with no swelling, redness, or edema. ENT: Nares patent. No nasal discharge, no septal abnormalities noted. Tympanic membranes are normal and external auditory canals are clear. Oropharynx with no redness, swelling, or masses, exudates, or evidence of obstruction, uvula midline. Mucous membranes moist. Neck: Trachea midline, no thyromegaly or masses palpated, and no cervical lymphadenopathy. Supple, full range of motion without nuchal rigidity, or vertebral point tenderness. No Meningismus. Chest/axilla: Normal chest wall appearance and motion. Nontender with no deformity. No lesions are appreciated. Cardiovascular: Regular rate and rhythm with a normal S1 and S2. No gallops, murmurs, or rubs. Normal PMI, no JVD. No pulse deficits. Respiratory: Lungs have equal breath sounds bilaterally, clear to auscultation and percussion. No rales, rhonchi or wheezes noted. No increased work of breathing, no retractions or nasal flaring. Abdomen/GI: Soft, non-tender, with normal bowel sounds. No distension or tympany. No guarding or rebound. No evidence of tenderness throughout. Skin: Warm, dry with normal turgor. Normal color with no rashes, no lesions, and no evidence of cellulitis. MS/ Extremity: Pulses equal, no cyanosis. Neurovascular intact. Full, normal range of motion. Neuro: Awake and alert, GCS 15, oriented to person, place, time, and situation. Cranial nerves II-XII grossly intact. Motor strength 5/5 in all extremities. Sensory grossly intact. Cerebellar exam normal. Normal gait. Vital Signs: 07:19 BP 147 / 82; Pulse 88; Resp 17; Temp 98.2; Pulse Ox 100% ; Weight 66.22 kg; Height 5 ll1 ft. 7 in. (170.18 cm); Pain 7/10; 08:02 BP 151 / 83; Pulse 82; Resp 18; Pulse Ox 100% ; eo2 09:00 BP 156 / 86; Pulse 83; Resp 14; Pulse Ox 100% ; eo2 10:00 BP 144 / 81; Pulse 83; Resp 17; Pulse Ox 100% ; eo2 11:00 BP 151 / 83; Pulse 74; Resp 16; Pulse Ox 98% ; Pain 9/10; eo2 12:00 BP 130 / 66; Pulse 74; Resp 16; Pulse Ox 98% ; eo2 12:24 Pain 6/10; eo2 12:42 Pain 6/10; eo2 13:00 BP 149 / 81; Pulse 78; Resp 17; Pulse Ox 99% ; Pain 6/10; eo2 14:00 BP 143 / 71; Pulse 75; Resp 17; Pulse Ox 97% on R/A; Pain 6/10; eo2 19:16 BP 142 / 85; Pulse 75; Resp 17; Pulse Ox 98% ; tt3 07:19 Body Mass Index 22.87 (66.22 kg, 170.18 cm) ll1 MDM: 09:52 Differential diagnosis: abnormal EKG, anxiety, coronary artery disease stable angina. ia2 HEART Score: History: Moderately Suspicious (1), ECG: Non specific repolarization disturbance / LBTB / PM (1), Age: > or = 65 years (2), Risk Factors: 1 or 2 risk factors (1), Troponin: < or = 1 x Normal Limit (0). The patient was given aspirin in the Emergency Department. Data reviewed: vital signs, nurses notes. Counseling: I had a detailed discussion with the patient and/or guardian regarding: the historical points, exam findings, and any diagnostic results supporting the discharge/admit diagnosis, the presence of at least one elevated blood pressure reading (>120/80) during this emergency department visit, lab results, radiology results, the need for outpatient follow up. 09:53 [facility] screened. [facility] 03/25 07:19 Order name: Basic Metabolic Panel [facility] 03/25 07:19 Order name: CBC with Diff [facility] 03/25 07:19 Order name: LFT's [facility] 03/25 07:19 Order name: Magnesium [facility] 03/25 07:19 Order name: NT PRO-BNP; Complete Time: 09:45 [facility] 03/25 07:19 Order name: PT-INR; Complete Time: 09:45 [facility] 03/25 07:19 Order name: Troponin (emerg Dept Use Only); Complete Time: 09:45 [facility] 03/25 07:19 Order name: Basic Metabolic Panel; Complete Time: 09:45 [facility] 03/25 07:19 Order name: CBC with Automated Diff; Complete Time: 09:45 [facility] 03/25 07:19 Order name: Liver (Hepatic) Function; Complete Time: 09:45 EDMS 03/25 07:19 Order name: Magnesium; Complete Time: 09:45 [facility] 03/25 08:38 Order name: Manual Differential; Complete Time: 09:45 EDMS 03/25 08:51 Order name: SARS-COV-2 RT PCR (Document "Date of Onset" if Symptomatic) [facility] 03/25 08:51 Order name: SARS-COV-2 RT PCR; Complete Time: 11:02 EDMS 03/25 07:19 Order name: XRAY Chest (1 view); Complete Time: 11:02 ma2 03/25 07:19 Order name: EKG; Complete Time: 07:20 ma2 03/25 11:58 Order name: Basic Metabolic Panel; Complete Time: 11:02 EDMS 03/25 11:58 Order name: Troponin I; Complete Time: 11:02 EDMS 03/25 11:59 Order name: Heart Healthy EDMS 03/25 11:59 Order name: CBC with Automated Diff; Complete Time: 11:02 EDMS 03/25 19:08 Order name: Glucose, Ancillary Testing; Complete Time: 11:02 EDMS 03/26 06:39 Order name: Glucose, Ancillary Testing; Complete Time: 11:02 EDMS 03/26 07:01 Order name: CBC without Diff; Complete Time: 11:02 EDMS 03/26 07:05 Order name: Renal Panel; Complete Time: 11:02 EDMS 03/26 07:09 Order name: Troponin I; Complete Time: 11:02 EDMS 03/26 08:00 Order name: Glucose, Ancillary Testing; Complete Time: 11:02 EDMS 03/26 12:14 Order name: Glucose, Ancillary Testing EDMS 03/25 07:19 Order name: Cardiac monitoring; Complete Time: 07:49 ma2 03/25 07:19 Order name: EKG - Nurse/Tech; Complete Time: 07:47 ma2 03/25 07:19 Order name: IV Saline Lock; Complete Time: 07:47 ma2 03/25 07:19 Order name: Labs collected and sent; Complete Time: 07:49 ma2 03/25 07:19 Order name: O2 Per Protocol; Complete Time: 07:49 ma2 03/25 07:19 Order name: O2 Sat Monitoring; Complete Time: 07:49 ma2 Administered Medications: 07:53 Drug: Zofran (Ondansetron) 4 mg Route: IVP; Site: left antecubital; vg1 08:53 Follow up: Response: No adverse reaction; Nausea is decreased eo2 10:35 Drug: Aspirin Chewable Tablet 324 mg Route: PO; eo2 11:35 Follow up: Response: No adverse reaction eo2 11:24 Drug: [place] (HYDROcodone-acetaminophen) 10 mg-325 mg 1 tabs Route: PO; eo2 12:42 Follow up: Pain 6/10 Adult; Response: No adverse reaction; Pain is decreased eo2 Disposition Summary: 03/25/21 09:54 Hospitalization Ordered Hospitalization Status: Observation ma2 Provider: Eric Kuhn Condition: Stable(03/25/21 09:54) ma2 Problem: new ma2 Symptoms: are unchanged ma2 Bed/Room Type: [facility] Location: Telemetry/MedSurg (observation)(03/26/21 09:49) [facility] Room Assignment: 217(03/26/21 09:49) [facility] Diagnosis - Chest pain, unspecified(03/25/21 09:54) ma Forms: - Medication Reconciliation Form ma2 - SBAR form ma2 Signatures: Dispatcher [employer] EDQuan Schmidt, [employer] pm1 Mauro Ballesteros RN RN Annmarie Montes MD MD ma2 Arlette Glass RN RN 1 Gustabo Montalvo RN RN ll1 Serenity George RN RN eo2 Corrections: (The following items were deleted from the chart) 09:54 09:53 Home ma2 ma2 09:54 09:53 Stable ma2 ma2 09:54 09:53 Chest pain, unspecified ma2 ma2 17:54 09:54 Telemetry/MedSurg (observation) ia2 1 17:54 09:54 ma2 1 03/26 09:49 03/25 17:54 [facility] ER HOLD 1 [facility] 03/26 09:49 12 17:54 ERHOLD- [place] [id number]
[2021-03-25] MEDS ORDERED: ASPIRIN 81 MG CHEWABLE TABLET ONE (10:27)
[2021-03-25] MEDS ORDERED: HYDROCODONE/APAP 10/325 TAB ONE (11:03)
[2021-03-25] MEDS ORDERED: NITROGLYCERIN 0.4 MG/TAB SL PRN (11:52)
--- NOTE | 2021-03-25 11:59 | P.HP ---
Certification for Inpatient Patient admitted to: Inpatient With expected LOS: <2 Midnights Practitioner: I am a practitioner with admitting privileges, knowledge of patient current condition, hospital course, and medical plan of care. Services: Services provided to patient in accordance with Admission requirements found in Title 42 Section 412.3 of the Code of Federal Regulations Patient History Date of Service: 03/25/21 Reason for admission: Pain rule out NE History of Present Illness: Patient is a 65 years of age admitted with sudden onset of retrosternal severe chest pain radiating to the right neck into the right arm she has a history of coronary artery disease and has had stents placed appears to be in significant discomfort denies any previous chest pain on exertion patient is diabetic and on dialysis has risk factors for coronary artery disease denies any shortness of breath Allergies morphine Allergy (Severe, Verified 10/11/20 04:32) Anaphylaxis vancomycin Allergy (Intermediate, Verified 10/11/20 04:32) Shortness of breath basil Allergy (Verified 10/11/20 04:32) Nausea/Vomiting tramadol Allergy (Verified 10/11/20 04:32) Nausea/Vomiting trazodone Allergy (Verified 10/11/20 04:32) Nausea/Vomiting nitroglycerin Adverse Reaction (Mild, Verified 10/11/20 04:32) Nausea/Vomiting Home Medications: Aspirin 81 mg PO DAILY 06/13/20 Clopidogrel Bisulfate [Plavix*] 75 mg PO DAILY 06/13/20 Fluticasone [Flovent Hfa 110*] 2 puff IN DAILY 06/13/20 Furosemide [Lasix*] 40 mg PO BID 06/14/20 Gabapentin [Neurontin*] 100 mg PO BID 06/14/20 Ipratropium Neb [Atrovent*] 0.5 mg NEB [id number] #60 amp 10/12/20 Isosorbide Dinitrate 30 mg PO DAILY #30 tablet 10/12/20 Dicyclomine HCl 1 tab PO Q6H PRN 12/06/20 Vit/Fe Fumarate/FA [ 1 Plus 1 Tablet] 1 tab PO DAILY 12/06/20 Sevelamer Carbonate [Renvela*] 2 tab PO TIDWM 12/06/20 Cefpodoxime Proxetil 100 mg PO Q48H #3 tablet 12/22/20 Cholecalciferol (Vitamin D3) [Vitamin D3] 4,000 unit PO DAILY #60 capsule 01/04/21 Sertraline [Zoloft*] 50 mg PO DAILY #30 tab 02/26/21 Thiamine HCl [Vitamin B-1*] 100 mg PO DAILY #30 tablet 02/26/21 prednisoLONE [Prelone*] 5 ml PO BID #60 ml 02/26/21 - Past Medical/Surgical History Diabetic: Yes -: COPD -: Hypertension -: CAD, CABG x4 vessels (August 2017) -: Diabetes mellitus type 2, insulin-dependent -: Chronic combined systolic/diastolic CHF -: Uterine cancer status post hysterectomy -: Chronic renal disease, stage IV -: TB as a child - Negative 2017 -: Hyperlipidemia -: Iron deficiency anemia -: WEST -: ESRD on HD -: Rectal surgery -: Hysterectomy -: Cholecystectomy -: Gastric surgery -: Appendectomy -: CABG x4 vessel -: RLE Femoral popliteal bypass -: Left great toe amputation Psychosocial/ Personal History: The patient is a . Her son lives with her. She has 3 children. - Family History Brother -: Heart disease, Hypertension, Cancer Notes: Father -: Heart disease, Lung disease, Cancer Notes: - Prostate surgery - Hemorrhage Mother -: GI disease Notes: Sister -: Heart disease Notes: - Respiratory failure - Social History Alcohol use: No CD- Drugs: No Caffeine use: Yes Review of Systems 10-point ROS is otherwise unremarkable Cardiovascular: Chest Pain Physical Examination - Vital Signs Temperature: 98.2 F Blood Pressure: 147/82 Pulse: 88 Respirations: 17 Pulse Ox (%): 100 (Room air) - Physical Exam General: Alert, Moderate distress Neck: Supple Respiratory: Clear to auscultation bilaterally, Diminished (Diminished at the r ight base) Cardiovascular: No edema, Normal S1 S2 Gastrointestinal: Normal bowel sounds, Soft and benign Musculoskeletal: No clubbing, No swelling Integumentary: No rashes, No breakdown Neurological: Normal speech, Normal strength at 5/5 x4 extr, Cranial nerves 3-12 intact - Studies Laboratory Data (last 24 hrs) 03/25/21 07:42: PT 13.6 H, INR 1.18 03/25/21 07:42: WBC 8.00, Hgb 12.3, Hct 39.2, Plt Count 192 03/25/21 07:42: Sodium 138, Potassium 4.2, BUN 39 H, Creatinine 3.32 H, Glucose 135 H, Magnesium 1.8, Total Bilirubin 0.4, AST 43 H, ALT 31, Alkaline Phosphatase 164 H Assessment and Plan - Problems (Diagnosis) (1) Chest pain Current Visit: Yes Status: Acute Plan: Patient is 65 years of age admitted with severe onset of retrosternal chest pain history of coronary artery disease end-stage renal disease on hemodialysis will admit for chest pain rule out NE troponins are pending EKG shows sinus tachycardia with PAC no acute ischemic changes noted will admit with full anticoagulation chest x-ray shows a moderate right-sided pleural effusion with evidence of prior CABG Qualifiers: Chest pain type: unspecified Qualified Code(s): R07.9 - Chest pain, unspecified Discharge Plan: Home Plan to discharge in: 48 Hours - Advance Directives Does patient have a Living Will: No Does patient have a Durable POA for Healthcare: No - Code Status/Comfort Care Code Status Assessed: Yes Code Status: Full Code
[2021-03-25] MEDS: INSULIN -REGULAR HUMAN 50 UNIT/0.5 ML ML SQ SCH ×2 (12:00→18:00)
[2021-03-25] MEDS: METOPROLOL TARTRATE 5 MG/5 ML INJ IV SCH ×3 (12:00→12:10)
--- NOTE | 2021-03-25 12:02 | RAD REPORT ---
EXAM DESCRIPTION: RAD - Chest Single View - 03/25/2021 7:39 am CLINICAL HISTORY: CHEST PAIN Chest pain. COMPARISON: Chest Single View dated 02/24/2021; Chest Single View dated 01/07/2021; Chest Single Vie w dated 01/03/2021; Chest Single View dated 01/02/2021 FINDINGS: Portable technique limits examination quality. Right-sided pleural effusion appears mildly smaller than on the comparative study. Mild pulmonary rosalia ma persists. The heart is mildly moderately enlarged with sternotomy wires present. Left-sided venous catheter is in place. IMPRESSION: Mild to moderate volume overload pattern noted.
[2021-03-25] MEDS ORDERED: ASPIRIN 325 MG TAB PO ONE (12:11)
[2021-03-25] MEDS: ENOXAPARIN 60 MG/0.6 ML SQ SCH (13:00)
[2021-03-25 13:59] LABS: Absolute Lymphocytes (CBC) 1.1 K/uL (0.7-4.9); Lymphocytes % 14.8 % (15.3-44.8); MPV 7.3 fL (7.6-11.3); RBC Red Blood Cell Count 3.87 M/uL (3.86-4.86)
[2021-03-25 14:58] LABS: Potassium 4.9 mmol/L (3.5-5.1)
[2021-03-25 18:02] VITALS: BMI 22.7
[2021-03-25] MEDS ORDERED: FENTANYL CITR 100 MCG/2 ML ONE (18:15)
[2021-03-25] MEDS: FENTANYL CITR 100 MCG/2 ML IV PRN (18:20)
[2021-03-25] MEDS: METOPROLOL TAR 50 MG TAB PO SCH (21:00)
[2021-03-26] MEDS ORDERED: FENTANYL CITR 100 MCG/2 ML ONE ×2 (03:54→09:20)
[2021-03-26] MEDS: FENTANYL CITR 100 MCG/2 ML IV PRN ×4 (03:57→21:27)
[2021-03-26] MEDS: INSULIN -REGULAR HUMAN 50 UNIT/0.5 ML ML SQ SCH ×5 (06:00→21:00)
[2021-03-26 06:57] LABS: Hematocrit 35.3 % (36.0-45.0)
[2021-03-26 07:05] LABS: Albumin 2.1 g/dL (3.4-5.0); Phosphorus 3.8 mg/dL (2.5-4.9); Potassium 4.8 mmol/L (3.5-5.1)
--- NOTE | 2021-03-26 08:15 | P.CNS ---
Date of Consult: 03/26/21 Reason for Consult: ESRD Requesting Physician: Oleksandr Nettles Chief Complaint: chest pain History of Present Illness: 65F w/ PMHx of ESRD presumed to be 2/2 Htn/DM on HD qTTS at [facility], EDW 69 kg, HD access: L permacath, CAD s/p CABG, Htn, DM, anemia, renal osteodystrophy, COPD, covid pna, & depression who p/w chest pain, admitted for further eval & mngt. Allergies morphine Allergy (Severe, Verified 10/11/20 04:32) Anaphylaxis vancomycin Allergy (Intermediate, Verified 10/11/20 04:32) Shortness of breath basil Allergy (Verified 10/11/20 04:32) Nausea/Vomiting tramadol Allergy (Verified 10/11/20 04:32) Nausea/Vomiting trazodone Allergy (Verified 10/11/20 04:32) Nausea/Vomiting nitroglycerin Adverse Reaction (Mild, Verified 10/11/20 04:32) Nausea/Vomiting Home Medications: Aspirin 81 mg PO DAILY 06/13/20 Clopidogrel Bisulfate [Plavix*] 75 mg PO DAILY 06/13/20 Furosemide [Lasix*] 40 mg PO BID 06/14/20 Gabapentin [Neurontin*] 100 mg PO BID 06/14/20 Dicyclomine HCl 1 tab PO Q6H PRN 12/06/20 Sevelamer Carbonate [Renvela*] 2 tab PO TIDWM 12/06/20 Sertraline [Zoloft*] 50 mg PO DAILY #30 tab 02/26/21 Thiamine HCl [Vitamin B-1*] 100 mg PO DAILY #30 tablet 02/26/21 Atorvastatin Calcium [Lipitor] 40 mg OP BEDTIME 03/26/21 Isosorbide Dinitrate 1 tab PO DAILY 03/26/21 Lisinopril [Zestril] 20 mg PO DAILY 03/26/21 - Past Medical/Surgical History Diabetic: Yes -: COPD -: Hypertension -: CAD, CABG x4 vessels (August 2017) -: Diabetes mellitus type 2, insulin-dependent -: Chronic combined systolic/diastolic CHF -: Uterine cancer status post hysterectomy -: Chronic renal disease, stage IV -: TB as a child - Negative 2017 -: Hyperlipidemia -: Iron deficiency anemia -: WEST -: ESRD on HD -: Rectal surgery -: Hysterectomy -: Cholecystectomy -: Gastric surgery -: Appendectomy -: CABG x4 vessel -: RLE Femoral popliteal bypass -: Left great toe amputation Psychosocial/ Personal History: The patient is a . Her son lives with her. She has 3 children. - Family History Brother Medical History: Heart disease, Hypertension, Cancer Notes: Father Medical History: Heart disease, Lung disease, Cancer Notes: - Prostate surgery - Hemorrhage Mother Medical History: GI disease Notes: Sister Medical History: Heart disease Notes: - Respiratory failure - Social History Smoking Status: Current some day smoker Alcohol use: No CD- Drugs: No Caffeine use: Yes Review of Systems General: Weakness Eyes: Unremarkable ENT: Unremarkable Respiratory: SOB with Excertion Cardiovascular: Chest Pain Gastrointestinal: Unremarkable Genitourinary: Unremarkable Musculoskeletal: Atrophy, Pedal edema Integumentary: Bruising Neurological: Weakness Lymphatics: Unremarkable Physical Examination Temp Pulse Resp BP Pulse Ox 97.9 F 71 17 102/80 96 03/26/21 04:00 03/26/21 04:00 03/26/21 04:27 03/26/21 04:00 03/26/21 04:27 General: Other (appears chronically ill) HEENT: Atraumatic, Normocephalic Neck: Supple, JVD not distended Respiratory: Diminished, Other (symmetric chest expansion) Cardiovascular: No rubs, No murmurs, Other (+Parasternal tenderness) Gastrointestinal: Soft and benign, No guarding Musculoskeletal: Swelling Integumentary: No warmth Neurological: Normal speech, Normal tone Urinary: Other (no bladder distention) External genitalia: Deferred Rectal: Deferred Laboratory Data (last 24 hrs) 03/25/21 07:42: WBC 8.00, Hgb 12.3, Hct 39.2, Plt Count 192 03/25/21 07:42: Sodium 138, Potassium 4.2, BUN 39 H, Creatinine 3.32 H, Glucose 135 H, Magnesium 1.8, Total Bilirubin 0.4, AST 43 H, ALT 31, Alkaline Phosphatase 164 H Conclusions/Impression: # ESRD presumed to be 2/2 Htn/DM on HD qTTS at [facility] HD received today HD tomorrow per TTS sked EDW 69 kg, HD access: L permacath Nephro-karis po daily Renal + DM diet Monitor renal panel # Chest pain, CAD, CHF +Costochondritis component. Pain meds prn. Trop neg, BNP elevated Cont cardioprudent meds # Recent COVID Pneumonia Per primary team # Htn Cont current BP med regimen # Anemia Retacrit qTTS # Renal osteodystrophy Cont Sevelamer # COPD Per primary team # DM2 Per primary team
[2021-03-26] MEDS: ENOXAPARIN 60 MG/0.6 ML SQ SCH (09:00)
[2021-03-26] MEDS: METOPROLOL TAR 50 MG TAB PO SCH ×2 (09:00→21:26)
[2021-03-26] MEDS ORDERED: METOPROLOL TAR 50 MG TAB ONE (09:19)
[2021-03-26] MEDS ORDERED: ENOXAPARIN 60 MG/0.6 ML SQ ONE (09:21)
--- NOTE | 2021-03-26 12:05 | P.PN ---
Date of Service: 03/26/21 Subjective: No acute events overnight. Patient reports pain is improved somewhat, still requiring pain medication Overall does not feel well. Denies fever/chills, no nausea/vomiting, no diarrhea, reports some generalized weakness Last dialysis was last . Did not go to dialysis Friday since it was closed for ROS: 10 point ROS as noted above, otherwise negative Physical exam GEN: Alert, oriented, appears chronically ill HEENT: Normal conjunctiva, sclera anicteric CV: Regular rate and rhythm, 1+ b/l LE edema Pulm: Nonlabored respirations, dimininshed bilaterally with mild crackles at bases ABD: Soft, nontender, nondistended Neuro: Normal speech, normal affect Problem List Chest pain, h/o CAD CAD, s/p CABG / stent ESRD on HD qTTS Acute on chronic combined CHF Hypertension DM2 with neuropathy, insulin-dependent Chronic anemia, of chronic disease HLD Initial 2 troponins steady at 0.04, repeat third troponin pending this morning Renal function stable Chest x-ray with bilateral pulmonary edema Patient's appears somewhat volume overloaded, last dialysis was last , potassium okay Nephrology consulted Patient reports she has been compliant with all of her medications, but does have a history of occasional noncompliance Is more concerning with her history of coronary artery disease and the importance of those medications She is at risk for coronary event. Cardiology consulted Pain medication as needed Time Spent Managing Pts Care (In Minutes): 35
[2021-03-26] MEDS: DICYCLOMINE HCL 10 MG CAP PO PRN (15:49)
[2021-03-26] MEDS ORDERED: DIPHENHYDRAMINE 50 MG/ML VIAL IV STA (16:54)
--- NOTE | 2021-03-26 18:11 | CON ---
Date of Consultation: 03/26/2021 Reason For Consultation: Chest pain. History Of Present Illness: A 65-year-old female with history of coronary artery disease status post cardiac bypass surgery about 4 years ago, comes in with chest pain, retrosternal, pressure-like, rad iates to the shoulder. The patient has similar symptoms when she had a heart attack in the past. Past Medical History: Coronary artery disease status post CABG, end-stage renal disease, on hemodial ysis, COPD, hypertension, diabetes, uterine cancer, hyperlipidemia. Medications: Refer to reconciliation sheet for detailed list. Allergies: ALLERGY LIST WAS REVIEWED. PLEASE REFER TO THE NURSE'S SHEET. Social History: Does not smoke or drink. Does not use any drugs. Family History: No premature coronary artery disease, but there is a history of lung cancer on the f ather's side. Review of Systems: All systems reviewed and they were negative except for what mentioned in HPI. Physical Examination: Vital Signs: Temperature is 97.4, pulse 61, breathing at 16, blood pressure 108/54, saturating 95%. General: Pleasant middle-aged female, in no apparent distress. Head and Neck: Pupils are equal, reactive to light. Intact eye movements. No JVD. No cervical lym phadenopathy. Neck: Supple. Thyroid is not enlarged. Lungs: Clear to auscultation bilaterally. No rhonchi, rales, or crackles. No accessory muscle use. Heart: Regular rate and rhythm. No extra sounds. Abdomen: Soft, nontender. Bowel sounds positive. No organomegaly. No masses or hernia. No rigidi ty or rebound. Extremities: No clubbing or cyanosis. Intact pulses. Skin: No rash. Neurologic: Alert, awake, oriented x3. No acute focal deficits appreciated. Investigations: Troponins at 0.04 x3. Assessment And Recommendations: Chest pain, possible unstable angina, known coronary artery disease status post bypass. Recommend a Lexiscan nuclear stress test and an echocardiogram. Start on aspiri n and high-dose statin if she is not already on and further recommendations based on the stress test and echo results. Thank you for the consult. /CELESTINE Voice ID: [id number] Report ID: [id number]
[2021-03-27 01:30] VITALS: O2SAT 97
[2021-03-27] MEDS: FENTANYL CITR 100 MCG/2 ML IV PRN ×2 (01:42→10:53)
--- NOTE | 2021-03-27 06:51 | P.PN ---
Subjective Date of Service: 03/27/21 Chief Complaint: chest pain Subjective: Other (reports chest pain is less today.) Physical Examination - Vital Signs Temperature: 97.1 F Blood Pressure: 139/71 Pulse: 63 Respirations: 18 Pulse Ox (%): 96 - Physical Exam General: In no apparent distress HEENT: Atraumatic, Normocephalic Neck: Supple Respiratory: Other (symmetric chest expansion) Cardiovascular: No rubs, No murmurs Gastrointestinal: Soft and benign, No guarding Musculoskeletal: No clubbing Integumentary: No warmth Neurological: Normal speech, Normal tone Urinary: Other (no bladder distention) External genitalia: Deferred Rectal: Deferred Assessment And Plan - Plan # ESRD presumed to be 2/2 Htn/DM on HD qTTS at [facility] HD received yesterday Next issue tomorrow HD tomorrow per TTS sked EDW 69 kg, HD access: L permacath Nephro-karis po daily Renal + DM diet Monitor renal panel # Chest pain, CAD, CHF +Costochondritis component. Pain meds prn. Trop neg, BNP elevated Cont cardioprudent meds # Recent COVID Pneumonia Per primary team # Htn Cont current BP med regimen # Anemia Retacrit qTTS # Renal osteodystrophy Cont Sevelamer # COPD Per primary team # DM2 Per primary team
[2021-03-27] MEDS: INSULIN -REGULAR HUMAN 50 UNIT/0.5 ML ML SQ SCH ×3 (07:30→16:10)
[2021-03-27] MEDS: ENOXAPARIN 60 MG/0.6 ML SQ SCH (08:17)
[2021-03-27] MEDS: METOPROLOL TAR 50 MG TAB PO SCH (08:17)
[2021-03-27] MEDS ORDERED: REGADENOSON 0.4 MG/5 ML SYR IV ONE (08:22)
[2021-03-27] MEDS ORDERED: DICYCLOMINE HCL 20 MG PO PRN (08:25)
[2021-03-27] MEDS ORDERED: THIAMINE HCL 100 MG TABLET PO SCH (09:00)
[2021-03-27] MEDS ORDERED: CLOPIDOGREL 75 MG TABLET PO SCH (09:00)
[2021-03-27] MEDS ORDERED: GABAPENTIN 100 MG CAP PO SCH (09:00)
[2021-03-27] MEDS ORDERED: FUROSEMIDE 20 MG TABLET PO SCH (09:00)
[2021-03-27] MEDS ORDERED: ASPIRIN 81 MG CHEWABLE TABLET PO SCH (09:00)
[2021-03-27] MEDS ORDERED: SERTRALINE HCL 50 MG TAB PO SCH (09:00)
[2021-03-27] MEDS: ISOSORBIDE DINIT 20 MG TAB PO SCH ×2 (09:00→10:00)
[2021-03-27] MEDS ORDERED: MEDIHONEY 44 ML TOPICAL TUBE TOP SCH (09:00)
[2021-03-27] MEDS ORDERED: lisinopriL 20 MG TAB PO SCH (09:00)
--- NOTE | 2021-03-27 10:50 | RAD REPORT ---
EXAM DESCRIPTION: NM - Rest Stress Cardiac Imaging - 03/27/2021 10:26 am CLINICAL HISTORY: CP Chest pain. COMPARISON: Rest Stress Cardiac Imaging dated 11/23/2019 TECHNIQUE: The patient was administered approximately 10mCi of Tc 99m Sestamibi prior to resting SPE CT imaging of the heart. The patient was then administered approximately 30 mCi of Tc 99m Sestamibi f ollowing exercise or pharmacologic stress. Multiplanar SPECT images were reviewed. FINDINGS: No stress induced ischemic defect is seen to suggest stress induced ischemia. There is dim inished density on rest and stress seen involving the LV apex and posterior wall. The end diastolic volume is 206 ml, the end systolic volume is 163 ml, and the ejection fraction is 2 1 %. IMPRESSION: Large area of diminished radiopharmaceutical accumulation along the LV apex and inferior wall has the appearance of prior infarction. LV cavity appears enlarged with reduced ejection fracti on measuring 21%.
[2021-03-27] MEDS: SEVELAMER CARBONATE 800 MG TABLET PO SCH ×2 (10:56→16:13)
[2021-03-27] MEDS: DICYCLOMINE HCL 10 MG CAP PO PRN (10:56)
[2021-03-27] MEDS ORDERED: ONDANSETRON 4 MG/2 ML VIAL IV STA (16:01)
[2021-03-27] MEDS ORDERED: HYDROCODONE/APAP 5/325 MG TAB PO STA (16:02)
--- NOTE | 2021-03-27 16:17 | P.DS ---
Admission Date: 03/25/21 Discharge Date: 03/27/21 Disposition: ROUTINE DISCHARGE Discharge Condition: FAIR Reason for Admission: chest pain Consultations: Nephrology-Dr. Ayala Cardiology-Dr. García. - Problems (1) Chest pain Onset Date: 05/16/16 Status: Resolved (2) CAD (coronary artery disease) Onset Date: 10/03/17 Status: Chronic Qualifiers: Coronary Disease-Associated Artery/Lesion type: bypass graft [place] vs. 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 Initial troponin negative. Chest x-ray showed right pleural effusion and vascular congestion. Patient hospitalized for ACS rule out. Hospital Course: Patient admitted to the medical floor. Troponin trended negative. Patient was seen in consultation by cardiology who recommended nuclear stress test and echocardiogram. The nuclear stress test reported no reversible ischemia. EF reported to be 21%. Patient had no chest pain episode during the hospital stay. She was also complaining of diarrhea which resolved. Patient seen by cardiology and deemed stable for discharge. Patient was bradycardic on metoprolol started during this hospitalization. Metoprolol dose decreased from 50 mg to 25 mg twice daily on discharge. Vital Signs/Physical Exam: Temp Pulse Resp BP Pulse Ox 98.2 F 61 18 136/98 H 95 03/27/21 12:00 03/27/21 12:00 03/27/21 12:00 03/27/21 12:00 03/27/21 12:00 General: Alert, In no apparent distress, Oriented x3 HEENT: Mucous membr. moist/pink Neck: JVD not distended Respiratory: Normal air movement, Diminished (Bilateral bases.) Cardiovascular: Regular rate/rhythm, Normal S1 S2, Edema (Bilateral legs and face.) Gastrointestinal: Soft and benign, Non-distended, No tenderness Musculoskeletal: No tenderness Integumentary: Other (Bilateral venous stasis dermatitis) Neurological: Normal strength at 5/5 x4 extr Laboratory Data at Discharge: WBC 6.20 K/uL (4.3-10.9) 03/26/21 06:30 Hgb 11.2 g/dL (12.0-15.0) L 03/26/21 06:30 Hct 35.3 % (36.0-45.0) L 03/26/21 06:30 Plt Count 186 K/uL (152-406) 03/26/21 06:30 PT 13.6 SECONDS (9.5-12.5) H 03/25/21 07:42 INR 1.18 03/25/21 07:42 Sodium 137 mmol/L (136-145) 03/26/21 06:30 Potassium 4.8 mmol/L (3.5-5.1) 03/26/21 06:30 BUN 41 mg/dL (7-18) H 03/26/21 06:30 Creatinine 3.34 mg/dL (0.55-1.3) H 03/26/21 06:30 Glucose 87 mg/dL (74-106) 03/26/21 06:30 Phosphorus 3.8 mg/dL (2.5-4.9) 03/26/21 06:30 Magnesium 1.8 mg/dL (1.8-2.4) 03/25/21 07:42 Total Bilirubin 0.4 mg/dL (0.2-1.0) 03/25/21 07:42 AST 43 U/L (15-37) H 03/25/21 07:42 ALT 31 U/L (12-78) 03/25/21 07:42 Alkaline Phosphatase 164 U/L (45-117) H 03/25/21 07:42 Troponin I 0.04 ng/mL (0.0-0.045) 03/26/21 06:30 Home Medications: Aspirin 81 mg PO DAILY 06/13/20 Clopidogrel Bisulfate [Plavix*] 75 mg PO DAILY 06/13/20 Furosemide [Lasix*] 40 mg PO BID 06/14/20 Gabapentin [Neurontin*] 100 mg PO BID 06/14/20 Dicyclomine HCl 1 tab PO Q6H PRN 12/06/20 Sevelamer Carbonate [Renvela*] 2 tab PO TIDWM 12/06/20 Sertraline [Zoloft*] 50 mg PO DAILY #30 tab 02/26/21 Thiamine HCl [Vitamin B-1*] 100 mg PO DAILY #30 tablet 02/26/21 Atorvastatin Calcium [Lipitor] 40 mg OP BEDTIME 03/26/21 Isosorbide Dinitrate 1 tab PO DAILY 03/26/21 Lisinopril [Zestril] 20 mg PO DAILY 03/26/21 Medihoney [MediBesstechney Woundcare Gel*] 1 appl TOP DAILY #1 tube 03/27/21 Metoprolol Tartrate 25 mg PO BID #60 tablet 03/27/21 Sertraline [Zoloft] 100 mg PO DAILY #30 tab 03/27/21 New Medications: Medihoney [Medihoney Woundcare Gel*] 1 appl TOP DAILY #1 tube Metoprolol Tartrate 25 mg PO BID #60 tablet Sertraline [Zoloft] 100 mg PO DAILY #30 tab Diet: ADA Activity: Fall precautions Followup: Dena Ayala [ACTIVE - CAN ADMIT] - 1 Week (Call for appointment) Andrzej García MD [ACTIVE - CAN ADMIT] - 1-2 Weeks (Call for appointment.) Unknown,U [Primary Care Provider] - 1-2 Weeks (call for appointment.) Time spent managing pt's care (in minutes): 37
--- NOTE | 2021-03-27 17:19 | PN ---
Date of Progress Note: 03/27/2021 Subjective: Seen by bedside, is doing better. No further chest pain. Review of Systems: No chest pain. Mild shortness of breath on exertion. No dysuria, polyuria, or urgency. No skin nataliya h. All other systems reviewed are negative. Troponins been negative. Physical Examination: Vital Signs: Reviewed. Head and Neck: Pupils are equal, reactive to light. Intact eye movements. No JVD. No cervical. N suman is supple. Thyroid is not enlarged. Lungs: Clear to auscultation bilaterally. No rhonchi, rales, or crackles. No accessory muscle use. Heart: Regular rate and rhythm. No extra sounds. Abdomen: Soft, nontender. Bowel sounds positive. No organomegaly sinus rebound. Extremities: No clubbing, cyanosis. Intact pulses. Skin: No rash was noted. Alert, awake. No acute focal deficits appreciated. Investigations: Cardiac nuclear stress test was negative for active ischemia. The patient is known to have a markedly severe diastolic dysfunction. Recommendations: Chest pain. Cardiac enzymes are negative and stress test was negative for active i schemia. From cardiology standpoint, patient can be released and follow up as an outpatient on [facility] cardiac maintenance care. The patient is known to have coronary artery disease. Please make sure she is on high-dose statin and baby aspirin daily at discharge. Thank you for the consult. /CELESTINE Voice ID: [id number] Report ID: [id number]
[2021-03-27] MEDS ORDERED: ATORVASTATIN 40 MG TAB PO SCH (21:00)
[2021-03-28 00:24] VITALS: BP 139/71; TEMP 97.1
--- NOTE | 2021-03-28 07:40 | TREADPHA ---
DX: CHEST PAIN Date of Study: 03/27/2021 Ht: 5' 7 " Wt: 145 lb 0 oz Consulting Physician: BRITTA MEDICATIONS: LOVENOX, LOPRESSOR, NOVOLIN-R, HEPARIN NITROSTAT HISTORY: 65 YEAR OLD FEMALE WITH COMPLAINTS OF CHEST PAIN. PHYSICIAL EXAMINATION: RESTING B.P.: 131/71 RESTING H.R.: 57 RESTING EKG: SINUS WITH PREMATURE VENTRICULAR COMPLEXES. PROTOCOL: LEXISCAN EXERCISE TIME: 3:30 B.P. AT PEAK STRESS: 128/62 IMPRESSION: LEXISCAN INJECTED. CARDIOLITE INJECTED PER PROTOCOL. SEE NUCLEAR MEDICINE REPORT. PREMATURE VENTRICULAR COMPLEXES NOTED THROUGHOUT. NO VENTRICULAR OR SUPRAVENTRICULAR TACHYCARDIA. COMPLAINTS OF CHEST PAIN 5/10. COMPLAINTS OF SHORTNESS OF BREATH, PATIENT PLACED ON 2 LITERS O2 NASAL CANNULA . NO EKG CHANGES WITH LEXISCAN.
== END 2021-03-27 17:30 | disposition home or self-care (01) | DRG 291 ==
LOC: ER 07:12 → ERHOLD 12:04 → 2ND 03-26 11:10
PROVIDERS: ADMIT Internal Medicine Sleep Medicine; ATTEND Internal Medicine
PROC: 5A1D70Z Performance of Urinary Filtration, Intermittent, Less than 6 Hours Per Day (ICD-10-PCS; principal; 2021-03-26)
DX: I13.2 Hypertensive heart and chronic kidney disease with heart failure and with stage 5 chronic kidney disease, or end stage renal disease (principal); N18.6 End stage renal disease; I50.43 Acute on chronic combined systolic (congestive) and diastolic (congestive) heart failure; I25.810 Atherosclerosis of coronary artery bypass graft(s) without angina pectoris; I87.312 Chronic venous hypertension (idiopathic) with ulcer of left lower extremity; E11.22 Type 2 diabetes mellitus with diabetic chronic kidney disease; E11.40 Type 2 diabetes mellitus with diabetic neuropathy, unspecified; E78.5 Hyperlipidemia, unspecified; D63.8 Anemia in other chronic diseases classified elsewhere; J44.9 Chronic obstructive pulmonary disease, unspecified; N25.0 Renal osteodystrophy; F17.210 Nicotine dependence, cigarettes, uncomplicated; Z88.1 Allergy status to other antibiotic agents; Z88.8 Allergy status to other drugs, medicaments and biological substances; Z88.5 Allergy status to narcotic agent; Z95.5 Presence of coronary angioplasty implant and graft; Z91.09 Other allergy status, other than to drugs and biological substances; Z79.82 Long term (current) use of aspirin; Z79.52 Long term (current) use of systemic steroids; Z79.899 Other long term (current) drug therapy; Z95.1 Presence of aortocoronary bypass graft; Z90.710 Acquired absence of both cervix and uterus; Z79.4 Long term (current) use of insulin; Z86.16 Personal history of COVID-19; Z90.49 Acquired absence of other specified parts of digestive tract; Z89.412 Acquired absence of left great toe; Z99.2 Dependence on renal dialysis; Z20.822 Contact with and (suspected) exposure to COVID-19
CPT/HCPCS: 36415; 71045; 78452; 80048; 80069; 80076; 82947; 83735; 83880; 84484; 85025; 85027; 85610; 90935; 93005; 93017; 94760; 96374; 99285; A9500; J1200; J1644; J1650; J2405; J2785; J3010; U0003

== ENCOUNTER 2021-04-09 17:08 | Inpatient (IN) | payer OTHER ==
--- OUTSIDE RECORDS SUMMARY | 2021-04-09 17:27 | XMS REPORT | Continuity of Care Document ---
:1955 Author Organization [facility] t Address [address] [place] [address] Care Team Providers Name Role Phone THA [...] Date Expiration Date S ource MEDICAID MOLINA [id number] 2011 00:00:00 [facility] [id number] 2010 MEDICAID 00:00:00 Problems Condition Condition Condition [...] 00 Center CAD CAD Disease Active Overview: [facility] (coronary (coronary 20 S/p CABG- L ukes - artery artery 00:00: PRITCHETT-LAD, Medical disease) disease) 00 SVG-PDA,r Matthew ter amus,OM3 on 05/20/17 Atheroscle Atheroscle Disease Active Overview : [facility] rosis of rosis of -[address] [facility] [place] 00:00: Medical artery of artery of 00 [...] l mellitus mellitus 00 Center 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 disorder, disorder, with with long-term long-term current current use of use of insulin insulin Smoker Smoker Disease Active [facility] Medical 00 Center Frequent Frequent Disease Active [facility] PVCs PVCs 05[facility]12 [facility] - 00:[facility]: Medical 00 [place] Chronic Chronic Diagnosis Active [facility] [...] COPD d COPD 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 NITROGLY DRUG Active High Anaphylaxis 2019-03 Uni vers CERIN IN ity of 5 % 00:00: [place] DEXTROSE [facility] TRAZODON DRUG Active Med N/V 2019-03 Univers E INGREDI ity of 00:00: [place] [facility] TRAZODON Allergy Active High N\\T\\V SLSL E 05-12 00:00: 00 Trazodon Drug Active Nausea And [facility] Allergy Vomiting 05-12 [facility] - 00:00: Medical 00 Center Morphine Propensi Active Anaphylaxis 2018-0 C HI [...] in HCl Reaction [facility] Nitrogly Adverse Active vomiting [facility] t cerin Reaction [facility] Clinics Morphine Adverse Active headache, [facility] Sulfate Reaction breathing [facility] - [facility] Clinics Clindamy Adverse Active vomiting [facility] t riley HCl Reaction [facility] Clinics NO KNOWN Drug Active Univers ALLERGIE Class ity of [facility] Family History Family Member Diagnosis Comments Start Date Stop Date Source Natural father COPD [facility] Natural father Cancer [facility] Natural father Hypertension [facility] Natural mother No Known Problem [facility] Natural sister Asthma [facility] Natural sister COPD [facility] Social History Social Habit Start Date Stop Date Quantity Comments Source Sex Assigned At [facility] Cigarettes smoked 2019-12-31 2019-12-[address] [facility] - current (pack per 00:00:00 00:00:00 Medical Center day) - Reported Cigarette 2019-12-31 2019-12-[address] [facility] - pack-years 00:00:00 00:00:00 [facility] Tobacco use and 2019-12-31 2019-12-[address] [facility] - exposure 00:00:00 00:00:00 [facility] Alcohol intake 2019-12-31 2019-12-[address] [facility] - 00:00:00 00:00:00 non-drinker of Medical Ce nter alcohol (finding) History of tobacco 2017-05-[address] [facility] - use 00:00:00 [facility] Smoking Status Start Date Stop Date Source Former smoker 2019-12-31 00:00:00 2019-12-31 00:00:[address] [facility] - [facility] Medications Ordered Filled Start Stop Current Ordering Indication Dosage Frequency Signature Comments Components Source Medication Medication Date Date Medication? Clinician (SIG) Name Name mupirocin 2019-03 Yes QD Apply [facility] (BACTROBAN) 0-03 topically Lay es - 2 % 10:49: daily. Medical ointment 00 [place] collagenase 2019-03 Yes QD Apply [facility] (SANTYL) 0-03 topically [facility] - 250 units/g 10:49: daily. Medi marilin ointment 00 [place] bumetanide 2019-03 Yes 2mg [id number] Take [address] (BUMEX) 2 0-03 [id number] by mouth 3 [facility] - MG tablet [...] 2 % 10:49: daily. Medical ointment 00 [place] collagenase 2019-03 Yes QD Apply [facility] (SANTYL) 0-03 topically [facility] - 250 units/g 10:49: daily. Medi marilin ointment 00 [place] bumetanide 2019-03 Yes 2mg [id number] Take [address] (BUMEX) 2 0-03 [id number] by mouth 3 [facility] - MG tablet [...] - MOUTH Memoria EVERYDAY l AT BEDTIME [facility] Isosorbide Isosorbide Yes Franki TAKE [address] [facility] Mononitrate Mononitrate Jas TABLET BY [facility] - ER ER MOUTH Memoria EVERY DAY l [facility] NIFEdipine NIFEdipine Yes Franki TAKE [address] [facility] ER ER Jas TABLET BY [facility] - MOUTH Memoria EVERY DAY l [facility] ent Clinics BuPROPion BuPROPion Yes Franki TAKE [address] HCl HCl Jas TABLET BY [facility] - MOUTH Memoria EVERY DAY l [facility] Acetaminoph Acetaminoph Yes [...] [facility]ukes - MOUTH Memoria TWICE l DAILY. [facility] RINSE ent MOUTH Clinics AFTER [...] MOUTH ONE Memoria TIME PER l WEEK [facility] Furosemide Furosemide Yes [...] cm Heart rate 2020-01-01 08:41:00 60 /min [facility] Respiratory rate 2020-01-01 08:41:00 18 /min [facility] Oxygen saturation in 2020-01-01 08:41:00 100 /min [facility] Arterial blood by Medical Ce nter Pulse oximetry Systolic blood 2020-01-01 08:32:00 162 mm[Hg] [facility] Diastolic blood 2020-01-01 08:32:00 73 mm[Hg] [facility] Body temperature 2020-01-01 07:41:00 36.56 Deanne [facility] Body weight 2019-12-30 04:28:00 78.2 kg [facility] BMI 2019-12-30 04:28:00 27.00 kg/m2 [facility] Body height 2019-12-25 21:05:00 170.2 cm [facility] Procedures Procedure Date / Time Performed Performing Clinician [facility] e REPORT OF PROCEDURE - 2020-01-05 08:40:02 Provider, Default [facility] ENDOSCOPY SCAN [facility] RHYTHM STRIP - SCAN 2020-01-05 08:31:43 Provider, Default [facility] RHYTHM STRIP - SCAN 2020-01-05 08:31:42 Provider, Default [facility] RHYTHM STRIP - SCAN 2020-01-05 08:31:40 Provider, Default [facility] CARDIAC CATH REPORT - 2020-01-05 08:31:15 Provider, Default [facility] SCAN Scanning [facility] CARDIAC CATH REPORT - 2020-01-05 08:31:13 Provider, Default [facility] POCT-GLUCOSE METER 2020-01-01 06:33:00 [facility] W/[facility]T [facility] & AUTO 2020-01-01 05:37:00 [facility] 2020-01-01 05:37:00 [facility] POCT-GLUCOSE METER 2019-12-31 20:50:00 Pat Mohamud [facility] POCT-GLUCOSE METER 2019-12-31 18:00:00 Cade [facility] POCT-GLUCOSE METER 2019-12-31 11:42:00 Cade, [facility] POCT-GLUCOSE METER 2019-12-31 06:29:00 Cade [facility] CBC W/PLT COUNT & AUTO 2019-12-31 06:05:00 [facility] METABOLIC 2019-12-31 06:05:00 [facility] MAGNESIUM 2019-12-31 06:05:00 Cade [facility] POCT-GLUCOSE METER 2019-12-30 20:13:00 [facility] POCT-GLUCOSE METER 2019-12-30 16:26:00 Cade [facility] SURGICALLY OBTAINED 2019-12-30 13:59:46 Pat Mohamud [facility] - CULTURE + GRAM STAIN Medical Matthew ter ANAEROBIC CULTURE 2019-12-30 13:59:46 [facility] 2019-12-30 13:54:56 [facility] GRAM STAIN Medical Matthew ter ANAEROBIC CULTURE 2019-12-30 13:54:56 Cade [facility] TISSUE EXAM 2019-12-30 13:38:00 [facility] I&D,BONE FOOT 2019-12-30 13:11:00 Tala Santacruz [facility] POCT-GLUCOSE METER 2019-12-30 11:39:00 Pat Mohamud [facility] ECG 12-LEAD 2019-12-30 10:53:36 Unknown, Hl7 Doctor [facility] POCT-GLUCOSE METER 2019-12-30 05:39:00 Pat Mohamud [facility] SARS-COV2/RT-PCR ([facility] & 2019-12-30 05:11:00 Pat Mohamud [facility] - REF LABS) [facility] CBC W/PLT COUNT & AUTO 2019-12-30 05:09:00 [place] [facility] t [facility] DIFFERENTIAL [facility] METABOLIC 2019-12-30 05:09:[address] [place] [facility] POCT-GLUCOSE METER 2019-12-29 21:09:00 [facility] POCT-GLUCOSE METER 2019-12-29 11:10:00 [facility]EM[facility] INPATIENT 2019-12-29 08:12:17 Brandie Khan [facility] POCT-GLUCOSE METER 2019-12-29 06:10:00 [facility] CBC W/PLT COUNT & AUTO 2019-12-29 05:50:00 [place] [facility] DIFFERENTIAL [facility] 2019-12-29 05:50:[address] [place] [facility] POCT-GLUCOSE METER 2019-12-28 20:37:00 [facility] POCT-GLUCOSE METER 2019-12-28 17:38:00 [facility] POCT-GLUCOSE METER 2019-12-28 13:12:00 [facility] POCT-GLUCOSE METER 2019-12-28 05:43:00 [facility]ud [facility] CBC W/PLT COUNT & AUTO 2019-12-28 04:41:00 [place] [facility] DIFFERENTIAL [facility] COMPREHENSIVE METABOLIC 2019-12-28 04:41:00 Lily Echavarria [facility] ABD AO & LOWER EXT 2019-12-28 02:30:00 Sakina Tamayo [facility] ANGIOS/ POSS PPI [facility] POCT-GLUCOSE METER 2019-12-27 20:32:00 Pat Mohamud [facility] MR LOWER EXTREMITY 2019-12-27 16:30:00 Lily Echavarria [facility] - WITHOUT IV CONTRAST LEFT Medical Center POCT-GLUCOSE METER 2019-12-27 14:06:00 [facility] WOUND CULTURE + GRAM 2019-12-27 12:02:00 Annia Delgado [facility] POCT-GLUCOSE METER 2019-12-27 06:44:00 Pat Mohamud [facility] POCT-GLUCOSE METER 2019-12-27 05:49:00 [facility] CBC W/PLT COUNT & AUTO 2019-12-27 05:05:00 Lily Echavarria [facility] METABOLIC 2019-12-27 05:05:[address] Jer[address] [facility] HEMODIALYSIS INPATIENT 2019-12-27 00:31:18 Brandie Khan [facility] POCT-GLUCOSE METER 2019-12-26 20:51:00 Pat Mohamud [facility] TRANSFUSION SERVICE 2019-12-26 18:02:44 Rocco Sepulveda [facility] REPORT - SCAN Scanning [facility] POCT-GLUCOSE METER 2019-12-26 16:42:00 Pat [facility]ud [facility] CTA AAA AND RUNOFF 2019-12-26 15:27:00 Sakina Tamayo [facility] POCT-GLUCOSE METER 2019-12-26 11:59:00 Pat Mohamud [facility] POCT-GLUCOSE METER 2019-12-26 06:09:00 Cade, Salman [facility] CBC W/PLT COUNT & AUTO 2019-12-26 04:36:[address] [facility] [place] [place] 2019-12-26 04:36:00 [place] [facility] PREPARE LEUKO-REDUCED RBC 2019-12-25 23:54:00 Brandie Khan [facility] POCT-GLUCOSE METER 2019-12-25 20:51:00 Pat Mohamud [facility] TRANSFUSION SERVICE 2019-12-25 18:04:44 Rocco Sepulveda [facility] REPORT - SCAN Scanning [facility] POCT-GLUCOSE METER 2019-12-25 17:01:00 Pat Mohamud [facility] POCT-GLUCOSE METER 2019-12-25 11:25:00 [facility] CBC W/PLT COUNT & AUTO 2019-12-25 05:59:[address] [facility] [place] [place] 2019-12-25 05:59:00 [place] [facility] POCT-GLUCOSE METER 2019-12-25 05:58:00 Cade [facility] TRANSFUSE LEUKO-REDUCED 2019-12-24 19:06:17 [facility] RED BLOOD CELLS [facility] POCT-GLUCOSE METER 2019-12-24 16:15:00 Pat Mohamud [facility] ABORH, MANUAL 2019-12-24 08:25:00 Jovita Griffith [facility] POCT-GLUCOSE METER 2019-12-24 06:11:00 Cade [facility] TYPE AND SCREEN, 2019-12-24 06:08:00 Brandie Khan [facility] es - AUTOMATED [facility] CBC W/PLT COUNT & AUTO 2019-12-24 05:51:[address] [facility] [place] [place] 2019-12-24 05:51:00 [place] [facility] POCT-GLUCOSE METER 2019-12-23 21:23:00 Pat Mohamud [facility] POCT-GLUCOSE METER 2019-12-23 16:42:00 Pat Mohamud [facility] MR LOWER EXTREMITY JOINT 2019-12-23 15:34:00 Tala Santacruz [facility] ONLY WITHOUT IV CONTRAST [facility] LEFT MR BRAIN WITHOUT IV 2019-12-23 15:34:00 Lily Echavarria [facility] L uk - CONTRAST [facility] POCT-GLUCOSE METER 2019-12-23 11:16:00 Pat Mohamud [facility] ARTERIAL DOPPLER LEGS 2019-12-23 09:38:00 Tala Santacruz [facility] BILATERAL [facility] AMMONIA 2019-12-23 04:05:00 Mariela Carrasco [facility] CBC W/PLT COUNT & AUTO 2019-12-23 04:00:00 [place] [facility] COMPREHENSIVE METABOLIC 2019-12-23 04:00:[address] [place] [facility] SARS-COV2/RT-PCR ([facility] & 2019-12-23 03:59:00 Pat Mohamud [facility] - REF [facility] POCT-GLUCOSE METER 2019-12-22 20:34:00 [facility] POCT-GLUCOSE METER 2019-12-22 16:43:00 Pat Mohamud [facility] POCT-GLUCOSE METER 2019-12-22 11:31:00 Pat Mohamud [facility] POCT-GLUCOSE METER 2019-12-22 06:30:00 [facility] CBC W/PLT COUNT & AUTO 2019-12-22 05:14:00 [place] [facility] COMPREHENSIVE METABOLIC 2019-12-22 05:14:[address] [place] [facility] POCT-GLUCOSE METER 2019-12-21 20:26:00 Cade, Salman [facility] POCT-GLUCOSE METER 2019-12-21 17:22:00 Cade [facility] POCT-GLUCOSE METER 2019-12-21 12:35:00 Cade [facility] POCT-GLUCOSE METER 2019-12-21 07:20:00 Cade [facility] POCT-GLUCOSE METER 2019-12-21 05:52:00 Cade [facility] C-REACTIVE PROTEIN 2019-12-21 04:39:00 Annia Delgado [facility] CBC W/PLT COUNT & AUTO 2019-12-21 04:39:00 [facility] COMPREHENSIVE METABOLIC 2019-12-21 04:39:00 [facility] US ABDOMEN COMPLETE 2019-12-20 21:17:00 Sakina Chen [facility] POCT-GLUCOSE METER 2019-12-20 20:23:00 Cade [facility] POCT-GLUCOSE METER 2019-12-20 17:31:00 Cade [facility] CT BRAIN WITHOUT IV 2019-12-20 16:04:00 [facility] AMMONIA 2019-12-20 14:41:00 [facility] BLOOD GAS, ARTERIAL 2019-12-20 14:28:00 [facility] XR FOOT 2 VIEWS RIGHT 2019-12-20 11:55:00 Annia Delgado [facility] POCT-GLUCOSE METER 2019-12-20 11:28:00 Cade [facility] POCT-GLUCOSE METER 2019-12-20 06:20:00 Cade [facility] OCCULT BLOOD, STOOL 2019-12-20 06:19:00 Sakina Chen [facility] IRON, TIBC, % SAT. 2019-12-20 05:06:00 AprilSakina [facility] (WITHOUT FERRITIN) [facility] VITAMIN B12 AND FOLATE 2019-12-20 05:06:00 April Sakina Carrillo [facility] RETICULOCYTE COUNT 2019-12-20 05:06:00 [facility] HAPTOGLOBIN 2019-12-20 05:06:00 [facility] TSH/FREE T4 IF INDICATED 2019-12-20 05:06:00 AprilSakinaba l [facility] FERRITIN 2019-12-20 05:06:00 April [place] Carrillo [facility] ANTI-NUCLEAR ANTIBODY 2019-12-20 05:06:00 Sakina Chen C [facility] (ROGER) [facility] KAPPA / LAMBDA LIGHT 2019-12-20 05:06:00 Sakina Chen [facility] PROTEIN ELECTROPHORESIS, 2019-12-20 05:06:00 Sakina Chenba [facility] PERIPHERAL BLOOD SMEAR - 2019-12-20 05:06:00 Sakina Chenba l [facility] - PATHOLOGIST REVIEW [facility] CBC W/PLT COUNT & AUTO 2019-12-20 05:06:00 Marcial Chapa [facility] COMPREHENSIVE METABOLIC 2019-12-20 05:06:00 Marcial Chapa [facility] T4, FREE 2019-12-20 05:06:00 April [place] Carr[facility] ROGER TITER AND PATTERN 2019-12-20 05:06:00 Sakina Chen [facility] PT/APTT 2019-12-20 05:06:00 April [place] Carrillo [facility] FIBRINOGEN 2019-12-20 05:06:00 [facility] D-DIMER 2019-12-20 05:06:00 April [place] Carrillo [facility] POCT-GLUCOSE METER 2019-12-19 20:35:00 [facility]adePat diaz [facility] POCT-GLUCOSE METER 2019-12-19 16:06:00 CadeEvensruel [facility] HEMODIALYSIS INPATIENT 2019-12-19 16:02:09 Sharri Fernando [facility] CBC W/PLT COUNT & AUTO 2019-12-19 05:35:00 Marcial Chapa [facility] BASIC METABOLIC PANEL (7) 2019-12-19 05:35:00 Marcial Chapa [facility] LACTATE DEHYDROGENASE 2019-12-19 05:35:00 Sakina Chen [facility] (LDH) [facility] POCT-GLUCOSE METER 2019-12-19 05:24:00 Cade Pat [facility] POCT-GLUCOSE METER 2019-12-18 21:35:00 Cade Pat [facility] POCT-GLUCOSE METER 2019-12-18 16:05:00 Cade [facility] POCT-GLUCOSE METER 2019-12-18 07:45:00 Cade [facility] POCT-GLUCOSE METER 2019-12-18 06:14:00 Cade [facility] POCT-GLUCOSE METER 2019-12-17 21:44:00 Cade [facility] POCT-GLUCOSE METER 2019-12-17 17:52:00 Cade [facility] POCT-GLUCOSE METER 2019-12-17 12:22:00 Cade [facility] HEMODIALYSIS INPATIENT 2019-12-17 10:33:08 Brandie Khan [facility] POCT-GLUCOSE METER 2019-12-17 06:18:00 Cade [facility] CBC W/PLT COUNT & AUTO 2019-12-17 04:14:00 Marcial Chapa [facility] COMPREHENSIVE METABOLIC 2019-12-17 04:13:00 Marcial Chapa [facility] POCT-GLUCOSE METER 2019-12-16 20:55:00 Pat Mohamud [facility] POCT-GLUCOSE METER 2019-12-16 18:24:00 [facility] B SURFACE 2019-12-16 16:02:00 Aldulacey [facility] ANTIBODY [facility] HEPATITIS B SURFACE 2019-12-16 16:02:00 Aldulacey [facility] ANTIGEN [facility] HEPATITIS C ANTIBODY 2019-12-16 16:02:00 [facility] HEPATITIS B CORE 2019-12-16 16:02:00 Bill [facility] es - ANTIBODY, TOTAL [facility] POCT-GLUCOSE METER 2019-12-16 14:47:00 Pat Mohamud [facility] IR TUNNELED CATHETER 2019-12-16 14:26:00 Sharri Fernando [facility] INSERTION [facility] HEMODIALYSIS INPATIENT 2019-12-16 12:37:39 Bill [facility] POCT-GLUCOSE METER 2019-12-16 11:01:00 Pat Mohamud [facility] XR CHEST 1 VIEW PORTABLE 2019-12-16 05:55:00 Marcial Chapa ra [facility] - / BEDSIDE [facility] POCT-GLUCOSE METER 2019-12-16 05:51:00 Pat Mohamud [facility] CBC W/PLT COUNT & AUTO 2019-12-16 04:08:00 Marcial Chapa [facility] BASIC METABOLIC PANEL (7) 2019-12-16 04:08:00 Marcial Chapa [facility] PROTHROMBIN TIME/INR 2019-12-16 04:08:00 Marcial Chapa [facility] SARS-COV2/RT-PCR ([facility] & 2019-12-16 01:45:00 Cade, Salman Siraj [facility] Plan of Care Planned Activity Planned Date Details Comments Source Future Scheduled 2020-12-[address] [facility] - Test 00:00[facility]00 examination Medical Center (regime/therapy) [code = 791256912] Future Scheduled 2020-12-[address] [facility] - Test 00:00:[address] [facility] (regime/therapy) [code = 273364732] Future Scheduled 2020-12-[address] [facility] - Test 00:00:00 [facility] (procedure) [code = 593348598] Future Scheduled 2020-12-[address] [facility] - Test 00:00:00 [facility] colon (procedure) [code = 339746704] Future Scheduled 2020-11-29 INFLUENZA VACCINE (#1) [facility] Test 00:00:00 [code = INFLUENZA Medical Ce nter VACCINE (#1)] Future Scheduled 2020-11-29 INFLUENZA VACCINE (#1) [facility] Test 00:00:00 [code = INFLUENZA Medical Ce nter VACCINE (#1)] Future Scheduled 2020-03-[address] [facility] - Test 00:00:00 (12+) [code = [facility] DEPRESSION SCREENING (12+)] Future Scheduled 2020-03-31 [...] 00:00:00 (1 of [address] [facility] [id number] [id number]) [code = PNEUMOCOCCAL 65+ YRS (1 of 1 - [id number] PCV13)] Future Scheduled 2020 PNEUMOCOCCAL 65+ YRS [facility] - Test 00:00:00 (1 of [address] - [facility] [id number] [id number]) [code = PNEUMOCOCCAL 65+ YRS (1 of 1 - [id number] PCV13)] Future Scheduled 2017-11-[address] [facility] - Test 00:00:00 measurement Medical Center (procedure) [code = 30486437] Future Scheduled 2017-11-[address] [facility] - Test 00:00:00 measurement Medical Center (procedure) [code = 03741377] Future Scheduled 2005 SHINGLES VACCINES (1 [facility] [...] Test 00:00:00 (procedure) [code = [facility] 64457120] Future Scheduled [address] [facility] - Test 00:00:00 (procedure) [code = Medical Center 61424625] Future Scheduled [address] [facility] - Test 00:00:00 malignant neoplasm of [facility]ica [facility] Center cervix (procedure) [code = 831129170] Future Scheduled [address] [facility] - Test 00:00:00 malignant neoplasm of [facility] Center cervix (procedure) [code = 452760766] Future Scheduled 1974 DTAP/TDAP/TD VACCINES CH I [...] 00:00:00 protein (procedure) Medical Center [code = 773847594] Future Scheduled 1965 DIABETIC EYE EXAM [facility] - Test 00:00:00 [code = DIABETIC EYE Medical Center EXAM] Future Scheduled 1965 Urine screening [facility] - Test 00:00:00 [facility] [code = 218170459] Future Scheduled [address] [facility] Test 00:00:00 [facility] breast (procedure) [code = 277748012] Future Scheduled [address] [facility] Test 00:00:00 [facility] of [facility] breast (procedure) [code = 096960030] Encounters Start End Encounter Admission Attending Care Care Encounter Source Date/Time Date/Time Type Type Clinicians Facility Department ID 2019-12-16 Inpatient UR PAT MOHAMUD [facility] Nephrology [id number] [facility] 00:14:00 2020-03-28 2020-03-29 Emergency Clay Fine [facility] [id number] 15:50:00 20:31:00 Maureen Terrazas [id number] [place] [id number] [place] [id number] 2020-03-28 2020-03-28 Emergency X BABATUNDE AKDEREK ERT [id number] [facility] 15:50:00 15:50:00 [facility] 2019-12-16 2020-01-01 Hospital UR Pat Mohamud [facility] [id number] 00:14[facility]00 10:00:00 Encounter Lisa [facility] 2019-12-30 2019-12-30 Anesthesia Rhiannon Underwood [facility] [id number] [facility] 13:11:00 14:14:00 Event Jamin Kearns [facility] 2019-12-30 2019-12-30 Surgery Neeta [facility] [id number] 12:30:00 13:19:00 [facility] 2019-12-28 2019-12-28 Surgery [place], [facility] [id number] 12:00:00 12:54:00 Sakina Higgins [facility] 2019-12-17 2019-12-17 Travel [facility] [id number] [facility] 00:[facility] 00:[facility]:00 [facility] 2019-12-16 2019-12-16 Orders [place], [facility] [id number] [facility] 00:00:00 00:00:00 Only [facility] [place] 2018-11-17 2018-11-17 [facility] [id number] 11:30:00 11:30:00 [facility] 2018-10-06 2018-10-06 [facility] [id number] 16:14:00 16:14:00 [facility] 2018-09-28 2018-09-28 [facility] [id number] 10:30:00 10:30:00 [facility] 2017-09-22 2017-09-22 Outpatient DEMETRA OLAYINKA [facility] [id number] [facility] 00:00:00 00:00:00 BIJI Results Test Description Test Time Test Comments Results Result Comments Source ANAEROBIC CULTURE 2020-01-04 10:26:00 Test Item Value Reference Range Interpretation Comme nts CULTURE (BEAKER) (test code = 1095) No anaerobes isolated Tissue [id number] 10:21:00 Test Item Value Reference Range Interpretation Comments Case Report (test code Surgical Pathology = 104) Report Case: [id number] Authorizing Provider: Tala Santacruz DPM Collected: 12/30/2019 01:38 PM Ordering Location: [address] Med/Surg Received: 12/31/2019 06:52 AM Pathologist: Jovita Griffith MD Specimens: A) - Soft Tissue, Other, left 5th proximal phalanx B) - Metatarsal, Left, left 5th metatarsal DIAGNOSIS (test code = [id number] 3220) FuZzEwMzNcZnRuYmpcdWMx LJvhskEvSAtmb5VpG3XmAv AwMFxhbnNpXGRlZmxhbmcx ZQOpHQK4hmFkJTHbFXquMS ItCAnoIr7ufZFvnQauZcYi PWOaj6slqsPByggyjWn8l6 lxTZRfXaP0zIHkOXkgW2xu giAyaRAxUEJwMSv5rA51OK GmuW5hiCHmPEvgjaFhPaB1 YRcjSUOcKvY6KZIuqGXlPC TuI7ddJXOmNUnyGYZuTSgr wIQuICP3uFdiq3B3vAZtoI NbhYwaQeXoRkQjBHHHk0Tj KJx1wMbcW4ShZWPuHuA3cG QgUGFyYWdyYXBoIEZvbnQ7 aD32TVfzhgJ0aAWlm9Qcv7 0sb665rY4hvPVtOIW0WZVm IEMjkLMnRYWpPVY3BYWpvV NkL4z8RgBpmOFqQ9U9JwMz zPAjI1A9LnLqcVXzX2O5Hn OthZBcEEAdhLYxFb5icDSi nZNbwd0lvr58HKG3u8DoaI vvFUQ3IVA8UwXxZp6nlPDs YTJuXF0qKwPerWFzEKMacw 19kOfhFCugtkVwvS4zUvKg WPCbaXKpDOHpKJ9kfXCoVZ CzsR3osltlHHUtYjGtuawq PRDdfNmuepPtKa2bsIjqBB D5MCaxI4hbnC8pLyL3QJbt N0ofnB0mSPq9LLuanFZ1YN OusD5hFX1srecmj7hlPsHd FR6qxafdv5cyBeMmBH7djo l1x5jkHtVtJK9shfvft8cg NzIwXGhlYWRlcnkwXGZvb3 PdyilzNRWpy5WwQ5ZlnVhm B34qmNhdC13vCBDdnTditN 8qsJumzQ3wLbEvEcUqXKlu bFxwbGFpblxmMVxmczIwXG aqywztFFEkKHwvZ9amPyEd IJEchCihFXgkj6IgASCkDS XhRoRmRV0eDi3SPJgdXLNI XZLDWICSOVFTNe3AIO1SYK EERNHUNS4PBADBRI4DU6z6 NAUzsfRfAFLqKDFMNK6mL8 sPYGMPOiKSXueVUJ7YUJDP UlRJTEFHRSBXSVRIIFNVUl UMMC5JPW9VWCYCCYTKQMDY RCBDSFJPTklDIElORkxBTU 1BVElPTlxwYXJccGFyIEIu IEJPTkUsIExFRlQgRklGVE ggTUVUQVRBUlNBTCwgQklP UFNZOlxwYXIgICAgLSBBQ1 SDPOCYY3AYB74TOEkJQAmK IFxwYXIgICAgLSBTRVBBUk TYJOPEOzXMQKTPKDNrM4Vn XscNAc3UI98SDHMRTERKYD IGD4NFCXEMJDKLCVNWO1SY N2XmAL9HN3MPN7lUKRFMDU BHUkFOVUxBVElPTiBUSVNT WMDbNm6IUVXXXB6JVZPmrt 80FGZ0AkOdc8Y1PIJ4OZBq HMHis9mcSWKnrIWlVwOfTn NcZnRuYmpcdWMxXGRlZmYw y3tjy894bJKqm8xhZTHbHp A7tEDwGWBxhLWbS242NPJm CIxdo0rim0KxCLMwaFKzw1 Z7XBLDxchtvHo7eFuhA41i b1B3KjhqV7frDCLxEYGlA3 ZlGA3uCXBnKsi1CAA0NUG9 UQNpXPFsP6QxDR0lCFCrvO VsVIe8q4ysiFcxEQVfEYD9 w0rmCKnpfoUsNO0dit0qwO y9u2jtknKvEKPkQMJpkYYW PHOsS1KbtObzUb4hcPk8nY dlPcqxXDH6Ath5JM5daf64 sie4qOryGIGuzhdvUwL4NH zdVHYdwlqjCJb8GWavOCFi xUO1ZCKnjIIsX7YcDGNuJT 8qxyj4MVC3XEulDBVxBoM2 NDBcaGVhZGVyeTcyMFxmb2 78AAG3FtRsQG1xJ3Vwv4S7 uI9myQMaTTQexBRnPzEfZZ Kuub3xpIRyUBzpo7RgBGL7 lwF8gFGjlKXqOUVwPtQ7MC gzVY7dxq11ZHYsEYK1sl2k bGNccGdicmRyaGVhZFxwZ2 KiQLMnp540QPQwB1ToRPJc w7S6hfDpYtMeEHXcsXS3iv U3GJPdNF0ljnhqg5afNBns WNybXNMlkrS4vsE3ECZjqI MrY4HpkC0wTTKkUF7vailr e7dnVFY0IUaxBXOhZXH8Fq ZcYTOkw1Wkuzw7UiIyp8Cj iYFhFAcoR30yo425MNJugy EaY3onyCXynjucwJHkzwwn KHbrwqE8SKLmUUkmuiatVO HxAUupZ4jgPkHmDFPjwScs BKxkr9JaEWRfEOYhQjYslH JdBGWwYnq1JDEafVCaBRTy OaRqE6aegntxVwLABHPmx2 poS5eyuKDCyBOgS9FqMQqq riRxCVdnAMulDMZ6RUD7Mu 46FcR4YBOolk22 CPT Code(s) (test code m4xusHVqNAFgwCIfTdBoEF = 3357) GmCZZdb8gbDMQscEOrWaGo MzNcZnRuYmpcdWMxXGRlZm Nhe7xmh281oLUgc4bfRVCc CtO1pMQxNJVdfIWoU705b5 mkb8ncepVvmEU1HQInUNI2 JRlvvtZuqtZ7OImwtZZiVv R0EDhqiqDgIFjngdYrxfXx Xvz5ZYKpR779HRV7oFaop7 daZQG7UTAtLPHkJgJxTa9q vZUnN446NSUbTLWBGTHugU m8DYRyooDsfjJqdUYDl841 R117j0mnFKBbmiIvpMzZhc put6fvF117JDTonJIijhDi CaUdMVKxhAHpkNF4STWvKQ 5woqcrTsIvQX5llnvfOaUf ZV1mtci1NwIjOE6xthcnJb MoMGzmJDStianoTPLng9Zo hetuEQ5nG0Uyv8Z0nM7jaU EsAMBtiWHrWfDbQGDnya6y rPHrFJkpy8AjORE5jmK1rX LnyCDeEJZuDW57Ussli5Zj PrasBVW0TNZuglOqj2Dnt9 rxHzSbsbRsK5qkB0PxSZCa NJJlFGMeIsQhshGzu7Sdb3 NgiITmnGr3e8jzQMFoDODg lCubx8tsACN5KEIrI3Q6fO Kvo6ihCChlEUWbaCU8uecf GAxjSLMtoqP4hpaaRVazCD OgsDK4krlhNSgtATJoTlD9 yvdqGLqeRCDiZRV9IAzan3 77FSL4TGxuXooxMHenPQHw bmNvbnRccGduZGVjXHBsYW luXHBsYWluXGYwXGZzMjRc hQhpcEmdrF0qDqPnKzOsGO iyJQ2zGSXhB4wynMRcYDXn HEJhI4meQxUejP2wfHtrWQ ghzwXeRD6CC5Y1LNApjwG8 XDWfLiL1XmoaKVZsHLhyVC EgeDJccGFyfQ== CLINICAL HISTORY (test f4xdkMLbZRHfpXOzMbGyIY code = 3356) KhJJUwk3viMKZdhMFkHnHw MzNcZnRuYmpcdWMxXGRlZm Igs9bxt632fOWbp7fwXFDs SxG3zNMiHCEvxDXeZ909d3 gqe3ywxhLnyOR2PVTsEKE3 EOvujzJrulF1ABadnKVnWc H6AXyqayOqDKauqfQycgNw Kwj6IPLiS786CEY2iWzeh6 piOAT9GVIpKLMcLqEpWg4x xTRkW440LTPqNTXHSXAbbA g2MAJhhkVnsrHvsZNYq974 N821k1ghXZZkwpKqeQlKhh xqs2veL829OZOqoTJazbWp TiRdXIXakIHxfFL8CAFmGA 9opvdpTiJpKW0egbywXzRa WO6ydkf0YhIcDG6ijqgqWi LxMNjyVNYcuiswUKEuv6Qq qbrsIT8fR6Qim1W1wJ8rwK ZsGLQofQIcAkSzMIChmc2h bYTbGXmnk6JoWSU5ctB2wL XrvOSvULVkAJ22Mgsej4Go YoclTPY3BRVnrnWht0Scq2 xjQoXibnVpR8jbZ2PxFCXc ALOvYBHiEcJzyzFro9Gcb7 XttSSgbWo0l1xgYLJzTCAa uCvmf0vfIVY1JAWmV6U3mW Aff2kfQOakBFFolKO6wtcz WJklXDNpopL7uhfaBJjyGZ KkwZF1cbmdYFhyNKNsYiV2 pqkfXBiiYCJaUUK9MFwku2 22MVU5YUmnBnfcDLjnOUGy bmNvbnRccGduZGVjXHBsYW luXHBsYWluXGYwXGZzMjRc fRgycJgsvN9yYqBvKmMcXG ynWT4hDTWpY8jhyWMhHRAp WNEoX5mpAjFhgG7nnXozQO zvejDlQZ9rwQJpqSvvsPs8 mWEui2MvfQGneHH7sAysbA R9XYXtcrOnlFqkgKwhJUVd y9TrIppkKAPdcxVqQZQqPM RccGFyfQ== SPECIMEN SOURCE (test x0jnlOQfZAKblWMbYxBzFB code = 3377) UmOSSfd7quMUDiiCWnLaHd MzNcZnRuYmpcdWMxXGRlZm Nnd6fmx083zUVln8zoFTAg JjZ7mIDgMSTbdVMiD020r9 buv9klifGgvQS3YTTrSGP2 PFrajrNpiyS2TYasjOBfZq C7NAuxsmVwPKltloGozuSw Bbe3UOBlV593SSY1aHblt4 wbJEF8SCXqUIOdNoLhUa6z zOTjF900TULzFDPVOJSreF d6ROKopvUepdFfaDZDj709 Q079b6raKXYslhHovVrYvk brx2ykI001SHHjsHBxkqDq VmYlKOXxzTRocWX5BRLgXB 2wfiaaPnXbKB8cyyoeIgUz DZ0hhpl9YkTbKH6ouelqEe JcIUuyIXSosdkpWUPpf2Fb iihdFK7wG4Osn1E5aQ3bqW PgJUVubHKzViHeJWNzsz1x vLGpJBbvn9CjMGX8opQ1tF UqsROvZSZdKE36Kiaci2Ab PrmpHLR3XXYtojBrn9Mcu1 fnQmUiciWhQ4xbG3TlDXLo ZPIoYPMrBgQovuWqf5Kyi6 HemGFwrBb2y5rzKYGyLSUo qGoyb4mtOGR0WFSyQ6V6mS Dbt0smRKutNGIfrHH7dfaj COucWVNomnX2sqshLLroLH GscRT3kxzrKCmiOVJtZvK8 acjeFGmwVFTiDOC6QUmsm0 49TNX5CEyrAeovRIubUGFk bmNvbnRccGduZGVjXHBsYW luXHBsYWluXGYwXGZzMjRc jVhezMppjG3sAoZvVsSgVX jnZB8tWQIuY8aklIKkJKFm XJOzH5ivTpMyvM8hbIykQG xmczIwIEEuIExlZnQgNXRo YGHom4arzTKwVHYpPHavpj pgRFAyRIwhSwGwFQFzIP6z jVR4SCMdLReqXDHrjo3= GROSS DESCRIPTION (test q5razALvRHXekPQdPnQaPQ code = 3366) CfLDSzy4oaVWEhyDZlYsQw MzNcZnRuYmpcdWMxXGRlZm Pjq4nry944hOCzk5ncYHRn OrC7uTTaRYJjuOVcJ590SQ RmMGsmk3fxe4ZvLRNogVVv s8N6XITIcoykzBo0gAgsL3 7ct4P4FwdwF0bmOEPrOOBr V6EkXP6nSBDzLyr2JVA3MB N4QURrHDUkT6HzYU3tNEAv mIRuOZp5r4tfgDqeCZNbBL H8p3vhFPcqsyDeIA8hos0g wHv1b7hgpgXuTRDjNJVioB JMAGRjA5CrtFguZt8syZg7 gUdtIntqBQS0Jdx5CZ6daq 22bqa1iFnvENBgcqhrPrI4 WCzvOUBeeggxTCl4QMmdRD JnbDcyMFxtYXJncjcyMFxt YXJndDcyMFxtYXJnYjcyMF esGKJaJKT5QUqtu816ESJ9 ABjzk4uhu0ielCFqCfo0GU LsHsEbHkakPZbsk5Kul9ee XJTpxa6kTHY7jNRxiUwnx2 C6aNAnKNPaxPXmhaPkDBCq KhM6BQorQV0kva11MNMdPE I9we3znQRqoNrhmlLlwHTm HJirH5HbTMKsj291FDOgE3 JeDRSes1B1ioUdXiHgADFt bHB5ysC6HKBoZOw9hLLeda F5ztKvgGTzB8fujN08RxSb sVAyV7NepL82FiWpwGTqC7 ZxwR15LrTckACnV9YpmC18 VsWiaRQfQASbgCBpLz3cbJ KddKPjh3OqnTRjURugU43j n732UNHszjCzC4ajfYCnim hpcDNjuuujMJfikcQ1XONn XHBsYWluXGYwXGZzMjBcbG FuZzEwMzNcaGljaFxmMFxk IsZhPUPkKEthS8cbJkBiRo DuCSHEkZJsnU6htnWANTjx SWOqG4FopdWdSMbtHDObnF M0tUQgGEhhQcGtZQOgu8l6 wFE6oLRiqCA2iWZhbOwpUG 4iwMPvHX1oET4cEYkgMJgb diFmn3SyRJ34eDRzaqRwfd QgZGVzaWduYXRlZCBhcyAi l47qtWA2rJDpbDSwVZ18oY AjMzwoP35xw6exaUFky3Ih w8koyCOhvVDdwK65JUIhwi TlJgJkF72txuXeWC7mEYN7 cmluZyAwLjcgeCAwLjMgeC TeXcRyS49vBCZrDLNnaSDb rD7vmnKwmqMomAHeyZK9BX ToDZ07lNXayYvmtX37epHA XPTezyHixX08dvVoOFPsoK Fec6a2yTuesy6ejADoIFIr xpDZjOCbgB8mnxJQSOdpBP KmN0TclfJfIDsnZYNjtSO6 kUAdZUsjSrYqOFUek6x7dM C5uRPhhXD6mWUlpCwfSJ6u xOWrUO2tFB7yXBddICqspl Cul6UpVP02aVNqcbGjupAt ZGVzaWduYXRlZCBhcyAibW P6CVCkkjBkrEGeAPT0Afmw U73wu8wjqEUrd5TdOr42fh JuUCXaOaEsy56zuBrxn1Or ZLBjAZWub03iUVInTKmyEJ 15suWlFPDroFEyxsmqEh0q KKuvIQ41UPzqJB46DTDhIC sjIVRoL5WkQ9H7WV0upAzc IHNwZWNpbWVuIGlzIGVudG jrVOg2HUcspRJgaarhJMsd czIwXGxhbmcxMDMzXGhpY2 bnLoIeMCCazGgkNXayj4Qo VTUmPHMnSsIlSxAuZS6iRT frkK1bSXCvGRvtc73tgOWu n19bKJUkYRrbTBLxYIIwLk BcbGFuZzEwMzNcaGljaFxm UKgpFjQiKMGyNTruZ9xkWf BcZnMyMCAgTUcvZXdccGFy fQ== MICROSCOPIC DESCRIPTION j9useSEqFYZdyUXtYyCjTC (test code = 3371) OwGYUsi0omSEStbKIcXrAq MzNcZnRuYmpcdWMxXGRlZm Wai9aus302vAZzp8jlIFKl JtE1lGUmIXDylSDnK058o5 rlf4mzlfRpkAR8FNLeWKF1 OKwlmjNawnL5ZTyhrVRlQx V5KSmahlXoCZvtgsUsojGn Jfa7AOJkT802VNM0yZyla5 ptGOM5BSMgQGOsVaNgPy9k mLBeF948VRGkUUKJLSMeaH v8QPCwrhGefdJsmFAEz666 M851s1uaWSVewbIjbTbAql aoc8kvS189GKSpqQWtmbFk KuTgBRBlxFMsaBF8ISPaAM 4yduvwRzMqKY4bdrpoPsIs SQ4npuq5NvRwBC1jlgqkJc UgYJpvNAJglvliBUCza3Qi chuqMW5fZ8Kdf3H1kP9ifB LoZWMclJPiWkMeUYRdjj6g tJWbMClpy8KmYGL7gmR6lE DmsRExMPMwFD09Xjiof7Bl MsscPSJ0CEUmceSsv8Iqv4 vhVjOvqmYmU0srQ9NfDEBo NIGbYKEjYhAlnvJjj6Zwk3 ZbbNDtxBi1y9nuFQHfAGWy gHarx0muINI8RQLqK3I5kH Xqt5vkVWwoRIVmnRD1nyyz LJlaEBImncM8ljzeQJhsPU EpjNN9jvvpVLuaUBWzTnW8 khmrAWcbQYDnSJD7PMoaw5 97KCP7LWcjRiagRBhtFGRw bmNvbnRccGduZGVjXHBsYW luXHBsYWluXGYwXGZzMjRc pQrcyNuowH8iWvQiPaBdWN yhCZ2lIDWjO1uqvWKiLCXg TTDdN7awGuBftO6zxXkhLZ mhteCkPCLlRj6eYYJjCi5c bWVkLlxwYXJ9 Gross assessment was [facility] performed at (test code [facility], Department = 2777) of Pathology, [address] [place] [id number], Technical component was [employer] [facility] performed at (test code [facility], = 2778) Department of Pathology, [address] [place] [id number], Professional component [facility] was performed at ([facility], Department code = 2779) of Pathology, [address] [place] [address], [facility] [id number] 10:21:00 Test Item Value Reference Range Interpretation Comments Case Report (test code Surgical Pathology = 104) Report Case: [id number] Authorizing Provider: Tala Santacruz DPM Collected: 12/30/2019 01:38 PM Ordering Location: [address] Med/Surg Received: 12/31/2019 06:52 AM Pathologist: Jovita Griffith MD Specimens: A) - Soft Tissue, Other, left 5th proximal phalanx B) - Metatarsal, Left, left 5th metatarsal DIAGNOSIS (test code = [id number] 3220) FuZzEwMzNcZnRuYmpcdWMx TQdhamAiMYjek2DnT1XaMd AwMFxhbnNpXGRlZmxhbmcx PYZlBXJ5ewYjDETlCJpvZN LlCAyhJx3qeKMjwAveJmMy ZWVrn6dlbzSDslfyiYb8f4 spDJSfVlJ1zRZeNJgfT9hg wvSirSZePKJaZQv3rM78WI GjzD2ltOAfTEwvsrQjRvW9 PSdlJENfHbQ2XFRlvRItIS ZyU7qiUKYgOInlTRPlLQry uPKgPNW6vAtye0Q8lIZeyV QrdAumLtWsNzGkUZLIq5Pv XOu3gQdaM5SdSNIuEtL8nC QgUGFyYWdyYXBoIEZvbnQ7 fX26UXallbY8tNJaq1Xsi2 2rq725rZ9edZTeXVP1PJVp MBWibDPnIGJrGPB2ACDaxE BbK1t8DpMueCNdB4S7SbYu oJQmB5B3OwHmmHIkZ6P7Jp JrsJGcKIHliLXjPm7hjZUo pHEfwn6qly60ETH4f6EacA osZQT1YGQ8YiKfBl3eiPFu UGHkKV6hFbSzoCDcTWXxam 41yCguRJwdrbTfwC8oZoMx ZTPrlQPoQSSgCZ4ajCJcRP AqwY5fgxocGPAqIvFvnnov QGSewJafcyRzJo5udRfvNU I7XNpvD4gppO0xYrA7CIhf Q6pdwE6wXFy7VNyrtDI7OY RmiJ2lQB7abrmjr9jlWpXv GG6ojuygg1yfSbKnXA3dvz z1y5mrFnCmQL1ybowvo4cy NzIwXGhlYWRlcnkwXGZvb3 LiuxebIXInw0DsL9QgiPfl N62mtAsfN64iYIMjzDyfgN 9smWqbvJ7kTrUdNbIcNHnp bFxwbGFpblxmMVxmczIwXG izidtlWWMqPRkeF8mrTdUf ONRrnAqrZYnjy7StAWEjHE XiAkVnYM7cHr4UNOhpEZCF KVQORHJCCKMCOs4ZHI7OFR KPYNWSGB4XNLUKOY8BE9v5 UXDgltQwIYJyJJYKRR7bU7 rAYVJUHfBRFvdMGS1FLDDG UlRJTEFHRSBXSVRIIFNVUl BZVS6WRG3KXDKBIDMQSVLU RCBDSFJPTklDIElORkxBTU 1BVElPTlxwYXJccGFyIEIu IEJPTkUsIExFRlQgRklGVE ggTUVUQVRBUlNBTCwgQklP UFNZOlxwYXIgICAgLSBBQ1 MIPGNYJ5AGZ24FECoFKSjM IFxwYXIgICAgLSBTRVBBUk EXKIIYEzHSZOUCVUGqK1Kb CpmRXl5HW69KPWPAAKQUUE ECB6KLOJEJWUIVBCMRH5HA B7MnYH6EC4EZI0mJQXAQLP BHUkFOVUxBVElPTiBUSVNT IMHwMz8WANQPGV3DTEHicj 48XNK4UcGac3H9QFE1QDOy OVRko6bzCRGkoUEqZnLxUb NcZnRuYmpcdWMxXGRlZmYw q7muu249cNXhh5rpIMQsQw E4jNWmOLGqnBFrV563CAMx ZUkjm4lfe7YpSWLjcJDms0 X7RPBZgfxuxOr8kRrcR89h i5D3XorzV5uyCEMaOGKkG5 BpQR2pUHMjCqo2GGP8EGN9 LQPjTHHwY3SlSU7xDLJxlD DaCEl3n2sxsTvzBFJxIFI9 h4laBUkjffYbYH0dwe2nfX k4i5kpbuSvBQTfUTDqcEPQ WWKaQ3LpsZslPi2ilWr2wX bnCztzUHZ0Exl1UO0ycr70 kcx6gGwwVTCozqzqKrD9UO rvIGSxpeskISq9SYspHUNo uMM1UUVwbIQhZ0VzCLWiOW 8dlbs0IFB2NGakDOWxRnM2 NDBcaGVhZGVyeTcyMFxmb2 66TDZ5SjAzHI5iA6Psx0Q0 oA4bxDDjKKLwiWRqPaEeTZ Txzn3idFTsFHsqx9XgAMH5 ilS4dBLmtSOiEYYvPuQ2HE ejBH5but27TWFtOGK4cx3t bGNccGdicmRyaGVhZFxwZ2 GbZKSft292DQAmR9PmTPMz x1V9ngYpVhAbBCXzpLM9pz P0BGPvQR7xaazft3upRQfs NOvoTHDanvE7vhV1AZQcbK ZvK9KuxZ1kKKOjYE5pkoqq a5gcRBZ2XJifFIIxSVZ2Wq FbJNBhg0Hwlmi6LjGsb0Sd kFUsAGdxR98xs306IFIloo LnI8asqBWuqwiomPSmqckb HHkxwiD7AYQjSHhfouiaSE SsVIxuX7clQaDtUZAuoNin MBavn2DmTUVrYEUjOiQfxY AzRYRiEyy0RJWhcFZiPOAu HxZyE7fjsbomKlVNPSUcm0 nfM9hmwBQZwEQsP0PxCXfp ujLvLYsoMQovMGC2MWW2Kg 17FfI9CTKxmc80 CPT Code(s) (test code w4xybWSqUXGhaUEdTcZyVK = 3357) UtOZSwg1sgYYIwpIFeYgJr MzNcZnRuYmpcdWMxXGRlZm Moo7mjn845uNBbw1xbSNOh MrZ7xAZuUPKtbUYzR526p8 dkq2ywsoEgbQI0UJRjKNH5 ENrtmoLdjqE3YKaliJJzQu C4MNzzneJiSEqxtsZwvaBd Cvt1HOHwE499BWC9fQvvo6 ffORX4FUKxVTUrVhNrMo6x xUUuH947GSJoPFEDNPBeqL z2OHOkpwGsjuAjtGVJd148 I340t6acISYpjxEidJgShe meo6neA270IYOzjDKmxbOx XjKyYGIxaWZhwTM1TQCwLZ 8twknsSsBuNZ9ugqfvBrTb OY7xdeu9YnLzGS5qxzdwYl HvWNdnJDMibjlpEBTeo3Bq usdrEJ2sU8Dau3O8zC8nwA BaZNGhcDTzYqKuCGQrbm9c qEJcYFhbk1YeGRX7tuC1mB OfoNKbEZUzDA17Ednky0Bg HhppLAV7SHRaksQdi4Trx7 suDiQisgJkY6mwX6TtEOCy NDZyRVYwAkCnfaFik7Bxy6 VzwETvcZj8d7qzSFHcGOZn dOvkh9krYSI0AMNwC0C6zT Ndd7paGIpsBHHgsZL9pgao YGwdFXRluqR1lnevMJzoLO IhnBX2tqfvNWgzHQQlGyO5 sfxgACctFEJpLKP7EJtsh2 14TWO4IWizFaokRNbzSYOu bmNvbnRccGduZGVjXHBsYW luXHBsYWluXGYwXGZzMjRc tYexaNyppD9oVfYlWkKrYN zaSN0cOBGyF3bwcFEmEROw EJKfH2yrJbWltW9fxReaFO vbfgBbKW3HV4E6NQDoqnQ7 BMRmNrQ3WuyoTDGwFAkeTJ EgeDJccGFyfQ== CLINICAL HISTORY (test t7jjxTOdNHUlyRNaJqJdRQ code = 3356) JcDCPef1brWHVdeUOsDaJb MzNcZnRuYmpcdWMxXGRlZm Psz3fjg306mBTap0bqBSWo CrJ8kEUlNXSimMNsN793m4 bol0romoSgpRW9BSKhNMR8 YPrxxhEwtaG6SIltiUSrOs V3IJvqbmRkGIbbmrBifeVx Osg9NWAwD547FWI1rOxfc9 vuAZY9KBKeVBYlYrSnCv3l mTOdX027XMJfOYSNDETivW d0SEIzkdWyobUfwPYIx010 B971l1hrACVyktNhzGgMig nyu1toF533PLLccHZrpkNv PvDmKBEidDPerCS8XPGzWL 5zavhwDaQvZY6dkxohNsMy CM0ndlh7SvUdEL8zmvbjPf YcSSitRYKcvaeeQJAig8Wf qoedRE3nM2Jpi9G5aP8yqR FiNXDmeJMbJqTiHCYeei1w sYPdLHfic8OkRLE3huJ7bZ UcxMRjZFHsAP67Ymvqn6Ay XntkTVE4VGYfqqDmx8Guq0 jiIuUryjHsQ4umK2UwURRm IWSqBPFbHlPwqaOms7Sgc3 MmaYTyhUx5q1cqZGTtGEUt sEiha8bvZXD0JSXpO4S7jT Dpe0okZOojBYZpeIJ7qugb RBsgJMTnzmO9frnxRSufDK MgzVU7nbkgSEeyCAHtSoQ3 rlbzBWeqZQGbHKA3MIdro7 16JHO7PIvjOffiIYdkEDYy bmNvbnRccGduZGVjXHBsYW luXHBsYWluXGYwXGZzMjRc pHltqRjjvZ0hIaTcRzFxOG emPB2bFREtH7aiuOAzWSOw CRNwA9dhHbHfvR3bsPomPH daogSuUR2fhYVcuHtwoWg0 cNGed6ZvzVSetLZ4rOautI U5BWRxxtMmoIkmaPkkTYFy o4NeGmrhXUDewpQqULCwKJ RccGFyfQ== SPECIMEN SOURCE (test h9bqrUAuQUPqyCAdMkBqQO code = 3377) GbGFXdg9dtRLQdtNDnMxCk MzNcZnRuYmpcdWMxXGRlZm Olc7cod267iCOmx6wvQXIc VgA8uJUeEYFtfOIuD166l6 pvk6yprmDyvNO0ZYWkJAW0 NGkngbOfnaM3USxktKNeLc A1MNgdhiWwPDubaiLyibBy Rzd9PJYcX182HGM6hWwhf3 jdHGZ4SEKtTNJxIwQyUm2q zCTzG299OAHqVLTSSSBacA m4JDVouqWcxyEhnFMSj515 T443m0noXGAqiuHtrWnFgf bxb2egM266TTFkxVRvxgUl TqFjEVWhdKHbiUQ9TPEeRW 1htubhSmUnKF9wwddaFzNd BW1rfvt5LkKeWE8xgvhcUm KaGHkrGWAwtbjtNVUbv1Qs lwqgCN4wP6Bik3Q7cK1krD JqJXFdbJUuDnRlYRSddo8d fZTrHRmlk2JcFOC3pcC8qW IpfDMlYNVmJN54Pyiyk5No UolcEFI5NPCtxpPgn2Xcs7 kyQpGndaEiZ2kaO9RdDKNr KVLhGVEfMtHtnmDzz7Csi4 GueIRhgMt1w8rsIUBsZWOj qBlyr8nmGMW3AIUzX5Q3eJ Sec3xlSIhcTYOanWL9sdbx NGzrXICaghY4kazpXYjnUH QhiMN0atboKPpvFRHaGaJ4 zstcONjhBCUvKGM8PIcyn7 54WEQ8ZFtmXtqzGGurYMUh bmNvbnRccGduZGVjXHBsYW luXHBsYWluXGYwXGZzMjRc xGdcmYgnfG9zBrVuHuTdRR fyMM5zYRNlN7uudXOkNXIe YDUhW8bkOuMtmQ5cmXtzAG xmczIwIEEuIExlZnQgNXRo WAPht2cpmOZwJVDmPQddqx xgIQEeWTbgDrRwXPEkRX1b hFX8LNTxJYvrKMIxvu6= GROSS DESCRIPTION (test d9anpZKzJDYttNUwQfIeAC code = 3366) DpKWVwt2ldQMQejHNqFcDi MzNcZnRuYmpcdWMxXGRlZm Mmh4esa205vVIae2ffITAf BuZ1gGGuROZdwMDwW505SL NgLKani3otj8XuKUQiiULg l3G1UEPThwzagGs6uQveP6 7th0S5ZqknB4vgSCJvOMPr P0RiXO1zQWVaSvg6IOY1JA N3NBNdQRStC9UeUM4rVUOr wHPuQUf2v6nidRxxHSJwJP R8i9xsODwebfVnFH5ivc9k bRa0n7phfhBzQCEeKURpeB MWXGXzG2WpcApfWz6dcQl7 hKaaDmotDYF0Ikt6PQ0ybj 35oxc0wLhrSDZbynxyXdV5 ULzvXIDvnzhgFNp1TYaxDO JnbDcyMFxtYXJncjcyMFxt YXJndDcyMFxtYXJnYjcyMF ogSQQkUYN9BRvaq576HJJ1 AIpli9yon3uexWCpCfq8VT IrQvUpKowiGZwev6Hzs6bi NEKvrk5oLVM2eYDjlAfox6 N6jCSfDONjyNUurpIiMKBg XgM5ZGfgKR9mxy63YPGlZW I6zv8guBLvjIudtePcaYIp QNyrF0DjFEFmz885BDEsG1 ChBNQxo1D8ipDrTwIfRCBm oYI5cpW5JSAeRMu9eFVkhh N5nuGveTNgY5mbcQ03VoFc kBTbQ7OovR62UmQfhJQmW3 JxhX61ApTmkRWmI2RlrG26 RkJsqTAmIXClxPAjYe0gwG KosHSto0FvaCPdVCmiK42y b024LXQyjuKzM8flmWQwdh qyoKVbcvhuXSjawdN9SRDm XHBsYWluXGYwXGZzMjBcbG FuZzEwMzNcaGljaFxmMFxk BsVxJXYjFEgkF8fkVgSbOh YvQLVPwYNimM5zvfWUZUvu CPSdB3BvdaKaMJjlJWTgrI Y2nPPyPZmkHqExQNOdl3n1 kCI0ySYfsTN0ePZvdBlxKR 1hoGTqWN4xXN7cYEdzWKnp hlPhq0InGA07nNAuwqVgce QgZGVzaWduYXRlZCBhcyAi p92lsTV0qNQqhYBoZV44iW NiZnvyB84mn2qhpUYgh3Lk d2vamPFyzJUqnH81SSRgot ZdVrFaK13hrtYvGW3uPNV1 cmluZyAwLjcgeCAwLjMgeC QhSlEvN67pQDSqXJUszKEu zE7ndoLbijVkwMDdaUW0KQ JuIB69gOKgfFktrM76qcVJ JEMegyShfK19huWmDVSzgN Fqr2m0qElvmj0hiJGoPFYl ejMRjJJawV3kbnNFXQvkDR IbC2OzpfIbZRvqUVKimHF2 iDCaVFcjXaQaDKTqq3a4iF I1vCKbbAI9dGDobTinHB6n oTXlBX0gAU1wYRduTXegrt Xth6QlJP61zIHkdqGywhXf ZGVzaWduYXRlZCBhcyAibW Q0NAXubiYlpTYyZCC4Nklt Q79yr4uxmDKfe9IqMn56yj XaQFDeMpUvx94qkWppp1Ou UCQcIMCiy08wKMAtMZjxKJ 15nwPjBUKvsVBkwuivAh9i KUnaIR19ARgmSK65EBEoCE gxVKIgQ2GnJ1I9SD4ojEwv IHNwZWNpbWVuIGlzIGVudG eeASz4DHwdfBDjzqmkDTxv czIwXGxhbmcxMDMzXGhpY2 ttZdYrCEJtqKrpUDxbu9Bp KOUnGICyTiRnAmLuBT1oRV zaxT3aHBEkBEeaz16lfHPz p31uHGYyOAupVMWtJZTjJd BcbGFuZzEwMzNcaGljaFxm XDacDdGbAJVwJZjzT8quFs BcZnMyMCAgTUcvZXdccGFy fQ== MICROSCOPIC DESCRIPTION l6atjVYcLGHhfKPoZwGkNP (test code = 3371) DbSUMla4ffQGVvxGHrElNn MzNcZnRuYmpcdWMxXGRlZm Aye8cmw089tAQxk2hfVGCi UkF5qJIrTRWogARgR584m8 glb5sudqVevWJ0EWNhFPT9 WZbduhAximA0QPizuKAfJz E3BYobzzNoHMitapGtseAt Eam3XSCpM109RFG8rFbuo8 yqQHR9WQSmUTYhRhHeEr7l zDCqI573YKFxKDGABIXwpT o0SKBjhrTcegQmlLYZh588 K667d6mvODCrvkVyjHwOgt jif0aaD892CJHknSCodiWf EeSaFAKstWQmtLR0NVLmFV 9evdyaJsKnJP3vzoevGgVf ZH4lqcs5HzIwKO5qitvhFy VbPZsjIWQyzqiqCMZdl6Zv vhzfBT8wE8Dau7C4zY2isU XpHKVljDJgYyLuQMNqgm6c hEHbJTtfz7FzSYU0edG0nS RznTSgTTVwTW39Iedft4Nq IhjjTNX8NQWuotGel9Coa4 rgEwRokzBqS2buX9IqTMPu AGYaFLFgBzVdedOzn3Yns7 SxvQWnuLb4x2usIXQbGCJv yYpta4ufZOO8XMZdR6B2fF Hxq6gaKQhuBPWniVA6cabi PHaqJHKlszH2pfzdQJceCG AouTS3jnsyHMsdVQLxWpW9 noqhZKsnIKFsDEJ3CBsta4 53UDJ2SObfNhcwWLuhYBDx bmNvbnRccGduZGVjXHBsYW luXHBsYWluXGYwXGZzMjRc hDcgeKslaN0qQuIqGoVyDQ vwIC1tJDGkU8njpPPoRHBv KOSxF9fqDfPpvV9gzTjmFN aippYaJQWxDl4mTTGqNc6i bWVkLlxwYXJ9 Gross assessment was [facility] performed at (test [facility], Department = 2777) of Pathology, [address] [place] [address], Technical component was [facility]'s performed at ([facility], = [facility]) Department of Pathology, [address] [place] [address], Professional component [facility] was performed at ([facility], Department code = 2779) of Pathology, [address] [place] [address], [facility] [id number] 10:21:00Surgical Pathology Report Case: [id number] Authorizing Provider: Tala Santacruz DPM Collected: 12/30/2019 01:38 PM Ordering Location: [address] Med/Surg Received: 12/31/2019 06:52 AM [...] TISSUE FORMATION Signing Pathologist Direct Phone Line: [phone] signed by Jovita Griffith MD on 01/04/2020 at 10:21 [id number] of left 5th metatarsal, ulcer of bilateral [...] [facility], Department of Pathology, [address] [place] [address], [facility], Department of Pathology, [address] [place] [address], [facility], [facility] of [facility], [address] [place] [address], WBTJIFKBC [id number] 10:47:00 Test Item Value Reference Interpretation Comments [...] negative Staphylococcus SURGICALLY OBTAINED CULTURE + GRAM [id number] 08:31:00 Test Item Value Reference Range Interpretation Comments CULTURE (BEAKER) (test code No growth = 1095) GRAM STAIN RESULT (BEAKER) <1+ WBCs (test code = 1123) GRAM STAIN RESULT (BEAKER) No organisms seen (test code = 92408) SURGICALLY OBTAINED CULTURE + GRAM [id number] 08:19:00 Test Item Value Reference Interpretation Comments Range CULTURE (BEAKER) STENOTROPHOMONAS A 2+ Sten otrophomonas (test code = 1095) MALTOPHILIA maltophil ia Levofloxacin (test S code = 22) Trimethoprim + S Sulfamethoxazole (test code = 47) GRAM STAIN RESULT <1+ WBCs (BEAKER) (test code = 1123) GRAM STAIN RESULT No organisms seen (BEAKER) (test code = 105014) POC-Glucose [id number] 06:47:00 Test Item Value Reference Range Interpretation Comments POC-Glucose Meter (test 102 mg/dL 70-110 : TE STED AT [facility] code = 1538) [facility] [place] [address]: Manager Environmental Affairs/Techni artemio ID = [id number] for Brown, Anne Lab Interpretation (test Normal code = 31168-8) [facility] [id number] 06:47:00 Test Item Value Reference Range Interpretation Comments POC-Glucose Meter (test 102 mg/dL 70-110 : TE STED AT [facility] code = 1538) [address] [place] [address]118: Manager Environmental Affairs/Techni artemio ID = [id number] for Brown, Anne Lab Interpretation (test Normal code = 73141-9) [facility]-GLUCOSE [id number] 06:47:00 Test Item Value Reference Range Interpretation Comments POC-GLUCOSE METER 102 mg/dL 70-110 : TESTED A T [facility] [address]17 (BEAKER) (test code [address], = 1538) [facility] [place] [address]: Manager Environmental Affairs/Techni artemio ID = [id number] for Anne Busby Comprehensive metabolic [id number] 06:34:00 Test Item Value Reference Range Interpretation Comments Protein, Total (test 6.1 See_Comment [Autom ated code = 2885-2) message] The system which generated this result transmit merna reference range : 6.0 - 8.5 gm/dL . The reference range was not u sed to interpret th is result as normal/abnormal . Albumin (test code = 2.3 g/dL 3.5-5 L 05046-2) Alkaline Phosphatase 81 U/L 30-115 (test code = 6768-6) Total Bilirubin (test 0.4 mg/dL 0.1-1.2 code = 1975-2) Sodium (test code = 137 meq/L 595-437 5845-2) Potassium (test code 3.7 meq/L 3.6-5.5 = 2823-3) Chloride (test code = 100 meq/L 98-106 2075-0) CO2 (test code = 28 meq/L 20-29 2028-9) BUN (test code = 14 mg/dL 10-26 3094-0) Creatinine (test code 2.31 mg/dL 0.5-1.2 H = 2160-0) Glucose (test code = 100 mg/dL 70-110 2345-7) Calcium (test code = 7.5 mg/dL 8.5-10.5 L 95218-4) AST (test code = 15 U/L 5-40 1920-8) ALT (test code = 6 U/L 5-50 1742-6) EGFR (test code = 21 mL/min/1.73 [place] [address]-9) NOT ACCURATE CREATININE CLEARANCE IN PREDICTING GLOMERULAR FILTRATION RATE . ESTIMATED GFR I S NOT APPLICABLE FOR DIALYSIS PATIEN ZIA (test code = ZIA) Manager Environmental Affairs ID - ADMIN Lab Interpretation Abnormal (test code = 00361-3) [facility] [id number] 06:34:00 Test Item Value Reference Range Interpretation Comments Protein, Total (test 6.1 See_Comment [Autom ated code = 2885-2) message] The system which generated this result transmit merna reference range : 6.0 - 8.5 gm/dL . The reference range was not u sed to interpret th is result as normal/abnormal . Albumin (test code = 2.3 g/dL 3.5-5 L 83656-3) Alkaline Phosphatase 81 U/L 30-115 (test code = 6768-6) Total Bilirubin (test 0.4 mg/dL 0.1-1.2 code = 1974-2) Sodium (test code = 137 meq/L 140-580 6357-2) Potassium (test code 3.7 meq/L 3.6-5.5 = 2823-3) Chloride (test code = 100 meq/L 98-106 2075-0) CO2 (test code = 28 meq/L 20-29 2028-9) BUN (test code = 14 mg/dL 10-26 3094-0) Creatinine (test code 2.31 mg/dL 0.5-1.2 H = 2160-0) Glucose (test code = 100 mg/dL 70-110 2345-7) Calcium (test code = 7.5 mg/dL 8.5-10.5 L 44825-4) AST (test code = 15 U/L 5-40 1920-8) ALT (test code = 6 U/L 5-50 1742-6) EGFR (test code = 21 mL/min/1.[place] [address]-0) NOT ACCURATE CREATININE CLEARANCE IN PREDICTING GLOMERULAR FILTRATION RATE . ESTIMATED GFR I S NOT APPLICABLE FOR DIALYSIS PATIEN TSAlfred ZIA (test code = ZIA) Manager Environmental Affairs ID - ADMIN Lab Interpretation Abnormal (test code = 95309-8) [facility] Center[facility]PRE[facility] [id number] 06:34:00 Test Item Value Reference Range Interpretation [...] S NOT APPLICABLE FOR DIALYSIS PATIEN TS. Manager Environmental Affairs ID - ADMINCBC with platelet count + automated [id number] 06:06:00 Test Item Value Reference Range Interpretation Comments WBC (test code = 6690-2) 5.7 See_Comment [A utomated message] The system [employer] generated this result transmitted ref erence range: 4.0 - 10 .0 K/L. The refe rence range was not u sed to interpret this result as normal/abnor mal. RBC (test code = 789-8) 2.41 See_Comment L [Au tomated message] The system [employer] generated this result transmitted ref erence range: 4.00 - 5 .00 M/L. The refe rence range was not u sed to interpret this result as normal/abnor mal. MCHC (test code = 786-4) 30.8 See_Comment L [A utomated message] The system [employer] generated this result transmitted ref erence range: [...] L [Aut omated message] 777-3) The system [employer] generated this result transmitted ref erence range: 150 - 43 0 K/CU MM. The referen ce range was not u sed to interpret this result as normal/abnor mal. MPV (test code = 10.5 fL 6-11.5 17043-5) nRBC (test code = 413) 0 See_Comment [Aut omated message] The system [employer] generated this result transmitted ref erence range: [...] See_Comment [Aut omated message] 670) The system [employer] generated this result transmitted ref erence range: 1.80 - 8 .00 K/L. The refe rence range was not u sed to interpret this result as normal/abnor mal. # Lymphs (test code = 1.66 See_Comment [Auto mated message] 414) The system [employer] generated this result transmitted ref erence range: 1.48 - 4 .50 K/L. The refe rence range was not u sed to interpret this result as normal/abnor mal. # Monos (test code = 0.28 See_Comment [Autom ated message] 415) The system [employer] generated this result transmitted ref erence range: 0.00 - 1 .30 K/L. The refe rence range was not u sed to interpret this result as normal/abnor mal. # Eos (test code = 416) 0.12 See_Comment [Au tomated message] The system [employer] generated this result transmitted ref erence range: 0.00 - 0 .50 K/L. The refe rence range was not u sed to interpret this result as normal/abnor mal. # Baso (test code = 417) 0.07 See_Comment [A utomated message] The system [employer] generated this result transmitted ref erence range: 0.00 - 0 .20 K/L. The refe rence range was not u sed to interpret this result as normal/abnor mal. Immature 0 % 0-0 Granulocytes-Relative (test code = 2801) Lab Interpretation (test Abnormal code = 97721-4) [facility] with platelet count + automated [id number] 06:06:00 Test Item Value Reference Range Interpretation Comments WBC (test code = 6690-2) 5.7 See_Comment [A utomated message] The system [employer] generated this result transmitted ref erence range: 4.0 - 10 .0 K/L. The refe rence range was not u sed to interpret this result as normal/abnor mal. RBC (test code = 789-8) 2.41 See_Comment L [Au tomated message] The system [employer] generated this result transmitted ref erence range: 4.00 - 5 .00 M/L. The refe rence range was not u sed to interpret this result as normal/abnor mal. MCHC (test code = 786-4) 30.8 See_Comment L [A utomated message] The system [employer] generated this result transmitted ref erence range: [...] = 84 See_Comment L [Aut omated message] 947-3) The system [employer] generated this result transmitted ref erence range: 150 - 43 0 K/CU MM. The referen ce range was not u sed to interpret this result as normal/abnor mal. MPV (test code = 10.5 fL 6-11.5 43008-6) nRBC (test code = 413) 0 See_Comment [Aut omated message] The system [employer] generated this result transmitted ref erence range: [...] See_Comment [Aut omated message] 670) The system [employer] generated this result transmitted ref erence range: 1.80 - 8 .00 K/L. The refe rence range was not u sed to interpret this result as normal/abnor mal. # Lymphs (test code = 1.66 See_Comment [Auto mated message] 414) The system [employer] generated this result transmitted ref erence range: 1.48 - 4 .50 K/L. The refe rence range was not u sed to interpret this result as normal/abnor mal. # Monos (test code = 0.28 See_Comment [Autom ated message] 415) The system [employer] generated this result transmitted ref erence range: 0.00 - 1 .30 K/L. The refe rence range was not u sed to interpret this result as normal/abnor mal. # Eos (test code = 416) 0.12 See_Comment [Au tomated message] The system [employer] generated this result transmitted ref erence range: 0.00 - 0 .50 K/L. The refe rence range was not u sed to interpret this result as normal/abnor mal. # Baso (test code = 417) 0.07 See_Comment [A utomated message] The system [employer] generated this result transmitted ref erence range: 0.00 - 0 .20 K/L. The refe rence range was not u sed to interpret this result as normal/abnor mal. Immature 0 % 0-0 Granulocytes-Relative (test code = 2801) Lab Interpretation (test Abnormal code = 27515-6) [facility] W/PLT COUNT & AUTO [id number] 06:06:00 Test Item Value Reference Range Interpretation [...] PERCENT (BEAKER) (test code = 2801) POCT-GLUCOSE [id number] 21:02:00 Test Item Value Reference Range Interpretation Comments POC-GLUCOSE METER 167 mg/dL 70-110 H : TESTED A T [facility] [address] (BEAKER) (test code [address] [facility] [address], = [address]) [place] [address]: Manager Environmental Affairs/Techni artemio ID = [id number] for Anne Busby POCT-GLUCOSE [id number] 18:12:00 Test Item Value Reference Range Interpretation Comments POC-GLUCOSE METER 121 mg/dL 70-110 H : TESTED A T [facility] [address] (BEAKER) (test code [facility] [place] [address], = 15[address]) [place] [address]: Manager Environmental Affairs/Techni artemio ID = [id number] for Cortney Cohen POCT-GLUCOSE [id number] 11:54:00 Test Item Value Reference Range Interpretation Comments POC-GLUCOSE METER 117 mg/dL 70-110 H : TESTED A T [facility] [address] (BEAKER) [facility] [address]) [place] [address]: Manager Environmental Affairs/Techni artemio ID = [id number] for Cortney Cohen COMPREHENSIVE METABOLIC [id number] 06:47:00 Test Item Value Reference Range Interpretation [...] S NOT APPLICABLE FOR DIALYSIS PATIEN TS. Manager Environmental Affairs ID - RLFUVNlcuvfhjh5943-93-55 06:42:00 Test Item Value Reference Range Interpretation Comments Magnesium (test code = 1.6 mg/dL 1.5-3 66007-8) ZIA (test code = ZIA) Manager Environmental Affairs ID - ADMIN Lab Interpretation (test Normal code = 36010-3) [facility] CenterMagnesium2020-10-02 06:42:00 Test Item Value Reference Range Interpretation Comments Magnesium (test code = 1.6 mg/dL 1.5-3 93593-0) ZIA (test code = ZIA) Manager Environmental Affairs ID - ADMIN Lab Interpretation (test Normal code = 35246-0) [facility] [id number] 06:42:00 Test Item Value Reference Range Interpretation Comments POC-GLUCOSE METER 101 mg/dL 70-110 : TESTED A T [facility] [address] (BEAKER) (test code [address], = 15[address]) [facility] [place] [address]: Manager Environmental Affairs/Techni artemio ID = [id number] for Anne Busby [id number] 06:42:00 Test Item Value Reference Range Interpretation Comments MAGNESIUM (BEAKER) (test code = 1.6 mg/dL 1.5-3.0 627) Manager Environmental Affairs ID - ADMINCBC W/PLT COUNT & AUTO [id number] 06:37:00 Test Item Value Reference Range Interpretation [...] PERCENT (BEAKER) (test code = 2801) POCT-GLUCOSE [id number] 20:24:00 Test Item Value Reference Range Interpretation Comments POC-GLUCOSE METER 155 mg/dL 70-110 H : TESTED A T [facility] [address]17 (BEAKER) (test code [address], = 15[address]) [facility] [address]: Manager Environmental Affairs/Techni artemio ID = [id number] for Anne Busby POCT-GLUCOSE [id number] 16:39:00 Test Item Value Reference Range Interpretation Comments POC-GLUCOSE METER 164 mg/dL 70-110 H : Notified RN/MD: TESTED (BEAKER) (test code AT [address] = 1538) [facility] [address]: Manager Environmental Affairs/Techni artemio ID = [id number] for Alondra Kelley SARS-CoV2/RT-PCR (Asymptomatic ONLY)2019-12-30 15:57:00 Test Item Value Reference Range Interpretation Comments SARS-COV2/RT-PCR Negative Not Detected, (test code = Negative, See 11206-4) external report for linked test SARS-COV-2 [facility] (test code = 34724-5) ZIA (test code = Negative result for [...] of the Act. Fact Sheet for Healthcare Providers:https://www.[employer]/sites/default/f loco/product/documents/F act_Sheet_HC_Providers_L qiy_OZXO-WkO-3.pdf Fact Sheet for Healthcare Patients:https://www.[employer]/sites/default/fi les/product/documents/Fa ct_Sheet_Patients_Lyra_S ARS-CoV-2.pdf Performing Laboratory:[facility] [place] [address] [facility] (Asymptomatic ONLY)2019-12-30 15:57:00 Test Item Value Reference Range Interpretation Comments SARS-COV2/RT-PCR Negative Not Detected, (test code = Negative, See 46816-0) external report for linked test SARS-COV-2 [facility]ET PERFORMING LAB (test code = 81078-3) ZIA (test code = Negative result for [...] of the Act. Fact Sheet for Healthcare Providers:https://www.[employer]/sites/default/f loco/product/documents/F act_Sheet_HC_Providers_L rua_WVOE-MkD-7.pdf Fact Sheet for Healthcare Patients:https://www.[employer]/sites/default/fi les/product/documents/Fa ct_Sheet_Patients_Lyra_S ARS-CoV-2.pdf Performing Laboratory:[facility], [place] [address] [place], [place] [address]ARS-COV2/RT-PCR ([facility])2019-12-30 15:57:00 Test Item Value Reference Range Interpretation Comments SARS-COV2/RT-PCR (test Negative Not Detected, Negative, code = 6010968) See external report for linked test SARS-COV-2 PERFORMING LAB [facility] J[facility]ET (test code = 5317875) Negative result for this test determines that [...] 564(g) of the Act.Fact Sheet for Healthcare Providers:https://www.[employer]/sites/default/files/product/documents/Fact_Shee u_FW_Hgzpqjkkw_Tgan_TAIF-QwE-1.pdfFact Sheet for Healthcare Patients:https://www.[employer]/sites/default/files/product/ documents/Gfva_Zfjbu_Cluesblg_Kfsf_LXUZ-TcG-7.pdfPerforming Laboratory:[facility] [place], [place] [address]alexys [place], [place] [address]BBSU-QZGTVNR METER 2019-12-30 11:50:00 Test Item Value Reference Range Interpretation Comments POC-GLUCOSE METER 82 mg/dL 70-110 : Notified RN/MD: TESTED (GLOAKER) (test code = AT [facility] [address]) [facility] [address]: Manager Environmental Affairs/Techni artemio ID = [id number] for Alondra Kelley WOUND CULTURE + GRAM [id number] 10:45:00 Test Item Value Reference Interpretation Comments Range CULTURE (GLOAKER) STENOTROPHOMONAS A 1+ Sten otrophomonas (test code = 1095) MALTOPHILIA maltophil ia Levofloxacin (test S code = 22) Trimethoprim + S Sulfamethoxazole (test code = 47) CULTURE (BEAKER) A 1+ Kary (test code = 1095) parapsilo sis GRAM STAIN RESULT <1+ WBCs (BEAKER) (test code = 1123) GRAM STAIN RESULT <1+ gram negative (BEAKER) (test code rods = 013088) POCT-GLUCOSE [id number] 05:50:00 Test Item Value Reference Range Interpretation Comments POC-GLUCOSE METER 103 mg/dL 70-110 : Notified RN/MD: TESTED (BEAKER) (test code AT [facility] [address] = 1538) [place] [facility] [address]: Manager Environmental Affairs/Techni artemio ID = [id number] for Zonia Healy COMPREHENSIVE METABOLIC [id number] 05:44:00 Test Item Value Reference Range Interpretation [...] S NOT APPLICABLE FOR DIALYSIS PATIEN TS. Manager Environmental Affairs ID - ADMINCBC W/PLT COUNT & AUTO [id number] 05:29:00 Test Item Value Reference Range Interpretation [...] PERCENT (BEAKER) (test code = 2801) POCT-GLUCOSE [id number] 21:21:00 Test Item Value Reference Range Interpretation Comments POC-GLUCOSE METER 185 mg/dL 70-110 H : Notified RN/MD: TESTED (BEAKER) (test code AT [facility] [address] PO[address] = 1538) [place] [address]: Manager Environmental Affairs/Techni artemio ID = [id number] for Zonia Healy POCT-GLUCOSE [id number] 11:21:00 Test Item Value Reference Range Interpretation Comments POC-GLUCOSE METER 143 mg/dL 70-110 H : Notified RN/MD: TESTED (BEAKER) (test code AT [facility] [address] PO[address] = 1538) [place] [address]: Manager Environmental Affairs/Techni artemio ID = [id number] for Alondra Kelley COMPREHENSIVE METABOLIC [id number] 06:27:00 Test Item Value Reference Range Interpretation [...] S NOT APPLICABLE FOR DIALYSIS PATIEN TS. Manager Environmental Affairs ID - ADMINPOCT-GLUCOSE [id number] 06:21:00 Test Item Value Reference Range Interpretation Comments POC-GLUCOSE METER 73 mg/dL 70-110 : Notified RN/MD: TESTED (BEAKER) (test code = AT [facility] [address]) [facility] [address]: Manager Environmental Affairs/Techni artemio ID = [id number] for Zonia Healy CBC W/PLT COUNT & AUTO [id number] 06:00:00 Test Item Value Reference Range Interpretation [...] PERCENT (BEAKER) (test code = 2801) POCT-GLUCOSE [id number] 20:48:00 Test Item Value Reference Range Interpretation Comments POC-GLUCOSE METER 84 mg/dL 70-110 : Notified RN/MD: TESTED ([facility]) (test code = AT [address] L [address] [place] [address]) [place] [address]: Manager Environmental Affairs/Techni artemio ID = [id number] for Zonia Healy POCT-GLUCOSE [id number] 17:51:00 Test Item Value Reference Range Interpretation Comments POC-GLUCOSE METER 59 mg/dL 70-110 L : [facility] (test code = [facility], 153) [place] [address]: Manager Environmental Affairs/Techni artemio ID = [id number] for Berta Servin POCT-GLUCOSE [id number] 13:28:00 Test Item Value Reference Range Interpretation Comments POC-GLUCOSE METER 67 mg/dL 70-110 L : [facility] T [facility] (test code = [address]) [facility] [address]: Manager Environmental Affairs/Techni artemio ID = [id number] for Berta Servin POCT-GLUCOSE [id number] 06:04:00 Test Item Value Reference Range Interpretation Comments POC-GLUCOSE METER 94 mg/dL 70-110 : TESTED A T [facility] [address] (BEAKER) (test code = [address]) [place] [address]: Manager Environmental Affairs/Techni artemio ID = [id number] for Anahi Sherman COMPREHENSIVE METABOLIC [id number] 05:35:00 Test Item Value Reference Range Interpretation [...] S NOT APPLICABLE FOR DIALYSIS PATIEN TS. Manager Environmental Affairs ID - ADMINCBC W/PLT COUNT & AUTO [id number] 04:56:00 Test Item Value Reference Range Interpretation [...] PERCENT (BEAKER) (test code = 2801) POCT-GLUCOSE [id number] 20:43:00 Test Item Value Reference Range Interpretation Comments POC-GLUCOSE METER 137 mg/dL 70-110 H : TESTED A T [facility] [address] (BEAKER) (test code [address] [facility] [address], = 1538) [facility] [address]: Manager Environmental Affairs/Techni artemio ID = [id number] for Anahi Sherman MR, EXTREMITY, LOWER, WITHOUT CONTRAST, [id number] 16:55:00MRI LEFT FOOT.Unlisted Reason for Exam - [...] MDReport Verified Date/Time: 12/27/2019 16:55:07 Reading Location: [facility] Radiology Reading Room MR lower extremity without IV contrast left [id number] 16:55:00Interface, External Ris In - 12/27/2019 4:57 [...] Ring Verified Date/Time: 12/27/2019 16:55:07 Reading Location: [facility] Radiology Reading Room Electronically signed by: Adrienne CHU 12/27/2019 04:55 [facility] without IV contrast left [id number] 16:55:00Interface, External Ris In - 12/27/2019 4:57 [...] Ring Verified Date/Time: 12/27/2019 16:55:07 Reading Location: [facility] Radiology Reading Room Electronically signed by: Adrienne CHU 12/27/2019 04:55 [facility] [id number] 14:19:00 Test Item Value Reference Range Interpretation Comments POC-GLUCOSE METER 232 mg/dL 70-110 H : TESTED A T [facility] 1317 (BEAKER) (test code [address], = 1538) [facility] [address]: Manager Environmental Affairs/Techni artemio ID = [id number] for Christina r, Berta CT, CTA AAA, W/ GÓMEZ.EXT.[id number] 11:38:00Bilateral lower extremities Addendum BeginsREPORT STATUS:A I agree with the nonvascular findings with exceptions and emphasis as below:*Moderate right and small left pleural effusions are partially visualized.*Large volume ascites.*Diffuse anasarca*The reflux of contrast into the hepatic veins is concerning for volume overload. Signed: Molly Linares MDReport Verified Date/Time: 12/27/2019 11:38:28 Reading Location: [facility] Diagnostic Imaging Reading Room - [place] [address] [address] angiography of the abdominal aorta and runoff, 26-Dec-19 INDICATION: This is a 64 year old female with with lower leg penetrating trauma presents for assessment. TECHNIQUE: Spiral acquisition before and during intravenous contrast administration using a ComQi multidetector CT scanner. Images were obtained before [...] identified. However, significant calcification identified of the [place] left SFA, for example at image 516, [...] the right popliteal artery is patent, with xygp-hc-txbfktrq diffuse calcification identified with no obstructive lesion [...] However, in the distal left SFA, the [place] artery substantial calcification identified and the stent [...] atherosclerosis identified. 4. In the right, the [place] right SFA is not filled by contrast [...] dictated regarding the non-vascular findings by the Marble Cleaner Radiologist. Signed: Shlomo Dockery MDReport Verified Date/Time: 12/27/2019 07:59:51 Reading Location: [place] [address] CT Reading Room Protein electrophoresis, serum 2019-12-27 [...] as normal/abnormal . ZIA (test code = Manager Environmental Affairs ID - ZIA) LEONIE F Lab Interpretation Abnormal (test code = 96517-5) [facility], [id number] 09:29:00 Test Item Value Reference Range Interpretation [...] as normal/abnormal . ZIA (test code = Manager Environmental Affairs ID - ZIA) CAROLINA F Lab Interpretation Abnormal (test code = 17151-6) [facility] CenterPROTEIN ELECTROPHORESIS, [id number] 09:29:00 Test Item Value Reference Range Interpretation [...] chronic inflammatory response. No monoclonal bands detected. [id number] Rocio Galindo MD (BEAKER) (test code = (electronic signature) 2616) PROTEIN TOTAL SERUM, 6.3 gm/dL 6.0-8.3 SPEP (BEAKER) (test code = 1820) Manager Environmental Affairs ID - [place] FCTA AAA and [id number] 07:59:00Interface, External Ris In - 12/27/2019 11:40 [facility] Reading Room - [address] En[address]FIN[address] REPORT CT angiography of the abdominal aorta and runoff, 26-Dec-19 INDICATION: This is a 64 year old female with with lower leg penetrating trauma presents for assessment. TECHNIQUE: Spiral acquisition before and during intravenous contrast administration using a ComQi multidetector CT scanner. Images were obtained before [...] identified. However, significant calcification identified of the [place] left SFA, for example at image 516, [...] the right popliteal artery is patent, with ekxn-ma-xfnxseae diffuse calcification identified with no obstructive lesion [...] However, in the distal left SFA, the [place] artery substantial calcification identified and the stent [...] atherosclerosis identified. 4. In the right, the [place] right SFA is not filled by contrast [...] dictated regarding the non-vascular findings by the Marble Cleaner Radiologist. Signed: Shlomo Dockery Verified Date/Time: 12/27/2019 07:59:51 Reading Location: [place] [id number] CT Reading Room [facility] and [id number] 07:59:00Interface, External Ris In - 12/27/2019 11:40 [...] [facility] Reading Room - [place] [address] [address] Ends[address]AL REPORT CT angiography of the abdominal aorta and runoff, 26-Dec-19 INDICATION: This is a 64 year old female with with lower leg penetrating trauma presents for assessment. TECHNIQUE: Spiral acquisition before and during intravenous contrast administration using a ComQi multidetector CT scanner. Images were obtained before [...] identified. However, significant calcification identified of the [place] left SFA, for example at image 516, [...] the right popliteal artery is patent, with enyn-ye-sbvdiros diffuse calcification identified with no obstructive lesion [...] However, in the distal left SFA, the [place] artery substantial calcification identified and the stent [...] atherosclerosis identified. 4. In the right, the [place] right SFA is not filled by contrast [...] dictated regarding the non-vascular findings by the Marble Cleaner Radiologist. Signed: Shlomo Dockery MDReport Verified Date/Time: 12/27/2019 07:59:51 Reading Location: [place] [address] [address] Reading Room [facility]PO[facility] [id number] 06:56:00 Test Item Value Reference Range Interpretation Comments POC-GLUCOSE METER 39 mg/dL 70-110 LL : Notified RN/: TESTED (BEAKER) (test code = AT [facility] L [address]) [facility] [address]: Manager Environmental Affairs/Techni artemio ID = [id number] for Anahi Sherman COMPREHENSIVE METABOLIC [id number] 06:15:00 Test Item Value Reference Range Interpretation [...] S NOT APPLICABLE FOR DIALYSIS PATIEN TS. Manager Environmental Affairs ID - ADMINPOCT-GLUCOSE [id number] 06:01:00 Test Item Value Reference Range Interpretation Comments POC-GLUCOSE METER 55 mg/dL 70-110 L : Notified RN/MD: TESTED (BEAKER) (test code = AT SLS L [address]) [facility] [address]: Manager Environmental Affairs/Techni artemio ID = [id number] for Anahi Sherman CBC W/PLT COUNT & AUTO [id number] 05:44:00 Test Item Value Reference Range Interpretation [...] PERCENT (BEAKER) (test code = 2801) POCT-GLUCOSE [id number] 21:03:00 Test Item Value Reference Range Interpretation Comments POC-GLUCOSE METER 278 mg/dL 70-110 H : Notified RN/MD: TESTED ([facility]) (test code AT [facility] [address] = 1538) [place] [facility] [address]: Manager Environmental Affairs/Techni artemio ID = [id number] for Anahi Sherman POCT-GLUCOSE [id number] 16:53:00 Test Item Value Reference Range Interpretation Comments POC-GLUCOSE METER 70 mg/dL 70-110 : TESTED A T [facility] 1317 ([facility]) (test code = [address], [address]) [place] [address]: Manager Environmental Affairs/Techni artemio ID = [id number] for Nalini Jean Baptiste POCT-GLUCOSE [id number] 12:11:00 Test Item Value Reference Range Interpretation Comments POC-GLUCOSE METER 97 mg/dL 70-110 : TESTED A T [facility] [address] (BEAKER) (test code = [address], [address]) [place] [address]: Manager Environmental Affairs/Techni artemio ID = [id number] for Nalini Jean Baptiste POCT-GLUCOSE [id number] 06:21:00 Test Item Value Reference Range Interpretation Comments POC-GLUCOSE METER 71 mg/dL 70-110 : TESTED A T [facility] [address] (BEAKER) (test code = [address], 15[address]) [place] [address]: Manager Environmental Affairs/Techni artemio ID = [id number] for Sukhdeep Alamohael COMPREHENSIVE METABOLIC [id number] 05:50:00 Test Item Value Reference Range Interpretation [...] S NOT APPLICABLE FOR DIALYSIS PATIEN TS. Manager Environmental Affairs ID - ADMINCBC W/PLT COUNT & AUTO [id number] 05:17:00 Test Item Value Reference Range Interpretation [...] (BEAKER) (test code = 2801) Prepare Leuko-Red [id number] 23:54:00 Test Item Value Reference Range Interpretation Comments CROSSMATCH (test code = 2264) COMPATIBLE Unit ABO (test code = O Pos 8819368) UNIT NUMBER (test code = [id number] 934-0) Status (test code = 1582561) [facility] Product (test code RED BLOOD CELLS = 2263) PRODUCT CODE (test code = F3533K16 933-2) [facility] Center[facility]Red [id number] 23:54:00 Test Item Value Reference Range Interpretation Comments CROSSMATCH (test code = 2264) COMPATIBLE Unit ABO (test code = O Pos 2899210) UNIT NUMBER (test code = [id number] 934-0) Status (test code = 6572466) [facility] Blood Bank Product (test code RED BLOOD CELLS = 2263) PRODUCT CODE (test code = M3162O85 933-2) [facility] CenterPO[facility] [id number] 21:03:00 Test Item Value Reference Range Interpretation Comments POC-GLUCOSE METER 87 mg/dL 70-110 : TESTED A T [facility] [address] (BEAKER) (test code = [address], 15[address]) [facility] [place] [address]: Manager Environmental Affairs/Techni artemio ID = [id number] for Nwad iufu, Holly POCT-GLUCOSE [id number] 17:12:00 Test Item Value Reference Range Interpretation Comments POC-GLUCOSE METER 79 mg/dL 70-110 : TESTED A T [facility] [address] (BEAKER) (test code = [address], 1538) [place] [address]: Manager Environmental Affairs/Techni artemio ID = [id number] for Nalini Jean Baptiste POCT-GLUCOSE [id number] 11:37:00 Test Item Value Reference Range Interpretation Comments POC-GLUCOSE METER 262 mg/dL 70-110 H : TESTED A T [facility] [address] (BEAKER) (test code [address], = 1538) [place] [address]: Manager Environmental Affairs/Techni artemio ID = [id number] for Nalini Jean Baptiste COMPREHENSIVE METABOLIC [id number] 06:29:00 Test Item Value Reference Range Interpretation [...] S NOT APPLICABLE FOR DIALYSIS PATIEN TS. Manager Environmental Affairs ID - ADMINCBC W/PLT COUNT & AUTO [id number] 06:12:00 Test Item Value Reference Range Interpretation [...] PERCENT (BEAKER) (test code = 2801) POCT-GLUCOSE [id number] 06:09:00 Test Item Value Reference Range Interpretation Comments POC-GLUCOSE METER 83 mg/dL 70-110 : Notified RN/MD: TESTED (BEAKER) (test code = AT SLS L [address]) [place] [address]: Manager Environmental Affairs/Techni artemio ID = [id number] for Anahi Sherman POCT-GLUCOSE [id number] 16:26:00 Test Item Value Reference Range Interpretation Comments POC-GLUCOSE METER 182 mg/dL 70-110 H : Notified RN/MD: TESTED (BEAKER) [facility] [address] = [address]38) [place] [address]: Manager Environmental Affairs/Techni artemio ID = [id number] for Alondra Kelley, [id number] 09:17:00 Test Item Value Reference Range Interpretation Comments Rh Factor (test code = POS 2589) ABO Grouping (test code O PINK TOP 12/24/19 @ 0824 = 2588) [facility] CenterABORH, [id number] 09:17:00 Test Item Value Reference Range Interpretation Comments Rh Factor (test code = POS 2589) ABO Grouping (test code O PINK TOP 12/24/19 @ 0824 = 2588) [facility] CenterType and screen, [id number] 07:31:00 Test Item Value Reference Range Interpretation Comments ABO/RH AUTOMATED (BEAKER) (test O POSITIVE ECHO code = 2260) Ab Scrn (test code = 890-4) NEGATIVE ECHO [facility] CenterType and screen, [id number] 07:31:00 Test Item Value Reference Range Interpretation Comments ABO/RH AUTOMATED (BEAKER) (test O POSITIVE ECHO code = 2260) Ab Scrn (test code = 890-4) NEGATIVE ECHO [facility] CenterCOMPREHENSIVE METABOLIC [id number] 06:42:00 Test Item Value Reference Range Interpretation [...] S NOT APPLICABLE FOR DIALYSIS PATIEN TS. Manager Environmental Affairs ID - ADMINPOCT-GLUCOSE [id number] 06:23:00 Test Item Value Reference Range Interpretation Comments POC-GLUCOSE METER 88 mg/dL 70-110 : TESTED A T [facility] [address] (BEAKER) (test code = [address], 1538) [facility] [place] [address]: Manager Environmental Affairs/Techni artemio ID = [id number] for Anne Busby CBC W/PLT COUNT & AUTO [id number] 06:23:00 Test Item Value Reference Range Interpretation [...] PERCENT (BEAKER) (test code = 2802) POCT-GLUCOSE [id number] 21:38:00 Test Item Value Reference Range Interpretation Comments POC-GLUCOSE METER 126 mg/dL 70-110 H : TESTED A T [facility] [address] (BEAKER) (test code [address], = 1538) [facility] [address]: Manager Environmental Affairs/Techni artemio ID = [id number] for Anne Busby POCT-GLUCOSE [id number] 16:54:00 Test Item Value Reference Range Interpretation Comments POC-GLUCOSE METER 89 mg/dL 70-110 : Notified RN/MD: TESTED (BEAKER) (test code = AT SLS L [address]) [address], [facility] [address]: Manager Environmental Affairs/Techni artemio ID = [id number] for Alondra Kelley MR, EXTREMITY, LOWER, JOINT, WITHOUT CONTRAST, [id number] 16:10:00Unlisted Reason for Exam - Click Yes [...] Jordanort Verified Date/Time: 12/23/2019 16:10:32 Reading Location: [facility] B1 C013X Ortho Consult Reading Room MR lower extremity joint only without IV contrast left [id number] 16:10:00Interface, External Ris In - 12/23/2019 4:12 [...] MDReport Verified Date/Time: 12/23/2019 16:10:32 Reading Location: [facility] B1 C013X [facility] only without [facility] contrast [facility] Reading [facility], BRAIN, WITHOUT [id number] 15:43:00Unlisted Reason for Exam - Click Yes [...] Date/Time: 12/23/2019 15:43:24 MR brain without IV [id number] 15:43:00Interface, External Ris In - 12/23/2019 3:45 [...] Signed: Berta Muniz Verified Date/Time: 12/23/2019 15:43:24 [facility] without IV [id number] 15:43:00Interface, External Ris In - 12/23/2019 3:45 [...] Signed: Berta Munizort Verified Date/Time: 12/23/2019 15:43:24 [facility] 2019-12-23 14:16:00 Test Item Value Reference Range Interpretation Comments SARS-COV2/RT-PCR (test Negative Not Detected, Negative, code = 0163851) See external report for linked test SARS-COV-2 PERFORMING LAB [facility] JANET (test code = 5734664) Negative result for this test determines that [...] 564(g) of the Act.Fact Sheet for Healthcare Providers:https://www.Sembraireidel.com/sites/default/files/product/documents/Fact_Shee d_YC_Zfojdcpif_Ycxu_SDNY-NoU-4.pdfFact Sheet for Healthcare Patients:https://www.[employer].com/sites/default/files/product/ documents/Rvgv_Wvbkw_Oalnrlcc_Ncpi_QNKI-KbH-6.pdfPerforming Laboratory:[facility], [place] [address]Tnune / lambda light chains, [id number] 12:25:00 Test Item Value Reference Interpretation Comments Range [place] Lt Chain,Free 474.4 mg/L 3.3-19.4 H (test code = 49114-5) Lambda Lt 225.6 mg/L 5.7-26.3 H Chain,Free (test code = 32211-3) [place]/Lambda,Free 2.1 0.26-1.65 H Free annabelle a/lambda (test [...] (test code = Performing Lab ZIA) [facility] [address] [place] [address] Jaguar Stein MD, PhD, CORI Lab Interpretation Abnormal (test code = 62989-0) [facility] CenterKappa / lambda light chains, [id number] 12:25:00 Test Item Value Reference Interpretation Comments Range [place] Lt Chain,Free 474.4 mg/L 3.3-19.4 H (test code = 76757-6) Lambda Lt 225.6 mg/L 5.7-26.3 H Chain,Free (test code = 33571-5) [place]/Lambda,Free 2.1 0.26-1.65 H Free annabelle a/lambda (test [...] = Performing Lab ZIA) EZ [facility] [address] [place] [address] Jaguar Stein MD, PhD, CORI Lab Interpretation Abnormal (test code = 87146-1) [facility] CenterPOCT-GLUCOSE [id number] 11:27:00 Test Item Value Reference Range Interpretation Comments POC-GLUCOSE METER 189 mg/dL 70-110 H : Notified RN/MD: TESTED (BEAKER) (test code AT [facility] [address] = 1538) [facility] [address]: Manager Environmental Affairs/Techni artemio ID = [id number] for Ingrid Kelleyberly ARTERIAL DOPPLER LEGS, [id number] 11:22:00Reason for exam:->non healing ulcer , non [...] MDRtieraort Verified Date/Time: 12/23/2019 11:22:31 Reading Location: [facility] Radiology Reading Room Arterial Doppler Legs [id number] 11:22:00 Interface, External Ris In - 12/23/2019 [...] MDReport Verified Date/Time: 12/23/2019 11:22:31 Reading Location: [facility] Radiology [facility] [id number] 11:22:00Interface, External Ris In - 12/23/2019 11:24 [...] MDReport Verified Date/Time: 12/23/2019 11:22:31 Reading Location: [facility] Radiology Reading Room [facility] PANEL 2019-12-23 04:44:00 Test Item [...] S NOT APPLICABLE FOR DIALYSIS PATIEN TS. Manager Environmental Affairs ID - ADMINCBC W/PLT COUNT & AUTO [id number] 04:35:00 Test Item Value Reference Range Interpretation [...] H PERCENT (BEAKER) (test code = 2801) [id number] 04:29:00 Test Item Value Reference Range Interpretation Comments Ammonia (test code = 36 See_Comment [Autom ated 20796-9) message] The system which generated this result transmit merna reference range : 17 - 80 mol/L . The reference range was not u sed to interpret th is result as normal/abnormal . ZIA (test code = ZIA) Manager Environmental Affairs ID - ADMIN Lab Interpretation Normal (test code = 16277-7) [facility] CenterAmmonia2020-09-24 04:29:00 Test Item Value Reference Range Interpretation Comments Ammonia (test code = 36 See_Comment [Autom ated 60621-3) message] The system which generated this result transmit merna reference range : 17 - 80 mol/L . The reference range was not u sed to interpret th is result as normal/abnormal . ZIA (test code = ZIA) Manager Environmental Affairs ID - ADMIN Lab Interpretation Normal (test code = 94458-1) [facility] CenterAMMONIA2020-09-24 04:29:00 Test Item Value Reference Range Interpretation Comments AMMONIA (BEAKER) (test code = 348) 36 mol/L 17-80 Manager Environmental Affairs ID - ADMINPOCT-GLUCOSE [id number] 20:45:00 Test Item Value Reference Range Interpretation Comments POC-GLUCOSE METER 95 mg/dL 70-110 : TESTED A T [facility] [address] (BEAKER) (test code = [address], [address]) [place] [address]: Manager Environmental Affairs/Techni artemio ID = [id number] for Anne Busby POCT-GLUCOSE [id number] 17:08:00 Test Item Value Reference Range Interpretation Comments POC-GLUCOSE METER 107 mg/dL 70-110 : TESTED A T [facility] [address] (BEAKER) (test code [address], = 1538) [place] [address]: Manager Environmental Affairs/Techni artemio ID = [id number] for Jordyn Fonseca POCT-GLUCOSE [id number] 11:55:00 Test Item Value Reference Range Interpretation Comments POC-GLUCOSE METER 135 mg/dL 70-110 H : TESTED A T [facility] [address] (BEAKER) (test code [address], = 1538) [facility] [address]: Manager Environmental Affairs/Techni artemio ID = [id number] for Jordyn Fonseca Anti-Nuclear Antibody (ROGER)2019-12-22 11:40:00 Test Item Value Reference Range Interpretation Comments ROGER (test code = 79500-6) Positive Negative A ZIA (test code = ZIA) Test performed by IFA method. Lab Interpretation (test Abnormal code = 73989-5) [facility] CenterANA Titer & [id number] 11:40:00 Test Item Value Reference Range Interpretation Comments ROGER Titer (test code = 30034-1) 1:40 ROGER Pattern (test code = 1781) Speckled [facility] CenterAnti-Nuclear Antibody (ROGER)2019-12-22 11:40:00 Test Item Value Reference Range Interpretation Comments ROGER (test code = 45602-2) Positive Negative A ZIA (test code = ZIA) Test performed by IFA method. Lab Interpretation (test Abnormal code = 86113-1) [facility] CenterANA Titer & [id number] 11:40:00 Test Item Value Reference Range Interpretation Comments ROGER Titer (test code = 21744-4) 1:40 ROGER Pattern (test code = 1781) Speckled [facility] CenterANTI-NUCLEAR ANTIBODY (ROGER)2019-12-22 11:40:00 Test Item Value Reference Range Interpretation Comments ANTI-NUCLEAR ANTIBODY (ROGER) (BEAKER) Positive Negative A (test code = 418) Test performed by IFA method.ROGER TITER AND [id number] 11:40:00 Test Item Value Reference Range Interpretation Comments ROGER TITER (BEAKER) (test code = :40 1541) ROGER PATTERN (BEAKER) (test code = Speckled 1781) POCT-GLUCOSE [id number] 06:44:00 Test Item Value Reference Range Interpretation Comments POC-GLUCOSE METER 92 mg/dL 70-110 : TESTED A T [facility] [address] (BEAKER) (test code = [address], 1538) [facility] [address]: Manager Environmental Affairs/Techni artemio ID = [id number] for Anne Busby COMPREHENSIVE METABOLIC [id number] 06:35:00 Test Item Value Reference Range Interpretation [...] S NOT APPLICABLE FOR DIALYSIS PATIEN TS. Manager Environmental Affairs ID - ADMINCBC W/PLT COUNT & AUTO [id number] 06:16:00 Test Item Value Reference Range Interpretation [...] PERCENT (BEAKER) (test code = 2801) POCT-GLUCOSE [id number] 20:38:00 Test Item Value Reference Range Interpretation Comments POC-GLUCOSE METER 85 mg/dL 70-110 : TESTED A T [facility] [address]17 (BEAKER) (test code = [address], 1538) [place] [address]: Manager Environmental Affairs/Techni artemio ID = [id number] for Anne Busby POCT-GLUCOSE [id number] 18:14:00 Test Item Value Reference Range Interpretation Comments POC-GLUCOSE METER 112 mg/dL 70-110 H : TESTED A T [facility] [address] (BEAKER) (test code [address], = 1538) [place] [address]: Manager Environmental Affairs/Techni artemio ID = [id number] for Christina r, Berta POCT-GLUCOSE [id number] 13:00:00 Test Item Value Reference Range Interpretation Comments POC-GLUCOSE METER 77 mg/dL 70-110 : TESTED A T [facility] [address] (BEAKER) (test code = [address], 1538) [place] [address]: Manager Environmental Affairs/Techni artemio ID = [id number] for Christina r, Berta POCT-GLUCOSE [id number] 07:32:00 Test Item Value Reference Range Interpretation Comments POC-GLUCOSE METER 60 mg/dL 70-110 L : TESTED A T [facility] [address] (BEAKER) (test code = [address], 1538) [place] [address]: Manager Environmental Affairs/Techni artemio ID = [id number] for Marissa Page COMPREHENSIVE METABOLIC [id number] 06:11:00 Test Item Value Reference Range Interpretation [...] S NOT APPLICABLE FOR DIALYSIS PATIEN TS. Manager Environmental Affairs ID - ADMINC-Reactive [id number] 06:06:00 Test Item Value Reference Range Interpretation Comments CRP (test code = 676) 1.63 mg/dL 0-0.5 H ZIA (test code = ZIA) Manager Environmental Affairs ID - ADMIN Lab Interpretation (test Abnormal code = 72642-0) [facility] CenterC-Reactive [id number] 06:06:00 Test Item Value Reference Range Interpretation Comments CRP (test code = 676) 1.63 mg/dL 0-0.5 H ZIA (test code = ZIA) Manager Environmental Affairs ID - ADMIN Lab Interpretation (test Abnormal code = 47159-0) [facility] CenterC-REACTIVE [id number] 06:06:00 Test Item Value Reference Range Interpretation Comments C-REACTIVE PROTEIN (BEAKER) (test 1.63 mg/dL 0.00-0.50 H code = 676) Manager Environmental Affairs ID - ADMINPOCT-GLUCOSE [id number] 06:04:00 Test Item Value Reference Range Interpretation Comments POC-GLUCOSE METER 56 mg/dL 70-110 L : Notified RN/MD: TESTED (BEAKER) (test code = AT [address]LS L [address]) [facility] [address]: Manager Environmental Affairs/Techni artemio ID = [id number] for Nelda Abdi CBC W/PLT COUNT & AUTO [id number] 05:53:00 Test Item Value Reference Range Interpretation [...] (BEAKER) (test code = 2801) U/S, ABDOMINAL, [id number] 22:02:00Reason for exam:->thrombocytopenia / eval for hepatosplenomegalyFINAL [...] MDReport Verified Date/Time: 12/20/2019 22:02:21 US abdomen [id number] 22:02:00Interface, External Ris In - 12/20/2019 10:04 [...] Hever Marin MDReport Verified Date/Time: 12/20/2019 22:02:21 [facility] [id number] 22:02:00Interface, External Ris In - 12/20/2019 10:04 [...] Signed: Hever Marin MDReport Verified Date/Time:12/20/2019 22:02:21 [facility] GardensPOCT-GLUCOSE [id number] 20:36:00 Test Item Value Reference Range Interpretation Comments POC-GLUCOSE METER 74 mg/dL 70-110 : Notified RN/MD: TESTED (BEAKER) (test code = AT [address]LS [address]) [facility] [address]: Manager Environmental Affairs/Techni artemio ID = [id number] for Nelda Abdi POCT-GLUCOSE [id number] 17:50:00 Test Item Value Reference Range Interpretation Comments POC-GLUCOSE METER 72 mg/dL 70-110 : TESTED A T [facility] [address] (BEAKER) (test code = [facility] [address] [facility], 1538) [facility] [address]: Manager Environmental Affairs/Techni artemio ID = [id number] for Berta Servin CT, BRAIN, WITHOUT [id number] 16:08:00Unlisted Reason for Exam - Click Yes [...] Date/Time: 12/20/2019 16:08:40 CT brain without IV [id number] 16:08:00Interface, External Ris In - 12/20/2019 4:10 [...] Signed: Berta Muniz Verified Date/Time: 12/20/2019 16:08:40 [facility] without IV [id number] 16:08:00 Interface, External Ris In 12/20/2019 4:10 [...] Signed: Berta Munizort Verified Date/Time: 12/20/2019 16:08:40 [facility]RAD, FOOT, 2 VIEWS, LEFT 2019-12-20 15:15:00Reason for [...] MDRtieraort Verified Date/Time: 12/20/2019 15:15:25 Reading Location: [facility] Radiology Reading Room , FOOT, 2 VIEWS, [id number] 15:15:00Reason for exam:->Rule out osteomyelitisShould this be [...] MDReport Verified Date/Time: 12/20/2019 15:15:25 Reading Location: [facility] Radiology Reading Room XR foot 2 views [id number] 15:15:00Interface, External Ris In - 12/20/2019 3:17 [...] MDReport Verified Date/Time: 12/20/2019 15:15:25 Reading Location: [facility] Radiology Reading Room [facility] foot 2 views [id number] 15:15:00Interface, External Ris In - 12/20/2019 3:17 [...] MDReport Verified Date/Time: 12/20/2019 15:15:25 Reading Location: [facility] Radiology Reading Room [facility] foot 2 views [id number] 15:15:00Interface, External Ris In - 12/20/2019 3:17 [...] Monahaneport Verified Date/Time: 12/20/2019 15:15:25 Reading Location: [facility] Radiology Reading Room [facility] [place] [facility] foot 2 views [id number] 15:15:00Interface, External Ris In - 12/20/2019 3:17 [...] Monahan Verified Date/Time: 12/20/2019 15:15:25 Reading Location: [facility] Radiology Reading Room [facility] [id number] 14:56:00 Test Item Value Reference Range Interpretation Comments AMMONIA (BEAKER) (test code = 348) 33 mol/L 17-80 Manager Environmental Affairs ID - ADMINBlood gas, [id number] 14:41:00 Test Item Value Reference Range Interpretation Comments pH, Arterial (test code 7.33 7.35-7.45 L = 2744-1) pCO2, Arterial (test 58 See_Comment H [Autom ated message] code = 2019-8) The system [facility] generated this result transmit merna reference range : 35 - 45 mmHg. The reference range was not used to interpret this result as normal/abnormal . pO2, Arterial (test 109 See_Comment H [Automa merna message] code = 2703-7) The system [facility] generated this result transmit merna [...] % Lab Interpretation Abnormal (test code = 94530-5) [facility] CenterBlood gas, [id number] 14:41:00 Test Item Value Reference Range Interpretation Comments pH, Arterial (test code 7.33 7.35-7.45 L = 2744-1) pCO2, Arterial (test 58 See_Comment H [Autom ated message] code = 2019-8) The system [facility] generated this result transmit merna reference range : 35 - 45 mmHg. The reference range was not used to interpret this result as normal/abnormal . pO2, Arterial (test 109 See_Comment H [Automa merna message] code = 2703-7) The system [facility] generated this result transmit merna [...] % Lab Interpretation Abnormal (test code = 02885-3) [facility] CenterBLOOD GAS, [id number] 14:41:00 Test Item Value Reference Range Interpretation [...] code = 1819) 32.0 % Occult blood, [id number] 11:56:00 Test Item Value Reference Range Interpretation Comments Occult blood (test code = 2335-8) Negative Negative Lab Interpretation (test code = Normal 39651-2) [facility] CenterOccult blood, [id number] 11:56:00 Test Item Value Reference Range Interpretation Comments Occult blood (test code = 2335-8) Negative Negative Lab Interpretation (test code = Normal 60208-5) [facility] CenterOCCULT BLOOD, [id number] 11:56:00 Test Item Value Reference Range Interpretation Comments FECAL OCCULT BLOOD (BEAKER) (test Negative Negative code = 618) POCT-GLUCOSE [id number] 11:39:00 Test Item Value Reference Range Interpretation Comments POC-GLUCOSE METER 88 mg/dL 70-110 : TESTED A T [facility] [address]17 (BEAKER) (test code = [address] [address], [address]) [facility] [address]: Manager Environmental Affairs/Techni artemio ID = [id number] for Kai Phelpsda Odheqahvdcn9878-19-43 11:22:00 Test Item Value Reference Range Interpretation Comments Haptoglobin (test code = <8 14-258 L 4542-7) ZIA (test code = ZIA) Manager Environmental Affairs ID - LEONIE Jay Lab Interpretation (test Abnormal code = 96746-7) [facility] 11:22:00 Test Item Value Reference Range Interpretation Comments Haptoglobin (test code = <8 14-258 L 4542-7) ZIA (test code = ZIA) Manager Environmental Affairs ID - CAROLINA F Lab Interpretation (test Abnormal code = 67007-6) [facility]IN2020-[facility] 11:22:00 Test Item Value Reference Range Interpretation Comments HAPTOGLOBIN (BEAKER) (test code = < mg/dL 14-258 L 366) Manager Environmental Affairs ID - CAROLINA FT4, [id number] 11:01:00 Test Item Value Reference Range Interpretation Comments Free T4 (test code = 0.52 ng/dL 0.9-1.8 L 3024-7) ZIA (test code = ZIA) Manager Environmental Affairs ID - ADMIN Lab Interpretation (test Abnormal code = 10564-7) [facility] CenterT[facility], [id number] 11:01:00 Test Item Value Reference Range Interpretation Comments Free T4 (test code = 0.52 ng/dL 0.9-1.8 L 3024-7) ZIA (test code = ZIA) Manager Environmental Affairs ID - ADMIN Lab Interpretation (test Abnormal code = 97464-0) [facility], [id number] 11:01:00 Test Item Value Reference Range Interpretation Comments FREE T4 (BEAKER) (test code = 655) 0.52 ng/dL 0.90-1.80 L Manager Environmental Affairs ID - ADMINPeripheral Blood Smear - Path [id number] 08:19:00 Test Item Value Reference Range Interpretation [...] Griffith M.D. code = 2849) (electronic signature) [facility] CenterPer[facility] - Path [id number] 08:19:00 Test Item Value Reference Range Interpretation [...] Griffith M.D. code = 2849) (electronic signature) [facility] CenterPER[facility]HERAL [facility] - PATHOLOGIST REVIEW 2019-12-20 08:19:00 Test Item Value Reference Range Interpretation Comments RBC MORPHOLOGY Target Cells (BEAKER) (test code = 2846) RBC MORPHOLOGY Basophilic Stippling (BEAKER) (test code = 61236) RBC MORPHOLOGY Nucleated Red Blood Cells (BEAKER) (test code = 89403) PERIPHERAL SMR Normochromic normocytic REVIEW (BEAKER) anemia with a few target (test code = 2640) cells, nucleated RBCs and basophilic stippling. No increase in schistocytes. WBCs normal in number and morphology. Thrombocytopenia with normal platelet morphology. [id number]-[id number] Jovita Griffith M.D. 2 (BEAKER) (test (electronic signature) code = 2849) Vitamin B12 and Gbrjvq7284-04-71 06:37:00 Test Item Value Reference Range Interpretation Comments Vitamin B12 (test 1431 pg/mL 211-911 H code = 2132-9) Folate (test code = 17.00 ng/mL See_Comment [Automa merna 2284-8) message] The system which generated this result transmit merna reference range : >=5.4. The reference range was not used to interpret this result as normal/abnormal . ZIA (test code = ZIA) Manager Environmental Affairs ID - ADMIN Lab Interpretation Abnormal (test code = 96734-6) [facility] CenterVitamin B12 and [id number] 06:37:00 Test Item Value Reference Range Interpretation Comments Vitamin B12 (test 1431 pg/mL 211-911 H code = 2132-9) Folate (test code = 17.00 ng/mL See_Comment [Automa merna 2284-8) message] The system which generated this result transmit merna reference range : >=5.4. The reference range was not used to interpret this result as normal/abnormal . ZIA (test code = ZIA) Manager Environmental Affairs ID - ADMIN Lab Interpretation Abnormal (test code = 39879-9) [facility] CenterVITAMIN B12 AND [id number] 06:37:00 Test Item Value Reference Range Interpretation Comments VITAMIN B12 (BEAKER) (test code = 1431 pg/mL 211-911 H 774) FOLATE (BEAKER) (test code = 362) 17.00 ng/mL >=5.4 Manager Environmental Affairs ID - ADMINPOCT-GLUCOSE [id number] 06:32:00 Test Item Value Reference Range Interpretation Comments POC-GLUCOSE METER 79 mg/dL 70-110 : TESTED A T [address] (BEAKER) (test code = [address], [address]) [facility] [place] [address]: Manager Environmental Affairs/Techni artemio ID = [id number] for Anahi Sherman Iiiqnizz2160-21-67 06:25:00 Test Item Value Reference Range Interpretation Comments Ferritin (test code = 595.00 ng/mL 10-291 H 2276-4) ZIA (test code = ZIA) Manager Environmental Affairs ID - ADMIN Lab Interpretation (test Abnormal code = 12236-9) [facility]/Free T4 If Mjbtmpfsq5924-12-76 06:25:00 Test Item Value Reference Range Interpretation Comments TSH (test code = 21.210 See_Comment H [Automated 82323-4) message] The system which generated this result transmit merna reference range : 0.350 - 5.500 uIU/mL. The reference range was not used to interpret this result as normal/abnormal . ZIA (test code = ZIA) Manager Environmental Affairs ID - ADMIN Lab Interpretation Abnormal (test code = 24816-0) [facility] CenterFerritin2020-09-21 06:25:00 Test Item Value Reference Range Interpretation Comments Ferritin (test code = 595.00 ng/mL 10-291 H 2276-4) ZIA (test code = ZIA) Manager Environmental Affairs ID - ADMIN Lab Interpretation (test Abnormal code = 28904-0) [facility]/Free T4 If Jevqrpcsd1309-35-20 06:25:00 Test Item Value Reference Range Interpretation Comments TSH (test code = 21.210 See_Comment H [Automated 88881-4) message] The system which generated this result transmit merna reference range : 0.350 - 5.500 uIU/mL. The reference range was not used to interpret this result as normal/abnormal . ZIA (test code = ZIA) Manager Environmental Affairs ID - ADMIN Lab Interpretation Abnormal (test code = 02477-9) [facility] CenterFERRITIN2020-09-21 06:25:00 Test Item Value Reference Range Interpretation Comments FERRITIN (BEAKER) (test code = 595.00 ng/mL 10.00-291.00 H 361) Manager Environmental Affairs ID - ADMINTSH/FREE T4 IF [id number] 06:25:00 Test Item Value Reference Range Interpretation Comments THYROID STIMULATING HORMONE 21.210 uIU/mL 0.350-5.500 H (BEAKER) (test code = 772) Manager Environmental Affairs ID - QGWPVFazwcmkvyb1064-94-60 06:06:00 Test Item Value Reference Range Interpretation Comments Fibrinogen (test code = 340 mg/dL 787-638 3080-7) ZIA (test code = ZIA) Final Information (Auto Output) Lab Interpretation (test Normal code = 84921-1) [facility] CenterPT/[id number] 06:06:00 Test Item Value Reference Interpretation Comments Range Protime (test code = 13.5 See_Comment H [Autom ated 0152-2) message] The system which generated this result transmitted reference range : 9.3 - 12.0 sec. The reference range was not used to interpret this result as normal/abnormal . INR (test code = 1.25 See_Comment [Automated 0041-6) message] The system which generated this result transmitted reference range : <=5.90. The reference range was not used to interpret this result as normal/abnormal . PTT (test code = 38.2 See_Comment H [Automated 56377-9) message] The system which generated this result [...] Output) Lab Interpretation Abnormal (test code = 96103-1) [facility] CenterFibrinogen2020-09-21 06:06:00 Test Item Value Reference Range Interpretation Comments Fibrinogen (test code = 340 mg/dL 068-904 8349-7) ZIA (test code = ZIA) Final Information (Auto Output) Lab Interpretation (test Normal code = 61464-1) [facility] CenterPT/gPBO2901-71-89 06:06:00 Test Item Value Reference Interpretation Comments Range Protime (test code = 13.5 See_Comment H [Autom ated 5902-2) message] The system which generated this result transmitted reference range : 9.3 - 12.0 sec. The reference range was not used to interpret this result as normal/abnormal . INR (test code = 1.25 See_Comment [Automated 4911-6) message] The system which generated this result transmitted reference range : <=5.90. The reference range was not used to interpret this result as normal/abnormal . PTT (test code = 38.2 See_Comment H [Automated 59874-5) message] The system which generated this result [...] Output) Lab Interpretation Abnormal (test code = 14943-1) [facility] CenterFIBRINOGEN2020-09-21 06:06:00 Test Item Value Reference Range Interpretation Comments FIBRINOGEN LEVEL (BEAKER) (test 340 mg/dL 200-400 code = 658) Final Information (Auto Output)PT/[id number] 06:06:00 Test Item Value Reference Range Interpretation [...] = 2502-3) ZIA (test code = ZIA) Manager Environmental Affairs ID - ADMIN Lab Interpretation (test Abnormal code = 54877-5) [facility] CenterIron, TIBC, % sat. (without ferritin)2019-12-20 05:59:00 Test Item Value Reference Range Interpretation Comments Iron (test code = 2498-4) 92.0 ug/dL 45-170 TIBC (test code = 2500-7) 151 ug/dL 250-550 L Iron % Saturation (test 61 % 20-55 H code = 2502-3) ZIA (test code = ZIA) Manager Environmental Affairs ID - ADMIN Lab Interpretation (test Abnormal code = 67658-3) [facility], % SAT. (WITHOUT FERRITIN)2019-12-20 05:59:00 Test Item Value Reference Range Interpretation Comments IRON (BEAKER) (test code = 547) 92.0 ug/dL 45.0-170.0 TOTAL IRON BINDING CAPACITY 151 ug/dL 250-550 L (BEAKER) (test code = 769) IRON % SATURATION (2) (BEAKER) 61 % 20-55 H (test code = 2590) Manager Environmental Affairs ID - ADMINCOMPREHENSIVE METABOLIC [id number] 05:55:00 Test Item Value Reference Range Interpretation [...] S NOT APPLICABLE FOR DIALYSIS PATIEN TS. Manager Environmental Affairs ID - JEFTMK-dcpog2433-19-21 05:46:00 Test Item Value Reference Range Interpretation Comments D-Dimer, Quant (test 1.09 mg/L <0.50 H code = 42526-1) ZIA (test code = ZIA) REGARDING D-DIMER RESULTS: The 98% NPV (Negative Predictive Value) for DVT/PE exclusion is 0.50 mg/L FEU as suggested by the biztalk software developer and as approved by the FDA.Final Information (Auto Output) Lab Interpretation (test Abnormal code = 67508-8) [facility] CenterD-advdc5284-42-01 05:46:00 Test Item Value Reference Range Interpretation Comments D-Dimer, Quant (test 1.09 mg/L <0.50 H code = 65341-3) ZIA (test code = ZIA) REGARDING D-DIMER RESULTS: The 98% NPV (Negative Predictive Value) for DVT/PE exclusion is 0.50 mg/L FEU as suggested by the biztalk software developer and as approved by the FDA.Final Information (Auto Output) Lab Interpretation (test Abnormal code = 33335-5) [facility] CenterD-[id number] 05:46:00 Test Item Value Reference Range Interpretation Comments D-DIMER QUANTITATIVE (BEAKER) (test 1.09 mg/L <0.50 H code = 671) REGARDING D-DIMER RESULTS: The 98% NPV (Negative Predictive Value) for DVT/PE exclusion is 0.50 mg/LFEU as suggested by the biztalk software developer and as approved by the FDA.Final Information (Auto Output)Reticulocyte [id number] 05:42:00 Test Item Value Reference Range Interpretation Comments % Retic (test code = 43161-7) 5.9 % 0.4-2.9 H Lab Interpretation (test code = Abnormal 61991-7) [facility] CenterReticulocyte [id number] 05:42:00 Test Item Value Reference Range Interpretation Comments % Retic (test code = 08637-6) 5.9 % 0.4-2.9 H Lab Interpretation (test code = Abnormal 95199-9) [facility] CenterRETICULOCYTE [id number] 05:42:00 Test Item Value Reference Range Interpretation Comments RETICULOCYTE COUNT PCT (BEAKER) (test 5.9 % 0.4-2.9 H code = 575) CBC W/PLT COUNT & AUTO [id number] 05:33:00 Test Item Value Reference Range Interpretation [...] U/L 107-206 ZIA (test code = ZIA) Manager Environmental Affairs ID - ADMIN Lab Interpretation (test Normal code = 17025-4) [facility] CenterLactate dehydrogenase (LDH)2019-12-19 21:19:00 Test Item Value Reference Range Interpretation Comments LDH (test code = 2532-0) 178 U/L 107-206 ZIA (test code = ZIA) Manager Environmental Affairs ID - ADMIN Lab Interpretation (test Normal code = 75842-8) [facility] CenterLACTATE DEHYDROGENASE (LDH)2019-12-19 21:19:00 Test Item Value Reference Range Interpretation Comments LACTATE DEHYDROGENASE (BEAKER) (test 178 U/L 107-206 code = 635) Manager Environmental Affairs ID - ADMINPOCT-GLUCOSE [id number] 20:47:00 Test Item Value Reference Range Interpretation Comments POC-GLUCOSE METER 102 mg/dL 70-110 : TESTED A T [address] (BEAKER) (test code [address], = 1538) [facility] 77 [address]: Manager Environmental Affairs/Techni artemio ID = [id number] for Anahi Sherman POCT-GLUCOSE [id number] 16:18:00 Test Item Value Reference Range Interpretation Comments POC-GLUCOSE METER 96 mg/dL 70-110 : TESTED A T [address] (BEAKER) (test code = [address], [address]) [facility] 77 [address]: Manager Environmental Affairs/Techni artemio ID = [id number] for Nalini Jean Baptiste Basic Metabolic [id number] 06:26:00 Test Item Value Reference Range Interpretation Comments Sodium (test code = 138 meq/L 066-199 2399-2) Potassium (test code = 3.9 meq/L 3.6-5.5 2823-3) Chloride (test code = 99 meq/L 98-106 2075-0) CO2 (test code = 30 meq/L 20-29 H 2028-9) BUN (test code = 47 mg/dL 10-26 H 3094-0) Creatinine (test code 3.04 mg/dL 0.5-1.2 H = 2160-0) Glucose (test code = 82 mg/dL 70-110 2345-7) Calcium (test code = 7.9 mg/dL 8.5-10.5 L 14207-9) EGFR (test code = 15 mL/min/1.73 [place] [address]-5) NOT ACCURATE CREATININE CLEARANCE IN PREDICTING GLOMERULAR FILTRATION RATE . ESTIMATED GFR I S NOT APPLICABLE FOR DIALYSIS PATIENTS. ZIA (test code = ZIA) Manager Environmental Affairs ID - ADMIN Lab Interpretation Abnormal (test code = 94872-2) [facility] CenterBasic Metabolic [id number] 06:26:00 Test Item Value Reference Range Interpretation Comments Sodium (test code = 138 meq/L 527-528 7297-2) Potassium (test code = 3.9 meq/L 3.6-5.5 2823-3) Chloride (test code = 99 meq/L 98-106 2075-0) CO2 (test code = 30 meq/L 20-29 H 2028-9) BUN (test code = 47 mg/dL 10-26 H 3094-0) Creatinine (test code 3.04 mg/dL 0.5-1.2 H = 2160-0) Glucose (test code = 82 mg/dL 70-110 2345-7) Calcium (test code = 7.9 mg/dL 8.5-10.5 L 74466-8) EGFR (test code = 15 mL/min/1.[place] [address]-5) NOT ACCURATE CREATININE CLEARANCE IN PREDICTING GLOMERULAR FILTRATION RATE . ESTIMATED GFR I S NOT APPLICABLE FOR DIALYSIS PATIENTS. ZIA (test code = ZIA) Manager Environmental Affairs ID - ADMIN Lab Interpretation Abnormal (test code = 08028-0) [facility] CenterB[facility] MET[facility]OLIC [id number] 06:26:00 Test Item Value Reference Range Interpretation [...] S NOT APPLICABLE FOR DIALYSIS PATIEN TS. Manager Environmental Affairs ID - ADMINCBC W/PLT COUNT & AUTO [id number] 06:04:00 Test Item Value Reference Range Interpretation [...] PERCENT (BEAKER) (test code = 2801) POCT-GLUCOSE [id number] 05:35:00 Test Item Value Reference Range Interpretation Comments POC-GLUCOSE METER 85 mg/dL 70-110 : Notified RN/MD: TESTED (BEAKER) (test code = [address]) [place] [address]: Manager Environmental Affairs/Techni artemio ID = [id number] for Siddhartha Healyar POCT-GLUCOSE [id number] 21:46:00 Test Item Value Reference Range Interpretation Comments POC-GLUCOSE METER 125 mg/dL 70-110 H : Notified RN/MD: TESTED (BEAKER) (test code AT [address] = [address]) [place] [address]: Manager Environmental Affairs/Techni artemio ID = [id number] for Niraj , Zonia POCT-GLUCOSE [id number] 16:17:00 Test Item Value Reference Range Interpretation Comments POC-GLUCOSE METER 103 mg/dL 70-110 : TESTED A T [address] (BEAKER) (test code [address] [facility], = 1538) [place] [address]: Manager Environmental Affairs/Techni artemio ID = [id number] for Akhil rs, Shelea POCT-GLUCOSE [id number] 07:56:00 Test Item Value Reference Range Interpretation Comments POC-GLUCOSE METER 111 mg/dL 70-110 H : TESTED A T [address] (BEAKER) (test code [address], = 1538) [place] 6[address]608: Manager Environmental Affairs/Techni artemio ID = [id number] for Akhil rs, Shelea POCT-GLUCOSE [id number] 06:25:00 Test Item Value Reference Range Interpretation Comments POC-GLUCOSE METER 57 mg/dL 70-110 L : TESTED A T [address] (BEAKER) (test code = [address]) [place] [address]608: Manager Environmental Affairs/Techni artemio ID = [id number] for Brow nDamianen POCT-GLUCOSE [id number] 21:55:00 Test Item Value Reference Range Interpretation Comments POC-GLUCOSE METER 76 mg/dL 70-110 : TESTED A T [address] (BEAKER) (test code = [address], [address]) [place] [address]608: Manager Environmental Affairs/Techni artemio ID = [id number] for Brow n, Anne POCT-GLUCOSE [id number] 18:03:00 Test Item Value Reference Range Interpretation Comments POC-GLUCOSE METER 81 mg/dL 70-110 : TESTED A T [address] (BEAKER) (test code = [address], [address]) [facility] [address]: Manager Environmental Affairs/Techni artemio ID = [id number] for Ericka Daniel POCT-GLUCOSE [id number] 12:33:00 Test Item Value Reference Range Interpretation Comments POC-GLUCOSE METER 73 mg/dL 70-110 : TESTED A T [address] (BEAKER) (test code = [address], 1538) [facility] [address]: Manager Environmental Affairs/Techni artemio ID = [id number] for Marisela Bolton Hepatitis B surface [id number] 10:49:00 Test Item Value Reference Range Interpretation Comments Hep B S Ab (test code <8.0 See_Comment [Auto mated = 09432-0) message] The system which generated this result transmit merna reference range : <8.0 mIU/mL. Th e reference range was not used to interpret this result as normal/abnormal . ZIA (test code = ZIA) Manager Environmental Affairs ID - LEONIE Jay Lab Interpretation Normal (test code = 82033-2) [facility] CenterHepatitis B surface [id number] 10:49:00 Test Item Value Reference Range Interpretation Comments Hep B S Ab (test code <8.0 See_Comment [Auto mated = 12937-7) message] The system which generated this result transmit merna reference range : <8.0 mIU/mL. Th e reference range was not used to interpret this result as normal/abnormal . ZIA (test code = ZIA) Manager Environmental Affairs ID - LEONIE Jay Lab Interpretation Normal (test code = 50029-3) [facility] CenterHEPATITIS B SURFACE [id number] 10:49:00 Test Item Value Reference Range Interpretation Comments HEPATITIS B SURFACE ANTIBODY < mIU/mL <8.0 (BEAKER) (test code = 647) Manager Environmental Affairs ID - LEONIE FHepatitis B core antibody, [id number] 10:43:00 Test Item Value Reference Range Interpretation Comments Hep B Core Total Ab Nonreactive Nonreactive (test code = 44705-4) ZIA (test code = ZIA) Manager Environmental Affairs ID Bijal Jay Lab Interpretation (test Normal code = 72616-1) [facility] C [id number] 10:43:00 Test Item Value Reference Range Interpretation Comments Hepatitis C Ab (test Nonreactive Nonreactive code = 60995-5) ZIA (test code = ZIA) Manager Environmental Affairs DIONICIO Jay Lab Interpretation (test Normal code = 16110-5) [facility] B core antibody, [id number] 10:43:00 Test Item Value Reference Range Interpretation Comments Hep B Core Total Ab Nonreactive Nonreactive (test code = 40931-6) ZIA (test code = ZIA) Manager Environmental Affairs ID Bijal Jay Lab Interpretation (test Normal code = 47086-4) [facility] C [id number] 10:43:00 Test Item Value Reference Range Interpretation Comments Hepatitis C Ab (test Nonreactive Nonreactive code = 02026-8) ZIA (test code = ZIA) Manager Environmental Affairs DIONICIO Jay Lab Interpretation (test Normal code = 95840-1) [facility] C [id number] 10:43:00 Test Item Value Reference Range Interpretation Comments HEPATITIS C ANTIBODY (BEAKER) Nonreactive Nonreactive (test code = 367) Manager Environmental Affairs DIONICIO HADLEY FHEPATITIS B CORE ANTIBODY, [id number] 10:43:00 Test Item Value Reference Range Interpretation Comments HEPATITIS B CORE TOTAL ANTIBODY Nonreactive Nonreactive (BEAKER) (test code = 497) Manager Environmental Affairs ID Bijal HADLEY FPOCT-GLUCOSE [id number] 06:31:00 Test Item Value Reference Range Interpretation Comments POC-GLUCOSE METER 67 mg/dL 70-110 L : TESTED A T [address] (BEAKER) (test code = [address], 15[address]) [facility] [address]: Manager Environmental Affairs/Techni artemio ID = [id number] for Anne Busby COMPREHENSIVE METABOLIC [id number] 05:10:00 Test Item Value Reference Range Interpretation [...] S NOT APPLICABLE FOR DIALYSIS PATIEN TS. Manager Environmental Affairs ID - ADMINCBC W/PLT COUNT & AUTO [id number] 04:36:00 Test Item Value Reference Range Interpretation [...] PERCENT (BEAKER) (test code = 2801) POCT-GLUCOSE [id number] 21:14:00 Test Item Value Reference Range Interpretation Comments POC-GLUCOSE METER 79 mg/dL 70-110 : TESTED A T [address] (BEAKER) (test code = [address] [facility], 1538) [facility] [address]: Manager Environmental Affairs/Techni artemio ID = [id number] for Anne Busby POCT-GLUCOSE [id number] 18:35:00 Test Item Value Reference Range Interpretation Comments POC-GLUCOSE METER 68 mg/dL 70-110 L : Notified RN/MD: TESTED (BEAKER) (test code = [address]) [place] [address]: Manager Environmental Affairs/Techni artemio ID = [id number] for Alondra Kelley SARS-C[facility]PCR [facility]2019-12-16 17:53:00 Test Item Value Reference Range Interpretation Comments SARS-COV2/RT-PCR (test Negative Not Detected, Negative, code = 1631612) See external report for linked test SARS-COV-2 [facility] (test code = 5607415) Negative result for this test determines that [...] 564(g) of the Act.Fact Sheet for Healthcare Providers:https://www.[employer].Wireless Environment/sites/default/files/product/documents/Fact_Shee t_XR_Xfvgrkkjd_Lvmo_GMRZ-KiY-1.pdfFact Sheet for Healthcare Patients:https://www.[employer]/sites/default/files/product/ documents/Fpbd_Zhrty_Qyuppqvn_Reij_FGES-JuZ-5.pdfPerforming Laboratory:[facility], [place] [address]Bemygtrtn B surface [id number] 16:57:00 Test Item Value Reference Range Interpretation Comments HBsAg Screen (test code = Nonreactive Nonreactive 5195-3) ZIA (test code = ZIA) Manager Environmental Affairs ID - ADMIN Lab Interpretation (test Normal code = 01043-2) [facility] CenterHepatitis [facility] surface [id number] 16:57:00 Test Item Value Reference Range Interpretation Comments HBsAg Screen (test code = Nonreactive Nonreactive 5195-3) ZIA (test code = ZIA) Manager Environmental Affairs ID - ADMIN Lab Interpretation (test Normal code = 97724-7) [facility] B SURFACE [id number] 16:57:00 Test Item Value Reference Range Interpretation Comments HEPATITIS B SURFACE ANTIGEN (2) Nonreactive Nonreactive (BEAKER) (test code = 2585) Manager Environmental Affairs ID - ADMINANG, TUNNELED CATHETER VYNQZYHBH3647-01-16 15:06:00Reason for Central Line/PICC?->Need for hemodialysis accessReason [...] the patient's medical record by the nurse. Machinist Helper Marine: Soto Arias M.D. Nurse Practitioner Manager: none. Approach: Right internal jugular vein Estimated [...] Arias MDReport Verified Date/Time: 12/16/2019 15:06:45Reading Location: [facility] Radiology Reading Room IR Tunneled Catheter [id number] 15:06:00 Interface, External Ris In - 12/16/2019 [...] the patient's medical record by the nurse. Machinist Helper Marine: Soto Arias M.D. Ass istant: none. Approach: [...] the procedure well and [facility]. Results: Spot radiograph of the chest demonstrates the new dialysis catheter to lie in theexpected position with its tip overlying the superior right atrium. Impression: 1. Successful, uncomplicated placement of a left internal jugular tunneled dialysiscatheter using sonographic and fluoroscopic guidance and conscious sedation. Signed: Soto Arias MDReport Verified Date/Time: 12/16/2019 15:06:45 Reading Location: [facility] Radiology Reading Room [facility] GardensIR Tunneled Catheter Insertion 2019-12-16 15:06:00Interface, External Ris [...] the patient's medical record by the nurse. Machinist Helper Marine: Soto Arias M.D. Nurse Practitioner Manager: none. Approach: Right internal jugular vein Estimated [...] MDReport Verified Date/Time: 12/16/2019 15:06:45 Reading Location: [facility] Radiology Reading [facility] [place] [id number] 14:59:00 Test Item Value Reference Range Interpretation Comments POC-GLUCOSE METER 70 mg/dL 70-110 : Notified RN/MD: [facility] (test code = AT [facility] L [address]) [facility] [address]: Manager Environmental Affairs/Techni artemio ID = [id number] for romero Alondra kim POCT-GLUCOSE [id number] 11:13:00 Test Item Value Reference Range Interpretation Comments POC-GLUCOSE METER 72 mg/dL 70-110 : Notified RN/MD: TESTED ([facility]) (test code = AT [facility] L [address]) [facility] [address]: Manager Environmental Affairs/Techni artemio ID = [id number] for romero julio Alondra RAD, CHEST, 1 VIEW, NON [id number] 09:20:00Reason for exam:->fallShould this be performed at [...] MDReport Verified Date/Time: 12/16/2019 09:20:06 Reading Location: [facility] Radiology Reading Room XR chest 1 view portable / [id number] 09:20:00Interface, External Ris In - 12/16/2019 9:22 [...] MDReport Verified Date/Time: 12/16/2019 09:20:06 Reading Location: [facility] Radiology Reading Room Electronically yeimi d by: SOTO ARIAS MD on 12/16/2019 09:20 [facility] XR chest 1 view portable / [id number] 09:20:00Interface, External Ris In - 12/16/2019 9:22 [...] MDReport Verified Date/Time: 12/16/2019 09:20:06 Reading Location: [facility] Radiology [facility] 2019-12-16 06:03:00 Test Item Value Reference Range Interpretation Comments POC-GLUCOSE METER 74 mg/dL 70-110 : Notified RN/MD: TESTED (BEAKER) (test code = AT [facility] [address]) [facility] [address]: Manager Environmental Affairs/Techni artemio ID = [id number] for Zonia Healy BASIC METABOLIC [id number] 05:08:00 Test Item Value Reference Range Interpretation [...] S NOT APPLICABLE FOR DIALYSIS PATIISA GUAMAN. Manager Environmental Affairs ID - ADMINProthrombin time/[id number] 05:01:00 Test Item Value Reference Interpretation Comments [...] Output) Lab Interpretation Abnormal (test code = 95958-4) [facility][id number] 05:01:00 Test Item Value Reference Interpretation Comments [...] Output) Lab Interpretation Abnormal (test code = 95687-4) [facility]/[id number] 05:01:00 Test Item Value Reference Range Interpretation [...] Information (Auto Output)CBC W/PLT COUNT & AUTO [id number] 04:46:00 Test Item Value Reference Range Interpretation [...] PERCENT (BEAKER) (test code = 2801) POCT-GLUCOSE [id number] 17:13:00 Test Item Value Reference Range Interpretation Comments POC-GLUCOSE METER 220 mg/dL 70-110 H TESTED AT [facility] 6720 (BEAKER) (test code = [facility] 1538) [address] BASIC METABOLIC [id number] 15:47:00 Test Item Value Reference Range Interpretation [...] NOT APPLICABLE FOR DIALYSIS PATIEN TS. POCT-GLUCOSE [id number] 11:30:00 Test Item Value Reference Range Interpretation Comments POC-GLUCOSE METER 268 mg/dL 70-110 H TESTED AT [facility] 6720 (BEAKER) (test code = JULIANO Osborne [place] 1538) [address] POCT-GLUCOSE [id number] 07:08:00 Test Item Value Reference Range Interpretation Comments POC-GLUCOSE METER 208 mg/dL 70-110 H TESTED AT [facility] 6720 (BEAKER) (test code = JULIANO Osborne [place] 1538) [address] CALCIUM, [id number] 06:47:00 Test Item Value Reference Range Interpretation Comments CALCIUM IONIZED (BEAKER) (test 1.11 mmol/L 1.12-1.27 L code = 698) PH, BLOOD (BEAKER) (test code = 7.40 1810) BASIC METABOLIC [id number] 06:40:00 Test Item Value Reference Range Interpretation [...] S NOT APPLICABLE FOR DIALYSIS PATIEN TS. [id number] 06:33:00 Test Item Value Reference Range Interpretation Comments PHOSPHORUS (BEAKER) (test code = 5.1 mg/dL 2.3-4.7 H 604) [id number] 06:33:00 Test Item Value Reference Range Interpretation Comments MAGNESIUM (BEAKER) (test code = 2.0 mg/dL 1.6-2.6 627) LACTIC ACID, VENOUS, WHOLE [id number] 06:02:00 Test Item Value Reference Range Interpretation Comments LACTATE BLOOD VENOUS (2) (BEAKER) 0.8 mmol/L 0.5-2.2 (test code = 2872) Effective 08/02/2015: Units/Reference Range ChangeNew: 0.5-2.2 mmol/L Previous: 5-20 mg/dLCBC W/PLT COUNT & AUTO [id number] 05:54:00 Test Item Value Reference Range Interpretation [...] PERCENT (BEAKER) (test code = 2801) POCT-GLUCOSE [id number] 21:30:00 Test Item Value Reference Range Interpretation Comments POC-GLUCOSE METER 248 mg/dL 70-110 H TESTED AT [facility] 67[facility] (test code = [place] 1538) [address] RAD, [id number] 21:22:00Reason for exam:->fall, tailbone painFINAL REPORT RAD, [...] MDReport Verified Date/Time: 09/04/2017 21:22:03 Reading Location: [address] Reading Room POCT-GLUCOSE [id number] 17:37:00 Test Item Value Reference Range Interpretation Comments POC-GLUCOSE METER 222 mg/dL 70-110 H TESTED AT [place] [address] (BEAKER) (test code = JULIANO Osborne [place] 1538) [address] POCT-GLUCOSE [id number] 13:55:00 Test Item Value Reference Range Interpretation Comments POC-GLUCOSE METER 194 mg/dL 70-110 H TESTED AT [place] [address] (BEAKER) (test code = JULIANO Osborne [place] 1538) [address] POCT-GLUCOSE [id number] 12:34:00 Test Item Value Reference Range Interpretation Comments POC-GLUCOSE METER 229 mg/dL 70-110 H TESTED AT [place] [address] (BEAKER) (test code = JULIANO Osborne [place] 1538) [address] POCT-GLUCOSE [id number] 08:00:00 Test Item Value Reference Range Interpretation Comments POC-GLUCOSE METER 159 mg/dL 70-110 H TESTED AT [place] [address] (BEAKER) (test code = JULIANO Osborne [facility] 1538) [address] CALCIUM, [id number] 06:00:00 Test Item Value Reference Range Interpretation Comments CALCIUM IONIZED (BEAKER) (test 1.05 mmol/L 1.12-1.27 L code = 698) PH, BLOOD (BEAKER) (test code = 7.45 1810) [id number] 05:59:00 Test Item Value Reference Range Interpretation Comments PHOSPHORUS (BEAKER) (test code = 4.8 mg/dL 2.3-4.7 H 604) [id number] 05:59:00 Test Item Value Reference Range Interpretation Comments MAGNESIUM (BEAKER) (test code = 2.0 mg/dL 1.6-2.6 627) BASIC METABOLIC [id number] 05:59:00 Test Item Value Reference Range Interpretation [...] = 380) CBC W/PLT COUNT & AUTO [id number] 05:32:00 Test Item Value Reference Range Interpretation [...] PERCENT (BEAKER) (test code = 2801) POCT-GLUCOSE [id number] 20:36:00 Test Item Value Reference Range Interpretation Comments POC-GLUCOSE METER 211 mg/dL 70-110 H TESTED AT [place] [address] ([facility]) (test code = [facility] 1538) [address] CREATININE, RANDOM [id number] 19:55:00 Test Item Value Reference Range Interpretation Comments CREATININE URINE (BEAKER) (test 16.1 mg/dL code = 375) Reference Range: No NormalsPROTEIN, RANDOM [id number] 19:55:00 Test Item Value Reference Range Interpretation Comments PROTEIN, URINE (BEAKER) (test code 102 mg/dL 0-14 H = 1569) POCT-GLUCOSE [id number] 18:04:00 Test Item Value Reference Range Interpretation Comments POC-GLUCOSE METER 177 mg/dL 70-110 H TESTED AT [place] [address] ([facility]) (test code = [facility] 1538) [address] POCT-GLUCOSE [id number] 11:59:00 Test Item Value Reference Range Interpretation Comments POC-GLUCOSE METER 244 mg/dL 70-110 H TESTED AT [place] [address] ([facility]) (test code = [facility] 1538) [address] POCT-GLUCOSE [id number] 07:53:00 Test Item Value Reference Range Interpretation Comments POC-GLUCOSE METER 160 mg/dL 70-110 H TESTED AT [facility] 6720 (BEAKER) (test code = [place]IANO [place] 1538) [address] BASIC METABOLIC [id number] 05:29:00 Test Item Value Reference Range Interpretation [...] S NOT APPLICABLE FOR DIALYSIS PATIEN TS. [id number] 05:21:00 Test Item Value Reference Range Interpretation Comments MAGNESIUM (BEAKER) (test code = 2.1 mg/dL 1.6-2.6 627) HEPATIC FUNCTION [id number] 05:21:00 Test Item Value Reference Range Interpretation [...] code = 23 U/L 6-55 347) TROPONIN [id number] 05:18:00 Test Item Value Reference Range Interpretation [...] PERCENT (BEAKER) (test code = 2801) TROPONIN [id number] 23:40:00 Test Item Value Reference Range Interpretation [...] acidosis, acute neurological disease, and persistent tachyarrhythmia.POCT-GLUCOSE [id number] 22:51:00 Test Item Value Reference Range Interpretation Comments POC-GLUCOSE METER 214 mg/dL 70-110 H TESTED AT [facility] 6720 ([facility]) (test code = JULIANO Osborne [facility] 1538) [address] RAD, CHEST, 1 VIEW, NON [id number] 21:42:00Reason for exam:->CHEST PAINShould this be performed at the bedside?->YesFINAL REPORT RAD, CHEST, 1 VIEW, NON DEPT INDICATION: CHEST PAIN COMPARISON: Chest x-ray 4 weeks ago TECHNIQUE: Single frontal view of the chest. IMPRESSION:Cardiomegaly.Mild pulmonary interstitial edema with a small right- sided effusion.No acute osseous abnormality. Signed: Dario Abrahameport Verified Date/Time: 09/02/2017 21:42:11 Reading Location: [facility] B[address] [facility] Reading Room CREATININE, RANDOM [id number] 21:10:00 Test Item Value Reference Range Interpretation Comments CREATININE URINE (BEAKER) (test 35.5 mg/dL code = 375) Reference Range: No NormalsSODIUM, RANDOM [id number] 21:10:00 Test Item Value Reference Range Interpretation Comments SODIUM URINE (BEAKER) (test code = 80 meq/L 243) Reference Range: No NormalsURINALYSIS W/ [id number] 20:59:00 Test Item Value Reference Range Interpretation [...] code = 514) SOURCE(BEAKER) (test code = 6185) BASIC METABOLIC [id number] 16:49:00 Test Item Value Reference Range Interpretation [...] S NOT APPLICABLE FOR DIALYSIS PATIEN TS. [id number] 16:38:00 Test Item Value Reference Range Interpretation [...] (BEAKER) (test code = 700) BASIC METABOLIC [id number] 13:43:00 Test Item Value Reference Range Interpretation [...] NOT APPLICABLE FOR DIALYSIS PATIEN TS. POCT-GLUCOSE [id number] 12:44:00 Test Item Value Reference Range Interpretation Comments POC-GLUCOSE METER 283 mg/dL 70-110 H TESTED AT [facility] 6720 (BEAKER) (test code = [place] 1538) [address] CALCIUM, [id number] 07:03:00 Test Item Value Reference Range Interpretation Comments CALCIUM IONIZED (BEAKER) (test 1.02 mmol/L 1.12-1.27 L code = 698) PH, BLOOD (BEAKER) (test code = 7.43 1810) [id number] 05:28:00 Test Item Value Reference Range Interpretation Comments PHOSPHORUS (BEAKER) (test code = 3.3 mg/dL 2.3-4.7 604) [id number] 05:28:00 Test Item Value Reference Range Interpretation Comments MAGNESIUM (BEAKER) (test code = 1.5 mg/dL 1.6-2.6 L 627) BASIC METABOLIC [id number] 05:28:00 Test Item Value Reference Range Interpretation [...] PATIEN TS. CBC W/PLT COUNT & AUTO [id number] 05:06:00 Test Item Value Reference Range Interpretation [...] PERCENT (BEAKER) (test code = 2801) POCT-GLUCOSE [id number] 21:08:00 Test Item Value Reference Range Interpretation Comments POC-GLUCOSE METER 202 mg/dL 70-110 H TESTED AT [place] [address] ([facility]) (test code = [facility] 1538) [address] POCT-GLUCOSE [id number] 16:50:00 Test Item Value Reference Range Interpretation Comments POC-GLUCOSE METER 287 mg/dL 70-110 H TESTED AT [place] [address] ([facility]) (test code = [facility] 1538) [address] POCT-GLUCOSE [id number] 12:21:00 Test Item Value Reference Range Interpretation Comments POC-GLUCOSE METER 213 mg/dL 70-110 H TESTED AT [place] [address] ([facility]) (test code = [facility] 1538) [address] POCT-GLUCOSE [id number] 08:28:00 Test Item Value Reference Range Interpretation Comments POC-GLUCOSE METER 178 mg/dL 70-110 H TESTED AT [place] [address] ([facility]) (test code = [facility] 1538) [address] CALCIUM, [id number] 07:06:00 Test Item Value Reference Range Interpretation Comments CALCIUM IONIZED ([facility]) (test 0.99 mmol/L 1.12-1.27 L code = 698) PH, BLOOD ([facility]) (test code = 7.42 1810) [id number] 05:37:00 Test Item Value Reference Range Interpretation Comments PHOSPHORUS (BEAKER) (test code = 3.5 mg/dL 2.3-4.7 604) [id number] 05:37:00 Test Item Value Reference Range Interpretation Comments MAGNESIUM (BEAKER) (test code = 1.6 mg/dL 1.6-2.6 627) BASIC METABOLIC [id number] 05:37:00 Test Item Value Reference Range Interpretation [...] PATIEN TS. CBC W/PLT COUNT & AUTO [id number] 05:07:00 Test Item Value Reference Range Interpretation [...] PERCENT (BEAKER) (test code = 2801) POCT-GLUCOSE [id number] 21:24:00 Test Item Value Reference Range Interpretation Comments POC-GLUCOSE METER 255 mg/dL 70-110 H TESTED AT [facility] 67 [facility] (test code = JULIANO Osborne [facility] 1538) [address] POCT-GLUCOSE [id number] 17:11:00 Test Item Value Reference Range Interpretation Comments POC-GLUCOSE METER 244 mg/dL 70-110 H TESTED AT [facility] 6720 [facility] (test code = JULIANO Osborne [facility] 1538) [address] POCT-GLUCOSE [id number] 11:54:00 Test Item Value Reference Range Interpretation Comments POC-GLUCOSE METER 209 mg/dL 70-110 H TESTED AT [facility] 6720 (ROBERT) (test code = [place] 1538) [address] POCT-GLUCOSE [id number] 08:15:00 Test Item Value Reference Range Interpretation Comments POC-GLUCOSE METER 132 mg/dL 70-110 H TESTED AT [facility] 6720 [facility] (test code = JULIANO Osborne [facility] 1538) [address] RAD, CHEST, 1 VIEW, NON [id number] 07:44:00Reason for exam:->edemaShould this be performed at the bedside?->YesFINAL REPORT Chest one view AP 08/07/2017 7:44 AM CLINICAL INDICATION: edema COMPARISON: 05/31/2017 IMPRESSION: Cardiomediastinal contours are stable. There is mild pulmonary edema,asymmetric to the right. There are trace bilateral pleural effusions, with bibasilar linear atelectasis. Sternotomy wires remain midline. Signed: Regan Cespedes Verified Date/Time: 08/07/2017 07:44:22 Reading Location: [facility] Radiology Reading Room [id number] 05:30:00 Test Item Value Reference Range Interpretation Comments FERRITIN (BEAKER) (test code = 361) 87 ng/mL 5-275 CBC W/PLT COUNT & AUTO [id number] 05:21:00 Test Item Value Reference Range Interpretation [...] % 20-55 L (test code = 2590) [id number] 05:11:00 Test Item Value Reference Range Interpretation Comments PHOSPHORUS (BEAKER) (test code = 3.6 mg/dL 2.3-4.7 604) [id number] 05:11:00 Test Item Value Reference Range Interpretation Comments MAGNESIUM (BEAKER) (test code = 2.0 mg/dL 1.6-2.6 627) BASIC METABOLIC [id number] 05:11:00 Test Item Value Reference Range Interpretation [...] H (BEAKER) (test code = 700) CALCIUM, [id number] 04:58:00 Test Item Value Reference Range Interpretation Comments CALCIUM IONIZED (BEAKER) (test 1.04 mmol/L 1.12-1.27 L code = 698) PH, BLOOD (BEAKER) (test code = 7.41 1810) RETICULOCYTE [id number] 04:51:00 Test Item Value Reference Range Interpretation Comments RETICULOCYTE COUNT PCT (BEAKER) (test 1.2 % 0.5-1.7 code = 575) POCT-GLUCOSE [id number] 20:49:00 Test Item Value Reference Range Interpretation Comments POC-GLUCOSE METER 202 mg/dL 70-110 H TESTED AT [place] [address] (BEAKER) (test code = JULIANO REYEZ 1538) [address] CREATININE, RANDOM [id number] 18:38:00 Test Item Value Reference Range Interpretation Comments CREATININE URINE (BEAKER) (test 56.3 mg/dL code = 375) Reference Range: No NormalsPROTEIN, RANDOM [id number] 18:38:00 Test Item Value Reference Range Interpretation Comments PROTEIN, URINE (BEAKER) (test code 189 mg/dL 0-14 H = 1569) URINALYSIS W/ [id number] 18:34:00 Test Item Value Reference Range Interpretation [...] 516) SOURCE(BEAKER) (test code = Urine, Voided 6143) POCT-GLUCOSE [id number] 17:38:00 Test Item Value Reference Range Interpretation Comments POC-GLUCOSE METER 143 mg/dL 70-110 H TESTED AT [place] [address] (BEAKER) (test code = JULIANO Osborne [facility] 1538) [address] POCT-GLUCOSE [id number] 12:30:00 Test Item Value Reference Range Interpretation Comments POC-GLUCOSE METER 218 mg/dL 70-110 H TESTED AT [place] [address] (BEAKER) (test code = JULIANO Osborne [facility] 1538) [address] POCT-GLUCOSE [id number] 08:00:00 Test Item Value Reference Range Interpretation Comments POC-GLUCOSE METER 134 mg/dL 70-110 H TESTED AT [place] [address] (BEAKER) (test code = JULIANO Osborne [facility] 1538) [address] CBC W/PLT COUNT & AUTO [id number] 04:23:00 Test Item Value Reference Range Interpretation [...] (BEAKER) (test code = 2801) BASIC METABOLIC [id number] 04:13:00 Test Item Value Reference Range Interpretation [...] S NOT APPLICABLE FOR DIALYSIS PATIEN TS. [id number] 04:10:00 Test Item Value Reference Range Interpretation Comments PHOSPHORUS (BEAKER) (test code = 4.9 mg/dL 2.3-4.7 H 604) [id number] 04:10:00 Test Item Value Reference Range Interpretation Comments MAGNESIUM (BEAKER) (test code = 1.4 mg/dL 1.6-2.6 L 627) [id number] 04:08:00 Test Item Value Reference Range Interpretation Comments FIBRINOGEN LEVEL (BEAKER) (test 548 mg/dl 225-434 H code = 658) [id number] 04:08:00 Test Item Value Reference Range Interpretation Comments PARTIAL THROMBOPLASTIN TIME 37.7 seconds 22.5-36.0 H (BEAKER) (test code = 760) PROTHROMBIN [id number] 04:07:00 Test Item Value Reference Range Interpretation Comments PROTIME (BEAKER) (test code = 16.2 seconds 11.7-14.7 H 759) INR (BEAKER) (test code = 370) 1.3 <=5.9 RECOMMENDED COUMADIN/WARFARIN INR THERAPY RANGESSTANDARD DOSE: 2.0 - 3.0 Includes: PROPHYLAXIS forvenous thrombosis, systemic embolization; TREATMENT for venous thrombosis and/or pulmonary embolus.HIGH RISK: Target INR is 2.5-3.5 for patients with mechanical heart valves.[id number] 16:59:00 Test Item Value Reference Range Interpretation Comments ACTIVATED CLOTTING TIME 219 sec TEST ED AT [facility] 6720 ([facility]) (test code = [place]AMANDA [place] [address]) [address] BASIC METABOLIC [id number] 14:25:00 Test Item Value Reference Range Interpretation [...] NOT APPLICABLE FOR DIALYSIS PATIEN TS. POCT-GLUCOSE [id number] 13:21:00 Test Item Value Reference Range Interpretation Comments POC-GLUCOSE METER 170 mg/dL 70-110 H TESTED AT [facility] 6720 (BEAKER) (test code = [place]IANO [place] 1538) [address] POTASSIUM-STAT [id number] 13:20:00 Test Item Value Reference Range Interpretation Comments POTASSIUM (BEAKER) (test code = 4.2 meq/L 3.6-5.5 379) SODIUM NA-STAT [id number] 13:20:00 Test Item Value Reference Range Interpretation Comments SODIUM (BEAKER) (test code = 381) 133 meq/L 135-148 L HGB/HCT (H&H) - STAT [id number] 12:34:00 Test Item Value Reference Range Interpretation Comments HEMOGLOBIN (BEAKER) (test code = 10.8 g/dL 12.0-15.0 L 410) HEMATOCRIT (BEAKER) (test code = 32.0 % 36.0-45.0 L 411) POTASSIUM-STAT [id number] 08:15:00 Test Item Value Reference Range Interpretation Comments POTASSIUM (BEAKER) (test code = 4.1 meq/L 3.6-5.5 379) BLOOD GAS, [id number] 08:15:00 Test Item Value Reference Range Interpretation [...] code = 1819) 70.0 % SODIUM NA-STAT [id number] 08:15:00 Test Item Value Reference Range Interpretation Comments SODIUM (BEAKER) (test code = 381) 130 meq/L 135-148 L GLUCOSE-STAT [id number] 08:15:00 Test Item Value Reference Range Interpretation Comments GLUCOSE RANDOM (BEAKER) (test code 172 mg/dL 70-110 H = 652) HGB/HCT (H&H) - STAT [id number] 08:15:00 Test Item Value Reference Range Interpretation Comments HEMOGLOBIN (BEAKER) (test code = 8.8 g/dL 12.0-15.0 L 410) HEMATOCRIT (BEAKER) (test code = 26.0 % 36.0-45.0 L 411) BASIC METABOLIC [id number] 07:37:00 Test Item Value Reference Range Interpretation [...] PATIEN TS. CBC W/PLT COUNT & AUTO [id number] 07:20:00 Test Item Value Reference Range Interpretation [...] PERCENT (BEAKER) (test code = 2801) POCT-GLUCOSE [id number] 07:03:00 Test Item Value Reference Range Interpretation Comments POC-GLUCOSE METER 186 mg/dL 70-110 H TESTED AT [facility] 6720 (BEAKER) (test code = [place] 1538) [address] B-TYPE NATRIURETIC FACTOR (BNP)2017-06-10 12:44:00 Test Item Value Reference Range Interpretation Comments B-TYPE NATRIURETIC PEPTIDE 1264 pg/mL 0-100 H (BEAKER) (test code = 700) [id number] 12:36:00 Test Item Value Reference Range Interpretation Comments MAGNESIUM (BEAKER) (test code = 1.6 mg/dL 1.6-2.6 627) BASIC METABOLIC [id number] 12:36:00 Test Item Value Reference Range Interpretation [...] NOT APPLICABLE FOR DIALYSIS PATIEN TS. POCT-GLUCOSE [id number] 12:04:00 Test Item Value Reference Range Interpretation Comments POC-GLUCOSE METER 274 mg/dL 70-110 H TESTED AT [facility] 6720 (BEAKER) (test code = [facility] [place] 1538) [address] POCT-GLUCOSE [id number] 07:21:00 Test Item Value Reference Range Interpretation Comments POC-GLUCOSE METER 137 mg/dL 70-110 H TESTED AT [facility] 6720 (BEAKER) (test code = [facility] [place] 1538) [address] BASIC METABOLIC [id number] 05:10:00 Test Item Value Reference Range Interpretation [...] 0-0 (BEAKER) (test code = 413) POCT-GLUCOSE [id number] 21:23:00 Test Item Value Reference Range Interpretation Comments POC-GLUCOSE METER 240 mg/dL 70-110 H TESTED AT [place] [address] ([facility]) ([facility] = [facility] 1538) [address] POCT-GLUCOSE [id number] 16:42:00 Test Item Value Reference Range Interpretation Comments POC-GLUCOSE METER 234 mg/dL 70-110 H TESTED AT [place] [address] ([facility]) (test code = [facility] Dylon [facility] 1538) [address] POCT-GLUCOSE [id number] 13:22:00 Test Item Value Reference Range Interpretation Comments POC-GLUCOSE METER 166 mg/dL 70-110 H TESTED AT [place] [address] ([facility]) (test code = [facility] 1538) [id number] RAD, CHEST, 1 VIEW, NON [id number] 09:43:00Reason for exam:->s/p ACBShould this be performed [...] Ring MDReport Verified Date/Time: 05/31/2017 09:43:30 ReadingLocation: [facility] B1 [id number] Ortho Consult Reading Room POCT-GLUCOSE [id number] 06:57:00 Test Item Value Reference Range Interpretation Comments POC-GLUCOSE METER 136 mg/dL 70-110 H TESTED AT [place] [address] ([facility]) (test code = [facility] 1538) [id number] CALCIUM, [id number] 06:41:00 Test Item Value Reference Range Interpretation Comments CALCIUM IONIZED ([facility]) (test 1.10 mmol/L 1.12-1.27 L code = 698) PH, BLOOD (BEAKER) (test code = 7.42 1810) [id number] 06:17:00 Test Item Value Reference Range Interpretation Comments PHOSPHORUS (BEAKER) (test code = 3.3 mg/dL 2.3-4.7 604) [id number] 06:17:00 Test Item Value Reference Range Interpretation Comments MAGNESIUM (BEAKER) (test code = 1.8 mg/dL 1.6-2.6 627) BASIC METABOLIC [id number] 06:17:00 Test Item Value Reference Range Interpretation [...] PATIEN TS. CBC W/PLT COUNT & AUTO [id number] 05:07:00 Test Item Value Reference Range Interpretation [...] PERCENT (BEAKER) (test code = 2801) POCT-GLUCOSE [id number] 20:56:00 Test Item Value Reference Range Interpretation Comments POC-GLUCOSE METER 196 mg/dL 70-110 H TESTED AT [facility] 6720 [facility] (test code = [facility] 1538) 26029 POCT-GLUCOSE [id number] 16:42:00 Test Item Value Reference Range Interpretation Comments POC-GLUCOSE METER 196 mg/dL 70-110 H TESTED AT [facility] 67[facility] ([facility]) (test code = [facility] 1538) 08335 POCT-GLUCOSE [id number] 11:45:00 Test Item Value Reference Range Interpretation Comments POC-GLUCOSE METER 215 mg/dL 70-110 H TESTED AT [facility] 6720 (BEAKER) (test code = JULIANO Osborne [facility] 1538) [address] RAD, CHEST, 1 VIEW, NON [id number] 11:15:00Reason for exam:->s/p ACBShould this be performed at the bedside?->YesFINAL REPORT Chest one view compared to May 28, 2017 Discussion: Airspace opacities are seen in both lower lung regions, probably atelectasis. Correlate clinically for infection. I could not exclude small effusions. No pneumothorax. Upper lungs clear. Signed: Jeannette Nava Verified Date/Time: 05/30/2017 11:15:07 Reading Location: [facility] Radiology Reading Room CALCIUM, [id number] 09:21:00 Test Item Value Reference Range Interpretation Comments CALCIUM IONIZED (BEAKER) (test 1.11 mmol/L 1.12-1.27 L code = 698) PH, BLOOD (BEAKER) (test code = 7.36 1810) BASIC METABOLIC [id number] 07:37:00 Test Item Value Reference Range Interpretation [...] S NOT APPLICABLE FOR DIALYSIS PATIEN TS. [id number] 07:28:00 Test Item Value Reference Range Interpretation Comments PHOSPHORUS (BEAKER) (test code = 3.8 mg/dL 2.3-4.7 604) [id number] 07:28:00 Test Item Value Reference Range Interpretation Comments MAGNESIUM (BEAKER) (test code = 1.9 mg/dL 1.6-2.6 627) CBC W/PLT COUNT & AUTO [id number] 07:26:00 Test Item Value Reference Range Interpretation [...] PERCENT (BEAKER) (test code = 2801) POCT-GLUCOSE [id number] 07:21:00 Test Item Value Reference Range Interpretation Comments POC-GLUCOSE METER 146 mg/dL 70-110 H TESTED AT [place] [address] ([facility]) (test code = [facility] 1538) 78529 POCT-GLUCOSE [id number] 22:02:00 Test Item Value Reference Range Interpretation Comments POC-GLUCOSE METER 201 mg/dL 70-110 H TESTED AT [place] [address] ([facility]) (test code = [facility] 1538) 83601 POCT-GLUCOSE [id number] 18:27:00 Test Item Value Reference Range Interpretation Comments POC-GLUCOSE METER 240 mg/dL 70-110 H TESTED AT [place] [address] ([facility]) (test code = [facility] 1538) 25829 POCT-GLUCOSE [id number] 12:13:00 Test Item Value Reference Range Interpretation Comments POC-GLUCOSE METER 193 mg/dL 70-110 H TESTED AT [facility] 67[address] ([facility]) (test code = [facility] 1538) 84804 POCT-GLUCOSE [id number] 09:02:00 Test Item Value Reference Range Interpretation Comments POC-GLUCOSE METER 132 mg/dL 70-110 H TESTED AT [facility] 67[address] ([facility]) (test code = [facility] 1538) [address]706 CALCIUM, [id number] 05:42:00 Test Item Value Reference Range Interpretation Comments CALCIUM IONIZED (BEAKER) (test 1.12 mmol/L 1.12-1.27 code = 698) PH, BLOOD (BEAKER) (test code = 7.34 1810) COMPREHENSIVE METABOLIC [id number] 05:33:00 Test Item Value Reference Range Interpretation [...] S NOT APPLICABLE FOR DIALYSIS PATIEN TS. [id number] 05:32:00 Test Item Value Reference Range Interpretation Comments PHOSPHORUS (BEAKER) (test code = 3.6 mg/dL 2.3-4.7 604) [id number] 05:32:00 Test Item Value Reference Range Interpretation Comments MAGNESIUM (BEAKER) (test code = 2.2 mg/dL 1.6-2.6 627) CBC W/PLT COUNT & AUTO [id number] 05:01:00 Test Item Value Reference Range Interpretation [...] PERCENT (AKER) (test code = 2801) POCT-GLUCOSE [id number] 21:04:00 Test Item Value Reference Range Interpretation Comments POC-GLUCOSE METER 165 mg/dL 70-110 H TESTED AT [place] [address] ([facility]) (test code = JULIANO Osborne [facility] 1538) 14466 POCT-GLUCOSE [id number] 17:30:00 Test Item Value Reference Range Interpretation Comments POC-GLUCOSE METER 236 mg/dL 70-110 H TESTED AT [place] [address] ([facility]) (test code = JULIANO Obsorne [facility] 1538) [address] RAD, CHEST, 1 VIEW, NON [id number] 13:53:00Reason for exam:->assess for ill-defined opacityShould this [...] MDReport Verified Date/Time: 05/28/2017 13:53:03 Reading Location: [address] Radiology Reading Room POCT-GLUCOSE [id number] 11:53:00 Test Item Value Reference Range Interpretation Comments POC-GLUCOSE METER 215 mg/dL 70-110 H TESTED AT [facility] 6720 ([facility]) (test code = JULIANO Osborne [place] 1538) 12883 POCT-GLUCOSE [id number] 08:32:00 Test Item Value Reference Range Interpretation Comments POC-GLUCOSE METER 168 mg/dL 70-110 H TESTED AT [facility] 67 ([facility]) (test code = BERTNE R [facility] 1858) [address]99 CALCIUM, [id number] 05:44:00 Test Item Value Reference Range Interpretation Comments CALCIUM IONIZED (BEAKER) (test 1.09 mmol/L 1.12-1.27 L code = 698) PH, BLOOD (BEAKER) (test code = 7.38 1810) [id number] 05:44:00 Test Item Value Reference Range Interpretation Comments PHOSPHORUS (BEAKER) (test code = 3.5 mg/dL 2.3-4.7 604) [id number] 05:44:00 Test Item Value Reference Range Interpretation Comments MAGNESIUM (BEAKER) (test code = 1.9 mg/dL 1.6-2.6 627) BASIC METABOLIC [id number] 05:44:00 Test Item Value Reference Range Interpretation [...] PATIEN TS. CBC W/PLT COUNT & AUTO [id number] 05:05:00 Test Item Value Reference Range Interpretation [...] PERCENT (BEAKER) (test code = 2801) POCT-GLUCOSE [id number] 21:03:00 Test Item Value Reference Range Interpretation Comments POC-GLUCOSE METER 173 mg/dL 70-110 H TESTED AT [facility] 6720 (BEAKER) (test code = BERTNE R [place] 1538) [address] [id number] 18:15:00 Test Item Value Reference Range Interpretation Comments ACTIVATED CLOTTING TIME 147 sec TEST ED AT [place] [address] ([facility]) (test code = [place]ULIANO [place] 441) [address] [id number] 18:15:00 Test Item Value Reference Range Interpretation Comments ACTIVATED CLOTTING TIME 246 sec TEST ED AT [place] [address] ([facility]) (test code = JULIANO Osborne [place] 441) [address] POCT-GLUCOSE [id number] 12:39:00 Test Item Value Reference Range Interpretation Comments POC-GLUCOSE METER 219 mg/dL 70-110 H TESTED AT [place] [address] ([facility]) (test code = JULIANO Osborne [place] 1538) [address] RAD, CHEST, 1 VIEW, NON [id number] 10:11:00Reason for exam:->pl effusionShould this be performed at the bedside?->YesFINAL REPORT Chest one view compared to May 26 Discussion: There is cardiac prominence. Upper lungs are clear. Ill-defined basilar densities are similar probably atelectasis. No gross effusion or pneumothorax with bilateral chest tubes in place. Signed: Jeannette Nava Verified Date/Time: 05/27/2017 10:11:44 Reading Location: [facility] Radiology Reading Room POCT-GLUCOSE METER 2017-05-27 07:05:00 Test Item Value Reference Range Interpretation Comments POC-GLUCOSE METER 167 mg/dL 70-110 H TESTED AT [place] [address] ([facility]) (test code = JULIANO Osborne [facility] 1538) [address] CALCIUM, [id number] 06:20:00 Test Item Value Reference Range Interpretation Comments CALCIUM IONIZED ([facility]) (test 0.98 mmol/L 1.12-1.27 L code = 698) PH, BLOOD ([facility]) (test code = 7.50 1810) [id number] 04:56:00 Test Item Value Reference Range Interpretation Comments PHOSPHORUS (BEAKER) (test code = 2.6 mg/dL 2.3-4.7 604) [id number] 04:56:00 Test Item Value Reference Range Interpretation Comments MAGNESIUM (BEAKER) (test code = 2.0 mg/dL 1.6-2.6 627) BASIC METABOLIC [id number] 04:56:00 Test Item Value Reference Range Interpretation [...] PATIEN TS. CBC W/PLT COUNT & AUTO [id number] 04:36:00 Test Item Value Reference Range Interpretation [...] PERCENT (BEAKER) (test code = 2801) POCT-GLUCOSE [id number] 21:29:00 Test Item Value Reference Range Interpretation Comments POC-GLUCOSE METER 147 mg/dL 70-110 H TESTED AT [place] [address] ([facility]) (test code = [facility] 1538) 21080 POCT-GLUCOSE [id number] 17:51:00 Test Item Value Reference Range Interpretation Comments POC-GLUCOSE METER 224 mg/dL 70-110 H TESTED AT [place] [address] ([facility]) (test code = [facility] 1538) 72816 POCT-GLUCOSE [id number] 13:53:00 Test Item Value Reference Range Interpretation Comments POC-GLUCOSE METER 182 mg/dL 70-110 H TESTED AT [place] [address] ([facility]) (test code = [facility] 1538) 18166 RAD, CHEST, 1 VIEW, NON [id number] 08:44:00Reason for exam:->pl effusionShould this be performed [...] MDReport Verified Date/Time: 05/26/2017 08:44:25 Reading Location: [address] Radiology Reading Room POCT- GLUCOSE [id number] 07:43:00 Test Item Value Reference Range Interpretation Comments POC-GLUCOSE METER 113 mg/dL 70-110 H TESTED AT [facility] 6720 (BEAKER) (test code = JULIANO Osborne [facility] 1538) [address] CALCIUM, [id number] 06:31:00 Test Item Value Reference Range Interpretation Comments CALCIUM IONIZED (BEAKER) (test 1.07 mmol/L 1.12-1.27 L code = 698) PH, BLOOD (BEAKER) (test code = 7.38 1810) [id number] 04:51:00 Test Item Value Reference Range Interpretation Comments PHOSPHORUS (BEAKER) (test code = 3.2 mg/dL 2.3-4.7 604) [id number] 04:51:00 Test Item Value Reference Range Interpretation Comments MAGNESIUM (BEAKER) (test code = 2.1 mg/dL 1.6-2.6 627) BASIC METABOLIC [id number] 04:51:00 Test Item Value Reference Range Interpretation [...] PATIEN TS. CBC W/PLT COUNT & AUTO [id number] 04:27:00 Test Item Value Reference Range Interpretation [...] PERCENT (BEAKER) (test code = 2801) POCT-GLUCOSE [id number] 23:48:00 Test Item Value Reference Range Interpretation Comments POC-GLUCOSE METER 123 mg/dL 70-110 H TESTED AT [place] [address] (BEAKER) ([facility] 1538) [address]75 POCT-GLUCOSE [id number] 16:46:00 Test Item Value Reference Range Interpretation Comments POC-GLUCOSE METER 178 mg/dL 70-110 H TESTED AT [place] [address] (BEAKER) (test code = [facility] Dylon [facility] 1538) [address] BASIC METABOLIC [id number] 05:53:00 Test Item Value Reference Range Interpretation [...] S NOT APPLICABLE FOR DIALYSIS PATIEN TS. [id number] 05:52:00 Test Item Value Reference Range Interpretation Comments PHOSPHORUS (BEAKER) (test code = 4.2 mg/dL 2.3-4.7 604) [id number] 05:52:00 Test Item Value Reference Range Interpretation Comments MAGNESIUM (BEAKER) (test code = 2.3 mg/dL 1.6-2.6 627) CALCIUM, [id number] 05:27:00 Test Item Value Reference Range Interpretation Comments CALCIUM IONIZED (BEAKER) (test 1.12 mmol/L 1.12-1.27 code = 698) PH, BLOOD (BEAKER) (test code = 7.38 1810) CBC W/PLT COUNT & AUTO [id number] 05:07:00 Test Item Value Reference Range Interpretation [...] = 2801) RAD, CHEST, 1 VIEW, NON [id number] 04:45:00Reason for exam:->pl effusionShould this be performed [...] HOSPITAL C013Y CT Body Reading Room POCT-GLUCOSE [id number] 01:52:00 Test Item Value Reference Range Interpretation Comments POC-GLUCOSE METER 126 mg/dL 70-110 H TESTED AT [facility] 6720 (BEAKER) (test code = JULIANO Osborne [place] 1538) [address] POCT-GLUCOSE [id number] 13:07:00 Test Item Value Reference Range Interpretation Comments POC-GLUCOSE METER 118 mg/dL 70-110 H TESTED AT [facility] 6720 ([facility]) (test code = JULIANO [place] 1538) [address] BRONCHIAL CULTURE + GRAM [id number] 11:35:00 Test Item Value Reference Range Interpretation Comments CULTURE ([facility]) (test code = 1095) [...] <1+ gram (BEAKER) (test code = positive 449368) cocci in pairs GRAM STAIN RESULT 1+ gram (BEAKER) (test code = variable rods 941338) 1+ Normal respiratory todd presentRAD, CHEST, 1 VIEW, NON [id number] 06:50:00Reason for exam:->pl effusionShould this be performed at the bedside?->YesFINAL REPORT RAD, CHEST, 1 VIEW, NON DEPT INDICATION: pl effusion COMPARISON:Prior day's exam FINDINGS: Portable frontal view of the chest. IMPRESSION: Support Lines: Stable.Lungs and pleura: Unchanged airspace and pleural opacities. No pneumothorax.Heart and mediastinum: Stable contours. Stable surgical changes.Additional findings: None. Signed: JR Elbert, Kelly Bettencourt Verified Date/Time: 05/24/2017 06:50:08 Reading Location: [facility] C013Y CT Body Reading Room BASIC METABOLIC [id number] 04:19:00 Test Item Value Reference Range Interpretation [...] NOT APPLICABLE FOR DIALYSIS PATIEN TS. CALCIUM, [id number] 04:16:00 Test Item Value Reference Range Interpretation Comments CALCIUM IONIZED (BEAKER) (test 1.06 mmol/L 1.12-1.27 L code = 698) PH, BLOOD (BEAKER) (test code = 7.40 1810) [id number] 04:11:00 Test Item Value Reference Range Interpretation Comments PHOSPHORUS (BEAKER) (test code = 6.0 mg/dL 2.3-4.7 H 604) [id number] 04:11:00 Test Item Value Reference Range Interpretation Comments MAGNESIUM (BEAKER) (test code = 2.4 mg/dL 1.6-2.6 627) CBC W/PLT COUNT & AUTO [id number] 03:50:00 Test Item Value Reference Range Interpretation [...] PERCENT (AKER) (test code = 2801) POCT-GLUCOSE [id number] 20:45:00 Test Item Value Reference Range Interpretation Comments POC-GLUCOSE METER 143 mg/dL 70-110 H TESTED AT [facility] 67 ([facility]) (test code = [facility] 1538) [address] POCT-GLUCOSE [id number] 20:45:00 Test Item Value Reference Range Interpretation Comments POC-GLUCOSE METER 145 mg/dL 70-110 H TESTED AT [place] [address] ([facility]) (test code = [facility] 1538) [address] [id number] 13:37:00 Test Item Value Reference Range Interpretation Comments PREALBUMIN (BEAKER) 10 mg/dL 14-45 L Specimen slightly (test code = 586) hemolyzed OXYGEN SATURATION, [id number] 12:31:00 Test Item Value Reference Range Interpretation Comments O2 SATURATION (MEASURED) ([facility]) 94.5 % (test code = 1455) [id number] 11:02:00 Test Item Value Reference Range Interpretation Comments PREALBUMIN (BEAKER) (test code = 10 mg/dL 14-45 L 586) RAD, CHEST, 1 VIEW, NON [id number] 05:14:00while patient is intubated or has chest [...] MDReport Verified Date/Time: 05/23/2017 05:14:04 Reading Location: [facility] C013Y CT Body Reading Room BASIC METABOLIC [id number] 03:48:00 Test Item Value Reference Range Interpretation [...] S NOT APPLICABLE FOR DIALYSIS PATIEN TS. [id number] 03:46:00 Test Item Value Reference Range Interpretation Comments MAGNESIUM (BEAKER) 2.4 mg/dL 1.6-2.6 Specimen slightly (test code = 627) hemolyzed [id number] 03:46:00 Test Item Value Reference Range Interpretation Comments PHOSPHORUS (BEAKER) 6.5 mg/dL 2.3-4.7 H Specimen slightly (test code = 604) hemolyzed CBC W/PLT COUNT & AUTO [id number] 03:26:00 Test Item Value Reference Range Interpretation [...] (BEAKER) (test code = 2801) BLOOD GAS, [id number] 03:18:00 Test Item Value Reference Range Interpretation [...] (test code = 1819) 36.0 % CALCIUM, [id number] 16:32:00 Test Item Value Reference Range Interpretation Comments CALCIUM IONIZED (BEAKER) (test 1.11 mmol/L 1.12-1.27 L code = 698) PH, BLOOD (BEAKER) (test code = 7.39 1810) BASIC METABOLIC [id number] 15:43:00 Test Item Value Reference Range Interpretation [...] NOT APPLICABLE FOR DIALYSIS PATIEN TS. POCT-GLUCOSE [id number] 12:53:00 Test Item Value Reference Range Interpretation Comments POC-GLUCOSE METER 118 mg/dL 70-110 H TESTED AT [facility] 6720 (BEAKER) (test code = JULIANO Osborne [facility] 1538) [address] BLOOD GAS, [id number] 10:42:00 Test Item Value Reference Range Interpretation [...] (test code = 1819) 40.0 % POCT-GLUCOSE [id number] 06:46:00 Test Item Value Reference Range Interpretation Comments POC-GLUCOSE METER 106 mg/dL 70-110 TESTED AT [facility] 6720 (BEAKER) (test code = JULIANO Osborne [place] 1538) [address] RAD, CHEST, 1 VIEW, NON [id number] 05:05:00while patient is intubated or has chest [...] MDReport Verified Date/Time: 05/22/2017 05:05:00 Reading Location: [facility] C013Y CT Body ReadingRoom BASIC METABOLIC [id number] 05:00:00 Test Item Value Reference Range Interpretation [...] S NOT APPLICABLE FOR DIALYSIS PATIEN TS. [id number] 04:41:00 Test Item Value Reference Range Interpretation Comments PHOSPHORUS (BEAKER) (test code = 6.4 mg/dL 2.3-4.7 H 604) [id number] 04:41:00 Test Item Value Reference Range Interpretation Comments MAGNESIUM (BEAKER) (test code = 2.6 mg/dL 1.6-2.6 627) CALCIUM, [id number] 04:26:00 Test Item Value Reference Range Interpretation Comments CALCIUM IONIZED (BEAKER) (test 1.09 mmol/L 1.12-1.27 L code = 698) PH, BLOOD (BEAKER) (test code = 7.40 1810) OXYGEN SATURATION, [id number] 04:25:00 Test Item Value Reference Range Interpretation Comments O2 SATURATION (MEASURED) (BEAKER) 77.0 % (test code = 1455) CBC W/PLT COUNT & AUTO [id number] 04:17:00 Test Item Value Reference Range Interpretation [...] code = 2801) LACTIC ACID, ARTERIAL, WHOLE [id number] 00:07:00 Test Item Value Reference Range Interpretation Comments LACTATE BLOOD 1.0 mmol/L 0.5-2.2 Specimen sligh tly ARTERIAL (2) (BEAKER) hemoly zed (test code = 1474) Effective 08/02/2015: Units/Reference Range ChangeNew: 0.5-2.2 mmol/L Previous: 5-20 mg/dLPOCT-GLUCOSE [id number] 23:47:00 Test Item Value Reference Range Interpretation Comments POC-GLUCOSE METER 180 mg/dL 70-110 H TESTED AT [facility] 6720 (BEAKER) (test code = JULIANO [place] 1538) [address] BLOOD GAS, [id number] 23:46:00 Test Item Value Reference Range Interpretation [...] code = 1819) 100.0 % SODIUM NA-STAT [id number] 23:46:00 Test Item Value Reference Range Interpretation Comments SODIUM (BEAKER) (test code = 381) 134 meq/L 135-148 L GLUCOSE-STAT [id number] 23:46:00 Test Item Value Reference Range Interpretation Comments GLUCOSE RANDOM (BEAKER) (test code 119 mg/dL 70-110 H = 652) HGB/HCT (H&H) - STAT [id number] 23:46:00 Test Item Value Reference Range Interpretation Comments HEMOGLOBIN (BEAKER) (test code = 8.8 g/dL 12.0-15.0 L 410) HEMATOCRIT (BEAKER) (test code = 26.0 % 36.0-45.0 L 411) OXYGEN SATURATION, [id number] 23:45:00 Test Item Value Reference Range Interpretation Comments O2 SATURATION (MEASURED) (BEAKER) 68.1 % (test code = 1455) POTASSIUM-STAT [id number] 23:45:00 Test Item Value Reference Range Interpretation Comments POTASSIUM (BEAKER) (test code = 5.5 meq/L 3.6-5.5 379) POCT-GLUCOSE [id number] 20:58:00 Test Item Value Reference Range Interpretation Comments POC-GLUCOSE METER 133 mg/dL 70-110 H TESTED AT [place] [address] [facility] (test code = JULIANO Osborne [place] 1538) [address] POCT-GLUCOSE [id number] 17:58:00 Test Item Value Reference Range Interpretation Comments POC-GLUCOSE METER 210 mg/dL 70-110 H TESTED AT [place] [address] ([facility]) (test code = [facility] [place] 1538) [address] POCT-GLUCOSE [id number] 17:58:00 Test Item Value Reference Range Interpretation Comments POC-GLUCOSE METER 211 mg/dL 70-110 H TESTED AT [place] [address] ([facility]) (test code = [facility] [place] 1538) [address] POCT-GLUCOSE [id number] 17:58:00 Test Item Value Reference Range Interpretation Comments POC-GLUCOSE METER 232 mg/dL 70-110 H TESTED AT [place] [address] ([facility]) (test code = [facility] [employer] [place] 1538) [address] POCT-GLUCOSE [id number] 17:58:00 Test Item Value Reference Range Interpretation Comments POC-GLUCOSE METER 262 mg/dL 70-110 H TESTED AT [place] [address] ([facility]) (test code = [facility] [employer] [facility] 1538) [address] BLOOD GAS, [id number] 17:01:00 Test Item Value Reference Range Interpretation [...] (test code = 1819) 60.0 % POTASSIUM-STAT [id number] 17:00:00 Test Item Value Reference Range Interpretation Comments POTASSIUM (BEAKER) (test code = 4.8 meq/L 3.6-5.5 379) POCT-GLUCOSE [id number] 15:52:00 Test Item Value Reference Range Interpretation Comments POC-GLUCOSE METER 267 mg/dL 70-110 H TESTED AT [facility] 67 (BEAKER) (test code = JULIANO Osborne [place] 1538) [address] POCT-GLUCOSE [id number] 14:42:00 Test Item Value Reference Range Interpretation Comments POC-GLUCOSE METER 231 mg/dL 70-110 H TESTED AT [place] [address] (BEAKER) (test code = JULIANO Osborne [facility] 1538) [address]191 BODY FLUID CELL COUNT WITH [id number] 14:41:00 Test Item Value Reference Range Interpretation [...] Tube (test code = 2873) BASIC METABOLIC [id number] 14:11:00 Test Item Value Reference Range Interpretation [...] S NOT APPLICABLE FOR DIALYSIS PATIEN TS. [id number] 14:08:00 Test Item Value Reference Range Interpretation Comments PHOSPHORUS (BEAKER) (test code = 7.2 mg/dL 2.3-4.7 H 604) [id number] 14:08:00 Test Item Value Reference Range Interpretation Comments MAGNESIUM (BEDANIELA) (test code = 2.6 mg/dL 1.6-2.6 627) POCT-GLUCOSE [id number] 12:49:00 Test Item Value Reference Range Interpretation Comments POC-GLUCOSE METER 224 mg/dL 70-110 H TESTED AT [facility] 67 ([facility]) (test code = [facility] 1538) [address] POCT-GLUCOSE [id number] 12:49:00 Test Item Value Reference Range Interpretation Comments POC-GLUCOSE METER 248 mg/dL 70-110 H TESTED AT [facility] 67 ([facility]) (test code = [facility] 1538) [address] RAD, CHEST, 1 VIEW, NON [id number] 12:32:00Reason for exam:->re-intubationShould this be performed at [...] Location: [facility] POTASSIUM-STAT [id number] 12:28:00 Test Item Value Reference Range Interpretation Comments POTASSIUM (BEAKER) (test code = 5.5 meq/L 3.6-5.5 379) BLOOD GAS, [id number] 12:28:00 Test Item Value Reference Range Interpretation [...] code = 1819) 100.0 % BLOOD GAS, [id number] 10:53:00 Test Item Value Reference Range Interpretation [...] 36.0 % RAD, CHEST, 1 VIEW, NON [id number] 08:46:00while patient is intubated or has chest [...] MDReport Verified Date/Time: 05/21/2017 08:46:27 Reading Location: [facility] Radiology Reading Room BLOOD GAS, [id number] 05:41:00 Test Item Value Reference Range Interpretation [...] (BEAKER) (test code = 1819) 40 CALCIUM, [id number] 04:35:00 Test Item Value Reference Range Interpretation Comments CALCIUM IONIZED (BEAKER) (test 1.13 mmol/L 1.12-1.27 code = 698) PH, BLOOD (BEAKER) (test code = 7.32 1810) BLOOD GAS, [id number] 04:28:00 Test Item Value Reference Range Interpretation [...] (BEAKER) (test code = 1819) 40.0 % [id number] 04:20:00 Test Item Value Reference Range Interpretation Comments PHOSPHORUS (BEAKER) (test code = 6.2 mg/dL 2.3-4.7 H 604) [id number] 04:20:00 Test Item Value Reference Range Interpretation Comments MAGNESIUM (BEAKER) (test code = 2.4 mg/dL 1.6-2.6 627) HEPATIC FUNCTION [id number] 04:20:00 Test Item Value Reference Range Interpretation [...] = 11 U/L 6-55 347) BASIC METABOLIC [id number] 04:20:00 Test Item Value Reference Range Interpretation [...] APPLICABLE FOR DIALYSIS PATIEN TS. OXYGEN SATURATION, [id number] 04:18:00 Test Item Value Reference Range Interpretation Comments O2 SATURATION (MEASURED) (BEAKER) 68.0 % (test code = 1455) LACTIC ACID, ARTERIAL, WHOLE [id number] 04:12:00 Test Item Value Reference Range Interpretation Comments LACTATE BLOOD ARTERIAL (2) 1.0 mmol/L 0.5-2.2 (BEAKER) (test code = 2874) Effective 08/02/2015: Units/Reference Range ChangeNew: 0.5-2.2 mmol/L Previous: 5-20 mg/dLCBC W/PLT COUNT & AUTO [id number] 04:00:00 Test Item Value Reference Range Interpretation [...] (BEAKER) (test code = 2801) BLOOD GAS, [id number] 00:06:00 Test Item Value Reference Range Interpretation [...] (BEAKER) (test code = 1819) 40.0 % [id number] 18:55:00 Test Item Value Reference Range Interpretation Comments PHOSPHORUS (BEAKER) (test code = 4.8 mg/dL 2.3-4.7 H 604) [id number] 18:55:00 Test Item Value Reference Range Interpretation Comments MAGNESIUM (BEAKER) (test code = 2.3 mg/dL 1.6-2.6 627) BASIC METABOLIC [id number] 18:55:00 Test Item Value Reference Range Interpretation [...] DIALYSIS PATIEN TS. LACTIC ACID, ARTERIAL, WHOLE [id number] 18:53:00 Test Item Value Reference Range Interpretation Comments LACTATE BLOOD 0.9 mmol/L 0.5-2.2 Specimen sligh tly ARTERIAL (2) (BEAKER) hemoly zed (test code = 2874) Effective 08/02/2015: Units/Reference Range ChangeNew: 0.5-2.2 mmol/L Previous: 5-20 mg/dLRAD, CHEST, 1 VIEW, NON [id number] 18:44:00Reason for exam:- >postop cardiacShould this be [...] MDReport Verified Date/Time: 05/20/2017 18:44:30 Reading Location: [address] Consult Reading Room Electronically signed by: MIGUEL BHAKTA M.D. on05/20/2017 06:44 PMCBC W/PLT COUNT & AUTO [id number] 18:38:00 Test Item Value Reference Range Interpretation [...] (BEAKER) (test code = 2801) OXYGEN SATURATION, [id number] 18:36:00 Test Item Value Reference Range Interpretation Comments O2 SATURATION (MEASURED) (BEAKER) 72.5 % (test code = 1455) From distal port of IJ central venous catheterSODIUM NA-STAT [id number] 18:30:00 Test Item Value Reference Range Interpretation Comments SODIUM (BEAKER) (test code = 381) 132 meq/L 135-148 L HGB/HCT (H&H) - STAT [id number] 18:30:00 Test Item Value Reference Range Interpretation Comments HEMOGLOBIN (BEAKER) (test code = 9.4 g/dL 12.0-15.0 L 410) HEMATOCRIT (BEAKER) (test code = 28.0 % 36.0-45.0 L 411) GLUCOSE-STAT [id number] 18:30:00 Test Item Value Reference Range Interpretation Comments GLUCOSE RANDOM (BEAKER) (test code 159 mg/dL 70-110 H = 652) BLOOD GAS, [id number] 18:30:00 Test Item Value Reference Range Interpretation [...] (test code = 1819) 60.0 % CALCIUM, [id number] 18:30:00 Test Item Value Reference Range Interpretation Comments CALCIUM IONIZED (BEAKER) (test 0.94 mmol/L 1.12-1.27 L code = 698) PH, BLOOD (BEAKER) (test code = 7.34 1810) POTASSIUM-STAT [id number] 18:28:00 Test Item Value Reference Range Interpretation [...] 55.0-65.0 (test code = 1413) [facility]RINOLYS[facility] ([facility]) (test 0.0 % 0.0-5.0 code = 1414) [id number] 17:53:00 Test Item Value Reference Range Interpretation Comments ACTIVATED CLOTTING TIME 103 sec TEST ED AT [place] [address] ([facility]) (test code = MATTH[place]ASAMANDA Dylon [place] [address]) [address] [id number] 17:53:00 Test Item Value Reference Range Interpretation Comments ACTIVATED CLOTTING TIME 466 sec TEST ED AT [place] [address] ([facility]) (test code = JULIANO Osborne [place] [address]) [address] [id number] 17:53:00 Test Item Value Reference Range Interpretation Comments ACTIVATED CLOTTING TIME 543 sec TEST ED AT [place] [address] ([facility]) (test code = [place]ASAMANDA [place] [address]) [address] [id number] 17:53:00 Test Item Value Reference Range Interpretation Comments ACTIVATED CLOTTING TIME 549 sec TEST ED AT [place] [address] ([facility]) (test code = [place]ASAMANDA [place] [address]) [address] [id number] 17:53:00 Test Item Value Reference Range Interpretation Comments ACTIVATED CLOTTING TIME 632 sec TEST ED AT [place] [address] ([facility]) (test code = [place]ASAMANDA [place] [address]) [address] [id number] 17:53:00 Test Item Value Reference Range Interpretation Comments ACTIVATED CLOTTING TIME 494 sec TEST ED AT [place] [address] ([facility]) (test code = [place]ASAMANDA [place] [address]) [address] [id number] 17:53:00 Test Item Value Reference Range Interpretation Comments ACTIVATED CLOTTING TIME 587 sec TEST ED AT [place] [address] ([facility]) (test code = [place]ASAMANDA [place] [address]) [address] [id number] 17:53:00 Test Item Value Reference Range Interpretation Comments ACTIVATED CLOTTING TIME 626 sec TEST ED AT [place] [address] ([facility]) (test code = MAT[place]ASAMANDA [place] [address]) [address] [id number] 17:52:00 Test Item Value Reference Range Interpretation Comments ACTIVATED CLOTTING TIME 808 sec TEST ED AT [place] [address] ([facility]) (test code = [place]ASAMANDA [place] [address]) [address] [id number] 16:54:00 Test Item Value Reference Range Interpretation Comments PARTIAL THROMBOPLASTIN TIME 40.2 seconds 22.5-36.0 H (BEAKER) (test code = 760) [id number] 16:53:00 Test Item Value Reference Range Interpretation Comments FIBRINOGEN LEVEL (BEAKER) (test 306 mg/dl 225-434 code = 658) PROTHROMBIN [id number] 16:50:00 Test Item Value Reference Range Interpretation Comments PROTIME (BEAKER) (test code = 19.6 seconds 11.7-14.7 H 759) INR (BEAKER) (test code = 370) 1.7 <=5.9 RECOMMENDED COUMADIN/WARFARIN INR THERAPY RANGESSTANDARD DOSE: 2.0 - 3.0 Includes: PROPHYLAXIS forvenous thrombosis, systemic embolization; TREATMENT for venous thrombosis and/or pulmonary embolus.HIGH RISK: Target INR is 2.5-3.5 for patients with mechanical heart valves.PLATELET [id number] 16:45:00 Test Item Value Reference Range Interpretation Comments PLATELET COUNT (BEAKER) (test 136 K/CU MM 150-450 L code = 756) POTASSIUM-STAT [id number] 16:15:00 Test Item Value Reference Range Interpretation Comments POTASSIUM (BEAKER) (test code = 4.9 meq/L 3.6-5.5 379) BLOOD GAS, [id number] 16:15:00 Test Item Value Reference Range Interpretation [...] code = 1819) 100.0 % SODIUM NA-STAT [id number] 16:15:00 Test Item Value Reference Range Interpretation Comments SODIUM (BEAKER) (test code = 381) 131 meq/L 135-148 L GLUCOSE-STAT [id number] 16:15:00 Test Item Value Reference Range Interpretation Comments GLUCOSE RANDOM (BEAKER) (test code 198 mg/dL 70-110 H = 652) HGB/HCT (H&H) - STAT [id number] 16:15:00 Test Item Value Reference Range Interpretation Comments HEMOGLOBIN (BEAKER) (test code = 7.5 g/dL 12.0-15.0 L 410) HEMATOCRIT (BEAKER) (test code = 22.0 % 36.0-45.0 L 411) CALCIUM, [id number] 16:14:00 Test Item Value Reference Range Interpretation Comments CALCIUM IONIZED (BEAKER) (test 0.91 mmol/L 1.12-1.27 L code = 698) PH, BLOOD (BEAKER) (test code = 7.39 1810) BLOOD GAS, [id number] 15:39:00 Test Item Value Reference Range Interpretation [...] code = 1819) 70.0 % SODIUM NA-STAT [id number] 15:39:00 Test Item Value Reference Range Interpretation Comments SODIUM (BEAKER) (test code = 381) 131 meq/L 135-148 L GLUCOSE-STAT [id number] 15:39:00 Test Item Value Reference Range Interpretation Comments GLUCOSE RANDOM (BEAKER) (test code 186 mg/dL 70-110 H = 652) HGB/HCT (H&H) - STAT [id number] 15:39:00 Test Item Value Reference Range Interpretation Comments HEMOGLOBIN (BEAKER) (test code = 7.5 g/dL 12.0-15.0 L 410) HEMATOCRIT (BEAKER) (test code = 22.0 % 36.0-45.0 L 411) POTASSIUM-STAT [id number] 15:38:00 Test Item Value Reference Range Interpretation Comments POTASSIUM (BEAKER) (test code = 5.3 meq/L 3.6-5.5 379) BLOOD GAS, [id number] 15:24:00 Test Item Value Reference Range Interpretation [...] code = 1819) 70.0 % SODIUM NA-STAT [id number] 15:24:00 Test Item Value Reference Range Interpretation Comments SODIUM (BEAKER) (test code = 381) 130 meq/L 135-148 L GLUCOSE-STAT [id number] 15:24:00 Test Item Value Reference Range Interpretation Comments GLUCOSE RANDOM (BEAKER) (test code 189 mg/dL 70-110 H = 652) HGB/HCT (H&H) - STAT [id number] 15:24:00 Test Item Value Reference Range Interpretation Comments HEMOGLOBIN (BEAKER) (test code = 6.7 g/dL 12.0-15.0 L 410) HEMATOCRIT (BEAKER) (test code = 20.0 % 36.0-45.0 L 411) POTASSIUM-STAT [id number] 15:23:00 Test Item Value Reference Range Interpretation Comments POTASSIUM (BEAKER) (test code = 5.4 meq/L 3.6-5.5 379) BLOOD GAS, [id number] 15:07:00 Test Item Value Reference Range Interpretation [...] code = 1819) 70.0 % SODIUM NA-STAT [id number] 15:07:00 Test Item Value Reference Range Interpretation Comments SODIUM (BEAKER) (test code = 381) 129 meq/L 135-148 L GLUCOSE-STAT [id number] 15:07:00 Test Item Value Reference Range Interpretation Comments GLUCOSE RANDOM (BEAKER) (test code 172 mg/dL 70-110 H = 652) HGB/HCT (H&H) - STAT [id number] 15:07:00 Test Item Value Reference Range Interpretation Comments HEMOGLOBIN (BEAKER) (test code = 7.1 g/dL 12.0-15.0 L 410) HEMATOCRIT (BEAKER) (test code = 21.0 % 36.0-45.0 L 411) POTASSIUM-STAT [id number] 15:04:00 Test Item Value Reference Range Interpretation Comments POTASSIUM (BEAKER) (test code = 5.0 meq/L 3.6-5.5 379) BLOOD GAS, [id number] 14:21:00 Test Item Value Reference Range Interpretation [...] code = 1819) 70.0 % SODIUM NA-STAT [id number] 14:21:00 Test Item Value Reference Range Interpretation Comments SODIUM (BEAKER) (test code = 381) 133 meq/L 135-148 L GLUCOSE-STAT [id number] 14:21:00 Test Item Value Reference Range Interpretation Comments GLUCOSE RANDOM (BEAKER) (test code 160 mg/dL 70-110 H = 652) HGB/HCT (H&H) - STAT [id number] 14:21:00 Test Item Value Reference Range Interpretation Comments HEMOGLOBIN (BEAKER) (test code = 7.5 g/dL 12.0-15.0 L 410) HEMATOCRIT (BEAKER) (test code = 22.0 % 36.0-45.0 L 411) POTASSIUM-STAT [id number] 14:20:00 Test Item Value Reference Range Interpretation Comments POTASSIUM (BEAKER) (test code = 4.7 meq/L 3.6-5.5 379) BLOOD GAS, [id number] 13:58:00 Test Item Value Reference Range Interpretation [...] code = 1819) 80.0 % SODIUM NA-STAT [id number] 13:58:00 Test Item Value Reference Range Interpretation Comments SODIUM (BEAKER) (test code = 381) 132 meq/L 135-148 L GLUCOSE-STAT [id number] 13:58:00 Test Item Value Reference Range Interpretation Comments GLUCOSE RANDOM (BEAKER) (test code 166 mg/dL 70-110 H = 652) HGB/HCT (H&H) - STAT [id number] 13:58:00 Test Item Value Reference Range Interpretation Comments HEMOGLOBIN (BEAKER) (test code = 7.5 g/dL 12.0-15.0 L 410) HEMATOCRIT (BEAKER) (test code = 22.0 % 36.0-45.0 L 411) POTASSIUM-STAT [id number] 13:57:00 Test Item Value Reference Range Interpretation Comments POTASSIUM (BEAKER) (test code = 4.7 meq/L 3.6-5.5 379) BLOOD GAS, [id number] 13:35:00 Test Item Value Reference Range Interpretation [...] (test code = 1819) 80.0 % GLUCOSE-STAT [id number] 13:35:00 Test Item Value Reference Range Interpretation Comments GLUCOSE RANDOM (BEAKER) (test code 130 mg/dL 70-110 H = 652) HGB/HCT (H&H) - STAT [id number] 13:35:00 Test Item Value Reference Range Interpretation Comments HEMOGLOBIN (BEAKER) (test code = 6.7 g/dL 12.0-15.0 L 410) HEMATOCRIT (BEAKER) (test code = 20.0 % 36.0-45.0 L 411) SODIUM NA-STAT [id number] 13:35:00 Test Item Value Reference Range Interpretation Comments SODIUM (BEAKER) (test code = 381) 133 meq/L 135-148 L POTASSIUM-STAT [id number] 13:34:00 Test Item Value Reference Range Interpretation Comments POTASSIUM (BEAKER) (test code = 4.2 meq/L 3.6-5.5 379) BLOOD GAS, [id number] 13:16:00 Test Item Value Reference Range Interpretation [...] code = 1819) 80.0 % SODIUM NA-STAT [id number] 13:16:00 Test Item Value Reference Range Interpretation Comments SODIUM (BEAKER) (test code = 381) 133 meq/L 135-148 L HGB/HCT (H&H) - STAT [id number] 13:16:00 Test Item Value Reference Range Interpretation Comments HEMOGLOBIN (BEAKER) (test code = 6.3 g/dL 12.0-15.0 L 410) HEMATOCRIT (BEAKER) (test code = 19.0 % 36.0-45.0 L 411) CALCIUM, [id number] 13:15:00 Test Item Value Reference Range Interpretation Comments CALCIUM IONIZED (BEAKER) (test 0.98 mmol/L 1.12-1.27 L code = 698) PH, BLOOD (BEAKER) (test code = 7.34 1810) BLOOD GAS, [id number] 13:15:00 Test Item Value Reference Range Interpretation [...] (test code = 1819) 80.0 % GLUCOSE-STAT [id number] 13:14:00 Test Item Value Reference Range Interpretation Comments GLUCOSE RANDOM (BEAKER) (test code = 92 mg/dL 70-110 652) POTASSIUM-STAT [id number] 13:14:00 Test Item Value Reference Range Interpretation Comments POTASSIUM (BEAKER) (test code = 3.9 meq/L 3.6-5.5 379) BLOOD GAS, [id number] 10:54:00 Test Item Value Reference Range Interpretation [...] 1819) 100.0 % HGB/HCT (H&H) - STAT [id number] 10:54:00 Test Item Value Reference Range Interpretation Comments HEMOGLOBIN (BEAKER) (test code = 9.3 g/dL 12.0-15.0 L 410) HEMATOCRIT (BEAKER) (test code = 27.0 % 36.0-45.0 L 411) SODIUM NA-STAT [id number] 10:54:00 Test Item Value Reference Range Interpretation Comments SODIUM (BEAKER) (test code = 381) 132 meq/L 135-148 L GLUCOSE-STAT [id number] 10:52:00 Test Item Value Reference Range Interpretation Comments GLUCOSE RANDOM (BEAKER) (test code = 94 mg/dL 70-110 652) POTASSIUM-STAT [id number] 10:52:00 Test Item Value Reference Range Interpretation Comments POTASSIUM (BEAKER) (test code = 4.0 meq/L 3.6-5.5 379) HEMOGLOBIN [id number] 09:50:00 Test Item Value Reference Range Interpretation Comments HEMOGLOBIN A1C (BEAKER) (test code = 10.6 % 4.3-6.1 H 368) PLATELET AGGREGATION: FUNCTION [id number] 08:27:00 Test Item Value Reference Range Interpretation Comments WEAK ADP 63 % 60-91 RESULT(BEAKER) (test code = 2135) PLATELET FUNCTION 60-100% indicates SCREEN INTERP (BEAKER) normal platelet (test code = 2173) function [id number] Toshia Post MD (BEAKER) (test code = (electronic signature) 2081) PLATELET COUNT AGG 198 K/CU MM 150-450 (BEAKER) (test code = 2656) for patients on clopidogrel in past two weeksPOCT-GLUCOSE [id number] 08:11:00 Test Item Value Reference Range Interpretation Comments POC-GLUCOSE METER 116 mg/dL 70-110 H TESTED AT [facility] 6720 (BEAKER) (test code = [place]O [place] 1538) [address] [id number] 07:10:00 Test Item Value Reference Range Interpretation Comments PHOSPHORUS (BEAKER) (test code = 4.5 mg/dL 2.3-4.7 604) [id number] 07:10:00 Test Item Value Reference Range Interpretation Comments MAGNESIUM (BEAKER) (test code = 2.1 mg/dL 1.6-2.6 627) BASIC METABOLIC [id number] 07:10:00 Test Item Value Reference Range Interpretation [...] = 700) CBC W/PLT COUNT & AUTO [id number] 06:46:00 Test Item Value Reference Range Interpretation [...] PERCENT (BEAKER) (test code = 2801) CALCIUM, [id number] 06:40:00 Test Item Value Reference Range Interpretation Comments CALCIUM IONIZED (BEAKER) (test 1.06 mmol/L 1.12-1.27 L code = 698) PH, BLOOD (BEAKER) (test code = 7.39 1810) POCT-GLUCOSE [id number] 23:22:00 Test Item Value Reference Range Interpretation Comments POC-GLUCOSE METER 165 mg/dL 70-110 H TESTED AT [facility] 67[address] (BEAKER) (test code = [place] 1538) [address] URINE PROTEIN ELECTROPHORESIS, [id number] 18:02:00 Test Item Value Reference Range Interpretation Comments PROTEIN, URINE 305 mg/dL 0-14 H (BEAKER) (test code = 1569) ALBUMIN URINE ELP 70.9 % (BEAKER) (test code = 1018) GAMMA GLOBULIN URINE 29.1 % (BEAKER) (test code = 1015) UPEP, ID-438 (BEAKER) No monoclonal bands (test code = 2603) detected. [id number] Rocio Galindo MD (BEAKER) (test code = (electronic signature) 2608) PROTEIN ELECTROPHORESIS, [id number] 17:57:00 Test Item Value Reference Range Interpretation [...] all globulin fractions. No monoclonal bands detected. [id number] [facility] (test code = (electronic signature) 6344) PROTEIN TOTAL SERUM, 5.5 gm/dL 6.0-8.3 L SPEP (BEAKER) (test code = 0620) POCT-GLUCOSE [id number] 17:15:00 Test Item Value Reference Range Interpretation Comments POC-GLUCOSE METER 209 mg/dL 70-110 H TESTED AT [facility] 6720 (BEAKER) (test code = [facility] 1538) [address] BLOOD GAS, [id number] 15:54:00 Test Item Value Reference Range Interpretation [...] TEMPERATURE (BEAKER) (test 37.0 C code = 1814) FIO2 (BEAKER) (test code = 1819) 36.0 % RAD, CHEST, 1 VIEW, NON [id number] 14:07:00Reason for exam:->SOB, hypoxemiaShould this be performed [...] Regan Cespedes Verified Date/Time: 05/19/2017 14:07:07 Reading Location:[address] Consult Reading Room POCT-GLUCOSE [id number] 11:26:00 Test Item Value Reference Range Interpretation Comments POC-GLUCOSE METER 262 mg/dL 70-110 H TESTED AT [place] [address] ([facility]) (test code = [facility] 1538) [address] POCT-GLUCOSE [id number] 07:37:00 Test Item Value Reference Range Interpretation Comments POC-GLUCOSE METER 170 mg/dL 70-110 H TESTED AT [place] [address] ([facility]) (test code = [facility] 1538) [address] CALCIUM, [id number] 06:06:00 Test Item Value Reference Range Interpretation Comments CALCIUM IONIZED (BEAKER) (test 1.05 mmol/L 1.12-1.27 L code = 698) [facility]LOOD [facility] (test code = 7.41 1810) [id number] 05:38:00 Test Item Value Reference Range Interpretation Comments PHOSPHORUS (BEAKER) (test code = 3.9 mg/dL 2.3-4.7 604) [id number] 05:38:00 Test Item Value Reference Range Interpretation Comments MAGNESIUM (BEAKER) (test code = 2.2 mg/dL 1.6-2.6 627) BASIC METABOLIC [id number] 05:38:00 Test Item Value Reference Range Interpretation [...] PATIEN TS. CBC W/PLT COUNT & AUTO [id number] 05:09:00 Test Item Value Reference Range Interpretation [...] PERCENT (BEAKER) (test code = 2809) POCT-GLUCOSE [id number] 22:08:00 Test Item Value Reference Range Interpretation Comments POC-GLUCOSE METER 263 mg/dL 70-110 H TESTED AT [place] [address] [facility] (test code = [facility] 1538) [address] POCT-GLUCOSE [id number] 17:20:00 Test Item Value Reference Range Interpretation Comments POC-GLUCOSE METER 233 mg/dL 70-110 H TESTED AT [place] [address] (BEAKER) (test code = [facility] 1538) [address] POCT-GLUCOSE [id number] 08:28:00 Test Item Value Reference Range Interpretation Comments POC-GLUCOSE METER 154 mg/dL 70-110 H TESTED AT [place] [address] [facility] (test code = [facility] 1538) [address] BASIC METABOLIC [id number] 06:41:00 Test Item Value Reference Range Interpretation [...] S NOT APPLICABLE FOR DIALYSIS PATIEN TS. [id number] 06:35:00 Test Item Value Reference Range Interpretation Comments PHOSPHORUS (BEAKER) (test code = 4.1 mg/dL 2.3-4.7 604) [id number] 06:35:00 Test Item Value Reference Range Interpretation Comments MAGNESIUM (BEAKER) (test code = 2.1 mg/dL 1.6-2.6 627) CALCIUM, [id number] 06:22:00 Test Item Value Reference Range Interpretation Comments CALCIUM IONIZED (BEAKER) (test 1.10 mmol/L 1.12-1.27 L code = 698) PH, BLOOD (BEAKER) (test code = 7.38 1810) CBC W/PLT COUNT & AUTO [id number] 06:04:00 Test Item Value Reference Range Interpretation [...] PERCENT (BEAKER) (test code = 280) POCT-GLUCOSE [id number] 03:44:00 Test Item Value Reference Range Interpretation Comments POC-GLUCOSE METER 220 mg/dL 70-110 H TESTED AT [facility] 6720 (BEAKER) (test code = JULIANO REYE[place] 1538) [address] POCT-GLUCOSE [id number] 18:27:00 Test Item Value Reference Range Interpretation Comments POC-GLUCOSE METER 256 mg/dL 70-110 H TESTED AT [facility] 6720 (BEAKER) (test code = [facility] 1538) [address] POCT-GLUCOSE [id number] 15:45:00 Test Item Value Reference Range Interpretation Comments POC-GLUCOSE METER 278 mg/dL 70-110 H TESTED AT [place] [address] ([facility]) (test code = [facility] 1538) [address] POCT-GLUCOSE [id number] 13:22:00 Test Item Value Reference Range Interpretation Comments POC-GLUCOSE METER 278 mg/dL 70-110 H TESTED AT [place] [address] ([facility]) (test code = [facility] 1538) [address] PLATELET AGGREGATION: FUNCTION [id number] 13:18:00 Test Item Value Reference Range Interpretation Comments WEAK ADP 66 % 60-91 RESULT([facility]) (test code = 2135) PLATELET FUNCTION 60-100% indicates SCREEN INTERP ([facility]) normal platelet (test code = 2173) function [id number] Rigoberto Duenas MD ([facility]) (test code = (electronic signature) 4092) PLATELET COUNT AGG 204 K/CU MM 150-450 ([facility]) (test code = 2656) POCT-GLUCOSE [id number] 08:27:00 Test Item Value Reference Range Interpretation Comments POC-GLUCOSE METER 189 mg/dL 70-110 H TESTED AT [place] [address] ([facility]) (test code = [facility] 1538) [address] CALCIUM, [id number] 06:12:00 Test Item Value Reference Range Interpretation Comments CALCIUM IONIZED (BEAKER) (test 1.07 mmol/L 1.12-1.27 L code = 698) PH, BLOOD (BEAKER) (test code = 7.36 1810) [id number] 05:43:00 Test Item Value Reference Range Interpretation Comments PHOSPHORUS (BEAKER) (test code = 3.6 mg/dL 2.3-4.7 604) [id number] 05:43:00 Test Item Value Reference Range Interpretation Comments MAGNESIUM (BEAKER) (test code = 2.1 mg/dL 1.6-2.6 627) BASIC METABOLIC [id number] 05:43:00 Test Item Value Reference Range Interpretation [...] PATIEN TS. CBC W/PLT COUNT & AUTO [id number] 05:05:00 Test Item Value Reference Range Interpretation [...] PERCENT (BEAKER) (test code = 2801) POCT-GLUCOSE [id number] 21:32:00 Test Item Value Reference Range Interpretation Comments POC-GLUCOSE METER 176 mg/dL 70-110 H TESTED AT [place] [address] [facility] (test code = JULIANO Osborne [facility] 1538) [id number] POCT-GLUCOSE [id number] 20:27:00 Test Item Value Reference Range Interpretation Comments POC-GLUCOSE METER 161 mg/dL 70-110 H TESTED AT [place] [address] [facility] (test code = JULIANO Osborne [facility] 1538) [address] POCT-GLUCOSE [id number] 18:23:00 Test Item Value Reference Range Interpretation Comments POC-GLUCOSE METER 185 mg/dL 70-110 H TESTED AT [place] [address] [facility] (test code = JULIANO Osborne [facility] 1538) [address] POCT-GLUCOSE [id number] 13:26:00 Test Item Value Reference Range Interpretation Comments POC-GLUCOSE METER 282 mg/dL 70-110 H TESTED AT [place] [address] [facility] (test code = JULIANO Osborne [facility] 1538) [address] URINE [id number] 10:12:00 Test Item Value Reference Range Interpretation Comments CULTURE (BEAKER) (test >100,000 col/mL skin code = 1095) todd POCT-GLUCOSE [id number] 09:01:00 Test Item Value Reference Range Interpretation Comments POC-GLUCOSE METER 268 mg/dL 70-110 H TESTED AT [facility] 6720 (BEAKER) (test code = [place] 1538) [address] CALCIUM, [id number] 05:39:00 Test Item Value Reference Range Interpretation Comments CALCIUM IONIZED (BEAKER) (test 0.84 mmol/L 1.12-1.27 L code = 698) PH, BLOOD (BEAKER) (test code = 7.35 1810) BASIC METABOLIC [id number] 05:07:00 Test Item Value Reference Range Interpretation [...] S NOT APPLICABLE FOR DIALYSIS PATIEN TS. [id number] 05:06:00 Test Item Value Reference Range Interpretation Comments PHOSPHORUS (BEAKER) (test code = 3.2 mg/dL 2.3-4.7 604) [id number] 05:06:00 Test Item Value Reference Range Interpretation Comments MAGNESIUM (BEAKER) (test code = 2.3 mg/dL 1.6-2.6 627) CBC W/PLT COUNT & AUTO [id number] 04:42:00 Test Item Value Reference Range Interpretation [...] = 2801) RHEUMATOID FACTOR AB, REFLEX TO [id number] 01:52:00 Test Item Value Reference Range Interpretation Comments RHEUMATOID FACTOR (ROBERT) (test Negative code = 573) POCT-GLUCOSE [id number] 21:57:00 Test Item Value Reference Range Interpretation Comments POC-GLUCOSE METER 105 mg/dL 70-110 TESTED AT [facility] 6720 (ROBERT) (test code = JULIANO Osborne [facility] 1538) [address] POCT-GLUCOSE [id number] 18:11:00 Test Item Value Reference Range Interpretation Comments POC-GLUCOSE METER 312 mg/dL 70-110 H Notified Dylon Hassan MD/TESTED (ROBERT) (test code = AT [facility] 6720 [facility] 1538) [facility] 7703 0 PET, CARDIAC PERFUSION MULTIPLE STUDIES, REST AND [id number] 16:28:00 Reason for exam:->pvcs, known cadFINAL REPORT PROCEDURE: Rest/Stress MYOCARDIAL PERFUSION PET with regadenoson\\XA9\\ CPT CODE: 92950 INDICATION: Defined extent and severity of known [...] is 23%. LVEF at stress is 36%. Aviation Project Manager CT images revealed a right [...] Whaley Verified Date/Time: 05/15/2017 16:28:12 Reading Location: [address] ReadingRoom RAD, CHEST, 1 VIEW, NON [id number] 15:56:00Reason for exam:->SOBShould this be performed at the bedside?->YesFINAL REPORT Comparison: 05/14/2017 TECHNIQUE: Single view of the chest FINDINGS: There is a small right pleural effusion with nonspecific airspace disease. This is unchanged. Left lung is grossly clear. Cardiac silhouette is enlarged. IMPRESSION: 1. No acute cardiopulmonary disease. Signed: Sixto Monk [facility]'Seport Verified Date/Time: 05/15/2017 15:56:39 Reading Location: [facility] Rad iology Reading Room POCT-GLUCOSE [id number] 12:54:00 Test Item Value Reference Range Interpretation Comments POC-GLUCOSE METER 308 mg/dL 70-110 H Notified Dylon Hassan MD/TESTED (ROBERT) (test code = AT [facility] 6720 [facility] 1538) [facility] 7703 0 U/S, RENAL WITH [id number] 11:04:00Reason for exam:->tracy, htnShould this be performed [...] Rut Verified Date/Time: 05/15/2017 11:04:01 Reading Location: [place] [id number] Ultrasound Reading Room ANA TITER AND [id number] 10:57:00 Test Item Value Reference Range Interpretation Comments ROGER TITER (BEAKER) (test code = :160 1541) ROGER PATTERN (BEAKER) (test code = Speckled 1781) ANTI-NUCLEAR ANTIBODY (ROGER)2017-05-15 10:56:00 Test Item Value Reference Range Interpretation Comments ANTI-NUCLEAR ANTIBODY (ROGER) (BEAKER) Positive Negative A (test code = 418) CALCIUM, [id number] 06:00:00 Test Item Value Reference Range Interpretation Comments CALCIUM IONIZED (BEAKER) (test 1.07 mmol/L 1.12-1.27 L code = 698) PH, BLOOD (BEAKER) (test code = 7.28 1810) HEPATITIS PANEL, [id number] 05:01:00 Test Item Value Reference Range Interpretation Comments HEPATITIS A IGM ANTIBODY (BEAKER) Nonreactive Nonreactive (test code = 498) HEPATITIS B CORE IGM ANTIBODY Nonreactive Nonreactive (BEAKER) (test code = 645) HEPATITIS C ANTIBODY (BEAKER) Nonreactive Nonreactive (test code = 367) HEPATITIS B SURFACE ANTIGEN (2) Nonreactive Nonreactive (BEAKER) (test code = 2585) BASIC METABOLIC [id number] 04:48:00 Test Item Value Reference Range Interpretation [...] NOT APPLICABLE FOR DIALYSIS PATIEN TS. URIC [id number] 04:41:00 Test Item Value Reference Range Interpretation Comments URIC ACID (BEAKER) (test code = 10.3 mg/dL 2.6-7.2 H 773) [id number] 04:41:00 Test Item Value Reference Range Interpretation Comments MAGNESIUM (BEAKER) (test code = 2.0 mg/dL 1.6-2.6 627) [id number] 04:41:00 Test Item Value Reference Range Interpretation Comments PHOSPHORUS (BEAKER) (test code = 4.2 mg/dL 2.3-4.7 604) COMPLEMENT COMPONENT [id number] 04:38:00 Test Item Value Reference Range Interpretation Comments C4 COMPLEMENT (BEAKER) (test code = 28 mg/dL 15-57 394) COMPLEMENT COMPONENT [id number] 04:38:00 Test Item Value Reference Range Interpretation Comments C3 COMPLEMENT (BEAKER) (test code = 103 mg/dL 82-193 393) CBC W/PLT COUNT & AUTO [id number] 04:22:00 Test Item Value Reference Range Interpretation [...] PERCENT (BEAKER) (test code = 2801) POCT-GLUCOSE [id number] 21:46:00 Test Item Value Reference Range Interpretation Comments POC-GLUCOSE METER 173 mg/dL 70-110 H TESTED [facility] 6720 [facility] (test code = JULIANO [place] 1538) [address] POCT-GLUCOSE [id number] 21:46:00 Test Item Value Reference Range Interpretation Comments POC-GLUCOSE METER 154 mg/dL 70-110 H TESTED AT [facility] 6720 (BEAKER) (test code = JULIANO [place] 1538) [address] POCT-GLUCOSE [id number] 18:17:00 Test Item Value Reference Range Interpretation Comments POC-GLUCOSE METER 175 mg/dL 70-110 H TESTED AT [facility] 6720 ([facility]) (test code = JULIANO Osborne [facility] 1538) [address] RAD, CHEST, 1 VIEW, NON [id number] 14:56:00Reason for exam:->SOBShould this be performed at the bedside?->YesFINAL REPORT INDICATION: SOB COMPARISON: May 13, 2017 TECHNIQUE: Chest radiograph, single view, portable technique. FINDINGS / IMPRESSION: Enlarged heart shadow, small rightpleural effusion, and pulmonary venous congestion, again demonstrated. No pneumothorax or consolidation. Osseous structures unremarkable. Signed: Thania Dwyer Verified Date/Time: 05/14/2017 14:56:58 Reading Location: [facility] Mammo Reading Room POCT-GLUCOSE [id number] 12:18:00 Test Item Value Reference Range Interpretation Comments POC-GLUCOSE METER 313 mg/dL 70-110 H TESTED AT [facility] 6720 ([facility]) (test code = JULIANO Osborne [facility] 1538) [address] HIV-1 ANTIGEN WITH HIV-1/2 [id number] 12:07:00 Test Item Value Reference Range Interpretation Comments HIV-1 ANTIGEN WITH HIV 1\\T\\2 Nonreactive Nonreactive [facility]TIBODY (2) [facility] (test code = 2586) CALCIUM, [id number] 06:37:00 Test Item Value Reference Range Interpretation Comments CALCIUM IONIZED (BEAKER) (test 1.08 mmol/L 1.12-1.27 L code = 698) PH, BLOOD (BEAKER) (test code = 7.25 1810) BASIC METABOLIC [id number] 06:26:00 Test Item Value Reference Range Interpretation [...] pg/mL 0-100 H (test code = 700) [id number] 06:25:00 Test Item Value Reference Range Interpretation Comments PHOSPHORUS (BEAKER) (test code = 5.7 mg/dL 2.3-4.7 H 604) [id number] 06:25:00 Test Item Value Reference Range Interpretation Comments MAGNESIUM (BEAKER) (test code = 1.5 mg/dL 1.6-2.6 L 627) CBC W/PLT COUNT & AUTO [id number] 06:07:00 Test Item Value Reference Range Interpretation [...] PERCENT (BEAKER) (test code = 2801) POCT-GLUCOSE [id number] 22:38:00 Test Item Value Reference Range Interpretation Comments POC-GLUCOSE METER 262 mg/dL 70-110 H TESTED AT [facility] 6720 (BEAKER) (test code = MATTHIASAMANDA Osborne [facility] 1538) [address] PROTEIN, RANDOM [id number] 22:18:00 Test Item Value Reference Range Interpretation Comments PROTEIN, URINE (BEAKER) (test code 641 mg/dL 0-14 H = 1569) CREATININE, RANDOM [id number] 22:07:00 Test Item Value Reference Range Interpretation Comments CREATININE URINE (BEAKER) (test 124.9 mg/dL code = 375) Reference Range: No NormalsURINALYSIS W/ [id number] 22:03:00 Test Item Value Reference Range Interpretation [...] SOURCE(BEAKER) (test code = Urine, Voided 2795) [id number] 19:49:00 Test Item Value Reference Range Interpretation Comments SODIUM (BEAKER) (test 136 meq/L 136-145 code = 381) POTASSIUM (BEAKER) 5.1 meq/L 3.5-5.1 Specimen slightly (test code = 379) hemolyzed CHLORIDE (BEAKER) 104 meq/L 98-107 (test code = 382) CO2 (BEAKER) (test 25 meq/L 22-29 code = 355) Call if K > 5POCT-GLUCOSE [id number] 11:37:00 Test Item Value Reference Range Interpretation Comments POC-GLUCOSE METER 293 mg/dL 70-110 H TESTED AT [facility] 6720 (BEAKER) (test code = JULIANO [place] 1538) [address] RAD, CHEST, 1 VIEW, NON [id number] 10:22:00Reason for exam:->SOBShould this be performed at the bedside?->YesFINAL REPORT Chest one view Discussion: There is cardiomegaly and interstitial congestion. A small right-sided effusion is noted. No pneumothorax. IMPRESSIONS: Suspected CHF. Signed: Jeannette Nava Verified Date/Time: 05/13/2017 10:22:34 Reading Location: [facility] Radiology Reading Room POCT-GLUCOSE METER 2017-05-13 08:34:00 Test Item Value Reference Range Interpretation Comments POC-GLUCOSE METER 178 mg/dL 70-110 H TESTED AT [place] [address] (BEAKER) (test code = JULIANO Osborne [facility] 1538) [address] POCT-GLUCOSE [id number] 06:53:00 Test Item Value Reference Range Interpretation Comments POC-GLUCOSE METER 167 mg/dL 70-110 H TESTED AT [place] [address] (BEAKER) (test code = MATTHIASDC Dylon [facility] 1538) [address] [id number] 04:48:00 Test Item Value Reference Range Interpretation Comments BLOOD UREA NITROGEN (BEAKER) (test 36 mg/dL 7-21 H code = 354) [id number] 04:48:00 Test Item Value Reference Range Interpretation Comments SODIUM (BEAKER) (test code = 381) 139 meq/L 136-145 POTASSIUM (BEAKER) (test code = 5.2 meq/L 3.5-5.1 H 379) CHLORIDE (BEAKER) (test code = 382) 109 meq/L 98-107 H CO2 (BEAKER) (test code = 355) 23 meq/L 22-29 [id number] 04:48:00 Test Item Value Reference Range Interpretation [...] WBC 0-0 (BEAKER) (test code = 413) [id number] 23:29:00 Test Item Value Reference Range Interpretation Comments ACTIVATED CLOTTING TIME 136 sec TEST ED AT [place] [address] ([facility]) (test code = JULIANO RUTH [facility]) [address] [id number] 20:13:00 Test Item Value Reference Range Interpretation Comments ACTIVATED CLOTTING TIME 175 sec TEST ED AT [place] [address] ([facility]) (test code = JULIANO [place] [address]) [address] [id number] 18:36:00 Test Item Value Reference Range Interpretation Comments ACTIVATED CLOTTING TIME 202 sec TEST ED AT [place] [address] ([facility]) (test code = [place]ULIANO [place] 441) [address] [id number] 18:03:00 Test Item Value Reference Range Interpretation Comments ACTIVATED CLOTTING TIME 208 sec TEST ED AT [facility] 6720 (BEAKER) (test code = [place]ULIANO [place] 441) [address] BASIC METABOLIC [id number] 11:57:00 Test Item Value Reference Range Interpretation [...] NOT APPLICABLE FOR DIALYSIS PATIEN TS. PROTHROMBIN [id number] 11:15:00 Test Item Value Reference Range Interpretation [...] if on CoumadinCBC W/PLT COUNT & AUTO [id number] 11:01:00 Test Item Value Reference Range Interpretation [...] PERCENT (BEAKER) (test code = 2801) POCT-GLUCOSE [id number] 12:35:00 Test Item Value Reference Range Interpretation Comments POC-GLUCOSE METER 249 mg/dL 70-110 H TESTED AT [facility] 6720 (BEAKER) (test code = JULIANO REYEZ 1538) [address] POCT-GLUCOSE [id number] 09:10:00 Test Item Value Reference Range Interpretation Comments POC-GLUCOSE METER 155 mg/dL 70-110 H TESTED AT [facility] 6720 (BEAKER) (test code = JULIANO Osborne [place] 1538) [address] BASIC METABOLIC [id number] 05:39:00 Test Item Value Reference Range Interpretation [...] S NOT APPLICABLE FOR DIALYSIS PATIEN TS. [id number] 05:27:00 Test Item Value Reference Range Interpretation Comments PHOSPHORUS (BEAKER) (test code = 5.0 mg/dL 2.3-4.7 H 604) [id number] 05:27:00 Test Item Value Reference Range Interpretation Comments MAGNESIUM (BEAKER) (test code = 1.6 mg/dL 1.6-2.6 627) POCT-GLUCOSE [id number] 05:25:00 Test Item Value Reference Range Interpretation Comments POC-GLUCOSE METER 144 mg/dL 70-110 H TESTED AT [facility] 6720 (BEAKER) (test code = JULIANO Osborne [facility] 1538) [address] PROTHROMBIN [id number] 04:58:00 Test Item Value Reference Range Interpretation Comments PROTIME (BEAKER) (test code = 14.2 seconds 11.7-14.7 759) INR (BEAKER) (test code = 370) 1.1 <=5.9 RECOMMENDED COUMADIN/WARFARIN INR THERAPY RANGESSTANDARD DOSE: 2.0 - 3.0 Includes: PROPHYLAXIS forvenous thrombosis, systemic embolization; TREATMENT for venous thrombosis and/or pulmonary embolus.HIGH RISK: Target INR is 2.5-3.5 for patients with mechanical heart valves.POCT-GLUCOSE [id number] 23:55:00 Test Item Value Reference Range Interpretation Comments POC-GLUCOSE METER 86 mg/dL 70-110 TESTED AT [place] [address] ([facility]) (test code = [facility] [address] 1538) B-TYPE NATRIURETIC FACTOR (BNP)2017-04-22 18:13:00 Test Item Value Reference Range Interpretation Comments B-TYPE NATRIURETIC PEPTIDE 1203 pg/mL 0-100 H ([facility]) (test code = 700) POCT-GLUCOSE [id number] 17:36:00 Test Item Value Reference Range Interpretation Comments POC-GLUCOSE METER 259 mg/dL 70-110 H TESTED AT [place] [address] ([facility]) (test code = [facility] 1538) [address] HEMOGLOBIN [id number] 14:24:00 Test Item Value Reference Range Interpretation Comments HEMOGLOBIN A1C ([facility]) (test code = 10.5 % 4.3-6.1 H 368) POCT-GLUCOSE [id number] 12:34:00 Test Item Value Reference Range Interpretation Comments POC-GLUCOSE METER 207 mg/dL 70-110 H TESTED AT [place] [address] ([facility]) (test code = [facility] 1538) [address] [id number] 07:53:00 Test Item Value Reference Range Interpretation Comments PHOSPHORUS (BEAKER) (test code = 3.9 mg/dL 2.3-4.7 604) [id number] 07:53:00 Test Item Value Reference Range Interpretation Comments MAGNESIUM (BEAKER) (test code = 1.6 mg/dL 1.6-2.6 627) BASIC METABOLIC [id number] 07:53:00 Test Item Value Reference Range Interpretation [...] NOT APPLICABLE FOR DIALYSIS PATIEN TS. TROPONIN [id number] 07:29:00 Test Item Value Reference Range Interpretation [...] acidosis, acute neurological disease, and persistent tachyarrhythmia.PROTHROMBIN [id number] 07:01:00 Test Item Value Reference Range Interpretation Comments PROTIME (BEAKER) (test code = 13.8 seconds 11.7-14.7 759) INR (BEAKER) (test code = 370) 1.1 <=5.9 RECOMMENDED COUMADIN/WARFARIN INR THERAPY RANGESSTANDARD DOSE: 2.0 - 3.0 Includes: PROPHYLAXIS forvenous thrombosis, systemic embolization; TREATMENT for venous thrombosis and/or pulmonary embolus.HIGH RISK: Target INR is 2.5-3.5 for patients with mechanical heart valves.POCT-GLUCOSE [id number] 06:28:00 Test Item Value Reference Range Interpretation Comments POC-GLUCOSE METER 198 mg/dL 70-110 H TESTED AT [facility] 6720 ([facility]) (test code = JULIANO [place] 1538) [address] CREATINE KINASE (CK), TOTAL AND [id number] 00:49:00 Test Item Value Reference Range Interpretation Comments CREATINE KINASE TOTAL ([facility]) 69 U/L 29-200 (test code = 380) CREATINE KINASE-MB ([facility]) (test 4.3 ng/mL 0.0-6.6 code = 750) CREATINE KINASE-MB INDEX ([facility]) 6.2 % (test code = 395) CK-MB Reference Range:<6.7 Normal6.7-10.0 Borderline>10.0 AbnormalTROPONIN [id number] 00:49:00 Test Item Value Reference Range Interpretation Comments TROPONIN I ([facility]) (test code = 0.05 ng/mL 0.00-0.03 [...] acidosis, acute neurological disease, and persistent tachyarrhythmia.POCT-GLUCOSE [id number] 20:44:00 Test Item Value Reference Range Interpretation Comments POC-GLUCOSE METER 269 mg/dL 70-110 H TESTED AT [facility] 6720 ([facility]) (test code = JULIANO Osborne [place] 1538) [address]
--- NOTE | 2021-04-09 22:09 | RAD REPORT ---
EXAM DESCRIPTION: RAD - Chest Single View - 04/09/2021 9:45 pm CLINICAL HISTORY: AMS Chest pain. COMPARISON: Chest Single View dated 03/25/2021; Chest Single View dated 02/24/2021; Chest Single Vie w dated 01/07/2021; Chest Single View dated 01/03/2021 FINDINGS: Portable technique limits examination quality. Mild interstitial pulmonary edema seen. Moderate right pleural effusion is present. The heart is mode rately enlarged. Sternotomy wires are present. Left-sided venous catheter remains in place. IMPRESSION: Mild to moderate CHF versus volume overload pattern.
[2021-04-09 22:20] LABS: Protime INR 1.38
[2021-04-09 22:22] LABS: Absolute Lymphocytes (CBC) 1.7 K/uL (0.7-4.9); Hematocrit 40.8 % (36.0-45.0); Lymphocytes % 10.9 % (15.3-44.8); MPV 7.1 fL (7.6-11.3); RBC Red Blood Cell Count 4.69 M/uL (3.86-4.86)
[2021-04-09 22:57] LABS: SARS-COV-2 RT PCR NEGATIVE (NEGATIVE)
[2021-04-09 23:21] LABS: Albumin 2.1 g/dL (3.4-5.0); Bilirubin Direct 0.2 mg/dL (0-0.2); Bilirubin Total 0.5 mg/dL (0.2-1.0); Magnesium 1.5 mg/dL (1.8-2.4); Potassium 5.2 mmol/L (3.5-5.1); Protein, Total 6.7 g/dL (6.4-8.2)
[2021-04-09 23:25] LABS: Troponin High Sensitivity 65.2 pg/mL (<58.9)
--- NOTE | 2021-04-09 23:51 | ER ---
Nurse's Notes [facility] Name: Christy Priest Age: 66 yrs Sex: Female : 1955 Arrival Date: 04/09/2021 Time: 17:54 Bed 15 Private MD: Diagnosis: Weakness;End stage renal disease;Congestive heart fairlue - Volume overload Presentation: 04/09 17:54 Chief complaint: EMS states: family called because she wasn't making any sense, she was iw A\T\OX4 on scene, has not had dialysis since before [place]. Coronavirus screen: At this time, the client does not indicate any symptoms associated with coronavirus-19. Ebola Screen: Patient negative for fever greater than or equal to 101.5 degrees Fahrenheit, and additional compatible Ebola Virus Disease symptoms Patient denies exposure to infectious person. Patient denies travel to an Ebola-affected area in the 21 days before illness onset. No symptoms or risks identified at this time. 17:54 Method Of Arrival: EMS: [facility] iw 17:54 Acuity: DENNY 3 iw 04/10 01:48 Initial Sepsis Screen: Does the patient meet any 2 criteria? No. Patient's initial kd3 sepsis screen is negative. Does the patient have a suspected source of infection? No. Patient's initial sepsis screen is negative. Risk Assessment: Do you want to hurt yourself or someone else? Patient reports no desire to harm self or others. Onset of symptoms was April 10, 2021. Triage Assessment: 01:44 General: Appears in no apparent distress. ill, Behavior is calm, cooperative. Pain: kd3 Complains of pain in right leg and left leg. Neuro: No deficits noted. Level of Consciousness is awake, alert, obeys commands, Oriented to person, place, time, situation, Appropriate for age. Cardiovascular: No deficits noted. Capillary refill < 3 seconds Patient's skin is warm and dry. Respiratory: Airway is patent Respiratory effort is even, unlabored, Breath sounds with wheezes. GI: Bowel sounds present X 4 quads. : Urine is clear, Last void was April 10, 2021. Derm:. Musculoskeletal:. Historical: - Allergies: 04/09 17:55 Nitroglycerin; iw 17:55 tramadol; iw 17:55 Vancomycin; iw - PMHx: 17:55 diabetes mellitus; Dialysis; Hypertensive disorder; iw - Immunization history:: Client reports receiving the 2nd dose of the Covid vaccine. - Social history:: Smoking status: unknown. Screenin/11 01:44 Abuse screen: Denies threats or abuse. Denies injuries from another. Nutritional kd3 screening: No deficits noted. Tuberculosis screening: No symptoms or risk factors identified. Fall Risk Fall in past 12 months (25 points). IV access (20 points). Gait- Weak (10 pts.). Assessment: 01:47 General: Appears in no apparent distress. ill, Behavior is calm, cooperative, kd3 appropriate for age. Pain: Complains of pain in right leg and left leg. Neuro: No deficits noted. Level of Consciousness is awake, alert, obeys commands, Oriented to person, place, time, situation, Appropriate for age. Cardiovascular: Denies chest pain, fatigue, lightheadedness, nausea, shortness of breath. Respiratory: No deficits noted. Airway is patent Respiratory effort is even, unlabored. GI: No deficits noted. : No deficits noted. EENT: No deficits noted. Derm: dry skin. edema in lower extremities. Vital Signs: 04/09 17:55 BP 134 / 66; Pulse 76; Resp 19; Temp 99.7; Pulse Ox 97% on R/A; iw 23:57 BP 150 / 71; Pulse 83; Resp 14; Pulse Ox 98% on R/A; oe 04/10 01:49 BP 150 / 77; Pulse 74; Resp 18; Pulse Ox 98% on R/A; Pain /10; kd3 03:55 BP 138 / 71; Pulse 78; Resp 16; Pulse Ox 98% on R/A; kd3 06:31 BP 137 / 62; Pulse 75; Resp 16; Pulse Ox 98% on R/A; kd3 ED Course: 04/09 17:54 Patient arrived in ED. iw 17:55 Triage completed. iw 21:25 Quan Hebert NP is PHCP. pm1 21:25 Alessio Parry MD is Attending Physician. pm1 21:30 Jud Mayes, GUILHERME is Primary Nurse. bb 21:45 XRAY Chest (1 view) In Process Unspecified. EDMS 22:05 CT Head Brain wo Cont In Process Unspecified. EDMS 22:05 Inserted saline lock: 20 gauge in right forearm, using aseptic technique. Blood oe collected. 23:42 Jaun Parker PA is Hospitalizing Provider. pm1 04/10 01:44 No provider procedures requiring assistance completed. kd3 01:44 Patient has correct armband on for positive identification. Bed in low position. Call kd3 light in reach. monitoring manager on. Pulse ox on. NIBP on. 01:49 Arm band placed on right wrist. kd3 02:30 Primary Nurse role handed off by Jud Mayes RN kd3 02:30 Georgia Omer, RN is Primary Nurse. kd3 07:20 Patient admitted, IV remains in place. jg9 Administered Medications: 01:08 Not Given (Patient Refused): Kayexalate (polystyrene) 45 grams PO once kd3 01:36 Drug: fentaNYL (PF) 25 mcg Route: IVP; Site: right forearm; kd3 01:36 Drug: Zofran (Ondansetron) 4 mg Route: IVP; Site: right forearm; kd3 Point of Care Testing: Blood Glucose: 04/09 17:55 Blood Glucose: 83 mg/dL; Ranges: Outcome: 23:51 Decision to Hospitalize by Provider. pm1 04/10 07:19 Admitted to ER Hold. Please see [facility] for further documentation. jg9 07:19 Condition: stable jg9 17:21 Patient left the ED. jg9 Signatures: Dispatcher [employer] EDMS Jud Mayes RN RN bb Williams, Irene, RN RN iw Quan Hebert, RADHA INSURANCE FOLLOW UP REP pm1 Derrick Caraballo oe Georgia Omer RN RN kd3 Mariela Paul RN RN jg9
--- NOTE | 2021-04-09 23:52 | EDPHYS ---
Physician Documentation [facility] Name: Christy Priest Age: 66 yrs Sex: Female : 1955 Arrival Date: 04/09/2021 Time: 17:54 Bed 15 Private MD: ED Physician Alessio Parry HPI: 04/09 21:49 This 66 yrs old Female presents to ER via EMS with complaints of General Weakness, pm1 Edema. 21:49 The patient presents to the emergency department with weakness of the entire body, pm1 generalized weakness, altered mental status per EMS report from family. Onset: The symptoms/episode began/occurred 2 day(s) ago. Context: occurred at home. Associated signs and symptoms: Pertinent positives: pedal edema. Severity of symptoms: in the emergency department the symptoms are worse. Patient's baseline: Neuro: alert and fully oriented, Speech: normal. The patient has experienced similar episodes in the past, several times, Patient has not had dialysis since being discharged from the hospital last year. Historical: - Allergies: 17:55 Nitroglycerin; iw 17:55 tramadol; iw 17:55 Vancomycin; iw - PMHx: 17:55 diabetes mellitus; Dialysis; Hypertensive disorder; iw - Immunization history:: Client reports receiving the 2nd dose of the Covid vaccine. - Social history:: Smoking status: unknown. ROS: 21:49 Constitutional: Negative for fever, chills, and weight loss, Respiratory: Negative for pm1 shortness of breath, cough, wheezing, and pleuritic chest pain, Abdomen/GI: Negative for abdominal pain, nausea, vomiting, diarrhea, and constipation, Back: Negative for injury and pain, MS/Extremity: Negative for injury and deformity, Skin: Negative for injury, rash, and discoloration. 21:49 Cardiovascular: Positive for edema, Negative for chest pain, palpitations. 21:49 Neuro: Positive for weakness. 21:49 All other systems are negative. Exam: 21:49 Constitutional: This is a well developed, well nourished patient who is awake, alert, pm1 and in no acute distress. Head/Face: Normocephalic, atraumatic. 21:49 Skin: Warm, dry with normal turgor. Normal color with no rashes, no lesions, and no evidence of cellulitis. MS/ Extremity: Pulses equal, no cyanosis. Neurovascular intact. Full, normal range of motion. 21:49 Cardiovascular: Exam negative for acute changes, Rate: normal, Rhythm: regular, Pulses: no pulse deficits are appreciated, Heart sounds: normal. 21:49 Respiratory: Exam negative for acute changes, respiratory distress, shortness of breath, Breath sounds: are clear throughout. 21:49 Abdomen/GI: Inspection: abdomen appears normal, Palpation: abdomen is soft and non-tender, in all quadrants. 21:49 Neuro: Exam negative for acute changes, Orientation: is normal, Mentation: is normal, Motor: is normal, moves all fours. Vital Signs: 17:55 BP 134 / 66; Pulse 76; Resp 19; Temp 99.7; Pulse Ox 97% on R/A; iw 23:57 BP 150 / 71; Pulse 83; Resp 14; Pulse Ox 98% on R/A; oe 04/10 01:49 BP 150 / 77; Pulse 74; Resp 18; Pulse Ox 98% on R/A; Pain 10; kd3 03:55 BP 138 / 71; Pulse 78; Resp 16; Pulse Ox 98% on R/A; kd3 06:31 BP 137 / 62; Pulse 75; Resp 16; Pulse Ox 98% on R/A; kd3 MDM: 04/09 21:25 Patient medically screened. pm1 23:41 Counseling: I had a detailed discussion with the patient and/or guardian regarding: the pm1 historical points, exam findings, and any diagnostic results supporting the discharge/admit diagnosis, lab results, radiology results, the need for further work-up and treatment in the hospital. 23:41 Data reviewed: vital signs. Data interpreted: Pulse oximetry: on room air is 97 %. pm1 Interpretation: normal. 23:41 Physician consultation: Jaun LEWIS was contacted at 23:41, regarding admission, pm1 patient's condition, and will see patient in ED, shortly. 04/09 21:25 Order name: Basic Metabolic Panel; Complete Time: 23:29 pm1 04/09 21:25 Order name: CBC with Diff; Complete Time: 00:45 pm1 04/09 21:25 Order name: LFT's; Complete Time: 23:29 pm1 04/09 21:25 Order name: Magnesium; Complete Time: 23:29 pm1 04/09 21:25 Order name: NT PRO-BNP; Complete Time: 23:29 pm1 04/09 21:25 Order name: PT-INR; Complete Time: 22:31 pm1 04/09 21:25 Order name: XRAY Chest (1 view); Complete Time: 22:14 pm1 04/09 21:25 Order name: CT Head Brain wo Cont pm1 04/09 21:48 Order name: COVID-19/FLU A+B (Document "Date of Onset" if Symptomatic); Complete Time: pm1 23:21 04/09 22:10 Order name: Troponin High Sensitivity; Complete Time: 23:29 EDMS 04/09 22:28 Order name: Manual Differential; Complete Time: 00:45 EDMS 04/10 11:46 Order name: Comprehensive Metabolic Panel EDMS 04/10 11:48 Order name: CBC with Automated Diff EDMS 04/09 21:25 Order name: EKG; Complete Time: 21:26 pm1 04/09 21:25 Order name: Cardiac monitoring; Complete Time: 00:13 pm1 04/09 21:25 Order name: EKG - Nurse/Tech; Complete Time: 01:52 pm1 04/09 21:25 Order name: IV Saline Lock; Complete Time: 01:51 pm1 04/09 21:25 Order name: Labs collected and sent; Complete Time: 00:13 pm1 04/09 21:25 Order name: O2 Per Protocol; Complete Time: 00:13 pm1 04/09 21:25 Order name: O2 Sat Monitoring; Complete Time: 00:13 pm1 04/10 01:54 Order name: CONS Physician Consult EDMS Administered Medications: 04/10 01:08 Not Given (Patient Refused): Kayexalate (polystyrene) 45 grams PO once kd3 01:36 Drug: fentaNYL (PF) 25 mcg Route: IVP; Site: right forearm; kd3 01:36 Drug: Zofran (Ondansetron) 4 mg Route: IVP; Site: right forearm; kd3 Point of Care Testing: Blood Glucose: 04/09 17:55 Blood Glucose: 83 mg/dL; iw Ranges: Critical Glucose Levels:Adult <50 mg/dl or >400 mg/dl <40 mg/dl or >180 mg/dl Disposition: 04/11 10:09 Co-signature as Attending Physician, Alessio Parry MD I agree with the assessment and carlos plan of care. Disposition Summary: 04/09/21 23:51 Hospitalization Ordered Hospitalization Status: Inpatient Admission pm1 Provider: Jaun Parker pm1 Condition: Stable pm1 Problem: new pm1 Symptoms: have improved pm1 Bed/Room Type: Standard pm1 Location: Telemetry/MedSurg (Inpatient)(04/10/21 15:37) bd Room Assignment: 215(04/10/21 15:37) bd Diagnosis - Weakness pm1 - End stage renal disease pm1 - Congestive heart fairlue - Volume overload pm1 Forms: - Medication Reconciliation Form pm1 - SBAR form pm1 Signatures: Dispatcher [employer] EDMS Svetlana Iniguez Corey, MD MD cha Williams, Irene, Kaci Mcmanus RN, GUILHERME RN Quan Thompson, WINDER TENDER WINDER TENDER pm1 Georgia Omer RN RN kd3 Corrections: (The following items were deleted from the chart) 04/09 22:10 21:26 TROPONIN (EMERG DEPT USE ONLY)+C.LAB.BRZ ordered. EDPR EDMS 04/10 01:41 04/09 23:51 Telemetry/MedSurg (Inpatient) pm1 cg 04/10 01:41 04/09 23:51 pm1 cg 04/10 15:37 01:41 [facility] ER HOLD cg bd 15:37 01:41 ERHOLD- cg bd
[2021-04-10 00:35] LABS: Blood Morphology Comment NOT SEEN (NOT SEEN); Platelet Estimate ADEQ
[2021-04-10] MEDS ORDERED: MORPHINE 2 MG/ML SYR ONE (00:56)
[2021-04-10] MEDS ORDERED: SOD POLYSTYREN SUL 15 GM/60 ML UCUP ONE ×2 (00:57→01:01)
[2021-04-10] MEDS ORDERED: FENTANYL CITR 100 MCG/2 ML ONE (01:34)
[2021-04-10] MEDS ORDERED: ONDANSETRON 4 MG/2 ML VIAL ONE (01:35)
--- NOTE | 2021-04-10 04:19 | P.HP ---
Certification for Inpatient Patient admitted to: Inpatient With expected LOS: <2 Midnights Patient will require the following post-hospital care: None Practitioner: I am a practitioner with admitting privileges, knowledge of patient current condition, hospital course, and medical plan of care. Services: Services provided to patient in accordance with Admission requirements found in Title 42 Section 412.3 of the Code of Federal Regulations Patient History Date of Service: 04/10/21 Reason for admission: missed dialysis History of Present Illness: Ms. Priest is a 66 yo F with ESRD on HD MWF, CAD s/p CAB, HTN, DM, COPD who presents with 2 days of increasing malaise, weakness and shortness of breath. She has audible wheezes. She has missed dialysis for the past 2 weeks because she has had flu like symptoms. Flu and COVID are negative today. WBC 15.1 Na 133 K 5.2 BUN 41 Cr 3.84 GFR 12 Mg 1.5 alk phos 162 BNP [id number] trop 0.065 Allergies morphine Allergy (Severe, Verified 10/11/20 04:32) Anaphylaxis vancomycin Allergy (Intermediate, Verified 10/11/20 04:32) Shortness of breath basil Allergy (Verified 10/11/20 04:32) Nausea/Vomiting tramadol Allergy (Verified 10/11/20 04:32) Nausea/Vomiting trazodone Allergy (Verified 10/11/20 04:32) Nausea/Vomiting nitroglycerin Adverse Reaction (Mild, Verified 10/11/20 04:32) Nausea/Vomiting Home Medications: Aspirin 81 mg PO DAILY 06/13/20 Clopidogrel Bisulfate [Plavix*] 75 mg PO DAILY 06/13/20 Furosemide [Lasix*] 40 mg PO BID 06/14/20 Gabapentin [Neurontin*] 100 mg PO BID 06/14/20 Dicyclomine HCl 1 tab PO Q6H PRN 12/06/20 Sevelamer Carbonate [Renvela*] 2 tab PO TIDWM 12/06/20 Sertraline [Zoloft*] 50 mg PO DAILY #30 tab 02/26/21 Thiamine HCl [Vitamin B-1*] 100 mg PO DAILY #30 tablet 02/26/21 Atorvastatin Calcium [Lipitor] 40 mg OP BEDTIME 03/26/21 Isosorbide Dinitrate 1 tab PO DAILY 03/26/21 Lisinopril [Zestril] 20 mg PO DAILY 03/26/21 Medihoney [Medihoney Woundcare Gel*] 1 appl TOP DAILY #1 tube 03/27/21 Metoprolol Tartrate 25 mg PO BID #60 tablet 03/27/21 Sertraline [Zoloft] 100 mg PO DAILY #30 tab 03/27/21 - Past Medical/Surgical History Diabetic: Yes -: COPD -: Hypertension -: CAD, CABG x4 vessels (August 2017) -: Diabetes mellitus type 2, insulin-dependent -: Chronic combined systolic/diastolic CHF -: Uterine cancer status post hysterectomy -: Chronic renal disease, stage IV -: TB as a child - Negative 2017 -: Hyperlipidemia -: Iron deficiency anemia -: WEST -: ESRD on HD -: Rectal surgery -: Hysterectomy -: Cholecystectomy -: Gastric surgery -: Appendectomy -: CABG x4 vessel -: RLE Femoral popliteal bypass -: Left great toe amputation Psychosocial/ Personal History: The patient is a . Her son lives with her. She has 3 children. - Family History Brother -: Heart disease, Hypertension, Cancer Notes: Father -: Heart disease, Lung disease, Cancer Notes: - Prostate surgery - Hemorrhage Mother -: GI disease Notes: Sister -: Heart disease Notes: - Respiratory failure - Social History Smoking Status: Unknown if ever smoked Alcohol use: No CD- Drugs: No Caffeine use: Yes Place of Residence: Home Review of Systems 10-point ROS is otherwise unremarkable General: Malaise Eyes: Unremarkable ENT: Unremarkable Respiratory: Shortness of Breath, Wheezing Cardiovascular: Unremarkable Gastrointestinal: Unremarkable Genitourinary: Unremarkable Musculoskeletal: Unremarkable Integumentary: Unremarkable Neurological: Unremarkable Lymphatics: Unremarkable Physical Examination - Physical Exam General: In no apparent distress HEENT: Atraumatic, PERRLA, Mucous membr. moist/pink, EOMI, Sclerae nonicteric Neck: Supple, 2+ carotid pulse no bruit, No LAD, Without JVD or thyroid abnormality Respiratory: Diminished, Crackles/rales Cardiovascular: No edema, Regular rate/rhythm, Normal S1 S2 Gastrointestinal: Normal bowel sounds, No tenderness Musculoskeletal: No tenderness Integumentary: Skin breakdown Neurological: Normal speech, Normal strength at 5/5 x4 extr, Normal tone Lymphatics: No axilla or inguinal lymphadenopathy Urinary: Dialysis catheter - Studies Laboratory Data (last 24 hrs) 04/09/21 22:00: PT 15.9 H, INR 1.38 04/09/21 22:00: WBC 15.10 H, Hgb 13.0, Hct 40.8, Plt Count 196 04/09/21 22:00: Sodium 133 L, Potassium 5.2 H, BUN 41 H, Creatinine 3.84 H, Glucose 68 L, Magnesium 1.5 L, Total Bilirubin 0.5, AST 14 L, ALT 15, Alkaline Phosphatase 162 H Assessment and Plan - Problems (Diagnosis) (1) Acute exacerbation of CHF (congestive heart failure) Onset Date: 02/04/17 Current Visit: No Status: Acute (2) ESRD (end stage renal disease) Current Visit: No Status: Chronic (3) Elevated troponin Current Visit: No Status: Acute (4) Fluid overload Current Visit: No Status: Acute Qualifiers: Hypervolemia type: unspecified Qualified Code(s): E87.70 - Fluid overload, unspecified (5) Missed dialysis Current Visit: No Status: Acute (6) CAD (coronary artery disease) Onset Date: 10/03/17 Current Visit: No Status: Chronic Qualifiers: Coronary Disease-Associated Artery/Lesion type: bypass graft [place] vs. transplanted heart: telida heart Associated angina: unspecified whether angina present Qualified Code(s): I25.810 - Atherosclerosis of coronary artery bypass graft(s) without angina pectoris (7) COPD (chronic obstructive pulmonary disease) Onset Date: 02/04/17 Current Visit: No Status: Chronic Qualifiers: COPD type: unspecified COPD Qualified Code(s): J44.9 - Chronic obstructive pulmonary disease, unspecified (8) Diabetes mellitus Onset Date: 10/03/17 Current Visit: No Status: Chronic Qualifiers: Diabetes mellitus type: type 2 Diabetes mellitus halfway insulin use: unspecified halfway insulin use status Diabetes mellitus complication status: with kidney complications Diabetes mellitus complication detail: with chronic kidney disease Chronic kidney disease stage: on chronic dialysis Qualified Code(s): E11.22 - Type 2 diabetes mellitus with diabetic chronic kidney disease; N18.6 - End stage renal disease; Z99.2 - Dependence on renal dialysis (9) Hyperlipidemia Onset Date: 10/03/17 Current Visit: No Status: Chronic Qualifiers: (10) Hypertension Current Visit: No Status: Chronic Qualifiers: (11) Lymphedema Current Visit: No Status: Chronic - Plan nephrology consulted will plan for dialysis in the AM continue IV lasix, given kayexalate in the ED trend troponins, trend potassium on tele reconcile and continue homem edications DVT ppx Discharge Plan: Home Plan to discharge in: 48 Hours - Advance Directives Does patient have a Living Will: No Does patient have a Durable POA for Healthcare: No - Code Status/Comfort Care Code Status Assessed: Yes (full code ) Critical Care: No Time Spent Managing Pts Care (In Minutes): 70
[2021-04-10] MEDS: HEPARIN 5000 UNIT/ML 1 ML VIAL SQ SCH ×2 (09:30→17:00)
[2021-04-10] MEDS ORDERED: ONDANSETRON 4 MG/2 ML VIAL IV PRN (09:30)
[2021-04-10] MEDS ORDERED: ACETAMINOPHEN 500 MG TAB PO PRN (09:30)
[2021-04-10] MEDS ORDERED: FUROSEMIDE 40 MG/4 ML VIAL IV ONE (09:30)
[2021-04-10] MEDS ORDERED: FUROSEMIDE 100 MG/10 ML VIAL IV ONE (10:25)
[2021-04-10] MEDS ORDERED: HEPARIN 5000 UNIT/ML 1 ML VIAL ONE (10:25)
[2021-04-10 11:32] LABS: Absolute Lymphocytes (CBC) 1.9 K/uL (0.7-4.9); Hematocrit 37.4 % (36.0-45.0); Lymphocytes % 15.1 % (15.3-44.8); MPV 7.4 fL (7.6-11.3); RBC Red Blood Cell Count 4.31 M/uL (3.86-4.86)
[2021-04-10 11:46] LABS: Albumin 1.9 g/dL (3.4-5.0); Bilirubin Total 0.5 mg/dL (0.2-1.0); Potassium 4.6 mmol/L (3.5-5.1); Protein, Total 6.2 g/dL (6.4-8.2)
--- NOTE | 2021-04-10 13:25 | RAD REPORT ---
EXAM DESCRIPTION: Head Brain Wo Cont CLINICAL HISTORY: MENTAL STATUS CHANGE COMPARISON: CT head January 23, 2020 TECHNIQUE: Multiple helical axial tomographic images were obtained of the head without intravenous c ontrast. This exam was performed according to our departmental dose-optimization program, which inclu jad automated exposure control, adjustment of the mA and/or kV according to patient size and/or use o f iterative reconstruction technique. FINDINGS: Mild generalized brain volume loss is demonstrated. There is mild patchy hypoattenuation i n the cerebral white matter suggesting chronic microvascular ischemic changes. There is no acute intr acranial hemorrhage. No mass. No midline shift. No ventriculomegaly. Huggins-white matter differentiatio n is maintained. Paranasal sinuses are clear. Mastoid air cells and middle ear spaces are clear. Orbits and orbital co ntents are unremarkable. Osseous structures are unremarkable. Surrounding soft tissues are unremarkable. IMPRESSION: No acute intracranial process. Electronically signed by: George Chavez MD 04/09/2021 10:28 PM ROTARY SHEAR CUTTER Due to temporary technical issues with the PACS/Fluency reporting system, reports are being signed by the in house radiologists without review as a courtesy to insure prompt reporting. The interpreting radiologist is fully responsible for the content of the report.
[2021-04-10] MEDS ORDERED: HYDROCODONE/APAP 5/325 MG TAB ONE (13:48)
[2021-04-10] MEDS: HYDROCODONE/APAP 5/325 MG TAB PO PRN ×2 (13:50→20:44)
--- NOTE | 2021-04-10 14:05 | CON ---
Date of Consultation: 04/10/2021 Reason For Consultation: Elevated BUN and creatinine, fluid management. History Of Present Illness: This is a pleasant 66-year-old female, well known to me from dialysis with significant past medical history of end-stage renal disease on hemodialysis on Friday, Friday, Friday, CAD status post CABG, hypertension, diabetes, COPD. The patient poor compliant with dialysis, missed dialysis for the last few treatments as usual. The patient came to the hospital complaining of shortness of breath, increased leg swelling, found to have elevation in BUN and creatinine. Allergies: MORPHINE, VANCOMYCIN, TRAMADOL, NITROGLYCERIN. Home Medications: Include aspirin, Plavix, Lasix, doxycycline, Renvela, thiamine, atorvastatin, isosorbide, lisinopril. Past Medical History: Includes; 1. COPD. 2. Congestive heart failure. 3. Hypertension. 4. CAD, status post CABG, complicated with congestive heart failure. 5. End-stage renal disease, on hemodialysis, Friday, Friday, Friday. Past Surgical History: Includes hysterectomy, cholecystectomy, PermCath placement, appendectomy, CABG x4, femoropopliteal bypass. Family History: Positive for CAD, hypertension. Social History: Active smoker. Denied alcohol. Denied drug abuse. Review of Systems: Head and Neck: No red eye. No ear pain. GI: No nausea. No vomiting. : No polyuria. No dysuria. No hematuria. Hogshead Filler: No vaginal discharge. Respiratory: Shortness of breath. Cardiovascular: Leg swelling. Endocrine: No polydipsia. Skin: No rash. Neuro: Has neuropathy. Musculoskeletal: Generalized fatigue. Physical Examination: General: When I saw the patient, the patient lying in bed. Vital Signs: Blood pressure 142/80, pulse of 70, afebrile. Chest: Few crackles bilateral. Heart: S1, S2. Systolic murmur. Abdomen: Soft, nontender. Extremities: Dressing to both lower extremities. Plus edema. Neuro: Alert. No focality. Laboratory Data: WBC 12.7, H and H 11.7/37.4. Sodium 132, potassium 4.6, bicarb 26, BUN 44, creatinine 4, GFR of 11, calcium 8.4. Current Medications: The patient on include heparin, Tylenol, Lasix, Zofran. Assessment And Plan: 1. End-stage renal disease, over volume. I am going to go ahead and arrange for dialysis today. We will challenge the patient and we will follow up. 2. Hypertension, controlled, optimal. We will utilize blood pressure for more diuresis on ultrafiltration. 3. Secondary hyperparathyroid, stable. We will follow up phosphorus level. 4. Anemia of chronic kidney disease. No need for BRONWYN. 5. Congestive heart failure with exacerbation. We will try to establish better volume control with diuresis and ultrafiltration. time spend exam the patient face to face , reviewing the data lab and radiology , placing order , discussing the case with the produce production team member including nursing staff and discussing with the hospitalist 65 min GAMA Voice ID: [id number] Report ID: [id number] MTDD
[2021-04-10] MEDS ORDERED: PNEUMOCOCCAL VACCINE 0.5 ML IMVAC ONE (16:00)
[2021-04-10] MEDS ORDERED: INFLUENZA VACCINE (for 6+ mo) 0.5 ML DOSE IMVAC ONE (16:00)
[2021-04-10 18:28] LABS: Urine Appearance TURBID (Clear); Urine Bilirubin NEGATIVE (Negative); Urine Blood 2+ (Negative); Urine Color YELLOW (Yellow); Urine Glucose NEGATIVE (Negative); Urine Protein 2+ (Negative); Urine Urobilinogen 0.2 mg/dL (0.2-1.0)
[2021-04-10 18:34] LABS: Urine Microscopic Reflex ORDER UMIC
[2021-04-10 18:37] LABS: Urine Bacteria 20-50 /HPF (<20); Urine Mucus 2+ /HPF (NONE SEEN)
--- NOTE | 2021-04-10 18:48 | P.PN ---
Date of Service: 04/10/21 Patient seen and examined. She is complaining of generalized body pains. She has anasarca. She is scheduled for hemodialysis today. Reconcile and continue home medications.
[2021-04-10 23:00] VITALS: O2SAT 92
[2021-04-11] MEDS: HEPARIN 5000 UNIT/ML 1 ML VIAL SQ SCH ×3 (01:33→16:38)
[2021-04-11] MEDS: HYDROCODONE/APAP 5/325 MG TAB PO PRN ×2 (02:46→13:45)
[2021-04-11 05:48] LABS: Absolute Lymphocytes (CBC) 1.4 K/uL (0.7-4.9); Hematocrit 34.4 % (36.0-45.0); Lymphocytes % 19.7 % (15.3-44.8); MPV 7.1 fL (7.6-11.3); RBC Red Blood Cell Count 3.98 M/uL (3.86-4.86)
[2021-04-11 05:58] LABS: Albumin 1.6 g/dL (3.4-5.0); Bilirubin Total 0.4 mg/dL (0.2-1.0); Potassium 3.6 mmol/L (3.5-5.1); Protein, Total 5.5 g/dL (6.4-8.2)
[2021-04-11 06:04] LABS: Albumin 1.6 g/dL (3.4-5.0); Magnesium 1.8 mg/dL (1.8-2.4); Phosphorus 2.4 mg/dL (2.5-4.9); Potassium 3.6 mmol/L (3.5-5.1); Thyroid Stimulating Hormone 2.57 uIU/mL (0.360-3.740)
--- NOTE | 2021-04-11 07:51 | EKG ---
Test Date: 2021-04-09 Test Time: 21:42:54 Customer Account Manager: BIRDIE MEASUREMENT RESULTS: Intervals: Rate: 80 NM: 178 QRSD: 100 QT: 386 QTc: 445 Ackley: P: 60 NM: 178 QRS: 97 T: 89 INTERPRETIVE STATEMENTS: Normal sinus rhythm Possible Left atrial enlargement Rightward axis Anterior infarct, age undetermined Abnormal ECG Compared to ECG 03/25/2021 08:22:36 Right-axis deviation now present Myocardial infarct finding now present Sinus tachycardia no longer present Atrial premature complex(es) no longer present Aberrant conduction of supraventricular beat(s) no longer present Left-axis deviation no longer present Right bundle-branch block no longer present Electronically Signed On 04-11-21 07:46:00 BENEFITS MANAGER by Taj Raymond
[2021-04-11] MEDS ORDERED: CEFTRIAXONE 1,000 MG in NA CHLORIDE 0.9% 50 ML IVPB SCH (09:00)
[2021-04-11] MEDS ORDERED: DIPHENHYDRAMINE 25 MG TAB/CAP PO ONE (09:45)
[2021-04-11] MEDS ORDERED: DIPHENHYDRAMINE 50 MG/ML VIAL IV ONE (09:47)
--- NOTE | 2021-04-11 11:16 | PN ---
Date of Progress Note: 04/11/2021 Subjective: The patient was admitted with over volume, respiratory distress. The patient missed clotilde lysis. Physical Examination: Vital Signs: Blood pressure 139/66, pulse of 70, afebrile. Chest: Faint crackles bilateral base. Heart: S1, S2. Regular. Systolic murmur. Abdomen: Soft, nontender. Extremity: Dressing in both legs, compression dressing. Neurologic: Alert. No focality. Laboratory Data: WBC 7.1, H and H 10.9/34.4. Sodium 138, potassium 3.6, bicarb 28, BUN 21, creatini ne 2.6, calcium of 8, phosphorus 2.4, magnesium 1.8, albumin 1.6, corrected calcium is 10. Current Medications: The patient on include; 1.Diphenhydramine. 2.Ceftriaxone. 3.Tylenol. 4.Lasix 80. 5.Hydrocodone. Assessment And Plan: 1.End-stage renal disease, over volume. Back to normal volume. We will continue the patient on her regular dialysis. We will arrange for dialysis tomorrow. 2.Hypertension, controlled, optimal. We will continue to monitor the patient off blood pressure med ications to utilize the blood pressure to establish better volume control. 3.Congestive heart failure. We established better volume control for the patient with dialysis. We will back to 3 times a week. 4.Secondary hyperparathyroidism. No need for binder. 5.Hypomagnesemia. No need for supplement. 6.Electrolyte imbalance as above. The patient cleared from the Renal standpoint for discharge plann ing. DAMIAN/CELESTINE Voice ID: [id number] Report ID: [id number]
[2021-04-11 12:59] VITALS: BP 138/63; TEMP 96.8
--- NOTE | 2021-04-11 13:02 | P.DS ---
Admission Date: 04/10/21 Discharge Date: 04/11/21 Disposition: ROUTINE DISCHARGE Discharge Condition: FAIR Reason for Admission: missed dialysis - Problems (1) Anasarca Current Visit: No Status: Acute (2) Missed dialysis Current Visit: No Status: Acute (3) COPD (chronic obstructive pulmonary disease) Onset Date: 02/04/17 Current Visit: No Status: Chronic Qualifiers: COPD type: unspecified COPD Qualified Code(s): J44.9 - Chronic obstructive pulmonary disease, unspecified (4) Chronic diastolic heart failure Current Visit: No Status: Chronic (5) ESRD (end stage renal disease) on dialysis Onset Date: ~04/26/20 Current Visit: No Status: Chronic Brief History of Present Illness: Ms. Priest is a 66 yo F with ESRD on HD MWF, CAD s/p CAB, HTN, DM, COPD who presents with 2 days of increasing malaise, weakness and shortness of breath. She has audible wheezes. She has missed dialysis for the past 2 weeks because she has had flu like symptoms. Flu and COVID are negative today. WBC 15.1 Na 133 K 5.2 BUN 41 Cr 3.84 GFR 12 Mg 1.5 alk phos 162 BNP [id number] trop 0.065. Patient admitted for further management. Hospital Course: Patient admitted to the medical floor, nephrology consulted. She underwent hemodialysis. UA suggested the presence of UTI. Patient with chronic recurrent UTI. She has allergy to multiple antibiotics. Prescribed Levaquin. Patient deemed stable for discharge. She is discharged to continue routine hemodialysis. Vital Signs/Physical Exam: Temp Pulse Resp BP Pulse Ox 96.8 F 65 16 138/63 97 04/11/21 12:40 04/11/21 12:40 04/11/21 12:40 04/11/21 12:40 04/11/21 12:40 General: Alert, In no apparent distress, Oriented x3 HEENT: Mucous membr. moist/pink Neck: JVD not distended Respiratory: Clear to auscultation bilaterally, Normal air movement Cardiovascular: Regular rate/rhythm, Normal S1 S2 Gastrointestinal: Soft and benign, Non-distended, No tenderness Musculoskeletal: Swelling (Bilateral legs) Integumentary: Other (Venous stasis dermatitis of bilateral lower extremities.) Neurological: Normal speech, Normal strength at 5/5 x4 extr Laboratory Data at Discharge: WBC 7.10 K/uL (4.3-10.9) D 04/11/21 05:08 Hgb 10.9 g/dL (12.0-15.0) L 04/11/21 05:08 Hct 34.4 % (36.0-45.0) L 04/11/21 05:08 Plt Count 156 K/uL (152-406) D 04/11/21 05:08 PT 15.9 SECONDS (9.5-12.5) H 04/09/21 22:00 INR 1.38 04/09/21 22:00 Sodium 137 mmol/L (136-145) 04/11/21 05:08 Sodium 138 mmol/L (136-145) 04/11/21 05:08 Potassium 3.6 mmol/L (3.5-5.1) 04/11/21 05:08 Potassium 3.6 mmol/L (3.5-5.1) 04/11/21 05:08 BUN 21 mg/dL (7-18) H 04/11/21 05:08 BUN 21 mg/dL (7-18) H D 04/11/21 05:08 Creatinine 2.63 mg/dL (0.55-1.3) H 04/11/21 05:08 Creatinine 2.66 mg/dL (0.55-1.3) H D 04/11/21 05:08 Glucose 91 mg/dL (74-106) 04/11/21 05:08 Glucose 92 mg/dL (74-106) 04/11/21 05:08 Phosphorus 2.4 mg/dL (2.5-4.9) L 04/11/21 05:08 Magnesium 1.8 mg/dL (1.8-2.4) 04/11/21 05:08 Total Bilirubin 0.4 mg/dL (0.2-1.0) 04/11/21 05:08 AST 14 U/L (15-37) L 04/11/21 05:08 ALT 12 U/L (12-78) 04/11/21 05:08 Alkaline Phosphatase 138 U/L (45-117) H 04/11/21 05:08 Home Medications: Aspirin 81 mg PO DAILY 06/13/20 Clopidogrel Bisulfate [Plavix*] 75 mg PO DAILY 06/13/20 Furosemide [Lasix*] 40 mg PO BID 06/14/20 Gabapentin [Neurontin*] 100 mg PO BID 06/14/20 Dicyclomine HCl 1 tab PO Q6H PRN 12/06/20 Sevelamer Carbonate [Renvela*] 2 tab PO TIDWM 12/06/20 Sertraline [Zoloft*] 50 mg PO DAILY #30 tab 02/26/21 Thiamine HCl [Vitamin B-1*] 100 mg PO DAILY #30 tablet 02/26/21 Atorvastatin Calcium [Lipitor] 40 mg OP BEDTIME 03/26/21 Isosorbide Dinitrate 1 tab PO DAILY 03/26/21 Lisinopril [Zestril] 20 mg PO DAILY 03/26/21 Medihoney [Medihoney Woundcare Gel*] 1 appl TOP DAILY #1 tube 03/27/21 Metoprolol Tartrate 25 mg PO BID #60 tablet 03/27/21 Sertraline [Zoloft*] 100 mg PO DAILY #30 tab 03/27/21 Heparin [Heparin 1,000 units/mL *] 8,000 unit IV EVERY HD PRN vial 04/11/21 levoFLOXacin [Levaquin] 500 mg PO Q48H #3 tab 04/11/21 New Medications: levoFLOXacin [Levaquin] 500 mg PO Q48H #3 tab Diet: AHA Activity: Fall precautions Followup: Sharri Fernando MD [ACTIVE - CAN ADMIT] - 1-2 Weeks NONE,NONE [Primary Care Provider] - 1 Week Time spent managing pt's care (in minutes): 36
== END 2021-04-11 17:21 | disposition home health service (06) | DRG 291 ==
LOC: ER 17:08 → ERHOLD 04-10 02:19 → 2ND 04-10 16:24
PROVIDERS: ADMIT Internal Medicine; ATTEND Internal Medicine
PROC: 5A1D70Z Performance of Urinary Filtration, Intermittent, Less than 6 Hours Per Day (ICD-10-PCS; principal; 2021-04-10)
DX: I13.2 Hypertensive heart and chronic kidney disease with heart failure and with stage 5 chronic kidney disease, or end stage renal disease (principal); N18.6 End stage renal disease; I50.33 Acute on chronic diastolic (congestive) heart failure; I25.810 Atherosclerosis of coronary artery bypass graft(s) without angina pectoris; N25.81 Secondary hyperparathyroidism of renal origin; N39.0 Urinary tract infection, site not specified; E11.22 Type 2 diabetes mellitus with diabetic chronic kidney disease; D63.1 Anemia in chronic kidney disease; E78.5 Hyperlipidemia, unspecified; I89.0 Lymphedema, not elsewhere classified; E83.42 Hypomagnesemia; J44.9 Chronic obstructive pulmonary disease, unspecified; R60.1 Generalized edema; R77.8 Other specified abnormalities of plasma proteins; Z95.1 Presence of aortocoronary bypass graft; Z88.8 Allergy status to other drugs, medicaments and biological substances; Z88.5 Allergy status to narcotic agent; Z99.2 Dependence on renal dialysis; Z88.1 Allergy status to other antibiotic agents; Z79.82 Long term (current) use of aspirin; Z79.899 Other long term (current) drug therapy; Z91.15 Patient's noncompliance with renal dialysis; Z79.02 Long term (current) use of antithrombotics/antiplatelets; Z85.42 Personal history of malignant neoplasm of other parts of uterus; Z89.412 Acquired absence of left great toe; Z20.822 Contact with and (suspected) exposure to COVID-19
CPT/HCPCS: 0240U; 36415; 70450; 71045; 80048; 80053; 80069; 80076; 81003; 81015; 83735; 83880; 84443; 84484; 85025; 85610; 87086; 87088; 90935; 93005; 94760; 96374; 96375; 99285; J1200; J1644; J2270; J2405; J3010

== ENCOUNTER 2021-05-17 19:18 | Inpatient (IN) | payer OTHER ==
--- OUTSIDE RECORDS SUMMARY | 2021-05-17 19:33 | XMS REPORT | Continuity of Care Document ---
:1955 Author Organization [facility] t Address [address] [place] [address] Care Team Providers Name Role Phone Landy Rendon Primary Care Physician LISA MOHAMUD Attending Clinician Unavailable Babatunde PIERRE Attending Clinician Mk PIERRE Attending Clinician BABATUNDE Attending Clinician Unavailable Lisa Mohamud MD Attending Clinician Kj PIERRE, Tracy Attending Clinician Cesia Kearns MD Attending Clinician Neeta PIERRE, Thy Attending Clinician [...] Date Expiration Date Sam sow MEDICAID MOLINA [id number] 2011 00:00:00 [facility] [id number] 2010 MEDICAID 00:00:00 Problems Condition Condition Condition Status Onset Resolution Last Treating Co mments Source Name Details Category Date Date Treatment Clinician Date Kidney Kidney Disease Active [facility] disease disease [facility]-15 [facility] 00 Center S/P S/P Disease Active Overview: [facility] femoral-po femoral-po 605 [facility] - pliteal pliteal 00:00: g of this Medic al bypass bypass 00 note Center surgery surgery might be different from the original. Right on 08/05/17 Hyperlipid Hyperlipid Disease Active C HI St [...] Active Overview: [facility] (coronary (coronary 05-20 Formattin L ukes - artery artery 00:00: g of this Medical disease) disease) 00 note Center might be different from the original. S/p CABG- PRITCHETT-LAD, SVG-PDA,r amus,OM3 on 05/20/17 Atheroscle Atheroscle Disease Active Overview : [facility] rosis of rosis of - [place] 00:00: g of this Medical artery of artery of 00 note Cent er extremity extremity might be with with different ulceration ulceration from the original. RLE PVD Acute CHF Acute CHF Disease Active [facility]I [...] l mellitus mellitus 00 Center with with proposal development manager proposal development manager y y disorder, disorder, with with [...] d COPD d COPD Clinics type type alf alf Problem Active [facility] current current [facility] - use of use [facility] History of History of Problem Active [facility] stroke stroke [facility] 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[address] [facility] diabetes diabetes [facility] - mellitus mellitus Memori a with with l hyperglyce hyperglyce Ou [facility] Clin[facility] 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[address] [facility] diabetes diabetes [facility] - mellitus mellitus Memori a with with l diabetic diabetic Outpat i chronic chronic ent kidney kidney Clinics disease disease Kidney Kidney Problem Active [facility] disease disease [facility] Allergies, Adverse Reactions, Alerts Allergy Allergy Status Severity Reaction(s) Onset Inactive Treating Comm ents Source Name Type Date Date Clinician BASIL DRUG Active Unknown-Cmnt 2019-03 Univ ers INGREDI ity of 00:00: [facility] VANCOMYC DRUG Active Med N/V 2019-03 Univers IN INGREDI ity of 00:00: [place] [facility] MORPHINE DRUG Active High Anaphylaxis 2019-03 Uni vers INGREDI ity of 00:00: [place] [facility] AMOXICIL DRUG Active Med Diarrhea 2019-03 Univer s KENZIE-POT ity of CLAVULAN 00:00: [place] ATE [facility] NITROGLY DRUG Active High Anaphylaxis 2019-03 Uni vers CERIN IN ity of 5 % 00:00: [place] DEXTROSE [facility] TRAZODON DRUG Active Med N/V 2019-03 Univers E INGREDI ity of 00:00: [address] TRAZODON Allergy Active High N\\T\\V 2018-0 [facility] E 2-12 00:00: 00 Trazodon Drug Active Nausea And 2018-[address] e Allergy Vomiting 2 [facility] - 00:00: Medical 00 Center Nitrogly Propensi Active Nausea And 2018-0 IV [...] SLSL IN 04-21 ANALOGUE 00:00: S 00 Morphine Propensi Active Anaphylaxis 2018-[address] ty to 04-21 [facility] - adverse 00:00: Medical reaction 00 Center s Vancomyc Adverse Active vomiting [facility] in HCl Reaction [facility] Nitrogly Adverse Active vomiting [facility] t cerin Reaction [facility] Morphine Adverse Active headache, [facility] Sulfate Reaction breathing [facility] NO KNOWN Drug Active Univers ALLERGIE Class ity of [facility] Clindamy Adverse Active vomiting [facility] S t riley HCl Reaction [facility] - Memoria l [facility] ent Clinics Family History Family Member Diagnosis Comments Start Date Stop Date Source Natural father COPD [facility] Natural father Cancer [facility] Natural father Hypertension [facility] Natural mother No Known Problem [facility] Natural sister Asthma [facility] Natural sister COPD [facility] es - [facility] Social History Social Habit Start Date Stop Date Quantity Comments Source Alcohol intake 2019-12-31 2019-12-[address] [facility] es - 00:00:00 00:00:00 non-drinker of Medical Ce nter alcohol (finding) Cigarettes smoked 2017-06-10 2017-06-10 [facility]pack per 00:00:00 00:00:00 Medical Center day) - Reported Cigarette 2017-06-10 2017-06-[address] Ortega - pack-years 00:00:00 00:00:00 [facility] Tobacco use and 2017-06-10 2017-06-[address] Janna kes - exposure 00:00:00 00:00:00 [facility] History of tobacco 2017-05-[address] [facility] - use 00:00:00 [facility] Sex Ass[birth year] [facility] Saldivar kes - 00:00:00 00:00:00 [facility] Smoking Status Start Date Stop Date Source Former smoker 2017-06-10 00:00:00 2017-06-10 00:00:00 [facility] Medications Ordered Filled Start Stop Current Ordering Indication Dosage Frequency Signature Comments Components Source Medication Medication Date Date Medication? Clinician (SIG) Name Name mupirocin 2019-03 Yes QD Apply [facility] (BACTROBAN) 0-03 topically Lay es - 2 % 10:49: daily. Medical ointment 00 [place] collagenase 2019-03 Yes QD Apply [facility] t (SANTYL) 0-03 topically [facility] - 250 units/g 10:49: daily. Medi marilin ointment 00 [place] bumetanide 2019-03 Yes 2mg [id number] Take [address] (BUMEX) 2 0-03 [id number] by mouth 3 [facility] - MG tablet [...] units/g 10:49: daily. Medi marilin ointment 00 [place] bumetanide 2019-03 Yes 2mg [id number] Take [address] (BUMEX) 2 0-03 [id number] by mouth 3 [facility] - MG tablet [...] ointment 00 Center bumetanide 2019-03 Yes 2mg [id number] Take [address] (BUMEX) 2 0-03 [id number] by mouth 3 [facility] - MG tablet [...] units/g 10:49: daily. Medi marilin ointment 00 [place] bumetanide 2019-03 Yes 2mg [id number] Take [address] (BUMEX) 2 0-03 [id number] by mouth 3 [facility] - MG tablet [...] [facility] (NICODERM 12-15 the skin. Miguel A s - CQ TD) 11:03: 00:00 Medical 48 :00 Center aspirin 81 2020-0 2020- No 81mg QD Take [address] MG EC 12-15 by mouth [facility] - tablet 11:03: 00:00 daily. Medical 18 :00 Center aspirin 81 2020-0 2020- No 81mg QD Take [address] MG EC 12-15 by mouth [facility] - tablet 11:03: 00:00 daily. Medical 18 :00 Center isosorbide 2020-0 2020- No 30mg QD Take [...] [facility] en-codeine 6-08 tablet by Lumichael s - (TYLENOL 00:00: mouth Medical #3) [...] Center and 300 mg at night. gabapentin 0 Yes Take [address] [facility] (NEURONTIN) 6-05 [...] Q.5D Take [address] sulfate 325 -17 tablet [facility] - (65 FE) MG 00:00: 00:00 (325 mg Med ical tablet 00 :00 total) by Center mouth 2 (two) times daily. ferrous 2020- No 325mg Q.5D Take [address] sulfate 325 -03 08-17 tablet [facility] - (65 FE) MG 00:00: 00:00 (325 mg Med ical tablet 00 :00 total) by Center mouth 2 (two) times daily. carvedilol 2017- Yes 12.5mg Q.5D Take [address] (COREG) 4-09 tablet [facility] - 12.5 MG 00:00: (12.5 mg Medica l tablet 00 total) by Center mouth 2 (two) times daily. atorvastati 2017-0 Yes 40mg QD Take 1 [...] tablet 00 by mouth Center daily. NIFEdipine 2020- No 60mg QD Take 1 CHI [...] 00 :00 by mouth Center daily. NIFEdipine 2017- 2020- [...] ter on inhaler (two) times daily. fluticasone Yes 1{puff} Q.5D Inhale [address] (FLOVENT 3-04 puff by [facility] - HFA) 110 00:00: mouth via Medi marilin mcg/actuati [address] on inhaler (two) times daily. fluticasone Yes 1{puff} Q.5D Inhale [address] (FLOVENT 3-04 puff by [facility] - HFA) 110 00:00: mouth via Medi marilin mcg/actuati [address] on inhaler (two) times daily. fluticasone Yes 1{puff} Q.5D Inhale 1 [...] [facility] NIFEdipine NIFEdipine Yes Frakni TAKE [address] ER ER Jas [...] Memoria TWICE A l [facility] Advair Advair Yes Franki INHALE [...] Franki TAKE ONE [facility] (Ergocalcif (Ergocalcif Ajs CAPSULE BY [facility] - berta) berta) MOUTH [...] cm Heart rate 2020-01-01 08:41:00 60 /min [facility] Respiratory rate 2020-01-01 08:41:00 18 /min [facility] Oxygen saturation in 2020-01-01 08:41:00 100 /min [facility] Arterial blood by Medical Ce nter Pulse oximetry Systolic blood 2020-01-01 08:32:00 162 mm[Hg] [facility] pressure [facility] Diastolic blood 2020-01-01 08:32:00 73 mm[Hg] [facility] Body temperature 2020-01-01 07:41:00 36.56 Deanne [facility] Body weight 2019-12-30 04:28:00 78.2 kg [facility] BMI 2019-12-30 04:28:00 27.00 kg/m2 [facility] Body height 2019-12-25 21:05:00 170.2 cm [facility] Procedures Procedure Date / Time Performed Performing Clinician [facility] e REPORT OF PROCEDURE - 2020-01-05 08:40:02 Provider, Default [facility] ENDOSCOPY [facility] RHYTHM STRIP - SCAN 2020-01-05 08:31:43 Provider, Default [facility] [place] RHYTHM STRIP - SCAN 2020-01-05 08:31:42 Provider, Default [facility] RHYTHM STRIP - SCAN 2020-01-05 08:31:40 Provider, [facility] CARDIAC CATH REPORT - 2020-01-05 08:31:15 Provider, [facility] CARDIAC CATH REPORT - 2020-01-05 08:31:13 Provider, Default [facility] POCT-GLUCOSE METER 2020-01-01 06:33:00 Pat Mohamud [facility] CBC W/PLT COUNT & AUTO 2020-01-01 05:37:00 JerichoLily [facility] COMPREHENSIVE METABOLIC 2020-01-01 05:37:00 Lily Echavarria [facility] POCT-GLUCOSE METER 2019-12-31 20:50:00 Pat Mohamud [facility] POCT-GLUCOSE METER 2019-12-31 18:00:00 Pat Mohamud [facility] POCT-GLUCOSE METER 2019-12-31 11:42:00 [facility] PO[facility]SE METER 2019-12-31 06:29:00 [facility] CBC W/PLT COUNT & AUTO 2019-12-31 06:05:00 SturgisLily [facility] COMPREHENSIVE METABOLIC 2019-12-31 06:05:00 JerichoBrandonu [facility] MAGNESIUM 2019-12-31 06:05:00 [facility] POCT-GLUCOSE METER 2019-12-30 20:13:00 [facility] POCT-GLUCOSE METER 2019-12-30 16:26:00 [facility] SURGICALLY OBTAINED 2019-12-30 13:59:46 CadePat [facility] - CULTURE + GRAM STAIN Medical [facility] ANAEROBIC CULTURE 2019-12-30 13:59:46 [facility] SURGICALLY OB[facility]ED 2019-12-30 13:54:56 CadeEvensruel [facility] + GRAM STAIN Medical [facility] ter ANAEROBIC CULTURE 2019-12-30 13:54:56 [facility] TISSUE EXAM 2019-12-30 13:38:00 Tala Santacruz [facility] I&D,BONE FOOT 2019-12-30 13:11:00 Tala Santacruz [facility] POCT-GLUCOSE METER 2019-12-30 11:39:00 [facility] ECG 12-LEAD 2019-12-30 10:53:36 Unknown, Hl7 [facility] POCT-GLUCOSE METER 2019-12-30 05:39:00 [facility] SARS-COV2/RT-PCR ([facility] & 2019-12-30 05:11:00 Pat Mohamud [facility] - REF LABS) [facility] CBC W/PLT COUNT & AUTO 2019-12-30 05:09:00 SturgisLily [facility] METABOLIC 2019-12-30 05:09:00 SturgisLily [facility] POCT-GLUCOSE METER 2019-12-29 21:09:00 Evens Mohamudrule [facility] POCT-GLUCOSE METER 2019-12-29 11:10:00 [facility] HEMODIALYSIS INPATIENT 2019-12-29 08:12:17 Brandie Khan [facility] POCT-GLUCOSE METER 2019-12-29 06:10:00 Pat Mohamud [facility] CBC W/PLT COUNT & AUTO 2019-12-29 05:50:00 SturgisLily [facility] 2019-12-29 05:50:00 [facility] POCT-GLUCOSE METER 2019-12-28 20:37:00 Pat Mohamud [facility] POCT-GLUCOSE METER 2019-12-28 17:38:00 Pat Mohamud [facility] POCT-GLUCOSE METER 2019-12-28 13:12:00 Pat Mohamud [facility] POCT-GLUCOSE METER 2019-12-28 05:43:00 Pat Mohamud [facility] CBC W/PLT COUNT & AUTO 2019-12-28 04:41:00 SturgisLily [facility] METABOLIC 2019-12-28 04:41:00 [facility] ABD AO & LOWER EXT 2019-12-28 02:30:00 Sakina Tamayo [facility] ANGIOS/ POSS [facility] POCT-GLUCOSE METER 2019-12-27 20:32:00 [facility] MR LOWER EXTREMITY 2019-12-27 16:30:00 Sturgis Lily [facility] - WITHOUT IV CONTRAST [facility] POCT-GLUCOSE METER 2019-12-27 14:06:00 Cade, Salman [facility] WOUND CULTURE + GRAM 2019-12-27 12:02:00 Annia Delgado CH, I [facility] POCT-GLUCOSE METER 2019-12-27 06:44:00 CadePat diaz [facility] POCT-GLUCOSE METER 2019-12-27 05:49:[address] [facility] CBC W/PLT COUNT & AUTO 2019-12-27 05:05:00 [facility] COMPREHENSIVE METABOLIC 2019-12-27 05:05:00 Sturgis [facility] HEMODIALYSIS INPATIENT 2019-12-27 00:31:18 Brandie Khan [facility] POCT-GLUCOSE METER 2019-12-26 20:51:00 Cade [facility] TRANSFUSION SERVICE 2019-12-26 18:02:44 ProviderRocco [facility] REPORT - SCAN Scanning [facility] POCT-GLUCOSE METER 2019-12-26 16:42:00 Cade [facility] CTA AAA AND RUNOFF 2019-12-26 15:27:00 Sakina Tamayo [facility] POCT-GLUCOSE METER 2019-12-26 11:59:00 Cade [facility] POCT-GLUCOSE METER 2019-12-26 06:09:00 Cade [facility] CBC W/PLT COUNT & AUTO 2019-12-26 04:36:00 SturgisLily [facility] COMPREHENSIVE METABOLIC 2019-12-26 04:36:00 Sturgis [facility] PREPARE LEUKO-REDUCED RBC 2019-12-25 23:54:00 Brandie Khan [facility] POCT-GLUCOSE METER 2019-12-25 20:51:00 Cade [facility] TRANSFUSION SERVICE 2019-12-25 18:04:44 Provider [facility] REPORT - SCAN Scanning [facility] POCT-GLUCOSE METER 2019-12-25 17:01:00 Pat [facility] POCT-GLUCOSE METER 2019-12-25 11:25:00 Pat Mohamud [facility] CBC W/PLT COUNT & AUTO 2019-12-25 05:59:00 Lily Echavarria [facility] DIFFERENTIAL [facility] COMPREHENSIVE METABOLIC 2019-12-25 05:59:00 Lily Echavarria [facility] POCT-GLUCOSE METER 2019-12-25 05:58:00 Pat Mohamud [facility] TRANSFUSE LEUKO-REDUCED 2019-12-24 19:06:17 [facility] RED BLOOD CELLS [facility] POCT-GLUCOSE METER 2019-12-24 16:15:00 Pat Mohamud [facility] ABORH, MANUAL 2019-12-24 08:25:00 Jovita Griffith [facility] POCT-GLUCOSE METER 2019-12-24 06:11:00 Pat [facility]ud [facility] TYPE AND SCREEN, 2019-12-24 06:08:00 Brandie Khan [facility] es - AUTOMATED [facility] CBC W/PLT COUNT & AUTO 2019-12-24 05:51:00 Lily Echavarria [facility] COMPREHENSIVE METABOLIC 2019-12-24 05:51:00 Lily Echavarria [facility] POCT-GLUCOSE METER 2019-12-23 21:23:00 Pat [facility]ud [facility] POCT-GLUCOSE METER 2019-12-23 16:42:00 [facility] MR LOWER EXTREMITY JOINT 2019-12-23 15:34:00 Tala Santacruz [facility] ONLY WITHOUT IV CONTRAST [facility] LEFT MR BRAIN WITHOUT IV 2019-12-23 15:34:00 Lily Echavarria [facility] - CONTRAST [facility] POCT-GLUCOSE METER 2019-12-23 11:16:00 Pat Mohamud [facility] ARTERIAL DOPPLER LEGS 2019-12-23 09:38:[address] [facility] AMMONIA 2019-12-23 04:05:00 CarrascoMariela taylor [facility] CBC W/PLT COUNT & AUTO 2019-12-23 04:00:00 SturgisLily [facility] COMPREHENSIVE METABOLIC 2019-12-23 04:00:00 SturgisLily [facility] SARS-COV2/RT-PCR ([facility] & 2019-12-23 03:59:00 Pat Mohamud [facility] POCT-GLUCOSE METER 2019-12-22 20:34:00 Pat Mohamud [facility] POCT-GLUCOSE METER 2019-12-22 16:43:00 Pat Mohamud [facility] POCT-GLUCOSE METER 2019-12-22 11:31:[address] [facility] POCT-GLUCOSE METER 2019-12-22 06:30:[address] [facility] CBC W/PLT COUNT & AUTO 2019-12-22 05:14:00 SturgisLily [facility] 2019-12-22 05:14:00 [facility] POCT-GLUCOSE METER 2019-12-21 20:26:00 [facility] POCT-GLUCOSE METER 2019-12-21 17:22:00 Cade [facility] POCT-GLUCOSE METER 2019-12-21 12:35:[address] [facility] POCT-GLUCOSE METER 2019-12-21 07:20:00 Cade [facility] POCT-GLUCOSE METER 2019-12-21 05:52:00 Cade [facility] C-REACTIVE PROTEIN 2019-12-21 04:39:00 Annia Delgado [facility] CBC W/PLT COUNT & AUTO 2019-12-21 04:39:00 [facility] COMPREHENSIVE METABOLIC 2019-12-21 04:39:00 [facility] US ABDOMEN COMPLETE 2019-12-20 21:17:00 April [facility] POCT-GLUCOSE METER 2019-12-20 20:23:00 Cade [facility] POCT-GLUCOSE METER 2019-12-20 17:31:00 Pat Mohamud [facility] CT BRAIN WITHOUT IV 2019-12-20 16:04:00 [facility] Center AMMONIA 2019-12-20 14:41:00 [facility] BLOOD GAS, ARTERIAL 2019-12-20 14:28:00 [facility] XR FOOT 2 VIEWS RIGHT 2019-12-20 11:55:00 Annia Delgado [facility] POCT-GLUCOSE METER 2019-12-20 11:28:00 Pat Mohamud [facility] POCT-GLUCOSE METER 2019-12-20 06:20:00 Cade [facility] OCCULT BLOOD, STOOL 2019-12-20 06:19:00 [facility] IRON, TIBC, % SAT. 2019-12-20 05:06:00 [facility] (WITHOUT FERRITIN) [facility] VITAMIN B12 AND FOLATE 2019-12-20 05:06:00 [facility] RETICULOCYTE COUNT 2019-12-20 05:06:00 [facility] HAPTOGLOBIN 2019-12-20 05:06:00 [facility] TSH/FREE T4 IF INDICATED 2019-12-20 05:06:00 [facility] FERRITIN 2019-12-20 05:06:00 Sakina Chen [facility] ANTI-NUCLEAR ANTIBODY 2019-12-20 05:06:[address] [facility] ([facility]) [facility] KAPPA / LAMBDA LIGHT 2019-12-20 05:06:[address] [facility] PROTEIN ELECTROPHORESIS, 2019-12-20 05:06:[address] [facility] PERIPHERAL BLOOD SMEAR - 2019-12-20 05:06:00 Sakina Chen [facility] PATHOLOGIST REVIEW [facility] W/[facility]T COUNT & AUTO 2019-12-20 05:06:00 Marcial Chapa [facility] COMPREHENSIVE METABOLIC 2019-12-20 05:06:00 Marcial Chapa [facility] T4, FREE 2019-12-20 05:06:00 April [place] Carrillo [facility] ROGER TITER AND PATTERN 2019-12-20 05:06:00 Sakina Chen [facility] PT/APTT 2019-12-20 05:06:00 Sakina Chen [facility] FIBRINOGEN 2019-12-20 05:06:00 April [place] Carrillo [facility] D-DIMER 2019-12-20 05:06:00 April [place] Carrillo [facility] POCT-GLUCOSE METER 2019-12-19 20:35:00 Pat Mohamud [facility] POCT-GLUCOSE METER 2019-12-19 16:06:00 Pat Mohamud [facility] HEMODIALYSIS INPATIENT 2019-12-19 16:02:09 Sharri Fernando [facility] CBC W/PLT COUNT & AUTO 2019-12-19 05:35:00 Marcial Chapa [facility] BASIC METABOLIC PANEL (7) 2019-12-19 05:35:00 Marcial Chapa [facility] LACTATE DEHYDROGENASE 2019-12-19 05:35:[address] [facility] ([facility]) [facility] POCT-GLUCOSE METER 2019-12-19 05:24:00 Cade [facility] POCT-GLUCOSE METER 2019-12-18 21:35:00 [facility] POCT-GLUCOSE METER 2019-12-18 16:05:00 Cade [facility] POCT-GLUCOSE METER 2019-12-18 07:45:00 Cade [facility] POCT-GLUCOSE METER 2019-12-18 06:14:00 Cade [facility] POCT-GLUCOSE METER 2019-12-17 21:44:00 Cade [facility] POCT-GLUCOSE METER 2019-12-17 17:52:00 Cade [facility] POCT-GLUCOSE METER 2019-12-17 12:22:00 Cade [facility] HEMODIALYSIS INPATIENT 2019-12-17 10:33:08 Bill [facility] POCT-GLUCOSE METER 2019-12-17 06:18:00 Cade [facility] CBC W/PLT COUNT & AUTO 2019-12-17 04:14:00 Marcial Chapa [facility] COMPREHENSIVE METABOLIC 2019-12-17 04:13:00 Marcial Chapa [facility] POCT-GLUCOSE METER 2019-12-16 20:55:00 [facility] POCT-GLUCOSE METER 2019-12-16 18:24:00 Cade [facility] HEPATITIS B SURFACE 2019-12-16 16:02:00 Bill [facility] ANTIBODY [facility] HEPATITIS B SURFACE 2019-12-16 16:02:00 Bill Aymen [facility] HEPATITIS C ANTIBODY 2019-12-16 16:02:00 [facility] CORE 2019-12-16 16:02:00 [facility], TOTAL [facility] POCT-GLUCOSE METER 2019-12-16 14:47:00 [facility] IR TUNNELED CATHETER 2019-12-16 14:26:00 Sharri Fernando [facility] INSERTION [facility] HEMODIALYSIS INPATIENT 2019-12-16 12:37:39 Brandie Khan [facility] POCT-GLUCOSE METER 2019-12-16 11:01:00 Pat Mohamud [facility] XR CHEST 1 VIEW PORTABLE 2019-12-16 05:55:00 Marcial Chapa ra [facility] - / BEDSIDE [facility] POCT-GLUCOSE METER 2019-12-16 05:51:00 Pat Mohamud [facility] CBC W/PLT COUNT & AUTO 2019-12-16 04:08:00 Marcial Chapa [facility] BASIC METABOLIC PANEL (7) 2019-12-16 04:08:00 Marcial Chapa [facility] PROTHROMBIN TIME/INR 2019-12-16 04:08:00 Marcial Chapa [facility] SARS-COV2/RT-PCR ([facility] & 2019-12-16 01:45:[address] [facility] - REF LABS) [facility] Plan of Care Planned Activity Planned Date Details Comments Source Future Scheduled 2020-12-[address] [facility] 00:00:00 examination [facility] (regime/therapy) [code = 839472885] Future Scheduled 2020-12-[address] [facility] Test 00:00:00 examination [facility] (regime/therapy) [code = 145449606] Future Scheduled 2020-12-[address] [facility] Test 00:00:00 examination [facility] (regime/therapy) [code = 183103996] Future Scheduled 2020-12-[address] [facility] 00:[facility]:00 examination [facility] Center (regime/therapy) [code = 457306906] Future Scheduled 2020-12-[address] [facility] 00:00:00 [facility] colon (procedure) [code = 486872048] Future Scheduled 2020-12-[address] [facility] Test 00:00:00 [facility] colon (procedure) [code = 262884502] Future Scheduled 2020-12-[address] [facility] Test 00:00:00 [facility] colon (procedure) [code = 310647233] Future Scheduled 2020-12-[address] [facility] 00:00:00 [facility] colon (procedure) [code = 510746911] Future Scheduled 2020-11-29 INFLUENZA VACCINE (#1) C [...] 00:00:00 (1 of 1 - Medical Center [id number]_Huyruhf PCV13) [code = PNEUMOCOCCAL 65+ YRS (1 of 1 - ORWL39_Pahumov PCV13)] Future Scheduled 2020 PNEUMOCOCCAL 65+ YRS [facility] - Test 00:00:00 (1 of 1 - Medical Center BELL46_Szigwhw PCV13) [code = PNEUMOCOCCAL 65+ YRS (1 of 1 - WUYZ04_Jltfvxs PCV13)] Future Scheduled 2020 PNEUMOCOCCAL 65+ YRS [facility] - Test 00:00:00 (1 of 1 - Medical Center MGVQ31_Jpzwuyq PCV13) [code = PNEUMOCOCCAL 65+ YRS (1 of 1 - RMZC61_Ihqggft PCV13)] Future Scheduled 2020 PNEUMOCOCCAL 65+ YRS [facility] - Test 00:00:00 (1 of 1 - Medical Center ZFUW59_Zqxgpvf PCV13) [code = PNEUMOCOCCAL 65+ YRS (1 of 1 - YRSU83_Pxqhtqy PCV13)] Future Scheduled 2017-11-[address] [facility]00 measurement [facility] (procedure) [code = 87697161] Future Scheduled 2017-11-[address] [facility] 00:[facility]:00 measurement [facility] (procedure) [code = 14927730] Future Scheduled 2017-11-[address] [facility] 00:[facility]:00 measurement [facility] (procedure) [code = 45114221] Future Scheduled 2017-11-[address] [facility] 00:00:00 measurement [facility] (procedure) [code = 67434277] Future Scheduled 2005 SHINGLES VACCINES (1 [facility] [...] s - Test 00:00:00 (procedure) [code = [facility] 35007948] Future Scheduled [address] [facility] 00:00:00 (procedure) [code = [facility] 46394218] Future Scheduled [address] [facility] Test 00:00:00 (procedure) [code = [facility] 25504341] Future Scheduled [address] [facility] Test 00:00:00 (procedure) [code = [facility] 21486556] Future Scheduled [address] [facility] Test 00:00:00 malignant [facility] cervix (procedure) [code = 938190193] Future Scheduled [address] [facility] Test 00:00:00 [facility] cervix (procedure) [code = 197632601] Future Scheduled [address] [facility] Test 00:00:00 [facility] cervix (procedure) [code = 588247874] Future Scheduled [address] [facility] Test 00:00:00 [facility] cervix (procedure) [code = 838592312] Future Scheduled 1974 DTAP/TDAP/TD VACCINES [facility] I [...] 00:00:00 protein (procedure) [facility] Center [code = 463807312] Future Scheduled [address] DIABETIC EYE EXAM [facility] - Test 00:00:00 [code = DIABETIC EYE [facility] EXAM] Future Scheduled 1965 Urine screening for [facility] - Test 00:00:00 protein (procedure) [facility] Center [code = 578473284] Future Scheduled 1965 DIABETIC EYE EXAM [facility] - Test 00:00:00 [code = DIABETIC EYE [facility] EXAM] Future Scheduled 1965 Urine screening for [facility] Test 00:00:00 protein (procedure) [facility] Center [code = 906407330] Future Scheduled 1965 DIABETIC EYE EXAM [facility] - Test 00:00:00 [code = DIABETIC EYE [facility] EXAM] Future Scheduled 1965 Urine screening for [facility] Test 00:00:00 protein (procedure) [facility] [code = 211218045] Future Scheduled [address] [facility] Test 00:00:00 [facility] breast (procedure) [code = 564120850] Future Scheduled [address] [facility] 00:00:00 [facility] breast (procedure) [code = 944317641] Future Scheduled [address] [facility] Test 00:00:00 [facility] breast (procedure) [code = 899176501] Future Scheduled [address] [facility] 00:00:00 [facility] breast (procedure) [code = 255115955] Encounters Start End Encounter Admission Attending Care Care Encounter Source Date/Time Date/Time Type Type Clinicians Facility Department ID 2019-12-16 Inpatient UR PAT MOHAMUD [facility] Nephrology [id number] [facility] 00:14:00 2020-03-28 2020-03-29 Emergency Babatunde Clay RUST [id number] 15:50:00 20:31:00 Maureen Terrazas [id number] [place] [id number] [place] [id number] 2020-03-28 2020-03-28 Emergency X BABATUNDE RUST ERT [id number] [facility] 15:50:00 15:50:00 CLAY joe [facility] 2019-12-16 2020-01-01 Hospital UR Pat Mohamud [facility] [id number] [facility]:14[facility] 10[facility] 2019-12-[address] [facility] [id number] [facility] 13:11:00 14:14:00 Event Jamin Kearns [facility] 2019-12-30 2019-12-[address] [facility] [id number] 12:30:00 13:19:00 [facility] 2019-12-28 2019-12-28 Surgery Belkis, [facility] [id number] 12:00:00 12:54:00 Im[facility] 2019-12-17 2019-12-17 Travel [facility] [id number] [facility] 00:[facility] 00:00:00 [facility] 2019-12-16 2019-12-16 Orders Monica, [facility] [id number] 00:00:00 00:00:00 Only [facility] 2018-11-17 2018-11-17 [facility] [id number] 11:30:00 11:30:00 [facility] Outpati [facility] Clinics 2018-10-06 2018-10-06 [facility] [id number] 16:14:00 16:14:00 [facility] 2018-09-28 2018-09-28 [facility] [id number] 10:30:00 10:30:00 [facility] Outpat[facility] Clinics 2017-09-22 2017-09-22 Outpatient ANTONY NOYOLA [facility] [id number] [facility] 00:00:00 00:00:00 BIJI Results Test Description Test Time Test Comments Results Result Comments Source ANAEROBIC CULTURE 2020-01-04 10:26:00 Test Item Value Reference Range Interpretation Comme nts CULTURE (BEAKER) (test code = 1095) No anaerobes isolated Tissue [id number] 10:21:00 Test Item Value Reference Range Interpretation Comments Case Report (test code Surgical Pathology = 104) Report Case: [id number] Authorizing Provider: Tala Santacruz DPM Collected: 12/30/2019 01:38 PM Ordering Location: [address] Med/Surg Received: 12/31/2019 06:52 AM Pathologist: Jovita Griffith MD Specimens: A) - Soft Tissue, Other, left 5th proximal phalanx B) - Metatarsal, Left, left 5th metatarsal DIAGNOSIS (test code = [id number] 3220) FuZzEwMzNcZnRuYmpcdWMx EPxhamOrTVhki0JgD5ZcOc AwMFxhbnNpXGRlZmxhbmcx MRRnRGO4dvAbSUOmBImiBB ZzYRowDa9jyNYzxSuoAkPc JCXhh5jehhIVmpqwjYm3a6 ltCXDrFzP1eSKgTAboQ7bo qrWzmTZbVHKjRQl6eB59WC FhyF3lzTOaZQlmnpSrNvM3 UDpiVCJsOyP5MHSqfLYwOO KgM0keJVAxGOmfBWGgNDjx bFOjQTT9nIccf5B7eZTztF AawLwiPdAbIsQtVRBMl7Ew KIn0pMcgJ8TwTAGrCrP6pR QgUGFyYWdyYXBoIEZvbnQ7 eU51ZAebhgV9mEDxa8Wjb6 2eo658jT0nsFMvWYP4HLEt WRVhhTObBTZbRLI5CBCnvD ZuR1x9GjSxmMRxV3T7GcUf uAQyI2R6HtApyUApD7H5Gz EcmRKyTAIcbFRpYy7ooUZh sVKosh3tob79ZSA1f6DzyO otZKW0ASJ0UdZhPj5coXKz ZRIvWU0xHrWshOPgKVAfpb 27jRwbFAjnhfPyrO5jDcYw WAMjkYWdGHUpGT1noFUsWD DxgW4eizdjQWJbOzKgtmoy DQZmbYufnjDrUa8jgAmrVB Q0NBkcF4qmwH2rBaC8BZan Y9xrbB8pLYm6BXmctTJ4UA JzlP2kBN5jbggig6pjVuOa XG3spvtdo6wzQvLwOX7vbj o9c1buUjFcUJ8szwwkh1hh NzIwXGhlYWRlcnkwXGZvb3 EhofzuDBGvf8QhK8IttOme H93fpXftM02pDBGibCiffM 7crLbyoK8vDyAsRhKxECld bFxwbGFpblxmMVxmczIwXG waxnfuTCVbMApkZ1hfEpSg DUOwsQbvIRltz0QsVZUuMI RmVhDgRW3gFg2METzwHNPT SFZIYZGPOFWNVk9NJZ6YKX CWWGVSWP7KYAJKQI1OJ6c3 IHQwupRcNFGqPHBEHV3tG2 kZKVWYFrXAXrpONJ2JHDKH UlRJTEFHRSBXSVRIIFNVUl PCLJ4OEF7EQOVLTJLWEYFR RCBDSFJPTklDIElORkxBTU 1BVElPTlxwYXJccGFyIEIu IEJPTkUsIExFRlQgRklGVE ggTUVUQVRBUlNBTCwgQklP UFNZOlxwYXIgICAgLSBBQ1 JJIGTHU4ULS40KMWjTCPsC IFxwYXIgICAgLSBTRVBBUk GWPRSNFeLXZNUJSEDrU4Gn ApaNDn0LP95BSZXAPZCMOS KVO1NGBVHFDZJCBIAIV8OC T2KeOK2UA7DCK4yMVPCZRU BHUkFOVUxBVElPTiBUSVNT VGWyHr6XVJTQWS3FXNWvef 70JFN0IuZuu8S6BYC2HXSc LYTtb5liMTAfpJLbUnEfNn NcZnRuYmpcdWMxXGRlZmYw a9mkr399bJBua5ouLKOiQq W0qBFwSWDboXQuR011KJTv OXcae4txn4VjCOBngEEfm7 R6LPOJbcmzjLa0gUbyM18g y5C1JbnbM7nnZRRsZCJaH5 DyTM6nZFHfMlc9QBO6JFU0 RJAmLTMzX7ZwAH0aONKyqP RmEFv7w1lzgGdnJSKkVSH5 u2faYHtriiZmQY0ssd7lhA t5u3zhugZiHMPaZOCwjIDD FAWnB1ZnqPisAo4tlVe3yD lgKebwSDG2Zdx6BQ4tlr87 pjl0lJdiQPTfefebVhC9BO ynSINrnmowHGy3ARjhDWFq jJD3LQZkhMBrQ9HlDYGzPK 6iila2JHF1COtuSUCyZpN7 NDBcaGVhZGVyeTcyMFxmb2 97QOK7ZfHeRU7iB7Sup5P8 iI6hwAWsWUYmhBWrGcWyGP Tsqo6dtCCkBAydz5FtZGG2 wqW1uWNcrGItINIyVaN7AF qhRJ3ixy76XHEhRRJ1nx4s bGNccGdicmRyaGVhZFxwZ2 SvHYWlb761TKPcY5OdWKMt j0H5fgIoMzOeRQAniNW9kn H8XHLcKF7hlahbh2tmUToq AZmuOSYhcxJ5wmL6CCVtbL MwB3CfhI1hJVOhHM0edvbp m0xmEWD0YAnqCUYkGVG2Pk LqFYMas9Hzgkq8OyIxt3Cm nDQiOAczD13sb392SSZgfg RxG2gjnQXkujeebYFqqyez TWihkqQ0AGEbOSarrahiMA ZmOWmrK0lsSlCxYBQtiEwl ZTylr0PsPHPlCKLtQdUnwS JsJKTlWji5VJJaqHXvUHLq BkKrZ0zyyekwEmWQRVZcc8 ckH4asaPZBySVnK3MzSDhm yoFoXLxqDFvfJHW3MJO2Zr 88FtJ6ZCWlmw05 CPT Code(s) (test code v6hoeYPfZCLsxBKdMpQmDQ = 3357) MqHMKww2ghLPTotNDtKuXg MzNcZnRuYmpcdWMxXGRlZm Nnh5jvn628dFQme1vkBSUf FcK6hPGtVGNtnVYrQ855c0 ria3woedZpuUP1HNGuXEC8 KNvmtnDozrT0YZxwcFPlCh R6KHlemyCdIZxggeNxikRx Omx8BDCtZ381ASW4mCijn8 twVRU5EJYvUQTnUbFuPc3t cDDjF060YGQzFFCINVRrnB n0XMUpnvUihvZcwTQJt782 C340c4pfQSOvhjHxlKqBcq orq9akB890XTUurMIzbvRk GeZwCWHxzFIsbIP4AWIqWR 1mkmmbIuAhWR4ekqujMyNy JI1mukh8EfGsOW9ndpavIi XyZUrcHADwrvqjTRVob2Zs rmqzIT7hE8Tuq2E5iB0ckW EyFFOjnCFsAkKpEXPevp4u tYTbRUjpl1VjOGF4emG0zE FmaRTwSRJmEL56Jqunz0Zi XynfELD5LHHeinScq1Gce0 meVhNdaaRyR8hrK8ZqVQFq IDAiWZLiOzExyvUqv1Yco6 ZypAFrtNo9n9hcECXxCCNv hYvyn4eqXGO6AETnP2H4jQ Riv3wlEZsmKSYutHR4nccc QHqlJKPncaX2vmstZFihTU AmvMJ1jruwOSrjEAJnHrI7 dudqORbwSVDvGEF2BBgaa2 11TIB7MPycTbiwISqyEGOa bmNvbnRccGduZGVjXHBsYW luXHBsYWluXGYwXGZzMjRc lEukqTcxwY7sDxVaLqGpLA uaPR6hMAZdI5edvQBhVTQk NTCtY7jbEdBcwN7uoSaqLY kuhdKcQF4XL1K3RDJdyuJ2 RLVdZlM5DuozBFLuMSwcZD EgeDJccGFyfQ== CLINICAL HISTORY (test z9hmsWFdPDFwuIZoUmFhYF code = 3356) PbREBro5rnMVRajOWxVrYo MzNcZnRuYmpcdWMxXGRlZm Gce5awt539pLUcm1okAFPr RmN7vYGiPJQdxYWcU640f6 yrs4ndweQjmZG8HBXeTLN8 KFmlgmFrdiX7HYltgXHrAr H3XDetdlSvUOfjxfIztpGv Edd7BBKlS384QYN8rJtnf7 dsMKJ6KYKqLBUdYtFwUu2s dSCpD690QROaADOVIARdqU l2NHJrklRiecIwtQZQz995 W917i6ueSSVoffTvnOwRbe mbl5viU994RZYrfIGugpJu JwYiAWWvlSVfcAF3OUWaAI 9dfjlvNwMdYA6ctdwbTpEw XI7vxir1XvBiSQ1paiwtOt IwOHtsRVKwkedlVZOso0Jg cuwpBB1eG6Apo8G7qW2hqM MpOUNqpUYpFhQeWULqad7l eJRaAQtbw6IkYBR1jhL2yL OnzFGoKAMoWQ95Wicvw9Pr BhafGEG2TPHfevSty6Fxl3 dzKeFsgyPtT1ptK0ZgLTRy QWQfAHZiBhWaefNcw9Qhx0 LkaAJsfTi9i1siFMAdGJMw wKcyw8odPLM2DKCzM6J4nL Jbl4xiYDewWRPrrPE1nwik RNhmRGKpbiR4tondIEeqER DgzHV1jkzwKVorIXAiEoZ8 xxjzYKgyVEDjOYP2OPegw7 05ZDY2CYbdWmkqYZuwUXFg bmNvbnRccGduZGVjXHBsYW luXHBsYWluXGYwXGZzMjRc kGdelTobrJ7zPkGkBjMqRG faOT7xEKCqA7eqcDTtEQYl XXFzR8rqPqIhmH1kiIzbIQ kwtsItMO9flUUfeJpuxDj8 aCTic1PpnDRyqLM1bDjeoC W5SQMiqmEybBdzpIgaJROj h1FnBaitUWEaxiQvIBPqNB RccGFyfQ== SPECIMEN SOURCE (test f1zeaVKvCSUedFYbZlSjPY code = 3377) UiERLmk3quYQFkgVSdXlVp MzNcZnRuYmpcdWMxXGRlZm Byq8eag698zEXiy6orFVOp YeH5qXFoDGXbwUKaI016f4 sin3mcuhGlgWR7CEPaEXU9 ZXopjaNldpF8ZSmgvPSaWt Y7GQhifoHiUPhqhfMvkqCi Hpp1FDWnA662CTW0iFmui4 fzTUS1OCKyIHMrKfCzWf9x wKWqW713RQZtKGAKGNLyaJ g6UXPbnoPddlAqaSOFk166 N652n4bgQMAikjPnfYiWhv zel6knS561NHYowWShnbKb XqTgATIroZMrwTK4IGDgCH 1viauuLdTgOP8zwdujIgNj OB4pdao1NeRaHR7yukttMd YvQJjoEHDamaodRDHgo6Yr ihnrTA6cA5Zso4D6eX0qnT NbUOFjlXLzGpRlLNHzig8q tVOlSHvhb1ReOBR9rcG5mR PmaKUfEBFkPU61Ierit7Zu BopfISD3LBSaxuLmt2Iud8 ibWzQvskQxK0oyH5WoCESg QUZpLHLaSyRiwiAlg6Wvn5 NovFAmhPa0z2auYJDvNEOy wBmnu2dnFIC2SBEhQ7I5kG Njs9wvEOftWQXejUE4ihbh ISlkYBAegeV9uufoBWtiXZ EpjZP6qzzfDDotMIMdHwN6 vcdiNUtzIMFxUOO8XXdsu8 61FZC4CLkpBkskXJhtMGLv bmNvbnRccGduZGVjXHBsYW luXHBsYWluXGYwXGZzMjRc bCyujQdstU2vJbSbWtPrHP soNT0hUIPoG0jcnKJdTJKd UQYeN2esDhGugA7nbYvoQJ xmczIwIEEuIExlZnQgNXRo NEFba8oasNFiMDFyNDiyrg apGGXxDMmsAwGwGGExHT3g wSZ8VUDlDFloLTWbxh2= GROSS DESCRIPTION (test u0uscLPeGMZdpLDyXrKxZM code = 3366) BzEHRll0ixKSKiiNMsDfLt MzNcZnRuYmpcdWMxXGRlZm Xfm2frr400dXDlk2ykNCUt JxJ9fCXqKQIuxDTyF821PD LtTTvmk4yst3LtPOTvgQRy c1W6ERAZngptqGw3cVcfZ1 0vg4Y8PkuxP5cwQOWqZXOy B6GkJY8tHFEfTml3ZZD3WH U8DTPmDEGmF8UyOS0cUYXg bFUjRAn9l4jpoIuoMAIlKE S1n2zmAVdbsoExWL0lkq0b rUo3w9afqqGcQZBfDCHaiQ BZXGNyZ5BsgEdmEb6byVn0 jUwcHmhqNQJ2Ctu0GI3eju 00svn6oSttELRiydbtFrA5 SLpqLBPaxihpOHd8KTpeCU JnbDcyMFxtYXJncjcyMFxt YXJndDcyMFxtYXJnYjcyMF exXREqFDU0RMzhb273PNV2 YVlzj1ifh1balIMkPrt5PA VqGtDiRpplBIgkz4Zac7nc OGRrcw0zRDU0jRFmbTxle6 G7kFBxVOSdzIGjazMkBGVd EaB7UQryGX1zgs99IHZcPN T5ot5hnUCvfDqlytYvcAJq XAarJ4RvLEWgf100HMLzP4 LsCCFah4K9oePgFeYfUSYe sZE5dcK1ZDKhVGq5wDWemm B7vnNqmMEhK9zkxP19KfKl yNNkP3QyyM97OsQthUUfC4 RwrT40RvJrbNKxB1KoiV32 HtMtnQZtOWFtgHRtMp7ylL EnbKGra8WrwYYhNYyvJ27u h600UMBcncYrF9qeaRRhvq rngTCjubjhKRhldfM7YVKc XHBsYWluXGYwXGZzMjBcbG FuZzEwMzNcaGljaFxmMFxk OjPrWWHbFHdaT7nlUeXlMn VlAOILnOMlfN4xhbXYTChg TZToM1MndkGsVUytTYHnfJ V6gWFpRCpoZuSjHKDzn5s0 eYP3pQIhjHD6uFLbkVykCF 5miLWmCT4fNG5nXJquCIcx alEvg3FvSR67rMDttvRcek QgZGVzaWduYXRlZCBhcyAi b54flRA3aTGynAAxYQ12jC XkBkbzU63qo3jclXWzt6Nx o4ijyEKzzNXkzD14UJCviq ZkOyZqE64vsaSxYG8qYHZ1 cmluZyAwLjcgeCAwLjMgeC SrSvSuW06ePFAnZCXirNCo vJ2ucqWexiLsdWQvyLH0HR ObTG59lPYgvRmysJ93ysVS QBUbbjDfnA87xnVoKFPywT Epx5d6kBrald6oeHOcJOCy smRPoAVhvM4fujDPEFmdNZ LfR6NtfhFmWRoiOOFxgQS5 uSAzMYclKzAeBGYrv7g8kC C5wFLcnRM1nQFnjKcoEO6n cNCeGE4mUS7nJTjoYStiuw Vkw2KtVW17gKNuwhMywbWv ZGVzaWduYXRlZCBhcyAibW P7FLTaubYiwWUpIIZ9Yjem W57px7eerVKvl6NiRv86ga XrIKAmYbPvu69poGdnk0Xh IFNdFZEyy16aUHIqUBqrGQ 95heRxHDMakEOjdghwQz1l WScoJI55WTsgNK99YZRfWO szBHLeK2YdG4V6TE8wjPhx IHNwZWNpbWVuIGlzIGVudG jwDTb8LLeooGCzrzyzDIou czIwXGxhbmcxMDMzXGhpY2 vvOwFlNCYmnEizBOswt3Jk HSXjIPHeYkDaGgPkMY0kLT ftnT8tPQNdADxje56qlZBr h12aKMQjGPemTQTzOWGgNw BcbGFuZzEwMzNcaGljaFxm KFdxRuFnSYQdXEdjR9jhEs BcZnMyMCAgTUcvZXdccGFy fQ== MICROSCOPIC DESCRIPTION q4uelQNqFWUckREnMqBfJV (test code = 3371) AhIDNzl4ctVSOcuGPmUuZp MzNcZnRuYmpcdWMxXGRlZm Dnj8aji332nPSlc6dqZWHn IiV9dUGdVBUpiQMdZ199r2 bse4qaybGpfCL1JSMeOPL4 PNmhkwGwmqW6BGythRHrJe M8EGkhpiUqPLznnrWgdcBe Nfb7TLMlD625AHZ7eAarf6 xzCCY2NEMyKQBkGcStRe6z wBDpK942TKErQMCXFXRkbK g5MTIhjsDkfuNzgOKPu944 T003w6lwUBZtxnHdnCmFdt vjj2wrD013BINogQPljxDl VuAnWRGthCJjxLH3EFYvKN 7ovkooAiFnFS6joavbXyWt AM4ylrg6MhVyGI1xycjaNg ApKVhqNATsklvvOMEjk2Xs paqsFT7xH9Nks0U2iG9byZ TuNPDveDWzDeYkZKGydq9p fIEiYUuaz1IiMYQ9peC7qI OiaYLcALLzHK32Zemyw4Ql XqqcHXB4YTMajlZub2Dsw0 bgKhYzcyFiG1rmR7KkDJEx MHUpSHLxMnXulxLsa6Goz8 FsrANreEw7e0naVKUbXJAw xPptx4bjYNZ8CKVyY8B5gD Edb8toCCmdLZHgbVJ0qydu CFrgEKIvxiZ4guduLOmyFG FkkMZ4rbiwTMyzUHPaYyM4 milfNSvhECZhUJR6NXsnb6 18UFJ8GPmbXqkwVTwoYNPu bmNvbnRccGduZGVjXHBsYW luXHBsYWluXGYwXGZzMjRc aQqgtJuciB2oBtSwUuOuCQ jeOF9nCRGiK3lseUHqZTVf EZFjV6hwEiUnsJ2bkJcfQI tujkGgHJCpLy7fSYPfRa7a bWVkLlxwYXJ9 Gross assessment was [facility] [place] performed at ([facility], Department = 2777) of Pathology, [address] [place] [id number], Technical component was [facility] performed at ([facility], = 2778) Department of Pathology, [address] [place] [id number], Professional component [facility] [place] was performed at ([facility], Department code = 2779) of Pathology, [address] [place] [address], [facility] [id number] 10:21:00 Test Item Value Reference Range Interpretation Comments Case Report (test code Surgical Pathology = 104) Report Case: [id number] Authorizing Provider: Tala Santacruz DPM Collected: 12/30/2019 01:38 PM Ordering Location: [address] Med/Surg Received: 12/31/2019 06:52 AM Pathologist: Jovita Griffith MD Specimens: A) - Soft Tissue, Other, left 5th proximal phalanx B) - Metatarsal, Left, left 5th metatarsal DIAGNOSIS (test code = [id number] 3220) FuZzEwMzNcZnRuYmpcdWMx XFpjpxByWVaqn6VmF5TsOy AwMFxhbnNpXGRlZmxhbmcx JENfDJZ9ycZlIZGfSCroMO IbFDllGn4rfZQjrBbzCeHy YKKwg2uiioTAisfqsRd0g4 nhVFVvJuI4dDSoYIlzC2fz kwQvgICdPDLmBRo4wK61PE ZqrS3xbULhCIjxpkLvBwJ8 RMqjBIYgGcW4NUKxfGOpZK JtT6vuJEUtBQozXTWzFJdj kORhBHU4jKoip7K1oAQneO ZilIcwSpYiXrMjNCRKf5Uw HDb7uXqtQ2ZoBKOlDxH9wB QgUGFyYWdyYXBoIEZvbnQ7 xK11QIxwfrH7lVZxw3Dyd1 9nn757kO7lnOEqUDN0JVQh XIGskIBkUIGqCCU6KTAmbH LdS1y9DkAkhAQyA7R9ToSp tNLjJ1N6PeHfsYVdM2G4Kn CywPZtCMTczBFzUn4hhKQh tSSleq0ksn32BZZ9o5RlkT tmPTQ6WPM1WmEhTg7ckFQp YDYzAB3iVpDqqAQhHNGlrn 29jFhsKCwcavFnxK6vFnNx KTGzxCEkGPHhBJ4nfOFxYD NgwO2lmwbrNBCwRpCojzed NNUxvUubwhHnJo0mlTkoRL I1VYahY0tcwR6oGlL8VAjo I0fncU3yKJr9TIdbrQP5TS OlfZ5vAK1behokt2wdHwRj RE4arswdc8soEyPyLH6fnn p4u3dfVjRfKX3eiyntn6kj NzIwXGhlYWRlcnkwXGZvb3 DbwtrdDZAwk8ZpI0AmeYyt H89opOndM56gCSSmgIcfdK 2rpWgxtT1pUhYuJcXcDWyu bFxwbGFpblxmMVxmczIwXG efjennNVRvBWdvY3wmSyFe NIEmgSveTRpew1WsVMSdXV IfEiZcYQ5nGn9DEGkkWKUH KYEGYQRZRRSOKz3EML6PLE NXRAUXLZ8KAXRFHD0CG8d0 LFKiqfWzDJKaOGIRLJ8gK5 jNABWONjMIImzGMQ6ZVMNU UlRJTEFHRSBXSVRIIFNVUl KNRG1XKY6QLZMJXKGNTVHU RCBDSFJPTklDIElORkxBTU 1BVElPTlxwYXJccGFyIEIu IEJPTkUsIExFRlQgRklGVE ggTUVUQVRBUlNBTCwgQklP UFNZOlxwYXIgICAgLSBBQ1 FDDBMKW9MZT62UXFnQYAvD IFxwYXIgICAgLSBTRVBBUk ISRNKLYrQOXFZULXYdN0Ag TnzCCn7JI33SIPCAKZBAWG UQO4WZMHSFMANKKRFYH9EY L3TnNO5QD7JVC4bLFOGRRG BHUkFOVUxBVElPTiBUSVNT XPDvQn7FMFPRAF4AIRGrvo 64SNZ4OwOst2I8PQM5NLBh PDBkl3ngUQVpvARmLzVvDt NcZnRuYmpcdWMxXGRlZmYw z0cqe164mBAho9bqDLBwSk N7sMHvPGSylQXiA469EAHn XPtha0yqw5VyIHPxkMQdh8 K6JXWCivfdnDp2lOgeK56a e2J4XsltG9jyGCMxHSSkR2 RuSW8jJWNnWnd0FXL6QBX0 JJNpIASrS9AcNC8fMQDncY QjJUh4g4lskOkjJURlEOG7 r3vvIDhhigQvUM1pgh7zdJ i5z8daysDrBDBePJJkdKUN PVVaL6ArpLdmSj1ewDj7wV klYvraWJM4Ecf3QY7coc76 jyn3kJqaTOUquhodAuG9YV vdOVBlyqclNVd5MHavUFGt iHF9UUQssYCoQ6GmOHIpKB 7jawj9TQX7LHrbYGSfRpH8 NDBcaGVhZGVyeTcyMFxmb2 58UKW2SlTpFF3eI3Kig6L0 tG7ziXAuLJQeeZGtTwBmOS Ryqq9mtRZeGUuke4CnNSL2 swF9eWSgvZJfUBBrYhI0GS cqUA6uqd60JGDlXJU5ow5l bGNccGdicmRyaGVhZFxwZ2 DaZJRhm700MHBbF0PrIIZs c0K8wmIjBmArZMMrbCR9ty Y5XYYvLU3wtbesu2vjZLtj GWweXWNwyuI2noK7SJZdaG HnE8VfmG6oEQJcRU4kjjsc k8aoRBE5HAecLNMaSRE9Mh BpHIBik4Mvlol0HuGpa6Oc mUCtINceC57hg566KOUatf ZyR7ideEHaelrzzGVfexnf JQmwpgW2DTIfSYqhjhgwPX EaCQcaI9fzMpGrQXLgnWrd GLpkz5SkUUPvWKIlBdUlkD ZcHZMhAmu2KLXltCLkJSUf FqQdP3dipvdoHjGKLKXxh9 dpC1hfjUBOhUQsU0BdQWjy orQnYTokCCqrPDN0LKO3Vb 36GtX4DELbdt67 CPT Code(s) (test code k5iapFDaANQjdHWiGlZwMU = 3357) TmBRQcp7zpUSGpaCDsSvFz MzNcZnRuYmpcdWMxXGRlZm Kbd8myv644vBPoz1txUHXi HpS2jXPlGUMjbORaZ229c3 spo1rvwiRgeKL7DUJcYDE5 HYcbojCuuxB6LYvaoFFvGd K9UMksmiUnURrmrpRmdgDl Jmg1GQQxZ638YHX1zJahd3 whZPQ4WVRtPLYdDoYsXo6u kHZiR685PNYqIALIPYJfkH d7LLTtopIcvrZlsFPEp669 E716x2kpDSBbzmWzfMeLce nhy0svY556VQAudAEdrbKb QtIdJJYupUAyhTH4FQGgXH 3qhrmoSvAxYP1csfoyRoZj LA4iqii8MhSlME0chykoJm IyOEpaAZAvuaxfMQSht1Yf gcrlGP3lF8Kcd1H9fJ7xnA GgKOWzvTKwPvXkORCwsi6t yZUfHJrtb7DsRAW9trL8zX JftJPmUQFxVN90Yrkyg5Ud GxjjFHW1AEEwrqKgk5Zgn1 cmSsTgswAyM9umD1DhRIZa BPWaIGEfAhAaubKca4Gnd8 EjeBAwyKl2g9exQCByGPWk hWszy5vcBEW1IEVtP3H1uK Ceg5zgJBpeMEKwyKM8ejks SOdnLMWkfxW8tsvrMPmdYN SekPL0xxymLAjgTSRfImL0 qhqlFOsoOWQhAVR4KDdhx7 84TWI2ZByzQsubTKyaQTGs bmNvbnRccGduZGVjXHBsYW luXHBsYWluXGYwXGZzMjRc kCndqOzzuP1oElOqPrLxWV ckBB1xAIMiR8dvmGOmQEJy AYIbP1uoTxTgcM5niHfvOK apssWkPF4RC1K6FRZtcvV1 RQSqNtC9FjonQGCfPEntQP EgeDJccGFyfQ== CLINICAL HISTORY (test x3mtaFGvDNJziNUfCoRoRZ code = 3356) XdCKVbx1psQKIjoICzMpXh MzNcZnRuYmpcdWMxXGRlZm Pus3lhk536wKPij2ofMPIr EeL8cEHzEGTjkNDpJ357x9 qik9pgguKksXY6DPSkEOY6 YDzetcSgkiK9MBonoUCfLq M0EUgrluGcNNmxeoShsvJq Ssb8ZLTnR033IUO2uUigz6 gwROO0OBUwXSDnTzEdTy4i wIJyK825YHLoJKPIHKBqvZ o4SQVtscGqodRjkKSXr578 D872b0bjDJJbshLlzJjMjr dbx5wqP241WCTblUFjjzNq CeCoVOIcyOMntLJ6YQAjAZ 7idblwOqPfIW3hzdrxLcKn IJ8vtnu8JhWgAI6tsrioRw UtQWfsDTLulgygHHMuu0Ic qyxaVC2zM4Jjn5B2lE1pyV UxRGCpqKQhFmCcKYNyia9n eULdHRsus8BkQWP7phS7pC XzcHSlKOBlXG76Jevww1Tl BqsjFRS4WZZoeeWna0Kcm6 ibVlYkduKhZ7huQ5VkNBZj GBLzHQDcMkFjfeGde4Qbh7 KhqYKxhIe6y1nbZAQiWMSf lWhij2uyNGF9XSXvP4D6vA Zpk7ojKDwdOZMwdXU9qoma YJlzOIUwitF5tlpxIKtaXA YimBA6osroYPcrIOElJpK9 llqbHFqpPXQxWBB8YEtrh4 74QBG5OHsjGjrcIHviXUUy bmNvbnRccGduZGVjXHBsYW luXHBsYWluXGYwXGZzMjRc ePnrzTmmzT6kJjJcMeLuTX cuUW2eQYGaW0ugnMOfZYNx DTAmK5liSkTymO9nxOzzUQ uwqeKdWZ2nfUWetXtyrWj3 kSVul2YmaJVeiVZ7xXilpT M9RWSevqArtKnbxOdgFWPm s4OaVevjTMBnrtGoLHPdIR RccGFyfQ== SPECIMEN SOURCE (test v2qbwUAiCKDufWRiMwQePQ code = 3377) OdMVOsl9gbPHIhlWVmUdGs MzNcZnRuYmpcdWMxXGRlZm Tep9wmg761aNPzp4adQGWe KfO6mJYzJHVbcDAeT802q0 xvf6expqZsgXF2DYWyHMQ7 TFmuxuImguJ4PAifyJTnXc X4GZlftbZrUBapuvBfdvFp Prg5FFYwX515ODK5wAjms1 edLDW0GQAaXTMoKtZtUk0e pQQmF854KJZmIKCIPVZeyT f9EQYqebMrmxAqeUCWi207 T384n7rjAVYcneMwiAiWte twy4niS392BGJmlLFupnVt YjLaXVHwyHFxjXV7IVLcYZ 5ufzopBoTgBT5xntiaKpKi IL3fvrq9IhCvCK0dwbtkZf XiVTicNYHtirfdSFCek2Pa ythzDJ6xK9Utu4H3zT7ayP TsOPDmwPUxOwPzBAKwsu5t zYJzYCovk0GyKJJ9hnQ2aG EilBTzUANwLI84Qomgi6Qd EhqoKTK2IHQzbmIql8Fnv5 ubHtHhwgIfY9vlW0DxKLGf DNRqDKAqZeSqpxZuu2Anp5 BluEBatEh2u8ruTRHbJTFv wXteb1fgRKS1IBWlP0Q0oI Egg8epAOthGLVuxNZ5amvj GJmbQQOwmyH7idumBPphBP ZsyUC7ilrpXKnvQMPtNyJ8 vnlbXPppDXIdKLT4GYvrx7 03MXH3CMykOfwaEJzoLLPt bmNvbnRccGduZGVjXHBsYW luXHBsYWluXGYwXGZzMjRc dKfuiSrdsG8wCjRmUuFfED zbUK7zNLXxF8nufWPuAZYw OEKaH2xjByRvaU5geYifOT xmczIwIEEuIExlZnQgNXRo BCSst1bgzFDjWPAaQCbqie zbHLLmXPrbPjOeCGZdLN3x nKX0SVIjXFnpLTAofe4= GROSS DESCRIPTION (test e3yglXJpKLNgmKZcBfZzTD code = 3366) IeALTkh2kzXARawIGiSvUd MzNcZnRuYmpcdWMxXGRlZm Cgl5mkk264mEIvd5okPMIx FdB4yJSkKNYccCBjD659ND QmUOzjl5ppu9GvQGZjyBIp y5R0RZYMmtztpVd0wTbhB6 9mb5I6ZsvyE0zlPKQxOVPz U0RcBD4yXAQeZie4HDY3GQ K8DUXpICLoX3McCE1eRIJt aIZlGJl7w1kcdTirPNYrNZ K1i0tpDCuscmGbJG5rtg9w yAb2a5jgtkHpTMEdPOVggY WCVSZvB7YilDjgKk3poAp3 cOurRwvjVKC3Jcc7LK7ilo 72bpo0kSxrZELdjwiwDxU9 KKbmIISgmqzkCYb2IZvsKW JnbDcyMFxtYXJncjcyMFxt YXJndDcyMFxtYXJnYjcyMF juOTHlRYW4MJwrz228INI5 BNpoo8lle8fbyGNgOuf5ON CgMlUfVlpxOEmig2Bnp6zd XDEzrk6rAIY3dGUacCzxq5 X2uFJeDVCowANessOdBWJd HtB6JOpbZI2vmx79KWMkVH X0hb7xwDJbtOlvejGpwVMp YKxvF4DgTKCmh136IERbA2 UcTSPkz8O2xgWdHlEeBCJx yPU9tvR0REOsUAc6bYTsht L3vcPurXVfQ1cxfC96GoHs qQRtM5AukP66HsMbdCHiL3 PqqG40LfJjfILaB5ZezK47 LmTsqSLkGMYsdXNfKl3rfE JliQXqo6YvsRBkGZfpX74j i838VMCeuiOgL5tiiSQfml ehyJNhfgjbBSqcyuD6XCDx XHBsYWluXGYwXGZzMjBcbG FuZzEwMzNcaGljaFxmMFxk DxGvARLyAAbiA6jdGdEqYw IdDRMSqZYjpD5iidORWBvu PZMeQ6HefuBnHVyxIBIrsY N6pMScBGxyUgGqZWFyt5z7 bHJ7pTDopYW5hUBmpWaaDR 0feXAzET0uYC4oFRobCEtx bdKvm1KySZ21mXMxjcDnld QgZGVzaWduYXRlZCBhcyAi a48gzJV0wYCeaTPeVI38yX FiAwkmQ31qv4mdkSClj7Wp p0sdzIEodPXhlF77ZMOrql LmVnMpX18tkkNhUO5fNMR1 cmluZyAwLjcgeCAwLjMgeC HkLoZsL56iTGYaVWOdnVVx bO3bpqTkouFeeXIjfEA0FI WnOP76rQLpfQgygX23dhTU REWnkoVelT57jpRpYFDxjK Alg5r8qWcyqq5pzZGpHWYe nqCPwYWhwX8grsCJTWzlZM BrO0HeulLaOGwwXKRxwUX7 sFKhLGsiDqOfMHBbk2u2jD L8xXFjqWH2yFJkzHgjNQ1t tJJbJQ2uFN0oJNbjXHxsas Gfk3YzTS02mVLasjVepmAr ZGVzaWduYXRlZCBhcyAibW A7CDGwllHvbLZwYVG0Ywvm X30gk5bdnXFaj3HvCz35rr KfVPSyQsGax57nhIbyq7Lv RJZoGNHla10uKMXgLWckMJ 02fuRrSULmxPDthsufVf5u MObnLD38LNqwPY00KJXzPM fnWWUnW6IbU0V3KA7ifCsv IHNwZWNpbWVuIGlzIGVudG dyZHb1KJjzlVWbfpzdGOas czIwXGxhbmcxMDMzXGhpY2 oaPyFgLVLquEqySWqcr8Lx GCOyZWBwPnWgWoCrXR8qXC lswT0uKZQoWMqpq38vbPYy p57cAQOlYNtqYJYuQZZhXk BcbGFuZzEwMzNcaGljaFxm DWyqChDiEMXxXDjsX1vlOy BcZnMyMCAgTUcvZXdccGFy fQ== MICROSCOPIC DESCRIPTION x2gyvOYsUMVcbEHnFwRcKB (test code = 3371) GfZNRfo2heVYZpdNIzGxYp MzNcZnRuYmpcdWMxXGRlZm Ezo3ddg769bDEjj3jqMHZc LeS3nHHiYBGljLRnB758e3 vpc2gbrgZqfFU1SLCrGEL8 CYygjxBkdiG0CNjsvKGaUp J3XKgowxXkLWdbefEyttDg Rux8ADAhH299TPU2cLqmx1 ltWUX8DKKkRNAuLtPxFc6u kBBdX376WIWcWFITDWLbxT c0NTFjyxSpxsBwkQZGi775 Q588o3duVUNkozLckVxJso liz2ptZ898LYLpcIDocfMr MjFtQJDcbWUrpED6UGLsFB 5dslukSaKyAT7wionjBlMu MM8owai5CeTcYL9tptwcKc JwLRqtVGBbazhoPMFkl3Gr mhipTQ1fA5Iyq2Y6jP8lzC CoBBMglYYgGbRgJLNsiq0k qOWdFUtdd2AnEUJ2kmQ2qX BcwTAyKWYtTR53Yshwe2Lj VwleYAV6YPBvtbTyj5Cne8 mjAzKrcgScT9blM6PoJXJl KVUrFIBsVhTtwcJtj1Wmg1 PtoIEewBk3r2wlPAPwKHWn xCbuc6ylQWS4NNEeL9X3nY Uxk0giYCcpBPJzfRD5zkgx EZlxRJLfpqN1wwjhRPsgOW LrcKF9brxfGBwvVNOsKvF6 znslCScxNXUgHLT8NVzwo5 54ATP9CIroCyjfORadQCWg bmNvbnRccGduZGVjXHBsYW luXHBsYWluXGYwXGZzMjRc oVylhJxdeN2uEcVnFcCvRF ozAC9eXBPmE9mfqKDsARKt ZYKgD7onLjDtpM7oiFnqMT tumnNmMKFkLg0yIOXqAr4k bWVkLlxwYXJ9 Gross assessment was . [facility] [place] performed at ([facility], Department = 2777) of Pathology, [address] [place] [address], Technical component was [facility]' performed at ([facility], = 2778) Department of Pathology, [address] [place] [address], Professional component [facility] [place] was performed at ([facility], Department code = 2779) of Pathology, [address] [place] [address], [facility] [id number] 10:21:00Surgical Pathology Report Case: [id number] Authorizing Provider: Tala Santacruz DPM Collected: 12/30/2019 01:38 PM Ordering Location: [address] Med/Surg Received: 12/31/2019 06:52 AM Pathologist: [...] TISSUE FORMATION Signing Pathologist Direct Phone Line: [phone] signed by Jovita Griffith MD on 01/04/2020 at 10:21 AMMG/[id number] [id number] of left 5th metatarsal, ulcer of bilateral [...] entirely B1 and into decal solution. MG/Veronica-B. Performed.[facility], Department of Pathology, [address] [place] [address], [facility], Department of Pathology, [address] [place] [address], [facility], [facility] of [facility]ology, [address] [place] [address], ACRPFPQWD [id number] 10:47:00 Test Item Value Reference Interpretation Comments [...] negative Staphylococcus SURGICALLY OBTAINED CULTURE + GRAM [id number] 08:31:00 Test Item Value Reference Range Interpretation Comments CULTURE (BEAKER) (test code No growth = 1095) GRAM STAIN RESULT (BEAKER) <1+ WBCs (test code = 1123) GRAM STAIN RESULT (BEAKER) No organisms seen (test code = 00489) SURGICALLY OBTAINED CULTURE + GRAM [id number] 08:19:00 Test Item Value Reference Interpretation Comments Range CULTURE (BEAKER) STENOTROPHOMONAS A 2+ Sten otrophomonas (test code = 1095) MALTOPHILIA maltophil ia Levofloxacin (test S code = 22) Trimethoprim + S Sulfamethoxazole (test code = 47) GRAM STAIN RESULT <1+ WBCs (BEAKER) (test code = 1123) GRAM STAIN RESULT No organisms seen (BEAKER) (test code = 992454) POC-Glucose [id number] 06:47:00 Test Item Value Reference Range Interpretation Comments POC-Glucose Meter (test 102 mg/dL 70-110 : TE STED AT SLSL code = 1538) [facility] [place] [address]: Night Time Nanny/Techni artemio ID = [id number] for Brown, Anne Lab Interpretation (test Normal code = 85300-2) [facility]-Glucose [id number] 06:47:00 Test Item Value Reference Range Interpretation Comments POC-Glucose Meter (test 102 mg/dL 70-110 : TE STED AT SLSL code = 1538) [facility] [place] 804668: Night Time Nanny/Techni artemio ID = [id number] for Brown, Anne Lab Interpretation (test Normal code = 34358-5) [facility] [id number] 06:47:00 Test Item Value Reference Range Interpretation Comments POC-GLUCOSE METER 102 mg/dL 70-110 : TESTED A T [facility] [address]17 (BEAKER) (test code [address], = 1538) [facility] [place] [address]: Night Time Nanny/Techni artemio ID = [id number] for Anne Busby Comprehensive metabolic [id number] 06:34:00 Test Item Value Reference Range Interpretation Comments Protein, Total (test 6.1 See_Comment [Autom ated code = 2885-2) message] The system which generated this result transmit merna reference range : 6.0 - 8.5 gm/dL . The reference range was not u sed to interpret th is result as normal/abnormal . Albumin (test code = 2.3 g/dL 3.5-5 L 12333-6) Alkaline Phosphatase 81 U/L 30-115 (test code = 6768-6) Total Bilirubin (test 0.4 mg/dL 0.1-1.2 code = 1975-2) Sodium (test code = 137 meq/L 586-554 1545-2) Potassium (test code 3.7 meq/L 3.6-5.5 = 2823-3) Chloride (test code = 100 meq/L 98-106 2075-0) CO2 (test code = 28 meq/L 20-29 2028-9) BUN (test code = 14 mg/dL 10-26 3094-0) Creatinine (test code 2.31 mg/dL 0.5-1.2 H = 2160-0) Glucose (test code = 100 mg/dL 70-110 2345-7) Calcium (test code = 7.5 mg/dL 8.5-10.5 L 38374-6) AST (test code = 15 U/L 5-40 1920-8) ALT (test code = 6 U/L 5-50 1742-6) EGFR (test code = 21 mL/min/1.73 [place] [address]-6) NOT ACCURATE CREATININE CLEARANCE IN PREDICTING GLOMERULAR FILTRATION RATE . ESTIMATED GFR I S NOT APPLICABLE FOR DIALYSIS PATIEN TSAlfred ZIA (test code = ZIA) Night Time Nanny ID - ADMIN Lab Interpretation Abnormal (test code = 13446-8) [facility] [id number] 06:34:00 Test Item Value Reference Range Interpretation Comments Protein, Total (test 6.1 See_Comment [Autom ated code = 2885-2) message] The system which generated this result transmit merna reference range : 6.0 - 8.5 gm/dL . The reference range was not u sed to interpret th is result as normal/abnormal . Albumin (test code = 2.3 g/dL 3.5-5 L 60134-9) Alkaline Phosphatase 81 U/L 30-115 (test code = 6768-6) Total Bilirubin (test 0.4 mg/dL 0.1-1.2 code = 1975-2) Sodium (test code = 137 meq/L 704-523 4552-2) Potassium (test code 3.7 meq/L 3.6-5.5 = 2823-3) Chloride (test code = 100 meq/L 98-106 2075-0) CO2 (test code = 28 meq/L 20-29 2028-9) BUN (test code = 14 mg/dL 10-26 3094-0) Creatinine (test code 2.31 mg/dL 0.5-1.2 H = 2160-0) Glucose (test code = 100 mg/dL 70-110 2345-7) Calcium (test code = 7.5 mg/dL 8.5-10.5 L 30444-8) AST (test code = 15 U/L 5-40 1920-8) ALT (test code = 6 U/L 5-50 1742-6) EGFR (test code = 21 mL/min/1.73 [place] [address]-6) NOT ACCURATE CREATININE CLEARANCE IN PREDICTING GLOMERULAR FILTRATION RATE . ESTIMATED GFR I S NOT APPLICABLE FOR DIALYSIS PATIEN TS. ZIA (test code = ZIA) Night Time Nanny ID - ADMIN Lab Interpretation Abnormal (test code = 68453-2) [facility] [id number] 06:34:00 Test Item Value Reference Range Interpretation [...] S NOT APPLICABLE FOR DIALYSIS PATIEN TS. Night Time Nanny ID - ADMINCBC with platelet count + automated [id number] 06:06:00 Test Item Value Reference Range Interpretation Comments WBC (test code = 6690-2) 5.7 See_Comment [A utomated message] The system [employer] generated this result transmitted ref erence range: 4.0 - 10 .0 K/L. The refe rence range was not u sed to interpret this result as normal/abnor mal. RBC (test code = 789-8) 2.41 See_Comment L [Au tomated message] The system [employer] generated this result transmitted ref erence range: 4.00 - 5 .00 M/L. The refe rence range was not u sed to interpret this result as normal/abnor mal. MCHC (test code = 786-4) 30.8 See_Comment L [A utomated message] The system [employer] generated this result transmitted ref erence range: [...] L [Aut omated message] 777-3) The system [employer] generated this result transmitted ref erence range: 150 - 43 0 K/CU MM. The referen ce range was not u sed to interpret this result as normal/abnor mal. MPV (test code = 10.5 fL 6-11.5 83355-2) nRBC (test code = 413) 0 See_Comment [Aut omated message] The system [employer] generated this result transmitted ref erence range: [...] See_Comment [Aut omated message] 670) The system [employer] generated this result transmitted ref erence range: 1.80 - 8 .00 K/L. The refe rence range was not u sed to interpret this result as normal/abnor mal. # Lymphs (test code = 1.66 See_Comment [Auto mated message] 414) The system [employer] generated this result transmitted ref erence range: 1.48 - 4 .50 K/L. The refe rence range was not u sed to interpret this result as normal/abnor mal. # Monos (test code = 0.28 See_Comment [Autom ated message] 415) The system [employer] generated this result transmitted ref erence range: 0.00 - 1 .30 K/L. The refe rence range was not u sed to interpret this result as normal/abnor mal. # Eos (test code = 416) 0.12 See_Comment [Au tomated message] The system [employer] generated this result transmitted ref erence range: 0.00 - 0 .50 K/L. The refe rence range was not u sed to interpret this result as normal/abnor mal. # Baso (test code = 417) 0.07 See_Comment [A utomated message] The system [employer] generated this result transmitted ref erence range: 0.00 - 0 .20 K/L. The refe rence range was not u sed to interpret this result as normal/abnor mal. Immature 0 % 0-0 Granulocytes-Relative (test code = 2801) Lab Interpretation (test Abnormal code = 21319-4) [facility] with platelet count + automated [id number] 06:06:00 Test Item Value Reference Range Interpretation Comments WBC (test code = 6690-2) 5.7 See_Comment [A utomated message] The system [employer] generated this result transmitted ref erence range: 4.0 - 10 .0 K/L. The refe rence range was not u sed to interpret this result as normal/abnor mal. RBC (test code = 789-8) 2.41 See_Comment L [Au tomated message] The system [employer] generated this result transmitted ref erence range: 4.00 - 5 .00 M/L. The refe rence range was not u sed to interpret this result as normal/abnor mal. MCHC (test code = 786-4) 30.8 See_Comment L [A utomated message] The system [employer] generated this result transmitted ref erence range: [...] L [Aut omated message] 777-3) The system [employer] generated this result transmitted ref erence range: 150 - 43 0 K/CU MM. The referen ce range was not u sed to interpret this result as normal/abnor mal. MPV (test code = 10.5 fL 6-11.5 71128-9) nRBC (test code = 413) 0 See_Comment [Aut omated message] The system [employer] generated this result transmitted ref erence range: [...] See_Comment [Aut omated message] 670) The system [employer] generated this result transmitted ref erence range: 1.80 - 8 .00 K/L. The refe rence range was not u sed to interpret this result as normal/abnor mal. # Lymphs (test code = 1.66 See_Comment [Auto mated message] 414) The system [employer] generated this result transmitted ref erence range: 1.48 - 4 .50 K/L. The refe rence range was not u sed to interpret this result as normal/abnor mal. # Monos (test code = 0.28 See_Comment [Autom ated message] 415) The system [employer] generated this result transmitted ref erence range: 0.00 - 1 .30 K/L. The refe rence range was not u sed to interpret this result as normal/abnor mal. # Eos (test code = 416) 0.12 See_Comment [Au tomated message] The system [employer] generated this result transmitted ref erence range: 0.00 - 0 .50 K/L. The refe rence range was not u sed to interpret this result as normal/abnor mal. # Baso (test code = 417) 0.07 See_Comment [A utomated message] The system [employer] generated this result transmitted ref erence range: 0.00 - 0 .20 K/L. The refe rence range was not u sed to interpret this result as normal/abnor mal. Immature 0 % 0-0 Granulocytes-Relative (test code = 2801) Lab Interpretation (test Abnormal code = 46155-8) [facility] W/PLT COUNT & AUTO [id number] 06:06:00 Test Item Value Reference Range Interpretation [...] PERCENT (BEAKER) (test code = 2801) POCT-GLUCOSE [id number] 21:02:00 Test Item Value Reference Range Interpretation Comments POC-GLUCOSE METER 167 mg/dL 70-110 H : TESTED A T [facility] [address] (BEAKER) (test code [facility] [address], = 1538) [place] [address]: Night Time Nanny/Techni artemio ID = [id number] for Ashley austin Anne POCT-GLUCOSE [id number] 18:12:00 Test Item Value Reference Range Interpretation Comments POC-GLUCOSE METER 121 mg/dL 70-110 H : TESTED A T [facility] [address] (BEAKER) (test code [facility] [address], = 1538) [place] [address]35838: Night Time Nanny/Techni artemio ID = [id number] for Cortney Cohen POCT-GLUCOSE [id number] 11:54:00 Test Item Value Reference Range Interpretation Comments POC-GLUCOSE METER 117 mg/dL 70-110 H : TESTED A T [facility] [address] (BEAKER) (test code [facility] [address], = 1538) [place] [address]: Night Time Nanny/Techni artemio ID = [id number] for Oneida ayala Ayinor COMPREHENSIVE METABOLIC [id number] 06:47:00 Test Item Value Reference Range Interpretation [...] S NOT APPLICABLE FOR DIALYSIS PATIEN TS. Night Time Nanny ID - [id number] 06:42:00 Test Item Value Reference Range Interpretation Comments Magnesium (test code = 1.6 mg/dL 1.5-3 57552-9) ZIA (test code = ZIA) Night Time Nanny ID - ADMIN Lab Interpretation (test Normal code = 32752-6) [facility] Hospital[facility]esium2020-10-02 06:42:00 Test Item Value Reference Range Interpretation Comments Magnesium (test code = 1.6 mg/dL 1.5-3 70081-3) ZIA (test code = ZIA) Night Time Nanny ID - ADMIN Lab Interpretation (test Normal code = 74520-1) [facility] [id number] 06:42:00 Test Item Value Reference Range Interpretation Comments POC-GLUCOSE METER 101 mg/dL 70-110 : TESTED A T [address] [address] (BEAKER) (test code [address], = 1538) [facility] [address]: Night Time Nanny/Techni artemio ID = [id number] for Anne Busby [id number] 06:42:00 Test Item Value Reference Range Interpretation Comments MAGNESIUM (BEAKER) (test code = 1.6 mg/dL 1.5-3.0 627) Night Time Nanny ID - ADMINCBC W/PLT COUNT & AUTO [id number] 06:37:00 Test Item Value Reference Range Interpretation [...] PERCENT (BEAKER) (test code = 2801) POCT-GLUCOSE [id number] 20:24:00 Test Item Value Reference Range Interpretation Comments POC-GLUCOSE METER 155 mg/dL 70-110 H : TESTED A T [facility] 1317 (BEAKER) (test code [facility] NT [facility], = 1538) [facility] [address]: Night Time Nanny/Techni artemio ID = [id number] for Anne Busby POCT-GLUCOSE [id number] 16:39:00 Test Item Value Reference Range Interpretation Comments POC-GLUCOSE METER 164 mg/dL 70-110 H : Notified RN/MD: TESTED (BEAKER) (test code AT [facility] [address] = 1538) [facility], [facility] [address]: Night Time Nanny/Techni artemio ID = [id number] for Alondra Kelley SARS-CoV2/RT-PCR (Asymptomatic ONLY)2019-12-30 15:57:00 Test Item Value Reference Range Interpretation Comments SARS-COV2/RT-PCR Negative Not Detected, (test code = Negative, See 21355-4) external report for linked test SARS-COV-2 [facility] JANET PERFORMING LAB (test code = 23306-0) ZIA (test code = Negative result for [...] of the Act. Fact Sheet for Healthcare Providers:https://www.[employer]/sites/default/f loco/product/documents/F act_Sheet_HC_Providers_L oca_LLUG-EvM-6.pdf Fact Sheet for Healthcare Patients:https://www.[employer]/sites/default/fi les/product/documents/Fa ct_Sheet_Patients_Lyra_S ARS-CoV-2.pdf Performing Laboratory:[facility], [place] [address] [place], [place] [address]ARS-CoV2/RT-PCR (Asymptomatic ONLY)2019-12-30 15:57:00 Test Item Value Reference Range Interpretation Comments SARS-COV2/RT-PCR Negative Not Detected, (test code = Negative, See 37348-7) external report for linked test SARS-COV-2 [facility]ET PERFORMING LAB (test code = 48945-0) ZIA (test code = Negative result for [...] of the Act. Fact Sheet for Healthcare Providers:https://www.[employer]/sites/default/f loco/product/documents/F act_Sheet_HC_Providers_L imy_OFJC-CxH-1.pdf Fact Sheet for Healthcare Patients:https://www.[employer]/sites/default/fi les/product/documents/Fa ct_Sheet_Patients_Lyra_S ARS-CoV-2.pdf Performing Laboratory:[facility], [place] [address] [place], [place] [address]ARS-COV2/RT-PCR ([facility])2019-12-30 15:57:00 Test Item Value Reference Range Interpretation Comments SARS-COV2/RT-PCR (test Negative Not Detected, Negative, code = 8520326) See external report for linked test SARS-COV-2 PERFORMING LAB [facility] JANET (test code = 6264088) Negative result for this test determines that [...] 564(g) of the Act.Fact Sheet for Healthcare Providers:https://www.[employer]/sites/default/files/product/documents/Fact_Shee u_JL_Nzhelkvzr_Vtao_AWDN-JuC-6.pdfFact Sheet for Healthcare Patients:https://www.[employer]/sites/default/files/product/ documents/Huid_Unacr_Vjkphsnu_Vqbd_SVIR-ZcN-0.pdfPerforming Laboratory:[facility], [place] [address]WYAT-LKBDBAH METER 2019-12-30 11:50:00 Test Item Value Reference Range Interpretation Comments POC-GLUCOSE METER 82 mg/dL 70-110 : Notified RN/MD: TESTED (ROBERT) (test code = AT [address]) [facility] [address]: Night Time Nanny/Techni artemio ID = [id number] for romero Alondra kim WOUND CULTURE + GRAM [id number] 10:45:00 Test Item Value Reference Interpretation Comments [...] gram negative (BEAKER) (test code rods = 486686) POCT-GLUCOSE [id number] 05:50:00 Test Item Value Reference Range Interpretation Comments POC-GLUCOSE METER 103 mg/dL 70-110 : Notified RN/MD: TESTED (BEAKER) (test code AT [facility] [address] = 1538) [facility] [address]: Night Time Nanny/Techni artemio ID = [id number] for Zonia Healy COMPREHENSIVE METABOLIC [id number] 05:44:00 Test Item Value Reference Range Interpretation [...] S NOT APPLICABLE FOR DIALYSIS PATIEN TS. Night Time Nanny ID - ADMINCBC W/PLT COUNT & AUTO [id number] 05:29:00 Test Item Value Reference Range Interpretation [...] PERCENT (BEAKER) (test code = 2801) POCT-GLUCOSE [id number] 21:21:00 Test Item Value Reference Range Interpretation Comments POC-GLUCOSE METER 185 mg/dL 70-110 H : Notified RN/MD: TESTED (BEAKER) (test code AT [facility] [address] = 1538) [place] [address]: Night Time Nanny/Techni artemio ID = [id number] for Zonia Healy POCT-GLUCOSE [id number] 11:21:00 Test Item Value Reference Range Interpretation Comments POC-GLUCOSE METER 143 mg/dL 70-110 H : Notified RN/MD: TESTED (BEAKER) (test code AT [facility] [address] [address] = 1538) [place] [address]: Night Time Nanny/Techni artemio ID = [id number] for Alondra Kelley COMPREHENSIVE METABOLIC [id number] 06:27:00 Test Item Value Reference Range Interpretation [...] S NOT APPLICABLE FOR DIALYSIS PATIEN TS. Night Time Nanny ID - ADMINPOCT-GLUCOSE [id number] 06:21:00 Test Item Value Reference Range Interpretation Comments POC-GLUCOSE METER 73 mg/dL 70-110 : Notified RN/MD: TESTED (BEAKER) (test code = AT [address]) [facility] [address]: Night Time Nanny/Techni artemio ID = [id number] for Zonia Healy CBC W/PLT COUNT & AUTO [id number] 06:00:00 Test Item Value Reference Range Interpretation [...] PERCENT (BEAKER) (test code = 2801) POCT-GLUCOSE [id number] 20:48:00 Test Item Value Reference Range Interpretation Comments POC-GLUCOSE METER 84 mg/dL 70-110 : Notified RN/MD: TESTED (BEAKER) (test code = AT [address]) [facility] [address]: Night Time Nanny/Techni artemio ID = [id number] for Zonia Healy POCT-GLUCOSE [id number] 17:51:00 Test Item Value Reference Range Interpretation Comments POC-GLUCOSE METER 59 mg/dL 70-110 L : TESTED A T [facility] [address] ([facility]) (test code = [address] [facility], 1538) [facility] [address]: Night Time Nanny/Techni artemio ID = [id number] for Berta Servin POCT-GLUCOSE [id number] 13:28:00 Test Item Value Reference Range Interpretation Comments POC-GLUCOSE METER 67 mg/dL 70-110 L : TESTED A T [facility] [address] (BEAKER) (test code = [address], 15[address]) [facility] [address]: Night Time Nanny/Techni artemio ID = [id number] for Berta Servin POCT-GLUCOSE [id number] 06:04:00 Test Item Value Reference Range Interpretation Comments POC-GLUCOSE METER 94 mg/dL 70-110 : TESTED A T [facility] [address] (BEAKER) (test code = [address], [address]) [place] [address]: Night Time Nanny/Techni artemio ID = [id number] for Anahi Sherman COMPREHENSIVE METABOLIC [id number] 05:35:00 Test Item Value Reference Range Interpretation [...] S NOT APPLICABLE FOR DIALYSIS PATIEN TS. Night Time Nanny ID - ADMINCBC W/PLT COUNT & AUTO [id number] 04:56:00 Test Item Value Reference Range Interpretation [...] PERCENT (BEAKER) (test code = 2801) POCT-GLUCOSE [id number] 20:43:00 Test Item Value Reference Range Interpretation Comments POC-GLUCOSE METER 137 mg/dL 70-110 H : TESTED A T [facility] [address] (BEAKER) (test code [facility] [address], = 1538) [facility] [address]: Night Time Nanny/Techni artemio ID = [id number] for Anahi Sherman, EXTREMITY, LOWER, WITHOUT CONTRAST, [id number] 16:55:00MRI LEFT FOOT.Unlisted Reason for Exam - [...] MDReport Verified Date/Time: 12/27/2019 16:55:07 Reading Location: [facility] Radiology Reading Room MR lower extremity without IV contrast left [id number] 16:55:00Interface, External Ris In - 12/27/2019 4:57 [...] MDReport Verified Date/Time: 12/27/2019 16:55:07 Reading Location: [facility] Radiology Reading Room Electronically signed by: Adrienne CHU 12/27/2019 04:55 [facility] [id number] 16:55:00Interface, External Ris In - 12/27/2019 4:57 [...] Ring Verified Date/Time: 12/27/2019 16:55:07 Reading Location: [facility] Radiology Reading Room Electronically signed by: Adrienne CHU 12/27/2019 04:55 [facility] [id number] 14:19:00 Test Item Value Reference Range Interpretation Comments POC-GLUCOSE METER 232 mg/dL 70-110 H : TESTED A T [facility] [address]17 (BEAKER) (test code [address], = 1538) [facility] 77 478: Night Time Nanny/Techni artemio ID = [id number] for Berat Servin CT, CTA AAA, W/ [email or web address].[id number] 11:38:00Bilateral lower extremities Addendum BeginsREPORT STATUS:A I agree with the nonvascular findings with exceptions and emphasis as below:*Moderate right and small left pleural effusions are partially visualized.*Large volume ascites.*Diffuse anasarca*The reflux of contrast into the hepatic veins is concerning for volume overload. Signed: Molly Linares MDRtieraort Verified Date/Time: 12/27/2019 11:38:28 Reading Location: [facility] Diagnostic Imaging Reading Room - [place] [id number] REPORT [address] angiography of the abdominal aorta and runoff, 26-Dec-19 INDICATION: This is a 64 year old female with with lower leg penetrating trauma presents for assessment. TECHNIQUE: Spiral acquisition before and during intravenous contrast administration using a PushCoin multidetector CT scanner. Images were obtained before [...] identified. However, significant calcification identified of the clover[place] left SFA, for example at image 516, [...] the right popliteal artery is patent, with livu-zu-nwhzxsmj diffuse calcification identified with no obstructive lesion [...] However, in the distal left SFA, the cloverdale artery substantial calcification identified and the stent [...] atherosclerosis identified. 4. In the right, the clover[place] right SFA is not filled by contrast [...] dictated regarding the non-vascular findings by the Patrol Inspector Radiologist. Signed: Shlomo Dockery MDReport Verified Date/Time: 12/27/2019 07:59:51 Reading Location: [place] [address] [address] Reading Room Protein electrophoresis, serum 2019-12-27 [...] as normal/abnormal . ZIA (test code = Night Time Nanny ID - ZIA) [facility] Lab Interpretation Abnormal (test code = 87624-5) [facility] Hospital[facility] electrophoresis, [id number] 09:29:00 Test Item Value Reference Range Interpretation [...] as normal/abnormal . ZIA (test code = Night Time Nanny ID - ZIA) [facility] Lab Interpretation Abnormal (test code = 18570-8) [facility] HospitalPROTEIN ELECTROPHORESIS, [id number] 09:29:00 Test Item Value Reference Range Interpretation [...] chronic inflammatory response. No monoclonal bands detected. [id number] Rocio Galindo MD (BEAKER) (test code = (electronic signature) 2616) PROTEIN TOTAL SERUM, 6.3 gm/dL 6.0-8.3 SPEP (BEAKER) (test code = 2660) Night Time Nanny ID - LEONIE FCTA AAA and [id number] 07:59:00Interface, External Ris In - 12/27/2019 11:40 AM CDTAddendum BeginsREPORT STATUS:A I agree with the nonvascular findings with exceptions and emphasis as below:*Moderate right andsmall left pleural effusions are partially visualized.*Large volume ascites.*Diffuse anasarca*The reflux of contrast into the hepatic veins is concerning for volume overload. Signed: Molly Linares MDReport Verified Date/Time: 12/27/2019 11:38:28 Reading Location: [facility] Diagnostic Imaging Reading Room - [place] [address] [address] angiography of the abdominal aorta and runoff, 26-Dec-19 INDICATION: This is a 64 year old female with with lower leg penetrating trauma presents for assessment. TECHNIQUE: Spiral acquisition before and during intravenous contrast administration using a PushCoin multidetector CT scanner. Images were obtained before [...] identified. However, significant calcification identified of the clover[place] left SFA, for example at image 516, [...] the right popliteal artery is patent, with bxfh-vu-albxmeho diffuse calcification identified with no obstructive lesion [...] However, in the distal left SFA, the cloverdale artery substantial calcification identified and the stent [...] atherosclerosis identified. 4. In the right, the [place] right SFA is not filled by contrast [...] dictated regarding the non-vascular findings by the Patrol Inspector Radiologist. Signed: Shlomo Dockery MDReport Verified Date/Time: 12/27/2019 07:59:51 Reading Location: [place] [address] [address] Reading Room [facility] AAA and [id number] 07:59:00Interface, External Ris In - 12/27/2019 11:40 AM CDTAddendum BeginsREPORT STATUS:A I agree with the nonvascular findings with exceptions and emphasis as below:*Moderate right andsmall left pleural effusions are partially visualized.*Large volume ascites.*Diffuse anasarca*The reflux of contrast into the hepatic veins is concerning for volume overload. Signed: Molly Linares MDReport Verified Date/Time: 12/27/2019 11:38:28 Reading Location: [facility] Diagnostic Imaging Reading Room - [place] [id number] EndsFINAL REPORT CT angiography of the abdominal aorta and runoff, 26-Dec-19 INDICATION: This is a 64 year old female with with lower leg penetrating trauma presents for assessment. TECHNIQUE: Spiral acquisition before and during intravenous contrast administration using a PushCoin multidetector CT scanner. Images were obtained before [...] identified. However, significant calcification identified of the clover[place] left SFA, for example at image 516, [...] the right popliteal artery is patent, with cbli-tp-kppnelfq diffuse calcification identified with no obstructive lesion [...] However, in the distal left SFA, the [place]over[place] artery substantial calcification identified and the stent [...] atherosclerosis identified. 4. In the right, the [place] right SFA is not filled by contrast [...] dictated regarding the non-vascular findings by the Patrol Inspector Radiologist. Signed: Shlomo Dockery MDReport Verified Date/Time: 12/27/2019 07:59:51 Reading Location: [place] [address] [address] Reading Room [facility] [place]ville[facility]CT-[place]U[facility] [id number] 06:56:00 Test Item Value Reference Range Interpretation Comments POC-GLUCOSE METER 39 mg/dL 70-110 LL : Notified RN/: [facility] (test code = AT [facility] [address] [facility] 1538) [facility] [address]: Night Time Nanny/Techni artemio ID = [id number] for Anahi Sherman COMPREHENSIVE METABOLIC [id number] 06:15:00 Test Item Value Reference Range Interpretation [...] S NOT APPLICABLE FOR DIALYSIS PATIEN TS. Night Time Nanny ID - ADMINPOCT-GLUCOSE [id number] 06:01:00 Test Item Value Reference Range Interpretation Comments POC-GLUCOSE METER 55 mg/dL 70-110 L : Notified RN/MD: TESTED (BEAKER) (test code = AT [address]) [facility] [address]: Night Time Nanny/Techni artemio ID = [id number] for Anahi Sherman CBC W/PLT COUNT & AUTO [id number] 05:44:00 Test Item Value Reference Range Interpretation [...] PERCENT (BEAKER) (test code = 2801) POCT-GLUCOSE [id number] 21:03:00 Test Item Value Reference Range Interpretation Comments POC-GLUCOSE METER 278 mg/dL 70-110 H : Notified RN/MD: TESTED (BEAKER) (test code AT [address] PO[address] = 1538) JAYNAJoe [facility] [address]: Night Time Nanny/Techni artemio ID = [id number] for nAahi Sherman POCT-GLUCOSE [id number] 16:53:00 Test Item Value Reference Range Interpretation Comments POC-GLUCOSE METER 70 mg/dL 70-110 : TESTED A T [address] (BEAKER) (test code = [address], [address]) [place] [address]: Night Time Nanny/Techni artemio ID = [id number] for Nalini Jean Baptiste POCT-GLUCOSE [id number] 12:11:00 Test Item Value Reference Range Interpretation Comments POC-GLUCOSE METER 97 mg/dL 70-110 : TESTED A T [address] (BEAKER) (test code = [address], [address]) [place] [address]: Night Time Nanny/Techni artemio ID = [id number] for Nalini Jean Baptiste POCT-GLUCOSE [id number] 06:21:00 Test Item Value Reference Range Interpretation Comments POC-GLUCOSE METER 71 mg/dL 70-110 : TESTED A T [address] (BEAKER) (test code = [address], 15[address]) [place] [address]: Night Time Nanny/Techni artemio ID = [id number] for Nwjanis iufu, Holly COMPREHENSIVE METABOLIC [id number] 05:50:00 Test Item Value Reference Range Interpretation [...] S NOT APPLICABLE FOR DIALYSIS PATIEN TS. Night Time Nanny ID - ADMINCBC W/PLT COUNT & AUTO [id number] 05:17:00 Test Item Value Reference Range Interpretation [...] (BEAKER) (test code = 2801) Prepare Leuko-Red [id number] 23:54:00 Test Item Value Reference Range Interpretation Comments CROSSMATCH (test code = 2264) COMPATIBLE Unit ABO (test code = O Pos [id number]) UNIT NUMBER (test code = [id number] 934-0) Status (test code = 3499741) [facility] Blood Bank Product (test code RED BLOOD CELLS = 2263) PRODUCT CODE (test code = L1671M38 933-2) [facility] HospitalPrepare Leuko-Red [id number] 23:54:00 Test Item Value Reference Range Interpretation Comments CROSSMATCH (test code = 2264) COMPATIBLE Unit ABO (test code = O Pos 7449291) UNIT NUMBER (test code = [id number] 934-0) Status (test code = 4513973) [facility] Blood Bank Product (test code RED BLOOD CELLS = 2263) PRODUCT CODE (test code = L5732H02 933-2) [facility] HospitalPOCT-GLUCOSE [id number] 21:03:00 Test Item Value Reference Range Interpretation Comments POC-GLUCOSE METER 87 mg/dL 70-110 : TESTED A T [address] (BEAKER) (test code = [address], [address]) [facility] [place] [address]: Night Time Nanny/Techni artemio ID = [id number] for Nwad iufu, Holly POCT-GLUCOSE [id number] 17:12:00 Test Item Value Reference Range Interpretation Comments POC-GLUCOSE METER 79 mg/dL 70-110 : TESTED A T [address] (BEAKER) (test code = [address], 1538) [facility] [address]: Night Time Nanny/Techni artemio ID = [id number] for Nalini Jean Baptiste POCT-GLUCOSE [id number] 11:37:00 Test Item Value Reference Range Interpretation Comments POC-GLUCOSE METER 262 mg/dL 70-110 H : TESTED A T [address] (BEAKER) (test code [address], = 1538) [facility] [address]: Night Time Nanny/Techni artemio ID = [id number] for Nalini Jean Baptiste COMPREHENSIVE METABOLIC [id number] 06:29:00 Test Item Value Reference Range Interpretation [...] S NOT APPLICABLE FOR DIALYSIS PATIEN TS. Night Time Nanny ID - ADMINCBC W/PLT COUNT & AUTO [id number] 06:12:00 Test Item Value Reference Range Interpretation [...] PERCENT (BEAKER) (test code = 2801) POCT-GLUCOSE [id number] 06:09:00 Test Item Value Reference Range Interpretation Comments POC-GLUCOSE METER 83 mg/dL 70-110 : Notified RN/MD: TESTED (BEAKER) (test code = AT [facility] L [address]) [place] [address]: Night Time Nanny/Techni artemio ID = [id number] for Anahi Sherman POCT-GLUCOSE [id number] 16:26:00 Test Item Value Reference Range Interpretation Comments POC-GLUCOSE METER 182 mg/dL 70-110 H : Notified RN/MD: TESTED (BEAKER) (test code AT [facility] [address] = 1538) [facility] [address]: Night Time Nanny/Techni artemio ID = [id number] for Alondra Kelley, [id number] 09:17:00 Test Item Value Reference Range Interpretation Comments Rh Factor (test code = POS 2589) ABO Grouping (test code O PINK TOP 12/24/19 @ 0824 = 2588) [facility] HospitalABORH, [id number] 09:17:00 Test Item Value Reference Range Interpretation Comments Rh Factor (test code = POS 2589) ABO Grouping (test code O PINK TOP 12/24/19 @ 0824 = 2588) [facility] HospitalType and screen, [id number] 07:31:00 Test Item Value Reference Range Interpretation Comments ABO/RH AUTOMATED (BEAKER) (test O POSITIVE ECHO code = 2260) Ab Scrn (test code = 890-4) NEGATIVE ECHO [facility] HospitalType and screen, [id number] 07:31:00 Test Item Value Reference Range Interpretation Comments ABO/RH AUTOMATED (BEAKER) (test O POSITIVE ECHO code = 2260) Ab Scrn (test code = 890-4) NEGATIVE ECHO [facility] [id number] 06:42:00 Test Item Value Reference Range Interpretation [...] S NOT APPLICABLE FOR DIALYSIS PATIEN TS. Night Time Nanny ID - ADMINPOCT-GLUCOSE [id number] 06:23:00 Test Item Value Reference Range Interpretation Comments POC-GLUCOSE METER 88 mg/dL 70-110 : TESTED A T [address] (BEAKER) (test code = [address], 1538) [facility] [address]: Night Time Nanny/Techni artemio ID = [id number] for Anne Busby CBC W/PLT COUNT & AUTO [id number] 06:23:00 Test Item Value Reference Range Interpretation [...] PERCENT (BEAKER) (test code = 2801) POCT-GLUCOSE [id number] 21:38:00 Test Item Value Reference Range Interpretation Comments POC-GLUCOSE METER 126 mg/dL 70-110 H : TESTED A T [address] (BEAKER) (test code [address] [facility], = 1538) [facility] 77 [address]: Night Time Nanny/Techni artemio ID = [id number] for Anne Busby POCT-GLUCOSE [id number] 16:54:00 Test Item Value Reference Range Interpretation Comments POC-GLUCOSE METER 89 mg/dL 70-110 : Notified RN/MD: TESTED (BEAKER) (test code = AT [address]) [facility] [address]: Night Time Nanny/Techni artemio ID = [id number] for Alondra Kelley MR, EXTREMITY, LOWER, JOINT, WITHOUT CONTRAST, [id number] 16:10:00Unlisted Reason for Exam - Click Yes [...] Jordaneport Verified Date/Time: 12/23/2019 16:10:32 Reading Location: [facility] C013X Ortho Consult Reading Room MR lower extremity joint only without IV contrast left [id number] 16:10:00Interface, External Ris In - 12/23/2019 4:12 [...] Date/Time: 12/23/2019 16:10:32 Reading Location: [facility] C013X Ortho Consult Reading Room [facility] without [...] Jordan Verified Date/Time: 12/23/2019 16:10:32 Reading Location: [address] Ortho Consult Reading Room [facility] CenterMR, BRAIN, WITHOUT [id number] 15:43:00Unlisted Reason for Exam - Click Yes [...] Date/Time: 12/23/2019 15:43:24 MR brain without IV [id number] 15:43:00Interface, External Ris In - 12/23/2019 3:45 [...] Signed: Berta Muniz Verified Date/Time: 12/23/2019 15:43:24 [facility] CenterMR [facility] without IV [id number] 15:43:00Interface, External Ris In - 12/23/2019 3:45 [...] Signed: Berta Muniz Verified Date/Time: 12/23/2019 15:43:24 [facility]) 2019-12-23 14:16:00 Test Item Value Reference Range Interpretation Comments SARS-COV2/RT-PCR (test Negative Not Detected, Negative, code = 4238044) See external report for linked test SARS-COV-2 PERFORMING LAB [facility] JANET (test code = 4425689) Negative result for this test determines that [...] 564(g) of the Act.Fact Sheet for Healthcare Providers:https://www.Sitemasheridel.com/sites/default/files/product/documents/Fact_Shee u_GH_Ccisosccl_Yaaq_LECH-DlA-5.pdfFact Sheet for Healthcare Patients:https://www.Solaria.com/sites/default/files/product/ documents/Fwuc_Sjilg_Cfuisaei_Fkcg_ASNV-NtG-0.pdfPerforming Laboratory:[place] [address] [address], [place] [address]Termv / lambda light chains, [id number] 12:25:00 Test Item Value Reference Interpretation Comments Range Imogene Lt Chain,Free 474.4 mg/L 3.3-19.4 H (test code = 00322-2) Lambda Lt 225.6 mg/L 5.7-26.3 H Chain,Free (test code = 28663-1) Imogene/Lambda,Free 2.1 0.26-1.65 H Free annabelle a/lambda (test [...] = Performing Lab ZIA) EZ [facility] [id number] [place] [address] Jaguar Stein MD, PhD, CORI Lab Interpretation Abnormal (test code = 77779-0) [facility] HospitalKappa / lambda light chains, [id number] 12:25:00 Test Item Value Reference Interpretation Comments Range Imogene Lt Chain,Free 474.4 mg/L 3.3-19.4 H (test code = 66881-1) Lambda Lt 225.6 mg/L 5.7-26.3 H Chain,Free (test code = 61164-9) Imogene/Lambda,Free 2.1 0.26-1.65 H Free annabelle a/lambda (test [...] (test code = Performing Lab ZIA) EZ [facility] [address] [place] [address] Jaguar Stein MD, PhD, CORI Lab Interpretation Abnormal (test code = 95413-5) [facility] HospitalPOCT-GLUCOSE [id number] 11:27:00 Test Item Value Reference Range Interpretation Comments POC-GLUCOSE METER 189 mg/dL 70-110 H : Notified RN/MD: TESTED (BEAKER) (test code AT [facility] [address] [place] [address] = 1538) [facility] [address]: Night Time Nanny/Techni artemio ID = [id number] for Alondra Kelley ARTERIAL DOPPLER LEGS, [id number] 11:22:00Reason for exam:->non healing ulcer , non [...] MDReport Verified Date/Time: 12/23/2019 11:22:31 Reading Location: [facility] Radiology Reading Room Arterial Doppler Legs [id number] 11:22:00 Interface, External Ris In - 12/23/2019 [...] MDRtieraort Verified Date/Time: 12/23/2019 11:22:31 Reading Location: [facility] Radiology Reading Room [facility]ville[facility] Doppler Legs [id number] 11:22:00Interface, External Ris In - 12/23/2019 11:24 [...] MDReport Verified Date/Time: 12/23/2019 11:22:31 Reading Location: [facility] Radiology Reading Room [facility]ville[facility]PREHENSIVE METABOLIC PANEL 2019-12-23 04:44:00 Test Item Value [...] S NOT APPLICABLE FOR DIALYSIS PATIEN TS. Night Time Nanny ID - ADMINCBC W/PLT COUNT & AUTO [id number] 04:35:00 Test Item Value Reference Range Interpretation [...] H PERCENT (BEAKER) (test code = 2801) [id number] 04:29:00 Test Item Value Reference Range Interpretation Comments Ammonia (test code = 36 See_Comment [Autom ated 59777-8) message] The system which generated this result transmit merna reference range : 17 - 80 mol/L . The reference range was not u sed to interpret th is result as normal/abnormal . ZIA (test code = ZIA) Night Time Nanny ID - ADMIN Lab Interpretation Normal (test code = 56176-8) [facility] HospitalAmmonia2020-09-24 04:29:00 Test Item Value Reference Range Interpretation Comments Ammonia (test code = 36 See_Comment [Autom ated 05307-8) message] The system which generated this result transmit merna reference range : 17 - 80 mol/L . The reference range was not u sed to interpret th is result as normal/abnormal . ZIA (test code = ZIA) Night Time Nanny ID - ADMIN Lab Interpretation Normal (test code = 77322-4) [facility] HospitalAMMONIA2020-09-24 04:29:00 Test Item Value Reference Range Interpretation Comments AMMONIA (BEAKER) (test code = 348) 36 mol/L 17-80 Night Time Nanny ID - ADMINPOCT-GLUCOSE [id number] 20:45:00 Test Item Value Reference Range Interpretation Comments POC-GLUCOSE METER 95 mg/dL 70-110 : TESTED A T [address] (BEAKER) (test code = [address], 1538) [facility] [address]: Night Time Nanny/Techni artemio ID = [id number] for Ashley austin Anne POCT-GLUCOSE [id number] 17:08:00 Test Item Value Reference Range Interpretation Comments POC-GLUCOSE METER 107 mg/dL 70-110 : TESTED A T [address] (BEAKER) (test code [address], = 1538) [place] [address]: Night Time Nanny/Techni artemio ID = [id number] for Jordyn Fonseca POCT-GLUCOSE [id number] 11:55:00 Test Item Value Reference Range Interpretation Comments POC-GLUCOSE METER 135 mg/dL 70-110 H : TESTED A T [address] (BEAKER) (test code [address], = 1538) [place] [address]: Night Time Nanny/Techni artemio ID = [id number] for Jordyn Fonseca Anti-Nuclear Antibody (ROGER)2019-12-22 11:40:00 Test Item Value Reference Range Interpretation Comments ROGER (test code = 17418-5) Positive Negative A ZIA (test code = ZIA) Test performed by IFA method. Lab Interpretation (test Abnormal code = 57758-6) [facility] HospitalANA Titer & [id number] 11:40:00 Test Item Value Reference Range Interpretation Comments ROGER Titer (test code = 48038-5) 1:40 ROGER Pattern (test code = 1781) Speckled [facility] HospitalAnti-Nuclear Antibody (ROGER)2019-12-22 11:40:00 Test Item Value Reference Range Interpretation Comments ROGER (test code = 03932-1) Positive Negative A ZIA (test code = ZIA) Test performed by IFA method. Lab Interpretation (test Abnormal code = 51606-8) [facility] HospitalANA Titer & [id number] 11:40:00 Test Item Value Reference Range Interpretation Comments ROGER Titer (test code = 97572-2) 1:40 ROGER Pattern (test code = 1781) Speckled [facility] HospitalANTI-NUCLEAR ANTIBODY (ROGER)2019-12-22 11:40:00 Test Item Value Reference Range Interpretation Comments ANTI-NUCLEAR ANTIBODY (ROGER) (BEAKER) Positive Negative A (test code = 418) Test performed by IFA method.ROGER TITER AND [id number] 11:40:00 Test Item Value Reference Range Interpretation Comments ROGER TITER (BEAKER) (test code = :40 1541) ROGER PATTERN (BEAKER) (test code = Speckled 1781) POCT-GLUCOSE [id number] 06:44:00 Test Item Value Reference Range Interpretation Comments POC-GLUCOSE METER 92 mg/dL 70-110 : TESTED A T [address] (BEAKER) (test code = [address], 1538) [facility] [place] [address]: Night Time Nanny/Techni artemio ID = [id number] for Anne Busby COMPREHENSIVE METABOLIC [id number] 06:35:00 Test Item Value Reference Range Interpretation [...] S NOT APPLICABLE FOR DIALYSIS PATIEN TS. Night Time Nanny ID - ADMINCBC W/PLT COUNT & AUTO [id number] 06:16:00 Test Item Value Reference Range Interpretation [...] PERCENT (BEAKER) (test code = 2801) POCT-GLUCOSE [id number] 20:38:00 Test Item Value Reference Range Interpretation Comments POC-GLUCOSE METER 85 mg/dL 70-110 : TESTED A T [address] (BEAKER) (test code = [address], 1538) [place] [address]: Night Time Nanny/Techni artemio ID = [id number] for Anne Busby POCT-GLUCOSE [id number] 18:14:00 Test Item Value Reference Range Interpretation Comments POC-GLUCOSE METER 112 mg/dL 70-110 H : TESTED A T [address] (BEAKER) (test code [address], = 1538) [place] [address]: Night Time Nanny/Techni artemio ID = [id number] for Christina r, Berta POCT-GLUCOSE [id number] 13:00:00 Test Item Value Reference Range Interpretation Comments POC-GLUCOSE METER 77 mg/dL 70-110 : TESTED A T [address] (BEAKER) (test code = [address], 1538) [place] [address]: Night Time Nanny/Techni artemio ID = [id number] for Christina r, Berta POCT-GLUCOSE [id number] 07:32:00 Test Item Value Reference Range Interpretation Comments POC-GLUCOSE METER 60 mg/dL 70-110 L : TESTED A T [address] (BEAKER) (test code = [address], 1538) [place] [address]: Night Time Nanny/Techni artemio ID = [id number] for Marissa Page COMPREHENSIVE METABOLIC [id number] 06:11:00 Test Item Value Reference Range Interpretation [...] S NOT APPLICABLE FOR DIALYSIS PATIEN TS. Night Time Nanny ID - ADMINC-Reactive [id number] 06:06:00 Test Item Value Reference Range Interpretation Comments CRP (test code = 676) 1.63 mg/dL 0-0.5 H ZIA (test code = ZIA) Night Time Nanny ID - ADMIN Lab Interpretation (test Abnormal code = 57893-8) [facility] HospitalC-Reactive [id number] 06:06:00 Test Item Value Reference Range Interpretation Comments CRP (test code = 676) 1.63 mg/dL 0-0.5 H ZIA (test code = ZIA) Night Time Nanny ID - ADMIN Lab Interpretation (test Abnormal code = 38600-4) [facility] HospitalC-REACTIVE [id number] 06:06:00 Test Item Value Reference Range Interpretation Comments C-REACTIVE PROTEIN (BEAKER) (test 1.63 mg/dL 0.00-0.50 H code = 676) Night Time Nanny ID - ADMINPOCT-GLUCOSE [id number] 06:04:00 Test Item Value Reference Range Interpretation Comments POC-GLUCOSE METER 56 mg/dL 70-110 L : Notified RN/MD: TESTED (BEAKER) (test code = AT SLS L [address] [facility] 1538) [place] [address]: Night Time Nanny/Techni artemio ID = [id number] for Nelda Abdi CBC W/PLT COUNT & AUTO [id number] 05:53:00 Test Item Value Reference Range Interpretation [...] (BEAKER) (test code = 2801) U/S, ABDOMINAL, [id number] 22:02:00Reason for exam:->thrombocytopenia / eval for hepatosplenomegalyFINAL [...] MDReport Verified Date/Time: 12/20/2019 22:02:21 US abdomen [id number] 22:02:00Interface, External Ris In - 12/20/2019 10:04 [...] Hever Marin MDReport Verified Date/Time: 12/20/2019 22:02:21 [facility] [id number] 22:02:00Interface, External Ris In - 12/20/2019 10:04 [...] Signed: Hever Marin MDReport Verified Date/Time:12/20/2019 22:02:21 [facility] CenterPO[facility]SE [id number] 20:36:00 Test Item Value Reference Range Interpretation Comments POC-GLUCOSE METER 74 mg/dL 70-110 : Notified RN/MD: TESTED (BEAKER) (test code = AT [address]) [facility] [address]: Night Time Nanny/Techni artemio ID = [id number] for Nelda Abdi POCT-GLUCOSE [id number] 17:50:00 Test Item Value Reference Range Interpretation Comments POC-GLUCOSE METER 72 mg/dL 70-110 : TESTED A T SLSL 1317 ([facility]) (test code = [address] [facility], 1538) [facility] 77 788: Night Time Nanny/Techni artemio ID = [id number] for Christina osborne Berta CT, BRAIN, WITHOUT [id number] 16:08:00Unlisted Reason for Exam - Click Yes [...] Date/Time: 12/20/2019 16:08:40 CT brain without IV [id number] 16:08:00Interface, External Ris In - 12/20/2019 4:10 [...] Signed: Berta Muniz Verified Date/Time: 12/20/2019 16:08:40 [facility] [id number] 16:08:00 Interface, External Ris In - 12/20/2019 [...] Berta Muniz MDReport Verified Date/Time: 12/20/2019 16:08:40 [facility] 2 [facility], LEFT 2019-12-20 [...] MDReport Verified Date/Time: 12/20/2019 15:15:25 Reading Location: [facility] Radiology Reading Room , FOOT, 2 VIEWS, [id number] 15:15:00Reason for exam:->Rule out osteomyelitisShould this be [...] MDReport Verified Date/Time: 12/20/2019 15:15:25 Reading Location: [facility] Radiology Reading Room XR foot 2 views [id number] 15:15:00Interface, External Ris In - 12/20/2019 3:17 [...] Monahaneport Verified Date/Time: 12/20/2019 15:15:25 Reading Location: [facility] Radiology Reading Room [facility]XR [facility] 2 views [id number] 15:15:00Interface, External Ris In - 12/20/2019 3:17 [...] Monahan Verified Date/Time: 12/20/2019 15:15:25 Reading Location: [facility] Radiology Reading Room [facility] 2 views [id number] 15:15:00Interface, External Ris In - 12/20/2019 3:17 [...] Monahanort Verified Date/Time: 12/20/2019 15:15:25 Reading Location: [facility] Radiology Reading Room [facility] foot 2 views [id number] 15:15:00Interface, External Ris In - 12/20/2019 3:17 [...] MDRtu Verified Date/Time: 12/20/2019 15:15:25 Reading Location: [facility] Radiology Reading Room [facility] [id number] 14:56:00 Test Item Value Reference Range Interpretation Comments AMMONIA (BEAKER) (test code = 348) 33 mol/L 17-80 Night Time Nanny ID - ADMINBlood gas, [id number] 14:41:00 Test Item Value Reference Range Interpretation Comments pH, Arterial (test code 7.33 7.35-7.45 L = 2744-1) pCO2, Arterial (test 58 See_Comment H [Autom ated message] code = 2019-) The system [facility] generated this result transmit merna reference range : 35 - 45 mmHg. The reference range was not used to interpret this result as normal/abnormal . pO2, Arterial (test 109 See_Comment H [Automa merna message] code = 2703-7) The system [facility] generated this result transmit merna [...] % Lab Interpretation Abnormal (test code = 84315-8) [facility], [id number] 14:41:00 Test Item Value Reference Range Interpretation Comments pH, Arterial (test code 7.33 7.35-7.45 L = 2744-1) pCO2, Arterial (test 58 See_Comment H [Autom ated message] code = 2018-10) The system [facility] generated this result transmit merna reference range : 35 - 45 mmHg. The reference range was not used to interpret this result as normal/abnormal . pO2, Arterial (test 109 See_Comment H [Automa merna message] code = 2703-7) The system [facility] generated this result transmit merna [...] % Lab Interpretation Abnormal (test code = 97253-3) [facility] HospitalBLOOD GAS, [id number] 14:41:00 Test Item Value Reference Range Interpretation [...] code = 1819) 32.0 % Occult blood, [id number] 11:56:00 Test Item Value Reference Range Interpretation Comments Occult blood (test code = 2335-8) Negative Negative Lab Interpretation (test code = Normal 50257-0) [facility] HospitalOccult blood, [id number] 11:56:00 Test Item Value Reference Range Interpretation Comments Occult blood (test code = 2335-8) Negative Negative Lab Interpretation (test code = Normal 66133-9) [facility] HospitalOCCULT BLOOD, [id number] 11:56:00 Test Item Value Reference Range Interpretation Comments FECAL OCCULT BLOOD (BEAKER) (test Negative Negative code = 618) POCT-GLUCOSE [id number] 11:39:00 Test Item Value Reference Range Interpretation Comments POC-GLUCOSE METER 88 mg/dL 70-110 : TESTED A T [address] (BEAKER) (test code = [address], 15[address]) [facility] 77 478: Night Time Nanny/Techni artemio ID = [id number] for Kai Phelpsda Hblwvyyakbn3559-00-96 11:22:00 Test Item Value Reference Range Interpretation Comments Haptoglobin (test code = <8 14-258 L 4542-7) ZIA (test code = ZIA) Night Time Nanny ID - CAROLINA F Lab Interpretation (test Abnormal code = 32710-0) [facility] HospitalHaptoglobin2020-09-21 11:22:00 Test Item Value Reference Range Interpretation Comments Haptoglobin (test code = <8 14-258 L 4542-7) ZIA (test code = ZIA) Night Time Nanny ID - LEONIE F Lab Interpretation (test Abnormal code = 43874-2) [facility] HospitalHAPTOGLOBIN2020-09-21 11:22:00 Test Item Value Reference Range Interpretation Comments HAPTOGLOBIN (BEAKER) (test code = < mg/dL 14-258 L 366) Night Time Nanny ID - [place] FT4, [id number] 11:01:00 Test Item Value Reference Range Interpretation Comments Free T4 (test code = 0.52 ng/dL 0.9-1.8 L 3024-7) ZIA (test code = ZIA) Night Time Nanny ID - ADMIN Lab Interpretation (test Abnormal code = 85462-5) [facility] HospitalT4, [id number] 11:01:00 Test Item Value Reference Range Interpretation Comments Free T4 (test code = 0.52 ng/dL 0.9-1.8 L 3024-7) ZIA (test code = ZIA) Night Time Nanny ID - ADMIN Lab Interpretation (test Abnormal code = 39493-8) [place] [address], [id number] 11:01:00 Test Item Value Reference Range Interpretation Comments FREE T4 (BEAKER) (test code = 655) 0.52 ng/dL 0.90-1.80 L Night Time Nanny ID - ADMINPeripheral Blood Smear - Path [id number] 08:19:00 Test Item Value Reference Range Interpretation [...] Griffith M.D. code = 2849) (electronic signature) [facility] HospitalPeripheral Blood Smear - Path [id number] 08:19:00 Test Item Value Reference Range Interpretation [...] Griffith M.D. code = 2849) (electronic signature) [facility] HospitalPERIPHERAL BLOOD SMEAR - PATHOLOGIST REVIEW 2019-12-20 08:19:00 Test Item Value Reference Range Interpretation Comments RBC MORPHOLOGY Target Cells (BEAKER) (test code = 2846) RBC MORPHOLOGY Basophilic Stippling (BEAKER) (test code = 11836) RBC MORPHOLOGY Nucleated Red Blood Cells (BEAKER) (test code = 53971) PERIPHERAL SMR Normochromic normocytic REVIEW (BEAKER) anemia with a few target (test code = 2640) cells, nucleated RBCs and basophilic stippling. No increase in schistocytes. WBCs normal in number and morphology. Thrombocytopenia with normal platelet morphology. [id number] Jovita Griffith M.D. 2 (BEAKER) (test (electronic signature) code = 2849) Vitamin B12 and [id number] 06:37:00 Test Item Value Reference Range Interpretation Comments Vitamin B12 (test 1431 pg/mL 211-911 H code = 2132-9) Folate (test code = 17.00 ng/mL See_Comment [Gucasha merna 2284-8) message] The system which generated this result transmit merna reference range : >=5.4. The reference range was not used to interpret this result as normal/abnormal . ZIA (test code = ZIA) Night Time Nanny ID - ADMIN Lab Interpretation Abnormal (test code = 50146-7) [facility] HospitalVitamin B12 and Yxqqhq1937-05-30 06:37:00 Test Item Value Reference Range Interpretation Comments Vitamin B12 (test 1431 pg/mL 211-911 H code = 2132-9) Folate (test code = 17.00 ng/mL See_Comment [Automa merna 2284-8) message] The system which generated this result transmit merna reference range : >=5.4. The reference range was not used to interpret this result as normal/abnormal . ZIA (test code = ZIA) Night Time Nanny ID - ADMIN Lab Interpretation Abnormal (test code = 29072-5) [facility] HospitalVITAMIN B12 AND [id number] 06:37:00 Test Item Value Reference Range Interpretation Comments VITAMIN B12 (BEAKER) (test code = 1431 pg/mL 211-911 H 774) FOLATE (BEAKER) (test code = 362) 17.00 ng/mL >=5.4 Night Time Nanny ID - ADMINPOCT-GLUCOSE [id number] 06:32:00 Test Item Value Reference Range Interpretation Comments POC-GLUCOSE METER 79 mg/dL 70-110 : TESTED A T [address]17 (BEAKER) (test code = [address], 15[address]) [facility] [place] 77 [address]: Night Time Nanny/Techni artemio ID = [id number] for Anahi Sherman Nolhmgky4113-12-38 06:25:00 Test Item Value Reference Range Interpretation Comments Ferritin (test code = 595.00 ng/mL 10-291 H 2276-4) ZIA (test code = ZIA) Night Time Nanny ID - ADMIN Lab Interpretation (test Abnormal code = 89333-0) [facility] HospitalTSH/Free T4 If Bhoqknlub1052-86-89 06:25:00 Test Item Value Reference Range Interpretation Comments TSH (test code = 21.210 See_Comment H [Automated 04330-8) message] The system which generated this result transmit merna reference range : 0.350 - 5.500 uIU/mL. The reference range was not used to interpret this result as normal/abnormal . ZIA (test code = ZIA) Night Time Nanny ID - ADMIN Lab Interpretation Abnormal (test code = 54482-3) [facility] HospitalFerritin2020-09-21 06:25:00 Test Item Value Reference Range Interpretation Comments Ferritin (test code = 595.00 ng/mL 10-291 H 2276-4) ZIA (test code = ZIA) Night Time Nanny ID - ADMIN Lab Interpretation (test Abnormal code = 93867-4) [facility] HospitalTS/Free T4 If Mhgaknsjp8988-37-21 06:25:00 Test Item Value Reference Range Interpretation Comments TSH (test code = 21.210 See_Comment H [Automated 59968-0) message] The system which generated this result transmit merna reference range : 0.350 - 5.500 uIU/mL. The reference range was not used to interpret this result as normal/abnormal . ZIA (test code = ZIA) Night Time Nanny ID - ADMIN Lab Interpretation Abnormal (test code = 90198-1) [facility] HospitalFERRITIN2020-09-21 06:25:00 Test Item Value Reference Range Interpretation Comments FERRITIN (BEAKER) (test code = 595.00 ng/mL 10.00-291.00 H 361) Night Time Nanny ID - ADMINTSH/FREE T4 IF [id number] 06:25:00 Test Item Value Reference Range Interpretation Comments THYROID STIMULATING HORMONE 21.210 uIU/mL 0.350-5.500 H (BEAKER) (test code = 772) Night Time Nanny ID - RUTDLXnfobuliey0982-64-83 06:06:00 Test Item Value Reference Range Interpretation Comments Fibrinogen (test code = 340 mg/dL 068-805 2653-7) ZIA (test code = ZIA) Final Information (Auto Output) Lab Interpretation (test Normal code = 00553-1) [facility] HospitalPT/[id number] 06:06:00 Test Item Value Reference Interpretation Comments Range Protime (test code = 13.5 See_Comment H [Autom ated 5902-2) message] The system which generated this result transmitted reference range : 9.3 - 12.0 sec. The reference range was not used to interpret this result as normal/abnormal . INR (test code = 1.25 See_Comment [Automated 5621-6) message] The system which generated this result transmitted reference range : <=5.90. The reference range was not used to interpret this result as normal/abnormal . PTT (test code = 38.2 See_Comment H [Automated 40757-3) message] The system which generated this result [...] Output) Lab Interpretation Abnormal (test code = 28097-3) [facility] HospitalFibrinogen2020-09-21 06:06:00 Test Item Value Reference Range Interpretation Comments Fibrinogen (test code = 340 mg/dL 885-890 0783-7) IZA (test code = ZIA) Final Information (Auto Output) Lab Interpretation (test Normal code = 21073-3) [facility] HospitalPT/[id number] 06:06:00 Test Item Value Reference Interpretation Comments Range Protime (test code = 13.5 See_Comment H [Autom ated 5902-2) message] The system which generated this result transmitted reference range : 9.3 - 12.0 sec. The reference range was not used to interpret this result as normal/abnormal . INR (test code = 1.25 See_Comment [Automated 3731-6) message] The system which generated this result transmitted reference range : <=5.90. The reference range was not used to interpret this result as normal/abnormal . PTT (test code = 38.2 See_Comment H [Automated 79380-6) message] The system which generated this result [...] Output) Lab Interpretation Abnormal (test code = 01541-6) [facility] HospitalFIBRINOGEN2020-09-21 06:06:00 Test Item Value Reference Range Interpretation Comments FIBRINOGEN LEVEL (BEAKER) (test 340 mg/dL 200-400 code = 658) Final Information (Auto Output)PT/[id number] 06:06:00 Test Item Value Reference Range Interpretation [...] = 2502-3) ZIA (test code = ZIA) Night Time Nanny ID - ADMIN Lab Interpretation (test Abnormal code = 55090-5) [facility] HospitalIron, TIBC, % sat. (without ferritin)2019-12-20 05:59:00 Test Item Value Reference Range Interpretation Comments Iron (test code = 2498-4) 92.0 ug/dL 45-170 TIBC (test code = 2500-7) 151 ug/dL 250-550 L Iron % Saturation (test 61 % 20-55 H code = 2502-3) ZIA (test code = ZIA) Night Time Nanny ID - ADMIN Lab Interpretation (test Abnormal code = 79720-5) [facility] HospitalIRON, TIBC, % SAT. (WITHOUT FERRITIN)2019-12-20 05:59:00 Test Item Value Reference Range Interpretation Comments IRON (BEAKER) (test code = 547) 92.0 ug/dL 45.0-170.0 TOTAL IRON BINDING CAPACITY 151 ug/dL 250-550 L (BEAKER) (test code = 769) IRON % SATURATION (2) (BEAKER) 61 % 20-55 H (test code = 2590) Night Time Nanny ID - ADMINCOMPREHENSIVE METABOLIC [id number] 05:55:00 Test Item Value Reference Range Interpretation [...] S NOT APPLICABLE FOR DIALYSIS PATIEN TS. Night Time Nanny ID - NWWACR-kjvuf3547-52-21 05:46:00 Test Item Value Reference Range Interpretation Comments D-Dimer, Quant (test 1.09 mg/L <0.50 H code = 72490-4) ZIA (test code = ZIA) REGARDING D-DIMER RESULTS: The 98% NPV (Negative Predictive Value) for DVT/PE exclusion is 0.50 mg/L FEU as suggested by the process helper and as approved by the FDA.Final Information (Auto Output) Lab Interpretation (test Abnormal code = 52712-0) [facility] HospitalD-knpzo6701-30-52 05:46:00 Test Item Value Reference Range Interpretation Comments D-Dimer, Quant (test 1.09 mg/L <0.50 H code = 24237-4) ZIA (test code = ZIA) REGARDING D-DIMER RESULTS: The 98% NPV (Negative Predictive Value) for DVT/PE exclusion is 0.50 mg/L FEU as suggested by the process helper and as approved by the FDA.Final Information (Auto Output) Lab Interpretation (test Abnormal code = 30487-7) [facility] HospitalD-[id number] 05:46:00 Test Item Value Reference Range Interpretation Comments D-DIMER QUANTITATIVE (BEAKER) (test 1.09 mg/L <0.50 H code = 671) REGARDING D-DIMER RESULTS: The 98% NPV (Negative Predictive Value) for DVT/PE exclusion is 0.50 mg/LFEU as suggested by the process helper and as approved by the FDA.Final Information (Auto Output)Reticulocyte [id number] 05:42:00 Test Item Value Reference Range Interpretation Comments % Retic (test code = 51178-1) 5.9 % 0.4-2.9 H Lab Interpretation (test code = Abnormal 23075-1) [facility] HospitalReticulocyte [id number] 05:42:00 Test Item Value Reference Range Interpretation Comments % Retic (test code = 31940-6) 5.9 % 0.4-2.9 H Lab Interpretation (test code = Abnormal 08887-2) [facility] HospitalRETICULOCYTE [id number] 05:42:00 Test Item Value Reference Range Interpretation Comments RETICULOCYTE COUNT PCT (BEAKER) (test 5.9 % 0.4-2.9 H code = 575) CBC W/PLT COUNT & AUTO [id number] 05:33:00 Test Item Value Reference Range Interpretation [...] U/L 107-206 ZIA (test code = ZIA) Night Time Nanny ID - ADMIN Lab Interpretation (test Normal code = 27594-9) [facility] HospitalLactate dehydrogenase (LDH)2019-12-19 21:19:00 Test Item Value Reference Range Interpretation Comments LDH (test code = 2532-0) 178 U/L 107-206 ZIA (test code = ZIA) Night Time Nanny ID - ADMIN Lab Interpretation (test Normal code = 91726-0) [facility] HospitalCTATE DEHYDROGENASE (LDH)2019-12-19 21:19:00 Test Item Value Reference Range Interpretation Comments LACTATE DEHYDROGENASE (BEAKER) (test 178 U/L 107-206 code = 635) Night Time Nanny ID - ADMINPOCT-GLUCOSE [id number] 20:47:00 Test Item Value Reference Range Interpretation Comments POC-GLUCOSE METER 102 mg/dL 70-110 : TESTED A T [facility] [address]17 (BEAKER) (test code [address], = 1538) [facility] 77 [address]: Night Time Nanny/Techni artemio ID = [id number] for Anahi Sherman POCT-GLUCOSE [id number] 16:18:00 Test Item Value Reference Range Interpretation Comments POC-GLUCOSE METER 96 mg/dL 70-110 : TESTED A T [address]17 (BEAKER) (test code = [address], 1538) [facility] 77 478: Night Time Nanny/Techni artemio ID = [id number] for Nalini Jean Baptiste Basic Metabolic [id number] 06:26:00 Test Item Value Reference Range Interpretation Comments Sodium (test code = 138 meq/L 170-520 1544-2) Potassium (test code = 3.9 meq/L 3.6-5.5 2823-3) Chloride (test code = 99 meq/L 98-106 2075-0) CO2 (test code = 30 meq/L 20-29 H 2028-9) BUN (test code = 47 mg/dL 10-26 H 3094-0) Creatinine (test code 3.04 mg/dL 0.5-1.2 H = 2160-0) Glucose (test code = 82 mg/dL 70-110 2345-7) Calcium (test code = 7.9 mg/dL 8.5-10.5 L 33922-6) EGFR (test code = 15 mL/min/1.73 [place] [address]-2) NOT ACCURATE CREATININE CLEARANCE IN PREDICTING GLOMERULAR FILTRATION RATE . ESTIMATED GFR I S NOT APPLICABLE FOR DIALYSIS PATIENTS. ZIA (test code = ZIA) Night Time Nanny ID - ADMIN Lab Interpretation Abnormal (test code = 90826-5) [facility] HospitalBasic Metabolic [id number] 06:26:00 Test Item Value Reference Range Interpretation Comments Sodium (test code = 138 meq/L 288-675 5715-2) Potassium (test code = 3.9 meq/L 3.6-5.5 2823-3) Chloride (test code = 99 meq/L 98-106 2075-0) CO2 (test code = 30 meq/L 20-29 H 2028-9) BUN (test code = 47 mg/dL 10-26 H 3094-0) Creatinine (test code 3.04 mg/dL 0.5-1.2 H = 2160-0) Glucose (test code = 82 mg/dL 70-110 2345-7) Calcium (test code = 7.9 mg/dL 8.5-10.5 L 49152-4) EGFR (test code = 15 mL/min/1.[place] [address]-2) NOT ACCURATE CREATININE CLEARANCE IN PREDICTING GLOMERULAR FILTRATION RATE . ESTIMATED GFR I S NOT APPLICABLE FOR DIALYSIS PATIENTS. ZIA (test code = ZIA) Night Time Nanny ID - ADMIN Lab Interpretation Abnormal (test code = 54134-9) [facility] HospitalBASI METABOLIC [id number] 06:26:00 Test Item Value Reference Range Interpretation [...] S NOT APPLICABLE FOR DIALYSIS PATIEN TS. Night Time Nanny ID - ADMINCBC W/PLT COUNT & AUTO [id number] 06:04:00 Test Item Value Reference Range Interpretation [...] 417) IMMATURE GRANULOCYTES-RELATIVE 0 % 0-0 PERCENT ([facility]) (test code = 2801) POCT-GLUCOSE [id number] 05:35:00 Test Item Value Reference Range Interpretation Comments POC-GLUCOSE METER 85 mg/dL 70-110 : Notified RN/MD: TESTED ([facility]) (test code = [address]) [place] [address]: Night Time Nanny/Techni artemio ID = [id number] for Keen , Zonia POCT-GLUCOSE [id number] 21:46:00 Test Item Value Reference Range Interpretation Comments POC-GLUCOSE METER 125 mg/dL 70-110 H : Notified RN/MD: TESTED ([facility]) (test code AT [address] 1538) [place] [address]: Night Time Nanny/Techni artemio ID = [id number] for Keen , Zonia POCT-GLUCOSE [id number] 16:17:00 Test Item Value Reference Range Interpretation Comments POC-GLUCOSE METER 103 mg/dL 70-110 : TESTED A T [address] (BEAKER) (test code [address] [facility], = 1538) [place] [address]: Night Time Nanny/Techni artemio ID = [id number] for Akhil rs, Shelea POCT-GLUCOSE [id number] 07:56:00 Test Item Value Reference Range Interpretation Comments POC-GLUCOSE METER 111 mg/dL 70-110 H : TESTED A T [address] (BEAKER) (test code [address] [facility], = 1538) [place] [address]: Night Time Nanny/Techni artemio ID = [id number] for Akhil rs, Shelea POCT-GLUCOSE [id number] 06:25:00 Test Item Value Reference Range Interpretation Comments POC-GLUCOSE METER 57 mg/dL 70-110 L : TESTED A T [address] (BEAKER) (test code = [address] [facility], 1538) [place] [address]: Night Time Nanny/Techni artemio ID = [id number] for Anne Busby POCT-GLUCOSE [id number] 21:55:00 Test Item Value Reference Range Interpretation Comments POC-GLUCOSE METER 76 mg/dL 70-110 : TESTED A T [address] (BEAKER) (test code = [address], 1538) [place] [address]: Night Time Nanny/Techni artemio ID = [id number] for Anne Busby POCT-GLUCOSE [id number] 18:03:00 Test Item Value Reference Range Interpretation Comments POC-GLUCOSE METER 81 mg/dL 70-110 : TESTED A T [address] (BEAKER) (test code = [address], 1538) [place] [address]: Night Time Nanny/Techni artemio ID = [id number] for Ericka Daniel POCT-GLUCOSE [id number] 12:33:00 Test Item Value Reference Range Interpretation Comments POC-GLUCOSE METER 73 mg/dL 70-110 : TESTED A T [address] (BEAKER) (test code = [address], 1538) [place] [address]: Night Time Nanny/Techni artemio ID = [id number] for Marisela Bolton Hepatitis B surface [id number] 10:49:00 Test Item Value Reference Range Interpretation Comments Hep B S Ab (test code <8.0 See_Comment [Auto mated = 38631-4) message] The system which generated this result transmit merna reference range : <8.0 mIU/mL. Th e reference range was not used to interpret this result as normal/abnormal . ZIA (test code = ZIA) Night Time Nanny ID - LEONIE Jay Lab Interpretation Normal (test code = 82401-1) [facility] B surface [id number] 10:49:00 Test Item Value Reference Range Interpretation Comments Hep B S Ab (test code <8.0 See_Comment [Auto mated = 79568-9) message] The system which generated this result transmit merna reference range : <8.0 mIU/mL. Th e reference range was not used to interpret this result as normal/abnormal . ZIA (test code = ZIA) Night Time Nanny ID - LEONIE Lab Interpretation Normal (test code = 73898-1) [facility] [id number] 10:49:00 Test Item Value Reference Range Interpretation Comments HEPATITIS B SURFACE ANTIBODY < mIU/mL <8.0 (BEAKER) (test code = 647) Night Time Nanny ID - LEONIE FHepatitis B core antibody, [id number] 10:43:00 Test Item Value Reference Range Interpretation Comments Hep B Core Total Ab Nonreactive Nonreactive (test code = 36426-9) ZAI (test code = ZIA) Night Time Nanny ID Bijal Jay Lab Interpretation (test Normal code = 69046-1) [facility] C [id number] 10:43:00 Test Item Value Reference Range Interpretation Comments Hepatitis C Ab (test Nonreactive Nonreactive code = 19596-7) ZIA (test code = ZIA) Night Time Nanny [facility] LEONIE Lab Interpretation (test Normal code = 42210-3) [facility] B core antibody, [id number] 10:43:00 Test Item Value Reference Range Interpretation Comments Hep B Core Total Ab Nonreactive Nonreactive (test code = 33459-1) ZIA (test code = ZIA) Night Time Nanny IN [place] HADLEY Lab Interpretation (test Normal code = 07124-9) [facility] C [id number] 10:43:00 Test Item Value Reference Range Interpretation Comments Hepatitis C Ab (test Nonreactive Nonreactive code = 09589-7) ZIA (test code = ZIA) Night Time Nanny [facility] LEONIE Lab Interpretation (test Normal code = 99287-8) [facility] C [id number] 10:43:00 Test Item Value Reference Range Interpretation Comments HEPATITIS C ANTIBODY (BEAKER) Nonreactive Nonreactive (test code = 367) Night Time Nanny ID Bijal [place] FHEPATITIS B CORE ANTIBODY, [id number] 10:43:00 Test Item Value Reference Range Interpretation Comments HEPATITIS B CORE TOTAL ANTIBODY Nonreactive Nonreactive (BEAKER) (test code = 497) Night Time Nanny ID - LEONIE FPOCT-GLUCOSE [id number] 06:31:00 Test Item Value Reference Range Interpretation Comments POC-GLUCOSE METER 67 mg/dL 70-110 L : TESTED A T [facility] 1317 (BEAKER) (test code = [address], 1538) [facility] 77 478: Night Time Nanny/Techni artemio ID = [id number] for Anne Busby COMPREHENSIVE METABOLIC [id number] 05:10:00 Test Item Value Reference Range Interpretation [...] S NOT APPLICABLE FOR DIALYSIS PATIEN TS. Night Time Nanny ID - ADMINCBC W/PLT COUNT & AUTO [id number] 04:36:00 Test Item Value Reference Range Interpretation [...] PERCENT (BEAKER) (test code = 2801) POCT-GLUCOSE [id number] 21:14:00 Test Item Value Reference Range Interpretation Comments POC-GLUCOSE METER 79 mg/dL 70-110 : TESTED A T [facility] 1317 (BEAKER) (test code = [address], 1538) [facility] 77 478: Night Time Nanny/Techni artemio ID = [id number] for Anne Busby POCT-GLUCOSE [id number] 18:35:00 Test Item Value Reference Range Interpretation Comments POC-GLUCOSE METER 68 mg/dL 70-110 L : Notified RN/MD: TESTED (ROBERT) (test code = AT [facility] L 1317 [facility] 1538) [place] [address]: Night Time Nanny/Techni artemio ID = [id number] for Alondra Kelley SARS-COV2/RT-PCR ([facility])2019-12-16 17:53:00 Test Item Value Reference Range Interpretation Comments SARS-COV2/RT-PCR (test Negative Not Detected, Negative, code = 2845902) See external report for linked test SARS-COV-2 PERFORMING LAB [facility] (test code = 8346246) Negative result for this test determines that [...] 564(g) of the Act.Fact Sheet for Healthcare Providers:https://www.LeanKit/sites/default/files/product/documents/Fact_Troy ortizf_MP_Wieesimea_Cnsx_VSMU-GzX-7.pdfFact Sheet for Healthcare Patients:https://www.[employer]/sites/default/files/product/ documents/Yyqs_Anxny_Crwfflnr_Yzeh_YRDA-EdC-7.pdfPerforming Laboratory:[facility], [place] [address]Bkhhdnllr B surface [id number] 16:57:00 Test Item Value Reference Range Interpretation Comments HBsAg Screen (test code = Nonreactive Nonreactive 5195-3) ZIA (test code = ZIA) Night Time Nanny ID - ADMIN Lab Interpretation (test Normal code = 39400-3) [facility] B surface [id number] 16:57:00 Test Item Value Reference Range Interpretation Comments HBsAg Screen (test code = Nonreactive Nonreactive 5195-3) ZIA (test code = ZIA) Night Time Nanny ID - ADMIN Lab Interpretation (test Normal code = 20452-8) [facility] B SURFACE [id number] 16:57:00 Test Item Value Reference Range Interpretation Comments HEPATITIS B SURFACE ANTIGEN (2) Nonreactive Nonreactive (BEAKER) (test code = 2585) Night Time Nanny ID - ADMINANG, TUNNELED CATHETER [id number] 15:06:00Reason for Central Line/PICC?->Need for hemodialysis accessReason [...] the patient's medical record by the nurse. Erection Shop Supervisor: Soto Arias M.D. Reinsurance Analyst: none. Approach: Right internal jugular vein [...] needle into the right atrium. A 4 Paraguayan micropuncture sheath was placed and a 0.035 wire was advanced into the IVC. A subcutaneous tunnel was created in the left anterior chest wall by blunt dissection. A 23 cm tip to cuff 15.5 [place] Duraflow 2 catheter was brought through the [...] Arias MDReport Verified Date/Time: 12/16/2019 15:06:45Reading Location: [facility] Radiology Reading Room IR Tunneled Catheter [id number] 15:06:00 Interface, External Ris In - 12/16/2019 [...] the patient's medical record by the nurse. Erection Shop Supervisor: Roberto Carlos Carroll istant: none. Approach: Right [...] A 23 cm tip to cuff 15.5 [place] Duraflow 2 catheter was brought through the [...] tolerated the procedure well and left the [facility] in the same condition. Results: Spot radiograph of the chest demonstrates the new dialysis catheter to lie in theexpected position with its tip overlying the superior right atrium. Impression: 1. Successful, uncomplicated placement of a left internal jugular tunneled dialysiscatheter using sonographic and fluoroscopic guidance and conscious sedation. Signed: Soto Arias MDReport Verified Date/Time: 12/16/2019 15:06:45 Reading Location: [facility] Radiology Reading [facility] 2019-12-16 15:06:00Interface, [...] the patient's medical record by the nurse. Erection Shop Supervisor: Soto Arias M.D. Reinsurance Analyst: none. Approach: Right internal jugular vein [...] A 23 cm tip to cuff 15.5 [place] Duraflow 2 catheter was brought through the [...] MDReport Verified Date/Time: 12/16/2019 15:06:45 Reading Location: [facility] Radiology Reading Room [facility] Center[facility] [id number] 14:59:00 Test Item Value Reference Range Interpretation Comments POC-GLUCOSE METER 70 mg/dL 70-110 : Notified RN[facility]MD: [facility] (test code = AT [facility] L [address]) [place] [address]: Night Time Nanny/Techni artemio ID = [id number] for Alondra Kelley POCT-GLUCOSE [id number] 11:13:00 Test Item Value Reference Range Interpretation Comments POC-GLUCOSE METER 72 mg/dL 70-110 : Notified RN/MD: TESTED ([facility]) (test code = AT [facility] L [address]) [facility] [address]: Night Time Nanny/Techni artemio ID = [id number] for Alondra Kelley RAD, CHEST, 1 VIEW, NON [id number] 09:20:00Reason for exam:->fallShould this be performed at [...] Ariaseport Verified Date/Time: 12/16/2019 09:20:06 Reading Location: [facility] Radiology Reading Room XR chest 1 view portable / [id number] 09:20:00Interface, External Ris In - 12/16/2019 9:22 [...] MDReport Verified Date/Time: 12/16/2019 09:20:06 Reading Location: [facility] Radiology Reading Room Electronically yeimi d by: SOTO ARIAS MD on 12/16/2019 09:20 [facility] [place] chest 1 view portable / [id number] 09:20:00Interface, External Ris In - 12/16/2019 9:22 [...] MDReport Verified Date/Time: 12/16/2019 09:20:06 Reading Location: [facility] Radiology Reading [facility] [place] [place] 2019-12-16 06:03:00 Test Item Value Reference Range Interpretation Comments POC-GLUCOSE METER 74 mg/dL 70-110 : Notified RN/: TESTED (BEAKER) (test code = AT [facility] [address]) [facility] [address]: Night Time Nanny/Techni artemio ID = [id number] for Zonia Healy BASIC METABOLIC [id number] 05:08:00 Test Item Value Reference Range Interpretation [...] S NOT APPLICABLE FOR DIALYSIS PATIEN TS. Night Time Nanny ID - ADMINProthrombin time/[id number] 05:01:00 Test Item Value Reference Interpretation Comments Range Protime (test code = 14.1 See_Comment H [Autom ated 5902-2) message] The system which generated this result transmitted reference range : 9.3 - 12.0 sec. The reference range was not used to interpret this result as normal/abnormal . INR (test code = 1.31 See_Comment [Automated 1951-6) message] The system which generated this result [...] Output) Lab Interpretation Abnormal (test code = 11826-0) [facility]/[id number] 05:01:00 Test Item Value Reference Interpretation Comments [...] Output) Lab Interpretation Abnormal (test code = 22285-9) [facility] HospitalPROTHROMBIN TIME/[id number] 05:01:00 Test Item Value Reference Range Interpretation [...] Information (Auto Output)CBC W/PLT COUNT & AUTO [id number] 04:46:00 Test Item Value Reference Range Interpretation [...] PERCENT (BEAKER) (test code = 2801) POCT-GLUCOSE [id number] 17:13:00 Test Item Value Reference Range Interpretation Comments POC-GLUCOSE METER 220 mg/dL 70-110 H TESTED AT [facility] 6720 (BEAKER) (test code = MATTHIASAMANDA [place] 1538) [address] BASIC METABOLIC [id number] 15:47:00 Test Item Value Reference Range Interpretation [...] NOT APPLICABLE FOR DIALYSIS PATIEN TS. POCT-GLUCOSE [id number] 11:30:00 Test Item Value Reference Range Interpretation Comments POC-GLUCOSE METER 268 mg/dL 70-110 H TESTED AT [facility] 6720 (BEAKER) (test code = [facility] D[place] 1538) [address] POCT-GLUCOSE [id number] 07:08:00 Test Item Value Reference Range Interpretation Comments POC-GLUCOSE METER 208 mg/dL 70-110 H TESTED AT [facility] 6720 (BEAKER) (test code = [facility] [place] 1538) [address] CALCIUM, [id number] 06:47:00 Test Item Value Reference Range Interpretation Comments CALCIUM IONIZED (BEAKER) (test 1.11 mmol/L 1.12-1.27 L code = 698) PH, BLOOD (BEAKER) (test code = 7.40 1810) BASIC METABOLIC [id number] 06:40:00 Test Item Value Reference Range Interpretation [...] S NOT APPLICABLE FOR DIALYSIS PATIEN TS. [id number] 06:33:00 Test Item Value Reference Range Interpretation Comments PHOSPHORUS (BEAKER) (test code = 5.1 mg/dL 2.3-4.7 H 604) [id number] 06:33:00 Test Item Value Reference Range Interpretation Comments MAGNESIUM (BEAKER) (test code = 2.0 mg/dL 1.6-2.6 627) LACTIC ACID, VENOUS, WHOLE [id number] 06:02:00 Test Item Value Reference Range Interpretation Comments LACTATE BLOOD VENOUS (2) (BEAKER) 0.8 mmol/L 0.5-2.2 (test code = 2872) Effective 08/02/2015: Units/Reference Range ChangeNew: 0.5-2.2 mmol/L Previous: 5-20 mg/dLCBC W/PLT COUNT & AUTO [id number] 05:54:00 Test Item Value Reference Range Interpretation [...] PERCENT (BEAKER) (test code = 2801) POCT-GLUCOSE [id number] 21:30:00 Test Item Value Reference Range Interpretation Comments POC-GLUCOSE METER 248 mg/dL 70-110 H TESTED AT [facility] 6720 (BEAKER) (test code = JULIANO Osborne [facility] 1538) [address] RAD, [id number] 21:22:00Reason for exam:->fall, tailbone painFINAL REPORT RAD, [...] Verified Date/Time: 09/04/2017 21:22:03 Reading Location: [address] Reading Room POCT-GLUCOSE [id number] 17:37:00 Test Item Value Reference Range Interpretation Comments POC-GLUCOSE METER 222 mg/dL 70-110 H TESTED AT [place] [address] (BEAKER) (test code = JULIANO Osborne [facility] 1538) [address] POCT-GLUCOSE [id number] 13:55:00 Test Item Value Reference Range Interpretation Comments POC-GLUCOSE METER 194 mg/dL 70-110 H TESTED AT [place] [address] ([facility] (test code = [facility] 1538) [address] POCT-GLUCOSE [id number] 12:34:00 Test Item Value Reference Range Interpretation Comments POC-GLUCOSE METER 229 mg/dL 70-110 H TESTED AT [place] [address] ([facility] (test code = [facility] 1538) [address] POCT-GLUCOSE [id number] 08:00:00 Test Item Value Reference Range Interpretation Comments POC-GLUCOSE METER 159 mg/dL 70-110 H TESTED AT [place] [address] ([facility] (test code = [facility] 1538) [address] CALCIUM, [id number] 06:00:00 Test Item Value Reference Range Interpretation Comments CALCIUM IONIZED (BEAKER) (test 1.05 mmol/L 1.12-1.27 L code = 698) PH, BLOOD (BEAKER) (test code = 7.45 1810) [id number] 05:59:00 Test Item Value Reference Range Interpretation Comments PHOSPHORUS (BEAKER) (test code = 4.8 mg/dL 2.3-4.7 H 604) [id number] 05:59:00 Test Item Value Reference Range Interpretation Comments MAGNESIUM (BEAKER) (test code = 2.0 mg/dL 1.6-2.6 627) BASIC METABOLIC [id number] 05:59:00 Test Item Value Reference Range Interpretation [...] = 380) CBC W/PLT COUNT & AUTO [id number] 05:32:00 Test Item Value Reference Range Interpretation [...] PERCENT (BEAKER) (test code = 2801) POCT-GLUCOSE [id number] 20:36:00 Test Item Value Reference Range Interpretation Comments POC-GLUCOSE METER 211 mg/dL 70-110 H TESTED AT [place] [address] ([facility] (test code = [facility] 1538) [address] CREATININE, RANDOM [id number] 19:55:00 Test Item Value Reference Range Interpretation Comments CREATININE URINE (BEAKER) (test 16.1 mg/dL code = 375) Reference Range: No NormalsPROTEIN, RANDOM [id number] 19:55:00 Test Item Value Reference Range Interpretation Comments PROTEIN, URINE (BEAKER) (test code 102 mg/dL 0-14 H = 1569) POCT-GLUCOSE [id number] 18:04:00 Test Item Value Reference Range Interpretation Comments POC-GLUCOSE METER 177 mg/dL 70-110 H TESTED AT [place] [address] ([facility] (test code = [facility] 1538) [address] POCT-GLUCOSE [id number] 11:59:00 Test Item Value Reference Range Interpretation Comments POC-GLUCOSE METER 244 mg/dL 70-110 H TESTED AT [place] [address] ([facility] (test code = [facility] 1538) [address] POCT-GLUCOSE [id number] 07:53:00 Test Item Value Reference Range Interpretation Comments POC-GLUCOSE METER 160 mg/dL 70-110 H TESTED AT [facility] 6720 (BEAKER) (test code = [place]IANO [place] 1538) [address] BASIC METABOLIC [id number] 05:29:00 Test Item Value Reference Range Interpretation [...] S NOT APPLICABLE FOR DIALYSIS PATIEN TS. [id number] 05:21:00 Test Item Value Reference Range Interpretation Comments MAGNESIUM (BEAKER) (test code = 2.1 mg/dL 1.6-2.6 627) HEPATIC FUNCTION [id number] 05:21:00 Test Item Value Reference Range Interpretation [...] code = 23 U/L 6-55 347) TROPONIN [id number] 05:18:00 Test Item Value Reference Range Interpretation [...] PERCENT (BEAKER) (test code = 2801) TROPONIN [id number] 23:40:00 Test Item Value Reference Range Interpretation [...] acidosis, acute neurological disease, and persistent tachyarrhythmia.POCT-GLUCOSE [id number] 22:51:00 Test Item Value Reference Range Interpretation Comments POC-GLUCOSE METER 214 mg/dL 70-110 H TESTED AT [facility] 6720 ([facility]) (test code = MATTHIASAMANDA Dylon [place] 1538) [address] RAD, CHEST, 1 VIEW, NON [id number] 21:42:00Reason for exam:->CHEST PAINShould this be performed at the bedside?->YesFINAL REPORT RAD, CHEST, 1 VIEW, NON DEPT INDICATION: CHEST PAIN COMPARISON: Chest x-ray 4 weeks ago TECHNIQUE: Single frontal view of the chest. IMPRESSION:Cardiomegaly.Mild pulmonary interstitial edema with a small right- sided effusion.No acute osseous abnormality. Signed: Dario Abraham MDReport Verified Date/Time: 09/02/2017 21:42:11 Reading Location: [facility] C013T [facility] Reading Room CREATININE, RANDOM [id number] 21:10:00 Test Item Value Reference Range Interpretation Comments CREATININE URINE (BEAKER) (test 35.5 mg/dL code = 375) Reference Range: No NormalsSODIUM, RANDOM [id number] 21:10:00 Test Item Value Reference Range Interpretation Comments SODIUM URINE (BEAKER) (test code = 80 meq/L 243) Reference Range: No NormalsURINALYSIS W/ [id number] 20:59:00 Test Item Value Reference Range Interpretation [...] SOURCE(BEAKER) (test code = 2795) BASIC METABOLIC [id number] 16:49:00 Test Item Value Reference Range Interpretation [...] S NOT APPLICABLE FOR DIALYSIS PATIEN TS. PT/[id number] 16:38:00 Test Item Value Reference Range Interpretation [...] (BEAKER) (test code = 700) BASIC METABOLIC [id number] 13:43:00 Test Item Value Reference Range Interpretation [...] NOT APPLICABLE FOR DIALYSIS PATIEN TS. POCT-GLUCOSE [id number] 12:44:00 Test Item Value Reference Range Interpretation Comments POC-GLUCOSE METER 283 mg/dL 70-110 H TESTED AT [facility] 6720 (BEAKER) (test code = JULIANO Osborne [place] 1538) [address] CALCIUM, [id number] 07:03:00 Test Item Value Reference Range Interpretation Comments CALCIUM IONIZED (BEAKER) (test 1.02 mmol/L 1.12-1.27 L code = 698) PH, BLOOD (BEAKER) (test code = 7.43 1810) [id number] 05:28:00 Test Item Value Reference Range Interpretation Comments PHOSPHORUS (BEAKER) (test code = 3.3 mg/dL 2.3-4.7 604) [id number] 05:28:00 Test Item Value Reference Range Interpretation Comments MAGNESIUM (BEAKER) (test code = 1.5 mg/dL 1.6-2.6 L 627) BASIC METABOLIC [id number] 05:28:00 Test Item Value Reference Range Interpretation [...] PATIEN TS. CBC W/PLT COUNT & AUTO [id number] 05:06:00 Test Item Value Reference Range Interpretation [...] PERCENT (BEAKER) (test code = 2801) POCT-GLUCOSE [id number] 21:08:00 Test Item Value Reference Range Interpretation Comments POC-GLUCOSE METER 202 mg/dL 70-110 H TESTED AT [place] [address] ([facility]) (test code = JULIANO Osborne [facility] 1538) [address] POCT-GLUCOSE [id number] 16:50:00 Test Item Value Reference Range Interpretation Comments POC-GLUCOSE METER 287 mg/dL 70-110 H TESTED AT [place] [address] ([facility]) (test code = JULIANO Osborne [facility] 1538) [address] POCT-GLUCOSE [id number] 12:21:00 Test Item Value Reference Range Interpretation Comments POC-GLUCOSE METER 213 mg/dL 70-110 H TESTED AT [place] [address] ([facility]) ([facility] = [facility] 1538) [address] POCT-GLUCOSE [id number] 08:28:00 Test Item Value Reference Range Interpretation Comments POC-GLUCOSE METER 178 mg/dL 70-110 H TESTED AT [place] [address] ([facility]) (test code = [facility] 1538) [address] CALCIUM, [id number] 07:06:00 Test Item Value Reference Range Interpretation Comments CALCIUM IONIZED (BEAKER) (test 0.99 mmol/L 1.12-1.27 L code = 698) PH, BLOOD (BEAKER) (test code = 7.42 1810) [id number] 05:37:00 Test Item Value Reference Range Interpretation Comments PHOSPHORUS (BEAKER) (test code = 3.5 mg/dL 2.3-4.7 604) [id number] 05:37:00 Test Item Value Reference Range Interpretation Comments MAGNESIUM (BEAKER) (test code = 1.6 mg/dL 1.6-2.6 627) BASIC METABOLIC [id number] 05:37:00 Test Item Value Reference Range Interpretation [...] PATIEN TS. CBC W/PLT COUNT & AUTO [id number] 05:07:00 Test Item Value Reference Range Interpretation [...] PERCENT (BEAKER) (test code = 2801) POCT-GLUCOSE [id number] 21:24:00 Test Item Value Reference Range Interpretation Comments POC-GLUCOSE METER 255 mg/dL 70-110 H TESTED AT [facility] 6720 (BEAKER) (test code = JULIANO [place]YE[place] 1538) [address] POCT-GLUCOSE [id number] 17:11:00 Test Item Value Reference Range Interpretation Comments POC-GLUCOSE METER 244 mg/dL 70-110 H TESTED AT [facility] 6720 (BEAKER) (test code = JULIANO [place] 1538) [address] POCT-GLUCOSE [id number] 11:54:00 Test Item Value Reference Range Interpretation Comments POC-GLUCOSE METER 209 mg/dL 70-110 H TESTED AT [facility] 6720 [facility] (test code = JULIANO Osborne [facility] 1538) [address] POCT-GLUCOSE [id number] 08:15:00 Test Item Value Reference Range Interpretation Comments POC-GLUCOSE METER 132 mg/dL 70-110 H TESTED AT [facility] 6720 ([facility] (test code = JULIANO Osborne [facility] 1538) [address] RAD, CHEST, 1 VIEW, NON [id number] 07:44:00Reason for exam:->edemaShould this be performed at the bedside?->YesFINAL REPORT Chest one view AP 08/07/2017 7:44 AM CLINICAL INDICATION: edema COMPARISON: 05/31/2017 IMPRESSION: Cardiomediastinal contours are stable. There is mild pulmonary edema,asymmetric to the right. There are trace bilateral pleural effusions, with bibasilar linear atelectasis. Sternotomy wires remain midline. Signed: Regan Cespedes Verified Date/Time: 08/07/2017 07:44:22 Reading Location: [facility] Radiology Reading Room [id number] 05:30:00 Test Item Value Reference Range Interpretation Comments FERRITIN (BEAKER) (test code = 361) 87 ng/mL 5-275 CBC W/PLT COUNT & AUTO [id number] 05:21:00 Test Item Value Reference Range Interpretation [...] % 20-55 L (test code = 2590) [id number] 05:11:00 Test Item Value Reference Range Interpretation Comments PHOSPHORUS (BEAKER) (test code = 3.6 mg/dL 2.3-4.7 604) [id number] 05:11:00 Test Item Value Reference Range Interpretation Comments MAGNESIUM (BEAKER) (test code = 2.0 mg/dL 1.6-2.6 627) BASIC METABOLIC [id number] 05:11:00 Test Item Value Reference Range Interpretation [...] H (BEAKER) (test code = 700) CALCIUM, [id number] 04:58:00 Test Item Value Reference Range Interpretation Comments CALCIUM IONIZED (BEAKER) (test 1.04 mmol/L 1.12-1.27 L code = 698) PH, BLOOD (BEAKER) (test code = 7.41 1810) RETICULOCYTE [id number] 04:51:00 Test Item Value Reference Range Interpretation Comments RETICULOCYTE COUNT PCT (BEAKER) (test 1.2 % 0.5-1.7 code = 575) POCT-GLUCOSE [id number] 20:49:00 Test Item Value Reference Range Interpretation Comments POC-GLUCOSE METER 202 mg/dL 70-110 H TESTED AT [facility] 6720 (BEAKER) (test code = JULIANO [place] 1538) [address] CREATININE, RANDOM [id number] 18:38:00 Test Item Value Reference Range Interpretation Comments CREATININE URINE (BEAKER) (test 56.3 mg/dL code = 375) Reference Range: No NormalsPROTEIN, RANDOM [id number] 18:38:00 Test Item Value Reference Range Interpretation Comments PROTEIN, URINE (BEAKER) (test code 189 mg/dL 0-14 H = 1569) URINALYSIS W/ [id number] 18:34:00 Test Item Value Reference Range Interpretation [...] 516) SOURCE(BEAKER) (test code = Urine, Voided 6662) POCT-GLUCOSE [id number] 17:38:00 Test Item Value Reference Range Interpretation Comments POC-GLUCOSE METER 143 mg/dL 70-110 H TESTED AT [place] [address] ([facility]) (test code = JULIANO Osborne [place] 1538) [address] POCT-GLUCOSE [id number] 12:30:00 Test Item Value Reference Range Interpretation Comments POC-GLUCOSE METER 218 mg/dL 70-110 H TESTED AT [place] [address] ([facility]) (test code = JULIANO Osborne [place] 1538) [address] POCT-GLUCOSE [id number] 08:00:00 Test Item Value Reference Range Interpretation Comments POC-GLUCOSE METER 134 mg/dL 70-110 H TESTED AT [place] [address] ([facility]) (test code = JULIANO Osborne [facility] 1538) [address] CBC W/PLT COUNT & AUTO [id number] 04:23:00 Test Item Value Reference Range Interpretation [...] (BEAKER) (test code = 2801) BASIC METABOLIC [id number] 04:13:00 Test Item Value Reference Range Interpretation [...] S NOT APPLICABLE FOR DIALYSIS PATIEN TS. [id number] 04:10:00 Test Item Value Reference Range Interpretation Comments PHOSPHORUS (BEAKER) (test code = 4.9 mg/dL 2.3-4.7 H 604) [id number] 04:10:00 Test Item Value Reference Range Interpretation Comments MAGNESIUM (BEAKER) (test code = 1.4 mg/dL 1.6-2.6 L 627) [id number] 04:08:00 Test Item Value Reference Range Interpretation Comments FIBRINOGEN LEVEL (BEAKER) (test 548 mg/dl 225-434 H code = 658) [id number] 04:08:00 Test Item Value Reference Range Interpretation Comments PARTIAL THROMBOPLASTIN TIME 37.7 seconds 22.5-36.0 H (BEAKER) (test code = 760) PROTHROMBIN [id number] 04:07:00 Test Item Value Reference Range Interpretation Comments PROTIME (BEAKER) (test code = 16.2 seconds 11.7-14.7 H 759) INR (BEAKER) (test code = 370) 1.3 <=5.9 RECOMMENDED COUMADIN/WARFARIN INR THERAPY RANGESSTANDARD DOSE: 2.0 - 3.0 Includes: PROPHYLAXIS forvenous thrombosis, systemic embolization; TREATMENT for venous thrombosis and/or pulmonary embolus.HIGH RISK: Target INR is 2.5-3.5 for patients with mechanical heart valves.[id number] 16:59:00 Test Item Value Reference Range Interpretation Comments ACTIVATED CLOTTING TIME 219 sec TEST ED AT [facility] 6720 (BEAKER) (test code = [place]IANO [place] 441) [address] BASIC METABOLIC [id number] 14:25:00 Test Item Value Reference Range Interpretation [...] NOT APPLICABLE FOR DIALYSIS PATIEN TS. POCT-GLUCOSE [id number] 13:21:00 Test Item Value Reference Range Interpretation Comments POC-GLUCOSE METER 170 mg/dL 70-110 H TESTED AT [facility] 6720 (BEAKER) (test code = JULIANO [place] 1538) [address] POTASSIUM-STAT [id number] 13:20:00 Test Item Value Reference Range Interpretation Comments POTASSIUM (BEAKER) (test code = 4.2 meq/L 3.6-5.5 379) SODIUM NA-STAT [id number] 13:20:00 Test Item Value Reference Range Interpretation Comments SODIUM (BEAKER) (test code = 381) 133 meq/L 135-148 L HGB/HCT (H&H) - STAT [id number] 12:34:00 Test Item Value Reference Range Interpretation Comments HEMOGLOBIN (BEAKER) (test code = 10.8 g/dL 12.0-15.0 L 410) HEMATOCRIT (BEAKER) (test code = 32.0 % 36.0-45.0 L 411) POTASSIUM-STAT [id number] 08:15:00 Test Item Value Reference Range Interpretation Comments POTASSIUM (BEAKER) (test code = 4.1 meq/L 3.6-5.5 379) BLOOD GAS, [id number] 08:15:00 Test Item Value Reference Range Interpretation [...] code = 1819) 70.0 % SODIUM NA-STAT [id number] 08:15:00 Test Item Value Reference Range Interpretation Comments SODIUM (BEAKER) (test code = 381) 130 meq/L 135-148 L GLUCOSE-STAT [id number] 08:15:00 Test Item Value Reference Range Interpretation Comments GLUCOSE RANDOM (BEAKER) (test code 172 mg/dL 70-110 H = 652) HGB/HCT (H&H) - STAT [id number] 08:15:00 Test Item Value Reference Range Interpretation Comments HEMOGLOBIN (BEAKER) (test code = 8.8 g/dL 12.0-15.0 L 410) HEMATOCRIT (BEAKER) (test code = 26.0 % 36.0-45.0 L 411) BASIC METABOLIC [id number] 07:37:00 Test Item Value Reference Range Interpretation [...] PATIEN TS. CBC W/PLT COUNT & AUTO [id number] 07:20:00 Test Item Value Reference Range Interpretation [...] PERCENT (BEAKER) (test code = 2801) POCT-GLUCOSE [id number] 07:03:00 Test Item Value Reference Range Interpretation Comments POC-GLUCOSE METER 186 mg/dL 70-110 H TESTED AT [facility] 6720 [facility] (test code = [facility] Dylon [place] 1538) [address] B-TYPE NATRIURETIC FACTOR (BNP)2017-06-10 12:44:00 Test Item Value Reference Range Interpretation Comments B-TYPE NATRIURETIC PEPTIDE 1264 pg/mL 0-100 H (BEAKER) (test code = 700) [id number] 12:36:00 Test Item Value Reference Range Interpretation Comments MAGNESIUM (BEAKER) (test code = 1.6 mg/dL 1.6-2.6 627) BASIC METABOLIC [id number] 12:36:00 Test Item Value Reference Range Interpretation [...] NOT APPLICABLE FOR DIALYSIS PATIEN TS. POCT-GLUCOSE [id number] 12:04:00 Test Item Value Reference Range Interpretation Comments POC-GLUCOSE METER 274 mg/dL 70-110 H TESTED AT [facility] 6720 [facility] (test code = [facility] Dylon [place] 1538) [address] POCT-GLUCOSE [id number] 07:21:00 Test Item Value Reference Range Interpretation Comments POC-GLUCOSE METER 137 mg/dL 70-110 H TESTED AT [facility] 6720 [facility] (test code = [facility] [place] 8317) [address] BASIC METABOLIC [id number] 05:10:00 Test Item Value Reference Range Interpretation [...] 150-450 code = 756) MEAN PLATELET VOLUME ([facility]) 9.5 fL 9.4-12.3 (test code = 754) NUCLEATED RED BLOOD CELLS 0 /100 WBC 0-0 ([facility]) (test code = 413) POCT-GLUCOSE [id number] 21:23:00 Test Item Value Reference Range Interpretation Comments POC-GLUCOSE METER 240 mg/dL 70-110 H TESTED AT [place] [address] ([facility]) (test code = [facility] 1538) [address] POCT-GLUCOSE [id number] 16:42:00 Test Item Value Reference Range Interpretation Comments POC-GLUCOSE METER 234 mg/dL 70-110 H TESTED AT [place] [address] ([facility]) (test code = [facility] 1538) [address] POCT-GLUCOSE [id number] 13:22:00 Test Item Value Reference Range Interpretation Comments POC-GLUCOSE METER 166 mg/dL 70-110 H TESTED AT [place] [address] ([facility]) (test code = [facility] 1538) [address] RAD, CHEST, 1 VIEW, NON [id number] 09:43:00Reason for exam:->s/p ACBShould this be performed [...] B1 C013X Ortho Consult Reading Room POCT-GLUCOSE [id number] 06:57:00 Test Item Value Reference Range Interpretation Comments POC-GLUCOSE METER 136 mg/dL 70-110 H TESTED AT [place] [address] ([facility]) (test code = [facility] 1538) [address] CALCIUM, [id number] 06:41:00 Test Item Value Reference Range Interpretation Comments CALCIUM IONIZED (BEAKER) (test 1.10 mmol/L 1.12-1.27 L code = 698) PH, BLOOD (BEAKER) (test code = 7.42 1810) [id number] 06:17:00 Test Item Value Reference Range Interpretation Comments PHOSPHORUS (BEAKER) (test code = 3.3 mg/dL 2.3-4.7 604) [id number] 06:17:00 Test Item Value Reference Range Interpretation Comments MAGNESIUM (BEAKER) (test code = 1.8 mg/dL 1.6-2.6 627) BASIC METABOLIC [id number] 06:17:00 Test Item Value Reference Range Interpretation [...] PATIEN TS. CBC W/PLT COUNT & AUTO [id number] 05:07:00 Test Item Value Reference Range Interpretation [...] PERCENT (BEAKER) (test code = 2801) POCT-GLUCOSE [id number] 20:56:00 Test Item Value Reference Range Interpretation Comments POC-GLUCOSE METER 196 mg/dL 70-110 H TESTED AT [facility] 6720 (BEAKER) (test code = JULIANO REYE[place] 1538) [address] POCT-GLUCOSE [id number] 16:42:00 Test Item Value Reference Range Interpretation Comments POC-GLUCOSE METER 196 mg/dL 70-110 H TESTED AT [facility] 6720 (BEAKER) (test code = JULIANO Osborne [place] 1538) [address] POCT-GLUCOSE [id number] 11:45:00 Test Item Value Reference Range Interpretation Comments POC-GLUCOSE METER 215 mg/dL 70-110 H TESTED AT [facility] 6720 (BEAKER) (test code = JULIANO Osborne [facility] 1538) [address] RAD, CHEST, 1 VIEW, NON [id number] 11:15:00Reason for exam:->s/p ACBShould this be performed at the bedside?->YesFINAL REPORT Chest one view compared to May 28, 2017 Discussion: Airspace opacities are seen in both lower lung regions, probably atelectasis. Correlate clinically for infection. I could not exclude small effusions. No pneumothorax. Upper lungs clear. Signed: Jeannette Nava Verified Date/Time: 05/30/2017 11:15:07 Reading Location: [facility] Radiology Reading Room CALCIUM, [id number] 09:21:00 Test Item Value Reference Range Interpretation Comments CALCIUM IONIZED (BEAKER) (test 1.11 mmol/L 1.12-1.27 L code = 698) PH, BLOOD (BEAKER) (test code = 7.36 1810) BASIC METABOLIC [id number] 07:37:00 Test Item Value Reference Range Interpretation [...] S NOT APPLICABLE FOR DIALYSIS PATIEN TS. [id number] 07:28:00 Test Item Value Reference Range Interpretation Comments PHOSPHORUS (BEAKER) (test code = 3.8 mg/dL 2.3-4.7 604) [id number] 07:28:00 Test Item Value Reference Range Interpretation Comments MAGNESIUM (BEAKER) (test code = 1.9 mg/dL 1.6-2.6 627) CBC W/PLT COUNT & AUTO [id number] 07:26:00 Test Item Value Reference Range Interpretation [...] PERCENT (BEAKER) (test code = 2801) POCT-GLUCOSE [id number] 07:21:00 Test Item Value Reference Range Interpretation Comments POC-GLUCOSE METER 146 mg/dL 70-110 H TESTED AT [place] [address] ([facility] (test code = [facility] Dylon [facility] 1538) [address] POCT-GLUCOSE [id number] 22:02:00 Test Item Value Reference Range Interpretation Comments POC-GLUCOSE METER 201 mg/dL 70-110 H TESTED AT [place] [address] ([facility] (test code = [facility] 1538) [address] POCT-GLUCOSE [id number] 18:27:00 Test Item Value Reference Range Interpretation Comments POC-GLUCOSE METER 240 mg/dL 70-110 H TESTED AT [place] [address] (BEAKER) (test code = [facility] [employer] [facility] 1538) [address] POCT-GLUCOSE [id number] 12:13:00 Test Item Value Reference Range Interpretation Comments POC-GLUCOSE METER 193 mg/dL 70-110 H TESTED AT [place] [id number] ([facility] (test code = [facility] [employer] [facility] 1538) [address] POCT-GLUCOSE [id number] 09:02:00 Test Item Value Reference Range Interpretation Comments POC-GLUCOSE METER 132 mg/dL 70-110 H TESTED AT [facility] 6720 (BEAKER) (test code = J[place]IANO [place] 1538) [address] CALCIUM, [id number] 05:42:00 Test Item Value Reference Range Interpretation Comments CALCIUM IONIZED (BEAKER) (test 1.12 mmol/L 1.12-1.27 code = 698) PH, BLOOD (BEAKER) (test code = 7.34 1810) COMPREHENSIVE METABOLIC [id number] 05:33:00 Test Item Value Reference Range Interpretation [...] S NOT APPLICABLE FOR DIALYSIS PATIEN TS. [id number] 05:32:00 Test Item Value Reference Range Interpretation Comments PHOSPHORUS (BEAKER) (test code = 3.6 mg/dL 2.3-4.7 604) [id number] 05:32:00 Test Item Value Reference Range Interpretation Comments MAGNESIUM (BEAKER) (test code = 2.2 mg/dL 1.6-2.6 627) CBC W/PLT COUNT & AUTO [id number] 05:01:00 Test Item Value Reference Range Interpretation [...] PERCENT (BEAKER) (test code = 2801) POCT-GLUCOSE [id number] 21:04:00 Test Item Value Reference Range Interpretation Comments POC-GLUCOSE METER 165 mg/dL 70-110 H TESTED AT [place] [address] ([facility]) (test code = [facility] Dylon [facility] 1538) [address] POCT-GLUCOSE [id number] 17:30:00 Test Item Value Reference Range Interpretation Comments POC-GLUCOSE METER 236 mg/dL 70-110 H TESTED AT [place] [address] ([facility]) (test code = [facility] Dylon [facility] 1538) [address] RAD, CHEST, 1 VIEW, NON [id number] 13:53:00Reason for exam:->assess for ill-defined opacityShould this [...] MDReport Verified Date/Time: 05/28/2017 13:53:03 Reading Location: [address] Radiology Reading Room POCT-GLUCOSE [id number] 11:53:00 Test Item Value Reference Range Interpretation Comments POC-GLUCOSE METER 215 mg/dL 70-110 H TESTED AT [place] [address] ([facility]) (test code = [facility] Dylon [facility] 1538) [address] POCT-GLUCOSE [id number] 08:32:00 Test Item Value Reference Range Interpretation Comments POC-GLUCOSE METER 168 mg/dL 70-110 H TESTED AT [facility] 6720 (BEAKER) (test code = JULIANO REYEZ 1538) [address] CALCIUM, [id number] 05:44:00 Test Item Value Reference Range Interpretation Comments CALCIUM IONIZED (BEAKER) (test 1.09 mmol/L 1.12-1.27 L code = 698) PH, BLOOD (BEAKER) (test code = 7.38 1810) [id number] 05:44:00 Test Item Value Reference Range Interpretation Comments PHOSPHORUS (BEAKER) (test code = 3.5 mg/dL 2.3-4.7 604) [id number] 05:44:00 Test Item Value Reference Range Interpretation Comments MAGNESIUM (BEAKER) (test code = 1.9 mg/dL 1.6-2.6 627) BASIC METABOLIC [id number] 05:44:00 Test Item Value Reference Range Interpretation [...] PATIEN TS. CBC W/PLT COUNT & AUTO [id number] 05:05:00 Test Item Value Reference Range Interpretation [...] PERCENT (BEAKER) (test code = 2801) POCT-GLUCOSE [id number] 21:03:00 Test Item Value Reference Range Interpretation Comments POC-GLUCOSE METER 173 mg/dL 70-110 H TESTED AT [place] [address] ([facility]) (test code = JULIANO Osborne [facility] 1538) [address] [id number] 18:15:00 Test Item Value Reference Range Interpretation Comments ACTIVATED CLOTTING TIME 147 sec TEST ED AT [place] [address] ([facility]) (test code = JULIANO Osborne [facility] 441) [address] [id number] 18:15:00 Test Item Value Reference Range Interpretation Comments ACTIVATED CLOTTING TIME 246 sec TEST ED AT [place] [address] ([facility]) (test code = JULIANO Osborne [facility] 441) [address] POCT-GLUCOSE [id number] 12:39:00 Test Item Value Reference Range Interpretation Comments POC-GLUCOSE METER 219 mg/dL 70-110 H TESTED AT [place] [address] ([facility]) (test code = JULIANO Osborne [facility] 1538) [address] RAD, CHEST, 1 VIEW, NON [id number] 10:11:00Reason for exam:->pl effusionShould this be performed at the bedside?->YesFINAL REPORT Chest one view compared to May 26 Discussion: There is cardiac prominence. Upper lungs are clear. Ill-defined basilar densities are similar probably atelectasis. No gross effusion or pneumothorax with bilateral chest tubes in place. Signed: Jeannette Nava Verified Date/Time: 05/27/2017 10:11:44 Reading Location: [facility] Radiology Reading Room POCT-GLUCOSE METER 2017-05-27 07:05:00 Test Item Value Reference Range Interpretation Comments POC-GLUCOSE METER 167 mg/dL 70-110 H TESTED AT [place] [address] ([facility]) (test code = JULIANO Osborne [facility] 1538) [address] CALCIUM, [id number] 06:20:00 Test Item Value Reference Range Interpretation Comments CALCIUM IONIZED ([facility]) (test 0.98 mmol/L 1.12-1.27 L code = 698) PH, BLOOD ([facility]) (test code = 7.50 1810) [id number] 04:56:00 Test Item Value Reference Range Interpretation Comments PHOSPHORUS (BEAKER) (test code = 2.6 mg/dL 2.3-4.7 604) [id number] 04:56:00 Test Item Value Reference Range Interpretation Comments MAGNESIUM (BEAKER) (test code = 2.0 mg/dL 1.6-2.6 627) BASIC METABOLIC [id number] 04:56:00 Test Item Value Reference Range Interpretation [...] PATIEN TS. CBC W/PLT COUNT & AUTO [id number] 04:36:00 Test Item Value Reference Range Interpretation [...] PERCENT (BEAKER) (test code = 2801) POCT-GLUCOSE [id number] 21:29:00 Test Item Value Reference Range Interpretation Comments POC-GLUCOSE METER 147 mg/dL 70-110 H TESTED AT [facility] 6720 [facility] (test code = [place]IANO [place] 1538) [address] POCT-GLUCOSE [id number] 17:51:00 Test Item Value Reference Range Interpretation Comments POC-GLUCOSE METER 224 mg/dL 70-110 H TESTED AT [facility] 6720 ([facility] (test code = [place]IANO [place] 1538) [address] POCT-GLUCOSE [id number] 13:53:00 Test Item Value Reference Range Interpretation Comments POC-GLUCOSE METER 182 mg/dL 70-110 H TESTED AT [facility] 6720 ([facility]) (test code = JULIANO Osborne [facility] 1538) [address] RAD, CHEST, 1 VIEW, NON [id number] 08:44:00Reason for exam:->pl effusionShould this be performed [...] Ortegaeport Verified Date/Time: 05/26/2017 08:44:25 Reading Location: [address] Radiology Reading Room POCT- GLUCOSE [id number] 07:43:00 Test Item Value Reference Range Interpretation Comments POC-GLUCOSE METER 113 mg/dL 70-110 H TESTED AT [place] [address] ([facility]) (test code = JULIANO Osborne [facility] 1538) [address] CALCIUM, [id number] 06:31:00 Test Item Value Reference Range Interpretation Comments CALCIUM IONIZED (BEAKER) (test 1.07 mmol/L 1.12-1.27 L code = 698) PH, BLOOD (BEAKER) (test code = 7.38 1810) [id number] 04:51:00 Test Item Value Reference Range Interpretation Comments PHOSPHORUS (BEAKER) (test code = 3.2 mg/dL 2.3-4.7 604) [id number] 04:51:00 Test Item Value Reference Range Interpretation Comments MAGNESIUM (BEAKER) (test code = 2.1 mg/dL 1.6-2.6 627) BASIC METABOLIC [id number] 04:51:00 Test Item Value Reference Range Interpretation [...] PATIEN TS. CBC W/PLT COUNT & AUTO [id number] 04:27:00 Test Item Value Reference Range Interpretation [...] PERCENT (BEAKER) (test code = 2801) POCT-GLUCOSE [id number] 23:48:00 Test Item Value Reference Range Interpretation Comments POC-GLUCOSE METER 123 mg/dL 70-110 H TESTED AT [place] [address] ([facility] (test code = [facility] 1538) [address] POCT-GLUCOSE [id number] 16:46:00 Test Item Value Reference Range Interpretation Comments POC-GLUCOSE METER 178 mg/dL 70-110 H TESTED AT [place] [address] ([facility] (test code = [facility] 1538) [address] BASIC METABOLIC [id number] 05:53:00 Test Item Value Reference Range Interpretation [...] S NOT APPLICABLE FOR DIALYSIS PATIEN TS. [id number] 05:52:00 Test Item Value Reference Range Interpretation Comments PHOSPHORUS (BEAKER) (test code = 4.2 mg/dL 2.3-4.7 604) [id number] 05:52:00 Test Item Value Reference Range Interpretation Comments MAGNESIUM (BEAKER) (test code = 2.3 mg/dL 1.6-2.6 627) CALCIUM, [id number] 05:27:00 Test Item Value Reference Range Interpretation Comments CALCIUM IONIZED (BEAKER) (test 1.12 mmol/L 1.12-1.27 code = 698) PH, BLOOD (BEAKER) (test code = 7.38 1810) CBC W/PLT COUNT & AUTO [id number] 05:07:00 Test Item Value Reference Range Interpretation [...] = 2801) RAD, CHEST, 1 VIEW, NON [id number] 04:45:00Reason for exam:->pl effusionShould this be performed at the bedside?->YesFINAL REPORT RAD, CHEST, 1 VIEW, NON DEPT INDICATION: pl effusion COMPARISON:Prior day's exam FINDINGS: Portable frontal view of the chest. IMPRESSION: Support Lines: Stable.Lungs and pleura: Unchanged airspace and pleural opacities. No pneumothorax.Heart and mediastinum: Stable contours. Stable surgical changes.Additional findings: None. Signed: JR Boswell Robert MDReport Verified Date/Time: 05/25/2017 04:45:08 Reading Location: [facility] C013Y CT Body Reading Room POCT-GLUCOSE [id number] 01:52:00 Test Item Value Reference Range Interpretation Comments POC-GLUCOSE METER 126 mg/dL 70-110 H TESTED AT [facility] 6720 ([facility]) (test code = J[place]IANO [place] 1538) [address] POCT-GLUCOSE [id number] 13:07:00 Test Item Value Reference Range Interpretation Comments POC-GLUCOSE METER 118 mg/dL 70-110 H TESTED AT [facility] 6720 ([facility]) (test code = JULIANO [place] 1538) [address] BRONCHIAL CULTURE + GRAM [id number] 11:35:00 Test Item Value Reference Range Interpretation [...] <1+ gram (BEAKER) (test code = positive 936443) cocci in pairs GRAM STAIN RESULT 1+ gram (BEAKER) (test code = variable rods 635749) 1+ Normal respiratory todd presentRAD, CHEST, 1 VIEW, NON [id number] 06:50:00Reason for exam:->pl effusionShould this be performed at the bedside?->YesFINAL REPORT RAD, CHEST, 1 VIEW, NON DEPT INDICATION: pl effusion COMPARISON:Prior day's exam FINDINGS: Portable frontal view of the chest. IMPRESSION: Support Lines: Stable.Lungs and pleura: Unchanged airspace and pleural opacities. No pneumothorax.Heart and mediastinum: Stable contours. Stable surgical changes.Additional findings: None. Signed: JR Boswell Robert MDReport Verified Date/Time: 05/24/2017 06:50:08 Reading Location: [address] Body Reading Room BASIC METABOLIC [id number] 04:19:00 Test Item Value Reference Range Interpretation [...] NOT APPLICABLE FOR DIALYSIS PATIEN TS. CALCIUM, [id number] 04:16:00 Test Item Value Reference Range Interpretation Comments CALCIUM IONIZED (BEAKER) (test 1.06 mmol/L 1.12-1.27 L code = 698) PH, BLOOD (BEAKER) (test code = 7.40 1810) [id number] 04:11:00 Test Item Value Reference Range Interpretation Comments PHOSPHORUS (BEAKER) (test code = 6.0 mg/dL 2.3-4.7 H 604) [id number] 04:11:00 Test Item Value Reference Range Interpretation Comments MAGNESIUM (BEAKER) (test code = 2.4 mg/dL 1.6-2.6 627) CBC W/PLT COUNT & AUTO [id number] 03:50:00 Test Item Value Reference Range Interpretation [...] 417) IMMATURE GRANULOCYTES-RELATIVE 0 % 0-1 PERCENT ([facility]) (test code = 2801) POCT-GLUCOSE [id number] 20:45:00 Test Item Value Reference Range Interpretation Comments POC-GLUCOSE METER 143 mg/dL 70-110 H TESTED AT [place] [address] ([facility]) (test code = [facility] 1538) [address] POCT-GLUCOSE [id number] 20:45:00 Test Item Value Reference Range Interpretation Comments POC-GLUCOSE METER 145 mg/dL 70-110 H TESTED AT [place] [address] ([facility]) (test code = [facility] 1538) [address] [id number] 13:37:00 Test Item Value Reference Range Interpretation Comments PREALBUMIN (BEAKER) 10 mg/dL 14-45 L Specimen slightly (test code = 586) hemolyzed OXYGEN SATURATION, [id number] 12:31:00 Test Item Value Reference Range Interpretation Comments O2 SATURATION (MEASURED) ([facility]) 94.5 % (test code = 1455) [id number] 11:02:00 Test Item Value Reference Range Interpretation Comments PREALBUMIN (BEAKER) (test code = 10 mg/dL 14-45 L 586) RAD, CHEST, 1 VIEW, NON [id number] 05:14:00while patient is intubated or has chest [...] Bettencourt Verified Date/Time: 05/23/2017 05:14:04 Reading Location: [facility] B1 C013Y CT Body Reading Room BASIC METABOLIC [id number] 03:48:00 Test Item Value Reference Range Interpretation [...] S NOT APPLICABLE FOR DIALYSIS PATIEN TS. [id number] 03:46:00 Test Item Value Reference Range Interpretation Comments MAGNESIUM (BEAKER) 2.4 mg/dL 1.6-2.6 Specimen slightly (test code = 627) hemolyzed [id number] 03:46:00 Test Item Value Reference Range Interpretation Comments PHOSPHORUS (BEAKER) 6.5 mg/dL 2.3-4.7 H Specimen slightly (test code = 604) hemolyzed CBC W/PLT COUNT & AUTO [id number] 03:26:00 Test Item Value Reference Range Interpretation [...] (BEAKER) (test code = 2801) BLOOD GAS, [id number] 03:18:00 Test Item Value Reference Range Interpretation [...] (test code = 1819) 36.0 % CALCIUM, [id number] 16:32:00 Test Item Value Reference Range Interpretation Comments CALCIUM IONIZED (BEAKER) (test 1.11 mmol/L 1.12-1.27 L code = 698) PH, BLOOD (BEAKER) (test code = 7.39 1810) BASIC METABOLIC [id number] 15:43:00 Test Item Value Reference Range Interpretation [...] NOT APPLICABLE FOR DIALYSIS PATIEN TS. POCT-GLUCOSE [id number] 12:53:00 Test Item Value Reference Range Interpretation Comments POC-GLUCOSE METER 118 mg/dL 70-110 H TESTED AT [facility] 6720 (BEAKER) (test code = JULIANO Osborne [place] 1538) [address] BLOOD GAS, [id number] 10:42:00 Test Item Value Reference Range Interpretation [...] (test code = 1819) 40.0 % POCT-GLUCOSE [id number] 06:46:00 Test Item Value Reference Range Interpretation Comments POC-GLUCOSE METER 106 mg/dL 70-110 TESTED AT [place] [id number] ([facility]) (test code = JULIANO Osborne [facility] 1538) [address] RAD, CHEST, 1 VIEW, NON [id number] 05:05:00while patient is intubated or has chest [...] Date/Time: 05/22/2017 05:05:00 Reading Location: [facility] C0[facility] CT Body ReadingRoom BASIC METABOLIC [id number] 05:00:00 Test Item Value Reference Range Interpretation [...] S NOT APPLICABLE FOR DIALYSIS PATIEN TS. [id number] 04:41:00 Test Item Value Reference Range Interpretation Comments PHOSPHORUS (BEAKER) (test code = 6.4 mg/dL 2.3-4.7 H 604) [id number] 04:41:00 Test Item Value Reference Range Interpretation Comments MAGNESIUM (BEAKER) (test code = 2.6 mg/dL 1.6-2.6 627) CALCIUM, [id number] 04:26:00 Test Item Value Reference Range Interpretation Comments CALCIUM IONIZED (BEAKER) (test 1.09 mmol/L 1.12-1.27 L code = 698) PH, BLOOD (BEAKER) (test code = 7.40 1810) OXYGEN SATURATION, [id number] 04:25:00 Test Item Value Reference Range Interpretation Comments O2 SATURATION (MEASURED) (BEAKER) 77.0 % (test code = 1455) CBC W/PLT COUNT & AUTO [id number] 04:17:00 Test Item Value Reference Range Interpretation [...] code = 2801) LACTIC ACID, ARTERIAL, WHOLE [id number] 00:07:00 Test Item Value Reference Range Interpretation Comments LACTATE BLOOD 1.0 mmol/L 0.5-2.2 Specimen sligh tly ARTERIAL (2) (BEAKER) jaleel ellington (test code = 2874) Effective 08/02/2015: Units/Reference Range ChangeNew: 0.5-2.2 mmol/L Previous: 5-20 mg/dLPOCT-GLUCOSE [id number] 23:47:00 Test Item Value Reference Range Interpretation Comments POC-GLUCOSE METER 180 mg/dL 70-110 H TESTED AT [facility] 6720 (BEAKER) (test code = [place]IANO [place] 1538) [address] BLOOD GAS, [id number] 23:46:00 Test Item Value Reference Range Interpretation [...] code = 1819) 100.0 % SODIUM NA-STAT [id number] 23:46:00 Test Item Value Reference Range Interpretation Comments SODIUM (BEAKER) (test code = 381) 134 meq/L 135-148 L GLUCOSE-STAT [id number] 23:46:00 Test Item Value Reference Range Interpretation Comments GLUCOSE RANDOM (BEAKER) (test code 119 mg/dL 70-110 H = 652) HGB/HCT (H&H) - STAT [id number] 23:46:00 Test Item Value Reference Range Interpretation Comments HEMOGLOBIN (BEAKER) (test code = 8.8 g/dL 12.0-15.0 L 410) HEMATOCRIT (BEAKER) (test code = 26.0 % 36.0-45.0 L 411) OXYGEN SATURATION, [id number] 23:45:00 Test Item Value Reference Range Interpretation Comments O2 SATURATION (MEASURED) ([facility]) 68.1 % (test code = 1455) POTASSIUM-STAT [id number] 23:45:00 Test Item Value Reference Range Interpretation Comments POTASSIUM ([facility]) (test code = 5.5 meq/L 3.6-5.5 379) POCT-GLUCOSE [id number] 20:58:00 Test Item Value Reference Range Interpretation Comments POC-GLUCOSE METER 133 mg/dL 70-110 H TESTED AT [place] [address] ([facility]) (test code = JULIANO Osborne [place] 1538) [address] POCT-GLUCOSE [id number] 17:58:00 Test Item Value Reference Range Interpretation Comments POC-GLUCOSE METER 210 mg/dL 70-110 H TESTED AT [place] [address] ([facility]) (test code = [place]ULIANO Mipp[place] 1538) [address] POCT-GLUCOSE [id number] 17:58:00 Test Item Value Reference Range Interpretation Comments POC-GLUCOSE METER 211 mg/dL 70-110 H TESTED AT [place] [address] ([facility]) (test code = MATTHIAS[place]esRx [place] 1538) [address] POCT-GLUCOSE [id number] 17:58:00 Test Item Value Reference Range Interpretation Comments POC-GLUCOSE METER 232 mg/dL 70-110 H TESTED AT [place] [address] ([facility]) (test code = JULIANO [employer] [place] 1538) [address] POCT-GLUCOSE [id number] 17:58:00 Test Item Value Reference Range Interpretation Comments POC-GLUCOSE METER 262 mg/dL 70-110 H TESTED AT [place] [address] ([facility]) (test code = [employer] [facility] 1538) [address] BLOOD GAS, [id number] 17:01:00 Test Item Value Reference Range Interpretation Comments PH ARTERIAL ([facility]) (test code = 7.38 7.35-7.45 383) PCO2 ARTERIAL (AKER) (test code 39 mmHg 35-45 = 384) PO2 ARTERIAL (AKER) (test code 75 mmHg 80-90 L = 385) O2 SATURATION ARTERIAL ([facility]) 94.9 % 96.0-97.0 L (test code = 386) HCO3 ARTERIAL ([facility]) (test code 23 mmol/L 21-29 = 388) BASE EXCESS ARTERIAL (BEAKER) -2.5 mmol/L -2.0-3.0 L (test code = 387) PATIENT TEMPERATURE (BEAKER) 36.8 C (test code = 1818) FIO2 (BEAKER) (test code = 1819) 60.0 % POTASSIUM-STAT [id number] 17:00:00 Test Item Value Reference Range Interpretation Comments POTASSIUM (BEAKER) (test code = 4.8 meq/L 3.6-5.5 379) POCT-GLUCOSE [id number] 15:52:00 Test Item Value Reference Range Interpretation Comments POC-GLUCOSE METER 267 mg/dL 70-110 H TESTED AT [facility] 6720 (BEAKER) (test code = [place]IAN[place] 1538) [address] POCT-GLUCOSE [id number] 14:42:00 Test Item Value Reference Range Interpretation Comments POC-GLUCOSE METER 231 mg/dL 70-110 H TESTED AT [facility] 6720 (BEAKER) (test code = JULIANO Osborne [facility] 1538) [address] BODY FLUID CELL COUNT WITH [id number] 14:41:00 Test Item Value Reference Range Interpretation [...] Tube (test code = 2873) BASIC METABOLIC [id number] 14:11:00 Test Item Value Reference Range Interpretation [...] S NOT APPLICABLE FOR DIALYSIS PATIEN TS. [id number] 14:08:00 Test Item Value Reference Range Interpretation Comments PHOSPHORUS (BEAKER) (test code = 7.2 mg/dL 2.3-4.7 H 604) [id number] 14:08:00 Test Item Value Reference Range Interpretation Comments MAGNESIUM (BEAKER) (test code = 2.6 mg/dL 1.6-2.6 627) POCT-GLUCOSE [id number] 12:49:00 Test Item Value Reference Range Interpretation Comments POC-GLUCOSE METER 224 mg/dL 70-110 H TESTED AT [facility] 6720 ([facility]) (test code = JULIANO Osborne [facility] 1538) [address] POCT-GLUCOSE [id number] 12:49:00 Test Item Value Reference Range Interpretation Comments POC-GLUCOSE METER 248 mg/dL 70-110 H TESTED AT [facility] 6720 ([facility]) (test code = [facility] [employer] [facility] 1538) [address] RAD, CHEST, 1 VIEW, NON [id number] 12:32:00Reason for exam:->re-intubationShould this be performed at [...] Date/Time: 05/21/2017 12:32:08 Reading Location: [facility] Radiology Reading Room POTASSIUM-STAT [id number] 12:28:00 Test Item Value Reference Range Interpretation Comments POTASSIUM (BEAKER) (test code = 5.5 meq/L 3.6-5.5 379) BLOOD GAS, [id number] 12:28:00 Test Item Value Reference Range Interpretation [...] code = 1819) 100.0 % BLOOD GAS, [id number] 10:53:00 Test Item Value Reference Range Interpretation [...] 36.0 % RAD, CHEST, 1 VIEW, NON [id number] 08:46:00while patient is intubated or has chest [...] apical pneumothorax is suspected. Signed: Mona White [facility] Verified Date/Time: 05/21/2017 08:46:27 Reading Location: [facility] Radiology Reading Room BLOOD GAS, [id number] 05:41:00 Test Item Value Reference Range Interpretation [...] (BEAKER) (test code = 1819) 40 CALCIUM, [id number] 04:35:00 Test Item Value Reference Range Interpretation Comments CALCIUM IONIZED (BEAKER) (test 1.13 mmol/L 1.12-1.27 code = 698) PH, BLOOD (BEAKER) (test code = 7.32 1810) BLOOD GAS, [id number] 04:28:00 Test Item Value Reference Range Interpretation [...] (BEAKER) (test code = 1819) 40.0 % [id number] 04:20:00 Test Item Value Reference Range Interpretation Comments PHOSPHORUS (BEAKER) (test code = 6.2 mg/dL 2.3-4.7 H 604) [id number] 04:20:00 Test Item Value Reference Range Interpretation Comments MAGNESIUM (BEAKER) (test code = 2.4 mg/dL 1.6-2.6 627) HEPATIC FUNCTION [id number] 04:20:00 Test Item Value Reference Range Interpretation [...] = 11 U/L 6-55 347) BASIC METABOLIC [id number] 04:20:00 Test Item Value Reference Range Interpretation [...] APPLICABLE FOR DIALYSIS PATIEN TS. OXYGEN SATURATION, [id number] 04:18:00 Test Item Value Reference Range Interpretation Comments O2 SATURATION (MEASURED) (BEAKER) 68.0 % (test code = 1455) LACTIC ACID, ARTERIAL, WHOLE [id number] 04:12:00 Test Item Value Reference Range Interpretation Comments LACTATE BLOOD ARTERIAL (2) 1.0 mmol/L 0.5-2.2 (BEAKER) (test code = 2874) Effective 08/02/2015: Units/Reference Range ChangeNew: 0.5-2.2 mmol/L Previous: 5-20 mg/dLCBC W/PLT COUNT & AUTO [id number] 04:00:00 Test Item Value Reference Range Interpretation [...] (BEAKER) (test code = 2801) BLOOD GAS, [id number] 00:06:00 Test Item Value Reference Range Interpretation [...] (BEAKER) (test code = 1819) 40.0 % [id number] 18:55:00 Test Item Value Reference Range Interpretation Comments PHOSPHORUS (BEAKER) (test code = 4.8 mg/dL 2.3-4.7 H 604) [id number] 18:55:00 Test Item Value Reference Range Interpretation Comments MAGNESIUM (BEAKER) (test code = 2.3 mg/dL 1.6-2.6 627) BASIC METABOLIC [id number] 18:55:00 Test Item Value Reference Range Interpretation [...] DIALYSIS PATIEN TS. LACTIC ACID, ARTERIAL, WHOLE [id number] 18:53:00 Test Item Value Reference Range Interpretation Comments LACTATE BLOOD 0.9 mmol/L 0.5-2.2 Specimen sligh tly ARTERIAL (2) (BEAKER) hemoly zed (test code = 2874) Effective 08/02/2015: Units/Reference Range ChangeNew: 0.5-2.2 mmol/L Previous: 5-20 mg/dLRAD, CHEST, 1 VIEW, NON [id number] 18:44:00Reason for exam:- >postop cardiacShould this be [...] Verified Date/Time: 05/20/2017 18:44:30 Reading Location: [facility] [id number] Consult Reading Room Electronically signed by: MIGUEL BHAKTA M.D. on05/20/2017 06:44 PMCBC W/PLT COUNT & AUTO [id number] 18:38:00 Test Item Value Reference Range Interpretation [...] (BEAKER) (test code = 2801) OXYGEN SATURATION, [id number] 18:36:00 Test Item Value Reference Range Interpretation Comments O2 SATURATION (MEASURED) (BEAKER) 72.5 % (test code = 1455) From distal port of IJ central venous catheterSODIUM NA-STAT [id number] 18:30:00 Test Item Value Reference Range Interpretation Comments SODIUM (BEAKER) (test code = 381) 132 meq/L 135-148 L HGB/HCT (H&H) - STAT [id number] 18:30:00 Test Item Value Reference Range Interpretation Comments HEMOGLOBIN (BEAKER) (test code = 9.4 g/dL 12.0-15.0 L 410) HEMATOCRIT (BEAKER) (test code = 28.0 % 36.0-45.0 L 411) GLUCOSE-STAT [id number] 18:30:00 Test Item Value Reference Range Interpretation Comments GLUCOSE RANDOM (BEAKER) (test code 159 mg/dL 70-110 H = 652) BLOOD GAS, [id number] 18:30:00 Test Item Value Reference Range Interpretation [...] (test code = 1819) 60.0 % CALCIUM, [id number] 18:30:00 Test Item Value Reference Range Interpretation Comments CALCIUM IONIZED (BEAKER) (test 0.94 mmol/L 1.12-1.27 L code = 698) PH, BLOOD (BEAKER) (test code = 7.34 1810) POTASSIUM-STAT [id number] 18:28:00 Test Item Value Reference Range Interpretation [...] (test code = 1412) [facility] PLT. AGGREGATION ([facility]) 62.8 MM 55.0-65.0 (test code = 1413) TGH FIBRINOLYSIS ([facility]) (test 0.0 % 0.0-5.0 code = 1414) [id number] 17:53:00 Test Item Value Reference Range Interpretation Comments ACTIVATED CLOTTING TIME 103 sec TEST ED AT [place] [address] ([facility]) (test code = [place] [address]) [address] [id number] 17:53:00 Test Item Value Reference Range Interpretation Comments ACTIVATED CLOTTING TIME 466 sec TEST ED AT [place] [address] ([facility]) (test code = [place] 441) [address] [id number] 17:53:00 Test Item Value Reference Range Interpretation Comments ACTIVATED CLOTTING TIME 543 sec TEST ED AT [place] [address] ([facility]) (test code = JULIANO Osborne [place] [address]) [address] [id number] 17:53:00 Test Item Value Reference Range Interpretation Comments ACTIVATED CLOTTING TIME 549 sec TEST ED AT [place] [address] ([facility]) (test code = [place] 441) [address] [id number] 17:53:00 Test Item Value Reference Range Interpretation Comments ACTIVATED CLOTTING TIME 632 sec TEST ED AT [place] [address] ([facility]) (test code = [place] [address]) [address] [id number] 17:53:00 Test Item Value Reference Range Interpretation Comments ACTIVATED CLOTTING TIME 494 sec TEST ED AT [place] [address] ([facility]) (test code = [place] [address]) [address] [id number] 17:53:00 Test Item Value Reference Range Interpretation Comments ACTIVATED CLOTTING TIME 587 sec TEST ED AT [place] [address] ([facility]) (test code = JULIANO Osborne [place] [address]) [address] [id number] 17:53:00 Test Item Value Reference Range Interpretation Comments ACTIVATED CLOTTING TIME 626 sec TEST ED AT [place] [address] ([facility]) (test code = MATTHIASAMANDA Dylon [place] [address]) [address] [id number] 17:52:00 Test Item Value Reference Range Interpretation Comments ACTIVATED CLOTTING TIME 808 sec TEST ED AT [facility] 6720 (BEAKER) (test code = [place] [address]) [address] [id number] 16:54:00 Test Item Value Reference Range Interpretation Comments PARTIAL THROMBOPLASTIN TIME 40.2 seconds 22.5-36.0 H (BEAKER) (test code = 760) [id number] 16:53:00 Test Item Value Reference Range Interpretation Comments FIBRINOGEN LEVEL (BEAKER) (test 306 mg/dl 225-434 code = 658) PROTHROMBIN [id number] 16:50:00 Test Item Value Reference Range Interpretation Comments PROTIME (BEAKER) (test code = 19.6 seconds 11.7-14.7 H 759) INR (BEAKER) (test code = 370) 1.7 <=5.9 RECOMMENDED COUMADIN/WARFARIN INR THERAPY RANGESSTANDARD DOSE: 2.0 - 3.0 Includes: PROPHYLAXIS forvenous thrombosis, systemic embolization; TREATMENT for venous thrombosis and/or pulmonary embolus.HIGH RISK: Target INR is 2.5-3.5 for patients with mechanical heart valves.PLATELET [id number] 16:45:00 Test Item Value Reference Range Interpretation Comments PLATELET COUNT (BEAKER) (test 136 K/CU MM 150-450 L code = 756) POTASSIUM-STAT [id number] 16:15:00 Test Item Value Reference Range Interpretation Comments POTASSIUM (BEAKER) (test code = 4.9 meq/L 3.6-5.5 379) BLOOD GAS, [id number] 16:15:00 Test Item Value Reference Range Interpretation [...] code = 1819) 100.0 % SODIUM NA-STAT [id number] 16:15:00 Test Item Value Reference Range Interpretation Comments SODIUM (BEAKER) (test code = 381) 131 meq/L 135-148 L GLUCOSE-STAT [id number] 16:15:00 Test Item Value Reference Range Interpretation Comments GLUCOSE RANDOM (BEAKER) (test code 198 mg/dL 70-110 H = 652) HGB/HCT (H&H) - STAT [id number] 16:15:00 Test Item Value Reference Range Interpretation Comments HEMOGLOBIN (BEAKER) (test code = 7.5 g/dL 12.0-15.0 L 410) HEMATOCRIT (BEAKER) (test code = 22.0 % 36.0-45.0 L 411) CALCIUM, [id number] 16:14:00 Test Item Value Reference Range Interpretation Comments CALCIUM IONIZED (BEAKER) (test 0.91 mmol/L 1.12-1.27 L code = 698) PH, BLOOD (BEAKER) (test code = 7.39 1810) BLOOD GAS, [id number] 15:39:00 Test Item Value Reference Range Interpretation [...] code = 1819) 70.0 % SODIUM NA-STAT [id number] 15:39:00 Test Item Value Reference Range Interpretation Comments SODIUM (BEAKER) (test code = 381) 131 meq/L 135-148 L GLUCOSE-STAT [id number] 15:39:00 Test Item Value Reference Range Interpretation Comments GLUCOSE RANDOM (BEAKER) (test code 186 mg/dL 70-110 H = 652) HGB/HCT (H&H) - STAT [id number] 15:39:00 Test Item Value Reference Range Interpretation Comments HEMOGLOBIN (BEAKER) (test code = 7.5 g/dL 12.0-15.0 L 410) HEMATOCRIT (BEAKER) (test code = 22.0 % 36.0-45.0 L 411) POTASSIUM-STAT [id number] 15:38:00 Test Item Value Reference Range Interpretation Comments POTASSIUM (BEAKER) (test code = 5.3 meq/L 3.6-5.5 379) BLOOD GAS, [id number] 15:24:00 Test Item Value Reference Range Interpretation [...] code = 1819) 70.0 % SODIUM NA-STAT [id number] 15:24:00 Test Item Value Reference Range Interpretation Comments SODIUM (BEAKER) (test code = 381) 130 meq/L 135-148 L GLUCOSE-STAT [id number] 15:24:00 Test Item Value Reference Range Interpretation Comments GLUCOSE RANDOM (BEAKER) (test code 189 mg/dL 70-110 H = 652) HGB/HCT (H&H) - STAT [id number] 15:24:00 Test Item Value Reference Range Interpretation Comments HEMOGLOBIN (BEAKER) (test code = 6.7 g/dL 12.0-15.0 L 410) HEMATOCRIT (BEAKER) (test code = 20.0 % 36.0-45.0 L 411) POTASSIUM-STAT [id number] 15:23:00 Test Item Value Reference Range Interpretation Comments POTASSIUM (BEAKER) (test code = 5.4 meq/L 3.6-5.5 379) BLOOD GAS, [id number] 15:07:00 Test Item Value Reference Range Interpretation [...] code = 1819) 70.0 % SODIUM NA-STAT [id number] 15:07:00 Test Item Value Reference Range Interpretation Comments SODIUM (BEAKER) (test code = 381) 129 meq/L 135-148 L GLUCOSE-STAT [id number] 15:07:00 Test Item Value Reference Range Interpretation Comments GLUCOSE RANDOM (BEAKER) (test code 172 mg/dL 70-110 H = 652) HGB/HCT (H&H) - STAT [id number] 15:07:00 Test Item Value Reference Range Interpretation Comments HEMOGLOBIN (BEAKER) (test code = 7.1 g/dL 12.0-15.0 L 410) HEMATOCRIT (BEAKER) (test code = 21.0 % 36.0-45.0 L 411) POTASSIUM-STAT [id number] 15:04:00 Test Item Value Reference Range Interpretation Comments POTASSIUM (BEAKER) (test code = 5.0 meq/L 3.6-5.5 379) BLOOD GAS, [id number] 14:21:00 Test Item Value Reference Range Interpretation [...] code = 1819) 70.0 % SODIUM NA-STAT [id number] 14:21:00 Test Item Value Reference Range Interpretation Comments SODIUM (BEAKER) (test code = 381) 133 meq/L 135-148 L GLUCOSE-STAT [id number] 14:21:00 Test Item Value Reference Range Interpretation Comments GLUCOSE RANDOM (BEAKER) (test code 160 mg/dL 70-110 H = 652) HGB/HCT (H&H) - STAT [id number] 14:21:00 Test Item Value Reference Range Interpretation Comments HEMOGLOBIN (BEAKER) (test code = 7.5 g/dL 12.0-15.0 L 410) HEMATOCRIT (BEAKER) (test code = 22.0 % 36.0-45.0 L 411) POTASSIUM-STAT [id number] 14:20:00 Test Item Value Reference Range Interpretation Comments POTASSIUM (BEAKER) (test code = 4.7 meq/L 3.6-5.5 379) BLOOD GAS, [id number] 13:58:00 Test Item Value Reference Range Interpretation [...] code = 1819) 80.0 % SODIUM NA-STAT [id number] 13:58:00 Test Item Value Reference Range Interpretation Comments SODIUM (BEAKER) (test code = 381) 132 meq/L 135-148 L GLUCOSE-STAT [id number] 13:58:00 Test Item Value Reference Range Interpretation Comments GLUCOSE RANDOM (BEAKER) (test code 166 mg/dL 70-110 H = 652) HGB/HCT (H&H) - STAT [id number] 13:58:00 Test Item Value Reference Range Interpretation Comments HEMOGLOBIN (BEAKER) (test code = 7.5 g/dL 12.0-15.0 L 410) HEMATOCRIT (BEAKER) (test code = 22.0 % 36.0-45.0 L 411) POTASSIUM-STAT [id number] 13:57:00 Test Item Value Reference Range Interpretation Comments POTASSIUM (BEAKER) (test code = 4.7 meq/L 3.6-5.5 379) BLOOD GAS, [id number] 13:35:00 Test Item Value Reference Range Interpretation [...] (test code = 1819) 80.0 % GLUCOSE-STAT [id number] 13:35:00 Test Item Value Reference Range Interpretation Comments GLUCOSE RANDOM (BEAKER) (test code 130 mg/dL 70-110 H = 652) HGB/HCT (H&H) - STAT [id number] 13:35:00 Test Item Value Reference Range Interpretation Comments HEMOGLOBIN (BEAKER) (test code = 6.7 g/dL 12.0-15.0 L 410) HEMATOCRIT (BEAKER) (test code = 20.0 % 36.0-45.0 L 411) SODIUM NA-STAT [id number] 13:35:00 Test Item Value Reference Range Interpretation Comments SODIUM (BEAKER) (test code = 381) 133 meq/L 135-148 L POTASSIUM-STAT [id number] 13:34:00 Test Item Value Reference Range Interpretation Comments POTASSIUM (BEAKER) (test code = 4.2 meq/L 3.6-5.5 379) BLOOD GAS, [id number] 13:16:00 Test Item Value Reference Range Interpretation [...] code = 1819) 80.0 % SODIUM NA-STAT [id number] 13:16:00 Test Item Value Reference Range Interpretation Comments SODIUM (BEAKER) (test code = 381) 133 meq/L 135-148 L HGB/HCT (H&H) - STAT [id number] 13:16:00 Test Item Value Reference Range Interpretation Comments HEMOGLOBIN (BEAKER) (test code = 6.3 g/dL 12.0-15.0 L 410) HEMATOCRIT (BEAKER) (test code = 19.0 % 36.0-45.0 L 411) CALCIUM, [id number] 13:15:00 Test Item Value Reference Range Interpretation Comments CALCIUM IONIZED (BEAKER) (test 0.98 mmol/L 1.12-1.27 L code = 698) PH, BLOOD (BEAKER) (test code = 7.34 1810) BLOOD GAS, [id number] 13:15:00 Test Item Value Reference Range Interpretation [...] (test code = 1819) 80.0 % GLUCOSE-STAT [id number] 13:14:00 Test Item Value Reference Range Interpretation Comments GLUCOSE RANDOM (BEAKER) (test code = 92 mg/dL 70-110 652) POTASSIUM-STAT [id number] 13:14:00 Test Item Value Reference Range Interpretation Comments POTASSIUM (BEAKER) (test code = 3.9 meq/L 3.6-5.5 379) BLOOD GAS, [id number] 10:54:00 Test Item Value Reference Range Interpretation [...] 1819) 100.0 % HGB/HCT (H&H) - STAT [id number] 10:54:00 Test Item Value Reference Range Interpretation Comments HEMOGLOBIN (BEAKER) (test code = 9.3 g/dL 12.0-15.0 L 410) HEMATOCRIT (BEAKER) (test code = 27.0 % 36.0-45.0 L 411) SODIUM NA-STAT [id number] 10:54:00 Test Item Value Reference Range Interpretation Comments SODIUM (BEAKER) (test code = 381) 132 meq/L 135-148 L GLUCOSE-STAT [id number] 10:52:00 Test Item Value Reference Range Interpretation Comments GLUCOSE RANDOM (BEAKER) (test code = 94 mg/dL 70-110 652) POTASSIUM-STAT [id number] 10:52:00 Test Item Value Reference Range Interpretation Comments POTASSIUM (BEAKER) (test code = 4.0 meq/L 3.6-5.5 379) HEMOGLOBIN [id number] 09:50:00 Test Item Value Reference Range Interpretation Comments HEMOGLOBIN A1C (BEAKER) (test code = 10.6 % 4.3-6.1 H 368) PLATELET AGGREGATION: FUNCTION [id number] 08:27:00 Test Item Value Reference Range Interpretation Comments WEAK ADP 63 % 60-91 RESULT(BEAKER) (test code = 2135) PLATELET FUNCTION 60-100% indicates SCREEN INTERP (BEAKER) normal platelet (test code = 2173) function [id number] Toshia Post MD ([facility]) (test code = (electronic signature) 1196) PLATELET COUNT AGG 198 K/CU MM 150-450 (BEAKER) (test code = 2656) for patients on clopidogrel in past two weeksPOCT-GLUCOSE [id number] 08:11:00 Test Item Value Reference Range Interpretation Comments POC-GLUCOSE METER 116 mg/dL 70-110 H TESTED AT [facility] 6720 (BEAKER) (test code = [place] 1538) [id number] 07:10:00 Test Item Value Reference Range Interpretation Comments PHOSPHORUS (BEAKER) (test code = 4.5 mg/dL 2.3-4.7 604) [id number] 07:10:00 Test Item Value Reference Range Interpretation Comments MAGNESIUM (BEAKER) (test code = 2.1 mg/dL 1.6-2.6 627) BASIC METABOLIC [id number] 07:10:00 Test Item Value Reference Range Interpretation [...] = 700) CBC W/PLT COUNT & AUTO [id number] 06:46:00 Test Item Value Reference Range Interpretation [...] PERCENT (BEAKER) (test code = 2801) CALCIUM, [id number] 06:40:00 Test Item Value Reference Range Interpretation Comments CALCIUM IONIZED (BEAKER) (test 1.06 mmol/L 1.12-1.27 L code = 698) PH, BLOOD (BEAKER) (test code = 7.39 1810) POCT-GLUCOSE [id number] 23:22:00 Test Item Value Reference Range Interpretation Comments POC-GLUCOSE METER 165 mg/dL 70-110 H TESTED AT [facility] 6720 (BEAKER) (test code = JULIANO REYEZ 1538) [id number] URINE PROTEIN ELECTROPHORESIS, [id number] 18:02:00 Test Item Value Reference Range Interpretation Comments PROTEIN, URINE 305 mg/dL 0-14 H (BEAKER) (test code = 1569) ALBUMIN URINE ELP 70.9 % (BEAKER) (test code = 1018) GAMMA GLOBULIN URINE 29.1 % (BEAKER) (test code = 1015) UPEP, [id number] ([facility]) No monoclonal bands (test code = 2604) detected. [id number] Rocio Galindo MD ([facility]) (test code = (electronic signature) 2605) PROTEIN ELECTROPHORESIS, [id number] 17:57:00 Test Item Value Reference Range Interpretation [...] all globulin fractions. No monoclonal bands detected. [id number] Rocio Galindo MD ([facility]) (test code = (electronic signature) 3070) PROTEIN TOTAL SERUM, 5.5 gm/dL 6.0-8.3 L SPEP (BEAKER) (test code = 2660) POCT-GLUCOSE [id number] 17:15:00 Test Item Value Reference Range Interpretation Comments POC-GLUCOSE METER 209 mg/dL 70-110 H TESTED AT [facility] 6720 (BEAKER) (test code = [facility] 1538) [address]392 BLOOD GAS, [id number] 15:54:00 Test Item Value Reference Range Interpretation [...] 36.0 % RAD, CHEST, 1 VIEW, NON [id number] 14:07:00Reason for exam:->SOB, hypoxemiaShould this be performed [...] Cespedes Verified Date/Time: 05/19/2017 14:07:07 Reading Location:[address] Consult Reading Room POCT-GLUCOSE [id number] 11:26:00 Test Item Value Reference Range Interpretation Comments POC-GLUCOSE METER 262 mg/dL 70-110 H TESTED AT [place] [address] ([facility]) (test code = [facility] 1538) [address] POCT-GLUCOSE [id number] 07:37:00 Test Item Value Reference Range Interpretation Comments POC-GLUCOSE METER 170 mg/dL 70-110 H TESTED AT [place] [address] ([facility]) (test code = [facility] 1538) [address] CALCIUM, [id number] 06:06:00 Test Item Value Reference Range Interpretation Comments CALCIUM IONIZED (BEAKER) (test 1.05 mmol/L 1.12-1.27 L code = 698) PH, BLOOD (BEAKER) (test code = 7.41 1810) [id number] 05:38:00 Test Item Value Reference Range Interpretation Comments PHOSPHORUS (BEAKER) (test code = 3.9 mg/dL 2.3-4.7 604) [id number] 05:38:00 Test Item Value Reference Range Interpretation Comments MAGNESIUM (BEAKER) (test code = 2.2 mg/dL 1.6-2.6 627) BASIC METABOLIC [id number] 05:38:00 Test Item Value Reference Range Interpretation [...] PATIEN TS. CBC W/PLT COUNT & AUTO [id number] 05:09:00 Test Item Value Reference Range Interpretation [...] PERCENT (BEAKER) (test code = 2801) POCT-GLUCOSE [id number] 22:08:00 Test Item Value Reference Range Interpretation Comments POC-GLUCOSE METER 263 mg/dL 70-110 H TESTED AT [place] [address] ([facility]) (test code = JULIANO Osborne [facility] 1538) [address] POCT-GLUCOSE [id number] 17:20:00 Test Item Value Reference Range Interpretation Comments POC-GLUCOSE METER 233 mg/dL 70-110 H TESTED AT [place] [address] ([facility]) (test code = JULIANO Osborne [facility] 1538) [address] POCT-GLUCOSE [id number] 08:28:00 Test Item Value Reference Range Interpretation Comments POC-GLUCOSE METER 154 mg/dL 70-110 H TESTED AT [place] [address] ([facility]) (test code = [facility] Dylon [facility] 6341) [address] BASIC METABOLIC [id number] 06:41:00 Test Item Value Reference Range Interpretation [...] S NOT APPLICABLE FOR DIALYSIS PATIEN TS. [id number] 06:35:00 Test Item Value Reference Range Interpretation Comments PHOSPHORUS (BEAKER) (test code = 4.1 mg/dL 2.3-4.7 604) [id number] 06:35:00 Test Item Value Reference Range Interpretation Comments MAGNESIUM (BEAKER) (test code = 2.1 mg/dL 1.6-2.6 627) CALCIUM, [id number] 06:22:00 Test Item Value Reference Range Interpretation Comments CALCIUM IONIZED (BEAKER) (test 1.10 mmol/L 1.12-1.27 L code = 698) PH, BLOOD (BEAKER) (test code = 7.38 1810) CBC W/PLT COUNT & AUTO [id number] 06:04:00 Test Item Value Reference Range Interpretation [...] PERCENT (BEAKER) (test code = 2801) POCT-GLUCOSE [id number] 03:44:00 Test Item Value Reference Range Interpretation Comments POC-GLUCOSE METER 220 mg/dL 70-110 H TESTED AT [facility] 6720 (BEAKER) (test code = JULIANO RUTH [place] 1538) [address] POCT-GLUCOSE [id number] 18:27:00 Test Item Value Reference Range Interpretation Comments POC-GLUCOSE METER 256 mg/dL 70-110 H TESTED AT [place] [address] ([facility]) ([facility] = [facility] [place] 1538) [address] POCT-GLUCOSE [id number] 15:45:00 Test Item Value Reference Range Interpretation Comments POC-GLUCOSE METER 278 mg/dL 70-110 H TESTED AT [place] [address] ([facility]) (test code = [facility] Dylon [place] 1538) [address] POCT-GLUCOSE [id number] 13:22:00 Test Item Value Reference Range Interpretation Comments POC-GLUCOSE METER 278 mg/dL 70-110 H TESTED AT [place] [address] ([facility]) (test code = [facility] 1538) 17676 PLATELET AGGREGATION: FUNCTION [id number] 13:18:00 Test Item Value Reference Range Interpretation Comments WEAK ADP 66 % 60-91 RESULT([facility]) (test code = 2135) PLATELET FUNCTION 60-100% indicates SCREEN INTERP ([facility]) normal platelet (test code = 2173) function [id number] Rigoberto Duenas MD ([facility]) (test code = (electronic signature) 8695) PLATELET COUNT AGG 204 K/CU MM 150-450 ([facility]) (test code = 2656) POCT-GLUCOSE [id number] 08:27:00 Test Item Value Reference Range Interpretation Comments POC-GLUCOSE METER 189 mg/dL 70-110 H TESTED AT [place] [address] ([facility]) (test code = [facility] 1538) 8[address] CALCIUM, [id number] 06:12:00 Test Item Value Reference Range Interpretation Comments CALCIUM IONIZED (AKER) (test 1.07 mmol/L 1.12-1.27 L code = 698) PH, BLOOD ([facility]) (test code = 7.36 1810) [id number] 05:43:00 Test Item Value Reference Range Interpretation Comments PHOSPHORUS (BEAKER) (test code = 3.6 mg/dL 2.3-4.7 604) [id number] 05:43:00 Test Item Value Reference Range Interpretation Comments MAGNESIUM (BEAKER) (test code = 2.1 mg/dL 1.6-2.6 627) BASIC METABOLIC [id number] 05:43:00 Test Item Value Reference Range Interpretation [...] PATIEN TS. CBC W/PLT COUNT & AUTO [id number] 05:05:00 Test Item Value Reference Range Interpretation [...] PERCENT (BEAKER) (test code = 2801) POCT-GLUCOSE [id number] 21:32:00 Test Item Value Reference Range Interpretation Comments POC-GLUCOSE METER 176 mg/dL 70-110 H TESTED AT [place] [address] [facility] (test code = JULIANO Osborne [facility] 1538) [address]88 POCT-GLUCOSE [id number] 20:27:00 Test Item Value Reference Range Interpretation Comments POC-GLUCOSE METER 161 mg/dL 70-110 H TESTED AT [place] [address] [facility] (test code = JULIANO Osborne [facility] 1538) 8[address]85 POCT-GLUCOSE [id number] 18:23:00 Test Item Value Reference Range Interpretation Comments POC-GLUCOSE METER 185 mg/dL 70-110 H TESTED AT [place] [address] ([facility] (test code = JULIANO Osborne [facility] 1538) 76812 POCT-GLUCOSE [id number] 13:26:00 Test Item Value Reference Range Interpretation Comments POC-GLUCOSE METER 282 mg/dL 70-110 H TESTED AT [facility] 6720 [facility] (test code = JULIANO Osborne [facility] 1538) 45550 URINE [id number] 10:12:00 Test Item Value Reference Range Interpretation Comments CULTURE (BEAKER) (test >100,000 col/mL skin code = 1095) todd POCT-GLUCOSE [id number] 09:01:00 Test Item Value Reference Range Interpretation Comments POC-GLUCOSE METER 268 mg/dL 70-110 H TESTED AT [facility] 6720 ([facility] (test code = JULIANO Osborne [facility] 1538) [address]30 CALCIUM, [id number] 05:39:00 Test Item Value Reference Range Interpretation Comments CALCIUM IONIZED (BEAKER) (test 0.84 mmol/L 1.12-1.27 L code = 698) PH, BLOOD (BEAKER) (test code = 7.35 1810) BASIC METABOLIC [id number] 05:07:00 Test Item Value Reference Range Interpretation [...] S NOT APPLICABLE FOR DIALYSIS PATIEN TS. [id number] 05:06:00 Test Item Value Reference Range Interpretation Comments PHOSPHORUS (BEAKER) (test code = 3.2 mg/dL 2.3-4.7 604) [id number] 05:06:00 Test Item Value Reference Range Interpretation Comments MAGNESIUM (BEAKER) (test code = 2.3 mg/dL 1.6-2.6 627) CBC W/PLT COUNT & AUTO [id number] 04:42:00 Test Item Value Reference Range Interpretation [...] = 2801) RHEUMATOID FACTOR AB, REFLEX TO [id number] 01:52:00 Test Item Value Reference Range Interpretation Comments RHEUMATOID FACTOR (ROBERT) (test Negative code = 573) POCT-GLUCOSE [id number] 21:57:00 Test Item Value Reference Range Interpretation Comments POC-GLUCOSE METER 105 mg/dL 70-110 TESTED AT [facility] 6720 (ROBERT) (test code = JULIANO Osborne [facility] 1538) 35982 POCT-GLUCOSE [id number] 18:11:00 Test Item Value Reference Range Interpretation Comments POC-GLUCOSE METER 312 mg/dL 70-110 H Notified Dylon Austin MD/TESTED (ROBERT) (test code = AT [facility] 6720 [facility] 1538) [facility] 7703 0 PET, CARDIAC PERFUSION MULTIPLE STUDIES, REST AND [id number] 16:28:00 Reason for exam:->pvcs, known cadFINAL REPORT PROCEDURE: Rest/Stress MYOCARDIAL PERFUSION PET with regadenoson\\XA9\\ CPT CODE: 19265 INDICATION: Defined extent and severity of known [...] is 23%. LVEF at stress is 36%. Customer Expert CT images revealed a right pleural effusion [...] pleural and pericardial effusions. 7. No previous [facility] study for comparison. NONINVASIVE RISK STRATIFICATION: The above findings are considered high risk (>3% annual mortality rate) based on the following criteria: - Severe resting left ventricular dysfunction (LVEF 35%)- Stress-induced large perfusion defect (particularly if anterior)(JACC. 2012;59(9):857-81.) Signed: Natan Whaley Verified Date/Time: 05/15/2017 16:28:12 Reading Location: [address] ReadingRoom RAD, CHEST, 1 VIEW, NON [id number] 15:56:00Reason for exam:->SOBShould this be performed at the bedside?->YesFINAL REPORT Comparison: 05/14/2017 TECHNIQUE: Single view of the chest FINDINGS: There is a small right pleural effusion with nonspecific airspace disease. This is unchanged. Left lung is grossly clear. Cardiac silhouette is enlarged. IMPRESSION: 1. No acute cardiopulmonary disease. Signed: Sixto Monk MDReport Verified Date/Time: 05/15/2017 15:56:39 [facility] POCT-GLUCOSE [id number] 12:54:00 Test Item Value Reference Range Interpretation Comments POC-GLUCOSE METER 308 mg/dL 70-110 H Notified R Sonya PIERRE/TESTED (SERVANDODANIELA) (test code = AT [facility] 6720 [facility] 1538) [facility] 7703 0 U/S, RENAL WITH [id number] 11:04:00Reason for exam:->tracy, htnShould this be performed [...] Hobbs Verified Date/Time: 05/15/2017 11:04:01 Reading Location: [facility] [id number] Ultrasound Reading Room ANA TITER AND [id number] 10:57:00 Test Item Value Reference Range Interpretation Comments ROGER TITER (BEAKER) (test code = :160 1541) ROGER PATTERN (BEAKER) (test code = Speckled 1781) ANTI-NUCLEAR ANTIBODY (ROGER)2017-05-15 10:56:00 Test Item Value Reference Range Interpretation Comments ANTI-NUCLEAR ANTIBODY (ROGER) (BEAKER) Positive Negative A (test code = 418) CALCIUM, [id number] 06:00:00 Test Item Value Reference Range Interpretation Comments CALCIUM IONIZED (BEAKER) (test 1.07 mmol/L 1.12-1.27 L code = 698) PH, BLOOD (BEAKER) (test code = 7.28 1810) HEPATITIS PANEL, [id number] 05:01:00 Test Item Value Reference Range Interpretation Comments HEPATITIS A IGM ANTIBODY (BEAKER) Nonreactive Nonreactive (test code = 498) HEPATITIS B CORE IGM ANTIBODY Nonreactive Nonreactive (BEAKER) (test code = 645) HEPATITIS C ANTIBODY (BEAKER) Nonreactive Nonreactive (test code = 367) HEPATITIS B SURFACE ANTIGEN (2) Nonreactive Nonreactive (BEAKER) (test code = 2585) BASIC METABOLIC [id number] 04:48:00 Test Item Value Reference Range Interpretation [...] NOT APPLICABLE FOR DIALYSIS PATIEN TS. URIC [id number] 04:41:00 Test Item Value Reference Range Interpretation Comments URIC ACID (BEAKER) (test code = 10.3 mg/dL 2.6-7.2 H 773) [id number] 04:41:00 Test Item Value Reference Range Interpretation Comments MAGNESIUM (BEAKER) (test code = 2.0 mg/dL 1.6-2.6 627) [id number] 04:41:00 Test Item Value Reference Range Interpretation Comments PHOSPHORUS (BEAKER) (test code = 4.2 mg/dL 2.3-4.7 604) COMPLEMENT COMPONENT [id number] 04:38:00 Test Item Value Reference Range Interpretation Comments C4 COMPLEMENT (BEAKER) (test code = 28 mg/dL 15-57 394) COMPLEMENT COMPONENT [id number] 04:38:00 Test Item Value Reference Range Interpretation Comments C3 COMPLEMENT (BEAKER) (test code = 103 mg/dL 82-193 393) CBC W/PLT COUNT & AUTO [id number] 04:22:00 Test Item Value Reference Range Interpretation [...] % 0-1 PERCENT (BEAKER) (test code = 6551) POCT-GLUCOSE [id number] 21:46:00 Test Item Value Reference Range Interpretation Comments POC-GLUCOSE METER 173 mg/dL 70-110 H TESTED AT [facility] 6720 (BEAKER) (test code = JULIANO RUTH [place] 1538) [address] POCT-GLUCOSE [id number] 21:46:00 Test Item Value Reference Range Interpretation Comments POC-GLUCOSE METER 154 mg/dL 70-110 H TESTED AT [facility] 67 ([facility]) (test code = JULIANO Osborne [place] 1538) [address] POCT-GLUCOSE [id number] 18:17:00 Test Item Value Reference Range Interpretation Comments POC-GLUCOSE METER 175 mg/dL 70-110 H TESTED AT [place] [address] ([facility]) (test code = JULIANO Osborne [facility] 1538) [address] RAD, CHEST, 1 VIEW, NON [id number] 14:56:00Reason for exam:->SOBShould this be performed at the bedside?->YesFINAL REPORT INDICATION: SOB COMPARISON: May 13, 2017 TECHNIQUE: Chest radiograph, single view, portable technique. FINDINGS / IMPRESSION: Enlarged heart shadow, small rightpleural effusion, and pulmonary venous congestion, again demonstrated. No pneumothorax or consolidation. Osseous structures unremarkable. Signed: Thania Dwyer MDReport Verified Date/Time: 05/14/2017 14:56:58 Reading Location: [facility] Mammo Reading Room POCT-GLUCOSE [id number] 12:18:00 Test Item Value Reference Range Interpretation Comments POC-GLUCOSE METER 313 mg/dL 70-110 H TESTED AT [place] [address] ([facility]) (test code = JULIANO Osborne [facility] 1538) [address]153 HIV-1 ANTIGEN WITH HIV-1/2 [id number] 12:07:00 Test Item Value Reference Range Interpretation Comments HIV-1 ANTIGEN WITH HIV 1\\T\\2 Nonreactive Nonreactive ANTIBODY (2) ([facility]) (test code = 2586) CALCIUM, [id number] 06:37:00 Test Item Value Reference Range Interpretation Comments CALCIUM IONIZED ([facility]) (test 1.08 mmol/L 1.12-1.27 L code = 698) PH, BLOOD ([facility]) (test code = 7.25 1810) BASIC METABOLIC [id number] 06:26:00 Test Item Value Reference Range Interpretation [...] pg/mL 0-100 H (test code = 700) [id number] 06:25:00 Test Item Value Reference Range Interpretation Comments PHOSPHORUS (BEAKER) (test code = 5.7 mg/dL 2.3-4.7 H 604) [id number] 06:25:00 Test Item Value Reference Range Interpretation Comments MAGNESIUM (BEAKER) (test code = 1.5 mg/dL 1.6-2.6 L 627) CBC W/PLT COUNT & AUTO [id number] 06:07:00 Test Item Value Reference Range Interpretation [...] PERCENT (BEAKER) (test code = 2801) POCT-GLUCOSE [id number] 22:38:00 Test Item Value Reference Range Interpretation Comments POC-GLUCOSE METER 262 mg/dL 70-110 H TESTED AT [facility] 6720 (BEAKER) (test code = JULIANO REYEZ 1538) [address] PROTEIN, RANDOM [id number] 22:18:00 Test Item Value Reference Range Interpretation Comments PROTEIN, URINE (BEAKER) (test code 641 mg/dL 0-14 H = 1569) CREATININE, RANDOM [id number] 22:07:00 Test Item Value Reference Range Interpretation Comments CREATININE URINE (BEAKER) (test 124.9 mg/dL code = 375) Reference Range: No NormalsURINALYSIS W/ [id number] 22:03:00 Test Item Value Reference Range Interpretation [...] 1585) SOURCE(BEAKER) (test code = Urine, Voided 7722) [id number] 19:49:00 Test Item Value Reference Range Interpretation Comments SODIUM (BEAKER) (test 136 meq/L 136-145 code = 381) POTASSIUM (BEAKER) 5.1 meq/L 3.5-5.1 Specimen slightly (test code = 379) hemolyzed CHLORIDE (BEAKER) 104 meq/L 98-107 (test code = 382) CO2 (BEAKER) (test 25 meq/L 22-29 code = 355) Call if K > 5POCT-GLUCOSE [id number] 11:37:00 Test Item Value Reference Range Interpretation Comments POC-GLUCOSE METER 293 mg/dL 70-110 H TESTED AT [place] [address] ([facility]) (test code = JULIANO Osborne [facility] 1538) [address] RAD, CHEST, 1 VIEW, NON [id number] 10:22:00Reason for exam:->SOBShould this be performed at the bedside?->YesFINAL REPORT Chest one view Discussion: There is cardiomegaly and interstitial congestion. A small right-sided effusion is noted. No pneumothorax. IMPRESSIONS: Suspected CHF. Signed: Jeannette Nava Verified Date/Time: 05/13/2017 10:22:34 Reading Location: [facility] Radiology Reading Room POCT-GLUCOSE METER 2017-05-13 08:34:00 Test Item Value Reference Range Interpretation Comments POC-GLUCOSE METER 178 mg/dL 70-110 H TESTED AT [place] [address] ([facility]) (test code = JULIANO Osborne [facility] 1538) [address] POCT-GLUCOSE [id number] 06:53:00 Test Item Value Reference Range Interpretation Comments POC-GLUCOSE METER 167 mg/dL 70-110 H TESTED AT [place] [address] ([facility]) (test code = JULIANO Osborne [facility] 1538) [address] [id number] 04:48:00 Test Item Value Reference Range Interpretation Comments BLOOD UREA NITROGEN (BEAKER) (test 36 mg/dL 7-21 H code = 354) [id number] 04:48:00 Test Item Value Reference Range Interpretation Comments SODIUM (BEAKER) (test code = 381) 139 meq/L 136-145 POTASSIUM (BEAKER) (test code = 5.2 meq/L 3.5-5.1 H 379) CHLORIDE (BEAKER) (test code = 382) 109 meq/L 98-107 H CO2 (BEAKER) (test code = 355) 23 meq/L 22-29 [id number] 04:48:00 Test Item Value Reference Range Interpretation [...] WBC 0-0 (BEAKER) (test code = 413) [id number] 23:29:00 Test Item Value Reference Range Interpretation Comments ACTIVATED CLOTTING TIME 136 sec TEST ED AT [place] [address] ([facility]) (test code = JULIANO Osborne [place] [address]) [address] [id number] 20:13:00 Test Item Value Reference Range Interpretation Comments ACTIVATED CLOTTING TIME 175 sec TEST ED AT [place] [address] ([facility]) (test code = JULIANO Osborne [place] [address]) [address] [id number] 18:36:00 Test Item Value Reference Range Interpretation Comments ACTIVATED CLOTTING TIME 202 sec TEST ED AT [place] [address] ([facility]) (test code = JULIANO [facility]UTH [facility]) [address] [id number] 18:03:00 Test Item Value Reference Range Interpretation Comments ACTIVATED CLOTTING TIME 208 sec TEST ED AT [facility] 6720 (BEAKER) (test code = JULIANO RUTH [place] 441) [address] BASIC METABOLIC [id number] 11:57:00 Test Item Value Reference Range Interpretation [...] NOT APPLICABLE FOR DIALYSIS PATIEN TS. PROTHROMBIN [id number] 11:15:00 Test Item Value Reference Range Interpretation [...] if on CoumadinCBC W/PLT COUNT & AUTO [id number] 11:01:00 Test Item Value Reference Range Interpretation [...] PERCENT (BEAKER) (test code = 2801) POCT-GLUCOSE [id number] 12:35:00 Test Item Value Reference Range Interpretation Comments POC-GLUCOSE METER 249 mg/dL 70-110 H TESTED AT [facility] 6720 (BEAKER) (test code = JULIANO Osborne [place] 1538) [address] POCT-GLUCOSE [id number] 09:10:00 Test Item Value Reference Range Interpretation Comments POC-GLUCOSE METER 155 mg/dL 70-110 H TESTED AT [facility] 6720 (BEAKER) (test code = JULIANO Osborne [place] 1538) [address] BASIC METABOLIC [id number] 05:39:00 Test Item Value Reference Range Interpretation [...] S NOT APPLICABLE FOR DIALYSIS PATIEN TS. [id number] 05:27:00 Test Item Value Reference Range Interpretation Comments PHOSPHORUS (BEAKER) (test code = 5.0 mg/dL 2.3-4.7 H 604) [id number] 05:27:00 Test Item Value Reference Range Interpretation Comments MAGNESIUM (BEAKER) (test code = 1.6 mg/dL 1.6-2.6 627) POCT-GLUCOSE [id number] 05:25:00 Test Item Value Reference Range Interpretation Comments POC-GLUCOSE METER 144 mg/dL 70-110 H TESTED AT [facility] 6720 (BEAKER) (test code = JULIANO Osborne [place] 1538) [address] PROTHROMBIN [id number] 04:58:00 Test Item Value Reference Range Interpretation Comments PROTIME ([facility]) (test code = 14.2 seconds 11.7-14.7 759) INR ([facility]) (test code = 370) 1.1 <=5.9 RECOMMENDED COUMADIN/WARFARIN INR THERAPY RANGESSTANDARD DOSE: 2.0 - 3.0 Includes: PROPHYLAXIS forvenous thrombosis, systemic embolization; TREATMENT for venous thrombosis and/or pulmonary embolus.HIGH RISK: Target INR is 2.5-3.5 for patients with mechanical heart valves.POCT-GLUCOSE [id number] 23:55:00 Test Item Value Reference Range Interpretation Comments POC-GLUCOSE METER 86 mg/dL 70-110 TESTED AT [place] [address] ([facility]) (test code = [facility] [address] 1538) B-TYPE NATRIURETIC FACTOR (BNP)2017-04-22 18:13:00 Test Item Value Reference Range Interpretation Comments B-TYPE NATRIURETIC PEPTIDE 1203 pg/mL 0-100 H ([facility]) (test code = 700) POCT-GLUCOSE [id number] 17:36:00 Test Item Value Reference Range Interpretation Comments POC-GLUCOSE METER 259 mg/dL 70-110 H TESTED AT [place] [address] ([facility]) (test code = [facility] 1538) [address] HEMOGLOBIN [id number] 14:24:00 Test Item Value Reference Range Interpretation Comments HEMOGLOBIN A1C ([facility]) (test code = 10.5 % 4.3-6.1 H 368) POCT-GLUCOSE [id number] 12:34:00 Test Item Value Reference Range Interpretation Comments POC-GLUCOSE METER 207 mg/dL 70-110 H TESTED AT [place] [address] ([facility]) (test code = [facility] 1538) [id number] 07:53:00 Test Item Value Reference Range Interpretation Comments PHOSPHORUS ([facility]) (test code = 3.9 mg/dL 2.3-4.7 604) [id number] 07:53:00 Test Item Value Reference Range Interpretation Comments MAGNESIUM ([facility]) (test code = 1.6 mg/dL 1.6-2.6 627) BASIC METABOLIC [id number] 07:53:00 Test Item Value Reference Range Interpretation [...] NOT APPLICABLE FOR DIALYSIS PATIEN TS. TROPONIN [id number] 07:29:00 Test Item Value Reference Range Interpretation [...] acidosis, acute neurological disease, and persistent tachyarrhythmia.PROTHROMBIN [id number] 07:01:00 Test Item Value Reference Range Interpretation Comments PROTIME (BEAKER) (test code = 13.8 seconds 11.7-14.7 759) INR (BEAKER) (test code = 370) 1.1 <=5.9 RECOMMENDED COUMADIN/WARFARIN INR THERAPY RANGESSTANDARD DOSE: 2.0 - 3.0 Includes: PROPHYLAXIS forvenous thrombosis, systemic embolization; TREATMENT for venous thrombosis and/or pulmonary embolus.HIGH RISK: Target INR is 2.5-3.5 for patients with mechanical heart valves.POCT-GLUCOSE [id number] 06:28:00 Test Item Value Reference Range Interpretation Comments POC-GLUCOSE METER 198 mg/dL 70-110 H TESTED AT [place] [address] ([facility]) (test code = JULIANO Osborne [place] 15[address]) [address] CREATINE KINASE (CK), TOTAL AND [id number] 00:49:00 Test Item Value Reference Range Interpretation Comments CREATINE KINASE TOTAL ([facility]) 69 U/L 29-200 (test code = 380) CREATINE KINASE-MB ([facility]) (test 4.3 ng/mL 0.0-6.6 code = 750) CREATINE KINASE-MB INDEX ([facility]) 6.2 % (test code = 395) CK-MB Reference Range:<6.7 Normal6.7-10.0 Borderline>10.0 AbnormalTROPONIN [id number] 00:49:00 Test Item Value Reference Range Interpretation Comments TROPONIN I ([facility]) (test code = 0.05 [...] acidosis, acute neurological disease, and persistent tachyarrhythmia.POCT-GLUCOSE [id number] 20:44:00 Test Item Value Reference Range Interpretation Comments POC-GLUCOSE METER 269 mg/dL 70-110 H TESTED AT [facility] ([facility]) (test code = JULIANO Osborne [place] 15[address]) [id number]
[2021-05-17] MEDS ORDERED: METHYLPREDNISOLONE 125 MG INJ ONE (21:25)
[2021-05-17] MEDS ORDERED: IPRATROPIUM BROM 0.5MG/2.5ML ONE (21:26)
[2021-05-17] MEDS ORDERED: LEVALBUTEROL 1.25 MG/3 ML NEB ONE (21:26)
[2021-05-17] MEDS ORDERED: FENTANYL CITR 100 MCG/2 ML ONE (21:26)
--- NOTE | 2021-05-17 21:42 | RAD REPORT ---
EXAM DESCRIPTION: CT - Head C Spine Cap Wo Con - 05/17/2021 9:24 pm CLINICAL HISTORY: fall;Pain, head, neck, chest and abdomen pain COMPARISON: Head C Spine Cap Wo Con dated 01/23/2020; Chest Single View dated 05/17/2021 TECHNIQUE: Axial [address] head images were obtained. Axial [address] cervical spine images were obtain ed with sagittal and coronal reconstruction images reviewed. Axial 5 mm images of the chest, abdomen and pelvis were obtained without IV contrast. Sagittal and coronal reconstruction of the chest, abdo men and pelvis performed. All CT scans are performed using dose optimization technique as appropriate and may include automated exposure control or mA/KV adjustment according to patient size. FINDINGS: No intracranial hemorrhage, mass or edema. No midline shift or abnormal fluid collection. No acute co rtical based infarction. No cortical edema or sulcal effacement. Chronic ischemic changes are scatter ed in the cerebral white matter, basal ganglia and thalamus tissues. Atrophy changes are mild. Ventri cles are in proportion to volume loss. Arterial tree calcifications are present. Mastoid air cells an d paranasal sinuses are clear. No skull fracture. Intracranial findings are similar to comparison. Cervical bodies are normal in height and alignment. No fracture or acute bone finding.C5-6 disc space narrowing with endplate spurring noted. Multilevel facet joint degenerative change present.No prever tebral soft tissue thickening or paraspinal mass.Central spine detail is inherently limited. There do es appear to be thickening and mineralization of the posterior longitudinal ligament spanning C3-C5. Prominent disc bulge and endplate spurring changes are present at C5-6. Findings cause significant ce ntral spinal stenosis down to 6 mm. Cord flattening will be present. Findings are not clearly differe nt from comparison. A few scattered nodular opacities are present in the left lung field. Moderately large right pleural effusion is present. There is partial atelectasis of the right lower lobe. Fluid is present along the fissure. There nodularity along the fissure and lateral pleural margin on the right. No pneumothorax or pulmonary contusion. No mediastinal hematoma, mass or abnormal lymphadenopathy. Dense aortic calc ifications are present. Double-lumen dialysis catheter is in place. Mild cardiomegaly present without pericardial effusion. Solid abdominal visceral no acute or suspicious findings for noncontrast imaging. Liver has a subtle nodular capsule contour. Spleen and pancreas show no acute findings. Adrenal glands and kidneys witho ut acute finding. Gallbladder is not identified and is believed be absent rather than tightly contrac merna. No biliary tree dilatation. Moderate stool volume seen in the colon. No acute GI process identif ied. Air is present within the lumen of the urinary bladder. This is presumed to be from catheterization p rocedure but needs correlation. No free air, free fluid, pneumatosis or other emergent finding. Patient has dense vascular tree calci fications. Prominent bony degenerative changes are present. Fluid retention is seen in the subcutaneo us fatty tissues. IMPRESSION: Atrophy and chronic ischemic pattern similar to comparison December 2019. No acute intrac ranial finding. Cervical spine degenerative change including significant multilevel central spinal stenosis and cord flattening. These findings are not substantially different comparison. No acute cervical spine findin g seen. Moderately large right pleural effusion with partial atelectasis of the right lower lobe and right mi ddle lobe. Fluid is retained in the fissures as well. Minimal nodularity of the right lung field note d difficult to distinguish from the isodense fluid and atelectasis. Minimal nodularity of the left crescencio ng field could be minimal pneumonitis. No acute CT abdomen or pelvis finding. Air in the urinary bladder lumen is presumed to be from a catheterization procedure and needs clinica l confirmation.
--- NOTE | 2021-05-17 21:45 | RAD REPORT ---
EXAM DESCRIPTION: RAD - Chest Single View - 05/17/2021 9:37 pm CLINICAL HISTORY: COUGH COMPARISON: Portable 04/09/2021 TECHNIQUE: AP portable chest image was obtained 05/17/2021 9:37 pm . FINDINGS: No new mass or consolidation. Moderate-size right pleural effusion has not changed. Dialys is catheter in place. Heart and vasculature are normal. No measurable pleural effusion and no pneumot horax. No acute bony abnormality seen. No acute aortic findings suspected. IMPRESSION: No acute cardiopulmonary process. Above detailed findings are stable from April 09.
--- NOTE | 2021-05-17 21:46 | RAD REPORT ---
EXAM DESCRIPTION: RAD - Knee Left 3 View - 05/17/2021 9:37 pm CLINICAL HISTORY: PAIN COMPARISON: No comparisons FINDINGS: No fracture, dislocation or periosteal reaction.Cross-table lateral view not optimal. Join t effusion is suspected but cannot be confirmed. Bones are osteopenic. Mild medial compartment narrow ing seen. Dense arterial tree calcifications. IMPRESSION: No acute bone or joint finding. Joint effusion is suspected. Clinical concerns for internal derangement or occult bony injury could be further assessed with MR im aging.
[2021-05-17 22:08] LABS: Hematocrit 35.8 % (36.0-45.0); Lymphocytes % 19.8 % (15.3-44.8); RBC Red Blood Cell Count 4.18 M/uL (3.86-4.86)
[2021-05-17 22:12] LABS: Protime INR 1.27
[2021-05-17 22:34] LABS: Bilirubin Direct 0.3 mg/dL (0-0.2); Bilirubin Total 0.7 mg/dL (0.2-1.0); Magnesium 1.7 mg/dL (1.8-2.4)
[2021-05-17 22:37] LABS: Troponin High Sensitivity 1950.3 pg/mL (<58.9)
--- NOTE | 2021-05-17 23:30 | EDPHYS ---
Physician Documentation [facility] Name: Christy Priest Age: 66 yrs Sex: Female : 1955 Arrival Date: 05/17/2021 Time: 19:23 Bed 13 Private MD: ED Physician Alessio Parry HPI: 05/17 23:23 This 66 yrs old Female presents to ER via Wheelchair with complaints of Fall carlos Injury, Knee Pain, Shortness Of Breath. 23:23 Details of fall: The patient fell from a height, off furniture, approximately 3 feet. carlos Onset: The symptoms/episode began/occurred this morning. Associated injuries: The patient sustained upper back injury, injury to the chest, ecchymosis. Severity of symptoms: At their worst the symptoms were moderate, in the emergency department the symptoms are unchanged. The patient has experienced similar episodes in the past, multiple times. Historical: - Allergies: 20:20 Nitroglycerin; ll3 20:20 tramadol; ll3 20:20 Vancomycin; ll3 - PMHx: 20:20 diabetes mellitus; Dialysis; Hypertensive disorder; COPD; Neuropathy; ll3 - PSHx: 20:20 [place] SX; ll3 - Immunization history:: Client reports having NOT received the Covid vaccine. - Social history:: Smoking status: Patient reports the use of cigarette tobacco products, denies chronic smoking, but will smoke occasionally. - Immunization history: Last tetanus immunization: - up to date. - Family history:: not pertinent. ROS: 23:23 Constitutional: Negative for fever, chills, and weight loss, Eyes: Negative for injury, carlos pain, redness, and discharge, ENT: Negative for injury, pain, and discharge, Neck: Negative for injury, pain, and swelling, Cardiovascular: Negative for chest pain, palpitations, and edema, Back: Negative for injury and pain, : Negative for injury, bleeding, discharge, and swelling, MS/Extremity: Negative for injury and deformity, Neuro: Negative for headache, weakness, numbness, tingling, and seizure. 23:23 Respiratory: Positive for cough, shortness of breath, at rest. 23:23 Abdomen/GI: Positive for abdominal pain, of the posterior aspect of right lateral abdomen, posterior aspect of left lateral abdomen, right upper quadrant and left upper quadrant. 23:23 MS/extremity: Positive for laceration, of the right antecubital area. Exam: 23:23 Constitutional: This is a well developed, well nourished patient who is awake, alert, carlos and in no acute distress. Head/Face: Normocephalic, atraumatic. Eyes: Pupils equal round and reactive to light, extra-ocular motions intact. Lids and lashes normal. Conjunctiva and sclera are non-icteric and not injected. Cornea within normal limits. Periorbital areas with no swelling, redness, or edema. ENT: Nares patent. No nasal discharge, no septal abnormalities noted. Tympanic membranes are normal and external auditory canals are clear. Oropharynx with no redness, swelling, or masses, exudates, or evidence of obstruction, uvula midline. Mucous membranes moist. Neck: Trachea midline, no thyromegaly or masses palpated, and no cervical lymphadenopathy. Supple, full range of motion without nuchal rigidity, or vertebral point tenderness. No Meningismus. Cardiovascular: Regular rate and rhythm with a normal S1 and S2. No gallops, murmurs, or rubs. Normal PMI, no JVD. No pulse deficits. Abdomen/GI: Soft, non-tender, with normal bowel sounds. No distension or tympany. No guarding or rebound. No evidence of tenderness throughout. 23:23 Chest/axilla: Inspection: normal, Palpation: tenderness, that is mild, that is moderate, of the left lateral posterior chest, right lateral posterior chest, left lateral anterior chest and right lateral anterior chest. 05/18 00:49 ECG was reviewed by the Attending Physician. [facility] Vital Signs: 05/17 20:14 BP 127 / 60; Pulse 82; Resp 18; Temp 97.7(TE); Pulse Ox 96% on R/A; Weight 62.14 kg ll3 (R); Height 5 ft. 7 in. (170.18 cm) (R); Pain 8/10; 21:59 BP 120 / 60; Pulse 86; Resp 20; Pulse Ox 99% on R/A; st1 05/18 02:00 BP 125 / 60; Pulse 65; Resp 14; Temp 98.0; Pulse Ox 100% on 2 lpm NC; st1 05/17 20:14 Body Mass Index 21.46 (62.14 kg, 170.18 cm) ll3 [place] Coma Score: 01:56 Eye Response: spontaneous(4). Verbal Response: oriented(5). Motor Response: obeys st1 commands(6). Total: 15. Trauma Score (Adult): 01:56 Eye Response: spontaneous(1); Verbal Response: oriented(1); Motor Response: obeys st1 commands(2); Systolic BP: > 89 mm Hg(4); Respiratory Rate: 10 to 29 per min(4); [place] Score: 15; Trauma Score: 12 MDM: 05/17 21:00 Patient medically screened. [facility] 23:26 Differential diagnosis: closed head injury, contusion. Data reviewed: vital signs, [facility] nurses notes, lab test result(s), EKG, radiologic studies. 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 Test interpretation: by ED physician or midlevel provider: ECG, plain radiologic studies. Counseling: I had a detailed discussion with the patient and/or guardian regarding: the historical points, exam findings, and any diagnostic results supporting the discharge/admit diagnosis, lab results, radiology results, the need for outpatient follow up, for definitive care, 05/17 21:01 Order name: Basic Metabolic Panel; Complete Time: 22:38 [facility] 05/17 21:01 Order name: CBC with Diff; Complete Time: 22:38 [facility] 05/17 21:01 Order name: LFT's; Complete Time: 22:38 [facility] 05/17 21:01 Order name: Magnesium; Complete Time: 22:38 [facility] 05/17 21:01 Order name: NT PRO-BNP; Complete Time: 22:38 [facility] 05/17 21:01 Order name: PT-INR; Complete Time: 22:38 [facility] 05/17 21:01 Order name: Troponin HS; Complete Time: 22:38 [facility] 05/17 21:01 Order name: XRAY Chest (1 view); Complete Time: 22:38 [facility] 05/17 21:02 Order name: CT Traumagram (Head C Spine CAP wo con); Complete Time: 22:38 [facility] 05/17 22:38 Order name: COVID-19 SARS RT PCR (Document "Date of Onset" if Symptomatic) la1 05/17 22:53 Order name: Urine Culture [facility] 05/18 00:21 Order name: Urine Dipstick-Ancillary EDMS 05/18 01:33 Order name: SARS-COV-2 RT PCR [facility] 05/17 21:01 Order name: EKG; Complete Time: 21:02 [facility] 05/17 21:01 Order name: Cardiac monitoring; Complete Time: 21:51 [facility] 05/17 21:01 Order name: EKG - Nurse/Tech; Complete Time: 21:51 [facility] 05/17 21:01 Order name: IV Saline Lock; Complete Time: 21:51 [facility] 05/17 21:01 Order name: Labs collected and sent; Complete Time: 21:51 [facility] 05/17 21:01 Order name: O2 Per Protocol; Complete Time: 21:51 [facility] 05/17 21:01 Order name: O2 Sat Monitoring; Complete Time: 21:51 [facility] 05/17 21:01 Order name: Wound Care: right elbow; Complete Time: 22:30 [facility] 05/17 21:11 Order name: Knee Left 3 View XRAY; Complete Time: 22:38 [facility] 05/17 22:53 Order name: Urine Dipstick-Ancillary (obtain specimen); Complete Time: 01:45 [facility] EC/18 00:49 Rate is 87 beats/min. Rhythm is regular. QRS [place] is Normal. PA interval is normal. QRS carlos interval is normal. QT interval is normal. No Q waves. T waves are Normal. No ST changes noted. Clinical impression: Abnormal EKG without significant change and No evidence of ischemia. Interpreted by me. Reviewed by me. Administered Medications: 05/17 21:52 Drug: fentaNYL (PF) 25 mcg Route: IVP; Site: right antecubital; st1 21:52 Drug: SOLU-Medrol (methylPrednisoLONE) 125 mg Route: IVP; Site: right antecubital; st1 21:52 Drug: Xopenex (levalbuterol) 2.5 mg Route: Inhalation; st1 21:52 Drug: AtroVENT (ipratropium) Aerosol 0.5 mg Route: Inhalation; st1 23:42 Drug: Rocephin (cefTRIAXone) 1 grams Route: IV; Rate: per protocol; Site: right st1 antecubital; Disposition Summary: 05/17/21 23:30 Hospitalization Ordered Hospitalization Status: Inpatient Admission carlos Provider: Greg Sepulveda cha Location: Telemetry/MedSurg (Inpatient) carlos Condition: Fair carlos Problem: new carlos Symptoms: have improved carlos Bed/Room Type: Standard carlos Room Assignment: 216(05/18/21 01:50) cg Diagnosis - Fall (on) (from) other stairs and steps - 3 carlos - COPD/ Chronic obstructive pulmonary disease with (acute) exacerbation carlos - Pleural effusion, not elsewhere classified - right large carlos - End stage renal disease - on HD carlos - Essential (primary) hypertension carlos - UTI/ Urinary tract infection, site not specified carlos Forms: - Medication Reconciliation Form carlos - SBAR form carlos Signatures: Dispatcher [employer] EDMS Alessio Parry MD MD cha Attema, Lee, SOFTWARE SUPPORT REPRESENTATIVE-C SOFTWARE SUPPORT REPRESENTATIVE-Cla1 Kaci Glass, RN RN cg Mary Cormier, RN RN ll3 Jael Mccarthy RN RN st1 Corrections: (The following items were deleted from the chart) 21:30 21:03 Knee Right 3 View+RAD.RAD.BRZ ordered. EDMS EDMS 21:40 21:31 Knee Right 3 View+RAD.RAD.BRZ ordered. EDMS EDMS 05/18 01:50 05/17 23:30 carlos cg
--- NOTE | 2021-05-17 23:30 | ER ---
Nurse's Notes [facility] Name: Christy Priest Age: 66 yrs Sex: Female : 1955 Arrival Date: 05/17/2021 Time: 19:23 Bed 13 Private MD: Diagnosis: Fall (on) (from) other stairs and steps-3;COPD/ Chronic obstructive pulmonary disease with (acute) exacerbation;Pleural effusion, not elsewhere classified-right large;End stage renal disease-on HD;Essential (primary) hypertension;UTI/ Urinary tract infection, site not specified Presentation: 05/17 20:14 Chief complaint: Patient states: "I fell off my bed this morning, the ambulance had to ll3 pick me up off the floor because my nephew couldn't, I landed on my knees and my ribs hurt real bad, and I think I have a UTI because I have been so rude and mean to my niece and nephew, when I have a bad UTI I say and do things that I don't remember, my nephew says he had to get me out of bed 5 time last night to use the bathroom". Coronavirus screen: Vaccine status: Patient reports being unvaccinated. Ebola Screen: No symptoms or risks identified at this time. Initial Sepsis Screen: Does the patient meet any 2 criteria? No. Patient's initial sepsis screen is negative. Does the patient have a suspected source of infection? No. Patient's initial sepsis screen is negative. Risk Assessment: Do you want to hurt yourself or someone else? Patient reports no desire to harm self or others. Onset of symptoms was May 17, 2021. Mechanism of Injury: Fall out of bed. Transition of care: patient was not received from another setting of care. 20:14 Method Of Arrival: Wheelchair ll3 20:14 Acuity: DENNY 3 ll3 05/18 01:57 Care prior to arrival: None. st03 31:58 Mechanism of Injury: Fall. 01:58 Trauma event details: Injury occurred: at home. Injury occurred: May 17, 2021. st1 Triage Assessment: 05/17 20:20 General: Appears comfortable, Behavior is cooperative, moaning . Pain: Complains of ll3 pain in left knee, right rib cage, H/A, neck pain Pain currently is 8 out of 10 on a pain scale. Neuro: Level of Consciousness is awake, alert, obeys commands, Oriented to person, place, time, situation. Cardiovascular: Patient's skin is warm and dry. Respiratory: Respiratory effort is even, unlabored, Respiratory pattern is regular, symmetrical. Derm: Bruising that is bright red, on left knee. Musculoskeletal: Reports pain in left knee. Trauma Activation: Physician: ED Physician; Name: roge; Notified At: 20:15; Arrived At: Physician: General Surgeon; Name: ; Notified At: 20:15; Arrived At: Physician: Radiology; Name: ; Notified At: 20:15; Arrived At: Physician: Respiratory; Name: ; Notified At: 20:15; Arrived At: Physician: Lab; Name: ; Notified At: 20:15; Arrived At: Historical: - Allergies: 20:20 Nitroglycerin; ll3 20:20 tramadol; ll3 20:20 Vancomycin; ll3 - PMHx: 20:20 diabetes mellitus; Dialysis; Hypertensive disorder; COPD; Neuropathy; ll3 - PSHx: 20:20 [place] SX; ll3 - Immunization history:: Client reports having NOT received the Covid vaccine. - Social history:: Smoking status: Patient reports the use of cigarette tobacco products, denies chronic smoking, but will smoke occasionally. - Immunization history: Last tetanus immunization: - up to date. - Family history:: not pertinent. Screenin:54 Abuse screen: Denies threats or abuse. Nutritional screening: No deficits noted. st1 Tuberculosis screening: No symptoms or risk factors identified. Fall Risk None identified. Fall in past 12 months (25 points). No secondary diagnosis (0 pts). IV access (20 points). Ambulatory Aid- Crutches/Cane/Walker (15 pts). Gait- Weak (10 pts.). Mental Status- Oriented to own ability (0 pts). Total Merlos Fall Scale indicates High Risk Score (45 or more points). Fall prevention measures have been instituted. Side Rails Up X 2 Placed Close to Nursing Station Frequent Obs/Assessments Occuring As available patient and family educated on Fall Prevention Program and Strategies. Primary Survey: 21:57 NO uncontrolled hemorrhage observed. A: The patient is alert. Airway: patent, Patient st1 intubated prior to arrival No supplemental oxygen in use on arrival. Oral cavity: clear, Trachea midline. Breathing/Chest: Respiratory pattern: regular, Respiratory effort: spontaneous, Breath sounds: diminished, bilaterally. Chest inspection: symmetrical rise and fall of the chest. Circulation: Cardiac rhythm: sinus rhythm Heart tones present. Pulses: palpable right radial artery, right brachial artery, right popliteal artery, right posterior tibial artery, right dorsalis pedis artery, left radial artery, left brachial artery, left femoral artery, left popliteal artery, left posterior tibial artery, left dorsalis pedis artery, bilateral radial, brachial, femoral, popliteal, posterior tibial, and dorsalis pedis arteries., left carotid pulse and right carotid pulse. Skin color: pink, Skin temperature: warm, dry, Arterial Line:. Disability Alert Verbal Stimuli. Exposure/Environment: A warming method has been applied: A warm blanket has been provided to the patient. 05/18 01:57 Reassessment Breathing/Chest Respiratory pattern Regular. st1 Assessment: 05/17 21:56 Reassessment: Patient and/or family updated on plan of care and expected duration. Pain st1 level reassessed. Patient is alert, oriented x 3, equal unlabored respirations, skin warm/dry/pink. The patient states she fell and has a skin tear on her right elbow. General: Appears distressed, uncomfortable, slender, unkempt, Behavior is cooperative, anxious. Vital Signs: 20:14 BP 127 / 60; Pulse 82; Resp 18; Temp 97.7(TE); Pulse Ox 96% on R/A; Weight 62.14 kg ll3 (R); Height 5 ft. 7 in. (170.18 cm) (R); Pain 8/10; 21:59 BP 120 / 60; Pulse 86; Resp 20; Pulse Ox 99% on R/A; st1 05/18 02:00 BP 125 / 60; Pulse 65; Resp 14; Temp 98.0; Pulse Ox 100% on 2 lpm NC; st1 05/17 20:14 Body Mass Index 21.46 (62.14 kg, 170.18 cm) ll3 Corby Coma Score: 01:56 Eye Response: spontaneous(4). Verbal Response: oriented(5). Motor Response: obeys st1 commands(6). Total: 15. Trauma Score (Adult): 01:56 Eye Response: spontaneous(1); Verbal Response: oriented(1); Motor Response: obeys st1 commands(2); Systolic BP: > 89 mm Hg(4); Respiratory Rate: 10 to 29 per min(4); Corby Score: 15; Trauma Score: 12 ED Course: 05/17 19:23 Patient arrived in ED. wm 20:19 Triage completed. ll3 20:20 Arm band placed on. ll3 21:00 Alessio Parry MD is Attending Physician. [facility] 21:17 Jael Mccarthy, GUILHERME is Primary Nurse. st1 21:24 CT Traumagram (Head C Spine CAP wo con) In Process Unspecified. EDMS 21:37 XRAY Chest (1 view) In Process Unspecified. EDMS 21:37 Knee Left 3 View XRAY In Process Unspecified. EDMS 21:51 Troponin HS Sent. st1 21:51 PT-INR Sent. st1 21:51 NT PRO-BNP Sent. st1 21:51 Magnesium Sent. st1 21:51 LFT's Sent. st1 21:51 CBC with Diff Sent. st1 21:51 Basic Metabolic Panel Sent. st1 21:53 Patient has correct armband on for positive identification. Bed in low position. Call st1 light in reach. Side rails up X2. monitor worker on. Pulse ox on. NIBP on. Warm blanket given. Verbal reassurance given. 21:53 Initial Neb Treatment Given as ordered Patient was instructed and evaluated on st1 procedure Patient tolerated procedure well without adverse effect. Inserted saline lock: 20 gauge in right antecubital area, using aseptic technique. 22:37 Wound care: to Skin tear located on right elbow was cleaned with Betadine, dressed with st1 4X4s, Vaseline gauze, Coban , Patient tolerated well. 23:28 Greg Sepulveda MD is Hospitalizing Provider. [facility] 05/18 00:13 COVID-19 SARS RT PCR (Document "Date of Onset" if Symptomatic) Sent. st1 01:44 Urine Culture Sent. st1 01:56 No provider procedures requiring assistance completed. st1 01:57 Oxygen administration via nasal cannula \\T\\ 2L/min. st1 01:57 Thermoregulation: warm blanket given to patient. st1 01:58 Patient admitted, IV remains in place. st1 Administered Medications: 05/17 21:52 Drug: fentaNYL (PF) 25 mcg Route: IVP; Site: right antecubital; st1 21:52 Drug: SOLU-Medrol (methylPrednisoLONE) 125 mg Route: IVP; Site: right antecubital; st1 21:52 Drug: Xopenex (levalbuterol) 2.5 mg Route: Inhalation; st1 21:52 Drug: AtroVENT (ipratropium) Aerosol 0.5 mg Route: Inhalation; st1 23:42 Drug: Rocephin (cefTRIAXone) 1 grams Route: IV; Rate: per protocol; Site: right st1 antecubital; Output: 05/18 01:56 Urine: 350ml (Voided); Total: 350ml. st1 Outcome: 05/17 23:30 Decision to Hospitalize by Provider. [facility] 05/18 01:57 Patient's length of stay was not longer than 2 hours[address] st1 01:57 Admitted to Tele accompanied by tech, via stretcher, room 216, with oxygen, with chart. st1 01:57 Condition: stable st1 01:57 Instructed on the need for admit. 03:09 Patient left the ED. st1 Signatures: Dispatcher [employer] Alessio Milian MD MD cha Marsh, Wendy wm Loubet, Lynsea RN RN ll3 Jael Mccarthy RN RN st1
[2021-05-17] MEDS ORDERED: CEFTRIAXONE 1000 MG/VIAL ONE (23:41)
--- NOTE | 2021-05-18 00:03 | P.HP ---
Certification for Inpatient Patient admitted to: Observation With expected LOS: <2 Midnights Patient will require the following post-hospital care: None Practitioner: I am a practitioner with admitting privileges, knowledge of patient current condition, hospital course, and medical plan of care. Services: Services provided to patient in accordance with Admission requirements found in Title 42 Section 412.3 of the Code of Federal Regulations Patient History Date of Service: 05/17/21 Reason for admission: Fall, volume overload History of Present Illness: 66-year-old female with history of ESRD on HD, CAD status post CABG, CHF, hypertension, diabetes mellitus type 2insulin-dependent, hyperlipidemia presents emergency department after having a fall at home today. Patient is complaining of knee pain and pain to her ribs also reports that she felt like she had urinary tract infection. Patient was evaluated in the emergency department her labs were significant for creatinine 3.1 GFR 15 magnesium 1.7 troponin high-sensitivity 1950.3 BNP 125,242 hemoglobin 11.6 hematocrit 35.8 chest x-ray moderate sized right pleural effusion dialysis catheter in place x- ray of the left knee negative for any acute findings CT head neck chest abdomen pelvis demonstrated moderately large right pleural effusion with partial atelectasis of the right lower lobe and right middle lobe fluid retained in the fissures as well as minimal nodularity of the right lung field noted difficulty extinguished revised as fluid and atelectasis minimal nodularity in the left lung could be minimal pneumonitis air the urinary bladder lumen is presumed to be from the catheterization procedure needs clinical confirmation. Patient has not had urinary catheter during this visit although she was recently hospitalized at another facility per patient. Was given Rocephin in the ER given elevated troponin volume overload and mild dyspnea ED provider wishes to admit overnight for observation. Allergies morphine Allergy (Severe, Verified 10/11/20 04:32) Anaphylaxis vancomycin Allergy (Intermediate, Verified 10/11/20 04:32) Shortness of breath basil Allergy (Verified 10/11/20 04:32) Nausea/Vomiting tramadol Allergy (Verified 10/11/20 04:32) Nausea/Vomiting trazodone Allergy (Verified 10/11/20 04:32) Nausea/Vomiting nitroglycerin Adverse Reaction (Mild, Verified 10/11/20 04:32) Nausea/Vomiting Home Medications: Aspirin 81 mg PO DAILY 06/13/20 Clopidogrel Bisulfate [Plavix*] 75 mg PO DAILY 06/13/20 Furosemide [Lasix*] 40 mg PO BID 06/14/20 Gabapentin [Neurontin*] 100 mg PO BID 06/14/20 Dicyclomine HCl 1 tab PO Q6H PRN 12/06/20 Sevelamer Carbonate [Renvela*] 2 tab PO TIDWM 12/06/20 Sertraline [Zoloft*] 50 mg PO DAILY #30 tab 02/26/21 Thiamine HCl [Vitamin B-1*] 100 mg PO DAILY #30 tablet 02/26/21 Atorvastatin Calcium [Lipitor] 40 mg OP BEDTIME 03/26/21 Isosorbide Dinitrate 1 tab PO DAILY 03/26/21 Lisinopril [Zestril] 20 mg PO DAILY 03/26/21 Medihoney [Medihoney Woundcare Gel*] 1 appl TOP DAILY #1 tube 03/27/21 Metoprolol Tartrate 25 mg PO BID #60 tablet 03/27/21 Sertraline [Zoloft*] 100 mg PO DAILY #30 tab 03/27/21 Heparin [Heparin 1,000 units/mL *] 8,000 unit IV EVERY HD PRN vial 04/11/21 Hydrocodone 5/APAP 325 [[place] 5/325*] 1 tab PO Q6H PRN #20 tab 04/11/21 levoFLOXacin [Levaquin] 500 mg PO Q48H #3 tab 04/11/21 - Past Medical/Surgical History Diabetic: Yes -: COPD -: Hypertension -: CAD, CABG x4 vessels (August 2017) -: Diabetes mellitus type 2, insulin-dependent -: Chronic combined systolic/diastolic CHF -: Uterine cancer status post hysterectomy -: Chronic renal disease, stage IV -: TB as a child - Negative 2017 -: Hyperlipidemia -: Iron deficiency anemia -: WEST -: ESRD on HD -: Rectal surgery -: Hysterectomy -: Cholecystectomy -: Gastric surgery -: Appendectomy -: CABG x4 vessel -: RLE Femoral popliteal bypass -: Left great toe amputation Psychosocial/ Personal History: The patient is a . Her son lives with her. She has 3 children. - Family History Brother -: Heart disease, Hypertension, Cancer Notes: Father -: Heart disease, Lung disease, Cancer Notes: - Prostate surgery - Hemorrhage Mother -: GI disease Notes: Sister -: Heart disease Notes: - Respiratory failure - Social History Alcohol use: No CD- Drugs: No Caffeine use: Yes Place of Residence: Home Review of Systems 10-point ROS is otherwise unremarkable Respiratory: Cough, Shortness of Breath Musculoskeletal: Leg Pain (Left knee pain), As per HPI Physical Examination - Physical Exam General: Alert, In no apparent distress, Oriented x3 HEENT: Atraumatic, PERRLA, Mucous membr. moist/pink, EOMI, Sclerae nonicteric Neck: Supple, 2+ carotid pulse no bruit, No LAD, Without JVD or thyroid abnormality Respiratory: Clear to auscultation bilaterally, Normal air movement Cardiovascular: Regular rate/rhythm, Normal S1 S2 Capillary refill: <2 Seconds Gastrointestinal: Normal bowel sounds, No tenderness Musculoskeletal: No tenderness Integumentary: No rashes Neurological: Normal speech, Normal strength at 5/5 x4 extr, Normal tone, Normal affect - Studies Laboratory Data (last 24 hrs) 05/17/21 21:48: PT 14.6 H, INR 1.27 05/17/21 21:48: WBC 10.30, Hgb 11.6 L, Hct 35.8 L, Plt Count 156 05/17/21 21:48: Sodium 136, Potassium 4.0, BUN 30 H, Creatinine 3.10 H, Glucose 78, Magnesium 1.7 L, Total Bilirubin 0.7, AST 36, ALT 25, Alkaline Phosphatase 142 H Assessment and Plan - Plan Assessment: Generalized weakness, fall Elevated troponin Dyspnea secondary to ESRD on HD with volume overload Acute on chronic combined systolic/diastolic congestive heart failure Diabetes mellitus type 2insulin-dependent Hypertension Anemia of chronic disease CAD S/P CABG Plan: Generalized weakness, fall: PT consulted for evaluation, fall precautions. Elevated troponin: Suspect demand ischemia related to volume overload/acute on chronic systolic/diastolic congestive heart failure and ESRD on HD. Will trend troponin level, patient is without chest pain at this time. EKG without ST elevation. Will consult cardiology if troponin continues to climb. Dyspnea secondary to ESRD on HD with volume overload: Obtain and continue medications, nephrology consulted for additional assistance to see if patient will require dialysis while in the hospital. Reports that she has been changed to dialysis just Tuesdays and Saturdays at this time. Acute on chronic combined systolic/diastolic congestive heart failure: Continue as above, nephrology consulted patient may require dialysis during hos pitalization. Diabetes mellitus type 2insulin-dependent: A [facility] Accu-Chek, sliding scale insulin. Hypertension: Continue home meds Anemia of chronic disease: Stable CAD S/P CABG: Stable, high-sensitivity troponin is elevated although I suspect demand ischemia will trend troponin and monitor on telemetry. Patient chest pain-free at this time. DVT PPX: Code status: Discharge Plan: Home Plan to discharge in: 24 Hours - Advance Directives Does patient have a Living Will: No Does patient have a Durable POA for Healthcare: No - Code Status/Comfort Care Code Status Assessed: Yes (Full) Critical Care: No Time Spent Managing Pts Care (In Minutes): 55
[2021-05-18 00:20] LABS: Urine Blood 2+ (Negative); Urine Glucose Negative (Negative); Urine Protein 2+ (Negative); Urine Specific Gravity 1.015 (1.005-1.030)
[2021-05-18] MEDS ORDERED: ONDANSETRON 4 MG/2 ML VIAL IV PRN (01:50)
[2021-05-18 03:51] LABS: Absolute Lymphocytes (CBC) 0.3 K/uL (0.7-4.9); Hematocrit 33.9 % (36.0-45.0); Lymphocytes % 3.5 % (15.3-44.8); MPV 7.7 fL (7.6-11.3); RBC Red Blood Cell Count 3.93 M/uL (3.86-4.86)
[2021-05-18 05:12] VITALS: O2SAT 98; BMI 22.6
[2021-05-18] MEDS: HYDROCODONE/APAP 7.5/325 MG TAB PO PRN ×3 (05:16→21:55)
[2021-05-18 05:50] LABS: Albumin 1.8 g/dL (3.4-5.0); Bilirubin Total 0.5 mg/dL (0.2-1.0); Potassium 4.2 mmol/L (3.5-5.1); Protein, Total 5.9 g/dL (6.4-8.2)
[2021-05-18 05:53] LABS: Troponin High Sensitivity 1135.5 pg/mL (<58.9)
[2021-05-18] MEDS: INSULIN -REGULAR HUMAN 50 UNIT/0.5 ML ML SQ SCH ×4 (07:30→21:00)
[2021-05-18] MEDS: CEFTRIAXONE 1,000 MG in NA CHLORIDE 0.9% 50 ML IVPB SCH (08:50)
[2021-05-18] MEDS: HEPARIN 5000 UNIT/ML 1 ML VIAL SQ SCH ×2 (08:50→21:56)
--- NOTE | 2021-05-18 09:43 | P.CNS ---
Date of Consult: 05/18/21 Reason for Consult: ESRD Requesting Physician: Greg Sepulveda Chief Complaint: Fall, volume overload History of Present Illness: 66F w/ PMHx of ESRD presumed to be 2/2 DM/Htn, on HD TTS at [facility], DM2, Htn, HLD, CAD status post CABG, & CHF, who p/w L knee pain & SOB. She reports she fell at home. She is found to be volume overloaded. CT imaging of head/neck/C/A/P unremarkable except for moderately large right pleural effusion. L knee imaging unremarkable. Urinalysis showed pyuria. Allergies morphine Allergy (Severe, Verified 10/11/20 04:32) Anaphylaxis vancomycin Allergy (Intermediate, Verified 10/11/20 04:32) Shortness of breath basil Allergy (Verified 10/11/20 04:32) Nausea/Vomiting tramadol Allergy (Verified 10/11/20 04:32) Nausea/Vomiting trazodone Allergy (Verified 10/11/20 04:32) Nausea/Vomiting nitroglycerin Adverse Reaction (Mild, Verified 10/11/20 04:32) Nausea/Vomiting Home Medications: Aspirin 81 mg PO DAILY 06/13/20 Clopidogrel Bisulfate [Plavix*] 75 mg PO DAILY 06/13/20 Furosemide [Lasix*] 40 mg PO BID 06/14/20 Gabapentin [Neurontin*] 100 mg PO BID 06/14/20 Dicyclomine HCl 1 tab PO Q6H PRN 12/06/20 Sevelamer Carbonate [Renvela*] 2 tab PO TIDWM 12/06/20 Thiamine HCl [Vitamin B-1*] 100 mg PO DAILY #30 tablet 02/26/21 Atorvastatin Calcium [Lipitor] 40 mg OP BEDTIME 03/26/21 Isosorbide Dinitrate 1 tab PO DAILY 03/26/21 Metoprolol Tartrate 25 mg PO BID #60 tablet 03/27/21 Heparin [Heparin 1,000 units/mL *] 8,000 unit IV EVERY HD PRN vial 04/11/21 - Past Medical/Surgical History Diabetic: Yes -: COPD -: Hypertension -: CAD, CABG x4 vessels (August 2017) -: Diabetes mellitus type 2, insulin-dependent -: Chronic combined systolic/diastolic CHF -: Uterine cancer status post hysterectomy -: Chronic renal disease, stage IV -: TB as a child - Negative 2018 -: Hyperlipidemia -: Iron deficiency anemia -: WEST -: ESRD on HD -: Rectal surgery -: Hysterectomy -: Cholecystectomy -: Gastric surgery -: Appendectomy -: CABG x4 vessel -: RLE Femoral popliteal bypass -: Left great toe amputation Psychosocial/ Personal History: The patient is a . Her son lives with her. She has 3 children. - Family History Brother Medical History: Heart disease, Hypertension, Cancer Notes: Father Medical History: Heart disease, Lung disease, Cancer Notes: - Prostate surgery - Hemorrhage Mother Medical History: GI disease Notes: Sister Medical History: Heart disease Notes: - Respiratory failure - Social History Smoking Status: Current some day smoker Alcohol use: No CD- Drugs: No Caffeine use: Yes Place of Residence: Home Review of Systems General: Weakness Eyes: Unremarkable ENT: Unremarkable Respiratory: Shortness of Breath Cardiovascular: Edema Gastrointestinal: Nausea Genitourinary: Unremarkable Musculoskeletal: Atrophy, Pedal edema Integumentary: Bruising Neurological: Weakness Lymphatics: Unremarkable Physical Examination Temp Pulse Resp BP Pulse Ox 97.8 F 74 16 148/72 H 94 05/18/21 08:00 05/18/21 08:00 05/18/21 08:00 05/18/21 08:00 05/18/21 08:00 General: Other (chronically ill-appearing) HEENT: Atraumatic, Normocephalic Neck: Supple, JVD not distended Respiratory: Diminished, Other (symmetric chest expansion) Cardiovascular: No rubs, No murmurs Gastrointestinal: Soft and benign, No guarding Musculoskeletal: No clubbing, Swelling Integumentary: No warmth Neurological: Normal speech, Normal tone Lymphatics: No axilla or inguinal lymphadenopathy Urinary: Other (no bladder distention) External genitalia: Deferred Rectal: Deferred Laboratory Data (last 24 hrs) 05/17/21 21:48: PT 14.6 H, INR 1.27 05/17/21 21:48: WBC 10.30, Hgb 11.6 L, Hct 35.8 L, Plt Count 156 05/17/21 21:48: Sodium 136, Potassium 4.0, BUN 30 H, Creatinine 3.10 H, Glucose 78, Magnesium 1.7 L, Total Bilirubin 0.7, AST 36, ALT 25, Alkaline Phosphatase 142 H Conclusions/Impression: # ESRD presumed to be 2/2 Htn/DM on HD qTTS at [facility] PUF today x 3L off HD tomorrow EDW 69 kg, HD access: L permacath Nephro-karis po daily Renal + DM diet Monitor renal panel # SOB, CAD, CHF +recent covid pna +Costochondritis component. Pain meds prn. Trop neg, BNP elevated Cont cardioprudent meds HD as above # Htn BP variable Cont current BP med regimen # L knee pain s/p fall Supportive care PT/OT # Anemia Retacrit qTTS # Renal osteodystrophy Cont Sevelamer # COPD Per primary team # DM2 Per primary team
[2021-05-18] MEDS ORDERED: NA CHLORIDE 0.9% 50 ML ONE (09:58)
[2021-05-18] MEDS ORDERED: DIPHENHYDRAMINE 50 MG/ML VIAL IV ONE (10:11)
--- NOTE | 2021-05-18 13:04 | EKG ---
Test Date: 2021-05-17 Test Time: 23:37:11 Time Study Engineer: CASE MEASUREMENT RESULTS: Intervals: Rate: 87 ME: 180 QRSD: 108 QT: 402 QTc: 483 Advance: P: 76 ME: 180 QRS: 135 T: 14 INTERPRETIVE STATEMENTS: Normal sinus rhythm Incomplete right bundle branch block Possible Right ventricular hypertrophy Anterior infarct, age undetermined Abnormal ECG Compared to ECG 04/09/2021 21:42:54 Incomplete right bundle-branch block now present Right-axis deviation no longer present Myocardial infarct finding still present Electronically Signed On 05-18-21 13:02:50 COIL STRAPPER by Taj Raymond
--- NOTE | 2021-05-18 13:34 | P.PN ---
Subjective Date of Service: 05/18/21 Chief Complaint: Fall, volume overload Subjective: No new changes, No C/O voiced (Awaiting dialysis) Physical Examination - Vital Signs Temperature: 97.8 F Blood Pressure: 189/91 Pulse: 80 Respirations: 20 Pulse Ox (%): 99 - Studies Laboratory Data (last 24 hrs) 05/17/21 21:48: PT 14.6 H, INR 1.27 05/17/21 21:48: WBC 10.30, Hgb 11.6 L, Hct 35.8 L, Plt Count 156 05/17/21 21:48: Sodium 136, Potassium 4.0, BUN 30 H, Creatinine 3.10 H, Glucose 78, Magnesium 1.7 L, Total Bilirubin 0.7, AST 36, ALT 25, Alkaline Phosphatase 142 H Assessment And Plan Physician Review: Patient Assessed, Agree with Above Assessment and Plan Physician Review Additional Text: 05/18/21 13:32 - Physical Exam General: Alert, In no apparent distress, Oriented x3 HEENT: Atraumatic, PERRLA, Mucous membr. moist/pink, EOMI, Sclerae nonicteric Neck: Supple, 2+ carotid pulse no bruit, No LAD, Without JVD or thyroid abnormality Respiratory: Clear to auscultation bilaterally, Normal air movement Cardiovascular: Regular rate/rhythm, Normal S1 S2 Capillary refill: <2 Seconds Gastrointestinal: Normal bowel sounds, No tenderness Musculoskeletal: No tenderness Integumentary: No rashes Neurological: Normal speech, Normal strength at 5/5 x4 extr, Normal tone, Normal affect Assessment and Plan - Plan Assessment: Generalized weakness, fall Elevated troponin Dyspnea secondary to ESRD on HD with volume overload Acute on chronic combined systolic/diastolic congestive heart failure Diabetes mellitus type 2insulin-dependent Hypertension Anemia of chronic disease CAD S/P CABG Plan: Generalized weakness, fall: PT consulted for evaluation, fall precautions. Elevated troponin: Suspect demand ischemia related to volume overload/acute on chronic systolic/diastolic congestive heart failure and ESRD on HD. Will trend troponin level, patient is without chest pain at this time. EKG without ST elevation. Will consult cardiology if troponin continues to climb. Dyspnea secondary to ESRD on HD with volume overload: Noncompliant with dialysisTTS schedule States her reason for noncompliance is due to issues with diarrhea during outpatient dialysis Appears to be comfortable getting dialysis only as inpatient basis, status post recent discharge from hospital 1 week ago and states that was her last dialysis Need for dialysis compliance discussed Follow-up plan for HD today and in a.m. and then discharged home Saturating well on room air now Acute on chronic combined systolic/diastolic congestive heart failure: As above, due to cardiorenal syndrome type 4 Diabetes mellitus type 2insulin-dependent: A [facility] Accu-Chek, sliding scale insulin. Hypertension: Continue home meds Anemia of chronic disease: Stable CAD S/P CABG: Stable, elevated troponin may be due to renal failure, monitor trend for rule out underlining "ischemia . Patient chest pain-free at this time. DVT PPX: Code status: Time Spent Managing PTS Care (In Minutes): 35
[2021-05-18] MEDS ORDERED: EPOETIN 4,000 UNIT/ML VIAL SQ ONE (17:00)
[2021-05-18] MEDS ORDERED: DIPHENHYDRAMINE 25 MG TAB/CAP PO ONE (22:06)
[2021-05-19 06:19] LABS: Absolute Lymphocytes (CBC) 1.6 K/uL (0.7-4.9); Hematocrit 33.1 % (36.0-45.0); Lymphocytes % 18.4 % (15.3-44.8); MPV 7.8 fL (7.6-11.3); RBC Red Blood Cell Count 3.87 M/uL (3.86-4.86)
[2021-05-19 06:34] LABS: Magnesium 1.7 mg/dL (1.8-2.4); Phosphorus 3.6 mg/dL (2.5-4.9)
[2021-05-19 06:36] LABS: Albumin 1.7 g/dL (3.4-5.0); Bilirubin Total 0.3 mg/dL (0.2-1.0); Potassium 4.8 mmol/L (3.5-5.1); Protein, Total 5.8 g/dL (6.4-8.2)
[2021-05-19] MEDS: INSULIN -REGULAR HUMAN 50 UNIT/0.5 ML ML SQ SCH ×2 (07:30→11:30)
[2021-05-19] MEDS: SEVELAMER CARBONATE 800 MG TABLET PO SCH ×2 (08:00→12:00)
[2021-05-19] MEDS: HEPARIN 5000 UNIT/ML 1 ML VIAL SQ SCH (08:41)
[2021-05-19] MEDS: CEFTRIAXONE 1,000 MG in NA CHLORIDE 0.9% 50 ML IVPB SCH (08:59)
[2021-05-19] MEDS ORDERED: MULTIVITAMINS,THERAPEUT 1 TAB PO SCH (09:00)
--- NOTE | 2021-05-19 12:20 | P.DS ---
Admission Date: 05/18/21 Discharge Date: 05/19/21 Discharge Condition: FAIR Reason for Admission: Fall, volume overload Brief History of Present Illness: History of ESRD on HD with regular noncompliance with scheduled dialysis admitted for shortness of breath and seeking dialysis. Hospital Course: Hospital course Patient was admitted with fluid overload and elevated blood pressure due to missed dialysis. She states chronic diarrhea and cramps is what prevents her from regular dialysis. She underwent hemodialysis with ultrafiltration. Patient was initially scheduled for repeat of her dialysis today but refusing now. She is complaining of diarrhea now although nursing staff reports no bowel movement since admission. She is willing to go to dialysis this week as outpatient. She states she wants to go home today as she is scheduled for transposition of fistula next week Exam General: Alert, In no apparent distress, Oriented x3 HEENT: Atraumatic, PERRLA, Mucous membr. moist/pink, EOMI, Sclerae nonicteric Neck: Supple, 2+ carotid pulse no bruit, No LAD, Without JVD or thyroid abnormality Respiratory: Clear to auscultation bilaterally, Normal air movement Cardiovascular: Regular rate/rhythm, Normal S1 S2 Capillary refill: <2 Seconds Gastrointestinal: Normal bowel sounds, No tenderness Musculoskeletal: No tenderness Integumentary: No rashes Neurological: Normal speech, Normal strength at 5/5 x4 extr, Normal tone, Normal affect Vital Signs/Physical Exam: Temp Pulse Resp BP Pulse Ox 97.4 F 70 15 159/81 H 98 05/19/21 08:00 05/19/21 08:00 05/19/21 08:00 05/19/21 08:00 05/19/21 08:00 Laboratory Data at Discharge: WBC 8.60 K/uL (4.3-10.9) 05/19/21 05:51 Hgb 10.7 g/dL (12.0-15.0) L 05/19/21 05:51 Hct 33.1 % (36.0-45.0) L 05/19/21 05:51 Plt Count 137 K/uL (152-406) L 05/19/21 05:51 PT 14.6 SECONDS (9.5-12.5) H 05/17/21 21:48 INR 1.27 05/17/21 21:48 Sodium 133 mmol/L (136-145) L 05/19/21 05:51 Potassium 4.8 mmol/L (3.5-5.1) 05/19/21 05:51 BUN 46 mg/dL (7-18) H 05/19/21 05:51 Creatinine 3.28 mg/dL (0.55-1.3) H 05/19/21 05:51 Glucose 92 mg/dL (74-106) 05/19/21 05:51 Phosphorus 3.6 mg/dL (2.5-4.9) 05/19/21 05:51 Magnesium 1.7 mg/dL (1.8-2.4) L 05/19/21 05:51 Total Bilirubin 0.3 mg/dL (0.2-1.0) 05/19/21 05:51 AST 21 U/L (15-37) 05/19/21 05:51 ALT 19 U/L (12-78) 05/19/21 05:51 Alkaline Phosphatase 120 U/L (45-117) H 05/19/21 05:51 Home Medications: Aspirin 81 mg PO DAILY 06/13/20 Clopidogrel Bisulfate [Plavix*] 75 mg PO DAILY 06/13/20 Furosemide [Lasix*] 40 mg PO BID 06/14/20 Gabapentin [Neurontin*] 100 mg PO BID 06/14/20 Sevelamer Carbonate [Renvela*] 2 tab PO TIDWM 12/06/20 Thiamine HCl [Vitamin B-1*] 100 mg PO DAILY #30 tablet 02/26/21 Atorvastatin Calcium [Lipitor] 40 mg OP BEDTIME 03/26/21 Isosorbide Dinitrate 1 tab PO DAILY 03/26/21 Metoprolol Tartrate 25 mg PO BID #60 tablet 03/27/21 Diet: Renal Activity: Ad shira Followup: NONE,NONE [Primary Care Provider] - Physician Review: Patient Assessed, Agree with Above Assessment and Plan Time spent managing pt's care (in minutes): 35
[2021-05-19 12:53] VITALS: BP 163/73; TEMP 97.5
[2021-05-19] MEDS ORDERED: DIPHENHYDRAMINE 50 MG/ML VIAL IV ONE (13:01)
[2021-05-19] MEDS: HYDROCODONE/APAP 7.5/325 MG TAB PO PRN (13:07)
--- NOTE | 2021-05-20 02:05 | PN ---
Date of Progress Note: 05/19/2021 Chief Complaint: Volume overload, congestive heart failure, status post fall. History Of Present Illness: The patient is very noncompliant with dialysis. She came to the [facility] after she sustained fall at home. Today she is due to do dialysis. She had dialysis yesterday and procedure was well tolerated. The patient had ultrafiltration done to treat fluid overload today. She denies shortness of breath. Denies PND, orthopnea. Physical Examination: Lungs: Diminished breath sounds at bases. Heart: S1, S2. Abdomen: Soft, benign. Extremities: Edema present in both legs, although has improved. Impression And Plan: 1.The patient has end-stage renal disease. She will continue dialysis for volume overload and to ob tain metabolic clearance. She has [id number] combined systolic and diastolic congestive heart failure. Continue p.o. fluid restriction. The patient will continue dialysis with ultrafiltration a nd procedure is scheduled for today. 2.Diabetes mellitus with renal manifestation. Continue insulin. 3.Anemia in chronic kidney disease. Monitor hemoglobin level. Adjust BRONWYN. 4.Coronary artery disease status post coronary artery bypass graft. Troponin was elevated. Recomme nd Cardiology clearance. EB/MODL Voice ID: [id number] Report ID: [id number]
== END 2021-05-19 15:40 | disposition home health service (06) | DRG 640 ==
LOC: ER 19:18 → ERHOLD 23:41 → 2ND 05-18 03:00 → OBSVTOIN 05-18 20:24
PROVIDERS: ADMIT Internal Medicine; ATTEND Internal Medicine
DX: E87.70 Fluid overload, unspecified (principal); N18.6 End stage renal disease; I50.43 Acute on chronic combined systolic (congestive) and diastolic (congestive) heart failure; I13.2 Hypertensive heart and chronic kidney disease with heart failure and with stage 5 chronic kidney disease, or end stage renal disease; I24.8 Other forms of acute ischemic heart disease; N39.0 Urinary tract infection, site not specified; E11.22 Type 2 diabetes mellitus with diabetic chronic kidney disease; I25.10 Atherosclerotic heart disease of native coronary artery without angina pectoris; D63.1 Anemia in chronic kidney disease; M94.0 Chondrocostal junction syndrome [Tietze]; J44.9 Chronic obstructive pulmonary disease, unspecified; Z91.15 Patient's noncompliance with renal dialysis; Z99.2 Dependence on renal dialysis; Z95.1 Presence of aortocoronary bypass graft; Z20.822 Contact with and (suspected) exposure to COVID-19
CPT/HCPCS: 36415; 70450; 71045; 71250; 72125; 80048; 80053; 80076; 81003; 82947; 83735; 83880; 84100; 84484; 85025; 85610; 87077; 87086; 87088; 87186; 90935; 93005; 96374; 96375; 97116; 97161; 99285; G0378; J1200; J1644; J2405; J2930; J3010; Q5105; U0003

== ENCOUNTER 2021-06-01 05:02 | Emergency (ER) | payer OTHER ==
--- OUTSIDE RECORDS SUMMARY | 2021-06-01 05:18 | XMS REPORT | Continuity of Care Document ---
:1955 Author Organization [facility] t Address [address] [place] [address] Care Team Providers Name Role Phone THA [...] Date Expiration Date S ource MEDICAID MOLINA [id number] 2011 00:00:00 [facility] [id number] 2010 MEDICAID 00:00:00 Problems Condition Condition Condition Status Onset Resolution Last Treating Co mments Source Name Details Category Date Date Treatment Clinician Date Kidney Kidney Disease Active [facility] S/P [...] Chronic Disease Active [facility] kidney kidney -21 [facility] - disease, disease, 00:00: Medica l [...] [facility] rosis of rosis of 05-19 [place] 00:00: g of this Medical artery of [...] l mellitus mellitus 00 Center with with 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 y y disorder, disorder, with with [...] S t polyneurop polyneurop Janna kes - athjoe athjoe Memoria associated associated l with type with [...] d COPD d COPD 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 [facility] current current [facility] [...] 2019-03 Univ ers INGREDI ity of 00:00: [place] [facility] VANCOMYC DRUG Active Med N/V 2019-03 Univers IN INGREDI ity of 00:[facility]: [place] [facility] MORPHINE DRUG Active High Anaphylaxis 2019-03 Uni vers INGREDI ity of 00:00: [place] [facility] AMOXICIL DRUG Active Med Diarrhea 2019-03 Univer s KENZIE-POT ity of CLAVULAN 00:00: [place] ATE 00 [facility] NITROGLY DRUG Active High Anaphylaxis 2019-03 Uni vers CERIN IN ity of 5 % 00:00: [place] DEXTR[facility] TRAZODON DRUG Active Med N/V 2019-03 Univers E INGREDI ity of 00:00: [place] 00 [facility] Trazodon Drug Active Nausea And 2018-[address] e Allergy Vomiting 2-12 [facility] - 00:00: Medical 00 Center TRAZODON Allergy Active High N\\T\\V 2018-0 [facility] [...] 00 Center s Amoxicil Propensi Active Diarrhea 2017-[address] [facility] kenzie-Pot ty to 04-21 [facility] [...] 00:00: 00 MORPHINE Allergy Active High Anaphylaxis 2017-0 SL SL 04-21 00:00: 00 NITROGLY Allergy Active High N\\T\\V 2018-0 [facility] CERIN 04-21 00:00: 00 VANCOMYC Allergy Active High N\\T\\V 2018-0 [facility] IN 04-21 ANALOGUE 00:00: S 00 Vancomyc Adverse Active vomiting [facility] HCl Reaction [facility] Nitrogly Adverse Active vomiting [facility] cerin Reaction [facility] Morphine Adverse Active headache, [facility] Sulfate Reaction breathing [facility] Clindamy Adverse Active vomiting [facility] riley HCl Reaction [facility] NO KNOWN Drug Active Univers ALLERGIE Class ity of [facility] Family History Family Member Diagnosis Comments Start Date Stop Date Source Natural father COPD [facility] Natural father Cancer [facility] Natural father Hypertension [facility] Natural mother No Known Problem [facility] Natural sister Asthma [facility] Natural sister COPD [facility] Social History Social Habit Start Date Stop Date Quantity Comments Source Alcohol intake 2019-12-31 2019-12-31 Current KATHRYN Mack es - 00:00:00 00:00:00 non-drinker of Medical Ce nter alcohol (finding) Cigarettes smoked 2017-06-10 2017-06-[address] [facility] - current (pack per 00:00:00 00:00:00 Medical Center day) - Reported Cigarette 2017-06-10 2017-06-10 KATHRYN Pedro - pack-years 00:00:00 00:00:00 [facility] Tobacco use and 2017-06-10 2017-06-[address] [facility] [address] Janna kes - exposure 00:00:00 00:00:00 [facility] History of tobacco 2017-05-[address] [facility] - use 00:00:00 [facility] Sex Ass[birth year] KATHRYN Mac kes - 00:00:00 00:00:00 [facility] Smoking Status Start Date Stop Date Source Former smoker 2017-06-10 00:00:00 2017-06-10 00:00:00 [facility] Medications Ordered Filled Start Stop Current Ordering Indication Dosage Frequency Signature Comments Components Source Medication Medication Date Date Medication? Clinician (SIG) Name Name mupirocin 2019-03 Yes QD Apply [facility] (BACTROBAN) 0-03 topically Lay es - 2 % 10:49: daily. Medical ointment 00 Bryce collagenase 2019-03 Yes QD Apply [facility] (SANTYL) 0-03 topically [facility] - 250 units/g 10:49: daily. Medi marilin ointment 00 Bryce bumetanide 2019-03 Yes 2mg [id number] Take [address] [address] (BUMEX) 2 0-03 [id number] by mouth 3 [facility] - MG tablet [...] ointment 00 Center bumetanide 2019-03 Yes 2mg [id number] Take [address] (BUMEX) 2 0-03 [id number] by mouth 3 [facility] - MG tablet [...] 2 % 10:49: daily. Medical ointment 00 Bryce collagenase 2019-03 Yes QD Apply [facility] (SANTYL) 0-03 topically [facility] - 250 units/g 10:49: daily. Medi marilin ointment 00 Bryce bumetanide 2019-03 Yes 2mg [id number] Take [address] (BUMEX) 2 0-03 [id number] by mouth 3 [facility] - MG tablet [...] units/g 10:49: daily. Medi marilin ointment 00 Bryce bumetanide 2019-03 Yes 2mg [id number] Take [address] (BUMEX) 2 0-03 [id number] by mouth 3 [facility] - MG tablet [...] needed. Max Daily Amount: 4 tablets gabapentin 0 Yes Take [address] [facility] [...] Center and 300 mg at night. ferrous 2018- 2020- No 325mg Q.5D Take [address] sulfate 325 08-0917 tablet [facility] - (65 FE) MG 00:00: [...] every 8 (eight) hours Blood pressure. clopidogrel 2017- 2020- No 75mg QD Take [address] (PLAVIX) 75 07-07 tablet (75 L ukes - mg tablet 00:00: 00:00 mg total) Me dical 00 :00 by mouth Center daily. NIFEdipine 2017-0 2020- No 60mg QD Take 1 [facility] [...] [address] pratropium 06-01 puffs by Lumichael s - (COMBIVENT 00:00: 00:00 mouth via [...] - MOUTH Memoria EVERYDAY l AT BED[facility] Isosorbide Isosorbide Yes Franki TAKE [address] [facility] Mononitrate Mononitrate Jas TABLET BY [facility] - ER ER MOUTH Memoria EVERY DAY l [facility] NIFEdipine NIFEdipine Yes Franki TAKE [address] [facility] ER ER Jas TABLET BY [facility] - MOUTH Memoria EVERY DAY l [facility] BuPROPion BuPROPion Yes Franki TAKE [address] HCl HCl Jas TABLET BY [facility] - MOUTH Memoria EVERY DAY l [facility] Acetaminoph Acetaminoph Yes Franki (Schedule [facility] en-Codeine en-Codeine Jas III Drug) Shannon - #3 #3 TAKE 1 Memoria TABLET BY l MOUTH Outpati EVERY 6 ent HOURS Clinics NEEDED FOR PAIN Carvedilol Carvedilol Yes Franki TAKE [address] [facility] Jas TABLET BY [facility]ukes - MOUTH Memoria TWICE A l DAY [facility] Advair Advair Yes Franki INHALE 1 [facility] Diskus Diskus Ajs DOSE BY [facility] - MOUTH Memoria TWICE [...] cm Heart rate 2020-01-01 08:41:00 60 /min [facility] Respiratory rate 2020-01-01 08:41:00 18 /min [facility] Oxygen saturation in 2020-01-01 08:41:00 100 /min [facility] - Arterial blood by Medical Ce nter Pulse oximetry Systolic blood 2020-01-01 08:32:00 162 mm[Hg] [facility] pressure [facility] Diastolic blood 2020-01-01 08:32:00 73 mm[Hg] [facility] Body temperature 2020-01-01 07:41:00 36.56 Deanne [facility] Body weight 2019-12-30 04:28:00 78.2 kg [facility] BMI 2019-12-30 04:28:00 27.00 kg/m2 [facility] Body height 2019-12-25 21:05:00 170.2 cm [facility] Procedures Procedure Date / Time Performed Performing Clinician [facility] e REPORT OF PROCEDURE - 2020-01-05 08:40:02 Provider, Default [facility] ENDOSCOPY SCAN [facility] RHYTHM STRIP - SCAN 2020-01-05 08:31:43 Provider, Default [facility] RHYTHM STRIP - SCAN 2020-01-05 08:31:42 Provider, Default [facility] RHYTHM STRIP - SCAN 2020-01-05 08:31:40 Provider, Default [facility] CARDIAC CATH REPORT - 2020-01-05 08:31:15 Provider, [facility] CARDIAC CATH REPORT - 2020-01-05 08:31:13 Provider, [facility] POCT-GLUCOSE METER 2020-01-01 06:33:00 Pat Mohamud [facility] CBC W/PLT COUNT & AUTO 2020-01-01 05:37:00 Lily Echavarria [facility] COMPREHENSIVE METABOLIC 2020-01-01 05:37:00 Lily Echavarria [facility] POCT-GLUCOSE METER 2019-12-31 20:50:00 Pat Mohamud [facility] POCT-GLUCOSE METER 2019-12-31 18:00:00 [facility] POCT-GLUCOSE METER 2019-12-31 11:42:00 [facility] POCT-GLUCOSE METER 2019-12-31 06:29:00 [facility] CBC W/PLT COUNT & AUTO 2019-12-31 06:05:00 [place] [facility] DIFFERENTIAL [facility] COMPREHENSIVE METABOLIC 2019-12-31 06:05:00 [place]oughhouseLily [facility] MAGNESIUM 2019-12-31 06:05:00 [facility] PO[facility]UCOSE METER 2019-12-30 20:13:00 [facility] POCT-GLUCOSE METER 2019-12-30 16:26:00 [facility] SURGICALLY OBTAINED 2019-12-30 13:59:46 Pat Mohamud [facility] - CULTURE + GRAM STAIN Medical Matthew ter ANAEROBIC CULTURE 2019-12-30 13:59:46 [facility] 2019-12-30 13:54:56 [facility]AM STAIN Medical [facility] ter ANAEROBIC CULTURE 2019-12-30 13:54:56 [facility] TISSUE EXAM 2019-12-30 13:38:00 Tala Santacruz [facility] I&D,BONE FOOT 2019-12-30 13:11:00 Tala Santacruz [facility] POCT-GLUCOSE METER 2019-12-30 11:39:00 [facility] ECG 12-LEAD 2019-12-30 10:53:36 Unknown, Hl7 Doctor [facility] POCT-GLUCOSE METER 2019-12-30 05:39:00 Pat [facility]ud [facility] SARS-COV2/RT-PCR ([facility] & 2019-12-30 05:11:00 Pat Mohamud [facility] - REF LABS) [facility] CBC W/PLT COUNT & AUTO 2019-12-30 05:09:00 [place], [facility] 2019-12-30 05:09:00 Lily Echavarria [facility] POCT-GLUCOSE METER 2019-12-29 21:09:00 [facility] POCT-GLUCOSE METER 2019-12-29 11:10:00 Pat Mohamud [facility] HEMODIALYSIS INPATIENT 2019-12-29 08:12:17 Brandie Khan [facility] POCT-GLUCOSE METER 2019-12-29 06:10:00 Pat Mohamud [facility] CBC W/PLT COUNT & AUTO 2019-12-29 05:50:00 SloughhouseLily [facility] 2019-12-29 05:50:00 [facility] POCT-GLUCOSE METER 2019-12-28 20:37:00 [facility] POCT-GLUCOSE METER 2019-12-28 17:38:00 [facility] POCT-GLUCOSE METER 2019-12-28 13:12:00 [facility] POCT-GLUCOSE METER 2019-12-28 05:43:00 [facility] CBC W/PLT COUNT & AUTO 2019-12-28 04:41:00 SloughhouseChloeu [facility] METABOLIC 2019-12-28 04:41:00 SloughhouseLily [facility] ABD AO & LOWER EXT 2019-12-28 02:30:00 Sakina Tamayo [facility] - ANGIOS/ POSS [facility] POCT-GLUCOSE METER 2019-12-27 20:32:00 Pat Mohamud [facility] MR LOWER EXTREMITY 2019-12-27 16:30:00 [place] Lily [facility] - WITHOUT IV CONTRAST [facility] POCT-GLUCOSE METER 2019-12-27 14:06:00 [facility] W[facility] C[facility] + GRAM 2019-12-27 12:02:00 Annia Delgado [facility] POCT-GLUCOSE METER 2019-12-27 06:44:00 Pat Mohamud [facility] POCT-GLUCOSE METER 2019-12-27 05:49:00 Pat Mohamud [facility] CBC W/PLT COUNT & AUTO 2019-12-27 05:05:00 [place] [facility] COMPREHENSIVE METABOLIC 2019-12-27 05:05:00 [facility] 2019-12-27 00:31:18 Brandie Khan [facility] POCT-GLUCOSE METER 2019-12-26 20:51:00 Pat Mohamud [facility] TRANSFUSION SERVICE 2019-12-26 18:02:44 Provider [facility] REPORT - SCAN Scanning [facility] POCT-GLUCOSE METER 2019-12-26 16:42:00 [facility] CTA AAA AND RUNOFF 2019-12-26 15:27:00 Sakina Tamayo [facility] POCT-GLUCOSE METER 2019-12-26 11:59:00 [facility] POCT-GLUCOSE METER 2019-12-26 06:09:00 Pat Mohamud [facility] CBC W/PLT COUNT & AUTO 2019-12-26 04:36:00 [facility] COMPREHENSIVE METABOLIC 2019-12-26 04:36:00 [place] [facility] PREPARE LEUKO-REDUCED RBC 2019-12-25 23:54:00 Brandie Khan [facility] POCT-GLUCOSE METER 2019-12-25 20:51:00 [facility] TRANSFUSION SERVICE 2019-12-25 18:04:44 Provider [facility] REPORT - SCAN Scanning [facility] POCT-GLUCOSE METER 2019-12-25 17:01:00 [facility] POCT-GLUCOSE METER 2019-12-25 11:25:00 Pat Mohamud [facility] CBC W/PLT COUNT & AUTO 2019-12-25 05:59:00 Lily Echavarria [facility] DIFFERENTIAL [facility] COMPREHENSIVE METABOLIC 2019-12-25 05:59:00 Lily Echavarria [facility] POCT-GLUCOSE METER 2019-12-25 05:58:00 Pat Mohamud [facility] TRANSFUSE LEUKO-REDUCED 2019-12-24 19:06:17 [facility] RED BLOOD CELLS [facility] POCT-GLUCOSE METER 2019-12-24 16:15:00 [facility] ABORH, MANUAL 2019-12-24 08:25:00 Jovita Griffith [facility] POCT-GLUCOSE METER 2019-12-24 06:11:00 Pat Mohamud [facility] TYPE AND SCREEN, 2019-12-24 06:08:00 AlduBrandie rahman [facility] es - AUTOMATED [facility] CBC W/PLT COUNT & AUTO 2019-12-24 05:51:00 Lily Echavarria [facility] METABOLIC 2019-12-24 05:51:00 Lily Echavarria [facility] POCT-GLUCOSE METER 2019-12-23 21:23:00 Pat Mohamud [facility] POCT-GLUCOSE METER 2019-12-23 16:42:00 Pat Mohamud [facility] MR LOWER EXTREMITY JOINT 2019-12-23 15:34:00 Tala Santacruz [facility] - ONLY WITHOUT IV CONTRAST [facility] LEFT MR BRAIN WITHOUT IV 2019-12-23 15:34:00 Lily Echavarria [facility] CONTRAST [facility] POCT-GLUCOSE METER 2019-12-23 11:16:00 Pat Mohamud [facility] ARTERIAL DOPPLER LEGS 2019-12-23 09:38:00 Tala Santacruz Maggy [facility] AMMONIA 2019-12-23 04:05:00 CarrascoMariela taylor [facility] CBC W/PLT COUNT & AUTO 2019-12-23 04:00:00 JerichoLily [facility] DIFFERENTIAL [facility] COMPREHENSIVE METABOLIC 2019-12-23 04:00:00 [place]ily [facility] SARS-COV2/RT-PCR ([facility] & 2019-12-23 03:59:00 Pat Mohamud [facility] POCT-GLUCOSE METER 2019-12-22 20:34:00 [facility] POCT-GLUCOSE METER 2019-12-22 16:43:00 Pat Mohamud [facility] POCT-GLUCOSE METER 2019-12-22 11:31:00 Pat Mohamud [facility] POCT-GLUCOSE METER 2019-12-22 06:30:00 Pat Mohamud [facility] CBC W/PLT COUNT & AUTO 2019-12-22 05:14:00 SloughhouseLily [facility] METABOLIC 2019-12-22 05:14:00 SloughhouseLily [facility] POCT-GLUCOSE METER 2019-12-21 20:26:00 [facility] POCT-GLUCOSE METER 2019-12-21 17:22:00 [facility] POCT-GLUCOSE METER 2019-12-21 12:35:00 [facility] POCT-GLUCOSE METER 2019-12-21 07:20:00 [facility] POCT-GLUCOSE METER 2019-12-21 05:52:00 [facility] C-REACTIVE PROTEIN 2019-12-21 04:39:00 Annia Delgado [facility] CBC W/PLT COUNT & AUTO 2019-12-21 04:39:00 [facility] COMPREHENSIVE METABOLIC 2019-12-21 04:39:00 [facility] US ABDOMEN COMPLETE 2019-12-20 21:17:00 April [facility] POCT-GLUCOSE METER 2019-12-20 20:23:00 [facility] POCT-GLUCOSE METER 2019-12-20 17:31:[address] [facility] [address] BRAIN WITHOUT IV 2019-12-20 16:04:00 [facility] CONTRAST [facility] AMMONIA 2019-12-20 14:41:00 [facility] BLOOD GAS, ARTERIAL 2019-12-20 14:28:00 [facility] XR FOOT 2 VIEWS RIGHT 2019-12-20 11:55:00 Annia Delgado [facility] POCT-GLUCOSE METER 2019-12-20 11:28:00 [facility] POCT-GLUCOSE METER 2019-12-20 06:20:00 [facility] OCCULT BLOOD, STOOL 2019-12-20 06:19:00 [facility] IRON, TIBC, % SAT. 2019-12-20 05:06:00 [facility] B12 AND FOLATE 2019-12-20 05:06:00 [facility] RETICULOCYTE COUNT 2019-12-20 05:06:00 [facility] HAPTOGLOBIN 2019-12-20 05:06:00 [facility] TSH/FREE T4 IF INDICATED 2019-12-20 05:06:00 [facility] FERRITIN 2019-12-20 05:06:00 Sakina Chen [facility] ANTI-NUCLEAR ANTIBODY 2019-12-20 05:06:00 Sakina Chen [facility] KAPPA / LAMBDA LIGHT 2019-12-20 05:06:00 Sakina Chen [facility] PROTEIN ELECTROPHORESIS, 2019-12-20 05:06:[address] [facility] PERIPHERAL BLOOD SMEAR - 2019-12-20 05:06:00 Sakina Chen l [facility] PATHOLOGIST REVIEW Medical [facility] CBC W/PLT COUNT & AUTO 2019-12-20 05:06:00 Marcial Chapa [facility] COMPREHENSIVE METABOLIC 2019-12-20 05:06:00 Marcial Chapa [facility] T4, FREE 2019-12-20 05:06:00 April Sakinara Carrillo [facility] ROGER TITER AND PATTERN 2019-12-20 05:06:00 Sakina Chen [facility] PT/APTT 2019-12-20 05:06:00 Sakina Chen [facility] FIBRINOGEN 2019-12-20 05:06:00 April Sakina [facility] D-DIMER 2019-12-20 05:06:00 April Sakinara Carrillo [facility] POCT-GLUCOSE METER 2019-12-19 20:35:00 Pat Mohamud [facility] POCT-GLUCOSE METER 2019-12-19 16:06:00 Pat Mohamud [facility] HEMODIALYSIS INPATIENT 2019-12-19 16:02:09 Sharri Fernando [facility] CBC W/PLT COUNT & AUTO 2019-12-19 05:35:00 Marcial Chapa [facility] BASIC METABOLIC PANEL (7) 2019-12-19 05:35:00 Marcial Chapa [facility] LACTATE DEHYDROGENASE 2019-12-19 05:35:00 Sakina Chen [facility] POCT-GLUCOSE METER 2019-12-19 05:24:00 [facility] POCT-GLUCOSE METER 2019-12-18 21:35:00 [facility] POCT-GLUCOSE METER 2019-12-18 16:05:00 [facility] POCT-GLUCOSE METER 2019-12-18 07:45:00 [facility] POCT-GLUCOSE METER 2019-12-18 06:14:00 [facility] POCT-GLUCOSE METER 2019-12-17 21:44:00 [facility] POCT-GLUCOSE METER 2019-12-17 17:52:00 [facility] POCT-GLUCOSE METER 2019-12-17 12:22:00 [facility] HEMODIALYSIS INPATIENT 2019-12-17 10:33:08 [facility] 2019-12-17 06:18:00 [facility] CBC W/PLT COUNT & AUTO 2019-12-17 04:14:00 Marcial Chapa [facility] COMPREHENSIVE METABOLIC 2019-12-17 04:13:00 Marcial Chapa [facility] POCT-GLUCOSE METER 2019-12-16 20:55:00 [facility] POCT-GLUCOSE METER 2019-12-16 18:24:00 [facility] HEPATITIS B SURFACE 2019-12-16 16:02:00 Aldulacey [facility] ANTIBODY [facility] HEPATITIS B SURFACE 2019-12-16 16:02:00 Aldulacey Ranken [facility] ANTIGEN [facility] HEPATITIS C ANTIBODY 2019-12-16 16:02:00 [facility] B CORE 2019-12-16 16:02:00 [facility], TOTAL [facility] POCT-GLUCOSE METER 2019-12-16 14:47:00 Pat Mohamud [facility] IR TUNNELED CATHETER 2019-12-16 14:26:00 Sharri Fernando [facility] INSERTION [facility] HEMODIALYSIS INPATIENT 2019-12-16 12:37:39 [facility] POCT-GLUCOSE METER 2019-12-16 11:01:00 [facility] XR CHEST 1 VIEW PORTABLE 2019-12-16 05:55:00 Marcial Chapa ra [facility] / BEDSIDE [facility] POCT-GLUCOSE METER 2019-12-16 05:51:00 Pat Mohamud [facility] CBC W/PLT COUNT & AUTO 2019-12-16 04:08:00 Marcial Cahpa [facility] BASIC METABOLIC PANEL (7) 2019-12-16 04:08:00 Marcial Chapa [facility] PROTHROMBIN TIME/INR 2019-12-16 04:08:00 Marcial Chapa [facility] SARS-COV2/RT-PCR ([facility] & 2019-12-16 01:45:00 Pat Mohamud [facility] - REF LABS) [facility] Plan of Care Planned Activity Planned Date Details Comments Source Future Scheduled 2020-12-[address] [facility] - Test 00:00:00 examination [facility] (regime/therapy) [code = 570692132] Future Scheduled 2020-12-[address] [facility] - Test 00:00:00 examination [facility] (regime/therapy) [code = 076141802] Future Scheduled 2020-12-[address] [facility] - Test 00:00:00 [facility] (regime/therapy) [code = 839685666] Future Scheduled 2020-12-[address] [facility] - Test 00:00:00 examination [facility] (regime/therapy) [code = 428925379] Future Scheduled 2020-12-[address] [facility] - Test 00:00:00 malignant neoplasm of [facility] colon (procedure) [code = 726912339] Future Scheduled 2020-12-[address] [facility] - Test 00:00:00 malignant neoplasm of [facility] colon (procedure) [code = 979394458] Future Scheduled 2020-12-[address] [facility] - Test 00:00:00 malignant neoplasm of [facility] colon (procedure) [code = 523504178] Future Scheduled 2020-12-[address] [facility] - Test 00:00:00 malignant neoplasm of [facility] colon (procedure) [code = 638127459] Future Scheduled 2020-11-29 INFLUENZA VACCINE (#1) C [...] 00:00:00 (1 of 1 - Medical Center [id number] PCV13) [code = PNEUMOCOCCAL 65+ YRS (1 of 1 - [id number] PCV13)] Future Scheduled 2020 PNEUMOCOCCAL 65+ YRS [facility] - Test 00:00:00 (1 of 1 - Medical Center [id number] PCV13) [code = PNEUMOCOCCAL 65+ YRS (1 of 1 - [id number] PCV13)] Future Scheduled 2020 PNEUMOCOCCAL 65+ YRS [facility] - Test 00:00:00 (1 of 1 - Medical Center [id number] PCV13) [code = PNEUMOCOCCAL 65+ YRS (1 of 1 - [id number]_Coglzjn PCV13)] Future Scheduled 2020 PNEUMOCOCCAL 65+ YRS [facility] - Test 00:00:00 (1 of 1 - Medical Center [id number] PCV13) [code = PNEUMOCOCCAL 65+ YRS (1 of 1 - [id number] PCV13)] Future Scheduled 2017-11-[address] [facility] (procedure[facility] [code = 87958362] Future Scheduled 2017-11-[address] [facility]procedure[facility] [code = 73807666] Future Scheduled 2017-11-[address] [facility] (procedure[facility] [code = 02393309] Future Scheduled 2017-11-[address] [facility] (procedure[facility] [code = 33791897] Future Scheduled 2005 SHINGLES VACCINES (1 [facility] - Test 00:00:00 (procedure) [code = [facility] 09168991] Future Scheduled [address] [facility] 00:00:00 (procedure) [code = [facility] 68097009] Future Scheduled [address] [facility] 00:00:00 (procedure) [code = [facility] 41589872] Future Scheduled [address] [facility] 00:00:00 (procedure) [code = [facility] 72127771] Future Scheduled [address] [facility] cervix (procedure) [code = 726836474] Future Scheduled [address] [facility] 00:[facility]:00 [facility] cervix (procedure) [code = 242972009] Future Scheduled [address] [facility] 00:[facility]00 [facility] cervix (procedure) [code = 247447441] Future Scheduled [address] [facility] 00:[facility] cervix (procedure) [code = 838997847] Future Scheduled 1974 DTAP/TDAP/TD [facility]ACCINES [facility] 00:[facility]:00 (1 - Tdap) [code = Medical enter DTAP/TDAP/TD VACCINES (1 - Tdap)] Future [...] 00:00:00 protein (procedure) [facility] [code = 982529059] Future Scheduled [address] EYE EXAM [facility] 00:00:00 [code = [facility] EXAM] Future Scheduled 1965 Urine screening for [facility] 00:00:00 protein (procedure) [facility] [code = 981201641] Future Scheduled [address]ABETIC EYE EXAM [facility] 00:00:00 [code = [facility]YE [facility] EXAM] Future Scheduled 1965 Urine screening for [facility] 00:00:00 protein (procedure) [facility] [code = 497017539] Future Scheduled 1965 DIABETIC EYE EXAM [facility] 00:00:00 [code = [facility]IC EYE [facility] EXAM] Future Scheduled 1965 Urine screening for [facility] 00:00:00 protein (procedure) [facility] [code = 241757655] Future Scheduled [address] [facility] 00:00:00 [facility] breast (procedure) [code = 777647562] Future Scheduled [address] [facility] 00:00:00 [facility] breast (procedure) [code = 916536621] Future Scheduled [address] [facility] 00:00:00 [facility] breast (procedure) [code = 650054981] Future Scheduled [address] [facility] 00:00:00 [facility] breast (procedure) [code = 891337542] Encounters Start End Encounter Admission Attending Care Care Encounter Source Date/Time Date/Time Type Type Clinicians Facility Department ID 2019-12-16 Inpatient PAT THURSTON [facility] Nephrology [id number] [facility] 00:14:00 2020-03-28 2020-03-29 Emergency Babatunde Clay [facility] [id number] 15:50:00 20:31:00 Maureen Terrazas [id number] [place] [id number] [place] [id number] 2020-03-28 2020-03-28 Emergency X BABATUNDE [facility] ERT [id number] [facility] 15:50:00 15:50:00 CLAY watson [facility] 2019-12-16 2020-01-01 Hospital UR Pat Mohamud [facility] [id number] 00:14[facility]00 10:00:00 Encounter Lisa Grady [facility] 2019-12-30 2019-12-30 Anesthesia Rhiannon Underwood [facility] [id number] [facility] 13:11:00 14:14:00 Event Jamin Kearns [facility] 2019-12-30 2019-12-30 Surgery Neeta, [facility] [id number] 12:30:00 13:19:00 Tala [facility] 2019-12-28 2019-12-28 Surgery Belkis, [facility] [id number] 12:00:00 12:54:00 Sakina Higgins [facility] 2019-12-17 2019-12-17 Travel [facility] [id number] [facility] 00[facility]00 [facility] 2019-12-16 2019-12-16 Orders Monica, [facility] [id number] 00:00:00 00:00:00 Only [facility] 2018-11-17 2018-11-17 [facility] [id number] 11:30:00 11:30:00 [facility] 2018-10-06 2018-10-06 [facility] [id number] 16:14:00 16:14:00 [facility] 2018-09-28 2018-09-28 [facility] [id number] 10:30:00 10:30:00 [facility] 2017-09-22 2017-09-22 [facility] [id number] [facility] 00:00:00 00:00:00 BIJI Results Test Description Test Time Test Comments Results Result Comments Source ANAEROBIC CULTURE 2020-01-04 10:26:00 Test Item Value Reference Range Interpretation Comme nts CULTURE (BEAKER) (test code = 1095) No anaerobes isolated Tissue [id number] 10:21:00 Test Item Value Reference Range Interpretation Comments Case Report (test code Surgical Pathology = 104) Report Case: [id number] Authorizing Provider: Tala Santacruz DPM Collected: 12/30/2019 01:38 PM Ordering Location: [address] Med/Surg Received: 12/31/2019 06:52 AM Pathologist: Jovita Griffith MD Specimens: A) - Soft Tissue, Other, left 5th proximal phalanx B) - Metatarsal, Left, left 5th metatarsal DIAGNOSIS (test code = [id number] 3220) FuZzEwMzNcZnRuYmpcdWMx ULkqxnOzAAswn1QgJ7EnSg AwMFxhbnNpXGRlZmxhbmcx QOHfXIA9bnPdFSJaPJldSJ TeWQzxWx6tlPUroEhoHfWb JDWeu7gzkuRSuooksOv1h9 urFBDxFaV2dTWfXWtwK0bn qsUsbMKfIGYzTEq9tD60MN XipZ6mlJBqLWuqktNvSoO8 SEbhTXYzWaQ6VJZyzXNkJN OtA2buJTZuDDseJZTlTHvf lOXwCIJ4pVygx5Y3tTLwxC XybYpsPnGiItDcCTIOx2Ai FPe9fIstD5GdJJSmBmN1gU QgUGFyYWdyYXBoIEZvbnQ7 aZ29OVlqkbC7zUUrs5Mqn0 0ec656aX6ocXVbFTC9ERDw OZSolEDbOJUiSMT2LWBbiZ EqA2a8AjNiaGRmD5D7KbCe kCUcY4H8CgSudPKcH3B6Uy JdrBCdVKWxvRLfCc9ggDEo dPMydj4ukh00OEP1e7OlzS hbAVP2NKB4GnYiKb5yzDYn XSAaBT0uFbEtlGAiKFVpco 14qZbfTYbfmwTeuH6xVcJq AWIkgOFuUFFfGI3opWOgGD DlyN2bdxqzZWGnDuCwwyvy LYHdsPabywPoWr8ypTjsVE L4ZFmoA7nyzI2tIbB8PSqr H1qqoB2zMGm5EFsczOC1GS CgjJ3mRB7ctvaqb5psFrDa FJ8hqntur2tzRiRtNI2bid f6p9emBlMgGQ2idthbo5fs NzIwXGhlYWRlcnkwXGZvb3 DzyijvRWJhs1ObZ0GglBda L74xoZtoC29qXYHfzYzsbP 1vtJegeE3nRgBeKoYlIMzj bFxwbGFpblxmMVxmczIwXG nzwxecUAXkZDyyV7tqEjSu OWDybTcyYBfnf2HaVHLzQT HzFqNxMI2tAx6NMXqbUOIB MDXBDTPTZETEBd1AFJ4DUA JXRPZFBJ6HMJVZTI4XJ0r3 YCCvxeBoNVCbOVTRJF1tW2 rQOBTAFlFLGueSMA5SUAET UlRJTEFHRSBXSVRIIFNVUl PAWE6JQR0OYOJJEFCIWSAR RCBDSFJPTklDIElORkxBTU 1BVElPTlxwYXJccGFyIEIu IEJPTkUsIExFRlQgRklGVE ggTUVUQVRBUlNBTCwgQklP UFNZOlxwYXIgICAgLSBBQ1 MPLRZZT1RLR34YMZjFMKkZ IFxwYXIgICAgLSBTRVBBUk OQCXXJAsMBLRMSLIRqZ9Lo BteSFc8KE96EWZKZKFIZAG VIH5QUHXFQWLMUZKBQQ3PY Z4TnKS8HA0EQC8zPBHJHSF BHUkFOVUxBVElPTiBUSVNT YPNjCv6CLKCLXB7NVXKpsw 73DEI0HeCes5G9PRC0WYBr LETto2ksBTPrgGKfLwTkLj NcZnRuYmpcdWMxXGRlZmYw m9mqq589ySZfv1toJHZsVb O1aHObZQFvmWCeM617HQCw BEcac2cne7EiLKUprMVhr7 Z3KPUDbipymYr2kNnpM20n o0M0PfasO4dhMVNrSHUrS9 JgQG2aLCOxZgt5YFD5OZI2 ENFaRSVmS7GfBV7iHFFqcR OwNIn7l4kxpZagEWBnTZN4 s7iaKRvnfjFhQT4ctq8ipN r1e2fsggTrSXZcJDWnfYQH FHHaJ4JppWyeYp3hxQz8mE ajZqbaIAK2Tcv2HJ8jjc13 oqh0yXltTSClwklnRcI1OG qdEIPlvlxjKOu5QXzxQZNk iSA1DVQnwDYnF7KwEQHjFB 9tatd0DVS4AWhrDFDkBjD7 NDBcaGVhZGVyeTcyMFxmb2 72UOV2MsIoJS9kP3Rvi9Q7 tW7ktBAaWKVjvCFeVuNbLF Lmin5utYIdBOjau6WgQGE1 tpJ1hHGtpOQvTZLsUqV0DL hqGA4usv44BIMoTYA0og8t bGNccGdicmRyaGVhZFxwZ2 NkZXOnf602JBBrY2BdFZMi q6Q8fkCpVtLaBPCyoAW0ss F0FZZpIB9sidicy2avLVtp MCicGAHslaX9asO0GCLfzL GuO6CutB4hIURaJZ0pqxbe y7yePJQ8VGwvQPEyJWD5Sn EpHQXgj3Xyljb8AyPjy2Bu dUGbMGkcC39ne628POPneo GqU5ueqUVoaplsaTMsddzj BTnqmaS6FTGeKVjesdvrPZ KuMEcqA6duVfGkDEYoiGhd AZlva1TfTNVkEYHcGoZyaA NlEZPrAjf2EELeqHNoNENv KfJvO3bdqvbxFfTZJOAtm9 wlS9gyjDHWmYMgQ7AzBXhq fwDnJJhtZDxuBYK9MYO3Zf 21YfB0NZKkyx11 CPT Code(s) (test code b3fljIBqONBmjMHtNdHiQN = 3357) KmKUJbz4beJUVhsPIoAjVt MzNcZnRuYmpcdWMxXGRlZm Ofs7dfu708wCBel4jxRDPk TjG9dXQlVCDbjKSzC803k5 ocp1aqvaJsgZI6MWDxBCF1 IQenckIrjrV4PYmpvGXzUu A3SQsttoXyIAwxpnRkzbZz Chu7BZDaI510XUL7mTxmv8 dzGCM6UCUtVQKbQqKvHr4t gMYmH783AWPmHMUGJGJndJ b4ZVBlqzZfkgQwyNXRl001 R168s2dpVNHlbpMvlAzNih nah9cbJ241YSLmkRImkpBk JyZzKVQclQTwlSP9FWLaRP 4twnkhArXfIM4lskzeFsOa HQ7gkiz6TaFoDS1zrslnVq HhPKghFJXeimhhFPKxa7Ka vcfoZF3nU8Gal3P3hI6kdY YfQWPmdBIyReEgARJyxo8r yZQrZUndy2YnHTR9gyO4yP ZgbVOhYCSyEH09Ycsbh3Yi EjiuZYY1YVSngsCjp2Apa4 deGuQabnHlU1vqG3UsUSBh PMZtEQPkQqFtpgExm3Lec2 WhkLHoaMe4c0jzYXPcRGUo fRixa4ijOSU7ERPtS0N4hM Zaq5koDDueEYDyxGZ2vhaz ZMbuZVTsanT9gbhvJYcgLD TofMO8kpqrKPxiGPLtIsN2 xwsuBKljJHWxVKG7SFnfq1 73RFE5IYtrDkuyMDxgHAEr bmNvbnRccGduZGVjXHBsYW luXHBsYWluXGYwXGZzMjRc lAftfMoaqD9sKoCzKpIgVP vcGO7sTLDzO1comHMdWMOz HYXhD3qeGjHiuV3tyCfsQW iwqwHrWU5MB8S8SNQtygJ8 KFLmUiM0FqmlAHLqQAgdZF EgeDJccGFyfQ== CLINICAL HISTORY (test k9caaLIxUVGomHJgAbWbOG code = 3357) NuTFRas5vuOMHomJQcSfQz MzNcZnRuYmpcdWMxXGRlZm Tyh7epb419gSQhj6vcRXMv DqE9bDHeHBYwlMWgQ745q0 uni6weubFwlGX8POEdFYC8 VAcrqsXbwiF7EIfflKEuPs J1LVbbqvCzGHzzbeWpsuLg Xej2JWTxT619BOO5pQxee2 lvIMD0EEYyDETuGiUrMd9k sFYaT081BXDvBXEBTXQtpG q8MTJvjxOkqdVxxTUHn426 N524o5jrAVPzmvWlrQcGwh bey4azJ025HIBkcJOhxgCa IlNgGYEclNSalPS8TDCnYM 2npqznGxQiID1ypakyWiAx QV1kkid0JgOwDM3jntumMt LtUWolZTRfqjmwEBOml5Gj izuxFE9bK8Hyc0Y1pS1xhG TkNVWqpLLwMgDfCYHpdh8c nTJpWZlsd8RlIYF0umA8uP DvnUNrZVHtPD87Pxsso5Ws YpbuEGC8KZAqtqDvc2Kds4 vtHhLsqzAqQ0hcL2DqOLMl JZOtWIZgOfJcgyBdo5Qfa3 SrbMJqgEe6v9qgAHViJYGr hZxuq8krOCD1JLJfB7W9rW Fas6ylIDzrKTRgjPP1riuw GRgqLOQagpY3wbsqLOvxFW MthHT9mlusWMbsWLFuQsV3 feqrMCyhIXLpXHZ3NKqxo9 03EAT2YGrhLcqqIZprBHPq bmNvbnRccGduZGVjXHBsYW luXHBsYWluXGYwXGZzMjRc rWnaxUlypL1qUzDjPsQrNE zrKE3yVYRbT8vayYDiGNQj FSNrQ6nnNhEfyF1xdUvgNY ppglXbNZ7pyODriPbykKv4 iMQba5SfuVPnrBK1nBahnQ M2EWAbjbYnkSxsmFuqCICx u3OkNrmwTMKffpBfTIVcHK RccGFyfQ== SPECIMEN SOURCE (test s6pbsJJkHVGmsHXpIsGlUA code = 3377) IuVGWeq4ymSCJwpYDaJcVm MzNcZnRuYmpcdWMxXGRlZm Acb5eps439zOEqx4jyCFDs KhS5rEQoTXZlsEGvP926a6 cwy0tetgZsdZY8YNXwXER0 XAdehcFbvsK9CQizfTLjAp C6ELxkxfSyLEnqbtUncmLq Gax7QNHlC349XWD7hJuep6 haIJW9BUZoINNmEbJlRo3h lFXsN107JCVjBNYLMOQnoS s6TSRbymAzypTzeIAMf992 F997m9lhTLZevqNdjVvUbx dza5bpL342SOIdxOZbhrJc KxVjCHPqpQHfrQO6EKZsYX 5vzkdrOyMjMV5fnbjeBzSk AU8eqgr9NiLsHZ4wejfaJp IdEGjhHXRxpexgLKXsp3Em duzlES8dW7Myq3N9cL8gyR ZkBPAgcZNnQkUdYXNkaw0q vLDlGWijc8KhNBY9qcO6bL IcrSPdEZRhXG24Ebygd5Ai NxzpORN3RLHwvpYjt1Djd2 fpQiZsrmBsG4tcH0QoKDVz YITgQIQtXkOlynBmp4Rvu9 SquJPpsFj4z9abYQHzTLOy cTqvf2ehNTX7PDGnJ8H3dN Wzc8epAUgoTIVkbYY0dpqc KNhtEJZbvxD7twpjRQeaNP XmbDA5rqolUFjsOQNsAtO8 jkhxSElsIROoUCB0AIbpq2 65ROV9AQvaNbxhFNhlTEMn bmNvbnRccGduZGVjXHBsYW luXHBsYWluXGYwXGZzMjRc cEpysJrepK5eQrUtWtFwED hpZV2aWGSkN7cqtSJvCPWl QYWkS6eeRrCllN4icYeoMP xmczIwIEEuIExlZnQgNXRo KYYnq0ymuVOeBPNaYPrzhj skXBXuHFjiYoKjMZOjKK4f nFD3KJUwDTgpCEHvon2= GROSS DESCRIPTION (test w1tuuBCfYKXtfUThYnVkKM code = 3366) GzBVVxl9ydUEKzuCBaZcCp MzNcZnRuYmpcdWMxXGRlZm Whv3bas624pATyo7idHLTg FhV7oZEhWWBkpDZmZ149HG WuLDigk3xre4UhPGMozUMj d7I6KKGQtcqxqAt2tNslE0 5cp2G9MmlfD3zyYTYcKNRo M3ArOW4mMKPeTdh5AHG8PT Z5UTTnHIKaJ9TzKV3jOQBl wGCcPTz0a4dkiFtzHNTuXU M5i6fmQEzbukQsTK5fhe2y eQr2b2pnziCmBLLkJUBpyW SLYKVeN3OayFytTp3jnGi3 zYvfYothXKL8Cpj8UR6vkb 00gmo4cLofRAMpvzmcAeI9 FQglWVFjwwcgZFb9ZMkpRE JnbDcyMFxtYXJncjcyMFxt YXJndDcyMFxtYXJnYjcyMF fpAKDpCEY2JPtwv323EZX4 WOebd9blv9pueESmIye0FA ZfJdGeCvpyKPfjm0Orz8xu JEHhii7yHKW8oFQmnUvwo9 E7gYJdMUFsrKWlzpIiPXVd PdJ6EXjpKY2wwl90TPImBM J9dl2exECvtBxwxvJdxSIc AUryY3IqXROta649ANFjY7 GdAUBdy8X0vzQzPjDaELWz eXV1syF8BFHuHJs3sVIguy E3rnTtdIBsM8pdsD63IfFc gVHqL0RxdU26YaHtzSBuW6 RlmO24QhJadDBaU6TchB86 EwBtxUYbCRYtxYQhLu6hsE DprHEeh6IpfEZqRSyuA29t t186FBIwjbZsX3xspTLsxj eqiUWopqngROiyfrV0GERd XHBsYWluXGYwXGZzMjBcbG FuZzEwMzNcaGljaFxmMFxk SnCfJEUcXLupD9lpHzIuMb SeRYIUdLAgkN4dejQWFShn OZRpZ8AsmySzLLntSSPypN J9tHQvXBkxOtMhQKRxh5o1 kIU5dHBadLZ6jLQyqRknOR 1ewXZgRS5lMB5oWCenNOwx qiTgf6KhOP94kYOhbpEdvg QgZGVzaWduYXRlZCBhcyAi m09rrMQ8pVBwgACgVE43nL ZeXmqwI55vt2ssgGEqt0My z2oxvXOahGCdnY56EPSiil HePlPfT53qrcJqJN1fPTN9 cmluZyAwLjcgeCAwLjMgeC PfUrBxK85vRXAvWJBwuYSm kP3plrXwheZglKUssKD6LW DdZR92gIMdpTxxfB38wnRM VILtnoBdnP14nfYwGPUstH Awl5a3iKvkmm1jdRKxUWDw lbCEvNDebQ2wfeIHBJluQF IgG9LodsZhLLfhWPAmrAN6 dJUwMWnnMcYtDAGyc2z6hQ V4zRObiZF0cHNsmHpnVQ9b vYDfJV0dQL6lQYdfNEsarm Vux9UkNJ75iWWkccFemjKl ZGVzaWduYXRlZCBhcyAibW A3PYHgspJoiUXlVVG1Skqy T22cy9xqkZCzu2WhDz21va IoVDHzSqZaw23leBkwf3Ee YNPnNOWae53dJBOmAAqhSE 51gpRlLPUpcTHbqxgbNs3x GHsrDZ31OBreCN02LUJqZS guTZIvC0KcQ4Y8RO8qdXyf IHNwZWNpbWVuIGlzIGVudG zoICl8FYfcsADxjtnlKIjw czIwXGxhbmcxMDMzXGhpY2 veCtEzGPOxjMnbHCzil3Zj WVZsEXJtLmQrBdWbDW1jNT vrlQ8vTGOuYAwvj72vdSMh l02uAAGjWFapWMUjXLJjLh BcbGFuZzEwMzNcaGljaFxm IYsiWoZqBIKmEDqnZ4mwGz BcZnMyMCAgTUcvZXdccGFy fQ== MICROSCOPIC DESCRIPTION j6yzdOQmQNEeyOPlVkQiHR (test code = 3371) JrOPFuy4hiHDHdlBUrEqYu MzNcZnRuYmpcdWMxXGRlZm Waz0lkd458fQPfg3ihQEMi NyC1dJNhYQPlmDKxI728e9 gxk7fqbhNgrMS5HKOzMKQ0 YNuyqtOadwK3MOdclMSdMw H2NCgtbhJsPZjtxwAdtxIa Mwt1MYVoX711TUR3nVpgo0 ujTWB5KHDpTZBjFwRqRf5u zSSoP382PVYmFEWFGIGsdQ d0TMOcddDxrkYezVLPg419 H173c3irQFRalxSfnTiNzt wwy3etJ526ZNYumLAtyoJe AkDcYRIsgONoqRF0FGPyVY 3axvyaBrCqGN0mryqwVnOk XB0xtuh9BiJsCI7fejdvYm JsQAobHQFlmswoXMHsm4Dj nxhbZE2xG6Mwz9G2fA8cqI GuKBHuzDToYhCsMVYkul0y rKTpLEmzi4IqZRA5wiK6bP DwhTFiHGRwPG08Oftxf8Ao DvjbDEL8ONQajcWhe2Sed1 fmPtPcygTzT1rtA0XaFFUo HDNyBAZtXiWhibAzr4Uwk0 CmtYQpaIx2s3ctGOZiRWWz iPasv1tuQNJ2XNGhZ7C5dR Nhp0dhYUkoWXVzwEU5ykng MNblUWUfujA0llaeDRcvVI OetLU8jnxwKYejCNOjGfU7 uieuXRlcVQKaBQP7RJhdi8 57WNM8BDszNqxaAIgjRNXh bmNvbnRccGduZGVjXHBsYW luXHBsYWluXGYwXGZzMjRc uXtqyPzxdW9wXyTlWcVnGP ndCG7bCMZaU2czgBUpVIPw HYDxP2szPwKffN3duZxbLY tigoBfJBDxOi1gYBWtQc5r bWVkLlxwYXJ9 Gross assessment was [facility] performed at (test code [facility], Department = 2777) of Pathology, [address] [place] [id number], Technical component was [facility] performed at (test code [facility], = 2778) Department of Pathology, [address] [place] [id number], Professional component [facility] was performed at ([facility], Department code = 2779) of Pathology, [address] [place] [address], [facility] [id number] 10:21:00 Test Item Value Reference Range Interpretation Comments Case Report (test code Surgical Pathology = 104) Report Case: [id number] Authorizing Provider: Tala Santacruz DPM Collected: 12/30/2019 01:38 PM Ordering Location: [address] Med/Surg Received: 12/31/2019 06:52 AM Pathologist: Jovita Griffith MD Specimens: A) - Soft Tissue, Other, left 5th proximal phalanx B) - Metatarsal, Left, left 5th metatarsal DIAGNOSIS (test code = [id number] 3220) FuZzEwMzNcZnRuYmpcdWMx EOjddxOsJZpga7ShA8QaXr AwMFxhbnNpXGRlZmxhbmcx DTXwMZN8txLqBGEoMOwzWY DdECimHc8dbXTvjJxrSsTq TKRfa0wavwBQyjmwtJc7m3 mmUZIdRtD2qVXjWRopP1tm noWdaFNjBCVrPAn6iB95FU YxgL2gbJPuIUfkwaSwWaG9 XSguDKCqMfD9ILWldAKcIZ DwF9ulMUVvDXxrOYAmQZlw mZFaNJG0lCohr0G3bKUfxG ScmOnkMvHlUnCgUWEUu7Qb GQo4xDuvY5EmYADfOaX4xJ QgUGFyYWdyYXBoIEZvbnQ7 nD42XKejgqW2qQBvx2Pzj1 9gu010aZ9tcKMyDAB0MGCi CSEftEIpGIJeXHM4TRBzdM MmP0f0HeIaqBQmQ7Z4LfDe jSKcP0I0VyPipDJbQ4F4Wa WviUXnBINxyMHsHb4aeDAl nCGgyz1dxq23VEP6x0YmmS vwKDK8ANB1FeWdGu8jbRQy DZZsVD7iElYrfQXmXBDpsr 63hJvwNXkafwYalZ2xGnPr SZLnwWVsCOHcLH2qnGNtPE EiqZ7icmlaDAJoSiPysagm CYVtiCpzilXcJt4wfVmdWG X2SDnlB1zxvM9xPxJ9YAhu Y5ycpY2sWJl3BSduyPA9VJ VozU1sSR5jmegjz3mmTdJl PH7sggjiy9gwBvRfYQ4oaa o2w0yxSrPaKU6cazlfa3ip NzIwXGhlYWRlcnkwXGZvb3 EnpgtmYPMqj0KfL9MiwVwj I33sqGtxI03sOATxfCwzhL 6xnDhowR6iUfTgAtPnUXsu bFxwbGFpblxmMVxmczIwXG panhaaZBLeKPjfB7msJhRd JHUfnCjgZIcwk9JlXQXoSD CsJvNuSC7mZo6KXYukGKZX VOIYFNXLFZKYTw0FKC2ORO CSBZLZCK3IYJTAFC8SC0l3 OTOeqrFoHCQlDVVXWZ8oX2 aYSZKDGoCVRalUVW1LHIMO UlRJTEFHRSBXSVRIIFNVUl ZIMQ1QGW2KNHDHRNTZNRKD RCBDSFJPTklDIElORkxBTU 1BVElPTlxwYXJccGFyIEIu IEJPTkUsIExFRlQgRklGVE ggTUVUQVRBUlNBTCwgQklP UFNZOlxwYXIgICAgLSBBQ1 BAHLUMQ4MAU43FIGkSYAqD IFxwYXIgICAgLSBTRVBBUk XERQGKHyJLOYLLSGCfK6Ha PxaYVr0GD07AVXNEWOFUFC JSC5VAIPZLPZENNLMHB1BI M9WtMD5UU4LPQ6dWJSEVGQ BHUkFOVUxBVElPTiBUSVNT VFJsAl7OQXDVBS2JSXGrjd 06VCR2OiOrm5H8RPJ3FIMr SRSao0pfKZSbsNPeXtIbLg NcZnRuYmpcdWMxXGRlZmYw v9flg984zINwg1vbTMItKz S8rQWnSMUirHFrZ101AEZx HSytc5fce1ByNCAeaFScx3 D9HWZDyopbbWh0dKylB41d j7U4AcvrY3naKEDmEXAfR1 JkBF0lGPOcAks5BJO9YCY8 BJHjJAGyB9AoVZ6kVKFbjU BfZSa8m3rqwAtdPBHnOSB0 c4ncXKfikdYcIQ8wsd3lqW l4f8ezfnFoACHuKNGkpVMK FOHfK3MxrDviDt5nuQx6gI fcXqimHLC9Uoa1AH4pwp47 xyu1uHjzEJYvamgxQdG5QU xqHNXzozurQVa9ZFqcTFEy gBM4XVUceFHcC8RgIIUlHB 4npfx9MSU7YZtkOKNoWwM1 NDBcaGVhZGVyeTcyMFxmb2 77FAV6XwCnOP5eL2Jbc9E7 wD9uqDZbEWUeiEYhZqWtZJ Apig0txUQuVSdje9VvNOY9 bkL4sKVdmEZmSSQrEaJ2UD qfXL0tnc45KWSgBNG3wx9c bGNccGdicmRyaGVhZFxwZ2 HaYDFeq023PSCcG6LwVFJb e7Q5xcXfWfKtWKAsrEZ2nh H8OVXzAH3qvsjnj2afBWeu UMafSKNekeU1ulB3XARfbE AcY1ObsF5jMZNzYG0wxmkr d8buCFM6MXxgHKXgMLV1Xi SuHJOfe7Vwmmp8QrEsz2Oo xZEoGHoeW67pu789QQKbnk IyB6mprLQincjbeANbvsgr VKlsuzH4JLHpFWymybjeTT RdFRddU5czTyDcTUYwkTrt SBkzc3UrEGWiUVRyBzGnnC JeCEKzXur1JHKqsOWoCZEn RhFeP7ojdifqIiIUTNMpg6 rhC5shkGPBaAXkR0YfNFmm npGfMKlbWLlxCQQ0GRP0Xc 75MsR1HYRctu30 CPT Code(s) (test code z5xqbQTxSNAoeADuDzYfRP = 3357) GuMUWzh2seFGLhtMPvVpHz MzNcZnRuYmpcdWMxXGRlZm Cti5lau258sIShp9ljEYFa MmT4gKFhHDCgaZAlB148w4 let5lqciYwyWB5OAKqZQT5 NCnjzsHvdlT2TAbpeNXsWo B9RBenviJnMHpgszCkfkRl Fsb6FTVtS963PUT1fQaey5 moZTN0WVMsJVXaQkOtRv9q xVTgG210YSAcAOXVCYOntB k2MYSjtaGfzwMldLIUs108 B070v0ukBURmbbWrgYmCuk gxo6bmX662HLVdjYUwxbYt IgDzCFHdrTAlbKX1ZRKqUB 1vgluvCjHhTS6hpfwuBcOm SS4kivl3VdVuEN6aehzbUh AvHYdaXWOfogrjDPFnp9Bm ucnjCS6vJ0Ufq6H9iR7gaM EoUNOufLDqOiGeUVAmfo6k iMDcYSytq5XvERF9duE8oL ZexOCmVRTmEG72Ozisu2Lw XiniDLS1SKZjcdFid7Drm4 xdFfMmvhZwQ8kqA6OnOUDa SIEuHQCrEnZrwrCuc0Vtm7 BivAQcjLq5f2lkDWSySBTw vZgus3lsUVB5IHZfV4P3oW Xye7uxJGnwYGHuhMZ1mtzy OOmzWJWbytO7zvdcPOwbBD UdlNE4wuueTNqxLCDqZbQ5 jkvwMEbqJZMiKTB6KHajj2 74ZMV1KPumHfjnUQhmFOPt bmNvbnRccGduZGVjXHBsYW luXHBsYWluXGYwXGZzMjRc pLnwtEjxaZ2bNyKzEoHnMC nbGI0tCRGtM6rhpVVaFAZk GMUuE9hsKyVjnY9gbTayUN scirEvIV3OY3N8JFJgdvE2 FOTnXuL0JznjNUPyPGmgHM EgeDJccGFyfQ== CLINICAL HISTORY (test v0algHDtAJBfbHUyAbYsNC code = 3351) KfNRVlz7puUWIouIPzAxRk MzNcZnRuYmpcdWMxXGRlZm Axs3cog294mHBec5qcPQHg CyX3gPRgDTKxrAUdT971q5 gao4vnjfWaoQD0LKIdDGD8 HUjgsjTejxN7NUverGYeJi S5TPimqdWuRGxqmoYgphRk Wiw9QONgL526DRZ6jLrxl4 mmCAP9AGLpVITjQxDoPa6j uNVzW114DTDaVHBLHXVfgG e5VMNmwgAkriHdkABKc479 S128k1oeEBStepTgxPeRgo tph5lhJ309PXGsxSAghxPj RfDsKFGozIIfsQM5PSIvGM 1viyxxEsFiBZ2vymioWaBl JI4ggjo0LiGhRW2ufhyyZf RrBWzuJMHtzhwoXTJyg6Rx eawfGS1dR2Vcy3Q0iY8klV OfFYMdkKCuOxJzAKGwcb3n mLQrPMhqn9WfHPW7raK0iY ZzcSGrAWDdKQ92Upent6Gu PycfTSM0VHTzvbEni0Fqf2 lgYwFwexNiL8nmV5VxGQOo LKKfFYRuAyDzndRiw7Uws2 WneZVukZb5h0qcHGBhEHYk eQrsc6jiLFL2OVTwL0L4xT Jld0dyYHxkPZTlwUD3cyoc ZNgkVUZzwxK9ufprWOreWS TjqFB0ccylSAnrZDHcGtA6 wajnECskHCSrXJY8YHxbg3 81FWR0FRzkRreyLGihISHr bmNvbnRccGduZGVjXHBsYW luXHBsYWluXGYwXGZzMjRc eQieoLxvzQ2lHpEtOeFlLV vdQE8gZJAsO6tjbRGtVWEl EFHcQ8smFiUdnL1bhMkySO tqxmEtIN1buORdxWeusPz4 aMQcm2QpjXIsfHA8gCwyiC B3UOQupuXvoZwddEotPACn d7DmUhkgAQApdvYpMKNtFV RccGFyfQ== SPECIMEN SOURCE (test t8yvjJOeWDYtjYSdFuYiBN code = 3377) KfSLXui0xgKHJbuIWlYxXw MzNcZnRuYmpcdWMxXGRlZm Cty0ntz421wTOft6knRBUw ZyG7bHJmIJXxxGTkL249p7 tlm8jgdxYpcAU9IQIbVSX2 NMefszMuewA9VKhouYGyKj R5AYspxvXqZTirsmLglyCt Vyf5WRErI806NGT0hAskb3 otHJZ2BSMcBAOvSrKsAo4a lGIcS077FCUeDLFCDQJbjO p8RIKqepFofdUpyOQZk372 Q776t0tmZUKjsiSyrZhAmd eqp4piX904WEKhzAHvhgKo LgTdWJLfiCGmdYE5DVUlDB 0cukhpEfNmQP7nvbwoSmNk WL3vgkn2TiRcAK5dftfnAu VjWHcdYJWvbvofCDVae6Rh zacgER8jR8Gnv4L4hT8wrI BfNOJmeZIxTwIhMQGziv1c bWOgWDjka9ZqRHO2ewH9aV YveWIeXNAqBR93Zcydf7Oz FhnxHYL4GMLakaWfu2Xfo9 sfElSxdaLcW9scI5UoXIKm AVUgZPSsAjLgmzMbs0Zov5 TkiPWysHc8c2ucRGNwXKPo gLilu8mnYTK3SLEnN2T0dI Mae2mjYUbfBWTmxVY4fbys LZcwWEXokbX4gqexFJceGG JkjHS1dioeZGbkIUFaZmP9 mjxdQTckSIGrLHS0CWczt0 49KNY4WJqlPijbBXlyRLLe bmNvbnRccGduZGVjXHBsYW luXHBsYWluXGYwXGZzMjRc gKiglRgtwY8iZkMaMpViIY zgXV2cYBHuZ3etfGBnBZTk GUCrH3udYpTswL9blDyiBB xmczIwIEEuIExlZnQgNXRo MICbf9uhrZLqJKJnUFzcpp xmVLNbZRndLoXpJGImFZ6r eWA8KPZoCYqyTTCxrr3= GROSS DESCRIPTION (test l1xeqBJnRPCipDOnHdRoTK code = 3366) DcCPCwf2xgSQNkpXTqWpMu MzNcZnRuYmpcdWMxXGRlZm Myu1kgk017yNYky6wxKISd BrO7hUNqZSLodCDaD640HH QpHImmi1hds7NuTRPfxHMu n5P8UHVSbavhoLb3tSbuR8 5cq6A0PwjoB5raCQThUOKj A4HlOD1sQQSvImp4ROS4TS O4CWCbSJOhU4AnNV4qYDDx qDMjIUf7t1bxtVbsXGRzZH P6b4mcPJlwseEtFH8uyd5u gMb1s5uzmjEmRSRmOYHhuT VOEEEqS3FvkUprWt0nuBn7 iRlmNvyjGWV6Esp8HW5wgu 07nhd9qAmrBZOqxpelBzA9 NNslJPVpnsejWSi9DKxuKA JnbDcyMFxtYXJncjcyMFxt YXJndDcyMFxtYXJnYjcyMF lgJFPwDSN4NIgsx700DTV8 CTnvi2soc4pirAWaHik3OO HzKjBiYrpiNHekg0Wen3tk KJGikv3rERN8xNRgbRftc0 W0gJApBNLpfGQvklMtFOAs AwI8BNxvOW0ole10FSNfLW X6fw2ulGFznOvpdxJlhQJe FGcjP4UeXBHvm990XNXkA3 UaVRLhj6P3yhOcKvKwBRUp lGN4skK5VPRrEEl6hRNvjg Q0xjAduWOcD2aexN70ZjJp fORlC9WnqH95IpMjeVSkO5 IfcZ77KcObsQCoC4RuzN58 UkEupJMeUNOjkVEjQp6piC IukAUwi8SsxQUcPOuyG30n q614NPYaroWnP2zniSNgxx yliUFcptyoJSeqrjV9SHFe XHBsYWluXGYwXGZzMjBcbG FuZzEwMzNcaGljaFxmMFxk DkSlLSAbTYidS5thSfXtCy VhUBUSsNNodA8hnrTWOAem TGAzV4AkltSpRHsmCSWunM W0kUTyTKckCiGnYLPpb6v1 tAJ4oLWzhDA5vEBfzRyfQT 6jaCLnSY7dXW9fQCnkRAtd tkLyy2SiBY52xTJyyjHoby QgZGVzaWduYXRlZCBhcyAi l42nwHU2mCSvuYNfFX85jL ZiZynzW26tc8vgnTElh4Ph o7ttdIEswVFtaD83QNMcrw OfTwSkV04epdMmPI5mUNH4 cmluZyAwLjcgeCAwLjMgeC KaZyOjA19qYSSvJKFtlVLw kC1yyuIwwuIaqFSexYY1JM EkWF28hATwgGkdsG73saWL JYUfmuMksJ69wxBeFAArxR Kqm5d0aVlxdp0czNVhYLYq lzWViMNnyW5uecAHPOcvUO FeC5IjlmCxBTabUNEweVY1 uSWbHHviQuFhOBCdz6p9nC M3aBDusDJ5fQOteKarAP1a oSHuWH8oPU9fSNwfJPgijj Tho3MyMC67jBAmbsSiboTd ZGVzaWduYXRlZCBhcyAibW D1DYEzbqRcxCYjYSP0Dufz K37qo3zwfMEof8TdRa60na IwXEHiTjDhg15hpItap6Nz VSCvAEHed74gRUChKToeVD 75ycHhSMVwnWGxwznkAo9b FMfgAK07TVesKB29WBVuWY jnOFKtV4CwB6I8NS8krDlk IHNwZWNpbWVuIGlzIGVudG ynSAc8BLizhDYwhelpGYff czIwXGxhbmcxMDMzXGhpY2 arEvGvGPIqrGipOWrcz4Qd YESeOBDzUaEnWdNcTB7sPI lllQ9bIPPeUFoia22ivBMx g22oGFXoJShySMCpFKLhQr BcbGFuZzEwMzNcaGljaFxm GNbzQgHdXZHaOAghA9lrVl BcZnMyMCAgTUcvZXdccGFy fQ== MICROSCOPIC DESCRIPTION c8cxnSClNHCxhCCxJxIcNA (test code = 3371) BnXSHit7ozDHLwsTUqGxUd MzNcZnRuYmpcdWMxXGRlZm Ejz8dvi811aWPua7asSXVn DdI8hTQzPNDknWTgC678x1 eea0lporZzdHG5XBWhUXY4 OMxyyvLvqeL2INadcLPlKe R0NXqrqwBiCOscxvKmeaEb Iqr0IJYeZ384JUJ4xEfpt2 avPMN1FFWdJWOaRvOqOs3g pXUtS139FKCuRVSCTHJppO w9SNGqeoXwjeMizBWUv666 I977h7glKIZdgpPjzUeUtb shu8srD663NUPvmCXrulJi TuJmAYFatZTwkZR6VGYsAM 1mipviIaSoSC3erpqbVkPb VH0oblg0EnRzYY4uueftHe MzPXkkCTFnjhllLUEkk8Vd fzqrGD6gV0Ewg7M4iL2keM EbUJVseSBwQcNjVHRcwd0v aNIbVAlyz3MlRYQ3frS9vO PzvTDlMAVdQD03Wqbai3Jg UxbhJBA8RTRsygShe5Cba7 evEiRoelMhR4pgZ3UbLPGs ZFCsBSBeCxPaobUkq7Ccj1 ExkRXwfSv4z1zsZRTxMCEw wZnsw1geSEI0PLFdC7A8mZ Qel6tsICutMEMzxWT6jyrs MLppRCRfgmT8kwyrVJhuDV UtqJN3llgjTVkcLMWbAtS6 ugtcEYztDEGtODP9YFynx6 39SNO2XHvoTipwWZxsLMWl bmNvbnRccGduZGVjXHBsYW luXHBsYWluXGYwXGZzMjRc rQtdvVpnaP2nFoYsAjSvZJ fgVV4hTURkT7aacUIeFGXg DNVbM4kdXcSutW0ziTbdFT mqwaShLNOtHh2qZLXcRq5g bWVkLlxwYXJ9 Gross assessment was [facility] performed at ([facility], Department = 2777) of Pathology, [address] [place] [address], Technical component was [facility]'s performed at ([facility], = 2778) Department of Pathology, [address] [place] [address], Professional component [facility] was performed at ([facility], Department code = 2779) of Pathology, [address] [place] [address], [facility] [id number] 10:21:00Surgical Pathology Report Case: [id number] Authorizing Provider: Tala Santacruz DPM Collected: 12/30/2019 01:38 PM Ordering Location: [address] Med/Surg Received: 12/31/2019 06:52 AM Pathologist: [...] TISSUE FORMATION Signing Pathologist Direct Phone Line: [phone] signed by Jovita Griffith MD on 01/04/2020 at 10:21 AMMG/[id number] n3Pxnyomixrebhw of left 5th metatarsal, ulcer of bilateral [...] entirely B1 and into decal solution. MG/Veronica-B. Performed.[facility], Department of Pathology, [address] [place] [address], Qnkfdi [facility], Department of Pathology, [address] [place] [address], [facility], [facility] of [facility], [address] [place] [address], HTXDUVXVA [id number] 10:47:00 Test Item Value Reference Interpretation Comments [...] negative Staphylococcus SURGICALLY OBTAINED CULTURE + GRAM [id number] 08:31:00 Test Item Value Reference Range Interpretation Comments CULTURE (BEAKER) (test code No growth = 1095) GRAM STAIN RESULT (BEAKER) <1+ WBCs (test code = 1123) GRAM STAIN RESULT (BEAKER) No organisms seen (test code = 87778) SURGICALLY OBTAINED CULTURE + GRAM [id number] 08:19:00 Test Item Value Reference Interpretation Comments Range CULTURE (BEAKER) STENOTROPHOMONAS A 2+ Sten otrophomonas (test code = 1095) MALTOPHILIA maltophil ia Levofloxacin (test S code = 22) Trimethoprim + S Sulfamethoxazole (test code = 47) GRAM STAIN RESULT <1+ WBCs (BEAKER) (test code = 1123) GRAM STAIN RESULT No organisms seen (BEAKER) (test code = 694231) POC-Glucose [id number] 06:47:00 Test Item Value Reference Range Interpretation Comments POC-Glucose Meter (test 102 mg/dL 70-110 : TE STED AT SLSL code = 1538) [facility] [place] [address]: Child Care Attendant/Techni artemio ID = [id number] for Brown, Anne Lab Interpretation (test Normal code = 77376-6) [facility] [id number] 06:47:00 Test Item Value Reference Range Interpretation Comments POC-Glucose Meter (test 102 mg/dL 70-110 : TE STED AT SLSL code = 1538) [address] [place] 669698: Child Care Attendant/Techni artemio ID = [id number] for Brown, Anne Lab Interpretation (test Normal code = 91329-1) [facility]-GLUCOSE [id number] 06:47:00 Test Item Value Reference Range Interpretation Comments POC-GLUCOSE METER 102 mg/dL 70-110 : TESTED A T [facility] 1317 (BEAKER) (test code [address], = 1538) [facility] [place] [address]: Child Care Attendant/Techni artemio ID = [id number] for Anne Busby Comprehensive metabolic [id number] 06:34:00 Test Item Value Reference Range Interpretation Comments Protein, Total (test 6.1 See_Comment [Autom ated code = 2885-2) message] The system which generated this result transmit merna reference range : 6.0 - 8.5 gm/dL . The reference range was not u sed to interpret th is result as normal/abnormal . Albumin (test code = 2.3 g/dL 3.5-5 L 66045-1) Alkaline Phosphatase 81 U/L 30-115 (test code = 6768-6) Total Bilirubin (test 0.4 mg/dL 0.1-1.2 code = 1975-2) Sodium (test code = 137 meq/L 512-626 3906-2) Potassium (test code 3.7 meq/L 3.6-5.5 = 2823-3) Chloride (test code = 100 meq/L 98-106 2075-0) CO2 (test code = 28 meq/L 20-29 2028-9) BUN (test code = 14 mg/dL 10-26 3094-0) Creatinine (test code 2.31 mg/dL 0.5-1.2 H = 2160-0) Glucose (test code = 100 mg/dL 70-110 2345-7) Calcium (test code = 7.5 mg/dL 8.5-10.5 L 85558-7) AST (test code = 15 U/L 5-40 1920-8) ALT (test code = 6 U/L 5-50 1742-6) EGFR (test code = 21 mL/min/1.73 [place] [address]-0) NOT ACCURATE CREATININE CLEARANCE IN PREDICTING GLOMERULAR FILTRATION RATE . ESTIMATED GFR I S NOT APPLICABLE FOR DIALYSIS PATIEN TSAlfred ZIA (test code = ZIA) Child Care Attendant ID - ADMIN Lab Interpretation Abnormal (test code = 45464-0) [facility] [id number] 06:34:00 Test Item Value Reference Range Interpretation Comments Protein, Total (test 6.1 See_Comment [Autom ated code = 2885-2) message] The system which generated this result transmit merna reference range : 6.0 - 8.5 gm/dL . The reference range was not u sed to interpret th is result as normal/abnormal . Albumin (test code = 2.3 g/dL 3.5-5 L 40475-3) Alkaline Phosphatase 81 U/L 30-115 (test code = 6768-6) Total Bilirubin (test 0.4 mg/dL 0.1-1.2 code = 1975-2) Sodium (test code = 137 meq/L 027-798 6238-2) Potassium (test code 3.7 meq/L 3.6-5.5 = 2823-3) Chloride (test code = 100 meq/L 98-106 2075-0) CO2 (test code = 28 meq/L 20-29 2028-9) BUN (test code = 14 mg/dL 10-26 3094-0) Creatinine (test code 2.31 mg/dL 0.5-1.2 H = 2160-0) Glucose (test code = 100 mg/dL 70-110 2345-7) Calcium (test code = 7.5 mg/dL 8.5-10.5 L 47920-4) AST (test code = 15 U/L 5-40 1920-8) ALT (test code = 6 U/L 5-50 1742-6) EGFR (test code = 21 mL/min/1.[place] [address]-4) NOT ACCURATE CREATININE CLEARANCE IN PREDICTING GLOMERULAR FILTRATION RATE . ESTIMATED GFR I S NOT APPLICABLE FOR DIALYSIS PATIEN TSAlfred ZIA (test code = ZIA) Child Care Attendant ID - ADMIN Lab Interpretation Abnormal (test code = 35007-0) [facility]PRE[facility] METABOLIC [id number] 06:34:00 Test Item Value Reference Range Interpretation [...] S NOT APPLICABLE FOR DIALYSIS PATIEN TS. Child Care Attendant ID - ADMINCBC with platelet count + automated [id number] 06:06:00 Test Item Value Reference Range Interpretation Comments WBC (test code = 6690-2) 5.7 See_Comment [A utomated message] The system [employer] generated this result transmitted ref erence range: 4.0 - 10 .0 K/L. The refe rence range was not u sed to interpret this result as normal/abnor mal. RBC (test code = 789-8) 2.41 See_Comment L [Au tomated message] The system [employer] generated this result transmitted ref erence range: 4.00 - 5 .00 M/L. The refe rence range was not u sed to interpret this result as normal/abnor mal. MCHC (test code = 786-4) 30.8 See_Comment L [A utomated message] The system [employer] generated this result transmitted ref erence range: [...] L [Aut omated message] 777-3) The system [employer] generated this result transmitted ref erence range: 150 - 43 0 K/CU MM. The referen ce range was not u sed to interpret this result as normal/abnor mal. MPV (test code = 10.5 fL 6-11.5 84506-3) nRBC (test code = 413) 0 See_Comment [Aut omated message] The system [employer] generated this result transmitted ref erence range: [...] See_Comment [Aut omated message] 670) The system [employer] generated this result transmitted ref erence range: 1.80 - 8 .00 K/L. The refe rence range was not u sed to interpret this result as normal/abnor mal. # Lymphs (test code = 1.66 See_Comment [Auto mated message] 414) The system [employer] generated this result transmitted ref erence range: 1.48 - 4 .50 K/L. The refe rence range was not u sed to interpret this result as normal/abnor mal. # Monos (test code = 0.28 See_Comment [Autom ated message] 415) The system [employer] generated this result transmitted ref erence range: 0.00 - 1 .30 K/L. The refe rence range was not u sed to interpret this result as normal/abnor mal. # Eos (test code = 416) 0.12 See_Comment [Au tomated message] The system [employer] generated this result transmitted ref erence range: 0.00 - 0 .50 K/L. The refe rence range was not u sed to interpret this result as normal/abnor mal. # Baso (test code = 417) 0.07 See_Comment [A utomated message] The system [employer] generated this result transmitted ref erence range: 0.00 - 0 .20 K/L. The refe rence range was not u sed to interpret this result as normal/abnor mal. Immature 0 % 0-0 Granulocytes-Relative (test code = 2801) Lab Interpretation (test Abnormal code = 55796-5) [facility] with platelet count + automated [id number] 06:06:00 Test Item Value Reference Range Interpretation Comments WBC (test code = 6690-2) 5.7 See_Comment [A utomated message] The system [employer] generated this result transmitted ref erence range: 4.0 - 10 .0 K/L. The refe rence range was not u sed to interpret this result as normal/abnor mal. RBC (test code = 789-8) 2.41 See_Comment L [Au tomated message] The system [employer] generated this result transmitted ref erence range: 4.00 - 5 .00 M/L. The refe rence range was not u sed to interpret this result as normal/abnor mal. MCHC (test code = 786-4) 30.8 See_Comment L [A utomated message] The system [employer] generated this result transmitted ref erence range: [...] L [Aut omated message] 777-3) The system [employer] generated this result transmitted ref erence range: 150 - 43 0 K/CU MM. The referen ce range was not u sed to interpret this result as normal/abnor mal. MPV (test code = 10.5 fL 6-11.5 16290-7) nRBC (test code = 413) 0 See_Comment [Aut omated message] The system [employer] generated this result transmitted ref erence range: [...] See_Comment [Aut omated message] 670) The system [employer] generated this result transmitted ref erence range: 1.80 - 8 .00 K/L. The refe rence range was not u sed to interpret this result as normal/abnor mal. # Lymphs (test code = 1.66 See_Comment [Auto mated message] 414) The system [employer] generated this result transmitted ref erence range: 1.48 - 4 .50 K/L. The refe rence range was not u sed to interpret this result as normal/abnor mal. # Monos (test code = 0.28 See_Comment [Autom ated message] 415) The system [employer] generated this result transmitted ref erence range: 0.00 - 1 .30 K/L. The refe rence range was not u sed to interpret this result as normal/abnor mal. # Eos (test code = 416) 0.12 See_Comment [Au tomated message] The system [employer] generated this result transmitted ref erence range: 0.00 - 0 .50 K/L. The refe rence range was not u sed to interpret this result as normal/abnor mal. # Baso (test code = 417) 0.07 See_Comment [A utomated message] The system [employer] generated this result transmitted ref erence range: 0.00 - 0 .20 K/L. The refe rence range was not u sed to interpret this result as normal/abnor mal. Immature 0 % 0-0 Granulocytes-Relative (test code = 2801) Lab Interpretation (test Abnormal code = 18003-8) [facility] W/PLT COUNT & AUTO [id number] 06:06:00 Test Item Value Reference Range Interpretation [...] PERCENT (BEAKER) (test code = 2801) POCT-GLUCOSE [id number] 21:02:00 Test Item Value Reference Range Interpretation Comments POC-GLUCOSE METER 167 mg/dL 70-110 H : TESTED A T [facility] 1317 (BEAKER) ([facility] = 1538) [place] [address]: Child Care Attendant/Techni artemio ID = [id number] for Anne Busby POCT-GLUCOSE [id number] 18:12:00 Test Item Value Reference Range Interpretation Comments POC-GLUCOSE METER 121 mg/dL 70-110 H : TESTED A T [facility] [address]17 (BEAKER) (test code [facility] [address], = 1538) [place] [address]: Child Care Attendant/Techni artemio ID = [id number] for Cortney Cohen POCT-GLUCOSE [id number] 11:54:00 Test Item Value Reference Range Interpretation Comments POC-GLUCOSE METER 117 mg/dL 70-110 H : TESTED A T [facility] 1317 (BEAKER) (test code [facility], = 1538) [place] [address]: Child Care Attendant/Techni artemio ID = [id number] for Cortney Cohen COMPREHENSIVE METABOLIC [id number] 06:47:00 Test Item Value Reference Range Interpretation [...] S NOT APPLICABLE FOR DIALYSIS PATIEN TS. Child Care Attendant ID - [id number] 06:42:00 Test Item Value Reference Range Interpretation Comments Magnesium (test code = 1.6 mg/dL 1.5-3 02478-9) ZIA (test code = ZIA) Child Care Attendant ID - ADMIN Lab Interpretation (test Normal code = 27074-0) [facility] Center[facility]esium2020-10-02 06:42:00 Test Item Value Reference Range Interpretation Comments Magnesium (test code = 1.6 mg/dL 1.5-3 61394-3) ZIA (test code = ZIA) Child Care Attendant ID - ADMIN Lab Interpretation (test Normal code = 51714-6) [facility] CenterPO[facility]-GLUCOSE [id number] 06:42:00 Test Item Value Reference Range Interpretation Comments POC-GLUCOSE METER 101 mg/dL 70-110 : TESTED A T [facility] [address] (BEAKER) (test code [address], = 1538) [facility] [address]: Child Care Attendant/Techni artemio ID = [id number] for Ashley austin Anne [id number] 06:42:00 Test Item Value Reference Range Interpretation Comments MAGNESIUM (BEAKER) (test code = 1.6 mg/dL 1.5-3.0 627) Child Care Attendant ID - ADMINCBC W/PLT COUNT & AUTO [id number] 06:37:00 Test Item Value Reference Range Interpretation [...] PERCENT (BEAKER) (test code = 2801) POCT-GLUCOSE [id number] 20:24:00 Test Item Value Reference Range Interpretation Comments POC-GLUCOSE METER 155 mg/dL 70-110 H : TESTED A T [facility] 1317 (BEAKER) (test code [address], = 1538) [facility] [address]: Child Care Attendant/Techni artemio ID = [id number] for Anne Busby POCT-GLUCOSE [id number] 16:39:00 Test Item Value Reference Range Interpretation Comments POC-GLUCOSE METER 164 mg/dL 70-110 H : Notified RN/MD: TESTED (BEAKER) (test code AT [facility] [address] = [address]) [address], [facility] [address]: Child Care Attendant/Techni artemio ID = [id number] for Alondra Kelley SARS-CoV2/RT-PCR (Asymptomatic ONLY)2019-12-30 15:57:00 Test Item Value Reference Range Interpretation Comments SARS-COV2/RT-PCR Negative Not Detected, (test code = Negative, See 10242-5) external report for linked test SARS-COV-2 [facility] (test code = 29268-2) ZIA (test code = Negative result for [...] of the Act. Fact Sheet for Healthcare Providers:https://www.[employer]/sites/default/f loco/product/documents/F act_Sheet_HC_Providers_L eng_XAAE-NbH-0.pdf Fact Sheet for Healthcare Patients:https://www.[employer]/sites/default/fi les/product/documents/Fa ct_Sheet_Patients_Lyra_S ARS-CoV-2.pdf Performing Laboratory:[place] [address] [address]ARS-CoV2/RT-PCR (Asymptomatic ONLY)2019-12-30 15:57:00 Test Item Value Reference Range Interpretation Comments SARS-COV2/RT-PCR Negative Not Detected, (test code = Negative, See 71061-9) external report for linked test SARS-COV-2 [facility] (test code = 72193-3) ZIA (test code = Negative result for [...] of the Act. Fact Sheet for Healthcare Providers:https://www.[employer]/sites/default/f loco/product/documents/F act_Sheet_HC_Providers_L stx_INQH-JuE-8.pdf Fact Sheet for Healthcare Patients:https://www.PathJump/sites/default/fi les/product/documents/Fa ct_Sheet_Patients_Lyra_S ARS-CoV-2.pdf Performing Laboratory:[facility] [place], [place] [address] [place], [place] [address]ARS-COV2/RT-PCR ([facility])2019-12-30 15:57:00 Test Item Value Reference Range Interpretation Comments SARS-COV2/RT-PCR (test Negative Not Detected, Negative, code = 4607695) See external report for linked test SARS-COV-2 PERFORMING [facility] (test code = 8052103) Negative result for this test determines that [...] 564(g) of the Act.Fact Sheet for Healthcare Providers:https://www.[employer]/sites/default/files/product/documents/Fact_Shee u_XY_Sgkhhtfhd_Lsik_UMJP-ZsE-3.pdfFact Sheet for Healthcare Patients:https://www.[employer]/sites/default/files/product/ documents/Leei_Ibral_Letpjvmy_Zfli_HFUJ-KsU-4.pdfPerforming Laboratory:[facility] [facility] [address], [place] [address]ZIJZ-XOTNTPW METER 2019-12-30 11:50:00 Test Item Value Reference Range Interpretation Comments POC-GLUCOSE METER 82 mg/dL 70-110 : Notified RN/MD: TESTED (ROBERT) (test code = AT [facility] [address] [facility] [place] 153) [facility] [address]: Child Care Attendant/Techni artemio ID = [id number] for Alondra Kelley WOUND CULTURE + GRAM [id number] 10:45:00 Test Item Value Reference Interpretation Comments [...] gram negative (BEAKER) (test code rods = 071677) POCT-GLUCOSE [id number] 05:50:00 Test Item Value Reference Range Interpretation Comments POC-GLUCOSE METER 103 mg/dL 70-110 : Notified RN/MD: TESTED (BEAKER) (test code AT [address] = 1538) [facility] [address]: Child Care Attendant/Techni artemio ID = [id number] for Zonia Healy COMPREHENSIVE METABOLIC [id number] 05:44:00 Test Item Value Reference Range Interpretation [...] S NOT APPLICABLE FOR DIALYSIS PATIEN TS. Child Care Attendant ID - ADMINCBC W/PLT COUNT & AUTO [id number] 05:29:00 Test Item Value Reference Range Interpretation [...] PERCENT (BEAKER) (test code = 2801) POCT-GLUCOSE [id number] 21:21:00 Test Item Value Reference Range Interpretation Comments POC-GLUCOSE METER 185 mg/dL 70-110 H : Notified RN/MD: TESTED (BEAKER) (test code AT [facility] 131[facility] POINT = 1538) [place] [address]: Child Care Attendant/Techni artemio ID = [id number] for Zonia Healy POCT-GLUCOSE [id number] 11:21:00 Test Item Value Reference Range Interpretation Comments POC-GLUCOSE METER 143 mg/dL 70-110 H : Notified RN/MD: TESTED (BEAKER) (test code AT [facility] 131[facility] POINT = 1538) [place] [address]: Child Care Attendant/Techni artemio ID = [id number] for Alondra Kelley COMPREHENSIVE METABOLIC [id number] 06:27:00 Test Item Value Reference Range Interpretation [...] S NOT APPLICABLE FOR DIALYSIS PATIEN TS. Child Care Attendant ID - ADMINPOCT-GLUCOSE [id number] 06:21:00 Test Item Value Reference Range Interpretation Comments POC-GLUCOSE METER 73 mg/dL 70-110 : Notified RN/MD: TESTED (BEAKER) (test code = AT [facility] 13[address] [facility] [place] 1538) [facility] [address]: Child Care Attendant/Techni artemio ID = [id number] for Zonia Healy CBC W/PLT COUNT & AUTO [id number] 06:00:00 Test Item Value Reference Range Interpretation [...] PERCENT (BEAKER) (test code = 2801) POCT-GLUCOSE [id number] 20:48:00 Test Item Value Reference Range Interpretation Comments POC-GLUCOSE METER 84 mg/dL 70-110 : Notified RN/MD: TESTED (BEAKER) (test code = AT [facility] [address]) [facility] [address]: Child Care Attendant/Techni artemio ID = [id number] for Zonia Healy POCT-GLUCOSE [id number] 17:51:00 Test Item Value Reference Range Interpretation Comments POC-GLUCOSE METER 59 mg/dL 70-110 L : TESTED A T [facility] 1317 (BEAKER) (test code = [facility], 1538) [facility] [address]: Child Care Attendant/Techni artemio ID = [id number] for Berta Servin POCT-GLUCOSE [id number] 13:28:00 Test Item Value Reference Range Interpretation Comments POC-GLUCOSE METER 67 mg/dL 70-110 L : TESTED A T [facility] [address]17 (BEAKER) (test code = [address], 1538) [facility] [address]: Child Care Attendant/Techni artemio ID = [id number] for Berta Servin POCT-GLUCOSE [id number] 06:04:00 Test Item Value Reference Range Interpretation Comments POC-GLUCOSE METER 94 mg/dL 70-110 : TESTED A T [facility] [address]17 (BEAKER) (test code = [address], 1538) [facility] [address]: Child Care Attendant/Techni artemio ID = [id number] for Anahi Sherman COMPREHENSIVE METABOLIC [id number] 05:35:00 Test Item Value Reference Range Interpretation [...] S NOT APPLICABLE FOR DIALYSIS PATIEN TS. Child Care Attendant ID - ADMINCBC W/PLT COUNT & AUTO [id number] 04:56:00 Test Item Value Reference Range Interpretation [...] PERCENT (BEAKER) (test code = 2801) POCT-GLUCOSE [id number] 20:43:00 Test Item Value Reference Range Interpretation Comments POC-GLUCOSE METER 137 mg/dL 70-110 H : TESTED A T [facility] [address]17 (BEAKER) (test code [address], = 1538) [facility] [address]: Child Care Attendant/Techni artemio ID = [id number] for Anahi Sherman, EXTREMITY, LOWER, WITHOUT CONTRAST, [id number] 16:55:00MRI LEFT FOOT.Unlisted Reason for Exam - [...] 12/27/2019 16:55:07 Reading Location: [facility] Radiology Reading Room MR lower extremity without IV contrast left [id number] 16:55:00Interface, External Ris In - 12/27/2019 4:57 [...] 12/27/2019 16:55:07 Reading Location: [facility] Radiology Reading Room Electronically signed by: Adrienne CHU 12/27/2019 04:55 [facility] left [id number] 16:55:00Interface, External Ris In - 12/27/2019 4:57 [...] 12/27/2019 16:55:07 Reading Location: [facility] Radiology Reading Room Electronically signed by: Adrienne CHU 12/27/2019 04:55 [facility] [id number] 14:19:00 Test Item Value Reference Range Interpretation Comments POC-GLUCOSE METER 232 mg/dL 70-110 H : TESTED A T [facility] 1317 (BEAKER) (test code [address], = 1538) [facility] [address]: Child Care Attendant/Techni artemio ID = [id number] for Christina rBerta CT, CTA AAA, W/ GÓMEZ.EXT.[id number] 11:38:00Bilateral lower extremities Addendum BeginsREPORT STATUS:A I agree with the nonvascular findings with exceptions and emphasis as below:*Moderate right and small left pleural effusions are partially visualized.*Large volume ascites.*Diffuse anasarca*The reflux of contrast into the hepatic veins is concerning for volume overload. Signed: Molly Linares MDReport Verified Date/Time: 12/27/2019 11:38:28 Reading Location: [facility] Diagnostic Imaging Reading Room - [place] [address] [address] angiography of the abdominal aorta and runoff, 26-Dec-19 INDICATION: This is a 64 year old female with with lower leg penetrating trauma presents for assessment. TECHNIQUE: Spiral acquisition before and during intravenous contrast administration using a [employer] multidetector CT scanner. Images were obtained before [...] identified. However, significant calcification identified of the sioux left SFA, for example at image 516, [...] the right popliteal artery is patent, with cvkv-mw-glyekxja diffuse calcification identified with no obstructive lesion [...] However, in the distal left SFA, the sioux artery substantial calcification identified and the stent [...] atherosclerosis identified. 4. In the right, the sioux right SFA is not filled by contrast [...] dictated regarding the non-vascular findings by the [facility] Radiologist. Signed: Shlomo Dockery MDReport Verified Date/Time: 12/27/2019 07:59:51 Reading Location: [place] [address] [address] Reading Room Protein electrophoresis, serum 2019-12-27 [...] as normal/abnormal . ZIA (test code = Child Care Attendant ID - ZIA) [facility] Lab Interpretation Abnormal (test code = 49410-8) [facility], [id number] 09:29:00 Test Item Value Reference Range Interpretation [...] as normal/abnormal . ZIA (test code = Child Care Attendant ID - ZIA) [facility] Lab Interpretation Abnormal (test code = 44135-2) [facility] CenterPROTEIN ELECTROPHORESIS, [id number] 09:29:00 Test Item Value Reference Range Interpretation [...] chronic inflammatory response. No monoclonal bands detected. [id number] Rocio Galindo MD (BEAKER) (test code = (electronic signature) 2436) PROTEIN TOTAL SERUM, 6.3 gm/dL 6.0-8.3 SPEP (BEAKER) (test code = 2660) Child Care Attendant ID - [place] FCTA AAA and [id number] 07:59:00Interface, External Ris In - 12/27/2019 11:40 AM CDTAddendum BeginsREPORT STATUS:A I agree with the nonvascular findings with exceptions and emphasis as below:*Moderate right andsmall left pleural effusions are partially visualized.*Large volume ascites.*Diffuse anasarca*The reflux of contrast into the hepatic veins is concerning for volume overload. Signed: Molly Linares MDReport Verified Date/Time: 12/27/2019 11:38:28 Reading Location: [facility] Diagnostic Imaging Reading Room - [place] [address] [address] CT angiography of the abdominal aorta and runoff, 26-Dec-19 INDICATION: This is a 64 year old female with with lower leg penetrating trauma presents for assessment. TECHNIQUE: Spiral acquisition before and during intravenous contrast administration using a [employer] multidetector CT scanner. Images were obtained before [...] to as low as reasonably achievable. IRWIN CANDELARIAS: VASCULAR: A central venous catheter is partially [...] identified. However, significant calcification identified of the sioux left SFA, for example at image 516, [...] the right popliteal artery is patent, with hgpe-kt-znabpizw diffuse calcification identified with no obstructive lesion [...] However, in the distal left SFA, the sioux artery substantial calcification identified and the stent [...] atherosclerosis identified. 4. In the right, the sioux right SFA is not filled by contrast [...] dictated regarding the non-vascular findings by the Harpooner Radiologist. Signed: Shlomo Dockery MDReport Verified Date/Time: 12/27/2019 07:59:51 Reading Location: [place] [address] [address] [facility] and [id number] 07:59:00Interface, External Ris In - 12/27/2019 11:40 AM CDTAddendum BeginsREPORT STATUS:A I agree with the nonvascular findings with exceptions and emphasis as below:*Moderate right andsmall left pleural effusions are partially visualized.*Large volume ascites.*Diffuse anasarca*The reflux of contrast into the hepatic veins is concerning for volume overload. Signed: Molly Linares MDReport Verified Date/Time: 12/27/2019 11:38:28 Reading Location: [facility] Diagnostic Imaging Reading Room - [place] [address] [address] angiography of the abdominal aorta and runoff, 26-Dec-19 INDICATION: This is a 64 year old female with with lower leg penetrating trauma presents for assessment. TECHNIQUE: Spiral acquisition before and during intravenous contrast administration using a [employer] multidetector CT scanner. Images were obtained before [...] identified. However, significant calcification identified of the sioux left SFA, for example at image 516, [...] the right popliteal artery is patent, with adal-xg-qadkfvjm diffuse calcification identified with no obstructive lesion [...] However, in the distal left SFA, the sioux artery substantial calcification identified and the stent [...] atherosclerosis identified. 4. In the right, the sioux right SFA is not filled by contrast [...] dictated regarding the non-vascular findings by the Harpooner Radiologist. Signed: Shlomo Dockery Verified Date/Time: 12/27/2019 07:59:51 Reading Location: [place] [address] [address] Reading Room [facility] [id number] 06:56:00 Test Item Value Reference Range Interpretation Comments POC-GLUCOSE METER 39 mg/dL 70-110 LL : Notified RN/: TESTED (BEAKER) (test code = AT [facility] [address] [facility] [place] 1538) [facility] [address]: Child Care Attendant/Techni artemio ID = [id number] for Anahi Sherman COMPREHENSIVE METABOLIC [id number] 06:15:00 Test Item Value Reference Range Interpretation [...] S NOT APPLICABLE FOR DIALYSIS PATIEN TS. Child Care Attendant ID - ADMINPOCT-GLUCOSE [id number] 06:01:00 Test Item Value Reference Range Interpretation Comments POC-GLUCOSE METER 55 mg/dL 70-110 L : Notified RN/MD: TESTED (BEAKER) (test code = AT [address]) [facility] [address]: Child Care Attendant/Techni artemio ID = [id number] for Anahi Sherman CBC W/PLT COUNT & AUTO [id number] 05:44:00 Test Item Value Reference Range Interpretation [...] PERCENT (BEAKER) (test code = 2801) POCT-GLUCOSE [id number] 21:03:00 Test Item Value Reference Range Interpretation Comments POC-GLUCOSE METER 278 mg/dL 70-110 H : Notified RN/MD: TESTED (BEAKER) (test code AT [facility] 131[facility] = 1538) [place] [address]: Child Care Attendant/Techni atremio ID = [id number] for Anahi Sherman POCT-GLUCOSE [id number] 16:53:00 Test Item Value Reference Range Interpretation Comments POC-GLUCOSE METER 70 mg/dL 70-110 : TESTED A T [address] (BEAKER) (test code = [address], [address]) [place] [address]: Child Care Attendant/Techni artemio ID = [id number] for Nalini Jean Baptiste POCT-GLUCOSE [id number] 12:11:00 Test Item Value Reference Range Interpretation Comments POC-GLUCOSE METER 97 mg/dL 70-110 : TESTED A T [address] (BEAKER) (test code = [address], [address]) [place] [address]: Child Care Attendant/Techni artemio ID = [id number] for Nalini Jean Baptiste POCT-GLUCOSE [id number] 06:21:00 Test Item Value Reference Range Interpretation Comments POC-GLUCOSE METER 71 mg/dL 70-110 : TESTED A T [address] (BEAKER) (test code = [address], [address]) [place] [address]: Child Care Attendant/Techni artemio ID = [id number] for Nwad iufu, Holly COMPREHENSIVE METABOLIC [id number] 05:50:00 Test Item Value Reference Range Interpretation [...] S NOT APPLICABLE FOR DIALYSIS PATIEN TS. Child Care Attendant ID - ADMINCBC W/PLT COUNT & AUTO [id number] 05:17:00 Test Item Value Reference Range Interpretation [...] (BEAKER) (test code = 2801) Prepare Leuko-Red [id number] 23:54:00 Test Item Value Reference Range Interpretation Comments CROSSMATCH (test code = 2264) COMPATIBLE Unit ABO (test code = O Pos 0633020) UNIT NUMBER (test code = [id number] 934-0) Status (test code = 2007642) [facility] Blood Bank Product (test code RED BLOOD CELLS = 2263) PRODUCT CODE (test code = N8444U11 933-2) [facility]Red [id number] 23:54:00 Test Item Value Reference Range Interpretation Comments CROSSMATCH (test code = 2264) COMPATIBLE Unit ABO (test code = O Pos 4220093) UNIT NUMBER (test code = [id number] 934-0) Status (test code = 2319719) [facility] Blood Bank Product (test code RED BLOOD CELLS = 2263) PRODUCT CODE (test code = X5850B15 933-2) [facility] CenterPO[facility]SE [id number] 21:03:00 Test Item Value Reference Range Interpretation Comments POC-GLUCOSE METER 87 mg/dL 70-110 : TESTED A T [address] (BEAKER) (test code = [address], [address]) [facility] [place] [address]: Child Care Attendant/Techni artemio ID = [id number] for Nwad iufu, Holly POCT-GLUCOSE [id number] 17:12:00 Test Item Value Reference Range Interpretation Comments POC-GLUCOSE METER 79 mg/dL 70-110 : TESTED A T [address] (BEAKER) (test code = [address], 1538) [facility] [address]: Child Care Attendant/Techni artemio ID = [id number] for Nalini Jean Baptiste POCT-GLUCOSE [id number] 11:37:00 Test Item Value Reference Range Interpretation Comments POC-GLUCOSE METER 262 mg/dL 70-110 H : TESTED A T [address] (BEAKER) (test code [address], = 1538) [facility] [address]: Child Care Attendant/Techni artemio ID = [id number] for Nalini Jean Baptiste COMPREHENSIVE METABOLIC [id number] 06:29:00 Test Item Value Reference Range Interpretation [...] S NOT APPLICABLE FOR DIALYSIS PATIEN TS. Child Care Attendant ID - ADMINCBC W/PLT COUNT & AUTO [id number] 06:12:00 Test Item Value Reference Range Interpretation [...] PERCENT (BEAKER) (test code = 2801) POCT-GLUCOSE [id number] 06:09:00 Test Item Value Reference Range Interpretation Comments POC-GLUCOSE METER 83 mg/dL 70-110 : Notified RN/MD: TESTED (BEAKER) (test code = AT [facility] L [address]) [place] [address]: Child Care Attendant/Techni artemio ID = [id number] for Anahi Sherman POCT-GLUCOSE [id number] 16:26:00 Test Item Value Reference Range Interpretation Comments POC-GLUCOSE METER 182 mg/dL 70-110 H : Notified RN/MD: TESTED (BEAKER) (test code AT [facility] [address] = 1538) [place] [address]: Child Care Attendant/Techni artemio ID = [id number] for Alondra Kelley, [id number] 09:17:00 Test Item Value Reference Range Interpretation Comments Rh Factor (test code = POS 2589) ABO Grouping (test code O PINK TOP 12/24/19 @ 0824 = 2588) [facility] CenterABORH, [id number] 09:17:00 Test Item Value Reference Range Interpretation Comments Rh Factor (test code = POS 2589) ABO Grouping (test code O PINK TOP 12/24/19 @ 0824 = 2588) [facility] CenterType and screen, [id number] 07:31:00 Test Item Value Reference Range Interpretation Comments ABO/RH AUTOMATED (BEAKER) (test O POSITIVE ECHO code = 2260) Ab Scrn (test code = 890-4) NEGATIVE ECHO [facility] CenterType and screen, [id number] 07:31:00 Test Item Value Reference Range Interpretation Comments ABO/RH AUTOMATED (BEAKER) (test O POSITIVE ECHO code = 2260) Ab Scrn (test code = 890-4) NEGATIVE ECHO [facility] [id number] 06:42:00 Test Item Value Reference Range Interpretation [...] S NOT APPLICABLE FOR DIALYSIS PATIEN TS. Child Care Attendant ID - ADMINPOCT-GLUCOSE [id number] 06:23:00 Test Item Value Reference Range Interpretation Comments POC-GLUCOSE METER 88 mg/dL 70-110 : TESTED A T [address] (BEAKER) (test code = [address], 1538) [facility] [address]: Child Care Attendant/Techni artemio ID = [id number] for Anne Busby CBC W/PLT COUNT & AUTO [id number] 06:23:00 Test Item Value Reference Range Interpretation [...] PERCENT (BEAKER) (test code = 2801) POCT-GLUCOSE [id number] 21:38:00 Test Item Value Reference Range Interpretation Comments POC-GLUCOSE METER 126 mg/dL 70-110 H : TESTED A T [address] (BEDANIELA) (test code [address], = 1538) [facility] [address]: Child Care Attendant/Techni artemio ID = [id number] for Anne Busby POCT-GLUCOSE [id number] 16:54:00 Test Item Value Reference Range Interpretation Comments POC-GLUCOSE METER 89 mg/dL 70-110 : Notified RN/MD: TESTED (ROBERT) (test code = AT [address]) PKY, [facility] [address]: Child Care Attendant/Techni artemio ID = [id number] for Alondra Kelley MR, EXTREMITY, LOWER, JOINT, WITHOUT CONTRAST, [id number] 16:10:00Unlisted Reason for Exam - Click Yes [...] edema, no drainable collection is identified. Signed: Nikki, Margot MDReport Verified Date/Time: 12/23/2019 16:10:32 Reading Location: [facility] B1 C013X Ortho Consult Reading Room MR lower extremity joint only without IV contrast left [id number] 16:10:00Interface, External Ris In - 12/23/2019 4:12 [...] Jordan Verified Date/Time: 12/23/2019 16:10:32 Reading Location: [facility] C013X Ortho Consult Reading Room [facility]MR lower extremity joint only without [...] Jordan Verified Date/Time: 12/23/2019 16:10:32 Reading Location: [facility] C013X Ortho Consult Reading Room [facility] CenterMR, BRAIN, WITHOUT [id number] 15:43:00Unlisted Reason for Exam - Click Yes [...] Signed: Berta Munizort Verified Date/Time: 12/23/2019 15:43:24 MR brain without IV [id number] 15:43:00Interface, External Ris In - 12/23/2019 3:45 [...] Signed: Berta Muniz Verified Date/Time: 12/23/2019 15:43:24 [facility] CenterMR brain without IV [id number] 15:43:00Interface, External Ris In - 12/23/2019 3:45 [...] Signed: Berta Muniz Verified Date/Time: 12/23/2019 15:43:24 [facility]) 2019-12-23 14:16:00 Test Item Value Reference Range Interpretation Comments SARS-COV2/RT-PCR (test Negative Not Detected, Negative, code = 9619593) See external report for linked test SARS-COV-2 PERFORMING LAB [facility] (test code = 9211392) Negative result for this test determines that [...] 564(g) of the Act.Fact Sheet for Healthcare Providers:https://www.UrgentRxidel.com/sites/default/files/product/documents/Fact_Shee e_JE_Zkljtmkxl_Ohml_EESW-SvI-0.pdfFact Sheet for Healthcare Patients:https://www.Urgent[employer].com/sites/default/files/product/ documents/Ooox_Zjgph_Jkqcziri_Szzq_WAWY-ToF-7.pdfPerforming Laboratory:[facility], [place] [address]Jqily / lambda light chains, [id number] 12:25:00 Test Item Value Reference Interpretation Comments Range Laurier Lt Chain,Free 474.4 mg/L 3.3-19.4 H (test code = 77580-4) Lambda Lt 225.6 mg/L 5.7-26.3 H Chain,Free (test code = 27079-3) Laurier/Lambda,Free 2.1 0.26-1.65 H Free annabelle a/lambda (test [...] = Performing Lab ZIA) EZ [facility] [address] [place] [address] Jaguar Stein MD, PhD, CORI Lab Interpretation Abnormal (test code = 04348-7) [facility] CenterKappa / lambda light chains, [id number] 12:25:00 Test Item Value Reference Interpretation Comments Range Laurier Lt Chain,Free 474.4 mg/L 3.3-19.4 H (test code = 44126-5) Lambda Lt 225.6 mg/L 5.7-26.3 H Chain,Free (test code = 59635-9) Laurier/Lambda,Free 2.1 0.26-1.65 H Free annabelle a/lambda (test [...] = Performing Lab ZIA) EZ [facility] [address] [place] [address] Jaguar Stein MD, PhD, CORI Lab Interpretation Abnormal (test code = 81372-8) [facility] CenterPOCT-GLUCOSE [id number] 11:27:00 Test Item Value Reference Range Interpretation Comments POC-GLUCOSE METER 189 mg/dL 70-110 H : Notified RN/MD: TESTED (BEAKER) (test code AT [facility] [address] = 1538) [facility] [address]: Child Care Attendant/Techni artemio ID = [id number] for Repa julio, Alondra ARTERIAL DOPPLER LEGS, [id number] 11:22:00Reason for exam:->non healing ulcer , non [...] to severe peripheral arterial disease. Signed:Luis Alberto Monahanort Verified Date/Time: 12/23/2019 11:22:31 Reading Location: [facility] Radiology Reading Room Arterial Doppler Legs [id number] 11:22:00 Interface, External Ris In - 12/23/2019 [...] MDReport Verified Date/Time: 12/23/2019 11:22:31 Reading Location: [facility] Radiology Reading [facility] Legs [id number] 11:22:00Interface, External Ris In - 12/23/2019 11:24 [...] MDReport Verified Date/Time: 12/23/2019 11:22:31 Reading Location: [facility] Radiology Reading Room [facility]inaCOMPREHENSIVE METABOLIC PANEL 2019-12-23 04:44:00 Test Item Value [...] S NOT APPLICABLE FOR DIALYSIS PATIEN TS. Child Care Attendant ID - ADMINCBC W/PLT COUNT & AUTO [id number] 04:35:00 Test Item Value Reference Range Interpretation [...] H PERCENT (BEAKER) (test code = 2801) [id number] 04:29:00 Test Item Value Reference Range Interpretation Comments Ammonia (test code = 36 See_Comment [Autom ated 25293-3) message] The system which generated this result transmit merna reference range : 17 - 80 mol/L . The reference range was not u sed to interpret th is result as normal/abnormal . ZIA (test code = ZIA) Child Care Attendant ID - ADMIN Lab Interpretation Normal (test code = 04130-2) [facility] CenterAmmonia2020-09-24 04:29:00 Test Item Value Reference Range Interpretation Comments Ammonia (test code = 36 See_Comment [Autom ated 76021-0) message] The system which generated this result transmit merna reference range : 17 - 80 mol/L . The reference range was not u sed to interpret th is result as normal/abnormal . ZIA (test code = ZIA) Child Care Attendant ID - ADMIN Lab Interpretation Normal (test code = 96501-5) [facility] CenterAMMONIA2020-09-24 04:29:00 Test Item Value Reference Range Interpretation Comments AMMONIA (BEAKER) (test code = 348) 36 mol/L 17-80 Child Care Attendant ID - ADMINPOCT-GLUCOSE [id number] 20:45:00 Test Item Value Reference Range Interpretation Comments POC-GLUCOSE METER 95 mg/dL 70-110 : TESTED A T [facility] [address] (BEAKER) (test code = [address], 1538) [facility] [address]: Child Care Attendant/Techni artemio ID = [id number] for Anne Busby POCT-GLUCOSE [id number] 17:08:00 Test Item Value Reference Range Interpretation Comments POC-GLUCOSE METER 107 mg/dL 70-110 : TESTED A T [facility] [address] (BEAKER) (test code [address], = 1538) [place] [address]: Child Care Attendant/Techni artemio ID = [id number] for Jordyn Fonseca POCT-GLUCOSE [id number] 11:55:00 Test Item Value Reference Range Interpretation Comments POC-GLUCOSE METER 135 mg/dL 70-110 H : TESTED A T [facility] [address] (BEAKER) (test code [address], = 1538) [place] [address]: Child Care Attendant/Techni artemio ID = [id number] for Jordyn Fonseca Anti-Nuclear Antibody (ROGER)2019-12-22 11:40:00 Test Item Value Reference Range Interpretation Comments ROGER (test code = 95923-4) Positive Negative A ZIA (test code = ZIA) Test performed by IFA method. Lab Interpretation (test Abnormal code = 88099-2) [facility] CenterANA Titer & [id number] 11:40:00 Test Item Value Reference Range Interpretation Comments ROGER Titer (test code = 66097-6) 1:40 ROGER Pattern (test code = 1781) Speckled [facility] CenterAnti-Nuclear Antibody (ROGER)2019-12-22 11:40:00 Test Item Value Reference Range Interpretation Comments ROGER (test code = 36038-1) Positive Negative A ZIA (test code = ZIA) Test performed by IFA method. Lab Interpretation (test Abnormal code = 16183-0) [facility] CenterANA Titer & [id number] 11:40:00 Test Item Value Reference Range Interpretation Comments ROGER Titer (test code = 77707-0) 1:40 ROGER Pattern (test code = 1781) Speckled [facility] CenterANTI-NUCLEAR ANTIBODY (ROGER)2019-12-22 11:40:00 Test Item Value Reference Range Interpretation Comments ANTI-NUCLEAR ANTIBODY (ROGER) (BEAKER) Positive Negative A (test code = 418) Test performed by IFA method.ROGER TITER AND [id number] 11:40:00 Test Item Value Reference Range Interpretation Comments ROGER TITER (BEAKER) (test code = :40 1541) ROGER PATTERN (BEAKER) (test code = Speckled 1781) POCT-GLUCOSE [id number] 06:44:00 Test Item Value Reference Range Interpretation Comments POC-GLUCOSE METER 92 mg/dL 70-110 : TESTED A T [address] (BEAKER) (test code = [address], 1538) [facility] [place] [address]: Child Care Attendant/Techni artemio ID = [id number] for Anne Busby COMPREHENSIVE METABOLIC [id number] 06:35:00 Test Item Value Reference Range Interpretation [...] S NOT APPLICABLE FOR DIALYSIS PATIEN TS. Child Care Attendant ID - ADMINCBC W/PLT COUNT & AUTO [id number] 06:16:00 Test Item Value Reference Range Interpretation [...] PERCENT (BEAKER) (test code = 2801) POCT-GLUCOSE [id number] 20:38:00 Test Item Value Reference Range Interpretation Comments POC-GLUCOSE METER 85 mg/dL 70-110 : TESTED A T [address] (BEAKER) (test code = [address], 1538) [place] [address]: Child Care Attendant/Techni artemio ID = [id number] for Anne Busby POCT-GLUCOSE [id number] 18:14:00 Test Item Value Reference Range Interpretation Comments POC-GLUCOSE METER 112 mg/dL 70-110 H : TESTED A T [address] (BEAKER) (test code [address], = 1538) [place] [address]: Child Care Attendant/Techni artemio ID = [id number] for Christina r, Berta POCT-GLUCOSE [id number] 13:00:00 Test Item Value Reference Range Interpretation Comments POC-GLUCOSE METER 77 mg/dL 70-110 : TESTED A T [address] (BEAKER) (test code = [address], 1538) [place] [address]: Child Care Attendant/Techni artemio ID = [id number] for Christina r, Berta POCT-GLUCOSE [id number] 07:32:00 Test Item Value Reference Range Interpretation Comments POC-GLUCOSE METER 60 mg/dL 70-110 L : TESTED A T [address] (BEAKER) (test code = [address], 1538) [place] [address]: Child Care Attendant/Techni artemio ID = [id number] for Marissa Page COMPREHENSIVE METABOLIC [id number] 06:11:00 Test Item Value Reference Range Interpretation [...] S NOT APPLICABLE FOR DIALYSIS PATIEN TS. Child Care Attendant ID - ADMINC-Reactive [id number] 06:06:00 Test Item Value Reference Range Interpretation Comments CRP (test code = 676) 1.63 mg/dL 0-0.5 H ZIA (test code = ZIA) Child Care Attendant ID - ADMIN Lab Interpretation (test Abnormal code = 10317-4) [facility] CenterC-Reactive [id number] 06:06:00 Test Item Value Reference Range Interpretation Comments CRP (test code = 676) 1.63 mg/dL 0-0.5 H ZIA (test code = ZIA) Child Care Attendant ID - ADMIN Lab Interpretation (test Abnormal code = 95731-6) [facility] CenterC-REACTIVE [id number] 06:06:00 Test Item Value Reference Range Interpretation Comments C-REACTIVE PROTEIN (BEAKER) (test 1.63 mg/dL 0.00-0.50 H code = 676) Child Care Attendant ID - ADMINPOCT-GLUCOSE [id number] 06:04:00 Test Item Value Reference Range Interpretation Comments POC-GLUCOSE METER 56 mg/dL 70-110 L : Notified RN/MD: TESTED (BEAKER) (test code = AT [address]LS [address]) [facility] [address]: Child Care Attendant/Techni artemio ID = [id number] for Nelda Abdi CBC W/PLT COUNT & AUTO [id number] 05:53:00 Test Item Value Reference Range Interpretation [...] (BEAKER) (test code = 2801) U/S, ABDOMINAL, [id number] 22:02:00Reason for exam:->thrombocytopenia / eval for hepatosplenomegalyFINAL [...] MDReport Verified Date/Time: 12/20/2019 22:02:21 US abdomen [id number] 22:02:00Interface, External Ris In - 12/20/2019 10:04 [...] Hever Marin MDReport Verified Date/Time: 12/20/2019 22:02:21 [facility]US [facility] [id number] 22:02:00Interface, External Ris In - 12/20/2019 10:04 [...] Signed: Hever Marin MDReport Verified Date/Time:12/20/2019 22:02:21 [facility] CenterPOCT-GLUCOSE [id number] 20:36:00 Test Item Value Reference Range Interpretation Comments POC-GLUCOSE METER 74 mg/dL 70-110 : Notified RN/MD: [facility] (test code = AT [address]LS [address]) [facility] [address]: Child Care Attendant/Techni artemio ID = [id number] for Nelda Abdi POCT-GLUCOSE [id number] 17:50:00 Test Item Value Reference Range Interpretation Comments POC-GLUCOSE METER 72 mg/dL 70-110 : TESTED A T [facility] 1317 ([facility]) (test code = [address] [facility], 1538) [facility] [address]: Child Care Attendant/Techni artemio ID = [id number] for Berta Servin CT, BRAIN, WITHOUT [id number] 16:08:00Unlisted Reason for Exam - Click Yes [...] Date/Time: 12/20/2019 16:08:40 CT brain without IV [id number] 16:08:00Interface, External Ris In - 12/20/2019 4:10 [...] Signed: Berta Muniz Verified Date/Time: 12/20/2019 16:08:40 [facility] CenterCT [facility] without IV [id number] 16:08:00 Interface, External Ris In - 12/20/2019 [...] recommended for further characterization. Signed: Berta Muniz [facility] Verified Date/Time: 12/20/2019 16:08:40 [facility] CenterRAD, FOOT, 2 VIEWS, LEFT 2019-12-20 [...] MDReport Verified Date/Time: 12/20/2019 15:15:25 Reading Location: [facility] Radiology Reading Room , FOOT, 2 VIEWS, [id number] 15:15:00Reason for exam:->Rule out osteomyelitisShould this be [...] MDReport Verified Date/Time: 12/20/2019 15:15:25 Reading Location: [facility] Radiology Reading Room XR foot 2 views [id number] 15:15:00Interface, External Ris In - 12/20/2019 3:17 [...] MDReport Verified Date/Time: 12/20/2019 15:15:25 Reading Location: [facility] Radiology Reading Room [facility] CenterXR foot 2 views [id number] 15:15:00Interface, External Ris In - 12/20/2019 3:17 [...] MDReport Verified Date/Time: 12/20/2019 15:15:25 Reading Location: [facility] Radiology Reading Room [facility] CenterXR foot 2 views [id number] 15:15:00Interface, External Ris In - 12/20/2019 3:17 [...] MDReport Verified Date/Time: 12/20/2019 15:15:25 Reading Location: [facility] Radiology Reading Room [facility] CenterXR foot 2 views [id number] 15:15:00Interface, External Ris In - 12/20/2019 3:17 [...] MDReport Verified Date/Time: 12/20/2019 15:15:25 Reading Location: [facility] Radiology Reading Room [facility] [id number] 14:56:00 Test Item Value Reference Range Interpretation Comments AMMONIA (BEAKER) (test code = 348) 33 mol/L 17-80 Child Care Attendant ID - ADMINBlood gas, [id number] 14:41:00 Test Item Value Reference Range Interpretation Comments pH, Arterial (test code 7.33 7.35-7.45 L = 2744-1) pCO2, Arterial (test 58 See_Comment H [Autom ated message] code = 2019-8) The system Quartzy generated this result transmit merna reference range : 35 - 45 mmHg. The reference range was not used to interpret this result as normal/abnormal . pO2, Arterial (test 109 See_Comment H [Automa merna message] code = 2703-7) The system Quartzy generated this result transmit merna reference range [...] % Lab Interpretation Abnormal (test code = 49156-4) [facility], [id number] 14:41:00 Test Item Value Reference Range Interpretation Comments pH, Arterial (test code 7.33 7.35-7.45 L = 2744-1) pCO2, Arterial (test 58 See_Comment H [Autom ated message] code = 2019-8) The system Quartzy generated this result transmit merna reference range : 35 - 45 mmHg. The reference range was not used to interpret this result as normal/abnormal . pO2, Arterial (test 109 See_Comment H [Automa merna message] code = 2703-7) The system Quartzy generated this result transmit merna reference range [...] % Lab Interpretation Abnormal (test code = 42817-3) [facility] CenterBLOOD GAS, [id number] 14:41:00 Test Item Value Reference Range Interpretation [...] code = 1819) 32.0 % Occult blood, [id number] 11:56:00 Test Item Value Reference Range Interpretation Comments Occult blood (test code = 2335-8) Negative Negative Lab Interpretation (test code = Normal 91392-3) [facility] CenterOccult blood, [id number] 11:56:00 Test Item Value Reference Range Interpretation Comments Occult blood (test code = 2335-8) Negative Negative Lab Interpretation (test code = Normal 13460-4) [facility] CenterOCCULT BLOOD, [id number] 11:56:00 Test Item Value Reference Range Interpretation Comments FECAL OCCULT BLOOD (BEAKER) (test Negative Negative code = 618) POCT-GLUCOSE [id number] 11:39:00 Test Item Value Reference Range Interpretation Comments POC-GLUCOSE METER 88 mg/dL 70-110 : TESTED A T [address] (BEAKER) (test code = [address], [address]) [facility] [address]: Child Care Attendant/Techni artemio ID = [id number] for Sandra claire Gifty Gtsubymftqt5366-26-04 11:22:00 Test Item Value Reference Range Interpretation Comments Haptoglobin (test code = <8 14-258 L 4542-7) ZIA (test code = ZIA) Child Care Attendant ID - LEONIE F Lab Interpretation (test Abnormal code = 55284-0) [facility] CenterHaptoglobin2020-09-21 11:22:00 Test Item Value Reference Range Interpretation Comments Haptoglobin (test code = <8 14-258 L 4542-7) ZIA (test code = ZIA) Child Care Attendant ID - LEONIE F Lab Interpretation (test Abnormal code = 13978-4) [facility] CenterHAPTOGLOBIN2020-09-21 11:22:00 Test Item Value Reference Range Interpretation Comments HAPTOGLOBIN (BEAKER) (test code = < mg/dL 14-258 L 366) Child Care Attendant ID - LEONIE FT4, [id number] 11:01:00 Test Item Value Reference Range Interpretation Comments Free T4 (test code = 0.52 ng/dL 0.9-1.8 L 3024-7) ZIA (test code = ZIA) Child Care Attendant ID - ADMIN Lab Interpretation (test Abnormal code = 93085-0) [facility] CenterT4, [id number] 11:01:00 Test Item Value Reference Range Interpretation Comments Free T4 (test code = 0.52 ng/dL 0.9-1.8 L 3024-7) ZIA (test code = ZIA) Child Care Attendant ID - ADMIN Lab Interpretation (test Abnormal code = 13215-9) [facility] CenterT4, [id number] 11:01:00 Test Item Value Reference Range Interpretation Comments FREE T4 (BEAKER) (test code = 655) 0.52 ng/dL 0.90-1.80 L Child Care Attendant ID - ADMINPeripheral Blood Smear - Path [id number] 08:19:00 Test Item Value Reference Range Interpretation Comments RBC Morphology Target CellsBasophilic (test code = 2846) StipplingNucleated Red Blood Cells Pathologist Review Normochromic normocytic (test code = 2640) anemia with a few target cells, nucleated RBCs and basophilic stippling. No increase in schistocytes. WBCs normal in number and morphology. Thrombocytopenia with normal platelet morphology. Pathologist: (waldo Griffith M.D. code = 2849) (electronic signature) [facility] CenterPeripheral Blood Smear - Path [id number] 08:19:00 Test Item Value Reference Range Interpretation [...] Griffith M.D. code = 2849) (electronic signature) [facility] CenterPERIPHERAL BLOOD SMEAR - PATHOLOGIST REVIEW 2019-12-20 08:19:00 Test Item Value Reference Range Interpretation Comments RBC MORPHOLOGY Target Cells (BEAKER) (test code = 2846) RBC MORPHOLOGY Basophilic Stippling (BEAKER) (test code = 97503) RBC MORPHOLOGY Nucleated Red Blood Cells (BEAKER) (test code = 20957) PERIPHERAL SMR Normochromic normocytic REVIEW (BEAKER) anemia with a few target (test code = 2640) cells, nucleated RBCs and basophilic stippling. No increase in schistocytes. WBCs normal in number and morphology. Thrombocytopenia with normal platelet morphology. DVIS-UIEIFJOQBGN-580 Jovita Griffith M.D. 2 (BEAKER) (test (electronic signature) code = 2849) Vitamin B12 and [id number] 06:37:00 Test Item Value Reference Range Interpretation Comments Vitamin B12 (test 1431 pg/mL 211-911 H code = 2132-9) Folate (test code = 17.00 ng/mL See_Comment [Automa merna 2284-8) message] The system which generated this result transmit merna reference range : >=5.4. The reference range was not used to interpret this result as normal/abnormal . ZIA (test code = ZIA) Child Care Attendant ID - ADMIN Lab Interpretation Abnormal (test code = 06934-0) [facility] CenterVitamin B12 and [id number] 06:37:00 Test Item Value Reference Range Interpretation Comments Vitamin B12 (test 1431 pg/mL 211-911 H code = 2132-9) Folate (test code = 17.00 ng/mL See_Comment [Automa merna 2284-8) message] The system which generated this result transmit merna reference range : >=5.4. The reference range was not used to interpret this result as normal/abnormal . ZIA (test code = ZIA) Child Care Attendant ID - ADMIN Lab Interpretation Abnormal (test code = 16602-4) [facility] CenterVITAMIN B12 AND [id number] 06:37:00 Test Item Value Reference Range Interpretation Comments VITAMIN B12 (BEAKER) (test code = 1431 pg/mL 211-911 H 774) FOLATE (BEAKER) (test code = 362) 17.00 ng/mL >=5.4 Child Care Attendant ID - ADMINPOCT-GLUCOSE [id number] 06:32:00 Test Item Value Reference Range Interpretation Comments POC-GLUCOSE METER 79 mg/dL 70-110 : TESTED A T [address] (BEAKER) (test code = [address], 15[address]) [facility] [place] [address]: Child Care Attendant/Techni artemio ID = [id number] for Anahi Sherman [id number] 06:25:00 Test Item Value Reference Range Interpretation Comments Ferritin (test code = 595.00 ng/mL 10-291 H 2276-4) ZIA (test code = ZIA) Child Care Attendant ID - ADMIN Lab Interpretation (test Abnormal code = 51226-7) [facility] CenterTSH/Free T4 If Zaqvdslqg1327-64-28 06:25:00 Test Item Value Reference Range Interpretation Comments TSH (test code = 21.210 See_Comment H [Automated 74923-5) message] The system which generated this result transmit merna reference range : 0.350 - 5.500 uIU/mL. The reference range was not used to interpret this result as normal/abnormal . ZIA (test code = ZIA) Child Care Attendant ID - ADMIN Lab Interpretation Abnormal (test code = 88235-6) [facility] CenterFerritin2020-09-21 06:25:00 Test Item Value Reference Range Interpretation Comments Ferritin (test code = 595.00 ng/mL 10-291 H 2276-4) ZIA (test code = ZIA) Child Care Attendant ID - ADMIN Lab Interpretation (test Abnormal code = 64434-8) [facility] CenterTS/Free T4 If Nacbxvnkm6719-31-58 06:25:00 Test Item Value Reference Range Interpretation Comments TSH (test code = 21.210 See_Comment H [Automated 87238-8) message] The system which generated this result transmit merna reference range : 0.350 - 5.500 uIU/mL. The reference range was not used to interpret this result as normal/abnormal . ZIA (test code = ZIA) Child Care Attendant ID - ADMIN Lab Interpretation Abnormal (test code = 67773-9) [facility] CenterFERRITIN2020-09-21 06:25:00 Test Item Value Reference Range Interpretation Comments FERRITIN (BEAKER) (test code = 595.00 ng/mL 10.00-291.00 H 361) Child Care Attendant ID - ADMINTSH/FREE T4 IF [id number] 06:25:00 Test Item Value Reference Range Interpretation Comments THYROID STIMULATING HORMONE 21.210 uIU/mL 0.350-5.500 H (BEAKER) (test code = 772) Child Care Attendant ID - KTMETIjrjhsmala9765-14-59 06:06:00 Test Item Value Reference Range Interpretation Comments Fibrinogen (test code = 340 mg/dL 851-864 0413-7) ZIA (test code = ZIA) Final Information (Auto Output) Lab Interpretation (test Normal code = 40419-2) [facility] CenterPT/[id number] 06:06:00 Test Item Value Reference Interpretation Comments Range Protime (test code = 13.5 See_Comment H [Autom ated 5902-2) message] The system which generated this result transmitted reference range : 9.3 - 12.0 sec. The reference range was not used to interpret this result as normal/abnormal . INR (test code = 1.25 See_Comment [Automated 9171-6) message] The system which generated this result transmitted reference range : <=5.90. The reference range was not used to interpret this result as normal/abnormal . PTT (test code = 38.2 See_Comment H [Automated 65507-0) message] The system which generated this result [...] Output) Lab Interpretation Abnormal (test code = 62620-6) [facility] CenterFibrinogen2020-09-21 06:06:00 Test Item Value Reference Range Interpretation Comments Fibrinogen (test code = 340 mg/dL 694-657 3894-7) ZIA (test code = ZIA) Final Information (Auto Output) Lab Interpretation (test Normal code = 46794-6) [facility] CenterPT/[id number] 06:06:00 Test Item Value Reference Interpretation Comments Range Protime (test code = 13.5 See_Comment H [Autom ated 5902-2) message] The system which generated this result transmitted reference range : 9.3 - 12.0 sec. The reference range was not used to interpret this result as normal/abnormal . INR (test code = 1.25 See_Comment [Automated 7931-6) message] The system which generated this result transmitted reference range : <=5.90. The reference range was not used to interpret this result as normal/abnormal . PTT (test code = 38.2 See_Comment H [Automated 63311-4) message] The system which generated this result [...] Output) Lab Interpretation Abnormal (test code = 02952-1) [facility] CenterFIBRINOGEN2020-09-21 06:06:00 Test Item Value Reference Range Interpretation Comments FIBRINOGEN LEVEL (BEAKER) (test 340 mg/dL 200-400 code = 658) Final Information (Auto Output)PT/[id number] 06:06:00 Test Item Value Reference Range Interpretation [...] = 2502-3) ZIA (test code = ZIA) Child Care Attendant ID - ADMIN Lab Interpretation (test Abnormal code = 48202-3) [facility] CenterIron, TIBC, % sat. (without ferritin)2019-12-20 05:59:00 Test Item Value Reference Range Interpretation Comments Iron (test code = 2498-4) 92.0 ug/dL 45-170 TIBC (test code = 2500-7) 151 ug/dL 250-550 L Iron % Saturation (test 61 % 20-55 H code = 2502-3) ZIA (test code = ZIA) Child Care Attendant ID - ADMIN Lab Interpretation (test Abnormal code = 97923-8) [facility], [facility], % SAT. (WITHOUT FERRITIN)2019-12-20 05:59:00 Test Item Value Reference Range Interpretation Comments IRON (BEAKER) (test code = 547) 92.0 ug/dL 45.0-170.0 TOTAL IRON BINDING CAPACITY 151 ug/dL 250-550 L (BEAKER) (test code = 769) IRON % SATURATION (2) (BEAKER) 61 % 20-55 H (test code = 2590) Child Care Attendant ID - ADMINCOMPREHENSIVE METABOLIC [id number] 05:55:00 Test Item Value Reference Range Interpretation [...] S NOT APPLICABLE FOR DIALYSIS PATIEN TS. Child Care Attendant ID - OSECRJ-nhixm3736-64-21 05:46:00 Test Item Value Reference Range Interpretation Comments D-Dimer, Quant (test 1.09 mg/L <0.50 H code = 16604-0) ZIA (test code = ZIA) REGARDING D-DIMER RESULTS: The 98% NPV (Negative Predictive Value) for DVT/PE exclusion is 0.50 mg/L FEU as suggested by the history tutor and as approved by the FDA.Final Information (Auto Output) Lab Interpretation (test Abnormal code = 00939-4) [facility] CenterD-rynxb4176-45-27 05:46:00 Test Item Value Reference Range Interpretation Comments D-Dimer, Quant (test 1.09 mg/L <0.50 H code = 76199-2) ZIA (test code = ZIA) REGARDING D-DIMER RESULTS: The 98% NPV (Negative Predictive Value) for DVT/PE exclusion is 0.50 mg/L FEU as suggested by the history tutor and as approved by the FDA.Final Information (Auto Output) Lab Interpretation (test Abnormal code = 80759-6) [facility] CenterD-QRLZA9030-11-10 05:46:00 Test Item Value Reference Range Interpretation Comments D-DIMER QUANTITATIVE (BEAKER) (test 1.09 mg/L <0.50 H code = 671) REGARDING D-DIMER RESULTS: The 98% NPV (Negative Predictive Value) for DVT/PE exclusion is 0.50 mg/LFEU as suggested by the history tutor and as approved by the FDA.Final Information (Auto Output)Reticulocyte [id number] 05:42:00 Test Item Value Reference Range Interpretation Comments % Retic (test code = 28840-1) 5.9 % 0.4-2.9 H Lab Interpretation (test code = Abnormal 87559-7) [facility] CenterReticulocyte bbolk1956-83-00 05:42:00 Test Item Value Reference Range Interpretation Comments % Retic (test code = 60894-8) 5.9 % 0.4-2.9 H Lab Interpretation (test code = Abnormal 31391-5) [facility] CenterRETICULOCYTE [id number] 05:42:00 Test Item Value Reference Range Interpretation Comments RETICULOCYTE COUNT PCT (BEAKER) (test 5.9 % 0.4-2.9 H code = 575) CBC W/PLT COUNT & AUTO [id number] 05:33:00 Test Item Value Reference Range Interpretation [...] U/L 107-206 ZIA (test code = ZIA) Child Care Attendant ID - ADMIN Lab Interpretation (test Normal code = 42173-4) [facility] CenterLactate dehydrogenase (LDH)2019-12-19 21:19:00 Test Item Value Reference Range Interpretation Comments LDH (test code = 2532-0) 178 U/L 107-206 ZIA (test code = ZIA) Child Care Attendant ID - ADMIN Lab Interpretation (test Normal code = 09472-5) [facility] CenterLACTATE DEHYDROGENASE (LDH)2019-12-19 21:19:00 Test Item Value Reference Range Interpretation Comments LACTATE DEHYDROGENASE (BEAKER) (test 178 U/L 107-206 code = 635) Child Care Attendant ID - ADMINPOCT-GLUCOSE [id number] 20:47:00 Test Item Value Reference Range Interpretation Comments POC-GLUCOSE METER 102 mg/dL 70-110 : TESTED A T [address] (BEAKER) (test code [address], = 1538) [facility] [address]: Child Care Attendant/Techni artemio ID = [id number] for Anahi Sherman POCT-GLUCOSE [id number] 16:18:00 Test Item Value Reference Range Interpretation Comments POC-GLUCOSE METER 96 mg/dL 70-110 : TESTED A T [address] (BEAKER) (test code = [address], 15[address]) [facility] 77 [address]: Child Care Attendant/Techni artemio ID = [id number] for Nalini Jean Baptiste Basic Metabolic [id number] 06:26:00 Test Item Value Reference Range Interpretation Comments Sodium (test code = 138 meq/L 218-547 2354-2) Potassium (test code = 3.9 meq/L 3.6-5.5 2823-3) Chloride (test code = 99 meq/L 98-106 2075-0) CO2 (test code = 30 meq/L 20-29 H 8-9) BUN (test code = 47 mg/dL 10-26 H 3094-0) Creatinine (test code 3.04 mg/dL 0.5-1.2 H = 2160-0) Glucose (test code = 82 mg/dL 70-110 2345-7) Calcium (test code = 7.9 mg/dL 8.5-10.5 L 54039-4) EGFR (test code = 15 mL/min/1.73 [place] [address]-0) NOT ACCURATE CREATININE CLEARANCE IN PREDICTING GLOMERULAR FILTRATION RATE . ESTIMATED GFR I S NOT APPLICABLE FOR DIALYSIS PATIENTS. ZIA (test code = ZIA) Child Care Attendant ID - ADMIN Lab Interpretation Abnormal (test code = 61027-6) [facility] CenterBasi Metabolic [id number] 06:26:00 Test Item Value Reference Range Interpretation Comments Sodium (test code = 138 meq/L 454-462 4834-2) Potassium (test code = 3.9 meq/L 3.6-5.5 2823-3) Chloride (test code = 99 meq/L 98-106 2075-0) CO2 (test code = 30 meq/L 20-29 H 2028-9) BUN (test code = 47 mg/dL 10-26 H 3094-0) Creatinine (test code 3.04 mg/dL 0.5-1.2 H = 2160-0) Glucose (test code = 82 mg/dL 70-110 2345-7) Calcium (test code = 7.9 mg/dL 8.5-10.5 L 94078-5) EGFR (test code = 15 mL/min/1.[place] [address]-4) NOT ACCURATE CREATININE CLEARANCE IN PREDICTING GLOMERULAR FILTRATION RATE . ESTIMATED GFR I S NOT APPLICABLE FOR DIALYSIS PATIENTS. ZIA (test code = ZIA) Child Care Attendant ID - ADMIN Lab Interpretation Abnormal (test code = 02305-0) [facility] CenterBASI METABOLIC [id number] 06:26:00 Test Item Value Reference Range Interpretation [...] S NOT APPLICABLE FOR DIALYSIS PATIEN TS. Child Care Attendant ID - ADMINCBC W/PLT COUNT & AUTO [id number] 06:04:00 Test Item Value Reference Range Interpretation [...] PERCENT (BEAKER) (test code = 2801) POCT-GLUCOSE [id number] 05:35:00 Test Item Value Reference Range Interpretation Comments POC-GLUCOSE METER 85 mg/dL 70-110 : Notified RN/MD: TESTED (BEAKER) (test code = [address]) [place] [address]: Child Care Attendant/Techni artemio ID = [id number] for Zonia Healy POCT-GLUCOSE [id number] 21:46:00 Test Item Value Reference Range Interpretation Comments POC-GLUCOSE METER 125 mg/dL 70-110 H : Notified RN/MD: [facility] (test code AT [address] = [address]38) [place] [address]: Child Care Attendant/Techni artemio ID = [id number] for Kekylee Zonia POCT-GLUCOSE [id number] 16:17:00 Test Item Value Reference Range Interpretation Comments POC-GLUCOSE METER 103 mg/dL 70-110 : TESTED A T [address] (BEAKER) (test code [address] [facility], = 1538) [place] [id number]: Child Care Attendant/Techni artemio ID = [id number] for Akhil rs, Shelea POCT-GLUCOSE [id number] 07:56:00 Test Item Value Reference Range Interpretation Comments POC-GLUCOSE METER 111 mg/dL 70-110 H : TESTED A T [address] (BEAKER) (test code [address] [facility], = 1538) [place] [address]: Child Care Attendant/Techni artemio ID = [id number] for Akhil rs, Shelea POCT-GLUCOSE [id number] 06:25:00 Test Item Value Reference Range Interpretation Comments POC-GLUCOSE METER 57 mg/dL 70-110 L : TESTED A T [address] (BEAKER) (test code = [address] [facility], 1538) [place] [address]: Child Care Attendant/Techni artemio ID = [id number] for Ashley austin Anne POCT-GLUCOSE [id number] 21:55:00 Test Item Value Reference Range Interpretation Comments POC-GLUCOSE METER 76 mg/dL 70-110 : TESTED A T [address] (BEAKER) (test code = [address], [address]) [place] [address]: Child Care Attendant/Techni artemio ID = [id number] for Anne Busby POCT-GLUCOSE [id number] 18:03:00 Test Item Value Reference Range Interpretation Comments POC-GLUCOSE METER 81 mg/dL 70-110 : TESTED A T [address] (BEAKER) (test code = [address], [address]) [place] [address]: Child Care Attendant/Techni artemio ID = [id number] for Ericka Daniel POCT-GLUCOSE [id number] 12:33:00 Test Item Value Reference Range Interpretation Comments POC-GLUCOSE METER 73 mg/dL 70-110 : TESTED A T [address] (BEAKER) (test code = [address], 1538) [place] [address]: Child Care Attendant/Techni artemio ID = [id number] for Marisela Bolton Hepatitis B surface [id number] 10:49:00 Test Item Value Reference Range Interpretation Comments Hep B S Ab (test code <8.0 See_Comment [Auto mated = 64904-3) message] The system which generated this result transmit merna reference range : <8.0 mIU/mL. Th e reference range was not used to interpret this result as normal/abnormal . ZIA (test code = ZIA) Child Care Attendant ID - LEONIE Jay Lab Interpretation Normal (test code = 83752-0) [facility] CenterHepatitis B surface [id number] 10:49:00 Test Item Value Reference Range Interpretation Comments Hep B S Ab (test code <8.0 See_Comment [Auto mated = 01092-2) message] The system which generated this result transmit merna reference range : <8.0 mIU/mL. Th e reference range was not used to interpret this result as normal/abnormal . ZIA (test code = ZIA) Child Care Attendant ID - LEONIE F Lab Interpretation Normal (test code = 38335-7) [facility] CenterHEPATITIS B SURFACE [id number] 10:49:00 Test Item Value Reference Range Interpretation Comments HEPATITIS B SURFACE ANTIBODY < mIU/mL <8.0 (BEAKER) (test code = 647) Child Care Attendant ID Bijal HADLEY FHepatitis B core antibody, [id number] 10:43:00 Test Item Value Reference Range Interpretation Comments Hep B Core Total Ab Nonreactive Nonreactive (test code = 11417-6) ZIA (test code = ZIA) Child Care Attendant [facility] Lab Interpretation (test Normal code = 01331-0) [facility] C [id number] 10:43:00 Test Item Value Reference Range Interpretation Comments Hepatitis C Ab (test Nonreactive Nonreactive code = 46478-6) ZIA (test code = ZIA) Child Care Attendant [facility] Lab Interpretation (test Normal code = 20610-1) [facility]He[facility] B core antibody, [id number] 10:43:00 Test Item Value Reference Range Interpretation Comments Hep B Core Total Ab Nonreactive Nonreactive (test code = 51357-6) ZIA (test code = ZIA) Child Care Attendant [facility] Lab Interpretation (test Normal code = 51393-9) [facility] C [id number] 10:43:00 Test Item Value Reference Range Interpretation Comments Hepatitis C Ab (test Nonreactive Nonreactive code = 23784-5) ZIA (test code = ZIA) Child Care Attendant [facility] Lab Interpretation (test Normal code = 34955-2) [facility] C [id number] 10:43:00 Test Item Value Reference Range Interpretation Comments HEPATITIS C ANTIBODY (BEAKER) Nonreactive Nonreactive (test code = 367) Child Care Attendant [facility] FHEPATITIS B CORE ANTIBODY, [id number] 10:43:00 Test Item Value Reference Range Interpretation Comments HEPATITIS B CORE TOTAL ANTIBODY Nonreactive Nonreactive (BEAKER) (test code = 497) Child Care Attendant ID [facility] FPOCT-GLUCOSE [id number] 06:31:00 Test Item Value Reference Range Interpretation Comments POC-GLUCOSE METER 67 mg/dL 70-110 L : TESTED A T [address] (BEAKER) (test code = [address], [address]) [facility] [place] [address]: Child Care Attendant/Techni artemio ID = [id number] for Anne Busby COMPREHENSIVE METABOLIC [id number] 05:10:00 Test Item Value Reference Range Interpretation [...] S NOT APPLICABLE FOR DIALYSIS PATIEN TS. Child Care Attendant ID - ADMINCBC W/PLT COUNT & AUTO [id number] 04:36:00 Test Item Value Reference Range Interpretation [...] PERCENT (BEAKER) (test code = 2801) POCT-GLUCOSE [id number] 21:14:00 Test Item Value Reference Range Interpretation Comments POC-GLUCOSE METER 79 mg/dL 70-110 : TESTED A T [address] (BEAKER) (test code = [address], [address]) [facility] [address]: Child Care Attendant/Techni artemio ID = [id number] for Ashley austin Anne POCT-GLUCOSE [id number] 18:35:00 Test Item Value Reference Range Interpretation Comments POC-GLUCOSE METER 68 mg/dL 70-110 L : Notified RN/MD: TESTED (ROBERT) (test code = AT [facility] [address]) [place] [address]: Child Care Attendant/Techni artemio ID = [id number] for Alondra Kelley SARS-COV2/RT-PCR ([facility])2019-12-16 17:53:00 Test Item Value Reference Range Interpretation Comments SARS-COV2/RT-PCR (test Negative Not Detected, Negative, code = 0781641) See external report for linked test SARS-COV-2 PERFORMING LAB [facility] (test code = 9529388) Negative result for this test determines that [...] 564(g) of the Act.Fact Sheet for Healthcare Providers:https://www.[employer].com/sites/default/files/product/documents/Fact_Troy ortizn_LT_Wnpawjqnb_Ptlf_ZFWB-FrL-7.pdfFact Sheet for Healthcare Patients:https://www.[employer].simfy/sites/default/files/product/ documents/Ilha_Owkkf_Mrrrzglp_Fufl_JAKV-XuJ-4.pdfPerforming Laboratory:[facility], [place] [address]Sxtxwknio B surface [id number] 16:57:00 Test Item Value Reference Range Interpretation Comments HBsAg Screen (test code = Nonreactive Nonreactive 5195-3) ZIA (test code = ZIA) Child Care Attendant ID - ADMIN Lab Interpretation (test Normal code = 01220-2) [facility] B surface [id number] 16:57:00 Test Item Value Reference Range Interpretation Comments HBsAg Screen (test code = Nonreactive Nonreactive 5195-3) ZIA (test code = ZIA) Child Care Attendant ID - ADMIN Lab Interpretation (test Normal code = 96604-1) [facility] B SURFACE [id number] 16:57:00 Test Item Value Reference Range Interpretation Comments HEPATITIS B SURFACE ANTIGEN (2) Nonreactive Nonreactive (BEAKER) (test code = 2585) Child Care Attendant ID - ADMINANG, TUNNELED CATHETER [id number] 15:06:00Reason for Central Line/PICC?->Need for hemodialysis accessReason [...] the patient's medical record by the nurse. Lockstitch Back Maker: Soto Arias M.D. Detailer Furniture: none. Approach: Right internal jugular vein Estimated [...] needle into the right atrium. A 4 [place] micropuncture sheath was placed and a 0.035 wire was advanced into the IVC. A subcutaneous tunnel was created in the left anterior chest wall by blunt dissection. A 23 cm tip to cuff 15.5 [place] Islander Duraflow 2 catheter was brought through the [...] Arias MDReport Verified Date/Time: 12/16/2019 15:06:45Reading Location: [facility] Radiology Reading Room IR Tunneled Catheter [id number] 15:06:00 Interface, External Ris In - 12/16/2019 [...] the patient's medical record by the nurse. Lockstitch Back Maker: Roberto Carlos Carroll istant: none. Approach: Right [...] A 23 cm tip to cuff 15.5 [place] Island[place] Duraflow 2 catheter was brought through the [...] MDReport Verified Date/Time: 12/16/2019 15:06:45 Reading Location: [facility] Radiology [facility] 2019-12-16 15:06:00Interface, [...] the patient's medical record by the nurse. Lockstitch Back Maker: Soto Arias M.D. Detailer Furniture: none. Approach: Right internal jugular vein Estimated [...] A 23 cm tip to cuff 15.5 [place] Island[place] Duraflow 2 catheter was brought through the [...] MDReport Verified Date/Time: 12/16/2019 15:06:45 Reading Location: [facility] Radiology Reading Room [facility] [id number] 14:59:00 Test Item Value Reference Range Interpretation Comments POC-GLUCOSE METER 70 mg/dL 70-110 : Notified RN/MD: TESTED (ROBERT) (test code = AT [facility] [address] [facility] [place] 1538) [facility] [address]: Child Care Attendant/Techni artemio ID = [id number] for Repa julio, Alondra POCT-GLUCOSE [id number] 11:13:00 Test Item Value Reference Range Interpretation Comments POC-GLUCOSE METER 72 mg/dL 70-110 : Notified RN/MD: TESTED ([facility]) (test code = AT [facility] L [address] [place] [address]) [facility] [address]: Child Care Attendant/Techni artemio ID = [id number] for Repa julio, Alondra RAD, CHEST, 1 VIEW, NON [id number] 09:20:00Reason for exam:->fallShould this be performed at [...] MDReport Verified Date/Time: 12/16/2019 09:20:06 Reading Location: [facility] Radiology Reading Room XR chest 1 view portable / [id number] 09:20:00Interface, External Ris In - 12/16/2019 9:22 [...] MDReport Verified Date/Time: 12/16/2019 09:20:06 Reading Location: [facility] Radiology Reading Room Electronically yeimi d by: SOTO ARIAS MD on 12/16/2019 09:20 [facility] XR chest 1 view portable / [id number] 09:20:00Interface, External Ris In - 12/16/2019 9:22 [...] MDReport Verified Date/Time: 12/16/2019 09:20:06 Reading Location: [facility] Radiology [facility] 2019-12-16 06:03:00 Test Item Value Reference Range Interpretation Comments POC-GLUCOSE METER 74 mg/dL 70-110 : Notified RN/MD: TESTED (BEAKER) (test code = AT [facility] [address] [place] [address]) [facility] [address]: Child Care Attendant/Techni artemio ID = [id number] for Zonia Healy BASIC METABOLIC [id number] 05:08:00 Test Item Value Reference Range Interpretation [...] S NOT APPLICABLE FOR DIALYSIS PATIEN TS. Child Care Attendant ID - ADMINProthrombin time/[id number] 05:01:00 Test Item Value Reference Interpretation Comments Range Protime (test code = 14.1 See_Comment H [Autom ated 5902-2) message] The system which generated this result transmitted reference range : 9.3 - 12.0 sec. The reference range was not used to interpret this result as normal/abnormal . INR (test code = 1.31 See_Comment [Automated 1521-6) message] The system which generated this result [...] Output) Lab Interpretation Abnormal (test code = 30917-8) [facility] CenterProthrombin time/[id number] 05:01:00 Test Item Value Reference Interpretation Comments Range Protime (test code = 14.1 See_Comment H [Autom ated 5902-2) message] The system which generated this result transmitted reference range : 9.3 - 12.0 sec. The reference range was not used to interpret this result as normal/abnormal . INR (test code = 1.31 See_Comment [Automated 9311-6) message] The system which generated this result [...] Output) Lab Interpretation Abnormal (test code = 59291-8) [facility] CenterPROTHROMBIN TIME/[id number] 05:01:00 Test Item Value Reference Range Interpretation [...] Information (Auto Output)CBC W/PLT COUNT & AUTO [id number] 04:46:00 Test Item Value Reference Range Interpretation [...] PERCENT (BEAKER) (test code = 2801) POCT-GLUCOSE [id number] 17:13:00 Test Item Value Reference Range Interpretation Comments POC-GLUCOSE METER 220 mg/dL 70-110 H TESTED AT [facility] [address] (BEAKER) (test code = [place]IANO [place] 1538) [address] BASIC METABOLIC [id number] 15:47:00 Test Item Value Reference Range Interpretation [...] NOT APPLICABLE FOR DIALYSIS PATIEN TS. POCT-GLUCOSE [id number] 11:30:00 Test Item Value Reference Range Interpretation Comments POC-GLUCOSE METER 268 mg/dL 70-110 H TESTED AT [facility] [address] (BEAKER) (test code = [facility] Dylon [place] 1538) [address] POCT-GLUCOSE [id number] 07:08:00 Test Item Value Reference Range Interpretation Comments POC-GLUCOSE METER 208 mg/dL 70-110 H TESTED AT [facility] 67[address] (BEAKER) (test code = [facility] [place] 1538) [address] CALCIUM, [id number] 06:47:00 Test Item Value Reference Range Interpretation Comments CALCIUM IONIZED (BEAKER) (test 1.11 mmol/L 1.12-1.27 L code = 698) PH, BLOOD (BEAKER) (test code = 7.40 1810) BASIC METABOLIC [id number] 06:40:00 Test Item Value Reference Range Interpretation [...] S NOT APPLICABLE FOR DIALYSIS PATIEN TS. [id number] 06:33:00 Test Item Value Reference Range Interpretation Comments PHOSPHORUS (BEAKER) (test code = 5.1 mg/dL 2.3-4.7 H 604) [id number] 06:33:00 Test Item Value Reference Range Interpretation Comments MAGNESIUM (BEAKER) (test code = 2.0 mg/dL 1.6-2.6 627) LACTIC ACID, VENOUS, WHOLE [id number] 06:02:00 Test Item Value Reference Range Interpretation Comments LACTATE BLOOD VENOUS (2) (BEAKER) 0.8 mmol/L 0.5-2.2 (test code = 2872) Effective 08/02/2015: Units/Reference Range ChangeNew: 0.5-2.2 mmol/L Previous: 5-20 mg/dLCBC W/PLT COUNT & AUTO [id number] 05:54:00 Test Item Value Reference Range Interpretation [...] PERCENT (BEAKER) (test code = 2801) POCT-GLUCOSE [id number] 21:30:00 Test Item Value Reference Range Interpretation Comments POC-GLUCOSE METER 248 mg/dL 70-110 H TESTED AT [facility] (test code = JULIANO Osborne [facility] 1538) [address] RAD, [id number] 21:22:00Reason for exam:->fall, tailbone painFINAL REPORT RAD, [...] Connor Verified Date/Time: 09/04/2017 21:22:03 Reading Location: [address] Reading Room POCT-GLUCOSE [id number] 17:37:00 Test Item Value Reference Range Interpretation Comments POC-GLUCOSE METER 222 mg/dL 70-110 H TESTED AT [place] [address] ([facility] (test code = JULIANO Osborne [facility] 1538) [address] POCT-GLUCOSE [id number] 13:55:00 Test Item Value Reference Range Interpretation Comments POC-GLUCOSE METER 194 mg/dL 70-110 H TESTED AT [place] [address] ([facility]) (test code = [facility] [place] [facility] 1538) [address] POCT-GLUCOSE [id number] 12:34:00 Test Item Value Reference Range Interpretation Comments POC-GLUCOSE METER 229 mg/dL 70-110 H TESTED AT [place] [address] ([facility]) (test code = [facility] 1538) [address] POCT-GLUCOSE [id number] 08:00:00 Test Item Value Reference Range Interpretation Comments POC-GLUCOSE METER 159 mg/dL 70-110 H TESTED AT [place] [address] ([facility]) (test code = [facility] [place] [facility] 1538) [address] CALCIUM, [id number] 06:00:00 Test Item Value Reference Range Interpretation Comments CALCIUM IONIZED (BEAKER) (test 1.05 mmol/L 1.12-1.27 L code = 698) PH, BLOOD (BEAKER) (test code = 7.45 1810) [id number] 05:59:00 Test Item Value Reference Range Interpretation Comments PHOSPHORUS (BEAKER) (test code = 4.8 mg/dL 2.3-4.7 H 604) [id number] 05:59:00 Test Item Value Reference Range Interpretation Comments MAGNESIUM (BEAKER) (test code = 2.0 mg/dL 1.6-2.6 627) BASIC METABOLIC [id number] 05:59:00 Test Item Value Reference Range Interpretation [...] = 380) CBC W/PLT COUNT & AUTO [id number] 05:32:00 Test Item Value Reference Range Interpretation [...] PERCENT (BEAKER) (test code = 2801) POCT-GLUCOSE [id number] 20:36:00 Test Item Value Reference Range Interpretation Comments POC-GLUCOSE METER 211 mg/dL 70-110 H TESTED AT [place] [address] ([facility] (test code = [facility] 1538) [address] CREATININE, RANDOM [id number] 19:55:00 Test Item Value Reference Range Interpretation Comments CREATININE URINE (BEAKER) (test 16.1 mg/dL code = 375) Reference Range: No NormalsPROTEIN, RANDOM [id number] 19:55:00 Test Item Value Reference Range Interpretation Comments PROTEIN, URINE (BEAKER) (test code 102 mg/dL 0-14 H = 1569) POCT-GLUCOSE [id number] 18:04:00 Test Item Value Reference Range Interpretation Comments POC-GLUCOSE METER 177 mg/dL 70-110 H TESTED AT [place] [address] ([facility]) (test code = [facility] 1538) [address] POCT-GLUCOSE [id number] 11:59:00 Test Item Value Reference Range Interpretation Comments POC-GLUCOSE METER 244 mg/dL 70-110 H TESTED AT [place] [address] ([facility]) (test code = [facility] 1538) [address] POCT-GLUCOSE [id number] 07:53:00 Test Item Value Reference Range Interpretation Comments POC-GLUCOSE METER 160 mg/dL 70-110 H TESTED AT [facility] 67[address] (BEAKER) (test code = JULIANO [place] 1537) [address] BASIC METABOLIC [id number] 05:29:00 Test Item Value Reference Range Interpretation [...] S NOT APPLICABLE FOR DIALYSIS PATIEN TS. [id number] 05:21:00 Test Item Value Reference Range Interpretation Comments MAGNESIUM (BEAKER) (test code = 2.1 mg/dL 1.6-2.6 627) HEPATIC FUNCTION [id number] 05:21:00 Test Item Value Reference Range Interpretation [...] code = 23 U/L 6-55 347) TROPONIN [id number] 05:18:00 Test Item Value Reference Range Interpretation [...] PERCENT (BEAKER) (test code = 2801) TROPONIN [id number] 23:40:00 Test Item Value Reference Range Interpretation [...] acidosis, acute neurological disease, and persistent tachyarrhythmia.POCT-GLUCOSE [id number] 22:51:00 Test Item Value Reference Range Interpretation Comments POC-GLUCOSE METER 214 mg/dL 70-110 H TESTED AT [facility] 67[address] ([facility]) (test code = JULIANO Osborne [facility] 1538) [address] RAD, CHEST, 1 VIEW, NON [id number] 21:42:00Reason for exam:->CHEST PAINShould this be performed at the bedside?->YesFINAL REPORT RAD, CHEST, 1 VIEW, NON DEPT INDICATION: CHEST PAIN COMPARISON: Chest x-ray 4 weeks ago TECHNIQUE: Single frontal view of the chest. IMPRESSION:Cardiomegaly.Mild pulmonary interstitial edema with a small right- sided effusion.No acute osseous abnormality. Signed: Dario Abraham MDReport Verified Date/Time: 09/02/2017 21:42:11 Reading Location: [facility] C013T [facility] Reading Room CREATININE, RANDOM [id number] 21:10:00 Test Item Value Reference Range Interpretation Comments CREATININE URINE (BEAKER) (test 35.5 mg/dL code = 375) Reference Range: No NormalsSODIUM, RANDOM [id number] 21:10:00 Test Item Value Reference Range Interpretation Comments SODIUM URINE (BEAKER) (test code = 80 meq/L 243) Reference Range: No NormalsURINALYSIS W/ [id number] 20:59:00 Test Item Value Reference Range Interpretation [...] code = 514) SOURCE(BEAKER) (test code = 7133) BASIC METABOLIC [id number] 16:49:00 Test Item Value Reference Range Interpretation [...] S NOT APPLICABLE FOR DIALYSIS PATIEN TS. PT/[id number] 16:38:00 Test Item Value Reference Range Interpretation [...] (BEAKER) (test code = 700) BASIC METABOLIC [id number] 13:43:00 Test Item Value Reference Range Interpretation [...] NOT APPLICABLE FOR DIALYSIS PATIEN TS. POCT-GLUCOSE [id number] 12:44:00 Test Item Value Reference Range Interpretation Comments POC-GLUCOSE METER 283 mg/dL 70-110 H TESTED AT [facility] 67[address] (BEAKER) (test code = [place]IANO [place] 1538) [address] CALCIUM, [id number] 07:03:00 Test Item Value Reference Range Interpretation Comments CALCIUM IONIZED (BEAKER) (test 1.02 mmol/L 1.12-1.27 L code = 698) PH, BLOOD (BEAKER) (test code = 7.43 1810) [id number] 05:28:00 Test Item Value Reference Range Interpretation Comments PHOSPHORUS (BEAKER) (test code = 3.3 mg/dL 2.3-4.7 604) [id number] 05:28:00 Test Item Value Reference Range Interpretation Comments MAGNESIUM (BEAKER) (test code = 1.5 mg/dL 1.6-2.6 L 627) BASIC METABOLIC [id number] 05:28:00 Test Item Value Reference Range Interpretation [...] PATIEN TS. CBC W/PLT COUNT & AUTO [id number] 05:06:00 Test Item Value Reference Range Interpretation [...] PERCENT (BEAKER) (test code = 2801) POCT-GLUCOSE [id number] 21:08:00 Test Item Value Reference Range Interpretation Comments POC-GLUCOSE METER 202 mg/dL 70-110 H TESTED AT [place] [address] ([facility] (test code = [facility] 1538) [address] POCT-GLUCOSE [id number] 16:50:00 Test Item Value Reference Range Interpretation Comments POC-GLUCOSE METER 287 mg/dL 70-110 H TESTED AT [place] [address] (BEAKER) (test code = [facility] 1538) [address] POCT-GLUCOSE [id number] 12:21:00 Test Item Value Reference Range Interpretation Comments POC-GLUCOSE METER 213 mg/dL 70-110 H TESTED AT [facility] 6720 (BEAKER) (test code = [facility] 1538) [address] POCT-GLUCOSE [id number] 08:28:00 Test Item Value Reference Range Interpretation Comments POC-GLUCOSE METER 178 mg/dL 70-110 H TESTED AT [facility] 6720 (BEAKER) (test code = [facility] 1538) [address] CALCIUM, [id number] 07:06:00 Test Item Value Reference Range Interpretation Comments CALCIUM IONIZED (BEAKER) (test 0.99 mmol/L 1.12-1.27 L code = 698) PH, BLOOD (BEAKER) (test code = 7.42 1810) [id number] 05:37:00 Test Item Value Reference Range Interpretation Comments PHOSPHORUS (BEAKER) (test code = 3.5 mg/dL 2.3-4.7 604) [id number] 05:37:00 Test Item Value Reference Range Interpretation Comments MAGNESIUM (BEAKER) (test code = 1.6 mg/dL 1.6-2.6 627) BASIC METABOLIC [id number] 05:37:00 Test Item Value Reference Range Interpretation [...] PATIEN TS. CBC W/PLT COUNT & AUTO [id number] 05:07:00 Test Item Value Reference Range Interpretation [...] % 0-1 PERCENT (BEAKER) (test code = 2506) POCT-GLUCOSE [id number] 21:24:00 Test Item Value Reference Range Interpretation Comments POC-GLUCOSE METER 255 mg/dL 70-110 H TESTED AT [facility] 6720 (BEAKER) (test code = JULIANO REYEZ 1538) [address] POCT-GLUCOSE [id number] 17:11:00 Test Item Value Reference Range Interpretation Comments POC-GLUCOSE METER 244 mg/dL 70-110 H TESTED AT [facility] 6720 (BEAKER) (test code = JULIANO [place]borne [place] 1538) [address] POCT-GLUCOSE [id number] 11:54:00 Test Item Value Reference Range Interpretation Comments POC-GLUCOSE METER 209 mg/dL 70-110 H TESTED AT [facility] 67[address] ([facility] (test code = JULIANO [place] 1538) [address] POCT-GLUCOSE [id number] 08:15:00 Test Item Value Reference Range Interpretation Comments POC-GLUCOSE METER 132 mg/dL 70-110 H TESTED AT [facility] 67[address] ([facility] (test code = JULIANO Osborne [facility] 1538) [address] RAD, CHEST, 1 VIEW, NON [id number] 07:44:00Reason for exam:->edemaShould this be performed at the bedside?->YesFINAL REPORT Chest one view AP 08/07/2017 7:44 AM CLINICAL INDICATION: edema COMPARISON: 05/31/2017 IMPRESSION: Cardiomediastinal contours are stable. There is mild pulmonary edema,asymmetric to the right. There are trace bilateral pleural effusions, with bibasilar linear atelectasis. Sternotomy wires remain midline. Signed: Regan Cespedes Verified Date/Time: 08/07/2017 07:44:22 Reading Location: [facility] Radiology Reading Room [id number] 05:30:00 Test Item Value Reference Range Interpretation Comments FERRITIN (BEAKER) (test code = 361) 87 ng/mL 5-275 CBC W/PLT COUNT & AUTO [id number] 05:21:00 Test Item Value Reference Range Interpretation [...] % 20-55 L (test code = 2590) [id number] 05:11:00 Test Item Value Reference Range Interpretation Comments PHOSPHORUS (BEAKER) (test code = 3.6 mg/dL 2.3-4.7 604) [id number] 05:11:00 Test Item Value Reference Range Interpretation Comments MAGNESIUM (BEAKER) (test code = 2.0 mg/dL 1.6-2.6 627) BASIC METABOLIC [id number] 05:11:00 Test Item Value Reference Range Interpretation [...] H (BEAKER) (test code = 700) CALCIUM, [id number] 04:58:00 Test Item Value Reference Range Interpretation Comments CALCIUM IONIZED (BEAKER) (test 1.04 mmol/L 1.12-1.27 L code = 698) PH, BLOOD (BEAKER) (test code = 7.41 1810) RETICULOCYTE [id number] 04:51:00 Test Item Value Reference Range Interpretation Comments RETICULOCYTE COUNT PCT (BEAKER) (test 1.2 % 0.5-1.7 code = 575) POCT-GLUCOSE [id number] 20:49:00 Test Item Value Reference Range Interpretation Comments POC-GLUCOSE METER 202 mg/dL 70-110 H TESTED AT [facility] 6720 (BEAKER) (test code = JULIANO [place] 1538) [address] CREATININE, RANDOM [id number] 18:38:00 Test Item Value Reference Range Interpretation Comments CREATININE URINE (BEAKER) (test 56.3 mg/dL code = 375) Reference Range: No NormalsPROTEIN, RANDOM [id number] 18:38:00 Test Item Value Reference Range Interpretation Comments PROTEIN, URINE (BEAKER) (test code 189 mg/dL 0-14 H = 1569) URINALYSIS W/ [id number] 18:34:00 Test Item Value Reference Range Interpretation [...] 516) SOURCE(BEAKER) (test code = Urine, Voided 4470) POCT-GLUCOSE [id number] 17:38:00 Test Item Value Reference Range Interpretation Comments POC-GLUCOSE METER 143 mg/dL 70-110 H TESTED AT [facility] 6720 (BEAKER) (test code = JULIANO [place] 1538) [address] POCT-GLUCOSE [id number] 12:30:00 Test Item Value Reference Range Interpretation Comments POC-GLUCOSE METER 218 mg/dL 70-110 H TESTED AT [place] [address] (BEAKER) (test code = JULIANO Osborne [place] 1538) [address] POCT-GLUCOSE [id number] 08:00:00 Test Item Value Reference Range Interpretation Comments POC-GLUCOSE METER 134 mg/dL 70-110 H TESTED AT [place] [address] (BEAKER) (test code = JULIANO Osborne [facility] 1538) [address] CBC W/PLT COUNT & AUTO [id number] 04:23:00 Test Item Value Reference Range Interpretation [...] (BEAKER) (test code = 2801) BASIC METABOLIC [id number] 04:13:00 Test Item Value Reference Range Interpretation [...] S NOT APPLICABLE FOR DIALYSIS PATIEN TS. [id number] 04:10:00 Test Item Value Reference Range Interpretation Comments PHOSPHORUS (BEAKER) (test code = 4.9 mg/dL 2.3-4.7 H 604) [id number] 04:10:00 Test Item Value Reference Range Interpretation Comments MAGNESIUM (BEAKER) (test code = 1.4 mg/dL 1.6-2.6 L 627) [id number] 04:08:00 Test Item Value Reference Range Interpretation Comments FIBRINOGEN LEVEL (BEAKER) (test 548 mg/dl 225-434 H code = 658) [id number] 04:08:00 Test Item Value Reference Range Interpretation Comments PARTIAL THROMBOPLASTIN TIME 37.7 seconds 22.5-36.0 H (BEAKER) (test code = 760) PROTHROMBIN [id number] 04:07:00 Test Item Value Reference Range Interpretation Comments PROTIME (BEAKER) (test code = 16.2 seconds 11.7-14.7 H 759) INR (BEAKER) (test code = 370) 1.3 <=5.9 RECOMMENDED COUMADIN/WARFARIN INR THERAPY RANGESSTANDARD DOSE: 2.0 - 3.0 Includes: PROPHYLAXIS forvenous thrombosis, systemic embolization; TREATMENT for venous thrombosis and/or pulmonary embolus.HIGH RISK: Target INR is 2.5-3.5 for patients with mechanical heart valves.[id number] 16:59:00 Test Item Value Reference Range Interpretation Comments ACTIVATED CLOTTING TIME 219 sec TEST ED AT [facility] 67[facility] ([facility] (test code = [place]IAN[place] 441) [address] BASIC METABOLIC [id number] 14:25:00 Test Item Value Reference Range Interpretation [...] NOT APPLICABLE FOR DIALYSIS PATIEN TS. POCT-GLUCOSE [id number] 13:21:00 Test Item Value Reference Range Interpretation Comments POC-GLUCOSE METER 170 mg/dL 70-110 H TESTED AT [facility] 6720 (BEAKER) (test code = JULIANO [place] 1538) [address] POTASSIUM-STAT [id number] 13:20:00 Test Item Value Reference Range Interpretation Comments POTASSIUM (BEAKER) (test code = 4.2 meq/L 3.6-5.5 379) SODIUM NA-STAT [id number] 13:20:00 Test Item Value Reference Range Interpretation Comments SODIUM (BEAKER) (test code = 381) 133 meq/L 135-148 L HGB/HCT (H&H) - STAT [id number] 12:34:00 Test Item Value Reference Range Interpretation Comments HEMOGLOBIN (BEAKER) (test code = 10.8 g/dL 12.0-15.0 L 410) HEMATOCRIT (BEAKER) (test code = 32.0 % 36.0-45.0 L 411) POTASSIUM-STAT [id number] 08:15:00 Test Item Value Reference Range Interpretation Comments POTASSIUM (BEAKER) (test code = 4.1 meq/L 3.6-5.5 379) BLOOD GAS, [id number] 08:15:00 Test Item Value Reference Range Interpretation [...] code = 1819) 70.0 % SODIUM NA-STAT [id number] 08:15:00 Test Item Value Reference Range Interpretation Comments SODIUM (BEAKER) (test code = 381) 130 meq/L 135-148 L GLUCOSE-STAT [id number] 08:15:00 Test Item Value Reference Range Interpretation Comments GLUCOSE RANDOM (BEAKER) (test code 172 mg/dL 70-110 H = 652) HGB/HCT (H&H) - STAT [id number] 08:15:00 Test Item Value Reference Range Interpretation Comments HEMOGLOBIN (BEAKER) (test code = 8.8 g/dL 12.0-15.0 L 410) HEMATOCRIT (BEAKER) (test code = 26.0 % 36.0-45.0 L 411) BASIC METABOLIC [id number] 07:37:00 Test Item Value Reference Range Interpretation [...] PATIEN TS. CBC W/PLT COUNT & AUTO [id number] 07:20:00 Test Item Value Reference Range Interpretation [...] PERCENT (BEAKER) (test code = 2801) POCT-GLUCOSE [id number] 07:03:00 Test Item Value Reference Range Interpretation Comments POC-GLUCOSE METER 186 mg/dL 70-110 H TESTED AT [facility] 6720 (BEAKER) (test code = [facility] [place] 1538) [address] B-TYPE NATRIURETIC FACTOR (BNP)2017-06-10 12:44:00 Test Item Value Reference Range Interpretation Comments B-TYPE NATRIURETIC PEPTIDE 1264 pg/mL 0-100 H (BEAKER) (test code = 700) [id number] 12:36:00 Test Item Value Reference Range Interpretation Comments MAGNESIUM (BEAKER) (test code = 1.6 mg/dL 1.6-2.6 627) BASIC METABOLIC [id number] 12:36:00 Test Item Value Reference Range Interpretation [...] NOT APPLICABLE FOR DIALYSIS PATIEN TS. POCT-GLUCOSE [id number] 12:04:00 Test Item Value Reference Range Interpretation Comments POC-GLUCOSE METER 274 mg/dL 70-110 H TESTED AT [facility] 6720 (BEAKER) (test code = [facility] [place] 1538) [address] POCT-GLUCOSE [id number] 07:21:00 Test Item Value Reference Range Interpretation Comments POC-GLUCOSE METER 137 mg/dL 70-110 H TESTED AT [facility] 6720 (BEAKER) (test code = [facility] [place] 1538) [address] BASIC METABOLIC [id number] 05:10:00 Test Item Value Reference Range Interpretation [...] RED BLOOD CELLS 0 /100 WBC 0-0 ([facility]) (test code = 413) POCT-GLUCOSE [id number] 21:23:00 Test Item Value Reference Range Interpretation Comments POC-GLUCOSE METER 240 mg/dL 70-110 H TESTED AT [facility] 6720 ([facility]) (test code = [facility] 1538) [address] POCT-GLUCOSE [id number] 16:42:00 Test Item Value Reference Range Interpretation Comments POC-GLUCOSE METER 234 mg/dL 70-110 H TESTED AT [facility] 67 ([facility]) (test code = [facility] 1538) [address] POCT-GLUCOSE [id number] 13:22:00 Test Item Value Reference Range Interpretation Comments POC-GLUCOSE METER 166 mg/dL 70-110 H TESTED AT [place] [address] ([facility]) (test code = [facility] 1538) [address] RAD, CHEST, 1 VIEW, NON [id number] 09:43:00Reason for exam:->s/p ACBShould this be performed [...] Lynda Ringeport Verified Date/Time: 05/31/2017 09:43:30 ReadingLocation: [facility] B1 C013X Ortho Consult Reading Room POCT-GLUCOSE [id number] 06:57:00 Test Item Value Reference Range Interpretation Comments POC-GLUCOSE METER 136 mg/dL 70-110 H TESTED AT [facility] 6720 ([facility]) (test code = [facility] 1538) [address] CALCIUM, [id number] 06:41:00 Test Item Value Reference Range Interpretation Comments CALCIUM IONIZED (BEAKER) (test 1.10 mmol/L 1.12-1.27 L code = 698) PH, BLOOD (BEAKER) (test code = 7.42 1810) [id number] 06:17:00 Test Item Value Reference Range Interpretation Comments PHOSPHORUS (BEAKER) (test code = 3.3 mg/dL 2.3-4.7 604) [id number] 06:17:00 Test Item Value Reference Range Interpretation Comments MAGNESIUM (BEAKER) (test code = 1.8 mg/dL 1.6-2.6 627) BASIC METABOLIC [id number] 06:17:00 Test Item Value Reference Range Interpretation [...] PATIEN TS. CBC W/PLT COUNT & AUTO [id number] 05:07:00 Test Item Value Reference Range Interpretation [...] PERCENT (BEAKER) (test code = 2801) POCT-GLUCOSE [id number] 20:56:00 Test Item Value Reference Range Interpretation Comments POC-GLUCOSE METER 196 mg/dL 70-110 H TESTED AT [facility] 6720 (BEAKER) (test code = JULIANO [place] 1538) [address] POCT-GLUCOSE [id number] 16:42:00 Test Item Value Reference Range Interpretation Comments POC-GLUCOSE METER 196 mg/dL 70-110 H TESTED AT [facility] 6720 (BEAKER) (test code = JULIANO Osborne [place] 1538) [address] POCT-GLUCOSE [id number] 11:45:00 Test Item Value Reference Range Interpretation Comments POC-GLUCOSE METER 215 mg/dL 70-110 H TESTED AT [facility] 6720 (BEAKER) (test code = JULIANO [place] 1538) [address] RAD, CHEST, 1 VIEW, NON [id number] 11:15:00Reason for exam:->s/p ACBShould this be performed at the bedside?->YesFINAL REPORT Chest one view compared to May 28, 2017 Discussion: Airspace opacities are seen in both lower lung regions, probably atelectasis. Correlate clinically for infection. I could not exclude small effusions. No pneumothorax. Upper lungs clear. Signed: [facility] Verified Date/Time: 05/30/2017 11:15:07 Reading Location: [facility] Radiology Reading Room CALCIUM, [id number] 09:21:00 Test Item Value Reference Range Interpretation Comments CALCIUM IONIZED (BEAKER) (test 1.11 mmol/L 1.12-1.27 L code = 698) PH, BLOOD (BEAKER) (test code = 7.36 1810) BASIC METABOLIC [id number] 07:37:00 Test Item Value Reference Range Interpretation [...] S NOT APPLICABLE FOR DIALYSIS PATIEN TS. [id number] 07:28:00 Test Item Value Reference Range Interpretation Comments PHOSPHORUS (BEAKER) (test code = 3.8 mg/dL 2.3-4.7 604) [id number] 07:28:00 Test Item Value Reference Range Interpretation Comments MAGNESIUM (BEAKER) (test code = 1.9 mg/dL 1.6-2.6 627) CBC W/PLT COUNT & AUTO [id number] 07:26:00 Test Item Value Reference Range Interpretation [...] PERCENT (BEAKER) (test code = 2801) POCT-GLUCOSE [id number] 07:21:00 Test Item Value Reference Range Interpretation Comments POC-GLUCOSE METER 146 mg/dL 70-110 H TESTED AT [place] [address] [facility] (test code = [facility] [place] [facility] 1538) [address] POCT-GLUCOSE [id number] 22:02:00 Test Item Value Reference Range Interpretation Comments POC-GLUCOSE METER 201 mg/dL 70-110 H TESTED AT [place] [address] ([facility]) (test code = [facility] [place] [facility] 1538) [address] POCT-GLUCOSE [id number] 18:27:00 Test Item Value Reference Range Interpretation Comments POC-GLUCOSE METER 240 mg/dL 70-110 H TESTED AT [place] [address] ([facility] (test code = [facility] [place] [facility] 1538) [address] POCT-GLUCOSE [id number] 12:13:00 Test Item Value Reference Range Interpretation Comments POC-GLUCOSE METER 193 mg/dL 70-110 H TESTED AT [place] [address] ([facility] (test code = [facility] [place] [facility] 1538) [address] POCT-GLUCOSE [id number] 09:02:00 Test Item Value Reference Range Interpretation Comments POC-GLUCOSE METER 132 mg/dL 70-110 H TESTED AT [place] [address] ([facility]) (test code = [place] 1538) [address] CALCIUM, [id number] 05:42:00 Test Item Value Reference Range Interpretation Comments CALCIUM IONIZED (BEAKER) (test 1.12 mmol/L 1.12-1.27 code = 698) PH, BLOOD (BEAKER) (test code = 7.34 1810) COMPREHENSIVE METABOLIC [id number] 05:33:00 Test Item Value Reference Range Interpretation [...] S NOT APPLICABLE FOR DIALYSIS PATIEN TS. [id number] 05:32:00 Test Item Value Reference Range Interpretation Comments PHOSPHORUS (BEAKER) (test code = 3.6 mg/dL 2.3-4.7 604) [id number] 05:32:00 Test Item Value Reference Range Interpretation Comments MAGNESIUM (BEAKER) (test code = 2.2 mg/dL 1.6-2.6 627) CBC W/PLT COUNT & AUTO [id number] 05:01:00 Test Item Value Reference Range Interpretation [...] 417) IMMATURE GRANULOCYTES-RELATIVE 1 % 0-1 PERCENT ([facility]) (test code = 2801) POCT-GLUCOSE [id number] 21:04:00 Test Item Value Reference Range Interpretation Comments POC-GLUCOSE METER 165 mg/dL 70-110 H TESTED AT [place] [address] ([facility]) (test code = JULIANO Os[place] 1538) [address] POCT-GLUCOSE [id number] 17:30:00 Test Item Value Reference Range Interpretation Comments POC-GLUCOSE METER 236 mg/dL 70-110 H TESTED AT [place] [address] ([facility]) (test code = JULIANO Osborne [facility] 1538) [address] RAD, CHEST, 1 VIEW, NON [id number] 13:53:00Reason for exam:->assess for ill-defined opacityShould this [...] MDReport Verified Date/Time: 05/28/2017 13:53:03 Reading Location: [address] Radiology Reading Room POCT-GLUCOSE [id number] 11:53:00 Test Item Value Reference Range Interpretation Comments POC-GLUCOSE METER 215 mg/dL 70-110 H TESTED AT [facility] 67 ([facility]) (test code = JULIANO [place] 1538) [address] POCT-GLUCOSE [id number] 08:32:00 Test Item Value Reference Range Interpretation Comments POC-GLUCOSE METER 168 mg/dL 70-110 H TESTED AT [facility] 6720 (BEAKER) (test code = [place] 1538) [address] CALCIUM, [id number] 05:44:00 Test Item Value Reference Range Interpretation Comments CALCIUM IONIZED (BEAKER) (test 1.09 mmol/L 1.12-1.27 L code = 698) PH, BLOOD (BEAKER) (test code = 7.38 1810) [id number] 05:44:00 Test Item Value Reference Range Interpretation Comments PHOSPHORUS (BEAKER) (test code = 3.5 mg/dL 2.3-4.7 604) [id number] 05:44:00 Test Item Value Reference Range Interpretation Comments MAGNESIUM (BEAKER) (test code = 1.9 mg/dL 1.6-2.6 627) BASIC METABOLIC [id number] 05:44:00 Test Item Value Reference Range Interpretation [...] PATIEN TS. CBC W/PLT COUNT & AUTO [id number] 05:05:00 Test Item Value Reference Range Interpretation [...] PERCENT (BEAKER) (test code = 2801) POCT-GLUCOSE [id number] 21:03:00 Test Item Value Reference Range Interpretation Comments POC-GLUCOSE METER 173 mg/dL 70-110 H TESTED AT [place] [address] ([facility]) (test code = JULIANO [place] 1538) [address] [id number] 18:15:00 Test Item Value Reference Range Interpretation Comments ACTIVATED CLOTTING TIME 147 sec TEST ED AT [place] [address] ([facility]) (test code = JULIANO [place] 441) [address] [id number] 18:15:00 Test Item Value Reference Range Interpretation Comments ACTIVATED CLOTTING TIME 246 sec TEST ED AT [place] [address] ([facility]) (test code = JULIANO Osborne [facility] 441) [address] POCT-GLUCOSE [id number] 12:39:00 Test Item Value Reference Range Interpretation Comments POC-GLUCOSE METER 219 mg/dL 70-110 H TESTED AT [place] [address] ([facility]) (test code = JULIANO Osborne [facility] 1538) [address] RAD, CHEST, 1 VIEW, NON [id number] 10:11:00Reason for exam:->pl effusionShould this be performed at the bedside?->YesFINAL REPORT Chest one view compared to May 26 Discussion: There is cardiac prominence. Upper lungs are clear. Ill-defined basilar densities are similar probably atelectasis. No gross effusion or pneumothorax with bilateral chest tubes in place. Signed: Jeannette Nava Verified Date/Time: 05/27/2017 10:11:44 Reading Location: [facility] Radiology Reading Room POCT-GLUCOSE METER 2017-05-27 07:05:00 Test Item Value Reference Range Interpretation Comments POC-GLUCOSE METER 167 mg/dL 70-110 H TESTED AT [place] [address] ([facility]) (test code = JULIANO Osborne [facility] 1538) [address] CALCIUM, [id number] 06:20:00 Test Item Value Reference Range Interpretation Comments CALCIUM IONIZED ([facility]) (test 0.98 mmol/L 1.12-1.27 L code = 698) PH, BLOOD ([facility]) (test code = 7.50 1810) [id number] 04:56:00 Test Item Value Reference Range Interpretation Comments PHOSPHORUS (BEAKER) (test code = 2.6 mg/dL 2.3-4.7 604) [id number] 04:56:00 Test Item Value Reference Range Interpretation Comments MAGNESIUM (BEAKER) (test code = 2.0 mg/dL 1.6-2.6 627) BASIC METABOLIC [id number] 04:56:00 Test Item Value Reference Range Interpretation [...] 697) EGFR (BEAKER) (test 37 mL/min/1.73 ESTIMA EMRNA GFR IS code = 1092) sq m NOT ACCURATE CREATININE CLEARANCE IN PREDICTING GLOMERULAR FILTRATION RATE . ESTIMATED GFR I S NOT APPLICABLE FOR DIALYSIS PATIEN TS. CBC W/PLT COUNT & AUTO [id number] 04:36:00 Test Item Value Reference Range Interpretation [...] PERCENT (BEAKER) (test code = 2801) POCT-GLUCOSE [id number] 21:29:00 Test Item Value Reference Range Interpretation Comments POC-GLUCOSE METER 147 mg/dL 70-110 H TESTED AT [facility] 6720 (BEAKER) (test code = [place] 1538) [address] POCT-GLUCOSE [id number] 17:51:00 Test Item Value Reference Range Interpretation Comments POC-GLUCOSE METER 224 mg/dL 70-110 H TESTED AT [facility] 6720 (BEAKER) (test code = [place] 1538) [address] POCT-GLUCOSE [id number] 13:53:00 Test Item Value Reference Range Interpretation Comments POC-GLUCOSE METER 182 mg/dL 70-110 H TESTED AT [facility] 6720 ([facility]) (test code = JULIANO [place] 1538) [address] RAD, CHEST, 1 VIEW, NON [id number] 08:44:00Reason for exam:->pl effusionShould this be performed [...] Ortegaeport Verified Date/Time: 05/26/2017 08:44:25 Reading Location: [address] Radiology Reading Room POCT- GLUCOSE [id number] 07:43:00 Test Item Value Reference Range Interpretation Comments POC-GLUCOSE METER 113 mg/dL 70-110 H TESTED AT [place] [address] ([facility]) (test code = JULIANO Osborne [facility] 1538) [address] CALCIUM, [id number] 06:31:00 Test Item Value Reference Range Interpretation Comments CALCIUM IONIZED (BEAKER) (test 1.07 mmol/L 1.12-1.27 L code = 698) PH, BLOOD (BEAKER) (test code = 7.38 1810) [id number] 04:51:00 Test Item Value Reference Range Interpretation Comments PHOSPHORUS (BEAKER) (test code = 3.2 mg/dL 2.3-4.7 604) [id number] 04:51:00 Test Item Value Reference Range Interpretation Comments MAGNESIUM (BEAKER) (test code = 2.1 mg/dL 1.6-2.6 627) BASIC METABOLIC [id number] 04:51:00 Test Item Value Reference Range Interpretation [...] PATIEN TS. CBC W/PLT COUNT & AUTO [id number] 04:27:00 Test Item Value Reference Range Interpretation [...] PERCENT (BEAKER) (test code = 2801) POCT-GLUCOSE [id number] 23:48:00 Test Item Value Reference Range Interpretation Comments POC-GLUCOSE METER 123 mg/dL 70-110 H TESTED AT [place] [address] ([facility] (test code = [facility] 1538) [address] POCT-GLUCOSE [id number] 16:46:00 Test Item Value Reference Range Interpretation Comments POC-GLUCOSE METER 178 mg/dL 70-110 H TESTED AT [place] [address] ([facility]) (test code = [facility] 1538) [address] BASIC METABOLIC [id number] 05:53:00 Test Item Value Reference Range Interpretation [...] S NOT APPLICABLE FOR DIALYSIS PATIEN TS. [id number] 05:52:00 Test Item Value Reference Range Interpretation Comments PHOSPHORUS (BEAKER) (test code = 4.2 mg/dL 2.3-4.7 604) [id number] 05:52:00 Test Item Value Reference Range Interpretation Comments MAGNESIUM (BEAKER) (test code = 2.3 mg/dL 1.6-2.6 627) CALCIUM, [id number] 05:27:00 Test Item Value Reference Range Interpretation Comments CALCIUM IONIZED (BEAKER) (test 1.12 mmol/L 1.12-1.27 code = 698) PH, BLOOD (BEAKER) (test code = 7.38 1810) CBC W/PLT COUNT & AUTO [id number] 05:07:00 Test Item Value Reference Range Interpretation [...] = 2801) RAD, CHEST, 1 VIEW, NON [id number] 04:45:00Reason for exam:->pl effusionShould this be performed at the bedside?->YesFINAL REPORT RAD, CHEST, 1 VIEW, NON DEPT INDICATION: pl effusion COMPARISON:Prior day's exam FINDINGS: Portable frontal view of the chest. IMPRESSION: Support Lines: Stable.Lungs and pleura: Unchanged airspace and pleural opacities. No pneumothorax.Heart and mediastinum: Stable contours. Stable surgical changes.Additional findings: None. Signed: JR Boswell Robert MDReport Verified Date/Time: 05/25/2017 04:45:08 Reading Location: [address] Body Reading Room POCT-GLUCOSE [id number] 01:52:00 Test Item Value Reference Range Interpretation Comments POC-GLUCOSE METER 126 mg/dL 70-110 H TESTED AT [facility] 6720 ([facility]) (test code = [place] 1538) [address] POCT-GLUCOSE [id number] 13:07:00 Test Item Value Reference Range Interpretation Comments POC-GLUCOSE METER 118 mg/dL 70-110 H TESTED AT [facility] 6720 ([facility]) (test code = [place] 1538) [address] BRONCHIAL CULTURE + GRAM [id number] 11:35:00 Test Item Value Reference Range Interpretation [...] <1+ gram (BEAKER) (test code = positive 543057) cocci in pairs GRAM STAIN RESULT 1+ gram (BEAKER) (test code = variable rods 266551) 1+ Normal respiratory todd presentRAD, CHEST, 1 VIEW, NON [id number] 06:50:00Reason for exam:->pl effusionShould this be performed at the bedside?->YesFINAL REPORT RAD, CHEST, 1 VIEW, NON DEPT INDICATION: pl effusion COMPARISON:Prior day's exam FINDINGS: Portable frontal view of the chest. IMPRESSION: Support Lines: Stable.Lungs and pleura: Unchanged airspace and pleural opacities. No pneumothorax.Heart and mediastinum: Stable contours. Stable surgical changes.Additional findings: None. Signed: JR Elbert, Kelly Bettencourt Verified Date/Time: 05/24/2017 06:50:08 Reading Location: [place] [id number] [place] Body Reading Room BASIC METABOLIC [id number] 04:19:00 Test Item Value Reference Range Interpretation [...] NOT APPLICABLE FOR DIALYSIS PATIEN TS. CALCIUM, [id number] 04:16:00 Test Item Value Reference Range Interpretation Comments CALCIUM IONIZED (BEAKER) (test 1.06 mmol/L 1.12-1.27 L code = 698) PH, BLOOD (BEAKER) (test code = 7.40 1810) [id number] 04:11:00 Test Item Value Reference Range Interpretation Comments PHOSPHORUS (BEAKER) (test code = 6.0 mg/dL 2.3-4.7 H 604) [id number] 04:11:00 Test Item Value Reference Range Interpretation Comments MAGNESIUM (BEAKER) (test code = 2.4 mg/dL 1.6-2.6 627) CBC W/PLT COUNT & AUTO [id number] 03:50:00 Test Item Value Reference Range Interpretation [...] PERCENT (AKER) (test code = 2801) POCT-GLUCOSE [id number] 20:45:00 Test Item Value Reference Range Interpretation Comments POC-GLUCOSE METER 143 mg/dL 70-110 H TESTED AT [facility] 67 ([facility]) (test code = [facility] 1538) [address] POCT-GLUCOSE [id number] 20:45:00 Test Item Value Reference Range Interpretation Comments POC-GLUCOSE METER 145 mg/dL 70-110 H TESTED AT [place] [address] ([facility]) (test code = [facility] 1538) [address] [id number] 13:37:00 Test Item Value Reference Range Interpretation Comments PREALBUMIN (BEAKER) 10 mg/dL 14-45 L Specimen slightly (test code = 586) hemolyzed OXYGEN SATURATION, [id number] 12:31:00 Test Item Value Reference Range Interpretation Comments O2 SATURATION (MEASURED) ([facility]) 94.5 % (test code = 1455) [id number] 11:02:00 Test Item Value Reference Range Interpretation Comments PREALBUMIN (BEAKER) (test code = 10 mg/dL 14-45 L 586) RAD, CHEST, 1 VIEW, NON [id number] 05:14:00while patient is intubated or has chest [...] ALEXANDREeport Verified Date/Time: 05/23/2017 05:14:04 Reading Location: [facility] C013Y CT Body Reading Room BASIC METABOLIC [id number] 03:48:00 Test Item Value Reference Range Interpretation [...] S NOT APPLICABLE FOR DIALYSIS PATIEN TS. [id number] 03:46:00 Test Item Value Reference Range Interpretation Comments MAGNESIUM (BEAKER) 2.4 mg/dL 1.6-2.6 Specimen slightly (test code = 627) hemolyzed [id number] 03:46:00 Test Item Value Reference Range Interpretation Comments PHOSPHORUS (BEAKER) 6.5 mg/dL 2.3-4.7 H Specimen slightly (test code = 604) hemolyzed CBC W/PLT COUNT & AUTO [id number] 03:26:00 Test Item Value Reference Range Interpretation [...] (BEAKER) (test code = 2801) BLOOD GAS, [id number] 03:18:00 Test Item Value Reference Range Interpretation [...] (test code = 1819) 36.0 % CALCIUM, [id number] 16:32:00 Test Item Value Reference Range Interpretation Comments CALCIUM IONIZED (BEAKER) (test 1.11 mmol/L 1.12-1.27 L code = 698) PH, BLOOD (BEAKER) (test code = 7.39 1810) BASIC METABOLIC [id number] 15:43:00 Test Item Value Reference Range Interpretation [...] NOT APPLICABLE FOR DIALYSIS PATIEN TS. POCT-GLUCOSE [id number] 12:53:00 Test Item Value Reference Range Interpretation Comments POC-GLUCOSE METER 118 mg/dL 70-110 H TESTED AT [facility] ([facility] (test code = JULIANO Osborne [facility] 1538) [address] BLOOD GAS, [id number] 10:42:00 Test Item Value Reference Range Interpretation [...] (test code = 1819) 40.0 % POCT-GLUCOSE [id number] 06:46:00 Test Item Value Reference Range Interpretation Comments POC-GLUCOSE METER 106 mg/dL 70-110 TESTED AT [facility] 6720 ([facility]) (test code = JULIANO Osborne [facility] 1538) [address] RAD, CHEST, 1 VIEW, NON [id number] 05:05:00while patient is intubated or has chest [...] MDReport Verified Date/Time: 05/22/2017 05:05:00 Reading Location: [address] Body ReadingRoom BASIC METABOLIC [id number] 05:00:00 Test Item Value Reference Range Interpretation [...] S NOT APPLICABLE FOR DIALYSIS PATIEN TS. [id number] 04:41:00 Test Item Value Reference Range Interpretation Comments PHOSPHORUS (BEAKER) (test code = 6.4 mg/dL 2.3-4.7 H 604) [id number] 04:41:00 Test Item Value Reference Range Interpretation Comments MAGNESIUM (BEAKER) (test code = 2.6 mg/dL 1.6-2.6 627) CALCIUM, [id number] 04:26:00 Test Item Value Reference Range Interpretation Comments CALCIUM IONIZED (BEAKER) (test 1.09 mmol/L 1.12-1.27 L code = 698) PH, BLOOD (BEAKER) (test code = 7.40 1810) OXYGEN SATURATION, [id number] 04:25:00 Test Item Value Reference Range Interpretation Comments O2 SATURATION (MEASURED) (BEAKER) 77.0 % (test code = 1455) CBC W/PLT COUNT & AUTO [id number] 04:17:00 Test Item Value Reference Range Interpretation [...] code = 2801) LACTIC ACID, ARTERIAL, WHOLE [id number] 00:07:00 Test Item Value Reference Range Interpretation Comments LACTATE BLOOD 1.0 mmol/L 0.5-2.2 Specimen sligh tly ARTERIAL (2) (BEAKER) hemoly zed (test code = 2874) Effective 08/02/2015: Units/Reference Range ChangeNew: 0.5-2.2 mmol/L Previous: 5-20 mg/dLPOCT-GLUCOSE [id number] 23:47:00 Test Item Value Reference Range Interpretation Comments POC-GLUCOSE METER 180 mg/dL 70-110 H TESTED AT [facility] 6720 (BEAKER) (test code = [place] 1538) [address] BLOOD GAS, [id number] 23:46:00 Test Item Value Reference Range Interpretation [...] code = 1819) 100.0 % SODIUM NA-STAT [id number] 23:46:00 Test Item Value Reference Range Interpretation Comments SODIUM (BEAKER) (test code = 381) 134 meq/L 135-148 L GLUCOSE-STAT [id number] 23:46:00 Test Item Value Reference Range Interpretation Comments GLUCOSE RANDOM (BEAKER) (test code 119 mg/dL 70-110 H = 652) HGB/HCT (H&H) - STAT [id number] 23:46:00 Test Item Value Reference Range Interpretation Comments HEMOGLOBIN (BEAKER) (test code = 8.8 g/dL 12.0-15.0 L 410) HEMATOCRIT (BEAKER) (test code = 26.0 % 36.0-45.0 L 411) OXYGEN SATURATION, [id number] 23:45:00 Test Item Value Reference Range Interpretation Comments O2 SATURATION (MEASURED) ([facility]) 68.1 % (test code = 1455) POTASSIUM-STAT [id number] 23:45:00 Test Item Value Reference Range Interpretation Comments POTASSIUM ([facility]) (test code = 5.5 meq/L 3.6-5.5 379) POCT-GLUCOSE [id number] 20:58:00 Test Item Value Reference Range Interpretation Comments POC-GLUCOSE METER 133 mg/dL 70-110 H TESTED AT [place] [address] ([facility]) (test code = JULIANO Osborne [facility] 1538) [id number] POCT-GLUCOSE [id number] 17:58:00 Test Item Value Reference Range Interpretation Comments POC-GLUCOSE METER 210 mg/dL 70-110 H TESTED AT [place] [address] ([facility]) (test code = JULIANO Osborne [facility] 1538) [address] POCT-GLUCOSE [id number] 17:58:00 Test Item Value Reference Range Interpretation Comments POC-GLUCOSE METER 211 mg/dL 70-110 H TESTED AT [place] [address] ([facility]) (test code = JULIANO Osborne [facility] 1538) [address] POCT-GLUCOSE [id number] 17:58:00 Test Item Value Reference Range Interpretation Comments POC-GLUCOSE METER 232 mg/dL 70-110 H TESTED AT [place] [address] ([facility]) (test code = JULIANO Osborne [facility] 1538) [address] POCT-GLUCOSE [id number] 17:58:00 Test Item Value Reference Range Interpretation Comments POC-GLUCOSE METER 262 mg/dL 70-110 H TESTED AT [place] [address] ([facility]) (test code = [facility] Dylon [facility] 1538) [address] BLOOD GAS, [id number] 17:01:00 Test Item Value Reference Range Interpretation Comments PH ARTERIAL ([facility]) (test code = 7.38 7.35-7.45 383) PCO2 ARTERIAL (BEAKER) (test code 39 mmHg 35-45 = 384) PO2 ARTERIAL (BEAKER) (test code 75 mmHg 80-90 L = 385) O2 SATURATION ARTERIAL ([facility]) 94.9 % 96.0-97.0 L (test code = 386) HCO3 ARTERIAL (BEAKER) (test code 23 mmol/L 21-29 = 388) BASE EXCESS ARTERIAL (BEAKER) -2.5 mmol/L -2.0-3.0 L (test code = 387) PATIENT TEMPERATURE (BEAKER) 36.8 C (test code = 1818) FIO2 (BEAKER) (test code = 1819) 60.0 % POTASSIUM-STAT [id number] 17:00:00 Test Item Value Reference Range Interpretation Comments POTASSIUM (BEAKER) (test code = 4.8 meq/L 3.6-5.5 379) POCT-GLUCOSE [id number] 15:52:00 Test Item Value Reference Range Interpretation Comments POC-GLUCOSE METER 267 mg/dL 70-110 H TESTED AT [facility] 6720 (BEAKER) (test code = MATTHIASAMANDA Osborne [place] 1538) [address] POCT-GLUCOSE [id number] 14:42:00 Test Item Value Reference Range Interpretation Comments POC-GLUCOSE METER 231 mg/dL 70-110 H TESTED AT [facility] 6720 (BEAKER) (test code = JULIANO Osborne [facility] 1538) [address] BODY FLUID CELL COUNT WITH [id number] 14:41:00 Test Item Value Reference Range Interpretation [...] Tube (test code = 2873) BASIC METABOLIC [id number] 14:11:00 Test Item Value Reference Range Interpretation [...] S NOT APPLICABLE FOR DIALYSIS PATIEN TS. [id number] 14:08:00 Test Item Value Reference Range Interpretation Comments PHOSPHORUS (BEAKER) (test code = 7.2 mg/dL 2.3-4.7 H 604) [id number] 14:08:00 Test Item Value Reference Range Interpretation Comments MAGNESIUM (BEAKER) (test code = 2.6 mg/dL 1.6-2.6 627) POCT-GLUCOSE [id number] 12:49:00 Test Item Value Reference Range Interpretation Comments POC-GLUCOSE METER 224 mg/dL 70-110 H TESTED AT [facility] 67 ([facility]) (test code = JULIANO Osborne [facility] 1538) [address] POCT-GLUCOSE [id number] 12:49:00 Test Item Value Reference Range Interpretation Comments POC-GLUCOSE METER 248 mg/dL 70-110 H TESTED AT [place] [address] ([facility]) (test code = JULIANO Osborne [facility] 1538) [address] RAD, CHEST, 1 VIEW, NON [id number] 12:32:00Reason for exam:->re-intubationShould this be performed at [...] MDReport Verified Date/Time: 05/21/2017 12:32:08 Reading Location: [facility] Radiology Reading Room POTASSIUM-STAT [id number] 12:28:00 Test Item Value Reference Range Interpretation Comments POTASSIUM (BEAKER) (test code = 5.5 meq/L 3.6-5.5 379) BLOOD GAS, [id number] 12:28:00 Test Item Value Reference Range Interpretation [...] code = 1819) 100.0 % BLOOD GAS, [id number] 10:53:00 Test Item Value Reference Range Interpretation [...] 36.0 % RAD, CHEST, 1 VIEW, NON [id number] 08:46:00while patient is intubated or has chest [...] apical pneumothorax is suspected. Signed: Mona White [facility] Verified Date/Time: 05/21/2017 08:46:27 Reading Location: [facility] Radiology Reading Room BLOOD GAS, [id number] 05:41:00 Test Item Value Reference Range Interpretation [...] (BEAKER) (test code = 1819) 40 CALCIUM, [id number] 04:35:00 Test Item Value Reference Range Interpretation Comments CALCIUM IONIZED (BEAKER) (test 1.13 mmol/L 1.12-1.27 code = 698) PH, BLOOD (BEAKER) (test code = 7.32 1810) BLOOD GAS, [id number] 04:28:00 Test Item Value Reference Range Interpretation [...] (BEAKER) (test code = 1819) 40.0 % [id number] 04:20:00 Test Item Value Reference Range Interpretation Comments PHOSPHORUS (BEAKER) (test code = 6.2 mg/dL 2.3-4.7 H 604) [id number] 04:20:00 Test Item Value Reference Range Interpretation Comments MAGNESIUM (BEAKER) (test code = 2.4 mg/dL 1.6-2.6 627) HEPATIC FUNCTION [id number] 04:20:00 Test Item Value Reference Range Interpretation [...] = 11 U/L 6-55 347) BASIC METABOLIC [id number] 04:20:00 Test Item Value Reference Range Interpretation [...] APPLICABLE FOR DIALYSIS PATIEN TS. OXYGEN SATURATION, [id number] 04:18:00 Test Item Value Reference Range Interpretation Comments O2 SATURATION (MEASURED) (BEAKER) 68.0 % (test code = 1455) LACTIC ACID, ARTERIAL, WHOLE [id number] 04:12:00 Test Item Value Reference Range Interpretation Comments LACTATE BLOOD ARTERIAL (2) 1.0 mmol/L 0.5-2.2 (BEAKER) (test code = 2874) Effective 08/02/2015: Units/Reference Range ChangeNew: 0.5-2.2 mmol/L Previous: 5-20 mg/dLCBC W/PLT COUNT & AUTO [id number] 04:00:00 Test Item Value Reference Range Interpretation [...] (BEAKER) (test code = 2801) BLOOD GAS, [id number] 00:06:00 Test Item Value Reference Range Interpretation [...] (BEAKER) (test code = 1819) 40.0 % [id number] 18:55:00 Test Item Value Reference Range Interpretation Comments PHOSPHORUS (BEAKER) (test code = 4.8 mg/dL 2.3-4.7 H 604) [id number] 18:55:00 Test Item Value Reference Range Interpretation Comments MAGNESIUM (BEAKER) (test code = 2.3 mg/dL 1.6-2.6 627) BASIC METABOLIC [id number] 18:55:00 Test Item Value Reference Range Interpretation [...] DIALYSIS PATIEN TS. LACTIC ACID, ARTERIAL, WHOLE [id number] 18:53:00 Test Item Value Reference Range Interpretation Comments LACTATE BLOOD 0.9 mmol/L 0.5-2.2 Specimen sligh tly ARTERIAL (2) (BEAKER) hemoly zed (test code = 2874) Effective 08/02/2015: Units/Reference Range ChangeNew: 0.5-2.2 mmol/L Previous: 5-20 mg/dLRAD, CHEST, 1 VIEW, NON [id number] 18:44:00Reason for exam:- >postop cardiacShould this be [...] Pneumonitis cannot be excluded. Signed: [facility]akta [facility] Verified Date/Time: 05/20/2017 18:44:30 Reading Location: [facility] [id number] Consult Reading Room Electronically signed by: MIGUEL BHAKTA M.D. on05/20/2017 06:44 PMCBC W/PLT COUNT & AUTO [id number] 18:38:00 Test Item Value Reference Range Interpretation [...] (BEAKER) (test code = 2801) OXYGEN SATURATION, [id number] 18:36:00 Test Item Value Reference Range Interpretation Comments O2 SATURATION (MEASURED) (BEAKER) 72.5 % (test code = 1455) From distal port of IJ central venous catheterSODIUM NA-STAT [id number] 18:30:00 Test Item Value Reference Range Interpretation Comments SODIUM (BEAKER) (test code = 381) 132 meq/L 135-148 L HGB/HCT (H&H) - STAT [id number] 18:30:00 Test Item Value Reference Range Interpretation Comments HEMOGLOBIN (BEAKER) (test code = 9.4 g/dL 12.0-15.0 L 410) HEMATOCRIT (BEAKER) (test code = 28.0 % 36.0-45.0 L 411) GLUCOSE-STAT [id number] 18:30:00 Test Item Value Reference Range Interpretation Comments GLUCOSE RANDOM (BEAKER) (test code 159 mg/dL 70-110 H = 652) BLOOD GAS, [id number] 18:30:00 Test Item Value Reference Range Interpretation [...] (test code = 1819) 60.0 % CALCIUM, [id number] 18:30:00 Test Item Value Reference Range Interpretation Comments CALCIUM IONIZED (BEAKER) (test 0.94 mmol/L 1.12-1.27 L code = 698) PH, BLOOD (BEAKER) (test code = 7.34 1810) POTASSIUM-STAT [id number] 18:28:00 Test Item Value Reference Range Interpretation [...] (test code = 1412) TGH PLT. AGGREGATION ([facility]) 62.8 MM 55.0-65.0 (test code = 1413) TGH FIBRINOLYSIS ([facility]) (test 0.0 % 0.0-5.0 code = 1414) [id number] 17:53:00 Test Item Value Reference Range Interpretation Comments ACTIVATED CLOTTING TIME 103 sec TEST ED AT [place] [address] ([facility]) (test code = [place] 441) [address] [id number] 17:53:00 Test Item Value Reference Range Interpretation Comments ACTIVATED CLOTTING TIME 466 sec TEST ED AT [place] [address] ([facility]) (test code = [place]IANO [place] 441) [address] [id number] 17:53:00 Test Item Value Reference Range Interpretation Comments ACTIVATED CLOTTING TIME 543 sec TEST ED AT [place] [address] ([facility]) (test code = JULIANO Osborne [place] 441) [address] [id number] 17:53:00 Test Item Value Reference Range Interpretation Comments ACTIVATED CLOTTING TIME 549 sec TEST ED AT [place] [address] ([facility]) (test code = [place]IANO [place] 441) [address] [id number] 17:53:00 Test Item Value Reference Range Interpretation Comments ACTIVATED CLOTTING TIME 632 sec TEST ED AT [place] [address] ([facility]) (test code = [place]IANO [place] 441) [address] [id number] 17:53:00 Test Item Value Reference Range Interpretation Comments ACTIVATED CLOTTING TIME 494 sec TEST ED AT [place] [address] ([facility]) (test code = [place] 441) [address] [id number] 17:53:00 Test Item Value Reference Range Interpretation Comments ACTIVATED CLOTTING TIME 587 sec TEST ED AT [place] [address] ([facility]) (test code = [place]IANO [place] 441) [address] [id number] 17:53:00 Test Item Value Reference Range Interpretation Comments ACTIVATED CLOTTING TIME 626 sec TEST ED AT [place] [address] ([facility]) (test code = JULIANO Osborne [place] 441) [address] [id number] 17:52:00 Test Item Value Reference Range Interpretation Comments ACTIVATED CLOTTING TIME 808 sec TEST ED AT [facility] 6720 (BEAKER) (test code = [place] 441) [address] [id number] 16:54:00 Test Item Value Reference Range Interpretation Comments PARTIAL THROMBOPLASTIN TIME 40.2 seconds 22.5-36.0 H (BEAKER) (test code = 760) [id number] 16:53:00 Test Item Value Reference Range Interpretation Comments FIBRINOGEN LEVEL (BEAKER) (test 306 mg/dl 225-434 code = 658) PROTHROMBIN [id number] 16:50:00 Test Item Value Reference Range Interpretation Comments PROTIME (BEAKER) (test code = 19.6 seconds 11.7-14.7 H 759) INR (BEAKER) (test code = 370) 1.7 <=5.9 RECOMMENDED COUMADIN/WARFARIN INR THERAPY RANGESSTANDARD DOSE: 2.0 - 3.0 Includes: PROPHYLAXIS forvenous thrombosis, systemic embolization; TREATMENT for venous thrombosis and/or pulmonary embolus.HIGH RISK: Target INR is 2.5-3.5 for patients with mechanical heart valves.PLATELET [id number] 16:45:00 Test Item Value Reference Range Interpretation Comments PLATELET COUNT (BEAKER) (test 136 K/CU MM 150-450 L code = 756) POTASSIUM-STAT [id number] 16:15:00 Test Item Value Reference Range Interpretation Comments POTASSIUM (BEAKER) (test code = 4.9 meq/L 3.6-5.5 379) BLOOD GAS, [id number] 16:15:00 Test Item Value Reference Range Interpretation [...] code = 1819) 100.0 % SODIUM NA-STAT [id number] 16:15:00 Test Item Value Reference Range Interpretation Comments SODIUM (BEAKER) (test code = 381) 131 meq/L 135-148 L GLUCOSE-STAT [id number] 16:15:00 Test Item Value Reference Range Interpretation Comments GLUCOSE RANDOM (BEAKER) (test code 198 mg/dL 70-110 H = 652) HGB/HCT (H&H) - STAT [id number] 16:15:00 Test Item Value Reference Range Interpretation Comments HEMOGLOBIN (BEAKER) (test code = 7.5 g/dL 12.0-15.0 L 410) HEMATOCRIT (BEAKER) (test code = 22.0 % 36.0-45.0 L 411) CALCIUM, [id number] 16:14:00 Test Item Value Reference Range Interpretation Comments CALCIUM IONIZED (BEAKER) (test 0.91 mmol/L 1.12-1.27 L code = 698) PH, BLOOD (BEAKER) (test code = 7.39 1810) BLOOD GAS, [id number] 15:39:00 Test Item Value Reference Range Interpretation [...] code = 1819) 70.0 % SODIUM NA-STAT [id number] 15:39:00 Test Item Value Reference Range Interpretation Comments SODIUM (BEAKER) (test code = 381) 131 meq/L 135-148 L GLUCOSE-STAT [id number] 15:39:00 Test Item Value Reference Range Interpretation Comments GLUCOSE RANDOM (BEAKER) (test code 186 mg/dL 70-110 H = 652) HGB/HCT (H&H) - STAT [id number] 15:39:00 Test Item Value Reference Range Interpretation Comments HEMOGLOBIN (BEAKER) (test code = 7.5 g/dL 12.0-15.0 L 410) HEMATOCRIT (BEAKER) (test code = 22.0 % 36.0-45.0 L 411) POTASSIUM-STAT [id number] 15:38:00 Test Item Value Reference Range Interpretation Comments POTASSIUM (BEAKER) (test code = 5.3 meq/L 3.6-5.5 379) BLOOD GAS, [id number] 15:24:00 Test Item Value Reference Range Interpretation [...] code = 1819) 70.0 % SODIUM NA-STAT [id number] 15:24:00 Test Item Value Reference Range Interpretation Comments SODIUM (BEAKER) (test code = 381) 130 meq/L 135-148 L GLUCOSE-STAT [id number] 15:24:00 Test Item Value Reference Range Interpretation Comments GLUCOSE RANDOM (BEAKER) (test code 189 mg/dL 70-110 H = 652) HGB/HCT (H&H) - STAT [id number] 15:24:00 Test Item Value Reference Range Interpretation Comments HEMOGLOBIN (BEAKER) (test code = 6.7 g/dL 12.0-15.0 L 410) HEMATOCRIT (BEAKER) (test code = 20.0 % 36.0-45.0 L 411) POTASSIUM-STAT [id number] 15:23:00 Test Item Value Reference Range Interpretation Comments POTASSIUM (BEAKER) (test code = 5.4 meq/L 3.6-5.5 379) BLOOD GAS, [id number] 15:07:00 Test Item Value Reference Range Interpretation [...] code = 1819) 70.0 % SODIUM NA-STAT [id number] 15:07:00 Test Item Value Reference Range Interpretation Comments SODIUM (BEAKER) (test code = 381) 129 meq/L 135-148 L GLUCOSE-STAT [id number] 15:07:00 Test Item Value Reference Range Interpretation Comments GLUCOSE RANDOM (BEAKER) (test code 172 mg/dL 70-110 H = 652) HGB/HCT (H&H) - STAT [id number] 15:07:00 Test Item Value Reference Range Interpretation Comments HEMOGLOBIN (BEAKER) (test code = 7.1 g/dL 12.0-15.0 L 410) HEMATOCRIT (BEAKER) (test code = 21.0 % 36.0-45.0 L 411) POTASSIUM-STAT [id number] 15:04:00 Test Item Value Reference Range Interpretation Comments POTASSIUM (BEAKER) (test code = 5.0 meq/L 3.6-5.5 379) BLOOD GAS, [id number] 14:21:00 Test Item Value Reference Range Interpretation [...] code = 1819) 70.0 % SODIUM NA-STAT [id number] 14:21:00 Test Item Value Reference Range Interpretation Comments SODIUM (BEAKER) (test code = 381) 133 meq/L 135-148 L GLUCOSE-STAT [id number] 14:21:00 Test Item Value Reference Range Interpretation Comments GLUCOSE RANDOM (BEAKER) (test code 160 mg/dL 70-110 H = 652) HGB/HCT (H&H) - STAT [id number] 14:21:00 Test Item Value Reference Range Interpretation Comments HEMOGLOBIN (BEAKER) (test code = 7.5 g/dL 12.0-15.0 L 410) HEMATOCRIT (BEAKER) (test code = 22.0 % 36.0-45.0 L 411) POTASSIUM-STAT [id number] 14:20:00 Test Item Value Reference Range Interpretation Comments POTASSIUM (BEAKER) (test code = 4.7 meq/L 3.6-5.5 379) BLOOD GAS, [id number] 13:58:00 Test Item Value Reference Range Interpretation [...] code = 1819) 80.0 % SODIUM NA-STAT [id number] 13:58:00 Test Item Value Reference Range Interpretation Comments SODIUM (BEAKER) (test code = 381) 132 meq/L 135-148 L GLUCOSE-STAT [id number] 13:58:00 Test Item Value Reference Range Interpretation Comments GLUCOSE RANDOM (BEAKER) (test code 166 mg/dL 70-110 H = 652) HGB/HCT (H&H) - STAT [id number] 13:58:00 Test Item Value Reference Range Interpretation Comments HEMOGLOBIN (BEAKER) (test code = 7.5 g/dL 12.0-15.0 L 410) HEMATOCRIT (BEAKER) (test code = 22.0 % 36.0-45.0 L 411) POTASSIUM-STAT [id number] 13:57:00 Test Item Value Reference Range Interpretation Comments POTASSIUM (BEAKER) (test code = 4.7 meq/L 3.6-5.5 379) BLOOD GAS, [id number] 13:35:00 Test Item Value Reference Range Interpretation [...] (test code = 1819) 80.0 % GLUCOSE-STAT [id number] 13:35:00 Test Item Value Reference Range Interpretation Comments GLUCOSE RANDOM (BEAKER) (test code 130 mg/dL 70-110 H = 652) HGB/HCT (H&H) - STAT [id number] 13:35:00 Test Item Value Reference Range Interpretation Comments HEMOGLOBIN (BEAKER) (test code = 6.7 g/dL 12.0-15.0 L 410) HEMATOCRIT (BEAKER) (test code = 20.0 % 36.0-45.0 L 411) SODIUM NA-STAT [id number] 13:35:00 Test Item Value Reference Range Interpretation Comments SODIUM (BEAKER) (test code = 381) 133 meq/L 135-148 L POTASSIUM-STAT [id number] 13:34:00 Test Item Value Reference Range Interpretation Comments POTASSIUM (BEAKER) (test code = 4.2 meq/L 3.6-5.5 379) BLOOD GAS, [id number] 13:16:00 Test Item Value Reference Range Interpretation [...] code = 1819) 80.0 % SODIUM NA-STAT [id number] 13:16:00 Test Item Value Reference Range Interpretation Comments SODIUM (BEAKER) (test code = 381) 133 meq/L 135-148 L HGB/HCT (H&H) - STAT [id number] 13:16:00 Test Item Value Reference Range Interpretation Comments HEMOGLOBIN (BEAKER) (test code = 6.3 g/dL 12.0-15.0 L 410) HEMATOCRIT (BEAKER) (test code = 19.0 % 36.0-45.0 L 411) CALCIUM, [id number] 13:15:00 Test Item Value Reference Range Interpretation Comments CALCIUM IONIZED (BEAKER) (test 0.98 mmol/L 1.12-1.27 L code = 698) PH, BLOOD (BEAKER) (test code = 7.34 1810) BLOOD GAS, [id number] 13:15:00 Test Item Value Reference Range Interpretation [...] (test code = 1819) 80.0 % GLUCOSE-STAT [id number] 13:14:00 Test Item Value Reference Range Interpretation Comments GLUCOSE RANDOM (BEAKER) (test code = 92 mg/dL 70-110 652) POTASSIUM-STAT [id number] 13:14:00 Test Item Value Reference Range Interpretation Comments POTASSIUM (BEAKER) (test code = 3.9 meq/L 3.6-5.5 379) BLOOD GAS, [id number] 10:54:00 Test Item Value Reference Range Interpretation [...] 1819) 100.0 % HGB/HCT (H&H) - STAT [id number] 10:54:00 Test Item Value Reference Range Interpretation Comments HEMOGLOBIN (BEAKER) (test code = 9.3 g/dL 12.0-15.0 L 410) HEMATOCRIT (BEAKER) (test code = 27.0 % 36.0-45.0 L 411) SODIUM NA-STAT [id number] 10:54:00 Test Item Value Reference Range Interpretation Comments SODIUM (BEAKER) (test code = 381) 132 meq/L 135-148 L GLUCOSE-STAT [id number] 10:52:00 Test Item Value Reference Range Interpretation Comments GLUCOSE RANDOM (BEAKER) (test code = 94 mg/dL 70-110 652) POTASSIUM-STAT [id number] 10:52:00 Test Item Value Reference Range Interpretation Comments POTASSIUM (BEAKER) (test code = 4.0 meq/L 3.6-5.5 379) HEMOGLOBIN [id number] 09:50:00 Test Item Value Reference Range Interpretation Comments HEMOGLOBIN A1C (BEAKER) (test code = 10.6 % 4.3-6.1 H 368) PLATELET AGGREGATION: FUNCTION [id number] 08:27:00 Test Item Value Reference Range Interpretation Comments WEAK ADP 63 % 60-91 RESULT(BEAKER) (test code = 2135) PLATELET FUNCTION 60-100% indicates SCREEN INTERP (BEAKER) normal platelet (test code = 2173) function [id number] Toshia Post MD (BEAKER) (test code = (electronic signature) 1433) PLATELET COUNT AGG 198 K/CU MM 150-450 (BEAKER) (test code = 2656) for patients on clopidogrel in past two weeksPOCT-GLUCOSE [id number] 08:11:00 Test Item Value Reference Range Interpretation Comments POC-GLUCOSE METER 116 mg/dL 70-110 H TESTED AT [facility] 6720 (BEAKER) (test code = [place]IANO [place] 1538) [address] [id number] 07:10:00 Test Item Value Reference Range Interpretation Comments PHOSPHORUS (BEAKER) (test code = 4.5 mg/dL 2.3-4.7 604) [id number] 07:10:00 Test Item Value Reference Range Interpretation Comments MAGNESIUM (BEAKER) (test code = 2.1 mg/dL 1.6-2.6 627) BASIC METABOLIC [id number] 07:10:00 Test Item Value Reference Range Interpretation [...] = 700) CBC W/PLT COUNT & AUTO [id number] 06:46:00 Test Item Value Reference Range Interpretation [...] PERCENT (BEAKER) (test code = 2801) CALCIUM, [id number] 06:40:00 Test Item Value Reference Range Interpretation Comments CALCIUM IONIZED (BEAKER) (test 1.06 mmol/L 1.12-1.27 L code = 698) PH, BLOOD (BEAKER) (test code = 7.39 1810) POCT-GLUCOSE [id number] 23:22:00 Test Item Value Reference Range Interpretation Comments POC-GLUCOSE METER 165 mg/dL 70-110 H TESTED AT [facility] 6720 (BEAKER) (test code = JULIANO [place] 1538) [address] URINE PROTEIN ELECTROPHORESIS, [id number] 18:02:00 Test Item Value Reference Range Interpretation Comments PROTEIN, URINE 305 mg/dL 0-14 H (BEAKER) (test code = 1569) ALBUMIN URINE ELP 70.9 % (BEAKER) (test code = 1018) GAMMA GLOBULIN URINE 29.1 % (BEAKER) (test code = 1015) UPEP, ID-438 ([facility]) No monoclonal bands (test code = 2604) detected. [id number] Rocio Galindo MD ([facility]) (test code = (electronic signature) 2605) PROTEIN ELECTROPHORESIS, [id number] 17:57:00 Test Item Value Reference Range Interpretation [...] all globulin fractions. No monoclonal bands detected. [id number] Rocio Galindo MD ([facility]) (test code = (electronic signature) 2618) PROTEIN TOTAL SERUM, 5.5 gm/dL 6.0-8.3 L SPEP (BEAKER) (test code = 2660) POCT-GLUCOSE [id number] 17:15:00 Test Item Value Reference Range Interpretation Comments POC-GLUCOSE METER 209 mg/dL 70-110 H TESTED AT [facility] (test code = [place]O [place] 1538) [address] BLOOD GAS, [id number] 15:54:00 Test Item Value Reference Range Interpretation [...] 36.0 % RAD, CHEST, 1 VIEW, NON [id number] 14:07:00Reason for exam:->SOB, hypoxemiaShould this be performed [...] Regan Cespedes Verified Date/Time: 05/19/2017 14:07:07 Reading Location:[address] Consult Reading Room POCT-GLUCOSE [id number] 11:26:00 Test Item Value Reference Range Interpretation Comments POC-GLUCOSE METER 262 mg/dL 70-110 H TESTED AT [place] [address] ([facility]) (test code = JULIANO Osborne [facility] 1538) [address] POCT-GLUCOSE [id number] 07:37:00 Test Item Value Reference Range Interpretation Comments POC-GLUCOSE METER 170 mg/dL 70-110 H TESTED AT [place] [address] ([facility]) (test code = BANNERAMANDA Osborne [facility] 1538) [id number] CALCIUM, [id number] 06:06:00 Test Item Value Reference Range Interpretation Comments CALCIUM IONIZED (BEAKER) (test 1.05 mmol/L 1.12-1.27 L code = 698) PH, [facility]LOOD [facility] (test code = 7.41 1810) [id number] 05:38:00 Test Item Value Reference Range Interpretation Comments PHOSPHORUS (BEAKER) (test code = 3.9 mg/dL 2.3-4.7 604) [id number] 05:38:00 Test Item Value Reference Range Interpretation Comments MAGNESIUM (BEAKER) (test code = 2.2 mg/dL 1.6-2.6 627) BASIC METABOLIC [id number] 05:38:00 Test Item Value Reference Range Interpretation [...] PATIEN TS. CBC W/PLT COUNT & AUTO [id number] 05:09:00 Test Item Value Reference Range Interpretation [...] PERCENT (BEAKER) (test code = 2801) POCT-GLUCOSE [id number] 22:08:00 Test Item Value Reference Range Interpretation Comments POC-GLUCOSE METER 263 mg/dL 70-110 H TESTED AT [place] [address] ([facility]) (test code = JULIANO REYEZ 1538) [id number] POCT-GLUCOSE [id number] 17:20:00 Test Item Value Reference Range Interpretation Comments POC-GLUCOSE METER 233 mg/dL 70-110 H TESTED AT [place] [address] ([facility]) (test code = JULIANO RUTH [place] 1538) [address] POCT-GLUCOSE [id number] 08:28:00 Test Item Value Reference Range Interpretation Comments POC-GLUCOSE METER 154 mg/dL 70-110 H TESTED AT [place] [address] ([facility]) (test code = JULIANO RUTH [place] 1538) [id number] BASIC METABOLIC [id number] 06:41:00 Test Item Value Reference Range Interpretation [...] S NOT APPLICABLE FOR DIALYSIS PATIEN TS. [id number] 06:35:00 Test Item Value Reference Range Interpretation Comments PHOSPHORUS (BEAKER) (test code = 4.1 mg/dL 2.3-4.7 604) [id number] 06:35:00 Test Item Value Reference Range Interpretation Comments MAGNESIUM (BEAKER) (test code = 2.1 mg/dL 1.6-2.6 627) CALCIUM, [id number] 06:22:00 Test Item Value Reference Range Interpretation Comments CALCIUM IONIZED (BEAKER) (test 1.10 mmol/L 1.12-1.27 L code = 698) PH, BLOOD (BEAKER) (test code = 7.38 1810) CBC W/PLT COUNT & AUTO [id number] 06:04:00 Test Item Value Reference Range Interpretation [...] PERCENT (BEAKER) (test code = 2801) POCT-GLUCOSE [id number] 03:44:00 Test Item Value Reference Range Interpretation Comments POC-GLUCOSE METER 220 mg/dL 70-110 H TESTED AT [facility] 6720 (BEAKER) (test code = JULIANO REYEZ 1538) [address] POCT-GLUCOSE [id number] 18:27:00 Test Item Value Reference Range Interpretation Comments POC-GLUCOSE METER 256 mg/dL 70-110 H TESTED AT [place] [address] ([facility]) (test code = JULIANO Osborne [place] 1538) [address] POCT-GLUCOSE [id number] 15:45:00 Test Item Value Reference Range Interpretation Comments POC-GLUCOSE METER 278 mg/dL 70-110 H TESTED AT [place] [address] ([facility]) (test code = JULIANO Osborne [place] 1538) [address] POCT-GLUCOSE [id number] 13:22:00 Test Item Value Reference Range Interpretation Comments POC-GLUCOSE METER 278 mg/dL 70-110 H TESTED AT [place] [address] ([facility]) (test code = JULIANO Osborne [place] 1538) [address] PLATELET AGGREGATION: FUNCTION [id number] 13:18:00 Test Item Value Reference Range Interpretation Comments WEAK ADP 66 % 60-91 RESULT([facility]) (test code = 2135) PLATELET FUNCTION 60-100% indicates SCREEN INTERP ([facility]) normal platelet (test code = 2173) function [id number] Rigoberto Duenas MD ([facility]) (test code = (electronic signature) 2622) PLATELET COUNT AGG 204 K/CU MM 150-450 ([facility]) (test code = 2656) POCT-GLUCOSE [id number] 08:27:00 Test Item Value Reference Range Interpretation Comments POC-GLUCOSE METER 189 mg/dL 70-110 H TESTED AT [place] [address] ([facility]) (test code = MATTHIASID Dylon [place] 1538) [address] CALCIUM, [id number] 06:12:00 Test Item Value Reference Range Interpretation Comments CALCIUM IONIZED (AKER) (test 1.07 mmol/L 1.12-1.27 L code = 698) PH, BLOOD ([facility]) (test code = 7.36 1810) [id number] 05:43:00 Test Item Value Reference Range Interpretation Comments PHOSPHORUS (BEAKER) (test code = 3.6 mg/dL 2.3-4.7 604) [id number] 05:43:00 Test Item Value Reference Range Interpretation Comments MAGNESIUM (BEAKER) (test code = 2.1 mg/dL 1.6-2.6 627) BASIC METABOLIC [id number] 05:43:00 Test Item Value Reference Range Interpretation [...] PATIEN TS. CBC W/PLT COUNT & AUTO [id number] 05:05:00 Test Item Value Reference Range Interpretation [...] PERCENT (BEAKER) (test code = 2801) POCT-GLUCOSE [id number] 21:32:00 Test Item Value Reference Range Interpretation Comments POC-GLUCOSE METER 176 mg/dL 70-110 H TESTED AT [place] [address] ([facility]) (test code = [facility] 1538) [address] POCT-GLUCOSE [id number] 20:27:00 Test Item Value Reference Range Interpretation Comments POC-GLUCOSE METER 161 mg/dL 70-110 H TESTED AT [place] [address] ([facility]) (test code = [facility] 1538) [address] POCT-GLUCOSE [id number] 18:23:00 Test Item Value Reference Range Interpretation Comments POC-GLUCOSE METER 185 mg/dL 70-110 H TESTED AT [place] [address] ([facility]) (test code = [facility] 1538) [address] POCT-GLUCOSE [id number] 13:26:00 Test Item Value Reference Range Interpretation Comments POC-GLUCOSE METER 282 mg/dL 70-110 H TESTED AT [facility] 6720 (BEAKER) (test code = JULIANO Osborne [place] 1538) [address] URINE [id number] 10:12:00 Test Item Value Reference Range Interpretation Comments CULTURE (BEAKER) (test >100,000 col/mL skin code = 1095) todd POCT-GLUCOSE [id number] 09:01:00 Test Item Value Reference Range Interpretation Comments POC-GLUCOSE METER 268 mg/dL 70-110 H TESTED AT [facility] 6720 [facility] (test code = JULIANO Osborne [facility] 1538) [address] CALCIUM, [id number] 05:39:00 Test Item Value Reference Range Interpretation Comments CALCIUM IONIZED (BEAKER) (test 0.84 mmol/L 1.12-1.27 L code = 698) PH, BLOOD (BEAKER) (test code = 7.35 1810) BASIC METABOLIC [id number] 05:07:00 Test Item Value Reference Range Interpretation [...] S NOT APPLICABLE FOR DIALYSIS PATIEN TS. [id number] 05:06:00 Test Item Value Reference Range Interpretation Comments PHOSPHORUS (BEAKER) (test code = 3.2 mg/dL 2.3-4.7 604) [id number] 05:06:00 Test Item Value Reference Range Interpretation Comments MAGNESIUM (BEAKER) (test code = 2.3 mg/dL 1.6-2.6 627) CBC W/PLT COUNT & AUTO [id number] 04:42:00 Test Item Value Reference Range Interpretation [...] code = 416) BASOPHILS ABSOLUTE COUNT (SERVANDOAKER) 0.07 K/ L 0.01-0.08 (test code = 417) IMMATURE GRANULOCYTES-RELATIVE 0 % 0-1 PERCENT (ROBERT) (test code = 2801) RHEUMATOID FACTOR AB, REFLEX TO [id number] 01:52:00 Test Item Value Reference Range Interpretation Comments RHEUMATOID FACTOR (ROBERT) (test Negative code = 573) POCT-GLUCOSE [id number] 21:57:00 Test Item Value Reference Range Interpretation Comments POC-GLUCOSE METER 105 mg/dL 70-110 TESTED AT [facility] 6720 (ROBERT) (test code = JULIANO Osborne [facility] 1538) [address] POCT-GLUCOSE [id number] 18:11:00 Test Item Value Reference Range Interpretation Comments POC-GLUCOSE METER 312 mg/dL 70-110 H Notified Dylon Austin MD/TESTED (ROBERT) (test code = AT [facility] 6720 [facility] 1538) [facility] 7703 0 PET, CARDIAC PERFUSION MULTIPLE STUDIES, REST AND [id number] 16:28:00 Reason for exam:->pvcs, known cadFINAL REPORT PROCEDURE: Rest/Stress MYOCARDIAL PERFUSION PET with regadenoson\\XA9\\ CPT CODE: 64509 INDICATION: Defined extent and severity of known [...] is 23%. LVEF at stress is 36%. 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 7. No previous [facility] study for comparison. NONINVASIVE RISK STRATIFICATION: The above findings are considered high risk (>3% annual mortality rate) based on the following criteria: - Severe resting left ventricular dysfunction (LVEF 35%)- Stress-induced large perfusion defect (particularly if anterior)(JACC. 2012;59(9):857-81.) Signed: Natan Whaley Verified Date/Time: 05/15/2017 16:28:12 Reading Location: [address] ReadingRoom RAD, CHEST, 1 VIEW, NON [id number] 15:56:00Reason for exam:->SOBShould this be performed at the bedside?->YesFINAL REPORT Comparison: 05/14/2017 TECHNIQUE: Single view of the chest FINDINGS: There is a small right pleural effusion with nonspecific airspace disease. This is unchanged. Left lung is grossly clear. Cardiac silhouette is enlarged. IMPRESSION: 1. No acute cardiopulmonary disease. Signed: Sixto Monk MDReport Verified Date/Time: 05/15/2017 15:56:39 [facility] POCT-GLUCOSE [id number] 12:54:00 Test Item Value Reference Range Interpretation Comments POC-GLUCOSE METER 308 mg/dL 70-110 H Notified R Sonya PIERRE/TESTED (ROBERT) (test code = AT [facility] 6720 [place] 1538) [facility] 7703 0 U/S, RENAL WITH [id number] 11:04:00Reason for exam:->tracy, htnShould this be performed [...] the resistive indices throughout. Signed: Anahi Hobbs BETTIEeport Verified Date/Time: 05/15/2017 11:04:01 Reading Location: [facility] [id number] Ultrasound Reading Room ANA TITER AND [id number] 10:57:00 Test Item Value Reference Range Interpretation Comments ROGER TITER (BEAKER) (test code = :160 1541) ROGER PATTERN (BEAKER) (test code = Speckled 1781) ANTI-NUCLEAR ANTIBODY (ROGER)2017-05-15 10:56:00 Test Item Value Reference Range Interpretation Comments ANTI-NUCLEAR ANTIBODY (ROGER) (BEAKER) Positive Negative A (test code = 418) CALCIUM, [id number] 06:00:00 Test Item Value Reference Range Interpretation Comments CALCIUM IONIZED (BEAKER) (test 1.07 mmol/L 1.12-1.27 L code = 698) PH, BLOOD (BEAKER) (test code = 7.28 1810) HEPATITIS PANEL, [id number] 05:01:00 Test Item Value Reference Range Interpretation Comments HEPATITIS A IGM ANTIBODY (BEAKER) Nonreactive Nonreactive (test code = 498) HEPATITIS B CORE IGM ANTIBODY Nonreactive Nonreactive (BEAKER) (test code = 645) HEPATITIS C ANTIBODY (BEAKER) Nonreactive Nonreactive (test code = 367) HEPATITIS B SURFACE ANTIGEN (2) Nonreactive Nonreactive (BEAKER) (test code = 2585) BASIC METABOLIC [id number] 04:48:00 Test Item Value Reference Range Interpretation [...] NOT APPLICABLE FOR DIALYSIS PATIEN TS. URIC [id number] 04:41:00 Test Item Value Reference Range Interpretation Comments URIC ACID (BEAKER) (test code = 10.3 mg/dL 2.6-7.2 H 773) [id number] 04:41:00 Test Item Value Reference Range Interpretation Comments MAGNESIUM (BEAKER) (test code = 2.0 mg/dL 1.6-2.6 627) [id number] 04:41:00 Test Item Value Reference Range Interpretation Comments PHOSPHORUS (BEAKER) (test code = 4.2 mg/dL 2.3-4.7 604) COMPLEMENT COMPONENT [id number] 04:38:00 Test Item Value Reference Range Interpretation Comments C4 COMPLEMENT (BEAKER) (test code = 28 mg/dL 15-57 394) COMPLEMENT COMPONENT [id number] 04:38:00 Test Item Value Reference Range Interpretation Comments C3 COMPLEMENT (BEAKER) (test code = 103 mg/dL 82-193 393) CBC W/PLT COUNT & AUTO [id number] 04:22:00 Test Item Value Reference Range Interpretation [...] PERCENT (BEAKER) (test code = 2808) POCT-GLUCOSE [id number] 21:46:00 Test Item Value Reference Range Interpretation Comments POC-GLUCOSE METER 173 mg/dL 70-110 H TESTED AT [facility] 6720 (BEAKER) (test code = JULIANO REYEZ 1538) [address] POCT-GLUCOSE [id number] 21:46:00 Test Item Value Reference Range Interpretation Comments POC-GLUCOSE METER 154 mg/dL 70-110 H TESTED AT [facility] 6720 ([facility]) (test code = JULIANO Osborne [place] 1538) [address] POCT-GLUCOSE [id number] 18:17:00 Test Item Value Reference Range Interpretation Comments POC-GLUCOSE METER 175 mg/dL 70-110 H TESTED AT [place] [address] ([facility]) (test code = JULIANO Osborne [facility] 1538) [address] RAD, CHEST, 1 VIEW, NON [id number] 14:56:00Reason for exam:->SOBShould this be performed at the bedside?->YesFINAL REPORT INDICATION: SOB COMPARISON: May 13, 2017 TECHNIQUE: Chest radiograph, single view, portable technique. FINDINGS / IMPRESSION: Enlarged heart shadow, small rightpleural effusion, and pulmonary venous congestion, again demonstrated. No pneumothorax or consolidation. Osseous structures unremarkable. Signed: Thania [facility]ps[facility] Verified Date/Time: 05/14/2017 14:56:58 Reading Location: [facility] Mammo Reading Room POCT-GLUCOSE [id number] 12:18:00 Test Item Value Reference Range Interpretation Comments POC-GLUCOSE METER 313 mg/dL 70-110 H TESTED AT [place] [address] ([facility]) (test code = JULIANO Osborne [facility] 1538) [address] HIV-1 ANTIGEN WITH HIV-1/2 [id number] 12:07:00 Test Item Value Reference Range Interpretation Comments HIV-1 ANTIGEN WITH HIV 1\\T\\2 Nonreactive Nonreactive ANTIBODY (2) ([facility]) (test code = 2586) CALCIUM, [id number] 06:37:00 Test Item Value Reference Range Interpretation Comments CALCIUM IONIZED (BEAKER) (test 1.08 mmol/L 1.12-1.27 L code = 698) PH, BLOOD ([facility]) (test code = 7.25 1810) BASIC METABOLIC [id number] 06:26:00 Test Item Value Reference Range Interpretation [...] pg/mL 0-100 H (test code = 700) [id number] 06:25:00 Test Item Value Reference Range Interpretation Comments PHOSPHORUS (BEAKER) (test code = 5.7 mg/dL 2.3-4.7 H 604) [id number] 06:25:00 Test Item Value Reference Range Interpretation Comments MAGNESIUM (BEAKER) (test code = 1.5 mg/dL 1.6-2.6 L 627) CBC W/PLT COUNT & AUTO [id number] 06:07:00 Test Item Value Reference Range Interpretation [...] PERCENT (BEAKER) (test code = 2801) POCT-GLUCOSE [id number] 22:38:00 Test Item Value Reference Range Interpretation Comments POC-GLUCOSE METER 262 mg/dL 70-110 H TESTED AT [facility] 6720 (BEAKER) (test code = MATTHIASAMANDA REYEZ 1538) [address] PROTEIN, RANDOM [id number] 22:18:00 Test Item Value Reference Range Interpretation Comments PROTEIN, URINE (BEAKER) (test code 641 mg/dL 0-14 H = 1569) CREATININE, RANDOM [id number] 22:07:00 Test Item Value Reference Range Interpretation Comments CREATININE URINE (BEAKER) (test 124.9 mg/dL code = 375) Reference Range: No NormalsURINALYSIS W/ [id number] 22:03:00 Test Item Value Reference Range Interpretation [...] 1585) SOURCE(BEAKER) (test code = Urine, Voided 7537) [id number] 19:49:00 Test Item Value Reference Range Interpretation Comments SODIUM (BEAKER) (test 136 meq/L 136-145 code = 381) POTASSIUM (BEAKER) 5.1 meq/L 3.5-5.1 Specimen slightly (test code = 379) hemolyzed CHLORIDE (BEAKER) 104 meq/L 98-107 (test code = 382) CO2 (BEAKER) (test 25 meq/L 22-29 code = 355) Call if K > 5POCT-GLUCOSE [id number] 11:37:00 Test Item Value Reference Range Interpretation Comments POC-GLUCOSE METER 293 mg/dL 70-110 H TESTED AT [place] [address] ([facility]) (test code = JULIANO Osborne [facility] 1538) [address] RAD, CHEST, 1 VIEW, NON [id number] 10:22:00Reason for exam:->SOBShould this be performed at the bedside?->YesFINAL REPORT Chest one view Discussion: There is cardiomegaly and interstitial congestion. A small right-sided effusion is noted. No pneumothorax. IMPRESSIONS: Suspected CHF. Signed: Jeannette Navaeport Verified Date/Time: 05/13/2017 10:22:34 Reading Location: [facility] Radiology Reading Room POCT-GLUCOSE METER 2017-05-13 08:34:00 Test Item Value Reference Range Interpretation Comments POC-GLUCOSE METER 178 mg/dL 70-110 H TESTED AT [place] [address] ([facility]) (test code = JULIANO Osborne [facility] 1538) [address] POCT-GLUCOSE [id number] 06:53:00 Test Item Value Reference Range Interpretation Comments POC-GLUCOSE METER 167 mg/dL 70-110 H TESTED AT [place] [address] ([facility]) (test code = JULIANO Osborne [facility] 1538) [address] [id number] 04:48:00 Test Item Value Reference Range Interpretation Comments BLOOD UREA NITROGEN (BEAKER) (test 36 mg/dL 7-21 H code = 354) [id number] 04:48:00 Test Item Value Reference Range Interpretation Comments SODIUM (BEAKER) (test code = 381) 139 meq/L 136-145 POTASSIUM (BEAKER) (test code = 5.2 meq/L 3.5-5.1 H 379) CHLORIDE (BEAKER) (test code = 382) 109 meq/L 98-107 H CO2 (BEAKER) (test code = 355) 23 meq/L 22-29 [id number] 04:48:00 Test Item Value Reference Range Interpretation [...] WBC 0-0 (BEAKER) (test code = 413) [id number] 23:29:00 Test Item Value Reference Range Interpretation Comments ACTIVATED CLOTTING TIME 136 sec TEST ED AT [place] [address] ([facility]) (test code = JULIANO [place] [facility]) [address] [id number] 20:13:00 Test Item Value Reference Range Interpretation Comments ACTIVATED CLOTTING TIME 175 sec TEST ED AT [place] [address] ([facility]) (test code = JULIANO [place] [facility]) [address] [id number] 18:36:00 Test Item Value Reference Range Interpretation Comments ACTIVATED CLOTTING TIME 202 sec TEST ED AT [place] [address] ([facility]) (test code = JULIANO [place] [facility]) [address] [id number] 18:03:00 Test Item Value Reference Range Interpretation Comments ACTIVATED CLOTTING TIME 208 sec TEST ED AT [facility] 6720 (BEAKER) (test code = JULIANO [place] 441) [address] BASIC METABOLIC [id number] 11:57:00 Test Item Value Reference Range Interpretation [...] NOT APPLICABLE FOR DIALYSIS PATIEN TS. PROTHROMBIN [id number] 11:15:00 Test Item Value Reference Range Interpretation [...] if on CoumadinCBC W/PLT COUNT & AUTO [id number] 11:01:00 Test Item Value Reference Range Interpretation [...] PERCENT (BEAKER) (test code = 2801) POCT-GLUCOSE [id number] 12:35:00 Test Item Value Reference Range Interpretation Comments POC-GLUCOSE METER 249 mg/dL 70-110 H TESTED AT [facility] 6720 (BEAKER) (test code = JULIANO Osborne [place] 1538) [address] POCT-GLUCOSE [id number] 09:10:00 Test Item Value Reference Range Interpretation Comments POC-GLUCOSE METER 155 mg/dL 70-110 H TESTED AT [facility] 6720 (BEAKER) (test code = JULIANO Osborne [place] 1538) [address] BASIC METABOLIC [id number] 05:39:00 Test Item Value Reference Range Interpretation [...] S NOT APPLICABLE FOR DIALYSIS PATIEN TS. [id number] 05:27:00 Test Item Value Reference Range Interpretation Comments PHOSPHORUS (BEAKER) (test code = 5.0 mg/dL 2.3-4.7 H 604) [id number] 05:27:00 Test Item Value Reference Range Interpretation Comments MAGNESIUM (BEAKER) (test code = 1.6 mg/dL 1.6-2.6 627) POCT-GLUCOSE [id number] 05:25:00 Test Item Value Reference Range Interpretation Comments POC-GLUCOSE METER 144 mg/dL 70-110 H TESTED AT [place] [id number] (BEAKER) (test code = JULIANO Osborne [place] 1538) [address] PROTHROMBIN [id number] 04:58:00 Test Item Value Reference Range Interpretation Comments PROTIME (BEAKER) (test code = 14.2 seconds 11.7-14.7 759) INR ([facility]) (test code = 370) 1.1 <=5.9 RECOMMENDED COUMADIN/WARFARIN INR THERAPY RANGESSTANDARD DOSE: 2.0 - 3.0 Includes: PROPHYLAXIS forvenous thrombosis, systemic embolization; TREATMENT for venous thrombosis and/or pulmonary embolus.HIGH RISK: Target INR is 2.5-3.5 for patients with mechanical heart valves.POCT-GLUCOSE [id number] 23:55:00 Test Item Value Reference Range Interpretation Comments POC-GLUCOSE METER 86 mg/dL 70-110 TESTED AT [place] [address] ([facility]) (test code = [facility] Dylon [facility] [address] 1538) B-TYPE NATRIURETIC FACTOR (BNP)2017-04-22 18:13:00 Test Item Value Reference Range Interpretation Comments B-TYPE NATRIURETIC PEPTIDE 1203 pg/mL 0-100 H ([facility]) (test code = 700) POCT-GLUCOSE [id number] 17:36:00 Test Item Value Reference Range Interpretation Comments POC-GLUCOSE METER 259 mg/dL 70-110 H TESTED AT [place] [address] ([facility]) (test code = [facility] 1538) [address] HEMOGLOBIN [id number] 14:24:00 Test Item Value Reference Range Interpretation Comments HEMOGLOBIN A1C ([facility]) (test code = 10.5 % 4.3-6.1 H 368) POCT-GLUCOSE [id number] 12:34:00 Test Item Value Reference Range Interpretation Comments POC-GLUCOSE METER 207 mg/dL 70-110 H TESTED AT [place] [address] ([facility]) (test code = [facility] 1538) [address] [id number] 07:53:00 Test Item Value Reference Range Interpretation Comments PHOSPHORUS ([facility]) (test code = 3.9 mg/dL 2.3-4.7 604) [id number] 07:53:00 Test Item Value Reference Range Interpretation Comments MAGNESIUM ([facility]) (test code = 1.6 mg/dL 1.6-2.6 627) BASIC METABOLIC [id number] 07:53:00 Test Item Value Reference Range Interpretation Comments SODIUM (AKER) 139 meq/L 136-145 (test code = 381) [...] NOT APPLICABLE FOR DIALYSIS PATIEN TS. TROPONIN [id number] 07:29:00 Test Item Value Reference Range Interpretation [...] acidosis, acute neurological disease, and persistent tachyarrhythmia.PROTHROMBIN [id number] 07:01:00 Test Item Value Reference Range Interpretation Comments PROTIME (BEAKER) (test code = 13.8 seconds 11.7-14.7 759) INR (BEAKER) (test code = 370) 1.1 <=5.9 RECOMMENDED COUMADIN/WARFARIN INR THERAPY RANGESSTANDARD DOSE: 2.0 - 3.0 Includes: PROPHYLAXIS forvenous thrombosis, systemic embolization; TREATMENT for venous thrombosis and/or pulmonary embolus.HIGH RISK: Target INR is 2.5-3.5 for patients with mechanical heart valves.POCT-GLUCOSE [id number] 06:28:00 Test Item Value Reference Range Interpretation Comments POC-GLUCOSE METER 198 mg/dL 70-110 H TESTED AT [place] [address] ([facility]) (test code = JULIANO Osborne [place] 1530) [address] CREATINE KINASE (CK), TOTAL AND [id number] 00:49:00 Test Item Value Reference Range Interpretation Comments CREATINE KINASE TOTAL ([facility]) 69 U/L 29-200 (test code = 380) CREATINE KINASE-MB ([facility]) (test 4.3 ng/mL 0.0-6.6 code = 750) CREATINE KINASE-MB INDEX ([facility]) 6.2 % (test code = 395) CK-MB Reference Range:<6.7 Normal6.7-10.0 Borderline>10.0 AbnormalTROPONIN [id number] 00:49:00 Test Item Value Reference Range Interpretation Comments TROPONIN I ([facility]) (test code = 0.05 ng/mL [...] acidosis, acute neurological disease, and persistent tachyarrhythmia.POCT-GLUCOSE [id number] 20:44:00 Test Item Value Reference Range Interpretation Comments POC-GLUCOSE METER 269 mg/dL 70-110 H TESTED AT [facility] 6720 ([facility]) (test code = JULIANO Osborne [place] 1530) [address]
[2021-06-01 05:35] LABS: Absolute Lymphocytes (CBC) 0.6 K/uL (0.7-4.9); Hematocrit 35.2 % (36.0-45.0); Lymphocytes % 6.1 % (15.3-44.8); MPV 6.9 fL (7.6-11.3); RBC Red Blood Cell Count 4.03 M/uL (3.86-4.86)
[2021-06-01 05:39] LABS: Protime INR 1.12
[2021-06-01 05:54] LABS: AST/SGOT 17 U/L (15-37); Albumin 2.1 g/dL (3.4-5.0); Alkaline Phosphatase 170 U/L (45-117); BUN Blood Urea Nitrogen 35 mg/dL (7-18); Bicarbonate 26 mmol/L (21-32); Bilirubin Direct 0.3 mg/dL (0-0.2); Bilirubin Total 1.1 mg/dL (0.2-1.0); Glucose Level 77 mg/dL (74-106); Magnesium 1.7 mg/dL (1.8-2.4); Potassium 4.8 mmol/L (3.5-5.1); Protein, Total 5.9 g/dL (6.4-8.2); Sodium Level 130 mmol/L (136-145)
[2021-06-01 05:58] LABS: ALT/SGPT < 10 U/L (12-78)
[2021-06-01 06:07] LABS: NT PRO-BNP 41634 pg/mL (<125)
[2021-06-01] MEDS ORDERED: LIDOCAINE 1% MPF 5 ML VIAL ONE (06:17)
[2021-06-01 07:00] LABS: Platelet Estimate ADEQ; White Blood Cell Scan OK (OK)
[2021-06-01 07:01] LABS: Anisocytosis 1+; Blood Morphology Comment NOTED (NOT SEEN); Polychromasia 1+
--- NOTE | 2021-06-01 07:17 | RAD REPORT ---
EXAM DESCRIPTION: RAD - Knee Left 2 View - 06/01/2021 5:48 am CLINICAL HISTORY: SMASH INJURY COMPARISON: Knee Left 3 View dated 05/17/2021 FINDINGS: No acute fracture. No malalignment. Mild medial compartment narrowing. Peripheral vascular calcifications. Degenerative changes are present at the patellofemoral compartment. IMPRESSION: No acute osseous abnormality involving the left knee.
--- NOTE | 2021-06-01 07:17 | RAD REPORT ---
EXAM DESCRIPTION: RAD - Knee Right 2 View - 06/01/2021 5:48 am CLINICAL HISTORY: SMASH INJURY COMPARISON: No comparisons FINDINGS: No acute fracture. No malalignment. Mild medial compartment narrowing. Enthesophyte along the proximal pole of the patella. Peripheral vascular calcifications. IMPRESSION: No acute osseous abnormality involving the right knee.
--- NOTE | 2021-06-01 07:19 | RAD REPORT ---
EXAM DESCRIPTION: RAD - Chest Single View - 06/01/2021 5:48 am CLINICAL HISTORY: TRAUMA COMPARISON: Chest Single View dated 05/17/2021; Chest Single View dated 04/09/2021; Chest Single View dated 03/25/2021; Chest Single View dated 02/24/2021 FINDINGS: Lines: IJ approach vascular line overlying the right atrium is again noted. Lungs: Presumably underlying atelectasis. Pleural: Small moderate right pleural effusion is unchanged. Cardiac: Cardiomegaly. Sternotomy. Bones: No acute fractures. Other: IMPRESSION: Right-sided pleural effusion and presumably underlying atelectasis is unchanged since .
--- NOTE | 2021-06-01 08:12 | EDPHYS ---
Physician Documentation [facility] Name: Christy Priest Age: 66 yrs Sex: Female : 1955 Arrival Date: 06/01/2021 Time: 05:03 Bed 7 Private MD: ED Physician Alessio Parry HPI: 06/01 05:22 This 66 yrs old Female presents to ER via EMS with complaints of Fall Injury. sp3 05:22 6-year-old female wheelchair-bound with history of diabetes, COPD, end-stage renal sp3 disease on dialysis, hypertension presents to the ED for ground-level fall from wheelchair onto table then onto ground. Patient states that she cannot remember exactly what happened and cannot ascertain whether she passed out or simply fell asleep. No prior history of the same. Patient has a laceration to the forehead and abrasions to bilateral knees. She denies neck pain, chest pain, shortness of breath, back pain, abdominal pain, nausea, vomiting, diarrhea, rash, fever, known sick contacts, travel history, any other ROS at this time. She does have a mild headache she states. Patient was here for similar episode on May 18, 2021.. Historical: - Allergies: 05:13 Nitroglycerin; st1 05:13 tramadol; st1 05:13 Vancomycin; st1 05:13 Morphine; st1 - PMHx: 05:13 COPD; Dialysis; diabetes mellitus; Hypertensive disorder; neuropathy; st1 - Immunization history: Last tetanus immunization: unknown. - Social history:: Smoking status: Patient denies any tobacco usage or history of. Patient/guardian denies using alcohol, street drugs, IV drugs. ROS: 05:23 Constitutional: Negative for fever, chills, and weight loss, Eyes: Negative for injury, sp3 pain, redness, and discharge, ENT: Negative for injury, pain, and discharge, Neck: Negative for injury, pain, and swelling, Cardiovascular: Negative for chest pain, palpitations, and edema, Respiratory: Negative for shortness of breath, cough, wheezing, and pleuritic chest pain, Abdomen/GI: Negative for abdominal pain, nausea, vomiting, diarrhea, and constipation, Skin: Negative for injury, rash, and discoloration, Psych: Negative for depression, anxiety, suicide ideation, homicidal ideation, and hallucinations, Allergy/Immunology: Negative for hives, rash, and allergies, Endocrine: Negative for neck swelling, polydipsia, polyuria, polyphagia, and marked weight changes. 05:23 All other systems are negative. Exam: 05:24 Constitutional: This is a well developed, well nourished patient who is awake, alert, sp3 and in no acute distress. Eyes: Pupils equal round and reactive to light, extra-ocular motions intact. Lids and lashes normal. Conjunctiva and sclera are non-icteric and not injected. Cornea within normal limits. Periorbital areas with no swelling, redness, or edema. ENT: Nares patent. No nasal discharge, no septal abnormalities noted. External auditory canals are clear. Oropharynx with no redness, swelling, or masses, exudates, or evidence of obstruction, uvula midline. Mucous membranes moist. Neck: Trachea midline, no thyromegaly or masses palpated, and no cervical lymphadenopathy. Supple, full range of motion without nuchal rigidity, or vertebral point tenderness. No Meningismus. Chest/axilla: Normal chest wall appearance and motion. Nontender with no deformity. No lesions are appreciated. Cardiovascular: Regular rate and rhythm with a normal S1 and S2. No gallops, murmurs, or rubs. Normal PMI, no JVD. No pulse deficits. Respiratory: Lungs have equal breath sounds bilaterally, clear to auscultation and percussion. No rales, rhonchi or wheezes noted. No increased work of breathing, no retractions or nasal flaring. Abdomen/GI: Soft, non-tender, with normal bowel sounds. No distension or tympany. No guarding or rebound. No evidence of tenderness throughout. Back: No spinal tenderness. No costovertebral tenderness. Full range of motion. Neuro: Awake and alert, GCS 15, oriented to person, place, time, and situation. Cranial nerves II-XII grossly intact. Motor strength 5/5 in all extremities. Sensory grossly intact. Cerebellar exam normal. Normal gait. Psych: Awake, alert, with orientation to person, place and time. Behavior, mood, and affect are within normal limits. 05:24 Head/face: For hematoma and 1.5 cm laceration noted.. 05:24 Musculoskeletal/extremity: Limited exam however bilateral skin tears/abrasions noted on patient's knees.. 05:25 ECG was reviewed by the Attending Physician. EKG demonstrates normal sinus rhythm at 64 sp3 bpm with right bundle branch block, nonspecific ST/T changes diffusely without evidence of acute ischemia. Vital Signs: 05:09 BP 103 / 47; Pulse 65; Resp 12; Pulse Ox 96% on R/A; Weight 75.75 kg; Height 5 ft. 8 st1 in. (172.72 cm); Pain 10/10; 05:12 Temp 97.7(O); st1 06:20 BP 99 / 70; Pulse 67; Resp 16; Pulse Ox 100% on R/A; st1 06:45 BP 119 / 50; Pulse 67; Resp 11; Pulse Ox 96% on R/A; st1 07:00 BP 112 / 44; Pulse 66; Resp 14; Pulse Ox 98% ; bp 08:00 BP 116 / 58; Pulse 67; Resp 18; jh6 05:09 Body Mass Index 25.39 (75.75 kg, 172.72 cm) st1 [place] Coma Score: 05:09 Eye Response: spontaneous(4). Verbal Response: oriented(5). Motor Response: obeys st1 commands(6). Total: 15. Trauma Score (Adult): 05:09 Eye Response: spontaneous(1); Verbal Response: oriented(1); Motor Response: obeys st1 commands(2); Systolic BP: > 89 mm Hg(4); Respiratory Rate: 10 to 29 per min(4); Corby Score: 15; Trauma Score: 12 Laceration: 06:36 Wound Repair of 3cm ( 1.2in ) subcutaneous laceration to forehead. Distal jmm neuro/vascular/tendon intact. Anesthesia: Local anesthetic administered with 5 mls of 1% lidocaine. Wound prep: Simple cleansing with hibiclenz by vt. Skin closed with 6 5-0 Prolene using simple sutures and sterile technique. Patient tolerated well. 09:40 Wound Repair of 8cm ( 3.1in ) subcutaneous laceration to right leg. Distal jmm neuro/vascular/tendon intact. Anesthesia: Local anesthetic administered with 8 mls of 1% lidocaine w/ Epi. Wound prep: Simple cleansing with betadine. Skin closed with 6 3-0 Prolene using simple sutures and sterile technique. Patient tolerated well. MDM: 05:25 Data reviewed: vital signs, nurses notes. ED course: 66-year-old female with syncope sp3 versus mechanical fall from wheelchair. Diagnoses include forehead hematoma, forehead laceration, bilateral knee abrasions. Will work patient up from a syncope standpoint and obtain CT scans of the head, C-spine, x-rays of the chest, and bilateral knees. If work-up is negative and patient is back to baseline she can return home. Otherwise will admit for any significant abnormalities requiring hospitalization. Patient will be signed out to daytime team for laceration repair and final disposition.. 05:28 Patient medically screened. sp3 08:14 Physician consultation: Sharri Fernando MD and will see patient in office, OK WITH carlos ELEVATED TROP BEING DC'D. NO FURTHER TROPONIN'S NEEDED, OK TO DC , DIALYSIS IN THE AM. 06/01 05:13 Order name: Basic Metabolic Panel sp3 06/01 05:13 Order name: CBC with Diff; Complete Time: 07:42 sp3 06/01 05:13 Order name: LFT's; Complete Time: 06:12 sp3 06/01 05:13 Order name: Magnesium; Complete Time: 06:12 sp3 06/01 05:13 Order name: NT PRO-BNP; Complete Time: 06:12 sp3 06/01 05:13 Order name: PT-INR; Complete Time: 06:12 sp3 06/01 05:13 Order name: Troponin HS; Complete Time: 06:12 sp3 06/01 05:13 Order name: XRAY Chest (1 view); Complete Time: 07:42 sp3 06/01 05:13 Order name: Basic Metabolic Panel; Complete Time: 06:12 EDMS 06/01 05:18 Order name: CT Head C Spine tw5 06/01 05:22 Order name: Knee Left 2 View XRAY; Complete Time: 07:42 sp3 06/01 05:22 Order name: Knee Right 2 View XRAY; Complete Time: 07:42 sp3 06/01 05:37 Order name: CBC Smear Scan; Complete Time: 07:42 EDMS 06/01 05:13 Order name: EKG; Complete Time: 05:13 sp3 06/01 05:13 Order name: Cardiac monitoring; Complete Time: 05:16 sp3 06/01 05:13 Order name: EKG - Nurse/Tech; Complete Time: 05:24 sp3 06/01 05:13 Order name: IV Saline Lock; Complete Time: 05:25 sp3 06/01 05:13 Order name: Labs collected and sent; Complete Time: 05:28 sp3 06/01 05:13 Order name: O2 Per Protocol; Complete Time: 05:16 sp3 06/01 05:13 Order name: O2 Sat Monitoring; Complete Time: 05:16 sp3 Administered Medications: 06:20 Drug: Lidocaine (1 %) 5 ml Volume: 5 ml; Route: Infiltration; st1 09:14 Drug: Lidocaine-Epinephrine -1%: (1:100,000) 20 ml {Note: AT B/S.} Volume: 20 ml; bp Route: Infiltration; 09:15 Drug: [place] (HYDROcodone-acetaminophen) 5 mg-325 mg 1 tabs Route: PO; bp 10:44 Follow up: Response: Pain is decreased bp 09:15 Drug: Zofran (Ondansetron) 4 mg Route: PO; bp 10:44 Follow up: Response: No adverse reaction bp Disposition: 08:13 Co-signature as Attending Physician, Alessio Parry MD I agree with the assessment and carlos plan of care. Disposition Summary: 06/01/21 08:11 Discharge Ordered Location: Home carlos Problem: new carlos Symptoms: have improved carlos Condition: Stable carlos Diagnosis - Fall on same level, unspecified carlos - Laceration without foreign body of other part of head carlos - Hypomagnesemia carlos - End stage renal disease - on HD , FRI carlos Followup: carlos - With: Private Physician - When: 1 - 2 days - Reason: Recheck today's complaints, Continuance of care, Re-evaluation by your physician Followup: carlos - With: Sharri Fernando MD - When: Tomorrow - Reason: Recheck today's complaints, Continuance of care, Re-evaluation by your physician Discharge Instructions: - Discharge Summary Sheet carlos - Hypomagnesemia carlos - Laceration Care, Adult carlos - Dialysis carlos - Laceration Care, Adult, [id number] carlos - Hemodialysis carlos - Eating Plan for Dialysis carlos - Hemodialysis, [id number] carlos Forms: - Medication Reconciliation Form carlos - Thank You Letter carlos - Antibiotic Education carlos - Prescription Opioid Use carlos Prescriptions: - Cephalexin 500 mg Oral Capsule - take 1 capsule by ORAL route every 6 hours for 7 days; 28 capsule; Refills: 0, carlos Product Selection Permitted Signatures: Dispatcher [employer] EDMS Alessio Parry MD MD cha Mickail, Joel, PA PA jmm Peltier, Brian, GUILHERME RN bp Sebastian Flores MD MD sp3 Jael Mccarthy RN RN st1 Corrections: (The following items were deleted from the chart) 05:28 05:22 6-year-old female wheelchair-bound with history of diabetes, COPD, end-stage sp3 renal disease on dialysis, hypertension presents to the ED for ground-level fall from wheelchair onto table then onto ground. Patient states that she cannot remember exactly what happened and cannot ascertain whether she passed out or simply fell asleep. No prior history of the same. Patient has a laceration to the forehead and abrasions to bilateral knees. She denies neck pain, chest pain, shortness of breath, back pain, abdominal pain, nausea, vomiting, diarrhea, rash, fever, known sick contacts, travel history, any other ROS at this time. She does have a mild headache she states.. sp3
--- NOTE | 2021-06-01 08:12 | ER ---
Nurse's Notes [facility] Name: Christy Priest Age: 66 yrs Sex: Female : 1955 Arrival Date: 06/01/2021 Time: 05:03 Bed 7 Private MD: Diagnosis: Fall on same level, unspecified;Laceration without foreign body of other part of head;Hypomagnesemia;End stage renal disease-on HD , FRI Presentation: 06/01 05:06 Chief complaint: EMS states: The patient fell out of her wheelchair striking her head st1 on the kitchen table after falling asleep. Care prior to arrival: None. Mechanism of Injury: Fall wheelchair. Trauma event details: Injury occurred: at home. 05:06 Acuity: DENNY 2 st1 05:06 Method Of Arrival: EMS: [facility] st1 05:12 Coronavirus screen: Vaccine status: Patient reports being unvaccinated. Client denies st1 travel out of the [place] in the last 14 days. Ebola Screen: No symptoms or risks identified at this time. Initial Sepsis Screen: Does the patient meet any 2 criteria? No. Patient's initial sepsis screen is negative. Does the patient have a suspected source of infection? No. Patient's initial sepsis screen is negative. Risk Assessment: Do you want to hurt yourself or someone else? Patient reports no desire to harm self or others. Onset of symptoms was June 01, 2021. Trauma Activation: Stat Physician: ED Physician; Name: Mark; Notified At: 05:00; Arrived At: 05:02 Physician: General Surgeon; Name: ; Notified At: 05:00; Arrived At: Physician: Radiology; Name: ; Notified At: 05:00; Arrived At: Physician: Respiratory; Name: ; Notified At: 05:00; Arrived At: Physician: Lab; Name: ; Notified At: 05:00; Arrived At: Historical: - Allergies: 05:13 Nitroglycerin; st1 05:13 tramadol; st1 05:13 Vancomycin; st1 05:13 Morphine; st1 - PMHx: 05:13 COPD; Dialysis; diabetes mellitus; Hypertensive disorder; neuropathy; st1 - Immunization history: Last tetanus immunization: unknown. - Social history:: Smoking status: Patient denies any tobacco usage or history of. Patient/guardian denies using alcohol, street drugs, IV drugs. Screenin:09 Abuse screen: Denies threats or abuse. Tuberculosis screening: No symptoms or risk st1 factors identified. 05:14 Nutritional screening: No deficits noted. Fall Risk Fall in past 12 months (25 points). st1 No secondary diagnosis (0 pts). IV access (20 points). Ambulatory Aid- Crutches/Cane/Walker (15 pts). Gait- Impaired (20 pts.). Mental Status- Oriented to own ability (0 pts). Total Merlos Fall Scale indicates High Risk Score (45 or more points). Primary Survey: 05:09 NO uncontrolled hemorrhage observed. A: The patient needs verbal stimulation to st1 respond. Airway: patent. Breathing/Chest: Respiratory pattern: regular, Respiratory effort: spontaneous, unlabored, Breath sounds: clear, bilaterally. Chest inspection: symmetrical rise and fall of the chest. Circulation: Cardiac rhythm: sinus rhythm. Disability Alert. Exposure/Environment: A warming method has been applied: A warm blanket has been provided to the patient. 05:14 Reassessment Airway Airway Patent Breathing/Chest Respiratory pattern Regular st1 Respiratory effort Spontaneous Unlabored Breath sounds Clear Chest inspection Symmetrical Circulation Heart rhythm Sinus rhythm Disability Alert. Secondary Survey: 05:09 HEENT: Head Other Laceration to left forehead. Skin tears to bilateral knees. st1 Assessment: 05:06 General: Appears in no apparent distress. uncomfortable, obese, well groomed, Behavior st1 is calm, cooperative. 05:09 Pain: Complains of pain in Tailbone Pain does not radiate. Pain currently is 10 out of st1 10 on a pain scale. 07:00 Reassessment: RECD REPORT FROM JAEL VANEGAS. 66YO HF S/P FALL FROM WHEELCHAIR. WOUNDS bp REPAIRED, ALL CURRENT ORDERS COMPLETE. DISPO PENDING. 08:30 Reassessment: Patient is alert, oriented x 3, equal unlabored respirations, skin jh6 warm/dry/pink. while standing to turn and sit in wheelchair pt caught leg on inner foot peg. Aprox 14x4cm lac noted to lateral lower extremity. direct pressure applied with bandage and MD Parry notified. 08:54 Reassessment: FAMILY AT B/S. D/C ON HOLD FOR NEW SKIN TEAR REPAIR. bp 10:00 Reassessment: DRESSINGS REPLACED, CNO AT B/S WITH FAMILY. bp 10:42 Reassessment: PT D/C WITH FAMILY VIA W/C. bp Vital Signs: 05:09 BP 103 / 47; Pulse 65; Resp 12; Pulse Ox 96% on R/A; Weight 75.75 kg; Height 5 ft. 8 st1 in. (172.72 cm); Pain 10/10; 05:12 Temp 97.7(O); st1 06:20 BP 99 / 70; Pulse 67; Resp 16; Pulse Ox 100% on R/A; st1 06:45 BP 119 / 50; Pulse 67; Resp 11; Pulse Ox 96% on R/A; st1 07:00 BP 112 / 44; Pulse 66; Resp 14; Pulse Ox 98% ; bp 08:00 BP 116 / 58; Pulse 67; Resp 18; jh6 05:09 Body Mass Index 25.39 (75.75 kg, 172.72 cm) st1 [place] Coma Score: 05:09 Eye Response: spontaneous(4). Verbal Response: oriented(5). Motor Response: obeys st1 commands(6). Total: 15. Trauma Score (Adult): 05:09 Eye Response: spontaneous(1); Verbal Response: oriented(1); Motor Response: obeys st1 commands(2); Systolic BP: > 89 mm Hg(4); Respiratory Rate: 10 to 29 per min(4); Corby Score: 15; Trauma Score: 12 ED Course: 05:03 Patient arrived in ED. wm 05:06 Jael Mccarthy, GUILHERME is Primary Nurse. st1 05:08 Triage completed. st1 05:08 Sebastian Flores MD is Attending Physician. sp3 05:09 Patient has correct armband on for positive identification. Bed in low position. Call st1 light in reach. Side rails up X2. 05:12 Patient maintains SpO2 saturation greater than 95% on room air. st1 05:15 Arm band placed on right wrist. st1 05:15 Thermoregulation: warm blanket given to patient. st1 05:25 Inserted saline lock: 20 gauge in right hand, using aseptic technique. Blood collected. st1 05:27 Troponin HS Sent. st1 05:27 PT-INR Sent. st1 05:28 NT PRO-BNP Sent. st1 05:28 Magnesium Sent. st1 05:28 LFT's Sent. st1 05:28 CBC with Diff Sent. st1 05:28 Basic Metabolic Panel Sent. st1 05:28 XRAY Chest (1 view) Sent. st1 05:29 Basic Metabolic Panel Sent. st1 05:48 XRAY Chest (1 view) In Process Unspecified. EDMS 05:48 Knee Left 2 View XRAY In Process Unspecified. EDMS 05:48 Knee Right 2 View XRAY In Process Unspecified. EDMS 05:52 CT Head C Spine In Process Unspecified. EDMS 05:59 Notified ED physician of a critical lab result(s). troponin 71.7. tw5 06:07 Wound care: to #1 Skin tear bilateral knees. cleaned with chlorhexidine and sterile st1 water. dressed with adaptic, 4x4 kerlix and secured with silk tape. #2 old skin tear to left elbow cleaned with chlorhexidine and sterile water, dressed with adaptic, 4x4, kerlix secured with silk tape, #3 left forehead laceration cleaned with chlorhexidine and sterile water. DEBBIE Vasquez notified that the forehead laceration needs to be sutured. Patient tolerated well. 06:21 Assist provider with laceration repair on Left forehead that was between 7.6 to 12.5 cm st1 using sutures. Set up tray. Performed by Pedro LEWIS Dressed with 4X4s, Adaptic, Kerlix, Patient tolerated well. 06:24 Attending Physician role handed off by Sebastian Flores MD carlos 06:24 Alessio Parry MD is Attending Physician. carlos 07:13 Primary Nurse role handed off by Jael Mccarthy, GUILHERME bp 07:13 Jose Cruz Meyer, GUILHERME is Primary Nurse. bp 08:07 Sharri Fernando MD is Referral Physician. carlos 08:56 IV discontinued, intact, bleeding controlled, No redness/swelling at site. Pressure bp dressing applied. Administered Medications: 06:20 Drug: Lidocaine (1 %) 5 ml Volume: 5 ml; Route: Infiltration; st1 09:14 Drug: Lidocaine-Epinephrine -1%: (1:100,000) 20 ml {Note: AT B/S.} Volume: 20 ml; bp Route: Infiltration; 09:15 Drug: [place] (HYDROcodone-acetaminophen) 5 mg-325 mg 1 tabs Route: PO; bp 10:44 Follow up: Response: Pain is decreased bp 09:15 Drug: Zofran (Ondansetron) 4 mg Route: PO; bp 10:44 Follow up: Response: No adverse reaction bp Intake: 10:43 PO: 0ml; Total: 0ml. bp Output: 10:43 Urine: 0ml; Total: 0ml. bp Outcome: 08:11 Discharge ordered by . carlos 10:43 Discharged to home via wheelchair, with family. bp 10:43 Condition: stable 10:43 Discharge instructions given to patient, family, Instructed on discharge instructions, follow up and referral plans. medication usage, wound care, Demonstrated understanding of instructions, follow-up care, medications, wound care, Prescriptions given X 1. 10:43 WOUND REPAIRPatient's length of stay extended due to bp 10:45 Patient left the ED. bp Signatures: Dispatcher [employer] EDMS Alessio Parry MD MD cha Peltier, Brian, RN RN Yesenia Ozuna Setul, MD MD sp3 Yoon William tw5 Mariela Quintanilla RN RN jh6 Jael Mccarthy RN RN st1
[2021-06-01] MEDS ORDERED: LIDOCAINE 1% W/EPI 1:100,000 MDV 50 ML VIAL ONE (09:07)
[2021-06-01] MEDS ORDERED: ONDANSETRON 4 MG (ODT) TAB ONE (09:20)
[2021-06-01] MEDS ORDERED: HYDROCODONE/APAP 5/325 MG TAB ONE (09:20)
[2021-06-01] MEDS ORDERED: Mastisol Adhesive Liq ONE (10:04)
--- NOTE | 2021-06-01 10:22 | RAD REPORT ---
EXAM DESCRIPTION: CT - Head C Spine Mpr Wo Con - 06/01/2021 6:56 am CLINICAL HISTORY: 66 years Female SMASH INJURY, status post fall with multiple lacerations mostly on her right side TECHNIQUE: Multiple axial CT images of the brain and cervical spine were performed followed by sagit nano and coronal reconstructed images. The CT study is performed according to ALARA (as low as reasona octavio achievable) or ALARA/IMAGE GENTLY, with automatic adjustment of mA and/or kV according to patient size. Performed on: 06/01/2021 at 5:35 AM COMPARISON: 05/17/2021. FINDINGS: CT HEAD: There is no evidence of mass, acute mass effect or midline shift. There are no acute extra-axial flui d collections. There is no evidence of acute intracranial hemorrhage. The cerebral sulci and ventricles are prominent consistent with mild cerebral volume loss. There are scattered areas of decreased attenuation within the subcortical and periventricular white m atter most likely due to mild chronic microangiopathy. There is mild mucosal thickening of the paranasal sinuses. The mastoid air cells are clear. The orbital contents are grossly unremarkable. No acute osseous abnormalities are identified. There is right frontal scalp soft tissue swelling and laceration. CT CERVICAL SPINE: The cervical vertebrae are normal in height. There is normal alignment of the vertebrae. There is mil d stable disc space narrowing at C5-C6. Bone mineralization is normal. The atlanto-axial articulat ion is preserved and the odontoid process is intact. There is normal alignment of the facet joints on the parasagittal images. There are mild degenerative changes of the facet joints particularly on the left at C2-C3. There is no evidence of acute fracture or subluxation. There is multilevel mild canal stenosis from C 3-C4 through C5-C6 secondary to disc osteophyte complexes. There is mild bilateral C5-C6 neural for aminal stenosis secondary to uncovertebral joint and facet joint hypertrophy. The prevertebral and pa raspinal soft tissues are unremarkable. There are calcifications along the carotid and vertebral rudy loly. The lung apices are clear. IMPRESSION: CT HEAD: 1. There is no evidence of acute intracranial pathology or significant change since the prior study. 2. Mild cerebral atrophy with findings compatible with chronic microangiopathy. 3. Right frontal scalp soft tissue swelling and laceration. CT CERVICAL SPINE: 1. No evidence of acute cervical spine injury. 2. Degenerative changes of the cervical spine similar when compared to the prior study. 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 The interpreting r adiologist is fully responsible for the content of the report.
[2021-06-01 10:53] VITALS: TEMP 97.7
[2021-06-01 10:57] VITALS: O2SAT 98
[2021-06-01 10:58] VITALS: BP 116/58
--- NOTE | 2021-06-01 11:29 | EKG ---
Test Date: 2021-06-01 Test Time: 05:20:30 Building Rental Manager: HARSH MEASUREMENT RESULTS: Intervals: Rate: 64 NC: 174 QRSD: 112 QT: 466 QTc: 480 [place]: P: 94 NC: 174 QRS: 149 T: 103 INTERPRETIVE STATEMENTS: Suspect arm lead reversal, interpretation assumes no reversal Normal sinus rhythm Right bundle branch block Left posterior fascicular block Bifascicular block Bifascicular block now present T-wave abnormality now present Possible ischemia now present Incomplete right bundle-branch block no longer present Myocardial infarct finding still present Electronically Signed On 06-01-21 11:28:47 BRICK TOSSER by Taj Raymond
== END 2021-06-01 10:45 | disposition home or self-care (01) ==
LOC: ER 05:02
PROC: 0JQ10ZZ Repair Face Subcutaneous Tissue and Fascia, Open Approach (ICD-10-PCS; principal; 2021-06-01)
PROC: 0JQN0ZZ Repair Right Lower Leg Subcutaneous Tissue and Fascia, Open Approach (ICD-10-PCS; 2021-06-01)
DX: S01.81XA Laceration without foreign body of other part of head, initial encounter (principal); S81.811A Laceration without foreign body, right lower leg, initial encounter; E83.42 Hypomagnesemia; E11.22 Type 2 diabetes mellitus with diabetic chronic kidney disease; I12.0 Hypertensive chronic kidney disease with stage 5 chronic kidney disease or end stage renal disease; N18.6 End stage renal disease; W05.0XXA Fall from non-moving wheelchair, initial encounter; Z88.5 Allergy status to narcotic agent; Z99.2 Dependence on renal dialysis; Z88.3 Allergy status to other anti-infective agents; Z88.8 Allergy status to other drugs, medicaments and biological substances
CPT/HCPCS: 36415; 70450; 71045; 72125; 80048; 80076; 83735; 83880; 84484; 85025; 85610; 93005; 99285; G0390

== ENCOUNTER 2021-06-11 13:01 | Inpatient (IN) | payer OTHER ==
--- OUTSIDE RECORDS SUMMARY | 2021-06-11 13:19 | XMS REPORT | Continuity of Care Document ---
:1955 Author Organization [facility] t Address [address] [place] [address] Care Team Providers Name Role Phone THA [...] Clinician Unavailable LISA VERDUZCO Admitting Clinician Unavailable MGAGIE MCCONNELL Admitting Clinician Unavailable Mary FIERRO Admitting Clinician Unavailable Payers Payer Name Policy Type Policy Number Effective Date Expiration Date S ource MEDICAID MOLINA [id number] 2011 00:00:00 [facility] [id number] MEDICAID 00:00:00 Problems Condition Condition Condition [...] rosis of 05-19 [place] g of this Medical artery of [...] l mellitus mellitus 00 Center with with pickler helper pickler helper y y disorder, disorder, with with [...] d COPD d COPD Clinics 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 Problem Active [facility] [...] in HCl Reaction [facility] Nitrogly Adverse Active vomiting [facility] cerin Reaction [facility] Morphine Adverse Active headache, [facility] Sulfate Reaction breathing [facility] Clindamy Adverse Active vomiting [facility]ley HCl Reaction [facility] NO KNOWN Drug Active [facility] ALLERGIE Class ity of [facility] Family History Family Member Diagnosis Comments Start Date Stop Date Source Natural father COPD [facility] Natural father Cancer [facility] Natural father Hypertension [facility] Natural mother No Known Problem [facility] Natural sister Asthma [facility] Lay [...] 2017-06-10 KATHRYN Pedro - pack-years 00:00:00 00:00:00 [facility] Tobacco use and 2017-06-10 2017-06-[address] [facility] [address] Janna kes - exposure 00:00:00 00:00:[address] [facility] History of tobacco 2017-05-[address] [facility] - use 00:00[facility]00 [facility] Sex Assigned At [birth year] KATHRYN Mac kes - 00:00:00 00:00:[address] [facility] Smoking Status Start Date Stop Date Source Former smoker 2017-06-10 00:00:00 2017-06-10 00:00:[address] [facility] Medications Ordered Filled Start Stop Current Ordering Indication Dosage Frequency Signature Comments Components Source Medication Medication Date Date Medication? Clinician (SIG) Name Name mupirocin 2019-03 Yes QD Apply [facility] (BACTROBAN) 0-03 topically Lay [facility] - 2 % 10:49: daily. Medical ointment 00 [place] collagenase 2019-03 Yes QD Apply [facility] (SANTYL) 0-03 topically [facility] - 250 units/g 10:49: daily. Medi marilin ointment [place] bumetanide 2019-03 Yes 2mg [id number] Take [address] (BUMEX) 2 0-03 [id number] by mouth 3 [facility] - MG tablet [...] ointment 00 Center bumetanide 2019-03 Yes 2mg Q.[id number] Take [address] (BUMEX) 2 0-03 [id number] by mouth 3 [facility] - MG tablet [...] 2 % 10:49: daily. Medical ointment 00 [place] collagenase 2019-03 Yes QD Apply [facility] t (SANTYL) 0-03 topically [facility] - 250 units/g 10:49: daily. Medi marilin ointment 00 [place] bumetanide 2019-03 Yes 2mg [id number] Take [address] (BUMEX) 2 0-03 [id number] by mouth 3 [facility] - MG tablet [...] units/g 10:49: daily. Medi marilin ointment 00 [place] bumetanide 2019-03 Yes 2mg Q.[id number] Take [address] (BUMEX) 2 0-03 [id number] by mouth 3 [facility] - MG tablet [...] MG tablet 10:49: daily. Medica l 00 [place] ferrous 2019-03 Yes 325mg Take 325 [facility] [...] units/g 10:49: daily. Medi marilin ointment 00 [place] bumetanide 2019-03 Yes 2mg Q.[id number] Take [address] (BUMEX) 2 0-03 [id number] by mouth 3 [facility] - MG tablet [...] tablet 00 daily with Center breakfast. levoFLOXaci 2019-03- No 250mg QD Take 1 [...] daily. Medical 18 :00 Center aspirin 81 2019-0 2020- No 81mg QD Take [address] MG EC 12-15 by mouth [facility] - tablet 11:03: 00:00 daily. Medical 18 :00 Center isosorbide 2019-0 2020- No 30mg QD Take [address] mononitrate 12-15 by mouth Lay es - (IMDUR) 30 10:59: 00:00 daily. Medi marilin MG 24 hr 29 :00 Center tablet isosorbide 2019-0 2020- No 30mg QD Take [...] needed. Max Daily Amount: 4 tablets gabapentin 2018-0 Yes Take [address] [facility] [...] Center and 300 mg at night. ferrous 2018-0 2020- No 325mg Q.5D Take [address] sulfate 325 08-09-17 tablet [facility] - (65 FE) MG 00:00: 00:00 (325 mg Med ical tablet 00 :00 total) by Center mouth 2 (two) times daily. ferrous 2018-0 2020- No 325mg Q.5D Take [address] sulfate 325 5-03 08-17 tablet [facility] - (65 FE) MG [...] No 2{puff} Inhale [address] pratropium 3-07 07- puffs by Luke s - (COMBIVENT 00:00: [...] No 2{puff} Inhale [address] pratropium 3-07 07-17 puffs by Luke s - (COMBIVENT 00:00: [...] - MOUTH Memoria EVERYDAY l AT BEDTIME [facility] Isosorbide Isosorbide Yes Franki TAKE [address] [facility] Mononitrate Mononitrate Jas TABLET BY [facility]ukes - ER ER MOUTH Memoria EVERY DAY l [facility] NIFEdipine NIFEdipine Yes Franki TAKE [address] [facility] ER ER Jas TABLET BY [facility] - MOUTH Memoria EVERY DAY l [facility]ics BuPROPion BuPROPion Yes Franki TAKE [address] HCl HCl Jas TABLET BY [facility] - MOUTH Memoria EVERY DAY l [facility] Acetaminoph Acetaminoph Yes Franki (Schedule [facility] en-Codeine en-Codeine Jas III Drug) Shannon - #3 #3 TAKE 1 Memoria TABLET BY l MOUTH Outpati EVERY 6 ent HOURS Clinics NEEDED FOR PAIN Carvedilol Carvedilol Yes Franki TAKE [address] [facility] Jas TABLET BY Lukes - MOUTH Memoria TWICE A l DAY [facility] Advair Advair Yes Franki INHALE 1 [facility] Diskus Diskus Jas DOSE BY [facility] - MOUTH Memoria TWICE l DAILY. [facility] RINSE ent MOUTH Clinics AFTER USE Atorvastati Atorvastati Yes Franki TAKE [address] [facility] [facility] n Calcium n Calcium Jas TABLET BY [facility] - MOUTH Memoria EVERY DAY l [facility] Allopurinol Allopurinol Yes Franki TAKE [address] [facility] Jas TABLET BY [facility]ukes - MOUTH Memoria TWICE A l DAY [facility]ics Gabapentin Gabapentin Yes [...] cm Heart rate 2020-01-01 08:41:00 60 /min [facility] Respiratory rate 2020-01-01 08:41:00 18 /min [facility] Oxygen saturation in 2020-01-01 08:41:00 100 /min [facility] - Arterial blood by Medical Ce nter Pulse oximetry Systolic blood 2020-01-01 08:32:00 162 mm[Hg] [facility] Diastolic blood 2020-01-01 08:32:00 73 mm[Hg] [facility] Body temperature 2020-01-01 07:41:00 36.56 Deanne [facility] Body weight 2019-12-30 04:28:00 78.2 kg [facility] BMI 2019-12-30 04:28:00 27.00 kg/m2 [facility] Body height 2019-12-25 21:05:00 170.2 cm [facility] Procedures Procedure Date / Time Performed Performing Clinician [facility] e REPORT OF PROCEDURE - 2020-01-05 08:40:02 Provider, [facility] ENDOSCOPY SCAN [facility] RHYTHM STRIP - SCAN 2020-01-05 08:31:43 Provider, [facility] RHYTHM STRIP - SCAN 2020-01-05 08:31:42 Provider, [facility] RHYTHM STRIP - SCAN 2020-01-05 08:31:40 Provider, [facility] CARDIAC CATH REPORT - 2020-01-05 08:31:15 Provider, [facility] CARDIAC CATH REPORT - 2020-01-05 08:31:13 Provider, [facility] POCT-GLUCOSE METER 2020-01-01 06:33:00 Pat Mohamud [facility] CBC W/PLT COUNT & AUTO 2020-01-01 05:37:00 [facility]PREHENSIVE [facility]OLIC 2020-01-01 05:37:00 Lytle [facility] POCT-GLUCOSE METER 2019-12-31 20:50:00 Cade [facility] POCT-GLUCOSE METER 2019-12-31 18:00:00 Pat Mohamud [facility] POCT-GLUCOSE METER 2019-12-31 11:42:00 [facility] POCT-GLUCOSE METER 2019-12-31 06:29:00 [facility] CBC W/PLT COUNT & AUTO 2019-12-31 06:05:[address] [facility] S [facility] COMPREHENSIVE METABOLIC 2019-12-31 06:05:00 LytleLily [facility] MAGNESIUM 2019-12-31 06:05:00 Pat Mohamud [facility] POCT-GLUCOSE METER 2019-12-30 20:13:00 Cade Evensruel [facility] POCT-GLUCOSE METER 2019-12-30 16:26:00 Cade Pat [facility] SURGICALLY OBTAINED 2019-12-30 13:59:46 Cade Evensruel [facility] - CULTURE + GRAM STAIN Medical Matthew ter ANAEROBIC CULTURE 2019-12-30 13:59:46 Cade Evensruel [facility] SURGICALLY OBTAINED 2019-12-30 13:54:56 Pat Mohamud [facility] - CULTURE + GRAM STAIN Medical [facility] ter ANAEROBIC CULTURE 2019-12-30 13:54:56 Cade Evensruel [facility] TISSUE EXAM 2019-12-30 13:38:[address] [facility] I&D,BONE FOOT 2019-12-30 13:11:00 Tala Santacruz [facility] POCT-GLUCOSE METER 2019-12-30 11:39:00 Cade [facility] ECG 12-LEAD 2019-12-30 10:53:36 Unknown, Hl7 [facility] POCT-GLUCOSE METER 2019-12-30 05:39:00 Pat Mohamud [facility] SARS-COV2/RT-PCR ([facility] & 2019-12-30 05:11:00 [facility] CBC W/PLT COUNT & AUTO 2019-12-30 05:09:[address] [facility] S [facility] COMPREHENSIVE METABOLIC 2019-12-30 05:09:00 Lily Echavarria [facility] POCT-GLUCOSE METER 2019-12-29 21:09:00 [facility]SE METER 2019-12-29 11:10:00 [facility] HEM[facility]PATIENT 2019-12-29 08:12:17 Brandie Khan [facility] POCT-GLUCOSE METER 2019-12-29 06:10:00 Cade [facility] CBC W/PLT COUNT & AUTO 2019-12-29 05:50:00 LytleLily [facility] COMPREHENSIVE METABOLIC 2019-12-29 05:50:[facility] POCT-GLUCOSE METER 2019-12-28 20:37:00 Cade [facility] POCT-GLUCOSE METER 2019-12-28 17:38:00 Cade [facility] POCT-GLUCOSE METER 2019-12-28 13:12:00 Cade [facility] POCT-GLUCOSE METER 2019-12-28 05:43:00 Cade [facility] CBC W/PLT COUNT & AUTO 2019-12-28 04:41:00 LytleChloeu [facility] COMPREHENSIVE METABOLIC 2019-12-28 04:41:00 LytleLily [facility] ABD AO & LOWER EXT 2019-12-28 02:30:00 Sakina Tamayo [facility] ANGIO/ [facility] POCT-GLUCOSE METER 2019-12-27 20:32:00 [facility] MR LOWER EXTREMITY 2019-12-27 16:30:00 LytleChloeu [facility] - WITHOUT IV CONTRAST [facility] POCT-GLUCOSE METER 2019-12-27 14:06:00 Cade [facility] WOUND CULTURE + GRAM 2019-12-27 12:02:00 Annia Delgado CH, I [facility] POCT-GLUCOSE METER 2019-12-27 06:44:00 Cade [facility] POCT-GLUCOSE METER 2019-12-27 05:49:00 Cade [facility] CBC W/PLT COUNT & AUTO 2019-12-27 05:05:00 Lily Echavarria [facility] COMPREHENSIVE METABOLIC 2019-12-27 05:05:00 LytleChloeu [facility] HEMODIALYSIS INPATIENT 2019-12-27 00:31:18 Brandie Khan [facility] POCT-GLUCOSE METER 2019-12-26 20:51:00 Pat Mohamud [facility] TRANSFUSION SERVICE 2019-12-26 18:02:44 Provider [facility] REPORT - SCAN Scanning [facility] POCT-GLUCOSE METER 2019-12-26 16:42:00 Cade [facility] CTA AAA AND RUNOFF 2019-12-26 15:27:00 Sakina Tamayo [facility] POCT-GLUCOSE METER 2019-12-26 11:59:00 Cade [facility] POCT-GLUCOSE METER 2019-12-26 06:09:00 Cade [facility] CBC W/PLT COUNT & AUTO 2019-12-26 04:36:00 Lytle [facility] COMPREHENSIVE METABOLIC 2019-12-26 04:36:00 Lytle [facility] PREPARE LEUKO-REDUCED RBC 2019-12-25 23:54:00 Brandie Khan [facility] POCT-GLUCOSE METER 2019-12-25 20:51:00 [facility] TRANSFUSION SERVICE 2019-12-25 18:04:44 Provider, [facility] REPORT SCAN [facility] POCT-GLUCOSE METER 2019-12-25 17:01:00 Cade [facility] POCT-GLUCOSE METER 2019-12-25 11:25:00 Cade [facility] CBC W/PLT COUNT & AUTO 2019-12-25 05:59:00 [facility] COMPREHENSIVE METABOLIC 2019-12-25 05:59:00 Lytle [facility] POCT-GLUCOSE METER 2019-12-25 05:58:00 Pat Mohamud [facility] TRANSFUSE LEUKO-REDUCED 2019-12-24 19:06:17 Brandie Khan [facility] RED BLOOD CELLS [facility] POCT-GLUCOSE METER 2019-12-24 16:15:00 [facility], MANUAL 2019-12-24 08:25:[address] [facility] POCT-GLUCOSE METER 2019-12-24 06:11:00 [facility] TYPE AND SCREEN, 2019-12-24 06:08:00 Brandie Khan [facility] es - AUTOMATED [facility] CBC W/PLT COUNT & AUTO 2019-12-24 05:51:00 Lily Echavarria [facility] DIFFERENTIAL [facility] COMPREHENSIVE METABOLIC 2019-12-24 05:51:00 LytleLily [facility] POCT-GLUCOSE METER 2019-12-23 21:23:00 [facility] POCT-GLUCOSE METER 2019-12-23 16:42:00 [facility] MR LOWER EXTREMITY JOINT 2019-12-23 15:34:00 Tala Santacruz [facility] ONLY WITHOUT IV CONTRAST [facility] LEFT MR BRAIN WITHOUT IV 2019-12-23 15:34:00 Lily Echavarria [facility] - CONTRAST [facility] POCT-GLUCOSE METER 2019-12-23 11:16:00 [facility] ARTERIAL DOPPLER LEGS 2019-12-23 09:38:00 Tala Santacruz [facility] AMMONIA 2019-12-23 04:05:[address] [facility] CBC W/PLT COUNT & AUTO 2019-12-23 04:00:00 JerichoLily [facility] DIFFERENTIAL [facility] COMPREHENSIVE METABOLIC 2019-12-23 04:00:00 LytleLily [facility] PANEL [facility] SARS-COV2/RT-PCR ([facility] & 2019-12-23 03:59:00 CadePat diaz [facility] POCT-GLUCOSE METER 2019-12-22 20:34:00 Cade [facility] POCT-GLUCOSE METER 2019-12-22 16:43:00 Cade [facility] POCT-GLUCOSE METER 2019-12-22 11:31:00 Cade [facility] POCT-GLUCOSE METER 2019-12-22 06:30:00 Cade [facility] CBC W/PLT COUNT & AUTO 2019-12-22 05:14:00 [facility] COMPREHENSIVE METABOLIC 2019-12-22 05:14:00 Lytle [facility] POCT-GLUCOSE METER 2019-12-21 20:26:00 [facility] POCT-GLUCOSE METER 2019-12-21 17:22:00 Cade [facility] POCT-GLUCOSE METER 2019-12-21 12:35:00 Cade Pat [facility] POCT-GLUCOSE METER 2019-12-21 07:20:00 Cade [facility] POCT-GLUCOSE METER 2019-12-21 05:52:00 [facility] C-REACTIVE PROTEIN 2019-12-21 04:39:00 Annia Delgado [facility] CBC W/PLT COUNT & AUTO 2019-12-21 04:39:00 LytleLily [facility] COMPREHENSIVE METABOLIC 2019-12-21 04:39:00 LytleLily [facility] US ABDOMEN COMPLETE 2019-12-20 21:17:00 Sakina Chen [facility] POCT-GLUCOSE METER 2019-12-20 20:23:00 Evens Mohamudruel [facility] POCT-GLUCOSE METER 2019-12-20 17:31:00 Pat Moham[address] [facility] CT BRAIN WITHOUT IV 2019-12-20 16:04:[address] [facility] CONTRAST [facility] AMMONIA 2019-12-20 14:41:00 Lytle [facility] BLOOD GAS, ARTERIAL 2019-12-20 14:28:00 Lytle [facility] XR FOOT 2 VIEWS RIGHT 2019-12-20 11:55:[address] [facility] POCT-GLUCOSE METER 2019-12-20 11:28:00 [facility] POCT-GLUCOSE METER 2019-12-20 06:20:00 Pat Mohamud [facility] OCCULT BLOOD, STOOL 2019-12-20 06:19:00 April Sakina Carrillo [facility] IRON, TIBC, % SAT. 2019-12-20 05:06:00 AprilSakina [facility] (WITHOUT FERRITIN) [facility] B12 AND FOLATE 2019-12-20 05:06:00 AprilSakina [facility] RETICULOCYTE COUNT 2019-12-20 05:06:00 [facility] Sakina [facility] HAPTOGLOBIN 2019-12-20 05:06:00 [facility] Sakinara Carrillo [facility] TSH/FREE T4 IF INDICATED 2019-12-20 05:06:00 AprilSakinaba [facility] FERRITIN 2019-12-20 05:06:00 April Sakinara Carrillo [facility] ANTI-NUCLEAR ANTIBODY 2019-12-20 05:06:00 Sakina Chen C [facility] (ROGER) [facility] KAPPA / LAMBDA LIGHT 2019-12-20 05:06:00 Sakina Chen [facility] PROTEIN ELECTROPHORESIS, 2019-12-20 05:06:00 Sakina Chenba l [facility] PERIPHERAL BLOOD SMEAR - 2019-12-20 05:06:00 Sakina Chen [facility] - PATHOLOGIST REVIEW Medical Cente r CBC W/PLT COUNT & AUTO 2019-12-20 05:06:00 Marcial Chapa [facility] COMPREHENSIVE METABOLIC 2019-12-20 05:06:00 Marcial Chapa [facility] T4, FREE 2019-12-20 05:06:00 Sakina Chen [facility] ROGER TITER AND PATTERN 2019-12-20 05:06:00 Sakina Chen [facility] PT/APTT 2019-12-20 05:06:00 Sakina Chen [facility] FIBRINOGEN 2019-12-20 05:06:00 April Sakinara Carrillo [facility] D-DIMER 2019-12-20 05:06:00 April Sakinara Carrillo [facility] POCT-GLUCOSE METER 2019-12-19 20:35:00 [facility] POCT-GLUCOSE METER 2019-12-19 16:06:00 [facility] HEMODIALYSIS INPATIENT 2019-12-19 16:02:09 Sharri Fernando [facility] CBC W/PLT COUNT & AUTO 2019-12-19 05:35:00 Marcial Chapa [facility] BASIC METABOLIC PANEL (7) 2019-12-19 05:35:00 Marcial Chapa [facility] LACTATE DEHYDROGENASE 2019-12-19 05:35:00 Sakina Chen [facility] (LDH) [facility] POCT-GLUCOSE METER 2019-12-19 05:24:00 [facility] POCT-GLUCOSE METER 2019-12-18 21:35:00 [facility] POCT-GLUCOSE METER 2019-12-18 16:05:00 [facility]ud [facility] POCT-GLUCOSE METER 2019-12-18 07:45:00 Cade Pat [facility] POCT-GLUCOSE METER 2019-12-18 06:14:00 Cade [facility] POCT-GLUCOSE METER 2019-12-17 21:44:00 [facility] PO[facility]-GLUCOSE METER 2019-12-17 17:52:00 Cade [facility] POCT-GLUCOSE METER 2019-12-17 12:22:00 Cade [facility] HEMODIALYSIS INPATIENT 2019-12-17 10:33:08 Bill [facility] POCT-GLUCOSE METER 2019-12-17 06:18:00 Cade [facility] CBC W/PLT COUNT & AUTO 2019-12-17 04:14:00 Marcial Chapa [facility] COMPREHENSIVE METABOLIC 2019-12-17 04:13:00 Marcial Chapa [facility] POCT-GLUCOSE METER 2019-12-16 20:55:00 Cade [facility] POCT-GLUCOSE METER 2019-12-16 18:24:00 Pat Mohamud [facility] HEPATITIS B SURFACE 2019-12-16 16:02:00 [facility] ANTIBODY [facility] HEPATITIS B SURFACE 2019-12-16 16:02:00 [facility] ANTIGEN [facility] HEPATITIS C ANTIBODY 2019-12-16 16:02:00 [facility] HEPATITIS B CORE 2019-12-16 16:02:00 [facility] es - ANTIBODY, TOTAL [facility] POCT-GLUCOSE METER 2019-12-16 14:47:00 Pat Mohamud [facility] IR TUNNELED CATHETER 2019-12-16 14:26:00 Sharri Fernando [facility] INSERTION [facility] HEMODIALYSIS INPATIENT 2019-12-16 12:37:39 Brandie Khan [facility] POCT-GLUCOSE METER 2019-12-16 11:01:00 Pat Mohamud [facility] XR CHEST 1 VIEW PORTABLE 2019-12-16 05:55:00 Marcial Chapa ra [facility] - / BEDSIDE [facility] POCT-GLUCOSE METER 2019-12-16 05:51:00 Pat Mohamud [facility] CBC W/PLT COUNT & AUTO 2019-12-16 04:08:00 Marcial Chapa [facility] DIFFERENTIAL [facility] BASIC METABOLIC PANEL (7) 2019-12-16 04:08:00 Marcial Chapa [facility] PROTHROMBIN TIME/INR 2019-12-16 04:08:00 Marcial Chapa [facility] SARS-COV2/RT-PCR ([facility] & 2019-12-16 01:45:00 Pat Mohamud [facility] - REF LABS) [facility] Plan of Care Planned Activity Planned Date Details Comments Source Future Scheduled 2020-12-[address] [facility] - Test 00:00:00 [facility] (regime/therapy) [code = 961822860] Future Scheduled 2020-12-[address] [facility] [address] [facility] - Test 00:00:00 [facility] (regime/therapy) [code = 998725819] Future Scheduled 2020-12-[address] [facility] - Test 00:00:00 [facility] (regime/therapy) [code = 669311766] Future Scheduled 2020-12-[address] [facility] - Test 00:00:00 [facility] (regime/therapy) [code = 767069103] Future Scheduled 2020-12-[address] [address] [facility] - Test 00:00:00 [facility] (regime/therapy) [code = 951058118] Future Scheduled 2020-12-[address] [facility] - Test 00:00:00 malignant neoplasm of [facility]ica [facility] Center colon (procedure) [code = 892477624] Future Scheduled 2020-12-[address] [facility] - Test 00:00:00 [facility] (procedure) [code = 626123561] Future Scheduled 2020-12-[address] - Test 00:00:00 malignant neoplasm of Medica l Center colon (procedure) [code = 859840319] Future Scheduled 2020-12-[address] [address] [facility] - Test 00:00:00 [facility] (procedure) [code = 304576210] Future Scheduled 2020-12-[address] [facility] - Test 00:00:00 [facility] (procedure) [code = 986880095] Future Scheduled 2020-11-29 INFLUENZA VACCINE (#1) C [...] [facility] - Test 00:00:00 (1 of 1 [facility] [id number]) [code = PNEUMOCOCCAL 65+ YRS (1 of 1 - [id number] PCV13)] Future Scheduled 2020 PNEUMOCOCCAL 65+ YRS [facility] 00:00:00 (1 of 1 [facility] QGAR53_Ysznhje PCV13) [code = PNEUMOCOCCAL 65+ YRS (1 of 1 - TOSC15_Ttoxqyn PCV13)] Future Scheduled 2020 PNEUMOCOCCAL 65+ YRS [facility] Test 00:00:00 (1 of 1 [facility] NZKC11_Lrxkhya PCV13) [code = PNEUMOCOCCAL 65+ YRS (1 of 1 - RRYS13_Bhaeeqb PCV13)] Future Scheduled 2020 PNEUMOCOCCAL 65+ YRS [facility] Test 00:00:00 (1 of 1 [facility] PECA68_Ftpnuge PCV13) [code = PNEUMOCOCCAL 65+ YRS (1 of 1 - WJEP32_Ugtqmbg PCV13)] Future Scheduled 2020 PNEUMOCOCCAL 65+ YRS [facility] 00:00:00 (1 of 1 [facility] VZPM59_Manhdci PCV13) [code = PNEUMOCOCCAL 65+ YRS (1 of 1 - XLQA84_Vvyrauv PCV13)] Future Scheduled 2017-11-[address] [facility] (procedure) [code = 76206421] Future Scheduled 2017-11-[address] [facility] (procedure) [code = 27145249] Future Scheduled 2017-11-[address] [facility] (procedure) [code = 88606932] Future Scheduled 2017-11-[address] [facility] (procedure) [code = 80051194] Future Scheduled 2017-11-[address] [facility] (procedure) [code = 56989495] Future Scheduled 2005 SHINGLES VACCINES (1 [facility] [...] Test 00:00:00 (procedure) [code = Medical Center 92840691] Future Scheduled [address] [facility] (procedure) [code = [facility] Center 41939887] Future Scheduled [address] [facility] 00:00:00 (procedure) [code = Medical Center 19193455] Future Scheduled [address] [facility] 00:00:00 (procedure) [code = Medical Center 63417469] Future Scheduled [address] [facility] 00:[facility]:00 (procedure) [code = [facility] 68099416] Future Scheduled [address] [facility] cervix (procedure) [code = 590371434] Future Scheduled [address] [facility] cervix (procedure) [code = 851609819] Future Scheduled [address] [facility] cervix (procedure) [code = 850867305] Future Scheduled [address] [facility] 00:[facility]00 [facility] cervix (procedure) [code = 455467651] Future Scheduled [address] [facility] 00:[facility]:00 [facility] cervix (procedure) [code = 899256624] Future Scheduled 1974 DTAP/TDAP/TD VACCINES [facility] I [...] 00:00:00 protein (procedure) [facility] Center [code = 461864307] Future Scheduled [address]IC EYE EXAM [facility] 00:00:00 [code = DIABETIC EYE Medical Center EXAM] Future Scheduled 1965 Urine screening for [facility] 00:00:00 protein (procedure) [facility] Center [code = 933902651] Future Scheduled 1965 DIABETIC EYE EXAM [facility] 00:00:00 [code = DIABETIC EYE Medical Center EXAM] Future Scheduled 1965 Urine screening for [facility] 00:00:00 protein (procedure) [facility] Center [code = 320369449] Future Scheduled 1965 DIABETIC EYE EXAM [facility] 00:00:00 [code = DIABETIC EYE Medical Center EXAM] Future Scheduled 1965 Urine screening for [facility] 00:00:00 protein (procedure) [facility] Center [code = 164102133] Future Scheduled 1965 DIABETIC EYE EXAM [facility] 00:00:00 [code = DIABETIC EYE Medical Center EXAM] Future Scheduled 1965 Urine screening for [facility] 00:00:00 protein (procedure) [facility] [code = 533067197] Future Scheduled [address] [facility] (procedure) [code = 788184912] Future Scheduled [address] [facility] 00[facility] (procedure) [code = 694720664] Future Scheduled [address] [facility] breast (procedure) [code = 499704345] Future Scheduled [address] [facility] 00[facility]00:00 [facility] breast (procedure) [code = 931264365] Future Scheduled [address] [facility] 00:00:00 [facility] breast (procedure) [code = 879657921] Encounters Start End Encounter Admission Attending Care Care Encounter Source Date/Time Date/Time Type Type Clinicians Facility Department ID 2019-12-16 Inpatient UR PAT MOHAMUD [facility] Nephrology [id number] [facility] 00:14:00 2020-03-28 2020-03-29 Emergency Clay Fine [facility] [id number] 15:50:00 20:31:00 Maureen Terrazas [id number] [place] [id number] [place] [id number] 2020-03-28 2020-03-28 Emergency X BABATUNDE [facility] ERT [id number] [facility] 15:50:00 15:50:00 CLAY watson [facility] 2019-12-16 2020-01-01 Hospital UR Pat Mohamud [facility] [id number] 00:14[facility] 10:00:00 [facility] 2019-12-30 2019-12-30 Anesthesia Rhiannon Underwood [facility] [id number] [facility] 13:11:00 14:14:00 Event Jamin Kearns [facility] 2019-12-30 2019-12-30 Surgery Neeta, [facility] [id number] 12:30:00 13:19:00 [facility] 2019-12-28 2019-12-28 Surgery Belkis, [facility] [id number] 12:00:00 12:54:00 Sakina Higgins [facility] 2019-12-17 2019-12-17 Travel [facility] [id number] [facility] 00:[facility]00 [employer] [facility] 2019-12-16 2019-12-16 Orders Monica, [facility] [id number] 00:00:00 00:00:00 Only [facility] 2018-11-17 2018-11-17 [facility] [id number] 11:30:00 11:30:[address] [facility] 2018-10-06 2018-10-06 [facility] [id number] 16:14:00 16:14:[address] [facility] 2018-09-28 2018-09-28 [facility] [id number] 10:30:00 10:30:[address] [facility] 2017-09-22 2017-09-22 Outpatient ANTONY NOYOLA [facility] [id number] [facility] 00:00:00 00:00:00 BIJI Results Test Description Test Time Test Comments Results Result Comments Source ANAEROBIC CULTURE 2020-01-04 10:26:00 Test Item Value Reference Range Interpretation Comme nts CULTURE (BEAKER) (test code = 1095) No anaerobes isolated Tissue [id number] 10:21:00 Test Item Value Reference Range Interpretation Comments Case Report (test code Surgical Pathology = 104) Report Case: [id number] Authorizing Provider: Tala Santacruz DPM Collected: 12/30/2019 01:38 PM Ordering Location: [address] Med/Surg Received: 12/31/2019 06:52 AM Pathologist: Jovita Griffith MD Specimens: A) - Soft Tissue, Other, left 5th proximal phalanx B) - Metatarsal, Left, left 5th metatarsal DIAGNOSIS (test code = [id number] 3220) FuZzEwMzNcZnRuYmpcdWMx QHqovrZnIRjuz1RsK7CmLt AwMFxhbnNpXGRlZmxhbmcx FGUeNHB7anWfZXToDSshAG QnWXmyKh3ezFNigAvnGgSo JANgu0ydsjUFmkdkaYn3l2 seSGPpXaL2hLJtDExpW8bg nnTdoBSxTCKtPEd7nB39IS JvqH0orYEtHQqnezXaLeI1 PNltBXXjMnG7BTXhdQNvUF GbN9fdBREjDKoyXWYuIOhc lVXeQEM6cQhaz6W4vTCljW CdjTepErQcWpDmGDBUw9Wn CVx1aAoeM5WsLJZdLnW2yH QgUGFyYWdyYXBoIEZvbnQ7 bV30TSoedvW7lZVse7Qyc0 2mo049wD0ndXXvDOH6CHXl AAWdzHZnZCLbHZG0LNIlwX WaL3c8SpConHYcE0S5TsZa lTJpX1L9ApPonLVfM3B0Pi IsmXGkAVLbySRpHi3wiCRk sSXaiq9kyz67OBN2y5KjxH cdSWP7HXM9SuVqMl0vtGMy XLSvNN3bDmXnaTIyXBBmkl 58zQsbYJvdpsSoyY6jQtPt GZLfcLGnFIToYE7pnKWcSJ PeoL0qzsvyNDVdKpUiheyi VOWodDkskiGiHh6qdLmlLJ M0YCpaZ3tflL6zAqH7GWcr W0lxiR5mBXw8VNllxHM3ZW UjzP9tLE7hmlsoa4dpCpZf IO2mshtkq8heRvKnGJ7vko q7e1qrSjPxVQ1prxmcm5kj NzIwXGhlYWRlcnkwXGZvb3 TfwrlwWJQch9WmU3HgjXoy S12zgWiaF62oOURtmUacqZ 7msCrzaA5aUcVfTgBmLQns bFxwbGFpblxmMVxmczIwXG bucezdVJBhIWyiN0riMoDn UYJiyLuxLWagp0EyUWAgHO EvFiWcMB4jUo6CHJgaYESK NNPVCFJXMHPWAh5FHM3LXE LPPWNJSK2XWWVAAZ0CB1l4 DQDepjZkOOKaFDVDHO1pG1 aMPPZUKfVXKimIPN7KGPWW UlRJTEFHRSBXSVRIIFNVUl FMCI2DTP9UBBCEKCJXSPVC RCBDSFJPTklDIElORkxBTU 1BVElPTlxwYXJccGFyIEIu IEJPTkUsIExFRlQgRklGVE ggTUVUQVRBUlNBTCwgQklP UFNZOlxwYXIgICAgLSBBQ1 DKLSPTD0CUS56MBWtADRqW IFxwYXIgICAgLSBTRVBBUk QXOZFBEoOZAQRQEABqU9Ly CavPYf6IX30SHUKFYRNRCP XTR5MNJPESMMXHPJLSK8FU O8OsHY2VU0LCM3wEGLNMKA BHUkFOVUxBVElPTiBUSVNT XKNpLr3DLMEIQD7ZIINqch 98QEH5JdNcu9X2QBI4NIHd ONYdm8ddZOEpyYIwMhDlSh NcZnRuYmpcdWMxXGRlZmYw d4vjh690uSQnb5rlUIVzPo J5xVZuDTJdzLBeO467DDVt RBdfy6are6QlKZKngVNje7 B3FNAOerjteRb3eQavT70m b5R0MomoB1shBYSmINAwB0 RuKI5tKNGrWre3DVN1RNY6 HGPrABCdH2NfVF1gEJKqsP DsCCv9z8rmrJejARSvPDD3 q7uuZWaiqlJsSQ8vzx7uqC y5e0ejafDdVWUdPGTwjHHE WGWoJ7LeoErhZh3kiLa8sE odSridBJD0Zzb6TQ3rpo47 zkt8lLzkHXSgruyeWsU0BB kwXTHjcyenAGa5TGwdDKDl qII9PTBvfYKsZ1TyBXAeEC 5zxyo1XNW8QMnvLDSgJdP2 NDBcaGVhZGVyeTcyMFxmb2 04CGX4MkXdCD1qW5Ovv6L2 rR9xrODhVCWhvAEnJzHnLA Ohez1eeQFpBSjrn5ZsLWR1 hrM3fMYwuQGuMASdHaV6NW lnCS3tiu57ZXUeJSY6tv3y bGNccGdicmRyaGVhZFxwZ2 YqVZVnd504MZDjT9BvRNYp z8D9snNnMaYpPCLvoYG7dc C6SJGvSC2quuzrc9khVOsl HQhgUZPiimC5vbX2CNRiuS IwU3SdkO9jYTKpBK8vynej x1chMXK5GGplJTQkIPE6Yg HcCBYgk0Nevtx8DrBau5Hk oSNqMMwiV95hz170SNTbwb SkX8frnOWvkaukxIVnackm SAdbznQ1SJOsGFbgrrwmMV AvCXutD8fdRsScDUPwaIzt FUzsj2OsZXDmNPZmQnKwbZ OcFVKmXhh7BXWzeDXeMBRn ZyOzG2yunwrcJbANFJMzd6 qvZ9kpjKIDuTOyW0SvGXuu bkNbEXdkJEgfXYH5UNV9Ac 33JaB1LVTktj95 CPT Code(s) (test code q6oqaQJiFTKroTPnCpLpGC = 3357) SaSCAld1mlRSGmnDClNgFh MzNcZnRuYmpcdWMxXGRlZm Tri3rxg277sDHuv8odXLJo AnQ9cOMtYSKmfKXaN726n0 umm0ggntGdrIJ5JGSiYPZ4 BAdomgMmpsW2CUebrQKsPc X7FPxiybUrPYdlshRqwkDw Idi4TSLyW188ZVP7ePtxn9 hrRTC3GQQkGLElWmDtYr9u fFJhJ563AAMfCCGDTUXvnM q9SHMwoaWqueMcoEGBb084 N532k7cvRVQpmdHqrPcFer stk2phY030ZULkiLFpsqNb TcHvQFAlgRMlnRZ0WVBmOR 2tmsnkQoTtUV5ehreuYzWg DZ0defe7RjFbEZ1toeacXs OyRUyuBJEbzgzeYQYfj6Ej daeoGK8oS0Nbh5W1cF8xvB GxQVWlpFPpTaSgUTWulr8p tCPvWZusn6MsTWV3psO7aJ PpmGHaDIWpVI79Eocqq0Ip CxhrLZG8YFScklSbc4Mgg5 rrPmPgtzSdH0wcX2RqRYVw EISxILHiDpJqbwKvz1Uqj0 UqjIDucFe8m1uhSQZmFZNk vMymh6gxPLA6AWGcQ3H1sE Cgx1loLZqlLMHktAB4johc VKayLIXsnnQ9lgmaBMknMV XyiWX4tsfkADueZJDkOuD5 ywqvLLukJNVrQSC7BVnnt3 31WMN3NFjdBwpsNOqxGPUc bmNvbnRccGduZGVjXHBsYW luXHBsYWluXGYwXGZzMjRc xWrucIzuwY7cHuOaNzSvUJ tyIC0iGMIrP1zpaEJeIKDh OBWuK6ewXtWucQ2mfTpfWU evkmAiVI8GZ7U1EYSxweN9 DZZjQlB1SqedBDNiEBkwTV EgeDJccGFyfQ== CLINICAL HISTORY (test s6taxQCdNXAtfOTmChJdJO code = 3356) VtGIBxt8xqFISzuAMzZzZu MzNcZnRuYmpcdWMxXGRlZm Hek9tux516jAEzu6ibTPJk ZlC8jOEeGBLjnITfC599z5 qao1grzbPogUX3OBQvEMI0 XBcwvbAbzwM5NKqgzXKbPz O0VGubdlCwTPhgamAofzTd Jie5GNJuA363BIH7hIplm3 quWOQ5BTIhWCFqBhQgUf6f vFCrG885RBCtSHOLBYUrhJ k0NWLpcmVcjyGyuUQFa758 F756x0xdMHHrxiRkxMfZkj dqw0vaI320NMAkvLVwblWm KaXeCGRbcDTbaFY6AYMiYW 0clcvaItHePB0msxsvAlIa XX8corc3FtOtMV1kboglEf WeRNemHPLeanoeCQLvd2La ujhuES0xM7Sxd1K4pJ9wsW WjDZWyrLGxMfBfAAUidl1b dNXaIOllw4CgVMB9stA9eD PlfQZmKFLzQQ24Njdou2Aj GeivHQC0FXVgmuUed1Kdq6 xkBxUgbiZqN1puP9GiCTQc SXXiZYZaLtAkiwOgk6Zle0 ProPGslDa5f7boUDFwEHJe tPdvp9onABR5TUBjQ4V4sD Hhy6oyRUixIWDmxOL2krkj LPzwAAKlgpE0jzdzJRfxVD IgtIB5kjskEZjzJXNwVoG4 odgwCWuzKVQyJUS9LYmhv4 40RNX0IIbpSicqLGntIJYw bmNvbnRccGduZGVjXHBsYW luXHBsYWluXGYwXGZzMjRc rCrlcFmqdK6bLjZmVhSuIM faUP3oQOMdS4yjyEDhFAYt XNGfG1rjMwJsxF0wxCufXN olgxRySI9oyJGhuAunaUp3 eRKzb0XooLLikHL8rUyrgF A2RKLiefDizIshhXzpTHIo v2TyZxtbEMWyqrIkXGGyYV RccGFyfQ== SPECIMEN SOURCE (test k0eivTFbMHFytMNjOsTbDM code = 3377) TeKYBie0slKIBozNOnYsKc MzNcZnRuYmpcdWMxXGRlZm Igt6lap397aIXxn6keEUWn AsN0iFVhTUFsvVEyM783k4 gif7kdnuGxzQV7GENdEUK4 YVkleaZvnqV8XZxwnLViAr T9BPhlwwBsEPkwboUrgyCz Bgm5BXZdE579GUG0eGaoz0 ybQNJ9ECYfOVDfJpOtOh7g zIMeC827LOWeYEEMNLFniO x1VIJsuhQslrLzkJJGo210 E921n1lzNFOyksGcuBjOsv pat0xrR823HCCvoPHsgvOu StEmUECisBYktOT2HUCyYB 7ihpxiBgPbSU5tuyskQkPz XM9tucb9StJhWN7wcyzwZt OfAPhkFTHklbleHLZgo4Kc uxvjBP1tR3Rba1J4pT6ybY NhIBYotMGdUeAoYUNnsv1l rSAxAUyhn7DzOCO9lcC2aY FsoYKmCRVnNP98Ttdds3Dd BgahRDZ8YBKzomMyo7Dan1 qiExVhnyJmH3yzY3DtFYMf ZZQeAWDjWqBjkrJli8Lqs6 KmaZMtvOs7x0qjBBZzKJBm cWuzm7hgGQA3ZVBnL1R7aN Rxt5xcHJiuHTEmeBB8gyik OMakWWVjbnC5zujqJAgmUO WctRF1bmlfOXqlJIZrUfU6 orjwGUvxJJRmLWF6XWrwe9 66SBC6SIuzIrfuRIrwLJIj bmNvbnRccGduZGVjXHBsYW luXHBsYWluXGYwXGZzMjRc cUxeaMomqM9aQeAqJhIdCO srQW2qMOChU5ojcQCgIILo LXZvB7elJpJbqW0zmPtdOU xmczIwIEEuIExlZnQgNXRo DPLww3tfnVUgGVHbMMixtn adJBWeROgzRvStPECrFR9f sTA9UQWsXGniZUFofv0= GROSS DESCRIPTION (test k2evzXYyLMUsbRNvAwYrKT code = 3366) MdGTYhj2bhETStoQAkVyYp MzNcZnRuYmpcdWMxXGRlZm Wxr2wth202zCAde8lrCYJa KnN0xJKxQPNguQVsP145UH ImFWcrc7ncu0RfZCSyeSLh q5T1HIGZiaqnlNp2aUubH5 9mp7W9MksgK4duKZXzMIIh O5SsFN0tAHBwVsi2YXE5ZZ V1HVDtPKJoJ4MuHT6tZUGx wTWoHNn9j7lppKprWDMyWO G3y1udMHqidtVrFH6qgf8w eUh6t1rukhBrSTAjLRAgnQ IAMECyP7BqeNmyDq9alHm2 wKffQdpjVFI6Lmn2IK2jye 26bss3xFlfWZCvawjaZaS5 UFkrYNSzjbatDGd9RNqsRS JnbDcyMFxtYXJncjcyMFxt YXJndDcyMFxtYXJnYjcyMF nfHZFfNAA1OLamv343FKO3 GMqly4ong0eaqZPxQva1ZT AaEnNkGlnpXOanm0Mdi0oz XYAjle2uYYI7xTYdkNdpq3 K8oYGjQSMnjLHjznRlVMOm MdO3XOznEM4zkm83CCZfGH Q8eq4jrOQncGahqpOszQWj MOiwB8VjMMEkw797PFIeS8 HrUROzd7O5luVwPuQqFIBc mWB4oxW7EQWaLDs6tIRgwq Q8qdXmbVHqA6sfuF40CuGe wAMzP7GmbO15MmNsrYHvC2 HklW64YfAreTXwK0YlaN61 CpMvsWXoSQGhxLBuQh1gbI EjtCMrf7ByoFCgWRjrG92v g233QUTmfuAqC3tfcYCqrh wnlUPqrwsjSUtygyN1NGNl XHBsYWluXGYwXGZzMjBcbG FuZzEwMzNcaGljaFxmMFxk WxZvEUXtWDdbF9xzVnCfNs SwRIXMuVKenM7svlRWOFsh ZEIgR7AcuiJmWIjfDZWtcW F1zZLsVPhpQbPwPGWzh1k7 cVA9jVWsdJO7mOBefOqmWW 9kuMZjPY7dAA7nQZmwKZkz ieQmu4IlTU31tATozxDsti QgZGVzaWduYXRlZCBhcyAi c15aqST5pHZaaYNwLS72kS AoYinkM26nw7ztiZEsj8Kg y7oazNLcqSNnhC79QQGsfr OuXwNgG16vsvVwGX2lDHO3 cmluZyAwLjcgeCAwLjMgeC EcVnHaO65iLBZsOWEdhUYv mD5plsFmifIheRCuhCN9IA EtVP40jEFbpHkurG37xrSA ORNwzyFmgM78oeXyOXKniL Fio9h4hUrqzd0zzSEjKEMg qsPEnPZeyI4uabWTGFynPV LsP5DpgoBtIDmqMONbtZD8 hTZmIKpeFdWdNSHoh3p8oA M6hHGdbWJ9xRKphNmhYN8x xDRhEU1gTM9mDMuaGKciam Cbj5GdWC72jUYfupUfwiHj ZGVzaWduYXRlZCBhcyAibW W7FLLeqmEljUBoXVP8Rpvw I87kt7zvcQKwb5LoTr99lo LyOMRpOhXsm05hzJlrv5Dq JRRxYHEyk77zSUQfAVlvUW 80wkTwTCKiyYEzonbqGu7a SJeoXP40VSjrGI68CVLnEV ynHRHmW6PsP6W0AV3obBnl IHNwZWNpbWVuIGlzIGVudG lwBWi6RIjuxNLgkavfHIry czIwXGxhbmcxMDMzXGhpY2 nbXgVkJPPilSkoWRzzz3Ih ZQEjSGPsIqFnUtEsDE0oWT wfdX8yGPUeSPjeq06rzDJd y86qRIDySLbmNGTjXORfOq BcbGFuZzEwMzNcaGljaFxm LDnmMpWxKJGzEPrsG1onAz BcZnMyMCAgTUcvZXdccGFy fQ== MICROSCOPIC DESCRIPTION l2dzzFYdROEfbDPrFsDhPR (test code = 3371) ZtDAJyd3nlFYDcjYShGmHj MzNcZnRuYmpcdWMxXGRlZm Bwf0lxv723dALcb5wpRNRm PsX9mDWhSCQcyOObQ511p9 jrg1cdicVqeHF9QCYjJQU6 PBxtxmIadfG6ZLhrnTQhVf H0JAypdxWyKLwykkFbmlUy Oiw7CTNpE381PDC8iHjtz1 iiRXA4LNQoONGeIcZtIu4h xEWqP068CVNyZAKTAPWxgE q3HMRvkkBvrhXrhSMCc108 W653r9sdZHGuanZsdLbAgr sbs0afX993RKEimPWzjlXg SoVfWUYwwLYxyPT9FLKcQP 1utpbvHnGqZM9msssaWtRk ZB9oize4IxWcHR6vgeklNr WpJHohPBOursptWGVsf5Wh eewqQG3lE7Bkt3C1iE4hsM NhAJOzkKGuUgLkYRNrfa6c dKCbCRrdx1XcEHJ2zcN7eY KxcDRiGENzCP99Pbkje4Qs ZjtmQQY0ZSSqtqBwz8Sjv6 gpUeVmumHiK7tvP0RuSAQf GJPiSXLhMyXkmuJcd5Wis4 EigQSpiOq8z4smBYKuHDHu tGlnl6xdPOR3JGCiA3A8bG Yrb7tpSXkjIAPezPN3zbxn BIzuLKPdcbP8jivbAUbvMZ PirDY3uhyyXRdiHKOyLoB6 dvhuHMkeRTUkFBN9DRmri2 34QTU5QMqyPkvhDFncGGGw bmNvbnRccGduZGVjXHBsYW luXHBsYWluXGYwXGZzMjRc xHdlmDlcuU1uYiLpGnBsBG viOS1qJJKrD4whvDWwIMEr XIEiT9mhNyGjeB7fqRrhVX yaocPvAAMmPa6pNMZqCa2p bWVkLlxwYXJ9 Gross assessment was [facility] performed at (test code [facility], Department = 2777) of Pathology, [address] [place] [address], Technical component was [facility] performed at (test code [facility], = 2778) Department of Pathology, [address] [place] [address], Professional component [facility] was performed at ([facility], Department code = 2779) of Pathology, [address] [place] [address], [facility] [id number] 10:21:00 Test Item Value Reference Range Interpretation Comments Case Report (test code Surgical Pathology = 104) Report Case: [id number] Authorizing Provider: Tala Santacruz DPM Collected: 12/30/2019 01:38 PM Ordering Location: [address] Med/Surg Received: 12/31/2019 06:52 AM Pathologist: Jovita Griffith MD Specimens: A) - Soft Tissue, Other, left 5th proximal phalanx B) - Metatarsal, Left, left 5th metatarsal DIAGNOSIS (test code = [id number]) FuZzEwMzNcZnRuYmpcdWMx SIjzinCuYAqhk9UlA9HoIr AwMFxhbnNpXGRlZmxhbmcx IXViBDP3muIaPGAsOHkoKG NtKWsnKw6skLQjpNcwHuEd GXJif5shhmVAgdgtcKf4i9 ipMJGtHxL7iNPnZLweS8ro pyRutKHxOZIoOWa9cI87DE GopB6jbYVaDOxqzvMxXrH4 XHzgNQRaMpX7LCVohRFzGN LrK9yfOWMeTJusQLAbZCes jAJiNYP6lNppa3Y2qRZnhL LzpGwoKkFpDrXiAWYRb9Fh JPw6jCaxU0RsUNMhUkR2sO QgUGFyYWdyYXBoIEZvbnQ7 tK20XIyguqD3fFTow8Ljg0 9qb422wS3vnNSmWCH7LACy TOKwrLKgECRnGVD7NCAeqG ZfA4b8OmOltWYrP9T5CoLh jPLsC6V3TvWvnEXvQ9N2Lv HtiEYeNRKgoNJjLx4mdMEh uKHkgj1osu91MUB9x4SpqC bqFDD1OZS2RcKkCa5xhEPb APKnXR5fOrSduMGbJHJnfc 37iVupUIryytDbdK7bVwRf SSPipCHtQVHzEK8noKJvYA RzsE7sxlxsSLYtBbNntiik FZTmmHmwiyYsEu9ivQaqNC J3RDvzJ1akmJ0dUzS2NRlk E0tpqE4qBZt1TTigsWK3MC SmvZ5rMT4gymgue4reCoIn ML9tennae1tfRyQkUG0tos j5w8upEfQeMG8iyfenr3qv NzIwXGhlYWRlcnkwXGZvb3 TaennfAKQzn1SjP8FufTpi F68feKyqL29zLKNjbOwnuI 3xxUutiD8pEkZjLaXqSSwi bFxwbGFpblxmMVxmczIwXG ttfvacTUFdYKwhF0jrFkRf ZAHihDyjWTnot0JwICPrYG IpBzQtZK8uNw9DKDwcMJPC RMHMCJAMDJUUUk5BGZ1IGB CJUBRCBN5FHGXDKI8HM0d4 SUIhyrScXTXySHNIXW1zY7 oRGTRMCrGCZjgIYA8KBNVJ UlRJTEFHRSBXSVRIIFNVUl BEWG1YBM9HBXEOENLAKLCA RCBDSFJPTklDIElORkxBTU 1BVElPTlxwYXJccGFyIEIu IEJPTkUsIExFRlQgRklGVE ggTUVUQVRBUlNBTCwgQklP UFNZOlxwYXIgICAgLSBBQ1 ULIYZSK2RPS03ZJIjBWWeI IFxwYXIgICAgLSBTRVBBUk GTITLBRxUAKNJNYZFiO1Yi PlwNOe5LF22BBQZOWGMJHO NUP3OPYAMSKHOIUFNKY3IK Q1HuBS6DZ9GPR1kCHVSVBG BHUkFOVUxBVElPTiBUSVNT YORoRh0VTVETTY3QRAVeth 45BZR2PoEae7R0LZO8ZICt IDNlo0jeLBSxrLGnYeKoPm NcZnRuYmpcdWMxXGRlZmYw c7fqp149qFAzd1ntDNHvBx U2kSAiZNXfsXUlX416QSBr SAhuy1qfj7GyBMXkhCKjt8 V5WMZRcnvwgCv3aExrC15s d9B4LlzlB4uiOXWnWCMbJ7 WwZP4qVODtIli8QLH0NJP1 LTOcCOHcB7LtWK0wFYImuL UoTLr0y4twpSrqNHAeRQG2 y9ugPIkfldCuWF5yxv7psU h8s9vhosYwEDMfDZUruSOZ ZKEtQ1TccOatFe9toOc6aX tfIluiBFL5Snp3PJ5nyf99 ahs5oJosKOUlhwdqSsD3EL pqDEKpgpuzEYs4OKpjLSHf vVA8GNJfqNJrP3IyMZJbCM 5sele3MVM0ZClzKSJqVcM9 NDBcaGVhZGVyeTcyMFxmb2 72BOJ5MoArAH3vE2Ogw2A5 jQ2wfQElACHbbPJkSrSbEA Nwke1mcOLuBCkkw7AgPET7 cfP0vUMfqBHtTUPcVaN6YJ rnXW2plm69IMSoZLM5gb3j bGNccGdicmRyaGVhZFxwZ2 CzPKXlu098DREiX2BpRBSw f6I0hcIwOrPiIUSfiJA0zr N4OLNsIM0zqqbky5cvHQge RQymYPJdlrT2upG3UZHgzI HkB1XvyG2yGZZbUM5dxpbw c5ndTRZ6UMjmLDCjXTD9Ys EuXCXtm9Cadjp6TrNao3Ve sFOiRLdpM56wd135BACllf UbQ4cyaEMnblcwpMWqpovc KWyjzmW6RSZpWVzpbuziWD OuTUpqX7foHgWbIXPlePne FMhel3UeGUSgXHHmOrJwyF UbJBLhLau9OSFccMQxAZXo BxElO8cbffzhUeESEYPxo2 saA0ibzBSYkHZpC4JmTZlx grZbVDfiUCcjGUU5LYS0Oc 80ScO1IRRsjl35 CPT Code(s) (test code q4gyvZHdVQLeqFKlDxRjEX = 3357) KtCZHjq7mqUWOfrHLgBsJy MzNcZnRuYmpcdWMxXGRlZm Sea9dws984nYCmj0epHGSq EoG5aBBxMFPwhMSuR033t7 slw8wgofSzgXB8IITmPKW3 LKguhwBtkdP7AZpvmAFaIt J2NFzjqqPbNCfprjGcojSs Jle5SXYnJ234TEH6lUamn2 pvTKX6MXQgUARyDaJbKd5x kJCuZ288GUZpRJKZIZAauF y3VLSoluYjscCsaUYQy448 W783x3rqLQDgkrIfzNzNdv jbj7rbO955OFRzpVMvbaWx RqVrVNUowZLvqNU8QHDoZJ 5gawwjFaPcYN5brkegHoYh KZ1rfbx7VlNeSE5gsawoHa VjVHfgGZWpzabaBSKzj6Kd pyqbGJ6kC8Ouu9C9nM1cjO VlSSGebZAqFyGtYMWuyp0i tFMeNPbcd7AeMYB6hoK2sS BrjTDzWKXeSH60Vuujd9Xc WavrLWF7RVFhniHvj2Rei6 tjXlFwlfDsR0vrU7VuNCJc BPVdSTBtCpCnhfYur2Hzv3 HuoGSqyOb7h9uySVNlLOYz xBpjv1geRJF9TXWbR5G4lB Uwd9naWSzfPHMtaAD9rjum YPeqPMHedqV4lxgjTChqSN EtiVZ5yassEYktGMEnCwG2 verbYNwqOEApWFD2IMcza8 00DFD5BObaZmktZZmjEAUg bmNvbnRccGduZGVjXHBsYW luXHBsYWluXGYwXGZzMjRc wTonoQkhzQ7sMxElOzMdHP hkJX1rOVViO8iujRDrEJXo XFCxV2haMmRspJ8arBhrUN gtiyJwZM0GE6K5WSFsbkV7 UXHwDrK5AgbwJSLfEFvwFW EgeDJccGFyfQ== CLINICAL HISTORY (test g6ywrJKrNHIogPZvEoOfEA code = 3356) XxMNVzv6dhZIGbnPRfDnTo MzNcZnRuYmpcdWMxXGRlZm Pff0pix787sDSrn4psNQYy AdU6fTZuWGZzgDWmO249k1 jdt0tcbiJnsAA5AGFkPZE0 ZTtxsnLejlO0KZfehYBcFq N6JNllhmDjRLrzytGuqoVs Akz8AGNfL737HNI0gVdps3 faMDI5AOAaUWKbRkGjMr5t dPZbP105SQKqKNMLFONrzP p3VICbvmTiuxXhsDBTq117 K962q2dsQGBxekTeaWaUuy hyg4suT108JAUgvNFcwbHb SwSxBMPmrRHszAA5MFOiYX 3erdxfLlSaNJ7vffouZcGa WI6xrid5FwObJW1aemzbAe QxDKufXXNsuyozRXObz7Ku fgaiFF7pG7Zeb1N9wZ7nvR PyWUXzcBVrJxRoYUXeyu5s gEXxTCdzh2TzPDH2raY0nT WmvOXkLEFjMK34Xstkp4Qq ZslqHKX5XSLgfdFkm8Phv9 seOaKlpyNtS2hhZ9UuJOKe PMIxUXKfNgLggaAag5Mik1 FfuSDlcIh4u8maLTDwYSLw hOyge3xpGKX9VKUjA5E3gZ Ryl0vjGLbnSUCvoLL2vwwt WMirTFOhjxU4pyrgPJynGS YtkZP1fzxfSZtzPMDsLqU8 orxxMEhgTBFcUUH5YVbbn1 43RFR5XQovLzayARwvKEVc bmNvbnRccGduZGVjXHBsYW luXHBsYWluXGYwXGZzMjRc qWxpsIotwH6rMbXkQjYzKR qlTY8dCSArC0aztMJlBJYg KNBnR0bcYrDevG4gvQltZT gxghAtNA1nkSVjoNbapJc1 rJMng0RmeBYsuAB0yUpbjP A6PBMwsnMqeCsjhCwxBTOv n7XiEvvzYYJsfgMwAYCwHI RccGFyfQ== SPECIMEN SOURCE (test w5siaMRtSWBniGOoTfUiYJ code = 3377) MrUFFjf4tpBLGyvMPlVsWq MzNcZnRuYmpcdWMxXGRlZm Qgf9isj682xZZgu3llVYLs YdF7jCPcYPWtiSRqZ182k6 bjn0naqxOqfJN6MWNnHJB1 XGgswgFdamN4LVwfeLHpEx L8UBmltwBgJCrgcsHccqGe Kuo0JGTaF156ZUF6yIuvr7 xwLNA4UMEvJWOkQdFqAa2b rOPoQ463QPFnMJFEFWDocL g0REYlzsVilmFpeAPTy743 E083i1dwWFIyhcTuzRnBwr uqf8cqW839BMMtkUSqbvPc XhEpWLHcuNWtfBF5CQRrXD 8uvudaIgSnZN5oldlnDmIz AT6obpw2YpBvGM4gzolkZu DeTYdgRKQyfuuuPXNsx1Fo sxsmGQ9nB7Lmt8A0oD0ueJ SqZUDzgCCgUiQlULPxbn4n aPZzBOrlv6YkBCE9syY0fX MfuVBqAWLmLQ47Lrqis6Ad XejwPVQ7AMEzloLvp3Mjt8 ufVeVhmpRdC9khJ5FuTVIl CDGmQJRnMoDpksMuh7Xss0 RvcAOcmMq7k3wiMBLyTCVp oRaud9gzORS0WTIdD3W7sY Wjg0pnIQbnWUSvpSZ3oiqu ADvrXBEikgE2kxnbJKqbOK IvwLW8bpwjPJrkBMTjOxO7 wutwZOwsZSQiVYZ1KJxtr6 51YTR3SDkuDwluNTlsVKNr bmNvbnRccGduZGVjXHBsYW luXHBsYWluXGYwXGZzMjRc bTtuzPiipY4mWdYmRlPpHG phEI4oJQXnV0mvfMGaSNQh FYHwV8txXeDldW6egNfvIM xmczIwIEEuIExlZnQgNXRo PKFal4rewSHpPJYpSAoexq bxXEPxCUitVaFyRFYhVD5n uSG9INHvTTrsJXPcaj5= GROSS DESCRIPTION (test b3tttUIbYZNdkKYeOrUzRI code = 3366) XfXHXom9rcTWTxbTEnUqIt MzNcZnRuYmpcdWMxXGRlZm Gzp4atk013rMMcc6tsNUXp EaY4sGDkRCCfpSZeX483FH GeGOcys4gbk9ZyJVAsyAUb d4S8QLXOdmycaRj7nInyD8 7mw6X7AteqX0vpWJTeJDLo C3GsUI6pVXUgOme6OWO8SH Q6MFFqVFRuH1ZbGK4zJVOs xANrPSz0t7hwzVocCZCuPX R6z6ywYZandoOuEI3wnt7d vLa2a1hbsyPwUGEpMWKbiI VNNXTjG6ChbXvzOp9gxRt8 bBnsMjzyTXG6Mmi3BT4ecc 83yhy4eMnqTZJokfwrZaU8 RBgyHZWarswxBLi3USzeNE JnbDcyMFxtYXJncjcyMFxt YXJndDcyMFxtYXJnYjcyMF uyKNUxNWI1SJdkj132JKH5 KNare9bqu3nbjUIcNjw7GY PeHoUnWdncERoek4Msy8jo UBKhis9pWBS5eYRgeGsxo3 N0uDOgNTAeyPOvmqGxMZAn HyE8ULyjAQ5kyi98CYBbFF J4te8uiYMcwGdndfEixSKd GXabE2CmBWNsa552JKVlY4 DkWZIgk3M6isGxDbRfXICy vMK7ciQ4IWWkDHw2yZUwev L1iqSenJFqR0uiiK13SkYm qKElE0TdbZ57HePdlVZsX0 AnaC58RaQczQUuP3JvlO46 XoJdkDDhEKFiqBNoCj8ubO XcbAQkb0WsqHKwJYrxR02k y878FIBxibNvW6qakUWldy nnaNHozbxkYOanlzQ8ILIy XHBsYWluXGYwXGZzMjBcbG FuZzEwMzNcaGljaFxmMFxk KpRtWPOcNOahS9yrVzDsUw EhUZFLzBNpwY8kcgVXNHcu BRCkO4UqurHmOUviOSTuuX W6nWEeULtcUqOxBXPbc9k5 lUW6qCEppMZ4yZJnxQjoZA 5atHGiEP7bKF5pPSmgMPcf nnKuy7NeVK35uKWlzvZprg QgZGVzaWduYXRlZCBhcyAi r40rkTN5bISahPWnGV23sA MlObbnL97it3zngAOmk1Jv f4fxlHNnlSRmeL19PNUeat CmStVnN76vucMqFG5iIGY8 cmluZyAwLjcgeCAwLjMgeC YfQyClY43xXRXrZALyvJRi sL2hgvHsbaPodFVciYI2MJ ZbSB35xWOeyLhnuL06nxWM ANDdomGrcY94gpHbLGSezY Kgt4e6sKyoqt3llIZsAOZc xaYWtIFxnW2kfrLEGEfnZZ ZuM1FsnsRhFEfyVYXctJW9 sHRzVNysQbHjDKVky7c1cV I0yYEejXK1lHBmtDrlHI1s xTWtER6aSV5iTEzaERpzpc Cax8AsNR20vPMinmNgjsUq ZGVzaWduYXRlZCBhcyAibW U0MPMdcxSqaBQgOTY8Fkru M84hb6ahjETji9EbWu51gi GwVZZhXjSzr44lwOveq4Bb ZVMiGWPty95zFMQrNUcbVS 55syDvWLCtyDOsapzqBn1v YVqfDB78QNixEJ29RTJjVG meAGHbV8AoR6D1PJ2gvZoz IHNwZWNpbWVuIGlzIGVudG oaXBj7ZFyipSLnfqboUIkt czIwXGxhbmcxMDMzXGhpY2 hzUkCnGIHmhGkqKWbmi7Lk FFMnBBGnAvJnKtRbFX3hEG kvrK6iISFlPDtbh51luHSa m47vOUXjMSfhKZOpOHSuEl BcbGFuZzEwMzNcaGljaFxm ZDxlWhWjPSNdSNcgD7muLg BcZnMyMCAgTUcvZXdccGFy fQ== MICROSCOPIC DESCRIPTION f4hdyMOmUOXjbJMnOzTrXE (test code = 3371) HiLUSpq3unAADvvCQjVfQs MzNcZnRuYmpcdWMxXGRlZm Kof8tht179tGJoh4uyCEDj TpY0rVYlIDVrvEJbI391b6 dpy0iawcMngPJ4DHReJKR4 YEzndmIvwcO9ZEcivSBvVv U1OQyazyUoWYzdpgZldaNd Maj7PJMsM328TAE7iSntj6 meRWP8QTUwFXPyKsYoRi5d fPIdX532LUIgUDKYQUVhyI k8GTEbisEvynEziZRCm758 U443b1zbFATaqfItpRaCqw qlz4svJ272DBAqvPGzywFm FpJgYBYcaHHvkUL1KSPiKO 6buvukBwLfIQ1hqoeyHhWi BM9ysou7IdGtWO9rrcchGr GuRItpSHIdopflMQAdw2Wn jmhdKZ1yS3Bmx7I3yU0vgM SvSUYxfXHuQlElKTXkmg5p tPBhZNqst6RlUIA0wkZ1yA WsrTHjMEEfZM75Doxwx3Qn DmxaNCR5AOXmtbRju2Etk5 mkThOzfnEjS0mgM3QvOUAs TTTbPJPdBsPcdvFst1Kff0 MocBUluIc5y1keRFRvRXCy tOnmy1aiAQH3SUUjG0L5hG Zbt2ajYUqdMKGkaDQ0csgw TRvsAMZasiS1thngDRjcWV UlwWL5tqtrUUobHODzErQ7 evsbGUdiHWJgKEI5WSevo6 02OJY8PLotGjmxGDrsYEYw bmNvbnRccGduZGVjXHBsYW luXHBsYWluXGYwXGZzMjRc tKtjlPmluI0ePxDtMmFkLE vaRU4bIYWyD1ahbLPwMFPv GCOxW5gnHpYlmF1moStqEO jongHhPGKyCu2fPVFwBv4q bWVkLlxwYXJ9 Gross assessment was [facility] performed at ([facility], Department = 2777) of Pathology, [address] [place] [address], Technical component was [facility] performed at ([facility], = [facility]) Department of Pathology, [address] [place] [address], [address] [facility] was performed at ([facility], Department code = 2779) of Pathology, [address] [place] [address], [facility] [id number] 10:21:00Surgical Pathology Report Case: [id number] Authorizing Provider: Tala Santacruz DPM Collected: 12/30/2019 01:38 PM Ordering Location: [address] Med/Surg Received: 12/31/2019 06:52 AM Pathologist: [...] TISSUE FORMATION Signing Pathologist Direct Phone Line: [phone] signed by Jovita Griffith MD on 01/04/2020 at 10:21 AMMG/[id number] [id number] o5Ltwnwlttszknl of left 5th metatarsal, ulcer of bilateral [...] entirely B1 and into decal solution. MG/Veronica-B. Performed.[facility], Department of Pathology, [address] [place] [address], [facility], Department of Pathology, [address] [place] [address], [facility], [facility] of [facility]ology, [address] [place] [address], NUWWUIJVX [id number] 10:47:00 Test Item Value Reference Interpretation Comments [...] negative Staphylococcus SURGICALLY OBTAINED CULTURE + GRAM [id number] 08:31:00 Test Item Value Reference Range Interpretation Comments CULTURE (BEAKER) (test code No growth = 1095) GRAM STAIN RESULT (BEAKER) <1+ WBCs (test code = 1123) GRAM STAIN RESULT (BEAKER) No organisms seen (test code = 19736) SURGICALLY OBTAINED CULTURE + GRAM [id number] 08:19:00 Test Item Value Reference Interpretation Comments Range CULTURE (BEAKER) STENOTROPHOMONAS A 2+ Sten otrophomonas (test code = 1095) MALTOPHILIA maltophil ia Levofloxacin (test S code = 22) Trimethoprim + S Sulfamethoxazole (test code = 47) GRAM STAIN RESULT <1+ WBCs (BEAKER) (test code = 1123) GRAM STAIN RESULT No organisms seen (BEAKER) (test code = 854761) POC-Glucose [id number] 06:47:00 Test Item Value Reference Range Interpretation Comments POC-Glucose Meter (test 102 mg/dL 70-110 : TE STED AT [facility] code = 1538) [address] [place] [address]: [employer] Pcb Designer/Techni artemio ID = [id number] for Brown, Anne Lab Interpretation (test Normal code = 18872-2) [facility] [id number] 06:47:00 Test Item Value Reference Range Interpretation Comments POC-Glucose Meter (test 102 mg/dL 70-110 : TE STED AT [facility] code = 1538) [facility] [place] [address]: [employer] Pcb Designer/Techni artemio ID = [id number] for Brown, Anne Lab Interpretation (test Normal code = 96388-5) [facility]-GLUCOSE [id number] 06:47:00 Test Item Value Reference Range Interpretation Comments POC-GLUCOSE METER 102 mg/dL 70-110 : TESTED A T [facility] 1317 (BEAKER) (test code [address], = 1538) [facility] [place] [address]: [employer] Pcb Designer/Techni artemio ID = [id number] for Anne Busby Comprehensive metabolic [id number] 06:34:00 Test Item Value Reference Range Interpretation Comments Protein, Total (test 6.1 See_Comment [Autom ated code = 2885-2) message] The system which generated this result transmit merna reference range : 6.0 - 8.5 gm/dL . The reference range was not u sed to interpret th is result as normal/abnormal . Albumin (test code = 2.3 g/dL 3.5-5 L 60283-4) Alkaline Phosphatase 81 U/L 30-115 (test code = 6768-6) Total Bilirubin (test 0.4 mg/dL 0.1-1.2 code = 1975-2) Sodium (test code = 137 meq/L 110-168 9308-2) Potassium (test code 3.7 meq/L 3.6-5.5 = 2823-3) Chloride (test code = 100 meq/L 98-106 2075-0) CO2 (test code = 28 meq/L 20-29 2028-9) BUN (test code = 14 mg/dL 10-26 3094-0) Creatinine (test code 2.31 mg/dL 0.5-1.2 H = 2160-0) Glucose (test code = 100 mg/dL 70-110 2345-7) Calcium (test code = 7.5 mg/dL 8.5-10.5 L 68435-5) AST (test code = 15 U/L 5-40 1920-8) ALT (test code = 6 U/L 5-50 1742-6) EGFR (test code = 21 mL/min/1.73 [place] [address]-7) NOT ACCURATE CREATININE CLEARANCE IN PREDICTING GLOMERULAR FILTRATION RATE . ESTIMATED GFR I S NOT APPLICABLE FOR DIALYSIS PATIEN TSAlfred ZIA (test code = ZIA) [employer] Pcb Designer ID - ADMIN Lab Interpretation Abnormal (test code = 55445-4) [facility] [id number] 06:34:00 Test Item Value Reference Range Interpretation Comments Protein, Total (test 6.1 See_Comment [Autom ated code = 2885-2) message] The system which generated this result transmit merna reference range : 6.0 - 8.5 gm/dL . The reference range was not u sed to interpret th is result as normal/abnormal . Albumin (test code = 2.3 g/dL 3.5-5 L 97536-9) Alkaline Phosphatase 81 U/L 30-115 (test code = 6768-6) Total Bilirubin (test 0.4 mg/dL 0.1-1.2 code = 1975-2) Sodium (test code = 137 meq/L 281-737 1919-2) Potassium (test code 3.7 meq/L 3.6-5.5 = 2823-3) Chloride (test code = 100 meq/L 98-106 2075-0) CO2 (test code = 28 meq/L 20-29 2028-9) BUN (test code = 14 mg/dL 10-26 3094-0) Creatinine (test code 2.31 mg/dL 0.5-1.2 H = 2160-0) Glucose (test code = 100 mg/dL 70-110 2345-7) Calcium (test code = 7.5 mg/dL 8.5-10.5 L 68047-3) AST (test code = 15 U/L 5-40 1920-8) ALT (test code = 6 U/L 5-50 1742-6) EGFR (test code = 21 mL/min/1.[place] [address]-2) NOT ACCURATE CREATININE CLEARANCE IN PREDICTING GLOMERULAR FILTRATION RATE . ESTIMATED GFR I S NOT APPLICABLE FOR DIALYSIS PATIEN ZIA (test code = ZIA) [employer] Pcb Designer ID - ADMIN Lab Interpretation Abnormal (test code = 86338-8) [facility] [id number] 06:34:00 Test Item Value Reference Range Interpretation [...] S NOT APPLICABLE FOR DIALYSIS PATIEN TS. [employer] Pcb Designer ID - ADMINCBC with platelet count + automated [id number] 06:06:00 Test Item Value Reference Range Interpretation Comments WBC (test code = 6690-2) 5.7 See_Comment [A utomated message] The system [employer] generated this result transmitted ref erence range: 4.0 - 10 .0 K/L. The refe rence range was not u sed to interpret this result as normal/abnor mal. RBC (test code = 789-8) 2.41 See_Comment L [Au tomated message] The system [employer] generated this result transmitted ref erence range: 4.00 - 5 .00 M/L. The refe rence range was not u sed to interpret this result as normal/abnor mal. MCHC (test code = 786-4) 30.8 See_Comment L [A utomated message] The system [employer] generated this result transmitted ref erence range: [...] L [Aut omated message] 777-3) The system [employer] generated this result transmitted ref erence range: 150 - 43 0 K/CU MM. The referen ce range was not u sed to interpret this result as normal/abnor mal. MPV (test code = 10.5 fL 6-11.5 82364-4) nRBC (test code = 413) 0 See_Comment [Aut omated message] The system [employer] generated this result transmitted ref erence range: [...] See_Comment [Aut omated message] 670) The system [employer] generated this result transmitted ref erence range: 1.80 - 8 .00 K/L. The refe rence range was not u sed to interpret this result as normal/abnor mal. # Lymphs (test code = 1.66 See_Comment [Auto mated message] 414) The system [employer] generated this result transmitted ref erence range: 1.48 - 4 .50 K/L. The refe rence range was not u sed to interpret this result as normal/abnor mal. # Monos (test code = 0.28 See_Comment [Autom ated message] 415) The system [employer] generated this result transmitted ref erence range: 0.00 - 1 .30 K/L. The refe rence range was not u sed to interpret this result as normal/abnor mal. # Eos (test code = 416) 0.12 See_Comment [Au tomated message] The system [employer] generated this result transmitted ref erence range: 0.00 - 0 .50 K/L. The refe rence range was not u sed to interpret this result as normal/abnor mal. # Baso (test code = 417) 0.07 See_Comment [A utomated message] The system [employer] generated this result transmitted ref erence range: 0.00 - 0 .20 K/L. The refe rence range was not u sed to interpret this result as normal/abnor mal. Immature 0 % 0-0 Granulocytes-Relative (test code = 2801) Lab Interpretation (test Abnormal code = 71417-8) [facility] with platelet count + automated [id number] 06:06:00 Test Item Value Reference Range Interpretation Comments WBC (test code = 6690-2) 5.7 See_Comment [A utomated message] The system [employer] generated this result transmitted ref erence range: 4.0 - 10 .0 K/L. The refe rence range was not u sed to interpret this result as normal/abnor mal. RBC (test code = 789-8) 2.41 See_Comment L [Au tomated message] The system [employer] generated this result transmitted ref erence range: 4.00 - 5 .00 M/L. The refe rence range was not u sed to interpret this result as normal/abnor mal. MCHC (test code = 786-4) 30.8 See_Comment L [A utomated message] The system [employer] generated this result transmitted ref erence range: [...] L [Aut omated message] 777-3) The system [employer] generated this result transmitted ref erence range: 150 - 43 0 K/CU MM. The referen ce range was not u sed to interpret this result as normal/abnor mal. MPV (test code = 10.5 fL 6-11.5 72474-7) nRBC (test code = 413) 0 See_Comment [Aut omated message] The system [employer] generated this result transmitted ref erence range: [...] See_Comment [Aut omated message] 670) The system [employer] generated this result transmitted ref erence range: 1.80 - 8 .00 K/L. The refe rence range was not u sed to interpret this result as normal/abnor mal. # Lymphs (test code = 1.66 See_Comment [Auto mated message] 414) The system [employer] generated this result transmitted ref erence range: 1.48 - 4 .50 K/L. The refe rence range was not u sed to interpret this result as normal/abnor mal. # Monos (test code = 0.28 See_Comment [Autom ated message] 415) The system [employer] generated this result transmitted ref erence range: 0.00 - 1 .30 K/L. The refe rence range was not u sed to interpret this result as normal/abnor mal. # Eos (test code = 416) 0.12 See_Comment [Au tomated message] The system [employer] generated this result transmitted ref erence range: 0.00 - 0 .50 K/L. The refe rence range was not u sed to interpret this result as normal/abnor mal. # Baso (test code = 417) 0.07 See_Comment [A utomated message] The system [employer] generated this result transmitted ref erence range: 0.00 - 0 .20 K/L. The refe rence range was not u sed to interpret this result as normal/abnor mal. Immature 0 % 0-0 Granulocytes-Relative (test code = 2801) Lab Interpretation (test Abnormal code = 66832-5) [facility] W/PLT COUNT & AUTO [id number] 06:06:00 Test Item Value Reference Range Interpretation [...] PERCENT (BEAKER) (test code = 2801) POCT-GLUCOSE [id number] 21:02:00 Test Item Value Reference Range Interpretation Comments POC-GLUCOSE METER 167 mg/dL 70-110 H : TESTED A T [facility] 1317 (BEAKER) (test code [facility], = 1538) [place] [address]: [employer] Pcb Designer/Techni artemio ID = [id number] for Anne Busby POCT-GLUCOSE [id number] 18:12:00 Test Item Value Reference Range Interpretation Comments POC-GLUCOSE METER 121 mg/dL 70-110 H : TESTED A T [facility] 1317 (BEAKER) (test [facility] = 1538) [place] [address]: [employer] Pcb Designer/Techni artemio ID = [id number] for Cortney Cohen POCT-GLUCOSE [id number] 11:54:00 Test Item Value Reference Range Interpretation Comments POC-GLUCOSE METER 117 mg/dL 70-110 H : TESTED A T [facility] 1317 (BEAKER) (test code [facility], = 1538) [place] [address]: [employer] Pcb Designer/Techni artemio ID = [id number] for Aydin Coheninor COMPREHENSIVE METABOLIC [id number] 06:47:00 Test Item Value Reference Range Interpretation [...] S NOT APPLICABLE FOR DIALYSIS PATIEN TS. [employer] Pcb Designer ID - [id number] 06:42:00 Test Item Value Reference Range Interpretation Comments Magnesium (test code = 1.6 mg/dL 1.5-3 83613-5) ZIA (test code = ZIA) [employer] Pcb Designer ID - ADMIN Lab Interpretation (test Normal code = 01264-3) [facility]esium2020-[facility]-02 06:42:00 Test Item Value Reference Range Interpretation Comments Magnesium (test code = 1.6 mg/dL 1.5-3 92160-3) ZIA (test code = ZIA) [employer] Pcb Designer ID - ADMIN Lab Interpretation (test Normal code = 09860-4) [facility] [id number] 06:42:00 Test Item Value Reference Range Interpretation Comments POC-GLUCOSE METER 101 mg/dL 70-110 : TESTED A T [facility] [address] (BEAKER) (test code [address], = 1538) [facility] [place] [address]: [employer] Pcb Designer/Techni artemio ID = [id number] for Ashley austin Anne [id number] 06:42:00 Test Item Value Reference Range Interpretation Comments MAGNESIUM (BEAKER) (test code = 1.6 mg/dL 1.5-3.0 627) [employer] Pcb Designer ID - ADMINCBC W/PLT COUNT & AUTO [id number] 06:37:00 Test Item Value Reference Range Interpretation [...] PERCENT (BEAKER) (test code = 2801) POCT-GLUCOSE [id number] 20:24:00 Test Item Value Reference Range Interpretation Comments POC-GLUCOSE METER 155 mg/dL 70-110 H : TESTED A T [facility] 1317 (BEAKER) (test code [facility], = 1538) [facility] [address]: [employer] Pcb Designer/Techni artemio ID = [id number] for Anne Busby POCT-GLUCOSE [id number] 16:39:00 Test Item Value Reference Range Interpretation Comments POC-GLUCOSE METER 164 mg/dL 70-110 H : Notified RN/MD: TESTED (BEAKER) ([facility] [address] [address] = 1538) [facility], [facility] [address]: [employer] Pcb Designer/Techni artemio ID = [id number] for Alondra Kelley SARS-CoV2/RT-PCR (Asymptomatic ONLY)2019-12-30 15:57:00 Test Item Value Reference Range Interpretation Comments SARS-COV2/RT-PCR Negative Not Detected, (test code = Negative, See 66432-2) external report for linked test SARS-COV-2 [facility] PERFORMING LAB (test code = 50172-4) ZIA (test code = Negative result for [...] of the Act. Fact Sheet for Healthcare Providers:https://www.[employer]/sites/default/f loco/product/documents/F act_Sheet_HC_Providers_L fkg_PYGJ-TlF-6.pdf Fact Sheet for Healthcare Patients:https://www.[employer]/sites/default/fi les/product/documents/Fa ct_Sheet_Patients_Lyra_S ARS-CoV-2.pdf Performing Laboratory:[facility] [place] [address] [facility] (Asymptomatic ONLY)2019-12-30 15:57:00 Test Item Value Reference Range Interpretation Comments SARS-COV2/RT-PCR Negative Not Detected, (test code = Negative, See 40313-5) external report for linked test SARS-COV-2 [facility] PERFORMING LAB (test code = 97927-7) ZIA (test code = Negative result for [...] of the Act. Fact Sheet for Healthcare Providers:https://www.[employer]/sites/default/f loco/product/documents/F act_Sheet_HC_Providers_L emr_OZGO-TrY-0.pdf Fact Sheet for Healthcare Patients:https://www.[employer]/sites/default/fi les/product/documents/Fa ct_Sheet_Patients_Lyra_S ARS-CoV-2.pdf Performing Laboratory:[facility], [place] [address] [place], [place] [address]ARS-COV2/RT-PCR ([facility])2019-12-30 15:57:00 Test Item Value Reference Range Interpretation Comments SARS-COV2/RT-PCR (test Negative Not Detected, Negative, code = 2636057) See external report for linked test SARS-COV-2 PERFORMING LAB [facility] (test code = 1119455) Negative result for this test determines that [...] 564(g) of the Act.Fact Sheet for Healthcare Providers:https://www.[employer]/sites/default/files/product/documents/Fact_Shee y_FJ_Mjbacklvw_Xrho_UVNL-FxW-7.pdfFact Sheet for Healthcare Patients:https://www.[employer]/sites/default/files/product/ documents/Wkan_Omxgl_Rrwofxhp_Yoar_JTBB-MuW-0.pdfPerforming Laboratory:[facility] [place], [place] [address]alexys keyNicholls, [place] [address]ZDTT-DWYAFTN METER 2019-12-30 11:50:00 Test Item Value Reference Range Interpretation Comments POC-GLUCOSE METER 82 mg/dL 70-110 : Notified RN/MD: TESTED (ROBERT) (test code = AT [facility] 1317 [facility] 1538) [facility] [address]: [employer] Pcb Designer/Techni artemio ID = [id number] for Alondra Kelley WOUND CULTURE + GRAM [id number] 10:45:00 Test Item Value Reference Interpretation Comments Range CULTURE ([employer]) STENOTROPHOMONAS A 1+ Sten otrophomonas (test code = 1095) MALTOPHILIA maltophil ia Levofloxacin (test S code = 22) Trimethoprim + S Sulfamethoxazole (test code = 47) CULTURE (BEAKER) A 1+ Kary (test code = 1095) parapsilo sis GRAM STAIN RESULT <1+ WBCs (BEAKER) (test code = 1123) GRAM STAIN RESULT <1+ gram negative (BEAKER) (test code rods = 612973) POCT-GLUCOSE [id number] 05:50:00 Test Item Value Reference Range Interpretation Comments POC-GLUCOSE METER 103 mg/dL 70-110 : Notified RN/MD: TESTED (BEAKER) (test code AT [facility] [address] = 1538) [facility] [address]: [employer] Pcb Designer/Techni artemio ID = [id number] for Zonia Healy COMPREHENSIVE METABOLIC [id number] 05:44:00 Test Item Value Reference Range Interpretation [...] S NOT APPLICABLE FOR DIALYSIS PATIEN TS. [employer] Pcb Designer ID - ADMINCBC W/PLT COUNT & AUTO [id number] 05:29:00 Test Item Value Reference Range Interpretation [...] PERCENT (BEAKER) (test code = 2801) POCT-GLUCOSE [id number] 21:21:00 Test Item Value Reference Range Interpretation Comments POC-GLUCOSE METER 185 mg/dL 70-110 H : Notified RN/MD: TESTED (BEAKER) (test code AT [facility] [address] POINT = 1538) [place] [address]: [employer] Board Pcb Designer/Techni artemio ID = [id number] for Zonia Healy POCT-GLUCOSE [id number] 11:21:00 Test Item Value Reference Range Interpretation Comments POC-GLUCOSE METER 143 mg/dL 70-110 H : Notified RN/MD: TESTED (BEAKER) (test code AT [facility] 131[facility] POINT = 1538) [place] [address]: [employer] Board Pcb Designer/Techni artemio ID = [id number] for Alondra Kelley COMPREHENSIVE METABOLIC [id number] 06:27:00 Test Item Value Reference Range Interpretation [...] GFR I S NOT APPLICABLE FOR DIALYSIS PATIKYLEE TS. [employer] Pcb Designer ID - ADMINPOCT-GLUCOSE [id number] 06:21:00 Test Item Value Reference Range Interpretation Comments POC-GLUCOSE METER 73 mg/dL 70-110 : Notified RN/MD: TESTED (BEAKER) (test code = AT [facility] [address]38) [facility] [address]: [employer] Pcb Designer/Techni artemio ID = [id number] for Zonia Healy CBC W/PLT COUNT & AUTO [id number] 06:00:00 Test Item Value Reference Range Interpretation [...] PERCENT (BEAKER) (test code = 2801) POCT-GLUCOSE [id number] 20:48:00 Test Item Value Reference Range Interpretation Comments POC-GLUCOSE METER 84 mg/dL 70-110 : Notified RN/MD: TESTED (BEAKER) (test code = AT [facility] [address] [place] [address]) [place] [address]: [employer]ed Circuit Board Pcb Designer/Techni artemio ID = [id number] for Zonia Healy POCT-GLUCOSE [id number] 17:51:00 Test Item Value Reference Range Interpretation Comments POC-GLUCOSE METER 59 mg/dL 70-110 L : TESTED A T [facility] 1317 ([facility]) (test code = [address] [facility], 153) [facility] [address]: [employer] Board Pcb Designer/Techni artemio ID = [id number] for Berta Servin POCT-GLUCOSE [id number] 13:28:00 Test Item Value Reference Range Interpretation Comments POC-GLUCOSE METER 67 mg/dL 70-110 L : TESTED A T [facility] [address]17 (BEAKER) (test code = [address], 1538) [facility] [address]: [employer]ed [employer] Board Pcb Designer/Techni artemio ID = [id number] for Berta Servin POCT-GLUCOSE [id number] 06:04:00 Test Item Value Reference Range Interpretation Comments POC-GLUCOSE METER 94 mg/dL 70-110 : TESTED A T [facility] [address]17 (BEAKER) (test code = [address], 1538) [place] [address]: [employer] Board Pcb Designer/Techni artemio ID = [id number] for Anahi Sherman COMPREHENSIVE METABOLIC [id number] 05:35:00 Test Item Value Reference Range Interpretation [...] S NOT APPLICABLE FOR DIALYSIS PATIEN TS. [employer] Pcb Designer ID - ADMINCBC W/PLT COUNT & AUTO [id number] 04:56:00 Test Item Value Reference Range Interpretation [...] PERCENT (BEAKER) (test code = 2801) POCT-GLUCOSE [id number] 20:43:00 Test Item Value Reference Range Interpretation Comments POC-GLUCOSE METER 137 mg/dL 70-110 H : TESTED A T [facility] [address]17 (BEAKER) (test code [address], = 1538) [facility] [address]: Printed Circuit Board Pcb Designer/Techni artemio ID = [id number] for Anahi Sherman MR, EXTREMITY, LOWER, WITHOUT CONTRAST, [id number] 16:55:00MRI LEFT FOOT.Unlisted Reason for Exam - [...] MDReport Verified Date/Time: 12/27/2019 16:55:07 Reading Location: [facility] Radiology Reading Room MR lower extremity without IV contrast left [id number] 16:55:00Interface, External Ris In - 12/27/2019 4:57 [...] Ring Verified Date/Time: 12/27/2019 16:55:07 Reading Location: [facility] Radiology Reading Room Electronically signed by: Adrienne CHU 12/27/2019 04:55 [facility] without IV contrast left [id number] 16:55:00Interface, External Ris In - 12/27/2019 4:57 [...] osteomyelitis in the first metatarsal remnant. Signed: Wells, Lynda MDReport Verified Date/Time: 12/27/2019 16:55:07 Reading Location: [facility] Radiology Reading Room Electronically signed by: Adrienne CHU 12/27/2019 04:55 [facility] [id number] 14:19:00 Test Item Value Reference Range Interpretation Comments POC-GLUCOSE METER 232 mg/dL 70-110 H : TESTED A T [facility] 1317 (BEAKER) (test code [address], = 1538) [facility] [place] [address]: [employer]ed Circuit Board Pcb Designer/Techni artemio ID = [id number] for Christina r, Berta CT, CTA AAA, W/ GÓMEZ.EXT.[id number] 11:38:00Bilateral lower extremities Addendum BeginsREPORT STATUS:A I agree with the nonvascular findings with exceptions and emphasis as below:*Moderate right and small left pleural effusions are partially visualized.*Large volume ascites.*Diffuse anasarca*The reflux of contrast into the hepatic veins is concerning for volume overload. Signed: Molly Linares MDReport Verified Date/Time: 12/27/2019 11:38:28 Reading Location: [facility] Diagnostic Imaging Reading Room - [place] [place] [address] angiography of the abdominal aorta and runoff, 26-Dec-19 INDICATION: This is a 64 year old female with with lower leg penetrating trauma presents for assessment. TECHNIQUE: Spiral acquisition before and during intravenous contrast administration using a Bumble Beez multidetector CT scanner. Images were obtained before [...] identified. However, significant calcification identified of the [place] left SFA, for example at image 516, [...] the right popliteal artery is patent, with vnnf-gc-qqciswws diffuse calcification identified with no obstructive lesion [...] However, in the distal left SFA, the [place] artery substantial calcification identified and the stent [...] atherosclerosis identified. 4. In the right, the [place] right SFA is not filled by contrast [...] dictated regarding the non-vascular findings by the Hook Tender Radiologist. Signed: Shlomo Dockery MDRepmissouri baptist medical center Verified Date/Time: 12/27/2019 07:59:51 Reading Location: [place] [address] CT Reading Room Protein electrophoresis, serum 2019-12-27 [...] as normal/abnormal . ZIA (test code = Printed Circuit Board Pcb Designer ID - ZIA) [facility] Lab Interpretation Abnormal (test code = 21820-9) [facility] HospitalProtein electrophoresis, [id number] 09:29:00 Test Item Value Reference Range Interpretation [...] as normal/abnormal . ZIA (test code = Printed Circuit Board Pcb Designer ID - ZIA) LEONIE F Lab Interpretation Abnormal (test code = 42919-8) [facility] HospitalPROTEIN ELECTROPHORESIS, [id number] 09:29:00 Test Item Value Reference Range Interpretation [...] chronic inflammatory response. No monoclonal bands detected. [id number] Rocio Galindo MD (BEAKER) (test code = (electronic signature) 2616) PROTEIN TOTAL SERUM, 6.3 gm/dL 6.0-8.3 SPEP (BEAKER) (test code = 2660) Printed Circuit Board Pcb Designer ID - [place] FCTA AAA and [id number] 07:59:00Interface, External Ris In - 12/27/2019 11:40 AM CDTAddendum BeginsREPORT STATUS:A I agree with the nonvascular findings with exceptions and emphasis as below:*Moderate right andsmall left pleural effusions are partially visualized.*Large volume ascites.*Diffuse anasarca*The reflux of contrast into the hepatic veins is concerning for volume overload. Signed: Molly Linares MDReport Verified Date/Time: 12/27/2019 11:38:28 Reading Location: [facility] Diagnostic Imaging Reading Room - [place] [address] angiography of the abdominal aorta and runoff, 26-Dec-19 INDICATION: This is a 64 year old female with with lower leg penetrating trauma presents for assessment. TECHNIQUE: Spiral acquisition before and during intravenous contrast administration using a Bumble Beez multidetector CT scanner. Images were obtained before [...] identified. However, significant calcification identified of the [place] left SFA, for example at image 516, [...] the right popliteal artery is patent, with dolc-gw-voeqwkkn diffuse calcification identified with no obstructive lesion [...] However, in the distal left SFA, the [place] artery substantial calcification identified and the stent [...] atherosclerosis identified. 4. In the right, the [place] right SFA is not filled by contrast [...] dictated regarding the non-vascular findings by the Hook Tender Radiologist. Signed: Shlomo Dockery MDReport Verified Date/Time: 12/27/2019 07:59:51 Reading Location: [place] [address] CT Reading Room [facility] AngelesCT[facility] AAA and [id number] 07:59:00Interface, External Ris In - 12/27/2019 11:40 AM CDTAddendum BeginsREPORT STATUS:A I agree with the nonvascular findings with exceptions and emphasis as below:*Moderate right andsmall left pleural effusions are partially visualized.*Large volume ascites.*Diffuse anasarca*The reflux of contrast into the hepatic veins is concerning for volume overload. Signed: Molly Linares MDReport Verified Date/Time: 12/27/2019 11:38:28 Reading Location: [facility] Diagnostic Imaging Reading Room - [place] [address] [address] angiography of the abdominal aorta and runoff, 26-Dec-19 INDICATION: This is a 64 year old female with with lower leg penetrating trauma presents for assessment. TECHNIQUE: Spiral acquisition before and during intravenous contrast administration using a Bumble Beez multidetector CT scanner. Images were obtained before [...] identified. However, significant calcification identified of the [place] left SFA, for example at image 516, [...] the right popliteal artery is patent, with hxge-pd-pubelstg diffuse calcification identified with no obstructive lesion [...] However, in the distal left SFA, the [place] artery substantial calcification identified and the stent [...] atherosclerosis identified. 4. In the right, the [place] right SFA is not filled by contrast [...] dictated regarding the non-vascular findings by the Hook Tender Radiologist. Signed: Shlomo Dockery MDReport Verified Date/Time: 12/27/2019 07:59:51 Reading Location: [place] [address] CT Reading Room [facility] AngelesPOCT-GLUCOSE [id number] 06:56:00 Test Item Value Reference Range Interpretation Comments POC-GLUCOSE METER 39 mg/dL 70-110 LL : Notified RN/: TESTED (BEAKER) (test code = AT [facility] L [address]) [facility] [address]: Printed Circuit Board Pcb Designer/Techni artemio ID = [id number] for Anahi Sherman COMPREHENSIVE METABOLIC [id number] 06:15:00 Test Item Value Reference Range Interpretation [...] S NOT APPLICABLE FOR DIALYSIS PATIEN TS. Printed Circuit Board Pcb Designer ID - ADMINPOCT-GLUCOSE [id number] 06:01:00 Test Item Value Reference Range Interpretation Comments POC-GLUCOSE METER 55 mg/dL 70-110 L : Notified RN/MD: TESTED (BEAKER) (test code = AT SLS [address]) [facility] [address]: Printed Circuit Board Pcb Designer/Techni artemio ID = [id number] for Anahi Sherman CBC W/PLT COUNT & AUTO [id number] 05:44:00 Test Item Value Reference Range Interpretation [...] PERCENT (BEAKER) (test code = 2801) POCT-GLUCOSE [id number] 21:03:00 Test Item Value Reference Range Interpretation Comments POC-GLUCOSE METER 278 mg/dL 70-110 H : Notified RN/MD: TESTED (BEAKER) (test code AT [facility] [address] [address] = 1538) JAYNAJoe [facility] [address]: Printed Circuit Board Pcb Designer/Techni artemio ID = [id number] for Anahi Sherman POCT-GLUCOSE [id number] 16:53:00 Test Item Value Reference Range Interpretation Comments POC-GLUCOSE METER 70 mg/dL 70-110 : [facility] (BEAKER) (test code = [address], [address]) [place] [address]: Printed Circuit Board Pcb Designer/Techni artemio ID = [id number] for Nalini Jean Baptiste POCT-GLUCOSE [id number] 12:11:00 Test Item Value Reference Range Interpretation Comments POC-GLUCOSE METER 97 mg/dL 70-110 : TESTED A T [address] (BEAKER) (test code = [address], [address]) [place] [address]: Printed Circuit Board Pcb Designer/Techni artemio ID = [id number] for Nalini Jean Baptiste POCT-GLUCOSE [id number] 06:21:00 Test Item Value Reference Range Interpretation Comments POC-GLUCOSE METER 71 mg/dL 70-110 : TESTED A T [address] (BEAKER) (test code = [address], 15[address]) [place] [address]: Printed Circuit Board Pcb Designer/Techni artemio ID = [id number] for Nwjanis iufuSukhdeepHolly COMPREHENSIVE METABOLIC [id number] 05:50:00 Test Item Value Reference Range Interpretation [...] S NOT APPLICABLE FOR DIALYSIS PATIEN TS. Printed Circuit Board Pcb Designer ID - ADMINCBC W/PLT COUNT & AUTO [id number] 05:17:00 Test Item Value Reference Range Interpretation [...] (BEAKER) (test code = 2801) Prepare Leuko-Red [id number] 23:54:00 Test Item Value Reference Range Interpretation Comments CROSSMATCH (test code = 2264) COMPATIBLE Unit ABO (test code = O Pos 7011409) UNIT NUMBER (test code = [id number] 934-0) Status (test code = 0863624) [facility] Blood Bank Product (test code RED BLOOD CELLS = 2263) PRODUCT CODE (test code = V4591E19 933-2) [facility] HospitalPrepare Leuko-Red [id number] 23:54:00 Test Item Value Reference Range Interpretation Comments CROSSMATCH (test code = 2264) COMPATIBLE Unit ABO (test code = O Pos 9436745) UNIT NUMBER (test code = [id number] 934-0) Status (test code = 4706741) [facility] Blood Bank Product (test code RED BLOOD CELLS = 2263) PRODUCT CODE (test code = S4566J83 933-2) [facility] HospitalPOCT-GLUCOSE [id number] 21:03:00 Test Item Value Reference Range Interpretation Comments POC-GLUCOSE METER 87 mg/dL 70-110 : TESTED A T [address] (BEAKER) (test code = [address], [address]) [facility] [place] [address]: Printed Circuit Board Pcb Designer/Techni artemio ID = [id number] for Nwad iufu, Holly POCT-GLUCOSE [id number] 17:12:00 Test Item Value Reference Range Interpretation Comments POC-GLUCOSE METER 79 mg/dL 70-110 : TESTED A T [address] (BEAKER) (test code = [address], [address]) [place] [address]: Printed Circuit Board Pcb Designer/Techni artemio ID = [id number] for Nalini Jean Baptiste POCT-GLUCOSE [id number] 11:37:00 Test Item Value Reference Range Interpretation Comments POC-GLUCOSE METER 262 mg/dL 70-110 H : TESTED A T [address] (BEAKER) (test code [address], = 1538) [place] [address]: Printed Circuit Board Pcb Designer/Techni artemio ID = [id number] for Nalini Jean Baptiste COMPREHENSIVE METABOLIC [id number] 06:29:00 Test Item Value Reference Range Interpretation [...] S NOT APPLICABLE FOR DIALYSIS PATIEN TS. Printed Circuit Board Pcb Designer ID - ADMINCBC W/PLT COUNT & AUTO [id number] 06:12:00 Test Item Value Reference Range Interpretation [...] PERCENT (BEAKER) (test code = 2801) POCT-GLUCOSE [id number] 06:09:00 Test Item Value Reference Range Interpretation Comments POC-GLUCOSE METER 83 mg/dL 70-110 : Notified RN/MD: TESTED (BEAKER) (test code = AT [address]LS [address]) [place] [address]: Printed Circuit Board Pcb Designer/Techni artemio ID = [id number] for Anahi Sherman POCT-GLUCOSE [id number] 16:26:00 Test Item Value Reference Range Interpretation Comments POC-GLUCOSE METER 182 mg/dL 70-110 H : Notified RN/MD: TESTED (BEAKER) ([facility] [address] = [address]) [place] [address]: Printed Circuit Board Pcb Designer/Techni artemio ID = [id number] for Alondra Kelley, [id number] 09:17:00 Test Item Value Reference Range Interpretation Comments Rh Factor (test code = POS 2589) ABO Grouping (test code O PINK TOP 12/24/19 @ 0824 = 2588) [facility] HospitalABORH, [id number] 09:17:00 Test Item Value Reference Range Interpretation Comments Rh Factor (test code = POS 2589) ABO Grouping (test code O PINK TOP 12/24/19 @ 0824 = 2588) [facility] HospitalType and screen, [id number] 07:31:00 Test Item Value Reference Range Interpretation Comments ABO/RH AUTOMATED (BEAKER) (test O POSITIVE ECHO code = 2260) Ab Scrn (test code = 890-4) NEGATIVE ECHO [facility] HospitalType and screen, [id number] 07:31:00 Test Item Value Reference Range Interpretation Comments ABO/RH AUTOMATED (BEAKER) (test O POSITIVE ECHO code = 2260) Ab Scrn (test code = 890-4) NEGATIVE ECHO [facility] HospitalCOMPREHENSIVE METABOLIC [id number] 06:42:00 Test Item Value Reference Range Interpretation [...] S NOT APPLICABLE FOR DIALYSIS PATIEN TS. Printed Circuit Board Pcb Designer ID - ADMINPOCT-GLUCOSE [id number] 06:23:00 Test Item Value Reference Range Interpretation Comments POC-GLUCOSE METER 88 mg/dL 70-110 : TESTED A T [address] (BEAKER) (test code = [address], 1538) [facility] [address]: Printed Circuit Board Pcb Designer/Techni artemio ID = [id number] for Anne Busby CBC W/PLT COUNT & AUTO [id number] 06:23:00 Test Item Value Reference Range Interpretation [...] PERCENT (BEAKER) (test code = 2801) POCT-GLUCOSE [id number] 21:38:00 Test Item Value Reference Range Interpretation Comments POC-GLUCOSE METER 126 mg/dL 70-110 H : TESTED A T [address] (BEAKER) (test code [address], = 1538) [facility] [address]: Printed Circuit Board Pcb Designer/Techni artemio ID = [id number] for Anne Busby POCT-GLUCOSE [id number] 16:54:00 Test Item Value Reference Range Interpretation Comments POC-GLUCOSE METER 89 mg/dL 70-110 : Notified RN/MD: TESTED (BEDANIELA) (test code = AT [address]LS [address]) PKJoe, [facility] [address]: Printed Circuit Board Pcb Designer/Techni artemio ID = [id number] for Alondra Kelley MR, EXTREMITY, LOWER, JOINT, WITHOUT CONTRAST, [id number] 16:10:00Unlisted Reason for Exam - Click Yes [...] Jordan Verified Date/Time: 12/23/2019 16:10:32 Reading Location: [facility] B1 C013X Ortho Consult Reading Room MR lower extremity joint only without IV contrast left [id number] 16:10:00Interface, External Ris In - 12/23/2019 4:12 [...] Jordaneport Verified Date/Time: 12/23/2019 16:10:32 Reading Location: [facility] B1 C013X Ortho Consult Reading [facility] only without [...] Verified Date/Time: 12/23/2019 16:10:32 Reading Location: [facility] C013X Ortho Consult Reading Room [facility] CenterMR, BRAIN, WITHOUT [id number] 15:43:00Unlisted Reason for Exam - Click Yes [...] Date/Time: 12/23/2019 15:43:24 MR brain without IV [id number] 15:43:00Interface, External Ris In - 12/23/2019 3:45 [...] Signed: Berta Muniz Verified Date/Time: 12/23/2019 15:43:24 [facility] CenterMR brain without IV [id number] 15:43:00Interface, External Ris In - 12/23/2019 3:45 [...] Signed: Berta Muniz Verified Date/Time: 12/23/2019 15:43:24 [facility]) 2019-12-23 14:16:00 Test Item Value Reference Range Interpretation Comments SARS-COV2/RT-PCR (test Negative Not Detected, Negative, code = 1877030) See external report for linked test SARS-COV-2 PERFORMING LAB [facility] JANET (test code = 3297095) Negative result for this test determines that [...] 564(g) of the Act.Fact Sheet for Healthcare Providers:https://www.quidel.com/sites/default/files/product/documents/Fact_Shee h_LZ_Lpozwqapd_Lvjl_UOLI-YiY-7.pdfFact Sheet for Healthcare Patients:https://www.Minboxidel.com/sites/default/files/product/ documents/Iwxc_Daubn_Lfzskzxv_Fukn_NJJH-MxJ-0.pdfPerforming Laboratory:[facility], [place] [address]Pqfjg / lambda light chains, [id number] 12:25:00 Test Item Value Reference Interpretation Comments Range [place] Lt Chain,Free 474.4 mg/L 3.3-19.4 H (test code = 32987-4) Lambda Lt 225.6 mg/L 5.7-26.3 H Chain,Free (test code = 59337-1) [place]/Lambda,Free 2.1 0.26-1.65 H Free annabelle a/lambda [...] (test code = Performing Lab ZIA) EZ [facility] [address] [place] [address] Jaguar Stein MD, PhD, CORI Lab Interpretation Abnormal (test code = 45239-8) [facility] HospitalKappa / lambda light chains, [id number] 12:25:00 Test Item Value Reference Interpretation Comments Range [place] Lt Chain,Free 474.4 mg/L 3.3-19.4 H (test code = 00297-7) Lambda Lt 225.6 mg/L 5.7-26.3 H Chain,Free (test code = 61201-4) [place]/Lambda,Free 2.1 0.26-1.65 H Free annabelle a/lambda [...] = Performing Lab ZIA) EZ [facility] [address] [place] [address] Jaguar Stein MD, PhD, CORI Lab Interpretation Abnormal (test code = 63271-8) [facility] HospitalPOCT-GLUCOSE [id number] 11:27:00 Test Item Value Reference Range Interpretation Comments POC-GLUCOSE METER 189 mg/dL 70-110 H : Notified RN/MD: TESTED (BEAKER) (test code AT [facility] [address] [place] [address] = 1538) [facility] [address]: Printed Circuit Board Pcb Designer/Techni artemio ID = [id number] for Repa julio, Alondra ARTERIAL DOPPLER LEGS, [id number] 11:22:00Reason for exam:->non healing ulcer , non [...] MDReport Verified Date/Time: 12/23/2019 11:22:31 Reading Location: [facility] Radiology Reading Room Arterial Doppler Legs [id number] 11:22:00 Interface, External Ris In - 12/23/2019 [...] MDReport Verified Date/Time: 12/23/2019 11:22:31 Reading Location: [facility] Radiology Reading Room [facility] AngelesAr[facility] Doppler Legs [id number] 11:22:00Interface, External Ris In - 12/23/2019 11:24 [...] MDReport Verified Date/Time: 12/23/2019 11:22:31 Reading Location: [facility] Radiology Reading Room [facility] AngelesCOMPREHENSIVE METABOLIC PANEL 2019-12-23 04:44:00 Test Item Value [...] S NOT APPLICABLE FOR DIALYSIS PATIEN TS. Printed Circuit Board Pcb Designer ID - ADMINCBC W/PLT COUNT & AUTO [id number] 04:35:00 Test Item Value Reference Range Interpretation [...] H PERCENT (BEAKER) (test code = 2801) [id number] 04:29:00 Test Item Value Reference Range Interpretation Comments Ammonia (test code = 36 See_Comment [Autom ated 11931-7) message] The system which generated this result transmit merna reference range : 17 - 80 mol/L . The reference range was not u sed to interpret th is result as normal/abnormal . ZIA (test code = ZIA) Printed Circuit Board Pcb Designer ID - ADMIN Lab Interpretation Normal (test code = 68940-3) [facility] HospitalAmmonia2020-09-24 04:29:00 Test Item Value Reference Range Interpretation Comments Ammonia (test code = 36 See_Comment [Autom ated 66812-1) message] The system which generated this result transmit merna reference range : 17 - 80 mol/L . The reference range was not u sed to interpret th is result as normal/abnormal . ZIA (test code = ZIA) Printed Circuit Board Pcb Designer ID - ADMIN Lab Interpretation Normal (test code = 69425-6) [facility] HospitalAMMONIA2020-09-24 04:29:00 Test Item Value Reference Range Interpretation Comments AMMONIA (BEAKER) (test code = 348) 36 mol/L 17-80 Printed Circuit Board Pcb Designer ID - ADMINPOCT-GLUCOSE [id number] 20:45:00 Test Item Value Reference Range Interpretation Comments POC-GLUCOSE METER 95 mg/dL 70-110 : TESTED A T [facility] [address] (BEAKER) (test code = [address], 1538) [facility] 77 [address]: Printed Circuit Board Pcb Designer/Techni artemio ID = [id number] for Anne Busby POCT-GLUCOSE [id number] 17:08:00 Test Item Value Reference Range Interpretation Comments POC-GLUCOSE METER 107 mg/dL 70-110 : TESTED A T [facility] [address] (BEAKER) (test code [address], = 1538) [facility] 77 [address]: Printed Circuit Board Pcb Designer/Techni artemio ID = [id number] for Jordyn Fonseca POCT-GLUCOSE [id number] 11:55:00 Test Item Value Reference Range Interpretation Comments POC-GLUCOSE METER 135 mg/dL 70-110 H : TESTED A T [facility] [address] (BEAKER) (test code [address], = 1538) [place] [address]: Printed Circuit Board Pcb Designer/Techni artemio ID = [id number] for Jordyn Fonseca Anti-Nuclear Antibody (ROGER)2019-12-22 11:40:00 Test Item Value Reference Range Interpretation Comments ROGER (test code = 20880-4) Positive Negative A ZIA (test code = ZIA) Test performed by IFA method. Lab Interpretation (test Abnormal code = 29506-3) [facility] HospitalANA Titer & [id number] 11:40:00 Test Item Value Reference Range Interpretation Comments ROGER Titer (test code = 63667-2) 1:40 ROGER Pattern (test code = 1781) Speckled [facility] HospitalAnti-Nuclear Antibody (ROGER)2019-12-22 11:40:00 Test Item Value Reference Range Interpretation Comments ROGER (test code = 83571-5) Positive Negative A ZIA (test code = ZIA) Test performed by IFA method. Lab Interpretation (test Abnormal code = 69674-7) [facility] HospitalANA Titer & [id number] 11:40:00 Test Item Value Reference Range Interpretation Comments ROGER Titer (test code = 38810-6) 1:40 ROGER Pattern (test code = 1781) Speckled [facility] HospitalANTI-NUCLEAR ANTIBODY (ROGER)2019-12-22 11:40:00 Test Item Value Reference Range Interpretation Comments ANTI-NUCLEAR ANTIBODY (ROGER) (BEAKER) Positive Negative A (test code = 418) Test performed by IFA method.ROGER TITER AND [id number] 11:40:00 Test Item Value Reference Range Interpretation Comments ROGER TITER (BEAKER) (test code = :40 1541) ROGER PATTERN (BEAKER) (test code = Speckled 1781) POCT-GLUCOSE [id number] 06:44:00 Test Item Value Reference Range Interpretation Comments POC-GLUCOSE METER 92 mg/dL 70-110 : TESTED A T [facility] [address] (BEAKER) (test code = [address], 1538) [facility] [place] [address]: Printed Circuit Board Pcb Designer/Techni artemio ID = [id number] for Anne Busby COMPREHENSIVE METABOLIC [id number] 06:35:00 Test Item Value Reference Range Interpretation [...] S NOT APPLICABLE FOR DIALYSIS PATIEN TS. Printed Circuit Board Pcb Designer ID - ADMINCBC W/PLT COUNT & AUTO [id number] 06:16:00 Test Item Value Reference Range Interpretation [...] PERCENT (BEAKER) (test code = 2801) POCT-GLUCOSE [id number] 20:38:00 Test Item Value Reference Range Interpretation Comments POC-GLUCOSE METER 85 mg/dL 70-110 : TESTED A T [facility] [address] (BEAKER) (test code = [address], 1538) [place] [address]: Printed Circuit Board Pcb Designer/Techni artemio ID = [id number] for Anne Busby POCT-GLUCOSE [id number] 18:14:00 Test Item Value Reference Range Interpretation Comments POC-GLUCOSE METER 112 mg/dL 70-110 H : TESTED A T [facility] [address] (BEAKER) (test code [address], = 1538) [place] [address]: Printed Circuit Board Pcb Designer/Techni artemio ID = [id number] for Christina r, Berta POCT-GLUCOSE [id number] 13:00:00 Test Item Value Reference Range Interpretation Comments POC-GLUCOSE METER 77 mg/dL 70-110 : TESTED A T [address] [address] (BEAKER) (test code = [address], 1538) [place] [address]: Printed Circuit Board Pcb Designer/Techni artemio ID = [id number] for Christina r, Berta POCT-GLUCOSE [id number] 07:32:00 Test Item Value Reference Range Interpretation Comments POC-GLUCOSE METER 60 mg/dL 70-110 L : TESTED A T [address] [address] (BEAKER) (test code = [address], 1538) [place] [address]: Printed Circuit Board Pcb Designer/Techni artemio ID = [id number] for Marissa Page COMPREHENSIVE METABOLIC [id number] 06:11:00 Test Item Value Reference Range Interpretation [...] S NOT APPLICABLE FOR DIALYSIS PATIEN TS. Printed Circuit Board Pcb Designer ID - ADMINC-Reactive [id number] 06:06:00 Test Item Value Reference Range Interpretation Comments CRP (test code = 676) 1.63 mg/dL 0-0.5 H ZIA (test code = ZIA) Printed Circuit Board Pcb Designer ID - ADMIN Lab Interpretation (test Abnormal code = 38387-1) [facility] HospitalC-Reactive [id number] 06:06:00 Test Item Value Reference Range Interpretation Comments CRP (test code = 676) 1.63 mg/dL 0-0.5 H ZIA (test code = ZIA) Printed Circuit Board Pcb Designer ID - ADMIN Lab Interpretation (test Abnormal code = 50434-9) [facility] HospitalC-REACTIVE [id number] 06:06:00 Test Item Value Reference Range Interpretation Comments C-REACTIVE PROTEIN (BEAKER) (test 1.63 mg/dL 0.00-0.50 H code = 676) Printed Circuit Board Pcb Designer ID - ADMINPOCT-GLUCOSE [id number] 06:04:00 Test Item Value Reference Range Interpretation Comments POC-GLUCOSE METER 56 mg/dL 70-110 L : Notified RN/MD: TESTED (BEAKER) (test code = AT [address]LS L [address]) [facility] [address]: Printed Circuit Board Pcb Designer/Techni artemio ID = [id number] for Nelda Abdi CBC W/PLT COUNT & AUTO [id number] 05:53:00 Test Item Value Reference Range Interpretation [...] (BEAKER) (test code = 2801) U/S, ABDOMINAL, [id number] 22:02:00Reason for exam:->thrombocytopenia / eval for hepatosplenomegalyFINAL [...] MDReport Verified Date/Time: 12/20/2019 22:02:21 US abdomen [id number] 22:02:00Interface, External Ris In - 12/20/2019 10:04 [...] Hever Marin MDReport Verified Date/Time: 12/20/2019 22:02:21 [facility] [id number] 22:02:00Interface, External Ris In - 12/20/2019 10:04 [...] Signed: Hever Marin MDReport Verified Date/Time:12/20/2019 22:02:21 [facility]SE [id number] 20:36:00 Test Item Value Reference Range Interpretation Comments POC-GLUCOSE METER 74 mg/dL 70-110 : Notified RN/MD: TESTED (BEAKER) (test code = AT [address]LS [address]) [facility] [address]: Printed Circuit Board Pcb Designer/Techni artemio ID = [id number] for Nelda Abdi POCT-GLUCOSE [id number] 17:50:00 Test Item Value Reference Range Interpretation Comments POC-GLUCOSE METER 72 mg/dL 70-110 : TESTED A T SLSL 1317 ([facility] (test code = [address] [facility], 1538) [facility] [address]: Printed Circuit Board Pcb Designer/Techni artemio ID = [id number] for Christina osborne Berta CT, BRAIN, WITHOUT [id number] 16:08:00Unlisted Reason for Exam - Click Yes [...] Date/Time: 12/20/2019 16:08:40 CT brain without IV [id number] 16:08:00Interface, External Ris In - 12/20/2019 4:10 [...] Signed: Berta Muniz Verified Date/Time: 12/20/2019 16:08:40 [facility] CenterCT [facility] without IV [id number] 16:08:00 Interface, External Ris In - 12/20/2019 [...] Signed: Berta Muniz Verified Date/Time: 12/20/2019 16:08:40 [facility] Center[facility], FOOT, 2 VIEWS, LEFT 2019-12-20 [...] Monahan Verified Date/Time: 12/20/2019 15:15:25 Reading Location: [facility] Radiology Reading Room , FOOT, 2 VIEWS, [id number] 15:15:00Reason for exam:->Rule out osteomyelitisShould this be [...] MDReport Verified Date/Time: 12/20/2019 15:15:25 Reading Location: [facility] Radiology Reading Room XR foot 2 views [id number] 15:15:00Interface, External Ris In - 12/20/2019 3:17 [...] MDReport Verified Date/Time: 12/20/2019 15:15:25 Reading Location: [facility] Radiology Reading Room [facility] CenterXR foot 2 views [id number] 15:15:00Interface, External Ris In - 12/20/2019 3:17 [...] MDReport Verified Date/Time: 12/20/2019 15:15:25 Reading Location: [facility] Radiology Reading Room [facility] CenterXR foot 2 views [id number] 15:15:00Interface, External Ris In - 12/20/2019 3:17 [...] MDReport Verified Date/Time: 12/20/2019 15:15:25 Reading Location: [facility] Radiology Reading Room [facility] CenterXR foot 2 views [id number] 15:15:00Interface, External Ris In - 12/20/2019 3:17 [...] MDReport Verified Date/Time: 12/20/2019 15:15:25 Reading Location: [facility] Radiology Reading Room [facility] [id number] 14:56:00 Test Item Value Reference Range Interpretation Comments AMMONIA (BEAKER) (test code = 348) 33 mol/L 17-80 Printed Circuit Board Pcb Designer ID - ADMINBlood gas, [id number] 14:41:00 Test Item Value Reference Range Interpretation Comments pH, Arterial (test code 7.33 7.35-7.45 L = 2744-1) pCO2, Arterial (test 58 See_Comment H [Autom ated message] code = 2019) The system Neul generated this result transmit merna reference range : 35 - 45 mmHg. The reference range was not used to interpret this result as normal/abnormal . pO2, Arterial (test 109 See_Comment H [Automa merna message] code = 2703-7) The system Neul generated this result transmit merna reference range [...] % Lab Interpretation Abnormal (test code = 02525-8) [facility], [id number] 14:41:00 Test Item Value Reference Range Interpretation Comments pH, Arterial (test code 7.33 7.35-7.45 L = 2744-1) pCO2, Arterial (test 58 See_Comment H [Autom ated message] code = 2018-10) The system Neul generated this result transmit merna reference range : 35 - 45 mmHg. The reference range was not used to interpret this result as normal/abnormal . pO2, Arterial (test 109 See_Comment H [Automa merna message] code = 2703-7) The system Neul generated this result transmit merna reference range [...] % Lab Interpretation Abnormal (test code = 97525-0) [facility] HospitalBLOOD GAS, [id number] 14:41:00 Test Item Value Reference Range Interpretation [...] code = 1819) 32.0 % Occult blood, [id number] 11:56:00 Test Item Value Reference Range Interpretation Comments Occult blood (test code = 2335-8) Negative Negative Lab Interpretation (test code = Normal 42192-2) [facility] HospitalOccult blood, [id number] 11:56:00 Test Item Value Reference Range Interpretation Comments Occult blood (test code = 2335-8) Negative Negative Lab Interpretation (test code = Normal 97034-1) [facility] HospitalOCCULT BLOOD, [id number] 11:56:00 Test Item Value Reference Range Interpretation Comments FECAL OCCULT BLOOD (BEAKER) (test Negative Negative code = 618) POCT-GLUCOSE [id number] 11:39:00 Test Item Value Reference Range Interpretation Comments POC-GLUCOSE METER 88 mg/dL 70-110 : TESTED A T SLSL [address] (BEAKER) (test code = [address]) [facility] [address]: Printed Circuit Board Pcb Designer/Techni artemio ID = [id number] for Eduarlamar alethea Gifty Wpdmjbkaivt0378-20-08 11:22:00 Test Item Value Reference Range Interpretation Comments Haptoglobin (test code = <8 14-258 L 4542-7) ZIA (test code = ZIA) [employer] Circuit Board Pcb Designer ID - LEONIE F Lab Interpretation (test Abnormal code = 67054-2) [facility] HospitalHaptoglobin2020-09-21 11:22:00 Test Item Value Reference Range Interpretation Comments Haptoglobin (test code = <8 14-258 L 4542-7) ZIA (test code = ZIA) [employer] Board Pcb Designer ID - LEONIE F Lab Interpretation (test Abnormal code = 17127-5) [facility] HospitalHAPTOGLOBIN2020-09-21 11:22:00 Test Item Value Reference Range Interpretation Comments HAPTOGLOBIN (BEAKER) (test code = < mg/dL 14-258 L 366) [employer] Pcb Designer ID - LEONIE 4, [id number] 11:01:00 Test Item Value Reference Range Interpretation Comments Free T4 (test code = 0.52 ng/dL 0.9-1.8 L 3024-7) ZIA (test code = ZIA) [employer] Board Pcb Designer ID - ADMIN Lab Interpretation (test Abnormal code = 07483-3) [facility] HospitalT, [id number] 11:01:00 Test Item Value Reference Range Interpretation Comments Free T4 (test code = 0.52 ng/dL 0.9-1.8 L 3024-7) ZIA (test code = ZIA) [employer]ed Circuit Board Pcb Designer ID - ADMIN Lab Interpretation (test Abnormal code = 65833-4) [place] [address], [id number] 11:01:00 Test Item Value Reference Range Interpretation Comments FREE T4 (BEAKER) (test code = 655) 0.52 ng/dL 0.90-1.80 L [employer] Pcb Designer ID - ADMINPeripheral Blood Smear - Path [id number] 08:19:00 Test Item Value Reference Range Interpretation [...] M.D. code = 2849) (electronic signature) [facility] HospitalPeripheral Blood Smear - Path [id number] 08:19:00 Test Item Value Reference Range Interpretation [...] M.D. code = 2849) (electronic signature) [facility] HospitalPERIPHERAL BLOOD SMEAR - PATHOLOGIST REVIEW 2019-12-20 08:19:00 Test Item Value Reference Range Interpretation Comments RBC MORPHOLOGY Target Cells (BEAKER) (test code = 2846) RBC MORPHOLOGY Basophilic Stippling (BEAKER) (test code = 83396) RBC MORPHOLOGY Nucleated Red Blood Cells (BEAKER) (test code = 76384) PERIPHERAL SMR Normochromic normocytic REVIEW (BEAKER) anemia with a few target (test code = 2640) cells, nucleated RBCs and basophilic stippling. No increase in schistocytes. WBCs normal in number and morphology. Thrombocytopenia with normal platelet morphology. [id number]-[id number]-[id number] Jovita Griffith M.D. 2 (BEAKER) (test (electronic signature) code = 2849) Vitamin B12 and Vqredt6206-15-35 06:37:00 Test Item Value Reference Range Interpretation Comments Vitamin B12 (test 1431 pg/mL 211-911 H code = 2132-9) Folate (test code = 17.00 ng/mL See_Comment [Automa merna 2284-8) message] The system which generated this result transmit merna reference range : >=5.4. The reference range was not used to interpret this result as normal/abnormal . ZIA (test code = ZIA) [employer]ed Circuit Board Pcb Designer ID - ADMIN Lab Interpretation Abnormal (test code = 72584-1) [facility] HospitalVitamin B12 and Pzmrqq8387-11-15 06:37:00 Test Item Value Reference Range Interpretation Comments Vitamin B12 (test 1431 pg/mL 211-911 H code = 2132-9) Folate (test code = 17.00 ng/mL See_Comment [Automa merna 2284-8) message] The system which generated this result transmit merna reference range : >=5.4. The reference range was not used to interpret this result as normal/abnormal . ZIA (test code = ZIA) [employer]ed Circuit Board Pcb Designer ID - ADMIN Lab Interpretation Abnormal (test code = 26324-3) [facility] HospitalVITAMIN B12 AND [id number] 06:37:00 Test Item Value Reference Range Interpretation Comments VITAMIN B12 (BEAKER) (test code = 1431 pg/mL 211-911 H 774) FOLATE (BEAKER) (test code = 362) 17.00 ng/mL >=5.4 [employer] Circuit Board Pcb Designer ID - ADMINPOCT-GLUCOSE [id number] 06:32:00 Test Item Value Reference Range Interpretation Comments POC-GLUCOSE METER 79 mg/dL 70-110 : TESTED A T [address]SL [address] (BEAKER) (test code = [address]) [facility] [place] [address]: Printed Circuit Board Pcb Designer/Techni artemio ID = [id number] for Anahi Sherman Tcisckrv1949-48-04 06:25:00 Test Item Value Reference Range Interpretation Comments Ferritin (test code = 595.00 ng/mL 10-291 H 2276-4) ZIA (test code = ZIA) [employer]ed Circuit Board Pcb Designer ID - ADMIN Lab Interpretation (test Abnormal code = 83578-5) [facility] HospitalTS/Free T4 If Dpwtyiqrg4649-78-42 06:25:00 Test Item Value Reference Range Interpretation Comments TSH (test code = 21.210 See_Comment H [Automated 68942-1) message] The system which generated this result transmit merna reference range : 0.350 - 5.500 uIU/mL. The reference range was not used to interpret this result as normal/abnormal . ZIA (test code = ZIA) [employer]ed [employer] Board Pcb Designer ID - ADMIN Lab Interpretation Abnormal (test code = 34558-5) [facility] HospitalFerritin2020-09-21 06:25:00 Test Item Value Reference Range Interpretation Comments Ferritin (test code = 595.00 ng/mL 10-291 H 2276-4) ZIA (test code = ZIA) Printed Circuit Board Pcb Designer ID - ADMIN Lab Interpretation (test Abnormal code = 31960-7) [facility]TS/Free T4 If Qiwejjsmp0261-25-80 06:25:00 Test Item Value Reference Range Interpretation Comments TSH (test code = 21.210 See_Comment H [Automated 17639-3) message] The system which generated this result transmit merna reference range : 0.350 - 5.500 uIU/mL. The reference range was not used to interpret this result as normal/abnormal . ZIA (test code = ZIA) [employer]ed Circuit Board Pcb Designer ID - ADMIN Lab Interpretation Abnormal (test code = 32278-0) [facility] HospitalFERRITIN2020-09-21 06:25:00 Test Item Value Reference Range Interpretation Comments FERRITIN (BEAKER) (test code = 595.00 ng/mL 10.00-291.00 H 361) [employer]ed Circuit Board Pcb Designer ID - ADMINTSH/FREE T4 IF [id number] 06:25:00 Test Item Value Reference Range Interpretation Comments THYROID STIMULATING HORMONE 21.210 uIU/mL 0.350-5.500 H (BEAKER) (test code = 772) [employer] Circuit Board Pcb Designer ID - ZCSULFnscfbzbbz6315-69-39 06:06:00 Test Item Value Reference Range Interpretation Comments Fibrinogen (test code = 340 mg/dL 550-930 1326-7) ZIA (test code = ZIA) Final Information (Auto Output) Lab Interpretation (test Normal code = 97931-8) [facility] HospitalPT/lKWU6110-06-37 06:06:00 Test Item Value Reference Interpretation Comments Range Protime (test code = 13.5 See_Comment H [Autom ated 5892-2) message] The system which generated this result transmitted reference range : 9.3 - 12.0 sec. The reference range was not used to interpret this result as normal/abnormal . INR (test code = 1.25 See_Comment [Automated 5381-6) message] The system which generated this result transmitted reference range : <=5.90. The reference range was not used to interpret this result as normal/abnormal . PTT (test code = 38.2 See_Comment H [Automated 64359-0) message] The system which generated this result [...] Output) Lab Interpretation Abnormal (test code = 85382-5) [facility] HospitalFibrinogen2020-09-21 06:06:00 Test Item Value Reference Range Interpretation Comments Fibrinogen (test code = 340 mg/dL 113-493 2381-7) ZIA (test code = ZIA) Final Information (Auto Output) Lab Interpretation (test Normal code = 22740-4) [facility] HospitalPT/nVDD9199-01-25 06:06:00 Test Item Value Reference Interpretation Comments Range Protime (test code = 13.5 See_Comment H [Autom ated 5902-2) message] The system which generated this result transmitted reference range : 9.3 - 12.0 sec. The reference range was not used to interpret this result as normal/abnormal . INR (test code = 1.25 See_Comment [Automated 8631-6) message] The system which generated this result transmitted reference range : <=5.90. The reference range was not used to interpret this result as normal/abnormal . PTT (test code = 38.2 See_Comment H [Automated 13899-3) message] The system which generated this result [...] Output) Lab Interpretation Abnormal (test code = 23932-3) [facility] HospitalFIBRINOGEN2020-09-21 06:06:00 Test Item Value Reference Range Interpretation Comments FIBRINOGEN LEVEL (BEAKER) (test 340 mg/dL 200-400 code = 658) Final Information (Auto Output)PT/[id number] 06:06:00 Test Item Value Reference Range Interpretation [...] = 2502-3) ZIA (test code = ZIA) Printed Circuit Board Pcb Designer ID - ADMIN Lab Interpretation (test Abnormal code = 15190-4) [facility] HospitalIron, TIBC, % sat. (without ferritin)2019-12-20 05:59:00 Test Item Value Reference Range Interpretation Comments Iron (test code = 2498-4) 92.0 ug/dL 45-170 TIBC (test code = 2500-7) 151 ug/dL 250-550 L Iron % Saturation (test 61 % 20-55 H code = 2502-3) ZIA (test code = ZIA) Printed Circuit Board Pcb Designer ID - ADMIN Lab Interpretation (test Abnormal code = 35194-5) [facility], [facility], % SAT. (WITHOUT FERRITIN)2019-12-20 05:59:00 Test Item Value Reference Range Interpretation Comments IRON (BEAKER) (test code = 547) 92.0 ug/dL 45.0-170.0 TOTAL IRON BINDING CAPACITY 151 ug/dL 250-550 L (BEAKER) (test code = 769) IRON % SATURATION (2) (BEAKER) 61 % 20-55 H (test code = 2590) Printed Circuit Board Pcb Designer ID - ADMINCOMPREHENSIVE METABOLIC [id number] 05:55:00 Test Item Value Reference Range Interpretation [...] S NOT APPLICABLE FOR DIALYSIS PATIEN TS. Printed Circuit Board Pcb Designer ID - FQWSEX-detnq7353-96-21 05:46:00 Test Item Value Reference Range Interpretation Comments D-Dimer, Quant (test 1.09 mg/L <0.50 H code = 63195-6) ZIA (test code = ZIA) REGARDING D-DIMER RESULTS: The 98% NPV (Negative Predictive Value) for DVT/PE exclusion is 0.50 mg/L FEU as suggested by the medical records coder and as approved by the FDA.Final Information (Auto Output) Lab Interpretation (test Abnormal code = 55540-1) [facility] HospitalD-rrdfv2344-70-69 05:46:00 Test Item Value Reference Range Interpretation Comments D-Dimer, Quant (test 1.09 mg/L <0.50 H code = 99878-9) ZIA (test code = ZIA) REGARDING D-DIMER RESULTS: The 98% NPV (Negative Predictive Value) for DVT/PE exclusion is 0.50 mg/L FEU as suggested by the medical records coder and as approved by the FDA.Final Information (Auto Output) Lab Interpretation (test Abnormal code = 14502-6) [facility] HospitalD-PQFMA1200-64-55 05:46:00 Test Item Value Reference Range Interpretation Comments D-DIMER QUANTITATIVE (BEAKER) (test 1.09 mg/L <0.50 H code = 671) REGARDING D-DIMER RESULTS: The 98% NPV (Negative Predictive Value) for DVT/PE exclusion is 0.50 mg/LFEU as suggested by the medical records coder and as approved by the FDA.Final Information (Auto Output)Reticulocyte [id number] 05:42:00 Test Item Value Reference Range Interpretation Comments % Retic (test code = 49126-3) 5.9 % 0.4-2.9 H Lab Interpretation (test code = Abnormal 50078-2) [facility] HospitalReticulocyte bgiie7423-10-55 05:42:00 Test Item Value Reference Range Interpretation Comments % Retic (test code = 47621-6) 5.9 % 0.4-2.9 H Lab Interpretation (test code = Abnormal 92501-7) [facility] HospitalRETICULOCYTE [id number] 05:42:00 Test Item Value Reference Range Interpretation Comments RETICULOCYTE COUNT PCT (BEAKER) (test 5.9 % 0.4-2.9 H code = 575) CBC W/PLT COUNT & AUTO [id number] 05:33:00 Test Item Value Reference Range Interpretation [...] U/L 107-206 ZIA (test code = ZIA) Printed Circuit Board Pcb Designer ID - ADMIN Lab Interpretation (test Normal code = 62814-9) [facility] HospitalLactate dehydrogenase (LDH)2019-12-19 21:19:00 Test Item Value Reference Range Interpretation Comments LDH (test code = 2532-0) 178 U/L 107-206 ZIA (test code = ZIA) Printed Circuit Board Pcb Designer ID - ADMIN Lab Interpretation (test Normal code = 69317-4) [facility] HospitalLACTATE DEHYDROGENASE (LDH)2019-12-19 21:19:00 Test Item Value Reference Range Interpretation Comments LACTATE DEHYDROGENASE (BEAKER) (test 178 U/L 107-206 code = 635) Printed Circuit Board Pcb Designer ID - ADMINPOCT-GLUCOSE [id number] 20:47:00 Test Item Value Reference Range Interpretation Comments POC-GLUCOSE METER 102 mg/dL 70-110 : TESTED A T SLSL 1317 (BEAKER) (test code [address], = 1538) [facility] [address]: Printed Circuit Board Pcb Designer/Techni artemio ID = [id number] for Anahi Sherman POCT-GLUCOSE [id number] 16:18:00 Test Item Value Reference Range Interpretation Comments POC-GLUCOSE METER 96 mg/dL 70-110 : TESTED A T SLSL [address]17 (BEAKER) (test code = [address]) [place] [address]: Printed Circuit Board Pcb Designer/Techni artemio ID = [id number] for Nalini Jean Baptiste Basic Metabolic [id number] 06:26:00 Test Item Value Reference Range Interpretation Comments Sodium (test code = 138 meq/L 659-994 8189-2) Potassium (test code = 3.9 meq/L 3.6-5.5 2823-3) Chloride (test code = 99 meq/L 98-106 2075-0) CO2 (test code = 30 meq/L 20-29 H 2028-9) BUN (test code = 47 mg/dL 10-26 H 3094-0) Creatinine (test code 3.04 mg/dL 0.5-1.2 H = 2160-0) Glucose (test code = 82 mg/dL 70-110 2345-7) Calcium (test code = 7.9 mg/dL 8.5-10.5 L 89817-7) EGFR (test code = 15 mL/min/1.73 [place] [address]-6) NOT ACCURATE CREATININE CLEARANCE IN PREDICTING GLOMERULAR FILTRATION RATE . ESTIMATED GFR I S NOT APPLICABLE FOR DIALYSIS PATIENTS. ZIA (test code = ZIA) Printed Circuit Board Pcb Designer ID - ADMIN Lab Interpretation Abnormal (test code = 15175-1) [facility] HospitalBasi Metabolic [id number] 06:26:00 Test Item Value Reference Range Interpretation Comments Sodium (test code = 138 meq/L 696-721 6225-2) Potassium (test code = 3.9 meq/L 3.6-5.5 2823-3) Chloride (test code = 99 meq/L 98-106 2075-0) CO2 (test code = 30 meq/L 20-29 H 2028-9) BUN (test code = 47 mg/dL 10-26 H 3094-0) Creatinine (test code 3.04 mg/dL 0.5-1.2 H = 2160-0) Glucose (test code = 82 mg/dL 70-110 2345-7) Calcium (test code = 7.9 mg/dL 8.5-10.5 L 40234-3) EGFR (test code = 15 mL/min/1.[place] [address]-5) NOT ACCURATE CREATININE CLEARANCE IN PREDICTING GLOMERULAR FILTRATION RATE . ESTIMATED GFR I S NOT APPLICABLE FOR DIALYSIS PATIENTS. ZIA (test code = ZIA) Printed Circuit Board Pcb Designer ID - ADMIN Lab Interpretation Abnormal (test code = 70130-7) [facility]BA[facility] METABOLIC [id number] 06:26:00 Test Item Value Reference Range Interpretation [...] S NOT APPLICABLE FOR DIALYSIS PATIEN TS. Printed Circuit Board Pcb Designer ID - ADMINCBC W/PLT COUNT & AUTO [id number] 06:04:00 Test Item Value Reference Range Interpretation [...] PERCENT (BEAKER) (test code = 2801) POCT-GLUCOSE [id number] 05:35:00 Test Item Value Reference Range Interpretation Comments POC-GLUCOSE METER 85 mg/dL 70-110 : Notified RN/MD: TESTED (BEAKER) (test code = AT SLS L [address]) [place] [address]: Printed Circuit Board Pcb Designer/Techni artemio ID = [id number] for Zonia Healy POCT-GLUCOSE [id number] 21:46:00 Test Item Value Reference Range Interpretation Comments POC-GLUCOSE METER 125 mg/dL 70-110 H : Notified RN/MD: TESTED (BEAKER) (test code AT [address] = [address]) [place] [address]: Printed Circuit Board Pcb Designer/Techni artemio ID = [id number] for Kekylee Zonia POCT-GLUCOSE [id number] 16:17:00 Test Item Value Reference Range Interpretation Comments POC-GLUCOSE METER 103 mg/dL 70-110 : TESTED A T SLSL 1317 (BEAKER) (test code [facility] [facility] = 1538) [place] [address]: Printed Circuit Board Pcb Designer/Techni artemio ID = [id number] for Akhil rs, Shelea POCT-GLUCOSE [id number] 07:56:00 Test Item Value Reference Range Interpretation Comments POC-GLUCOSE METER 111 mg/dL 70-110 H : TESTED A T [address] (BEAKER) (test code [address], = 1538) [place] [address]: Printed Circuit Board Pcb Designer/Techni artemio ID = [id number] for Akhil rs, Shelea POCT-GLUCOSE [id number] 06:25:00 Test Item Value Reference Range Interpretation Comments POC-GLUCOSE METER 57 mg/dL 70-110 L : TESTED A T [address] (BEAKER) (test code = [address], [address]) [place] [address]: Printed Circuit Board Pcb Designer/Techni artemio ID = [id number] for Anne Busby POCT-GLUCOSE [id number] 21:55:00 Test Item Value Reference Range Interpretation Comments POC-GLUCOSE METER 76 mg/dL 70-110 : TESTED A T [address] (BEAKER) (test code = [address], 1538) [place] [address]: Printed Circuit Board Pcb Designer/Techni artemio ID = [id number] for Anne Busby POCT-GLUCOSE [id number] 18:03:00 Test Item Value Reference Range Interpretation Comments POC-GLUCOSE METER 81 mg/dL 70-110 : TESTED A T [address] (BEAKER) (test code = [address], [address]) [place] [address]: Printed Circuit Board Pcb Designer/Techni artemio ID = [id number] for Ericka Daniel POCT-GLUCOSE [id number] 12:33:00 Test Item Value Reference Range Interpretation Comments POC-GLUCOSE METER 73 mg/dL 70-110 : TESTED A T [address] (BEAKER) (test code = [address], [address]) [place] [address]: Printed Circuit Board Pcb Designer/Techni artemio ID = [id number] for Marisela Bolton Hepatitis B surface [id number] 10:49:00 Test Item Value Reference Range Interpretation Comments Hep B S Ab (test code <8.0 See_Comment [Auto mated = 57049-4) message] The system which generated this result transmit merna reference range : <8.0 mIU/mL. Th e reference range was not used to interpret this result as normal/abnormal . ZIA (test code = ZIA) Printed Circuit Board Pcb Designer ID - LEONIE Jay Lab Interpretation Normal (test code = 74905-7) [facility]He[facility] B surface [id number] 10:49:00 Test Item Value Reference Range Interpretation Comments Hep B S Ab (test code <8.0 See_Comment [Auto mated = 57743-6) message] The system which generated this result transmit merna reference range : <8.0 mIU/mL. Th e reference range was not used to interpret this result as normal/abnormal . ZIA (test code = ZIA) Printed Circuit Board Pcb Designer ID - LEONIE Jay Lab Interpretation Normal (test code = 61810-0) [facility] HospitalHEPATITIS B SURFACE [id number] 10:49:00 Test Item Value Reference Range Interpretation Comments HEPATITIS B SURFACE ANTIBODY < mIU/mL <8.0 (BEAKER) (test code = 647) Printed Circuit Board Pcb Designer ID - LEONIE FHepatitis B core antibody, [id number] 10:43:00 Test Item Value Reference Range Interpretation Comments Hep B Core Total Ab Nonreactive Nonreactive (test code = 50460-6) ZIA (test code = ZIA) Printed Circuit Board Pcb Designer ID Bijal Jay Lab Interpretation (test Normal code = 04737-9) [facility] C [id number] 10:43:00 Test Item Value Reference Range Interpretation Comments Hepatitis C Ab (test Nonreactive Nonreactive code = 06306-0) ZIA (test code = ZIA) [employer]ed Circuit Board Pcb Designer DIONICIO HADLEY Lab Interpretation (test Normal code = 68355-9) [facility], [id number] 10:43:00 Test Item Value Reference Range Interpretation Comments Hep B Core Total Ab Nonreactive Nonreactive (test code = 01136-7) ZIA (test code = ZIA) [employer] Circuit Board Pcb Designer ID Bijal Jay Lab Interpretation (test Normal code = 52677-8) [facility] C [id number] 10:43:00 Test Item Value Reference Range Interpretation Comments Hepatitis C Ab (test Nonreactive Nonreactive code = 19385-3) ZIA (test code = ZIA) [employer] Circuit [employer] Pcb Designer DIONICIO Jay Lab Interpretation (test Normal code = 03803-8) [facility] C [id number] 10:43:00 Test Item Value Reference Range Interpretation Comments HEPATITIS C ANTIBODY (BEAKER) Nonreactive Nonreactive (test code = 367) [employer] Circuit Board Pcb Designer DIONICIO HADLEY FHEPATITIS B CORE ANTIBODY, [id number] 10:43:00 Test Item Value Reference Range Interpretation Comments HEPATITIS B CORE TOTAL ANTIBODY Nonreactive Nonreactive (BEAKER) (test code = 497) [employer]ed Circuit Board Pcb Designer ID Bijal HADLEY FPOCT-GLUCOSE [id number] 06:31:00 Test Item Value Reference Range Interpretation Comments POC-GLUCOSE METER 67 mg/dL 70-110 L : TESTED A T [facility] 13[address] (BEAKER) (test code = [address], 1538) [facility] [address]: Printed Circuit Board Pcb Designer/Techni artemio ID = [id number] for Ashley austin Anne COMPREHENSIVE METABOLIC [id number] 05:10:00 Test Item Value Reference Range Interpretation [...] S NOT APPLICABLE FOR DIALYSIS PATIEN TS. Printed Circuit Board Pcb Designer ID - ADMINCBC W/PLT COUNT & AUTO [id number] 04:36:00 Test Item Value Reference Range Interpretation [...] PERCENT (BEAKER) (test code = 2801) POCT-GLUCOSE [id number] 21:14:00 Test Item Value Reference Range Interpretation Comments POC-GLUCOSE METER 79 mg/dL 70-110 : TESTED A T [facility] [address] (BEAKER) (test code = [address], 1538) [facility] 77 [address]: Printed Circuit Board Pcb Designer/Techni artemio ID = [id number] for Anne Busby POCT-GLUCOSE [id number] 18:35:00 Test Item Value Reference Range Interpretation Comments POC-GLUCOSE METER 68 mg/dL 70-110 L : Notified RN/MD: TESTED (ROBERT) (test code = AT [facility] L [address] [facility] 1538) [place] [address]: Printed Circuit Board Pcb Designer/Techni artemio ID = [id number] for Alondra Kelley SARS-COV2/RT-PCR ([facility])2019-12-16 17:53:00 Test Item Value Reference Range Interpretation Comments SARS-COV2/RT-PCR (test Negative Not Detected, Negative, code = 7734846) See external report for linked test SARS-COV-2 PERFORMING LAB [facility] (test code = 7681376) Negative result for this test determines that [...] 564(g) of the Act.Fact Sheet for Healthcare Providers:https://www.[employer]/sites/default/files/product/documents/Fact_Shee j_KZ_Wxhhfmqlr_Qvlm_DCHV-EgB-3.pdfFact Sheet for Healthcare Patients:https://www.[employer]/sites/default/files/product/ documents/Uzwi_Ogbyd_Oikogxry_Cqiv_NQEF-KjU-8.pdfPerforming Laboratory:[facility], [place] [address]Rraabsdaw B surface [id number] 16:57:00 Test Item Value Reference Range Interpretation Comments HBsAg Screen (test code = Nonreactive Nonreactive 5195-3) ZIA (test code = ZIA) Printed Circuit Board Pcb Designer ID - ADMIN Lab Interpretation (test Normal code = 91882-2) [facility] B surface [id number] 16:57:00 Test Item Value Reference Range Interpretation Comments HBsAg Screen (test code = Nonreactive Nonreactive 5195-3) ZIA (test code = ZIA) Printed Circuit Board Pcb Designer ID - ADMIN Lab Interpretation (test Normal code = 02392-7) [facility] B SURFACE [id number] 16:57:00 Test Item Value Reference Range Interpretation Comments HEPATITIS B SURFACE ANTIGEN (2) Nonreactive Nonreactive (BEAKER) (test code = 2585) Printed Circuit Board Pcb Designer ID - ADMINANG, TUNNELED CATHETER [id number] 15:06:00Reason for Central Line/PICC?->Need for hemodialysis accessReason [...] the patient's medical record by the nurse. Stores Clerk: Soto Arias M.D. Smalltalk Developer: none. Approach: Right internal jugular vein Estimated [...] needle into the right atrium. A 4 Jamaican micropuncture sheath was placed and a 0.035 wire was advanced into the IVC. A subcutaneous tunnel was created in the left anterior chest wall by blunt dissection. A 23 cm tip to cuff 15.5 Jamaican Duraflow 2 catheter was brought through the [...] Arias MDReport Verified Date/Time: 12/16/2019 15:06:45Reading Location: [facility] Radiology Reading Room IR Tunneled Catheter [id number] 15:06:00 Interface, External Ris In - 12/16/2019 [...] the patient's medical record by the nurse. Stores Clerk: Soto Arias M.D. Ass istant: none. Approach: [...] A 23 cm tip to cuff 15.5 Jamaican Duraflow 2 catheter was brought through the [...] tolerated the procedure well and [facility]. Results: Spot radiograph of the chest demonstrates the new dialysis catheter to lie in theexpected position with its tip overlying the superior right atrium. Impression: 1. Successful, uncomplicated placement of a left internal jugular tunneled dialysiscatheter using sonographic and fluoroscopic guidance and conscious sedation. Signed: Soto Arias MDReport Verified Date/Time: 12/16/2019 15:06:45 Reading Location: [facility] Radiology [facility] 2019-12-16 15:06:00Interface, [...] the patient's medical record by the nurse. Stores Clerk: Soto Arias M.D. Smalltalk Developer: none. Approach: Right internal jugular vein Estimated [...] A 23 cm tip to cuff 15.5 Jamaican Duraflow 2 catheter was brought through the [...] MDReport Verified Date/Time: 12/16/2019 15:06:45 Reading Location: [facility] Radiology Reading Room [facility] CenterPO[facility]UCOSE [id number] 14:59:00 Test Item Value Reference Range Interpretation Comments POC-GLUCOSE METER 70 mg/dL 70-110 : Notified RN/MD: [facility] (test code = AT [facility] L [address]) [facility] [address]: Printed Circuit Board Pcb Designer/Techni artemio ID = [id number] for Alondra Kelley POCT-GLUCOSE [id number] 11:13:00 Test Item Value Reference Range Interpretation Comments POC-GLUCOSE METER 72 mg/dL 70-110 : Notified RN/MD: [facility] (test code = AT [facility] L [address]) [facility] [address]: Printed Circuit Board Pcb Designer/Techni artemio ID = [id number] for Repa julio Alondra RAD, CHEST, 1 VIEW, NON [id number] 09:20:00Reason for exam:->fallShould this be performed at [...] MDReport Verified Date/Time: 12/16/2019 09:20:06 Reading Location: [facility] Radiology Reading Room XR chest 1 view portable / [id number] 09:20:00Interface, External Ris In - 12/16/2019 9:22 [...] MDReport Verified Date/Time: 12/16/2019 09:20:06 Reading Location: [facility] Radiology Reading Room Electronically yeimi d by: SOTO ARIAS MD on 12/16/2019 09:20 [facility] XR chest 1 view portable / [id number] 09:20:00Interface, External Ris In - 12/16/2019 9:22 [...] MDReport Verified Date/Time: 12/16/2019 09:20:06 Reading Location: [facility] Radiology [facility] 2019-12-16 06:03:00 Test Item Value Reference Range Interpretation Comments POC-GLUCOSE METER 74 mg/dL 70-110 : Notified RN/MD: TESTED (BEAKER) (test code = AT [facility] [address] [address]) [place] [facility] [address]: Printed Circuit Board Pcb Designer/Techni artemio ID = [id number] for Zonia Healy BASIC METABOLIC [id number] 05:08:00 Test Item Value Reference Range Interpretation [...] S NOT APPLICABLE FOR DIALYSIS PATIEN TS. Printed Circuit Board Pcb Designer ID - ADMINProthrombin time/[id number] 05:01:00 Test Item Value Reference Interpretation Comments Range Protime (test code = 14.1 See_Comment H [Autom ated 5902-2) message] The system which generated this result transmitted reference range : 9.3 - 12.0 sec. The reference range was not used to interpret this result as normal/abnormal . INR (test code = 1.31 See_Comment [Automated 8341-6) message] The system which generated this result [...] Output) Lab Interpretation Abnormal (test code = 64737-9) [facility]Prothrom[facility]/[id number] 05:01:00 Test Item Value Reference Interpretation Comments [...] Output) Lab Interpretation Abnormal (test code = 56142-5) [facility] HospitalPROTHROMBIN TIME/[id number] 05:01:00 Test Item Value Reference Range Interpretation [...] Information (Auto Output)CBC W/PLT COUNT & AUTO [id number] 04:46:00 Test Item Value Reference Range Interpretation [...] PERCENT (BEAKER) (test code = 2801) POCT-GLUCOSE [id number] 17:13:00 Test Item Value Reference Range Interpretation Comments POC-GLUCOSE METER 220 mg/dL 70-110 H TESTED AT [facility] 6720 (BEAKER) (test [facility] = [facility] [address] BASIC METABOLIC [id number] 15:47:00 Test Item Value Reference Range Interpretation [...] NOT APPLICABLE FOR DIALYSIS PATIEN TS. POCT-GLUCOSE [id number] 11:30:00 Test Item Value Reference Range Interpretation Comments POC-GLUCOSE METER 268 mg/dL 70-110 H TESTED AT [facility] 6720 (BEAKER) (test code = JULIANO Osborne [facility] 1538) [address] POCT-GLUCOSE [id number] 07:08:00 Test Item Value Reference Range Interpretation Comments POC-GLUCOSE METER 208 mg/dL 70-110 H TESTED AT [facility] 6720 (BEAKER) (test code = MATTHIASWA Dylon [facility] 1538) [address] CALCIUM, [id number] 06:47:00 Test Item Value Reference Range Interpretation Comments CALCIUM IONIZED (BEAKER) (test 1.11 mmol/L 1.12-1.27 L code = 698) PH, BLOOD (BEAKER) (test code = 7.40 1810) BASIC METABOLIC [id number] 06:40:00 Test Item Value Reference Range Interpretation [...] S NOT APPLICABLE FOR DIALYSIS PATIEN TS. [id number] 06:33:00 Test Item Value Reference Range Interpretation Comments PHOSPHORUS (BEAKER) (test code = 5.1 mg/dL 2.3-4.7 H 604) [id number] 06:33:00 Test Item Value Reference Range Interpretation Comments MAGNESIUM (BEAKER) (test code = 2.0 mg/dL 1.6-2.6 627) LACTIC ACID, VENOUS, WHOLE [id number] 06:02:00 Test Item Value Reference Range Interpretation Comments LACTATE BLOOD VENOUS (2) (BEAKER) 0.8 mmol/L 0.5-2.2 (test code = 2872) Effective 08/02/2015: Units/Reference Range ChangeNew: 0.5-2.2 mmol/L Previous: 5-20 mg/dLCBC W/PLT COUNT & AUTO [id number] 05:54:00 Test Item Value Reference Range Interpretation [...] PERCENT (BEAKER) (test code = 2801) POCT-GLUCOSE [id number] 21:30:00 Test Item Value Reference Range Interpretation Comments POC-GLUCOSE METER 248 mg/dL 70-110 H TESTED AT [facility] 6720 ([facility] (test code = [place]IANO [place] 1538) [address] RAD, [id number] 21:22:00Reason for exam:->fall, tailbone painFINAL REPORT RAD, [...] Connor Verified Date/Time: 09/04/2017 21:22:03 Reading Location: [address] Reading Room POCT-GLUCOSE [id number] 17:37:00 Test Item Value Reference Range Interpretation Comments POC-GLUCOSE METER 222 mg/dL 70-110 H TESTED AT [facility] 6720 (BEAKER) (test code = JULIANO Osborne [place] 1538) [address] POCT-GLUCOSE [id number] 13:55:00 Test Item Value Reference Range Interpretation Comments POC-GLUCOSE METER 194 mg/dL 70-110 H TESTED AT [facility] 6720 (BEAKER) (test code = JULIANO Osborne [place] 1538) [address] POCT-GLUCOSE [id number] 12:34:00 Test Item Value Reference Range Interpretation Comments POC-GLUCOSE METER 229 mg/dL 70-110 H TESTED AT [facility] 6720 (BEAKER) (test code = JULIANO Osborne [place] 1538) [address] POCT-GLUCOSE [id number] 08:00:00 Test Item Value Reference Range Interpretation Comments POC-GLUCOSE METER 159 mg/dL 70-110 H TESTED AT [facility] 6720 (BEAKER) (test code = JULIANO Osborne [place] 1538) [address] CALCIUM, [id number] 06:00:00 Test Item Value Reference Range Interpretation Comments CALCIUM IONIZED (BEAKER) (test 1.05 mmol/L 1.12-1.27 L code = 698) PH, BLOOD (BEAKER) (test code = 7.45 1810) [id number] 05:59:00 Test Item Value Reference Range Interpretation Comments PHOSPHORUS (BEAKER) (test code = 4.8 mg/dL 2.3-4.7 H 604) [id number] 05:59:00 Test Item Value Reference Range Interpretation Comments MAGNESIUM (BEAKER) (test code = 2.0 mg/dL 1.6-2.6 627) BASIC METABOLIC [id number] 05:59:00 Test Item Value Reference Range Interpretation [...] = 380) CBC W/PLT COUNT & AUTO [id number] 05:32:00 Test Item Value Reference Range Interpretation [...] PERCENT (BEAKER) (test code = 2801) POCT-GLUCOSE [id number] 20:36:00 Test Item Value Reference Range Interpretation Comments POC-GLUCOSE METER 211 mg/dL 70-110 H TESTED AT [place] [address] ([facility]) (test code = [facility] 1538) [address] CREATININE, RANDOM [id number] 19:55:00 Test Item Value Reference Range Interpretation Comments CREATININE URINE (BEAKER) (test 16.1 mg/dL code = 375) Reference Range: No NormalsPROTEIN, RANDOM [id number] 19:55:00 Test Item Value Reference Range Interpretation Comments PROTEIN, URINE (BEAKER) (test code 102 mg/dL 0-14 H = 1569) POCT-GLUCOSE [id number] 18:04:00 Test Item Value Reference Range Interpretation Comments POC-GLUCOSE METER 177 mg/dL 70-110 H TESTED AT [place] [address] ([facility]) (test code = [facility] 1538) [address] POCT-GLUCOSE [id number] 11:59:00 Test Item Value Reference Range Interpretation Comments POC-GLUCOSE METER 244 mg/dL 70-110 H TESTED AT [place] [address] ([facility]) (test code = [facility] 1538) [address] POCT-GLUCOSE [id number] 07:53:00 Test Item Value Reference Range Interpretation Comments POC-GLUCOSE METER 160 mg/dL 70-110 H TESTED AT [facility] 6720 (BEAKER) (test code = JULIANO [place] 1531) [address] BASIC METABOLIC [id number] 05:29:00 Test Item Value Reference Range Interpretation [...] S NOT APPLICABLE FOR DIALYSIS PATIEN TS. [id number] 05:21:00 Test Item Value Reference Range Interpretation Comments MAGNESIUM (BEAKER) (test code = 2.1 mg/dL 1.6-2.6 627) HEPATIC FUNCTION [id number] 05:21:00 Test Item Value Reference Range Interpretation [...] code = 23 U/L 6-55 347) TROPONIN [id number] 05:18:00 Test Item Value Reference Range Interpretation [...] PERCENT (BEAKER) (test code = 2801) TROPONIN [id number] 23:40:00 Test Item Value Reference Range Interpretation [...] acidosis, acute neurological disease, and persistent tachyarrhythmia.POCT-GLUCOSE [id number] 22:51:00 Test Item Value Reference Range Interpretation Comments POC-GLUCOSE METER 214 mg/dL 70-110 H TESTED AT [facility] 6720 ([facility]) (test code = JULIANO Osborne [facility] 1538) [address] RAD, CHEST, 1 VIEW, NON [id number] 21:42:00Reason for exam:->CHEST PAINShould this be performed at the bedside?->YesFINAL REPORT RAD, CHEST, 1 VIEW, NON DEPT INDICATION: CHEST PAIN COMPARISON: Chest x-ray 4 weeks ago TECHNIQUE: Single frontal view of the chest. IMPRESSION:Cardiomegaly.Mild pulmonary interstitial edema with a small right- sided effusion.No acute osseous abnormality. Signed: Dario Abraham MDReport Verified Date/Time: 09/02/2017 21:42:11 Reading Location: [facility] [address] [place] [address] Reading Room CREATININE, RANDOM [id number] 21:10:00 Test Item Value Reference Range Interpretation Comments CREATININE URINE (BEAKER) (test 35.5 mg/dL code = 375) Reference Range: No NormalsSODIUM, RANDOM [id number] 21:10:00 Test Item Value Reference Range Interpretation Comments SODIUM URINE (BEAKER) (test code = 80 meq/L 243) Reference Range: No NormalsURINALYSIS W/ [id number] 20:59:00 Test Item Value Reference Range Interpretation [...] code = 514) SOURCE(BEAKER) (test code = 3227) BASIC METABOLIC [id number] 16:49:00 Test Item Value Reference Range Interpretation [...] S NOT APPLICABLE FOR DIALYSIS PATIEN TS. PT/[id number] 16:38:00 Test Item Value Reference Range Interpretation [...] (BEAKER) (test code = 700) BASIC METABOLIC [id number] 13:43:00 Test Item Value Reference Range Interpretation [...] NOT APPLICABLE FOR DIALYSIS PATIEN TS. POCT-GLUCOSE [id number] 12:44:00 Test Item Value Reference Range Interpretation Comments POC-GLUCOSE METER 283 mg/dL 70-110 H TESTED AT [facility] 6720 (BEAKER) (test code = [place] 1538) [address] CALCIUM, [id number] 07:03:00 Test Item Value Reference Range Interpretation Comments CALCIUM IONIZED (BEAKER) (test 1.02 mmol/L 1.12-1.27 L code = 698) PH, BLOOD (BEAKER) (test code = 7.43 1810) [id number] 05:28:00 Test Item Value Reference Range Interpretation Comments PHOSPHORUS (BEAKER) (test code = 3.3 mg/dL 2.3-4.7 604) [id number] 05:28:00 Test Item Value Reference Range Interpretation Comments MAGNESIUM (BEAKER) (test code = 1.5 mg/dL 1.6-2.6 L 627) BASIC METABOLIC [id number] 05:28:00 Test Item Value Reference Range Interpretation [...] PATIEN TS. CBC W/PLT COUNT & AUTO [id number] 05:06:00 Test Item Value Reference Range Interpretation [...] PERCENT (BEAKER) (test code = 2801) POCT-GLUCOSE [id number] 21:08:00 Test Item Value Reference Range Interpretation Comments POC-GLUCOSE METER 202 mg/dL 70-110 H TESTED AT [place] [address] ([facility]) (test code = [facility] 1538) [address] POCT-GLUCOSE [id number] 16:50:00 Test Item Value Reference Range Interpretation Comments POC-GLUCOSE METER 287 mg/dL 70-110 H TESTED AT [place] [address] ([facility]) (test code = [facility] 1538) [address] POCT-GLUCOSE [id number] 12:21:00 Test Item Value Reference Range Interpretation Comments POC-GLUCOSE METER 213 mg/dL 70-110 H TESTED AT [place] [address] (BEAKER) (test code = [facility] 1538) [address] POCT-GLUCOSE [id number] 08:28:00 Test Item Value Reference Range Interpretation Comments POC-GLUCOSE METER 178 mg/dL 70-110 H TESTED AT [facility] 6720 ([facility]) (test code = [facility] 1538) [address] CALCIUM, [id number] 07:06:00 Test Item Value Reference Range Interpretation Comments CALCIUM IONIZED (BEAKER) (test 0.99 mmol/L 1.12-1.27 L code = 698) PH, BLOOD (BEAKER) (test code = 7.42 1810) [id number] 05:37:00 Test Item Value Reference Range Interpretation Comments PHOSPHORUS (BEAKER) (test code = 3.5 mg/dL 2.3-4.7 604) [id number] 05:37:00 Test Item Value Reference Range Interpretation Comments MAGNESIUM (BEAKER) (test code = 1.6 mg/dL 1.6-2.6 627) BASIC METABOLIC [id number] 05:37:00 Test Item Value Reference Range Interpretation [...] PATIEN TS. CBC W/PLT COUNT & AUTO [id number] 05:07:00 Test Item Value Reference Range Interpretation [...] PERCENT (BEAKER) (test code = 2800) POCT-GLUCOSE [id number] 21:24:00 Test Item Value Reference Range Interpretation Comments POC-GLUCOSE METER 255 mg/dL 70-110 H TESTED AT [facility] 6720 (BEAKER) (test code = JULIANO [place] 1538) [address] POCT-GLUCOSE [id number] 17:11:00 Test Item Value Reference Range Interpretation Comments POC-GLUCOSE METER 244 mg/dL 70-110 H TESTED AT [facility] 6720 ([facility]) (test code = JULIANO Osborne [facility] 1538) [address] POCT-GLUCOSE [id number] 11:54:00 Test Item Value Reference Range Interpretation Comments POC-GLUCOSE METER 209 mg/dL 70-110 H TESTED AT [place] [address] [facility] (test code = JULIANO Osborne [facility] 1538) [address] POCT-GLUCOSE [id number] 08:15:00 Test Item Value Reference Range Interpretation Comments POC-GLUCOSE METER 132 mg/dL 70-110 H TESTED AT [place] [address] ([facility]) (test code = JULIANO Osborne [facility] 1538) [address] RAD, CHEST, 1 VIEW, NON [id number] 07:44:00Reason for exam:->edemaShould this be performed at the bedside?->YesFINAL REPORT Chest one view AP 08/07/2017 7:44 AM CLINICAL INDICATION: edema COMPARISON: 05/31/2017 IMPRESSION: Cardiomediastinal contours are stable. There is mild pulmonary edema,asymmetric to the right. There are trace bilateral pleural effusions, with bibasilar linear atelectasis. Sternotomy wires remain midline. Signed: Regan Cespedes Verified Date/Time: 08/07/2017 07:44:22 Reading Location: [facility] Radiology Reading Room [id number] 05:30:00 Test Item Value Reference Range Interpretation Comments FERRITIN (BEAKER) (test code = 361) 87 ng/mL 5-275 CBC W/PLT COUNT & AUTO [id number] 05:21:00 Test Item Value Reference Range Interpretation [...] % 20-55 L (test code = 2590) [id number] 05:11:00 Test Item Value Reference Range Interpretation Comments PHOSPHORUS (BEAKER) (test code = 3.6 mg/dL 2.3-4.7 604) [id number] 05:11:00 Test Item Value Reference Range Interpretation Comments MAGNESIUM (BEAKER) (test code = 2.0 mg/dL 1.6-2.6 627) BASIC METABOLIC [id number] 05:11:00 Test Item Value Reference Range Interpretation [...] H (BEAKER) (test code = 700) CALCIUM, [id number] 04:58:00 Test Item Value Reference Range Interpretation Comments CALCIUM IONIZED (BEAKER) (test 1.04 mmol/L 1.12-1.27 L code = 698) PH, BLOOD (BEAKER) (test code = 7.41 1810) RETICULOCYTE [id number] 04:51:00 Test Item Value Reference Range Interpretation Comments RETICULOCYTE COUNT PCT (BEAKER) (test 1.2 % 0.5-1.7 code = 575) POCT-GLUCOSE [id number] 20:49:00 Test Item Value Reference Range Interpretation Comments POC-GLUCOSE METER 202 mg/dL 70-110 H TESTED AT [facility] 6720 (BEAKER) (test code = [place] 1538) [address] CREATININE, RANDOM [id number] 18:38:00 Test Item Value Reference Range Interpretation Comments CREATININE URINE (BEAKER) (test 56.3 mg/dL code = 375) Reference Range: No NormalsPROTEIN, RANDOM [id number] 18:38:00 Test Item Value Reference Range Interpretation Comments PROTEIN, URINE (BEAKER) (test code 189 mg/dL 0-14 H = 1569) URINALYSIS W/ [id number] 18:34:00 Test Item Value Reference Range Interpretation [...] 516) SOURCE(BEAKER) (test code = Urine, Voided 0588) POCT-GLUCOSE [id number] 17:38:00 Test Item Value Reference Range Interpretation Comments POC-GLUCOSE METER 143 mg/dL 70-110 H TESTED AT [facility] 6720 (BEAKER) (test code = JULIANO Osborne [place] 1538) [address] POCT-GLUCOSE [id number] 12:30:00 Test Item Value Reference Range Interpretation Comments POC-GLUCOSE METER 218 mg/dL 70-110 H TESTED AT [place] [address] (BEAKER) (test code = JULIANO Osborne [place] 1538) [address] POCT-GLUCOSE [id number] 08:00:00 Test Item Value Reference Range Interpretation Comments POC-GLUCOSE METER 134 mg/dL 70-110 H TESTED AT [place] [address] (BEAKER) (test code = JULIANO Osborne [facility] 1538) [address] CBC W/PLT COUNT & AUTO [id number] 04:23:00 Test Item Value Reference Range Interpretation [...] (BEAKER) (test code = 2801) BASIC METABOLIC [id number] 04:13:00 Test Item Value Reference Range Interpretation [...] S NOT APPLICABLE FOR DIALYSIS PATIEN TS. [id number] 04:10:00 Test Item Value Reference Range Interpretation Comments PHOSPHORUS (BEAKER) (test code = 4.9 mg/dL 2.3-4.7 H 604) [id number] 04:10:00 Test Item Value Reference Range Interpretation Comments MAGNESIUM (BEAKER) (test code = 1.4 mg/dL 1.6-2.6 L 627) [id number] 04:08:00 Test Item Value Reference Range Interpretation Comments FIBRINOGEN LEVEL (BEAKER) (test 548 mg/dl 225-434 H code = 658) [id number] 04:08:00 Test Item Value Reference Range Interpretation Comments PARTIAL THROMBOPLASTIN TIME 37.7 seconds 22.5-36.0 H (BEAKER) (test code = 760) PROTHROMBIN [id number] 04:07:00 Test Item Value Reference Range Interpretation Comments PROTIME (BEAKER) (test code = 16.2 seconds 11.7-14.7 H 759) INR (BEAKER) (test code = 370) 1.3 <=5.9 RECOMMENDED COUMADIN/WARFARIN INR THERAPY RANGESSTANDARD DOSE: 2.0 - 3.0 Includes: PROPHYLAXIS forvenous thrombosis, systemic embolization; TREATMENT for venous thrombosis and/or pulmonary embolus.HIGH RISK: Target INR is 2.5-3.5 for patients with mechanical heart valves.[id number] 16:59:00 Test Item Value Reference Range Interpretation Comments ACTIVATED CLOTTING TIME 219 sec TEST ED AT [facility] 6720 ([facility]) (test code = JULIANO Osborne [place] 441) [address] BASIC METABOLIC [id number] 14:25:00 Test Item Value Reference Range Interpretation [...] NOT APPLICABLE FOR DIALYSIS PATIEN TS. POCT-GLUCOSE [id number] 13:21:00 Test Item Value Reference Range Interpretation Comments POC-GLUCOSE METER 170 mg/dL 70-110 H TESTED AT [facility] 6720 (BEAKER) (test code = [place]IANO [place] 1538) [address] POTASSIUM-STAT [id number] 13:20:00 Test Item Value Reference Range Interpretation Comments POTASSIUM (BEAKER) (test code = 4.2 meq/L 3.6-5.5 379) SODIUM NA-STAT [id number] 13:20:00 Test Item Value Reference Range Interpretation Comments SODIUM (BEAKER) (test code = 381) 133 meq/L 135-148 L HGB/HCT (H&H) - STAT [id number] 12:34:00 Test Item Value Reference Range Interpretation Comments HEMOGLOBIN (BEAKER) (test code = 10.8 g/dL 12.0-15.0 L 410) HEMATOCRIT (BEAKER) (test code = 32.0 % 36.0-45.0 L 411) POTASSIUM-STAT [id number] 08:15:00 Test Item Value Reference Range Interpretation Comments POTASSIUM (BEAKER) (test code = 4.1 meq/L 3.6-5.5 379) BLOOD GAS, [id number] 08:15:00 Test Item Value Reference Range Interpretation [...] code = 1819) 70.0 % SODIUM NA-STAT [id number] 08:15:00 Test Item Value Reference Range Interpretation Comments SODIUM (BEAKER) (test code = 381) 130 meq/L 135-148 L GLUCOSE-STAT [id number] 08:15:00 Test Item Value Reference Range Interpretation Comments GLUCOSE RANDOM (BEAKER) (test code 172 mg/dL 70-110 H = 652) HGB/HCT (H&H) - STAT [id number] 08:15:00 Test Item Value Reference Range Interpretation Comments HEMOGLOBIN (BEAKER) (test code = 8.8 g/dL 12.0-15.0 L 410) HEMATOCRIT (BEAKER) (test code = 26.0 % 36.0-45.0 L 411) BASIC METABOLIC [id number] 07:37:00 Test Item Value Reference Range Interpretation [...] PATIEN TS. CBC W/PLT COUNT & AUTO [id number] 07:20:00 Test Item Value Reference Range Interpretation [...] PERCENT (BEAKER) (test code = 2801) POCT-GLUCOSE [id number] 07:03:00 Test Item Value Reference Range Interpretation Comments POC-GLUCOSE METER 186 mg/dL 70-110 H TESTED AT [facility] 6720 (BEAKER) (test code = JULIANO Osborne [place] 1538) [address] B-TYPE NATRIURETIC FACTOR (BNP)2017-06-10 12:44:00 Test Item Value Reference Range Interpretation Comments B-TYPE NATRIURETIC PEPTIDE 1264 pg/mL 0-100 H (BEAKER) (test code = 700) [id number] 12:36:00 Test Item Value Reference Range Interpretation Comments MAGNESIUM (BEAKER) (test code = 1.6 mg/dL 1.6-2.6 627) BASIC METABOLIC [id number] 12:36:00 Test Item Value Reference Range Interpretation [...] NOT APPLICABLE FOR DIALYSIS PATIEN TS. POCT-GLUCOSE [id number] 12:04:00 Test Item Value Reference Range Interpretation Comments POC-GLUCOSE METER 274 mg/dL 70-110 H TESTED AT [facility] 6720 (BEAKER) (test code = MATTHIASWA Dylon [place] 1538) [address] POCT-GLUCOSE [id number] 07:21:00 Test Item Value Reference Range Interpretation Comments POC-GLUCOSE METER 137 mg/dL 70-110 H TESTED AT [facility] 6720 (BEAKER) (test code = [facility] Dylon [place] 1538) [address] BASIC METABOLIC [id number] 05:10:00 Test Item Value Reference Range Interpretation [...] [facility]ENTER) (test code = 413) POCT-GLUCOSE [id number] 21:23:00 Test Item Value Reference Range Interpretation Comments POC-GLUCOSE METER 240 mg/dL 70-110 H TESTED AT [place] [address] ([facility]) (test code = JULIANO Osborne [facility] 1538) [address] POCT-GLUCOSE [id number] 16:42:00 Test Item Value Reference Range Interpretation Comments POC-GLUCOSE METER 234 mg/dL 70-110 H TESTED AT [place] [address] ([facility]) (test code = MATTHIASWA Dylon [facility] 1538) [address] POCT-GLUCOSE [id number] 13:22:00 Test Item Value Reference Range Interpretation Comments POC-GLUCOSE METER 166 mg/dL 70-110 H TESTED AT [place] [address] ([facility]) (test code = [facility] Dylon [facility] 1538) [address] RAD, CHEST, 1 VIEW, NON [id number] 09:43:00Reason for exam:->s/p ACBShould this be performed [...] Ring MDReport Verified Date/Time: 05/31/2017 09:43:30 ReadingLocation: [facility] B1 C013X Ortho Consult Reading Room POCT-GLUCOSE [id number] 06:57:00 Test Item Value Reference Range Interpretation Comments POC-GLUCOSE METER 136 mg/dL 70-110 H TESTED AT [place] [address] ([facility]) (test code = [facility] Dylon [facility] 1538) [address] CALCIUM, [id number] 06:41:00 Test Item Value Reference Range Interpretation Comments CALCIUM IONIZED ([facility]) (test 1.10 mmol/L 1.12-1.27 L code = 698) PH, BLOOD (BEAKER) (test code = 7.42 1810) [id number] 06:17:00 Test Item Value Reference Range Interpretation Comments PHOSPHORUS (BEAKER) (test code = 3.3 mg/dL 2.3-4.7 604) [id number] 06:17:00 Test Item Value Reference Range Interpretation Comments MAGNESIUM (BEAKER) (test code = 1.8 mg/dL 1.6-2.6 627) BASIC METABOLIC [id number] 06:17:00 Test Item Value Reference Range Interpretation [...] PATIEN TS. CBC W/PLT COUNT & AUTO [id number] 05:07:00 Test Item Value Reference Range Interpretation [...] PERCENT (BEAKER) (test code = 2801) POCT-GLUCOSE [id number] 20:56:00 Test Item Value Reference Range Interpretation Comments POC-GLUCOSE METER 196 mg/dL 70-110 H TESTED AT [facility] 6720 (BEAKER) (test code = JULIANO REYEZ 1538) [address] POCT-GLUCOSE [id number] 16:42:00 Test Item Value Reference Range Interpretation Comments POC-GLUCOSE METER 196 mg/dL 70-110 H TESTED AT [facility] 6720 (BEAKER) (test code = JULIANO Osborne [place] 1538) [address] POCT-GLUCOSE [id number] 11:45:00 Test Item Value Reference Range Interpretation Comments POC-GLUCOSE METER 215 mg/dL 70-110 H TESTED AT [facility] 6720 (BEAKER) (test code = JULIANO Osborne [place] 1538) [address] RAD, CHEST, 1 VIEW, NON [id number] 11:15:00Reason for exam:->s/p ACBShould this be performed at the bedside?->YesFINAL REPORT Chest one view compared to May 28, 2017 Discussion: Airspace opacities are seen in both lower lung regions, probably atelectasis. Correlate clinically for infection. I could not exclude small effusions. No pneumothorax. Upper lungs clear. Signed: Jeannette Nava Verified Date/Time: 05/30/2017 11:15:07 Reading Location: [facility] Radiology Reading Room CALCIUM, [id number] 09:21:00 Test Item Value Reference Range Interpretation Comments CALCIUM IONIZED (BEAKER) (test 1.11 mmol/L 1.12-1.27 L code = 698) PH, BLOOD (BEAKER) (test code = 7.36 1810) BASIC METABOLIC [id number] 07:37:00 Test Item Value Reference Range Interpretation [...] S NOT APPLICABLE FOR DIALYSIS PATIEN TS. [id number] 07:28:00 Test Item Value Reference Range Interpretation Comments PHOSPHORUS (BEAKER) (test code = 3.8 mg/dL 2.3-4.7 604) [id number] 07:28:00 Test Item Value Reference Range Interpretation Comments MAGNESIUM (BEAKER) (test code = 1.9 mg/dL 1.6-2.6 627) CBC W/PLT COUNT & AUTO [id number] 07:26:00 Test Item Value Reference Range Interpretation [...] PERCENT (BEAKER) (test code = 2801) POCT-GLUCOSE [id number] 07:21:00 Test Item Value Reference Range Interpretation Comments POC-GLUCOSE METER 146 mg/dL 70-110 H TESTED AT [place] [address] ([facility]) (test code = [facility] 1538) [address] POCT-GLUCOSE [id number] 22:02:00 Test Item Value Reference Range Interpretation Comments POC-GLUCOSE METER 201 mg/dL 70-110 H TESTED AT [place] [address] ([facility]) (test code = [facility] 1538) [address] POCT-GLUCOSE [id number] 18:27:00 Test Item Value Reference Range Interpretation Comments POC-GLUCOSE METER 240 mg/dL 70-110 H TESTED AT [place] [address] ([facility]) (test code = [facility] 1538) [address] POCT-GLUCOSE [id number] 12:13:00 Test Item Value Reference Range Interpretation Comments POC-GLUCOSE METER 193 mg/dL 70-110 H TESTED AT [place] [address] ([facility]) (test code = [facility] 1538) [address] POCT-GLUCOSE [id number] 09:02:00 Test Item Value Reference Range Interpretation Comments POC-GLUCOSE METER 132 mg/dL 70-110 H TESTED AT [place] [address] ([facility]) (test code = [facility] 1538) [address] CALCIUM, [id number] 05:42:00 Test Item Value Reference Range Interpretation Comments CALCIUM IONIZED (BEAKER) (test 1.12 mmol/L 1.12-1.27 code = 698) PH, BLOOD (BEAKER) (test code = 7.34 1810) COMPREHENSIVE METABOLIC [id number] 05:33:00 Test Item Value Reference Range Interpretation [...] S NOT APPLICABLE FOR DIALYSIS PATIEN TS. [id number] 05:32:00 Test Item Value Reference Range Interpretation Comments PHOSPHORUS (BEAKER) (test code = 3.6 mg/dL 2.3-4.7 604) [id number] 05:32:00 Test Item Value Reference Range Interpretation Comments MAGNESIUM (BEAKER) (test code = 2.2 mg/dL 1.6-2.6 627) CBC W/PLT COUNT & AUTO [id number] 05:01:00 Test Item Value Reference Range Interpretation [...] EOSINOPHILS ABSOLUTE COUNT 0.25 K/ L 0.04-0.36 ([facility]) (test code = 416) BASOPHILS ABSOLUTE COUNT ([facility]) 0.03 K/ L 0.01-0.08 (test code = 417) IMMATURE GRANULOCYTES-RELATIVE 1 % 0-1 PERCENT ([facility]) (test code = 2801) POCT-GLUCOSE [id number] 21:04:00 Test Item Value Reference Range Interpretation Comments POC-GLUCOSE METER 165 mg/dL 70-110 H TESTED AT [place] [address] ([facility]) (test code = JULIANO sOborne [facility] 1538) [address] POCT-GLUCOSE [id number] 17:30:00 Test Item Value Reference Range Interpretation Comments POC-GLUCOSE METER 236 mg/dL 70-110 H TESTED AT [place] [address] ([facility]) (test code = JULIANO Osborne [facility] 1538) [address] RAD, CHEST, 1 VIEW, NON [id number] 13:53:00Reason for exam:->assess for ill-defined opacityShould this [...] MDReport Verified Date/Time: 05/28/2017 13:53:03 Reading Location: [address] Radiology Reading Room POCT-GLUCOSE [id number] 11:53:00 Test Item Value Reference Range Interpretation Comments POC-GLUCOSE METER 215 mg/dL 70-110 H TESTED AT [place] [address] ([facility]) (test code = JULIANO Osborne [facility] 1538) [address] POCT-GLUCOSE [id number] 08:32:00 Test Item Value Reference Range Interpretation Comments POC-GLUCOSE METER 168 mg/dL 70-110 H TESTED AT [facility] 6720 (BEAKER) (test code = [place]IANO [place] 1538) [address] CALCIUM, [id number] 05:44:00 Test Item Value Reference Range Interpretation Comments CALCIUM IONIZED (BEAKER) (test 1.09 mmol/L 1.12-1.27 L code = 698) PH, BLOOD (BEAKER) (test code = 7.38 1810) [id number] 05:44:00 Test Item Value Reference Range Interpretation Comments PHOSPHORUS (BEAKER) (test code = 3.5 mg/dL 2.3-4.7 604) [id number] 05:44:00 Test Item Value Reference Range Interpretation Comments MAGNESIUM (BEAKER) (test code = 1.9 mg/dL 1.6-2.6 627) BASIC METABOLIC [id number] 05:44:00 Test Item Value Reference Range Interpretation [...] PATIEN TS. CBC W/PLT COUNT & AUTO [id number] 05:05:00 Test Item Value Reference Range Interpretation [...] PERCENT (BEAKER) (test code = 2801) POCT-GLUCOSE [id number] 21:03:00 Test Item Value Reference Range Interpretation Comments POC-GLUCOSE METER 173 mg/dL 70-110 H TESTED AT [facility] 6720 (BEAKER) (test code = JULIANO Osborne [place] 1538) [address] [id number] 18:15:00 Test Item Value Reference Range Interpretation Comments ACTIVATED CLOTTING TIME 147 sec TEST ED AT [place] [address] ([facility]) (test code = [place]IANO [place] 441) [address] [id number] 18:15:00 Test Item Value Reference Range Interpretation Comments ACTIVATED CLOTTING TIME 246 sec TEST ED AT [place] [address] ([facility]) (test code = JULIANO Osborne [facility] 441) [address] POCT-GLUCOSE [id number] 12:39:00 Test Item Value Reference Range Interpretation Comments POC-GLUCOSE METER 219 mg/dL 70-110 H TESTED AT [place] [address] ([facility]) (test code = JULIANO Osborne [facility] 1538) [address] RAD, CHEST, 1 VIEW, NON [id number] 10:11:00Reason for exam:->pl effusionShould this be performed at the bedside?->YesFINAL REPORT Chest one view compared to May 26 Discussion: There is cardiac prominence. Upper lungs are clear. Ill-defined basilar densities are similar probably atelectasis. No gross effusion or pneumothorax with bilateral chest tubes in place. Signed: Jeannette Nava Verified Date/Time: 05/27/2017 10:11:44 Reading Location: [facility] Radiology Reading Room POCT-GLUCOSE METER 2017-05-27 07:05:00 Test Item Value Reference Range Interpretation Comments POC-GLUCOSE METER 167 mg/dL 70-110 H TESTED AT [place] [address] ([facility]) (test code = JULIANO Osborne [facility] 1538) [address] CALCIUM, [id number] 06:20:00 Test Item Value Reference Range Interpretation Comments CALCIUM IONIZED ([facility]) (test 0.98 mmol/L 1.12-1.27 L code = 698) PH, BLOOD ([facility]) (test code = 7.50 1810) [id number] 04:56:00 Test Item Value Reference Range Interpretation Comments PHOSPHORUS (BEAKER) (test code = 2.6 mg/dL 2.3-4.7 604) [id number] 04:56:00 Test Item Value Reference Range Interpretation Comments MAGNESIUM (BEAKER) (test code = 2.0 mg/dL 1.6-2.6 627) BASIC METABOLIC [id number] 04:56:00 Test Item Value Reference Range Interpretation [...] PATIEN TS. CBC W/PLT COUNT & AUTO [id number] 04:36:00 Test Item Value Reference Range Interpretation [...] PERCENT (BEAKER) (test code = 2801) POCT-GLUCOSE [id number] 21:29:00 Test Item Value Reference Range Interpretation Comments POC-GLUCOSE METER 147 mg/dL 70-110 H TESTED AT [place] [address] ([facility]) (test code = JULIANO Osborne [facility] 1538) [address] POCT-GLUCOSE [id number] 17:51:00 Test Item Value Reference Range Interpretation Comments POC-GLUCOSE METER 224 mg/dL 70-110 H TESTED AT [place] [address] ([facility]) (test code = JULIANO Osborne [facility] 1538) [address] POCT-GLUCOSE [id number] 13:53:00 Test Item Value Reference Range Interpretation Comments POC-GLUCOSE METER 182 mg/dL 70-110 H TESTED AT [place] [address] ([facility]) (test code = JULIANO Osborne [facility] 1538) [address] RAD, CHEST, 1 VIEW, NON [id number] 08:44:00Reason for exam:->pl effusionShould this be performed [...] Ortegaeport Verified Date/Time: 05/26/2017 08:44:25 Reading Location: [address] Radiology Reading Room POCT- GLUCOSE [id number] 07:43:00 Test Item Value Reference Range Interpretation Comments POC-GLUCOSE METER 113 mg/dL 70-110 H TESTED AT [place] [address] ([facility]) (test code = JULIANO Osborne [facility] 1538) [address] CALCIUM, [id number] 06:31:00 Test Item Value Reference Range Interpretation Comments CALCIUM IONIZED (BEAKER) (test 1.07 mmol/L 1.12-1.27 L code = 698) PH, BLOOD (BEAKER) (test code = 7.38 1810) [id number] 04:51:00 Test Item Value Reference Range Interpretation Comments PHOSPHORUS (BEAKER) (test code = 3.2 mg/dL 2.3-4.7 604) [id number] 04:51:00 Test Item Value Reference Range Interpretation Comments MAGNESIUM (BEAKER) (test code = 2.1 mg/dL 1.6-2.6 627) BASIC METABOLIC [id number] 04:51:00 Test Item Value Reference Range Interpretation [...] PATIEN TS. CBC W/PLT COUNT & AUTO [id number] 04:27:00 Test Item Value Reference Range Interpretation [...] PERCENT (BEAKER) (test code = 2801) POCT-GLUCOSE [id number] 23:48:00 Test Item Value Reference Range Interpretation Comments POC-GLUCOSE METER 123 mg/dL 70-110 H TESTED AT [place] [address] (BEAKER) (test code = JULIANO Osborne [facility] 1538) [address] POCT-GLUCOSE [id number] 16:46:00 Test Item Value Reference Range Interpretation Comments POC-GLUCOSE METER 178 mg/dL 70-110 H TESTED AT [place] [address] (BEAKER) (test code = JULIANO Osborne [facility] 1538) [address] BASIC METABOLIC [id number] 05:53:00 Test Item Value Reference Range Interpretation [...] S NOT APPLICABLE FOR DIALYSIS PATIEN TS. [id number] 05:52:00 Test Item Value Reference Range Interpretation Comments PHOSPHORUS (BEAKER) (test code = 4.2 mg/dL 2.3-4.7 604) [id number] 05:52:00 Test Item Value Reference Range Interpretation Comments MAGNESIUM (BEAKER) (test code = 2.3 mg/dL 1.6-2.6 627) CALCIUM, [id number] 05:27:00 Test Item Value Reference Range Interpretation Comments CALCIUM IONIZED (BEAKER) (test 1.12 mmol/L 1.12-1.27 code = 698) PH, BLOOD (BEAKER) (test code = 7.38 1810) CBC W/PLT COUNT & AUTO [id number] 05:07:00 Test Item Value Reference Range Interpretation [...] = 2801) RAD, CHEST, 1 VIEW, NON [id number] 04:45:00Reason for exam:->pl effusionShould this be performed [...] Verified Date/Time: 05/25/2017 04:45:08 Reading Location: [facility] C013Y CT Body Reading Room POCT-GLUCOSE [id number] 01:52:00 Test Item Value Reference Range Interpretation Comments POC-GLUCOSE METER 126 mg/dL 70-110 H TESTED AT [facility] 6720 (BEAKER) (test code = [place]IANO [place] 1538) [address] POCT-GLUCOSE [id number] 13:07:00 Test Item Value Reference Range Interpretation Comments POC-GLUCOSE METER 118 mg/dL 70-110 H TESTED AT [facility] 6720 (BEAKER) (test code = JULIANO [place] 1538) [address] BRONCHIAL CULTURE + GRAM [id number] 11:35:00 Test Item Value Reference Range Interpretation [...] <1+ gram (BEAKER) (test code = positive 272245) cocci in pairs GRAM STAIN RESULT 1+ gram (BEAKER) (test code = variable rods 228314) 1+ Normal respiratory todd presentRAD, CHEST, 1 VIEW, NON [id number] 06:50:00Reason for exam:->pl effusionShould this be performed at the bedside?->YesFINAL REPORT RAD, CHEST, 1 VIEW, NON DEPT INDICATION: pl effusion COMPARISON:Prior day's exam FINDINGS: Portable frontal view of the chest. IMPRESSION: Support Lines: Stable.Lungs and pleura: Unchanged airspace and pleural opacities. No pneumothorax.Heart and mediastinum: Stable contours. Stable surgical changes.Additional findings: None. Signed: JR Boswell Robert MDReport Verified Date/Time: 05/24/2017 06:50:08 Reading Location: [facility] B1 C013Y CT Body Reading Room BASIC METABOLIC [id number] 04:19:00 Test Item Value Reference Range Interpretation [...] NOT APPLICABLE FOR DIALYSIS PATIEN TS. CALCIUM, [id number] 04:16:00 Test Item Value Reference Range Interpretation Comments CALCIUM IONIZED (BEAKER) (test 1.06 mmol/L 1.12-1.27 L code = 698) PH, BLOOD (BEAKER) (test code = 7.40 1810) [id number] 04:11:00 Test Item Value Reference Range Interpretation Comments PHOSPHORUS (BEAKER) (test code = 6.0 mg/dL 2.3-4.7 H 604) [id number] 04:11:00 Test Item Value Reference Range Interpretation Comments MAGNESIUM (BEAKER) (test code = 2.4 mg/dL 1.6-2.6 627) CBC W/PLT COUNT & AUTO [id number] 03:50:00 Test Item Value Reference Range Interpretation [...] PERCENT (BEAKER) (test code = 2801) POCT-GLUCOSE [id number] 20:45:00 Test Item Value Reference Range Interpretation Comments POC-GLUCOSE METER 143 mg/dL 70-110 H TESTED AT [facility] 6720 (BEAKER) (test code = JULIANO Osborne [facility] 1538) 7[address] POCT-GLUCOSE [id number] 20:45:00 Test Item Value Reference Range Interpretation Comments POC-GLUCOSE METER 145 mg/dL 70-110 H TESTED AT [facility] 6720 ([facility]) (test code = JULIANO Osborne [facility] 1538) [address] [id number] 13:37:00 Test Item Value Reference Range Interpretation Comments PREALBUMIN (BEAKER) 10 mg/dL 14-45 L Specimen slightly (test code = 586) hemolyzed OXYGEN SATURATION, [id number] 12:31:00 Test Item Value Reference Range Interpretation Comments O2 SATURATION (MEASURED) (BEAKER) 94.5 % (test code = 1455) [id number] 11:02:00 Test Item Value Reference Range Interpretation Comments PREALBUMIN (BEAKER) (test code = 10 mg/dL 14-45 L 586) RAD, CHEST, 1 VIEW, NON [id number] 05:14:00while patient is intubated or has chest [...] ALEXANDREeport Verified Date/Time: 05/23/2017 05:14:04 Reading Location: [facility] C013Y HI Body Reading Room BASIC METABOLIC [id number] 03:48:00 Test Item Value Reference Range Interpretation [...] S NOT APPLICABLE FOR DIALYSIS PATIEN TS. [id number] 03:46:00 Test Item Value Reference Range Interpretation Comments MAGNESIUM (BEAKER) 2.4 mg/dL 1.6-2.6 Specimen slightly (test code = 627) hemolyzed [id number] 03:46:00 Test Item Value Reference Range Interpretation Comments PHOSPHORUS (BEAKER) 6.5 mg/dL 2.3-4.7 H Specimen slightly (test code = 604) hemolyzed CBC W/PLT COUNT & AUTO [id number] 03:26:00 Test Item Value Reference Range Interpretation [...] (BEAKER) (test code = 2801) BLOOD GAS, [id number] 03:18:00 Test Item Value Reference Range Interpretation [...] (test code = 1819) 36.0 % CALCIUM, [id number] 16:32:00 Test Item Value Reference Range Interpretation Comments CALCIUM IONIZED (BEAKER) (test 1.11 mmol/L 1.12-1.27 L code = 698) PH, BLOOD (BEAKER) (test code = 7.39 1810) BASIC METABOLIC [id number] 15:43:00 Test Item Value Reference Range Interpretation [...] NOT APPLICABLE FOR DIALYSIS PATIEN TS. POCT-GLUCOSE [id number] 12:53:00 Test Item Value Reference Range Interpretation Comments POC-GLUCOSE METER 118 mg/dL 70-110 H TESTED AT [facility] 6720 (BEAKER) (test code = [facility]UL[facility] 1538) [address] BLOOD GAS, [id number] 10:42:00 Test Item Value Reference Range Interpretation [...] (test code = 1819) 40.0 % POCT-GLUCOSE [id number] 06:46:00 Test Item Value Reference Range Interpretation Comments POC-GLUCOSE METER 106 mg/dL 70-110 TESTED AT [facility] 6720 ([facility] (test code = [facility]ULIAN[facility] 1538) [address] RAD, CHEST, 1 VIEW, NON [id number] 05:05:00while patient is intubated or has chest [...] MDReport Verified Date/Time: 05/22/2017 05:05:00 Reading Location: [facility] B1 C013Y CT Body ReadingRoom BASIC METABOLIC [id number] 05:00:00 Test Item Value Reference Range Interpretation [...] S NOT APPLICABLE FOR DIALYSIS PATIEN TS. [id number] 04:41:00 Test Item Value Reference Range Interpretation Comments PHOSPHORUS (BEAKER) (test code = 6.4 mg/dL 2.3-4.7 H 604) [id number] 04:41:00 Test Item Value Reference Range Interpretation Comments MAGNESIUM (BEAKER) (test code = 2.6 mg/dL 1.6-2.6 627) CALCIUM, [id number] 04:26:00 Test Item Value Reference Range Interpretation Comments CALCIUM IONIZED (BEAKER) (test 1.09 mmol/L 1.12-1.27 L code = 698) PH, BLOOD (BEAKER) (test code = 7.40 1810) OXYGEN SATURATION, [id number] 04:25:00 Test Item Value Reference Range Interpretation Comments O2 SATURATION (MEASURED) (BEAKER) 77.0 % (test code = 1455) CBC W/PLT COUNT & AUTO [id number] 04:17:00 Test Item Value Reference Range Interpretation [...] code = 2801) LACTIC ACID, ARTERIAL, WHOLE [id number] 00:07:00 Test Item Value Reference Range Interpretation Comments LACTATE BLOOD 1.0 mmol/L 0.5-2.2 Specimen sligh tly ARTERIAL (2) (BEAKER) hemoly ted (test code = 2874) Effective 08/02/2015: Units/Reference Range ChangeNew: 0.5-2.2 mmol/L Previous: 5-20 mg/dLPOCT-GLUCOSE [id number] 23:47:00 Test Item Value Reference Range Interpretation Comments POC-GLUCOSE METER 180 mg/dL 70-110 H TESTED AT [facility] 6720 (BEAKER) (test code = [place] 1538) [address] BLOOD GAS, [id number] 23:46:00 Test Item Value Reference Range Interpretation [...] code = 1819) 100.0 % SODIUM NA-STAT [id number] 23:46:00 Test Item Value Reference Range Interpretation Comments SODIUM (BEAKER) (test code = 381) 134 meq/L 135-148 L GLUCOSE-STAT [id number] 23:46:00 Test Item Value Reference Range Interpretation Comments GLUCOSE RANDOM (BEAKER) (test code 119 mg/dL 70-110 H = 652) HGB/HCT (H&H) - STAT [id number] 23:46:00 Test Item Value Reference Range Interpretation Comments HEMOGLOBIN (BEAKER) (test code = 8.8 g/dL 12.0-15.0 L 410) HEMATOCRIT (BEAKER) (test code = 26.0 % 36.0-45.0 L 411) OXYGEN SATURATION, [id number] 23:45:00 Test Item Value Reference Range Interpretation Comments O2 SATURATION (MEASURED) (BEAKER) 68.1 % (test code = 1455) POTASSIUM-STAT [id number] 23:45:00 Test Item Value Reference Range Interpretation Comments POTASSIUM ([facility]) (test code = 5.5 meq/L 3.6-5.5 379) POCT-GLUCOSE [id number] 20:58:00 Test Item Value Reference Range Interpretation Comments POC-GLUCOSE METER 133 mg/dL 70-110 H TESTED AT [place] [address] ([facility]) (test code = [facility] 1538) [address] POCT-GLUCOSE [id number] 17:58:00 Test Item Value Reference Range Interpretation Comments POC-GLUCOSE METER 210 mg/dL 70-110 H TESTED AT [place] [address] ([facility]) (test code = [facility] 1538) [address] POCT-GLUCOSE [id number] 17:58:00 Test Item Value Reference Range Interpretation Comments POC-GLUCOSE METER 211 mg/dL 70-110 H TESTED AT [place] [address] ([facility]) (test code = [facility] 1538) [address] POCT-GLUCOSE [id number] 17:58:00 Test Item Value Reference Range Interpretation Comments POC-GLUCOSE METER 232 mg/dL 70-110 H TESTED AT [place] [address] ([facility]) (test code = [facility] 1538) [address] POCT-GLUCOSE [id number] 17:58:00 Test Item Value Reference Range Interpretation Comments POC-GLUCOSE METER 262 mg/dL 70-110 H TESTED AT [place] [address] ([facility]) (test code = [facility] 1538) [address] BLOOD GAS, [id number] 17:01:00 Test Item Value Reference Range Interpretation Comments PH ARTERIAL ([facility]) (test code = 7.38 7.35-7.45 383) PCO2 ARTERIAL ([facility]) (test code 39 mmHg 35-45 = 384) PO2 ARTERIAL ([facility]) (test code 75 mmHg 80-90 L = 385) O2 SATURATION ARTERIAL ([facility]) 94.9 % 96.0-97.0 L (test code = 386) HCO3 ARTERIAL ([facility]) (test code 23 mmol/L 21-29 = 388) BASE EXCESS ARTERIAL ([facility]) -2.5 mmol/L -2.0-3.0 L (test code = 387) PATIENT TEMPERATURE (BEAKER) 36.8 C (test code = 1818) FIO2 (BEAKER) (test code = 1819) 60.0 % POTASSIUM-STAT [id number] 17:00:00 Test Item Value Reference Range Interpretation Comments POTASSIUM (BEAKER) (test code = 4.8 meq/L 3.6-5.5 379) POCT-GLUCOSE [id number] 15:52:00 Test Item Value Reference Range Interpretation Comments POC-GLUCOSE METER 267 mg/dL 70-110 H TESTED AT [facility] 6720 (BEAKER) (test code = JULIANO Osborne [place] 1538) [address] POCT-GLUCOSE [id number] 14:42:00 Test Item Value Reference Range Interpretation Comments POC-GLUCOSE METER 231 mg/dL 70-110 H TESTED AT [facility] 6720 (BEAKER) (test code = JULIANO Osborne [place] 1538) [address] BODY FLUID CELL COUNT WITH [id number] 14:41:00 Test Item Value Reference Range Interpretation [...] Tube (test code = 2873) BASIC METABOLIC [id number] 14:11:00 Test Item Value Reference Range Interpretation [...] S NOT APPLICABLE FOR DIALYSIS PATIEN TS. [id number] 14:08:00 Test Item Value Reference Range Interpretation Comments PHOSPHORUS (BEAKER) (test code = 7.2 mg/dL 2.3-4.7 H 604) [id number] 14:08:00 Test Item Value Reference Range Interpretation Comments MAGNESIUM (BEAKER) (test code = 2.6 mg/dL 1.6-2.6 627) POCT-GLUCOSE [id number] 12:49:00 Test Item Value Reference Range Interpretation Comments POC-GLUCOSE METER 224 mg/dL 70-110 H TESTED AT [place] [address] ([facility]) (test code = JULIANO Osborne [facility] 1538) [address] POCT-GLUCOSE [id number] 12:49:00 Test Item Value Reference Range Interpretation Comments POC-GLUCOSE METER 248 mg/dL 70-110 H TESTED AT [place] [address] ([facility]) (test code = MATTHIASWA Dylon [facility] 1538) [address] RAD, CHEST, 1 VIEW, NON [id number] 12:32:00Reason for exam:->re-intubationShould this be performed at [...] Verified Date/Time: 05/21/2017 12:32:08 Reading Location: [facility] Room POTASSIUM-STAT [id number] 12:28:00 Test Item Value Reference Range Interpretation Comments POTASSIUM (BEAKER) (test code = 5.5 meq/L 3.6-5.5 379) BLOOD GAS, [id number] 12:28:00 Test Item Value Reference Range Interpretation [...] code = 1819) 100.0 % BLOOD GAS, [id number] 10:53:00 Test Item Value Reference Range Interpretation [...] 36.0 % RAD, CHEST, 1 VIEW, NON [id number] 08:46:00while patient is intubated or has chest [...] left apical pneumothorax is suspected. Signed: Mona [place] Verified Date/Time: 05/21/2017 08:46:27 Reading Location: [facility] Radiology Reading Room BLOOD GAS, [id number] 05:41:00 Test Item Value Reference Range Interpretation [...] (BEAKER) (test code = 1819) 40 CALCIUM, [id number] 04:35:00 Test Item Value Reference Range Interpretation Comments CALCIUM IONIZED (BEAKER) (test 1.13 mmol/L 1.12-1.27 code = 698) PH, BLOOD (BEAKER) (test code = 7.32 1810) BLOOD GAS, [id number] 04:28:00 Test Item Value Reference Range Interpretation [...] (BEAKER) (test code = 1819) 40.0 % [id number] 04:20:00 Test Item Value Reference Range Interpretation Comments PHOSPHORUS (BEAKER) (test code = 6.2 mg/dL 2.3-4.7 H 604) [id number] 04:20:00 Test Item Value Reference Range Interpretation Comments MAGNESIUM (BEAKER) (test code = 2.4 mg/dL 1.6-2.6 627) HEPATIC FUNCTION [id number] 04:20:00 Test Item Value Reference Range Interpretation [...] = 11 U/L 6-55 347) BASIC METABOLIC [id number] 04:20:00 Test Item Value Reference Range Interpretation [...] APPLICABLE FOR DIALYSIS PATIEN TS. OXYGEN SATURATION, [id number] 04:18:00 Test Item Value Reference Range Interpretation Comments O2 SATURATION (MEASURED) (BEAKER) 68.0 % (test code = 1455) LACTIC ACID, ARTERIAL, WHOLE [id number] 04:12:00 Test Item Value Reference Range Interpretation Comments LACTATE BLOOD ARTERIAL (2) 1.0 mmol/L 0.5-2.2 (BEAKER) (test code = 2874) Effective 08/02/2015: Units/Reference Range ChangeNew: 0.5-2.2 mmol/L Previous: 5-20 mg/dLCBC W/PLT COUNT & AUTO [id number] 04:00:00 Test Item Value Reference Range Interpretation [...] (BEAKER) (test code = 2801) BLOOD GAS, [id number] 00:06:00 Test Item Value Reference Range Interpretation [...] (BEAKER) (test code = 1819) 40.0 % [id number] 18:55:00 Test Item Value Reference Range Interpretation Comments PHOSPHORUS (BEAKER) (test code = 4.8 mg/dL 2.3-4.7 H 604) [id number] 18:55:00 Test Item Value Reference Range Interpretation Comments MAGNESIUM (BEAKER) (test code = 2.3 mg/dL 1.6-2.6 627) BASIC METABOLIC [id number] 18:55:00 Test Item Value Reference Range Interpretation [...] DIALYSIS PATIEN TS. LACTIC ACID, ARTERIAL, WHOLE [id number] 18:53:00 Test Item Value Reference Range Interpretation Comments LACTATE BLOOD 0.9 mmol/L 0.5-2.2 Specimen sligh tly ARTERIAL (2) (BEAKER) hemoly zed (test code = 2874) Effective 08/02/2015: Units/Reference Range ChangeNew: 0.5-2.2 mmol/L Previous: 5-20 mg/dLRAD, CHEST, 1 VIEW, NON [id number] 18:44:00Reason for exam:- >postop cardiacShould this be [...] [place] Verified Date/Time: 05/20/2017 18:44:30 Reading Location: [address] Consult Reading Room Electronically signed by: MIGUEL BHAKTA M.D. on05/20/2017 06:44 PMCBC W/PLT COUNT & AUTO [id number] 18:38:00 Test Item Value Reference Range Interpretation [...] (BEAKER) (test code = 2801) OXYGEN SATURATION, [id number] 18:36:00 Test Item Value Reference Range Interpretation Comments O2 SATURATION (MEASURED) (BEAKER) 72.5 % (test code = 1455) From distal port of IJ central venous catheterSODIUM NA-STAT [id number] 18:30:00 Test Item Value Reference Range Interpretation Comments SODIUM (BEAKER) (test code = 381) 132 meq/L 135-148 L HGB/HCT (H&H) - STAT [id number] 18:30:00 Test Item Value Reference Range Interpretation Comments HEMOGLOBIN (BEAKER) (test code = 9.4 g/dL 12.0-15.0 L 410) HEMATOCRIT (BEAKER) (test code = 28.0 % 36.0-45.0 L 411) GLUCOSE-STAT [id number] 18:30:00 Test Item Value Reference Range Interpretation Comments GLUCOSE RANDOM (BEAKER) (test code 159 mg/dL 70-110 H = 652) BLOOD GAS, [id number] 18:30:00 Test Item Value Reference Range Interpretation [...] (test code = 1819) 60.0 % CALCIUM, [id number] 18:30:00 Test Item Value Reference Range Interpretation Comments CALCIUM IONIZED (BEAKER) (test 0.94 mmol/L 1.12-1.27 L code = 698) PH, BLOOD (BEAKER) (test code = 7.34 1810) POTASSIUM-STAT [id number] 18:28:00 Test Item Value Reference Range Interpretation [...] (test 0.0 % 0.0-5.0 code = 1414) [id number] 17:53:00 Test Item Value Reference Range Interpretation Comments ACTIVATED CLOTTING TIME 103 sec TEST ED AT [place] [address] ([facility]) (test code = [place] 441) [address] [id number] 17:53:00 Test Item Value Reference Range Interpretation Comments ACTIVATED CLOTTING TIME 466 sec TEST ED AT [place] [address] ([facility]) (test code = [place] 441) [address] [id number] 17:53:00 Test Item Value Reference Range Interpretation Comments ACTIVATED CLOTTING TIME 543 sec TEST ED AT [place] [address] ([facility]) (test code = [place] 441) [address] [id number] 17:53:00 Test Item Value Reference Range Interpretation Comments ACTIVATED CLOTTING TIME 549 sec TEST ED AT [place] [address] ([facility]) (test code = [place] 441) [address] [id number] 17:53:00 Test Item Value Reference Range Interpretation Comments ACTIVATED CLOTTING TIME 632 sec TEST ED AT [place] [address] ([facility]) (test code = [place] 441) [address] [id number] 17:53:00 Test Item Value Reference Range Interpretation Comments ACTIVATED CLOTTING TIME 494 sec TEST ED AT [place] [address] ([facility]) (test code = [place] 441) [address] [id number] 17:53:00 Test Item Value Reference Range Interpretation Comments ACTIVATED CLOTTING TIME 587 sec TEST ED AT [place] [address] ([facility]) (test code = [place] 441) [address] [id number] 17:53:00 Test Item Value Reference Range Interpretation Comments ACTIVATED CLOTTING TIME 626 sec TEST ED AT [place] [address] ([facility]) (test code = [place] 441) [address] [id number] 17:52:00 Test Item Value Reference Range Interpretation Comments ACTIVATED CLOTTING TIME 808 sec TEST ED AT [place] [address] (BEAKER) (test code = [place] 441) [address] [id number] 16:54:00 Test Item Value Reference Range Interpretation Comments PARTIAL THROMBOPLASTIN TIME 40.2 seconds 22.5-36.0 H (BEAKER) (test code = 760) [id number] 16:53:00 Test Item Value Reference Range Interpretation Comments FIBRINOGEN LEVEL (BEAKER) (test 306 mg/dl 225-434 code = 658) PROTHROMBIN [id number] 16:50:00 Test Item Value Reference Range Interpretation Comments PROTIME (BEAKER) (test code = 19.6 seconds 11.7-14.7 H 759) INR (BEAKER) (test code = 370) 1.7 <=5.9 RECOMMENDED COUMADIN/WARFARIN INR THERAPY RANGESSTANDARD DOSE: 2.0 - 3.0 Includes: PROPHYLAXIS forvenous thrombosis, systemic embolization; TREATMENT for venous thrombosis and/or pulmonary embolus.HIGH RISK: Target INR is 2.5-3.5 for patients with mechanical heart valves.PLATELET [id number] 16:45:00 Test Item Value Reference Range Interpretation Comments PLATELET COUNT (BEAKER) (test 136 K/CU MM 150-450 L code = 756) POTASSIUM-STAT [id number] 16:15:00 Test Item Value Reference Range Interpretation Comments POTASSIUM (BEAKER) (test code = 4.9 meq/L 3.6-5.5 379) BLOOD GAS, [id number] 16:15:00 Test Item Value Reference Range Interpretation [...] code = 1819) 100.0 % SODIUM NA-STAT [id number] 16:15:00 Test Item Value Reference Range Interpretation Comments SODIUM (BEAKER) (test code = 381) 131 meq/L 135-148 L GLUCOSE-STAT [id number] 16:15:00 Test Item Value Reference Range Interpretation Comments GLUCOSE RANDOM (BEAKER) (test code 198 mg/dL 70-110 H = 652) HGB/HCT (H&H) - STAT [id number] 16:15:00 Test Item Value Reference Range Interpretation Comments HEMOGLOBIN (BEAKER) (test code = 7.5 g/dL 12.0-15.0 L 410) HEMATOCRIT (BEAKER) (test code = 22.0 % 36.0-45.0 L 411) CALCIUM, [id number] 16:14:00 Test Item Value Reference Range Interpretation Comments CALCIUM IONIZED (BEAKER) (test 0.91 mmol/L 1.12-1.27 L code = 698) PH, BLOOD (BEAKER) (test code = 7.39 1810) BLOOD GAS, [id number] 15:39:00 Test Item Value Reference Range Interpretation [...] code = 1819) 70.0 % SODIUM NA-STAT [id number] 15:39:00 Test Item Value Reference Range Interpretation Comments SODIUM (BEAKER) (test code = 381) 131 meq/L 135-148 L GLUCOSE-STAT [id number] 15:39:00 Test Item Value Reference Range Interpretation Comments GLUCOSE RANDOM (BEAKER) (test code 186 mg/dL 70-110 H = 652) HGB/HCT (H&H) - STAT [id number] 15:39:00 Test Item Value Reference Range Interpretation Comments HEMOGLOBIN (BEAKER) (test code = 7.5 g/dL 12.0-15.0 L 410) HEMATOCRIT (BEAKER) (test code = 22.0 % 36.0-45.0 L 411) POTASSIUM-STAT [id number] 15:38:00 Test Item Value Reference Range Interpretation Comments POTASSIUM (BEAKER) (test code = 5.3 meq/L 3.6-5.5 379) BLOOD GAS, [id number] 15:24:00 Test Item Value Reference Range Interpretation [...] code = 1819) 70.0 % SODIUM NA-STAT [id number] 15:24:00 Test Item Value Reference Range Interpretation Comments SODIUM (BEAKER) (test code = 381) 130 meq/L 135-148 L GLUCOSE-STAT [id number] 15:24:00 Test Item Value Reference Range Interpretation Comments GLUCOSE RANDOM (BEAKER) (test code 189 mg/dL 70-110 H = 652) HGB/HCT (H&H) - STAT [id number] 15:24:00 Test Item Value Reference Range Interpretation Comments HEMOGLOBIN (BEAKER) (test code = 6.7 g/dL 12.0-15.0 L 410) HEMATOCRIT (BEAKER) (test code = 20.0 % 36.0-45.0 L 411) POTASSIUM-STAT [id number] 15:23:00 Test Item Value Reference Range Interpretation Comments POTASSIUM (BEAKER) (test code = 5.4 meq/L 3.6-5.5 379) BLOOD GAS, [id number] 15:07:00 Test Item Value Reference Range Interpretation [...] code = 1819) 70.0 % SODIUM NA-STAT [id number] 15:07:00 Test Item Value Reference Range Interpretation Comments SODIUM (BEAKER) (test code = 381) 129 meq/L 135-148 L GLUCOSE-STAT [id number] 15:07:00 Test Item Value Reference Range Interpretation Comments GLUCOSE RANDOM (BEAKER) (test code 172 mg/dL 70-110 H = 652) HGB/HCT (H&H) - STAT [id number] 15:07:00 Test Item Value Reference Range Interpretation Comments HEMOGLOBIN (BEAKER) (test code = 7.1 g/dL 12.0-15.0 L 410) HEMATOCRIT (BEAKER) (test code = 21.0 % 36.0-45.0 L 411) POTASSIUM-STAT [id number] 15:04:00 Test Item Value Reference Range Interpretation Comments POTASSIUM (BEAKER) (test code = 5.0 meq/L 3.6-5.5 379) BLOOD GAS, [id number] 14:21:00 Test Item Value Reference Range Interpretation [...] code = 1819) 70.0 % SODIUM NA-STAT [id number] 14:21:00 Test Item Value Reference Range Interpretation Comments SODIUM (BEAKER) (test code = 381) 133 meq/L 135-148 L GLUCOSE-STAT [id number] 14:21:00 Test Item Value Reference Range Interpretation Comments GLUCOSE RANDOM (BEAKER) (test code 160 mg/dL 70-110 H = 652) HGB/HCT (H&H) - STAT [id number] 14:21:00 Test Item Value Reference Range Interpretation Comments HEMOGLOBIN (BEAKER) (test code = 7.5 g/dL 12.0-15.0 L 410) HEMATOCRIT (BEAKER) (test code = 22.0 % 36.0-45.0 L 411) POTASSIUM-STAT [id number] 14:20:00 Test Item Value Reference Range Interpretation Comments POTASSIUM (BEAKER) (test code = 4.7 meq/L 3.6-5.5 379) BLOOD GAS, [id number] 13:58:00 Test Item Value Reference Range Interpretation [...] code = 1819) 80.0 % SODIUM NA-STAT [id number] 13:58:00 Test Item Value Reference Range Interpretation Comments SODIUM (BEAKER) (test code = 381) 132 meq/L 135-148 L GLUCOSE-STAT [id number] 13:58:00 Test Item Value Reference Range Interpretation Comments GLUCOSE RANDOM (BEAKER) (test code 166 mg/dL 70-110 H = 652) HGB/HCT (H&H) - STAT [id number] 13:58:00 Test Item Value Reference Range Interpretation Comments HEMOGLOBIN (BEAKER) (test code = 7.5 g/dL 12.0-15.0 L 410) HEMATOCRIT (BEAKER) (test code = 22.0 % 36.0-45.0 L 411) POTASSIUM-STAT [id number] 13:57:00 Test Item Value Reference Range Interpretation Comments POTASSIUM (BEAKER) (test code = 4.7 meq/L 3.6-5.5 379) BLOOD GAS, [id number] 13:35:00 Test Item Value Reference Range Interpretation [...] (test code = 1819) 80.0 % GLUCOSE-STAT [id number] 13:35:00 Test Item Value Reference Range Interpretation Comments GLUCOSE RANDOM (BEAKER) (test code 130 mg/dL 70-110 H = 652) HGB/HCT (H&H) - STAT [id number] 13:35:00 Test Item Value Reference Range Interpretation Comments HEMOGLOBIN (BEAKER) (test code = 6.7 g/dL 12.0-15.0 L 410) HEMATOCRIT (BEAKER) (test code = 20.0 % 36.0-45.0 L 411) SODIUM NA-STAT [id number] 13:35:00 Test Item Value Reference Range Interpretation Comments SODIUM (BEAKER) (test code = 381) 133 meq/L 135-148 L POTASSIUM-STAT [id number] 13:34:00 Test Item Value Reference Range Interpretation Comments POTASSIUM (BEAKER) (test code = 4.2 meq/L 3.6-5.5 379) BLOOD GAS, [id number] 13:16:00 Test Item Value Reference Range Interpretation [...] code = 1819) 80.0 % SODIUM NA-STAT [id number] 13:16:00 Test Item Value Reference Range Interpretation Comments SODIUM (BEAKER) (test code = 381) 133 meq/L 135-148 L HGB/HCT (H&H) - STAT [id number] 13:16:00 Test Item Value Reference Range Interpretation Comments HEMOGLOBIN (BEAKER) (test code = 6.3 g/dL 12.0-15.0 L 410) HEMATOCRIT (BEAKER) (test code = 19.0 % 36.0-45.0 L 411) CALCIUM, [id number] 13:15:00 Test Item Value Reference Range Interpretation Comments CALCIUM IONIZED (BEAKER) (test 0.98 mmol/L 1.12-1.27 L code = 698) PH, BLOOD (BEAKER) (test code = 7.34 1810) BLOOD GAS, [id number] 13:15:00 Test Item Value Reference Range Interpretation [...] (test code = 1819) 80.0 % GLUCOSE-STAT [id number] 13:14:00 Test Item Value Reference Range Interpretation Comments GLUCOSE RANDOM (BEAKER) (test code = 92 mg/dL 70-110 652) POTASSIUM-STAT [id number] 13:14:00 Test Item Value Reference Range Interpretation Comments POTASSIUM (BEAKER) (test code = 3.9 meq/L 3.6-5.5 379) BLOOD GAS, [id number] 10:54:00 Test Item Value Reference Range Interpretation [...] 1819) 100.0 % HGB/HCT (H&H) - STAT [id number] 10:54:00 Test Item Value Reference Range Interpretation Comments HEMOGLOBIN (BEAKER) (test code = 9.3 g/dL 12.0-15.0 L 410) HEMATOCRIT (BEAKER) (test code = 27.0 % 36.0-45.0 L 411) SODIUM NA-STAT [id number] 10:54:00 Test Item Value Reference Range Interpretation Comments SODIUM (BEAKER) (test code = 381) 132 meq/L 135-148 L GLUCOSE-STAT [id number] 10:52:00 Test Item Value Reference Range Interpretation Comments GLUCOSE RANDOM (BEAKER) (test code = 94 mg/dL 70-110 652) POTASSIUM-STAT [id number] 10:52:00 Test Item Value Reference Range Interpretation Comments POTASSIUM (BEAKER) (test code = 4.0 meq/L 3.6-5.5 379) HEMOGLOBIN [id number] 09:50:00 Test Item Value Reference Range Interpretation Comments HEMOGLOBIN A1C (BEAKER) (test code = 10.6 % 4.3-6.1 H 368) PLATELET AGGREGATION: FUNCTION [id number] 08:27:00 Test Item Value Reference Range Interpretation Comments WEAK ADP 63 % 60-91 RESULT(BEAKER) (test code = 2135) PLATELET FUNCTION 60-100% indicates SCREEN INTERP (BEAKER) normal platelet (test code = 2173) function [id number] Toshia Post MD ([facility]) (test code = (electronic signature) 6985) PLATELET COUNT AGG 198 K/CU MM 150-450 (BEAKER) (test code = 8916) for patients on clopidogrel in past two weeksPOCT-GLUCOSE [id number] 08:11:00 Test Item Value Reference Range Interpretation Comments POC-GLUCOSE METER 116 mg/dL 70-110 H TESTED AT [facility] (test code = [place] 1538) [address] [id number] 07:10:00 Test Item Value Reference Range Interpretation Comments PHOSPHORUS (BEAKER) (test code = 4.5 mg/dL 2.3-4.7 604) [id number] 07:10:00 Test Item Value Reference Range Interpretation Comments MAGNESIUM (BEAKER) (test code = 2.1 mg/dL 1.6-2.6 627) BASIC METABOLIC [id number] 07:10:00 Test Item Value Reference Range Interpretation [...] = 700) CBC W/PLT COUNT & AUTO [id number] 06:46:00 Test Item Value Reference Range Interpretation [...] PERCENT (BEAKER) (test code = 2801) CALCIUM, [id number] 06:40:00 Test Item Value Reference Range Interpretation Comments CALCIUM IONIZED (BEAKER) (test 1.06 mmol/L 1.12-1.27 L code = 698) PH, BLOOD (BEAKER) (test code = 7.39 1810) POCT-GLUCOSE [id number] 23:22:00 Test Item Value Reference Range Interpretation Comments POC-GLUCOSE METER 165 mg/dL 70-110 H TESTED AT [facility] 6720 (BEAKER) (test code = JULIANO REYEZ 1536) [address] URINE PROTEIN ELECTROPHORESIS, [id number] 18:02:00 Test Item Value Reference Range Interpretation Comments PROTEIN, URINE 305 mg/dL 0-14 H (BEAKER) (test code = 1569) ALBUMIN URINE ELP 70.9 % (BEAKER) (test code = 1018) GAMMA GLOBULIN URINE 29.1 % (BEAKER) (test code = 1015) UPEP, [id number] (BEAKER) No monoclonal bands (test code = 9125) detected. [id number] Rocio Galindo MD ([facility]) (test code = (electronic signature) 3723) PROTEIN ELECTROPHORESIS, [id number] 17:57:00 Test Item Value Reference Range Interpretation [...] all globulin fractions. No monoclonal bands detected. [id number] Rocio Galindo MD ([facility]) (test code = (electronic signature) 0365) PROTEIN TOTAL SERUM, 5.5 gm/dL 6.0-8.3 L SPEP (BEAKER) (test code = 6150) POCT-GLUCOSE [id number] 17:15:00 Test Item Value Reference Range Interpretation Comments POC-GLUCOSE METER 209 mg/dL 70-110 H TESTED AT [facility] 6720 (BEAKER) (test code = JULIANO Osborne [facility] 1538) [address] BLOOD GAS, [id number] 15:54:00 Test Item Value Reference Range Interpretation [...] 36.0 % RAD, CHEST, 1 VIEW, NON [id number] 14:07:00Reason for exam:->SOB, hypoxemiaShould this be performed [...] Regan Cespedes Verified Date/Time: 05/19/2017 14:07:07 Reading Location:[address] Consult Reading Room POCT-GLUCOSE [id number] 11:26:00 Test Item Value Reference Range Interpretation Comments POC-GLUCOSE METER 262 mg/dL 70-110 H TESTED AT [place] [address] ([facility]) (test code = [facility] 1538) [address] POCT-GLUCOSE [id number] 07:37:00 Test Item Value Reference Range Interpretation Comments POC-GLUCOSE METER 170 mg/dL 70-110 H TESTED AT [place] [address] ([facility]) (test code = [facility] 1538) [address] CALCIUM, [id number] 06:06:00 Test Item Value Reference Range Interpretation Comments CALCIUM IONIZED (BEAKER) (test 1.05 mmol/L 1.12-1.27 L code = 698) PH, BLOOD ([facility]) (test code = 7.41 1810) [id number] 05:38:00 Test Item Value Reference Range Interpretation Comments PHOSPHORUS (BEAKER) (test code = 3.9 mg/dL 2.3-4.7 604) [id number] 05:38:00 Test Item Value Reference Range Interpretation Comments MAGNESIUM (BEAKER) (test code = 2.2 mg/dL 1.6-2.6 627) BASIC METABOLIC [id number] 05:38:00 Test Item Value Reference Range Interpretation [...] PATIEN TS. CBC W/PLT COUNT & AUTO [id number] 05:09:00 Test Item Value Reference Range Interpretation [...] PERCENT (BEAKER) (test code = 2801) POCT-GLUCOSE [id number] 22:08:00 Test Item Value Reference Range Interpretation Comments POC-GLUCOSE METER 263 mg/dL 70-110 H TESTED AT [place] [address] ([facility]) (test code = JULIANO [place] 1538) [address] POCT-GLUCOSE [id number] 17:20:00 Test Item Value Reference Range Interpretation Comments POC-GLUCOSE METER 233 mg/dL 70-110 H TESTED AT [place] [address] ([facility]) (test code = JULIANO [place] 1538) [address] POCT-GLUCOSE [id number] 08:28:00 Test Item Value Reference Range Interpretation Comments POC-GLUCOSE METER 154 mg/dL 70-110 H TESTED AT [place] [address] (BEAKER) (test code = JULIANO Osborne [place] 1538) [address] BASIC METABOLIC [id number] 06:41:00 Test Item Value Reference Range Interpretation [...] S NOT APPLICABLE FOR DIALYSIS PATIEN TS. [id number] 06:35:00 Test Item Value Reference Range Interpretation Comments PHOSPHORUS (BEAKER) (test code = 4.1 mg/dL 2.3-4.7 604) [id number] 06:35:00 Test Item Value Reference Range Interpretation Comments MAGNESIUM (BEAKER) (test code = 2.1 mg/dL 1.6-2.6 627) CALCIUM, [id number] 06:22:00 Test Item Value Reference Range Interpretation Comments CALCIUM IONIZED (BEAKER) (test 1.10 mmol/L 1.12-1.27 L code = 698) PH, BLOOD (BEAKER) (test code = 7.38 1810) CBC W/PLT COUNT & AUTO [id number] 06:04:00 Test Item Value Reference Range Interpretation [...] PERCENT (BEAKER) (test code = 2801) POCT-GLUCOSE [id number] 03:44:00 Test Item Value Reference Range Interpretation Comments POC-GLUCOSE METER 220 mg/dL 70-110 H TESTED AT [facility] 6720 (BEAKER) (test code = MATTHIASAMANDA [place] 1538) [address] POCT-GLUCOSE [id number] 18:27:00 Test Item Value Reference Range Interpretation Comments POC-GLUCOSE METER 256 mg/dL 70-110 H TESTED AT [place] [address] ([facility]) (test code = JULIANO Osborne [place] 1538) [address] POCT-GLUCOSE [id number] 15:45:00 Test Item Value Reference Range Interpretation Comments POC-GLUCOSE METER 278 mg/dL 70-110 H TESTED AT [place] [address] ([facility]) (test code = JULIANO Osborne [place] 1538) [address] POCT-GLUCOSE [id number] 13:22:00 Test Item Value Reference Range Interpretation Comments POC-GLUCOSE METER 278 mg/dL 70-110 H TESTED AT [place] [address] ([facility]) (test code = [facility] Dylon [place] 1538) [address] PLATELET AGGREGATION: FUNCTION [id number] 13:18:00 Test Item Value Reference Range Interpretation Comments WEAK ADP 66 % 60-91 RESULT([facility]) (test code = 2135) PLATELET FUNCTION 60-100% indicates SCREEN INTERP ([facility]) normal platelet (test code = 2173) function [id number] Rigoberto Duenas MD ([facility]) (test code = (electronic signature) 7232) PLATELET COUNT AGG 204 K/CU MM 150-450 ([facility]) (test code = 2656) POCT-GLUCOSE [id number] 08:27:00 Test Item Value Reference Range Interpretation Comments POC-GLUCOSE METER 189 mg/dL 70-110 H TESTED AT [place] [address] ([facility]) (test code = [facility] Dylon [facility] 1538) [address] CALCIUM, [id number] 06:12:00 Test Item Value Reference Range Interpretation Comments CALCIUM IONIZED (BEAKER) (test 1.07 mmol/L 1.12-1.27 L code = 698) PH, BLOOD ([facility]) (test code = 7.36 1810) [id number] 05:43:00 Test Item Value Reference Range Interpretation Comments PHOSPHORUS (BEAKER) (test code = 3.6 mg/dL 2.3-4.7 604) [id number] 05:43:00 Test Item Value Reference Range Interpretation Comments MAGNESIUM (BEAKER) (test code = 2.1 mg/dL 1.6-2.6 627) BASIC METABOLIC [id number] 05:43:00 Test Item Value Reference Range Interpretation [...] PATIEN TS. CBC W/PLT COUNT & AUTO [id number] 05:05:00 Test Item Value Reference Range Interpretation [...] PERCENT (BEAKER) (test code = 2801) POCT-GLUCOSE [id number] 21:32:00 Test Item Value Reference Range Interpretation Comments POC-GLUCOSE METER 176 mg/dL 70-110 H TESTED AT [place] [address] ([facility]) (test code = [facility] 1538) [address] POCT-GLUCOSE [id number] 20:27:00 Test Item Value Reference Range Interpretation Comments POC-GLUCOSE METER 161 mg/dL 70-110 H TESTED AT [place] [address] ([facility]) (test code = [facility] 1538) [address] POCT-GLUCOSE [id number] 18:23:00 Test Item Value Reference Range Interpretation Comments POC-GLUCOSE METER 185 mg/dL 70-110 H TESTED AT [place] [address] ([facility]) (test code = [facility] 1538) [address] POCT-GLUCOSE [id number] 13:26:00 Test Item Value Reference Range Interpretation Comments POC-GLUCOSE METER 282 mg/dL 70-110 H TESTED AT [place] [address] ([facility]) (test code = [facility] 1538) [address] URINE [id number] 10:12:00 Test Item Value Reference Range Interpretation Comments CULTURE (BEAKER) (test >100,000 col/mL skin code = 1095) todd POCT-GLUCOSE [id number] 09:01:00 Test Item Value Reference Range Interpretation Comments POC-GLUCOSE METER 268 mg/dL 70-110 H TESTED AT [facility] 6720 (BEAKER) (test code = JULIANO Osborne [facility] 1538) [address] CALCIUM, [id number] 05:39:00 Test Item Value Reference Range Interpretation Comments CALCIUM IONIZED (BEAKER) (test 0.84 mmol/L 1.12-1.27 L code = 698) PH, BLOOD (BEAKER) (test code = 7.35 1810) BASIC METABOLIC [id number] 05:07:00 Test Item Value Reference Range Interpretation [...] S NOT APPLICABLE FOR DIALYSIS PATIEN TS. [id number] 05:06:00 Test Item Value Reference Range Interpretation Comments PHOSPHORUS (BEAKER) (test code = 3.2 mg/dL 2.3-4.7 604) [id number] 05:06:00 Test Item Value Reference Range Interpretation Comments MAGNESIUM (BEAKER) (test code = 2.3 mg/dL 1.6-2.6 627) CBC W/PLT COUNT & AUTO [id number] 04:42:00 Test Item Value Reference Range Interpretation [...] = 2801) RHEUMATOID FACTOR AB, REFLEX TO [id number] 01:52:00 Test Item Value Reference Range Interpretation Comments RHEUMATOID FACTOR (ROBERT) (test Negative code = 573) POCT-GLUCOSE [id number] 21:57:00 Test Item Value Reference Range Interpretation Comments POC-GLUCOSE METER 105 mg/dL 70-110 TESTED AT [facility] 6720 (ROBERT) (test code = JULIANO Osborne [facility] 1538) [address] POCT-GLUCOSE [id number] 18:11:00 Test Item Value Reference Range Interpretation Comments POC-GLUCOSE METER 312 mg/dL 70-110 H Notified Dylon Austin MD/TESTED (ROBERT) (test code = AT [facility] 6720 [facility] 1538) [facility] 7703 0 PET, CARDIAC PERFUSION MULTIPLE STUDIES, REST AND [id number] 16:28:00 Reason for exam:->pvcs, known cadFINAL REPORT PROCEDURE: Rest/Stress MYOCARDIAL PERFUSION PET with regadenoson\\XA9\\ CPT CODE: 86986 INDICATION: Defined extent and severity of known [...] is 23%. LVEF at stress is 36%. Roll Off Driver CT images revealed a right pleural [...] Whaley Verified Date/Time: 05/15/2017 16:28:12 Reading Location: [address] ReadingRoom RAD, CHEST, 1 VIEW, NON [id number] 15:56:00Reason for exam:->SOBShould this be performed at the bedside?->YesFINAL REPORT Comparison: 05/14/2017 TECHNIQUE: Single view of the chest FINDINGS: There is a small right pleural effusion with nonspecific airspace disease. This is unchanged. Left lung is grossly clear. Cardiac silhouette is enlarged. IMPRESSION: 1. No acute cardiopulmonary disease. Signed: Satish, Loving MDReport Verified Date/Time: 05/15/2017 15:56:39 Reading Location: [facility] iology Reading Room POCT-GLUCOSE [id number] 12:54:00 Test Item Value Reference Range Interpretation Comments POC-GLUCOSE METER 308 mg/dL 70-110 H Notified R Sonya PIERRE/TESTED (ROBERT) (test code = AT [facility] 6720 [facility] 1538) [facility] 7703 0 U/S, RENAL WITH [id number] 11:04:00Reason for exam:->tracy, htnShould this be performed [...] Hobbseport Verified Date/Time: 05/15/2017 11:04:01 Reading Location: [address] Ultrasound Reading Room ANA TITER AND [id number] 10:57:00 Test Item Value Reference Range Interpretation Comments ROGER TITER (BEAKER) (test code = :160 1541) ROGER PATTERN (BEAKER) (test code = Speckled 1781) ANTI-NUCLEAR ANTIBODY (ROGER)2017-05-15 10:56:00 Test Item Value Reference Range Interpretation Comments ANTI-NUCLEAR ANTIBODY (ROGER) (BEAKER) Positive Negative A (test code = 418) CALCIUM, [id number] 06:00:00 Test Item Value Reference Range Interpretation Comments CALCIUM IONIZED (BEAKER) (test 1.07 mmol/L 1.12-1.27 L code = 698) PH, BLOOD (BEAKER) (test code = 7.28 1810) HEPATITIS PANEL, [id number] 05:01:00 Test Item Value Reference Range Interpretation Comments HEPATITIS A IGM ANTIBODY (BEAKER) Nonreactive Nonreactive (test code = 498) HEPATITIS B CORE IGM ANTIBODY Nonreactive Nonreactive (BEAKER) (test code = 645) HEPATITIS C ANTIBODY (BEAKER) Nonreactive Nonreactive (test code = 367) HEPATITIS B SURFACE ANTIGEN (2) Nonreactive Nonreactive (BEAKER) (test code = 2585) BASIC METABOLIC [id number] 04:48:00 Test Item Value Reference Range Interpretation [...] NOT APPLICABLE FOR DIALYSIS PATIEN TS. URIC [id number] 04:41:00 Test Item Value Reference Range Interpretation Comments URIC ACID (BEAKER) (test code = 10.3 mg/dL 2.6-7.2 H 773) [id number] 04:41:00 Test Item Value Reference Range Interpretation Comments MAGNESIUM (BEAKER) (test code = 2.0 mg/dL 1.6-2.6 627) [id number] 04:41:00 Test Item Value Reference Range Interpretation Comments PHOSPHORUS (BEAKER) (test code = 4.2 mg/dL 2.3-4.7 604) COMPLEMENT COMPONENT [id number] 04:38:00 Test Item Value Reference Range Interpretation Comments C4 COMPLEMENT (BEAKER) (test code = 28 mg/dL 15-57 394) COMPLEMENT COMPONENT [id number] 04:38:00 Test Item Value Reference Range Interpretation Comments C3 COMPLEMENT (BEAKER) (test code = 103 mg/dL 82-193 393) CBC W/PLT COUNT & AUTO [id number] 04:22:00 Test Item Value Reference Range Interpretation [...] PERCENT (BEAKER) (test code = 2801) POCT-GLUCOSE [id number] 21:46:00 Test Item Value Reference Range Interpretation Comments POC-GLUCOSE METER 173 mg/dL 70-110 H TESTED AT [facility] 6720 ([facility]) ([facility] = [facility] 1538) [address] POCT-GLUCOSE [id number] 21:46:00 Test Item Value Reference Range Interpretation Comments POC-GLUCOSE METER 154 mg/dL 70-110 H TESTED AT [facility] 6720 ([facility]) (test code = JULIANO Osborne [facility] 1538) [address] POCT-GLUCOSE [id number] 18:17:00 Test Item Value Reference Range Interpretation Comments POC-GLUCOSE METER 175 mg/dL 70-110 H TESTED AT [facility] 67 ([facility]) (test code = JULIANO Osborne [facility] 1538) [address] RAD, CHEST, 1 VIEW, NON [id number] 14:56:00Reason for exam:->SOBShould this be performed at the bedside?->YesFINAL REPORT INDICATION: SOB COMPARISON: May 13, 2017 TECHNIQUE: Chest radiograph, single view, portable technique. FINDINGS / IMPRESSION: Enlarged heart shadow, small rightpleural effusion, and pulmonary venous congestion, again demonstrated. No pneumothorax or consolidation. Osseous structures unremarkable. Signed: Thania Dwyer Verified Date/Time: 05/14/2017 14:56:58 Reading Location: [facility] Reading Room POCT-GLUCOSE [id number] 12:18:00 Test Item Value Reference Range Interpretation Comments POC-GLUCOSE METER 313 mg/dL 70-110 H TESTED AT [place] [address] ([facility]) (test code = JULIANO Osborne [facility] 1538) [address] HIV-1 ANTIGEN WITH HIV-1/2 [id number] 12:07:00 Test Item Value Reference Range Interpretation Comments HIV-1 ANTIGEN WITH HIV 1\\T\\2 Nonreactive Nonreactive ANTIBODY (2) ([facility]) (test code = 2586) CALCIUM, [id number] 06:37:00 Test Item Value Reference Range Interpretation Comments CALCIUM IONIZED (BEAKER) (test 1.08 mmol/L 1.12-1.27 L code = 698) PH, BLOOD (BEAKER) (test code = 7.25 1810) BASIC METABOLIC [id number] 06:26:00 Test Item Value Reference Range Interpretation [...] pg/mL 0-100 H (test code = 700) [id number] 06:25:00 Test Item Value Reference Range Interpretation Comments PHOSPHORUS (BEAKER) (test code = 5.7 mg/dL 2.3-4.7 H 604) [id number] 06:25:00 Test Item Value Reference Range Interpretation Comments MAGNESIUM (BEAKER) (test code = 1.5 mg/dL 1.6-2.6 L 627) CBC W/PLT COUNT & AUTO [id number] 06:07:00 Test Item Value Reference Range Interpretation [...] PERCENT (BEAKER) (test code = 2801) POCT-GLUCOSE [id number] 22:38:00 Test Item Value Reference Range Interpretation Comments POC-GLUCOSE METER 262 mg/dL 70-110 H TESTED AT [facility] 6720 (BEAKER) (test code = JULIANO Osborne [place] 1538) [address] PROTEIN, RANDOM [id number] 22:18:00 Test Item Value Reference Range Interpretation Comments PROTEIN, URINE (BEAKER) (test code 641 mg/dL 0-14 H = 1569) CREATININE, RANDOM [id number] 22:07:00 Test Item Value Reference Range Interpretation Comments CREATININE URINE (BEAKER) (test 124.9 mg/dL code = 375) Reference Range: No NormalsURINALYSIS W/ [id number] 22:03:00 Test Item Value Reference Range Interpretation [...] 1585) SOURCE(BEAKER) (test code = Urine, Voided 3300) [id number] 19:49:00 Test Item Value Reference Range Interpretation Comments SODIUM (BEAKER) (test 136 meq/L 136-145 code = 381) POTASSIUM (BEAKER) 5.1 meq/L 3.5-5.1 Specimen slightly (test code = 379) hemolyzed CHLORIDE (BEAKER) 104 meq/L 98-107 (test code = 382) CO2 (BEAKER) (test 25 meq/L 22-29 code = 355) Call if K > 5POCT-GLUCOSE [id number] 11:37:00 Test Item Value Reference Range Interpretation Comments POC-GLUCOSE METER 293 mg/dL 70-110 [facility] (test code = JULIANO Osborne [facility] 1538) [address] RAD, CHEST, 1 VIEW, NON [id number] 10:22:00Reason for exam:->SOBShould this be performed at the bedside?->YesFINAL REPORT Chest one view Discussion: There is cardiomegaly and interstitial congestion. A small right-sided effusion is noted. No pneumothorax. IMPRESSIONS: Suspected CHF. Signed: Jeannette Navaeport Verified Date/Time: 05/13/2017 10:22:34 Reading Location: [facility] Radiology Reading Room POCT-GLUCOSE METER 2017-05-13 08:34:00 Test Item Value Reference Range Interpretation Comments POC-GLUCOSE METER 178 mg/dL 70-110 H TESTED AT [place] [address] ([facility]) (test code = JULIANO Osborne [facility] 1538) [address] POCT-GLUCOSE [id number] 06:53:00 Test Item Value Reference Range Interpretation Comments POC-GLUCOSE METER 167 mg/dL 70-110 H TESTED AT [place] [address] ([facility]) (test code = JULIANO Osborne [facility] 1538) [address] [id number] 04:48:00 Test Item Value Reference Range Interpretation Comments BLOOD UREA NITROGEN (BEAKER) (test 36 mg/dL 7-21 H code = 354) [id number] 04:48:00 Test Item Value Reference Range Interpretation Comments SODIUM (BEAKER) (test code = 381) 139 meq/L 136-145 POTASSIUM (BEAKER) (test code = 5.2 meq/L 3.5-5.1 H 379) CHLORIDE (BEAKER) (test code = 382) 109 meq/L 98-107 H CO2 (BEAKER) (test code = 355) 23 meq/L 22-29 [id number] 04:48:00 Test Item Value Reference Range Interpretation [...] WBC 0-0 (BEAKER) (test code = 413) [id number] 23:29:00 Test Item Value Reference Range Interpretation Comments ACTIVATED CLOTTING TIME 136 sec TEST ED AT [place] [address] ([facility]) (test code = JULIANO [place] [facility]) [address] [id number] 20:13:00 Test Item Value Reference Range Interpretation Comments ACTIVATED CLOTTING TIME 175 sec TEST ED AT [place] [address] ([facility]) (test code = JULIANO [place] [facility]) [address] [id number] 18:36:00 Test Item Value Reference Range Interpretation Comments ACTIVATED CLOTTING TIME 202 sec TEST ED AT [place] [address] ([facility]) (test code = JULIANO [place] [facility]) [address] [id number] 18:03:00 Test Item Value Reference Range Interpretation Comments ACTIVATED CLOTTING TIME 208 sec TEST ED AT [facility] 6720 (BEAKER) (test code = JULIANO [place] 441) [address] BASIC METABOLIC [id number] 11:57:00 Test Item Value Reference Range Interpretation [...] NOT APPLICABLE FOR DIALYSIS PATIEN TS. PROTHROMBIN [id number] 11:15:00 Test Item Value Reference Range Interpretation [...] if on CoumadinCBC W/PLT COUNT & AUTO [id number] 11:01:00 Test Item Value Reference Range Interpretation [...] PERCENT (BEAKER) (test code = 2801) POCT-GLUCOSE [id number] 12:35:00 Test Item Value Reference Range Interpretation Comments POC-GLUCOSE METER 249 mg/dL 70-110 H TESTED AT [facility] 6720 (BEAKER) (test code = UJLIANO REYEZ 1538) [address] POCT-GLUCOSE [id number] 09:10:00 Test Item Value Reference Range Interpretation Comments POC-GLUCOSE METER 155 mg/dL 70-110 H TESTED AT [facility] 6720 (BEAKER) (test code = JULIANO Osborne [facility] 1538) [address] BASIC METABOLIC [id number] 05:39:00 Test Item Value Reference Range Interpretation [...] S NOT APPLICABLE FOR DIALYSIS PATIEN TS. [id number] 05:27:00 Test Item Value Reference Range Interpretation Comments PHOSPHORUS (BEAKER) (test code = 5.0 mg/dL 2.3-4.7 H 604) [id number] 05:27:00 Test Item Value Reference Range Interpretation Comments MAGNESIUM (BEAKER) (test code = 1.6 mg/dL 1.6-2.6 627) POCT-GLUCOSE [id number] 05:25:00 Test Item Value Reference Range Interpretation Comments POC-GLUCOSE METER 144 mg/dL 70-110 H TESTED AT [facility] 6720 (BEAKER) (test code = JULIANO Osborne [facility] 1538) [address] PROTHROMBIN [id number] 04:58:00 Test Item Value Reference Range Interpretation Comments PROTIME (BEAKER) (test code = 14.2 seconds 11.7-14.7 759) INR ([facility]) (test code = 370) 1.1 <=5.9 RECOMMENDED COUMADIN/WARFARIN INR THERAPY RANGESSTANDARD DOSE: 2.0 - 3.0 Includes: PROPHYLAXIS forvenous thrombosis, systemic embolization; TREATMENT for venous thrombosis and/or pulmonary embolus.HIGH RISK: Target INR is 2.5-3.5 for patients with mechanical heart valves.POCT-GLUCOSE [id number] 23:55:00 Test Item Value Reference Range Interpretation Comments POC-GLUCOSE METER 86 mg/dL 70-110 TESTED AT [place] [address] ([facility]) (test code = [facility] [address] 1538) B-TYPE NATRIURETIC FACTOR (BNP)2017-04-22 18:13:00 Test Item Value Reference Range Interpretation Comments B-TYPE NATRIURETIC PEPTIDE 1203 pg/mL 0-100 H ([facility]) (test code = 700) POCT-GLUCOSE [id number] 17:36:00 Test Item Value Reference Range Interpretation Comments POC-GLUCOSE METER 259 mg/dL 70-110 H TESTED AT [place] [address] ([facility]) (test code = [facility] 1538) [address] HEMOGLOBIN [id number] 14:24:00 Test Item Value Reference Range Interpretation Comments HEMOGLOBIN A1C ([facility]) (test code = 10.5 % 4.3-6.1 H 368) POCT-GLUCOSE [id number] 12:34:00 Test Item Value Reference Range Interpretation Comments POC-GLUCOSE METER 207 mg/dL 70-110 H TESTED AT [place] [address] ([facility]) (test code = [facility] 1538) [address] [id number] 07:53:00 Test Item Value Reference Range Interpretation Comments PHOSPHORUS (BEAKER) (test code = 3.9 mg/dL 2.3-4.7 604) [id number] 07:53:00 Test Item Value Reference Range Interpretation Comments MAGNESIUM (BEAKER) (test code = 1.6 mg/dL 1.6-2.6 627) BASIC METABOLIC [id number] 07:53:00 Test Item Value Reference Range Interpretation [...] NOT APPLICABLE FOR DIALYSIS PATIEN TS. TROPONIN [id number] 07:29:00 Test Item Value Reference Range Interpretation [...] acidosis, acute neurological disease, and persistent tachyarrhythmia.PROTHROMBIN [id number] 07:01:00 Test Item Value Reference Range Interpretation Comments PROTIME (BEAKER) (test code = 13.8 seconds 11.7-14.7 759) INR (BEAKER) (test code = 370) 1.1 <=5.9 RECOMMENDED COUMADIN/WARFARIN INR THERAPY RANGESSTANDARD DOSE: 2.0 - 3.0 Includes: PROPHYLAXIS forvenous thrombosis, systemic embolization; TREATMENT for venous thrombosis and/or pulmonary embolus.HIGH RISK: Target INR is 2.5-3.5 for patients with mechanical heart valves.POCT-GLUCOSE [id number] 06:28:00 Test Item Value Reference Range Interpretation Comments POC-GLUCOSE METER 198 mg/dL 70-110 H TESTED AT [facility] 6720 (BEAKER) (test code = [facility] 1538) [address] CREATINE KINASE (CK), TOTAL AND [id number] 00:49:00 Test Item Value Reference Range Interpretation Comments CREATINE KINASE TOTAL (ROBERT) 69 U/L 29-200 (test code = 380) CRE[facility]INE KINASE-MB ([facility] (test 4.3 ng/mL 0.0-6.6 code = 750) CREATINE KINASE-MB INDEX ([facility]) 6.2 % (test code = 395) CK-MB Reference Range:<6.7 Normal6.7-10.0 Borderline>10.0 AbnormalTROPONIN [id number] 00:49:00 Test Item Value Reference Range Interpretation [...] acidosis, acute neurological disease, and persistent tachyarrhythmia.POCT-GLUCOSE [id number] 20:44:00 Test Item Value Reference Range Interpretation Comments POC-GLUCOSE METER 269 mg/dL 70-110 H TESTED AT [facility] 6720 (ROBERT) (test code = [facility] 1538) [id number]
[2021-06-11 14:12] LABS: Absolute Lymphocytes (CBC) 1.3 K/uL (0.7-4.9); Hematocrit 29.6 % (36.0-45.0); MPV 7.5 fL (7.6-11.3); RBC Red Blood Cell Count 3.43 M/uL (3.86-4.86)
[2021-06-11 14:22] LABS: AST/SGOT 13 U/L (15-37); Albumin 1.5 g/dL (3.4-5.0); Alkaline Phosphatase 287 U/L (45-117); BUN Blood Urea Nitrogen 43 mg/dL (7-18); Bicarbonate 25 mmol/L (21-32); Bilirubin Total 0.8 mg/dL (0.2-1.0); Glucose Level 108 mg/dL (74-106); Potassium 4.7 mmol/L (3.5-5.1); Sodium Level 132 mmol/L (136-145)
[2021-06-11 14:27] LABS: ALT/SGPT < 6 U/L (12-78)
[2021-06-11 14:53] LABS: SARS-COV-2 RT PCR NEGATIVE (NEGATIVE)
--- NOTE | 2021-06-11 15:06 | RAD REPORT ---
EXAM DESCRIPTION: CT - Head Brain Wo Cont - 06/11/2021 2:38 pm CLINICAL HISTORY: Alteration of awareness/confusion COMPARISON: June 01, 2021 TECHNIQUE: Computed axial tomography of the head was obtained. IV contrast was not requested. All CT scans are performed using dose optimization technique as appropriate and may include automated exposure control or mA/KV adjustment according to patient size. FINDINGS: An intracranial bleed is not seen . The ventricles are normal in caliber. No extra-axial fluid collection is noted. Mild low-density areas within periventricular, deep and subcortical white matter likely represent is chemic changes secondary to small vessel disease. Fluid within the sinuses/ mastoids is not seen. IMPRESSION: No acute intracranial abnormality is seen. If patient's symptoms persist MRI of the bra in would be recommended.
[2021-06-11 15:13] LABS: Urine Blood Negative (Negative); Urine Glucose Negative (Negative); Urine Protein 1+ (Negative); Urine Specific Gravity 1.015 (1.005-1.030)
[2021-06-11 15:27] LABS: Urine Bacteria 20-50 /HPF (<20); Urine Mucus 2+ /HPF (NONE SEEN); Urine RBC <5 /HPF (NONE SEEN)
[2021-06-11] MEDS ORDERED: CEFTRIAXONE 1000 MG/VIAL ONE (16:35)
[2021-06-11 17:35] LABS: White Blood Cell Scan OK (OK)
[2021-06-11 17:36] LABS: Anisocytosis 1+; Blood Morphology Comment NOTED (NOT SEEN); Platelet Estimate DECR; Poikilocytosis 1+
--- NOTE | 2021-06-11 18:30 | ER ---
Nurse's Notes [facility] Name: Christy Priest Age: 66 yrs Sex: Female : 1955 Arrival Date: 06/11/2021 Time: 13:03 Bed 2 Private MD: Diagnosis: Hypoglycemia, unspecified;Altered mental status, unspecified;UTI/ Urinary tract infection, site not specified Presentation: 06/11 12:50 Chief complaint: EMS states: call came in as an altered mental status however patient jg9 was a\\T\\ox 2 to person and event when EMS arrived, patient Bgl on scene 39 mg/dL, 24 g oral glucose given-repeat Bgl was 120 mg/dL. Patient c/o generalized pain 07/08. Patient on hemodialysis Fri, , Fri. Coronavirus screen: Vaccine status: Patient reports being unvaccinated. Ebola Screen: Patient negative for fever greater than or equal to 101.5 degrees Fahrenheit, and additional compatible Ebola Virus Disease symptoms Patient denies exposure to infectious person. Patient denies travel to an Ebola-affected area in the 21 days before illness onset. Initial Sepsis Screen: Does the patient meet any 2 criteria? No. Patient's initial sepsis screen is negative. Does the patient have a suspected source of infection? No. Patient's initial sepsis screen is negative. Risk Assessment: Do you want to hurt yourself or someone else? Patient reports no desire to harm self or others. Onset of symptoms is unknown. 12:50 Method Of Arrival: EMS: [facility] 9 12:50 Acuity: DENNY 3 jg9 Triage Assessment: 12:50 General: Appears in no apparent distress. Behavior is calm, cooperative. Pain: jg9 Complains of pain in right leg and left leg Pain currently is 7 out of 10 on a pain scale. Quality of pain is described as aching, Pain began chronic. EENT: No deficits noted. Neuro: Level of Consciousness is awake, obeys commands, Oriented to person, situation. Cardiovascular: No deficits noted. Respiratory: No deficits noted. GI: No deficits noted. : No deficits noted. Derm: Wound noted head-r forehead and r eye injury from fall previously-bandage in place. Musculoskeletal: Reports pain in right leg and left leg since chronic. Historical: - Allergies: 13:07 Morphine; jg9 13:07 Nitroglycerin; jg9 13:07 tramadol; jg9 13:07 Vancomycin; jg9 - PMHx: 13:07 COPD; diabetes mellitus; Dialysis; Hypertensive disorder; neuropathy; jg9 - PSHx: 13:07 Bipass SX; jg9 - Immunization history:: Client reports having NOT received the Covid vaccine. Pneumococcal vaccine is up to date, Flu vaccine is up to date. - Social history:: Smoking status: Patient reports the use of cigarette tobacco products, denies chronic smoking, but will smoke occasionally. Screenin:11 Abuse screen: Denies threats or abuse. Denies injuries from another. Nutritional jg9 screening: No deficits noted. Tuberculosis screening: No symptoms or risk factors identified. Fall Risk Fall in past 12 months (25 points). Secondary diagnosis (15 points) impaired mobility, IV access (20 points). Mental Status- Overestimates/Forgets Limitations (15 pts.). Assessment: 14:18 Reassessment: No changes from previously documented assessment. jg9 15:13 Reassessment: No changes from previously documented assessment. Pt resting comfortably. ab2 Given warm blankets and jello. Pt denies any needs at this time. 17:57 Reassessment: Patient appears in no apparent distress at this time. Awaiting ab2 disposition. 20:30 Reassessment: attempted to call report to the floor, nurse unavailable. sm5 20:45 Reassessment: attempted to call report to floor, nurse unavailable again. sm5 20:55 Reassessment: attempted to call report to floor for third time, no answer. sm5 21:41 Reassessment:. ke1 21:59 Reassessment: Patient and/or family updated on plan of care and expected duration. Pain sm5 level reassessed. Vital Signs: 12:50 BP 125 / 45; Pulse 68; Resp 19 S; Temp 97.6; Pulse Ox 100% on R/A; Weight 75.75 kg; jg9 Height 5 ft. 7 in. (170.18 cm) (R); Pain 7/10; 13:53 BP 99 / 70; Pulse 100; Resp 18; Pulse Ox 100% on R/A; ab2 14:00 BP 112 / 46; Pulse 67; Resp 26; Pulse Ox 99% on R/A; jg9 14:50 BP 106 / 59; Pulse 67; Resp 10 S; Pulse Ox 100% on R/A; jg9 16:14 BP 115 / 64; Pulse 63; Resp 18; Pulse Ox 98% on R/A; ab2 16:30 BP 129 / 74; Pulse 65; Resp 20 S; Pulse Ox 99% on R/A; jg9 17:57 BP 122 / 40; Pulse 64; Resp 18; Pulse Ox 98% on R/A; ab2 19:50 BP 110 / 48; Pulse 71; Resp 18; Pulse Ox 97% on R/A; sm5 21:00 BP 125 / 60; Pulse 71; Resp 10; Pulse Ox 98% on R/A; sm5 12:50 Body Mass Index 26.16 (75.75 kg, 170.18 cm) jg9 ED Course: 13:03 Patient arrived in ED. ab2 13:03 Mariela Paul, GUILHERME is Primary Nurse. jg9 13:07 Triage completed. jg9 13:11 Arm band placed on right wrist. jg9 13:12 Patient has correct armband on for positive identification. Bed in low position. Call jg9 light in reach. Warm blanket given. 13:13 Quan Hebert NP is PHCP. pm1 13:13 Mika Lopez MD is Attending Physician. pm1 13:45 COVID-19/FLU A+B (Document "Date of Onset" if Symptomatic) Sent. ab2 13:45 glucometer results - FOR PT WITH NO ID Sent. ab2 13:45 Speci-cath kit inserted, using sterile technique, 16 Fr., specimen obtained. returned ab2 cloudy urine. Patient tolerated well. Missed attempt(s): 22 gauge in right antecubital area. 14:18 No apparent distress. Resting quietly. Awaiting lab results, Awaiting radiology results.jg9 14:37 CT Head Brain wo Cont In Process Unspecified. EDMS 15:13 Urine Microscopic Only Sent. ab2 15:13 Urine Microscopic Only Sent. ab2 15:13 No provider procedures requiring assistance completed. ab2 16:46 No apparent distress. Resting quietly. eating. jg9 18:29 Oleksandr Nettles MD is Hospitalizing Provider. pm1 22:00 Patient admitted, IV remains in place. sm5 Administered Medications: 16:35 Drug: Rocephin (cefTRIAXone) 1 grams Route: IM; Site: left deltoid; jg9 Outcome: 18:29 Decision to Hospitalize by Provider. pm1 20:57 Admitted to Med/surg Report called to Attempted to call report. No answer from [facility]nd [facility] floor. 22:00 Condition: stable [facility] 22:00 Instructed on the need for admit. 22:00 Patient left the ED. [facility] Signatures: Dispatcher [employer] EDMS Quan Hebert, RADHA CILNICAL SCIENTIST pm1 Yoon William 5 Cornelia Castillo, RN RN sm5 Mariela Paul RN RN jg9 Huey Diaz Kouassi RN RN ke1
--- NOTE | 2021-06-11 18:30 | EDPHYS ---
Physician Documentation [facility] Name: Christy Priest Age: 66 yrs Sex: Female : 1955 Arrival Date: 06/11/2021 Time: 13:03 Bed 2 Private MD: ED Physician Mika Lopez HPI: 06/11 19:03 This 66 yrs old Female presents to ER via EMS with complaints of Altered Mental Status. pm1 19:03 The patient presents with decreased mental status. Onset: The symptoms/episode pm1 began/occurred today. Possible causes: hypoglycemia. EMS arrival patient with low blood sugar. Patient given glucose orally and symptoms and blood sugar improved. Patient alert and oriented x 3 on ER arrival. Associated signs and symptoms: Pertinent positives: Body aches, Pertinent negatives: chest pain, diarrhea, shortness of breath, vomiting. Current symptoms: In the emergency department the patient's symptoms have improved. Patient's baseline: Neuro: alert and fully oriented, Motor: no deficits. Patient with graft placement to left upper extremity for dialysis last week. 66-year-old dialysis patient brought by EMS due to altered mental status. On EMS arrival patient was found to be hypoglycemic with a glucose of 39. Patient reports poor p.o. intake recently. Patient was given oral glucose and her blood sugar and mental status improved. Patient alert and oriented x3 on ER arrival. Patient's home health nurse also brought to her attention at her right lower leg laceration suture repair is not healing due to her lower extremity edema. Historical: - Allergies: 13:07 Morphine; jg9 13:07 Nitroglycerin; jg9 13:07 tramadol; jg9 13:07 Vancomycin; jg9 - PMHx: 13:07 COPD; diabetes mellitus; Dialysis; Hypertensive disorder; neuropathy; jg9 - PSHx: 13:07 Bipass SX; jg9 - Immunization history:: Client reports having NOT received the Covid vaccine. Pneumococcal vaccine is up to date, Flu vaccine is up to date. - Social history:: Smoking status: Patient reports the use of cigarette tobacco products, denies chronic smoking, but will smoke occasionally. ROS: 19:03 Cardiovascular: Negative for chest pain, palpitations. Positive for lower extremity pm1 swelling that is managed with Pedro wraps and bandaging per home health Respiratory: Negative for shortness of breath, cough, wheezing, and pleuritic chest pain, Abdomen/GI: Negative for abdominal pain, nausea, vomiting, diarrhea, and constipation, Back: Negative for injury and pain, MS/Extremity: Negative for injury and deformity, Skin: Negative for injury, rash, and discoloration. 19:03 Neuro: Negative for headache, weakness, numbness, tingling, and seizure. 19:03 Constitutional: Positive for body aches, poor PO intake, Negative for fever. 19:03 : Positive for Patient still urinates. 19:03 All other systems are negative. Exam: 19:03 Head/Face: Normocephalic, atraumatic. pm1 19:03 Constitutional: The patient appears in no acute distress, alert, awake, comfortable, non-toxic, well developed. 19:03 Chest/axilla: Inspection: No signs of cellulitis or abscess to left clavicular area, Palpation: no acute changes, tenderness, is not appreciated. 19:03 Cardiovascular: Exam negative for acute changes, Rate: normal, Rhythm: regular, Pulses: no pulse deficits are appreciated, Heart sounds: normal. 19:03 Respiratory: Exam negative for acute changes, respiratory distress, shortness of breath. 19:03 Abdomen/GI: Inspection: abdomen appears normal, Palpation: abdomen is soft and non-tender, in all quadrants. 19:03 Musculoskeletal/extremity: 19:03 Skin: Appearance: normal except for affected area, lesion(s), noted, and can be described as 8 cm long by 2 cm wide ulcerated area to right spangler with 6 blue sutures present and do not appear to to be approximating the wound together. Appears to be a skin tear repair. No discharge or erythema present. Negative for abscess.. 19:03 Neuro: Orientation: is normal, to person, place, situation. Vital Signs: 12:50 BP 125 / 45; Pulse 68; Resp 19 S; Temp 97.6; Pulse Ox 100% on R/A; Weight 75.75 kg; jg9 Height 5 ft. 7 in. (170.18 cm) (R); Pain 7/10; 13:53 BP 99 / 70; Pulse 100; Resp 18; Pulse Ox 100% on R/A; ab2 14:00 BP 112 / 46; Pulse 67; Resp 26; Pulse Ox 99% on R/A; jg9 14:50 BP 106 / 59; Pulse 67; Resp 10 S; Pulse Ox 100% on R/A; jg9 16:14 BP 115 / 64; Pulse 63; Resp 18; Pulse Ox 98% on R/A; ab2 16:30 BP 129 / 74; Pulse 65; Resp 20 S; Pulse Ox 99% on R/A; jg9 17:57 BP 122 / 40; Pulse 64; Resp 18; Pulse Ox 98% on R/A; ab2 19:50 BP 110 / 48; Pulse 71; Resp 18; Pulse Ox 97% on R/A; sm5 21:00 BP 125 / 60; Pulse 71; Resp 10; Pulse Ox 98% on R/A; sm5 12:50 Body Mass Index 26.16 (75.75 kg, 170.18 cm) j9 MDM: 13:22 Patient medically screened. pm1 18:27 Data reviewed: vital signs. Data interpreted: Pulse oximetry: on room air is 98 %. pm1 Interpretation: normal. Counseling: I had a detailed discussion with the patient and/or guardian regarding: the historical points, exam findings, and any diagnostic results supporting the discharge/admit diagnosis, lab results, radiology results, the need for further work-up and treatment in the hospital. 06/11 13:05 Order name: glucometer results - FOR PT WITH NO ID 1 06/11 13:05 Order name: Glucose, Ancillary(No Armband) EDAL 06/11 13:23 Order name: CBC with Diff; Complete Time: 17:45 pm1 06/11 13:23 Order name: CMP; Complete Time: 15:08 pm1 06/11 13:25 Order name: COVID-19/FLU A+B (Document "Date of Onset" if Symptomatic); Complete Time: pm1 15:08 06/11 13:54 Order name: Glucose, Ancillary Testing; Complete Time: 13:56 EDMS 06/11 14:26 Order name: CT Head Brain wo Cont; Complete Time: 15:08 pm1 06/11 14:26 Order name: Urine Microscopic Only pm1 06/11 14:27 Order name: Urine Microscopic Only; Complete Time: 16:16 EDMS 06/11 15:13 Order name: Urine Dipstick-Ancillary; Complete Time: 15:23 EDMS 06/11 15:28 Order name: Urine Culture EDAL 06/11 17:35 Order name: CBC Smear Scan; Complete Time: 17:45 EDAL 06/11 18:08 Order name: Procalcitonin; Complete Time: 19:22 [facility] 06/11 18:26 Order name: Blood Culture Adult (2) pm1 06/11 13:23 Order name: EKG; Complete Time: 13:24 pm1 06/11 13:23 Order name: EKG - Nurse/Tech; Complete Time: 13:45 pm1 06/11 13:23 Order name: IV Saline Lock; Complete Time: 19:10 pm1 06/11 13:24 Order name: Diet Renal; Complete Time: 13:25 pm1 06/11 14:26 Order name: Urine Dipstick-Ancillary (obtain specimen); Complete Time: 15:13 pm1 06/11 18:08 Order name: Chest Single View XRAY [facility] 06/11 19:36 Order name: RAD EDAL Administered Medications: 16:35 Drug: Rocephin (cefTRIAXone) 1 grams Route: IM; Site: left deltoid; jg9 Disposition: 19:40 Co-signature as Attending Physician, Mika Lopez MD I agree with the assessment and kdr plan of care. Disposition Summary: 06/11/21 18:29 Hospitalization Ordered Hospitalization Status: Inpatient Admission pm1 Provider: Oleksandr Nettles pm1 Location: Telemetry/[facility] (Inpatient) pm1 Condition: Stable pm1 Problem: new pm1 Symptoms: have improved pm1 Bed/Room Type: Standard 1 Room Assignment: 221(06/11/21 19:55) Diagnosis - Hypoglycemia, unspecified pm1 - Altered mental status, unspecified pm1 - UTI/ Urinary tract infection, site not specified pm1 Forms: - Medication Reconciliation Form pm1 - SBAR form pm1 Signatures: Dispatcher [employer] [facility] Susan Au RN RN mw Rittger, Kevin, MD MD kdr Attema, Lee, FNP-C [employer] AND UNLOADER-Cla1 Quan Hebert, RADHA PRACTICAL NURSING TEACHER pm1 Mariela Paul RN RN jg9 Huey Diaz2 Corrections: (The following items were deleted from the chart) 19:55 18:29 pm1 mw
--- NOTE | 2021-06-11 18:44 | P.HP ---
Certification for Inpatient Patient admitted to: Observation With expected LOS: <2 Midnights Patient will require the following post-hospital care: None Practitioner: I am a practitioner with admitting privileges, knowledge of patient current condition, hospital course, and medical plan of care. Services: Services provided to patient in accordance with Admission requirements found in Title 42 Section 412.3 of the Code of Federal Regulations Patient History Date of Service: 06/11/21 Reason for admission: UTI, hypoglycemia History of Present Illness: 66-year-old female with history of CHF, CAD, diabetes mellitus type 2insulin- dependent, ESRD on HD presents emergency department for hypoglycemia. EMS was called as patient was altered at home on scene her blood sugar was noted to be 39 she was given oral glucose and blood sugar did improve. Patient's mental status has also improved is currently at her baseline. Patient was evaluated in the emergency department her labs were significant for significant leukocytosis also positive for UTI. Patient also with multiple wounds in various stages of healing, does have falls at home. Patient was seen here on June 01 for a fall and sustained a laceration to the right spangler which at the time was repaired with 6 sutures. Wound is without surrounding cellulitis, erythema or purulent drainage at this time, sutures were removed by ED provider. Patient also had vascular surgery with removal of left chest dialysis port and fistula surgery in the recent past. These areas are also without surrounding cellulitis, erythema or purulent drainage. Patient was given Rocephin for UTI, leukocytosis ED provider wishes to admit under observation given patient significant comorbidities and multiple ongoing medical problems both acute and chronic. Patient blood pressure has remained stable throughout her ED stay she has not been febrile or tachycardic does not appear to be septic at this time. Blood cultures were obtained. Will admit for further evaluation and management. Allergies morphine Allergy (Severe, Verified 10/11/20 04:32) Anaphylaxis vancomycin Allergy (Intermediate, Verified 10/11/20 04:32) Shortness of breath basil Allergy (Verified 10/11/20 04:32) Nausea/Vomiting tramadol Allergy (Verified 10/11/20 04:32) Nausea/Vomiting trazodone Allergy (Verified 10/11/20 04:32) Nausea/Vomiting nitroglycerin Adverse Reaction (Mild, Verified 10/11/20 04:32) Nausea/Vomiting Home Medications: Aspirin 81 mg PO DAILY 06/13/20 Clopidogrel Bisulfate [Plavix*] 75 mg PO DAILY 06/13/20 Furosemide [Lasix*] 40 mg PO BID 06/14/20 Gabapentin [Neurontin*] 100 mg PO BID 06/14/20 Sevelamer Carbonate [Renvela*] 2 tab PO TIDWM 12/06/20 Thiamine HCl [Vitamin B-1*] 100 mg PO DAILY #30 tablet 02/26/21 Atorvastatin Calcium [Lipitor] 40 mg OP BEDTIME 03/26/21 Isosorbide Dinitrate 1 tab PO DAILY 03/26/21 Metoprolol Tartrate 25 mg PO BID #60 tablet 03/27/21 - Past Medical/Surgical History Diabetic: Yes -: COPD -: Hypertension -: CAD, CABG x4 vessels (August 2017) -: Diabetes mellitus type 2, insulin-dependent -: Chronic combined systolic/diastolic CHF -: Uterine cancer status post hysterectomy -: TB as a child - Negative 2017 -: Hyperlipidemia -: Iron deficiency anemia -: WEST -: ESRD on HD -: Rectal surgery -: Hysterectomy -: Cholecystectomy -: Gastric surgery -: Appendectomy -: CABG x4 vessel -: RLE Femoral popliteal bypass -: Left great toe amputation Psychosocial/ Personal History: The patient is a . Her son lives with her. She has 3 children. - Family History Brother -: Heart disease, Hypertension, Cancer Notes: Father -: Heart disease, Lung disease, Cancer Notes: - Prostate surgery - Hemorrhage Mother -: GI disease Notes: Sister -: Heart disease Notes: - Respiratory failure - Social History Alcohol use: No CD- Drugs: No Caffeine use: Yes Place of Residence: Home Review of Systems 10-point ROS is otherwise unremarkable General: Weakness, Malaise Physical Examination - Physical Exam General: Alert, In no apparent distress, Oriented x3 HEENT: Atraumatic, PERRLA, Mucous membr. moist/pink, EOMI, Sclerae nonicteric Neck: Supple, 2+ carotid pulse no bruit, No LAD, Without JVD or thyroid abnormality Respiratory: Normal air movement, Diminished Cardiovascular: No edema, Regular rate/rhythm, Normal S1 S2 Capillary refill: <2 Seconds Gastrointestinal: Normal bowel sounds, No tenderness Musculoskeletal: No tenderness Integumentary: Other (Healing laceration noted to right spangler, wounds to left upper arm and left chest with sutures/gaby appear without surrounding cellulitis, erythema, drainage. ) Neurological: Normal gait, Normal speech, Normal strength at 5/5 x4 extr, Normal tone, Normal affect Lymphatics: No axilla or inguinal lymphadenopathy - Studies Laboratory Data (last 24 hrs) 06/11/21 13:51: Sodium 132 L, Potassium 4.7, BUN 43 H, Creatinine 4.81 H, Glucose 108 H, Total Bilirubin 0.8, AST 13 L, ALT < 6 L, Alkaline Phosphatase 287 H 06/11/21 13:51: WBC 22.50 H* D, Hgb 9.5 L, Hct 29.6 L D, Plt Count 119 L D Assessment and Plan - Plan Assessment: Diabetes mellitus type 2insulin-dependent with hypoglycemia Leukocytosis, UTI Chronic systolic/diastolic congestive heart failure ESRD on HD Right spangler wound after fall 06/01/2021 COPD Hypertension Anemia of chronic disease Plan: Diabetes mellitus type 2insulin-dependent with hypoglycemia: Every 6 hours Accu-Chek, mild sliding scale. Blood sugar stable at this time. Patient appears to have relatively poor diet will monitor throughout hospital stay. May need her medications adjusted. Leukocytosis, UTI: 22,000 white count, UTI present, patient also with multiple wounds and history of recent vascular surgery. None of her wounds appear infected there without significant erythema, cellulitis, drainage. Patient covered with Rocephin at this time, blood cultures obtained in the emergency department. Patient does not appear to be septic at this time blood pressure stable not tachycardic or febrile. We will continue to monitor the evening repeat labs in the morning. Chronic systolic/diastolic congestive heart failure: Obtain and continue medications, nephrology consulted for ESRD/volume management. ESRD on HD: Nephrology consulted, patient reports that she had the procedure on her left upper arm fistula recently. Right spangler wound after fall 06/01/2021: Wound team consulted, sutures were removed during stay in the emergency department. COPD: Continue home medications, as needed nebulizer treatments. Hypertension: Continue home medications Anemia of chronic disease: Stable, monitor daily. Transfuse as necessary. DVT PPX: Heparin Code status: Full Discharge Plan: Home Plan to discharge in: 24 Hours - Advance Directives Does patient have a Living Will: No Does patient have a Durable POA for Healthcare: No - Code Status/Comfort Care Code Status Assessed: Yes (Full code) Critical Care: No Time Spent Managing Pts Care (In Minutes): 55
--- NOTE | 2021-06-11 19:35 | RAD REPORT ---
EXAM DESCRIPTION: Butch Single View06/11/2021 6:59 pm CLINICAL HISTORY: Leukocytosis COMPARISON: June 01, 2021 FINDINGS: Small to moderate right pleural effusion with right basilar atelectasis Left lung appears clear. Heart is moderately enlarged. Postsurgical changes involve the chest. Central venous catheter with its tip in the right atrium
[2021-06-11] MEDS: INSULIN -REGULAR HUMAN 50 UNIT/0.5 ML ML SQ SCH (22:27)
[2021-06-11 22:57] VITALS: BMI 21.6
[2021-06-11] MEDS: HEPARIN 5000 UNIT/ML 1 ML VIAL SQ SCH (23:10)
[2021-06-12 04:13] LABS: MPV 7.6 fL (7.6-11.3)
[2021-06-12 04:43] LABS: Absolute Lymphocytes (CBC) 1.2 K/uL (0.7-4.9); Hematocrit 28.6 % (36.0-45.0); Lymphocytes % 6.2 % (15.3-44.8); RBC Red Blood Cell Count 3.27 M/uL (3.86-4.86)
[2021-06-12 05:05] LABS: AST/SGOT 13 U/L (15-37); Albumin 1.5 g/dL (3.4-5.0); Alkaline Phosphatase 312 U/L (45-117); BUN Blood Urea Nitrogen 45 mg/dL (7-18); Bicarbonate 26 mmol/L (21-32); Bilirubin Total 0.7 mg/dL (0.2-1.0); Glucose Level 108 mg/dL (74-106); Potassium 4.8 mmol/L (3.5-5.1); Sodium Level 132 mmol/L (136-145)
[2021-06-12 05:07] LABS: ALT/SGPT < 10 U/L (12-78)
--- NOTE | 2021-06-12 06:33 | P.PN ---
Date of Service: 06/12/21 Subjective: No significant change since admission with some confusion tired, lower extremity pain, no nausea/vomiting ROS: 10 point ROS as noted above, otherwise negative Physical exam GEN: Alert, oriented x2, confused HEENT: Normal conjunctiva, sclera anicteric CV: Regular rate and rhythm, b/l lower extremity edema Pulm: Nonlabored respirations, diminished at bases bilaterally ABD: Soft, nontender, nondistended Integumentary: LLE: erythema, purulent drainage of pretibial area Neuro: moves extremities Problem List Sepsis secondary to LLE abscess, without severe sepsis/septic shock UTI Diabetes mellitus type 2insulin-dependent with hypoglycemia Chronic systolic/diastolic congestive heart failure ESRD on HD Right spangler wound after fall 06/01/2021 COPD Hypertension Anemia of chronic disease Patient lives large abscess in left lower extremity, likely the cause of her elevated inflammatory markers Patient with likely UTI as well, history of multidrug-resistant bacteria Infectious disease consulted General surgery consulted as well, patient may need formal I&D, purulent drainage expressed at bedside manually CT of the left lower extremity ordered for further evaluation N.p.o. after midnight for possible procedure Continue broad-spectrum antibiotics Confirm shows restart home medications Nephrology consulted, for dialysis today VTE: Heparin Code: Full Dispo: Home, 3-4 days Time Spent Managing Pts Care (In Minutes): 35
[2021-06-12] MEDS: INSULIN -REGULAR HUMAN 50 UNIT/0.5 ML ML SQ SCH ×4 (07:30→20:28)
[2021-06-12] MEDS ORDERED: PNEUMOCOCCAL VACCINE 0.5 ML IMVAC ONE (08:00)
[2021-06-12] MEDS ORDERED: Levofloxacin 750mg IV 750 MG/150 ML BAG IV ONE (08:00)
[2021-06-12] MEDS: HYDROCODONE/APAP 5/325 MG TAB PO PRN ×3 (08:50→21:00)
[2021-06-12] MEDS: CLOPIDOGREL 75 MG TABLET PO SCH (08:51)
[2021-06-12] MEDS: FLUTICASONE 110 MCG/PUFF 12 GM INH IH SCH ×2 (08:51→20:39)
[2021-06-12] MEDS: HEPARIN 5000 UNIT/ML 1 ML VIAL SQ SCH ×2 (08:51→20:39)
[2021-06-12] MEDS: ASPIRIN 81 MG CHEWABLE TABLET PO SCH (08:51)
[2021-06-12] MEDS ORDERED: CEFTRIAXONE 1,000 MG in NA CHLORIDE 0.9% 50 ML IVPB SCH (09:00)
[2021-06-12] MEDS ORDERED: DOXYCYCLINE 100 MG CAP PO SCH (09:00)
--- NOTE | 2021-06-12 13:11 | P.CNS ---
Date of Consult: 06/12/21 Chief Complaint: UTI, hypoglycemia History of Present Illness: Patient diabetes type 2, and ESRD on HD who presented to the emergency department secondary to hypoglycemia. Per chart review EMS was called due to the patient being altered with blood glucose levels in the 30s. In ED labs are significant for leukocytosis and UA suggestive of UTI. Urine culture growing gram-negative rods. Blood culture pending. Patient was seen in the ED at this facility on June 01 secondary to a fall and sustained a laceration to her arm and forehead. Patient still has sutures/gaby present to forehead as well as to left AV graft site. Patient noted to have several wounds to bilateral upper and lower extremities. Left lower extremity wound with copious purulent drainage. CT left tib-fib pending, surgery consult also pending. Patient Peraglie placed on Levaquin and Bactrim, Levaquin discontinued continue monotherapy with Bactrim. Patient currently reports generalized pain and pain to wounds. She denies shortness of breath, nausea/vomiting/diarrhea, or chest pain. Allergies morphine Allergy (Severe, Verified 10/11/20 04:32) Anaphylaxis vancomycin Allergy (Intermediate, Verified 10/11/20 04:32) Shortness of breath basil Allergy (Verified 10/11/20 04:32) Nausea/Vomiting tramadol Allergy (Verified 10/11/20 04:32) Nausea/Vomiting trazodone Allergy (Verified 10/11/20 04:32) Nausea/Vomiting nitroglycerin Adverse Reaction (Mild, Verified 10/11/20 04:32) Nausea/Vomiting Home Medications: Aspirin 81 mg PO DAILY 06/13/20 Clopidogrel Bisulfate [Plavix*] 75 mg PO DAILY 06/13/20 Furosemide [Lasix*] 40 mg PO BID 06/14/20 Gabapentin [Neurontin*] 100 mg PO BID 06/14/20 Sevelamer Carbonate [Renvela*] 2 tab PO TIDWM 12/06/20 Atorvastatin Calcium [Lipitor] 40 mg OP BEDTIME 03/26/21 Isosorbide Dinitrate 2 tab PO DAILY 03/26/21 Metoprolol Tartrate 25 mg PO BID #60 tablet 03/27/21 Allopurinol 100 mg PO BID 06/12/21 Budesonide [Budesonide Dr] 3 mg NEB BID 06/12/21 Bumetanide 2 mg PO ONCE 06/12/21 Dicyclomine [Bentyl*] 10 mg PO Q6H 06/12/21 Epoetin Delfino [Procrit] 10,000 unit IM M,W,F 06/12/21 Ferrous Sulfate 325 mg PO ONCE 06/12/21 Fluticasone [Flovent Hfa 110*] 2 puff IN BID 06/12/21 Hydralazine [Apresoline*] 25 mg PO TID 06/12/21 - Past Medical/Surgical History Diabetic: Yes -: COPD -: Hypertension -: CAD, CABG x4 vessels (August 2017) -: Diabetes mellitus type 2, insulin-dependent -: Chronic combined systolic/diastolic CHF -: Uterine cancer status post hysterectomy -: TB as a child - 2017 -: Hyperlipidemia -: Iron deficiency anemia -: [place] -: ESRD on HD -: Rectal surgery -: Hysterectomy -: Cholecystectomy -: Gastric surgery -: Appendectomy -: CABG x4 vessel -: RLE Femoral popliteal bypass -: Left great toe amputation Psychosocial/ Personal History: The patient is a . Her son lives with her. She has 3 children. - Family History Brother Medical History: Heart disease, Hypertension, Cancer Notes: Father Medical History: Heart disease, Lung disease, Cancer Notes: - Prostate surgery - Hemorrhage Mother Medical History: GI disease Notes: Sister Medical History: Heart disease Notes: - Respiratory failure - Social History Smoking Status: Current some day smoker Alcohol use: No CD- Drugs: No Caffeine use: Yes Place of Residence: Home Review of Systems 10-point ROS is otherwise unremarkable Physical Examination Temp Pulse Resp BP Pulse Ox 96.9 F 82 16 142/58 H 92 06/12/21 08:00 06/12/21 08:00 06/12/21 08:00 06/12/21 08:00 06/12/21 08:00 General: Other (Altered mental status ) HEENT: Other (Laceration with sutures to left side of forehead.) Neck: Supple, 2+ carotid pulse no bruit Respiratory: Clear to auscultation bilaterally, Normal air movement Integumentary: Other (Bilateral knee/spangler wounds. Unclear origin of wounds, likely traumatic. Left anterior spangler wound with copious purulent drainage and periwound tissue erythema) Laboratory Data (last 24 hrs) 06/12/21 03:56: Sodium 132 L, Potassium 4.8, BUN 45 H, Creatinine 5.21 H*, Glucose 108 H, Total Bilirubin 0.7, AST 13 L, ALT < 10 L, Alkaline Phosphatase 312 H 06/12/21 03:56: WBC 20.10 H*, Hgb 9.2 L, Hct 28.6 L, Plt Count 119 L 06/11/21 13:51: Sodium 132 L, Potassium 4.7, BUN 43 H, Creatinine 4.81 H, Glucose 108 H, Total Bilirubin 0.8, AST 13 L, ALT < 6 L, Alkaline Phosphatase 287 H 06/11/21 13:51: WBC 22.50 H* D, Hgb 9.5 L, Hct 29.6 L D, Plt Count 119 L D Conclusions/Impression: Antibiotics: Bactrim: 06/12current Assessment/plan UTI Urine culture growing GNR, awaiting speciation/susceptibility. Continue Bactrim at this time. -Recommend obtaining CT abdomen pelvis due to patient's history of recurrent urinary tract infections Left anterior spangler abscess -Wound noted to anterior spangler with copious purulent drainage. Surrounding tissue is boggy and erythematous. -Wound culture pending CT tib-fib pending -Continue oral Bactrim Surgery consult pending Wound care: Clean with saline, packed with iodoform, and cover with Mepitel Leukocytosis -Continue to trend Bilateral knee traumatic wounds Wound care to left knee: Clean with saline, apply Xeroform, and cover with Mepitel -Wound care to right knee: Clean with saline, apply Medihoney, and cover with Mepitel Right anterior spangler wound -Wound care: Clean with saline, apply Medihoney, cover with Mepitel ESRD on HD Patient noncompliant, nephrology following Medical management per primary team Plan of care discussed with Dr. Gaytan Thank you for consultation
--- NOTE | 2021-06-12 17:28 | RAD REPORT ---
EXAM DESCRIPTION: CT - Tib Fib Left W Con - 06/12/2021 5:13 pm CLINICAL HISTORY: abscess to left anterior spangler Pain and swelling, abscess COMPARISON: No comparisons FINDINGS: Significant edema and soft tissue swelling is present involving the leg. [place] subcutaneo us fluid collection is seen in the pretibial soft tissues containing small air bubbles. This collecti on is approximately 15 cm in length 2 cm and anterior posterior dimension and 5 cm in transverse dime nsion. It appears position in the pretibial soft tissues lateral to the tibial cortex. No underlying osteomyelitis. In the soft tissues of the posterior and medial calf there is additional evidence of soft tissue flui d collections presents which are somewhat amorphous. IMPRESSION: Subcutaneous fluid collection containing air bubbles as detailed above a anterior soft t issues of the tibia likely subcutaneous abscess. No osteomyelitis seen. Additional areas of soft tissue fluid and edema and possible abscess formation seen in the soft tissu es and musculature of the posterior calf as well. These collections are somewhat less well defined.
[2021-06-12] MEDS: SMZ./TMP. 800/160 MG TABLET PO SCH (20:37)
[2021-06-12] MEDS: ATORVASTATIN 40 MG TAB PO SCH (20:41)
[2021-06-13] MEDS: SMZ./TMP. 800/160 MG TABLET PO SCH ×2 (00:16→23:16)
[2021-06-13 05:35] LABS: Absolute Lymphocytes (CBC) 1.5 K/uL (0.7-4.9); Hematocrit 28.4 % (36.0-45.0); Lymphocytes % 11.3 % (15.3-44.8); MPV 7.6 fL (7.6-11.3); RBC Red Blood Cell Count 3.24 M/uL (3.86-4.86)
[2021-06-13] MEDS: INSULIN -REGULAR HUMAN 50 UNIT/0.5 ML ML SQ SCH ×4 (06:00→18:00)
--- NOTE | 2021-06-13 06:19 | P.PN ---
Date of Service: 06/13/21 Subjective: Feels very weak/tired, states she has been feeling confused as well Pain in lower extremities Purulent drainage expressed from left leg yesterday ROS: 10 point ROS as noted above, otherwise negative Physical exam GEN: Alert, oriented x2, mild confusion HEENT: Normal conjunctiva, sclera anicteric CV: Regular rate and rhythm, b/l lower extremity edema Pulm: Non-labored respirations, diminished at bases bilaterally ABD: Soft, nontender, nondistended Integumentary: LLE: erythema, purulent drainage of pretibial area, R leg wound/laceration, few scattered superficial abrasions Neuro: moves extremities, generalized weakness Problem List Sepsis secondary to LLE abscess and UTI, without severe sepsis/septic shock UTI, ESBL e. coli Diabetes mellitus type 2insulin-dependent with hypoglycemia Chronic systolic/diastolic congestive heart failure ESRD on HD Right spangler wound after fall 06/01/2021 COPD Hypertension Anemia of chronic disease Patient with large abscess in left lower extremity, likely the cause of her elevated inflammatory markers Patient with UTI as well, history of multidrug-resistant bacteria; prelim growing ESBL levaquin changed to merrem Infectious disease consulted possibly had hematoma that became infected CT of the left lower extremity large fluid collection General surgery consulted as well, I&D to be done today, NPO for now Confirm and restart home medications as appropriate Nephrology consulted, for dialysis today VTE: Heparin Code: Full Dispo: may need LTACH vs SNF, pending further findings / I&D, 3-4 days Time Spent Managing Pts Care (In Minutes): 35
[2021-06-13 06:29] LABS: AST/SGOT 16 U/L (15-37); Albumin 1.4 g/dL (3.4-5.0); Alkaline Phosphatase 273 U/L (45-117); BUN Blood Urea Nitrogen 50 mg/dL (7-18); Bicarbonate 25 mmol/L (21-32); Bilirubin Total 0.7 mg/dL (0.2-1.0); Glucose Level 90 mg/dL (74-106); Potassium 4.9 mmol/L (3.5-5.1); Sodium Level 130 mmol/L (136-145)
[2021-06-13 06:30] LABS: ALT/SGPT < 10 U/L (12-78)
--- NOTE | 2021-06-13 07:28 | EKG ---
Test Date: 2021-06-11 Test Time: 13:31:28 Director Of Infection Control: MEASUREMENT RESULTS: Intervals: Rate: 111 [place]: QRSD: 110 QT: 428 QTc: 582 [place]: P: [place]: QRS: 138 T: 105 INTERPRETIVE STATEMENTS: Atrial fibrillation with rapid ventricular response with a competing junctional pacemaker with premature ventricular or aberran Incomplete right bundle branch block Possible Right ventricular hypertrophy Septal infarct, age undetermined Abnormal ECG Compared to ECG 06/01/2021 05:20:30 Right bundle-branch block no longer present Left posterior fascicular block no longer present Bifascicular block no longer present T-wave abnormality no longer present Possible ischemia no longer present Myocardial infarct finding still present Electronically Signed On 06-13-21 07:23:00 CDT by Taj Raymond
--- NOTE | 2021-06-13 07:28 | EKG ---
Test Date: 2021-06-11 Test Time: 13:33:34 Pattern Puncher: MEASUREMENT RESULTS: Intervals: Rate: 68 [place]: 194 QRSD: 130 QT: 432 QTc: 459 [place]: P: 65 [place]: 194 QRS: 133 T: 67 INTERPRETIVE STATEMENTS: Normal sinus rhythm Right bundle branch block Left posterior fascicular block Bifascicular block Possible Anterior infarct, age undetermined Abnormal ECG Compared to ECG 06/11/2021 13:31:28 Right bundle-branch block now present Left posterior fascicular block now present Bifascicular block now present Atrial fibrillation no longer present Ventricular premature complex(es) no longer present Incomplete right bundle-branch block no longer present Myocardial infarct finding still present Electronically Signed On 06-13-21 07:22:36 CDT by Taj Raymond
--- NOTE | 2021-06-13 07:46 | CON ---
Date of Consultation: 06/12/2021 Chief Complaint: End-stage renal disease, on hemodialysis. History Of Present Illness: Patient presented to the hospital because of generalized weakness, status post fall. She also has some hypoglycemia and urinary tract infection. She is a 66-year-old woman with history of congestive heart failure; coronary artery disease; diabetes mellitus type 2, insulin dependent; end-stage renal disease, on hemodialysis; history of noncompliance. EMS was called when patient developed altered mental status and confusion, cognitive decline. The patient was found to have hypoglycemia with blood glucose of 39. She was given oral glucose and glucose did not improve it and the patient was brought to the emergency room and started on IV dextrose. Patient was found to have urinary tract infection. Urinalysis was immediately done and showed leukocyturia. Patient on June 01 fell and sustained laceration to the right spangler, which at that time was repaired with whip stitch suture. Patient has history of noncompliance. Review of Systems: General: The patient denies fevers or chills. Eyes: Denies vision changes. Ears, Nose and Throat: Denies sore throat or earache. Respiratory: She has some dyspnea on exertion. Denies PND or orthopnea. : Denies dysuria or hematuria. Past Medical History: COPD, end-stage renal disease, diabetes mellitus with renal manifestation, coronary artery disease, CABG, hypertension, uterine cancer status post hysterectomy, chronic combined systolic and diastolic congestive heart failure, hyperlipidemia, obstructive sleep apnea, iron deficiency, rectal surgery, hysterectomy, cholecystectomy, appendectomy, CABG, right femoropopliteal bypass, left great toe amputation. Family History: Brother; heart disease, hypertension, cancer. Social History: Denies drug or alcohol. Physical Examination: General: Patient is awake, alert, follows commands. Eyes: Anicteric sclerae. Skin: There are some bruises on the face and neck and extremities. Warm and dry. Neck: Supple. No JVD. No bruits. Cardiovascular: S1, S2. Regular rate. Abdomen: Soft, benign. Extremities: Bruises present. Neurological: Moving extremities and cranial nerves intact. Laboratory Data: Lab Work: Potassium 4.7, BUN 46, creatinine 4.1, glucose 108, AST 13, ALT less than 6. WBC 22.5, hemoglobin 9.5, hematocrit 29.9, platelet count [id number]. Impression And Plan: 1. Diabetes mellitus with renal manifestation. 2. End-stage renal disease. The patient will continue dialysis. Patient refused dialysis today and it is scheduled for tomorrow. 3. Leukocytosis. White count [id number]. The patient will have broad-spectrum antibiotics and patient may be having a urinary tract infection with sepsis. Chronic systolic and diastolic dysfunction. Dialysis will be done for metabolic clearance and to obtain negative fluid balance, avoid high sodium intake. 4. Chronic obstructive pulmonary disease. Continue nebulizers. 5. Anemia in chronic kidney disease. Monitor hemoglobin level and adjust BRONWYN according to lab result. JONNY/CELESTINE Voice ID: [id number] Report ID: [id number] AZUECNA
[2021-06-13] MEDS: HEPARIN 5000 UNIT/ML 1 ML VIAL SQ SCH ×2 (09:00→23:17)
[2021-06-13] MEDS: CLOPIDOGREL 75 MG TABLET PO SCH (09:00)
[2021-06-13] MEDS: FLUTICASONE 110 MCG/PUFF 12 GM INH IH SCH ×2 (09:00→21:00)
[2021-06-13] MEDS: ASPIRIN 81 MG CHEWABLE TABLET PO SCH (09:00)
[2021-06-13] MEDS: Meropenem 500 MG in NA CHLORIDE 0.9% 100 ML IV SCH ×2 (09:19→23:16)
[2021-06-13] MEDS: MEDIHONEY 44 ML TOPICAL TUBE TOP SCH (09:19)
[2021-06-13] MEDS ORDERED: NA CHLORIDE 0.9% 500 ML ONE (09:35)
[2021-06-13] MEDS ORDERED: ALBUTEROL 2.5 MG/3 ML NEB SOL ONE (09:55)
[2021-06-13] MEDS ORDERED: FENTANYL CITR 100 MCG/2 ML ONE (10:25)
[2021-06-13] MEDS ORDERED: propofoL 200 MG/20 ML VIAL IV ONE (10:25)
[2021-06-13] MEDS ORDERED: ONDANSETRON 4 MG/2 ML VIAL ONE (10:26)
[2021-06-13] MEDS ORDERED: LIDOCAINE 2% MPF 5 ML VIAL ONE (10:26)
--- NOTE | 2021-06-13 11:08 | P.BOP ---
Preoperative diagnosis: necrotic infected wound left leg with abscess, venous stasis disease Postoperative diagnosis: same Primary procedure: EXcisional debridement necrotic infected wound left leg 15 x 12 x 1cm Secondary procedure: with abscess drainage Estimated blood loss: <10cc Specimen: necrotic tissue ans culture Findings: necrotic infected wound left leg with abscess and hematoma Anesthesia: MAC Complications: None Drain(s): Other Transferred to: Recovery Room Condition: Good
[2021-06-13] MEDS ORDERED: D10W 250 ML IV ONE (11:31)
[2021-06-13] MEDS ORDERED: MORPHINE 4 MG/ML SYR ONE (11:49)
[2021-06-13] MEDS: FENTANYL CITR 100 MCG/2 ML ONE ×2 (11:51→12:00)
[2021-06-13] MEDS ORDERED: D50W 25 GM/50 ML SYRINGE IV PRN (12:56)
[2021-06-13] MEDS ORDERED: GLUCAGON 1 MG/VIAL IM PRN (12:56)
[2021-06-13] MEDS ORDERED: D10W 125 ML IV SCH (13:00)
--- NOTE | 2021-06-13 15:46 | CON ---
Date of Consultation: 06/13/2021 Reason For Consult: Left lower extremity open necrotic wound with abscess. History Of Present Illness: This is a case of a 66-year-old patient with multiple medical history in cluding congestive heart failure, coronary artery disease, diabetes, admitted to the hospital with hy poglycemia, found to have a necrotic wound of the left leg with purulent discharge coming from it. [place] apparently has had some falls in the past, had some stitches placed at multiple places. The e tiology of that left leg wound is unknown. She has some knee bruises too. She was found to have by primary doctor and Infectious Disease purulent discharge from the leg and did request debridement and incision and drainage of an abscess. Patient cannot give too much information about that trauma. S he does not have good recollection of other details. Allergies: MORPHINE, VANCOMYCIN, TRAMADOL, NITROGLYCERIN. Past Medical History: Includes COPD, hypertension, CAD, diabetes, hyperlipidemia, anemia. Past Surgical History: Include appendectomy, gastric surgery, cholecystectomy, hysterectomy, right f emoral-popliteal bypass, left great toe amputation. Family History: Includes heart disease, hypertension. Social History: She does not smoke. She drinks caffeine occasionally. She does not drink alcohol. Review of Systems: See H and P. 10 points otherwise unremarkable. Patient is awake and alert. Physical Examination: General: Patient is awake, in no distress. HEENT: Pupils anicteric. Neck: Supple. Chest: Clear. Abdomen: Soft and depressible. Integumentary: Patient has multiple abrasions over the body, but on the left leg, patient has an ope n and necrotic area with active purulent discharge coming from the region. There is cellulitis prese nt. There is probably a hematoma component to that lesion. This is going to be examined under anest hesia a little deeper. Decreased peripheral pulses bilaterally. Laboratory Data: Blood work shows WBC count coming from 22 to 13 with platelets of 109, hemoglobin o f 9. Sodium is 130, creatinine is 5.34. Lower extremity CT done yesterday, subcutaneous fluid colle ction with air bubbles in the anterior soft tissue of the tibia. Assessment: Necrotic wound, cellulitis, and abscess of the left leg. Plan: The plan will be incision and drainage with debridement of necrotic wound of the left anterior leg under anesthesia with benefits, alternatives, and risks including, but not limited to infection, bleeding, damage to adjacent structures, nonhealing wound, anesthesia complication, NC, and even valentino th. She also understands this may not relieve any symptoms. She will require wound care in the futu re. She signed consent. The case was immediately booked in OR. JOEL/CELESTINE Voice ID: [id number] Report ID: [id number]
--- NOTE | 2021-06-13 16:07 | OP ---
Date of Procedure: 06/13/2021 Surgeon: Mukesh Meadows MD Preoperative Diagnoses: Necrotic infected wound of left leg with abscess, venous stasis disease, end -stage renal disease, cardiac disease. Postoperative Diagnoses: Necrotic infected wound of left leg with abscess, venous stasis disease, en d-stage renal disease, cardiac disease. Procedure: Excisional debridement of necrotic infected wound of left leg, 15 x 12 x 1 cm with absces s drainage. Estimated Blood Loss: Less than 10 mL. Specimen: Necrotic tissue and culture. Findings: The patient has necrotic skin, necrotic subcutaneous tissue, infected wound with hematoma and abscess. Anesthesia: MAC plus local. Indication: This is the case of a 66-year-old patient, comes to us with a necrotic wound with purule nt discharge. Benefits, alternatives, and risks of excision and debridement were fully explained, wh ich include, but not limited to infection, bleeding, damage to adjacent structures, anesthesia compli cation, nonhealing wound, NV, and even . She also understands this may not relieve any symptoms . She might need more than one surgical intervention. She understood, signed a consent. Procedure In Detail: The patient was brought to the operating room, placed in supine position. Anes thesia was done without complication. Left leg was prepped and draped in the usual sterile fashion. Local anesthesia was applied followed by sharp incision of the necrotic skin, necrotic fat. On that area, we noticed some loculations and some cavities that have to be addressed. When we have all bisi t cleaned and hemostasis was obtained, we irrigated the area. Before that, we obtained some cultures . The patient tolerated the procedure well. The area was covered with wet-to-dry dressing and the p atient sent to recovery in stable condition. Sponge count and instrument counts correct. The patien t tolerated the procedure well. The patient was sent to recovery in stable condition. JOEL/CELESTINE Voice ID: [id number] Report ID: [id number]
[2021-06-13] MEDS: D10W 125 ML IV SCH (18:43)
[2021-06-13] MEDS: HYDROCODONE/APAP 5/325 MG TAB PO PRN (18:51)
[2021-06-13] MEDS: DIPHENHYDRAMINE 25 MG TAB/CAP PO PRN (23:17)
[2021-06-13] MEDS: ATORVASTATIN 40 MG TAB PO SCH (23:17)
[2021-06-14] MEDS: HYDROCODONE/APAP 5/325 MG TAB PO PRN ×3 (00:32→16:27)
--- NOTE | 2021-06-14 03:28 | PN ---
Chief Complaint: End-stage renal disease, on hemodialysis. Patient presented to the hospital because of generalized weakness, status post falls, she was found to have hypoglycemia and urinary tract infections. She has history of diabetes mellitus type 2, insulin dependent, congestive heart failure, systolic and diastolic dysfunction, coronary artery disease, history of noncompliance. EMS was called when patient developed altered mental status, was confused, and had weakness and lightheadedness. Patient received IV dextrose for severe hypoglycemia . Leukocytosis, the patient was started on antibiotics for sepsis and urinary tract infection. Review of Systems: Patient is feeling better. Physical Examination: Lungs: Clear to auscultation bilaterally. Heart: S1, S2. Abdomen: Soft. Benign. Extremities: Dressing in place. Impression/plan: 1. Diabetes mellitus with renal manifestation, on dialysis. 2. End-stage renal disease due to diabetic kidney disease. Continue dialysis. Patient agreed to have dialysis today with ultrafiltration. Patient is tolerating treatment, ultrafiltration goal was adjusted to prevent intradialytic hypotension. 3. Leukocytosis. Patient is on broad-spectrum antibiotics for urinary tract infection and sepsis. Patient has lower extremity nonhealing wound. She has procedure done today for debridement. 4. Chronic obstructive pulmonary disease. Continue nebulizer. 5. Anemia due to chronic kidney disease. Monitor hemoglobin level. Adjust BRONWYN. 6. Congestive heart failure, fluid overload. Continue low-sodium diet. Monitor blood pressure. Continue beta-gina for congestive heart failure. Patient was evaluated by surgical team today. She underwent debridement of necrotic infected wound of the left leg with abscess drainage. She had necrotic, clean issue, necrotic subcutaneous tissue, infected wound with hematoma and abscess. She will continue wound care and antibiotics. Blood cultures are pending. JONNY/CELESTINE Voice ID: [id number] Report ID: [id number] AZUCENA
[2021-06-14 04:22] LABS: Absolute Lymphocytes (CBC) 1.1 K/uL (0.7-4.9); Lymphocytes % 11.9 % (15.3-44.8); MPV 7.5 fL (7.6-11.3)
[2021-06-14] MEDS: INSULIN -REGULAR HUMAN 50 UNIT/0.5 ML ML SQ SCH ×4 (06:00→18:00)
--- NOTE | 2021-06-14 06:13 | P.PN ---
Date of Service: 06/14/21 Subjective: Feels slightly better today, continues with bilateral leg pain Still feels a little bit confused, very tired and weak ROS: 10 point ROS as noted above, otherwise negative Physical exam GEN: Alert, oriented x2, mild confusion HEENT: Normal conjunctiva, sclera anicteric CV: Regular rate and rhythm, trace b/l lower extremity edema Pulm: Non-labored respirations, diminished at bases bilaterally ABD: Soft, nontender, nondistended Integumentary: b/l LLE with dressings in place, c/d/i Neuro: moves extremities, generalized weakness Problem List Sepsis secondary to LLE abscess and UTI, without severe sepsis/septic shock UTI, ESBL e. coli Diabetes mellitus type 2insulin-dependent with hypoglycemia Chronic systolic/diastolic congestive heart failure ESRD on HD Right spangler wound after fall 06/01/2021 COPD Hypertension Anemia of chronic disease Patient with large abscess in left lower extremity, likely the cause of her elevated inflammatory markers CT of the left lower extremity large fluid collection Patient with UTI as well Urine with ESBL. Abscess culture with gram-negative rods, likely ESBL Continue meropenem Infectious disease consulted, possibly can be transitioned to p.o. Bactrim s/p I&D of LLE abscess on 06/13 Nephrology following VTE: Heparin Code: Full Dispo: may need LTACH vs SNF, pending further findings / I&D, 3-4 days Patient's not wanting to go anywhere but home at this time Time Spent Managing Pts Care (In Minutes): 35
[2021-06-14 06:21] LABS: AST/SGOT 14 U/L (15-37); Albumin 1.2 g/dL (3.4-5.0); Alkaline Phosphatase 244 U/L (45-117); BUN Blood Urea Nitrogen 24 mg/dL (7-18); Bicarbonate 30 mmol/L (21-32); Bilirubin Total 0.5 mg/dL (0.2-1.0); Glucose Level 127 mg/dL (74-106); Potassium 3.8 mmol/L (3.5-5.1); Protein, Total 4.2 g/dL (6.4-8.2); Sodium Level 136 mmol/L (136-145)
[2021-06-14 06:22] LABS: ALT/SGPT < 6 U/L (12-78)
[2021-06-14] MEDS ORDERED: NA CHLORIDE 0.9% 100 ML ONE (07:44)
[2021-06-14 07:59] LABS: Magnesium 1.7 mg/dL (1.8-2.4)
[2021-06-14] MEDS ORDERED: FOLBIC 1 TAB PO SCH (09:00)
[2021-06-14] MEDS: FLUTICASONE 110 MCG/PUFF 12 GM INH IH SCH ×2 (09:00→21:00)
[2021-06-14] MEDS ORDERED: Levofloxacin500mg IV 500 MG/100 ML BAG IV SCH (09:00)
[2021-06-14] MEDS: ASPIRIN 81 MG CHEWABLE TABLET PO SCH (10:07)
[2021-06-14] MEDS: CLOPIDOGREL 75 MG TABLET PO SCH (10:07)
[2021-06-14] MEDS: HEPARIN 5000 UNIT/ML 1 ML VIAL SQ SCH ×2 (10:07→21:09)
[2021-06-14] MEDS: Meropenem 500 MG in NA CHLORIDE 0.9% 100 ML IV SCH ×2 (10:12→21:09)
[2021-06-14] MEDS: MEDIHONEY 44 ML TOPICAL TUBE TOP SCH (10:13)
[2021-06-14] MEDS ORDERED: FOLBEE PO ONE (10:15)
--- NOTE | 2021-06-14 11:53 | P.PN ---
Subjective Date of Service: 06/14/21 Chief Complaint: UTI, hypoglycemia Patient seen and examined status post left anterior spangler abscess I&D performed by Dr. Meadows. Patient tolerated surgery well. Review of Systems 10-point ROS is otherwise unremarkable Physical Examination - Vital Signs Temperature: 97.7 F Blood Pressure: 117/56 Pulse: 67 Respirations: 14 Pulse Ox (%): 94 - Studies Laboratory Last Values WBC 20.10 K/uL (4.3-10.9) H* 06/12/21 03:56 RBC 3.27 M/uL (3.86-4.86) L 06/12/21 03:56 Hgb 9.2 g/dL (12.0-15.0) L 06/12/21 03:56 Hct 28.6 % (36.0-45.0) L 06/12/21 03:56 MCV 87.4 fL (80-100) 06/12/21 03:56 MCH 28.1 pg (27.0-35.0) 06/12/21 03:56 MCHC 32.1 g/dL (32.0-36.0) 06/12/21 03:56 RDW 17.3 % (12.1-15.2) H 06/12/21 03:56 Plt Count 119 K/uL (152-406) L 06/12/21 03:56 MPV 7.6 fL (7.6-11.3) 06/12/21 03:56 Neutrophils % 91.1 % (41.7-73.7) H 06/12/21 03:56 Lymphocytes % 6.2 % (15.3-44.8) L 06/12/21 03:56 Monocytes % 2.5 % (3.3-12.3) L 06/12/21 03:56 Eosinophils % 0.1 % (0-4.4) 06/12/21 03:56 Basophils % 0.1 % (0-1.3) 06/12/21 03:56 Absolute Neutrophils 18.3 K/uL (1.8-8.0) H 06/12/21 03:56 Absolute Lymphocytes 1.2 K/uL (0.7-4.9) 06/12/21 03:56 Absolute Monocytes 0.5 K/uL (0.1-1.3) 06/12/21 03:56 Absolute Eosinophils 0.0 K/uL (0-0.5) 06/12/21 03:56 Absolute Basophils 0.0 K/uL (0-0.5) 06/12/21 03:56 Platelet Estimate Decr 06/11/21 13:51 Poikilocytosis 1+ 06/11/21 13:51 Anisocytosis 1+ 06/11/21 13:51 Morphology Comment Noted (NOT SEEN) 06/11/21 13:51 Sodium 132 mmol/L (136-145) L 06/12/21 03:56 Potassium 4.8 mmol/L (3.5-5.1) 06/12/21 03:56 Chloride 100 mmol/L (98-107) 06/12/21 03:56 Carbon Dioxide 26 mmol/L (21-32) 06/12/21 03:56 BUN 45 mg/dL (7-18) H 06/12/21 03:56 Creatinine 5.21 mg/dL (0.55-1.3) H* 06/12/21 03:56 Estimated GFR 8 mL/min (=/>90) L 06/12/21 03:56 Glucose 108 mg/dL (74-106) H 06/12/21 03:56 POC Glucose 68 mg/dL (65-120) 06/12/21 10:59 Calcium 7.9 mg/dL (8.5-10.1) L 06/12/21 03:56 Total Bilirubin 0.7 mg/dL (0.2-1.0) 06/12/21 03:56 AST 13 U/L (15-37) L 06/12/21 03:56 ALT < 10 U/L (12-78) L 06/12/21 03:56 Alkaline Phosphatase 312 U/L (45-117) H 06/12/21 03:56 Troponin I High Sens 118.90 pg/mL (<58.9) H* 06/12/21 03:56 C-Reactive Protein 92.70 mg/L (<3.00) H 06/12/21 03:56 Serum Total Protein 5.0 g/dL (6.4-8.2) L 06/12/21 03:56 Albumin 1.5 g/dL (3.4-5.0) L 06/12/21 03:56 Globulin 3.5 g/dL (2.3-3.5) 06/12/21 03:56 Albumin/Globulin Ratio 0.4 (1.1-1.8) L 06/12/21 03:56 Procalcitonin 15.52 ng/mL (<0.050) H 06/12/21 03:56 Urine pH 7.0 (5.0-7.0) 06/11/21 15:10 Ur Specific [place] 1.015 (1.005-1.030) 06/11/21 15:10 Glucose (UA)(Auto) Negative (Negative) 06/11/21 15:10 Urine Ketones Negative (Negative) 06/11/21 15:10 Urine Blood Negative (Negative) 06/11/21 15:10 Urine Nitrite Negative (Negative) 06/11/21 15:10 Ur Leukocyte Esterase 1+ (Negative) H 06/11/21 15:10 Urine RBC <5 /HPF (NONE SEEN) 06/11/21 15:10 Urine WBC 10-20 /HPF (<5) H 06/11/21 15:10 Ur Squamous Epith Cells <5 /HPF (NONE SEEN) 06/11/21 15:10 Urine Bacteria 20-50 /HPF (<20) H 06/11/21 15:10 Urine Mucus 2+ /HPF (NONE SEEN) 06/11/21 15:10 Urine Culture Reflexed Reflexed 06/11/21 15:10 Urine Total Protein 1+ (Negative) H 06/11/21 15:10 Hep Bs Antigen Cancelled 06/12/21 10:39 Hep Bs Ag Confirmation Cancelled 06/12/21 10:39 Hep Bs Antibody Cancelled 06/12/21 10:39 Hep B Core Total Ab Cancelled 06/12/21 10:39 Hepatitis C Antibody Cancelled 06/12/21 10:39 Hep C Ab Signal/Cutoff Cancelled 06/12/21 10:39 Influenza Type A RNA Negative (NEGATIVE) 06/11/21 13:40 Influenza Type B RNA Negative (NEGATIVE) 06/11/21 13:40 SARS-CoV-2 RNA (RT-PCR) Negative (NEGATIVE) 06/11/21 13:40 Smear Scan Ok (OK) 06/11/21 13:51 Miscellaneous Test Sent 06/12/21 10:39 Microbiology Data (last 24 hrs): 06/11/21 15:10 Clean Catch Urine [place] Count - Final >100,000 CFU/ML. 06/11/21 15:10 Clean Catch Urine - Final Escherichia Coli Esbl Assessment And Plan - Plan Physical Exam: General: Other (Altered mental status ) HEENT: Other (Laceration with sutures to left side of forehead.) Neck: Supple, 2+ carotid pulse no bruit Respiratory: Clear to auscultation bilaterally, Normal air movement Integumentary: Other (Bilateral knee/spangler wounds. Unclear origin of wounds, likely traumatic. Left anterior spangler wound with copious purulent drainage and periwound tissue erythema) Antibiotics: Bactrim: 06/12current merum: 06/13-current Assessment/plan UTI Urine culture growing ESBL E. coli. Patient placed on meropenem on 06/13. -Recommend obtaining CT abdomen pelvis due to patient's history of recurrent urinary tract infections Left anterior spangler abscess -Status post surgical I&D performed by Dr. Meadows on 06/13. Continue wound care per surgical team. -Wound culture pending -Continue Bactrim Leukocytosis -Resolved Bilateral knee traumatic wounds Wound care to left knee: Clean with saline, apply Xeroform, and cover with Mepitel -Wound care to right knee: Clean with saline, apply Medihoney, and cover with Mepitel Right anterior spangler wound -Wound care: Clean with saline, apply Medihoney, cover with Mepitel ESRD on HD Patient noncompliant, nephrology following Medical management per primary team Plan of care discussed with Dr. Gaytan Thank you for consultation
--- NOTE | 2021-06-14 15:21 | PN ---
Date of Progress Note: 06/14/2021 Diagnosis: Status post I and D of the left leg and debridement of necrotic ulcer. Subjective: The patient is doing well. Physical Examination: Extremities: Intact surgical site. Vital Signs: Temperature is 97, blood Pressure is 117/56. Laboratory Data: Blood work shows WBC count coming down from 22 to 8.9, hemoglobin of 8.4. Plan: Continue dressing changes with wet-to-dry, we will do in the meantime if she gets discharged. [facility] or Friday morning. JOEL/CELESTINE Voice ID: [id number] Report ID: [id number]
[2021-06-14] MEDS: SMZ./TMP. 800/160 MG TABLET PO SCH (21:09)
[2021-06-14] MEDS: ATORVASTATIN 40 MG TAB PO SCH (21:09)
[2021-06-15] MEDS: HYDROCODONE/APAP 5/325 MG TAB PO PRN ×4 (00:12→22:00)
--- NOTE | 2021-06-15 03:24 | PN ---
Date of Progress Note: 06/14/2021 Chief Complaint: End stage renal disease, on hemodialysis. History Of Present Illness: The patient presented to the hospital because of generalized weakness, shortness of breath, and status post fall. She was found to have hypoglycemia and urinary tract infection. She was started on IV antibiotics for urosepsis. She is hemodynamically stable and tolerated p.o. intake. The patient has had complicated history of congestive heart failure with systolic and diastolic dysfunction, coronary artery disease, history of medical noncompliance, and history of renal osteodystrophy. EMS was called when patient developed altered mental status. She became confused and had weakness and lightheaded. She was found to have hypoglycemia and was treated with IV dextrose. Currently, glycemia is in control, and she denies nausea or vomiting. Objective: Lungs: Clear to auscultation bilaterally. Heart: S1, S2. Abdomen: Soft. Benign. Extremities: Slight edema. Impression And Plan: 1. Diabetes mellitus with renal manifestation, continue dialysis 3 times per week. 2. End-stage renal disease due to diabetic kidney disease. Dialysis will be done with ultrafiltration to control volemia. The patient has history of congestive heart failure and she presented with fluid overload. She is noncompliant with dialysis schedule. Continue p.o. fluid restriction and advance ultrafiltration with dialysis as tolerated. 3. Sepsis. Severe leukocytosis. The patient was found to have necrotic subcutaneous tissue, infected wound, infected hematoma and abscess in the lower extremities and underwent debridement of necrotic and infected tissue. Continue broad-spectrum antibiotic. JONNY/CELESTINE Voice ID: [id number] Report ID: [id number] AZUCENA
[2021-06-15] MEDS: INSULIN -REGULAR HUMAN 50 UNIT/0.5 ML ML SQ SCH ×4 (06:00→18:00)
--- NOTE | 2021-06-15 06:17 | P.PN ---
Date of Service: 06/15/21 Subjective: feels very weak, foggy lower extremity discomfort slight improvement ROS: 10 point ROS as noted above, otherwise negative Physical exam GEN: Alert, oriented x2 HEENT: Normal conjunctiva, sclera anicteric CV: Regular rate and rhythm, trace b/l lower extremity edema Pulm: Non-labored respirations, diminished at bases bilaterally ABD: Soft, nontender, nondistended Integumentary: b/l LLE with dressings in place, c/d/i Neuro: moves extremities, generalized weakness Problem List Sepsis secondary to LLE abscess and UTI, without severe sepsis/septic shock UTI, ESBL e. coli Diabetes mellitus type 2insulin-dependent with hypoglycemia Chronic systolic/diastolic congestive heart failure ESRD on HD Right spangler wound after fall 06/01/2021 COPD Hypertension Anemia of chronic disease b/l lower extremity wounds, large L abscess now s/p I&D - growing ESBL urine: ESBL as well blood pending, prelim: no growth continue IV merrem, on PO bactrim as well; awaiting final cultures. ID consulted s/p I&D of LLE abscess on 06/13 Nephrology following patient very weak PT consulted VTE: Heparin Code: Full Dispo: may need LTACH vs SNF, more open to idea today, realizing she has been very sick, falling at home states she will think about this today, she will discuss with her daughter Time Spent Managing Pts Care (In Minutes): 35
[2021-06-15 06:41] LABS: Hematocrit 27.8 % (36.0-45.0); MPV 7.5 fL (7.6-11.3); RBC Red Blood Cell Count 3.21 M/uL (3.86-4.86)
[2021-06-15 06:55] LABS: Magnesium 1.8 mg/dL (1.8-2.4); Potassium 3.9 mmol/L (3.5-5.1)
[2021-06-15] MEDS: FOLBIC 1 TAB PO SCH (08:44)
[2021-06-15] MEDS: Meropenem 500 MG in NA CHLORIDE 0.9% 100 ML IV SCH ×2 (08:44→22:02)
[2021-06-15] MEDS: CLOPIDOGREL 75 MG TABLET PO SCH (08:44)
[2021-06-15] MEDS: ASPIRIN 81 MG CHEWABLE TABLET PO SCH (08:44)
[2021-06-15] MEDS: MEDIHONEY 44 ML TOPICAL TUBE TOP SCH (08:45)
[2021-06-15] MEDS: HEPARIN 5000 UNIT/ML 1 ML VIAL SQ SCH ×2 (08:46→22:02)
[2021-06-15] MEDS: FLUTICASONE 110 MCG/PUFF 12 GM INH IH SCH ×2 (08:47→21:00)
[2021-06-15] MEDS: DIPHENHYDRAMINE 25 MG TAB/CAP PO PRN (10:44)
[2021-06-15] MEDS: EPOETIN 4,000 UNIT/ML VIAL IV SCH (13:45)
[2021-06-15] MEDS: D10W 125 ML IV SCH (16:00)
[2021-06-15] MEDS: ONDANSETRON 4 MG/2 ML VIAL IV PRN (16:59)
[2021-06-15] MEDS: SMZ./TMP. 800/160 MG TABLET PO SCH (22:01)
[2021-06-15] MEDS: ATORVASTATIN 40 MG TAB PO SCH (22:02)
[2021-06-16] MEDS: DIPHENHYDRAMINE 25 MG TAB/CAP PO PRN ×2 (03:19→15:23)
--- NOTE | 2021-06-16 03:19 | PN ---
Date of Progress Note: 06/15/2021 Chief Complaint: End-stage renal disease, congestive heart failure with systolic and diastolic dysfu nction status post fall, generalized weakness, fatigue, failure to thrive. History Of Present Illness: Patient presented to the hospital because of generalized weakness, short ness of breath, status post fall. Patient was hemodynamically stable. She was found to have urinary tract infection with urosepsis. Antibiotics were started. The patient has coronary artery disease, history of noncompliance and history of renal osteodystrophy. The patient was found to have hypogly cemia and received treatment with IV dextrose. Review of Systems: Denies fever, chills. Physical Examination: Lungs: Clear to auscultation bilaterally. Heart: S1, S2. Abdomen: Soft, benign. Extremities: Slight edema. Impression And Plan: 1.Diabetes mellitus with renal manifestation. Continue dialysis 3 times per week. 2.End-stage renal disease due to diabetic kidney disease. Dialysis will be done with ultrafiltratio n. Today, she underwent dialysis with ultrafiltration. Procedure was well tolerated. The patient w as found to have hypoglycemia, was treated with p.o. apple juice. Monitor glycemia. 3.Sepsis. Severe leukocytosis. The patient was found to have necrotic subcutaneous tissue, infecte d wound, complicated by hematoma and abscess. She underwent debridement of necrotic and infected tis vida. Continue broad-septum antibiotics. 4.Renal osteodystrophy. Monitor phosphorus level, adjust binders as needed. 5.Anemia, chronic kidney disease. Monitor hemoglobin level. The patient currently has optimal hemo globin level. EB/MODL Voice ID: [id number] Report ID: [id number]
[2021-06-16] MEDS: HYDROCODONE/APAP 5/325 MG TAB PO PRN ×3 (04:54→21:12)
[2021-06-16 05:42] LABS: Hematocrit 28.6 % (36.0-45.0); MPV 7.5 fL (7.6-11.3); RBC Red Blood Cell Count 3.27 M/uL (3.86-4.86)
[2021-06-16 05:55] LABS: Potassium 3.7 mmol/L (3.5-5.1)
[2021-06-16] MEDS: INSULIN -REGULAR HUMAN 50 UNIT/0.5 ML ML SQ SCH ×4 (06:00→18:00)
--- NOTE | 2021-06-16 06:22 | P.PN ---
Date of Service: 06/16/21 Subjective: improving slowly, minimal appetite, not much physical activity ROS: 10 point ROS as noted above, otherwise negative Physical exam GEN: Alert, oriented x3 HEENT: Normal conjunctiva, sclera anicteric CV: Regular rate and rhythm, trace b/l lower extremity edema Pulm: Non-labored respirations, diminished at bases bilaterally; on 2L NC ABD: Soft, nontender, nondistended Integumentary: b/l LLE with dressings in place, c/d/i; b/l feet with small mcwilliams perficial ulcerations Neuro: moves extremities, generalized weakness Problem List Sepsis secondary to LLE abscess and UTI, without severe sepsis/septic shock UTI, ESBL e. coli Diabetes mellitus type 2insulin-dependent with hypoglycemia Chronic systolic/diastolic congestive heart failure ESRD on HD Right spangler wound after fall 06/01/2021 COPD Hypertension Anemia of chronic disease b/l lower extremity wounds, large L abscess now s/p I&D - growing ESBL urine: ESBL as well blood pending, prelim: no growth continue IV merrem, on PO bactrim as well; ID consulted s/p I&D of LLE abscess on 06/13; wet-to-dry dressing changes Nephrology following patient very weak; states she gets around in wheelchair at baseline PT consulted VTE: Heparin Code: Full Dispo: may need LTACH vs SNF, more open to idea today, realizing she has been very sick, falling at home I spoke with her daughter, Symone, who is POA on 06/15, would be agreeable if patient needs it Daughter prefers local SNFs Time Spent Managing Pts Care (In Minutes): 35
[2021-06-16] MEDS: FLUTICASONE 110 MCG/PUFF 12 GM INH IH SCH ×2 (09:00→20:46)
[2021-06-16] MEDS: ASPIRIN 81 MG CHEWABLE TABLET PO SCH (09:00)
[2021-06-16] MEDS: FOLBIC 1 TAB PO SCH (09:00)
[2021-06-16] MEDS: HEPARIN 5000 UNIT/ML 1 ML VIAL SQ SCH ×2 (09:01→21:26)
[2021-06-16] MEDS: MEDIHONEY 44 ML TOPICAL TUBE TOP SCH (09:01)
[2021-06-16] MEDS: CLOPIDOGREL 75 MG TABLET PO SCH (09:01)
[2021-06-16] MEDS: ONDANSETRON 4 MG/2 ML VIAL IV PRN (15:25)
[2021-06-16] MEDS: SMZ./TMP. 800/160 MG TABLET PO SCH (21:12)
[2021-06-16] MEDS: ATORVASTATIN 40 MG TAB PO SCH (21:12)
[2021-06-16] MEDS: Meropenem 500 MG in NA CHLORIDE 0.9% 100 ML IV SCH (21:13)
--- NOTE | 2021-06-16 22:40 | PN ---
Date of Progress Note: 06/16/2021 Chief Complaint: End-stage renal disease, status post fall. History Of Present Illness: The patient has multiple medical problems. She has history of congestiv e heart failure; systolic and diastolic dysfunction; frequent fall; generalized weakness; failure-to- thrive; diabetes mellitus with renal manifestation; end-stage renal disease, on hemodialysis; history of medical noncompliance. Patient presented to the hospital because of status post fall and she has presyncopal episode with shortness of breath and generalized weakness. The patient was hemodynamica lly stable. She was found to have urinary tract infection, antibiotics were started. The patient bradshaw s history of coronary artery disease. Review Of Symptoms: Denies fever and chills. Physical Examination: Lungs: Clear to auscultation bilaterally. Heart: S1 and S2. Abdomen: Soft. Benign. Extremities: Slight edema. Impression And Plan: 1.Diabetes mellitus with renal manifestation. Continue dialysis 3 times per week. 2.The patient had dialysis yesterday and ultrafiltration was done to control congestive heart failur e and volemia. 3.Sepsis. Severe leukocytosis. The patient was found to have necrotic subcutaneous tissue, infecte d wound, complicated hematoma and abscess. She underwent debridement of necrotic and infected tissue . Continue antibiotics. 4.Anemia of chronic kidney disease. Continue to monitor hemoglobin level. The patient will resume BRONWYN. JONNY/CELESTINE Voice ID: [id number] Report ID: [id number]
[2021-06-17 06:16] LABS: Albumin 1.3 g/dL (3.4-5.0); Magnesium 1.9 mg/dL (1.8-2.4); Phosphorus 2.5 mg/dL (2.5-4.9)
--- NOTE | 2021-06-17 06:25 | P.PN ---
Date of Service: 06/17/21 Subjective: feels slightly better, less confused b/l legs with some discomfort. lower back discomfort generalized weakness, but feels improving ROS: 10 point ROS as noted above, otherwise negative Physical exam GEN: Alert, oriented x3 HEENT: Normal conjunctiva, sclera anicteric CV: Regular rate and rhythm, trace b/l lower extremity edema Pulm: Non-labored respirations, diminished at bases bilaterally; on 2L NC ABD: Soft, nontender, nondistended Integumentary: b/l LLE with dressings in place, c/d/i; b/l feet with small superficial ulcerations Neuro: moves extremities, generalized weakness Problem List Sepsis secondary to LLE abscess and UTI, without severe sepsis/septic shock UTI, ESBL e. coli Diabetes mellitus type 2insulin-dependent with hypoglycemia Chronic systolic/diastolic congestive heart failure ESRD on HD Right spangler wound after fall 06/01/2021 COPD Hypertension Anemia of chronic disease b/l lower extremity wounds, large L abscess now s/p I&D - growing ESBL urine: ESBL as well blood cx prelim: no growth continue IV merrem, on PO bactrim as well; ID consulted s/p I&D of LLE abscess on 06/13; wet-to-dry dressing changes Nephrology following patient very weak; states she gets around in wheelchair at baseline PT consulted slowly improving VTE: Heparin Code: Full Dispo: may need LTACH vs SNF Daughter, Symone, who is POA, would be agreeable if patient needs it Daughter prefers local SNFs Time Spent Managing Pts Care (In Minutes): 35
[2021-06-17] MEDS: HYDROCODONE/APAP 5/325 MG TAB PO PRN ×3 (06:35→18:06)
[2021-06-17] MEDS: INSULIN -REGULAR HUMAN 50 UNIT/0.5 ML ML SQ SCH ×5 (07:30→21:00)
[2021-06-17] MEDS: FLUTICASONE 110 MCG/PUFF 12 GM INH IH SCH ×2 (09:00→21:00)
[2021-06-17] MEDS: HEPARIN 5000 UNIT/ML 1 ML VIAL SQ SCH ×2 (09:40→21:35)
[2021-06-17] MEDS: ASPIRIN 81 MG CHEWABLE TABLET PO SCH (09:40)
[2021-06-17] MEDS: CLOPIDOGREL 75 MG TABLET PO SCH (09:40)
[2021-06-17] MEDS: FOLBIC 1 TAB PO SCH (10:21)
[2021-06-17] MEDS: MEDIHONEY 44 ML TOPICAL TUBE TOP SCH (10:24)
[2021-06-17] MEDS: Meropenem 500 MG in NA CHLORIDE 0.9% 100 ML IV SCH (21:35)
[2021-06-17] MEDS: ATORVASTATIN 40 MG TAB PO SCH (21:35)
[2021-06-17] MEDS: D10W 125 ML IV SCH (21:36)
[2021-06-17] MEDS: SMZ./TMP. 800/160 MG TABLET PO SCH (21:37)
[2021-06-18] MEDS: HYDROCODONE/APAP 5/325 MG TAB PO PRN ×5 (00:01→22:55)
--- NOTE | 2021-06-18 02:37 | PN ---
CC ESRD, HD Chief Complaint: End-stage renal disease, congestive heart failure, status post fall. History Of Present Illness: The patient has multiple medical problems, has history of congestive heart failure, systolic and diastolic dysfunction, frequent fall, frequent admission for CHF exacerbation, [id number], diabetes mellitus with renal manifestation, she is on hemodialysis for diabetic kidney disease with end-stage renal disease. She has history of medical noncompliance. The patient presented to the hospital after she sustained fall and she had presyncopal episode. She was found to have nonhealing lower extremity wound and underwent debridement. She is on broad-spectrum antibiotics, leukocytosis, was severe and is somewhat improved. Review of Systems: Denies fever or chills. Physical Examination: Lungs: Clear to auscultation bilaterally. Heart: S1 and S2. Abdomen: Soft. Benign. Extremities: Slight edema. Dressing in place. Impression And Plan: 1. Diabetes mellitus with renal manifestation. Continue dialysis 3 times per week. The patient has history of noncompliance with dialysis scheduled. 2. Fluid overload. Continue low-sodium diet. P.o. fluid restriction. Ultrafiltration will be adjusted for volume control. 3. Sepsis. Severe leukocytosis. The patient was found to have necrotic subcutaneous tissue, infected wound, complicated hematoma and abscess. She underwent debridement of necrotic and infected tissue. Continue antibiotics. 4. Anemia of chronic kidney disease. Monitor hemoglobin level. Adjust BRONWYN as needed. JONNY/CELESTINE Voice ID: [id number] Report ID: [id number] AZUCENA
--- NOTE | 2021-06-18 06:11 | P.PN ---
Date of Service: 06/18/21 Subjective: improving strength returning, still weak; shaky when trying to feed herself breathing more comfortably, pain slowly improving ROS: 10 point ROS as noted above, otherwise negative Physical exam GEN: Alert, oriented x3, mild dementia HEENT: Normal conjunctiva, sclera anicteric CV: Regular rate and rhythm, trace b/l lower extremity edema Pulm: Non-labored respirations, diminished at bases bilaterally; on 2L NC ABD: Soft, nontender, nondistended Integumentary: b/l LLE with dressings in place, c/d/i; b/l feet with small superficial ulcerations Neuro: moves extremities, generalized weakness Problem List Severe sepsis secondary to LLE abscess and UTI, without shock; improved UTI, ESBL e. coli Diabetes mellitus type 2insulin-dependent with hypoglycemia Chronic systolic/diastolic congestive heart failure ESRD on HD Right spangler wound after fall 06/01/2021 COPD Hypertension Anemia of chronic disease BP mildly hypotensive / low-normal and edematous with h/o CHF and ESRD, did not receive full sepsis bolus acute metabolic encephalopathy secondary to sepsis, ESRD b/l lower extremity wounds, large L abscess now s/p I&D - growing ESBL urine: ESBL as well blood cx prelim: no growth continue IV merrem, on PO bactrim as well; ID consulted can likely dc merrem and continue bactrim on dc s/p I&D of LLE abscess on 06/13; wet-to-dry dressing changes Nephrology following patient very weak; states she gets around in wheelchair at baseline PT consulted slowly improving VTE: Heparin Code: Full Dispo: SNF, daughter, Symone, who is POA, would be agreeable if patient needs it director social consulted Time Spent Managing Pts Care (In Minutes): 35
[2021-06-18 06:59] LABS: Hematocrit 29.1 % (36.0-45.0); MPV 7.5 fL (7.6-11.3); RBC Red Blood Cell Count 3.32 M/uL (3.86-4.86)
[2021-06-18 07:17] LABS: Albumin 1.2 g/dL (3.4-5.0); Magnesium 1.8 mg/dL (1.8-2.4); Phosphorus 2.8 mg/dL (2.5-4.9)
[2021-06-18] MEDS: INSULIN -REGULAR HUMAN 50 UNIT/0.5 ML ML SQ SCH ×4 (07:30→21:00)
[2021-06-18] MEDS: HEPARIN 5000 UNIT/ML 1 ML VIAL SQ SCH ×2 (08:22→20:38)
[2021-06-18] MEDS: FOLBIC 1 TAB PO SCH (08:22)
[2021-06-18] MEDS: ASPIRIN 81 MG CHEWABLE TABLET PO SCH (08:22)
[2021-06-18] MEDS: CLOPIDOGREL 75 MG TABLET PO SCH (08:22)
[2021-06-18] MEDS: FLUTICASONE 110 MCG/PUFF 12 GM INH IH SCH ×2 (08:23→20:38)
[2021-06-18] MEDS: MEDIHONEY 44 ML TOPICAL TUBE TOP SCH (08:24)
--- NOTE | 2021-06-18 18:03 | P.PN ---
Subjective Date of Service: 06/18/21 Chief Complaint: UTI, hypoglycemia Patient seen and examined at bedside, states she is having general pain all over. Review of Systems 10-point ROS is otherwise unremarkable Physical Examination - Vital Signs Temperature: 97.5 F Blood Pressure: 126/58 Pulse: 66 Respirations: 16 Pulse Ox (%): 96 - Studies Laboratory Last Values WBC 20.10 K/uL (4.3-10.9) H* 06/12/21 03:56 RBC 3.27 M/uL (3.86-4.86) L 06/12/21 03:56 Hgb 9.2 g/dL (12.0-15.0) L 06/12/21 03:56 Hct 28.6 % (36.0-45.0) L 06/12/21 03:56 MCV 87.4 fL (80-100) 06/12/21 03:56 MCH 28.1 pg (27.0-35.0) 06/12/21 03:56 MCHC 32.1 g/dL (32.0-36.0) 06/12/21 03:56 RDW 17.3 % (12.1-15.2) H 06/12/21 03:56 Plt Count 119 K/uL (152-406) L 06/12/21 03:56 MPV 7.6 fL (7.6-11.3) 06/12/21 03:56 Neutrophils % 91.1 % (41.7-73.7) H 06/12/21 03:56 Lymphocytes % 6.2 % (15.3-44.8) L 06/12/21 03:56 Monocytes % 2.5 % (3.3-12.3) L 06/12/21 03:56 Eosinophils % 0.1 % (0-4.4) 06/12/21 03:56 Basophils % 0.1 % (0-1.3) 06/12/21 03:56 Absolute Neutrophils 18.3 K/uL (1.8-8.0) H 06/12/21 03:56 Absolute Lymphocytes 1.2 K/uL (0.7-4.9) 06/12/21 03:56 Absolute Monocytes 0.5 K/uL (0.1-1.3) 06/12/21 03:56 Absolute Eosinophils 0.0 K/uL (0-0.5) 06/12/21 03:56 Absolute Basophils 0.0 K/uL (0-0.5) 06/12/21 03:56 Platelet Estimate Decr 06/11/21 13:51 Poikilocytosis 1+ 06/11/21 13:51 Anisocytosis 1+ 06/11/21 13:51 Morphology Comment Noted (NOT SEEN) 06/11/21 13:51 Sodium 132 mmol/L (136-145) L 06/12/21 03:56 Potassium 4.8 mmol/L (3.5-5.1) 06/12/21 03:56 Chloride 100 mmol/L (98-107) 06/12/21 03:56 Carbon Dioxide 26 mmol/L (21-32) 06/12/21 03:56 BUN 45 mg/dL (7-18) H 06/12/21 03:56 Creatinine 5.21 mg/dL (0.55-1.3) H* 06/12/21 03:56 Estimated GFR 8 mL/min (=/>90) L 06/12/21 03:56 Glucose 108 mg/dL (74-106) H 06/12/21 03:56 POC Glucose 68 mg/dL (65-120) 06/12/21 10:59 Calcium 7.9 mg/dL (8.5-10.1) L 06/12/21 03:56 Total Bilirubin 0.7 mg/dL (0.2-1.0) 06/12/21 03:56 AST 13 U/L (15-37) L 06/12/21 03:56 ALT < 10 U/L (12-78) L 06/12/21 03:56 Alkaline Phosphatase 312 U/L (45-117) H 06/12/21 03:56 Troponin I High Sens 118.90 pg/mL (<58.9) H* 06/12/21 03:56 C-Reactive Protein 92.70 mg/L (<3.00) H 06/12/21 03:56 Serum Total Protein 5.0 g/dL (6.4-8.2) L 06/12/21 03:56 Albumin 1.5 g/dL (3.4-5.0) L 06/12/21 03:56 Globulin 3.5 g/dL (2.3-3.5) 06/12/21 03:56 Albumin/Globulin Ratio 0.4 (1.1-1.8) L 06/12/21 03:56 Procalcitonin 15.52 ng/mL (<0.050) H 06/12/21 03:56 Urine pH 7.0 (5.0-7.0) 06/11/21 15:10 Ur Specific [place] 1.015 (1.005-1.030) 06/11/21 15:10 Glucose (UA)(Auto) Negative (Negative) 06/11/21 15:10 Urine Ketones Negative (Negative) 06/11/21 15:10 Urine Blood Negative (Negative) 06/11/21 15:10 Urine Nitrite Negative (Negative) 06/11/21 15:10 Ur Leukocyte Esterase 1+ (Negative) H 06/11/21 15:10 Urine RBC <5 /HPF (NONE SEEN) 06/11/21 15:10 Urine WBC 10-20 /HPF (<5) H 06/11/21 15:10 Ur Squamous Epith Cells <5 /HPF (NONE SEEN) 06/11/21 15:10 Urine Bacteria 20-50 /HPF (<20) H 06/11/21 15:10 Urine Mucus 2+ /HPF (NONE SEEN) 06/11/21 15:10 Urine Culture Reflexed Reflexed 06/11/21 15:10 Urine Total Protein 1+ (Negative) H 06/11/21 15:10 Hep Bs Antigen Cancelled 06/12/21 10:39 Hep Bs Ag Confirmation Cancelled 06/12/21 10:39 Hep Bs Antibody Cancelled 06/12/21 10:39 Hep B Core Total Ab Cancelled 06/12/21 10:39 Hepatitis C Antibody Cancelled 06/12/21 10:39 Hep C Ab Signal/Cutoff Cancelled 06/12/21 10:39 Influenza Type A RNA Negative (NEGATIVE) 06/11/21 13:40 Influenza Type B RNA Negative (NEGATIVE) 06/11/21 13:40 SARS-CoV-2 RNA (RT-PCR) Negative (NEGATIVE) 06/11/21 13:40 Smear Scan Ok (OK) 06/11/21 13:51 Miscellaneous Test Sent 06/12/21 10:39 Assessment And Plan - Plan Physical Exam: General: Other (Altered mental status ) HEENT: Other (Laceration with sutures to left side of forehead.) Neck: Supple, 2+ carotid pulse no bruit Respiratory: Clear to auscultation bilaterally, Normal air movement Integumentary: Other (Bilateral knee/spangler wounds. Unclear origin of wounds, likely traumatic. Left anterior spangler wound with copious purulent drainage and periwound tissue erythema. Status post surgical I&D performed by Dr. Meadows on 06/13) Antibiotics: Bactrim: 06/12current merum: 06/13-06/18 Assessment/plan UTI Urine culture growing ESBL E. coli. Patient placed on meropenem on 06/13. Urine culture showing susceptibility to oral Bactrim, meropenem discontinued on 06/18. We will try course of oral Bactrim. -Recommend obtaining CT abdomen pelvis due to patient's history of recurrent urinary tract infections Left anterior spangler abscess -Status post surgical I&D performed by Dr. Meadows on 06/13. -Wound culture growing ESBL E. coli -Continue Bactrim -Wound care: Clean with saline and apply Santyl Leukocytosis -Resolved Bilateral knee traumatic wounds Wound care to left knee: Clean with saline, apply Xeroform, and cover with Mepitel -Wound care to right knee: Clean with saline, apply Medihoney, and cover with Mepitel Right anterior spangler wound -Wound care: Clean with saline, apply Medihoney, cover with Mepitel ESRD on HD Patient noncompliant, nephrology following Medical management per primary team Plan of care discussed with Dr. Gaytan Thank you for consultation
[2021-06-18 18:27] LABS: HBsAG Nonreactive (Nonreactive)
[2021-06-18] MEDS: ATORVASTATIN 40 MG TAB PO SCH (20:38)
[2021-06-18] MEDS: SMZ./TMP. 800/160 MG TABLET PO SCH (20:38)
[2021-06-19] MEDS: HYDROCODONE/APAP 5/325 MG TAB PO PRN ×3 (05:11→17:17)
[2021-06-19 06:30] LABS: Hematocrit 29.6 % (36.0-45.0); MPV 7.5 fL (7.6-11.3); RBC Red Blood Cell Count 3.46 M/uL (3.86-4.86)
[2021-06-19 06:59] LABS: Albumin 1.2 g/dL (3.4-5.0); Phosphorus 3.4 mg/dL (2.5-4.9)
[2021-06-19 07:00] LABS: Magnesium 1.7 mg/dL (1.8-2.4); Potassium 4.9 mmol/L (3.5-5.1)
[2021-06-19] MEDS: INSULIN -REGULAR HUMAN 50 UNIT/0.5 ML ML SQ SCH ×4 (07:30→21:00)
--- NOTE | 2021-06-19 08:00 | P.PN ---
Subjective Date of Service: 06/19/21 Chief Complaint: UTI, hypoglycemia Subjective: No new changes Physical Examination - Vital Signs Temperature: 97.6 F Blood Pressure: 125/45 Pulse: 66 Respirations: 19 Pulse Ox (%): 95 - Physical Exam General: Other (chronically ill-appearing) HEENT: Atraumatic, Normocephalic Neck: Supple Respiratory: Other (symmetric chest expansion) Cardiovascular: No rubs, No murmurs Gastrointestinal: Soft and benign, No guarding Musculoskeletal: No warmth, Swelling Integumentary: No warmth Neurological: Normal speech, Normal tone Lymphatics: No axilla or inguinal lymphadenopathy Urinary: Other (no bladder distention) External genitalia: Deferred Rectal: Deferred Assessment And Plan - Plan 1. ESRD on HD. HD received today per TTS sked. 2. Fluid overload. HD as above. 3. Sepsis. The patient was found to have necrotic subcutaneous tissue, infected wound, complicated hematoma and abscess. She underwent debridement of necrotic and infected tissue. Continue antibiotics. 4. Anemia of chronic kidney disease. Monitor hemoglobin level. Adjust BRONWYN as needed. 5. Renal osteodystrophy. Monitor calcium and phosphorus.
[2021-06-19] MEDS: MEDIHONEY 44 ML TOPICAL TUBE TOP SCH (08:11)
[2021-06-19] MEDS: CLOPIDOGREL 75 MG TABLET PO SCH (08:12)
[2021-06-19] MEDS: ASPIRIN 81 MG CHEWABLE TABLET PO SCH (08:12)
[2021-06-19] MEDS: FOLBIC 1 TAB PO SCH (08:12)
[2021-06-19] MEDS: HEPARIN 5000 UNIT/ML 1 ML VIAL SQ SCH ×2 (08:12→22:49)
[2021-06-19] MEDS: FLUTICASONE 110 MCG/PUFF 12 GM INH IH SCH ×2 (08:13→21:00)
[2021-06-19] MEDS: DIPHENHYDRAMINE 25 MG TAB/CAP PO PRN (08:22)
[2021-06-19] MEDS: ENSURE PLANT-BASED PROTEIN VANILLA 330 ML CAN PO SCH ×2 (09:00→21:00)
[2021-06-19] MEDS ORDERED: FOLIC ACID 1 MG TABLET PO SCH (09:00)
[2021-06-19] MEDS ORDERED: THIAMINE HCL 100 MG TABLET PO SCH (09:00)
[2021-06-19] MEDS ORDERED: COLLAGENASE 30 GM OINTMENT TOP SCH (09:00)
[2021-06-19 11:08] VITALS: O2SAT 100
--- NOTE | 2021-06-19 11:32 | P.PN ---
Subjective Date of Service: 06/19/21 Chief Complaint: UTI, hypoglycemia Patient seen and examined at bedside, no acute events over past 24 hours. Review of Systems 10-point ROS is otherwise unremarkable Physical Examination - Vital Signs Temperature: 97.6 F Blood Pressure: 125/45 Pulse: 66 Respirations: 18 Pulse Ox (%): 99 - Studies Laboratory Last Values WBC 20.10 K/uL (4.3-10.9) H* 06/12/21 03:56 RBC 3.27 M/uL (3.86-4.86) L 06/12/21 03:56 Hgb 9.2 g/dL (12.0-15.0) L 06/12/21 03:56 Hct 28.6 % (36.0-45.0) L 06/12/21 03:56 MCV 87.4 fL (80-100) 06/12/21 03:56 MCH 28.1 pg (27.0-35.0) 06/12/21 03:56 MCHC 32.1 g/dL (32.0-36.0) 06/12/21 03:56 RDW 17.3 % (12.1-15.2) H 06/12/21 03:56 Plt Count 119 K/uL (152-406) L 06/12/21 03:56 MPV 7.6 fL (7.6-11.3) 06/12/21 03:56 Neutrophils % 91.1 % (41.7-73.7) H 06/12/21 03:56 Lymphocytes % 6.2 % (15.3-44.8) L 06/12/21 03:56 Monocytes % 2.5 % (3.3-12.3) L 06/12/21 03:56 Eosinophils % 0.1 % (0-4.4) 06/12/21 03:56 Basophils % 0.1 % (0-1.3) 06/12/21 03:56 Absolute Neutrophils 18.3 K/uL (1.8-8.0) H 06/12/21 03:56 Absolute Lymphocytes 1.2 K/uL (0.7-4.9) 06/12/21 03:56 Absolute Monocytes 0.5 K/uL (0.1-1.3) 06/12/21 03:56 Absolute Eosinophils 0.0 K/uL (0-0.5) 06/12/21 03:56 Absolute Basophils 0.0 K/uL (0-0.5) 06/12/21 03:56 Platelet Estimate Decr 06/11/21 13:51 Poikilocytosis 1+ 06/11/21 13:51 Anisocytosis 1+ 06/11/21 13:51 Morphology Comment Noted (NOT SEEN) 06/11/21 13:51 Sodium 132 mmol/L (136-145) L 06/12/21 03:56 Potassium 4.8 mmol/L (3.5-5.1) 06/12/21 03:56 Chloride 100 mmol/L (98-107) 06/12/21 03:56 Carbon Dioxide 26 mmol/L (21-32) 06/12/21 03:56 BUN 45 mg/dL (7-18) H 06/12/21 03:56 Creatinine 5.21 mg/dL (0.55-1.3) H* 06/12/21 03:56 Estimated GFR 8 mL/min (=/>90) L 06/12/21 03:56 Glucose 108 mg/dL (74-106) H 06/12/21 03:56 POC Glucose 68 mg/dL (65-120) 06/12/21 10:59 Calcium 7.9 mg/dL (8.5-10.1) L 06/12/21 03:56 Total Bilirubin 0.7 mg/dL (0.2-1.0) 06/12/21 03:56 AST 13 U/L (15-37) L 06/12/21 03:56 ALT < 10 U/L (12-78) L 06/12/21 03:56 Alkaline Phosphatase 312 U/L (45-117) H 06/12/21 03:56 Troponin I High Sens 118.90 pg/mL (<58.9) H* 06/12/21 03:56 C-Reactive Protein 92.70 mg/L (<3.00) H 06/12/21 03:56 Serum Total Protein 5.0 g/dL (6.4-8.2) L 06/12/21 03:56 Albumin 1.5 g/dL (3.4-5.0) L 06/12/21 03:56 Globulin 3.5 g/dL (2.3-3.5) 06/12/21 03:56 Albumin/Globulin Ratio 0.4 (1.1-1.8) L 06/12/21 03:56 Procalcitonin 15.52 ng/mL (<0.050) H 06/12/21 03:56 Urine pH 7.0 (5.0-7.0) 06/11/21 15:10 Ur Specific [place] 1.015 (1.005-1.030) 06/11/21 15:10 Glucose (UA)(Auto) Negative (Negative) 06/11/21 15:10 Urine Ketones Negative (Negative) 06/11/21 15:10 Urine Blood Negative (Negative) 06/11/21 15:10 Urine Nitrite Negative (Negative) 06/11/21 15:10 Ur Leukocyte Esterase 1+ (Negative) H 06/11/21 15:10 Urine RBC <5 /HPF (NONE SEEN) 06/11/21 15:10 Urine WBC 10-20 /HPF (<5) H 06/11/21 15:10 Ur Squamous Epith Cells <5 /HPF (NONE SEEN) 06/11/21 15:10 Urine Bacteria 20-50 /HPF (<20) H 06/11/21 15:10 Urine Mucus 2+ /HPF (NONE SEEN) 06/11/21 15:10 Urine Culture Reflexed Reflexed 06/11/21 15:10 Urine Total Protein 1+ (Negative) H 06/11/21 15:10 Hep Bs Antigen Cancelled 06/12/21 10:39 Hep Bs Ag Confirmation Cancelled 06/12/21 10:39 Hep Bs Antibody Cancelled 06/12/21 10:39 Hep B Core Total Ab Cancelled 06/12/21 10:39 Hepatitis C Antibody Cancelled 06/12/21 10:39 Hep C Ab Signal/Cutoff Cancelled 06/12/21 10:39 Influenza Type A RNA Negative (NEGATIVE) 06/11/21 13:40 Influenza Type B RNA Negative (NEGATIVE) 06/11/21 13:40 SARS-CoV-2 RNA (RT-PCR) Negative (NEGATIVE) 06/11/21 13:40 Smear Scan Ok (OK) 06/11/21 13:51 Miscellaneous Test Sent 06/12/21 10:39 Assessment And Plan - Plan Physical Exam: General: Other (Altered mental status ) HEENT: Other (Laceration with sutures to left side of forehead.) Neck: Supple, 2+ carotid pulse no bruit Respiratory: Clear to auscultation bilaterally, Normal air movement Integumentary: Other (Bilateral knee/spangler wounds. Unclear origin of wounds, likely traumatic. Left anterior spangler wound with copious purulent drainage and periwound tissue erythema. Status post surgical I&D performed by Dr. Meadows on 06/13) Antibiotics: Bactrim: 06/12current merum: 06/13-06/18 Assessment/plan UTI Urine culture growing ESBL E. coli. Patient placed on meropenem on 06/13. Urine culture showing susceptibility to oral Bactrim, meropenem discontinued on 06/18. We will try course of oral Bactrim. -Recommend obtaining CT abdomen pelvis due to patient's history of recurrent urinary tract infections Left anterior spangler abscess -Status post surgical I&D performed by Dr. Meadows on 06/13. -Wound culture growing ESBL E. coli -Continue Bactrim -Wound care: Clean with saline and apply Santyl Leukocytosis -Resolved Bilateral knee traumatic wounds Wound care to left knee: Clean with saline, apply Xeroform, and cover with Mepitel -Wound care to right knee: Clean with saline, apply Medihoney, and cover with Mepitel Right anterior spangler wound -Wound care: Clean with saline, apply Medihoney, cover with Mepitel ESRD on HD Patient noncompliant, nephrology following Medical management per primary team Plan of care discussed with Dr. Gaytan Thank you for consultation
[2021-06-19] MEDS ORDERED: MAGNESIUM SULFATE 1 gm IVPB 1 GM/100 ML BAG IV ONE (12:47)
--- NOTE | 2021-06-19 13:04 | PN ---
Date of Progress Note: 06/18/2021 Chief Complaint: End-stage renal disease, congestive heart failure, status post fall. History Of Present Illness: The patient has multiple medical problems including history of coronary artery disease, congestive heart failure, systolic diastolic dysfunction, peripheral vascular disease , frequent falls, and frequent admissions for CHF exacerbation, failure to thrive, diabetes mellitus with renal manifestation on hemodialysis, history of medical noncompliance. The patient presented to the hospital after she sustained a fall at home and she had presyncopal episode. She was found to h ave nonhealing lower extremity wound and underwent debridement. She is on broad-spectrum antibiotics for sepsis with severe leukocytosis and nonhealing lower extremity wound. Review of Systems: Denies fever or chills. Physical Examination: Lungs: Clear to auscultation bilaterally. Heart: S1 and S2. Abdomen: Soft. Benign. Extremities: Dressing in place. Impression And Plan: 1.Diabetes mellitus with renal manifestation, end-stage renal disease. Continue dialysis 3 times pe r week. The patient has history of noncompliance with dialysis schedule outpatient. 2.Hypoalbuminemia, malnutrition. Increase p.o. protein intake. 3.Fluid overload. Continue low-sodium diet. P.o. fluid restriction. Ultrafiltration will be done with dialysis for volume control. 4.Sepsis, severe leukocytosis. The patient was found to have necrotic subcutaneous tissue, infected wound, complicated hematoma and abscess. She underwent debridement of necrotic and infected tissue. Continue antibiotics of broad spectrum. 5.Anemia due to chronic kidney disease. Continue BRONWYN. 6.Renal osteodystrophy. Continue binders and low-phosphorus diet. EB/MODL Voice ID: [id number] Report ID: [id number]
--- NOTE | 2021-06-19 14:09 | P.DS ---
Admission Date: 06/12/21 Discharge Date: 06/19/21 Disposition: TRANSFER TO HALF-WAY Discharge Condition: FAIR Reason for Admission: UTI, hypoglycemia Consultations: Nephrology General Surgery-Dr. Meadows. Brief History of Present Illness: 66-year-old female with history of CHF, CAD, diabetes mellitus type 2insulin- dependent, ESRD on HD presents emergency department for hypoglycemia. EMS was called as patient was altered at home on scene her blood sugar was noted to be 39 she was given oral glucose and blood sugar did improve. Patient's mental status has also improved is currently at her baseline. Patient was evaluated in the emergency department her labs were significant for significant leukocytosis also positive for UTI. Patient also with multiple wounds in various stages of healing, does have falls at home. Patient was seen here on June 01 for a fall and sustained a laceration to the right spangler which at the time was repaired with 6 sutures. Wound is without surrounding cellulitis, erythema or purulent drainage at this time, sutures were removed by ED provider. Patient also had vascular surgery with removal of left chest dialysis port and fistula surgery in the recent past. Patient was given Rocephin for UTI with leukocytosis. Patient admitted for further management. Hospital Course: Problem List Severe sepsis secondary to LLE abscess and UTI, without shock; improved UTI, ESBL e. coli Diabetes mellitus type 2insulin-dependent with hypoglycemia Chronic systolic/diastolic congestive heart failure ESRD on HD Right spangler wound after fall 06/01/2021 COPD Hypertension Anemia of chronic disease Patient admitted to the medical floor and treated with IV antibiotics. Patient had acute metabolic encephalopathy secondary to sepsis, ESRD Also has b/l lower extremity wounds, large L abscess s/p I&D -wound was growing ESBL urine: ESBL as well blood cx: Yielded no growth Patient treated with IV merrem. Seen by infectious disease. ESBL E. coli noted to be sensitive to Bactrim. Antibiotics changed to oral Bactrim s/p I&D of LLE abscess on 06/13; wet-to-dry dressing changes for wound care recommended Nephrology followed and ordered routine hemodialysis. Patient seen by PT and skilled rehab recommended given multiple falls at home. Patient agrees to go to skilled rehab. Patient deemed stable for discharge. Vital Signs/Physical Exam: Temp Pulse Resp BP Pulse Ox 97.0 F 68 16 124/58 L 96 06/19/21 12:00 06/19/21 12:00 06/19/21 12:00 06/19/21 12:00 06/19/21 12:00 General: Alert, In no apparent distress HEENT: Mucous membr. moist/pink Neck: JVD not distended Respiratory: Clear to auscultation bilaterally, Normal air movement Cardiovascular: Regular rate/rhythm, Normal S1 S2, Edema (Bilateral legs) Gastrointestinal: Soft and benign, Non-distended, No tenderness Musculoskeletal: No swelling Integumentary: Other (Multiple wounds on bilateral legs) Neurological: Normal strength at 5/5 x4 extr Laboratory Data at Discharge: WBC 10.50 K/uL (4.3-10.9) 06/19/21 06:00 Hgb 9.6 g/dL (12.0-15.0) L 06/19/21 06:00 Hct 29.6 % (36.0-45.0) L 06/19/21 06:00 Plt Count 115 K/uL (152-406) L 06/19/21 06:00 Sodium 134 mmol/L (136-145) L 06/19/21 06:00 Potassium 4.9 mmol/L (3.5-5.1) 06/19/21 06:00 BUN 26 mg/dL (7-18) H 06/19/21 06:00 Creatinine 4.13 mg/dL (0.55-1.3) H 06/19/21 06:00 Glucose 80 mg/dL (74-106) 06/19/21 06:00 Phosphorus 3.4 mg/dL (2.5-4.9) 06/19/21 06:00 Magnesium 1.7 mg/dL (1.8-2.4) L 06/19/21 06:00 Total Bilirubin 0.5 mg/dL (0.2-1.0) 06/14/21 03:47 AST 14 U/L (15-37) L 06/14/21 03:47 ALT < 6 U/L (12-78) L 06/14/21 03:47 Alkaline Phosphatase 244 U/L (45-117) H 06/14/21 03:47 Home Medications: Aspirin 81 mg PO DAILY 06/13/20 Clopidogrel Bisulfate [Plavix*] 75 mg PO DAILY 06/13/20 Gabapentin [Neurontin*] 100 mg PO BID 06/14/20 Sevelamer Carbonate [Renvela*] 2 tab PO TIDWM 12/06/20 Atorvastatin Calcium [Lipitor] 40 mg OP BEDTIME 03/26/21 Isosorbide Dinitrate 2 tab PO DAILY 03/26/21 Allopurinol 100 mg PO BID 06/12/21 Budesonide [Budesonide Dr] 3 mg NEB BID 06/12/21 Bumetanide 2 mg PO ONCE 06/12/21 Dicyclomine [Bentyl*] 10 mg PO Q6H 06/12/21 Ferrous Sulfate 325 mg PO ONCE 06/12/21 Fluticasone [Flovent Hfa 110*] 2 puff IN BID 06/12/21 Collagenase [Santyl Ointment*] 1 appl TOP DAILY tube 06/19/21 Cyanoco/FA/Pyri [Folbic*] 1 tab PO DAILY tab 06/19/21 Diphenhydramine [Benadryl*] 12.5 mg PO Q12H PRN tab 06/19/21 Epoetin [Retacrit] 4,000 unit IV EVERY HD vial 06/19/21 Heparin [Heparin 1,000 units/mL *] 5,000 unit IV EVERY HD PRN vial 06/19/21 Hydrocodone 5/APAP 325 [[place] 5/325*] 1 tab PO Q6H PRN #16 tab 06/19/21 Medihoney [Medihoney Woundcare Gel*] 1 appl TOP DAILY tube 06/19/21 Nutritional Supplement/Fiber [Ensure Plant-Based Protein Vanilla] 250 ml PO BID can 06/19/21 Smz./Tmp. [Bactrim Ds 800 MG/160 MG*] 1 tab PO BEDTIME #7 tab 06/19/21 New Medications: Hydrocodone 5/APAP 325 [[place] 5/325*] 1 tab PO Q6H PRN #16 tab PRN Reason: Pain Scale 5-7 (Moderate) Diet: Renal Activity: Fall precautions Followup: Unknown,U [Primary Care Provider] - Mukesh Meadows MD [ACTIVE - CAN ADMIT] - 1 Week (1 week at the [facility]ound care center) Time spent managing pt's care (in minutes): 38
[2021-06-19] MEDS: EPOETIN 4,000 UNIT/ML VIAL IV SCH (19:35)
[2021-06-19 21:03] VITALS: TEMP 97.6
[2021-06-19] MEDS: ATORVASTATIN 40 MG TAB PO SCH (22:48)
[2021-06-19] MEDS: SMZ./TMP. 800/160 MG TABLET PO SCH (22:49)
[2021-06-20 05:46] VITALS: BP 125/45
== END 2021-06-19 23:15 | DRG 853 ==
LOC: ER 13:01 → ERHOLD 18:39 → 2ND 21:46 → OBSVTOIN 06-12 12:24
PROVIDERS: ADMIT Hospitalist; ATTEND Hospitalist
PROC: 5A1D70Z Performance of Urinary Filtration, Intermittent, Less than 6 Hours Per Day (ICD-10-PCS; 2021-06-13)
PROC: 0JBP0ZZ Excision of Left Lower Leg Subcutaneous Tissue and Fascia, Open Approach (ICD-10-PCS; principal; 2021-06-13 11:15)
PROC: 5A1D70Z Performance of Urinary Filtration, Intermittent, Less than 6 Hours Per Day (ICD-10-PCS; 2021-06-15)
PROC: 5A1D70Z Performance of Urinary Filtration, Intermittent, Less than 6 Hours Per Day (ICD-10-PCS; 2021-06-19)
DX: A41.9 Sepsis, unspecified organism (principal); G93.41 Metabolic encephalopathy; N18.6 End stage renal disease; N39.0 Urinary tract infection, site not specified; L02.416 Cutaneous abscess of left lower limb; Z16.12 Extended spectrum beta lactamase (ESBL) resistance; I13.2 Hypertensive heart and chronic kidney disease with heart failure and with stage 5 chronic kidney disease, or end stage renal disease; I50.42 Chronic combined systolic (congestive) and diastolic (congestive) heart failure; L03.116 Cellulitis of left lower limb; R65.20 Severe sepsis without septic shock; B96.20 Unspecified Escherichia coli [E. coli] as the cause of diseases classified elsewhere; E11.649 Type 2 diabetes mellitus with hypoglycemia without coma; E11.22 Type 2 diabetes mellitus with diabetic chronic kidney disease; Z99.2 Dependence on renal dialysis; J44.9 Chronic obstructive pulmonary disease, unspecified; S81.811D Laceration without foreign body, right lower leg, subsequent encounter; S01.81XA Laceration without foreign body of other part of head, initial encounter; I25.10 Atherosclerotic heart disease of native coronary artery without angina pectoris; I73.9 Peripheral vascular disease, unspecified; Z91.81 History of falling; E88.09 Other disorders of plasma-protein metabolism, not elsewhere classified; D63.1 Anemia in chronic kidney disease; N25.0 Renal osteodystrophy; I87.8 Other specified disorders of veins; Z91.19 Patient's noncompliance with other medical treatment and regimen; Z89.412 Acquired absence of left great toe; Z90.710 Acquired absence of both cervix and uterus; Z90.49 Acquired absence of other specified parts of digestive tract; Z20.822 Contact with and (suspected) exposure to COVID-19; Z95.1 Presence of aortocoronary bypass graft; Z86.11 Personal history of tuberculosis
CPT/HCPCS: 0240U; 36415; 70450; 71045; 73701; 80048; 80053; 80069; 81003; 81015; 82947; 83735; 84145; 84484; 85025; 85027; 86140; 86317; 86704; 86706; 86803; 87040; 87070; 87075; 87077; 87086; 87088; 87185; 87186; 87205; 87340; 88304; 90935; 93005; 96372; 97110; 97161; 97530; 99251; 99285; G0378; J1610; J1644; J2405; J2704; J3010; J3475; J3590; J7040; Q5105; Q9967; U0003

== ENCOUNTER 2021-06-29 12:19 | Emergency (ER) | payer OTHER ==
[~2021-06-29 12:19] MED LIST: WATER FOR INJ,STERILE 10 ML ONE
--- OUTSIDE RECORDS SUMMARY | 2021-06-29 12:32 | XMS REPORT | Continuity of Care Document ---
:1955 Author Organization [facility] t Address 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 [facility] use of use of Memoria insulin insulin l Outpati ent Clinics History of History of Problem Active [facility] stroke stroke [facility] 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[address] [facility] diabetes diabetes [facility] - mellitus mellitus Memori a with with l hyperglyce hyperglyce Ou tpati rc cr ent Clinics 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2 [...] in HCl Reaction [facility] - [facility] Nitrogly Adverse Active vomiting [facility] cerin Reaction [facility] Morphine Adverse Active headache, [facility] Sulfate Reaction breathing [facility] - [facility] l [facility] Clinics Clindamy Adverse Active vomiting [facility]ley HCl Reaction [facility] NO KNOWN Drug Active [facility]ERGIE Class ity of [facility] Family History Family Member Diagnosis Comments Start Date Stop Date Source Natural father COPD [facility] Natural father Cancer [facility] Natural father Hypertension [facility] Natural mother No Known Problem [facility] Natural sister Asthma [facility] Lay [...] 2017-06-10 KATHRYN Pedro - pack-years 00:00:00 00:00:00 [facility] Tobacco use and 2017-06-10 2017-06-[address] Janna kes - exposure 00:00:00 00:00:00 [facility] History of tobacco 2017-05-[address] [facility] - use 00:00:00 [facility] Sex Ass[birth year] KATHRYN Mac kes - 00:00:00 00:00:00 [facility] Smoking Status Start Date Stop Date Source Former smoker 2017-06-10 00:00:00 2017-06-10 00:00:00 [facility] L rust - [facility] Medications Ordered Filled Start Stop Current Ordering Indication Dosage Frequency Signature Comments Components Source Medication Medication Date Date Medication? Clinician (SIG) Name Name mupirocin 2019-03 Yes QD Apply [facility] (BACTROBAN) 0-03 topically Lay es - 2 % 10:49: daily. Medical ointment 00 [place] collagenase 2019-03 Yes QD Apply [facility] (SANTYL) 0-03 topically [facility] - 250 units/g 10:49: daily. Medi marilin ointment 00 [place] bumetanide 2019-03 Yes 2mg [id number] Take [address] (BUMEX) 2 0-03 [id number] by mouth 3 [facility] - MG tablet [...] ointment 00 Center bumetanide 2019-03 Yes 2mg Q.[id number] Take [address] (BUMEX) 2 0-03 [id number] by mouth 3 [facility] - MG tablet [...] 2 % 10:49: daily. Medical ointment 00 [place] collagenase 2019-03 Yes QD Apply [facility] (SANTYL) 0-03 topically [facility] - 250 units/g 10:49: daily. Medi marilin ointment 00 [place] bumetanide 2019-03 Yes 2mg Q.[id number] Take [address] (BUMEX) 2 0-03 [id number] by mouth 3 [facility] - MG tablet [...] units/g 10:49: daily. Medi marilin ointment 00 [place] bumetanide 2019-03 Yes 2mg Q.[id number] Take [address] (BUMEX) 2 0-03 [id number] by mouth 3 [facility] - MG tablet [...] MG tablet 10:49: daily. Medica l 00 [place] ferrous 2019-03 Yes 325mg Take 325 [facility] [...] units/g 10:49: daily. Medi marilin ointment 00 [place] bumetanide 2019-03 Yes 2mg Q.[id number] Take [address] (BUMEX) 2 0-03 [id number] by mouth 3 [facility] - MG tablet [...] - MOUTH Memoria EVERYDAY l AT BEDTIME [facility] Isosorbide Isosorbide Yes Franki TAKE [address] [facility] Mononitrate Mononitrate Jas TABLET BY [facility] - ER ER MOUTH Memoria EVERY DAY l [facility] NIFEdipine NIFEdipine Yes Franki TAKE [address] [facility] ER ER Jas TABLET BY [facility] - MOUTH Memoria EVERY DAY l [facility]ics BuPROPion BuPROPion Yes Franki TAKE [address] HCl HCl Jas TABLET BY [facility] - MOUTH Memoria EVERY DAY l [facility] Acetaminoph Acetaminoph Yes [...] cm Heart rate 2020-01-01 08:41:00 60 /min [facility] Respiratory rate 2020-01-01 08:41:00 18 /min [facility] Oxygen saturation in 2020-01-01 08:41:00 100 /min [facility] - Arterial blood by Medical Ce nter Pulse oximetry Systolic blood 2020-01-01 08:32:00 162 mm[Hg] [facility] Diastolic blood 2020-01-01 08:32:00 73 mm[Hg] [facility] Body temperature 2020-01-01 07:41:00 36.56 Deanne [facility] Body weight 2019-12-30 04:28:00 78.2 kg [facility] BMI 2019-12-30 04:28:00 27.00 kg/m2 [facility] Body height 2019-12-25 21:05:00 170.2 cm [facility] Procedures Procedure Date / Time Performed Performing Clinician [facility] e REPORT OF PROCEDURE - 2020-01-05 08:40:02 Provider, [facility] ENDOSCOPY SCAN [facility] RHYTHM STRIP - SCAN 2020-01-05 08:31:43 Provider, [facility] RHYTHM STRIP - SCAN 2020-01-05 08:31:42 Provider, [facility] RHYTHM STRIP - SCAN 2020-01-05 08:31:40 Provider, [facility] CARDIAC CATH REPORT - 2020-01-05 08:31:15 Provider, [facility] CARDIAC CATH REPORT - 2020-01-05 08:31:13 Provider, [facility] POCT-GLUCOSE METER 2020-01-01 06:33:00 Pat Mohamud [facility] CBC W/PLT COUNT & AUTO 2020-01-01 05:37:00 [facility]PRE[facility]ABOLIC 2020-01-01 05:37:00 [place] [facility] POCT-GLUCOSE METER 2019-12-31 20:50:00 [facility] POCT-GLUCOSE METER 2019-12-31 18:00:00 Pat Mohamud [facility] POCT-GLUCOSE METER 2019-12-31 11:42:00 [facility] POCT-GLUCOSE METER 2019-12-31 06:29:00 [facility] CBC W/PLT COUNT & AUTO 2019-12-31 06:05:00 [place] [facility] S [facility] COMPREHENSIVE METABOLIC 2019-12-31 06:05:00 [place] [facility] MAGNESIUM 2019-12-31 06:05:00 Pat Mohamud [facility] POCT-GLUCOSE METER 2019-12-30 20:13:00 Cade Evensruel [facility] POCT-GLUCOSE METER 2019-12-30 16:26:00 Cade Pat [facility] SURGICALLY OBTAINED 2019-12-30 13:59:46 Cade Evensruel [facility] - CULTURE + GRAM STAIN Medical Matthew ter ANAEROBIC CULTURE 2019-12-30 13:59:46 Cade Evensruel [facility] SURGICALLY OBTAINED 2019-12-30 13:54:56 Pat Mohamud [facility] - CULTURE + GRAM STAIN Medical [facility] ter ANAEROBIC CULTURE 2019-12-30 13:54:56 Cade Evensruel [facility] TISSUE EXAM 2019-12-30 13:38:00 Tala Santacruz [facility] I&D,BONE FOOT 2019-12-30 13:11:00 Tala Santacruz [facility] POCT-GLUCOSE METER 2019-12-30 11:39:00 [facility] ECG 12-LEAD 2019-12-30 10:53:36 Unknown, Hl7 [facility] POCT-GLUCOSE METER 2019-12-30 05:39:00 Pat Mohamud [facility] SARS-COV2/RT-PCR ([facility] & 2019-12-30 05:11:00 [facility] CBC W/PLT COUNT & AUTO 2019-12-30 05:09:00 Lily Echavarria [facility] S t [facility] COMPREHENSIVE METABOLIC 2019-12-30 05:09:00 Lily Echavarria [facility] POCT-GLUCOSE METER 2019-12-29 21:09:00 [facility] PO[facility]SE METER 2019-12-29 11:10:00 [facility] HEMODIALYSIS INPATIENT 2019-12-29 08:12:17 Brandie Khan [facility] POCT-GLUCOSE METER 2019-12-29 06:10:00 [facility] CBC W/PLT COUNT & AUTO 2019-12-29 05:50:00 [place] [facility] COMPREHENSIVE METABOLIC 2019-12-29 05:50:00 [facility] PO[facility]UCOSE METER 2019-12-28 20:37:00 [facility] POCT-GLUCOSE METER 2019-12-28 17:38:00 [facility] POCT-GLUCOSE METER 2019-12-28 13:12:00 [facility] POCT-GLUCOSE METER 2019-12-28 05:43:00 [facility] CBC W/PLT COUNT & AUTO 2019-12-28 04:41:00 [place] [facility] COMPREHENSIVE METABOLIC 2019-12-28 04:41:00 [place] [facility] ABD AO & LOWER EXT 2019-12-28 02:30:00 Sakina Tamayo [facility] ANGIO/ [facility] POCT-GLUCOSE METER 2019-12-27 20:32:00 [facility] MR LOWER EXTREMITY 2019-12-27 16:30:00 [place] [facility] - WITHOUT IV CONTRAST [facility] POCT-GLUCOSE METER 2019-12-27 14:06:00 [facility] WOUND CULTURE + GRAM 2019-12-27 12:02:00 Annia Delgado CH, I [facility] POCT-GLUCOSE METER 2019-12-27 06:44:00 [facility] POCT-GLUCOSE METER 2019-12-27 05:49:00 [facility] CBC W/PLT COUNT & AUTO 2019-12-27 05:05:00 Lily Echavarria [facility] COMPREHENSIVE METABOLIC 2019-12-27 05:05:00 [place] [facility] HEMODIALYSIS INPATIENT 2019-12-27 00:31:18 Brandie Khan [facility] POCT-GLUCOSE METER 2019-12-26 20:51:00 Pat Mohamud [facility] TRANSFUSION SERVICE 2019-12-26 18:02:44 Provider [facility] REPORT - SCAN Scanning [facility] POCT-GLUCOSE METER 2019-12-26 16:42:00 [facility] CTA AAA AND RUNOFF 2019-12-26 15:27:00 Sakina Tamayo [facility] POCT-GLUCOSE METER 2019-12-26 11:59:00 [facility] POCT-GLUCOSE METER 2019-12-26 06:09:00 [facility] CBC W/PLT COUNT & AUTO 2019-12-26 04:36:00 [place] [facility] COMPREHENSIVE METABOLIC 2019-12-26 04:36:00 [place] [facility] PREPARE LEUKO-REDUCED RBC 2019-12-25 23:54:00 Brandie Khan [facility] POCT-GLUCOSE METER 2019-12-25 20:51:00 [facility] TRANSFUSION SERVICE 2019-12-25 18:04:44 Provider, [facility] REPORT SCAN [facility] POCT-GLUCOSE METER 2019-12-25 17:01:00 [facility] POCT-GLUCOSE METER 2019-12-25 11:25:00 [facility] CBC W/PLT COUNT & AUTO 2019-12-25 05:59:00 [place] [facility] COMPREHENSIVE METABOLIC 2019-12-25 05:59:00 [place] [facility] POCT-GLUCOSE METER 2019-12-25 05:58:00 Pat Mohamud [facility] TRANSFUSE LEUKO-REDUCED 2019-12-24 19:06:17 Brandie Khan [facility] RED BLOOD CELLS [facility] POCT-GLUCOSE METER 2019-12-24 16:15:00 [facility]H, MANUAL 2019-12-24 08:25:[address] [facility] POCT-GLUCOSE METER 2019-12-24 06:11:00 [facility] TYPE AND SCREEN, 2019-12-24 06:08:00 Brandie Khan [facility] es - AUTOMATED [facility] CBC W/PLT COUNT & AUTO 2019-12-24 05:51:00 Lily Echavarria [facility] DIFFERENTIAL [facility] COMPREHENSIVE METABOLIC 2019-12-24 05:51:00 [place] [facility] POCT-GLUCOSE METER 2019-12-23 21:23:00 [facility] POCT-GLUCOSE METER 2019-12-23 16:42:00 [facility] MR LOWER EXTREMITY JOINT 2019-12-23 15:34:00 Tala Santacruz [facility] ONLY WITHOUT IV CONTRAST [facility] LEFT MR BRAIN WITHOUT IV 2019-12-23 15:34:00 Lily Echavarria [facility] L ukes - CONTRAST [facility] POCT-GLUCOSE METER 2019-12-23 11:16:00 [facility] ARTERIAL DOPPLER LEGS 2019-12-23 09:38:00 Tala Santacruz [facility] AMMONIA 2019-12-23 04:05:00 Mariela Carrasco [facility] CBC W/PLT COUNT & AUTO 2019-12-23 04:00:00 JerichoLily [facility] DIFFERENTIAL [facility] COMPREHENSIVE METABOLIC 2019-12-23 04:00:00 [place] [facility] PANEL [facility] SARS-COV2/RT-PCR ([facility] & 2019-12-23 03:59:00 CadePat diaz [facility] POCT-GLUCOSE METER 2019-12-22 20:34:00 [facility]ade [facility] POCT-GLUCOSE METER 2019-12-22 16:43:00 Cade [facility] POCT-GLUCOSE METER 2019-12-22 11:31:00 Cade [facility] POCT-GLUCOSE METER 2019-12-22 06:30:00 [facility] CBC W/PLT COUNT & AUTO 2019-12-22 05:14:00 [place] [facility] COMPREHENSIVE METABOLIC 2019-12-22 05:14:00 [place] [facility] POCT-GLUCOSE METER 2019-12-21 20:26:00 Cade [facility] POCT-GLUCOSE METER 2019-12-21 17:22:00 [facility] POCT-GLUCOSE METER 2019-12-21 12:35:00 Cade Pat [facility] POCT-GLUCOSE METER 2019-12-21 07:20:00 [facility] POCT-GLUCOSE METER 2019-12-21 05:52:00 [facility] C-REACTIVE PROTEIN 2019-12-21 04:39:[address] [facility] CBC W/PLT COUNT & AUTO 2019-12-21 04:39:00 [place] [facility] COMPREHENSIVE METABOLIC 2019-12-21 04:39:00 [place] [facility] US ABDOMEN COMPLETE 2019-12-20 21:17:00 Sakina Chen [facility] POCT-GLUCOSE METER 2019-12-20 20:23:00 Evens Mohamudruel [facility] POCT-GLUCOSE METER 2019-12-20 17:31:00 Pat Mohamud [facility] CT BRAIN WITHOUT IV 2019-12-20 16:04:00 [facility] AMMONIA 2019-12-20 14:41:00 [place] [facility] BLOOD GAS, ARTERIAL 2019-12-20 14:28:00 [place] [facility] XR FOOT 2 VIEWS RIGHT 2019-12-20 11:55:00 Annia Delgado [facility] POCT-GLUCOSE METER 2019-12-20 11:28:00 Pat Moh[facility]ud [facility] POCT-GLUCOSE METER 2019-12-20 06:20:00 Pat Mohamud [facility] OCCULT BLOOD, STOOL 2019-12-20 06:19:00 April Sakina Carrillo [facility] IRON, TIBC, % SAT. 2019-12-20 05:06:00 AprilSakina [facility] (WITHOUT FERRITIN) [facility] VITAMIN B12 AND FOLATE 2019-12-20 05:06:00 AprilSakina [facility] RETICULOCYTE COUNT 2019-12-20 05:06:00 [facility] Sakina [facility] HAPTOGLOBIN 2019-12-20 05:06:00 [facility] [place] Carrillo [facility] TSH/FREE T4 IF INDICATED 2019-12-20 05:06:00 AprilSakinaba [facility] FERRITIN 2019-12-20 05:06:00 April [place] Carrillo [facility] ANTI-NUCLEAR ANTIBODY 2019-12-20 05:06:00 Sakina Chen [facility] (ROGER) [facility] KAPPA / LAMBDA LIGHT 2019-12-20 05:06:00 Sakina Chen [facility] PROTEIN ELECTROPHORESIS, 2019-12-20 05:06:[address] [facility] PERIPHERAL BLOOD SMEAR - 2019-12-20 05:06:00 Sakina Chen [facility] - PATHOLOGIST REVIEW Medical Cente r CBC W/PLT COUNT & AUTO 2019-12-20 05:06:00 Marcial Chapa [facility] COMPREHENSIVE METABOLIC 2019-12-20 05:06:00 Marcial Chapa [facility] T4, FREE 2019-12-20 05:06:00 Sakina Chen [facility] ROGER TITER AND PATTERN 2019-12-20 05:06:00 Sakina Chen [facility] PT/APTT 2019-12-20 05:06:00 Sakina Chen [facility] FIBRINOGEN 2019-12-20 05:06:00 April [place] Carrillo [facility] D-DIMER 2019-12-20 05:06:00 April [place] Carrillo [facility] POCT-GLUCOSE METER 2019-12-19 20:35:00 [facility] POCT-GLUCOSE METER 2019-12-19 16:06:00 [facility] HEMODIALYSIS INPATIENT 2019-12-19 16:02:09 Sharri Fernando [facility] CBC W/PLT COUNT & AUTO 2019-12-19 05:35:00 Marcial Chapa [facility] BASIC METABOLIC PANEL (7) 2019-12-19 05:35:00 Marcial Chapa [facility] LACTATE DEHYDROGENASE 2019-12-19 05:35:00 Sakina Chen [facility] (LDH) [facility] POCT-GLUCOSE METER 2019-12-19 05:24:00 Pat [facility]ud [facility] POCT-GLUCOSE METER 2019-12-18 21:35:00 Pat [facility]ud [facility] POCT-GLUCOSE METER 2019-12-18 16:05:00 Pat Mohamud [facility] POCT-GLUCOSE METER 2019-12-18 07:45:00 Cade Pat [facility] POCT-GLUCOSE METER 2019-12-18 06:14:00 [facility] POCT-GLUCOSE METER 2019-12-17 21:44:00 [facility]ens [facility] POCT-GLUCOSE METER 2019-12-17 17:52:00 [facility] POCT-GLUCOSE METER 2019-12-17 12:22:00 [facility] HEMODIALYSIS INPATIENT 2019-12-17 10:33:08 Bill [facility] POCT-GLUCOSE METER 2019-12-17 06:18:00 [facility] CBC W/PLT COUNT & AUTO 2019-12-17 04:14:00 Marcial Chapa [facility] COMPREHENSIVE METABOLIC 2019-12-17 04:13:00 Marcial Chapa [facility] POCT-GLUCOSE METER 2019-12-16 20:55:00 [facility] POCT-GLUCOSE METER 2019-12-16 18:24:00 Pat Mohamud [facility] HEPATITIS B SURFACE 2019-12-16 16:02:00 [facility] ANTIBODY [facility] HEPATITIS B SURFACE 2019-12-16 16:02:00 [facility] ANTIGEN [facility] HEPATITIS C ANTIBODY 2019-12-16 16:02:00 [facility] HEPATITIS B CORE 2019-12-16 16:02:00 [facility] es - ANTIBODY, TOTAL [facility] POCT-GLUCOSE METER 2019-12-16 14:47:00 Pat Mohamud [facility] IR TUNNELED CATHETER 2019-12-16 14:26:00 Sharri Fernando [facility] INSERTION [facility] HEMODIALYSIS INPATIENT 2019-12-16 12:37:39 Brandie Khan [facility] POCT-GLUCOSE METER 2019-12-16 11:01:00 Pat Mohamud [facility] XR CHEST 1 VIEW PORTABLE 2019-12-16 05:55:00 Marcial Chapa ra [facility] - / BEDSIDE [facility] POCT-GLUCOSE METER 2019-12-16 05:51:00 Pat Mohamud [facility] CBC W/PLT COUNT & AUTO 2019-12-16 04:08:00 Marcial Chapa [facility] DIFFERENTIAL [facility] BASIC METABOLIC PANEL (7) 2019-12-16 04:08:00 Marcial Chapa [facility] PROTHROMBIN TIME/INR 2019-12-16 04:08:00 Marcial Chapa [facility] SARS-COV2/RT-PCR ([facility] & 2019-12-16 01:45:00 Pat Mohamud [facility] - REF LABS) [facility] Plan of Care Planned Activity Planned Date Details Comments Source Future Scheduled 2020-12-[address] [facility] [facility] - Test 00:00:00 [facility] (regime/therapy) [code = 261041592] Future Scheduled 2020-12-[address] [facility] - Test 00:00:00 [facility] (regime/therapy) [code = 216686250] Future Scheduled 2020-12-[address] [facility] - Test 00:00:00 [facility] (regime/therapy) [code = 318579521] Future Scheduled 2020-12-[address] [facility] - Test 00:00:00 [facility] (regime/therapy) [code = 515191239] Future Scheduled 2020-12-[address] [facility] - Test 00:00:00 [facility] (regime/therapy) [code = 042188274] Future Scheduled 2020-12-[address] [facility] - Test 00:00:00 malignant neoplasm of [facility] Center colon (procedure) [code = 614512648] Future Scheduled 2020-12-[address] [facility] - Test 00:00:00 [facility] [code = 917225234] Future Scheduled 2020-12-[address] [facility] - Test 00:00:00 malignant neoplasm of [facility] Center colon (procedure) [code = 650092794] Future Scheduled 2020-12-[address] [address] [facility] - Test 00:00:00 [facility] [code = 628872381] Future Scheduled 2020-12-[address] - Test 00:00:00 [facility] [code = 634964838] Future Scheduled 2020-11-29 INFLUENZA VACCINE (#1) C [...] [facility] - Test 00:00:00 (1 of 1 [facility] [id number] PCV13) [code = PNEUMOCOCCAL 65+ YRS (1 of 1 - [id number]_Rhpemff PCV13)] Future Scheduled 2020 PNEUMOCOCCAL 65+ [facility] - Test 00:00:00 (1 of 1 [facility] [id number]_Skslazf PCV13) [code = PNEUMOCOCCAL 65+ YRS (1 of 1 - [id number]_Ldcxuna PCV13)] Future Scheduled 2020 PNEUMOCOCCAL 65+ Y[facility] - Test 00:00:00 (1 of 1 [facility] [id number]_Mnginex PCV13) [code = PNEUMOCOCCAL 65+ YRS (1 of 1 - [id number]_Yztwxau PCV13)] Future Scheduled 2020 PNEUMOCOCCAL 65+ Y[facility] - Test 00:00:00 (1 of 1 [facility] [id number]_Vddnpub PCV13) [code = PNEUMOCOCCAL 65+ YRS (1 of 1 - JWHT21_Pamajii PCV13)] Future Scheduled 2020 PNEUMOCOCCAL 65+ Y[facility] - Test 00:00:00 (1 of 1 [facility] [id number]_Miulkhp PCV13) [code = PNEUMOCOCCAL 65+ YRS (1 of 1 - REXW16_Pqlszpu PCV13)] Future Scheduled 2017-11-[address] [facility]anna kes - Test 00:00:00 [facility] (procedure) [code = 52878960] Future Scheduled 2017-11-[address] [facility]anna [facility] - Test 00:00:00 [facility] (procedure) [code = 76101973] Future Scheduled 2017-11-[address] [facility] - Test 00:00:00 [facility] (procedure) [code = 43899276] Future Scheduled 2017-11-[address] [facility] - Test 00:00:00 [facility] (procedure) [code = 56546536] Future Scheduled 2017-11-[address] [facility] - Test 00:00:00 [facility] (procedure) [code = 66399522] Future Scheduled 2005 SHINGLES VACCINES (1 [facility] [...] Test 00:00:00 (procedure) [code = Medical Center 96699370] Future Scheduled [address] - Test 00:00:00 (procedure) [code = Medical Center 79098113] Future Scheduled [address] [facility] - Test 00:00:00 (procedure) [code = Medical Center 58664466] Future Scheduled [address] [facility] - Test 00:00:00 (procedure) [code = Medical Center 76395057] Future Scheduled [address] [facility] - Test 00:00:00 (procedure) [code = [facility] 58066064] Future Scheduled [address] [facility] - Test 00:00:00 malignant neoplasm of Medica l Center cervix (procedure) [code = 559186804] Future Scheduled [address] [facility] cervix (procedure) [code = 931241015] Future Scheduled [address] [facility] 00:[facility]:00 [facility] cervix (procedure) [code = 398335831] Future Scheduled [address] [facility] 00:00:00 [facility] cervix (procedure) [code = 961900550] Future Scheduled [address] [facility] 00:00:00 [facility] cervix (procedure) [code = 008806592] Future Scheduled 1974 DTAP/TDAP/TD VACCINES [facility] [...] 00:00:00 [facility] (procedure) [facility] [code = 695888193] Future Scheduled [address]IC EYE EXAM [facility] Test 00:00:00 [code = DIABETIC EYE [facility] EX[facility]] Future Scheduled 1965 Urine screening for [facility] Test 00:00:00 protein (procedure) [facility] [code = 062435270] Future Scheduled 1965 DIABETIC EYE EXAM [facility] Test 00:00:00 [code = DIABETIC EYE [facility] EX[facility]] Future Scheduled 1965 Urine screening for [facility] Test 00:00:00 protein (procedure) [facility] [code = 370824903] Future Scheduled 1965 DIABETIC EYE EXAM [facility] Test 00:00:00 [code = DIABETIC EYE [facility] EXAM] Future Scheduled 1965 Urine screening for [facility] Test 00:00:00 protein (procedure) [facility] [code = 385037330] Future Scheduled 1965 DIABETIC EYE EXAM [facility] Test 00:00:00 [code = DIABETIC EYE [facility] EXAM] Future Scheduled 1965 Urine screening for [facility] Test 00:00:00 protein (procedure) [facility] [code = 024098514] Future Scheduled [address] [facility] 00[facility] [code = 404223685] Future Scheduled [address] [facility] 00[facility]00[facility]00 [facility] [code = 982975633] Future Scheduled [address] [facility] 00[facility]00[facility] breast (procedure) [code = 950012656] Future Scheduled [address] [facility] 00:00:00 [facility] breast (procedure) [code = 842060218] Future Scheduled [address] [facility] 00:00:00 [facility] breast (procedure) [code = 917413866] Encounters Start End Encounter Admission Attending Care Care Encounter Source Date/Time Date/Time Type Type Clinicians Facility Department ID 2019-12-16 Inpatient UR PAT MOHAMUD [facility] Nephrology [id number] [facility] 00:14:00 2020-03-28 2020-03-29 Emergency Clay Fine [facility] [id number] 15:50:00 20:31:00 Maureen Terrazas [id number] [place] [id number] [place] [id number] 2020-03-28 2020-03-28 Emergency X BABATUNDE [facility] ERT [id number] [facility] 15:50:00 15:50:00 CLAY watson [facility] 2019-12-16 2020-01-01 Hospital UR Pat Mohamud [facility] [id number] 00:14[facility] 10:00:00 En[facility] 2019-12-30 2019-12-30 Anesthesia Rhiannon Underwood [facility] [id number] [facility] 13:11:00 14:14:00 Event Jamin Kearns [facility] 2019-12-30 2019-12-30 Surgery Neeta, [facility] [id number] 12:30:00 13:19:00 Tala [facility] 2019-12-28 2019-12-28 Surgery Belkis, [facility] [id number] 12:00:00 12:54:00 Sakina Higgins [facility] 2019-12-17 2019-12-17 Travel [facility] [id number] [facility] 00:[facility]00 [facility] 2019-12-16 2019-12-16 Orders Monica, [facility] [id number] 00:00:00 00:00:00 Only [facility] 2018-11-17 2018-11-17 [facility] [id number] 11:30:00 11:30:00 [facility] 2018-10-06 2018-10-06 [facility] [id number] 16:14:00 16:14:00 [facility] 2018-09-28 2018-09-28 [facility] [id number] 10:30:00 10:30:00 [facility] 2017-09-22 2017-09-22 Outpatient [facility]Y [facility]OL[facility] [id number] [facility] 00:00:00 00:00:00 BIJI Results Test Description Test Time Test Comments Results Result Comments Source HEPATITIS B SURFACE ANTIBODY 2021-06-12 22:39:53 Test Item Value Reference Range Interpretation Comme nts HEPATITIS B SURFACE ANTIBODY (BEAKER) (test code = 647) < mIU/mL <8.0 Occupational Therapy Assist ID - BSHEPATITIS B SURFACE [id number] 22:39:42 Test Item Value Reference Range Interpretation Comments HEPATITIS B SURFACE ANTIGEN (2) Nonreactive Nonreactive (BEAKER) (test code = 2585) Specimen is considered negative for HBsAg.HEPATITIS C [id number] 22:39:42 Test Item Value Reference Range Interpretation Comments HEPATITIS C ANTIBODY (BEAKER) Nonreactive Nonreactive (test code = 367) Occupational Therapy Assist ID - BSHEPATITIS B CORE ANTIBODY, [id number] 22:39:42 Test Item Value Reference Range Interpretation Comments HEPATITIS B CORE TOTAL ANTIBODY Nonreactive Nonreactive (BEAKER) (test code = 497) Occupational Therapy Assist ID - BSANAEROBIC [id number] 10:26:00 Test Item Value Reference Range Interpretation Comments CULTURE (BEAKER) (test No anaerobes isolated code = 1095) Tissue [id number] 10:21:00 Test Item Value Reference Range Interpretation Comments Case Report (test code Surgical Pathology = 104) Report Case: [id number] Authorizing Provider: Tala Santacruz DPM Collected: 12/30/2019 01:38 PM Ordering Location: [address] Med/Surg Received: 12/31/2019 06:52 AM Pathologist: Jovita Griffith MD Specimens: A) - Soft Tissue, Other, left 5th proximal phalanx B) - Metatarsal, Left, left 5th metatarsal DIAGNOSIS (test code = [id number] 3220) FuZzEwMzNcZnRuYmpcdWMx KXhlscThHSpks6KhE4PdVq AwMFxhbnNpXGRlZmxhbmcx DIPfZGV8wxNlOHLoBDzzUP CyPOwzMk3kcDNhuCeiGgPk CWZcn9xdozAEfpsecZb9o7 uoQNPcJcJ0uHQbKXaaA3wm kdPshUNwGRLzFGp1nL62XL BqwD1krHYfGOnfosRvGzJ3 YLcnPLDjCwA0CPDbyOFnRH FqH2baEVYvAMpzMDFmSTma iIFfUQO2xNtwc7T9eQHmqJ ZdeYiyDnUtSyEcAQAVl9Xp SUm0bFbjD2BuZKBgJzF9fQ QgUGFyYWdyYXBoIEZvbnQ7 dG62YRyeclU3sIJhc1Hdm6 9ss850sK2toGVmLOQ8SJXy XJCpbQRrCOUaORP1XUIlvG LvJ4e3LiMzdNMlO5O4SfQq lAHxT7L4NzNgvUKhF3V0Qe ReiVDwZKNofQEzTb5hoGJp tSYsyp5col87ILM9y6XokG klZNJ7DPM1VrYwYj9egMNb SNZhOT2pFkKsxCBhSIWwwz 81pOjwGZvdoyGhsX8xCkWr ZTZicRYoLHJaHM4hwZAsBR BigA3azdxnZIIeYqFcbquc GSOtsVyhzzOzXq7xpZtuBI E6OImfT3gcmV7kKuJ1YKyb J1hvnH9cPPe1RDylfHX3EH MsjZ1vXB6psbdkj7ymZtLa SD2mzgemg5tiXfBcHL5zgy w3d0zfFlJcEN6grxehe7hg NzIwXGhlYWRlcnkwXGZvb3 XamohrHTCfl6EcX2HfySlx A99uoNdmC06mJZYwzBhjyS 3fsGungX9nIhMgIvMrVQww bFxwbGFpblxmMVxmczIwXG uvmvfeSQXaNPasV8ogLoXp RYYduQwgBGbnv1NsUFIzML MhEcFvVO1xLm6SHBqoEYTN AZOBNFTKZZQOVv6LGS1ANG PSLTPRNZ9PLUOHZN6DV2k4 VKDdzbLdSKHbHGOKLM0nL5 hOZGLHLlEVVexLZF9DEXKK UlRJTEFHRSBXSVRIIFNVUl JYBS7AYC3AZVZPDXREKAYB RCBDSFJPTklDIElORkxBTU 1BVElPTlxwYXJccGFyIEIu IEJPTkUsIExFRlQgRklGVE ggTUVUQVRBUlNBTCwgQklP UFNZOlxwYXIgICAgLSBBQ1 VZEUUHV5SGE81BEIsKERoO IFxwYXIgICAgLSBTRVBBUk GROSOVKpTYFJVYZOKwF9Hc CdmZSa9SQ30PGMYTIRPTDX LBN1LJNNSCQGJEMVQBP0VT H8LhSM5GD9RUU3yRRGAMDU BHUkFOVUxBVElPTiBUSVNT UFRdSk7LXXTCXN4PHLAnfy 79SDY0RtQcq3X8XQZ1KPCi YNCjy0ecWVWkrBWaFdMzEn NcZnRuYmpcdWMxXGRlZmYw p1ycq943nFIoi4stBQMqKu M1yTFtXEXedEYiQ027VPJt NYosr2cxh6FuXHSwyTGno4 K5QYWFutoyeFh5vNyaI66t g9J0FjweX7nvBNEsQBOrL7 HgLP3iJSYgNuc5QTT2RWC4 GNTsQNLtW1RhQE5mAJTswG LpCTd0h1zdkKyuENKoNFR7 g6saSGmbbbCzCC2waq2sxP m3x3ikryOnPTKuUHXprHPK BBEhP6WjoSrzZg8omOp7nP mjUdkyNZB6Irx5TV8aui92 fpz5oGiuZNBzzfqtLvE5ND pdZIUaapvcXBx2HJkpTJUz kOP5HAYtgBEwI5RzBJUqXH 3gyda3RQX2LFevDAByKoL1 NDBcaGVhZGVyeTcyMFxmb2 63GKE5DvBpFP1sR4Jtx9E8 jY2kpYNhYYYqyPYrLhDrPJ Agnd4meCNjWOsal7EgJBV5 slX5qMFwuROwEYWqXnS3DD hzJS4ecf32NCCuGKQ1wd4l bGNccGdicmRyaGVhZFxwZ2 IkGWInx867EIGvV6NfGJBe l3Y0xtVkSiNzXJSghRD6hx Z4RUZxCY9uuivop5nqQWip DReoFEGspfT7caK2PCZrdP GhC5LvzS0yNLKwOH7glxad g4jrUCQ2RErlICRtFKK3Fw WhEGMmt8Icect9KsSom2Dl yYLvJLkgE68io575OZYwrl UvX6hzfSMkrphfsMFvjsej TWpujvD1TOLiNGneybchST VqHTqwI3cxJlVgEBPvkLej AOycy8KnUVCeFOYrTzSxvE PjMTMnExl1VYBhgKAkBOKu QrWxL5giymkvYwZFCAJld5 zjA2gnuSILdSVpD3FrPEft whPeSWniINegXTH3CFR3Hq 96LjM4XYDngy66 CPT Code(s) (test code l3hsaHTcEHOiaLVmFlMwGE = 3350) TzLBJks1hdUZBzhMEgIuYy MzNcZnRuYmpcdWMxXGRlZm Ajj5cot279oVBuj3rzLBLd EaN1aZIaLCYqdEZmX428f9 qny6tsvmPgyOY8VBMxPRB6 XOntleUcjkH2DFxmwVYtAa Q1VCeqoqOqRWyykdHvvlMm Evt9CSVpW186DIO6yQvbo1 smIPN7FXDuSJNdTtVaFh5s wWPoQ573BTMzUIWUTOWqjB n5ETGlqlTymgViqNEOh090 V043d3jpQXWufxPxjNeNzc wwx5zzF261SSMmcPOoiuIe PqDcMDNvpKIbrPU2IDCgMS 5ynnksSwKoTA8jcwjmCfRk KM4ocgs7DcBoGW4mnqcqDs FxKOzxLNJeqhpiCIAty5Tw ccfeOC1wV8Neg5J0sR1ifS ExKWEobZBlYcQiLSCbnz8d tRNvJPoeo7OzAFM0ncY7xE JmvJDtYIRpJX54Vbczs8Pm SzmbLQF6JUHymvPek1Cwb8 cySrZlpwNhR9aeU5IkQVHd AMOnCODdQrTwmzNyk1Dgn0 WwlCSvrMw2x8yrEDJfAIGa yBeak0asXVW9IIRgT1B4oI Qgq4aoDNfiRBPwcZG0evep NCzfFWTekaO4bcvdBMpbFW CqmKO6pqfdKBnoCRRmZxP3 ikdtCBrrLUHaIFT7XKjxc5 11YSK2DPpbXpzfZAvoJHDx bmNvbnRccGduZGVjXHBsYW luXHBsYWluXGYwXGZzMjRc yZnskXoilG3cNxOkPgXdBL byUY7yPFBlW4rhbFZlMLMa XPTzA8ipVgMjiC1qlXpkMB sjdbWcQC2BM6T8HKWtidO6 NECyNyT3YpesPJFjKZsoLW EgeDJccGFyfQ== CLINICAL HISTORY (test g3lstZInSIOqrYInGvSpPT code = 3356) RpNLLrv4gdVHGioTPwErVy MzNcZnRuYmpcdWMxXGRlZm Nxe6paq133sVYxd9fqADUq FlP7aKUeYKIlaEXsH124a5 dwp9vwtrSrkJM0AYBcQDZ6 DQzhbeQrkpO2KYjmeTCjBz A0ZBjsukMaXXxrzuOtksGz Clo3YDMyG648CFS9jBifq9 klPEQ0TZLuEQNjStWkRx8d nIVqQ849HORbTVUPZTEihE z6LOKsixPjxgLnbLKHs573 E948u8czYMRjmaQcgXyUgt qlq6snB097IFIpbBVgjzDm QgSsOLHgzMIzmOQ1UKBhRG 3dnlteZcHmOO8hlnxbLlHi PO9vfjp6FvBnWY5bbbmsHi NzFXgkBBHwewikFSUvh7Gr xeulZI7hI2Sgb7F6jV2blL QoETMoiBRzZlWbSVShhl2s uYCnIQxie9FtQSE2ezP5uN NmiPYqSQLnHB31Zvaxj8Xp BmhdXWR6UCUgdoSnh9Apw6 fwMkJhfwTyE2emG9EfWMPb LJJkUVEhLwSgpeZje4Poj8 SmdSLytMo1d8qhQSYmQDWk fUxfd3qtNOV2BQPsW3M5bQ Vzh4yhUHcjYONbgII0wheg DCaxTGRhspD5lkdxJGthBS AkjPI0qmghIJmhIXBtGuY3 jlbpJFzqJKFaQVA4XZwrc7 05VYX3NXsjJadbMIjfRSEc bmNvbnRccGduZGVjXHBsYW luXHBsYWluXGYwXGZzMjRc iVstfAvfhO7jPnZgJnUxEK omSF3pGYOcM8dxxZXqONGq PFHkC6mnAhTmjK9guZmlCY qrwyUoCQ1pxBQsyBvcpQl3 cYDtj8CrpODbhTX6uSjsuS Q1SUXksiJkaGnneJpfYNVs v5MoQxsqHEOrdaQyGIPaEQ RccGFyfQ== SPECIMEN SOURCE (test j8qrpQIpWWTvcOXlAuMuYF code = 3377) PmKRKop1ajJLAnxQDfJnYw MzNcZnRuYmpcdWMxXGRlZm Abg9coh091bPElf3ucWBAt OwP4pQBzQMExmHInW176p5 hka0ygsaIasSU4TWFxCOV0 APpladWwieN8QMdwmASgOt H1JIpvtjYoCRoxpjSyboAn Rwi5VZYwH468YSZ4oSzbe9 jdXPG9ERUvMTBnKsJqMx8w bQWrN241QGJqKLQVFHJfcQ i5IBKgayEiixQpfWEKt550 X815c6skZHYyhtJijVqFqg vrp1uoH046KHHflFOvvpBq YeQgEEFmbLCjaQC0FANwAQ 0gveokMyIuZP9mwdebSbZf AE0dxxz7HmHzQC4glezgPw UpLXqgYZNddfwmSRQxc2Dd nkxoMZ7iO4Lbk1T9tW8pxJ EeYCQakPCkGsQwTGIvoh5c lQOdHZjso3RqPWB9gpJ2qR ZewGQuACBdAN99Spmrx8Qd XbcbYBD2TRBksqCpm1Khc9 gdSvDteiAvB6rsX4HyEJSr XANeWHZnMpGiowEqh0Gsa0 DwcDHwzVy0o2mxCJBcMCWe jEiig1fgDMQ1NQUwZ8C1qH Arq5lbPOglYLOsxIY4kzph KLyxVRCivlN2ktysDUacOG DlbQD6xwvfQKxtIYNzCeY9 eaiqSLrbCHTbIDR3CSerc4 68UNN5CGgfPusfUNrdQSXi bmNvbnRccGduZGVjXHBsYW luXHBsYWluXGYwXGZzMjRc vQeuiCpvoL0iSlDiPoKsTW fvEA6uULCsG9ovoABzWKIw IXXqU5qoLxKnuZ7tlEarLO xmczIwIEEuIExlZnQgNXRo CUPpb3tvfKBsLLPqRSbikw khMAHkAVayVaBePLNgME4w oUG3OSWtVCewQSGzyz8= GROSS DESCRIPTION (test f8otdDSkKERznBNzDhChKG code = 3366) OmUFDug5sqJLNqxMAyTcBe MzNcZnRuYmpcdWMxXGRlZm Caw9mlw847gAHhn4lbQEJh RvZ4vLFmHZOccDHrS238RV TwOZniv4sby4TqJGFaqEFn d1J0JQYJjsvzyOf4fZspJ1 6dz7M2ZspvK1wfZRDqKAYs Z5IcVN2jLCXpPuy3AOP0TX I9DAZrHDDoF2UrAJ9lTGUx oNBkZMw5k8cmzMecCXBgJU X5x5vrJJhsijJzLT5zzq0t pNt4d6jagpIcJDHbVAAueB SDHIKqO3ChiQqyQh5dcRt3 vNxoWaimSDE7Xkr3DZ3uoz 53eog6sYvrEFDvnppkTgD0 YBmiKHOqydtxPFd5JSaeZE JnbDcyMFxtYXJncjcyMFxt YXJndDcyMFxtYXJnYjcyMF dvJUXoQSB1JQryc562WZF9 LVyrs1mas6lzcSCxOpn0RJ ZoCmAsLjbyERjgk4Wsi1rc FLJoen2qRIP0xGVgsZpqo0 T9oNThEJIetINexrIyXTDx HwK4TQcnAD4nxy08TDEhME Z4po3kyVGemHmugbMnqYNh XQyvD6GgZNEnf437ICAeZ0 LhEBIdk8I9pnUmHgPbBFRc cRV0zwC7SHDxEQd5rRSbgv B4ldCxjYCkV6gkzS97CeIq sORhA5GnnG32SlBbvKEkZ9 PipC02XiXxwJLqZ7DpmD98 DiWmxCGkRHBuqPSfKe4ayD GayAKjt7FxcEUzYMvyD47s x596FFDoyrGiP5qrjPXnsp qelVBgkovnTTsktnX6RVXg XHBsYWluXGYwXGZzMjBcbG FuZzEwMzNcaGljaFxmMFxk FlWsIDTwJWnjZ1nuIfBzLu YpJZTZqOVlyJ7sjjDTCVtf GPGqN2LdufMkKOefXGHwcX K7kWJdUOaqMuHjDJElj7q9 dXH0oOYqtGI1qFFjvIqjMO 3pkSCvHC9bMR9zJOpbVIcq ezSmz7QgQD33bGJopmSpbt QgZGVzaWduYXRlZCBhcyAi r72maNP7tODjrYUdOM43rU DeWwogY80bk6jtzQZwy0Nh k6ocrHHvlJRtuJ47UJBonm SrXqOqV00sloOmTZ0cOAP3 cmluZyAwLjcgeCAwLjMgeC XiVkKeK04wOIDdIZXspIXx zF3pudUjxxPgrEVgpGZ3OL IfJM37tNYhvMslrK50fbHE JERnypZonX57bhSjYYHxaG Ief6k4dDehsx0zgYYeRVGc fhNEmHYywP9yqgYCDZtjYL UdC7VbrjMpKTaeORQtfJB1 iMIdUOmsDtXgPYLec7l9oG W3pOMfsYI3aMLtyKxjNH1w tBSjGN3wBO0jLLnfDHjepe Yxs8SfZZ95hBKfatSfzaJz ZGVzaWduYXRlZCBhcyAibW P0IMDjeePneFUpAYJ0Kdas X76rr4hlmLAbj8YlQo93ki BtHLUjJzEcf57elKeiv6Ik CAWiPMBti79oVRExDSohGH 01mjCvHCZgrMRtqwauXk3h XDbtKY40MRnlDO36BKMkSU cxKUOmR6AyO4S5SL0uiDmf IHNwZWNpbWVuIGlzIGVudG aeBEw3CJyldPCtmbmcRCfp czIwXGxhbmcxMDMzXGhpY2 xaYiDjSQEudNiuFQrgp1Aq ANReLABxLoGcIoQfGT2ePZ avxH3vWNMpJNatz57dfKQc l98gERAxVXymRBLjTQWoZi BcbGFuZzEwMzNcaGljaFxm JAzoAlEzAQPmEZrmV3bmUw BcZnMyMCAgTUcvZXdccGFy fQ== MICROSCOPIC DESCRIPTION r5gxbLTdHZFzmJKpFnVhPV (test code = 3371) StIJDfe4vxSMNyhIFoUaUj MzNcZnRuYmpcdWMxXGRlZm Fem0rcb180iAJmw6ifXSFn OeC0mBXeYIOjaMTlB479n7 bir1qsqdPmiJC7RXXcTKZ0 IGqhmoIjytS0VJzwgDIhPg A6EKgdqeAlLHgwesOlghQa Ffx8TFDmI858RDN9uVlaw8 moEZQ7PSRhYTTeCaHsDb8o uIRmX418ZVNzIMPVUMXiiP r3DIVghnHjkmNqsVTSh663 Y540f3pjGPCgcqDrfNuWhw crv5slW961WFIwoXHmhcFl BtLsBFHwpTObfFG6FEVbMF 8mpxtgUaGaAG3tgxxmKaBk BL2hkbi0GvWpFJ8zifmaJx LyULxfQWQsmrfqXDPbp0Ok whzmSS3xA0Kax4Y4fN0ykW GgOLEwxQLfRqTvGFYxsz2a hCGpZGqju0CjIGE0ynH9mQ XorRHkXDNtAD19Wguyd3Vf DmdjRRB7GZOihaNcy2Wod2 dnFrIdzcIhQ6pjX3YqQERd ISTpGLMtTsZwbcWij4Lxd9 EdwERudUx0a9asHMLjUHUr vYmle5dqELZ0ETNpA3E7gP Chd2ovWBzaPWPmkOD6myex KNcbYWYfwdY5qaxjBQdpWZ TdbZU8ovxwSCgyVAEeRjA5 dpjnCNybRRNuLVS7AMrng7 70GQY7OSrgGcwyBGyoZYIn bmNvbnRccGduZGVjXHBsYW luXHBsYWluXGYwXGZzMjRc zDvqbPactE6qNaLlFpBpLA awCQ1pZOOlN4tczQNeTEPv VHPwK0ukIdNvgO2tuHrdZS yprlTxAYXiFt4dABQgYz1m bWVkLlxwYXJ9 Gross assessment was [facility] performed at (test [facility], Department = 2777) of Pathology, [address] [place] [address], Technical component was [facility]. [facility] performed at ([facility], = 2778) Department of Pathology, [address] [place] [address], Professional component [facility] was performed at ([facility], Department code = 2779) Pathology, [address] [place] [address], [id number] 10:21:00 Test Item Value Reference Range Interpretation Comments Case Report (test code Surgical Pathology = 104) Report Case: [id number] Authorizing Provider: Tala Santacruz DPM Collected: 12/30/2019 01:38 PM Ordering Location: [address] Med/Surg Received: 12/31/2019 06:52 AM Pathologist: Jovita Griffith MD Specimens: A) - Soft Tissue, Other, left 5th proximal phalanx B) - Metatarsal, Left, left 5th metatarsal DIAGNOSIS (test code = s2hmpMAcYTAmv5khVUFxtG 3220) FuZzEwMzNcZnRuYmpcdWMx ITuviiVoRVpij3OcS3CfQr AwMFxhbnNpXGRlZmxhbmcx QWPsBTH3mzLiUABhHGnlTM SeMRhmFx5onCMwmOzkCqAq KJByn8durhUVcxyqrAw6l7 skNMXhEkH4oOBmYLqnJ1bj mdOpzNLvJGTbONq6fW26VT TlwP8dkNQnUWegnlWtUjZ9 YDtjMSGgViK8RXNudXQsNB GhP7gfGQIaRWpoFIYkRYcg qQMaHPS8dDutp8W6sPHdjD RyhRxzGpRaSbXcVWDQs6Dn XUs3pTmyK8ZvREHmUjK2oB QgUGFyYWdyYXBoIEZvbnQ7 lZ74TEazqyE1uJIco4Hfe8 5no190aV8lbBUpKJV8UPQe DGUfkLCmDZCjHTB4LJHsxT XwC7k1YlOvbXLlU4U3VpTc aPVqC7X2MlUpoYQlM1R3Gn LslVShWBHjhFTbEg3itEJb bENzor2lzn90KMD6i1SdrI axWQT7ITF2UkPsEz0iiNZb WXTbQZ3dMtGjbIKxYHNcqw 11vFvjDXzormFwdF7hLwFe ZMTrjWOqXUFeFK4sxAOdWH DqoS9qvgjeFXOuAlCjncpe NXPenNonwlOlFl8rqAmlTD V0QYvlG7jowN5yWkT7DNqd T9icsQ9dLMx0VAakrJJ6KK BupF2nFM4aaannm1oiLeZl ZV2lcyabi5tlJoRqNW8cby z0s5jlXiMwMC6fdhbdw9sj NzIwXGhlYWRlcnkwXGZvb3 AevylgNETbo6TkN5RszPuv N40guTmoF71lBUTjoHeteB 7csHzeeC0tVcVxAxXaWPtz bFxwbGFpblxmMVxmczIwXG pkrvlvCUXsOYciA5axLxYz KAWkzPjpVNxeq6XhELUsFP KiGqVwXI8iPv0OJLwxFQSC CLGWJFOTRFMEYu0TGK1IFR RNJBKJZX8DBKHYLW7ZD1t1 QDBzlgRnJUFtXKDNAP2tZ8 fRYYOBMvJKOjjKEM3FIFCR UlRJTEFHRSBXSVRIIFNVUl DFXL8IHG7XNBPLZSSMEYUA RCBDSFJPTklDIElORkxBTU 1BVElPTlxwYXJccGFyIEIu IEJPTkUsIExFRlQgRklGVE ggTUVUQVRBUlNBTCwgQklP UFNZOlxwYXIgICAgLSBBQ1 IZIPNNF5BQY25DMWgMIMtX IFxwYXIgICAgLSBTRVBBUk TFOQOXYeZLGKQFXHVnS4Xt JqvUKa8QA19LWUAQTRONNV WXB0LAQZEABHSQJMXAV5NH C9UrLD9DB8NDK7wBYUSDCB BHUkFOVUxBVElPTiBUSVNT LVMiEe1YUIFEDQ8XZPVsuo 57SSB4XkVvc3W4BLW5HRNx GCGxh2nsTRFmdWTzVtAgDk NcZnRuYmpcdWMxXGRlZmYw z7mir090xWXkl5coANDdWh J2vVVcKGBxfQFuU176BMWp YKfhv2ejw5MpTRChrGQak9 O2XVQCmrvckPf9jLnsY89w o6X4UigqP0trMTCyJJEjE1 DjEX1eQHTiZxa6OSW5SLT4 UDUkVRTiD3IuHY6hMKQltC EuHRj7c0xhkCofIFKlQYW7 c0ujIGswvaHsAY2svd6txO w7q8hycuGpMQPsZHTuuYXR NOZrK4WvvMwnSx2jsTt6uR paLureHEE6Eio3BH1ean79 skz2lNogOLMdzbiwGoS7UK fnMJTdwopgZQx1UDgvYVYh yIR7ADJqrERfH3DkFNYkEX 8zaon3REU7ZPgfNEWhFjP9 NDBcaGVhZGVyeTcyMFxmb2 64BLS4OgMsYT3kL2Eye2V2 xJ9wrSVcWAJziCTiTuMnFU Bjab9akPEvXUlri4QqGBH6 iuP7fAAjwPCwEKQiZrE9LZ vuDR0buq98QOFgAOV5lg0q bGNccGdicmRyaGVhZFxwZ2 XmWUVct515KMCoF9DuRDZk u7U2qnXmMnUiQPGoiZR2sc S5QYYiES3gcjiyu0bmLSnv WAxoQTIaqrT7kiT8ZXYbhY UfF3KzsK7oMOQeSK4upkqn m7krOUN1WBygRNWjPNL1Lu ShPSNge4Lwuqs6GbTvw9Yd zUMeMHqkI08qj879BDNxdc QzN0twpRWwhzjnqGLcxdjw KGdrwvZ1ZRQcOElkedciSA ChABweL7foZzXoVESiaXpv WHoqo6UaZDHrQDVkTnChyG TaMBOhSjw1OCJqyNNoPNIm UbVpP5cwklrhMpLCTHHhg3 pvF4gdeLAKkUCzN7UsALru vdKaVJmqUPkiMDI2PUI7Af 38AnW8JYOiot68 CPT Code(s) (test code n9rojDNkLOVefXLoXcQsPZ = 3357) BvBFOkx8ryDOUmuNMpCaQw MzNcZnRuYmpcdWMxXGRlZm Oge1tmg537aBFuj0hcPAAw AoA8lTTqJIAgqHRjE833q7 sey4mzloVjqBC3WPBoMFV4 MRsokfLbwdO0FCmxrACrXv O6RGvfarYqNRacdlXewxXl Khm3TMElO663JVV3rOjnv3 xrZYU9KHXpZSBbMtAsBd7c jBJpA941NLEiHMUFHJEpzK n0GHInfaGscnXfqRZNo851 Q943o0evPWKnxnAgsErGlw nhv8vvA525NUWuqROoozNv ZaIiLYLczFRydLC1QTNsGH 2txukiGnAkFZ8yutxfTdRf UU1wgeg1ZvKcCL4hkxbcQn QjBHquSCKvtyaxYKCxs1Us nfxiVJ3mC7Byb7T0mJ5ujK FoSZHtcMXkTuXiHRDpav9f xMNvGNggp1JoPPU9knC3tF BasNZjUGWrBY95Tpwof2Wz JqjsHGR4WOVkgwBkn2Apo5 cfDxAajlXiT5cqF6QkEROo PZZeCBPvCwSvbqTnl3Frn0 SdyBGjsVi4v4ozVRCjPAFl wFwak9upCYD8NTAiK9K5yR Qua2ofIIhcSDFszKU1cina HGaiRADdryH4vdouCAxeME ZgxVF0rkykWEwdTKJlXsE5 yoocCNegAEQyFUM0KIghd4 17SZI7ANtgGuktHFthAOVu bmNvbnRccGduZGVjXHBsYW luXHBsYWluXGYwXGZzMjRc tSapyXjfsX4yNqUkWoYmSL jlRU0xXTUtZ0ksgTSwMZEo JINmG4yrPsPvkZ5xbLggPC jkfsRhTP2YP0D6MUIorkL7 HFObFcK0MkjfIXCxWFqkCG EgeDJccGFyfQ== CLINICAL HISTORY (test b8oppQBjREGmcUQyHbAgZP code = 3356) TnRRBcf9wpMOTsqTQlTxRz MzNcZnRuYmpcdWMxXGRlZm Pfc5rsh754kMMfn5woYYXy NrL7iIWkCFMgpXGoC096r6 mdx7futlFayJH9TABzPTL7 CIoogtDfpkY9IIxzoARlNg W9CFcsmgMkLTfyitAhosZe Yuu9QPIuN982KXQ6lSome7 hdUJT8SCDgUDJuHpYzAb0f dLTsN630QWHjLXHGLVWgaT c4ADGytnFwrqBnuQORt522 N687x4luZGWnanBshFsLyt fzj1vjS580CCAqjCGzcrHh DcCqALTfeSKncMN3ARHtGB 2rnaeiBpOyGH3lzviyVdDy TF5zdfw6VaBzUF3ymrjaEc CwQKnjQWLkhnzlHSGbb7Hx pcuzPH3rF5Rje6G9dH5izJ EuGOVwbCKpChPeHCBdsd9k dHRnHSijk2WnRGQ8oyN2iO UnoFCzXYPyUV94Ldzhu6Ps KowrOAG1PACizxHxo8Ksy4 csHiDywsAvN7xeY4ZmMLGm TYNlGMQwXzCxqfHhr4Xpe5 RjlXCroSx9t7ecBWDmUECl gJzvb4brZUZ7BUAzW3T7jH Zys0oiZYzxXCHunTG7loyl PTbeLSCqxvR8qvvtNXnmJY YtwPO0ovxtKGybEBTzTzC6 kuefSDfwRMIiVCH3ADsse3 94LEO5OAxpRbelGBxqNZDk bmNvbnRccGduZGVjXHBsYW luXHBsYWluXGYwXGZzMjRc wNualVtciW8iIfFzZjSiUO aaPY1sPJWfY6dsiAQkGTNw XRMcY1wiJkHoeE9izZavUF avsgAbDQ5axNOnnBiynXr3 iJDri9MmwJPhoYI1fZxzsK H4ABVkgeBcnRtdwMidBSRq r1WbKyqoPPJoebHzTXPzZE RccGFyfQ== SPECIMEN SOURCE (test s1sjnAOdIABfmRDlLhEzJX code = 3377) DeXXEtk3ivNQKwfLYqCwYn MzNcZnRuYmpcdWMxXGRlZm Fel3auj193xSNoc0yzYDQa VgO4bGBsMGKrpIXoK081e8 jmq2oqmdQuqYU1XZKrNKH8 ETlazcCvocP4TUkxaGGtJc R1ZInpaoCmFQghtyXjalEt Cri0SDDoH187MHF0uBhrl0 fcMLG8OVWaQYBtBqOzTa3i zLRnT781XKKjYYBRXLRtaB k3EUPjkuOoqhIypWUNa587 M484q5pdFKTronIkoCeCiy zug6brQ129VRJapLAajkIm TuNmTVRpqLGsuAL3RVHlPV 8hgkmfNpCjST0ukzzzWrQh EX5ueze0HvHlTW5dbrglVk AiOVjdEIGxapkjNZNga5Hn mckjKM6kP5Yrj6X4hW8tyA PePLCdpTFnMyGzDHAnit9c jWVhOKsvd6KgPKJ6ynS7bD LuvPZnQBGkXB96Zlzvp5Si FxbuCUB7YZCigoWic4Olj4 haLfRxfsBvI7cjV7IpDMIj UMFzFGQdJeGjmvAwz3Obs4 VphWYtjPw5v3izWSAwZVDt jVghm9bbPBJ8EMOmX7G1aP Ugu0wuGKzmPIDacNW8mnyk VSprVHHlgcL2zzbiWBydVH ZstJN5mwloGHrfUGIvZaB4 suroYZoaELTiGHR9XMzzj8 92FIO8AGmzGwpfTZbkSZIp bmNvbnRccGduZGVjXHBsYW luXHBsYWluXGYwXGZzMjRc uFgmsZzdrH4jQhYiDuKbER clZJ7kLDFqH6irsZLqUEOy GUGsQ6utGcMdnG1pxPszIW xmczIwIEEuIExlZnQgNXRo UGCyj8hacCBqGIQdFFdszy odQANeTXxiMqLbMDMdKJ1c hEC7JHZaOPaxPQKxbd7= GROSS DESCRIPTION (test w5mwpIZcEKNxxWPrAfAmXC code = 3366) UvJRRom6ulYYCyqOZxWiNf MzNcZnRuYmpcdWMxXGRlZm Kvd9blm319gOOhm8gtMCHg VnI0oFUgCOBeiJVrO267GB VsYCdoz9iwf4XjUCAudPQp r1M7MHWJrxpesWv4jOduB3 1mg5V7InwnW5ehAGQkRHVa M9UjPI6mDMQtMhd2VQK8SG Q7DUUcUUQwU6EtQC6mWPPo gYDoOQb7e4rfkDdlAWQqRW U0c5yyNYfkcmUwMO4omg6y oXk5a2ftwbWyHALdHZShfA CKZSIkF6QnlDktAm1olKg6 bWukNibxBVJ6Uro0HK6lxu 25vxb1tTmlTRPqfwxiIyA9 SCvvVGBvrxkuIAg6AWocLM JnbDcyMFxtYXJncjcyMFxt YXJndDcyMFxtYXJnYjcyMF sgYRBsJSC6NZade281IXD8 OQwqs0kgq0taqIHaFhv3CO AkBwMbXmlbKXisn0Dyx5kx ETGcqu6jNSD4rBCdqExyj4 E1wIQfZVUrdLDazgMgZLOk ZzQ8SAttGB8prc42PJOxBJ Z1ew2wpCOojKuxyoRiiBVs KMjxH4AxERBeb290AMKxJ4 SiSFMvu9J1klQwWuIxYYRd gIX2dmP3CIPiEOu2hVTehq Y4zwMudYGeH3uhlA88QwMh sTMnW9GcoR43SkZanBJlF9 GctM72LdNnxALsH9EdyK14 PuNbrQPaLJQinSKwBh3zdA CjfPMnj7SynXYnGWgrX72r b060SHSsppUjB0jdvNCdma apsLTzsygnANlebbX4JSOl XHBsYWluXGYwXGZzMjBcbG FuZzEwMzNcaGljaFxmMFxk VuCtQBNdUYfkW8xeFzNdEx NcACQGnLEqqQ1hytJOLVrt RCReP3RkvwRkVBsiATObuG F8iODgVEnuLmIcMJQfp5m9 lEQ8mDLnaYP3fLEylWxiPD 7iyPVnUK4hZA8sJLjzIAxj lvWlb1LfHM41cCOluzNnyn QgZGVzaWduYXRlZCBhcyAi u13ytLS0xBKliJPrQZ28dE DiLogyZ68uz2vitIZkq5Sl p9gupWOzdKKstA26QCNrew CvUiFvF53wdrLxAX6gEDV5 cmluZyAwLjcgeCAwLjMgeC PfMrRaF16pJJMjFGCjkVFm bQ3qyaXcjvYqtYWmjAW6JU JxQS32yEQbtJxlsN14mzMU DKTkazAlsZ93jcMjKCCnsR Try0r6qEybut8dfNVrFAKk mnGMcRKnnN6gywNGVEzbVV NeZ9VaduRqTQzlKDDxuFA3 vXVzQHqxZvYfSCLrn2e6sF D0cODykDK0yWMyjWgjRG1e kEYtBK0gRE6iWSqnTQexct Yyi0YnVB55hJTyjrDqanIx ZGVzaWduYXRlZCBhcyAibW K9RGDvbkXnzSClGQE5Ojhb P67ky5cybMYem2GcYw13ln EzHFGiWaGxe47hfByeb2Bv BTDnIGTfg25sIXFaCObuSX 02rmPiRVKqwKGgdojaTz0t CTtuQQ63SUlrAW18XDOhNQ kkGDInV6YxC7O2XW0vpWql IHNwZWNpbWVuIGlzIGVudG bdFTf2BUyhzTDgvtppOCwh czIwXGxhbmcxMDMzXGhpY2 ggYfBoULIruPyaOTdiv4Pw CFZqNHHwFsWjPyXlIF1jNB prqL8gZWGqEUbhr24ifBXc b81cYCFpRNevFYJoCBZrUc BcbGFuZzEwMzNcaGljaFxm SFneGnBfGQKgTZeoF2zvKc BcZnMyMCAgTUcvZXdccGFy fQ== MICROSCOPIC DESCRIPTION h5gkbMLnOTBeyIEbDfJkZZ (test code = 3371) OrOGUpp7xeBKEffKOlLeFx MzNcZnRuYmpcdWMxXGRlZm Gar9yxf142pDLtr3lmEBTz CbG5sXLcXFLwtNRbE144v3 fdi8mkxpXccNL8PWYsPBG4 MCazwkUaxmJ6KDmplUKdAm U6XAesvtQzAZcziyCujsDa Eiv3NVAcV343NGG4aJyop3 tkSFB9BWByJTItHnNtXe2y vYTjD932WEUuVJJCOGTyjG l2GVLmbwIakaEbiPFKm539 F308x9bwKNPjvdOsgKzJxw mqy4aqY678EOBmiLZgodWj FaNhWFBrsDElhLS1HGGtUI 2axojiLnCuOB6cjoamKnKk KM1kvmb7KzGlBB8ovllyMf ZcFDolGHPalphgLFMlx3Eb ltczHA6vR7Vto4L1xD6rdN AuCYJmpSTaSsFgRRQwdg9k rXVgVTezn1MxPKC4hjE3yO TmnRIvAJQcIW95Xyvtf1Te VrkoUPH7APXxkcFgu5Gfg4 vjIsVeguNpR5yzX9PqSCTm CNCeIGUeAvOgdsUsi5Ing1 BfgAFnsKe0d7utXZGcKUJu zLhow6scJXR0EFYaF1X2sD Iik4nlGZfhQSTyvCE4ksbq THzdROKkivP3heodXUgdVJ ObzCG6zvshDWevNMKrDnR9 wgdnWIuwSISuJSK2WJtcx7 64TBK2TEucZphzBVdoMFBs bmNvbnRccGduZGVjXHBsYW luXHBsYWluXGYwXGZzMjRc zQgrcKolxC8eGnXrEjWgNV jqRK2xJTEqM9mwxRVgOLZs ZUCpJ4jcPwUpeF5jnHtdKN itysVyENViPf4tTHOgTq0f bWVkLlxwYXJ9 Gross assessment was [facility] performed at (test code Hospital, Department = 3553) of Pathology, [address] [place] [address], [place] [address], Technical component was [facility] performed at (test [facility], = 2778) Department of Pathology, [address] [place] [id number], Professional component [facility] at ([facility], Department code = 2779) of Pathology, [address] [place] [address], [facility] [id number] 10:21:00Surgical Pathology Report Case: [id number] Authorizing Provider: Tala Santacruz DPM Collected: 12/30/2019 01:38 PM Ordering Location: [address] Med/Surg Received: 12/31/2019 06:52 AM Pathologist: [...] TISSUE FORMATION Signing Pathologist Direct Phone Line: [phone] signed by Jovita Griffith MD on 01/04/2020 at 10:21 AMMG/[id number] [id number] of left 5th metatarsal, ulcer of bilateral [...] B1 and into decal solution. MG/Veronica-B. Performed.[facility], Department of Pathology, [address] [place] [address], [facility], Department of Pathology, [address] [place] [address], [facility], Department of [facility]ology, [address] [place] [address], MXUGODNOT [id number] 10:47:00 Test Item Value Reference Interpretation Comments [...] negative Staphylococcus SURGICALLY OBTAINED CULTURE + GRAM [id number] 08:31:00 Test Item Value Reference Range Interpretation Comments CULTURE (BEAKER) (test code No growth = 1095) GRAM STAIN RESULT (BEAKER) <1+ WBCs (test code = 1123) GRAM STAIN RESULT (BEAKER) No organisms seen (test code = 78888) SURGICALLY OBTAINED CULTURE + GRAM [id number] 08:19:00 Test Item Value Reference Interpretation Comments Range CULTURE (BEAKER) STENOTROPHOMONAS A 2+ Sten otrophomonas (test code = 1095) MALTOPHILIA maltophil ia Levofloxacin (test S code = 22) Trimethoprim + S Sulfamethoxazole (test code = 47) GRAM STAIN RESULT <1+ WBCs (BEAKER) (test code = 1123) GRAM STAIN RESULT No organisms seen (BEAKER) (test code = 419309) POC-Glucose [id number] 06:47:00 Test Item Value Reference Range Interpretation Comments POC-Glucose Meter (test 102 mg/dL 70-110 : TE STED AT [facility] code = 1538) [address] [facility] [address]: Occupational Therapy Assist/Techni artemio ID = [id number] for Anne Salgado Lab Interpretation (test Normal code = 02593-5) [facility]-Glucose [id number] 06:47:00 Test Item Value Reference Range Interpretation Comments POC-Glucose Meter (test 102 mg/dL 70-110 : TE STED AT [facility] code = 1538) [address] [facility] [address]: Occupational Therapy Assist/Techni artemio ID = [id number] for Brown, Anne Lab Interpretation (test Normal code = 51042-6) [facility]-GLUCOSE [id number] 06:47:00 Test Item Value Reference Range Interpretation Comments POC-GLUCOSE METER 102 mg/dL 70-110 : TESTED A T [facility] 1317 (BEAKER) (test code [facility], = 1538) [place] [address]78: Occupational Therapy Assist/Techni artemio ID = [id number] for Anne Busby Comprehensive metabolic [id number] 06:34:00 Test Item Value Reference Range Interpretation Comments Protein, Total (test 6.1 See_Comment [Autom ated code = 2885-2) message] The system which generated this result transmit merna reference range : 6.0 - 8.5 gm/dL . The reference range was not u sed to interpret th is result as normal/abnormal . Albumin (test code = 2.3 g/dL 3.5-5 L 19735-7) Alkaline Phosphatase 81 U/L 30-115 (test code = 6768-6) Total Bilirubin (test 0.4 mg/dL 0.1-1.2 code = 1975-2) Sodium (test code = 137 meq/L 853-875 0715-2) Potassium (test code 3.7 meq/L 3.6-5.5 = 2823-3) Chloride (test code = 100 meq/L 98-106 2075-0) CO2 (test code = 28 meq/L 20-29 2027-9) BUN (test code = 14 mg/dL 01-23 3094-0) Creatinine (test code 2.31 mg/dL 0.5-1.2 H = 2160-0) Glucose (test code = 100 mg/dL 70-110 2345-7) Calcium (test code = 7.5 mg/dL 8.5-10.5 L 32228-2) AST (test code = 15 U/L 5-40 1920-8) ALT (test code = 6 U/L 5-50 1742-6) EGFR (test code = 21 mL/min/1.73 [place] [address]-5) NOT ACCURATE CREATININE CLEARANCE IN PREDICTING GLOMERULAR FILTRATION RATE . ESTIMATED GFR I S NOT APPLICABLE FOR DIALYSIS PATIEN TS. ZIA (test code = ZIA) Occupational Therapy Assist ID - ADMIN Lab Interpretation Abnormal (test code = 56480-0) [facility] [id number] 06:34:00 Test Item Value Reference Range Interpretation Comments Protein, Total (test 6.1 See_Comment [Autom ated code = 2885-2) message] The system which generated this result transmit merna reference range : 6.0 - 8.5 gm/dL . The reference range was not u sed to interpret th is result as normal/abnormal . Albumin (test code = 2.3 g/dL 3.5-5 L 77720-2) Alkaline Phosphatase 81 U/L 30-115 (test code = 6768-6) Total Bilirubin (test 0.4 mg/dL 0.1-1.2 code = 1974-2) Sodium (test code = 137 meq/L 276-762 0482-2) Potassium (test code 3.7 meq/L 3.6-5.5 = 2823-3) Chloride (test code = 100 meq/L 98-106 2075-0) CO2 (test code = 28 meq/L 20-29 2027-9) BUN (test code = 14 mg/dL 01-23 3094-0) Creatinine (test code 2.31 mg/dL 0.5-1.2 H = 2160-0) Glucose (test code = 100 mg/dL 70-110 2345-7) Calcium (test code = 7.5 mg/dL 8.5-10.5 L 21551-8) AST (test code = 15 U/L 5-40 1920-8) ALT (test code = 6 U/L 5-50 1742-6) EGFR (test code = 21 mL/min/1.[place] [address]-8) NOT ACCURATE CREATININE CLEARANCE IN PREDICTING GLOMERULAR FILTRATION RATE . ESTIMATED GFR I S NOT APPLICABLE FOR DIALYSIS PATIEN TS. ZIA (test code = ZIA) Occupational Therapy Assist ID - ADMIN Lab Interpretation Abnormal (test code = 83081-7) [facility] [id number] 06:34:00 Test Item Value Reference Range Interpretation [...] S NOT APPLICABLE FOR DIALYSIS PATIEN TS. Occupational Therapy Assist ID - ADMINCBC with platelet count + automated [id number] 06:06:00 Test Item Value Reference Range Interpretation Comments WBC (test code = 6690-2) 5.7 See_Comment [A utomated message] The system Tutor Assignment generated this result transmitted ref erence range: 4.0 - 10 .0 K/L. The refe rence range was not u sed to interpret this result as normal/abnor mal. RBC (test code = 789-8) 2.41 See_Comment L [Au tomated message] The system Tutor Assignment generated this result transmitted ref erence range: 4.00 - 5 .00 M/L. The refe rence range was not u sed to interpret this result as normal/abnor mal. MCHC (test code = 786-4) 30.8 See_Comment L [A utomated message] The system Tutor Assignment generated this result transmitted ref erence range: [...] L [Aut omated message] 777-3) The system Tutor Assignment generated this result transmitted ref erence range: 150 - 43 0 K/CU MM. The referen ce range was not u sed to interpret this result as normal/abnor mal. MPV (test code = 10.5 fL 6-11.5 72756-9) nRBC (test code = 413) 0 See_Comment [Aut omated message] The system Tutor Assignment generated this result transmitted ref erence range: [...] See_Comment [Aut omated message] 670) The system Tutor Assignment generated this result transmitted ref erence range: 1.80 - 8 .00 K/L. The refe rence range was not u sed to interpret this result as normal/abnor mal. # Lymphs (test code = 1.66 See_Comment [Auto mated message] 414) The system Tutor Assignment generated this result transmitted ref erence range: 1.48 - 4 .50 K/L. The refe rence range was not u sed to interpret this result as normal/abnor mal. # Monos (test code = 0.28 See_Comment [Autom ated message] 415) The system Tutor Assignment generated this result transmitted ref erence range: 0.00 - 1 .30 K/L. The refe rence range was not u sed to interpret this result as normal/abnor mal. # Eos (test code = 416) 0.12 See_Comment [Au tomated message] The system Tutor Assignment generated this result transmitted ref erence range: 0.00 - 0 .50 K/L. The refe rence range was not u sed to interpret this result as normal/abnor mal. # Baso (test code = 417) 0.07 See_Comment [A utomated message] The system Tutor Assignment generated this result transmitted ref erence range: 0.00 - 0 .20 K/L. The refe rence range was not u sed to interpret this result as normal/abnor mal. Immature 0 % 0-0 Granulocytes-Relative (test code = 2801) Lab Interpretation (test Abnormal code = 58965-4) [facility] with platelet count + automated [id number] 06:06:00 Test Item Value Reference Range Interpretation Comments WBC (test code = 6690-2) 5.7 See_Comment [A utomated message] The system Tutor Assignment generated this result transmitted ref erence range: 4.0 - 10 .0 K/L. The refe rence range was not u sed to interpret this result as normal/abnor mal. RBC (test code = 789-8) 2.41 See_Comment L [Au tomated message] The system Tutor Assignment generated this result transmitted ref erence range: 4.00 - 5 .00 M/L. The refe rence range was not u sed to interpret this result as normal/abnor mal. MCHC (test code = 786-4) 30.8 See_Comment L [A utomated message] The system Tutor Assignment generated this result transmitted ref erence range: [...] L [Aut omated message] 777-3) The system Tutor Assignment generated this result transmitted ref erence range: 150 - 43 0 K/CU MM. The referen ce range was not u sed to interpret this result as normal/abnor mal. MPV (test code = 10.5 fL 6-11.5 50417-3) nRBC (test code = 413) 0 See_Comment [Aut omated message] The system Tutor Assignment generated this result transmitted ref erence range: [...] See_Comment [Aut omated message] 670) The system Tutor Assignment generated this result transmitted ref erence range: 1.80 - 8 .00 K/L. The refe rence range was not u sed to interpret this result as normal/abnor mal. # Lymphs (test code = 1.66 See_Comment [Auto mated message] 414) The system Tutor Assignment generated this result transmitted ref erence range: 1.48 - 4 .50 K/L. The refe rence range was not u sed to interpret this result as normal/abnor mal. # Monos (test code = 0.28 See_Comment [Autom ated message] 415) The system Tutor Assignment generated this result transmitted ref erence range: 0.00 - 1 .30 K/L. The refe rence range was not u sed to interpret this result as normal/abnor mal. # Eos (test code = 416) 0.12 See_Comment [Au tomated message] The system Tutor Assignment generated this result transmitted ref erence range: 0.00 - 0 .50 K/L. The refe rence range was not u sed to interpret this result as normal/abnor mal. # Baso (test code = 417) 0.07 See_Comment [A utomated message] The system Tutor Assignment generated this result transmitted ref erence range: 0.00 - 0 .20 K/L. The refe rence range was not u sed to interpret this result as normal/abnor mal. Immature 0 % 0-0 Granulocytes-Relative (test code = 2801) Lab Interpretation (test Abnormal code = 78052-2) [facility] [place] W/PLT COUNT & AUTO [id number] 06:06:00 Test Item Value Reference Range Interpretation [...] PERCENT (BEAKER) (test code = 2801) POCT-GLUCOSE [id number] 21:02:00 Test Item Value Reference Range Interpretation Comments POC-GLUCOSE METER 167 mg/dL 70-110 H : TESTED A T [facility] [address] (BEAKER) (test code [facility], = 1538) [place] [address]: Occupational Therapy Assist/Techni artemio ID = [id number] for Ashley geovanna Anne POCT-GLUCOSE [id number] 18:12:00 Test Item Value Reference Range Interpretation Comments POC-GLUCOSE METER 121 mg/dL 70-110 H : TESTED A T [facility] [address] (BEAKER) (test [facility] [address] [facility], = 1538) [place] [address]: Occupational Therapy Assist/Techni artemio ID = [id number] for Cortney Cohen POCT-GLUCOSE [id number] 11:54:00 Test Item Value Reference Range Interpretation Comments POC-GLUCOSE METER 117 mg/dL 70-110 H : TESTED A T [facility] (BEAKER) (test code [facility] [address], = 1538) [facility] [place] [address]: Occupational Therapy Assist/Techni artemio ID = [id number] for Cortney Cohen COMPREHENSIVE METABOLIC [id number] 06:47:00 Test Item Value Reference Range Interpretation [...] S NOT APPLICABLE FOR DIALYSIS PATIEN TS. Occupational Therapy Assist ID - CGRQCYbenvmcbb4501-02-25 06:42:00 Test Item Value Reference Range Interpretation Comments Magnesium (test code = 1.6 mg/dL 1.5-3 61588-4) ZIA (test code = ZIA) Occupational Therapy Assist ID - ADMIN Lab Interpretation (test Normal code = 83606-2) [facility]2020-[facility] 06:42:00 Test Item Value Reference Range Interpretation Comments Magnesium (test code = 1.6 mg/dL 1.5-3 79647-5) ZIA (test code = ZIA) Occupational Therapy Assist ID - ADMIN Lab Interpretation (test Normal code = 62601-0) [facility] [id number] 06:42:00 Test Item Value Reference Range Interpretation Comments POC-GLUCOSE METER 101 mg/dL 70-110 : TESTED A T [facility] [address] (BEAKER) (test code [address], = 1538) [facility] [place] [address]: Occupational Therapy Assist/Techni artemio ID = [id number] for Anne Busby [id number] 06:42:00 Test Item Value Reference Range Interpretation Comments MAGNESIUM (BEAKER) (test code = 1.6 mg/dL 1.5-3.0 627) Occupational Therapy Assist ID - ADMINCBC W/PLT COUNT & AUTO [id number] 06:37:00 Test Item Value Reference Range Interpretation [...] PERCENT (BEAKER) (test code = 2801) POCT-GLUCOSE [id number] 20:24:00 Test Item Value Reference Range Interpretation Comments POC-GLUCOSE METER 155 mg/dL 70-110 H : [facility] (test code [facility], = 1538) [facility] [address]: Occupational Therapy Assist/Techni artemio ID = [id number] for Anne Busby POCT-GLUCOSE [id number] 16:39:00 Test Item Value Reference Range Interpretation Comments POC-GLUCOSE METER 164 mg/dL 70-110 H : Notified RN/MD: TESTED (BEAKER) (test code AT [facility] [address] = 1538) [facility] [address]: Occupational Therapy Assist/Techni artemio ID = [id number] for Alondra Kelley SARS-CoV2/RT-PCR (Asymptomatic ONLY)2019-12-30 15:57:00 Test Item Value Reference Range Interpretation Comments SARS-COV2/RT-PCR Negative Not Detected, (test code = Negative, See 30010-7) external report for linked test SARS-COV-2 [facility] PERFORMING LAB (test code = 41247-3) ZIA (test code = Negative result for [...] of the Act. Fact Sheet for Healthcare Providers:https://www.Beepi idel.QThru/sites/default/f loco/product/documents/F act_Sheet_HC_Providers_L pxy_QJAE-SmQ-2.pdf Fact Sheet for Healthcare Patients:https://www.Behalf del.QThru/sites/default/fi les/product/documents/Fa ct_Sheet_Patients_Lyra_S ARS-CoV-2.pdf Performing Laboratory:[facility] [place] [address] [facility] (Asymptomatic ONLY)2019-12-30 15:57:00 Test Item Value Reference Range Interpretation Comments SARS-COV2/RT-PCR Negative Not Detected, (test code = Negative, See 10775-8) external report for linked test SARS-COV-2 [facility] PERFORMING LAB (test code = 92351-6) ZIA (test code = Negative result for [...] of the Act. Fact Sheet for Healthcare Providers:https://www.Beepi ideIndotrading.QThru/sites/default/f loco/product/documents/F act_Sheet_HC_Providers_L dxz_HTCL-AzJ-6.pdf Fact Sheet for Healthcare Patients:https://www.Behalf del.QThru/sites/default/fi les/product/documents/Fa ct_Sheet_Patients_Lyra_S ARS-CoV-2.pdf Performing Laboratory:[facility] [place] [address] [facility] ([facility])2019-12-30 15:57:00 Test Item Value Reference Range Interpretation Comments SARS-COV2/RT-PCR (test Negative Not Detected, Negative, code = 3263475) See external report for linked test SARS-COV-[address] [facility] (test code = 6188271) Negative result for this test determines that [...] 564(g) of the Act.Fact Sheet for Healthcare Providers:https://www.[employer].QThru/sites/default/files/product/documents/Fact_Shee s_DG_Mfhfczybk_Sbku_XKQJ-WjX-2.pdfFact Sheet for Healthcare Patients:https://www.[employer]QThru/sites/default/files/product/ documents/Llvm_Fhehz_Lcyiixdg_Faly_MKGR-OfE-6.pdfPerforming Laboratory:[facility], [place] [address]GJXH-RRJKEVX METER 2019-12-30 11:50:00 Test Item Value Reference Range Interpretation Comments POC-GLUCOSE METER 82 mg/dL 70-110 : Notified RN/MD: TESTED (BEAKER) (test code = AT [facility] [address]) [place] [address]: Occupational Therapy Assist/Techni artemio ID = [id number] for Alondra Kelley WOUND CULTURE + GRAM [id number] 10:45:00 Test Item Value Reference Interpretation Comments [...] gram negative (BEAKER) (test code rods = 180424) POCT-GLUCOSE [id number] 05:50:00 Test Item Value Reference Range Interpretation Comments POC-GLUCOSE METER 103 mg/dL 70-110 : Notified RN/MD: TESTED (BEAKER) ([facility] [address] = 1538) [place] [address]: Occupational Therapy Assist/Techni artemio ID = [id number] for Carloskylee Zonia COMPREHENSIVE METABOLIC [id number] 05:44:00 Test Item Value Reference Range Interpretation [...] S NOT APPLICABLE FOR DIALYSIS PATIEN TS. Occupational Therapy Assist ID - ADMINCBC W/PLT COUNT & AUTO [id number] 05:29:00 Test Item Value Reference Range Interpretation [...] PERCENT (BEAKER) (test code = 2801) POCT-GLUCOSE [id number] 21:21:00 Test Item Value Reference Range Interpretation Comments POC-GLUCOSE METER 185 mg/dL 70-110 H : Notified RN/MD: TESTED ([facility]) (test code AT [address] = 1538) [place] [address]: Occupational Therapy Assist/Techni artemio ID = [id number] for Zonia Healy POCT-GLUCOSE [id number] 11:21:00 Test Item Value Reference Range Interpretation Comments POC-GLUCOSE METER 143 mg/dL 70-110 H : Notified RN/MD: TESTED ([facility]) (test code AT [facility] [address] = 1538) [place] [address]: Occupational Therapy Assist/Techni artemio ID = [id number] for Alondra Kelley COMPREHENSIVE METABOLIC [id number] 06:27:00 Test Item Value Reference Range Interpretation [...] S NOT APPLICABLE FOR DIALYSIS PATIEN TS. Occupational Therapy Assist ID - ADMINPOCT-GLUCOSE [id number] 06:21:00 Test Item Value Reference Range Interpretation Comments POC-GLUCOSE METER 73 mg/dL 70-110 : Notified RN/MD: TESTED (BEAKER) (test code = AT [address] [address]) [facility] [address]: Occupational Therapy Assist/Techni artemio ID = [id number] for Zonia Healy CBC W/PLT COUNT & AUTO [id number] 06:00:00 Test Item Value Reference Range Interpretation [...] PERCENT (BEAKER) (test code = 2801) POCT-GLUCOSE [id number] 20:48:00 Test Item Value Reference Range Interpretation Comments POC-GLUCOSE METER 84 mg/dL 70-110 : Notified RN/MD: TESTED (BEAKER) (test code = AT [address] [address]) [place] [address]: Occupational Therapy Assist/Techni artemio ID = [id number] for Zonia Healy POCT-GLUCOSE [id number] 17:51:00 Test Item Value Reference Range Interpretation Comments POC-GLUCOSE METER 59 mg/dL 70-110 L : TESTED A T [facility] (BEAKER) (test code = [address] [facility], 1538) [place] [address]: Occupational Therapy Assist/Techni artemio ID = [id number] for Christina r, Berta POCT-GLUCOSE [id number] 13:28:00 Test Item Value Reference Range Interpretation Comments POC-GLUCOSE METER 67 mg/dL 70-110 L : TESTED A T [facility] (BEAKER) (test code = [address] [facility], 153) [place] [address]: Occupational Therapy Assist/Techni artemio ID = [id number] for Christina r, Berta POCT-GLUCOSE [id number] 06:04:00 Test Item Value Reference Range Interpretation Comments POC-GLUCOSE METER 94 mg/dL 70-110 : TESTED A T [facility] (BEAKER) (test code = [address] [facility], 1538) [place] [address]: Occupational Therapy Assist/Techni artemio ID = [id number] for Anahi Sherman COMPREHENSIVE METABOLIC [id number] 05:35:00 Test Item Value Reference Range Interpretation [...] S NOT APPLICABLE FOR DIALYSIS PATIEN TS. Occupational Therapy Assist ID - ADMINCBC W/PLT COUNT & AUTO [id number] 04:56:00 Test Item Value Reference Range Interpretation [...] PERCENT (BEAKER) (test code = 2801) POCT-GLUCOSE [id number] 20:43:00 Test Item Value Reference Range Interpretation Comments POC-GLUCOSE METER 137 mg/dL 70-110 H : TESTED A T [facility] [address] (BEAKER) (test code [address], = 1538) [facility] [address]: Occupational Therapy Assist/Techni artemio ID = [id number] for Anahi Sherman MR, EXTREMITY, LOWER, WITHOUT CONTRAST, [id number] 16:55:00MRI LEFT FOOT.Unlisted Reason for Exam - [...] MDReport Verified Date/Time: 12/27/2019 16:55:07 Reading Location: [facility] Radiology Reading Room MR lower extremity without IV contrast left [id number] 16:55:00Interface, External Ris In - 12/27/2019 4:57 [...] Ringort Verified Date/Time: 12/27/2019 16:55:07 Reading Location: [facility] Radiology Reading Room Electronically signed by: Adrienne CHU 12/27/2019 04:55 [facility] left [id number] 16:55:00Interface, External Ris In - 12/27/2019 4:57 [...] Ring Verified Date/Time: 12/27/2019 16:55:07 Reading Location: [facility] Radiology Reading Room Electronically signed by: Adrienne CHU 12/27/2019 04:55 [facility] [id number] 14:19:00 Test Item Value Reference Range Interpretation Comments POC-GLUCOSE METER 232 mg/dL 70-110 H : TESTED A T [facility] 1317 (BEAKER) (test code [address], = 1538) [facility] [address]: Occupational Therapy Assist/Techni artemio ID = [id number] for Berta Servin CT, CTA AAA, W/ GÓMEZ.EXT.[id number] 11:38:00Bilateral lower extremities Addendum BeginsREPORT STATUS:A I agree with the nonvascular findings with exceptions and emphasis as below:*Moderate right and small left pleural effusions are partially visualized.*Large volume ascites.*Diffuse anasarca*The reflux of contrast into the hepatic veins is concerning for volume overload. Signed: Molly Linares MDRtieraort Verified Date/Time: 12/27/2019 11:38:28 Reading Location: [facility] Diagnostic Imaging Reading Room - [place] [address] [address] angiography of the [...] identified. However, significant calcification identified of the belkofski left SFA, for example at image 516, [...] the right popliteal artery is patent, with svlx-jv-rpoqqxnn diffuse calcification identified with no obstructive lesion [...] However, in the distal left SFA, the belkofski artery substantial calcification identified and the stent [...] atherosclerosis identified. 4. In the right, the belkofski right SFA is not filled by contrast [...] dictated regarding the non-vascular findings by the Roll Cutter Radiologist. Signed: Shlomo Dockery BETTIEeport Verified Date/Time: 12/27/2019 07:59:51 Reading Location: [place] [address] CT Reading Room Protein electrophoresis, serum 2019-12-27 [...] as normal/abnormal . ZIA (test code = Occupational Therapy Assist ID - ZIA) LEONIE Jay Lab Interpretation Abnormal (test code = 80811-7) [facility], [id number] 09:29:00 Test Item Value Reference Range Interpretation [...] as normal/abnormal . ZIA (test code = Occupational Therapy Assist ID - ZIA) LEONIE Jay Lab Interpretation Abnormal (test code = 60535-9) [facility] HospitalPROTEIN ELECTROPHORESIS, [id number] 09:29:00 Test Item Value Reference Range Interpretation [...] chronic inflammatory response. No monoclonal bands detected. [id number] Rocio Galindo MD (BEAKER) (test code = (electronic signature) 2616) PROTEIN TOTAL SERUM, 6.3 gm/dL 6.0-8.3 SPEP (BEAKER) (test code = 2660) Occupational Therapy Assist ID - ELONIE FCTA AAA and [id number] 07:59:00Interface, External Ris In - 12/27/2019 11:40 AM CDTAddendum BeginsREPORT STATUS:A I agree with the nonvascular findings with exceptions and emphasis as below:*Moderate right andsmall left pleural effusions are partially visualized.*Large volume ascites.*Diffuse anasarca*The reflux of contrast into the hepatic veins is concerning for volume overload. Signed: Molly Linares MDReport Verified Date/Time: 12/27/2019 11:38:28 Reading Location: [facility] Diagnostic Imaging Reading Room - [place] [address] angiography of the abdominal aorta and runoff, 26-Dec-19 INDICATION: This is a 64 year old female with with lower leg penetrating trauma presents for assessment. TECHNIQUE: Spiral acquisition before and during intravenous contrast administration using a [employer] multidetector CT scanner. Images were obtained [...] identified. However, significant calcification identified of the belkofski left SFA, for example at image 516, [...] the right popliteal artery is patent, with lell-ch-akrmjety diffuse calcification identified with no obstructive lesion [...] However, in the distal left SFA, the belkofski artery substantial calcification identified and the stent [...] atherosclerosis identified. 4. In the right, the belkofski right SFA is not filled by contrast [...] dictated regarding the non-vascular findings by the Roll Cutter Radiologist. Signed: Shlomo Dockery MDReport Verified Date/Time: 12/27/2019 07:59:51 Reading Location: [place] [address] [address] [facility] and [id number] 07:59:00Interface, External Ris In - 12/27/2019 11:40 AM CDTAddendum BeginsREPORT STATUS:A I agree with the nonvascular findings with exceptions and emphasis as below:*Moderate right andsmall left pleural effusions are partially visualized.*Large volume ascites.*Diffuse anasarca*The reflux of contrast into the hepatic veins is concerning for volume overload. Signed: Molly Linaresort Verified Date/Time: 12/27/2019 11:38:28 Reading Location: [facility] Diagnostic Imaging Reading Room - [place] [address] [address] REPORT CT angiography of the [...] identified. However, significant calcification identified of the belkofski left SFA, for example at image 516, [...] the right popliteal artery is patent, with uivc-rp-awfilwon diffuse calcification identified with no obstructive lesion [...] However, in the distal left SFA, the belkofski artery substantial calcification identified and the stent [...] atherosclerosis identified. 4. In the right, the belkofski right SFA is not filled by contrast [...] dictated regarding the non-vascular findings by the Roll Cutter Radiologist. Signed: Shlomo Dockery Verified Date/Time: 12/27/2019 07:59:51 Reading Location: [place] [id number] CT [facility] [id number] 06:56:00 Test Item Value Reference Range Interpretation Comments POC-GLUCOSE METER 39 mg/dL 70-110 LL : Notified RN/MD: TESTED (BEAKER) (test code = AT SLS [address], [facility] [address]: Occupational Therapy Assist/Techni artemio ID = [id number] for Anahi Sherman COMPREHENSIVE METABOLIC [id number] 06:15:00 Test Item Value Reference Range Interpretation [...] S NOT APPLICABLE FOR DIALYSIS PATIEN TS. Occupational Therapy Assist ID - ADMINPOCT-GLUCOSE [id number] 06:01:00 Test Item Value Reference Range Interpretation Comments POC-GLUCOSE METER 55 mg/dL 70-110 L : Notified RN/MD: TESTED (BEAKER) (test code = AT SLS L [address]) PKJoe [facility] [address]: Occupational Therapy Assist/Techni artemio ID = [id number] for Anahi Sherman CBC W/PLT COUNT & AUTO [id number] 05:44:00 Test Item Value Reference Range Interpretation [...] PERCENT (BEAKER) (test code = 2801) POCT-GLUCOSE [id number] 21:03:00 Test Item Value Reference Range Interpretation Comments POC-GLUCOSE METER 278 mg/dL 70-110 H : Notified RN/MD: [facility] (test code AT [facility] [address], [place] [address]: Occupational Therapy Assist/Techni artemio ID = [id number] for Anahi Sherman POCT-GLUCOSE [id number] 16:53:00 Test Item Value Reference Range Interpretation Comments POC-GLUCOSE METER 70 mg/dL 70-110 : [facility] ([facility]) (test code = [address] [facility], 153) [place] [address]: Occupational Therapy Assist/Techni artemio ID = [id number] for Nalini Jean Baptiste POCT-GLUCOSE [id number] 12:11:00 Test Item Value Reference Range Interpretation Comments POC-GLUCOSE METER 97 mg/dL 70-110 : [facility] (test code = [address] [facility], 1538) [place] [address]: Occupational Therapy Assist/Techni artemio ID = [id number] for Akhil hurtado, Rachelleea POCT-GLUCOSE [id number] 06:21:00 Test Item Value Reference Range Interpretation Comments POC-GLUCOSE METER 71 mg/dL 70-110 : [facility] (test code = [address] [facility], 153) [place] [address]: Occupational Therapy Assist/Techni artemio ID = [id number] for Edgardjanis Kolby guallpal COMPREHENSIVE METABOLIC [id number] 05:50:00 Test Item Value Reference Range Interpretation [...] S NOT APPLICABLE FOR DIALYSIS PATIEN TS. Occupational Therapy Assist ID - ADMINCBC W/PLT COUNT & AUTO [id number] 05:17:00 Test Item Value Reference Range Interpretation [...] (BEAKER) (test code = 2801) Prepare Leuko-Red [id number] 23:54:00 Test Item Value Reference Range Interpretation Comments CROSSMATCH (test code = 2264) COMPATIBLE Unit ABO (test code = O Pos 6942812) UNIT NUMBER (test code = [id number] 934-0) Status (test code = 0980752) [place]_TIMEINCHART Blood Bank Product (test code RED BLOOD CELLS = 2263) PRODUCT CODE (test code = B9152R08 933-2) [facility] Leuko-Red [id number] 23:54:00 Test Item Value Reference Range Interpretation Comments CROSSMATCH (test code = 2264) COMPATIBLE Unit ABO (test code = O Pos 6793114) UNIT NUMBER (test code = [id number] 934-0) Status (test code = 2065149) [facility] Blood Bank Product (test code RED BLOOD CELLS = 2263) PRODUCT CODE (test code = A3972Y80 933-2) [facility] HospitalPOCT-GLUCOSE [id number] 21:03:00 Test Item Value Reference Range Interpretation Comments POC-GLUCOSE METER 87 mg/dL 70-110 : TESTED A T [address] (BEAKER) (test code = [address], [address]) [place] [address]: Occupational Therapy Assist/Techni artemio ID = [id number] for Harish iufu, Holly POCT-GLUCOSE [id number] 17:12:00 Test Item Value Reference Range Interpretation Comments POC-GLUCOSE METER 79 mg/dL 70-110 : TESTED A T [address] (BEAKER) (test code = [address], [address]) [place] [address]: Occupational Therapy Assist/Techni artemio ID = [id number] for Nalini Jean Baptiste POCT-GLUCOSE [id number] 11:37:00 Test Item Value Reference Range Interpretation Comments POC-GLUCOSE METER 262 mg/dL 70-110 H : TESTED A T [facility] [address] (BEAKER) (test code [address], = [address]) [place] [address]: Occupational Therapy Assist/Techni artemio ID = [id number] for Nalini Jean Baptiste COMPREHENSIVE METABOLIC [id number] 06:29:00 Test Item Value Reference Range Interpretation [...] S NOT APPLICABLE FOR DIALYSIS PATIEN TS. Occupational Therapy Assist ID - ADMINCBC W/PLT COUNT & AUTO [id number] 06:12:00 Test Item Value Reference Range Interpretation [...] PERCENT (BEAKER) (test code = 2801) POCT-GLUCOSE [id number] 06:09:00 Test Item Value Reference Range Interpretation Comments POC-GLUCOSE METER 83 mg/dL 70-110 : Notified RN/MD: TESTED (BEAKER) (test code = AT SLS L [address]) [place] [address]: Occupational Therapy Assist/Techni artemio ID = [id number] for Anahi Sherman POCT-GLUCOSE [id number] 16:26:00 Test Item Value Reference Range Interpretation Comments POC-GLUCOSE METER 182 mg/dL 70-110 H : Notified RN/MD: TESTED (BEAKER) ([facility] AT [facility] [address] = [address]) [place] [address]: Occupational Therapy Assist/Techni artemio ID = [id number] for Alondra Kelley, [id number] 09:17:00 Test Item Value Reference Range Interpretation Comments Rh Factor (test code = POS 2589) ABO Grouping (test code O PINK TOP 12/24/19 @ 0824 = 2588) [facility] HospitalABORH, [id number] 09:17:00 Test Item Value Reference Range Interpretation Comments Rh Factor (test code = POS 2589) ABO Grouping (test code O PINK TOP 12/24/19 @ 0824 = 2588) [facility] HospitalType and screen, [id number] 07:31:00 Test Item Value Reference Range Interpretation Comments ABO/RH AUTOMATED (BEAKER) (test O POSITIVE ECHO code = 2260) Ab Scrn (test code = 890-4) NEGATIVE ECHO [facility] HospitalType and screen, [id number] 07:31:00 Test Item Value Reference Range Interpretation Comments ABO/RH AUTOMATED (BEAKER) (test O POSITIVE ECHO code = 2260) Ab Scrn (test code = 890-4) NEGATIVE ECHO [facility] HospitalCOMPREHENSIVE METABOLIC [id number] 06:42:00 Test Item Value Reference Range Interpretation [...] S NOT APPLICABLE FOR DIALYSIS PATIEN TS. Occupational Therapy Assist ID - ADMINPOCT-GLUCOSE [id number] 06:23:00 Test Item Value Reference Range Interpretation Comments POC-GLUCOSE METER 88 mg/dL 70-110 : TESTED A T [facility] [address] (BEAKER) (test code = [address], [address]) [facility] [place] [address]: Occupational Therapy Assist/Techni artemio ID = [id number] for Anne Busby CBC W/PLT COUNT & AUTO [id number] 06:23:00 Test Item Value Reference Range Interpretation [...] PERCENT (BEAKER) (test code = 2801) POCT-GLUCOSE [id number] 21:38:00 Test Item Value Reference Range Interpretation Comments POC-GLUCOSE METER 126 mg/dL 70-110 H : TESTED A T [facility] [address] (BEAKER) (test code [facility], = 1538) [facility] [address]: Occupational Therapy Assist/Techni artemio ID = [id number] for Anne Busby POCT-GLUCOSE [id number] 16:54:00 Test Item Value Reference Range Interpretation Comments POC-GLUCOSE METER 89 mg/dL 70-110 : Notified RN/MD: TESTED (BEAKER) (test code = AT [address]LS L [address]) [facility] [address]: Occupational Therapy Assist/Techni artemio ID = [id number] for Alondra Kelley MR, EXTREMITY, LOWER, JOINT, WITHOUT CONTRAST, [id number] 16:10:00Unlisted Reason for Exam - Click Yes [...] MDReport Verified Date/Time: 12/23/2019 16:10:32 Reading Location: [address] Ortho Consult Reading Room MR lower extremity joint only without IV contrast left [id number] 16:10:00Interface, External Ris In - 12/23/2019 4:12 [...] Date/Time: 12/23/2019 16:10:32 Reading Location: [facility] C013X Ortho Consult Reading [facility] joint only without IV contrast [...] MDReport Verified Date/Time: 12/23/2019 16:10:32 Reading Location: [facility] B1 C013X Ortho Consult Reading Room [facility], BRAIN, WITHOUT [id number] 15:43:00Unlisted Reason for Exam - Click Yes [...] Date/Time: 12/23/2019 15:43:24 MR brain without IV [id number] 15:43:00Interface, External Ris In - 12/23/2019 3:45 [...] Signed: Berta Muniz Verified Date/Time: 12/23/2019 15:43:24 [facility] without IV leeknlzh8255-59-16 15:43:00Interface, External Ris In - 12/23/2019 3:45 [...] Berta Muniz Verified Date/Time: 12/23/2019 15:43:24 [facility] ([facility]) 2019-12-23 14:16:00 Test Item Value Reference Range Interpretation Comments SARS-COV2/RT-PCR (test Negative Not Detected, Negative, code = 3681144) See external report for linked test SARS-COV-2 PERFORMING LAB [facility] (test code = 9934934) Negative result for this test determines that [...] 564(g) of the Act.Fact Sheet for Healthcare Providers:https://www.[employer]ista/sites/default/files/product/documents/Fact_Shee w_YB_Xtsazqtyu_Jbuw_JXRT-TiR-9.pdfFact Sheet for Healthcare Patients:https://www.[employer]/sites/default/files/product/ documents/Kkau_Msgbd_Bobeszgv_Rmkj_DLVX-GtX-0.pdfPerforming Laboratory:[facility], [place] [address]Wqbcx / lambda light chains, [id number] 12:25:00 Test Item Value Reference Interpretation Comments Range [address] Lt Chain,Free 474.4 mg/L 3.3-19.4 H (test code = 28685-1) Lambda Lt 225.6 mg/L 5.7-26.3 H Chain,Free (test code = 79558-5) [address]/Lambda,Free 2.1 0.26-1.65 H Free annabelle a/lambda (test [...] = Performing Lab ZIA) EZ [facility] [address] [place] [id number] Jaguar Stein MD, PhD, CORI Lab Interpretation Abnormal (test code = 08866-8) [facility] HospitalKappa / lambda light chains, [id number] 12:25:00 Test Item Value Reference Interpretation Comments [address] Lt Chain,Free 474.4 mg/L 3.3-19.4 H (test code = 80873-6) Lambda Lt 225.6 mg/L 5.7-26.3 H Chain,Free (test code = 13604-7) [address]/Lambda,Free 2.1 0.26-1.65 H Free annabelle a/lambda (test [...] = Performing Lab ZIA) EZ [facility] [address] [place] [address] Jaguar Stein MD, PhD, CORI Lab Interpretation Abnormal (test code = 33237-0) [facility] HospitalPOCT-GLUCOSE [id number] 11:27:00 Test Item Value Reference Range Interpretation Comments POC-GLUCOSE METER 189 mg/dL 70-110 H : Notified RN/MD: TESTED (ROBERT) (test code AT [address] = 1538) [facility] [address]: Occupational Therapy Assist/Techni artemio ID = [id number] for Alondra Kelley ARTERIAL DOPPLER LEGS, [id number] 11:22:00Reason for exam:->non healing ulcer , non [...] severe peripheral arterial disease. Signed:Luis Alberto Monahan Verified Date/Time: 12/23/2019 11:22:31 [facility] Radiology Reading Room Arterial Doppler Legs [id number] 11:22:00 Interface, External Ris In - 12/23/2019 [...] Monahanort Verified Date/Time: 12/23/2019 11:22:31 Reading [facility] Radiology Reading [facility]Ar[facility] Doppler Legs [id number] 11:22:00Interface, External Ris In - 12/23/2019 11:24 [...] MDReport Verified Date/Time: 12/23/2019 11:22:31 Reading [facility] Radiology Reading Room [facility] HospitalCOMPREHENSIVE METABOLIC PANEL 2019-12-23 04:44:00 Test [...] S NOT APPLICABLE FOR DIALYSIS PATIEN TS. Occupational Therapy Assist ID - ADMINCBC W/PLT COUNT & AUTO [id number] 04:35:00 Test Item Value Reference Range Interpretation [...] H PERCENT (BEAKER) (test code = 2801) [id number] 04:29:00 Test Item Value Reference Range Interpretation Comments Ammonia (test code = 36 See_Comment [Autom ated 68722-5) message] The system which generated this result transmit merna reference range : 17 - 80 mol/L . The reference range was not u sed to interpret th is result as normal/abnormal . ZIA (test code = ZIA) Occupational Therapy Assist ID - ADMIN Lab Interpretation Normal (test code = 86613-1) [facility] HospitalAmmonia2020-09-24 04:29:00 Test Item Value Reference Range Interpretation Comments Ammonia (test code = 36 See_Comment [Autom ated 52754-5) message] The system which generated this result transmit merna reference range : 17 - 80 mol/L . The reference range was not u sed to interpret th is result as normal/abnormal . ZIA (test code = ZIA) Occupational Therapy Assist ID - ADMIN Lab Interpretation Normal (test code = 59417-4) [facility] HospitalAMMONIA2020-09-24 04:29:00 Test Item Value Reference Range Interpretation Comments AMMONIA (BEAKER) (test code = 348) 36 mol/L 17-80 Occupational Therapy Assist ID - ADMINPOCT-GLUCOSE [id number] 20:45:00 Test Item Value Reference Range Interpretation Comments POC-GLUCOSE METER 95 mg/dL 70-110 : TESTED A T [facility] [address] (BEAKER) (test code = [address], [address]) [place] [address]: Occupational Therapy Assist/Techni artemio ID = [id number] for Anne Busby POCT-GLUCOSE [id number] 17:08:00 Test Item Value Reference Range Interpretation Comments POC-GLUCOSE METER 107 mg/dL 70-110 : TESTED A T [facility] [address] (BEAKER) (test code [address], = [address]) [place] [address]: Occupational Therapy Assist/Techni artemio ID = [id number] for Jordyn Fonseca POCT-GLUCOSE [id number] 11:55:00 Test Item Value Reference Range Interpretation Comments POC-GLUCOSE METER 135 mg/dL 70-110 H : TESTED A T [facility] [address] (BEAKER) (test code [address], = [address]) [place] [address]: Occupational Therapy Assist/Techni artemio ID = [id number] for Jordyn Fonseca Anti-Nuclear Antibody (ROGER)2019-12-22 11:40:00 Test Item Value Reference Range Interpretation Comments ROGER (test code = 23957-7) Positive Negative A ZIA (test code = ZIA) Test performed by IFA method. Lab Interpretation (test Abnormal code = 24302-2) [facility] HospitalANA Titer & [id number] 11:40:00 Test Item Value Reference Range Interpretation Comments ROGER Titer (test code = 12754-1) 1:40 ROGER Pattern (test code = 1781) Speckled [facility] HospitalAnti-Nuclear Antibody (ROGER)2019-12-22 11:40:00 Test Item Value Reference Range Interpretation Comments ROGER (test code = 41487-8) Positive Negative A ZIA (test code = ZIA) Test performed by IFA method. Lab Interpretation (test Abnormal code = 28587-4) [facility] HospitalANA Titer & [id number] 11:40:00 Test Item Value Reference Range Interpretation Comments ROGER Titer (test code = 83359-7) 1:40 ROGER Pattern (test code = 1781) Speckled [facility] HospitalANTI-NUCLEAR ANTIBODY (ROGER)2019-12-22 11:40:00 Test Item Value Reference Range Interpretation Comments ANTI-NUCLEAR ANTIBODY (ROGER) (BEAKER) Positive Negative A (test code = 418) Test performed by IFA method.ROGER TITER AND [id number] 11:40:00 Test Item Value Reference Range Interpretation Comments ROGER TITER (BEAKER) (test code = :40 1541) ROGER PATTERN (BEAKER) (test code = Speckled 1781) POCT-GLUCOSE [id number] 06:44:00 Test Item Value Reference Range Interpretation Comments POC-GLUCOSE METER 92 mg/dL 70-110 : TESTED A T [facility] [address] (BEAKER) (test code = [address], [address]) [facility] [address]: Occupational Therapy Assist/Techni artemio ID = [id number] for Anne Busby COMPREHENSIVE METABOLIC [id number] 06:35:00 Test Item Value Reference Range Interpretation [...] S NOT APPLICABLE FOR DIALYSIS PATIEN TS. Occupational Therapy Assist ID - ADMINCBC W/PLT COUNT & AUTO [id number] 06:16:00 Test Item Value Reference Range Interpretation [...] PERCENT (BEAKER) (test code = 2801) POCT-GLUCOSE [id number] 20:38:00 Test Item Value Reference Range Interpretation Comments POC-GLUCOSE METER 85 mg/dL 70-110 : TESTED A T [facility] [address] (BEAKER) (test code = [address], [address]) [place] [address]: Occupational Therapy Assist/Techni artemio ID = [id number] for Anne Busby POCT-GLUCOSE [id number] 18:14:00 Test Item Value Reference Range Interpretation Comments POC-GLUCOSE METER 112 mg/dL 70-110 H : TESTED A T [facility] [address] (BEAKER) (test code [address], = 1538) [place] [address]: Occupational Therapy Assist/Techni artemio ID = [id number] for Christina r, Berta POCT-GLUCOSE [id number] 13:00:00 Test Item Value Reference Range Interpretation Comments POC-GLUCOSE METER 77 mg/dL 70-110 : TESTED A T [facility] [address] (BEAKER) (test code = [address], 1538) [place] [address]: Occupational Therapy Assist/Techni artemio ID = [id number] for Christina r, Berta POCT-GLUCOSE [id number] 07:32:00 Test Item Value Reference Range Interpretation Comments POC-GLUCOSE METER 60 mg/dL 70-110 L : TESTED A T [facility] [address] (BEAKER) (test code = [address], 1538) [facility] [address]: Occupational Therapy Assist/Techni artemio ID = [id number] for Marissa Page COMPREHENSIVE METABOLIC [id number] 06:11:00 Test Item Value Reference Range Interpretation [...] S NOT APPLICABLE FOR DIALYSIS PATIEN TS. Occupational Therapy Assist ID - ADMINC-Reactive [id number] 06:06:00 Test Item Value Reference Range Interpretation Comments CRP (test code = 676) 1.63 mg/dL 0-0.5 H ZIA (test code = ZIA) Occupational Therapy Assist ID - ADMIN Lab Interpretation (test Abnormal code = 16980-5) [facility] HospitalC-Reactive [id number] 06:06:00 Test Item Value Reference Range Interpretation Comments CRP (test code = 676) 1.63 mg/dL 0-0.5 H ZIA (test code = ZIA) Occupational Therapy Assist ID - ADMIN Lab Interpretation (test Abnormal code = 55879-0) [facility] HospitalC-REACTIVE [id number] 06:06:00 Test Item Value Reference Range Interpretation Comments C-REACTIVE PROTEIN (BEAKER) (test 1.63 mg/dL 0.00-0.50 H code = 676) Occupational Therapy Assist ID - ADMINPOCT-GLUCOSE [id number] 06:04:00 Test Item Value Reference Range Interpretation Comments POC-GLUCOSE METER 56 mg/dL 70-110 L : Notified RN/MD: TESTED (BEAKER) (test code = AT [address]LS L [address]) [facility] [address] Occupational Therapy Assist/Techni artemio ID = [id number] for Nelda bAdi CBC W/PLT COUNT & AUTO [id number] 05:53:00 Test Item Value Reference Range Interpretation [...] (BEAKER) (test code = 2801) U/S, ABDOMINAL, [id number] 22:02:00Reason for exam:->thrombocytopenia / eval for hepatosplenomegalyFINAL [...] MDReport Verified Date/Time: 12/20/2019 22:02:21 US abdomen [id number] 22:02:00Interface, External Ris In - 12/20/2019 10:04 [...] Marin MDReport Verified Date/Time: 12/20/2019 22:02:21 [facility] [id number] 22:02:00Interface, External Ris In - 12/20/2019 10:04 [...] Signed: Hever Marin MDReport Verified Date/Time:12/20/2019 22:02:21 [facility]PO[facility] [id number] 20:36:00 Test Item Value Reference Range Interpretation Comments POC-GLUCOSE METER 74 mg/dL 70-110 : Notified RN/: TESTED (BEAKER) (test code = AT [facility] L [address]) [facility] [address]: Occupational Therapy Assist/Techni artemio ID = [id number] for Nelda Abdi POCT-GLUCOSE [id number] 17:50:00 Test Item Value Reference Range Interpretation Comments POC-GLUCOSE METER 72 mg/dL 70-110 : TESTED A T [facility] [address] (BEAKER) (test code = [address], 15[address]) [facility] [address]: Occupational Therapy Assist/Techni artemio ID = [id number] for Berta Servin CT, BRAIN, WITHOUT [id number] 16:08:00Unlisted Reason for Exam - Click Yes [...] Date/Time: 12/20/2019 16:08:40 CT brain without IV [id number] 16:08:00Interface, External Ris In - 12/20/2019 4:10 [...] Signed: Berta Muniz Verified Date/Time: 12/20/2019 16:08:40 [facility] [id number] 16:08:00 Interface, External Ris In - 12/20/2019 [...] Signed: Berta Muniz Verified Date/Time: 12/20/2019 16:08:40 [facility], [facility]OT, 2 VIEWS, LEFT 2019-12-20 15:15:00Reason for [...] Monahan Verified Date/Time: 12/20/2019 15:15:25 [facility] Radiology Reading Room , FOOT, 2 VIEWS, [id number] 15:15:00Reason for exam:->Rule out osteomyelitisShould this be [...] Monahan Verified Date/Time: 12/20/2019 15:15:25 Reading [facility] Radiology Reading Room XR foot 2 views [id number] 15:15:00Interface, External Ris In - 12/20/2019 3:17 [...] MDReport Verified Date/Time: 12/20/2019 15:15:25 [facility] foot 2 views [id number] 15:15:00Interface, External Ris In - 12/20/2019 3:17 [...] MDReport Verified Date/Time: 12/20/2019 15:15:25 [facility] Reading [facility] foot 2 views [id number] 15:15:00Interface, External Ris In - 12/20/2019 3:17 [...] MDReport Verified Date/Time: 12/20/2019 15:15:25 [facility] foot 2 views [id number] 15:15:00Interface, External Ris In - 12/20/2019 3:17 [...] MDReport Verified Date/Time: 12/20/2019 15:15:25 Reading Location[facility] Radiology Reading Room [facility] [id number] 14:56:00 Test Item Value Reference Range Interpretation Comments AMMONIA (BEAKER) (test code = 348) 33 mol/L 17-80 Occupational Therapy Assist ID - ADMINBlood gas, [id number] 14:41:00 Test Item Value Reference Range Interpretation Comments pH, Arterial (test code 7.33 7.35-7.45 L = 2744-1) pCO2, Arterial (test 58 See_Comment H [Autom ated message] code = 2019) The system [employer] generated this result transmit merna reference range : 35 - 45 mmHg. The reference range was not used to interpret this result as normal/abnormal . pO2, Arterial (test 109 See_Comment H [Automa merna message] code = 2703-7) The system [employer] generated this result transmit merna reference range [...] % Lab Interpretation Abnormal (test code = 63925-8) [facility], [id number] 14:41:00 Test Item Value Reference Range Interpretation Comments pH, Arterial (test code 7.33 7.35-7.45 L = 2744-1) pCO2, Arterial (test 58 See_Comment H [Autom ated message] code = 2019-) The system [facility] generated this result transmit merna reference range : 35 - 45 mmHg. The reference range was not used to interpret this result as normal/abnormal . pO2, Arterial (test 109 See_Comment H [Automa merna message] code = 2703-7) The system [facility] generated this result transmit merna [...] % Lab Interpretation Abnormal (test code = 61131-6) [facility]BL[facility], [id number] 14:41:00 Test Item Value Reference Range Interpretation [...] code = 1819) 32.0 % Occult blood, [id number] 11:56:00 Test Item Value Reference Range Interpretation Comments Occult blood (test code = 2335-8) Negative Negative Lab Interpretation (test code = Normal 51161-1) [facility] HospitalOccult blood, [id number] 11:56:00 Test Item Value Reference Range Interpretation Comments Occult blood (test code = 2335-8) Negative Negative Lab Interpretation (test code = Normal 99453-8) [facility] HospitalOCCULT BLOOD, [id number] 11:56:00 Test Item Value Reference Range Interpretation Comments FECAL OCCULT BLOOD (BEAKER) (test Negative Negative code = 618) POCT-GLUCOSE [id number] 11:39:00 Test Item Value Reference Range Interpretation Comments POC-GLUCOSE METER 88 mg/dL 70-110 : TESTED A T [address] (BEAKER) (test code = [address], [address]) [facility] [place] [address]: Occupational Therapy Assist/Techni artemio ID = [id number] for Gifty Phelps Swapjdtytis7081-17-86 11:22:00 Test Item Value Reference Range Interpretation Comments Haptoglobin (test code = <8 14-258 L 4542-7) ZIA (test code = ZIA) Occupational Therapy Assist ID - [facility] Lab Interpretation (test Abnormal code = 35716-9) [facility] HospitalHaptoglobin2020-09-21 11:22:00 Test Item Value Reference Range Interpretation Comments Haptoglobin (test code = <8 14-258 L 4542-7) ZIA (test code = ZIA) Occupational Therapy Assist ID - [facility] Lab Interpretation (test Abnormal code = 31517-2) [facility]:22[facility] Test Item Value Reference Range Interpretation Comments HAPTOGLOBIN (BEAKER) (test code = < mg/dL 14-258 L 366) Occupational Therapy Assist ID - LEONIE FT4, [id number] 11:01:00 Test Item Value Reference Range Interpretation Comments Free T4 (test code = 0.52 ng/dL 0.9-1.8 L 3024-7) ZIA (test code = ZIA) Occupational Therapy Assist ID - ADMIN Lab Interpretation (test Abnormal code = 19784-9) [facility] HospitalT, [id number] 11:01:00 Test Item Value Reference Range Interpretation Comments Free T4 (test code = 0.52 ng/dL 0.9-1.8 L 3024-7) ZIA (test code = ZIA) Occupational Therapy Assist ID - ADMIN Lab Interpretation (test Abnormal code = 91119-8) [place] [address], [id number] 11:01:00 Test Item Value Reference Range Interpretation Comments FREE T4 (BEAKER) (test code = 655) 0.52 ng/dL 0.90-1.80 L Occupational Therapy Assist ID - ADMINPeripheral Blood Smear - Path [id number] 08:19:00 Test Item Value Reference Range Interpretation [...] Griffith M.D. code = 2849) (electronic signature) [facility] HospitalPeripheral [facility] Sm[facility] - Path [id number] 08:19:00 Test Item Value Reference Range Interpretation [...] Griffith M.D. code = 2849) (electronic signature) [facility] HospitalPERIPHERAL BLOOD SMEAR - PATHOLOGIST REVIEW 2019-12-20 08:19:00 Test Item Value Reference Range Interpretation Comments RBC MORPHOLOGY Target Cells (BEAKER) (test code = 2846) RBC MORPHOLOGY Basophilic Stippling (BEAKER) (test code = 50767) RBC MORPHOLOGY Nucleated Red Blood Cells (BEAKER) (test code = 66137) PERIPHERAL SMR Normochromic normocytic REVIEW (BEAKER) anemia with a few target (test code = 2640) cells, nucleated RBCs and basophilic stippling. No increase in schistocytes. WBCs normal in number and morphology. Thrombocytopenia with normal platelet morphology. [id number]-606 Jovita Griffith M.D. 2 (BEAKER) (test (electronic signature) code = 2849) Vitamin B12 and [id number] 06:37:00 Test Item Value Reference Range Interpretation Comments Vitamin B12 (test 1431 pg/mL 211-911 H code = 2132-9) Folate (test code = 17.00 ng/mL See_Comment [Automa merna 2284-8) message] The system which generated this result transmit merna reference range : >=5.4. The reference range was not used to interpret this result as normal/abnormal . ZIA (test code = ZIA) Occupational Therapy Assist ID - ADMIN Lab Interpretation Abnormal (test code = 38490-0) [facility] HospitalVitamin B12 and Dtoaim6743-32-57 06:37:00 Test Item Value Reference Range Interpretation Comments Vitamin B12 (test 1431 pg/mL 211-911 H code = 2132-9) Folate (test code = 17.00 ng/mL See_Comment [Automa merna 2284-8) message] The system which generated this result transmit merna reference range : >=5.4. The reference range was not used to interpret this result as normal/abnormal . ZIA (test code = ZIA) Occupational Therapy Assist ID - ADMIN Lab Interpretation Abnormal (test code = 43901-0) [facility] HospitalVITAMIN B12 AND [id number] 06:37:00 Test Item Value Reference Range Interpretation Comments VITAMIN B12 (BEAKER) (test code = 1431 pg/mL 211-911 H 774) FOLATE (BEAKER) (test code = 362) 17.00 ng/mL >=5.4 Occupational Therapy Assist ID - ADMINPOCT-GLUCOSE QQYIG6205-93-04 06:32:00 Test Item Value Reference Range Interpretation Comments POC-GLUCOSE METER 79 mg/dL 70-110 : TESTED A T [address] (BEAKER) (test code = [address], [address]) [facility] [address]: Occupational Therapy Assist/Techni artemio ID = [id number] for Anahi Sherman Obekkvec7052-20-14 06:25:00 Test Item Value Reference Range Interpretation Comments Ferritin (test code = 595.00 ng/mL 10-291 H 2276-4) ZIA (test code = ZIA) Occupational Therapy Assist ID - ADMIN Lab Interpretation (test Abnormal code = 56053-7) [facility] HospitalTSH/Free T4 If Rtuyevisr5452-04-23 06:25:00 Test Item Value Reference Range Interpretation Comments TSH (test code = 21.210 See_Comment H [Automated 25201-7) message] The system which generated this result transmit merna reference range : 0.350 - 5.500 uIU/mL. The reference range was not used to interpret this result as normal/abnormal . ZIA (test code = ZIA) Occupational Therapy Assist ID - ADMIN Lab Interpretation Abnormal (test code = 69892-0) [facility] HospitalFerritin2020-09-21 06:25:00 Test Item Value Reference Range Interpretation Comments Ferritin (test code = 595.00 ng/mL 10-291 H 2276-4) ZIA (test code = ZIA) Occupational Therapy Assist ID - ADMIN Lab Interpretation (test Abnormal code = 84059-7) [facility] HospitalTSH/Free T4 If Tmovwbijr4344-62-54 06:25:00 Test Item Value Reference Range Interpretation Comments TSH (test code = 21.210 See_Comment H [Automated 57896-2) message] The system which generated this result transmit merna reference range : 0.350 - 5.500 uIU/mL. The reference range was not used to interpret this result as normal/abnormal . ZIA (test code = ZIA) Occupational Therapy Assist ID - ADMIN Lab Interpretation Abnormal (test code = 27039-3) [facility] HospitalFERRITIN2020-09-21 06:25:00 Test Item Value Reference Range Interpretation Comments FERRITIN (BEAKER) (test code = 595.00 ng/mL 10.00-291.00 H 361) Occupational Therapy Assist ID - ADMINTSH/FREE T4 IF [id number] 06:25:00 Test Item Value Reference Range Interpretation Comments THYROID STIMULATING HORMONE 21.210 uIU/mL 0.350-5.500 H (BEAKER) (test code = 772) Occupational Therapy Assist ID - PIXJXUoheymmmlx8193-00-20 06:06:00 Test Item Value Reference Range Interpretation Comments Fibrinogen (test code = 340 mg/dL 506-283 7220-7) ZIA (test code = ZIA) Final Information (Auto Output) Lab Interpretation (test Normal code = 41276-1) [facility] HospitalPT/wZII2080-98-25 06:06:00 Test Item Value Reference Interpretation Comments Range Protime (test code = 13.5 See_Comment H [Autom ated 5902-2) message] The system which generated this result transmitted reference range : 9.3 - 12.0 sec. The reference range was not used to interpret this result as normal/abnormal . INR (test code = 1.25 See_Comment [Automated 8351-6) message] The system which generated this result transmitted reference range : <=5.90. The reference range was not used to interpret this result as normal/abnormal . PTT (test code = 38.2 See_Comment H [Automated 04393-9) message] The system which generated this result [...] Output) Lab Interpretation Abnormal (test code = 18308-6) [facility] HospitalFibrinogen2020-09-21 06:06:00 Test Item Value Reference Range Interpretation Comments Fibrinogen (test code = 340 mg/dL 762-513 4451-7) ZIA (test code = ZIA) Final Information (Auto Output) Lab Interpretation (test Normal code = 85647-5) [facility] HospitalPT/uSSG2541-10-04 06:06:00 Test Item Value Reference Interpretation Comments Range Protime (test code = 13.5 See_Comment H [Autom ated 5902-2) message] The system which generated this result transmitted reference range : 9.3 - 12.0 sec. The reference range was not used to interpret this result as normal/abnormal . INR (test code = 1.25 See_Comment [Automated 1071-6) message] The system which generated this result transmitted reference range : <=5.90. The reference range was not used to interpret this result as normal/abnormal . PTT (test code = 38.2 See_Comment H [Automated 19704-7) message] The system which generated this result [...] Output) Lab Interpretation Abnormal (test code = 10472-1) [facility] HospitalFIBRINOGEN2020-09-21 06:06:00 Test Item Value Reference Range Interpretation Comments FIBRINOGEN LEVEL (BEAKER) (test 340 mg/dL 200-400 code = 658) Final Information (Auto Output)PT/[id number] 06:06:00 Test Item Value Reference Range Interpretation [...] = 2502-3) ZIA (test code = ZIA) Occupational Therapy Assist ID - ADMIN Lab Interpretation (test Abnormal code = 75549-9) [facility] HospitalIron, TIBC, % sat. (without ferritin)2019-12-20 05:59:00 Test Item Value Reference Range Interpretation Comments Iron (test code = 2498-4) 92.0 ug/dL 45-170 TIBC (test code = 2500-7) 151 ug/dL 250-550 L Iron % Saturation (test 61 % 20-55 H code = 2502-3) ZIA (test code = ZIA) Occupational Therapy Assist ID - ADMIN Lab Interpretation (test Abnormal code = 24559-7) [facility], TIBC, % SAT. (WITHOUT FERRITIN)2019-12-20 05:59:00 Test Item Value Reference Range Interpretation Comments IRON (BEAKER) (test code = 547) 92.0 ug/dL 45.0-170.0 TOTAL IRON BINDING CAPACITY 151 ug/dL 250-550 L (BEAKER) (test code = 769) IRON % SATURATION (2) (BEAKER) 61 % 20-55 H (test code = 2590) Occupational Therapy Assist ID - ADMINCOMPREHENSIVE METABOLIC [id number] 05:55:00 Test Item Value Reference Range Interpretation [...] S NOT APPLICABLE FOR DIALYSIS PATIEN TS. Occupational Therapy Assist ID - PBKLGA-eynhp4554-84-21 05:46:00 Test Item Value Reference Range Interpretation Comments D-Dimer, Quant (test 1.09 mg/L <0.50 H code = 85409-8) ZIA (test code = ZIA) REGARDING D-DIMER RESULTS: The 98% NPV (Negative Predictive Value) for DVT/PE exclusion is 0.50 mg/L FEU as suggested by the electronic calibration technician and as approved by the FDA.Final Information (Auto Output) Lab Interpretation (test Abnormal code = 67388-6) [facility] HospitalD-adwru9483-54-92 05:46:00 Test Item Value Reference Range Interpretation Comments D-Dimer, Quant (test 1.09 mg/L <0.50 H code = 03849-9) ZIA (test code = ZIA) REGARDING D-DIMER RESULTS: The 98% NPV (Negative Predictive Value) for DVT/PE exclusion is 0.50 mg/L FEU as suggested by the electronic calibration technician and as approved by the FDA.Final Information (Auto Output) Lab Interpretation (test Abnormal code = 21876-8) [facility] HospitalD-WIHNJ7635-76-30 05:46:00 Test Item Value Reference Range Interpretation Comments D-DIMER QUANTITATIVE (BEAKER) (test 1.09 mg/L <0.50 H code = 671) REGARDING D-DIMER RESULTS: The 98% NPV (Negative Predictive Value) for DVT/PE exclusion is 0.50 mg/LFEU as suggested by the electronic calibration technician and as approved by the FDA.Final Information (Auto Output)Reticulocyte [id number] 05:42:00 Test Item Value Reference Range Interpretation Comments % Retic (test code = 26809-0) 5.9 % 0.4-2.9 H Lab Interpretation (test code = Abnormal 23381-0) [facility] HospitalReticulocyte qborj4710-09-90 05:42:00 Test Item Value Reference Range Interpretation Comments % Retic (test code = 27515-7) 5.9 % 0.4-2.9 H Lab Interpretation (test code = Abnormal 82128-3) [facility] HospitalRETICULOCYTE [id number] 05:42:00 Test Item Value Reference Range Interpretation Comments RETICULOCYTE COUNT PCT (BEAKER) (test 5.9 % 0.4-2.9 H code = 575) CBC W/PLT COUNT & AUTO [id number] 05:33:00 Test Item Value Reference Range Interpretation [...] U/L 107-206 ZIA (test code = ZIA) Occupational Therapy Assist ID - ADMIN Lab Interpretation (test Normal code = 00195-4) [facility] HospitalLactate dehydrogenase (LDH)2019-12-19 21:19:00 Test Item Value Reference Range Interpretation Comments LDH (test code = 2532-0) 178 U/L 107-206 ZIA (test code = ZIA) Occupational Therapy Assist ID - ADMIN Lab Interpretation (test Normal code = 33920-2) [facility] HospitalLACTATE DEHYDROGENASE (LDH)2019-12-19 21:19:00 Test Item Value Reference Range Interpretation Comments LACTATE DEHYDROGENASE (BEAKER) (test 178 U/L 107-206 code = 635) Occupational Therapy Assist ID - ADMINPOCT-GLUCOSE [id number] 20:47:00 Test Item Value Reference Range Interpretation Comments POC-GLUCOSE METER 102 mg/dL 70-110 : TESTED A T [address] (BEAKER) (test code [address], = 1538) [place] [id number]: Occupational Therapy Assist/Techni artemio ID = [id number] for Anahi Sherman POCT-GLUCOSE [id number] 16:18:00 Test Item Value Reference Range Interpretation Comments POC-GLUCOSE METER 96 mg/dL 70-110 : TESTED A T [address] (BEAKER) (test code = [address], [address]) [place] [address]: Occupational Therapy Assist/Techni artemio ID = [id number] for Nalini Jean Baptiste Basic Metabolic Oknej0180-84-26 06:26:00 Test Item Value Reference Range Interpretation Comments Sodium (test code = 138 meq/L 634-473 7731-2) Potassium (test code = 3.9 meq/L 3.6-5.5 2823-3) Chloride (test code = 99 meq/L 98-106 2075-0) CO2 (test code = 30 meq/L 20-29 H 8-9) BUN (test code = 47 mg/dL 10-26 H 3094-0) Creatinine (test code 3.04 mg/dL 0.5-1.2 H = 2160-0) Glucose (test code = 82 mg/dL 70-110 2345-7) Calcium (test code = 7.9 mg/dL 8.5-10.5 L 52044-3) EGFR (test code = 15 mL/min/1.73 [place] [address]-0) NOT ACCURATE CREATININE CLEARANCE IN PREDICTING GLOMERULAR FILTRATION RATE . ESTIMATED GFR I S NOT APPLICABLE FOR DIALYSIS PATIENTS. ZIA (test code = ZIA) Occupational Therapy Assist ID - ADMIN Lab Interpretation Abnormal (test code = 62851-9) [facility] Metabolic [id number] 06:26:00 Test Item Value Reference Range Interpretation Comments Sodium (test code = 138 meq/L 427-875 3030-2) Potassium (test code = 3.9 meq/L 3.6-5.5 2823-3) Chloride (test code = 99 meq/L 98-106 2075-0) CO2 (test code = 30 meq/L 20-29 H 2027-9) BUN (test code = 47 mg/dL 10-26 H 3094-0) Creatinine (test code 3.04 mg/dL 0.5-1.2 H = 2160-0) Glucose (test code = 82 mg/dL 70-110 2345-7) Calcium (test code = 7.9 mg/dL 8.5-10.5 L 97711-8) EGFR (test code = 15 mL/min/1.[place] [address]-3) NOT ACCURATE CREATININE CLEARANCE IN PREDICTING GLOMERULAR FILTRATION RATE . ESTIMATED GFR I S NOT APPLICABLE FOR DIALYSIS PATIENTS. ZIA (test code = ZIA) Occupational Therapy Assist ID - ADMIN Lab Interpretation Abnormal (test code = 15862-7) [facility] METABOLIC [id number] 06:26:00 Test Item Value Reference Range Interpretation [...] S NOT APPLICABLE FOR DIALYSIS PATIEN TS. Occupational Therapy Assist ID - ADMINCBC W/PLT COUNT & AUTO [id number] 06:04:00 Test Item Value Reference Range Interpretation [...] PERCENT (BEAKER) (test code = 2801) POCT-GLUCOSE [id number] 05:35:00 Test Item Value Reference Range Interpretation Comments POC-GLUCOSE METER 85 mg/dL 70-110 : Notified RN/MD: [facility] (test code = AT [facility] L [address]) [place] [address]: Occupational Therapy Assist/Techni artemio ID = [id number] for Niraj Zonia POCT-GLUCOSE [id number] 21:46:00 Test Item Value Reference Range Interpretation Comments POC-GLUCOSE METER 125 mg/dL 70-110 H : Notified RN/MD: TESTED ([facility]) [facility] [address]) [place] [address]: Occupational Therapy Assist/Techni artemio ID = [id number] for Niraj , Zonia POCT-GLUCOSE [id number] 16:17:00 Test Item Value Reference Range Interpretation Comments POC-GLUCOSE METER 103 mg/dL 70-110 : TESTED A T [address] ([facility] (test code [facility] NT [facility], = 1538) [place] [address]: Occupational Therapy Assist/Techni artemio ID = [id number] for Akhil hurtado Nalini POCT-GLUCOSE [id number] 07:56:00 Test Item Value Reference Range Interpretation Comments POC-GLUCOSE METER 111 mg/dL 70-110 H : TESTED A T [address] ([facility] (test code [address], = [address]) [place] [address]: Occupational Therapy Assist/Techni artemio ID = [id number] for Nalini Jean Baptiste POCT-GLUCOSE [id number] 06:25:00 Test Item Value Reference Range Interpretation Comments POC-GLUCOSE METER 57 mg/dL 70-110 L : TESTED A T [address] (BEAKER) (test code = [address], [address]) [place] [id number]: Occupational Therapy Assist/Techni artemio ID = [id number] for Brow n, Anne POCT-GLUCOSE [id number] 21:55:00 Test Item Value Reference Range Interpretation Comments POC-GLUCOSE METER 76 mg/dL 70-110 : TESTED A T [address] (BEAKER) (test code = [address], [address]) [place] [id number]: Occupational Therapy Assist/Techni artemio ID = [id number] for Brow n, Anne POCT-GLUCOSE [id number] 18:03:00 Test Item Value Reference Range Interpretation Comments POC-GLUCOSE METER 81 mg/dL 70-110 : TESTED A T [address] (BEAKER) (test code = [address], [address]) [place] [address]: Occupational Therapy Assist/Techni artemio ID = [id number] for Ericka Daniel POCT-GLUCOSE [id number] 12:33:00 Test Item Value Reference Range Interpretation Comments POC-GLUCOSE METER 73 mg/dL 70-110 : TESTED A T [address] (BEAKER) (test code = [address], 1538) [place] [address]: Occupational Therapy Assist/Techni artemio ID = [id number] for Marisela Bolton Hepatitis B surface [id number] 10:49:00 Test Item Value Reference Range Interpretation Comments Hep B S Ab (test code <8.0 See_Comment [Auto mated = 29002-5) message] The system which generated this result transmit merna reference range : <8.0 mIU/mL. Th e reference range was not used to interpret this result as normal/abnormal . ZIA (test code = ZIA) Occupational Therapy Assist ID - LEONIE Jay Lab Interpretation Normal (test code = 25149-3) [facility]Hep[facility] surface bffbgzaq2437-05-23 10:49:00 Test Item Value Reference Range Interpretation Comments Hep B S Ab (test code <8.0 See_Comment [Auto mated = 08808-1) message] The system which generated this result transmit merna reference range : <8.0 mIU/mL. Th e reference range was not used to interpret this result as normal/abnormal . ZIA (test code = ZIA) Occupational Therapy Assist ID - LEONIE Jay Lab Interpretation Normal (test code = 45449-1) [facility] [id number] 10:49:00 Test Item Value Reference Range Interpretation Comments HEPATITIS B SURFACE ANTIBODY < mIU/mL <8.0 (BEAKER) (test code = 647) Occupational Therapy Assist ID Bijal HADLEY epatitis B core antibody, [id number] 10:43:00 Test Item Value Reference Range Interpretation Comments Hep B Core Total Ab Nonreactive Nonreactive (test code = 06686-8) ZIA (test code = ZIA) Occupational Therapy Assist ID Bijal Jay Lab Interpretation (test Normal code = 85497-6) [facility] C uvneocgu5542-94-90 10:43:00 Test Item Value Reference Range Interpretation Comments Hepatitis C Ab (test Nonreactive Nonreactive code = 37046-9) ZIA (test code = ZIA) Occupational Therapy Assist ID Bijal Jay Lab Interpretation (test Normal code = 84123-0) [facility] B core antibody, [id number] 10:43:00 Test Item Value Reference Range Interpretation Comments Hep B Core Total Ab Nonreactive Nonreactive (test code = 09101-3) ZIA (test code = ZIA) Occupational Therapy Assist ID Bijal Jay Lab Interpretation (test Normal code = 16811-9) [facility] [id number] 10:43:00 Test Item Value Reference Range Interpretation Comments Hepatitis C Ab (test Nonreactive Nonreactive code = 48812-4) ZIA (test code = ZIA) Occupational Therapy Assist ID Bijal [facility] Lab Interpretation (test Normal code = 98321-2) [facility] C [id number] 10:43:00 Test Item Value Reference Range Interpretation Comments HEPATITIS C ANTIBODY (BEAKER) Nonreactive Nonreactive (test code = 367) Occupational Therapy Assist ID - LEONIE FHEPATITIS B CORE ANTIBODY, [id number] 10:43:00 Test Item Value Reference Range Interpretation Comments HEPATITIS B CORE TOTAL ANTIBODY Nonreactive Nonreactive (BEAKER) (test code = 497) Occupational Therapy Assist ID - LEONIE FPOCT-GLUCOSE [id number] 06:31:00 Test Item Value Reference Range Interpretation Comments POC-GLUCOSE METER 67 mg/dL 70-110 L : TESTED A T [address] (BEAKER) (test code = [address], [address]) [place] [address]: Occupational Therapy Assist/Techni artemio ID = [id number] for Anne Busby COMPREHENSIVE METABOLIC [id number] 05:10:00 Test Item Value Reference Range Interpretation [...] S NOT APPLICABLE FOR DIALYSIS PATIEN TS. Occupational Therapy Assist ID - ADMINCBC W/PLT COUNT & AUTO [id number] 04:36:00 Test Item Value Reference Range Interpretation [...] PERCENT (BEAKER) (test code = 2801) POCT-GLUCOSE [id number] 21:14:00 Test Item Value Reference Range Interpretation Comments POC-GLUCOSE METER 79 mg/dL 70-110 : TESTED A T [address] (BEAKER) (test code = [address], 1538) [facility] [address]: Occupational Therapy Assist/Techni artemio ID = [id number] for Anne Busby POCT-GLUCOSE [id number] 18:35:00 Test Item Value Reference Range Interpretation Comments POC-GLUCOSE METER 68 mg/dL 70-110 L : Notified RN/MD: TESTED (BEAKER) (test code = AT [address]LS [address]) [facility], [facility] [address]: Occupational Therapy Assist/Techni artemio ID = [id number] for Alondra Kelley SARS-COV2/RT-PCR ([facility])2019-12-16 17:53:00 Test Item Value Reference Range Interpretation Comments SARS-COV2/RT-PCR (test Negative Not Detected, Negative, code = 8081367) See external report for linked test SARS-COV-2 [facility] (test code = 9512417) Negative result for this test determines that [...] 564(g) of the Act.Fact Sheet for Healthcare Providers:https://www.[employer]/sites/default/files/product/documents/Fact_Shee u_[place]_Plixlxslx_Wyut_ELLE-UqB-0.pdfFact Sheet for Healthcare Patients:https://www.[employer]/sites/default/files/product/ documents/Baai_Zqwhd_Fjyjamxb_Laaj_SZXK-UrI-6.pdfPerforming Laboratory:[address] [address], [place] [address]Uezlfwrbm B surface [id number] 16:57:00 Test Item Value Reference Range Interpretation Comments HBsAg Screen (test code = Nonreactive Nonreactive 5195-3) ZIA (test code = ZIA) Occupational Therapy Assist ID - ADMIN Lab Interpretation (test Normal code = 83747-5) [facility] B surface [id number] 16:57:00 Test Item Value Reference Range Interpretation Comments HBsAg Screen (test code = Nonreactive Nonreactive 5195-3) ZIA (test code = ZIA) Occupational Therapy Assist ID - ADMIN Lab Interpretation (test Normal code = 87036-4) [facility] B SURFACE [id number] 16:57:00 Test Item Value Reference Range Interpretation Comments HEPATITIS B SURFACE ANTIGEN (2) Nonreactive Nonreactive (BEAKER) (test code = 2585) Occupational Therapy Assist ID - ADMINANG, TUNNELED CATHETER [id number] 15:06:00Reason for Central Line/PICC?->Need for hemodialysis accessReason [...] the patient's medical record by the nurse. Pulp Grinder: Soto Arias M.D. Business Consultant: none. Approach: Right internal jugular vein Estimated [...] needle into the right atrium. A 4 Nepalese micropuncture sheath was placed and a 0.035 wire was advanced into the IVC. A subcutaneous tunnel was created in the left anterior chest wall by blunt dissection. A 23 cm tip to cuff 15.5 Nepalese Duraflow 2 catheter was brought through the [...] Arias MDReport Verified Date/Time: 12/16/2019 15:06:45Reading [facility] Rad[facility] IR Tunneled Catheter [id number] 15:06:00 Interface, External Ris In - 12/16/2019 [...] the patient's medical record by the nurse. Pulp Grinder: Soto Arias M.D. Ass istant: none. Approach: [...] A 23 cm tip to cuff 15.5 Nepalese Duraflow 2 catheter was brought through the [...] tolerated the procedure well and [facility] in the same condition. Results: Spot radiograph of the chest demonstrates the new dialysis catheter to lie in theexpected position with its tip overlying the superior right atrium. Impression: 1. Successful, uncomplicated placement of a left internal jugular tunneled dialysiscatheter using sonographic and fluoroscopic guidance and conscious sedation. Signed: Soto Arias MDReport Verified Date/Time: 12/16/2019 15:06:45 [facility] 2019-12-16 15:06:00Interface, External Ris [...] the patient's medical record by the nurse. Pulp Grinder: Soto Arias M.D. Business Consultant: none. Approach: Right internal jugular vein Estimated [...] A 23 cm tip to cuff 15.5 Nepalese Duraflow 2 catheter was brought through the [...] MDReport Verified Date/Time: 12/16/2019 15:06:45 [facility] [id number] 14:59:00 Test Item Value Reference Range Interpretation Comments POC-GLUCOSE METER 70 mg/dL 70-110 : Notified RN/MD: TESTED (ROBERT) (test code = AT [facility] L [address]) [facility] [facility] [address]: Occupational Therapy Assist/Techni artemio ID = [id number] for Alondra Kelley POCT-GLUCOSE [id number] 11:13:00 Test Item Value Reference Range Interpretation Comments POC-GLUCOSE METER 72 mg/dL 70-110 : Notified RN/MD: TESTED (ROBERT) (test code = AT [facility] L [address]) [place] [address]: Occupational Therapy Assist/Techni artemio ID = [id number] for Alondra Kelley RAD, CHEST, 1 VIEW, NON [id number] 09:20:00Reason for exam:->fallShould this be performed at [...] MDReport Verified Date/Time: 12/16/2019 09:20:06 [facility] Rad[facility] Reading Room XR chest 1 view portable / [id number] 09:20:00Interface, External Ris In - 12/16/2019 9:22 [...] MDReport Verified Date/Time: 12/16/2019 09:20:06 [facility] Reading Room Electronically yeimi d by: SOTO ARIAS MD on 12/16/2019 09:20 [facility] XR chest 1 view portable / [id number] 09:20:00Interface, External Ris In - 12/16/2019 9:22 [...] MDReport Verified Date/Time: 12/16/2019 09:20:06 [facility] 2019-12-16 06:03:00 Test Item Value Reference Range Interpretation Comments POC-GLUCOSE METER 74 mg/dL 70-110 : Notified RN/MD: TESTED (BEAKER) (test code = AT [facility] [address]) [facility] [address]: Occupational Therapy Assist/Techni artemio ID = [id number] for Zonia Healy BASIC METABOLIC [id number] 05:08:00 Test Item Value Reference Range Interpretation [...] S NOT APPLICABLE FOR DIALYSIS PATIEN TS. Occupational Therapy Assist ID - ADMINProthrombin time/[id number] 05:01:00 Test Item Value Reference Interpretation Comments Range Protime (test code = 14.1 See_Comment H [Autom ated 1112-2) message] The system which generated this result transmitted reference range : 9.3 - 12.0 sec. The reference range was not used to interpret this result as normal/abnormal . INR (test code = 1.31 See_Comment [Automated 4141-6) message] The system which generated this result [...] Output) Lab Interpretation Abnormal (test code = 13339-8) [facility]th[facility]/[id number] 05:01:00 Test Item Value Reference Interpretation Comments [...] Output) Lab Interpretation Abnormal (test code = 37877-8) [facility] HospitalPROTHROMBIN TIME/[id number] 05:01:00 Test Item Value Reference Range Interpretation [...] Information (Auto Output)CBC W/PLT COUNT & AUTO [id number] 04:46:00 Test Item Value Reference Range Interpretation [...] PERCENT (BEAKER) (test code = 2801) POCT-GLUCOSE [id number] 17:13:00 Test Item Value Reference Range Interpretation Comments POC-GLUCOSE METER 220 mg/dL 70-[address] [facility] 6720 (BEAKER) (test code = JULIANO REYEZ 1538) [address] BASIC METABOLIC [id number] 15:47:00 Test Item Value Reference Range Interpretation [...] NOT APPLICABLE FOR DIALYSIS PATIEN TS. POCT-GLUCOSE [id number] 11:30:00 Test Item Value Reference Range Interpretation Comments POC-GLUCOSE METER 268 mg/dL 70-110 H TESTED AT [place] [address] ([facility]) (test code = [facility] 1538) [address] POCT-GLUCOSE [id number] 07:08:00 Test Item Value Reference Range Interpretation Comments POC-GLUCOSE METER 208 mg/dL 70-110 H TESTED AT [place] [address] ([facility]) (test code = [facility] 1538) [address] CALCIUM, [id number] 06:47:00 Test Item Value Reference Range Interpretation Comments CALCIUM IONIZED (BEAKER) (test 1.11 mmol/L 1.12-1.27 L code = 698) PH, BLOOD (BEAKER) (test code = 7.40 1810) BASIC METABOLIC [id number] 06:40:00 Test Item Value Reference Range Interpretation [...] S NOT APPLICABLE FOR DIALYSIS PATIEN TS. [id number] 06:33:00 Test Item Value Reference Range Interpretation Comments PHOSPHORUS (BEAKER) (test code = 5.1 mg/dL 2.3-4.7 H 604) [id number] 06:33:00 Test Item Value Reference Range Interpretation Comments MAGNESIUM (BEAKER) (test code = 2.0 mg/dL 1.6-2.6 627) LACTIC ACID, VENOUS, WHOLE [id number] 06:02:00 Test Item Value Reference Range Interpretation Comments LACTATE BLOOD VENOUS (2) (BEAKER) 0.8 mmol/L 0.5-2.2 (test code = 2872) Effective 08/02/2015: Units/Reference Range ChangeNew: 0.5-2.2 mmol/L Previous: 5-20 mg/dLCBC W/PLT COUNT & AUTO [id number] 05:54:00 Test Item Value Reference Range Interpretation [...] PERCENT (BEAKER) (test code = 2801) POCT-GLUCOSE [id number] 21:30:00 Test Item Value Reference Range Interpretation Comments POC-GLUCOSE METER 248 mg/dL 70-[address] [facility] 6720 (BEAKER) (test code = JULIANO REYE[place] 1538) [address] RAD, [id number] 21:22:00Reason for exam:->fall, tailbone painFINAL REPORT RAD, [...] MDReport Verified Date/Time: 09/04/2017 21:22:03 Reading Location: [address] Reading Room POCT-GLUCOSE [id number] 17:37:00 Test Item Value Reference Range Interpretation Comments POC-GLUCOSE METER 222 mg/dL 70-110 H TESTED AT [place] [address] ([facility]) (test code = [facility] [employer] [facility] 1538) [address] POCT-GLUCOSE [id number] 13:55:00 Test Item Value Reference Range Interpretation Comments POC-GLUCOSE METER 194 mg/dL 70-110 H TESTED AT [place] [address] ([facility]) (test code = [facility] 1538) [address] POCT-GLUCOSE [id number] 12:34:00 Test Item Value Reference Range Interpretation Comments POC-GLUCOSE METER 229 mg/dL 70-110 H TESTED AT [place] [address] ([facility]) (test code = [facility] 1538) [address] POCT-GLUCOSE [id number] 08:00:00 Test Item Value Reference Range Interpretation Comments POC-GLUCOSE METER 159 mg/dL 70-110 H TESTED AT [place] [address] ([facility]) (test code = [facility] 1538) [address] CALCIUM, [id number] 06:00:00 Test Item Value Reference Range Interpretation Comments CALCIUM IONIZED ([facility]) (test 1.05 mmol/L 1.12-1.27 L code = 698) PH, BLOOD ([facility]) (test code = 7.45 1810) [id number] 05:59:00 Test Item Value Reference Range Interpretation Comments PHOSPHORUS (BEAKER) (test code = 4.8 mg/dL 2.3-4.7 H 604) [id number] 05:59:00 Test Item Value Reference Range Interpretation Comments MAGNESIUM (BEAKER) (test code = 2.0 mg/dL 1.6-2.6 627) BASIC METABOLIC [id number] 05:59:00 Test Item Value Reference Range Interpretation [...] = 380) CBC W/PLT COUNT & AUTO [id number] 05:32:00 Test Item Value Reference Range Interpretation [...] PERCENT (BEAKER) (test code = 2801) POCT-GLUCOSE [id number] 20:36:00 Test Item Value Reference Range Interpretation Comments POC-GLUCOSE METER 211 mg/dL 70-[address] [facility] 6720 (BEAKER) (test code = JULIANO Osborne [place] 1538) [address] CREATININE, RANDOM [id number] 19:55:00 Test Item Value Reference Range Interpretation Comments CREATININE URINE (BEAKER) (test 16.1 mg/dL code = 375) Reference Range: No NormalsPROTEIN, RANDOM [id number] 19:55:00 Test Item Value Reference Range Interpretation Comments PROTEIN, URINE (BEAKER) (test code 102 mg/dL 0-14 H = 1569) POCT-GLUCOSE [id number] 18:04:00 Test Item Value Reference Range Interpretation Comments POC-GLUCOSE METER 177 mg/dL 70-110 H TESTED AT [place] [address] ([facility]) (test code = [facility] 1538) [address] POCT-GLUCOSE [id number] 11:59:00 Test Item Value Reference Range Interpretation Comments POC-GLUCOSE METER 244 mg/dL 70-110 H TESTED AT [place] [address] ([facility]) (test code = [facility] 1538) [address] POCT-GLUCOSE [id number] 07:53:00 Test Item Value Reference Range Interpretation Comments POC-GLUCOSE METER 160 mg/dL 70-110 H TESTED AT [place] [address] ([facility]) (test code = [facility] 1538) [address] BASIC METABOLIC [id number] 05:29:00 Test Item Value Reference Range Interpretation [...] S NOT APPLICABLE FOR DIALYSIS PATIEN TS. [id number] 05:21:00 Test Item Value Reference Range Interpretation Comments MAGNESIUM (BEAKER) (test code = 2.1 mg/dL 1.6-2.6 627) HEPATIC FUNCTION [id number] 05:21:00 Test Item Value Reference Range Interpretation [...] code = 23 U/L 6-55 347) TROPONIN [id number] 05:18:00 Test Item Value Reference Range Interpretation [...] PERCENT (BEAKER) (test code = 2801) TROPONIN [id number] 23:40:00 Test Item Value Reference Range Interpretation [...] acidosis, acute neurological disease, and persistent tachyarrhythmia.POCT-GLUCOSE [id number] 22:51:00 Test Item Value Reference Range Interpretation Comments POC-GLUCOSE METER 214 mg/dL 70-[address] [facility] 6720 (BEAKER) (test code = JULIANO [place] 1538) [address] RAD, CHEST, 1 VIEW, NON [id number] 21:42:00Reason for exam:->CHEST PAINShould this be performed at the bedside?->YesFINAL REPORT RAD, CHEST, 1 VIEW, NON DEPT INDICATION: CHEST PAIN COMPARISON: Chest x-ray 4 weeks ago TECHNIQUE: Single frontal view of the chest. IMPRESSION:Cardiomegaly.Mild pulmonary interstitial edema with a small right- sided effusion.No acute osseous abnormality. Signed: Dario Abraham MDReport Verified Date/Time: 09/02/2017 21:42:11 Reading Location: [address] Reading Room CREATININE, RANDOM [id number] 21:10:00 Test Item Value Reference Range Interpretation Comments CREATININE URINE (BEAKER) (test 35.5 mg/dL code = 375) Reference Range: No NormalsSODIUM, RANDOM [id number] 21:10:00 Test Item Value Reference Range Interpretation Comments SODIUM URINE (BEAKER) (test code = 80 meq/L 243) Reference Range: No NormalsURINALYSIS W/ [id number] 20:59:00 Test Item Value Reference Range Interpretation [...] code = 514) SOURCE(BEAKER) (test code = 4542) BASIC METABOLIC [id number] 16:49:00 Test Item Value Reference Range Interpretation [...] S NOT APPLICABLE FOR DIALYSIS PATIEN TS. [id number] 16:38:00 Test Item Value Reference Range Interpretation [...] (BEAKER) (test code = 700) BASIC METABOLIC [id number] 13:43:00 Test Item Value Reference Range Interpretation [...] NOT APPLICABLE FOR DIALYSIS PATIEN TS. POCT-GLUCOSE [id number] 12:44:00 Test Item Value Reference Range Interpretation Comments POC-GLUCOSE METER 283 mg/dL 70-[address] [facility] 6720 (BEAKER) (test code = MATTHIASAMANDA [place] 1538) [address] CALCIUM, [id number] 07:03:00 Test Item Value Reference Range Interpretation Comments CALCIUM IONIZED (BEAKER) (test 1.02 mmol/L 1.12-1.27 L code = 698) PH, BLOOD (BEAKER) (test code = 7.43 1810) [id number] 05:28:00 Test Item Value Reference Range Interpretation Comments PHOSPHORUS (BEAKER) (test code = 3.3 mg/dL 2.3-4.7 604) [id number] 05:28:00 Test Item Value Reference Range Interpretation Comments MAGNESIUM (BEAKER) (test code = 1.5 mg/dL 1.6-2.6 L 627) BASIC METABOLIC [id number] 05:28:00 Test Item Value Reference Range Interpretation [...] PATIEN TS. CBC W/PLT COUNT & AUTO [id number] 05:06:00 Test Item Value Reference Range Interpretation [...] PERCENT (BEAKER) (test code = 2801) POCT-GLUCOSE [id number] 21:08:00 Test Item Value Reference Range Interpretation Comments POC-GLUCOSE METER 202 mg/dL 70-[address] [facility] 6720 (BEAKER) (test code = JULIANO REYE[place] 1538) [address] POCT-GLUCOSE [id number] 16:50:00 Test Item Value Reference Range Interpretation Comments POC-GLUCOSE METER 287 mg/dL 70-[address] [facility] 6720 (BEAKER) (test code = JULIANO Osborne [place] 1538) [address] POCT-GLUCOSE [id number] 12:21:00 Test Item Value Reference Range Interpretation Comments POC-GLUCOSE METER 213 mg/dL 70-[address] [facility] 6720 (BEAKER) (test code = JULIANO Osborne [place] 1538) [address] POCT-GLUCOSE [id number] 08:28:00 Test Item Value Reference Range Interpretation Comments POC-GLUCOSE METER 178 mg/dL 70-[address] [facility] 6720 (BEAKER) (test [facility] = [facility] [place] 1538) [address] CALCIUM, [id number] 07:06:00 Test Item Value Reference Range Interpretation Comments CALCIUM IONIZED (BEAKER) (test 0.99 mmol/L 1.12-1.27 L code = 698) PH, BLOOD (BEAKER) (test code = 7.42 1810) [id number] 05:37:00 Test Item Value Reference Range Interpretation Comments PHOSPHORUS (BEAKER) (test code = 3.5 mg/dL 2.3-4.7 604) [id number] 05:37:00 Test Item Value Reference Range Interpretation Comments MAGNESIUM (BEAKER) (test code = 1.6 mg/dL 1.6-2.6 627) BASIC METABOLIC [id number] 05:37:00 Test Item Value Reference Range Interpretation [...] PATIEN TS. CBC W/PLT COUNT & AUTO [id number] 05:07:00 Test Item Value Reference Range Interpretation [...] PERCENT (AKER) (test code = 2801) POCT-GLUCOSE [id number] 21:24:00 Test Item Value Reference Range Interpretation Comments POC-GLUCOSE METER 255 mg/dL 70-[address] [facility] 67 ([facility]) (test code = [facility] [employer] [facility] 1538) [address] POCT-GLUCOSE [id number] 17:11:00 Test Item Value Reference Range Interpretation Comments POC-GLUCOSE METER 244 mg/dL 70-110 H TESTED AT [place] [address] ([facility]) (test code = [facility] [employer] [facility] 1538) [address] POCT-GLUCOSE [id number] 11:54:00 Test Item Value Reference Range Interpretation Comments POC-GLUCOSE METER 209 mg/dL 70-110 H TESTED AT [place] [address] ([facility]) (test code = [employer] [facility] 1538) [address] POCT-GLUCOSE [id number] 08:15:00 Test Item Value Reference Range Interpretation Comments POC-GLUCOSE METER 132 mg/dL 70-110 H TESTED AT [place] [address] ([facility]) (test code = [employer] [facility] 1538) [address] RAD, CHEST, 1 VIEW, NON [id number] 07:44:00Reason for exam:->edemaShould this be performed at the bedside?->YesFINAL REPORT Chest one view AP 08/07/2017 7:44 AM CLINICAL INDICATION: edema COMPARISON: 05/31/2017 IMPRESSION: Cardiomediastinal contours are stable. There is mild pulmonary edema,asymmetric to the right. There are trace bilateral pleural effusions, with bibasilar linear atelectasis. Sternotomy wires remain midline. Signed: Regan Cespedes Verified Date/Time: 08/07/2017 07:44:22 Reading Location: [facility] Radiology Reading Room [id number] 05:30:00 Test Item Value Reference Range Interpretation Comments FERRITIN (BEAKER) (test code = 361) 87 ng/mL 5-275 CBC W/PLT COUNT & AUTO [id number] 05:21:00 Test Item Value Reference Range Interpretation [...] % 20-55 L (test code = 2590) [id number] 05:11:00 Test Item Value Reference Range Interpretation Comments PHOSPHORUS (BEAKER) (test code = 3.6 mg/dL 2.3-4.7 604) [id number] 05:11:00 Test Item Value Reference Range Interpretation Comments MAGNESIUM (BEAKER) (test code = 2.0 mg/dL 1.6-2.6 627) BASIC METABOLIC [id number] 05:11:00 Test Item Value Reference Range Interpretation [...] H (BEAKER) (test code = 700) CALCIUM, [id number] 04:58:00 Test Item Value Reference Range Interpretation Comments CALCIUM IONIZED (BEAKER) (test 1.04 mmol/L 1.12-1.27 L code = 698) PH, BLOOD (BEAKER) (test code = 7.41 1810) RETICULOCYTE [id number] 04:51:00 Test Item Value Reference Range Interpretation Comments RETICULOCYTE COUNT PCT (BEAKER) (test 1.2 % 0.5-1.7 code = 575) POCT-GLUCOSE [id number] 20:49:00 Test Item Value Reference Range Interpretation Comments POC-GLUCOSE METER 202 mg/dL 70-[address] [facility] 6720 (BEAKER) (test code = [facility] 1538) [address] CREATININE, RANDOM [id number] 18:38:00 Test Item Value Reference Range Interpretation Comments CREATININE URINE (BEAKER) (test 56.3 mg/dL code = 375) Reference Range: No NormalsPROTEIN, RANDOM [id number] 18:38:00 Test Item Value Reference Range Interpretation Comments PROTEIN, URINE (BEAKER) (test code 189 mg/dL 0-14 H = 1569) URINALYSIS W/ [id number] 18:34:00 Test Item Value Reference Range Interpretation [...] 516) SOURCE(BEAKER) (test code = Urine, Voided 3317) POCT-GLUCOSE [id number] 17:38:00 Test Item Value Reference Range Interpretation Comments POC-GLUCOSE METER 143 mg/dL 70-110 H [facility] [place] [address] [facility] (test code = JULIANO Osborne [facility] 1538) [address] POCT-GLUCOSE [id number] 12:30:00 Test Item Value Reference Range Interpretation Comments POC-GLUCOSE METER 218 mg/dL 70-110 H [facility]ED AT [place] [address] [facility] 1538) [address] POCT-GLUCOSE [id number] 08:00:00 Test Item Value Reference Range Interpretation Comments POC-GLUCOSE METER 134 mg/dL 70-110 H TESTED AT [place] [address] [facility] ([facility] = [facility] 1538) [address] CBC W/PLT COUNT & AUTO [id number] 04:23:00 Test Item Value Reference Range Interpretation [...] (BEAKER) (test code = 2801) BASIC METABOLIC [id number] 04:13:00 Test Item Value Reference Range Interpretation [...] S NOT APPLICABLE FOR DIALYSIS PATIEN TS. [id number] 04:10:00 Test Item Value Reference Range Interpretation Comments PHOSPHORUS (BEAKER) (test code = 4.9 mg/dL 2.3-4.7 H 604) [id number] 04:10:00 Test Item Value Reference Range Interpretation Comments MAGNESIUM (BEAKER) (test code = 1.4 mg/dL 1.6-2.6 L 627) [id number] 04:08:00 Test Item Value Reference Range Interpretation Comments FIBRINOGEN LEVEL (BEAKER) (test 548 mg/dl 225-434 H code = 658) [id number] 04:08:00 Test Item Value Reference Range Interpretation Comments PARTIAL THROMBOPLASTIN TIME 37.7 seconds 22.5-36.0 H (BEAKER) (test code = 760) PROTHROMBIN [id number] 04:07:00 Test Item Value Reference Range Interpretation Comments PROTIME (BEAKER) (test code = 16.2 seconds 11.7-14.7 H 759) INR (BEAKER) (test code = 370) 1.3 <=5.9 RECOMMENDED COUMADIN/WARFARIN INR THERAPY RANGESSTANDARD DOSE: 2.0 - 3.0 Includes: PROPHYLAXIS forvenous thrombosis, systemic embolization; TREATMENT for venous thrombosis and/or pulmonary embolus.HIGH RISK: Target INR is 2.5-3.5 for patients with mechanical heart valves.[id number] 16:59:00 Test Item Value Reference Range Interpretation Comments ACTIVATED CLOTTING TIME 219 [address] [facility] 6720 [facility] (test code = [place]IANO [place] [address]) [address] BASIC METABOLIC [id number] 14:25:00 Test Item Value Reference Range Interpretation [...] NOT APPLICABLE FOR DIALYSIS PATIEN TS. POCT-GLUCOSE [id number] 13:21:00 Test Item Value Reference Range Interpretation Comments POC-GLUCOSE METER 170 mg/dL 70-[address] [facility] 6720 (BEAKER) (test code = JULIANO Osborne [place] 1538) [address] POTASSIUM-STAT [id number] 13:20:00 Test Item Value Reference Range Interpretation Comments POTASSIUM (BEAKER) (test code = 4.2 meq/L 3.6-5.5 379) SODIUM NA-STAT [id number] 13:20:00 Test Item Value Reference Range Interpretation Comments SODIUM (BEAKER) (test code = 381) 133 meq/L 135-148 L HGB/HCT (H&H) - STAT [id number] 12:34:00 Test Item Value Reference Range Interpretation Comments HEMOGLOBIN (BEAKER) (test code = 10.8 g/dL 12.0-15.0 L 410) HEMATOCRIT (BEAKER) (test code = 32.0 % 36.0-45.0 L 411) POTASSIUM-STAT [id number] 08:15:00 Test Item Value Reference Range Interpretation Comments POTASSIUM (BEAKER) (test code = 4.1 meq/L 3.6-5.5 379) BLOOD GAS, [id number] 08:15:00 Test Item Value Reference Range Interpretation [...] code = 1819) 70.0 % SODIUM NA-STAT [id number] 08:15:00 Test Item Value Reference Range Interpretation Comments SODIUM (BEAKER) (test code = 381) 130 meq/L 135-148 L GLUCOSE-STAT [id number] 08:15:00 Test Item Value Reference Range Interpretation Comments GLUCOSE RANDOM (BEAKER) (test code 172 mg/dL 70-110 H = 652) HGB/HCT (H&H) - STAT [id number] 08:15:00 Test Item Value Reference Range Interpretation Comments HEMOGLOBIN (BEAKER) (test code = 8.8 g/dL 12.0-15.0 L 410) HEMATOCRIT (BEAKER) (test code = 26.0 % 36.0-45.0 L 411) BASIC METABOLIC [id number] 07:37:00 Test Item Value Reference Range Interpretation [...] PATIEN TS. CBC W/PLT COUNT & AUTO [id number] 07:20:00 Test Item Value Reference Range Interpretation [...] PERCENT (BEAKER) (test code = 2801) POCT-GLUCOSE [id number] 07:03:00 Test Item Value Reference Range Interpretation Comments POC-GLUCOSE METER 186 mg/dL 70-[address] [facility] [facility] 6720 (BEAKER) (test code = JULIANO RUTH [place] 1538) [address] B-TYPE NATRIURETIC FACTOR (BNP)2017-06-10 12:44:00 Test Item Value Reference Range Interpretation Comments B-TYPE NATRIURETIC PEPTIDE 1264 pg/mL 0-100 H (BEAKER) (test code = 700) [id number] 12:36:00 Test Item Value Reference Range Interpretation Comments MAGNESIUM (BEAKER) (test code = 1.6 mg/dL 1.6-2.6 627) BASIC METABOLIC [id number] 12:36:00 Test Item Value Reference Range Interpretation [...] NOT APPLICABLE FOR DIALYSIS PATIEN TS. POCT-GLUCOSE [id number] 12:04:00 Test Item Value Reference Range Interpretation Comments POC-GLUCOSE METER 274 mg/dL 70-[address] [facility] 6720 ([facility] (test code = [facility] Dylon [place] 1538) [address] POCT-GLUCOSE [id number] 07:21:00 Test Item Value Reference Range Interpretation Comments POC-GLUCOSE METER 137 mg/dL 70-[address] [facility] 6720 ([facility]) (test code = [facility] 1538) [address] BASIC METABOLIC [id number] 05:10:00 Test Item Value Reference Range Interpretation [...] (BEAKER) (test code = 412) PLATELET COUNT ([facility]) (test 320 K/CU MM 150-450 code = 756) MEAN PLATELET VOLUME (BEAKER) 9.5 fL 9.4-12.3 (test code = 754) NUCLEATED RED BLOOD CELLS 0 /100 WBC 0-0 ([facility]) (test code = 413) POCT-GLUCOSE [id number] 21:23:00 Test Item Value Reference Range Interpretation Comments POC-GLUCOSE METER 240 mg/dL 70-110 H TESTED AT [place] [address] ([facility]) (test code = MATTHIASAMANDA Osborne [facility] 1538) [address] POCT-GLUCOSE [id number] 16:42:00 Test Item Value Reference Range Interpretation Comments POC-GLUCOSE METER 234 mg/dL 70-110 H TESTED AT [place] [address] ([facility]) (test code = JULIANO Dylon [facility] 1538) [address] POCT-GLUCOSE [id number] 13:22:00 Test Item Value Reference Range Interpretation Comments POC-GLUCOSE METER 166 mg/dL 70-110 H TESTED AT [place] [address] ([facility]) (test code = [facility] Dylon [facility] 1538) [address] RAD, CHEST, 1 VIEW, NON [id number] 09:43:00Reason for exam:->s/p ACBShould this be performed [...] Ring MDReport Verified Date/Time: 05/31/2017 09:43:30 ReadingLocation: [facility] B1 C013X Ortho Consult Reading Room POCT-GLUCOSE [id number] 06:57:00 Test Item Value Reference Range Interpretation Comments POC-GLUCOSE METER 136 mg/dL 70-[address] [facility] 6720 (BEAKER) (test code = JULIANO RUTH [place] 1538) [address] CALCIUM, [id number] 06:41:00 Test Item Value Reference Range Interpretation Comments CALCIUM IONIZED (BEAKER) (test 1.10 mmol/L 1.12-1.27 L code = 698) PH, BLOOD (BEAKER) (test code = 7.42 1810) [id number] 06:17:00 Test Item Value Reference Range Interpretation Comments PHOSPHORUS (BEAKER) (test code = 3.3 mg/dL 2.3-4.7 604) [id number] 06:17:00 Test Item Value Reference Range Interpretation Comments MAGNESIUM (BEAKER) (test code = 1.8 mg/dL 1.6-2.6 627) BASIC METABOLIC [id number] 06:17:00 Test Item Value Reference Range Interpretation [...] PATIEN TS. CBC W/PLT COUNT & AUTO [id number] 05:07:00 Test Item Value Reference Range Interpretation [...] PERCENT (BEAKER) (test code = 2801) POCT-GLUCOSE [id number] 20:56:00 Test Item Value Reference Range Interpretation Comments POC-GLUCOSE METER 196 mg/dL 70-[address] [facility] 6720 ([facility] (test code = [facility] 1538) [address] POCT-GLUCOSE [id number] 16:42:00 Test Item Value Reference Range Interpretation Comments POC-GLUCOSE METER 196 mg/dL 70-[address] [facility] 6720 ([facility]) (test code = [facility] 1538) [address] POCT-GLUCOSE [id number] 11:45:00 Test Item Value Reference Range Interpretation Comments POC-GLUCOSE METER 215 mg/dL 70-[address] [facility] 6720 ([facility] (test code = [facility] 1538) [address] RAD, CHEST, 1 VIEW, NON [id number] 11:15:00Reason for exam:->s/p ACBShould this be performed at the bedside?->YesFINAL REPORT Chest one view compared to May 28, 2017 Discussion: Airspace opacities are seen in both lower lung regions, probably atelectasis. Correlate clinically for infection. I could not exclude small effusions. No pneumothorax. Upper lungs clear. Signed: Jeannette Nava Verified Date/Time: 05/30/2017 11:15:07 Reading Location: [facility] Radiology Reading Room CALCIUM, [id number] 09:21:00 Test Item Value Reference Range Interpretation Comments CALCIUM IONIZED (BEAKER) (test 1.11 mmol/L 1.12-1.27 L code = 698) PH, BLOOD (BEAKER) (test code = 7.36 1810) BASIC METABOLIC [id number] 07:37:00 Test Item Value Reference Range Interpretation [...] S NOT APPLICABLE FOR DIALYSIS PATIEN TS. [id number] 07:28:00 Test Item Value Reference Range Interpretation Comments PHOSPHORUS (BEAKER) (test code = 3.8 mg/dL 2.3-4.7 604) [id number] 07:28:00 Test Item Value Reference Range Interpretation Comments MAGNESIUM (BEAKER) (test code = 1.9 mg/dL 1.6-2.6 627) CBC W/PLT COUNT & AUTO [id number] 07:26:00 Test Item Value Reference Range Interpretation [...] PERCENT (BEAKER) (test code = 2801) POCT-GLUCOSE [id number] 07:21:00 Test Item Value Reference Range Interpretation Comments POC-GLUCOSE METER 146 mg/dL 70-[address] [facility] 6720 ([facility] ([facility] 1538) [address] POCT-GLUCOSE [id number] 22:02:00 Test Item Value Reference Range Interpretation Comments POC-GLUCOSE METER 201 mg/dL 70-[address] [facility] 6720 ([facility] (test code = [facility] 1538) [address] POCT-GLUCOSE [id number] 18:27:00 Test Item Value Reference Range Interpretation Comments POC-GLUCOSE METER 240 mg/dL 70-110 H TESTED AT [place] [address] (BEAKER) (test code = [facility] Dylon [facility] 1538) [address] POCT-GLUCOSE [id number] 12:13:00 Test Item Value Reference Range Interpretation Comments POC-GLUCOSE METER 193 mg/dL 70-110 H TESTED AT [place] [address] (BEAKER) (test code = [facility] 1538) [address] POCT-GLUCOSE [id number] 09:02:00 Test Item Value Reference Range Interpretation Comments POC-GLUCOSE METER 132 mg/dL 70-110 H TESTED AT [place] [address] ([facility]) (test code = [facility] 1538) [address] CALCIUM, [id number] 05:42:00 Test Item Value Reference Range Interpretation Comments CALCIUM IONIZED (BEAKER) (test 1.12 mmol/L 1.12-1.27 code = 698) PH, BLOOD (BEAKER) (test code = 7.34 1810) COMPREHENSIVE METABOLIC [id number] 05:33:00 Test Item Value Reference Range Interpretation [...] S NOT APPLICABLE FOR DIALYSIS PATIEN TS. [id number] 05:32:00 Test Item Value Reference Range Interpretation Comments PHOSPHORUS (BEAKER) (test code = 3.6 mg/dL 2.3-4.7 604) [id number] 05:32:00 Test Item Value Reference Range Interpretation Comments MAGNESIUM (BEAKER) (test code = 2.2 mg/dL 1.6-2.6 627) CBC W/PLT COUNT & AUTO [id number] 05:01:00 Test Item Value Reference Range Interpretation [...] PERCENT (BEAKER) (test code = 2801) POCT-GLUCOSE [id number] 21:04:00 Test Item Value Reference Range Interpretation Comments POC-GLUCOSE METER 165 mg/dL 70-110 H TESTED AT [place] [address] ([facility]) (test code = [facility] 1538) [address] POCT-GLUCOSE [id number] 17:30:00 Test Item Value Reference Range Interpretation Comments POC-GLUCOSE METER 236 mg/dL 70-110 H TESTED AT [place] [address] ([facility]) (test code = [facility] 1538) [address] RAD, CHEST, 1 VIEW, NON [id number] 13:53:00Reason for exam:->assess for ill-defined opacityShould this [...] MDReport Verified Date/Time: 05/28/2017 13:53:03 Reading Location: [address] Radiology Reading Room POCT-GLUCOSE [id number] 11:53:00 Test Item Value Reference Range Interpretation Comments POC-GLUCOSE METER 215 mg/dL 70-[address] [facility] 6720 (BEAKER) (test code = [facility] 1538) [address] POCT-GLUCOSE [id number] 08:32:00 Test Item Value Reference Range Interpretation Comments POC-GLUCOSE METER 168 mg/dL 70-[address] [facility] 6720 (BEAKER) (test code = [facility] 1538) [address] CALCIUM, [id number] 05:44:00 Test Item Value Reference Range Interpretation Comments CALCIUM IONIZED (BEAKER) (test 1.09 mmol/L 1.12-1.27 L code = 698) PH, BLOOD (BEAKER) (test code = 7.38 1810) [id number] 05:44:00 Test Item Value Reference Range Interpretation Comments PHOSPHORUS (BEAKER) (test code = 3.5 mg/dL 2.3-4.7 604) [id number] 05:44:00 Test Item Value Reference Range Interpretation Comments MAGNESIUM (BEAKER) (test code = 1.9 mg/dL 1.6-2.6 627) BASIC METABOLIC [id number] 05:44:00 Test Item Value Reference Range Interpretation [...] PATIEN TS. CBC W/PLT COUNT & AUTO [id number] 05:05:00 Test Item Value Reference Range Interpretation [...] NEUTROPHILS ABSOLUTE COUNT 3.75 K/ L 1.56-6.13 ([facility]) (test code = 670) LYMPHOCYTES ABSOLUTE COUNT 1.80 K/ L 1.18-3.74 ([facility]) (test code = 414) MONOCYTES ABSOLUTE COUNT (AKER) 0.45 K/ L 0.24-0.36 H (test code = 415) EOSINOPHILS ABSOLUTE COUNT 0.25 K/ L 0.04-0.36 ([facility]) (test code = 416) BASOPHILS ABSOLUTE COUNT ([facility]) 0.05 K/ L 0.01-0.08 (test code = 417) IMMATURE GRANULOCYTES-RELATIVE 1 % 0-1 PERCENT ([facility]) (test code = 2801) POCT-GLUCOSE [id number] 21:03:00 Test Item Value Reference Range Interpretation Comments POC-GLUCOSE METER 173 mg/dL 70-110 H TESTED AT [place] [address] ([facility]) (test code = JULIANO Osborne [facility] 1538) [address] [id number] 18:15:00 Test Item Value Reference Range Interpretation Comments ACTIVATED CLOTTING TIME 147 sec TEST ED AT [place] [address] ([facility]) (test code = JULIANO Osborne [facility] 441) [address] [id number] 18:15:00 Test Item Value Reference Range Interpretation Comments ACTIVATED CLOTTING TIME 246 sec TEST ED AT [place] [address] ([facility]) (test code = JULIANO Osborne [facility] 441) [address] POCT-GLUCOSE [id number] 12:39:00 Test Item Value Reference Range Interpretation Comments POC-GLUCOSE METER 219 mg/dL 70-110 H TESTED AT [place] [address] ([facility]) (test code = JULIANO Osborne [facility] 1538) [address] RAD, CHEST, 1 VIEW, NON [id number] 10:11:00Reason for exam:->pl effusionShould this be performed at the bedside?->YesFINAL REPORT Chest one view compared to May 26 Discussion: There is cardiac prominence. Upper lungs are clear. Ill-defined basilar densities are similar probably atelectasis. No gross effusion or pneumothorax with bilateral chest tubes in place. Signed: Jeannette Nava Verified Date/Time: 05/27/2017 10:11:44 Reading Location: [facility] Radiology Reading Room POCT-GLUCOSE METER 2017-05-27 07:05:00 Test Item Value Reference Range Interpretation Comments POC-GLUCOSE METER 167 mg/dL 70-[address] [facility] 6720 (BEAKER) (test code = JULIANO [place] 1538) [address] CALCIUM, [id number] 06:20:00 Test Item Value Reference Range Interpretation Comments CALCIUM IONIZED (BEAKER) (test 0.98 mmol/L 1.12-1.27 L code = 698) PH, BLOOD (BEAKER) (test code = 7.50 1810) [id number] 04:56:00 Test Item Value Reference Range Interpretation Comments PHOSPHORUS (BEAKER) (test code = 2.6 mg/dL 2.3-4.7 604) [id number] 04:56:00 Test Item Value Reference Range Interpretation Comments MAGNESIUM (BEAKER) (test code = 2.0 mg/dL 1.6-2.6 627) BASIC METABOLIC [id number] 04:56:00 Test Item Value Reference Range Interpretation [...] PATIEN TS. CBC W/PLT COUNT & AUTO [id number] 04:36:00 Test Item Value Reference Range Interpretation [...] 417) IMMATURE GRANULOCYTES-RELATIVE 1 % 0-1 PERCENT ([facility]) (test code = 2801) POCT-GLUCOSE [id number] 21:29:00 Test Item Value Reference Range Interpretation Comments POC-GLUCOSE METER 147 mg/dL 70-110 H TESTED AT [place] [address] ([facility]) (test code = JULIANO Osborne [facility] 1538) [address] POCT-GLUCOSE [id number] 17:51:00 Test Item Value Reference Range Interpretation Comments POC-GLUCOSE METER 224 mg/dL 70-110 H TESTED AT [place] [address] ([facility]) (test code = JULIANO Osborne [facility] 1538) [address] POCT-GLUCOSE [id number] 13:53:00 Test Item Value Reference Range Interpretation Comments POC-GLUCOSE METER 182 mg/dL 70-110 H TESTED AT [place] [address] ([facility]) (test code = JULIANO Osborne [facility] 1538) [address] RAD, CHEST, 1 VIEW, NON [id number] 08:44:00Reason for exam:->pl effusionShould this be performed [...] MDReport Verified Date/Time: 05/26/2017 08:44:25 Reading Location: [address] Radiology Reading Room POCT- GLUCOSE [id number] 07:43:00 Test Item Value Reference Range Interpretation Comments POC-GLUCOSE METER 113 mg/dL 70-110 H TESTED AT [place] [address] ([facility]) (test code = JULIANO Osborne [facility] 1538) [address] CALCIUM, [id number] 06:31:00 Test Item Value Reference Range Interpretation Comments CALCIUM IONIZED (BEAKER) (test 1.07 mmol/L 1.12-1.27 L code = 698) PH, BLOOD (BEAKER) (test code = 7.38 1810) [id number] 04:51:00 Test Item Value Reference Range Interpretation Comments PHOSPHORUS (BEAKER) (test code = 3.2 mg/dL 2.3-4.7 604) [id number] 04:51:00 Test Item Value Reference Range Interpretation Comments MAGNESIUM (BEAKER) (test code = 2.1 mg/dL 1.6-2.6 627) BASIC METABOLIC [id number] 04:51:00 Test Item Value Reference Range Interpretation [...] PATIEN TS. CBC W/PLT COUNT & AUTO [id number] 04:27:00 Test Item Value Reference Range Interpretation [...] PERCENT (BEAKER) (test code = 2801) POCT-GLUCOSE [id number] 23:48:00 Test Item Value Reference Range Interpretation Comments POC-GLUCOSE METER 123 mg/dL 70-[address] [facility] 6720 (BEAKER) (test code = JULIANO REYEZ 1538) [address] POCT-GLUCOSE [id number] 16:46:00 Test Item Value Reference Range Interpretation Comments POC-GLUCOSE METER 178 mg/dL 70-[address] [facility] 6720 (BEAKER) (test code = JULIANO RUTH [place] 1538) [address] BASIC METABOLIC [id number] 05:53:00 Test Item Value Reference Range Interpretation [...] S NOT APPLICABLE FOR DIALYSIS PATIEN TS. [id number] 05:52:00 Test Item Value Reference Range Interpretation Comments PHOSPHORUS (BEAKER) (test code = 4.2 mg/dL 2.3-4.7 604) [id number] 05:52:00 Test Item Value Reference Range Interpretation Comments MAGNESIUM (BEAKER) (test code = 2.3 mg/dL 1.6-2.6 627) CALCIUM, [id number] 05:27:00 Test Item Value Reference Range Interpretation Comments CALCIUM IONIZED (BEAKER) (test 1.12 mmol/L 1.12-1.27 code = 698) PH, BLOOD (BEAKER) (test code = 7.38 1810) CBC W/PLT COUNT & AUTO [id number] 05:07:00 Test Item Value Reference Range Interpretation [...] = 2801) RAD, CHEST, 1 VIEW, NON [id number] 04:45:00Reason for exam:->pl effusionShould this be performed at the bedside?->YesFINAL REPORT RAD, CHEST, 1 VIEW, NON DEPT INDICATION: pl effusion COMPARISON:Prior day's exam FINDINGS: Portable frontal view of the chest. IMPRESSION: Support Lines: Stable.Lungs and pleura: Unchanged airspace and pleural opacities. No pneumothorax.Heart and mediastinum: Stable contours. Stable surgical changes.Additional findings: None. Signed: JR Boswell Robert MDReport Verified Date/Time: 05/25/2017 04:45:08 Reading Location: [place] [address] CT Body Reading Room POCT-GLUCOSE [id number] 01:52:00 Test Item Value Reference Range Interpretation Comments POC-GLUCOSE METER 126 mg/dL 70-110 H TESTED AT [place] [address] ([facility]) (test code = JULIANO RUTH [place] 1538) [address] POCT-GLUCOSE [id number] 13:07:00 Test Item Value Reference Range Interpretation Comments POC-GLUCOSE METER 118 mg/dL 70-110 H TESTED AT [place] [address] ([facility]) (test code = JULIANO Osborne [facility] 1538) [address] BRONCHIAL CULTURE + GRAM [id number] 11:35:00 Test Item Value Reference Range Interpretation Comments CULTURE ([facility]) (test code = 1095) Amikacin (test [...] <1+ gram (BEAKER) (test code = positive 983531) cocci in pairs GRAM STAIN RESULT 1+ gram (BEAKER) (test code = variable rods 806329) 1+ Normal respiratory todd presentRAD, CHEST, 1 VIEW, NON [id number] 06:50:00Reason for exam:->pl effusionShould this be performed at the bedside?->YesFINAL REPORT RAD, CHEST, 1 VIEW, NON DEPT INDICATION: pl effusion COMPARISON:Prior day's exam FINDINGS: Portable frontal view of the chest. IMPRESSION: Support Lines: Stable.Lungs and pleura: Unchanged airspace and pleural opacities. No pneumothorax.Heart and mediastinum: Stable contours. Stable surgical changes.Additional findings: None. Signed: JR Boswell Robert MDReport Verified Date/Time: 05/24/2017 06:50:08 Reading Location: [address] Body Reading Room BASIC METABOLIC [id number] 04:19:00 Test Item Value Reference Range Interpretation [...] NOT APPLICABLE FOR DIALYSIS PATIEN TS. CALCIUM, [id number] 04:16:00 Test Item Value Reference Range Interpretation Comments CALCIUM IONIZED (BEAKER) (test 1.06 mmol/L 1.12-1.27 L code = 698) PH, BLOOD (BEAKER) (test code = 7.40 1810) [id number] 04:11:00 Test Item Value Reference Range Interpretation Comments PHOSPHORUS (BEAKER) (test code = 6.0 mg/dL 2.3-4.7 H 604) [id number] 04:11:00 Test Item Value Reference Range Interpretation Comments MAGNESIUM (BEAKER) (test code = 2.4 mg/dL 1.6-2.6 627) CBC W/PLT COUNT & AUTO [id number] 03:50:00 Test Item Value Reference Range Interpretation [...] PERCENT (BEAKER) (test code = 2801) POCT-GLUCOSE [id number] 20:45:00 Test Item Value Reference Range Interpretation Comments POC-GLUCOSE METER 143 mg/dL 70-110 H TESTED AT [place] [address] ([facility] (test code = JULIANO [place] 1538) [address] POCT-GLUCOSE [id number] 20:45:00 Test Item Value Reference Range Interpretation Comments POC-GLUCOSE METER 145 mg/dL 70-[address] [facility] 6720 ([facility]) (test code = JULIANO [place]UTH [place] 1538) [address] [id number] 13:37:00 Test Item Value Reference Range Interpretation Comments PREALBUMIN (BEAKER) 10 mg/dL 14-45 L Specimen slightly (test code = 586) hemolyzed OXYGEN SATURATION, [id number] 12:31:00 Test Item Value Reference Range Interpretation Comments O2 SATURATION (MEASURED) (BEAKER) 94.5 % (test code = 1455) [id number] 11:02:00 Test Item Value Reference Range Interpretation Comments PREALBUMIN (BEAKER) (test code = 10 mg/dL 14-45 L 586) RAD, CHEST, 1 VIEW, NON [id number] 05:14:00while patient is intubated or has chest [...] Date/Time: 05/23/2017 05:14:04 Reading Location: [facility] C013Y CT Body Reading Room BASIC METABOLIC [id number] 03:48:00 Test Item Value Reference Range Interpretation [...] S NOT APPLICABLE FOR DIALYSIS PATIEN TS. [id number] 03:46:00 Test Item Value Reference Range Interpretation Comments MAGNESIUM (BEAKER) 2.4 mg/dL 1.6-2.6 Specimen slightly (test code = 627) hemolyzed [id number] 03:46:00 Test Item Value Reference Range Interpretation Comments PHOSPHORUS (BEAKER) 6.5 mg/dL 2.3-4.7 H Specimen slightly (test code = 604) hemolyzed CBC W/PLT COUNT & AUTO [id number] 03:26:00 Test Item Value Reference Range Interpretation [...] (BEAKER) (test code = 2801) BLOOD GAS, [id number] 03:18:00 Test Item Value Reference Range Interpretation [...] (test code = 1819) 36.0 % CALCIUM, [id number] 16:32:00 Test Item Value Reference Range Interpretation Comments CALCIUM IONIZED (BEAKER) (test 1.11 mmol/L 1.12-1.27 L code = 698) PH, BLOOD (BEAKER) (test code = 7.39 1810) BASIC METABOLIC [id number] 15:43:00 Test Item Value Reference Range Interpretation [...] NOT APPLICABLE FOR DIALYSIS PATIEN TS. POCT-GLUCOSE [id number] 12:53:00 Test Item Value Reference Range Interpretation Comments POC-GLUCOSE METER 118 mg/dL 70-110 H TESTED AT [place] [address] ([facility]) (test code = [facility] 1538) [address] BLOOD GAS, [id number] 10:42:00 Test Item Value Reference Range Interpretation [...] (test code = 1819) 40.0 % POCT-GLUCOSE [id number] 06:46:00 Test Item Value Reference Range Interpretation Comments POC-GLUCOSE METER 106 mg/dL 70-110 TESTED AT [place] [address] ([facility]) (test code = [facility] 1538) [address] RAD, CHEST, 1 VIEW, NON [id number] 05:05:00while patient is intubated or has chest [...] Date/Time: 05/22/2017 05:05:00 Reading Location: [facility] C013Y CT Body ReadingRoom BASIC METABOLIC [id number] 05:00:00 Test Item Value Reference Range Interpretation [...] S NOT APPLICABLE FOR DIALYSIS PATIEN TS. [id number] 04:41:00 Test Item Value Reference Range Interpretation Comments PHOSPHORUS (BEAKER) (test code = 6.4 mg/dL 2.3-4.7 H 604) [id number] 04:41:00 Test Item Value Reference Range Interpretation Comments MAGNESIUM (BEAKER) (test code = 2.6 mg/dL 1.6-2.6 627) CALCIUM, [id number] 04:26:00 Test Item Value Reference Range Interpretation Comments CALCIUM IONIZED (BEAKER) (test 1.09 mmol/L 1.12-1.27 L code = 698) PH, BLOOD (BEAKER) (test code = 7.40 1810) OXYGEN SATURATION, [id number] 04:25:00 Test Item Value Reference Range Interpretation Comments O2 SATURATION (MEASURED) (BEAKER) 77.0 % (test code = 1455) CBC W/PLT COUNT & AUTO [id number] 04:17:00 Test Item Value Reference Range Interpretation [...] 0-1 PERCENT (BEAKER) (test code = 2800) LACTIC ACID, ARTERIAL, WHOLE [id number] 00:07:00 Test Item Value Reference Range Interpretation Comments LACTATE BLOOD 1.0 mmol/L 0.5-2.2 Specimen sligh tly ARTERIAL (2) (BEAKER) hemoly zed (test code = 2874) Effective 08/02/2015: Units/Reference Range ChangeNew: 0.5-2.2 mmol/L Previous: 5-20 mg/dLPOCT-GLUCOSE [id number] 23:47:00 Test Item Value Reference Range Interpretation Comments POC-GLUCOSE METER 180 mg/dL 70-[address] [facility] [address] (BEAKER) (test code = JULIANO Osborne [place] 1538) [address] BLOOD GAS, [id number] 23:46:00 Test Item Value Reference Range Interpretation [...] code = 1819) 100.0 % SODIUM NA-STAT [id number] 23:46:00 Test Item Value Reference Range Interpretation Comments SODIUM (BEAKER) (test code = 381) 134 meq/L 135-148 L GLUCOSE-STAT [id number] 23:46:00 Test Item Value Reference Range Interpretation Comments GLUCOSE RANDOM (BEAKER) (test code 119 mg/dL 70-110 H = 652) HGB/HCT (H&H) - STAT [id number] 23:46:00 Test Item Value Reference Range Interpretation Comments HEMOGLOBIN (BEAKER) (test code = 8.8 g/dL 12.0-15.0 L 410) HEMATOCRIT (BEAKER) (test code = 26.0 % 36.0-45.0 L 411) OXYGEN SATURATION, [id number] 23:45:00 Test Item Value Reference Range Interpretation Comments O2 SATURATION (MEASURED) (BEAKER) 68.1 % (test code = 1455) POTASSIUM-STAT [id number] 23:45:00 Test Item Value Reference Range Interpretation Comments POTASSIUM (BEAKER) (test code = 5.5 meq/L 3.6-5.5 379) POCT-GLUCOSE [id number] 20:58:00 Test Item Value Reference Range Interpretation Comments POC-GLUCOSE METER 133 mg/dL 70-110 H TESTED AT [place] [address] ([facility]) (test code = JULIANO Osborne HOUSE [facility] 1538) [address] POCT-GLUCOSE [id number] 17:58:00 Test Item Value Reference Range Interpretation Comments POC-GLUCOSE METER 210 mg/dL 70-110 H TESTED AT [place] [address] ([facility]) (test code = JULIANO Osborne [facility] 1538) [address] POCT-GLUCOSE [id number] 17:58:00 Test Item Value Reference Range Interpretation Comments POC-GLUCOSE METER 211 mg/dL 70-110 H TESTED AT [place] [address] ([facility]) (test code = JULIANO Osborne [place] 1538) [address] POCT-GLUCOSE [id number] 17:58:00 Test Item Value Reference Range Interpretation Comments POC-GLUCOSE METER 232 mg/dL 70-110 H TESTED AT [place] [address] ([facility]) (test code = JULIANO Osborne [facility] 1538) [address] POCT-GLUCOSE [id number] 17:58:00 Test Item Value Reference Range Interpretation Comments POC-GLUCOSE METER 262 mg/dL 70-110 H TESTED AT [place] [address] (BEAKER) (test code = JULIANO Osborne [facility] 1538) [address] BLOOD GAS, [id number] 17:01:00 Test Item Value Reference Range Interpretation [...] (test code = 1819) 60.0 % POTASSIUM-STAT [id number] 17:00:00 Test Item Value Reference Range Interpretation Comments POTASSIUM (BEAKER) (test code = 4.8 meq/L 3.6-5.5 379) POCT-GLUCOSE [id number] 15:52:00 Test Item Value Reference Range Interpretation Comments POC-GLUCOSE METER 267 mg/dL 70-110 H TESTED AT [place] [address] (BEAKER) (test code = JULIANO Osborne [facility] 1538) [address] POCT-GLUCOSE [id number] 14:42:00 Test Item Value Reference Range Interpretation Comments POC-GLUCOSE METER 231 mg/dL 70-110 H TESTED AT [place] [address] (BEAKER) (test code = [facility] [place] [facility] 1538) [address] BODY FLUID CELL COUNT WITH [id number] 14:41:00 Test Item Value Reference Range Interpretation [...] Tube (test code = 2873) BASIC METABOLIC [id number] 14:11:00 Test Item Value Reference Range Interpretation [...] S NOT APPLICABLE FOR DIALYSIS PATIEN TS. [id number] 14:08:00 Test Item Value Reference Range Interpretation Comments PHOSPHORUS (BEAKER) (test code = 7.2 mg/dL 2.3-4.7 H 604) [id number] 14:08:00 Test Item Value Reference Range Interpretation Comments MAGNESIUM (BEAKER) (test code = 2.6 mg/dL 1.6-2.6 627) POCT-GLUCOSE [id number] 12:49:00 Test Item Value Reference Range Interpretation Comments POC-GLUCOSE METER 224 mg/dL 70-[address] [facility] 6720 (BEAKER) (test code = JULIANO REYEZ 1538) [address] POCT-GLUCOSE [id number] 12:49:00 Test Item Value Reference Range Interpretation Comments POC-GLUCOSE METER 248 mg/dL 70-[address] [facility] 6720 (BEAKER) (test code = JULIANO [place] 1538) [address] RAD, CHEST, 1 VIEW, NON [id number] 12:32:00Reason for exam:->re-intubationShould this be performed at [...] MDReport Verified Date/Time: 05/21/2017 12:32:08 Reading Location: [facility] Radiology Reading Room POTASSIUM-STAT [id number] 12:28:00 Test Item Value Reference Range Interpretation Comments POTASSIUM (BEAKER) (test code = 5.5 meq/L 3.6-5.5 379) BLOOD GAS, [id number] 12:28:00 Test Item Value Reference Range Interpretation [...] code = 1819) 100.0 % BLOOD GAS, [id number] 10:53:00 Test Item Value Reference Range Interpretation [...] 36.0 % RAD, CHEST, 1 VIEW, NON [id number] 08:46:00while patient is intubated or has chest [...] MDReport Verified Date/Time: 05/21/2017 08:46:27 Reading Location: [facility] Radiology Reading Room BLOOD GAS, [id number] 05:41:00 Test Item Value Reference Range Interpretation [...] (BEAKER) (test code = 1819) 40 CALCIUM, [id number] 04:35:00 Test Item Value Reference Range Interpretation Comments CALCIUM IONIZED (BEAKER) (test 1.13 mmol/L 1.12-1.27 code = 698) PH, BLOOD (BEAKER) (test code = 7.32 1810) BLOOD GAS, [id number] 04:28:00 Test Item Value Reference Range Interpretation [...] (BEAKER) (test code = 1819) 40.0 % [id number] 04:20:00 Test Item Value Reference Range Interpretation Comments PHOSPHORUS (BEAKER) (test code = 6.2 mg/dL 2.3-4.7 H 604) [id number] 04:20:00 Test Item Value Reference Range Interpretation Comments MAGNESIUM (BEAKER) (test code = 2.4 mg/dL 1.6-2.6 627) HEPATIC FUNCTION [id number] 04:20:00 Test Item Value Reference Range Interpretation [...] = 11 U/L 6-55 347) BASIC METABOLIC [id number] 04:20:00 Test Item Value Reference Range Interpretation [...] APPLICABLE FOR DIALYSIS PATIEN TS. OXYGEN SATURATION, [id number] 04:18:00 Test Item Value Reference Range Interpretation Comments O2 SATURATION (MEASURED) (BEAKER) 68.0 % (test code = 1455) LACTIC ACID, ARTERIAL, WHOLE [id number] 04:12:00 Test Item Value Reference Range Interpretation Comments LACTATE BLOOD ARTERIAL (2) 1.0 mmol/L 0.5-2.2 (BEAKER) (test code = 2874) Effective 08/02/2015: Units/Reference Range ChangeNew: 0.5-2.2 mmol/L Previous: 5-20 mg/dLCBC W/PLT COUNT & AUTO [id number] 04:00:00 Test Item Value Reference Range Interpretation [...] (BEAKER) (test code = 2801) BLOOD GAS, [id number] 00:06:00 Test Item Value Reference Range Interpretation [...] (BEAKER) (test code = 1819) 40.0 % [id number] 18:55:00 Test Item Value Reference Range Interpretation Comments PHOSPHORUS (BEAKER) (test code = 4.8 mg/dL 2.3-4.7 H 604) [id number] 18:55:00 Test Item Value Reference Range Interpretation Comments MAGNESIUM (BEAKER) (test code = 2.3 mg/dL 1.6-2.6 627) BASIC METABOLIC [id number] 18:55:00 Test Item Value Reference Range Interpretation [...] DIALYSIS PATIEN TS. LACTIC ACID, ARTERIAL, WHOLE [id number] 18:53:00 Test Item Value Reference Range Interpretation Comments LACTATE BLOOD 0.9 mmol/L 0.5-2.2 Specimen sligh tly ARTERIAL (2) (BEAKER) hemoly zed (test code = 2874) Effective 08/02/2015: Units/Reference Range ChangeNew: 0.5-2.2 mmol/L Previous: 5-20 mg/dLRAD, CHEST, 1 VIEW, NON [id number] 18:44:00Reason for exam:- >postop cardiacShould this be [...] MDReport Verified Date/Time: 05/20/2017 18:44:30 Reading Location: [facility] B1 [id number] Consult Reading Room Electronically signed by: MIGUEL BHAKTA M.D. on05/20/2017 06:44 PMCBC W/PLT COUNT & AUTO [id number] 18:38:00 Test Item Value Reference Range Interpretation [...] (BEAKER) (test code = 2801) OXYGEN SATURATION, [id number] 18:36:00 Test Item Value Reference Range Interpretation Comments O2 SATURATION (MEASURED) (BEAKER) 72.5 % (test code = 1455) From distal port of IJ central venous catheterSODIUM NA-STAT [id number] 18:30:00 Test Item Value Reference Range Interpretation Comments SODIUM (BEAKER) (test code = 381) 132 meq/L 135-148 L HGB/HCT (H&H) - STAT [id number] 18:30:00 Test Item Value Reference Range Interpretation Comments HEMOGLOBIN (BEAKER) (test code = 9.4 g/dL 12.0-15.0 L 410) HEMATOCRIT (BEAKER) (test code = 28.0 % 36.0-45.0 L 411) GLUCOSE-STAT [id number] 18:30:00 Test Item Value Reference Range Interpretation Comments GLUCOSE RANDOM (BEAKER) (test code 159 mg/dL 70-110 H = 652) BLOOD GAS, [id number] 18:30:00 Test Item Value Reference Range Interpretation [...] (test code = 1819) 60.0 % CALCIUM, [id number] 18:30:00 Test Item Value Reference Range Interpretation Comments CALCIUM IONIZED (BEAKER) (test 0.94 mmol/L 1.12-1.27 L code = 698) PH, BLOOD (BEAKER) (test code = 7.34 1810) POTASSIUM-STAT [id number] 18:28:00 Test Item Value Reference Range Interpretation [...] (test 0.0 % 0.0-5.0 code = 1414) [id number] 17:53:00 Test Item Value Reference Range Interpretation Comments ACTIVATED CLOTTING TIME 103 sec TEST ED AT [place] [address] ([facility]) (test code = [place]IANO [place] 441) [address] [id number] 17:53:00 Test Item Value Reference Range Interpretation Comments ACTIVATED CLOTTING TIME 466 sec TEST ED AT [place] [address] ([facility]) (test code = [place]IANO [place] 441) [address] [id number] 17:53:00 Test Item Value Reference Range Interpretation Comments ACTIVATED CLOTTING TIME 543 sec TEST ED AT [place] [address] ([facility]) (test code = [place]IANO [place] 441) [address] [id number] 17:53:00 Test Item Value Reference Range Interpretation Comments ACTIVATED CLOTTING TIME 549 sec TEST ED AT [place] [address] ([facility]) (test code = [place]IANO [place] 441) [address] [id number] 17:53:00 Test Item Value Reference Range Interpretation Comments ACTIVATED CLOTTING TIME 632 sec TEST ED AT [place] [address] ([facility]) (test code = [place]IANO [place] 441) [address] [id number] 17:53:00 Test Item Value Reference Range Interpretation Comments ACTIVATED CLOTTING TIME 494 sec TEST ED AT [place] [address] ([facility]) (test code = JULIANO Osborne [place] [address]) [address] [id number] 17:53:00 Test Item Value Reference Range Interpretation Comments ACTIVATED CLOTTING TIME 587 sec TEST ED AT [place] [address] ([facility]) (test code = JULIANO Osborne [place] [address]) [address] [id number] 17:53:00 Test Item Value Reference Range Interpretation Comments ACTIVATED CLOTTING TIME 626 sec TEST ED AT [place] [address] ([facility]) (test code = JULIANO Osborne [place] [address]) [address] [id number] 17:52:00 Test Item Value Reference Range Interpretation Comments ACTIVATED CLOTTING TIME 808 sec TEST ED AT [place] [address] ([facility]) (test code = JULIANO Osborne [place] [address]) [address] [id number] 16:54:00 Test Item Value Reference Range Interpretation Comments PARTIAL THROMBOPLASTIN TIME 40.2 seconds 22.5-36.0 H ([facility]) (test code = 760) [id number] 16:53:00 Test Item Value Reference Range Interpretation Comments FIBRINOGEN LEVEL ([facility]) (test 306 mg/dl 225-434 code = 658) PROTHROMBIN [id number] 16:50:00 Test Item Value Reference Range Interpretation Comments PROTIME (BEAKER) (test code = 19.6 seconds 11.7-14.7 H 759) INR ([facility]) (test code = 370) 1.7 <=5.9 RECOMMENDED COUMADIN/WARFARIN INR THERAPY RANGESSTANDARD DOSE: 2.0 - 3.0 Includes: PROPHYLAXIS forvenous thrombosis, systemic embolization; TREATMENT for venous thrombosis and/or pulmonary embolus.HIGH RISK: Target INR is 2.5-3.5 for patients with mechanical heart valves.PLATELET [id number] 16:45:00 Test Item Value Reference Range Interpretation Comments PLATELET COUNT (BEAKER) (test 136 K/CU MM 150-450 L code = 756) POTASSIUM-STAT [id number] 16:15:00 Test Item Value Reference Range Interpretation Comments POTASSIUM (BEAKER) (test code = 4.9 meq/L 3.6-5.5 379) BLOOD GAS, [id number] 16:15:00 Test Item Value Reference Range Interpretation [...] code = 1819) 100.0 % SODIUM NA-STAT [id number] 16:15:00 Test Item Value Reference Range Interpretation Comments SODIUM (BEAKER) (test code = 381) 131 meq/L 135-148 L GLUCOSE-STAT [id number] 16:15:00 Test Item Value Reference Range Interpretation Comments GLUCOSE RANDOM (BEAKER) (test code 198 mg/dL 70-110 H = 652) HGB/HCT (H&H) - STAT [id number] 16:15:00 Test Item Value Reference Range Interpretation Comments HEMOGLOBIN (BEAKER) (test code = 7.5 g/dL 12.0-15.0 L 410) HEMATOCRIT (BEAKER) (test code = 22.0 % 36.0-45.0 L 411) CALCIUM, [id number] 16:14:00 Test Item Value Reference Range Interpretation Comments CALCIUM IONIZED (BEAKER) (test 0.91 mmol/L 1.12-1.27 L code = 698) PH, BLOOD (BEAKER) (test code = 7.39 1810) BLOOD GAS, [id number] 15:39:00 Test Item Value Reference Range Interpretation [...] code = 1819) 70.0 % SODIUM NA-STAT [id number] 15:39:00 Test Item Value Reference Range Interpretation Comments SODIUM (BEAKER) (test code = 381) 131 meq/L 135-148 L GLUCOSE-STAT [id number] 15:39:00 Test Item Value Reference Range Interpretation Comments GLUCOSE RANDOM (BEAKER) (test code 186 mg/dL 70-110 H = 652) HGB/HCT (H&H) - STAT [id number] 15:39:00 Test Item Value Reference Range Interpretation Comments HEMOGLOBIN (BEAKER) (test code = 7.5 g/dL 12.0-15.0 L 410) HEMATOCRIT (BEAKER) (test code = 22.0 % 36.0-45.0 L 411) POTASSIUM-STAT [id number] 15:38:00 Test Item Value Reference Range Interpretation Comments POTASSIUM (BEAKER) (test code = 5.3 meq/L 3.6-5.5 379) BLOOD GAS, [id number] 15:24:00 Test Item Value Reference Range Interpretation [...] code = 1819) 70.0 % SODIUM NA-STAT [id number] 15:24:00 Test Item Value Reference Range Interpretation Comments SODIUM (BEAKER) (test code = 381) 130 meq/L 135-148 L GLUCOSE-STAT [id number] 15:24:00 Test Item Value Reference Range Interpretation Comments GLUCOSE RANDOM (BEAKER) (test code 189 mg/dL 70-110 H = 652) HGB/HCT (H&H) - STAT [id number] 15:24:00 Test Item Value Reference Range Interpretation Comments HEMOGLOBIN (BEAKER) (test code = 6.7 g/dL 12.0-15.0 L 410) HEMATOCRIT (BEAKER) (test code = 20.0 % 36.0-45.0 L 411) POTASSIUM-STAT [id number] 15:23:00 Test Item Value Reference Range Interpretation Comments POTASSIUM (BEAKER) (test code = 5.4 meq/L 3.6-5.5 379) BLOOD GAS, [id number] 15:07:00 Test Item Value Reference Range Interpretation [...] code = 1819) 70.0 % SODIUM NA-STAT [id number] 15:07:00 Test Item Value Reference Range Interpretation Comments SODIUM (BEAKER) (test code = 381) 129 meq/L 135-148 L GLUCOSE-STAT [id number] 15:07:00 Test Item Value Reference Range Interpretation Comments GLUCOSE RANDOM (BEAKER) (test code 172 mg/dL 70-110 H = 652) HGB/HCT (H&H) - STAT [id number] 15:07:00 Test Item Value Reference Range Interpretation Comments HEMOGLOBIN (BEAKER) (test code = 7.1 g/dL 12.0-15.0 L 410) HEMATOCRIT (BEAKER) (test code = 21.0 % 36.0-45.0 L 411) POTASSIUM-STAT [id number] 15:04:00 Test Item Value Reference Range Interpretation Comments POTASSIUM (BEAKER) (test code = 5.0 meq/L 3.6-5.5 379) BLOOD GAS, [id number] 14:21:00 Test Item Value Reference Range Interpretation [...] code = 1819) 70.0 % SODIUM NA-STAT [id number] 14:21:00 Test Item Value Reference Range Interpretation Comments SODIUM (BEAKER) (test code = 381) 133 meq/L 135-148 L GLUCOSE-STAT [id number] 14:21:00 Test Item Value Reference Range Interpretation Comments GLUCOSE RANDOM (BEAKER) (test code 160 mg/dL 70-110 H = 652) HGB/HCT (H&H) - STAT [id number] 14:21:00 Test Item Value Reference Range Interpretation Comments HEMOGLOBIN (BEAKER) (test code = 7.5 g/dL 12.0-15.0 L 410) HEMATOCRIT (BEAKER) (test code = 22.0 % 36.0-45.0 L 411) POTASSIUM-STAT [id number] 14:20:00 Test Item Value Reference Range Interpretation Comments POTASSIUM (BEAKER) (test code = 4.7 meq/L 3.6-5.5 379) BLOOD GAS, [id number] 13:58:00 Test Item Value Reference Range Interpretation [...] code = 1819) 80.0 % SODIUM NA-STAT [id number] 13:58:00 Test Item Value Reference Range Interpretation Comments SODIUM (BEAKER) (test code = 381) 132 meq/L 135-148 L GLUCOSE-STAT [id number] 13:58:00 Test Item Value Reference Range Interpretation Comments GLUCOSE RANDOM (BEAKER) (test code 166 mg/dL 70-110 H = 652) HGB/HCT (H&H) - STAT [id number] 13:58:00 Test Item Value Reference Range Interpretation Comments HEMOGLOBIN (BEAKER) (test code = 7.5 g/dL 12.0-15.0 L 410) HEMATOCRIT (BEAKER) (test code = 22.0 % 36.0-45.0 L 411) POTASSIUM-STAT [id number] 13:57:00 Test Item Value Reference Range Interpretation Comments POTASSIUM (BEAKER) (test code = 4.7 meq/L 3.6-5.5 379) BLOOD GAS, [id number] 13:35:00 Test Item Value Reference Range Interpretation [...] (test code = 1819) 80.0 % GLUCOSE-STAT [id number] 13:35:00 Test Item Value Reference Range Interpretation Comments GLUCOSE RANDOM (BEAKER) (test code 130 mg/dL 70-110 H = 652) HGB/HCT (H&H) - STAT [id number] 13:35:00 Test Item Value Reference Range Interpretation Comments HEMOGLOBIN (BEAKER) (test code = 6.7 g/dL 12.0-15.0 L 410) HEMATOCRIT (BEAKER) (test code = 20.0 % 36.0-45.0 L 411) SODIUM NA-STAT [id number] 13:35:00 Test Item Value Reference Range Interpretation Comments SODIUM (BEAKER) (test code = 381) 133 meq/L 135-148 L POTASSIUM-STAT [id number] 13:34:00 Test Item Value Reference Range Interpretation Comments POTASSIUM (BEAKER) (test code = 4.2 meq/L 3.6-5.5 379) BLOOD GAS, [id number] 13:16:00 Test Item Value Reference Range Interpretation [...] code = 1819) 80.0 % SODIUM NA-STAT [id number] 13:16:00 Test Item Value Reference Range Interpretation Comments SODIUM (BEAKER) (test code = 381) 133 meq/L 135-148 L HGB/HCT (H&H) - STAT [id number] 13:16:00 Test Item Value Reference Range Interpretation Comments HEMOGLOBIN (BEAKER) (test code = 6.3 g/dL 12.0-15.0 L 410) HEMATOCRIT (BEAKER) (test code = 19.0 % 36.0-45.0 L 411) CALCIUM, [id number] 13:15:00 Test Item Value Reference Range Interpretation Comments CALCIUM IONIZED (BEAKER) (test 0.98 mmol/L 1.12-1.27 L code = 698) PH, BLOOD (BEAKER) (test code = 7.34 1810) BLOOD GAS, [id number] 13:15:00 Test Item Value Reference Range Interpretation [...] (test code = 1819) 80.0 % GLUCOSE-STAT [id number] 13:14:00 Test Item Value Reference Range Interpretation Comments GLUCOSE RANDOM (BEAKER) (test code = 92 mg/dL 70-110 652) POTASSIUM-STAT [id number] 13:14:00 Test Item Value Reference Range Interpretation Comments POTASSIUM (BEAKER) (test code = 3.9 meq/L 3.6-5.5 379) BLOOD GAS, [id number] 10:54:00 Test Item Value Reference Range Interpretation [...] 1819) 100.0 % HGB/HCT (H&H) - STAT [id number] 10:54:00 Test Item Value Reference Range Interpretation Comments HEMOGLOBIN (BEAKER) (test code = 9.3 g/dL 12.0-15.0 L 410) HEMATOCRIT (BEAKER) (test code = 27.0 % 36.0-45.0 L 411) SODIUM NA-STAT [id number] 10:54:00 Test Item Value Reference Range Interpretation Comments SODIUM (BEAKER) (test code = 381) 132 meq/L 135-148 L GLUCOSE-STAT [id number] 10:52:00 Test Item Value Reference Range Interpretation Comments GLUCOSE RANDOM (BEAKER) (test code = 94 mg/dL 70-110 652) POTASSIUM-STAT [id number] 10:52:00 Test Item Value Reference Range Interpretation Comments POTASSIUM (BEAKER) (test code = 4.0 meq/L 3.6-5.5 379) HEMOGLOBIN [id number] 09:50:00 Test Item Value Reference Range Interpretation Comments HEMOGLOBIN A1C (BEAKER) (test code = 10.6 % 4.3-6.1 H 368) PLATELET AGGREGATION: FUNCTION [id number] 08:27:00 Test Item Value Reference Range Interpretation Comments WEAK ADP 63 % 60-91 RESULT(BEAKER) (test code = 2135) PLATELET FUNCTION 60-100% indicates SCREEN INTERP (BEAKER) normal platelet (test code = 2173) function [id number] Toshia Post MD (BEAKER) (test code = (electronic signature) 5101) PLATELET COUNT AGG 198 K/CU MM 150-450 (BEAKER) (test code = 2112) for patients on clopidogrel in past two weeksPOCT-GLUCOSE [id number] 08:11:00 Test Item Value Reference Range Interpretation Comments POC-GLUCOSE METER 116 mg/dL 70-[address] [facility] 6720 (BEAKER) (test code = JULIANO REYEZ 1538) [address] [id number] 07:10:00 Test Item Value Reference Range Interpretation Comments PHOSPHORUS (BEAKER) (test code = 4.5 mg/dL 2.3-4.7 604) [id number] 07:10:00 Test Item Value Reference Range Interpretation Comments MAGNESIUM (BEAKER) (test code = 2.1 mg/dL 1.6-2.6 627) BASIC METABOLIC [id number] 07:10:00 Test Item Value Reference Range Interpretation [...] = 700) CBC W/PLT COUNT & AUTO [id number] 06:46:00 Test Item Value Reference Range Interpretation [...] PERCENT (BEAKER) (test code = 2801) CALCIUM, [id number] 06:40:00 Test Item Value Reference Range Interpretation Comments CALCIUM IONIZED (BEAKER) (test 1.06 mmol/L 1.12-1.27 L code = 698) PH, BLOOD (BEAKER) (test code = 7.39 1810) POCT-GLUCOSE [id number] 23:22:00 Test Item Value Reference Range Interpretation Comments POC-GLUCOSE METER 165 mg/dL 70-[address] [facility] 6720 (BEAKER) (test code = JULIANO Osborne [facility] 1538) [address] URINE PROTEIN ELECTROPHORESIS, [id number] 18:02:00 Test Item Value Reference Range Interpretation Comments PROTEIN, URINE 305 mg/dL 0-14 H (BEAKER) (test code = 1569) ALBUMIN URINE ELP 70.9 % (BEAKER) (test code = 1018) GAMMA GLOBULIN URINE 29.1 % (BEAKER) (test code = 1015) UPEP, ID-438 (AKER) No monoclonal bands (test code = 2604) detected. [id number] Rocio Galindo MD ([facility]) (test code = (electronic signature) 2606) PROTEIN ELECTROPHORESIS, [id number] 17:57:00 Test Item Value Reference Range Interpretation [...] all globulin fractions. No monoclonal bands detected. [id number] Rocio Galindo MD ([facility]) (test code = (electronic signature) 3221) PROTEIN TOTAL SERUM, 5.5 gm/dL 6.0-8.3 L SPEP (BEAKER) (test code = 9220) POCT-GLUCOSE [id number] 17:15:00 Test Item Value Reference Range Interpretation Comments POC-GLUCOSE METER 209 mg/dL 70-[address] [facility] 67 [facility] (test code = JULIANO Osborne [facility] 1538) [address] BLOOD GAS, [id number] 15:54:00 Test Item Value Reference Range Interpretation [...] 36.0 % RAD, CHEST, 1 VIEW, NON [id number] 14:07:00Reason for exam:->SOB, hypoxemiaShould this be performed [...] Cespedes Verified Date/Time: 05/19/2017 14:07:07 Reading Location:[facility] C0[facility] Consult Reading Room POCT-GLUCOSE [id number] 11:26:00 Test Item Value Reference Range Interpretation Comments POC-GLUCOSE METER 262 mg/dL 70-[address] [facility] 6720 [facility] (test code = JULIANO Osborne [facility] 1538) [address] POCT-GLUCOSE [id number] 07:37:00 Test Item Value Reference Range Interpretation Comments POC-GLUCOSE METER 170 mg/dL 70-[address] [facility] 6720 (BEAKER) (test code = [place] 1538) [address] CALCIUM, [id number] 06:06:00 Test Item Value Reference Range Interpretation Comments CALCIUM IONIZED (BEAKER) (test 1.05 mmol/L 1.12-1.27 L code = 698) PH, BLOOD (BEAKER) (test code = 7.41 1810) [id number] 05:38:00 Test Item Value Reference Range Interpretation Comments PHOSPHORUS (BEAKER) (test code = 3.9 mg/dL 2.3-4.7 604) [id number] 05:38:00 Test Item Value Reference Range Interpretation Comments MAGNESIUM (BEAKER) (test code = 2.2 mg/dL 1.6-2.6 627) BASIC METABOLIC [id number] 05:38:00 Test Item Value Reference Range Interpretation [...] PATIEN TS. CBC W/PLT COUNT & AUTO [id number] 05:09:00 Test Item Value Reference Range Interpretation [...] PERCENT (BEAKER) (test code = 2801) POCT-GLUCOSE [id number] 22:08:00 Test Item Value Reference Range Interpretation Comments POC-GLUCOSE METER 263 mg/dL 70-[address] [facility] 67[address] (BEAKER) (test code = JULIANO Osborne [facility] 1538) [id number] POCT-GLUCOSE [id number] 17:20:00 Test Item Value Reference Range Interpretation Comments POC-GLUCOSE METER 233 mg/dL 70-[address] [facility] 6720 (BEAKER) (test code = JULIANO Osborne [facility] 1538) [address] POCT-GLUCOSE [id number] 08:28:00 Test Item Value Reference Range Interpretation Comments POC-GLUCOSE METER 154 mg/dL 70-[address] [facility] 6720 (BEAKER) (test code = JULIANO Osborne [facility] 1538) [address] BASIC METABOLIC [id number] 06:41:00 Test Item Value Reference Range Interpretation [...] S NOT APPLICABLE FOR DIALYSIS PATIEN TS. [id number] 06:35:00 Test Item Value Reference Range Interpretation Comments PHOSPHORUS (BEAKER) (test code = 4.1 mg/dL 2.3-4.7 604) [id number] 06:35:00 Test Item Value Reference Range Interpretation Comments MAGNESIUM (BEAKER) (test code = 2.1 mg/dL 1.6-2.6 627) CALCIUM, [id number] 06:22:00 Test Item Value Reference Range Interpretation Comments CALCIUM IONIZED (BEAKER) (test 1.10 mmol/L 1.12-1.27 L code = 698) PH, BLOOD (BEAKER) (test code = 7.38 1810) CBC W/PLT COUNT & AUTO [id number] 06:04:00 Test Item Value Reference Range Interpretation [...] 417) IMMATURE GRANULOCYTES-RELATIVE 0 % 0-1 PERCENT ([facility]) (test code = 2801) POCT-GLUCOSE [id number] 03:44:00 Test Item Value Reference Range Interpretation Comments POC-GLUCOSE METER 220 mg/dL 70-110 H TESTED AT [place] [address] ([facility]) ([facility] = [facility] [place] [facility] [address] POCT-GLUCOSE [id number] 18:27:00 Test Item Value Reference Range Interpretation Comments POC-GLUCOSE METER 256 mg/dL 70-110 H TESTED AT [place] [address] ([facility]) (test code = [facility] [place] [address]) [address] POCT-GLUCOSE [id number] 15:45:00 Test Item Value Reference Range Interpretation Comments POC-GLUCOSE METER 278 mg/dL 70-110 H TESTED AT [place] [address] ([facility]) (test code = [facility] Dylon [place] 1538) [address] POCT-GLUCOSE [id number] 13:22:00 Test Item Value Reference Range Interpretation Comments POC-GLUCOSE METER 278 mg/dL 70-110 H TESTED AT [place] [address] ([facility]) (test code = [facility] Dylon [place] 1538) [address] PLATELET AGGREGATION: FUNCTION [id number] 13:18:00 Test Item Value Reference Range Interpretation Comments WEAK ADP 66 % 60-91 RESULT([facility]) (test code = 2135) PLATELET FUNCTION 60-100% indicates SCREEN INTERP ([facility]) normal platelet (test code = 2173) function [id number] Rigoberto Duenas MD ([facility]) (test code = (electronic signature) 3975) PLATELET COUNT AGG 204 K/CU MM 150-450 ([facility]) (test code = 2656) POCT-GLUCOSE [id number] 08:27:00 Test Item Value Reference Range Interpretation Comments POC-GLUCOSE METER 189 mg/dL 70-110 H TESTED AT [facility] 6720 (BEAKER) (test code = [place]O [place] 1538) [address] CALCIUM, [id number] 06:12:00 Test Item Value Reference Range Interpretation Comments CALCIUM IONIZED (BEAKER) (test 1.07 mmol/L 1.12-1.27 L code = 698) PH, BLOOD (BEAKER) (test code = 7.36 1810) [id number] 05:43:00 Test Item Value Reference Range Interpretation Comments PHOSPHORUS (BEAKER) (test code = 3.6 mg/dL 2.3-4.7 604) [id number] 05:43:00 Test Item Value Reference Range Interpretation Comments MAGNESIUM (BEAKER) (test code = 2.1 mg/dL 1.6-2.6 627) BASIC METABOLIC [id number] 05:43:00 Test Item Value Reference Range Interpretation [...] PATIEN TS. CBC W/PLT COUNT & AUTO [id number] 05:05:00 Test Item Value Reference Range Interpretation [...] PERCENT (BEAKER) (test code = 2801) POCT-GLUCOSE [id number] 21:32:00 Test Item Value Reference Range Interpretation Comments POC-GLUCOSE METER 176 mg/dL 70-110 H TESTED AT [facility] 6720 (BEAKER) (test code = [facility] Dylon [facility] 1538) [address] POCT-GLUCOSE [id number] 20:27:00 Test Item Value Reference Range Interpretation Comments POC-GLUCOSE METER 161 mg/dL 70-110 H TESTED AT [place] [address] ([facility]) (test code = [facility] 1538) [address] POCT-GLUCOSE [id number] 18:23:00 Test Item Value Reference Range Interpretation Comments POC-GLUCOSE METER 185 mg/dL 70-110 H TESTED AT [place] [address] ([facility]) (test code = [facility] 1538) [address] POCT-GLUCOSE [id number] 13:26:00 Test Item Value Reference Range Interpretation Comments POC-GLUCOSE METER 282 mg/dL 70-110 H TESTED AT [place] [address] ([facility]) (test code = [facility] 1538) [address] URINE [id number] 10:12:00 Test Item Value Reference Range Interpretation Comments CULTURE ([facility]) (test >100,000 col/mL skin code = 1095) todd POCT-GLUCOSE [id number] 09:01:00 Test Item Value Reference Range Interpretation Comments POC-GLUCOSE METER 268 mg/dL 70-110 H TESTED AT [place] [address] ([facility]) (test code = [facility] 1538) [address] CALCIUM, [id number] 05:39:00 Test Item Value Reference Range Interpretation Comments CALCIUM IONIZED (BEAKER) (test 0.84 mmol/L 1.12-1.27 L code = 698) PH, BLOOD (BEAKER) (test code = 7.35 1810) BASIC METABOLIC [id number] 05:07:00 Test Item Value Reference Range Interpretation [...] S NOT APPLICABLE FOR DIALYSIS PATIEN TS. [id number] 05:06:00 Test Item Value Reference Range Interpretation Comments PHOSPHORUS (BEAKER) (test code = 3.2 mg/dL 2.3-4.7 604) [id number] 05:06:00 Test Item Value Reference Range Interpretation Comments MAGNESIUM (BEAKER) (test code = 2.3 mg/dL 1.6-2.6 627) CBC W/PLT COUNT & AUTO [id number] 04:42:00 Test Item Value Reference Range Interpretation [...] = 2801) RHEUMATOID FACTOR AB, REFLEX TO [id number] 01:52:00 Test Item Value Reference Range Interpretation Comments RHEUMATOID FACTOR ([facility]) (test Negative code = 573) POCT-GLUCOSE [id number] 21:57:00 Test Item Value Reference Range Interpretation Comments POC-GLUCOSE METER 105 mg/dL 70-[address] [facility] 6720 ([facility]) (test code = JULIANO Osborne [place] [address]) [address] POCT-GLUCOSE [id number] 18:11:00 Test Item Value Reference Range Interpretation Comments POC-GLUCOSE METER 312 mg/dL 70-110 H Notified Dylon Hassan MD/TESTED ([facility]) (test code = AT [facility] [address] [place] [address]) [facility] [address] PET, CARDIAC PERFUSION MULTIPLE STUDIES, REST AND [id number] 16:28:00 Reason for exam:->pvcs, known cadFINAL REPORT PROCEDURE: Rest/Stress MYOCARDIAL PERFUSION PET with regadenoson\\XA9\\ CPT CODE: 18720 INDICATION: Defined extent and severity of known [...] is 23%. LVEF at stress is 36%. Finishing Range Feeder CT images revealed a right pleural effusion [...] Whaley Verified Date/Time: 05/15/2017 16:28:12 Reading Location: [address] [facility] ReadingRoom RAD, CHEST, 1 VIEW, NON [id number] 15:56:00Reason for exam:->SOBShould this be performed at the bedside?->YesFINAL REPORT Comparison: 05/14/2017 TECHNIQUE: Single view of the chest FINDINGS: There is a small right pleural effusion with nonspecific airspace disease. This is unchanged. Left lung is grossly clear. Cardiac silhouette is enlarged. IMPRESSION: 1. No acute cardiopulmonary disease. Signed: Sixto Monk MDReport Verified Date/Time: 05/15/2017 15:56:39 Reading Location: [facility] Rad iology Reading Room POCT-GLUCOSE [id number] 12:54:00 Test Item Value Reference Range Interpretation Comments POC-GLUCOSE METER 308 mg/dL 70-110 H Notified Dylon Hassan MD/NATHAN (ROBERT) (test code = AT [facility] 6720 [facility] 1538) [facility] [address] U/S, RENAL WITH [id number] 11:04:00Reason for exam:->tracy, htnShould this be performed [...] Hobbs Verified Date/Time: 05/15/2017 11:04:01 Reading Location: [address] Ultrasound Reading Room ANA TITER AND [id number] 10:57:00 Test Item Value Reference Range Interpretation Comments ROGER TITER (BEAKER) (test code = :160 1541) ROGER PATTERN (BEAKER) (test code = Speckled 1781) ANTI-NUCLEAR ANTIBODY (ROGER)2017-05-15 10:56:00 Test Item Value Reference Range Interpretation Comments ANTI-NUCLEAR ANTIBODY ([facility]OGER) (BEAKER) Positive Negative A (test code = 418) CALCIUM, [id number] 06:00:00 Test Item Value Reference Range Interpretation Comments CALCIUM IONIZED (BEAKER) (test 1.07 mmol/L 1.12-1.27 L code = 698) PH, BLOOD (BEAKER) (test code = 7.28 1810) HEPATITIS PANEL, [id number] 05:01:00 Test Item Value Reference Range Interpretation Comments HEPATITIS A IGM ANTIBODY (BEAKER) Nonreactive Nonreactive (test code = 498) HEPATITIS B CORE IGM ANTIBODY Nonreactive Nonreactive (BEAKER) (test code = 645) HEPATITIS C ANTIBODY (BEAKER) Nonreactive Nonreactive (test code = 367) HEPATITIS B SURFACE ANTIGEN (2) Nonreactive Nonreactive (BEAKER) (test code = 2585) BASIC METABOLIC [id number] 04:48:00 Test Item Value Reference Range Interpretation [...] NOT APPLICABLE FOR DIALYSIS PATIEN TS. URIC [id number] 04:41:00 Test Item Value Reference Range Interpretation Comments URIC ACID (BEAKER) (test code = 10.3 mg/dL 2.6-7.2 H 773) [id number] 04:41:00 Test Item Value Reference Range Interpretation Comments MAGNESIUM (BEAKER) (test code = 2.0 mg/dL 1.6-2.6 627) [id number] 04:41:00 Test Item Value Reference Range Interpretation Comments PHOSPHORUS (BEAKER) (test code = 4.2 mg/dL 2.3-4.7 604) COMPLEMENT COMPONENT [id number] 04:38:00 Test Item Value Reference Range Interpretation Comments C4 COMPLEMENT (BEAKER) (test code = 28 mg/dL 15-57 394) COMPLEMENT COMPONENT [id number] 04:38:00 Test Item Value Reference Range Interpretation Comments C3 COMPLEMENT (BEAKER) (test code = 103 mg/dL 82-193 393) CBC W/PLT COUNT & AUTO [id number] 04:22:00 Test Item Value Reference Range Interpretation [...] EOSINOPHILS ABSOLUTE COUNT 0.21 K/ L 0.04-0.36 ([facility]) (test code = 416) BASOPHILS ABSOLUTE COUNT ([facility]) 0.06 K/ L 0.01-0.08 (test code = 417) IMMATURE GRANULOCYTES-RELATIVE 0 % 0-1 PERCENT ([facility]) (test code = 2801) POCT-GLUCOSE [id number] 21:46:00 Test Item Value Reference Range Interpretation Comments POC-GLUCOSE METER 173 mg/dL 70-110 H TESTED AT [place] [address] ([facility]) (test code = [facility] D[place] [facility] 1538) [address] POCT-GLUCOSE [id number] 21:46:00 Test Item Value Reference Range Interpretation Comments POC-GLUCOSE METER 154 mg/dL 70-110 H TESTED AT [place] [address] ([facility]) (test code = [facility] [place] [facility] 1538) [address] POCT-GLUCOSE [id number] 18:17:00 Test Item Value Reference Range Interpretation Comments POC-GLUCOSE METER 175 mg/dL 70-110 H TESTED AT [place] [address] ([facility]) (test code = [facility] 1538) [address] RAD, CHEST, 1 VIEW, NON [id number] 14:56:00Reason for exam:->SOBShould this be performed at the bedside?->YesFINAL REPORT INDICATION: SOB COMPARISON: May 13, 2017 TECHNIQUE: Chest radiograph, single view, portable technique. FINDINGS / IMPRESSION: Enlarged heart shadow, small rightpleural effusion, and pulmonary venous congestion, again demonstrated. No pneumothorax or consolidation. Osseous structures unremarkable. Signed: Thania Dwyer MDReport Verified Date/Time: 05/14/2017 14:56:58 Reading Location: [facility] Mammo Reading Room POCT-GLUCOSE [id number] 12:18:00 Test Item Value Reference Range Interpretation Comments POC-GLUCOSE METER 313 mg/dL 70-110 H TESTED AT [place] [address] ([facility]) (test code = [facility] 1538) [address] HIV-1 ANTIGEN WITH HIV-1/2 [id number] 12:07:00 Test Item Value Reference Range Interpretation Comments HIV-1 ANTIGEN WITH HIV 1\\T\\2 Nonreactive Nonreactive ANTIBODY (2) (BEAKER) (test code = 2586) CALCIUM, [id number] 06:37:00 Test Item Value Reference Range Interpretation Comments CALCIUM IONIZED (BEAKER) (test 1.08 mmol/L 1.12-1.27 L code = 698) PH, BLOOD (BEAKER) (test code = 7.25 1810) BASIC METABOLIC [id number] 06:26:00 Test Item Value Reference Range Interpretation [...] pg/mL 0-100 H (test code = 700) [id number] 06:25:00 Test Item Value Reference Range Interpretation Comments PHOSPHORUS (BEAKER) (test code = 5.7 mg/dL 2.3-4.7 H 604) [id number] 06:25:00 Test Item Value Reference Range Interpretation Comments MAGNESIUM (BEAKER) (test code = 1.5 mg/dL 1.6-2.6 L 627) CBC W/PLT COUNT & AUTO [id number] 06:07:00 Test Item Value Reference Range Interpretation [...] PERCENT (BEAKER) (test code = 2801) POCT-GLUCOSE [id number] 22:38:00 Test Item Value Reference Range Interpretation Comments POC-GLUCOSE METER 262 mg/dL 70-[address] [facility] 6720 (BEAKER) (test code = [place] 1538) [address] PROTEIN, RANDOM [id number] 22:18:00 Test Item Value Reference Range Interpretation Comments PROTEIN, URINE (BEAKER) (test code 641 mg/dL 0-14 H = 1569) CREATININE, RANDOM [id number] 22:07:00 Test Item Value Reference Range Interpretation Comments CREATININE URINE (BEAKER) (test 124.9 mg/dL code = 375) Reference Range: No NormalsURINALYSIS W/ [id number] 22:03:00 Test Item Value Reference Range Interpretation [...] 1585) SOURCE(BEAKER) (test code = Urine, Voided 2477) [id number] 19:49:00 Test Item Value Reference Range Interpretation Comments SODIUM (BEAKER) (test 136 meq/L 136-145 code = 381) POTASSIUM (BEAKER) 5.1 meq/L 3.5-5.1 Specimen slightly (test code = 379) hemolyzed CHLORIDE (BEAKER) 104 meq/L 98-107 (test code = 382) CO2 (BEAKER) (test 25 meq/L 22-29 code = 355) Call if K > 5POCT-GLUCOSE [id number] 11:37:00 Test Item Value Reference Range Interpretation Comments POC-GLUCOSE METER 293 mg/dL 70-[address] [facility] 6720 [facility] (test code = JULIANO Osborne [place] 1538) [address] RAD, CHEST, 1 VIEW, NON [id number] 10:22:00Reason for exam:->SOBShould this be performed at the bedside?->YesFINAL REPORT Chest one view Discussion: There is cardiomegaly and interstitial congestion. A small right-sided effusion is noted. No pneumothorax. IMPRESSIONS: Suspected CHF. Signed: Jeannette Nava Verified Date/Time: 05/13/2017 10:22:34 Reading Location: [facility] Radiology Reading Room POCT-GLUCOSE METER 2017-05-13 08:34:00 Test Item Value Reference Range Interpretation Comments POC-GLUCOSE METER 178 mg/dL 70-[address] [facility] 6720 (BEAKER) (test code = [place] 1538) [address] POCT-GLUCOSE [id number] 06:53:00 Test Item Value Reference Range Interpretation Comments POC-GLUCOSE METER 167 mg/dL 70-[address] [facility] 6720 (BEAKER) (test code = MAT[place]IASAMANDA [place] 1538) [address] [id number] 04:48:00 Test Item Value Reference Range Interpretation Comments BLOOD UREA NITROGEN (BEAKER) (test 36 mg/dL 7-21 H code = 354) [id number] 04:48:00 Test Item Value Reference Range Interpretation Comments SODIUM (BEAKER) (test code = 381) 139 meq/L 136-145 POTASSIUM (BEAKER) (test code = 5.2 meq/L 3.5-5.1 H 379) CHLORIDE (BEAKER) (test code = 382) 109 meq/L 98-107 H CO2 (BEAKER) (test code = 355) 23 meq/L 22-29 [id number] 04:48:00 Test Item Value Reference Range Interpretation [...] WBC 0-0 (BEAKER) (test code = 413) [id number] 23:29:00 Test Item Value Reference Range Interpretation Comments ACTIVATED CLOTTING TIME 136 sec TEST ED AT [place] [address] [facility] (test code = JULIANO Osborne [place] [address]) [address] [id number] 20:13:00 Test Item Value Reference Range Interpretation Comments ACTIVATED CLOTTING TIME 175 sec TEST ED AT [place] [address] ([facility]) (test code = JULIANO Osborne [place] [address]) [address] [id number] 18:36:00 Test Item Value Reference Range Interpretation Comments ACTIVATED CLOTTING TIME 202 sec TEST ED AT [place] [address] ([facility]) (test code = JULIANO Osborne [place] [address]) [address] [id number] 18:03:00 Test Item Value Reference Range Interpretation Comments ACTIVATED CLOTTING TIME 208 sec TEST ED AT [place] [address] ([facility]) (test code = JULIANO Osborne [place] [address]) [address] BASIC METABOLIC [id number] 11:57:00 Test Item Value Reference Range Interpretation [...] NOT APPLICABLE FOR DIALYSIS PATIEN TS. PROTHROMBIN [id number] 11:15:00 Test Item Value Reference Range Interpretation [...] if on CoumadinCBC W/PLT COUNT & AUTO [id number] 11:01:00 Test Item Value Reference Range Interpretation [...] PERCENT (BEAKER) (test code = 2801) POCT-GLUCOSE [id number] 12:35:00 Test Item Value Reference Range Interpretation Comments POC-GLUCOSE METER 249 mg/dL 70-[address] [facility] 67 ([facility] (test code = JULIANO Osborne [facility] 1538) [address] POCT-GLUCOSE [id number] 09:10:00 Test Item Value Reference Range Interpretation Comments POC-GLUCOSE METER 155 mg/dL 70-110 H TESTED AT [place] [address] ([facility]) (test code = MATTHIASMT Dylon [facility] 1538) [address] BASIC METABOLIC [id number] 05:39:00 Test Item Value Reference Range Interpretation [...] S NOT APPLICABLE FOR DIALYSIS PATIEN TS. [id number] 05:27:00 Test Item Value Reference Range Interpretation Comments PHOSPHORUS [facility] (test code = 5.0 mg/dL 2.3-4.7 H 604) [id number] 05:27:00 Test Item Value Reference Range Interpretation Comments MAGNESIUM ([facility] (test code = 1.6 mg/dL 1.6-2.6 627) POCT-GLUCOSE [id number] 05:25:00 Test Item Value Reference Range Interpretation Comments POC-GLUCOSE METER 144 mg/dL 70-110 H TESTED AT [place] [address] ([facility]) (test code = [facility] 1538) [address] PROTHROMBIN [id number] 04:58:00 Test Item Value Reference Range Interpretation Comments PROTIME ([facility]) (test code = 14.2 seconds 11.7-14.7 759) INR ([facility]) (test code = 370) 1.1 <=5.9 RECOMMENDED COUMADIN/WARFARIN INR THERAPY RANGESSTANDARD DOSE: 2.0 - 3.0 Includes: PROPHYLAXIS forvenous thrombosis, systemic embolization; TREATMENT for venous thrombosis and/or pulmonary embolus.HIGH RISK: Target INR is 2.5-3.5 for patients with mechanical heart valves.POCT-GLUCOSE [id number] 23:55:00 Test Item Value Reference Range Interpretation Comments POC-GLUCOSE METER 86 mg/dL 70-110 TESTED AT [place] [address] ([facility]) (test code = [facility] [address] 1538) B-TYPE NATRIURETIC FACTOR (BNP)2017-04-22 18:13:00 Test Item Value Reference Range Interpretation Comments B-TYPE NATRIURETIC PEPTIDE 1203 pg/mL 0-100 H ([facility]) (test code = 700) POCT-GLUCOSE [id number] 17:36:00 Test Item Value Reference Range Interpretation Comments POC-GLUCOSE METER 259 mg/dL 70-110 H TESTED AT [place] [address] ([facility]) (test code = [facility] 1538) [address] HEMOGLOBIN [id number] 14:24:00 Test Item Value Reference Range Interpretation Comments HEMOGLOBIN A1C ([facility]) (test code = 10.5 % 4.3-6.1 H 368) POCT-GLUCOSE [id number] 12:34:00 Test Item Value Reference Range Interpretation Comments POC-GLUCOSE METER 207 mg/dL 70-[address] [facility] 6720 (BEAKER) (test code = JULIANO REYEZ 1538) [address] [id number] 07:53:00 Test Item Value Reference Range Interpretation Comments PHOSPHORUS (BEAKER) (test code = 3.9 mg/dL 2.3-4.7 604) [id number] 07:53:00 Test Item Value Reference Range Interpretation Comments MAGNESIUM (BEAKER) (test code = 1.6 mg/dL 1.6-2.6 627) BASIC METABOLIC [id number] 07:53:00 Test Item Value Reference Range Interpretation [...] NOT APPLICABLE FOR DIALYSIS PATIEN TS. TROPONIN [id number] 07:29:00 Test Item Value Reference Range Interpretation [...] acidosis, acute neurological disease, and persistent tachyarrhythmia.PROTHROMBIN [id number] 07:01:00 Test Item Value Reference Range Interpretation Comments PROTIME (ROBERT) (test code = 13.8 seconds 11.7-14.7 759) INR (ROBERT) (test code = 370) 1.1 <=5.9 RECOMMENDED COUMADIN/WARFARIN INR THERAPY RANGESSTANDARD DOSE: 2.0 - 3.0 Includes: PROPHYLAXIS forvenous thrombosis, systemic embolization; TREATMENT for venous thrombosis and/or pulmonary embolus.HIGH RISK: Target INR is 2.5-3.5 for patients with mechanical heart valves.POCT-GLUCOSE [id number] 06:28:00 Test Item Value Reference Range Interpretation Comments POC-GLUCOSE METER 198 mg/dL 70-[address] [facility] 6720 (ROBERT) (test code = [place]O [place] 1538) [address] CREATINE KINASE (CK), TOTAL AND [id number] 00:49:00 Test Item Value Reference Range Interpretation Comments CREATINE KINASE TOTAL (ROBERT) 69 U/L 29-200 (test code = 380) CREATINE KINASE-MB (ROBERT) (test 4.3 ng/mL 0.0-6.6 code = 750) CREATINE KINASE-MB INDEX (ROBERT) 6.2 % (test code = 395) CK-MB Reference Range:<6.7 Normal6.7-10.0 Borderline>10.0 AbnormalTROPONIN [id number] 00:49:00 Test Item Value Reference Range Interpretation [...] acidosis, acute neurological disease, and persistent tachyarrhythmia.POCT-GLUCOSE [id number] 20:44:00 Test Item Value Reference Range Interpretation Comments POC-GLUCOSE METER 269 mg/dL 70-[address] [facility] 8623 (ROBERT) (test code = JULIANO REYEZ 1533) [address]
[2021-06-29] MEDS ORDERED: PANTOPRAZOLE 40 MG INJ ONE (13:10)
[2021-06-29] MEDS ORDERED: ONDANSETRON 4 MG/2 ML VIAL ONE (13:10)
[2021-06-29] MEDS ORDERED: NA CHLORIDE 0.9% 500 ML ONE ×2 (13:10→16:17)
[2021-06-29 13:19] LABS: Absolute Lymphocytes (CBC) 0.6 K/uL (0.7-4.9); Hematocrit 25.4 % (36.0-45.0); Lymphocytes % 6.3 % (15.3-44.8); MPV 7.2 fL (7.6-11.3); RBC Red Blood Cell Count 2.86 M/uL (3.86-4.86)
[2021-06-29 13:33] LABS: Protime INR 2.15
[2021-06-29 13:50] LABS: Albumin 1.2 g/dL (3.4-5.0); Bilirubin Direct 0.3 mg/dL (0-0.2); Bilirubin Total 0.4 mg/dL (0.2-1.0); Magnesium 2.2 mg/dL (1.8-2.4); Potassium 4.5 mmol/L (3.5-5.1); Protein, Total 4.8 g/dL (6.4-8.2)
[2021-06-29 13:55] LABS: Troponin High Sensitivity 205.9 pg/mL (<58.9)
[2021-06-29 13:57] LABS: Platelet Estimate ADEQ; White Blood Cell Scan OK (OK)
[2021-06-29 13:58] LABS: Blood Morphology Comment NOT SEEN (NOT SEEN)
[2021-06-29 14:13] LABS: Urine Blood Trace-lysed (Negative); Urine Glucose Negative (Negative); Urine Protein 1+ (Negative)
--- NOTE | 2021-06-29 14:32 | RAD REPORT ---
EXAM DESCRIPTION: RAD - Chest Single View - 06/29/2021 2:02 pm CLINICAL HISTORY: vomiting COMPARISON: Portable 06/11/2021 TECHNIQUE: AP portable chest image was obtained 06/29/2021 2:02 pm in spine positioning. FINDINGS: Mildly prominent interstitial markings seen in the left hemithorax. Skin fold artifact ove rlies the lateral left chest. Right pleural effusion is present similar to the June 11 study. Right lung base atelectasis is present. Upper lobe vasculature within normal limits. Heart size within normal limits and similar to prior imaging. No pneumothorax identified. Anterior p neumothorax can be occult on the supine portable chest exam. Left-sided dialysis catheter in place. Sternotomy wires are noted. No acute bony abnormality seen. No acute aortic findings suspected. IMPRESSION: Right base pleural effusion and lung parenchymal opacification not substantially differe nt from June 11. Overall no significant change from comparison.
[2021-06-29 14:34] LABS: Urine Bacteria <20 /HPF (<20); Urine RBC <5 /HPF (NONE SEEN); Urine Yeast PRESENT (NONE SEEN)
--- NOTE | 2021-06-29 14:50 | ER ---
Nurse's Notes [facility] Name: Christy Priest Age: 66 yrs Sex: Female : 1955 Arrival Date: 06/29/2021 Time: 12:21 Bed 30 Private MD: Diagnosis: GI Bleed/ Gastrointestinal hemorrhage, unspecified;Anemia, unspecified;Hypotension, unspecified Presentation: 06/29 12:28 Chief complaint: EMS states: toned out to [facility] for vomiting dark brown emesis ld1 with clots. EMS reports possible upper GI bleed with Int abdominal pain. Coronavirus screen: At this time, the client does not indicate any symptoms associated with coronavirus-19. Ebola Screen: No symptoms or risks identified at this time. Initial Sepsis Screen: Does the patient meet any 2 criteria? No. Patient's initial sepsis screen is negative. Does the patient have a suspected source of infection? No. Patient's initial sepsis screen is negative. Risk Assessment: Do you want to hurt yourself or someone else? Patient reports no desire to harm self or others. Onset of symptoms was June 29, 2021. 12:28 Method Of Arrival: EMS: [facility] ld1 12:28 Acuity: DENNY 3 ld1 Triage Assessment: 12:36 General: Appears in no apparent distress. comfortable, Behavior is calm, cooperative, ld1 appropriate for age. Pain: Complains of pain in abdomen Pain does not radiate. Pain currently is 3 out of 10 on a pain scale. Quality of pain is described as aching, throbbing, Pain began 2-3 days ago. Is intermittent. EENT: No signs and/or symptoms were reported regarding the EENT system. Neuro: Level of Consciousness is awake, alert, obeys commands, Oriented to person, place, time, situation. Cardiovascular: Capillary refill < 3 seconds Patient's skin is warm and dry. Respiratory: Airway is patent Respiratory effort is even, unlabored, Respiratory pattern is regular, symmetrical. GI: Abdomen is flat, non-distended, Reports upper abdominal pain, nausea, vomiting. : No signs and/or symptoms were reported regarding the genitourinary system. Derm: No signs and/or symptoms reported regarding the dermatologic system. Musculoskeletal: No signs and/or symptoms reported regarding the musculoskeletal system. Historical: - Allergies: 12:36 Morphine; ld1 12:36 Nitroglycerin; ld1 12:36 tramadol; ld1 12:36 Vancomycin; ld1 - PMHx: 12:36 COPD; diabetes mellitus; Dialysis; Hypertensive disorder; neuropathy; ld1 - PSHx: 12:36 Bipass SX; ld1 - Immunization history:: Adult Immunizations up to date, Client reports receiving the 2nd dose of the Covid vaccine. - Social history:: Smoking status: Patient reports the use of cigarette tobacco products, Patient/guardian denies using alcohol. Screenin:40 Abuse screen: Denies threats or abuse. Denies injuries from another. Nutritional ld1 screening: No deficits noted. Tuberculosis screening: No symptoms or risk factors identified. Fall Risk None identified. Assessment: 12:40 Reassessment: see triage assessment. ld1 15:30 Reassessment: Patient and/or family updated on plan of care and expected duration. Pain ld1 level reassessed. Notified ERP of VS. See MAR for orders. Patient states symptoms have not improved. 16:30 Reassessment: Patient appears in no apparent distress at this time. No changes from ld1 previously documented assessment. 17:00 Reassessment: Patient appears in no apparent distress at this time. daughter at bedside.ld1 18:30 Reassessment: Called report to GUILHERME Harrington - [facility]. ld1 18:50 Reassessment: Patient appears in no apparent distress at this time. No changes from ld1 previously documented assessment. Laying in bed resting with daughter at bedside. Denies concerns at this time. RR17. 20:46 Reassessment: Patient appears in no apparent distress at this time. No changes from ld1 previously documented assessment. Vital Signs: 12:28 BP 91 / 56; ld1 12:36 Pulse 62; Resp 18; Pulse Ox 90% on 3 lpm NC; ld1 13:36 BP 108 / 45; Pulse 94; Resp 20; Temp 98.0(TE); Pulse Ox 91% on 3 lpm NC; iw 15:30 BP 84 / 60; Pulse 92; Resp 18; Pulse Ox 90% on 3 lpm NC; ld1 16:22 BP 92 / 69; Pulse 80; Resp 28; Pulse Ox 100% on 3 lpm NC; ld1 17:00 BP 101 / 74; Pulse 78; Resp 18; Pulse Ox 100% on 3 lpm NC; ld1 17:51 BP 99 / 48; Pulse 77; Resp 17; Pulse Ox 97% on 3 lpm NC; ld1 18:24 BP 102 / 47; Pulse 77; Resp 18; Pulse Ox 100% on 3 lpm NC; ld1 18:49 BP 94 / 68; Pulse 77; Resp 17; Pulse Ox 99% on R/A; ld1 20:32 BP 89 / 63; Pulse 77; Resp 18; Pulse Ox 99% on 3 lpm NC; ld1 20:46 BP 107 / 64; Pulse 81; Resp 21; Pulse Ox 100% on 3 lpm NC; ld1 ED Course: 12:21 Patient arrived in ED. em1 12:25 Alessio Zarate PA is PHCP. cp 12:26 Jurgen Nettles MD is Attending Physician. cp 12:28 Radha Patel RN is Primary Nurse. ld1 12:36 Triage completed. ld1 12:36 Arm band placed on right wrist. ld1 12:40 Patient has correct armband on for positive identification. Placed in gown. Bed in low ld1 position. Call light in reach. Side rails up X2. barrel driller on. Pulse ox on. NIBP on. Door closed. Noise minimized. Warm blanket given. 12:47 EKG done, by technical support technician. 13:20 Inserted saline lock: 20 gauge in right antecubital area, using aseptic technique. ld1 Blood collected. 13:29 CT Chest Abdomen Pelvis W/O Contrast In Process Unspecified. EDMS 14:04 XRAY Chest (1 view) In Process Unspecified. EDMS 14:05 COVID-19/FLU A+B (Document "Date of Onset" if Symptomatic) Sent. ld1 14:05 Urine Microscopic Only Sent. ld1 15:54 Inserted saline lock: 22 gauge in right forearm, using aseptic technique. dh3 21:33 No provider procedures requiring assistance completed. Patient transferred, IV remains ld1 in place. Administered Medications: 13:20 Drug: ProTONIX (pantoprazole) 40 mg Route: IVP; Site: right antecubital; ld1 13:20 Drug: ProTONIX (pantoprazole) 8 mg/hr Route: IV; Rate: 25 ml/hr; Site: right ld1 antecubital; 13:20 Drug: Zofran (Ondansetron) 4 mg Route: IVP; Site: right antecubital; ld1 13:20 Drug: NS 0.9% 250 ml Route: IV; Rate: bolus; Site: right antecubital; ld1 15:29 Drug: NS 0.9% 250 ml Route: IV; Rate: bolus; Site: right antecubital; ld1 15:30 Drug: Rocephin - (cefTRIAXone) 1 grams Route: IVPB; Infused Over: 30 mins; Site: right ld1 antecubital; Outcome: 14:49 ER care complete, transfer ordered by . cp 21:33 Transferred by ground EMS to [facility]. ld1 21:33 Condition: stable 21:33 Instructed on the need for transfer. 21:33 Patient left the ED. ld1 Signatures: Dispatcher [employer] EDMS Tsering Underwood, GUILHERME RN iw [place] em1 Alessio Zarate PA PA Huong Robertson [facility] Radha Patel RN RN ld1 Yesenia Madison Corrections: (The following items were deleted from the chart) 14:37 13:36 BP 108 / 45; Pulse 94bpm; Resp 20bpm; Pulse Ox 91% 3 lpm Nasal Cannula; ld1 karla
--- NOTE | 2021-06-29 14:50 | EDPHYS ---
Physician Documentation [facility] Name: Christy Priest Age: 66 yrs Sex: Female : 1955 Arrival Date: 06/29/2021 Time: 12:21 Bed 30 Private MD: ED Physician Jurgen Nettles HPI: 06/29 12:30 This 66 yrs old Female presents to ER via EMS with complaints of Nausea and Vomiting. cp 12:30 The patient presents to the emergency department with nausea, with "dry heaves", cp vomiting, that is continuous, described as dark brown. Onset: The symptoms/episode began/occurred this morning. Possible causes: unknown. Associated signs and symptoms: Pertinent positives: GI bleeding, Pertinent negatives: diarrhea, fever. Severity of symptoms: in the emergency department the symptoms are unchanged despite EMS interventions. Historical: - Allergies: 12:36 Morphine; ld1 12:36 Nitroglycerin; ld1 12:36 tramadol; ld1 12:36 Vancomycin; ld1 - PMHx: 12:36 COPD; diabetes mellitus; Dialysis; Hypertensive disorder; neuropathy; ld1 - PSHx: 12:36 Bipass SX; ld1 - Immunization history:: Adult Immunizations up to date, Client reports receiving the 2nd dose of the Covid vaccine. - Social history:: Smoking status: Patient reports the use of cigarette tobacco products, Patient/guardian denies using alcohol. ROS: 12:35 Constitutional: Positive for poor PO intake, Negative for body aches, chills, fever. cp 12:35 Cardiovascular: Negative for chest pain. cp 12:35 Abdomen/GI: Positive for nausea, hematemesis, Negative for abdominal pain, diarrhea, black/tarry stool, rectal bleeding. Exam: 12:40 Constitutional: The patient appears in no acute distress, alert, awake, cp non-diaphoretic, non-toxic, well developed, frail. 12:40 Head/Face: Normocephalic, atraumatic. cp 12:40 Eyes: Periorbital structures: appear normal, Conjunctiva: normal, no exudate, no injection, Sclera: no appreciated abnormality, Lids and lashes: appear normal, bilaterally. 12:40 ENT: External ear(s): are unremarkable, Nose: is normal, Mouth: Lips: moist, Oral mucosa: moist, Posterior pharynx: Airway: no evidence of obstruction, patent. 12:40 Neck: ROM/movement: is normal, is supple, without pain, no range of motions limitations. 12:40 Chest/axilla: Inspection: normal, Palpation: is normal, no crepitus, no tenderness. 12:40 Cardiovascular: Rate: normal, Rhythm: regular, Edema: mild left lower leg, JVD: is not appreciated. 12:40 Respiratory: the patient does not display signs of respiratory distress, Respirations: normal, no use of accessory muscles, no retractions, labored breathing, is not present, Breath sounds: decreased breath sounds, that are mild, throughout, stridor, is not appreciated, wheezing: is not appreciated. 12:40 Abdomen/GI: Inspection: abdomen appears normal, Bowel sounds: active, all quadrants, Palpation: soft, in all quadrants, mild abdominal tenderness, in the left lower quadrant, rebound tenderness, is not appreciated, voluntary guarding, is not appreciated, involuntary guarding, is not appreciated, Rectal exam: Stool: brown, guaiac negative. 12:40 Back: pain, is absent, ROM is normal. 12:40 Neuro: Orientation: to person, place \\T\\ time. Mentation: is normal. 12:45 ECG was reviewed by the Attending Physician. cp Vital Signs: 12:28 BP 91 / 56; ld1 12:36 Pulse 62; Resp 18; Pulse Ox 90% on 3 lpm NC; ld1 13:36 BP 108 / 45; Pulse 94; Resp 20; Temp 98.0(TE); Pulse Ox 91% on 3 lpm NC; iw 15:30 BP 84 / 60; Pulse 92; Resp 18; Pulse Ox 90% on 3 lpm NC; ld1 16:22 BP 92 / 69; Pulse 80; Resp 28; Pulse Ox 100% on 3 lpm NC; ld1 17:00 BP 101 / 74; Pulse 78; Resp 18; Pulse Ox 100% on 3 lpm NC; ld1 17:51 BP 99 / 48; Pulse 77; Resp 17; Pulse Ox 97% on 3 lpm NC; ld1 18:24 BP 102 / 47; Pulse 77; Resp 18; Pulse Ox 100% on 3 lpm NC; ld1 18:49 BP 94 / 68; Pulse 77; Resp 17; Pulse Ox 99% on R/A; ld1 20:32 BP 89 / 63; Pulse 77; Resp 18; Pulse Ox 99% on 3 lpm NC; ld1 20:46 BP 107 / 64; Pulse 81; Resp 21; Pulse Ox 100% on 3 lpm NC; ld1 MDM: 12:30 Patient medically screened. cp 13:00 Differential diagnosis: gastritis, cholecystitis, pancreatitis, diverticulitis, viral cp gastroenteritis, gastroenteritis, peptic ulcer disease. 06/29 12:29 Order name: Basic Metabolic Panel; Complete Time: 14:39 cp 06/29 14:40 Interpretation: Normal except: GLUC 135; BUN 24; GFR 8; CA 7.7. cp 06/29 12:29 Order name: CBC with Diff; Complete Time: 14:39 cp 06/29 13:27 Interpretation: Normal except: RBC 2.86; HGB 8.1; HCT 25.4; PLT 172; RDW 19.4; MPV 7.2; cp GOOD% 90.8; LYM% 6.3; MN% 2.6; NEUT A 8.2; LYMA 0.6. 06/29 12:29 Order name: LFT's; Complete Time: 14:39 cp 06/29 14:41 Interpretation: Normal except: ALK 275; BILID 0.3; TP 4.8; ALB 1.2; GLOB 3.6; A/G 0.3. cp 06/29 12:29 Order name: Magnesium; Complete Time: 14:39 cp 06/29 12:29 Order name: NT PRO-BNP; Complete Time: 14:39 cp 06/29 17:31 Interpretation: Reviewed. cp 06/29 12:29 Order name: PT-INR; Complete Time: 13:37 cp 06/29 13:37 Interpretation: Reviewed. cp 06/29 12:29 Order name: Troponin HS; Complete Time: 14:39 cp 06/29 12:29 Order name: Type And Screen cp 06/29 12:29 Order name: Lactate; Complete Time: 13:37 cp 06/29 12:29 Order name: Procalcitonin; Complete Time: 14:39 cp 06/29 14:42 Interpretation: Abnormal: Procalcitonin 23.11. cp 06/29 12:29 Order name: Ptt, Activated; Complete Time: 13:37 cp 06/29 13:38 Interpretation: Reviewed. cp 06/29 12:29 Order name: Blood Culture Adult (2) cp 06/29 12:29 Order name: Lipase; Complete Time: 14:39 cp 06/29 13:15 Order name: Urine Microscopic Only; Complete Time: 14:39 cp 06/29 14:42 Interpretation: Normal except: UWBC 5-10; YEAST PRESENT. cp 06/29 12:29 Order name: XRAY Chest (1 view); Complete Time: 14:39 cp 06/29 12:29 Order name: EKG; Complete Time: 12:30 cp 06/29 12:29 Order name: Cardiac monitoring; Complete Time: 12:40 cp 06/29 12:29 Order name: EKG - Nurse/Tech; Complete Time: 12:40 cp 06/29 12:29 Order name: CT Chest Abdomen Pelvis W/O Contrast cp 06/29 13:15 Order name: COVID-19/FLU A+B (Document "Date of Onset" if Symptomatic); Complete Time: cp 16:11 06/29 13:58 Order name: CBC Smear Scan; Complete Time: 14:39 EDAZ 06/29 14:04 Order name: Packed RBC Leukored EDAZ 06/29 14:13 Order name: Urine Dipstick-Ancillary; Complete Time: 14:39 EDAZ 06/29 14:43 Interpretation: Normal except: UKET Trace; UBLD Trace-lysed; UPROT 1+; U NIT Positive; cp UESTR Trace. 06/29 14:36 Order name: Urine Culture EDAZ 06/29 12:29 Order name: IV Saline Lock; Complete Time: 13:04 cp 06/29 12:29 Order name: Labs collected and sent; Complete Time: 13:05 cp 06/29 12:29 Order name: O2 Per Protocol; Complete Time: 12:40 cp 06/29 12:29 Order name: O2 Sat Monitoring; Complete Time: 12:40 cp 06/29 13:15 Order name: Cath; Complete Time: 14:05 cp 06/29 13:15 Order name: Urine Dipstick-Ancillary (obtain specimen); Complete Time: 14:05 cp EC:45 Rate is 68 beats/min. Rhythm is regular. NH interval is normal. QRS interval is cp prolonged at 126 msec. QT interval is normal. Interpreted by me. Reviewed by me. Administered Medications: 13:20 Drug: ProTONIX (pantoprazole) 40 mg Route: IVP; Site: right antecubital; ld1 13:20 Drug: ProTONIX (pantoprazole) 8 mg/hr Route: IV; Rate: 25 ml/hr; Site: right ld1 antecubital; 13:20 Drug: Zofran (Ondansetron) 4 mg Route: IVP; Site: right antecubital; ld1 13:20 Drug: NS 0.9% 250 ml Route: IV; Rate: bolus; Site: right antecubital; ld1 15:29 Drug: NS 0.9% 250 ml Route: IV; Rate: bolus; Site: right antecubital; ld1 15:30 Drug: Rocephin - (cefTRIAXone) 1 grams Route: IVPB; Infused Over: 30 mins; Site: right ld1 antecubital; Disposition: 06/30 09:02 Co-signature as Attending Physician, Jurgen Nettles MD I agree with the assessment and rn plan of care. Attestation: The patient's history, exam findings, diagnostics, and a summary of any interventions or procedures was reviewed in detail with Alessio LEWIS. Disposition Summary: 06/29/21 14:49 Transfer Ordered Transfer Location: [facility] cp Reason: Higher level of care cp Condition: Serious cp Problem: new cp Symptoms: have improved cp Accepting Physician: DR Sanchez(06/29/21 21:33) ld1 Diagnosis - GI Bleed/ Gastrointestinal hemorrhage, unspecified cp - Anemia, unspecified cp - Hypotension, unspecified cp Forms: - Medication Reconciliation Form cp - SBAR form cp Signatures: Dispatcher [employer] EDJurgen No MD MD rn Attema, Lee, ARSON INVESTIGATOR-C ARSON INVESTIGATOR-[facility] Alessio Zarate PA PA cp Dibbern, Lauren RN RN ld1 Corrections: (The following items were deleted from the chart) 06/29 17:27 14:49 Doctor cp cp 17:53 17:27 DR Sanchez cp cp 21:33 17:53 DR Sanchez cp ld1
[2021-06-29] MEDS ORDERED: NA CHLORIDE 0.9% 0 ML ONE (15:26)
[2021-06-29] MEDS ORDERED: CEFTRIAXONE 1000 MG/VIAL ONE (15:26)
[2021-06-29 15:47] LABS: SARS-COV-2 RT PCR NEGATIVE (NEGATIVE)
--- NOTE | 2021-06-29 22:17 | RAD REPORT ---
EXAM DESCRIPTION: CT - Chest Abd Pelvis Wo Con - 06/29/2021 3:30 pm CLINICAL HISTORY: Chest and abdominal pain hematemesis COMPARISON: 2018 TECHNIQUE: Computed axial tomography of the chest, abdomen and pelvis was obtained. Oral contrast wa s given. IV contrast was not requested. All CT scans are performed using dose optimization technique as appropriate and may include automated exposure control or mA/KV adjustment according to patient size. FINDINGS: The evaluation of mediastinum, wong, vessels and solid organs is limited secondary to the lack of IV contrast administration Moderate loculated right pleural effusion. Small left pleural effusion. Mild right atelectasis. Minimal ground-glass opacities left upper lobe No mediastinal or hilar lymphadenopathy. No pericardial effusion. Postsurgical changes involve the stomach. The liver, spleen, pancreas, adrenals and kidneys appear grossly normal There is no evidence of diverticulitis. A small amount of ascites. Bladder distention. Moderate amount stool within the colon. Atherosclerotic changes. Diffuse edema wi thin the subcutaneous tissues. A preliminary report was given after completion of the exam. This dictation is delayed due to technic al issues with pacs/fluency IMPRESSION: Moderate loculated right and small left pleural effusions Bladder distention
[2021-06-29 23:12] VITALS: TEMP 98
[2021-06-29 23:22] VITALS: BP 107/64; O2SAT 100
--- NOTE | 2021-07-02 11:21 | EKG ---
Test Date: 2021-06-29 Test Time: 12:35:53 Behavioral Therapist: MEASUREMENT RESULTS: Intervals: Rate: 82 [place]: 202 QRSD: 120 QT: 462 QTc: 539 [place]: P: 38 [place]: 202 QRS: 129 T: 143 INTERPRETIVE STATEMENTS: Undetermined rhythm Left posterior fascicular block Anterior infarct, age undetermined Abnormal ECG Compared to ECG 06/11/2021 13:33:34 Sinus rhythm no longer present Right bundle-branch block no longer present Bifascicular block no longer present Myocardial infarct finding still present Electronically Signed On 07-02-21 11:13:35 CDT by Taj Raymond
--- NOTE | 2021-07-03 08:35 | EKG ---
Test Date: 2021-06-29 Test Time: 12:39:52 Warehouse Checker: MEASUREMENT RESULTS: Intervals: Rate: 68 [place]: 200 QRSD: 126 QT: 494 QTc: 525 [place]: P: 72 [place]: 200 QRS: 122 T: 60 INTERPRETIVE STATEMENTS: Sinus rhythm with fusion complexes Nonspecific intraventricular block Abnormal ECG Compared to ECG 06/29/2021 12:35:53 Fusion complex(es) now present Left posterior fascicular block no longer present Myocardial infarct finding no longer present Electronically Signed On 07-03-21 08:28:33 CDT by Taj Raymond
== END 2021-06-29 21:33 | disposition short-term general hospital (02) ==
LOC: ER 12:19
DX: D64.9 Anemia, unspecified (principal); I95.9 Hypotension, unspecified; E11.9 Type 2 diabetes mellitus without complications; I10 Essential (primary) hypertension; Z72.0 Tobacco use; Z99.2 Dependence on renal dialysis; Z88.3 Allergy status to other anti-infective agents; Z88.5 Allergy status to narcotic agent; Z88.8 Allergy status to other drugs, medicaments and biological substances; Z20.822 Contact with and (suspected) exposure to COVID-19
CPT/HCPCS: 93005 ×2; 87040 ×2; 87088; 85025; 87086; 80048; 36415; 86900; 83735; 86850; 85610; 86902; 86901; 80076; 83605; 85730; 84484; 83690; 84145; 86922; 83880; 0240U; 71250; 74176; 71045; 96375; 96374; 99285; C9113; P9016; J7050; J7040; J2405; 81003; 81015